=== PATIENT | female | born 1945 | race Caucasian/White ===

== ENCOUNTER 2018-12-27 15:39 | Outpatient (CLI) | payer MEDICARE, OTHER ==
[~2018-12-27] VITALS: Ht 160 cm; Wt 59.9 kg
[2018-12-27 16:04] VITALS: BP 142/82
[2018-12-28] MEDS ORDERED: ATEN25TA PO (12:28)
[2018-12-28] MEDS ORDERED: TRIA1TAB3 PO (12:28)
[2018-12-28] MEDS ORDERED: ASPI-586 PO (12:28)
[2018-12-28] MEDS ORDERED: DICL100G31 TP (12:28)
[2018-12-28] MEDS ORDERED: LEVO100T PO (12:28)
== END 2018-12-27 16:05 | disposition home or self-care (01) ==
LOC: PREOP 15:39
PROVIDERS: ATTEND Podiatrist Foot & Ankle Surgery
DX: Z01.818 Encounter for other preprocedural examination (principal)
CPT/HCPCS: 87081

== ENCOUNTER 2019-01-15 09:12 | Day surgery (SDC) | payer MEDICARE, OTHER ==
[2019-01-15] VITALS (11 sets, daily range): BP systolic 115–141; BP diastolic 53–73
[~2019-01-15] VITALS: Ht 160 cm; Wt 59.9 kg
[~2019-01-15 09:12] MED LIST: ASPI-586 PO; ATEN25TA PO; DICL100G31 TP; LEVO100T PO; TRIA1TAB3 PO
[2019-01-15] MEDS ORDERED: ceFAZolin INJECTION 1,000 MG in WATER (STERILE) FOR INJECTION 10 ML IV ONE (09:15)
[2019-01-15] MEDS: LACTATED RINGERS 1,000 ML IV PRN ×2 (09:49→12:20)
[2019-01-15] MEDS ORDERED: ceFAZolin INJECTION 1,000 MG ONE (09:54)
[2019-01-15] MEDS ORDERED: WATER (STERILE) FOR INJECTION 10 ML ONE (09:54)
[2019-01-15] MEDS ORDERED: ONDANSETRON 4 MG/2 ML (SDV) Z0FRAN ONE ×3 (09:55→13:45)
[2019-01-15] MEDS ORDERED: FAMOTIDINE 20MG/2ML IV (PEPCID) ONE (09:55)
[2019-01-15] MEDS ORDERED: SCOPOLAMINE 1.5 MG (TRANSDERM-SCOP) PATCH ONE (09:56)
[2019-01-15] MEDS ORDERED: BUPIVACAINE 0.5% 30 ML (SENSORCAINE) VIAL ONE (10:26)
[2019-01-15] MEDS ORDERED: LIDOCAINE 1% INJ 20 ML 20 ML VIAL ONE (10:26)
[2019-01-15] MEDS ORDERED: DEXAMETHASONE 10 MG/ML (DECADRON) 1 ML VIAL ONE (10:26)
[2019-01-15] MEDS ORDERED: fentaNYL INJECTION 100 MCG/2 ML AMP ONE (10:35)
[2019-01-15] MEDS ORDERED: MIDAZOLAM 2 MG/2 ML (VERSED) VIAL ONE (10:36)
[2019-01-15] MEDS ORDERED: LIDOCAINE PF 2% 5 ML (XYLOCAINE) VIAL ONE (13:07)
[2019-01-15] MEDS ORDERED: SEVOFLURANE (ULTANE) 15 ML INHAL SOLN ONE (13:07)
[2019-01-15] MEDS ORDERED: proPOfol 200 MG/20 ML (DIPRIVAN) VIAL IV ONE (13:07)
--- NOTE | 2019-01-15 13:22 | Progress Note-Pre Operative ---
Pre-Operative Progress Note H&P Reviewed The H&P was reviewed, patient examined and no changes noted. Date Seen by Provider: Jan 15, 2019 Time Seen by Provider: 11:00 Date H&P Reviewed: Jan 15, 2019 Time H&P Reviewed: 11:00 Pre-Operative Diagnosis: Hallux valgus, hypertrophic 2nd, 3rd metatarsals, Hammertoes 2, 3, left TACO MARTINEZ DPM Jan 15, 2019 13:22 POS
--- NOTE | 2019-01-15 13:24 | Progress Note-Post Operative ---
Post-Operative Progess Note Surgeon (s)/Service Writer (s) Surgeon TACO MARTINEZ DPM Service Writer: none Pre-Operative Diagnosis Hallux valgus, hypertrophic 2nd, 3rd metatarsals, Hammertoes 2, 3, left Post-Operative Diagnosis Same plus subluxation of the 2nd and 3rd MTPJs Procedure & Operative Findings Date of Procedure 01/15/19 Procedure Performed/Findings Jose-Benito bunionectomy, 2nd and 3rd metatarsal osteotomies, 2nd and 3rd Hammertoe reduction, left foot Anesthesia Type General Estimated Blood Loss Estimated blood loss (mL): Minimal Specimens/Packing Specimens Removed None TACO MARTINEZ DPM Jan 15, 2019 13:24 POS
[2019-01-15] MEDS ORDERED: CEPH500C PO (13:28)
[2019-01-15] MEDS ORDERED: ACHD5005 PO (13:28)
[2019-01-15] MEDS ORDERED: MEPERIDINE (DEMEROL) INJ 50 MG/ML IVP ONE (13:30)
[2019-01-15] MEDS ORDERED: ONDANSETRON 4 MG/2 ML (SDV) Z0FRAN IVP PRN (13:30)
[2019-01-15] MEDS ORDERED: morphine INJ 10 MG/ML 1ML (SYR OR VIAL) IVP ONE (13:30)
--- NOTE | 2019-01-15 14:05 | NUR ---
TO AMB SURG FROM PAR PER CART. AWAKE, C/O LEFT THIGH PAIN AND CRAMPING, RATES 9 ON NUMERIC SCALE. INDENTATIONS IN SKIN OF UPPER THIGH NOTED FROM SURGICAL TOURNIQUET. STATES LEFT THIGH FEELS "KIND OF TINGLY". IS ABLE TO MOVE LEFT LEG, FEEL TOUCH ON UPPER AND LOWER LEG, SKIN PINK AND WARM. WARM BLANKETS APPLIED TO ANTERIOR AND POSTERIOR LEFT UPPER THIGH, AT BEDSIDE MASSAGING PT'S UPPER THIGH. DENIES LEFT FOOT PAIN. COBAN WRAPPED KERLIX DRESSING D/I TO LEFT FOOT, SPLINT SHOE APPLIED. C/O MILD NAUSEA, SIPS OF WATER AND SALTINE CRACKERS PROVIDED IN ANTICIPATION OF PAIN MEDICATION. LEFT FOOT ELEVATED, ICE PACK AT ANKLE. BED LOW, LOCKED, RAILS UP X2. CALL LIGHT TO PT AND AT SIDE.
[2019-01-15] MEDS ORDERED: HYDROcodone/APAP 5 MG/325 MG (LORTAB) TAB ONE (14:23)
--- NOTE | 2019-01-15 14:27 | NUR ---
HAS HAD CRACKERS AND SIPS OF WATER. LORTAB 5/325 MG, ONE TABLET, GIVEN PO.
[2019-01-15] MEDS ORDERED: HYDROcodone/APAP 5 MG/325 MG (LORTAB) TAB PO PRN (14:30)
--- NOTE | 2019-01-15 14:40 | Anesthesia-General Post-Op ---
General Patient Condition Mental Status/LOC: Same as Preop Cardiovascular: Satisfactory Nausea/Vomiting: Absent Respiratory: Satisfactory Pain: Controlled Complications: Absent Post Op Complications Complications None Follow Up Care/Instructions Patient Instructions None needed. Anesthesia/Patient Condition Patient Condition Patient is doing well, no complaints, stable vital signs, no apparent adverse anesthesia problems. No complications reported per nursing. CHERISE CLARK CRNA Jan 15, 2019 14:40 POS
--- NOTE | 2019-01-15 15:00 | NUR ---
RESTING QUIETLY IN BED, EYES CLOSED. AWAKENS EASILY. REPORTS LEFT THIGH PAIN IMPROVING, NOW RATED 4. NO CHANGE IN LEFT FOOT PAIN/SITE ASSESSMENTS. UNABLE TO VISUALIZE TOES OF LEFT FOOT DUE TO DRESSING. PT STATES SHE HAS A KNEE SCOOTER AT HOME FOR USE WITH NON-WEIGHT BEARING STATUS ON LEFT FOOT. REPORTS NAUSEA HAS EASED SOME.
--- NOTE | 2019-01-15 23:19 | OPERATIVE REPORT ---
DATE OF SERVICE: 01/15/2019 SURGEON: Augusta Gannon DPM PREOPERATIVE DIAGNOSES: 1. Hallux abductovalgus metatarsal primus varus, left. 2. Hypertrophic second and third metatarsals, left. 3. Hammer digit syndrome, left second and third digits. POSTOPERATIVE DIAGNOSES: 1. Hallux abductovalgus metatarsal primus varus, left. 2. Hypertrophic second and third metatarsals, left. 3. Hammer digit syndrome, left second and third digits. 4. Subluxed second metatarsal and third metatarsophalangeal joints. PROCEDURE: 1. Modified Jose-Benito bunionectomy. 2. Second and third metatarsal osteotomies. 3. Reduction of hammertoe 2nd and third digits all left foot. WOUND CLASS: Clean. ANESTHESIA: General. HEMOSTASIS: Pneumatic thigh tourniquet at 250 mmHg. INDICATIONS: This is a 73-year-old female presents complaining of a painful left foot. Conservative therapy has met with unsatisfactory results and the patient is agreeable to surgical intervention after risks and complications were discussed at length. No guarantees were extended to the patient and she is willing to proceed. DESCRIPTION OF PROCEDURE: The patient was brought back to the operating table, placed in secure supine position. General anesthetic was then induced. Appropriate timeout was performed. The left foot was anesthetized with a Cardona block as well as a digital block utilizing 10 mL of 1:1 mixture of 1% Xylocaine, 0.5% Marcaine left foot. The left foot was then prepped and draped in normal sterile manner. The left foot was then elevated and allowed to exsanguinate after which the tourniquet was inflated to 250 mmHg. Attention was then directed to the dorsal aspect of the first metatarsophalangeal joint where a 6 cm longitudinal linear incision was created. The incision was deepened in the same plane with great care to identify and retract all vital neurovascular structures. All the necessary blood vessels were cauterized as encountered. The incision was deepened down to the capsular tissue where a longitudinal capsulotomy was performed. This exposed the hypertrophic medial eminence to the first metatarsal head, which was reduced utilizing a power sagittal saw. The wound was flushed with copious amounts of normal saline. Blunt dissection was carried out into the first intermetatarsal space where a lateral release was performed. The conjoint tendon of the adductor hallucis was identified and then incised. A lateral capsulorrhaphy was performed as well as a release of the fibular sesamoidal ligament. The hallux was then forcibly adducted releasing any additional fibers holding in its abnormal position. Attention was redirected to the medial aspect of the first metatarsal where a Chevron-type osteotomy was performed. This allowed the capital fragment to translocate from medial to lateral and was fixated in an improved position utilizing a 0.062 threaded K-wire from proximal dorsal to plantar distal across the osteotomy. A second K wire was also utilized to secure the metatarsal in appropriate alignment. Again, the K wires were cut, flush with the first metatarsal cortices. The head of the first metatarsal was further contoured and smoothed utilizing a power bur. Attention was then directed to the diaphysis of the proximal phalanx of the left hallux. Subperiosteal dissection was carried out after which a wedge of bone was resected with the base medial and lateral cortices held intact. Once the wedge of bone was resected and the gap closed, there was good reduction of the lateral deviation of the hallux. Utilizing a private pilot hole, a 28-gauge monofilament wire was then able to be passed through the private pilot holes at the dorsal medial aspect of the osteotomy securing the osteotomy in a closed position. Closure was then performed in layers. Deep closure was performed with 3-0 Vicryl, superficial with 4-0 Vicryl and skin closed with 4-0 Prolene in a simple interrupted type stitch. Attention was then directed to the dorsal aspect of the second and third metatarsophalangeal joint area where a 5 cm longitudinal linear incision was created from the surgical neck of the metatarsal to the distal interphalangeal joint of the second and third digits. The incisions were deepened in the same plane with great care to identify and retract all vital neurovascular structures. All the necessary blood vessels were cauterized as encountered. The incision was deepened down to the extensor tendon where a Z slide lengthening was performed overlying the proximal phalanx of the second and third digits. The extensor tendon was reflected proximally and the extensor duncan released overlying the second and third metatarsophalangeal joints. Dorsal capsulorrhaphy was then performed and it was cleared at the base of the proximal phalanx that was articulating with the surgical neck area of the second and third metatarsals. There is complete subluxation of the second and third metatarsophalangeal joints. Next, utilizing a power sagittal saw, a wedge bone was resected from the surgical neck of the second and third metatarsals with the base dorsal and the apices plantarly. This allowed the second metatarsal and third metatarsal to be shortened as well as correct alignment where the base of the proximal phalanx could smoothly articulate with the second and third metatarsal heads again. Utilizing a standard technique, a 2.0 snap-off screw of 12 mm of length was driven from dorsal proximal to plantar distal across the osteotomies. Excellent bony apposition fixation was appreciated at this time. The wounds were flushed with copious amounts of normal saline throughout the procedure. Attention was then directed to the proximal interphalangeal joint of the second and third digits where a peg-in-hole type arthrodesis was performed. The head of the proximal phalanx was fashioned into a peg utilizing power sagittal saw and power bur and a bur was utilized to create a hole in the base of the middle phalanx. Next, a 0.054 smooth K-wire was driven down the toe securing the arthrodesis in a rectus alignment. The excess K wire at the end of the toe was cut and a protective ball placed over the end of the wire. The wounds were flushed with copious amounts of normal saline and closure was performed in layers. Deep closure was performed with 3-0 Vicryl, superficial with 4-0 Vicryl, skin closure with 4-0 Prolene in a horizontal mattress type stitch. Postoperative injection consisted of 12 mL of 1:1 mixture of 1% Xylocaine, 0.5% Marcaine injected in a local infusion to the surgical sites. Postoperative dressing consisted of Betadine soaked Adaptic, sterile 4 x 4, sterile Kerlix all secured with Coban wrap. The patient tolerated the anesthesia and procedure well and was transported from the operating room to the recovery area with vital signs stable and vascular status intact to all digits of the left foot. Postoperative instructions were given today as well as prescription for Keflex and Vicodin. I will see the patient back in 10 days' period of time or sooner if necessary. Job ID: [id number] DocumentID: [id number] Dictated Date: 01/15/2019 13:40:48 Irrigator Date: 01/15/2019 23:18:38 Dictated By: NALINI LINK
--- OUTSIDE RECORDS SUMMARY | 2019-02-09 11:32 | XMS REPORT ---
Author Author [facility] Medic al Staff, YUDITH Munoz Organization [facility] Address [address] [id number] Phone [phone] Summary purpose TRANSITION OF CARE AUTO GENERATION Chief Complaint and Reason for Visit No authorized Reason for Visit (Admitting Diagnosis) is available for this visit . Problem list No authorized problems tracked for continuity of care are available for this vis it. Encounters No authorized problems tracked for encounter diagnoses are available for this vi sit. Medications No medications recorded for this patient visit Allergies, adverse reactions, alerts Allergen Category Ingredient Status Reaction Severity Onset No Known Drug Allergies No known drug allergies No Known Drug Al lergies Confirmed or Verified plastic tape Miscellaneous Allergy plastic tape Confirmed or Verified Immunizations No immunizations recorded for this patient visit Relevant diagnostic tests and/or laboratory data RESULTS Chemistry [id number]:15:00 Result Normal Range Units Sodium 143 134-145 mEq/l Potassium 4.3 3.5-5.1 mEq/l Chloride 101 98-107 mEq/l CO2 H 36.1 22-28 mEq/l Glucose 91 70-105 mg/dl BUN H 31 7-18 mg/dl Creatinine H 1.33 0.6-1.0 mg/dl Calcium 9.4 8.4-10.2 mg/dl PO4 4.0 1.9-4.5 mg/dl Albumin 3.7 3.5-5 g/dl Magnesium 1.7 1.7-2.8 mg/dl Osmolality 291.1 280-300 mOsm/L Anion GAP L 5.9 8-16 BUN/Creatinine Ratio H 23.3 10-20 Estimated GFR L 39 >= 60 mL/min /1.7 History of procedures No procedures recorded for this patient visit. Functional status No functional or cognitive status observations are available for this visit. Vital signs No authorized vital signs are available for this visit. Social history No Social History or smoking status observations were recorded for this visit. ( Unknown if ever smoked.) Treatment Plan No treatment plan text is available for this visit. Hospital discharge instructions No discharge instruction text is available for this visit.
--- OUTSIDE RECORDS SUMMARY | 2019-02-09 11:32 | XMS REPORT ---
Author Author [facility] Medic al Staff, YUDITH Munoz Organization [facility] Address [address] [id number] Phone [phone] Summary purpose TRANSITION OF CARE AUTO GENERATION [...] Relevant diagnostic tests and/or laboratory data RESULTS Radiology Results [id number]:12:00 CT ABD/PEL W CONTRAST PACs Image DATE OF EXAM: Dec 02 2014 [id number] ABD/PELV W CON TRAST : RADIOLOGY REPORT DATE OF SERVICE:12/02/14 HISTORY:Follow-up colon carcinoma, h istory breast carcinoma. CT ABDOMEN/PELVIS WITH CONTRAST 0900 HOURS Through lower thorax pulmonary parenchym al windows, the mediastinum shows no active pathology.The heart is not enlarged.Right mastectomy changes noted. The liver shows mild fatty infiltration. The posterior aspect of the right lobe of the liver is identified si milar to the prior study dated 06/04/14.Small benign cysts are noted .Post-cholecystectomy status is demonstrated.Spleen shows no active pathology.The pancreas appears normal.The adrenal glands are not en larged.Benign-appearing renal cysts are identified similar to prior st udy.The largest is 4.1 cm on the right.There has been r emoval of the cecum.No adenopathy is seen.No recurrent mass lesion is defined.The bladder is clear.No free air or free fluid i s demonstrated.Bowel distribution shows no active pathology. The bony structures do not show evidence of obvious abnormality.Comp ared to the prior study dated 06/04/14, similar appearance is demonstrated. IMPRESSION: 1)Post-right mastectomy status. 2)Post-cholecystectomy status. 3)Small benign hepatic cysts. 4)Small benign right renal cysts. 5)Post-surgical change, right colon, with resection. 6)No evidence of metastatic disease and no change compared to prior study dated 06/04/14. Isma Espinosa DO 12/02/2014 10:09: / 12/02/2014 11:33:31 cc:Dr. Tenzin Coffman This document has been electronically Signed by: On: DATE OF EXAM: Dec 02 2014 [id number] ABD/PELV W CON TRAST : RADIOLOGY REPORT DATE OF SERVICE:12/02/14 HISTORY:Follow-up colon carcinoma, h istory breast carcinoma. CT ABDOMEN/PELVIS WITH CONTRAST 0900 HOURS Through lower thorax pulmonary parenchym al windows, the mediastinum shows no active pathology.The heart is not enlarged.Right mastectomy changes noted. The liver shows mild fatty infiltration. The posterior aspect of the right lobe of the liver is identified si milar to the prior study dated 06/04/14.Small benign cysts are noted .Post-cholecystectomy status is demonstrated.Spleen shows no active pathology.The pancreas appears normal.The adrenal glands are not en larged.Benign-appearing renal cysts are identified similar to prior st y.The largest is 4.1 cm on the right.There has been r emoval of the cecum.No adenopathy is seen.No recurrent mass lesion is defined.The bladder is clear.No free air or free fluid i s demonstrated.Bowel distribution shows no active pathology. The bony structures do not show evidence of obvious abnormality.Comp ared to the prior study dated 06/04/14, similar appearance is demonstrated. IMPRESSION: 1)Post-right mastectomy status. 2)Post-cholecystectomy status. 3)Small benign hepatic cysts. 4)Small benign right renal cysts. 5)Post-surgical change, right colon, with resection. 6)No evidence of metastatic disease and no change compared to prior study dated 06/04/14. Isma Espinosa DO 12/02/2014 10:09: / 12/02/2014 11:33:31 cc:Dr. Tenzin Coffman This document has been electronically Signed by: ISMA ESPINOSA DO On: Dec 02 20141:12P Result Amended on 2014-12-02 at 13:12:11 . Previous status was CT. CT CHEST W/CONT PACs Image DATE OF EXAM: Dec 02 2014 [id number] CHEST W CONTRA ST : RADIOLOGY REPORT DATE OF SERVICE: 12/02/14 HISTORY: Followup colon carcinoma, histo ry of breast carcinoma. 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 This appears to be substernal and does shift the trachea to the right. No change compared to the prior study dated 06/04/2014. Mediastinal adenopathy is not seen. The heart is not enlarged. Post right mastectomy changes noted. The pulmonary parenchymal windows do not show nodule or mass. No pleural thickening or pleural e ffusion can be seen. No change is demonstrated compared to prior study. There is no aneurysmal change. IMPRESSION: 1. 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 2. No evidence of metastatic disease. 3. No change compared to prior study kya ed 06/04/2014. Isma Espinosa DO /nm12/02/2014 10:12:00 / 12/02/2014 11:23:45 cc:Dr. Tenzin Coffman This document has been electronically Signed by: On: DATE OF EXAM: Dec 02 2014 [id number] CHEST W CONTRA ST : RADIOLOGY REPORT DATE OF SERVICE: 12/02/14 HISTORY: Followup colon carcinoma, histo ry of breast carcinoma. 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 This appears to be substernal and does shift the trachea to the right. No change compared to the prior study dated 06/04/2014. Mediastinal adenopathy is not seen. The heart is not enlarged. Post right mastectomy changes noted. The pulmonary parenchymal windows do not show nodule or mass. No pleural thickening or pleural e ffusion can be seen. No change is demonstrated compared to prior study. There is no aneurysmal change. IMPRESSION: 1. 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 2. No evidence of metastatic disease. 3. No change compared to prior study kya ed 06/04/2014. Isma Espinosa DO /nm12/02/2014 10:12:00 / 12/02/2014 11:23:45 cc:Dr. Tenzin Coffman This document has been electronically Signed by: ISMA ESPINOSA DO On: Dec 02 20141:12P Result Amended on 2014-12-02 at 13:12:13 . Previous status was CT. History of procedures No procedures recorded for [...]
--- OUTSIDE RECORDS SUMMARY | 2019-02-09 11:32 | XMS REPORT ---
Author Author [facility] Medic al YUDITH Rivera Organization [facility] Address [address] [id number] Phone [phone] Care Team Providers Care Nurse Sitter Name Role Phone SHANTI GUNN APRN PP [phone] Summary purpose TRANSITION OF CARE AUTO GENERATION [...] tests and/or laboratory data RESULTS Radiology Results [id number]:30:00 US Guided Cyst Aspiration PACs Image DATE OF EXAM: Aug 21 2015 [id number] GUIDED FNA ANY SITE- LEFT: RADIOLOGY REPORT DATE OF SERVICE: 08/21/15 HISTORY: Enlargement of the left thyroid lobe. There is diffuse enlargement of the left lobe and there i s a heterogeneous nodule in its anterolateral aspect. ULTRASOUND GUIDED LEFT THYROID BIOPSY 10 00 HOURS [facility] The skin of the left neck was cleansed with ChloraPrep. Local anesthesia was performed with 5 mL 1% Xylocaine. Four separate fine need le aspirates were performed under ultrasound guidance with permanent image documentation obtained. Two samples were obtained within the sma ller nodule and 2 samples were obtained within the otherwise diffusely enlarged left lobe. These were submitted as a single sample for cytolog ic analysis. Hemostasis was spontaneous. The patient tolerated the p rocedure well and left the Imaging Department in stable condition. IMPRESSION: Successful ultrasound guided fine needle aspiration biopsy of the left thyroid. MD LOREN Herrera/az08/21/2015 11:55:08/07 13:07:05 cc:Dr. Tenzin Coffman This document has been electronically Signed by: On: DATE OF EXAM: Aug 21 2015 [id number] GUIDED FNA ANY SITE- LEFT: RADIOLOGY REPORT DATE OF SERVICE: 08/21/15 HISTORY: Enlargement of the left thyroid lobe. There is diffuse enlargement of the left lobe and there i s a heterogeneous nodule in its anterolateral aspect. ULTRASOUND GUIDED LEFT THYROID BIOPSY 10 00 HOURS [facility] The skin of the left neck was cleansed with ChloraPrep. Local anesthesia was performed with 5 mL 1% Xylocaine. Four separate fine need le aspirates were performed under ultrasound guidance with permanent image documentation obtained. Two samples were obtained within the sma ller nodule and 2 samples were obtained within the otherwise diffusely enlarged left lobe. These were submitted as a single sample for cytolog ic analysis. Hemostasis was spontaneous. The patient tolerated the p rocedure well and left the Imaging Department in stable condition. IMPRESSION: Successful ultrasound guided fine needle aspiration biopsy of the left thyroid. Taj Pires MD Mena/az08/21/2015 11:55:08/07 13:07:05 cc:Dr. Tenzin Coffman This document has been electronically Signed by: TAJ PIRES MD On: Aug 21 20152:30P Result Amended on 2015-08-21 at 14:30:46 . Previous status was SD. History of procedures No procedures recorded for [...]
--- OUTSIDE RECORDS SUMMARY | 2019-02-09 11:33 | XMS REPORT ---
Author Author [facility] Medic al Staff, YUDITH Munoz Organization [facility] Address [address] [place] [place] [id number] Phone [phone] Summary purpose TRANSITION OF CARE AUTO GENERATION [...] tests and/or laboratory data RESULTS Radiology Results [id number]:01:00 Thyroid Scan Dual Uptake PACs Image DATE OF EXAM: Aug 05 2015 [id number] SCAN DUAL UPTAKE : RADIOLOGY REPORT DATE OF SERVICE: 08/04/15 HISTORY: Left thyroid mass RADIONUCLIDE THYROID SCAN AND DUAL UPTAK E I-123 STUDY 1115 HOURS 280 uCi I-123 was administered. Four vega r uptake is abnormally low at 2.9%. 24 hour uptake is slightly subnorm al at 7.8%. Thyroid scan was accomplished with scanning in the AP and bilateral oblique projections. The right lobe is homogenous. The left l obe is enlarged. There is a large oval area of absent uptake in the mid and lateral left thyroid. There is a rim of functioning residual t issue medially in the left lobe. IMPRESSION: 1. Decreased I-123 uptake which may bindu marc mild hypothyroidism. Correlation with thyroid function studie s is recommended. 2. Large nonfunctional area in the left lobe of the thyroid. Although the sonographic appearance is of relativ angel low suspicion, malignancy is not excluded. Biopsy is recommended. Taj Pires MD MWMena/tx08/05/2015 13:14:07/09 13:28:50 cc:Dr. Shandra Holt APRN This document has been electronically Signed by: On: DATE OF EXAM: Aug 05 2015 [id number] SCAN DUAL UPTAKE : RADIOLOGY REPORT DATE OF SERVICE: 08/04/15 HISTORY: Left thyroid mass RADIONUCLIDE THYROID SCAN AND DUAL UPTAK E I-123 STUDY 1115 HOURS 280 uCi I-123 was administered. Four vega r uptake is abnormally low at 2.9%. 24 hour uptake is slightly subnorm al at 7.8%. Thyroid scan was accomplished with scanning in the AP and bilateral oblique projections. The right lobe is homogenous. The left l obe is enlarged. There is a large oval area of absent uptake in the mid and lateral left thyroid. There is a rim of functioning residual t issue medially in the left lobe. IMPRESSION: 1. Decreased I-123 uptake which may bindu marc mild hypothyroidism. Correlation with thyroid function studie s is recommended. 2. Large nonfunctional area in the left lobe of the thyroid. Although the sonographic appearance is of relativ angel low suspicion, malignancy is not excluded. Biopsy is recommended. Taj Pires MD MWMena/nh/ 13:14:07/09 13:28:50 cc:Dr. Shandra Holt APRN This document has been electronically Signed by: TAJ PIRES MD On: Aug 05 20152:01P Result Amended on 2015-08-05 at 14:01:12 . Previous status was NV. History of procedures Procedure Code Code Type Description Date Performed Performing Physician [id number] CPT-4 THYROID IMAGING W/BLOOD FLOW 08-05-2015 SHANDRA BUTTS [id number] CPT-4 IODINE I-123 SOD IODIDE HERMILO 08-05-2015 SHANDRA BUTTS Functional status No functional or cognitive status [...]
--- OUTSIDE RECORDS SUMMARY | 2019-02-09 11:33 | XMS REPORT ---
Author Author [facility] Medic al Staff, YUDITH Munoz Organization [facility] Address [address] [id number] Phone [phone] Summary purpose TRANSITION OF CARE AUTO GENERATION [...] tests and/or laboratory data RESULTS Radiology Results 08-01-646419:47:00 CT ABD/PEL W CONTRAST PACs Image DATE OF EXAM: May 29 2015 [id number] ABD/PELV W CON TRAST : RADIOLOGY REPORT DATE OF SERVICE: 05/29/15 HISTORY: Followup colon carcinoma, remot e history of breast carcinoma. CT ABDOMEN AND PELVIS WITH CONTRAST0 855 HOURS Axial scans were obtained at 5 mm interv als following administration of oral and intravenous contrast. 75 mL Iso yolanda-300 was utilized for intravenous enhancement. The liver shows fatty change. There are scattered small hepatic cysts. The bile ducts are normal in caliber. Th e gallbladder is surgically absent. The pancreas and spleen are norm al. There are bilateral renal cysts. There is a large anterior right r enal cyst measuring 4.7 x 4.5 cm that has increased slightly in size sin e the study of 12/02/2014. No solid renal masses are present. There is no abdominal or pelvic mass or lymphadenopathy. There are changes of pr ior hysterectomy. The bladder is normal. There is no ascites. The bowel l oops are normal. IMPRESSION: No evidence of abdominal or pelvic metastatic disease. Bilateral renal cysts. Status post right mastectomy, cholecystectomy, and hysterectomy. MD LOREN Herrera/ms05/29/2015 09:16:05/09 09:19:26 cc:Dr. Tenzin Coffman This document has been electronically Signed by: On: DATE OF EXAM: May 29 2015 [id number] ABD/PELV W CON TRAST : RADIOLOGY REPORT DATE OF SERVICE: 05/29/15 HISTORY: Followup colon carcinoma, remot e history of breast carcinoma. CT ABDOMEN AND PELVIS WITH CONTRAST0 855 HOURS Axial scans were obtained at 5 mm interv als following administration of oral and intravenous contrast. 75 mL Iso yolanda-300 was utilized for intravenous enhancement. The liver shows fatty change. There are scattered small hepatic cysts. The bile ducts are normal in caliber. Th e gallbladder is surgically absent. The pancreas and spleen are norm al. There are bilateral renal cysts. There is a large anterior right r enal cyst measuring 4.7 x 4.5 cm that has increased slightly in size sinc e the study of 12/02/2014. No solid renal masses are present. There is no abdominal or pelvic mass or lymphadenopathy. There are changes of pr ior hysterectomy. The bladder is normal. There is no ascites. The bowel l oops are normal. IMPRESSION: No evidence of abdominal or pelvic metastatic disease. Bilateral renal cysts. Status post right mastectomy, cholecystectomy, and hysterectomy. MD LOREN Herrera/ms05/29/2015 09:16:05/09 09:19:26 cc:Dr. Tenzin Coffman This document has been electronically Signed by: MIC CAMPOS MD On: May 29 2015 10:47A Result Amended on 2015-05-29 at 10:47:55 . Previous status was MO. CT CHEST W/CONT PACs Image DATE OF EXAM: May 29 2015 [id number] CHEST W CONTRA ST : RADIOLOGY REPORT DATE OF SERVICE: 05/29/15 HISTORY: Followup colon carcinoma, remot e history of breast carcinoma. CT CHEST WITH CONTRAST 0855 HOURS Axial scans were obtained at 5 mm interv als following administration of 75 mL Isovue-300. Comparison is made wit h 12/02/2014. There are no metastatic pulmonary nodule s. There are a few tiny scattered calcified pulmonary granulomas . There is no hilar or mediastinal lymphadenopathy. There are n o axillary masses. Again noted is marked enlargement of the left thyroi d lobe with substernal extension. This has a heterogeneous appe arance and measures 5 cm AP and 4 cm transverse. This is unchanged from the prior study. There are changes of prior right mastectomy. There is no pleural effusion or pleural based mass. There is diffuse fat ty change in the liver. IMPRESSION: No evidence of metastatic di sease in the chest. Stable calcified pulmonary granulomas. Fatty li bushra. Large left lobe thyroid mass unchanged from prior study. MD LOREN Herrera/dwight05/29/2015 09:02:05/09 09:08:07 cc:Dr. Tenzin Coffman This document has been electronically Signed by: On: DATE OF EXAM: May 29 2015 [id number] CHEST W CONTRA ST : RADIOLOGY REPORT DATE OF SERVICE: 05/29/15 HISTORY: Followup colon carcinoma, remot e history of breast carcinoma. CT CHEST WITH CONTRAST 0855 HOURS Axial scans were obtained at 5 mm interv als following administration of 75 mL Isovue-300. Comparison is made wit h 12/02/2014. There are no metastatic pulmonary nodule s. There are a few tiny scattered calcified pulmonary granulomas . There is no hilar or mediastinal lymphadenopathy. There are n o axillary masses. Again noted is marked enlargement of the left thyroi d lobe with substernal extension. This has a heterogeneous appe arance and measures 5 cm AP and 4 cm transverse. This is unchanged from the prior study. There are changes of prior right mastectomy. There is no pleural effusion or pleural based mass. There is diffuse fat ty change in the liver. IMPRESSION: No evidence of metastatic di sease in the chest. Stable calcified pulmonary granulomas. Fatty li bushra. Large left lobe thyroid mass unchanged from prior study. MD LOREN Herrera/dwight05/29/2015 09:02:05/09 09:08:07 cc:Dr. Tenzin Coffman This document has been electronically Signed by: MIC CAMPOS MD On: May 29 2015 10:47A Result Amended on 2015-05-29 at 10:47:53 . Previous status was [place]. History of procedures No procedures recorded for [...]
--- OUTSIDE RECORDS SUMMARY | 2019-02-09 11:33 | XMS REPORT ---
Author Author [facility] Medic al YUDITH Rivera Organization [facility] Address [address] [place], [place] [address] Phone [phone] Summary purpose TRANSITION OF CARE AUTO GENERATION [...] tests and/or laboratory data RESULTS Radiology Results 60-28-244225:59:00 L Screening Digital Mammo PACs Image DATE OF EXAM: Nov 18 2014 [facility] 0837-UNILAT L SCREEN DIG MAMMO : RADIOLOGY REPORT DATE OF SERVICE:11/18/2014 HISTORY: Screening for possible malignan t neoplasm, carcinoma in situ of breast UNILATERAL LEFT SCREENING DIGITAL MAMMOG YONATHAN WITH iCAD SecondLook 7.2- H+ 1030 HOURS The breast parenchyma is heterogenously dense. There is some chronic benign appearing calcification. No mass or architectural distortion are seen. IMPRESSION: Benign BI-RADS category II study. Michael Causey DO MW/cdj1 17:59:00 / 11/07 18:28:43 cc:Kylie Jaquez This document has been electronically Signed by: On: DATE OF EXAM: Nov 18 2014 [facility] 0837-UNILAT L SCREEN DIG MAMMO : RADIOLOGY REPORT DATE OF SERVICE:11/18/2014 HISTORY: Screening for possible malignan t neoplasm, carcinoma in situ of breast UNILATERAL LEFT SCREENING DIGITAL MAMMOG YONATHAN WITH iCAD SecondLook 7.2- H+ 1030 HOURS The breast parenchyma is heterogenously dense. There is some chronic benign appearing calcification. No mass or architectural distortion are seen. IMPRESSION: Benign BI-RADS category II study. Michael Causey DO MW/cdj1 17:59:00 11/07 18:28:43 cc:Kylie Jaquez This document has been electronically Signed by: MICHAEL CAUSEY DO On: Nov 20 20142:59P Result Amended on 2014-11-20 at 14:59:16 . Previous status was [place]. History of procedures Procedure Code Code Type Description Date Performed Performing Physician 42726 CPT-4 MAMMOGRAM, SCREENING 11-18-2014 KYLIE GUNN 09703 CPT-4 COMP SCREEN MAMMOGRAM ADD-ON 11-18-2014 KYLIE GUNN Functional status No functional or cognitive status [...]
--- OUTSIDE RECORDS SUMMARY | 2019-02-09 11:33 | XMS REPORT ---
Author Author [facility] Medic al , YUDITH Munoz Organization [facility] Address [address] [place] [id number] Phone [phone] Summary purpose TRANSITION OF CARE AUTO GENERATION [...] visit Relevant diagnostic tests and/or laboratory data No authorized results are available for this patient visit History of procedures No procedures recorded for [...]
--- OUTSIDE RECORDS SUMMARY | 2019-02-09 11:33 | XMS REPORT ---
Author Author [facility] Medic al YUDITH Rivera Organization [facility] Address [address] [id number] Phone [phone] Care Team Providers Care Hydraulic Modeling Engineer Name Role Phone OSITO TAVERAS MD PP [phone] OSITO TAVERAS MD, PP [phone] Summary purpose TRANSITION OF CARE AUTO GENERATION Chief Complaint and Reason for Visit Admit Diagnosis 1 RE/O CYST RIGHT ABD COLONO SCOPY Problem list No authorized problems tracked for continuity of care are available for this vis it. Encounters The following conditions tracked for encounter diagnoses were recorded for this visit: Finding or Diagnosis Status Certainty Chronicity Onset *COLONOSCOPY Active Medications No medications recorded for this patient [...] recorded for this patient visit. Functional status Functional Status Finding Observation Time Hearing Prob Loc none 03-51-050459:30 Vision Problems no :30 Ambulation Asst Dev none 21-53-862365:30 Range of Motion full :00 Muscle Strength RUE 5 ROM full resist :00 Muscle Strength RLE 5 ROM full resist :00 Muscle Strength LUE 5 ROM full resist :00 Muscle Strength LLE 5 ROM full resist :00 Transfers independent 66-91-662625:00 Ambulation up ad timothy :00 Balance steady 26-13-332133:00 Bathing Assistance none 05-69-028771:30 Eating Assistance none 03-74-630917:30 Dressing Assistance none 46-19-411649:30 Toileting Assistance none :30 Transfer Assistance none :30 Decline Slf Care/Mob no :30 Phys Cond Stable yes :30 Nutrition normal 45-60-298048:00 Diet regular : Oral Cavity moist and intact :00 Teeth intact :00 Dental Hygiene good :00 Abdomen Appearance flat : Abdomen non-tender : Bowel Sounds present : NG Tube no :00 Feeding Tube none :00 Pan no : Ostomy no : Stool other (specify) Comment: none at this time : Color other (specify) Comment: clear per pt :56 Consistency liquid :56 Urination normal : Quality sym/unlabored : Cough absent : Secretions no : Breath Sounds RUL clear :00 Breath Sounds RML clear :00 Breath Sounds RLL clear :00 Breath Sounds SORAYA clear :00 Breath Sounds LLL clear :00 Airway natural :00 Chest Tube no :00 Oxygen no 84-13-227213:00 C-PAP no :00 BI-PAP no :00 Temp >100.4 no :00 Temp <96.8 yes Comment: 96.4 :00 Chills with rigors no :00 HR > 90bpm no :00 Respirations > 20 no 56-72-113475:00 Systolic <90 no 16-45-399430:00 headache stiff neck no :00 Rapid Resp no 38-42-329726:00 VAD Type juanita-cath :00 VAD Location Left chest :00 VAD Site Info discontinued : VAD Site Appearance WNL : VAD Site Color clear : VAD Site Patent yes :00 VAD Dressing Changed yes : VAD Dressing Type occlusive : Nursing Note Up to bathroom, dressed. Dis missed amb in good condition accompanied by and RN, through east entrance to private car. :20 Cognitive Status Finding Observation Time Learning Ability comprehends well : Neurological no :10 Psychological no :10 Physical no :10 Hearing no :10 Ground Service Equipment Mechanic Needed no : Sign Language no :10 Emotional no :10 Vision no :10 Laguage no :10 Financial no :10 Vital signs Type Value Date Respiration Rate 16breaths per minute : Pulse 58beats per minute : Oxygen Saturation 99% :00 BP Systolic 114mmHg :00 BP Diastolic 42mmHg :00 Temperature 96.4F :00 Height 63inches :28 Weight 142LB :28 Social history Type Value Smoking Status NEVER SMOKER Treatment Plan No treatment plan text is available for this visit. Hospital discharge instructions Discharge Date/Time 06-21-14 1320 Accompanied By Deepak Relationship spouse/signif other Dismissal Condition good Disposition on DC home Valuables no DC Inst/Educ Give yes Exit Care Educ Given yes Med/Side Effects Rev no (explain) Comment: no new meds PNE Vac 2011 Flu Vac 11/08/12 Tetanus Vac 2010 Diet Explained yes Follow up appt other (specify) Comment: none required, to follow-up with Dr Yates as needed.
--- OUTSIDE RECORDS SUMMARY | 2019-02-09 11:33 | XMS REPORT ---
Author Author [facility] Medic al YUDITH Rivera Organization [facility] Address [address] [id number] Phone [phone] Care Team Providers Care Psychology Lecturer Name Role Phone OSITO TAVERAS MD PP [phone] OSITO TAVERAS MD, PP [phone] Summary purpose TRANSITION OF CARE AUTO GENERATION [...] Finding Observation Time Hearing Prob Loc none 72-70-465182:30 Vision Problems no :30 Ambulation Asst Dev none 54-38-061643:30 Range of Motion full :00 Muscle Strength RUE 5 ROM full resist :00 Muscle Strength RLE 5 ROM full resist :00 Muscle Strength LUE 5 ROM full resist :00 Muscle Strength LLE 5 ROM full resist :00 Transfers independent 33-63-023263:00 Ambulation up ad timothy :00 Balance steady 34-51-194132:00 Bathing Assistance none 50-07-484940:30 Eating Assistance none 45-96-066042:30 Dressing Assistance none 77-00-941998:30 Toileting Assistance none :30 Transfer Assistance none :30 Decline Slf Care/Mob no :30 Phys Cond Stable yes :30 Nutrition normal 02-93-822981:00 Diet regular : Oral Cavity moist and [...] :00 Chest Tube no :00 Oxygen no 65-05-539793:00 C-PAP no :00 BI-PAP no :00 Temp >100.4 no :00 Temp <96.8 yes Comment: 96.4 :00 Chills with rigors no :00 HR > 90bpm no :00 Respirations > 20 no 30-61-920553:00 Systolic <90 no 56-20-635400:00 headache stiff neck no :00 Rapid Resp no 81-96-766105:00 VAD Type juanita-cath :00 VAD Location Left [...] :10 Physical no :10 Hearing no :10 Parakeet Raiser Needed no : Sign Language no :10 [...]
--- OUTSIDE RECORDS SUMMARY | 2019-02-09 11:33 | XMS REPORT ---
Author Author [facility] Medic al Staff, YUDITH Munoz Organization [facility] Address [address] [id number] Phone [phone] Summary purpose TRANSITION OF CARE AUTO GENERATION [...] tests and/or laboratory data RESULTS Radiology Results 43-67-820255:12:00 CT ABD/PEL W CONTRAST PACs Image DATE OF EXAM: Dec 02 2014 [id number] ABD/PELV W CON TRAST : RADIOLOGY REPORT [...] DO 12/02/2014 10:09: / 12/02/2014 11:33:31 cc:Dr. Shandra Coffman This document has been electronically Signed by: On: DATE OF EXAM: Dec 02 2014 [id number] ABD/PELV W CON TRAST : RADIOLOGY REPORT [...] DO 12/02/2014 10:09: / 12/02/2014 11:33:31 cc:Dr. Shandra Coffman This document has been electronically Signed by: ISMA ESPINOSA DO On: Dec 02 20141:12P Result Amended on 2014-12-02 at 13:12:11 . Previous status was [place]. CT CHEST W/CONT PACs Image DATE OF EXAM: Dec 02 2014 [id number] CHEST W CONTRA ST : RADIOLOGY REPORT [...] study kya ed 06/04/2014. Isma Espinosa DO /dc12/02/2014 10:12:00 / 12/02/2014 11:23:45 cc:Dr. Shandra Coffman This document has been electronically Signed by: On: DATE OF EXAM: Dec 02 2014 [id number] CHEST W CONTRA ST : RADIOLOGY REPORT [...] study kya ed 06/04/2014. Isma Espinosa DO /dc12/02/2014 10:12:00 / 12/02/2014 11:23:45 cc:Dr. Shandra Coffman This document has been electronically Signed by: ISMA ESPINOSA DO On: Dec 02 20141:12P Result Amended on 2014-12-02 at 13:12:13 . Previous status was [place]. History of procedures Procedure Code Code Type Description Date Performed Performing Physician 46364 CPT-4 CT ABDOMEN&PELVIS W/CONTRAST 12-02-2014 SHANDRA NABBOUT Q9967 CPT-4 LOCM 300-399MG/ML IODINE,1ML 12-02-2014 SHANDRA NABBOUT 14218 CPT-4 CT THORAX W/DYE 12-02-2014 SHANDRA NAB BOUT J1642 CPT-4 INJ HEPARIN SODIUM PER 10 U 12-02-2014 SHANDRA NABBOUT Functional status No functional or cognitive status [...]
--- OUTSIDE RECORDS SUMMARY | 2019-02-09 11:33 | XMS REPORT ---
Author Author [facility] Medic al YUDITH Rivera Organization [facility] Address [address] [id number] Phone [phone] Care Team Providers Care Rn Operating Room Name Role Phone SHANTI GUNN APRN PP [phone] Summary purpose TRANSITION OF CARE AUTO GENERATION [...] tests and/or laboratory data RESULTS Radiology Results 77-16-434004:30:00 US Guided Cyst Aspiration PACs Image DATE OF EXAM: Aug 21 2015 [id number] GUIDED FNA ANY SITE- LEFT: RADIOLOGY REPORT DATE OF SERVICE: 08/21/15 HISTORY: Enlargement of the left thyroid lobe. There is diffuse enlargement of the left lobe and there i s a heterogeneous nodule in its anterolateral aspect. ULTRASOUND GUIDED LEFT THYROID BIOPSY 10 00 HOURS [facility] The skin of the left [...] biopsy of the left thyroid. MD LOREN Herrera/ky08/21/2015 11:55:08/07 13:07:05 cc:Dr. Tenzin Coffman This document has been electronically Signed by: On: DATE OF EXAM: Aug 21 2015 [id number] GUIDED FNA ANY SITE- LEFT: RADIOLOGY REPORT DATE OF SERVICE: 08/21/15 HISTORY: Enlargement of the left thyroid lobe. There is diffuse enlargement of the left lobe and there i s a heterogeneous nodule in its anterolateral aspect. ULTRASOUND GUIDED LEFT THYROID BIOPSY 10 00 HOURS [facility] The skin of the left [...] of the left thyroid. Taj Pires MD Mena/ky08/21/2015 11:55:08/07 13:07:05 cc:Dr. Tenzin Coffman This document has been electronically Signed by: TAJ PIRES MD On: Aug 21 20152:30P Result Amended on 2015-08-21 at 14:30:46 . Previous status was [place]. History of procedures No procedures recorded for [...]
--- OUTSIDE RECORDS SUMMARY | 2019-02-09 11:33 | XMS REPORT | Referral Summary ---
Author Author [facility] Organization [facility] Address Unknown Phone Unavailable Care Team Providers Care Retail Supervisor Name Role Phone Kylie Holt PCP Encounter [facility] [id number] Date(s): 09/07/18 - 09/07/18 [facility] [address] [place] [address] [phone] Discharge Disposition: 01-Home or Self Care Attending Physician: Arsenio Lew MD Admitting Physician: Arsenio Lwe MD Vital Signs No data available for this section Problem List No data available for this section Allergies, Adverse Reactions, Alerts No data available for this section Medications No data available for this section Results No data available for this section Immunizations No data available for this section Procedures No data available for this section Social History Social History Type Response Assessment and Plan No data available for this section
--- OUTSIDE RECORDS SUMMARY | 2019-02-09 11:33 | XMS REPORT | Referral Summary ---
Author Author [facility] Organization [facility] Address Unknown Phone Unavailable Care Team Providers Care Cable Television Program Director Name Role Phone Kylie Holt PCP Encounter [facility] [id number] Date(s): 09/07/18 - 10/07/18 [facility] [address] [place] [address] Encounter Diagnosis Illness, unspecified (Final) - Discharge Disposition: 01-Home or Self Care Attending Physician: Arsenio Lew MD Vital Signs No data available for [...]
--- OUTSIDE RECORDS SUMMARY | 2019-02-09 11:33 | XMS REPORT ---
Author Author [facility] Medic al StaffYUDITH Organization [facility] Address [address] [place], [place] [address] Phone [phone] Summary purpose TRANSITION OF CARE AUTO GENERATION [...] diagnostic tests and/or laboratory data RESULTS Chemistry 28-16-089333:15:00 Result Normal Range Units Sodium 143 134-145 [...] >= 60 mL/min /1.7 History of procedures Procedure Code Code Type Description Date Performed Performing Physician 61722 CPT-4 RENAL FUNCTION PANEL 12-09-2014 MADDY PUENTES 17836 CPT-4 ASSAY OF MAGNESIUM 12-09-2014 LEO PUENTES 66582 CPT-4 ROUTINE VENIPUNCTURE 12-09-2014 MADDY PUENTES Functional status No functional or cognitive status [...]
--- OUTSIDE RECORDS SUMMARY | 2019-02-09 11:33 | XMS REPORT ---
Author Author [facility] Medic al StaffYUDITH Organization [facility] Address [address] [id number] Phone [phone] Care Team Providers Care Farm Management Agent Name Role Phone OSITO BENAVIDEZ MD PP [phone] Summary purpose TRANSITION OF CARE AUTO GENERATION Chief Complaint and Reason for Visit Admit Diagnosis 1 MALIGNANT FILIBERTO COLON NOS Problem list No authorized problems tracked for [...] tests and/or laboratory data RESULTS Radiology Results [id number] CT ABD/PELV WO CON PACs Image DATE OF EXAM: Jun 04 2014 [id number] ABD/PELV WO CO NTRAST : RADIOLOGY REPORT DATE OF SERVICE: 06/04/14 HISTORY: Patient is followup colon cancer. CT ABDOMEN AND PELVIS WITHOUT CONTRAST 0 830 HOURS Images were obtained from diaphragms to symphysis pubis. No intravenous contrast was utilized due to decreased r enal function. Dilute oral barium was given to opacify bowel. Liver shows several benign cysts which are a chronic finding. The gallbla dder has been removed. There is no biliary ductal dilatation. The spleen is normal. The stomach, pancreas, and adrenal glands appear norm al. No aneurysm of aorta is seen. There are benign renal cysts. No c alculi are seen in the kidneys and there is no hydronephrosis. No adeno bebeto is seen in the abdomen or pelvis. Bowel appears normal. There has been removal of the cecum and portion of ascending colon. No mesenteri c mass or ascites are seen. The urinary bladder contains very little uri ne. There is questionable mild thickening of the anterior superior aspe ct of the bladder unchanged from previous studies. IMPRESSION: No evidence of metastatic di sease. No change from 12/17/2013. Michael Causey DO /va 06/04/2014 09:38: / 05/09 09:47:47 cc:Dr. Shandra Benavidez This document has been electronically Signed by: On: DATE OF EXAM: Jun 04 2014 [id number] ABD/PELV WO CO NTRAST : RADIOLOGY REPORT DATE OF SERVICE: 06/04/14 HISTORY: Patient is followup colon cancer. CT ABDOMEN AND PELVIS WITHOUT CONTRAST 0 830 HOURS Images were obtained from diaphragms to symphysis pubis. No intravenous contrast was utilized due to decreased r enal function. Dilute oral barium was given to opacify bowel. Liver shows several benign cysts which are a chronic finding. The gallbla dder has been removed. There is no biliary ductal dilatation. The spleen is normal. The stomach, pancreas, and adrenal glands appear norm al. No aneurysm of aorta is seen. There are benign renal cysts. No c alculi are seen in the kidneys and there is no hydronephrosis. No adeno bebeto is seen in the abdomen or pelvis. Bowel appears normal. There has been removal of the cecum and portion of ascending colon. No mesenteri c mass or ascites are seen. The urinary bladder contains very little uri ne. There is questionable mild thickening of the anterior superior aspe ct of the bladder unchanged from previous studies. IMPRESSION: No evidence of metastatic di sease. No change from 12/17/2013. Michael Causey DO /va 06/04/2014 09:38:05/09 09:47:47 cc:Dr. Shandra Benavidez This document has been electronically Signed by: MICHAEL CAUSEY DO On: Jun 05 2014 11:50A Result Amended on 2014-06-05 at 11:50:14 . Previous status was ME. CT CHEST W/O CONT PACs Image DATE OF EXAM: Jun 04 2014 [id number] CHEST WO CONTR AST : RADIOLOGY REPORT DATE OF SERVICE: 06/04/14 HISTORY: Patient is followup colon cancer. CT CHEST WITHOUT CONTRAST 0830 HOURS Images were obtained from lung apices to diaphragms. No intravenous contrast was utilized due to decreased r enal function. There is enlargement of the left lobe of the thyroid gland which is unchanged from study 12/17/2013. This de viates the trachea slightly to the right. This is identical to 12/18/19 14 exam. No mediastinal, hilar or axillary adenopathy are seen. There i s no aneurysm of aorta. A few calcified granulomas are seen in the anirudh gs. No noncalcified nodules are present in the lungs. There is no pleura l fluid. IMPRESSION: Thyroid goiter in the left l obe chronically seen. A few calcified granulomas. No evidence of met astatic disease. DO SAILAJA Ponce/va 06/04/2014 09:38:05/09 09:45:43 cc:Dr. Shandra Benavidez This document has been electronically Signed by: On: DATE OF EXAM: Jun 04 2014 [id number] CHEST WO CONTR AST : RADIOLOGY REPORT DATE OF SERVICE: 06/04/14 HISTORY: Patient is followup colon cancer. CT CHEST WITHOUT CONTRAST 0830 HOURS Images were obtained from lung apices to diaphragms. No intravenous contrast was utilized due to decreased r enal function. There is enlargement of the left lobe of the thyroid gland which is unchanged from study 12/17/2013. This de viates the trachea slightly to the right. This is identical to 12/18/19 14 exam. No mediastinal, hilar or axillary adenopathy are seen. There i s no aneurysm of aorta. A few calcified granulomas are seen in the anirudh gs. No noncalcified nodules are present in the lungs. There is no pleura l fluid. IMPRESSION: Thyroid goiter in the left l obe chronically seen. A few calcified granulomas. No evidence of met astatic disease. DO SAILAJA Ponce/dwight 06/04/2014 09:38:05/09 09:45:43 cc:Dr. Shandra Benavidez This document has been electronically Signed by: MICHAEL CAUSEY DO On: Jun 05 2014 11:50A Result Amended on 2014-06-05 at 11:50:13 . Previous status was [place]. History of procedures Procedure Code Code Type Description Date Performed Performing Physician 87876 CPT-4 CT THORAX W/O DYE 06-04-2014 SHANDRA WALSH [id number] CPT-4 CT ABD & PELVIS W/O CONTRAST 06-04-2014 SHANDRA BENJAMÍN Functional status No functional or cognitive status [...]
--- OUTSIDE RECORDS SUMMARY | 2019-02-09 11:33 | XMS REPORT ---
Author Author [facility] Medic al YUDITH Rivera Organization [facility] Address [address] [id number] Phone [phone] Care Team Providers Care Unit Leader Name Role Phone OSITO BENAVIDEZ MD PP [phone] Summary purpose TRANSITION OF CARE AUTO GENERATION [...] tests and/or laboratory data RESULTS Radiology Results [id number] CT ABD/PELV WO CON PACs Image DATE OF EXAM: Jun 04 2014 [id number] ABD/PELV WO CO NTRAST : RADIOLOGY REPORT [...] metastatic di sease. No change from 12/17/2013. Sanya Sutton DO /vt 06/04/2014 09:38:05/09 09:47:47 cc:Dr. Tenzin Benavidez This document has been electronically Signed by: On: 20-91-240514:18:00 CT CHEST W/O CONT PACs Image DATE OF EXAM: Jun 04 2014 [id number] CHEST WO CONTR AST : RADIOLOGY REPORT [...] evidence of met astatic disease. DO SAILAJA Ponce/vt 06/04/2014 09:38:05/09 09:45:43 cc:Dr. Tenzin Benavidez This document has been electronically Signed by: On: History of procedures No procedures recorded for [...]
--- OUTSIDE RECORDS SUMMARY | 2019-02-09 11:33 | XMS REPORT ---
Author Author [facility] Medic al StaffUYDITH Organization [facility] Address [address] [place], [place] [id number] Phone [phone] Summary purpose TRANSITION OF CARE AUTO GENERATION [...] tests and/or laboratory data RESULTS Radiology Results [id number] Thyroid Sono PACs Image DATE OF EXAM: 2015 [id number] SONO : RADIOLOGY REPORT DATE OF SERVICE: 07/09/15 HISTORY: Thyroid mass noted on prior CT study. THYROID ULTRASOUND 0940 HOURS The right lobe of the thyroid is small a nd homogenous. The left lobe is enlarged and contains a predominantly so lid mass enlargement. Overall, the left lobe measures 5.7 x 5.2 x 4.7 c m. There is predominantly isoechoic enlargement of the left lobe h owever a heterogeneous mixed cystic and solid nodule is also present laterally. The smaller lateral nodule measures 3.9 x 2.0 x 2.8 cm. IMPRESSION: Enlargement of the left thyr oid lobe. It is uncertain if the entire left lobe is abnormal tissue or e nlarged normal tissue and there is an additional heterogeneous ovoid nod ule in its most anterior and lateral aspect. Radionuclide thyroid sca n is recommended to determine if there is functional tissue present. Taj Pires MD MWD/nh07/09/2015 10:09:00 / 0 02/2015 10:25:38 cc:Dr. Tenzin Coffman This document has been electronically Signed by: On: DATE OF EXAM: 2015 [id number] SONO : RADIOLOGY REPORT DATE OF SERVICE: 07/09/15 HISTORY: Thyroid mass noted on prior CT study. THYROID ULTRASOUND 0940 HOURS The right lobe of the thyroid is small a nd homogenous. The left lobe is enlarged and contains a predominantly so lid mass enlargement. Overall, the left lobe measures 5.7 x 5.2 x 4.7 c m. There is predominantly isoechoic enlargement of the left lobe h owever a heterogeneous mixed cystic and solid nodule is also present laterally. The smaller lateral nodule measures 3.9 x 2.0 x 2.8 cm. IMPRESSION: Enlargement of the left thyr oid lobe. It is uncertain if the entire left lobe is abnormal tissue or e nlarged normal tissue and there is an additional heterogeneous ovoid nod ule in its most anterior and lateral aspect. Radionuclide thyroid sca n is recommended to determine if there is functional tissue present. Taj Pires MD MWD/nh07/09/2015 10:09:00 / 02/2015 10:25:38 cc:Dr. Tenzin Coffman This document has been electronically Signed by: TAJ PIRES MD On: Jul 09 20152:19P Result Amended on 2015-07-09 at 14:19:34 . Previous status was [place]. History of procedures No procedures recorded for [...]
--- OUTSIDE RECORDS SUMMARY | 2019-02-09 11:33 | XMS REPORT | Referral Summary ---
Author Author [facility] Organization [facility] Address Unknown Phone Unavailable Care Team Providers Care Insulating Machine Operator Name Role Phone Kylie Holt PCP Encounter [facility] [id number] Date(s): 08/30/18 - 08/30/18 [facility] [address] [place] [address] [phone] Discharge Disposition: 01-Home or Self Care Attending Physician: Arsenio Lew MD Admitting Physician: Arsenio Lew MD Vital Signs No data available for this section Problem List No data available for this section Allergies, Adverse Reactions, Alerts No data available for this section Medications No data available for this section Results No data available for this section Immunizations No data available for this section Procedures Procedure Date Related Diagnosis Body Site Status Collection of venous blood by venipuncture 08/30/18 Completed Social History Social History Type Response Assessment and Plan No data available for this section
--- OUTSIDE RECORDS SUMMARY | 2019-02-09 11:33 | XMS REPORT | Referral Summary ---
Author Author [facility] Organization [facility] Address Unknown Phone Unavailable Care Team Providers Care Sprinkling System Irrigator Name Role Phone Kylie Holt PCP Encounter Date(s): 07/28/18 - 09/30/18 [facility] [address] [place] [address] Encounter Diagnosis Malignant neoplasm of thyroid gland (Final) - Personal history of malignant neoplasm of breast (Final) - Acquired absence of both cervix and uterus (Final) - Acquired absence of other specified parts of digestive tract (Final) - Family history of malignant neoplasm of digestive organs (Final) - custodial (current) use of aspirin (Final) - Other terminal press operator (current) drug therapy (Final) - Discharge Disposition: -Home or Self Care Attending Physician: Arsenio Lew [...]
--- OUTSIDE RECORDS SUMMARY | 2019-02-09 11:33 | XMS REPORT | Referral Summary ---
Author Author [facility] Organization [facility] Address Unknown Phone Unavailable Care Team Providers Care Button Station Worker Name Role Phone No PCP, Pt States PCP Encounter [facility] Date(s): 07/28/18 - 08/27/18 [facility] [address] [place] [address] Encounter Diagnosis Malignant neoplasm of thyroid gland (Final) - Personal history of malignant neoplasm of breast (Final) - Acquired absence of both cervix and uterus (Final) - Acquired absence of other specified parts of digestive tract (Final) - Family history of malignant neoplasm of digestive organs (Final) - nursing home (current) use of aspirin (Final) - Other commodities clerk (current) drug therapy (Final) - Discharge Disposition: [...]
--- OUTSIDE RECORDS SUMMARY | 2019-02-09 11:33 | XMS REPORT ---
Author Author [facility] Medic al StaffYUDITH Organization [facility] Address [address] [place], [place] [address] Phone [phone] Summary purpose TRANSITION OF CARE AUTO GENERATION [...] tests and/or laboratory data RESULTS Radiology Results [id number]:00 Thyroid Sono PACs Image DATE OF EXAM: 2015 [id number] SONO : RADIOLOGY REPORT DATE OF SERVICE: [...] 10:09:00 / 0 02/2015 10:25:38 cc:Dr. Tenzin Butts This document has been electronically Signed by: On: DATE OF EXAM: 2015 [id number] SONO : RADIOLOGY REPORT DATE OF SERVICE: [...] MWD/nh07/09/2015 10:09:00 / 02/2015 10:25:38 cc:Dr. Tenzin Butts This document has been electronically Signed by: TAJ PIRES MD On: Jul 09 20152:19P Result Amended on 2015-07-09 at 14:19:34 . Previous status was [place]. History of procedures Procedure Code Code Type Description Date Performed Performing Physician [id number] CPT-4 US EXAM OF HEAD AND NECK 07-09-2015 Chery BUTTS Functional status No functional or cognitive [...]
--- OUTSIDE RECORDS SUMMARY | 2019-02-09 11:33 | XMS REPORT | Referral Summary ---
Author Author [facility] Organization [facility] Address Unknown Phone Unavailable Care Team Providers Care Pharmacist Name Role Phone No PCP, Pt States PCP Encounter [facility] Date(s): 07/28/18 - 07/28/18 [facility] [address] [place] [address] Discharge Disposition: 01-Home or Self Care Attending Physician: Arsenio Lew MD Admitting Physician: Arsenio Lew MD Referring Physician: Arsenio Lew MD Vital Signs No data available for this section Problem List No data available for this section Allergies, Adverse Reactions, Alerts No data available for this section Medications No data available for this section Results Most recent to 1 oldest [Reference Range]: TSH [0.35-5.50 21.63 mcIU/mL mcIU/mL] *HI* (07/28/18 4:22 PM) Immunizations No data available for this section Procedures No data available for this section Social History Social History Type Response Assessment and Plan No data available for this section
--- OUTSIDE RECORDS SUMMARY | 2019-02-09 11:33 | XMS REPORT ---
Author Author [facility] Medic al Staff, YUDITH Munoz Organization [facility] Address [address] [place] [id number] Phone [phone] Summary purpose TRANSITION OF CARE AUTO GENERATION [...]
--- OUTSIDE RECORDS SUMMARY | 2019-02-09 11:34 | XMS REPORT | Clinical Summary ---
Author Author Admin, Florecita Munoz Organization [facility] Address Unknown Phone Unavailable Allergies, Adverse Reactions, Alerts Allergy Name Reaction Description Start Date Severity Status Pr ovider NKDA Critical Active Kylie MEEK RN Conditions or Problems Problem Name Problem Code Onset Date Status Entry Date Provider Comment Standard Description Annotate HYPERLIPIDEMIA 272.4 Active Kina Joshua APRN Other and unspecified hyperlipidemia HYPERTENSION 401.9 Active Kina Joshua APRN Unspecified essential hypertension ABDOMINAL PAIN, RIGHT LOWER QUADRANT 789.03 Resolved Kina Joshua APRN Abdominal pain, right lower quadrant ADENOCARCINOMA, COLON, CECUM 153.4 Resolved Adam Yates MD Malignant neoplasm of cecum ABDOMINAL PAIN, GENERALIZED 789.07 Resolved Hope Benavidez MD PhD Abdominal pain, generalized FEVER UNSPECIFIED 780.60 Resolved Hope Benavidez MD PhD Fever, unspecified UNSPECIFIED VENOUS INSUFFICIENCY 459.81 Resolved 201 05/09/09 Adam Yates MD Venous (peripheral) insufficiency, unspe cified CARCINOMA IN SITU OF BREAST 233.0 Inactive Kelsy Mckeon RMA 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 Kylie Holt APRN Personal history of other specified dise ases ADENOCARCINOMA, ASCENDING COLON 153.6 Correction 2012 Hope Benavidez MD PhD Malignant neoplasm of ascending colon Hyperkalemia 276.7 Resolved Hope Benavidez MD PhD Hyperpotassemia GERD 530.81 Resolved Kylie Holt APRN Esophageal reflux Health maintenance exam V70.0 Resolved Adolfo Yates MD Routine general medical examination at a health care facility Anemia 285.9 Resolved Kylie Holt APRN Anemia, unspecified Personal history of malignant neoplasm of large intestine V10.05 Active Adam Yates MD Personal history of malignant neoplasm of large intestine Hypomagnesemia 275.2 Resolved Kylie Holt APRN Disorders of magnesium metabolism Weakness 780.79 Resolved Hope Benavidez MD PhD Other malaise and fatigue Aftercare following surgery of the teeth,oral cavity a nd digestive system, NEC V58.75 Resolved Adam Yates MD Af tercare following surgery of the teeth,oral cavity and digestive system, NEC FH Stroke V17.1 Active Adam Yates MD Family history of stroke (cerebrovascular) Colon cancer 153.9 Resolved Adam Yates MD Malignant neoplasm of colon, unspecified FH Colon Cancer V16.0 Active Adam San Family history of malignant neoplasm of gastrointestinal tract Asymptomatic postmenopausal status (age-related) (natural) V49.8 1 Inactive Hope Benavidez MD PhD Asymptomatic postmenopausal status (age-related) (natural) Diarrhea 787.91 Inactive Hope Benavidez MD PhD Diarrhea Diarrhea, functional 564.5 Resolved Selena Yates MD Functional diarrhea Osteoporosis 733.00 Active Hope Benavidez MD PhD Osteoporosis, unspecified Dysuria 788.1 Resolved Hope Benavidez MD PhD Dysuria Vitamin D deficiency 268.9 Active Hope Benavidez MD PhD Unspecified vitamin D deficiency Peripheral neuropathy 356.9 Active Hope Benavidez MD PhD Unspecified hereditary and idiopathic peripheral neuropathy Vitamin B12 deficiency 266.2 Active Citlaly Meff ord RMA Other B-complex deficiencies Adenocarcinoma, ascending colon 153.6 Resolved 2015 Adam Yates MD Malignant neoplasm of ascending colon Sebaceous cyst, scalp 706.2 Resolved Kylie Yokum TRAFFIC SIGNAL TECHNICIAN Sebaceous cyst Cervical lymphadenopathy, anterior, left 785.6 Resolv ed Kylie Yokum TRAFFIC SIGNAL TECHNICIAN Enlargement of lymph nodes Need for prophylactic vaccination and inoculation against in fluenza V04.81 Resolved Adam Yates MD Need for prophylactic vaccination and inoculation against influenza Preventive health care V70.0 Resolved Kylie Lundu m TRAFFIC SIGNAL TECHNICIAN Routine general medical examination at a health care facility Thyroid nodule, left 241.0 Resolved Selena Yates MD Nontoxic uninodular goiter Screening mammogram V76.12 Resolved Kylie Yokum A PRN Other screening mammogram Mandy 706.2 Resolved Kylie Yokum TRAFFIC SIGNAL TECHNICIAN Sebaceous cyst Colon cancer, ascending 153.6 Resolved Kylie Yok um TRAFFIC SIGNAL TECHNICIAN Malignant neoplasm of ascending colon Foot pain, left 729.5 Resolved Kylie Yokum TRAFFIC SIGNAL TECHNICIAN Pain in limb Splinter 919.6 Resolved Kylie Yokum TRAFFIC SIGNAL TECHNICIAN Superficial foreign body (splinter) of other, multiple, and unspecified sites, without major open wound and without mention of infection Rash 782.1 Resolved Kylie Yokum TRAFFIC SIGNAL TECHNICIAN Rash and other nonspecific skin eruption Cyst 706.2 Resolved Kylie Yokum TRAFFIC SIGNAL TECHNICIAN Sebaceous cyst Body Mass Index 23.0-23.9 Adult Refinement 2017 Kylie Yokum TRAFFIC SIGNAL TECHNICIAN Body Mass Index between 19-24, adult BMI less than 20 Refinement Adam wiggins MD Body Mass Index between 19-24, adult BMI 24-24.9 Refinement Adam Yates MD Body Mass Index between 19-24, adult BMI 23-23.9 Active Adam Yates MD Body Mass Index between 19-24, adult Unspecified fall, initial encounter E888.9 Inactive Kylie Holt APRN Unspecified fall Eye pain, left 379.91 Inactive Kylie Holt APRN Pain in or around eye Pharyngitis, acute 074.0 Resolved Adam Yates MD Herpangina Chronic kidney disease stage 2 585.2 Refinement 12/09 Rosemarie Gresham RN Chronic kidney disease, Stage II (mild) Chronic kidney disease, stage 2 (Mild) 585.2 Active Kylie Holt APRN Chronic kidney disease, Stage II (mild) Hypomagnesemia 275.2 Resolved Adam marrero MD Disorders of magnesium metabolism Hypokalemia 276.8 Resolved Adam Delgado D Hypopotassemia Enlarged thyroid 240.9 Resolved Adam enamorado MD Goiter, unspecified Underweight Resolved Adam Yates MD Underweight Follicular adenoma, thyroid 226 Resolved Adam Yates MD Benign neoplasm of thyroid glands Carcinoma, thyroid gland, papillary, 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 Active Adam Yates MD Malignant neoplasm of thy roid gland Vocal cord dysfunction 478.5 Active Kylie Holt APRN Other diseases of vocal cords Preventive health care, adult V70.0 Inactive 08/08 Kylie Holt APRN Routine general medical examination at a health care facility Preoperative examination V72.84 Active Kylie Yok um TRAFFIC SIGNAL TECHNICIAN Preoperative examination, unspecified ABDOMINAL PAIN, RIGHT LOWER QUADRANT ICD-789.03 Inactive Kina Joshua TRAFFIC SIGNAL TECHNICIAN ADENOCARCINOMA, COLON, 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 Dick Yates MD ABDOMINAL PAIN, GENERALIZED ICD-789.07 Inactive Hope Benavidez MD PhD FEVER UNSPECIFIED ICD-780.60 Inactive Hope cohn MD PhD UNSPECIFIED VENOUS INSUFFICIENCY ICD-459.81 Elda ctive Adam Yates MD ADENOCARCINOMA, 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 Inac tive Hope Benavidez MD PhD Hyperkalemia ICD-276.7 Inactive Hope Benavidez MD PhD GERD ICD-530.81 Inactive Kylie Holt TRAFFIC SIGNAL TECHNICIAN 2015 Health maintenance exam ICD-V70.0 Bam Yates MD Anemia ICD-285.9 Inactive Kylie Holt TRAFFIC SIGNAL TECHNICIAN 07/24 Hypomagnesemia ICD-275.2 Inactive Kylie Holt TRAFFIC SIGNAL TECHNICIAN Weakness ICD-780.79 Inactive Hope Benavidez MD P hD Aftercare following surgery of the teeth,oral cavity a nd digestive system, NEC ICD-V58.75 Inactive Adam Yates MD Colon cancer ICD-153.9 Inactive Adam luna MD Asymptomatic postmenopausal status (age-related) (natural) I CD-V49.81 Inactive Hope Benavidez MD PhD Diarrhea, functional ICD-564.5 Inactive Selena Yates MD Dysuria ICD-788.1 Inactive Hope Benavidez MD PhD 201 05/19/01 Adenocarcinoma, ascending colon ICD-153.6 Inac tive Adam Yates MD Sebaceous cyst, scalp ICD-706.2 Inactive Tracy hi Yokum TRAFFIC SIGNAL TECHNICIAN Cervical lymphadenopathy, anterior, left ICD-785.6 Inactive Kylie Yokum TRAFFIC SIGNAL TECHNICIAN Need for prophylactic vaccination and inoculation against in fluenza ICD-V04.81 Inactive Adam Yates MD Preventive health care ICD-V70.0 Inactive Ka thi Yokum TRAFFIC SIGNAL TECHNICIAN Thyroid nodule, left ICD-241.0 Inactive Selena Yates MD Screening mammogram ICD-V76.12 Inactive Kylie Yokum TRAFFIC SIGNAL TECHNICIAN Mandy ICD-706.2 Inactive Kylie Yokum TRAFFIC SIGNAL TECHNICIAN 07/20 Colon cancer, ascending ICD-153.6 Inactive K athi Yokum TRAFFIC SIGNAL TECHNICIAN Foot pain, left ICD-729.5 Inactive Kylie Yokum TRAFFIC SIGNAL TECHNICIAN Splinter ICD-919.6 Inactive Kylie Yokum TRAFFIC SIGNAL TECHNICIAN 2017 Rash ICD-782.1 Inactive Kylie Yokum TRAFFIC SIGNAL TECHNICIAN 07/25 Cyst ICD-706.2 Inactive Kylie Yokum TRAFFIC SIGNAL TECHNICIAN 08/11 Unspecified fall, initial encounter ICD-E888.9 Inactive Kylie Holt AMY Eye pain, left ICD-379.91 Inactive Kylie Holt AMY Pharyngitis, acute ICD-074.0 Inactive Kavin Yates MD Hypomagnesemia ICD-275.2 Inactive Adam Franklin MD Hypokalemia ICD-276.8 Inactive Adam enamorado MD Enlarged thyroid ICD-240.9 Inactive Adam Yates MD Underweight Inactive LETY Nation 05/17 Follicular adenoma, thyroid ICD-226 Inactive Adam Yates MD Preventive health care, adult ICD-V70.0 Inacti ve Kylie Holt AMY Medication List Medication Instructions Start Date Stop Date Generic Name NDC Status Provider Patient Instruction ASPIR-LOW 81 MG ORAL TABLET DELAYED RELEASE 1 daily ASPIRIN 10518783332 Active Kylie Holt AMY Active SYNTHROID 100 MCG ORAL TABLET Take one tablet 30 minut es before breakfast or other medications for hypothyroidism. LEVOTHYROX INE SODIUM 23150220845 Active Kylie Holt AMY Active VOLTAREN 1 % TRANSDERMAL GEL apply 2 grams q 6-8 hour to left arm as needed for pain DICLOFENAC SODIUM 35162822580 Active Kylie Holt HEATHER N Active IMODIUM A-D 2 MG ORAL TABLET 1 tablet twice a day LOPERAMIDE HCL 96665129921 Active Kylie Holt AMY Active COQ10 100 MG ORAL CAPSULE 1 daily COENZYME Q10 052294 76110 Active Fay Alberts [facility] Active VITAMIN D3 2000 UNIT ORAL CAPSULE Melaleuca-One daily CHOLECALCIFEROL 35554439460 Active Kylie Escalonakum TRAFFIC SIGNAL TECHNICIAN Active PROBIOTIC DAILY ORAL CAPSULE Take one daily PROBIO TIC PRODUCT 50145812026 Active Kylie Lundum TRAFFIC SIGNAL TECHNICIAN Active IRON 325 (65 Fe) MG ORAL TABLET 1 every other day FERROUS SULFATE 84505379154 No Longer Active Kylie Lundum TRAFFIC SIGNAL TECHNICIAN Active FLORANEX ORAL PACKET 1 pack three times daily, for bowel health LACTOBACILLUS 62648201873 No Longer Active Kylie Ludnum TRAFFIC SIGNAL TECHNICIAN Active LOMOTIL 2.5-0.025 MG ORAL TABLET 1 tab by mouth prn 23/10/23 DIPHENOXYLATE-ATROPINE 14812108442 No Longer Active Kylie Lundum TRAFFIC SIGNAL TECHNICIAN Active MAGNESIUM GLUCONATE 250 MG ORAL TABLET 1 tab tid 23/10/23 MAGNESIUM GLUCONATE 90843644799 No Longer Active Kylie Lundum TRAFFIC SIGNAL TECHNICIAN Active CYANOCOBALAMIN 1000 MCG/ML INJECTION SOLUTION 1 injection ev ruben 2 weeks CYANOCOBALAMIN 49341764267 No Longer Active Kylie Lund um TRAFFIC SIGNAL TECHNICIAN Active ATENOLOL 25 MG ORAL TABLET 1/2 pill by mouth daily, fo r headaches, blood pressure ATENOLOL 60558042348 Active Kylie Lundum TRAFFIC SIGNAL TECHNICIAN Active PROPRANOLOL HCL 80 MG ORAL TABLET 1 tab tue. and thur. PROPRANOLOL HCL 53850163213 No Longer Active Hope Benavidez MD PhD A ctive VITAMIN D3 4000 IU 1 tab 3 times daily VITAMIN D3 4000 IU No Longer Active Hope Benavidez MD PhD Active BACTRIM DS 800-160 MG ORAL TABLET 1 pill by mouth twice claudio y, for UTI SULFAMETHOXAZOLE-TRIMETHOPRIM 85363799611 No Longer Active Hope Benavidez MD PhD Active PROLIA 60 MG/ML SUBCUTANEOUS SOLUTION 1 shot every 6 months for osteoprosis DENOSUMAB 96380039464 Active Hope Benavidez MD PhD Active CALCIUM + D + K 750-500-40 MG-UNT-MCG ORAL TABLET 1 tab by m outh twice daily CALCIUM-VITAMIN D-VITAMIN K 58874716189 Active Hope valdez MD PhD Active DAILY VALUE MULTIVITAMIN ORAL TABLET 1 tab by mouth twice daily 201 05/16/14 MULTIPLE VITAMIN 00841772045 Active Hope Benavidez MD PhD Acti ve FISH OIL 306 MG CAPS 1 tab by mouth three times daily OMEGA-3 FATTY ACIDS 23161448083 Active Hope Benavidez MD PhD Active LUTEIN 10 MG ORAL TABLET 1 tab daily LUTEIN 46460143 408 Active Hope Benavidez MD PhD Active TRIAMTERENE-HCTZ 37.5-25 MG ORAL TABLET 1 tab by mouth daily 10/22 TRIAMTERENE-HCTZ 18071982556 Active Kylie Holt TRAFFIC SIGNAL TECHNICIAN Active CYCLOBENZAPRINE HCL 10 MG ORAL TABLET 1 tablet by mout h three times daily as needed for headaches CYCLOBENZAPRINE HCL 72373039375 No Longer Active Adam Yates MD Active OMEPRAZOLE 20 MG ORAL CAPSULE DELAYED RELEASE 1 tablet by mo [facility] daily for GERD OMEPRAZOLE 80246864115 No Longer Active Adam Yates MD Active ZOFRAN 8 MG ORAL TABLET 1 tab by mouth every 12 hours prn 4 ONDANSETRON HCL 85905356154 No Longer Active Adam Yates MD Active PHENADOZ 25 MG RECTAL SUPPOSITORY 1 every 4 hrs. PRN 2 PROMETHAZINE HCL 43881740026 No Longer Active Adam Yates MD A ctive POTASSIUM CHLORIDE 20 MEQ ORAL PACKET by mouth twice a day prn 2 POTASSIUM CHLORIDE 95058534349 No Longer Active Adam Carpenter MD Active PROMETHAZINE HCL 25 MG ORAL TABLET 1 Q. 4 hr. PRN PROMETHAZINE HCL 02065609395 No Longer Active Adam Yates MD Active INNOPRAN XL 120 MG ORAL CAPSULE EXTENDED RELEASE 24 HO UR Take one by mouth daily PROPRANOLOL HCL SR BEADS 97880721403 No Longer Active Adam Yates MD Active FLAGYL 500 MG ORAL TABLET 1 pill by mouth three times daily, for diarrhea METRONIDAZOLE 21905040009 No Longer Active Hope landers MD PhD Active DYAZIDE 37.5-25 MG ORAL CAPSULE 1 qd TRIA MTERENE-HCTZ 98610377347 No Longer Active Hope Benavidez MD PhD Active PROZAC 20 MG ORAL CAPSULE 1 q d FLUOXETINE HCL 85039818479 No Longer Active Hope Benavidez MD PhD Active SIMVASTATIN 40 MG ORAL TABLET 1 qd SIMVAS TATIN 30979849695 No Longer Active Adam Yates MD Active MELOXICAM 15 MG ORAL TABLET 1 qd MELOXICAM 90941130366 No Longer Active Adam Yates MD Active EXCEDRIN EXTRA STRENGTH 250-250-65 MG ORAL TABLET 1-2 q6h TX N headache [id number] 42528903103 Active Hope Benavidez MD PhD Active FLAGYL 500 MG ORAL TABLET 1 qid METRONIDAZOL E 71953869418 No Longer Active Adam Yates MD Active LEVAQUIN 750 MG ORAL TABLET 1 qd LEVOFLOXAC IN 73150592401 No Longer Active Adam Yates MD Active ADULT ASPIRIN LOW STRENGTH 81 MG ORAL TABLET DISINTEGRATING 1 qd ASPIRIN 19987491382 Active Hope Benavidez MD PhD Active LEVAQUIN 750 MG ORAL TABLET 1 qd LEVAQUIN 750 MG ORAL TABLET 088051 LEVOFLOXACIN Inactive FLAGYL 500 MG ORAL TABLET 1 qid FLAGYL 500 MG ORAL TABLET 548432 METRONIDAZOLE Inactive MELOXICAM 15 MG ORAL TABLET 1 qd MELOXICAM 15 MG ORAL TABLET 937783 MELOXICAM Inactive SIMVASTATIN 40 MG ORAL TABLET 1 qd SIMVASTATIN 40 MG ORAL TABLET 109459 SIMVASTATIN Inactive PROZAC 20 MG ORAL CAPSULE 1 q d PROZAC 20 MG ORAL CAPSULE 807149 FLUOXETINE HCL Inactive DYAZIDE 37.5-25 MG ORAL CAPSULE 1 qd 5 DYAZIDE 37.5-25 MG ORAL CAPSULE 121284 TRIAMTERENE-HCTZ Inactive INNOPRAN XL 120 MG ORAL CAPSULE EXTENDED RELEASE 24 HO UR Take one by mouth daily INNOPRAN XL 120 MG ORAL CAPSULE EXTENDED RELEASE 24 HOUR PROPRANOLOL HCL SR BEADS Inactive PROMETHAZINE HCL 25 MG ORAL TABLET 1 Q. 4 hr. PRN 2013 PROMETHAZINE HCL 25 MG ORAL TABLET 035179 PROMETHAZINE HCL Inactive POTASSIUM CHLORIDE 20 MEQ ORAL PACKET by mouth twice a day prn POTASSIUM CHLORIDE 20 MEQ ORAL PACKET 9793514 POTASSIUM CHLORIDE Inactive PHENADOZ 25 MG RECTAL SUPPOSITORY 1 every 4 hrs. PRN PHENADOZ 25 MG RECTAL SUPPOSITORY 346685 PROMETHAZINE HCL Inactive ZOFRAN 8 MG ORAL TABLET 1 tab by mouth every 12 hours prn 4 ZOFRAN 8 MG ORAL TABLET 080975 ONDANSETRON HCL Inactive OMEPRAZOLE 20 MG ORAL CAPSULE DELAYED RELEASE 1 tablet by mo uth daily for GERD OMEPRAZOLE 20 MG ORAL CAPSULE DELAYED RELEASE 19 8051 OMEPRAZOLE Inactive CYCLOBENZAPRINE HCL 10 MG ORAL TABLET 1 tablet by mout h three times daily as needed for headaches CYCLOBENZAPRINE HCL 10 MG ORAL TABLET 402851 CYCLOBENZAPRINE HCL Inactive VITAMIN D3 4000 IU 1 tab 3 times daily VITAMIN D3 4000 IU Inactive PROPRANOLOL HCL 80 MG ORAL TABLET 1 tab tue. and thur. PROPRANOLOL HCL 80 MG ORAL TABLET 852409 PROPRANOLOL HCL Inacti ve CYANOCOBALAMIN 1000 MCG/ML INJECTION SOLUTION 1 injection ev ruben 2 weeks CYANOCOBALAMIN 1000 MCG/ML INJECTION SOLUTION 30 9594 CYANOCOBALAMIN Inactive MAGNESIUM GLUCONATE 250 MG ORAL TABLET 1 tab tid 23/10/23 MAGNESIUM GLUCONATE 250 MG ORAL TABLET 370166 MAGNESIUM GLUCONATE Inactive LOMOTIL 2.5-0.025 MG ORAL TABLET 1 tab by mouth prn 20 23/10/23 LOMOTIL 2.5-0.025 MG ORAL TABLET 7872118 DIPHENOXYLATE-ATROPINE Inac tive FLORANEX ORAL PACKET 1 pack three times daily, for bowel health FLORANEX ORAL PACKET 19634574170 LACTOBACILLUS Inactive IRON 325 (65 Fe) MG ORAL TABLET 1 every other day 2015 IRON 325 (65 Fe) MG ORAL TABLET 699890 FERROUS SULFATE Inactive FLAGYL 500 MG ORAL TABLET 1 pill by mouth three times daily, for diarrhea FLAGYL 500 MG ORAL TABLET 751100 METRONIDAZOLE I nactive BACTRIM DS 800-160 MG ORAL TABLET 1 pill by mouth twice claudio y, for UTI BACTRIM DS 800-160 MG ORAL TABLET 179905 SULFAMETHOXAZOLE-TRIMETHOPRIM Inactive Advance Directives Directive Description Start Date PERMISSION TO SHARE LIVING WILL DO NOT RESUSCITATE/COMFORT MEASURES ONLY Immunizations Vaccine Administration Date Value Standard Stevan cription influenza immunization (Flu Vax) has been administered 11/16 Flublok Quadrivalent (Flu) Syringe IM(Medicare) influenza virus vaccine, unspecified formulation influenza immunization (Flu Vax) has been administered 02/23 Done according to patient influenza virus vaccine, unspecified for mulation influenza immunization (Flu Vax) has been administered 4 given influenza virus vaccine, unspecified formulation TB-PPD (tuberculin purified protein derivative), intra dermal administration Tubersol pneumococcal immunization administered given pneumococcal polysaccharide vaccine, 23 valent dT (Diphtheria and Tetanus) booster given given Td(adult) unspecified formulation Vital Signs Date Name Value Unit Range Description blood pressure, diastolic, repeated by physician 78 BP dobson blood pressure, diastolic 78 mm[Hg] BP dobson blood pressure, systolic, repeated by physician 118 BP sys blood pressure, systolic 118 mm[Hg] BP sys height E&M 63 [in_us] Bdy height pulse rate E&M 66 /min Heart rate temperature E&M 97.6 [degF] Body temp erature weight E&M 133 [lb_av] Weight Measure d blood pressure, diastolic, repeated by physician 82 BP dobson blood pressure, diastolic 82 mm[Hg] BP dobson blood pressure, systolic, repeated by physician 124 BP sys blood pressure, systolic 124 mm[Hg] BP sys height E&M 63 [in_us] Bdy height pulse rate E&M 64 /min Heart rate temperature E&M 98.4 [degF] Body temp erature weight E&M 133 [lb_av] Weight Measure d blood pressure, diastolic, repeated by physician 71 BP dobson blood pressure, diastolic 71 mm[Hg] BP dobson blood pressure, systolic, repeated by physician 131 BP sys blood pressure, systolic 131 mm[Hg] BP sys height E&M 63 [in_us] Bdy height pulse rate E&M 59 /min Heart rate temperature E&M 98.0 [degF] Body temp erature weight E&M 130 [lb_av] Weight Measure d blood pressure, diastolic, repeated by physician 62 BP dobson blood pressure, diastolic 62 mm[Hg] BP dobson blood pressure, systolic, repeated by physician 141 BP sys blood pressure, systolic 141 mm[Hg] BP sys height E&M 63 [in_us] Bdy height pulse rate E&M 61 /min Heart rate temperature E&M 97.4 [degF] Body temp erature weight E&M 133 [lb_av] Weight Measure d blood pressure, diastolic, repeated by physician 75 BP dobson blood pressure, diastolic 75 mm[Hg] BP dobson blood pressure, systolic, repeated by physician 129 BP sys blood pressure, systolic 129 mm[Hg] BP sys height E&M 63 [in_us] Bdy height pulse rate E&M 68 /min Heart rate temperature E&M 97.7 [degF] Body temp erature weight E&M 133 [lb_av] Weight Measure d blood pressure, diastolic, repeated by physician 70 BP dobson blood pressure, diastolic 70 mm[Hg] BP dobson blood pressure, systolic, repeated by physician 139 BP sys blood pressure, systolic 139 mm[Hg] BP sys height E&M 63 [in_us] Bdy height pulse rate E&M 65 /min Heart rate temperature E&M 96.5 [degF] Body temp erature weight E&M 136.50 [lb_av] Weight Measure d blood pressure, diastolic, repeated by physician 71 BP dobson blood pressure, diastolic 71 mm[Hg] BP dobson blood pressure, systolic, repeated by physician 144 BP sys blood pressure, systolic 144 mm[Hg] BP sys height E&M 134.5 [in_us] Bdy height pulse rate E&M 62 /min Heart rate temperature E&M 97.5 [degF] Body temp erature weight E&M 144 [lb_av] Weight Measure d blood pressure, diastolic, repeated by physician 78 BP dobson blood pressure, diastolic 78 mm[Hg] BP dobson blood pressure, systolic, repeated by physician 118 BP sys blood pressure, systolic 118 mm[Hg] BP sys height E&M 63 [in_us] Bdy height pulse rate E&M 78 /min Heart rate temperature E&M 98.5 [degF] Body temp erature weight E&M 133 [lb_av] Weight Measure d Diagnostic Results Date Name Value Unit Range Description Lab Report: Calcium - Chemistry calcium, serum 8.5 mg/dL 8.5-10.1 Lab Report: CBC W/DIFF - Hematology leukocyte count, blood 5.6 10^3/MM^3 10*3/mm3 4.6-10.2 neutrophils as percent of blood leukocytes 57.4 % 42.2-75.2 monocytes as percent of blood leukocytes 6.1 % 1.7-9.3 lymphocytes as percent of blood leukocytes 30.8 % 20.5-51.1 erythrocyte (RBC) count 4.54 10^6/MM^3 10*6/mm3 3.80-5.8 0 hemoglobin, blood 13.7 g/dL 12.0-16.0 hematocrit, blood 42.0 % 37.0-47.0 mean corpuscular volume, RBC 92 fL 80-97 mean corpuscular hemoglobin, RBC 30.2 pg 27. 0-31.2 mean corpuscular hemoglobin concentration, RBC 32.7 G/DL % 31.8-35.4 red blood cell distribution width 11.5 % 11 .6-14.8 platelet count 181 10^3/MM^3 10*3/mm3 142-424 Lab Report: CBC W/DIFF, Thyroid Stimulat ing Hormone (L) - Chemistry TSH 15.54 m[iU]/mL 0.36-3.74 Lab Report: CBC W/DIFF, Thyroid Stimulat ing Hormone (L) - Hematology leukocyte count, blood 5.6 10^3/MM^3 10*3/mm3 4.6-10.2 neutrophils as percent of blood leukocytes 72.0 % 42.2-75.2 monocytes as percent of blood leukocytes 4.8 % 1.7-9.3 lymphocytes as percent of blood leukocytes 18.7 % 20.5-51.1 erythrocyte (RBC) count 4.79 10^6/MM^3 10*6/mm3 3.80-5.8 0 hemoglobin, blood 14.8 g/dL 12.0-16.0 hematocrit, blood 46.1 % 37.0-47.0 mean corpuscular volume, RBC 96 fL 80-97 mean corpuscular hemoglobin, RBC 30.8 pg 27. 0-31.2 mean corpuscular hemoglobin concentration, RBC 32.1 G/DL % 31.8-35.4 red blood cell distribution width 12.2 % 11 .6-14.8 platelet count 141 10^3/MM^3 10*3/mm3 142-424 Lab Report: CBC, Basic Metabolic Panel, MICROALB/CREAT W/RATIO, Lipid Pa ... - Chemistry cholesterol, serum 211 mg/dL 915-343 4715/01/10 triglyceride, serum, fasting 77 mg/dL 30-200 HDL cholesterol, serum 70 mg/dL 32-60 LDL cholesterol, serum 126 mg/dL 0-130 TSH 1.19 m[iU]/mL 0.36-3.74 sodium, serum 141 mmol/L 241-864 5729/01/10 potassium, serum 3.7 mmol/L 3.5-5.2 chloride, serum 101 mmol/L 98-107 carbon dioxide, venous blood 31.0 mmol/L 21.0-32 .0 blood glucose 96 mg/dL 65-95 calcium, serum 9.5 mg/dL 8.5-10.1 urea nitrogen, blood 21 mg/dL 7-18 creatinine, serum 1.40 mg/dL 0.60-1.30 Estimated Glomerular Filtration Rate (calc) 39 (?) mL/min/1.73m2 = OR > 60 mL/min Lab Report: CBC, Basic Metabolic Panel, MICROALB/CREAT W/RATIO, Lipid Pa ... - Hematology leukocyte count, blood 4.6 10^3/MM^3 10*3/mm3 4.6-10.2 erythrocyte (RBC) count 4.69 10^6/MM^3 10*6/mm3 3.80-5.8 0 hemoglobin, blood 14.1 g/dL 12.0-16.0 hematocrit, blood 43.1 % 37.0-47.0 mean corpuscular volume, RBC 92 fL 80-97 mean corpuscular hemoglobin, RBC 30.1 pg 27. 0-31.2 mean corpuscular hemoglobin concentration, RBC 32.7 G/DL % 31.8-35.4 red blood cell distribution width 11.4 % 11 .6-14.8 platelet count 189 10^3/MM^3 10*3/mm3 142-424 Lab Report: CBC, Basic Metabolic Panel, MICROALB/CREAT W/RATIO, Lipid Pa ... - Lab microalbumin, urine 30 mg/L 0-19 Lab Report: CBC, Basic Metabolic Panel, MICROALB/CREAT W/RATIO, Lipid Pa ... - Urinalysis microalbumin/total urine volume 30 - 300 mg/g Abnormal mg/g mg/L 0-29 Lab Report: Comp. Metabolic Panel, Thyro id Stimulating Hormone (L), Free ... - Chemistry sodium, serum 142 mmol/L 319-089 8470/04/16 carbon dioxide, venous blood 30.0 mmol/L 21.0-32 .0 potassium, serum 3.2 mmol/L 3.5-5.2 chloride, serum 101 mmol/L 98-107 blood glucose 77 mg/dL 65-95 urea nitrogen, blood 21 mg/dL 7-18 creatinine, serum 1.52 mg/dL 0.60-1.30 Estimated Glomerular Filtration Rate (calc) 36 (?) mL/min/1.73m2 = OR > 60 mL/min alanine aminotransferase (SGPT), serum 24 U/L 12-78 aspartate aminotransferase (SGOT), serum 21 U/L 15-37 calcium, serum 9.1 mg/dL 8.5-10.1 bilirubin, serum, total 0.60 mg/dL 0.00-1.00 TSH 1.76 m[iU]/mL 0.36-3.74 thyroxine, serum, free 0.82 ng/dL 0.59-1.17 Lab Report: Comp. Metabolic Panel, Thyro id Stimulating Hormone (L), Free ... - Lab Alkaline phosphatase 48 [id number] Lab Report: Free Thyroxine (L) - Glass Vial Filler ry thyroxine, serum, free 0.82 ng/dL 0.59-1.17 Lab Report: Thyroid Stimulating Hormone (L), Free Thyroxine (L) - Chemistry TSH 13.85 m[iU]/mL 0.36-3.74 thyroxine, serum, free 0.65 ng/dL 0.59-1.17 TSH 13.59 m[iU]/mL 0.36-3.74 thyroxine, serum, free 0.47 ng/dL 0.59-1.17 Encounters Code Encounter Date Provider Facility CPT-79634 [id number] Vst-Est Level III 12:20:52 [facility]MAKER [facility]1967 [id number] Vst-Est Level III 09:15:19 CDT Fiorella Holt [facility] [facility] [place] CPT-53463 Level 4 Est. Patient 15:35:24 DOUGHMAKER Adam Yates MD [facility] CPT-34017 Level 3 New Patient 12:08:54 DOUGHMAKER Adam Yates MD [facility] CPT-32443 [id number] Vst-Est Level IV 19:48:30 DOUGHMAKER Tracy Holt [facility] [place] CPT-41568 [id number] Vst-Est Level III 14:29:19 CDT [facility] [place] [place] CPT-66594 Level 2 Est. Patient 14:58:26 CDT [facility] Level 3 Est. Patient 08:15:24 DOUGHMAKER Kylie boyd [facility] [place] CPT-38257 Level 2 Est. Patient 14:27:16 DOUGHMAKER Kylie boyd [facility] [place] CPT-22823 Level 3 Est. Patient 17:54:48 CDT Kylie boyd [facility] [place] CPT-46480 Level 3 Est. Patient 16:26:30 CDT Kina blackmon [facility] CPT-74973 Level 3 New Patient 16:22:01 DOUGHMAKER Adam Yates MD [facility] CPT-22988 Level 4 Est. Patient 17:00:48 CDT Kylie Lund [facility] CPT-80542 Level 3 Est. Patient 13:15:54 CDT Kylie boyd [facility] CPT-27486 Level 3 Est. Patient 09:10:11 CDT Kylie Lund [facility] CPT-07302 Level 4 Est. Patient 12:08:30 DOUGHMAKER Hope cohn MD [facility] CPT-32472 Level 4 Est. Patient 19:08:42 DOUGHMAKER Hope cohn MD [facility] CPT-45171 Level 4 Est. Patient 20:04:51 CDT Hope cohn MD PhD [facility] CPT-97487 Level 3 New Patient 01:46:11 DOUGHMAKER Hope landers MD PhD [facility] Procedures Code Procedure Name Date Entry Date Standard Desc ription CPT-CM7684K (4274F) Influenza immunization administe red or previously received 12:20:52 DOUGHMAKER CPT-G0008 Administration of Influenza Virus Vaccine 15:08:32 CDT CPT-55609 Flublok Quadrivalent (Flu) Syringe IM(Ia dicare) 15:08:32 CDT CPT-39837 Venipuncture Draw Fee 10:06:15 CDT CPT-41965 Bone Density - XRAY USE ONLY 11:51:35 CDT 2 CPT-96324 Free T4 - LAB USE ONLY 11:44:37 CDT CPT-15006 TSH - LAB USE ONLY 11:44:37 CDT CPT-28863 Venipuncture Draw Fee 11:44:37 CDT CPT-J0897 Prolia 60 mg 10:36:55 CDT CPT-49070 Abx/Therapy Injection 10:36:55 CDT CPT-50879 Venipuncture Draw Fee 13:34:11 CDT CPT-G0439 Subsequent Annual Wellness Exam 09:15:19 CDT CPT-68334 Postop F/U Visit 15:45:41 CDT CPT-76977 Sono Soft Tissue Head and Neck - XRAY US E ONLY 11:56:06 DOUGHMAKER CPT-02908 Abx/Therapy Injection 09:40:08 DOUGHMAKER CPT-J0897 Prolia 60 mg 09:40:08 DOUGHMAKER CPT-13038 First Vx - Ix admin for Medicare patients 02/08 10:02:45 CDT CPT-80734 Fluzone Quadrivalent Intramuscular Suspe nsion 0.5 ML 10:02:45 CDT CPT-17212 Magnesium - LAB USE ONLY 09:41:00 CDT 12/09 CPT-75112 Renal Panel - LAB USE ONLY 09:41:00 CDT 201 09/17/01 CPT-05822 Venipuncture Draw Fee 09:41:00 CDT CPT-20694 Calcium - LAB USE ONLY 17:25:11 CDT CPT-J0897 Prolia 60 mg 15:10:59 CDT CPT-98571 Abx/Therapy Injection 15:10:59 CDT CPT-G0439 Subsequent Annual Wellness Exam 14:29:19 CDT CPT-94075 Venipuncture Draw Fee 10:59:04 CDT CPT-98781 CMP - LAB USE ONLY 10:59:04 CDT CPT-34465 CBC with Diff - LAB USE ONLY 10:59:03 CDT 2 CPT-J0897 Prolia 60 mg 15:46:54 DOUGHMAKER CPT-83353 Abx/Therapy Injection 15:46:54 DOUGHMAKER CPT-44363 Microalbumin - LAB USE ONLY 09:41:32 DOUGHMAKER 20 23/01/15 CPT-98216 Free T4 - LAB USE ONLY 09:41:32 DOUGHMAKER CPT-34562 TSH - LAB USE ONLY 09:41:32 DOUGHMAKER CPT-87899 BMP - LAB USE ONLY 09:41:32 DOUGHMAKER CPT-54055 Venipuncture Draw Fee 09:41:32 DOUGHMAKER CPT-99919 First Vx - Ix admin for Medicare patients 11:19:30 CDT CPT-78886 Fluzone High-Dose Intramuscular Suspension 12/07 11:19:30 CDT CPT-J0897 Prolia 60 mg 14:55:42 CDT CPT-12073 Abx/Therapy Injection 14:55:42 CDT CPT-46902 Bone Density - XRAY USE ONLY 10:27:12 CDT 2 CPT-G0439 Subsequent Annual Wellness Exam 17:54:53 CDT CPT-33737 Foot, left, comp min 3V - XRAY USE ONLY 12:22:49 CDT CPT-G0009 Administration of Pneumococcal Vaccine 3 12:18:00 CDT CPT-67466 Pneumovax 23 Injection Injectable 25 MCG /0.5ML 12:18:00 CDT CPT-J0897 Prolia 60 mg 14:14:16 DOUGHMAKER CPT-73460 Abx/Therapy Injection 14:14:15 DOUGHMAKER CPT-95541 Lipid - LAB USE ONLY 10:01:52 DOUGHMAKER 2 CPT-59033 Calcium - LAB USE ONLY 10:01:51 DOUGHMAKER CPT-17079 Venipuncture Draw Fee 10:01:51 DOUGHMAKER CPT-LR Lesion Removal 16:22:01 DOUGHMAKER CPT-34047 TSH - LAB USE ONLY 14:26:02 CDT CPT-65293 CMP - LAB USE ONLY 14:26:01 CDT CPT-10902 CBC with Diff - LAB USE ONLY 14:26:01 CDT 2 CPT-72236 Venipuncture Draw Fee 14:26:01 CDT CPT-67105 First Vx - Ix admin for Medicare patients 13:27:08 CDT CPT-01990 Fluzone High-Dose Intramuscular Suspension 11/26 13:27:08 CDT CPT-G0438 Initial Annual Wellness Exam 14:19:57 CD T CPT-G0009 Administration of Pneumococcal Vaccine 9 11:36:25 CDT CPT-32821 Prevnar 13 Intramuscular Suspension 1 1:36:25 CDT CPT-12366 Prevnar 13 Intramuscular Suspension 1 0:40:58 CDT CPT-J0897 Prolia 60 mg 10:37:16 CDT CPT-08885 Abx/Therapy Injection 10:37:16 CDT CPT-J0897 Prolia 60 mg 16:09:34 DOUGHMAKER CPT-J0897 Prolia 60 mg 11:10:35 DOUGHMAKER CPT-20680 Abx/Therapy Injection 11:10:35 DOUGHMAKER CPT-000 Give Appropriate Flu Vaccine 17:01:15 DOUGHMAKER 2 CPT-56349 Fluzone High Dose (65+) 15:03:08 DOUGHMAKER 02/15 CPT-97671 Immunization Single Admin 15:03:08 DOUGHMAKER 2014 CPT-OV Office Visit 15:58:06 CDT CPT-J0897 Prolia 60 mg 08:45:38 CDT CPT-96765 Abx/Therapy Injection 08:45:38 CDT CPT-J3420 Vitamin B12 1000mcg (Cyanocobalamin) 09:26:20 DOUGHMAKER CPT-18189 Abx/Therapy Injection 09:26:20 DOUGHMAKER CPT-J3420 Vitamin B12 1000mcg (Cyanocobalamin) 09:44:40 DOUGHMAKER CPT-13541 Abx/Therapy Injection 09:44:40 DOUGHMAKER CPT-J3420 Vitamin B12 1000mcg (Cyanocobalamin) 09:15:54 DOUGHMAKER CPT-84699 Abx/Therapy Injection 09:15:54 DOUGHMAKER CPT-J3420 Vitamin B12 1000mcg (Cyanocobalamin) 09:46:44 DOUGHMAKER CPT-46900 Abx/Therapy Injection 09:46:44 DOUGHMAKER CPT-J3420 Vitamin B12 1000mcg (Cyanocobalamin) 09:47:34 DOUGHMAKER CPT-44732 Abx/Therapy Injection 09:47:34 DOUGHMAKER CPT-J3420 Vitamin B12 1000mcg (Cyanocobalamin) 14:35:50 DOUGHMAKER CPT-J3420 Vitamin B12 1000mcg (Cyanocobalamin) 09:25:05 DOUGHMAKER CPT-89995 Abx/Therapy Injection 09:25:05 DOUGHMAKER CPT-G0008 Administration of Influenza Virus Vaccine 13:36:47 CDT CPT-64468 Fluzone High-Dose Intramuscular Suspension 11/15 13:36:47 CDT CPT-J0897 Prolia 60 mg 08:50:41 CDT CPT-42216 Abx/Therapy Injection 08:50:41 CDT CPT-27879 Bone Density 12:06:12 CDT CPT-91174 Bone Density 08:54:40 CDT CPT-OV Office Visit 15:37:02 CDT CPT-59069 Postop F/U Visit 15:47:49 CDT CPT-58091 Postop F/U Visit 15:21:02 CDT CPT-TCMH Transitional Care Mgmt-High 07:52:27 CDT 20 20/06/01 CPT-73537 Venipuncture Draw Fee 13:51:18 CDT CPT-63626 Venipuncture Draw Fee 10:14:55 DOUGHMAKER CPT-94602 Venipuncture Draw Fee 13:39:45 DOUGHMAKER CPT-OV Office Visit 15:11:22 DOUGHMAKER CPT-19764 Venipuncture Draw Fee 09:20:49 DOUGHMAKER CPT-49504 Venipuncture Draw Fee 16:52:15 DOUGHMAKER CPT-17176 Venipuncture Draw Fee 10:37:24 DOUGHMAKER CPT-01158 Venipuncture Draw Fee 08:21:21 DOUGHMAKER CPT-02212 Venipuncture Draw Fee 08:30:20 DOUGHMAKER CPT-14144 Venipuncture Draw Fee 14:53:21 DOUGHMAKER CPT-51622 Venipuncture Draw Fee 09:40:56 DOUGHMAKER CPT-66755 Venipuncture Draw Fee 10:30:47 DOUGHMAKER CPT-32762 Venipuncture Draw Fee 10:46:17 DOUGHMAKER CPT-97625 Venipuncture Draw Fee 11:12:45 DOUGHMAKER CPT-12788 Venipuncture Draw Fee 09:53:33 DOUGHMAKER CPT-68257 Venipuncture Draw Fee 11:53:51 DOUGHMAKER CPT-60109 Venipuncture Draw Fee 10:33:50 DOUGHMAKER CPT-11494 Venipuncture Draw Fee 10:05:01 DOUGHMAKER CPT-39269 Venipuncture Draw Fee 14:32:52 DOUGHMAKER CPT-63475 Venipuncture Draw Fee 09:46:13 DOUGHMAKER CPT-27567 Venipuncture Draw Fee 11:34:27 DOUGHMAKER CPT-83635 Venipuncture Draw Fee 13:17:16 DOUGHMAKER CPT-12274 Venipuncture Draw Fee 12:05:39 CDT CPT-32561 Venipuncture Draw Fee 12:49:12 CDT CPT-66184 Venipuncture Draw Fee 12:37:18 CDT CPT-21614 Venipuncture Draw Fee 10:57:11 CDT CPT-15367 Venipuncture Draw Fee 13:47:40 CDT CPT-23610 Venipuncture Draw Fee 10:02:17 CDT CPT-67996 TB Tubersol 17:32:32 CDT CPT-OV Office Visit 16:21:53 CDT CPT-OV Office Visit 15:49:22 CDT CPT-OV Office Visit 17:16:31 CDT CPT-OV Office Visit 10:43:31 CDT
--- OUTSIDE RECORDS SUMMARY | 2019-02-09 11:34 | XMS REPORT | Clinical Summary ---
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 Kyile Holt APRN Personal history of other specified dise ases ADENOCARCINOMA, ASCENDING COLON 153.6 Correction 2012 Hope Benavidez MD PhD Malignant neoplasm of ascending colon Hyperkalemia 276.7 Resolved Hope Benavidez MD PhD Hyperpotassemia GERD 530.81 Resolved Kylie Yokum STOVE TENDER Esophageal reflux Health maintenance exam V70.0 Resolved Adolfo Yates MD Routine general medical examination at a health care facility Anemia 285.9 Resolved Kylie Yanet STOVE TENDER Anemia, unspecified Personal history of malignant neoplasm of large intestine V10.05 Active Adam Yates MD Personal history of malignant neoplasm of large intestine Hypomagnesemia 275.2 Resolved Kylie Yanet STOVE TENDER Disorders of magnesium metabolism Weakness 780.79 Resolved [...] unspecified FH Colon Cancer V16.0 Active Adam Delgado D Family history of malignant neoplasm of gastrointestinal [...] Sebaceous cyst, scalp 706.2 Resolved Kylie Yokum STOVE TENDER Sebaceous cyst Cervical lymphadenopathy, anterior, left 785.6 Resolv ed Kylie Yokum STOVE TENDER Enlargement of lymph nodes Need for prophylactic vaccination and inoculation against in fluenza V04.81 Resolved Adam Yates MD Need for prophylactic vaccination and inoculation against influenza Preventive health care V70.0 Resolved Kylie Lundu m STOVE TENDER Routine general medical examination at a health care facility Thyroid nodule, left 241.0 Resolved Selena Yates MD Nontoxic uninodular goiter Screening mammogram V76.12 Resolved Kylie Yokum A PRN Other screening mammogram Mandy 706.2 Resolved Kylie Yokum STOVE TENDER Sebaceous cyst Colon cancer, ascending 153.6 Resolved Kylie Yok um STOVE TENDER Malignant neoplasm of ascending colon Foot pain, left 729.5 Resolved Kylie Yokum STOVE TENDER Pain in limb Splinter 919.6 Resolved Kylie Yokum STOVE TENDER Superficial foreign body (splinter) of other, multiple, and unspecified sites, without major open wound and without mention of infection Rash 782.1 Resolved Kylie Yokum STOVE TENDER Rash and other nonspecific skin eruption Cyst 706.2 Resolved Kylie Yokum STOVE TENDER Sebaceous cyst Body Mass Index 23.0-23.9 Adult Refinement 2017 Kylie Yokum STOVE TENDER Body Mass Index between 19-24, adult BMI [...] of magnesium metabolism Hypokalemia 276.8 Resolved Adam San Hypopotassemia Enlarged thyroid 240.9 Resolved Adam enamorado [...] a health care facility Preoperative examination V72.84 Inactive Tracy hi Yokum STOVE TENDER Preoperative examination, unspecified ABDOMINAL PAIN, RIGHT LOWER QUADRANT ICD-789.03 Inactive Kina Joshua STOVE TENDER ADENOCARCINOMA, COLON, 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 Dick Yates MD ABDOMINAL PAIN, GENERALIZED ICD-789.07 Inactive Hope Benavidez MD PhD FEVER UNSPECIFIED ICD-780.60 Inactive Hope cohn MD PhD UNSPECIFIED VENOUS INSUFFICIENCY ICD-459.81 [place] ctive Adam Yates MD ADENOCARCINOMA, 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 Inac tive Hope Benavidez MD PhD Hyperkalemia ICD-276.7 Inactive Hope Benavidez MD PhD GERD ICD-530.81 Inactive Kylie Holt STOVE TENDER 2015 Health maintenance exam ICD-V70.0 Bam Yates MD Anemia ICD-285.9 Inactive Kylie Holt STOVE TENDER 07/24 Hypomagnesemia ICD-275.2 Inactive Kylie Holt STOVE TENDER Weakness ICD-780.79 Inactive Hope Benavidez MD P Aftercare following surgery of the teeth,oral cavity [...] cyst, scalp ICD-706.2 Inactive Tracy hi Yokum STOVE TENDER Cervical lymphadenopathy, anterior, left ICD-785.6 Inactive Klyie Yokum STOVE TENDER Need for prophylactic vaccination and inoculation against in fluenza ICD-V04.81 Inactive Adam Yates MD Preventive health care ICD-V70.0 Inactive Ka thi Yokum STOVE TENDER Thyroid nodule, left ICD-241.0 Inactive Selena Yates MD Screening mammogram ICD-V76.12 Inactive Kylie Yokum STOVE TENDER Mandy ICD-706.2 Inactive Kylie Yokum STOVE TENDER 07/20 Colon cancer, ascending ICD-153.6 Inactive K athi Yokum STOVE TENDER Foot pain, left ICD-729.5 Inactive Kylie Yokum STOVE TENDER Splinter ICD-919.6 Inactive Kylie Yokum STOVE TENDER 2017 Rash ICD-782.1 Inactive Kylie Yokum STOVE TENDER 07/25 Cyst ICD-706.2 Inactive Kylie Yokum STOVE TENDER 08/11 Unspecified fall, initial encounter ICD-E888.9 Inactive [...] adult ICD-V70.0 Inacti ve Kylie Holt AMY Preoperative examination ICD-V72.84 Inactive Kylie Holt AMY Medication List Medication Instructions Start Date Stop Date Generic Name NDC Status Provider Patient Instruction ASPIR-LOW 81 MG ORAL TABLET DELAYED RELEASE 1 daily ASPIRIN 94044384442 Active Kylie Lundoliver REYES Active SYNTHROID 100 MCG ORAL TABLET Take one tablet 30 minut es before breakfast or other medications for hypothyroidism. LEVOTHYROX INE SODIUM 55672426473 Active Kylie Lundoliver REYES Active VOLTAREN 1 % TRANSDERMAL GEL apply 2 grams q 6-8 hour to left arm as needed for pain DICLOFENAC SODIUM 51360844348 Active Kylie Escalonapair Marrero Active IMODIUM A-D 2 MG ORAL TABLET 1 tablet twice a day LOPERAMIDE HCL 79607889087 Active Kylie Polapari REYES Active COQ10 100 MG ORAL CAPSULE 1 daily COENZYME Q10 298586 49454 Active Forks Delaplaine, RMA Active VITAMIN D3 2000 UNIT ORAL CAPSULE Melaleuca-One daily CHOLECALCIFEROL 72488011250 Active Kylie Holt APRN Active PROBIOTIC DAILY ORAL CAPSULE Take one daily PROBIO TIC PRODUCT 98310986627 Active Kylie Holt APRN Active IRON 325 (65 Fe) MG ORAL TABLET 1 every other day FERROUS SULFATE 42435605577 No Longer Active Kylie Holt STOVE TENDER Active FLORANEX ORAL PACKET 1 pack three times daily, for bowel health LACTOBACILLUS 88294444362 No Longer Active Kylie Holt STOVE TENDER Active LOMOTIL 2.5-0.025 MG ORAL TABLET 1 tab by mouth prn 23/10/23 DIPHENOXYLATE-ATROPINE 01327194167 No Longer Active Kylie Lundum STOVE TENDER Active MAGNESIUM GLUCONATE 250 MG ORAL TABLET 1 tab tid 23/10/23 MAGNESIUM GLUCONATE 22173588980 No Longer Active Kylie Holt APRN Active CYANOCOBALAMIN 1000 MCG/ML INJECTION SOLUTION 1 injection ev ruben 2 weeks CYANOCOBALAMIN 97816057298 No Longer Active Kylie Lund um STOVE TENDER Active ATENOLOL 25 MG ORAL TABLET 1/2 pill by mouth daily, fo r headaches, blood pressure ATENOLOL 53764220642 Active Kylie Holt STOVE TENDER Active PROPRANOLOL HCL 80 MG ORAL TABLET 1 tab tue. and thur. PROPRANOLOL HCL 40507981346 No Longer Active Hope Benavidez MD PhD A ctive VITAMIN D3 4000 IU 1 tab 3 times daily VITAMIN D3 4000 IU No Longer Active Hope Benavidez MD PhD Active BACTRIM DS 800-160 MG ORAL TABLET 1 pill by mouth twice claudio y, for UTI SULFAMETHOXAZOLE-TRIMETHOPRIM 65287051414 No Longer Active Hope Benavidez MD PhD Active PROLIA 60 MG/ML SUBCUTANEOUS SOLUTION 1 shot every 6 months for osteoprosis DENOSUMAB 40485258448 Active Hope Benavidez MD PhD Active CALCIUM + D + K 750-500-40 MG-UNT-MCG ORAL TABLET 1 tab by m out twice daily CALCIUM-VITAMIN D-VITAMIN K 46421968685 Active Hope valdez MD PhD Active DAILY VALUE MULTIVITAMIN ORAL TABLET 1 tab by mouth twice daily 201 05/16/14 MULTIPLE VITAMIN 30675888189 Active Hope Benavidez MD PhD Acti ve FISH OIL 306 MG CAPS 1 tab by mouth three times daily OMEGA-3 FATTY ACIDS 17047566516 Active Hope Benavidez MD PhD Active LUTEIN 10 MG ORAL TABLET 1 tab daily LUTEIN 02070904 408 Active Hope Benavidez MD PhD Active TRIAMTERENE-HCTZ 37.5-25 MG ORAL TABLET 1 tab by mouth daily 10/22 TRIAMTERENE-HCTZ 11154211351 Active Kylie Yanet REYES Active CYCLOBENZAPRINE HCL 10 MG ORAL TABLET [address] [facility] three times daily as needed for headaches CYCLOBENZAPRINE HCL 07205075583 No Longer Active Adam Yates MD Active OMEPRAZOLE 20 MG ORAL CAPSULE DELAYED RELEASE 1 tablet by [facility] daily for GERD OMEPRAZOLE 45226984992 No Longer Active Adam Yates MD Active ZOFRAN 8 MG ORAL TABLET 1 tab by mouth every 12 hours prn 4 ONDANSETRON HCL 94011678830 No Longer Active Adam Yates MD Active PHENADOZ 25 MG RECTAL SUPPOSITORY 1 every 4 hrs. PRN 2 PROMETHAZINE HCL 32390116898 No Longer Active Adam Yates MD A ctive POTASSIUM CHLORIDE 20 MEQ ORAL PACKET by mouth twice a day prn 2 POTASSIUM CHLORIDE 81449912517 No Longer Active Adam Carpenter MD Active PROMETHAZINE HCL 25 MG ORAL TABLET 1 Q. 4 hr. PRN PROMETHAZINE HCL 42325138213 No Longer Active Adam Yates MD Active INNOPRAN XL 120 MG ORAL CAPSULE EXTENDED RELEASE 24 HO UR Take one by mouth daily PROPRANOLOL HCL SR BEADS 98531163460 No Longer Active Adam Yates MD Active FLAGYL 500 MG ORAL TABLET 1 pill by mouth three times daily, for diarrhea METRONIDAZOLE 29474047296 No Longer Active Hope landers MD PhD Active DYAZIDE 37.5-25 MG ORAL CAPSULE 1 qd TRIA MTERENE-HCTZ 77177264859 No Longer Active Hope Benavidez MD PhD Active PROZAC 20 MG ORAL CAPSULE 1 q d FLUOXETINE HCL 10993290369 No Longer Active Hope Benavidez MD PhD Active SIMVASTATIN 40 MG ORAL TABLET 1 qd SIMVAS TATIN 79973451816 No Longer Active Adam Yates MD Active MELOXICAM 15 MG ORAL TABLET 1 qd MELOXICAM 45662243859 No Longer Active Adam Yates MD Active EXCEDRIN EXTRA STRENGTH 250-250-65 MG ORAL TABLET 1-2 q6h IL N headache [id number] 80775364537 Active Hope Benavidez MD PhD Active FLAGYL 500 MG ORAL TABLET 1 qid METRONIDAZOL E 43898434048 No Longer Active Adam Yates MD Active LEVAQUIN 750 MG ORAL TABLET 1 qd LEVOFLOXAC IN 51789563901 No Longer Active Adam Yates MD Active ADULT ASPIRIN LOW STRENGTH 81 MG ORAL TABLET DISINTEGRATING 1 qd ASPIRIN 53299810033 Active Hope Benavidez MD PhD Active LEVAQUIN 750 MG ORAL TABLET 1 qd LEVAQUIN 750 MG ORAL TABLET 789397 LEVOFLOXACIN Inactive FLAGYL 500 MG ORAL TABLET 1 qid FLAGYL 500 MG ORAL TABLET 396270 METRONIDAZOLE Inactive MELOXICAM 15 MG ORAL TABLET 1 qd MELOXICAM 15 MG ORAL TABLET 957706 MELOXICAM Inactive SIMVASTATIN 40 MG ORAL TABLET 1 qd SIMVASTATIN 40 MG ORAL TABLET 532388 SIMVASTATIN Inactive PROZAC 20 MG ORAL CAPSULE 1 q d PROZAC 20 MG ORAL CAPSULE 994287 FLUOXETINE HCL Inactive DYAZIDE 37.5-25 MG ORAL CAPSULE 1 qd 5 DYAZIDE 37.5-25 MG ORAL CAPSULE 296101 TRIAMTERENE-HCTZ Inactive INNOPRAN XL 120 MG ORAL CAPSULE EXTENDED RELEASE 24 HO UR Take one by mouth daily INNOPRAN XL 120 MG ORAL CAPSULE EXTENDED RELEASE 24 HOUR PROPRANOLOL HCL SR BEADS Inactive PROMETHAZINE HCL 25 MG ORAL TABLET 1 Q. 4 hr. PRN 2013 PROMETHAZINE HCL 25 MG ORAL TABLET 510682 PROMETHAZINE HCL Inactive POTASSIUM CHLORIDE 20 MEQ ORAL PACKET by mouth twice a day prn 2 POTASSIUM CHLORIDE 20 MEQ ORAL PACKET 5989419 POTASSIUM CHLORIDE Inactive PHENADOZ 25 MG RECTAL SUPPOSITORY 1 every 4 hrs. PRN 2 PHENADOZ 25 MG RECTAL SUPPOSITORY 972962 PROMETHAZINE HCL Inactive ZOFRAN 8 MG ORAL TABLET 1 tab by mouth every 12 hours prn 4 ZOFRAN 8 MG ORAL TABLET 225648 ONDANSETRON HCL Inactive OMEPRAZOLE 20 MG ORAL CAPSULE DELAYED RELEASE 1 tablet by mo ut daily for GERD OMEPRAZOLE 20 MG ORAL CAPSULE DELAYED RELEASE 19 8051 OMEPRAZOLE Inactive CYCLOBENZAPRINE HCL 10 MG ORAL TABLET 1 tablet by mout h three times daily as needed for headaches CYCLOBENZAPRINE HCL 10 MG ORAL TABLET 421632 CYCLOBENZAPRINE HCL Inactive VITAMIN D3 4000 IU 1 tab 3 times daily VITAMIN D3 4000 IU Inactive PROPRANOLOL HCL 80 MG ORAL TABLET 1 tab tue. and thur. PROPRANOLOL HCL 80 MG ORAL TABLET 926093 PROPRANOLOL HCL Inacti ve CYANOCOBALAMIN 1000 MCG/ML INJECTION SOLUTION 1 injection ev ruben 2 weeks CYANOCOBALAMIN 1000 MCG/ML INJECTION SOLUTION 30 9594 CYANOCOBALAMIN Inactive MAGNESIUM GLUCONATE 250 MG ORAL TABLET 1 tab tid 23/10/23 MAGNESIUM GLUCONATE 250 MG ORAL TABLET 555996 MAGNESIUM GLUCONATE Inactive LOMOTIL 2.5-0.025 MG ORAL TABLET 1 tab by mouth prn 20 23/10/23 LOMOTIL 2.5-0.025 MG ORAL TABLET 6540215 DIPHENOXYLATE-ATROPINE Inac tive FLORANEX ORAL PACKET 1 pack three times daily, for bowel health FLORANEX ORAL PACKET 07525869116 LACTOBACILLUS Inactive IRON 325 (65 Fe) MG ORAL TABLET 1 every other day 2015 IRON 325 (65 Fe) MG ORAL TABLET 814457 FERROUS SULFATE Inactive FLAGYL 500 MG ORAL TABLET 1 pill by mouth three times daily, for diarrhea FLAGYL 500 MG ORAL TABLET 506846 METRONIDAZOLE I nactive BACTRIM DS 800-160 MG ORAL TABLET 1 pill by mouth twice claudio y, for UTI BACTRIM DS 800-160 MG ORAL TABLET 718338 SULFAMETHOXAZOLE-TRIMETHOPRIM Inactive Advance Directives Directive Description Start [...] ... - Chemistry cholesterol, serum 211 mg/dL 114-578 6065/01/10 triglyceride, serum, fasting 77 mg/dL 30-200 HDL cholesterol, serum 70 mg/dL 32-60 LDL cholesterol, serum 126 mg/dL 0-130 TSH 1.19 m[iU]/mL 0.36-3.74 sodium, serum 141 mmol/L 735-014 1524/01/10 potassium, serum 3.7 mmol/L 3.5-5.2 chloride, serum [...] ... - Chemistry sodium, serum 142 mmol/L 581-228 0503/04/16 carbon dioxide, venous blood 30.0 mmol/L 21.0-32 [...] 50-136 Lab Report: Free Thyroxine (L) - Chemical Process Engineer ry thyroxine, serum, free 0.82 ng/dL 0.59-1.17 Lab Report: Thyroid Stimulating Hormone (L), Free Thyroxine (L) - Chemistry TSH 13.85 m[iU]/mL 0.36-3.74 thyroxine, serum, free 0.65 ng/dL 0.59-1.17 TSH 13.59 m[iU]/mL 0.36-3.74 thyroxine, serum, free 0.47 ng/dL 0.59-1.17 Encounters Code Encounter Date Provider Facility CPT-91118 21132-Cms Vst-Est Level III 12:20:52 [facility] 56103-Pow Vst-Est Level III 09:15:19 [facility] Level 4 Est. Patient 15:35:24 HEARTH FEEDER Adam Yates MD [facility] CPT-54022 Level 3 New Patient 12:08:54 HEARTH FEEDER Adam Yates MD [facility] CPT-01603 68226-Yqc Vst-Est Level IV 19:48:30 HEARTH FEEDER Tracy Holt [facility] CPT-13648 [id number] Vst-Est Level III 14:29:19 CDT Ka thi Yokum [facility] CPT-74890 Level 2 Est. Patient 14:58:26 CDT Kylie boyd [facility] CPT-70919 Level 3 Est. Patient 08:15:24 HEARTH FEEDER Kylie boyd [facility] CPT-08027 Level 2 Est. Patient 14:27:16 HEARTH FEEDER Kylie boyd [facility] CPT-94910 Level 3 Est. Patient 17:54:48 CDT Kylie boyd [facility] CPT-32202 Level 3 Est. Patient 16:26:30 CDT Kina blackmon [facility] CPT-57798 Level 3 New Patient 16:22:01 HEARTH FEEDER Adam Yates MD [facility] CPT-82236 Level 4 Est. Patient 17:00:48 CDT Kylie Lund [facility] CPT-74190 Level 3 Est. Patient 13:15:54 CDT Kylie boyd [facility] CPT-57927 Level 3 Est. Patient 09:10:11 CDT Kylie Lund [facility] CPT-75191 Level 4 Est. Patient 12:08:30 HEARTH FEEDER Hope cohn MD PhD [facility] CPT-84821 Level 4 Est. Patient 19:08:42 HEARTH FEEDER Hope cohn MD PhD [facility] CPT-13311 Level 4 Est. Patient 20:04:51 CDT Hope cohn MD PhD [facility] CPT-65000 Level 3 New Patient 01:46:11 HEARTH FEEDER Hope landers MD PhD [facility] Procedures Code Procedure Name Date Entry Date Standard Desc ription CPT-FF3450F (4274F) Influenza immunization administe red or previously received 12:20:52 HEARTH FEEDER CPT-G0008 Administration of Influenza Virus Vaccine 15:08:32 CDT CPT-32271 Flublok Quadrivalent (Flu) Syringe IM(Me dicare) 15:08:32 CDT CPT-09125 Venipuncture Draw Fee 10:06:15 CDT CPT-63043 Bone Density - XRAY USE ONLY 11:51:35 CDT 2 CPT-46214 Free T4 - LAB USE ONLY 11:44:37 CDT CPT-96662 TSH - LAB USE ONLY 11:44:37 CDT CPT-37350 Venipuncture Draw Fee 11:44:37 CDT CPT-J0897 Prolia 60 mg 10:36:55 CDT CPT-74889 Abx/Therapy Injection 10:36:55 CDT CPT-82170 Venipuncture Draw Fee 13:34:11 CDT CPT-G0439 Subsequent Annual Wellness Exam 09:15:19 CDT CPT-13062 Postop F/U Visit 15:45:41 CDT CPT-44747 Sono Soft Tissue Head and Neck - XRAY US E ONLY 11:56:06 HEARTH FEEDER CPT-13343 Abx/Therapy Injection 09:40:08 HEARTH FEEDER CPT-J0897 Prolia 60 mg 09:40:08 HEARTH FEEDER CPT-19990 First Vx - Ix admin for Medicare patients 02/08 10:02:45 CDT CPT-40555 Fluzone Quadrivalent Intramuscular Suspe nsion 0.5 ML 10:02:45 CDT CPT-08764 Magnesium - LAB USE ONLY 09:41:00 CDT 12/09 CPT-30970 Renal Panel - LAB USE ONLY 09:41:00 CDT 201 09/17/01 CPT-43056 Venipuncture Draw Fee 09:41:00 CDT CPT-21877 Calcium - LAB USE ONLY 17:25:11 CDT CPT-J0897 Prolia 60 mg 15:10:59 CDT CPT-28952 Abx/Therapy Injection 15:10:59 CDT CPT-G0439 [facility] Annual Wellness Exam 14:29:19 CDT CPT-05549 Venipuncture Draw Fee 10:59:04 CDT CPT-19311 CMP - LAB USE ONLY 10:59:04 CDT CPT-50785 CBC with Diff - LAB USE ONLY 10:59:03 CDT 2 CPT-J0897 Prolia 60 mg 15:46:54 HEARTH FEEDER CPT-08770 Abx/Therapy Injection 15:46:54 HEARTH FEEDER CPT-62674 Microalbumin - LAB USE ONLY 09:41:32 HEARTH FEEDER 20 23/01/15 CPT-99276 Free T4 - LAB USE ONLY 09:41:32 HEARTH FEEDER CPT-34428 TSH - LAB USE ONLY 09:41:32 HEARTH FEEDER CPT-21950 BMP - LAB USE ONLY 09:41:32 HEARTH FEEDER CPT-32176 Venipuncture Draw Fee 09:41:32 HEARTH FEEDER CPT-40329 First Vx - Ix admin for Medicare patients 11:19:30 CDT CPT-28267 Fluzone High-Dose Intramuscular Suspension 12/07 11:19:30 CDT CPT-J0897 Prolia 60 mg 14:55:42 CDT CPT-47868 Abx/Therapy Injection 14:55:42 CDT CPT-42478 Bone Density - XRAY USE ONLY 10:27:12 CDT 2 CPT-G0439 Subsequent Annual Wellness Exam 17:54:53 CDT CPT-70335 Foot, left, comp min 3V - XRAY USE ONLY 12:22:49 CDT CPT-G0009 Administration of Pneumococcal Vaccine 3 12:18:00 CDT CPT-98666 Pneumovax 23 Injection Injectable 25 MCG /0.5ML 12:18:00 CDT CPT-J0897 Prolia 60 mg 14:14:16 HEARTH FEEDER CPT-30683 Abx/Therapy Injection 14:14:15 HEARTH FEEDER CPT-32123 Lipid - LAB USE ONLY 10:01:52 HEARTH FEEDER 2 CPT-75129 Calcium - LAB USE ONLY 10:01:51 HEARTH FEEDER CPT-45285 Venipuncture Draw Fee 10:01:51 HEARTH FEEDER CPT-LR Lesion Removal 16:22:01 HEARTH FEEDER CPT-47417 TSH - LAB USE ONLY 14:26:02 CDT CPT-13232 CMP - LAB USE ONLY 14:26:01 CDT CPT-97565 CBC with Diff - LAB USE ONLY 14:26:01 CDT 2 CPT-12692 Venipuncture Draw Fee 14:26:01 CDT CPT-00168 First Vx - Ix admin for Medicare patients 13:27:08 CDT CPT-02172 Fluzone High-Dose Intramuscular Suspension 11/26 13:27:08 CDT CPT-G0438 Initial Annual Wellness Exam 14:19:57 CD T CPT-G0009 Administration of Pneumococcal Vaccine 9 11:36:25 CDT CPT-95289 Prevnar 13 Intramuscular Suspension 1 1:36:25 CDT CPT-87893 Prevnar 13 Intramuscular Suspension 1 0:40:58 CDT CPT-J0897 Prolia 60 mg 10:37:16 CDT CPT-63873 Abx/Therapy Injection 10:37:16 CDT CPT-J0897 Prolia 60 mg 16:09:34 HEARTH FEEDER CPT-J0897 Prolia 60 mg 11:10:35 HEARTH FEEDER CPT-74736 Abx/Therapy Injection 11:10:35 HEARTH FEEDER CPT-000 Give Appropriate Flu Vaccine 17:01:15 HEARTH FEEDER 2 CPT-26104 Fluzone High Dose (65+) 15:03:08 HEARTH FEEDER 02/15 CPT-91150 Immunization Single Admin 15:03:08 HEARTH FEEDER 2014 CPT-OV Office Visit 15:58:06 CDT CPT-J0897 Prolia 60 mg 08:45:38 CDT CPT-65198 Abx/Therapy Injection 08:45:38 CDT CPT-J3420 Vitamin B12 1000mcg (Cyanocobalamin) 09:26:20 HEARTH FEEDER CPT-91349 Abx/Therapy Injection 09:26:20 HEARTH FEEDER CPT-J3420 Vitamin B12 1000mcg (Cyanocobalamin) 09:44:40 HEARTH FEEDER CPT-66995 Abx/Therapy Injection 09:44:40 HEARTH FEEDER CPT-J3420 Vitamin B12 1000mcg (Cyanocobalamin) 09:15:54 HEARTH FEEDER CPT-76946 Abx/Therapy Injection 09:15:54 HEARTH FEEDER CPT-J3420 Vitamin B12 1000mcg (Cyanocobalamin) 09:46:44 HEARTH FEEDER CPT-22914 Abx/Therapy Injection 09:46:44 HEARTH FEEDER CPT-J3420 Vitamin B12 1000mcg (Cyanocobalamin) 09:47:34 HEARTH FEEDER CPT-83365 Abx/Therapy Injection 09:47:34 HEARTH FEEDER CPT-J3420 Vitamin B12 1000mcg (Cyanocobalamin) 14:35:50 HEARTH FEEDER CPT-J3420 Vitamin B12 1000mcg (Cyanocobalamin) 09:25:05 HEARTH FEEDER CPT-40845 Abx/Therapy Injection 09:25:05 HEARTH FEEDER CPT-G0008 Administration of Influenza Virus Vaccine 13:36:47 CDT CPT-36758 Fluzone High-Dose Intramuscular Suspension 11/15 13:36:47 CDT CPT-J0897 Prolia 60 mg 08:50:41 CDT CPT-62402 Abx/Therapy Injection 08:50:41 CDT CPT-40937 Bone Density 12:06:12 CDT CPT-34881 Bone Density 08:54:40 CDT CPT-OV Office Visit 15:37:02 CDT CPT-31823 Postop F/U Visit 15:47:49 CDT CPT-16544 Postop F/U Visit 15:21:02 CDT CPT-TCM Transitional Care Mgmt-High 07:52:27 CDT 20 20/06/01 CPT-57299 Venipuncture Draw Fee 13:51:18 CDT CPT-36587 Venipuncture Draw Fee 10:14:55 HEARTH FEEDER CPT-25269 Venipuncture Draw Fee 13:39:45 HEARTH FEEDER CPT-OV Office Visit 15:11:22 HEARTH FEEDER CPT-24666 Venipuncture Draw Fee 09:20:49 HEARTH FEEDER CPT-58479 Venipuncture Draw Fee 16:52:15 HEARTH FEEDER CPT-53099 Venipuncture Draw Fee 10:37:24 HEARTH FEEDER CPT-57662 Venipuncture Draw Fee 08:21:21 HEARTH FEEDER CPT-57397 Venipuncture Draw Fee 08:30:20 HEARTH FEEDER CPT-03185 Venipuncture Draw Fee 14:53:21 HEARTH FEEDER CPT-16813 Venipuncture Draw Fee 09:40:56 HEARTH FEEDER CPT-26049 Venipuncture Draw Fee 10:30:47 HEARTH FEEDER CPT-11568 Venipuncture Draw Fee 10:46:17 HEARTH FEEDER CPT-89604 Venipuncture Draw Fee 11:12:45 HEARTH FEEDER CPT-39246 Venipuncture Draw Fee 09:53:33 HEARTH FEEDER CPT-39436 Venipuncture Draw Fee 11:53:51 HEARTH FEEDER CPT-27111 Venipuncture Draw Fee 10:33:50 HEARTH FEEDER CPT-07441 Venipuncture Draw Fee 10:05:01 HEARTH FEEDER CPT-53395 Venipuncture Draw Fee 14:32:52 HEARTH FEEDER CPT-17861 Venipuncture Draw Fee 09:46:13 HEARTH FEEDER CPT-81583 Venipuncture Draw Fee 11:34:27 HEARTH FEEDER CPT-91609 Venipuncture Draw Fee 13:17:16 HEARTH FEEDER CPT-00315 Venipuncture Draw Fee 12:05:39 CDT CPT-56373 Venipuncture Draw Fee 12:49:12 CDT CPT-42355 Venipuncture Draw Fee 12:37:18 CDT CPT-90245 Venipuncture Draw Fee 10:57:11 CDT CPT-50878 Venipuncture Draw Fee 13:47:40 CDT CPT-63666 Venipuncture Draw Fee 10:02:17 CDT CPT-75821 TB Tubersol 17:32:32 CDT CPT-OV Office Visit 16:21:53 CDT CPT-OV Office Visit 15:49:22 CDT CPT-OV Office Visit 17:16:31 CDT CPT-OV Office Visit 10:43:31 CDT
--- OUTSIDE RECORDS SUMMARY | 2019-02-09 11:34 | XMS REPORT | Clinical Summary ---
Author Author Renaldo, Florecita Munoz Organization [facility] [employer] Address Unknown Phone Unavailable Allergies, Adverse Reactions, [...] PhD Hyperpotassemia GERD 530.81 Resolved Kylie Yokum INSIDE ACCOUNT REPRESENTATIVE Esophageal reflux Health maintenance exam V70.0 Resolved Adolfo Yates MD Routine general medical examination at a health care facility Anemia 285.9 Resolved Kylie Yanet INSIDE ACCOUNT REPRESENTATIVE Anemia, unspecified Personal history of malignant neoplasm of large intestine V10.05 Active Adam Yates MD Personal history of malignant neoplasm of large intestine Hypomagnesemia 275.2 Resolved Kylie Yanet INSIDE ACCOUNT REPRESENTATIVE Disorders of magnesium metabolism Weakness 780.79 Resolved [...] Sebaceous cyst, scalp 706.2 Resolved Kylie Yokum INSIDE ACCOUNT REPRESENTATIVE Sebaceous cyst Cervical lymphadenopathy, anterior, left 785.6 Resolv ed Kylie Yokum INSIDE ACCOUNT REPRESENTATIVE Enlargement of lymph nodes Need for prophylactic vaccination and inoculation against in fluenza V04.81 Resolved Adam Yates MD Need for prophylactic vaccination and inoculation against influenza Preventive health care V70.0 Resolved Kylie Lundu m INSIDE ACCOUNT REPRESENTATIVE Routine general medical examination at a health care facility Thyroid nodule, left 241.0 Resolved Selena Yates MD Nontoxic uninodular goiter Screening mammogram V76.12 Resolved Kylie Yokum A PRN Other screening mammogram Mandy 706.2 Resolved Kylie Yokum INSIDE ACCOUNT REPRESENTATIVE Sebaceous cyst Colon cancer, ascending 153.6 Resolved Kylie Yok um INSIDE ACCOUNT REPRESENTATIVE Malignant neoplasm of ascending colon Foot pain, left 729.5 Resolved Kylie Yokum INSIDE ACCOUNT REPRESENTATIVE Pain in limb Splinter 919.6 Resolved Kylie Yokum INSIDE ACCOUNT REPRESENTATIVE Superficial foreign body (splinter) of other, multiple, and unspecified sites, without major open wound and without mention of infection Rash 782.1 Resolved Kylie Yokum INSIDE ACCOUNT REPRESENTATIVE Rash and other nonspecific skin eruption Cyst 706.2 Resolved Kylie Yokum INSIDE ACCOUNT REPRESENTATIVE Sebaceous cyst Body Mass Index 23.0-23.9 Adult Refinement 2017 Kylie Yokum INSIDE ACCOUNT REPRESENTATIVE Body Mass Index between 19-24, adult BMI [...] care, adult V70.0 Inactive 08/08 Kylie Holt INSIDE ACCOUNT REPRESENTATIVE Routine general medical examination at a health care facility Preoperative examination V72.84 Active Kylie Yok um INSIDE ACCOUNT REPRESENTATIVE Preoperative examination, unspecified ADENOCARCINOMA, COLON, 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 Dick Yates MD ABDOMINAL PAIN, RIGHT LOWER QUADRANT ICD-789.03 Inactive Kina Joshua INSIDE ACCOUNT REPRESENTATIVE UNSPECIFIED VENOUS INSUFFICIENCY ICD-459.81 [place] ctive Adam Yates MD ABDOMINAL PAIN, GENERALIZED ICD-789.07 Inactive Hope Benavidez MD PhD ADENOCARCINOMA, 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 Inac tive Hope Benavidez MD PhD Hyperkalemia ICD-276.7 Inactive Hope Benavidez MD PhD FEVER UNSPECIFIED ICD-780.60 Inactive Hope cohn MD PhD Health maintenance exam ICD-V70.0 Inactive Adolfo Yates MD Anemia ICD-285.9 Inactive Kylie Holt INSIDE ACCOUNT REPRESENTATIVE 07/24 GERD ICD-530.81 Inactive Kylie Holt INSIDE ACCOUNT REPRESENTATIVE 2015 Hypomagnesemia ICD-275.2 Inactive Kylie Holt INSIDE ACCOUNT REPRESENTATIVE Weakness ICD-780.79 Inactive Hope Benavidez MD P hD Asymptomatic postmenopausal status (age-related) (natural) I CD-V49.81 Inactive Hope Benavidez MD PhD Aftercare following surgery of the teeth,oral cavity a nd digestive system, NEC ICD-V58.75 Inactive Adam Yates MD Colon cancer ICD-153.9 Inactive Adam luna MD Dysuria ICD-788.1 Inactive Hope Benavidez MD PhD 201 05/19/01 Adenocarcinoma, ascending colon ICD-153.6 Inac tive Adam Yates MD Sebaceous cyst, scalp ICD-706.2 Inactive Tracy hi Yokum INSIDE ACCOUNT REPRESENTATIVE Cervical lymphadenopathy, anterior, left ICD-785.6 Inactive Kylie Yokum INSIDE ACCOUNT REPRESENTATIVE Need for prophylactic vaccination and inoculation against in fluenza ICD-V04.81 Inactive Adam Yates MD Diarrhea, functional ICD-564.5 Inactive Selena Yates MD Preventive health care ICD-V70.0 Inactive Ka thi Yokum INSIDE ACCOUNT REPRESENTATIVE Mandy ICD-706.2 Inactive Kylie Yokum INSIDE ACCOUNT REPRESENTATIVE 07/20 Colon cancer, ascending ICD-153.6 Inactive K athi Yokum INSIDE ACCOUNT REPRESENTATIVE Thyroid nodule, left ICD-241.0 Inactive Selena Yates MD Splinter ICD-919.6 Inactive Kylie Yokum INSIDE ACCOUNT REPRESENTATIVE 2017 Rash ICD-782.1 Inactive Kylie Yokum INSIDE ACCOUNT REPRESENTATIVE 07/25 Cyst ICD-706.2 Inactive Kylie Yokum INSIDE ACCOUNT REPRESENTATIVE 08/11 Screening mammogram ICD-V76.12 Inactive Kylie Yokum INSIDE ACCOUNT REPRESENTATIVE Unspecified fall, initial encounter ICD-E888.9 Inactive Kylie Yokum INSIDE ACCOUNT REPRESENTATIVE Eye pain, left ICD-379.91 Inactive Kylie Holt AMY Pharyngitis, acute ICD-074.0 Inactive Kavin Yates MD Foot pain, left ICD-729.5 Inactive Kylie Yanet REYES Hypomagnesemia ICD-275.2 Inactive Adam Franklin MD Hypokalemia ICD-276.8 Inactive Adam enamorado MD Enlarged thyroid ICD-240.9 Inactive Adam Yates MD Underweight Inactive LETY Nation 05/17 Follicular adenoma, thyroid ICD-226 Inactive Adam Yates MD Preventive health care, adult ICD-V70.0 Inacti ve Kylie Lundoliver REYES Medication List Medication Instructions Start Date Stop Date Generic Name NDC Status Provider Patient Instruction ASPIR-LOW 81 MG ORAL TABLET DELAYED RELEASE 1 daily ASPIRIN 26426469080 Active Kylie Escalonapari REYES Active SYNTHROID 100 MCG ORAL TABLET Take one tablet 30 minut es before breakfast or other medications for hypothyroidism. LEVOTHYROX INE SODIUM 33673135503 Active Kylie Holt AMY Active VOLTAREN 1 % TRANSDERMAL GEL apply 2 grams q 6-8 hour to left arm as needed for pain DICLOFENAC SODIUM 98304534236 Active Kylie Escalonapari ROMERO N Active IMODIUM A-D 2 MG ORAL TABLET 1 tablet twice a day LOPERAMIDE HCL 29513079672 Active Kylie Escalonapari REYES Active COQ10 100 MG ORAL CAPSULE 1 daily COENZYME Q10 400383 79741 Active Fay Alberts [facility] Active VITAMIN D3 2000 UNIT ORAL CAPSULE Melaleuca-One daily CHOLECALCIFEROL 17287884519 Active Kylie Yokum INSIDE ACCOUNT REPRESENTATIVE Active PROBIOTIC DAILY ORAL CAPSULE Take one daily PROBIO TIC PRODUCT 79846331718 Active Kylie Holt INSIDE ACCOUNT REPRESENTATIVE Active IRON 325 (65 Fe) MG ORAL TABLET 1 every other day FERROUS SULFATE 64023585291 No Longer Active Kylie Holt INSIDE ACCOUNT REPRESENTATIVE Active FLORANEX ORAL PACKET 1 pack three times daily, for bowel health LACTOBACILLUS 33052639871 No Longer Active Kylie Holt INSIDE ACCOUNT REPRESENTATIVE Active LOMOTIL 2.5-0.025 MG ORAL TABLET 1 tab by mouth prn 23/10/23 DIPHENOXYLATE-ATROPINE 76234599592 No Longer Active Kylie Lundum INSIDE ACCOUNT REPRESENTATIVE Active MAGNESIUM GLUCONATE 250 MG ORAL TABLET 1 tab tid 23/10/23 MAGNESIUM GLUCONATE 66791170906 No Longer Active Kylie Lundum INSIDE ACCOUNT REPRESENTATIVE Active CYANOCOBALAMIN 1000 MCG/ML INJECTION SOLUTION 1 injection ev ruben 2 weeks CYANOCOBALAMIN 32173928615 No Longer Active Kylie Lund um INSIDE ACCOUNT REPRESENTATIVE Active ATENOLOL 25 MG ORAL TABLET 1/2 pill by mouth daily, fo r headaches, blood pressure ATENOLOL 29837363007 Active Kylie Holt INSIDE ACCOUNT REPRESENTATIVE Active PROPRANOLOL HCL 80 MG ORAL TABLET 1 tab tue. and thur. PROPRANOLOL HCL 80704617204 No Longer Active Hope Benavidez MD PhD A ctive VITAMIN D3 4000 IU 1 tab 3 times daily VITAMIN D3 4000 IU No Longer Active Hope Benavidez MD PhD Active BACTRIM DS 800-160 MG ORAL TABLET 1 pill by mouth twice claudio y, for UTI SULFAMETHOXAZOLE-TRIMETHOPRIM 62211314306 No Longer Active Hope Benavidez MD PhD Active PROLIA 60 MG/ML SUBCUTANEOUS SOLUTION 1 shot every 6 months for osteoprosis DENOSUMAB 82117535408 Active Hope Benavidez MD PhD Active CALCIUM + D + K 750-500-40 MG-UNT-MCG ORAL TABLET 1 tab by m out twice daily CALCIUM-VITAMIN D-VITAMIN K 90331122815 Active Hope valdez MD PhD Active DAILY VALUE MULTIVITAMIN ORAL TABLET 1 tab by mouth twice daily 201 05/16/14 MULTIPLE VITAMIN 52649516759 Active Hope Benavidez MD PhD Acti ve FISH OIL 306 MG CAPS 1 tab by mouth three times daily OMEGA-3 FATTY ACIDS 58927883511 Active Hope Benavidez MD PhD Active LUTEIN 10 MG ORAL TABLET 1 tab daily LUTEIN 39949289 408 Active Hope Benavidez MD PhD Active TRIAMTERENE-HCTZ 37.5-25 MG ORAL TABLET 1 tab by mouth daily 10/22 TRIAMTERENE-HCTZ 85515990069 Active Kylie Holt INSIDE ACCOUNT REPRESENTATIVE Active CYCLOBENZAPRINE HCL 10 MG ORAL TABLET 1 tablet by mout h three times daily as needed for headaches CYCLOBENZAPRINE HCL 71386827414 No Longer Active Adam Yates MD Active OMEPRAZOLE 20 MG ORAL CAPSULE DELAYED RELEASE 1 tablet by [facility] daily for GERD OMEPRAZOLE 40152459345 No Longer Active Adam Yates MD Active ZOFRAN 8 MG ORAL TABLET 1 tab by mouth every 12 hours prn 4 ONDANSETRON HCL 63637036250 No Longer Active Adam Yates MD Active PHENADOZ 25 MG RECTAL SUPPOSITORY 1 every 4 hrs. PRN 2 PROMETHAZINE HCL 80182717081 No Longer Active Adam Yates MD A ctive POTASSIUM CHLORIDE 20 MEQ ORAL PACKET by mouth twice a day prn 2 POTASSIUM CHLORIDE 97340055226 No Longer Active Adam Carpenter MD Active PROMETHAZINE HCL 25 MG ORAL TABLET 1 Q. 4 hr. PRN PROMETHAZINE HCL 81281839125 No Longer Active Adam Yates MD Active INNOPRAN XL 120 MG ORAL CAPSULE EXTENDED RELEASE 24 HO UR Take one by mouth daily PROPRANOLOL HCL SR BEADS 37273797673 No Longer Active Adam Yates MD Active FLAGYL 500 MG ORAL TABLET 1 pill by mouth three times daily, for diarrhea METRONIDAZOLE 71548209618 No Longer Active Hope landers MD PhD Active DYAZIDE 37.5-25 MG ORAL CAPSULE 1 qd TRIA MTERENE-HCTZ 85245807299 No Longer Active Hope Benavidez MD PhD Active PROZAC 20 MG ORAL CAPSULE 1 q d FLUOXETINE HCL 48954250223 No Longer Active Hope Benavidez MD PhD Active SIMVASTATIN 40 MG ORAL TABLET 1 qd SIMVAS TATIN 05999421647 No Longer Active Adam Yates MD Active MELOXICAM 15 MG ORAL TABLET 1 qd MELOXICAM 90640341632 No Longer Active Adam Yates MD Active EXCEDRIN EXTRA STRENGTH 250-250-65 MG ORAL TABLET 1-[address] N headache [id number] 77247762279 Active Hope Benavidez MD PhD Active FLAGYL 500 MG ORAL TABLET 1 qid METRONIDAZOL E 16392208494 No Longer Active Adam Yates MD Active LEVAQUIN 750 MG ORAL TABLET 1 qd LEVOFLOXAC IN 62686308525 No Longer Active Adam Yates MD Active ADULT ASPIRIN LOW STRENGTH 81 MG ORAL TABLET DISINTEGRATING 1 qd ASPIRIN 84097588553 Active Hope Benavidez MD PhD Active LEVAQUIN 750 MG ORAL TABLET 1 qd LEVAQUIN 750 MG ORAL TABLET 905788 LEVOFLOXACIN Inactive FLAGYL 500 MG ORAL TABLET 1 qid FLAGYL 500 MG ORAL TABLET 967262 METRONIDAZOLE Inactive MELOXICAM 15 MG ORAL TABLET 1 qd MELOXICAM 15 MG ORAL TABLET 649936 MELOXICAM Inactive SIMVASTATIN 40 MG ORAL TABLET 1 qd SIMVASTATIN 40 MG ORAL TABLET 569128 SIMVASTATIN Inactive PROZAC 20 MG ORAL CAPSULE 1 q d PROZAC 20 MG ORAL CAPSULE 937437 FLUOXETINE HCL Inactive DYAZIDE 37.5-25 MG ORAL CAPSULE 1 qd 5 DYAZIDE 37.5-25 MG ORAL CAPSULE 759413 TRIAMTERENE-HCTZ Inactive INNOPRAN XL 120 MG ORAL CAPSULE EXTENDED RELEASE 24 HO UR Take one by mouth daily INNOPRAN XL 120 MG ORAL CAPSULE EXTENDED RELEASE 24 HOUR PROPRANOLOL HCL SR BEADS Inactive PROMETHAZINE HCL 25 MG ORAL TABLET 1 Q. 4 hr. PRN 2013 PROMETHAZINE HCL 25 MG ORAL TABLET 801872 PROMETHAZINE HCL Inactive POTASSIUM CHLORIDE 20 MEQ ORAL PACKET by mouth twice a day prn POTASSIUM CHLORIDE 20 MEQ ORAL PACKET 9240488 POTASSIUM CHLORIDE Inactive PHENADOZ 25 MG RECTAL SUPPOSITORY 1 every 4 hrs. PRN 2 PHENADOZ 25 MG RECTAL SUPPOSITORY 170193 PROMETHAZINE HCL Inactive ZOFRAN 8 MG ORAL TABLET 1 tab by mouth every 12 hours prn 4 ZOFRAN 8 MG ORAL TABLET 712297 ONDANSETRON HCL Inactive OMEPRAZOLE 20 MG ORAL CAPSULE DELAYED RELEASE 1 tablet by mo uth daily for GERD OMEPRAZOLE 20 MG ORAL CAPSULE DELAYED RELEASE 19 8051 OMEPRAZOLE Inactive CYCLOBENZAPRINE HCL 10 MG ORAL TABLET 1 tablet by mout h three times daily as needed for headaches CYCLOBENZAPRINE HCL 10 MG ORAL TABLET 291852 CYCLOBENZAPRINE HCL Inactive VITAMIN D3 4000 IU 1 tab 3 times daily VITAMIN D3 4000 IU Inactive PROPRANOLOL HCL 80 MG ORAL TABLET 1 tab tue. and thur. PROPRANOLOL HCL 80 MG ORAL TABLET 161879 PROPRANOLOL HCL Inacti ve CYANOCOBALAMIN 1000 MCG/ML INJECTION SOLUTION 1 injection ev ruben 2 weeks CYANOCOBALAMIN 1000 MCG/ML INJECTION SOLUTION 30 9594 CYANOCOBALAMIN Inactive MAGNESIUM GLUCONATE 250 MG ORAL TABLET 1 tab tid 23/10/23 MAGNESIUM GLUCONATE 250 MG ORAL TABLET 402181 MAGNESIUM GLUCONATE Inactive LOMOTIL 2.5-0.025 MG ORAL TABLET 1 tab by mouth prn 20 23/10/23 LOMOTIL 2.5-0.025 MG ORAL TABLET 0178063 DIPHENOXYLATE-ATROPINE Inac tive FLORANEX ORAL PACKET 1 pack three times daily, for bowel health FLORANEX ORAL PACKET 31256859392 LACTOBACILLUS Inactive IRON 325 (65 Fe) MG ORAL TABLET 1 every other day 2015 IRON 325 (65 Fe) MG ORAL TABLET 262838 FERROUS SULFATE Inactive FLAGYL 500 MG ORAL TABLET 1 pill by mouth three times daily, for diarrhea FLAGYL 500 MG ORAL TABLET 542816 METRONIDAZOLE I nactive BACTRIM DS 800-160 MG ORAL TABLET 1 pill by mouth twice claudio y, for UTI BACTRIM DS 800-160 MG ORAL TABLET 846432 SULFAMETHOXAZOLE-TRIMETHOPRIM Inactive Advance Directives Directive Description Start [...] purified protein derivative), intra dermal administration Tubersol dT (Diphtheria and Tetanus) booster given given Td(adult) unspecified formulation pneumococcal immunization administered given pneumococcal polysaccharide vaccine, 23 valent Vital Signs Date Name Value Unit Range [...] ... - Chemistry cholesterol, serum 211 mg/dL 189-113 8903/01/10 triglyceride, serum, fasting 77 mg/dL 30-200 HDL cholesterol, serum 70 mg/dL 32-60 LDL cholesterol, serum 126 mg/dL 0-130 TSH 1.19 m[iU]/mL 0.36-3.74 sodium, serum 141 mmol/L 546-860 4826/01/10 potassium, serum 3.7 mmol/L 3.5-5.2 chloride, serum [...] ... - Chemistry sodium, serum 142 mmol/L 115-091 0437/04/16 carbon dioxide, venous blood 30.0 mmol/L 21.0-32 [...] 50-136 Lab Report: Free Thyroxine (L) - [employer] ry thyroxine, serum, free 0.82 ng/dL 0.59-1.17 Lab Report: Thyroid Stimulating Hormone (L), Free Thyroxine (L) - Chemistry TSH 13.85 m[iU]/mL 0.36-3.74 thyroxine, serum, free 0.65 ng/dL 0.59-1.17 TSH 13.59 m[iU]/mL 0.36-3.74 thyroxine, serum, free 0.47 ng/dL 0.59-1.17 Encounters Code Encounter Date Provider Facility CPT-65728 [id number] Vst-Est Level III 12:20:52 [facility] [id number] Vst-Est Level III 09:15:19 [facility] Level 4 Est. Patient 15:35:24 LACTATION NURSE Adam Yates MD [facility] CPT-16351 Level 3 New Patient 12:08:54 LACTATION NURSE Adam Yates MD [facility] CPT-79815 [id number] Vst-Est Level IV 19:48:30 LACTATION NURSE Tracy Holt [facility] [place] CPT-04606 [id number] Vst-Est Level III 14:29:19 CDT [facility] [place] CPT-38106 Level 2 Est. Patient 14:58:26 CDT [facility] Level 3 Est. Patient 08:15:24 LACTATION NURSE Kylie boyd [facility] CPT-55070 Level 2 Est. Patient 14:27:16 LACTATION NURSE Kylie boyd [facility] CPT-51291 Level 3 Est. Patient 17:54:48 CDT Kylie boyd [facility] CPT-05650 Level 3 Est. Patient 16:26:30 CDT Kina blackmon [facility] CPT-31211 Level 3 New Patient 16:22:01 LACTATION NURSE Adam Yates MD [facility] CPT-28099 Level 4 Est. Patient 17:00:48 CDT Kylie Lund [facility] CPT-53868 Level 3 Est. Patient 13:15:54 CDT Kylie Lund [facility] CPT-17980 Level 3 Est. Patient 09:10:11 CDT Kylie Lund [facility] CPT-00081 Level 4 Est. Patient 12:08:30 LACTATION NURSE Hope cohn MD [facility] CPT-54420 Level 4 Est. Patient 19:08:42 LACTATION NURSE Hope cohn MD PhD [facility] CPT-73089 Level 4 Est. Patient 20:04:51 CDT Hope cohn MD PhD [facility] CPT-83615 Level 3 New Patient 01:46:11 LACTATION NURSE Hope landers MD PhD [facility] Procedures Code Procedure Name Date Entry Date Standard Desc ription [id number]-[id number] (4274F) Influenza immunization administe red or previously received 12:20:52 LACTATION NURSE CPT-G0008 Administration of Influenza Virus Vaccine 15:08:32 CDT CPT-73221 Flublok Quadrivalent (Flu) Syringe IM(Me dicare) 15:08:32 CDT CPT-15720 Venipuncture Draw Fee 10:06:15 CDT CPT-09001 Bone Density - XRAY USE ONLY 11:51:35 CDT 2 CPT-64962 Free T4 - LAB USE ONLY 11:44:37 CDT CPT-09291 TSH - LAB USE ONLY 11:44:37 CDT CPT-93775 Venipuncture Draw Fee 11:44:37 CDT CPT-J0897 Prolia 60 mg 10:36:55 CDT CPT-88362 Abx/Therapy Injection 10:36:55 CDT CPT-69807 Venipuncture Draw Fee 13:34:11 CDT CPT-G0439 Subsequent Annual Wellness Exam 09:15:19 CDT CPT-55565 Postop F/U Visit 15:45:41 CDT CPT-96391 Sono Soft Tissue Head and Neck - XRAY US E ONLY 11:56:06 LACTATION NURSE CPT-61255 Abx/Therapy Injection 09:40:08 LACTATION NURSE CPT-J0897 Prolia 60 mg 09:40:08 LACTATION NURSE CPT-63969 First Vx - Ix admin for Medicare patients 02/08 10:02:45 CDT CPT-76675 Fluzone Quadrivalent Intramuscular Suspe nsion 0.5 ML 10:02:45 CDT CPT-30171 Magnesium - LAB USE ONLY 09:41:00 CDT 12/09 CPT-04725 Renal Panel - LAB USE ONLY 09:41:00 CDT 201 09/17/01 CPT-75104 Venipuncture Draw Fee 09:41:00 CDT CPT-81973 Calcium - LAB USE ONLY 17:25:11 CDT CPT-J0897 Prolia 60 mg 15:10:59 CDT CPT-17216 Abx/Therapy Injection 15:10:59 CDT CPT-G0439 [facility] Annual Wellness Exam 14:29:19 CDT CPT-32247 Venipuncture Draw Fee 10:59:04 CDT CPT-15706 CMP - LAB USE ONLY 10:59:04 CDT CPT-05154 CBC with Diff - LAB USE ONLY 10:59:03 CDT 2 CPT-J0897 Prolia 60 mg 15:46:54 LACTATION NURSE CPT-78598 Abx/Therapy Injection 15:46:54 LACTATION NURSE CPT-86809 Microalbumin - LAB USE ONLY 09:41:32 LACTATION NURSE 20 23/01/15 CPT-21612 Free T4 - LAB USE ONLY 09:41:32 LACTATION NURSE CPT-51358 TSH - LAB USE ONLY 09:41:32 LACTATION NURSE CPT-09581 BMP - LAB USE ONLY 09:41:32 LACTATION NURSE CPT-58097 Venipuncture Draw Fee 09:41:32 LACTATION NURSE CPT-22740 First Vx - Ix admin for Medicare patients 11:19:30 CDT CPT-62631 Fluzone High-Dose Intramuscular Suspension 12/07 11:19:30 CDT CPT-J0897 Prolia 60 mg 14:55:42 CDT CPT-18436 Abx/Therapy Injection 14:55:42 CDT CPT-64111 Bone Density - XRAY USE ONLY 10:27:12 CDT 2 CPT-G0439 Subsequent Annual Wellness Exam 17:54:53 CDT CPT-52603 Foot, left, comp min 3V - XRAY USE ONLY 12:22:49 CDT CPT-G0009 Administration of Pneumococcal Vaccine 3 12:18:00 CDT CPT-56651 Pneumovax 23 Injection Injectable 25 MCG /0.5ML 12:18:00 CDT CPT-J0897 Prolia 60 mg 14:14:16 LACTATION NURSE CPT-91178 Abx/Therapy Injection 14:14:15 LACTATION NURSE CPT-70902 Lipid - LAB USE ONLY 10:01:52 LACTATION NURSE 2 CPT-66755 Calcium - LAB USE ONLY 10:01:51 LACTATION NURSE CPT-08132 Venipuncture Draw Fee 10:01:51 LACTATION NURSE CPT-LR Lesion Removal 16:22:01 LACTATION NURSE CPT-77377 TSH - LAB USE ONLY 14:26:02 CDT CPT-41030 CMP - LAB USE ONLY 14:26:01 CDT CPT-66594 CBC with Diff - LAB USE ONLY 14:26:01 CDT 2 CPT-88838 Venipuncture Draw Fee 14:26:01 CDT CPT-59611 First Vx - Ix admin for Medicare patients 13:27:08 CDT CPT-38708 Fluzone High-Dose Intramuscular Suspension 11/26 13:27:08 CDT CPT-G0438 Initial Annual Wellness Exam 14:19:57 CD T CPT-G0009 Administration of Pneumococcal Vaccine 9 11:36:25 CDT CPT-67096 Prevnar 13 Intramuscular Suspension 1 1:36:25 CDT CPT-97743 Prevnar 13 Intramuscular Suspension 1 0:40:58 CDT CPT-J0897 Prolia 60 mg 10:37:16 CDT CPT-18064 Abx/Therapy Injection 10:37:16 CDT CPT-J0897 Prolia 60 mg 16:09:34 LACTATION NURSE CPT-J0897 Prolia 60 mg 11:10:35 LACTATION NURSE CPT-87283 Abx/Therapy Injection 11:10:35 LACTATION NURSE CPT-000 Give Appropriate Flu Vaccine 17:01:15 LACTATION NURSE 2 CPT-89777 Fluzone High Dose (65+) 15:03:08 LACTATION NURSE 02/15 CPT-53215 Immunization Single Admin 15:03:08 LACTATION NURSE 2014 CPT-OV Office Visit 15:58:06 CDT CPT-J0897 Prolia 60 mg 08:45:38 CDT CPT-37691 Abx/Therapy Injection 08:45:38 CDT CPT-J3420 Vitamin B12 1000mcg (Cyanocobalamin) 09:26:20 LACTATION NURSE CPT-17969 Abx/Therapy Injection 09:26:20 LACTATION NURSE CPT-J3420 Vitamin B12 1000mcg (Cyanocobalamin) 09:44:40 LACTATION NURSE CPT-50728 Abx/Therapy Injection 09:44:40 LACTATION NURSE CPT-J3420 Vitamin B12 1000mcg (Cyanocobalamin) 09:15:54 LACTATION NURSE CPT-66844 Abx/Therapy Injection 09:15:54 LACTATION NURSE CPT-J3420 Vitamin B12 1000mcg (Cyanocobalamin) 09:46:44 LACTATION NURSE CPT-35409 Abx/Therapy Injection 09:46:44 LACTATION NURSE CPT-J3420 Vitamin B12 1000mcg (Cyanocobalamin) 09:47:34 LACTATION NURSE CPT-20327 Abx/Therapy Injection 09:47:34 LACTATION NURSE CPT-J3420 Vitamin B12 1000mcg (Cyanocobalamin) 14:35:50 LACTATION NURSE CPT-J3420 Vitamin B12 1000mcg (Cyanocobalamin) 09:25:05 LACTATION NURSE CPT-10926 Abx/Therapy Injection 09:25:05 LACTATION NURSE CPT-G0008 Administration of Influenza Virus Vaccine 13:36:47 CDT CPT-23378 Fluzone High-Dose Intramuscular Suspension 11/15 13:36:47 CDT CPT-J0897 Prolia 60 mg 08:50:41 CDT CPT-35161 Abx/Therapy Injection 08:50:41 CDT CPT-68372 Bone Density 12:06:12 CDT CPT-07457 Bone Density 08:54:40 CDT CPT-OV Office Visit 15:37:02 CDT CPT-46045 Postop F/U Visit 15:47:49 CDT CPT-20632 Postop F/U Visit 15:21:02 CDT CPT-TCM Transitional Care Mgmt-High 07:52:27 CDT 20 20/06/01 CPT-50564 Venipuncture Draw Fee 13:51:18 CDT CPT-92029 Venipuncture Draw Fee 10:14:55 LACTATION NURSE CPT-61488 Venipuncture Draw Fee 13:39:45 LACTATION NURSE CPT-OV Office Visit 15:11:22 LACTATION NURSE CPT-21907 Venipuncture Draw Fee 09:20:49 LACTATION NURSE CPT-35271 Venipuncture Draw Fee 16:52:15 LACTATION NURSE CPT-65351 Venipuncture Draw Fee 10:37:24 LACTATION NURSE CPT-60682 Venipuncture Draw Fee 08:21:21 LACTATION NURSE CPT-59785 Venipuncture Draw Fee 08:30:20 LACTATION NURSE CPT-59934 Venipuncture Draw Fee 14:53:21 LACTATION NURSE CPT-65097 Venipuncture Draw Fee 09:40:56 LACTATION NURSE CPT-89512 Venipuncture Draw Fee 10:30:47 LACTATION NURSE CPT-27727 Venipuncture Draw Fee 10:46:17 LACTATION NURSE CPT-54869 Venipuncture Draw Fee 11:12:45 LACTATION NURSE CPT-65046 Venipuncture Draw Fee 09:53:33 LACTATION NURSE CPT-20229 Venipuncture Draw Fee 11:53:51 LACTATION NURSE CPT-28415 Venipuncture Draw Fee 10:33:50 LACTATION NURSE CPT-06198 Venipuncture Draw Fee 10:05:01 LACTATION NURSE CPT-77866 Venipuncture Draw Fee 14:32:52 LACTATION NURSE CPT-80515 Venipuncture Draw Fee 09:46:13 LACTATION NURSE CPT-30715 Venipuncture Draw Fee 11:34:27 LACTATION NURSE CPT-56369 Venipuncture Draw Fee 13:17:16 LACTATION NURSE CPT-90957 Venipuncture Draw Fee 12:05:39 CDT CPT-26199 Venipuncture Draw Fee 12:49:12 CDT CPT-79932 Venipuncture Draw Fee 12:37:18 CDT CPT-70081 Venipuncture Draw Fee 10:57:11 CDT CPT-65622 Venipuncture Draw Fee 13:47:40 CDT CPT-23399 Venipuncture Draw Fee 10:02:17 CDT CPT-66077 TB Tubersol 17:32:32 CDT CPT-OV Office Visit 16:21:53 CDT CPT-OV Office Visit 15:49:22 CDT CPT-OV Office Visit 17:16:31 CDT CPT-OV Office Visit 10:43:31 CDT
--- OUTSIDE RECORDS SUMMARY | 2019-02-09 11:35 | XMS REPORT | Clinical Summary ---
Author Author Renaldo, Florecita Munoz Organization [facility] [employer] Address Unknown Phone Unavailable Allergies, Adverse Reactions, [...] PhD Hyperpotassemia GERD 530.81 Resolved Kylie Yokum [employer] Esophageal reflux Health maintenance exam V70.0 Resolved Adolfo Yates MD Routine general medical examination at a health care facility Anemia 285.9 Resolved Kylie Yanet [employer] Anemia, unspecified Personal history of malignant neoplasm of large intestine V10.05 Active Adam Yates MD Personal history of malignant neoplasm of large intestine Hypomagnesemia 275.2 Resolved Kylie Yanet [employer] Disorders of magnesium metabolism Weakness 780.79 Resolved [...] Sebaceous cyst, scalp 706.2 Resolved Kylie Yokum [employer] Sebaceous cyst Cervical lymphadenopathy, anterior, left 785.6 Resolv ed Kylie Yokum [employer] Enlargement of lymph nodes Need for prophylactic vaccination and inoculation against in fluenza V04.81 Resolved Adam Yates MD Need for prophylactic vaccination and inoculation against influenza Preventive health care V70.0 Resolved Kylie Lundu m [employer] Routine general medical examination at a health care facility Thyroid nodule, left 241.0 Resolved Selena Yates MD Nontoxic uninodular goiter Screening mammogram V76.12 Resolved Kylie Yokum A PRN Other screening mammogram Mandy 706.2 Resolved Kylie Yokum [employer] Sebaceous cyst Colon cancer, ascending 153.6 Resolved Kylie Yok um [employer] Malignant neoplasm of ascending colon Foot pain, left 729.5 Resolved Kylie Yokum [employer] Pain in limb Splinter 919.6 Resolved Kylie Yokum [employer] Superficial foreign body (splinter) of other, multiple, and unspecified sites, without major open wound and without mention of infection Rash 782.1 Resolved Kylie Yokum [employer] Rash and other nonspecific skin eruption Cyst 706.2 Resolved Kylie Yokum [employer] Sebaceous cyst Body Mass Index 23.0-23.9 Adult Refinement 2017 Kylie Yokum [employer] Body Mass Index between 19-24, adult BMI [...] Preoperative examination V72.84 Active Kylie Yok um [employer] Preoperative examination, unspecified ABDOMINAL PAIN, RIGHT LOWER QUADRANT ICD-789.03 Inactive Kina Joshua [employer] ADENOCARCINOMA, COLON, 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 Dick Yates MD ABDOMINAL PAIN, GENERALIZED ICD-789.07 Inactive Hope Benavidez MD PhD FEVER UNSPECIFIED ICD-780.60 Inactive Hope cohn MD PhD UNSPECIFIED VENOUS INSUFFICIENCY ICD-459.81 [place] ctive Adam Yates MD ADENOCARCINOMA, 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 Inac tive Hope Benavidez MD PhD Hyperkalemia ICD-276.7 Inactive Hope Benavidez MD PhD GERD ICD-530.81 Inactive Kylie Holt [employer] 2015 Health maintenance exam ICD-V70.0 Bam Yates MD Anemia ICD-285.9 Inactive Kylie Holt [employer] 07/24 Hypomagnesemia ICD-275.2 Inactive Kylie Holt [employer] Weakness ICD-780.79 Inactive Hope Benavidez MD P [...] cyst, scalp ICD-706.2 Inactive Tracy hi Yokum [employer] Cervical lymphadenopathy, anterior, left ICD-785.6 Inactive Kylie Yokum [employer] Need for prophylactic vaccination and inoculation against in fluenza ICD-V04.81 Inactive Adam Yates MD Preventive health care ICD-V70.0 Inactive Ka thi Yokum [employer] Thyroid nodule, left ICD-241.0 Inactive Selena Yates MD Screening mammogram ICD-V76.12 Inactive Kylie Yokum [employer] Mandy ICD-706.2 Inactive Kylie Yokum [employer] 07/20 Colon cancer, ascending ICD-153.6 Inactive K athi Yokum [employer] Foot pain, left ICD-729.5 Inactive Kylie Yokum [employer] Splinter ICD-919.6 Inactive Kylie Yokum [employer] 2017 Rash ICD-782.1 Inactive Kylie Yokum [employer] 07/25 Cyst ICD-706.2 Inactive Kylie Yokum [employer] 08/11 Unspecified fall, initial encounter ICD-E888.9 Inactive [...] ORAL TABLET DELAYED RELEASE 1 daily ASPIRIN 87291785767 Active Kylie Holt AMY Active SYNTHROID 100 MCG ORAL TABLET Take one tablet 30 minut es before breakfast or other medications for hypothyroidism. LEVOTHYROX INE SODIUM 85993908439 Active Kylie Holt AMY Active VOLTAREN 1 % TRANSDERMAL GEL apply 2 grams q 6-8 hour to left arm as needed for pain DICLOFENAC SODIUM 84395629647 Active Kylie Lundoliver ROMERO N Active IMODIUM A-D 2 MG ORAL TABLET 1 tablet twice a day LOPERAMIDE HCL 56886605291 Active Kylie Holt AMY Active COQ10 100 MG ORAL CAPSULE 1 daily COENZYME Q10 264413 95935 Active Fay Alberts [facility] Active VITAMIN D3 2000 UNIT ORAL CAPSULE Melaleuca-One daily CHOLECALCIFEROL 16226266150 Active Kylie Yokum [employer] Active PROBIOTIC DAILY ORAL CAPSULE Take one daily PROBIO TIC PRODUCT 38321354984 Active Kylie Holt [employer] Active IRON 325 (65 Fe) MG ORAL TABLET 1 every other day FERROUS SULFATE 30331411581 No Longer Active Kylie Holt [employer] Active FLORANEX ORAL PACKET 1 pack three times daily, for bowel health LACTOBACILLUS 79504046850 No Longer Active Kylie Holt [employer] Active LOMOTIL 2.5-0.025 MG ORAL TABLET 1 tab by mouth prn 23/10/23 DIPHENOXYLATE-ATROPINE 33721872368 No Longer Active Kylie Lundum [employer] Active MAGNESIUM GLUCONATE 250 MG ORAL TABLET 1 tab tid 23/10/23 MAGNESIUM GLUCONATE 70927635979 No Longer Active Kylie Lundum [employer] Active CYANOCOBALAMIN 1000 MCG/ML INJECTION SOLUTION 1 injection ev ruben 2 weeks CYANOCOBALAMIN 14614290601 No Longer Active Kylie Lund um [employer] Active ATENOLOL 25 MG ORAL TABLET 1/2 pill by mouth daily, fo r headaches, blood pressure ATENOLOL 06838099183 Active Kylie Holt [employer] Active PROPRANOLOL HCL 80 MG ORAL TABLET 1 tab tue. and thur. PROPRANOLOL HCL 49033933122 No Longer Active Hope Benavidez MD PhD A ctive VITAMIN D3 4000 IU 1 tab 3 times daily VITAMIN D3 4000 IU No Longer Active Hope Benavidez MD PhD Active BACTRIM DS 800-160 MG ORAL TABLET 1 pill by mouth twice claudio y, for UTI SULFAMETHOXAZOLE-TRIMETHOPRIM 19743684451 No Longer Active Hope Benavidez MD PhD Active PROLIA 60 MG/ML SUBCUTANEOUS SOLUTION 1 shot every 6 months for osteoprosis DENOSUMAB 72954232034 Active Hope Benavidez MD PhD Active CALCIUM + D + K 750-500-40 MG-UNT-MCG ORAL TABLET 1 tab by m out twice daily CALCIUM-VITAMIN D-VITAMIN K 45812673953 Active Hope valdez MD PhD Active DAILY VALUE MULTIVITAMIN ORAL TABLET 1 tab by mouth twice daily 201 05/16/14 MULTIPLE VITAMIN 60032788303 Active Hope Benavidez MD PhD Acti ve FISH OIL 306 MG CAPS 1 tab by mouth three times daily OMEGA-3 FATTY ACIDS 66747690844 Active Hope Benavidez MD PhD Active LUTEIN 10 MG ORAL TABLET 1 tab daily LUTEIN 81096870 408 Active Hope Benavidez MD PhD Active TRIAMTERENE-HCTZ 37.5-25 MG ORAL TABLET 1 tab by mouth daily 10/22 TRIAMTERENE-HCTZ 85127543996 Active Kylie Holt [employer] Active CYCLOBENZAPRINE HCL 10 MG ORAL TABLET 1 tablet by mout h three times daily as needed for headaches CYCLOBENZAPRINE HCL 37676873100 No Longer Active Adam Yates MD Active OMEPRAZOLE 20 MG ORAL CAPSULE DELAYED RELEASE 1 tablet by [facility] daily for GERD OMEPRAZOLE 57190782413 No Longer Active Adam Yates MD Active ZOFRAN 8 MG ORAL TABLET 1 tab by mouth every 12 hours prn 4 ONDANSETRON HCL 24874309126 No Longer Active Adam Yates MD Active PHENADOZ 25 MG RECTAL SUPPOSITORY 1 every 4 hrs. PRN 2 PROMETHAZINE HCL 39514428438 No Longer Active Adam Yates MD A ctive POTASSIUM CHLORIDE 20 MEQ ORAL PACKET by mouth twice a day prn 2 POTASSIUM CHLORIDE 89168544555 No Longer Active Adam Carpenter MD Active PROMETHAZINE HCL 25 MG ORAL TABLET 1 Q. 4 hr. PRN PROMETHAZINE HCL 38463655367 No Longer Active Adam Yates MD Active INNOPRAN XL 120 MG ORAL CAPSULE EXTENDED RELEASE 24 HO UR Take one by mouth daily PROPRANOLOL HCL SR BEADS 91979842148 No Longer Active Adam Yates MD Active FLAGYL 500 MG ORAL TABLET 1 pill by mouth three times daily, for diarrhea METRONIDAZOLE 25121000644 No Longer Active Hope landers MD PhD Active DYAZIDE 37.5-25 MG ORAL CAPSULE 1 qd TRIA MTERENE-HCTZ 29813451893 No Longer Active Hope Benavidez MD PhD Active PROZAC 20 MG ORAL CAPSULE 1 q d FLUOXETINE HCL 56505585737 No Longer Active Hope Benavidez MD PhD Active SIMVASTATIN 40 MG ORAL TABLET 1 qd SIMVAS TATIN 73778958926 No Longer Active Adam Yates MD Active MELOXICAM 15 MG ORAL TABLET 1 qd MELOXICAM 78752024023 No Longer Active Adam Yates MD Active EXCEDRIN EXTRA STRENGTH 250-250-65 MG ORAL TABLET 1-2 q6h MT N headache [id number] 19633205443 Active Hope Benavidez MD PhD Active FLAGYL 500 MG ORAL TABLET 1 qid METRONIDAZOL E 61373644121 No Longer Active Adam Yates MD Active LEVAQUIN 750 MG ORAL TABLET 1 qd LEVOFLOXAC IN 13947871043 No Longer Active Adam Yates MD Active ADULT ASPIRIN LOW STRENGTH 81 MG ORAL TABLET DISINTEGRATING 1 qd ASPIRIN 85985096740 Active Hope Benavidez MD PhD Active LEVAQUIN 750 MG ORAL TABLET 1 qd LEVAQUIN 750 MG ORAL TABLET 788926 LEVOFLOXACIN Inactive FLAGYL 500 MG ORAL TABLET 1 qid FLAGYL 500 MG ORAL TABLET 435536 METRONIDAZOLE Inactive MELOXICAM 15 MG ORAL TABLET 1 qd MELOXICAM 15 MG ORAL TABLET 263309 MELOXICAM Inactive SIMVASTATIN 40 MG ORAL TABLET 1 qd SIMVASTATIN 40 MG ORAL TABLET 479077 SIMVASTATIN Inactive PROZAC 20 MG ORAL CAPSULE 1 q d PROZAC 20 MG ORAL CAPSULE 858439 FLUOXETINE HCL Inactive DYAZIDE 37.5-25 MG ORAL CAPSULE 1 qd 5 DYAZIDE 37.5-25 MG ORAL CAPSULE 349068 TRIAMTERENE-HCTZ Inactive INNOPRAN XL 120 MG ORAL CAPSULE EXTENDED RELEASE 24 HO UR Take one by mouth daily INNOPRAN XL 120 MG ORAL CAPSULE EXTENDED RELEASE 24 HOUR PROPRANOLOL HCL SR BEADS Inactive PROMETHAZINE HCL 25 MG ORAL TABLET 1 Q. 4 hr. PRN 2013 PROMETHAZINE HCL 25 MG ORAL TABLET 374284 PROMETHAZINE HCL Inactive POTASSIUM CHLORIDE 20 MEQ ORAL PACKET by mouth twice a day prn POTASSIUM CHLORIDE 20 MEQ ORAL PACKET 8439241 POTASSIUM CHLORIDE Inactive PHENADOZ 25 MG RECTAL SUPPOSITORY 1 every 4 hrs. PRN 2 PHENADOZ 25 MG RECTAL SUPPOSITORY 397155 PROMETHAZINE HCL Inactive ZOFRAN 8 MG ORAL TABLET 1 tab by mouth every 12 hours prn 4 ZOFRAN 8 MG ORAL TABLET 582132 ONDANSETRON HCL Inactive OMEPRAZOLE 20 MG ORAL CAPSULE DELAYED RELEASE 1 tablet by mo uth daily for GERD OMEPRAZOLE 20 MG ORAL CAPSULE DELAYED RELEASE 19 8051 OMEPRAZOLE Inactive CYCLOBENZAPRINE HCL 10 MG ORAL TABLET 1 tablet by mout h three times daily as needed for headaches CYCLOBENZAPRINE HCL 10 MG ORAL TABLET 089328 CYCLOBENZAPRINE HCL Inactive VITAMIN D3 4000 IU 1 tab 3 times daily VITAMIN D3 4000 IU Inactive PROPRANOLOL HCL 80 MG ORAL TABLET 1 tab tue. and thur. PROPRANOLOL HCL 80 MG ORAL TABLET 562045 PROPRANOLOL HCL Inacti ve CYANOCOBALAMIN 1000 MCG/ML INJECTION SOLUTION 1 injection ev ruben 2 weeks CYANOCOBALAMIN 1000 MCG/ML INJECTION SOLUTION 30 9594 CYANOCOBALAMIN Inactive MAGNESIUM GLUCONATE 250 MG ORAL TABLET 1 tab tid 23/10/23 MAGNESIUM GLUCONATE 250 MG ORAL TABLET 726044 MAGNESIUM GLUCONATE Inactive LOMOTIL 2.5-0.025 MG ORAL TABLET 1 tab by mouth prn 20 23/10/23 LOMOTIL 2.5-0.025 MG ORAL TABLET 4304563 DIPHENOXYLATE-ATROPINE Inac tive FLORANEX ORAL PACKET 1 pack three times daily, for bowel health FLORANEX ORAL PACKET 99637959339 LACTOBACILLUS Inactive IRON 325 (65 Fe) MG ORAL TABLET 1 every other day 2015 IRON 325 (65 Fe) MG ORAL TABLET 320383 FERROUS SULFATE Inactive FLAGYL 500 MG ORAL TABLET 1 pill by mouth three times daily, for diarrhea FLAGYL 500 MG ORAL TABLET 733191 METRONIDAZOLE I nactive BACTRIM DS 800-160 MG ORAL TABLET 1 pill by mouth twice claudio y, for UTI BACTRIM DS 800-160 MG ORAL TABLET 460767 SULFAMETHOXAZOLE-TRIMETHOPRIM Inactive Advance Directives Directive Description Start [...] ... - Chemistry cholesterol, serum 211 mg/dL 222-041 0394/01/10 triglyceride, serum, fasting 77 mg/dL 30-200 HDL cholesterol, serum 70 mg/dL 32-60 LDL cholesterol, serum 126 mg/dL 0-130 TSH 1.19 m[iU]/mL 0.36-3.74 sodium, serum 141 mmol/L 076-413 5020/01/10 potassium, serum 3.7 mmol/L 3.5-5.2 chloride, serum [...] ... - Chemistry sodium, serum 142 mmol/L 199-669 6639/04/16 carbon dioxide, venous blood 30.0 mmol/L 21.0-32 [...] 50-136 Lab Report: Free Thyroxine (L) - Board Runner ry thyroxine, serum, free 0.82 ng/dL 0.59-1.17 Lab Report: Thyroid Stimulating Hormone (L), Free Thyroxine (L) - Chemistry TSH 13.85 m[iU]/mL 0.36-3.74 thyroxine, serum, free 0.65 ng/dL 0.59-1.17 TSH 13.59 m[iU]/mL 0.36-3.74 thyroxine, serum, free 0.47 ng/dL 0.59-1.17 Encounters Code Encounter Date Provider Facility CPT-26845 [id number] Vst-Est Level III 12:20:52 COMMUNICATION ANALYST [facility] [place] CPT-78634 [id number] Vst-Est Level III 09:15:19 CDT [facility] [place] C[facility]68 Level 4 Est. Patient 15:35:24 COMMUNICATION ANALYST Adam Yates MD [facility] CPT-43543 Level 3 New Patient 12:08:54 COMMUNICATION ANALYST Adam Yates MD [facility] CPT-74999 33490-Ofh Vst-Est Level IV 19:48:30 COMMUNICATION ANALYST Tracy Holt [facility] [place] CPT-23551 [id number] Vst-Est Level III 14:29:19 CDT [facility] [place] CPT-31373 Level 2 Est. Patient 14:58:26 CDT [facility]17 Level 3 Est. Patient 08:15:24 COMMUNICATION ANALYST Kylie boyd [facility] CPT-34959 Level 2 Est. Patient 14:27:16 COMMUNICATION ANALYST Kylie boyd [facility] CPT-33965 Level 3 Est. Patient 17:54:48 CDT Kylie obyd [facility] CPT-35440 Level 3 Est. Patient 16:26:30 CDT Kina blackmon [facility] CPT-41163 Level 3 New Patient 16:22:01 COMMUNICATION ANALYST Adam Yates MD [facility] CPT-58845 Level 4 Est. Patient 17:00:48 CDT Kylie Lund [facility] CPT-45940 Level 3 Est. Patient 13:15:54 CDT Kylie Lund [facility] CPT-89965 Level 3 Est. Patient 09:10:11 CDT Kylie Lund [facility] CPT-43936 Level 4 Est. Patient 12:08:30 COMMUNICATION ANALYST Hope cohn MD [facility] CPT-95344 Level 4 Est. Patient 19:08:42 COMMUNICATION ANALYST Hope cohn MD PhD [facility] CPT-20782 Level 4 Est. Patient 20:04:51 CDT Hope cohn MD PhD [facility] CPT-53343 Level 3 New Patient 01:46:11 COMMUNICATION ANALYST Hope landers MD PhD [facility] Procedures Code Procedure Name Date Entry Date Standard Desc ription CPT-[id number] (4274F) Influenza immunization administe red or previously received 12:20:52 COMMUNICATION ANALYST CPT-G0008 Administration of Influenza Virus Vaccine 15:08:32 CDT CPT-88331 Flublok Quadrivalent (Flu) Syringe IM(Me dicare) 15:08:32 CDT CPT-35879 Venipuncture Draw Fee 10:06:15 CDT CPT-45115 Bone Density - XRAY USE ONLY 11:51:35 CDT 2 CPT-37473 Free T4 - LAB USE ONLY 11:44:37 CDT CPT-36543 TSH - LAB USE ONLY 11:44:37 CDT CPT-19574 Venipuncture Draw Fee 11:44:37 CDT CPT-J0897 Prolia 60 mg 10:36:55 CDT CPT-28683 Abx/Therapy Injection 10:36:55 CDT CPT-16465 Venipuncture Draw Fee 13:34:11 CDT CPT-G0439 Subsequent Annual Wellness Exam 09:15:19 CDT CPT-98217 Postop F/U Visit 15:45:41 CDT CPT-21501 Sono Soft Tissue Head and Neck - XRAY US E ONLY 11:56:06 COMMUNICATION ANALYST CPT-05261 Abx/Therapy Injection 09:40:08 COMMUNICATION ANALYST CPT-J0897 Prolia 60 mg 09:40:08 COMMUNICATION ANALYST CPT-47684 First Vx - Ix admin for Medicare patients 02/08 10:02:45 CDT CPT-86887 Fluzone Quadrivalent Intramuscular Suspe nsion 0.5 ML 10:02:45 CDT CPT-21308 Magnesium - LAB USE ONLY 09:41:00 CDT 12/09 CPT-52338 Renal Panel - LAB USE ONLY 09:41:00 CDT 201 09/17/01 CPT-53503 Venipuncture Draw Fee 09:41:00 CDT CPT-63930 Calcium - LAB USE ONLY 17:25:11 CDT CPT-J0897 Prolia 60 mg 15:10:59 CDT CPT-62480 Abx/Therapy Injection 15:10:59 CDT CPT-G0439 [facility] Annual Wellness Exam 14:29:19 CDT CPT-46578 Venipuncture Draw Fee 10:59:04 CDT CPT-50316 CMP - LAB USE ONLY 10:59:04 CDT CPT-86356 CBC with Diff - LAB USE ONLY 10:59:03 CDT 2 CPT-J0897 Prolia 60 mg 15:46:54 COMMUNICATION ANALYST CPT-95250 Abx/Therapy Injection 15:46:54 COMMUNICATION ANALYST CPT-26585 Microalbumin - LAB USE ONLY 09:41:32 COMMUNICATION ANALYST 20 23/01/15 CPT-67049 Free T4 - LAB USE ONLY 09:41:32 COMMUNICATION ANALYST CPT-58387 TSH - LAB USE ONLY 09:41:32 COMMUNICATION ANALYST CPT-17522 BMP - LAB USE ONLY 09:41:32 COMMUNICATION ANALYST CPT-44134 Venipuncture Draw Fee 09:41:32 COMMUNICATION ANALYST CPT-50353 First Vx - Ix admin for Medicare patients 11:19:30 CDT CPT-49405 Fluzone High-Dose Intramuscular Suspension 12/07 11:19:30 CDT CPT-J0897 Prolia 60 mg 14:55:42 CDT CPT-59463 Abx/Therapy Injection 14:55:42 CDT CPT-82908 Bone Density - XRAY USE ONLY 10:27:12 CDT 2 CPT-G0439 Subsequent Annual Wellness Exam 17:54:53 CDT CPT-65590 Foot, left, comp min 3V - XRAY USE ONLY 12:22:49 CDT CPT-G0009 Administration of Pneumococcal Vaccine 3 12:18:00 CDT CPT-70069 Pneumovax 23 Injection Injectable 25 MCG /0.5ML 12:18:00 CDT CPT-J0897 Prolia 60 mg 14:14:16 COMMUNICATION ANALYST CPT-17694 Abx/Therapy Injection 14:14:15 COMMUNICATION ANALYST CPT-61559 Lipid - LAB USE ONLY 10:01:52 COMMUNICATION ANALYST 2 CPT-67777 Calcium - LAB USE ONLY 10:01:51 COMMUNICATION ANALYST CPT-62137 Venipuncture Draw Fee 10:01:51 COMMUNICATION ANALYST CPT-LR Lesion Removal 16:22:01 COMMUNICATION ANALYST CPT-92773 TSH - LAB USE ONLY 14:26:02 CDT CPT-27273 CMP - LAB USE ONLY 14:26:01 CDT CPT-81970 CBC with Diff - LAB USE ONLY 14:26:01 CDT 2 CPT-89777 Venipuncture Draw Fee 14:26:01 CDT CPT-33901 First Vx - Ix admin for Medicare patients 13:27:08 CDT CPT-72782 Fluzone High-Dose Intramuscular Suspension 11/26 13:27:08 CDT CPT-G0438 Initial Annual Wellness Exam 14:19:57 CD T CPT-G0009 Administration of Pneumococcal Vaccine 9 11:36:25 CDT CPT-77574 Prevnar 13 Intramuscular Suspension 1 1:36:25 CDT CPT-30395 Prevnar 13 Intramuscular Suspension 1 0:40:58 CDT CPT-J0897 Prolia 60 mg 10:37:16 CDT CPT-01148 Abx/Therapy Injection 10:37:16 CDT CPT-J0897 Prolia 60 mg 16:09:34 COMMUNICATION ANALYST CPT-J0897 Prolia 60 mg 11:10:35 COMMUNICATION ANALYST CPT-15273 Abx/Therapy Injection 11:10:35 COMMUNICATION ANALYST CPT-000 Give Appropriate Flu Vaccine 17:01:15 COMMUNICATION ANALYST 2 CPT-40021 Fluzone High Dose (65+) 15:03:08 COMMUNICATION ANALYST 02/15 CPT-00817 Immunization Single Admin 15:03:08 COMMUNICATION ANALYST 2014 CPT-OV Office Visit 15:58:06 CDT CPT-J0897 Prolia 60 mg 08:45:38 CDT CPT-96064 Abx/Therapy Injection 08:45:38 CDT CPT-J3420 Vitamin B12 1000mcg (Cyanocobalamin) 09:26:20 COMMUNICATION ANALYST CPT-20943 Abx/Therapy Injection 09:26:20 COMMUNICATION ANALYST CPT-J3420 Vitamin B12 1000mcg (Cyanocobalamin) 09:44:40 COMMUNICATION ANALYST CPT-12960 Abx/Therapy Injection 09:44:40 COMMUNICATION ANALYST CPT-J3420 Vitamin B12 1000mcg (Cyanocobalamin) 09:15:54 COMMUNICATION ANALYST CPT-34513 Abx/Therapy Injection 09:15:54 COMMUNICATION ANALYST CPT-J3420 Vitamin B12 1000mcg (Cyanocobalamin) 09:46:44 COMMUNICATION ANALYST CPT-30550 Abx/Therapy Injection 09:46:44 COMMUNICATION ANALYST CPT-J3420 Vitamin B12 1000mcg (Cyanocobalamin) 09:47:34 COMMUNICATION ANALYST CPT-98964 Abx/Therapy Injection 09:47:34 COMMUNICATION ANALYST CPT-J3420 Vitamin B12 1000mcg (Cyanocobalamin) 14:35:50 COMMUNICATION ANALYST CPT-J3420 Vitamin B12 1000mcg (Cyanocobalamin) 09:25:05 COMMUNICATION ANALYST CPT-67701 Abx/Therapy Injection 09:25:05 COMMUNICATION ANALYST CPT-G0008 Administration of Influenza Virus Vaccine 13:36:47 CDT CPT-45701 Fluzone High-Dose Intramuscular Suspension 11/15 13:36:47 CDT CPT-J0897 Prolia 60 mg 08:50:41 CDT CPT-97963 Abx/Therapy Injection 08:50:41 CDT CPT-84942 Bone Density 12:06:12 CDT CPT-58386 Bone Density 08:54:40 CDT CPT-OV Office Visit 15:37:02 CDT CPT-06810 Postop F/U Visit 15:47:49 CDT CPT-86757 Postop F/U Visit 15:21:02 CDT CPT-TCM Transitional Care Mgmt-High 07:52:27 CDT 20 20/06/01 CPT-88264 Venipuncture Draw Fee 13:51:18 CDT CPT-74871 Venipuncture Draw Fee 10:14:55 COMMUNICATION ANALYST CPT-66242 Venipuncture Draw Fee 13:39:45 COMMUNICATION ANALYST CPT-OV Office Visit 15:11:22 COMMUNICATION ANALYST CPT-13966 Venipuncture Draw Fee 09:20:49 COMMUNICATION ANALYST CPT-27209 Venipuncture Draw Fee 16:52:15 COMMUNICATION ANALYST CPT-60982 Venipuncture Draw Fee 10:37:24 COMMUNICATION ANALYST CPT-77920 Venipuncture Draw Fee 08:21:21 COMMUNICATION ANALYST CPT-27809 Venipuncture Draw Fee 08:30:20 COMMUNICATION ANALYST CPT-13238 Venipuncture Draw Fee 14:53:21 COMMUNICATION ANALYST CPT-99269 Venipuncture Draw Fee 09:40:56 COMMUNICATION ANALYST CPT-76577 Venipuncture Draw Fee 10:30:47 COMMUNICATION ANALYST CPT-04675 Venipuncture Draw Fee 10:46:17 COMMUNICATION ANALYST CPT-76845 Venipuncture Draw Fee 11:12:45 COMMUNICATION ANALYST CPT-98198 Venipuncture Draw Fee 09:53:33 COMMUNICATION ANALYST CPT-02874 Venipuncture Draw Fee 11:53:51 COMMUNICATION ANALYST CPT-79161 Venipuncture Draw Fee 10:33:50 COMMUNICATION ANALYST CPT-09632 Venipuncture Draw Fee 10:05:01 COMMUNICATION ANALYST CPT-90431 Venipuncture Draw Fee 14:32:52 COMMUNICATION ANALYST CPT-82215 Venipuncture Draw Fee 09:46:13 COMMUNICATION ANALYST CPT-31897 Venipuncture Draw Fee 11:34:27 COMMUNICATION ANALYST CPT-67408 Venipuncture Draw Fee 13:17:16 COMMUNICATION ANALYST CPT-96839 Venipuncture Draw Fee 12:05:39 CDT CPT-34011 Venipuncture Draw Fee 12:49:12 CDT CPT-73652 Venipuncture Draw Fee 12:37:18 CDT CPT-28882 Venipuncture Draw Fee 10:57:11 CDT CPT-74592 Venipuncture Draw Fee 13:47:40 CDT CPT-97349 Venipuncture Draw Fee 10:02:17 CDT CPT-13836 TB Tubersol 17:32:32 CDT CPT-OV Office Visit 16:21:53 CDT CPT-OV Office Visit 15:49:22 CDT CPT-OV Office Visit 17:16:31 CDT CPT-OV Office Visit 10:43:31 CDT
--- OUTSIDE RECORDS SUMMARY | 2019-02-09 11:35 | XMS REPORT | Clinical Summary ---
Author Author Renaldo, Florecita Munoz Organization [facility] [employer] Address Unknown Phone Unavailable Allergies, Adverse Reactions, [...] PhD Hyperpotassemia GERD 530.81 Resolved Kylie Yokum CAR SEAT [employer]KER Esophageal reflux Health maintenance exam V70.0 Resolved Adolfo Yates MD Routine general medical examination at a health care facility Anemia 285.9 Resolved Kylie Yanet [employer] Anemia, unspecified Personal history of malignant neoplasm of large intestine V10.05 Active Adam Yates MD Personal history of malignant neoplasm of large intestine Hypomagnesemia 275.2 Resolved Kylie Yanet [employer] Disorders of magnesium metabolism Weakness 780.79 Resolved [...] Sebaceous cyst, scalp 706.2 Resolved Kylie Yokum [employer] Sebaceous cyst Cervical lymphadenopathy, anterior, left 785.6 Resolv ed Kylie Yokum [employer] Enlargement of lymph nodes Need for prophylactic vaccination and inoculation against in fluenza V04.81 Resolved Adam Yates MD Need for prophylactic vaccination and inoculation against influenza Preventive health care V70.0 Resolved Kylie Lundu m [employer] Routine general medical examination at a health care facility Thyroid nodule, left 241.0 Resolved Selena Yates MD Nontoxic uninodular goiter Screening mammogram V76.12 Resolved Kylie Yokum A PRN Other screening mammogram Mandy 706.2 Resolved Kylie Yokum [employer] Sebaceous cyst Colon cancer, ascending 153.6 Resolved Kylie Yok um [employer] Malignant neoplasm of ascending colon Foot pain, left 729.5 Resolved Kylie Yokum [employer] Pain in limb Splinter 919.6 Resolved Kylie Yokum [employer] SE[employer] Superficial foreign body (splinter) of other, multiple, and unspecified sites, without major open wound and without mention of infection Rash 782.1 Resolved Kylie Yokum [employer] SE[employer] Rash and other nonspecific skin eruption Cyst 706.2 Resolved Kylie Yokum [employer] Sebaceous cyst Body Mass Index 23.0-23.9 Adult Refinement 2017 Kylie Yokum [employer] SE[employer] Body Mass Index between 19-24, adult BMI [...] Preoperative examination V72.84 Active Kylie Yok um [employer] Preoperative examination, unspecified ABDOMINAL PAIN, RIGHT LOWER QUADRANT ICD-789.03 Inactive Kina Joshua [employer] ADENOCARCINOMA, COLON, 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 Dick Yates MD ABDOMINAL PAIN, GENERALIZED ICD-789.07 Inactive Hope Benavidez MD PhD FEVER UNSPECIFIED ICD-780.60 Inactive Hope cohn MD PhD UNSPECIFIED VENOUS INSUFFICIENCY ICD-459.81 [place] [facility] Adam Yates MD ADENOCARCINOMA, 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 Inac tive Hope Benavidez MD PhD Hyperkalemia ICD-276.7 Inactive Hope Benavidez MD PhD GERD ICD-530.81 Inactive Kylie Holt [employer] 2015 Health maintenance exam ICD-V70.0 Bam Yates MD Anemia ICD-285.9 Inactive Kylie Holt [employer] 07/24 Hypomagnesemia ICD-275.2 Inactive Kylie Holt [employer] Weakness ICD-780.79 Inactive Hope Benavidez MD P [...] cyst, scalp ICD-706.2 Inactive Tracy hi Yokum [employer] Cervical lymphadenopathy, anterior, left ICD-785.6 Inactive Kylie Yokum [employer] Need for prophylactic vaccination and inoculation against in fluenza ICD-V04.81 Inactive Adam Yates MD Preventive health care ICD-V70.0 Inactive Ka thi Yokum [employer] SE[employer] Thyroid nodule, left ICD-241.0 Inactive Selena Yates MD Screening mammogram ICD-V76.12 Inactive Kylie Yokum [employer] Mandy ICD-706.2 Inactive Kylie Yokum [employer] 07/20 Colon cancer, ascending ICD-153.6 Inactive K athi Yokum [employer] Foot pain, left ICD-729.5 Inactive Kylie Yokum [employer] Splinter ICD-919.6 Inactive Kylie Yokum [employer] 2017 Rash ICD-782.1 Inactive Kylie Yokum [employer] 07/25 Cyst ICD-706.2 Inactive Kylie Yokum [employer] 08/11 Unspecified fall, initial encounter ICD-E888.9 Inactive [...] ORAL TABLET DELAYED RELEASE 1 daily ASPIRIN 90545902535 Active Kylie Holt AMY Active SYNTHROID 100 MCG ORAL TABLET Take one tablet 30 minut es before breakfast or other medications for hypothyroidism. LEVOTHYROX INE SODIUM 11556875787 Active Kylie Holt AMY Active VOLTAREN 1 % TRANSDERMAL GEL apply 2 grams q 6-8 hour to left arm as needed for pain DICLOFENAC SODIUM 74073835771 Active Kylie Lundoliver ROMERO N Active IMODIUM A-D 2 MG ORAL TABLET 1 tablet twice a day LOPERAMIDE HCL 37485383420 Active Kylie Holt AMY Active COQ10 100 MG ORAL CAPSULE 1 daily COENZYME Q10 329685 63399 Active Fay Alberts [facility] Active VITAMIN D3 2000 UNIT ORAL CAPSULE Melaleuca-One daily CHOLECALCIFEROL 73869395480 Active Kylie Yokum [employer] Active PROBIOTIC DAILY ORAL CAPSULE Take one daily PROBIO TIC PRODUCT 23707955805 Active Kylie Holt [employer] Active IRON 325 (65 Fe) MG ORAL TABLET 1 every other day FERROUS SULFATE 45187500086 No Longer Active Kylie Holt [employer] Active FLORANEX ORAL PACKET 1 pack three times daily, for bowel health LACTOBACILLUS 66644804670 No Longer Active Kylie Holt [employer] Active LOMOTIL 2.5-0.025 MG ORAL TABLET 1 tab by mouth prn 23/10/23 DIPHENOXYLATE-ATROPINE 91830291767 No Longer Active Kylie Lundum [employer] Active MAGNESIUM GLUCONATE 250 MG ORAL TABLET 1 tab tid 23/10/23 MAGNESIUM GLUCONATE 52698238884 No Longer Active Kylie Lundum [employer] Active CYANOCOBALAMIN 1000 MCG/ML INJECTION SOLUTION 1 injection ev ruben 2 weeks CYANOCOBALAMIN 81754707465 No Longer Active Kylie Lund um [employer] Active ATENOLOL 25 MG ORAL TABLET 1/2 pill by mouth daily, fo r headaches, blood pressure ATENOLOL 32622190713 Active Kylie Holt [employer] Active PROPRANOLOL HCL 80 MG ORAL TABLET 1 tab tue. and thur. PROPRANOLOL HCL 94620346036 No Longer Active Hope Benavidez MD PhD A ctive VITAMIN D3 4000 IU 1 tab 3 times daily VITAMIN D3 4000 IU No Longer Active Hope Benavidez MD PhD Active BACTRIM DS 800-160 MG ORAL TABLET 1 pill by mouth twice claudio y, for UTI SULFAMETHOXAZOLE-TRIMETHOPRIM 84146846618 No Longer Active Hope Benavidez MD PhD Active PROLIA 60 MG/ML SUBCUTANEOUS SOLUTION 1 shot every 6 months for osteoprosis DENOSUMAB 57095360505 Active Hope Benavidez MD PhD Active CALCIUM + D + K 750-500-40 MG-UNT-MCG ORAL TABLET 1 tab by m out twice daily CALCIUM-VITAMIN D-VITAMIN K 04710391740 Active Hope valdez MD PhD Active DAILY VALUE MULTIVITAMIN ORAL TABLET 1 tab by mouth twice daily 201 05/16/14 MULTIPLE VITAMIN 56942536827 Active Hope Benavidez MD PhD Acti ve FISH OIL 306 MG CAPS 1 tab by mouth three times daily OMEGA-3 FATTY ACIDS 88101326559 Active Hope Benavidez MD PhD Active LUTEIN 10 MG ORAL TABLET 1 tab daily LUTEIN 62287833 408 Active Hope Benavidez MD PhD Active TRIAMTERENE-HCTZ 37.5-25 MG ORAL TABLET 1 tab by mouth daily 10/22 TRIAMTERENE-HCTZ 01057993729 Active Kylie Holt [employer] Active CYCLOBENZAPRINE HCL 10 MG ORAL TABLET 1 tablet by mout h three times daily as needed for headaches CYCLOBENZAPRINE HCL 29473527867 No Longer Active Adam Yates MD Active OMEPRAZOLE 20 MG ORAL CAPSULE DELAYED RELEASE 1 tablet by [facility] daily for GERD OMEPRAZOLE 48029001509 No Longer Active Adam Yates MD Active ZOFRAN 8 MG ORAL TABLET 1 tab by mouth every 12 hours prn 4 ONDANSETRON HCL 45825781210 No Longer Active Adam Yates MD Active PHENADOZ 25 MG RECTAL SUPPOSITORY 1 every 4 hrs. PRN 2 PROMETHAZINE HCL 00412812922 No Longer Active Adam Yates MD A ctive POTASSIUM CHLORIDE 20 MEQ ORAL PACKET by mouth twice a day prn 2 POTASSIUM CHLORIDE 29427538688 No Longer Active Adam Carpenter MD Active PROMETHAZINE HCL 25 MG ORAL TABLET 1 Q. 4 hr. PRN PROMETHAZINE HCL 24178341064 No Longer Active Adam Yates MD Active INNOPRAN XL 120 MG ORAL CAPSULE EXTENDED RELEASE 24 HO UR Take one by mouth daily PROPRANOLOL HCL SR BEADS 80418428829 No Longer Active Adam Yates MD Active FLAGYL 500 MG ORAL TABLET 1 pill by mouth three times daily, for diarrhea METRONIDAZOLE 33053048009 No Longer Active Hope landers MD PhD Active DYAZIDE 37.5-25 MG ORAL CAPSULE 1 qd TRIA MTERENE-HCTZ 10139632348 No Longer Active Hope Benavidez MD PhD Active PROZAC 20 MG ORAL CAPSULE 1 q d FLUOXETINE HCL 41239973156 No Longer Active Hope Benavidez MD PhD Active SIMVASTATIN 40 MG ORAL TABLET 1 qd SIMVAS TATIN 12103172000 No Longer Active Adam Yates MD Active MELOXICAM 15 MG ORAL TABLET 1 qd MELOXICAM 84125128503 No Longer Active Adam Yates MD Active EXCEDRIN EXTRA STRENGTH 250-250-65 MG ORAL TABLET 1-2 q6h WI N headache [id number] 17051525029 Active Hope Benavidez MD PhD Active FLAGYL 500 MG ORAL TABLET 1 qid METRONIDAZOL E 22731919488 No Longer Active Adam Yates MD Active LEVAQUIN 750 MG ORAL TABLET 1 qd LEVOFLOXAC IN 45818859745 No Longer Active Adam Yates MD Active ADULT ASPIRIN LOW STRENGTH 81 MG ORAL TABLET DISINTEGRATING 1 qd ASPIRIN 28685345083 Active Hope Benavidez MD PhD Active LEVAQUIN 750 MG ORAL TABLET 1 qd LEVAQUIN 750 MG ORAL TABLET 749793 LEVOFLOXACIN Inactive FLAGYL 500 MG ORAL TABLET 1 qid FLAGYL 500 MG ORAL TABLET 488776 METRONIDAZOLE Inactive MELOXICAM 15 MG ORAL TABLET 1 qd MELOXICAM 15 MG ORAL TABLET 055250 MELOXICAM Inactive SIMVASTATIN 40 MG ORAL TABLET 1 qd SIMVASTATIN 40 MG ORAL TABLET 210168 SIMVASTATIN Inactive PROZAC 20 MG ORAL CAPSULE 1 q d PROZAC 20 MG ORAL CAPSULE 574819 FLUOXETINE HCL Inactive DYAZIDE 37.5-25 MG ORAL CAPSULE 1 qd 5 DYAZIDE 37.5-25 MG ORAL CAPSULE 847065 TRIAMTERENE-HCTZ Inactive INNOPRAN XL 120 MG ORAL CAPSULE EXTENDED RELEASE 24 HO UR Take one by mouth daily INNOPRAN XL 120 MG ORAL CAPSULE EXTENDED RELEASE 24 HOUR PROPRANOLOL HCL SR BEADS Inactive PROMETHAZINE HCL 25 MG ORAL TABLET 1 Q. 4 hr. PRN 2013 PROMETHAZINE HCL 25 MG ORAL TABLET 764542 PROMETHAZINE HCL Inactive POTASSIUM CHLORIDE 20 MEQ ORAL PACKET by mouth twice a day prn POTASSIUM CHLORIDE 20 MEQ ORAL PACKET 3291594 POTASSIUM CHLORIDE Inactive PHENADOZ 25 MG RECTAL SUPPOSITORY 1 every 4 hrs. PRN 2 PHENADOZ 25 MG RECTAL SUPPOSITORY 538236 PROMETHAZINE HCL Inactive ZOFRAN 8 MG ORAL TABLET 1 tab by mouth every 12 hours prn 4 ZOFRAN 8 MG ORAL TABLET 731866 ONDANSETRON HCL Inactive OMEPRAZOLE 20 MG ORAL CAPSULE DELAYED RELEASE 1 tablet by mo uth daily for GERD OMEPRAZOLE 20 MG ORAL CAPSULE DELAYED RELEASE 19 8051 OMEPRAZOLE Inactive CYCLOBENZAPRINE HCL 10 MG ORAL TABLET 1 tablet by mout h three times daily as needed for headaches CYCLOBENZAPRINE HCL 10 MG ORAL TABLET 298902 CYCLOBENZAPRINE HCL Inactive VITAMIN D3 4000 IU 1 tab 3 times daily VITAMIN D3 4000 IU Inactive PROPRANOLOL HCL 80 MG ORAL TABLET 1 tab tue. and thur. PROPRANOLOL HCL 80 MG ORAL TABLET 871951 PROPRANOLOL HCL Inacti ve CYANOCOBALAMIN 1000 MCG/ML INJECTION SOLUTION 1 injection ev ruben 2 weeks CYANOCOBALAMIN 1000 MCG/ML INJECTION SOLUTION 30 9594 CYANOCOBALAMIN Inactive MAGNESIUM GLUCONATE 250 MG ORAL TABLET 1 tab tid 23/10/23 MAGNESIUM GLUCONATE 250 MG ORAL TABLET 431460 MAGNESIUM GLUCONATE Inactive LOMOTIL 2.5-0.025 MG ORAL TABLET 1 tab by mouth prn 20 23/10/23 LOMOTIL 2.5-0.025 MG ORAL TABLET 4339944 DIPHENOXYLATE-ATROPINE Inac tive FLORANEX ORAL PACKET 1 pack three times daily, for bowel health FLORANEX ORAL PACKET 56818672667 LACTOBACILLUS Inactive IRON 325 (65 Fe) MG ORAL TABLET 1 every other day 2015 IRON 325 (65 Fe) MG ORAL TABLET 323639 FERROUS SULFATE Inactive FLAGYL 500 MG ORAL TABLET 1 pill by mouth three times daily, for diarrhea FLAGYL 500 MG ORAL TABLET 032910 METRONIDAZOLE I nactive BACTRIM DS 800-160 MG ORAL TABLET 1 pill by mouth twice claudio y, for UTI BACTRIM DS 800-160 MG ORAL TABLET 514156 SULFAMETHOXAZOLE-TRIMETHOPRIM Inactive Advance Directives Directive Description Start [...] ... - Chemistry cholesterol, serum 211 mg/dL 825-982 1318/01/10 triglyceride, serum, fasting 77 mg/dL 30-200 HDL cholesterol, serum 70 mg/dL 32-60 LDL cholesterol, serum 126 mg/dL 0-130 TSH 1.19 m[iU]/mL 0.36-3.74 sodium, serum 141 mmol/L 716-326 5321/01/10 potassium, serum 3.7 mmol/L 3.5-5.2 chloride, serum [...] ... - Chemistry sodium, serum 142 mmol/L 231-408 2705/04/16 carbon dioxide, venous blood 30.0 mmol/L 21.0-32 [...] 50-136 Lab Report: Free Thyroxine (L) - Supervisor Functional Testing ry thyroxine, serum, free 0.82 ng/dL 0.59-1.17 Lab Report: Thyroid Stimulating Hormone (L), Free Thyroxine (L) - Chemistry TSH 13.85 m[iU]/mL 0.36-3.74 thyroxine, serum, free 0.65 ng/dL 0.59-1.17 TSH 13.59 m[iU]/mL 0.36-3.74 thyroxine, serum, free 0.47 ng/dL 0.59-1.17 Encounters Code Encounter Date Provider Facility CPT-57467 [id number] Vst-Est Level III 12:20:52 BAG GRAD[facility]13113 44390-Hri Vst-Est Level III 09:15:19 CDT [facility] [place] [facility] [place] CPT-81235 Level 4 Est. Patient 15:35:24 BAG GRADER Adam Yates MD [facility] CPT-70450 Level 3 New Patient 12:08:54 BAG GRADER Adam Yates MD [facility] CPT-78945 24911-Ncq Vst-Est Level IV 19:48:30 BAG GRADER Tracy Holt [facility] [place]note 3] [place] CPT-92994 35152-Xeg Vst-Est Level III 14:29:19 CDT Fiorella en[facility] [place] [facility] [place] CPT-69648 Level 2 Est. Patient 14:58:26 CDT [facility]36 Level 3 Est. Patient 08:15:24 BAG GRADER Kylie boyd [facility] CPT-48884 Level 2 Est. Patient 14:27:16 BAG GRADER Kylie boyd [facility] CPT-03416 Level 3 Est. Patient 17:54:48 CDT Kylie boyd [facility] CPT-06536 Level 3 Est. Patient 16:26:30 CDT Kina blackmon [facility] [place][note 3] CPT-69792 Level 3 New Patient 16:22:01 BAG GRADER Adam Yates MD [facility] CPT-16578 Level 4 Est. Patient 17:00:48 CDT Kylie Lund [facility] [place] CPT-10957 Level 3 Est. Patient 13:15:54 CDT Kylie Lund [facility] CPT-62626 Level 3 Est. Patient 09:10:11 CDT Kylie Lund [facility] CPT-45727 Level 4 Est. Patient 12:08:30 BAG GRADER Hope cohn MD [facility] CPT-24923 Level 4 Est. Patient 19:08:42 BAG GRADER Hope cohn MD PhD [facility] CPT-28392 Level 4 Est. Patient 20:04:51 CDT Hope cohn MD PhD [facility] CPT-88131 Level 3 New Patient 01:46:11 BAG GRADER Hope landers MD PhD [facility] Procedures Code Procedure Name Date Entry Date Standard Desc ription [id number]-OF4984V (4274F) Influenza immunization administe red or previously received 12:20:52 BAG GRADER CPT-G0008 Administration of Influenza Virus Vaccine 15:08:32 CDT CPT-32417 Flublok Quadrivalent (Flu) Syringe IM(Me dicare) 15:08:32 CDT CPT-70490 Venipuncture Draw Fee 10:06:15 CDT CPT-68838 Bone Density - XRAY USE ONLY 11:51:35 CDT 2 CPT-67674 Free T4 - LAB USE ONLY 11:44:37 CDT CPT-14613 TSH - LAB USE ONLY 11:44:37 CDT CPT-41150 Venipuncture Draw Fee 11:44:37 CDT CPT-J0897 Prolia 60 mg 10:36:55 CDT CPT-03549 Abx/Therapy Injection 10:36:55 CDT CPT-90893 Venipuncture Draw Fee 13:34:11 CDT CPT-G0439 Subsequent Annual Wellness Exam 09:15:19 CDT CPT-17587 Postop F/U Visit 15:45:41 CDT CPT-81461 Sono Soft Tissue Head and Neck - XRAY US E ONLY 11:56:06 BAG GRADER CPT-39528 Abx/Therapy Injection 09:40:08 BAG GRADER CPT-J0897 Prolia 60 mg 09:40:08 BAG GRADER CPT-65326 First Vx - Ix admin for Medicare patients 02/08 10:02:45 CDT CPT-39541 Fluzone Quadrivalent Intramuscular Suspe nsion 0.5 ML 10:02:45 CDT CPT-02292 Magnesium - LAB USE ONLY 09:41:00 CDT 12/09 CPT-52138 Renal Panel - LAB USE ONLY 09:41:00 CDT 201 09/17/01 CPT-42274 Venipuncture Draw Fee 09:41:00 CDT CPT-12077 Calcium - LAB USE ONLY 17:25:11 CDT CPT-J0897 Prolia 60 mg 15:10:59 CDT CPT-96900 Abx/Therapy Injection 15:10:59 CDT CPT-G0439 [facility] Annual Wellness Exam 14:29:19 CDT CPT-16401 Venipuncture Draw Fee 10:59:04 CDT CPT-75258 CMP - LAB USE ONLY 10:59:04 CDT CPT-24755 CBC with Diff - LAB USE ONLY 10:59:03 CDT 2 CPT-J0897 Prolia 60 mg 15:46:54 BAG GRADER CPT-01401 Abx/Therapy Injection 15:46:54 BAG GRADER CPT-86858 Microalbumin - LAB USE ONLY 09:41:32 BAG GRADER 20 23/01/15 CPT-91720 Free T4 - LAB USE ONLY 09:41:32 BAG GRADER CPT-52466 TSH - LAB USE ONLY 09:41:32 BAG GRADER CPT-41394 BMP - LAB USE ONLY 09:41:32 BAG GRADER CPT-64820 Venipuncture Draw Fee 09:41:32 BAG GRADER CPT-08269 First Vx - Ix admin for Medicare patients 11:19:30 CDT CPT-49848 Fluzone High-Dose Intramuscular Suspension 12/07 11:19:30 CDT CPT-J0897 Prolia 60 mg 14:55:42 CDT CPT-85522 Abx/Therapy Injection 14:55:42 CDT CPT-23348 Bone Density - XRAY USE ONLY 10:27:12 CDT 2 CPT-G0439 Subsequent Annual Wellness Exam 17:54:53 CDT CPT-69211 Foot, left, comp min 3V - XRAY USE ONLY 12:22:49 CDT CPT-G0009 Administration of Pneumococcal Vaccine 3 12:18:00 CDT CPT-54745 Pneumovax 23 Injection Injectable 25 MCG /0.5ML 12:18:00 CDT CPT-J0897 Prolia 60 mg 14:14:16 BAG GRADER CPT-31290 Abx/Therapy Injection 14:14:15 BAG GRADER CPT-26023 Lipid - LAB USE ONLY 10:01:52 BAG GRADER 2 CPT-49869 Calcium - LAB USE ONLY 10:01:51 BAG GRADER CPT-42722 Venipuncture Draw Fee 10:01:51 BAG GRADER CPT-LR Lesion Removal 16:22:01 BAG GRADER CPT-46915 TSH - LAB USE ONLY 14:26:02 CDT CPT-93527 CMP - LAB USE ONLY 14:26:01 CDT CPT-83624 CBC with Diff - LAB USE ONLY 14:26:01 CDT 2 CPT-24721 Venipuncture Draw Fee 14:26:01 CDT CPT-83561 First Vx - Ix admin for Medicare patients 13:27:08 CDT CPT-82375 Fluzone High-Dose Intramuscular Suspension 11/26 13:27:08 CDT CPT-G0438 Initial Annual Wellness Exam 14:19:57 CD T CPT-G0009 Administration of Pneumococcal Vaccine 9 11:36:25 CDT CPT-51454 Prevnar 13 Intramuscular Suspension 1 1:36:25 CDT CPT-38256 Prevnar 13 Intramuscular Suspension 1 0:40:58 CDT CPT-J0897 Prolia 60 mg 10:37:16 CDT CPT-15333 Abx/Therapy Injection 10:37:16 CDT CPT-J0897 Prolia 60 mg 16:09:34 BAG GRADER CPT-J0897 Prolia 60 mg 11:10:35 BAG GRADER CPT-46148 Abx/Therapy Injection 11:10:35 BAG GRADER CPT-000 Give Appropriate Flu Vaccine 17:01:15 BAG GRADER 2 CPT-25425 Fluzone High Dose (65+) 15:03:08 BAG GRADER 02/15 CPT-30016 Immunization Single Admin 15:03:08 BAG GRADER 2014 CPT-OV Office Visit 15:58:06 CDT CPT-J0897 Prolia 60 mg 08:45:38 CDT CPT-88908 Abx/Therapy Injection 08:45:38 CDT CPT-J3420 Vitamin B12 1000mcg (Cyanocobalamin) 09:26:20 BAG GRADER CPT-49308 Abx/Therapy Injection 09:26:20 BAG GRADER CPT-J3420 Vitamin B12 1000mcg (Cyanocobalamin) 09:44:40 BAG GRADER CPT-28492 Abx/Therapy Injection 09:44:40 BAG GRADER CPT-J3420 Vitamin B12 1000mcg (Cyanocobalamin) 09:15:54 BAG GRADER CPT-40589 Abx/Therapy Injection 09:15:54 BAG GRADER CPT-J3420 Vitamin B12 1000mcg (Cyanocobalamin) 09:46:44 BAG GRADER CPT-36648 Abx/Therapy Injection 09:46:44 BAG GRADER CPT-J3420 Vitamin B12 1000mcg (Cyanocobalamin) 09:47:34 BAG GRADER CPT-40976 Abx/Therapy Injection 09:47:34 BAG GRADER CPT-J3420 Vitamin B12 1000mcg (Cyanocobalamin) 14:35:50 BAG GRADER CPT-J3420 Vitamin B12 1000mcg (Cyanocobalamin) 09:25:05 BAG GRADER CPT-07482 Abx/Therapy Injection 09:25:05 BAG GRADER CPT-G0008 Administration of Influenza Virus Vaccine 13:36:47 CDT CPT-60923 Fluzone High-Dose Intramuscular Suspension 11/15 13:36:47 CDT CPT-J0897 Prolia 60 mg 08:50:41 CDT CPT-78473 Abx/Therapy Injection 08:50:41 CDT CPT-73399 Bone Density 12:06:12 CDT CPT-34658 Bone Density 08:54:40 CDT CPT-OV Office Visit 15:37:02 CDT CPT-68894 Postop F/U Visit 15:47:49 CDT CPT-34008 Postop F/U Visit 15:21:02 CDT CPT-TCM Transitional Care Mgmt-High 07:52:27 CDT 20 20/06/01 CPT-28635 Venipuncture Draw Fee 13:51:18 CDT CPT-24196 Venipuncture Draw Fee 10:14:55 BAG GRADER CPT-10742 Venipuncture Draw Fee 13:39:45 BAG GRADER CPT-OV Office Visit 15:11:22 BAG GRADER CPT-69704 Venipuncture Draw Fee 09:20:49 BAG GRADER CPT-17004 Venipuncture Draw Fee 16:52:15 BAG GRADER CPT-20356 Venipuncture Draw Fee 10:37:24 BAG GRADER CPT-13346 Venipuncture Draw Fee 08:21:21 BAG GRADER CPT-45133 Venipuncture Draw Fee 08:30:20 BAG GRADER CPT-70814 Venipuncture Draw Fee 14:53:21 BAG GRADER CPT-20403 Venipuncture Draw Fee 09:40:56 BAG GRADER CPT-80463 Venipuncture Draw Fee 10:30:47 BAG GRADER CPT-37478 Venipuncture Draw Fee 10:46:17 BAG GRADER CPT-67812 Venipuncture Draw Fee 11:12:45 BAG GRADER CPT-55882 Venipuncture Draw Fee 09:53:33 BAG GRADER CPT-59615 Venipuncture Draw Fee 11:53:51 BAG GRADER CPT-49941 Venipuncture Draw Fee 10:33:50 BAG GRADER CPT-42535 Venipuncture Draw Fee 10:05:01 BAG GRADER CPT-83052 Venipuncture Draw Fee 14:32:52 BAG GRADER CPT-81941 Venipuncture Draw Fee 09:46:13 BAG GRADER CPT-13470 Venipuncture Draw Fee 11:34:27 BAG GRADER CPT-70138 Venipuncture Draw Fee 13:17:16 BAG GRADER CPT-56327 Venipuncture Draw Fee 12:05:39 CDT CPT-35424 Venipuncture Draw Fee 12:49:12 CDT CPT-07891 Venipuncture Draw Fee 12:37:18 CDT CPT-92222 Venipuncture Draw Fee 10:57:11 CDT CPT-39304 Venipuncture Draw Fee 13:47:40 CDT CPT-11030 Venipuncture Draw Fee 10:02:17 CDT CPT-77277 TB Tubersol 17:32:32 CDT CPT-OV Office Visit 16:21:53 CDT CPT-OV Office Visit 15:49:22 CDT CPT-OV Office Visit 17:16:31 CDT CPT-OV Office Visit 10:43:31 CDT
--- OUTSIDE RECORDS SUMMARY | 2019-02-09 11:36 | XMS REPORT | Clinical Summary ---
Author Author Admin, Florecita Munoz Organization [facility] [place] Address Unknown Phone Unavailable Allergies, Adverse Reactions, [...] Sebaceous cyst, scalp 706.2 Resolved Kylie Yokum [employer]ING MACHINE [employer] Sebaceous cyst Cervical lymphadenopathy, anterior, left 785.6 Resolv ed Kylie Yokum [employer]ING [employer]ACHINE [employer] Enlargement of lymph nodes Need for prophylactic vaccination and inoculation against in fluenza V04.81 Resolved Adam Yates MD Need for prophylactic vaccination and inoculation against influenza Preventive health care V70.0 Resolved Kylie Lundu m [employer]INE [employer] Routine general medical examination at a health care facility Thyroid nodule, left 241.0 Resolved Selena Yates MD Nontoxic uninodular goiter Screening mammogram V76.12 Resolved Kylie Yokum A PRN Other screening mammogram Mandy 706.2 Resolved Kylie Yokum [employer]INE [employer] Sebaceous cyst Colon cancer, ascending 153.6 Resolved Kylie Yok um [employer]ING MACHINE [employer]EDER Malignant neoplasm of ascending colon Foot pain, left 729.5 Resolved Kylie Yokum [employer]OLDING MACHINE FE[employer]ER Pain in limb Splinter 919.6 Resolved Kylie Yokum [employer]ING MACHINE FE[employer]ER Superficial foreign body (splinter) of other, multiple, and unspecified sites, without major open wound and without mention of infection Rash 782.1 Resolved Kylie Yokum [employer]ING MACHINE [employer]ER Rash and other nonspecific skin eruption Cyst 706.2 Resolved Kylie Yokum [employer]OLDING MACHINE [employer]ER Sebaceous cyst Body Mass Index 23.0-23.9 Adult Refinement 2017 Kylie Yokum [employer]ING MACHINE FE[employer]ER Body Mass Index between 19-24, adult BMI [...] medical examination at a health care facility ABDOMINAL PAIN, RIGHT LOWER QUADRANT ICD-789.03 Inactive Kina Joshua [employer]ING MACHINE [employer]ER ADENOCARCINOMA, COLON, 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 Dick Yates MD ABDOMINAL PAIN, GENERALIZED ICD-789.07 Inactive Hope Benavidez MD PhD FEVER UNSPECIFIED ICD-780.60 Inactive Hope cohn MD PhD UNSPECIFIED VENOUS INSUFFICIENCY ICD-459.81 [place] ctive Adam Yates MD ADENOCARCINOMA, 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 Inac tive Hope Benavidez MD PhD Hyperkalemia ICD-276.7 Inactive Hope Benavidez MD PhD GERD ICD-530.81 Inactive Kylie Yanet [employer]INE FEEDER 2015 Health maintenance exam ICD-V70.0 Bam Yates MD Anemia ICD-285.9 Inactive Kylie Escalonapari [employer]ING MACHINE [employer]EDER 07/24 Hypomagnesemia ICD-275.2 Inactive Kylie Holt FOLDING MACHINE FEEDER Weakness ICD-780.79 Inactive Hope Benavidez MD P [...] cyst, scalp ICD-706.2 Inactive Tracy hi Yokum [employer]OLDING MACHINE FEEDER Cervical lymphadenopathy, anterior, left ICD-785.6 Inactive Kylie Yokum FOLDING MACHINE [employer]ER Need for prophylactic vaccination and inoculation against in fluenza ICD-V04.81 Inactive Adam Yates MD Preventive health care ICD-V70.0 Inactive Ka thi Yokum FOLDING MACHINE FEEDER Thyroid nodule, left ICD-241.0 Inactive Selena Yates MD Screening mammogram ICD-V76.12 Inactive Kylie Yokum FOLDING MACHINE FEEDER Mandy ICD-706.2 Inactive Kylie Yokum FOLDING MACHINE FEEDER 07/20 Colon cancer, ascending ICD-153.6 Inactive K athi Yokum FOLDING MACHINE FEEDER Foot pain, left ICD-729.5 Inactive Kylie Yokum FOLDING MACHINE FEEDER Splinter ICD-919.6 Inactive Kylie Yokum [employer]OLDING MACHINE FEEDER 2017 Rash ICD-782.1 Inactive Kylie Yokum FOLDING MACHINE FEEDER 07/25 Cyst ICD-706.2 Inactive Kylie Yokum FOLDING MACHINE FEEDER 08/11 Unspecified fall, initial encounter ICD-E888.9 Inactive Kylie Yokum [employer]OLDING MACHINE [employer]ER Eye pain, left ICD-379.91 Inactive Kylie Holt APRN Pharyngitis, acute ICD-074.0 Inactive Kavin Yates MD Hypomagnesemia ICD-275.2 Inactive Adam Franklin MD Hypokalemia ICD-276.8 Inactive Adam enamorado MD Enlarged thyroid ICD-240.9 Inactive Adam Yates MD Underweight Inactive LETY Nation 05/17 Follicular adenoma, thyroid ICD-226 Inactive Adam Yates MD Preventive health care, adult ICD-V70.0 Inacti ve Kylie Holt APRN Medication List Medication Instructions Start Date Stop Date Generic Name NDC Status Provider Patient Instruction SYNTHROID 100 MCG ORAL TABLET Take one tablet 30 minut es before breakfast or other medications for hypothyroidism. LEVOTHYROX INE SODIUM 58279773670 Active Kylie Holt APRN Active VOLTAREN 1 % TRANSDERMAL GEL apply 2 grams q 6-8 hour to left arm as needed for pain DICLOFENAC SODIUM 34141496624 Active Kylie Holt APR N Active IMODIUM A-D 2 MG ORAL TABLET 1 tablet twice a day LOPERAMIDE HCL 10542748669 Active Kylie Holt APRN Active COQ10 100 MG ORAL CAPSULE 1 daily COENZYME Q10 517081 68303 Active LETY [place] Active VITAMIN D3 2000 UNIT ORAL CAPSULE Melaleuca-One daily CHOLECALCIFEROL 61777371309 Active Kylie Holt APRN Active PROBIOTIC DAILY ORAL CAPSULE Take one daily PROBIO TIC PRODUCT 59017725158 Active Kylie Holt APRN Active IRON 325 (65 Fe) MG ORAL TABLET 1 every other day FERROUS SULFATE 85464546168 No Longer Active Kylie Yokum [employer]OLDING [employer]ACHINE FEEDER Active FLORANEX ORAL PACKET 1 pack three times daily, for bowel health LACTOBACILLUS 07426146946 No Longer Active Kylie Lundum [employer]OLDING MACHINE FEEDER Active LOMOTIL 2.5-0.025 MG ORAL TABLET 1 tab by mouth prn 20 23/10/23 DIPHENOXYLATE-ATROPINE 98282216200 No Longer Active Kylie Lundum FOLDING MACHINE FEEDER Active MAGNESIUM GLUCONATE 250 MG ORAL TABLET 1 tab tid 23/10/23 MAGNESIUM GLUCONATE 55911089094 No Longer Active Kylie Lundum [employer]OLDING MACHINE FEEDER Active CYANOCOBALAMIN 1000 MCG/ML INJECTION SOLUTION 1 injection ev ruben 2 weeks CYANOCOBALAMIN 26733954246 No Longer Active Kylie Lund um FOLDING MACHINE FEEDER Active ATENOLOL 25 MG ORAL TABLET 1/2 pill by mouth daily, fo r headaches, blood pressure ATENOLOL 27575993847 Active Kylie Lundum FOLDING MACHINE FEEDER Active PROPRANOLOL HCL 80 MG ORAL TABLET 1 tab tue. and thur. PROPRANOLOL HCL 95197023199 No Longer Active Hope Benavidez MD PhD A ctive VITAMIN D3 4000 IU 1 tab 3 times daily VITAMIN D3 4000 IU No Longer Active Hope Benavidez MD PhD Active BACTRIM DS 800-160 MG ORAL TABLET 1 pill by mouth twice claudio y, for UTI SULFAMETHOXAZOLE-TRIMETHOPRIM 49552623927 No Longer Active Hope Benavidez MD PhD Active PROLIA 60 MG/ML SUBCUTANEOUS SOLUTION 1 shot every 6 months for osteoprosis DENOSUMAB 82508923964 Active Hope Benavidez MD PhD Active CALCIUM + D + K 750-500-40 MG-UNT-MCG ORAL TABLET 1 tab by m harvinder twice daily CALCIUM-VITAMIN D-VITAMIN K 86850481622 Active Hope valdez MD PhD Active DAILY VALUE MULTIVITAMIN ORAL TABLET 1 tab by mouth twice daily 201 05/16/14 MULTIPLE VITAMIN 51767593791 Active Hope Benavidez MD PhD Acti ve FISH OIL 306 MG CAPS 1 tab by mouth three times daily OMEGA-3 FATTY ACIDS 79503384687 Active Hope Benavidez MD PhD Active LUTEIN 10 MG ORAL TABLET 1 tab daily LUTEIN 72779333 408 Active Hope Benavidez MD PhD Active TRIAMTERENE-HCTZ 37.5-25 MG ORAL TABLET 1 tab by mouth daily 10/22 TRIAMTERENE-HCTZ 31089567810 Active Kylie Holt [employer]OLDING MACHINE FEEDER Active CYCLOBENZAPRINE HCL 10 MG ORAL TABLET 1 tablet by mout h three times daily as needed for headaches CYCLOBENZAPRINE HCL 71962758010 No Longer Active Adam Yates MD Active OMEPRAZOLE 20 MG ORAL CAPSULE DELAYED RELEASE 1 tablet by mo [facility] daily for GERD OMEPRAZOLE 32073854303 No Longer Active Adam Yates MD Active ZOFRAN 8 MG ORAL TABLET 1 tab by mouth every 12 hours prn 4 ONDANSETRON HCL 83537109385 No Longer Active Adam Yates MD Active PHENADOZ 25 MG RECTAL SUPPOSITORY 1 every 4 hrs. PRN 2 PROMETHAZINE HCL 53565515507 No Longer Active Adam Yates MD A ctive POTASSIUM CHLORIDE 20 MEQ ORAL PACKET by mouth twice a day prn 2 POTASSIUM CHLORIDE 30403565790 No Longer Active Adam Carpenter MD Active PROMETHAZINE HCL 25 MG ORAL TABLET 1 Q. 4 hr. PRN PROMETHAZINE HCL 28319172280 No Longer Active Adam Yates MD Active INNOPRAN XL 120 MG ORAL CAPSULE EXTENDED RELEASE 24 HO UR Take one by mouth daily PROPRANOLOL HCL SR BEADS 26355377420 No Longer Active Adam Yates MD Active FLAGYL 500 MG ORAL TABLET 1 pill by mouth three times daily, for diarrhea METRONIDAZOLE 53452331602 No Longer Active Hope landers MD PhD Active DYAZIDE 37.5-25 MG ORAL CAPSULE 1 qd TRIA MTERENE-HCTZ 81461226259 No Longer Active Hope Benavidez MD PhD Active PROZAC 20 MG ORAL CAPSULE 1 q d FLUOXETINE HCL 48023405896 No Longer Active Hope Benavidez MD PhD Active SIMVASTATIN 40 MG ORAL TABLET 1 qd SIMVAS TATIN 77593854539 No Longer Active Adam Yates MD Active MELOXICAM 15 MG ORAL TABLET 1 qd MELOXICAM 02965517826 No Longer Active Adam Yates MD Active EXCEDRIN EXTRA STRENGTH 250-250-65 MG ORAL TABLET 1-2 q6h FL N headache [id number] 57234066601 Active Hope Benavidez MD PhD Active FLAGYL 500 MG ORAL TABLET 1 qid METRONIDAZOL E 79493444945 No Longer Active Adam Yates MD Active LEVAQUIN 750 MG ORAL TABLET 1 qd LEVOFLOXAC IN 72683612940 No Longer Active Adam Yates MD Active ADULT ASPIRIN LOW STRENGTH 81 MG ORAL TABLET DISINTEGRATING 1 qd ASPIRIN 19008247204 Active Hope Benavidez MD PhD Active LEVAQUIN 750 MG ORAL TABLET 1 qd LEVAQUIN 750 MG ORAL TABLET 626532 LEVOFLOXACIN Inactive FLAGYL 500 MG ORAL TABLET 1 qid FLAGYL 500 MG ORAL TABLET 009567 METRONIDAZOLE Inactive MELOXICAM 15 MG ORAL TABLET 1 qd MELOXICAM 15 MG ORAL TABLET 684358 MELOXICAM Inactive SIMVASTATIN 40 MG ORAL TABLET 1 qd SIMVASTATIN 40 MG ORAL TABLET 110137 SIMVASTATIN Inactive PROZAC 20 MG ORAL CAPSULE 1 q d PROZAC 20 MG ORAL CAPSULE 276591 FLUOXETINE HCL Inactive DYAZIDE 37.5-25 MG ORAL CAPSULE 1 qd 5 DYAZIDE 37.5-25 MG ORAL CAPSULE 565205 TRIAMTERENE-HCTZ Inactive INNOPRAN XL 120 MG ORAL CAPSULE EXTENDED RELEASE 24 HO UR Take one by mouth daily INNOPRAN XL 120 MG ORAL CAPSULE EXTENDED RELEASE 24 HOUR PROPRANOLOL HCL SR BEADS Inactive PROMETHAZINE HCL 25 MG ORAL TABLET 1 Q. 4 hr. PRN 2013 PROMETHAZINE HCL 25 MG ORAL TABLET 350741 PROMETHAZINE HCL Inactive POTASSIUM CHLORIDE 20 MEQ ORAL PACKET by mouth twice a day prn 2 POTASSIUM CHLORIDE 20 MEQ ORAL PACKET 4970709 POTASSIUM CHLORIDE Inactive PHENADOZ 25 MG RECTAL SUPPOSITORY 1 every 4 hrs. PRN 2 PHENADOZ 25 MG RECTAL SUPPOSITORY 949231 PROMETHAZINE HCL Inactive ZOFRAN 8 MG ORAL TABLET 1 tab by mouth every 12 hours prn 4 ZOFRAN 8 MG ORAL TABLET 293755 ONDANSETRON HCL Inactive OMEPRAZOLE 20 MG ORAL CAPSULE DELAYED RELEASE 1 tablet by mo uth daily for GERD OMEPRAZOLE 20 MG ORAL CAPSULE DELAYED RELEASE 19 8051 OMEPRAZOLE Inactive CYCLOBENZAPRINE HCL 10 MG ORAL TABLET 1 tablet by mout h three times daily as needed for headaches CYCLOBENZAPRINE HCL 10 MG ORAL TABLET 651925 CYCLOBENZAPRINE HCL Inactive VITAMIN D3 4000 IU 1 tab 3 times daily VITAMIN D3 4000 IU Inactive PROPRANOLOL HCL 80 MG ORAL TABLET 1 tab tue. and thur. PROPRANOLOL HCL 80 MG ORAL TABLET 170175 PROPRANOLOL HCL Inacti ve CYANOCOBALAMIN 1000 MCG/ML INJECTION SOLUTION 1 injection ev ruben 2 weeks CYANOCOBALAMIN 1000 MCG/ML INJECTION SOLUTION 30 9594 CYANOCOBALAMIN Inactive MAGNESIUM GLUCONATE 250 MG ORAL TABLET 1 tab tid 23/10/23 MAGNESIUM GLUCONATE 250 MG ORAL TABLET 371731 MAGNESIUM GLUCONATE Inactive LOMOTIL 2.5-0.025 MG ORAL TABLET 1 tab by mouth prn 20 23/10/23 LOMOTIL 2.5-0.025 MG ORAL TABLET 5943369 DIPHENOXYLATE-ATROPINE Inac tive FLORANEX ORAL PACKET 1 pack three times daily, for bowel health FLORANEX ORAL PACKET 26658033397 LACTOBACILLUS Inactive IRON 325 (65 Fe) MG ORAL TABLET 1 every other day 2015 IRON 325 (65 Fe) MG ORAL TABLET 566435 FERROUS SULFATE Inactive FLAGYL 500 MG ORAL TABLET 1 pill by mouth three times daily, for diarrhea FLAGYL 500 MG ORAL TABLET 402879 METRONIDAZOLE I nactive BACTRIM DS 800-160 MG ORAL TABLET 1 pill by mouth twice claudio y, for UTI BACTRIM DS 800-160 MG ORAL TABLET 254737 SULFAMETHOXAZOLE-TRIMETHOPRIM Inactive Advance Directives Directive Description Start [...] Description blood pressure, diastolic, repeated by physician 82 [...] ... - Chemistry cholesterol, serum 211 mg/dL 220-718 2143/01/10 triglyceride, serum, fasting 77 mg/dL 30-200 HDL cholesterol, serum 70 mg/dL 32-60 LDL cholesterol, serum 126 mg/dL 0-130 TSH 1.19 m[iU]/mL 0.36-3.74 sodium, serum 141 mmol/L 605-903 1622/01/10 potassium, serum 3.7 mmol/L 3.5-5.2 chloride, serum [...] ... - Chemistry sodium, serum 142 mmol/L 769-622 4613/04/16 carbon dioxide, venous blood 30.0 mmol/L 21.0-32 [...] 50-136 Lab Report: Free Thyroxine (L) - Automatic Profile Shaper Operator ry thyroxine, serum, free 0.82 ng/dL 0.59-1.17 Lab Report: Thyroid Stimulating Hormone (L), Free Thyroxine (L) - Chemistry TSH 13.85 m[iU]/mL 0.36-3.74 thyroxine, serum, free 0.65 ng/dL 0.59-1.17 TSH 13.59 m[iU]/mL 0.36-3.74 thyroxine, serum, free 0.47 ng/dL 0.59-1.17 Encounters Code Encounter Date Provider Facility CPT-24522 [id number] Vst-Est Level III 09:15:19 CDT Fiorella Holt [facility] CPT-53871 Level 4 Est. Patient 15:35:24 REVIEW ASSISTANT Adam Yates MD [facility] CPT-91958 Level 3 New Patient 12:08:54 REVIEW ASSISTANT Adam Yates MD [facility] CPT-63514 [id number] Vst-Est Level IV 19:48:30 REVIEW ASSISTANT Tracy Holt [facility] CPT-93884 [id number] Vst-Est Level III 14:29:19 [facility] Level 2 Est. Patient 14:58:26 CDT Kylie Lund [facility] CPT-55721 Level 3 Est. Patient 08:15:24 REVIEW ASSISTANT Kylie Lund [facility] CPT-02556 Level 2 Est. Patient 14:27:16 REVIEW ASSISTANT Kylie Escalonagabbi oliver [facility] CPT-80434 Level 3 Est. Patient 17:54:48 CDT Kylie Escalonagabbi oliver [facility] CPT-84472 Level 3 Est. Patient 16:26:30 CDT Kinachrista blackmon [facility] CPT-29428 Level 3 New Patient 16:22:01 REVIEW ASSISTANT Adam Yates MD [facility] CPT-62398 Level 4 Est. Patient 17:00:48 CDT Kylie Kevon oliver [facility] CPT-23163 Level 3 Est. Patient 13:15:54 CDT Kylie boyd [facility] CPT-18261 Level 3 Est. Patient 09:10:11 CDT Kylie boyd [facility] CPT-95573 Level 4 Est. Patient 12:08:30 REVIEW ASSISTANT Hope cohn MD [facility] CPT-88439 Level 4 Est. Patient 19:08:42 REVIEW ASSISTANT Hope cohn MD [facility] CPT-07428 Level 4 Est. Patient 20:04:51 CDT Hope cohn MD [facility] CPT-09919 Level 3 New Patient 01:46:11 REVIEW ASSISTANT Hope landers MD [facility] Procedures Code Procedure Name Date Entry Date Standard Desc ription CPT-G0008 Administration of Influenza Virus Vaccine 15:08:32 CDT CPT-73293 Flublok Quadrivalent (Flu) Syringe IM(Me dicare) 15:08:32 CDT CPT-23735 Venipuncture Draw Fee 10:06:15 CDT CPT-26404 Bone Density - XRAY USE ONLY 11:51:35 CDT 2 CPT-34534 Free T4 - LAB USE ONLY 11:44:37 CDT CPT-44692 TSH - LAB USE ONLY 11:44:37 CDT CPT-60072 Venipuncture Draw Fee 11:44:37 CDT CPT-J0897 Prolia 60 mg 10:36:55 CDT CPT-95391 Abx/Therapy Injection 10:36:55 CDT CPT-25415 Venipuncture Draw Fee 13:34:11 CDT CPT-G0439 [facility] Annual Wellness Exam 09:15:19 CDT CPT-95717 Postop F/U Visit 15:45:41 CDT CPT-99838 Sono Soft Tissue Head and Neck - XRAY US E ONLY 11:56:06 REVIEW ASSISTANT CPT-08443 Abx/Therapy Injection 09:40:08 REVIEW ASSISTANT CPT-J0897 Prolia 60 mg 09:40:08 REVIEW ASSISTANT CPT-33284 First Vx - Ix admin for Medicare patients 02/08 10:02:45 CDT CPT-42915 Fluzone Quadrivalent Intramuscular Suspe nsion 0.5 ML 10:02:45 CDT CPT-79275 Magnesium - LAB USE ONLY 09:41:00 CDT 12/09 CPT-55574 Renal Panel - LAB USE ONLY 09:41:00 CDT 201 09/17/01 CPT-26954 Venipuncture Draw Fee 09:41:00 CDT CPT-89032 Calcium - LAB USE ONLY 17:25:11 CDT CPT-J0897 Prolia 60 mg 15:10:59 CDT CPT-08883 Abx/Therapy Injection 15:10:59 CDT CPT-G0439 Subsequent Annual Wellness Exam 14:29:19 CDT CPT-55026 Venipuncture Draw Fee 10:59:04 CDT CPT-93868 CMP - LAB USE ONLY 10:59:04 CDT CPT-01354 CBC with Diff - LAB USE ONLY 10:59:03 CDT 2 CPT-J0897 Prolia 60 mg 15:46:54 REVIEW ASSISTANT CPT-77616 Abx/Therapy Injection 15:46:54 REVIEW ASSISTANT CPT-50244 Microalbumin - LAB USE ONLY 09:41:32 REVIEW ASSISTANT 20 23/01/15 CPT-77096 Free T4 - LAB USE ONLY 09:41:32 REVIEW ASSISTANT CPT-49870 TSH - LAB USE ONLY 09:41:32 REVIEW ASSISTANT CPT-01621 BMP - LAB USE ONLY 09:41:32 REVIEW ASSISTANT CPT-49413 Venipuncture Draw Fee 09:41:32 REVIEW ASSISTANT CPT-35259 First Vx - Ix admin for Medicare patients 11:19:30 CDT CPT-85689 Fluzone High-Dose Intramuscular Suspension 12/07 11:19:30 CDT CPT-J0897 Prolia 60 mg 14:55:42 CDT CPT-60477 Abx/Therapy Injection 14:55:42 CDT CPT-70065 Bone Density - XRAY USE ONLY 10:27:12 CDT 2 CPT-G0439 Subsequent Annual Wellness Exam 17:54:53 CDT CPT-81120 Foot, left, comp min 3V - XRAY USE ONLY 12:22:49 CDT CPT-G0009 Administration of Pneumococcal Vaccine 3 12:18:00 CDT CPT-35103 Pneumovax 23 Injection Injectable 25 MCG /0.5ML 12:18:00 CDT CPT-J0897 Prolia 60 mg 14:14:16 REVIEW ASSISTANT CPT-32817 Abx/Therapy Injection 14:14:15 REVIEW ASSISTANT CPT-52009 Lipid - LAB USE ONLY 10:01:52 REVIEW ASSISTANT 2 CPT-11615 Calcium - LAB USE ONLY 10:01:51 REVIEW ASSISTANT CPT-27914 Venipuncture Draw Fee 10:01:51 REVIEW ASSISTANT CPT-LR Lesion Removal 16:22:01 REVIEW ASSISTANT CPT-80897 TSH - LAB USE ONLY 14:26:02 CDT CPT-64369 CMP - LAB USE ONLY 14:26:01 CDT CPT-31583 CBC with Diff - LAB USE ONLY 14:26:01 CDT 2 CPT-06675 Venipuncture Draw Fee 14:26:01 CDT CPT-06696 First Vx - Ix admin for Medicare patients 13:27:08 CDT CPT-35025 Fluzone High-Dose Intramuscular Suspension 11/26 13:27:08 CDT CPT-G0438 Initial Annual Wellness Exam 14:19:57 CD T CPT-G0009 Administration of Pneumococcal Vaccine 9 11:36:25 CDT CPT-62683 Prevnar 13 Intramuscular Suspension 1 1:36:25 CDT CPT-04488 Prevnar 13 Intramuscular Suspension 1 0:40:58 CDT CPT-J0897 Prolia 60 mg 10:37:16 CDT CPT-00886 Abx/Therapy Injection 10:37:16 CDT CPT-J0897 Prolia 60 mg 16:09:34 REVIEW ASSISTANT CPT-J0897 Prolia 60 mg 11:10:35 REVIEW ASSISTANT CPT-21204 Abx/Therapy Injection 11:10:35 REVIEW ASSISTANT CPT-000 Give Appropriate Flu Vaccine 17:01:15 REVIEW ASSISTANT 2 CPT-41694 Fluzone High Dose (65+) 15:03:08 REVIEW ASSISTANT 02/15 CPT-03910 Immunization Single Admin 15:03:08 REVIEW ASSISTANT 2014 CPT-OV Office Visit 15:58:06 CDT CPT-J0897 Prolia 60 mg 08:45:38 CDT CPT-86551 Abx/Therapy Injection 08:45:38 CDT CPT-J3420 Vitamin B12 1000mcg (Cyanocobalamin) 09:26:20 REVIEW ASSISTANT CPT-91161 Abx/Therapy Injection 09:26:20 REVIEW ASSISTANT CPT-J3420 Vitamin B12 1000mcg (Cyanocobalamin) 09:44:40 REVIEW ASSISTANT CPT-58685 Abx/Therapy Injection 09:44:40 REVIEW ASSISTANT CPT-J3420 Vitamin B12 1000mcg (Cyanocobalamin) 09:15:54 REVIEW ASSISTANT CPT-76325 Abx/Therapy Injection 09:15:54 REVIEW ASSISTANT CPT-J3420 Vitamin B12 1000mcg (Cyanocobalamin) 09:46:44 REVIEW ASSISTANT CPT-83234 Abx/Therapy Injection 09:46:44 REVIEW ASSISTANT CPT-J3420 Vitamin B12 1000mcg (Cyanocobalamin) 09:47:34 REVIEW ASSISTANT CPT-89239 Abx/Therapy Injection 09:47:34 REVIEW ASSISTANT CPT-J3420 Vitamin B12 1000mcg (Cyanocobalamin) 14:35:50 REVIEW ASSISTANT CPT-J3420 Vitamin B12 1000mcg (Cyanocobalamin) 09:25:05 REVIEW ASSISTANT CPT-86101 Abx/Therapy Injection 09:25:05 REVIEW ASSISTANT CPT-G0008 Administration of Influenza Virus Vaccine 13:36:47 CDT CPT-55597 Fluzone High-Dose Intramuscular Suspension 11/15 13:36:47 CDT CPT-J0897 Prolia 60 mg 08:50:41 CDT CPT-99814 Abx/Therapy Injection 08:50:41 CDT CPT-99413 Bone Density 12:06:12 CDT CPT-06138 Bone Density 08:54:40 CDT CPT-OV Office Visit 15:37:02 CDT CPT-87026 Postop F/U Visit 15:47:49 CDT CPT-80706 Postop F/U Visit 15:21:02 CDT CPT-TCM Transitional Care Mgmt-High 07:52:27 CDT 20 20/06/01 CPT-09104 Venipuncture Draw Fee 13:51:18 CDT CPT-01490 Venipuncture Draw Fee 10:14:55 REVIEW ASSISTANT CPT-50011 Venipuncture Draw Fee 13:39:45 REVIEW ASSISTANT CPT-OV Office Visit 15:11:22 REVIEW ASSISTANT CPT-75160 Venipuncture Draw Fee 09:20:49 REVIEW ASSISTANT CPT-21723 Venipuncture Draw Fee 16:52:15 REVIEW ASSISTANT CPT-32551 Venipuncture Draw Fee 10:37:24 REVIEW ASSISTANT CPT-91584 Venipuncture Draw Fee 08:21:21 REVIEW ASSISTANT CPT-71618 Venipuncture Draw Fee 08:30:20 REVIEW ASSISTANT CPT-91187 Venipuncture Draw Fee 14:53:21 REVIEW ASSISTANT CPT-32219 Venipuncture Draw Fee 09:40:56 REVIEW ASSISTANT CPT-90161 Venipuncture Draw Fee 10:30:47 REVIEW ASSISTANT CPT-91167 Venipuncture Draw Fee 10:46:17 REVIEW ASSISTANT CPT-97480 Venipuncture Draw Fee 11:12:45 REVIEW ASSISTANT CPT-06910 Venipuncture Draw Fee 09:53:33 REVIEW ASSISTANT CPT-97251 Venipuncture Draw Fee 11:53:51 REVIEW ASSISTANT CPT-58632 Venipuncture Draw Fee 10:33:50 REVIEW ASSISTANT CPT-01616 Venipuncture Draw Fee 10:05:01 REVIEW ASSISTANT CPT-46112 Venipuncture Draw Fee 14:32:52 REVIEW ASSISTANT CPT-90982 Venipuncture Draw Fee 09:46:13 REVIEW ASSISTANT CPT-27056 Venipuncture Draw Fee 11:34:27 REVIEW ASSISTANT CPT-17157 Venipuncture Draw Fee 13:17:16 REVIEW ASSISTANT CPT-51375 Venipuncture Draw Fee 12:05:39 CDT CPT-37153 Venipuncture Draw Fee 12:49:12 CDT CPT-02791 Venipuncture Draw Fee 12:37:18 CDT CPT-12724 Venipuncture Draw Fee 10:57:11 CDT CPT-70389 Venipuncture Draw Fee 13:47:40 CDT CPT-89666 Venipuncture Draw Fee 10:02:17 CDT CPT-82231 TB Tubersol 17:32:32 CDT CPT-OV Office Visit 16:21:53 CDT CPT-OV Office Visit 15:49:22 CDT CPT-OV Office Visit 17:16:31 CDT CPT-OV Office Visit 10:43:31 CDT
--- OUTSIDE RECORDS SUMMARY | 2019-02-09 11:37 | XMS REPORT | Clinical Summary ---
Author Author Renaldo, Florecita Munoz Organization [facility] [employer] Address Unknown Phone Unavailable Allergies, Adverse Reactions, [...] PhD Hyperpotassemia GERD 530.81 Resolved Kylie Yokum [employer]IDGE TE[employer]ER Esophageal reflux Health maintenance exam V70.0 Resolved Adolfo Yates MD Routine general medical examination at a health care facility Anemia 285.9 Resolved Kylie Yanet [employer]GE TE[employer]ER Anemia, unspecified Personal history of malignant neoplasm of large intestine V10.05 Active Adam Yates MD Personal history of malignant neoplasm of large intestine Hypomagnesemia 275.2 Resolved Kylie Yanet [employer]IDGE TE[employer]ER Disorders of magnesium metabolism Weakness 780.79 Resolved [...] Sebaceous cyst, scalp 706.2 Resolved Kylie Yokum [employer]IDGE TE[employer]ER Sebaceous cyst Cervical lymphadenopathy, anterior, left 785.6 Resolv ed Kylie Yokum BRIDGE TE[employer]ER Enlargement of lymph nodes Need for prophylactic vaccination and inoculation against in fluenza V04.81 Resolved Adam Yates MD Need for prophylactic vaccination and inoculation against influenza Preventive health care V70.0 Resolved Kylie Lundu m [employer]GE TE[employer]ER Routine general medical examination at a health care facility Thyroid nodule, left 241.0 Resolved Selena Yates MD Nontoxic uninodular goiter Screening mammogram V76.12 Resolved Kylie Yokum A PRN Other screening mammogram Mandy 706.2 Resolved Kylie Yokum [employer]GE TE[employer]ER Sebaceous cyst Colon cancer, ascending 153.6 Resolved Kylie Yok um BRIDGE TEACHER Malignant neoplasm of ascending colon Foot pain, left 729.5 Resolved Kylie Yokum BRIDGE TE[employer]ER Pain in limb Splinter 919.6 Resolved Kylie Yokum BRIDGE TEACHER Superficial foreign body (splinter) of other, multiple, and unspecified sites, without major open wound and without mention of infection Rash 782.1 Resolved Kylie Yokum BRIDGE TEACHER Rash and other nonspecific skin eruption Cyst 706.2 Resolved Kylie Yokum BRIDGE TEACHER Sebaceous cyst Body Mass Index 23.0-23.9 Adult Refinement 2017 Kylie Yokum BRIDGE TEACHER Body Mass Index between 19-24, adult BMI [...] RIGHT LOWER QUADRANT ICD-789.03 Inactive Kina Joshua BRIDGE TEACHER ADENOCARCINOMA, COLON, 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 Dick Yates MD ABDOMINAL PAIN, GENERALIZED ICD-789.07 Inactive Hope Benavidez MD PhD FEVER UNSPECIFIED ICD-780.60 Inactive Hope cohn MD PhD UNSPECIFIED VENOUS INSUFFICIENCY ICD-459.81 Elda ctive Adam Yates MD ADENOCARCINOMA, 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 Inac tive Hope Benavidez MD PhD Hyperkalemia ICD-276.7 Inactive Hope Benavidez MD PhD GERD ICD-530.81 Inactive Kylie Yanet BRIDGE TEACHER 2015 Health maintenance exam ICD-V70.0 Inactive Adolfo Yates MD Anemia ICD-285.9 Inactive Kylie Lundoliver BRIDGE TEACHER 07/24 Hypomagnesemia ICD-275.2 Inactive Kylie Holt BRIDGE TEACHER Weakness ICD-780.79 Inactive Hope Benavidez MD P Colon cancer ICD-153.9 Inactive Adam luna MD Asymptomatic postmenopausal status (age-related) (natural) I CD-V49.81 Inactive Hope Benavidez MD PhD Diarrhea, functional ICD-564.5 Inactive Selena Yates MD Dysuria ICD-788.1 Inactive Hope Benavidez MD PhD 201 05/19/01 Adenocarcinoma, ascending colon ICD-153.6 Inac tive Adam Yates MD Sebaceous cyst, scalp ICD-706.2 Inactive Tracy hi Yokum BRIDGE TEACHER Cervical lymphadenopathy, anterior, left ICD-785.6 Inactive Kylie Yokum BRIDGE TEACHER Need for prophylactic vaccination and inoculation against in fluenza ICD-V04.81 Inactive Adam Yates MD Preventive health care ICD-V70.0 Inactive Ka thi Yokum BRIDGE TEACHER Thyroid nodule, left ICD-241.0 Inactive Selena Yates MD Screening mammogram ICD-V76.12 Inactive Kylie Yokum BRIDGE TEACHER Mandy ICD-706.2 Inactive Kylie Yokum BRIDGE TEACHER 07/20 Colon cancer, ascending ICD-153.6 Inactive K athi Yokum BRIDGE TEACHER Foot pain, left ICD-729.5 Inactive Kylie Yokum BRIDGE TEACHER Splinter ICD-919.6 Inactive Kylie Yokum BRIDGE TEACHER 2017 Rash ICD-782.1 Inactive Kylie Yokum BRIDGE TEACHER 07/25 Aftercare following surgery of the teeth,oral cavity a nd digestive system, NEC ICD-V58.75 Bam Yates MD Cyst ICD-706.2 Inactive Kylie Yokum BRIDGE TEACHER 08/11 Unspecified fall, initial encounter ICD-E888.9 Inactive Kylie Yokum BRIDGE TEACHER Eye pain, left ICD-379.91 Inactive Kylie Holt APRN Pharyngitis, acute ICD-074.0 Inactive Kavin Yates MD Hypomagnesemia ICD-275.2 Inactive Adma Franklin MD Hypokalemia ICD-276.8 Inactive Adam enamorado MD Enlarged thyroid ICD-240.9 Inactive Adam Yates MD Underweight Inactive LETY Nation 05/17 Follicular adenoma, thyroid ICD-226 Inactive Adam Yates MD Preventive health care, adult ICD-V70.0 Inacti ve Kylie Holt APRN Medication List Medication Instructions Start Date Stop Date Generic Name NDC Status Provider Patient Instruction SYNTHROID 75 MCG ORAL TABLET Take one tablet 30 minute s before breakfast or other medications for hypothyroidism. LEVOTHYROX INE SODIUM 28010115851 Active Kylie Holt APRN Active VOLTAREN 1 % TRANSDERMAL GEL apply 2 grams q 6-8 hour to left arm as needed for pain DICLOFENAC SODIUM 46782032534 Active Kylie Holt APR N Active IMODIUM A-D 2 MG ORAL TABLET 1 tablet twice a day LOPERAMIDE HCL 17620055436 Active Kylie Holt APRN Active COQ10 100 MG ORAL CAPSULE 1 daily COENZYME Q10 411422 86423 Active LETY Nation Active VITAMIN D3 2000 UNIT ORAL CAPSULE Melaleuca-One daily CHOLECALCIFEROL 29375741990 Active Kylie Holt APRN Active PROBIOTIC DAILY ORAL CAPSULE Take one daily PROBIO TIC PRODUCT 91404933617 Active Kylie Holt APRN Active IRON 325 (65 Fe) MG ORAL TABLET 1 every other day FERROUS SULFATE 40567836086 No Longer Active Kylie Yokum BRIDGE TEACHER Active FLORANEX ORAL PACKET 1 pack three times daily, for bowel health LACTOBACILLUS 73907657988 No Longer Active Kylie Yokum BRIDGE TEACHER Active LOMOTIL 2.5-0.025 MG ORAL TABLET 1 tab by mouth prn 20 23/10/23 DIPHENOXYLATE-ATROPINE 21587978019 No Longer Active Kylie Yokum BRIDGE TEACHER Active MAGNESIUM GLUCONATE 250 MG ORAL TABLET 1 tab tid 23/10/23 MAGNESIUM GLUCONATE 15245991305 No Longer Active Kylie Yokum BRIDGE TEACHER Active CYANOCOBALAMIN 1000 MCG/ML INJECTION SOLUTION 1 injection ev ruben 2 weeks CYANOCOBALAMIN 39144865005 No Longer Active Kylie Yok um BRIDGE TEACHER Active ATENOLOL 25 MG ORAL TABLET 1/2 pill by mouth daily, fo r headaches, blood pressure ATENOLOL 80044444270 Active Kylie Yokum BRIDGE TEACHER Active PROPRANOLOL HCL 80 MG ORAL TABLET 1 tab tue. and thur. PROPRANOLOL HCL 73399035191 No Longer Active Hope Benavidez MD PhD A ctive VITAMIN D3 4000 IU 1 tab 3 times daily VITAMIN D3 4000 IU No Longer Active Hope Benavidez MD PhD Active BACTRIM DS 800-160 MG ORAL TABLET 1 pill by mouth twice claudio y, for UTI SULFAMETHOXAZOLE-TRIMETHOPRIM 83716182987 No Longer Active Hope Benavidez MD PhD Active PROLIA 60 MG/ML SUBCUTANEOUS SOLUTION 1 shot every 6 months for osteoprosis DENOSUMAB 13549756170 Active Hope Benavidez MD PhD Active CALCIUM + D + K 750-500-40 MG-UNT-MCG ORAL TABLET 1 tab by m outh twice daily CALCIUM-VITAMIN D-VITAMIN K 87583997084 Active Hope valdez MD PhD Active DAILY VALUE MULTIVITAMIN ORAL TABLET 1 tab by mouth twice daily 201 05/16/14 MULTIPLE VITAMIN 06291712035 Active Hope Benavidez MD PhD Acti ve FISH OIL 306 MG CAPS 1 tab by mouth three times daily OMEGA-3 FATTY ACIDS 06449287117 Active Hope Benavidez MD PhD Active LUTEIN 10 MG ORAL TABLET 1 tab daily LUTEIN 51239480 408 Active Hope Benavidez MD PhD Active TRIAMTERENE-HCTZ 37.5-25 MG ORAL TABLET 1 tab by mouth daily 10/22 TRIAMTERENE-HCTZ 33665694351 Active Kylie Holt BRIDGE TEACHER Active CYCLOBENZAPRINE HCL 10 MG ORAL TABLET 1 tablet by mout h three times daily as needed for headaches CYCLOBENZAPRINE HCL 90176833890 No Longer Active Adam Yates MD Active OMEPRAZOLE 20 MG ORAL CAPSULE DELAYED RELEASE 1 tablet by mo [facility] daily for GERD OMEPRAZOLE 63661491205 No Longer Active Adam Yates MD Active ZOFRAN 8 MG ORAL TABLET 1 tab by mouth every 12 hours prn 4 ONDANSETRON HCL 07242958035 No Longer Active Adam Yates MD Active PHENADOZ 25 MG RECTAL SUPPOSITORY 1 every 4 hrs. PRN 2 PROMETHAZINE HCL 50404937895 No Longer Active Adam Yates MD A ctive POTASSIUM CHLORIDE 20 MEQ ORAL PACKET by mouth twice a day prn 2 POTASSIUM CHLORIDE 69824149265 No Longer Active Adam Carpenter MD Active PROMETHAZINE HCL 25 MG ORAL TABLET 1 Q. 4 hr. PRN PROMETHAZINE HCL 80498805806 No Longer Active Adam Yates MD Active INNOPRAN XL 120 MG ORAL CAPSULE EXTENDED RELEASE 24 HO UR Take one by mouth daily PROPRANOLOL HCL SR BEADS 48014651150 No Longer Active Adam Yates MD Active FLAGYL 500 MG ORAL TABLET 1 pill by mouth three times daily, for diarrhea METRONIDAZOLE 96115201338 No Longer Active Hope landers MD PhD Active DYAZIDE 37.5-25 MG ORAL CAPSULE 1 qd TRIA MTERENE-HCTZ 17913022299 No Longer Active Hope Benavidez MD PhD Active PROZAC 20 MG ORAL CAPSULE 1 q d FLUOXETINE HCL 37051797395 No Longer Active Hope Benavidez MD PhD Active SIMVASTATIN 40 MG ORAL TABLET 1 qd SIMVAS TATIN 06261947010 No Longer Active Adam Yates MD Active MELOXICAM 15 MG ORAL TABLET 1 qd MELOXICAM 03925567504 No Longer Active Adam Yates MD Active EXCEDRIN EXTRA STRENGTH 250-250-65 MG ORAL TABLET 1-2 q6h ND N headache [id number] 86755692838 Active Hope Benavidez MD PhD Active FLAGYL 500 MG ORAL TABLET 1 qid METRONIDAZOL E 27590864945 No Longer Active Adam Yates MD Active LEVAQUIN 750 MG ORAL TABLET 1 qd LEVOFLOXAC IN 72520532804 No Longer Active Adam Yates MD Active ADULT ASPIRIN LOW STRENGTH 81 MG ORAL TABLET DISINTEGRATING 1 qd ASPIRIN 31486382706 Active Hope Benavidez MD PhD Active LEVAQUIN 750 MG ORAL TABLET 1 qd LEVAQUIN 750 MG ORAL TABLET 158080 LEVOFLOXACIN Inactive FLAGYL 500 MG ORAL TABLET 1 qid FLAGYL 500 MG ORAL TABLET 747321 METRONIDAZOLE Inactive MELOXICAM 15 MG ORAL TABLET 1 qd MELOXICAM 15 MG ORAL TABLET 252268 MELOXICAM Inactive SIMVASTATIN 40 MG ORAL TABLET 1 qd SIMVASTATIN 40 MG ORAL TABLET 379392 SIMVASTATIN Inactive PROZAC 20 MG ORAL CAPSULE 1 q d PROZAC 20 MG ORAL CAPSULE 188310 FLUOXETINE HCL Inactive DYAZIDE 37.5-25 MG ORAL CAPSULE 1 qd 5 DYAZIDE 37.5-25 MG ORAL CAPSULE 677261 TRIAMTERENE-HCTZ Inactive INNOPRAN XL 120 MG ORAL CAPSULE EXTENDED RELEASE 24 HO UR Take one by mouth daily INNOPRAN XL 120 MG ORAL CAPSULE EXTENDED RELEASE 24 HOUR PROPRANOLOL HCL SR BEADS Inactive PROMETHAZINE HCL 25 MG ORAL TABLET 1 Q. 4 hr. PRN 2013 PROMETHAZINE HCL 25 MG ORAL TABLET 620188 PROMETHAZINE HCL Inactive POTASSIUM CHLORIDE 20 MEQ ORAL PACKET by mouth twice a day prn 2 POTASSIUM CHLORIDE 20 MEQ ORAL PACKET 2692394 POTASSIUM CHLORIDE Inactive PHENADOZ 25 MG RECTAL SUPPOSITORY 1 every 4 hrs. PRN 2 PHENADOZ 25 MG RECTAL SUPPOSITORY 566349 PROMETHAZINE HCL Inactive ZOFRAN 8 MG ORAL TABLET 1 tab by mouth every 12 hours prn 4 ZOFRAN 8 MG ORAL TABLET 743867 ONDANSETRON HCL Inactive OMEPRAZOLE 20 MG ORAL CAPSULE DELAYED RELEASE 1 tablet by mo ut daily for GERD OMEPRAZOLE 20 MG ORAL CAPSULE DELAYED RELEASE 19 8051 OMEPRAZOLE Inactive CYCLOBENZAPRINE HCL 10 MG ORAL TABLET 1 tablet by mout h three times daily as needed for headaches CYCLOBENZAPRINE HCL 10 MG ORAL TABLET 829165 CYCLOBENZAPRINE HCL Inactive VITAMIN D3 4000 IU 1 tab 3 times daily VITAMIN D3 4000 IU Inactive PROPRANOLOL HCL 80 MG ORAL TABLET 1 tab tue. and thur. PROPRANOLOL HCL 80 MG ORAL TABLET 003284 PROPRANOLOL HCL Inacti ve CYANOCOBALAMIN 1000 MCG/ML INJECTION SOLUTION 1 injection ev ruben 2 weeks CYANOCOBALAMIN 1000 MCG/ML INJECTION SOLUTION 30 9594 CYANOCOBALAMIN Inactive MAGNESIUM GLUCONATE 250 MG ORAL TABLET 1 tab tid 23/10/23 MAGNESIUM GLUCONATE 250 MG ORAL TABLET 745634 MAGNESIUM GLUCONATE Inactive LOMOTIL 2.5-0.025 MG ORAL TABLET 1 tab by mouth prn 20 23/10/23 LOMOTIL 2.5-0.025 MG ORAL TABLET 4617356 DIPHENOXYLATE-ATROPINE Inac tive FLORANEX ORAL PACKET 1 pack three times daily, for bowel health FLORANEX ORAL PACKET 99480546369 LACTOBACILLUS Inactive IRON 325 (65 Fe) MG ORAL TABLET 1 every other day 2015 IRON 325 (65 Fe) MG ORAL TABLET 250785 FERROUS SULFATE Inactive FLAGYL 500 MG ORAL TABLET 1 pill by mouth three times daily, for diarrhea FLAGYL 500 MG ORAL TABLET 161937 METRONIDAZOLE I nactive BACTRIM DS 800-160 MG ORAL TABLET 1 pill by mouth twice claudio y, for UTI BACTRIM DS 800-160 MG ORAL TABLET 075468 SULFAMETHOXAZOLE-TRIMETHOPRIM Inactive Advance Directives Directive Description Start [...] MICROALB/CREAT W/RATIO, Lipid Pa ... - Chemistry sodium, serum 141 mmol/L 911-860 6773/01/10 potassium, serum 3.7 mmol/L 3.5-5.2 chloride, serum 101 mmol/L 98-107 carbon dioxide, venous blood 31.0 mmol/L 21.0-32 .0 blood glucose 96 mg/dL 65-95 calcium, serum 9.5 mg/dL 8.5-10.1 urea nitrogen, blood 21 mg/dL 7-18 creatinine, serum 1.40 mg/dL 0.60-1.30 Estimated Glomerular Filtration Rate (calc) 39 (?) mL/min/1.73m2 = OR > 60 mL/min cholesterol, serum 211 mg/dL 197-142 2394/01/10 triglyceride, serum, fasting 77 mg/dL 30-200 HDL cholesterol, serum 70 mg/dL 32-60 LDL cholesterol, serum 126 mg/dL 0-130 TSH 1.19 m[iU]/mL 0.36-3.74 Lab Report: CBC, Basic Metabolic Panel, MICROALB/CREAT [...] Stimulating Hormone (L), Free ... - Chemistry calcium, serum 9.1 mg/dL 8.5-10.1 bilirubin, serum, total 0.60 mg/dL 0.00-1.00 TSH 1.76 m[iU]/mL 0.36-3.74 thyroxine, serum, free 0.82 ng/dL 0.59-1.17 sodium, serum 142 mmol/L 812-934 4389/04/16 carbon dioxide, venous blood 30.0 mmol/L 21.0-32 .0 potassium, serum 3.2 mmol/L 3.5-5.2 chloride, serum 101 mmol/L 98-107 blood glucose 77 mg/dL 65-95 urea nitrogen, blood 21 mg/dL 7-18 creatinine, serum 1.52 mg/dL 0.60-1.30 Estimated Glomerular Filtration Rate (calc) 36 (?) mL/min/1.73m2 = OR > 60 mL/min alanine aminotransferase (SGPT), serum 24 U/L 12-78 aspartate aminotransferase (SGOT), serum 21 U/L 15-37 Lab Report: Comp. Metabolic Panel, Thyro id Stimulating Hormone (L), Free ... - Lab Alkaline phosphatase 48 50-136 Lab Report: Free Thyroxine (L) - Supervisor Last Model Department ry thyroxine, serum, free 0.82 ng/dL 0.59-1.17 Lab Report: Renal Panel, Magnesium - Chelle radha sodium, serum 142 mmol/L 027-844 9973/11/02 potassium, serum 3.4 mmol/L 3.5-5.2 chloride, serum 101 mmol/L 98-107 carbon dioxide, venous blood 31.5 mmol/L 21.0-32 .0 creatinine, serum 1.35 mg/dL 0.60-1.30 blood glucose 81 mg/dL 65-95 urea nitrogen, blood 17 mg/dL 7-18 calcium, serum 8.1 mg/dL 8.5-10.1 Estimated Glomerular Filtration Rate (calc) 41 (?) mL/min/1.73m2 = OR > 60 mL/min Lab Report: Thyroid Stimulating Hormone (L), Free Thyroxine (L) - Chemistry TSH 13.85 m[iU]/mL 0.36-3.74 thyroxine, serum, free 0.65 ng/dL 0.59-1.17 TSH 13.59 m[iU]/mL 0.36-3.74 thyroxine, serum, free 0.47 ng/dL 0.59-1.17 Encounters Code Encounter Date Provider Facility CPT-61365 [id number] Vst-Est Level III 09:15:19 [facility] [place] [facility] Level 4 Est. Patient 15:35:24 RECYCLING TECH Adam Yates MD [facility] CPT-61799 Level 3 New Patient 12:08:54 RECYCLING TECH Adam Yates MD [facility] CPT-69104 [id number] Vst-Est Level IV 19:48:30 RECYCLING TECH Tracy Holt [facility] [place] CPT-65864 [id number] Vst-Est Level III 14:29:19 CDT Fiorella Holt [facility] [place] CPT-47401 Level 2 Est. Patient 14:58:26 CDT Kylie boyd [facility] [place] CPT-58811 Level 3 Est. Patient 08:15:24 RECYCLING TECH Kylie boyd [facility]-59567 Level 2 Est. Patient 14:27:16 RECYCLING TECH Kylie boyd [facility] CPT-33133 Level 3 Est. Patient 17:54:48 CDT Kylie boyd [facility] CPT-71322 Level 3 Est. Patient 16:26:30 CDT Kina blackmon [facility] CPT-68687 Level 3 New Patient 16:22:01 RECYCLING TECH Adam Yates MD [facility] CPT-23634 Level 4 Est. Patient 17:00:48 CDT Kylie Lund [facility] CPT-45186 Level 3 Est. Patient 13:15:54 CDT Kylie Lund [facility] CPT-14268 Level 3 Est. Patient 09:10:11 CDT Kylie Lund [facility] CPT-34092 Level 4 Est. Patient 12:08:30 RECYCLING TECH Hope cohn MD [facility] CPT-02837 Level 4 Est. Patient 19:08:42 RECYCLING TECH Hope cohn MD [facility] CPT-83743 Level 4 Est. Patient 20:04:51 CDT Hope cohn MD [facility] CPT-41141 Level 3 New Patient 01:46:11 RECYCLING TECH Hope landers MD [facility] Procedures Code Procedure Name Date Entry Date Standard Desc ription CPT-G0008 Administration of Influenza Virus Vaccine 15:08:32 CDT CPT-20647 Flublok Quadrivalent (Flu) Syringe IM(Tx dicare) 15:08:32 CDT CPT-01589 Venipuncture Draw Fee 10:06:15 CDT CPT-88980 Bone Density - XRAY USE ONLY 11:51:35 CDT 2 CPT-46927 Free T4 - LAB USE ONLY 11:44:37 CDT CPT-53498 TSH - LAB USE ONLY 11:44:37 CDT CPT-81643 Venipuncture Draw Fee 11:44:37 CDT CPT-J0897 Prolia 60 mg 10:36:55 CDT CPT-77104 Abx/Therapy Injection 10:36:55 CDT CPT-37970 Venipuncture Draw Fee 13:34:11 CDT CPT-G0439 Subsequent Annual Wellness Exam 09:15:19 CDT CPT-02673 Postop F/U Visit 15:45:41 CDT CPT-23518 Sono Soft Tissue Head and Neck - XRAY US E ONLY 11:56:06 RECYCLING TECH CPT-77072 Abx/Therapy Injection 09:40:08 RECYCLING TECH CPT-J0897 Prolia 60 mg 09:40:08 RECYCLING TECH CPT-65442 First Vx - Ix admin for Medicare patients 02/08 10:02:45 CDT CPT-35368 Fluzone Quadrivalent Intramuscular Suspe nsion 0.5 ML 10:02:45 CDT CPT-68258 Magnesium - LAB USE ONLY 09:41:00 CDT 12/09 CPT-38028 Renal Panel - LAB USE ONLY 09:41:00 CDT 201 09/17/01 CPT-83164 Venipuncture Draw Fee 09:41:00 CDT CPT-12197 Calcium - LAB USE ONLY 17:25:11 CDT CPT-J0897 Prolia 60 mg 15:10:59 CDT CPT-10620 Abx/Therapy Injection 15:10:59 CDT CPT-G0439 Subsequent Annual Wellness Exam 14:29:19 CDT CPT-59491 Venipuncture Draw Fee 10:59:04 CDT CPT-84206 CMP - LAB USE ONLY 10:59:04 CDT CPT-36810 CBC with Diff - LAB USE ONLY 10:59:03 CDT 2 CPT-J0897 Prolia 60 mg 15:46:54 RECYCLING TECH CPT-39959 Abx/Therapy Injection 15:46:54 RECYCLING TECH CPT-43652 Microalbumin - LAB USE ONLY 09:41:32 RECYCLING TECH 20 23/01/15 CPT-00010 Free T4 - LAB USE ONLY 09:41:32 RECYCLING TECH CPT-37918 TSH - LAB USE ONLY 09:41:32 RECYCLING TECH CPT-54595 BMP - LAB USE ONLY 09:41:32 RECYCLING TECH CPT-94305 Venipuncture Draw Fee 09:41:32 RECYCLING TECH CPT-49781 First Vx - Ix admin for Medicare patients 11:19:30 CDT CPT-30168 Fluzone High-Dose Intramuscular Suspension 12/07 11:19:30 CDT CPT-J0897 Prolia 60 mg 14:55:42 CDT CPT-85617 Abx/Therapy Injection 14:55:42 CDT CPT-97955 Bone Density - XRAY USE ONLY 10:27:12 CDT 2 CPT-G0439 Subsequent Annual Wellness Exam 17:54:53 CDT CPT-78808 Foot, left, comp min 3V - XRAY USE ONLY 12:22:49 CDT CPT-G0009 Administration of Pneumococcal Vaccine 3 12:18:00 CDT CPT-98375 Pneumovax 23 Injection Injectable 25 MCG /0.5ML 12:18:00 CDT CPT-J0897 Prolia 60 mg 14:14:16 RECYCLING TECH CPT-68840 Abx/Therapy Injection 14:14:15 RECYCLING TECH CPT-28899 Lipid - LAB USE ONLY 10:01:52 RECYCLING TECH 2 CPT-52560 Calcium - LAB USE ONLY 10:01:51 RECYCLING TECH CPT-49900 Venipuncture Draw Fee 10:01:51 RECYCLING TECH CPT-LR Lesion Removal 16:22:01 RECYCLING TECH CPT-18870 TSH - LAB USE ONLY 14:26:02 CDT CPT-84183 CMP - LAB USE ONLY 14:26:01 CDT CPT-93684 CBC with Diff - LAB USE ONLY 14:26:01 CDT 2 CPT-42127 Venipuncture Draw Fee 14:26:01 CDT CPT-25747 First Vx - Ix admin for Medicare patients 13:27:08 CDT CPT-64455 Fluzone High-Dose Intramuscular Suspension 11/26 13:27:08 CDT CPT-G0438 Initial Annual Wellness Exam 14:19:57 CD T CPT-G0009 Administration of Pneumococcal Vaccine 9 11:36:25 CDT CPT-38953 Prevnar 13 Intramuscular Suspension 1 1:36:25 CDT CPT-90954 Prevnar 13 Intramuscular Suspension 1 0:40:58 CDT CPT-J0897 Prolia 60 mg 10:37:16 CDT CPT-74706 Abx/Therapy Injection 10:37:16 CDT CPT-J0897 Prolia 60 mg 16:09:34 RECYCLING TECH CPT-J0897 Prolia 60 mg 11:10:35 RECYCLING TECH CPT-85046 Abx/Therapy Injection 11:10:35 RECYCLING TECH CPT-000 Give Appropriate Flu Vaccine 17:01:15 RECYCLING TECH 2 CPT-29575 Fluzone High Dose (65+) 15:03:08 RECYCLING TECH 02/15 CPT-84074 Immunization Single Admin 15:03:08 RECYCLING TECH 2014 CPT-OV Office Visit 15:58:06 CDT CPT-J0897 Prolia 60 mg 08:45:38 CDT CPT-21547 Abx/Therapy Injection 08:45:38 CDT CPT-J3420 Vitamin B12 1000mcg (Cyanocobalamin) 09:26:20 RECYCLING TECH CPT-46894 Abx/Therapy Injection 09:26:20 RECYCLING TECH CPT-J3420 Vitamin B12 1000mcg (Cyanocobalamin) 09:44:40 RECYCLING TECH CPT-36806 Abx/Therapy Injection 09:44:40 RECYCLING TECH CPT-J3420 Vitamin B12 1000mcg (Cyanocobalamin) 09:15:54 RECYCLING TECH CPT-66134 Abx/Therapy Injection 09:15:54 RECYCLING TECH CPT-J3420 Vitamin B12 1000mcg (Cyanocobalamin) 09:46:44 RECYCLING TECH CPT-95786 Abx/Therapy Injection 09:46:44 RECYCLING TECH CPT-J3420 Vitamin B12 1000mcg (Cyanocobalamin) 09:47:34 RECYCLING TECH CPT-01190 Abx/Therapy Injection 09:47:34 RECYCLING TECH CPT-J3420 Vitamin B12 1000mcg (Cyanocobalamin) 14:35:50 RECYCLING TECH CPT-J3420 Vitamin B12 1000mcg (Cyanocobalamin) 09:25:05 RECYCLING TECH CPT-23241 Abx/Therapy Injection 09:25:05 RECYCLING TECH CPT-G0008 Administration of Influenza Virus Vaccine 13:36:47 CDT CPT-81477 Fluzone High-Dose Intramuscular Suspension 11/15 13:36:47 CDT CPT-J0897 Prolia 60 mg 08:50:41 CDT CPT-92452 Abx/Therapy Injection 08:50:41 CDT CPT-11223 Bone Density 12:06:12 CDT CPT-40083 Bone Density 08:54:40 CDT CPT-OV Office Visit 15:37:02 CDT CPT-33797 Postop F/U Visit 15:47:49 CDT CPT-09659 Postop F/U Visit 15:21:02 CDT CPT-[facility] Transitional Care Mgmt-High 07:52:27 CDT 20 20/06/01 CPT-40437 Venipuncture Draw Fee 13:51:18 CDT CPT-09663 Venipuncture Draw Fee 10:14:55 RECYCLING TECH CPT-45472 Venipuncture Draw Fee 13:39:45 RECYCLING TECH CPT-OV Office Visit 15:11:22 RECYCLING TECH CPT-38947 Venipuncture Draw Fee 09:20:49 RECYCLING TECH CPT-67536 Venipuncture Draw Fee 16:52:15 RECYCLING TECH CPT-39396 Venipuncture Draw Fee 10:37:24 RECYCLING TECH CPT-63952 Venipuncture Draw Fee 08:21:21 RECYCLING TECH CPT-08630 Venipuncture Draw Fee 08:30:20 RECYCLING TECH CPT-21857 Venipuncture Draw Fee 14:53:21 RECYCLING TECH CPT-99770 Venipuncture Draw Fee 09:40:56 RECYCLING TECH CPT-52845 Venipuncture Draw Fee 10:30:47 RECYCLING TECH CPT-99141 Venipuncture Draw Fee 10:46:17 RECYCLING TECH CPT-48687 Venipuncture Draw Fee 11:12:45 RECYCLING TECH CPT-67548 Venipuncture Draw Fee 09:53:33 RECYCLING TECH CPT-94926 Venipuncture Draw Fee 11:53:51 RECYCLING TECH CPT-03115 Venipuncture Draw Fee 10:33:50 RECYCLING TECH CPT-36876 Venipuncture Draw Fee 10:05:01 RECYCLING TECH CPT-29722 Venipuncture Draw Fee 14:32:52 RECYCLING TECH CPT-85070 Venipuncture Draw Fee 09:46:13 RECYCLING TECH CPT-35450 Venipuncture Draw Fee 11:34:27 RECYCLING TECH CPT-61735 Venipuncture Draw Fee 13:17:16 RECYCLING TECH 2013/11/ 05 CPT-59733 Venipuncture Draw Fee 12:05:39 CDT CPT-15065 Venipuncture Draw Fee 12:49:12 CDT CPT-92864 Venipuncture Draw Fee 12:37:18 CDT CPT-62093 Venipuncture Draw Fee 10:57:11 CDT CPT-03840 Venipuncture Draw Fee 13:47:40 CDT CPT-39269 Venipuncture Draw Fee 10:02:17 CDT CPT-09820 TB Tubersol 17:32:32 CDT CPT-OV Office Visit 16:21:53 CDT CPT-OV Office Visit 15:49:22 CDT CPT-OV Office Visit 17:16:31 CDT CPT-OV Office Visit 10:43:31 CDT
--- OUTSIDE RECORDS SUMMARY | 2019-02-09 11:37 | XMS REPORT | Clinical Summary ---
Author Author Renaldo, Florecita Munoz Organization [facility] [employer] Address Unknown Phone Unavailable Allergies, Adverse Reactions, [...] PhD Hyperpotassemia GERD 530.81 Resolved Kylie Yokum FORENSICS TEAM DIRECTOR Esophageal reflux Health maintenance exam V70.0 Resolved Adolfo Yates MD Routine general medical examination at a health care facility Anemia 285.9 Resolved Kylie Yanet FORENSICS TEAM DIRECTOR Anemia, unspecified Personal history of malignant neoplasm of large intestine V10.05 Active Adam Yates MD Personal history of malignant neoplasm of large intestine Hypomagnesemia 275.2 Resolved Kylie Yanet FORENSICS TEAM DIRECTOR Disorders of magnesium metabolism Weakness 780.79 Resolved [...] Sebaceous cyst, scalp 706.2 Resolved Kylie Yokum FORENSICS TEAM DIRECTOR Sebaceous cyst Cervical lymphadenopathy, anterior, left 785.6 Resolv ed Kylie Yokum FORENSICS TEAM DIRECTOR Enlargement of lymph nodes Need for prophylactic vaccination and inoculation against in fluenza V04.81 Resolved Adam Yates MD Need for prophylactic vaccination and inoculation against influenza Preventive health care V70.0 Resolved Kylie Lundu m FORENSICS TEAM DIRECTOR Routine general medical examination at a health care facility Thyroid nodule, left 241.0 Resolved Selena Yates MD Nontoxic uninodular goiter Screening mammogram V76.12 Resolved Kylie Yokum A PRN Other screening mammogram Mandy 706.2 Resolved Kylie Yokum FORENSICS TEAM DIRECTOR Sebaceous cyst Colon cancer, ascending 153.6 Resolved Kylie Yok um FORENSICS TEAM DIRECTOR Malignant neoplasm of ascending colon Foot pain, left 729.5 Resolved Kylie Yokum FORENSICS TEAM DIRECTOR Pain in limb Splinter 919.6 Resolved Kylie Yokum FORENSICS TEAM DIRECTOR Superficial foreign body (splinter) of other, multiple, and unspecified sites, without major open wound and without mention of infection Rash 782.1 Resolved Kylie Yokum FORENSICS TEAM DIRECTOR Rash and other nonspecific skin eruption Cyst 706.2 Resolved Kylie Yokum FORENSICS TEAM DIRECTOR Sebaceous cyst Body Mass Index 23.0-23.9 Adult Refinement 2017 Kylie Yokum FORENSICS TEAM DIRECTOR Body Mass Index between 19-24, adult BMI [...] RIGHT LOWER QUADRANT ICD-789.03 Inactive Kina Joshua FORENSICS TEAM DIRECTOR ABDOMINAL PAIN, GENERALIZED ICD-789.07 Inactive Hope Benavidez MD PhD FEVER UNSPECIFIED ICD-780.60 Inactive Hope cohn MD PhD UNSPECIFIED VENOUS INSUFFICIENCY ICD-459.81 Elda ctive Adam Yates MD ADENOCARCINOMA, 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 Inac tizaynab Benavidez MD PhD Hyperkalemia ICD-276.7 Inactive Hope Benavidez MD PhD GERD ICD-530.81 Inactive Kylie Yanet FORENSICS TEAM DIRECTOR 2015 Health maintenance exam ICD-V70.0 Bam Yates MD Anemia ICD-285.9 Inactive Kylie Escalonapari FORENSICS TEAM DIRECTOR 07/24 Hypomagnesemia ICD-275.2 Inactive Kylie Holt FORENSICS TEAM DIRECTOR Weakness ICD-780.79 Inactive Hope Benavidez MD P hD ADENOCARCINOMA, COLON, 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 Dick Yates MD Asymptomatic postmenopausal status (age-related) (natural) I CD-V49.81 Inactive Hope Benavidez MD PhD Diarrhea, functional ICD-564.5 Bam Yates MD Dysuria ICD-788.1 Inactive Hope Benavidez MD PhD 201 05/19/01 Adenocarcinoma, ascending colon ICD-153.6 Eldac abdelrahman Yates MD Sebaceous cyst, scalp ICD-706.2 Inactive Tracy hi Yokum FORENSICS TEAM DIRECTOR Cervical lymphadenopathy, anterior, left ICD-785.6 Inactive Kylie Yokum FORENSICS TEAM DIRECTOR Need for prophylactic vaccination and inoculation against in fluenza ICD-V04.81 Inactive Adam Yates MD Preventive health care ICD-V70.0 Inactive Ka thi Yokum FORENSICS TEAM DIRECTOR Thyroid nodule, left ICD-241.0 Inactive Selena Yates MD Screening mammogram ICD-V76.12 Inactive Kylie Yokum FORENSICS TEAM DIRECTOR Mandy ICD-706.2 Inactive Kylie Yokum FORENSICS TEAM DIRECTOR 07/20 Colon cancer, ascending ICD-153.6 Inactive K athi Yokum FORENSICS TEAM DIRECTOR Foot pain, left ICD-729.5 Inactive Kylie Yokum FORENSICS TEAM DIRECTOR Splinter ICD-919.6 Inactive Kylie Yokum FORENSICS TEAM DIRECTOR 2017 Rash ICD-782.1 Inactive Kylie Yokum FORENSICS TEAM DIRECTOR 07/25 Aftercare following surgery of the teeth,oral cavity a nd digestive system, NEC ICD-V58.75 Inactive Adam Yates MD Colon cancer ICD-153.9 Bam luna MD Cyst ICD-706.2 Inactive Kylie Yokum FORENSICS TEAM DIRECTOR 08/11 Unspecified fall, initial encounter ICD-E888.9 Inactive Kylie Yokum FORENSICS TEAM DIRECTOR Eye pain, left ICD-379.91 Inactive Kylie Holt [...] other medications for hypothyroidism. LEVOTHYROX INE SODIUM 95304126760 Active Kylie Holt APRN Active VOLTAREN 1 % TRANSDERMAL GEL apply 2 grams q 6-8 hour to left arm as needed for pain DICLOFENAC SODIUM 40734187146 Active Kylie Holt APR N Active IMODIUM A-D 2 MG ORAL TABLET 1 tablet twice a day LOPERAMIDE HCL 85939980491 Active Kylie Holt APRN Active COQ10 100 MG ORAL CAPSULE 1 daily COENZYME Q10 001009 88988 Active LETY Nation Active VITAMIN D3 2000 UNIT ORAL CAPSULE Melaleuca-One daily CHOLECALCIFEROL 44411951916 Active Kylie Holt APRN Active PROBIOTIC DAILY ORAL CAPSULE Take one daily PROBIO TIC PRODUCT 73712053978 Active Kylie Holt APRN Active IRON 325 (65 Fe) MG ORAL TABLET 1 every other day FERROUS SULFATE 88848573200 No Longer Active Kylie Yokum FORENSICS TEAM DIRECTOR Active FLORANEX ORAL PACKET 1 pack three times daily, for bowel health LACTOBACILLUS 99227388612 No Longer Active Kylie Lundum FORENSICS TEAM DIRECTOR Active LOMOTIL 2.5-0.025 MG ORAL TABLET 1 tab by mouth prn 20 23/10/23 DIPHENOXYLATE-ATROPINE 15178197530 No Longer Active Kylie Yokum FORENSICS TEAM DIRECTOR Active MAGNESIUM GLUCONATE 250 MG ORAL TABLET 1 tab tid 23/10/23 MAGNESIUM GLUCONATE 36560969037 No Longer Active Kylie Yokum FORENSICS TEAM DIRECTOR Active CYANOCOBALAMIN 1000 MCG/ML INJECTION SOLUTION 1 injection ev ruben 2 weeks CYANOCOBALAMIN 36041760062 No Longer Active Kylie Lund um FORENSICS TEAM DIRECTOR Active ATENOLOL 25 MG ORAL TABLET 1/2 pill by mouth daily, fo r headaches, blood pressure ATENOLOL 52283395031 Active Kylie Escalonakum FORENSICS TEAM DIRECTOR Active PROPRANOLOL HCL 80 MG ORAL TABLET 1 tab tue. and thur. PROPRANOLOL HCL 53835346577 No Longer Active Hope Benavidez MD PhD A ctive VITAMIN D3 4000 IU 1 tab 3 times daily VITAMIN D3 4000 IU No Longer Active Hope Benavidez MD PhD Active BACTRIM DS 800-160 MG ORAL TABLET 1 pill by mouth twice claudio y, for UTI SULFAMETHOXAZOLE-TRIMETHOPRIM 27174646694 No Longer Active Hope Benavidez MD PhD Active PROLIA 60 MG/ML SUBCUTANEOUS SOLUTION 1 shot every 6 months for osteoprosis DENOSUMAB 29840205198 Active Hope Benavidez MD PhD Active CALCIUM + D + K 750-500-40 MG-UNT-MCG ORAL TABLET 1 tab by m out twice daily CALCIUM-VITAMIN D-VITAMIN K 06382443685 Active Hope valdez MD PhD Active DAILY VALUE MULTIVITAMIN ORAL TABLET 1 tab by mouth twice daily 201 05/16/14 MULTIPLE VITAMIN 32099331355 Active Hope Benavidez MD PhD Acti ve FISH OIL 306 MG CAPS 1 tab by mouth three times daily OMEGA-3 FATTY ACIDS 55218986005 Active Hope Benavidez MD PhD Active LUTEIN 10 MG ORAL TABLET 1 tab daily LUTEIN 51149632 408 Active Hope Benavidez MD PhD Active TRIAMTERENE-HCTZ 37.5-25 MG ORAL TABLET 1 tab by mouth daily 10/22 TRIAMTERENE-HCTZ 67049676103 Active Kylie Holt FORENSICS TEAM DIRECTOR Active CYCLOBENZAPRINE HCL 10 MG ORAL TABLET 1 tablet by mout h three times daily as needed for headaches CYCLOBENZAPRINE HCL 71499312398 No Longer Active Adam Yates MD Active OMEPRAZOLE 20 MG ORAL CAPSULE DELAYED RELEASE [address] [facility] daily for GERD OMEPRAZOLE 71856919396 No Longer Active Adam Yates MD Active ZOFRAN 8 MG ORAL TABLET 1 tab by mouth every 12 hours prn 4 ONDANSETRON HCL 29492313471 No Longer Active Adam Yates MD Active PHENADOZ 25 MG RECTAL SUPPOSITORY 1 every 4 hrs. PRN 2 PROMETHAZINE HCL 21890634908 No Longer Active Adam Yates MD A ctive POTASSIUM CHLORIDE 20 MEQ ORAL PACKET by mouth twice a day prn 2 POTASSIUM CHLORIDE 52575053788 No Longer Active Adam Carpenter MD Active PROMETHAZINE HCL 25 MG ORAL TABLET 1 Q. 4 hr. PRN PROMETHAZINE HCL 62814363711 No Longer Active Adam Yates MD Active INNOPRAN XL 120 MG ORAL CAPSULE EXTENDED RELEASE 24 HO UR Take one by mouth daily PROPRANOLOL HCL SR BEADS 12340950486 No Longer Active Adam Yates MD Active FLAGYL 500 MG ORAL TABLET 1 pill by mouth three times daily, for diarrhea METRONIDAZOLE 37962614136 No Longer Active Hope landers MD PhD Active DYAZIDE 37.5-25 MG ORAL CAPSULE 1 qd TRIA MTERENE-HCTZ 67655412224 No Longer Active Hope Benavidez MD PhD Active PROZAC 20 MG ORAL CAPSULE 1 q d FLUOXETINE HCL 56585155522 No Longer Active Hope Benavidez MD PhD Active SIMVASTATIN 40 MG ORAL TABLET 1 qd SIMVAS TATIN 91312514868 No Longer Active Adam Yates MD Active MELOXICAM 15 MG ORAL TABLET 1 qd MELOXICAM 34228173498 No Longer Active Adam Yates MD Active EXCEDRIN EXTRA STRENGTH 250-250-65 MG ORAL TABLET 1-2 q6h AL N headache [id number] 98443157020 Active Hope Benavidez MD PhD Active FLAGYL 500 MG ORAL TABLET 1 qid METRONIDAZOL E 89536724102 No Longer Active Adam Yates MD Active LEVAQUIN 750 MG ORAL TABLET 1 qd LEVOFLOXAC IN 20914965157 No Longer Active Adam Yates MD Active ADULT ASPIRIN LOW STRENGTH 81 MG ORAL TABLET DISINTEGRATING 1 qd ASPIRIN 42028385230 Active Hope Benavidez MD PhD Active LEVAQUIN 750 MG ORAL TABLET 1 qd LEVAQUIN 750 MG ORAL TABLET 407077 LEVOFLOXACIN Inactive FLAGYL 500 MG ORAL TABLET 1 qid FLAGYL 500 MG ORAL TABLET 220145 METRONIDAZOLE Inactive MELOXICAM 15 MG ORAL TABLET 1 qd MELOXICAM 15 MG ORAL TABLET 290221 MELOXICAM Inactive SIMVASTATIN 40 MG ORAL TABLET 1 qd SIMVASTATIN 40 MG ORAL TABLET 087790 SIMVASTATIN Inactive PROZAC 20 MG ORAL CAPSULE 1 q d PROZAC 20 MG ORAL CAPSULE 525415 FLUOXETINE HCL Inactive DYAZIDE 37.5-25 MG ORAL CAPSULE 1 qd 5 DYAZIDE 37.5-25 MG ORAL CAPSULE 405862 TRIAMTERENE-HCTZ Inactive INNOPRAN XL 120 MG ORAL CAPSULE EXTENDED RELEASE 24 HO UR Take one by mouth daily INNOPRAN XL 120 MG ORAL CAPSULE EXTENDED RELEASE 24 HOUR PROPRANOLOL HCL SR BEADS Inactive PROMETHAZINE HCL 25 MG ORAL TABLET 1 Q. 4 hr. PRN 2013 PROMETHAZINE HCL 25 MG ORAL TABLET 313255 PROMETHAZINE HCL Inactive POTASSIUM CHLORIDE 20 MEQ ORAL PACKET by mouth twice a day prn 2 POTASSIUM CHLORIDE 20 MEQ ORAL PACKET 0943187 POTASSIUM CHLORIDE Inactive PHENADOZ 25 MG RECTAL SUPPOSITORY 1 every 4 hrs. PRN 2 PHENADOZ 25 MG RECTAL SUPPOSITORY 474199 PROMETHAZINE HCL Inactive ZOFRAN 8 MG ORAL TABLET 1 tab by mouth every 12 hours prn 4 ZOFRAN 8 MG ORAL TABLET 748239 ONDANSETRON HCL Inactive OMEPRAZOLE 20 MG ORAL CAPSULE DELAYED RELEASE 1 tablet by mo uth daily for GERD OMEPRAZOLE 20 MG ORAL CAPSULE DELAYED RELEASE 19 8051 OMEPRAZOLE Inactive CYCLOBENZAPRINE HCL 10 MG ORAL TABLET 1 tablet by mout h three times daily as needed for headaches CYCLOBENZAPRINE HCL 10 MG ORAL TABLET 041701 CYCLOBENZAPRINE HCL Inactive VITAMIN D3 4000 IU 1 tab 3 times daily VITAMIN D3 4000 IU Inactive PROPRANOLOL HCL 80 MG ORAL TABLET 1 tab tue. and thur. PROPRANOLOL HCL 80 MG ORAL TABLET 773073 PROPRANOLOL HCL Inacti ve CYANOCOBALAMIN 1000 MCG/ML INJECTION SOLUTION 1 injection ev ruben 2 weeks CYANOCOBALAMIN 1000 MCG/ML INJECTION SOLUTION 30 9594 CYANOCOBALAMIN Inactive MAGNESIUM GLUCONATE 250 MG ORAL TABLET 1 tab tid 23/10/23 MAGNESIUM GLUCONATE 250 MG ORAL TABLET 053534 MAGNESIUM GLUCONATE Inactive LOMOTIL 2.5-0.025 MG ORAL TABLET 1 tab by mouth prn 20 23/10/23 LOMOTIL 2.5-0.025 MG ORAL TABLET 8366440 DIPHENOXYLATE-ATROPINE Inac tive FLORANEX ORAL PACKET 1 pack three times daily, for bowel health FLORANEX ORAL PACKET 83798464819 LACTOBACILLUS Inactive IRON 325 (65 Fe) MG ORAL TABLET 1 every other day 2015 IRON 325 (65 Fe) MG ORAL TABLET 448884 FERROUS SULFATE Inactive FLAGYL 500 MG ORAL TABLET 1 pill by mouth three times daily, for diarrhea FLAGYL 500 MG ORAL TABLET 240732 METRONIDAZOLE I nactive BACTRIM DS 800-160 MG ORAL TABLET 1 pill by mouth twice claudio y, for UTI BACTRIM DS 800-160 MG ORAL TABLET 893139 SULFAMETHOXAZOLE-TRIMETHOPRIM Inactive Advance Directives Directive Description Start [...] ... - Chemistry cholesterol, serum 211 mg/dL 769-576 1563/01/10 triglyceride, serum, fasting 77 mg/dL 30-200 HDL cholesterol, serum 70 mg/dL 32-60 LDL cholesterol, serum 126 mg/dL 0-130 TSH 1.19 m[iU]/mL 0.36-3.74 sodium, serum 141 mmol/L 367-823 6768/01/10 potassium, serum 3.7 mmol/L 3.5-5.2 chloride, serum [...] ... - Chemistry sodium, serum 142 mmol/L 569-763 3371/04/16 carbon dioxide, venous blood 30.0 mmol/L 21.0-32 [...] 50-136 Lab Report: Free Thyroxine (L) - [employer] ry thyroxine, serum, free 0.82 ng/dL 0.59-1.17 Lab Report: Thyroid Stimulating Hormone (L), Free Thyroxine (L) - Chemistry TSH 13.85 m[iU]/mL 0.36-3.74 thyroxine, serum, free 0.65 ng/dL 0.59-1.17 TSH 13.59 m[iU]/mL 0.36-3.74 thyroxine, serum, free 0.47 ng/dL 0.59-1.17 Encounters Code Encounter Date Provider Facility CPT-86145 [id number] Vst-Est Level III 09:15:19 CDT Fiorella Holt [facility] CPT-47629 Level 4 Est. Patient 15:35:24 INDUSTRIAL TRAINER Adam Yates MD [facility] CPT-22270 Level 3 New Patient 12:08:54 INDUSTRIAL TRAINER Adam Yates MD [facility] CPT-91123 [id number] Vst-Est Level IV 19:48:30 INDUSTRIAL TRAINER Tracy Holt [facility] CPT-40957 [id number] Vst-Est Level III 14:29:19 [facility] [place] [facility] Level 2 Est. Patient 14:58:26 CDT Kylie Lund [facility] CPT-42568 Level 3 Est. Patient 08:15:24 INDUSTRIAL TRAINER Kylie Lund [facility] CPT-89748 Level 2 Est. Patient 14:27:16 INDUSTRIAL TRAINER Kylie Escalonagabbi oliver [facility] CPT-96651 Level 3 Est. Patient 17:54:48 CDT Kylie boyd [facility] CPT-30022 Level 3 Est. Patient 16:26:30 CDT Kinachrista blackmon [facility] CPT-07465 Level 3 New Patient 16:22:01 INDUSTRIAL TRAINER Adam Yates MD [facility] CPT-91074 Level 4 Est. Patient 17:00:48 CDT Kylie Kevon [facility] CPT-81736 Level 3 Est. Patient 13:15:54 CDT Kylie boyd [facility] CPT-26242 Level 3 Est. Patient 09:10:11 CDT Kylie boyd [facility] CPT-56261 Level 4 Est. Patient 12:08:30 INDUSTRIAL TRAINER Hope cohn MD [facility] CPT-44668 Level 4 Est. Patient 19:08:42 INDUSTRIAL TRAINER Hope cohn MD [facility] CPT-71919 Level 4 Est. Patient 20:04:51 CDT Hope cohn MD [facility] CPT-84306 Level 3 New Patient 01:46:11 INDUSTRIAL TRAINER Hope landers MD [facility] Procedures Code Procedure Name Date Entry Date Standard Desc ription CPT-G0008 Administration of Influenza Virus Vaccine 15:08:32 CDT CPT-15157 Flublok Quadrivalent (Flu) Syringe IM(Sd dicare) 15:08:32 CDT CPT-85485 Venipuncture Draw Fee 10:06:15 CDT CPT-37071 Bone Density - XRAY USE ONLY 11:51:35 CDT 2 CPT-58079 Free T4 - LAB USE ONLY 11:44:37 CDT CPT-89036 TSH - LAB USE ONLY 11:44:37 CDT CPT-99960 Venipuncture Draw Fee 11:44:37 CDT CPT-J0897 Prolia 60 mg 10:36:55 CDT CPT-62941 Abx/Therapy Injection 10:36:55 CDT CPT-40834 Venipuncture Draw Fee 13:34:11 CDT CPT-G0439 [facility] Annual Wellness Exam 09:15:19 CDT CPT-43943 Postop F/U Visit 15:45:41 CDT CPT-63781 Sono Soft Tissue Head and Neck - XRAY US E ONLY 11:56:06 INDUSTRIAL TRAINER CPT-72209 Abx/Therapy Injection 09:40:08 INDUSTRIAL TRAINER CPT-J0897 Prolia 60 mg 09:40:08 INDUSTRIAL TRAINER CPT-57558 First Vx - Ix admin for Medicare patients 02/08 10:02:45 CDT CPT-12870 Fluzone Quadrivalent Intramuscular Suspe nsion 0.5 ML 10:02:45 CDT CPT-04069 Magnesium - LAB USE ONLY 09:41:00 CDT 12/09 CPT-17541 Renal Panel - LAB USE ONLY 09:41:00 CDT 201 09/17/01 CPT-69664 Venipuncture Draw Fee 09:41:00 CDT CPT-46470 Calcium - LAB USE ONLY 17:25:11 CDT CPT-J0897 Prolia 60 mg 15:10:59 CDT CPT-54390 Abx/Therapy Injection 15:10:59 CDT CPT-G0439 Subsequent Annual Wellness Exam 14:29:19 CDT CPT-84993 Venipuncture Draw Fee 10:59:04 CDT CPT-53558 CMP - LAB USE ONLY 10:59:04 CDT CPT-34769 CBC with Diff - LAB USE ONLY 10:59:03 CDT 2 CPT-J0897 Prolia 60 mg 15:46:54 INDUSTRIAL TRAINER CPT-36141 Abx/Therapy Injection 15:46:54 INDUSTRIAL TRAINER CPT-49277 Microalbumin - LAB USE ONLY 09:41:32 INDUSTRIAL TRAINER 20 23/01/15 CPT-67926 Free T4 - LAB USE ONLY 09:41:32 INDUSTRIAL TRAINER CPT-03151 TSH - LAB USE ONLY 09:41:32 INDUSTRIAL TRAINER CPT-04016 BMP - LAB USE ONLY 09:41:32 INDUSTRIAL TRAINER CPT-97891 Venipuncture Draw Fee 09:41:32 INDUSTRIAL TRAINER CPT-21966 First Vx - Ix admin for Medicare patients 11:19:30 CDT CPT-05796 Fluzone High-Dose Intramuscular Suspension 12/07 11:19:30 CDT CPT-J0897 Prolia 60 mg 14:55:42 CDT CPT-47638 Abx/Therapy Injection 14:55:42 CDT CPT-97368 Bone Density - XRAY USE ONLY 10:27:12 CDT 2 CPT-G0439 Subsequent Annual Wellness Exam 17:54:53 CDT CPT-69689 Foot, left, comp min 3V - XRAY USE ONLY 12:22:49 CDT CPT-G0009 Administration of Pneumococcal Vaccine 3 12:18:00 CDT CPT-13101 Pneumovax 23 Injection Injectable 25 MCG /0.5ML 12:18:00 CDT CPT-J0897 Prolia 60 mg 14:14:16 INDUSTRIAL TRAINER CPT-45677 Abx/Therapy Injection 14:14:15 INDUSTRIAL TRAINER CPT-78099 Lipid - LAB USE ONLY 10:01:52 INDUSTRIAL TRAINER 2 CPT-63964 Calcium - LAB USE ONLY 10:01:51 INDUSTRIAL TRAINER CPT-34300 Venipuncture Draw Fee 10:01:51 INDUSTRIAL TRAINER CPT-LR Lesion Removal 16:22:01 INDUSTRIAL TRAINER CPT-23219 TSH - LAB USE ONLY 14:26:02 CDT CPT-00948 CMP - LAB USE ONLY 14:26:01 CDT CPT-26295 CBC with Diff - LAB USE ONLY 14:26:01 CDT 2 CPT-99899 Venipuncture Draw Fee 14:26:01 CDT CPT-98971 First Vx - Ix admin for Medicare patients 13:27:08 CDT CPT-28032 Fluzone High-Dose Intramuscular Suspension 11/26 13:27:08 CDT CPT-G0438 Initial Annual Wellness Exam 14:19:57 CD T CPT-G0009 Administration of Pneumococcal Vaccine 9 11:36:25 CDT CPT-90175 Prevnar 13 Intramuscular Suspension 1 1:36:25 CDT CPT-21716 Prevnar 13 Intramuscular Suspension 1 0:40:58 CDT CPT-J0897 Prolia 60 mg 10:37:16 CDT CPT-08019 Abx/Therapy Injection 10:37:16 CDT CPT-J0897 Prolia 60 mg 16:09:34 INDUSTRIAL TRAINER CPT-J0897 Prolia 60 mg 11:10:35 INDUSTRIAL TRAINER CPT-87086 Abx/Therapy Injection 11:10:35 INDUSTRIAL TRAINER CPT-000 Give Appropriate Flu Vaccine 17:01:15 INDUSTRIAL TRAINER 2 CPT-54405 Fluzone High Dose (65+) 15:03:08 INDUSTRIAL TRAINER 02/15 CPT-63244 Immunization Single Admin 15:03:08 INDUSTRIAL TRAINER 2014 CPT-OV Office Visit 15:58:06 CDT CPT-J0897 Prolia 60 mg 08:45:38 CDT CPT-85456 Abx/Therapy Injection 08:45:38 CDT CPT-J3420 Vitamin B12 1000mcg (Cyanocobalamin) 09:26:20 INDUSTRIAL TRAINER CPT-71405 Abx/Therapy Injection 09:26:20 INDUSTRIAL TRAINER CPT-J3420 Vitamin B12 1000mcg (Cyanocobalamin) 09:44:40 INDUSTRIAL TRAINER CPT-11083 Abx/Therapy Injection 09:44:40 INDUSTRIAL TRAINER CPT-J3420 Vitamin B12 1000mcg (Cyanocobalamin) 09:15:54 INDUSTRIAL TRAINER CPT-01050 Abx/Therapy Injection 09:15:54 INDUSTRIAL TRAINER CPT-J3420 Vitamin B12 1000mcg (Cyanocobalamin) 09:46:44 INDUSTRIAL TRAINER CPT-02332 Abx/Therapy Injection 09:46:44 INDUSTRIAL TRAINER CPT-J3420 Vitamin B12 1000mcg (Cyanocobalamin) 09:47:34 INDUSTRIAL TRAINER CPT-15251 Abx/Therapy Injection 09:47:34 INDUSTRIAL TRAINER CPT-J3420 Vitamin B12 1000mcg (Cyanocobalamin) 14:35:50 INDUSTRIAL TRAINER CPT-J3420 Vitamin B12 1000mcg (Cyanocobalamin) 09:25:05 INDUSTRIAL TRAINER CPT-07982 Abx/Therapy Injection 09:25:05 INDUSTRIAL TRAINER CPT-G0008 Administration of Influenza Virus Vaccine 13:36:47 CDT CPT-82418 Fluzone High-Dose Intramuscular Suspension 11/15 13:36:47 CDT CPT-J0897 Prolia 60 mg 08:50:41 CDT CPT-44209 Abx/Therapy Injection 08:50:41 CDT CPT-18571 Bone Density 12:06:12 CDT CPT-61709 Bone Density 08:54:40 CDT CPT-OV Office Visit 15:37:02 CDT CPT-60727 Postop F/U Visit 15:47:49 CDT CPT-78004 Postop F/U Visit 15:21:02 CDT CPT-TCM Transitional Care Mgmt-High 07:52:27 CDT 20 20/06/01 CPT-38638 Venipuncture Draw Fee 13:51:18 CDT CPT-47289 Venipuncture Draw Fee 10:14:55 INDUSTRIAL TRAINER CPT-07215 Venipuncture Draw Fee 13:39:45 INDUSTRIAL TRAINER CPT-OV Office Visit 15:11:22 INDUSTRIAL TRAINER CPT-67124 Venipuncture Draw Fee 09:20:49 INDUSTRIAL TRAINER CPT-88127 Venipuncture Draw Fee 16:52:15 INDUSTRIAL TRAINER CPT-29762 Venipuncture Draw Fee 10:37:24 INDUSTRIAL TRAINER CPT-60944 Venipuncture Draw Fee 08:21:21 INDUSTRIAL TRAINER CPT-98302 Venipuncture Draw Fee 08:30:20 INDUSTRIAL TRAINER CPT-35995 Venipuncture Draw Fee 14:53:21 INDUSTRIAL TRAINER CPT-17190 Venipuncture Draw Fee 09:40:56 INDUSTRIAL TRAINER CPT-71241 Venipuncture Draw Fee 10:30:47 INDUSTRIAL TRAINER CPT-09953 Venipuncture Draw Fee 10:46:17 INDUSTRIAL TRAINER CPT-68580 Venipuncture Draw Fee 11:12:45 INDUSTRIAL TRAINER CPT-23595 Venipuncture Draw Fee 09:53:33 INDUSTRIAL TRAINER CPT-77927 Venipuncture Draw Fee 11:53:51 INDUSTRIAL TRAINER CPT-03358 Venipuncture Draw Fee 10:33:50 INDUSTRIAL TRAINER CPT-83403 Venipuncture Draw Fee 10:05:01 INDUSTRIAL TRAINER CPT-26382 Venipuncture Draw Fee 14:32:52 INDUSTRIAL TRAINER CPT-22840 Venipuncture Draw Fee 09:46:13 INDUSTRIAL TRAINER CPT-29546 Venipuncture Draw Fee 11:34:27 INDUSTRIAL TRAINER CPT-97340 Venipuncture Draw Fee 13:17:16 INDUSTRIAL TRAINER CPT-87775 Venipuncture Draw Fee 12:05:39 CDT CPT-81130 Venipuncture Draw Fee 12:49:12 CDT CPT-95484 Venipuncture Draw Fee 12:37:18 CDT CPT-57866 Venipuncture Draw Fee 10:57:11 CDT CPT-06185 Venipuncture Draw Fee 13:47:40 CDT CPT-62105 Venipuncture Draw Fee 10:02:17 CDT CPT-92986 TB Tubersol 17:32:32 CDT CPT-OV Office Visit 16:21:53 CDT CPT-OV Office Visit 15:49:22 CDT CPT-OV Office Visit 17:16:31 CDT CPT-OV Office Visit 10:43:31 CDT
--- OUTSIDE RECORDS SUMMARY | 2019-02-09 11:38 | XMS REPORT | Clinical Summary ---
Author Author Renaldo, Florecita Munoz Organization [facility] [employer] Address Unknown Phone Unavailable Allergies, Adverse Reactions, [...] PhD Hyperpotassemia GERD 530.81 Resolved Kylie Yokum LEGAL OFFICER Esophageal reflux Health maintenance exam V70.0 Resolved Adolfo Yates MD Routine general medical examination at a health care facility Anemia 285.9 Resolved Kylie Yanet LEGAL OFFICER Anemia, unspecified Personal history of malignant neoplasm of large intestine V10.05 Active Adam Yates MD Personal history of malignant neoplasm of large intestine Hypomagnesemia 275.2 Resolved Kylie Yanet LEGAL OFFICER Disorders of magnesium metabolism Weakness 780.79 Resolved [...] Sebaceous cyst, scalp 706.2 Resolved Kylie Yokum LEGAL OFFICER Sebaceous cyst Cervical lymphadenopathy, anterior, left 785.6 Resolv ed Kylie Yokum LEGAL OFFICER Enlargement of lymph nodes Need for prophylactic vaccination and inoculation against in fluenza V04.81 Resolved Adam Yates MD Need for prophylactic vaccination and inoculation against influenza Preventive health care V70.0 Resolved Kylie Lundu m LEGAL OFFICER Routine general medical examination at a health care facility Thyroid nodule, left 241.0 Resolved Selena Yates MD Nontoxic uninodular goiter Screening mammogram V76.12 Resolved Kylie Yokum A PRN Other screening mammogram Mandy 706.2 Resolved Kylie Yokum LEGAL OFFICER Sebaceous cyst Colon cancer, ascending 153.6 Resolved Kylie Yok um LEGAL OFFICER Malignant neoplasm of ascending colon Foot pain, left 729.5 Resolved Kylie Yokum LEGAL OFFICER Pain in limb Splinter 919.6 Resolved Kylie Yokum LEGAL OFFICER Superficial foreign body (splinter) of other, multiple, and unspecified sites, without major open wound and without mention of infection Rash 782.1 Resolved Kylie Yokum LEGAL OFFICER Rash and other nonspecific skin eruption Cyst 706.2 Resolved Kylie Yokum LEGAL OFFICER Sebaceous cyst Body Mass Index 23.0-23.9 Adult Refinement 2017 Kylie Yokum LEGAL OFFICER Body Mass Index between 19-24, adult BMI [...] RIGHT LOWER QUADRANT ICD-789.03 Inactive Kina Joshua LEGAL OFFICER ADENOCARCINOMA, COLON, 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 Dick Yates MD ABDOMINAL PAIN, GENERALIZED ICD-789.07 Inactive Hope Benavidez MD PhD FEVER UNSPECIFIED ICD-780.60 Inactive Hope cohn MD PhD UNSPECIFIED VENOUS INSUFFICIENCY ICD-459.81 Elda ctive Adam Yates MD ADENOCARCINOMA, 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 Inac tive Hope Benavidez MD PhD Hyperkalemia ICD-276.7 Inactive Hope Benavidez MD PhD GERD ICD-530.81 Inactive Kylieshubham Holt LEGAL OFFICER 2015 Health maintenance exam ICD-V70.0 Bam Yates MD Anemia ICD-285.9 Inactive Kylieshubham Holt LEGAL OFFICER 07/24 Hypomagnesemia ICD-275.2 Inactive Kylie Holt LEGAL OFFICER Weakness ICD-780.79 Inactive Hope Benavidez MD P [...] cyst, scalp ICD-706.2 Inactive Tracy hi Yokum LEGAL OFFICER Cervical lymphadenopathy, anterior, left ICD-785.6 Inactive Kylie Yokum LEGAL OFFICER Need for prophylactic vaccination and inoculation against in fluenza ICD-V04.81 Inactive Adam Yates MD Preventive health care ICD-V70.0 Inactive Ka thi Yokum LEGAL OFFICER Thyroid nodule, left ICD-241.0 Inactive Selena Yates MD Screening mammogram ICD-V76.12 Inactive Kylie Yokum LEGAL OFFICER Mandy ICD-706.2 Inactive Kylie Yokum LEGAL OFFICER 07/20 Colon cancer, ascending ICD-153.6 Inactive K athi Yokum LEGAL OFFICER Foot pain, left ICD-729.5 Inactive Kylie Yokum LEGAL OFFICER Splinter ICD-919.6 Inactive Kylie Yokum LEGAL OFFICER 2017 Rash ICD-782.1 Inactive Kylie Yokum LEGAL OFFICER 07/25 Cyst ICD-706.2 Inactive Kylie Yokum LEGAL OFFICER 08/11 Unspecified fall, initial encounter ICD-E888.9 Inactive Kylie Yokum LEGAL OFFICER Eye pain, left ICD-379.91 Inactive Kylie Holt [...] other medications for hypothyroidism. LEVOTHYROX INE SODIUM 02810378680 Active Kylie Holt APRN Active VOLTAREN 1 % TRANSDERMAL GEL apply 2 grams q 6-8 hour to left arm as needed for pain DICLOFENAC SODIUM 03948904602 Active Kylie Holt APR N Active IMODIUM A-D 2 MG ORAL TABLET 1 tablet twice a day LOPERAMIDE HCL 60886204990 Active Kylie Holt APRN Active COQ10 100 MG ORAL CAPSULE 1 daily COENZYME Q10 334819 14829 Active LETY Nation Active VITAMIN D3 2000 UNIT ORAL CAPSULE Melaleuca-One daily CHOLECALCIFEROL 51977063339 Active Kylie Holt APRN Active PROBIOTIC DAILY ORAL CAPSULE Take one daily PROBIO TIC PRODUCT 24406229059 Active Kylie Holt APRN Active IRON 325 (65 Fe) MG ORAL TABLET 1 every other day FERROUS SULFATE 02123541910 No Longer Active Kylie Yokum LEGAL OFFICER Active FLORANEX ORAL PACKET 1 pack three times daily, for bowel health LACTOBACILLUS 09708450825 No Longer Active Kylie Yokum LEGAL OFFICER Active LOMOTIL 2.5-0.025 MG ORAL TABLET 1 tab by mouth prn 20 23/10/23 DIPHENOXYLATE-ATROPINE 63579001110 No Longer Active Kylie Yokum LEGAL OFFICER Active MAGNESIUM GLUCONATE 250 MG ORAL TABLET 1 tab tid 23/10/23 MAGNESIUM GLUCONATE 35091722557 No Longer Active Kylie Yokum LEGAL OFFICER Active CYANOCOBALAMIN 1000 MCG/ML INJECTION SOLUTION 1 injection ev ruben 2 weeks CYANOCOBALAMIN 10290584084 No Longer Active Kylie Yok um LEGAL OFFICER Active ATENOLOL 25 MG ORAL TABLET 1/2 pill by mouth daily, fo r headaches, blood pressure ATENOLOL 41613265514 Active Kylie Yokum LEGAL OFFICER Active PROPRANOLOL HCL 80 MG ORAL TABLET 1 tab tue. and thur. PROPRANOLOL HCL 57460156611 No Longer Active Hope Benavidez MD PhD A ctive VITAMIN D3 4000 IU 1 tab 3 times daily VITAMIN D3 4000 IU No Longer Active Hope Benavidez MD PhD Active BACTRIM DS 800-160 MG ORAL TABLET 1 pill by mouth twice claudio y, for UTI SULFAMETHOXAZOLE-TRIMETHOPRIM 61397726296 No Longer Active Hope Benavidez MD PhD Active PROLIA 60 MG/ML SUBCUTANEOUS SOLUTION 1 shot every 6 months for osteoprosis DENOSUMAB 35456120416 Active Hope Benavidez MD PhD Active CALCIUM + D + K 750-500-40 MG-UNT-MCG ORAL TABLET 1 tab by m outh twice daily CALCIUM-VITAMIN D-VITAMIN K 05979055149 Active Hope valdez MD PhD Active DAILY VALUE MULTIVITAMIN ORAL TABLET 1 tab by mouth twice daily 201 05/16/14 MULTIPLE VITAMIN 37177121750 Active Hope Benavidez MD PhD Acti ve FISH OIL 306 MG CAPS 1 tab by mouth three times daily OMEGA-3 FATTY ACIDS 70756248286 Active Hope Benavidez MD PhD Active LUTEIN 10 MG ORAL TABLET 1 tab daily LUTEIN 51108329 408 Active Hope Benavidez MD PhD Active TRIAMTERENE-HCTZ 37.5-25 MG ORAL TABLET 1 tab by mouth daily 10/22 TRIAMTERENE-HCTZ 55264310216 Active Kylie Holt LEGAL OFFICER Active CYCLOBENZAPRINE HCL 10 MG ORAL TABLET 1 tablet by mout h three times daily as needed for headaches CYCLOBENZAPRINE HCL 88862868003 No Longer Active Adam Yates MD Active OMEPRAZOLE 20 MG ORAL CAPSULE DELAYED RELEASE 1 tablet by mo [facility] daily for GERD OMEPRAZOLE 88508248073 No Longer Active Adam Yates MD Active ZOFRAN 8 MG ORAL TABLET 1 tab by mouth every 12 hours prn 4 ONDANSETRON HCL 63770724298 No Longer Active Adam Yates MD Active PHENADOZ 25 MG RECTAL SUPPOSITORY 1 every 4 hrs. PRN 2 PROMETHAZINE HCL 71088690796 No Longer Active Adam Yates MD A ctive POTASSIUM CHLORIDE 20 MEQ ORAL PACKET by mouth twice a day prn 2 POTASSIUM CHLORIDE 52397791787 No Longer Active Adam Carpenter MD Active PROMETHAZINE HCL 25 MG ORAL TABLET 1 Q. 4 hr. PRN PROMETHAZINE HCL 26086281848 No Longer Active Adam Yates MD Active INNOPRAN XL 120 MG ORAL CAPSULE EXTENDED RELEASE 24 HO UR Take one by mouth daily PROPRANOLOL HCL SR BEADS 26479524537 No Longer Active Adam Yates MD Active FLAGYL 500 MG ORAL TABLET 1 pill by mouth three times daily, for diarrhea METRONIDAZOLE 41894943159 No Longer Active Hope landers MD PhD Active DYAZIDE 37.5-25 MG ORAL CAPSULE 1 qd TRIA MTERENE-HCTZ 39129122204 No Longer Active Hope Benavidez MD PhD Active PROZAC 20 MG ORAL CAPSULE 1 q d FLUOXETINE HCL 47608544559 No Longer Active Hope Benavidez MD PhD Active SIMVASTATIN 40 MG ORAL TABLET 1 qd SIMVAS TATIN 39651521240 No Longer Active Adam Yates MD Active MELOXICAM 15 MG ORAL TABLET 1 qd MELOXICAM 05664224938 No Longer Active Adam Yates MD Active EXCEDRIN EXTRA STRENGTH 250-250-65 MG ORAL TABLET 1-2 q6h SD N headache [id number] 08325493748 Active Hope Benavidez MD PhD Active FLAGYL 500 MG ORAL TABLET 1 qid METRONIDAZOL E 40979621175 No Longer Active Adam Yates MD Active LEVAQUIN 750 MG ORAL TABLET 1 qd LEVOFLOXAC IN 79131600592 No Longer Active Adam Yates MD Active ADULT ASPIRIN LOW STRENGTH 81 MG ORAL TABLET DISINTEGRATING 1 qd ASPIRIN 04623667435 Active Hope Benavidez MD PhD Active LEVAQUIN 750 MG ORAL TABLET 1 qd LEVAQUIN 750 MG ORAL TABLET 037082 LEVOFLOXACIN Inactive FLAGYL 500 MG ORAL TABLET 1 qid FLAGYL 500 MG ORAL TABLET 513584 METRONIDAZOLE Inactive MELOXICAM 15 MG ORAL TABLET 1 qd MELOXICAM 15 MG ORAL TABLET 129594 MELOXICAM Inactive SIMVASTATIN 40 MG ORAL TABLET 1 qd SIMVASTATIN 40 MG ORAL TABLET 369460 SIMVASTATIN Inactive PROZAC 20 MG ORAL CAPSULE 1 q d PROZAC 20 MG ORAL CAPSULE 670406 FLUOXETINE HCL Inactive DYAZIDE 37.5-25 MG ORAL CAPSULE 1 qd 5 DYAZIDE 37.5-25 MG ORAL CAPSULE 418427 TRIAMTERENE-HCTZ Inactive INNOPRAN XL 120 MG ORAL CAPSULE EXTENDED RELEASE 24 HO UR Take one by mouth daily INNOPRAN XL 120 MG ORAL CAPSULE EXTENDED RELEASE 24 HOUR PROPRANOLOL HCL SR BEADS Inactive PROMETHAZINE HCL 25 MG ORAL TABLET 1 Q. 4 hr. PRN 2013 PROMETHAZINE HCL 25 MG ORAL TABLET 444449 PROMETHAZINE HCL Inactive POTASSIUM CHLORIDE 20 MEQ ORAL PACKET by mouth twice a day prn 2 POTASSIUM CHLORIDE 20 MEQ ORAL PACKET 3331588 POTASSIUM CHLORIDE Inactive PHENADOZ 25 MG RECTAL SUPPOSITORY 1 every 4 hrs. PRN 2 PHENADOZ 25 MG RECTAL SUPPOSITORY 174877 PROMETHAZINE HCL Inactive ZOFRAN 8 MG ORAL TABLET 1 tab by mouth every 12 hours prn 4 ZOFRAN 8 MG ORAL TABLET 057524 ONDANSETRON HCL Inactive OMEPRAZOLE 20 MG ORAL CAPSULE DELAYED RELEASE 1 tablet by mo ut daily for GERD OMEPRAZOLE 20 MG ORAL CAPSULE DELAYED RELEASE 19 8051 OMEPRAZOLE Inactive CYCLOBENZAPRINE HCL 10 MG ORAL TABLET 1 tablet by mout h three times daily as needed for headaches CYCLOBENZAPRINE HCL 10 MG ORAL TABLET 882788 CYCLOBENZAPRINE HCL Inactive VITAMIN D3 4000 IU 1 tab 3 times daily VITAMIN D3 4000 IU Inactive PROPRANOLOL HCL 80 MG ORAL TABLET 1 tab tue. and thur. PROPRANOLOL HCL 80 MG ORAL TABLET 291006 PROPRANOLOL HCL Inacti ve CYANOCOBALAMIN 1000 MCG/ML INJECTION SOLUTION 1 injection ev ruben 2 weeks CYANOCOBALAMIN 1000 MCG/ML INJECTION SOLUTION 30 9594 CYANOCOBALAMIN Inactive MAGNESIUM GLUCONATE 250 MG ORAL TABLET 1 tab tid 23/10/23 MAGNESIUM GLUCONATE 250 MG ORAL TABLET 603299 MAGNESIUM GLUCONATE Inactive LOMOTIL 2.5-0.025 MG ORAL TABLET 1 tab by mouth prn 20 23/10/23 LOMOTIL 2.5-0.025 MG ORAL TABLET 2256029 DIPHENOXYLATE-ATROPINE Inac tive FLORANEX ORAL PACKET 1 pack three times daily, for bowel health FLORANEX ORAL PACKET 23986985842 LACTOBACILLUS Inactive IRON 325 (65 Fe) MG ORAL TABLET 1 every other day 2015 IRON 325 (65 Fe) MG ORAL TABLET 372857 FERROUS SULFATE Inactive FLAGYL 500 MG ORAL TABLET 1 pill by mouth three times daily, for diarrhea FLAGYL 500 MG ORAL TABLET 580676 METRONIDAZOLE I nactive BACTRIM DS 800-160 MG ORAL TABLET 1 pill by mouth twice claudio y, for UTI BACTRIM DS 800-160 MG ORAL TABLET 864640 SULFAMETHOXAZOLE-TRIMETHOPRIM Inactive Advance Directives Directive Description Start [...] ... - Chemistry sodium, serum 141 mmol/L 862-951 5147/01/10 potassium, serum 3.7 mmol/L 3.5-5.2 chloride, serum 101 mmol/L 98-107 carbon dioxide, venous blood 31.0 mmol/L 21.0-32 .0 blood glucose 96 mg/dL 65-95 calcium, serum 9.5 mg/dL 8.5-10.1 urea nitrogen, blood 21 mg/dL 7-18 creatinine, serum 1.40 mg/dL 0.60-1.30 Estimated Glomerular Filtration Rate (calc) 39 (?) mL/min/1.73m2 = OR > 60 mL/min cholesterol, serum 211 mg/dL 631-415 3777/01/10 triglyceride, serum, fasting 77 mg/dL 30-200 HDL [...] 0.82 ng/dL 0.59-1.17 sodium, serum 142 mmol/L 224-285 2589/04/16 carbon dioxide, venous blood 30.0 mmol/L 21.0-32 [...] 50-136 Lab Report: Free Thyroxine (L) - Senior Interaction Designer ry thyroxine, serum, free 0.82 ng/dL 0.59-1.17 Lab Report: Renal Panel, Magnesium - Chelle radha sodium, serum 142 mmol/L 348-189 6285/11/02 potassium, serum 3.4 mmol/L 3.5-5.2 chloride, serum [...] 0.59-1.17 Encounters Code Encounter Date Provider Facility CPT-58623 [id number] Vst-Est Level III 09:15:[facility] [place] [facility] Level 4 Est. Patient 15:35:24 ELECTRICIAN BUS Adam Yates MD [facility] CPT-89032 Level 3 New Patient 12:08:54 ELECTRICIAN BUS Adam Yates MD [facility] CPT-35950 [id number] Vst-Est Level IV 19:48:30 ELECTRICIAN BUS Tracy Holt [facility] [place] CPT-68973 [id number] Vst-Est Level III 14:29:19 CDT Fiorella Holt [facility] [place] CPT-99698 Level 2 Est. Patient 14:58:26 CDT Kylie boyd [facility] [place] CPT-86960 Level 3 Est. Patient 08:15:24 ELECTRICIAN BUS Kylie boyd [facility]-60424 Level 2 Est. Patient 14:27:16 ELECTRICIAN BUS Kylie boyd [facility] CPT-21095 Level 3 Est. Patient 17:54:48 CDT Kylie boyd [facility] CPT-46353 Level 3 Est. Patient 16:26:30 CDT Kina blackmon [facility] CPT-28418 Level 3 New Patient 16:22:01 ELECTRICIAN BUS Adam Yates MD [facility] CPT-60053 Level 4 Est. Patient 17:00:48 CDT Kylie Lund [facility] CPT-66565 Level 3 Est. Patient 13:15:54 CDT Kylie Lund [facility] CPT-48632 Level 3 Est. Patient 09:10:11 CDT Kylie Lund [facility] CPT-95760 Level 4 Est. Patient 12:08:30 ELECTRICIAN BUS Hope cohn MD [facility] CPT-41176 Level 4 Est. Patient 19:08:42 ELECTRICIAN BUS Hope cohn MD [facility] CPT-16888 Level 4 Est. Patient 20:04:51 CDT Hope cohn MD [facility] CPT-42901 Level 3 New Patient 01:46:11 ELECTRICIAN BUS Hope landers MD [facility] Procedures Code Procedure Name Date Entry Date Standard Desc ription CPT-G0008 Administration of Influenza Virus Vaccine 15:08:32 CDT CPT-49787 Flublok Quadrivalent (Flu) Syringe IM(Tx dicare) 15:08:32 CDT CPT-65577 Venipuncture Draw Fee 10:06:15 CDT CPT-11716 Bone Density - XRAY USE ONLY 11:51:35 CDT 2 CPT-08589 Free T4 - LAB USE ONLY 11:44:37 CDT CPT-99139 TSH - LAB USE ONLY 11:44:37 CDT CPT-64701 Venipuncture Draw Fee 11:44:37 CDT CPT-J0897 Prolia 60 mg 10:36:55 CDT CPT-74037 Abx/Therapy Injection 10:36:55 CDT CPT-09835 Venipuncture Draw Fee 13:34:11 CDT CPT-G0439 Subsequent Annual Wellness Exam 09:15:19 CDT CPT-15598 Postop F/U Visit 15:45:41 CDT CPT-69455 Sono Soft Tissue Head and Neck - XRAY US E ONLY 11:56:06 ELECTRICIAN BUS CPT-11442 Abx/Therapy Injection 09:40:08 ELECTRICIAN BUS CPT-J0897 Prolia 60 mg 09:40:08 ELECTRICIAN BUS CPT-77559 First Vx - Ix admin for Medicare patients 02/08 10:02:45 CDT CPT-87754 Fluzone Quadrivalent Intramuscular Suspe nsion 0.5 ML 10:02:45 CDT CPT-14645 Magnesium - LAB USE ONLY 09:41:00 CDT 12/09 CPT-08750 Renal Panel - LAB USE ONLY 09:41:00 CDT 201 09/17/01 CPT-86225 Venipuncture Draw Fee 09:41:00 CDT CPT-75435 Calcium - LAB USE ONLY 17:25:11 CDT CPT-J0897 Prolia 60 mg 15:10:59 CDT CPT-59704 Abx/Therapy Injection 15:10:59 CDT CPT-G0439 Subsequent Annual Wellness Exam 14:29:19 CDT CPT-27519 Venipuncture Draw Fee 10:59:04 CDT CPT-50202 CMP - LAB USE ONLY 10:59:04 CDT CPT-51348 CBC with Diff - LAB USE ONLY 10:59:03 CDT 2 CPT-J0897 Prolia 60 mg 15:46:54 ELECTRICIAN BUS CPT-30193 Abx/Therapy Injection 15:46:54 ELECTRICIAN BUS CPT-33002 Microalbumin - LAB USE ONLY 09:41:32 ELECTRICIAN BUS 20 23/01/15 CPT-74841 Free T4 - LAB USE ONLY 09:41:32 ELECTRICIAN BUS CPT-03982 TSH - LAB USE ONLY 09:41:32 ELECTRICIAN BUS CPT-30683 BMP - LAB USE ONLY 09:41:32 ELECTRICIAN BUS CPT-61406 Venipuncture Draw Fee 09:41:32 ELECTRICIAN BUS CPT-40295 First Vx - Ix admin for Medicare patients 11:19:30 CDT CPT-28153 Fluzone High-Dose Intramuscular Suspension 12/07 11:19:30 CDT CPT-J0897 Prolia 60 mg 14:55:42 CDT CPT-05414 Abx/Therapy Injection 14:55:42 CDT CPT-87083 Bone Density - XRAY USE ONLY 10:27:12 CDT 2 CPT-G0439 Subsequent Annual Wellness Exam 17:54:53 CDT CPT-85574 Foot, left, comp min 3V - XRAY USE ONLY 12:22:49 CDT CPT-G0009 Administration of Pneumococcal Vaccine 3 12:18:00 CDT CPT-99319 Pneumovax 23 Injection Injectable 25 MCG /0.5ML 12:18:00 CDT CPT-J0897 Prolia 60 mg 14:14:16 ELECTRICIAN BUS CPT-47883 Abx/Therapy Injection 14:14:15 ELECTRICIAN BUS CPT-71753 Lipid - LAB USE ONLY 10:01:52 ELECTRICIAN BUS 2 CPT-18306 Calcium - LAB USE ONLY 10:01:51 ELECTRICIAN BUS CPT-98795 Venipuncture Draw Fee 10:01:51 ELECTRICIAN BUS CPT-LR Lesion Removal 16:22:01 ELECTRICIAN BUS CPT-38231 TSH - LAB USE ONLY 14:26:02 CDT CPT-43094 CMP - LAB USE ONLY 14:26:01 CDT CPT-44455 CBC with Diff - LAB USE ONLY 14:26:01 CDT 2 CPT-36451 Venipuncture Draw Fee 14:26:01 CDT CPT-76578 First Vx - Ix admin for Medicare patients 13:27:08 CDT CPT-48254 Fluzone High-Dose Intramuscular Suspension 11/26 13:27:08 CDT CPT-G0438 Initial Annual Wellness Exam 14:19:57 CD T CPT-G0009 Administration of Pneumococcal Vaccine 9 11:36:25 CDT CPT-23999 Prevnar 13 Intramuscular Suspension 1 1:36:25 CDT CPT-51433 Prevnar 13 Intramuscular Suspension 1 0:40:58 CDT CPT-J0897 Prolia 60 mg 10:37:16 CDT CPT-39108 Abx/Therapy Injection 10:37:16 CDT CPT-J0897 Prolia 60 mg 16:09:34 ELECTRICIAN BUS CPT-J0897 Prolia 60 mg 11:10:35 ELECTRICIAN BUS CPT-58734 Abx/Therapy Injection 11:10:35 ELECTRICIAN BUS CPT-000 Give Appropriate Flu Vaccine 17:01:15 ELECTRICIAN BUS 2 CPT-00817 Fluzone High Dose (65+) 15:03:08 ELECTRICIAN BUS 02/15 CPT-30787 Immunization Single Admin 15:03:08 ELECTRICIAN BUS 2014 CPT-OV Office Visit 15:58:06 CDT CPT-J0897 Prolia 60 mg 08:45:38 CDT CPT-33055 Abx/Therapy Injection 08:45:38 CDT CPT-J3420 Vitamin B12 1000mcg (Cyanocobalamin) 09:26:20 ELECTRICIAN BUS CPT-77943 Abx/Therapy Injection 09:26:20 ELECTRICIAN BUS CPT-J3420 Vitamin B12 1000mcg (Cyanocobalamin) 09:44:40 ELECTRICIAN BUS CPT-20564 Abx/Therapy Injection 09:44:40 ELECTRICIAN BUS CPT-J3420 Vitamin B12 1000mcg (Cyanocobalamin) 09:15:54 ELECTRICIAN BUS CPT-42514 Abx/Therapy Injection 09:15:54 ELECTRICIAN BUS CPT-J3420 Vitamin B12 1000mcg (Cyanocobalamin) 09:46:44 ELECTRICIAN BUS CPT-64490 Abx/Therapy Injection 09:46:44 ELECTRICIAN BUS CPT-J3420 Vitamin B12 1000mcg (Cyanocobalamin) 09:47:34 ELECTRICIAN BUS CPT-99059 Abx/Therapy Injection 09:47:34 ELECTRICIAN BUS CPT-J3420 Vitamin B12 1000mcg (Cyanocobalamin) 14:35:50 ELECTRICIAN BUS CPT-J3420 Vitamin B12 1000mcg (Cyanocobalamin) 09:25:05 ELECTRICIAN BUS CPT-51666 Abx/Therapy Injection 09:25:05 ELECTRICIAN BUS CPT-G0008 Administration of Influenza Virus Vaccine 13:36:47 CDT CPT-04034 Fluzone High-Dose Intramuscular Suspension 11/15 13:36:47 CDT CPT-J0897 Prolia 60 mg 08:50:41 CDT CPT-48911 Abx/Therapy Injection 08:50:41 CDT CPT-43676 Bone Density 12:06:12 CDT CPT-43518 Bone Density 08:54:40 CDT CPT-OV Office Visit 15:37:02 CDT CPT-00044 Postop F/U Visit 15:47:49 CDT CPT-01920 Postop F/U Visit 15:21:02 CDT [facility] Transitional Care Mgmt-High 07:52:27 CDT 20 20/06/01 CPT-59977 Venipuncture Draw Fee 13:51:18 CDT CPT-96574 Venipuncture Draw Fee 10:14:55 ELECTRICIAN BUS CPT-89828 Venipuncture Draw Fee 13:39:45 ELECTRICIAN BUS CPT-OV Office Visit 15:11:22 ELECTRICIAN BUS CPT-43019 Venipuncture Draw Fee 09:20:49 ELECTRICIAN BUS CPT-22740 Venipuncture Draw Fee 16:52:15 ELECTRICIAN BUS CPT-86095 Venipuncture Draw Fee 10:37:24 ELECTRICIAN BUS CPT-13111 Venipuncture Draw Fee 08:21:21 ELECTRICIAN BUS CPT-68043 Venipuncture Draw Fee 08:30:20 ELECTRICIAN BUS CPT-65319 Venipuncture Draw Fee 14:53:21 ELECTRICIAN BUS CPT-71392 Venipuncture Draw Fee 09:40:56 ELECTRICIAN BUS CPT-83969 Venipuncture Draw Fee 10:30:47 ELECTRICIAN BUS CPT-24178 Venipuncture Draw Fee 10:46:17 ELECTRICIAN BUS CPT-70517 Venipuncture Draw Fee 11:12:45 ELECTRICIAN BUS CPT-74706 Venipuncture Draw Fee 09:53:33 ELECTRICIAN BUS CPT-21680 Venipuncture Draw Fee 11:53:51 ELECTRICIAN BUS CPT-30996 Venipuncture Draw Fee 10:33:50 ELECTRICIAN BUS CPT-38111 Venipuncture Draw Fee 10:05:01 ELECTRICIAN BUS CPT-55024 Venipuncture Draw Fee 14:32:52 ELECTRICIAN BUS CPT-76341 Venipuncture Draw Fee 09:46:13 ELECTRICIAN BUS CPT-93390 Venipuncture Draw Fee 11:34:27 ELECTRICIAN BUS CPT-87282 Venipuncture Draw Fee 13:17:16 ELECTRICIAN BUS 2013/11/ 05 CPT-85322 Venipuncture Draw Fee 12:05:39 CDT CPT-00429 Venipuncture Draw Fee 12:49:12 CDT CPT-30238 Venipuncture Draw Fee 12:37:18 CDT CPT-05528 Venipuncture Draw Fee 10:57:11 CDT CPT-19835 Venipuncture Draw Fee 13:47:40 CDT CPT-55876 Venipuncture Draw Fee 10:02:17 CDT CPT-96599 TB Tubersol 17:32:32 CDT CPT-OV Office Visit 16:21:53 CDT CPT-OV Office Visit 15:49:22 CDT CPT-OV Office Visit 17:16:31 CDT CPT-OV Office Visit 10:43:31 CDT
--- OUTSIDE RECORDS SUMMARY | 2019-02-09 11:38 | XMS REPORT | Clinical Summary ---
Author Author Renaldo, Florecita Munoz Organization [facility] Address Unknown Phone Unavailable Allergies, Adverse Reactions, [...] PhD Hyperpotassemia GERD 530.81 Resolved Kylie Yokum [employer] APPRAISER Esophageal reflux Health maintenance exam V70.0 Resolved Adolfo Yates MD Routine general medical examination at a health care facility Anemia 285.9 Resolved Kylie Holt [employer] APPRAISER Anemia, unspecified Personal history of malignant neoplasm of large intestine V10.05 Active Adam Yates MD Personal history of malignant neoplasm of large intestine Hypomagnesemia 275.2 Resolved Kylie Holt [employer] APPRAISER Disorders of magnesium metabolism Weakness 780.79 Resolved [...] Sebaceous cyst, scalp 706.2 Resolved Kylie Yokum [employer] APPRAISER Sebaceous cyst Cervical lymphadenopathy, anterior, left 785.6 Resolv ed Kylie Yokum [employer] DAMAGE APPRAISER Enlargement of lymph nodes Need for prophylactic vaccination and inoculation against in fluenza V04.81 Resolved Adam Yates MD Need for prophylactic vaccination and inoculation against influenza Preventive health care V70.0 Resolved Kylie Lundu m [employer] APPR[employer]ISER Routine general medical examination at a health care facility Thyroid nodule, left 241.0 Resolved Selena Yates MD Nontoxic uninodular goiter Screening mammogram V76.12 Resolved Kylie Yokum A PRN Other screening mammogram Mandy 706.2 Resolved Kylie Yokum [employer] AP[employer]ISER Sebaceous cyst Colon cancer, ascending 153.6 Resolved Kylie Yok um [employer] DAMAGE APPRAISER Malignant neoplasm of ascending colon Foot pain, left 729.5 Resolved Kylie Yokum [employer] DAMAGE APPRAISER Pain in limb Splinter 919.6 Resolved Kylie Yokum [employer] DAMAGE APPRAISER Superficial foreign body (splinter) of other, multiple, and unspecified sites, without major open wound and without mention of infection Rash 782.1 Resolved Kylie Yokum [employer] DAMAGE APPRAISER Rash and other nonspecific skin eruption Cyst 706.2 Resolved Kylie Yokum [employer] DAMAGE APPRAISER Sebaceous cyst Body Mass Index 23.0-23.9 Adult Refinement 2017 Kylie Yokum [employer] DAMAGE APPRAISER Body Mass Index between 19-24, adult BMI less than 20 Refinement Adam wiggins MD Body Mass Index between 19-24, adult BMI 24-24.9 Refinement Adam Yates MD Body Mass Index between 19-24, adult BMI 23-23.9 Active Adam Yates MD Body Mass Index between 19-24, adult Unspecified fall, initial encounter E888.9 Inactive Kylie Holt APRN Unspecified fall Eye pain, left 379.91 Inactive Kylie Hlot APRN Pain in or around eye Pharyngitis, [...] RIGHT LOWER QUADRANT ICD-789.03 Inactive Kina Joshua [employer] APPR[employer]ISER ADENOCARCINOMA, COLON, 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 Dick Yates MD ABDOMINAL PAIN, GENERALIZED ICD-789.07 Inactive Hope Benavidez MD PhD FEVER UNSPECIFIED ICD-780.60 Inactive Hope cohn MD PhD UNSPECIFIED VENOUS INSUFFICIENCY ICD-459.81 Elda ctive Adam Yates MD ADENOCARCINOMA, 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 Inac tive Hope Benavidez MD PhD Hyperkalemia ICD-276.7 Inactive Hope Benavidez MD PhD GERD ICD-530.81 Inactive Kylie Yanet [employer] APPR[employer]ISER 2015 Health maintenance exam ICD-V70.0 Bam Yates MD Anemia ICD-285.9 Inactive Kylie Yanet [employer] DAMAGE APPRAISER 07/24 Hypomagnesemia ICD-275.2 Inactive Kylie Holt [employer] APPR[employer]ISER Weakness ICD-780.79 Inactive Hope Benavidez MD P [...] cyst, scalp ICD-706.2 Inactive Tracy hi Yokum [employer] DAMAGE APPRAISER Cervical lymphadenopathy, anterior, left ICD-785.6 Inactive Kylie Yokum [employer] DAMAGE APPRAISER Need for prophylactic vaccination and inoculation against in fluenza ICD-V04.81 Inactive Adam Yates MD Preventive health care ICD-V70.0 Inactive Ka thi Yokum [employer] DAMAGE APPRAISER Thyroid nodule, left ICD-241.0 Inactive Selena Yates MD Screening mammogram ICD-V76.12 Inactive Kylie Yokum [employer] DAMAGE APPRAISER Mandy ICD-706.2 Inactive Kylie Yokum [employer] DAMAGE APPRAISER 07/20 Colon cancer, ascending ICD-153.6 Inactive K athi Yokum [employer] DAMAGE APPRAISER Foot pain, left ICD-729.5 Inactive Kylie Yokum [employer] DAMAGE APPRAISER Splinter ICD-919.6 Inactive Kylie Yokum [employer] APPRAISER 2017 Rash ICD-782.1 Inactive Kylie Yokum [employer] DAMAGE APPRAISER 07/25 Cyst ICD-706.2 Inactive Kylie Yokum [employer] DAMAGE APPRAISER 08/11 Unspecified fall, initial encounter ICD-E888.9 Inactive Kylie Yokum [employer] DAMAGE APPRAISER Eye pain, left ICD-379.91 Inactive Kylie Holt [...] other medications for hypothyroidism. LEVOTHYROX INE SODIUM 41841608278 Active Kylie Holt APRN Active VOLTAREN 1 % TRANSDERMAL GEL apply 2 grams q 6-8 hour to left arm as needed for pain DICLOFENAC SODIUM 40752031465 Active Kylie Holt APR N Active IMODIUM A-D 2 MG ORAL TABLET 1 tablet twice a day LOPERAMIDE HCL 71576824097 Active Kylie Holt APRN Active COQ10 100 MG ORAL CAPSULE 1 daily COENZYME Q10 812149 27262 Active LETY [place] Active VITAMIN D3 2000 UNIT ORAL CAPSULE Melaleuca-One daily CHOLECALCIFEROL 11245639542 Active Kylie Holt APRN Active PROBIOTIC DAILY ORAL CAPSULE Take one daily PROBIO TIC PRODUCT 80636378392 Active Kylie Holt APRN Active IRON 325 (65 Fe) MG ORAL TABLET 1 every other day FERROUS SULFATE 10798090343 No Longer Active Kylie Yokum [employer] DAMAGE APPRAISER Active FLORANEX ORAL PACKET 1 pack three times daily, for bowel health LACTOBACILLUS 35232219886 No Longer Active Kylie Lundum [employer] DAMAGE APPRAISER Active LOMOTIL 2.5-0.025 MG ORAL TABLET 1 tab by mouth prn 20 23/10/23 DIPHENOXYLATE-ATROPINE 03391774759 No Longer Active Kylie Yokum [employer] DAMAGE APPRAISER Active MAGNESIUM GLUCONATE 250 MG ORAL TABLET 1 tab tid 23/10/23 MAGNESIUM GLUCONATE 98321479793 No Longer Active Kylie Yokum [employer] DAMAGE APPRAISER Active CYANOCOBALAMIN 1000 MCG/ML INJECTION SOLUTION 1 injection ev ruben 2 weeks CYANOCOBALAMIN 84679882084 No Longer Active Kylie Lund um [employer] DAMAGE APPRAISER Active ATENOLOL 25 MG ORAL TABLET 1/2 pill by mouth daily, fo r headaches, blood pressure ATENOLOL 35623645621 Active Kylie Escaloankum [employer] DAMAGE APPRAISER Active PROPRANOLOL HCL 80 MG ORAL TABLET 1 tab tue. and thur. PROPRANOLOL HCL 53110189136 No Longer Active Hope Benavidez MD PhD A ctive VITAMIN D3 4000 IU 1 tab 3 times daily VITAMIN D3 4000 IU No Longer Active Hope Benavidez MD PhD Active BACTRIM DS 800-160 MG ORAL TABLET 1 pill by mouth twice caludio y, for UTI SULFAMETHOXAZOLE-TRIMETHOPRIM 85670552552 No Longer Active Hope Benavidez MD PhD Active PROLIA 60 MG/ML SUBCUTANEOUS SOLUTION 1 shot every 6 months for osteoprosis DENOSUMAB 09370355239 Active Hope Benavidez MD PhD Active CALCIUM + D + K 750-500-40 MG-UNT-MCG ORAL TABLET 1 tab by m out twice daily CALCIUM-VITAMIN D-VITAMIN K 78630337787 Active Hope valdez MD PhD Active DAILY VALUE MULTIVITAMIN ORAL TABLET 1 tab by mouth twice daily 201 05/16/14 MULTIPLE VITAMIN 51696392423 Active Hope Benavidez MD PhD Acti ve FISH OIL 306 MG CAPS 1 tab by mouth three times daily OMEGA-3 FATTY ACIDS 95840603564 Active Hope Benavidez MD PhD Active LUTEIN 10 MG ORAL TABLET 1 tab daily LUTEIN 56623502 408 Active Hope Benavidez MD PhD Active TRIAMTERENE-HCTZ 37.5-25 MG ORAL TABLET 1 tab by mouth daily 10/22 TRIAMTERENE-HCTZ 09407771391 Active Kylie Holt [employer] DAMAGE APPRAISER Active CYCLOBENZAPRINE HCL 10 MG ORAL TABLET 1 tablet by mout h three times daily as needed for headaches CYCLOBENZAPRINE HCL 84211819380 No Longer Active Adam Yates MD Active OMEPRAZOLE 20 MG ORAL CAPSULE DELAYED RELEASE 1 tablet by mo [facility] daily for GERD OMEPRAZOLE 10000913084 No Longer Active Adam Yates MD Active ZOFRAN 8 MG ORAL TABLET 1 tab by mouth every 12 hours prn 4 ONDANSETRON HCL 95584581969 No Longer Active Adam Yates MD Active PHENADOZ 25 MG RECTAL SUPPOSITORY 1 every 4 hrs. PRN 2 PROMETHAZINE HCL 94066205972 No Longer Active Adam Yates MD A ctive POTASSIUM CHLORIDE 20 MEQ ORAL PACKET by mouth twice a day prn 2 POTASSIUM CHLORIDE 77127771288 No Longer Active Adam Carpenter MD Active PROMETHAZINE HCL 25 MG ORAL TABLET 1 Q. 4 hr. PRN PROMETHAZINE HCL 40533418086 No Longer Active Adam Yates MD Active INNOPRAN XL 120 MG ORAL CAPSULE EXTENDED RELEASE 24 HO UR Take one by mouth daily PROPRANOLOL HCL SR BEADS 10455975867 No Longer Active Adam Yates MD Active FLAGYL 500 MG ORAL TABLET 1 pill by mouth three times daily, for diarrhea METRONIDAZOLE 03596484688 No Longer Active Hope landers MD PhD Active DYAZIDE 37.5-25 MG ORAL CAPSULE 1 qd TRIA MTERENE-HCTZ 45395170355 No Longer Active Hope Benavidez MD PhD Active PROZAC 20 MG ORAL CAPSULE 1 q d FLUOXETINE HCL 43382987912 No Longer Active Hope Benavidez MD PhD Active SIMVASTATIN 40 MG ORAL TABLET 1 qd SIMVAS TATIN 29265693455 No Longer Active Adam Yates MD Active MELOXICAM 15 MG ORAL TABLET 1 qd MELOXICAM 80172093118 No Longer Active Adam Yates MD Active EXCEDRIN EXTRA STRENGTH 250-250-65 MG ORAL TABLET 1-2 q6h TX N headache [id number] 30017816446 Active Hope Benavidez MD PhD Active FLAGYL 500 MG ORAL TABLET 1 qid METRONIDAZOL E 57344599044 No Longer Active Adam Yates MD Active LEVAQUIN 750 MG ORAL TABLET 1 qd LEVOFLOXAC IN 04891728986 No Longer Active Adam Yates MD Active ADULT ASPIRIN LOW STRENGTH 81 MG ORAL TABLET DISINTEGRATING 1 qd ASPIRIN 05315311066 Active Hope Benavidez MD PhD Active LEVAQUIN 750 MG ORAL TABLET 1 qd LEVAQUIN 750 MG ORAL TABLET 600973 LEVOFLOXACIN Inactive FLAGYL 500 MG ORAL TABLET 1 qid FLAGYL 500 MG ORAL TABLET 769640 METRONIDAZOLE Inactive MELOXICAM 15 MG ORAL TABLET 1 qd MELOXICAM 15 MG ORAL TABLET 661408 MELOXICAM Inactive SIMVASTATIN 40 MG ORAL TABLET 1 qd SIMVASTATIN 40 MG ORAL TABLET 257040 SIMVASTATIN Inactive PROZAC 20 MG ORAL CAPSULE 1 q d PROZAC 20 MG ORAL CAPSULE 127330 FLUOXETINE HCL Inactive DYAZIDE 37.5-25 MG ORAL CAPSULE 1 qd 5 DYAZIDE 37.5-25 MG ORAL CAPSULE 684697 TRIAMTERENE-HCTZ Inactive INNOPRAN XL 120 MG ORAL CAPSULE EXTENDED RELEASE 24 HO UR Take one by mouth daily INNOPRAN XL 120 MG ORAL CAPSULE EXTENDED RELEASE 24 HOUR PROPRANOLOL HCL SR BEADS Inactive PROMETHAZINE HCL 25 MG ORAL TABLET 1 Q. 4 hr. PRN 2013 PROMETHAZINE HCL 25 MG ORAL TABLET 767477 PROMETHAZINE HCL Inactive POTASSIUM CHLORIDE 20 MEQ ORAL PACKET by mouth twice a day prn 2 POTASSIUM CHLORIDE 20 MEQ ORAL PACKET 5068821 POTASSIUM CHLORIDE Inactive PHENADOZ 25 MG RECTAL SUPPOSITORY 1 every 4 hrs. PRN 2 PHENADOZ 25 MG RECTAL SUPPOSITORY 608752 PROMETHAZINE HCL Inactive ZOFRAN 8 MG ORAL TABLET 1 tab by mouth every 12 hours prn 4 ZOFRAN 8 MG ORAL TABLET 285067 ONDANSETRON HCL Inactive OMEPRAZOLE 20 MG ORAL CAPSULE DELAYED RELEASE 1 tablet by mo uth daily for GERD OMEPRAZOLE 20 MG ORAL CAPSULE DELAYED RELEASE 19 8051 OMEPRAZOLE Inactive CYCLOBENZAPRINE HCL 10 MG ORAL TABLET 1 tablet by mout h three times daily as needed for headaches CYCLOBENZAPRINE HCL 10 MG ORAL TABLET 933612 CYCLOBENZAPRINE HCL Inactive VITAMIN D3 4000 IU 1 tab 3 times daily VITAMIN D3 4000 IU Inactive PROPRANOLOL HCL 80 MG ORAL TABLET 1 tab tue. and thur. PROPRANOLOL HCL 80 MG ORAL TABLET 440776 PROPRANOLOL HCL Inacti ve CYANOCOBALAMIN 1000 MCG/ML INJECTION SOLUTION 1 injection ev ruben 2 weeks CYANOCOBALAMIN 1000 MCG/ML INJECTION SOLUTION 30 9594 CYANOCOBALAMIN Inactive MAGNESIUM GLUCONATE 250 MG ORAL TABLET 1 tab tid 23/10/23 MAGNESIUM GLUCONATE 250 MG ORAL TABLET 466251 MAGNESIUM GLUCONATE Inactive LOMOTIL 2.5-0.025 MG ORAL TABLET 1 tab by mouth prn 20 23/10/23 LOMOTIL 2.5-0.025 MG ORAL TABLET 0007480 DIPHENOXYLATE-ATROPINE Inac tive FLORANEX ORAL PACKET 1 pack three times daily, for bowel health FLORANEX ORAL PACKET 35215077305 LACTOBACILLUS Inactive IRON 325 (65 Fe) MG ORAL TABLET 1 every other day 2015 IRON 325 (65 Fe) MG ORAL TABLET 046141 FERROUS SULFATE Inactive FLAGYL 500 MG ORAL TABLET 1 pill by mouth three times daily, for diarrhea FLAGYL 500 MG ORAL TABLET 666489 METRONIDAZOLE I nactive BACTRIM DS 800-160 MG ORAL TABLET 1 pill by mouth twice claudio y, for UTI BACTRIM DS 800-160 MG ORAL TABLET 301201 SULFAMETHOXAZOLE-TRIMETHOPRIM Inactive Advance Directives Directive Description Start [...] ... - Chemistry sodium, serum 141 mmol/L 986-060 6156/01/10 potassium, serum 3.7 mmol/L 3.5-5.2 chloride, serum 101 mmol/L 98-107 carbon dioxide, venous blood 31.0 mmol/L 21.0-32 .0 blood glucose 96 mg/dL 65-95 calcium, serum 9.5 mg/dL 8.5-10.1 urea nitrogen, blood 21 mg/dL 7-18 creatinine, serum 1.40 mg/dL 0.60-1.30 Estimated Glomerular Filtration Rate (calc) 39 (?) mL/min/1.73m2 = OR > 60 mL/min cholesterol, serum 211 mg/dL 848-757 0125/01/10 triglyceride, serum, fasting 77 mg/dL 30-200 HDL [...] 0.82 ng/dL 0.59-1.17 sodium, serum 142 mmol/L 388-998 3894/04/16 carbon dioxide, venous blood 30.0 mmol/L 21.0-32 [...] 50-136 Lab Report: Free Thyroxine (L) - Global Compensation Director ry thyroxine, serum, free 0.82 ng/dL 0.59-1.17 Lab Report: Renal Panel, Magnesium - Chelle radha sodium, serum 142 mmol/L 588-816 0249/11/02 potassium, serum 3.4 mmol/L 3.5-5.2 chloride, serum [...] 0.59-1.17 Encounters Code Encounter Date Provider Facility CPT-63179 [id number] Vst-Est Level III 09:15:19 [facility] [place] [facility] Level 4 Est. Patient 15:35:24 DRILL SETUP OPERATOR Adam Yates MD [facility] CPT-58604 Level 3 New Patient 12:08:54 DRILL SETUP OPERATOR Adam Yates MD [facility] CPT-90752 [id number] Vst-Est Level IV 19:48:30 DRILL SETUP OPERATOR Tracy Holt [facility] [place] CPT-19599 [id number] Vst-Est Level III 14:29:19 CDT Fiorella Holt [facility] [place] CPT-11718 Level 2 Est. Patient 14:58:26 CDT Kylie boyd [facility] [place] CPT-90154 Level 3 Est. Patient 08:15:24 DRILL SETUP OPERATOR Kylie boyd [facility] [place] CPT-36406 Level 2 Est. Patient 14:27:16 DRILL SETUP OPERATOR Kylie boyd [facility] CPT-18490 Level 3 Est. Patient 17:54:48 CDT Kylie boyd [facility] CPT-11117 Level 3 Est. Patient 16:26:30 CDT Kina blackmon [facility] CPT-03360 Level 3 New Patient 16:22:01 DRILL SETUP OPERATOR Adam Yates MD [facility] CPT-59963 Level 4 Est. Patient 17:00:48 CDT Kylie Lund [facility] [place]-85692 Level 3 Est. Patient 13:15:54 CDT Kylie Lund [facility] CPT-51343 Level 3 Est. Patient 09:10:11 CDT Kylie Lund [facility] CPT-17018 Level 4 Est. Patient 12:08:30 DRILL SETUP OPERATOR Hope cohn MD [facility] CPT-41603 Level 4 Est. Patient 19:08:42 DRILL SETUP OPERATOR Hope cohn MD [facility] CPT-24139 Level 4 Est. Patient 20:04:51 CDT Hope cohn MD [facility] CPT-44323 Level 3 New Patient 01:46:11 DRILL SETUP OPERATOR Hope landers MD [facility] Procedures Code Procedure Name Date Entry Date Standard Desc ription CPT-G0008 Administration of Influenza Virus Vaccine 15:08:32 CDT CPT-31355 Flublok Quadrivalent (Flu) Syringe IM(Sc dicare) 15:08:32 CDT CPT-86995 Venipuncture Draw Fee 10:06:15 CDT CPT-34248 Bone Density - XRAY USE ONLY 11:51:35 CDT 2 CPT-17832 Free T4 - LAB USE ONLY 11:44:37 CDT CPT-59262 TSH - LAB USE ONLY 11:44:37 CDT CPT-08118 Venipuncture Draw Fee 11:44:37 CDT CPT-J0897 Prolia 60 mg 10:36:55 CDT CPT-76791 Abx/Therapy Injection 10:36:55 CDT CPT-63318 Venipuncture Draw Fee 13:34:11 CDT CPT-G0439 Subsequent Annual Wellness Exam 09:15:19 CDT CPT-37250 Postop F/U Visit 15:45:41 CDT CPT-47178 Sono Soft Tissue Head and Neck - XRAY US E ONLY 11:56:06 DRILL SETUP OPERATOR CPT-19565 Abx/Therapy Injection 09:40:08 DRILL SETUP OPERATOR CPT-J0897 Prolia 60 mg 09:40:08 DRILL SETUP OPERATOR CPT-28527 First Vx - Ix admin for Medicare patients 02/08 10:02:45 CDT CPT-64736 Fluzone Quadrivalent Intramuscular Suspe nsion 0.5 ML 10:02:45 CDT CPT-94412 Magnesium - LAB USE ONLY 09:41:00 CDT 12/09 CPT-49964 Renal Panel - LAB USE ONLY 09:41:00 CDT 201 09/17/01 CPT-64643 Venipuncture Draw Fee 09:41:00 CDT CPT-66202 Calcium - LAB USE ONLY 17:25:11 CDT CPT-J0897 Prolia 60 mg 15:10:59 CDT CPT-60226 Abx/Therapy Injection 15:10:59 CDT CPT-G0439 Subsequent Annual Wellness Exam 14:29:19 CDT CPT-69257 Venipuncture Draw Fee 10:59:04 CDT CPT-50290 CMP - LAB USE ONLY 10:59:04 CDT CPT-59675 CBC with Diff - LAB USE ONLY 10:59:03 CDT 2 CPT-J0897 Prolia 60 mg 15:46:54 DRILL SETUP OPERATOR CPT-14385 Abx/Therapy Injection 15:46:54 DRILL SETUP OPERATOR CPT-16922 Microalbumin - LAB USE ONLY 09:41:32 DRILL SETUP OPERATOR 20 23/01/15 CPT-94866 Free T4 - LAB USE ONLY 09:41:32 DRILL SETUP OPERATOR CPT-91236 TSH - LAB USE ONLY 09:41:32 DRILL SETUP OPERATOR CPT-74702 BMP - LAB USE ONLY 09:41:32 DRILL SETUP OPERATOR CPT-88362 Venipuncture Draw Fee 09:41:32 DRILL SETUP OPERATOR CPT-97539 First Vx - Ix admin for Medicare patients 11:19:30 CDT CPT-54321 Fluzone High-Dose Intramuscular Suspension 12/07 11:19:30 CDT CPT-J0897 Prolia 60 mg 14:55:42 CDT CPT-52881 Abx/Therapy Injection 14:55:42 CDT CPT-47508 Bone Density - XRAY USE ONLY 10:27:12 CDT 2 CPT-G0439 Subsequent Annual Wellness Exam 17:54:53 CDT CPT-39276 Foot, left, comp min 3V - XRAY USE ONLY 12:22:49 CDT CPT-G0009 Administration of Pneumococcal Vaccine 3 12:18:00 CDT CPT-07050 Pneumovax 23 Injection Injectable 25 MCG /0.5ML 12:18:00 CDT CPT-J0897 Prolia 60 mg 14:14:16 DRILL SETUP OPERATOR CPT-57617 Abx/Therapy Injection 14:14:15 DRILL SETUP OPERATOR CPT-17903 Lipid - LAB USE ONLY 10:01:52 DRILL SETUP OPERATOR 2 CPT-52923 Calcium - LAB USE ONLY 10:01:51 DRILL SETUP OPERATOR CPT-95567 Venipuncture Draw Fee 10:01:51 DRILL SETUP OPERATOR CPT-LR Lesion Removal 16:22:01 DRILL SETUP OPERATOR CPT-75444 TSH - LAB USE ONLY 14:26:02 CDT CPT-01415 CMP - LAB USE ONLY 14:26:01 CDT CPT-40636 CBC with Diff - LAB USE ONLY 14:26:01 CDT 2 CPT-09845 Venipuncture Draw Fee 14:26:01 CDT CPT-35303 First Vx - Ix admin for Medicare patients 13:27:08 CDT CPT-24822 Fluzone High-Dose Intramuscular Suspension 11/26 13:27:08 CDT CPT-G0438 Initial Annual Wellness Exam 14:19:57 CD T CPT-G0009 Administration of Pneumococcal Vaccine 9 11:36:25 CDT CPT-47117 Prevnar 13 Intramuscular Suspension 1 1:36:25 CDT CPT-30977 Prevnar 13 Intramuscular Suspension 1 0:40:58 CDT CPT-J0897 Prolia 60 mg 10:37:16 CDT CPT-88106 Abx/Therapy Injection 10:37:16 CDT CPT-J0897 Prolia 60 mg 16:09:34 DRILL SETUP OPERATOR CPT-J0897 Prolia 60 mg 11:10:35 DRILL SETUP OPERATOR CPT-16752 Abx/Therapy Injection 11:10:35 DRILL SETUP OPERATOR CPT-000 Give Appropriate Flu Vaccine 17:01:15 DRILL SETUP OPERATOR 2 CPT-65545 Fluzone High Dose (65+) 15:03:08 DRILL SETUP OPERATOR 02/15 CPT-52432 Immunization Single Admin 15:03:08 DRILL SETUP OPERATOR 2014 CPT-OV Office Visit 15:58:06 CDT CPT-J0897 Prolia 60 mg 08:45:38 CDT CPT-37922 Abx/Therapy Injection 08:45:38 CDT CPT-J3420 Vitamin B12 1000mcg (Cyanocobalamin) 09:26:20 DRILL SETUP OPERATOR CPT-05980 Abx/Therapy Injection 09:26:20 DRILL SETUP OPERATOR CPT-J3420 Vitamin B12 1000mcg (Cyanocobalamin) 09:44:40 DRILL SETUP OPERATOR CPT-55949 Abx/Therapy Injection 09:44:40 DRILL SETUP OPERATOR CPT-J3420 Vitamin B12 1000mcg (Cyanocobalamin) 09:15:54 DRILL SETUP OPERATOR CPT-29820 Abx/Therapy Injection 09:15:54 DRILL SETUP OPERATOR CPT-J3420 Vitamin B12 1000mcg (Cyanocobalamin) 09:46:44 DRILL SETUP OPERATOR CPT-14626 Abx/Therapy Injection 09:46:44 DRILL SETUP OPERATOR CPT-J3420 Vitamin B12 1000mcg (Cyanocobalamin) 09:47:34 DRILL SETUP OPERATOR CPT-69369 Abx/Therapy Injection 09:47:34 DRILL SETUP OPERATOR CPT-J3420 Vitamin B12 1000mcg (Cyanocobalamin) 14:35:50 DRILL SETUP OPERATOR CPT-J3420 Vitamin B12 1000mcg (Cyanocobalamin) 09:25:05 DRILL SETUP OPERATOR CPT-88398 Abx/Therapy Injection 09:25:05 DRILL SETUP OPERATOR CPT-G0008 Administration of Influenza Virus Vaccine 13:36:47 CDT CPT-87417 Fluzone High-Dose Intramuscular Suspension 11/15 13:36:47 CDT CPT-J0897 Prolia 60 mg 08:50:41 CDT CPT-27339 Abx/Therapy Injection 08:50:41 CDT CPT-16497 Bone Density 12:06:12 CDT CPT-03172 Bone Density 08:54:40 CDT CPT-OV Office Visit 15:37:02 CDT CPT-22924 Postop F/U Visit 15:47:49 CDT CPT-00144 Postop F/U Visit 15:21:02 CDT CPT-[facility] Transitional Care Mgmt-High 07:52:27 CDT 20 20/06/01 CPT-35784 Venipuncture Draw Fee 13:51:18 CDT CPT-61502 Venipuncture Draw Fee 10:14:55 DRILL SETUP OPERATOR CPT-82506 Venipuncture Draw Fee 13:39:45 DRILL SETUP OPERATOR CPT-OV Office Visit 15:11:22 DRILL SETUP OPERATOR CPT-65411 Venipuncture Draw Fee 09:20:49 DRILL SETUP OPERATOR CPT-31413 Venipuncture Draw Fee 16:52:15 DRILL SETUP OPERATOR CPT-49665 Venipuncture Draw Fee 10:37:24 DRILL SETUP OPERATOR CPT-41360 Venipuncture Draw Fee 08:21:21 DRILL SETUP OPERATOR CPT-63985 Venipuncture Draw Fee 08:30:20 DRILL SETUP OPERATOR CPT-22014 Venipuncture Draw Fee 14:53:21 DRILL SETUP OPERATOR CPT-38708 Venipuncture Draw Fee 09:40:56 DRILL SETUP OPERATOR CPT-69839 Venipuncture Draw Fee 10:30:47 DRILL SETUP OPERATOR CPT-41606 Venipuncture Draw Fee 10:46:17 DRILL SETUP OPERATOR CPT-84548 Venipuncture Draw Fee 11:12:45 DRILL SETUP OPERATOR CPT-79648 Venipuncture Draw Fee 09:53:33 DRILL SETUP OPERATOR CPT-61024 Venipuncture Draw Fee 11:53:51 DRILL SETUP OPERATOR CPT-91025 Venipuncture Draw Fee 10:33:50 DRILL SETUP OPERATOR CPT-53465 Venipuncture Draw Fee 10:05:01 DRILL SETUP OPERATOR CPT-40834 Venipuncture Draw Fee 14:32:52 DRILL SETUP OPERATOR CPT-17521 Venipuncture Draw Fee 09:46:13 DRILL SETUP OPERATOR CPT-61394 Venipuncture Draw Fee 11:34:27 DRILL SETUP OPERATOR CPT-51908 Venipuncture Draw Fee 13:17:16 DRILL SETUP OPERATOR CPT-11736 Venipuncture Draw Fee 12:05:39 CDT CPT-80645 Venipuncture Draw Fee 12:49:12 CDT CPT-51265 Venipuncture Draw Fee 12:37:18 CDT CPT-21625 Venipuncture Draw Fee 10:57:11 CDT CPT-76009 Venipuncture Draw Fee 13:47:40 CDT CPT-16239 Venipuncture Draw Fee 10:02:17 CDT CPT-83993 TB Tubersol 17:32:32 CDT CPT-OV Office Visit 16:21:53 CDT CPT-OV Office Visit 15:49:22 CDT CPT-OV Office Visit 17:16:31 CDT CPT-OV Office Visit 10:43:31 CDT
--- OUTSIDE RECORDS SUMMARY | 2019-02-09 11:39 | XMS REPORT | Clinical Summary ---
Author Author Admin, Florecita Munoz Organization [facility] [place] Address Unknown Phone Unavailable Allergies, Adverse Reactions, [...] Sebaceous cyst, scalp 706.2 Resolved Kylie Yokum SEGMENT PRODUCER Sebaceous cyst Cervical lymphadenopathy, anterior, left 785.6 Resolv ed Kylie Yokum SEGMENT PRODUCER Enlargement of lymph nodes Need for prophylactic vaccination and inoculation against in fluenza V04.81 Resolved Adam Yates MD Need for prophylactic vaccination and inoculation against influenza Preventive health care V70.0 Resolved Kylie Lundu m SEGMENT PRODUCER Routine general medical examination at a health care facility Thyroid nodule, left 241.0 Resolved Selena Yates MD Nontoxic uninodular goiter Screening mammogram V76.12 Resolved Kylie Yokum A PRN Other screening mammogram Mandy 706.2 Resolved Kylie Yokum SEGMENT PRODUCER Sebaceous cyst Colon cancer, ascending 153.6 Resolved Kylie Yok um SEGMENT PRODUCER Malignant neoplasm of ascending colon Foot pain, left 729.5 Resolved Kylie Yokum SEGMENT PRODUCER Pain in limb Splinter 919.6 Resolved Kylie Yokum SEGMENT PRODUCER Superficial foreign body (splinter) of other, multiple, and unspecified sites, without major open wound and without mention of infection Rash 782.1 Resolved Kylie Yokum SEGMENT PRODUCER Rash and other nonspecific skin eruption Cyst 706.2 Resolved Kylie Yokum SEGMENT PRODUCER Sebaceous cyst Body Mass Index 23.0-23.9 Adult Refinement 2017 Kylie Yokum SEGMENT PRODUCER Body Mass Index between 19-24, adult BMI [...] RIGHT LOWER QUADRANT ICD-789.03 Inactive Kina Joshua SEGMENT PRODUCER ADENOCARCINOMA, COLON, 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 Dick Yates MD ABDOMINAL PAIN, GENERALIZED ICD-789.07 Inactive Hope Benavidez MD PhD FEVER UNSPECIFIED ICD-780.60 Inactive Hope cohn MD PhD UNSPECIFIED VENOUS INSUFFICIENCY ICD-459.81 Weinert ctive Adam Yates MD ADENOCARCINOMA, 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 Inac tive Hope Benavidez MD PhD Hyperkalemia ICD-276.7 Inactive Hope Benavidez MD PhD GERD ICD-530.81 Inactive Kylieshubham Holt SEGMENT PRODUCER 2015 Health maintenance exam ICD-V70.0 Bam Yates MD Anemia ICD-285.9 Inactive Kylie Escalonapari SEGMENT PRODUCER 07/24 Hypomagnesemia ICD-275.2 Inactive Kylie Holt SEGMENT PRODUCER Weakness ICD-780.79 Inactive Hope Benavidez MD P Aftercare following surgery of the teeth,oral cavity a nd digestive system, NEC ICD-V58.75 Inactive Adam Yates MD Asymptomatic postmenopausal status (age-related) (natural) I CD-V49.81 Inactive Hope Benavidez MD PhD Diarrhea, functional ICD-564.5 Inactive Selena Yates MD Dysuria ICD-788.1 Inactive Hope Benavidez MD PhD 201 05/19/01 Adenocarcinoma, ascending colon ICD-153.6 Inac tive Adam Yates MD Sebaceous cyst, scalp ICD-706.2 Inactive Tracy hi Yokum SEGMENT PRODUCER Cervical lymphadenopathy, anterior, left ICD-785.6 Inactive Kylie Yokum SEGMENT PRODUCER Need for prophylactic vaccination and inoculation against in fluenza ICD-V04.81 Inactive Adam Yates MD Preventive health care ICD-V70.0 Inactive Ka thi Yokum SEGMENT PRODUCER Thyroid nodule, left ICD-241.0 Inactive Selena Yates MD Screening mammogram ICD-V76.12 Inactive Kylie Yokum SEGMENT PRODUCER Mandy ICD-706.2 Inactive Kylie Yokum SEGMENT PRODUCER 07/20 Colon cancer, ascending ICD-153.6 Inactive K athi Yokum SEGMENT PRODUCER Foot pain, left ICD-729.5 Inactive Kylie Yokum SEGMENT PRODUCER Splinter ICD-919.6 Inactive Kylie Yokum SEGMENT PRODUCER 2017 Rash ICD-782.1 Inactive Kylie Yokum SEGMENT PRODUCER 07/25 Cyst ICD-706.2 Inactive Kylie Yokum SEGMENT PRODUCER 08/11 Unspecified fall, initial encounter ICD-E888.9 Inactive Kylie Yokum SEGMENT PRODUCER Eye pain, left ICD-379.91 Inactive Kylie Yokum SEGMENT PRODUCER Pharyngitis, acute ICD-074.0 Inactive Kavin Yates MD Hypomagnesemia ICD-275.2 Inactive Adam Franklin MD Hypokalemia ICD-276.8 Inactive Adam enamorado MD Enlarged thyroid ICD-240.9 Inactive Adam Yates MD Underweight Inactive LETY [place] 05/17 Colon cancer ICD-153.9 Inactive Adam luna MD Follicular adenoma, thyroid ICD-226 Inactive Adam Yates MD Preventive health care, adult ICD-V70.0 Inacti ve Kylie Holt APRN Medication List Medication Instructions Start Date Stop Date Generic Name NDC Status Provider Patient Instruction SYNTHROID 75 MCG ORAL TABLET Take one tablet 30 minute s before breakfast or other medications for hypothyroidism. LEVOTHYROX INE SODIUM 07561521183 Active Kylie Holt APRN Active VOLTAREN 1 % TRANSDERMAL GEL apply 2 grams q 6-8 hour to left arm as needed for pain DICLOFENAC SODIUM 01899617117 Active Kylie Holt APR N Active IMODIUM A-D 2 MG ORAL TABLET 1 tablet twice a day LOPERAMIDE HCL 00413914349 Active Kylie Holt APRN Active COQ10 100 MG ORAL CAPSULE 1 daily COENZYME Q10 347903 03665 Active LETY [place] Active VITAMIN D3 2000 UNIT ORAL CAPSULE Melaleuca-One daily CHOLECALCIFEROL 41687375173 Active Kylie Holt APRN Active PROBIOTIC DAILY ORAL CAPSULE Take one daily PROBIO TIC PRODUCT 39996960239 Active Kylie Holt APRN Active IRON 325 (65 Fe) MG ORAL TABLET 1 every other day FERROUS SULFATE 12763698378 No Longer Active Kylie Yokum SEGMENT PRODUCER Active FLORANEX ORAL PACKET 1 pack three times daily, for bowel health LACTOBACILLUS 66634096320 No Longer Active Kylie Holt SEGMENT PRODUCER Active LOMOTIL 2.5-0.025 MG ORAL TABLET 1 tab by mouth prn 20 23/10/23 DIPHENOXYLATE-ATROPINE 01321827833 No Longer Active Kylie Lundum SEGMENT PRODUCER Active MAGNESIUM GLUCONATE 250 MG ORAL TABLET 1 tab tid 23/10/23 MAGNESIUM GLUCONATE 64082138658 No Longer Active Kylie Lundum SEGMENT PRODUCER Active CYANOCOBALAMIN 1000 MCG/ML INJECTION SOLUTION 1 injection ev ruben 2 weeks CYANOCOBALAMIN 91562782318 No Longer Active Kylie Lund um SEGMENT PRODUCER Active ATENOLOL 25 MG ORAL TABLET 1/2 pill by mouth daily, fo r headaches, blood pressure ATENOLOL 27119553844 Active Kylie Lundum SEGMENT PRODUCER Active PROPRANOLOL HCL 80 MG ORAL TABLET 1 tab tue. and thur. PROPRANOLOL HCL 63481638556 No Longer Active Hope Benavidez MD PhD A ctive VITAMIN D3 4000 IU 1 tab 3 times daily VITAMIN D3 4000 IU No Longer Active Hope Benavidez MD PhD Active BACTRIM DS 800-160 MG ORAL TABLET 1 pill by mouth twice claudio y, for UTI SULFAMETHOXAZOLE-TRIMETHOPRIM 61199265290 No Longer Active Hope Benavidez MD PhD Active PROLIA 60 MG/ML SUBCUTANEOUS SOLUTION 1 shot every 6 months for osteoprosis DENOSUMAB 10252361233 Active Hope Benavidez MD PhD Active CALCIUM + D + K 750-500-40 MG-UNT-MCG ORAL TABLET 1 tab by augusta [place] twice daily CALCIUM-VITAMIN D-VITAMIN K 20303431942 Active Hope valdez MD PhD Active DAILY VALUE MULTIVITAMIN ORAL TABLET 1 tab by mouth twice daily 201 05/16/14 MULTIPLE VITAMIN 69956676894 Active Hope Benavidez MD PhD Acti ve FISH OIL 306 MG CAPS 1 tab by mouth three times daily OMEGA-3 FATTY ACIDS 76458798113 Active Hope Benavidez MD PhD Active LUTEIN 10 MG ORAL TABLET 1 tab daily LUTEIN 11070726 408 Active Hope Benavidez MD PhD Active TRIAMTERENE-HCTZ 37.5-25 MG ORAL TABLET 1 tab by mouth daily 10/22 TRIAMTERENE-HCTZ 48498784820 Active Kylie Holt SEGMENT PRODUCER Active CYCLOBENZAPRINE HCL 10 MG ORAL TABLET 1 tablet by mout h three times daily as needed for headaches CYCLOBENZAPRINE HCL 78968067876 No Longer Active Adam Yates MD Active OMEPRAZOLE 20 MG ORAL CAPSULE DELAYED RELEASE 1 tablet by mo [facility] daily for GERD OMEPRAZOLE 21365388065 No Longer Active Adam Yates MD Active ZOFRAN 8 MG ORAL TABLET 1 tab by mouth every 12 hours prn 4 ONDANSETRON HCL 81819724202 No Longer Active Adam Yates MD Active PHENADOZ 25 MG RECTAL SUPPOSITORY 1 every 4 hrs. PRN 2 PROMETHAZINE HCL 58942162185 No Longer Active Adam Yates MD A ctive POTASSIUM CHLORIDE 20 MEQ ORAL PACKET by mouth twice a day prn 2 POTASSIUM CHLORIDE 74159777598 No Longer Active Adam Carpenter MD Active PROMETHAZINE HCL 25 MG ORAL TABLET 1 Q. 4 hr. PRN PROMETHAZINE HCL 38566505382 No Longer Active Adam Yates MD Active INNOPRAN XL 120 MG ORAL CAPSULE EXTENDED RELEASE 24 HO UR Take one by mouth daily PROPRANOLOL HCL SR BEADS 03004948727 No Longer Active Adam Yates MD Active FLAGYL 500 MG ORAL TABLET 1 pill by mouth three times daily, for diarrhea METRONIDAZOLE 48190872028 No Longer Active Hope landers MD PhD Active DYAZIDE 37.5-25 MG ORAL CAPSULE 1 qd TRIA MTERENE-HCTZ 13739896024 No Longer Active Hope Benavidez MD PhD Active PROZAC 20 MG ORAL CAPSULE 1 q d FLUOXETINE HCL 06166159072 No Longer Active Hope Benavidez MD PhD Active SIMVASTATIN 40 MG ORAL TABLET 1 qd SIMVAS TATIN 80341884935 No Longer Active Adam Yates MD Active MELOXICAM 15 MG ORAL TABLET 1 qd MELOXICAM 82002906807 No Longer Active Adam Yates MD Active EXCEDRIN EXTRA STRENGTH 250-250-65 MG ORAL TABLET 1-2 q6h TX N headache [id number] 13827848607 Active Hope Benavidez MD PhD Active FLAGYL 500 MG ORAL TABLET 1 qid METRONIDAZOL E 64208924240 No Longer Active Adam Yates MD Active LEVAQUIN 750 MG ORAL TABLET 1 qd LEVOFLOXAC IN 63064378129 No Longer Active Adam Yates MD Active ADULT ASPIRIN LOW STRENGTH 81 MG ORAL TABLET DISINTEGRATING 1 qd ASPIRIN 15185411791 Active Hope Benavidez MD PhD Active LEVAQUIN 750 MG ORAL TABLET 1 qd LEVAQUIN 750 MG ORAL TABLET 401371 LEVOFLOXACIN Inactive FLAGYL 500 MG ORAL TABLET 1 qid FLAGYL 500 MG ORAL TABLET 926540 METRONIDAZOLE Inactive MELOXICAM 15 MG ORAL TABLET 1 qd MELOXICAM 15 MG ORAL TABLET 880628 MELOXICAM Inactive SIMVASTATIN 40 MG ORAL TABLET 1 qd SIMVASTATIN 40 MG ORAL TABLET 606575 SIMVASTATIN Inactive PROZAC 20 MG ORAL CAPSULE 1 q d PROZAC 20 MG ORAL CAPSULE 198709 FLUOXETINE HCL Inactive DYAZIDE 37.5-25 MG ORAL CAPSULE 1 qd 5 DYAZIDE 37.5-25 MG ORAL CAPSULE 354083 TRIAMTERENE-HCTZ Inactive INNOPRAN XL 120 MG ORAL CAPSULE EXTENDED RELEASE 24 HO UR Take one by mouth daily INNOPRAN XL 120 MG ORAL CAPSULE EXTENDED RELEASE 24 HOUR PROPRANOLOL HCL SR BEADS Inactive PROMETHAZINE HCL 25 MG ORAL TABLET 1 Q. 4 hr. PRN 2013 PROMETHAZINE HCL 25 MG ORAL TABLET 093881 PROMETHAZINE HCL Inactive POTASSIUM CHLORIDE 20 MEQ ORAL PACKET by mouth twice a day prn 2 POTASSIUM CHLORIDE 20 MEQ ORAL PACKET 0172494 POTASSIUM CHLORIDE Inactive PHENADOZ 25 MG RECTAL SUPPOSITORY 1 every 4 hrs. PRN 2 PHENADOZ 25 MG RECTAL SUPPOSITORY 611295 PROMETHAZINE HCL Inactive ZOFRAN 8 MG ORAL TABLET 1 tab by mouth every 12 hours prn 4 ZOFRAN 8 MG ORAL TABLET 648347 ONDANSETRON HCL Inactive OMEPRAZOLE 20 MG ORAL CAPSULE DELAYED RELEASE 1 tablet by mo uth daily for GERD OMEPRAZOLE 20 MG ORAL CAPSULE DELAYED RELEASE 19 8051 OMEPRAZOLE Inactive CYCLOBENZAPRINE HCL 10 MG ORAL TABLET 1 tablet by mout h three times daily as needed for headaches CYCLOBENZAPRINE HCL 10 MG ORAL TABLET 208105 CYCLOBENZAPRINE HCL Inactive VITAMIN D3 4000 IU 1 tab 3 times daily VITAMIN D3 4000 IU Inactive PROPRANOLOL HCL 80 MG ORAL TABLET 1 tab tue. and thur. PROPRANOLOL HCL 80 MG ORAL TABLET 426269 PROPRANOLOL HCL Inacti ve CYANOCOBALAMIN 1000 MCG/ML INJECTION SOLUTION 1 injection ev ruben 2 weeks CYANOCOBALAMIN 1000 MCG/ML INJECTION SOLUTION 30 9594 CYANOCOBALAMIN Inactive MAGNESIUM GLUCONATE 250 MG ORAL TABLET 1 tab tid 23/10/23 MAGNESIUM GLUCONATE 250 MG ORAL TABLET 169291 MAGNESIUM GLUCONATE Inactive LOMOTIL 2.5-0.025 MG ORAL TABLET 1 tab by mouth prn 20 23/10/23 LOMOTIL 2.5-0.025 MG ORAL TABLET 2838786 DIPHENOXYLATE-ATROPINE Inac tive FLORANEX ORAL PACKET 1 pack three times daily, for bowel health FLORANEX ORAL PACKET 59901435063 LACTOBACILLUS Inactive IRON 325 (65 Fe) MG ORAL TABLET 1 every other day 2015 IRON 325 (65 Fe) MG ORAL TABLET 896189 FERROUS SULFATE Inactive FLAGYL 500 MG ORAL TABLET 1 pill by mouth three times daily, for diarrhea FLAGYL 500 MG ORAL TABLET 490416 METRONIDAZOLE I nactive BACTRIM DS 800-160 MG ORAL TABLET 1 pill by mouth twice claudio y, for UTI BACTRIM DS 800-160 MG ORAL TABLET 570157 SULFAMETHOXAZOLE-TRIMETHOPRIM Inactive Advance Directives Directive Description Start [...] ... - Chemistry sodium, serum 141 mmol/L 752-770 5608/01/10 potassium, serum 3.7 mmol/L 3.5-5.2 chloride, serum 101 mmol/L 98-107 carbon dioxide, venous blood 31.0 mmol/L 21.0-32 .0 blood glucose 96 mg/dL 65-95 calcium, serum 9.5 mg/dL 8.5-10.1 urea nitrogen, blood 21 mg/dL 7-18 creatinine, serum 1.40 mg/dL 0.60-1.30 Estimated Glomerular Filtration Rate (calc) 39 (?) mL/min/1.73m2 = OR > 60 mL/min cholesterol, serum 211 mg/dL 772-846 2342/01/10 triglyceride, serum, fasting 77 mg/dL 30-200 HDL [...] 0.82 ng/dL 0.59-1.17 sodium, serum 142 mmol/L 085-455 0854/04/16 carbon dioxide, venous blood 30.0 mmol/L 21.0-32 [...] 50-136 Lab Report: Free Thyroxine (L) - Communications Electrician Supervisor ry thyroxine, serum, free 0.82 ng/dL 0.59-1.17 Lab Report: Renal Panel, Magnesium - Chelle radha sodium, serum 142 mmol/L 383-674 5139/11/02 potassium, serum 3.4 mmol/L 3.5-5.2 chloride, serum [...] 0.59-1.17 Encounters Code Encounter Date Provider Facility CPT-01047 [id number] Vst-Est Level III 09:15:19 [facility] [place] [facility] Level 4 Est. Patient 15:35:24 CONTROL OFFICER MANAGER Adam Yates MD [facility] CPT-23991 Level 3 New Patient 12:08:54 CONTROL OFFICER MANAGER Adam Yates MD [facility]-16276 [id number] Vst-Est Level IV 19:48:30 CONTROL OFFICER MANAGER Tracy Holt [facility] [place] [facility]-04530 [id number] Vst-Est Level III 14:29:19 CDT Fiorella Holt [facility] [place] CPT-61746 Level 2 Est. Patient 14:58:26 CDT Kylie Lund [facility] [place] CPT-87530 Level 3 Est. Patient 08:15:24 CONTROL OFFICER MANAGER Kylie boyd [facility] [place] CPT-94746 Level 2 Est. Patient 14:27:16 CONTROL OFFICER MANAGER Kylie Lund [facility] [place] CPT-44957 Level 3 Est. Patient 17:54:48 CDT Kylie boyd [facility] CPT-10474 Level 3 Est. Patient 16:26:30 CDT Kina blackmon [facility] CPT-16300 Level 3 New Patient 16:22:01 CONTROL OFFICER MANAGER Adam Yates MD [facility] CPT-67086 Level 4 Est. Patient 17:00:48 CDT [facility] Level 3 Est. Patient 13:15:54 CDT Kylie Lund [facility] CPT-55609 Level 3 Est. Patient 09:10:11 CDT Kylie Lund [facility] CPT-28687 Level 4 Est. Patient 12:08:30 CONTROL OFFICER MANAGER Hope cohn MD [facility] CPT-57945 Level 4 Est. Patient 19:08:42 CONTROL OFFICER MANAGER Hope cohn MD PhD [facility] CPT-45019 Level 4 Est. Patient 20:04:51 CDT Hope cohn MD [facility] CPT-43620 Level 3 New Patient 01:46:11 CONTROL OFFICER MANAGER Hope landers MD [facility] Procedures Code Procedure Name Date Entry Date Standard Desc ription CPT-62032 Venipuncture Draw Fee 10:06:15 CDT CPT-20293 Bone Density - XRAY USE ONLY 11:51:35 CDT 2 CPT-90845 Free T4 - LAB USE ONLY 11:44:37 CDT CPT-39288 TSH - LAB USE ONLY 11:44:37 CDT CPT-11413 Venipuncture Draw Fee 11:44:37 CDT CPT-J0897 Prolia 60 mg 10:36:55 CDT CPT-59393 Abx/Therapy Injection 10:36:55 CDT CPT-33628 Venipuncture Draw Fee 13:34:11 CDT CPT-G0439 Subsequent Annual Wellness Exam 09:15:19 CDT CPT-15711 Postop F/U Visit 15:45:41 CDT CPT-17961 Sono Soft Tissue Head and Neck - XRAY US E ONLY 11:56:06 CONTROL OFFICER MANAGER CPT-28634 Abx/Therapy Injection 09:40:08 CONTROL OFFICER MANAGER CPT-J0897 Prolia 60 mg 09:40:08 CONTROL OFFICER MANAGER CPT-43000 First Vx - Ix admin for Medicare patients 02/08 10:02:45 CDT CPT-91098 Fluzone Quadrivalent Intramuscular Suspe nsion 0.5 ML 10:02:45 CDT CPT-54552 Magnesium - LAB USE ONLY 09:41:00 CDT 12/09 CPT-82579 Renal Panel - LAB USE ONLY 09:41:00 CDT 201 09/17/01 CPT-79126 Venipuncture Draw Fee 09:41:00 CDT CPT-84856 Calcium - LAB USE ONLY 17:25:11 CDT CPT-J0897 Prolia 60 mg 15:10:59 CDT CPT-08428 Abx/Therapy Injection 15:10:59 CDT CPT-G0439 Subsequent Annual Wellness Exam 14:29:19 CDT CPT-89333 Venipuncture Draw Fee 10:59:04 CDT CPT-16495 CMP - LAB USE ONLY 10:59:04 CDT CPT-61869 CBC with Diff - LAB USE ONLY 10:59:03 CDT 2 CPT-J0897 Prolia 60 mg 15:46:54 CONTROL OFFICER MANAGER CPT-58307 Abx/Therapy Injection 15:46:54 CONTROL OFFICER MANAGER CPT-96746 Microalbumin - LAB USE ONLY 09:41:32 CONTROL OFFICER MANAGER 20 23/01/15 CPT-64275 Free T4 - LAB USE ONLY 09:41:32 CONTROL OFFICER MANAGER CPT-56539 TSH - LAB USE ONLY 09:41:32 CONTROL OFFICER MANAGER CPT-70573 BMP - LAB USE ONLY 09:41:32 CONTROL OFFICER MANAGER CPT-24990 Venipuncture Draw Fee 09:41:32 CONTROL OFFICER MANAGER CPT-43171 First Vx - Ix admin for Medicare patients 11:19:30 CDT CPT-89063 Fluzone High-Dose Intramuscular Suspension 12/07 11:19:30 CDT CPT-J0897 Prolia 60 mg 14:55:42 CDT CPT-49917 Abx/Therapy Injection 14:55:42 CDT CPT-96466 Bone Density - XRAY USE ONLY 10:27:12 CDT 2 CPT-G0439 Subsequent Annual Wellness Exam 17:54:53 CDT CPT-33066 Foot, left, comp min 3V - XRAY USE ONLY 12:22:49 CDT CPT-G0009 Administration of Pneumococcal Vaccine 3 12:18:00 CDT CPT-44032 Pneumovax 23 Injection Injectable 25 MCG /0.5ML 12:18:00 CDT CPT-J0897 Prolia 60 mg 14:14:16 CONTROL OFFICER MANAGER CPT-13931 Abx/Therapy Injection 14:14:15 CONTROL OFFICER MANAGER CPT-45402 Lipid - LAB USE ONLY 10:01:52 CONTROL OFFICER MANAGER 2 CPT-80639 Calcium - LAB USE ONLY 10:01:51 CONTROL OFFICER MANAGER CPT-73750 Venipuncture Draw Fee 10:01:51 CONTROL OFFICER MANAGER CPT-LR Lesion Removal 16:22:01 CONTROL OFFICER MANAGER CPT-20514 TSH - LAB USE ONLY 14:26:02 CDT CPT-04844 CMP - LAB USE ONLY 14:26:01 CDT CPT-12933 CBC with Diff - LAB USE ONLY 14:26:01 CDT 2 CPT-21256 Venipuncture Draw Fee 14:26:01 CDT CPT-90790 First Vx - Ix admin for Medicare patients 13:27:08 CDT CPT-41545 Fluzone High-Dose Intramuscular Suspension 11/26 13:27:08 CDT CPT-G0438 Initial Annual Wellness Exam 14:19:57 CD T CPT-G0009 Administration of Pneumococcal Vaccine 9 11:36:25 CDT CPT-72514 Prevnar 13 Intramuscular Suspension 1 1:36:25 CDT CPT-86004 Prevnar 13 Intramuscular Suspension 1 0:40:58 CDT CPT-J0897 Prolia 60 mg 10:37:16 CDT CPT-02328 Abx/Therapy Injection 10:37:16 CDT CPT-J0897 Prolia 60 mg 16:09:34 CONTROL OFFICER MANAGER CPT-J0897 Prolia 60 mg 11:10:35 CONTROL OFFICER MANAGER CPT-72204 Abx/Therapy Injection 11:10:35 CONTROL OFFICER MANAGER CPT-000 Give Appropriate Flu Vaccine 17:01:15 CONTROL OFFICER MANAGER 2 CPT-14488 Fluzone High Dose (65+) 15:03:08 CONTROL OFFICER MANAGER 02/15 CPT-60732 Immunization Single Admin 15:03:08 CONTROL OFFICER MANAGER 2014 CPT-OV Office Visit 15:58:06 CDT CPT-J0897 Prolia 60 mg 08:45:38 CDT CPT-46206 Abx/Therapy Injection 08:45:38 CDT CPT-J3420 Vitamin B12 1000mcg (Cyanocobalamin) 09:26:20 CONTROL OFFICER MANAGER CPT-74709 Abx/Therapy Injection 09:26:20 CONTROL OFFICER MANAGER CPT-J3420 Vitamin B12 1000mcg (Cyanocobalamin) 09:44:40 CONTROL OFFICER MANAGER CPT-55678 Abx/Therapy Injection 09:44:40 CONTROL OFFICER MANAGER CPT-J3420 Vitamin B12 1000mcg (Cyanocobalamin) 09:15:54 CONTROL OFFICER MANAGER CPT-94087 Abx/Therapy Injection 09:15:54 CONTROL OFFICER MANAGER CPT-J3420 Vitamin B12 1000mcg (Cyanocobalamin) 09:46:44 CONTROL OFFICER MANAGER CPT-35487 Abx/Therapy Injection 09:46:44 CONTROL OFFICER MANAGER CPT-J3420 Vitamin B12 1000mcg (Cyanocobalamin) 09:47:34 CONTROL OFFICER MANAGER CPT-89016 Abx/Therapy Injection 09:47:34 CONTROL OFFICER MANAGER CPT-J3420 Vitamin B12 1000mcg (Cyanocobalamin) 14:35:50 CONTROL OFFICER MANAGER CPT-J3420 Vitamin B12 1000mcg (Cyanocobalamin) 09:25:05 CONTROL OFFICER MANAGER CPT-90219 Abx/Therapy Injection 09:25:05 CONTROL OFFICER MANAGER CPT-G0008 Administration of Influenza Virus Vaccine 13:36:47 CDT CPT-51045 Fluzone High-Dose Intramuscular Suspension 11/15 13:36:47 CDT CPT-J0897 Prolia 60 mg 08:50:41 CDT CPT-12321 Abx/Therapy Injection 08:50:41 CDT CPT-45908 Bone Density 12:06:12 CDT CPT-18161 Bone Density 08:54:40 CDT CPT-OV Office Visit 15:37:02 CDT CPT-72382 Postop F/U Visit 15:47:49 CDT CPT-59613 Postop F/U Visit 15:21:02 CDT CPT-[facility] Transitional Care Mgmt-High 07:52:27 CDT 20 20/06/01 CPT-27533 Venipuncture Draw Fee 13:51:18 CDT CPT-53579 Venipuncture Draw Fee 10:14:55 CONTROL OFFICER MANAGER CPT-75734 Venipuncture Draw Fee 13:39:45 CONTROL OFFICER MANAGER CPT-OV Office Visit 15:11:22 CONTROL OFFICER MANAGER CPT-80180 Venipuncture Draw Fee 09:20:49 CONTROL OFFICER MANAGER CPT-66741 Venipuncture Draw Fee 16:52:15 CONTROL OFFICER MANAGER CPT-50695 Venipuncture Draw Fee 10:37:24 CONTROL OFFICER MANAGER CPT-37560 Venipuncture Draw Fee 08:21:21 CONTROL OFFICER MANAGER CPT-40892 Venipuncture Draw Fee 08:30:20 CONTROL OFFICER MANAGER CPT-39544 Venipuncture Draw Fee 14:53:21 CONTROL OFFICER MANAGER CPT-52511 Venipuncture Draw Fee 09:40:56 CONTROL OFFICER MANAGER CPT-01580 Venipuncture Draw Fee 10:30:47 CONTROL OFFICER MANAGER CPT-10239 Venipuncture Draw Fee 10:46:17 CONTROL OFFICER MANAGER CPT-74357 Venipuncture Draw Fee 11:12:45 CONTROL OFFICER MANAGER CPT-65775 Venipuncture Draw Fee 09:53:33 CONTROL OFFICER MANAGER CPT-73508 Venipuncture Draw Fee 11:53:51 CONTROL OFFICER MANAGER CPT-54678 Venipuncture Draw Fee 10:33:50 CONTROL OFFICER MANAGER CPT-78339 Venipuncture Draw Fee 10:05:01 CONTROL OFFICER MANAGER CPT-52783 Venipuncture Draw Fee 14:32:52 CONTROL OFFICER MANAGER CPT-28480 Venipuncture Draw Fee 09:46:13 CONTROL OFFICER MANAGER CPT-30635 Venipuncture Draw Fee 11:34:27 CONTROL OFFICER MANAGER CPT-08452 Venipuncture Draw Fee 13:17:16 CONTROL OFFICER MANAGER CPT-12271 Venipuncture Draw Fee 12:05:39 CDT CPT-82211 Venipuncture Draw Fee 12:49:12 CDT CPT-44902 Venipuncture Draw Fee 12:37:18 CDT CPT-32040 Venipuncture Draw Fee 10:57:11 CDT CPT-49759 Venipuncture Draw Fee 13:47:40 CDT CPT-45971 Venipuncture Draw Fee 10:02:17 CDT CPT-68744 TB Tubersol 17:32:32 CDT CPT-OV Office Visit 16:21:53 CDT CPT-OV Office Visit 15:49:22 CDT CPT-OV Office Visit 17:16:31 CDT CPT-OV Office Visit 10:43:31 CDT
--- OUTSIDE RECORDS SUMMARY | 2019-02-09 11:39 | XMS REPORT | Clinical Summary ---
Author Author Renaldo, Florecita Munoz Organization [facility] [place] Art Address Unknown Phone Unavailable Allergies, Adverse Reactions, [...] PhD Hyperpotassemia GERD 530.81 Resolved Kylie Yokum CONTINUOUS IMPROVEMENT MANAGER Esophageal reflux Health maintenance exam V70.0 Resolved Adolfo Yates MD Routine general medical examination at a health care facility Anemia 285.9 Resolved Kylie Holt CONTINUOUS IMPROVEMENT MANAGER Anemia, unspecified Personal history of malignant neoplasm of large intestine V10.05 Active Adam Yates MD Personal history of malignant neoplasm of large intestine Hypomagnesemia 275.2 Resolved Kylie Holt CONTINUOUS IMPROVEMENT MANAGER Disorders of magnesium metabolism Weakness 780.79 Resolved [...] Sebaceous cyst, scalp 706.2 Resolved Kylie Yokum CONTINUOUS IMPROVEMENT MANAGER Sebaceous cyst Cervical lymphadenopathy, anterior, left 785.6 Resolv ed Kylie Yokum CONTINUOUS IMPROVEMENT MANAGER Enlargement of lymph nodes Need for prophylactic vaccination and inoculation against in fluenza V04.81 Resolved Adam Yates MD Need for prophylactic vaccination and inoculation against influenza Preventive health care V70.0 Resolved Kylie Lundu m CONTINUOUS IMPROVEMENT MANAGER Routine general medical examination at a health care facility Thyroid nodule, left 241.0 Resolved Selena Yates MD Nontoxic uninodular goiter Screening mammogram V76.12 Resolved Kylie Yokum A PRN Other screening mammogram Mandy 706.2 Resolved Kylie Yokum CONTINUOUS IMPROVEMENT MANAGER Sebaceous cyst Colon cancer, ascending 153.6 Resolved Kylie Yok um CONTINUOUS IMPROVEMENT MANAGER Malignant neoplasm of ascending colon Foot pain, left 729.5 Resolved Kylie Yokum CONTINUOUS IMPROVEMENT MANAGER Pain in limb Splinter 919.6 Resolved Kylie Yokum CONTINUOUS IMPROVEMENT MANAGER Superficial foreign body (splinter) of other, multiple, and unspecified sites, without major open wound and without mention of infection Rash 782.1 Resolved Kylie Yokum CONTINUOUS IMPROVEMENT MANAGER Rash and other nonspecific skin eruption Cyst 706.2 Resolved Kylie Yokum CONTINUOUS IMPROVEMENT MANAGER Sebaceous cyst Body Mass Index 23.0-23.9 Adult Refinement 2017 Kylie Yokum CONTINUOUS IMPROVEMENT MANAGER Body Mass Index between 19-24, adult BMI [...] RIGHT LOWER QUADRANT ICD-789.03 Inactive Kina Joshua CONTINUOUS IMPROVEMENT MANAGER ADENOCARCINOMA, COLON, 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 Dick Yates MD ABDOMINAL PAIN, GENERALIZED ICD-789.07 Inactive Hope Benavidez MD PhD FEVER UNSPECIFIED ICD-780.60 Inactive Hope cohn MD PhD UNSPECIFIED VENOUS INSUFFICIENCY ICD-459.81 Elda ctive Adam Yates MD ADENOCARCINOMA, 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 Inac tive Hope Benavidez MD PhD Hyperkalemia ICD-276.7 Inactive Hope Benavidez MD PhD GERD ICD-530.81 Inactive Kylie Yanet CONTINUOUS IMPROVEMENT MANAGER 2015 Health maintenance exam ICD-V70.0 Bam Yates MD Anemia ICD-285.9 Inactive Kylie Yanet CONTINUOUS IMPROVEMENT MANAGER 07/24 Hypomagnesemia ICD-275.2 Inactive Kylie Holt CONTINUOUS IMPROVEMENT MANAGER Weakness ICD-780.79 Inactive Hope Benavidez MD P [...] colon ICD-153.6 Inac tive Adam Yates MD Cervical lymphadenopathy, anterior, left ICD-785.6 Inactive Kylie Yokum CONTINUOUS IMPROVEMENT MANAGER Need for prophylactic vaccination and inoculation against in fluenza ICD-V04.81 Inactive Adam Yates MD Preventive health care ICD-V70.0 Inactive Ka thi Yokum CONTINUOUS IMPROVEMENT MANAGER Thyroid nodule, left ICD-241.0 Inactive Selena Yates MD Screening mammogram ICD-V76.12 Inactive Kylie Yokum CONTINUOUS IMPROVEMENT MANAGER Mandy ICD-706.2 Inactive Kylie Yokum CONTINUOUS IMPROVEMENT MANAGER 07/20 Colon cancer, ascending ICD-153.6 Inactive K athi Yokum CONTINUOUS IMPROVEMENT MANAGER Foot pain, left ICD-729.5 Inactive Kylie Yokum CONTINUOUS IMPROVEMENT MANAGER Splinter ICD-919.6 Inactive Kylie Yokum CONTINUOUS IMPROVEMENT MANAGER 2017 Rash ICD-782.1 Inactive Kylie Yokum CONTINUOUS IMPROVEMENT MANAGER 07/25 Cyst ICD-706.2 Inactive Kylie Yokum CONTINUOUS IMPROVEMENT MANAGER 08/11 Unspecified fall, initial encounter ICD-E888.9 Inactive Kylie Yokum CONTINUOUS IMPROVEMENT MANAGER Eye pain, left ICD-379.91 Inactive Kylie Yokum CONTINUOUS IMPROVEMENT MANAGER Pharyngitis, acute ICD-074.0 Inactive Kavin Yates MD Hypomagnesemia ICD-275.2 Inactive Adam Franklin MD Sebaceous cyst, scalp ICD-706.2 Inactive Tracy Holt APRN Hypokalemia ICD-276.8 Inactive Adam enamorado MD Enlarged [...] other medications for hypothyroidism. LEVOTHYROX INE SODIUM 96085263282 Active Kylie Holt APRN Active VOLTAREN 1 % TRANSDERMAL GEL apply 2 grams q 6-8 hour to left arm as needed for pain DICLOFENAC SODIUM 49171271130 Active Kylie Holt APR N Active IMODIUM A-D 2 MG ORAL TABLET 1 tablet twice a day LOPERAMIDE HCL 17544987415 Active Kylie Holt APRN Active COQ10 100 MG ORAL CAPSULE 1 daily COENZYME Q10 242309 55495 Active LETY [place] Active VITAMIN D3 2000 UNIT ORAL CAPSULE Melaleuca-One daily CHOLECALCIFEROL 47199185709 Active Kylie Holt APRN Active PROBIOTIC DAILY ORAL CAPSULE Take one daily PROBIO TIC PRODUCT 93124999716 Active Kylie Holt APRN Active IRON 325 (65 Fe) MG ORAL TABLET 1 every other day FERROUS SULFATE 49933197449 No Longer Active Kylie Yokum CONTINUOUS IMPROVEMENT MANAGER Active FLORANEX ORAL PACKET 1 pack three times daily, for bowel health LACTOBACILLUS 66291434952 No Longer Active Kylie Lundum CONTINUOUS IMPROVEMENT MANAGER Active LOMOTIL 2.5-0.025 MG ORAL TABLET 1 tab by mouth prn 20 23/10/23 DIPHENOXYLATE-ATROPINE 76918953545 No Longer Active Kylie Yokum CONTINUOUS IMPROVEMENT MANAGER Active MAGNESIUM GLUCONATE 250 MG ORAL TABLET 1 tab tid 23/10/23 MAGNESIUM GLUCONATE 70575857821 No Longer Active Kylie Yokum CONTINUOUS IMPROVEMENT MANAGER Active CYANOCOBALAMIN 1000 MCG/ML INJECTION SOLUTION 1 injection ev ruben 2 weeks CYANOCOBALAMIN 64642898366 No Longer Active Kylie Lund um CONTINUOUS IMPROVEMENT MANAGER Active ATENOLOL 25 MG ORAL TABLET 1/2 pill by mouth daily, fo r headaches, blood pressure ATENOLOL 04051222048 Active Kylie Escalonakum CONTINUOUS IMPROVEMENT MANAGER Active PROPRANOLOL HCL 80 MG ORAL TABLET 1 tab tue. and thur. PROPRANOLOL HCL 57829099582 No Longer Active Hope Benavidez MD PhD A ctive VITAMIN D3 4000 IU 1 tab 3 times daily VITAMIN D3 4000 IU No Longer Active Hope Benavidez MD PhD Active BACTRIM DS 800-160 MG ORAL TABLET 1 pill by mouth twice claudio y, for UTI SULFAMETHOXAZOLE-TRIMETHOPRIM 12101604641 No Longer Active Hope Benavidez MD PhD Active PROLIA 60 MG/ML SUBCUTANEOUS SOLUTION 1 shot every 6 months for osteoprosis DENOSUMAB 78588822897 Active Hope Benavidez MD PhD Active CALCIUM + D + K 750-500-40 MG-UNT-MCG ORAL TABLET 1 tab by m out twice daily CALCIUM-VITAMIN D-VITAMIN K 71547644268 Active Hope valdez MD PhD Active DAILY VALUE MULTIVITAMIN ORAL TABLET 1 tab by mouth twice daily 201 05/16/14 MULTIPLE VITAMIN 36929787727 Active Hope Benavidez MD PhD Acti ve FISH OIL 306 MG CAPS 1 tab by mouth three times daily OMEGA-3 FATTY ACIDS 19205718790 Active Hope Benavidez MD PhD Active LUTEIN 10 MG ORAL TABLET 1 tab daily LUTEIN 73568506 408 Active Hope Benavidez MD PhD Active TRIAMTERENE-HCTZ 37.5-25 MG ORAL TABLET 1 tab by mouth daily 10/22 TRIAMTERENE-HCTZ 70900837281 Active Kylie Holt CONTINUOUS IMPROVEMENT MANAGER Active CYCLOBENZAPRINE HCL 10 MG ORAL TABLET 1 tablet by mout h three times daily as needed for headaches CYCLOBENZAPRINE HCL 30045266061 No Longer Active Adam Yates MD Active OMEPRAZOLE 20 MG ORAL CAPSULE DELAYED RELEASE 1 tablet by mo [facility] daily for GERD OMEPRAZOLE 49700946886 No Longer Active Adam Yates MD Active ZOFRAN 8 MG ORAL TABLET 1 tab by mouth every 12 hours prn 4 ONDANSETRON HCL 46921677580 No Longer Active Adam Yates MD Active PHENADOZ 25 MG RECTAL SUPPOSITORY 1 every 4 hrs. PRN 2 PROMETHAZINE HCL 01945025701 No Longer Active Adam Yates MD A ctive POTASSIUM CHLORIDE 20 MEQ ORAL PACKET by mouth twice a day prn 2 POTASSIUM CHLORIDE 82292593899 No Longer Active Adam Carpenter MD Active PROMETHAZINE HCL 25 MG ORAL TABLET 1 Q. 4 hr. PRN PROMETHAZINE HCL 33714573274 No Longer Active Adam Yates MD Active INNOPRAN XL 120 MG ORAL CAPSULE EXTENDED RELEASE 24 HO UR Take one by mouth daily PROPRANOLOL HCL SR BEADS 17804927038 No Longer Active Adam Yates MD Active FLAGYL 500 MG ORAL TABLET 1 pill by mouth three times daily, for diarrhea METRONIDAZOLE 41387952688 No Longer Active Hope landers MD PhD Active DYAZIDE 37.5-25 MG ORAL CAPSULE 1 qd TRIA MTERENE-HCTZ 91246057461 No Longer Active Hope Benavidez MD PhD Active PROZAC 20 MG ORAL CAPSULE 1 q d FLUOXETINE HCL 20109392285 No Longer Active Hope Benavidez MD PhD Active SIMVASTATIN 40 MG ORAL TABLET 1 qd SIMVAS TATIN 08461749649 No Longer Active Adam Yates MD Active MELOXICAM 15 MG ORAL TABLET 1 qd MELOXICAM 11698368531 No Longer Active Adam Yates MD Active EXCEDRIN EXTRA STRENGTH 250-250-65 MG ORAL TABLET 1-2 q6h [place] N headache [id number] 25111941139 Active Hope Benavidez MD PhD Active FLAGYL 500 MG ORAL TABLET 1 qid METRONIDAZOL E 04472270256 No Longer Active Adam Yates MD Active LEVAQUIN 750 MG ORAL TABLET 1 qd LEVOFLOXAC IN 51393280935 No Longer Active Adam Yates MD Active ADULT ASPIRIN LOW STRENGTH 81 MG ORAL TABLET DISINTEGRATING 1 qd ASPIRIN 02511430144 Active Hope Benavidez MD PhD Active LEVAQUIN 750 MG ORAL TABLET 1 qd LEVAQUIN 750 MG ORAL TABLET 768591 LEVOFLOXACIN Inactive FLAGYL 500 MG ORAL TABLET 1 qid FLAGYL 500 MG ORAL TABLET 155978 METRONIDAZOLE Inactive MELOXICAM 15 MG ORAL TABLET 1 qd MELOXICAM 15 MG ORAL TABLET 708393 MELOXICAM Inactive SIMVASTATIN 40 MG ORAL TABLET 1 qd SIMVASTATIN 40 MG ORAL TABLET 826838 SIMVASTATIN Inactive PROZAC 20 MG ORAL CAPSULE 1 q d PROZAC 20 MG ORAL CAPSULE 687313 FLUOXETINE HCL Inactive DYAZIDE 37.5-25 MG ORAL CAPSULE 1 qd 5 DYAZIDE 37.5-25 MG ORAL CAPSULE 569049 TRIAMTERENE-HCTZ Inactive INNOPRAN XL 120 MG ORAL CAPSULE EXTENDED RELEASE 24 HO UR Take one by mouth daily INNOPRAN XL 120 MG ORAL CAPSULE EXTENDED RELEASE 24 HOUR PROPRANOLOL HCL SR BEADS Inactive PROMETHAZINE HCL 25 MG ORAL TABLET 1 Q. 4 hr. PRN 2013 PROMETHAZINE HCL 25 MG ORAL TABLET 068432 PROMETHAZINE HCL Inactive POTASSIUM CHLORIDE 20 MEQ ORAL PACKET by mouth twice a day prn 2 POTASSIUM CHLORIDE 20 MEQ ORAL PACKET 0147828 POTASSIUM CHLORIDE Inactive PHENADOZ 25 MG RECTAL SUPPOSITORY 1 every 4 hrs. PRN 2 PHENADOZ 25 MG RECTAL SUPPOSITORY 729634 PROMETHAZINE HCL Inactive ZOFRAN 8 MG ORAL TABLET 1 tab by mouth every 12 hours prn 4 ZOFRAN 8 MG ORAL TABLET 581760 ONDANSETRON HCL Inactive OMEPRAZOLE 20 MG ORAL CAPSULE DELAYED RELEASE 1 tablet by mo uth daily for GERD OMEPRAZOLE 20 MG ORAL CAPSULE DELAYED RELEASE 19 8051 OMEPRAZOLE Inactive CYCLOBENZAPRINE HCL 10 MG ORAL TABLET 1 tablet by mout h three times daily as needed for headaches CYCLOBENZAPRINE HCL 10 MG ORAL TABLET 194739 CYCLOBENZAPRINE HCL Inactive VITAMIN D3 4000 IU 1 tab 3 times daily VITAMIN D3 4000 IU Inactive PROPRANOLOL HCL 80 MG ORAL TABLET 1 tab tue. and thur. PROPRANOLOL HCL 80 MG ORAL TABLET 738502 PROPRANOLOL HCL Inacti ve CYANOCOBALAMIN 1000 MCG/ML INJECTION SOLUTION 1 injection ev ruben 2 weeks CYANOCOBALAMIN 1000 MCG/ML INJECTION SOLUTION 30 9594 CYANOCOBALAMIN Inactive MAGNESIUM GLUCONATE 250 MG ORAL TABLET 1 tab tid 23/10/23 MAGNESIUM GLUCONATE 250 MG ORAL TABLET 316849 MAGNESIUM GLUCONATE Inactive LOMOTIL 2.5-0.025 MG ORAL TABLET 1 tab by mouth prn 20 23/10/23 LOMOTIL 2.5-0.025 MG ORAL TABLET 0974294 DIPHENOXYLATE-ATROPINE Inac tive FLORANEX ORAL PACKET 1 pack three times daily, for bowel health FLORANEX ORAL PACKET 02721889610 LACTOBACILLUS Inactive IRON 325 (65 Fe) MG ORAL TABLET 1 every other day 2015 IRON 325 (65 Fe) MG ORAL TABLET 801574 FERROUS SULFATE Inactive FLAGYL 500 MG ORAL TABLET 1 pill by mouth three times daily, for diarrhea FLAGYL 500 MG ORAL TABLET 470103 METRONIDAZOLE I nactive BACTRIM DS 800-160 MG ORAL TABLET 1 pill by mouth twice claudio y, for UTI BACTRIM DS 800-160 MG ORAL TABLET 245897 SULFAMETHOXAZOLE-TRIMETHOPRIM Inactive Advance Directives Directive Description Start [...] ... - Chemistry sodium, serum 141 mmol/L 256-461 3377/01/10 potassium, serum 3.7 mmol/L 3.5-5.2 chloride, serum 101 mmol/L 98-107 carbon dioxide, venous blood 31.0 mmol/L 21.0-32 .0 blood glucose 96 mg/dL 65-95 calcium, serum 9.5 mg/dL 8.5-10.1 urea nitrogen, blood 21 mg/dL 7-18 creatinine, serum 1.40 mg/dL 0.60-1.30 Estimated Glomerular Filtration Rate (calc) 39 (?) mL/min/1.73m2 = OR > 60 mL/min cholesterol, serum 211 mg/dL 343-788 7713/01/10 triglyceride, serum, fasting 77 mg/dL 30-200 HDL [...] 0.82 ng/dL 0.59-1.17 sodium, serum 142 mmol/L 551-838 3248/04/16 carbon dioxide, venous blood 30.0 mmol/L 21.0-32 [...] 50-136 Lab Report: Free Thyroxine (L) - Desk Representative ry thyroxine, serum, free 0.82 ng/dL 0.59-1.17 Lab Report: Renal Panel, Magnesium - Chelle radha sodium, serum 142 mmol/L 963-158 5439/11/02 potassium, serum 3.4 mmol/L 3.5-5.2 chloride, serum [...] 0.59-1.17 Encounters Code Encounter Date Provider Facility CPT-31118 [id number] Vst-Est Level III 09:15:[facility] Level 4 Est. Patient 15:35:24 CIRCUS ROUSTABOUT Adam Yates MD [facility] CPT-56296 Level 3 New Patient 12:08:54 CIRCUS ROUSTABOUT Adam Yates MD [facility] CPT-86335 [id number] Vst-Est Level IV 19:48:30 CIRCUS ROUSTABOUT Tracy Holt [facility] CPT-41303 [id number] Vst-Est Level III 14:29:19 CDT Fiorella Holt [facility] CPT-86014 Level 2 Est. Patient 14:58:26 CDT Kylie boyd [facility] CPT-22649 Level 3 Est. Patient 08:15:24 CIRCUS ROUSTABOUT Kylie boyd [facility] CPT-90552 Level 2 Est. Patient 14:27:16 CIRCUS ROUSTABOUT Kylie boyd [facility] CPT-19252 Level 3 Est. Patient 17:54:48 CDT Kylie boyd [facility] CPT-37169 Level 3 Est. Patient 16:26:30 CDT Kina blackmon [facility] CPT-03740 Level 3 New Patient 16:22:01 CIRCUS ROUSTABOUT Adam Yates MD [facility] CPT-08785 Level 4 Est. Patient 17:00:48 CDT Kylie Lund [id number] Level 3 Est. Patient 13:15:54 CDT Kylie Lund [facility] CPT-95070 Level 3 Est. Patient 09:10:11 CDT Kylie Lund [facility] CPT-95947 Level 4 Est. Patient 12:08:30 CIRCUS ROUSTABOUT Hope cohn MD [facility] CPT-68336 Level 4 Est. Patient 19:08:42 CIRCUS ROUSTABOUT Hope cohn MD [facility] CPT-41755 Level 4 Est. Patient 20:04:51 CDT Hope cohn MD [facility] CPT-89242 Level 3 New Patient 01:46:11 CIRCUS ROUSTABOUT Hope landers MD [facility] Procedures Code Procedure Name Date Entry Date Standard Desc ription CPT-G0008 Administration of Influenza Virus Vaccine 15:08:32 CDT CPT-37336 Flublok Quadrivalent (Flu) Syringe IM(Ar dicare) 15:08:32 CDT CPT-88243 Venipuncture Draw Fee 10:06:15 CDT CPT-13721 Bone Density - XRAY USE ONLY 11:51:35 CDT 2 CPT-88113 Free T4 - LAB USE ONLY 11:44:37 CDT CPT-37496 TSH - LAB USE ONLY 11:44:37 CDT CPT-11434 Venipuncture Draw Fee 11:44:37 CDT CPT-J0897 Prolia 60 mg 10:36:55 CDT CPT-78026 Abx/Therapy Injection 10:36:55 CDT CPT-77217 Venipuncture Draw Fee 13:34:11 CDT CPT-G0439 Subsequent Annual Wellness Exam 09:15:19 CDT CPT-45350 Postop F/U Visit 15:45:41 CDT CPT-66789 Sono Soft Tissue Head and Neck - XRAY US E ONLY 11:56:06 CIRCUS ROUSTABOUT CPT-33652 Abx/Therapy Injection 09:40:08 CIRCUS ROUSTABOUT CPT-J0897 Prolia 60 mg 09:40:08 CIRCUS ROUSTABOUT CPT-03751 First Vx - Ix admin for Medicare patients 02/08 10:02:45 CDT CPT-14820 Fluzone Quadrivalent Intramuscular Suspe nsion 0.5 ML 10:02:45 CDT CPT-17622 Magnesium - LAB USE ONLY 09:41:00 CDT 12/09 CPT-83787 Renal Panel - LAB USE ONLY 09:41:00 CDT 201 09/17/01 CPT-76699 Venipuncture Draw Fee 09:41:00 CDT CPT-28757 Calcium - LAB USE ONLY 17:25:11 CDT CPT-J0897 Prolia 60 mg 15:10:59 CDT CPT-95158 Abx/Therapy Injection 15:10:59 CDT CPT-G0439 Subsequent Annual Wellness Exam 14:29:19 CDT CPT-31516 Venipuncture Draw Fee 10:59:04 CDT CPT-73690 CMP - LAB USE ONLY 10:59:04 CDT CPT-79222 CBC with Diff - LAB USE ONLY 10:59:03 CDT 2 CPT-J0897 Prolia 60 mg 15:46:54 CIRCUS ROUSTABOUT CPT-31253 Abx/Therapy Injection 15:46:54 CIRCUS ROUSTABOUT CPT-13377 Microalbumin - LAB USE ONLY 09:41:32 CIRCUS ROUSTABOUT 20 23/01/15 CPT-30478 Free T4 - LAB USE ONLY 09:41:32 CIRCUS ROUSTABOUT CPT-46705 TSH - LAB USE ONLY 09:41:32 CIRCUS ROUSTABOUT CPT-20421 BMP - LAB USE ONLY 09:41:32 CIRCUS ROUSTABOUT CPT-17908 Venipuncture Draw Fee 09:41:32 CIRCUS ROUSTABOUT CPT-37279 First Vx - Ix admin for Medicare patients 11:19:30 CDT CPT-37640 Fluzone High-Dose Intramuscular Suspension 12/07 11:19:30 CDT CPT-J0897 Prolia 60 mg 14:55:42 CDT CPT-20743 Abx/Therapy Injection 14:55:42 CDT CPT-09095 Bone Density - XRAY USE ONLY 10:27:12 CDT 2 CPT-G0439 Subsequent Annual Wellness Exam 17:54:53 CDT CPT-59935 Foot, left, comp min 3V - XRAY USE ONLY 12:22:49 CDT CPT-G0009 Administration of Pneumococcal Vaccine 3 12:18:00 CDT CPT-22492 Pneumovax 23 Injection Injectable 25 MCG /0.5ML 12:18:00 CDT CPT-J0897 Prolia 60 mg 14:14:16 CIRCUS ROUSTABOUT CPT-32174 Abx/Therapy Injection 14:14:15 CIRCUS ROUSTABOUT CPT-18517 Lipid - LAB USE ONLY 10:01:52 CIRCUS ROUSTABOUT 2 CPT-92880 Calcium - LAB USE ONLY 10:01:51 CIRCUS ROUSTABOUT CPT-72278 Venipuncture Draw Fee 10:01:51 CIRCUS ROUSTABOUT CPT-LR Lesion Removal 16:22:01 CIRCUS ROUSTABOUT CPT-31071 TSH - LAB USE ONLY 14:26:02 CDT CPT-73492 CMP - LAB USE ONLY 14:26:01 CDT CPT-04717 CBC with Diff - LAB USE ONLY 14:26:01 CDT 2 CPT-26044 Venipuncture Draw Fee 14:26:01 CDT CPT-85048 First Vx - Ix admin for Medicare patients 13:27:08 CDT CPT-54785 Fluzone High-Dose Intramuscular Suspension 11/26 13:27:08 CDT CPT-G0438 Initial Annual Wellness Exam 14:19:57 CD T CPT-G0009 Administration of Pneumococcal Vaccine 9 11:36:25 CDT CPT-55040 Prevnar 13 Intramuscular Suspension 1 1:36:25 CDT CPT-72637 Prevnar 13 Intramuscular Suspension 1 0:40:58 CDT CPT-J0897 Prolia 60 mg 10:37:16 CDT CPT-64296 Abx/Therapy Injection 10:37:16 CDT CPT-J0897 Prolia 60 mg 16:09:34 CIRCUS ROUSTABOUT CPT-J0897 Prolia 60 mg 11:10:35 CIRCUS ROUSTABOUT CPT-59110 Abx/Therapy Injection 11:10:35 CIRCUS ROUSTABOUT CPT-000 Give Appropriate Flu Vaccine 17:01:15 CIRCUS ROUSTABOUT 2 CPT-56786 Fluzone High Dose (65+) 15:03:08 CIRCUS ROUSTABOUT 02/15 CPT-86847 Immunization Single Admin 15:03:08 CIRCUS ROUSTABOUT 2014 CPT-OV Office Visit 15:58:06 CDT CPT-J0897 Prolia 60 mg 08:45:38 CDT CPT-07048 Abx/Therapy Injection 08:45:38 CDT CPT-J3420 Vitamin B12 1000mcg (Cyanocobalamin) 09:26:20 CIRCUS ROUSTABOUT CPT-08964 Abx/Therapy Injection 09:26:20 CIRCUS ROUSTABOUT CPT-J3420 Vitamin B12 1000mcg (Cyanocobalamin) 09:44:40 CIRCUS ROUSTABOUT CPT-97624 Abx/Therapy Injection 09:44:40 CIRCUS ROUSTABOUT CPT-J3420 Vitamin B12 1000mcg (Cyanocobalamin) 09:15:54 CIRCUS ROUSTABOUT CPT-76012 Abx/Therapy Injection 09:15:54 CIRCUS ROUSTABOUT CPT-J3420 Vitamin B12 1000mcg (Cyanocobalamin) 09:46:44 CIRCUS ROUSTABOUT CPT-48820 Abx/Therapy Injection 09:46:44 CIRCUS ROUSTABOUT CPT-J3420 Vitamin B12 1000mcg (Cyanocobalamin) 09:47:34 CIRCUS ROUSTABOUT CPT-50568 Abx/Therapy Injection 09:47:34 CIRCUS ROUSTABOUT CPT-J3420 Vitamin B12 1000mcg (Cyanocobalamin) 14:35:50 CIRCUS ROUSTABOUT CPT-J3420 Vitamin B12 1000mcg (Cyanocobalamin) 09:25:05 CIRCUS ROUSTABOUT CPT-64420 Abx/Therapy Injection 09:25:05 CIRCUS ROUSTABOUT CPT-G0008 Administration of Influenza Virus Vaccine 13:36:47 CDT CPT-33054 Fluzone High-Dose Intramuscular Suspension 11/15 13:36:47 CDT CPT-J0897 Prolia 60 mg 08:50:41 CDT CPT-91598 Abx/Therapy Injection 08:50:41 CDT CPT-40992 Bone Density 12:06:12 CDT CPT-08990 Bone Density 08:54:40 CDT CPT-OV Office Visit 15:37:02 CDT CPT-44286 Postop F/U Visit 15:47:49 CDT CPT-21729 Postop F/U Visit 15:21:02 CDT CPT-[facility] Transitional Care Mgmt-High 07:52:27 CDT 20 20/06/01 CPT-38001 Venipuncture Draw Fee 13:51:18 CDT CPT-91720 Venipuncture Draw Fee 10:14:55 CIRCUS ROUSTABOUT CPT-29553 Venipuncture Draw Fee 13:39:45 CIRCUS ROUSTABOUT CPT-OV Office Visit 15:11:22 CIRCUS ROUSTABOUT CPT-38718 Venipuncture Draw Fee 09:20:49 CIRCUS ROUSTABOUT CPT-82787 Venipuncture Draw Fee 16:52:15 CIRCUS ROUSTABOUT CPT-02738 Venipuncture Draw Fee 10:37:24 CIRCUS ROUSTABOUT CPT-54071 Venipuncture Draw Fee 08:21:21 CIRCUS ROUSTABOUT CPT-25676 Venipuncture Draw Fee 08:30:20 CIRCUS ROUSTABOUT CPT-25320 Venipuncture Draw Fee 14:53:21 CIRCUS ROUSTABOUT CPT-31420 Venipuncture Draw Fee 09:40:56 CIRCUS ROUSTABOUT CPT-58707 Venipuncture Draw Fee 10:30:47 CIRCUS ROUSTABOUT CPT-66214 Venipuncture Draw Fee 10:46:17 CIRCUS ROUSTABOUT CPT-77399 Venipuncture Draw Fee 11:12:45 CIRCUS ROUSTABOUT CPT-31537 Venipuncture Draw Fee 09:53:33 CIRCUS ROUSTABOUT CPT-65359 Venipuncture Draw Fee 11:53:51 CIRCUS ROUSTABOUT CPT-07315 Venipuncture Draw Fee 10:33:50 CIRCUS ROUSTABOUT CPT-60026 Venipuncture Draw Fee 10:05:01 CIRCUS ROUSTABOUT CPT-41151 Venipuncture Draw Fee 14:32:52 CIRCUS ROUSTABOUT CPT-75053 Venipuncture Draw Fee 09:46:13 CIRCUS ROUSTABOUT CPT-92617 Venipuncture Draw Fee 11:34:27 CIRCUS ROUSTABOUT CPT-41262 Venipuncture Draw Fee 13:17:16 CIRCUS ROUSTABOUT CPT-64773 Venipuncture Draw Fee 12:05:39 CDT CPT-75758 Venipuncture Draw Fee 12:49:12 CDT CPT-44164 Venipuncture Draw Fee 12:37:18 CDT CPT-29374 Venipuncture Draw Fee 10:57:11 CDT CPT-26778 Venipuncture Draw Fee 13:47:40 CDT CPT-35179 Venipuncture Draw Fee 10:02:17 CDT CPT-91879 TB Tubersol 17:32:32 CDT CPT-OV Office Visit 16:21:53 CDT CPT-OV Office Visit 15:49:22 CDT CPT-OV Office Visit 17:16:31 CDT CPT-OV Office Visit 10:43:31 CDT
--- OUTSIDE RECORDS SUMMARY | 2019-02-09 11:40 | XMS REPORT | Clinical Summary ---
Author Author Renaldo, Florecita Munoz Organization [facility] [employer] Address Unknown Phone Unavailable Allergies, Adverse Reactions, [...] PhD Hyperpotassemia GERD 530.81 Resolved Kylie Yokum DIGITAL SOLUTION ARCHITECT Esophageal reflux Health maintenance exam V70.0 Resolved Adolfo Yates MD Routine general medical examination at a health care facility Anemia 285.9 Resolved Kylie Yanet DIGITAL SOLUTION ARCHITECT Anemia, unspecified Personal history of malignant neoplasm of large intestine V10.05 Active Adam Yates MD Personal history of malignant neoplasm of large intestine Hypomagnesemia 275.2 Resolved Kylie Yanet DIGITAL SOLUTION ARCHITECT Disorders of magnesium metabolism Weakness 780.79 Resolved [...] Sebaceous cyst, scalp 706.2 Resolved Kylie Yokum DIGITAL SOLUTION ARCHITECT Sebaceous cyst Cervical lymphadenopathy, anterior, left 785.6 Resolv ed Kylie Yokum DIGITAL SOLUTION ARCHITECT Enlargement of lymph nodes Need for prophylactic vaccination and inoculation against in fluenza V04.81 Resolved Adam Yates MD Need for prophylactic vaccination and inoculation against influenza Preventive health care V70.0 Resolved Kylie Lundu m DIGITAL SOLUTION ARCHITECT Routine general medical examination at a health care facility Thyroid nodule, left 241.0 Resolved Selena Yates MD Nontoxic uninodular goiter Screening mammogram V76.12 Resolved Kylie Yokum A PRN Other screening mammogram Mandy 706.2 Resolved Kylie Yokum DIGITAL SOLUTION ARCHITECT Sebaceous cyst Colon cancer, ascending 153.6 Resolved Kylie Yok um DIGITAL SOLUTION ARCHITECT Malignant neoplasm of ascending colon Foot pain, left 729.5 Resolved Kylie Yokum DIGITAL SOLUTION ARCHITECT Pain in limb Splinter 919.6 Resolved Kylie Yokum DIGITAL SOLUTION ARCHITECT Superficial foreign body (splinter) of other, multiple, and unspecified sites, without major open wound and without mention of infection Rash 782.1 Resolved Kylie Yokum DIGITAL SOLUTION ARCHITECT Rash and other nonspecific skin eruption Cyst 706.2 Resolved Kylie Yokum DIGITAL SOLUTION ARCHITECT Sebaceous cyst Body Mass Index 23.0-23.9 Adult Refinement 2017 Kylie Yokum DIGITAL SOLUTION ARCHITECT Body Mass Index between 19-24, adult BMI [...] RIGHT LOWER QUADRANT ICD-789.03 Inactive Kina Joshua DIGITAL SOLUTION ARCHITECT ADENOCARCINOMA, COLON, 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 Dick Yates MD ABDOMINAL PAIN, GENERALIZED ICD-789.07 Inactive Hope Benavidez MD PhD FEVER UNSPECIFIED ICD-780.60 Inactive Hope cohn MD PhD UNSPECIFIED VENOUS INSUFFICIENCY ICD-459.81 Elda ctive Adam Yates MD ADENOCARCINOMA, 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 Inac tive Hope Benavidez MD PhD Hyperkalemia ICD-276.7 Inactive Hope Benavidez MD PhD GERD ICD-530.81 Inactive Kylieshubham Holt DIGITAL SOLUTION ARCHITECT 2015 Health maintenance exam ICD-V70.0 Bam Yates MD Anemia ICD-285.9 Inactive Kylieshubham Holt DIGITAL SOLUTION ARCHITECT 07/24 Hypomagnesemia ICD-275.2 Inactive Kylie Holt DIGITAL SOLUTION ARCHITECT Weakness ICD-780.79 Inactive Hope Benavidez MD P [...] cyst, scalp ICD-706.2 Inactive Tracy hi Yokum DIGITAL SOLUTION ARCHITECT Cervical lymphadenopathy, anterior, left ICD-785.6 Inactive Kylie Yokum DIGITAL SOLUTION ARCHITECT Need for prophylactic vaccination and inoculation against in fluenza ICD-V04.81 Inactive Adam Yates MD Preventive health care ICD-V70.0 Inactive Ka thi Yokum DIGITAL SOLUTION ARCHITECT Thyroid nodule, left ICD-241.0 Inactive Selena Yates MD Screening mammogram ICD-V76.12 Inactive Kylie Yokum DIGITAL SOLUTION ARCHITECT Mandy ICD-706.2 Inactive Kylie Yokum DIGITAL SOLUTION ARCHITECT 07/20 Colon cancer, ascending ICD-153.6 Inactive K athi Yokum DIGITAL SOLUTION ARCHITECT Foot pain, left ICD-729.5 Inactive Kylie Yokum DIGITAL SOLUTION ARCHITECT Splinter ICD-919.6 Inactive Kylie Yokum DIGITAL SOLUTION ARCHITECT 2017 Rash ICD-782.1 Inactive Kylie Yokum DIGITAL SOLUTION ARCHITECT 07/25 Cyst ICD-706.2 Inactive Kylie Yokum DIGITAL SOLUTION ARCHITECT 08/11 Unspecified fall, initial encounter ICD-E888.9 Inactive Kylie Yokum DIGITAL SOLUTION ARCHITECT Eye pain, left ICD-379.91 Inactive Kylie Holt [...] other medications for hypothyroidism. LEVOTHYROX INE SODIUM 54934470188 Active Kylie Holt APRN Active VOLTAREN 1 % TRANSDERMAL GEL apply 2 grams q 6-8 hour to left arm as needed for pain DICLOFENAC SODIUM 54983432162 Active Kylie Holt APR N Active IMODIUM A-D 2 MG ORAL TABLET 1 tablet twice a day LOPERAMIDE HCL 52954760300 Active Kylie Holt APRN Active COQ10 100 MG ORAL CAPSULE 1 daily COENZYME Q10 821003 21163 Active LETY [place] Active VITAMIN D3 2000 UNIT ORAL CAPSULE Melaleuca-One daily CHOLECALCIFEROL 47585638520 Active Kylie Holt APRN Active PROBIOTIC DAILY ORAL CAPSULE Take one daily PROBIO TIC PRODUCT 55796075160 Active Kylie Holt APRN Active IRON 325 (65 Fe) MG ORAL TABLET 1 every other day FERROUS SULFATE 57681110716 No Longer Active Kylie Yokum DIGITAL SOLUTION ARCHITECT Active FLORANEX ORAL PACKET 1 pack three times daily, for bowel health LACTOBACILLUS 35501161181 No Longer Active Kylie Yokum DIGITAL SOLUTION ARCHITECT Active LOMOTIL 2.5-0.025 MG ORAL TABLET 1 tab by mouth prn 20 23/10/23 DIPHENOXYLATE-ATROPINE 38363637205 No Longer Active Kylie Yokum DIGITAL SOLUTION ARCHITECT Active MAGNESIUM GLUCONATE 250 MG ORAL TABLET 1 tab tid 23/10/23 MAGNESIUM GLUCONATE 37457220110 No Longer Active Kylie Yokum DIGITAL SOLUTION ARCHITECT Active CYANOCOBALAMIN 1000 MCG/ML INJECTION SOLUTION 1 injection ev ruben 2 weeks CYANOCOBALAMIN 06461532214 No Longer Active Kylie Yok um DIGITAL SOLUTION ARCHITECT Active ATENOLOL 25 MG ORAL TABLET 1/2 pill by mouth daily, fo r headaches, blood pressure ATENOLOL 77375009170 Active Kylie Yokum DIGITAL SOLUTION ARCHITECT Active PROPRANOLOL HCL 80 MG ORAL TABLET 1 tab tue. and thur. PROPRANOLOL HCL 44366927262 No Longer Active Hope Benavidez MD PhD A ctive VITAMIN D3 4000 IU 1 tab 3 times daily VITAMIN D3 4000 IU No Longer Active Hope Benavidez MD PhD Active BACTRIM DS 800-160 MG ORAL TABLET 1 pill by mouth twice claudio y, for UTI SULFAMETHOXAZOLE-TRIMETHOPRIM 48994179651 No Longer Active Hope Benavidez MD PhD Active PROLIA 60 MG/ML SUBCUTANEOUS SOLUTION 1 shot every 6 months for osteoprosis DENOSUMAB 36191565308 Active Hope Benavidez MD PhD Active CALCIUM + D + K 750-500-40 MG-UNT-MCG ORAL TABLET 1 tab by m outh twice daily CALCIUM-VITAMIN D-VITAMIN K 88590623959 Active Hope valdez MD PhD Active DAILY VALUE MULTIVITAMIN ORAL TABLET 1 tab by mouth twice daily 201 05/16/14 MULTIPLE VITAMIN 94773186484 Active Hope Benavidez MD PhD Acti ve FISH OIL 306 MG CAPS 1 tab by mouth three times daily OMEGA-3 FATTY ACIDS 99393117277 Active Hope Benavidez MD PhD Active LUTEIN 10 MG ORAL TABLET 1 tab daily LUTEIN 50626584 408 Active Hope Benavidez MD PhD Active TRIAMTERENE-HCTZ 37.5-25 MG ORAL TABLET 1 tab by mouth daily 10/22 TRIAMTERENE-HCTZ 45778884083 Active Kylie Holt DIGITAL SOLUTION ARCHITECT Active CYCLOBENZAPRINE HCL 10 MG ORAL TABLET 1 tablet by mout h three times daily as needed for headaches CYCLOBENZAPRINE HCL 87068434487 No Longer Active Adam Yates MD Active OMEPRAZOLE 20 MG ORAL CAPSULE DELAYED RELEASE 1 tablet by mo [facility] daily for GERD OMEPRAZOLE 11075862431 No Longer Active Adam Yates MD Active ZOFRAN 8 MG ORAL TABLET 1 tab by mouth every 12 hours prn 4 ONDANSETRON HCL 20158370285 No Longer Active Adam Yates MD Active PHENADOZ 25 MG RECTAL SUPPOSITORY 1 every 4 hrs. PRN 2 PROMETHAZINE HCL 96273949305 No Longer Active Adam Yates MD A ctive POTASSIUM CHLORIDE 20 MEQ ORAL PACKET by mouth twice a day prn 2 POTASSIUM CHLORIDE 54442348184 No Longer Active Adam Carpenter MD Active PROMETHAZINE HCL 25 MG ORAL TABLET 1 Q. 4 hr. PRN PROMETHAZINE HCL 51199744033 No Longer Active Adam Yates MD Active INNOPRAN XL 120 MG ORAL CAPSULE EXTENDED RELEASE 24 HO UR Take one by mouth daily PROPRANOLOL HCL SR BEADS 04197316658 No Longer Active Adam Yates MD Active FLAGYL 500 MG ORAL TABLET 1 pill by mouth three times daily, for diarrhea METRONIDAZOLE 57360255663 No Longer Active Hope landers MD PhD Active DYAZIDE 37.5-25 MG ORAL CAPSULE 1 qd TRIA MTERENE-HCTZ 02135720105 No Longer Active Hope Benavidez MD PhD Active PROZAC 20 MG ORAL CAPSULE 1 q d FLUOXETINE HCL 10157954878 No Longer Active Hope Benavidez MD PhD Active SIMVASTATIN 40 MG ORAL TABLET 1 qd SIMVAS TATIN 62414710167 No Longer Active Adam Yates MD Active MELOXICAM 15 MG ORAL TABLET 1 qd MELOXICAM 23410246482 No Longer Active Adam Yates MD Active EXCEDRIN EXTRA STRENGTH 250-250-65 MG ORAL TABLET 1-2 q6h ME N headache [id number] 07255777001 Active Hope Benavidez MD PhD Active FLAGYL 500 MG ORAL TABLET 1 qid METRONIDAZOL E 40383080712 No Longer Active Adam Yates MD Active LEVAQUIN 750 MG ORAL TABLET 1 qd LEVOFLOXAC IN 09548078400 No Longer Active Adam Yates MD Active ADULT ASPIRIN LOW STRENGTH 81 MG ORAL TABLET DISINTEGRATING 1 qd ASPIRIN 56658983472 Active Hope Benavidez MD PhD Active LEVAQUIN 750 MG ORAL TABLET 1 qd LEVAQUIN 750 MG ORAL TABLET 951882 LEVOFLOXACIN Inactive FLAGYL 500 MG ORAL TABLET 1 qid FLAGYL 500 MG ORAL TABLET 097643 METRONIDAZOLE Inactive MELOXICAM 15 MG ORAL TABLET 1 qd MELOXICAM 15 MG ORAL TABLET 074591 MELOXICAM Inactive SIMVASTATIN 40 MG ORAL TABLET 1 qd SIMVASTATIN 40 MG ORAL TABLET 513135 SIMVASTATIN Inactive PROZAC 20 MG ORAL CAPSULE 1 q d PROZAC 20 MG ORAL CAPSULE 036302 FLUOXETINE HCL Inactive DYAZIDE 37.5-25 MG ORAL CAPSULE 1 qd 5 DYAZIDE 37.5-25 MG ORAL CAPSULE 968128 TRIAMTERENE-HCTZ Inactive INNOPRAN XL 120 MG ORAL CAPSULE EXTENDED RELEASE 24 HO UR Take one by mouth daily INNOPRAN XL 120 MG ORAL CAPSULE EXTENDED RELEASE 24 HOUR PROPRANOLOL HCL SR BEADS Inactive PROMETHAZINE HCL 25 MG ORAL TABLET 1 Q. 4 hr. PRN 2013 PROMETHAZINE HCL 25 MG ORAL TABLET 147913 PROMETHAZINE HCL Inactive POTASSIUM CHLORIDE 20 MEQ ORAL PACKET by mouth twice a day prn 2 POTASSIUM CHLORIDE 20 MEQ ORAL PACKET 0243001 POTASSIUM CHLORIDE Inactive PHENADOZ 25 MG RECTAL SUPPOSITORY 1 every 4 hrs. PRN 2 PHENADOZ 25 MG RECTAL SUPPOSITORY 720565 PROMETHAZINE HCL Inactive ZOFRAN 8 MG ORAL TABLET 1 tab by mouth every 12 hours prn 4 ZOFRAN 8 MG ORAL TABLET 256323 ONDANSETRON HCL Inactive OMEPRAZOLE 20 MG ORAL CAPSULE DELAYED RELEASE 1 tablet by mo ut daily for GERD OMEPRAZOLE 20 MG ORAL CAPSULE DELAYED RELEASE 19 8051 OMEPRAZOLE Inactive CYCLOBENZAPRINE HCL 10 MG ORAL TABLET 1 tablet by mout h three times daily as needed for headaches CYCLOBENZAPRINE HCL 10 MG ORAL TABLET 202250 CYCLOBENZAPRINE HCL Inactive VITAMIN D3 4000 IU 1 tab 3 times daily VITAMIN D3 4000 IU Inactive PROPRANOLOL HCL 80 MG ORAL TABLET 1 tab tue. and thur. PROPRANOLOL HCL 80 MG ORAL TABLET 984317 PROPRANOLOL HCL Inacti ve CYANOCOBALAMIN 1000 MCG/ML INJECTION SOLUTION 1 injection ev ruben 2 weeks CYANOCOBALAMIN 1000 MCG/ML INJECTION SOLUTION 30 9594 CYANOCOBALAMIN Inactive MAGNESIUM GLUCONATE 250 MG ORAL TABLET 1 tab tid 23/10/23 MAGNESIUM GLUCONATE 250 MG ORAL TABLET 267203 MAGNESIUM GLUCONATE Inactive LOMOTIL 2.5-0.025 MG ORAL TABLET 1 tab by mouth prn 20 23/10/23 LOMOTIL 2.5-0.025 MG ORAL TABLET 5792502 DIPHENOXYLATE-ATROPINE Inac tive FLORANEX ORAL PACKET 1 pack three times daily, for bowel health FLORANEX ORAL PACKET 04178648495 LACTOBACILLUS Inactive IRON 325 (65 Fe) MG ORAL TABLET 1 every other day 2015 IRON 325 (65 Fe) MG ORAL TABLET 847501 FERROUS SULFATE Inactive FLAGYL 500 MG ORAL TABLET 1 pill by mouth three times daily, for diarrhea FLAGYL 500 MG ORAL TABLET 788175 METRONIDAZOLE I nactive BACTRIM DS 800-160 MG ORAL TABLET 1 pill by mouth twice claudio y, for UTI BACTRIM DS 800-160 MG ORAL TABLET 530617 SULFAMETHOXAZOLE-TRIMETHOPRIM Inactive Advance Directives Directive Description Start [...] count 181 10^3/MM^3 10*3/mm3 142-424 Lab Report: CBC, Basic Metabolic Panel, MICROALB/CREAT W/RATIO, Lipid Pa ... - Chemistry sodium, serum 141 mmol/L 250-904 4427/01/10 potassium, serum 3.7 mmol/L 3.5-5.2 chloride, serum 101 mmol/L 98-107 carbon dioxide, venous blood 31.0 mmol/L 21.0-32 .0 blood glucose 96 mg/dL 65-95 calcium, serum 9.5 mg/dL 8.5-10.1 urea nitrogen, blood 21 mg/dL 7-18 creatinine, serum 1.40 mg/dL 0.60-1.30 Estimated Glomerular Filtration Rate (calc) 39 (?) mL/min/1.73m2 = OR > 60 mL/min cholesterol, serum 211 mg/dL 375-872 7972/01/10 triglyceride, serum, fasting 77 mg/dL 30-200 HDL [...] 0.82 ng/dL 0.59-1.17 sodium, serum 142 mmol/L 440-278 6877/04/16 carbon dioxide, venous blood 30.0 mmol/L 21.0-32 [...] Lab Alkaline phosphatase 48 50-136 Lab Report: Renal Panel, Magnesium - Chelle radha sodium, serum 142 mmol/L 182-526 8608/11/02 potassium, serum 3.4 mmol/L 3.5-5.2 chloride, serum [...] (L), Free Thyroxine (L) - Chemistry TSH 13.59 m[iU]/mL 0.36-3.74 thyroxine, serum, free 0.47 ng/dL 0.59-1.17 TSH 13.85 m[iU]/mL 0.36-3.74 thyroxine, serum, free 0.65 ng/dL 0.59-1.17 Encounters Code Encounter Date Provider Facility CPT-25008 [id number] Vst-Est Level III 09:15:19 [facility] [place] [facility] CPT-80365 Level 4 Est. Patient 15:35:24 SOCIAL MEDIA EXECUTIVE Adam Yates MD [facility] CPT-11550 Level 3 New Patient 12:08:54 SOCIAL MEDIA EXECUTIVE Adam Yates MD [facility] CPT-25055 [id number] Vst-Est Level IV 19:48:30 SOCIAL MEDIA EXECUTIVE Tracy Holt [facility] [place] CPT-24862 [id number] Vst-Est Level III 14:29:19 CDT Fiorella Holt [facility] [place] CPT-58177 Level 2 Est. Patient 14:58:26 CDT Kylie boyd [facility] [place] CPT-57839 Level 3 Est. Patient 08:15:24 SOCIAL MEDIA EXECUTIVE Kylie boyd [facility] [place] CPT-80658 Level 2 Est. Patient 14:27:16 SOCIAL MEDIA EXECUTIVE Kylie boyd [facility] [place] CPT-44942 Level 3 Est. Patient 17:54:48 CDT Kylie boyd [facility] [place] CPT-36754 Level 3 Est. Patient 16:26:30 CDT Kina blackmon [facility] CPT-92286 Level 3 New Patient 16:22:01 SOCIAL MEDIA EXECUTIVE Adam Yates MD [facility] CPT-79283 Level 4 Est. Patient 17:00:48 CDT Kylie Lund [facility] [place] CPT-27580 Level 3 Est. Patient 13:15:54 CDT Kylie boyd [facility] CPT-07890 Level 3 Est. Patient 09:10:11 CDT Kylie Lund [facility] [place] CPT-19708 Level 4 Est. Patient 12:08:30 SOCIAL MEDIA EXECUTIVE Hope cohn MD PhD [facility] CPT-47321 Level 4 Est. Patient 19:08:42 SOCIAL MEDIA EXECUTIVE Hope cohn MD [facility] CPT-19761 Level 4 Est. Patient 20:04:51 CDT Hope cohn MD PhD [facility] CPT-69884 Level 3 New Patient 01:46:11 SOCIAL MEDIA EXECUTIVE Hope landers MD PhD [facility] Procedures Code Procedure Name Date Entry Date Standard Desc ription CPT-18595 Bone Density - XRAY USE ONLY 11:51:35 CDT 2 CPT-77019 Free T4 - LAB USE ONLY 11:44:37 CDT CPT-42866 TSH - LAB USE ONLY 11:44:37 CDT CPT-07936 Venipuncture Draw Fee 11:44:37 CDT CPT-J0897 Prolia 60 mg 10:36:55 CDT CPT-49304 Abx/Therapy Injection 10:36:55 CDT CPT-49518 Venipuncture Draw Fee 13:34:11 CDT CPT-G0439 [facility] Annual Wellness Exam 09:15:19 CDT CPT-48786 Postop F/U Visit 15:45:41 CDT CPT-82684 Sono Soft Tissue Head and Neck - XRAY US E ONLY 11:56:06 SOCIAL MEDIA EXECUTIVE CPT-64574 Abx/Therapy Injection 09:40:08 SOCIAL MEDIA EXECUTIVE CPT-J0897 Prolia 60 mg 09:40:08 SOCIAL MEDIA EXECUTIVE CPT-15239 First Vx - Ix admin for Medicare patients 02/08 10:02:45 CDT CPT-76286 Fluzone Quadrivalent Intramuscular Suspe nsion 0.5 ML 10:02:45 CDT CPT-66283 Magnesium - LAB USE ONLY 09:41:00 CDT 12/09 CPT-47175 Renal Panel - LAB USE ONLY 09:41:00 CDT 201 09/17/01 CPT-24141 Venipuncture Draw Fee 09:41:00 CDT CPT-77959 Calcium - LAB USE ONLY 17:25:11 CDT CPT-J0897 Prolia 60 mg 15:10:59 CDT CPT-78338 Abx/Therapy Injection 15:10:59 CDT CPT-G0439 Subsequent Annual Wellness Exam 14:29:19 CDT CPT-71274 Venipuncture Draw Fee 10:59:04 CDT CPT-64721 CMP - LAB USE ONLY 10:59:04 CDT CPT-85630 CBC with Diff - LAB USE ONLY 10:59:03 CDT 2 CPT-J0897 Prolia 60 mg 15:46:54 SOCIAL MEDIA EXECUTIVE CPT-25582 Abx/Therapy Injection 15:46:54 SOCIAL MEDIA EXECUTIVE CPT-49948 Microalbumin - LAB USE ONLY 09:41:32 SOCIAL MEDIA EXECUTIVE 20 23/01/15 CPT-03141 Free T4 - LAB USE ONLY 09:41:32 SOCIAL MEDIA EXECUTIVE CPT-49275 TSH - LAB USE ONLY 09:41:32 SOCIAL MEDIA EXECUTIVE CPT-17982 BMP - LAB USE ONLY 09:41:32 SOCIAL MEDIA EXECUTIVE CPT-84811 Venipuncture Draw Fee 09:41:32 SOCIAL MEDIA EXECUTIVE CPT-58603 First Vx - Ix admin for Medicare patients 11:19:30 CDT CPT-35255 Fluzone High-Dose Intramuscular Suspension 12/07 11:19:30 CDT CPT-J0897 Prolia 60 mg 14:55:42 CDT CPT-27853 Abx/Therapy Injection 14:55:42 CDT CPT-81151 Bone Density - XRAY USE ONLY 10:27:12 CDT 2 CPT-G0439 Subsequent Annual Wellness Exam 17:54:53 CDT CPT-18860 Foot, left, comp min 3V - XRAY USE ONLY 12:22:49 CDT CPT-G0009 Administration of Pneumococcal Vaccine 3 12:18:00 CDT CPT-16844 Pneumovax 23 Injection Injectable 25 MCG /0.5ML 12:18:00 CDT CPT-J0897 Prolia 60 mg 14:14:16 SOCIAL MEDIA EXECUTIVE CPT-49748 Abx/Therapy Injection 14:14:15 SOCIAL MEDIA EXECUTIVE CPT-23434 Lipid - LAB USE ONLY 10:01:52 SOCIAL MEDIA EXECUTIVE 2 CPT-27612 Calcium - LAB USE ONLY 10:01:51 SOCIAL MEDIA EXECUTIVE CPT-41356 Venipuncture Draw Fee 10:01:51 SOCIAL MEDIA EXECUTIVE CPT-LR Lesion Removal 16:22:01 SOCIAL MEDIA EXECUTIVE CPT-46315 TSH - LAB USE ONLY 14:26:02 CDT CPT-38246 CMP - LAB USE ONLY 14:26:01 CDT CPT-60719 CBC with Diff - LAB USE ONLY 14:26:01 CDT 2 CPT-73727 Venipuncture Draw Fee 14:26:01 CDT CPT-18704 First Vx - Ix admin for Medicare patients 13:27:08 CDT CPT-66816 Fluzone High-Dose Intramuscular Suspension 11/26 13:27:08 CDT CPT-G0438 Initial Annual Wellness Exam 14:19:57 CD T CPT-G0009 Administration of Pneumococcal Vaccine 9 11:36:25 CDT CPT-35038 Prevnar 13 Intramuscular Suspension 1 1:36:25 CDT CPT-61506 Prevnar 13 Intramuscular Suspension 1 0:40:58 CDT CPT-J0897 Prolia 60 mg 10:37:16 CDT CPT-53159 Abx/Therapy Injection 10:37:16 CDT CPT-J0897 Prolia 60 mg 16:09:34 SOCIAL MEDIA EXECUTIVE CPT-J0897 Prolia 60 mg 11:10:35 SOCIAL MEDIA EXECUTIVE CPT-38324 Abx/Therapy Injection 11:10:35 SOCIAL MEDIA EXECUTIVE CPT-000 Give Appropriate Flu Vaccine 17:01:15 SOCIAL MEDIA EXECUTIVE 2 CPT-97860 Fluzone High Dose (65+) 15:03:08 SOCIAL MEDIA EXECUTIVE 02/15 CPT-78928 Immunization Single Admin 15:03:08 SOCIAL MEDIA EXECUTIVE 2014 CPT-OV Office Visit 15:58:06 CDT CPT-J0897 Prolia 60 mg 08:45:38 CDT CPT-26439 Abx/Therapy Injection 08:45:38 CDT CPT-J3420 Vitamin B12 1000mcg (Cyanocobalamin) 09:26:20 SOCIAL MEDIA EXECUTIVE CPT-23876 Abx/Therapy Injection 09:26:20 SOCIAL MEDIA EXECUTIVE CPT-J3420 Vitamin B12 1000mcg (Cyanocobalamin) 09:44:40 SOCIAL MEDIA EXECUTIVE CPT-98898 Abx/Therapy Injection 09:44:40 SOCIAL MEDIA EXECUTIVE CPT-J3420 Vitamin B12 1000mcg (Cyanocobalamin) 09:15:54 SOCIAL MEDIA EXECUTIVE CPT-59909 Abx/Therapy Injection 09:15:54 SOCIAL MEDIA EXECUTIVE CPT-J3420 Vitamin B12 1000mcg (Cyanocobalamin) 09:46:44 SOCIAL MEDIA EXECUTIVE CPT-82947 Abx/Therapy Injection 09:46:44 SOCIAL MEDIA EXECUTIVE CPT-J3420 Vitamin B12 1000mcg (Cyanocobalamin) 09:47:34 SOCIAL MEDIA EXECUTIVE CPT-68695 Abx/Therapy Injection 09:47:34 SOCIAL MEDIA EXECUTIVE CPT-J3420 Vitamin B12 1000mcg (Cyanocobalamin) 14:35:50 SOCIAL MEDIA EXECUTIVE CPT-J3420 Vitamin B12 1000mcg (Cyanocobalamin) 09:25:05 SOCIAL MEDIA EXECUTIVE CPT-66177 Abx/Therapy Injection 09:25:05 SOCIAL MEDIA EXECUTIVE CPT-G0008 Administration of Influenza Virus Vaccine 13:36:47 CDT CPT-77948 Fluzone High-Dose Intramuscular Suspension 11/15 13:36:47 CDT CPT-J0897 Prolia 60 mg 08:50:41 CDT CPT-77187 Abx/Therapy Injection 08:50:41 CDT CPT-15964 Bone Density 12:06:12 CDT CPT-19139 Bone Density 08:54:40 CDT CPT-OV Office Visit 15:37:02 CDT CPT-24368 Postop F/U Visit 15:47:49 CDT CPT-66005 Postop F/U Visit 15:21:02 CDT CPT-[facility] Trans[facility] Mgmt-High 07:52:27 CDT 20 20/06/01 CPT-10552 Venipuncture Draw Fee 13:51:18 CDT CPT-05919 Venipuncture Draw Fee 10:14:55 SOCIAL MEDIA EXECUTIVE CPT-17045 Venipuncture Draw Fee 13:39:45 SOCIAL MEDIA EXECUTIVE CPT-OV Office Visit 15:11:22 SOCIAL MEDIA EXECUTIVE CPT-36184 Venipuncture Draw Fee 09:20:49 SOCIAL MEDIA EXECUTIVE CPT-05345 Venipuncture Draw Fee 16:52:15 SOCIAL MEDIA EXECUTIVE CPT-26424 Venipuncture Draw Fee 10:37:24 SOCIAL MEDIA EXECUTIVE CPT-19244 Venipuncture Draw Fee 08:21:21 SOCIAL MEDIA EXECUTIVE CPT-32528 Venipuncture Draw Fee 08:30:20 SOCIAL MEDIA EXECUTIVE CPT-41559 Venipuncture Draw Fee 14:53:21 SOCIAL MEDIA EXECUTIVE CPT-22173 Venipuncture Draw Fee 09:40:56 SOCIAL MEDIA EXECUTIVE CPT-16516 Venipuncture Draw Fee 10:30:47 SOCIAL MEDIA EXECUTIVE CPT-96447 Venipuncture Draw Fee 10:46:17 SOCIAL MEDIA EXECUTIVE CPT-85064 Venipuncture Draw Fee 11:12:45 SOCIAL MEDIA EXECUTIVE CPT-86658 Venipuncture Draw Fee 09:53:33 SOCIAL MEDIA EXECUTIVE CPT-50822 Venipuncture Draw Fee 11:53:51 SOCIAL MEDIA EXECUTIVE CPT-94022 Venipuncture Draw Fee 10:33:50 SOCIAL MEDIA EXECUTIVE CPT-29785 Venipuncture Draw Fee 10:05:01 SOCIAL MEDIA EXECUTIVE CPT-52078 Venipuncture Draw Fee 14:32:52 SOCIAL MEDIA EXECUTIVE CPT-64405 Venipuncture Draw Fee 09:46:13 SOCIAL MEDIA EXECUTIVE CPT-20292 Venipuncture Draw Fee 11:34:27 SOCIAL MEDIA EXECUTIVE CPT-85699 Venipuncture Draw Fee 13:17:16 SOCIAL MEDIA EXECUTIVE CPT-22904 Venipuncture Draw Fee 12:05:39 CDT CPT-06266 Venipuncture Draw Fee 12:49:12 CDT CPT-03274 Venipuncture Draw Fee 12:37:18 CDT CPT-16330 Venipuncture Draw Fee 10:57:11 CDT CPT-83975 Venipuncture Draw Fee 13:47:40 CDT CPT-63863 Venipuncture Draw Fee 10:02:17 CDT CPT-70965 TB Tubersol 17:32:32 CDT CPT-OV Office Visit 16:21:53 CDT CPT-OV Office Visit 15:49:22 CDT CPT-OV Office Visit 17:16:31 CDT CPT-OV Office Visit 10:43:31 CDT
--- OUTSIDE RECORDS SUMMARY | 2019-02-09 11:40 | XMS REPORT | Clinical Summary ---
Author Author Renaldo, Florecita Munoz Organization [facility] [employer] Address Unknown Phone Unavailable Allergies, Adverse Reactions, [...] PhD Hyperpotassemia GERD 530.81 Resolved Kylie Yokum MASTER FIRE CONTROL TECHNICIAN Esophageal reflux Health maintenance exam V70.0 Resolved Adolfo Yates MD Routine general medical examination at a health care facility Anemia 285.9 Resolved Kylie Yanet MASTER FIRE CONTROL TECHNICIAN Anemia, unspecified Personal history of malignant neoplasm of large intestine V10.05 Active Adam Yates MD Personal history of malignant neoplasm of large intestine Hypomagnesemia 275.2 Resolved Kylie Yanet MASTER FIRE CONTROL TECHNICIAN Disorders of magnesium metabolism Weakness 780.79 Resolved [...] Sebaceous cyst, scalp 706.2 Resolved Kylie Yokum MASTER FIRE CONTROL TECHNICIAN Sebaceous cyst Cervical lymphadenopathy, anterior, left 785.6 Resolv ed Kylei Yokum MASTER FIRE CONTROL TECHNICIAN Enlargement of lymph nodes Need for prophylactic vaccination and inoculation against in fluenza V04.81 Resolved Adam Yates MD Need for prophylactic vaccination and inoculation against influenza Preventive health care V70.0 Resolved Kylie Lundu m MASTER FIRE CONTROL TECHNICIAN Routine general medical examination at a health care facility Thyroid nodule, left 241.0 Resolved Selena Yates MD Nontoxic uninodular goiter Screening mammogram V76.12 Resolved Kylie Yokum A PRN Other screening mammogram Mandy 706.2 Resolved Kylie Yokum MASTER FIRE CONTROL TECHNICIAN Sebaceous cyst Colon cancer, ascending 153.6 Resolved Kylie Yok um MASTER FIRE CONTROL TECHNICIAN Malignant neoplasm of ascending colon Foot pain, left 729.5 Resolved Klyie Yokum MASTER FIRE CONTROL TECHNICIAN Pain in limb Splinter 919.6 Resolved Kylie Yokum MASTER FIRE CONTROL TECHNICIAN Superficial foreign body (splinter) of other, multiple, and unspecified sites, without major open wound and without mention of infection Rash 782.1 Resolved Kylie Yokum MASTER FIRE CONTROL TECHNICIAN Rash and other nonspecific skin eruption Cyst 706.2 Resolved Kylie Yokum MASTER FIRE CONTROL TECHNICIAN Sebaceous cyst Body Mass Index 23.0-23.9 Adult Refinement 2017 Kylie Yokum MASTER FIRE CONTROL TECHNICIAN Body Mass Index between 19-24, adult [...] medical examination at a health care facility ADENOCARCINOMA, COLON, 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 Dick Yates MD ABDOMINAL PAIN, GENERALIZED ICD-789.07 Inactive Hope Benavidez MD PhD FEVER UNSPECIFIED ICD-780.60 Inactive Hope cohn MD PhD UNSPECIFIED VENOUS INSUFFICIENCY ICD-459.81 [place] ctive Adam Yates MD ADENOCARCINOMA, 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 Inac tive Hope Benavidez MD PhD Hyperkalemia ICD-276.7 Inactive Hope Benavidez MD PhD ABDOMINAL PAIN, RIGHT LOWER QUADRANT ICD-789.03 Inactive Kina Tres MASTER FIRE CONTROL TECHNICIAN Health maintenance exam ICD-V70.0 Inactive Adolfo Yates MD Anemia ICD-285.9 Inactive Kylie Holt MASTER FIRE CONTROL TECHNICIAN 07/24 GERD ICD-530.81 Inactive Kylie Holt MASTER FIRE CONTROL TECHNICIAN 2015 Aftercare following surgery of the teeth,oral cavity a nd digestive system, NEC ICD-V58.75 Inactive Adam Yates MD Hypomagnesemia ICD-275.2 Inactive Kylie Holt MASTER FIRE CONTROL TECHNICIAN Asymptomatic postmenopausal status (age-related) (natural) I CD-V49.81 Inactive Hope Benavidez MD PhD Weakness ICD-780.79 Inactive Hope Benavidez MD P hD Colon cancer ICD-153.9 Inactive Adam luna MD Dysuria ICD-788.1 Inactive Hope Benavidez MD PhD 201 05/19/01 Diarrhea, functional ICD-564.5 Inactive Selena Yates MD Adenocarcinoma, ascending colon ICD-153.6 Inac tive Adam Yates MD Sebaceous cyst, scalp ICD-706.2 Inactive Tracy hi Yokum MASTER FIRE CONTROL TECHNICIAN Cervical lymphadenopathy, anterior, left ICD-785.6 Inactive Kylie Yokum MASTER FIRE CONTROL TECHNICIAN Need for prophylactic vaccination and inoculation against in fluenza ICD-V04.81 Inactive Adam Yates MD Screening mammogram ICD-V76.12 Inactive Kylie Yokum MASTER FIRE CONTROL TECHNICIAN Mandy ICD-706.2 Inactive Kylie Yokum MASTER FIRE CONTROL TECHNICIAN 07/20 Colon cancer, ascending ICD-153.6 Inactive K athi Yokum MASTER FIRE CONTROL TECHNICIAN Foot pain, left ICD-729.5 Inactive Kylie Yokum MASTER FIRE CONTROL TECHNICIAN Splinter ICD-919.6 Inactive Kylie Yokum MASTER FIRE CONTROL TECHNICIAN 2017 Rash ICD-782.1 Inactive Kylie Yokum MASTER FIRE CONTROL TECHNICIAN 07/25 Cyst ICD-706.2 Inactive Kylie Yokum MASTER FIRE CONTROL TECHNICIAN 08/11 Unspecified fall, initial encounter ICD-E888.9 Inactive Kylie Yokum MASTER FIRE CONTROL TECHNICIAN Eye pain, left ICD-379.91 Inactive Kylie Yokum MASTER FIRE CONTROL TECHNICIAN Pharyngitis, acute ICD-074.0 Inactive Kavin Yates MD Hypomagnesemia ICD-275.2 Inactive Adam Franklin MD Hypokalemia ICD-276.8 Inactive Adam enamorado MD Enlarged thyroid ICD-240.9 Inactive Adam Yates MD Underweight Inactive LETY Nation 05/17 Follicular adenoma, thyroid ICD-226 Inactive Adam Yates MD Preventive health care ICD-V70.0 Inactive Fiorella enrico Holt APRN Thyroid nodule, left ICD-241.0 Inactive Selena Yates MD Preventive health care, adult ICD-V70.0 Inacti ve Kylie Holt APRN Medication List Medication Instructions Start Date Stop Date Generic Name NDC Status Provider Patient Instruction SYNTHROID 75 MCG ORAL TABLET Take one tablet 30 minute s before breakfast or other medications for hypothyroidism. LEVOTHYROX INE SODIUM 54523365873 Active Kylie Holt APRN Active VOLTAREN 1 % TRANSDERMAL GEL apply 2 grams q 6-8 hour to left arm as needed for pain DICLOFENAC SODIUM 84016906028 Active Kylie Holt APR N Active IMODIUM A-D 2 MG ORAL TABLET 1 tablet twice a day LOPERAMIDE HCL 32582207574 Active Kylie Holt APRN Active COQ10 100 MG ORAL CAPSULE 1 daily COENZYME Q10 488259 42206 Active LETY [place] Active VITAMIN D3 2000 UNIT ORAL CAPSULE Melaleuca-One daily CHOLECALCIFEROL 33337645131 Active Kylie Holt APRN Active PROBIOTIC DAILY ORAL CAPSULE Take one daily PROBIO TIC PRODUCT 66691328089 Active Kylie Holt APRN Active IRON 325 (65 Fe) MG ORAL TABLET 1 every other day FERROUS SULFATE 50691672082 No Longer Active Kylie Yokum MASTER FIRE CONTROL TECHNICIAN Active FLORANEX ORAL PACKET 1 pack three times daily, for bowel health LACTOBACILLUS 75860536820 No Longer Active Kylie Yokum MASTER FIRE CONTROL TECHNICIAN Active LOMOTIL 2.5-0.025 MG ORAL TABLET 1 tab by mouth prn 20 23/10/23 DIPHENOXYLATE-ATROPINE 03415325890 No Longer Active Kylie Yokum MASTER FIRE CONTROL TECHNICIAN Active MAGNESIUM GLUCONATE 250 MG ORAL TABLET 1 tab tid 23/10/23 MAGNESIUM GLUCONATE 87810352893 No Longer Active Kylie Yokum MASTER FIRE CONTROL TECHNICIAN Active CYANOCOBALAMIN 1000 MCG/ML INJECTION SOLUTION 1 injection ev ruben 2 weeks CYANOCOBALAMIN 45095341487 No Longer Active Kylie Yok um MASTER FIRE CONTROL TECHNICIAN Active ATENOLOL 25 MG ORAL TABLET 1/2 pill by mouth daily, fo r headaches, blood pressure ATENOLOL 98393704970 Active Kylie Yokum MASTER FIRE CONTROL TECHNICIAN Active PROPRANOLOL HCL 80 MG ORAL TABLET 1 tab tue. and thur. PROPRANOLOL HCL 96224578249 No Longer Active Hope Benavidez MD PhD A ctive VITAMIN D3 4000 IU 1 tab 3 times daily VITAMIN D3 4000 IU No Longer Active Hope Benavidez MD PhD Active BACTRIM DS 800-160 MG ORAL TABLET 1 pill by mouth twice claudio y, for UTI SULFAMETHOXAZOLE-TRIMETHOPRIM 32981620930 No Longer Active Hope Benavidez MD PhD Active PROLIA 60 MG/ML SUBCUTANEOUS SOLUTION 1 shot every 6 months for osteoprosis DENOSUMAB 81863214221 Active Hope Benavidez MD PhD Active CALCIUM + D + K 750-500-40 MG-UNT-MCG ORAL TABLET 1 tab by m outh twice daily CALCIUM-VITAMIN D-VITAMIN K 13901268303 Active Hope valdez MD PhD Active DAILY VALUE MULTIVITAMIN ORAL TABLET 1 tab by mouth twice daily 201 05/16/14 MULTIPLE VITAMIN 73296427418 Active Hope Benavidez MD PhD Acti ve FISH OIL 306 MG CAPS 1 tab by mouth three times daily OMEGA-3 FATTY ACIDS 66587110469 Active Hope Benavidez MD PhD Active LUTEIN 10 MG ORAL TABLET 1 tab daily LUTEIN 16965688 408 Active Hope Benavidez MD PhD Active TRIAMTERENE-HCTZ 37.5-25 MG ORAL TABLET 1 tab by mouth daily 10/22 TRIAMTERENE-HCTZ 12595474908 Active Kylie Holt MASTER FIRE CONTROL TECHNICIAN Active CYCLOBENZAPRINE HCL 10 MG ORAL TABLET 1 tablet by mout h three times daily as needed for headaches CYCLOBENZAPRINE HCL 24801597638 No Longer Active Adam Yates MD Active OMEPRAZOLE 20 MG ORAL CAPSULE DELAYED RELEASE 1 tablet by mo [facility] daily for GERD OMEPRAZOLE 71358773266 No Longer Active Adam Yates MD Active ZOFRAN 8 MG ORAL TABLET 1 tab by mouth every 12 hours prn 4 ONDANSETRON HCL 32937338110 No Longer Active Adam Yates MD Active PHENADOZ 25 MG RECTAL SUPPOSITORY 1 every 4 hrs. PRN 2 PROMETHAZINE HCL 61071632697 No Longer Active Adam Yates MD A ctive POTASSIUM CHLORIDE 20 MEQ ORAL PACKET by mouth twice a day prn 2 POTASSIUM CHLORIDE 51396754133 No Longer Active Adam Carpenter MD Active PROMETHAZINE HCL 25 MG ORAL TABLET 1 Q. 4 hr. PRN PROMETHAZINE HCL 60003386995 No Longer Active Adam Yates MD Active INNOPRAN XL 120 MG ORAL CAPSULE EXTENDED RELEASE 24 HO UR Take one by mouth daily PROPRANOLOL HCL SR BEADS 90632647030 No Longer Active Adam Yates MD Active FLAGYL 500 MG ORAL TABLET 1 pill by mouth three times daily, for diarrhea METRONIDAZOLE 75980193574 No Longer Active Hope landers MD PhD Active DYAZIDE 37.5-25 MG ORAL CAPSULE 1 qd TRIA MTERENE-HCTZ 68244677791 No Longer Active Hope Benavidez MD PhD Active PROZAC 20 MG ORAL CAPSULE 1 q d FLUOXETINE HCL 83373646333 No Longer Active Hope Benavidez MD PhD Active SIMVASTATIN 40 MG ORAL TABLET 1 qd SIMVAS TATIN 50586097496 No Longer Active Adam Yates MD Active MELOXICAM 15 MG ORAL TABLET 1 qd MELOXICAM 96844632877 No Longer Active Adam Yates MD Active EXCEDRIN EXTRA STRENGTH 250-250-65 MG ORAL TABLET 1-2 q6h UT N headache [id number] 86125667521 Active Hope Benavidez MD PhD Active FLAGYL 500 MG ORAL TABLET 1 qid METRONIDAZOL E 83676245109 No Longer Active Adam Yates MD Active LEVAQUIN 750 MG ORAL TABLET 1 qd LEVOFLOXAC IN 34118784002 No Longer Active Adam Yates MD Active ADULT ASPIRIN LOW STRENGTH 81 MG ORAL TABLET DISINTEGRATING 1 qd ASPIRIN 73296682058 Active Hope Benavidez MD PhD Active LEVAQUIN 750 MG ORAL TABLET 1 qd LEVAQUIN 750 MG ORAL TABLET 235421 LEVOFLOXACIN Inactive FLAGYL 500 MG ORAL TABLET 1 qid FLAGYL 500 MG ORAL TABLET 613927 METRONIDAZOLE Inactive MELOXICAM 15 MG ORAL TABLET 1 qd MELOXICAM 15 MG ORAL TABLET 546582 MELOXICAM Inactive SIMVASTATIN 40 MG ORAL TABLET 1 qd SIMVASTATIN 40 MG ORAL TABLET 500367 SIMVASTATIN Inactive PROZAC 20 MG ORAL CAPSULE 1 q d PROZAC 20 MG ORAL CAPSULE 945569 FLUOXETINE HCL Inactive DYAZIDE 37.5-25 MG ORAL CAPSULE 1 qd 5 DYAZIDE 37.5-25 MG ORAL CAPSULE 532854 TRIAMTERENE-HCTZ Inactive INNOPRAN XL 120 MG ORAL CAPSULE EXTENDED RELEASE 24 HO UR Take one by mouth daily INNOPRAN XL 120 MG ORAL CAPSULE EXTENDED RELEASE 24 HOUR PROPRANOLOL HCL SR BEADS Inactive PROMETHAZINE HCL 25 MG ORAL TABLET 1 Q. 4 hr. PRN 2013 PROMETHAZINE HCL 25 MG ORAL TABLET 025079 PROMETHAZINE HCL Inactive POTASSIUM CHLORIDE 20 MEQ ORAL PACKET by mouth twice a day prn 2 POTASSIUM CHLORIDE 20 MEQ ORAL PACKET 7337408 POTASSIUM CHLORIDE Inactive PHENADOZ 25 MG RECTAL SUPPOSITORY 1 every 4 hrs. PRN 2 PHENADOZ 25 MG RECTAL SUPPOSITORY 687329 PROMETHAZINE HCL Inactive ZOFRAN 8 MG ORAL TABLET 1 tab by mouth every 12 hours prn 4 ZOFRAN 8 MG ORAL TABLET 655600 ONDANSETRON HCL Inactive OMEPRAZOLE 20 MG ORAL CAPSULE DELAYED RELEASE 1 tablet by mo ut daily for GERD OMEPRAZOLE 20 MG ORAL CAPSULE DELAYED RELEASE 19 8051 OMEPRAZOLE Inactive CYCLOBENZAPRINE HCL 10 MG ORAL TABLET 1 tablet by mout h three times daily as needed for headaches CYCLOBENZAPRINE HCL 10 MG ORAL TABLET 268370 CYCLOBENZAPRINE HCL Inactive VITAMIN D3 4000 IU 1 tab 3 times daily VITAMIN D3 4000 IU Inactive PROPRANOLOL HCL 80 MG ORAL TABLET 1 tab tue. and thur. PROPRANOLOL HCL 80 MG ORAL TABLET 543035 PROPRANOLOL HCL Inacti ve CYANOCOBALAMIN 1000 MCG/ML INJECTION SOLUTION 1 injection ev ruben 2 weeks CYANOCOBALAMIN 1000 MCG/ML INJECTION SOLUTION 30 9594 CYANOCOBALAMIN Inactive MAGNESIUM GLUCONATE 250 MG ORAL TABLET 1 tab tid 23/10/23 MAGNESIUM GLUCONATE 250 MG ORAL TABLET 843114 MAGNESIUM GLUCONATE Inactive LOMOTIL 2.5-0.025 MG ORAL TABLET 1 tab by mouth prn 20 23/10/23 LOMOTIL 2.5-0.025 MG ORAL TABLET 4677691 DIPHENOXYLATE-ATROPINE Inac tive FLORANEX ORAL PACKET 1 pack three times daily, for bowel health FLORANEX ORAL PACKET 66235546659 LACTOBACILLUS Inactive IRON 325 (65 Fe) MG ORAL TABLET 1 every other day 2015 IRON 325 (65 Fe) MG ORAL TABLET 941049 FERROUS SULFATE Inactive FLAGYL 500 MG ORAL TABLET 1 pill by mouth three times daily, for diarrhea FLAGYL 500 MG ORAL TABLET 403328 METRONIDAZOLE I nactive BACTRIM DS 800-160 MG ORAL TABLET 1 pill by mouth twice claudio y, for UTI BACTRIM DS 800-160 MG ORAL TABLET 891770 SULFAMETHOXAZOLE-TRIMETHOPRIM Inactive [employer] Directive Description Start [...] ... - Chemistry cholesterol, serum 211 mg/dL 987-813 2097/01/10 triglyceride, serum, fasting 77 mg/dL 30-200 HDL cholesterol, serum 70 mg/dL 32-60 LDL cholesterol, serum 126 mg/dL 0-130 TSH 1.19 m[iU]/mL 0.36-3.74 sodium, serum 141 mmol/L 659-293 8386/01/10 potassium, serum 3.7 mmol/L 3.5-5.2 chloride, serum [...] 0.82 ng/dL 0.59-1.17 sodium, serum 142 mmol/L 711-283 8394/04/16 carbon dioxide, venous blood 30.0 mmol/L 21.0-32 [...] - Chelle radha sodium, serum 142 mmol/L 147-540 7189/11/02 potassium, serum 3.4 mmol/L 3.5-5.2 chloride, serum [...] 0.59-1.17 Encounters Code Encounter Date Provider Facility CPT-13416 [id number] Vst-Est Level III 09:15:19 [facility] 4 Est[facility] Patient 15:35:24 INSTRUMENTATION CONTROLS ENGINEER Adam Yates MD [facility] CPT-77376 Level 3 New Patient 12:08:54 INSTRUMENTATION CONTROLS ENGINEER Adam Yates MD [facility] CPT-82334 [id number] Vst-Est Level IV 19:48:30 INSTRUMENTATION CONTROLS ENGINEER Tracy Holt [facility] CPT-93331 [id number] Vst-Est Level III 14:29:19 CDT Fiorella Holt [facility] CPT-75613 Level 2 Est. Patient 14:58:26 CDT Kylie boyd [facility] CPT-51454 Level 3 Est. Patient 08:15:24 INSTRUMENTATION CONTROLS ENGINEER Kylie boyd [facility] CPT-31819 Level 2 Est. Patient 14:27:16 INSTRUMENTATION CONTROLS ENGINEER Kylie boyd [facility] CPT-20906 Level 3 Est. Patient 17:54:48 CDT Kylie boyd [facility] CPT-05155 Level 3 Est. Patient 16:26:30 CDT Kina blackmon [facility] CPT-85715 Level 3 New Patient 16:22:01 INSTRUMENTATION CONTROLS ENGINEER Adam Yates MD [facility] CPT-55631 Level 4 Est. Patient 17:00:48 CDT Kylie Lund [facility] CPT-21863 Level 3 Est. Patient 13:15:54 CDT Kylie boyd [facility] CPT-20489 Level 3 Est. Patient 09:10:11 CDT Kylie Lund [facility] CPT-16064 Level 4 Est. Patient 12:08:30 INSTRUMENTATION CONTROLS ENGINEER Hope cohn MD PhD [facility] CPT-32149 Level 4 Est. Patient 19:08:42 INSTRUMENTATION CONTROLS ENGINEER Hope cohn MD [facility] CPT-02622 Level 4 Est. Patient 20:04:51 CDT Hope cohn MD PhD [facility] CPT-57332 Level 3 New Patient 01:46:11 INSTRUMENTATION CONTROLS ENGINEER Hope landers MD PhD [facility] Procedures Code Procedure Name Date Entry Date Standard Desc ription CPT-92898 Bone Density - XRAY USE ONLY 11:51:35 CDT 2 CPT-36613 Free T4 - LAB USE ONLY 11:44:37 CDT CPT-89801 TSH - LAB USE ONLY 11:44:37 CDT CPT-84783 Venipuncture Draw Fee 11:44:37 CDT CPT-J0897 Prolia 60 mg 10:36:55 CDT CPT-39281 Abx/Therapy Injection 10:36:55 CDT CPT-45373 Venipuncture Draw Fee 13:34:11 CDT CPT-G0439 [facility] Annual Wellness Exam 09:15:19 CDT CPT-87633 Postop F/U Visit 15:45:41 CDT CPT-00536 Sono Soft Tissue Head and Neck - XRAY US E ONLY 11:56:06 INSTRUMENTATION CONTROLS ENGINEER CPT-64322 Abx/Therapy Injection 09:40:08 INSTRUMENTATION CONTROLS ENGINEER CPT-J0897 Prolia 60 mg 09:40:08 INSTRUMENTATION CONTROLS ENGINEER CPT-91387 First Vx - Ix admin for Medicare patients 02/08 10:02:45 CDT CPT-70454 Fluzone Quadrivalent Intramuscular Suspe nsion 0.5 ML 10:02:45 CDT CPT-75508 Magnesium - LAB USE ONLY 09:41:00 CDT 12/09 CPT-67060 Renal Panel - LAB USE ONLY 09:41:00 CDT 201 09/17/01 CPT-41339 Venipuncture Draw Fee 09:41:00 CDT CPT-16639 Calcium - LAB USE ONLY 17:25:11 CDT CPT-J0897 Prolia 60 mg 15:10:59 CDT CPT-69097 Abx/Therapy Injection 15:10:59 CDT CPT-G0439 Subsequent Annual Wellness Exam 14:29:19 CDT CPT-38509 Venipuncture Draw Fee 10:59:04 CDT CPT-26719 CMP - LAB USE ONLY 10:59:04 CDT CPT-88600 CBC with Diff - LAB USE ONLY 10:59:03 CDT 2 CPT-J0897 Prolia 60 mg 15:46:54 INSTRUMENTATION CONTROLS ENGINEER CPT-94744 Abx/Therapy Injection 15:46:54 INSTRUMENTATION CONTROLS ENGINEER CPT-24867 Microalbumin - LAB USE ONLY 09:41:32 INSTRUMENTATION CONTROLS ENGINEER 20 23/01/15 CPT-67392 Free T4 - LAB USE ONLY 09:41:32 INSTRUMENTATION CONTROLS ENGINEER CPT-89504 TSH - LAB USE ONLY 09:41:32 INSTRUMENTATION CONTROLS ENGINEER CPT-63612 BMP - LAB USE ONLY 09:41:32 INSTRUMENTATION CONTROLS ENGINEER CPT-47601 Venipuncture Draw Fee 09:41:32 INSTRUMENTATION CONTROLS ENGINEER CPT-37629 First Vx - Ix admin for Medicare patients 11:19:30 CDT CPT-44410 Fluzone High-Dose Intramuscular Suspension 12/07 11:19:30 CDT CPT-J0897 Prolia 60 mg 14:55:42 CDT CPT-11479 Abx/Therapy Injection 14:55:42 CDT CPT-77886 Bone Density - XRAY USE ONLY 10:27:12 CDT 2 CPT-G0439 Subsequent Annual Wellness Exam 17:54:53 CDT CPT-52989 Foot, left, comp min 3V - XRAY USE ONLY 12:22:49 CDT CPT-G0009 Administration of Pneumococcal Vaccine 3 12:18:00 CDT CPT-31116 Pneumovax 23 Injection Injectable 25 MCG /0.5ML 12:18:00 CDT CPT-J0897 Prolia 60 mg 14:14:16 INSTRUMENTATION CONTROLS ENGINEER CPT-72479 Abx/Therapy Injection 14:14:15 INSTRUMENTATION CONTROLS ENGINEER CPT-62143 Lipid - LAB USE ONLY 10:01:52 INSTRUMENTATION CONTROLS ENGINEER 2 CPT-87994 Calcium - LAB USE ONLY 10:01:51 INSTRUMENTATION CONTROLS ENGINEER CPT-50719 Venipuncture Draw Fee 10:01:51 INSTRUMENTATION CONTROLS ENGINEER CPT-LR Lesion Removal 16:22:01 INSTRUMENTATION CONTROLS ENGINEER CPT-14946 TSH - LAB USE ONLY 14:26:02 CDT CPT-36003 CMP - LAB USE ONLY 14:26:01 CDT CPT-83720 CBC with Diff - LAB USE ONLY 14:26:01 CDT 2 CPT-17385 Venipuncture Draw Fee 14:26:01 CDT CPT-87544 First Vx - Ix admin for Medicare patients 13:27:08 CDT CPT-86553 Fluzone High-Dose Intramuscular Suspension 11/26 13:27:08 CDT CPT-G0438 Initial Annual Wellness Exam 14:19:57 CD T CPT-G0009 Administration of Pneumococcal Vaccine 9 11:36:25 CDT CPT-94893 Prevnar 13 Intramuscular Suspension 1 1:36:25 CDT CPT-54638 Prevnar 13 Intramuscular Suspension 1 0:40:58 CDT CPT-J0897 Prolia 60 mg 10:37:16 CDT CPT-47350 Abx/Therapy Injection 10:37:16 CDT CPT-J0897 Prolia 60 mg 16:09:34 INSTRUMENTATION CONTROLS ENGINEER CPT-J0897 Prolia 60 mg 11:10:35 INSTRUMENTATION CONTROLS ENGINEER CPT-23584 Abx/Therapy Injection 11:10:35 INSTRUMENTATION CONTROLS ENGINEER CPT-000 Give Appropriate Flu Vaccine 17:01:15 INSTRUMENTATION CONTROLS ENGINEER 2 CPT-55134 Fluzone High Dose (65+) 15:03:08 INSTRUMENTATION CONTROLS ENGINEER 02/15 CPT-87480 Immunization Single Admin 15:03:08 INSTRUMENTATION CONTROLS ENGINEER 2014 CPT-OV Office Visit 15:58:06 CDT CPT-J0897 Prolia 60 mg 08:45:38 CDT CPT-24948 Abx/Therapy Injection 08:45:38 CDT CPT-J3420 Vitamin B12 1000mcg (Cyanocobalamin) 09:26:20 INSTRUMENTATION CONTROLS ENGINEER CPT-60000 Abx/Therapy Injection 09:26:20 INSTRUMENTATION CONTROLS ENGINEER CPT-J3420 Vitamin B12 1000mcg (Cyanocobalamin) 09:44:40 INSTRUMENTATION CONTROLS ENGINEER CPT-70161 Abx/Therapy Injection 09:44:40 INSTRUMENTATION CONTROLS ENGINEER CPT-J3420 Vitamin B12 1000mcg (Cyanocobalamin) 09:15:54 INSTRUMENTATION CONTROLS ENGINEER CPT-99689 Abx/Therapy Injection 09:15:54 INSTRUMENTATION CONTROLS ENGINEER CPT-J3420 Vitamin B12 1000mcg (Cyanocobalamin) 09:46:44 INSTRUMENTATION CONTROLS ENGINEER CPT-29385 Abx/Therapy Injection 09:46:44 INSTRUMENTATION CONTROLS ENGINEER CPT-J3420 Vitamin B12 1000mcg (Cyanocobalamin) 09:47:34 INSTRUMENTATION CONTROLS ENGINEER CPT-18342 Abx/Therapy Injection 09:47:34 INSTRUMENTATION CONTROLS ENGINEER CPT-J3420 Vitamin B12 1000mcg (Cyanocobalamin) 14:35:50 INSTRUMENTATION CONTROLS ENGINEER CPT-J3420 Vitamin B12 1000mcg (Cyanocobalamin) 09:25:05 INSTRUMENTATION CONTROLS ENGINEER CPT-89781 Abx/Therapy Injection 09:25:05 INSTRUMENTATION CONTROLS ENGINEER CPT-G0008 Administration of Influenza Virus Vaccine 13:36:47 CDT CPT-64080 Fluzone High-Dose Intramuscular Suspension 11/15 13:36:47 CDT CPT-J0897 Prolia 60 mg 08:50:41 CDT CPT-25970 Abx/Therapy Injection 08:50:41 CDT CPT-29651 Bone Density 12:06:12 CDT CPT-40308 Bone Density 08:54:40 CDT CPT-OV Office Visit 15:37:02 CDT CPT-56054 Postop F/U Visit 15:47:49 CDT CPT-10723 Postop F/U Visit 15:21:02 CDT CPT-[facility] Transitional Care Mgmt-High 07:52:27 CDT 20 20/06/01 CPT-33879 Venipuncture Draw Fee 13:51:18 CDT CPT-54621 Venipuncture Draw Fee 10:14:55 INSTRUMENTATION CONTROLS ENGINEER CPT-92106 Venipuncture Draw Fee 13:39:45 INSTRUMENTATION CONTROLS ENGINEER CPT-OV Office Visit 15:11:22 INSTRUMENTATION CONTROLS ENGINEER CPT-73392 Venipuncture Draw Fee 09:20:49 INSTRUMENTATION CONTROLS ENGINEER CPT-69079 Venipuncture Draw Fee 16:52:15 INSTRUMENTATION CONTROLS ENGINEER CPT-71750 Venipuncture Draw Fee 10:37:24 INSTRUMENTATION CONTROLS ENGINEER CPT-10167 Venipuncture Draw Fee 08:21:21 INSTRUMENTATION CONTROLS ENGINEER CPT-56929 Venipuncture Draw Fee 08:30:20 INSTRUMENTATION CONTROLS ENGINEER CPT-07661 Venipuncture Draw Fee 14:53:21 INSTRUMENTATION CONTROLS ENGINEER CPT-92152 Venipuncture Draw Fee 09:40:56 INSTRUMENTATION CONTROLS ENGINEER CPT-31648 Venipuncture Draw Fee 10:30:47 INSTRUMENTATION CONTROLS ENGINEER CPT-71480 Venipuncture Draw Fee 10:46:17 INSTRUMENTATION CONTROLS ENGINEER CPT-49460 Venipuncture Draw Fee 11:12:45 INSTRUMENTATION CONTROLS ENGINEER CPT-39824 Venipuncture Draw Fee 09:53:33 INSTRUMENTATION CONTROLS ENGINEER CPT-04365 Venipuncture Draw Fee 11:53:51 INSTRUMENTATION CONTROLS ENGINEER CPT-79114 Venipuncture Draw Fee 10:33:50 INSTRUMENTATION CONTROLS ENGINEER CPT-77463 Venipuncture Draw Fee 10:05:01 INSTRUMENTATION CONTROLS ENGINEER CPT-07848 Venipuncture Draw Fee 14:32:52 INSTRUMENTATION CONTROLS ENGINEER CPT-80443 Venipuncture Draw Fee 09:46:13 INSTRUMENTATION CONTROLS ENGINEER CPT-37422 Venipuncture Draw Fee 11:34:27 INSTRUMENTATION CONTROLS ENGINEER CPT-44265 Venipuncture Draw Fee 13:17:16 INSTRUMENTATION CONTROLS ENGINEER CPT-00371 Venipuncture Draw Fee 12:05:39 CDT CPT-41678 Venipuncture Draw Fee 12:49:12 CDT CPT-12342 Venipuncture Draw Fee 12:37:18 CDT CPT-15506 Venipuncture Draw Fee 10:57:11 CDT CPT-35101 Venipuncture Draw Fee 13:47:40 CDT CPT-19162 Venipuncture Draw Fee 10:02:17 CDT CPT-45942 TB Tubersol 17:32:32 CDT CPT-OV Office Visit 16:21:53 CDT CPT-OV Office Visit 15:49:22 CDT CPT-OV Office Visit 17:16:31 CDT CPT-OV Office Visit 10:43:31 CDT
--- OUTSIDE RECORDS SUMMARY | 2019-02-09 11:40 | XMS REPORT | Clinical Summary ---
Author Author Renaldo, Florecita Munoz Organization [facility] Address Unknown Phone Unavailable Allergies, Adverse Reactions, [...] PhD Hyperpotassemia GERD 530.81 Resolved Kylie Yokum STUDY SPECIALIST Esophageal reflux Health maintenance exam V70.0 Resolved Adolfo Yates MD Routine general medical examination at a health care facility Anemia 285.9 Resolved Kylie Yanet STUDY SPECIALIST Anemia, unspecified Personal history of malignant neoplasm of large intestine V10.05 Active Adam Yates MD Personal history of malignant neoplasm of large intestine Hypomagnesemia 275.2 Resolved Kylie Yanet STUDY SPECIALIST Disorders of magnesium metabolism Weakness 780.79 Resolved [...] Sebaceous cyst, scalp 706.2 Resolved Kylie Yokum STUDY SPECIALIST Sebaceous cyst Cervical lymphadenopathy, anterior, left 785.6 Resolv ed Kylie Yokum STUDY SPECIALIST Enlargement of lymph nodes Need for prophylactic vaccination and inoculation against in fluenza V04.81 Resolved Adam Yates MD Need for prophylactic vaccination and inoculation against influenza Preventive health care V70.0 Resolved Kylie Lundu m STUDY SPECIALIST Routine general medical examination at a health care facility Thyroid nodule, left 241.0 Resolved Selena Yates MD Nontoxic uninodular goiter Screening mammogram V76.12 Resolved Kylie Yokum A PRN Other screening mammogram Mandy 706.2 Resolved Kylie Yokum STUDY SPECIALIST Sebaceous cyst Colon cancer, ascending 153.6 Resolved Kylie Yok um STUDY SPECIALIST Malignant neoplasm of ascending colon Foot pain, left 729.5 Resolved Kylie Yokum STUDY SPECIALIST Pain in limb Splinter 919.6 Resolved Kylie Yokum STUDY SPECIALIST Superficial foreign body (splinter) of other, multiple, and unspecified sites, without major open wound and without mention of infection Rash 782.1 Resolved Kylie Yokum STUDY SPECIALIST Rash and other nonspecific skin eruption Cyst 706.2 Resolved Kylie Yokum STUDY SPECIALIST Sebaceous cyst Body Mass Index 23.0-23.9 Adult Refinement 2017 Kylie Yokum STUDY SPECIALIST Body Mass Index between 19-24, adult BMI [...] RIGHT LOWER QUADRANT ICD-789.03 Inactive Kina Joshua STUDY SPECIALIST ADENOCARCINOMA, COLON, 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 Dick Yates MD ABDOMINAL PAIN, GENERALIZED ICD-789.07 Inactive Hope Benavidez MD PhD FEVER UNSPECIFIED ICD-780.60 Inactive Hope cohn MD PhD UNSPECIFIED VENOUS INSUFFICIENCY ICD-459.81 Elda ctive Adam Yates MD ADENOCARCINOMA, 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 Inac tive Hope Benavidez MD PhD Hyperkalemia ICD-276.7 Inactive Hope Benavidez MD PhD GERD ICD-530.81 Inactive Kylieshubham Holt STUDY SPECIALIST 2015 Health maintenance exam ICD-V70.0 Bam Yates MD Anemia ICD-285.9 Inactive Kylieshubham Holt STUDY SPECIALIST 07/24 Hypomagnesemia ICD-275.2 Inactive Kylie Holt STUDY SPECIALIST Weakness ICD-780.79 Inactive Hope Benavidez MD P [...] cyst, scalp ICD-706.2 Inactive Tracy hi Yokum STUDY SPECIALIST Cervical lymphadenopathy, anterior, left ICD-785.6 Inactive Kylie Yokum STUDY SPECIALIST Need for prophylactic vaccination and inoculation against in fluenza ICD-V04.81 Inactive Adam Yates MD Preventive health care ICD-V70.0 Inactive Ka thi Yokum STUDY SPECIALIST Thyroid nodule, left ICD-241.0 Inactive Selena Yates MD Screening mammogram ICD-V76.12 Inactive Kylie Yokum STUDY SPECIALIST Mandy ICD-706.2 Inactive Kylie Yokum STUDY SPECIALIST 07/20 Colon cancer, ascending ICD-153.6 Inactive K athi Yokum STUDY SPECIALIST Foot pain, left ICD-729.5 Inactive Kylie Yokum STUDY SPECIALIST Splinter ICD-919.6 Inactive Kylie Yokum STUDY SPECIALIST 2017 Rash ICD-782.1 Inactive Kylie Yokum STUDY SPECIALIST 07/25 Cyst ICD-706.2 Inactive Kylie Yokum STUDY SPECIALIST 08/11 Unspecified fall, initial encounter ICD-E888.9 Inactive Kylie Yokum STUDY SPECIALIST Eye pain, left ICD-379.91 Inactive Kylie Holt [...] other medications for hypothyroidism. LEVOTHYROX INE SODIUM 03165635663 Active Kylie Holt APRN Active VOLTAREN 1 % TRANSDERMAL GEL apply 2 grams q 6-8 hour to left arm as needed for pain DICLOFENAC SODIUM 56528234100 Active Kylie Holt APR N Active IMODIUM A-D 2 MG ORAL TABLET 1 tablet twice a day LOPERAMIDE HCL 65395977538 Active Kylie Holt APRN Active COQ10 100 MG ORAL CAPSULE 1 daily COENZYME Q10 819813 44461 Active LETY aNtion Active VITAMIN D3 2000 UNIT ORAL CAPSULE Melaleuca-One daily CHOLECALCIFEROL 44517596867 Active Kylie Holt APRN Active PROBIOTIC DAILY ORAL CAPSULE Take one daily PROBIO TIC PRODUCT 75685944511 Active Kylie Holt APRN Active IRON 325 (65 Fe) MG ORAL TABLET 1 every other day FERROUS SULFATE 05650633416 No Longer Active Kylie Yokum STUDY SPECIALIST Active FLORANEX ORAL PACKET 1 pack three times daily, for bowel health LACTOBACILLUS 76257791728 No Longer Active Kylie Yokum STUDY SPECIALIST Active LOMOTIL 2.5-0.025 MG ORAL TABLET 1 tab by mouth prn 20 23/10/23 DIPHENOXYLATE-ATROPINE 37058742910 No Longer Active Kylie Yokum STUDY SPECIALIST Active MAGNESIUM GLUCONATE 250 MG ORAL TABLET 1 tab tid 23/10/23 MAGNESIUM GLUCONATE 21899931083 No Longer Active Kylie Yokum STUDY SPECIALIST Active CYANOCOBALAMIN 1000 MCG/ML INJECTION SOLUTION 1 injection ev ruben 2 weeks CYANOCOBALAMIN 59382652737 No Longer Active Kylie Yok um STUDY SPECIALIST Active ATENOLOL 25 MG ORAL TABLET 1/2 pill by mouth daily, fo r headaches, blood pressure ATENOLOL 07573571694 Active Kylie Yokum STUDY SPECIALIST Active PROPRANOLOL HCL 80 MG ORAL TABLET 1 tab tue. and thur. PROPRANOLOL HCL 53904737492 No Longer Active Hope Benavidez MD PhD A ctive VITAMIN D3 4000 IU 1 tab 3 times daily VITAMIN D3 4000 IU No Longer Active Hope Benavidez MD PhD Active BACTRIM DS 800-160 MG ORAL TABLET 1 pill by mouth twice claudio y, for UTI SULFAMETHOXAZOLE-TRIMETHOPRIM 22591555010 No Longer Active Hope Benavidez MD PhD Active PROLIA 60 MG/ML SUBCUTANEOUS SOLUTION 1 shot every 6 months for osteoprosis DENOSUMAB 52459938992 Active Hope Benavidez MD PhD Active CALCIUM + D + K 750-500-40 MG-UNT-MCG ORAL TABLET 1 tab by m outh twice daily CALCIUM-VITAMIN D-VITAMIN K 43781724611 Active Hope valdez MD PhD Active DAILY VALUE MULTIVITAMIN ORAL TABLET 1 tab by mouth twice daily 201 05/16/14 MULTIPLE VITAMIN 08100021049 Active Hope Benavidez MD PhD Acti ve FISH OIL 306 MG CAPS 1 tab by mouth three times daily OMEGA-3 FATTY ACIDS 60496126029 Active Hope Benavidez MD PhD Active LUTEIN 10 MG ORAL TABLET 1 tab daily LUTEIN 73797978 408 Active Hope Benavidez MD PhD Active TRIAMTERENE-HCTZ 37.5-25 MG ORAL TABLET 1 tab by mouth daily 10/22 TRIAMTERENE-HCTZ 85712059723 Active Kylie Holt STUDY SPECIALIST Active CYCLOBENZAPRINE HCL 10 MG ORAL TABLET 1 tablet by mout h three times daily as needed for headaches CYCLOBENZAPRINE HCL 39719000370 No Longer Active Adam Yates MD Active OMEPRAZOLE 20 MG ORAL CAPSULE DELAYED RELEASE 1 tablet by mo [facility] daily for GERD OMEPRAZOLE 43112804001 No Longer Active Adam Yates MD Active ZOFRAN 8 MG ORAL TABLET 1 tab by mouth every 12 hours prn 4 ONDANSETRON HCL 87887462694 No Longer Active Adam Yates MD Active PHENADOZ 25 MG RECTAL SUPPOSITORY 1 every 4 hrs. PRN 2 PROMETHAZINE HCL 81587787535 No Longer Active Adam Yates MD A ctive POTASSIUM CHLORIDE 20 MEQ ORAL PACKET by mouth twice a day prn 2 POTASSIUM CHLORIDE 93031475310 No Longer Active Adam Carpenter MD Active PROMETHAZINE HCL 25 MG ORAL TABLET 1 Q. 4 hr. PRN PROMETHAZINE HCL 93193280741 No Longer Active Adam Yates MD Active INNOPRAN XL 120 MG ORAL CAPSULE EXTENDED RELEASE 24 HO UR Take one by mouth daily PROPRANOLOL HCL SR BEADS 42222570270 No Longer Active Adam Yates MD Active FLAGYL 500 MG ORAL TABLET 1 pill by mouth three times daily, for diarrhea METRONIDAZOLE 58758625030 No Longer Active Hope landers MD PhD Active DYAZIDE 37.5-25 MG ORAL CAPSULE 1 qd TRIA MTERENE-HCTZ 85360669933 No Longer Active Hope Benavidez MD PhD Active PROZAC 20 MG ORAL CAPSULE 1 q d FLUOXETINE HCL 83555669916 No Longer Active Hope Benavidez MD PhD Active SIMVASTATIN 40 MG ORAL TABLET 1 qd SIMVAS TATIN 80907565102 No Longer Active Adam Yates MD Active MELOXICAM 15 MG ORAL TABLET 1 qd MELOXICAM 38800314063 No Longer Active Adam Yates MD Active EXCEDRIN EXTRA STRENGTH 250-250-65 MG ORAL TABLET 1-2 q6h MT N headache [id number] 95906278336 Active Hope Benavidez MD PhD Active FLAGYL 500 MG ORAL TABLET 1 qid METRONIDAZOL E 90876561464 No Longer Active Adam Yates MD Active LEVAQUIN 750 MG ORAL TABLET 1 qd LEVOFLOXAC IN 69535618424 No Longer Active Adam Yates MD Active ADULT ASPIRIN LOW STRENGTH 81 MG ORAL TABLET DISINTEGRATING 1 qd ASPIRIN 05522358689 Active Hope Benavidez MD PhD Active LEVAQUIN 750 MG ORAL TABLET 1 qd LEVAQUIN 750 MG ORAL TABLET 072160 LEVOFLOXACIN Inactive FLAGYL 500 MG ORAL TABLET 1 qid FLAGYL 500 MG ORAL TABLET 410501 METRONIDAZOLE Inactive MELOXICAM 15 MG ORAL TABLET 1 qd MELOXICAM 15 MG ORAL TABLET 157487 MELOXICAM Inactive SIMVASTATIN 40 MG ORAL TABLET 1 qd SIMVASTATIN 40 MG ORAL TABLET 939208 SIMVASTATIN Inactive PROZAC 20 MG ORAL CAPSULE 1 q d PROZAC 20 MG ORAL CAPSULE 592727 FLUOXETINE HCL Inactive DYAZIDE 37.5-25 MG ORAL CAPSULE 1 qd 5 DYAZIDE 37.5-25 MG ORAL CAPSULE 127575 TRIAMTERENE-HCTZ Inactive INNOPRAN XL 120 MG ORAL CAPSULE EXTENDED RELEASE 24 HO UR Take one by mouth daily INNOPRAN XL 120 MG ORAL CAPSULE EXTENDED RELEASE 24 HOUR PROPRANOLOL HCL SR BEADS Inactive PROMETHAZINE HCL 25 MG ORAL TABLET 1 Q. 4 hr. PRN 2013 PROMETHAZINE HCL 25 MG ORAL TABLET 324143 PROMETHAZINE HCL Inactive POTASSIUM CHLORIDE 20 MEQ ORAL PACKET by mouth twice a day prn 2 POTASSIUM CHLORIDE 20 MEQ ORAL PACKET 7900047 POTASSIUM CHLORIDE Inactive PHENADOZ 25 MG RECTAL SUPPOSITORY 1 every 4 hrs. PRN 2 PHENADOZ 25 MG RECTAL SUPPOSITORY 242407 PROMETHAZINE HCL Inactive ZOFRAN 8 MG ORAL TABLET 1 tab by mouth every 12 hours prn 4 ZOFRAN 8 MG ORAL TABLET 666654 ONDANSETRON HCL Inactive OMEPRAZOLE 20 MG ORAL CAPSULE DELAYED RELEASE 1 tablet by mo ut daily for GERD OMEPRAZOLE 20 MG ORAL CAPSULE DELAYED RELEASE 19 8051 OMEPRAZOLE Inactive CYCLOBENZAPRINE HCL 10 MG ORAL TABLET 1 tablet by mout h three times daily as needed for headaches CYCLOBENZAPRINE HCL 10 MG ORAL TABLET 201661 CYCLOBENZAPRINE HCL Inactive VITAMIN D3 4000 IU 1 tab 3 times daily VITAMIN D3 4000 IU Inactive PROPRANOLOL HCL 80 MG ORAL TABLET 1 tab tue. and thur. PROPRANOLOL HCL 80 MG ORAL TABLET 369012 PROPRANOLOL HCL Inacti ve CYANOCOBALAMIN 1000 MCG/ML INJECTION SOLUTION 1 injection ev ruben 2 weeks CYANOCOBALAMIN 1000 MCG/ML INJECTION SOLUTION 30 9594 CYANOCOBALAMIN Inactive MAGNESIUM GLUCONATE 250 MG ORAL TABLET 1 tab tid 23/10/23 MAGNESIUM GLUCONATE 250 MG ORAL TABLET 237457 MAGNESIUM GLUCONATE Inactive LOMOTIL 2.5-0.025 MG ORAL TABLET 1 tab by mouth prn 20 23/10/23 LOMOTIL 2.5-0.025 MG ORAL TABLET 1782339 DIPHENOXYLATE-ATROPINE Inac tive FLORANEX ORAL PACKET 1 pack three times daily, for bowel health FLORANEX ORAL PACKET 85589348566 LACTOBACILLUS Inactive IRON 325 (65 Fe) MG ORAL TABLET 1 every other day 2015 IRON 325 (65 Fe) MG ORAL TABLET 587523 FERROUS SULFATE Inactive FLAGYL 500 MG ORAL TABLET 1 pill by mouth three times daily, for diarrhea FLAGYL 500 MG ORAL TABLET 975441 METRONIDAZOLE I nactive BACTRIM DS 800-160 MG ORAL TABLET 1 pill by mouth twice claudio y, for UTI BACTRIM DS 800-160 MG ORAL TABLET 093162 SULFAMETHOXAZOLE-TRIMETHOPRIM Inactive Advance Directives Directive Description Start [...] ... - Chemistry sodium, serum 141 mmol/L 853-683 8593/01/10 potassium, serum 3.7 mmol/L 3.5-5.2 chloride, serum 101 mmol/L 98-107 carbon dioxide, venous blood 31.0 mmol/L 21.0-32 .0 blood glucose 96 mg/dL 65-95 calcium, serum 9.5 mg/dL 8.5-10.1 urea nitrogen, blood 21 mg/dL 7-18 creatinine, serum 1.40 mg/dL 0.60-1.30 Estimated Glomerular Filtration Rate (calc) 39 (?) mL/min/1.73m2 = OR > 60 mL/min cholesterol, serum 211 mg/dL 665-425 4574/01/10 triglyceride, serum, fasting 77 mg/dL 30-200 HDL [...] 0.82 ng/dL 0.59-1.17 sodium, serum 142 mmol/L 872-669 5308/04/16 carbon dioxide, venous blood 30.0 mmol/L 21.0-32 [...] - Chelle radha sodium, serum 142 mmol/L 746-554 1504/11/02 potassium, serum 3.4 mmol/L 3.5-5.2 chloride, serum [...] 0.59-1.17 Encounters Code Encounter Date Provider Facility CPT-34497 [id number] Vst-Est Level III 09:15:19 [facility] Level 4 Est. Patient 15:35:24 COMMUNITY SUPPORT ASSOCIATE Adam Yates MD [facility] CPT-16891 Level 3 New Patient 12:08:54 COMMUNITY SUPPORT ASSOCIATE Adam Yates MD [facility] CPT-32482 [id number] Vst-Est Level IV 19:48:30 COMMUNITY SUPPORT ASSOCIATE Tracy Holt [facility] [place] CPT-98555 [id number] Vst-Est Level III 14:29:19 CDT Fiorella Holt [facility] [place] CPT-98250 Level 2 Est. Patient 14:58:26 CDT Kylie boyd [facility] CPT-75250 Level 3 Est. Patient 08:15:24 COMMUNITY SUPPORT ASSOCIATE Kylie boyd [facility] CPT-32040 Level 2 Est. Patient 14:27:16 COMMUNITY SUPPORT ASSOCIATE Kylie boyd [facility] CPT-88526 Level 3 Est. Patient 17:54:48 CDT Kylie boyd [facility] [place] CPT-56815 Level 3 Est. Patient 16:26:30 CDT Kina blackmon [facility] CPT-32867 Level 3 New Patient 16:22:01 COMMUNITY SUPPORT ASSOCIATE Adam Yates MD [facility] CPT-36048 Level 4 Est. Patient 17:00:48 CDT Kylie Lund [facility] CPT-92524 Level 3 Est. Patient 13:15:54 CDT Kylie boyd [facility] CPT-71084 Level 3 Est. Patient 09:10:11 CDT Kylie Lund [facility] CPT-97497 Level 4 Est. Patient 12:08:30 COMMUNITY SUPPORT ASSOCIATE Hope cohn MD PhD [facility] CPT-33042 Level 4 Est. Patient 19:08:42 COMMUNITY SUPPORT ASSOCIATE Hope cohn MD [facility] CPT-39695 Level 4 Est. Patient 20:04:51 CDT Hope cohn MD PhD [facility] CPT-22333 Level 3 New Patient 01:46:11 COMMUNITY SUPPORT ASSOCIATE Hope landers MD PhD [facility] Procedures Code Procedure Name Date Entry Date Standard Desc ription CPT-93622 Venipuncture Draw Fee 10:06:15 CDT CPT-80609 Bone Density - XRAY USE ONLY 11:51:35 CDT 2 CPT-73689 Free T4 - LAB USE ONLY 11:44:37 CDT CPT-56906 TSH - LAB USE ONLY 11:44:37 CDT CPT-46867 Venipuncture Draw Fee 11:44:37 CDT CPT-J0897 Prolia 60 mg 10:36:55 CDT CPT-34739 Abx/Therapy Injection 10:36:55 CDT CPT-00195 Venipuncture Draw Fee 13:34:11 CDT CPT-G0439 Subsequent Annual Wellness Exam 09:15:19 CDT CPT-17887 Postop F/U Visit 15:45:41 CDT CPT-82139 Sono Soft Tissue Head and Neck - XRAY US E ONLY 11:56:06 COMMUNITY SUPPORT ASSOCIATE CPT-35472 Abx/Therapy Injection 09:40:08 COMMUNITY SUPPORT ASSOCIATE CPT-J0897 Prolia 60 mg 09:40:08 COMMUNITY SUPPORT ASSOCIATE CPT-25171 First Vx - Ix admin for Medicare patients 02/08 10:02:45 CDT CPT-99166 Fluzone Quadrivalent Intramuscular Suspe nsion 0.5 ML 10:02:45 CDT CPT-66227 Magnesium - LAB USE ONLY 09:41:00 CDT 12/09 CPT-58277 Renal Panel - LAB USE ONLY 09:41:00 CDT 201 09/17/01 CPT-92955 Venipuncture Draw Fee 09:41:00 CDT CPT-45022 Calcium - LAB USE ONLY 17:25:11 CDT CPT-J0897 Prolia 60 mg 15:10:59 CDT CPT-39478 Abx/Therapy Injection 15:10:59 CDT CPT-G0439 MC Subsequent Annual Wellness Exam 14:29:19 CDT CPT-47030 Venipuncture Draw Fee 10:59:04 CDT CPT-45571 CMP - LAB USE ONLY 10:59:04 CDT CPT-47098 CBC with Diff - LAB USE ONLY 10:59:03 CDT CPT-J0897 Prolia 60 mg 15:46:54 COMMUNITY SUPPORT ASSOCIATE CPT-79601 Abx/Therapy Injection 15:46:54 COMMUNITY SUPPORT ASSOCIATE CPT-96442 Microalbumin - LAB USE ONLY 09:41:32 COMMUNITY SUPPORT ASSOCIATE 20 23/01/15 CPT-95225 Free T4 - LAB USE ONLY 09:41:32 COMMUNITY SUPPORT ASSOCIATE CPT-62975 TSH - LAB USE ONLY 09:41:32 COMMUNITY SUPPORT ASSOCIATE CPT-55465 BMP - LAB USE ONLY 09:41:32 COMMUNITY SUPPORT ASSOCIATE CPT-02808 Venipuncture Draw Fee 09:41:32 COMMUNITY SUPPORT ASSOCIATE CPT-78642 First Vx - Ix admin for Medicare patients 11:19:30 CDT CPT-14242 Fluzone High-Dose Intramuscular Suspension 12/07 11:19:30 CDT CPT-J0897 Prolia 60 mg 14:55:42 CDT CPT-87954 Abx/Therapy Injection 14:55:42 CDT CPT-02778 Bone Density - XRAY USE ONLY 10:27:12 CDT 2 CPT-G0439 Subsequent Annual Wellness Exam 17:54:53 CDT CPT-48804 Foot, left, comp min 3V - XRAY USE ONLY 12:22:49 CDT CPT-G0009 Administration of Pneumococcal Vaccine 3 12:18:00 CDT CPT-45250 Pneumovax 23 Injection Injectable 25 MCG /0.5ML 12:18:00 CDT CPT-J0897 Prolia 60 mg 14:14:16 COMMUNITY SUPPORT ASSOCIATE CPT-71685 Abx/Therapy Injection 14:14:15 COMMUNITY SUPPORT ASSOCIATE CPT-27440 Lipid - LAB USE ONLY 10:01:52 COMMUNITY SUPPORT ASSOCIATE 2 CPT-97216 Calcium - LAB USE ONLY 10:01:51 COMMUNITY SUPPORT ASSOCIATE CPT-54457 Venipuncture Draw Fee 10:01:51 COMMUNITY SUPPORT ASSOCIATE CPT-LR Lesion Removal 16:22:01 COMMUNITY SUPPORT ASSOCIATE CPT-37322 TSH - LAB USE ONLY 14:26:02 CDT CPT-70588 CMP - LAB USE ONLY 14:26:01 CDT CPT-11738 CBC with Diff - LAB USE ONLY 14:26:01 CDT 2 CPT-17123 Venipuncture Draw Fee 14:26:01 CDT CPT-95236 First Vx - Ix admin for Medicare patients 13:27:08 CDT CPT-43073 Fluzone High-Dose Intramuscular Suspension 11/26 13:27:08 CDT CPT-G0438 Initial Annual Wellness Exam 14:19:57 CD T CPT-G0009 Administration of Pneumococcal Vaccine 9 11:36:25 CDT CPT-31075 Prevnar 13 Intramuscular Suspension 1 1:36:25 CDT CPT-93807 Prevnar 13 Intramuscular Suspension 1 0:40:58 CDT CPT-J0897 Prolia 60 mg 10:37:16 CDT CPT-05574 Abx/Therapy Injection 10:37:16 CDT CPT-J0897 Prolia 60 mg 16:09:34 COMMUNITY SUPPORT ASSOCIATE CPT-J0897 Prolia 60 mg 11:10:35 COMMUNITY SUPPORT ASSOCIATE CPT-79730 Abx/Therapy Injection 11:10:35 COMMUNITY SUPPORT ASSOCIATE CPT-000 Give Appropriate Flu Vaccine 17:01:15 COMMUNITY SUPPORT ASSOCIATE 2 CPT-16687 Fluzone High Dose (65+) 15:03:08 COMMUNITY SUPPORT ASSOCIATE 02/15 CPT-00578 Immunization Single Admin 15:03:08 COMMUNITY SUPPORT ASSOCIATE 2014 CPT-OV Office Visit 15:58:06 CDT CPT-J0897 Prolia 60 mg 08:45:38 CDT CPT-37930 Abx/Therapy Injection 08:45:38 CDT CPT-J3420 Vitamin B12 1000mcg (Cyanocobalamin) 09:26:20 COMMUNITY SUPPORT ASSOCIATE CPT-92982 Abx/Therapy Injection 09:26:20 COMMUNITY SUPPORT ASSOCIATE CPT-J3420 Vitamin B12 1000mcg (Cyanocobalamin) 09:44:40 COMMUNITY SUPPORT ASSOCIATE CPT-35105 Abx/Therapy Injection 09:44:40 COMMUNITY SUPPORT ASSOCIATE CPT-J3420 Vitamin B12 1000mcg (Cyanocobalamin) 09:15:54 COMMUNITY SUPPORT ASSOCIATE CPT-11785 Abx/Therapy Injection 09:15:54 COMMUNITY SUPPORT ASSOCIATE CPT-J3420 Vitamin B12 1000mcg (Cyanocobalamin) 09:46:44 COMMUNITY SUPPORT ASSOCIATE CPT-30618 Abx/Therapy Injection 09:46:44 COMMUNITY SUPPORT ASSOCIATE CPT-J3420 Vitamin B12 1000mcg (Cyanocobalamin) 09:47:34 COMMUNITY SUPPORT ASSOCIATE CPT-50065 Abx/Therapy Injection 09:47:34 COMMUNITY SUPPORT ASSOCIATE CPT-J3420 Vitamin B12 1000mcg (Cyanocobalamin) 14:35:50 COMMUNITY SUPPORT ASSOCIATE CPT-J3420 Vitamin B12 1000mcg (Cyanocobalamin) 09:25:05 COMMUNITY SUPPORT ASSOCIATE CPT-72903 Abx/Therapy Injection 09:25:05 COMMUNITY SUPPORT ASSOCIATE CPT-G0008 Administration of Influenza Virus Vaccine 13:36:47 CDT CPT-45240 Fluzone High-Dose Intramuscular Suspension 11/15 13:36:47 CDT CPT-J0897 Prolia 60 mg 08:50:41 CDT CPT-94062 Abx/Therapy Injection 08:50:41 CDT CPT-09451 Bone Density 12:06:12 CDT CPT-16532 Bone Density 08:54:40 CDT CPT-OV Office Visit 15:37:02 CDT CPT-96053 Postop F/U Visit 15:47:49 CDT CPT-18523 Postop F/U Visit 15:21:02 CDT [facility] Transitional Care Mgmt-High 07:52:27 CDT 20 20/06/01 CPT-77846 Venipuncture Draw Fee 13:51:18 CDT CPT-84954 Venipuncture Draw Fee 10:14:55 COMMUNITY SUPPORT ASSOCIATE CPT-80289 Venipuncture Draw Fee 13:39:45 COMMUNITY SUPPORT ASSOCIATE CPT-OV Office Visit 15:11:22 COMMUNITY SUPPORT ASSOCIATE CPT-68582 Venipuncture Draw Fee 09:20:49 COMMUNITY SUPPORT ASSOCIATE CPT-39949 Venipuncture Draw Fee 16:52:15 COMMUNITY SUPPORT ASSOCIATE CPT-23808 Venipuncture Draw Fee 10:37:24 COMMUNITY SUPPORT ASSOCIATE CPT-58146 Venipuncture Draw Fee 08:21:21 COMMUNITY SUPPORT ASSOCIATE CPT-74315 Venipuncture Draw Fee 08:30:20 COMMUNITY SUPPORT ASSOCIATE CPT-17066 Venipuncture Draw Fee 14:53:21 COMMUNITY SUPPORT ASSOCIATE CPT-20795 Venipuncture Draw Fee 09:40:56 COMMUNITY SUPPORT ASSOCIATE CPT-33140 Venipuncture Draw Fee 10:30:47 COMMUNITY SUPPORT ASSOCIATE CPT-50946 Venipuncture Draw Fee 10:46:17 COMMUNITY SUPPORT ASSOCIATE CPT-44534 Venipuncture Draw Fee 11:12:45 COMMUNITY SUPPORT ASSOCIATE CPT-21705 Venipuncture Draw Fee 09:53:33 COMMUNITY SUPPORT ASSOCIATE CPT-75753 Venipuncture Draw Fee 11:53:51 COMMUNITY SUPPORT ASSOCIATE CPT-92872 Venipuncture Draw Fee 10:33:50 COMMUNITY SUPPORT ASSOCIATE CPT-70405 Venipuncture Draw Fee 10:05:01 COMMUNITY SUPPORT ASSOCIATE CPT-82323 Venipuncture Draw Fee 14:32:52 COMMUNITY SUPPORT ASSOCIATE CPT-20006 Venipuncture Draw Fee 09:46:13 COMMUNITY SUPPORT ASSOCIATE CPT-61593 Venipuncture Draw Fee 11:34:27 COMMUNITY SUPPORT ASSOCIATE CPT-44423 Venipuncture Draw Fee 13:17:16 COMMUNITY SUPPORT ASSOCIATE CPT-20406 Venipuncture Draw Fee 12:05:39 CDT CPT-17151 Venipuncture Draw Fee 12:49:12 CDT CPT-82980 Venipuncture Draw Fee 12:37:18 CDT CPT-49068 Venipuncture Draw Fee 10:57:11 CDT CPT-77221 Venipuncture Draw Fee 13:47:40 CDT CPT-02819 Venipuncture Draw Fee 10:02:17 CDT CPT-82140 TB Tubersol 17:32:32 CDT CPT-OV Office Visit 16:21:53 CDT CPT-OV Office Visit 15:49:22 CDT CPT-OV Office Visit 17:16:31 CDT CPT-OV Office Visit 10:43:31 CDT
--- OUTSIDE RECORDS SUMMARY | 2019-02-09 11:41 | XMS REPORT | Clinical Summary ---
Author Author Renaldo, Florecita Munoz Organization [facility] [employer] on original products Address Unknown Phone Unavailable Allergies, Adverse Reactions, [...] PhD Hyperpotassemia GERD 530.81 Resolved Kylie Yokum ALGEBRAIST Esophageal reflux Health maintenance exam V70.0 Resolved Adolfo Yates MD Routine general medical examination at a health care facility Anemia 285.9 Resolved Kylie Yanet ALGEBRAIST Anemia, unspecified Personal history of malignant neoplasm of large intestine V10.05 Active Adam Yates MD Personal history of malignant neoplasm of large intestine Hypomagnesemia 275.2 Resolved Kylie Yanet ALGEBRAIST Disorders of magnesium metabolism Weakness 780.79 Resolved [...] Sebaceous cyst, scalp 706.2 Resolved Kylie Yokum ALGEBRAIST Sebaceous cyst Cervical lymphadenopathy, anterior, left 785.6 Resolv ed Kylie Yokum ALGEBRAIST Enlargement of lymph nodes Need for prophylactic vaccination and inoculation against in fluenza V04.81 Resolved Adam Yates MD Need for prophylactic vaccination and inoculation against influenza Preventive health care V70.0 Resolved Kylie Lundu m ALGEBRAIST Routine general medical examination at a health care facility Thyroid nodule, left 241.0 Resolved Selena Yates MD Nontoxic uninodular goiter Screening mammogram V76.12 Resolved Kylie Yokum A PRN Other screening mammogram Mandy 706.2 Resolved Kylie Yokum ALGEBRAIST Sebaceous cyst Colon cancer, ascending 153.6 Resolved Kylie Yok um ALGEBRAIST Malignant neoplasm of ascending colon Foot pain, left 729.5 Resolved Kylie Yokum ALGEBRAIST Pain in limb Splinter 919.6 Resolved Kylie Yokum ALGEBRAIST Superficial foreign body (splinter) of other, multiple, and unspecified sites, without major open wound and without mention of infection Rash 782.1 Resolved Kylie Yokum ALGEBRAIST Rash and other nonspecific skin eruption Cyst 706.2 Resolved Kylie Yokum ALGEBRAIST Sebaceous cyst Body Mass Index 23.0-23.9 Adult Refinement 2017 Kylie Yokum ALGEBRAIST Body Mass Index between 19-24, adult BMI [...] RIGHT LOWER QUADRANT ICD-789.03 Inactive Kina Joshua ALGEBRAIST ADENOCARCINOMA, COLON, 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 Dick Yates MD ABDOMINAL PAIN, GENERALIZED ICD-789.07 Inactive Hope Benavidez MD PhD FEVER UNSPECIFIED ICD-780.60 Inactive Hope cohn MD PhD UNSPECIFIED VENOUS INSUFFICIENCY ICD-459.81 Elda ctive Adam Yates MD ADENOCARCINOMA, 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 Inac tive Hope Benavidez MD PhD Hyperkalemia ICD-276.7 Inactive Hope Benavidez MD PhD GERD ICD-530.81 Inactive Kylieshubham Holt ALGEBRAIST 2015 Health maintenance exam ICD-V70.0 Bam Yates MD Anemia ICD-285.9 Inactive Kylieshubham Holt ALGEBRAIST 07/24 Hypomagnesemia ICD-275.2 Inactive Kylie Holt ALGEBRAIST Weakness ICD-780.79 Inactive Hope Benavidez MD P [...] cyst, scalp ICD-706.2 Inactive Tracy hi Yokum ALGEBRAIST Cervical lymphadenopathy, anterior, left ICD-785.6 Inactive Kylie Yokum ALGEBRAIST Need for prophylactic vaccination and inoculation against in fluenza ICD-V04.81 Inactive Adam Yates MD Thyroid nodule, left ICD-241.0 Inactive Selena Yates MD Screening mammogram ICD-V76.12 Inactive Kylie Yokum ALGEBRAIST Mandy ICD-706.2 Inactive Kylie Yokum ALGEBRAIST 07/20 Colon cancer, ascending ICD-153.6 Inactive K athi Yokum ALGEBRAIST Foot pain, left ICD-729.5 Inactive Kylie Yokum ALGEBRAIST Splinter ICD-919.6 Inactive Kylie Yokum ALGEBRAIST 2017 Rash ICD-782.1 Inactive Kylie Yokum ALGEBRAIST 07/25 Cyst ICD-706.2 Inactive Kylie Yokum ALGEBRAIST 08/11 Unspecified fall, initial encounter ICD-E888.9 Inactive Kylie Yokum ALGEBRAIST Eye pain, left ICD-379.91 Inactive Kylie Yokum ALGEBRAIST Pharyngitis, acute ICD-074.0 Inactive Kavin Yates MD Preventive health care ICD-V70.0 Inactive Fiorella weston Yanet REYES Hypomagnesemia ICD-275.2 Inactive Adam Franklin [...] other medications for hypothyroidism. LEVOTHYROX INE SODIUM 77018987623 Active Kylie Holt APRN Active VOLTAREN 1 % TRANSDERMAL GEL apply 2 grams q 6-8 hour to left arm as needed for pain DICLOFENAC SODIUM 75668469983 Active Kylie Holt APR N Active IMODIUM A-D 2 MG ORAL TABLET 1 tablet twice a day LOPERAMIDE HCL 08625002683 Active Kylie Holt APRN Active COQ10 100 MG ORAL CAPSULE 1 daily COENZYME Q10 067271 97521 Active LETY Nation Active VITAMIN D3 2000 UNIT ORAL CAPSULE Melaleuca-One daily CHOLECALCIFEROL 29713814957 Active Kylie Holt APRN Active PROBIOTIC DAILY ORAL CAPSULE Take one daily PROBIO TIC PRODUCT 52210532342 Active Kylie Holt APRN Active IRON 325 (65 Fe) MG ORAL TABLET 1 every other day FERROUS SULFATE 71883245730 No Longer Active Kylie Yokum ALGEBRAIST Active FLORANEX ORAL PACKET 1 pack three times daily, for bowel health LACTOBACILLUS 36727357154 No Longer Active Kylie Yokum ALGEBRAIST Active LOMOTIL 2.5-0.025 MG ORAL TABLET 1 tab by mouth prn 20 23/10/23 DIPHENOXYLATE-ATROPINE 28632835083 No Longer Active Kylie Yokum ALGEBRAIST Active MAGNESIUM GLUCONATE 250 MG ORAL TABLET 1 tab tid 23/10/23 MAGNESIUM GLUCONATE 82211506524 No Longer Active Kylie Yokum ALGEBRAIST Active CYANOCOBALAMIN 1000 MCG/ML INJECTION SOLUTION 1 injection ev ruben 2 weeks CYANOCOBALAMIN 39524042647 No Longer Active Kylie Yok um ALGEBRAIST Active ATENOLOL 25 MG ORAL TABLET 1/2 pill by mouth daily, fo r headaches, blood pressure ATENOLOL 08962255437 Active Kylie Yokum ALGEBRAIST Active PROPRANOLOL HCL 80 MG ORAL TABLET 1 tab tue. and thur. PROPRANOLOL HCL 57031789200 No Longer Active Hope Benavidez MD PhD A ctive VITAMIN D3 4000 IU 1 tab 3 times daily VITAMIN D3 4000 IU No Longer Active Hope Benavidez MD PhD Active BACTRIM DS 800-160 MG ORAL TABLET 1 pill by mouth twice claudio y, for UTI SULFAMETHOXAZOLE-TRIMETHOPRIM 76256417746 No Longer Active Hope Benavidez MD PhD Active PROLIA 60 MG/ML SUBCUTANEOUS SOLUTION 1 shot every 6 months for osteoprosis DENOSUMAB 72015471305 Active Hope Benavidez MD PhD Active CALCIUM + D + K 750-500-40 MG-UNT-MCG ORAL TABLET 1 tab by m outh twice daily CALCIUM-VITAMIN D-VITAMIN K 85431401819 Active Hope valdez MD PhD Active DAILY VALUE MULTIVITAMIN ORAL TABLET 1 tab by mouth twice daily 201 05/16/14 MULTIPLE VITAMIN 77252544117 Active Hope Benavidez MD PhD Acti ve FISH OIL 306 MG CAPS 1 tab by mouth three times daily OMEGA-3 FATTY ACIDS 14748760351 Active Hope Benavidez MD PhD Active LUTEIN 10 MG ORAL TABLET 1 tab daily LUTEIN 33844186 408 Active Hope Benavidez MD PhD Active TRIAMTERENE-HCTZ 37.5-25 MG ORAL TABLET 1 tab by mouth daily 10/22 TRIAMTERENE-HCTZ 46308898767 Active Kylie Holt ALGEBRAIST Active CYCLOBENZAPRINE HCL 10 MG ORAL TABLET 1 tablet by mout h three times daily as needed for headaches CYCLOBENZAPRINE HCL 50402236890 No Longer Active Adam Yates MD Active OMEPRAZOLE 20 MG ORAL CAPSULE DELAYED RELEASE 1 tablet by mo [facility] daily for GERD OMEPRAZOLE 38768553073 No Longer Active Adam Yates MD Active ZOFRAN 8 MG ORAL TABLET 1 tab by mouth every 12 hours prn 4 ONDANSETRON HCL 97424424191 No Longer Active Adam Yates MD Active PHENADOZ 25 MG RECTAL SUPPOSITORY 1 every 4 hrs. PRN 2 PROMETHAZINE HCL 70810349696 No Longer Active Adam Yates MD A ctive POTASSIUM CHLORIDE 20 MEQ ORAL PACKET by mouth twice a day prn 2 POTASSIUM CHLORIDE 33101890744 No Longer Active Adam Carpenter MD Active PROMETHAZINE HCL 25 MG ORAL TABLET 1 Q. 4 hr. PRN PROMETHAZINE HCL 48398569199 No Longer Active Adam Yates MD Active INNOPRAN XL 120 MG ORAL CAPSULE EXTENDED RELEASE 24 HO UR Take one by mouth daily PROPRANOLOL HCL SR BEADS 80385868166 No Longer Active Adam Yates MD Active FLAGYL 500 MG ORAL TABLET 1 pill by mouth three times daily, for diarrhea METRONIDAZOLE 92046183199 No Longer Active Hope landers MD PhD Active DYAZIDE 37.5-25 MG ORAL CAPSULE 1 qd TRIA MTERENE-HCTZ 41280456980 No Longer Active Hope Benavidez MD PhD Active PROZAC 20 MG ORAL CAPSULE 1 q d FLUOXETINE HCL 77200632859 No Longer Active Hope Benavidez MD PhD Active SIMVASTATIN 40 MG ORAL TABLET 1 qd SIMVAS TATIN 47031845082 No Longer Active Adam Yates MD Active MELOXICAM 15 MG ORAL TABLET 1 qd MELOXICAM 54843214098 No Longer Active Adam Yates MD Active EXCEDRIN EXTRA STRENGTH 250-250-65 MG ORAL TABLET 1-2 q6h SD N headache [id number] 36735999858 Active Hope Benavidez MD PhD Active FLAGYL 500 MG ORAL TABLET 1 qid METRONIDAZOL E 59462696141 No Longer Active Adam Yates MD Active LEVAQUIN 750 MG ORAL TABLET 1 qd LEVOFLOXAC IN 16364656187 No Longer Active Adam Yates MD Active ADULT ASPIRIN LOW STRENGTH 81 MG ORAL TABLET DISINTEGRATING 1 qd ASPIRIN 49848345283 Active Hope Benavidez MD PhD Active LEVAQUIN 750 MG ORAL TABLET 1 qd LEVAQUIN 750 MG ORAL TABLET 017366 LEVOFLOXACIN Inactive FLAGYL 500 MG ORAL TABLET 1 qid FLAGYL 500 MG ORAL TABLET 318657 METRONIDAZOLE Inactive MELOXICAM 15 MG ORAL TABLET 1 qd MELOXICAM 15 MG ORAL TABLET 905625 MELOXICAM Inactive SIMVASTATIN 40 MG ORAL TABLET 1 qd SIMVASTATIN 40 MG ORAL TABLET 250359 SIMVASTATIN Inactive PROZAC 20 MG ORAL CAPSULE 1 q d PROZAC 20 MG ORAL CAPSULE 313305 FLUOXETINE HCL Inactive DYAZIDE 37.5-25 MG ORAL CAPSULE 1 qd 5 DYAZIDE 37.5-25 MG ORAL CAPSULE 281916 TRIAMTERENE-HCTZ Inactive INNOPRAN XL 120 MG ORAL CAPSULE EXTENDED RELEASE 24 HO UR Take one by mouth daily INNOPRAN XL 120 MG ORAL CAPSULE EXTENDED RELEASE 24 HOUR PROPRANOLOL HCL SR BEADS Inactive PROMETHAZINE HCL 25 MG ORAL TABLET 1 Q. 4 hr. PRN 2013 PROMETHAZINE HCL 25 MG ORAL TABLET 037528 PROMETHAZINE HCL Inactive POTASSIUM CHLORIDE 20 MEQ ORAL PACKET by mouth twice a day prn 2 POTASSIUM CHLORIDE 20 MEQ ORAL PACKET 6940595 POTASSIUM CHLORIDE Inactive PHENADOZ 25 MG RECTAL SUPPOSITORY 1 every 4 hrs. PRN 2 PHENADOZ 25 MG RECTAL SUPPOSITORY 650214 PROMETHAZINE HCL Inactive ZOFRAN 8 MG ORAL TABLET 1 tab by mouth every 12 hours prn 4 ZOFRAN 8 MG ORAL TABLET 795000 ONDANSETRON HCL Inactive OMEPRAZOLE 20 MG ORAL CAPSULE DELAYED RELEASE 1 tablet by mo ut daily for GERD OMEPRAZOLE 20 MG ORAL CAPSULE DELAYED RELEASE 19 8051 OMEPRAZOLE Inactive CYCLOBENZAPRINE HCL 10 MG ORAL TABLET 1 tablet by mout h three times daily as needed for headaches CYCLOBENZAPRINE HCL 10 MG ORAL TABLET 681487 CYCLOBENZAPRINE HCL Inactive VITAMIN D3 4000 IU 1 tab 3 times daily VITAMIN D3 4000 IU Inactive PROPRANOLOL HCL 80 MG ORAL TABLET 1 tab tue. and thur. PROPRANOLOL HCL 80 MG ORAL TABLET 829137 PROPRANOLOL HCL Inacti ve CYANOCOBALAMIN 1000 MCG/ML INJECTION SOLUTION 1 injection ev ruben 2 weeks CYANOCOBALAMIN 1000 MCG/ML INJECTION SOLUTION 30 9594 CYANOCOBALAMIN Inactive MAGNESIUM GLUCONATE 250 MG ORAL TABLET 1 tab tid 23/10/23 MAGNESIUM GLUCONATE 250 MG ORAL TABLET 057881 MAGNESIUM GLUCONATE Inactive LOMOTIL 2.5-0.025 MG ORAL TABLET 1 tab by mouth prn 20 23/10/23 LOMOTIL 2.5-0.025 MG ORAL TABLET 7796003 DIPHENOXYLATE-ATROPINE Inac tive FLORANEX ORAL PACKET 1 pack three times daily, for bowel health FLORANEX ORAL PACKET 24557514516 LACTOBACILLUS Inactive IRON 325 (65 Fe) MG ORAL TABLET 1 every other day 2015 IRON 325 (65 Fe) MG ORAL TABLET 145494 FERROUS SULFATE Inactive FLAGYL 500 MG ORAL TABLET 1 pill by mouth three times daily, for diarrhea FLAGYL 500 MG ORAL TABLET 756467 METRONIDAZOLE I nactive BACTRIM DS 800-160 MG ORAL TABLET 1 pill by mouth twice claudio y, for UTI BACTRIM DS 800-160 MG ORAL TABLET 903019 SULFAMETHOXAZOLE-TRIMETHOPRIM Inactive Advance Directives Directive Description Start [...] ... - Chemistry cholesterol, serum 211 mg/dL 292-784 0423/01/10 triglyceride, serum, fasting 77 mg/dL 30-200 HDL cholesterol, serum 70 mg/dL 32-60 LDL cholesterol, serum 126 mg/dL 0-130 TSH 1.19 m[iU]/mL 0.36-3.74 sodium, serum 141 mmol/L 950-987 7535/01/10 potassium, serum 3.7 mmol/L 3.5-5.2 chloride, serum [...] 0.82 ng/dL 0.59-1.17 sodium, serum 142 mmol/L 120-045 4292/04/16 carbon dioxide, venous blood 30.0 mmol/L 21.0-32 [...] - Chelle radha sodium, serum 142 mmol/L 687-856 9353/11/02 potassium, serum 3.4 mmol/L 3.5-5.2 chloride, serum [...] 0.59-1.17 Encounters Code Encounter Date Provider Facility CPT-82392 [id number] Vst-Est Level III 09:15:[facility] Est[facility] Patient 15:35:24 AUTO PARTS COUNTER PERSON Adam Yates MD [facility] CPT-89697 Level 3 New Patient 12:08:54 AUTO PARTS COUNTER PERSON Adam Yates MD [facility] CPT-08562 [id number] Vst-Est Level IV 19:48:30 AUTO PARTS COUNTER PERSON Tracy Holt [facility] CPT-05252 [id number] Vst-Est Level III 14:29:19 CDT Fiorella Holt [facility] CPT-47559 Level 2 Est. Patient 14:58:26 CDT Kylie boyd [facility] CPT-52671 Level 3 Est. Patient 08:15:24 AUTO PARTS COUNTER PERSON Kylie boyd [facility] CPT-19802 Level 2 Est. Patient 14:27:16 AUTO PARTS COUNTER PERSON Kylie boyd [facility] CPT-26127 Level 3 Est. Patient 17:54:48 CDT Kylie boyd [facility] CPT-28215 Level 3 Est. Patient 16:26:30 CDT Kina blackmon [facility] CPT-68903 Level 3 New Patient 16:22:01 AUTO [employer]S COUNTER PERSON Adam Yates MD [facility] CPT-65613 Level 4 Est. Patient 17:00:48 CDT Kylie Lund [facility] [place] [facility] CPT-34635 Level 3 Est. Patient 13:15:54 CDT Kylie boyd [facility] CPT-63232 Level 3 Est. Patient 09:10:11 CDT Kylie Lund [facility] CPT-45598 Level 4 Est. Patient 12:08:30 AUTO PARTS COUNTER PERSON Hope cohn MD PhD [facility] CPT-55702 Level 4 Est. Patient 19:08:42 AUTO PARTS COUNTER PERSON Hope chon MD [facility] CPT-58352 Level 4 Est. Patient 20:04:51 CDT Hope cohn MD PhD [facility] CPT-40081 Level 3 New Patient 01:46:11 AUTO PARTS COUNTER PERSON Hope landers MD PhD [facility] Procedures Code Procedure Name Date Entry Date Standard Desc ription CPT-72510 Bone Density - XRAY USE ONLY 11:51:35 CDT 2 CPT-64514 Free T4 - LAB USE ONLY 11:44:37 CDT CPT-13043 TSH - LAB USE ONLY 11:44:37 CDT CPT-00470 Venipuncture Draw Fee 11:44:37 CDT CPT-J0897 Prolia 60 mg 10:36:55 CDT CPT-18329 Abx/Therapy Injection 10:36:55 CDT CPT-08635 Venipuncture Draw Fee 13:34:11 CDT CPT-G0439 [facility] Annual Wellness Exam 09:15:19 CDT CPT-32476 Postop F/U Visit 15:45:41 CDT CPT-71913 Sono Soft Tissue Head and Neck - XRAY US E ONLY 11:56:06 AUTO PARTS COUNTER PERSON CPT-80843 Abx/Therapy Injection 09:40:08 AUTO PARTS COUNTER PERSON CPT-J0897 Prolia 60 mg 09:40:08 AUTO [employer]S COUNTER PERSON CPT-32677 First Vx - Ix admin for Medicare patients 02/08 10:02:45 CDT CPT-20709 Fluzone Quadrivalent Intramuscular Suspe nsion 0.5 ML 10:02:45 CDT CPT-77924 Magnesium - LAB USE ONLY 09:41:00 CDT 12/09 CPT-37905 Renal Panel - LAB USE ONLY 09:41:00 CDT 201 09/17/01 CPT-28182 Venipuncture Draw Fee 09:41:00 CDT CPT-87302 Calcium - LAB USE ONLY 17:25:11 CDT CPT-J0897 Prolia 60 mg 15:10:59 CDT CPT-38214 Abx/Therapy Injection 15:10:59 CDT CPT-G0439 Subsequent Annual Wellness Exam 14:29:19 CDT CPT-37961 Venipuncture Draw Fee 10:59:04 CDT CPT-30230 CMP - LAB USE ONLY 10:59:04 CDT CPT-89315 CBC with Diff - LAB USE ONLY 10:59:03 CDT 2 CPT-J0897 Prolia 60 mg 15:46:54 AUTO PARTS COUNTER PERSON CPT-62892 Abx/Therapy Injection 15:46:54 AUTO PARTS COUNTER PERSON CPT-93715 Microalbumin - LAB USE ONLY 09:41:32 AUTO PARTS COUNTER PERSON 20 23/01/15 CPT-24192 Free T4 - LAB USE ONLY 09:41:32 AUTO PARTS COUNTER PERSON CPT-99164 TSH - LAB USE ONLY 09:41:32 AUTO PARTS COUNTER PERSON CPT-23265 BMP - LAB USE ONLY 09:41:32 AUTO PARTS COUNTER PERSON CPT-59185 Venipuncture Draw Fee 09:41:32 AUTO PARTS COUNTER PERSON CPT-97625 First Vx - Ix admin for Medicare patients 11:19:30 CDT CPT-69112 Fluzone High-Dose Intramuscular Suspension 12/07 11:19:30 CDT CPT-J0897 Prolia 60 mg 14:55:42 CDT CPT-60737 Abx/Therapy Injection 14:55:42 CDT CPT-43024 Bone Density - XRAY USE ONLY 10:27:12 CDT 2 CPT-G0439 Subsequent Annual Wellness Exam 17:54:53 CDT CPT-68638 Foot, left, comp min 3V - XRAY USE ONLY 12:22:49 CDT CPT-G0009 Administration of Pneumococcal Vaccine 3 12:18:00 CDT CPT-39759 Pneumovax 23 Injection Injectable 25 MCG /0.5ML 12:18:00 CDT CPT-J0897 Prolia 60 mg 14:14:16 AUTO PARTS COUNTER PERSON CPT-71983 Abx/Therapy Injection 14:14:15 AUTO PARTS COUNTER PERSON CPT-41963 Lipid - LAB USE ONLY 10:01:52 AUTO PARTS COUNTER PERSON 2 CPT-28991 Calcium - LAB USE ONLY 10:01:51 AUTO PARTS COUNTER PERSON CPT-47332 Venipuncture Draw Fee 10:01:51 AUTO PARTS COUNTER PERSON CPT-LR Lesion Removal 16:22:01 AUTO PARTS COUNTER PERSON CPT-29916 TSH - LAB USE ONLY 14:26:02 CDT CPT-01893 CMP - LAB USE ONLY 14:26:01 CDT CPT-64049 CBC with Diff - LAB USE ONLY 14:26:01 CDT 2 CPT-01669 Venipuncture Draw Fee 14:26:01 CDT CPT-08928 First Vx - Ix admin for Medicare patients 13:27:08 CDT CPT-84272 Fluzone High-Dose Intramuscular Suspension 11/26 13:27:08 CDT CPT-G0438 Initial Annual Wellness Exam 14:19:57 CD T CPT-G0009 Administration of Pneumococcal Vaccine 9 11:36:25 CDT CPT-50984 Prevnar 13 Intramuscular Suspension 1 1:36:25 CDT CPT-67449 Prevnar 13 Intramuscular Suspension 1 0:40:58 CDT CPT-J0897 Prolia 60 mg 10:37:16 CDT CPT-54397 Abx/Therapy Injection 10:37:16 CDT CPT-J0897 Prolia 60 mg 16:09:34 AUTO PARTS COUNTER PERSON CPT-J0897 Prolia 60 mg 11:10:35 AUTO PARTS COUNTER PERSON CPT-99414 Abx/Therapy Injection 11:10:35 AUTO PARTS COUNTER PERSON CPT-000 Give Appropriate Flu Vaccine 17:01:15 AUTO PARTS COUNTER PERSON 2 CPT-29415 Fluzone High Dose (65+) 15:03:08 AUTO PARTS COUNTER PERSON 02/15 CPT-38221 Immunization Single Admin 15:03:08 AUTO PARTS COUNTER PERSON 2014 CPT-OV Office Visit 15:58:06 CDT CPT-J0897 Prolia 60 mg 08:45:38 CDT CPT-43243 Abx/Therapy Injection 08:45:38 CDT CPT-J3420 Vitamin B12 1000mcg (Cyanocobalamin) 09:26:20 AUTO PARTS COUNTER PERSON CPT-66845 Abx/Therapy Injection 09:26:20 AUTO PARTS COUNTER PERSON CPT-J3420 Vitamin B12 1000mcg (Cyanocobalamin) 09:44:40 AUTO PARTS COUNTER PERSON CPT-58227 Abx/Therapy Injection 09:44:40 AUTO PARTS COUNTER PERSON CPT-J3420 Vitamin B12 1000mcg (Cyanocobalamin) 09:15:54 AUTO PARTS COUNTER PERSON CPT-75657 Abx/Therapy Injection 09:15:54 AUTO PARTS COUNTER PERSON CPT-J3420 Vitamin B12 1000mcg (Cyanocobalamin) 09:46:44 AUTO PARTS COUNTER PERSON CPT-24479 Abx/Therapy Injection 09:46:44 AUTO PARTS COUNTER PERSON CPT-J3420 Vitamin B12 1000mcg (Cyanocobalamin) 09:47:34 AUTO PARTS COUNTER PERSON CPT-36979 Abx/Therapy Injection 09:47:34 AUTO PARTS COUNTER PERSON CPT-J3420 Vitamin B12 1000mcg (Cyanocobalamin) 14:35:50 AUTO PARTS COUNTER PERSON CPT-J3420 Vitamin B12 1000mcg (Cyanocobalamin) 09:25:05 AUTO PARTS COUNTER PERSON CPT-73688 Abx/Therapy Injection 09:25:05 AUTO PARTS COUNTER PERSON CPT-G0008 Administration of Influenza Virus Vaccine 13:36:47 CDT CPT-53202 Fluzone High-Dose Intramuscular Suspension 11/15 13:36:47 CDT CPT-J0897 Prolia 60 mg 08:50:41 CDT CPT-85085 Abx/Therapy Injection 08:50:41 CDT CPT-65301 Bone Density 12:06:12 CDT CPT-77206 Bone Density 08:54:40 CDT CPT-OV Office Visit 15:37:02 CDT CPT-97289 Postop F/U Visit 15:47:49 CDT CPT-76116 Postop F/U Visit 15:21:02 CDT [facility]PT-[facility] Transitional Care Mgmt-High 07:52:27 CDT 20 20/06/01 CPT-37355 Venipuncture Draw Fee 13:51:18 CDT CPT-45756 Venipuncture Draw Fee 10:14:55 AUTO [employer]S COUNTER PERSON CPT-31553 Venipuncture Draw Fee 13:39:45 AUTO PARTS COUNTER PERSON CPT-OV Office Visit 15:11:22 AUTO PARTS COUNTER PERSON CPT-08155 Venipuncture Draw Fee 09:20:49 AUTO PARTS COUNTER PERSON CPT-89835 Venipuncture Draw Fee 16:52:15 AUTO PARTS COUNTER PERSON CPT-02798 Venipuncture Draw Fee 10:37:24 AUTO PARTS COUNTER PERSON CPT-37741 Venipuncture Draw Fee 08:21:21 AUTO PARTS COUNTER PERSON CPT-89744 Venipuncture Draw Fee 08:30:20 AUTO PARTS COUNTER PERSON CPT-07856 Venipuncture Draw Fee 14:53:21 AUTO PARTS COUNTER PERSON CPT-01651 Venipuncture Draw Fee 09:40:56 AUTO PARTS COUNTER PERSON CPT-48288 Venipuncture Draw Fee 10:30:47 AUTO PARTS COUNTER PERSON CPT-27312 Venipuncture Draw Fee 10:46:17 AUTO PARTS COUNTER PERSON CPT-14508 Venipuncture Draw Fee 11:12:45 AUTO PARTS COUNTER PERSON CPT-48433 Venipuncture Draw Fee 09:53:33 AUTO PARTS COUNTER PERSON CPT-21445 Venipuncture Draw Fee 11:53:51 AUTO PARTS COUNTER PERSON CPT-01205 Venipuncture Draw Fee 10:33:50 AUTO PARTS COUNTER PERSON CPT-29503 Venipuncture Draw Fee 10:05:01 AUTO PARTS COUNTER PERSON CPT-27047 Venipuncture Draw Fee 14:32:52 AUTO PARTS COUNTER PERSON CPT-07132 Venipuncture Draw Fee 09:46:13 AUTO PARTS COUNTER PERSON CPT-86081 Venipuncture Draw Fee 11:34:27 AUTO PARTS COUNTER PERSON CPT-65398 Venipuncture Draw Fee 13:17:16 AUTO PARTS COUNTER PERSON CPT-78237 Venipuncture Draw Fee 12:05:39 CDT CPT-05596 Venipuncture Draw Fee 12:49:12 CDT CPT-95023 Venipuncture Draw Fee 12:37:18 CDT CPT-27497 Venipuncture Draw Fee 10:57:11 CDT CPT-13294 Venipuncture Draw Fee 13:47:40 CDT CPT-07186 Venipuncture Draw Fee 10:02:17 CDT CPT-48742 TB Tubersol 17:32:32 CDT CPT-OV Office Visit 16:21:53 CDT CPT-OV Office Visit 15:49:22 CDT CPT-OV Office Visit 17:16:31 CDT CPT-OV Office Visit 10:43:31 CDT
--- OUTSIDE RECORDS SUMMARY | 2019-02-09 11:41 | XMS REPORT | Clinical Summary ---
Author Author Renaldo, Florecita Munoz Organization [facility] [employer] Address Unknown Phone Unavailable Allergies, Adverse Reactions, [...] PhD Hyperpotassemia GERD 530.81 Resolved Kylie Yokum [employer] Esophageal reflux Health maintenance exam V70.0 Resolved Adolfo Yates MD Routine general medical examination at a health care facility Anemia 285.9 Resolved Kylie Yanet [employer] Anemia, unspecified Personal history of malignant neoplasm of large intestine V10.05 Active Adam Yates MD Personal history of malignant neoplasm of large intestine Hypomagnesemia 275.2 Resolved Kylie Yanet [employer] Disorders of magnesium metabolism Weakness 780.79 Resolved [...] Sebaceous cyst, scalp 706.2 Resolved Kylie Yokum [employer] Sebaceous cyst Cervical lymphadenopathy, anterior, left 785.6 Resolv ed Kylie Yokum [employer] Enlargement of lymph nodes Need for prophylactic vaccination and inoculation against in fluenza V04.81 Resolved Adam Yates MD Need for prophylactic vaccination and inoculation against influenza Preventive health care V70.0 Resolved Kylie Lundu m [employer] Routine general medical examination at a health care facility Thyroid nodule, left 241.0 Resolved Selena Yates MD Nontoxic uninodular goiter Screening mammogram V76.12 Resolved Kylie Yokum A PRN Other screening mammogram Mandy 706.2 Resolved Kylie Yokum [employer] Sebaceous cyst Colon cancer, ascending 153.6 Resolved Kylie Yok um [employer] Malignant neoplasm of ascending colon Foot pain, left 729.5 Resolved Kylie Yokum [employer] Pain in limb Splinter 919.6 Resolved Kylie Yokum [employer] Superficial foreign body (splinter) of other, multiple, and unspecified sites, without major open wound and without mention of infection Rash 782.1 Resolved Kylie Yokum [employer] Rash and other nonspecific skin eruption Cyst 706.2 Resolved Kylie Yokum [employer] Sebaceous cyst Body Mass Index 23.0-23.9 Adult Refinement 2017 Kylie Yokum [employer] Body Mass Index between 19-24, adult BMI [...] RIGHT LOWER QUADRANT ICD-789.03 Inactive Kina Joshua [employer] ADENOCARCINOMA, COLON, 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 Dick Yates MD ABDOMINAL PAIN, GENERALIZED ICD-789.07 Inactive Hope Benavidez MD PhD FEVER UNSPECIFIED ICD-780.60 Inactive Hope cohn MD PhD UNSPECIFIED VENOUS INSUFFICIENCY ICD-459.81 Elda ctive Adam Yates MD ADENOCARCINOMA, 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 Inac tive Hope Benavidez MD PhD Hyperkalemia ICD-276.7 Inactive Hope Benavidez MD PhD GERD ICD-530.81 Inactive Kylieshubham Holt [employer] 2015 Health maintenance exam ICD-V70.0 Bam Yates MD Anemia ICD-285.9 Inactive Kylieshubham Holt [employer] 07/24 Hypomagnesemia ICD-275.2 Inactive Kylie Holt [employer] Weakness ICD-780.79 Inactive Hope Benavidez MD P [...] cyst, scalp ICD-706.2 Inactive Tracy hi Yokum [employer] Cervical lymphadenopathy, anterior, left ICD-785.6 Inactive Kylie Yokum [employer] Need for prophylactic vaccination and inoculation against in fluenza ICD-V04.81 Inactive Adam Yates MD Preventive health care ICD-V70.0 Inactive Ka thi Yokum [employer] Thyroid nodule, left ICD-241.0 Inactive Selena Yates MD Screening mammogram ICD-V76.12 Inactive Kylie Yokum [employer] Mandy ICD-706.2 Inactive Kylie Yokum [employer] 07/20 Colon cancer, ascending ICD-153.6 Inactive K athi Yokum [employer] Foot pain, left ICD-729.5 Inactive Kylie Yokum [employer] Splinter ICD-919.6 Inactive Kylie Yokum [employer] 2017 Rash ICD-782.1 Inactive Kylie Yokum [employer] 07/25 Cyst ICD-706.2 Inactive Kylie Yokum [employer] 08/11 Unspecified fall, initial encounter ICD-E888.9 Inactive Kylie Yokum [employer] Eye pain, left ICD-379.91 Inactive Kylie Holt [...] other medications for hypothyroidism. LEVOTHYROX INE SODIUM 90014795921 Active Kylie Holt APRN Active VOLTAREN 1 % TRANSDERMAL GEL apply 2 grams q 6-8 hour to left arm as needed for pain DICLOFENAC SODIUM 78228725332 Active Kylie Holt APR N Active IMODIUM A-D 2 MG ORAL TABLET 1 tablet twice a day LOPERAMIDE HCL 24831898224 Active Kylie Holt APRN Active COQ10 100 MG ORAL CAPSULE 1 daily COENZYME Q10 364344 63135 Active LETY [place] Active VITAMIN D3 2000 UNIT ORAL CAPSULE Melaleuca-One daily CHOLECALCIFEROL 93788116568 Active Kylie Holt APRN Active PROBIOTIC DAILY ORAL CAPSULE Take one daily PROBIO TIC PRODUCT 81082704959 Active Kylie Holt APRN Active IRON 325 (65 Fe) MG ORAL TABLET 1 every other day FERROUS SULFATE 03025380723 No Longer Active Kylie Yokum [employer] Active FLORANEX ORAL PACKET 1 pack three times daily, for bowel health LACTOBACILLUS 08596995297 No Longer Active Kylie Yokum [employer] Active LOMOTIL 2.5-0.025 MG ORAL TABLET 1 tab by mouth prn 20 23/10/23 DIPHENOXYLATE-ATROPINE 33063909596 No Longer Active Kylie Yokum [employer] Active MAGNESIUM GLUCONATE 250 MG ORAL TABLET 1 tab tid 23/10/23 MAGNESIUM GLUCONATE 47137804136 No Longer Active Kylie Yokum [employer] Active CYANOCOBALAMIN 1000 MCG/ML INJECTION SOLUTION 1 injection ev ruben 2 weeks CYANOCOBALAMIN 41869525117 No Longer Active Kylie Yok um [employer] Active ATENOLOL 25 MG ORAL TABLET 1/2 pill by mouth daily, fo r headaches, blood pressure ATENOLOL 84123737659 Active Kylie Yokum [employer] Active PROPRANOLOL HCL 80 MG ORAL TABLET 1 tab tue. and thur. PROPRANOLOL HCL 48452433964 No Longer Active Hope Benavidez MD PhD A ctive VITAMIN D3 4000 IU 1 tab 3 times daily VITAMIN D3 4000 IU No Longer Active Hope Benavidez MD PhD Active BACTRIM DS 800-160 MG ORAL TABLET 1 pill by mouth twice claudio y, for UTI SULFAMETHOXAZOLE-TRIMETHOPRIM 10474273088 No Longer Active Hope Benavidez MD PhD Active PROLIA 60 MG/ML SUBCUTANEOUS SOLUTION 1 shot every 6 months for osteoprosis DENOSUMAB 08415966630 Active Hope Benavidez MD PhD Active CALCIUM + D + K 750-500-40 MG-UNT-MCG ORAL TABLET 1 tab by m outh twice daily CALCIUM-VITAMIN D-VITAMIN K 48153912947 Active Hope valdez MD PhD Active DAILY VALUE MULTIVITAMIN ORAL TABLET 1 tab by mouth twice daily 201 05/16/14 MULTIPLE VITAMIN 15797641864 Active Hope Benavidez MD PhD Acti ve FISH OIL 306 MG CAPS 1 tab by mouth three times daily OMEGA-3 FATTY ACIDS 76707215378 Active Hope Benavidez MD PhD Active LUTEIN 10 MG ORAL TABLET 1 tab daily LUTEIN 63401051 408 Active Hope Benavidez MD PhD Active TRIAMTERENE-HCTZ 37.5-25 MG ORAL TABLET 1 tab by mouth daily 10/22 TRIAMTERENE-HCTZ 10550355549 Active Kylie Holt [employer] Active CYCLOBENZAPRINE HCL 10 MG ORAL TABLET 1 tablet by mout h three times daily as needed for headaches CYCLOBENZAPRINE HCL 35456248291 No Longer Active Adam Yates MD Active OMEPRAZOLE 20 MG ORAL CAPSULE DELAYED RELEASE 1 tablet by mo [facility] daily for GERD OMEPRAZOLE 31446745825 No Longer Active Adam Yates MD Active ZOFRAN 8 MG ORAL TABLET 1 tab by mouth every 12 hours prn 4 ONDANSETRON HCL 71294762411 No Longer Active Adam Yates MD Active PHENADOZ 25 MG RECTAL SUPPOSITORY 1 every 4 hrs. PRN 2 PROMETHAZINE HCL 23501118130 No Longer Active Adam Yates MD A ctive POTASSIUM CHLORIDE 20 MEQ ORAL PACKET by mouth twice a day prn 2 POTASSIUM CHLORIDE 79690281364 No Longer Active Adam Carpenter MD Active PROMETHAZINE HCL 25 MG ORAL TABLET 1 Q. 4 hr. PRN PROMETHAZINE HCL 82334877589 No Longer Active Adam Yates MD Active INNOPRAN XL 120 MG ORAL CAPSULE EXTENDED RELEASE 24 HO UR Take one by mouth daily PROPRANOLOL HCL SR BEADS 60285132132 No Longer Active Adam Yates MD Active FLAGYL 500 MG ORAL TABLET 1 pill by mouth three times daily, for diarrhea METRONIDAZOLE 90914836579 No Longer Active Hope landers MD PhD Active DYAZIDE 37.5-25 MG ORAL CAPSULE 1 qd TRIA MTERENE-HCTZ 46937853688 No Longer Active Hope Benavidez MD PhD Active PROZAC 20 MG ORAL CAPSULE 1 q d FLUOXETINE HCL 77755183917 No Longer Active Hope Benavidez MD PhD Active SIMVASTATIN 40 MG ORAL TABLET 1 qd SIMVAS TATIN 47906607619 No Longer Active Adam Yates MD Active MELOXICAM 15 MG ORAL TABLET 1 qd MELOXICAM 43845414330 No Longer Active Adam Yates MD Active EXCEDRIN EXTRA STRENGTH 250-250-65 MG ORAL TABLET 1-2 q6h MA N headache [id number] 97594581734 Active Hope Benavidez MD PhD Active FLAGYL 500 MG ORAL TABLET 1 qid METRONIDAZOL E 97048630148 No Longer Active Adam Yates MD Active LEVAQUIN 750 MG ORAL TABLET 1 qd LEVOFLOXAC IN 74195741425 No Longer Active Adam Yates MD Active ADULT ASPIRIN LOW STRENGTH 81 MG ORAL TABLET DISINTEGRATING 1 qd ASPIRIN 08456470654 Active Hope Benavidez MD PhD Active LEVAQUIN 750 MG ORAL TABLET 1 qd LEVAQUIN 750 MG ORAL TABLET 825742 LEVOFLOXACIN Inactive FLAGYL 500 MG ORAL TABLET 1 qid FLAGYL 500 MG ORAL TABLET 557477 METRONIDAZOLE Inactive MELOXICAM 15 MG ORAL TABLET 1 qd MELOXICAM 15 MG ORAL TABLET 118271 MELOXICAM Inactive SIMVASTATIN 40 MG ORAL TABLET 1 qd SIMVASTATIN 40 MG ORAL TABLET 185507 SIMVASTATIN Inactive PROZAC 20 MG ORAL CAPSULE 1 q d PROZAC 20 MG ORAL CAPSULE 730155 FLUOXETINE HCL Inactive DYAZIDE 37.5-25 MG ORAL CAPSULE 1 qd 5 DYAZIDE 37.5-25 MG ORAL CAPSULE 475686 TRIAMTERENE-HCTZ Inactive INNOPRAN XL 120 MG ORAL CAPSULE EXTENDED RELEASE 24 HO UR Take one by mouth daily INNOPRAN XL 120 MG ORAL CAPSULE EXTENDED RELEASE 24 HOUR PROPRANOLOL HCL SR BEADS Inactive PROMETHAZINE HCL 25 MG ORAL TABLET 1 Q. 4 hr. PRN 2013 PROMETHAZINE HCL 25 MG ORAL TABLET 755432 PROMETHAZINE HCL Inactive POTASSIUM CHLORIDE 20 MEQ ORAL PACKET by mouth twice a day prn 2 POTASSIUM CHLORIDE 20 MEQ ORAL PACKET 2475803 POTASSIUM CHLORIDE Inactive PHENADOZ 25 MG RECTAL SUPPOSITORY 1 every 4 hrs. PRN 2 PHENADOZ 25 MG RECTAL SUPPOSITORY 897844 PROMETHAZINE HCL Inactive ZOFRAN 8 MG ORAL TABLET 1 tab by mouth every 12 hours prn 4 ZOFRAN 8 MG ORAL TABLET 178337 ONDANSETRON HCL Inactive OMEPRAZOLE 20 MG ORAL CAPSULE DELAYED RELEASE 1 tablet by mo ut daily for GERD OMEPRAZOLE 20 MG ORAL CAPSULE DELAYED RELEASE 19 8051 OMEPRAZOLE Inactive CYCLOBENZAPRINE HCL 10 MG ORAL TABLET 1 tablet by mout h three times daily as needed for headaches CYCLOBENZAPRINE HCL 10 MG ORAL TABLET 554027 CYCLOBENZAPRINE HCL Inactive VITAMIN D3 4000 IU 1 tab 3 times daily VITAMIN D3 4000 IU Inactive PROPRANOLOL HCL 80 MG ORAL TABLET 1 tab tue. and thur. PROPRANOLOL HCL 80 MG ORAL TABLET 681720 PROPRANOLOL HCL Inacti ve CYANOCOBALAMIN 1000 MCG/ML INJECTION SOLUTION 1 injection ev ruben 2 weeks CYANOCOBALAMIN 1000 MCG/ML INJECTION SOLUTION 30 9594 CYANOCOBALAMIN Inactive MAGNESIUM GLUCONATE 250 MG ORAL TABLET 1 tab tid 23/10/23 MAGNESIUM GLUCONATE 250 MG ORAL TABLET 357506 MAGNESIUM GLUCONATE Inactive LOMOTIL 2.5-0.025 MG ORAL TABLET 1 tab by mouth prn 20 23/10/23 LOMOTIL 2.5-0.025 MG ORAL TABLET 0317301 DIPHENOXYLATE-ATROPINE Inac tive FLORANEX ORAL PACKET 1 pack three times daily, for bowel health FLORANEX ORAL PACKET 83670654248 LACTOBACILLUS Inactive IRON 325 (65 Fe) MG ORAL TABLET 1 every other day 2015 IRON 325 (65 Fe) MG ORAL TABLET 126763 FERROUS SULFATE Inactive FLAGYL 500 MG ORAL TABLET 1 pill by mouth three times daily, for diarrhea FLAGYL 500 MG ORAL TABLET 420533 METRONIDAZOLE I nactive BACTRIM DS 800-160 MG ORAL TABLET 1 pill by mouth twice claudio y, for UTI BACTRIM DS 800-160 MG ORAL TABLET 227285 SULFAMETHOXAZOLE-TRIMETHOPRIM Inactive Advance Directives Directive Description Start [...] ... - Chemistry sodium, serum 141 mmol/L 678-201 2730/01/10 potassium, serum 3.7 mmol/L 3.5-5.2 chloride, serum 101 mmol/L 98-107 carbon dioxide, venous blood 31.0 mmol/L 21.0-32 .0 blood glucose 96 mg/dL 65-95 calcium, serum 9.5 mg/dL 8.5-10.1 urea nitrogen, blood 21 mg/dL 7-18 creatinine, serum 1.40 mg/dL 0.60-1.30 Estimated Glomerular Filtration Rate (calc) 39 (?) mL/min/1.73m2 = OR > 60 mL/min cholesterol, serum 211 mg/dL 748-116 0876/01/10 triglyceride, serum, fasting 77 mg/dL 30-200 HDL [...] 0.82 ng/dL 0.59-1.17 sodium, serum 142 mmol/L 221-691 2639/04/16 carbon dioxide, venous blood 30.0 mmol/L 21.0-32 [...] - Chelle radha sodium, serum 142 mmol/L 688-616 1695/11/02 potassium, serum 3.4 mmol/L 3.5-5.2 chloride, serum [...] 0.59-1.17 Encounters Code Encounter Date Provider Facility CPT-00681 [id number] Vst-Est Level III 09:15[facility] 4 Est[facility] Patient 15:35:24 CAUSTIC PURIFICATION OPERATOR Adam Yates MD [facility] CPT-93691 Level 3 New Patient 12:08:54 CAUSTIC PURIFICATION OPERATOR Adam Yates MD [facility] CPT-74956 [id number] Vst-Est Level IV 19:48:30 CAUSTIC PURIFICATION OPERATOR Tracy Holt [facility] [place] CPT-91711 [id number] Vst-Est Level III 14:29:19 CDT Fiorella Holt [facility] [place] CPT-23451 Level 2 Est. Patient 14:58:26 CDT Kylie boyd [facility] [place] CPT-82120 Level 3 Est. Patient 08:15:24 CAUSTIC PURIFICATION OPERATOR Kylie boyd [facility] [place] CPT-27268 Level 2 Est. Patient 14:27:16 CAUSTIC PURIFICATION OPERATOR Kylie boyd [facility] [place] CPT-76970 Level 3 Est. Patient 17:54:48 CDT Kylie boyd [facility] [place] CPT-64020 Level 3 Est. Patient 16:26:30 CDT Kina blackmon [facility] CPT-22392 Level 3 New Patient 16:22:01 CAUSTIC PURIFICATION OPERATOR Adam Yates MD [facility] CPT-70821 Level 4 Est. Patient 17:00:48 CDT Kylie Lund [facility] [place] CPT-52254 Level 3 Est. Patient 13:15:54 CDT Kylie boyd [facility] CPT-67286 Level 3 Est. Patient 09:10:11 CDT Kylie Lund [facility] [place] CPT-59547 Level 4 Est. Patient 12:08:30 CAUSTIC PURIFICATION OPERATOR Hope cohn MD PhD [facility] CPT-59901 Level 4 Est. Patient 19:08:42 CAUSTIC PURIFICATION OPERATOR Hope cohn MD [facility] CPT-99791 Level 4 Est. Patient 20:04:51 CDT Hope cohn MD PhD [facility] CPT-84309 Level 3 New Patient 01:46:11 CAUSTIC PURIFICATION OPERATOR Hope landers MD PhD [facility] Procedures Code Procedure Name Date Entry Date Standard Desc ription CPT-52224 Bone Density - XRAY USE ONLY 11:51:35 CDT 2 CPT-01774 Free T4 - LAB USE ONLY 11:44:37 CDT CPT-33683 TSH - LAB USE ONLY 11:44:37 CDT CPT-70113 Venipuncture Draw Fee 11:44:37 CDT CPT-J0897 Prolia 60 mg 10:36:55 CDT CPT-35663 Abx/Therapy Injection 10:36:55 CDT CPT-24627 Venipuncture Draw Fee 13:34:11 CDT CPT-G0439 [facility] Annual Wellness Exam 09:15:19 CDT CPT-53036 Postop F/U Visit 15:45:41 CDT CPT-63509 Sono Soft Tissue Head and Neck - XRAY US E ONLY 11:56:06 CAUSTIC PURIFICATION OPERATOR CPT-13160 Abx/Therapy Injection 09:40:08 CAUSTIC PURIFICATION OPERATOR CPT-J0897 Prolia 60 mg 09:40:08 CAUSTIC PURIFICATION OPERATOR CPT-61212 First Vx - Ix admin for Medicare patients 02/08 10:02:45 CDT CPT-30025 Fluzone Quadrivalent Intramuscular Suspe nsion 0.5 ML 10:02:45 CDT CPT-28743 Magnesium - LAB USE ONLY 09:41:00 CDT 12/09 CPT-53478 Renal Panel - LAB USE ONLY 09:41:00 CDT 201 09/17/01 CPT-63914 Venipuncture Draw Fee 09:41:00 CDT CPT-00133 Calcium - LAB USE ONLY 17:25:11 CDT CPT-J0897 Prolia 60 mg 15:10:59 CDT CPT-26533 Abx/Therapy Injection 15:10:59 CDT CPT-G0439 Subsequent Annual Wellness Exam 14:29:19 CDT CPT-51452 Venipuncture Draw Fee 10:59:04 CDT CPT-49589 CMP - LAB USE ONLY 10:59:04 CDT CPT-28995 CBC with Diff - LAB USE ONLY 10:59:03 CDT 2 CPT-J0897 Prolia 60 mg 15:46:54 CAUSTIC PURIFICATION OPERATOR CPT-22689 Abx/Therapy Injection 15:46:54 CAUSTIC PURIFICATION OPERATOR CPT-01876 Microalbumin - LAB USE ONLY 09:41:32 CAUSTIC PURIFICATION OPERATOR 20 23/01/15 CPT-87395 Free T4 - LAB USE ONLY 09:41:32 CAUSTIC PURIFICATION OPERATOR CPT-30585 TSH - LAB USE ONLY 09:41:32 CAUSTIC PURIFICATION OPERATOR CPT-40798 BMP - LAB USE ONLY 09:41:32 CAUSTIC PURIFICATION OPERATOR CPT-64052 Venipuncture Draw Fee 09:41:32 CAUSTIC PURIFICATION OPERATOR CPT-95780 First Vx - Ix admin for Medicare patients 11:19:30 CDT CPT-39370 Fluzone High-Dose Intramuscular Suspension 12/07 11:19:30 CDT CPT-J0897 Prolia 60 mg 14:55:42 CDT CPT-39195 Abx/Therapy Injection 14:55:42 CDT CPT-16574 Bone Density - XRAY USE ONLY 10:27:12 CDT 2 CPT-G0439 Subsequent Annual Wellness Exam 17:54:53 CDT CPT-51898 Foot, left, comp min 3V - XRAY USE ONLY 12:22:49 CDT CPT-G0009 Administration of Pneumococcal Vaccine 3 12:18:00 CDT CPT-68953 Pneumovax 23 Injection Injectable 25 MCG /0.5ML 12:18:00 CDT CPT-J0897 Prolia 60 mg 14:14:16 CAUSTIC PURIFICATION OPERATOR CPT-71629 Abx/Therapy Injection 14:14:15 CAUSTIC PURIFICATION OPERATOR CPT-28591 Lipid - LAB USE ONLY 10:01:52 CAUSTIC PURIFICATION OPERATOR 2 CPT-38130 Calcium - LAB USE ONLY 10:01:51 CAUSTIC PURIFICATION OPERATOR CPT-59329 Venipuncture Draw Fee 10:01:51 CAUSTIC PURIFICATION OPERATOR CPT-LR Lesion Removal 16:22:01 CAUSTIC PURIFICATION OPERATOR CPT-66100 TSH - LAB USE ONLY 14:26:02 CDT CPT-47431 CMP - LAB USE ONLY 14:26:01 CDT CPT-42503 CBC with Diff - LAB USE ONLY 14:26:01 CDT 2 CPT-90210 Venipuncture Draw Fee 14:26:01 CDT CPT-37945 First Vx - Ix admin for Medicare patients 13:27:08 CDT CPT-88274 Fluzone High-Dose Intramuscular Suspension 11/26 13:27:08 CDT CPT-G0438 Initial Annual Wellness Exam 14:19:57 CD T CPT-G0009 Administration of Pneumococcal Vaccine 9 11:36:25 CDT CPT-30821 Prevnar 13 Intramuscular Suspension 1 1:36:25 CDT CPT-31417 Prevnar 13 Intramuscular Suspension 1 0:40:58 CDT CPT-J0897 Prolia 60 mg 10:37:16 CDT CPT-27160 Abx/Therapy Injection 10:37:16 CDT CPT-J0897 Prolia 60 mg 16:09:34 CAUSTIC PURIFICATION OPERATOR CPT-J0897 Prolia 60 mg 11:10:35 CAUSTIC PURIFICATION OPERATOR CPT-21499 Abx/Therapy Injection 11:10:35 CAUSTIC PURIFICATION OPERATOR CPT-000 Give Appropriate Flu Vaccine 17:01:15 CAUSTIC PURIFICATION OPERATOR 2 CPT-93289 Fluzone High Dose (65+) 15:03:08 CAUSTIC PURIFICATION OPERATOR 02/15 CPT-63462 Immunization Single Admin 15:03:08 CAUSTIC PURIFICATION OPERATOR 2014 CPT-OV Office Visit 15:58:06 CDT CPT-J0897 Prolia 60 mg 08:45:38 CDT CPT-14597 Abx/Therapy Injection 08:45:38 CDT CPT-J3420 Vitamin B12 1000mcg (Cyanocobalamin) 09:26:20 CAUSTIC PURIFICATION OPERATOR CPT-52815 Abx/Therapy Injection 09:26:20 CAUSTIC PURIFICATION OPERATOR CPT-J3420 Vitamin B12 1000mcg (Cyanocobalamin) 09:44:40 CAUSTIC PURIFICATION OPERATOR CPT-55197 Abx/Therapy Injection 09:44:40 CAUSTIC PURIFICATION OPERATOR CPT-J3420 Vitamin B12 1000mcg (Cyanocobalamin) 09:15:54 CAUSTIC PURIFICATION OPERATOR CPT-72720 Abx/Therapy Injection 09:15:54 CAUSTIC PURIFICATION OPERATOR CPT-J3420 Vitamin B12 1000mcg (Cyanocobalamin) 09:46:44 CAUSTIC PURIFICATION OPERATOR CPT-30677 Abx/Therapy Injection 09:46:44 CAUSTIC PURIFICATION OPERATOR CPT-J3420 Vitamin B12 1000mcg (Cyanocobalamin) 09:47:34 CAUSTIC PURIFICATION OPERATOR CPT-95871 Abx/Therapy Injection 09:47:34 CAUSTIC PURIFICATION OPERATOR CPT-J3420 Vitamin B12 1000mcg (Cyanocobalamin) 14:35:50 CAUSTIC PURIFICATION OPERATOR CPT-J3420 Vitamin B12 1000mcg (Cyanocobalamin) 09:25:05 CAUSTIC PURIFICATION OPERATOR CPT-32749 Abx/Therapy Injection 09:25:05 CAUSTIC PURIFICATION OPERATOR CPT-G0008 Administration of Influenza Virus Vaccine 13:36:47 CDT CPT-97913 Fluzone High-Dose Intramuscular Suspension 11/15 13:36:47 CDT CPT-J0897 Prolia 60 mg 08:50:41 CDT CPT-80693 Abx/Therapy Injection 08:50:41 CDT CPT-39936 Bone Density 12:06:12 CDT CPT-67792 Bone Density 08:54:40 CDT CPT-OV Office Visit 15:37:02 CDT CPT-88088 Postop F/U Visit 15:47:49 CDT CPT-30738 Postop F/U Visit 15:21:02 CDT CPT-[facility] Transitional Care Mgmt-High 07:52:27 CDT 20 20/06/01 CPT-69875 Venipuncture Draw Fee 13:51:18 CDT CPT-18826 Venipuncture Draw Fee 10:14:55 CAUSTIC PURIFICATION OPERATOR CPT-38929 Venipuncture Draw Fee 13:39:45 CAUSTIC PURIFICATION OPERATOR CPT-OV Office Visit 15:11:22 CAUSTIC PURIFICATION OPERATOR CPT-58651 Venipuncture Draw Fee 09:20:49 CAUSTIC PURIFICATION OPERATOR CPT-54330 Venipuncture Draw Fee 16:52:15 CAUSTIC PURIFICATION OPERATOR CPT-39268 Venipuncture Draw Fee 10:37:24 CAUSTIC PURIFICATION OPERATOR CPT-15283 Venipuncture Draw Fee 08:21:21 CAUSTIC PURIFICATION OPERATOR CPT-08869 Venipuncture Draw Fee 08:30:20 CAUSTIC PURIFICATION OPERATOR CPT-38190 Venipuncture Draw Fee 14:53:21 CAUSTIC PURIFICATION OPERATOR CPT-55406 Venipuncture Draw Fee 09:40:56 CAUSTIC PURIFICATION OPERATOR CPT-17016 Venipuncture Draw Fee 10:30:47 CAUSTIC PURIFICATION OPERATOR CPT-25755 Venipuncture Draw Fee 10:46:17 CAUSTIC PURIFICATION OPERATOR CPT-57024 Venipuncture Draw Fee 11:12:45 CAUSTIC PURIFICATION OPERATOR CPT-90543 Venipuncture Draw Fee 09:53:33 CAUSTIC PURIFICATION OPERATOR CPT-69439 Venipuncture Draw Fee 11:53:51 CAUSTIC PURIFICATION OPERATOR CPT-11230 Venipuncture Draw Fee 10:33:50 CAUSTIC PURIFICATION OPERATOR CPT-61412 Venipuncture Draw Fee 10:05:01 CAUSTIC PURIFICATION OPERATOR CPT-17919 Venipuncture Draw Fee 14:32:52 CAUSTIC PURIFICATION OPERATOR CPT-48302 Venipuncture Draw Fee 09:46:13 CAUSTIC PURIFICATION OPERATOR CPT-42267 Venipuncture Draw Fee 11:34:27 CAUSTIC PURIFICATION OPERATOR CPT-98129 Venipuncture Draw Fee 13:17:16 CAUSTIC PURIFICATION OPERATOR CPT-63651 Venipuncture Draw Fee 12:05:39 CDT CPT-63808 Venipuncture Draw Fee 12:49:12 CDT CPT-99730 Venipuncture Draw Fee 12:37:18 CDT CPT-89765 Venipuncture Draw Fee 10:57:11 CDT CPT-66159 Venipuncture Draw Fee 13:47:40 CDT CPT-08534 Venipuncture Draw Fee 10:02:17 CDT CPT-28689 TB Tubersol 17:32:32 CDT CPT-OV Office Visit 16:21:53 CDT CPT-OV Office Visit 15:49:22 CDT CPT-OV Office Visit 17:16:31 CDT CPT-OV Office Visit 10:43:31 CDT
--- OUTSIDE RECORDS SUMMARY | 2019-02-09 11:42 | XMS REPORT | Clinical Summary ---
Author Author Renaldo, Florecita Munoz Organization [facility] [employer] Address Unknown Phone Unavailable Allergies, Adverse Reactions, [...] PhD Hyperpotassemia GERD 530.81 Resolved Kylie Yokum CHECK EXAMINER Esophageal reflux Health maintenance exam V70.0 Resolved Adolfo Yates MD Routine general medical examination at a health care facility Anemia 285.9 Resolved Kylie Yanet CHECK EXAMINER Anemia, unspecified Personal history of malignant neoplasm of large intestine V10.05 Active Adam Yates MD Personal history of malignant neoplasm of large intestine Hypomagnesemia 275.2 Resolved Kylie Yanet CHECK EXAMINER Disorders of magnesium metabolism Weakness 780.79 Resolved [...] Sebaceous cyst, scalp 706.2 Resolved Kylie Yokum CHECK EXAMINER Sebaceous cyst Cervical lymphadenopathy, anterior, left 785.6 Resolv ed Kylie Yokum CHECK EXAMINER Enlargement of lymph nodes Need for prophylactic vaccination and inoculation against in fluenza V04.81 Resolved Adam Yates MD Need for prophylactic vaccination and inoculation against influenza Preventive health care V70.0 Resolved Kylie Lundu m CHECK EXAMINER Routine general medical examination at a health care facility Thyroid nodule, left 241.0 Resolved Selena Yates MD Nontoxic uninodular goiter Screening mammogram V76.12 Resolved Kylie Yokum A PRN Other screening mammogram Mandy 706.2 Resolved Kylie Yokum CHECK EXAMINER Sebaceous cyst Colon cancer, ascending 153.6 Resolved Kylie Yok um CHECK EXAMINER Malignant neoplasm of ascending colon Foot pain, left 729.5 Resolved Kylie Yokum CHECK EXAMINER Pain in limb Splinter 919.6 Resolved Kylie Yokum CHECK EXAMINER Superficial foreign body (splinter) of other, multiple, and unspecified sites, without major open wound and without mention of infection Rash 782.1 Resolved Kylie Yokum CHECK EXAMINER Rash and other nonspecific skin eruption Cyst 706.2 Resolved Kylie Yokum CHECK EXAMINER Sebaceous cyst Body Mass Index 23.0-23.9 Adult Refinement 2017 Kylie Yokum CHECK EXAMINER Body Mass Index between 19-24, adult BMI [...] RIGHT LOWER QUADRANT ICD-789.03 Inactive Kina Joshua CHECK EXAMINER ADENOCARCINOMA, COLON, 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 Dick Yates MD ABDOMINAL PAIN, GENERALIZED ICD-789.07 Inactive Hope Benavidez MD PhD FEVER UNSPECIFIED ICD-780.60 Inactive Hope cohn MD PhD UNSPECIFIED VENOUS INSUFFICIENCY ICD-459.81 Elda ctive Adam Yates MD ADENOCARCINOMA, 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 Inac tive Hope Benavidez MD PhD Hyperkalemia ICD-276.7 Inactive Hope Benavidez MD PhD GERD ICD-530.81 Inactive Kylieshubham Holt CHECK EXAMINER 2015 Health maintenance exam ICD-V70.0 Bam Yates MD Anemia ICD-285.9 Inactive Kylieshubham Holt CHECK EXAMINER 07/24 Hypomagnesemia ICD-275.2 Inactive Kylie Holt CHECK EXAMINER Weakness ICD-780.79 Inactive Hope Benavidez MD P [...] cyst, scalp ICD-706.2 Inactive Tracy hi Yokum CHECK EXAMINER Cervical lymphadenopathy, anterior, left ICD-785.6 Inactive Kylie Yokum CHECK EXAMINER Need for prophylactic vaccination and inoculation against in fluenza ICD-V04.81 Inactive Adam Yates MD Preventive health care ICD-V70.0 Inactive Ka thi Yokum CHECK EXAMINER Thyroid nodule, left ICD-241.0 Inactive Selena Yates MD Screening mammogram ICD-V76.12 Inactive Kylie Yokum CHECK EXAMINER Mandy ICD-706.2 Inactive Kylie Yokum CHECK EXAMINER 07/20 Colon cancer, ascending ICD-153.6 Inactive K athi Yokum CHECK EXAMINER Foot pain, left ICD-729.5 Inactive Klyie Yokum CHECK EXAMINER Splinter ICD-919.6 Inactive Kylie Yokum CHECK EXAMINER 2017 Rash ICD-782.1 Inactive Kylie Yokum CHECK EXAMINER 07/25 Cyst ICD-706.2 Inactive Kylie Yokum CHECK EXAMINER 08/11 Unspecified fall, initial encounter ICD-E888.9 Inactive Kylie Yokum CHECK EXAMINER Eye pain, left ICD-379.91 Inactive Kylie Holt [...] other medications for hypothyroidism. LEVOTHYROX INE SODIUM 95738871064 Active Kylie Holt APRN Active VOLTAREN 1 % TRANSDERMAL GEL apply 2 grams q 6-8 hour to left arm as needed for pain DICLOFENAC SODIUM 91456195808 Active Kylie Holt APR N Active IMODIUM A-D 2 MG ORAL TABLET 1 tablet twice a day LOPERAMIDE HCL 89120103165 Active Kylie Holt APRN Active COQ10 100 MG ORAL CAPSULE 1 daily COENZYME Q10 109284 10690 Active LETY [place] Active VITAMIN D3 2000 UNIT ORAL CAPSULE Melaleuca-One daily CHOLECALCIFEROL 43534107976 Active Kylie Holt APRN Active PROBIOTIC DAILY ORAL CAPSULE Take one daily PROBIO TIC PRODUCT 07854960289 Active Kylie Holt APRN Active IRON 325 (65 Fe) MG ORAL TABLET 1 every other day FERROUS SULFATE 05064009742 No Longer Active Kylie Yokum CHECK EXAMINER Active FLORANEX ORAL PACKET 1 pack three times daily, for bowel health LACTOBACILLUS 29219581887 No Longer Active Kylie Yokum CHECK EXAMINER Active LOMOTIL 2.5-0.025 MG ORAL TABLET 1 tab by mouth prn 20 23/10/23 DIPHENOXYLATE-ATROPINE 23468229326 No Longer Active Kylie Yokum CHECK EXAMINER Active MAGNESIUM GLUCONATE 250 MG ORAL TABLET 1 tab tid 23/10/23 MAGNESIUM GLUCONATE 71916317969 No Longer Active Kylie Yokum CHECK EXAMINER Active CYANOCOBALAMIN 1000 MCG/ML INJECTION SOLUTION 1 injection ev ruben 2 weeks CYANOCOBALAMIN 21211464991 No Longer Active Kylie Yok um CHECK EXAMINER Active ATENOLOL 25 MG ORAL TABLET 1/2 pill by mouth daily, fo r headaches, blood pressure ATENOLOL 00302748076 Active Kylie Yokum CHECK EXAMINER Active PROPRANOLOL HCL 80 MG ORAL TABLET 1 tab tue. and thur. PROPRANOLOL HCL 77745541683 No Longer Active Hope Benavidez MD PhD A ctive VITAMIN D3 4000 IU 1 tab 3 times daily VITAMIN D3 4000 IU No Longer Active Hope Benavidez MD PhD Active BACTRIM DS 800-160 MG ORAL TABLET 1 pill by mouth twice claudio y, for UTI SULFAMETHOXAZOLE-TRIMETHOPRIM 41811372420 No Longer Active Hope Benavidez MD PhD Active PROLIA 60 MG/ML SUBCUTANEOUS SOLUTION 1 shot every 6 months for osteoprosis DENOSUMAB 95603858309 Active Hope Benavidez MD PhD Active CALCIUM + D + K 750-500-40 MG-UNT-MCG ORAL TABLET 1 tab by m outh twice daily CALCIUM-VITAMIN D-VITAMIN K 69585029150 Active Hope valdez MD PhD Active DAILY VALUE MULTIVITAMIN ORAL TABLET 1 tab by mouth twice daily 201 05/16/14 MULTIPLE VITAMIN 90105049884 Active Hope Benavidez MD PhD Acti ve FISH OIL 306 MG CAPS 1 tab by mouth three times daily OMEGA-3 FATTY ACIDS 50800343562 Active Hope Benavidez MD PhD Active LUTEIN 10 MG ORAL TABLET 1 tab daily LUTEIN 40540613 408 Active Hope Benavidez MD PhD Active TRIAMTERENE-HCTZ 37.5-25 MG ORAL TABLET 1 tab by mouth daily 10/22 TRIAMTERENE-HCTZ 79139818224 Active Kylie Holt CHECK EXAMINER Active CYCLOBENZAPRINE HCL 10 MG ORAL TABLET 1 tablet by mout h three times daily as needed for headaches CYCLOBENZAPRINE HCL 55507394104 No Longer Active Adam Yates MD Active OMEPRAZOLE 20 MG ORAL CAPSULE DELAYED RELEASE 1 tablet by mo [facility] daily for GERD OMEPRAZOLE 06326986280 No Longer Active Adam Yates MD Active ZOFRAN 8 MG ORAL TABLET 1 tab by mouth every 12 hours prn 4 ONDANSETRON HCL 65497602910 No Longer Active Adma Yates MD Active PHENADOZ 25 MG RECTAL SUPPOSITORY 1 every 4 hrs. PRN 2 PROMETHAZINE HCL 21291991402 No Longer Active Adam Yates MD A ctive POTASSIUM CHLORIDE 20 MEQ ORAL PACKET by mouth twice a day prn 2 POTASSIUM CHLORIDE 64126745924 No Longer Active Adam Carpenter MD Active PROMETHAZINE HCL 25 MG ORAL TABLET 1 Q. 4 hr. PRN PROMETHAZINE HCL 23649477963 No Longer Active Adam Yates MD Active INNOPRAN XL 120 MG ORAL CAPSULE EXTENDED RELEASE 24 HO UR Take one by mouth daily PROPRANOLOL HCL SR BEADS 69392127524 No Longer Active Adam Yates MD Active FLAGYL 500 MG ORAL TABLET 1 pill by mouth three times daily, for diarrhea METRONIDAZOLE 25545715421 No Longer Active Hope landers MD PhD Active DYAZIDE 37.5-25 MG ORAL CAPSULE 1 qd TRIA MTERENE-HCTZ 85314979817 No Longer Active Hope Benavidez MD PhD Active PROZAC 20 MG ORAL CAPSULE 1 q d FLUOXETINE HCL 09699431605 No Longer Active Hope Benavidez MD PhD Active SIMVASTATIN 40 MG ORAL TABLET 1 qd SIMVAS TATIN 61282543760 No Longer Active Adam Yates MD Active MELOXICAM 15 MG ORAL TABLET 1 qd MELOXICAM 85987400010 No Longer Active Adam Yates MD Active EXCEDRIN EXTRA STRENGTH 250-250-65 MG ORAL TABLET 1-2 q6h MO N headache BOYDIGH-[id number] 84016278152 Active Hope Benavidez MD PhD Active FLAGYL 500 MG ORAL TABLET 1 qid METRONIDAZOL E 33820774287 No Longer Active Adam Yates MD Active LEVAQUIN 750 MG ORAL TABLET 1 qd LEVOFLOXAC IN 83619487506 No Longer Active Adam Yates MD Active ADULT ASPIRIN LOW STRENGTH 81 MG ORAL TABLET DISINTEGRATING 1 qd ASPIRIN 45504337304 Active Hope Benavidez MD PhD Active LEVAQUIN 750 MG ORAL TABLET 1 qd LEVAQUIN 750 MG ORAL TABLET 991847 LEVOFLOXACIN Inactive FLAGYL 500 MG ORAL TABLET 1 qid FLAGYL 500 MG ORAL TABLET 414084 METRONIDAZOLE Inactive MELOXICAM 15 MG ORAL TABLET 1 qd MELOXICAM 15 MG ORAL TABLET 445593 MELOXICAM Inactive SIMVASTATIN 40 MG ORAL TABLET 1 qd SIMVASTATIN 40 MG ORAL TABLET 687692 SIMVASTATIN Inactive PROZAC 20 MG ORAL CAPSULE 1 q d PROZAC 20 MG ORAL CAPSULE 490466 FLUOXETINE HCL Inactive DYAZIDE 37.5-25 MG ORAL CAPSULE 1 qd 5 DYAZIDE 37.5-25 MG ORAL CAPSULE 515297 TRIAMTERENE-HCTZ Inactive INNOPRAN XL 120 MG ORAL CAPSULE EXTENDED RELEASE 24 HO UR Take one by mouth daily INNOPRAN XL 120 MG ORAL CAPSULE EXTENDED RELEASE 24 HOUR PROPRANOLOL HCL SR BEADS Inactive PROMETHAZINE HCL 25 MG ORAL TABLET 1 Q. 4 hr. PRN 2013 PROMETHAZINE HCL 25 MG ORAL TABLET 828885 PROMETHAZINE HCL Inactive POTASSIUM CHLORIDE 20 MEQ ORAL PACKET by mouth twice a day prn 2 POTASSIUM CHLORIDE 20 MEQ ORAL PACKET 3062087 POTASSIUM CHLORIDE Inactive PHENADOZ 25 MG RECTAL SUPPOSITORY 1 every 4 hrs. PRN 2 PHENADOZ 25 MG RECTAL SUPPOSITORY 067607 PROMETHAZINE HCL Inactive ZOFRAN 8 MG ORAL TABLET 1 tab by mouth every 12 hours prn 4 ZOFRAN 8 MG ORAL TABLET 509034 ONDANSETRON HCL Inactive OMEPRAZOLE 20 MG ORAL CAPSULE DELAYED RELEASE 1 tablet by mo ut daily for GERD OMEPRAZOLE 20 MG ORAL CAPSULE DELAYED RELEASE 19 8051 OMEPRAZOLE Inactive CYCLOBENZAPRINE HCL 10 MG ORAL TABLET 1 tablet by mout h three times daily as needed for headaches CYCLOBENZAPRINE HCL 10 MG ORAL TABLET 583744 CYCLOBENZAPRINE HCL Inactive VITAMIN D3 4000 IU 1 tab 3 times daily VITAMIN D3 4000 IU Inactive PROPRANOLOL HCL 80 MG ORAL TABLET 1 tab tue. and thur. PROPRANOLOL HCL 80 MG ORAL TABLET 624932 PROPRANOLOL HCL Inacti ve CYANOCOBALAMIN 1000 MCG/ML INJECTION SOLUTION 1 injection ev ruben 2 weeks CYANOCOBALAMIN 1000 MCG/ML INJECTION SOLUTION 30 9594 CYANOCOBALAMIN Inactive MAGNESIUM GLUCONATE 250 MG ORAL TABLET 1 tab tid 23/10/23 MAGNESIUM GLUCONATE 250 MG ORAL TABLET 380387 MAGNESIUM GLUCONATE Inactive LOMOTIL 2.5-0.025 MG ORAL TABLET 1 tab by mouth prn 20 23/10/23 LOMOTIL 2.5-0.025 MG ORAL TABLET 9408683 DIPHENOXYLATE-ATROPINE Inac tive FLORANEX ORAL PACKET 1 pack three times daily, for bowel health FLORANEX ORAL PACKET 97892794225 LACTOBACILLUS Inactive IRON 325 (65 Fe) MG ORAL TABLET 1 every other day 2015 IRON 325 (65 Fe) MG ORAL TABLET 899369 FERROUS SULFATE Inactive FLAGYL 500 MG ORAL TABLET 1 pill by mouth three times daily, for diarrhea FLAGYL 500 MG ORAL TABLET 070554 METRONIDAZOLE I nactive BACTRIM DS 800-160 MG ORAL TABLET 1 pill by mouth twice claudio y, for UTI BACTRIM DS 800-160 MG ORAL TABLET 498484 SULFAMETHOXAZOLE-TRIMETHOPRIM Inactive Advance Directives Directive Description Start [...] ... - Chemistry sodium, serum 141 mmol/L 886-508 7795/01/10 potassium, serum 3.7 mmol/L 3.5-5.2 chloride, serum 101 mmol/L 98-107 carbon dioxide, venous blood 31.0 mmol/L 21.0-32 .0 blood glucose 96 mg/dL 65-95 calcium, serum 9.5 mg/dL 8.5-10.1 urea nitrogen, blood 21 mg/dL 7-18 creatinine, serum 1.40 mg/dL 0.60-1.30 Estimated Glomerular Filtration Rate (calc) 39 (?) mL/min/1.73m2 = OR > 60 mL/min cholesterol, serum 211 mg/dL 336-398 2192/01/10 triglyceride, serum, fasting 77 mg/dL 30-200 HDL [...] 0.82 ng/dL 0.59-1.17 sodium, serum 142 mmol/L 690-423 7995/04/16 carbon dioxide, venous blood 30.0 mmol/L 21.0-32 [...] - Chelle radha sodium, serum 142 mmol/L 323-285 4191/11/02 potassium, serum 3.4 mmol/L 3.5-5.2 chloride, serum [...] 0.59-1.17 Encounters Code Encounter Date Provider Facility CPT-83629 [id number] Vst-Est Level III 09:15:[facility] Level 4 Est. Patient 15:35:24 SPARMAKER Adam Yates MD [facility] CPT-11485 Level 3 New Patient 12:08:54 SPARMAKER Adam Yates MD [facility] CPT-27744 85398-Qis Vst-Est Level IV 19:48:30 SPARMAKER Tracy Holt [facility] CPT-13360 [id number] Vst-Est Level III 14:29:19 CDT Fiorella Holt [facility] CPT-22351 Level 2 Est. Patient 14:58:26 CDT Kylie boyd [facility] CPT-30768 Level 3 Est. Patient 08:15:24 SPARMAKER Kylie boyd [facility] CPT-83968 Level 2 Est. Patient 14:27:16 SPARMAKER Kylie boyd [facility] CPT-66299 Level 3 Est. Patient 17:54:48 CDT Kylie boyd [facility] CPT-01009 Level 3 Est. Patient 16:26:30 CDT Kina blackmon [facility] CPT-28091 Level 3 New Patient 16:22:01 SPARMAKER Adam Yates MD [facility] CPT-07322 Level 4 Est. Patient 17:00:48 CDT Kylie Lund [facility] CPT-56232 Level 3 Est. Patient 13:15:54 CDT Kylie boyd [facility] CPT-49394 Level 3 Est. Patient 09:10:11 CDT Kylie Lund [facility] CPT-12936 Level 4 Est. Patient 12:08:30 SPARMAKER Hope cohn MD PhD [facility] CPT-21166 Level 4 Est. Patient 19:08:42 SPARMAKER Hope cohn MD PhD [facility] CPT-50064 Level 4 Est. Patient 20:04:51 CDT Hope cohn MD PhD [facility] CPT-54611 Level 3 New Patient 01:46:11 SPARMAKER Hope landers MD PhD [facility] Procedures Code Procedure Name Date Entry Date Standard Desc ription CPT-39770 Free T4 - LAB USE ONLY 11:44:37 CDT CPT-61264 TSH - LAB USE ONLY 11:44:37 CDT CPT-88418 Venipuncture Draw Fee 11:44:37 CDT CPT-J0897 Prolia 60 mg 10:36:55 CDT CPT-37872 Abx/Therapy Injection 10:36:55 CDT CPT-39932 Venipuncture Draw Fee 13:34:11 CDT CPT-G0439 Subsequent Annual Wellness Exam 09:15:19 CDT CPT-16063 Postop F/U Visit 15:45:41 CDT CPT-14629 Sono Soft Tissue Head and Neck - XRAY US E ONLY 11:56:06 SPARMAKER CPT-01118 Abx/Therapy Injection 09:40:08 SPARMAKER CPT-J0897 Prolia 60 mg 09:40:08 SPARMAKER CPT-28786 First Vx - Ix admin for Medicare patients 02/08 10:02:45 CDT CPT-79255 Fluzone Quadrivalent Intramuscular Suspe nsion 0.5 ML 10:02:45 CDT CPT-07681 Magnesium - LAB USE ONLY 09:41:00 CDT 12/09 CPT-14986 Renal Panel - LAB USE ONLY 09:41:00 CDT 201 09/17/01 CPT-47172 Venipuncture Draw Fee 09:41:00 CDT CPT-41349 Calcium - LAB USE ONLY 17:25:11 CDT CPT-J0897 Prolia 60 mg 15:10:59 CDT CPT-51340 Abx/Therapy Injection 15:10:59 CDT CPT-G0439 Subsequent Annual Wellness Exam 14:29:19 CDT CPT-12253 Venipuncture Draw Fee 10:59:04 CDT CPT-96058 CMP - LAB USE ONLY 10:59:04 CDT CPT-52415 CBC with Diff - LAB USE ONLY 10:59:03 CDT 2 CPT-J0897 Prolia 60 mg 15:46:54 SPARMAKER CPT-99866 Abx/Therapy Injection 15:46:54 SPARMAKER CPT-35867 Microalbumin - LAB USE ONLY 09:41:32 SPARMAKER 20 23/01/15 CPT-87381 Free T4 - LAB USE ONLY 09:41:32 SPARMAKER CPT-99725 TSH - LAB USE ONLY 09:41:32 SPARMAKER CPT-80579 BMP - LAB USE ONLY 09:41:32 SPARMAKER CPT-08741 Venipuncture Draw Fee 09:41:32 SPARMAKER CPT-16230 First Vx - Ix admin for Medicare patients 11:19:30 CDT CPT-32746 Fluzone High-Dose Intramuscular Suspension 12/07 11:19:30 CDT CPT-J0897 Prolia 60 mg 14:55:42 CDT CPT-69757 Abx/Therapy Injection 14:55:42 CDT CPT-15823 Bone Density - XRAY USE ONLY 10:27:12 CDT 2 CPT-G0439 Subsequent Annual Wellness Exam 17:54:53 CDT CPT-71640 Foot, left, comp min 3V - XRAY USE ONLY 12:22:49 CDT CPT-G0009 Administration of Pneumococcal Vaccine 3 12:18:00 CDT CPT-71270 Pneumovax 23 Injection Injectable 25 MCG /0.5ML 12:18:00 CDT CPT-J0897 Prolia 60 mg 14:14:16 SPARMAKER CPT-77879 Abx/Therapy Injection 14:14:15 SPARMAKER CPT-13498 Lipid - LAB USE ONLY 10:01:52 SPARMAKER 2 CPT-14489 Calcium - LAB USE ONLY 10:01:51 SPARMAKER CPT-19008 Venipuncture Draw Fee 10:01:51 SPARMAKER CPT-LR Lesion Removal 16:22:01 SPARMAKER CPT-67102 TSH - LAB USE ONLY 14:26:02 CDT CPT-42932 CMP - LAB USE ONLY 14:26:01 CDT CPT-35855 CBC with Diff - LAB USE ONLY 14:26:01 CDT 2 CPT-18021 Venipuncture Draw Fee 14:26:01 CDT CPT-79471 First Vx - Ix admin for Medicare patients 13:27:08 CDT CPT-20499 Fluzone High-Dose Intramuscular Suspension 11/26 13:27:08 CDT CPT-G0438 Initial Annual Wellness Exam 14:19:57 CD T CPT-G0009 Administration of Pneumococcal Vaccine 9 11:36:25 CDT CPT-99344 Prevnar 13 Intramuscular Suspension 1 1:36:25 CDT CPT-16489 Prevnar 13 Intramuscular Suspension 1 0:40:58 CDT CPT-J0897 Prolia 60 mg 10:37:16 CDT CPT-60221 Abx/Therapy Injection 10:37:16 CDT CPT-J0897 Prolia 60 mg 16:09:34 SPARMAKER CPT-J0897 Prolia 60 mg 11:10:35 SPARMAKER CPT-92372 Abx/Therapy Injection 11:10:35 SPARMAKER CPT-000 Give Appropriate Flu Vaccine 17:01:15 SPARMAKER 2 CPT-17433 Fluzone High Dose (65+) 15:03:08 SPARMAKER 02/15 CPT-10700 Immunization Single Admin 15:03:08 SPARMAKER 2014 CPT-OV Office Visit 15:58:06 CDT CPT-J0897 Prolia 60 mg 08:45:38 CDT CPT-83150 Abx/Therapy Injection 08:45:38 CDT CPT-J3420 Vitamin B12 1000mcg (Cyanocobalamin) 09:26:20 SPARMAKER CPT-41208 Abx/Therapy Injection 09:26:20 SPARMAKER CPT-J3420 Vitamin B12 1000mcg (Cyanocobalamin) 09:44:40 SPARMAKER CPT-01645 Abx/Therapy Injection 09:44:40 SPARMAKER CPT-J3420 Vitamin B12 1000mcg (Cyanocobalamin) 09:15:54 SPARMAKER CPT-92572 Abx/Therapy Injection 09:15:54 SPARMAKER CPT-J3420 Vitamin B12 1000mcg (Cyanocobalamin) 09:46:44 SPARMAKER CPT-44246 Abx/Therapy Injection 09:46:44 SPARMAKER CPT-J3420 Vitamin B12 1000mcg (Cyanocobalamin) 09:47:34 SPARMAKER CPT-36946 Abx/Therapy Injection 09:47:34 SPARMAKER CPT-J3420 Vitamin B12 1000mcg (Cyanocobalamin) 14:35:50 SPARMAKER CPT-J3420 Vitamin B12 1000mcg (Cyanocobalamin) 09:25:05 SPARMAKER CPT-51373 Abx/Therapy Injection 09:25:05 SPARMAKER CPT-G0008 Administration of Influenza Virus Vaccine 13:36:47 CDT CPT-41966 Fluzone High-Dose Intramuscular Suspension 11/15 13:36:47 CDT CPT-J0897 Prolia 60 mg 08:50:41 CDT CPT-22973 Abx/Therapy Injection 08:50:41 CDT CPT-47377 Bone Density 12:06:12 CDT CPT-43389 Bone Density 08:54:40 CDT CPT-OV Office Visit 15:37:02 CDT CPT-38970 Postop F/U Visit 15:47:49 CDT CPT-70705 Postop F/U Visit 15:21:02 CDT CPT-[facility] Transitional Care Mgmt-High 07:52:27 CDT 20 20/06/01 CPT-98695 Venipuncture Draw Fee 13:51:18 CDT CPT-79693 Venipuncture Draw Fee 10:14:55 SPARMAKER CPT-78267 Venipuncture Draw Fee 13:39:45 SPARMAKER CPT-OV Office Visit 15:11:22 SPARMAKER CPT-27501 Venipuncture Draw Fee 09:20:49 SPARMAKER CPT-35340 Venipuncture Draw Fee 16:52:15 SPARMAKER CPT-08591 Venipuncture Draw Fee 10:37:24 SPARMAKER CPT-60359 Venipuncture Draw Fee 08:21:21 SPARMAKER CPT-27668 Venipuncture Draw Fee 08:30:20 SPARMAKER CPT-11267 Venipuncture Draw Fee 14:53:21 SPARMAKER CPT-19884 Venipuncture Draw Fee 09:40:56 SPARMAKER CPT-80477 Venipuncture Draw Fee 10:30:47 SPARMAKER CPT-71735 Venipuncture Draw Fee 10:46:17 SPARMAKER CPT-91368 Venipuncture Draw Fee 11:12:45 SPARMAKER CPT-08854 Venipuncture Draw Fee 09:53:33 SPARMAKER CPT-73734 Venipuncture Draw Fee 11:53:51 SPARMAKER CPT-88047 Venipuncture Draw Fee 10:33:50 SPARMAKER CPT-71399 Venipuncture Draw Fee 10:05:01 SPARMAKER CPT-63174 Venipuncture Draw Fee 14:32:52 SPARMAKER CPT-38969 Venipuncture Draw Fee 09:46:13 SPARMAKER CPT-88513 Venipuncture Draw Fee 11:34:27 SPARMAKER CPT-33632 Venipuncture Draw Fee 13:17:16 SPARMAKER CPT-43785 Venipuncture Draw Fee 12:05:39 CDT CPT-53673 Venipuncture Draw Fee 12:49:12 CDT CPT-82215 Venipuncture Draw Fee 12:37:18 CDT CPT-87640 Venipuncture Draw Fee 10:57:11 CDT CPT-62200 Venipuncture Draw Fee 13:47:40 CDT CPT-59978 Venipuncture Draw Fee 10:02:17 CDT CPT-42208 TB Tubersol 17:32:32 CDT CPT-OV Office Visit 16:21:53 CDT CPT-OV Office Visit 15:49:22 CDT CPT-OV Office Visit 17:16:31 CDT CPT-OV Office Visit 10:43:31 CDT
--- OUTSIDE RECORDS SUMMARY | 2019-02-09 11:42 | XMS REPORT | Clinical Summary ---
Author Author Renaldo, Florecita Munoz Organization [facility] Address Unknown Phone Unavailable Allergies, Adverse Reactions, [...] PhD Hyperpotassemia GERD 530.81 Resolved Kylie Yokum WOOD BARREL RECONDITIONER Esophageal reflux Health maintenance exam V70.0 Resolved Adolfo Yates MD Routine general medical examination at a health care facility Anemia 285.9 Resolved Kylie Holt WOOD [employer]REL RECONDITIONER Anemia, unspecified Personal history of malignant neoplasm of large intestine V10.05 Active Adam Yates MD Personal history of malignant neoplasm of large intestine Hypomagnesemia 275.2 Resolved Kylie Holt WOOD BARREL RECONDITIONER Disorders of magnesium metabolism Weakness 780.79 Resolved [...] Sebaceous cyst, scalp 706.2 Resolved Kylie Yokum WOOD [employer]REL RECONDITIONER Sebaceous cyst Cervical lymphadenopathy, anterior, left 785.6 Resolv ed Kylie Yokum WOOD BARREL RECONDITIONER Enlargement of lymph nodes Need for prophylactic vaccination and inoculation against in fluenza V04.81 Resolved Adam Yates MD Need for prophylactic vaccination and inoculation against influenza Preventive health care V70.0 Resolved Kylie Lundu m WOOD BARREL RECONDITIONER Routine general medical examination at a health care facility Thyroid nodule, left 241.0 Resolved Selena Yates MD Nontoxic uninodular goiter Screening mammogram V76.12 Resolved Kylie Yokum A PRN Other screening mammogram Mandy 706.2 Resolved Kylie Yokum WOOD [employer]REL RECONDITIONER Sebaceous cyst Colon cancer, ascending 153.6 Resolved Kylie Yok um WOOD BARREL RECONDITIONER Malignant neoplasm of ascending colon Foot pain, left 729.5 Resolved Kylie Yokum WOOD BARREL RECONDITIONER Pain in limb Splinter 919.6 Resolved Kylie Yokum WOOD BARREL RECONDITIONER Superficial foreign body (splinter) of other, multiple, and unspecified sites, without major open wound and without mention of infection Rash 782.1 Resolved Kylie Yokum WOOD BARREL RECONDITIONER Rash and other nonspecific skin eruption Cyst 706.2 Resolved Kylie Yokum WOOD BARREL RECONDITIONER Sebaceous cyst Body Mass Index 23.0-23.9 Adult Refinement 2017 Kylie Yokum WOOD BARREL RECONDITIONER Body Mass Index between 19-24, adult BMI [...] RIGHT LOWER QUADRANT ICD-789.03 Inactive Kina Joshua WOOD BARREL RECONDITIONER ADENOCARCINOMA, COLON, 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 Dick Yates MD ABDOMINAL PAIN, GENERALIZED ICD-789.07 Inactive Hope Benavidez MD PhD FEVER UNSPECIFIED ICD-780.60 Inactive Hope cohn MD PhD UNSPECIFIED VENOUS INSUFFICIENCY ICD-459.81 Elda ctive Adam Yates MD ADENOCARCINOMA, 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 Inac tive Hope Benavidez MD PhD Hyperkalemia ICD-276.7 Inactive Hope Benavidez MD PhD GERD ICD-530.81 Inactive Kylie Yanet WOOD BARREL RECONDITIONER 2015 Health maintenance exam ICD-V70.0 Bam Yates MD Anemia ICD-285.9 Inactive Kylie Yanet WOOD BARREL RECONDITIONER 07/24 Hypomagnesemia ICD-275.2 Inactive Kylie Holt WOOD BARREL RECONDITIONER Weakness ICD-780.79 Inactive Hope Benavidez MD P [...] cyst, scalp ICD-706.2 Inactive Tracy hi Yokum WOOD BARREL RECONDITIONER Cervical lymphadenopathy, anterior, left ICD-785.6 Inactive Kylie Yokum WOOD BARREL RECONDITIONER Need for prophylactic vaccination and inoculation against in fluenza ICD-V04.81 Inactive Adam Yates MD Preventive health care ICD-V70.0 Inactive Ka thi Yokum WOOD BARREL RECONDITIONER Thyroid nodule, left ICD-241.0 Inactive Selena Yates MD Screening mammogram ICD-V76.12 Inactive Kylie Yokum WOOD BARREL RECONDITIONER Mandy ICD-706.2 Inactive Kylie Yokum WOOD BARREL RECONDITIONER 07/20 Colon cancer, ascending ICD-153.6 Inactive K athi Yokum WOOD BARREL RECONDITIONER Foot pain, left ICD-729.5 Inactive Kylie Yokum WOOD BARREL RECONDITIONER Splinter ICD-919.6 Inactive Kylie Yokum WOOD BARREL RECONDITIONER 2017 Rash ICD-782.1 Inactive Kylie Yokum WOOD BARREL RECONDITIONER 07/25 Cyst ICD-706.2 Inactive Kylie Yokum WOOD BARREL RECONDITIONER 08/11 Unspecified fall, initial encounter ICD-E888.9 Inactive Kylie Yokum WOOD BARREL RECONDITIONER Eye pain, left ICD-379.91 Inactive Kylie Holt [...] other medications for hypothyroidism. LEVOTHYROX INE SODIUM 46119340574 Active Kylie Holt APRN Active VOLTAREN 1 % TRANSDERMAL GEL apply 2 grams q 6-8 hour to left arm as needed for pain DICLOFENAC SODIUM 20115949152 Active Kylie Holt APR N Active IMODIUM A-D 2 MG ORAL TABLET 1 tablet twice a day LOPERAMIDE HCL 81905307188 Active Kylie Holt APRN Active COQ10 100 MG ORAL CAPSULE 1 daily COENZYME Q10 613541 38514 Active LETY [place] Active VITAMIN D3 2000 UNIT ORAL CAPSULE Melaleuca-One daily CHOLECALCIFEROL 66086486375 Active Kylie Holt APRN Active PROBIOTIC DAILY ORAL CAPSULE Take one daily PROBIO TIC PRODUCT 20280165142 Active Kylie Holt APRN Active IRON 325 (65 Fe) MG ORAL TABLET 1 every other day FERROUS SULFATE 98278335788 No Longer Active Kylie Yokum WOOD BARREL RECONDITIONER Active FLORANEX ORAL PACKET 1 pack three times daily, for bowel health LACTOBACILLUS 05840515418 No Longer Active Kylie Lundum WOOD [employer]REL RECONDITIONER Active LOMOTIL 2.5-0.025 MG ORAL TABLET 1 tab by mouth prn 20 23/10/23 DIPHENOXYLATE-ATROPINE 42947543273 No Longer Active Kylie Yokum WOOD BARREL RECONDITIONER Active MAGNESIUM GLUCONATE 250 MG ORAL TABLET 1 tab tid 23/10/23 MAGNESIUM GLUCONATE 30703127494 No Longer Active Kylie Yokum WOOD BARREL RECONDITIONER Active CYANOCOBALAMIN 1000 MCG/ML INJECTION SOLUTION 1 injection ev ruben 2 weeks CYANOCOBALAMIN 94528997935 No Longer Active Kylie Lund um WOOD BARREL RECONDITIONER Active ATENOLOL 25 MG ORAL TABLET 1/2 pill by mouth daily, fo r headaches, blood pressure ATENOLOL 47852265508 Active Kylie Escalonakum [employer]REL RECONDITIONER Active PROPRANOLOL HCL 80 MG ORAL TABLET 1 tab tue. and thur. PROPRANOLOL HCL 44533047906 No Longer Active Hope Benavidez MD PhD A ctive VITAMIN D3 4000 IU 1 tab 3 times daily VITAMIN D3 4000 IU No Longer Active Hope Benavidez MD PhD Active BACTRIM DS 800-160 MG ORAL TABLET 1 pill by mouth twice claudio y, for UTI SULFAMETHOXAZOLE-TRIMETHOPRIM 03118498040 No Longer Active Hope Benavidez MD PhD Active PROLIA 60 MG/ML SUBCUTANEOUS SOLUTION 1 shot every 6 months for osteoprosis DENOSUMAB 59929809339 Active Hope Benavidez MD PhD Active CALCIUM + D + K 750-500-40 MG-UNT-MCG ORAL TABLET 1 tab by m out twice daily CALCIUM-VITAMIN D-VITAMIN K 45466821819 Active Hope valdez MD PhD Active DAILY VALUE MULTIVITAMIN ORAL TABLET 1 tab by mouth twice daily 201 05/16/14 MULTIPLE VITAMIN 15122092626 Active Hope Benavidez MD PhD Acti ve FISH OIL 306 MG CAPS 1 tab by mouth three times daily OMEGA-3 FATTY ACIDS 44829162538 Active Hope Benavidez MD PhD Active LUTEIN 10 MG ORAL TABLET 1 tab daily LUTEIN 44935361 408 Active Hope Benavidez MD PhD Active TRIAMTERENE-HCTZ 37.5-25 MG ORAL TABLET 1 tab by mouth daily 10/22 TRIAMTERENE-HCTZ 64482606527 Active Kylie Holt [employer] RECONDITIONER Active CYCLOBENZAPRINE HCL 10 MG ORAL TABLET 1 tablet by mout h three times daily as needed for headaches CYCLOBENZAPRINE HCL 71599878606 No Longer Active Adam Yates MD Active OMEPRAZOLE 20 MG ORAL CAPSULE DELAYED RELEASE 1 tablet by mo [facility] daily for GERD OMEPRAZOLE 12772148183 No Longer Active Adam Yates MD Active ZOFRAN 8 MG ORAL TABLET 1 tab by mouth every 12 hours prn 4 ONDANSETRON HCL 33029168427 No Longer Active Adam Yates MD Active PHENADOZ 25 MG RECTAL SUPPOSITORY 1 every 4 hrs. PRN 2 PROMETHAZINE HCL 82555041263 No Longer Active Adam Yates MD A ctive POTASSIUM CHLORIDE 20 MEQ ORAL PACKET by mouth twice a day prn 2 POTASSIUM CHLORIDE 73438901449 No Longer Active Adam Carpenter MD Active PROMETHAZINE HCL 25 MG ORAL TABLET 1 Q. 4 hr. PRN PROMETHAZINE HCL 50235202380 No Longer Active Adam Yates MD Active INNOPRAN XL 120 MG ORAL CAPSULE EXTENDED RELEASE 24 HO UR Take one by mouth daily PROPRANOLOL HCL SR BEADS 64986295202 No Longer Active Adam Yates MD Active FLAGYL 500 MG ORAL TABLET 1 pill by mouth three times daily, for diarrhea METRONIDAZOLE 78397736111 No Longer Active Hope landers MD PhD Active DYAZIDE 37.5-25 MG ORAL CAPSULE 1 qd TRIA MTERENE-HCTZ 77596615718 No Longer Active Hope Benavidez MD PhD Active PROZAC 20 MG ORAL CAPSULE 1 q d FLUOXETINE HCL 32055971870 No Longer Active Hope Benavidez MD PhD Active SIMVASTATIN 40 MG ORAL TABLET 1 qd SIMVAS TATIN 59417646516 No Longer Active Adam Yates MD Active MELOXICAM 15 MG ORAL TABLET 1 qd MELOXICAM 54812076772 No Longer Active Adam Yates MD Active EXCEDRIN EXTRA STRENGTH 250-250-65 MG ORAL TABLET 1-2 q6h [place] N headache [id number] 77546864798 Active Hope Benavidez MD PhD Active FLAGYL 500 MG ORAL TABLET 1 qid METRONIDAZOL E 64317750607 No Longer Active Adam Yates MD Active LEVAQUIN 750 MG ORAL TABLET 1 qd LEVOFLOXAC IN 02283040248 No Longer Active Adam Yates MD Active ADULT ASPIRIN LOW STRENGTH 81 MG ORAL TABLET DISINTEGRATING 1 qd ASPIRIN 26501942544 Active Hope Benavidez MD PhD Active LEVAQUIN 750 MG ORAL TABLET 1 qd LEVAQUIN 750 MG ORAL TABLET 638404 LEVOFLOXACIN Inactive FLAGYL 500 MG ORAL TABLET 1 qid FLAGYL 500 MG ORAL TABLET 710974 METRONIDAZOLE Inactive MELOXICAM 15 MG ORAL TABLET 1 qd MELOXICAM 15 MG ORAL TABLET 238994 MELOXICAM Inactive SIMVASTATIN 40 MG ORAL TABLET 1 qd SIMVASTATIN 40 MG ORAL TABLET 509532 SIMVASTATIN Inactive PROZAC 20 MG ORAL CAPSULE 1 q d PROZAC 20 MG ORAL CAPSULE 440361 FLUOXETINE HCL Inactive DYAZIDE 37.5-25 MG ORAL CAPSULE 1 qd 5 DYAZIDE 37.5-25 MG ORAL CAPSULE 161198 TRIAMTERENE-HCTZ Inactive INNOPRAN XL 120 MG ORAL CAPSULE EXTENDED RELEASE 24 HO UR Take one by mouth daily INNOPRAN XL 120 MG ORAL CAPSULE EXTENDED RELEASE 24 HOUR PROPRANOLOL HCL SR BEADS Inactive PROMETHAZINE HCL 25 MG ORAL TABLET 1 Q. 4 hr. PRN 2013 PROMETHAZINE HCL 25 MG ORAL TABLET 177841 PROMETHAZINE HCL Inactive POTASSIUM CHLORIDE 20 MEQ ORAL PACKET by mouth twice a day prn 2 POTASSIUM CHLORIDE 20 MEQ ORAL PACKET 2431577 POTASSIUM CHLORIDE Inactive PHENADOZ 25 MG RECTAL SUPPOSITORY 1 every 4 hrs. PRN 2 PHENADOZ 25 MG RECTAL SUPPOSITORY 779111 PROMETHAZINE HCL Inactive ZOFRAN 8 MG ORAL TABLET 1 tab by mouth every 12 hours prn 4 ZOFRAN 8 MG ORAL TABLET 062915 ONDANSETRON HCL Inactive OMEPRAZOLE 20 MG ORAL CAPSULE DELAYED RELEASE 1 tablet by mo uth daily for GERD OMEPRAZOLE 20 MG ORAL CAPSULE DELAYED RELEASE 19 8051 OMEPRAZOLE Inactive CYCLOBENZAPRINE HCL 10 MG ORAL TABLET 1 tablet by mout h three times daily as needed for headaches CYCLOBENZAPRINE HCL 10 MG ORAL TABLET 617558 CYCLOBENZAPRINE HCL Inactive VITAMIN D3 4000 IU 1 tab 3 times daily VITAMIN D3 4000 IU Inactive PROPRANOLOL HCL 80 MG ORAL TABLET 1 tab tue. and thur. PROPRANOLOL HCL 80 MG ORAL TABLET 010163 PROPRANOLOL HCL Inacti ve CYANOCOBALAMIN 1000 MCG/ML INJECTION SOLUTION 1 injection ev ruben 2 weeks CYANOCOBALAMIN 1000 MCG/ML INJECTION SOLUTION 30 9594 CYANOCOBALAMIN Inactive MAGNESIUM GLUCONATE 250 MG ORAL TABLET 1 tab tid 23/10/23 MAGNESIUM GLUCONATE 250 MG ORAL TABLET 131201 MAGNESIUM GLUCONATE Inactive LOMOTIL 2.5-0.025 MG ORAL TABLET 1 tab by mouth prn 20 23/10/23 LOMOTIL 2.5-0.025 MG ORAL TABLET 1309947 DIPHENOXYLATE-ATROPINE Inac tive FLORANEX ORAL PACKET 1 pack three times daily, for bowel health FLORANEX ORAL PACKET 63033485448 LACTOBACILLUS Inactive IRON 325 (65 Fe) MG ORAL TABLET 1 every other day 2015 IRON 325 (65 Fe) MG ORAL TABLET 611312 FERROUS SULFATE Inactive FLAGYL 500 MG ORAL TABLET 1 pill by mouth three times daily, for diarrhea FLAGYL 500 MG ORAL TABLET 983305 METRONIDAZOLE I nactive BACTRIM DS 800-160 MG ORAL TABLET 1 pill by mouth twice claudio y, for UTI BACTRIM DS 800-160 MG ORAL TABLET 090867 SULFAMETHOXAZOLE-TRIMETHOPRIM Inactive Advance Directives Directive Description Start [...] ... - Chemistry sodium, serum 141 mmol/L 455-785 9818/01/10 potassium, serum 3.7 mmol/L 3.5-5.2 chloride, serum 101 mmol/L 98-107 carbon dioxide, venous blood 31.0 mmol/L 21.0-32 .0 blood glucose 96 mg/dL 65-95 calcium, serum 9.5 mg/dL 8.5-10.1 urea nitrogen, blood 21 mg/dL 7-18 creatinine, serum 1.40 mg/dL 0.60-1.30 Estimated Glomerular Filtration Rate (calc) 39 (?) mL/min/1.73m2 = OR > 60 mL/min cholesterol, serum 211 mg/dL 749-248 8320/01/10 triglyceride, serum, fasting 77 mg/dL 30-200 HDL [...] 0.82 ng/dL 0.59-1.17 sodium, serum 142 mmol/L 076-894 9489/04/16 carbon dioxide, venous blood 30.0 mmol/L 21.0-32 [...] - Chelle radha sodium, serum 142 mmol/L 328-992 6062/11/02 potassium, serum 3.4 mmol/L 3.5-5.2 chloride, serum [...] 0.59-1.17 Encounters Code Encounter Date Provider Facility CPT-84605 [id number] Vst-Est Level III 09:15:19 CDT Fiorella Holt [facility] CPT-05197 Level 4 Est. Patient 15:35:24 LEAF STAMPER Adam Yates MD [facility] CPT-91692 Level 3 New Patient 12:08:54 LEAF STAMPER Adam Yates MD [facility] CPT-50072 [id number] Vst-Est Level IV 19:48:30 LEAF STAMPER Tracy Holt [facility] CPT-42344 [id number] Vst-Est Level III 14:29:19 CDT Fiorella Holt [facility] CPT-52813 Level 2 Est. Patient 14:58:26 CDT Kylie boyd [facility] CPT-88954 Level 3 Est. Patient 08:15:24 LEAF STAMPER Kylie boyd [facility] CPT-18816 Level 2 Est. Patient 14:27:16 LEAF STAMPER Kylie boyd [facility] CPT-34972 Level 3 Est. Patient 17:54:48 CDT Kylie boyd [facility] CPT-31622 Level 3 Est. Patient 16:26:30 CDT Kina blackmon [facility] CPT-99528 Level 3 New Patient 16:22:01 LEAF STAMPER Adam Yates MD [facility] CPT-23098 Level 4 Est. Patient 17:00:48 CDT Kylie Lund [facility] [place] CPT-29455 Level 3 Est. Patient 13:15:54 CDT Kylie boyd [facility] [place] CPT-68752 Level 3 Est. Patient 09:10:11 CDT Kylie Lund [facility] CPT-68065 Level 4 Est. Patient 12:08:30 LEAF STAMPER Hope cohn MD PhD [facility] CPT-03826 Level 4 Est. Patient 19:08:42 LEAF STAMPER Hope cohn MD [facility] CPT-04345 Level 4 Est. Patient 20:04:51 CDT Hope cohn MD PhD [facility] CPT-63922 Level 3 New Patient 01:46:11 LEAF STAMPER Hope landers MD PhD [facility] Procedures Code Procedure Name Date Entry Date Standard Desc ription CPT-70547 Free T4 - LAB USE ONLY 11:44:37 CDT CPT-45426 TSH - LAB USE ONLY 11:44:37 CDT CPT-47515 Venipuncture Draw Fee 11:44:37 CDT CPT-J0897 Prolia 60 mg 10:36:55 CDT CPT-96511 Abx/Therapy Injection 10:36:55 CDT CPT-33094 Venipuncture Draw Fee 13:34:11 CDT CPT-G0439 Subsequent Annual Wellness Exam 09:15:19 CDT CPT-86386 Postop F/U Visit 15:45:41 CDT CPT-83371 Sono Soft Tissue Head and Neck - XRAY US E ONLY 11:56:06 LEAF STAMPER CPT-34323 Abx/Therapy Injection 09:40:08 LEAF STAMPER CPT-J0897 Prolia 60 mg 09:40:08 LEAF STAMPER CPT-27074 First Vx - Ix admin for Medicare patients 02/08 10:02:45 CDT CPT-13386 Fluzone Quadrivalent Intramuscular Suspe nsion 0.5 ML 10:02:45 CDT CPT-76022 Magnesium - LAB USE ONLY 09:41:00 CDT 12/09 CPT-18105 Renal Panel - LAB USE ONLY 09:41:00 CDT 201 09/17/01 CPT-61390 Venipuncture Draw Fee 09:41:00 CDT CPT-63162 Calcium - LAB USE ONLY 17:25:11 CDT CPT-J0897 Prolia 60 mg 15:10:59 CDT CPT-51354 Abx/Therapy Injection 15:10:59 CDT CPT-G0439 Subsequent Annual Wellness Exam 14:29:19 CDT CPT-52900 Venipuncture Draw Fee 10:59:04 CDT CPT-12463 CMP - LAB USE ONLY 10:59:04 CDT CPT-09877 CBC with Diff - LAB USE ONLY 10:59:03 CDT 2 CPT-J0897 Prolia 60 mg 15:46:54 LEAF STAMPER CPT-83434 Abx/Therapy Injection 15:46:54 LEAF STAMPER CPT-83834 Microalbumin - LAB USE ONLY 09:41:32 LEAF STAMPER 20 23/01/15 CPT-93866 Free T4 - LAB USE ONLY 09:41:32 LEAF STAMPER CPT-77131 TSH - LAB USE ONLY 09:41:32 LEAF STAMPER CPT-02633 BMP - LAB USE ONLY 09:41:32 LEAF STAMPER CPT-86615 Venipuncture Draw Fee 09:41:32 LEAF STAMPER CPT-03355 First Vx - Ix admin for Medicare patients 11:19:30 CDT CPT-64000 Fluzone High-Dose Intramuscular Suspension 12/07 11:19:30 CDT CPT-J0897 Prolia 60 mg 14:55:42 CDT CPT-49510 Abx/Therapy Injection 14:55:42 CDT CPT-41156 Bone Density - XRAY USE ONLY 10:27:12 CDT 2 CPT-G0439 Subsequent Annual Wellness Exam 17:54:53 CDT CPT-48010 Foot, left, comp min 3V - XRAY USE ONLY 12:22:49 CDT CPT-G0009 Administration of Pneumococcal Vaccine 3 12:18:00 CDT CPT-55579 Pneumovax 23 Injection Injectable 25 MCG /0.5ML 12:18:00 CDT CPT-J0897 Prolia 60 mg 14:14:16 LEAF STAMPER CPT-49754 Abx/Therapy Injection 14:14:15 LEAF STAMPER CPT-23230 Lipid - LAB USE ONLY 10:01:52 LEAF STAMPER 2 CPT-66880 Calcium - LAB USE ONLY 10:01:51 LEAF STAMPER CPT-07371 Venipuncture Draw Fee 10:01:51 LEAF STAMPER CPT-LR Lesion Removal 16:22:01 LEAF STAMPER CPT-38223 TSH - LAB USE ONLY 14:26:02 CDT CPT-99352 CMP - LAB USE ONLY 14:26:01 CDT CPT-38022 CBC with Diff - LAB USE ONLY 14:26:01 CDT 2 CPT-93971 Venipuncture Draw Fee 14:26:01 CDT CPT-83638 First Vx - Ix admin for Medicare patients 13:27:08 CDT CPT-94703 Fluzone High-Dose Intramuscular Suspension 11/26 13:27:08 CDT CPT-G0438 Initial Annual Wellness Exam 14:19:57 CD T CPT-G0009 Administration of Pneumococcal Vaccine 9 11:36:25 CDT CPT-80823 Prevnar 13 Intramuscular Suspension 1 1:36:25 CDT CPT-01141 Prevnar 13 Intramuscular Suspension 1 0:40:58 CDT CPT-J0897 Prolia 60 mg 10:37:16 CDT CPT-92399 Abx/Therapy Injection 10:37:16 CDT CPT-J0897 Prolia 60 mg 16:09:34 LEAF STAMPER CPT-J0897 Prolia 60 mg 11:10:35 LEAF STAMPER CPT-40408 Abx/Therapy Injection 11:10:35 LEAF STAMPER CPT-000 Give Appropriate Flu Vaccine 17:01:15 LEAF STAMPER 2 CPT-92399 Fluzone High Dose (65+) 15:03:08 LEAF STAMPER 02/15 CPT-29693 Immunization Single Admin 15:03:08 LEAF STAMPER 2014 CPT-OV Office Visit 15:58:06 CDT CPT-J0897 Prolia 60 mg 08:45:38 CDT CPT-98421 Abx/Therapy Injection 08:45:38 CDT CPT-J3420 Vitamin B12 1000mcg (Cyanocobalamin) 09:26:20 LEAF STAMPER CPT-91876 Abx/Therapy Injection 09:26:20 LEAF STAMPER CPT-J3420 Vitamin B12 1000mcg (Cyanocobalamin) 09:44:40 LEAF STAMPER CPT-52780 Abx/Therapy Injection 09:44:40 LEAF STAMPER CPT-J3420 Vitamin B12 1000mcg (Cyanocobalamin) 09:15:54 LEAF STAMPER CPT-13536 Abx/Therapy Injection 09:15:54 LEAF STAMPER CPT-J3420 Vitamin B12 1000mcg (Cyanocobalamin) 09:46:44 LEAF STAMPER CPT-12182 Abx/Therapy Injection 09:46:44 LEAF STAMPER CPT-J3420 Vitamin B12 1000mcg (Cyanocobalamin) 09:47:34 LEAF STAMPER CPT-88621 Abx/Therapy Injection 09:47:34 LEAF STAMPER CPT-J3420 Vitamin B12 1000mcg (Cyanocobalamin) 14:35:50 LEAF STAMPER CPT-J3420 Vitamin B12 1000mcg (Cyanocobalamin) 09:25:05 LEAF STAMPER CPT-93894 Abx/Therapy Injection 09:25:05 LEAF STAMPER CPT-G0008 Administration of Influenza Virus Vaccine 13:36:47 CDT CPT-66511 Fluzone High-Dose Intramuscular Suspension 11/15 13:36:47 CDT CPT-J0897 Prolia 60 mg 08:50:41 CDT CPT-37583 Abx/Therapy Injection 08:50:41 CDT CPT-63138 Bone Density 12:06:12 CDT CPT-01199 Bone Density 08:54:40 CDT CPT-OV Office Visit 15:37:02 CDT CPT-80377 Postop F/U Visit 15:47:49 CDT CPT-03495 Postop F/U Visit 15:21:02 CDT CPT-[facility] Transitional Care Mgmt-High 07:52:27 CDT 20 20/06/01 CPT-33951 Venipuncture Draw Fee 13:51:18 CDT CPT-27878 Venipuncture Draw Fee 10:14:55 LEAF STAMPER CPT-85062 Venipuncture Draw Fee 13:39:45 LEAF STAMPER CPT-OV Office Visit 15:11:22 LEAF STAMPER CPT-47195 Venipuncture Draw Fee 09:20:49 LEAF STAMPER CPT-01214 Venipuncture Draw Fee 16:52:15 LEAF STAMPER CPT-26156 Venipuncture Draw Fee 10:37:24 LEAF STAMPER CPT-29124 Venipuncture Draw Fee 08:21:21 LEAF STAMPER CPT-01444 Venipuncture Draw Fee 08:30:20 LEAF STAMPER CPT-37014 Venipuncture Draw Fee 14:53:21 LEAF STAMPER CPT-26922 Venipuncture Draw Fee 09:40:56 LEAF STAMPER CPT-66004 Venipuncture Draw Fee 10:30:47 LEAF STAMPER CPT-28974 Venipuncture Draw Fee 10:46:17 LEAF STAMPER CPT-17604 Venipuncture Draw Fee 11:12:45 LEAF STAMPER CPT-96112 Venipuncture Draw Fee 09:53:33 LEAF STAMPER CPT-82364 Venipuncture Draw Fee 11:53:51 LEAF STAMPER CPT-30661 Venipuncture Draw Fee 10:33:50 LEAF STAMPER CPT-86388 Venipuncture Draw Fee 10:05:01 LEAF STAMPER CPT-69255 Venipuncture Draw Fee 14:32:52 LEAF STAMPER CPT-42539 Venipuncture Draw Fee 09:46:13 LEAF STAMPER CPT-83624 Venipuncture Draw Fee 11:34:27 LEAF STAMPER CPT-57888 Venipuncture Draw Fee 13:17:16 LEAF STAMPER CPT-40064 Venipuncture Draw Fee 12:05:39 CDT CPT-43950 Venipuncture Draw Fee 12:49:12 CDT CPT-33291 Venipuncture Draw Fee 12:37:18 CDT CPT-30765 Venipuncture Draw Fee 10:57:11 CDT CPT-89267 Venipuncture Draw Fee 13:47:40 CDT CPT-60965 Venipuncture Draw Fee 10:02:17 CDT CPT-03462 TB Tubersol 17:32:32 CDT CPT-OV Office Visit 16:21:53 CDT CPT-OV Office Visit 15:49:22 CDT CPT-OV Office Visit 17:16:31 CDT CPT-OV Office Visit 10:43:31 CDT
--- OUTSIDE RECORDS SUMMARY | 2019-02-09 11:43 | XMS REPORT | Clinical Summary ---
Author Author Renaldo, Florecita Munoz Organization [facility] [employer] Address Unknown Phone Unavailable Allergies, Adverse Reactions, [...] PhD Hyperpotassemia GERD 530.81 Resolved Kylie Yokum PROCESS CONTROLS TECHNICIAN Esophageal reflux Health maintenance exam V70.0 Resolved Adolfo Yates MD Routine general medical examination at a health care facility Anemia 285.9 Resolved Kylie Yanet PROCESS CONTROLS TECHNICIAN Anemia, unspecified Personal history of malignant neoplasm of large intestine V10.05 Active Adam Yates MD Personal history of malignant neoplasm of large intestine Hypomagnesemia 275.2 Resolved Kylie Yanet PROCESS CONTROLS TECHNICIAN Disorders of magnesium metabolism Weakness 780.79 [...] Sebaceous cyst, scalp 706.2 Resolved Kylie Yokum PROCESS CONTROLS TECHNICIAN Sebaceous cyst Cervical lymphadenopathy, anterior, left 785.6 Resolv ed Kylie Yokum PROCESS CONTROLS TECHNICIAN Enlargement of lymph nodes Need for prophylactic vaccination and inoculation against in fluenza V04.81 Resolved Adam Yates MD Need for prophylactic vaccination and inoculation against influenza Preventive health care V70.0 Resolved Kylie Lundu m PROCESS CONTROLS TECHNICIAN Routine general medical examination at a health care facility Thyroid nodule, left 241.0 Resolved Selena Yates MD Nontoxic uninodular goiter Screening mammogram V76.12 Resolved Kylie Yokum A PRN Other screening mammogram Mandy 706.2 Resolved Kylie Yokum PROCESS CONTROLS TECHNICIAN Sebaceous cyst Colon cancer, ascending 153.6 Resolved Kylie Yok um PROCESS CONTROLS TECHNICIAN Malignant neoplasm of ascending colon Foot pain, left 729.5 Resolved Kylie Yokum PROCESS CONTROLS TECHNICIAN Pain in limb Splinter 919.6 Resolved Kylie Yokum PROCESS CONTROLS TECHNICIAN Superficial foreign body (splinter) of other, multiple, and unspecified sites, without major open wound and without mention of infection Rash 782.1 Resolved Kylie Yokum PROCESS CONTROLS TECHNICIAN Rash and other nonspecific skin eruption Cyst 706.2 Resolved Kylie Yokum PROCESS CONTROLS TECHNICIAN Sebaceous cyst Body Mass Index 23.0-23.9 Adult Refinement 2017 Kylie Yokum PROCESS CONTROLS TECHNICIAN Body Mass Index between 19-24, adult [...] RIGHT LOWER QUADRANT ICD-789.03 Inactive Kina Joshua PROCESS CONTROLS TECHNICIAN UNSPECIFIED VENOUS INSUFFICIENCY ICD-459.81 Elda ctive Adam Yates MD ABDOMINAL PAIN, GENERALIZED ICD-789.07 Inactive Hope Benavidez MD PhD ADENOCARCINOMA, 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 Inac tive Hope Benavidez MD PhD Hyperkalemia ICD-276.7 Inactive Hope Benavidez MD PhD FEVER UNSPECIFIED ICD-780.60 Inactive Hope cohn MD PhD Health maintenance exam ICD-V70.0 Inactive Adolfo Yates MD Anemia ICD-285.9 Inactive Kylie Escalonapari PROCESS CONTROLS TECHNICIAN 07/24 GERD ICD-530.81 Inactive Kylieshubham Holt PROCESS CONTROLS TECHNICIAN 2015 Hypomagnesemia ICD-275.2 Inactive Kylie Polapari PROCESS CONTROLS TECHNICIAN Weakness ICD-780.79 Inactive Hope Benavidez MD P hD Asymptomatic postmenopausal status (age-related) (natural) I CD-V49.81 Inactive Hope Benavidez MD PhD Aftercare following surgery of the teeth,oral cavity a nd digestive system, NEC ICD-V58.75 Inactive Adam Yates MD Diarrhea, functional ICD-564.5 Inactive Selena Yates MD Dysuria ICD-788.1 Inactive Hope Benavidez MD PhD 201 05/19/01 Adenocarcinoma, ascending colon ICD-153.6 Inac tive Adam Yates MD Colon cancer ICD-153.9 Inactive Adam luna MD Cervical lymphadenopathy, anterior, left ICD-785.6 Inactive Kylie Yokum PROCESS CONTROLS TECHNICIAN Need for prophylactic vaccination and inoculation against in fluenza ICD-V04.81 Inactive Adam Yates MD Sebaceous cyst, scalp ICD-706.2 Inactive Tracy hi Yokum PROCESS CONTROLS TECHNICIAN Preventive health care ICD-V70.0 Inactive Ka thi Yokum PROCESS CONTROLS TECHNICIAN Screening mammogram ICD-V76.12 Inactive Kylie Yokum PROCESS CONTROLS TECHNICIAN Mandy ICD-706.2 Inactive Kylie Yokum PROCESS CONTROLS TECHNICIAN 07/20 Colon cancer, ascending ICD-153.6 Inactive K athi Yokum PROCESS CONTROLS TECHNICIAN Foot pain, left ICD-729.5 Inactive Kylie Yokum PROCESS CONTROLS TECHNICIAN Splinter ICD-919.6 Inactive Kylie Yokum PROCESS CONTROLS TECHNICIAN 2017 Rash ICD-782.1 Inactive Kylie Yokum PROCESS CONTROLS TECHNICIAN 07/25 Cyst ICD-706.2 Inactive Kylie Yokum PROCESS CONTROLS TECHNICIAN 08/11 Unspecified fall, initial encounter ICD-E888.9 Inactive Kylie Yokum PROCESS CONTROLS TECHNICIAN Eye pain, left ICD-379.91 Inactive Kylie Yokum PROCESS CONTROLS TECHNICIAN Pharyngitis, acute ICD-074.0 Inactive Kavin Yates MD Hypomagnesemia ICD-275.2 Inactive Adam Franklin MD Hypokalemia ICD-276.8 Inactive Adam enamorado MD Enlarged thyroid ICD-240.9 Inactive Adam Yates MD Underweight Inactive LETY Nation 05/17 Follicular adenoma, thyroid ICD-226 Inactive Adam Yates MD Preventive health care, adult ICD-V70.0 Inacti ve Kylie Holt APRN Thyroid nodule, left ICD-241.0 Inactive Selena Yates MD Medication List Medication Instructions Start Date Stop Date Generic Name NDC Status Provider Patient Instruction SYNTHROID 75 MCG ORAL TABLET Take one tablet 30 minute s before breakfast or other medications for hypothyroidism. LEVOTHYROX INE SODIUM 03481476784 Active Kylie Holt APRN Active VOLTAREN 1 % TRANSDERMAL GEL apply 2 grams q 6-8 hour to left arm as needed for pain DICLOFENAC SODIUM 61800101950 Active Kylie Holt APR N Active IMODIUM A-D 2 MG ORAL TABLET 1 tablet twice a day LOPERAMIDE HCL 85549381592 Active Kylie Holt APRN Active COQ10 100 MG ORAL CAPSULE 1 daily COENZYME Q10 594497 55135 Active Fay Alberts Lisa Active VITAMIN D3 2000 UNIT ORAL CAPSULE Melaleuca-One daily CHOLECALCIFEROL 71910566176 Active Kylie Holt APRN Active PROBIOTIC DAILY ORAL CAPSULE Take one daily PROBIO TIC PRODUCT 62824090529 Active Kylie Holt APRN Active IRON 325 (65 Fe) MG ORAL TABLET 1 every other day FERROUS SULFATE 72741668521 No Longer Active Kylie Yokum PROCESS CONTROLS TECHNICIAN Active FLORANEX ORAL PACKET 1 pack three times daily, for bowel health LACTOBACILLUS 52677731181 No Longer Active Kylie Yokum PROCESS CONTROLS TECHNICIAN Active LOMOTIL 2.5-0.025 MG ORAL TABLET 1 tab by mouth prn 20 23/10/23 DIPHENOXYLATE-ATROPINE 23936522951 No Longer Active Kylie Yokum PROCESS CONTROLS TECHNICIAN Active MAGNESIUM GLUCONATE 250 MG ORAL TABLET 1 tab tid 23/10/23 MAGNESIUM GLUCONATE 33003905039 No Longer Active Kylie Yokum PROCESS CONTROLS TECHNICIAN Active CYANOCOBALAMIN 1000 MCG/ML INJECTION SOLUTION 1 injection ev ruben 2 weeks CYANOCOBALAMIN 34161404165 No Longer Active Kylie Yok um PROCESS CONTROLS TECHNICIAN Active ATENOLOL 25 MG ORAL TABLET 1/2 pill by mouth daily, fo r headaches, blood pressure ATENOLOL 82292022552 Active Kylie Yokum PROCESS CONTROLS TECHNICIAN Active PROPRANOLOL HCL 80 MG ORAL TABLET 1 tab tue. and thur. PROPRANOLOL HCL 69098471613 No Longer Active Hope Benavidez MD PhD A ctive VITAMIN D3 4000 IU 1 tab 3 times daily VITAMIN D3 4000 IU No Longer Active Hope Benavidez MD PhD Active BACTRIM DS 800-160 MG ORAL TABLET 1 pill by mouth twice claudio y, for UTI SULFAMETHOXAZOLE-TRIMETHOPRIM 88221203071 No Longer Active Hope Benavidez MD PhD Active PROLIA 60 MG/ML SUBCUTANEOUS SOLUTION 1 shot every 6 months for osteoprosis DENOSUMAB 99662055124 Active Hope Benavidez MD PhD Active CALCIUM + D + K 750-500-40 MG-UNT-MCG ORAL TABLET 1 tab by m outh twice daily CALCIUM-VITAMIN D-VITAMIN K 22942423576 Active Hope valdez MD PhD Active DAILY VALUE MULTIVITAMIN ORAL TABLET 1 tab by mouth twice daily 201 05/16/14 MULTIPLE VITAMIN 68416839231 Active Hope Benavidez MD PhD Acti ve FISH OIL 306 MG CAPS 1 tab by mouth three times daily OMEGA-3 FATTY ACIDS 27472468224 Active Hope Benavidez MD PhD Active LUTEIN 10 MG ORAL TABLET 1 tab daily LUTEIN 78897063 408 Active Hope Benavidez MD PhD Active TRIAMTERENE-HCTZ 37.5-25 MG ORAL TABLET 1 tab by mouth daily 10/22 TRIAMTERENE-HCTZ 83069326469 Active Kylie Holt PROCESS CONTROLS TECHNICIAN Active CYCLOBENZAPRINE HCL 10 MG ORAL TABLET 1 tablet by mout h three times daily as needed for headaches CYCLOBENZAPRINE HCL 42244232607 No Longer Active Adam Yates MD Active OMEPRAZOLE 20 MG ORAL CAPSULE DELAYED RELEASE 1 tablet by mo [facility] daily for GERD OMEPRAZOLE 71947983254 No Longer Active Adam Yates MD Active ZOFRAN 8 MG ORAL TABLET 1 tab by mouth every 12 hours prn 4 ONDANSETRON HCL 60772803305 No Longer Active Adam Yates MD Active PHENADOZ 25 MG RECTAL SUPPOSITORY 1 every 4 hrs. PRN 2 PROMETHAZINE HCL 48278657495 No Longer Active Adam Yates MD A ctive POTASSIUM CHLORIDE 20 MEQ ORAL PACKET by mouth twice a day prn 2 POTASSIUM CHLORIDE 60405357322 No Longer Active Adam Carpenter MD Active PROMETHAZINE HCL 25 MG ORAL TABLET 1 Q. 4 hr. PRN PROMETHAZINE HCL 75691569700 No Longer Active Adam Yates MD Active INNOPRAN XL 120 MG ORAL CAPSULE EXTENDED RELEASE 24 HO UR Take one by mouth daily PROPRANOLOL HCL SR BEADS 03752226171 No Longer Active Adam Yates MD Active FLAGYL 500 MG ORAL TABLET 1 pill by mouth three times daily, for diarrhea METRONIDAZOLE 76126915362 No Longer Active Hope landers MD PhD Active DYAZIDE 37.5-25 MG ORAL CAPSULE 1 qd TRIA MTERENE-HCTZ 31905392228 No Longer Active Hope Benavidez MD PhD Active PROZAC 20 MG ORAL CAPSULE 1 q d FLUOXETINE HCL 77315050227 No Longer Active Hope Benavidez MD PhD Active SIMVASTATIN 40 MG ORAL TABLET 1 qd SIMVAS TATIN 14278032546 No Longer Active Adam Yates MD Active MELOXICAM 15 MG ORAL TABLET 1 qd MELOXICAM 13939343728 No Longer Active Adam Yates MD Active EXCEDRIN EXTRA STRENGTH 250-250-65 MG ORAL TABLET 1-2 q6h MS N headache [id number] 48264125656 Active Hope Benavidez MD PhD Active FLAGYL 500 MG ORAL TABLET 1 qid METRONIDAZOL E 94796572535 No Longer Active Adam Yates MD Active LEVAQUIN 750 MG ORAL TABLET 1 qd LEVOFLOXAC IN 67816394714 No Longer Active Adam Yates MD Active ADULT ASPIRIN LOW STRENGTH 81 MG ORAL TABLET DISINTEGRATING 1 qd ASPIRIN 44692007747 Active Hope Benavidez MD PhD Active LEVAQUIN 750 MG ORAL TABLET 1 qd LEVAQUIN 750 MG ORAL TABLET 816760 LEVOFLOXACIN Inactive FLAGYL 500 MG ORAL TABLET 1 qid FLAGYL 500 MG ORAL TABLET 226032 METRONIDAZOLE Inactive MELOXICAM 15 MG ORAL TABLET 1 qd MELOXICAM 15 MG ORAL TABLET 613617 MELOXICAM Inactive SIMVASTATIN 40 MG ORAL TABLET 1 qd SIMVASTATIN 40 MG ORAL TABLET 555343 SIMVASTATIN Inactive PROZAC 20 MG ORAL CAPSULE 1 q d PROZAC 20 MG ORAL CAPSULE 043595 FLUOXETINE HCL Inactive DYAZIDE 37.5-25 MG ORAL CAPSULE 1 qd 5 DYAZIDE 37.5-25 MG ORAL CAPSULE 400961 TRIAMTERENE-HCTZ Inactive INNOPRAN XL 120 MG ORAL CAPSULE EXTENDED RELEASE 24 HO UR Take one by mouth daily INNOPRAN XL 120 MG ORAL CAPSULE EXTENDED RELEASE 24 HOUR PROPRANOLOL HCL SR BEADS Inactive PROMETHAZINE HCL 25 MG ORAL TABLET 1 Q. 4 hr. PRN 2013 PROMETHAZINE HCL 25 MG ORAL TABLET 758125 PROMETHAZINE HCL Inactive POTASSIUM CHLORIDE 20 MEQ ORAL PACKET by mouth twice a day prn 2 POTASSIUM CHLORIDE 20 MEQ ORAL PACKET 7397213 POTASSIUM CHLORIDE Inactive PHENADOZ 25 MG RECTAL SUPPOSITORY 1 every 4 hrs. PRN 2 PHENADOZ 25 MG RECTAL SUPPOSITORY 440380 PROMETHAZINE HCL Inactive ZOFRAN 8 MG ORAL TABLET 1 tab by mouth every 12 hours prn 4 ZOFRAN 8 MG ORAL TABLET 049222 ONDANSETRON HCL Inactive OMEPRAZOLE 20 MG ORAL CAPSULE DELAYED RELEASE 1 tablet by mo ut daily for GERD OMEPRAZOLE 20 MG ORAL CAPSULE DELAYED RELEASE 19 8051 OMEPRAZOLE Inactive CYCLOBENZAPRINE HCL 10 MG ORAL TABLET 1 tablet by mout h three times daily as needed for headaches CYCLOBENZAPRINE HCL 10 MG ORAL TABLET 554546 CYCLOBENZAPRINE HCL Inactive VITAMIN D3 4000 IU 1 tab 3 times daily VITAMIN D3 4000 IU Inactive PROPRANOLOL HCL 80 MG ORAL TABLET 1 tab tue. and thur. PROPRANOLOL HCL 80 MG ORAL TABLET 720106 PROPRANOLOL HCL Inacti ve CYANOCOBALAMIN 1000 MCG/ML INJECTION SOLUTION 1 injection ev ruben 2 weeks CYANOCOBALAMIN 1000 MCG/ML INJECTION SOLUTION 30 9594 CYANOCOBALAMIN Inactive MAGNESIUM GLUCONATE 250 MG ORAL TABLET 1 tab tid 23/10/23 MAGNESIUM GLUCONATE 250 MG ORAL TABLET 515999 MAGNESIUM GLUCONATE Inactive LOMOTIL 2.5-0.025 MG ORAL TABLET 1 tab by mouth prn 20 23/10/23 LOMOTIL 2.5-0.025 MG ORAL TABLET 5023025 DIPHENOXYLATE-ATROPINE Inac tive FLORANEX ORAL PACKET 1 pack three times daily, for bowel health FLORANEX ORAL PACKET 94484831868 LACTOBACILLUS Inactive IRON 325 (65 Fe) MG ORAL TABLET 1 every other day 2015 IRON 325 (65 Fe) MG ORAL TABLET 458824 FERROUS SULFATE Inactive FLAGYL 500 MG ORAL TABLET 1 pill by mouth three times daily, for diarrhea FLAGYL 500 MG ORAL TABLET 842627 METRONIDAZOLE I nactive BACTRIM DS 800-160 MG ORAL TABLET 1 pill by mouth twice claudio y, for UTI BACTRIM DS 800-160 MG ORAL TABLET 551225 SULFAMETHOXAZOLE-TRIMETHOPRIM Inactive Advance Directives Directive Description Start [...] leukocyte count, blood 5.6 10^3/MM^3 10*3/mm3 4.6-10.2 hematocrit, blood 42.0 % 37.0-47.0 mean corpuscular volume, RBC 92 fL 80-97 mean corpuscular hemoglobin, RBC 30.2 pg 27. 0-31.2 mean corpuscular hemoglobin concentration, RBC 32.7 G/DL % 31.8-35.4 red blood cell distribution width 11.5 % 11 .6-14.8 platelet count 181 10^3/MM^3 10*3/mm3 466-961 6080/04/16 neutrophils as percent of blood leukocytes 57.4 % 42.2-75.2 monocytes as percent of blood leukocytes 6.1 % 1.7-9.3 lymphocytes as percent of blood leukocytes 30.8 % 20.5-51.1 erythrocyte (RBC) count 4.54 10^6/MM^3 10*6/mm3 3.80-5.8 0 hemoglobin, blood 13.7 g/dL 12.0-16.0 Lab Report: CBC, Basic Metabolic Panel, MICROALB/CREAT W/RATIO, Lipid Pa ... - Chemistry sodium, serum 141 mmol/L 086-643 3970/01/10 potassium, serum 3.7 mmol/L 3.5-5.2 chloride, serum 101 mmol/L 98-107 carbon dioxide, venous blood 31.0 mmol/L 21.0-32 .0 blood glucose 96 mg/dL 65-95 calcium, serum 9.5 mg/dL 8.5-10.1 urea nitrogen, blood 21 mg/dL 7-18 creatinine, serum 1.40 mg/dL 0.60-1.30 Estimated Glomerular Filtration Rate (calc) 39 (?) mL/min/1.73m2 = OR > 60 mL/min cholesterol, serum 211 mg/dL 950-102 2197/01/10 triglyceride, serum, fasting 77 mg/dL 30-200 HDL cholesterol, serum 70 mg/dL 32-60 LDL cholesterol, serum 126 mg/dL 0-130 TSH 1.19 m[iU]/mL 0.36-3.74 Lab Report: CBC, Basic Metabolic Panel, MICROALB/CREAT W/RATIO, Lipid Pa ... - Hematology erythrocyte (RBC) count 4.69 10^6/MM^3 10*6/mm3 3.80-5.8 0 hemoglobin, blood 14.1 g/dL 12.0-16.0 hematocrit, blood 43.1 % 37.0-47.0 mean corpuscular volume, RBC 92 fL 80-97 mean corpuscular hemoglobin, RBC 30.1 pg 27. 0-31.2 leukocyte count, blood 4.6 10^3/MM^3 10*3/mm3 4.6-10.2 mean corpuscular hemoglobin concentration, RBC 32.7 G/DL [...] ... - Chemistry sodium, serum 142 mmol/L 774-296 5308/04/16 creatinine, serum 1.52 mg/dL 0.60-1.30 Estimated Glomerular Filtration Rate (calc) 36 (?) mL/min/1.73m2 = OR > 60 mL/min alanine aminotransferase (SGPT), serum 24 U/L 12-78 aspartate aminotransferase (SGOT), serum 21 U/L 15-37 calcium, serum 9.1 mg/dL 8.5-10.1 bilirubin, serum, total 0.60 mg/dL 0.00-1.00 TSH 1.76 m[iU]/mL 0.36-3.74 thyroxine, serum, free 0.82 ng/dL 0.59-1.17 carbon dioxide, venous blood 30.0 mmol/L 21.0-32 .0 potassium, serum 3.2 mmol/L 3.5-5.2 chloride, serum 101 mmol/L 98-107 blood glucose 77 mg/dL 65-95 urea nitrogen, blood 21 mg/dL 7-18 Lab Report: Comp. Metabolic Panel, Thyro id Stimulating Hormone (L), Free ... - Lab Alkaline phosphatase 48 50-136 Lab Report: Renal Panel, Magnesium - Chelle radha blood glucose 81 mg/dL 65-95 urea nitrogen, blood 17 mg/dL 7-18 calcium, serum 8.1 mg/dL 8.5-10.1 Estimated Glomerular Filtration Rate (calc) 41 (?) mL/min/1.73m2 = OR > 60 mL/min creatinine, serum 1.35 mg/dL 0.60-1.30 carbon dioxide, venous blood 31.5 mmol/L 21.0-32 .0 chloride, serum 101 mmol/L 98-107 potassium, serum 3.4 mmol/L 3.5-5.2 sodium, serum 142 mmol/L 136-145 Lab Report: Thyroid Stimulating Hormone (L), Free Thyroxine (L) - Chemistry TSH 13.59 m[iU]/mL 0.36-3.74 thyroxine, serum, free 0.47 ng/dL 0.59-1.17 TSH 13.85 m[iU]/mL 0.36-3.74 thyroxine, serum, free 0.65 ng/dL 0.59-1.17 Encounters Code Encounter Date Provider Facility CPT-72912 19122-Hpm Vst-Est Level III 09:15:[facility] 4 Est[facility] Patient 15:35:24 WOOD FUEL PELLETIZER Adam Yates MD [facility] CPT-55880 Level 3 New Patient 12:08:54 WOOD FUEL PELLETIZER Adam Yates MD [facility] CPT-33649 45024-Scd Vst-Est Level IV 19:48:30 WOOD FUEL PELLETIZER Tracy Holt [facility] [place] CPT-88329 88690-Isr Vst-Est Level III 14:29:19 CDT Fiorella Holt [facility] [place] CPT-84301 Level 2 Est. Patient 14:58:26 CDT Kylie boyd [facility] [place] CPT-87258 Level 3 Est. Patient 08:15:24 WOOD FUEL PELLETIZER Kylie boyd [facility] [place] CPT-35217 Level 2 Est. Patient 14:27:16 WOOD FUEL PELLETIZER Kylie boyd [facility] [place] CPT-74844 Level 3 Est. Patient 17:54:48 CDT Kylie boyd [facility] [place] CPT-52628 Level 3 Est. Patient 16:26:30 CDT Kina blackmon [facility] CPT-42220 Level 3 New Patient 16:22:01 WOOD FUEL PELLETIZER Adam Yates MD [facility] CPT-25364 Level 4 Est. Patient 17:00:48 CDT Kylie Lund [facility] [place] CPT-75009 Level 3 Est. Patient 13:15:54 CDT Kylie boyd [facility] CPT-70800 Level 3 Est. Patient 09:10:11 CDT Kylie Lund [facility] CPT-45476 Level 4 Est. Patient 12:08:30 WOOD FUEL PELLETIZER Hope cohn MD PhD [facility] CPT-51459 Level 4 Est. Patient 19:08:42 WOOD FUEL PELLETIZER Hope cohn MD PhD [facility] CPT-06215 Level 4 Est. Patient 20:04:51 CDT Hope cohn MD PhD [facility] CPT-10444 Level 3 New Patient 01:46:11 WOOD FUEL PELLETIZER Hope landers MD PhD [facility] Procedures Code Procedure Name Date Entry Date Standard Desc ription CPT-65377 Free T4 - LAB USE ONLY 11:44:37 CDT CPT-40004 TSH - LAB USE ONLY 11:44:37 CDT CPT-87949 Venipuncture Draw Fee 11:44:37 CDT CPT-J0897 Prolia 60 mg 10:36:55 CDT CPT-42232 Abx/Therapy Injection 10:36:55 CDT CPT-48353 Venipuncture Draw Fee 13:34:11 CDT CPT-G0439 Subsequent Annual Wellness Exam 09:15:19 CDT CPT-64577 Postop F/U Visit 15:45:41 CDT CPT-01246 Sono Soft Tissue Head and Neck - XRAY US E ONLY 11:56:06 WOOD FUEL PELLETIZER CPT-47342 Abx/Therapy Injection 09:40:08 WOOD FUEL PELLETIZER CPT-J0897 Prolia 60 mg 09:40:08 WOOD FUEL PELLETIZER CPT-89970 First Vx - Ix admin for Medicare patients 02/08 10:02:45 CDT CPT-44745 Fluzone Quadrivalent Intramuscular Suspe nsion 0.5 ML 10:02:45 CDT CPT-72073 Magnesium - LAB USE ONLY 09:41:00 CDT 12/09 CPT-02623 Renal Panel - LAB USE ONLY 09:41:00 CDT 201 09/17/01 CPT-67983 Venipuncture Draw Fee 09:41:00 CDT CPT-10274 Calcium - LAB USE ONLY 17:25:11 CDT CPT-J0897 Prolia 60 mg 15:10:59 CDT CPT-92684 Abx/Therapy Injection 15:10:59 CDT CPT-G0439 Subsequent Annual Wellness Exam 14:29:19 CDT CPT-91920 Venipuncture Draw Fee 10:59:04 CDT CPT-47144 CMP - LAB USE ONLY 10:59:04 CDT CPT-57933 CBC with Diff - LAB USE ONLY 10:59:03 CDT 2 CPT-J0897 Prolia 60 mg 15:46:54 WOOD FUEL PELLETIZER CPT-25708 Abx/Therapy Injection 15:46:54 WOOD FUEL PELLETIZER CPT-50696 Microalbumin - LAB USE ONLY 09:41:32 WOOD FUEL PELLETIZER 20 23/01/15 CPT-23763 Free T4 - LAB USE ONLY 09:41:32 WOOD FUEL PELLETIZER CPT-17101 TSH - LAB USE ONLY 09:41:32 WOOD FUEL PELLETIZER CPT-40164 BMP - LAB USE ONLY 09:41:32 WOOD FUEL PELLETIZER CPT-42102 Venipuncture Draw Fee 09:41:32 WOOD FUEL PELLETIZER CPT-81490 First Vx - Ix admin for Medicare patients 11:19:30 CDT CPT-49696 Fluzone High-Dose Intramuscular Suspension 12/07 11:19:30 CDT CPT-J0897 Prolia 60 mg 14:55:42 CDT CPT-95177 Abx/Therapy Injection 14:55:42 CDT CPT-11644 Bone Density - XRAY USE ONLY 10:27:12 CDT 2 CPT-G0439 Subsequent Annual Wellness Exam 17:54:53 CDT CPT-79908 Foot, left, comp min 3V - XRAY USE ONLY 12:22:49 CDT CPT-G0009 Administration of Pneumococcal Vaccine 3 12:18:00 CDT CPT-24395 Pneumovax 23 Injection Injectable 25 MCG /0.5ML 12:18:00 CDT CPT-J0897 Prolia 60 mg 14:14:16 WOOD FUEL PELLETIZER CPT-24910 Abx/Therapy Injection 14:14:15 WOOD FUEL PELLETIZER CPT-11574 Lipid - LAB USE ONLY 10:01:52 WOOD FUEL PELLETIZER 2 CPT-45270 Calcium - LAB USE ONLY 10:01:51 WOOD FUEL PELLETIZER CPT-45258 Venipuncture Draw Fee 10:01:51 WOOD FUEL PELLETIZER CPT-LR Lesion Removal 16:22:01 WOOD FUEL PELLETIZER CPT-79716 TSH - LAB USE ONLY 14:26:02 CDT CPT-02509 CMP - LAB USE ONLY 14:26:01 CDT CPT-96454 CBC with Diff - LAB USE ONLY 14:26:01 CDT 2 CPT-28976 Venipuncture Draw Fee 14:26:01 CDT CPT-89821 First Vx - Ix admin for Medicare patients 13:27:08 CDT CPT-87507 Fluzone High-Dose Intramuscular Suspension 11/26 13:27:08 CDT CPT-G0438 Initial Annual Wellness Exam 14:19:57 CD T CPT-G0009 Administration of Pneumococcal Vaccine 9 11:36:25 CDT CPT-29160 Prevnar 13 Intramuscular Suspension 1 1:36:25 CDT CPT-90934 Prevnar 13 Intramuscular Suspension 1 0:40:58 CDT CPT-J0897 Prolia 60 mg 10:37:16 CDT CPT-40361 Abx/Therapy Injection 10:37:16 CDT CPT-J0897 Prolia 60 mg 16:09:34 WOOD FUEL PELLETIZER CPT-J0897 Prolia 60 mg 11:10:35 WOOD FUEL PELLETIZER CPT-84194 Abx/Therapy Injection 11:10:35 WOOD FUEL PELLETIZER CPT-000 Give Appropriate Flu Vaccine 17:01:15 WOOD FUEL PELLETIZER 2 CPT-64228 Fluzone High Dose (65+) 15:03:08 WOOD FUEL PELLETIZER 02/15 CPT-78584 Immunization Single Admin 15:03:08 WOOD FUEL PELLETIZER 2014 CPT-OV Office Visit 15:58:06 CDT CPT-J0897 Prolia 60 mg 08:45:38 CDT CPT-13352 Abx/Therapy Injection 08:45:38 CDT CPT-J3420 Vitamin B12 1000mcg (Cyanocobalamin) 09:26:20 WOOD FUEL PELLETIZER CPT-53081 Abx/Therapy Injection 09:26:20 WOOD FUEL PELLETIZER CPT-J3420 Vitamin B12 1000mcg (Cyanocobalamin) 09:44:40 WOOD FUEL PELLETIZER CPT-40607 Abx/Therapy Injection 09:44:40 WOOD FUEL PELLETIZER CPT-J3420 Vitamin B12 1000mcg (Cyanocobalamin) 09:15:54 WOOD FUEL PELLETIZER CPT-70844 Abx/Therapy Injection 09:15:54 WOOD FUEL PELLETIZER CPT-J3420 Vitamin B12 1000mcg (Cyanocobalamin) 09:46:44 WOOD FUEL PELLETIZER CPT-52206 Abx/Therapy Injection 09:46:44 WOOD FUEL PELLETIZER CPT-J3420 Vitamin B12 1000mcg (Cyanocobalamin) 09:47:34 WOOD FUEL PELLETIZER CPT-85375 Abx/Therapy Injection 09:47:34 WOOD FUEL PELLETIZER CPT-J3420 Vitamin B12 1000mcg (Cyanocobalamin) 14:35:50 WOOD FUEL PELLETIZER CPT-J3420 Vitamin B12 1000mcg (Cyanocobalamin) 09:25:05 WOOD FUEL PELLETIZER CPT-57055 Abx/Therapy Injection 09:25:05 WOOD FUEL PELLETIZER CPT-G0008 Administration of Influenza Virus Vaccine 13:36:47 CDT CPT-70126 Fluzone High-Dose Intramuscular Suspension 11/15 13:36:47 CDT CPT-J0897 Prolia 60 mg 08:50:41 CDT CPT-58992 Abx/Therapy Injection 08:50:41 CDT CPT-31147 Bone Density 12:06:12 CDT CPT-23285 Bone Density 08:54:40 CDT CPT-OV Office Visit 15:37:02 CDT CPT-60659 Postop F/U Visit 15:47:49 CDT CPT-19847 Postop F/U Visit 15:21:02 CDT CPT-[facility] Transitional Care Mgmt-High 07:52:27 CDT 20 20/06/01 CPT-59383 Venipuncture Draw Fee 13:51:18 CDT CPT-83970 Venipuncture Draw Fee 10:14:55 [employer] CPT-87046 Venipuncture Draw Fee 13:39:45 [employer] CPT-OV Office Visit 15:11:22 [employer] CPT-92651 Venipuncture Draw Fee 09:20:49 [employer] CPT-08995 Venipuncture Draw Fee 16:52:15 [employer] CPT-22845 Venipuncture Draw Fee 10:37:24 [employer] CPT-94856 Venipuncture Draw Fee 08:21:21 [employer] CPT-08328 Venipuncture Draw Fee 08:30:20 [employer] CPT-39087 Venipuncture Draw Fee 14:53:21 [employer] CPT-26701 Venipuncture Draw Fee 09:40:56 [employer] CPT-36531 Venipuncture Draw Fee 10:30:47 [employer] CPT-62362 Venipuncture Draw Fee 10:46:17 [employer] CPT-20001 Venipuncture Draw Fee 11:12:45 [employer] CPT-11382 Venipuncture Draw Fee 09:53:33 [employer] CPT-83351 Venipuncture Draw Fee 11:53:51 [employer] CPT-67742 Venipuncture Draw Fee 10:33:50 [employer] CPT-74386 Venipuncture Draw Fee 10:05:01 [employer] CPT-65318 Venipuncture Draw Fee 14:32:52 [employer] CPT-63244 Venipuncture Draw Fee 09:46:13 [employer] CPT-55917 Venipuncture Draw Fee 11:34:27 [employer] CPT-14099 Venipuncture Draw Fee 13:17:16 [employer] CPT-38642 Venipuncture Draw Fee 12:05:39 CDT CPT-72763 Venipuncture Draw Fee 12:49:12 CDT CPT-29515 Venipuncture Draw Fee 12:37:18 CDT CPT-52213 Venipuncture Draw Fee 10:57:11 CDT CPT-12971 Venipuncture Draw Fee 13:47:40 CDT CPT-41413 Venipuncture Draw Fee 10:02:17 CDT CPT-09021 TB Tubersol 17:32:32 CDT CPT-OV Office Visit 16:21:53 CDT CPT-OV Office Visit 15:49:22 CDT CPT-OV Office Visit 17:16:31 CDT CPT-OV Office Visit 10:43:31 CDT
--- OUTSIDE RECORDS SUMMARY | 2019-02-09 11:43 | XMS REPORT | Clinical Summary ---
Author Author Admin, Florecita Munoz Organization [facility] Address Unknown Phone Unavailable Allergies, Adverse Reactions, [...] system, NEC FH Stroke V17.1 Active Adam aYtes MD Family history of stroke (cerebrovascular) Colon [...] Sebaceous cyst, scalp 706.2 Resolved Kylie Yokum GROUP UNDERWRITER Sebaceous cyst Cervical lymphadenopathy, anterior, left 785.6 Resolv ed Kylie Yokum GROUP UNDERWRITER Enlargement of lymph nodes Need for prophylactic vaccination and inoculation against in fluenza V04.81 Resolved Adam Yates MD Need for prophylactic vaccination and inoculation against influenza Preventive health care V70.0 Resolved Kylie Lundu m GROUP UNDERWRITER Routine general medical examination at a health care facility Thyroid nodule, left 241.0 Resolved Selena Yates MD Nontoxic uninodular goiter Screening mammogram V76.12 Resolved Kylie Yokum A PRN Other screening mammogram Mandy 706.2 Resolved Kylie Yokum GROUP UNDERWRITER Sebaceous cyst Colon cancer, ascending 153.6 Resolved Kylie Yok um GROUP UNDERWRITER Malignant neoplasm of ascending colon Foot pain, left 729.5 Resolved Kylie Yokum GROUP UNDERWRITER Pain in limb Splinter 919.6 Resolved Kylie Yokum GROUP UNDERWRITER Superficial foreign body (splinter) of other, multiple, and unspecified sites, without major open wound and without mention of infection Rash 782.1 Resolved Kylie Yokum GROUP UNDERWRITER Rash and other nonspecific skin eruption Cyst 706.2 Resolved Kylie Yokum GROUP UNDERWRITER Sebaceous cyst Body Mass Index 23.0-23.9 Adult Refinement 2017 Kylie Yokum GROUP UNDERWRITER Body Mass Index between 19-24, adult BMI [...] RIGHT LOWER QUADRANT ICD-789.03 Inactive Kina Joshua GROUP UNDERWRITER ADENOCARCINOMA, COLON, 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 Dick Yates MD ABDOMINAL PAIN, GENERALIZED ICD-789.07 Inactive Hope Benavidez MD PhD FEVER UNSPECIFIED ICD-780.60 Inactive Hope cohn MD PhD UNSPECIFIED VENOUS INSUFFICIENCY ICD-459.81 [place] ctive Adam Yates MD ADENOCARCINOMA, 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 Inac tive Hope Benavidez MD PhD Hyperkalemia ICD-276.7 Inactive Hope Benavidez MD PhD GERD ICD-530.81 Inactive Kylie Yanet GROUP UNDERWRITER 2015 Health maintenance exam ICD-V70.0 Bam Yates MD Anemia ICD-285.9 Inactive Kylie Escalonapari GROUP UNDERWRITER 07/24 Hypomagnesemia ICD-275.2 Inactive Kylie Holt GROUP UNDERWRITER Weakness ICD-780.79 Inactive Hope Benavidez MD P [...] cyst, scalp ICD-706.2 Inactive Tracy hi Yokum GROUP UNDERWRITER Cervical lymphadenopathy, anterior, left ICD-785.6 Inactive Kylie Yokum GROUP UNDERWRITER Need for prophylactic vaccination and inoculation against in fluenza ICD-V04.81 Inactive Adam Yates MD Preventive health care ICD-V70.0 Inactive Ka thi Yokum GROUP UNDERWRITER Thyroid nodule, left ICD-241.0 Inactive Selena Yates MD Screening mammogram ICD-V76.12 Inactive Kylie Yokum GROUP UNDERWRITER Mandy ICD-706.2 Inactive Kylie Yokum GROUP UNDERWRITER 07/20 Colon cancer, ascending ICD-153.6 Inactive K athi Yokum GROUP UNDERWRITER Foot pain, left ICD-729.5 Inactive Kylie Yokum GROUP UNDERWRITER Splinter ICD-919.6 Inactive Kylie Yokum GROUP UNDERWRITER 2017 Rash ICD-782.1 Inactive Kylie Yokum GROUP UNDERWRITER 07/25 Cyst ICD-706.2 Inactive Kylie Yokum GROUP UNDERWRITER 08/11 Unspecified fall, initial encounter ICD-E888.9 Inactive Kylie Yokum GROUP UNDERWRITER Eye pain, left ICD-379.91 Inactive Kylie Holt [...] other medications for hypothyroidism. LEVOTHYROX INE SODIUM 78704334279 Active Kylie Holt APRN Active VOLTAREN 1 % TRANSDERMAL GEL apply 2 grams q 6-8 hour to left arm as needed for pain DICLOFENAC SODIUM 31302910261 Active Kylie Holt APR N Active IMODIUM A-D 2 MG ORAL TABLET 1 tablet twice a day LOPERAMIDE HCL 80172844641 Active Kylie Holt APRN Active COQ10 100 MG ORAL CAPSULE 1 daily COENZYME Q10 181571 63135 Active LETY [place] Active VITAMIN D3 2000 UNIT ORAL CAPSULE Melaleuca-One daily CHOLECALCIFEROL 35591094153 Active Kylie Holt APRN Active PROBIOTIC DAILY ORAL CAPSULE Take one daily PROBIO TIC PRODUCT 84195348495 Active Kylie Holt APRN Active IRON 325 (65 Fe) MG ORAL TABLET 1 every other day FERROUS SULFATE 79956066420 No Longer Active Kylie Yokum GROUP UNDERWRITER Active FLORANEX ORAL PACKET 1 pack three times daily, for bowel health LACTOBACILLUS 00628481584 No Longer Active Kylie Holt GROUP UNDERWRITER Active LOMOTIL 2.5-0.025 MG ORAL TABLET 1 tab by mouth prn 20 23/10/23 DIPHENOXYLATE-ATROPINE 14688538192 No Longer Active Kylie Lundum GROUP UNDERWRITER Active MAGNESIUM GLUCONATE 250 MG ORAL TABLET 1 tab tid 23/10/23 MAGNESIUM GLUCONATE 97941492164 No Longer Active Kylie Lundum GROUP UNDERWRITER Active CYANOCOBALAMIN 1000 MCG/ML INJECTION SOLUTION 1 injection ev ruben 2 weeks CYANOCOBALAMIN 37704563103 No Longer Active Kylie Lund um GROUP UNDERWRITER Active ATENOLOL 25 MG ORAL TABLET 1/2 pill by mouth daily, fo r headaches, blood pressure ATENOLOL 30296998032 Active Kylie Lundum GROUP UNDERWRITER Active PROPRANOLOL HCL 80 MG ORAL TABLET 1 tab tue. and thur. PROPRANOLOL HCL 93078008635 No Longer Active Hope Benavidez MD PhD A ctive VITAMIN D3 4000 IU 1 tab 3 times daily VITAMIN D3 4000 IU No Longer Active Hope Benavidez MD PhD Active BACTRIM DS 800-160 MG ORAL TABLET 1 pill by mouth twice claudio y, for UTI SULFAMETHOXAZOLE-TRIMETHOPRIM 33022677059 No Longer Active Hope Benavidez MD PhD Active PROLIA 60 MG/ML SUBCUTANEOUS SOLUTION 1 shot every 6 months for osteoprosis DENOSUMAB 62190745833 Active Hope Benavidez MD PhD Active CALCIUM + D + K 750-500-40 MG-UNT-MCG ORAL TABLET 1 tab by [place]usta [place] twice daily CALCIUM-VITAMIN D-VITAMIN K 13907029263 Active Hope valdez MD PhD Active DAILY VALUE MULTIVITAMIN ORAL TABLET 1 tab by mouth twice daily 201 05/16/14 MULTIPLE VITAMIN 64427996084 Active Hope Benavidez MD PhD Acti ve FISH OIL 306 MG CAPS 1 tab by mouth three times daily OMEGA-3 FATTY ACIDS 45043171530 Active Hope Benavidez MD PhD Active LUTEIN 10 MG ORAL TABLET 1 tab daily LUTEIN 18639899 408 Active Hope Benavidez MD PhD Active TRIAMTERENE-HCTZ 37.5-25 MG ORAL TABLET 1 tab by mouth daily 10/22 TRIAMTERENE-HCTZ 59307336660 Active Kylie Holt GROUP UNDERWRITER Active CYCLOBENZAPRINE HCL 10 MG ORAL TABLET 1 tablet by mout h three times daily as needed for headaches CYCLOBENZAPRINE HCL 94182599992 No Longer Active Adam Yates MD Active OMEPRAZOLE 20 MG ORAL CAPSULE DELAYED RELEASE 1 tablet by mo [place] daily for GERD OMEPRAZOLE 39229042942 No Longer Active Adam Yates MD Active ZOFRAN 8 MG ORAL TABLET 1 tab by mouth every 12 hours prn 4 ONDANSETRON HCL 60334020443 No Longer Active Adam Yates MD Active PHENADOZ 25 MG RECTAL SUPPOSITORY 1 every 4 hrs. PRN 2 PROMETHAZINE HCL 08218203377 No Longer Active Adam Yates MD A ctive POTASSIUM CHLORIDE 20 MEQ ORAL PACKET by mouth twice a day prn 2 POTASSIUM CHLORIDE 89211768824 No Longer Active Adam Carpenter MD Active PROMETHAZINE HCL 25 MG ORAL TABLET 1 Q. 4 hr. PRN PROMETHAZINE HCL 07890109850 No Longer Active Adam Yates MD Active INNOPRAN XL 120 MG ORAL CAPSULE EXTENDED RELEASE 24 HO UR Take one by mouth daily PROPRANOLOL HCL SR BEADS 76546249539 No Longer Active Adam Yates MD Active FLAGYL 500 MG ORAL TABLET 1 pill by mouth three times daily, for diarrhea METRONIDAZOLE 90876436773 No Longer Active Hope landers MD PhD Active DYAZIDE 37.5-25 MG ORAL CAPSULE 1 qd TRIA MTERENE-HCTZ 38716445585 No Longer Active Hope Benavidez MD PhD Active PROZAC 20 MG ORAL CAPSULE 1 q d FLUOXETINE HCL 60552295709 No Longer Active Hope Benavidez MD PhD Active SIMVASTATIN 40 MG ORAL TABLET 1 qd SIMVAS TATIN 10159073114 No Longer Active Adam Yates MD Active MELOXICAM 15 MG ORAL TABLET 1 qd MELOXICAM 87574490596 No Longer Active Adam Yates MD Active EXCEDRIN EXTRA STRENGTH 250-250-65 MG ORAL TABLET 1-2 q6h TN N headache [id number] 97618872981 Active Hope Benavidez MD PhD Active FLAGYL 500 MG ORAL TABLET 1 qid METRONIDAZOL E 03044139995 No Longer Active Adam Yates MD Active LEVAQUIN 750 MG ORAL TABLET 1 qd LEVOFLOXAC IN 63409471770 No Longer Active Adam Yates MD Active ADULT ASPIRIN LOW STRENGTH 81 MG ORAL TABLET DISINTEGRATING 1 qd ASPIRIN 15477205359 Active Hope Benavidez MD PhD Active LEVAQUIN 750 MG ORAL TABLET 1 qd LEVAQUIN 750 MG ORAL TABLET 974881 LEVOFLOXACIN Inactive FLAGYL 500 MG ORAL TABLET 1 qid FLAGYL 500 MG ORAL TABLET 474860 METRONIDAZOLE Inactive MELOXICAM 15 MG ORAL TABLET 1 qd MELOXICAM 15 MG ORAL TABLET 161147 MELOXICAM Inactive SIMVASTATIN 40 MG ORAL TABLET 1 qd SIMVASTATIN 40 MG ORAL TABLET 109362 SIMVASTATIN Inactive PROZAC 20 MG ORAL CAPSULE 1 q d PROZAC 20 MG ORAL CAPSULE 991411 FLUOXETINE HCL Inactive DYAZIDE 37.5-25 MG ORAL CAPSULE 1 qd 5 DYAZIDE 37.5-25 MG ORAL CAPSULE 308426 TRIAMTERENE-HCTZ Inactive INNOPRAN XL 120 MG ORAL CAPSULE EXTENDED RELEASE 24 HO UR Take one by mouth daily INNOPRAN XL 120 MG ORAL CAPSULE EXTENDED RELEASE 24 HOUR PROPRANOLOL HCL SR BEADS Inactive PROMETHAZINE HCL 25 MG ORAL TABLET 1 Q. 4 hr. PRN 2013 PROMETHAZINE HCL 25 MG ORAL TABLET 717072 PROMETHAZINE HCL Inactive POTASSIUM CHLORIDE 20 MEQ ORAL PACKET by mouth twice a day prn 2 POTASSIUM CHLORIDE 20 MEQ ORAL PACKET 1910730 POTASSIUM CHLORIDE Inactive PHENADOZ 25 MG RECTAL SUPPOSITORY 1 every 4 hrs. PRN 2 PHENADOZ 25 MG RECTAL SUPPOSITORY 355309 PROMETHAZINE HCL Inactive ZOFRAN 8 MG ORAL TABLET 1 tab by mouth every 12 hours prn 4 ZOFRAN 8 MG ORAL TABLET 532779 ONDANSETRON HCL Inactive OMEPRAZOLE 20 MG ORAL CAPSULE DELAYED RELEASE 1 tablet by mo uth daily for GERD OMEPRAZOLE 20 MG ORAL CAPSULE DELAYED RELEASE 19 8051 OMEPRAZOLE Inactive CYCLOBENZAPRINE HCL 10 MG ORAL TABLET 1 tablet by mout h three times daily as needed for headaches CYCLOBENZAPRINE HCL 10 MG ORAL TABLET 948498 CYCLOBENZAPRINE HCL Inactive VITAMIN D3 4000 IU 1 tab 3 times daily VITAMIN D3 4000 IU Inactive PROPRANOLOL HCL 80 MG ORAL TABLET 1 tab tue. and thur. PROPRANOLOL HCL 80 MG ORAL TABLET 680203 PROPRANOLOL HCL Inacti ve CYANOCOBALAMIN 1000 MCG/ML INJECTION SOLUTION 1 injection ev ruben 2 weeks CYANOCOBALAMIN 1000 MCG/ML INJECTION SOLUTION 30 9594 CYANOCOBALAMIN Inactive MAGNESIUM GLUCONATE 250 MG ORAL TABLET 1 tab tid 23/10/23 MAGNESIUM GLUCONATE 250 MG ORAL TABLET 985416 MAGNESIUM GLUCONATE Inactive LOMOTIL 2.5-0.025 MG ORAL TABLET 1 tab by mouth prn 20 23/10/23 LOMOTIL 2.5-0.025 MG ORAL TABLET 2751956 DIPHENOXYLATE-ATROPINE Inac tive FLORANEX ORAL PACKET 1 pack three times daily, for bowel health FLORANEX ORAL PACKET 84980747606 LACTOBACILLUS Inactive IRON 325 (65 Fe) MG ORAL TABLET 1 every other day 2015 IRON 325 (65 Fe) MG ORAL TABLET 698228 FERROUS SULFATE Inactive FLAGYL 500 MG ORAL TABLET 1 pill by mouth three times daily, for diarrhea FLAGYL 500 MG ORAL TABLET 468852 METRONIDAZOLE I nactive BACTRIM DS 800-160 MG ORAL TABLET 1 pill by mouth twice claudio y, for UTI BACTRIM DS 800-160 MG ORAL TABLET 782296 SULFAMETHOXAZOLE-TRIMETHOPRIM Inactive Advance Directives Directive Description Start [...] ... - Chemistry sodium, serum 141 mmol/L 565-856 9559/01/10 potassium, serum 3.7 mmol/L 3.5-5.2 chloride, serum 101 mmol/L 98-107 carbon dioxide, venous blood 31.0 mmol/L 21.0-32 .0 blood glucose 96 mg/dL 65-95 calcium, serum 9.5 mg/dL 8.5-10.1 urea nitrogen, blood 21 mg/dL 7-18 creatinine, serum 1.40 mg/dL 0.60-1.30 Estimated Glomerular Filtration Rate (calc) 39 (?) mL/min/1.73m2 = OR > 60 mL/min cholesterol, serum 211 mg/dL 587-238 2362/01/10 triglyceride, serum, fasting 77 mg/dL 30-200 HDL [...] 0.82 ng/dL 0.59-1.17 sodium, serum 142 mmol/L 065-234 2883/04/16 carbon dioxide, venous blood 30.0 mmol/L 21.0-32 [...] - Chelle radha sodium, serum 142 mmol/L 975-943 7919/11/02 potassium, serum 3.4 mmol/L 3.5-5.2 chloride, serum [...] 0.59-1.17 Encounters Code Encounter Date Provider Facility CPT-24104 [id number] Vst-Est Level III 09:15:19 CDT Fiorella Holt [facility] CPT-65764 Level 4 Est. Patient 15:35:24 NECKTIE STITCHER Adam Yates MD [facility] CPT-42546 Level 3 New Patient 12:08:54 NECKTIE STITCHER Adam Yates MD [facility] CPT-58494 [id number] Vst-Est Level IV 19:48:30 NECKTIE STITCHER [facility] 25746-[id number] Vst-Est Level III 14:29:19 CDT Fiorella Holt [facility] CPT-20701 Level 2 Est. Patient 14:58:26 CDT Kylie boyd [facility] [place] CPT-27160 Level 3 Est. Patient 08:15:24 NECKTIE STITCHER [facility] Level 2 Est. Patient 14:27:16 NECKTIE STITCHER Kylie boyd [facility] [place] CPT-00377 Level 3 Est. Patient 17:54:48 CDT Kylie boyd [facility] [place] CPT-77400 Level 3 Est. Patient 16:26:30 CDT Kina blackmon [facility] CPT-99044 Level 3 New Patient 16:22:01 NECKTIE STITCHER Adam Yates MD [facility] CPT-40009 Level 4 Est. Patient 17:00:48 CDT Kylie boyd [facility] [place] CPT-96104 Level 3 Est. Patient 13:15:54 CDT Kylie boyd [facility] CPT-23537 Level 3 Est. Patient 09:10:11 CDT Kylie boyd [facility] CPT-76000 Level 4 Est. Patient 12:08:30 NECKTIE STITCHER Hope cohn MD PhD [facility] CPT-84826 Level 4 Est. Patient 19:08:42 NECKTIE STITCHER Hope cohn MD PhD [facility] CPT-84388 Level 4 Est. Patient 20:04:51 CDT Hope cohn MD PhD [facility] CPT-07999 Level 3 New Patient 01:46:11 NECKTIE STITCHER Hope landers MD PhD [facility] Procedures Code Procedure Name Date Entry Date Standard Desc ription CPT-31138 Free T4 - LAB USE ONLY 11:44:37 CDT CPT-52592 TSH - LAB USE ONLY 11:44:37 CDT CPT-70420 Venipuncture Draw Fee 11:44:37 CDT CPT-J0897 Prolia 60 mg 10:36:55 CDT CPT-63976 Abx/Therapy Injection 10:36:55 CDT CPT-55857 Venipuncture Draw Fee 13:34:11 CDT CPT-G0439 Subsequent Annual Wellness Exam 09:15:19 CDT CPT-34661 Postop F/U Visit 15:45:41 CDT CPT-46775 Sono Soft Tissue Head and Neck - XRAY US E ONLY 11:56:06 NECKTIE STITCHER CPT-73039 Abx/Therapy Injection 09:40:08 NECKTIE STITCHER CPT-J0897 Prolia 60 mg 09:40:08 NECKTIE STITCHER CPT-18506 First Vx - Ix admin for Medicare patients 02/08 10:02:45 CDT CPT-24236 Fluzone Quadrivalent Intramuscular Suspe nsion 0.5 ML 10:02:45 CDT CPT-93897 Magnesium - LAB USE ONLY 09:41:00 CDT 12/09 CPT-33704 Renal Panel - LAB USE ONLY 09:41:00 CDT 201 09/17/01 CPT-80752 Venipuncture Draw Fee 09:41:00 CDT CPT-19168 Calcium - LAB USE ONLY 17:25:11 CDT CPT-J0897 Prolia 60 mg 15:10:59 CDT CPT-02934 Abx/Therapy Injection 15:10:59 CDT CPT-G0439 Subsequent Annual Wellness Exam 14:29:19 CDT CPT-91152 Venipuncture Draw Fee 10:59:04 CDT CPT-29940 CMP - LAB USE ONLY 10:59:04 CDT CPT-39485 CBC with Diff - LAB USE ONLY 10:59:03 CDT 2 CPT-J0897 Prolia 60 mg 15:46:54 NECKTIE STITCHER CPT-89647 Abx/Therapy Injection 15:46:54 NECKTIE STITCHER CPT-60646 Microalbumin - LAB USE ONLY 09:41:32 NECKTIE STITCHER 20 23/01/15 CPT-08542 Free T4 - LAB USE ONLY 09:41:32 NECKTIE STITCHER CPT-46220 TSH - LAB USE ONLY 09:41:32 NECKTIE STITCHER CPT-14810 BMP - LAB USE ONLY 09:41:32 NECKTIE STITCHER CPT-43818 Venipuncture Draw Fee 09:41:32 NECKTIE STITCHER CPT-70772 First Vx - Ix admin for Medicare patients 11:19:30 CDT CPT-55209 Fluzone High-Dose Intramuscular Suspension 12/07 11:19:30 CDT CPT-J0897 Prolia 60 mg 14:55:42 CDT CPT-45863 Abx/Therapy Injection 14:55:42 CDT CPT-69413 Bone Density - XRAY USE ONLY 10:27:12 CDT 2 CPT-G0439 Subsequent Annual Wellness Exam 17:54:53 CDT CPT-03926 Foot, left, comp min 3V - XRAY USE ONLY 2017/06/ 13 12:22:49 CDT CPT-G0009 Administration of Pneumococcal Vaccine 3 12:18:00 CDT CPT-15855 Pneumovax 23 Injection Injectable 25 MCG /0.5ML 12:18:00 CDT CPT-J0897 Prolia 60 mg 14:14:16 NECKTIE STITCHER CPT-16025 Abx/Therapy Injection 14:14:15 NECKTIE STITCHER CPT-93988 Lipid - LAB USE ONLY 10:01:52 NECKTIE STITCHER 2 CPT-20133 Calcium - LAB USE ONLY 10:01:51 NECKTIE STITCHER CPT-33839 Venipuncture Draw Fee 10:01:51 NECKTIE STITCHER CPT-LR Lesion Removal 16:22:01 NECKTIE STITCHER CPT-89550 TSH - LAB USE ONLY 14:26:02 CDT CPT-52981 CMP - LAB USE ONLY 14:26:01 CDT CPT-76174 CBC with Diff - LAB USE ONLY 14:26:01 CDT 2 CPT-33123 Venipuncture Draw Fee 14:26:01 CDT CPT-63924 First Vx - Ix admin for Medicare patients 13:27:08 CDT CPT-92953 Fluzone High-Dose Intramuscular Suspension 11/26 13:27:08 CDT CPT-G0438 Initial Annual Wellness Exam 14:19:57 CD T CPT-G0009 Administration of Pneumococcal Vaccine 9 11:36:25 CDT CPT-39245 Prevnar 13 Intramuscular Suspension 1 1:36:25 CDT CPT-35444 Prevnar 13 Intramuscular Suspension 1 0:40:58 CDT CPT-J0897 Prolia 60 mg 10:37:16 CDT CPT-12651 Abx/Therapy Injection 10:37:16 CDT CPT-J0897 Prolia 60 mg 16:09:34 NECKTIE STITCHER CPT-J0897 Prolia 60 mg 11:10:35 NECKTIE STITCHER CPT-82656 Abx/Therapy Injection 11:10:35 NECKTIE STITCHER CPT-000 Give Appropriate Flu Vaccine 17:01:15 NECKTIE STITCHER 2 CPT-44895 Fluzone High Dose (65+) 15:03:08 NECKTIE STITCHER 02/15 CPT-25951 Immunization Single Admin 15:03:08 NECKTIE STITCHER 2014 CPT-OV Office Visit 15:58:06 CDT CPT-J0897 Prolia 60 mg 08:45:38 CDT CPT-92783 Abx/Therapy Injection 08:45:38 CDT CPT-J3420 Vitamin B12 1000mcg (Cyanocobalamin) 09:26:20 NECKTIE STITCHER CPT-33862 Abx/Therapy Injection 09:26:20 NECKTIE STITCHER CPT-J3420 Vitamin B12 1000mcg (Cyanocobalamin) 09:44:40 NECKTIE STITCHER CPT-84451 Abx/Therapy Injection 09:44:40 NECKTIE STITCHER CPT-J3420 Vitamin B12 1000mcg (Cyanocobalamin) 09:15:54 NECKTIE STITCHER CPT-97390 Abx/Therapy Injection 09:15:54 NECKTIE STITCHER CPT-J3420 Vitamin B12 1000mcg (Cyanocobalamin) 09:46:44 NECKTIE STITCHER CPT-76678 Abx/Therapy Injection 09:46:44 NECKTIE STITCHER CPT-J3420 Vitamin B12 1000mcg (Cyanocobalamin) 09:47:34 NECKTIE STITCHER CPT-07173 Abx/Therapy Injection 09:47:34 NECKTIE STITCHER CPT-J3420 Vitamin B12 1000mcg (Cyanocobalamin) 14:35:50 NECKTIE STITCHER CPT-J3420 Vitamin B12 1000mcg (Cyanocobalamin) 09:25:05 NECKTIE STITCHER CPT-48291 Abx/Therapy Injection 09:25:05 NECKTIE STITCHER CPT-G0008 Administration of Influenza Virus Vaccine 13:36:47 CDT CPT-66019 Fluzone High-Dose Intramuscular Suspension 11/15 13:36:47 CDT CPT-J0897 Prolia 60 mg 08:50:41 CDT CPT-19766 Abx/Therapy Injection 08:50:41 CDT CPT-72825 Bone Density 12:06:12 CDT CPT-69465 Bone Density 08:54:40 CDT CPT-OV Office Visit 15:37:02 CDT CPT-97731 Postop F/U Visit 15:47:49 CDT CPT-49938 Postop F/U Visit 15:21:02 CDT CPT-TCM Transitional Care Mgmt-High 07:52:27 CDT 20 20/06/01 CPT-68603 Venipuncture Draw Fee 13:51:18 CDT CPT-67586 Venipuncture Draw Fee 10:14:55 NECKTIE STITCHER CPT-73001 Venipuncture Draw Fee 13:39:45 NECKTIE STITCHER CPT-OV Office Visit 15:11:22 NECKTIE STITCHER CPT-47220 Venipuncture Draw Fee 09:20:49 NECKTIE STITCHER CPT-47683 Venipuncture Draw Fee 16:52:15 NECKTIE STITCHER CPT-44411 Venipuncture Draw Fee 10:37:24 NECKTIE STITCHER CPT-12523 Venipuncture Draw Fee 08:21:21 NECKTIE STITCHER CPT-04720 Venipuncture Draw Fee 08:30:20 NECKTIE STITCHER CPT-51298 Venipuncture Draw Fee 14:53:21 NECKTIE STITCHER CPT-27918 Venipuncture Draw Fee 09:40:56 NECKTIE STITCHER CPT-91199 Venipuncture Draw Fee 10:30:47 NECKTIE STITCHER CPT-72228 Venipuncture Draw Fee 10:46:17 NECKTIE STITCHER CPT-09580 Venipuncture Draw Fee 11:12:45 NECKTIE STITCHER CPT-73881 Venipuncture Draw Fee 09:53:33 NECKTIE STITCHER CPT-15656 Venipuncture Draw Fee 11:53:51 NECKTIE STITCHER CPT-79541 Venipuncture Draw Fee 10:33:50 NECKTIE STITCHER CPT-81352 Venipuncture Draw Fee 10:05:01 NECKTIE STITCHER CPT-29234 Venipuncture Draw Fee 14:32:52 NECKTIE STITCHER CPT-49575 Venipuncture Draw Fee 09:46:13 NECKTIE STITCHER CPT-50859 Venipuncture Draw Fee 11:34:27 NECKTIE STITCHER CPT-96871 Venipuncture Draw Fee 13:17:16 NECKTIE STITCHER CPT-08376 Venipuncture Draw Fee 12:05:39 CDT CPT-06642 Venipuncture Draw Fee 12:49:12 CDT CPT-37264 Venipuncture Draw Fee 12:37:18 CDT CPT-95167 Venipuncture Draw Fee 10:57:11 CDT CPT-49524 Venipuncture Draw Fee 13:47:40 CDT CPT-03842 Venipuncture Draw Fee 10:02:17 CDT CPT-91395 TB Tubersol 17:32:32 CDT CPT-OV Office Visit 16:21:53 CDT CPT-OV Office Visit 15:49:22 CDT CPT-OV Office Visit 17:16:31 CDT CPT-OV Office Visit 10:43:31 CDT
--- OUTSIDE RECORDS SUMMARY | 2019-02-09 11:43 | XMS REPORT | Clinical Summary ---
Author Author Admin, Florecita Munoz Organization [email or web address] Address Unknown Phone Unavailable Allergies, Adverse Reactions, [...] Sebaceous cyst, scalp 706.2 Resolved Kylie Yokum [employer] Sebaceous cyst Cervical lymphadenopathy, anterior, left 785.6 Resolv ed Kylie Yokum [employer] Enlargement of lymph nodes Need for prophylactic vaccination and inoculation against in fluenza V04.81 Resolved Adam Yates MD Need for prophylactic vaccination and inoculation against influenza Preventive health care V70.0 Resolved Kylie Lundu m [employer] Routine general medical examination at a health care facility Thyroid nodule, left 241.0 Resolved Selena Yates MD Nontoxic uninodular goiter Screening mammogram V76.12 Resolved Kylie Yokum A PRN Other screening mammogram Mandy 706.2 Resolved Kylie Yokum [employer] Sebaceous cyst Colon cancer, ascending 153.6 Resolved Kylie Yok um [employer] Malignant neoplasm of ascending colon Foot pain, left 729.5 Resolved Kylie Yokum [employer] Pain in limb Splinter 919.6 Resolved Kylie Yokum [employer] Superficial foreign body (splinter) of other, multiple, and unspecified sites, without major open wound and without mention of infection Rash 782.1 Resolved Kylie Yokum [employer] Rash and other nonspecific skin eruption Cyst 706.2 Resolved Kylie Yokum [employer] Sebaceous cyst Body Mass Index 23.0-23.9 Adult Refinement 2017 Kylie Yokum [employer] Body Mass Index between 19-24, adult BMI [...] RIGHT LOWER QUADRANT ICD-789.03 Inactive Kina Joshua [employer] ADENOCARCINOMA, COLON, 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 Dick Yates MD ABDOMINAL PAIN, GENERALIZED ICD-789.07 Inactive Hope Benavidez MD PhD FEVER UNSPECIFIED ICD-780.60 Inactive Hope cohn MD PhD UNSPECIFIED VENOUS INSUFFICIENCY ICD-459.81 Morton ctive Adam Yates MD ADENOCARCINOMA, 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 Inac tive Hope Benavidez MD PhD Hyperkalemia ICD-276.7 Inactive Hope Benavidez MD PhD GERD ICD-530.81 Inactive Kylie Yanet [employer] 2015 Health maintenance exam ICD-V70.0 Bam Yates MD Anemia ICD-285.9 Inactive Kylie Escalonapari [employer] 07/24 Hypomagnesemia ICD-275.2 Inactive Kylie Holt [employer] Weakness ICD-780.79 Inactive Hope Benavidez MD P [...] cyst, scalp ICD-706.2 Inactive Tracy hi Yokum [employer] Cervical lymphadenopathy, anterior, left ICD-785.6 Inactive Kylie Yokum [employer] Need for prophylactic vaccination and inoculation against in fluenza ICD-V04.81 Inactive Adam Yates MD Preventive health care ICD-V70.0 Inactive Ka thi Yokum [employer] Thyroid nodule, left ICD-241.0 Inactive Selena Yates MD Screening mammogram ICD-V76.12 Inactive Kylie Yokum [employer] Mandy ICD-706.2 Inactive Kylie Yokum [employer] 07/20 Colon cancer, ascending ICD-153.6 Inactive K athi Yokum [employer] Foot pain, left ICD-729.5 Inactive Kylie Yokum [employer] Splinter ICD-919.6 Inactive Kylie Yokum [employer] 2017 Rash ICD-782.1 Inactive Kylie Yokum [employer] 07/25 Cyst ICD-706.2 Inactive Kylei Yokum [employer] 08/11 Unspecified fall, initial encounter ICD-E888.9 Inactive Kylie Yokum [employer] Eye pain, left ICD-379.91 Inactive Kylie Holt [...] other medications for hypothyroidism. LEVOTHYROX INE SODIUM 90658468713 Active Kylie Holt APRN Active VOLTAREN 1 % TRANSDERMAL GEL apply 2 grams q 6-8 hour to left arm as needed for pain DICLOFENAC SODIUM 93140306269 Active Kylie Holt APR N Active IMODIUM A-D 2 MG ORAL TABLET 1 tablet twice a day LOPERAMIDE HCL 65530073813 Active Kylie Holt APRN Active COQ10 100 MG ORAL CAPSULE 1 daily COENZYME Q10 631687 80112 Active LETY [place] Active VITAMIN D3 2000 UNIT ORAL CAPSULE [place]ale[place]-One daily CHOLECALCIFEROL 52026235467 Active Kylie Holt APRN Active PROBIOTIC DAILY ORAL CAPSULE Take one daily PROBIO TIC PRODUCT 73213969089 Active Kylie Holt APRN Active IRON 325 (65 Fe) MG ORAL TABLET 1 every other day FERROUS SULFATE 91818012172 No Longer Active Kylie Yokum [employer] Active FLORANEX ORAL PACKET 1 pack three times daily, for bowel health LACTOBACILLUS 64499976940 No Longer Active Kylie Holt [employer] Active LOMOTIL 2.5-0.025 MG ORAL TABLET 1 tab by mouth prn 20 23/10/23 DIPHENOXYLATE-ATROPINE 96679815800 No Longer Active Kylie Lundum [employer] Active MAGNESIUM GLUCONATE 250 MG ORAL TABLET 1 tab tid 23/10/23 MAGNESIUM GLUCONATE 19437100648 No Longer Active Kylie Lundum [employer] Active CYANOCOBALAMIN 1000 MCG/ML INJECTION SOLUTION 1 injection ev ruben 2 weeks CYANOCOBALAMIN 91261936824 No Longer Active Kylie Lund um [employer] Active ATENOLOL 25 MG ORAL TABLET 1/2 pill by mouth daily, fo r headaches, blood pressure ATENOLOL 26045619766 Active Kylie Lundum [employer] Active PROPRANOLOL HCL 80 MG ORAL TABLET 1 tab tue. and thur. PROPRANOLOL HCL 42673902716 No Longer Active Hope Benavidez MD PhD A ctive VITAMIN D3 4000 IU 1 tab 3 times daily VITAMIN D3 4000 IU No Longer Active Hope Benavidez MD PhD Active BACTRIM DS 800-160 MG ORAL TABLET 1 pill by mouth twice claudio y, for UTI SULFAMETHOXAZOLE-TRIMETHOPRIM 31359125739 No Longer Active Hope Benavidez MD PhD Active PROLIA 60 MG/ML SUBCUTANEOUS SOLUTION 1 shot every 6 months for osteoprosis DENOSUMAB 83303962240 Active Hope Benavidez MD PhD Active CALCIUM + D + K 750-500-40 MG-UNT-MCG ORAL TABLET 1 tab by augusta [place] twice daily CALCIUM-VITAMIN D-VITAMIN K 52426473578 Active Hope valdez MD PhD Active DAILY VALUE MULTIVITAMIN ORAL TABLET 1 tab by mouth twice daily 201 05/16/14 MULTIPLE VITAMIN 49349311410 Active Hope Benavidez MD PhD Acti ve FISH OIL 306 MG CAPS 1 tab by mouth three times daily OMEGA-3 FATTY ACIDS 47122678374 Active Hope Benavidez MD PhD Active LUTEIN 10 MG ORAL TABLET 1 tab daily LUTEIN 35933480 408 Active Hope Benavidez MD PhD Active TRIAMTERENE-HCTZ 37.5-25 MG ORAL TABLET 1 tab by mouth daily 10/22 TRIAMTERENE-HCTZ 08499476551 Active Kylie Holt [employer] Active CYCLOBENZAPRINE HCL 10 MG ORAL TABLET 1 tablet by mout h three times daily as needed for headaches CYCLOBENZAPRINE HCL 70548102714 No Longer Active Adam Yates MD Active OMEPRAZOLE 20 MG ORAL CAPSULE DELAYED RELEASE 1 tablet by mo [facility] daily for GERD OMEPRAZOLE 91534298113 No Longer Active Adam Yates MD Active ZOFRAN 8 MG ORAL TABLET 1 tab by mouth every 12 hours prn 4 ONDANSETRON HCL 59793618857 No Longer Active Adam Yates MD Active PHENADOZ 25 MG RECTAL SUPPOSITORY 1 every 4 hrs. PRN 2 PROMETHAZINE HCL 16302898963 No Longer Active Adam Yates MD A ctive POTASSIUM CHLORIDE 20 MEQ ORAL PACKET by mouth twice a day prn 2 POTASSIUM CHLORIDE 35569986920 No Longer Active Adam Carpenter MD Active PROMETHAZINE HCL 25 MG ORAL TABLET 1 Q. 4 hr. PRN PROMETHAZINE HCL 29504586977 No Longer Active Adam Yates MD Active INNOPRAN XL 120 MG ORAL CAPSULE EXTENDED RELEASE 24 HO UR Take one by mouth daily PROPRANOLOL HCL SR BEADS 66654803565 No Longer Active Adam Yates MD Active FLAGYL 500 MG ORAL TABLET 1 pill by mouth three times daily, for diarrhea METRONIDAZOLE 58207775267 No Longer Active Hope landers MD PhD Active DYAZIDE 37.5-25 MG ORAL CAPSULE 1 qd TRIA MTERENE-HCTZ 21937811019 No Longer Active Hope Benavidez MD PhD Active PROZAC 20 MG ORAL CAPSULE 1 q d FLUOXETINE HCL 06941310101 No Longer Active Hope Benavidez MD PhD Active SIMVASTATIN 40 MG ORAL TABLET 1 qd SIMVAS TATIN 28750931587 No Longer Active Adam Yates MD Active MELOXICAM 15 MG ORAL TABLET 1 qd MELOXICAM 56440598008 No Longer Active Adam Yates MD Active EXCEDRIN EXTRA STRENGTH 250-250-65 MG ORAL TABLET 1-2 q6h TN N headache [id number]-[id number] 48298696113 Active Hope Benavidez MD PhD Active FLAGYL 500 MG ORAL TABLET 1 qid METRONIDAZOL E 55433052016 No Longer Active Adam Yates MD Active LEVAQUIN 750 MG ORAL TABLET 1 qd LEVOFLOXAC IN 79878993383 No Longer Active Adam Yates MD Active ADULT ASPIRIN LOW STRENGTH 81 MG ORAL TABLET DISINTEGRATING 1 qd ASPIRIN 48683434100 Active Hope Benavidez MD PhD Active LEVAQUIN 750 MG ORAL TABLET 1 qd LEVAQUIN 750 MG ORAL TABLET 534832 LEVOFLOXACIN Inactive FLAGYL 500 MG ORAL TABLET 1 qid FLAGYL 500 MG ORAL TABLET 523625 METRONIDAZOLE Inactive MELOXICAM 15 MG ORAL TABLET 1 qd MELOXICAM 15 MG ORAL TABLET 959209 MELOXICAM Inactive SIMVASTATIN 40 MG ORAL TABLET 1 qd SIMVASTATIN 40 MG ORAL TABLET 418854 SIMVASTATIN Inactive PROZAC 20 MG ORAL CAPSULE 1 q d PROZAC 20 MG ORAL CAPSULE 278634 FLUOXETINE HCL Inactive DYAZIDE 37.5-25 MG ORAL CAPSULE 1 qd 5 DYAZIDE 37.5-25 MG ORAL CAPSULE 479589 TRIAMTERENE-HCTZ Inactive INNOPRAN XL 120 MG ORAL CAPSULE EXTENDED RELEASE 24 HO UR Take one by mouth daily INNOPRAN XL 120 MG ORAL CAPSULE EXTENDED RELEASE 24 HOUR PROPRANOLOL HCL SR BEADS Inactive PROMETHAZINE HCL 25 MG ORAL TABLET 1 Q. 4 hr. PRN 2013 PROMETHAZINE HCL 25 MG ORAL TABLET 819744 PROMETHAZINE HCL Inactive POTASSIUM CHLORIDE 20 MEQ ORAL PACKET by mouth twice a day prn 2 POTASSIUM CHLORIDE 20 MEQ ORAL PACKET 8740929 POTASSIUM CHLORIDE Inactive PHENADOZ 25 MG RECTAL SUPPOSITORY 1 every 4 hrs. PRN 2 PHENADOZ 25 MG RECTAL SUPPOSITORY 294155 PROMETHAZINE HCL Inactive ZOFRAN 8 MG ORAL TABLET 1 tab by mouth every 12 hours prn 4 ZOFRAN 8 MG ORAL TABLET 719088 ONDANSETRON HCL Inactive OMEPRAZOLE 20 MG ORAL CAPSULE DELAYED RELEASE 1 tablet by mo uth daily for GERD OMEPRAZOLE 20 MG ORAL CAPSULE DELAYED RELEASE 19 8051 OMEPRAZOLE Inactive CYCLOBENZAPRINE HCL 10 MG ORAL TABLET 1 tablet by mout h three times daily as needed for headaches CYCLOBENZAPRINE HCL 10 MG ORAL TABLET 237797 CYCLOBENZAPRINE HCL Inactive VITAMIN D3 4000 IU 1 tab 3 times daily VITAMIN D3 4000 IU Inactive PROPRANOLOL HCL 80 MG ORAL TABLET 1 tab tue. and thur. PROPRANOLOL HCL 80 MG ORAL TABLET 153229 PROPRANOLOL HCL Inacti ve CYANOCOBALAMIN 1000 MCG/ML INJECTION SOLUTION 1 injection ev ruben 2 weeks CYANOCOBALAMIN 1000 MCG/ML INJECTION SOLUTION 30 9594 CYANOCOBALAMIN Inactive MAGNESIUM GLUCONATE 250 MG ORAL TABLET 1 tab tid 23/10/23 MAGNESIUM GLUCONATE 250 MG ORAL TABLET 533446 MAGNESIUM GLUCONATE Inactive LOMOTIL 2.5-0.025 MG ORAL TABLET 1 tab by mouth prn 20 23/10/23 LOMOTIL 2.5-0.025 MG ORAL TABLET 7699501 DIPHENOXYLATE-ATROPINE Inac tive FLORANEX ORAL PACKET 1 pack three times daily, for bowel health FLORANEX ORAL PACKET 63106565897 LACTOBACILLUS Inactive IRON 325 (65 Fe) MG ORAL TABLET 1 every other day 2015 IRON 325 (65 Fe) MG ORAL TABLET 043323 FERROUS SULFATE Inactive FLAGYL 500 MG ORAL TABLET 1 pill by mouth three times daily, for diarrhea FLAGYL 500 MG ORAL TABLET 774004 METRONIDAZOLE I nactive BACTRIM DS 800-160 MG ORAL TABLET 1 pill by mouth twice claudio y, for UTI BACTRIM DS 800-160 MG ORAL TABLET 905065 SULFAMETHOXAZOLE-TRIMETHOPRIM Inactive Advance Directives Directive Description Start [...] ... - Chemistry sodium, serum 141 mmol/L 633-917 5643/01/10 potassium, serum 3.7 mmol/L 3.5-5.2 chloride, serum 101 mmol/L 98-107 carbon dioxide, venous blood 31.0 mmol/L 21.0-32 .0 blood glucose 96 mg/dL 65-95 calcium, serum 9.5 mg/dL 8.5-10.1 urea nitrogen, blood 21 mg/dL 7-18 creatinine, serum 1.40 mg/dL 0.60-1.30 Estimated Glomerular Filtration Rate (calc) 39 (?) mL/min/1.73m2 = OR > 60 mL/min cholesterol, serum 211 mg/dL 766-239 8764/01/10 triglyceride, serum, fasting 77 mg/dL 30-200 HDL [...] 0.82 ng/dL 0.59-1.17 sodium, serum 142 mmol/L 852-568 6103/04/16 carbon dioxide, venous blood 30.0 mmol/L 21.0-32 [...] - Chelle radha sodium, serum 142 mmol/L 829-816 8443/11/02 potassium, serum 3.4 mmol/L 3.5-5.2 chloride, serum [...] 0.59-1.17 Encounters Code Encounter Date Provider Facility CPT-05975 [id number] Vst-Est Level III 09:15:19 CDT Fiorella Holt [facility] CPT-52069 Level 4 Est. Patient 15:35:24 MANAGER OF CORPORATE COMMUNICATIONS Adam Yates MD [facility] CPT-54604 Level 3 New Patient 12:08:54 MANAGER OF CORPORATE COMMUNICATIONS Adam Yates MD [facility] CPT-65625 [id number] Vst-Est Level IV 19:48:30 MANAGER OF CORPORATE COMMUNICATIONS [facility] [id number] Vst-Est Level III 14:29:19 CDT Fiorella Holt [facility] CPT-71026 Level 2 Est. Patient 14:58:26 CDT Kylie boyd [facility] CPT-26659 Level 3 Est. Patient 08:15:24 MANAGER OF CORPORATE COMMUNICATIONS [facility]015 Level 2 Est. Patient 14:27:16 MANAGER OF CORPORATE COMMUNICATIONS Kylie boyd [facility] CPT-23131 Level 3 Est. Patient 17:54:48 CDT Kylie boyd [facility] CPT-73756 Level 3 Est. Patient 16:26:30 CDT Kina blackmon [facility] CPT-66636 Level 3 New Patient 16:22:01 MANAGER OF CORPORATE COMMUNICATIONS Adam Yates MD [facility] CPT-88632 Level 4 Est. Patient 17:00:48 CDT Kylie boyd [facility] CPT-32388 Level 3 Est. Patient 13:15:54 CDT Kylie boyd [facility] CPT-24167 Level 3 Est. Patient 09:10:11 CDT Kylie boyd [facility] CPT-39455 Level 4 Est. Patient 12:08:30 MANAGER OF CORPORATE COMMUNICATIONS Hope cohn MD PhD [facility] CPT-79953 Level 4 Est. Patient 19:08:42 MANAGER OF CORPORATE COMMUNICATIONS Hope cohn MD PhD [facility] CPT-92428 Level 4 Est. Patient 20:04:51 CDT Hope cohn MD PhD [facility] CPT-31957 Level 3 New Patient 01:46:11 MANAGER OF CORPORATE COMMUNICATIONS Hope landers MD PhD [facility] Procedures Code Procedure Name Date Entry Date Standard Desc ription CPT-59965 Free T4 - LAB USE ONLY 11:44:37 CDT CPT-38337 TSH - LAB USE ONLY 11:44:37 CDT CPT-94285 Venipuncture Draw Fee 11:44:37 CDT CPT-J0897 Prolia 60 mg 10:36:55 CDT CPT-41052 Abx/Therapy Injection 10:36:55 CDT CPT-33592 Venipuncture Draw Fee 13:34:11 CDT CPT-G0439 Subsequent Annual Wellness Exam 09:15:19 CDT CPT-98151 Postop F/U Visit 15:45:41 CDT CPT-52812 Sono Soft Tissue Head and Neck - XRAY US E ONLY 11:56:06 MANAGER OF CORPORATE COMMUNICATIONS CPT-26370 Abx/Therapy Injection 09:40:08 MANAGER OF CORPORATE COMMUNICATIONS CPT-J0897 Prolia 60 mg 09:40:08 MANAGER OF CORPORATE COMMUNICATIONS CPT-42984 First Vx - Ix admin for Medicare patients 02/08 10:02:45 CDT CPT-20153 Fluzone Quadrivalent Intramuscular Suspe nsion 0.5 ML 10:02:45 CDT CPT-91830 Magnesium - LAB USE ONLY 09:41:00 CDT 12/09 CPT-00208 Renal Panel - LAB USE ONLY 09:41:00 CDT 201 09/17/01 CPT-53704 Venipuncture Draw Fee 09:41:00 CDT CPT-19778 Calcium - LAB USE ONLY 17:25:11 CDT CPT-J0897 Prolia 60 mg 15:10:59 CDT CPT-34124 Abx/Therapy Injection 15:10:59 CDT CPT-G0439 Subsequent Annual Wellness Exam 14:29:19 CDT CPT-87336 Venipuncture Draw Fee 10:59:04 CDT CPT-75035 CMP - LAB USE ONLY 10:59:04 CDT CPT-10938 CBC with Diff - LAB USE ONLY 10:59:03 CDT 2 CPT-J0897 Prolia 60 mg 15:46:54 MANAGER OF CORPORATE COMMUNICATIONS CPT-03826 Abx/Therapy Injection 15:46:54 MANAGER OF CORPORATE COMMUNICATIONS CPT-01901 Microalbumin - LAB USE ONLY 09:41:32 MANAGER OF CORPORATE COMMUNICATIONS 20 23/01/15 CPT-88406 Free T4 - LAB USE ONLY 09:41:32 MANAGER OF CORPORATE COMMUNICATIONS CPT-61736 TSH - LAB USE ONLY 09:41:32 MANAGER OF CORPORATE COMMUNICATIONS CPT-53506 BMP - LAB USE ONLY 09:41:32 MANAGER OF CORPORATE COMMUNICATIONS CPT-82634 Venipuncture Draw Fee 09:41:32 MANAGER OF CORPORATE COMMUNICATIONS CPT-56138 First Vx - Ix admin for Medicare patients 11:19:30 CDT CPT-84324 Fluzone High-Dose Intramuscular Suspension 12/07 11:19:30 CDT CPT-J0897 Prolia 60 mg 14:55:42 CDT CPT-25861 Abx/Therapy Injection 14:55:42 CDT CPT-41443 Bone Density - XRAY USE ONLY 10:27:12 CDT 2 CPT-G0439 Subsequent Annual Wellness Exam 17:54:53 CDT CPT-75157 Foot, left, comp min 3V - XRAY USE ONLY 2017/06/ 13 12:22:49 CDT CPT-G0009 Administration of Pneumococcal Vaccine 3 12:18:00 CDT CPT-17381 Pneumovax 23 Injection Injectable 25 MCG /0.5ML 12:18:00 CDT CPT-J0897 Prolia 60 mg 14:14:16 MANAGER OF CORPORATE COMMUNICATIONS CPT-56597 Abx/Therapy Injection 14:14:15 MANAGER OF CORPORATE COMMUNICATIONS CPT-08234 Lipid - LAB USE ONLY 10:01:52 MANAGER OF CORPORATE COMMUNICATIONS 2 CPT-52239 Calcium - LAB USE ONLY 10:01:51 MANAGER OF CORPORATE COMMUNICATIONS CPT-16626 Venipuncture Draw Fee 10:01:51 MANAGER OF CORPORATE COMMUNICATIONS CPT-LR Lesion Removal 16:22:01 MANAGER OF CORPORATE COMMUNICATIONS CPT-89192 TSH - LAB USE ONLY 14:26:02 CDT CPT-36098 CMP - LAB USE ONLY 14:26:01 CDT CPT-84792 CBC with Diff - LAB USE ONLY 14:26:01 CDT 2 CPT-27007 Venipuncture Draw Fee 14:26:01 CDT CPT-14216 First Vx - Ix admin for Medicare patients 13:27:08 CDT CPT-97976 Fluzone High-Dose Intramuscular Suspension 11/26 13:27:08 CDT CPT-G0438 Initial Annual Wellness Exam 14:19:57 CD T CPT-G0009 Administration of Pneumococcal Vaccine 9 11:36:25 CDT CPT-62930 Prevnar 13 Intramuscular Suspension 1 1:36:25 CDT CPT-97926 Prevnar 13 Intramuscular Suspension 1 0:40:58 CDT CPT-J0897 Prolia 60 mg 10:37:16 CDT CPT-67305 Abx/Therapy Injection 10:37:16 CDT CPT-J0897 Prolia 60 mg 16:09:34 MANAGER OF CORPORATE COMMUNICATIONS CPT-J0897 Prolia 60 mg 11:10:35 MANAGER OF CORPORATE COMMUNICATIONS CPT-79462 Abx/Therapy Injection 11:10:35 MANAGER OF CORPORATE COMMUNICATIONS CPT-000 Give Appropriate Flu Vaccine 17:01:15 MANAGER OF CORPORATE COMMUNICATIONS 2 CPT-80848 Fluzone High Dose (65+) 15:03:08 MANAGER OF CORPORATE COMMUNICATIONS 02/15 CPT-91873 Immunization Single Admin 15:03:08 MANAGER OF CORPORATE COMMUNICATIONS 2014 CPT-OV Office Visit 15:58:06 CDT CPT-J0897 Prolia 60 mg 08:45:38 CDT CPT-78608 Abx/Therapy Injection 08:45:38 CDT CPT-J3420 Vitamin B12 1000mcg (Cyanocobalamin) 09:26:20 MANAGER OF CORPORATE COMMUNICATIONS CPT-82898 Abx/Therapy Injection 09:26:20 MANAGER OF CORPORATE COMMUNICATIONS CPT-J3420 Vitamin B12 1000mcg (Cyanocobalamin) 09:44:40 MANAGER OF CORPORATE COMMUNICATIONS CPT-99627 Abx/Therapy Injection 09:44:40 MANAGER OF CORPORATE COMMUNICATIONS CPT-J3420 Vitamin B12 1000mcg (Cyanocobalamin) 09:15:54 MANAGER OF CORPORATE COMMUNICATIONS CPT-69735 Abx/Therapy Injection 09:15:54 MANAGER OF CORPORATE COMMUNICATIONS CPT-J3420 Vitamin B12 1000mcg (Cyanocobalamin) 09:46:44 MANAGER OF CORPORATE COMMUNICATIONS CPT-41913 Abx/Therapy Injection 09:46:44 MANAGER OF CORPORATE COMMUNICATIONS CPT-J3420 Vitamin B12 1000mcg (Cyanocobalamin) 09:47:34 MANAGER OF CORPORATE COMMUNICATIONS CPT-37092 Abx/Therapy Injection 09:47:34 MANAGER OF CORPORATE COMMUNICATIONS CPT-J3420 Vitamin B12 1000mcg (Cyanocobalamin) 14:35:50 MANAGER OF CORPORATE COMMUNICATIONS CPT-J3420 Vitamin B12 1000mcg (Cyanocobalamin) 09:25:05 MANAGER OF CORPORATE COMMUNICATIONS CPT-99805 Abx/Therapy Injection 09:25:05 MANAGER OF CORPORATE COMMUNICATIONS CPT-G0008 Administration of Influenza Virus Vaccine 13:36:47 CDT CPT-89853 Fluzone High-Dose Intramuscular Suspension 11/15 13:36:47 CDT CPT-J0897 Prolia 60 mg 08:50:41 CDT CPT-34570 Abx/Therapy Injection 08:50:41 CDT CPT-17797 Bone Density 12:06:12 CDT CPT-38916 Bone Density 08:54:40 CDT CPT-OV Office Visit 15:37:02 CDT CPT-15137 Postop F/U Visit 15:47:49 CDT CPT-27057 Postop F/U Visit 15:21:02 CDT CPT-TCM Transitional Care Mgmt-High 07:52:27 CDT 20 20/06/01 CPT-05967 Venipuncture Draw Fee 13:51:18 CDT CPT-71147 Venipuncture Draw Fee 10:14:55 MANAGER OF CORPORATE COMMUNICATIONS CPT-18888 Venipuncture Draw Fee 13:39:45 MANAGER OF CORPORATE COMMUNICATIONS CPT-OV Office Visit 15:11:22 MANAGER OF CORPORATE COMMUNICATIONS CPT-55434 Venipuncture Draw Fee 09:20:49 MANAGER OF CORPORATE COMMUNICATIONS CPT-61707 Venipuncture Draw Fee 16:52:15 MANAGER OF CORPORATE COMMUNICATIONS CPT-78338 Venipuncture Draw Fee 10:37:24 MANAGER OF CORPORATE COMMUNICATIONS CPT-83710 Venipuncture Draw Fee 08:21:21 MANAGER OF CORPORATE COMMUNICATIONS CPT-59803 Venipuncture Draw Fee 08:30:20 MANAGER OF CORPORATE COMMUNICATIONS CPT-73480 Venipuncture Draw Fee 14:53:21 MANAGER OF CORPORATE COMMUNICATIONS CPT-68943 Venipuncture Draw Fee 09:40:56 MANAGER OF CORPORATE COMMUNICATIONS CPT-55456 Venipuncture Draw Fee 10:30:47 MANAGER OF CORPORATE COMMUNICATIONS CPT-40135 Venipuncture Draw Fee 10:46:17 MANAGER OF CORPORATE COMMUNICATIONS CPT-17415 Venipuncture Draw Fee 11:12:45 MANAGER OF CORPORATE COMMUNICATIONS CPT-84937 Venipuncture Draw Fee 09:53:33 MANAGER OF CORPORATE COMMUNICATIONS CPT-61007 Venipuncture Draw Fee 11:53:51 MANAGER OF CORPORATE COMMUNICATIONS CPT-92167 Venipuncture Draw Fee 10:33:50 MANAGER OF CORPORATE COMMUNICATIONS CPT-13541 Venipuncture Draw Fee 10:05:01 MANAGER OF CORPORATE COMMUNICATIONS CPT-38944 Venipuncture Draw Fee 14:32:52 MANAGER OF CORPORATE COMMUNICATIONS CPT-29515 Venipuncture Draw Fee 09:46:13 MANAGER OF CORPORATE COMMUNICATIONS CPT-87751 Venipuncture Draw Fee 11:34:27 MANAGER OF CORPORATE COMMUNICATIONS CPT-19472 Venipuncture Draw Fee 13:17:16 MANAGER OF CORPORATE COMMUNICATIONS CPT-71139 Venipuncture Draw Fee 12:05:39 CDT CPT-93637 Venipuncture Draw Fee 12:49:12 CDT CPT-08456 Venipuncture Draw Fee 12:37:18 CDT CPT-93808 Venipuncture Draw Fee 10:57:11 CDT CPT-68595 Venipuncture Draw Fee 13:47:40 CDT CPT-07791 Venipuncture Draw Fee 10:02:17 CDT CPT-41853 TB Tubersol 17:32:32 CDT CPT-OV Office Visit 16:21:53 CDT CPT-OV Office Visit 15:49:22 CDT CPT-OV Office Visit 17:16:31 CDT CPT-OV Office Visit 10:43:31 CDT
--- OUTSIDE RECORDS SUMMARY | 2019-02-09 11:44 | XMS REPORT | Clinical Summary ---
Author Author Renaldo, Florecita Munoz Organization [facility] [employer] Address Unknown Phone Unavailable Allergies, Adverse Reactions, [...] PhD Hyperpotassemia GERD 530.81 Resolved Kylie Yokum ACCOUNTS RECEIVABLE PROCESSOR Esophageal reflux Health maintenance exam V70.0 Resolved Adolfo Yates MD Routine general medical examination at a health care facility Anemia 285.9 Resolved Kylie Yanet ACCOUNTS RECEIVABLE PROCESSOR Anemia, unspecified Personal history of malignant neoplasm of large intestine V10.05 Active Adam Yates MD Personal history of malignant neoplasm of large intestine Hypomagnesemia 275.2 Resolved Kylie Yanet ACCOUNTS RECEIVABLE PROCESSOR Disorders of magnesium metabolism Weakness 780.79 Resolved [...] PhD Osteoporosis, unspecified Dysuria 788.1 Resolved Hope Benaivdez MD PhD Dysuria Vitamin D deficiency 268.9 Active Hope Benavidez MD PhD Unspecified vitamin D deficiency Peripheral neuropathy 356.9 Active Hope Benavidez MD PhD Unspecified hereditary and idiopathic peripheral neuropathy Vitamin B12 deficiency 266.2 Active Citlaly Meff ord RMA Other B-complex deficiencies Adenocarcinoma, ascending colon 153.6 Resolved 2015 Adam Yates MD Malignant neoplasm of ascending colon Sebaceous cyst, scalp 706.2 Resolved Kylie Yokum ACCOUNTS RECEIVABLE PROCESSOR Sebaceous cyst Cervical lymphadenopathy, anterior, left 785.6 Resolv ed Kylie Yokum ACCOUNTS RECEIVABLE PROCESSOR Enlargement of lymph nodes Need for prophylactic vaccination and inoculation against in fluenza V04.81 Resolved Adam Yates MD Need for prophylactic vaccination and inoculation against influenza Preventive health care V70.0 Resolved Kylie Lundu m ACCOUNTS RECEIVABLE PROCESSOR Routine general medical examination at a health care facility Thyroid nodule, left 241.0 Resolved Selena Yates MD Nontoxic uninodular goiter Screening mammogram V76.12 Resolved Kylie Yokum A PRN Other screening mammogram Mandy 706.2 Resolved Kylie Yokum ACCOUNTS RECEIVABLE PROCESSOR Sebaceous cyst Colon cancer, ascending 153.6 Resolved Kylie Yok um ACCOUNTS RECEIVABLE PROCESSOR Malignant neoplasm of ascending colon Foot pain, left 729.5 Resolved Kylie Yokum ACCOUNTS RECEIVABLE PROCESSOR Pain in limb Splinter 919.6 Resolved Kylie Yokum ACCOUNTS RECEIVABLE PROCESSOR Superficial foreign body (splinter) of other, multiple, and unspecified sites, without major open wound and without mention of infection Rash 782.1 Resolved Kylie Yokum ACCOUNTS RECEIVABLE PROCESSOR Rash and other nonspecific skin eruption Cyst 706.2 Resolved Kylie Yokum ACCOUNTS RECEIVABLE PROCESSOR Sebaceous cyst Body Mass Index 23.0-23.9 Adult Refinement 2017 Kylie Yokum ACCOUNTS RECEIVABLE PROCESSOR Body Mass Index between 19-24, adult BMI [...] RIGHT LOWER QUADRANT ICD-789.03 Inactive Kina Joshua ACCOUNTS RECEIVABLE PROCESSOR ABDOMINAL PAIN, GENERALIZED ICD-789.07 Inactive Hope Benavidez MD PhD FEVER UNSPECIFIED ICD-780.60 Inactive Hope cohn MD PhD UNSPECIFIED VENOUS INSUFFICIENCY ICD-459.81 Elda ctive Adam Yates MD ADENOCARCINOMA, 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 Inac tive Hope Benavidez MD PhD Hyperkalemia ICD-276.7 Inactive Hope Benavidez MD PhD GERD ICD-530.81 Inactive Kylie Yanet ACCOUNTS RECEIVABLE PROCESSOR 2015 Health maintenance exam ICD-V70.0 Inactive Adolfo Yates MD Anemia ICD-285.9 Inactive Kylieshubham Holt ACCOUNTS RECEIVABLE PROCESSOR 07/24 Hypomagnesemia ICD-275.2 Inactive Kylie Holt ACCOUNTS RECEIVABLE PROCESSOR Weakness ICD-780.79 Inactive Hope Benavidez MD P hD ADENOCARCINOMA, COLON, 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 Dick Yates MD Colon cancer ICD-153.9 Inactive Adam luna MD Asymptomatic postmenopausal status (age-related) (natural) I CD-V49.81 Inactive Hope Benavidez MD PhD Diarrhea, functional ICD-564.5 Inactive Selena Yates MD Dysuria ICD-788.1 Inactive Hope Benavidez MD PhD 201 05/19/01 Adenocarcinoma, ascending colon ICD-153.6 Inac tive Adam Yates MD Sebaceous cyst, scalp ICD-706.2 Inactive Tracy hi Yokum ACCOUNTS RECEIVABLE PROCESSOR Cervical lymphadenopathy, anterior, left ICD-785.6 Inactive Kylie Yokum ACCOUNTS RECEIVABLE PROCESSOR Need for prophylactic vaccination and inoculation against in fluenza ICD-V04.81 Inactive Adam Yates MD Preventive health care ICD-V70.0 Inactive Ka thi Yokum ACCOUNTS RECEIVABLE PROCESSOR Thyroid nodule, left ICD-241.0 Inactive Selena Yates MD Screening mammogram ICD-V76.12 Inactive Kylie Yokum ACCOUNTS RECEIVABLE PROCESSOR Mandy ICD-706.2 Inactive Kylie Yokum ACCOUNTS RECEIVABLE PROCESSOR 07/20 Colon cancer, ascending ICD-153.6 Inactive K athi Yokum ACCOUNTS RECEIVABLE PROCESSOR Foot pain, left ICD-729.5 Inactive Kylie Yokum ACCOUNTS RECEIVABLE PROCESSOR Splinter ICD-919.6 Inactive Kylie Yokum ACCOUNTS RECEIVABLE PROCESSOR 2017 Aftercare following surgery of the teeth,oral cavity a nd digestive system, NEC ICD-V58.75 Inactive Adam Yates MD Rash ICD-782.1 Inactive Kylie Yokum ACCOUNTS RECEIVABLE PROCESSOR 07/25 Cyst ICD-706.2 Inactive Kylie Yokum ACCOUNTS RECEIVABLE PROCESSOR 08/11 Unspecified fall, initial encounter ICD-E888.9 Inactive Kylie Yokum ACCOUNTS RECEIVABLE PROCESSOR Eye pain, left ICD-379.91 Inactive Kylie Holt [...] Generic Name NDC Status Provider Patient Instruction LEVOTHYROXINE SODIUM 50 MCG ORAL TABLET 1 daily LEVOTHYROXINE SODIUM 95601987136 Active Kylie Holt APRN Active VOLTAREN 1 % TRANSDERMAL GEL apply 2 grams q 6-8 hour to left arm as needed for pain DICLOFENAC SODIUM 39981217581 Active Kylie Marrero Active IMODIUM A-D 2 MG ORAL TABLET 1 tablet twice a day LOPERAMIDE HCL 62448502069 Active Kylie Holt APRN Active COQ10 100 MG ORAL CAPSULE 1 daily COENZYME Q10 896999 97635 Active Fay Alberts Lisa Active VITAMIN D3 2000 UNIT ORAL CAPSULE Melaleuca-One daily CHOLECALCIFEROL 06573216650 Active Kylie Holt APRN Active PROBIOTIC DAILY ORAL CAPSULE Take one daily PROBIO TIC PRODUCT 95279990169 Active Kylie Holt APRN Active IRON 325 (65 Fe) MG ORAL TABLET 1 every other day FERROUS SULFATE 71266163542 No Longer Active Kylie Holt APRN Active FLORANEX ORAL PACKET 1 pack three times daily, for bowel health LACTOBACILLUS 80417709756 No Longer Active Kylie Lundum ACCOUNTS RECEIVABLE PROCESSOR Active LOMOTIL 2.5-0.025 MG ORAL TABLET 1 tab by mouth prn 20 23/10/23 DIPHENOXYLATE-ATROPINE 62137314369 No Longer Active Kylie Yokum ACCOUNTS RECEIVABLE PROCESSOR Active MAGNESIUM GLUCONATE 250 MG ORAL TABLET 1 tab tid 23/10/23 MAGNESIUM GLUCONATE 30453181197 No Longer Active Kylie Yokum ACCOUNTS RECEIVABLE PROCESSOR Active CYANOCOBALAMIN 1000 MCG/ML INJECTION SOLUTION 1 injection ev ruben 2 weeks CYANOCOBALAMIN 91167610448 No Longer Active Kylie Lund um ACCOUNTS RECEIVABLE PROCESSOR Active ATENOLOL 25 MG ORAL TABLET 1/2 pill by mouth daily, fo r headaches, blood pressure ATENOLOL 43194655883 Active Kylie Yokum ACCOUNTS RECEIVABLE PROCESSOR Active PROPRANOLOL HCL 80 MG ORAL TABLET 1 tab tue. and thur. PROPRANOLOL HCL 11134094319 No Longer Active Hope Benavidez MD PhD A ctive VITAMIN D3 4000 IU 1 tab 3 times daily VITAMIN D3 4000 IU No Longer Active Hope Benavidez MD PhD Active BACTRIM DS 800-160 MG ORAL TABLET 1 pill by mouth twice claudio y, for UTI SULFAMETHOXAZOLE-TRIMETHOPRIM 58585071850 No Longer Active Hope Benavidez MD PhD Active PROLIA 60 MG/ML SUBCUTANEOUS SOLUTION 1 shot every 6 months for osteoprosis DENOSUMAB 70635604317 Active Hope Benavidez MD PhD Active CALCIUM + D + K 750-500-40 MG-UNT-MCG ORAL TABLET 1 tab by m outh twice daily CALCIUM-VITAMIN D-VITAMIN K 61017921454 Active Hope valdez MD PhD Active DAILY VALUE MULTIVITAMIN ORAL TABLET 1 tab by mouth twice daily 201 05/16/14 MULTIPLE VITAMIN 41856376562 Active Hope Benavidez MD PhD Acti ve FISH OIL 306 MG CAPS 1 tab by mouth three times daily OMEGA-3 FATTY ACIDS 80710281666 Active Hope Benavidez MD PhD Active LUTEIN 10 MG ORAL TABLET 1 tab daily LUTEIN 03178379 408 Active Hope Benavidez MD PhD Active TRIAMTERENE-HCTZ 37.5-25 MG ORAL TABLET 1 tab by mouth daily 10/22 TRIAMTERENE-HCTZ 62129784618 Active Kylie Holt ACCOUNTS RECEIVABLE PROCESSOR Active CYCLOBENZAPRINE HCL 10 MG ORAL TABLET 1 tablet by mout h three times daily as needed for headaches CYCLOBENZAPRINE HCL 05678451824 No Longer Active Adam Yates MD Active OMEPRAZOLE 20 MG ORAL CAPSULE DELAYED RELEASE 1 tablet by mo [facility] daily for GERD OMEPRAZOLE 90797848350 No Longer Active Adam Yates MD Active ZOFRAN 8 MG ORAL TABLET 1 tab by mouth every 12 hours prn 4 ONDANSETRON HCL 31231663010 No Longer Active Adam Yates MD Active PHENADOZ 25 MG RECTAL SUPPOSITORY 1 every 4 hrs. PRN 2 PROMETHAZINE HCL 93928907567 No Longer Active Adam Yates MD A ctive POTASSIUM CHLORIDE 20 MEQ ORAL PACKET by mouth twice a day prn 2 POTASSIUM CHLORIDE 73408427418 No Longer Active Adam Carpenter MD Active PROMETHAZINE HCL 25 MG ORAL TABLET 1 Q. 4 hr. PRN PROMETHAZINE HCL 33251971750 No Longer Active Adam Yates MD Active INNOPRAN XL 120 MG ORAL CAPSULE EXTENDED RELEASE 24 HO UR Take one by mouth daily PROPRANOLOL HCL SR BEADS 44459861955 No Longer Active Adam Yates MD Active FLAGYL 500 MG ORAL TABLET 1 pill by mouth three times daily, for diarrhea METRONIDAZOLE 45346349102 No Longer Active Hope landers MD PhD Active DYAZIDE 37.5-25 MG ORAL CAPSULE 1 qd TRIA MTERENE-HCTZ 34908415052 No Longer Active Hope Benavidez MD PhD Active PROZAC 20 MG ORAL CAPSULE 1 q d FLUOXETINE HCL 73331281284 No Longer Active Hope Benavidez MD PhD Active SIMVASTATIN 40 MG ORAL TABLET 1 qd SIMVAS TATIN 78418700901 No Longer Active Adam Yates MD Active MELOXICAM 15 MG ORAL TABLET 1 qd MELOXICAM 64319881936 No Longer Active Adam Yates MD Active EXCEDRIN EXTRA STRENGTH 250-250-65 MG ORAL TABLET 1-2 q6h NV N headache [id number] 05437509200 Active Hope Benavidez MD PhD Active FLAGYL 500 MG ORAL TABLET 1 qid METRONIDAZOL E 36279153712 No Longer Active Adam Yates MD Active LEVAQUIN 750 MG ORAL TABLET 1 qd LEVOFLOXAC IN 08111449416 No Longer Active Adam Yates MD Active ADULT ASPIRIN LOW STRENGTH 81 MG ORAL TABLET DISINTEGRATING 1 qd ASPIRIN 44264164698 Active Hope Benavidez MD PhD Active LEVAQUIN 750 MG ORAL TABLET 1 qd LEVAQUIN 750 MG ORAL TABLET 365305 LEVOFLOXACIN Inactive FLAGYL 500 MG ORAL TABLET 1 qid FLAGYL 500 MG ORAL TABLET 720332 METRONIDAZOLE Inactive MELOXICAM 15 MG ORAL TABLET 1 qd MELOXICAM 15 MG ORAL TABLET 198078 MELOXICAM Inactive SIMVASTATIN 40 MG ORAL TABLET 1 qd SIMVASTATIN 40 MG ORAL TABLET 283686 SIMVASTATIN Inactive PROZAC 20 MG ORAL CAPSULE 1 q d PROZAC 20 MG ORAL CAPSULE 167050 FLUOXETINE HCL Inactive DYAZIDE 37.5-25 MG ORAL CAPSULE 1 qd 5 DYAZIDE 37.5-25 MG ORAL CAPSULE 125718 TRIAMTERENE-HCTZ Inactive INNOPRAN XL 120 MG ORAL CAPSULE EXTENDED RELEASE 24 HO UR Take one by mouth daily INNOPRAN XL 120 MG ORAL CAPSULE EXTENDED RELEASE 24 HOUR PROPRANOLOL HCL SR BEADS Inactive PROMETHAZINE HCL 25 MG ORAL TABLET 1 Q. 4 hr. PRN 2013 PROMETHAZINE HCL 25 MG ORAL TABLET 595025 PROMETHAZINE HCL Inactive POTASSIUM CHLORIDE 20 MEQ ORAL PACKET by mouth twice a day prn 2 POTASSIUM CHLORIDE 20 MEQ ORAL PACKET 3377912 POTASSIUM CHLORIDE Inactive PHENADOZ 25 MG RECTAL SUPPOSITORY 1 every 4 hrs. PRN 2 PHENADOZ 25 MG RECTAL SUPPOSITORY 774677 PROMETHAZINE HCL Inactive ZOFRAN 8 MG ORAL TABLET 1 tab by mouth every 12 hours prn 4 ZOFRAN 8 MG ORAL TABLET 378726 ONDANSETRON HCL Inactive OMEPRAZOLE 20 MG ORAL CAPSULE DELAYED RELEASE 1 tablet by mo ut daily for GERD OMEPRAZOLE 20 MG ORAL CAPSULE DELAYED RELEASE 19 8051 OMEPRAZOLE Inactive CYCLOBENZAPRINE HCL 10 MG ORAL TABLET 1 tablet by mout h three times daily as needed for headaches CYCLOBENZAPRINE HCL 10 MG ORAL TABLET 547697 CYCLOBENZAPRINE HCL Inactive VITAMIN D3 4000 IU 1 tab 3 times daily VITAMIN D3 4000 IU Inactive PROPRANOLOL HCL 80 MG ORAL TABLET 1 tab tue. and thur. PROPRANOLOL HCL 80 MG ORAL TABLET 630152 PROPRANOLOL HCL Inacti ve CYANOCOBALAMIN 1000 MCG/ML INJECTION SOLUTION 1 injection ev ruben 2 weeks CYANOCOBALAMIN 1000 MCG/ML INJECTION SOLUTION 30 9594 CYANOCOBALAMIN Inactive MAGNESIUM GLUCONATE 250 MG ORAL TABLET 1 tab tid 23/10/23 MAGNESIUM GLUCONATE 250 MG ORAL TABLET 519247 MAGNESIUM GLUCONATE Inactive LOMOTIL 2.5-0.025 MG ORAL TABLET 1 tab by mouth prn 20 23/10/23 LOMOTIL 2.5-0.025 MG ORAL TABLET 6040076 DIPHENOXYLATE-ATROPINE Inac tive FLORANEX ORAL PACKET 1 pack three times daily, for bowel health FLORANEX ORAL PACKET 00788101863 LACTOBACILLUS Inactive IRON 325 (65 Fe) MG ORAL TABLET 1 every other day 2015 IRON 325 (65 Fe) MG ORAL TABLET 681720 FERROUS SULFATE Inactive FLAGYL 500 MG ORAL TABLET 1 pill by mouth three times daily, for diarrhea FLAGYL 500 MG ORAL TABLET 881784 METRONIDAZOLE I nactive BACTRIM DS 800-160 MG ORAL TABLET 1 pill by mouth twice claudio y, for UTI BACTRIM DS 800-160 MG ORAL TABLET 701190 SULFAMETHOXAZOLE-TRIMETHOPRIM Inactive Advance Directives Directive Description Start [...] ... - Chemistry sodium, serum 141 mmol/L 966-036 5381/01/10 potassium, serum 3.7 mmol/L 3.5-5.2 chloride, serum 101 mmol/L 98-107 carbon dioxide, venous blood 31.0 mmol/L 21.0-32 .0 blood glucose 96 mg/dL 65-95 calcium, serum 9.5 mg/dL 8.5-10.1 urea nitrogen, blood 21 mg/dL 7-18 creatinine, serum 1.40 mg/dL 0.60-1.30 Estimated Glomerular Filtration Rate (calc) 39 (?) mL/min/1.73m2 = OR > 60 mL/min cholesterol, serum 211 mg/dL 464-004 6454/01/10 triglyceride, serum, fasting 77 mg/dL 30-200 HDL [...] 0.82 ng/dL 0.59-1.17 sodium, serum 142 mmol/L 191-564 4003/04/16 carbon dioxide, venous blood 30.0 mmol/L 21.0-32 [...] - Chelle radha sodium, serum 142 mmol/L 791-556 8681/11/02 potassium, serum 3.4 mmol/L 3.5-5.2 chloride, serum [...] 0.59-1.17 Encounters Code Encounter Date Provider Facility CPT-59729 [id number] Vst-Est Level III 09:15:19 [facility] Level 4 Est. Patient 15:35:24 HEALTH SAFETY INSTRUCTOR Adam Yates MD [facility] CPT-93269 Level 3 New Patient 12:08:54 HEALTH SAFETY INSTRUCTOR Adam Yates MD [facility] CPT-98597 [id number] Vst-Est Level IV 19:48:30 HEALTH SAFETY INSTRUCTOR Tracy Holt [facility] [place] CPT-12489 [id number] Vst-Est Level III 14:29:19 CDT Fiorella Holt [facility] [place] CPT-60312 Level 2 Est. Patient 14:58:26 CDT Kylie boyd [facility] [place] CPT-54491 Level 3 Est. Patient 08:15:24 HEALTH SAFETY INSTRUCTOR Kylie boyd [facility] [place] CPT-19192 Level 2 Est. Patient 14:27:16 HEALTH SAFETY INSTRUCTOR Kylie boyd [facility] [place] CPT-65873 Level 3 Est. Patient 17:54:48 CDT Kylie boyd [facility] CPT-24369 Level 3 Est. Patient 16:26:30 CDT Kina blackmon [facility] CPT-01038 Level 3 New Patient 16:22:01 HEALTH SAFETY INSTRUCTOR Adam Yates MD [facility] CPT-90556 Level 4 Est. Patient 17:00:48 CDT Kylie boyd [facility] [place] CPT-23243 Level 3 Est. Patient 13:15:54 CDT Kylie boyd [facility] CPT-98326 Level 3 Est. Patient 09:10:11 CDT Kylie boyd [facility] CPT-37703 Level 4 Est. Patient 12:08:30 HEALTH SAFETY INSTRUCTOR Hope cohn MD [facility] CPT-93817 Level 4 Est. Patient 19:08:42 HEALTH SAFETY INSTRUCTOR Hope cohn MD PhD [facility] CPT-64567 Level 4 Est. Patient 20:04:51 CDT Hope cohn MD PhD [facility] CPT-03587 Level 3 New Patient 01:46:11 HEALTH SAFETY INSTRUCTOR Hope landers MD PhD [facility] Procedures Code Procedure Name Date Entry Date Standard Desc ription CPT-71324 Free T4 - LAB USE ONLY 11:44:37 CDT CPT-19089 TSH - LAB USE ONLY 11:44:37 CDT CPT-83556 Venipuncture Draw Fee 11:44:37 CDT CPT-J0897 Prolia 60 mg 10:36:55 CDT CPT-80067 Abx/Therapy Injection 10:36:55 CDT CPT-07804 Venipuncture Draw Fee 13:34:11 CDT CPT-G0439 Subsequent Annual Wellness Exam 09:15:19 CDT CPT-38025 Postop F/U Visit 15:45:41 CDT CPT-32515 Sono Soft Tissue Head and Neck - XRAY US E ONLY 11:56:06 HEALTH SAFETY INSTRUCTOR CPT-35155 Abx/Therapy Injection 09:40:08 HEALTH SAFETY INSTRUCTOR CPT-J0897 Prolia 60 mg 09:40:08 HEALTH SAFETY INSTRUCTOR CPT-80035 First Vx - Ix admin for Medicare patients 02/08 10:02:45 CDT CPT-77308 Fluzone Quadrivalent Intramuscular Suspe nsion 0.5 ML 10:02:45 CDT CPT-48370 Magnesium - LAB USE ONLY 09:41:00 CDT 12/09 CPT-79114 Renal Panel - LAB USE ONLY 09:41:00 CDT 201 09/17/01 CPT-84745 Venipuncture Draw Fee 09:41:00 CDT CPT-22792 Calcium - LAB USE ONLY 17:25:11 CDT CPT-J0897 Prolia 60 mg 15:10:59 CDT CPT-35463 Abx/Therapy Injection 15:10:59 CDT CPT-G0439 Subsequent Annual Wellness Exam 14:29:19 CDT CPT-20088 Venipuncture Draw Fee 10:59:04 CDT CPT-71264 CMP - LAB USE ONLY 10:59:04 CDT CPT-12685 CBC with Diff - LAB USE ONLY 10:59:03 CDT 2 CPT-J0897 Prolia 60 mg 15:46:54 HEALTH SAFETY INSTRUCTOR CPT-92120 Abx/Therapy Injection 15:46:54 HEALTH SAFETY INSTRUCTOR CPT-88362 Microalbumin - LAB USE ONLY 09:41:32 HEALTH SAFETY INSTRUCTOR 20 23/01/15 CPT-70552 Free T4 - LAB USE ONLY 09:41:32 HEALTH SAFETY INSTRUCTOR CPT-07442 TSH - LAB USE ONLY 09:41:32 HEALTH SAFETY INSTRUCTOR CPT-25694 BMP - LAB USE ONLY 09:41:32 HEALTH SAFETY INSTRUCTOR CPT-74799 Venipuncture Draw Fee 09:41:32 HEALTH SAFETY INSTRUCTOR CPT-02568 First Vx - Ix admin for Medicare patients 11:19:30 CDT CPT-75717 Fluzone High-Dose Intramuscular Suspension 12/07 11:19:30 CDT CPT-J0897 Prolia 60 mg 14:55:42 CDT CPT-62611 Abx/Therapy Injection 14:55:42 CDT CPT-27420 Bone Density - XRAY USE ONLY 10:27:12 CDT 2 CPT-G0439 [facility] Annual Wellness Exam 17:54:53 CDT CPT-78507 Foot, left, comp min 3V - XRAY USE ONLY 12:22:49 CDT CPT-G0009 Administration of Pneumococcal Vaccine 3 12:18:00 CDT CPT-86831 Pneumovax 23 Injection Injectable 25 MCG /0.5ML 12:18:00 CDT CPT-J0897 Prolia 60 mg 14:14:16 HEALTH SAFETY INSTRUCTOR CPT-63969 Abx/Therapy Injection 14:14:15 HEALTH SAFETY INSTRUCTOR CPT-63500 Lipid - LAB USE ONLY 10:01:52 HEALTH SAFETY INSTRUCTOR 2 CPT-22084 Calcium - LAB USE ONLY 10:01:51 HEALTH SAFETY INSTRUCTOR CPT-66231 Venipuncture Draw Fee 10:01:51 HEALTH SAFETY INSTRUCTOR CPT-LR Lesion Removal 16:22:01 HEALTH SAFETY INSTRUCTOR CPT-28908 TSH - LAB USE ONLY 14:26:02 CDT CPT-47360 CMP - LAB USE ONLY 14:26:01 CDT CPT-28419 CBC with Diff - LAB USE ONLY 14:26:01 CDT 2 CPT-12879 Venipuncture Draw Fee 14:26:01 CDT CPT-23897 First Vx - Ix admin for Medicare patients 13:27:08 CDT CPT-47754 Fluzone High-Dose Intramuscular Suspension 11/26 13:27:08 CDT CPT-G0438 Initial Annual Wellness Exam 14:19:57 CD T CPT-G0009 Administration of Pneumococcal Vaccine 9 11:36:25 CDT CPT-61434 Prevnar 13 Intramuscular Suspension 1 1:36:25 CDT CPT-49634 Prevnar 13 Intramuscular Suspension 1 0:40:58 CDT CPT-J0897 Prolia 60 mg 10:37:16 CDT CPT-44409 Abx/Therapy Injection 10:37:16 CDT CPT-J0897 Prolia 60 mg 16:09:34 HEALTH SAFETY INSTRUCTOR CPT-J0897 Prolia 60 mg 11:10:35 HEALTH SAFETY INSTRUCTOR CPT-56678 Abx/Therapy Injection 11:10:35 HEALTH SAFETY INSTRUCTOR CPT-000 Give Appropriate Flu Vaccine 17:01:15 HEALTH SAFETY INSTRUCTOR 2 CPT-14466 Fluzone High Dose (65+) 15:03:08 HEALTH SAFETY INSTRUCTOR 02/15 CPT-13192 Immunization Single Admin 15:03:08 HEALTH SAFETY INSTRUCTOR 2014 CPT-OV Office Visit 15:58:06 CDT CPT-J0897 Prolia 60 mg 08:45:38 CDT CPT-14351 Abx/Therapy Injection 08:45:38 CDT CPT-J3420 Vitamin B12 1000mcg (Cyanocobalamin) 09:26:20 HEALTH SAFETY INSTRUCTOR CPT-87728 Abx/Therapy Injection 09:26:20 HEALTH SAFETY INSTRUCTOR CPT-J3420 Vitamin B12 1000mcg (Cyanocobalamin) 09:44:40 HEALTH SAFETY INSTRUCTOR CPT-07043 Abx/Therapy Injection 09:44:40 HEALTH SAFETY INSTRUCTOR CPT-J3420 Vitamin B12 1000mcg (Cyanocobalamin) 09:15:54 HEALTH SAFETY INSTRUCTOR CPT-39046 Abx/Therapy Injection 09:15:54 HEALTH SAFETY INSTRUCTOR CPT-J3420 Vitamin B12 1000mcg (Cyanocobalamin) 09:46:44 HEALTH SAFETY INSTRUCTOR CPT-47417 Abx/Therapy Injection 09:46:44 HEALTH SAFETY INSTRUCTOR CPT-J3420 Vitamin B12 1000mcg (Cyanocobalamin) 09:47:34 HEALTH SAFETY INSTRUCTOR CPT-22400 Abx/Therapy Injection 09:47:34 HEALTH SAFETY INSTRUCTOR CPT-J3420 Vitamin B12 1000mcg (Cyanocobalamin) 14:35:50 HEALTH SAFETY INSTRUCTOR CPT-J3420 Vitamin B12 1000mcg (Cyanocobalamin) 09:25:05 HEALTH SAFETY INSTRUCTOR CPT-55878 Abx/Therapy Injection 09:25:05 HEALTH SAFETY INSTRUCTOR CPT-G0008 Administration of Influenza Virus Vaccine 13:36:47 CDT CPT-01167 Fluzone High-Dose Intramuscular Suspension 11/15 13:36:47 CDT CPT-J0897 Prolia 60 mg 08:50:41 CDT CPT-99544 Abx/Therapy Injection 08:50:41 CDT CPT-09056 Bone Density 12:06:12 CDT CPT-47870 Bone Density 08:54:40 CDT CPT-OV Office Visit 15:37:02 CDT CPT-80141 Postop F/U Visit 15:47:49 CDT CPT-53035 Postop F/U Visit 15:21:02 CDT [facility]-High 07:52:27 CDT 20 20/06/01 CPT-32677 Venipuncture Draw Fee 13:51:18 CDT CPT-54644 Venipuncture Draw Fee 10:14:55 HEALTH SAFETY INSTRUCTOR CPT-63589 Venipuncture Draw Fee 13:39:45 HEALTH SAFETY INSTRUCTOR CPT-OV Office Visit 15:11:22 HEALTH SAFETY INSTRUCTOR CPT-55120 Venipuncture Draw Fee 09:20:49 HEALTH SAFETY INSTRUCTOR CPT-40544 Venipuncture Draw Fee 16:52:15 HEALTH SAFETY INSTRUCTOR CPT-40817 Venipuncture Draw Fee 10:37:24 HEALTH SAFETY INSTRUCTOR CPT-10538 Venipuncture Draw Fee 08:21:21 HEALTH SAFETY INSTRUCTOR CPT-65441 Venipuncture Draw Fee 08:30:20 HEALTH SAFETY INSTRUCTOR CPT-89396 Venipuncture Draw Fee 14:53:21 HEALTH SAFETY INSTRUCTOR CPT-89035 Venipuncture Draw Fee 09:40:56 HEALTH SAFETY INSTRUCTOR CPT-39698 Venipuncture Draw Fee 10:30:47 HEALTH SAFETY INSTRUCTOR CPT-26415 Venipuncture Draw Fee 10:46:17 HEALTH SAFETY INSTRUCTOR CPT-09250 Venipuncture Draw Fee 11:12:45 HEALTH SAFETY INSTRUCTOR CPT-11535 Venipuncture Draw Fee 09:53:33 HEALTH SAFETY INSTRUCTOR CPT-72123 Venipuncture Draw Fee 11:53:51 HEALTH SAFETY INSTRUCTOR CPT-91522 Venipuncture Draw Fee 10:33:50 HEALTH SAFETY INSTRUCTOR CPT-41900 Venipuncture Draw Fee 10:05:01 HEALTH SAFETY INSTRUCTOR CPT-23971 Venipuncture Draw Fee 14:32:52 HEALTH SAFETY INSTRUCTOR CPT-04049 Venipuncture Draw Fee 09:46:13 HEALTH SAFETY INSTRUCTOR CPT-77604 Venipuncture Draw Fee 11:34:27 HEALTH SAFETY INSTRUCTOR CPT-60835 Venipuncture Draw Fee 13:17:16 HEALTH SAFETY INSTRUCTOR CPT-95396 Venipuncture Draw Fee 12:05:39 CDT CPT-69883 Venipuncture Draw Fee 12:49:12 CDT CPT-10858 Venipuncture Draw Fee 12:37:18 CDT CPT-12428 Venipuncture Draw Fee 10:57:11 CDT CPT-18489 Venipuncture Draw Fee 13:47:40 CDT CPT-59668 Venipuncture Draw Fee 10:02:17 CDT CPT-96904 TB Tubersol 17:32:32 CDT CPT-OV Office Visit 16:21:53 CDT CPT-OV Office Visit 15:49:22 CDT CPT-OV Office Visit 17:16:31 CDT CPT-OV Office Visit 10:43:31 CDT
--- OUTSIDE RECORDS SUMMARY | 2019-02-09 11:44 | XMS REPORT | Clinical Summary ---
Author Author Admin, Florecita Munoz Organization [facility] [employer] Address Unknown Phone Unavailable Allergies, Adverse Reactions, [...] Sebaceous cyst, scalp 706.2 Resolved Kylie Yokum RIPRAP PLACER Sebaceous cyst Cervical lymphadenopathy, anterior, left 785.6 Resolv ed Kylie Yokum RIPRAP PLACER Enlargement of lymph nodes Need for prophylactic vaccination and inoculation against in fluenza V04.81 Resolved Adam Yates MD Need for prophylactic vaccination and inoculation against influenza Preventive health care V70.0 Resolved Kylie Lundu m [employer]RAP PLACER Routine general medical examination at a health care facility Thyroid nodule, left 241.0 Resolved Selena Yates MD Nontoxic uninodular goiter Screening mammogram V76.12 Resolved Kylie Yokum A PRN Other screening mammogram Mandy 706.2 Resolved Kylie Yokum [employer]RAP [employer]ACER Sebaceous cyst Colon cancer, ascending 153.6 Resolved Kylie Yok um [employer]RAP PLACER Malignant neoplasm of ascending colon Foot pain, left 729.5 Resolved Kylie Yokum RIPRAP PLACER Pain in limb Splinter 919.6 Resolved Kylie Yokum RIPRAP PLACER Superficial foreign body (splinter) of other, multiple, and unspecified sites, without major open wound and without mention of infection Rash 782.1 Resolved Kylie Yokum RIPRAP PLACER Rash and other nonspecific skin eruption Cyst 706.2 Resolved Kylie Yokum RIPRAP PLACER Sebaceous cyst Body Mass Index 23.0-23.9 Adult Refinement 2017 Kylie Yokum RIPRAP PLACER Body Mass Index between 19-24, adult BMI [...] RIGHT LOWER QUADRANT ICD-789.03 Inactive Kina Joshua RIPRAP PLACER ADENOCARCINOMA, COLON, 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 Dick Yates MD ABDOMINAL PAIN, GENERALIZED ICD-789.07 Inactive Hope Benavidez MD PhD FEVER UNSPECIFIED ICD-780.60 Inactive Hope cohn MD PhD UNSPECIFIED VENOUS INSUFFICIENCY ICD-459.81 [place] ctive Adam Yates MD ADENOCARCINOMA, 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 Inac tive Hope Benavidez MD PhD Hyperkalemia ICD-276.7 Inactive Hope Benavidez MD PhD GERD ICD-530.81 Inactive Kylie Yanet RIPRAP PLACER 2015 Health maintenance exam ICD-V70.0 Bam Yates MD Anemia ICD-285.9 Inactive Kylie Escalonapari RIPRAP PLACER 07/24 Hypomagnesemia ICD-275.2 Inactive Kylie Holt RIPRAP PLACER Weakness ICD-780.79 Inactive Hope Benavidez MD P [...] cyst, scalp ICD-706.2 Inactive Tracy hi Yokum RIPRAP PLACER Cervical lymphadenopathy, anterior, left ICD-785.6 Inactive Kylie Yokum RIPRAP PLACER Need for prophylactic vaccination and inoculation against in fluenza ICD-V04.81 Inactive Adam Yates MD Preventive health care ICD-V70.0 Inactive Ka thi Yokum RIPRAP PLACER Thyroid nodule, left ICD-241.0 Inactive Selena Yates MD Screening mammogram ICD-V76.12 Inactive Kylie Yokum RIPRAP PLACER Mandy ICD-706.2 Inactive Kylie Yokum RIPRAP PLACER 07/20 Colon cancer, ascending ICD-153.6 Inactive K athi Yokum RIPRAP PLACER Foot pain, left ICD-729.5 Inactive Kylie Yokum RIPRAP PLACER Splinter ICD-919.6 Inactive Kylie Yokum RIPRAP PLACER 2017 Rash ICD-782.1 Inactive Kylie Yokum RIPRAP PLACER 07/25 Cyst ICD-706.2 Inactive Kylie Yokum RIPRAP PLACER 08/11 Unspecified fall, initial encounter ICD-E888.9 Inactive Kylie Yokum RIPRAP PLACER Eye pain, left ICD-379.91 Inactive Kylie Holt [...] MCG ORAL TABLET 1 daily LEVOTHYROXINE SODIUM 67132260492 Active Kylie Holt APRN Active VOLTAREN 1 % TRANSDERMAL GEL apply 2 grams q 6-8 hour to left arm as needed for pain DICLOFENAC SODIUM 70089664369 Active Kylie Marrero Active IMODIUM A-D 2 MG ORAL TABLET 1 tablet twice a day LOPERAMIDE HCL 71970389802 Active Kylie Holt APRN Active COQ10 100 MG ORAL CAPSULE 1 daily COENZYME Q10 435408 68901 Active Fay Alberts Lisa Active VITAMIN D3 2000 UNIT ORAL CAPSULE Melaleuca-One daily CHOLECALCIFEROL 24389945530 Active Kylie Holt APRN Active PROBIOTIC DAILY ORAL CAPSULE Take one daily PROBIO TIC PRODUCT 66135285413 Active Kylie Holt APRN Active IRON 325 (65 Fe) MG ORAL TABLET 1 every other day FERROUS SULFATE 34822798949 No Longer Active Kylie Holt APRN Active FLORANEX ORAL PACKET 1 pack three times daily, for bowel health LACTOBACILLUS 52821419035 No Longer Active Kylie Yogabbium RIPRAP PLACER Active LOMOTIL 2.5-0.025 MG ORAL TABLET 1 tab by mouth prn 20 23/10/23 DIPHENOXYLATE-ATROPINE 31744048593 No Longer Active Kylie Yokum RIPRAP PLACER Active MAGNESIUM GLUCONATE 250 MG ORAL TABLET 1 tab tid 23/10/23 MAGNESIUM GLUCONATE 97808230776 No Longer Active Kylie Yokum RIPRAP PLACER Active CYANOCOBALAMIN 1000 MCG/ML INJECTION SOLUTION 1 injection ev ruben 2 weeks CYANOCOBALAMIN 34309858431 No Longer Active Kylie Yogabbi um RIPRAP PLACER Active ATENOLOL 25 MG ORAL TABLET 1/2 pill by mouth daily, fo r headaches, blood pressure ATENOLOL 50616608557 Active Kylie Yokum RIPRAP PLACER Active PROPRANOLOL HCL 80 MG ORAL TABLET 1 tab tue. and thur. PROPRANOLOL HCL 49303298218 No Longer Active Hope Benavidez MD PhD A ctive VITAMIN D3 4000 IU 1 tab 3 times daily VITAMIN D3 4000 IU No Longer Active Hope Benavidez MD PhD Active BACTRIM DS 800-160 MG ORAL TABLET 1 pill by mouth twice claudio y, for UTI SULFAMETHOXAZOLE-TRIMETHOPRIM 03593967565 No Longer Active Hope Benavidez MD PhD Active PROLIA 60 MG/ML SUBCUTANEOUS SOLUTION 1 shot every 6 months for osteoprosis DENOSUMAB 82368837233 Active Hope Benavidez MD PhD Active CALCIUM + D + K 750-500-40 MG-UNT-MCG ORAL TABLET 1 tab by m outh twice daily CALCIUM-VITAMIN D-VITAMIN K 02979906154 Active Hope valdez MD PhD Active DAILY VALUE MULTIVITAMIN ORAL TABLET 1 tab by mouth twice daily 201 05/16/14 MULTIPLE VITAMIN 95154985206 Active Hope Benavidez MD PhD Acti ve FISH OIL 306 MG CAPS 1 tab by mouth three times daily OMEGA-3 FATTY ACIDS 49454719218 Active Hope Benavidez MD PhD Active LUTEIN 10 MG ORAL TABLET 1 tab daily LUTEIN 16155325 408 Active Hope Benavidez MD PhD Active TRIAMTERENE-HCTZ 37.5-25 MG ORAL TABLET 1 tab by mouth daily 10/22 TRIAMTERENE-HCTZ 09992476281 Active Kylie Holt RIPRAP PLACER Active CYCLOBENZAPRINE HCL 10 MG ORAL TABLET 1 tablet by [facility] three times daily as needed for headaches CYCLOBENZAPRINE HCL 72557745910 No Longer Active Adam Yates MD Active OMEPRAZOLE 20 MG ORAL CAPSULE DELAYED RELEASE 1 tablet by [facility] daily for GERD OMEPRAZOLE 71565127714 No Longer Active Adam Yates MD Active ZOFRAN 8 MG ORAL TABLET 1 tab by mouth every 12 hours prn 4 ONDANSETRON HCL 12051388799 No Longer Active Adam Yates MD Active PHENADOZ 25 MG RECTAL SUPPOSITORY 1 every 4 hrs. PRN 2 PROMETHAZINE HCL 39737117905 No Longer Active Adam Yates MD A ctive POTASSIUM CHLORIDE 20 MEQ ORAL PACKET by mouth twice a day prn 2 POTASSIUM CHLORIDE 61021350113 No Longer Active Adam Carpenter MD Active PROMETHAZINE HCL 25 MG ORAL TABLET 1 Q. 4 hr. PRN PROMETHAZINE HCL 50751511094 No Longer Active Adam Yates MD Active INNOPRAN XL 120 MG ORAL CAPSULE EXTENDED RELEASE 24 HO UR Take one by mouth daily PROPRANOLOL HCL SR BEADS 89296239913 No Longer Active Adam Yates MD Active FLAGYL 500 MG ORAL TABLET 1 pill by mouth three times daily, for diarrhea METRONIDAZOLE 95980193615 No Longer Active Hope landers MD PhD Active DYAZIDE 37.5-25 MG ORAL CAPSULE 1 qd TRIA MTERENE-HCTZ 01022518385 No Longer Active Hope Benavidez MD PhD Active PROZAC 20 MG ORAL CAPSULE 1 q d FLUOXETINE HCL 41268881330 No Longer Active Hope Benavidez MD PhD Active SIMVASTATIN 40 MG ORAL TABLET 1 qd SIMVAS TATIN 54735137876 No Longer Active Adam Yates MD Active MELOXICAM 15 MG ORAL TABLET 1 qd MELOXICAM 35320624784 No Longer Active Adam Yates MD Active EXCEDRIN EXTRA STRENGTH 250-250-65 MG ORAL TABLET 1-2 q6h CA N headache [id number] 86581929146 Active Hope Benavidez MD PhD Active FLAGYL 500 MG ORAL TABLET 1 qid METRONIDAZOL E 19484100980 No Longer Active Adam Yates MD Active LEVAQUIN 750 MG ORAL TABLET 1 qd LEVOFLOXAC IN 69626320107 No Longer Active Adam Yates MD Active ADULT ASPIRIN LOW STRENGTH 81 MG ORAL TABLET DISINTEGRATING 1 qd ASPIRIN 33556766782 Active Hope Benavidez MD PhD Active LEVAQUIN 750 MG ORAL TABLET 1 qd LEVAQUIN 750 MG ORAL TABLET 616113 LEVOFLOXACIN Inactive FLAGYL 500 MG ORAL TABLET 1 qid FLAGYL 500 MG ORAL TABLET 197895 METRONIDAZOLE Inactive MELOXICAM 15 MG ORAL TABLET 1 qd MELOXICAM 15 MG ORAL TABLET 925283 MELOXICAM Inactive SIMVASTATIN 40 MG ORAL TABLET 1 qd SIMVASTATIN 40 MG ORAL TABLET 855391 SIMVASTATIN Inactive PROZAC 20 MG ORAL CAPSULE 1 q d PROZAC 20 MG ORAL CAPSULE 521405 FLUOXETINE HCL Inactive DYAZIDE 37.5-25 MG ORAL CAPSULE 1 qd 5 DYAZIDE 37.5-25 MG ORAL CAPSULE 125941 TRIAMTERENE-HCTZ Inactive INNOPRAN XL 120 MG ORAL CAPSULE EXTENDED RELEASE 24 HO UR Take one by mouth daily INNOPRAN XL 120 MG ORAL CAPSULE EXTENDED RELEASE 24 HOUR PROPRANOLOL HCL SR BEADS Inactive PROMETHAZINE HCL 25 MG ORAL TABLET 1 Q. 4 hr. PRN 2013 PROMETHAZINE HCL 25 MG ORAL TABLET 192896 PROMETHAZINE HCL Inactive POTASSIUM CHLORIDE 20 MEQ ORAL PACKET by mouth twice a day prn 2 POTASSIUM CHLORIDE 20 MEQ ORAL PACKET 1984948 POTASSIUM CHLORIDE Inactive PHENADOZ 25 MG RECTAL SUPPOSITORY 1 every 4 hrs. PRN 2 PHENADOZ 25 MG RECTAL SUPPOSITORY 718403 PROMETHAZINE HCL Inactive ZOFRAN 8 MG ORAL TABLET 1 tab by mouth every 12 hours prn 4 ZOFRAN 8 MG ORAL TABLET 800957 ONDANSETRON HCL Inactive OMEPRAZOLE 20 MG ORAL CAPSULE DELAYED RELEASE 1 tablet by mo ut daily for GERD OMEPRAZOLE 20 MG ORAL CAPSULE DELAYED RELEASE 19 8051 OMEPRAZOLE Inactive CYCLOBENZAPRINE HCL 10 MG ORAL TABLET 1 tablet by mout h three times daily as needed for headaches CYCLOBENZAPRINE HCL 10 MG ORAL TABLET 078354 CYCLOBENZAPRINE HCL Inactive VITAMIN D3 4000 IU 1 tab 3 times daily VITAMIN D3 4000 IU Inactive PROPRANOLOL HCL 80 MG ORAL TABLET 1 tab tue. and thur. PROPRANOLOL HCL 80 MG ORAL TABLET 853854 PROPRANOLOL HCL Inacti ve CYANOCOBALAMIN 1000 MCG/ML INJECTION SOLUTION 1 injection ev ruben 2 weeks CYANOCOBALAMIN 1000 MCG/ML INJECTION SOLUTION 30 9594 CYANOCOBALAMIN Inactive MAGNESIUM GLUCONATE 250 MG ORAL TABLET 1 tab tid 23/10/23 MAGNESIUM GLUCONATE 250 MG ORAL TABLET 495929 MAGNESIUM GLUCONATE Inactive LOMOTIL 2.5-0.025 MG ORAL TABLET 1 tab by mouth prn 20 23/10/23 LOMOTIL 2.5-0.025 MG ORAL TABLET 1102153 DIPHENOXYLATE-ATROPINE Inac tive FLORANEX ORAL PACKET 1 pack three times daily, for bowel health FLORANEX ORAL PACKET 45222011813 LACTOBACILLUS Inactive IRON 325 (65 Fe) MG ORAL TABLET 1 every other day 2015 IRON 325 (65 Fe) MG ORAL TABLET 269010 FERROUS SULFATE Inactive FLAGYL 500 MG ORAL TABLET 1 pill by mouth three times daily, for diarrhea FLAGYL 500 MG ORAL TABLET 297742 METRONIDAZOLE I nactive BACTRIM DS 800-160 MG ORAL TABLET 1 pill by mouth twice claudio y, for UTI BACTRIM DS 800-160 MG ORAL TABLET 599110 SULFAMETHOXAZOLE-TRIMETHOPRIM Inactive Advance Directives Directive Description Start [...] ... - Chemistry sodium, serum 141 mmol/L 254-207 7353/01/10 potassium, serum 3.7 mmol/L 3.5-5.2 chloride, serum 101 mmol/L 98-107 carbon dioxide, venous blood 31.0 mmol/L 21.0-32 .0 blood glucose 96 mg/dL 65-95 calcium, serum 9.5 mg/dL 8.5-10.1 urea nitrogen, blood 21 mg/dL 7-18 creatinine, serum 1.40 mg/dL 0.60-1.30 Estimated Glomerular Filtration Rate (calc) 39 (?) mL/min/1.73m2 = OR > 60 mL/min cholesterol, serum 211 mg/dL 076-161 7168/01/10 triglyceride, serum, fasting 77 mg/dL 30-200 HDL [...] 0.82 ng/dL 0.59-1.17 sodium, serum 142 mmol/L 440-367 8279/04/16 carbon dioxide, venous blood 30.0 mmol/L 21.0-32 [...] - Chelle radha sodium, serum 142 mmol/L 345-060 6245/11/02 potassium, serum 3.4 mmol/L 3.5-5.2 chloride, serum [...] 0.59-1.17 Encounters Code Encounter Date Provider Facility CPT-99309 [id number] Vst-Est Level III 09:15:19 [facility] Level 4 Est. Patient 15:35:24 FAMILY PROGRAM SPECIALIST Adam Yates MD [facility] CPT-84783 Level 3 New Patient 12:08:54 FAMILY PROGRAM SPECIALIST Adam Yates MD [facility] CPT-92213 [id number] Vst-Est Level IV 19:48:30 FAMILY PROGRAM SPECIALIST Tracy Holt [facility] [place] CPT-13704 [id number] Vst-Est Level III 14:29:19 CDT Fiorella Holt [facility] [place] CPT-04882 Level 2 Est. Patient 14:58:26 CDT Kylie boyd [facility] [place] CPT-23967 Level 3 Est. Patient 08:15:24 FAMILY PROGRAM SPECIALIST Kylie boyd [facility] CPT-65488 Level 2 Est. Patient 14:27:16 FAMILY PROGRAM SPECIALIST [facility] CPT-34093 Level 3 Est. Patient 17:54:48 CDT Kylie obyd [facility] CPT-96240 Level 3 Est. Patient 16:26:30 CDT Kina blackmon [facility] CPT-77635 Level 3 New Patient 16:22:01 FAMILY PROGRAM SPECIALIST Adam Yates MD [facility] CPT-42698 Level 4 Est. Patient 17:00:48 CDT [facility] CPT-59634 Level 3 Est. Patient 13:15:54 CDT Kylie boyd [facility] CPT-31264 Level 3 Est. Patient 09:10:11 CDT Kylie Lund [facility] CPT-54424 Level 4 Est. Patient 12:08:30 FAMILY PROGRAM SPECIALIST Hope cohn MD [facility] CPT-22222 Level 4 Est. Patient 19:08:42 FAMILY PROGRAM SPECIALIST Hope cohn MD PhD [facility] CPT-56788 Level 4 Est. Patient 20:04:51 CDT Hope cohn MD PhD [facility] CPT-66243 Level 3 New Patient 01:46:11 FAMILY PROGRAM SPECIALIST Hope landers MD PhD [facility] Procedures Code Procedure Name Date Entry Date Standard Desc ription CPT-33262 Free T4 - LAB USE ONLY 11:44:37 CDT CPT-59729 TSH - LAB USE ONLY 11:44:37 CDT CPT-21348 Venipuncture Draw Fee 11:44:37 CDT CPT-J0897 Prolia 60 mg 10:36:55 CDT CPT-63969 Abx/Therapy Injection 10:36:55 CDT CPT-64235 Venipuncture Draw Fee 13:34:11 CDT CPT-G0439 Subsequent Annual Wellness Exam 09:15:19 CDT CPT-03776 Postop F/U Visit 15:45:41 CDT CPT-61559 Sono Soft Tissue Head and Neck - XRAY US E ONLY 11:56:06 FAMILY PROGRAM SPECIALIST CPT-22440 Abx/Therapy Injection 09:40:08 FAMILY PROGRAM SPECIALIST CPT-J0897 Prolia 60 mg 09:40:08 FAMILY PROGRAM SPECIALIST CPT-99189 First Vx - Ix admin for Medicare patients 02/08 10:02:45 CDT CPT-86673 Fluzone Quadrivalent Intramuscular Suspe nsion 0.5 ML 10:02:45 CDT CPT-87599 Magnesium - LAB USE ONLY 09:41:00 CDT 12/09 CPT-30699 Renal Panel - LAB USE ONLY 09:41:00 CDT 201 09/17/01 CPT-94827 Venipuncture Draw Fee 09:41:00 CDT CPT-37387 Calcium - LAB USE ONLY 17:25:11 CDT CPT-J0897 Prolia 60 mg 15:10:59 CDT CPT-90756 Abx/Therapy Injection 15:10:59 CDT CPT-G0439 Subsequent Annual Wellness Exam 14:29:19 CDT CPT-94550 Venipuncture Draw Fee 10:59:04 CDT CPT-86006 CMP - LAB USE ONLY 10:59:04 CDT CPT-04359 CBC with Diff - LAB USE ONLY 10:59:03 CDT 2 CPT-J0897 Prolia 60 mg 15:46:54 FAMILY PROGRAM SPECIALIST CPT-69656 Abx/Therapy Injection 15:46:54 FAMILY PROGRAM SPECIALIST CPT-05181 Microalbumin - LAB USE ONLY 09:41:32 FAMILY PROGRAM SPECIALIST 20 23/01/15 CPT-29841 Free T4 - LAB USE ONLY 09:41:32 FAMILY PROGRAM SPECIALIST CPT-33899 TSH - LAB USE ONLY 09:41:32 FAMILY PROGRAM SPECIALIST CPT-02334 BMP - LAB USE ONLY 09:41:32 FAMILY PROGRAM SPECIALIST CPT-32643 Venipuncture Draw Fee 09:41:32 FAMILY PROGRAM SPECIALIST CPT-76318 First Vx - Ix admin for Medicare patients 11:19:30 CDT CPT-18309 Fluzone High-Dose Intramuscular Suspension 12/07 11:19:30 CDT CPT-J0897 Prolia 60 mg 14:55:42 CDT CPT-18925 Abx/Therapy Injection 14:55:42 CDT CPT-74618 Bone Density - XRAY USE ONLY 10:27:12 CDT 2 CPT-G0439 Subsequent Annual Wellness Exam 17:54:53 CDT CPT-46891 Foot, left, comp min 3V - XRAY USE ONLY 12:22:49 CDT CPT-G0009 Administration of Pneumococcal Vaccine 3 12:18:00 CDT CPT-26902 Pneumovax 23 Injection Injectable 25 MCG /0.5ML 12:18:00 CDT CPT-J0897 Prolia 60 mg 14:14:16 FAMILY PROGRAM SPECIALIST CPT-68188 Abx/Therapy Injection 14:14:15 FAMILY PROGRAM SPECIALIST CPT-87294 Lipid - LAB USE ONLY 10:01:52 FAMILY PROGRAM SPECIALIST 2 CPT-29119 Calcium - LAB USE ONLY 10:01:51 FAMILY PROGRAM SPECIALIST CPT-94928 Venipuncture Draw Fee 10:01:51 FAMILY PROGRAM SPECIALIST CPT-LR Lesion Removal 16:22:01 FAMILY PROGRAM SPECIALIST CPT-82452 TSH - LAB USE ONLY 14:26:02 CDT CPT-49434 CMP - LAB USE ONLY 14:26:01 CDT CPT-78827 CBC with Diff - LAB USE ONLY 14:26:01 CDT 2 CPT-19499 Venipuncture Draw Fee 14:26:01 CDT CPT-21058 First Vx - Ix admin for Medicare patients 13:27:08 CDT CPT-16311 Fluzone High-Dose Intramuscular Suspension 11/26 13:27:08 CDT CPT-G0438 Initial Annual Wellness Exam 14:19:57 CD T CPT-G0009 Administration of Pneumococcal Vaccine 9 11:36:25 CDT CPT-16217 Prevnar 13 Intramuscular Suspension 1 1:36:25 CDT CPT-46884 Prevnar 13 Intramuscular Suspension 1 0:40:58 CDT CPT-J0897 Prolia 60 mg 10:37:16 CDT CPT-66468 Abx/Therapy Injection 10:37:16 CDT CPT-J0897 Prolia 60 mg 16:09:34 FAMILY PROGRAM SPECIALIST CPT-J0897 Prolia 60 mg 11:10:35 FAMILY PROGRAM SPECIALIST CPT-45184 Abx/Therapy Injection 11:10:35 FAMILY PROGRAM SPECIALIST CPT-000 Give Appropriate Flu Vaccine 17:01:15 FAMILY PROGRAM SPECIALIST 2 CPT-29013 Fluzone High Dose (65+) 15:03:08 FAMILY PROGRAM SPECIALIST 02/15 CPT-78581 Immunization Single Admin 15:03:08 FAMILY PROGRAM SPECIALIST 2014 CPT-OV Office Visit 15:58:06 CDT CPT-J0897 Prolia 60 mg 08:45:38 CDT CPT-88689 Abx/Therapy Injection 08:45:38 CDT CPT-J3420 Vitamin B12 1000mcg (Cyanocobalamin) 09:26:20 FAMILY PROGRAM SPECIALIST CPT-52861 Abx/Therapy Injection 09:26:20 FAMILY PROGRAM SPECIALIST CPT-J3420 Vitamin B12 1000mcg (Cyanocobalamin) 09:44:40 FAMILY PROGRAM SPECIALIST CPT-68621 Abx/Therapy Injection 09:44:40 FAMILY PROGRAM SPECIALIST CPT-J3420 Vitamin B12 1000mcg (Cyanocobalamin) 09:15:54 FAMILY PROGRAM SPECIALIST CPT-02690 Abx/Therapy Injection 09:15:54 FAMILY PROGRAM SPECIALIST CPT-J3420 Vitamin B12 1000mcg (Cyanocobalamin) 09:46:44 FAMILY PROGRAM SPECIALIST CPT-76657 Abx/Therapy Injection 09:46:44 FAMILY PROGRAM SPECIALIST CPT-J3420 Vitamin B12 1000mcg (Cyanocobalamin) 09:47:34 FAMILY PROGRAM SPECIALIST CPT-79633 Abx/Therapy Injection 09:47:34 FAMILY PROGRAM SPECIALIST CPT-J3420 Vitamin B12 1000mcg (Cyanocobalamin) 14:35:50 FAMILY PROGRAM SPECIALIST CPT-J3420 Vitamin B12 1000mcg (Cyanocobalamin) 09:25:05 FAMILY PROGRAM SPECIALIST CPT-98786 Abx/Therapy Injection 09:25:05 FAMILY PROGRAM SPECIALIST CPT-G0008 Administration of Influenza Virus Vaccine 13:36:47 CDT CPT-23791 Fluzone High-Dose Intramuscular Suspension 11/15 13:36:47 CDT CPT-J0897 Prolia 60 mg 08:50:41 CDT CPT-02577 Abx/Therapy Injection 08:50:41 CDT CPT-22416 Bone Density 12:06:12 CDT CPT-72712 Bone Density 08:54:40 CDT CPT-OV Office Visit 15:37:02 CDT CPT-51479 Postop F/U Visit 15:47:49 CDT CPT-77859 Postop F/U Visit 15:21:02 CDT [facility]High 07:52:27 CDT 20 20/06/01 CPT-50466 Venipuncture Draw Fee 13:51:18 CDT CPT-56734 Venipuncture Draw Fee 10:14:55 FAMILY PROGRAM SPECIALIST CPT-41797 Venipuncture Draw Fee 13:39:45 FAMILY PROGRAM SPECIALIST CPT-OV Office Visit 15:11:22 FAMILY PROGRAM SPECIALIST CPT-95762 Venipuncture Draw Fee 09:20:49 FAMILY PROGRAM SPECIALIST CPT-93775 Venipuncture Draw Fee 16:52:15 FAMILY PROGRAM SPECIALIST CPT-83183 Venipuncture Draw Fee 10:37:24 FAMILY PROGRAM SPECIALIST CPT-97382 Venipuncture Draw Fee 08:21:21 FAMILY PROGRAM SPECIALIST CPT-15224 Venipuncture Draw Fee 08:30:20 FAMILY PROGRAM SPECIALIST CPT-83922 Venipuncture Draw Fee 14:53:21 FAMILY PROGRAM SPECIALIST CPT-93134 Venipuncture Draw Fee 09:40:56 FAMILY PROGRAM SPECIALIST CPT-01018 Venipuncture Draw Fee 10:30:47 FAMILY PROGRAM SPECIALIST CPT-36553 Venipuncture Draw Fee 10:46:17 FAMILY PROGRAM SPECIALIST CPT-49728 Venipuncture Draw Fee 11:12:45 FAMILY PROGRAM SPECIALIST CPT-86247 Venipuncture Draw Fee 09:53:33 FAMILY PROGRAM SPECIALIST CPT-12360 Venipuncture Draw Fee 11:53:51 FAMILY PROGRAM SPECIALIST CPT-74760 Venipuncture Draw Fee 10:33:50 FAMILY PROGRAM SPECIALIST CPT-20180 Venipuncture Draw Fee 10:05:01 FAMILY PROGRAM SPECIALIST CPT-11476 Venipuncture Draw Fee 14:32:52 FAMILY PROGRAM SPECIALIST CPT-19349 Venipuncture Draw Fee 09:46:13 FAMILY PROGRAM SPECIALIST CPT-80573 Venipuncture Draw Fee 11:34:27 FAMILY PROGRAM SPECIALIST CPT-62524 Venipuncture Draw Fee 13:17:16 FAMILY PROGRAM SPECIALIST CPT-72585 Venipuncture Draw Fee 12:05:39 CDT CPT-04764 Venipuncture Draw Fee 12:49:12 CDT CPT-75418 Venipuncture Draw Fee 12:37:18 CDT CPT-80921 Venipuncture Draw Fee 10:57:11 CDT CPT-50199 Venipuncture Draw Fee 13:47:40 CDT CPT-17225 Venipuncture Draw Fee 10:02:17 CDT CPT-23949 TB Tubersol 17:32:32 CDT CPT-OV Office Visit 16:21:53 CDT CPT-OV Office Visit 15:49:22 CDT CPT-OV Office Visit 17:16:31 CDT CPT-OV Office Visit 10:43:31 CDT
--- OUTSIDE RECORDS SUMMARY | 2019-02-09 11:45 | XMS REPORT | Clinical Summary ---
Author Author Renaldo, Florecita Munoz Organization [facility] [employer] Address Unknown Phone Unavailable Allergies, Adverse Reactions, [...] PhD Hyperpotassemia GERD 530.81 Resolved Kylie Yokum MARINE DIESEL TECHNICIAN Esophageal reflux Health maintenance exam V70.0 Resolved Adolfo Yates MD Routine general medical examination at a health care facility Anemia 285.9 Resolved Kylie Holt MARINE DIESEL TECHNICIAN Anemia, unspecified Personal history of malignant neoplasm of large intestine V10.05 Active Adam Yates MD Personal history of malignant neoplasm of large intestine Hypomagnesemia 275.2 Resolved Kylie Holt MARINE DIESEL TECHNICIAN Disorders of magnesium metabolism Weakness 780.79 [...] Sebaceous cyst, scalp 706.2 Resolved Kylie Yokum MARINE DIESEL TECHNICIAN Sebaceous cyst Cervical lymphadenopathy, anterior, left 785.6 Resolv ed Kylie Yokum MARINE DIESEL TECHNICIAN Enlargement of lymph nodes Need for prophylactic vaccination and inoculation against in fluenza V04.81 Resolved Adam Yates MD Need for prophylactic vaccination and inoculation against influenza Preventive health care V70.0 Resolved Kylie Lundu m MARINE DIESEL TECHNICIAN Routine general medical examination at a health care facility Thyroid nodule, left 241.0 Resolved Selena Yates MD Nontoxic uninodular goiter Screening mammogram V76.12 Resolved Kylie Yokum A PRN Other screening mammogram Mandy 706.2 Resolved Kylie Yokum MARINE DIESEL TECHNICIAN Sebaceous cyst Colon cancer, ascending 153.6 Resolved Kylie Yok um MARINE DIESEL TECHNICIAN Malignant neoplasm of ascending colon Foot pain, left 729.5 Resolved Kylie Yokum MARINE DIESEL TECHNICIAN Pain in limb Splinter 919.6 Resolved Kylie Yokum MARINE DIESEL TECHNICIAN Superficial foreign body (splinter) of other, multiple, and unspecified sites, without major open wound and without mention of infection Rash 782.1 Resolved Kylie Yokum MARINE DIESEL TECHNICIAN Rash and other nonspecific skin eruption Cyst 706.2 Resolved Kylie Yokum MARINE DIESEL TECHNICIAN Sebaceous cyst Body Mass Index 23.0-23.9 Adult Refinement 2017 Kylie Yokum MARINE DIESEL TECHNICIAN Body Mass Index between 19-24, adult [...] RIGHT LOWER QUADRANT ICD-789.03 Inactive Kina Joshua MARINE DIESEL TECHNICIAN ADENOCARCINOMA, COLON, 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 Dick Yates MD ABDOMINAL PAIN, GENERALIZED ICD-789.07 Inactive Hope Benavidez MD PhD FEVER UNSPECIFIED ICD-780.60 Inactive Hope cohn MD PhD UNSPECIFIED VENOUS INSUFFICIENCY ICD-459.81 Elda ctive Adam Yates MD ADENOCARCINOMA, 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 Inac tive Hope Benavidez MD PhD Hyperkalemia ICD-276.7 Inactive Hope Benavidez MD PhD GERD ICD-530.81 Inactive Kylie Yanet MARINE DIESEL TECHNICIAN 2015 Health maintenance exam ICD-V70.0 Bam Yates MD Anemia ICD-285.9 Inactive Kylie Yanet MARINE DIESEL TECHNICIAN 07/24 Hypomagnesemia ICD-275.2 Inactive Kylie Holt MARINE DIESEL TECHNICIAN Weakness ICD-780.79 Inactive Hope Benavidez MD [...] cyst, scalp ICD-706.2 Inactive Tracy hi Yokum MARINE DIESEL TECHNICIAN Cervical lymphadenopathy, anterior, left ICD-785.6 Inactive Kylie Yokum MARINE DIESEL TECHNICIAN Need for prophylactic vaccination and inoculation against in fluenza ICD-V04.81 Inactive Adam Yates MD Preventive health care ICD-V70.0 Inactive Ka thi Yokum MARINE DIESEL TECHNICIAN Thyroid nodule, left ICD-241.0 Inactive Selena Yates MD Screening mammogram ICD-V76.12 Inactive Kylie Yokum MARINE DIESEL TECHNICIAN Mandy ICD-706.2 Inactive Kylie Yokum MARINE DIESEL TECHNICIAN 07/20 Colon cancer, ascending ICD-153.6 Inactive K athi Yokum MARINE DIESEL TECHNICIAN Foot pain, left ICD-729.5 Inactive Kylie Yokum MARINE DIESEL TECHNICIAN Splinter ICD-919.6 Inactive Kylie Yokum MARINE DIESEL TECHNICIAN 2017 Rash ICD-782.1 Inactive Kylie Yokum MARINE DIESEL TECHNICIAN 07/25 Cyst ICD-706.2 Inactive Kylie Yokum MARINE DIESEL TECHNICIAN 08/11 Unspecified fall, initial encounter ICD-E888.9 Inactive Kylie Yokum MARINE DIESEL TECHNICIAN Eye pain, left ICD-379.91 Inactive Kylie Holt [...] MCG ORAL TABLET 1 daily LEVOTHYROXINE SODIUM 02218045680 Active Kylie Holt APRN Active VOLTAREN 1 % TRANSDERMAL GEL apply 2 grams q 6-8 hour to left arm as needed for pain DICLOFENAC SODIUM 55054686408 Active Kylie Marrero Active IMODIUM A-D 2 MG ORAL TABLET 1 tablet twice a day LOPERAMIDE HCL 08890884989 Active Kylie Holt APRN Active COQ10 100 MG ORAL CAPSULE 1 daily COENZYME Q10 531531 46992 Active Fay Alberts Lisa Active VITAMIN D3 2000 UNIT ORAL CAPSULE Melaleuca-One daily CHOLECALCIFEROL 35033821758 Active Kylie Holt APRN Active PROBIOTIC DAILY ORAL CAPSULE Take one daily PROBIO TIC PRODUCT 18562672850 Active Kylie Holt APRN Active IRON 325 (65 Fe) MG ORAL TABLET 1 every other day FERROUS SULFATE 38333006040 No Longer Active Kylie Holt APRN Active FLORANEX ORAL PACKET 1 pack three times daily, for bowel health LACTOBACILLUS 56957688750 No Longer Active Kylie Lundum MARINE DIESEL TECHNICIAN Active LOMOTIL 2.5-0.025 MG ORAL TABLET 1 tab by mouth prn 20 23/10/23 DIPHENOXYLATE-ATROPINE 12033399967 No Longer Active Kylie Yokum MARINE DIESEL TECHNICIAN Active MAGNESIUM GLUCONATE 250 MG ORAL TABLET 1 tab tid 23/10/23 MAGNESIUM GLUCONATE 61054129368 No Longer Active Kylie Yokum MARINE DIESEL TECHNICIAN Active CYANOCOBALAMIN 1000 MCG/ML INJECTION SOLUTION 1 injection ev ruben 2 weeks CYANOCOBALAMIN 61317586349 No Longer Active Kylie Lund um MARINE DIESEL TECHNICIAN Active ATENOLOL 25 MG ORAL TABLET 1/2 pill by mouth daily, fo r headaches, blood pressure ATENOLOL 45958061116 Active Kylie Lundum MARINE DIESEL TECHNICIAN Active PROPRANOLOL HCL 80 MG ORAL TABLET 1 tab tue. and thur. PROPRANOLOL HCL 23313837836 No Longer Active Hope Benavidez MD PhD A ctive VITAMIN D3 4000 IU 1 tab 3 times daily VITAMIN D3 4000 IU No Longer Active Hope Benavidez MD PhD Active BACTRIM DS 800-160 MG ORAL TABLET 1 pill by mouth twice claudio y, for UTI SULFAMETHOXAZOLE-TRIMETHOPRIM 89313063789 No Longer Active Hope Benavidez MD PhD Active PROLIA 60 MG/ML SUBCUTANEOUS SOLUTION 1 shot every 6 months for osteoprosis DENOSUMAB 01578796738 Active Hope Benavidez MD PhD Active CALCIUM + D + K 750-500-40 MG-UNT-MCG ORAL TABLET 1 tab by m outh twice daily CALCIUM-VITAMIN D-VITAMIN K 94692482125 Active Hope valdez MD PhD Active DAILY VALUE MULTIVITAMIN ORAL TABLET 1 tab by mouth twice daily 201 05/16/14 MULTIPLE VITAMIN 92024386312 Active Hope Benavidez MD PhD Acti ve FISH OIL 306 MG CAPS 1 tab by mouth three times daily OMEGA-3 FATTY ACIDS 84594793852 Active Hope Benavidez MD PhD Active LUTEIN 10 MG ORAL TABLET 1 tab daily LUTEIN 34722213 408 Active Hope Benavidez MD PhD Active TRIAMTERENE-HCTZ 37.5-25 MG ORAL TABLET 1 tab by mouth daily 10/22 TRIAMTERENE-HCTZ 81486613011 Active Kylie Holt MARINE DIESEL TECHNICIAN Active CYCLOBENZAPRINE HCL 10 MG ORAL TABLET 1 tablet by mout three times daily as needed for headaches CYCLOBENZAPRINE HCL 30148102248 No Longer Active Adam Yates MD Active OMEPRAZOLE 20 MG ORAL CAPSULE DELAYED RELEASE 1 tablet by mo [facility] daily for GERD OMEPRAZOLE 43898393350 No Longer Active Adam Yates MD Active ZOFRAN 8 MG ORAL TABLET 1 tab by mouth every 12 hours prn 4 ONDANSETRON HCL 59071128426 No Longer Active Adam Yates MD Active PHENADOZ 25 MG RECTAL SUPPOSITORY 1 every 4 hrs. PRN 2 PROMETHAZINE HCL 04964117011 No Longer Active Adam Yates MD A ctive POTASSIUM CHLORIDE 20 MEQ ORAL PACKET by mouth twice a day prn 2 POTASSIUM CHLORIDE 47364614613 No Longer Active Adam Carpenter MD Active PROMETHAZINE HCL 25 MG ORAL TABLET 1 Q. 4 hr. PRN PROMETHAZINE HCL 53113403464 No Longer Active Adam Yates MD Active INNOPRAN XL 120 MG ORAL CAPSULE EXTENDED RELEASE 24 HO UR Take one by mouth daily PROPRANOLOL HCL SR BEADS 48203803006 No Longer Active Adam Yates MD Active FLAGYL 500 MG ORAL TABLET 1 pill by mouth three times daily, for diarrhea METRONIDAZOLE 89935657453 No Longer Active Hope landers MD PhD Active DYAZIDE 37.5-25 MG ORAL CAPSULE 1 qd TRIA MTERENE-HCTZ 71675848651 No Longer Active Hope Benavidez MD PhD Active PROZAC 20 MG ORAL CAPSULE 1 q d FLUOXETINE HCL 82172736698 No Longer Active Hope Benavidez MD PhD Active SIMVASTATIN 40 MG ORAL TABLET 1 qd SIMVAS TATIN 13848466017 No Longer Active Adam Yates MD Active MELOXICAM 15 MG ORAL TABLET 1 qd MELOXICAM 63975180719 No Longer Active Adam Yates MD Active EXCEDRIN EXTRA STRENGTH 250-250-65 MG ORAL TABLET 1-2 q6h SC N headache KOCANBO-[id number] 59910458165 Active Hope Benavidez MD PhD Active FLAGYL 500 MG ORAL TABLET 1 qid METRONIDAZOL E 10275243061 No Longer Active Adam Yates MD Active LEVAQUIN 750 MG ORAL TABLET 1 qd LEVOFLOXAC IN 40563416000 No Longer Active Adam Yates MD Active ADULT ASPIRIN LOW STRENGTH 81 MG ORAL TABLET DISINTEGRATING 1 qd ASPIRIN 19529757940 Active Hope Benavidez MD PhD Active LEVAQUIN 750 MG ORAL TABLET 1 qd LEVAQUIN 750 MG ORAL TABLET 692512 LEVOFLOXACIN Inactive FLAGYL 500 MG ORAL TABLET 1 qid FLAGYL 500 MG ORAL TABLET 096662 METRONIDAZOLE Inactive MELOXICAM 15 MG ORAL TABLET 1 qd MELOXICAM 15 MG ORAL TABLET 339214 MELOXICAM Inactive SIMVASTATIN 40 MG ORAL TABLET 1 qd SIMVASTATIN 40 MG ORAL TABLET 071094 SIMVASTATIN Inactive PROZAC 20 MG ORAL CAPSULE 1 q d PROZAC 20 MG ORAL CAPSULE 681193 FLUOXETINE HCL Inactive DYAZIDE 37.5-25 MG ORAL CAPSULE 1 qd 5 DYAZIDE 37.5-25 MG ORAL CAPSULE 491412 TRIAMTERENE-HCTZ Inactive INNOPRAN XL 120 MG ORAL CAPSULE EXTENDED RELEASE 24 HO UR Take one by mouth daily INNOPRAN XL 120 MG ORAL CAPSULE EXTENDED RELEASE 24 HOUR PROPRANOLOL HCL SR BEADS Inactive PROMETHAZINE HCL 25 MG ORAL TABLET 1 Q. 4 hr. PRN 2013 PROMETHAZINE HCL 25 MG ORAL TABLET 230309 PROMETHAZINE HCL Inactive POTASSIUM CHLORIDE 20 MEQ ORAL PACKET by mouth twice a day prn 2 POTASSIUM CHLORIDE 20 MEQ ORAL PACKET 2827063 POTASSIUM CHLORIDE Inactive PHENADOZ 25 MG RECTAL SUPPOSITORY 1 every 4 hrs. PRN 2 PHENADOZ 25 MG RECTAL SUPPOSITORY 152717 PROMETHAZINE HCL Inactive ZOFRAN 8 MG ORAL TABLET 1 tab by mouth every 12 hours prn 4 ZOFRAN 8 MG ORAL TABLET 048876 ONDANSETRON HCL Inactive OMEPRAZOLE 20 MG ORAL CAPSULE DELAYED RELEASE 1 tablet by mo ut daily for GERD OMEPRAZOLE 20 MG ORAL CAPSULE DELAYED RELEASE 19 8051 OMEPRAZOLE Inactive CYCLOBENZAPRINE HCL 10 MG ORAL TABLET 1 tablet by mout h three times daily as needed for headaches CYCLOBENZAPRINE HCL 10 MG ORAL TABLET 858125 CYCLOBENZAPRINE HCL Inactive VITAMIN D3 4000 IU 1 tab 3 times daily VITAMIN D3 4000 IU Inactive PROPRANOLOL HCL 80 MG ORAL TABLET 1 tab tue. and thur. PROPRANOLOL HCL 80 MG ORAL TABLET 860266 PROPRANOLOL HCL Inacti ve CYANOCOBALAMIN 1000 MCG/ML INJECTION SOLUTION 1 injection ev ruben 2 weeks CYANOCOBALAMIN 1000 MCG/ML INJECTION SOLUTION 30 9594 CYANOCOBALAMIN Inactive MAGNESIUM GLUCONATE 250 MG ORAL TABLET 1 tab tid 23/10/23 MAGNESIUM GLUCONATE 250 MG ORAL TABLET 661619 MAGNESIUM GLUCONATE Inactive LOMOTIL 2.5-0.025 MG ORAL TABLET 1 tab by mouth prn 23/10/23 LOMOTIL 2.5-0.025 MG ORAL TABLET 4251869 DIPHENOXYLATE-ATROPINE Inac tive FLORANEX ORAL PACKET 1 pack three times daily, for bowel health FLORANEX ORAL PACKET 14255264084 LACTOBACILLUS Inactive IRON 325 (65 Fe) MG ORAL TABLET 1 every other day 2015 IRON 325 (65 Fe) MG ORAL TABLET 595864 FERROUS SULFATE Inactive FLAGYL 500 MG ORAL TABLET 1 pill by mouth three times daily, for diarrhea FLAGYL 500 MG ORAL TABLET 348266 METRONIDAZOLE I nactive BACTRIM DS 800-160 MG ORAL TABLET 1 pill by mouth twice claudio y, for UTI BACTRIM DS 800-160 MG ORAL TABLET 651241 SULFAMETHOXAZOLE-TRIMETHOPRIM Inactive Advance Directives Directive Description Start [...] ... - Chemistry sodium, serum 141 mmol/L 855-805 1916/01/10 potassium, serum 3.7 mmol/L 3.5-5.2 chloride, serum 101 mmol/L 98-107 carbon dioxide, venous blood 31.0 mmol/L 21.0-32 .0 blood glucose 96 mg/dL 65-95 calcium, serum 9.5 mg/dL 8.5-10.1 urea nitrogen, blood 21 mg/dL 7-18 creatinine, serum 1.40 mg/dL 0.60-1.30 Estimated Glomerular Filtration Rate (calc) 39 (?) mL/min/1.73m2 = OR > 60 mL/min cholesterol, serum 211 mg/dL 708-147 5578/01/10 triglyceride, serum, fasting 77 mg/dL 30-200 HDL [...] 0.82 ng/dL 0.59-1.17 sodium, serum 142 mmol/L 334-198 8905/04/16 carbon dioxide, venous blood 30.0 mmol/L 21.0-32 [...] - Chelle radha sodium, serum 142 mmol/L 538-788 8592/11/02 potassium, serum 3.4 mmol/L 3.5-5.2 chloride, serum [...] 0.59-1.17 Encounters Code Encounter Date Provider Facility CPT-18701 [id number] Vst-Est Level III 09:15:19 [facility] [place] Level 4 Est. Patient 15:35:24 EDUCATION FACULTY MEMBER Adam Yates MD [facility] CPT-16265 Level 3 New Patient 12:08:54 EDUCATION FACULTY MEMBER Adam Yates MD [facility] CPT-84619 [id number] Vst-Est Level IV 19:48:30 EDUCATION FACULTY MEMBER Tracy Holt [facility] [place] CPT-50377 [id number] Vst-Est Level III 14:29:19 CDT Fiorella Holt [facility] [place] CPT-79184 Level 2 Est. Patient 14:58:26 CDT Kylie boyd [facility] [place] CPT-05073 Level 3 Est. Patient 08:15:24 EDUCATION FACULTY MEMBER Kylie boyd [facility] CPT-10161 Level 2 Est. Patient 14:27:16 EDUCATION FACULTY MEMBER [facility] CPT-48630 Level 3 Est. Patient 17:54:48 CDT Kylie boyd [facility] CPT-84610 Level 3 Est. Patient 16:26:30 CDT Kina blackmon [facility] CPT-70583 Level 3 New Patient 16:22:01 EDUCATION FACULTY MEMBER Adam Yates MD [facility] CPT-71321 Level 4 Est. Patient 17:00:48 CDT [facility] CPT-80149 Level 3 Est. Patient 13:15:54 CDT Kylie boyd [facility] CPT-20807 Level 3 Est. Patient 09:10:11 CDT Kylie Lund [facility] CPT-37217 Level 4 Est. Patient 12:08:30 EDUCATION FACULTY MEMBER Hope cohn MD [facility] CPT-20120 Level 4 Est. Patient 19:08:42 EDUCATION FACULTY MEMBER Hope cohn MD PhD [facility] CPT-20021 Level 4 Est. Patient 20:04:51 CDT Hope cohn MD PhD [facility] CPT-43362 Level 3 New Patient 01:46:11 EDUCATION FACULTY MEMBER Hope landers MD PhD [facility] Procedures Code Procedure Name Date Entry Date Standard Desc ription CPT-J0897 Prolia 60 mg 10:36:55 CDT CPT-00567 Abx/Therapy Injection 10:36:55 CDT CPT-80004 Venipuncture Draw Fee 13:34:11 CDT CPT-G0439 Subsequent Annual Wellness Exam 09:15:19 CDT CPT-59765 Postop F/U Visit 15:45:41 CDT CPT-05650 Sono Soft Tissue Head and Neck - XRAY US E ONLY 11:56:06 EDUCATION FACULTY MEMBER CPT-25082 Abx/Therapy Injection 09:40:08 EDUCATION FACULTY MEMBER CPT-J0897 Prolia 60 mg 09:40:08 EDUCATION FACULTY MEMBER CPT-98979 First Vx - Ix admin for Medicare patients 02/08 10:02:45 CDT CPT-78914 Fluzone Quadrivalent Intramuscular Suspe nsion 0.5 ML 10:02:45 CDT CPT-55539 Magnesium - LAB USE ONLY 09:41:00 CDT 12/09 CPT-39314 Renal Panel - LAB USE ONLY 09:41:00 CDT 201 09/17/01 CPT-51020 Venipuncture Draw Fee 09:41:00 CDT CPT-61137 Calcium - LAB USE ONLY 17:25:11 CDT CPT-J0897 Prolia 60 mg 15:10:59 CDT CPT-93804 Abx/Therapy Injection 15:10:59 CDT CPT-G0439 Subsequent Annual Wellness Exam 14:29:19 CDT CPT-63173 Venipuncture Draw Fee 10:59:04 CDT CPT-07928 CMP - LAB USE ONLY 10:59:04 CDT CPT-88586 CBC with Diff - LAB USE ONLY 10:59:03 CDT 2 CPT-J0897 Prolia 60 mg 15:46:54 EDUCATION FACULTY MEMBER CPT-20238 Abx/Therapy Injection 15:46:54 EDUCATION FACULTY MEMBER CPT-81971 Microalbumin - LAB USE ONLY 09:41:32 EDUCATION FACULTY MEMBER 20 23/01/15 CPT-71922 Free T4 - LAB USE ONLY 09:41:32 EDUCATION FACULTY MEMBER CPT-27061 TSH - LAB USE ONLY 09:41:32 EDUCATION FACULTY MEMBER CPT-97882 BMP - LAB USE ONLY 09:41:32 EDUCATION FACULTY MEMBER CPT-43857 Venipuncture Draw Fee 09:41:32 EDUCATION FACULTY MEMBER CPT-75365 First Vx - Ix admin for Medicare patients 11:19:30 CDT CPT-56483 Fluzone High-Dose Intramuscular Suspension 12/07 11:19:30 CDT CPT-J0897 Prolia 60 mg 14:55:42 CDT CPT-16522 Abx/Therapy Injection 14:55:42 CDT CPT-76407 Bone Density - XRAY USE ONLY 10:27:12 CDT 2 CPT-G0439 [facility] Annual Wellness Exam 17:54:53 CDT CPT-03920 Foot, left, comp min 3V - XRAY USE ONLY 12:22:49 CDT CPT-G0009 Administration of Pneumococcal Vaccine 3 12:18:00 CDT CPT-09758 Pneumovax 23 Injection Injectable 25 MCG /0.5ML 12:18:00 CDT CPT-J0897 Prolia 60 mg 14:14:16 EDUCATION FACULTY MEMBER CPT-07202 Abx/Therapy Injection 14:14:15 EDUCATION FACULTY MEMBER CPT-50832 Lipid - LAB USE ONLY 10:01:52 EDUCATION FACULTY MEMBER 2 CPT-39199 Calcium - LAB USE ONLY 10:01:51 EDUCATION FACULTY MEMBER CPT-25187 Venipuncture Draw Fee 10:01:51 EDUCATION FACULTY MEMBER CPT-LR Lesion Removal 16:22:01 EDUCATION FACULTY MEMBER CPT-58545 TSH - LAB USE ONLY 14:26:02 CDT CPT-51324 CMP - LAB USE ONLY 14:26:01 CDT CPT-99045 CBC with Diff - LAB USE ONLY 14:26:01 CDT 2 CPT-03953 Venipuncture Draw Fee 14:26:01 CDT CPT-79723 First Vx - Ix admin for Medicare patients 13:27:08 CDT CPT-19105 Fluzone High-Dose Intramuscular Suspension 11/26 13:27:08 CDT CPT-G0438 Initial Annual Wellness Exam 14:19:57 CD T CPT-G0009 Administration of Pneumococcal Vaccine 9 11:36:25 CDT CPT-70836 Prevnar 13 Intramuscular Suspension 1 1:36:25 CDT CPT-05739 Prevnar 13 Intramuscular Suspension 1 0:40:58 CDT CPT-J0897 Prolia 60 mg 10:37:16 CDT CPT-97097 Abx/Therapy Injection 10:37:16 CDT CPT-J0897 Prolia 60 mg 16:09:34 EDUCATION FACULTY MEMBER CPT-J0897 Prolia 60 mg 11:10:35 EDUCATION FACULTY MEMBER CPT-80423 Abx/Therapy Injection 11:10:35 EDUCATION FACULTY MEMBER CPT-000 Give Appropriate Flu Vaccine 17:01:15 EDUCATION FACULTY MEMBER 2 CPT-93037 Fluzone High Dose (65+) 15:03:08 EDUCATION FACULTY MEMBER 02/15 CPT-02109 Immunization Single Admin 15:03:08 EDUCATION FACULTY MEMBER 2014 CPT-OV Office Visit 15:58:06 CDT CPT-J0897 Prolia 60 mg 08:45:38 CDT CPT-11279 Abx/Therapy Injection 08:45:38 CDT CPT-J3420 Vitamin B12 1000mcg (Cyanocobalamin) 09:26:20 EDUCATION FACULTY MEMBER CPT-81502 Abx/Therapy Injection 09:26:20 EDUCATION FACULTY MEMBER CPT-J3420 Vitamin B12 1000mcg (Cyanocobalamin) 09:44:40 EDUCATION FACULTY MEMBER CPT-01271 Abx/Therapy Injection 09:44:40 EDUCATION FACULTY MEMBER CPT-J3420 Vitamin B12 1000mcg (Cyanocobalamin) 09:15:54 EDUCATION FACULTY MEMBER CPT-95561 Abx/Therapy Injection 09:15:54 EDUCATION FACULTY MEMBER CPT-J3420 Vitamin B12 1000mcg (Cyanocobalamin) 09:46:44 EDUCATION FACULTY MEMBER CPT-10097 Abx/Therapy Injection 09:46:44 EDUCATION FACULTY MEMBER CPT-J3420 Vitamin B12 1000mcg (Cyanocobalamin) 09:47:34 EDUCATION FACULTY MEMBER CPT-39806 Abx/Therapy Injection 09:47:34 EDUCATION FACULTY MEMBER CPT-J3420 Vitamin B12 1000mcg (Cyanocobalamin) 14:35:50 EDUCATION FACULTY MEMBER CPT-J3420 Vitamin B12 1000mcg (Cyanocobalamin) 09:25:05 EDUCATION FACULTY MEMBER CPT-76461 Abx/Therapy Injection 09:25:05 EDUCATION FACULTY MEMBER CPT-G0008 Administration of Influenza Virus Vaccine 13:36:47 CDT CPT-68184 Fluzone High-Dose Intramuscular Suspension 11/15 13:36:47 CDT CPT-J0897 Prolia 60 mg 08:50:41 CDT CPT-29982 Abx/Therapy Injection 08:50:41 CDT CPT-29201 Bone Density 12:06:12 CDT CPT-66739 Bone Density 08:54:40 CDT CPT-OV Office Visit 15:37:02 CDT CPT-99141 Postop F/U Visit 15:47:49 CDT CPT-99988 Postop F/U Visit 15:21:02 CDT CPT-TCMH Transitional Care Mgmt-High 07:52:27 CDT 20 20/06/01 CPT-54138 Venipuncture Draw Fee 13:51:18 CDT CPT-30561 Venipuncture Draw Fee 10:14:55 EDUCATION FACULTY MEMBER CPT-40651 Venipuncture Draw Fee 13:39:45 EDUCATION FACULTY MEMBER CPT-OV Office Visit 15:11:22 EDUCATION FACULTY MEMBER CPT-70784 Venipuncture Draw Fee 09:20:49 EDUCATION FACULTY MEMBER CPT-72670 Venipuncture Draw Fee 16:52:15 EDUCATION FACULTY MEMBER CPT-37154 Venipuncture Draw Fee 10:37:24 EDUCATION FACULTY MEMBER CPT-39477 Venipuncture Draw Fee 08:21:21 EDUCATION FACULTY MEMBER CPT-52446 Venipuncture Draw Fee 08:30:20 EDUCATION FACULTY MEMBER CPT-99912 Venipuncture Draw Fee 14:53:21 EDUCATION FACULTY MEMBER CPT-53617 Venipuncture Draw Fee 09:40:56 EDUCATION FACULTY MEMBER CPT-65966 Venipuncture Draw Fee 10:30:47 EDUCATION FACULTY MEMBER CPT-56610 Venipuncture Draw Fee 10:46:17 EDUCATION FACULTY MEMBER CPT-69471 Venipuncture Draw Fee 11:12:45 EDUCATION FACULTY MEMBER CPT-70314 Venipuncture Draw Fee 09:53:33 EDUCATION FACULTY MEMBER CPT-90559 Venipuncture Draw Fee 11:53:51 EDUCATION FACULTY MEMBER CPT-81636 Venipuncture Draw Fee 10:33:50 EDUCATION FACULTY MEMBER CPT-60367 Venipuncture Draw Fee 10:05:01 EDUCATION FACULTY MEMBER CPT-72566 Venipuncture Draw Fee 14:32:52 EDUCATION FACULTY MEMBER CPT-47198 Venipuncture Draw Fee 09:46:13 EDUCATION FACULTY MEMBER CPT-88621 Venipuncture Draw Fee 11:34:27 EDUCATION FACULTY MEMBER CPT-83674 Venipuncture Draw Fee 13:17:16 EDUCATION FACULTY MEMBER CPT-87273 Venipuncture Draw Fee 12:05:39 CDT CPT-09208 Venipuncture Draw Fee 12:49:12 CDT CPT-16868 Venipuncture Draw Fee 12:37:18 CDT CPT-12271 Venipuncture Draw Fee 10:57:11 CDT CPT-70720 Venipuncture Draw Fee 13:47:40 CDT CPT-85656 Venipuncture Draw Fee 10:02:17 CDT CPT-56545 TB Tubersol 17:32:32 CDT CPT-OV Office Visit 16:21:53 CDT CPT-OV Office Visit 15:49:22 CDT CPT-OV Office Visit 17:16:31 CDT CPT-OV Office Visit 10:43:31 CDT
--- OUTSIDE RECORDS SUMMARY | 2019-02-09 11:45 | XMS REPORT | Clinical Summary ---
Author Author Renaldo, Florecita Munoz Organization [facility] [employer] Address Unknown Phone Unavailable Allergies, Adverse Reactions, [...] PhD Hyperpotassemia GERD 530.81 Resolved Kylie Yokum [employer] Esophageal reflux Health maintenance exam V70.0 Resolved Adolfo Yates MD Routine general medical examination at a health care facility Anemia 285.9 Resolved Kylie Yanet [employer] Anemia, unspecified Personal history of malignant neoplasm of large intestine V10.05 Active Adam Yates MD Personal history of malignant neoplasm of large intestine Hypomagnesemia 275.2 Resolved Kylie Yanet [employer] Disorders of magnesium metabolism Weakness 780.79 Resolved [...] Sebaceous cyst, scalp 706.2 Resolved Kylie Yokum [employer] Sebaceous cyst Cervical lymphadenopathy, anterior, left 785.6 Resolv ed Kylie Yokum [employer] Enlargement of lymph nodes Need for prophylactic vaccination and inoculation against in fluenza V04.81 Resolved Adam Yates MD Need for prophylactic vaccination and inoculation against influenza Preventive health care V70.0 Resolved Kylie Lundu m [employer] Routine general medical examination at a health care facility Thyroid nodule, left 241.0 Resolved Selena Yates MD Nontoxic uninodular goiter Screening mammogram V76.12 Resolved Kylie Yokum A PRN Other screening mammogram Mandy 706.2 Resolved Kylie Yokum [employer] Sebaceous cyst Colon cancer, ascending 153.6 Resolved Kylie Yok um [employer] Malignant neoplasm of ascending colon Foot pain, left 729.5 Resolved Kylie Yokum [employer] Pain in limb Splinter 919.6 Resolved Kylie Yokum [employer] Superficial foreign body (splinter) of other, multiple, and unspecified sites, without major open wound and without mention of infection Rash 782.1 Resolved Kylie Yokum [employer] Rash and other nonspecific skin eruption Cyst 706.2 Resolved Kylie Yokum [employer] Sebaceous cyst Body Mass Index 23.0-23.9 Adult Refinement 2017 Kylie Yokum [employer] Body Mass Index between 19-24, adult BMI [...] RIGHT LOWER QUADRANT ICD-789.03 Inactive Kina Joshua [employer] ADENOCARCINOMA, COLON, 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 Dick Yates MD ABDOMINAL PAIN, GENERALIZED ICD-789.07 Inactive Hope Benavidez MD PhD FEVER UNSPECIFIED ICD-780.60 Inactive Hope cohn MD PhD UNSPECIFIED VENOUS INSUFFICIENCY ICD-459.81 Elda ctive Adam Yates MD ADENOCARCINOMA, 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 Inac tive Hope Benavidez MD PhD Hyperkalemia ICD-276.7 Inactive Hope Benavidez MD PhD GERD ICD-530.81 Inactive Kylieshubham oHlt [employer] 2015 Health maintenance exam ICD-V70.0 Inactive Adolfo Yates MD Anemia ICD-285.9 Inactive Kylie Yanet [employer] 07/24 Hypomagnesemia ICD-275.2 Inactive Kylie Holt [employer] Weakness ICD-780.79 Inactive Hope Benavidez MD P [...] cyst, scalp ICD-706.2 Inactive Tracy hi Yokum [employer] Cervical lymphadenopathy, anterior, left ICD-785.6 Inactive Kylie Yokum [employer] Need for prophylactic vaccination and inoculation against in fluenza ICD-V04.81 Bam Yates MD Colon cancer ICD-153.9 Bam luna MD Thyroid nodule, left ICD-241.0 Bam Yates MD Screening mammogram ICD-V76.12 Inactive Kylie Yokum [employer] Mandy ICD-706.2 Inactive Kylie Yokum [employer] 07/20 Colon cancer, ascending ICD-153.6 Inactive K athi Yokum [employer] Foot pain, left ICD-729.5 Inactive Kylie Yokum [employer] Rash ICD-782.1 Inactive Kylie Yokum [employer] 07/25 Cyst ICD-706.2 Inactive Kylie Yokum [employer] 08/11 Unspecified fall, initial encounter ICD-E888.9 Inactive Kylie Yokum [employer] Eye pain, left ICD-379.91 Inactive Kylie Yokum [employer] Pharyngitis, acute ICD-074.0 Bam Yates MD Hypomagnesemia ICD-275.2 Inactive Adam Franklin MD Hypokalemia ICD-276.8 Inactive Adam enamorado MD Enlarged thyroid ICD-240.9 Inactive Adam Yates MD Underweight Inactive LETY Nation 05/17 Follicular adenoma, thyroid ICD-226 Inactive Adam Yates MD Preventive health care, adult ICD-V70.0 Inacti ve Kylieshubham Holt APRN Preventive health care ICD-V70.0 Inactive Fiorella Lundoliver REYES Splinter ICD-919.6 Inactive Kylie Escalonapari REYES 2017 Medication List Medication Instructions Start Date Stop Date Generic Name NDC Status Provider Patient Instruction LEVOTHYROXINE SODIUM 50 MCG ORAL TABLET 1 daily LEVOTHYROXINE SODIUM 05115105457 Active Kylie Holt APRN Active VOLTAREN 1 % TRANSDERMAL GEL apply 2 grams q 6-8 hour to left arm as needed for pain DICLOFENAC SODIUM 05285447522 Active Kylie Marrero Active IMODIUM A-D 2 MG ORAL TABLET 1 tablet twice a day LOPERAMIDE HCL 66897461448 Active Kylie Holt APRN Active COQ10 100 MG ORAL CAPSULE 1 daily COENZYME Q10 332086 99933 Active LETY [place] Active VITAMIN D3 2000 UNIT ORAL CAPSULE Melaleuca-One daily CHOLECALCIFEROL 10896011909 Active Kylie Holt APRN Active PROBIOTIC DAILY ORAL CAPSULE Take one daily PROBIO TIC PRODUCT 02352719584 Active Kylie Holt APRN Active IRON 325 (65 Fe) MG ORAL TABLET 1 every other day FERROUS SULFATE 77892998284 No Longer Active Kylie Holt APRN Active FLORANEX ORAL PACKET 1 pack three times daily, for bowel health LACTOBACILLUS 46301431025 No Longer Active Kylie Lundum [employer] Active LOMOTIL 2.5-0.025 MG ORAL TABLET 1 tab by mouth prn 20 23/10/23 DIPHENOXYLATE-ATROPINE 61092379947 No Longer Active Kylie Yokum [employer] Active MAGNESIUM GLUCONATE 250 MG ORAL TABLET 1 tab tid 23/10/23 MAGNESIUM GLUCONATE 90812261052 No Longer Active Kylie Yokum [employer] Active CYANOCOBALAMIN 1000 MCG/ML INJECTION SOLUTION 1 injection ev ruben 2 weeks CYANOCOBALAMIN 70443920484 No Longer Active Kylie Lund um [employer] Active ATENOLOL 25 MG ORAL TABLET 1/2 pill by mouth daily, fo r headaches, blood pressure ATENOLOL 97696602834 Active Kylie Yokum [employer] Active PROPRANOLOL HCL 80 MG ORAL TABLET 1 tab tue. and thur. PROPRANOLOL HCL 27494549525 No Longer Active Hope Benavidez MD PhD A ctive VITAMIN D3 4000 IU 1 tab 3 times daily VITAMIN D3 4000 IU No Longer Active Hope Benavidez MD PhD Active BACTRIM DS 800-160 MG ORAL TABLET 1 pill by mouth twice claudio y, for UTI SULFAMETHOXAZOLE-TRIMETHOPRIM 30983712934 No Longer Active Hope Benavidez MD PhD Active PROLIA 60 MG/ML SUBCUTANEOUS SOLUTION 1 shot every 6 months for osteoprosis DENOSUMAB 47955039581 Active Hope Benavidez MD PhD Active CALCIUM + D + K 750-500-40 MG-UNT-MCG ORAL TABLET 1 tab by m outh twice daily CALCIUM-VITAMIN D-VITAMIN K 80941574640 Active Hope valdez MD PhD Active DAILY VALUE MULTIVITAMIN ORAL TABLET 1 tab by mouth twice daily 201 05/16/14 MULTIPLE VITAMIN 09856940934 Active Hope Benavidez MD PhD Acti ve FISH OIL 306 MG CAPS 1 tab by mouth three times daily OMEGA-3 FATTY ACIDS 42403891195 Active Hope Benavidez MD PhD Active LUTEIN 10 MG ORAL TABLET 1 tab daily LUTEIN 72200646 408 Active Hope Benavidez MD PhD Active TRIAMTERENE-HCTZ 37.5-25 MG ORAL TABLET 1 tab by mouth daily 10/22 TRIAMTERENE-HCTZ 96165439526 Active Kylie Holt [employer] Active CYCLOBENZAPRINE HCL 10 MG ORAL TABLET 1 tablet by mout h three times daily as needed for headaches CYCLOBENZAPRINE HCL 18655165259 No Longer Active Aadm Yates MD Active OMEPRAZOLE 20 MG ORAL CAPSULE DELAYED RELEASE 1 tablet by mo [facility] daily for GERD OMEPRAZOLE 98799980997 No Longer Active Adam Yates MD Active ZOFRAN 8 MG ORAL TABLET 1 tab by mouth every 12 hours prn 4 ONDANSETRON HCL 42701594493 No Longer Active Adam Yates MD Active PHENADOZ 25 MG RECTAL SUPPOSITORY 1 every 4 hrs. PRN 2 PROMETHAZINE HCL 33350063527 No Longer Active Adam Yates MD A ctive POTASSIUM CHLORIDE 20 MEQ ORAL PACKET by mouth twice a day prn 2 POTASSIUM CHLORIDE 92504257689 No Longer Active Adam Carpenter MD Active PROMETHAZINE HCL 25 MG ORAL TABLET 1 Q. 4 hr. PRN PROMETHAZINE HCL 54280706732 No Longer Active Adam Yates MD Active INNOPRAN XL 120 MG ORAL CAPSULE EXTENDED RELEASE 24 HO UR Take one by mouth daily PROPRANOLOL HCL SR BEADS 37099608502 No Longer Active Adam Yates MD Active FLAGYL 500 MG ORAL TABLET 1 pill by mouth three times daily, for diarrhea METRONIDAZOLE 55818362721 No Longer Active Hope landers MD PhD Active DYAZIDE 37.5-25 MG ORAL CAPSULE 1 qd TRIA MTERENE-HCTZ 04611161366 No Longer Active Hope Benavidez MD PhD Active PROZAC 20 MG ORAL CAPSULE 1 q d FLUOXETINE HCL 64488684338 No Longer Active Hope Benavidez MD PhD Active SIMVASTATIN 40 MG ORAL TABLET 1 qd SIMVAS TATIN 25951429248 No Longer Active Adam Yates MD Active MELOXICAM 15 MG ORAL TABLET 1 qd MELOXICAM 43958104256 No Longer Active Adam Yates MD Active EXCEDRIN EXTRA STRENGTH 250-250-65 MG ORAL TABLET 1-2 q6h DE N headache [id number]-TJRMEOME 09008342299 Active Hope Benavidez MD PhD Active FLAGYL 500 MG ORAL TABLET 1 qid METRONIDAZOL E 89613862954 No Longer Active Adam Yates MD Active LEVAQUIN 750 MG ORAL TABLET 1 qd LEVOFLOXAC IN 19980638910 No Longer Active Adam Yates MD Active ADULT ASPIRIN LOW STRENGTH 81 MG ORAL TABLET DISINTEGRATING 1 qd ASPIRIN 65429547603 Active Hope Benavidez MD PhD Active LEVAQUIN 750 MG ORAL TABLET 1 qd LEVAQUIN 750 MG ORAL TABLET 373682 LEVOFLOXACIN Inactive FLAGYL 500 MG ORAL TABLET 1 qid FLAGYL 500 MG ORAL TABLET 424070 METRONIDAZOLE Inactive MELOXICAM 15 MG ORAL TABLET 1 qd MELOXICAM 15 MG ORAL TABLET 182821 MELOXICAM Inactive SIMVASTATIN 40 MG ORAL TABLET 1 qd SIMVASTATIN 40 MG ORAL TABLET 942789 SIMVASTATIN Inactive PROZAC 20 MG ORAL CAPSULE 1 q d PROZAC 20 MG ORAL CAPSULE 308184 FLUOXETINE HCL Inactive DYAZIDE 37.5-25 MG ORAL CAPSULE 1 qd 5 DYAZIDE 37.5-25 MG ORAL CAPSULE 042026 TRIAMTERENE-HCTZ Inactive INNOPRAN XL 120 MG ORAL CAPSULE EXTENDED RELEASE 24 HO UR Take one by mouth daily INNOPRAN XL 120 MG ORAL CAPSULE EXTENDED RELEASE 24 HOUR PROPRANOLOL HCL SR BEADS Inactive PROMETHAZINE HCL 25 MG ORAL TABLET 1 Q. 4 hr. PRN 2013 PROMETHAZINE HCL 25 MG ORAL TABLET 721793 PROMETHAZINE HCL Inactive POTASSIUM CHLORIDE 20 MEQ ORAL PACKET by mouth twice a day prn 2 POTASSIUM CHLORIDE 20 MEQ ORAL PACKET 5065436 POTASSIUM CHLORIDE Inactive PHENADOZ 25 MG RECTAL SUPPOSITORY 1 every 4 hrs. PRN 2 PHENADOZ 25 MG RECTAL SUPPOSITORY 236723 PROMETHAZINE HCL Inactive ZOFRAN 8 MG ORAL TABLET 1 tab by mouth every 12 hours prn 4 ZOFRAN 8 MG ORAL TABLET 855793 ONDANSETRON HCL Inactive OMEPRAZOLE 20 MG ORAL CAPSULE DELAYED RELEASE 1 tablet by mo ut daily for GERD OMEPRAZOLE 20 MG ORAL CAPSULE DELAYED RELEASE 19 8051 OMEPRAZOLE Inactive CYCLOBENZAPRINE HCL 10 MG ORAL TABLET 1 tablet by mout h three times daily as needed for headaches CYCLOBENZAPRINE HCL 10 MG ORAL TABLET 428079 CYCLOBENZAPRINE HCL Inactive VITAMIN D3 4000 IU 1 tab 3 times daily VITAMIN D3 4000 IU Inactive PROPRANOLOL HCL 80 MG ORAL TABLET 1 tab tue. and thur. PROPRANOLOL HCL 80 MG ORAL TABLET 016907 PROPRANOLOL HCL Inacti ve CYANOCOBALAMIN 1000 MCG/ML INJECTION SOLUTION 1 injection ev ruben 2 weeks CYANOCOBALAMIN 1000 MCG/ML INJECTION SOLUTION 30 9594 CYANOCOBALAMIN Inactive MAGNESIUM GLUCONATE 250 MG ORAL TABLET 1 tab tid 23/10/23 MAGNESIUM GLUCONATE 250 MG ORAL TABLET 735866 MAGNESIUM GLUCONATE Inactive LOMOTIL 2.5-0.025 MG ORAL TABLET 1 tab by mouth prn 20 23/10/23 LOMOTIL 2.5-0.025 MG ORAL TABLET 8303766 DIPHENOXYLATE-ATROPINE Inac tive FLORANEX ORAL PACKET 1 pack three times daily, for bowel health FLORANEX ORAL PACKET 77620188195 LACTOBACILLUS Inactive IRON 325 (65 Fe) MG ORAL TABLET 1 every other day 2015 IRON 325 (65 Fe) MG ORAL TABLET 798752 FERROUS SULFATE Inactive FLAGYL 500 MG ORAL TABLET 1 pill by mouth three times daily, for diarrhea FLAGYL 500 MG ORAL TABLET 699937 METRONIDAZOLE I nactive BACTRIM DS 800-160 MG ORAL TABLET 1 pill by mouth twice claudio y, for UTI BACTRIM DS 800-160 MG ORAL TABLET 650290 SULFAMETHOXAZOLE-TRIMETHOPRIM Inactive Advance Directives Directive Description Start [...] ... - Chemistry sodium, serum 141 mmol/L 829-466 0881/01/10 potassium, serum 3.7 mmol/L 3.5-5.2 chloride, serum 101 mmol/L 98-107 carbon dioxide, venous blood 31.0 mmol/L 21.0-32 .0 blood glucose 96 mg/dL 65-95 calcium, serum 9.5 mg/dL 8.5-10.1 urea nitrogen, blood 21 mg/dL 7-18 creatinine, serum 1.40 mg/dL 0.60-1.30 Estimated Glomerular Filtration Rate (calc) 39 (?) mL/min/1.73m2 = OR > 60 mL/min cholesterol, serum 211 mg/dL 221-933 5491/01/10 triglyceride, serum, fasting 77 mg/dL 30-200 HDL [...] 0.82 ng/dL 0.59-1.17 sodium, serum 142 mmol/L 654-879 1156/04/16 carbon dioxide, venous blood 30.0 mmol/L 21.0-32 [...] - Chelle radha sodium, serum 142 mmol/L 540-756 8576/11/02 potassium, serum 3.4 mmol/L 3.5-5.2 chloride, serum [...] 0.59-1.17 Encounters Code Encounter Date Provider Facility CPT-02700 [id number] Vst-Est Level III 09:15:19 [facility] [place] [facility] Level 4 Est. Patient 15:35:24 [employer] Adam Yates MD [facility] CPT-83573 Level 3 New Patient 12:08:54 [employer] Adam Yates MD [facility] CPT-93964 [id number] Vst-Est Level IV 19:48:30 [employer] Tracy Holt [facility] [place] CPT-99815 35453-Yqs Vst-Est Level III 14:29:19 CDT Fiorella Holt [facility] [place] CPT-70445 Level 2 Est. Patient 14:58:26 CDT Kylie boyd [facility] [place] CPT-70584 Level 3 Est. Patient 08:15:24 [employer] Kylie boyd [facility] CPT-01469 Level 2 Est. Patient 14:27:16 [employer] [facility] CPT-06223 Level 3 Est. Patient 17:54:48 CDT Kylie boyd [facility] CPT-60755 Level 3 Est. Patient 16:26:30 CDT Kina blackmon [facility] CPT-84584 Level 3 New Patient 16:22:01 [employer] Adam Yates MD [facility] CPT-19744 Level 4 Est. Patient 17:00:48 CDT Kylie boyd [facility] CPT-48250 Level 3 Est. Patient 13:15:54 CDT Kylie boyd [facility] CPT-44674 Level 3 Est. Patient 09:10:11 CDT Kylie Lund [facility] CPT-25958 Level 4 Est. Patient 12:08:30 [employer] Hope cohn MD [facility] CPT-28205 Level 4 Est. Patient 19:08:42 [employer] Hope cohn MD PhD [facility] CPT-10154 Level 4 Est. Patient 20:04:51 CDT Hope cohn MD PhD [facility] CPT-92305 Level 3 New Patient 01:46:11 [employer] Hope landers MD PhD [facility] Procedures Code Procedure Name Date Entry Date Standard Desc ription CPT-J0897 Prolia 60 mg 10:36:55 CDT CPT-43658 Abx/Therapy Injection 10:36:55 CDT CPT-17117 Venipuncture Draw Fee 13:34:11 CDT CPT-G0439 Subsequent Annual Wellness Exam 09:15:19 CDT CPT-65984 Postop F/U Visit 15:45:41 CDT CPT-99285 Sono Soft Tissue Head and Neck - XRAY US E ONLY 11:56:06 [employer] CPT-44455 Abx/Therapy Injection 09:40:08 [employer] CPT-J0897 Prolia 60 mg 09:40:08 [employer] CPT-24989 First Vx - Ix admin for Medicare patients 02/08 10:02:45 CDT CPT-57949 Fluzone Quadrivalent Intramuscular Suspe nsion 0.5 ML 10:02:45 CDT CPT-82933 Magnesium - LAB USE ONLY 09:41:00 CDT 12/09 CPT-54937 Renal Panel - LAB USE ONLY 09:41:00 CDT 201 09/17/01 CPT-37165 Venipuncture Draw Fee 09:41:00 CDT CPT-36135 Calcium - LAB USE ONLY 17:25:11 CDT CPT-J0897 Prolia 60 mg 15:10:59 CDT CPT-77417 Abx/Therapy Injection 15:10:59 CDT CPT-G0439 Subsequent Annual Wellness Exam 14:29:19 CDT CPT-25685 Venipuncture Draw Fee 10:59:04 CDT CPT-80010 CMP - LAB USE ONLY 10:59:04 CDT CPT-81318 CBC with Diff - LAB USE ONLY 10:59:03 CDT 2 CPT-J0897 Prolia 60 mg 15:46:54 [employer] CPT-56717 Abx/Therapy Injection 15:46:54 [employer] CPT-85558 Microalbumin - LAB USE ONLY 09:41:32 [employer] 20 23/01/15 CPT-62033 Free T4 - LAB USE ONLY 09:41:32 [employer] CPT-93555 TSH - LAB USE ONLY 09:41:32 [employer] CPT-48566 BMP - LAB USE ONLY 09:41:32 [employer] CPT-20612 Venipuncture Draw Fee 09:41:32 [employer] CPT-30772 First Vx - Ix admin for Medicare patients 11:19:30 CDT CPT-35813 Fluzone High-Dose Intramuscular Suspension 12/07 11:19:30 CDT CPT-J0897 Prolia 60 mg 14:55:42 CDT CPT-71479 Abx/Therapy Injection 14:55:42 CDT CPT-68488 Bone Density - XRAY USE ONLY 10:27:12 CDT 2 CPT-G0439 [facility] Annual Wellness Exam 17:54:53 CDT CPT-33667 Foot, left, comp min 3V - XRAY USE ONLY 12:22:49 CDT CPT-G0009 Administration of Pneumococcal Vaccine 3 12:18:00 CDT CPT-14534 Pneumovax 23 Injection Injectable 25 MCG /0.5ML 12:18:00 CDT CPT-J0897 Prolia 60 mg 14:14:16 [employer] CPT-07657 Abx/Therapy Injection 14:14:15 [employer] CPT-61361 Lipid - LAB USE ONLY 10:01:52 [employer] 2 CPT-75916 Calcium - LAB USE ONLY 10:01:51 [employer] CPT-40414 Venipuncture Draw Fee 10:01:51 [employer] CPT-LR Lesion Removal 16:22:01 [employer] CPT-35098 TSH - LAB USE ONLY 14:26:02 CDT CPT-95299 CMP - LAB USE ONLY 14:26:01 CDT CPT-44887 CBC with Diff - LAB USE ONLY 14:26:01 CDT 2 CPT-72137 Venipuncture Draw Fee 14:26:01 CDT CPT-01925 First Vx - Ix admin for Medicare patients 13:27:08 CDT CPT-96220 Fluzone High-Dose Intramuscular Suspension 11/26 13:27:08 CDT CPT-G0438 Initial Annual Wellness Exam 14:19:57 CD T CPT-G0009 Administration of Pneumococcal Vaccine 9 11:36:25 CDT CPT-27430 Prevnar 13 Intramuscular Suspension 1 1:36:25 CDT CPT-81745 Prevnar 13 Intramuscular Suspension 1 0:40:58 CDT CPT-J0897 Prolia 60 mg 10:37:16 CDT CPT-76973 Abx/Therapy Injection 10:37:16 CDT CPT-J0897 Prolia 60 mg 16:09:34 [employer] CPT-J0897 Prolia 60 mg 11:10:35 [employer] CPT-70633 Abx/Therapy Injection 11:10:35 [employer] CPT-000 Give Appropriate Flu Vaccine 17:01:15 [employer] 2 CPT-14925 Fluzone High Dose (65+) 15:03:08 [employer] 02/15 CPT-72101 Immunization Single Admin 15:03:08 [employer] 2014 CPT-OV Office Visit 15:58:06 CDT CPT-J0897 Prolia 60 mg 08:45:38 CDT CPT-58215 Abx/Therapy Injection 08:45:38 CDT CPT-J3420 Vitamin B12 1000mcg (Cyanocobalamin) 09:26:20 [employer] CPT-78092 Abx/Therapy Injection 09:26:20 [employer] CPT-J3420 Vitamin B12 1000mcg (Cyanocobalamin) 09:44:40 [employer] CPT-96506 Abx/Therapy Injection 09:44:40 [employer] CPT-J3420 Vitamin B12 1000mcg (Cyanocobalamin) 09:15:54 [employer] CPT-73114 Abx/Therapy Injection 09:15:54 [employer] CPT-J3420 Vitamin B12 1000mcg (Cyanocobalamin) 09:46:44 [employer] CPT-84491 Abx/Therapy Injection 09:46:44 [employer] CPT-J3420 Vitamin B12 1000mcg (Cyanocobalamin) 09:47:34 [employer] CPT-50790 Abx/Therapy Injection 09:47:34 [employer] CPT-J3420 Vitamin B12 1000mcg (Cyanocobalamin) 14:35:50 [employer] CPT-J3420 Vitamin B12 1000mcg (Cyanocobalamin) 09:25:05 [employer] CPT-32603 Abx/Therapy Injection 09:25:05 [employer] CPT-G0008 Administration of Influenza Virus Vaccine 13:36:47 CDT CPT-25956 Fluzone High-Dose Intramuscular Suspension 11/15 13:36:47 CDT CPT-J0897 Prolia 60 mg 08:50:41 CDT CPT-08246 Abx/Therapy Injection 08:50:41 CDT CPT-08288 Bone Density 12:06:12 CDT CPT-74523 Bone Density 08:54:40 CDT CPT-OV Office Visit 15:37:02 CDT CPT-57316 Postop F/U Visit 15:47:49 CDT CPT-05851 Postop F/U Visit 15:21:02 CDT CPT-TCM Transitional Care Mgmt-High 07:52:27 CDT 20 20/06/01 CPT-12953 Venipuncture Draw Fee 13:51:18 CDT CPT-84515 Venipuncture Draw Fee 10:14:55 [employer] CPT-01096 Venipuncture Draw Fee 13:39:45 [employer] CPT-OV Office Visit 15:11:22 [employer] CPT-47908 Venipuncture Draw Fee 09:20:49 [employer] CPT-76803 Venipuncture Draw Fee 16:52:15 [employer] CPT-69950 Venipuncture Draw Fee 10:37:24 [employer] CPT-01470 Venipuncture Draw Fee 08:21:21 [employer] CPT-50879 Venipuncture Draw Fee 08:30:20 [employer] CPT-87829 Venipuncture Draw Fee 14:53:21 [employer] CPT-11222 Venipuncture Draw Fee 09:40:56 [employer] CPT-78192 Venipuncture Draw Fee 10:30:47 [employer] CPT-72726 Venipuncture Draw Fee 10:46:17 [employer] CPT-76761 Venipuncture Draw Fee 11:12:45 [employer] CPT-91272 Venipuncture Draw Fee 09:53:33 [employer] CPT-11566 Venipuncture Draw Fee 11:53:51 [employer] CPT-11351 Venipuncture Draw Fee 10:33:50 [employer] CPT-96824 Venipuncture Draw Fee 10:05:01 [employer] CPT-25562 Venipuncture Draw Fee 14:32:52 [employer] CPT-10721 Venipuncture Draw Fee 09:46:13 [employer] CPT-62180 Venipuncture Draw Fee 11:34:27 [employer] CPT-00292 Venipuncture Draw Fee 13:17:16 [employer] CPT-55681 Venipuncture Draw Fee 12:05:39 CDT CPT-81359 Venipuncture Draw Fee 12:49:12 CDT CPT-25113 Venipuncture Draw Fee 12:37:18 CDT CPT-48537 Venipuncture Draw Fee 10:57:11 CDT CPT-41904 Venipuncture Draw Fee 13:47:40 CDT CPT-35097 Venipuncture Draw Fee 10:02:17 CDT CPT-35175 TB Tubersol 17:32:32 CDT CPT-OV Office Visit 16:21:53 CDT CPT-OV Office Visit 15:49:22 CDT CPT-OV Office Visit 17:16:31 CDT CPT-OV Office Visit 10:43:31 CDT
--- OUTSIDE RECORDS SUMMARY | 2019-02-09 11:46 | XMS REPORT | Clinical Summary ---
Author Author Admin, Florecita Munoz Organization [facility] [employer] Address Unknown Phone Unavailable Allergies, Adverse Reactions, [...] Sebaceous cyst, scalp 706.2 Resolved Kylie Yokum [employer] [employer] Sebaceous cyst Cervical lymphadenopathy, anterior, left 785.6 Resolv ed Kylie Yokum [employer] [employer] Enlargement of lymph nodes Need for prophylactic vaccination and inoculation against in fluenza V04.81 Resolved Adam Yates MD Need for prophylactic vaccination and inoculation against influenza Preventive health care V70.0 Resolved Kylie Lundu m [employer] [employer] Routine general medical examination at a health care facility Thyroid nodule, left 241.0 Resolved Selena Yates MD Nontoxic uninodular goiter Screening mammogram V76.12 Resolved Kylie Yokum A PRN Other screening mammogram Mandy 706.2 Resolved Kylie Yokum [employer] [employer] Sebaceous cyst Colon cancer, ascending 153.6 Resolved Kylie Yok um [employer] Malignant neoplasm of ascending colon Foot pain, left 729.5 Resolved Kylie Yokum [employer] Pain in limb Splinter 919.6 Resolved Kylie Yokum [employer] Superficial foreign body (splinter) of other, multiple, and unspecified sites, without major open wound and without mention of infection Rash 782.1 Resolved Kylie Yokum [employer] Rash and other nonspecific skin eruption Cyst 706.2 Resolved Kylie Yokum [employer] Sebaceous cyst Body Mass Index 23.0-23.9 Adult Refinement 2017 Kylie Yokum [employer] [employer] Body Mass Index between 19-24, adult BMI [...] vocal cords Preventive health care, adult V70.0 Active 08/08 Kylie Holt APRN Routine general medical examination at a health care facility ABDOMINAL PAIN, RIGHT LOWER QUADRANT ICD-789.03 Inactive Kina Joshua [employer] ADENOCARCINOMA, COLON, 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 Dick Yates MD ABDOMINAL PAIN, GENERALIZED ICD-789.07 Inactive Hope Benavidez MD PhD FEVER UNSPECIFIED ICD-780.60 Inactive Hope cohn MD PhD UNSPECIFIED VENOUS INSUFFICIENCY ICD-459.81 [place] ctive Adam Yates MD ADENOCARCINOMA, 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 Inac tive Hope Benavidez MD PhD Hyperkalemia ICD-276.7 Inactive Hope Benavidez MD PhD GERD ICD-530.81 Inactive Kylie Yanet [employer] [employer] 2015 Health maintenance exam ICD-V70.0 Bam Yates MD Anemia ICD-285.9 Inactive Kylie Escalonapari [employer] 07/24 Hypomagnesemia ICD-275.2 Inactive Kylie Holt [employer] Weakness ICD-780.79 Inactive Hope Benavidez MD P [...] cyst, scalp ICD-706.2 Inactive Tracy hi Yokum [employer] Cervical lymphadenopathy, anterior, left ICD-785.6 Inactive Kylie Yokum [employer] Need for prophylactic vaccination and inoculation against in fluenza ICD-V04.81 Inactive Adam Yates MD Preventive health care ICD-V70.0 Inactive Ka thi Yokum [employer] Thyroid nodule, left ICD-241.0 Inactive Selena Yates MD Screening mammogram ICD-V76.12 Inactive Kylie Yokum [employer] Mandy ICD-706.2 Inactive Kylie Yokum [employer] [employer]MER 07/20 Colon cancer, ascending ICD-153.6 Inactive K athi Yokum [employer] Foot pain, left ICD-729.5 Inactive Kylie Yokum [employer] Splinter ICD-919.6 Inactive Kylie Yokum [employer] 2017 Rash ICD-782.1 Inactive Kylie Yokum [employer] 07/25 Cyst ICD-706.2 Inactive Kylie Yokum [employer]MER 08/11 Unspecified fall, initial encounter ICD-E888.9 Inactive Kylie Yokum [employer] Eye pain, left ICD-379.91 Inactive Kylie Holt APRN Pharyngitis, acute ICD-074.0 Inactive Kavin Yates MD Hypomagnesemia ICD-275.2 Inactive Adam Franklin MD Hypokalemia ICD-276.8 Inactive Adam enamorado MD Enlarged thyroid ICD-240.9 Inactive Adam Yates MD Underweight Inactive LETY Nation 05/17 Follicular adenoma, thyroid ICD-226 Inactive Adam Yates MD Medication List Medication Instructions Start Date Stop Date Generic Name NDC Status Provider Patient Instruction LEVOTHYROXINE SODIUM 50 MCG ORAL TABLET 1 daily LEVOTHYROXINE SODIUM 21857385526 Active Kylie Holt APRN Active VOLTAREN 1 % TRANSDERMAL GEL apply 2 grams q 6-8 hour to left arm as needed for pain DICLOFENAC SODIUM 01673001305 Active Kylie Marrero Active IMODIUM A-D 2 MG ORAL TABLET 1 tablet twice a day LOPERAMIDE HCL 21340456457 Active Kylie Holt APRN Active COQ10 100 MG ORAL CAPSULE 1 daily COENZYME Q10 661278 10064 Active LETY Nation Active VITAMIN D3 2000 UNIT ORAL CAPSULE Melaleuca-One daily CHOLECALCIFEROL 83594339926 Active Kylie Holt APRN Active PROBIOTIC DAILY ORAL CAPSULE Take one daily PROBIO TIC PRODUCT 42849317736 Active Kylie Holt APRN Active IRON 325 (65 Fe) MG ORAL TABLET 1 every other day FERROUS SULFATE 32128500225 No Longer Active Kylie Holt APRN Active FLORANEX ORAL PACKET 1 pack three times daily, for bowel health LACTOBACILLUS 37908409571 No Longer Active Kylie Holt APRN Active LOMOTIL 2.5-0.025 MG ORAL TABLET 1 tab by mouth prn 20 23/10/23 DIPHENOXYLATE-ATROPINE 43529417374 No Longer Active Kylie Polakum [employer] [employer]MER Active MAGNESIUM GLUCONATE 250 MG ORAL TABLET 1 tab tid 20 23/10/23 MAGNESIUM GLUCONATE 33815604838 No Longer Active Kylie Yokum [employer]MER Active CYANOCOBALAMIN 1000 MCG/ML INJECTION SOLUTION 1 injection ev ruben 2 weeks CYANOCOBALAMIN 83766663322 No Longer Active Kylie Yogabbi um [employer] [employer]MER Active ATENOLOL 25 MG ORAL TABLET 1/2 pill by mouth daily, fo r headaches, blood pressure ATENOLOL 09087484151 Active Kylie Yokum [employer] [employer] Active PROPRANOLOL HCL 80 MG ORAL TABLET 1 tab tue. and thur. PROPRANOLOL HCL 46742404638 No Longer Active Hope Benavidez MD PhD A ctive VITAMIN D3 4000 IU 1 tab 3 times daily VITAMIN D3 4000 IU No Longer Active Hope Benavidez MD PhD Active BACTRIM DS 800-160 MG ORAL TABLET 1 pill by mouth twice claudio y, for UTI SULFAMETHOXAZOLE-TRIMETHOPRIM 53798925288 No Longer Active Hope Benavidez MD PhD Active PROLIA 60 MG/ML SUBCUTANEOUS SOLUTION 1 shot every 6 months for osteoprosis DENOSUMAB 57924318669 Active Hope Benavidez MD PhD Active CALCIUM + D + K 750-500-40 MG-UNT-MCG ORAL TABLET 1 tab by m [facility] twice daily CALCIUM-VITAMIN D-VITAMIN K 37031190766 Active Hope valdez MD PhD Active DAILY VALUE MULTIVITAMIN ORAL TABLET 1 tab by mouth twice daily 201 05/16/14 MULTIPLE VITAMIN 13242965755 Active Hope Benavidez MD PhD Acti ve FISH OIL 306 MG CAPS 1 tab by mouth three times daily OMEGA-3 FATTY ACIDS 48015107002 Active Hope Benavidez MD PhD Active LUTEIN 10 MG ORAL TABLET 1 tab daily LUTEIN 56723477 408 Active Hope Benavidez MD PhD Active TRIAMTERENE-HCTZ 37.5-25 MG ORAL TABLET 1 tab by mouth daily 10/22 TRIAMTERENE-HCTZ 89687783052 Active Kylie Holt AMY Active CYCLOBENZAPRINE HCL 10 MG ORAL TABLET 1 tablet by [facility] three times daily as needed for headaches CYCLOBENZAPRINE HCL 89571480745 No Longer Active Adam Yates MD Active OMEPRAZOLE 20 MG ORAL CAPSULE DELAYED RELEASE 1 tablet by [facility] daily for GERD OMEPRAZOLE 86212599353 No Longer Active Adam Yates MD Active ZOFRAN 8 MG ORAL TABLET 1 tab by mouth every 12 hours prn 4 ONDANSETRON HCL 65328018023 No Longer Active Adam Yates MD Active PHENADOZ 25 MG RECTAL SUPPOSITORY 1 every 4 hrs. PRN 2 PROMETHAZINE HCL 01672699577 No Longer Active Adam Yates MD A ctive POTASSIUM CHLORIDE 20 MEQ ORAL PACKET by mouth twice a day prn 2 POTASSIUM CHLORIDE 09124486331 No Longer Active Adam Carpenter MD Active PROMETHAZINE HCL 25 MG ORAL TABLET 1 Q. 4 hr. PRN PROMETHAZINE HCL 31624873559 No Longer Active Adam Yates MD Active INNOPRAN XL 120 MG ORAL CAPSULE EXTENDED RELEASE 24 HO UR Take one by mouth daily PROPRANOLOL HCL SR BEADS 24660277436 No Longer Active Adam Yates MD Active FLAGYL 500 MG ORAL TABLET 1 pill by mouth three times daily, for diarrhea METRONIDAZOLE 83713509292 No Longer Active Hope landers MD PhD Active DYAZIDE 37.5-25 MG ORAL CAPSULE 1 qd TRIA MTERENE-HCTZ 98679428839 No Longer Active Hope Benavidez MD PhD Active PROZAC 20 MG ORAL CAPSULE 1 q d FLUOXETINE HCL 14687884503 No Longer Active Hope Benavidez MD PhD Active SIMVASTATIN 40 MG ORAL TABLET 1 qd SIMVAS TATIN 78205337576 No Longer Active Adam Yates MD Active MELOXICAM 15 MG ORAL TABLET 1 qd MELOXICAM 40575729994 No Longer Active Adam Yates MD Active EXCEDRIN EXTRA STRENGTH 250-250-65 MG ORAL TABLET 1-2 q6h HI N headache [id number] 29359615087 Active Hope Benavidez MD PhD Active FLAGYL 500 MG ORAL TABLET 1 qid METRONIDAZOL E 67700583602 No Longer Active Adam Yates MD Active LEVAQUIN 750 MG ORAL TABLET 1 qd LEVOFLOXAC IN 10222357260 No Longer Active Adam Yates MD Active ADULT ASPIRIN LOW STRENGTH 81 MG ORAL TABLET DISINTEGRATING 1 qd ASPIRIN 44968550865 Active Hope Benavidez MD PhD Active LEVAQUIN 750 MG ORAL TABLET 1 qd LEVAQUIN 750 MG ORAL TABLET 666419 LEVOFLOXACIN Inactive FLAGYL 500 MG ORAL TABLET 1 qid FLAGYL 500 MG ORAL TABLET 798934 METRONIDAZOLE Inactive MELOXICAM 15 MG ORAL TABLET 1 qd MELOXICAM 15 MG ORAL TABLET 983740 MELOXICAM Inactive SIMVASTATIN 40 MG ORAL TABLET 1 qd SIMVASTATIN 40 MG ORAL TABLET 664145 SIMVASTATIN Inactive PROZAC 20 MG ORAL CAPSULE 1 q d PROZAC 20 MG ORAL CAPSULE 939607 FLUOXETINE HCL Inactive DYAZIDE 37.5-25 MG ORAL CAPSULE 1 qd 5 DYAZIDE 37.5-25 MG ORAL CAPSULE 691497 TRIAMTERENE-HCTZ Inactive INNOPRAN XL 120 MG ORAL CAPSULE EXTENDED RELEASE 24 HO UR Take one by mouth daily INNOPRAN XL 120 MG ORAL CAPSULE EXTENDED RELEASE 24 HOUR PROPRANOLOL HCL SR BEADS Inactive PROMETHAZINE HCL 25 MG ORAL TABLET 1 Q. 4 hr. PRN 2013 PROMETHAZINE HCL 25 MG ORAL TABLET 532628 PROMETHAZINE HCL Inactive POTASSIUM CHLORIDE 20 MEQ ORAL PACKET by mouth twice a day prn 2 POTASSIUM CHLORIDE 20 MEQ ORAL PACKET 6994963 POTASSIUM CHLORIDE Inactive PHENADOZ 25 MG RECTAL SUPPOSITORY 1 every 4 hrs. PRN 2 PHENADOZ 25 MG RECTAL SUPPOSITORY 742746 PROMETHAZINE HCL Inactive ZOFRAN 8 MG ORAL TABLET 1 tab by mouth every 12 hours prn 4 ZOFRAN 8 MG ORAL TABLET 638322 ONDANSETRON HCL Inactive OMEPRAZOLE 20 MG ORAL CAPSULE DELAYED RELEASE 1 tablet by mo [facility] daily for GERD OMEPRAZOLE 20 MG ORAL CAPSULE DELAYED RELEASE 19 8051 OMEPRAZOLE Inactive CYCLOBENZAPRINE HCL 10 MG ORAL TABLET 1 tablet by mout three times daily as needed for headaches CYCLOBENZAPRINE HCL 10 MG ORAL TABLET 720646 CYCLOBENZAPRINE HCL Inactive VITAMIN D3 4000 IU 1 tab 3 times daily VITAMIN D3 4000 IU Inactive PROPRANOLOL HCL 80 MG ORAL TABLET 1 tab tue. and thur. PROPRANOLOL HCL 80 MG ORAL TABLET 414579 PROPRANOLOL HCL Inacti ve CYANOCOBALAMIN 1000 MCG/ML INJECTION SOLUTION 1 injection ev ruben 2 weeks CYANOCOBALAMIN 1000 MCG/ML INJECTION SOLUTION 30 9594 CYANOCOBALAMIN Inactive MAGNESIUM GLUCONATE 250 MG ORAL TABLET 1 tab tid 23/10/23 MAGNESIUM GLUCONATE 250 MG ORAL TABLET 880502 MAGNESIUM GLUCONATE Inactive LOMOTIL 2.5-0.025 MG ORAL TABLET 1 tab by mouth prn 23/10/23 LOMOTIL 2.5-0.025 MG ORAL TABLET 8584989 DIPHENOXYLATE-ATROPINE Inac tive FLORANEX ORAL PACKET 1 pack three times daily, for bowel health FLORANEX ORAL PACKET 87300052418 LACTOBACILLUS Inactive IRON 325 (65 Fe) MG ORAL TABLET 1 every other day 2015 IRON 325 (65 Fe) MG ORAL TABLET 467600 FERROUS SULFATE Inactive FLAGYL 500 MG ORAL TABLET 1 pill by mouth three times daily, for diarrhea FLAGYL 500 MG ORAL TABLET 272763 METRONIDAZOLE I nactive BACTRIM DS 800-160 MG ORAL TABLET 1 pill by mouth twice claudio y, for UTI BACTRIM DS 800-160 MG ORAL TABLET 962975 SULFAMETHOXAZOLE-TRIMETHOPRIM Inactive Advance Directives Directive Description Start [...] Lab Report: Calcium - Chemistry calcium, serum 9.1 mg/dL 8.5-10.1 calcium, serum 8.5 mg/dL 8.5-10.1 Lab Report: [...] ... - Chemistry sodium, serum 141 mmol/L 028-768 5509/01/10 potassium, serum 3.7 mmol/L 3.5-5.2 chloride, serum 101 mmol/L 98-107 carbon dioxide, venous blood 31.0 mmol/L 21.0-32 .0 blood glucose 96 mg/dL 65-95 calcium, serum 9.5 mg/dL 8.5-10.1 urea nitrogen, blood 21 mg/dL 7-18 creatinine, serum 1.40 mg/dL 0.60-1.30 Estimated Glomerular Filtration Rate (calc) 39 (?) mL/min/1.73m2 = OR > 60 mL/min cholesterol, serum 211 mg/dL 820-633 9152/01/10 triglyceride, serum, fasting 77 mg/dL 30-200 HDL [...] 0.82 ng/dL 0.59-1.17 sodium, serum 142 mmol/L 226-068 3390/04/16 carbon dioxide, venous blood 30.0 mmol/L 21.0-32 [...] - Chelle radha sodium, serum 142 mmol/L 005-382 7586/11/02 potassium, serum 3.4 mmol/L 3.5-5.2 chloride, serum [...] 0.59-1.17 Encounters Code Encounter Date Provider Facility CPT-25210 [id number] Vst-Est Level III 09:15:19 CDT Fiorella Holt [facility] CPT-62895 Level 4 Est. Patient 15:35:24 JAWBONE BREAKER Adam Yates MD [facility] CPT-81172 Level 3 New Patient 12:08:54 JAWBONE BREAKER Adam Yates MD [facility] CPT-55247 [id number]-Pid Vst-Est Level IV 19:48:30 JAWBONE BREAKER Tracy Holt [facility] CPT-19519 [id number] Vst-Est Level III 14:29:19 CDT Fiorella Holt [facility] CPT-80886 Level 2 Est. Patient 14:58:26 CDT Kylie boyd [facility] CPT-35312 Level 3 Est. Patient 08:15:24 JAWBONE BREAKER Kylie boyd [facility] CPT-50292 Level 2 Est. Patient 14:27:16 JAWBONE BREAKER Kylie boyd [facility] CPT-45155 Level 3 Est. Patient 17:54:48 CDT Kylie boyd [facility] CPT-05923 Level 3 Est. Patient 16:26:30 CDT Kina blackmon [facility] CPT-33495 Level 3 New Patient 16:22:01 JAWBONE BREAKER Adam Yates MD [facility] CPT-81963 Level 4 Est. Patient 17:00:48 CDT Kylie boyd [facility] CPT-01448 Level 3 Est. Patient 13:15:54 CDT Kylie boyd [facility] CPT-18115 Level 3 Est. Patient 09:10:11 CDT Kylie boyd [facility] CPT-53699 Level 4 Est. Patient 12:08:30 JAWBONE BREAKER Hope cohn MD [facility] CPT-25313 Level 4 Est. Patient 19:08:42 JAWBONE BREAKER Hope cohn MD [facility] CPT-33554 Level 4 Est. Patient 20:04:51 CDT Hope cohn MD PhD [facility] CPT-39196 Level 3 New Patient 01:46:11 JAWBONE BREAKER Hope landers MD PhD [facility] Procedures Code Procedure Name Date Entry Date Standard Desc ription CPT-09159 Venipuncture Draw Fee 13:34:11 CDT CPT-G0439 [facility] Annual Wellness Exam 09:15:19 CDT CPT-99019 Postop F/U Visit 15:45:41 CDT CPT-19867 Sono Soft Tissue Head and Neck - XRAY US E ONLY 11:56:06 JAWBONE BREAKER CPT-54245 Abx/Therapy Injection 09:40:08 JAWBONE BREAKER CPT-J0897 Prolia 60 mg 09:40:08 JAWBONE BREAKER CPT-63869 First Vx - Ix admin for Medicare patients 02/08 10:02:45 CDT CPT-03993 Fluzone Quadrivalent Intramuscular Suspe nsion 0.5 ML 10:02:45 CDT CPT-97235 Magnesium - LAB USE ONLY 09:41:00 CDT 12/09 CPT-16826 Renal Panel - LAB USE ONLY 09:41:00 CDT 201 09/17/01 CPT-37396 Venipuncture Draw Fee 09:41:00 CDT CPT-87549 Calcium - LAB USE ONLY 17:25:11 CDT CPT-J0897 Prolia 60 mg 15:10:59 CDT CPT-90068 Abx/Therapy Injection 15:10:59 CDT CPT-G0439 Subsequent Annual Wellness Exam 14:29:19 CDT CPT-23607 Venipuncture Draw Fee 10:59:04 CDT CPT-98863 CMP - LAB USE ONLY 10:59:04 CDT CPT-64542 CBC with Diff - LAB USE ONLY 10:59:03 CDT 2 CPT-J0897 Prolia 60 mg 15:46:54 JAWBONE BREAKER CPT-02660 Abx/Therapy Injection 15:46:54 JAWBONE BREAKER CPT-99728 Microalbumin - LAB USE ONLY 09:41:32 JAWBONE BREAKER 20 23/01/15 CPT-89703 Free T4 - LAB USE ONLY 09:41:32 JAWBONE BREAKER CPT-64896 TSH - LAB USE ONLY 09:41:32 JAWBONE BREAKER CPT-86994 BMP - LAB USE ONLY 09:41:32 JAWBONE BREAKER CPT-44528 Venipuncture Draw Fee 09:41:32 JAWBONE BREAKER CPT-92955 First Vx - Ix admin for Medicare patients 11:19:30 CDT CPT-14211 Fluzone High-Dose Intramuscular Suspension 12/07 11:19:30 CDT CPT-J0897 Prolia 60 mg 14:55:42 CDT CPT-27888 Abx/Therapy Injection 14:55:42 CDT CPT-53235 Bone Density - XRAY USE ONLY 10:27:12 CDT 2 CPT-G0439 Subsequent Annual Wellness Exam 17:54:53 CDT CPT-71830 Foot, left, comp min 3V - XRAY USE ONLY 12:22:49 CDT CPT-G0009 Administration of Pneumococcal Vaccine 3 12:18:00 CDT CPT-90702 Pneumovax 23 Injection Injectable 25 MCG /0.5ML 12:18:00 CDT CPT-J0897 Prolia 60 mg 14:14:16 JAWBONE BREAKER CPT-73561 Abx/Therapy Injection 14:14:15 JAWBONE BREAKER CPT-10700 Lipid - LAB USE ONLY 10:01:52 JAWBONE BREAKER 2 CPT-70569 Calcium - LAB USE ONLY 10:01:51 JAWBONE BREAKER CPT-34254 Venipuncture Draw Fee 10:01:51 JAWBONE BREAKER CPT-LR Lesion Removal 16:22:01 JAWBONE BREAKER CPT-65180 TSH - LAB USE ONLY 14:26:02 CDT CPT-04316 CMP - LAB USE ONLY 14:26:01 CDT CPT-85965 CBC with Diff - LAB USE ONLY 14:26:01 CDT 2 CPT-89921 Venipuncture Draw Fee 14:26:01 CDT CPT-33488 First Vx - Ix admin for Medicare patients 13:27:08 CDT CPT-85338 Fluzone High-Dose Intramuscular Suspension 11/26 13:27:08 CDT CPT-G0438 Initial Annual Wellness Exam 14:19:57 CD T CPT-G0009 Administration of Pneumococcal Vaccine 9 11:36:25 CDT CPT-72963 Prevnar 13 Intramuscular Suspension 1 1:36:25 CDT CPT-45307 Prevnar 13 Intramuscular Suspension 1 0:40:58 CDT CPT-J0897 Prolia 60 mg 10:37:16 CDT CPT-31699 Abx/Therapy Injection 10:37:16 CDT CPT-J0897 Prolia 60 mg 16:09:34 JAWBONE BREAKER CPT-J0897 Prolia 60 mg 11:10:35 JAWBONE BREAKER CPT-59393 Abx/Therapy Injection 11:10:35 JAWBONE BREAKER CPT-000 Give Appropriate Flu Vaccine 17:01:15 JAWBONE BREAKER 2 CPT-60550 Fluzone High Dose (65+) 15:03:08 JAWBONE BREAKER 02/15 CPT-92758 Immunization Single Admin 15:03:08 JAWBONE BREAKER 2014 CPT-OV Office Visit 15:58:06 CDT CPT-J0897 Prolia 60 mg 08:45:38 CDT CPT-52016 Abx/Therapy Injection 08:45:38 CDT CPT-J3420 Vitamin B12 1000mcg (Cyanocobalamin) 09:26:20 JAWBONE BREAKER CPT-69791 Abx/Therapy Injection 09:26:20 JAWBONE BREAKER CPT-J3420 Vitamin B12 1000mcg (Cyanocobalamin) 09:44:40 JAWBONE BREAKER CPT-44684 Abx/Therapy Injection 09:44:40 JAWBONE BREAKER CPT-J3420 Vitamin B12 1000mcg (Cyanocobalamin) 09:15:54 JAWBONE BREAKER CPT-08060 Abx/Therapy Injection 09:15:54 JAWBONE BREAKER CPT-J3420 Vitamin B12 1000mcg (Cyanocobalamin) 09:46:44 JAWBONE BREAKER CPT-65333 Abx/Therapy Injection 09:46:44 JAWBONE BREAKER CPT-J3420 Vitamin B12 1000mcg (Cyanocobalamin) 09:47:34 JAWBONE BREAKER CPT-74374 Abx/Therapy Injection 09:47:34 JAWBONE BREAKER CPT-J3420 Vitamin B12 1000mcg (Cyanocobalamin) 14:35:50 JAWBONE BREAKER CPT-J3420 Vitamin B12 1000mcg (Cyanocobalamin) 09:25:05 JAWBONE BREAKER CPT-50333 Abx/Therapy Injection 09:25:05 JAWBONE BREAKER CPT-G0008 Administration of Influenza Virus Vaccine 13:36:47 CDT CPT-06165 Fluzone High-Dose Intramuscular Suspension 11/15 13:36:47 CDT CPT-J0897 Prolia 60 mg 08:50:41 CDT CPT-21877 Abx/Therapy Injection 08:50:41 CDT CPT-38420 Bone Density 12:06:12 CDT CPT-02476 Bone Density 08:54:40 CDT CPT-OV Office Visit 15:37:02 CDT CPT-45721 Postop F/U Visit 15:47:49 CDT CPT-24652 Postop F/U Visit 15:21:02 CDT [facility]PT-[facility] Transitional Care Mgmt-High 07:52:27 CDT 20 20/06/01 CPT-23194 Venipuncture Draw Fee 13:51:18 CDT CPT-78298 Venipuncture Draw Fee 10:14:55 JAWBONE BREAKER CPT-54889 Venipuncture Draw Fee 13:39:45 JAWBONE BREAKER CPT-OV Office Visit 15:11:22 JAWBONE BREAKER CPT-46573 Venipuncture Draw Fee 09:20:49 JAWBONE BREAKER CPT-23745 Venipuncture Draw Fee 16:52:15 JAWBONE BREAKER CPT-52118 Venipuncture Draw Fee 10:37:24 JAWBONE BREAKER CPT-29995 Venipuncture Draw Fee 08:21:21 JAWBONE BREAKER CPT-37007 Venipuncture Draw Fee 08:30:20 JAWBONE BREAKER CPT-21531 Venipuncture Draw Fee 14:53:21 JAWBONE BREAKER CPT-38672 Venipuncture Draw Fee 09:40:56 JAWBONE BREAKER CPT-73338 Venipuncture Draw Fee 10:30:47 JAWBONE BREAKER CPT-38874 Venipuncture Draw Fee 10:46:17 JAWBONE BREAKER CPT-02488 Venipuncture Draw Fee 11:12:45 JAWBONE BREAKER CPT-72711 Venipuncture Draw Fee 09:53:33 JAWBONE BREAKER CPT-73013 Venipuncture Draw Fee 11:53:51 JAWBONE BREAKER CPT-81783 Venipuncture Draw Fee 10:33:50 JAWBONE BREAKER CPT-84153 Venipuncture Draw Fee 10:05:01 JAWBONE BREAKER CPT-52366 Venipuncture Draw Fee 14:32:52 JAWBONE BREAKER CPT-34348 Venipuncture Draw Fee 09:46:13 JAWBONE BREAKER CPT-74123 Venipuncture Draw Fee 11:34:27 JAWBONE BREAKER CPT-21113 Venipuncture Draw Fee 13:17:16 JAWBONE BREAKER CPT-68749 Venipuncture Draw Fee 12:05:39 CDT CPT-06344 Venipuncture Draw Fee 12:49:12 CDT CPT-46071 Venipuncture Draw Fee 12:37:18 CDT CPT-77778 Venipuncture Draw Fee 10:57:11 CDT CPT-26761 Venipuncture Draw Fee 13:47:40 CDT CPT-50569 Venipuncture Draw Fee 10:02:17 CDT CPT-62639 TB Tubersol 17:32:32 CDT CPT-OV Office Visit 16:21:53 CDT CPT-OV Office Visit 15:49:22 CDT CPT-OV Office Visit 17:16:31 CDT CPT-OV Office Visit 10:43:31 CDT
--- OUTSIDE RECORDS SUMMARY | 2019-02-09 11:46 | XMS REPORT | Clinical Summary ---
Author Author Renaldo, Florecita Munoz Organization [facility] Address Unknown Phone Unavailable Allergies, Adverse Reactions, [...] PhD Hyperpotassemia GERD 530.81 Resolved Kylie Yokum PIG HANDLER Esophageal reflux Health maintenance exam V70.0 Resolved Adolfo Yates MD Routine general medical examination at a health care facility Anemia 285.9 Resolved Kylie Yanet PIG HANDLER Anemia, unspecified Personal history of malignant neoplasm of large intestine V10.05 Active Adam Yates MD Personal history of malignant neoplasm of large intestine Hypomagnesemia 275.2 Resolved Kylie Yanet PIG HANDLER Disorders of magnesium metabolism Weakness 780.79 Resolved [...] Sebaceous cyst, scalp 706.2 Resolved Kylie Yokum PIG HANDLER Sebaceous cyst Cervical lymphadenopathy, anterior, left 785.6 Resolv ed Kylie Yokum PIG HANDLER Enlargement of lymph nodes Need for prophylactic vaccination and inoculation against in fluenza V04.81 Resolved Adam Yates MD Need for prophylactic vaccination and inoculation against influenza Preventive health care V70.0 Resolved Kylie Lundu m PIG HANDLER Routine general medical examination at a health care facility Thyroid nodule, left 241.0 Resolved Selena Yates MD Nontoxic uninodular goiter Screening mammogram V76.12 Resolved Kylie Yokum A PRN Other screening mammogram Mandy 706.2 Resolved Kylie Yokum PIG HANDLER Sebaceous cyst Colon cancer, ascending 153.6 Resolved Kylie Yok um PIG HANDLER Malignant neoplasm of ascending colon Foot pain, left 729.5 Resolved Kylie Yokum PIG HANDLER Pain in limb Splinter 919.6 Resolved Kylie Yokum PIG HANDLER Superficial foreign body (splinter) of other, multiple, and unspecified sites, without major open wound and without mention of infection Rash 782.1 Resolved Kylie Yokum PIG HANDLER Rash and other nonspecific skin eruption Cyst 706.2 Resolved Kylie Yokum PIG HANDLER Sebaceous cyst Body Mass Index 23.0-23.9 Adult Refinement 2017 Kylie Yokum PIG HANDLER Body Mass Index between 19-24, adult BMI [...] RIGHT LOWER QUADRANT ICD-789.03 Inactive Kina Joshua PIG HANDLER ABDOMINAL PAIN, GENERALIZED ICD-789.07 Inactive Hope Benavidez MD PhD FEVER UNSPECIFIED ICD-780.60 Inactive Hope cohn MD PhD UNSPECIFIED VENOUS INSUFFICIENCY ICD-459.81 Elda ctive Adam Yates MD ADENOCARCINOMA, 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 Inac tive Hope Benavidez MD PhD Hyperkalemia ICD-276.7 Inactive Hope Benavidez MD PhD ADENOCARCINOMA, COLON, 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 Dick Yates MD Health maintenance exam ICD-V70.0 Bam Yates MD Anemia ICD-285.9 Inactive Kylie Holt PIG HANDLER 07/24 Hypomagnesemia ICD-275.2 Inactive Kylie Holt PIG HANDLER Weakness ICD-780.79 Inactive Hope Benavidez MD P [...] colon ICD-153.6 Inac tive Adam Yates MD GERD ICD-530.81 Inactive Kylie Yokum PIG HANDLER 2015 Cervical lymphadenopathy, anterior, left ICD-785.6 Inactive Kylie Yokum PIG HANDLER Need for prophylactic vaccination and inoculation against in fluenza ICD-V04.81 Bam Yates MD Preventive health care ICD-V70.0 Inactive Ka thi Yokum PIG HANDLER Thyroid nodule, left ICD-241.0 Inactive Selena Yates MD Mandy ICD-706.2 Inactive Kylie Yokum PIG HANDLER 07/20 Colon cancer, ascending ICD-153.6 Inactive K athi Yokum PIG HANDLER Sebaceous cyst, scalp ICD-706.2 Inactive Tracy hi Yokum PIG HANDLER Screening mammogram ICD-V76.12 Inactive Kylie Yokum PIG HANDLER Splinter ICD-919.6 Inactive Kylie Yokum PIG HANDLER 2017 Rash ICD-782.1 Inactive Kylie Yokum PIG HANDLER 07/25 Cyst ICD-706.2 Inactive Kylie Yokum PIG HANDLER 08/11 Unspecified fall, initial encounter ICD-E888.9 Inactive Kylie Yokum PIG HANDLER Eye pain, left ICD-379.91 Inactive Kylie Yokum PIG HANDLER Pharyngitis, acute ICD-074.0 Inactive Kavin Yates MD Hypomagnesemia ICD-275.2 Inactive Adam Franklin MD Hypokalemia ICD-276.8 Inactive Adam enamorado MD Enlarged thyroid ICD-240.9 Inactive Adam Yates MD Underweight Inactive LETY Nation 05/17 Follicular adenoma, thyroid ICD-226 Inactive Adam Yates MD Preventive health care, adult ICD-V70.0 Inacti ve Kylie Yanet REYES Foot pain, left ICD-729.5 Inactive Kylie Yanet REYES Medication List Medication Instructions Start Date Stop Date Generic Name NDC Status Provider Patient Instruction LEVOTHYROXINE SODIUM 50 MCG ORAL TABLET 1 daily LEVOTHYROXINE SODIUM 84094477008 Active Kylieshubham Holt APRN Active VOLTAREN 1 % TRANSDERMAL GEL apply 2 grams q 6-8 hour to left arm as needed for pain DICLOFENAC SODIUM 70579257568 Active Kylie Marrero Active IMODIUM A-D 2 MG ORAL TABLET 1 tablet twice a day LOPERAMIDE HCL 91777086284 Active Kylieshubham Holt APRN Active COQ10 100 MG ORAL CAPSULE 1 daily COENZYME Q10 938158 55013 Active Fay Alberts [facility] Active VITAMIN D3 2000 UNIT ORAL CAPSULE Melaleuca-One daily CHOLECALCIFEROL 83461330169 Active Kylieshubham Holt APRN Active PROBIOTIC DAILY ORAL CAPSULE Take one daily PROBIO TIC PRODUCT 72344165015 Active Kylie Polapari REYES Active IRON 325 (65 Fe) MG ORAL TABLET 1 every other day FERROUS SULFATE 38683201754 No Longer Active Kylie Holt APRN Active FLORANEX ORAL PACKET 1 pack three times daily, for bowel health LACTOBACILLUS 04192927787 No Longer Active Kylie Lundum PIG HANDLER Active LOMOTIL 2.5-0.025 MG ORAL TABLET 1 tab by mouth prn 20 23/10/23 DIPHENOXYLATE-ATROPINE 90972550129 No Longer Active Kylie Yokum PIG HANDLER Active MAGNESIUM GLUCONATE 250 MG ORAL TABLET 1 tab tid 23/10/23 MAGNESIUM GLUCONATE 97586910354 No Longer Active Kylie Yokum PIG HANDLER Active CYANOCOBALAMIN 1000 MCG/ML INJECTION SOLUTION 1 injection ev ruben 2 weeks CYANOCOBALAMIN 34326621614 No Longer Active Kylie Lund um PIG HANDLER Active ATENOLOL 25 MG ORAL TABLET 1/2 pill by mouth daily, fo r headaches, blood pressure ATENOLOL 40257182191 Active Kylie Yokum PIG HANDLER Active PROPRANOLOL HCL 80 MG ORAL TABLET 1 tab tue. and thur. PROPRANOLOL HCL 97658804804 No Longer Active Hope Benavidez MD PhD A ctive VITAMIN D3 4000 IU 1 tab 3 times daily VITAMIN D3 4000 IU No Longer Active Hope Benavidez MD PhD Active BACTRIM DS 800-160 MG ORAL TABLET 1 pill by mouth twice claudio y, for UTI SULFAMETHOXAZOLE-TRIMETHOPRIM 21480555980 No Longer Active Hope Benavidez MD PhD Active PROLIA 60 MG/ML SUBCUTANEOUS SOLUTION 1 shot every 6 months for osteoprosis DENOSUMAB 86084509402 Active Hope Benavidez MD PhD Active CALCIUM + D + K 750-500-40 MG-UNT-MCG ORAL TABLET 1 tab by m outh twice daily CALCIUM-VITAMIN D-VITAMIN K 16022308384 Active Hope valdez MD PhD Active DAILY VALUE MULTIVITAMIN ORAL TABLET 1 tab by mouth twice daily 201 05/16/14 MULTIPLE VITAMIN 18196798673 Active Hope Benavidez MD PhD Acti ve FISH OIL 306 MG CAPS 1 tab by mouth three times daily OMEGA-3 FATTY ACIDS 52181295653 Active Hope Benavidez MD PhD Active LUTEIN 10 MG ORAL TABLET 1 tab daily LUTEIN 07045552 408 Active Hope Benavidez MD PhD Active TRIAMTERENE-HCTZ 37.5-25 MG ORAL TABLET 1 tab by mouth daily 10/22 TRIAMTERENE-HCTZ 65698477914 Active Kylie Holt PIG HANDLER Active CYCLOBENZAPRINE HCL 10 MG ORAL TABLET 1 tablet by mout h three times daily as needed for headaches CYCLOBENZAPRINE HCL 48661518923 No Longer Active Adam Yates MD Active OMEPRAZOLE 20 MG ORAL CAPSULE DELAYED RELEASE 1 tablet by mo [facility] daily for GERD OMEPRAZOLE 63324317139 No Longer Active Adam Yates MD Active ZOFRAN 8 MG ORAL TABLET 1 tab by mouth every 12 hours prn 4 ONDANSETRON HCL 71640879046 No Longer Active Adam Yates MD Active PHENADOZ 25 MG RECTAL SUPPOSITORY 1 every 4 hrs. PRN 2 PROMETHAZINE HCL 40440016414 No Longer Active Adam Yates MD A ctive POTASSIUM CHLORIDE 20 MEQ ORAL PACKET by mouth twice a day prn 2 POTASSIUM CHLORIDE 55876598645 No Longer Active Adam Carpenter MD Active PROMETHAZINE HCL 25 MG ORAL TABLET 1 Q. 4 hr. PRN PROMETHAZINE HCL 66417614449 No Longer Active Adam Yates MD Active INNOPRAN XL 120 MG ORAL CAPSULE EXTENDED RELEASE 24 HO UR Take one by mouth daily PROPRANOLOL HCL SR BEADS 75428545973 No Longer Active Adam Yates MD Active FLAGYL 500 MG ORAL TABLET 1 pill by mouth three times daily, for diarrhea METRONIDAZOLE 40024754845 No Longer Active Hope landers MD PhD Active DYAZIDE 37.5-25 MG ORAL CAPSULE 1 qd TRIA MTERENE-HCTZ 73204019426 No Longer Active Hope Benavidez MD PhD Active PROZAC 20 MG ORAL CAPSULE 1 q d FLUOXETINE HCL 29332849611 No Longer Active Hope Benavidez MD PhD Active SIMVASTATIN 40 MG ORAL TABLET 1 qd SIMVAS TATIN 12212712288 No Longer Active Adam Yates MD Active MELOXICAM 15 MG ORAL TABLET 1 qd MELOXICAM 62834555500 No Longer Active Adam Yates MD Active EXCEDRIN EXTRA STRENGTH 250-250-65 MG ORAL TABLET 1-[address] N headache [id number] 80833920523 Active Hope Benavidez MD PhD Active FLAGYL 500 MG ORAL TABLET 1 qid METRONIDAZOL E 82789324067 No Longer Active Adam Yates MD Active LEVAQUIN 750 MG ORAL TABLET 1 qd LEVOFLOXAC IN 61631326185 No Longer Active Adam Yates MD Active ADULT ASPIRIN LOW STRENGTH 81 MG ORAL TABLET DISINTEGRATING 1 qd ASPIRIN 63169577280 Active Hope Benavidez MD PhD Active LEVAQUIN 750 MG ORAL TABLET 1 qd LEVAQUIN 750 MG ORAL TABLET 761311 LEVOFLOXACIN Inactive FLAGYL 500 MG ORAL TABLET 1 qid FLAGYL 500 MG ORAL TABLET 040535 METRONIDAZOLE Inactive MELOXICAM 15 MG ORAL TABLET 1 qd MELOXICAM 15 MG ORAL TABLET 341941 MELOXICAM Inactive SIMVASTATIN 40 MG ORAL TABLET 1 qd SIMVASTATIN 40 MG ORAL TABLET 494922 SIMVASTATIN Inactive PROZAC 20 MG ORAL CAPSULE 1 q d PROZAC 20 MG ORAL CAPSULE 097942 FLUOXETINE HCL Inactive DYAZIDE 37.5-25 MG ORAL CAPSULE 1 qd 5 DYAZIDE 37.5-25 MG ORAL CAPSULE 189238 TRIAMTERENE-HCTZ Inactive INNOPRAN XL 120 MG ORAL CAPSULE EXTENDED RELEASE 24 HO UR Take one by mouth daily INNOPRAN XL 120 MG ORAL CAPSULE EXTENDED RELEASE 24 HOUR PROPRANOLOL HCL SR BEADS Inactive PROMETHAZINE HCL 25 MG ORAL TABLET 1 Q. 4 hr. PRN 2013 PROMETHAZINE HCL 25 MG ORAL TABLET 823460 PROMETHAZINE HCL Inactive POTASSIUM CHLORIDE 20 MEQ ORAL PACKET by mouth twice a day prn 2 POTASSIUM CHLORIDE 20 MEQ ORAL PACKET 7789124 POTASSIUM CHLORIDE Inactive PHENADOZ 25 MG RECTAL SUPPOSITORY 1 every 4 hrs. PRN 2 PHENADOZ 25 MG RECTAL SUPPOSITORY 507473 PROMETHAZINE HCL Inactive ZOFRAN 8 MG ORAL TABLET 1 tab by mouth every 12 hours prn 4 ZOFRAN 8 MG ORAL TABLET 390963 ONDANSETRON HCL Inactive OMEPRAZOLE 20 MG ORAL CAPSULE DELAYED RELEASE 1 tablet by mo ut daily for GERD OMEPRAZOLE 20 MG ORAL CAPSULE DELAYED RELEASE 19 8051 OMEPRAZOLE Inactive CYCLOBENZAPRINE HCL 10 MG ORAL TABLET 1 tablet by mout h three times daily as needed for headaches CYCLOBENZAPRINE HCL 10 MG ORAL TABLET 322139 CYCLOBENZAPRINE HCL Inactive VITAMIN D3 4000 IU 1 tab 3 times daily VITAMIN D3 4000 IU Inactive PROPRANOLOL HCL 80 MG ORAL TABLET 1 tab tue. and thur. PROPRANOLOL HCL 80 MG ORAL TABLET 842527 PROPRANOLOL HCL Inacti ve CYANOCOBALAMIN 1000 MCG/ML INJECTION SOLUTION 1 injection ev ruben 2 weeks CYANOCOBALAMIN 1000 MCG/ML INJECTION SOLUTION 30 9594 CYANOCOBALAMIN Inactive MAGNESIUM GLUCONATE 250 MG ORAL TABLET 1 tab tid 23/10/23 MAGNESIUM GLUCONATE 250 MG ORAL TABLET 207671 MAGNESIUM GLUCONATE Inactive LOMOTIL 2.5-0.025 MG ORAL TABLET 1 tab by mouth prn 20 23/10/23 LOMOTIL 2.5-0.025 MG ORAL TABLET 4677679 DIPHENOXYLATE-ATROPINE Inac tive FLORANEX ORAL PACKET 1 pack three times daily, for bowel health FLORANEX ORAL PACKET 68462972462 LACTOBACILLUS Inactive IRON 325 (65 Fe) MG ORAL TABLET 1 every other day 2015 IRON 325 (65 Fe) MG ORAL TABLET 160416 FERROUS SULFATE Inactive FLAGYL 500 MG ORAL TABLET 1 pill by mouth three times daily, for diarrhea FLAGYL 500 MG ORAL TABLET 034060 METRONIDAZOLE I nactive BACTRIM DS 800-160 MG ORAL TABLET 1 pill by mouth twice claudio y, for UTI BACTRIM DS 800-160 MG ORAL TABLET 935354 SULFAMETHOXAZOLE-TRIMETHOPRIM Inactive Advance Directives Directive Description Start [...] 8.5-10.1 Lab Report: CBC W/DIFF - Hematology neutrophils as percent of blood leukocytes 57.4 % 42.2-75.2 monocytes as percent of blood leukocytes 6.1 % 1.7-9.3 lymphocytes as percent of blood leukocytes 30.8 % 20.5-51.1 erythrocyte (RBC) count 4.54 10^6/MM^3 10*6/mm3 3.80-5.8 0 hemoglobin, blood 13.7 g/dL 12.0-16.0 leukocyte count, blood 5.6 10^3/MM^3 10*3/mm3 4.6-10.2 [...] ... - Chemistry sodium, serum 141 mmol/L 923-993 7343/01/10 potassium, serum 3.7 mmol/L 3.5-5.2 chloride, serum 101 mmol/L 98-107 carbon dioxide, venous blood 31.0 mmol/L 21.0-32 .0 blood glucose 96 mg/dL 65-95 calcium, serum 9.5 mg/dL 8.5-10.1 urea nitrogen, blood 21 mg/dL 7-18 creatinine, serum 1.40 mg/dL 0.60-1.30 Estimated Glomerular Filtration Rate (calc) 39 (?) mL/min/1.73m2 = OR > 60 mL/min cholesterol, serum 211 mg/dL 115-955 0523/01/10 triglyceride, serum, fasting 77 mg/dL 30-200 HDL [...] ... - Chemistry sodium, serum 142 mmol/L 692-651 4137/04/16 carbon dioxide, venous blood 30.0 mmol/L 21.0-32 [...] 0.59-1.17 Encounters Code Encounter Date Provider Facility CPT-85391 [id number] Vst-Est Level III 09:15:19 [facility] Level 4 Est. Patient 15:35:24 CLINICAL ACADEMIC ALLERGIST Adam Yates MD [facility] CPT-69012 Level 3 New Patient 12:08:54 CLINICAL ACADEMIC ALLERGIST Adam Yates MD [facility] CPT-88082 23293-Pqc Vst-Est Level IV 19:48:30 CLINICAL ACADEMIC ALLERGIST Tracy Holt [facility] CPT-09761 34583-Vvi Vst-Est Level III 14:29:19 CDT Fiorella Holt [facility] CPT-70657 Level 2 Est. Patient 14:58:26 CDT Kylie boyd [facility] CPT-71701 Level 3 Est. Patient 08:15:24 CLINICAL ACADEMIC ALLERGIST Kylie boyd [facility] CPT-49640 Level 2 Est. Patient 14:27:16 CLINICAL ACADEMIC ALLERGIST [facility]03077 Level 3 Est. Patient 17:54:48 CDT Kylie boyd [facility] CPT-63474 Level 3 Est. Patient 16:26:30 CDT Kina blackmon [facility] CPT-46763 Level 3 New Patient 16:22:01 CLINICAL ACADEMIC ALLERGIST Adam Yates MD [facility] CPT-17740 Level 4 Est. Patient 17:00:48 CDT Kylie boyd [facility] CPT-65703 Level 3 Est. Patient 13:15:54 CDT Kylie boyd [facility] CPT-75516 Level 3 Est. Patient 09:10:11 CDT Kylie Lund [facility] CPT-91393 Level 4 Est. Patient 12:08:30 CLINICAL ACADEMIC ALLERGIST Hope cohn MD [facility] CPT-47913 Level 4 Est. Patient 19:08:42 CLINICAL ACADEMIC ALLERGIST Hope cohn MD PhD [facility] CPT-45125 Level 4 Est. Patient 20:04:51 CDT Hope cohn MD PhD [facility] CPT-75541 Level 3 New Patient 01:46:11 CLINICAL ACADEMIC ALLERGIST Hope landers MD PhD [facility] Procedures Code Procedure Name Date Entry Date Standard Desc ription CPT-J0897 Prolia 60 mg 10:36:55 CDT CPT-86452 Abx/Therapy Injection 10:36:55 CDT CPT-67269 Venipuncture Draw Fee 13:34:11 CDT CPT-G0439 Subsequent Annual Wellness Exam 09:15:19 CDT CPT-35379 Postop F/U Visit 15:45:41 CDT CPT-58521 Sono Soft Tissue Head and Neck - XRAY US E ONLY 11:56:06 CLINICAL ACADEMIC ALLERGIST CPT-18252 Abx/Therapy Injection 09:40:08 CLINICAL ACADEMIC ALLERGIST CPT-J0897 Prolia 60 mg 09:40:08 CLINICAL ACADEMIC ALLERGIST CPT-57429 First Vx - Ix admin for Medicare patients 02/08 10:02:45 CDT CPT-32572 Fluzone Quadrivalent Intramuscular Suspe nsion 0.5 ML 10:02:45 CDT CPT-40766 Magnesium - LAB USE ONLY 09:41:00 CDT 12/09 CPT-77514 Renal Panel - LAB USE ONLY 09:41:00 CDT 201 09/17/01 CPT-63679 Venipuncture Draw Fee 09:41:00 CDT CPT-87925 Calcium - LAB USE ONLY 17:25:11 CDT CPT-J0897 Prolia 60 mg 15:10:59 CDT CPT-81779 Abx/Therapy Injection 15:10:59 CDT CPT-G0439 Subsequent Annual Wellness Exam 14:29:19 CDT CPT-38975 Venipuncture Draw Fee 10:59:04 CDT CPT-83924 CMP - LAB USE ONLY 10:59:04 CDT CPT-75067 CBC with Diff - LAB USE ONLY 10:59:03 CDT 2 CPT-J0897 Prolia 60 mg 15:46:54 CLINICAL ACADEMIC ALLERGIST CPT-60942 Abx/Therapy Injection 15:46:54 CLINICAL ACADEMIC ALLERGIST CPT-16270 Microalbumin - LAB USE ONLY 09:41:32 CLINICAL ACADEMIC ALLERGIST 20 23/01/15 CPT-09035 Free T4 - LAB USE ONLY 09:41:32 CLINICAL ACADEMIC ALLERGIST CPT-03927 TSH - LAB USE ONLY 09:41:32 CLINICAL ACADEMIC ALLERGIST CPT-63195 BMP - LAB USE ONLY 09:41:32 CLINICAL ACADEMIC ALLERGIST CPT-85930 Venipuncture Draw Fee 09:41:32 CLINICAL ACADEMIC ALLERGIST CPT-01893 First Vx - Ix admin for Medicare patients 11:19:30 CDT CPT-38576 Fluzone High-Dose Intramuscular Suspension 12/07 11:19:30 CDT CPT-J0897 Prolia 60 mg 14:55:42 CDT CPT-10943 Abx/Therapy Injection 14:55:42 CDT CPT-69279 Bone Density - XRAY USE ONLY 10:27:12 CDT 2 CPT-G0439 [facility] Annual Wellness Exam 17:54:53 CDT CPT-58230 Foot, left, comp min 3V - XRAY USE ONLY 12:22:49 CDT CPT-G0009 Administration of Pneumococcal Vaccine 3 12:18:00 CDT CPT-09115 Pneumovax 23 Injection Injectable 25 MCG /0.5ML 12:18:00 CDT CPT-J0897 Prolia 60 mg 14:14:16 CLINICAL ACADEMIC ALLERGIST CPT-51385 Abx/Therapy Injection 14:14:15 CLINICAL ACADEMIC ALLERGIST CPT-14989 Lipid - LAB USE ONLY 10:01:52 CLINICAL ACADEMIC ALLERGIST 2 CPT-49989 Calcium - LAB USE ONLY 10:01:51 CLINICAL ACADEMIC ALLERGIST CPT-94478 Venipuncture Draw Fee 10:01:51 CLINICAL ACADEMIC ALLERGIST CPT-LR Lesion Removal 16:22:01 CLINICAL ACADEMIC ALLERGIST CPT-32025 TSH - LAB USE ONLY 14:26:02 CDT CPT-68049 CMP - LAB USE ONLY 14:26:01 CDT CPT-38981 CBC with Diff - LAB USE ONLY 14:26:01 CDT 2 CPT-75652 Venipuncture Draw Fee 14:26:01 CDT CPT-84783 First Vx - Ix admin for Medicare patients 13:27:08 CDT CPT-95020 Fluzone High-Dose Intramuscular Suspension 11/26 13:27:08 CDT CPT-G0438 Initial Annual Wellness Exam 14:19:57 CD T CPT-G0009 Administration of Pneumococcal Vaccine 9 11:36:25 CDT CPT-32698 Prevnar 13 Intramuscular Suspension 1 1:36:25 CDT CPT-37090 Prevnar 13 Intramuscular Suspension 1 0:40:58 CDT CPT-J0897 Prolia 60 mg 10:37:16 CDT CPT-66557 Abx/Therapy Injection 10:37:16 CDT CPT-J0897 Prolia 60 mg 16:09:34 CLINICAL ACADEMIC ALLERGIST CPT-J0897 Prolia 60 mg 11:10:35 CLINICAL ACADEMIC ALLERGIST CPT-10671 Abx/Therapy Injection 11:10:35 CLINICAL ACADEMIC ALLERGIST CPT-000 Give Appropriate Flu Vaccine 17:01:15 CLINICAL ACADEMIC ALLERGIST 2 CPT-69830 Fluzone High Dose (65+) 15:03:08 CLINICAL ACADEMIC ALLERGIST 02/15 CPT-38213 Immunization Single Admin 15:03:08 CLINICAL ACADEMIC ALLERGIST 2014 CPT-OV Office Visit 15:58:06 CDT CPT-J0897 Prolia 60 mg 08:45:38 CDT CPT-32539 Abx/Therapy Injection 08:45:38 CDT CPT-J3420 Vitamin B12 1000mcg (Cyanocobalamin) 09:26:20 CLINICAL ACADEMIC ALLERGIST CPT-00869 Abx/Therapy Injection 09:26:20 CLINICAL ACADEMIC ALLERGIST CPT-J3420 Vitamin B12 1000mcg (Cyanocobalamin) 09:44:40 CLINICAL ACADEMIC ALLERGIST CPT-91596 Abx/Therapy Injection 09:44:40 CLINICAL ACADEMIC ALLERGIST CPT-J3420 Vitamin B12 1000mcg (Cyanocobalamin) 09:15:54 CLINICAL ACADEMIC ALLERGIST CPT-74139 Abx/Therapy Injection 09:15:54 CLINICAL ACADEMIC ALLERGIST CPT-J3420 Vitamin B12 1000mcg (Cyanocobalamin) 09:46:44 CLINICAL ACADEMIC ALLERGIST CPT-68134 Abx/Therapy Injection 09:46:44 CLINICAL ACADEMIC ALLERGIST CPT-J3420 Vitamin B12 1000mcg (Cyanocobalamin) 09:47:34 CLINICAL ACADEMIC ALLERGIST CPT-54535 Abx/Therapy Injection 09:47:34 CLINICAL ACADEMIC ALLERGIST CPT-J3420 Vitamin B12 1000mcg (Cyanocobalamin) 14:35:50 CLINICAL ACADEMIC ALLERGIST CPT-J3420 Vitamin B12 1000mcg (Cyanocobalamin) 09:25:05 CLINICAL ACADEMIC ALLERGIST CPT-41917 Abx/Therapy Injection 09:25:05 CLINICAL ACADEMIC ALLERGIST CPT-G0008 Administration of Influenza Virus Vaccine 13:36:47 CDT CPT-63343 Fluzone High-Dose Intramuscular Suspension 11/15 13:36:47 CDT CPT-J0897 Prolia 60 mg 08:50:41 CDT CPT-33233 Abx/Therapy Injection 08:50:41 CDT CPT-80676 Bone Density 12:06:12 CDT CPT-14644 Bone Density 08:54:40 CDT CPT-OV Office Visit 15:37:02 CDT CPT-51023 Postop F/U Visit 15:47:49 CDT CPT-50827 Postop F/U Visit 15:21:02 CDT CPT-TCM Transitional Care Mgmt-High 07:52:27 CDT 20 20/06/01 CPT-01565 Venipuncture Draw Fee 13:51:18 CDT CPT-57000 Venipuncture Draw Fee 10:14:55 CLINICAL ACADEMIC ALLERGIST CPT-87790 Venipuncture Draw Fee 13:39:45 CLINICAL ACADEMIC ALLERGIST CPT-OV Office Visit 15:11:22 CLINICAL ACADEMIC ALLERGIST CPT-65307 Venipuncture Draw Fee 09:20:49 CLINICAL ACADEMIC ALLERGIST CPT-31716 Venipuncture Draw Fee 16:52:15 CLINICAL ACADEMIC ALLERGIST CPT-40467 Venipuncture Draw Fee 10:37:24 CLINICAL ACADEMIC ALLERGIST CPT-31640 Venipuncture Draw Fee 08:21:21 CLINICAL ACADEMIC ALLERGIST CPT-12279 Venipuncture Draw Fee 08:30:20 CLINICAL ACADEMIC ALLERGIST CPT-46937 Venipuncture Draw Fee 14:53:21 CLINICAL ACADEMIC ALLERGIST CPT-63542 Venipuncture Draw Fee 09:40:56 CLINICAL ACADEMIC ALLERGIST CPT-68932 Venipuncture Draw Fee 10:30:47 CLINICAL ACADEMIC ALLERGIST CPT-88026 Venipuncture Draw Fee 10:46:17 CLINICAL ACADEMIC ALLERGIST CPT-00216 Venipuncture Draw Fee 11:12:45 CLINICAL ACADEMIC ALLERGIST CPT-44552 Venipuncture Draw Fee 09:53:33 CLINICAL ACADEMIC ALLERGIST CPT-77070 Venipuncture Draw Fee 11:53:51 CLINICAL ACADEMIC ALLERGIST CPT-74148 Venipuncture Draw Fee 10:33:50 CLINICAL ACADEMIC ALLERGIST CPT-06241 Venipuncture Draw Fee 10:05:01 CLINICAL ACADEMIC ALLERGIST CPT-08603 Venipuncture Draw Fee 14:32:52 CLINICAL ACADEMIC ALLERGIST CPT-55694 Venipuncture Draw Fee 09:46:13 CLINICAL ACADEMIC ALLERGIST CPT-10196 Venipuncture Draw Fee 11:34:27 CLINICAL ACADEMIC ALLERGIST CPT-40208 Venipuncture Draw Fee 13:17:16 CLINICAL ACADEMIC ALLERGIST CPT-34540 Venipuncture Draw Fee 12:05:39 CDT CPT-46162 Venipuncture Draw Fee 12:49:12 CDT CPT-41440 Venipuncture Draw Fee 12:37:18 CDT CPT-05012 Venipuncture Draw Fee 10:57:11 CDT CPT-35306 Venipuncture Draw Fee 13:47:40 CDT CPT-19231 Venipuncture Draw Fee 10:02:17 CDT CPT-21923 TB Tubersol 17:32:32 CDT CPT-OV Office Visit 16:21:53 CDT CPT-OV Office Visit 15:49:22 CDT CPT-OV Office Visit 17:16:31 CDT CPT-OV Office Visit 10:43:31 CDT
--- OUTSIDE RECORDS SUMMARY | 2019-02-09 11:47 | XMS REPORT | Clinical Summary ---
Author Author Renaldo, Florecita Munoz Organization [facility] [facility] Address Unknown Phone Unavailable Allergies, Adverse Reactions, [...] PhD Hyperpotassemia GERD 530.81 Resolved Kylie Yokum LANGUAGE INTERPRETER Esophageal reflux Health maintenance exam V70.0 Resolved Adolfo Yates MD Routine general medical examination at a health care facility Anemia 285.9 Resolved Kylie Yanet LANGUAGE INTERPRETER Anemia, unspecified Personal history of malignant neoplasm of large intestine V10.05 Active Adam Yates MD Personal history of malignant neoplasm of large intestine Hypomagnesemia 275.2 Resolved Kylie Yanet LANGUAGE INTERPRETER Disorders of magnesium metabolism Weakness 780.79 Resolved [...] Sebaceous cyst, scalp 706.2 Resolved Kylie Yokum LANGUAGE INTERPRETER Sebaceous cyst Cervical lymphadenopathy, anterior, left 785.6 Resolv ed Kylie Yokum LANGUAGE INTERPRETER Enlargement of lymph nodes Need for prophylactic vaccination and inoculation against in fluenza V04.81 Resolved Adam Yates MD Need for prophylactic vaccination and inoculation against influenza Preventive health care V70.0 Resolved Kylie Lundu m LANGUAGE INTERPRETER Routine general medical examination at a health care facility Thyroid nodule, left 241.0 Resolved Selena Yates MD Nontoxic uninodular goiter Screening mammogram V76.12 Resolved Kylie Yokum A PRN Other screening mammogram Mandy 706.2 Resolved Kylie Yokum LANGUAGE INTERPRETER Sebaceous cyst Colon cancer, ascending 153.6 Resolved Kylie Yok um LANGUAGE INTERPRETER Malignant neoplasm of ascending colon Foot pain, left 729.5 Resolved Kylie Yokum LANGUAGE INTERPRETER Pain in limb Splinter 919.6 Resolved Kylie Yokum LANGUAGE INTERPRETER Superficial foreign body (splinter) of other, multiple, and unspecified sites, without major open wound and without mention of infection Rash 782.1 Resolved Kylie Yokum LANGUAGE INTERPRETER Rash and other nonspecific skin eruption Cyst 706.2 Resolved Kylie Yokum LANGUAGE INTERPRETER Sebaceous cyst Body Mass Index 23.0-23.9 Adult Refinement 2017 Kylie Yokum LANGUAGE INTERPRETER Body Mass Index between 19-24, adult BMI [...] RIGHT LOWER QUADRANT ICD-789.03 Inactive Kina Joshua LANGUAGE INTERPRETER ADENOCARCINOMA, COLON, 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 Dick Yates MD ABDOMINAL PAIN, GENERALIZED ICD-789.07 Inactive Hope Benavidez MD PhD FEVER UNSPECIFIED ICD-780.60 Inactive Hope cohn MD PhD UNSPECIFIED VENOUS INSUFFICIENCY ICD-459.81 Elda ctive Adam Yates MD ADENOCARCINOMA, 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 Inac tive Hope Benavidez MD PhD Hyperkalemia ICD-276.7 Inactive Hope Benavidez MD PhD GERD ICD-530.81 Inactive Kylieshubham Holt LANGUAGE INTERPRETER 2015 Health maintenance exam ICD-V70.0 Bam Yates MD Anemia ICD-285.9 Inactive Kylieshubham Holt LANGUAGE INTERPRETER 07/24 Hypomagnesemia ICD-275.2 Inactive Kylie Holt LANGUAGE INTERPRETER Weakness ICD-780.79 Inactive Hope Benavidez MD P [...] cyst, scalp ICD-706.2 Inactive Tracy hi Yokum LANGUAGE INTERPRETER Cervical lymphadenopathy, anterior, left ICD-785.6 Inactive Kylie Yokum LANGUAGE INTERPRETER Need for prophylactic vaccination and inoculation against in fluenza ICD-V04.81 Inactive Adam Yates MD Preventive health care ICD-V70.0 Inactive Ka thi Yokum LANGUAGE INTERPRETER Thyroid nodule, left ICD-241.0 Inactive Selena Yates MD Screening mammogram ICD-V76.12 Inactive Kylie Yokum LANGUAGE INTERPRETER Mandy ICD-706.2 Inactive Kylie Yokum LANGUAGE INTERPRETER 07/20 Colon cancer, ascending ICD-153.6 Inactive K athi Yokum LANGUAGE INTERPRETER Foot pain, left ICD-729.5 Inactive Kylie Yokum LANGUAGE INTERPRETER Splinter ICD-919.6 Inactive Kylie Yokum LANGUAGE INTERPRETER 2017 Rash ICD-782.1 Inactive Kylie Yokum LANGUAGE INTERPRETER 07/25 Cyst ICD-706.2 Inactive Kylie Yokum LANGUAGE INTERPRETER 08/11 Unspecified fall, initial encounter ICD-E888.9 Inactive Kylie Yokum LANGUAGE INTERPRETER Eye pain, left ICD-379.91 Inactive Kylie Holt [...] MCG ORAL TABLET 1 daily LEVOTHYROXINE SODIUM 60080475372 Active Kylie Holt APRN Active VOLTAREN 1 % TRANSDERMAL GEL apply 2 grams q 6-8 hour to left arm as needed for pain DICLOFENAC SODIUM 05297561743 Active Kylie Marrero Active IMODIUM A-D 2 MG ORAL TABLET 1 tablet twice a day LOPERAMIDE HCL 87811879344 Active Kylie Holt APRN Active COQ10 100 MG ORAL CAPSULE 1 daily COENZYME Q10 167148 05305 Active LETY Nation Active VITAMIN D3 2000 UNIT ORAL CAPSULE [place]-One daily CHOLECALCIFEROL 59307997872 Active Kylie Holt APRN Active PROBIOTIC DAILY ORAL CAPSULE Take one daily PROBIO TIC PRODUCT 76343136040 Active Kylie Holt APRN Active IRON 325 (65 Fe) MG ORAL TABLET 1 every other day FERROUS SULFATE 18763524879 No Longer Active Kylie Holt APRN Active FLORANEX ORAL PACKET 1 pack three times daily, for bowel health LACTOBACILLUS 58739852060 No Longer Active Kylie Holt APRN Active LOMOTIL 2.5-0.025 MG ORAL TABLET 1 tab by mouth prn 20 23/10/23 DIPHENOXYLATE-ATROPINE 75680618172 No Longer Active Kylie Polakum LANGUAGE INTERPRETER Active MAGNESIUM GLUCONATE 250 MG ORAL TABLET 1 tab tid 20 23/10/23 MAGNESIUM GLUCONATE 61048610590 No Longer Active Kylie Yokum LANGUAGE INTERPRETER Active CYANOCOBALAMIN 1000 MCG/ML INJECTION SOLUTION 1 injection ev ruben 2 weeks CYANOCOBALAMIN 48076344741 No Longer Active Kylie Kevon um LANGUAGE INTERPRETER Active ATENOLOL 25 MG ORAL TABLET 1/2 pill by mouth daily, fo r headaches, blood pressure ATENOLOL 97262080841 Active Kylie Yokum LANGUAGE INTERPRETER Active PROPRANOLOL HCL 80 MG ORAL TABLET 1 tab tue. and thur. PROPRANOLOL HCL 95214525598 No Longer Active Hope Benavidez MD PhD A ctive VITAMIN D3 4000 IU 1 tab 3 times daily VITAMIN D3 4000 IU No Longer Active Hope Benavidez MD PhD Active BACTRIM DS 800-160 MG ORAL TABLET 1 pill by mouth twice claudio y, for UTI SULFAMETHOXAZOLE-TRIMETHOPRIM 24117875299 No Longer Active Hope Benavidez MD PhD Active PROLIA 60 MG/ML SUBCUTANEOUS SOLUTION 1 shot every 6 months for osteoprosis DENOSUMAB 23667620020 Active Hope Benavidez MD PhD Active CALCIUM + D + K 750-500-40 MG-UNT-MCG ORAL TABLET 1 tab by m [facility] twice daily CALCIUM-VITAMIN D-VITAMIN K 87443891509 Active Hope valdez MD PhD Active DAILY VALUE MULTIVITAMIN ORAL TABLET 1 tab by mouth twice daily 201 05/16/14 MULTIPLE VITAMIN 53575353886 Active Hope Benavidez MD PhD Acti ve FISH OIL 306 MG CAPS 1 tab by mouth three times daily OMEGA-3 FATTY ACIDS 33668483607 Active Hope Benavidez MD PhD Active LUTEIN 10 MG ORAL TABLET 1 tab daily LUTEIN 69863159 408 Active Hope Benavidez MD PhD Active TRIAMTERENE-HCTZ 37.5-25 MG ORAL TABLET 1 tab by mouth daily 10/22 TRIAMTERENE-HCTZ 09914703247 Active Kylie Holt AMY Active CYCLOBENZAPRINE HCL 10 MG ORAL TABLET 1 tablet by [facility] three times daily as needed for headaches CYCLOBENZAPRINE HCL 46704938508 No Longer Active Adam Yates MD Active OMEPRAZOLE 20 MG ORAL CAPSULE DELAYED RELEASE 1 tablet by mo [facility] daily for GERD OMEPRAZOLE 47541412829 No Longer Active Adam Yates MD Active ZOFRAN 8 MG ORAL TABLET 1 tab by mouth every 12 hours prn 4 ONDANSETRON HCL 88798668395 No Longer Active Adam Yates MD Active PHENADOZ 25 MG RECTAL SUPPOSITORY 1 every 4 hrs. PRN 2 PROMETHAZINE HCL 89051755797 No Longer Active Adam Yates MD A ctive POTASSIUM CHLORIDE 20 MEQ ORAL PACKET by mouth twice a day prn 2 POTASSIUM CHLORIDE 21916175554 No Longer Active Adam Carpenter MD Active PROMETHAZINE HCL 25 MG ORAL TABLET 1 Q. 4 hr. PRN PROMETHAZINE HCL 13797212426 No Longer Active Adam Yates MD Active INNOPRAN XL 120 MG ORAL CAPSULE EXTENDED RELEASE 24 HO UR Take one by mouth daily PROPRANOLOL HCL SR BEADS 84035120843 No Longer Active Adam Yates MD Active FLAGYL 500 MG ORAL TABLET 1 pill by mouth three times daily, for diarrhea METRONIDAZOLE 01948989233 No Longer Active Hope landers MD PhD Active DYAZIDE 37.5-25 MG ORAL CAPSULE 1 qd TRIA MTERENE-HCTZ 30805835627 No Longer Active Hope Benavidez MD PhD Active PROZAC 20 MG ORAL CAPSULE 1 q d FLUOXETINE HCL 34849613409 No Longer Active Hope Benavidez MD PhD Active SIMVASTATIN 40 MG ORAL TABLET 1 qd SIMVAS TATIN 63303560272 No Longer Active Adam Yates MD Active MELOXICAM 15 MG ORAL TABLET 1 qd MELOXICAM 40785056944 No Longer Active Adam Yates MD Active EXCEDRIN EXTRA STRENGTH 250-250-65 MG ORAL TABLET 1-[address] N headache [id number] 67559093328 Active Hope Benavidez MD PhD Active FLAGYL 500 MG ORAL TABLET 1 qid METRONIDAZOL E 95799646100 No Longer Active Adam Yates MD Active LEVAQUIN 750 MG ORAL TABLET 1 qd LEVOFLOXAC IN 99180873173 No Longer Active Adam Yates MD Active ADULT ASPIRIN LOW STRENGTH 81 MG ORAL TABLET DISINTEGRATING 1 qd ASPIRIN 36031165057 Active Hope Benavidez MD PhD Active LEVAQUIN 750 MG ORAL TABLET 1 qd LEVAQUIN 750 MG ORAL TABLET 185952 LEVOFLOXACIN Inactive FLAGYL 500 MG ORAL TABLET 1 qid FLAGYL 500 MG ORAL TABLET 279091 METRONIDAZOLE Inactive MELOXICAM 15 MG ORAL TABLET 1 qd MELOXICAM 15 MG ORAL TABLET 298394 MELOXICAM Inactive SIMVASTATIN 40 MG ORAL TABLET 1 qd SIMVASTATIN 40 MG ORAL TABLET 041518 SIMVASTATIN Inactive PROZAC 20 MG ORAL CAPSULE 1 q d PROZAC 20 MG ORAL CAPSULE 415795 FLUOXETINE HCL Inactive DYAZIDE 37.5-25 MG ORAL CAPSULE 1 qd 5 DYAZIDE 37.5-25 MG ORAL CAPSULE 373866 TRIAMTERENE-HCTZ Inactive INNOPRAN XL 120 MG ORAL CAPSULE EXTENDED RELEASE 24 HO UR Take one by mouth daily INNOPRAN XL 120 MG ORAL CAPSULE EXTENDED RELEASE 24 HOUR PROPRANOLOL HCL SR BEADS Inactive PROMETHAZINE HCL 25 MG ORAL TABLET 1 Q. 4 hr. PRN 2013 PROMETHAZINE HCL 25 MG ORAL TABLET 508763 PROMETHAZINE HCL Inactive POTASSIUM CHLORIDE 20 MEQ ORAL PACKET by mouth twice a day prn 2 POTASSIUM CHLORIDE 20 MEQ ORAL PACKET 5911476 POTASSIUM CHLORIDE Inactive PHENADOZ 25 MG RECTAL SUPPOSITORY 1 every 4 hrs. PRN 2 PHENADOZ 25 MG RECTAL SUPPOSITORY 711887 PROMETHAZINE HCL Inactive ZOFRAN 8 MG ORAL TABLET 1 tab by mouth every 12 hours prn 4 ZOFRAN 8 MG ORAL TABLET 795317 ONDANSETRON HCL Inactive OMEPRAZOLE 20 MG ORAL CAPSULE DELAYED RELEASE 1 tablet by mo ut daily for GERD OMEPRAZOLE 20 MG ORAL CAPSULE DELAYED RELEASE 19 8051 OMEPRAZOLE Inactive CYCLOBENZAPRINE HCL 10 MG ORAL TABLET 1 tablet by mout h three times daily as needed for headaches CYCLOBENZAPRINE HCL 10 MG ORAL TABLET 557615 CYCLOBENZAPRINE HCL Inactive VITAMIN D3 4000 IU 1 tab 3 times daily VITAMIN D3 4000 IU Inactive PROPRANOLOL HCL 80 MG ORAL TABLET 1 tab tue. and thur. PROPRANOLOL HCL 80 MG ORAL TABLET 000741 PROPRANOLOL HCL Inacti ve CYANOCOBALAMIN 1000 MCG/ML INJECTION SOLUTION 1 injection ev ruben 2 weeks CYANOCOBALAMIN 1000 MCG/ML INJECTION SOLUTION 30 9594 CYANOCOBALAMIN Inactive MAGNESIUM GLUCONATE 250 MG ORAL TABLET 1 tab tid 23/10/23 MAGNESIUM GLUCONATE 250 MG ORAL TABLET 527387 MAGNESIUM GLUCONATE Inactive LOMOTIL 2.5-0.025 MG ORAL TABLET 1 tab by mouth prn 20 23/10/23 LOMOTIL 2.5-0.025 MG ORAL TABLET 2362879 DIPHENOXYLATE-ATROPINE Inac tive FLORANEX ORAL PACKET 1 pack three times daily, for bowel health FLORANEX ORAL PACKET 38651270261 LACTOBACILLUS Inactive IRON 325 (65 Fe) MG ORAL TABLET 1 every other day 2015 IRON 325 (65 Fe) MG ORAL TABLET 080737 FERROUS SULFATE Inactive FLAGYL 500 MG ORAL TABLET 1 pill by mouth three times daily, for diarrhea FLAGYL 500 MG ORAL TABLET 232290 METRONIDAZOLE I nactive BACTRIM DS 800-160 MG ORAL TABLET 1 pill by mouth twice claudio y, for UTI BACTRIM DS 800-160 MG ORAL TABLET 243908 SULFAMETHOXAZOLE-TRIMETHOPRIM Inactive Advance Directives Directive Description Start [...] ... - Chemistry sodium, serum 141 mmol/L 254-786 0077/01/10 potassium, serum 3.7 mmol/L 3.5-5.2 chloride, serum 101 mmol/L 98-107 carbon dioxide, venous blood 31.0 mmol/L 21.0-32 .0 blood glucose 96 mg/dL 65-95 calcium, serum 9.5 mg/dL 8.5-10.1 urea nitrogen, blood 21 mg/dL 7-18 creatinine, serum 1.40 mg/dL 0.60-1.30 Estimated Glomerular Filtration Rate (calc) 39 (?) mL/min/1.73m2 = OR > 60 mL/min cholesterol, serum 211 mg/dL 924-626 9083/01/10 triglyceride, serum, fasting 77 mg/dL 30-200 HDL [...] 0.82 ng/dL 0.59-1.17 sodium, serum 142 mmol/L 955-085 1084/04/16 carbon dioxide, venous blood 30.0 mmol/L 21.0-32 [...] - Chelle radha sodium, serum 142 mmol/L 024-328 5585/11/02 potassium, serum 3.4 mmol/L 3.5-5.2 chloride, serum [...] 0.59-1.17 Encounters Code Encounter Date Provider Facility CPT-12043 [id number] Vst-Est Level III 09:15:19 CDT Fiorella Holt [facility] [facility] [place] CPT-71072 Level 4 Est. Patient 15:35:24 DIRECTOR OF OUTSIDE SALES Adam Yates MD [facility] CPT-65884 Level 3 New Patient 12:08:54 DIRECTOR OF OUTSIDE SALES Adam Yates MD [facility] CPT-00524 [id number] Vst-Est Level IV 19:48:30 DIRECTOR OF OUTSIDE SALES Tracy Holt [facility] [place] [facility] [place] CPT-98332 [id number] Vst-Est Level III 14:29:19 CDT Fiorella Holt [facility] [place] [facility] [place] CPT-73471 Level 2 Est. Patient 14:58:26 CDT Kylie boyd [facility] [place] [facility] [place] CPT-10833 Level 3 Est. Patient 08:15:24 DIRECTOR OF OUTSIDE SALES Kylie boyd [facility] CPT-06510 Level 2 Est. Patient 14:27:16 DIRECTOR OF OUTSIDE SALES Kylie boyd [facility] CPT-23353 Level 3 Est. Patient 17:54:48 CDT Kylie boyd [facility] CPT-30860 Level 3 Est. Patient 16:26:30 CDT Kina blackmon [facility] [place] CPT-65327 Level 3 New Patient 16:22:01 DIRECTOR OF OUTSIDE SALES Adam Yates MD [facility] CPT-42755 Level 4 Est. Patient 17:00:48 CDT Kylie boyd [facility] CPT-04972 Level 3 Est. Patient 13:15:54 CDT Kylie boyd [facility] CPT-21751 Level 3 Est. Patient 09:10:11 CDT Kylie boyd [facility] CPT-12750 Level 4 Est. Patient 12:08:30 DIRECTOR OF OUTSIDE SALES Hope cohn MD [facility] CPT-01341 Level 4 Est. Patient 19:08:42 DIRECTOR OF OUTSIDE SALES Hope cohn MD [facility] CPT-32922 Level 4 Est. Patient 20:04:51 CDT [facility] cohn [facility] CPT-44056 Level 3 New Patient 01:46:11 DIRECTOR OF OUTSIDE SALES Hope landers MD [facility] Procedures Code Procedure Name Date Entry Date Standard Desc ription CPT-02471 Venipuncture Draw Fee 13:34:11 CDT CPT-G0439 [facility] Annual Wellness Exam 09:15:19 CDT CPT-51853 Postop F/U Visit 15:45:41 CDT CPT-56830 Sono Soft Tissue Head and Neck - XRAY US E ONLY 11:56:06 DIRECTOR OF OUTSIDE SALES CPT-54151 Abx/Therapy Injection 09:40:08 DIRECTOR OF OUTSIDE SALES CPT-J0897 Prolia 60 mg 09:40:08 DIRECTOR OF OUTSIDE SALES CPT-17013 First Vx - Ix admin for Medicare patients 02/08 10:02:45 CDT CPT-48442 Fluzone Quadrivalent Intramuscular Suspe nsion 0.5 ML 10:02:45 CDT CPT-68015 Magnesium - LAB USE ONLY 09:41:00 CDT 12/09 CPT-63753 Renal Panel - LAB USE ONLY 09:41:00 CDT 201 09/17/01 CPT-24013 Venipuncture Draw Fee 09:41:00 CDT CPT-24545 Calcium - LAB USE ONLY 17:25:11 CDT CPT-J0897 Prolia 60 mg 15:10:59 CDT CPT-99776 Abx/Therapy Injection 15:10:59 CDT CPT-G0439 [facility] Annual Wellness Exam 14:29:19 CDT CPT-37317 Venipuncture Draw Fee 10:59:04 CDT CPT-84308 CMP - LAB USE ONLY 10:59:04 CDT CPT-92785 CBC with Diff - LAB USE ONLY 10:59:03 CDT 2 CPT-J0897 Prolia 60 mg 15:46:54 DIRECTOR OF OUTSIDE SALES CPT-73303 Abx/Therapy Injection 15:46:54 DIRECTOR OF OUTSIDE SALES CPT-59445 Microalbumin - LAB USE ONLY 09:41:32 DIRECTOR OF OUTSIDE SALES 20 23/01/15 CPT-79303 Free T4 - LAB USE ONLY 09:41:32 DIRECTOR OF OUTSIDE SALES CPT-14900 TSH - LAB USE ONLY 09:41:32 DIRECTOR OF OUTSIDE SALES CPT-08638 BMP - LAB USE ONLY 09:41:32 DIRECTOR OF OUTSIDE SALES CPT-59449 Venipuncture Draw Fee 09:41:32 DIRECTOR OF OUTSIDE SALES CPT-13937 First Vx - Ix admin for Medicare patients 11:19:30 CDT CPT-57753 Fluzone High-Dose Intramuscular Suspension 12/07 11:19:30 CDT CPT-J0897 Prolia 60 mg 14:55:42 CDT CPT-11459 Abx/Therapy Injection 14:55:42 CDT CPT-56208 Bone Density - XRAY USE ONLY 10:27:12 CDT 2 CPT-G0439 Subsequent Annual Wellness Exam 17:54:53 CDT CPT-19529 Foot, left, comp min 3V - XRAY USE ONLY 12:22:49 CDT CPT-G0009 Administration of Pneumococcal Vaccine 3 12:18:00 CDT CPT-40069 Pneumovax 23 Injection Injectable 25 MCG /0.5ML 12:18:00 CDT CPT-J0897 Prolia 60 mg 14:14:16 DIRECTOR OF OUTSIDE SALES CPT-45867 Abx/Therapy Injection 14:14:15 DIRECTOR OF OUTSIDE SALES CPT-39012 Lipid - LAB USE ONLY 10:01:52 DIRECTOR OF OUTSIDE SALES 2 CPT-87445 Calcium - LAB USE ONLY 10:01:51 DIRECTOR OF OUTSIDE SALES CPT-46249 Venipuncture Draw Fee 10:01:51 DIRECTOR OF OUTSIDE SALES CPT-LR Lesion Removal 16:22:01 DIRECTOR OF OUTSIDE SALES CPT-20395 TSH - LAB USE ONLY 14:26:02 CDT CPT-69725 CMP - LAB USE ONLY 14:26:01 CDT CPT-61497 CBC with Diff - LAB USE ONLY 14:26:01 CDT 2 CPT-36867 Venipuncture Draw Fee 14:26:01 CDT CPT-16104 First Vx - Ix admin for Medicare patients 13:27:08 CDT CPT-82106 Fluzone High-Dose Intramuscular Suspension 11/26 13:27:08 CDT CPT-G0438 Initial Annual Wellness Exam 14:19:57 CD T CPT-G0009 Administration of Pneumococcal Vaccine 9 11:36:25 CDT CPT-95961 Prevnar 13 Intramuscular Suspension 1 1:36:25 CDT CPT-37897 Prevnar 13 Intramuscular Suspension 1 0:40:58 CDT CPT-J0897 Prolia 60 mg 10:37:16 CDT CPT-97953 Abx/Therapy Injection 10:37:16 CDT CPT-J0897 Prolia 60 mg 16:09:34 DIRECTOR OF OUTSIDE SALES CPT-J0897 Prolia 60 mg 11:10:35 DIRECTOR OF OUTSIDE SALES CPT-11792 Abx/Therapy Injection 11:10:35 DIRECTOR OF OUTSIDE SALES CPT-000 Give Appropriate Flu Vaccine 17:01:15 DIRECTOR OF OUTSIDE SALES 2 CPT-89749 Fluzone High Dose (65+) 15:03:08 DIRECTOR OF OUTSIDE SALES 02/15 CPT-35841 Immunization Single Admin 15:03:08 DIRECTOR OF OUTSIDE SALES 2014 CPT-OV Office Visit 15:58:06 CDT CPT-J0897 Prolia 60 mg 08:45:38 CDT CPT-31815 Abx/Therapy Injection 08:45:38 CDT CPT-J3420 Vitamin B12 1000mcg (Cyanocobalamin) 09:26:20 DIRECTOR OF OUTSIDE SALES CPT-01918 Abx/Therapy Injection 09:26:20 DIRECTOR OF OUTSIDE SALES CPT-J3420 Vitamin B12 1000mcg (Cyanocobalamin) 09:44:40 DIRECTOR OF OUTSIDE SALES CPT-87922 Abx/Therapy Injection 09:44:40 DIRECTOR OF OUTSIDE SALES CPT-J3420 Vitamin B12 1000mcg (Cyanocobalamin) 09:15:54 DIRECTOR OF OUTSIDE SALES CPT-80108 Abx/Therapy Injection 09:15:54 DIRECTOR OF OUTSIDE SALES CPT-J3420 Vitamin B12 1000mcg (Cyanocobalamin) 09:46:44 DIRECTOR OF OUTSIDE SALES CPT-25629 Abx/Therapy Injection 09:46:44 DIRECTOR OF OUTSIDE SALES CPT-J3420 Vitamin B12 1000mcg (Cyanocobalamin) 09:47:34 DIRECTOR OF OUTSIDE SALES CPT-14875 Abx/Therapy Injection 09:47:34 DIRECTOR OF OUTSIDE SALES CPT-J3420 Vitamin B12 1000mcg (Cyanocobalamin) 14:35:50 DIRECTOR OF OUTSIDE SALES CPT-J3420 Vitamin B12 1000mcg (Cyanocobalamin) 09:25:05 DIRECTOR OF OUTSIDE SALES CPT-43247 Abx/Therapy Injection 09:25:05 DIRECTOR OF OUTSIDE SALES CPT-G0008 Administration of Influenza Virus Vaccine 13:36:47 CDT CPT-17650 Fluzone High-Dose Intramuscular Suspension 11/15 13:36:47 CDT CPT-J0897 Prolia 60 mg 08:50:41 CDT CPT-25625 Abx/Therapy Injection 08:50:41 CDT CPT-27858 Bone Density 12:06:12 CDT CPT-44499 Bone Density 08:54:40 CDT CPT-OV Office Visit 15:37:02 CDT CPT-69799 Postop F/U Visit 15:47:49 CDT CPT-37722 Postop F/U Visit 15:21:02 CDT CPT-[facility] Transitional Care Mgmt-High 07:52:27 CDT 20 20/06/01 CPT-02937 Venipuncture Draw Fee 13:51:18 CDT CPT-45055 Venipuncture Draw Fee 10:14:55 DIRECTOR OF OUTSIDE SALES CPT-98420 Venipuncture Draw Fee 13:39:45 DIRECTOR OF OUTSIDE SALES CPT-OV Office Visit 15:11:22 DIRECTOR OF OUTSIDE SALES CPT-29747 Venipuncture Draw Fee 09:20:49 DIRECTOR OF OUTSIDE SALES CPT-44148 Venipuncture Draw Fee 16:52:15 DIRECTOR OF OUTSIDE SALES CPT-73427 Venipuncture Draw Fee 10:37:24 DIRECTOR OF OUTSIDE SALES CPT-87981 Venipuncture Draw Fee 08:21:21 DIRECTOR OF OUTSIDE SALES CPT-79283 Venipuncture Draw Fee 08:30:20 DIRECTOR OF OUTSIDE SALES CPT-08047 Venipuncture Draw Fee 14:53:21 DIRECTOR OF OUTSIDE SALES CPT-93946 Venipuncture Draw Fee 09:40:56 DIRECTOR OF OUTSIDE SALES CPT-83527 Venipuncture Draw Fee 10:30:47 DIRECTOR OF OUTSIDE SALES CPT-34770 Venipuncture Draw Fee 10:46:17 DIRECTOR OF OUTSIDE SALES CPT-05503 Venipuncture Draw Fee 11:12:45 DIRECTOR OF OUTSIDE SALES CPT-31814 Venipuncture Draw Fee 09:53:33 DIRECTOR OF OUTSIDE SALES CPT-88741 Venipuncture Draw Fee 11:53:51 DIRECTOR OF OUTSIDE SALES CPT-12698 Venipuncture Draw Fee 10:33:50 DIRECTOR OF OUTSIDE SALES CPT-95165 Venipuncture Draw Fee 10:05:01 DIRECTOR OF OUTSIDE SALES CPT-50455 Venipuncture Draw Fee 14:32:52 DIRECTOR OF OUTSIDE SALES CPT-28292 Venipuncture Draw Fee 09:46:13 DIRECTOR OF OUTSIDE SALES CPT-59934 Venipuncture Draw Fee 11:34:27 DIRECTOR OF OUTSIDE SALES CPT-69222 Venipuncture Draw Fee 13:17:16 DIRECTOR OF OUTSIDE SALES CPT-13526 Venipuncture Draw Fee 12:05:39 CDT CPT-79961 Venipuncture Draw Fee 12:49:12 CDT CPT-48221 Venipuncture Draw Fee 12:37:18 CDT CPT-23299 Venipuncture Draw Fee 10:57:11 CDT CPT-67984 Venipuncture Draw Fee 13:47:40 CDT CPT-07724 Venipuncture Draw Fee 10:02:17 CDT CPT-27700 TB Tubersol 17:32:32 CDT CPT-OV Office Visit 16:21:53 CDT CPT-OV Office Visit 15:49:22 CDT CPT-OV Office Visit 17:16:31 CDT CPT-OV Office Visit 10:43:31 CDT
--- OUTSIDE RECORDS SUMMARY | 2019-02-09 11:47 | XMS REPORT | Clinical Summary ---
Author Author Renaldo, Florecita Munoz Organization [facility] [employer] Address Unknown Phone Unavailable Allergies, Adverse Reactions, [...] PhD Hyperpotassemia GERD 530.81 Resolved Kylie Yokum [employer] Esophageal reflux Health maintenance exam V70.0 Resolved Adolfo Yates MD Routine general medical examination at a health care facility Anemia 285.9 Resolved Kylie Holt [employer] Anemia, unspecified Personal history of malignant neoplasm of large intestine V10.05 Active Adam Yates MD Personal history of malignant neoplasm of large intestine Hypomagnesemia 275.2 Resolved Kylie Holt [employer] Disorders of magnesium metabolism Weakness 780.79 Resolved [...] Sebaceous cyst, scalp 706.2 Resolved Kylie Yokum [employer] Sebaceous cyst Cervical lymphadenopathy, anterior, left 785.6 Resolv ed Kylie Yokum [employer] Enlargement of lymph nodes Need for prophylactic vaccination and inoculation against in fluenza V04.81 Resolved Adam Yates MD Need for prophylactic vaccination and inoculation against influenza Preventive health care V70.0 Resolved Kylie Lundu m [employer] Routine general medical examination at a health care facility Thyroid nodule, left 241.0 Resolved Selena Yates MD Nontoxic uninodular goiter Screening mammogram V76.12 Resolved Kylie Yokum A PRN Other screening mammogram Mnady 706.2 Resolved Kylie Yokum [employer] Sebaceous cyst Colon cancer, ascending 153.6 Resolved Kylie Yok um [employer] Malignant neoplasm of ascending colon Foot pain, left 729.5 Resolved Kylie Yokum [employer] Pain in limb Splinter 919.6 Resolved Kylie Yokum [employer] Superficial foreign body (splinter) of other, multiple, and unspecified sites, without major open wound and without mention of infection Rash 782.1 Resolved Kylie Yokum [employer] Rash and other nonspecific skin eruption Cyst 706.2 Resolved Kylie Yokum [employer] Sebaceous cyst Body Mass Index 23.0-23.9 Adult Refinement 2017 Kylie Yokum [employer] Body Mass Index between 19-24, adult BMI less than 20 Refinement Adam wiggins MD Body Mass Index between 19-24, adult BMI 24-24.9 Refinement Adam Yates MD Body Mass Index between 19-24, adult BMI 23-23.9 Active dAam Yates MD Body Mass Index between 19-24, [...] RIGHT LOWER QUADRANT ICD-789.03 Inactive Kina Joshua [employer] ADENOCARCINOMA, COLON, 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 Dick Yates MD ABDOMINAL PAIN, GENERALIZED ICD-789.07 Inactive Hope Benavidez MD PhD FEVER UNSPECIFIED ICD-780.60 Inactive Hope cohn MD PhD UNSPECIFIED VENOUS INSUFFICIENCY ICD-459.81 Elda ctive Adam Yates MD ADENOCARCINOMA, 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 Inac tizaynab Benavidez MD PhD Hyperkalemia ICD-276.7 Inactive Hope Benavidez MD PhD Health maintenance exam ICD-V70.0 Bam Yates MD Anemia ICD-285.9 Inactive Kylie Escalonapari [employer] 07/24 GERD ICD-530.81 Inactive Kylie Yanet [employer] 2015 Hypomagnesemia ICD-275.2 Inactive Kylieshubham Holt [employer] Weakness ICD-780.79 Inactive Hope Benavidez MD P hD Asymptomatic postmenopausal status (age-related) (natural) I CD-V49.81 Inactive Hope Benavidez MD PhD Diarrhea, functional ICD-564.5 Inactive Selena Yates MD Dysuria ICD-788.1 Inactive Hope Benavidez MD PhD 201 05/19/01 Adenocarcinoma, ascending colon ICD-153.6 Inac abdelrahman Yates MD Sebaceous cyst, scalp ICD-706.2 Inactive Tracy hi Yokum [employer] Cervical lymphadenopathy, anterior, left ICD-785.6 Inactive Kylie Yokum [employer] Need for prophylactic vaccination and inoculation against in fluenza ICD-V04.81 Inactive Adam Yates MD Aftercare following surgery of the teeth,oral cavity a nd digestive system, NEC ICD-V58.75 Inactive Adam Yates MD Thyroid nodule, left ICD-241.0 Inactive Selena Yates MD Colon cancer ICD-153.9 Inactive Adam luna MD Mandy ICD-706.2 Inactive Kylie Yokum [employer] 07/20 Colon cancer, ascending ICD-153.6 Inactive K athi Yokum [employer] Foot pain, left ICD-729.5 Inactive Kylie Yokum [employer] Splinter ICD-919.6 Inactive Kylie Yokum [employer] 2017 Rash ICD-782.1 Inactive Kylie Yokum [employer] 07/25 Cyst ICD-706.2 Inactive Kylie Yokum [employer] 08/11 Preventive health care ICD-V70.0 Inactive Ka thi Yokum [employer] Unspecified fall, initial encounter ICD-E888.9 Inactive Kylie Yokum [employer] Eye pain, left ICD-379.91 Inactive Kylie Yokum [employer] Pharyngitis, acute ICD-074.0 Inactive Kavin Yates MD Hypomagnesemia ICD-275.2 Inactive Adam Franklin MD Hypokalemia ICD-276.8 Inactive Adam enamorado MD Enlarged thyroid ICD-240.9 Inactive Adam Yates MD Underweight Inactive LETY Nation 05/17 Follicular adenoma, thyroid ICD-226 Inactive Adam Yates MD Screening mammogram ICD-V76.12 Inactive Kylie Holt APRN Medication List Medication Instructions Start Date Stop Date Generic Name NDC Status Provider Patient Instruction LEVOTHYROXINE SODIUM 50 MCG ORAL TABLET 1 daily LEVOTHYROXINE SODIUM 42540344288 Active Kylie Holt APRN Active VOLTAREN 1 % TRANSDERMAL GEL apply 2 grams q 6-8 hour to left arm as needed for pain DICLOFENAC SODIUM 74372330732 Active Kylie Marrero Active IMODIUM A-D 2 MG ORAL TABLET 1 tablet twice a day LOPERAMIDE HCL 65595201339 Active Kylie Holt APRN Active COQ10 100 MG ORAL CAPSULE 1 daily COENZYME Q10 594761 61728 Active LETY [place] Active VITAMIN D3 2000 UNIT ORAL CAPSULE Melaleuca-One daily CHOLECALCIFEROL 44020178343 Active Kylie Holt APRN Active PROBIOTIC DAILY ORAL CAPSULE Take one daily PROBIO TIC PRODUCT 86484608716 Active Kylie Holt APRN Active IRON 325 (65 Fe) MG ORAL TABLET 1 every other day FERROUS SULFATE 00496062630 No Longer Active Kylie Holt APRN Active FLORANEX ORAL PACKET 1 pack three times daily, for bowel health LACTOBACILLUS 53040038181 No Longer Active Kylie Holt APRN Active LOMOTIL 2.5-0.025 MG ORAL TABLET 1 tab by mouth prn 20 23/10/23 DIPHENOXYLATE-ATROPINE 18085639846 No Longer Active Kylie Lundum [employer] Active MAGNESIUM GLUCONATE 250 MG ORAL TABLET 1 tab tid 20 23/10/23 MAGNESIUM GLUCONATE 07987512702 No Longer Active Kylie Polakum [employer] Active CYANOCOBALAMIN 1000 MCG/ML INJECTION SOLUTION 1 injection ev ruben 2 weeks CYANOCOBALAMIN 49315419584 No Longer Active Kylie Lund um [employer] Active ATENOLOL 25 MG ORAL TABLET 1/2 pill by mouth daily, fo r headaches, blood pressure ATENOLOL 68689200333 Active Kylie Lundum [employer] Active PROPRANOLOL HCL 80 MG ORAL TABLET 1 tab tue. and thur. PROPRANOLOL HCL 80357677120 No Longer Active Hope Benavidez MD PhD A ctive VITAMIN D3 4000 IU 1 tab 3 times daily VITAMIN D3 4000 IU No Longer Active Hope Benavidez MD PhD Active BACTRIM DS 800-160 MG ORAL TABLET 1 pill by mouth twice claudio y, for UTI SULFAMETHOXAZOLE-TRIMETHOPRIM 23387186594 No Longer Active Hope Benavidez MD PhD Active PROLIA 60 MG/ML SUBCUTANEOUS SOLUTION 1 shot every 6 months for osteoprosis DENOSUMAB 11835161758 Active Hope Benavidez MD PhD Active CALCIUM + D + K 750-500-40 MG-UNT-MCG ORAL TABLET 1 tab by m [facility] twice daily CALCIUM-VITAMIN D-VITAMIN K 31935814784 Active Hope valdez MD PhD Active DAILY VALUE MULTIVITAMIN ORAL TABLET 1 tab by mouth twice daily 201 05/16/14 MULTIPLE VITAMIN 68612952108 Active Hope Benavidez MD PhD Acti ve FISH OIL 306 MG CAPS 1 tab by mouth three times daily OMEGA-3 FATTY ACIDS 07475443299 Active Hope Benavidez MD PhD Active LUTEIN 10 MG ORAL TABLET 1 tab daily LUTEIN 36193151 408 Active Hope Benavidez MD PhD Active TRIAMTERENE-HCTZ 37.5-25 MG ORAL TABLET 1 tab by mouth daily 10/22 TRIAMTERENE-HCTZ 76260763072 Active Kylie Holt AMY Active CYCLOBENZAPRINE HCL 10 MG ORAL TABLET 1 tablet by [facility] three times daily as needed for headaches CYCLOBENZAPRINE HCL 81546007815 No Longer Active Adam Yates MD Active OMEPRAZOLE 20 MG ORAL CAPSULE DELAYED RELEASE 1 tablet by [facility] daily for GERD OMEPRAZOLE 86827643061 No Longer Active Adam Yates MD Active ZOFRAN 8 MG ORAL TABLET 1 tab by mouth every 12 hours prn 4 ONDANSETRON HCL 19990878009 No Longer Active Adam Yates MD Active PHENADOZ 25 MG RECTAL SUPPOSITORY 1 every 4 hrs. PRN 2 PROMETHAZINE HCL 00119517947 No Longer Active Adam Yates MD A ctive POTASSIUM CHLORIDE 20 MEQ ORAL PACKET by mouth twice a day prn 2 POTASSIUM CHLORIDE 70752584796 No Longer Active Adam Carpenter MD Active PROMETHAZINE HCL 25 MG ORAL TABLET 1 Q. 4 hr. PRN PROMETHAZINE HCL 53408472137 No Longer Active Adam Yates MD Active INNOPRAN XL 120 MG ORAL CAPSULE EXTENDED RELEASE 24 HO UR Take one by mouth daily PROPRANOLOL HCL SR BEADS 74260944535 No Longer Active Adam Yates MD Active FLAGYL 500 MG ORAL TABLET 1 pill by mouth three times daily, for diarrhea METRONIDAZOLE 07691196909 No Longer Active Hope landers MD PhD Active DYAZIDE 37.5-25 MG ORAL CAPSULE 1 qd TRIA MTERENE-HCTZ 80596419037 No Longer Active Hope Benavidez MD PhD Active PROZAC 20 MG ORAL CAPSULE 1 q d FLUOXETINE HCL 19231216503 No Longer Active Hope Benavidez MD PhD Active SIMVASTATIN 40 MG ORAL TABLET 1 qd SIMVAS TATIN 15307477755 No Longer Active Adam Yates MD Active MELOXICAM 15 MG ORAL TABLET 1 qd MELOXICAM 85789742086 No Longer Active Adam Yates MD Active EXCEDRIN EXTRA STRENGTH 250-250-65 MG ORAL TABLET 1-2 q6h OH N headache [id number] 95512008287 Active Hope Benavidez MD PhD Active FLAGYL 500 MG ORAL TABLET 1 qid METRONIDAZOL E 98877986930 No Longer Active Adam Yates MD Active LEVAQUIN 750 MG ORAL TABLET 1 qd LEVOFLOXAC IN 50249759509 No Longer Active Adam Yates MD Active ADULT ASPIRIN LOW STRENGTH 81 MG ORAL TABLET DISINTEGRATING 1 qd ASPIRIN 82663500131 Active Hope Benavidez MD PhD Active LEVAQUIN 750 MG ORAL TABLET 1 qd LEVAQUIN 750 MG ORAL TABLET 970689 LEVOFLOXACIN Inactive FLAGYL 500 MG ORAL TABLET 1 qid FLAGYL 500 MG ORAL TABLET 036058 METRONIDAZOLE Inactive MELOXICAM 15 MG ORAL TABLET 1 qd MELOXICAM 15 MG ORAL TABLET 693770 MELOXICAM Inactive SIMVASTATIN 40 MG ORAL TABLET 1 qd SIMVASTATIN 40 MG ORAL TABLET 417100 SIMVASTATIN Inactive PROZAC 20 MG ORAL CAPSULE 1 q d PROZAC 20 MG ORAL CAPSULE 446169 FLUOXETINE HCL Inactive DYAZIDE 37.5-25 MG ORAL CAPSULE 1 qd 5 DYAZIDE 37.5-25 MG ORAL CAPSULE 064451 TRIAMTERENE-HCTZ Inactive INNOPRAN XL 120 MG ORAL CAPSULE EXTENDED RELEASE 24 HO UR Take one by mouth daily INNOPRAN XL 120 MG ORAL CAPSULE EXTENDED RELEASE 24 HOUR PROPRANOLOL HCL SR BEADS Inactive PROMETHAZINE HCL 25 MG ORAL TABLET 1 Q. 4 hr. PRN 2013 PROMETHAZINE HCL 25 MG ORAL TABLET 523726 PROMETHAZINE HCL Inactive POTASSIUM CHLORIDE 20 MEQ ORAL PACKET by mouth twice a day prn 2 POTASSIUM CHLORIDE 20 MEQ ORAL PACKET 4152913 POTASSIUM CHLORIDE Inactive PHENADOZ 25 MG RECTAL SUPPOSITORY 1 every 4 hrs. PRN 2 PHENADOZ 25 MG RECTAL SUPPOSITORY 082760 PROMETHAZINE HCL Inactive ZOFRAN 8 MG ORAL TABLET 1 tab by mouth every 12 hours prn 4 ZOFRAN 8 MG ORAL TABLET 115171 ONDANSETRON HCL Inactive OMEPRAZOLE 20 MG ORAL CAPSULE DELAYED RELEASE 1 tablet by mo ut daily for GERD OMEPRAZOLE 20 MG ORAL CAPSULE DELAYED RELEASE 19 8051 OMEPRAZOLE Inactive CYCLOBENZAPRINE HCL 10 MG ORAL TABLET 1 tablet by mout h three times daily as needed for headaches CYCLOBENZAPRINE HCL 10 MG ORAL TABLET 461769 CYCLOBENZAPRINE HCL Inactive VITAMIN D3 4000 IU 1 tab 3 times daily VITAMIN D3 4000 IU Inactive PROPRANOLOL HCL 80 MG ORAL TABLET 1 tab tue. and thur. PROPRANOLOL HCL 80 MG ORAL TABLET 305433 PROPRANOLOL HCL Inacti ve CYANOCOBALAMIN 1000 MCG/ML INJECTION SOLUTION 1 injection ev ruben 2 weeks CYANOCOBALAMIN 1000 MCG/ML INJECTION SOLUTION 30 9594 CYANOCOBALAMIN Inactive MAGNESIUM GLUCONATE 250 MG ORAL TABLET 1 tab tid 23/10/23 MAGNESIUM GLUCONATE 250 MG ORAL TABLET 534484 MAGNESIUM GLUCONATE Inactive LOMOTIL 2.5-0.025 MG ORAL TABLET 1 tab by mouth prn 20 23/10/23 LOMOTIL 2.5-0.025 MG ORAL TABLET 2152860 DIPHENOXYLATE-ATROPINE Inac tive FLORANEX ORAL PACKET 1 pack three times daily, for bowel health FLORANEX ORAL PACKET 22869525097 LACTOBACILLUS Inactive IRON 325 (65 Fe) MG ORAL TABLET 1 every other day 2015 IRON 325 (65 Fe) MG ORAL TABLET 408425 FERROUS SULFATE Inactive FLAGYL 500 MG ORAL TABLET 1 pill by mouth three times daily, for diarrhea FLAGYL 500 MG ORAL TABLET 857517 METRONIDAZOLE I nactive BACTRIM DS 800-160 MG ORAL TABLET 1 pill by mouth twice claudio y, for UTI BACTRIM DS 800-160 MG ORAL TABLET 996917 SULFAMETHOXAZOLE-TRIMETHOPRIM Inactive Advance Directives Directive Description Start [...] - Chemistry calcium, serum 9.1 mg/dL 8.5-10.1 Lab Report: CBC W/DIFF - [...] MICROALB/CREAT W/RATIO, Lipid Pa ... - Chemistry LDL cholesterol, serum 126 mg/dL 0-130 TSH 1.19 m[iU]/mL 0.36-3.74 cholesterol, serum 211 mg/dL 270-896 8521/01/10 triglyceride, serum, fasting 77 mg/dL 30-200 HDL cholesterol, serum 70 mg/dL 32-60 sodium, serum 141 mmol/L 742-013 6714/01/10 potassium, serum 3.7 mmol/L 3.5-5.2 chloride, serum [...] 0.82 ng/dL 0.59-1.17 sodium, serum 142 mmol/L 255-134 2749/04/16 carbon dioxide, venous blood 30.0 mmol/L 21.0-32 [...] - Chelle radha sodium, serum 142 mmol/L 278-453 6434/11/02 potassium, serum 3.4 mmol/L 3.5-5.2 chloride, serum [...] 0.59-1.17 Encounters Code Encounter Date Provider Facility CPT-83297 [id number] Vst-Est Level III 09:15:19 [facility] Level 4 Est. Patient 15:35:24 FLIGHT CREW TIME CLERK Adam Yates MD [facility] CPT-17568 Level 3 New Patient 12:08:54 FLIGHT CREW TIME CLERK Adam Yates MD [facility] CPT-99266 [id number] Vst-Est Level IV 19:48:30 FLIGHT CREW TIME CLERK Tracy Holt [facility] CPT-14933 [id number] Vst-Est Level III 14:29:19 CDT Fiorella Holt [facility] CPT-49000 Level 2 Est. Patient 14:58:26 CDT Kylie boyd [facility] CPT-10396 Level 3 Est. Patient 08:15:24 FLIGHT CREW TIME CLERK Kylie boyd [facility] CPT-40892 Level 2 Est. Patient 14:27:16 FLIGHT CREW TIME CLERK Kylie boyd [facility] CPT-55699 Level 3 Est. Patient 17:54:48 CDT Kylie boyd [facility] CPT-73379 Level 3 Est. Patient 16:26:30 CDT Kina blackmon [facility] CPT-85301 Level 3 New Patient 16:22:01 FLIGHT CREW TIME CLERK Adam Yates MD [facility] CPT-35808 Level 4 Est. Patient 17:00:48 CDT Kylie Lund [facility] CPT-33206 Level 3 Est. Patient 13:15:54 CDT Kylie Lund [facility] CPT-67027 Level 3 Est. Patient 09:10:11 CDT Kylie Lund [facility] CPT-15496 Level 4 Est. Patient 12:08:30 FLIGHT CREW TIME CLERK Hope cohn MD [facility] CPT-41249 Level 4 Est. Patient 19:08:42 FLIGHT CREW TIME CLERK Hope cohn MD [facility] CPT-55463 Level 4 Est. Patient 20:04:51 CDT Hope cohn MD PhD [facility] CPT-95994 Level 3 New Patient 01:46:11 FLIGHT CREW TIME CLERK Hope landers MD PhD [facility] Procedures Code Procedure Name Date Entry Date Standard Desc ription CPT-G0439 [facility] Annual Wellness Exam 09:15:19 CDT CPT-31351 Postop F/U Visit 15:45:41 CDT CPT-58613 Sono Soft Tissue Head and Neck - XRAY US E ONLY 11:56:06 FLIGHT CREW TIME CLERK CPT-41949 Abx/Therapy Injection 09:40:08 FLIGHT CREW TIME CLERK CPT-J0897 Prolia 60 mg 09:40:08 FLIGHT CREW TIME CLERK CPT-94619 First Vx - Ix admin for Medicare patients 02/08 10:02:45 CDT CPT-70952 Fluzone Quadrivalent Intramuscular Suspe nsion 0.5 ML 10:02:45 CDT CPT-22525 Magnesium - LAB USE ONLY 09:41:00 CDT 12/09 CPT-23389 Renal Panel - LAB USE ONLY 09:41:00 CDT 201 09/17/01 CPT-32562 Venipuncture Draw Fee 09:41:00 CDT CPT-96928 Calcium - LAB USE ONLY 17:25:11 CDT CPT-J0897 Prolia 60 mg 15:10:59 CDT CPT-13112 Abx/Therapy Injection 15:10:59 CDT CPT-G0439 Subsequent Annual Wellness Exam 14:29:19 CDT CPT-77842 Venipuncture Draw Fee 10:59:04 CDT CPT-61596 CMP - LAB USE ONLY 10:59:04 CDT CPT-66089 CBC with Diff - LAB USE ONLY 10:59:03 CDT 2 CPT-J0897 Prolia 60 mg 15:46:54 FLIGHT CREW TIME CLERK CPT-76104 Abx/Therapy Injection 15:46:54 FLIGHT CREW TIME CLERK CPT-12347 Microalbumin - LAB USE ONLY 09:41:32 FLIGHT CREW TIME CLERK 20 23/01/15 CPT-99393 Free T4 - LAB USE ONLY 09:41:32 FLIGHT CREW TIME CLERK CPT-32402 TSH - LAB USE ONLY 09:41:32 FLIGHT CREW TIME CLERK CPT-48406 BMP - LAB USE ONLY 09:41:32 FLIGHT CREW TIME CLERK CPT-59145 Venipuncture Draw Fee 09:41:32 FLIGHT CREW TIME CLERK CPT-70578 First Vx - Ix admin for Medicare patients 11:19:30 CDT CPT-45371 Fluzone High-Dose Intramuscular Suspension 12/07 11:19:30 CDT CPT-J0897 Prolia 60 mg 14:55:42 CDT CPT-67142 Abx/Therapy Injection 14:55:42 CDT CPT-18430 Bone Density - XRAY USE ONLY 10:27:12 CDT 2 CPT-G0439 [facility] Subsequent Annual Wellness Exam 17:54:53 CDT CPT-61196 Foot, left, comp min 3V - XRAY USE ONLY 12:22:49 CDT CPT-G0009 Administration of Pneumococcal Vaccine 3 12:18:00 CDT CPT-33003 Pneumovax 23 Injection Injectable 25 MCG /0.5ML 12:18:00 CDT CPT-J0897 Prolia 60 mg 14:14:16 FLIGHT CREW TIME CLERK CPT-67340 Abx/Therapy Injection 14:14:15 FLIGHT CREW TIME CLERK CPT-67834 Lipid - LAB USE ONLY 10:01:52 FLIGHT CREW TIME CLERK 2 CPT-68454 Calcium - LAB USE ONLY 10:01:51 FLIGHT CREW TIME CLERK CPT-07864 Venipuncture Draw Fee 10:01:51 FLIGHT CREW TIME CLERK CPT-LR Lesion Removal 16:22:01 FLIGHT CREW TIME CLERK CPT-90447 TSH - LAB USE ONLY 14:26:02 CDT CPT-73556 CMP - LAB USE ONLY 14:26:01 CDT CPT-21338 CBC with Diff - LAB USE ONLY 14:26:01 CDT 2 CPT-09416 Venipuncture Draw Fee 14:26:01 CDT CPT-80525 First Vx - Ix admin for Medicare patients 13:27:08 CDT CPT-32143 Fluzone High-Dose Intramuscular Suspension 11/26 13:27:08 CDT CPT-G0438 Initial Annual Wellness Exam 14:19:57 CD T CPT-G0009 Administration of Pneumococcal Vaccine 9 11:36:25 CDT CPT-59875 Prevnar 13 Intramuscular Suspension 1 1:36:25 CDT CPT-00348 Prevnar 13 Intramuscular Suspension 1 0:40:58 CDT CPT-J0897 Prolia 60 mg 10:37:16 CDT CPT-44723 Abx/Therapy Injection 10:37:16 CDT CPT-J0897 Prolia 60 mg 16:09:34 FLIGHT CREW TIME CLERK CPT-J0897 Prolia 60 mg 11:10:35 FLIGHT CREW TIME CLERK CPT-40759 Abx/Therapy Injection 11:10:35 FLIGHT CREW TIME CLERK CPT-000 Give Appropriate Flu Vaccine 17:01:15 FLIGHT CREW TIME CLERK 2 CPT-77319 Fluzone High Dose (65+) 15:03:08 FLIGHT CREW TIME CLERK 02/15 CPT-26804 Immunization Single Admin 15:03:08 FLIGHT CREW TIME CLERK 2014 CPT-OV Office Visit 15:58:06 CDT CPT-J0897 Prolia 60 mg 08:45:38 CDT CPT-24243 Abx/Therapy Injection 08:45:38 CDT CPT-J3420 Vitamin B12 1000mcg (Cyanocobalamin) 09:26:20 FLIGHT CREW TIME CLERK CPT-39979 Abx/Therapy Injection 09:26:20 FLIGHT CREW TIME CLERK CPT-J3420 Vitamin B12 1000mcg (Cyanocobalamin) 09:44:40 FLIGHT CREW TIME CLERK CPT-22070 Abx/Therapy Injection 09:44:40 FLIGHT CREW TIME CLERK CPT-J3420 Vitamin B12 1000mcg (Cyanocobalamin) 09:15:54 FLIGHT CREW TIME CLERK CPT-44566 Abx/Therapy Injection 09:15:54 FLIGHT CREW TIME CLERK CPT-J3420 Vitamin B12 1000mcg (Cyanocobalamin) 09:46:44 FLIGHT CREW TIME CLERK CPT-82273 Abx/Therapy Injection 09:46:44 FLIGHT CREW TIME CLERK CPT-J3420 Vitamin B12 1000mcg (Cyanocobalamin) 09:47:34 FLIGHT CREW TIME CLERK CPT-21796 Abx/Therapy Injection 09:47:34 FLIGHT CREW TIME CLERK CPT-J3420 Vitamin B12 1000mcg (Cyanocobalamin) 14:35:50 FLIGHT CREW TIME CLERK CPT-J3420 Vitamin B12 1000mcg (Cyanocobalamin) 09:25:05 FLIGHT CREW TIME CLERK CPT-83951 Abx/Therapy Injection 09:25:05 FLIGHT CREW TIME CLERK CPT-G0008 Administration of Influenza Virus Vaccine 13:36:47 CDT CPT-90286 Fluzone High-Dose Intramuscular Suspension 11/15 13:36:47 CDT CPT-J0897 Prolia 60 mg 08:50:41 CDT CPT-33219 Abx/Therapy Injection 08:50:41 CDT CPT-25638 Bone Density 12:06:12 CDT CPT-36569 Bone Density 08:54:40 CDT CPT-OV Office Visit 15:37:02 CDT CPT-33871 Postop F/U Visit 15:47:49 CDT CPT-53409 Postop F/U Visit 15:21:02 CDT CPT-TCMH Transitional Care Mgmt-High 07:52:27 CDT 20 20/06/01 CPT-07964 Venipuncture Draw Fee 13:51:18 CDT CPT-24557 Venipuncture Draw Fee 10:14:55 FLIGHT CREW TIME CLERK CPT-52733 Venipuncture Draw Fee 13:39:45 FLIGHT CREW TIME CLERK CPT-OV Office Visit 15:11:22 FLIGHT CREW TIME CLERK CPT-60742 Venipuncture Draw Fee 09:20:49 FLIGHT CREW TIME CLERK CPT-82021 Venipuncture Draw Fee 16:52:15 FLIGHT CREW TIME CLERK CPT-59577 Venipuncture Draw Fee 10:37:24 FLIGHT CREW TIME CLERK CPT-49990 Venipuncture Draw Fee 08:21:21 FLIGHT CREW TIME CLERK CPT-46170 Venipuncture Draw Fee 08:30:20 FLIGHT CREW TIME CLERK CPT-54129 Venipuncture Draw Fee 14:53:21 FLIGHT CREW TIME CLERK CPT-85715 Venipuncture Draw Fee 09:40:56 FLIGHT CREW TIME CLERK CPT-36180 Venipuncture Draw Fee 10:30:47 FLIGHT CREW TIME CLERK CPT-05765 Venipuncture Draw Fee 10:46:17 FLIGHT CREW TIME CLERK CPT-42790 Venipuncture Draw Fee 11:12:45 FLIGHT CREW TIME CLERK CPT-41996 Venipuncture Draw Fee 09:53:33 FLIGHT CREW TIME CLERK CPT-16802 Venipuncture Draw Fee 11:53:51 FLIGHT CREW TIME CLERK CPT-55148 Venipuncture Draw Fee 10:33:50 FLIGHT CREW TIME CLERK CPT-82123 Venipuncture Draw Fee 10:05:01 FLIGHT CREW TIME CLERK CPT-83453 Venipuncture Draw Fee 14:32:52 FLIGHT CREW TIME CLERK CPT-08015 Venipuncture Draw Fee 09:46:13 FLIGHT CREW TIME CLERK CPT-01315 Venipuncture Draw Fee 11:34:27 FLIGHT CREW TIME CLERK CPT-44446 Venipuncture Draw Fee 13:17:16 FLIGHT CREW TIME CLERK CPT-23268 Venipuncture Draw Fee 12:05:39 CDT CPT-11280 Venipuncture Draw Fee 12:49:12 CDT CPT-31476 Venipuncture Draw Fee 12:37:18 CDT CPT-41591 Venipuncture Draw Fee 10:57:11 CDT CPT-59327 Venipuncture Draw Fee 13:47:40 CDT CPT-43641 Venipuncture Draw Fee 10:02:17 CDT CPT-57080 TB Tubersol 17:32:32 CDT CPT-OV Office Visit 16:21:53 CDT CPT-OV Office Visit 15:49:22 CDT CPT-OV Office Visit 17:16:31 CDT CPT-OV Office Visit 10:43:31 CDT
--- OUTSIDE RECORDS SUMMARY | 2019-02-09 11:47 | XMS REPORT | Clinical Summary ---
Author Author Renaldo, Florecita Munoz Organization [facility] [employer] Address Unknown Phone Unavailable Allergies, Adverse Reactions, [...] PhD Hyperpotassemia GERD 530.81 Resolved Kylie Yokum GENERAL LEDGER ACCOUNTANT Esophageal reflux Health maintenance exam V70.0 Resolved Adolfo Yates MD Routine general medical examination at a health care facility Anemia 285.9 Resolved Kylie Holt GENERAL LEDGER ACCOUNTANT Anemia, unspecified Personal history of malignant neoplasm of large intestine V10.05 Active Adam Yates MD Personal history of malignant neoplasm of large intestine Hypomagnesemia 275.2 Resolved Kylie Holt GENERAL LEDGER ACCOUNTANT Disorders of magnesium metabolism Weakness 780.79 Resolved [...] status (age-related) (natural) V49.8 1 Inactive Hope eBnavidez MD PhD Asymptomatic postmenopausal status (age-related) (natural) [...] Sebaceous cyst, scalp 706.2 Resolved Kylie Yokum GENERAL LEDGER ACCOUNTANT Sebaceous cyst Cervical lymphadenopathy, anterior, left 785.6 Resolv ed Kylie Yokum GENERAL LEDGER ACCOUNTANT Enlargement of lymph nodes Need for prophylactic vaccination and inoculation against in fluenza V04.81 Resolved Adam Yates MD Need for prophylactic vaccination and inoculation against influenza Preventive health care V70.0 Resolved Kylie Lundu m GENERAL LEDGER ACCOUNTANT Routine general medical examination at a health care facility Thyroid nodule, left 241.0 Resolved Selena Yates MD Nontoxic uninodular goiter Screening mammogram V76.12 Resolved Kylie Yokum A PRN Other screening mammogram Mandy 706.2 Resolved Kylie Yokum GENERAL LEDGER ACCOUNTANT Sebaceous cyst Colon cancer, ascending 153.6 Resolved Kylie Yok um GENERAL LEDGER ACCOUNTANT Malignant neoplasm of ascending colon Foot pain, left 729.5 Resolved Kylie Yokum GENERAL LEDGER ACCOUNTANT Pain in limb Splinter 919.6 Resolved Kylie Yokum GENERAL LEDGER ACCOUNTANT Superficial foreign body (splinter) of other, multiple, and unspecified sites, without major open wound and without mention of infection Rash 782.1 Resolved Kylie Yokum GENERAL LEDGER ACCOUNTANT Rash and other nonspecific skin eruption Cyst 706.2 Resolved Kylie Yokum GENERAL LEDGER ACCOUNTANT Sebaceous cyst Body Mass Index 23.0-23.9 Adult Refinement 2017 Kylie Yokum GENERAL LEDGER ACCOUNTANT Body Mass Index between 19-24, adult BMI [...] RIGHT LOWER QUADRANT ICD-789.03 Inactive Kina Joshua GENERAL LEDGER ACCOUNTANT ADENOCARCINOMA, COLON, 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 Dick Yates MD ABDOMINAL PAIN, GENERALIZED ICD-789.07 Inactive Hope Benavidez MD PhD FEVER UNSPECIFIED ICD-780.60 Inactive Hope cohn MD PhD UNSPECIFIED VENOUS INSUFFICIENCY ICD-459.81 Elda ctive Adam Yates MD ADENOCARCINOMA, 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 Inac tive Hope Benavidez MD PhD Hyperkalemia ICD-276.7 Inactive Hope Benavidez MD PhD GERD ICD-530.81 Inactive Kylie Yanet GENERAL LEDGER ACCOUNTANT 2015 Health maintenance exam ICD-V70.0 Bam Yates MD Anemia ICD-285.9 Inactive Kylie Yanet GENERAL LEDGER ACCOUNTANT 07/24 Hypomagnesemia ICD-275.2 Inactive Kylie Holt GENERAL LEDGER ACCOUNTANT Weakness ICD-780.79 Inactive Hope Benavidez MD P [...] cyst, scalp ICD-706.2 Inactive Tracy hi Yokum GENERAL LEDGER ACCOUNTANT Cervical lymphadenopathy, anterior, left ICD-785.6 Inactive Kylie Yokum GENERAL LEDGER ACCOUNTANT Need for prophylactic vaccination and inoculation against in fluenza ICD-V04.81 Inactive Adam Yates MD Preventive health care ICD-V70.0 Inactive Ka thi Yokum GENERAL LEDGER ACCOUNTANT Thyroid nodule, left ICD-241.0 Inactive Selena Yates MD Screening mammogram ICD-V76.12 Inactive Kylie Yokum GENERAL LEDGER ACCOUNTANT Mandy ICD-706.2 Inactive Kylie Yokum GENERAL LEDGER ACCOUNTANT 07/20 Colon cancer, ascending ICD-153.6 Inactive K athi Yokum GENERAL LEDGER ACCOUNTANT Foot pain, left ICD-729.5 Inactive Kylie Yokum GENERAL LEDGER ACCOUNTANT Splinter ICD-919.6 Inactive Kylie Yokum GENERAL LEDGER ACCOUNTANT 2017 Rash ICD-782.1 Inactive Kylie Yokum GENERAL LEDGER ACCOUNTANT 07/25 Cyst ICD-706.2 Inactive Kylie Yokum GENERAL LEDGER ACCOUNTANT 08/11 Unspecified fall, initial encounter ICD-E888.9 Inactive Kylie Yokum GENERAL LEDGER ACCOUNTANT Eye pain, left ICD-379.91 Inactive Kylie Holt [...] MCG ORAL TABLET 1 daily LEVOTHYROXINE SODIUM 83018107404 Active Kylie Holt APRN Active VOLTAREN 1 % TRANSDERMAL GEL apply 2 grams q 6-8 hour to left arm as needed for pain DICLOFENAC SODIUM 96989478806 Active Kylie Marrero Active IMODIUM A-D 2 MG ORAL TABLET 1 tablet twice a day LOPERAMIDE HCL 63984523830 Active Kylie Holt APRN Active COQ10 100 MG ORAL CAPSULE 1 daily COENZYME Q10 092070 51504 Active LETY Nation Active VITAMIN D3 2000 UNIT ORAL CAPSULE Melaleuca-One daily CHOLECALCIFEROL 77041503550 Active Kylie Holt APRN Active PROBIOTIC DAILY ORAL CAPSULE Take one daily PROBIO TIC PRODUCT 80281763806 Active Kylie Holt APRN Active IRON 325 (65 Fe) MG ORAL TABLET 1 every other day FERROUS SULFATE 26070172460 No Longer Active Kylie Holt APRN Active FLORANEX ORAL PACKET 1 pack three times daily, for bowel health LACTOBACILLUS 74475394950 No Longer Active Kylie Holt APRN Active LOMOTIL 2.5-0.025 MG ORAL TABLET 1 tab by mouth prn 20 23/10/23 DIPHENOXYLATE-ATROPINE 89824195755 No Longer Active Kylie Lundum GENERAL LEDGER ACCOUNTANT Active MAGNESIUM GLUCONATE 250 MG ORAL TABLET 1 tab tid 20 23/10/23 MAGNESIUM GLUCONATE 67228418446 No Longer Active Kylie Polakum GENERAL LEDGER ACCOUNTANT Active CYANOCOBALAMIN 1000 MCG/ML INJECTION SOLUTION 1 injection ev ruben 2 weeks CYANOCOBALAMIN 36974358522 No Longer Active Kylie Lund um GENERAL LEDGER ACCOUNTANT Active ATENOLOL 25 MG ORAL TABLET 1/2 pill by mouth daily, fo r headaches, blood pressure ATENOLOL 60767224367 Active Kylie Lundum GENERAL LEDGER ACCOUNTANT Active PROPRANOLOL HCL 80 MG ORAL TABLET 1 tab tue. and thur. PROPRANOLOL HCL 52090881628 No Longer Active Hope Benavidez MD PhD A ctive VITAMIN D3 4000 IU 1 tab 3 times daily VITAMIN D3 4000 IU No Longer Active Hope Benavidez MD PhD Active BACTRIM DS 800-160 MG ORAL TABLET 1 pill by mouth twice claudio y, for UTI SULFAMETHOXAZOLE-TRIMETHOPRIM 46234840267 No Longer Active Hope Benavidez MD PhD Active PROLIA 60 MG/ML SUBCUTANEOUS SOLUTION 1 shot every 6 months for osteoprosis DENOSUMAB 89274087716 Active Hope Benavidez MD PhD Active CALCIUM + D + K 750-500-40 MG-UNT-MCG ORAL TABLET 1 tab by [facility] twice daily CALCIUM-VITAMIN D-VITAMIN K 27253051820 Active Hope valdez MD PhD Active DAILY VALUE MULTIVITAMIN ORAL TABLET 1 tab by mouth twice daily 201 05/16/14 MULTIPLE VITAMIN 51358761014 Active Hpoe Benavidez MD PhD Acti ve FISH OIL 306 MG CAPS 1 tab by mouth three times daily OMEGA-3 FATTY ACIDS 73504307359 Active Hope Benavidez MD PhD Active LUTEIN 10 MG ORAL TABLET 1 tab daily LUTEIN 35792943 408 Active Hope Benavidez MD PhD Active TRIAMTERENE-HCTZ 37.5-25 MG ORAL TABLET 1 tab by mouth daily 10/22 TRIAMTERENE-HCTZ 08738127698 Active Kylie Holt AMY Active CYCLOBENZAPRINE HCL 10 MG ORAL TABLET [facility] three times daily as needed for headaches CYCLOBENZAPRINE HCL 82492742018 No Longer Active Adam Yates MD Active OMEPRAZOLE 20 MG ORAL CAPSULE DELAYED RELEASE 1 tablet by [facility] daily for GERD OMEPRAZOLE 39314137218 No Longer Active Adam Yates MD Active ZOFRAN 8 MG ORAL TABLET 1 tab by mouth every 12 hours prn 4 ONDANSETRON HCL 14591368342 No Longer Active Adam Yates MD Active PHENADOZ 25 MG RECTAL SUPPOSITORY 1 every 4 hrs. PRN 2 PROMETHAZINE HCL 89048720256 No Longer Active Adam Yates MD A ctive POTASSIUM CHLORIDE 20 MEQ ORAL PACKET by mouth twice a day prn 2 POTASSIUM CHLORIDE 41697680283 No Longer Active Adam Carpenter MD Active PROMETHAZINE HCL 25 MG ORAL TABLET 1 Q. 4 hr. PRN PROMETHAZINE HCL 11923103861 No Longer Active Adam Yates MD Active INNOPRAN XL 120 MG ORAL CAPSULE EXTENDED RELEASE 24 HO UR Take one by mouth daily PROPRANOLOL HCL SR BEADS 68851908761 No Longer Active Adam Yates MD Active FLAGYL 500 MG ORAL TABLET 1 pill by mouth three times daily, for diarrhea METRONIDAZOLE 95451085122 No Longer Active Hope landers MD PhD Active DYAZIDE 37.5-25 MG ORAL CAPSULE 1 qd TRIA MTERENE-HCTZ 41628684583 No Longer Active Hope Benavidez MD PhD Active PROZAC 20 MG ORAL CAPSULE 1 q d FLUOXETINE HCL 74462024690 No Longer Active Hope Benavidez MD PhD Active SIMVASTATIN 40 MG ORAL TABLET 1 qd SIMVAS TATIN 54770146904 No Longer Active Adam Yates MD Active MELOXICAM 15 MG ORAL TABLET 1 qd MELOXICAM 84639237282 No Longer Active Adam Yates MD Active EXCEDRIN EXTRA STRENGTH 250-250-65 MG ORAL TABLET 1-2 q6h VA N headache [id number] 10187354953 Active Hope Benavidez MD PhD Active FLAGYL 500 MG ORAL TABLET 1 qid METRONIDAZOL E 70587777286 No Longer Active Adam Yates MD Active LEVAQUIN 750 MG ORAL TABLET 1 qd LEVOFLOXAC IN 84633691764 No Longer Active Adam Yates MD Active ADULT ASPIRIN LOW STRENGTH 81 MG ORAL TABLET DISINTEGRATING 1 qd ASPIRIN 07918764654 Active Hope Benavidez MD PhD Active LEVAQUIN 750 MG ORAL TABLET 1 qd LEVAQUIN 750 MG ORAL TABLET 619102 LEVOFLOXACIN Inactive FLAGYL 500 MG ORAL TABLET 1 qid FLAGYL 500 MG ORAL TABLET 907133 METRONIDAZOLE Inactive MELOXICAM 15 MG ORAL TABLET 1 qd MELOXICAM 15 MG ORAL TABLET 707053 MELOXICAM Inactive SIMVASTATIN 40 MG ORAL TABLET 1 qd SIMVASTATIN 40 MG ORAL TABLET 037368 SIMVASTATIN Inactive PROZAC 20 MG ORAL CAPSULE 1 q d PROZAC 20 MG ORAL CAPSULE 669914 FLUOXETINE HCL Inactive DYAZIDE 37.5-25 MG ORAL CAPSULE 1 qd 5 DYAZIDE 37.5-25 MG ORAL CAPSULE 405556 TRIAMTERENE-HCTZ Inactive INNOPRAN XL 120 MG ORAL CAPSULE EXTENDED RELEASE 24 HO UR Take one by mouth daily INNOPRAN XL 120 MG ORAL CAPSULE EXTENDED RELEASE 24 HOUR PROPRANOLOL HCL SR BEADS Inactive PROMETHAZINE HCL 25 MG ORAL TABLET 1 Q. 4 hr. PRN 2013 PROMETHAZINE HCL 25 MG ORAL TABLET 352606 PROMETHAZINE HCL Inactive POTASSIUM CHLORIDE 20 MEQ ORAL PACKET by mouth twice a day prn 2 POTASSIUM CHLORIDE 20 MEQ ORAL PACKET 2845909 POTASSIUM CHLORIDE Inactive PHENADOZ 25 MG RECTAL SUPPOSITORY 1 every 4 hrs. PRN 2 PHENADOZ 25 MG RECTAL SUPPOSITORY 786913 PROMETHAZINE HCL Inactive ZOFRAN 8 MG ORAL TABLET 1 tab by mouth every 12 hours prn 4 ZOFRAN 8 MG ORAL TABLET 046857 ONDANSETRON HCL Inactive OMEPRAZOLE 20 MG ORAL CAPSULE DELAYED RELEASE 1 tablet by mo ut daily for GERD OMEPRAZOLE 20 MG ORAL CAPSULE DELAYED RELEASE 19 8051 OMEPRAZOLE Inactive CYCLOBENZAPRINE HCL 10 MG ORAL TABLET 1 tablet by mout h three times daily as needed for headaches CYCLOBENZAPRINE HCL 10 MG ORAL TABLET 671073 CYCLOBENZAPRINE HCL Inactive VITAMIN D3 4000 IU 1 tab 3 times daily VITAMIN D3 4000 IU Inactive PROPRANOLOL HCL 80 MG ORAL TABLET 1 tab tue. and thur. PROPRANOLOL HCL 80 MG ORAL TABLET 260274 PROPRANOLOL HCL Inacti ve CYANOCOBALAMIN 1000 MCG/ML INJECTION SOLUTION 1 injection ev ruben 2 weeks CYANOCOBALAMIN 1000 MCG/ML INJECTION SOLUTION 30 9594 CYANOCOBALAMIN Inactive MAGNESIUM GLUCONATE 250 MG ORAL TABLET 1 tab tid 23/10/23 MAGNESIUM GLUCONATE 250 MG ORAL TABLET 198218 MAGNESIUM GLUCONATE Inactive LOMOTIL 2.5-0.025 MG ORAL TABLET 1 tab by mouth prn 20 23/10/23 LOMOTIL 2.5-0.025 MG ORAL TABLET 8558208 DIPHENOXYLATE-ATROPINE Inac tive FLORANEX ORAL PACKET 1 pack three times daily, for bowel health FLORANEX ORAL PACKET 02971843354 LACTOBACILLUS Inactive IRON 325 (65 Fe) MG ORAL TABLET 1 every other day 2015 IRON 325 (65 Fe) MG ORAL TABLET 388416 FERROUS SULFATE Inactive FLAGYL 500 MG ORAL TABLET 1 pill by mouth three times daily, for diarrhea FLAGYL 500 MG ORAL TABLET 866301 METRONIDAZOLE I nactive BACTRIM DS 800-160 MG ORAL TABLET 1 pill by mouth twice claudio y, for UTI BACTRIM DS 800-160 MG ORAL TABLET 812851 SULFAMETHOXAZOLE-TRIMETHOPRIM Inactive Advance Directives Directive Description Start [...] ... - Chemistry sodium, serum 141 mmol/L 882-215 5685/01/10 potassium, serum 3.7 mmol/L 3.5-5.2 chloride, serum 101 mmol/L 98-107 carbon dioxide, venous blood 31.0 mmol/L 21.0-32 .0 blood glucose 96 mg/dL 65-95 calcium, serum 9.5 mg/dL 8.5-10.1 urea nitrogen, blood 21 mg/dL 7-18 creatinine, serum 1.40 mg/dL 0.60-1.30 Estimated Glomerular Filtration Rate (calc) 39 (?) mL/min/1.73m2 = OR > 60 mL/min cholesterol, serum 211 mg/dL 103-159 8923/01/10 triglyceride, serum, fasting 77 mg/dL 30-200 HDL [...] 0.82 ng/dL 0.59-1.17 sodium, serum 142 mmol/L 488-593 9580/04/16 carbon dioxide, venous blood 30.0 mmol/L 21.0-32 [...] - Chelle radha sodium, serum 142 mmol/L 511-484 7423/11/02 potassium, serum 3.4 mmol/L 3.5-5.2 chloride, serum [...] 0.59-1.17 Encounters Code Encounter Date Provider Facility CPT-06096 [id number] Vst-Est Level III 09:15:19 [facility] [place] [facility] Level 4 Est. Patient 15:35:24 VAMP PRESSER Adam Yates MD [facility] CPT-21255 Level 3 New Patient 12:08:54 VAMP PRESSER Adam Yates MD [facility] CPT-51760 [id number] Vst-Est Level IV 19:48:30 VAMP PRESSER Tracy Holt [facility] [place] CPT-64455 [id number] Vst-Est Level III 14:29:19 CDT Fiorella Holt [facility] [place] CPT-92866 Level 2 Est. Patient 14:58:26 CDT Kylie boyd [facility] [place] CPT-10205 Level 3 Est. Patient 08:15:24 VAMP PRESSER Kylie boyd [facility] [place] CPT-81041 Level 2 Est. Patient 14:27:16 VAMP PRESSER Kylie boyd [facility] [place][note 2] CPT-47426 Level 3 Est. Patient 17:54:48 CDT Kylie boyd [facility] [place][note 2] CPT-05057 Level 3 Est. Patient 16:26:30 CDT Kina blackmon [facility] CPT-48112 Level 3 New Patient 16:22:01 VAMP PRESSER Adam Yates MD [facility] CPT-50918 Level 4 Est. Patient 17:00:48 CDT Kylie Lund [facility] CPT-22478 Level 3 Est. Patient 13:15:54 CDT Kylie Lund [facility] CPT-08980 Level 3 Est. Patient 09:10:11 CDT Kylie Lund [facility] CPT-83587 Level 4 Est. Patient 12:08:30 VAMP PRESSER Hope cohn MD [facility] CPT-35420 Level 4 Est. Patient 19:08:42 VAMP PRESSER Hope cohn MD [facility] CPT-44195 Level 4 Est. Patient 20:04:51 CDT Hope cohn MD PhD [facility] CPT-83687 Level 3 New Patient 01:46:11 VAMP PRESSER Hope landers MD PhD [facility] Procedures Code Procedure Name Date Entry Date Standard Desc ription CPT-82689 Venipuncture Draw Fee 13:34:11 CDT CPT-G0439 [facility] Annual Wellness Exam 09:15:19 CDT CPT-08747 Postop F/U Visit 15:45:41 CDT CPT-78114 Sono Soft Tissue Head and Neck - XRAY US E ONLY 11:56:06 VAMP PRESSER CPT-02328 Abx/Therapy Injection 09:40:08 VAMP PRESSER CPT-J0897 Prolia 60 mg 09:40:08 VAMP PRESSER CPT-66580 First Vx - Ix admin for Medicare patients 02/08 10:02:45 CDT CPT-63282 Fluzone Quadrivalent Intramuscular Suspe nsion 0.5 ML 10:02:45 CDT CPT-43490 Magnesium - LAB USE ONLY 09:41:00 CDT 12/09 CPT-09743 Renal Panel - LAB USE ONLY 09:41:00 CDT 201 09/17/01 CPT-02055 Venipuncture Draw Fee 09:41:00 CDT CPT-15921 Calcium - LAB USE ONLY 17:25:11 CDT CPT-J0897 Prolia 60 mg 15:10:59 CDT CPT-64123 Abx/Therapy Injection 15:10:59 CDT CPT-G0439 [facility] Annual Wellness Exam 14:29:19 CDT CPT-59274 Venipuncture Draw Fee 10:59:04 CDT CPT-08244 CMP - LAB USE ONLY 10:59:04 CDT CPT-03861 CBC with Diff - LAB USE ONLY 10:59:03 CDT 2 CPT-J0897 Prolia 60 mg 15:46:54 VAMP PRESSER CPT-51938 Abx/Therapy Injection 15:46:54 VAMP PRESSER CPT-18428 Microalbumin - LAB USE ONLY 09:41:32 VAMP PRESSER 20 23/01/15 CPT-52467 Free T4 - LAB USE ONLY 09:41:32 VAMP PRESSER CPT-72377 TSH - LAB USE ONLY 09:41:32 VAMP PRESSER CPT-15276 BMP - LAB USE ONLY 09:41:32 VAMP PRESSER CPT-32212 Venipuncture Draw Fee 09:41:32 VAMP PRESSER CPT-20593 First Vx - Ix admin for Medicare patients 11:19:30 CDT CPT-24065 Fluzone High-Dose Intramuscular Suspension 12/07 11:19:30 CDT CPT-J0897 Prolia 60 mg 14:55:42 CDT CPT-89090 Abx/Therapy Injection 14:55:42 CDT CPT-71163 Bone Density - XRAY USE ONLY 10:27:12 CDT 2 CPT-G0439 Subsequent Annual Wellness Exam 17:54:53 CDT CPT-81493 Foot, left, comp min 3V - XRAY USE ONLY 12:22:49 CDT CPT-G0009 Administration of Pneumococcal Vaccine 3 12:18:00 CDT CPT-71292 Pneumovax 23 Injection Injectable 25 MCG /0.5ML 12:18:00 CDT CPT-J0897 Prolia 60 mg 14:14:16 VAMP PRESSER CPT-60734 Abx/Therapy Injection 14:14:15 VAMP PRESSER CPT-40397 Lipid - LAB USE ONLY 10:01:52 VAMP PRESSER 2 CPT-93605 Calcium - LAB USE ONLY 10:01:51 VAMP PRESSER CPT-42685 Venipuncture Draw Fee 10:01:51 VAMP PRESSER CPT-LR Lesion Removal 16:22:01 VAMP PRESSER CPT-33960 TSH - LAB USE ONLY 14:26:02 CDT CPT-15282 CMP - LAB USE ONLY 14:26:01 CDT CPT-86124 CBC with Diff - LAB USE ONLY 14:26:01 CDT 2 CPT-70200 Venipuncture Draw Fee 14:26:01 CDT CPT-03113 First Vx - Ix admin for Medicare patients 13:27:08 CDT CPT-05016 Fluzone High-Dose Intramuscular Suspension 11/26 13:27:08 CDT CPT-G0438 Initial Annual Wellness Exam 14:19:57 CD T CPT-G0009 Administration of Pneumococcal Vaccine 9 11:36:25 CDT CPT-53491 Prevnar 13 Intramuscular Suspension 1 1:36:25 CDT CPT-25145 Prevnar 13 Intramuscular Suspension 1 0:40:58 CDT CPT-J0897 Prolia 60 mg 10:37:16 CDT CPT-34525 Abx/Therapy Injection 10:37:16 CDT CPT-J0897 Prolia 60 mg 16:09:34 VAMP PRESSER CPT-J0897 Prolia 60 mg 11:10:35 VAMP PRESSER CPT-09395 Abx/Therapy Injection 11:10:35 VAMP PRESSER CPT-000 Give Appropriate Flu Vaccine 17:01:15 VAMP PRESSER 2 CPT-02487 Fluzone High Dose (65+) 15:03:08 VAMP PRESSER 02/15 CPT-74847 Immunization Single Admin 15:03:08 VAMP PRESSER 2014 CPT-OV Office Visit 15:58:06 CDT CPT-J0897 Prolia 60 mg 08:45:38 CDT CPT-58112 Abx/Therapy Injection 08:45:38 CDT CPT-J3420 Vitamin B12 1000mcg (Cyanocobalamin) 09:26:20 VAMP PRESSER CPT-46534 Abx/Therapy Injection 09:26:20 VAMP PRESSER CPT-J3420 Vitamin B12 1000mcg (Cyanocobalamin) 09:44:40 VAMP PRESSER CPT-08064 Abx/Therapy Injection 09:44:40 VAMP PRESSER CPT-J3420 Vitamin B12 1000mcg (Cyanocobalamin) 09:15:54 VAMP PRESSER CPT-31116 Abx/Therapy Injection 09:15:54 VAMP PRESSER CPT-J3420 Vitamin B12 1000mcg (Cyanocobalamin) 09:46:44 VAMP PRESSER CPT-67711 Abx/Therapy Injection 09:46:44 VAMP PRESSER CPT-J3420 Vitamin B12 1000mcg (Cyanocobalamin) 09:47:34 VAMP PRESSER CPT-89769 Abx/Therapy Injection 09:47:34 VAMP PRESSER CPT-J3420 Vitamin B12 1000mcg (Cyanocobalamin) 14:35:50 VAMP PRESSER CPT-J3420 Vitamin B12 1000mcg (Cyanocobalamin) 09:25:05 VAMP PRESSER CPT-39421 Abx/Therapy Injection 09:25:05 VAMP PRESSER CPT-G0008 Administration of Influenza Virus Vaccine 13:36:47 CDT CPT-40914 Fluzone High-Dose Intramuscular Suspension 11/15 13:36:47 CDT CPT-J0897 Prolia 60 mg 08:50:41 CDT CPT-04918 Abx/Therapy Injection 08:50:41 CDT CPT-11548 Bone Density 12:06:12 CDT CPT-26982 Bone Density 08:54:40 CDT CPT-OV Office Visit 15:37:02 CDT CPT-02752 Postop F/U Visit 15:47:49 CDT CPT-28384 Postop F/U Visit 15:21:02 CDT CPT-TCM Transitional Care Mgmt-High 07:52:27 CDT 20 20/06/01 CPT-53308 Venipuncture Draw Fee 13:51:18 CDT CPT-88905 Venipuncture Draw Fee 10:14:55 VAMP PRESSER CPT-61184 Venipuncture Draw Fee 13:39:45 VAMP PRESSER CPT-OV Office Visit 15:11:22 VAMP PRESSER CPT-74484 Venipuncture Draw Fee 09:20:49 VAMP PRESSER CPT-12602 Venipuncture Draw Fee 16:52:15 VAMP PRESSER CPT-76680 Venipuncture Draw Fee 10:37:24 VAMP PRESSER CPT-75903 Venipuncture Draw Fee 08:21:21 VAMP PRESSER CPT-95387 Venipuncture Draw Fee 08:30:20 VAMP PRESSER CPT-08627 Venipuncture Draw Fee 14:53:21 VAMP PRESSER CPT-91957 Venipuncture Draw Fee 09:40:56 VAMP PRESSER CPT-84628 Venipuncture Draw Fee 10:30:47 VAMP PRESSER CPT-81826 Venipuncture Draw Fee 10:46:17 VAMP PRESSER CPT-93172 Venipuncture Draw Fee 11:12:45 VAMP PRESSER CPT-51743 Venipuncture Draw Fee 09:53:33 VAMP PRESSER CPT-34929 Venipuncture Draw Fee 11:53:51 VAMP PRESSER CPT-66615 Venipuncture Draw Fee 10:33:50 VAMP PRESSER CPT-48236 Venipuncture Draw Fee 10:05:01 VAMP PRESSER CPT-81250 Venipuncture Draw Fee 14:32:52 VAMP PRESSER CPT-55128 Venipuncture Draw Fee 09:46:13 VAMP PRESSER CPT-45491 Venipuncture Draw Fee 11:34:27 VAMP PRESSER CPT-33487 Venipuncture Draw Fee 13:17:16 VAMP PRESSER CPT-50827 Venipuncture Draw Fee 12:05:39 CDT CPT-50401 Venipuncture Draw Fee 12:49:12 CDT CPT-14097 Venipuncture Draw Fee 12:37:18 CDT CPT-41627 Venipuncture Draw Fee 10:57:11 CDT CPT-75541 Venipuncture Draw Fee 13:47:40 CDT CPT-24289 Venipuncture Draw Fee 10:02:17 CDT CPT-69248 TB Tubersol 17:32:32 CDT CPT-OV Office Visit 16:21:53 CDT CPT-OV Office Visit 15:49:22 CDT CPT-OV Office Visit 17:16:31 CDT CPT-OV Office Visit 10:43:31 CDT
--- OUTSIDE RECORDS SUMMARY | 2019-02-09 11:48 | XMS REPORT | Clinical Summary ---
Author Author Admin, Florecita Munoz Organization [facility] [employer] Address Unknown Phone Unavailable Allergies, Adverse Reactions, [...] Sebaceous cyst, scalp 706.2 Resolved Kylie Yokum DEPUTY SHERIFF GENERALIST/BAILIFF Sebaceous cyst Cervical lymphadenopathy, anterior, left 785.6 Resolv ed Kylie Yokum DEPUTY SHERIFF GENERALIST/BAILIFF Enlargement of lymph nodes Need for prophylactic vaccination and inoculation against in fluenza V04.81 Resolved Adam Yates MD Need for prophylactic vaccination and inoculation against influenza Preventive health care V70.0 Resolved Kylie Lundu m DEPUTY SHERIFF GENERALIST/BAILIFF Routine general medical examination at a health care facility Thyroid nodule, left 241.0 Resolved Selena Yates MD Nontoxic uninodular goiter Screening mammogram V76.12 Resolved Kylie Yokum A PRN Other screening mammogram Mandy 706.2 Resolved Kylie Yokum DEPUTY SHERIFF GENERALIST/BAILIFF Sebaceous cyst Colon cancer, ascending 153.6 Resolved Kylie Yok um DEPUTY SHERIFF GENERALIST/BAILIFF Malignant neoplasm of ascending colon Foot pain, left 729.5 Resolved Kylie Yokum DEPUTY SHERIFF GENERALIST/BAILIFF Pain in limb Splinter 919.6 Resolved Kylie Yokum DEPUTY SHERIFF GENERALIST/BAILIFF Superficial foreign body (splinter) of other, multiple, and unspecified sites, without major open wound and without mention of infection Rash 782.1 Resolved Kylie Yokum DEPUTY SHERIFF GENERALIST/BAILIFF Rash and other nonspecific skin eruption Cyst 706.2 Resolved Kylie Yokum DEPUTY SHERIFF GENERALIST/BAILIFF Sebaceous cyst Body Mass Index 23.0-23.9 Adult Refinement 2017 Kylie Yokum DEPUTY SHERIFF GENERALIST/BAILIFF Body Mass Index between 19-24, adult BMI less than 20 Refinement Adam wiggins MD Body Mass Index between 19-24, adult BMI 24-24.9 Refinement Adam Yates MD Body Mass Index between 19-24, adult BMI 23-23.9 Active Adam Ytaes MD Body Mass Index between 19-24, adult [...] RIGHT LOWER QUADRANT ICD-789.03 Inactive Kina Joshua DEPUTY SHERIFF GENERALIST/BAILIFF ADENOCARCINOMA, COLON, 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 Dick Yates MD ABDOMINAL PAIN, GENERALIZED ICD-789.07 Inactive Hope Benavidez MD PhD FEVER UNSPECIFIED ICD-780.60 Inactive Hope cohn MD PhD UNSPECIFIED VENOUS INSUFFICIENCY ICD-459.81 Kim ctive Adam Yates MD ADENOCARCINOMA, 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 Inac tive Hope Benavidez MD PhD Hyperkalemia ICD-276.7 Inactive Hope Benavidez MD PhD GERD ICD-530.81 Inactive Kylie Yanet DEPUTY SHERIFF GENERALIST/BAILIFF 2015 Health maintenance exam ICD-V70.0 Bam Yates MD Anemia ICD-285.9 Inactive Kylie Escalonapari DEPUTY SHERIFF GENERALIST/BAILIFF 07/24 Hypomagnesemia ICD-275.2 Inactive Kylie Holt DEPUTY SHERIFF GENERALIST/BAILIFF Weakness ICD-780.79 Inactive Hope Benavidez MD P [...] cyst, scalp ICD-706.2 Inactive Tracy hi Yokum DEPUTY SHERIFF GENERALIST/BAILIFF Cervical lymphadenopathy, anterior, left ICD-785.6 Inactive Kylie Yokum DEPUTY SHERIFF GENERALIST/BAILIFF Need for prophylactic vaccination and inoculation against in fluenza ICD-V04.81 Inactive Adam Yates MD Preventive health care ICD-V70.0 Inactive Ka thi Yokum DEPUTY SHERIFF GENERALIST/BAILIFF Thyroid nodule, left ICD-241.0 Inactive Selena Yates MD Screening mammogram ICD-V76.12 Inactive Kylie Yokum DEPUTY SHERIFF GENERALIST/BAILIFF Mandy ICD-706.2 Inactive Kylie Yokum DEPUTY SHERIFF GENERALIST/BAILIFF 07/20 Colon cancer, ascending ICD-153.6 Inactive K athi Yokum DEPUTY SHERIFF GENERALIST/BAILIFF Foot pain, left ICD-729.5 Inactive Kylie Yokum DEPUTY SHERIFF GENERALIST/BAILIFF Splinter ICD-919.6 Inactive Kylie Yokum DEPUTY SHERIFF GENERALIST/BAILIFF 2017 Rash ICD-782.1 Inactive Kylie Yokum DEPUTY SHERIFF GENERALIST/BAILIFF 07/25 Cyst ICD-706.2 Inactive Kylie Yokum DEPUTY SHERIFF GENERALIST/BAILIFF 08/11 Unspecified fall, initial encounter ICD-E888.9 Inactive Kylie Yokum DEPUTY SHERIFF GENERALIST/BAILIFF Eye pain, left ICD-379.91 Inactive Kylie Holt [...] MCG ORAL TABLET 1 daily LEVOTHYROXINE SODIUM 90676628987 Active Kylie Holt APRN Active VOLTAREN 1 % TRANSDERMAL GEL apply 2 grams q 6-8 hour to left arm as needed for pain DICLOFENAC SODIUM 24604634165 Active Kylie Marrero Active IMODIUM A-D 2 MG ORAL TABLET 1 tablet twice a day LOPERAMIDE HCL 52711456663 Active Kylie Holt APRN Active COQ10 100 MG ORAL CAPSULE 1 daily COENZYME Q10 732177 94394 Active LETY [place] Active VITAMIN D3 2000 UNIT ORAL CAPSULE [place]-One daily CHOLECALCIFEROL 95163139444 Active Kylie Holt APRN Active PROBIOTIC DAILY ORAL CAPSULE Take one daily PROBIO TIC PRODUCT 09285488647 Active Kylie Holt APRN Active IRON 325 (65 Fe) MG ORAL TABLET 1 every other day FERROUS SULFATE 44132506278 No Longer Active Kylie Holt APRN Active FLORANEX ORAL PACKET 1 pack three times daily, for bowel health LACTOBACILLUS 21861980049 No Longer Active Kylie Holt APRN Active LOMOTIL 2.5-0.025 MG ORAL TABLET 1 tab by mouth prn 20 23/10/23 DIPHENOXYLATE-ATROPINE 48064173034 No Longer Active Kylie Polakum DEPUTY SHERIFF GENERALIST/BAILIFF Active MAGNESIUM GLUCONATE 250 MG ORAL TABLET 1 tab tid 20 23/10/23 MAGNESIUM GLUCONATE 11288142773 No Longer Active Kylie Yokum DEPUTY SHERIFF GENERALIST/BAILIFF Active CYANOCOBALAMIN 1000 MCG/ML INJECTION SOLUTION 1 injection ev ruben 2 weeks CYANOCOBALAMIN 96714451608 No Longer Active Kylie Yogabbi um DEPUTY SHERIFF GENERALIST/BAILIFF Active ATENOLOL 25 MG ORAL TABLET 1/2 pill by mouth daily, fo r headaches, blood pressure ATENOLOL 29296099830 Active Kylie Yokum DEPUTY SHERIFF GENERALIST/BAILIFF Active PROPRANOLOL HCL 80 MG ORAL TABLET 1 tab tue. and thur. PROPRANOLOL HCL 39765619239 No Longer Active Hope Benavidez MD PhD A ctive VITAMIN D3 4000 IU 1 tab 3 times daily VITAMIN D3 4000 IU No Longer Active Hope Benavidez MD PhD Active BACTRIM DS 800-160 MG ORAL TABLET 1 pill by mouth twice claudio y, for UTI SULFAMETHOXAZOLE-TRIMETHOPRIM 25519667178 No Longer Active Hope Benavidez MD PhD Active PROLIA 60 MG/ML SUBCUTANEOUS SOLUTION 1 shot every 6 months for osteoprosis DENOSUMAB 60385971904 Active Hope Benavidez MD PhD Active CALCIUM + D + K 750-500-40 MG-UNT-MCG ORAL TABLET 1 tab by m [facility] twice daily CALCIUM-VITAMIN D-VITAMIN K 54103699635 Active Hope valdez MD PhD Active DAILY VALUE MULTIVITAMIN ORAL TABLET 1 tab by mouth twice daily 201 05/16/14 MULTIPLE VITAMIN 09528416834 Active Hope Benavidez MD PhD Acti ve FISH OIL 306 MG CAPS 1 tab by mouth three times daily OMEGA-3 FATTY ACIDS 91181255307 Active Hope Benavidez MD PhD Active LUTEIN 10 MG ORAL TABLET 1 tab daily LUTEIN 41013196 408 Active Hope Benavidez MD PhD Active TRIAMTERENE-HCTZ 37.5-25 MG ORAL TABLET 1 tab by mouth daily 10/22 TRIAMTERENE-HCTZ 32407674901 Active Kylie Holt AMY Active CYCLOBENZAPRINE HCL 10 MG ORAL TABLET 1 tablet by [facility] three times daily as needed for headaches CYCLOBENZAPRINE HCL 40465659142 No Longer Active Adam Yates MD Active OMEPRAZOLE 20 MG ORAL CAPSULE DELAYED RELEASE 1 tablet by [facility] daily for GERD OMEPRAZOLE 18848903894 No Longer Active Adam Yates MD Active ZOFRAN 8 MG ORAL TABLET 1 tab by mouth every 12 hours prn 4 ONDANSETRON HCL 91384113794 No Longer Active Adam Yates MD Active PHENADOZ 25 MG RECTAL SUPPOSITORY 1 every 4 hrs. PRN 2 PROMETHAZINE HCL 76695691017 No Longer Active Adam Yates MD A ctive POTASSIUM CHLORIDE 20 MEQ ORAL PACKET by mouth twice a day prn 2 POTASSIUM CHLORIDE 60146274485 No Longer Active Adam Carpenter MD Active PROMETHAZINE HCL 25 MG ORAL TABLET 1 Q. 4 hr. PRN PROMETHAZINE HCL 36799989939 No Longer Active Adam Yates MD Active INNOPRAN XL 120 MG ORAL CAPSULE EXTENDED RELEASE 24 HO UR Take one by mouth daily PROPRANOLOL HCL SR BEADS 98594324481 No Longer Active Adam Yates MD Active FLAGYL 500 MG ORAL TABLET 1 pill by mouth three times daily, for diarrhea METRONIDAZOLE 53455977171 No Longer Active Hope landers MD PhD Active DYAZIDE 37.5-25 MG ORAL CAPSULE 1 qd TRIA MTERENE-HCTZ 94626794057 No Longer Active Hope Benavidez MD PhD Active PROZAC 20 MG ORAL CAPSULE 1 q d FLUOXETINE HCL 07280742478 No Longer Active Hope Benavidez MD PhD Active SIMVASTATIN 40 MG ORAL TABLET 1 qd SIMVAS TATIN 52884590117 No Longer Active Adam Yates MD Active MELOXICAM 15 MG ORAL TABLET 1 qd MELOXICAM 40951307316 No Longer Active Adam Yates MD Active EXCEDRIN EXTRA STRENGTH 250-250-65 MG ORAL TABLET 1-2 q6h AK N headache [id number]-CYFWDVQE 43577083312 Active Hope Benavidez MD PhD Active FLAGYL 500 MG ORAL TABLET 1 qid METRONIDAZOL E 22875123239 No Longer Active Adam Yates MD Active LEVAQUIN 750 MG ORAL TABLET 1 qd LEVOFLOXAC IN 85240588694 No Longer Active Adam Yates MD Active ADULT ASPIRIN LOW STRENGTH 81 MG ORAL TABLET DISINTEGRATING 1 qd ASPIRIN 01963557893 Active Hope Benavidez MD PhD Active LEVAQUIN 750 MG ORAL TABLET 1 qd LEVAQUIN 750 MG ORAL TABLET 457426 LEVOFLOXACIN Inactive FLAGYL 500 MG ORAL TABLET 1 qid FLAGYL 500 MG ORAL TABLET 779145 METRONIDAZOLE Inactive MELOXICAM 15 MG ORAL TABLET 1 qd MELOXICAM 15 MG ORAL TABLET 391285 MELOXICAM Inactive SIMVASTATIN 40 MG ORAL TABLET 1 qd SIMVASTATIN 40 MG ORAL TABLET 736537 SIMVASTATIN Inactive PROZAC 20 MG ORAL CAPSULE 1 q d PROZAC 20 MG ORAL CAPSULE 550732 FLUOXETINE HCL Inactive DYAZIDE 37.5-25 MG ORAL CAPSULE 1 qd 5 DYAZIDE 37.5-25 MG ORAL CAPSULE 260643 TRIAMTERENE-HCTZ Inactive INNOPRAN XL 120 MG ORAL CAPSULE EXTENDED RELEASE 24 HO UR Take one by mouth daily INNOPRAN XL 120 MG ORAL CAPSULE EXTENDED RELEASE 24 HOUR PROPRANOLOL HCL SR BEADS Inactive PROMETHAZINE HCL 25 MG ORAL TABLET 1 Q. 4 hr. PRN 2013 PROMETHAZINE HCL 25 MG ORAL TABLET 644566 PROMETHAZINE HCL Inactive POTASSIUM CHLORIDE 20 MEQ ORAL PACKET by mouth twice a day prn 2 POTASSIUM CHLORIDE 20 MEQ ORAL PACKET 1603535 POTASSIUM CHLORIDE Inactive PHENADOZ 25 MG RECTAL SUPPOSITORY 1 every 4 hrs. PRN 2 PHENADOZ 25 MG RECTAL SUPPOSITORY 184996 PROMETHAZINE HCL Inactive ZOFRAN 8 MG ORAL TABLET 1 tab by mouth every 12 hours prn 4 ZOFRAN 8 MG ORAL TABLET 871081 ONDANSETRON HCL Inactive OMEPRAZOLE 20 MG ORAL CAPSULE DELAYED RELEASE 1 tablet by [facility] daily for GERD OMEPRAZOLE 20 MG ORAL CAPSULE DELAYED RELEASE 19 8051 OMEPRAZOLE Inactive CYCLOBENZAPRINE HCL 10 MG ORAL TABLET 1 tablet by mout three times daily as needed for headaches CYCLOBENZAPRINE HCL 10 MG ORAL TABLET 184355 CYCLOBENZAPRINE HCL Inactive VITAMIN D3 4000 IU 1 tab 3 times daily VITAMIN D3 4000 IU Inactive PROPRANOLOL HCL 80 MG ORAL TABLET 1 tab tue. and thur. PROPRANOLOL HCL 80 MG ORAL TABLET 633834 PROPRANOLOL HCL Inacti ve CYANOCOBALAMIN 1000 MCG/ML INJECTION SOLUTION 1 injection ev ruben 2 weeks CYANOCOBALAMIN 1000 MCG/ML INJECTION SOLUTION 30 9594 CYANOCOBALAMIN Inactive MAGNESIUM GLUCONATE 250 MG ORAL TABLET 1 tab tid 23/10/23 MAGNESIUM GLUCONATE 250 MG ORAL TABLET 056102 MAGNESIUM GLUCONATE Inactive LOMOTIL 2.5-0.025 MG ORAL TABLET 1 tab by mouth prn 23/10/23 LOMOTIL 2.5-0.025 MG ORAL TABLET 1874793 DIPHENOXYLATE-ATROPINE Inac tive FLORANEX ORAL PACKET 1 pack three times daily, for bowel health FLORANEX ORAL PACKET 29345132971 LACTOBACILLUS Inactive IRON 325 (65 Fe) MG ORAL TABLET 1 every other day 2015 IRON 325 (65 Fe) MG ORAL TABLET 539974 FERROUS SULFATE Inactive FLAGYL 500 MG ORAL TABLET 1 pill by mouth three times daily, for diarrhea FLAGYL 500 MG ORAL TABLET 561150 METRONIDAZOLE I nactive BACTRIM DS 800-160 MG ORAL TABLET 1 pill by mouth twice claudio y, for UTI BACTRIM DS 800-160 MG ORAL TABLET 633858 SULFAMETHOXAZOLE-TRIMETHOPRIM Inactive Advance Directives Directive Description Start [...] ... - Chemistry sodium, serum 141 mmol/L 545-762 2413/01/10 potassium, serum 3.7 mmol/L 3.5-5.2 chloride, serum 101 mmol/L 98-107 carbon dioxide, venous blood 31.0 mmol/L 21.0-32 .0 blood glucose 96 mg/dL 65-95 calcium, serum 9.5 mg/dL 8.5-10.1 urea nitrogen, blood 21 mg/dL 7-18 creatinine, serum 1.40 mg/dL 0.60-1.30 Estimated Glomerular Filtration Rate (calc) 39 (?) mL/min/1.73m2 = OR > 60 mL/min cholesterol, serum 211 mg/dL 531-181 1672/01/10 triglyceride, serum, fasting 77 mg/dL 30-200 HDL [...] 0.82 ng/dL 0.59-1.17 sodium, serum 142 mmol/L 673-321 8140/04/16 carbon dioxide, venous blood 30.0 mmol/L 21.0-32 [...] - Chelle radha sodium, serum 142 mmol/L 110-770 6427/11/02 potassium, serum 3.4 mmol/L 3.5-5.2 chloride, serum [...] 0.59-1.17 Encounters Code Encounter Date Provider Facility CPT-98359 [id number] Vst-Est Level III 09:15:19 [facility] [place] [facility] Level 4 Est. Patient 15:35:24 [employer] Adam Yates MD [facility] CPT-13943 Level 3 New Patient 12:08:54 [employer] Adam Yates MD [facility] CPT-21188 [id number] Vst-Est Level IV 19:48:30 [employer] Tracy Holt [facility] [place] CPT-81888 [id number] Vst-Est Level III 14:29:19 CDT Fiorella Holt [facility] [place] CPT-47322 Level 2 Est. Patient 14:58:26 CDT Kylie boyd [facility] [place] CPT-79929 Level 3 Est. Patient 08:15:24 [employer] Kylie boyd [facility] CPT-91783 Level 2 Est. Patient 14:27:16 [employer] Kylie boyd [facility] CPT-33656 Level 3 Est. Patient 17:54:48 CDT Kylie boyd [facility] CPT-65599 Level 3 Est. Patient 16:26:30 CDT Kina blackmon [facility] CPT-62909 Level 3 New Patient 16:22:01 [employer] Adam Yates MD [facility] CPT-68093 Level 4 Est. Patient 17:00:48 CDT Kylie Lund [facility] CPT-11155 Level 3 Est. Patient 13:15:54 CDT Kylie Lund [facility] CPT-16530 Level 3 Est. Patient 09:10:11 CDT Kylie Lund [facility] CPT-08565 Level 4 Est. Patient 12:08:30 [employer] Hope cohn MD [facility] CPT-91317 Level 4 Est. Patient 19:08:42 [employer] Hope cohn MD [facility] CPT-37102 Level 4 Est. Patient 20:04:51 CDT Hope cohn MD PhD [facility] CPT-09108 Level 3 New Patient 01:46:11 [employer] Hope landers MD PhD [facility] Procedures Code Procedure Name Date Entry Date Standard Desc ription CPT-G0439 [facility] Annual Wellness Exam 09:15:19 CDT CPT-34186 Postop F/U Visit 15:45:41 CDT CPT-66585 Sono Soft Tissue Head and Neck - XRAY US E ONLY 11:56:06 [employer] CPT-84427 Abx/Therapy Injection 09:40:08 [employer] CPT-J0897 Prolia 60 mg 09:40:08 [employer] CPT-66339 First Vx - Ix admin for Medicare patients 02/08 10:02:45 CDT CPT-06842 Fluzone Quadrivalent Intramuscular Suspe nsion 0.5 ML 10:02:45 CDT CPT-02479 Magnesium - LAB USE ONLY 09:41:00 CDT 12/09 CPT-70483 Renal Panel - LAB USE ONLY 09:41:00 CDT 201 09/17/01 CPT-73172 Venipuncture Draw Fee 09:41:00 CDT CPT-51732 Calcium - LAB USE ONLY 17:25:11 CDT CPT-J0897 Prolia 60 mg 15:10:59 CDT CPT-81345 Abx/Therapy Injection 15:10:59 CDT CPT-G0439 Subsequent Annual Wellness Exam 14:29:19 CDT CPT-28100 Venipuncture Draw Fee 10:59:04 CDT CPT-18715 CMP - LAB USE ONLY 10:59:04 CDT CPT-24158 CBC with Diff - LAB USE ONLY 10:59:03 CDT 2 CPT-J0897 Prolia 60 mg 15:46:54 [employer] CPT-54510 Abx/Therapy Injection 15:46:54 [employer] CPT-48570 Microalbumin - LAB USE ONLY 09:41:32 [employer] 20 23/01/15 CPT-44291 Free T4 - LAB USE ONLY 09:41:32 [employer] CPT-04742 TSH - LAB USE ONLY 09:41:32 [employer] CPT-61090 BMP - LAB USE ONLY 09:41:32 [employer] CPT-68252 Venipuncture Draw Fee 09:41:32 [employer] CPT-28137 First Vx - Ix admin for Medicare patients 11:19:30 CDT CPT-50496 Fluzone High-Dose Intramuscular Suspension 12/07 11:19:30 CDT CPT-J0897 Prolia 60 mg 14:55:42 CDT CPT-97843 Abx/Therapy Injection 14:55:42 CDT CPT-22419 Bone Density - XRAY USE ONLY 10:27:12 CDT 2 CPT-G0439 [facility] Subsequent Annual Wellness Exam 17:54:53 CDT CPT-70891 Foot, left, comp min 3V - XRAY USE ONLY 12:22:49 CDT CPT-G0009 Administration of Pneumococcal Vaccine 3 12:18:00 CDT CPT-27542 Pneumovax 23 Injection Injectable 25 MCG /0.5ML 12:18:00 CDT CPT-J0897 Prolia 60 mg 14:14:16 [employer] CPT-74755 Abx/Therapy Injection 14:14:15 [employer] CPT-59793 Lipid - LAB USE ONLY 10:01:52 [employer] 2 CPT-71607 Calcium - LAB USE ONLY 10:01:51 [employer] CPT-73208 Venipuncture Draw Fee 10:01:51 [employer] CPT-LR Lesion Removal 16:22:01 [employer] CPT-76556 TSH - LAB USE ONLY 14:26:02 CDT CPT-57391 CMP - LAB USE ONLY 14:26:01 CDT CPT-81902 CBC with Diff - LAB USE ONLY 14:26:01 CDT 2 CPT-73155 Venipuncture Draw Fee 14:26:01 CDT CPT-65139 First Vx - Ix admin for Medicare patients 13:27:08 CDT CPT-84401 Fluzone High-Dose Intramuscular Suspension 11/26 13:27:08 CDT CPT-G0438 Initial Annual Wellness Exam 14:19:57 CD T CPT-G0009 Administration of Pneumococcal Vaccine 9 11:36:25 CDT CPT-43188 Prevnar 13 Intramuscular Suspension 1 1:36:25 CDT CPT-13198 Prevnar 13 Intramuscular Suspension 1 0:40:58 CDT CPT-J0897 Prolia 60 mg 10:37:16 CDT CPT-71903 Abx/Therapy Injection 10:37:16 CDT CPT-J0897 Prolia 60 mg 16:09:34 [employer] CPT-J0897 Prolia 60 mg 11:10:35 [employer] CPT-50281 Abx/Therapy Injection 11:10:35 [employer] CPT-000 Give Appropriate Flu Vaccine 17:01:15 [employer] 2 CPT-28692 Fluzone High Dose (65+) 15:03:08 [employer] 02/15 CPT-61161 Immunization Single Admin 15:03:08 [employer] 2014 CPT-OV Office Visit 15:58:06 CDT CPT-J0897 Prolia 60 mg 08:45:38 CDT CPT-60084 Abx/Therapy Injection 08:45:38 CDT CPT-J3420 Vitamin B12 1000mcg (Cyanocobalamin) 09:26:20 [employer] CPT-87619 Abx/Therapy Injection 09:26:20 [employer] CPT-J3420 Vitamin B12 1000mcg (Cyanocobalamin) 09:44:40 [employer] CPT-49430 Abx/Therapy Injection 09:44:40 [employer] CPT-J3420 Vitamin B12 1000mcg (Cyanocobalamin) 09:15:54 [employer] CPT-91342 Abx/Therapy Injection 09:15:54 [employer] CPT-J3420 Vitamin B12 1000mcg (Cyanocobalamin) 09:46:44 [employer] CPT-45359 Abx/Therapy Injection 09:46:44 [employer] CPT-J3420 Vitamin B12 1000mcg (Cyanocobalamin) 09:47:34 [employer] CPT-43367 Abx/Therapy Injection 09:47:34 [employer] CPT-J3420 Vitamin B12 1000mcg (Cyanocobalamin) 14:35:50 [employer] CPT-J3420 Vitamin B12 1000mcg (Cyanocobalamin) 09:25:05 [employer] CPT-03245 Abx/Therapy Injection 09:25:05 [employer] CPT-G0008 Administration of Influenza Virus Vaccine 13:36:47 CDT CPT-91046 Fluzone High-Dose Intramuscular Suspension 11/15 13:36:47 CDT CPT-J0897 Prolia 60 mg 08:50:41 CDT CPT-24653 Abx/Therapy Injection 08:50:41 CDT CPT-30069 Bone Density 12:06:12 CDT CPT-43865 Bone Density 08:54:40 CDT CPT-OV Office Visit 15:37:02 CDT CPT-04150 Postop F/U Visit 15:47:49 CDT CPT-29326 Postop F/U Visit 15:21:02 CDT CPT-TCMH Transitional Care Mgmt-High 07:52:27 CDT 20 20/06/01 CPT-58303 Venipuncture Draw Fee 13:51:18 CDT CPT-40474 Venipuncture Draw Fee 10:14:55 [employer] CPT-81152 Venipuncture Draw Fee 13:39:45 [employer] CPT-OV Office Visit 15:11:22 [employer] CPT-90191 Venipuncture Draw Fee 09:20:49 [employer] CPT-83016 Venipuncture Draw Fee 16:52:15 [employer] CPT-87576 Venipuncture Draw Fee 10:37:24 [employer] CPT-83577 Venipuncture Draw Fee 08:21:21 [employer] CPT-02542 Venipuncture Draw Fee 08:30:20 [employer] CPT-95911 Venipuncture Draw Fee 14:53:21 [employer] CPT-68340 Venipuncture Draw Fee 09:40:56 [employer] CPT-81519 Venipuncture Draw Fee 10:30:47 [employer] CPT-22066 Venipuncture Draw Fee 10:46:17 [employer] CPT-11979 Venipuncture Draw Fee 11:12:45 [employer] CPT-42650 Venipuncture Draw Fee 09:53:33 [employer] CPT-08676 Venipuncture Draw Fee 11:53:51 [employer] CPT-48048 Venipuncture Draw Fee 10:33:50 [employer] CPT-77977 Venipuncture Draw Fee 10:05:01 [employer] CPT-07158 Venipuncture Draw Fee 14:32:52 [employer] CPT-04003 Venipuncture Draw Fee 09:46:13 [employer] CPT-76007 Venipuncture Draw Fee 11:34:27 [employer] CPT-33641 Venipuncture Draw Fee 13:17:16 [employer] CPT-40822 Venipuncture Draw Fee 12:05:39 CDT CPT-33187 Venipuncture Draw Fee 12:49:12 CDT CPT-62672 Venipuncture Draw Fee 12:37:18 CDT CPT-47562 Venipuncture Draw Fee 10:57:11 CDT CPT-27076 Venipuncture Draw Fee 13:47:40 CDT CPT-47558 Venipuncture Draw Fee 10:02:17 CDT CPT-66725 TB Tubersol 17:32:32 CDT CPT-OV Office Visit 16:21:53 CDT CPT-OV Office Visit 15:49:22 CDT CPT-OV Office Visit 17:16:31 CDT CPT-OV Office Visit 10:43:31 CDT
--- OUTSIDE RECORDS SUMMARY | 2019-02-09 11:48 | XMS REPORT | Clinical Summary ---
Author Author Renaldo, Florecita Munoz Organization [facility] E[place] Address Unknown Phone Unavailable Allergies, Adverse Reactions, Alerts Allergy Name Reaction Description Start Date Severity Status Pr ovider NKDA Critical Active Kylie MEEK RN Conditions or Problems Problem Name Problem Code Onset Date Status Entry Date Provider Comment Standard Description Annotate HYPERLIPIDEMIA 272.4 Active Kina Joshua APRN Other and unspecified hyperlipidemia HYPERTENSION 401.9 Active Kina Jsohua APRN Unspecified essential hypertension ABDOMINAL PAIN, RIGHT [...] PhD Hyperpotassemia GERD 530.81 Resolved Kylie Yokum MAILROOM COORDINATOR Esophageal reflux Health maintenance exam V70.0 Resolved Adolfo Yates MD Routine general medical examination at a health care facility Anemia 285.9 Resolved Kylie Yanet MAILROOM COORDINATOR Anemia, unspecified Personal history of malignant neoplasm of large intestine V10.05 Active Adam Yates MD Personal history of malignant neoplasm of large intestine Hypomagnesemia 275.2 Resolved Kylie Yanet MAILROOM COORDINATOR Disorders of magnesium metabolism Weakness 780.79 Resolved [...] PhD Diarrhea Diarrhea, functional 564.5 Resolved Selena Yatse MD Functional diarrhea Osteoporosis 733.00 Active Hope [...] Sebaceous cyst, scalp 706.2 Resolved Kylie Yokum MAILROOM COORDINATOR Sebaceous cyst Cervical lymphadenopathy, anterior, left 785.6 Resolv ed Kylie Yokum MAILROOM COORDINATOR Enlargement of lymph nodes Need for prophylactic vaccination and inoculation against in fluenza V04.81 Resolved Adam Yates MD Need for prophylactic vaccination and inoculation against influenza Preventive health care V70.0 Resolved Kylie Lundu m MAILROOM COORDINATOR Routine general medical examination at a health care facility Thyroid nodule, left 241.0 Resolved Selena Yates MD Nontoxic uninodular goiter Screening mammogram V76.12 Resolved Kylie Yokum A PRN Other screening mammogram Mandy 706.2 Resolved Kylie Yokum MAILROOM COORDINATOR Sebaceous cyst Colon cancer, ascending 153.6 Resolved Kylie Yok um MAILROOM COORDINATOR Malignant neoplasm of ascending colon Foot pain, left 729.5 Resolved Kylie Yokum MAILROOM COORDINATOR Pain in limb Splinter 919.6 Resolved Kylie Yokum MAILROOM COORDINATOR Superficial foreign body (splinter) of other, multiple, and unspecified sites, without major open wound and without mention of infection Rash 782.1 Resolved Kylie Yokum MAILROOM COORDINATOR Rash and other nonspecific skin eruption Cyst 706.2 Resolved Kylie Yokum MAILROOM COORDINATOR Sebaceous cyst Body Mass Index 23.0-23.9 Adult Refinement 2017 Kylie Yokum MAILROOM COORDINATOR Body Mass Index between 19-24, adult BMI [...] Disorders of magnesium metabolism Hypokalemia 276.8 Resolved Adma Delgado D Hypopotassemia Enlarged thyroid 240.9 Resolved [...] RIGHT LOWER QUADRANT ICD-789.03 Inactive Kina Joshua MAILROOM COORDINATOR ADENOCARCINOMA, COLON, 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 Dick Yates MD ABDOMINAL PAIN, GENERALIZED ICD-789.07 Inactive Hope Benavidez MD PhD FEVER UNSPECIFIED ICD-780.60 Inactive Hope cohn MD PhD UNSPECIFIED VENOUS INSUFFICIENCY ICD-459.81 Elda ctive Adam Yates MD ADENOCARCINOMA, 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 Inac tive Hope Benavidez MD PhD Hyperkalemia ICD-276.7 Inactive Hope Benavidez MD PhD GERD ICD-530.81 Inactive Kylieshubham Holt MAILROOM COORDINATOR 2015 Health maintenance exam ICD-V70.0 Bam Yates MD Anemia ICD-285.9 Inactive Kylieshubham Holt MAILROOM COORDINATOR 07/24 Hypomagnesemia ICD-275.2 Inactive Kyile Holt MAILROOM COORDINATOR Weakness ICD-780.79 Inactive Hope Benavidez MD P [...] cyst, scalp ICD-706.2 Inactive Tracy hi Yokum MAILROOM COORDINATOR Cervical lymphadenopathy, anterior, left ICD-785.6 Inactive Kylie Yokum MAILROOM COORDINATOR Need for prophylactic vaccination and inoculation against in fluenza ICD-V04.81 Inactive Adam Yates MD Preventive health care ICD-V70.0 Inactive Ka thi Yokum MAILROOM COORDINATOR Thyroid nodule, left ICD-241.0 Inactive Selean Yates MD Screening mammogram ICD-V76.12 Inactive Kylie Yokum MAILROOM COORDINATOR Mandy ICD-706.2 Inactive Kylie Yokum MAILROOM COORDINATOR 07/20 Colon cancer, ascending ICD-153.6 Inactive K athi Yokum MAILROOM COORDINATOR Foot pain, left ICD-729.5 Inactive Kylie Yokum MAILROOM COORDINATOR Splinter ICD-919.6 Inactive Kylie Yokum MAILROOM COORDINATOR 2017 Rash ICD-782.1 Inactive Kylie Yokum MAILROOM COORDINATOR 07/25 Cyst ICD-706.2 Inactive Kylie Yokum MAILROOM COORDINATOR 08/11 Unspecified fall, initial encounter ICD-E888.9 Inactive Kylie Yokum MAILROOM COORDINATOR Eye pain, left ICD-379.91 Inactive Kylie Holt [...] MCG ORAL TABLET 1 daily LEVOTHYROXINE SODIUM 63695896921 Active Kylie Holt APRN Active VOLTAREN 1 % TRANSDERMAL GEL apply 2 grams q 6-8 hour to left arm as needed for pain DICLOFENAC SODIUM 71659635082 Active Kylie Marrero Active IMODIUM A-D 2 MG ORAL TABLET 1 tablet twice a day LOPERAMIDE HCL 71329025727 Active Kylie Holt APRN Active COQ10 100 MG ORAL CAPSULE 1 daily COENZYME Q10 637932 30599 Active LETY Nation Active VITAMIN D3 2000 UNIT ORAL CAPSULE Melaleuca-One daily CHOLECALCIFEROL 44797576335 Active Kylie Holt APRN Active PROBIOTIC DAILY ORAL CAPSULE Take one daily PROBIO TIC PRODUCT 30328437869 Active Kylie Holt APRN Active IRON 325 (65 Fe) MG ORAL TABLET 1 every other day FERROUS SULFATE 94841695054 No Longer Active Kylie Holt APRN Active FLORANEX ORAL PACKET 1 pack three times daily, for bowel health LACTOBACILLUS 56255916828 No Longer Active Kylie Holt APRN Active LOMOTIL 2.5-0.025 MG ORAL TABLET 1 tab by mouth prn 20 23/10/23 DIPHENOXYLATE-ATROPINE 45034802454 No Longer Active Kylie Polakum MAILROOM COORDINATOR Active MAGNESIUM GLUCONATE 250 MG ORAL TABLET 1 tab tid 20 23/10/23 MAGNESIUM GLUCONATE 19302158397 No Longer Active Kylie Yokum MAILROOM COORDINATOR Active CYANOCOBALAMIN 1000 MCG/ML INJECTION SOLUTION 1 injection ev ruben 2 weeks CYANOCOBALAMIN 79736163894 No Longer Active Kylie Kevon um MAILROOM COORDINATOR Active ATENOLOL 25 MG ORAL TABLET 1/2 pill by mouth daily, fo r headaches, blood pressure ATENOLOL 20035123218 Active Kylie Yokum MAILROOM COORDINATOR Active PROPRANOLOL HCL 80 MG ORAL TABLET 1 tab tue. and thur. PROPRANOLOL HCL 81119992653 No Longer Active Hope Benavidez MD PhD A ctive VITAMIN D3 4000 IU 1 tab 3 times daily VITAMIN D3 4000 IU No Longer Active Hope Benavidez MD PhD Active BACTRIM DS 800-160 MG ORAL TABLET 1 pill by mouth twice claudio y, for UTI SULFAMETHOXAZOLE-TRIMETHOPRIM 17614925223 No Longer Active Hope Benavidez MD PhD Active PROLIA 60 MG/ML SUBCUTANEOUS SOLUTION 1 shot every 6 months for osteoprosis DENOSUMAB 50048858803 Active Hope Benavidez MD PhD Active CALCIUM + D + K 750-500-40 MG-UNT-MCG ORAL TABLET 1 tab by m [facility] twice daily CALCIUM-VITAMIN D-VITAMIN K 87388161186 Active Hope valdez MD PhD Active DAILY VALUE MULTIVITAMIN ORAL TABLET 1 tab by mouth twice daily 201 05/16/14 MULTIPLE VITAMIN 37284465446 Active Hope Benavidez MD PhD Acti ve FISH OIL 306 MG CAPS 1 tab by mouth three times daily OMEGA-3 FATTY ACIDS 10241735093 Active Hope Benavidez MD PhD Active LUTEIN 10 MG ORAL TABLET 1 tab daily LUTEIN 14611310 408 Active Hope Benavidez MD PhD Active TRIAMTERENE-HCTZ 37.5-25 MG ORAL TABLET 1 tab by mouth daily 10/22 TRIAMTERENE-HCTZ 20131502538 Active Kylie Holt AMY Active CYCLOBENZAPRINE HCL 10 MG ORAL TABLET 1 tablet by [facility] three times daily as needed for headaches CYCLOBENZAPRINE HCL 71492904568 No Longer Active Adam Yates MD Active OMEPRAZOLE 20 MG ORAL CAPSULE DELAYED RELEASE 1 tablet by mo [facility] daily for GERD OMEPRAZOLE 57966879792 No Longer Active Adam Yates MD Active ZOFRAN 8 MG ORAL TABLET 1 tab by mouth every 12 hours prn 4 ONDANSETRON HCL 91751799257 No Longer Active Adam Yates MD Active PHENADOZ 25 MG RECTAL SUPPOSITORY 1 every 4 hrs. PRN 2 PROMETHAZINE HCL 84296625069 No Longer Active Adam Yates MD A ctive POTASSIUM CHLORIDE 20 MEQ ORAL PACKET by mouth twice a day prn 2 POTASSIUM CHLORIDE 91537804668 No Longer Active Adam Carpenter MD Active PROMETHAZINE HCL 25 MG ORAL TABLET 1 Q. 4 hr. PRN PROMETHAZINE HCL 01321716850 No Longer Active Adam Yates MD Active INNOPRAN XL 120 MG ORAL CAPSULE EXTENDED RELEASE 24 HO UR Take one by mouth daily PROPRANOLOL HCL SR BEADS 37516964681 No Longer Active Adam Yates MD Active FLAGYL 500 MG ORAL TABLET 1 pill by mouth three times daily, for diarrhea METRONIDAZOLE 83298949236 No Longer Active Hope landers MD PhD Active DYAZIDE 37.5-25 MG ORAL CAPSULE 1 qd TRIA MTERENE-HCTZ 06320033064 No Longer Active Hope Benavidez MD PhD Active PROZAC 20 MG ORAL CAPSULE 1 q d FLUOXETINE HCL 08095398502 No Longer Active Hope Benavidez MD PhD Active SIMVASTATIN 40 MG ORAL TABLET 1 qd SIMVAS TATIN 74763918709 No Longer Active Adam Yates MD Active MELOXICAM 15 MG ORAL TABLET 1 qd MELOXICAM 81197758466 No Longer Active Adam Yates MD Active EXCEDRIN EXTRA STRENGTH 250-250-65 MG ORAL TABLET 1-2 q6h MS N headache [id number] 37106767160 Active Hope Benavidez MD PhD Active FLAGYL 500 MG ORAL TABLET 1 qid METRONIDAZOL E 23006168854 No Longer Active Adam Yates MD Active LEVAQUIN 750 MG ORAL TABLET 1 qd LEVOFLOXAC IN 74003830618 No Longer Active Adam Yates MD Active ADULT ASPIRIN LOW STRENGTH 81 MG ORAL TABLET DISINTEGRATING 1 qd ASPIRIN 72777870030 Active Hope Benavidez MD PhD Active LEVAQUIN 750 MG ORAL TABLET 1 qd LEVAQUIN 750 MG ORAL TABLET 747367 LEVOFLOXACIN Inactive FLAGYL 500 MG ORAL TABLET 1 qid FLAGYL 500 MG ORAL TABLET 231744 METRONIDAZOLE Inactive MELOXICAM 15 MG ORAL TABLET 1 qd MELOXICAM 15 MG ORAL TABLET 888212 MELOXICAM Inactive SIMVASTATIN 40 MG ORAL TABLET 1 qd SIMVASTATIN 40 MG ORAL TABLET 206836 SIMVASTATIN Inactive PROZAC 20 MG ORAL CAPSULE 1 q d PROZAC 20 MG ORAL CAPSULE 617166 FLUOXETINE HCL Inactive DYAZIDE 37.5-25 MG ORAL CAPSULE 1 qd 5 DYAZIDE 37.5-25 MG ORAL CAPSULE 116064 TRIAMTERENE-HCTZ Inactive INNOPRAN XL 120 MG ORAL CAPSULE EXTENDED RELEASE 24 HO UR Take one by mouth daily INNOPRAN XL 120 MG ORAL CAPSULE EXTENDED RELEASE 24 HOUR PROPRANOLOL HCL SR BEADS Inactive PROMETHAZINE HCL 25 MG ORAL TABLET 1 Q. 4 hr. PRN 2013 PROMETHAZINE HCL 25 MG ORAL TABLET 979332 PROMETHAZINE HCL Inactive POTASSIUM CHLORIDE 20 MEQ ORAL PACKET by mouth twice a day prn 2 POTASSIUM CHLORIDE 20 MEQ ORAL PACKET 2162575 POTASSIUM CHLORIDE Inactive PHENADOZ 25 MG RECTAL SUPPOSITORY 1 every 4 hrs. PRN 2 PHENADOZ 25 MG RECTAL SUPPOSITORY 585024 PROMETHAZINE HCL Inactive ZOFRAN 8 MG ORAL TABLET 1 tab by mouth every 12 hours prn 4 ZOFRAN 8 MG ORAL TABLET 430926 ONDANSETRON HCL Inactive OMEPRAZOLE 20 MG ORAL CAPSULE DELAYED RELEASE 1 tablet by mo ut daily for GERD OMEPRAZOLE 20 MG ORAL CAPSULE DELAYED RELEASE 19 8051 OMEPRAZOLE Inactive CYCLOBENZAPRINE HCL 10 MG ORAL TABLET 1 tablet by mout h three times daily as needed for headaches CYCLOBENZAPRINE HCL 10 MG ORAL TABLET 135599 CYCLOBENZAPRINE HCL Inactive VITAMIN D3 4000 IU 1 tab 3 times daily VITAMIN D3 4000 IU Inactive PROPRANOLOL HCL 80 MG ORAL TABLET 1 tab tue. and thur. PROPRANOLOL HCL 80 MG ORAL TABLET 782011 PROPRANOLOL HCL Inacti ve CYANOCOBALAMIN 1000 MCG/ML INJECTION SOLUTION 1 injection ev ruben 2 weeks CYANOCOBALAMIN 1000 MCG/ML INJECTION SOLUTION 30 9594 CYANOCOBALAMIN Inactive MAGNESIUM GLUCONATE 250 MG ORAL TABLET 1 tab tid 23/10/23 MAGNESIUM GLUCONATE 250 MG ORAL TABLET 533668 MAGNESIUM GLUCONATE Inactive LOMOTIL 2.5-0.025 MG ORAL TABLET 1 tab by mouth prn 20 23/10/23 LOMOTIL 2.5-0.025 MG ORAL TABLET 3432605 DIPHENOXYLATE-ATROPINE Inac tive FLORANEX ORAL PACKET 1 pack three times daily, for bowel health FLORANEX ORAL PACKET 42339867866 LACTOBACILLUS Inactive IRON 325 (65 Fe) MG ORAL TABLET 1 every other day 2015 IRON 325 (65 Fe) MG ORAL TABLET 504900 FERROUS SULFATE Inactive FLAGYL 500 MG ORAL TABLET 1 pill by mouth three times daily, for diarrhea FLAGYL 500 MG ORAL TABLET 107594 METRONIDAZOLE I nactive BACTRIM DS 800-160 MG ORAL TABLET 1 pill by mouth twice claudio y, for UTI BACTRIM DS 800-160 MG ORAL TABLET 218947 SULFAMETHOXAZOLE-TRIMETHOPRIM Inactive Advance Directives Directive Description Start [...] ... - Chemistry sodium, serum 141 mmol/L 006-528 6021/01/10 potassium, serum 3.7 mmol/L 3.5-5.2 chloride, serum 101 mmol/L 98-107 carbon dioxide, venous blood 31.0 mmol/L 21.0-32 .0 blood glucose 96 mg/dL 65-95 calcium, serum 9.5 mg/dL 8.5-10.1 urea nitrogen, blood 21 mg/dL 7-18 creatinine, serum 1.40 mg/dL 0.60-1.30 Estimated Glomerular Filtration Rate (calc) 39 (?) mL/min/1.73m2 = OR > 60 mL/min cholesterol, serum 211 mg/dL 061-779 2986/01/10 triglyceride, serum, fasting 77 mg/dL 30-200 HDL [...] 0.82 ng/dL 0.59-1.17 sodium, serum 142 mmol/L 151-454 0607/04/16 carbon dioxide, venous blood 30.0 mmol/L 21.0-32 [...] - Chelle radha sodium, serum 142 mmol/L 771-002 2564/11/02 potassium, serum 3.4 mmol/L 3.5-5.2 chloride, serum [...] 0.59-1.17 Encounters Code Encounter Date Provider Facility CPT-84075 [id number] Vst-Est Level III 09:15:19 [facility] Level 4 Est. Patient 15:35:24 MEDICAL OFFICER PSYCHIATRY Adam Yates MD [facility] CPT-62446 Level 3 New Patient 12:08:54 MEDICAL OFFICER PSYCHIATRY Adam Yates MD [facility] CPT-77004 [id number] Vst-Est Level IV 19:48:30 MEDICAL OFFICER PSYCHIATRY Tracy Holt [facility] CPT-09485 [id number] Vst-Est Level III 14:29:19 CDT Fiorella Holt [facility] CPT-40388 Level 2 Est. Patient 14:58:26 CDT Kylie boyd [facility] CPT-67798 Level 3 Est. Patient 08:15:24 MEDICAL OFFICER PSYCHIATRY Kylie boyd [facility] CPT-30815 Level 2 Est. Patient 14:27:16 MEDICAL OFFICER PSYCHIATRY Kylie boyd [facility] CPT-91535 Level 3 Est. Patient 17:54:48 CDT Kylie boyd [facility] CPT-32439 Level 3 Est. Patient 16:26:30 CDT Kina blackmon [facility] CPT-81979 Level 3 New Patient 16:22:01 MEDICAL OFFICER PSYCHIATRY Adam Yates MD [facility] CPT-49261 Level 4 Est. Patient 17:00:48 CDT Kylie Lund [facility] CPT-44435 Level 3 Est. Patient 13:15:54 CDT Kylie Lund [facility] CPT-90599 Level 3 Est. Patient 09:10:11 CDT Kylie Lund [facility] CPT-61536 Level 4 Est. Patient 12:08:30 MEDICAL OFFICER PSYCHIATRY Hope cohn MD [facility] CPT-53648 Level 4 Est. Patient 19:08:42 MEDICAL OFFICER PSYCHIATRY Hope cohn MD [facility] CPT-86296 Level 4 Est. Patient 20:04:51 CDT Hope cohn MD PhD [facility] CPT-10171 Level 3 New Patient 01:46:11 MEDICAL OFFICER PSYCHIATRY Hope landers MD PhD [facility] Procedures Code Procedure Name Date Entry Date Standard Desc ription CPT-G0439 [facility] Annual Wellness Exam 09:15:19 CDT CPT-75100 Postop F/U Visit 15:45:41 CDT CPT-74367 Sono Soft Tissue Head and Neck - XRAY US E ONLY 11:56:06 MEDICAL OFFICER PSYCHIATRY CPT-64063 Abx/Therapy Injection 09:40:08 MEDICAL OFFICER PSYCHIATRY CPT-J0897 Prolia 60 mg 09:40:08 MEDICAL OFFICER PSYCHIATRY CPT-90599 First Vx - Ix admin for Medicare patients 02/08 10:02:45 CDT CPT-54298 Fluzone Quadrivalent Intramuscular Suspe nsion 0.5 ML 10:02:45 CDT CPT-76256 Magnesium - LAB USE ONLY 09:41:00 CDT 12/09 CPT-49290 Renal Panel - LAB USE ONLY 09:41:00 CDT 201 09/17/01 CPT-21611 Venipuncture Draw Fee 09:41:00 CDT CPT-88488 Calcium - LAB USE ONLY 17:25:11 CDT CPT-J0897 Prolia 60 mg 15:10:59 CDT CPT-57696 Abx/Therapy Injection 15:10:59 CDT CPT-G0439 Subsequent Annual Wellness Exam 14:29:19 CDT CPT-73978 Venipuncture Draw Fee 10:59:04 CDT CPT-73176 CMP - LAB USE ONLY 10:59:04 CDT CPT-68557 CBC with Diff - LAB USE ONLY 10:59:03 CDT 2 CPT-J0897 Prolia 60 mg 15:46:54 MEDICAL OFFICER PSYCHIATRY CPT-92494 Abx/Therapy Injection 15:46:54 MEDICAL OFFICER PSYCHIATRY CPT-70017 Microalbumin - LAB USE ONLY 09:41:32 MEDICAL OFFICER PSYCHIATRY 20 23/01/15 CPT-95199 Free T4 - LAB USE ONLY 09:41:32 MEDICAL OFFICER PSYCHIATRY CPT-34730 TSH - LAB USE ONLY 09:41:32 MEDICAL OFFICER PSYCHIATRY CPT-52642 BMP - LAB USE ONLY 09:41:32 MEDICAL OFFICER PSYCHIATRY CPT-32343 Venipuncture Draw Fee 09:41:32 MEDICAL OFFICER PSYCHIATRY CPT-90971 First Vx - Ix admin for Medicare patients 11:19:30 CDT CPT-63057 Fluzone High-Dose Intramuscular Suspension 12/07 11:19:30 CDT CPT-J0897 Prolia 60 mg 14:55:42 CDT CPT-75904 Abx/Therapy Injection 14:55:42 CDT CPT-00726 Bone Density - XRAY USE ONLY 10:27:12 CDT 2 CPT-G0439 Subsequent Annual Wellness Exam 17:54:53 CDT CPT-65168 Foot, left, comp min 3V - XRAY USE ONLY 12:22:49 CDT CPT-G0009 Administration of Pneumococcal Vaccine 3 12:18:00 CDT CPT-69289 Pneumovax 23 Injection Injectable 25 MCG /0.5ML 12:18:00 CDT CPT-J0897 Prolia 60 mg 14:14:16 MEDICAL OFFICER PSYCHIATRY CPT-83077 Abx/Therapy Injection 14:14:15 MEDICAL OFFICER PSYCHIATRY CPT-37124 Lipid - LAB USE ONLY 10:01:52 MEDICAL OFFICER PSYCHIATRY 2 CPT-53384 Calcium - LAB USE ONLY 10:01:51 MEDICAL OFFICER PSYCHIATRY CPT-98077 Venipuncture Draw Fee 10:01:51 MEDICAL OFFICER PSYCHIATRY CPT-LR Lesion Removal 16:22:01 MEDICAL OFFICER PSYCHIATRY CPT-40219 TSH - LAB USE ONLY 14:26:02 CDT CPT-56352 CMP - LAB USE ONLY 14:26:01 CDT CPT-64016 CBC with Diff - LAB USE ONLY 14:26:01 CDT 2 CPT-58041 Venipuncture Draw Fee 14:26:01 CDT CPT-06500 First Vx - Ix admin for Medicare patients 13:27:08 CDT CPT-65986 Fluzone High-Dose Intramuscular Suspension 11/26 13:27:08 CDT CPT-G0438 Initial Annual Wellness Exam 14:19:57 CD T CPT-G0009 Administration of Pneumococcal Vaccine 9 11:36:25 CDT CPT-18563 Prevnar 13 Intramuscular Suspension 1 1:36:25 CDT CPT-22862 Prevnar 13 Intramuscular Suspension 1 0:40:58 CDT CPT-J0897 Prolia 60 mg 10:37:16 CDT CPT-34784 Abx/Therapy Injection 10:37:16 CDT CPT-J0897 Prolia 60 mg 16:09:34 MEDICAL OFFICER PSYCHIATRY CPT-J0897 Prolia 60 mg 11:10:35 MEDICAL OFFICER PSYCHIATRY CPT-66823 Abx/Therapy Injection 11:10:35 MEDICAL OFFICER PSYCHIATRY CPT-000 Give Appropriate Flu Vaccine 17:01:15 MEDICAL OFFICER PSYCHIATRY 2 CPT-73444 Fluzone High Dose (65+) 15:03:08 MEDICAL OFFICER PSYCHIATRY 02/15 CPT-52901 Immunization Single Admin 15:03:08 MEDICAL OFFICER PSYCHIATRY 2014 CPT-OV Office Visit 15:58:06 CDT CPT-J0897 Prolia 60 mg 08:45:38 CDT CPT-46989 Abx/Therapy Injection 08:45:38 CDT CPT-J3420 Vitamin B12 1000mcg (Cyanocobalamin) 09:26:20 MEDICAL OFFICER PSYCHIATRY CPT-19253 Abx/Therapy Injection 09:26:20 MEDICAL OFFICER PSYCHIATRY CPT-J3420 Vitamin B12 1000mcg (Cyanocobalamin) 09:44:40 MEDICAL OFFICER PSYCHIATRY CPT-27494 Abx/Therapy Injection 09:44:40 MEDICAL OFFICER PSYCHIATRY CPT-J3420 Vitamin B12 1000mcg (Cyanocobalamin) 09:15:54 MEDICAL OFFICER PSYCHIATRY CPT-89471 Abx/Therapy Injection 09:15:54 MEDICAL OFFICER PSYCHIATRY CPT-J3420 Vitamin B12 1000mcg (Cyanocobalamin) 09:46:44 MEDICAL OFFICER PSYCHIATRY CPT-56461 Abx/Therapy Injection 09:46:44 MEDICAL OFFICER PSYCHIATRY CPT-J3420 Vitamin B12 1000mcg (Cyanocobalamin) 09:47:34 MEDICAL OFFICER PSYCHIATRY CPT-15458 Abx/Therapy Injection 09:47:34 MEDICAL OFFICER PSYCHIATRY CPT-J3420 Vitamin B12 1000mcg (Cyanocobalamin) 14:35:50 MEDICAL OFFICER PSYCHIATRY CPT-J3420 Vitamin B12 1000mcg (Cyanocobalamin) 09:25:05 MEDICAL OFFICER PSYCHIATRY CPT-34180 Abx/Therapy Injection 09:25:05 MEDICAL OFFICER PSYCHIATRY CPT-G0008 Administration of Influenza Virus Vaccine 13:36:47 CDT CPT-43899 Fluzone High-Dose Intramuscular Suspension 11/15 13:36:47 CDT CPT-J0897 Prolia 60 mg 08:50:41 CDT CPT-15857 Abx/Therapy Injection 08:50:41 CDT CPT-44991 Bone Density 12:06:12 CDT CPT-65200 Bone Density 08:54:40 CDT CPT-OV Office Visit 15:37:02 CDT CPT-95036 Postop F/U Visit 15:47:49 CDT CPT-36496 Postop F/U Visit 15:21:02 CDT CPT-TCMH Transitional Care Mgmt-High 07:52:27 CDT 20 20/06/01 CPT-30223 Venipuncture Draw Fee 13:51:18 CDT CPT-15290 Venipuncture Draw Fee 10:14:55 MEDICAL OFFICER PSYCHIATRY CPT-45544 Venipuncture Draw Fee 13:39:45 MEDICAL OFFICER PSYCHIATRY CPT-OV Office Visit 15:11:22 MEDICAL OFFICER PSYCHIATRY CPT-73307 Venipuncture Draw Fee 09:20:49 MEDICAL OFFICER PSYCHIATRY CPT-74978 Venipuncture Draw Fee 16:52:15 MEDICAL OFFICER PSYCHIATRY CPT-71687 Venipuncture Draw Fee 10:37:24 MEDICAL OFFICER PSYCHIATRY CPT-09086 Venipuncture Draw Fee 08:21:21 MEDICAL OFFICER PSYCHIATRY CPT-31330 Venipuncture Draw Fee 08:30:20 MEDICAL OFFICER PSYCHIATRY CPT-69291 Venipuncture Draw Fee 14:53:21 MEDICAL OFFICER PSYCHIATRY CPT-09125 Venipuncture Draw Fee 09:40:56 MEDICAL OFFICER PSYCHIATRY CPT-41720 Venipuncture Draw Fee 10:30:47 MEDICAL OFFICER PSYCHIATRY CPT-70025 Venipuncture Draw Fee 10:46:17 MEDICAL OFFICER PSYCHIATRY CPT-45786 Venipuncture Draw Fee 11:12:45 MEDICAL OFFICER PSYCHIATRY CPT-86257 Venipuncture Draw Fee 09:53:33 MEDICAL OFFICER PSYCHIATRY CPT-24071 Venipuncture Draw Fee 11:53:51 MEDICAL OFFICER PSYCHIATRY CPT-53375 Venipuncture Draw Fee 10:33:50 MEDICAL OFFICER PSYCHIATRY CPT-48812 Venipuncture Draw Fee 10:05:01 MEDICAL OFFICER PSYCHIATRY CPT-41655 Venipuncture Draw Fee 14:32:52 MEDICAL OFFICER PSYCHIATRY CPT-47844 Venipuncture Draw Fee 09:46:13 MEDICAL OFFICER PSYCHIATRY CPT-73238 Venipuncture Draw Fee 11:34:27 MEDICAL OFFICER PSYCHIATRY CPT-90236 Venipuncture Draw Fee 13:17:16 MEDICAL OFFICER PSYCHIATRY CPT-17546 Venipuncture Draw Fee 12:05:39 CDT CPT-21929 Venipuncture Draw Fee 12:49:12 CDT CPT-89079 Venipuncture Draw Fee 12:37:18 CDT CPT-25294 Venipuncture Draw Fee 10:57:11 CDT CPT-72203 Venipuncture Draw Fee 13:47:40 CDT CPT-27554 Venipuncture Draw Fee 10:02:17 CDT CPT-09334 TB Tubersol 17:32:32 CDT CPT-OV Office Visit 16:21:53 CDT CPT-OV Office Visit 15:49:22 CDT CPT-OV Office Visit 17:16:31 CDT CPT-OV Office Visit 10:43:31 CDT
--- OUTSIDE RECORDS SUMMARY | 2019-02-09 11:49 | XMS REPORT | Clinical Summary ---
Author Author Renaldo, Florecita Munoz Organization [facility] [employer] Address Unknown Phone Unavailable Allergies, Adverse Reactions, [...] PhD Hyperpotassemia GERD 530.81 Resolved Kylie Yokum [employer]QUE[employer] NAT[employer] G[employer] OPERATOR Esophageal reflux Health maintenance exam V70.0 Resolved Adolfo Yates MD Routine general medical examination at a health care facility Anemia 285.9 Resolved Kylie Yanet [employer]QUE[employer] NAT[employer] G[employer] OPERATOR Anemia, unspecified Personal history of malignant neoplasm of large intestine V10.05 Active Adam Yates MD Personal history of malignant neoplasm of large intestine Hypomagnesemia 275.2 Resolved Kylie Yanet [employer]QUEFIED NATURAL GAS OPERATOR Disorders of magnesium metabolism Weakness 780.79 Resolved [...] Sebaceous cyst, scalp 706.2 Resolved Kylie Yokum LIQUE[employer]ED NATURAL GAS OPERATOR Sebaceous cyst Cervical lymphadenopathy, anterior, left 785.6 Resolv ed Kylie Yokum [employer]QUEFIED NATURAL GAS OPERATOR Enlargement of lymph nodes Need for prophylactic vaccination and inoculation against in fluenza V04.81 Resolved Adam Yates MD Need for prophylactic vaccination and inoculation against influenza Preventive health care V70.0 Resolved Kylie Lundu m [employer]QUEFIED NATURAL GAS OPERATOR Routine general medical examination at a health care facility Thyroid nodule, left 241.0 Resolved Selena Yates MD Nontoxic uninodular goiter Screening mammogram V76.12 Resolved Kylie Yokum A PRN Other screening mammogram Mandy 706.2 Resolved Kylie Yokum [employer]QUE[employer]ED NAT[employer] G[employer] OPERATOR Sebaceous cyst Colon cancer, ascending 153.6 Resolved Kylie Yok um LIQUEFIED NATURAL GAS OPERATOR Malignant neoplasm of ascending colon Foot pain, left 729.5 Resolved Kylie Yokum LIQUEFIED NATURAL GAS OPERATOR Pain in limb Splinter 919.6 Resolved Kylie Yokum LIQUEFIED NATURAL GAS OPERATOR Superficial foreign body (splinter) of other, multiple, and unspecified sites, without major open wound and without mention of infection Rash 782.1 Resolved Kylie Yokum LIQUEFIED NATURAL GAS OPERATOR Rash and other nonspecific skin eruption Cyst 706.2 Resolved Kylie Yokum LIQUEFIED NATURAL GAS OPERATOR Sebaceous cyst Body Mass Index 23.0-23.9 Adult Refinement 2017 Kylie Yokum LIQUEFIED NATURAL GAS OPERATOR Body Mass Index between 19-24, adult BMI [...] kidney disease, stage 2 (Mild) 585.2 Active Kylei Holt APRN Chronic kidney disease, Stage II [...] MD Malignant neoplasm of thy roid gland ABDOMINAL PAIN, RIGHT LOWER QUADRANT ICD-789.03 Inactive Kina Joshua APRN ADENOCARCINOMA, COLON, 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 Dick Yates MD ABDOMINAL PAIN, GENERALIZED ICD-789.07 Inactive Hope Benavidez MD PhD FEVER UNSPECIFIED ICD-780.60 Inactive Hope cohn MD PhD UNSPECIFIED VENOUS INSUFFICIENCY ICD-459.81 [place] ctive Adam Yates MD ADENOCARCINOMA, 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 Inac tive Hope Benavidez MD PhD Hyperkalemia ICD-276.7 Inactive Hope Benavidez MD PhD GERD ICD-530.81 Inactive Kylie Holt LIQUEFIED NATURAL GAS OPERATOR 2015 Health maintenance exam ICD-V70.0 Bam Yates MD Anemia ICD-285.9 Inactive Kylie Holt LIQUEFIED NATURAL GAS OPERATOR 07/24 Hypomagnesemia ICD-275.2 Inactive Kylie Holt LIQUEFIED NATURAL GAS OPERATOR Weakness ICD-780.79 Inactive Hope Benavidez MD P [...] cyst, scalp ICD-706.2 Inactive Tracy hi Yokum LIQUEFIED NATURAL GAS OPERATOR Cervical lymphadenopathy, anterior, left ICD-785.6 Inactive Kylie Yokum LIQUEFIED NATURAL GAS OPERATOR Need for prophylactic vaccination and inoculation against in fluenza ICD-V04.81 Inactive Adam Yates MD Preventive health care ICD-V70.0 Inactive Ka thi Yokum LIQUEFIED NATURAL GAS OPERATOR Thyroid nodule, left ICD-241.0 Inactive Selena Yates MD Screening mammogram ICD-V76.12 Inactive Kylie Yokum LIQUEFIED NATURAL GAS OPERATOR Mandy ICD-706.2 Inactive Kylie Yokum LIQUEFIED NATURAL GAS OPERATOR 07/20 Colon cancer, ascending ICD-153.6 Inactive K athi Yokum LIQUEFIED NATURAL GAS OPERATOR Foot pain, left ICD-729.5 Inactive Kylie Yokum LIQUEFIED NATURAL GAS OPERATOR Splinter ICD-919.6 Inactive Kylie Yokum LIQUEFIED NATURAL GAS OPERATOR 2017 Rash ICD-782.1 Inactive Kylie Yokum LIQUEFIED NATURAL GAS OPERATOR 07/25 Cyst ICD-706.2 Inactive Kylie Yokum LIQUEFIED NATURAL GAS OPERATOR 08/11 Unspecified fall, initial encounter ICD-E888.9 Inactive Kylie Yokum LIQUEFIED NATURAL GAS OPERATOR Eye pain, left ICD-379.91 Inactive Kylie Yokum LIQUEFIED NATURAL GAS OPERATOR Pharyngitis, acute ICD-074.0 Inactive Kavin Yates MD Hypomagnesemia ICD-275.2 Inactive Adam Franklin MD Hypokalemia ICD-276.8 Inactive Adam enamorado MD Enlarged thyroid ICD-240.9 Inactive Adam Yates MD Underweight Inactive LETY Nation 05/17 Follicular adenoma, thyroid ICD-226 Inactive Adam Yates MD Medication List Medication Instructions Start Date Stop Date Generic Name NDC Status Provider Patient Instruction VOLTAREN 1 % TRANSDERMAL GEL apply 2 grams q 6-8 hour to left arm as needed for pain DICLOFENAC SODIUM 61558840881 Active Kylie Holt APR N Active IMODIUM A-D 2 MG ORAL TABLET 1 tablet twice a day LOPERAMIDE HCL 76382169524 Active Kylie Holt APRN Active COQ10 100 MG ORAL CAPSULE 1 daily COENZYME Q10 211697 09679 Active Fay Alberts [facility] Active VITAMIN D3 2000 UNIT ORAL CAPSULE Melaleuca-One daily CHOLECALCIFEROL 17553491287 Active Kylie Holt APRN Active PROBIOTIC DAILY ORAL CAPSULE Take one daily PROBIO TIC PRODUCT 41469047749 Active Kylie Lundum AMY Active IRON 325 (65 Fe) MG ORAL TABLET 1 every other day FERROUS SULFATE 47254976567 No Longer Active Kylie Lundum AMY Active FLORANEX ORAL PACKET 1 pack three times daily, for bowel health LACTOBACILLUS 41740178917 No Longer Active Kylie Lundum AMY Active LOMOTIL 2.5-0.025 MG ORAL TABLET 1 tab by mouth prn 23/10/23 DIPHENOXYLATE-ATROPINE 43697185586 No Longer Active Kylie Lundum [employer]QUEFIED NATURAL GAS OPERATOR Active MAGNESIUM GLUCONATE 250 MG ORAL TABLET 1 tab tid 23/10/23 MAGNESIUM GLUCONATE 25361541294 No Longer Active Kylie Lundum LIQUEFIED NATURAL GAS OPERATOR Active CYANOCOBALAMIN 1000 MCG/ML INJECTION SOLUTION 1 injection ev ruben 2 weeks CYANOCOBALAMIN 98512665852 No Longer Active Kylie boyd [employer]QUEFIED NATURAL GAS OPERATOR Active ATENOLOL 25 MG ORAL TABLET 1/2 pill by mouth daily, fo r headaches, blood pressure ATENOLOL 90056301266 Active Kylie Holt LIQUEFIED NATURAL GAS OPERATOR Active PROPRANOLOL HCL 80 MG ORAL TABLET 1 tab tue. and thur. PROPRANOLOL HCL 81920726572 No Longer Active Hope Benavidez MD PhD A ctive VITAMIN D3 4000 IU 1 tab 3 times daily VITAMIN D3 4000 IU No Longer Active Hope Benavidez MD PhD Active BACTRIM DS 800-160 MG ORAL TABLET 1 pill by mouth twice claudio y, for UTI SULFAMETHOXAZOLE-TRIMETHOPRIM 60689227707 No Longer Active Hope Benavidez MD PhD Active PROLIA 60 MG/ML SUBCUTANEOUS SOLUTION 1 shot every 6 months for osteoprosis DENOSUMAB 91352102937 Active Hope Benavidez MD PhD Active CALCIUM + D + K 750-500-40 MG-UNT-MCG ORAL TABLET 1 tab by m out twice daily CALCIUM-VITAMIN D-VITAMIN K 60830032919 Active Hope valdez MD PhD Active DAILY VALUE MULTIVITAMIN ORAL TABLET 1 tab by mouth twice daily 201 05/16/14 MULTIPLE VITAMIN 16216659587 Active Hope Benavidez MD PhD Acti ve FISH OIL 306 MG CAPS 1 tab by mouth three times daily OMEGA-3 FATTY ACIDS 94796930612 Active Hope Benavidez MD PhD Active LUTEIN 10 MG ORAL TABLET 1 tab daily LUTEIN 90954751 408 Active Hope Benavidez MD PhD Active TRIAMTERENE-HCTZ 37.5-25 MG ORAL TABLET 1 tab by mouth daily 10/22 TRIAMTERENE-HCTZ 20507026271 Active Kylieshubham Lundoliver LIQUEFIED NATURAL GAS OPERATOR Active CYCLOBENZAPRINE HCL 10 MG ORAL TABLET 1 tablet by mout h three times daily as needed for headaches CYCLOBENZAPRINE HCL 58808017585 No Longer Active Adam Yates MD Active OMEPRAZOLE 20 MG ORAL CAPSULE DELAYED RELEASE 1 tablet by mo uth daily for GERD OMEPRAZOLE 49358208790 No Longer Active Adam Yates MD Active ZOFRAN 8 MG ORAL TABLET 1 tab by mouth every 12 hours prn 4 ONDANSETRON HCL 62319308230 No Longer Active Adam Yates MD Active PHENADOZ 25 MG RECTAL SUPPOSITORY 1 every 4 hrs. PRN 2 PROMETHAZINE HCL 72965367685 No Longer Active Adam Yates MD A ctive POTASSIUM CHLORIDE 20 MEQ ORAL PACKET by mouth twice a day prn 2 POTASSIUM CHLORIDE 09780423183 No Longer Active Adam Carpenter MD Active PROMETHAZINE HCL 25 MG ORAL TABLET 1 Q. 4 hr. PRN PROMETHAZINE HCL 69016443661 No Longer Active Adam Yates MD Active INNOPRAN XL 120 MG ORAL CAPSULE EXTENDED RELEASE 24 HO UR Take one by mouth daily PROPRANOLOL HCL SR BEADS 55154844186 No Longer Active Adam Yates MD Active FLAGYL 500 MG ORAL TABLET 1 pill by mouth three times daily, for diarrhea METRONIDAZOLE 08537921023 No Longer Active Hope landers MD PhD Active DYAZIDE 37.5-25 MG ORAL CAPSULE 1 qd TRIA MTERENE-HCTZ 11874636984 No Longer Active Hope Benavidez MD PhD Active PROZAC 20 MG ORAL CAPSULE 1 q d FLUOXETINE HCL 44045845422 No Longer Active Hope Benavidez MD PhD Active SIMVASTATIN 40 MG ORAL TABLET 1 qd SIMVAS TATIN 25065829592 No Longer Active Adam Yates MD Active MELOXICAM 15 MG ORAL TABLET 1 qd MELOXICAM 57669564674 No Longer Active Adam Yates MD Active EXCEDRIN EXTRA STRENGTH 250-250-65 MG ORAL TABLET 1-2 q6h NE N headache [id number]-[id number] 20199245644 Active Hope Benavidez MD PhD Active FLAGYL 500 MG ORAL TABLET 1 qid METRONIDAZOL E 33983544471 No Longer Active Adam Yates MD Active LEVAQUIN 750 MG ORAL TABLET 1 qd LEVOFLOXAC IN 92505029107 No Longer Active Adam Yates MD Active ADULT ASPIRIN LOW STRENGTH 81 MG ORAL TABLET DISINTEGRATING 1 qd ASPIRIN 72203819963 Active Hope Benavidez MD PhD Active LEVAQUIN 750 MG ORAL TABLET 1 qd LEVAQUIN 750 MG ORAL TABLET 677592 LEVOFLOXACIN Inactive FLAGYL 500 MG ORAL TABLET 1 qid FLAGYL 500 MG ORAL TABLET 914278 METRONIDAZOLE Inactive MELOXICAM 15 MG ORAL TABLET 1 qd MELOXICAM 15 MG ORAL TABLET 215725 MELOXICAM Inactive SIMVASTATIN 40 MG ORAL TABLET 1 qd SIMVASTATIN 40 MG ORAL TABLET 499634 SIMVASTATIN Inactive PROZAC 20 MG ORAL CAPSULE 1 q d PROZAC 20 MG ORAL CAPSULE 596618 FLUOXETINE HCL Inactive DYAZIDE 37.5-25 MG ORAL CAPSULE 1 qd 5 DYAZIDE 37.5-25 MG ORAL CAPSULE 503671 TRIAMTERENE-HCTZ Inactive INNOPRAN XL 120 MG ORAL CAPSULE EXTENDED RELEASE 24 HO UR Take one by mouth daily INNOPRAN XL 120 MG ORAL CAPSULE EXTENDED RELEASE 24 HOUR PROPRANOLOL HCL SR BEADS Inactive PROMETHAZINE HCL 25 MG ORAL TABLET 1 Q. 4 hr. PRN 2013 PROMETHAZINE HCL 25 MG ORAL TABLET 877284 PROMETHAZINE HCL Inactive POTASSIUM CHLORIDE 20 MEQ ORAL PACKET by mouth twice a day prn 2 POTASSIUM CHLORIDE 20 MEQ ORAL PACKET 1125923 POTASSIUM CHLORIDE Inactive PHENADOZ 25 MG RECTAL SUPPOSITORY 1 every 4 hrs. PRN 2 PHENADOZ 25 MG RECTAL SUPPOSITORY 200951 PROMETHAZINE HCL Inactive ZOFRAN 8 MG ORAL TABLET 1 tab by mouth every 12 hours prn 4 ZOFRAN 8 MG ORAL TABLET 477833 ONDANSETRON HCL Inactive OMEPRAZOLE 20 MG ORAL CAPSULE DELAYED RELEASE 1 tablet by [facility] daily for GERD OMEPRAZOLE 20 MG ORAL CAPSULE DELAYED RELEASE 19 8051 OMEPRAZOLE Inactive CYCLOBENZAPRINE HCL 10 MG ORAL TABLET 1 tablet by mout h three times daily as needed for headaches CYCLOBENZAPRINE HCL 10 MG ORAL TABLET 107203 CYCLOBENZAPRINE HCL Inactive VITAMIN D3 4000 IU 1 tab 3 times daily VITAMIN D3 4000 IU Inactive PROPRANOLOL HCL 80 MG ORAL TABLET 1 tab tue. and thur. PROPRANOLOL HCL 80 MG ORAL TABLET 146359 PROPRANOLOL HCL Inacti ve CYANOCOBALAMIN 1000 MCG/ML INJECTION SOLUTION 1 injection ev ruben 2 weeks CYANOCOBALAMIN 1000 MCG/ML INJECTION SOLUTION 30 9594 CYANOCOBALAMIN Inactive MAGNESIUM GLUCONATE 250 MG ORAL TABLET 1 tab tid 23/10/23 MAGNESIUM GLUCONATE 250 MG ORAL TABLET 081140 MAGNESIUM GLUCONATE Inactive LOMOTIL 2.5-0.025 MG ORAL TABLET 1 tab by mouth prn 23/10/23 LOMOTIL 2.5-0.025 MG ORAL TABLET 3002934 DIPHENOXYLATE-ATROPINE Inac tive FLORANEX ORAL PACKET 1 pack three times daily, for bowel health FLORANEX ORAL PACKET 32550335819 LACTOBACILLUS Inactive IRON 325 (65 Fe) MG ORAL TABLET 1 every other day 2015 IRON 325 (65 Fe) MG ORAL TABLET 503531 FERROUS SULFATE Inactive FLAGYL 500 MG ORAL TABLET 1 pill by mouth three times daily, for diarrhea FLAGYL 500 MG ORAL TABLET 535914 METRONIDAZOLE I nactive BACTRIM DS 800-160 MG ORAL TABLET 1 pill by mouth twice claudio y, for UTI BACTRIM DS 800-160 MG ORAL TABLET 248429 SULFAMETHOXAZOLE-TRIMETHOPRIM Inactive Advance Directives Directive Description Start [...] Description blood pressure, diastolic, repeated by physician 71 [...] dobson blood pressure, diastolic 75 mm[Hg] BP dboson blood pressure, systolic, repeated by physician 129 [...] d blood pressure, diastolic, repeated by physician 60 BP dobson blood pressure, diastolic 60 mm[Hg] BP dobson blood pressure, systolic, repeated by physician 128 BP sys blood pressure, systolic 128 mm[Hg] BP sys height E&M 63 [in_us] Bdy height pulse rate E&M 58 /min Heart rate temperature E&M 97.5 [degF] Body temp erature weight E&M 133 [lb_av] Weight Measure d blood pressure, diastolic 56 mm[Hg] BP dobson blood pressure, systolic 127 mm[Hg] BP sys height E&M 63 [in_us] Bdy height pulse rate E&M 59 /min Heart rate temperature E&M 98.3 [degF] Body temp erature weight E&M 134.31 [lb_av] Weight Measure d Diagnostic Results Date [...] ... - Chemistry sodium, serum 141 mmol/L 147-278 8413/01/10 potassium, serum 3.7 mmol/L 3.5-5.2 chloride, serum 101 mmol/L 98-107 carbon dioxide, venous blood 31.0 mmol/L 21.0-32 .0 blood glucose 96 mg/dL 65-95 calcium, serum 9.5 mg/dL 8.5-10.1 urea nitrogen, blood 21 mg/dL 7-18 creatinine, serum 1.40 mg/dL 0.60-1.30 Estimated Glomerular Filtration Rate (calc) 39 (?) mL/min/1.73m2 = OR > 60 mL/min cholesterol, serum 211 mg/dL 084-847 3776/01/10 triglyceride, serum, fasting 77 mg/dL 30-200 HDL [...] ... - Chemistry sodium, serum 142 mmol/L 629-473 1534/04/16 carbon dioxide, venous blood 30.0 mmol/L 21.0-32 [...] - Chelle radha sodium, serum 142 mmol/L 283-714 1380/11/02 potassium, serum 3.4 mmol/L 3.5-5.2 chloride, serum [...] 0.36-3.74 thyroxine, serum, free 0.47 ng/dL 0.59-1.17 Office Visit: [facility] - SUB - Basic LDL target level 130 mg/dL Office Visit: [facility] - SUB - Chemistry HDL cholesterol, serum, target level 40 mg/dL cholesterol, target level 200 mg/dL triglyceride, target level 150 mg/dL Encounters Code Encounter Date Provider Facility CPT-06062 Level 4 Est. Patient 15:35:24 SPINNER FRAME Adam Yates MD [facility] CPT-87143 Level 3 New Patient 12:08:54 SPINNER FRAME Adam Yates MD [facility] CPT-80660 [id number] Vst-Est Level IV 19:48:30 SPINNER FRAME Tracy Holt [facility] CPT-40321 [id number] Vst-Est Level III 14:29:19 CDT Fiorella Holt [facility] CPT-47759 Level 2 Est. Patient 14:58:26 CDT Kylie boyd [facility] CPT-44800 Level 3 Est. Patient 08:15:24 SPINNER FRAME Kylie boyd [facility] CPT-08436 Level 2 Est. Patient 14:27:16 SPINNER FRAME [facility] CPT-66158 Level 3 Est. Patient 17:54:48 CDT Kylie boyd [facility] CPT-28826 Level 3 Est. Patient 16:26:30 CDT Kina blackmon [facility] CPT-88951 Level 3 New Patient 16:22:01 SPINNER FRAME Adam Yates MD [facility] CPT-79514 Level 4 Est. Patient 17:00:48 CDT Kylie boyd [facility] CPT-45828 Level 3 Est. Patient 13:15:54 CDT Kylie boyd [facility] CPT-72390 Level 3 Est. Patient 09:10:11 CDT Kylie Lund [facility] CPT-30239 Level 4 Est. Patient 12:08:30 SPINNER FRAME Hope cohn MD [facility] CPT-10537 Level 4 Est. Patient 19:08:42 SPINNER FRAME Hope cohn MD PhD [facility] CPT-41268 Level 4 Est. Patient 20:04:51 CDT Hope cohn MD PhD [facility] CPT-81799 Level 3 New Patient 01:46:11 SPINNER FRAME Hope landers MD PhD [facility] Procedures Code Procedure Name Date Entry Date Standard Desc ription CPT-88759 Postop F/U Visit 15:45:41 CDT CPT-20571 Sono Soft Tissue Head and Neck - XRAY US E ONLY 11:56:06 SPINNER FRAME CPT-90031 Abx/Therapy Injection 09:40:08 SPINNER FRAME CPT-J0897 Prolia 60 mg 09:40:08 SPINNER FRAME CPT-88547 First Vx - Ix admin for Medicare patients 02/08 10:02:45 CDT CPT-81491 Fluzone Quadrivalent Intramuscular Suspe nsion 0.5 ML 10:02:45 CDT CPT-43204 Magnesium - LAB USE ONLY 09:41:00 CDT 12/09 CPT-40075 Renal Panel - LAB USE ONLY 09:41:00 CDT 201 09/17/01 CPT-68939 Venipuncture Draw Fee 09:41:00 CDT CPT-81402 Calcium - LAB USE ONLY 17:25:11 CDT CPT-J0897 Prolia 60 mg 15:10:59 CDT CPT-04070 Abx/Therapy Injection 15:10:59 CDT CPT-G0439 [facility] Annual Wellness Exam 14:29:19 CDT CPT-51785 Venipuncture Draw Fee 10:59:04 CDT CPT-85852 CMP - LAB USE ONLY 10:59:04 CDT CPT-29184 CBC with Diff - LAB USE ONLY 10:59:03 CDT 2 CPT-J0897 Prolia 60 mg 15:46:54 SPINNER FRAME CPT-98516 Abx/Therapy Injection 15:46:54 SPINNER FRAME CPT-92216 Microalbumin - LAB USE ONLY 09:41:32 SPINNER FRAME 20 23/01/15 CPT-80683 Free T4 - LAB USE ONLY 09:41:32 SPINNER FRAME CPT-30462 TSH - LAB USE ONLY 09:41:32 SPINNER FRAME CPT-51110 BMP - LAB USE ONLY 09:41:32 SPINNER FRAME CPT-92953 Venipuncture Draw Fee 09:41:32 SPINNER FRAME CPT-98229 First Vx - Ix admin for Medicare patients 11:19:30 CDT CPT-07915 Fluzone High-Dose Intramuscular Suspension 12/07 11:19:30 CDT CPT-J0897 Prolia 60 mg 14:55:42 CDT CPT-82920 Abx/Therapy Injection 14:55:42 CDT CPT-57918 Bone Density - XRAY USE ONLY 10:27:12 CDT 2 CPT-G0439 Subsequent Annual Wellness Exam 17:54:53 CDT CPT-69203 Foot, left, comp min 3V - XRAY USE ONLY 12:22:49 CDT CPT-G0009 Administration of Pneumococcal Vaccine 3 12:18:00 CDT CPT-78572 Pneumovax 23 Injection Injectable 25 MCG /0.5ML 12:18:00 CDT CPT-J0897 Prolia 60 mg 14:14:16 SPINNER FRAME CPT-78592 Abx/Therapy Injection 14:14:15 SPINNER FRAME CPT-93417 Lipid - LAB USE ONLY 10:01:52 SPINNER FRAME 2 CPT-80376 Calcium - LAB USE ONLY 10:01:51 SPINNER FRAME CPT-71061 Venipuncture Draw Fee 10:01:51 SPINNER FRAME CPT-LR Lesion Removal 16:22:01 SPINNER FRAME CPT-63471 TSH - LAB USE ONLY 14:26:02 CDT CPT-35623 CMP - LAB USE ONLY 14:26:01 CDT CPT-40575 CBC with Diff - LAB USE ONLY 14:26:01 CDT 2 CPT-68213 Venipuncture Draw Fee 14:26:01 CDT CPT-52226 First Vx - Ix admin for Medicare patients 13:27:08 CDT CPT-10394 Fluzone High-Dose Intramuscular Suspension 11/26 13:27:08 CDT CPT-G0438 Initial Annual Wellness Exam 14:19:57 CD T CPT-G0009 Administration of Pneumococcal Vaccine 9 11:36:25 CDT CPT-13218 Prevnar 13 Intramuscular Suspension 1 1:36:25 CDT CPT-77770 Prevnar 13 Intramuscular Suspension 1 0:40:58 CDT CPT-J0897 Prolia 60 mg 10:37:16 CDT CPT-19425 Abx/Therapy Injection 10:37:16 CDT CPT-J0897 Prolia 60 mg 16:09:34 SPINNER FRAME CPT-J0897 Prolia 60 mg 11:10:35 SPINNER FRAME CPT-61726 Abx/Therapy Injection 11:10:35 SPINNER FRAME CPT-000 Give Appropriate Flu Vaccine 17:01:15 SPINNER FRAME 2 CPT-83055 Fluzone High Dose (65+) 15:03:08 SPINNER FRAME 02/15 CPT-50881 Immunization Single Admin 15:03:08 SPINNER FRAME 2014 CPT-OV Office Visit 15:58:06 CDT CPT-J0897 Prolia 60 mg 08:45:38 CDT CPT-14461 Abx/Therapy Injection 08:45:38 CDT CPT-J3420 Vitamin B12 1000mcg (Cyanocobalamin) 09:26:20 SPINNER FRAME CPT-05874 Abx/Therapy Injection 09:26:20 SPINNER FRAME CPT-J3420 Vitamin B12 1000mcg (Cyanocobalamin) 09:44:40 SPINNER FRAME CPT-70660 Abx/Therapy Injection 09:44:40 SPINNER FRAME CPT-J3420 Vitamin B12 1000mcg (Cyanocobalamin) 09:15:54 SPINNER FRAME CPT-33550 Abx/Therapy Injection 09:15:54 SPINNER FRAME CPT-J3420 Vitamin B12 1000mcg (Cyanocobalamin) 09:46:44 SPINNER FRAME CPT-29751 Abx/Therapy Injection 09:46:44 SPINNER FRAME CPT-J3420 Vitamin B12 1000mcg (Cyanocobalamin) 09:47:34 SPINNER FRAME CPT-65370 Abx/Therapy Injection 09:47:34 SPINNER FRAME CPT-J3420 Vitamin B12 1000mcg (Cyanocobalamin) 14:35:50 SPINNER FRAME CPT-J3420 Vitamin B12 1000mcg (Cyanocobalamin) 09:25:05 SPINNER FRAME CPT-84850 Abx/Therapy Injection 09:25:05 SPINNER FRAME CPT-G0008 Administration of Influenza Virus Vaccine 13:36:47 CDT CPT-06404 Fluzone High-Dose Intramuscular Suspension 11/15 13:36:47 CDT CPT-J0897 Prolia 60 mg 08:50:41 CDT CPT-32251 Abx/Therapy Injection 08:50:41 CDT CPT-42043 Bone Density 12:06:12 CDT CPT-09371 Bone Density 08:54:40 CDT CPT-OV Office Visit 15:37:02 CDT CPT-39564 Postop F/U Visit 15:47:49 CDT CPT-68217 Postop F/U Visit 15:21:02 CDT CPT-TCMH Transitional Care Mgmt-High 07:52:27 CDT 20 20/06/01 CPT-86804 Venipuncture Draw Fee 13:51:18 CDT CPT-86201 Venipuncture Draw Fee 10:14:55 SPINNER FRAME CPT-80191 Venipuncture Draw Fee 13:39:45 SPINNER FRAME CPT-OV Office Visit 15:11:22 SPINNER FRAME CPT-02746 Venipuncture Draw Fee 09:20:49 SPINNER FRAME CPT-74079 Venipuncture Draw Fee 16:52:15 SPINNER FRAME CPT-93923 Venipuncture Draw Fee 10:37:24 SPINNER FRAME CPT-01071 Venipuncture Draw Fee 08:21:21 SPINNER FRAME CPT-44570 Venipuncture Draw Fee 08:30:20 SPINNER FRAME CPT-53991 Venipuncture Draw Fee 14:53:21 SPINNER FRAME CPT-50640 Venipuncture Draw Fee 09:40:56 SPINNER FRAME CPT-78464 Venipuncture Draw Fee 10:30:47 SPINNER FRAME CPT-08788 Venipuncture Draw Fee 10:46:17 SPINNER FRAME CPT-68182 Venipuncture Draw Fee 11:12:45 SPINNER FRAME CPT-53917 Venipuncture Draw Fee 09:53:33 SPINNER FRAME CPT-41473 Venipuncture Draw Fee 11:53:51 SPINNER FRAME CPT-07356 Venipuncture Draw Fee 10:33:50 SPINNER FRAME CPT-89599 Venipuncture Draw Fee 10:05:01 SPINNER FRAME CPT-36998 Venipuncture Draw Fee 14:32:52 SPINNER FRAME CPT-25568 Venipuncture Draw Fee 09:46:13 SPINNER FRAME CPT-32423 Venipuncture Draw Fee 11:34:27 SPINNER FRAME CPT-88772 Venipuncture Draw Fee 13:17:16 SPINNER FRAME CPT-53283 Venipuncture Draw Fee 12:05:39 CDT CPT-55728 Venipuncture Draw Fee 12:49:12 CDT CPT-61357 Venipuncture Draw Fee 12:37:18 CDT CPT-62435 Venipuncture Draw Fee 10:57:11 CDT CPT-47176 Venipuncture Draw Fee 13:47:40 CDT CPT-64133 Venipuncture Draw Fee 10:02:17 CDT CPT-83641 TB Tubersol 17:32:32 CDT CPT-OV Office Visit 16:21:53 CDT CPT-OV Office Visit 15:49:22 CDT CPT-OV Office Visit 17:16:31 CDT CPT-OV Office Visit 10:43:31 CDT
--- OUTSIDE RECORDS SUMMARY | 2019-02-09 11:49 | XMS REPORT | Clinical Summary ---
Author Author Admin, Florecita Munoz Organization [facility] Address Unknown Phone Unavailable Allergies, Adverse Reactions, [...] Sebaceous cyst, scalp 706.2 Resolved Kylie Yokum STONE GLUER Sebaceous cyst Cervical lymphadenopathy, anterior, left 785.6 Resolv ed Kylie Yokum STONE GLUER Enlargement of lymph nodes Need for prophylactic vaccination and inoculation against in fluenza V04.81 Resolved Adam Yates MD Need for prophylactic vaccination and inoculation against influenza Preventive health care V70.0 Resolved Kylie Lundu m STONE GLUER Routine general medical examination at a health care facility Thyroid nodule, left 241.0 Resolved Selena Yates MD Nontoxic uninodular goiter Screening mammogram V76.12 Resolved Kylie Yokum A PRN Other screening mammogram Mandy 706.2 Resolved Kylie Yokum STONE GLUER Sebaceous cyst Colon cancer, ascending 153.6 Resolved Kylie Yok um STONE GLUER Malignant neoplasm of ascending colon Foot pain, left 729.5 Resolved Kylie Yokum STONE GLUER Pain in limb Splinter 919.6 Resolved Kylie Yokum STONE GLUER Superficial foreign body (splinter) of other, multiple, and unspecified sites, without major open wound and without mention of infection Rash 782.1 Resolved Kylie Yokum STONE GLUER Rash and other nonspecific skin eruption Cyst 706.2 Resolved Kylie Yokum STONE GLUER Sebaceous cyst Body Mass Index 23.0-23.9 Adult Refinement 2017 Kylie Yokum STONE GLUER Body Mass Index between 19-24, adult BMI [...] RIGHT LOWER QUADRANT ICD-789.03 Inactive Kina Joshua STONE GLUER UNSPECIFIED VENOUS INSUFFICIENCY ICD-459.81 [place] ctive Adam Yates MD ADENOCARCINOMA, 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 Inac tive Hope Benavidez MD PhD Hyperkalemia ICD-276.7 Inactive Hope Benavidez MD PhD GERD ICD-530.81 Inactive Kylie Escalonapari STONE GLUER 2015 Health maintenance exam ICD-V70.0 Bam Yates MD Anemia ICD-285.9 Inactive Kylie Yanet STONE GLUER 07/24 Hypomagnesemia ICD-275.2 Inactive Kylie Holt STONE GLUER ABDOMINAL PAIN, GENERALIZED ICD-789.07 Inactive Hope Benavidez MD PhD FEVER UNSPECIFIED ICD-780.60 Inactive Hope cohn MD PhD Weakness ICD-780.79 Inactive Hope Benavidez [...] lymphadenopathy, anterior, left ICD-785.6 Inactive Kylie Yokum STONE GLUER Need for prophylactic vaccination and inoculation against in fluenza ICD-V04.81 Inactive Adam Yates MD Preventive health care ICD-V70.0 Inactive Ka thi Yokum STONE GLUER Thyroid nodule, left ICD-241.0 Inactive Selena Yates MD Screening mammogram ICD-V76.12 Inactive Kylie Yokum STONE GLUER Mandy ICD-706.2 Inactive Kylie Yokum STONE GLUER 07/20 Colon cancer, ascending ICD-153.6 Inactive K athi Yokum STONE GLUER Foot pain, left ICD-729.5 Inactive Kylie Yokum STONE GLUER Splinter ICD-919.6 Inactive Kylie Yokum STONE GLUER 2017 Rash ICD-782.1 Inactive Kylie Yokum STONE GLUER 07/25 Cyst ICD-706.2 Inactive Kylie Yokum STONE GLUER 08/11 Sebaceous cyst, scalp ICD-706.2 Inactive Tracy hi Yokum STONE GLUER Unspecified fall, initial encounter ICD-E888.9 Inactive Kylie Yokum STONE GLUER Eye pain, left ICD-379.91 Inactive Kylie Holt APRN Pharyngitis, acute ICD-074.0 Inactive Kavin Yates MD Hypomagnesemia ICD-275.2 Inactive Adam Franklin MD Hypokalemia ICD-276.8 Inactive Adam enamorado MD Enlarged thyroid ICD-240.9 Inactive Adam Yates MD Underweight Inactive LETY Nation 05/17 Follicular adenoma, thyroid ICD-226 Inactive Adam aYtes MD Medication List Medication Instructions Start Date Stop Date Generic Name NDC Status Provider Patient Instruction LEVOTHYROXINE SODIUM 50 MCG ORAL TABLET 1 daily LEVOTHYROXINE SODIUM 62494169043 Active Kylie Holt APRN Active VOLTAREN 1 % TRANSDERMAL GEL apply 2 grams q 6-8 hour to left arm as needed for pain DICLOFENAC SODIUM 83441857883 Active Kylie Marrero Active IMODIUM A-D 2 MG ORAL TABLET 1 tablet twice a day LOPERAMIDE HCL 40890740080 Active Kylie Holt APRN Active COQ10 100 MG ORAL CAPSULE 1 daily COENZYME Q10 895358 93750 Active LETY Nation Active VITAMIN D3 2000 UNIT ORAL CAPSULE Melaleuca-One daily CHOLECALCIFEROL 97825014622 Active Kylie Holt APRN Active PROBIOTIC DAILY ORAL CAPSULE Take one daily PROBIO TIC PRODUCT 35694893112 Active Kylie Holt APRN Active IRON 325 (65 Fe) MG ORAL TABLET 1 every other day FERROUS SULFATE 03407190286 No Longer Active Kylie Holt APRN Active FLORANEX ORAL PACKET 1 pack three times daily, for bowel health LACTOBACILLUS 93541651010 No Longer Active Kylie Holt APRN Active LOMOTIL 2.5-0.025 MG ORAL TABLET 1 tab by mouth prn 20 23/10/23 DIPHENOXYLATE-ATROPINE 70926831394 No Longer Active Kylie Polakum STONE GLUER Active MAGNESIUM GLUCONATE 250 MG ORAL TABLET 1 tab tid 20 23/10/23 MAGNESIUM GLUCONATE 46316005759 No Longer Active Kyile Yokum STONE GLUER Active CYANOCOBALAMIN 1000 MCG/ML INJECTION SOLUTION 1 injection ev ruben 2 weeks CYANOCOBALAMIN 54575965750 No Longer Active Kylie Yogabbi um STONE GLUER Active ATENOLOL 25 MG ORAL TABLET 1/2 pill by mouth daily, fo r headaches, blood pressure ATENOLOL 47454240443 Active Kylie Yokum STONE GLUER Active PROPRANOLOL HCL 80 MG ORAL TABLET 1 tab tue. and thur. PROPRANOLOL HCL 49107116557 No Longer Active Hope Benavidez MD PhD A ctive VITAMIN D3 4000 IU 1 tab 3 times daily VITAMIN D3 4000 IU No Longer Active Hope Benavidez MD PhD Active BACTRIM DS 800-160 MG ORAL TABLET 1 pill by mouth twice claudio y, for UTI SULFAMETHOXAZOLE-TRIMETHOPRIM 43617572374 No Longer Active Hope Benavidez MD PhD Active PROLIA 60 MG/ML SUBCUTANEOUS SOLUTION 1 shot every 6 months for osteoprosis DENOSUMAB 34888517650 Active Hope Benavidez MD PhD Active CALCIUM + D + K 750-500-40 MG-UNT-MCG ORAL TABLET 1 tab by m [facility] twice daily CALCIUM-VITAMIN D-VITAMIN K 71163671987 Active Hope valdez MD PhD Active DAILY VALUE MULTIVITAMIN ORAL TABLET 1 tab by mouth twice daily 201 05/16/14 MULTIPLE VITAMIN 80429351183 Active Hope Benavidez MD PhD Acti ve FISH OIL 306 MG CAPS 1 tab by mouth three times daily OMEGA-3 FATTY ACIDS 34097710783 Active Hope Benavidez MD PhD Active LUTEIN 10 MG ORAL TABLET 1 tab daily LUTEIN 63644978 408 Active Hope Benavidez MD PhD Active TRIAMTERENE-HCTZ 37.5-25 MG ORAL TABLET 1 tab by mouth daily 10/22 TRIAMTERENE-HCTZ 12529354581 Active Kylie Holt AMY Active CYCLOBENZAPRINE HCL 10 MG ORAL TABLET 1 tablet by [facility] three times daily as needed for headaches CYCLOBENZAPRINE HCL 72172606576 No Longer Active Adam Yates MD Active OMEPRAZOLE 20 MG ORAL CAPSULE DELAYED RELEASE 1 tablet by [facility] daily for GERD OMEPRAZOLE 20277337088 No Longer Active Adam Yates MD Active ZOFRAN 8 MG ORAL TABLET 1 tab by mouth every 12 hours prn 4 ONDANSETRON HCL 99846451537 No Longer Active Adam Yates MD Active PHENADOZ 25 MG RECTAL SUPPOSITORY 1 every 4 hrs. PRN 2 PROMETHAZINE HCL 24673922112 No Longer Active Adam Yates MD A ctive POTASSIUM CHLORIDE 20 MEQ ORAL PACKET by mouth twice a day prn 2 POTASSIUM CHLORIDE 49868559926 No Longer Active Adam Carpenter MD Active PROMETHAZINE HCL 25 MG ORAL TABLET 1 Q. 4 hr. PRN PROMETHAZINE HCL 75115474411 No Longer Active Adam Yates MD Active INNOPRAN XL 120 MG ORAL CAPSULE EXTENDED RELEASE 24 HO UR Take one by mouth daily PROPRANOLOL HCL SR BEADS 67539621558 No Longer Active Adam Yates MD Active FLAGYL 500 MG ORAL TABLET 1 pill by mouth three times daily, for diarrhea METRONIDAZOLE 97384568727 No Longer Active Hope landers MD PhD Active DYAZIDE 37.5-25 MG ORAL CAPSULE 1 qd TRIA MTERENE-HCTZ 28959430726 No Longer Active Hope Benavidez MD PhD Active PROZAC 20 MG ORAL CAPSULE 1 q d FLUOXETINE HCL 11626455815 No Longer Active Hope Benavidez MD PhD Active SIMVASTATIN 40 MG ORAL TABLET 1 qd SIMVAS TATIN 78377972048 No Longer Active Adam Yates MD Active MELOXICAM 15 MG ORAL TABLET 1 qd MELOXICAM 85994077406 No Longer Active Adam Yates MD Active EXCEDRIN EXTRA STRENGTH 250-250-65 MG ORAL TABLET 1-2 q6h HI N headache [id number] 19199746160 Active Hope Benavidez MD PhD Active FLAGYL 500 MG ORAL TABLET 1 qid METRONIDAZOL E 99707149678 No Longer Active Adam Yates MD Active LEVAQUIN 750 MG ORAL TABLET 1 qd LEVOFLOXAC IN 42072589135 No Longer Active Adam Yates MD Active ADULT ASPIRIN LOW STRENGTH 81 MG ORAL TABLET DISINTEGRATING 1 qd ASPIRIN 28882685776 Active Hope Benavidez MD PhD Active LEVAQUIN 750 MG ORAL TABLET 1 qd LEVAQUIN 750 MG ORAL TABLET 220342 LEVOFLOXACIN Inactive FLAGYL 500 MG ORAL TABLET 1 qid FLAGYL 500 MG ORAL TABLET 132694 METRONIDAZOLE Inactive MELOXICAM 15 MG ORAL TABLET 1 qd MELOXICAM 15 MG ORAL TABLET 636151 MELOXICAM Inactive SIMVASTATIN 40 MG ORAL TABLET 1 qd SIMVASTATIN 40 MG ORAL TABLET 827700 SIMVASTATIN Inactive PROZAC 20 MG ORAL CAPSULE 1 q d PROZAC 20 MG ORAL CAPSULE 632297 FLUOXETINE HCL Inactive DYAZIDE 37.5-25 MG ORAL CAPSULE 1 qd 5 DYAZIDE 37.5-25 MG ORAL CAPSULE 857938 TRIAMTERENE-HCTZ Inactive INNOPRAN XL 120 MG ORAL CAPSULE EXTENDED RELEASE 24 HO UR Take one by mouth daily INNOPRAN XL 120 MG ORAL CAPSULE EXTENDED RELEASE 24 HOUR PROPRANOLOL HCL SR BEADS Inactive PROMETHAZINE HCL 25 MG ORAL TABLET 1 Q. 4 hr. PRN 2013 PROMETHAZINE HCL 25 MG ORAL TABLET 910252 PROMETHAZINE HCL Inactive POTASSIUM CHLORIDE 20 MEQ ORAL PACKET by mouth twice a day prn 2 POTASSIUM CHLORIDE 20 MEQ ORAL PACKET 8366446 POTASSIUM CHLORIDE Inactive PHENADOZ 25 MG RECTAL SUPPOSITORY 1 every 4 hrs. PRN 2 PHENADOZ 25 MG RECTAL SUPPOSITORY 703249 PROMETHAZINE HCL Inactive ZOFRAN 8 MG ORAL TABLET 1 tab by mouth every 12 hours prn 4 ZOFRAN 8 MG ORAL TABLET 441338 ONDANSETRON HCL Inactive OMEPRAZOLE 20 MG ORAL CAPSULE DELAYED RELEASE 1 tablet by [facility] daily for GERD OMEPRAZOLE 20 MG ORAL CAPSULE DELAYED RELEASE 19 8051 OMEPRAZOLE Inactive CYCLOBENZAPRINE HCL 10 MG ORAL TABLET 1 tablet by mout three times daily as needed for headaches CYCLOBENZAPRINE HCL 10 MG ORAL TABLET 986562 CYCLOBENZAPRINE HCL Inactive VITAMIN D3 4000 IU 1 tab 3 times daily VITAMIN D3 4000 IU Inactive PROPRANOLOL HCL 80 MG ORAL TABLET 1 tab tue. and thur. PROPRANOLOL HCL 80 MG ORAL TABLET 864293 PROPRANOLOL HCL Inacti ve CYANOCOBALAMIN 1000 MCG/ML INJECTION SOLUTION 1 injection ev ruben 2 weeks CYANOCOBALAMIN 1000 MCG/ML INJECTION SOLUTION 30 9594 CYANOCOBALAMIN Inactive MAGNESIUM GLUCONATE 250 MG ORAL TABLET 1 tab tid 23/10/23 MAGNESIUM GLUCONATE 250 MG ORAL TABLET 418525 MAGNESIUM GLUCONATE Inactive LOMOTIL 2.5-0.025 MG ORAL TABLET 1 tab by mouth prn 23/10/23 LOMOTIL 2.5-0.025 MG ORAL TABLET 7520726 DIPHENOXYLATE-ATROPINE Inac tive FLORANEX ORAL PACKET 1 pack three times daily, for bowel health FLORANEX ORAL PACKET 63453713781 LACTOBACILLUS Inactive IRON 325 (65 Fe) MG ORAL TABLET 1 every other day 2015 IRON 325 (65 Fe) MG ORAL TABLET 531728 FERROUS SULFATE Inactive FLAGYL 500 MG ORAL TABLET 1 pill by mouth three times daily, for diarrhea FLAGYL 500 MG ORAL TABLET 116712 METRONIDAZOLE I nactive BACTRIM DS 800-160 MG ORAL TABLET 1 pill by mouth twice claudio y, for UTI BACTRIM DS 800-160 MG ORAL TABLET 422108 SULFAMETHOXAZOLE-TRIMETHOPRIM Inactive Advance Directives Directive Description Start [...] ... - Chemistry sodium, serum 141 mmol/L 822-089 5247/01/10 potassium, serum 3.7 mmol/L 3.5-5.2 chloride, serum 101 mmol/L 98-107 carbon dioxide, venous blood 31.0 mmol/L 21.0-32 .0 blood glucose 96 mg/dL 65-95 calcium, serum 9.5 mg/dL 8.5-10.1 urea nitrogen, blood 21 mg/dL 7-18 creatinine, serum 1.40 mg/dL 0.60-1.30 Estimated Glomerular Filtration Rate (calc) 39 (?) mL/min/1.73m2 = OR > 60 mL/min cholesterol, serum 211 mg/dL 280-644 2550/01/10 triglyceride, serum, fasting 77 mg/dL 30-200 HDL [...] 0.82 ng/dL 0.59-1.17 sodium, serum 142 mmol/L 306-901 1803/04/16 carbon dioxide, venous blood 30.0 mmol/L 21.0-32 [...] - Chelle radha sodium, serum 142 mmol/L 329-444 0797/11/02 potassium, serum 3.4 mmol/L 3.5-5.2 chloride, serum [...] 0.59-1.17 Encounters Code Encounter Date Provider Facility CPT-41830 [id number] Vst-Est Level III 09:15:19 [facility] [place] [facility] Level 4 Est. Patient 15:35:24 LEAD JAVA PROGRAMMER Adam Yates MD [facility] [place] CPT-04395 Level 3 New Patient 12:08:54 LEAD JAVA PROGRAMMER Adam Yates MD [facility] [place] CPT-89433 [id number] Vst-Est Level IV 19:48:30 LEAD JAVA PROGRAMMER Tracy Holt [facility] [place] CPT-58601 [id number] Vst-Est Level III 14:29:19 CDT Fiorella Holt [facility] [place] CPT-83739 Level 2 Est. Patient 14:58:26 CDT Kylie boyd [facility] [place] CPT-79239 Level 3 Est. Patient 08:15:24 LEAD JAVA PROGRAMMER Kylie boyd [facility] CPT-78668 Level 2 Est. Patient 14:27:16 LEAD JAVA PROGRAMMER Kylie boyd [facility] CPT-51018 Level 3 Est. Patient 17:54:48 CDT Kylie boyd [facility] CPT-01139 Level 3 Est. Patient 16:26:30 CDT Kina blackmon [facility] CPT-20697 Level 3 New Patient 16:22:01 LEAD JAVA PROGRAMMER Adam Yates MD [facility] [place] CPT-65356 Level 4 Est. Patient 17:00:48 CDT Kylie Lund [facility] CPT-87388 Level 3 Est. Patient 13:15:54 CDT Kylie Lund [facility] [place] CPT-78907 Level 3 Est. Patient 09:10:11 CDT Kylie Lund [facility] [place] CPT-04706 Level 4 Est. Patient 12:08:30 LEAD JAVA PROGRAMMER Hope cohn MD [facility] CPT-18185 Level 4 Est. Patient 19:08:42 LEAD JAVA PROGRAMMER Hope cohn MD [facility] CPT-94517 Level 4 Est. Patient 20:04:51 CDT Hope cohn MD PhD [facility] CPT-68763 Level 3 New Patient 01:46:11 LEAD JAVA PROGRAMMER Hope landers MD PhD [facility] Procedures Code Procedure Name Date Entry Date Standard Desc ription CPT-G0439 [facility] Annual Wellness Exam 09:15:19 CDT CPT-96503 Postop F/U Visit 15:45:41 CDT CPT-26590 Sono Soft Tissue Head and Neck - XRAY US E ONLY 11:56:06 LEAD JAVA PROGRAMMER CPT-17310 Abx/Therapy Injection 09:40:08 LEAD JAVA PROGRAMMER CPT-J0897 Prolia 60 mg 09:40:08 LEAD JAVA PROGRAMMER CPT-23429 First Vx - Ix admin for Medicare patients 02/08 10:02:45 CDT CPT-89707 Fluzone Quadrivalent Intramuscular Suspe nsion 0.5 ML 10:02:45 CDT CPT-58488 Magnesium - LAB USE ONLY 09:41:00 CDT 12/09 CPT-82558 Renal Panel - LAB USE ONLY 09:41:00 CDT 201 09/17/01 CPT-17185 Venipuncture Draw Fee 09:41:00 CDT CPT-90922 Calcium - LAB USE ONLY 17:25:11 CDT CPT-J0897 Prolia 60 mg 15:10:59 CDT CPT-80041 Abx/Therapy Injection 15:10:59 CDT CPT-G0439 Subsequent Annual Wellness Exam 14:29:19 CDT CPT-91940 Venipuncture Draw Fee 10:59:04 CDT CPT-64277 CMP - LAB USE ONLY 10:59:04 CDT CPT-30867 CBC with Diff - LAB USE ONLY 10:59:03 CDT 2 CPT-J0897 Prolia 60 mg 15:46:54 LEAD JAVA PROGRAMMER CPT-85029 Abx/Therapy Injection 15:46:54 LEAD JAVA PROGRAMMER CPT-04244 Microalbumin - LAB USE ONLY 09:41:32 LEAD JAVA PROGRAMMER 20 23/01/15 CPT-47686 Free T4 - LAB USE ONLY 09:41:32 LEAD JAVA PROGRAMMER CPT-11316 TSH - LAB USE ONLY 09:41:32 LEAD JAVA PROGRAMMER CPT-81033 BMP - LAB USE ONLY 09:41:32 LEAD JAVA PROGRAMMER CPT-41187 Venipuncture Draw Fee 09:41:32 LEAD JAVA PROGRAMMER CPT-32400 First Vx - Ix admin for Medicare patients 11:19:30 CDT CPT-31646 Fluzone High-Dose Intramuscular Suspension 12/07 11:19:30 CDT CPT-J0897 Prolia 60 mg 14:55:42 CDT CPT-95398 Abx/Therapy Injection 14:55:42 CDT CPT-71192 Bone Density - XRAY USE ONLY 10:27:12 CDT 2 CPT-G0439 [facility] Subsequent Annual Wellness Exam 17:54:53 CDT CPT-50312 Foot, left, comp min 3V - XRAY USE ONLY 12:22:49 CDT CPT-G0009 Administration of Pneumococcal Vaccine 3 12:18:00 CDT CPT-66904 Pneumovax 23 Injection Injectable 25 MCG /0.5ML 12:18:00 CDT CPT-J0897 Prolia 60 mg 14:14:16 LEAD JAVA PROGRAMMER CPT-84479 Abx/Therapy Injection 14:14:15 LEAD JAVA PROGRAMMER CPT-34372 Lipid - LAB USE ONLY 10:01:52 LEAD JAVA PROGRAMMER 2 CPT-41248 Calcium - LAB USE ONLY 10:01:51 LEAD JAVA PROGRAMMER CPT-27061 Venipuncture Draw Fee 10:01:51 LEAD JAVA PROGRAMMER CPT-LR Lesion Removal 16:22:01 LEAD JAVA PROGRAMMER CPT-35149 TSH - LAB USE ONLY 14:26:02 CDT CPT-63382 CMP - LAB USE ONLY 14:26:01 CDT CPT-01322 CBC with Diff - LAB USE ONLY 14:26:01 CDT 2 CPT-42302 Venipuncture Draw Fee 14:26:01 CDT CPT-46662 First Vx - Ix admin for Medicare patients 13:27:08 CDT CPT-28122 Fluzone High-Dose Intramuscular Suspension 11/26 13:27:08 CDT CPT-G0438 Initial Annual Wellness Exam 14:19:57 CD T CPT-G0009 Administration of Pneumococcal Vaccine 9 11:36:25 CDT CPT-56460 Prevnar 13 Intramuscular Suspension 1 1:36:25 CDT CPT-55307 Prevnar 13 Intramuscular Suspension 1 0:40:58 CDT CPT-J0897 Prolia 60 mg 10:37:16 CDT CPT-66265 Abx/Therapy Injection 10:37:16 CDT CPT-J0897 Prolia 60 mg 16:09:34 LEAD JAVA PROGRAMMER CPT-J0897 Prolia 60 mg 11:10:35 LEAD JAVA PROGRAMMER CPT-06461 Abx/Therapy Injection 11:10:35 LEAD JAVA PROGRAMMER CPT-000 Give Appropriate Flu Vaccine 17:01:15 LEAD JAVA PROGRAMMER 2 CPT-78684 Fluzone High Dose (65+) 15:03:08 LEAD JAVA PROGRAMMER 02/15 CPT-35358 Immunization Single Admin 15:03:08 LEAD JAVA PROGRAMMER 2014 CPT-OV Office Visit 15:58:06 CDT CPT-J0897 Prolia 60 mg 08:45:38 CDT CPT-41529 Abx/Therapy Injection 08:45:38 CDT CPT-J3420 Vitamin B12 1000mcg (Cyanocobalamin) 09:26:20 LEAD JAVA PROGRAMMER CPT-56195 Abx/Therapy Injection 09:26:20 LEAD JAVA PROGRAMMER CPT-J3420 Vitamin B12 1000mcg (Cyanocobalamin) 09:44:40 LEAD JAVA PROGRAMMER CPT-43633 Abx/Therapy Injection 09:44:40 LEAD JAVA PROGRAMMER CPT-J3420 Vitamin B12 1000mcg (Cyanocobalamin) 09:15:54 LEAD JAVA PROGRAMMER CPT-35414 Abx/Therapy Injection 09:15:54 LEAD JAVA PROGRAMMER CPT-J3420 Vitamin B12 1000mcg (Cyanocobalamin) 09:46:44 LEAD JAVA PROGRAMMER CPT-18878 Abx/Therapy Injection 09:46:44 LEAD JAVA PROGRAMMER CPT-J3420 Vitamin B12 1000mcg (Cyanocobalamin) 09:47:34 LEAD JAVA PROGRAMMER CPT-93863 Abx/Therapy Injection 09:47:34 LEAD JAVA PROGRAMMER CPT-J3420 Vitamin B12 1000mcg (Cyanocobalamin) 14:35:50 LEAD JAVA PROGRAMMER CPT-J3420 Vitamin B12 1000mcg (Cyanocobalamin) 09:25:05 LEAD JAVA PROGRAMMER CPT-24722 Abx/Therapy Injection 09:25:05 LEAD JAVA PROGRAMMER CPT-G0008 Administration of Influenza Virus Vaccine 13:36:47 CDT CPT-34617 Fluzone High-Dose Intramuscular Suspension 11/15 13:36:47 CDT CPT-J0897 Prolia 60 mg 08:50:41 CDT CPT-33061 Abx/Therapy Injection 08:50:41 CDT CPT-59820 Bone Density 12:06:12 CDT CPT-17526 Bone Density 08:54:40 CDT CPT-OV Office Visit 15:37:02 CDT CPT-85213 Postop F/U Visit 15:47:49 CDT CPT-51995 Postop F/U Visit 15:21:02 CDT CPT-TCMH Transitional Care Mgmt-High 07:52:27 CDT 20 20/06/01 CPT-10178 Venipuncture Draw Fee 13:51:18 CDT CPT-77136 Venipuncture Draw Fee 10:14:55 LEAD JAVA PROGRAMMER CPT-83963 Venipuncture Draw Fee 13:39:45 LEAD JAVA PROGRAMMER CPT-OV Office Visit 15:11:22 LEAD JAVA PROGRAMMER CPT-35549 Venipuncture Draw Fee 09:20:49 LEAD JAVA PROGRAMMER CPT-84020 Venipuncture Draw Fee 16:52:15 LEAD JAVA PROGRAMMER CPT-54155 Venipuncture Draw Fee 10:37:24 LEAD JAVA PROGRAMMER CPT-63163 Venipuncture Draw Fee 08:21:21 LEAD JAVA PROGRAMMER CPT-66304 Venipuncture Draw Fee 08:30:20 LEAD JAVA PROGRAMMER CPT-95871 Venipuncture Draw Fee 14:53:21 LEAD JAVA PROGRAMMER CPT-80861 Venipuncture Draw Fee 09:40:56 LEAD JAVA PROGRAMMER CPT-03932 Venipuncture Draw Fee 10:30:47 LEAD JAVA PROGRAMMER CPT-09826 Venipuncture Draw Fee 10:46:17 LEAD JAVA PROGRAMMER CPT-50586 Venipuncture Draw Fee 11:12:45 LEAD JAVA PROGRAMMER CPT-98962 Venipuncture Draw Fee 09:53:33 LEAD JAVA PROGRAMMER CPT-05210 Venipuncture Draw Fee 11:53:51 LEAD JAVA PROGRAMMER CPT-53485 Venipuncture Draw Fee 10:33:50 LEAD JAVA PROGRAMMER CPT-32405 Venipuncture Draw Fee 10:05:01 LEAD JAVA PROGRAMMER CPT-40307 Venipuncture Draw Fee 14:32:52 LEAD JAVA PROGRAMMER CPT-99736 Venipuncture Draw Fee 09:46:13 LEAD JAVA PROGRAMMER CPT-46454 Venipuncture Draw Fee 11:34:27 LEAD JAVA PROGRAMMER CPT-68949 Venipuncture Draw Fee 13:17:16 LEAD JAVA PROGRAMMER CPT-53040 Venipuncture Draw Fee 12:05:39 CDT CPT-10767 Venipuncture Draw Fee 12:49:12 CDT CPT-03769 Venipuncture Draw Fee 12:37:18 CDT CPT-87593 Venipuncture Draw Fee 10:57:11 CDT CPT-00167 Venipuncture Draw Fee 13:47:40 CDT CPT-58718 Venipuncture Draw Fee 10:02:17 CDT CPT-81567 TB Tubersol 17:32:32 CDT CPT-OV Office Visit 16:21:53 CDT CPT-OV Office Visit 15:49:22 CDT CPT-OV Office Visit 17:16:31 CDT CPT-OV Office Visit 10:43:31 CDT
--- OUTSIDE RECORDS SUMMARY | 2019-02-09 11:50 | XMS REPORT | Clinical Summary ---
Author Author Admin, Florecita Munoz Organization [facility] [place] Address Unknown Phone Unavailable Allergies, Adverse Reactions, [...] Sebaceous cyst, scalp 706.2 Resolved Kylie Yokum MACHINE MAINTENANCE SERVICER Sebaceous cyst Cervical lymphadenopathy, anterior, left 785.6 Resolv ed Kylie Yokum MACHINE MAINTENANCE SERVICER Enlargement of lymph nodes Need for prophylactic vaccination and inoculation against in fluenza V04.81 Resolved Adam Yates MD Need for prophylactic vaccination and inoculation against influenza Preventive health care V70.0 Resolved Kylie Lundu m MACHINE MAINTENANCE SERVICER Routine general medical examination at a health care facility Thyroid nodule, left 241.0 Resolved Selena Yates MD Nontoxic uninodular goiter Screening mammogram V76.12 Resolved Kylie Yokum A PRN Other screening mammogram Mandy 706.2 Resolved Kylie Yokum MACHINE MAINTENANCE SERVICER Sebaceous cyst Colon cancer, ascending 153.6 Resolved Kylie Yok um MACHINE MAINTENANCE SERVICER Malignant neoplasm of ascending colon Foot pain, left 729.5 Resolved Kylie Yokum MACHINE MAINTENANCE SERVICER Pain in limb Splinter 919.6 Resolved Kylie Yokum MACHINE MAINTENANCE SERVICER Superficial foreign body (splinter) of other, multiple, and unspecified sites, without major open wound and without mention of infection Rash 782.1 Resolved Kylie Yokum MACHINE MAINTENANCE SERVICER Rash and other nonspecific skin eruption Cyst 706.2 Resolved Kylie Yokum MACHINE MAINTENANCE SERVICER Sebaceous cyst Body Mass Index 23.0-23.9 Adult Refinement 2017 Kylie Yokum MACHINE MAINTENANCE SERVICER Body Mass Index between 19-24, adult BMI [...] MD PhD GERD ICD-530.81 Inactive Kylie Holt MACHINE MAINTENANCE SERVICER 2015 Health maintenance exam ICD-V70.0 Inactive Adolfo Yates MD Anemia ICD-285.9 Inactive Kylie Holt MACHINE MAINTENANCE SERVICER 07/24 Hypomagnesemia ICD-275.2 Inactive Kylie Holt MACHINE MAINTENANCE SERVICER Weakness ICD-780.79 Inactive Hope Benavidez MD P [...] cyst, scalp ICD-706.2 Inactive Tracy hi Yokum MACHINE MAINTENANCE SERVICER Cervical lymphadenopathy, anterior, left ICD-785.6 Inactive Kylie Yokum MACHINE MAINTENANCE SERVICER Need for prophylactic vaccination and inoculation against in fluenza ICD-V04.81 Inactive Adam Yates MD Preventive health care ICD-V70.0 Inactive Ka thi Yokum MACHINE MAINTENANCE SERVICER Thyroid nodule, left ICD-241.0 Inactive Selena Yates MD Screening mammogram ICD-V76.12 Inactive Kylie Yokum MACHINE MAINTENANCE SERVICER Mandy ICD-706.2 Inactive Kylie Yokum MACHINE MAINTENANCE SERVICER 07/20 Colon cancer, ascending ICD-153.6 Inactive K athi Yokum MACHINE MAINTENANCE SERVICER Foot pain, left ICD-729.5 Inactive Kylie Yokum MACHINE MAINTENANCE SERVICER Splinter ICD-919.6 Inactive Kylie Yokum MACHINE MAINTENANCE SERVICER 2017 Rash ICD-782.1 Inactive Kylie Yokum MACHINE MAINTENANCE SERVICER 07/25 Cyst ICD-706.2 Inactive Kylie Yokum MACHINE MAINTENANCE SERVICER 08/11 Unspecified fall, initial encounter ICD-E888.9 Inactive Kylie Yokum MACHINE MAINTENANCE SERVICER Eye pain, left ICD-379.91 Inactive Kylie Yokum MACHINE MAINTENANCE SERVICER Pharyngitis, acute ICD-074.0 Inactive Kavin Yates MD [...] arm as needed for pain DICLOFENAC SODIUM 76965660893 Active Kylie Holt APR N Active IMODIUM A-D 2 MG ORAL TABLET 1 tablet twice a day LOPERAMIDE HCL 44547385402 Active Kylie Holt APRN Active COQ10 100 MG ORAL CAPSULE 1 daily COENZYME Q10 530708 46669 Active Fay Alberts [facility] Active VITAMIN D3 2000 UNIT ORAL CAPSULE Melaleuca-One daily CHOLECALCIFEROL 16003714766 Active Kylie Holt APRN Active PROBIOTIC DAILY ORAL CAPSULE Take one daily PROBIO TIC PRODUCT 15062570248 Active Kylie Holt APRN Active IRON 325 (65 Fe) MG ORAL TABLET 1 every other day FERROUS SULFATE 96000373252 No Longer Active Kylie Holt APRN Active FLORANEX ORAL PACKET 1 pack three times daily, for bowel health LACTOBACILLUS 24659592092 No Longer Active Kylie Holt APRN Active LOMOTIL 2.5-0.025 MG ORAL TABLET 1 tab by mouth prn 23/10/23 DIPHENOXYLATE-ATROPINE 99380943181 No Longer Active Kylie Lundum AMY Active MAGNESIUM GLUCONATE 250 MG ORAL TABLET 1 tab tid 23/10/23 MAGNESIUM GLUCONATE 70902282049 No Longer Active Kylie Holt APRN Active CYANOCOBALAMIN 1000 MCG/ML INJECTION SOLUTION 1 injection ev ruben 2 weeks CYANOCOBALAMIN 29165242669 No Longer Active Kylie Lund um MACHINE MAINTENANCE SERVICER Active ATENOLOL 25 MG ORAL TABLET 1/2 pill by mouth daily, fo r headaches, blood pressure ATENOLOL 59000497898 Active Kylie Holt MACHINE MAINTENANCE SERVICER Active PROPRANOLOL HCL 80 MG ORAL TABLET 1 tab tue. and thur. PROPRANOLOL HCL 33040901387 No Longer Active Hope Benavidez MD PhD A ctive VITAMIN D3 4000 IU 1 tab 3 times daily VITAMIN D3 4000 IU No Longer Active Hope Benavidez MD PhD Active BACTRIM DS 800-160 MG ORAL TABLET 1 pill by mouth twice claudio y, for UTI SULFAMETHOXAZOLE-TRIMETHOPRIM 36402285327 No Longer Active Hope Benavidez MD PhD Active PROLIA 60 MG/ML SUBCUTANEOUS SOLUTION 1 shot every 6 months for osteoprosis DENOSUMAB 82487740700 Active Hope Benavidez MD PhD Active CALCIUM + D + K 750-500-40 MG-UNT-MCG ORAL TABLET 1 tab by m [facility] twice daily CALCIUM-VITAMIN D-VITAMIN K 81710000348 Active Hope valdez MD PhD Active DAILY VALUE MULTIVITAMIN ORAL TABLET 1 tab by mouth twice daily 201 05/16/14 MULTIPLE VITAMIN 49737959839 Active Hope Benavidez MD PhD Acti ve FISH OIL 306 MG CAPS 1 tab by mouth three times daily OMEGA-3 FATTY ACIDS 49389489854 Active Hope Benavidez MD PhD Active LUTEIN 10 MG ORAL TABLET 1 tab daily LUTEIN 26629738 408 Active Hope Benavidez MD PhD Active TRIAMTERENE-HCTZ 37.5-25 MG ORAL TABLET 1 tab by mouth daily 10/22 TRIAMTERENE-HCTZ 91032800320 Active Kylieshubham Lundoliver MACHINE MAINTENANCE SERVICER Active CYCLOBENZAPRINE HCL 10 MG ORAL TABLET 1 tablet by mout h three times daily as needed for headaches CYCLOBENZAPRINE HCL 44521603936 No Longer Active Adam Yates MD Active OMEPRAZOLE 20 MG ORAL CAPSULE DELAYED RELEASE 1 tablet by mo [facility] daily for GERD OMEPRAZOLE 19047474859 No Longer Active Adam Yates MD Active ZOFRAN 8 MG ORAL TABLET 1 tab by mouth every 12 hours prn 4 ONDANSETRON HCL 86374993438 No Longer Active Adam Yates MD Active PHENADOZ 25 MG RECTAL SUPPOSITORY 1 every 4 hrs. PRN 2 PROMETHAZINE HCL 27782130979 No Longer Active Adam Yates MD A ctive POTASSIUM CHLORIDE 20 MEQ ORAL PACKET by mouth twice a day prn 2 POTASSIUM CHLORIDE 08326962558 No Longer Active Adam Carpenter MD Active PROMETHAZINE HCL 25 MG ORAL TABLET 1 Q. 4 hr. PRN PROMETHAZINE HCL 46539287265 No Longer Active Adam Yates MD Active INNOPRAN XL 120 MG ORAL CAPSULE EXTENDED RELEASE 24 HO UR Take one by mouth daily PROPRANOLOL HCL SR BEADS 83306351709 No Longer Active Adam Yates MD Active FLAGYL 500 MG ORAL TABLET 1 pill by mouth three times daily, for diarrhea METRONIDAZOLE 22554539260 No Longer Active Hope landers MD PhD Active DYAZIDE 37.5-25 MG ORAL CAPSULE 1 qd TRIA MTERENE-HCTZ 18413008811 No Longer Active Hope Benavidez MD PhD Active PROZAC 20 MG ORAL CAPSULE 1 q d FLUOXETINE HCL 73926160452 No Longer Active Hope Benavidez MD PhD Active SIMVASTATIN 40 MG ORAL TABLET 1 qd SIMVAS TATIN 16414944061 No Longer Active Adam Yates MD Active MELOXICAM 15 MG ORAL TABLET 1 qd MELOXICAM 77324859094 No Longer Active Adam Yates MD Active EXCEDRIN EXTRA STRENGTH 250-250-65 MG ORAL TABLET 1-2 q6h OR N headache [id number] 37252250879 Active Hope Benavidez MD PhD Active FLAGYL 500 MG ORAL TABLET 1 qid METRONIDAZOL E 97333416049 No Longer Active Adam Yates MD Active LEVAQUIN 750 MG ORAL TABLET 1 qd LEVOFLOXAC IN 28822637882 No Longer Active Adam Yates MD Active ADULT ASPIRIN LOW STRENGTH 81 MG ORAL TABLET DISINTEGRATING 1 qd ASPIRIN 15993489170 Active Hope Benaivdez MD PhD Active LEVAQUIN 750 MG ORAL TABLET 1 qd LEVAQUIN 750 MG ORAL TABLET 986727 LEVOFLOXACIN Inactive FLAGYL 500 MG ORAL TABLET 1 qid FLAGYL 500 MG ORAL TABLET 544183 METRONIDAZOLE Inactive MELOXICAM 15 MG ORAL TABLET 1 qd MELOXICAM 15 MG ORAL TABLET 809142 MELOXICAM Inactive SIMVASTATIN 40 MG ORAL TABLET 1 qd SIMVASTATIN 40 MG ORAL TABLET 141760 SIMVASTATIN Inactive PROZAC 20 MG ORAL CAPSULE 1 q d PROZAC 20 MG ORAL CAPSULE 114775 FLUOXETINE HCL Inactive DYAZIDE 37.5-25 MG ORAL CAPSULE 1 qd 5 DYAZIDE 37.5-25 MG ORAL CAPSULE 913593 TRIAMTERENE-HCTZ Inactive INNOPRAN XL 120 MG ORAL CAPSULE EXTENDED RELEASE 24 HO UR Take one by mouth daily INNOPRAN XL 120 MG ORAL CAPSULE EXTENDED RELEASE 24 HOUR PROPRANOLOL HCL SR BEADS Inactive PROMETHAZINE HCL 25 MG ORAL TABLET 1 Q. 4 hr. PRN 2013 PROMETHAZINE HCL 25 MG ORAL TABLET 520009 PROMETHAZINE HCL Inactive POTASSIUM CHLORIDE 20 MEQ ORAL PACKET by mouth twice a day prn 2 POTASSIUM CHLORIDE 20 MEQ ORAL PACKET 8439373 POTASSIUM CHLORIDE Inactive PHENADOZ 25 MG RECTAL SUPPOSITORY 1 every 4 hrs. PRN PHENADOZ 25 MG RECTAL SUPPOSITORY 865511 PROMETHAZINE HCL Inactive ZOFRAN 8 MG ORAL TABLET 1 tab by mouth every 12 hours prn 4 ZOFRAN 8 MG ORAL TABLET 912729 ONDANSETRON HCL Inactive OMEPRAZOLE 20 MG ORAL CAPSULE DELAYED RELEASE 1 tablet by mo uth daily for GERD OMEPRAZOLE 20 MG ORAL CAPSULE DELAYED RELEASE 19 8051 OMEPRAZOLE Inactive CYCLOBENZAPRINE HCL 10 MG ORAL TABLET 1 tablet by mout h three times daily as needed for headaches CYCLOBENZAPRINE HCL 10 MG ORAL TABLET 300326 CYCLOBENZAPRINE HCL Inactive VITAMIN D3 4000 IU 1 tab 3 times daily VITAMIN D3 4000 IU Inactive PROPRANOLOL HCL 80 MG ORAL TABLET 1 tab tue. and thur. PROPRANOLOL HCL 80 MG ORAL TABLET 425491 PROPRANOLOL HCL Inacti ve CYANOCOBALAMIN 1000 MCG/ML INJECTION SOLUTION 1 injection ev ruben 2 weeks CYANOCOBALAMIN 1000 MCG/ML INJECTION SOLUTION 30 9594 CYANOCOBALAMIN Inactive MAGNESIUM GLUCONATE 250 MG ORAL TABLET 1 tab tid 23/10/23 MAGNESIUM GLUCONATE 250 MG ORAL TABLET 484839 MAGNESIUM GLUCONATE Inactive LOMOTIL 2.5-0.025 MG ORAL TABLET 1 tab by mouth prn 23/10/23 LOMOTIL 2.5-0.025 MG ORAL TABLET 3924815 DIPHENOXYLATE-ATROPINE Inac tive FLORANEX ORAL PACKET 1 pack three times daily, for bowel health FLORANEX ORAL PACKET 52279996513 LACTOBACILLUS Inactive IRON 325 (65 Fe) MG ORAL TABLET 1 every other day 2015 IRON 325 (65 Fe) MG ORAL TABLET 907065 FERROUS SULFATE Inactive FLAGYL 500 MG ORAL TABLET 1 pill by mouth three times daily, for diarrhea FLAGYL 500 MG ORAL TABLET 513120 METRONIDAZOLE I nactive BACTRIM DS 800-160 MG ORAL TABLET 1 pill by mouth twice claudio y, for UTI BACTRIM DS 800-160 MG ORAL TABLET 383153 SULFAMETHOXAZOLE-TRIMETHOPRIM Inactive Advance Directives Directive Description Start [...] ... - Chemistry sodium, serum 141 mmol/L 172-516 1683/01/10 potassium, serum 3.7 mmol/L 3.5-5.2 chloride, serum 101 mmol/L 98-107 carbon dioxide, venous blood 31.0 mmol/L 21.0-32 .0 blood glucose 96 mg/dL 65-95 calcium, serum 9.5 mg/dL 8.5-10.1 urea nitrogen, blood 21 mg/dL 7-18 creatinine, serum 1.40 mg/dL 0.60-1.30 Estimated Glomerular Filtration Rate (calc) 39 (?) mL/min/1.73m2 = OR > 60 mL/min cholesterol, serum 211 mg/dL 770-451 2353/01/10 triglyceride, serum, fasting 77 mg/dL 30-200 HDL [...] ... - Chemistry sodium, serum 142 mmol/L 219-270 5517/04/16 carbon dioxide, venous blood 30.0 mmol/L 21.0-32 [...] - Chelle radha sodium, serum 142 mmol/L 584-364 7001/11/02 potassium, serum 3.4 mmol/L 3.5-5.2 chloride, serum [...] mg/dL Encounters Code Encounter Date Provider Facility CPT-43003 Level 4 Est. Patient 15:35:24 COAL GRADER Adam Yates MD [facility] CPT-72686 Level 3 New Patient 12:08:54 COAL GRADER Adam Yates MD [facility] CPT-26359 [id number]-Tqt Vst-Est Level IV 19:48:30 COAL GRADER Tracy Holt [facility] CPT-57805 51684-Mks Vst-Est Level III 14:29:19 CDT Fiorella Holt [facility] CPT-20226 Level 2 Est. Patient 14:58:26 CDT Kylie boyd [facility] CPT-11931 Level 3 Est. Patient 08:15:24 COAL GRADER Kylie boyd [facility] CPT-97726 Level 2 Est. Patient 14:27:16 COAL GRADER Kylie boyd [facility] CPT-42406 Level 3 Est. Patient 17:54:48 CDT Kylie boyd [facility] CPT-06702 Level 3 Est. Patient 16:26:30 CDT Kina blackmon [facility] CPT-30434 Level 3 New Patient 16:22:01 COAL GRADER Adam Yates MD [facility] CPT-13946 Level 4 Est. Patient 17:00:48 CDT [facility]-62330 Level 3 Est. Patient 13:15:54 CDT Kylie boyd [facility] CPT-46483 Level 3 Est. Patient 09:10:11 CDT Kylie boyd [facility] CPT-26111 Level 4 Est. Patient 12:08:30 COAL GRADER Hope cohn MD [facility] CPT-65781 Level 4 Est. Patient 19:08:42 COAL GRADER Hope cohn MD PhD [facility] CPT-75270 Level 4 Est. Patient 20:04:51 CDT Hope cohn MD PhD [facility] CPT-94777 Level 3 New Patient 01:46:11 COAL GRADER Hope landers MD PhD [facility] Procedures Code Procedure Name Date Entry Date Standard Desc ription CPT-56763 Postop F/U Visit 15:45:41 CDT CPT-63619 Sono Soft Tissue Head and Neck - XRAY US E ONLY 11:56:06 COAL GRADER CPT-60108 Abx/Therapy Injection 09:40:08 COAL GRADER CPT-J0897 Prolia 60 mg 09:40:08 COAL GRADER CPT-34649 First Vx - Ix admin for Medicare patients 02/08 10:02:45 CDT CPT-18048 Fluzone Quadrivalent Intramuscular Suspe nsion 0.5 ML 10:02:45 CDT CPT-52250 Magnesium - LAB USE ONLY 09:41:00 CDT 12/09 CPT-19257 Renal Panel - LAB USE ONLY 09:41:00 CDT 201 09/17/01 CPT-02932 Venipuncture Draw Fee 09:41:00 CDT CPT-35190 Calcium - LAB USE ONLY 17:25:11 CDT CPT-J0897 Prolia 60 mg 15:10:59 CDT CPT-56379 Abx/Therapy Injection 15:10:59 CDT CPT-G0439 Subsequent Annual Wellness Exam 14:29:19 CDT CPT-25744 Venipuncture Draw Fee 10:59:04 CDT CPT-75702 CMP - LAB USE ONLY 10:59:04 CDT CPT-15403 CBC with Diff - LAB USE ONLY 10:59:03 CDT 2 CPT-J0897 Prolia 60 mg 15:46:54 COAL GRADER CPT-32361 Abx/Therapy Injection 15:46:54 COAL GRADER CPT-66789 Microalbumin - LAB USE ONLY 09:41:32 COAL GRADER 20 23/01/15 CPT-80411 Free T4 - LAB USE ONLY 09:41:32 COAL GRADER CPT-57386 TSH - LAB USE ONLY 09:41:32 COAL GRADER CPT-65865 BMP - LAB USE ONLY 09:41:32 COAL GRADER CPT-61785 Venipuncture Draw Fee 09:41:32 COAL GRADER CPT-18980 First Vx - Ix admin for Medicare patients 11:19:30 CDT CPT-34336 Fluzone High-Dose Intramuscular Suspension 12/07 11:19:30 CDT CPT-J0897 Prolia 60 mg 14:55:42 CDT CPT-04287 Abx/Therapy Injection 14:55:42 CDT CPT-26264 Bone Density - XRAY USE ONLY 10:27:12 CDT 2 CPT-G0439 MC Subsequent Annual Wellness Exam 17:54:53 CDT CPT-26833 Foot, left, comp min 3V - XRAY USE ONLY 12:22:49 CDT CPT-G0009 Administration of Pneumococcal Vaccine 3 12:18:00 CDT CPT-13456 Pneumovax 23 Injection Injectable 25 MCG /0.5ML 12:18:00 CDT CPT-J0897 Prolia 60 mg 14:14:16 COAL GRADER CPT-27623 Abx/Therapy Injection 14:14:15 COAL GRADER CPT-36673 Lipid - LAB USE ONLY 10:01:52 COAL GRADER 2 CPT-12325 Calcium - LAB USE ONLY 10:01:51 COAL GRADER CPT-23050 Venipuncture Draw Fee 10:01:51 COAL GRADER CPT-LR Lesion Removal 16:22:01 COAL GRADER CPT-95522 TSH - LAB USE ONLY 14:26:02 CDT CPT-98579 CMP - LAB USE ONLY 14:26:01 CDT CPT-07368 CBC with Diff - LAB USE ONLY 14:26:01 CDT 2 CPT-52522 Venipuncture Draw Fee 14:26:01 CDT CPT-82561 First Vx - Ix admin for Medicare patients 13:27:08 CDT CPT-82409 Fluzone High-Dose Intramuscular Suspension 11/26 13:27:08 CDT CPT-G0438 Initial Annual Wellness Exam 14:19:57 CD T CPT-G0009 Administration of Pneumococcal Vaccine 9 11:36:25 CDT CPT-07804 Prevnar 13 Intramuscular Suspension 1 1:36:25 CDT CPT-03581 Prevnar 13 Intramuscular Suspension 1 0:40:58 CDT CPT-J0897 Prolia 60 mg 10:37:16 CDT CPT-11772 Abx/Therapy Injection 10:37:16 CDT CPT-J0897 Prolia 60 mg 16:09:34 COAL GRADER CPT-J0897 Prolia 60 mg 11:10:35 COAL GRADER CPT-48934 Abx/Therapy Injection 11:10:35 COAL GRADER CPT-000 Give Appropriate Flu Vaccine 17:01:15 COAL GRADER 2 CPT-82327 Fluzone High Dose (65+) 15:03:08 COAL GRADER 02/15 CPT-74127 Immunization Single Admin 15:03:08 COAL GRADER 2014 CPT-OV Office Visit 15:58:06 CDT CPT-J0897 Prolia 60 mg 08:45:38 CDT CPT-84396 Abx/Therapy Injection 08:45:38 CDT CPT-J3420 Vitamin B12 1000mcg (Cyanocobalamin) 09:26:20 COAL GRADER CPT-24842 Abx/Therapy Injection 09:26:20 COAL GRADER CPT-J3420 Vitamin B12 1000mcg (Cyanocobalamin) 09:44:40 COAL GRADER CPT-77157 Abx/Therapy Injection 09:44:40 COAL GRADER CPT-J3420 Vitamin B12 1000mcg (Cyanocobalamin) 09:15:54 COAL GRADER CPT-92627 Abx/Therapy Injection 09:15:54 COAL GRADER CPT-J3420 Vitamin B12 1000mcg (Cyanocobalamin) 09:46:44 COAL GRADER CPT-85495 Abx/Therapy Injection 09:46:44 COAL GRADER CPT-J3420 Vitamin B12 1000mcg (Cyanocobalamin) 09:47:34 COAL GRADER CPT-18767 Abx/Therapy Injection 09:47:34 COAL GRADER CPT-J3420 Vitamin B12 1000mcg (Cyanocobalamin) 14:35:50 COAL GRADER CPT-J3420 Vitamin B12 1000mcg (Cyanocobalamin) 09:25:05 COAL GRADER CPT-68099 Abx/Therapy Injection 09:25:05 COAL GRADER CPT-G0008 Administration of Influenza Virus Vaccine 13:36:47 CDT CPT-80815 Fluzone High-Dose Intramuscular Suspension 11/15 13:36:47 CDT CPT-J0897 Prolia 60 mg 08:50:41 CDT CPT-83512 Abx/Therapy Injection 08:50:41 CDT CPT-37184 Bone Density 12:06:12 CDT CPT-59420 Bone Density 08:54:40 CDT CPT-OV Office Visit 15:37:02 CDT CPT-94501 Postop F/U Visit 15:47:49 CDT CPT-72902 Postop F/U Visit 15:21:02 CDT CPT-TCMH Transitional Care Mgmt-High 07:52:27 CDT 20 20/06/01 CPT-14930 Venipuncture Draw Fee 13:51:18 CDT CPT-13808 Venipuncture Draw Fee 10:14:55 COAL GRADER CPT-12145 Venipuncture Draw Fee 13:39:45 COAL GRADER CPT-OV Office Visit 15:11:22 COAL GRADER CPT-31649 Venipuncture Draw Fee 09:20:49 COAL GRADER CPT-58727 Venipuncture Draw Fee 16:52:15 COAL GRADER CPT-55308 Venipuncture Draw Fee 10:37:24 COAL GRADER CPT-17422 Venipuncture Draw Fee 08:21:21 COAL GRADER CPT-39200 Venipuncture Draw Fee 08:30:20 COAL GRADER CPT-54170 Venipuncture Draw Fee 14:53:21 COAL GRADER CPT-27827 Venipuncture Draw Fee 09:40:56 COAL GRADER CPT-93642 Venipuncture Draw Fee 10:30:47 COAL GRADER CPT-07786 Venipuncture Draw Fee 10:46:17 COAL GRADER CPT-68326 Venipuncture Draw Fee 11:12:45 COAL GRADER CPT-03140 Venipuncture Draw Fee 09:53:33 COAL GRADER CPT-94360 Venipuncture Draw Fee 11:53:51 COAL GRADER CPT-33196 Venipuncture Draw Fee 10:33:50 COAL GRADER CPT-86589 Venipuncture Draw Fee 10:05:01 COAL GRADER CPT-04556 Venipuncture Draw Fee 14:32:52 COAL GRADER CPT-55874 Venipuncture Draw Fee 09:46:13 COAL GRADER CPT-85409 Venipuncture Draw Fee 11:34:27 COAL GRADER CPT-11025 Venipuncture Draw Fee 13:17:16 COAL GRADER CPT-86696 Venipuncture Draw Fee 12:05:39 CDT CPT-64976 Venipuncture Draw Fee 12:49:12 CDT CPT-66365 Venipuncture Draw Fee 12:37:18 CDT CPT-54960 Venipuncture Draw Fee 10:57:11 CDT CPT-28372 Venipuncture Draw Fee 13:47:40 CDT CPT-44281 Venipuncture Draw Fee 10:02:17 CDT CPT-73592 TB Tubersol 17:32:32 CDT CPT-OV Office Visit 16:21:53 CDT CPT-OV Office Visit 15:49:22 CDT CPT-OV Office Visit 17:16:31 CDT CPT-OV Office Visit 10:43:31 CDT
--- OUTSIDE RECORDS SUMMARY | 2019-02-09 11:50 | XMS REPORT | Clinical Summary ---
Author Author Renaldo, Florecita Munoz Organization [facility] Address Unknown Phone Unavailable Allergies, Adverse Reactions, [...] Hyperpotassemia GERD 530.81 Resolved Kylie Yokum ACCOUNTS SPECIALIST Esophageal reflux Health maintenance exam V70.0 Resolved Adolfo Yates MD Routine general medical examination at a health care facility Anemia 285.9 Resolved Kylie Yanet ACCOUNTS SPECIALIST Anemia, unspecified Personal history of malignant neoplasm of large intestine V10.05 Active Adam Yates MD Personal history of malignant neoplasm of large intestine Hypomagnesemia 275.2 Resolved Kylie Yanet ACCOUNTS SPECIALIST Disorders of magnesium metabolism Weakness 780.79 [...] cyst, scalp 706.2 Resolved Kylie Yokum ACCOUNTS SPECIALIST Sebaceous cyst Cervical lymphadenopathy, anterior, left 785.6 Resolv ed Kylie Yokum ACCOUNTS SPECIALIST Enlargement of lymph nodes Need for prophylactic vaccination and inoculation against in fluenza V04.81 Resolved Adam Yates MD Need for prophylactic vaccination and inoculation against influenza Preventive health care V70.0 Resolved Kylie Lundu m ACCOUNTS SPECIALIST Routine general medical examination at a health care facility Thyroid nodule, left 241.0 Resolved Selena Yates MD Nontoxic uninodular goiter Screening mammogram V76.12 Resolved Kylie Yokum A PRN Other screening mammogram Mandy 706.2 Resolved Kylie Yokum ACCOUNTS SPECIALIST Sebaceous cyst Colon cancer, ascending 153.6 Resolved Kylie Yok um ACCOUNTS SPECIALIST Malignant neoplasm of ascending colon Foot pain, left 729.5 Resolved Klyie Yokum ACCOUNTS SPECIALIST Pain in limb Splinter 919.6 Resolved Kylie Yokum ACCOUNTS SPECIALIST Superficial foreign body (splinter) of other, multiple, and unspecified sites, without major open wound and without mention of infection Rash 782.1 Resolved Kylie Yokum ACCOUNTS SPECIALIST Rash and other nonspecific skin eruption Cyst 706.2 Resolved Kylie Yokum ACCOUNTS SPECIALIST Sebaceous cyst Body Mass Index 23.0-23.9 Adult Refinement 2017 Kylie Yokum ACCOUNTS SPECIALIST Body Mass Index between 19-24, adult [...] cohn MD PhD UNSPECIFIED VENOUS INSUFFICIENCY ICD-459.81 [place] ctive Adam Yates MD ADENOCARCINOMA, 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 Inac tive Hope Benavidez MD PhD Hyperkalemia ICD-276.7 Inactive Hope Benavidez MD PhD GERD ICD-530.81 Inactive Kylie Holt ACCOUNTS SPECIALIST 2015 Health maintenance exam ICD-V70.0 Bam Yates MD Anemia ICD-285.9 Inactive Kylie Holt ACCOUNTS SPECIALIST 07/24 Hypomagnesemia ICD-275.2 Inactive Kylie Holt ACCOUNTS SPECIALIST Weakness ICD-780.79 Inactive Hope Benavidez MD [...] scalp ICD-706.2 Inactive Tracy hi Yokum ACCOUNTS SPECIALIST Cervical lymphadenopathy, anterior, left ICD-785.6 Inactive Kylie Yokum ACCOUNTS SPECIALIST Need for prophylactic vaccination and inoculation against in fluenza ICD-V04.81 Inactive Adam Yates MD Preventive health care ICD-V70.0 Inactive Ka thi Yokum ACCOUNTS SPECIALIST Thyroid nodule, left ICD-241.0 Inactive Selena Yates MD Screening mammogram ICD-V76.12 Inactive Kylie Yokum ACCOUNTS SPECIALIST Mandy ICD-706.2 Inactive Kylie Yokum ACCOUNTS SPECIALIST 07/20 Colon cancer, ascending ICD-153.6 Inactive K athi Yokum ACCOUNTS SPECIALIST Foot pain, left ICD-729.5 Inactive Kylie Yokum ACCOUNTS SPECIALIST Splinter ICD-919.6 Inactive Kylie Yokum ACCOUNTS SPECIALIST 2017 Rash ICD-782.1 Inactive Kylie Yokum ACCOUNTS SPECIALIST 07/25 Cyst ICD-706.2 Inactive Kylie Yokum ACCOUNTS SPECIALIST 08/11 Unspecified fall, initial encounter ICD-E888.9 Inactive Kylie Yokum ACCOUNTS SPECIALIST Eye pain, left ICD-379.91 Inactive Kylie Yokum ACCOUNTS SPECIALIST Pharyngitis, acute ICD-074.0 Inactive Kavin Yates MD [...] arm as needed for pain DICLOFENAC SODIUM 40437124157 Active Kylie Holt APR N Active IMODIUM A-D 2 MG ORAL TABLET 1 tablet twice a day LOPERAMIDE HCL 45501710174 Active Kylie Holt APRN Active COQ10 100 MG ORAL CAPSULE 1 daily COENZYME Q10 304461 56231 Active Fay Alberts [facility] Active VITAMIN D3 2000 UNIT ORAL CAPSULE Melaleuca-One daily CHOLECALCIFEROL 67231162530 Active Kylie Holt APRN Active PROBIOTIC DAILY ORAL CAPSULE Take one daily PROBIO TIC PRODUCT 11310072313 Active Kylie Lundum AMY Active IRON 325 (65 Fe) MG ORAL TABLET 1 every other day FERROUS SULFATE 79009789580 No Longer Active Kylie Lundum AMY Active FLORANEX ORAL PACKET 1 pack three times daily, for bowel health LACTOBACILLUS 82531264357 No Longer Active Kylie Lundum AMY Active LOMOTIL 2.5-0.025 MG ORAL TABLET 1 tab by mouth prn 23/10/23 DIPHENOXYLATE-ATROPINE 76916942212 No Longer Active Kylie Lundum ACCOUNTS SPECIALIST Active MAGNESIUM GLUCONATE 250 MG ORAL TABLET 1 tab tid 23/10/23 MAGNESIUM GLUCONATE 26693604229 No Longer Active Kylie Lundum ACCOUNTS SPECIALIST Active CYANOCOBALAMIN 1000 MCG/ML INJECTION SOLUTION 1 injection ev ruben 2 weeks CYANOCOBALAMIN 71769193094 No Longer Active Kylie boyd ACCOUNTS SPECIALIST Active ATENOLOL 25 MG ORAL TABLET 1/2 pill by mouth daily, fo r headaches, blood pressure ATENOLOL 53111083562 Active Kylie Hlot ACCOUNTS SPECIALIST Active PROPRANOLOL HCL 80 MG ORAL TABLET 1 tab tue. and thur. PROPRANOLOL HCL 15127264178 No Longer Active Hope Benavidez MD PhD A ctive VITAMIN D3 4000 IU 1 tab 3 times daily VITAMIN D3 4000 IU No Longer Active Hope Benavidez MD PhD Active BACTRIM DS 800-160 MG ORAL TABLET 1 pill by mouth twice claudio y, for UTI SULFAMETHOXAZOLE-TRIMETHOPRIM 47209704056 No Longer Active Hope Benavidez MD PhD Active PROLIA 60 MG/ML SUBCUTANEOUS SOLUTION 1 shot every 6 months for osteoprosis DENOSUMAB 20414740939 Active Hope Benavidez MD PhD Active CALCIUM + D + K 750-500-40 MG-UNT-MCG ORAL TABLET 1 tab by m out twice daily CALCIUM-VITAMIN D-VITAMIN K 64734131836 Active Hope valdez MD PhD Active DAILY VALUE MULTIVITAMIN ORAL TABLET 1 tab by mouth twice daily 201 05/16/14 MULTIPLE VITAMIN 56371641572 Active Hope Benavidez MD PhD Acti ve FISH OIL 306 MG CAPS 1 tab by mouth three times daily OMEGA-3 FATTY ACIDS 21195042841 Active Hope Benavidez MD PhD Active LUTEIN 10 MG ORAL TABLET 1 tab daily LUTEIN 59158331 408 Active Hope Benavidez MD PhD Active TRIAMTERENE-HCTZ 37.5-25 MG ORAL TABLET 1 tab by mouth daily 10/22 TRIAMTERENE-HCTZ 31505772191 Active Kylieshubham Lundoliver ACCOUNTS SPECIALIST Active CYCLOBENZAPRINE HCL 10 MG ORAL TABLET 1 tablet by mout h three times daily as needed for headaches CYCLOBENZAPRINE HCL 64066396153 No Longer Active Adam Yates MD Active OMEPRAZOLE 20 MG ORAL CAPSULE DELAYED RELEASE 1 tablet by mo uth daily for GERD OMEPRAZOLE 74386852855 No Longer Active Adam Yates MD Active ZOFRAN 8 MG ORAL TABLET 1 tab by mouth every 12 hours prn 4 ONDANSETRON HCL 74986911658 No Longer Active Adam Yates MD Active PHENADOZ 25 MG RECTAL SUPPOSITORY 1 every 4 hrs. PRN 2 PROMETHAZINE HCL 11432933408 No Longer Active Adam Yates MD A ctive POTASSIUM CHLORIDE 20 MEQ ORAL PACKET by mouth twice a day prn 2 POTASSIUM CHLORIDE 69627807122 No Longer Active Adam Carpenter MD Active PROMETHAZINE HCL 25 MG ORAL TABLET 1 Q. 4 hr. PRN PROMETHAZINE HCL 70797187258 No Longer Active Adam Yates MD Active INNOPRAN XL 120 MG ORAL CAPSULE EXTENDED RELEASE 24 HO UR Take one by mouth daily PROPRANOLOL HCL SR BEADS 36917536533 No Longer Active Adam Yates MD Active FLAGYL 500 MG ORAL TABLET 1 pill by mouth three times daily, for diarrhea METRONIDAZOLE 73540626546 No Longer Active Hope landers MD PhD Active DYAZIDE 37.5-25 MG ORAL CAPSULE 1 qd TRIA MTERENE-HCTZ 56199376108 No Longer Active Hope Benavidez MD PhD Active PROZAC 20 MG ORAL CAPSULE 1 q d FLUOXETINE HCL 97021094365 No Longer Active Hope Benavidez MD PhD Active SIMVASTATIN 40 MG ORAL TABLET 1 qd SIMVAS TATIN 08799712448 No Longer Active Adam Yates MD Active MELOXICAM 15 MG ORAL TABLET 1 qd MELOXICAM 24891696137 No Longer Active Adam Yates MD Active EXCEDRIN EXTRA STRENGTH 250-250-65 MG ORAL TABLET 1-2 q6h ME N headache [id number]-[id number] 55482334440 Active Hope Benavidez MD PhD Active FLAGYL 500 MG ORAL TABLET 1 qid METRONIDAZOL E 99901498243 No Longer Active Adam Yates MD Active LEVAQUIN 750 MG ORAL TABLET 1 qd LEVOFLOXAC IN 94415598855 No Longer Active Adam Yates MD Active ADULT ASPIRIN LOW STRENGTH 81 MG ORAL TABLET DISINTEGRATING 1 qd ASPIRIN 94651046442 Active Hope Benavidez MD PhD Active LEVAQUIN 750 MG ORAL TABLET 1 qd LEVAQUIN 750 MG ORAL TABLET 042930 LEVOFLOXACIN Inactive FLAGYL 500 MG ORAL TABLET 1 qid FLAGYL 500 MG ORAL TABLET 070279 METRONIDAZOLE Inactive MELOXICAM 15 MG ORAL TABLET 1 qd MELOXICAM 15 MG ORAL TABLET 174272 MELOXICAM Inactive SIMVASTATIN 40 MG ORAL TABLET 1 qd SIMVASTATIN 40 MG ORAL TABLET 559471 SIMVASTATIN Inactive PROZAC 20 MG ORAL CAPSULE 1 q d PROZAC 20 MG ORAL CAPSULE 948926 FLUOXETINE HCL Inactive DYAZIDE 37.5-25 MG ORAL CAPSULE 1 qd 5 DYAZIDE 37.5-25 MG ORAL CAPSULE 060640 TRIAMTERENE-HCTZ Inactive INNOPRAN XL 120 MG ORAL CAPSULE EXTENDED RELEASE 24 HO UR Take one by mouth daily INNOPRAN XL 120 MG ORAL CAPSULE EXTENDED RELEASE 24 HOUR PROPRANOLOL HCL SR BEADS Inactive PROMETHAZINE HCL 25 MG ORAL TABLET 1 Q. 4 hr. PRN 2013 PROMETHAZINE HCL 25 MG ORAL TABLET 816243 PROMETHAZINE HCL Inactive POTASSIUM CHLORIDE 20 MEQ ORAL PACKET by mouth twice a day prn 2 POTASSIUM CHLORIDE 20 MEQ ORAL PACKET 3859583 POTASSIUM CHLORIDE Inactive PHENADOZ 25 MG RECTAL SUPPOSITORY 1 every 4 hrs. PRN 2 PHENADOZ 25 MG RECTAL SUPPOSITORY 975062 PROMETHAZINE HCL Inactive ZOFRAN 8 MG ORAL TABLET 1 tab by mouth every 12 hours prn 4 ZOFRAN 8 MG ORAL TABLET 102502 ONDANSETRON HCL Inactive OMEPRAZOLE 20 MG ORAL CAPSULE DELAYED RELEASE 1 tablet by [facility] daily for GERD OMEPRAZOLE 20 MG ORAL CAPSULE DELAYED RELEASE 19 8051 OMEPRAZOLE Inactive CYCLOBENZAPRINE HCL 10 MG ORAL TABLET 1 tablet by mout h three times daily as needed for headaches CYCLOBENZAPRINE HCL 10 MG ORAL TABLET 509380 CYCLOBENZAPRINE HCL Inactive VITAMIN D3 4000 IU 1 tab 3 times daily VITAMIN D3 4000 IU Inactive PROPRANOLOL HCL 80 MG ORAL TABLET 1 tab tue. and thur. PROPRANOLOL HCL 80 MG ORAL TABLET 530695 PROPRANOLOL HCL Inacti ve CYANOCOBALAMIN 1000 MCG/ML INJECTION SOLUTION 1 injection ev ruben 2 weeks CYANOCOBALAMIN 1000 MCG/ML INJECTION SOLUTION 30 9594 CYANOCOBALAMIN Inactive MAGNESIUM GLUCONATE 250 MG ORAL TABLET 1 tab tid 23/10/23 MAGNESIUM GLUCONATE 250 MG ORAL TABLET 155400 MAGNESIUM GLUCONATE Inactive LOMOTIL 2.5-0.025 MG ORAL TABLET 1 tab by mouth prn 23/10/23 LOMOTIL 2.5-0.025 MG ORAL TABLET 5448071 DIPHENOXYLATE-ATROPINE Inac tive FLORANEX ORAL PACKET 1 pack three times daily, for bowel health FLORANEX ORAL PACKET 46322468691 LACTOBACILLUS Inactive IRON 325 (65 Fe) MG ORAL TABLET 1 every other day 2015 IRON 325 (65 Fe) MG ORAL TABLET 579040 FERROUS SULFATE Inactive FLAGYL 500 MG ORAL TABLET 1 pill by mouth three times daily, for diarrhea FLAGYL 500 MG ORAL TABLET 788858 METRONIDAZOLE I nactive BACTRIM DS 800-160 MG ORAL TABLET 1 pill by mouth twice claudio y, for UTI BACTRIM DS 800-160 MG ORAL TABLET 080451 SULFAMETHOXAZOLE-TRIMETHOPRIM Inactive Advance Directives Directive Description Start [...] ... - Chemistry sodium, serum 141 mmol/L 285-921 3888/01/10 potassium, serum 3.7 mmol/L 3.5-5.2 chloride, serum 101 mmol/L 98-107 carbon dioxide, venous blood 31.0 mmol/L 21.0-32 .0 blood glucose 96 mg/dL 65-95 calcium, serum 9.5 mg/dL 8.5-10.1 urea nitrogen, blood 21 mg/dL 7-18 creatinine, serum 1.40 mg/dL 0.60-1.30 Estimated Glomerular Filtration Rate (calc) 39 (?) mL/min/1.73m2 = OR > 60 mL/min cholesterol, serum 211 mg/dL 436-877 9631/01/10 triglyceride, serum, fasting 77 mg/dL 30-200 HDL [...] ... - Chemistry sodium, serum 142 mmol/L 021-774 9175/04/16 carbon dioxide, venous blood 30.0 mmol/L 21.0-32 [...] - Chelle radha sodium, serum 142 mmol/L 967-433 7861/11/02 potassium, serum 3.4 mmol/L 3.5-5.2 chloride, serum [...] mg/dL Encounters Code Encounter Date Provider Facility CPT-66077 Level 4 Est. Patient 15:35:24 REGISTERED PRIVATE DUTY NURSE Adam Yates MD [facility] CPT-70179 Level 3 New Patient 12:08:54 REGISTERED PRIVATE DUTY NURSE Adam Yates MD [facility] CPT-04058 [id number] Vst-Est Level IV 19:48:30 REGISTERED PRIVATE DUTY NURSE Tracy Holt [facility] CPT-48583 [id number] Vst-Est Level III 14:29:19 CDT Fiorella Holt [facility] CPT-28912 Level 2 Est. Patient 14:58:26 CDT Kylie boyd [facility] CPT-02800 Level 3 Est. Patient 08:15:24 REGISTERED PRIVATE DUTY NURSE Kylie boyd [facility] CPT-03793 Level 2 Est. Patient 14:27:16 REGISTERED PRIVATE DUTY NURSE [facility]d [facility] CPT-65432 Level 3 Est. Patient 17:54:48 CDT Kylie boyd [facility] CPT-46429 Level 3 Est. Patient 16:26:30 CDT Kina blackmon [facility] CPT-32085 Level 3 New Patient 16:22:01 REGISTERED PRIVATE DUTY NURSE Adam Yates MD [facility] CPT-12709 Level 4 Est. Patient 17:00:48 CDT Kylie boyd [facility] CPT-62973 Level 3 Est. Patient 13:15:54 CDT Kylie boyd [facility] CPT-01419 Level 3 Est. Patient 09:10:11 CDT Kylie Lund [facility] CPT-08135 Level 4 Est. Patient 12:08:30 REGISTERED PRIVATE DUTY NURSE Hope cohn MD [facility] CPT-87768 Level 4 Est. Patient 19:08:42 REGISTERED PRIVATE DUTY NURSE Hope cohn MD PhD [facility] CPT-58492 Level 4 Est. Patient 20:04:51 CDT Hope cohn MD PhD [facility] CPT-00086 Level 3 New Patient 01:46:11 REGISTERED PRIVATE DUTY NURSE Hope landers MD PhD [facility] Procedures Code Procedure Name Date Entry Date Standard Desc ription CPT-95581 Postop F/U Visit 15:45:41 CDT CPT-61313 Sono Soft Tissue Head and Neck - XRAY US E ONLY 11:56:06 REGISTERED PRIVATE DUTY NURSE CPT-12046 Abx/Therapy Injection 09:40:08 REGISTERED PRIVATE DUTY NURSE CPT-J0897 Prolia 60 mg 09:40:08 REGISTERED PRIVATE DUTY NURSE CPT-64646 First Vx - Ix admin for Medicare patients 02/08 10:02:45 CDT CPT-88396 Fluzone Quadrivalent Intramuscular Suspe nsion 0.5 ML 10:02:45 CDT CPT-40544 Magnesium - LAB USE ONLY 09:41:00 CDT 12/09 CPT-71920 Renal Panel - LAB USE ONLY 09:41:00 CDT 201 09/17/01 CPT-44167 Venipuncture Draw Fee 09:41:00 CDT CPT-79324 Calcium - LAB USE ONLY 17:25:11 CDT CPT-J0897 Prolia 60 mg 15:10:59 CDT CPT-05379 Abx/Therapy Injection 15:10:59 CDT CPT-G0439 [facility] Annual Wellness Exam 14:29:19 CDT CPT-74492 Venipuncture Draw Fee 10:59:04 CDT CPT-30403 CMP - LAB USE ONLY 10:59:04 CDT CPT-32047 CBC with Diff - LAB USE ONLY 10:59:03 CDT 2 CPT-J0897 Prolia 60 mg 15:46:54 REGISTERED PRIVATE DUTY NURSE CPT-69183 Abx/Therapy Injection 15:46:54 REGISTERED PRIVATE DUTY NURSE CPT-63542 Microalbumin - LAB USE ONLY 09:41:32 REGISTERED PRIVATE DUTY NURSE 20 23/01/15 CPT-27392 Free T4 - LAB USE ONLY 09:41:32 REGISTERED PRIVATE DUTY NURSE CPT-05499 TSH - LAB USE ONLY 09:41:32 REGISTERED PRIVATE DUTY NURSE CPT-41677 BMP - LAB USE ONLY 09:41:32 REGISTERED PRIVATE DUTY NURSE CPT-24510 Venipuncture Draw Fee 09:41:32 REGISTERED PRIVATE DUTY NURSE CPT-47647 First Vx - Ix admin for Medicare patients 11:19:30 CDT CPT-77070 Fluzone High-Dose Intramuscular Suspension 12/07 11:19:30 CDT CPT-J0897 Prolia 60 mg 14:55:42 CDT CPT-19882 Abx/Therapy Injection 14:55:42 CDT CPT-67387 Bone Density - XRAY USE ONLY 10:27:12 CDT 2 CPT-G0439 Subsequent Annual Wellness Exam 17:54:53 CDT CPT-34230 Foot, left, comp min 3V - XRAY USE ONLY 12:22:49 CDT CPT-G0009 Administration of Pneumococcal Vaccine 3 12:18:00 CDT CPT-88897 Pneumovax 23 Injection Injectable 25 MCG /0.5ML 12:18:00 CDT CPT-J0897 Prolia 60 mg 14:14:16 REGISTERED PRIVATE DUTY NURSE CPT-97929 Abx/Therapy Injection 14:14:15 REGISTERED PRIVATE DUTY NURSE CPT-49874 Lipid - LAB USE ONLY 10:01:52 REGISTERED PRIVATE DUTY NURSE 2 CPT-72841 Calcium - LAB USE ONLY 10:01:51 REGISTERED PRIVATE DUTY NURSE CPT-10568 Venipuncture Draw Fee 10:01:51 REGISTERED PRIVATE DUTY NURSE CPT-LR Lesion Removal 16:22:01 REGISTERED PRIVATE DUTY NURSE CPT-05301 TSH - LAB USE ONLY 14:26:02 CDT CPT-52996 CMP - LAB USE ONLY 14:26:01 CDT CPT-23668 CBC with Diff - LAB USE ONLY 14:26:01 CDT 2 CPT-63034 Venipuncture Draw Fee 14:26:01 CDT CPT-00813 First Vx - Ix admin for Medicare patients 13:27:08 CDT CPT-27650 Fluzone High-Dose Intramuscular Suspension 11/26 13:27:08 CDT CPT-G0438 Initial Annual Wellness Exam 14:19:57 CD T CPT-G0009 Administration of Pneumococcal Vaccine 9 11:36:25 CDT CPT-36781 Prevnar 13 Intramuscular Suspension 1 1:36:25 CDT CPT-53055 Prevnar 13 Intramuscular Suspension 1 0:40:58 CDT CPT-J0897 Prolia 60 mg 10:37:16 CDT CPT-79535 Abx/Therapy Injection 10:37:16 CDT CPT-J0897 Prolia 60 mg 16:09:34 REGISTERED PRIVATE DUTY NURSE CPT-J0897 Prolia 60 mg 11:10:35 REGISTERED PRIVATE DUTY NURSE CPT-60256 Abx/Therapy Injection 11:10:35 REGISTERED PRIVATE DUTY NURSE CPT-000 Give Appropriate Flu Vaccine 17:01:15 REGISTERED PRIVATE DUTY NURSE 2 CPT-77525 Fluzone High Dose (65+) 15:03:08 REGISTERED PRIVATE DUTY NURSE 02/15 CPT-39854 Immunization Single Admin 15:03:08 REGISTERED PRIVATE DUTY NURSE 2014 CPT-OV Office Visit 15:58:06 CDT CPT-J0897 Prolia 60 mg 08:45:38 CDT CPT-39390 Abx/Therapy Injection 08:45:38 CDT CPT-J3420 Vitamin B12 1000mcg (Cyanocobalamin) 09:26:20 REGISTERED PRIVATE DUTY NURSE CPT-12866 Abx/Therapy Injection 09:26:20 REGISTERED PRIVATE DUTY NURSE CPT-J3420 Vitamin B12 1000mcg (Cyanocobalamin) 09:44:40 REGISTERED PRIVATE DUTY NURSE CPT-42994 Abx/Therapy Injection 09:44:40 REGISTERED PRIVATE DUTY NURSE CPT-J3420 Vitamin B12 1000mcg (Cyanocobalamin) 09:15:54 REGISTERED PRIVATE DUTY NURSE CPT-07069 Abx/Therapy Injection 09:15:54 REGISTERED PRIVATE DUTY NURSE CPT-J3420 Vitamin B12 1000mcg (Cyanocobalamin) 09:46:44 REGISTERED PRIVATE DUTY NURSE CPT-47216 Abx/Therapy Injection 09:46:44 REGISTERED PRIVATE DUTY NURSE CPT-J3420 Vitamin B12 1000mcg (Cyanocobalamin) 09:47:34 REGISTERED PRIVATE DUTY NURSE CPT-68036 Abx/Therapy Injection 09:47:34 REGISTERED PRIVATE DUTY NURSE CPT-J3420 Vitamin B12 1000mcg (Cyanocobalamin) 14:35:50 REGISTERED PRIVATE DUTY NURSE CPT-J3420 Vitamin B12 1000mcg (Cyanocobalamin) 09:25:05 REGISTERED PRIVATE DUTY NURSE CPT-96360 Abx/Therapy Injection 09:25:05 REGISTERED PRIVATE DUTY NURSE CPT-G0008 Administration of Influenza Virus Vaccine 13:36:47 CDT CPT-22858 Fluzone High-Dose Intramuscular Suspension 11/15 13:36:47 CDT CPT-J0897 Prolia 60 mg 08:50:41 CDT CPT-46200 Abx/Therapy Injection 08:50:41 CDT CPT-22228 Bone Density 12:06:12 CDT CPT-21986 Bone Density 08:54:40 CDT CPT-OV Office Visit 15:37:02 CDT CPT-38059 Postop F/U Visit 15:47:49 CDT CPT-80709 Postop F/U Visit 15:21:02 CDT CPT-TCMH Transitional Care Mgmt-High 07:52:27 CDT 20 20/06/01 CPT-82232 Venipuncture Draw Fee 13:51:18 CDT CPT-10540 Venipuncture Draw Fee 10:14:55 REGISTERED PRIVATE DUTY NURSE CPT-83837 Venipuncture Draw Fee 13:39:45 REGISTERED PRIVATE DUTY NURSE CPT-OV Office Visit 15:11:22 REGISTERED PRIVATE DUTY NURSE CPT-17244 Venipuncture Draw Fee 09:20:49 REGISTERED PRIVATE DUTY NURSE CPT-22982 Venipuncture Draw Fee 16:52:15 REGISTERED PRIVATE DUTY NURSE CPT-59599 Venipuncture Draw Fee 10:37:24 REGISTERED PRIVATE DUTY NURSE CPT-25752 Venipuncture Draw Fee 08:21:21 REGISTERED PRIVATE DUTY NURSE CPT-09435 Venipuncture Draw Fee 08:30:20 REGISTERED PRIVATE DUTY NURSE CPT-10304 Venipuncture Draw Fee 14:53:21 REGISTERED PRIVATE DUTY NURSE CPT-38380 Venipuncture Draw Fee 09:40:56 REGISTERED PRIVATE DUTY NURSE CPT-85001 Venipuncture Draw Fee 10:30:47 REGISTERED PRIVATE DUTY NURSE CPT-02540 Venipuncture Draw Fee 10:46:17 REGISTERED PRIVATE DUTY NURSE CPT-18604 Venipuncture Draw Fee 11:12:45 REGISTERED PRIVATE DUTY NURSE CPT-75818 Venipuncture Draw Fee 09:53:33 REGISTERED PRIVATE DUTY NURSE CPT-99109 Venipuncture Draw Fee 11:53:51 REGISTERED PRIVATE DUTY NURSE CPT-92727 Venipuncture Draw Fee 10:33:50 REGISTERED PRIVATE DUTY NURSE CPT-02647 Venipuncture Draw Fee 10:05:01 REGISTERED PRIVATE DUTY NURSE CPT-12998 Venipuncture Draw Fee 14:32:52 REGISTERED PRIVATE DUTY NURSE CPT-92360 Venipuncture Draw Fee 09:46:13 REGISTERED PRIVATE DUTY NURSE CPT-13417 Venipuncture Draw Fee 11:34:27 REGISTERED PRIVATE DUTY NURSE CPT-25637 Venipuncture Draw Fee 13:17:16 REGISTERED PRIVATE DUTY NURSE CPT-27741 Venipuncture Draw Fee 12:05:39 CDT CPT-43842 Venipuncture Draw Fee 12:49:12 CDT CPT-40235 Venipuncture Draw Fee 12:37:18 CDT CPT-74480 Venipuncture Draw Fee 10:57:11 CDT CPT-01937 Venipuncture Draw Fee 13:47:40 CDT CPT-77728 Venipuncture Draw Fee 10:02:17 CDT CPT-83516 TB Tubersol 17:32:32 CDT CPT-OV Office Visit 16:21:53 CDT CPT-OV Office Visit 15:49:22 CDT CPT-OV Office Visit 17:16:31 CDT CPT-OV Office Visit 10:43:31 CDT
--- OUTSIDE RECORDS SUMMARY | 2019-02-09 11:51 | XMS REPORT | Clinical Summary ---
Author Author Admin, Florecita Munoz Organization [facility] Address Unknown Phone Unavailable Allergies, Adverse Reactions, [...] Sebaceous cyst, scalp 706.2 Resolved Kylie Yokum [employer] Sebaceous cyst Cervical lymphadenopathy, anterior, left 785.6 Resolv ed Kylie Yokum [employer] Enlargement of lymph nodes Need for prophylactic vaccination and inoculation against in fluenza V04.81 Resolved Adam Yates MD Need for prophylactic vaccination and inoculation against influenza Preventive health care V70.0 Resolved Kylie Lundu m [employer] GR[employer] Routine general medical examination at a health care facility Thyroid nodule, left 241.0 Resolved Selena Yates MD Nontoxic uninodular goiter Screening mammogram V76.12 Resolved Kylie Yokum A PRN Other screening mammogram Mandy 706.2 Resolved Kylie Yokum [employer] GR[employer] Sebaceous cyst Colon cancer, ascending 153.6 Resolved Kylie Yok um [employer] GR[employer] Malignant neoplasm of ascending colon Foot pain, left 729.5 Resolved Kylie Yokum FISH GRAD[employer] Pain in limb Splinter 919.6 Resolved Kylie Yokum FISH GRADER Superficial foreign body (splinter) of other, multiple, and unspecified sites, without major open wound and without mention of infection Rash 782.1 Resolved Kylie Yokum FISH GRADER Rash and other nonspecific skin eruption Cyst 706.2 Resolved Kylie Yokum FISH GRADER Sebaceous cyst Body Mass Index 23.0-23.9 Adult Refinement 2017 Kylie Yokum FISH GRADER Body Mass Index between 19-24, adult BMI [...] MD PhD GERD ICD-530.81 Inactive Kylie Holt [employer] GR[employer] 2015 Health maintenance exam ICD-V70.0 Inactive Adolfo Yates MD Anemia ICD-285.9 Inactive Kylie Holt [employer] GR[employer] 07/24 Hypomagnesemia ICD-275.2 Inactive Kylie Holt [employer] Weakness ICD-780.79 Inactive Hope Benavidez MD P [...] cyst, scalp ICD-706.2 Inactive Tracy hi Yokum FISH GRADER Cervical lymphadenopathy, anterior, left ICD-785.6 Inactive Kylie Yokum FISH GRADER Need for prophylactic vaccination and inoculation against in fluenza ICD-V04.81 Inactive Adam Yates MD Thyroid nodule, left ICD-241.0 Inactive Selena Yates MD Preventive health care ICD-V70.0 Inactive Ka thi Yokum FISH GRADER Mandy ICD-706.2 Inactive Kylie Yokum FISH GRADER 07/20 Colon cancer, ascending ICD-153.6 Inactive K athi Yokum FISH GRADER Splinter ICD-919.6 Inactive Kylie Yokum FISH GRADER 2017 Rash ICD-782.1 Inactive Kylie Yokum FISH GRADER 07/25 Cyst ICD-706.2 Inactive Kylie Yokum FISH GRADER 08/11 Screening mammogram ICD-V76.12 Inactive Kylie Yokum FISH GRADER Unspecified fall, initial encounter ICD-E888.9 Inactive Kylie Yokum FISH GRADER Eye pain, left ICD-379.91 Inactive Kylie Yokum FISH GRADER Pharyngitis, acute ICD-074.0 Inactive Kavin Yates MD Foot pain, left ICD-729.5 Inactive Kylie Yokum FISH GRADER Hypomagnesemia ICD-275.2 Inactive Adam Franklin MD Hypokalemia [...] arm as needed for pain DICLOFENAC SODIUM 69248753169 Active Kylie Holt APR N Active IMODIUM A-D 2 MG ORAL TABLET 1 tablet twice a day LOPERAMIDE HCL 76698887441 Active Kylie Holt APRN Active COQ10 100 MG ORAL CAPSULE 1 daily COENZYME Q10 323285 64035 Active Fay Alberts [facility] Active VITAMIN D3 2000 UNIT ORAL CAPSULE Melaleuca-One daily CHOLECALCIFEROL 87993705106 Active Kylie Holt APRN Active PROBIOTIC DAILY ORAL CAPSULE Take one daily PROBIO TIC PRODUCT 12125116637 Active Kylie Holt APRN Active IRON 325 (65 Fe) MG ORAL TABLET 1 every other day FERROUS SULFATE 61942443231 No Longer Active Kylie Holt APRN Active FLORANEX ORAL PACKET 1 pack three times daily, for bowel health LACTOBACILLUS 97109522082 No Longer Active Kylie Holt APRN Active LOMOTIL 2.5-0.025 MG ORAL TABLET 1 tab by mouth prn 23/10/23 DIPHENOXYLATE-ATROPINE 18693262782 No Longer Active Kylie Lundum AMY Active MAGNESIUM GLUCONATE 250 MG ORAL TABLET 1 tab tid 23/10/23 MAGNESIUM GLUCONATE 86470491865 No Longer Active Kylie Holt APRN Active CYANOCOBALAMIN 1000 MCG/ML INJECTION SOLUTION 1 injection ev ruben 2 weeks CYANOCOBALAMIN 91178095053 No Longer Active Kylie Lund um [employer] GR[employer] Active ATENOLOL 25 MG ORAL TABLET 1/2 pill by mouth daily, fo r headaches, blood pressure ATENOLOL 25003459629 Active Kylie Holt FISH GRADER Active PROPRANOLOL HCL 80 MG ORAL TABLET 1 tab tue. and thur. PROPRANOLOL HCL 48892889929 No Longer Active Hope Benavidez MD PhD A ctive VITAMIN D3 4000 IU 1 tab 3 times daily VITAMIN D3 4000 IU No Longer Active Hope Benavidez MD PhD Active BACTRIM DS 800-160 MG ORAL TABLET 1 pill by mouth twice claudio y, for UTI SULFAMETHOXAZOLE-TRIMETHOPRIM 94116506450 No Longer Active Hope Benavidez MD PhD Active PROLIA 60 MG/ML SUBCUTANEOUS SOLUTION 1 shot every 6 months for osteoprosis DENOSUMAB 07610802072 Active Hope Benavidez MD PhD Active CALCIUM + D + K 750-500-40 MG-UNT-MCG ORAL TABLET 1 tab by m [facility] twice daily CALCIUM-VITAMIN D-VITAMIN K 43615398018 Active Hope valdez MD PhD Active DAILY VALUE MULTIVITAMIN ORAL TABLET 1 tab by mouth twice daily 201 05/16/14 MULTIPLE VITAMIN 18996302877 Active Hope Benavidez MD PhD Acti ve FISH OIL 306 MG CAPS 1 tab by mouth three times daily OMEGA-3 FATTY ACIDS 33637445319 Active Hope Benavidez MD PhD Active LUTEIN 10 MG ORAL TABLET 1 tab daily LUTEIN 48482016 408 Active Hope Benavidez MD PhD Active TRIAMTERENE-HCTZ 37.5-25 MG ORAL TABLET 1 tab by mouth daily 10/22 TRIAMTERENE-HCTZ 92443690642 Active Kylieshubham Lundoliver FISH GRADER Active CYCLOBENZAPRINE HCL 10 MG ORAL TABLET 1 tablet by mout h three times daily as needed for headaches CYCLOBENZAPRINE HCL 73418173913 No Longer Active Adam Yates MD Active OMEPRAZOLE 20 MG ORAL CAPSULE DELAYED RELEASE 1 tablet by mo [facility] daily for GERD OMEPRAZOLE 07135683503 No Longer Active Adam Yates MD Active ZOFRAN 8 MG ORAL TABLET 1 tab by mouth every 12 hours prn 4 ONDANSETRON HCL 49438667834 No Longer Active Adam Yates MD Active PHENADOZ 25 MG RECTAL SUPPOSITORY 1 every 4 hrs. PRN 2 PROMETHAZINE HCL 37991451730 No Longer Active Adam Yates MD A ctive POTASSIUM CHLORIDE 20 MEQ ORAL PACKET by mouth twice a day prn 2 POTASSIUM CHLORIDE 43047558376 No Longer Active Adam Carpenter MD Active PROMETHAZINE HCL 25 MG ORAL TABLET 1 Q. 4 hr. PRN PROMETHAZINE HCL 21213046569 No Longer Active Adam Yates MD Active INNOPRAN XL 120 MG ORAL CAPSULE EXTENDED RELEASE 24 HO UR Take one by mouth daily PROPRANOLOL HCL SR BEADS 44596616657 No Longer Active Adam Yates MD Active FLAGYL 500 MG ORAL TABLET 1 pill by mouth three times daily, for diarrhea METRONIDAZOLE 36544989872 No Longer Active Hope landers MD PhD Active DYAZIDE 37.5-25 MG ORAL CAPSULE 1 qd TRIA MTERENE-HCTZ 68204928906 No Longer Active Hope Benavidez MD PhD Active PROZAC 20 MG ORAL CAPSULE 1 q d FLUOXETINE HCL 65698079561 No Longer Active Hope Benavidez MD PhD Active SIMVASTATIN 40 MG ORAL TABLET 1 qd SIMVAS TATIN 54904551592 No Longer Active Adam Yates MD Active MELOXICAM 15 MG ORAL TABLET 1 qd MELOXICAM 91521776661 No Longer Active Adam Yates MD Active EXCEDRIN EXTRA STRENGTH 250-250-65 MG ORAL TABLET 1-2 q6h WI N headache [id number] 42441955796 Active Hope Benavidez MD PhD Active FLAGYL 500 MG ORAL TABLET 1 qid METRONIDAZOL E 57585407446 No Longer Active Adam Yates MD Active LEVAQUIN 750 MG ORAL TABLET 1 qd LEVOFLOXAC IN 29049038955 No Longer Active Adam Yates MD Active ADULT ASPIRIN LOW STRENGTH 81 MG ORAL TABLET DISINTEGRATING 1 qd ASPIRIN 20566206505 Active Hope Benavidez MD PhD Active LEVAQUIN 750 MG ORAL TABLET 1 qd LEVAQUIN 750 MG ORAL TABLET 786431 LEVOFLOXACIN Inactive FLAGYL 500 MG ORAL TABLET 1 qid FLAGYL 500 MG ORAL TABLET 334650 METRONIDAZOLE Inactive MELOXICAM 15 MG ORAL TABLET 1 qd MELOXICAM 15 MG ORAL TABLET 227143 MELOXICAM Inactive SIMVASTATIN 40 MG ORAL TABLET 1 qd SIMVASTATIN 40 MG ORAL TABLET 801390 SIMVASTATIN Inactive PROZAC 20 MG ORAL CAPSULE 1 q d PROZAC 20 MG ORAL CAPSULE 249548 FLUOXETINE HCL Inactive DYAZIDE 37.5-25 MG ORAL CAPSULE 1 qd 5 DYAZIDE 37.5-25 MG ORAL CAPSULE 598062 TRIAMTERENE-HCTZ Inactive INNOPRAN XL 120 MG ORAL CAPSULE EXTENDED RELEASE 24 HO UR Take one by mouth daily INNOPRAN XL 120 MG ORAL CAPSULE EXTENDED RELEASE 24 HOUR PROPRANOLOL HCL SR BEADS Inactive PROMETHAZINE HCL 25 MG ORAL TABLET 1 Q. 4 hr. PRN 2013 PROMETHAZINE HCL 25 MG ORAL TABLET 686096 PROMETHAZINE HCL Inactive POTASSIUM CHLORIDE 20 MEQ ORAL PACKET by mouth twice a day prn 2 POTASSIUM CHLORIDE 20 MEQ ORAL PACKET 6358398 POTASSIUM CHLORIDE Inactive PHENADOZ 25 MG RECTAL SUPPOSITORY 1 every 4 hrs. PRN PHENADOZ 25 MG RECTAL SUPPOSITORY 417309 PROMETHAZINE HCL Inactive ZOFRAN 8 MG ORAL TABLET 1 tab by mouth every 12 hours prn 4 ZOFRAN 8 MG ORAL TABLET 785997 ONDANSETRON HCL Inactive OMEPRAZOLE 20 MG ORAL CAPSULE DELAYED RELEASE 1 tablet by mo uth daily for GERD OMEPRAZOLE 20 MG ORAL CAPSULE DELAYED RELEASE 19 8051 OMEPRAZOLE Inactive CYCLOBENZAPRINE HCL 10 MG ORAL TABLET 1 tablet by mout h three times daily as needed for headaches CYCLOBENZAPRINE HCL 10 MG ORAL TABLET 854559 CYCLOBENZAPRINE HCL Inactive VITAMIN D3 4000 IU 1 tab 3 times daily VITAMIN D3 4000 IU Inactive PROPRANOLOL HCL 80 MG ORAL TABLET 1 tab tue. and thur. PROPRANOLOL HCL 80 MG ORAL TABLET 341991 PROPRANOLOL HCL Inacti ve CYANOCOBALAMIN 1000 MCG/ML INJECTION SOLUTION 1 injection ev ruben 2 weeks CYANOCOBALAMIN 1000 MCG/ML INJECTION SOLUTION 30 9594 CYANOCOBALAMIN Inactive MAGNESIUM GLUCONATE 250 MG ORAL TABLET 1 tab tid 23/10/23 MAGNESIUM GLUCONATE 250 MG ORAL TABLET 125437 MAGNESIUM GLUCONATE Inactive LOMOTIL 2.5-0.025 MG ORAL TABLET 1 tab by mouth prn 23/10/23 LOMOTIL 2.5-0.025 MG ORAL TABLET 3235009 DIPHENOXYLATE-ATROPINE Inac tive FLORANEX ORAL PACKET 1 pack three times daily, for bowel health FLORANEX ORAL PACKET 56222840990 LACTOBACILLUS Inactive IRON 325 (65 Fe) MG ORAL TABLET 1 every other day 2015 IRON 325 (65 Fe) MG ORAL TABLET 945318 FERROUS SULFATE Inactive FLAGYL 500 MG ORAL TABLET 1 pill by mouth three times daily, for diarrhea FLAGYL 500 MG ORAL TABLET 550702 METRONIDAZOLE I nactive BACTRIM DS 800-160 MG ORAL TABLET 1 pill by mouth twice claudio y, for UTI BACTRIM DS 800-160 MG ORAL TABLET 303890 SULFAMETHOXAZOLE-TRIMETHOPRIM Inactive Advance Directives Directive Description Start [...] ... - Chemistry sodium, serum 141 mmol/L 418-851 0424/01/10 potassium, serum 3.7 mmol/L 3.5-5.2 chloride, serum 101 mmol/L 98-107 carbon dioxide, venous blood 31.0 mmol/L 21.0-32 .0 blood glucose 96 mg/dL 65-95 calcium, serum 9.5 mg/dL 8.5-10.1 urea nitrogen, blood 21 mg/dL 7-18 creatinine, serum 1.40 mg/dL 0.60-1.30 Estimated Glomerular Filtration Rate (calc) 39 (?) mL/min/1.73m2 = OR > 60 mL/min cholesterol, serum 211 mg/dL 890-067 7721/01/10 triglyceride, serum, fasting 77 mg/dL 30-200 HDL [...] ... - Chemistry sodium, serum 142 mmol/L 074-944 1947/04/16 carbon dioxide, venous blood 30.0 mmol/L 21.0-32 [...] - Chelle radha sodium, serum 142 mmol/L 218-936 5707/11/02 potassium, serum 3.4 mmol/L 3.5-5.2 chloride, serum 101 mmol/L 98-107 carbon dioxide, venous blood 31.5 mmol/L 21.0-32 .0 creatinine, serum 1.35 mg/dL 0.60-1.30 blood glucose 81 mg/dL 65-95 urea nitrogen, blood 17 mg/dL 7-18 calcium, serum 8.1 mg/dL 8.5-10.1 Estimated Glomerular Filtration Rate (calc) 41 (?) mL/min/1.73m2 = OR > 60 mL/min Office Visit: [facility] - SUB - Basic LDL target level 130 mg/dL Office Visit: [facility] - SUB - Chemistry HDL cholesterol, serum, target level 40 mg/dL cholesterol, target level 200 mg/dL triglyceride, target level 150 mg/dL Encounters Code Encounter Date Provider Facility CPT-63813 Level 4 Est. Patient 15:35:24 PHOTO FINISH PHOTOGRAPHER Adam Yates MD [facility] CPT-60548 Level 3 New Patient 12:08:54 PHOTO FINISH PHOTOGRAPHER Adam Yates MD [facility] CPT-58783 40797-[id number] Vst-Est Level IV 19:48:30 PHOTO FINISH PHOTOGRAPHER Tracy Holt [facility] CPT-15266 40387-Beb Vst-Est Level III 14:29:19 CDT Fiorella Holt [facility] CPT-35873 Level 2 Est. Patient 14:58:26 CDT Kylie boyd [facility] CPT-30800 Level 3 Est. Patient 08:15:24 PHOTO FINISH PHOTOGRAPHER Kylie boyd [facility] CPT-91251 Level 2 Est. Patient 14:27:16 PHOTO FINISH PHOTOGRAPHER Kylie Lund um [facility] CPT-97554 Level 3 Est. Patient 17:54:48 CDT Kylie boyd [facility] CPT-43646 Level 3 Est. Patient 16:26:30 CDT Kina blackmon [facility] CPT-99675 Level 3 New Patient 16:22:01 PHOTO FINISH PHOTOGRAPHER Adam Yates MD [facility] CPT-74454 Level 4 Est. Patient 17:00:48 CDT Kylie Lund [facility] CPT-22092 Level 3 Est. Patient 13:15:54 CDT Kylie Lund [facility] CPT-65715 Level 3 Est. Patient 09:10:11 CDT Kylie Lund [facility] CPT-03731 Level 4 Est. Patient 12:08:30 PHOTO FINISH PHOTOGRAPHER Hope cohn MD [facility] CPT-80413 Level 4 Est. Patient 19:08:42 PHOTO FINISH PHOTOGRAPHER Hope cohn MD PhD [facility] CPT-13691 Level 4 Est. Patient 20:04:51 CDT Hope cohn MD [facility] CPT-95486 Level 3 New Patient 01:46:11 PHOTO FINISH PHOTOGRAPHER Hope landers MD PhD [facility] Procedures Code Procedure Name Date Entry Date Standard Desc ription CPT-73802 Postop F/U Visit 15:45:41 CDT CPT-99082 Sono Soft Tissue Head and Neck - XRAY US E ONLY 11:56:06 PHOTO FINISH PHOTOGRAPHER CPT-30697 Abx/Therapy Injection 09:40:08 PHOTO FINISH PHOTOGRAPHER CPT-J0897 Prolia 60 mg 09:40:08 PHOTO FINISH PHOTOGRAPHER CPT-09785 First Vx - Ix admin for Medicare patients 02/08 10:02:45 CDT CPT-14610 Fluzone Quadrivalent Intramuscular Suspe nsion 0.5 ML 10:02:45 CDT CPT-10744 Magnesium - LAB USE ONLY 09:41:00 CDT 12/09 CPT-41639 Renal Panel - LAB USE ONLY 09:41:00 CDT 201 09/17/01 CPT-37669 Venipuncture Draw Fee 09:41:00 CDT CPT-27402 Calcium - LAB USE ONLY 17:25:11 CDT CPT-J0897 Prolia 60 mg 15:10:59 CDT CPT-45834 Abx/Therapy Injection 15:10:59 CDT CPT-G0439 [facility] Annual Wellness Exam 14:29:19 CDT CPT-41349 Venipuncture Draw Fee 10:59:04 CDT CPT-40219 CMP - LAB USE ONLY 10:59:04 CDT CPT-34991 CBC with Diff - LAB USE ONLY 10:59:03 CDT 2 CPT-J0897 Prolia 60 mg 15:46:54 PHOTO FINISH PHOTOGRAPHER CPT-58352 Abx/Therapy Injection 15:46:54 PHOTO FINISH PHOTOGRAPHER CPT-48639 Microalbumin - LAB USE ONLY 09:41:32 PHOTO FINISH PHOTOGRAPHER 20 23/01/15 CPT-14609 Free T4 - LAB USE ONLY 09:41:32 PHOTO FINISH PHOTOGRAPHER CPT-26030 TSH - LAB USE ONLY 09:41:32 PHOTO FINISH PHOTOGRAPHER CPT-15604 BMP - LAB USE ONLY 09:41:32 PHOTO FINISH PHOTOGRAPHER CPT-26369 Venipuncture Draw Fee 09:41:32 PHOTO FINISH PHOTOGRAPHER CPT-78506 First Vx - Ix admin for Medicare patients 11:19:30 CDT CPT-34073 Fluzone High-Dose Intramuscular Suspension 12/07 11:19:30 CDT CPT-J0897 Prolia 60 mg 14:55:42 CDT CPT-30392 Abx/Therapy Injection 14:55:42 CDT CPT-58383 Bone Density - XRAY USE ONLY 10:27:12 CDT 2 CPT-G0439 Subsequent Annual Wellness Exam 17:54:53 CDT CPT-39717 Foot, left, comp min 3V - XRAY USE ONLY 12:22:49 CDT CPT-G0009 Administration of Pneumococcal Vaccine 3 12:18:00 CDT CPT-02912 Pneumovax 23 Injection Injectable 25 MCG /0.5ML 12:18:00 CDT CPT-J0897 Prolia 60 mg 14:14:16 PHOTO FINISH PHOTOGRAPHER CPT-52824 Abx/Therapy Injection 14:14:15 PHOTO FINISH PHOTOGRAPHER CPT-92614 Lipid - LAB USE ONLY 10:01:52 PHOTO FINISH PHOTOGRAPHER 2 CPT-62597 Calcium - LAB USE ONLY 10:01:51 PHOTO FINISH PHOTOGRAPHER CPT-47880 Venipuncture Draw Fee 10:01:51 PHOTO FINISH PHOTOGRAPHER CPT-LR Lesion Removal 16:22:01 PHOTO FINISH PHOTOGRAPHER CPT-98189 TSH - LAB USE ONLY 14:26:02 CDT CPT-97082 CMP - LAB USE ONLY 14:26:01 CDT CPT-65132 CBC with Diff - LAB USE ONLY 14:26:01 CDT 2 CPT-82027 Venipuncture Draw Fee 14:26:01 CDT CPT-52249 First Vx - Ix admin for Medicare patients 13:27:08 CDT CPT-84399 Fluzone High-Dose Intramuscular Suspension 11/26 13:27:08 CDT CPT-G0438 Initial Annual Wellness Exam 14:19:57 CD T CPT-G0009 Administration of Pneumococcal Vaccine 9 11:36:25 CDT CPT-25443 Prevnar 13 Intramuscular Suspension 1 1:36:25 CDT CPT-27439 Prevnar 13 Intramuscular Suspension 1 0:40:58 CDT CPT-J0897 Prolia 60 mg 10:37:16 CDT CPT-62167 Abx/Therapy Injection 10:37:16 CDT CPT-J0897 Prolia 60 mg 16:09:34 PHOTO FINISH PHOTOGRAPHER CPT-J0897 Prolia 60 mg 11:10:35 PHOTO FINISH PHOTOGRAPHER CPT-25711 Abx/Therapy Injection 11:10:35 PHOTO FINISH PHOTOGRAPHER CPT-000 Give Appropriate Flu Vaccine 17:01:15 PHOTO FINISH PHOTOGRAPHER 2 CPT-38485 Fluzone High Dose (65+) 15:03:08 PHOTO FINISH PHOTOGRAPHER 02/15 CPT-83670 Immunization Single Admin 15:03:08 PHOTO FINISH PHOTOGRAPHER 2014 CPT-OV Office Visit 15:58:06 CDT CPT-J0897 Prolia 60 mg 08:45:38 CDT CPT-87688 Abx/Therapy Injection 08:45:38 CDT CPT-J3420 Vitamin B12 1000mcg (Cyanocobalamin) 09:26:20 PHOTO FINISH PHOTOGRAPHER CPT-78064 Abx/Therapy Injection 09:26:20 PHOTO FINISH PHOTOGRAPHER CPT-J3420 Vitamin B12 1000mcg (Cyanocobalamin) 09:44:40 PHOTO FINISH PHOTOGRAPHER CPT-57769 Abx/Therapy Injection 09:44:40 PHOTO FINISH PHOTOGRAPHER CPT-J3420 Vitamin B12 1000mcg (Cyanocobalamin) 09:15:54 PHOTO FINISH PHOTOGRAPHER CPT-51125 Abx/Therapy Injection 09:15:54 PHOTO FINISH PHOTOGRAPHER CPT-J3420 Vitamin B12 1000mcg (Cyanocobalamin) 09:46:44 PHOTO FINISH PHOTOGRAPHER CPT-67207 Abx/Therapy Injection 09:46:44 PHOTO FINISH PHOTOGRAPHER CPT-J3420 Vitamin B12 1000mcg (Cyanocobalamin) 09:47:34 PHOTO FINISH PHOTOGRAPHER CPT-13807 Abx/Therapy Injection 09:47:34 PHOTO FINISH PHOTOGRAPHER CPT-J3420 Vitamin B12 1000mcg (Cyanocobalamin) 14:35:50 PHOTO FINISH PHOTOGRAPHER CPT-J3420 Vitamin B12 1000mcg (Cyanocobalamin) 09:25:05 PHOTO FINISH PHOTOGRAPHER CPT-37367 Abx/Therapy Injection 09:25:05 PHOTO FINISH PHOTOGRAPHER CPT-G0008 Administration of Influenza Virus Vaccine 13:36:47 CDT CPT-26905 Fluzone High-Dose Intramuscular Suspension 11/15 13:36:47 CDT CPT-J0897 Prolia 60 mg 08:50:41 CDT CPT-71781 Abx/Therapy Injection 08:50:41 CDT CPT-84454 Bone Density 12:06:12 CDT CPT-75316 Bone Density 08:54:40 CDT CPT-OV Office Visit 15:37:02 CDT CPT-77331 Postop F/U Visit 15:47:49 CDT CPT-44793 Postop F/U Visit 15:21:02 CDT CPT-TCMH Transitional Care Mgmt-High 07:52:27 CDT 20 20/06/01 CPT-86614 Venipuncture Draw Fee 13:51:18 CDT CPT-84888 Venipuncture Draw Fee 10:14:55 PHOTO FINISH PHOTOGRAPHER CPT-22506 Venipuncture Draw Fee 13:39:45 PHOTO FINISH PHOTOGRAPHER CPT-OV Office Visit 15:11:22 PHOTO FINISH PHOTOGRAPHER CPT-60794 Venipuncture Draw Fee 09:20:49 PHOTO FINISH PHOTOGRAPHER CPT-59280 Venipuncture Draw Fee 16:52:15 PHOTO FINISH PHOTOGRAPHER CPT-87115 Venipuncture Draw Fee 10:37:24 PHOTO FINISH PHOTOGRAPHER CPT-02369 Venipuncture Draw Fee 08:21:21 PHOTO FINISH PHOTOGRAPHER CPT-15248 Venipuncture Draw Fee 08:30:20 PHOTO FINISH PHOTOGRAPHER CPT-78076 Venipuncture Draw Fee 14:53:21 PHOTO FINISH PHOTOGRAPHER CPT-98668 Venipuncture Draw Fee 09:40:56 PHOTO FINISH PHOTOGRAPHER CPT-58286 Venipuncture Draw Fee 10:30:47 PHOTO FINISH PHOTOGRAPHER CPT-89697 Venipuncture Draw Fee 10:46:17 PHOTO FINISH PHOTOGRAPHER CPT-96368 Venipuncture Draw Fee 11:12:45 PHOTO FINISH PHOTOGRAPHER CPT-00410 Venipuncture Draw Fee 09:53:33 PHOTO FINISH PHOTOGRAPHER CPT-78347 Venipuncture Draw Fee 11:53:51 PHOTO FINISH PHOTOGRAPHER CPT-27331 Venipuncture Draw Fee 10:33:50 PHOTO FINISH PHOTOGRAPHER CPT-28300 Venipuncture Draw Fee 10:05:01 PHOTO FINISH PHOTOGRAPHER CPT-56747 Venipuncture Draw Fee 14:32:52 PHOTO FINISH PHOTOGRAPHER CPT-83259 Venipuncture Draw Fee 09:46:13 PHOTO FINISH PHOTOGRAPHER CPT-87345 Venipuncture Draw Fee 11:34:27 PHOTO FINISH PHOTOGRAPHER CPT-95330 Venipuncture Draw Fee 13:17:16 PHOTO FINISH PHOTOGRAPHER CPT-02419 Venipuncture Draw Fee 12:05:39 CDT CPT-46412 Venipuncture Draw Fee 12:49:12 CDT CPT-08731 Venipuncture Draw Fee 12:37:18 CDT CPT-24479 Venipuncture Draw Fee 10:57:11 CDT CPT-86573 Venipuncture Draw Fee 13:47:40 CDT CPT-97890 Venipuncture Draw Fee 10:02:17 CDT CPT-37313 TB Tubersol 17:32:32 CDT CPT-OV Office Visit 16:21:53 CDT CPT-OV Office Visit 15:49:22 CDT CPT-OV Office Visit 17:16:31 CDT CPT-OV Office Visit 10:43:31 CDT
--- OUTSIDE RECORDS SUMMARY | 2019-02-09 11:51 | XMS REPORT | Clinical Summary ---
Author Author Admin, Florecita Munoz Organization [facility] Address Unknown Phone Unavailable Allergies, Adverse Reactions, [...] MD PhD Osteoporosis, unspecified Dysuria 788.1 Resolved oHpe Benavidez MD PhD Dysuria Vitamin D deficiency [...] Sebaceous cyst, scalp 706.2 Resolved Kylie Yokum [employer] Sebaceous cyst Cervical lymphadenopathy, anterior, left 785.6 Resolv ed Kylie Yokum [employer] Enlargement of lymph nodes Need for prophylactic vaccination and inoculation against in fluenza V04.81 Resolved Adam Yates MD Need for prophylactic vaccination and inoculation against influenza Preventive health care V70.0 Resolved Kylie Lundu m [employer] Routine general medical examination at a health care facility Thyroid nodule, left 241.0 Resolved Selena Yates MD Nontoxic uninodular goiter Screening mammogram V76.12 Resolved Kylie Yokum A PRN Other screening mammogram Mandy 706.2 Resolved Kylie Yokum [employer] Sebaceous cyst Colon cancer, ascending 153.6 Resolved Kylie Yok um [employer] Malignant neoplasm of ascending colon Foot pain, left 729.5 Resolved Kylie Yokum [employer] Pain in limb Splinter 919.6 Resolved Kylie Yokum [employer] Superficial foreign body (splinter) of other, multiple, and unspecified sites, without major open wound and without mention of infection Rash 782.1 Resolved Kylie Yokum [employer] Rash and other nonspecific skin eruption Cyst 706.2 Resolved Kylie Yokum [employer] Sebaceous cyst Body Mass Index 23.0-23.9 Adult Refinement 2017 Kylie Yokum [employer] Body Mass Index between 19-24, adult BMI [...] MD PhD GERD ICD-530.81 Inactive Kylie Holt [employer] 2015 Health maintenance exam ICD-V70.0 Inactive Adolfo Yates MD Anemia ICD-285.9 Inactive Kylie Holt [employer] 07/24 Hypomagnesemia ICD-275.2 Inactive Kylie Holt [employer] Weakness ICD-780.79 Inactive Hope Benavidez MD P [...] cyst, scalp ICD-706.2 Inactive Tracy hi Yokum [employer] Cervical lymphadenopathy, anterior, left ICD-785.6 Inactive Kylie Yokum [employer] Need for prophylactic vaccination and inoculation against in fluenza ICD-V04.81 Inactive Adam Yates MD Preventive health care ICD-V70.0 Inactive Ka thi Yokum [employer] Thyroid nodule, left ICD-241.0 Inactive Selena Yates MD Screening mammogram ICD-V76.12 Inactive Kylie Yokum [employer] Mandy ICD-706.2 Inactive Kylie Yokum [employer] 07/20 Colon cancer, ascending ICD-153.6 Inactive K athi Yokum [employer] Foot pain, left ICD-729.5 Inactive Kylie Yokum [employer] Splinter ICD-919.6 Inactive Kylie Yokum [employer] 2017 Rash ICD-782.1 Inactive Kylie Yokum [employer] 07/25 Cyst ICD-706.2 Inactive Kylie Yokum [employer] 08/11 Unspecified fall, initial encounter ICD-E888.9 Inactive Kylie Yokum [employer] Eye pain, left ICD-379.91 Inactive Kylie Yokum [employer] Pharyngitis, acute ICD-074.0 Inactive Kavin Yates MD [...] arm as needed for pain DICLOFENAC SODIUM 77921057992 Active Kylie Holt APR N Active IMODIUM A-D 2 MG ORAL TABLET 1 tablet twice a day LOPERAMIDE HCL 64063068109 Active Kylie Holt APRN Active COQ10 100 MG ORAL CAPSULE 1 daily COENZYME Q10 717959 10960 Active Fay Alberts ON LICENSE OF [facility] Active VITAMIN D3 2000 UNIT ORAL CAPSULE Melaleuca-One daily CHOLECALCIFEROL 23911199483 Active Kylie Holt APRN Active PROBIOTIC DAILY ORAL CAPSULE Take one daily PROBIO TIC PRODUCT 25111956807 Active Kylie Holt APRN Active IRON 325 (65 Fe) MG ORAL TABLET 1 every other day FERROUS SULFATE 61074930908 No Longer Active Kylie Holt APRN Active FLORANEX ORAL PACKET 1 pack three times daily, for bowel health LACTOBACILLUS 28346390581 No Longer Active Kylie Holt APRN Active LOMOTIL 2.5-0.025 MG ORAL TABLET 1 tab by mouth prn 23/10/23 DIPHENOXYLATE-ATROPINE 24605974206 No Longer Active Kylie Lundum AMY Active MAGNESIUM GLUCONATE 250 MG ORAL TABLET 1 tab tid 23/10/23 MAGNESIUM GLUCONATE 62755331764 No Longer Active Kylie Holt APRN Active CYANOCOBALAMIN 1000 MCG/ML INJECTION SOLUTION 1 injection ev ruben 2 weeks CYANOCOBALAMIN 06462957746 No Longer Active Kylie Lund um [employer] Active ATENOLOL 25 MG ORAL TABLET 1/2 pill by mouth daily, fo r headaches, blood pressure ATENOLOL 09866719284 Active Kylie Holt [employer] Active PROPRANOLOL HCL 80 MG ORAL TABLET 1 tab tue. and thur. PROPRANOLOL HCL 32121911160 No Longer Active Hope Benavidez MD PhD A ctive VITAMIN D3 4000 IU 1 tab 3 times daily VITAMIN D3 4000 IU No Longer Active Hope Benavidez MD PhD Active BACTRIM DS 800-160 MG ORAL TABLET 1 pill by mouth twice claudio y, for UTI SULFAMETHOXAZOLE-TRIMETHOPRIM 90957018524 No Longer Active Hope Benavidez MD PhD Active PROLIA 60 MG/ML SUBCUTANEOUS SOLUTION 1 shot every 6 months for osteoprosis DENOSUMAB 30825574268 Active Hope Benavidez MD PhD Active CALCIUM + D + K 750-500-40 MG-UNT-MCG ORAL TABLET 1 tab by m [facility] twice daily CALCIUM-VITAMIN D-VITAMIN K 86001298453 Active Hope valdez MD PhD Active DAILY VALUE MULTIVITAMIN ORAL TABLET 1 tab by mouth twice daily 201 05/16/14 MULTIPLE VITAMIN 60511534119 Active Hope Benavidez MD PhD Acti ve FISH OIL 306 MG CAPS 1 tab by mouth three times daily OMEGA-3 FATTY ACIDS 91143423337 Active Hope Benavidez MD PhD Active LUTEIN 10 MG ORAL TABLET 1 tab daily LUTEIN 88669393 408 Active Hope Benavidez MD PhD Active TRIAMTERENE-HCTZ 37.5-25 MG ORAL TABLET 1 tab by mouth daily 10/22 TRIAMTERENE-HCTZ 63556411698 Active Kylieshubham Lundoliver [employer] Active CYCLOBENZAPRINE HCL 10 MG ORAL TABLET 1 tablet by mout h three times daily as needed for headaches CYCLOBENZAPRINE HCL 91026616732 No Longer Active Adam Yates MD Active OMEPRAZOLE 20 MG ORAL CAPSULE DELAYED RELEASE 1 tablet by mo [facility] daily for GERD OMEPRAZOLE 88078840276 No Longer Active Adam Yates MD Active ZOFRAN 8 MG ORAL TABLET 1 tab by mouth every 12 hours prn 4 ONDANSETRON HCL 43138900903 No Longer Active Adam Yates MD Active PHENADOZ 25 MG RECTAL SUPPOSITORY 1 every 4 hrs. PRN 2 PROMETHAZINE HCL 95965320510 No Longer Active Adam Yates MD A ctive POTASSIUM CHLORIDE 20 MEQ ORAL PACKET by mouth twice a day prn 2 POTASSIUM CHLORIDE 31109789842 No Longer Active Adam Carpenter MD Active PROMETHAZINE HCL 25 MG ORAL TABLET 1 Q. 4 hr. PRN PROMETHAZINE HCL 45665717071 No Longer Active Adam Yates MD Active INNOPRAN XL 120 MG ORAL CAPSULE EXTENDED RELEASE 24 HO UR Take one by mouth daily PROPRANOLOL HCL SR BEADS 59997216717 No Longer Active Adam Yates MD Active FLAGYL 500 MG ORAL TABLET 1 pill by mouth three times daily, for diarrhea METRONIDAZOLE 94567544465 No Longer Active Hope landers MD PhD Active DYAZIDE 37.5-25 MG ORAL CAPSULE 1 qd TRIA MTERENE-HCTZ 27586710252 No Longer Active Hope Benavidez MD PhD Active PROZAC 20 MG ORAL CAPSULE 1 q d FLUOXETINE HCL 34510298134 No Longer Active Hope Benavidez MD PhD Active SIMVASTATIN 40 MG ORAL TABLET 1 qd SIMVAS TATIN 11757166032 No Longer Active Adam Yates MD Active MELOXICAM 15 MG ORAL TABLET 1 qd MELOXICAM 04241957938 No Longer Active Adam Yates MD Active EXCEDRIN EXTRA STRENGTH 250-250-65 MG ORAL TABLET 1-2 q6h MO N headache [id number] 94613449048 Active Hope Benavidez MD PhD Active FLAGYL 500 MG ORAL TABLET 1 qid METRONIDAZOL E 96759971114 No Longer Active Adam Yates MD Active LEVAQUIN 750 MG ORAL TABLET 1 qd LEVOFLOXAC IN 28524480162 No Longer Active Adam Yates MD Active ADULT ASPIRIN LOW STRENGTH 81 MG ORAL TABLET DISINTEGRATING 1 qd ASPIRIN 10556416605 Active Hope Benavidez MD PhD Active VITAMIN D3 4000 IU 1 tab 3 times daily VITAMIN D3 4000 IU Inactive BACTRIM DS 800-160 MG ORAL TABLET 1 pill by mouth twice claudio y, for UTI BACTRIM DS 800-160 MG ORAL TABLET 639588 SULFAMETHOXAZOLE-TRIMETHOPRIM Inactive CYANOCOBALAMIN 1000 MCG/ML INJECTION SOLUTION 1 injection ev ruben 2 weeks CYANOCOBALAMIN 1000 MCG/ML INJECTION SOLUTION 30 9594 CYANOCOBALAMIN Inactive CYCLOBENZAPRINE HCL 10 MG ORAL TABLET 1 tablet by mout h three times daily as needed for headaches CYCLOBENZAPRINE HCL 10 MG ORAL TABLET 489346 CYCLOBENZAPRINE HCL Inactive FLAGYL 500 MG ORAL TABLET 1 qid FLAGYL 500 MG ORAL TABLET 956376 METRONIDAZOLE Inactive FLAGYL 500 MG ORAL TABLET 1 pill by mouth three times daily, for diarrhea FLAGYL 500 MG ORAL TABLET 978813 METRONIDAZOLE I nactive IRON 325 (65 Fe) MG ORAL TABLET 1 every other day 2015 IRON 325 (65 Fe) MG ORAL TABLET 976422 FERROUS SULFATE Inactive LOMOTIL 2.5-0.025 MG ORAL TABLET 1 tab by mouth prn 23/10/23 LOMOTIL 2.5-0.025 MG ORAL TABLET 1335846 DIPHENOXYLATE-ATROPINE Inac tive POTASSIUM CHLORIDE 20 MEQ ORAL PACKET by mouth twice a day prn 2 POTASSIUM CHLORIDE 20 MEQ ORAL PACKET 7593937 POTASSIUM CHLORIDE Inactive PROMETHAZINE HCL 25 MG ORAL TABLET 1 Q. 4 hr. PRN 2013 PROMETHAZINE HCL 25 MG ORAL TABLET 245139 PROMETHAZINE HCL Inactive PROPRANOLOL HCL 80 MG ORAL TABLET 1 tab tue. and thur. PROPRANOLOL HCL 80 MG ORAL TABLET 466695 PROPRANOLOL HCL Inacti ve PROZAC 20 MG ORAL CAPSULE 1 q d PROZAC 20 MG ORAL CAPSULE 841362 FLUOXETINE HCL Inactive ZOFRAN 8 MG ORAL TABLET 1 tab by mouth every 12 hours prn 4 ZOFRAN 8 MG ORAL TABLET 013944 ONDANSETRON HCL Inactive SIMVASTATIN 40 MG ORAL TABLET 1 qd SIMVASTATIN 40 MG ORAL TABLET 278093 SIMVASTATIN Inactive DYAZIDE 37.5-25 MG ORAL CAPSULE 1 qd 5 DYAZIDE 37.5-25 MG ORAL CAPSULE 19820212 TRIAMTERENE-HCTZ Inactive MELOXICAM 15 MG ORAL TABLET 1 qd MELOXICAM 15 MG ORAL TABLET 380767 MELOXICAM Inactive MAGNESIUM GLUCONATE 250 MG ORAL TABLET 1 tab tid 23/10/23 MAGNESIUM GLUCONATE 250 MG ORAL TABLET 077781 MAGNESIUM GLUCONATE Inactive OMEPRAZOLE 20 MG ORAL CAPSULE DELAYED RELEASE 1 tablet by mo [facility] daily for GERD OMEPRAZOLE 20 MG ORAL CAPSULE DELAYED RELEASE 19 8051 OMEPRAZOLE Inactive LEVAQUIN 750 MG ORAL TABLET 1 qd LEVAQUIN 750 MG ORAL TABLET 192285 LEVOFLOXACIN Inactive INNOPRAN XL 120 MG ORAL CAPSULE EXTENDED RELEASE 24 HO UR Take one by mouth daily INNOPRAN XL 120 MG ORAL CAPSULE EXTENDED RELEASE 24 HOUR PROPRANOLOL HCL SR BEADS Inactive PHENADOZ 25 MG RECTAL SUPPOSITORY 1 every 4 hrs. PRN 2 PHENADOZ 25 MG RECTAL SUPPOSITORY 948046 PROMETHAZINE HCL Inactive FLORANEX ORAL PACKET 1 pack three times daily, for bowel health FLORANEX ORAL PACKET 71191583499 LACTOBACILLUS Inactive Advance Directives Directive Description Start Date [...] Description blood pressure, diastolic, repeated by physician 62 [...] ... - Chemistry sodium, serum 141 mmol/L 844-309 1913/01/10 potassium, serum 3.7 mmol/L 3.5-5.2 chloride, serum 101 mmol/L 98-107 carbon dioxide, venous blood 31.0 mmol/L 21.0-32 .0 blood glucose 96 mg/dL 65-95 calcium, serum 9.5 mg/dL 8.5-10.1 urea nitrogen, blood 21 mg/dL 7-18 creatinine, serum 1.40 mg/dL 0.60-1.30 Estimated Glomerular Filtration Rate (calc) 39 (?) mL/min/1.73m2 = OR > 60 mL/min cholesterol, serum 211 mg/dL 500-252 5095/01/10 triglyceride, serum, fasting 77 mg/dL 30-200 HDL [...] ... - Chemistry sodium, serum 142 mmol/L 127-350 5760/04/16 carbon dioxide, venous blood 30.0 mmol/L 21.0-32 [...] - Chelle radha sodium, serum 142 mmol/L 719-880 2067/11/02 potassium, serum 3.4 mmol/L 3.5-5.2 chloride, serum [...] mg/dL Encounters Code Encounter Date Provider Facility CPT-11825 Level 4 Est. Patient 15:35:24 [employer] Adam Yates MD [facility] CPT-89852 Level 3 New Patient 12:08:54 [employer] Adam Yates MD [facility] CPT-56999 [id number] Vst-Est Level IV 19:48:30 [employer] Tracy Holt [facility] CPT-89160 56333-Svi Vst-Est Level III 14:29:19 CDT Fiorella Holt [facility] CPT-42049 Level 2 Est. Patient 14:58:26 CDT Kylie Kevon oliver [facility] CPT-29350 Level 3 Est. Patient 08:15:24 [employer] Kylie Escalonagabbi oliver [facility] CPT-86447 Level 2 Est. Patient 14:27:16 [employer] Kylie Polagabbi oliver [facility] CPT-33819 Level 3 Est. Patient 17:54:48 CDT Kylie Lund oliver [facility] CPT-87199 Level 3 Est. Patient 16:26:30 CDT Kinachrista blackmon [facility] CPT-69775 Level 3 New Patient 16:22:01 [employer] Adam Yates MD [facility] CPT-96763 Level 4 Est. Patient 17:00:48 CDT Kylie boyd [facility] CPT-36357 Level 3 Est. Patient 13:15:54 CDT Kylie boyd [facility] CPT-44556 Level 3 Est. Patient 09:10:11 CDT Kylie boyd [facility] CPT-53124 Level 4 Est. Patient 12:08:30 [employer] Hope cohn MD PhD [facility] CPT-67107 Level 4 Est. Patient 19:08:42 [employer] Hope cohn MD PhD [facility] CPT-45764 Level 4 Est. Patient 20:04:51 CDT Hpoe cohn MD [facility] CPT-93858 Level 3 New Patient 01:46:11 [employer] Hope landers MD PhD [facility] Procedures Code Procedure Name Date Entry Date Standard Desc ription CPT-52765 Postop F/U Visit 15:45:41 CDT CPT-28605 Sono Soft Tissue Head and Neck - XRAY US E ONLY 11:56:06 [employer] CPT-72649 Abx/Therapy Injection 09:40:08 [employer] CPT-J0897 Prolia 60 mg 09:40:08 [employer] CPT-96719 First Vx - Ix admin for Medicare patients 02/08 10:02:45 CDT CPT-62521 Fluzone Quadrivalent Intramuscular Suspe nsion 0.5 ML 10:02:45 CDT CPT-66872 Magnesium - LAB USE ONLY 09:41:00 CDT 12/09 CPT-38340 Renal Panel - LAB USE ONLY 09:41:00 CDT 201 09/17/01 CPT-42982 Venipuncture Draw Fee 09:41:00 CDT CPT-17130 Calcium - LAB USE ONLY 17:25:11 CDT CPT-J0897 Prolia 60 mg 15:10:59 CDT CPT-93661 Abx/Therapy Injection 15:10:59 CDT CPT-G0439 Subsequent Annual Wellness Exam 14:29:19 CDT CPT-75235 Venipuncture Draw Fee 10:59:04 CDT CPT-42717 CMP - LAB USE ONLY 10:59:04 CDT CPT-36018 CBC with Diff - LAB USE ONLY 10:59:03 CDT 2 CPT-J0897 Prolia 60 mg 15:46:54 [employer] CPT-98976 Abx/Therapy Injection 15:46:54 [employer] CPT-11756 Microalbumin - LAB USE ONLY 09:41:32 [employer] 20 23/01/15 CPT-25347 Free T4 - LAB USE ONLY 09:41:32 [employer] CPT-00733 TSH - LAB USE ONLY 09:41:32 [employer] CPT-28877 BMP - LAB USE ONLY 09:41:32 [employer] CPT-87250 Venipuncture Draw Fee 09:41:32 [employer] CPT-64717 First Vx - Ix admin for Medicare patients 11:19:30 CDT CPT-16187 Fluzone High-Dose Intramuscular Suspension 12/07 11:19:30 CDT CPT-J0897 Prolia 60 mg 14:55:42 CDT CPT-37688 Abx/Therapy Injection 14:55:42 CDT CPT-37690 Bone Density - XRAY USE ONLY 10:27:12 CDT 2 CPT-G0439 Subsequent Annual Wellness Exam 17:54:53 CDT CPT-39905 Foot, left, comp min 3V - XRAY USE ONLY 12:22:49 CDT CPT-G0009 Administration of Pneumococcal Vaccine 3 12:18:00 CDT CPT-20706 Pneumovax 23 Injection Injectable 25 MCG /0.5ML 12:18:00 CDT CPT-J0897 Prolia 60 mg 14:14:16 [employer] CPT-08227 Abx/Therapy Injection 14:14:15 [employer] CPT-87503 Lipid - LAB USE ONLY 10:01:52 [employer] 2 CPT-98438 Calcium - LAB USE ONLY 10:01:51 [employer] CPT-83152 Venipuncture Draw Fee 10:01:51 [employer] CPT-LR Lesion Removal 16:22:01 [employer] CPT-66792 TSH - LAB USE ONLY 14:26:02 CDT CPT-44756 CMP - LAB USE ONLY 14:26:01 CDT CPT-85997 CBC with Diff - LAB USE ONLY 14:26:01 CDT 2 CPT-67613 Venipuncture Draw Fee 14:26:01 CDT CPT-86826 First Vx - Ix admin for Medicare patients 13:27:08 CDT CPT-71229 Fluzone High-Dose Intramuscular Suspension 11/26 13:27:08 CDT CPT-G0438 Initial Annual Wellness Exam 14:19:57 CD T CPT-G0009 Administration of Pneumococcal Vaccine 9 11:36:25 CDT CPT-81043 Prevnar 13 Intramuscular Suspension 1 1:36:25 CDT CPT-66768 Prevnar 13 Intramuscular Suspension 1 0:40:58 CDT CPT-J0897 Prolia 60 mg 10:37:16 CDT CPT-97111 Abx/Therapy Injection 10:37:16 CDT CPT-J0897 Prolia 60 mg 16:09:34 [employer] CPT-J0897 Prolia 60 mg 11:10:35 [employer] CPT-90631 Abx/Therapy Injection 11:10:35 [employer] CPT-000 Give Appropriate Flu Vaccine 17:01:15 [employer] 2 CPT-44677 Fluzone High Dose (65+) 15:03:08 [employer] 02/15 CPT-56647 Immunization Single Admin 15:03:08 [employer] 2014 CPT-OV Office Visit 15:58:06 CDT CPT-J0897 Prolia 60 mg 08:45:38 CDT CPT-02998 Abx/Therapy Injection 08:45:38 CDT CPT-J3420 Vitamin B12 1000mcg (Cyanocobalamin) 09:26:20 [employer] CPT-64076 Abx/Therapy Injection 09:26:20 [employer] CPT-J3420 Vitamin B12 1000mcg (Cyanocobalamin) 09:44:40 [employer] CPT-49361 Abx/Therapy Injection 09:44:40 [employer]ATION [employer] CPT-J3420 Vitamin B12 1000mcg (Cyanocobalamin) 09:15:54 [employer] HEL[employer] CPT-48867 Abx/Therapy Injection 09:15:54 [employer]ATION [employer] CPT-J3420 Vitamin B12 1000mcg (Cyanocobalamin) 09:46:44 [employer] CPT-37881 Abx/Therapy Injection 09:46:44 [employer] CPT-J3420 Vitamin B12 1000mcg (Cyanocobalamin) 09:47:34 [employer] CPT-06396 Abx/Therapy Injection 09:47:34 [employer] CPT-J3420 Vitamin B12 1000mcg (Cyanocobalamin) 14:35:50 [employer] CPT-J3420 Vitamin B12 1000mcg (Cyanocobalamin) 09:25:05 [employer] CPT-35684 Abx/Therapy Injection 09:25:05 [employer] CPT-G0008 Administration of Influenza Virus Vaccine 13:36:47 CDT CPT-40620 Fluzone High-Dose Intramuscular Suspension 11/15 13:36:47 CDT CPT-J0897 Prolia 60 mg 08:50:41 CDT CPT-55132 Abx/Therapy Injection 08:50:41 CDT CPT-33791 Bone Density 12:06:12 CDT CPT-39368 Bone Density 08:54:40 CDT CPT-OV Office Visit 15:37:02 CDT CPT-10737 Postop F/U Visit 15:47:49 CDT CPT-67036 Postop F/U Visit 15:21:02 CDT CPT-[facility] Transitional Care Mgmt-High 07:52:27 CDT 20 20/06/01 CPT-48869 Venipuncture Draw Fee 13:51:18 CDT CPT-44922 Venipuncture Draw Fee 10:14:55 [employer] CPT-99465 Venipuncture Draw Fee 13:39:45 [employer] CPT-OV Office Visit 15:11:22 [employer] CPT-14732 Venipuncture Draw Fee 09:20:49 [employer] CPT-75120 Venipuncture Draw Fee 16:52:15 [employer]ATION [employer] CPT-43775 Venipuncture Draw Fee 10:37:24 [employer] CPT-77387 Venipuncture Draw Fee 08:21:21 [employer] CPT-27242 Venipuncture Draw Fee 08:30:20 [employer] CPT-19192 Venipuncture Draw Fee 14:53:21 [employer] CPT-85818 Venipuncture Draw Fee 09:40:56 [employer] CPT-31342 Venipuncture Draw Fee 10:30:47 [employer] CPT-65771 Venipuncture Draw Fee 10:46:17 [employer]ATION [employer] CPT-75728 Venipuncture Draw Fee 11:12:45 [employer]ATION [employer] CPT-26432 Venipuncture Draw Fee 09:53:33 [employer] HEL[employer] CPT-62794 Venipuncture Draw Fee 11:53:51 [employer] CPT-68975 Venipuncture Draw Fee 10:33:50 [employer] CPT-18653 Venipuncture Draw Fee 10:05:01 [employer] CPT-96355 Venipuncture Draw Fee 14:32:52 [employer] CPT-19311 Venipuncture Draw Fee 09:46:13 [employer] CPT-12763 Venipuncture Draw Fee 11:34:27 [employer] CPT-40753 Venipuncture Draw Fee 13:17:16 [employer] CPT-85715 Venipuncture Draw Fee 12:05:39 CDT CPT-48944 Venipuncture Draw Fee 12:49:12 CDT CPT-06248 Venipuncture Draw Fee 12:37:18 CDT CPT-59621 Venipuncture Draw Fee 10:57:11 CDT CPT-26278 Venipuncture Draw Fee 13:47:40 CDT CPT-12349 Venipuncture Draw Fee 10:02:17 CDT CPT-71001 TB Tubersol 17:32:32 CDT CPT-OV Office Visit 16:21:53 CDT CPT-OV Office Visit 15:49:22 CDT CPT-OV Office Visit 17:16:31 CDT CPT-OV Office Visit 10:43:31 CDT
--- OUTSIDE RECORDS SUMMARY | 2019-02-09 11:51 | XMS REPORT | Clinical Summary ---
Author Author Admin, Florecita Munoz Organization [facility] [employer] Address Unknown Phone Unavailable Allergies, Adverse Reactions, [...] status (age-related) (natural) Diarrhea 787.91 Inactive Hope Benaivdez MD PhD Diarrhea Diarrhea, functional 564.5 Resolved [...] Sebaceous cyst, scalp 706.2 Resolved Kylie Yokum STRATEGY MANAGER Sebaceous cyst Cervical lymphadenopathy, anterior, left 785.6 Resolv ed Kylie Yokum STRATEGY MANAGER Enlargement of lymph nodes Need for prophylactic vaccination and inoculation against in fluenza V04.81 Resolved Adam Yates MD Need for prophylactic vaccination and inoculation against influenza Preventive health care V70.0 Resolved Kylie Lundu m STRATEGY MANAGER Routine general medical examination at a health care facility Thyroid nodule, left 241.0 Resolved Selena Yates MD Nontoxic uninodular goiter Screening mammogram V76.12 Resolved Kylie Yokum A PRN Other screening mammogram Mandy 706.2 Resolved Kylie Yokum STRATEGY MANAGER Sebaceous cyst Colon cancer, ascending 153.6 Resolved Kylie Yok um STRATEGY MANAGER Malignant neoplasm of ascending colon Foot pain, left 729.5 Resolved Kylie Yokum STRATEGY MANAGER Pain in limb Splinter 919.6 Resolved Kylie Yokum STRATEGY MANAGER Superficial foreign body (splinter) of other, multiple, and unspecified sites, without major open wound and without mention of infection Rash 782.1 Resolved Kylie Yokum STRATEGY MANAGER Rash and other nonspecific skin eruption Cyst 706.2 Resolved Kylie Yokum STRATEGY MANAGER Sebaceous cyst Body Mass Index 23.0-23.9 Adult Refinement 2017 Kylie Yokum STRATEGY MANAGER Body Mass Index between 19-24, adult [...] MD PhD GERD ICD-530.81 Inactive Kylie Holt STRATEGY MANAGER 2015 Health maintenance exam ICD-V70.0 Inactive Adolfo Yates MD Anemia ICD-285.9 Inactive Kylie Holt STRATEGY MANAGER 07/24 Hypomagnesemia ICD-275.2 Inactive Kylie Holt STRATEGY MANAGER Weakness ICD-780.79 Inactive Hope Benavidez MD [...] cyst, scalp ICD-706.2 Inactive Tracy hi Yokum STRATEGY MANAGER Cervical lymphadenopathy, anterior, left ICD-785.6 Inactive Kylie Yokum STRATEGY MANAGER Need for prophylactic vaccination and inoculation against in fluenza ICD-V04.81 Inactive Adam Yates MD Preventive health care ICD-V70.0 Inactive Ka thi Yokum STRATEGY MANAGER Thyroid nodule, left ICD-241.0 Inactive Selena Yates MD Screening mammogram ICD-V76.12 Inactive Kylie Yokum STRATEGY MANAGER Mandy ICD-706.2 Inactive Kylie Yokum STRATEGY MANAGER 07/20 Colon cancer, ascending ICD-153.6 Inactive K athi Yokum STRATEGY MANAGER Foot pain, left ICD-729.5 Inactive Kylie Yokum STRATEGY MANAGER Splinter ICD-919.6 Inactive Kylie Yokum STRATEGY MANAGER 2017 Rash ICD-782.1 Inactive Kylie Yokum STRATEGY MANAGER 07/25 Cyst ICD-706.2 Inactive Kylie Yokum STRATEGY MANAGER 08/11 Unspecified fall, initial encounter ICD-E888.9 Inactive Kylie Yokum STRATEGY MANAGER Eye pain, left ICD-379.91 Inactive Kylie Yokum STRATEGY MANAGER Pharyngitis, acute ICD-074.0 Inactive Kavin Yates [...] arm as needed for pain DICLOFENAC SODIUM 45783748682 Active Kylie Holt APR N Active IMODIUM A-D 2 MG ORAL TABLET 1 tablet twice a day LOPERAMIDE HCL 48320640198 Active Kylie Holt APRN Active COQ10 100 MG ORAL CAPSULE 1 daily COENZYME Q10 249899 44371 Active Fay Alberts [facility] Active VITAMIN D3 2000 UNIT ORAL CAPSULE Melaleuca-One daily CHOLECALCIFEROL 97743167993 Active Kylie Holt APRN Active PROBIOTIC DAILY ORAL CAPSULE Take one daily PROBIO TIC PRODUCT 45299938874 Active Kylie Holt APRN Active IRON 325 (65 Fe) MG ORAL TABLET 1 every other day FERROUS SULFATE 95878421756 No Longer Active Kylie Holt APRN Active FLORANEX ORAL PACKET 1 pack three times daily, for bowel health LACTOBACILLUS 62608442289 No Longer Active Kylie Holt APRN Active LOMOTIL 2.5-0.025 MG ORAL TABLET 1 tab by mouth prn 23/10/23 DIPHENOXYLATE-ATROPINE 10514538866 No Longer Active Kylie Lundum AMY Active MAGNESIUM GLUCONATE 250 MG ORAL TABLET 1 tab tid 23/10/23 MAGNESIUM GLUCONATE 03186470546 No Longer Active Kylie Holt APRN Active CYANOCOBALAMIN 1000 MCG/ML INJECTION SOLUTION 1 injection ev ruben 2 weeks CYANOCOBALAMIN 37149405152 No Longer Active Kylie Lund um STRATEGY MANAGER Active ATENOLOL 25 MG ORAL TABLET 1/2 pill by mouth daily, fo r headaches, blood pressure ATENOLOL 95320269734 Active Kylie Holt STRATEGY MANAGER Active PROPRANOLOL HCL 80 MG ORAL TABLET 1 tab tue. and thur. PROPRANOLOL HCL 21156769321 No Longer Active Hope Benavidez MD PhD A ctive VITAMIN D3 4000 IU 1 tab 3 times daily VITAMIN D3 4000 IU No Longer Active Hope Benavidez MD PhD Active BACTRIM DS 800-160 MG ORAL TABLET 1 pill by mouth twice claudio y, for UTI SULFAMETHOXAZOLE-TRIMETHOPRIM 73717119968 No Longer Active Hope Benavidez MD PhD Active PROLIA 60 MG/ML SUBCUTANEOUS SOLUTION 1 shot every 6 months for osteoprosis DENOSUMAB 47796817589 Active Hope Benavidez MD PhD Active CALCIUM + D + K 750-500-40 MG-UNT-MCG ORAL TABLET [address] [facility] twice daily CALCIUM-VITAMIN D-VITAMIN K 51639478213 Active Hope valdez MD PhD Active DAILY VALUE MULTIVITAMIN ORAL TABLET 1 tab by mouth twice daily 201 05/16/14 MULTIPLE VITAMIN 39971058445 Active Hope Benavidez MD PhD Acti ve FISH OIL 306 MG CAPS 1 tab by mouth three times daily OMEGA-3 FATTY ACIDS 95240069790 Active Hope Benavidez MD PhD Active LUTEIN 10 MG ORAL TABLET 1 tab daily LUTEIN 86795108 408 Active Hope Benavidez MD PhD Active TRIAMTERENE-HCTZ 37.5-25 MG ORAL TABLET 1 tab by mouth daily 10/22 TRIAMTERENE-HCTZ 65158192359 Active Kylieshubham Lundoliver STRATEGY MANAGER Active CYCLOBENZAPRINE HCL 10 MG ORAL TABLET 1 tablet by mout h three times daily as needed for headaches CYCLOBENZAPRINE HCL 23276452138 No Longer Active Adam Yates MD Active OMEPRAZOLE 20 MG ORAL CAPSULE DELAYED RELEASE 1 tablet by mo [facility] daily for GERD OMEPRAZOLE 19483175910 No Longer Active Adam Yates MD Active ZOFRAN 8 MG ORAL TABLET 1 tab by mouth every 12 hours prn 4 ONDANSETRON HCL 31604083898 No Longer Active Adam Yates MD Active PHENADOZ 25 MG RECTAL SUPPOSITORY 1 every 4 hrs. PRN 2 PROMETHAZINE HCL 45465910544 No Longer Active Adam Yates MD A ctive POTASSIUM CHLORIDE 20 MEQ ORAL PACKET by mouth twice a day prn 2 POTASSIUM CHLORIDE 35381539503 No Longer Active Adam Carpenter MD Active PROMETHAZINE HCL 25 MG ORAL TABLET 1 Q. 4 hr. PRN PROMETHAZINE HCL 48504039378 No Longer Active Adam Yates MD Active INNOPRAN XL 120 MG ORAL CAPSULE EXTENDED RELEASE 24 HO UR Take one by mouth daily PROPRANOLOL HCL SR BEADS 27330154887 No Longer Active Adam Yates MD Active FLAGYL 500 MG ORAL TABLET 1 pill by mouth three times daily, for diarrhea METRONIDAZOLE 15835027567 No Longer Active Hope landers MD PhD Active DYAZIDE 37.5-25 MG ORAL CAPSULE 1 qd TRIA MTERENE-HCTZ 07055920323 No Longer Active Hope Benavidez MD PhD Active PROZAC 20 MG ORAL CAPSULE 1 q d FLUOXETINE HCL 42306704862 No Longer Active Hope Benavidez MD PhD Active SIMVASTATIN 40 MG ORAL TABLET 1 qd SIMVAS TATIN 75600009168 No Longer Active Adam Yates MD Active MELOXICAM 15 MG ORAL TABLET 1 qd MELOXICAM 77512345906 No Longer Active Adam Yates MD Active EXCEDRIN EXTRA STRENGTH 250-250-65 MG ORAL TABLET 1-2 q6h IN N headache [id number] 64062427884 Active Hope Benavidez MD PhD Active FLAGYL 500 MG ORAL TABLET 1 qid METRONIDAZOL E 36381275663 No Longer Active Adam Yates MD Active LEVAQUIN 750 MG ORAL TABLET 1 qd LEVOFLOXAC IN 95703346704 No Longer Active Adam Yates MD Active ADULT ASPIRIN LOW STRENGTH 81 MG ORAL TABLET DISINTEGRATING 1 qd ASPIRIN 78608510118 Active Hope Benavidez MD PhD Active LEVAQUIN 750 MG ORAL TABLET 1 qd LEVAQUIN 750 MG ORAL TABLET 228278 LEVOFLOXACIN Inactive FLAGYL 500 MG ORAL TABLET 1 qid FLAGYL 500 MG ORAL TABLET 531385 METRONIDAZOLE Inactive MELOXICAM 15 MG ORAL TABLET 1 qd MELOXICAM 15 MG ORAL TABLET 318451 MELOXICAM Inactive SIMVASTATIN 40 MG ORAL TABLET 1 qd SIMVASTATIN 40 MG ORAL TABLET 814938 SIMVASTATIN Inactive PROZAC 20 MG ORAL CAPSULE 1 q d PROZAC 20 MG ORAL CAPSULE 216368 FLUOXETINE HCL Inactive DYAZIDE 37.5-25 MG ORAL CAPSULE 1 qd 5 DYAZIDE 37.5-25 MG ORAL CAPSULE 799447 TRIAMTERENE-HCTZ Inactive INNOPRAN XL 120 MG ORAL CAPSULE EXTENDED RELEASE 24 HO UR Take one by mouth daily INNOPRAN XL 120 MG ORAL CAPSULE EXTENDED RELEASE 24 HOUR PROPRANOLOL HCL SR BEADS Inactive PROMETHAZINE HCL 25 MG ORAL TABLET 1 Q. 4 hr. PRN 2013 PROMETHAZINE HCL 25 MG ORAL TABLET 051520 PROMETHAZINE HCL Inactive POTASSIUM CHLORIDE 20 MEQ ORAL PACKET by mouth twice a day prn 2 POTASSIUM CHLORIDE 20 MEQ ORAL PACKET 5075639 POTASSIUM CHLORIDE Inactive PHENADOZ 25 MG RECTAL SUPPOSITORY 1 every 4 hrs. PRN PHENADOZ 25 MG RECTAL SUPPOSITORY 874936 PROMETHAZINE HCL Inactive ZOFRAN 8 MG ORAL TABLET 1 tab by mouth every 12 hours prn 4 ZOFRAN 8 MG ORAL TABLET 361803 ONDANSETRON HCL Inactive OMEPRAZOLE 20 MG ORAL CAPSULE DELAYED RELEASE 1 tablet by mo uth daily for GERD OMEPRAZOLE 20 MG ORAL CAPSULE DELAYED RELEASE 19 8051 OMEPRAZOLE Inactive CYCLOBENZAPRINE HCL 10 MG ORAL TABLET 1 tablet by mout h three times daily as needed for headaches CYCLOBENZAPRINE HCL 10 MG ORAL TABLET 102126 CYCLOBENZAPRINE HCL Inactive VITAMIN D3 4000 IU 1 tab 3 times daily VITAMIN D3 4000 IU Inactive PROPRANOLOL HCL 80 MG ORAL TABLET 1 tab tue. and thur. PROPRANOLOL HCL 80 MG ORAL TABLET 527036 PROPRANOLOL HCL Inacti ve CYANOCOBALAMIN 1000 MCG/ML INJECTION SOLUTION 1 injection ev ruben 2 weeks CYANOCOBALAMIN 1000 MCG/ML INJECTION SOLUTION 30 9594 CYANOCOBALAMIN Inactive MAGNESIUM GLUCONATE 250 MG ORAL TABLET 1 tab tid 23/10/23 MAGNESIUM GLUCONATE 250 MG ORAL TABLET 618601 MAGNESIUM GLUCONATE Inactive LOMOTIL 2.5-0.025 MG ORAL TABLET 1 tab by mouth prn 23/10/23 LOMOTIL 2.5-0.025 MG ORAL TABLET 3729851 DIPHENOXYLATE-ATROPINE Inac tive FLORANEX ORAL PACKET 1 pack three times daily, for bowel health FLORANEX ORAL PACKET 79477029860 LACTOBACILLUS Inactive IRON 325 (65 Fe) MG ORAL TABLET 1 every other day 2015 IRON 325 (65 Fe) MG ORAL TABLET 076930 FERROUS SULFATE Inactive FLAGYL 500 MG ORAL TABLET 1 pill by mouth three times daily, for diarrhea FLAGYL 500 MG ORAL TABLET 146659 METRONIDAZOLE I nactive BACTRIM DS 800-160 MG ORAL TABLET 1 pill by mouth twice claudio y, for UTI BACTRIM DS 800-160 MG ORAL TABLET 830416 SULFAMETHOXAZOLE-TRIMETHOPRIM Inactive Advance Directives Directive Description Start [...] ... - Chemistry sodium, serum 141 mmol/L 609-204 4101/01/10 potassium, serum 3.7 mmol/L 3.5-5.2 chloride, serum 101 mmol/L 98-107 carbon dioxide, venous blood 31.0 mmol/L 21.0-32 .0 blood glucose 96 mg/dL 65-95 calcium, serum 9.5 mg/dL 8.5-10.1 urea nitrogen, blood 21 mg/dL 7-18 creatinine, serum 1.40 mg/dL 0.60-1.30 Estimated Glomerular Filtration Rate (calc) 39 (?) mL/min/1.73m2 = OR > 60 mL/min cholesterol, serum 211 mg/dL 781-220 4827/01/10 triglyceride, serum, fasting 77 mg/dL 30-200 HDL [...] ... - Chemistry sodium, serum 142 mmol/L 235-880 4667/04/16 carbon dioxide, venous blood 30.0 mmol/L 21.0-32 [...] - Chelle radha sodium, serum 142 mmol/L 254-290 4453/11/02 potassium, serum 3.4 mmol/L 3.5-5.2 chloride, serum [...] mg/dL Encounters Code Encounter Date Provider Facility CPT-03987 Level 4 Est. Patient 15:35:24 HR ASSOCIATE Adam Yates MD [facility] CPT-96090 Level 3 New Patient 12:08:54 HR ASSOCIATE Adam Yates MD [facility] CPT-82603 [id number] Vst-Est Level IV 19:48:30 HR ASSOCIATE Tracy Holt [facility] CPT-33268 [id number]-Ein Vst-Est Level III 14:29:19 CDT Fiorella Holt [facility] CPT-64035 Level 2 Est. Patient 14:58:26 CDT Kylie boyd [facility] CPT-60224 Level 3 Est. Patient 08:15:24 HR ASSOCIATE Kylie boyd [facility] CPT-11786 Level 2 Est. Patient 14:27:16 HR ASSOCIATE Kylie boyd [facility] CPT-24626 Level 3 Est. Patient 17:54:48 CDT Kylie boyd [facility] CPT-26169 Level 3 Est. Patient 16:26:30 CDT Kina blackmon [facility] CPT-41244 Level 3 New Patient 16:22:01 HR ASSOCIATE Adam Yates MD [facility] CPT-79861 Level 4 Est. Patient 17:00:48 CDT [facility] CPT-15744 Level 3 Est. Patient 13:15:54 CDT Kylie boyd [facility] CPT-46701 Level 3 Est. Patient 09:10:11 CDT Kylie boyd [facility] CPT-05879 Level 4 Est. Patient 12:08:30 HR ASSOCIATE Hope cohn MD [facility] CPT-94784 Level 4 Est. Patient 19:08:42 HR ASSOCIATE Hope cohn MD PhD [facility] CPT-44591 Level 4 Est. Patient 20:04:51 CDT Hope cohn MD PhD [facility] CPT-24194 Level 3 New Patient 01:46:11 HR ASSOCIATE Hope landers MD PhD [facility] Procedures Code Procedure Name Date Entry Date Standard Desc ription CPT-36247 Postop F/U Visit 15:45:41 CDT CPT-80637 Sono Soft Tissue Head and Neck - XRAY US E ONLY 11:56:06 HR ASSOCIATE CPT-20233 Abx/Therapy Injection 09:40:08 HR ASSOCIATE CPT-J0897 Prolia 60 mg 09:40:08 HR ASSOCIATE CPT-39536 First Vx - Ix admin for Medicare patients 02/08 10:02:45 CDT CPT-34051 Fluzone Quadrivalent Intramuscular Suspe nsion 0.5 ML 10:02:45 CDT CPT-85754 Magnesium - LAB USE ONLY 09:41:00 CDT 12/09 CPT-50281 Renal Panel - LAB USE ONLY 09:41:00 CDT 201 09/17/01 CPT-28663 Venipuncture Draw Fee 09:41:00 CDT CPT-90769 Calcium - LAB USE ONLY 17:25:11 CDT CPT-J0897 Prolia 60 mg 15:10:59 CDT CPT-73480 Abx/Therapy Injection 15:10:59 CDT CPT-G0439 Subsequent Annual Wellness Exam 14:29:19 CDT CPT-07017 Venipuncture Draw Fee 10:59:04 CDT CPT-53140 CMP - LAB USE ONLY 10:59:04 CDT CPT-75831 CBC with Diff - LAB USE ONLY 10:59:03 CDT 2 CPT-J0897 Prolia 60 mg 15:46:54 HR ASSOCIATE CPT-33636 Abx/Therapy Injection 15:46:54 HR ASSOCIATE CPT-11418 Microalbumin - LAB USE ONLY 09:41:32 HR ASSOCIATE 20 23/01/15 CPT-53127 Free T4 - LAB USE ONLY 09:41:32 HR ASSOCIATE CPT-21863 TSH - LAB USE ONLY 09:41:32 HR ASSOCIATE CPT-11504 BMP - LAB USE ONLY 09:41:32 HR ASSOCIATE CPT-11124 Venipuncture Draw Fee 09:41:32 HR ASSOCIATE CPT-02340 First Vx - Ix admin for Medicare patients 11:19:30 CDT CPT-78469 Fluzone High-Dose Intramuscular Suspension 12/07 11:19:30 CDT CPT-J0897 Prolia 60 mg 14:55:42 CDT CPT-75650 Abx/Therapy Injection 14:55:42 CDT CPT-51065 Bone Density - XRAY USE ONLY 10:27:12 CDT 2 CPT-G0439 MC Subsequent Annual Wellness Exam 17:54:53 CDT CPT-47379 Foot, left, comp min 3V - XRAY USE ONLY 12:22:49 CDT CPT-G0009 Administration of Pneumococcal Vaccine 3 12:18:00 CDT CPT-20494 Pneumovax 23 Injection Injectable 25 MCG /0.5ML 12:18:00 CDT CPT-J0897 Prolia 60 mg 14:14:16 HR ASSOCIATE CPT-05843 Abx/Therapy Injection 14:14:15 HR ASSOCIATE CPT-89309 Lipid - LAB USE ONLY 10:01:52 HR ASSOCIATE 2 CPT-22770 Calcium - LAB USE ONLY 10:01:51 HR ASSOCIATE CPT-29903 Venipuncture Draw Fee 10:01:51 HR ASSOCIATE CPT-LR Lesion Removal 16:22:01 HR ASSOCIATE CPT-41237 TSH - LAB USE ONLY 14:26:02 CDT CPT-91295 CMP - LAB USE ONLY 14:26:01 CDT CPT-15075 CBC with Diff - LAB USE ONLY 14:26:01 CDT 2 CPT-73777 Venipuncture Draw Fee 14:26:01 CDT CPT-08765 First Vx - Ix admin for Medicare patients 13:27:08 CDT CPT-67346 Fluzone High-Dose Intramuscular Suspension 11/26 13:27:08 CDT CPT-G0438 Initial Annual Wellness Exam 14:19:57 CD T CPT-G0009 Administration of Pneumococcal Vaccine 9 11:36:25 CDT CPT-94745 Prevnar 13 Intramuscular Suspension 1 1:36:25 CDT CPT-83109 Prevnar 13 Intramuscular Suspension 1 0:40:58 CDT CPT-J0897 Prolia 60 mg 10:37:16 CDT CPT-68916 Abx/Therapy Injection 10:37:16 CDT CPT-J0897 Prolia 60 mg 16:09:34 HR ASSOCIATE CPT-J0897 Prolia 60 mg 11:10:35 HR ASSOCIATE CPT-91249 Abx/Therapy Injection 11:10:35 HR ASSOCIATE CPT-000 Give Appropriate Flu Vaccine 17:01:15 HR ASSOCIATE 2 CPT-96612 Fluzone High Dose (65+) 15:03:08 HR ASSOCIATE 02/15 CPT-41318 Immunization Single Admin 15:03:08 HR ASSOCIATE 2014 CPT-OV Office Visit 15:58:06 CDT CPT-J0897 Prolia 60 mg 08:45:38 CDT CPT-02200 Abx/Therapy Injection 08:45:38 CDT CPT-J3420 Vitamin B12 1000mcg (Cyanocobalamin) 09:26:20 HR ASSOCIATE CPT-72982 Abx/Therapy Injection 09:26:20 HR ASSOCIATE CPT-J3420 Vitamin B12 1000mcg (Cyanocobalamin) 09:44:40 HR ASSOCIATE CPT-38528 Abx/Therapy Injection 09:44:40 HR ASSOCIATE CPT-J3420 Vitamin B12 1000mcg (Cyanocobalamin) 09:15:54 HR ASSOCIATE CPT-71489 Abx/Therapy Injection 09:15:54 HR ASSOCIATE CPT-J3420 Vitamin B12 1000mcg (Cyanocobalamin) 09:46:44 HR ASSOCIATE CPT-76065 Abx/Therapy Injection 09:46:44 HR ASSOCIATE CPT-J3420 Vitamin B12 1000mcg (Cyanocobalamin) 09:47:34 HR ASSOCIATE CPT-12421 Abx/Therapy Injection 09:47:34 HR ASSOCIATE CPT-J3420 Vitamin B12 1000mcg (Cyanocobalamin) 14:35:50 HR ASSOCIATE CPT-J3420 Vitamin B12 1000mcg (Cyanocobalamin) 09:25:05 HR ASSOCIATE CPT-38364 Abx/Therapy Injection 09:25:05 HR ASSOCIATE CPT-G0008 Administration of Influenza Virus Vaccine 13:36:47 CDT CPT-85829 Fluzone High-Dose Intramuscular Suspension 11/15 13:36:47 CDT CPT-J0897 Prolia 60 mg 08:50:41 CDT CPT-17183 Abx/Therapy Injection 08:50:41 CDT CPT-88864 Bone Density 12:06:12 CDT CPT-03033 Bone Density 08:54:40 CDT CPT-OV Office Visit 15:37:02 CDT CPT-48454 Postop F/U Visit 15:47:49 CDT CPT-54441 Postop F/U Visit 15:21:02 CDT CPT-TCMH Transitional Care Mgmt-High 07:52:27 CDT 20 20/06/01 CPT-97743 Venipuncture Draw Fee 13:51:18 CDT CPT-06198 Venipuncture Draw Fee 10:14:55 HR ASSOCIATE CPT-76266 Venipuncture Draw Fee 13:39:45 HR ASSOCIATE CPT-OV Office Visit 15:11:22 HR ASSOCIATE CPT-04354 Venipuncture Draw Fee 09:20:49 HR ASSOCIATE CPT-32252 Venipuncture Draw Fee 16:52:15 HR ASSOCIATE CPT-72557 Venipuncture Draw Fee 10:37:24 HR ASSOCIATE CPT-49871 Venipuncture Draw Fee 08:21:21 HR ASSOCIATE CPT-88556 Venipuncture Draw Fee 08:30:20 HR ASSOCIATE CPT-37855 Venipuncture Draw Fee 14:53:21 HR ASSOCIATE CPT-47519 Venipuncture Draw Fee 09:40:56 HR ASSOCIATE CPT-76493 Venipuncture Draw Fee 10:30:47 HR ASSOCIATE CPT-97514 Venipuncture Draw Fee 10:46:17 HR ASSOCIATE CPT-25314 Venipuncture Draw Fee 11:12:45 HR ASSOCIATE CPT-19956 Venipuncture Draw Fee 09:53:33 HR ASSOCIATE CPT-30628 Venipuncture Draw Fee 11:53:51 HR ASSOCIATE CPT-37103 Venipuncture Draw Fee 10:33:50 HR ASSOCIATE CPT-66286 Venipuncture Draw Fee 10:05:01 HR ASSOCIATE CPT-24466 Venipuncture Draw Fee 14:32:52 HR ASSOCIATE CPT-57249 Venipuncture Draw Fee 09:46:13 HR ASSOCIATE CPT-07183 Venipuncture Draw Fee 11:34:27 HR ASSOCIATE CPT-58690 Venipuncture Draw Fee 13:17:16 HR ASSOCIATE CPT-33970 Venipuncture Draw Fee 12:05:39 CDT CPT-21116 Venipuncture Draw Fee 12:49:12 CDT CPT-62857 Venipuncture Draw Fee 12:37:18 CDT CPT-54456 Venipuncture Draw Fee 10:57:11 CDT CPT-41496 Venipuncture Draw Fee 13:47:40 CDT CPT-17746 Venipuncture Draw Fee 10:02:17 CDT CPT-94314 TB Tubersol 17:32:32 CDT CPT-OV Office Visit 16:21:53 CDT CPT-OV Office Visit 15:49:22 CDT CPT-OV Office Visit 17:16:31 CDT CPT-OV Office Visit 10:43:31 CDT
--- OUTSIDE RECORDS SUMMARY | 2019-02-09 11:52 | XMS REPORT | Clinical Summary ---
Author Author Renaldo, Florecita Munoz Organization [facility] Address Unknown Phone Unavailable Allergies, Adverse Reactions, [...] PhD Hyperpotassemia GERD 530.81 Resolved Kylie Yokum SAFETY TECHNICIAN Esophageal reflux Health maintenance exam V70.0 Resolved Adolfo Yates MD Routine general medical examination at a health care facility Anemia 285.9 Resolved Kylie Holt SAFETY TECHNICIAN Anemia, unspecified Personal history of malignant neoplasm of large intestine V10.05 Active Adam Yates MD Personal history of malignant neoplasm of large intestine Hypomagnesemia 275.2 Resolved Kylie Holt SAFETY TECHNICIAN Disorders of magnesium metabolism Weakness 780.79 [...] Sebaceous cyst, scalp 706.2 Resolved Kylie Yokum SAFETY TECHNICIAN Sebaceous cyst Cervical lymphadenopathy, anterior, left 785.6 Resolv ed Kylie Yokum SAFETY TECHNICIAN Enlargement of lymph nodes Need for prophylactic vaccination and inoculation against in fluenza V04.81 Resolved Adam Yates MD Need for prophylactic vaccination and inoculation against influenza Preventive health care V70.0 Resolved Kylie Lundu m SAFETY TECHNICIAN Routine general medical examination at a health care facility Thyroid nodule, left 241.0 Resolved Selena Yates MD Nontoxic uninodular goiter Screening mammogram V76.12 Resolved Kylie Yokum A PRN Other screening mammogram Mandy 706.2 Resolved Kylie Yokum SAFETY TECHNICIAN Sebaceous cyst Colon cancer, ascending 153.6 Resolved Kylie Yok um SAFETY TECHNICIAN Malignant neoplasm of ascending colon Foot pain, left 729.5 Resolved Kylie Yokum SAFETY TECHNICIAN Pain in limb Splinter 919.6 Resolved Kylie Yokum SAFETY TECHNICIAN Superficial foreign body (splinter) of other, multiple, and unspecified sites, without major open wound and without mention of infection Rash 782.1 Resolved Kylie Yokum SAFETY TECHNICIAN Rash and other nonspecific skin eruption Cyst 706.2 Resolved Kylie Yokum SAFETY TECHNICIAN Sebaceous cyst Body Mass Index 23.0-23.9 Adult Refinement 2017 Kylie Yokum SAFETY TECHNICIAN Body Mass Index between 19-24, adult [...] MD Malignant neoplasm of thy roid gland ADENOCARCINOMA, COLON, 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 Dick Yates MD ABDOMINAL PAIN, RIGHT LOWER QUADRANT ICD-789.03 Inactive Kina Joshua SAFETY TECHNICIAN UNSPECIFIED VENOUS INSUFFICIENCY ICD-459.81 Elda ctive Adam Yates MD ABDOMINAL PAIN, GENERALIZED ICD-789.07 Inactive Hope Benavidez MD PhD ADENOCARCINOMA, 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 Inac abdelrahman Benavidez MD PhD Hyperkalemia ICD-276.7 Inactive Hope Benavidez MD PhD FEVER UNSPECIFIED ICD-780.60 Inactive Hope cohn MD PhD Health maintenance exam ICD-V70.0 Inactive Adolfo Yates MD Anemia ICD-285.9 Inactive Kylie Yokum SAFETY TECHNICIAN 07/24 GERD ICD-530.81 Inactive Kylie Yokum SAFETY TECHNICIAN 2015 Hypomagnesemia ICD-275.2 Inactive Kylie Yokum SAFETY TECHNICIAN Weakness ICD-780.79 Inactive Hope Benavidez MD [...] cyst, scalp ICD-706.2 Inactive Tracy hi Yokum SAFETY TECHNICIAN Cervical lymphadenopathy, anterior, left ICD-785.6 Inactive Kylie Yokum SAFETY TECHNICIAN Need for prophylactic vaccination and inoculation against in fluenza ICD-V04.81 Inactive Adam Yates MD Diarrhea, functional ICD-564.5 Inactive Selena Yates MD Thyroid nodule, left ICD-241.0 Inactive Selena Yates MD Mandy ICD-706.2 Inactive Kylie Yokum SAFETY TECHNICIAN 07/20 Colon cancer, ascending ICD-153.6 Inactive K athi Yokum SAFETY TECHNICIAN Foot pain, left ICD-729.5 Inactive Kylie Yokum SAFETY TECHNICIAN Splinter ICD-919.6 Inactive Kylie Yokum SAFETY TECHNICIAN 2017 Rash ICD-782.1 Inactive Kylie Yokum SAFETY TECHNICIAN 07/25 Cyst ICD-706.2 Inactive Kylie Yokum SAFETY TECHNICIAN 08/11 Preventive health care ICD-V70.0 Inactive Ka thi Yokum SAFETY TECHNICIAN Unspecified fall, initial encounter ICD-E888.9 Inactive Kylie Yokum SAFETY TECHNICIAN Eye pain, left ICD-379.91 Inactive Kylie Yokum SAFETY TECHNICIAN Pharyngitis, acute ICD-074.0 Inactive Kavin Yates MD Screening mammogram ICD-V76.12 Inactive Kylie Yokum SAFETY TECHNICIAN Hypomagnesemia ICD-275.2 Inactive Adam Franklin MD Hypokalemia ICD-276.8 Inactive Adam enamorado MD Enlarged thyroid ICD-240.9 Inactive Adam Yates MD Underweight Inactive LETY Nation 05/17 Follicular adenoma, thyroid ICD-226 Inactive Adam Yaets MD Medication List Medication Instructions Start Date Stop Date Generic Name NDC Status Provider Patient Instruction VOLTAREN 1 % TRANSDERMAL GEL apply 2 grams q 6-8 hour to left arm as needed for pain DICLOFENAC SODIUM 45373500127 Active Kylie Holt APR N Active IMODIUM A-D 2 MG ORAL TABLET 1 tablet twice a day LOPERAMIDE HCL 53542489307 Active Kylie Holt APRN Active COQ10 100 MG ORAL CAPSULE 1 daily COENZYME Q10 030317 26279 Active Fay Alberts [facility] Active VITAMIN D3 2000 UNIT ORAL CAPSULE Melaleuca-One daily CHOLECALCIFEROL 28698553240 Active Kylie Holt APRN Active PROBIOTIC DAILY ORAL CAPSULE Take one daily PROBIO TIC PRODUCT 47677239786 Active Kylie Holt APRN Active IRON 325 (65 Fe) MG ORAL TABLET 1 every other day FERROUS SULFATE 77414163684 No Longer Active Kylie Holt APRN Active FLORANEX ORAL PACKET 1 pack three times daily, for bowel health LACTOBACILLUS 60852343808 No Longer Active Kylie Holt APRN Active LOMOTIL 2.5-0.025 MG ORAL TABLET 1 tab by mouth prn 23/10/23 DIPHENOXYLATE-ATROPINE 41563052472 No Longer Active Kylie Lundum SAFETY TECHNICIAN Active MAGNESIUM GLUCONATE 250 MG ORAL TABLET 1 tab tid 23/10/23 MAGNESIUM GLUCONATE 39383889635 No Longer Active Kylie Lundum AMY Active CYANOCOBALAMIN 1000 MCG/ML INJECTION SOLUTION 1 injection ev ruben 2 weeks CYANOCOBALAMIN 32605576875 No Longer Active Kylie boyd SAFETY TECHNICIAN Active ATENOLOL 25 MG ORAL TABLET 1/2 pill by mouth daily, fo r headaches, blood pressure ATENOLOL 62989743148 Active Kylie Holt SAFETY TECHNICIAN Active PROPRANOLOL HCL 80 MG ORAL TABLET 1 tab tue. and thur. PROPRANOLOL HCL 87757325315 No Longer Active Hope Benavidez MD PhD A ctive VITAMIN D3 4000 IU 1 tab 3 times daily VITAMIN D3 4000 IU No Longer Active Hope Benavidez MD PhD Active BACTRIM DS 800-160 MG ORAL TABLET 1 pill by mouth twice claudio y, for UTI SULFAMETHOXAZOLE-TRIMETHOPRIM 60700241319 No Longer Active Hope Benavidez MD PhD Active PROLIA 60 MG/ML SUBCUTANEOUS SOLUTION 1 shot every 6 months for osteoprosis DENOSUMAB 37430166314 Active Hope Benavidez MD PhD Active CALCIUM + D + K 750-500-40 MG-UNT-MCG ORAL TABLET 1 tab by m [facility] twice daily CALCIUM-VITAMIN D-VITAMIN K 93585303013 Active Hope valdez MD PhD Active DAILY VALUE MULTIVITAMIN ORAL TABLET 1 tab by mouth twice daily 201 05/16/14 MULTIPLE VITAMIN 08621615225 Active Hope Benavidez MD PhD Acti ve FISH OIL 306 MG CAPS 1 tab by mouth three times daily OMEGA-3 FATTY ACIDS 03158951303 Active Hope Benavidez MD PhD Active LUTEIN 10 MG ORAL TABLET 1 tab daily LUTEIN 80666887 408 Active Hope Benavidez MD PhD Active TRIAMTERENE-HCTZ 37.5-25 MG ORAL TABLET 1 tab by mouth daily 10/22 TRIAMTERENE-HCTZ 32177747418 Active Kylie Lundoliver SAFETY TECHNICIAN Active CYCLOBENZAPRINE HCL 10 MG ORAL TABLET 1 [facility] three times daily as needed for headaches CYCLOBENZAPRINE HCL 09138038570 No Longer Active Adam Yates MD Active OMEPRAZOLE 20 MG ORAL CAPSULE DELAYED RELEASE 1 tablet by [facility] daily for GERD OMEPRAZOLE 55887337349 No Longer Active Adam Yates MD Active ZOFRAN 8 MG ORAL TABLET 1 tab by mouth every 12 hours prn 4 ONDANSETRON HCL 78839464780 No Longer Active Adam Yates MD Active PHENADOZ 25 MG RECTAL SUPPOSITORY 1 every 4 hrs. PRN 2 PROMETHAZINE HCL 22684060874 No Longer Active Adam Yates MD A ctive POTASSIUM CHLORIDE 20 MEQ ORAL PACKET by mouth twice a day prn 2 POTASSIUM CHLORIDE 54318420932 No Longer Active Adam Carpenter MD Active PROMETHAZINE HCL 25 MG ORAL TABLET 1 Q. 4 hr. PRN PROMETHAZINE HCL 56761793266 No Longer Active Adam Yates MD Active INNOPRAN XL 120 MG ORAL CAPSULE EXTENDED RELEASE 24 HO UR Take one by mouth daily PROPRANOLOL HCL SR BEADS 75865292635 No Longer Active Adam Yates MD Active FLAGYL 500 MG ORAL TABLET 1 pill by mouth three times daily, for diarrhea METRONIDAZOLE 08230949490 No Longer Active Hope landers MD PhD Active DYAZIDE 37.5-25 MG ORAL CAPSULE 1 qd TRIA MTERENE-HCTZ 01935999681 No Longer Active Hope Benavidez MD PhD Active PROZAC 20 MG ORAL CAPSULE 1 q d FLUOXETINE HCL 39025144866 No Longer Active Hope Benavidez MD PhD Active SIMVASTATIN 40 MG ORAL TABLET 1 qd SIMVAS TATIN 73724621994 No Longer Active Adam Yates MD Active MELOXICAM 15 MG ORAL TABLET 1 qd MELOXICAM 35952081616 No Longer Active Adam Yates MD Active EXCEDRIN EXTRA STRENGTH 250-250-65 MG ORAL TABLET 1-2 q6h DE N headache CIOQYHZ-[id number]-NAIDPSCM 74100067562 Active Hope Benavidez MD PhD Active FLAGYL 500 MG ORAL TABLET 1 qid METRONIDAZOL E 70358396555 No Longer Active Adam Yates MD Active LEVAQUIN 750 MG ORAL TABLET 1 qd LEVOFLOXAC IN 78660724892 No Longer Active Adam Yates MD Active ADULT ASPIRIN LOW STRENGTH 81 MG ORAL TABLET DISINTEGRATING 1 qd ASPIRIN 30098359539 Active Hope Benavidez MD PhD Active LEVAQUIN 750 MG ORAL TABLET 1 qd LEVAQUIN 750 MG ORAL TABLET 735558 LEVOFLOXACIN Inactive FLAGYL 500 MG ORAL TABLET 1 qid FLAGYL 500 MG ORAL TABLET 252993 METRONIDAZOLE Inactive MELOXICAM 15 MG ORAL TABLET 1 qd MELOXICAM 15 MG ORAL TABLET 031157 MELOXICAM Inactive SIMVASTATIN 40 MG ORAL TABLET 1 qd SIMVASTATIN 40 MG ORAL TABLET 990588 SIMVASTATIN Inactive PROZAC 20 MG ORAL CAPSULE 1 q d PROZAC 20 MG ORAL CAPSULE 588253 FLUOXETINE HCL Inactive DYAZIDE 37.5-25 MG ORAL CAPSULE 1 qd 5 DYAZIDE 37.5-25 MG ORAL CAPSULE 890753 TRIAMTERENE-HCTZ Inactive INNOPRAN XL 120 MG ORAL CAPSULE EXTENDED RELEASE 24 HO UR Take one by mouth daily INNOPRAN XL 120 MG ORAL CAPSULE EXTENDED RELEASE 24 HOUR PROPRANOLOL HCL SR BEADS Inactive PROMETHAZINE HCL 25 MG ORAL TABLET 1 Q. 4 hr. PRN 2013 PROMETHAZINE HCL 25 MG ORAL TABLET 584532 PROMETHAZINE HCL Inactive POTASSIUM CHLORIDE 20 MEQ ORAL PACKET by mouth twice a day prn 2 POTASSIUM CHLORIDE 20 MEQ ORAL PACKET 7085683 POTASSIUM CHLORIDE Inactive PHENADOZ 25 MG RECTAL SUPPOSITORY 1 every 4 hrs. PRN 2 PHENADOZ 25 MG RECTAL SUPPOSITORY 022531 PROMETHAZINE HCL Inactive ZOFRAN 8 MG ORAL TABLET 1 tab by mouth every 12 hours prn 4 ZOFRAN 8 MG ORAL TABLET 310017 ONDANSETRON HCL Inactive OMEPRAZOLE 20 MG ORAL CAPSULE DELAYED RELEASE 1 tablet by [facility] daily for GERD OMEPRAZOLE 20 MG ORAL CAPSULE DELAYED RELEASE 19 8051 OMEPRAZOLE Inactive CYCLOBENZAPRINE HCL 10 MG ORAL TABLET 1 tablet by mout h three times daily as needed for headaches CYCLOBENZAPRINE HCL 10 MG ORAL TABLET 285852 CYCLOBENZAPRINE HCL Inactive VITAMIN D3 4000 IU 1 tab 3 times daily VITAMIN D3 4000 IU Inactive PROPRANOLOL HCL 80 MG ORAL TABLET 1 tab tue. and thur. PROPRANOLOL HCL 80 MG ORAL TABLET 597713 PROPRANOLOL HCL Inacti ve CYANOCOBALAMIN 1000 MCG/ML INJECTION SOLUTION 1 injection ev ruben 2 weeks CYANOCOBALAMIN 1000 MCG/ML INJECTION SOLUTION 30 9594 CYANOCOBALAMIN Inactive MAGNESIUM GLUCONATE 250 MG ORAL TABLET 1 tab tid 23/10/23 MAGNESIUM GLUCONATE 250 MG ORAL TABLET 457669 MAGNESIUM GLUCONATE Inactive LOMOTIL 2.5-0.025 MG ORAL TABLET 1 tab by mouth prn 23/10/23 LOMOTIL 2.5-0.025 MG ORAL TABLET 0209013 DIPHENOXYLATE-ATROPINE Inac tive FLORANEX ORAL PACKET 1 pack three times daily, for bowel health FLORANEX ORAL PACKET 05547594907 LACTOBACILLUS Inactive IRON 325 (65 Fe) MG ORAL TABLET 1 every other day 2015 IRON 325 (65 Fe) MG ORAL TABLET 729016 FERROUS SULFATE Inactive FLAGYL 500 MG ORAL TABLET 1 pill by mouth three times daily, for diarrhea FLAGYL 500 MG ORAL TABLET 798716 METRONIDAZOLE I nactive BACTRIM DS 800-160 MG ORAL TABLET 1 pill by mouth twice claudio y, for UTI BACTRIM DS 800-160 MG ORAL TABLET 906709 SULFAMETHOXAZOLE-TRIMETHOPRIM Inactive Advance Directives Directive Description Start [...] ... - Chemistry sodium, serum 141 mmol/L 523-371 6496/01/10 potassium, serum 3.7 mmol/L 3.5-5.2 chloride, serum 101 mmol/L 98-107 carbon dioxide, venous blood 31.0 mmol/L 21.0-32 .0 blood glucose 96 mg/dL 65-95 calcium, serum 9.5 mg/dL 8.5-10.1 urea nitrogen, blood 21 mg/dL 7-18 creatinine, serum 1.40 mg/dL 0.60-1.30 Estimated Glomerular Filtration Rate (calc) 39 (?) mL/min/1.73m2 = OR > 60 mL/min cholesterol, serum 211 mg/dL 457-349 0322/01/10 triglyceride, serum, fasting 77 mg/dL 30-200 HDL [...] ... - Chemistry sodium, serum 142 mmol/L 706-507 8612/04/16 carbon dioxide, venous blood 30.0 mmol/L 21.0-32 [...] - Chelle radha sodium, serum 142 mmol/L 483-520 6087/11/02 potassium, serum 3.4 mmol/L 3.5-5.2 chloride, serum [...] mg/dL Encounters Code Encounter Date Provider Facility CPT-76232 Level 4 Est. Patient 15:35:24 GIS ADMINISTRATOR Adam Yates MD [facility] CPT-47692 Level 3 New Patient 12:08:54 GIS ADMINISTRATOR Adam Yates MD [facility] CPT-06899 [id number] Vst-Est Level IV 19:48:30 GIS ADMINISTRATOR Tracy Escalonagabbioliver [facility] CPT-33162 [id number] Vst-Est Level III 14:29:19 CDT Fiorella Holt [facility] CPT-97538 Level 2 Est. Patient 14:58:26 CDT Kylie Lund [facility] CPT-37098 Level 3 Est. Patient 08:15:24 GIS ADMINISTRATOR Kylie Lund [facility] CPT-82521 Level 2 Est. Patient 14:27:16 GIS ADMINISTRATOR Kylie Polagabbi oliver [facility] CPT-69673 Level 3 Est. Patient 17:54:48 CDT Kylie Lund oliver [facility] CPT-36847 Level 3 Est. Patient 16:26:30 CDT Kina blackmon [facility] CPT-39198 Level 3 New Patient 16:22:01 GIS ADMINISTRATOR Adam Yates MD [facility] CPT-56211 Level 4 Est. Patient 17:00:48 CDT Kylie boyd [facility] CPT-53737 Level 3 Est. Patient 13:15:54 CDT Kylie boyd [facility] CPT-03818 Level 3 Est. Patient 09:10:11 CDT Kylie boyd [facility] CPT-35489 Level 4 Est. Patient 12:08:30 GIS ADMINISTRATOR Hope cohn MD PhD [facility] CPT-38787 Level 4 Est. Patient 19:08:42 GIS ADMINISTRATOR Hope cohn MD PhD [facility] CPT-09685 Level 4 Est. Patient 20:04:51 CDT Hope cohn MD PhD [facility] CPT-25573 Level 3 New Patient 01:46:11 GIS ADMINISTRATOR Hope landers MD PhD [facility] Procedures Code Procedure Name Date Entry Date Standard Desc ription CPT-44944 Postop F/U Visit 15:45:41 CDT CPT-00150 Sono Soft Tissue Head and Neck - XRAY US E ONLY 11:56:06 GIS ADMINISTRATOR CPT-84999 Abx/Therapy Injection 09:40:08 GIS ADMINISTRATOR CPT-J0897 Prolia 60 mg 09:40:08 GIS ADMINISTRATOR CPT-74729 First Vx - Ix admin for Medicare patients 02/08 10:02:45 CDT CPT-11472 Fluzone Quadrivalent Intramuscular Suspe nsion 0.5 ML 10:02:45 CDT CPT-91612 Magnesium - LAB USE ONLY 09:41:00 CDT 12/09 CPT-64561 Renal Panel - LAB USE ONLY 09:41:00 CDT 201 09/17/01 CPT-35744 Venipuncture Draw Fee 09:41:00 CDT CPT-67361 Calcium - LAB USE ONLY 17:25:11 CDT CPT-J0897 Prolia 60 mg 15:10:59 CDT CPT-04074 Abx/Therapy Injection 15:10:59 CDT CPT-G0439 MC Subsequent Annual Wellness Exam 14:29:19 CDT CPT-16825 Venipuncture Draw Fee 10:59:04 CDT CPT-89336 CMP - LAB USE ONLY 10:59:04 CDT CPT-25141 CBC with Diff - LAB USE ONLY 10:59:03 CDT CPT-J0897 Prolia 60 mg 15:46:54 GIS ADMINISTRATOR CPT-82076 Abx/Therapy Injection 15:46:54 GIS ADMINISTRATOR CPT-96088 Microalbumin - LAB USE ONLY 09:41:32 GIS ADMINISTRATOR 20 23/01/15 CPT-87973 Free T4 - LAB USE ONLY 09:41:32 GIS ADMINISTRATOR CPT-71670 TSH - LAB USE ONLY 09:41:32 GIS ADMINISTRATOR CPT-10126 BMP - LAB USE ONLY 09:41:32 GIS ADMINISTRATOR CPT-90265 Venipuncture Draw Fee 09:41:32 GIS ADMINISTRATOR CPT-28463 First Vx - Ix admin for Medicare patients 11:19:30 CDT CPT-47146 Fluzone High-Dose Intramuscular Suspension 12/07 11:19:30 CDT CPT-J0897 Prolia 60 mg 14:55:42 CDT CPT-24629 Abx/Therapy Injection 14:55:42 CDT CPT-27663 Bone Density - XRAY USE ONLY 10:27:12 CDT 2 CPT-G0439 Subsequent Annual Wellness Exam 17:54:53 CDT CPT-00730 Foot, left, comp min 3V - XRAY USE ONLY 12:22:49 CDT CPT-G0009 Administration of Pneumococcal Vaccine 3 12:18:00 CDT CPT-74007 Pneumovax 23 Injection Injectable 25 MCG /0.5ML 12:18:00 CDT CPT-J0897 Prolia 60 mg 14:14:16 GIS ADMINISTRATOR CPT-63036 Abx/Therapy Injection 14:14:15 GIS ADMINISTRATOR CPT-57694 Lipid - LAB USE ONLY 10:01:52 GIS ADMINISTRATOR 2 CPT-09120 Calcium - LAB USE ONLY 10:01:51 GIS ADMINISTRATOR CPT-16805 Venipuncture Draw Fee 10:01:51 GIS ADMINISTRATOR CPT-LR Lesion Removal 16:22:01 GIS ADMINISTRATOR CPT-29335 TSH - LAB USE ONLY 14:26:02 CDT CPT-08847 CMP - LAB USE ONLY 14:26:01 CDT CPT-50404 CBC with Diff - LAB USE ONLY 14:26:01 CDT 2 CPT-61284 Venipuncture Draw Fee 14:26:01 CDT CPT-18668 First Vx - Ix admin for Medicare patients 13:27:08 CDT CPT-90727 Fluzone High-Dose Intramuscular Suspension 11/26 13:27:08 CDT CPT-G0438 Initial Annual Wellness Exam 14:19:57 CD T CPT-G0009 Administration of Pneumococcal Vaccine 9 11:36:25 CDT CPT-23531 Prevnar 13 Intramuscular Suspension 1 1:36:25 CDT CPT-99032 Prevnar 13 Intramuscular Suspension 1 0:40:58 CDT CPT-J0897 Prolia 60 mg 10:37:16 CDT CPT-86192 Abx/Therapy Injection 10:37:16 CDT CPT-J0897 Prolia 60 mg 16:09:34 GIS ADMINISTRATOR CPT-J0897 Prolia 60 mg 11:10:35 GIS ADMINISTRATOR CPT-73434 Abx/Therapy Injection 11:10:35 GIS ADMINISTRATOR CPT-000 Give Appropriate Flu Vaccine 17:01:15 GIS ADMINISTRATOR 2 CPT-88826 Fluzone High Dose (65+) 15:03:08 GIS ADMINISTRATOR 02/15 CPT-84668 Immunization Single Admin 15:03:08 GIS ADMINISTRATOR 2014 CPT-OV Office Visit 15:58:06 CDT CPT-J0897 Prolia 60 mg 08:45:38 CDT CPT-43649 Abx/Therapy Injection 08:45:38 CDT CPT-J3420 Vitamin B12 1000mcg (Cyanocobalamin) 09:26:20 GIS ADMINISTRATOR CPT-29440 Abx/Therapy Injection 09:26:20 GIS ADMINISTRATOR CPT-J3420 Vitamin B12 1000mcg (Cyanocobalamin) 09:44:40 GIS ADMINISTRATOR CPT-55075 Abx/Therapy Injection 09:44:40 GIS ADMINISTRATOR CPT-J3420 Vitamin B12 1000mcg (Cyanocobalamin) 09:15:54 GIS ADMINISTRATOR CPT-06115 Abx/Therapy Injection 09:15:54 GIS ADMINISTRATOR CPT-J3420 Vitamin B12 1000mcg (Cyanocobalamin) 09:46:44 GIS ADMINISTRATOR CPT-64501 Abx/Therapy Injection 09:46:44 GIS ADMINISTRATOR CPT-J3420 Vitamin B12 1000mcg (Cyanocobalamin) 09:47:34 GIS ADMINISTRATOR CPT-30128 Abx/Therapy Injection 09:47:34 GIS ADMINISTRATOR CPT-J3420 Vitamin B12 1000mcg (Cyanocobalamin) 14:35:50 GIS ADMINISTRATOR CPT-J3420 Vitamin B12 1000mcg (Cyanocobalamin) 09:25:05 GIS ADMINISTRATOR CPT-52951 Abx/Therapy Injection 09:25:05 GIS ADMINISTRATOR CPT-G0008 Administration of Influenza Virus Vaccine 13:36:47 CDT CPT-43502 Fluzone High-Dose Intramuscular Suspension 11/15 13:36:47 CDT CPT-J0897 Prolia 60 mg 08:50:41 CDT CPT-45303 Abx/Therapy Injection 08:50:41 CDT CPT-69007 Bone Density 12:06:12 CDT CPT-37270 Bone Density 08:54:40 CDT CPT-OV Office Visit 15:37:02 CDT CPT-23906 Postop F/U Visit 15:47:49 CDT CPT-72548 Postop F/U Visit 15:21:02 CDT [facility] Trans[facility] Care Mgmt-High 07:52:27 CDT 20 20/06/01 CPT-70578 Venipuncture Draw Fee 13:51:18 CDT CPT-42094 Venipuncture Draw Fee 10:14:55 GIS ADMINISTRATOR CPT-67208 Venipuncture Draw Fee 13:39:45 GIS ADMINISTRATOR CPT-OV Office Visit 15:11:22 GIS ADMINISTRATOR CPT-77327 Venipuncture Draw Fee 09:20:49 GIS ADMINISTRATOR CPT-33432 Venipuncture Draw Fee 16:52:15 GIS ADMINISTRATOR CPT-04971 Venipuncture Draw Fee 10:37:24 GIS ADMINISTRATOR CPT-43213 Venipuncture Draw Fee 08:21:21 GIS ADMINISTRATOR CPT-95557 Venipuncture Draw Fee 08:30:20 GIS ADMINISTRATOR CPT-16324 Venipuncture Draw Fee 14:53:21 GIS ADMINISTRATOR CPT-91087 Venipuncture Draw Fee 09:40:56 GIS ADMINISTRATOR CPT-95920 Venipuncture Draw Fee 10:30:47 GIS ADMINISTRATOR CPT-59413 Venipuncture Draw Fee 10:46:17 GIS ADMINISTRATOR CPT-10284 Venipuncture Draw Fee 11:12:45 GIS ADMINISTRATOR CPT-28157 Venipuncture Draw Fee 09:53:33 GIS ADMINISTRATOR CPT-93729 Venipuncture Draw Fee 11:53:51 GIS ADMINISTRATOR CPT-04290 Venipuncture Draw Fee 10:33:50 GIS ADMINISTRATOR CPT-29008 Venipuncture Draw Fee 10:05:01 GIS ADMINISTRATOR CPT-43030 Venipuncture Draw Fee 14:32:52 GIS ADMINISTRATOR CPT-44007 Venipuncture Draw Fee 09:46:13 GIS ADMINISTRATOR CPT-63026 Venipuncture Draw Fee 11:34:27 GIS ADMINISTRATOR CPT-69024 Venipuncture Draw Fee 13:17:16 GIS ADMINISTRATOR CPT-38993 Venipuncture Draw Fee 12:05:39 CDT CPT-44753 Venipuncture Draw Fee 12:49:12 CDT CPT-86694 Venipuncture Draw Fee 12:37:18 CDT CPT-45497 Venipuncture Draw Fee 10:57:11 CDT CPT-70097 Venipuncture Draw Fee 13:47:40 CDT CPT-54360 Venipuncture Draw Fee 10:02:17 CDT CPT-29079 TB Tubersol 17:32:32 CDT CPT-OV Office Visit 16:21:53 CDT CPT-OV Office Visit 15:49:22 CDT CPT-OV Office Visit 17:16:31 CDT CPT-OV Office Visit 10:43:31 CDT
--- OUTSIDE RECORDS SUMMARY | 2019-02-09 11:52 | XMS REPORT | Clinical Summary ---
Author Author Renaldo, Florecita Munoz Organization [facility] [employer] Address Unknown Phone Unavailable Allergies, Adverse Reactions, [...] PhD Hyperpotassemia GERD 530.81 Resolved Kylie Yokum [employer] Esophageal reflux Health maintenance exam V70.0 Resolved Adolfo Yates MD Routine general medical examination at a health care facility Anemia 285.9 Resolved Kylie Holt [employer]LL [employer]CH[employer]IC Anemia, unspecified Personal history of malignant neoplasm of large intestine V10.05 Active Adam Yates MD Personal history of malignant neoplasm of large intestine Hypomagnesemia 275.2 Resolved Kylie Holt [employer]LL [employer] MECH[employer]IC Disorders of magnesium metabolism Weakness 780.79 [...] Sebaceous cyst, scalp 706.2 Resolved Kylie Yokum [employer] Sebaceous cyst Cervical lymphadenopathy, anterior, left 785.6 Resolv ed Kylie Yokum [employer] Enlargement of lymph nodes Need for prophylactic vaccination and inoculation against in fluenza V04.81 Resolved Adam Yates MD Need for prophylactic vaccination and inoculation against influenza Preventive health care V70.0 Resolved Kylie Lundu m [employer]CH[employer] Routine general medical examination at a health care facility Thyroid nodule, left 241.0 Resolved Selena Yates MD Nontoxic uninodular goiter Screening mammogram V76.12 Resolved Kylie Yokum A PRN Other screening mammogram Mandy 706.2 Resolved Kylie Yokum [employer] Sebaceous cyst Colon cancer, ascending 153.6 Resolved Kylie Yok um [employer]IC Malignant neoplasm of ascending colon Foot pain, left 729.5 Resolved Kylie Yokum [employer] Pain in limb Splinter 919.6 Resolved Kylie Yokum [employer] MECH[employer]IC Superficial foreign body (splinter) of other, multiple, and unspecified sites, without major open wound and without mention of infection Rash 782.1 Resolved Kylie Yokum [employer]LL [employer]CH[employer]IC Rash and other nonspecific skin eruption Cyst 706.2 Resolved Kylie Yokum [employer]LL [employer] MECH[employer]IC Sebaceous cyst Body Mass Index 23.0-23.9 Adult Refinement 2017 Kylie Yokum [employer]LL [employer] MECH[employer]IC Body Mass Index between 19-24, adult [...] cohn MD PhD UNSPECIFIED VENOUS INSUFFICIENCY ICD-459.81 [place] ctive Adam Yates MD ADENOCARCINOMA, 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 Inac tive Hope Benavidez MD PhD Hyperkalemia ICD-276.7 Inactive Hope Benavidez MD PhD GERD ICD-530.81 Inactive Kylie Holt [employer]CH[employer]IC 2015 Health maintenance exam ICD-V70.0 Bam Yates MD Anemia ICD-285.9 Inactive Kylie Holt TOLL LINE MECH[employer]IC 07/24 Hypomagnesemia ICD-275.2 Inactive Kylie Holt [employer]LL [employer] MECH[employer]IC Weakness ICD-780.79 Inactive Hope Benavidez MD [...] cyst, scalp ICD-706.2 Inactive Tracy hi Yokum [employer]LL [employer] Cervical lymphadenopathy, anterior, left ICD-785.6 Inactive Kylie Yokum [employer]LL [employer]IC Need for prophylactic vaccination and inoculation against in fluenza ICD-V04.81 Inactive Adam Yates MD Preventive health care ICD-V70.0 Inactive Ka thi Yokum TOLL [employer] MECH[employer]IC Thyroid nodule, left ICD-241.0 Inactive Selena Yates MD Screening mammogram ICD-V76.12 Inactive Kylie Yokum [employer]LL [employer] MECH[employer]IC Mandy ICD-706.2 Inactive Kylie Yokum TOLL LINE MECH[employer]IC 07/20 Colon cancer, ascending ICD-153.6 Inactive K athi Yokum [employer]LL LINE MECH[employer]IC Foot pain, left ICD-729.5 Inactive Kylie Yokum [employer]LL [employer] MECH[employer]IC Splinter ICD-919.6 Inactive Kylie Yokum [employer]LL [employer] MECHANIC 2017 Rash ICD-782.1 Inactive Kylie Yokum [employer]CH[employer]IC 07/25 Cyst ICD-706.2 Inactive Kylie Yokum [employer] MECH[employer]IC 08/11 Unspecified fall, initial encounter ICD-E888.9 Inactive Kylie Yokum [employer] Eye pain, left ICD-379.91 Inactive Kylie Yokum [employer] Pharyngitis, acute ICD-074.0 Inactive Kavin Yates MD [...] arm as needed for pain DICLOFENAC SODIUM 87571576054 Active Kylie Holt APR N Active IMODIUM A-D 2 MG ORAL TABLET 1 tablet twice a day LOPERAMIDE HCL 04648596163 Active Kylie Holt APRN Active COQ10 100 MG ORAL CAPSULE 1 daily COENZYME Q10 093119 41599 Active Fay Alberts [facility] Active VITAMIN D3 2000 UNIT ORAL CAPSULE Melaleuca-One daily CHOLECALCIFEROL 34233206610 Active Kylie Holt APRN Active PROBIOTIC DAILY ORAL CAPSULE Take one daily PROBIO TIC PRODUCT 29734771489 Active Kylie Holt APRN Active IRON 325 (65 Fe) MG ORAL TABLET 1 every other day FERROUS SULFATE 44260795700 No Longer Active Kylie Holt APRN Active FLORANEX ORAL PACKET 1 pack three times daily, for bowel health LACTOBACILLUS 78955224163 No Longer Active Kylie Holt APRN Active LOMOTIL 2.5-0.025 MG ORAL TABLET 1 tab by mouth prn 23/10/23 DIPHENOXYLATE-ATROPINE 19986555147 No Longer Active Kylie Lundum [employer]LL [employer] MECH[employer]IC Active MAGNESIUM GLUCONATE 250 MG ORAL TABLET 1 tab tid 23/10/23 MAGNESIUM GLUCONATE 63807611190 No Longer Active Kylie Lundum AMY Active CYANOCOBALAMIN 1000 MCG/ML INJECTION SOLUTION 1 injection ev ruben 2 weeks CYANOCOBALAMIN 77843536291 No Longer Active Kylie boyd [employer]LL [employer] MECH[employer]IC Active ATENOLOL 25 MG ORAL TABLET 1/2 pill by mouth daily, fo r headaches, blood pressure ATENOLOL 71281818236 Active Kylie Holt TOLL LINE MECH[employer]IC Active PROPRANOLOL HCL 80 MG ORAL TABLET 1 tab tue. and thur. PROPRANOLOL HCL 52876271137 No Longer Active Hope Benavidez MD PhD A ctive VITAMIN D3 4000 IU 1 tab 3 times daily VITAMIN D3 4000 IU No Longer Active Hope Benavidez MD PhD Active BACTRIM DS 800-160 MG ORAL TABLET 1 pill by mouth twice claudio y, for UTI SULFAMETHOXAZOLE-TRIMETHOPRIM 92948138185 No Longer Active Hope Benavidez MD PhD Active PROLIA 60 MG/ML SUBCUTANEOUS SOLUTION 1 shot every 6 months for osteoprosis DENOSUMAB 49898555094 Active Hope Benavidez MD PhD Active CALCIUM + D + K 750-500-40 MG-UNT-MCG ORAL TABLET 1 tab by m [facility] twice daily CALCIUM-VITAMIN D-VITAMIN K 95380064086 Active Hope valdez MD PhD Active DAILY VALUE MULTIVITAMIN ORAL TABLET 1 tab by mouth twice daily 201 05/16/14 MULTIPLE VITAMIN 71160821643 Active Hope Benavidez MD PhD Acti ve FISH OIL 306 MG CAPS 1 tab by mouth three times daily OMEGA-3 FATTY ACIDS 64570411775 Active Hope Benavidez MD PhD Active LUTEIN 10 MG ORAL TABLET 1 tab daily LUTEIN 59159363 408 Active Hope Benavidez MD PhD Active TRIAMTERENE-HCTZ 37.5-25 MG ORAL TABLET 1 tab by mouth daily 10/22 TRIAMTERENE-HCTZ 17811585412 Active Kylie Lundoliver [employer] MECH[employer]IC Active CYCLOBENZAPRINE HCL 10 MG ORAL TABLET [facility] daily as needed for headaches CYCLOBENZAPRINE HCL 00358392321 No Longer Active Adam Yates MD Active OMEPRAZOLE 20 MG ORAL CAPSULE DELAYED RELEASE 1 tablet by mo [facility] daily for GERD OMEPRAZOLE 68167805580 No Longer Active Adam Yates MD Active ZOFRAN 8 MG ORAL TABLET 1 tab by mouth every 12 hours prn 4 ONDANSETRON HCL 29070958063 No Longer Active Adam Yates MD Active PHENADOZ 25 MG RECTAL SUPPOSITORY 1 every 4 hrs. PRN 2 PROMETHAZINE HCL 21748524110 No Longer Active Adam Yates MD A ctive POTASSIUM CHLORIDE 20 MEQ ORAL PACKET by mouth twice a day prn 2 POTASSIUM CHLORIDE 14773043181 No Longer Active Adam Carpenter MD Active PROMETHAZINE HCL 25 MG ORAL TABLET 1 Q. 4 hr. PRN PROMETHAZINE HCL 78765710644 No Longer Active Adam Yates MD Active INNOPRAN XL 120 MG ORAL CAPSULE EXTENDED RELEASE 24 HO UR Take one by mouth daily PROPRANOLOL HCL SR BEADS 63642203343 No Longer Active Adam Yates MD Active FLAGYL 500 MG ORAL TABLET 1 pill by mouth three times daily, for diarrhea METRONIDAZOLE 80294680627 No Longer Active Hope landers MD PhD Active DYAZIDE 37.5-25 MG ORAL CAPSULE 1 qd TRIA MTERENE-HCTZ 97989358037 No Longer Active Hope Benavidez MD PhD Active PROZAC 20 MG ORAL CAPSULE 1 q d FLUOXETINE HCL 46232531235 No Longer Active Hope Benavidez MD PhD Active SIMVASTATIN 40 MG ORAL TABLET 1 qd SIMVAS TATIN 77765835156 No Longer Active Adam Yates MD Active MELOXICAM 15 MG ORAL TABLET 1 qd MELOXICAM 88209389249 No Longer Active Adam Yates MD Active EXCEDRIN EXTRA STRENGTH 250-250-65 MG ORAL TABLET 1-2 q6h IL N headache [id number]-CPUIRAEM 23310718942 Active Hope Benavidez MD PhD Active FLAGYL 500 MG ORAL TABLET 1 qid METRONIDAZOL E 21141991256 No Longer Active Adam Yates MD Active LEVAQUIN 750 MG ORAL TABLET 1 qd LEVOFLOXAC IN 33138622316 No Longer Active Adam Yates MD Active ADULT ASPIRIN LOW STRENGTH 81 MG ORAL TABLET DISINTEGRATING 1 qd ASPIRIN 26447133438 Active Hope Benavidez MD PhD Active LEVAQUIN 750 MG ORAL TABLET 1 qd LEVAQUIN 750 MG ORAL TABLET 492480 LEVOFLOXACIN Inactive FLAGYL 500 MG ORAL TABLET 1 qid FLAGYL 500 MG ORAL TABLET 090125 METRONIDAZOLE Inactive MELOXICAM 15 MG ORAL TABLET 1 qd MELOXICAM 15 MG ORAL TABLET 831394 MELOXICAM Inactive SIMVASTATIN 40 MG ORAL TABLET 1 qd SIMVASTATIN 40 MG ORAL TABLET 465586 SIMVASTATIN Inactive PROZAC 20 MG ORAL CAPSULE 1 q d PROZAC 20 MG ORAL CAPSULE 714136 FLUOXETINE HCL Inactive DYAZIDE 37.5-25 MG ORAL CAPSULE 1 qd 5 DYAZIDE 37.5-25 MG ORAL CAPSULE 515370 TRIAMTERENE-HCTZ Inactive INNOPRAN XL 120 MG ORAL CAPSULE EXTENDED RELEASE 24 HO UR Take one by mouth daily INNOPRAN XL 120 MG ORAL CAPSULE EXTENDED RELEASE 24 HOUR PROPRANOLOL HCL SR BEADS Inactive PROMETHAZINE HCL 25 MG ORAL TABLET 1 Q. 4 hr. PRN 2013 PROMETHAZINE HCL 25 MG ORAL TABLET 351891 PROMETHAZINE HCL Inactive POTASSIUM CHLORIDE 20 MEQ ORAL PACKET by mouth twice a day prn 2 POTASSIUM CHLORIDE 20 MEQ ORAL PACKET 1075721 POTASSIUM CHLORIDE Inactive PHENADOZ 25 MG RECTAL SUPPOSITORY 1 every 4 hrs. PRN 2 PHENADOZ 25 MG RECTAL SUPPOSITORY 716840 PROMETHAZINE HCL Inactive ZOFRAN 8 MG ORAL TABLET 1 tab by mouth every 12 hours prn 4 ZOFRAN 8 MG ORAL TABLET 707733 ONDANSETRON HCL Inactive OMEPRAZOLE 20 MG ORAL CAPSULE DELAYED RELEASE 1 tablet by [facility] daily for GERD OMEPRAZOLE 20 MG ORAL CAPSULE DELAYED RELEASE 19 8051 OMEPRAZOLE Inactive CYCLOBENZAPRINE HCL 10 MG ORAL TABLET 1 tablet by mout h three times daily as needed for headaches CYCLOBENZAPRINE HCL 10 MG ORAL TABLET 208324 CYCLOBENZAPRINE HCL Inactive VITAMIN D3 4000 IU 1 tab 3 times daily VITAMIN D3 4000 IU Inactive PROPRANOLOL HCL 80 MG ORAL TABLET 1 tab tue. and thur. PROPRANOLOL HCL 80 MG ORAL TABLET 998816 PROPRANOLOL HCL Inacti ve CYANOCOBALAMIN 1000 MCG/ML INJECTION SOLUTION 1 injection ev ruben 2 weeks CYANOCOBALAMIN 1000 MCG/ML INJECTION SOLUTION 30 9594 CYANOCOBALAMIN Inactive MAGNESIUM GLUCONATE 250 MG ORAL TABLET 1 tab tid 23/10/23 MAGNESIUM GLUCONATE 250 MG ORAL TABLET 297771 MAGNESIUM GLUCONATE Inactive LOMOTIL 2.5-0.025 MG ORAL TABLET 1 tab by mouth prn 23/10/23 LOMOTIL 2.5-0.025 MG ORAL TABLET 4412451 DIPHENOXYLATE-ATROPINE Inac tive FLORANEX ORAL PACKET 1 pack three times daily, for bowel health FLORANEX ORAL PACKET 14906029332 LACTOBACILLUS Inactive IRON 325 (65 Fe) MG ORAL TABLET 1 every other day 2015 IRON 325 (65 Fe) MG ORAL TABLET 617018 FERROUS SULFATE Inactive FLAGYL 500 MG ORAL TABLET 1 pill by mouth three times daily, for diarrhea FLAGYL 500 MG ORAL TABLET 590329 METRONIDAZOLE I nactive BACTRIM DS 800-160 MG ORAL TABLET 1 pill by mouth twice claudio y, for UTI BACTRIM DS 800-160 MG ORAL TABLET 541350 SULFAMETHOXAZOLE-TRIMETHOPRIM Inactive Advance Directives Directive Description Start [...] ... - Chemistry sodium, serum 141 mmol/L 850-948 3776/01/10 potassium, serum 3.7 mmol/L 3.5-5.2 chloride, serum 101 mmol/L 98-107 carbon dioxide, venous blood 31.0 mmol/L 21.0-32 .0 blood glucose 96 mg/dL 65-95 calcium, serum 9.5 mg/dL 8.5-10.1 urea nitrogen, blood 21 mg/dL 7-18 creatinine, serum 1.40 mg/dL 0.60-1.30 Estimated Glomerular Filtration Rate (calc) 39 (?) mL/min/1.73m2 = OR > 60 mL/min cholesterol, serum 211 mg/dL 064-480 8389/01/10 triglyceride, serum, fasting 77 mg/dL 30-200 HDL [...] ... - Chemistry sodium, serum 142 mmol/L 863-882 7158/04/16 carbon dioxide, venous blood 30.0 mmol/L 21.0-32 [...] - Chelle radha sodium, serum 142 mmol/L 954-841 1299/11/02 potassium, serum 3.4 mmol/L 3.5-5.2 chloride, serum [...] mg/dL Encounters Code Encounter Date Provider Facility CPT-31579 Level 4 Est. Patient 15:35:24 CERTIFIED PHYSICIAN ASSISTANT Adam Yates MD [facility] CPT-81313 Level 3 New Patient 12:08:54 CERTIFIED PHYSICIAN ASSISTANT Adam Yates MD [facility] CPT-90491 [id number] Vst-Est Level IV 19:48:30 CERTIFIED PHYSICIAN ASSISTANT Tracy Escalonagabbioliver [facility] CPT-94495 [id number] Vst-Est Level III 14:29:19 CDT Fiorella Holt [facility] CPT-83718 Level 2 Est. Patient 14:58:26 CDT Kylie Lund [facility] CPT-28698 Level 3 Est. Patient 08:15:24 CERTIFIED PHYSICIAN ASSISTANT Kylie Lund [facility] CPT-41970 Level 2 Est. Patient 14:27:16 CERTIFIED PHYSICIAN ASSISTANT Kylie Polagabbi oliver [facility] CPT-45264 Level 3 Est. Patient 17:54:48 CDT Kylie Lund oliver [facility] CPT-14737 Level 3 Est. Patient 16:26:30 CDT Kina blackmon [facility] CPT-16178 Level 3 New Patient 16:22:01 CERTIFIED PHYSICIAN ASSISTANT Adam Yates MD [facility] CPT-60305 Level 4 Est. Patient 17:00:48 CDT Kylie boyd [facility] CPT-90269 Level 3 Est. Patient 13:15:54 CDT Kylie boyd [facility] CPT-29705 Level 3 Est. Patient 09:10:11 CDT Kylie boyd [facility] CPT-58832 Level 4 Est. Patient 12:08:30 CERTIFIED PHYSICIAN ASSISTANT Hope cohn MD PhD [facility] CPT-67775 Level 4 Est. Patient 19:08:42 CERTIFIED PHYSICIAN ASSISTANT Hope cohn MD PhD [facility] CPT-81801 Level 4 Est. Patient 20:04:51 CDT Hope cohn MD PhD [facility] CPT-14974 Level 3 New Patient 01:46:11 CERTIFIED PHYSICIAN ASSISTANT Hope landers MD PhD [facility] Procedures Code Procedure Name Date Entry Date Standard Desc ription CPT-54421 Postop F/U Visit 15:45:41 CDT CPT-18493 Sono Soft Tissue Head and Neck - XRAY US E ONLY 11:56:06 CERTIFIED PHYSICIAN ASSISTANT CPT-18743 Abx/Therapy Injection 09:40:08 CERTIFIED PHYSICIAN ASSISTANT CPT-J0897 Prolia 60 mg 09:40:08 CERTIFIED PHYSICIAN ASSISTANT CPT-32839 First Vx - Ix admin for Medicare patients 02/08 10:02:45 CDT CPT-28319 Fluzone Quadrivalent Intramuscular Suspe nsion 0.5 ML 10:02:45 CDT CPT-62860 Magnesium - LAB USE ONLY 09:41:00 CDT 12/09 CPT-10313 Renal Panel - LAB USE ONLY 09:41:00 CDT 201 09/17/01 CPT-04192 Venipuncture Draw Fee 09:41:00 CDT CPT-83754 Calcium - LAB USE ONLY 17:25:11 CDT CPT-J0897 Prolia 60 mg 15:10:59 CDT CPT-55464 Abx/Therapy Injection 15:10:59 CDT CPT-G0439 MC Subsequent Annual Wellness Exam 14:29:19 CDT CPT-72014 Venipuncture Draw Fee 10:59:04 CDT CPT-35058 CMP - LAB USE ONLY 10:59:04 CDT CPT-26607 CBC with Diff - LAB USE ONLY 10:59:03 CDT CPT-J0897 Prolia 60 mg 15:46:54 CERTIFIED PHYSICIAN ASSISTANT CPT-06016 Abx/Therapy Injection 15:46:54 CERTIFIED PHYSICIAN ASSISTANT CPT-41011 Microalbumin - LAB USE ONLY 09:41:32 CERTIFIED PHYSICIAN ASSISTANT 20 23/01/15 CPT-35813 Free T4 - LAB USE ONLY 09:41:32 CERTIFIED PHYSICIAN ASSISTANT CPT-12613 TSH - LAB USE ONLY 09:41:32 CERTIFIED PHYSICIAN ASSISTANT CPT-20849 BMP - LAB USE ONLY 09:41:32 CERTIFIED PHYSICIAN ASSISTANT CPT-51765 Venipuncture Draw Fee 09:41:32 CERTIFIED PHYSICIAN ASSISTANT CPT-36650 First Vx - Ix admin for Medicare patients 11:19:30 CDT CPT-73004 Fluzone High-Dose Intramuscular Suspension 12/07 11:19:30 CDT CPT-J0897 Prolia 60 mg 14:55:42 CDT CPT-48076 Abx/Therapy Injection 14:55:42 CDT CPT-51694 Bone Density - XRAY USE ONLY 10:27:12 CDT 2 CPT-G0439 Subsequent Annual Wellness Exam 17:54:53 CDT CPT-63979 Foot, left, comp min 3V - XRAY USE ONLY 12:22:49 CDT CPT-G0009 Administration of Pneumococcal Vaccine 3 12:18:00 CDT CPT-72211 Pneumovax 23 Injection Injectable 25 MCG /0.5ML 12:18:00 CDT CPT-J0897 Prolia 60 mg 14:14:16 CERTIFIED PHYSICIAN ASSISTANT CPT-35335 Abx/Therapy Injection 14:14:15 CERTIFIED PHYSICIAN ASSISTANT CPT-51189 Lipid - LAB USE ONLY 10:01:52 CERTIFIED PHYSICIAN ASSISTANT 2 CPT-05186 Calcium - LAB USE ONLY 10:01:51 CERTIFIED PHYSICIAN ASSISTANT CPT-81041 Venipuncture Draw Fee 10:01:51 CERTIFIED PHYSICIAN ASSISTANT CPT-LR Lesion Removal 16:22:01 CERTIFIED PHYSICIAN ASSISTANT CPT-02519 TSH - LAB USE ONLY 14:26:02 CDT CPT-40478 CMP - LAB USE ONLY 14:26:01 CDT CPT-46789 CBC with Diff - LAB USE ONLY 14:26:01 CDT 2 CPT-08782 Venipuncture Draw Fee 14:26:01 CDT CPT-25615 First Vx - Ix admin for Medicare patients 13:27:08 CDT CPT-13325 Fluzone High-Dose Intramuscular Suspension 11/26 13:27:08 CDT CPT-G0438 Initial Annual Wellness Exam 14:19:57 CD T CPT-G0009 Administration of Pneumococcal Vaccine 9 11:36:25 CDT CPT-77072 Prevnar 13 Intramuscular Suspension 1 1:36:25 CDT CPT-71343 Prevnar 13 Intramuscular Suspension 1 0:40:58 CDT CPT-J0897 Prolia 60 mg 10:37:16 CDT CPT-60517 Abx/Therapy Injection 10:37:16 CDT CPT-J0897 Prolia 60 mg 16:09:34 CERTIFIED PHYSICIAN ASSISTANT CPT-J0897 Prolia 60 mg 11:10:35 CERTIFIED PHYSICIAN ASSISTANT CPT-97313 Abx/Therapy Injection 11:10:35 CERTIFIED PHYSICIAN ASSISTANT CPT-000 Give Appropriate Flu Vaccine 17:01:15 CERTIFIED PHYSICIAN ASSISTANT 2 CPT-69128 Fluzone High Dose (65+) 15:03:08 CERTIFIED PHYSICIAN ASSISTANT 02/15 CPT-10630 Immunization Single Admin 15:03:08 CERTIFIED PHYSICIAN ASSISTANT 2014 CPT-OV Office Visit 15:58:06 CDT CPT-J0897 Prolia 60 mg 08:45:38 CDT CPT-75478 Abx/Therapy Injection 08:45:38 CDT CPT-J3420 Vitamin B12 1000mcg (Cyanocobalamin) 09:26:20 CERTIFIED PHYSICIAN ASSISTANT CPT-14142 Abx/Therapy Injection 09:26:20 CERTIFIED PHYSICIAN ASSISTANT CPT-J3420 Vitamin B12 1000mcg (Cyanocobalamin) 09:44:40 CERTIFIED PHYSICIAN ASSISTANT CPT-47791 Abx/Therapy Injection 09:44:40 CERTIFIED PHYSICIAN ASSISTANT CPT-J3420 Vitamin B12 1000mcg (Cyanocobalamin) 09:15:54 CERTIFIED PHYSICIAN ASSISTANT CPT-38502 Abx/Therapy Injection 09:15:54 CERTIFIED PHYSICIAN ASSISTANT CPT-J3420 Vitamin B12 1000mcg (Cyanocobalamin) 09:46:44 CERTIFIED PHYSICIAN ASSISTANT CPT-91416 Abx/Therapy Injection 09:46:44 CERTIFIED PHYSICIAN ASSISTANT CPT-J3420 Vitamin B12 1000mcg (Cyanocobalamin) 09:47:34 CERTIFIED PHYSICIAN ASSISTANT CPT-20023 Abx/Therapy Injection 09:47:34 CERTIFIED PHYSICIAN ASSISTANT CPT-J3420 Vitamin B12 1000mcg (Cyanocobalamin) 14:35:50 CERTIFIED PHYSICIAN ASSISTANT CPT-J3420 Vitamin B12 1000mcg (Cyanocobalamin) 09:25:05 CERTIFIED PHYSICIAN ASSISTANT CPT-57258 Abx/Therapy Injection 09:25:05 CERTIFIED PHYSICIAN ASSISTANT CPT-G0008 Administration of Influenza Virus Vaccine 13:36:47 CDT CPT-66622 Fluzone High-Dose Intramuscular Suspension 11/15 13:36:47 CDT CPT-J0897 Prolia 60 mg 08:50:41 CDT CPT-04925 Abx/Therapy Injection 08:50:41 CDT CPT-19241 Bone Density 12:06:12 CDT CPT-44964 Bone Density 08:54:40 CDT CPT-OV Office Visit 15:37:02 CDT CPT-94880 Postop F/U Visit 15:47:49 CDT CPT-77738 Postop F/U Visit 15:21:02 CDT CPT-[facility] Transitional Care Mgmt-High 07:52:27 CDT 20 20/06/01 CPT-85778 Venipuncture Draw Fee 13:51:18 CDT CPT-42470 Venipuncture Draw Fee 10:14:55 CERTIFIED PHYSICIAN ASSISTANT CPT-34549 Venipuncture Draw Fee 13:39:45 CERTIFIED PHYSICIAN ASSISTANT CPT-OV Office Visit 15:11:22 CERTIFIED PHYSICIAN ASSISTANT CPT-10545 Venipuncture Draw Fee 09:20:49 CERTIFIED PHYSICIAN ASSISTANT CPT-44070 Venipuncture Draw Fee 16:52:15 CERTIFIED PHYSICIAN ASSISTANT CPT-81063 Venipuncture Draw Fee 10:37:24 CERTIFIED PHYSICIAN ASSISTANT CPT-43186 Venipuncture Draw Fee 08:21:21 CERTIFIED PHYSICIAN ASSISTANT CPT-39828 Venipuncture Draw Fee 08:30:20 CERTIFIED PHYSICIAN ASSISTANT CPT-44876 Venipuncture Draw Fee 14:53:21 CERTIFIED PHYSICIAN ASSISTANT CPT-94670 Venipuncture Draw Fee 09:40:56 CERTIFIED PHYSICIAN ASSISTANT CPT-70903 Venipuncture Draw Fee 10:30:47 CERTIFIED PHYSICIAN ASSISTANT CPT-42613 Venipuncture Draw Fee 10:46:17 CERTIFIED PHYSICIAN ASSISTANT CPT-56563 Venipuncture Draw Fee 11:12:45 CERTIFIED PHYSICIAN ASSISTANT CPT-95411 Venipuncture Draw Fee 09:53:33 CERTIFIED PHYSICIAN ASSISTANT CPT-26826 Venipuncture Draw Fee 11:53:51 CERTIFIED PHYSICIAN ASSISTANT CPT-66833 Venipuncture Draw Fee 10:33:50 CERTIFIED PHYSICIAN ASSISTANT CPT-34129 Venipuncture Draw Fee 10:05:01 CERTIFIED PHYSICIAN ASSISTANT CPT-87755 Venipuncture Draw Fee 14:32:52 CERTIFIED PHYSICIAN ASSISTANT CPT-54118 Venipuncture Draw Fee 09:46:13 CERTIFIED PHYSICIAN ASSISTANT CPT-19819 Venipuncture Draw Fee 11:34:27 CERTIFIED PHYSICIAN ASSISTANT CPT-05335 Venipuncture Draw Fee 13:17:16 CERTIFIED PHYSICIAN ASSISTANT CPT-63974 Venipuncture Draw Fee 12:05:39 CDT CPT-71655 Venipuncture Draw Fee 12:49:12 CDT CPT-31264 Venipuncture Draw Fee 12:37:18 CDT CPT-49929 Venipuncture Draw Fee 10:57:11 CDT CPT-98412 Venipuncture Draw Fee 13:47:40 CDT CPT-15214 Venipuncture Draw Fee 10:02:17 CDT CPT-55237 TB Tubersol 17:32:32 CDT CPT-OV Office Visit 16:21:53 CDT CPT-OV Office Visit 15:49:22 CDT CPT-OV Office Visit 17:16:31 CDT CPT-OV Office Visit 10:43:31 CDT
--- OUTSIDE RECORDS SUMMARY | 2019-02-09 11:53 | XMS REPORT | Clinical Summary ---
Author Author Renaldo, Florecita Munoz Organization [facility] Address Unknown Phone Unavailable Allergies, Adverse Reactions, [...] PhD Hyperpotassemia GERD 530.81 Resolved Kylie Yokum DIRECTOR OF CARDIOLOGY SERVICE LINE Esophageal reflux Health maintenance exam V70.0 Resolved Adolfo Yates MD Routine general medical examination at a health care facility Anemia 285.9 Resolved Kylie Yanet DIRECTOR OF CARDIOLOGY SERVICE LINE Anemia, unspecified Personal history of malignant neoplasm of large intestine V10.05 Active Adam Yates MD Personal history of malignant neoplasm of large intestine Hypomagnesemia 275.2 Resolved Kylie Yanet DIRECTOR OF CARDIOLOGY SERVICE LINE Disorders of magnesium metabolism Weakness 780.79 Resolved [...] Sebaceous cyst, scalp 706.2 Resolved Kylie Yokum DIRECTOR OF CARDIOLOGY SERVICE LINE Sebaceous cyst Cervical lymphadenopathy, anterior, left 785.6 Resolv ed Kylie Yokum DIRECTOR OF CARDIOLOGY SERVICE LINE Enlargement of lymph nodes Need for prophylactic vaccination and inoculation against in fluenza V04.81 Resolved Adam Yates MD Need for prophylactic vaccination and inoculation against influenza Preventive health care V70.0 Resolved Kylie Lundu m DIRECTOR OF CARDIOLOGY SERVICE LINE Routine general medical examination at a health care facility Thyroid nodule, left 241.0 Resolved Selena Yates MD Nontoxic uninodular goiter Screening mammogram V76.12 Resolved Kylie Yokum A PRN Other screening mammogram Mandy 706.2 Resolved Kylie Yokum DIRECTOR OF CARDIOLOGY SERVICE LINE Sebaceous cyst Colon cancer, ascending 153.6 Resolved Kylie Yok um DIRECTOR OF CARDIOLOGY SERVICE LINE Malignant neoplasm of ascending colon Foot pain, left 729.5 Resolved Kylie Yokum DIRECTOR OF CARDIOLOGY SERVICE LINE Pain in limb Splinter 919.6 Resolved Kylie Yokum DIRECTOR OF CARDIOLOGY SERVICE LINE Superficial foreign body (splinter) of other, multiple, and unspecified sites, without major open wound and without mention of infection Rash 782.1 Resolved Kylie Yokum DIRECTOR OF CARDIOLOGY SERVICE LINE Rash and other nonspecific skin eruption Cyst 706.2 Resolved Kylie Yokum DIRECTOR OF CARDIOLOGY SERVICE LINE Sebaceous cyst Body Mass Index 23.0-23.9 Adult Refinement 2017 Kylie Yokum DIRECTOR OF CARDIOLOGY SERVICE LINE Body Mass Index between 19-24, adult BMI [...] cohn MD PhD UNSPECIFIED VENOUS INSUFFICIENCY ICD-459.81 [place] ctive Adam Yates MD ADENOCARCINOMA, 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 Inac tive Hope Benavidez MD PhD Hyperkalemia ICD-276.7 Inactive Hope Benavidez MD PhD GERD ICD-530.81 Inactive Kylie Holt DIRECTOR OF CARDIOLOGY SERVICE LINE 2015 Health maintenance exam ICD-V70.0 Bam Yates MD Anemia ICD-285.9 Inactive Kylie Holt DIRECTOR OF CARDIOLOGY SERVICE LINE 07/24 Hypomagnesemia ICD-275.2 Inactive Kylie Holt DIRECTOR OF CARDIOLOGY SERVICE LINE Weakness ICD-780.79 Inactive Hope Benavidez MD P [...] cyst, scalp ICD-706.2 Inactive Tracy hi Yokum DIRECTOR OF CARDIOLOGY SERVICE LINE Cervical lymphadenopathy, anterior, left ICD-785.6 Inactive Kylie Yokum DIRECTOR OF CARDIOLOGY SERVICE LINE Need for prophylactic vaccination and inoculation against in fluenza ICD-V04.81 Inactive Adam Yates MD Preventive health care ICD-V70.0 Inactive Ka thi Yokum DIRECTOR OF CARDIOLOGY SERVICE LINE Thyroid nodule, left ICD-241.0 Inactive Selena Yates MD Screening mammogram ICD-V76.12 Inactive Kylie Yokum DIRECTOR OF CARDIOLOGY SERVICE LINE Mandy ICD-706.2 Inactive Kylie Yokum DIRECTOR OF CARDIOLOGY SERVICE LINE 07/20 Colon cancer, ascending ICD-153.6 Inactive K athi Yokum DIRECTOR OF CARDIOLOGY SERVICE LINE Foot pain, left ICD-729.5 Inactive Kylie Yokum DIRECTOR OF CARDIOLOGY SERVICE LINE Splinter ICD-919.6 Inactive Kylie Yokum DIRECTOR OF CARDIOLOGY SERVICE LINE 2017 Rash ICD-782.1 Inactive Kylie Yokum DIRECTOR OF CARDIOLOGY SERVICE LINE 07/25 Cyst ICD-706.2 Inactive Kylie Yokum DIRECTOR OF CARDIOLOGY SERVICE LINE 08/11 Unspecified fall, initial encounter ICD-E888.9 Inactive Kylie Yokum DIRECTOR OF CARDIOLOGY SERVICE LINE Eye pain, left ICD-379.91 Inactive Kylie Yokum DIRECTOR OF CARDIOLOGY SERVICE LINE Pharyngitis, acute ICD-074.0 Inactive Kavin Yates MD [...] arm as needed for pain DICLOFENAC SODIUM 08897778000 Active Kylie Holt APR N Active IMODIUM A-D 2 MG ORAL TABLET 1 tablet twice a day LOPERAMIDE HCL 77101144315 Active Kylie Holt APRN Active COQ10 100 MG ORAL CAPSULE 1 daily COENZYME Q10 789686 45450 Active Fay Alberts [facility] Active VITAMIN D3 2000 UNIT ORAL CAPSULE Melaleuca-One daily CHOLECALCIFEROL 35224294084 Active Kylie Holt APRN Active PROBIOTIC DAILY ORAL CAPSULE Take one daily PROBIO TIC PRODUCT 93133079298 Active Kylie Lundum AMY Active IRON 325 (65 Fe) MG ORAL TABLET 1 every other day FERROUS SULFATE 30644972006 No Longer Active Kylie Lundum AMY Active FLORANEX ORAL PACKET 1 pack three times daily, for bowel health LACTOBACILLUS 01429729457 No Longer Active Kylie Lundum AMY Active LOMOTIL 2.5-0.025 MG ORAL TABLET 1 tab by mouth prn 23/10/23 DIPHENOXYLATE-ATROPINE 35633998392 No Longer Active Kylie Lundum DIRECTOR OF CARDIOLOGY SERVICE LINE Active MAGNESIUM GLUCONATE 250 MG ORAL TABLET 1 tab tid 23/10/23 MAGNESIUM GLUCONATE 26862859930 No Longer Active Kylie Lundum DIRECTOR OF CARDIOLOGY SERVICE LINE Active CYANOCOBALAMIN 1000 MCG/ML INJECTION SOLUTION 1 injection ev ruben 2 weeks CYANOCOBALAMIN 89906666383 No Longer Active Kylie boyd DIRECTOR OF CARDIOLOGY SERVICE LINE Active ATENOLOL 25 MG ORAL TABLET 1/2 pill by mouth daily, fo r headaches, blood pressure ATENOLOL 63813033935 Active Kylie Holt DIRECTOR OF CARDIOLOGY SERVICE LINE Active PROPRANOLOL HCL 80 MG ORAL TABLET 1 tab tue. and thur. PROPRANOLOL HCL 35995852675 No Longer Active Hope Benavidez MD PhD A ctive VITAMIN D3 4000 IU 1 tab 3 times daily VITAMIN D3 4000 IU No Longer Active Hope Benavidez MD PhD Active BACTRIM DS 800-160 MG ORAL TABLET 1 pill by mouth twice claudio y, for UTI SULFAMETHOXAZOLE-TRIMETHOPRIM 77249459557 No Longer Active Hope Benavidez MD PhD Active PROLIA 60 MG/ML SUBCUTANEOUS SOLUTION 1 shot every 6 months for osteoprosis DENOSUMAB 61942826026 Active Hope Benavidez MD PhD Active CALCIUM + D + K 750-500-40 MG-UNT-MCG ORAL TABLET 1 tab by m out twice daily CALCIUM-VITAMIN D-VITAMIN K 89587819312 Active Hope valdez MD PhD Active DAILY VALUE MULTIVITAMIN ORAL TABLET 1 tab by mouth twice daily 201 05/16/14 MULTIPLE VITAMIN 39964451451 Active Hope Benavidez MD PhD Acti ve FISH OIL 306 MG CAPS 1 tab by mouth three times daily OMEGA-3 FATTY ACIDS 77114243585 Active Hope Benavidez MD PhD Active LUTEIN 10 MG ORAL TABLET 1 tab daily LUTEIN 19384720 408 Active Hope Benavidez MD PhD Active TRIAMTERENE-HCTZ 37.5-25 MG ORAL TABLET 1 tab by mouth daily 10/22 TRIAMTERENE-HCTZ 08907911560 Active Kylieshubham Lundoliver DIRECTOR OF CARDIOLOGY SERVICE LINE Active CYCLOBENZAPRINE HCL 10 MG ORAL TABLET 1 tablet by mout h three times daily as needed for headaches CYCLOBENZAPRINE HCL 52913322991 No Longer Active Adam Yates MD Active OMEPRAZOLE 20 MG ORAL CAPSULE DELAYED RELEASE 1 tablet by mo uth daily for GERD OMEPRAZOLE 56780412051 No Longer Active Adam Yates MD Active ZOFRAN 8 MG ORAL TABLET 1 tab by mouth every 12 hours prn 4 ONDANSETRON HCL 51816783764 No Longer Active Adam Yates MD Active PHENADOZ 25 MG RECTAL SUPPOSITORY 1 every 4 hrs. PRN 2 PROMETHAZINE HCL 36123596632 No Longer Active Adam Yates MD A ctive POTASSIUM CHLORIDE 20 MEQ ORAL PACKET by mouth twice a day prn 2 POTASSIUM CHLORIDE 37546318525 No Longer Active Adam Carpenter MD Active PROMETHAZINE HCL 25 MG ORAL TABLET 1 Q. 4 hr. PRN PROMETHAZINE HCL 15805728999 No Longer Active Adam Yates MD Active INNOPRAN XL 120 MG ORAL CAPSULE EXTENDED RELEASE 24 HO UR Take one by mouth daily PROPRANOLOL HCL SR BEADS 93915385601 No Longer Active Adam Yates MD Active FLAGYL 500 MG ORAL TABLET 1 pill by mouth three times daily, for diarrhea METRONIDAZOLE 60728892535 No Longer Active Hope landers MD PhD Active DYAZIDE 37.5-25 MG ORAL CAPSULE 1 qd TRIA MTERENE-HCTZ 68114257003 No Longer Active Hope Benavidez MD PhD Active PROZAC 20 MG ORAL CAPSULE 1 q d FLUOXETINE HCL 53679008998 No Longer Active Hope Benavidez MD PhD Active SIMVASTATIN 40 MG ORAL TABLET 1 qd SIMVAS TATIN 23064656154 No Longer Active Adam Yates MD Active MELOXICAM 15 MG ORAL TABLET 1 qd MELOXICAM 12079831400 No Longer Active Adam Yates MD Active EXCEDRIN EXTRA STRENGTH 250-250-65 MG ORAL TABLET 1-2 q6h FL N headache [id number] 93288666532 Active Hope Benavidez MD PhD Active FLAGYL 500 MG ORAL TABLET 1 qid METRONIDAZOL E 59872686670 No Longer Active Adam Yates MD Active LEVAQUIN 750 MG ORAL TABLET 1 qd LEVOFLOXAC IN 08722619625 No Longer Active Adam Yates MD Active ADULT ASPIRIN LOW STRENGTH 81 MG ORAL TABLET DISINTEGRATING 1 qd ASPIRIN 27350680757 Active Hope Benavidez MD PhD Active LEVAQUIN 750 MG ORAL TABLET 1 qd LEVAQUIN 750 MG ORAL TABLET 960698 LEVOFLOXACIN Inactive FLAGYL 500 MG ORAL TABLET 1 qid FLAGYL 500 MG ORAL TABLET 544944 METRONIDAZOLE Inactive MELOXICAM 15 MG ORAL TABLET 1 qd MELOXICAM 15 MG ORAL TABLET 479290 MELOXICAM Inactive SIMVASTATIN 40 MG ORAL TABLET 1 qd SIMVASTATIN 40 MG ORAL TABLET 551226 SIMVASTATIN Inactive PROZAC 20 MG ORAL CAPSULE 1 q d PROZAC 20 MG ORAL CAPSULE 718723 FLUOXETINE HCL Inactive DYAZIDE 37.5-25 MG ORAL CAPSULE 1 qd 5 DYAZIDE 37.5-25 MG ORAL CAPSULE 925744 TRIAMTERENE-HCTZ Inactive INNOPRAN XL 120 MG ORAL CAPSULE EXTENDED RELEASE 24 HO UR Take one by mouth daily INNOPRAN XL 120 MG ORAL CAPSULE EXTENDED RELEASE 24 HOUR PROPRANOLOL HCL SR BEADS Inactive PROMETHAZINE HCL 25 MG ORAL TABLET 1 Q. 4 hr. PRN 2013 PROMETHAZINE HCL 25 MG ORAL TABLET 450138 PROMETHAZINE HCL Inactive POTASSIUM CHLORIDE 20 MEQ ORAL PACKET by mouth twice a day prn 2 POTASSIUM CHLORIDE 20 MEQ ORAL PACKET 6243426 POTASSIUM CHLORIDE Inactive PHENADOZ 25 MG RECTAL SUPPOSITORY 1 every 4 hrs. PRN 2 PHENADOZ 25 MG RECTAL SUPPOSITORY 433610 PROMETHAZINE HCL Inactive ZOFRAN 8 MG ORAL TABLET 1 tab by mouth every 12 hours prn 4 ZOFRAN 8 MG ORAL TABLET 734737 ONDANSETRON HCL Inactive OMEPRAZOLE 20 MG ORAL CAPSULE DELAYED RELEASE 1 tablet by [facility] daily for GERD OMEPRAZOLE 20 MG ORAL CAPSULE DELAYED RELEASE 19 8051 OMEPRAZOLE Inactive CYCLOBENZAPRINE HCL 10 MG ORAL TABLET 1 tablet by mout h three times daily as needed for headaches CYCLOBENZAPRINE HCL 10 MG ORAL TABLET 034731 CYCLOBENZAPRINE HCL Inactive VITAMIN D3 4000 IU 1 tab 3 times daily VITAMIN D3 4000 IU Inactive PROPRANOLOL HCL 80 MG ORAL TABLET 1 tab tue. and thur. PROPRANOLOL HCL 80 MG ORAL TABLET 522502 PROPRANOLOL HCL Inacti ve CYANOCOBALAMIN 1000 MCG/ML INJECTION SOLUTION 1 injection ev ruben 2 weeks CYANOCOBALAMIN 1000 MCG/ML INJECTION SOLUTION 30 9594 CYANOCOBALAMIN Inactive MAGNESIUM GLUCONATE 250 MG ORAL TABLET 1 tab tid 23/10/23 MAGNESIUM GLUCONATE 250 MG ORAL TABLET 790919 MAGNESIUM GLUCONATE Inactive LOMOTIL 2.5-0.025 MG ORAL TABLET 1 tab by mouth prn 23/10/23 LOMOTIL 2.5-0.025 MG ORAL TABLET 0268357 DIPHENOXYLATE-ATROPINE Inac tive FLORANEX ORAL PACKET 1 pack three times daily, for bowel health FLORANEX ORAL PACKET 51919897204 LACTOBACILLUS Inactive IRON 325 (65 Fe) MG ORAL TABLET 1 every other day 2015 IRON 325 (65 Fe) MG ORAL TABLET 361552 FERROUS SULFATE Inactive FLAGYL 500 MG ORAL TABLET 1 pill by mouth three times daily, for diarrhea FLAGYL 500 MG ORAL TABLET 787712 METRONIDAZOLE I nactive BACTRIM DS 800-160 MG ORAL TABLET 1 pill by mouth twice claudio y, for UTI BACTRIM DS 800-160 MG ORAL TABLET 421036 SULFAMETHOXAZOLE-TRIMETHOPRIM Inactive Advance Directives Directive Description Start [...] ... - Chemistry sodium, serum 141 mmol/L 622-085 3120/01/10 potassium, serum 3.7 mmol/L 3.5-5.2 chloride, serum 101 mmol/L 98-107 carbon dioxide, venous blood 31.0 mmol/L 21.0-32 .0 blood glucose 96 mg/dL 65-95 calcium, serum 9.5 mg/dL 8.5-10.1 urea nitrogen, blood 21 mg/dL 7-18 creatinine, serum 1.40 mg/dL 0.60-1.30 Estimated Glomerular Filtration Rate (calc) 39 (?) mL/min/1.73m2 = OR > 60 mL/min cholesterol, serum 211 mg/dL 783-518 0535/01/10 triglyceride, serum, fasting 77 mg/dL 30-200 HDL [...] ... - Chemistry sodium, serum 142 mmol/L 940-775 0848/04/16 carbon dioxide, venous blood 30.0 mmol/L 21.0-32 [...] - Chelle radha sodium, serum 142 mmol/L 393-422 6125/11/02 potassium, serum 3.4 mmol/L 3.5-5.2 chloride, serum [...] mg/dL Encounters Code Encounter Date Provider Facility CPT-64934 Level 4 Est. Patient 15:35:24 SERVICE UNIT OPERATOR [employer] Adam Yates MD [facility] CPT-51818 Level 3 New Patient 12:08:54 SERVICE UNIT OPERATOR [employer] WELL Adam Yates MD [facility] CPT-02667 04446-Ddy Vst-Est Level IV 19:48:30 SERVICE UNIT OPERATOR [employer] WELL Tracy Holt [facility] [place] CPT-40721 47857-Jdo Vst-Est Level III 14:29:19 CDT Fiorella Holt [facility] [place] CPT-33996 Level 2 Est. Patient 14:58:26 CDT Kylie Escalonagabbi [facility] [place] CPT-11857 Level 3 Est. Patient 08:15:24 SERVICE UNIT OPERATOR [employer] WELL Kylie Lund [facility] [place] CPT-40390 Level 2 Est. Patient 14:27:16 SERVICE UNIT OPERATOR [employer] WELL Kylie Kevon boyd [facility] [place] CPT-21296 Level 3 Est. Patient 17:54:48 CDT Kylie Polagabbi oliver [facility] [place] CPT-29182 Level 3 Est. Patient 16:26:30 CDT Kina blackmon [facility] CPT-12617 Level 3 New Patient 16:22:01 SERVICE UNIT OPERATOR [employer] WELL Adam Yates MD [facility] CPT-80755 Level 4 Est. Patient 17:00:48 CDT Kylie boyd [facility] [place] CPT-89291 Level 3 Est. Patient 13:15:54 CDT Kylie Lund [facility] CPT-91064 Level 3 Est. Patient 09:10:11 CDT Kylie boyd [facility] CPT-28951 Level 4 Est. Patient 12:08:30 SERVICE UNIT OPERATOR [employer] WE[employer] Hope cohn MD [facility] CPT-99348 Level 4 Est. Patient 19:08:42 SERVICE UNIT OPERATOR [employer] WELL Hope cohn MD [facility] CPT-02356 Level 4 Est. Patient 20:04:51 CDT Hope cohn MD [facility] CPT-24508 Level 3 New Patient 01:46:11 SERVICE UNIT OPERATOR [employer] Hope landers MD [facility] Procedures Code Procedure Name Date Entry Date Standard Desc ription CPT-05935 Postop F/U Visit 15:45:41 CDT CPT-34168 Sono Soft Tissue Head and Neck - XRAY US E ONLY 11:56:06 SERVICE UNIT OPERATOR [employer] CPT-60184 Abx/Therapy Injection 09:40:08 SERVICE UNIT OPERATOR [employer] WE[employer] CPT-J0897 Prolia 60 mg 09:40:08 SERVICE UNIT OPERATOR [employer] CPT-14033 First Vx - Ix admin for Medicare patients 02/08 10:02:45 CDT CPT-51355 Fluzone Quadrivalent Intramuscular Suspe nsion 0.5 ML 10:02:45 CDT CPT-85338 Magnesium - LAB USE ONLY 09:41:00 CDT 12/09 CPT-05335 Renal Panel - LAB USE ONLY 09:41:00 CDT 201 09/17/01 CPT-58749 Venipuncture Draw Fee 09:41:00 CDT CPT-79758 Calcium - LAB USE ONLY 17:25:11 CDT CPT-J0897 Prolia 60 mg 15:10:59 CDT CPT-72254 Abx/Therapy Injection 15:10:59 CDT CPT-G0439 Subsequent Annual Wellness Exam 14:29:19 CDT CPT-44086 Venipuncture Draw Fee 10:59:04 CDT CPT-23841 CMP - LAB USE ONLY 10:59:04 CDT CPT-94108 CBC with Diff - LAB USE ONLY 10:59:03 CDT 2 CPT-J0897 Prolia 60 mg 15:46:54 SERVICE UNIT OPERATOR [employer] WE[employer] CPT-22952 Abx/Therapy Injection 15:46:54 SERVICE UNIT OPERATOR [employer] WE[employer] CPT-51005 Microalbumin - LAB USE ONLY 09:41:32 SERVICE UNIT OPERATOR [employer] WELL 20 23/01/15 CPT-28891 Free T4 - LAB USE ONLY 09:41:32 SERVICE UNIT OPERATOR [employer] WE[employer] CPT-00087 TSH - LAB USE ONLY 09:41:32 SERVICE UNIT OPERATOR [employer] CPT-95166 BMP - LAB USE ONLY 09:41:32 SERVICE UNIT OPERATOR [employer] CPT-61182 Venipuncture Draw Fee 09:41:32 SERVICE UNIT OPERATOR [employer] CPT-23434 First Vx - Ix admin for Medicare patients 11:19:30 CDT CPT-30866 Fluzone High-Dose Intramuscular Suspension 12/07 11:19:30 CDT CPT-J0897 Prolia 60 mg 14:55:42 CDT CPT-51271 Abx/Therapy Injection 14:55:42 CDT CPT-46797 Bone Density - XRAY USE ONLY 10:27:12 CDT 2 CPT-G0439 Subsequent Annual Wellness Exam 17:54:53 CDT CPT-87812 Foot, left, comp min 3V - XRAY USE ONLY 12:22:49 CDT CPT-G0009 Administration of Pneumococcal Vaccine 3 12:18:00 CDT CPT-88441 Pneumovax 23 Injection Injectable 25 MCG /0.5ML 12:18:00 CDT CPT-J0897 Prolia 60 mg 14:14:16 SERVICE UNIT OPERATOR [employer] WE[employer] CPT-04328 Abx/Therapy Injection 14:14:15 SERVICE UNIT OPERATOR [employer] CPT-64244 Lipid - LAB USE ONLY 10:01:52 SERVICE UNIT OPERATOR [employer]IL WELL 2 CPT-63473 Calcium - LAB USE ONLY 10:01:51 SERVICE UNIT OPERATOR [employer] CPT-40926 Venipuncture Draw Fee 10:01:51 SERVICE UNIT OPERATOR [employer] CPT-LR Lesion Removal 16:22:01 SERVICE UNIT OPERATOR [employer] CPT-81724 TSH - LAB USE ONLY 14:26:02 CDT CPT-81755 CMP - LAB USE ONLY 14:26:01 CDT CPT-12335 CBC with Diff - LAB USE ONLY 14:26:01 CDT 2 CPT-17098 Venipuncture Draw Fee 14:26:01 CDT CPT-11494 First Vx - Ix admin for Medicare patients 13:27:08 CDT CPT-27624 Fluzone High-Dose Intramuscular Suspension 11/26 13:27:08 CDT CPT-G0438 Initial Annual Wellness Exam 14:19:57 CD T CPT-G0009 Administration of Pneumococcal Vaccine 9 11:36:25 CDT CPT-37651 Prevnar 13 Intramuscular Suspension 1 1:36:25 CDT CPT-43076 Prevnar 13 Intramuscular Suspension 1 0:40:58 CDT CPT-J0897 Prolia 60 mg 10:37:16 CDT CPT-85119 Abx/Therapy Injection 10:37:16 CDT CPT-J0897 Prolia 60 mg 16:09:34 SERVICE UNIT OPERATOR [employer] WELL CPT-J0897 Prolia 60 mg 11:10:35 SERVICE UNIT OPERATOR [employer] WELL CPT-60660 Abx/Therapy Injection 11:10:35 SERVICE UNIT OPERATOR [employer] WE[employer] CPT-000 Give Appropriate Flu Vaccine 17:01:15 SERVICE UNIT OPERATOR [employer]IL WELL 2 CPT-40096 Fluzone High Dose (65+) 15:03:08 SERVICE UNIT OPERATOR [employer] WELL 02/15 CPT-66993 Immunization Single Admin 15:03:08 SERVICE UNIT OPERATOR [employer] WELL 2014 CPT-OV Office Visit 15:58:06 CDT CPT-J0897 Prolia 60 mg 08:45:38 CDT CPT-54882 Abx/Therapy Injection 08:45:38 CDT CPT-J3420 Vitamin B12 1000mcg (Cyanocobalamin) 09:26:20 SERVICE UNIT OPERATOR [employer] WELL CPT-76914 Abx/Therapy Injection 09:26:20 SERVICE UNIT OPERATOR [employer]IL WELL CPT-J3420 Vitamin B12 1000mcg (Cyanocobalamin) 09:44:40 SERVICE UNIT OPERATOR [employer] WELL CPT-30358 Abx/Therapy Injection 09:44:40 SERVICE UNIT OPERATOR [employer] WELL CPT-J3420 Vitamin B12 1000mcg (Cyanocobalamin) 09:15:54 SERVICE UNIT OPERATOR [employer]IL WELL CPT-67209 Abx/Therapy Injection 09:15:54 SERVICE UNIT OPERATOR [employer] WELL CPT-J3420 Vitamin B12 1000mcg (Cyanocobalamin) 09:46:44 SERVICE UNIT OPERATOR [employer]IL WELL CPT-11638 Abx/Therapy Injection 09:46:44 SERVICE UNIT OPERATOR [employer]IL WELL CPT-J3420 Vitamin B12 1000mcg (Cyanocobalamin) 09:47:34 SERVICE UNIT OPERATOR [employer] WELL CPT-85731 Abx/Therapy Injection 09:47:34 SERVICE UNIT OPERATOR [employer]IL WELL CPT-J3420 Vitamin B12 1000mcg (Cyanocobalamin) 14:35:50 SERVICE UNIT OPERATOR [employer] WELL CPT-J3420 Vitamin B12 1000mcg (Cyanocobalamin) 09:25:05 SERVICE UNIT OPERATOR [employer] WELL CPT-98681 Abx/Therapy Injection 09:25:05 SERVICE UNIT OPERATOR [employer] WE[employer] CPT-G0008 Administration of Influenza Virus Vaccine 13:36:47 CDT CPT-48672 Fluzone High-Dose Intramuscular Suspension 11/15 13:36:47 CDT CPT-J0897 Prolia 60 mg 08:50:41 CDT CPT-14600 Abx/Therapy Injection 08:50:41 CDT CPT-57281 Bone Density 12:06:12 CDT CPT-08021 Bone Density 08:54:40 CDT CPT-OV Office Visit 15:37:02 CDT CPT-19512 Postop F/U Visit 15:47:49 CDT CPT-34030 Postop F/U Visit 15:21:02 CDT CPT-[facility] Transitional Care Mgmt-High 07:52:27 CDT 20 20/06/01 CPT-86927 Venipuncture Draw Fee 13:51:18 CDT CPT-41122 Venipuncture Draw Fee 10:14:55 SERVICE UNIT OPERATOR [employer] CPT-00480 Venipuncture Draw Fee 13:39:45 SERVICE UNIT OPERATOR [employer] CPT-OV Office Visit 15:11:22 SERVICE UNIT OPERATOR [employer] WE[employer] CPT-92748 Venipuncture Draw Fee 09:20:49 SERVICE UNIT OPERATOR [employer] WE[employer] CPT-89521 Venipuncture Draw Fee 16:52:15 SERVICE UNIT OPERATOR [employer] WELL CPT-57775 Venipuncture Draw Fee 10:37:24 SERVICE UNIT OPERATOR [employer] WE[employer] CPT-07989 Venipuncture Draw Fee 08:21:21 SERVICE UNIT OPERATOR [employer] WE[employer] CPT-43399 Venipuncture Draw Fee 08:30:20 SERVICE UNIT OPERATOR [employer]IL WELL CPT-22959 Venipuncture Draw Fee 14:53:21 SERVICE UNIT OPERATOR [employer]IL WELL CPT-45423 Venipuncture Draw Fee 09:40:56 SERVICE UNIT OPERATOR OIL WELL CPT-23019 Venipuncture Draw Fee 10:30:47 SERVICE UNIT OPERATOR [employer]IL WELL CPT-91086 Venipuncture Draw Fee 10:46:17 SERVICE UNIT OPERATOR [employer]IL WELL CPT-74294 Venipuncture Draw Fee 11:12:45 SERVICE UNIT OPERATOR [employer]IL WE[employer] CPT-49727 Venipuncture Draw Fee 09:53:33 SERVICE UNIT OPERATOR [employer]IL WE[employer] CPT-28869 Venipuncture Draw Fee 11:53:51 SERVICE UNIT OPERATOR [employer]IL WELL CPT-65472 Venipuncture Draw Fee 10:33:50 SERVICE UNIT OPERATOR [employer]IL WELL CPT-82965 Venipuncture Draw Fee 10:05:01 SERVICE UNIT OPERATOR [employer] WELL CPT-58203 Venipuncture Draw Fee 14:32:52 SERVICE UNIT OPERATOR [employer]IL WELL CPT-52102 Venipuncture Draw Fee 09:46:13 SERVICE UNIT OPERATOR [employer] WE[employer] CPT-46360 Venipuncture Draw Fee 11:34:27 SERVICE UNIT OPERATOR [employer] WE[employer] CPT-62440 Venipuncture Draw Fee 13:17:16 SERVICE UNIT OPERATOR [employer] CPT-27232 Venipuncture Draw Fee 12:05:39 CDT CPT-21900 Venipuncture Draw Fee 12:49:12 CDT CPT-20011 Venipuncture Draw Fee 12:37:18 CDT CPT-06884 Venipuncture Draw Fee 10:57:11 CDT CPT-04230 Venipuncture Draw Fee 13:47:40 CDT CPT-14087 Venipuncture Draw Fee 10:02:17 CDT CPT-34339 TB Tubersol 17:32:32 CDT CPT-OV Office Visit 16:21:53 CDT CPT-OV Office Visit 15:49:22 CDT CPT-OV Office Visit 17:16:31 CDT CPT-OV Office Visit 10:43:31 CDT
--- OUTSIDE RECORDS SUMMARY | 2019-02-09 11:53 | XMS REPORT | Clinical Summary ---
Author Author Admin, Florecita Munoz Organization [facility] [employer] Address Unknown Phone Unavailable Allergies, Adverse Reactions, [...] Sebaceous cyst, scalp 706.2 Resolved Kylie Yokum TOPOLOGY PROFESSOR Sebaceous cyst Cervical lymphadenopathy, anterior, left 785.6 Resolv ed Kylie Yokum TOPOLOGY PROFESSOR Enlargement of lymph nodes Need for prophylactic vaccination and inoculation against in fluenza V04.81 Resolved Adam Yates MD Need for prophylactic vaccination and inoculation against influenza Preventive health care V70.0 Resolved Kylie Lundu m TOPOLOGY PROFESSOR Routine general medical examination at a health care facility Thyroid nodule, left 241.0 Resolved Selena Yates MD Nontoxic uninodular goiter Screening mammogram V76.12 Resolved Kylie Yokum A PRN Other screening mammogram Mandy 706.2 Resolved Kylie Yokum TOPOLOGY PROFESSOR Sebaceous cyst Colon cancer, ascending 153.6 Resolved Kylie Yok um TOPOLOGY PROFESSOR Malignant neoplasm of ascending colon Foot pain, left 729.5 Resolved Kylie Yokum TOPOLOGY PROFESSOR Pain in limb Splinter 919.6 Resolved Kylie Yokum TOPOLOGY PROFESSOR Superficial foreign body (splinter) of other, multiple, and unspecified sites, without major open wound and without mention of infection Rash 782.1 Resolved Kylie Yokum TOPOLOGY PROFESSOR Rash and other nonspecific skin eruption Cyst 706.2 Resolved Kylie Yokum TOPOLOGY PROFESSOR Sebaceous cyst Body Mass Index 23.0-23.9 Adult Refinement 2017 Kylie Yokum TOPOLOGY PROFESSOR Body Mass Index between 19-24, adult BMI [...] MD PhD GERD ICD-530.81 Inactive Kylie Holt TOPOLOGY PROFESSOR 2015 Health maintenance exam ICD-V70.0 Inactive Adolfo Yates MD Anemia ICD-285.9 Inactive Kylie Holt TOPOLOGY PROFESSOR 07/24 Hypomagnesemia ICD-275.2 Inactive Kylie Holt TOPOLOGY PROFESSOR Weakness ICD-780.79 Inactive Hope Benaivdez MD P hD Aftercare following surgery of [...] cyst, scalp ICD-706.2 Inactive Tracy hi Yokum TOPOLOGY PROFESSOR Cervical lymphadenopathy, anterior, left ICD-785.6 Inactive Kylie Yokum TOPOLOGY PROFESSOR Need for prophylactic vaccination and inoculation against in fluenza ICD-V04.81 Inactive Adam Yates MD Preventive health care ICD-V70.0 Inactive Ka thi Yokum TOPOLOGY PROFESSOR Thyroid nodule, left ICD-241.0 Inactive Selena Yates MD Screening mammogram ICD-V76.12 Inactive Kylie Yokum TOPOLOGY PROFESSOR Mandy ICD-706.2 Inactive Kylie Yokum TOPOLOGY PROFESSOR 07/20 Colon cancer, ascending ICD-153.6 Inactive K athi Yokum TOPOLOGY PROFESSOR Foot pain, left ICD-729.5 Inactive Kylie Yokum TOPOLOGY PROFESSOR Splinter ICD-919.6 Inactive Kylie Yokum TOPOLOGY PROFESSOR 2017 Rash ICD-782.1 Inactive Kylie Yokum TOPOLOGY PROFESSOR 07/25 Cyst ICD-706.2 Inactive Kylie Yokum TOPOLOGY PROFESSOR 08/11 Unspecified fall, initial encounter ICD-E888.9 Inactive Kylie Yokum TOPOLOGY PROFESSOR Eye pain, left ICD-379.91 Inactive Kylie Yokum TOPOLOGY PROFESSOR Pharyngitis, acute ICD-074.0 Inactive Kavin Yates MD [...] arm as needed for pain DICLOFENAC SODIUM [id number] Active Kylie Holt APR N Active IMODIUM A-D 2 MG ORAL TABLET 1 tablet twice a day LOPERAMIDE HCL 77705824061 Active Kylie Holt APRN Active COQ10 100 MG ORAL CAPSULE 1 daily COENZYME Q10 198338 41871 Active Fay Alberts [facility] Active VITAMIN D3 2000 UNIT ORAL CAPSULE Melaleuca-One daily CHOLECALCIFEROL 93758260176 Active Kylie Holt APRN Active PROBIOTIC DAILY ORAL CAPSULE Take one daily PROBIO TIC PRODUCT 87393639162 Active Kylie Holt APRN Active IRON 325 (65 Fe) MG ORAL TABLET 1 every other day FERROUS SULFATE 10553610600 No Longer Active Kylie Holt APRN Active FLORANEX ORAL PACKET 1 pack three times daily, for bowel health LACTOBACILLUS 32310820507 No Longer Active Kylie Holt APRN Active LOMOTIL 2.5-0.025 MG ORAL TABLET 1 tab by mouth prn 23/10/23 DIPHENOXYLATE-ATROPINE 06329933706 No Longer Active Kylie Lundum AMY Active MAGNESIUM GLUCONATE 250 MG ORAL TABLET 1 tab tid 23/10/23 MAGNESIUM GLUCONATE 74687598479 No Longer Active Kylie Holt APRN Active CYANOCOBALAMIN 1000 MCG/ML INJECTION SOLUTION 1 injection ev ruben 2 weeks CYANOCOBALAMIN 46103660233 No Longer Active Kylie Lund um TOPOLOGY PROFESSOR Active ATENOLOL 25 MG ORAL TABLET 1/2 pill by mouth daily, fo r headaches, blood pressure ATENOLOL 69449526556 Active Kylie Holt TOPOLOGY PROFESSOR Active PROPRANOLOL HCL 80 MG ORAL TABLET 1 tab tue. and thur. PROPRANOLOL HCL 86301664735 No Longer Active Hope Benavidez MD PhD A ctive VITAMIN D3 4000 IU 1 tab 3 times daily VITAMIN D3 4000 IU No Longer Active Hope Benavidez MD PhD Active BACTRIM DS 800-160 MG ORAL TABLET 1 pill by mouth twice claudio y, for UTI SULFAMETHOXAZOLE-TRIMETHOPRIM 65497342658 No Longer Active Hope Benavidez MD PhD Active PROLIA 60 MG/ML SUBCUTANEOUS SOLUTION 1 shot every 6 months for osteoprosis DENOSUMAB 85280558064 Active Hope Benavidez MD PhD Active CALCIUM + D + K 750-500-40 MG-UNT-MCG ORAL TABLET 1 tab by m [facility] twice daily CALCIUM-VITAMIN D-VITAMIN K 43094746955 Active Hope valdez MD PhD Active DAILY VALUE MULTIVITAMIN ORAL TABLET 1 tab by mouth twice daily 201 05/16/14 MULTIPLE VITAMIN 74434325675 Active Hope Benavidez MD PhD Acti ve FISH OIL 306 MG CAPS 1 tab by mouth three times daily OMEGA-3 FATTY ACIDS 96197665914 Active Hope Benavidez MD PhD Active LUTEIN 10 MG ORAL TABLET 1 tab daily LUTEIN 70390692 408 Active Hope Benavidez MD PhD Active TRIAMTERENE-HCTZ 37.5-25 MG ORAL TABLET 1 tab by mouth daily 10/22 TRIAMTERENE-HCTZ 34848358576 Active Kylieshubham Lundoliver TOPOLOGY PROFESSOR Active CYCLOBENZAPRINE HCL 10 MG ORAL TABLET 1 tablet by mout h three times daily as needed for headaches CYCLOBENZAPRINE HCL 70768268266 No Longer Active Adam Yates MD Active OMEPRAZOLE 20 MG ORAL CAPSULE DELAYED RELEASE 1 tablet by mo [facility] daily for GERD OMEPRAZOLE 33625036119 No Longer Active Adam Yates MD Active ZOFRAN 8 MG ORAL TABLET 1 tab by mouth every 12 hours prn 4 ONDANSETRON HCL 37756990775 No Longer Active Adam Yates MD Active PHENADOZ 25 MG RECTAL SUPPOSITORY 1 every 4 hrs. PRN 2 PROMETHAZINE HCL 52246337625 No Longer Active Adam Yates MD A ctive POTASSIUM CHLORIDE 20 MEQ ORAL PACKET by mouth twice a day prn 2 POTASSIUM CHLORIDE 75955186251 No Longer Active Adam Crapenter MD Active PROMETHAZINE HCL 25 MG ORAL TABLET 1 Q. 4 hr. PRN PROMETHAZINE HCL 26462592237 No Longer Active Adam Yates MD Active INNOPRAN XL 120 MG ORAL CAPSULE EXTENDED RELEASE 24 HO UR Take one by mouth daily PROPRANOLOL HCL SR BEADS 32492539904 No Longer Active Adam Yates MD Active FLAGYL 500 MG ORAL TABLET 1 pill by mouth three times daily, for diarrhea METRONIDAZOLE 19424355061 No Longer Active Hope landers MD PhD Active DYAZIDE 37.5-25 MG ORAL CAPSULE 1 qd TRIA MTERENE-HCTZ 42385228109 No Longer Active Hope Benavidez MD PhD Active PROZAC 20 MG ORAL CAPSULE 1 q d FLUOXETINE HCL 23233613955 No Longer Active Hope Benavidez MD PhD Active SIMVASTATIN 40 MG ORAL TABLET 1 qd SIMVAS TATIN 90946549264 No Longer Active Adam Yates MD Active MELOXICAM 15 MG ORAL TABLET 1 qd MELOXICAM 35411880390 No Longer Active Adam Yates MD Active EXCEDRIN EXTRA STRENGTH 250-250-65 MG ORAL TABLET 1-2 q6h OR N headache [id number] 90648880147 Active Hope Benavidez MD PhD Active FLAGYL 500 MG ORAL TABLET 1 qid METRONIDAZOL E 02721852482 No Longer Active Adam Yates MD Active LEVAQUIN 750 MG ORAL TABLET 1 qd LEVOFLOXAC IN 92225222721 No Longer Active Adam Yates MD Active ADULT ASPIRIN LOW STRENGTH 81 MG ORAL TABLET DISINTEGRATING 1 qd ASPIRIN 68508908586 Active Hope Benavidez MD PhD Active LEVAQUIN 750 MG ORAL TABLET 1 qd LEVAQUIN 750 MG ORAL TABLET 507900 LEVOFLOXACIN Inactive FLAGYL 500 MG ORAL TABLET 1 qid FLAGYL 500 MG ORAL TABLET 770944 METRONIDAZOLE Inactive MELOXICAM 15 MG ORAL TABLET 1 qd MELOXICAM 15 MG ORAL TABLET 386664 MELOXICAM Inactive SIMVASTATIN 40 MG ORAL TABLET 1 qd SIMVASTATIN 40 MG ORAL TABLET 693499 SIMVASTATIN Inactive PROZAC 20 MG ORAL CAPSULE 1 q d PROZAC 20 MG ORAL CAPSULE 596601 FLUOXETINE HCL Inactive DYAZIDE 37.5-25 MG ORAL CAPSULE 1 qd 5 DYAZIDE 37.5-25 MG ORAL CAPSULE 636045 TRIAMTERENE-HCTZ Inactive INNOPRAN XL 120 MG ORAL CAPSULE EXTENDED RELEASE 24 HO UR Take one by mouth daily INNOPRAN XL 120 MG ORAL CAPSULE EXTENDED RELEASE 24 HOUR PROPRANOLOL HCL SR BEADS Inactive PROMETHAZINE HCL 25 MG ORAL TABLET 1 Q. 4 hr. PRN 2013 PROMETHAZINE HCL 25 MG ORAL TABLET 171222 PROMETHAZINE HCL Inactive POTASSIUM CHLORIDE 20 MEQ ORAL PACKET by mouth twice a day prn 2 POTASSIUM CHLORIDE 20 MEQ ORAL PACKET 0800010 POTASSIUM CHLORIDE Inactive PHENADOZ 25 MG RECTAL SUPPOSITORY 1 every 4 hrs. PRN PHENADOZ 25 MG RECTAL SUPPOSITORY 897030 PROMETHAZINE HCL Inactive ZOFRAN 8 MG ORAL TABLET 1 tab by mouth every 12 hours prn 4 ZOFRAN 8 MG ORAL TABLET 963630 ONDANSETRON HCL Inactive OMEPRAZOLE 20 MG ORAL CAPSULE DELAYED RELEASE 1 tablet by mo uth daily for GERD OMEPRAZOLE 20 MG ORAL CAPSULE DELAYED RELEASE 19 8051 OMEPRAZOLE Inactive CYCLOBENZAPRINE HCL 10 MG ORAL TABLET 1 tablet by mout h three times daily as needed for headaches CYCLOBENZAPRINE HCL 10 MG ORAL TABLET 024491 CYCLOBENZAPRINE HCL Inactive VITAMIN D3 4000 IU 1 tab 3 times daily VITAMIN D3 4000 IU Inactive PROPRANOLOL HCL 80 MG ORAL TABLET 1 tab tue. and thur. PROPRANOLOL HCL 80 MG ORAL TABLET 650716 PROPRANOLOL HCL Inacti ve CYANOCOBALAMIN 1000 MCG/ML INJECTION SOLUTION 1 injection ev ruben 2 weeks CYANOCOBALAMIN 1000 MCG/ML INJECTION SOLUTION 30 9594 CYANOCOBALAMIN Inactive MAGNESIUM GLUCONATE 250 MG ORAL TABLET 1 tab tid 23/10/23 MAGNESIUM GLUCONATE 250 MG ORAL TABLET 858146 MAGNESIUM GLUCONATE Inactive LOMOTIL 2.5-0.025 MG ORAL TABLET 1 tab by mouth prn 23/10/23 LOMOTIL 2.5-0.025 MG ORAL TABLET 5513566 DIPHENOXYLATE-ATROPINE Inac tive FLORANEX ORAL PACKET 1 pack three times daily, for bowel health FLORANEX ORAL PACKET 67119806839 LACTOBACILLUS Inactive IRON 325 (65 Fe) MG ORAL TABLET 1 every other day 2015 IRON 325 (65 Fe) MG ORAL TABLET 887685 FERROUS SULFATE Inactive FLAGYL 500 MG ORAL TABLET 1 pill by mouth three times daily, for diarrhea FLAGYL 500 MG ORAL TABLET 454991 METRONIDAZOLE I nactive BACTRIM DS 800-160 MG ORAL TABLET 1 pill by mouth twice claudio y, for UTI BACTRIM DS 800-160 MG ORAL TABLET 131500 SULFAMETHOXAZOLE-TRIMETHOPRIM Inactive Advance Directives Directive Description Start [...] ... - Chemistry sodium, serum 141 mmol/L 383-337 5789/01/10 potassium, serum 3.7 mmol/L 3.5-5.2 chloride, serum 101 mmol/L 98-107 carbon dioxide, venous blood 31.0 mmol/L 21.0-32 .0 blood glucose 96 mg/dL 65-95 calcium, serum 9.5 mg/dL 8.5-10.1 urea nitrogen, blood 21 mg/dL 7-18 creatinine, serum 1.40 mg/dL 0.60-1.30 Estimated Glomerular Filtration Rate (calc) 39 (?) mL/min/1.73m2 = OR > 60 mL/min cholesterol, serum 211 mg/dL 019-604 2352/01/10 triglyceride, serum, fasting 77 mg/dL 30-200 HDL [...] ... - Chemistry sodium, serum 142 mmol/L 270-960 2694/04/16 carbon dioxide, venous blood 30.0 mmol/L 21.0-32 [...] - Chelle radha sodium, serum 142 mmol/L 003-357 4490/11/02 potassium, serum 3.4 mmol/L 3.5-5.2 chloride, serum [...] mg/dL Encounters Code Encounter Date Provider Facility CPT-89727 Level 4 Est. Patient 15:35:24 STILL CLEANER Adam Yates MD [facility] CPT-02439 Level 3 New Patient 12:08:54 STILL CLEANER Adam Yates MD [facility] CPT-03662 [id number] Vst-Est Level IV 19:48:30 STILL CLEANER Tracy Holt [facility] [place] CPT-04825 [id number] Vst-Est Level III 14:29:19 CDT Fiorella Holt [facility] [place] CPT-44616 Level 2 Est. Patient 14:58:26 CDT Kylie Kevon oliver [facility] [place] CPT-73919 Level 3 Est. Patient 08:15:24 STILL CLEANER Kylie Escalonagabbi oliver [facility] [place] CPT-48257 Level 2 Est. Patient 14:27:16 STILL CLEANER Kylie Polagabbi oliver [facility] [place] CPT-83251 Level 3 Est. Patient 17:54:48 CDT Kylie Lund oliver [facility] [place] CPT-05023 Level 3 Est. Patient 16:26:30 CDT Kinachrista blackmon [facility] CPT-72792 Level 3 New Patient 16:22:01 STILL CLEANER Adam Yates MD [facility] CPT-17719 Level 4 Est. Patient 17:00:48 CDT Kylie boyd [facility] [place] CPT-69109 Level 3 Est. Patient 13:15:54 CDT Kylie boyd [facility] CPT-59460 Level 3 Est. Patient 09:10:11 CDT Kylie boyd [facility] CPT-18701 Level 4 Est. Patient 12:08:30 STILL CLEANER Hope cohn MD PhD [facility] CPT-29727 Level 4 Est. Patient 19:08:42 STILL CLEANER Hope cohn MD PhD [facility] CPT-22974 Level 4 Est. Patient 20:04:51 CDT Hope cohn MD [facility] CPT-66201 Level 3 New Patient 01:46:11 STILL CLEANER Hope landers MD PhD [facility] Procedures Code Procedure Name Date Entry Date Standard Desc ription CPT-05760 Postop F/U Visit 15:45:41 CDT CPT-59024 Sono Soft Tissue Head and Neck - XRAY US E ONLY 11:56:06 STILL CLEANER CPT-65892 Abx/Therapy Injection 09:40:08 STILL CLEANER CPT-J0897 Prolia 60 mg 09:40:08 STILL CLEANER CPT-26916 First Vx - Ix admin for Medicare patients 02/08 10:02:45 CDT CPT-90357 Fluzone Quadrivalent Intramuscular Suspe nsion 0.5 ML 10:02:45 CDT CPT-47768 Magnesium - LAB USE ONLY 09:41:00 CDT 12/09 CPT-41232 Renal Panel - LAB USE ONLY 09:41:00 CDT 201 09/17/01 CPT-04700 Venipuncture Draw Fee 09:41:00 CDT CPT-78705 Calcium - LAB USE ONLY 17:25:11 CDT CPT-J0897 Prolia 60 mg 15:10:59 CDT CPT-73829 Abx/Therapy Injection 15:10:59 CDT CPT-G0439 Subsequent Annual Wellness Exam 14:29:19 CDT CPT-29525 Venipuncture Draw Fee 10:59:04 CDT CPT-39263 CMP - LAB USE ONLY 10:59:04 CDT CPT-01110 CBC with Diff - LAB USE ONLY 10:59:03 CDT 2 CPT-J0897 Prolia 60 mg 15:46:54 STILL CLEANER CPT-74911 Abx/Therapy Injection 15:46:54 STILL CLEANER CPT-65232 Microalbumin - LAB USE ONLY 09:41:32 STILL CLEANER 20 23/01/15 CPT-61352 Free T4 - LAB USE ONLY 09:41:32 STILL CLEANER CPT-81034 TSH - LAB USE ONLY 09:41:32 STILL CLEANER CPT-92257 BMP - LAB USE ONLY 09:41:32 STILL CLEANER CPT-43597 Venipuncture Draw Fee 09:41:32 STILL CLEANER CPT-47067 First Vx - Ix admin for Medicare patients 11:19:30 CDT CPT-19915 Fluzone High-Dose Intramuscular Suspension 12/07 11:19:30 CDT CPT-J0897 Prolia 60 mg 14:55:42 CDT CPT-18694 Abx/Therapy Injection 14:55:42 CDT CPT-25369 Bone Density - XRAY USE ONLY 10:27:12 CDT 2 CPT-G0439 Subsequent Annual Wellness Exam 17:54:53 CDT CPT-85375 Foot, left, comp min 3V - XRAY USE ONLY 12:22:49 CDT CPT-G0009 Administration of Pneumococcal Vaccine 3 12:18:00 CDT CPT-19557 Pneumovax 23 Injection Injectable 25 MCG /0.5ML 12:18:00 CDT CPT-J0897 Prolia 60 mg 14:14:16 STILL CLEANER CPT-50460 Abx/Therapy Injection 14:14:15 STILL CLEANER CPT-81249 Lipid - LAB USE ONLY 10:01:52 STILL CLEANER 2 CPT-41883 Calcium - LAB USE ONLY 10:01:51 STILL CLEANER CPT-35861 Venipuncture Draw Fee 10:01:51 STILL CLEANER CPT-LR Lesion Removal 16:22:01 STILL CLEANER CPT-33771 TSH - LAB USE ONLY 14:26:02 CDT CPT-27711 CMP - LAB USE ONLY 14:26:01 CDT CPT-67873 CBC with Diff - LAB USE ONLY 14:26:01 CDT 2 CPT-12684 Venipuncture Draw Fee 14:26:01 CDT CPT-12385 First Vx - Ix admin for Medicare patients 13:27:08 CDT CPT-00273 Fluzone High-Dose Intramuscular Suspension 11/26 13:27:08 CDT CPT-G0438 Initial Annual Wellness Exam 14:19:57 CD T CPT-G0009 Administration of Pneumococcal Vaccine 9 11:36:25 CDT CPT-51295 Prevnar 13 Intramuscular Suspension 1 1:36:25 CDT CPT-95613 Prevnar 13 Intramuscular Suspension 1 0:40:58 CDT CPT-J0897 Prolia 60 mg 10:37:16 CDT CPT-09409 Abx/Therapy Injection 10:37:16 CDT CPT-J0897 Prolia 60 mg 16:09:34 STILL CLEANER CPT-J0897 Prolia 60 mg 11:10:35 STILL CLEANER CPT-55472 Abx/Therapy Injection 11:10:35 STILL CLEANER CPT-000 Give Appropriate Flu Vaccine 17:01:15 STILL CLEANER 2 CPT-81770 Fluzone High Dose (65+) 15:03:08 STILL CLEANER 02/15 CPT-56015 Immunization Single Admin 15:03:08 STILL CLEANER 2014 CPT-OV Office Visit 15:58:06 CDT CPT-J0897 Prolia 60 mg 08:45:38 CDT CPT-03328 Abx/Therapy Injection 08:45:38 CDT CPT-J3420 Vitamin B12 1000mcg (Cyanocobalamin) 09:26:20 STILL CLEANER CPT-36141 Abx/Therapy Injection 09:26:20 STILL CLEANER CPT-J3420 Vitamin B12 1000mcg (Cyanocobalamin) 09:44:40 STILL CLEANER CPT-30489 Abx/Therapy Injection 09:44:40 STILL CLEANER CPT-J3420 Vitamin B12 1000mcg (Cyanocobalamin) 09:15:54 STILL CLEANER CPT-65693 Abx/Therapy Injection 09:15:54 STILL CLEANER CPT-J3420 Vitamin B12 1000mcg (Cyanocobalamin) 09:46:44 STILL CLEANER CPT-82016 Abx/Therapy Injection 09:46:44 STILL CLEANER CPT-J3420 Vitamin B12 1000mcg (Cyanocobalamin) 09:47:34 STILL CLEANER CPT-06306 Abx/Therapy Injection 09:47:34 STILL CLEANER CPT-J3420 Vitamin B12 1000mcg (Cyanocobalamin) 14:35:50 STILL CLEANER CPT-J3420 Vitamin B12 1000mcg (Cyanocobalamin) 09:25:05 STILL CLEANER CPT-27318 Abx/Therapy Injection 09:25:05 STILL CLEANER CPT-G0008 Administration of Influenza Virus Vaccine 13:36:47 CDT CPT-96521 Fluzone High-Dose Intramuscular Suspension 11/15 13:36:47 CDT CPT-J0897 Prolia 60 mg 08:50:41 CDT CPT-11468 Abx/Therapy Injection 08:50:41 CDT CPT-62491 Bone Density 12:06:12 CDT CPT-04310 Bone Density 08:54:40 CDT CPT-OV Office Visit 15:37:02 CDT CPT-68352 Postop F/U Visit 15:47:49 CDT CPT-71861 Postop F/U Visit 15:21:02 CDT [facility] Transitional Care Mgmt-High 07:52:27 CDT 20 20/06/01 CPT-51674 Venipuncture Draw Fee 13:51:18 CDT CPT-77844 Venipuncture Draw Fee 10:14:55 STILL CLEANER CPT-52796 Venipuncture Draw Fee 13:39:45 STILL CLEANER CPT-OV Office Visit 15:11:22 STILL CLEANER CPT-99704 Venipuncture Draw Fee 09:20:49 STILL CLEANER CPT-03060 Venipuncture Draw Fee 16:52:15 STILL CLEANER CPT-79694 Venipuncture Draw Fee 10:37:24 STILL CLEANER CPT-17153 Venipuncture Draw Fee 08:21:21 STILL CLEANER CPT-89281 Venipuncture Draw Fee 08:30:20 STILL CLEANER CPT-12783 Venipuncture Draw Fee 14:53:21 STILL CLEANER CPT-52571 Venipuncture Draw Fee 09:40:56 STILL CLEANER CPT-75921 Venipuncture Draw Fee 10:30:47 STILL CLEANER CPT-23950 Venipuncture Draw Fee 10:46:17 STILL CLEANER CPT-09022 Venipuncture Draw Fee 11:12:45 STILL CLEANER CPT-02856 Venipuncture Draw Fee 09:53:33 STILL CLEANER CPT-85832 Venipuncture Draw Fee 11:53:51 STILL CLEANER CPT-58291 Venipuncture Draw Fee 10:33:50 STILL CLEANER CPT-77796 Venipuncture Draw Fee 10:05:01 STILL CLEANER CPT-23362 Venipuncture Draw Fee 14:32:52 STILL CLEANER CPT-20518 Venipuncture Draw Fee 09:46:13 STILL CLEANER CPT-39841 Venipuncture Draw Fee 11:34:27 STILL CLEANER CPT-17481 Venipuncture Draw Fee 13:17:16 STILL CLEANER CPT-29949 Venipuncture Draw Fee 12:05:39 CDT CPT-72366 Venipuncture Draw Fee 12:49:12 CDT CPT-65957 Venipuncture Draw Fee 12:37:18 CDT CPT-20296 Venipuncture Draw Fee 10:57:11 CDT CPT-72463 Venipuncture Draw Fee 13:47:40 CDT CPT-97544 Venipuncture Draw Fee 10:02:17 CDT CPT-14568 TB Tubersol 17:32:32 CDT CPT-OV Office Visit 16:21:53 CDT CPT-OV Office Visit 15:49:22 CDT CPT-OV Office Visit 17:16:31 CDT CPT-OV Office Visit 10:43:31 CDT
--- OUTSIDE RECORDS SUMMARY | 2019-02-09 11:54 | XMS REPORT | Clinical Summary ---
Author Author Renaldo, Florecita Munoz Organization [facility] [employer] Address Unknown Phone Unavailable Allergies, Adverse Reactions, [...] PhD Hyperpotassemia GERD 530.81 Resolved Kylie Yokum [employer]OUNT [employer] Esophageal reflux Health maintenance exam V70.0 Resolved Adolfo Yates MD Routine general medical examination at a health care facility Anemia 285.9 Resolved Kylie Yanet [employer] Anemia, unspecified Personal history of malignant neoplasm of large intestine V10.05 Active Adam Yates MD Personal history of malignant neoplasm of large intestine Hypomagnesemia 275.2 Resolved Kylie Yanet [employer]OUNT LO[employer]ER Disorders of magnesium metabolism Weakness 780.79 Resolved [...] Sebaceous cyst, scalp 706.2 Resolved Kylie Yokum MOUNT LO[employer]ER Sebaceous cyst Cervical lymphadenopathy, anterior, left 785.6 Resolv ed Kylie Yokum [employer] Enlargement of lymph nodes Need for prophylactic vaccination and inoculation against in fluenza V04.81 Resolved Adam Yates MD Need for prophylactic vaccination and inoculation against influenza Preventive health care V70.0 Resolved Kylie Lundu m [employer] Routine general medical examination at a health care facility Thyroid nodule, left 241.0 Resolved Selena Yates MD Nontoxic uninodular goiter Screening mammogram V76.12 Resolved Kylie Yokum A PRN Other screening mammogram Mandy 706.2 Resolved Kylie Yokum [employer] Sebaceous cyst Colon cancer, ascending 153.6 Resolved Kylie Yok um [employer] LO[employer]ER Malignant neoplasm of ascending colon Foot pain, left 729.5 Resolved Kylie Yokum [employer]OUNT LO[employer]ER Pain in limb Splinter 919.6 Resolved Kylie Yokum [employer]ER Superficial foreign body (splinter) of other, multiple, and unspecified sites, without major open wound and without mention of infection Rash 782.1 Resolved Kylie Yokum [employer] LO[employer]ER Rash and other nonspecific skin eruption Cyst 706.2 Resolved Kylie Yokum [employer] LO[employer]ER Sebaceous cyst Body Mass Index 23.0-23.9 Adult Refinement 2017 Kylie Yokum MOUNT LO[employer]ER Body Mass Index between 19-24, adult BMI [...] cohn MD PhD UNSPECIFIED VENOUS INSUFFICIENCY ICD-459.81 Chana ctive Adam Yates MD ADENOCARCINOMA, 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 Inac tive Hope Benavidez MD PhD Hyperkalemia ICD-276.7 Inactive Hope Benavidez MD PhD GERD ICD-530.81 Inactive Kylie Holt [employer] 2015 Health maintenance exam ICD-V70.0 Bam Yates MD Anemia ICD-285.9 Inactive Kylie Holt [employer] 07/24 Hypomagnesemia ICD-275.2 Inactive Kylie Holt [employer] Weakness ICD-780.79 Inactive Hope Benavidez MD P [...] cyst, scalp ICD-706.2 Inactive Tracy hi Yokum [employer] Cervical lymphadenopathy, anterior, left ICD-785.6 Inactive Kylie Yokum [employer] Need for prophylactic vaccination and inoculation against in fluenza ICD-V04.81 Inactive Adam Yates MD Preventive health care ICD-V70.0 Inactive Ka thi Yokum M[employer]ER Thyroid nodule, left ICD-241.0 Inactive Selena Yates MD Screening mammogram ICD-V76.12 Inactive Kylie Yokum [employer] Mandy ICD-706.2 Inactive Kylie Yokum M[employer]ER 07/20 Colon cancer, ascending ICD-153.6 Inactive K athi Yokum M[employer] LO[employer]ER Foot pain, left ICD-729.5 Inactive Kylie Yokum [employer] Splinter ICD-919.6 Inactive Kylie Yokum [employer] LO[employer]ER 2017 Rash ICD-782.1 Inactive Kylie Yokum M[employer] 07/25 Cyst ICD-706.2 Inactive Kylie Yokum [employer] LO[employer] 08/11 Unspecified fall, initial encounter ICD-E888.9 Inactive Kylie Yokum [employer] Eye pain, left ICD-379.91 Inactive Kylie Yokum [employer] LO[employer] Pharyngitis, acute ICD-074.0 Inactive Kavin Yates MD [...] arm as needed for pain DICLOFENAC SODIUM 14490042633 Active Kylie Holt APR N Active IMODIUM A-D 2 MG ORAL TABLET 1 tablet twice a day LOPERAMIDE HCL 80296408693 Active Kylie Holt APRN Active COQ10 100 MG ORAL CAPSULE 1 daily COENZYME Q10 240211 70797 Active Fay Alberts [facility] Active VITAMIN D3 2000 UNIT ORAL CAPSULE Melaleuca-One daily CHOLECALCIFEROL 60207322302 Active Kylie Holt APRN Active PROBIOTIC DAILY ORAL CAPSULE Take one daily PROBIO TIC PRODUCT 53934996567 Active Kylie Lundum AMY Active IRON 325 (65 Fe) MG ORAL TABLET 1 every other day FERROUS SULFATE 18150456566 No Longer Active Kylie Lundum AMY Active FLORANEX ORAL PACKET 1 pack three times daily, for bowel health LACTOBACILLUS 40816714210 No Longer Active Kylie Lundum AMY Active LOMOTIL 2.5-0.025 MG ORAL TABLET 1 tab by mouth prn 23/10/23 DIPHENOXYLATE-ATROPINE 11742940620 No Longer Active Kylie Lundum [employer] Active MAGNESIUM GLUCONATE 250 MG ORAL TABLET 1 tab tid 23/10/23 MAGNESIUM GLUCONATE 40261827729 No Longer Active Kylie Lundum [employer] Active CYANOCOBALAMIN 1000 MCG/ML INJECTION SOLUTION 1 injection ev ruben 2 weeks CYANOCOBALAMIN 40854481013 No Longer Active Kylie boyd [employer] Active ATENOLOL 25 MG ORAL TABLET 1/2 pill by mouth daily, fo r headaches, blood pressure ATENOLOL 56361550329 Active Kylie Holt [employer] Active PROPRANOLOL HCL 80 MG ORAL TABLET 1 tab tue. and thur. PROPRANOLOL HCL 95505303568 No Longer Active Hope Benavidez MD PhD A ctive VITAMIN D3 4000 IU 1 tab 3 times daily VITAMIN D3 4000 IU No Longer Active Hope Benavidez MD PhD Active BACTRIM DS 800-160 MG ORAL TABLET 1 pill by mouth twice claudio y, for UTI SULFAMETHOXAZOLE-TRIMETHOPRIM 27854208057 No Longer Active Hope Benavidez MD PhD Active PROLIA 60 MG/ML SUBCUTANEOUS SOLUTION 1 shot every 6 months for osteoprosis DENOSUMAB 88082946984 Active Hope Benavidez MD PhD Active CALCIUM + D + K 750-500-40 MG-UNT-MCG ORAL TABLET 1 tab by m out twice daily CALCIUM-VITAMIN D-VITAMIN K 94520503625 Active Hope valdez MD PhD Active DAILY VALUE MULTIVITAMIN ORAL TABLET 1 tab by mouth twice daily 201 05/16/14 MULTIPLE VITAMIN 42048969921 Active Hope Benavidez MD PhD Acti ve FISH OIL 306 MG CAPS 1 tab by mouth three times daily OMEGA-3 FATTY ACIDS 84153403179 Active Hope Benavidez MD PhD Active LUTEIN 10 MG ORAL TABLET 1 tab daily LUTEIN 44973549 408 Active Hope Benavidez MD PhD Active TRIAMTERENE-HCTZ 37.5-25 MG ORAL TABLET 1 tab by mouth daily 10/22 TRIAMTERENE-HCTZ 66147317719 Active Kylieshubham Lundoliver [employer] LO[employer]ER Active CYCLOBENZAPRINE HCL 10 MG ORAL TABLET 1 tablet by mout h three times daily as needed for headaches CYCLOBENZAPRINE HCL 68332269379 No Longer Active Adam Yates MD Active OMEPRAZOLE 20 MG ORAL CAPSULE DELAYED RELEASE 1 tablet by mo uth daily for GERD OMEPRAZOLE 02780784807 No Longer Active Adam Yates MD Active ZOFRAN 8 MG ORAL TABLET 1 tab by mouth every 12 hours prn 4 ONDANSETRON HCL 21920984499 No Longer Active Adam Yates MD Active PHENADOZ 25 MG RECTAL SUPPOSITORY 1 every 4 hrs. PRN 2 PROMETHAZINE HCL 90394495727 No Longer Active Adam Yates MD A ctive POTASSIUM CHLORIDE 20 MEQ ORAL PACKET by mouth twice a day prn 2 POTASSIUM CHLORIDE 73824938759 No Longer Active Adam Carpenter MD Active PROMETHAZINE HCL 25 MG ORAL TABLET 1 Q. 4 hr. PRN PROMETHAZINE HCL 77483337047 No Longer Active Adam Yates MD Active INNOPRAN XL 120 MG ORAL CAPSULE EXTENDED RELEASE 24 HO UR Take one by mouth daily PROPRANOLOL HCL SR BEADS 14188855332 No Longer Active Adam Yates MD Active FLAGYL 500 MG ORAL TABLET 1 pill by mouth three times daily, for diarrhea METRONIDAZOLE 79303195198 No Longer Active Hope landers MD PhD Active DYAZIDE 37.5-25 MG ORAL CAPSULE 1 qd TRIA MTERENE-HCTZ 36766875346 No Longer Active Hope Benavidez MD PhD Active PROZAC 20 MG ORAL CAPSULE 1 q d FLUOXETINE HCL 78461227006 No Longer Active Hope Benavidez MD PhD Active SIMVASTATIN 40 MG ORAL TABLET 1 qd SIMVAS TATIN 59389432533 No Longer Active Adam Yates MD Active MELOXICAM 15 MG ORAL TABLET 1 qd MELOXICAM 36876762265 No Longer Active Adam Yates MD Active EXCEDRIN EXTRA STRENGTH 250-250-65 MG ORAL TABLET 1-2 q6h MN N headache [id number] 74181836780 Active Hope Benavidez MD PhD Active FLAGYL 500 MG ORAL TABLET 1 qid METRONIDAZOL E 82484534346 No Longer Active Adam Yates MD Active LEVAQUIN 750 MG ORAL TABLET 1 qd LEVOFLOXAC IN 65143141515 No Longer Active Adam Yates MD Active ADULT ASPIRIN LOW STRENGTH 81 MG ORAL TABLET DISINTEGRATING 1 qd ASPIRIN 21598915142 Active Hope Benavidez MD PhD Active LEVAQUIN 750 MG ORAL TABLET 1 qd LEVAQUIN 750 MG ORAL TABLET 601340 LEVOFLOXACIN Inactive FLAGYL 500 MG ORAL TABLET 1 qid FLAGYL 500 MG ORAL TABLET 787073 METRONIDAZOLE Inactive MELOXICAM 15 MG ORAL TABLET 1 qd MELOXICAM 15 MG ORAL TABLET 949073 MELOXICAM Inactive SIMVASTATIN 40 MG ORAL TABLET 1 qd SIMVASTATIN 40 MG ORAL TABLET 309267 SIMVASTATIN Inactive PROZAC 20 MG ORAL CAPSULE 1 q d PROZAC 20 MG ORAL CAPSULE 379102 FLUOXETINE HCL Inactive DYAZIDE 37.5-25 MG ORAL CAPSULE 1 qd 5 DYAZIDE 37.5-25 MG ORAL CAPSULE 056849 TRIAMTERENE-HCTZ Inactive INNOPRAN XL 120 MG ORAL CAPSULE EXTENDED RELEASE 24 HO UR Take one by mouth daily INNOPRAN XL 120 MG ORAL CAPSULE EXTENDED RELEASE 24 HOUR PROPRANOLOL HCL SR BEADS Inactive PROMETHAZINE HCL 25 MG ORAL TABLET 1 Q. 4 hr. PRN 2013 PROMETHAZINE HCL 25 MG ORAL TABLET 708377 PROMETHAZINE HCL Inactive POTASSIUM CHLORIDE 20 MEQ ORAL PACKET by mouth twice a day prn 2 POTASSIUM CHLORIDE 20 MEQ ORAL PACKET 6524567 POTASSIUM CHLORIDE Inactive PHENADOZ 25 MG RECTAL SUPPOSITORY 1 every 4 hrs. PRN 2 PHENADOZ 25 MG RECTAL SUPPOSITORY 026566 PROMETHAZINE HCL Inactive ZOFRAN 8 MG ORAL TABLET 1 tab by mouth every 12 hours prn 4 ZOFRAN 8 MG ORAL TABLET 578443 ONDANSETRON HCL Inactive OMEPRAZOLE 20 MG ORAL CAPSULE DELAYED RELEASE 1 tablet by [facility] daily for GERD OMEPRAZOLE 20 MG ORAL CAPSULE DELAYED RELEASE 19 8051 OMEPRAZOLE Inactive CYCLOBENZAPRINE HCL 10 MG ORAL TABLET 1 tablet by mout h three times daily as needed for headaches CYCLOBENZAPRINE HCL 10 MG ORAL TABLET 617454 CYCLOBENZAPRINE HCL Inactive VITAMIN D3 4000 IU 1 tab 3 times daily VITAMIN D3 4000 IU Inactive PROPRANOLOL HCL 80 MG ORAL TABLET 1 tab tue. and thur. PROPRANOLOL HCL 80 MG ORAL TABLET 036857 PROPRANOLOL HCL Inacti ve CYANOCOBALAMIN 1000 MCG/ML INJECTION SOLUTION 1 injection ev ruben 2 weeks CYANOCOBALAMIN 1000 MCG/ML INJECTION SOLUTION 30 9594 CYANOCOBALAMIN Inactive MAGNESIUM GLUCONATE 250 MG ORAL TABLET 1 tab tid 23/10/23 MAGNESIUM GLUCONATE 250 MG ORAL TABLET 106204 MAGNESIUM GLUCONATE Inactive LOMOTIL 2.5-0.025 MG ORAL TABLET 1 tab by mouth prn 23/10/23 LOMOTIL 2.5-0.025 MG ORAL TABLET 2026371 DIPHENOXYLATE-ATROPINE Inac tive FLORANEX ORAL PACKET 1 pack three times daily, for bowel health FLORANEX ORAL PACKET 03700165290 LACTOBACILLUS Inactive IRON 325 (65 Fe) MG ORAL TABLET 1 every other day 2015 IRON 325 (65 Fe) MG ORAL TABLET 909249 FERROUS SULFATE Inactive FLAGYL 500 MG ORAL TABLET 1 pill by mouth three times daily, for diarrhea FLAGYL 500 MG ORAL TABLET 648741 METRONIDAZOLE I nactive BACTRIM DS 800-160 MG ORAL TABLET 1 pill by mouth twice claudio y, for UTI BACTRIM DS 800-160 MG ORAL TABLET 342626 SULFAMETHOXAZOLE-TRIMETHOPRIM Inactive Advance Directives Directive Description Start [...] ... - Chemistry sodium, serum 141 mmol/L 739-573 5328/01/10 potassium, serum 3.7 mmol/L 3.5-5.2 chloride, serum 101 mmol/L 98-107 carbon dioxide, venous blood 31.0 mmol/L 21.0-32 .0 blood glucose 96 mg/dL 65-95 calcium, serum 9.5 mg/dL 8.5-10.1 urea nitrogen, blood 21 mg/dL 7-18 creatinine, serum 1.40 mg/dL 0.60-1.30 Estimated Glomerular Filtration Rate (calc) 39 (?) mL/min/1.73m2 = OR > 60 mL/min cholesterol, serum 211 mg/dL 272-409 8739/01/10 triglyceride, serum, fasting 77 mg/dL 30-200 HDL [...] ... - Chemistry sodium, serum 142 mmol/L 759-007 1343/04/16 carbon dioxide, venous blood 30.0 mmol/L 21.0-32 [...] - Chelle radha sodium, serum 142 mmol/L 525-673 9978/11/02 potassium, serum 3.4 mmol/L 3.5-5.2 chloride, serum [...] mg/dL Encounters Code Encounter Date Provider Facility CPT-13803 Level 4 Est. Patient 15:35:24 DROP HAMMER PILE DRIVER OPERATOR Adam Yates MD [facility] CPT-94536 Level 3 New Patient 12:08:54 DR[employer] HAMMER PILE DRIVER OPERATOR Adam Yates MD [facility] CPT-14316 [id number] Vst-Est Level IV 19:48:30 DROP HAMMER PILE DRIVER OPERATOR Tracy Holt [facility] [place] CPT-85653 [id number] Vst-Est Level III 14:29:19 CDT Fiorella Holt [facility] [place] [facility] [place] CPT-53442 Level 2 Est. Patient 14:58:26 CDT Kylie Escalonagabbi [facility] [place] CPT-30631 Level 3 Est. Patient 08:15:24 DROP HAMMER PILE DRIVER OPERATOR Kylie Lund [facility] [place] CPT-92277 Level 2 Est. Patient 14:27:16 DROP HAMMER PILE DRIVER OPERATOR Kylie Kevon boyd [facility] [place] CPT-05483 Level 3 Est. Patient 17:54:48 CDT Kylie Polagabbi oliver [facility] [place] [facility] [place] CPT-25684 Level 3 Est. Patient 16:26:30 CDT Kina blackmon [facility] [place] CPT-61875 Level 3 New Patient 16:22:01 DROP HAMMER PILE DRIVER OPERATOR Adam Yates MD [facility] CPT-00554 Level 4 Est. Patient 17:00:48 CDT Kylie boyd [facility] [place] CPT-22309 Level 3 Est. Patient 13:15:54 CDT Kylie Lund [facility] CPT-14030 Level 3 Est. Patient 09:10:11 CDT Kylie boyd [facility] CPT-59570 Level 4 Est. Patient 12:08:30 DROP HAMMER PILE DRIVER OPERATOR Hope cohn MD [facility] CPT-19405 Level 4 Est. Patient 19:08:42 DROP HAMMER PILE DRIVER OPERATOR Hope cohn MD [facility] CPT-66836 Level 4 Est. Patient 20:04:51 CDT Hope cohn MD [facility] CPT-49461 Level 3 New Patient 01:46:11 DROP HAMMER PILE DRIVER OPERATOR Hope landers MD [facility] Procedures Code Procedure Name Date Entry Date Standard Desc ription CPT-59386 Postop F/U Visit 15:45:41 CDT CPT-96095 Sono Soft Tissue Head and Neck - XRAY US E ONLY 11:56:06 DROP HAMMER PILE DRIVER OPERATOR CPT-01038 Abx/Therapy Injection 09:40:08 DROP HAMMER PILE DRIVER OPERATOR CPT-J0897 Prolia 60 mg 09:40:08 DROP HAMMER PILE DRIVER OPERATOR CPT-28768 First Vx - Ix admin for Medicare patients 02/08 10:02:45 CDT CPT-14891 Fluzone Quadrivalent Intramuscular Suspe nsion 0.5 ML 10:02:45 CDT CPT-19415 Magnesium - LAB USE ONLY 09:41:00 CDT 12/09 CPT-72388 Renal Panel - LAB USE ONLY 09:41:00 CDT 201 09/17/01 CPT-97639 Venipuncture Draw Fee 09:41:00 CDT CPT-98776 Calcium - LAB USE ONLY 17:25:11 CDT CPT-J0897 Prolia 60 mg 15:10:59 CDT CPT-11982 Abx/Therapy Injection 15:10:59 CDT CPT-G0439 Subsequent Annual Wellness Exam 14:29:19 CDT CPT-48428 Venipuncture Draw Fee 10:59:04 CDT CPT-59504 CMP - LAB USE ONLY 10:59:04 CDT CPT-11023 CBC with Diff - LAB USE ONLY 10:59:03 CDT 2 CPT-J0897 Prolia 60 mg 15:46:54 DROP HAMMER PILE DRIVER OPERATOR CPT-76700 Abx/Therapy Injection 15:46:54 DROP HAMMER PILE DRIVER OPERATOR CPT-51528 Microalbumin - LAB USE ONLY 09:41:32 DROP HAMMER PILE DRIVER OPERATOR 20 23/01/15 CPT-85969 Free T4 - LAB USE ONLY 09:41:32 DROP HAMMER PILE DRIVER OPERATOR CPT-22704 TSH - LAB USE ONLY 09:41:32 DROP HAMMER PILE DRIVER OPERATOR CPT-87990 BMP - LAB USE ONLY 09:41:32 DROP HAMMER PILE DRIVER OPERATOR CPT-24564 Venipuncture Draw Fee 09:41:32 DROP HAMMER PILE DRIVER OPERATOR CPT-56385 First Vx - Ix admin for Medicare patients 11:19:30 CDT CPT-49508 Fluzone High-Dose Intramuscular Suspension 12/07 11:19:30 CDT CPT-J0897 Prolia 60 mg 14:55:42 CDT CPT-76696 Abx/Therapy Injection 14:55:42 CDT CPT-30487 Bone Density - XRAY USE ONLY 10:27:12 CDT 2 CPT-G0439 Subsequent Annual Wellness Exam 17:54:53 CDT CPT-93345 Foot, left, comp min 3V - XRAY USE ONLY 12:22:49 CDT CPT-G0009 Administration of Pneumococcal Vaccine 3 12:18:00 CDT CPT-92352 Pneumovax 23 Injection Injectable 25 MCG /0.5ML 12:18:00 CDT CPT-J0897 Prolia 60 mg 14:14:16 DROP HAMMER PILE DRIVER OPERATOR CPT-36024 Abx/Therapy Injection 14:14:15 DROP HAMMER PILE DRIVER OPERATOR CPT-31548 Lipid - LAB USE ONLY 10:01:52 DROP HAMMER PILE DRIVER OPERATOR 2 CPT-68010 Calcium - LAB USE ONLY 10:01:51 DROP HAMMER PILE DRIVER OPERATOR CPT-57847 Venipuncture Draw Fee 10:01:51 DROP HAMMER PILE DRIVER OPERATOR CPT-LR Lesion Removal 16:22:01 DROP HAMMER PILE DRIVER OPERATOR CPT-85333 TSH - LAB USE ONLY 14:26:02 CDT CPT-13687 CMP - LAB USE ONLY 14:26:01 CDT CPT-57812 CBC with Diff - LAB USE ONLY 14:26:01 CDT 2 CPT-08713 Venipuncture Draw Fee 14:26:01 CDT CPT-04816 First Vx - Ix admin for Medicare patients 13:27:08 CDT CPT-05216 Fluzone High-Dose Intramuscular Suspension 11/26 13:27:08 CDT CPT-G0438 Initial Annual Wellness Exam 14:19:57 CD T CPT-G0009 Administration of Pneumococcal Vaccine 9 11:36:25 CDT CPT-99211 Prevnar 13 Intramuscular Suspension 1 1:36:25 CDT CPT-43411 Prevnar 13 Intramuscular Suspension 1 0:40:58 CDT CPT-J0897 Prolia 60 mg 10:37:16 CDT CPT-49579 Abx/Therapy Injection 10:37:16 CDT CPT-J0897 Prolia 60 mg 16:09:34 DROP HAMMER PILE DRIVER OPERATOR CPT-J0897 Prolia 60 mg 11:10:35 DROP HAMMER PILE DRIVER OPERATOR CPT-04427 Abx/Therapy Injection 11:10:35 DROP HAMMER PILE DRIVER OPERATOR CPT-000 Give Appropriate Flu Vaccine 17:01:15 DROP HAMMER PILE DRIVER OPERATOR 2 CPT-17693 Fluzone High Dose (65+) 15:03:08 DROP HAMMER PILE DRIVER OPERATOR 02/15 CPT-92898 Immunization Single Admin 15:03:08 DROP HAMMER PILE DRIVER OPERATOR 2014 CPT-OV Office Visit 15:58:06 CDT CPT-J0897 Prolia 60 mg 08:45:38 CDT CPT-50679 Abx/Therapy Injection 08:45:38 CDT CPT-J3420 Vitamin B12 1000mcg (Cyanocobalamin) 09:26:20 DROP HAMMER PILE DRIVER OPERATOR CPT-93144 Abx/Therapy Injection 09:26:20 DROP HAMMER PILE DRIVER OPERATOR CPT-J3420 Vitamin B12 1000mcg (Cyanocobalamin) 09:44:40 DROP HAMMER PILE DRIVER OPERATOR CPT-82802 Abx/Therapy Injection 09:44:40 DROP HAMMER PILE DRIVER OPERATOR CPT-J3420 Vitamin B12 1000mcg (Cyanocobalamin) 09:15:54 DROP HAMMER PILE DRIVER OPERATOR CPT-47002 Abx/Therapy Injection 09:15:54 DROP HAMMER PILE DRIVER OPERATOR CPT-J3420 Vitamin B12 1000mcg (Cyanocobalamin) 09:46:44 DROP HAMMER PILE DRIVER OPERATOR CPT-34491 Abx/Therapy Injection 09:46:44 DROP HAMMER PILE DRIVER OPERATOR CPT-J3420 Vitamin B12 1000mcg (Cyanocobalamin) 09:47:34 DROP HAMMER PILE DRIVER OPERATOR CPT-41595 Abx/Therapy Injection 09:47:34 DROP HAMMER PILE DRIVER OPERATOR CPT-J3420 Vitamin B12 1000mcg (Cyanocobalamin) 14:35:50 DROP HAMMER PILE DRIVER OPERATOR CPT-J3420 Vitamin B12 1000mcg (Cyanocobalamin) 09:25:05 DROP HAMMER PILE DRIVER OPERATOR CPT-99401 Abx/Therapy Injection 09:25:05 DROP HAMMER PILE DRIVER OPERATOR CPT-G0008 Administration of Influenza Virus Vaccine 13:36:47 CDT CPT-69926 Fluzone High-Dose Intramuscular Suspension 11/15 13:36:47 CDT CPT-J0897 Prolia 60 mg 08:50:41 CDT CPT-61789 Abx/Therapy Injection 08:50:41 CDT CPT-83655 Bone Density 12:06:12 CDT CPT-38967 Bone Density 08:54:40 CDT CPT-OV Office Visit 15:37:02 CDT CPT-25424 Postop F/U Visit 15:47:49 CDT CPT-81992 Postop F/U Visit 15:21:02 CDT [facility]PT-[facility] Transitional Care Mgmt-High 07:52:27 CDT 20 20/06/01 CPT-73004 Venipuncture Draw Fee 13:51:18 CDT CPT-45335 Venipuncture Draw Fee 10:14:55 DROP HAMMER PILE DRIVER OPERATOR CPT-00675 Venipuncture Draw Fee 13:39:45 DROP HAMMER PILE DRIVER OPERATOR CPT-OV Office Visit 15:11:22 DROP HAMMER PILE DRIVER OPERATOR CPT-69105 Venipuncture Draw Fee 09:20:49 DROP HAMMER PILE DRIVER OPERATOR CPT-64904 Venipuncture Draw Fee 16:52:15 DROP HAMMER PILE DRIVER OPERATOR CPT-81571 Venipuncture Draw Fee 10:37:24 DROP HAMMER PILE DRIVER OPERATOR CPT-72243 Venipuncture Draw Fee 08:21:21 DROP HAMMER PILE DRIVER OPERATOR CPT-14196 Venipuncture Draw Fee 08:30:20 DROP HAMMER PILE DRIVER OPERATOR CPT-66655 Venipuncture Draw Fee 14:53:21 DROP HAMMER PILE DRIVER OPERATOR CPT-75479 Venipuncture Draw Fee 09:40:56 DROP HAMMER PILE DRIVER OPERATOR CPT-92068 Venipuncture Draw Fee 10:30:47 DROP HAMMER PILE DRIVER OPERATOR CPT-10482 Venipuncture Draw Fee 10:46:17 DROP HAMMER PILE DRIVER OPERATOR CPT-24080 Venipuncture Draw Fee 11:12:45 DROP HAMMER PILE DRIVER OPERATOR CPT-95186 Venipuncture Draw Fee 09:53:33 DROP HAMMER PILE DRIVER OPERATOR CPT-57506 Venipuncture Draw Fee 11:53:51 DROP HAMMER PILE DRIVER OPERATOR CPT-23165 Venipuncture Draw Fee 10:33:50 DROP HAMMER PILE DRIVER OPERATOR CPT-96306 Venipuncture Draw Fee 10:05:01 DROP HAMMER PILE DRIVER OPERATOR CPT-72168 Venipuncture Draw Fee 14:32:52 DROP HAMMER PILE DRIVER OPERATOR CPT-34744 Venipuncture Draw Fee 09:46:13 DROP HAMMER PILE DRIVER OPERATOR CPT-04255 Venipuncture Draw Fee 11:34:27 DROP HAMMER PILE DRIVER OPERATOR CPT-77901 Venipuncture Draw Fee 13:17:16 DROP HAMMER PILE DRIVER OPERATOR CPT-45977 Venipuncture Draw Fee 12:05:39 CDT CPT-98726 Venipuncture Draw Fee 12:49:12 CDT CPT-79684 Venipuncture Draw Fee 12:37:18 CDT CPT-75940 Venipuncture Draw Fee 10:57:11 CDT CPT-33984 Venipuncture Draw Fee 13:47:40 CDT CPT-61331 Venipuncture Draw Fee 10:02:17 CDT CPT-44075 TB Tubersol 17:32:32 CDT CPT-OV Office Visit 16:21:53 CDT CPT-OV Office Visit 15:49:22 CDT CPT-OV Office Visit 17:16:31 CDT CPT-OV Office Visit 10:43:31 CDT
--- OUTSIDE RECORDS SUMMARY | 2019-02-09 11:54 | XMS REPORT | Clinical Summary ---
Author Author Admin, Florecita Munoz Organization [facility] [employer] Address Unknown Phone Unavailable Allergies, Adverse Reactions, [...] Sebaceous cyst, scalp 706.2 Resolved Kylie Yokum STABILIZER OPERATOR Sebaceous cyst Cervical lymphadenopathy, anterior, left 785.6 Resolv ed Kylie Yokum STABILIZER OPERATOR Enlargement of lymph nodes Need for prophylactic vaccination and inoculation against in fluenza V04.81 Resolved Adam Yates MD Need for prophylactic vaccination and inoculation against influenza Preventive health care V70.0 Resolved Kylie Lundu m STABILIZER OPERATOR Routine general medical examination at a health care facility Thyroid nodule, left 241.0 Resolved Selena Yates MD Nontoxic uninodular goiter Screening mammogram V76.12 Resolved Kylie Yokum A PRN Other screening mammogram Mandy 706.2 Resolved Kylie Yokum STABILIZER OPERATOR Sebaceous cyst Colon cancer, ascending 153.6 Resolved Kylie Yok um STABILIZER OPERATOR Malignant neoplasm of ascending colon Foot pain, left 729.5 Resolved Kylie Yokum STABILIZER OPERATOR Pain in limb Splinter 919.6 Resolved Kylie Yokum STABILIZER OPERATOR Superficial foreign body (splinter) of other, multiple, and unspecified sites, without major open wound and without mention of infection Rash 782.1 Resolved Kylie Yokum STABILIZER OPERATOR Rash and other nonspecific skin eruption Cyst 706.2 Resolved Kylie Yokum STABILIZER OPERATOR Sebaceous cyst Body Mass Index 23.0-23.9 Adult Refinement 2017 Kylie Yokum STABILIZER OPERATOR Body Mass Index between 19-24, adult [...] MD PhD GERD ICD-530.81 Inactive Kylie Holt STABILIZER OPERATOR 2015 Health maintenance exam ICD-V70.0 Inactive Adolfo Yates MD Anemia ICD-285.9 Inactive Kylie Holt STABILIZER OPERATOR 07/24 Hypomagnesemia ICD-275.2 Inactive Kylie Holt STABILIZER OPERATOR Weakness ICD-780.79 Inactive Hope Benavidez MD [...] cyst, scalp ICD-706.2 Inactive Tracy hi Yokum STABILIZER OPERATOR Cervical lymphadenopathy, anterior, left ICD-785.6 Inactive Kylie Yokum STABILIZER OPERATOR Need for prophylactic vaccination and inoculation against in fluenza ICD-V04.81 Inactive Adam Yates MD Preventive health care ICD-V70.0 Inactive Ka thi Yokum STABILIZER OPERATOR Thyroid nodule, left ICD-241.0 Inactive Selena Yates MD Screening mammogram ICD-V76.12 Inactive Kylie Yokum STABILIZER OPERATOR Mandy ICD-706.2 Inactive Kylie Yokum STABILIZER OPERATOR 07/20 Colon cancer, ascending ICD-153.6 Inactive K athi Yokum STABILIZER OPERATOR Foot pain, left ICD-729.5 Inactive Kylie Yokum STABILIZER OPERATOR Splinter ICD-919.6 Inactive Kylie Yokum STABILIZER OPERATOR 2017 Rash ICD-782.1 Inactive Kylie Yokum STABILIZER OPERATOR 07/25 Cyst ICD-706.2 Inactive Kylie Yokum STABILIZER OPERATOR 08/11 Unspecified fall, initial encounter ICD-E888.9 Inactive Kylie Yokum STABILIZER OPERATOR Eye pain, left ICD-379.91 Inactive Kylie Yokum STABILIZER OPERATOR Pharyngitis, acute ICD-074.0 Inactive Kavin Yates [...] arm as needed for pain DICLOFENAC SODIUM 82003960040 Active Kylie Holt APR N Active IMODIUM A-D 2 MG ORAL TABLET 1 tablet twice a day LOPERAMIDE HCL 45030429596 Active Kylie Holt APRN Active COQ10 100 MG ORAL CAPSULE 1 daily COENZYME Q10 725167 90255 Active Fay Alberts [facility] Active VITAMIN D3 2000 UNIT ORAL CAPSULE Melaleuca-One daily CHOLECALCIFEROL 84082555196 Active Kylie Holt APRN Active PROBIOTIC DAILY ORAL CAPSULE Take one daily PROBIO TIC PRODUCT 29033999427 Active Kylie Holt APRN Active IRON 325 (65 Fe) MG ORAL TABLET 1 every other day FERROUS SULFATE 20839143477 No Longer Active Kylie Holt APRN Active FLORANEX ORAL PACKET 1 pack three times daily, for bowel health LACTOBACILLUS 27527862602 No Longer Active Kylie Holt APRN Active LOMOTIL 2.5-0.025 MG ORAL TABLET 1 tab by mouth prn 23/10/23 DIPHENOXYLATE-ATROPINE 35453370688 No Longer Active Kylie Lundum AMY Active MAGNESIUM GLUCONATE 250 MG ORAL TABLET 1 tab tid 23/10/23 MAGNESIUM GLUCONATE 04685572855 No Longer Active Kylie oHlt APRN Active CYANOCOBALAMIN 1000 MCG/ML INJECTION SOLUTION 1 injection ev ruben 2 weeks CYANOCOBALAMIN 92639831249 No Longer Active Kylie Lund um STABILIZER OPERATOR Active ATENOLOL 25 MG ORAL TABLET 1/2 pill by mouth daily, fo r headaches, blood pressure ATENOLOL 77437038431 Active Kylie Holt STABILIZER OPERATOR Active PROPRANOLOL HCL 80 MG ORAL TABLET 1 tab tue. and thur. PROPRANOLOL HCL 93540082371 No Longer Active Hope Benavidez MD PhD A ctive VITAMIN D3 4000 IU 1 tab 3 times daily VITAMIN D3 4000 IU No Longer Active Hope Benavidez MD PhD Active BACTRIM DS 800-160 MG ORAL TABLET 1 pill by mouth twice claudio y, for UTI SULFAMETHOXAZOLE-TRIMETHOPRIM 45806330947 No Longer Active Hope Benavidez MD PhD Active PROLIA 60 MG/ML SUBCUTANEOUS SOLUTION 1 shot every 6 months for osteoprosis DENOSUMAB 01289991854 Active Hope Benavidez MD PhD Active CALCIUM + D + K 750-500-40 MG-UNT-MCG ORAL TABLET 1 tab by m [facility] twice daily CALCIUM-VITAMIN D-VITAMIN K 86895659498 Active Hope valdez MD PhD Active DAILY VALUE MULTIVITAMIN ORAL TABLET 1 tab by mouth twice daily 201 05/16/14 MULTIPLE VITAMIN 76197422773 Active Hope Benavidez MD PhD Acti ve FISH OIL 306 MG CAPS 1 tab by mouth three times daily OMEGA-3 FATTY ACIDS 27507636853 Active Hope Benavidez MD PhD Active LUTEIN 10 MG ORAL TABLET 1 tab daily LUTEIN 80273090 408 Active Hope Benavidez MD PhD Active TRIAMTERENE-HCTZ 37.5-25 MG ORAL TABLET 1 tab by mouth daily 10/22 TRIAMTERENE-HCTZ 80692558925 Active Kylieshubham Lundoliver STABILIZER OPERATOR Active CYCLOBENZAPRINE HCL 10 MG ORAL TABLET 1 tablet by mout h three times daily as needed for headaches CYCLOBENZAPRINE HCL 62276906449 No Longer Active Adam Yates MD Active OMEPRAZOLE 20 MG ORAL CAPSULE DELAYED RELEASE 1 tablet by mo [facility] daily for GERD OMEPRAZOLE 50377493360 No Longer Active Adam Yates MD Active ZOFRAN 8 MG ORAL TABLET 1 tab by mouth every 12 hours prn 4 ONDANSETRON HCL 33986288187 No Longer Active Adam Yates MD Active PHENADOZ 25 MG RECTAL SUPPOSITORY 1 every 4 hrs. PRN 2 PROMETHAZINE HCL 29952893029 No Longer Active Adam Yates MD A ctive POTASSIUM CHLORIDE 20 MEQ ORAL PACKET by mouth twice a day prn 2 POTASSIUM CHLORIDE 39316372393 No Longer Active Adam Carpenter MD Active PROMETHAZINE HCL 25 MG ORAL TABLET 1 Q. 4 hr. PRN PROMETHAZINE HCL 50854563712 No Longer Active Adam Yates MD Active INNOPRAN XL 120 MG ORAL CAPSULE EXTENDED RELEASE 24 HO UR Take one by mouth daily PROPRANOLOL HCL SR BEADS 70084279786 No Longer Active Adam Yates MD Active FLAGYL 500 MG ORAL TABLET 1 pill by mouth three times daily, for diarrhea METRONIDAZOLE 40267010531 No Longer Active Hope landers MD PhD Active DYAZIDE 37.5-25 MG ORAL CAPSULE 1 qd TRIA MTERENE-HCTZ 02722462670 No Longer Active Hope Benavidez MD PhD Active PROZAC 20 MG ORAL CAPSULE 1 q d FLUOXETINE HCL 43842103278 No Longer Active Hope Benavidez MD PhD Active SIMVASTATIN 40 MG ORAL TABLET 1 qd SIMVAS TATIN 48676217685 No Longer Active Adam Yates MD Active MELOXICAM 15 MG ORAL TABLET 1 qd MELOXICAM 37585181095 No Longer Active Adam Yates MD Active EXCEDRIN EXTRA STRENGTH 250-250-65 MG ORAL TABLET 1-2 q6h IA N headache [id number] 61556754036 Active Hope Benavidez MD PhD Active FLAGYL 500 MG ORAL TABLET 1 qid METRONIDAZOL E 34028811664 No Longer Active Adam Yates MD Active LEVAQUIN 750 MG ORAL TABLET 1 qd LEVOFLOXAC IN 56078087873 No Longer Active Adam Yates MD Active ADULT ASPIRIN LOW STRENGTH 81 MG ORAL TABLET DISINTEGRATING 1 qd ASPIRIN 61286589808 Active Hope Benavidez MD PhD Active LEVAQUIN 750 MG ORAL TABLET 1 qd LEVAQUIN 750 MG ORAL TABLET 651208 LEVOFLOXACIN Inactive FLAGYL 500 MG ORAL TABLET 1 qid FLAGYL 500 MG ORAL TABLET 045263 METRONIDAZOLE Inactive MELOXICAM 15 MG ORAL TABLET 1 qd MELOXICAM 15 MG ORAL TABLET 829788 MELOXICAM Inactive SIMVASTATIN 40 MG ORAL TABLET 1 qd SIMVASTATIN 40 MG ORAL TABLET 843936 SIMVASTATIN Inactive PROZAC 20 MG ORAL CAPSULE 1 q d PROZAC 20 MG ORAL CAPSULE 064749 FLUOXETINE HCL Inactive DYAZIDE 37.5-25 MG ORAL CAPSULE 1 qd 5 DYAZIDE 37.5-25 MG ORAL CAPSULE 423355 TRIAMTERENE-HCTZ Inactive INNOPRAN XL 120 MG ORAL CAPSULE EXTENDED RELEASE 24 HO UR Take one by mouth daily INNOPRAN XL 120 MG ORAL CAPSULE EXTENDED RELEASE 24 HOUR PROPRANOLOL HCL SR BEADS Inactive PROMETHAZINE HCL 25 MG ORAL TABLET 1 Q. 4 hr. PRN 2013 PROMETHAZINE HCL 25 MG ORAL TABLET 530417 PROMETHAZINE HCL Inactive POTASSIUM CHLORIDE 20 MEQ ORAL PACKET by mouth twice a day prn 2 POTASSIUM CHLORIDE 20 MEQ ORAL PACKET 7904531 POTASSIUM CHLORIDE Inactive PHENADOZ 25 MG RECTAL SUPPOSITORY 1 every 4 hrs. PRN PHENADOZ 25 MG RECTAL SUPPOSITORY 134233 PROMETHAZINE HCL Inactive ZOFRAN 8 MG ORAL TABLET 1 tab by mouth every 12 hours prn 4 ZOFRAN 8 MG ORAL TABLET 410703 ONDANSETRON HCL Inactive OMEPRAZOLE 20 MG ORAL CAPSULE DELAYED RELEASE 1 tablet by mo uth daily for GERD OMEPRAZOLE 20 MG ORAL CAPSULE DELAYED RELEASE 19 8051 OMEPRAZOLE Inactive CYCLOBENZAPRINE HCL 10 MG ORAL TABLET 1 tablet by mout h three times daily as needed for headaches CYCLOBENZAPRINE HCL 10 MG ORAL TABLET 901850 CYCLOBENZAPRINE HCL Inactive VITAMIN D3 4000 IU 1 tab 3 times daily VITAMIN D3 4000 IU Inactive PROPRANOLOL HCL 80 MG ORAL TABLET 1 tab tue. and thur. PROPRANOLOL HCL 80 MG ORAL TABLET 465443 PROPRANOLOL HCL Inacti ve CYANOCOBALAMIN 1000 MCG/ML INJECTION SOLUTION 1 injection ev ruben 2 weeks CYANOCOBALAMIN 1000 MCG/ML INJECTION SOLUTION 30 9594 CYANOCOBALAMIN Inactive MAGNESIUM GLUCONATE 250 MG ORAL TABLET 1 tab tid 23/10/23 MAGNESIUM GLUCONATE 250 MG ORAL TABLET 225181 MAGNESIUM GLUCONATE Inactive LOMOTIL 2.5-0.025 MG ORAL TABLET 1 tab by mouth prn 23/10/23 LOMOTIL 2.5-0.025 MG ORAL TABLET 0674640 DIPHENOXYLATE-ATROPINE Inac tive FLORANEX ORAL PACKET 1 pack three times daily, for bowel health FLORANEX ORAL PACKET 33617326068 LACTOBACILLUS Inactive IRON 325 (65 Fe) MG ORAL TABLET 1 every other day 2015 IRON 325 (65 Fe) MG ORAL TABLET 549255 FERROUS SULFATE Inactive FLAGYL 500 MG ORAL TABLET 1 pill by mouth three times daily, for diarrhea FLAGYL 500 MG ORAL TABLET 138323 METRONIDAZOLE I nactive BACTRIM DS 800-160 MG ORAL TABLET 1 pill by mouth twice claudio y, for UTI BACTRIM DS 800-160 MG ORAL TABLET 910579 SULFAMETHOXAZOLE-TRIMETHOPRIM Inactive Advance Directives Directive Description Start [...] Description blood pressure, diastolic, repeated by physician 75 [...] ... - Chemistry cholesterol, serum 211 mg/dL 188-807 9639/01/10 triglyceride, serum, fasting 77 mg/dL 30-200 HDL cholesterol, serum 70 mg/dL 32-60 LDL cholesterol, serum 126 mg/dL 0-130 TSH 1.19 m[iU]/mL 0.36-3.74 sodium, serum 141 mmol/L 039-040 9901/01/10 potassium, serum 3.7 mmol/L 3.5-5.2 chloride, serum [...] mg/g Abnormal mg/g mg/L 0-29 Lab Report: CEA - Serology carcinoembryonic antigen 0.6 ng/mL Lab Report: Comp. Metabolic Panel - Chem istry sodium, serum 142 mmol/L 919-125 5678/04/19 carbon dioxide, venous blood 30.2 mmol/L 21.0-32 .0 potassium, serum 3.8 mmol/L 3.5-5.2 chloride, serum 101 mmol/L 98-107 blood glucose 97 mg/dL 65-110 urea nitrogen, blood 23 mg/dL 7-18 creatinine, serum 1.33 mg/dL 0.60-1.30 alanine aminotransferase (SGPT), serum 27 U/L -78 aspartate aminotransferase (SGOT), serum 24 U/L 15-37 calcium, serum 9.4 mg/dL 8.5-10.1 bilirubin, serum, total 0.80 mg/dL 0.00-1.00 Lab Report: Comp. Metabolic Panel, Thyro id Stimulating Hormone (L), Free ... - Chemistry calcium, serum 9.1 mg/dL 8.5-10.1 bilirubin, serum, total 0.60 mg/dL 0.00-1.00 TSH 1.76 m[iU]/mL 0.36-3.74 thyroxine, serum, free 0.82 ng/dL 0.59-1.17 sodium, serum 142 mmol/L 895-452 6193/04/16 carbon dioxide, venous blood 30.0 mmol/L 21.0-32 .0 potassium, serum 3.2 mmol/L 3.5-5.2 chloride, serum 101 mmol/L 98-107 blood glucose 77 mg/dL 65-95 urea nitrogen, blood 21 mg/dL 7-18 creatinine, serum 1.52 mg/dL 0.60-1.30 Estimated Glomerular Filtration Rate (calc) 36 (?) mL/min/1.73m2 = OR > 60 mL/min alanine aminotransferase (SGPT), serum 24 U/L -78 aspartate aminotransferase (SGOT), serum 21 U/L 15-37 Lab Report: Comp. Metabolic Panel, Thyro id Stimulating Hormone (L), Free ... - Lab Alkaline phosphatase 48 50-136 Lab Report: Renal Panel, Magnesium - Chelle radha sodium, serum 142 mmol/L 682-111 5638/11/02 potassium, serum 3.4 mmol/L 3.5-5.2 chloride, serum [...] mg/dL Encounters Code Encounter Date Provider Facility CPT-35353 Level 4 Est. Patient 15:35:24 PHOTOENGRAVING RETOUCHER Adam Yates MD [facility] CPT-30269 Level 3 New Patient 12:08:54 PHOTOENGRAVING RETOUCHER Adam Yates MD [facility] CPT-15961 [id number] Vst-Est Level IV 19:48:30 PHOTOENGRAVING RETOUCHER Tracy Holt [facility] [place] CPT-42602 [id number] Vst-Est Level III 14:29:19 CDT Fiorella Holt [facility] [place] CPT-88731 Level 2 Est. Patient 14:58:26 CDT Kylie boyd [facility] [place] CPT-03823 Level 3 Est. Patient 08:15:24 PHOTOENGRAVING RETOUCHER Kylie boyd [facility] [place] CPT-09846 Level 2 Est. Patient 14:27:16 PHOTOENGRAVING RETOUCHER Kylie boyd [facility] [place] CPT-60058 Level 3 Est. Patient 17:54:48 CDT Kylie Lund [facility] CPT-30758 Level 3 Est. Patient 16:26:30 CDT Kina blackmon [facility] CPT-92443 Level 3 New Patient 16:22:01 PHOTOENGRAVING RETOUCHER Adam Yates MD [facility] CPT-18120 Level 4 Est. Patient 17:00:48 CDT Kylie Lund [facility] CPT-92928 Level 3 Est. Patient 13:15:54 CDT Kylie Lund [facility] CPT-15924 Level 3 Est. Patient 09:10:11 CDT Kylie Lund [facility] CPT-22813 Level 4 Est. Patient 12:08:30 PHOTOENGRAVING RETOUCHER Hope cohn MD [facility] CPT-07879 Level 4 Est. Patient 19:08:42 PHOTOENGRAVING RETOUCHER Hope cohn MD [facility] CPT-49749 Level 4 Est. Patient 20:04:51 CDT Hope cohn MD [facility] CPT-19777 Level 3 New Patient 01:46:11 PHOTOENGRAVING RETOUCHER Hope landers MD [facility] Procedures Code Procedure Name Date Entry Date Standard Desc ription CPT-07535 Postop F/U Visit 15:45:41 CDT CPT-21421 Sono Soft Tissue Head and Neck - XRAY US E ONLY 11:56:06 PHOTOENGRAVING RETOUCHER CPT-38880 Abx/Therapy Injection 09:40:08 PHOTOENGRAVING RETOUCHER CPT-J0897 Prolia 60 mg 09:40:08 PHOTOENGRAVING RETOUCHER CPT-72832 First Vx - Ix admin for Medicare patients 02/08 10:02:45 CDT CPT-10318 Fluzone Quadrivalent Intramuscular Suspe nsion 0.5 ML 10:02:45 CDT CPT-10637 Magnesium - LAB USE ONLY 09:41:00 CDT 12/09 CPT-40390 Renal Panel - LAB USE ONLY 09:41:00 CDT 201 09/17/01 CPT-04091 Venipuncture Draw Fee 09:41:00 CDT CPT-52431 Calcium - LAB USE ONLY 17:25:11 CDT CPT-J0897 Prolia 60 mg 15:10:59 CDT CPT-45769 Abx/Therapy Injection 15:10:59 CDT CPT-G0439 [facility] Annual Wellness Exam 14:29:19 CDT CPT-32084 Venipuncture Draw Fee 10:59:04 CDT CPT-33317 CMP - LAB USE ONLY 10:59:04 CDT CPT-34126 CBC with Diff - LAB USE ONLY 10:59:03 CDT 2 CPT-J0897 Prolia 60 mg 15:46:54 PHOTOENGRAVING RETOUCHER CPT-19351 Abx/Therapy Injection 15:46:54 PHOTOENGRAVING RETOUCHER CPT-64549 Microalbumin - LAB USE ONLY 09:41:32 PHOTOENGRAVING RETOUCHER 20 23/01/15 CPT-48866 Free T4 - LAB USE ONLY 09:41:32 PHOTOENGRAVING RETOUCHER CPT-34459 TSH - LAB USE ONLY 09:41:32 PHOTOENGRAVING RETOUCHER CPT-55740 BMP - LAB USE ONLY 09:41:32 PHOTOENGRAVING RETOUCHER CPT-72282 Venipuncture Draw Fee 09:41:32 PHOTOENGRAVING RETOUCHER CPT-60675 First Vx - Ix admin for Medicare patients 11:19:30 CDT CPT-41678 Fluzone High-Dose Intramuscular Suspension 12/07 11:19:30 CDT CPT-J0897 Prolia 60 mg 14:55:42 CDT CPT-15213 Abx/Therapy Injection 14:55:42 CDT CPT-44676 Bone Density - XRAY USE ONLY 10:27:12 CDT 2 CPT-G0439 Subsequent Annual Wellness Exam 17:54:53 CDT CPT-08034 Foot, left, comp min 3V - XRAY USE ONLY 12:22:49 CDT CPT-G0009 Administration of Pneumococcal Vaccine 3 12:18:00 CDT CPT-21410 Pneumovax 23 Injection Injectable 25 MCG /0.5ML 12:18:00 CDT CPT-J0897 Prolia 60 mg 14:14:16 PHOTOENGRAVING RETOUCHER CPT-37247 Abx/Therapy Injection 14:14:15 PHOTOENGRAVING RETOUCHER CPT-87019 Lipid - LAB USE ONLY 10:01:52 PHOTOENGRAVING RETOUCHER 2 CPT-20586 Calcium - LAB USE ONLY 10:01:51 PHOTOENGRAVING RETOUCHER CPT-64136 Venipuncture Draw Fee 10:01:51 PHOTOENGRAVING RETOUCHER CPT-LR Lesion Removal 16:22:01 PHOTOENGRAVING RETOUCHER CPT-63651 TSH - LAB USE ONLY 14:26:02 CDT CPT-51839 CMP - LAB USE ONLY 14:26:01 CDT CPT-26728 CBC with Diff - LAB USE ONLY 14:26:01 CDT 2 CPT-41258 Venipuncture Draw Fee 14:26:01 CDT CPT-39097 First Vx - Ix admin for Medicare patients 13:27:08 CDT CPT-91225 Fluzone High-Dose Intramuscular Suspension 11/26 13:27:08 CDT CPT-G0438 Initial Annual Wellness Exam 14:19:57 CD T CPT-G0009 Administration of Pneumococcal Vaccine 9 11:36:25 CDT CPT-01215 Prevnar 13 Intramuscular Suspension 1 1:36:25 CDT CPT-10902 Prevnar 13 Intramuscular Suspension 1 0:40:58 CDT CPT-J0897 Prolia 60 mg 10:37:16 CDT CPT-91145 Abx/Therapy Injection 10:37:16 CDT CPT-J0897 Prolia 60 mg 16:09:34 PHOTOENGRAVING RETOUCHER CPT-J0897 Prolia 60 mg 11:10:35 PHOTOENGRAVING RETOUCHER CPT-70426 Abx/Therapy Injection 11:10:35 PHOTOENGRAVING RETOUCHER CPT-000 Give Appropriate Flu Vaccine 17:01:15 PHOTOENGRAVING RETOUCHER 2 CPT-40299 Fluzone High Dose (65+) 15:03:08 PHOTOENGRAVING RETOUCHER 02/15 CPT-06890 Immunization Single Admin 15:03:08 PHOTOENGRAVING RETOUCHER 2014 CPT-OV Office Visit 15:58:06 CDT CPT-J0897 Prolia 60 mg 08:45:38 CDT CPT-81597 Abx/Therapy Injection 08:45:38 CDT CPT-J3420 Vitamin B12 1000mcg (Cyanocobalamin) 09:26:20 PHOTOENGRAVING RETOUCHER CPT-29486 Abx/Therapy Injection 09:26:20 PHOTOENGRAVING RETOUCHER CPT-J3420 Vitamin B12 1000mcg (Cyanocobalamin) 09:44:40 PHOTOENGRAVING RETOUCHER CPT-01232 Abx/Therapy Injection 09:44:40 PHOTOENGRAVING RETOUCHER CPT-J3420 Vitamin B12 1000mcg (Cyanocobalamin) 09:15:54 PHOTOENGRAVING RETOUCHER CPT-76622 Abx/Therapy Injection 09:15:54 PHOTOENGRAVING RETOUCHER CPT-J3420 Vitamin B12 1000mcg (Cyanocobalamin) 09:46:44 PHOTOENGRAVING RETOUCHER CPT-37804 Abx/Therapy Injection 09:46:44 PHOTOENGRAVING RETOUCHER CPT-J3420 Vitamin B12 1000mcg (Cyanocobalamin) 09:47:34 PHOTOENGRAVING RETOUCHER CPT-79649 Abx/Therapy Injection 09:47:34 PHOTOENGRAVING RETOUCHER CPT-J3420 Vitamin B12 1000mcg (Cyanocobalamin) 14:35:50 PHOTOENGRAVING RETOUCHER CPT-J3420 Vitamin B12 1000mcg (Cyanocobalamin) 09:25:05 PHOTOENGRAVING RETOUCHER CPT-43696 Abx/Therapy Injection 09:25:05 PHOTOENGRAVING RETOUCHER CPT-G0008 Administration of Influenza Virus Vaccine 13:36:47 CDT CPT-02712 Fluzone High-Dose Intramuscular Suspension 11/15 13:36:47 CDT CPT-J0897 Prolia 60 mg 08:50:41 CDT CPT-63231 Abx/Therapy Injection 08:50:41 CDT CPT-28234 Bone Density 12:06:12 CDT CPT-13460 Bone Density 08:54:40 CDT CPT-OV Office Visit 15:37:02 CDT CPT-29538 Postop F/U Visit 15:47:49 CDT CPT-98598 Postop F/U Visit 15:21:02 CDT CPT-TCM Transitional Care Mgmt-High 07:52:27 CDT 20 20/06/01 CPT-19783 Venipuncture Draw Fee 13:51:18 CDT CPT-63085 Venipuncture Draw Fee 10:14:55 PHOTOENGRAVING RETOUCHER CPT-67390 Venipuncture Draw Fee 13:39:45 PHOTOENGRAVING RETOUCHER CPT-OV Office Visit 15:11:22 PHOTOENGRAVING RETOUCHER CPT-82388 Venipuncture Draw Fee 09:20:49 PHOTOENGRAVING RETOUCHER CPT-17668 Venipuncture Draw Fee 16:52:15 PHOTOENGRAVING RETOUCHER CPT-25941 Venipuncture Draw Fee 10:37:24 PHOTOENGRAVING RETOUCHER CPT-28766 Venipuncture Draw Fee 08:21:21 PHOTOENGRAVING RETOUCHER CPT-70744 Venipuncture Draw Fee 08:30:20 PHOTOENGRAVING RETOUCHER CPT-18293 Venipuncture Draw Fee 14:53:21 PHOTOENGRAVING RETOUCHER CPT-72796 Venipuncture Draw Fee 09:40:56 PHOTOENGRAVING RETOUCHER CPT-24030 Venipuncture Draw Fee 10:30:47 PHOTOENGRAVING RETOUCHER CPT-44821 Venipuncture Draw Fee 10:46:17 PHOTOENGRAVING RETOUCHER CPT-25810 Venipuncture Draw Fee 11:12:45 PHOTOENGRAVING RETOUCHER CPT-74767 Venipuncture Draw Fee 09:53:33 PHOTOENGRAVING RETOUCHER CPT-49865 Venipuncture Draw Fee 11:53:51 PHOTOENGRAVING RETOUCHER CPT-75369 Venipuncture Draw Fee 10:33:50 PHOTOENGRAVING RETOUCHER CPT-88218 Venipuncture Draw Fee 10:05:01 PHOTOENGRAVING RETOUCHER CPT-31386 Venipuncture Draw Fee 14:32:52 PHOTOENGRAVING RETOUCHER CPT-24177 Venipuncture Draw Fee 09:46:13 PHOTOENGRAVING RETOUCHER CPT-48164 Venipuncture Draw Fee 11:34:27 PHOTOENGRAVING RETOUCHER CPT-26827 Venipuncture Draw Fee 13:17:16 PHOTOENGRAVING RETOUCHER CPT-43585 Venipuncture Draw Fee 12:05:39 CDT CPT-09251 Venipuncture Draw Fee 12:49:12 CDT CPT-94802 Venipuncture Draw Fee 12:37:18 CDT CPT-31665 Venipuncture Draw Fee 10:57:11 CDT CPT-02039 Venipuncture Draw Fee 13:47:40 CDT CPT-06569 Venipuncture Draw Fee 10:02:17 CDT CPT-81180 TB Tubersol 17:32:32 CDT CPT-OV Office Visit 16:21:53 CDT CPT-OV Office Visit 15:49:22 CDT CPT-OV Office Visit 17:16:31 CDT CPT-OV Office Visit 10:43:31 CDT
--- OUTSIDE RECORDS SUMMARY | 2019-02-09 11:54 | XMS REPORT | Clinical Summary ---
Author Author Admin, Florecita Munoz Organization [facility] [employer] Address Unknown Phone Unavailable Allergies, Adverse Reactions, [...] Sebaceous cyst, scalp 706.2 Resolved Kylie Yokum [employer]AT [employer]PATCHER Sebaceous cyst Cervical lymphadenopathy, anterior, left 785.6 Resolv ed Kylie Yokum [employer]PATCHER Enlargement of lymph nodes Need for prophylactic vaccination and inoculation against in fluenza V04.81 Resolved Adam Yates MD Need for prophylactic vaccination and inoculation against influenza Preventive health care V70.0 Resolved Kylie Lundu m [employer] DISPATCHER Routine general medical examination at a health care facility Thyroid nodule, left 241.0 Resolved Selena Yates MD Nontoxic uninodular goiter Screening mammogram V76.12 Resolved Kylie Yokum A PRN Other screening mammogram Mandy 706.2 Resolved Kylie Yokum BOAT DISPATCHER Sebaceous cyst Colon cancer, ascending 153.6 Resolved Kylie Yok um BOAT DISPATCHER Malignant neoplasm of ascending colon Foot pain, left 729.5 Resolved Kylie Yokum BOAT DISPATCHER Pain in limb Splinter 919.6 Resolved Kylie Yokum BOAT DISPATCHER Superficial foreign body (splinter) of other, multiple, and unspecified sites, without major open wound and without mention of infection Rash 782.1 Resolved Kylie Yokum BOAT DISPATCHER Rash and other nonspecific skin eruption Cyst 706.2 Resolved Kylie Yokum BOAT DISPATCHER Sebaceous cyst Body Mass Index 23.0-23.9 Adult Refinement 2017 Kylie Yokum BOAT DISPATCHER Body Mass Index between 19-24, adult BMI [...] Underweight Follicular adenoma, thyroid 226 Resolved Adam Yaets MD Benign neoplasm of thyroid glands Carcinoma, [...] MD PhD GERD ICD-530.81 Inactive Kylie Holt BOAT DISPATCHER 2015 Health maintenance exam ICD-V70.0 Inactive Adolfo Yates MD Anemia ICD-285.9 Inactive Kylie Holt BOAT DISPATCHER 07/24 Hypomagnesemia ICD-275.2 Inactive Kylie Holt BOAT DISPATCHER Weakness ICD-780.79 Inactive Hope Benavidez MD P [...] cyst, scalp ICD-706.2 Inactive Tracy hi Yokum BOAT DISPATCHER Cervical lymphadenopathy, anterior, left ICD-785.6 Inactive Kylie Yokum BOAT DISPATCHER Need for prophylactic vaccination and inoculation against in fluenza ICD-V04.81 Inactive Adam Yates MD Preventive health care ICD-V70.0 Inactive Ka thi Yokum BOAT DISPATCHER Thyroid nodule, left ICD-241.0 Inactive Selena Yates MD Screening mammogram ICD-V76.12 Inactive Kylie Yokum BOAT DISPATCHER Mandy ICD-706.2 Inactive Kylie Yokum BOAT DISPATCHER 07/20 Colon cancer, ascending ICD-153.6 Inactive K athi Yokum BOAT DISPATCHER Foot pain, left ICD-729.5 Inactive Kylie Yokum BOAT DISPATCHER Splinter ICD-919.6 Inactive Kylie Yokum BOAT DISPATCHER 2017 Rash ICD-782.1 Inactive Kylie Yokum BOAT DISPATCHER 07/25 Cyst ICD-706.2 Inactive Kylie Yokum BOAT DISPATCHER 08/11 Unspecified fall, initial encounter ICD-E888.9 Inactive Kylie Yokum BOAT DISPATCHER Eye pain, left ICD-379.91 Inactive Kylie Yokum BOAT DISPATCHER Pharyngitis, acute ICD-074.0 Inactive Kavin Yates MD [...] arm as needed for pain DICLOFENAC SODIUM 98115448659 Active Kylie Holt APR N Active IMODIUM A-D 2 MG ORAL TABLET 1 tablet twice a day LOPERAMIDE HCL 58179213227 Active Kylie Holt APRN Active COQ10 100 MG ORAL CAPSULE 1 daily COENZYME Q10 507872 95850 Active Fay Alberts [facility] Active VITAMIN D3 2000 UNIT ORAL CAPSULE Melaleuca-One daily CHOLECALCIFEROL 24312202068 Active Kylie Holt APRN Active PROBIOTIC DAILY ORAL CAPSULE Take one daily PROBIO TIC PRODUCT 31480267692 Active Kylie Holt APRN Active IRON 325 (65 Fe) MG ORAL TABLET 1 every other day FERROUS SULFATE 24861477004 No Longer Active Kylie Holt APRN Active FLORANEX ORAL PACKET 1 pack three times daily, for bowel health LACTOBACILLUS 66489894680 No Longer Active Kylie Holt APRN Active LOMOTIL 2.5-0.025 MG ORAL TABLET 1 tab by mouth prn 23/10/23 DIPHENOXYLATE-ATROPINE 31391031505 No Longer Active Kylie Lundum AMY Active MAGNESIUM GLUCONATE 250 MG ORAL TABLET 1 tab tid 23/10/23 MAGNESIUM GLUCONATE 02749011936 No Longer Active Kylie Holt APRN Active CYANOCOBALAMIN 1000 MCG/ML INJECTION SOLUTION 1 injection ev ruben 2 weeks CYANOCOBALAMIN 91473926203 No Longer Active Kylie Lund um BOAT DISPATCHER Active ATENOLOL 25 MG ORAL TABLET 1/2 pill by mouth daily, fo r headaches, blood pressure ATENOLOL 49835547392 Active Kylie Holt BOAT DISPATCHER Active PROPRANOLOL HCL 80 MG ORAL TABLET 1 tab tue. and thur. PROPRANOLOL HCL 67078144519 No Longer Active Hope Benavidez MD PhD A ctive VITAMIN D3 4000 IU 1 tab 3 times daily VITAMIN D3 4000 IU No Longer Active Hope Benavidez MD PhD Active BACTRIM DS 800-160 MG ORAL TABLET 1 pill by mouth twice claudio y, for UTI SULFAMETHOXAZOLE-TRIMETHOPRIM 98503997065 No Longer Active Hope Benavidez MD PhD Active PROLIA 60 MG/ML SUBCUTANEOUS SOLUTION 1 shot every 6 months for osteoprosis DENOSUMAB 97455619451 Active Hope Benavidez MD PhD Active CALCIUM + D + K 750-500-40 MG-UNT-MCG ORAL TABLET 1 tab by m [facility] twice daily CALCIUM-VITAMIN D-VITAMIN K 09265356760 Active Hope valdez MD PhD Active DAILY VALUE MULTIVITAMIN ORAL TABLET 1 tab by mouth twice daily 201 05/16/14 MULTIPLE VITAMIN 39873129335 Active Hope Benavidez MD PhD Acti ve FISH OIL 306 MG CAPS 1 tab by mouth three times daily OMEGA-3 FATTY ACIDS 71266411181 Active Hope Benavidez MD PhD Active LUTEIN 10 MG ORAL TABLET 1 tab daily LUTEIN 57007594 408 Active Hope Benavidez MD PhD Active TRIAMTERENE-HCTZ 37.5-25 MG ORAL TABLET 1 tab by mouth daily 10/22 TRIAMTERENE-HCTZ 87089983141 Active Kylieshubham Lundoliver BOAT DISPATCHER Active CYCLOBENZAPRINE HCL 10 MG ORAL TABLET 1 tablet by mout h three times daily as needed for headaches CYCLOBENZAPRINE HCL 40552477790 No Longer Active Adam Yates MD Active OMEPRAZOLE 20 MG ORAL CAPSULE DELAYED RELEASE 1 tablet by mo [facility] daily for GERD OMEPRAZOLE 55458818545 No Longer Active Adam Yates MD Active ZOFRAN 8 MG ORAL TABLET 1 tab by mouth every 12 hours prn 4 ONDANSETRON HCL 36899145053 No Longer Active Adam Yates MD Active PHENADOZ 25 MG RECTAL SUPPOSITORY 1 every 4 hrs. PRN 2 PROMETHAZINE HCL 21299267375 No Longer Active Adam Yates MD A ctive POTASSIUM CHLORIDE 20 MEQ ORAL PACKET by mouth twice a day prn 2 POTASSIUM CHLORIDE 21357294378 No Longer Active Adam Carpenter MD Active PROMETHAZINE HCL 25 MG ORAL TABLET 1 Q. 4 hr. PRN PROMETHAZINE HCL 63621611426 No Longer Active Adam Yates MD Active INNOPRAN XL 120 MG ORAL CAPSULE EXTENDED RELEASE 24 HO UR Take one by mouth daily PROPRANOLOL HCL SR BEADS 75340935864 No Longer Active Adam Yates MD Active FLAGYL 500 MG ORAL TABLET 1 pill by mouth three times daily, for diarrhea METRONIDAZOLE 20215922092 No Longer Active Hope landers MD PhD Active DYAZIDE 37.5-25 MG ORAL CAPSULE 1 qd TRIA MTERENE-HCTZ 69712563173 No Longer Active Hope Benavidez MD PhD Active PROZAC 20 MG ORAL CAPSULE 1 q d FLUOXETINE HCL 65636827722 No Longer Active Hope Benavidez MD PhD Active SIMVASTATIN 40 MG ORAL TABLET 1 qd SIMVAS TATIN 28977707391 No Longer Active Adam Yates MD Active MELOXICAM 15 MG ORAL TABLET 1 qd MELOXICAM 76383759859 No Longer Active Adam Yates MD Active EXCEDRIN EXTRA STRENGTH 250-250-65 MG ORAL TABLET 1-2 q6h MS N headache UQQBLNA-[id number]-RGGPNAXT 06175416670 Active Hope Benavidez MD PhD Active FLAGYL 500 MG ORAL TABLET 1 qid METRONIDAZOL E 88319062091 No Longer Active Adam Yates MD Active LEVAQUIN 750 MG ORAL TABLET 1 qd LEVOFLOXAC IN 78999752004 No Longer Active Adam Yates MD Active ADULT ASPIRIN LOW STRENGTH 81 MG ORAL TABLET DISINTEGRATING 1 qd ASPIRIN 69433955170 Active Hope Benavidez MD PhD Active LEVAQUIN 750 MG ORAL TABLET 1 qd LEVAQUIN 750 MG ORAL TABLET 208538 LEVOFLOXACIN Inactive FLAGYL 500 MG ORAL TABLET 1 qid FLAGYL 500 MG ORAL TABLET 800014 METRONIDAZOLE Inactive MELOXICAM 15 MG ORAL TABLET 1 qd MELOXICAM 15 MG ORAL TABLET 893869 MELOXICAM Inactive SIMVASTATIN 40 MG ORAL TABLET 1 qd SIMVASTATIN 40 MG ORAL TABLET 654182 SIMVASTATIN Inactive PROZAC 20 MG ORAL CAPSULE 1 q d PROZAC 20 MG ORAL CAPSULE 678312 FLUOXETINE HCL Inactive DYAZIDE 37.5-25 MG ORAL CAPSULE 1 qd 5 DYAZIDE 37.5-25 MG ORAL CAPSULE 964057 TRIAMTERENE-HCTZ Inactive INNOPRAN XL 120 MG ORAL CAPSULE EXTENDED RELEASE 24 HO UR Take one by mouth daily INNOPRAN XL 120 MG ORAL CAPSULE EXTENDED RELEASE 24 HOUR PROPRANOLOL HCL SR BEADS Inactive PROMETHAZINE HCL 25 MG ORAL TABLET 1 Q. 4 hr. PRN 2013 PROMETHAZINE HCL 25 MG ORAL TABLET 039989 PROMETHAZINE HCL Inactive POTASSIUM CHLORIDE 20 MEQ ORAL PACKET by mouth twice a day prn 2 POTASSIUM CHLORIDE 20 MEQ ORAL PACKET 0048967 POTASSIUM CHLORIDE Inactive PHENADOZ 25 MG RECTAL SUPPOSITORY 1 every 4 hrs. PRN PHENADOZ 25 MG RECTAL SUPPOSITORY 350144 PROMETHAZINE HCL Inactive ZOFRAN 8 MG ORAL TABLET 1 tab by mouth every 12 hours prn 4 ZOFRAN 8 MG ORAL TABLET 674982 ONDANSETRON HCL Inactive OMEPRAZOLE 20 MG ORAL CAPSULE DELAYED RELEASE 1 tablet by mo uth daily for GERD OMEPRAZOLE 20 MG ORAL CAPSULE DELAYED RELEASE 19 8051 OMEPRAZOLE Inactive CYCLOBENZAPRINE HCL 10 MG ORAL TABLET 1 tablet by mout h three times daily as needed for headaches CYCLOBENZAPRINE HCL 10 MG ORAL TABLET 150060 CYCLOBENZAPRINE HCL Inactive VITAMIN D3 4000 IU 1 tab 3 times daily VITAMIN D3 4000 IU Inactive PROPRANOLOL HCL 80 MG ORAL TABLET 1 tab tue. and thur. PROPRANOLOL HCL 80 MG ORAL TABLET 473638 PROPRANOLOL HCL Inacti ve CYANOCOBALAMIN 1000 MCG/ML INJECTION SOLUTION 1 injection ev ruben 2 weeks CYANOCOBALAMIN 1000 MCG/ML INJECTION SOLUTION 30 9594 CYANOCOBALAMIN Inactive MAGNESIUM GLUCONATE 250 MG ORAL TABLET 1 tab tid 23/10/23 MAGNESIUM GLUCONATE 250 MG ORAL TABLET 937994 MAGNESIUM GLUCONATE Inactive LOMOTIL 2.5-0.025 MG ORAL TABLET 1 tab by mouth prn 23/10/23 LOMOTIL 2.5-0.025 MG ORAL TABLET 8089715 DIPHENOXYLATE-ATROPINE Inac tive FLORANEX ORAL PACKET 1 pack three times daily, for bowel health FLORANEX ORAL PACKET 15814664822 LACTOBACILLUS Inactive IRON 325 (65 Fe) MG ORAL TABLET 1 every other day 2015 IRON 325 (65 Fe) MG ORAL TABLET 123524 FERROUS SULFATE Inactive FLAGYL 500 MG ORAL TABLET 1 pill by mouth three times daily, for diarrhea FLAGYL 500 MG ORAL TABLET 844728 METRONIDAZOLE I nactive BACTRIM DS 800-160 MG ORAL TABLET 1 pill by mouth twice claudio y, for UTI BACTRIM DS 800-160 MG ORAL TABLET 168840 SULFAMETHOXAZOLE-TRIMETHOPRIM Inactive Advance Directives Directive Description Start [...] ... - Chemistry sodium, serum 141 mmol/L 945-765 8127/01/10 potassium, serum 3.7 mmol/L 3.5-5.2 chloride, serum 101 mmol/L 98-107 carbon dioxide, venous blood 31.0 mmol/L 21.0-32 .0 blood glucose 96 mg/dL 65-95 calcium, serum 9.5 mg/dL 8.5-10.1 urea nitrogen, blood 21 mg/dL 7-18 creatinine, serum 1.40 mg/dL 0.60-1.30 Estimated Glomerular Filtration Rate (calc) 39 (?) mL/min/1.73m2 = OR > 60 mL/min cholesterol, serum 211 mg/dL 703-514 2038/01/10 triglyceride, serum, fasting 77 mg/dL 30-200 HDL [...] ... - Chemistry sodium, serum 142 mmol/L 328-398 8653/04/16 carbon dioxide, venous blood 30.0 mmol/L 21.0-32 [...] - Chelle radha sodium, serum 142 mmol/L 668-006 2434/11/02 potassium, serum 3.4 mmol/L 3.5-5.2 chloride, serum [...] mg/dL Encounters Code Encounter Date Provider Facility CPT-49636 Level 4 Est. Patient 15:35:24 [facility] Adam Yates MD [facility] CPT-10807 Level 3 New Patient 12:08:54 [facility] Adam Yates MD [facility] CPT-66017 [id number] Vst-Est Level IV 19:48:30 [facility] Tracy Holt [facility] [place] CPT-96122 [id number] Vst-Est Level III 14:29:19 CDT Fiorella Holt [facility] [place] CPT-32061 Level 2 Est. Patient 14:58:26 CDT Kylie Kevon oliver [facility] [place] CPT-34394 Level 3 Est. Patient 08:15:24 [facility] Kylie Escalonagabbi oliver [facility] [place] CPT-37863 Level 2 Est. Patient 14:27:16 [facility] Kylie Polagabbi oliver [facility] [place] CPT-08046 Level 3 Est. Patient 17:54:48 CDT Kylie Lund oliver [facility] [place] CPT-17688 Level 3 Est. Patient 16:26:30 CDT Kinachrista blackmon [facility] CPT-55504 Level 3 New Patient 16:22:01 [facility] Adam Yates MD [facility] CPT-08979 Level 4 Est. Patient 17:00:48 CDT Kylie boyd [facility] [place] CPT-00461 Level 3 Est. Patient 13:15:54 CDT Kylie boyd [facility] CPT-82323 Level 3 Est. Patient 09:10:11 CDT Kylie boyd [facility] CPT-38014 Level 4 Est. Patient 12:08:30 [facility] Hope cohn MD PhD [facility] CPT-72935 Level 4 Est. Patient 19:08:42 [facility] Hope cohn MD PhD [facility] CPT-62033 Level 4 Est. Patient 20:04:51 CDT Hope cohn MD [facility] CPT-01060 Level 3 New Patient 01:46:11 [facility] Hope landers MD PhD [facility] Procedures Code Procedure Name Date Entry Date Standard Desc ription CPT-06220 Postop F/U Visit 15:45:41 CDT CPT-62363 Sono Soft Tissue Head and Neck - XRAY US E ONLY 11:56:06 [facility] CPT-89194 Abx/Therapy Injection 09:40:08 [facility] CPT-J0897 Prolia 60 mg 09:40:08 [facility] CPT-35879 First Vx - Ix admin for Medicare patients 02/08 10:02:45 CDT CPT-59297 Fluzone Quadrivalent Intramuscular Suspe nsion 0.5 ML 10:02:45 CDT CPT-75597 Magnesium - LAB USE ONLY 09:41:00 CDT 12/09 CPT-46389 Renal Panel - LAB USE ONLY 09:41:00 CDT 201 09/17/01 CPT-38802 Venipuncture Draw Fee 09:41:00 CDT CPT-11512 Calcium - LAB USE ONLY 17:25:11 CDT CPT-J0897 Prolia 60 mg 15:10:59 CDT CPT-01958 Abx/Therapy Injection 15:10:59 CDT CPT-G0439 Subsequent Annual Wellness Exam 14:29:19 CDT CPT-55119 Venipuncture Draw Fee 10:59:04 CDT CPT-07768 CMP - LAB USE ONLY 10:59:04 CDT CPT-31659 CBC with Diff - LAB USE ONLY 10:59:03 CDT 2 CPT-J0897 Prolia 60 mg 15:46:54 [facility] CPT-86917 Abx/Therapy Injection 15:46:54 [facility] CPT-75608 Microalbumin - LAB USE ONLY 09:41:32 [facility] 20 23/01/15 CPT-53081 Free T4 - LAB USE ONLY 09:41:32 [facility] CPT-60037 TSH - LAB USE ONLY 09:41:32 [facility] CPT-92112 BMP - LAB USE ONLY 09:41:32 [facility] CPT-17683 Venipuncture Draw Fee 09:41:32 [facility] CPT-55568 First Vx - Ix admin for Medicare patients 11:19:30 CDT CPT-85145 Fluzone High-Dose Intramuscular Suspension 12/07 11:19:30 CDT CPT-J0897 Prolia 60 mg 14:55:42 CDT CPT-77089 Abx/Therapy Injection 14:55:42 CDT CPT-88960 Bone Density - XRAY USE ONLY 10:27:12 CDT 2 CPT-G0439 Subsequent Annual Wellness Exam 17:54:53 CDT CPT-69779 Foot, left, comp min 3V - XRAY USE ONLY 12:22:49 CDT CPT-G0009 Administration of Pneumococcal Vaccine 3 12:18:00 CDT CPT-24540 Pneumovax 23 Injection Injectable 25 MCG /0.5ML 12:18:00 CDT CPT-J0897 Prolia 60 mg 14:14:16 [facility] CPT-16965 Abx/Therapy Injection 14:14:15 [facility] CPT-14711 Lipid - LAB USE ONLY 10:01:52 [facility] 2 CPT-08671 Calcium - LAB USE ONLY 10:01:51 [facility] CPT-25917 Venipuncture Draw Fee 10:01:51 [facility] CPT-LR Lesion Removal 16:22:01 [facility] CPT-46852 TSH - LAB USE ONLY 14:26:02 CDT CPT-33888 CMP - LAB USE ONLY 14:26:01 CDT CPT-17087 CBC with Diff - LAB USE ONLY 14:26:01 CDT 2 CPT-05367 Venipuncture Draw Fee 14:26:01 CDT CPT-21964 First Vx - Ix admin for Medicare patients 13:27:08 CDT CPT-33395 Fluzone High-Dose Intramuscular Suspension 11/26 13:27:08 CDT CPT-G0438 Initial Annual Wellness Exam 14:19:57 CD T CPT-G0009 Administration of Pneumococcal Vaccine 9 11:36:25 CDT CPT-45101 Prevnar 13 Intramuscular Suspension 1 1:36:25 CDT CPT-52899 Prevnar 13 Intramuscular Suspension 1 0:40:58 CDT CPT-J0897 Prolia 60 mg 10:37:16 CDT CPT-52375 Abx/Therapy Injection 10:37:16 CDT CPT-J0897 Prolia 60 mg 16:09:34 [facility] CPT-J0897 Prolia 60 mg 11:10:35 [facility] CPT-99667 Abx/Therapy Injection 11:10:35 [facility] CPT-000 Give Appropriate Flu Vaccine 17:01:15 [facility] 2 CPT-24468 Fluzone High Dose (65+) 15:03:08 [facility] 02/15 CPT-58375 Immunization Single Admin 15:03:08 [facility] 2014 CPT-OV Office Visit 15:58:06 CDT CPT-J0897 Prolia 60 mg 08:45:38 CDT CPT-06940 Abx/Therapy Injection 08:45:38 CDT CPT-J3420 Vitamin B12 1000mcg (Cyanocobalamin) 09:26:20 [facility] CPT-99545 Abx/Therapy Injection 09:26:20 [facility] CPT-J3420 Vitamin B12 1000mcg (Cyanocobalamin) 09:44:40 [facility] CPT-39301 Abx/Therapy Injection 09:44:40 [facility] CPT-J3420 Vitamin B12 1000mcg (Cyanocobalamin) 09:15:54 [facility] CPT-64950 Abx/Therapy Injection 09:15:54 [facility] CPT-J3420 Vitamin B12 1000mcg (Cyanocobalamin) 09:46:44 [facility] CPT-68041 Abx/Therapy Injection 09:46:44 [facility] CPT-J3420 Vitamin B12 1000mcg (Cyanocobalamin) 09:47:34 [facility] CPT-26661 Abx/Therapy Injection 09:47:34 [facility] CPT-J3420 Vitamin B12 1000mcg (Cyanocobalamin) 14:35:50 [facility] CPT-J3420 Vitamin B12 1000mcg (Cyanocobalamin) 09:25:05 [facility] CPT-78259 Abx/Therapy Injection 09:25:05 [facility] CPT-G0008 Administration of Influenza Virus Vaccine 13:36:47 CDT CPT-41008 Fluzone High-Dose Intramuscular Suspension 11/15 13:36:47 CDT CPT-J0897 Prolia 60 mg 08:50:41 CDT CPT-27292 Abx/Therapy Injection 08:50:41 CDT CPT-55393 Bone Density 12:06:12 CDT CPT-48425 Bone Density 08:54:40 CDT CPT-OV Office Visit 15:37:02 CDT CPT-98210 Postop F/U Visit 15:47:49 CDT CPT-33516 Postop F/U Visit 15:21:02 CDT CPT-[facility] Transitional Care Mgmt-High 07:52:27 CDT 20 20/06/01 CPT-85909 Venipuncture Draw Fee 13:51:18 CDT CPT-08927 Venipuncture Draw Fee 10:14:55 [facility] CPT-02219 Venipuncture Draw Fee 13:39:45 [facility] CPT-OV Office Visit 15:11:22 [facility] CPT-35957 Venipuncture Draw Fee 09:20:49 [facility] CPT-13364 Venipuncture Draw Fee 16:52:15 [facility] CPT-39072 Venipuncture Draw Fee 10:37:24 [facility] CPT-69597 Venipuncture Draw Fee 08:21:21 [facility] CPT-82502 Venipuncture Draw Fee 08:30:20 [facility] CPT-88592 Venipuncture Draw Fee 14:53:21 [facility] CPT-15278 Venipuncture Draw Fee 09:40:56 [facility] CPT-90162 Venipuncture Draw Fee 10:30:47 [facility] CPT-08600 Venipuncture Draw Fee 10:46:17 [facility] CPT-70310 Venipuncture Draw Fee 11:12:45 [facility] CPT-82397 Venipuncture Draw Fee 09:53:33 [facility] CPT-45132 Venipuncture Draw Fee 11:53:51 [facility] CPT-88957 Venipuncture Draw Fee 10:33:50 [facility] CPT-80733 Venipuncture Draw Fee 10:05:01 [facility] CPT-93063 Venipuncture Draw Fee 14:32:52 [facility] CPT-35842 Venipuncture Draw Fee 09:46:13 [facility] CPT-47261 Venipuncture Draw Fee 11:34:27 [facility] CPT-75532 Venipuncture Draw Fee 13:17:16 [facility] CPT-11600 Venipuncture Draw Fee 12:05:39 CDT CPT-59903 Venipuncture Draw Fee 12:49:12 CDT CPT-60671 Venipuncture Draw Fee 12:37:18 CDT CPT-57375 Venipuncture Draw Fee 10:57:11 CDT CPT-11145 Venipuncture Draw Fee 13:47:40 CDT CPT-82352 Venipuncture Draw Fee 10:02:17 CDT CPT-12793 TB Tubersol 17:32:32 CDT CPT-OV Office Visit 16:21:53 CDT CPT-OV Office Visit 15:49:22 CDT CPT-OV Office Visit 17:16:31 CDT CPT-OV Office Visit 10:43:31 CDT
--- OUTSIDE RECORDS SUMMARY | 2019-02-09 11:55 | XMS REPORT | Clinical Summary ---
Author Author Admin, Florecita Munoz Organization [facility] Address Unknown Phone Unavailable Allergies, Adverse Reactions, [...] IN SITU OF BREAST 233.0 Inactive Kelsy Mckoen RMA Carcinoma in situ of breast Hx [...] Sebaceous cyst, scalp 706.2 Resolved Kylie Yokum [employer] Sebaceous cyst Cervical lymphadenopathy, anterior, left 785.6 Resolv ed Kylie Yokum [employer] Enlargement of lymph nodes Need for prophylactic vaccination and inoculation against in fluenza V04.81 Resolved Adam Yates MD Need for prophylactic vaccination and inoculation against influenza Preventive health care V70.0 Resolved Kylie Lundu m [employer] Routine general medical examination at a health care facility Thyroid nodule, left 241.0 Resolved Selena Yates MD Nontoxic uninodular goiter Screening mammogram V76.12 Resolved Kylie Yokum A PRN Other screening mammogram Mandy 706.2 Resolved Kylie Yokum [employer] Sebaceous cyst Colon cancer, ascending 153.6 Resolved Kylie Yok um [employer] Malignant neoplasm of ascending colon Foot pain, left 729.5 Resolved Kylie Yokum [employer] Pain in limb Splinter 919.6 Resolved Kylie Yokum [employer] Superficial foreign body (splinter) of other, multiple, and unspecified sites, without major open wound and without mention of infection Rash 782.1 Resolved Kylie Yokum [employer] Rash and other nonspecific skin eruption Cyst 706.2 Resolved Kylie Yokum [employer] Sebaceous cyst Body Mass Index 23.0-23.9 Adult Refinement 2017 Kylie Yokum [employer] Body Mass Index between 19-24, [...] MD PhD GERD ICD-530.81 Inactive Kylie Holt [employer] 2015 Health maintenance exam ICD-V70.0 Inactive Adolfo Yates MD Anemia ICD-285.9 Inactive Kylie Holt [employer] 07/24 Hypomagnesemia ICD-275.2 Inactive Kylie Holt [employer] Weakness ICD-780.79 Inactive Hope Benavidez [...] cyst, scalp ICD-706.2 Inactive Tracy hi Yokum [employer] Cervical lymphadenopathy, anterior, left ICD-785.6 Inactive Kylie Yokum [employer] Need for prophylactic vaccination and inoculation against in fluenza ICD-V04.81 Inactive Adam Yates MD Preventive health care ICD-V70.0 Inactive Ka thi Yokum [employer] Thyroid nodule, left ICD-241.0 Inactive Selena Yatse MD Screening mammogram ICD-V76.12 Inactive Kylie Yokum [employer] Mandy ICD-706.2 Inactive Kylie Yokum [employer] 07/20 Colon cancer, ascending ICD-153.6 Inactive K athi Yokum [employer] Foot pain, left ICD-729.5 Inactive Kylie Yokum [employer] Splinter ICD-919.6 Inactive Kylie Yokum [employer] 2017 Rash ICD-782.1 Inactive Kylie Yokum [employer] 07/25 Cyst ICD-706.2 Inactive Kylie Yokum [employer] 08/11 Unspecified fall, initial encounter ICD-E888.9 Inactive Kylie Yokum [employer] Eye pain, left ICD-379.91 Inactive Kylie Yokum [employer] Pharyngitis, acute ICD-074.0 Inactive Kavin Yates MD [...] arm as needed for pain DICLOFENAC SODIUM 03377756359 Active Kylie Holt APR N Active IMODIUM A-D 2 MG ORAL TABLET 1 tablet twice a day LOPERAMIDE HCL 41161372087 Active Kylie Holt APRN Active COQ10 100 MG ORAL CAPSULE 1 daily COENZYME Q10 857955 84850 Active Fay Alberts [facility] Active VITAMIN D3 2000 UNIT ORAL CAPSULE Melaleuca-One daily CHOLECALCIFEROL 04069647737 Active Kylie Holt APRN Active PROBIOTIC DAILY ORAL CAPSULE Take one daily PROBIO TIC PRODUCT 93265232298 Active Kylie Holt APRN Active IRON 325 (65 Fe) MG ORAL TABLET 1 every other day FERROUS SULFATE 08832888140 No Longer Active Kylie Holt APRN Active FLORANEX ORAL PACKET 1 pack three times daily, for bowel health LACTOBACILLUS 31110478855 No Longer Active Kylie Holt APRN Active LOMOTIL 2.5-0.025 MG ORAL TABLET 1 tab by mouth prn 23/10/23 DIPHENOXYLATE-ATROPINE 17546994069 No Longer Active Kylie Lundum AMY Active MAGNESIUM GLUCONATE 250 MG ORAL TABLET 1 tab tid 23/10/23 MAGNESIUM GLUCONATE 35159276803 No Longer Active Kylie Holt APRN Active CYANOCOBALAMIN 1000 MCG/ML INJECTION SOLUTION 1 injection ev ruben 2 weeks CYANOCOBALAMIN 22302903661 No Longer Active Kylie Lund um [employer] Active ATENOLOL 25 MG ORAL TABLET 1/2 pill by mouth daily, fo r headaches, blood pressure ATENOLOL 66786841087 Active Kylie Holt [employer] Active PROPRANOLOL HCL 80 MG ORAL TABLET 1 tab tue. and thur. PROPRANOLOL HCL 84682146471 No Longer Active Hope Benavidez MD PhD A ctive VITAMIN D3 4000 IU 1 tab 3 times daily VITAMIN D3 4000 IU No Longer Active Hope Benavidez MD PhD Active BACTRIM DS 800-160 MG ORAL TABLET 1 pill by mouth twice claudio y, for UTI SULFAMETHOXAZOLE-TRIMETHOPRIM 53696999414 No Longer Active Hope Benavidez MD PhD Active PROLIA 60 MG/ML SUBCUTANEOUS SOLUTION 1 shot every 6 months for osteoprosis DENOSUMAB 65974744642 Active Hope Benavidez MD PhD Active CALCIUM + D + K 750-500-40 MG-UNT-MCG ORAL TABLET 1 tab by m [facility] twice daily CALCIUM-VITAMIN D-VITAMIN K 71398546278 Active Hope valdez MD PhD Active DAILY VALUE MULTIVITAMIN ORAL TABLET 1 tab by mouth twice daily 201 05/16/14 MULTIPLE VITAMIN 79576217330 Active Hope Benavidez MD PhD Acti ve FISH OIL 306 MG CAPS 1 tab by mouth three times daily OMEGA-3 FATTY ACIDS 57961551005 Active Hope Benavidez MD PhD Active LUTEIN 10 MG ORAL TABLET 1 tab daily LUTEIN 54904029 408 Active Hope Benavidez MD PhD Active TRIAMTERENE-HCTZ 37.5-25 MG ORAL TABLET 1 tab by mouth daily 10/22 TRIAMTERENE-HCTZ 07795684419 Active Kylieshubham Lundoliver [employer] Active CYCLOBENZAPRINE HCL 10 MG ORAL TABLET 1 tablet by mout h three times daily as needed for headaches CYCLOBENZAPRINE HCL 10600162492 No Longer Active Adam Yates MD Active OMEPRAZOLE 20 MG ORAL CAPSULE DELAYED RELEASE 1 tablet by [facility] daily for GERD OMEPRAZOLE 53851860296 No Longer Active Adam Yates MD Active ZOFRAN 8 MG ORAL TABLET 1 tab by mouth every 12 hours prn 4 ONDANSETRON HCL 15157307733 No Longer Active Adam Yates MD Active PHENADOZ 25 MG RECTAL SUPPOSITORY 1 every 4 hrs. PRN 2 PROMETHAZINE HCL 61654078783 No Longer Active Adam Yates MD A ctive POTASSIUM CHLORIDE 20 MEQ ORAL PACKET by mouth twice a day prn 2 POTASSIUM CHLORIDE 63638164069 No Longer Active Adam Carpenter MD Active PROMETHAZINE HCL 25 MG ORAL TABLET 1 Q. 4 hr. PRN PROMETHAZINE HCL 97367871636 No Longer Active Adam Yates MD Active INNOPRAN XL 120 MG ORAL CAPSULE EXTENDED RELEASE 24 HO UR Take one by mouth daily PROPRANOLOL HCL SR BEADS 32633893579 No Longer Active Adam Yates MD Active FLAGYL 500 MG ORAL TABLET 1 pill by mouth three times daily, for diarrhea METRONIDAZOLE 28357686804 No Longer Active Hope landers MD PhD Active DYAZIDE 37.5-25 MG ORAL CAPSULE 1 qd TRIA MTERENE-HCTZ 42547658191 No Longer Active Hope Benavidez MD PhD Active PROZAC 20 MG ORAL CAPSULE 1 q d FLUOXETINE HCL 14092688304 No Longer Active Hope Benavidez MD PhD Active SIMVASTATIN 40 MG ORAL TABLET 1 qd SIMVAS TATIN 06282781736 No Longer Active Adam Yates MD Active MELOXICAM 15 MG ORAL TABLET 1 qd MELOXICAM 73183534807 No Longer Active Adam Yates MD Active EXCEDRIN EXTRA STRENGTH 250-250-65 MG ORAL TABLET 1-2 q6h LA N headache [id number] 86516993051 Active Hope Benavidez MD PhD Active FLAGYL 500 MG ORAL TABLET 1 qid METRONIDAZOL E 59270195985 No Longer Active Adam Yates MD Active LEVAQUIN 750 MG ORAL TABLET 1 qd LEVOFLOXAC IN 57064113266 No Longer Active Adam Yates MD Active ADULT ASPIRIN LOW STRENGTH 81 MG ORAL TABLET DISINTEGRATING 1 qd ASPIRIN 41726912074 Active Hope Benavidez MD PhD Active LEVAQUIN 750 MG ORAL TABLET 1 qd LEVAQUIN 750 MG ORAL TABLET 654775 LEVOFLOXACIN Inactive FLAGYL 500 MG ORAL TABLET 1 qid FLAGYL 500 MG ORAL TABLET 093898 METRONIDAZOLE Inactive MELOXICAM 15 MG ORAL TABLET 1 qd MELOXICAM 15 MG ORAL TABLET 027169 MELOXICAM Inactive SIMVASTATIN 40 MG ORAL TABLET 1 qd SIMVASTATIN 40 MG ORAL TABLET 537482 SIMVASTATIN Inactive PROZAC 20 MG ORAL CAPSULE 1 q d PROZAC 20 MG ORAL CAPSULE 730444 FLUOXETINE HCL Inactive DYAZIDE 37.5-25 MG ORAL CAPSULE 1 qd 5 DYAZIDE 37.5-25 MG ORAL CAPSULE 669499 TRIAMTERENE-HCTZ Inactive INNOPRAN XL 120 MG ORAL CAPSULE EXTENDED RELEASE 24 HO UR Take one by mouth daily INNOPRAN XL 120 MG ORAL CAPSULE EXTENDED RELEASE 24 HOUR PROPRANOLOL HCL SR BEADS Inactive PROMETHAZINE HCL 25 MG ORAL TABLET 1 Q. 4 hr. PRN 2013 PROMETHAZINE HCL 25 MG ORAL TABLET 711229 PROMETHAZINE HCL Inactive POTASSIUM CHLORIDE 20 MEQ ORAL PACKET by mouth twice a day prn 2 POTASSIUM CHLORIDE 20 MEQ ORAL PACKET 4773770 POTASSIUM CHLORIDE Inactive PHENADOZ 25 MG RECTAL SUPPOSITORY 1 every 4 hrs. PRN PHENADOZ 25 MG RECTAL SUPPOSITORY 575747 PROMETHAZINE HCL Inactive ZOFRAN 8 MG ORAL TABLET 1 tab by mouth every 12 hours prn 4 ZOFRAN 8 MG ORAL TABLET 655833 ONDANSETRON HCL Inactive OMEPRAZOLE 20 MG ORAL CAPSULE DELAYED RELEASE 1 tablet by mo uth daily for GERD OMEPRAZOLE 20 MG ORAL CAPSULE DELAYED RELEASE 19 8051 OMEPRAZOLE Inactive CYCLOBENZAPRINE HCL 10 MG ORAL TABLET 1 tablet by mout h three times daily as needed for headaches CYCLOBENZAPRINE HCL 10 MG ORAL TABLET 233466 CYCLOBENZAPRINE HCL Inactive VITAMIN D3 4000 IU 1 tab 3 times daily VITAMIN D3 4000 IU Inactive PROPRANOLOL HCL 80 MG ORAL TABLET 1 tab tue. and thur. PROPRANOLOL HCL 80 MG ORAL TABLET 812451 PROPRANOLOL HCL Inacti ve CYANOCOBALAMIN 1000 MCG/ML INJECTION SOLUTION 1 injection ev ruben 2 weeks CYANOCOBALAMIN 1000 MCG/ML INJECTION SOLUTION 30 9594 CYANOCOBALAMIN Inactive MAGNESIUM GLUCONATE 250 MG ORAL TABLET 1 tab tid 23/10/23 MAGNESIUM GLUCONATE 250 MG ORAL TABLET 537852 MAGNESIUM GLUCONATE Inactive LOMOTIL 2.5-0.025 MG ORAL TABLET 1 tab by mouth prn 23/10/23 LOMOTIL 2.5-0.025 MG ORAL TABLET 4143306 DIPHENOXYLATE-ATROPINE Inac tive FLORANEX ORAL PACKET 1 pack three times daily, for bowel health FLORANEX ORAL PACKET 84679936276 LACTOBACILLUS Inactive IRON 325 (65 Fe) MG ORAL TABLET 1 every other day 2015 IRON 325 (65 Fe) MG ORAL TABLET 152517 FERROUS SULFATE Inactive FLAGYL 500 MG ORAL TABLET 1 pill by mouth three times daily, for diarrhea FLAGYL 500 MG ORAL TABLET 133551 METRONIDAZOLE I nactive BACTRIM DS 800-160 MG ORAL TABLET 1 pill by mouth twice claudio y, for UTI BACTRIM DS 800-160 MG ORAL TABLET 709694 SULFAMETHOXAZOLE-TRIMETHOPRIM Inactive Advance Directives Directive Description Start [...] calcium, serum 9.1 mg/dL 8.5-10.1 Lab Report: CBC, Basic Metabolic Panel, MICROALB/CREAT W/RATIO, Lipid Pa ... - Chemistry sodium, serum 141 mmol/L 880-358 8901/01/10 potassium, serum 3.7 mmol/L 3.5-5.2 chloride, serum 101 mmol/L 98-107 carbon dioxide, venous blood 31.0 mmol/L 21.0-32 .0 blood glucose 96 mg/dL 65-95 calcium, serum 9.5 mg/dL 8.5-10.1 urea nitrogen, blood 21 mg/dL 7-18 creatinine, serum 1.40 mg/dL 0.60-1.30 Estimated Glomerular Filtration Rate (calc) 39 (?) mL/min/1.73m2 = OR > 60 mL/min cholesterol, serum 211 mg/dL 615-409 6992/01/10 triglyceride, serum, fasting 77 mg/dL 30-200 HDL [...] - Chem istry sodium, serum 142 mmol/L 843-051 6700/04/19 carbon dioxide, venous blood 30.2 mmol/L 21.0-32 .0 potassium, serum 3.8 mmol/L 3.5-5.2 chloride, serum 101 mmol/L 98-107 blood glucose 97 mg/dL 65-110 urea nitrogen, blood 23 mg/dL 7-18 creatinine, serum 1.33 mg/dL 0.60-1.30 alanine aminotransferase (SGPT), serum 27 U/L 12-78 aspartate aminotransferase (SGOT), serum 24 U/L 15-37 calcium, serum 9.4 mg/dL 8.5-10.1 bilirubin, serum, total 0.80 mg/dL 0.00-1.00 Lab Report: Renal Panel, Magnesium - Chelle radha sodium, serum 142 mmol/L 959-814 6263/11/02 potassium, serum 3.4 mmol/L 3.5-5.2 chloride, serum [...] mg/dL Encounters Code Encounter Date Provider Facility CPT-19991 Level 4 Est. Patient 15:35:24 ANIMAL CYTOLOGIST Adam Yates MD [facility] CPT-26534 Level 3 New Patient 12:08:54 ANIMAL CYTOLOGIST Adam Yates MD [facility] CPT-35682 [id number] Vst-Est Level IV 19:48:30 ANIMAL CYTOLOGIST Tracy jalloh [facility] CPT-12780 [id number] Vst-Est Level III 14:29:19 CDT Fiorella Holt [facility] CPT-33047 Level 2 Est. Patient 14:58:26 CDT Kylie Escalonagabbi [facility] CPT-84415 Level 3 Est. Patient 08:15:24 ANIMAL CYTOLOGIST Kylieshubham Lund [facility] CPT-55423 Level 2 Est. Patient 14:27:16 ANIMAL CYTOLOGIST Kylie boyd [facility] CPT-65657 Level 3 Est. Patient 17:54:48 CDT Kylie boyd [facility] CPT-40572 Level 3 Est. Patient 16:26:30 CDT Kinachrista blackmon [facility] CPT-74426 Level 3 New Patient 16:22:01 ANIMAL CYTOLOGIST Adam Yates MD [facility] CPT-20388 Level 4 Est. Patient 17:00:48 CDT Kylie boyd [facility] CPT-37646 Level 3 Est. Patient 13:15:54 CDT Kylie boy[facility] CPT-60676 Level 3 Est. Patient 09:10:11 CDT Kylie boyd [facility] CPT-21480 Level 4 Est. Patient 12:08:30 ANIMAL CYTOLOGIST Hope cohn MD [facility] CPT-93480 Level 4 Est. Patient 19:08:42 ANIMAL CYTOLOGIST Hope cohn MD [facility] CPT-97383 Level 4 Est. Patient 20:04:51 CDT Hope cohn MD [facility] CPT-46293 Level 3 New Patient 01:46:11 ANIMAL CYTOLOGIST Hope landers MD [facility] Procedures Code Procedure Name Date Entry Date Standard Desc ription CPT-49434 Postop F/U Visit 15:45:41 CDT CPT-39383 Sono Soft Tissue Head and Neck - XRAY US E ONLY 11:56:06 ANIMAL CYTOLOGIST CPT-54578 Abx/Therapy Injection 09:40:08 ANIMAL CYTOLOGIST CPT-J0897 Prolia 60 mg 09:40:08 ANIMAL CYTOLOGIST CPT-76047 First Vx - Ix admin for Medicare patients 02/08 10:02:45 CDT CPT-24948 Fluzone Quadrivalent Intramuscular Suspe nsion 0.5 ML 10:02:45 CDT CPT-34728 Magnesium - LAB USE ONLY 09:41:00 CDT 12/09 CPT-85823 Renal Panel - LAB USE ONLY 09:41:00 CDT 201 09/17/01 CPT-90234 Venipuncture Draw Fee 09:41:00 CDT CPT-52210 Calcium - LAB USE ONLY 17:25:11 CDT CPT-J0897 Prolia 60 mg 15:10:59 CDT CPT-24440 Abx/Therapy Injection 15:10:59 CDT CPT-G0439 Subsequent Annual Wellness Exam 14:29:19 CDT CPT-05999 Venipuncture Draw Fee 10:59:04 CDT CPT-82354 CMP - LAB USE ONLY 10:59:04 CDT CPT-80402 CBC with Diff - LAB USE ONLY 10:59:03 CDT 2 CPT-J0897 Prolia 60 mg 15:46:54 ANIMAL CYTOLOGIST CPT-66145 Abx/Therapy Injection 15:46:54 ANIMAL CYTOLOGIST CPT-83994 Microalbumin - LAB USE ONLY 09:41:32 ANIMAL CYTOLOGIST 20 23/01/15 CPT-80162 Free T4 - LAB USE ONLY 09:41:32 ANIMAL CYTOLOGIST CPT-91882 TSH - LAB USE ONLY 09:41:32 ANIMAL CYTOLOGIST CPT-66835 BMP - LAB USE ONLY 09:41:32 ANIMAL CYTOLOGIST CPT-01039 Venipuncture Draw Fee 09:41:32 ANIMAL CYTOLOGIST CPT-28733 First Vx - Ix admin for Medicare patients 11:19:30 CDT CPT-49309 Fluzone High-Dose Intramuscular Suspension 12/07 11:19:30 CDT CPT-J0897 Prolia 60 mg 14:55:42 CDT CPT-61099 Abx/Therapy Injection 14:55:42 CDT CPT-33692 Bone Density - XRAY USE ONLY 10:27:12 CDT 2 CPT-G0439 Subsequent Annual Wellness Exam 17:54:53 CDT CPT-65238 Foot, left, comp min 3V - XRAY USE ONLY 12:22:49 CDT CPT-G0009 Administration of Pneumococcal Vaccine 3 12:18:00 CDT CPT-61109 Pneumovax 23 Injection Injectable 25 MCG /0.5ML 12:18:00 CDT CPT-J0897 Prolia 60 mg 14:14:16 ANIMAL CYTOLOGIST CPT-01804 Abx/Therapy Injection 14:14:15 ANIMAL CYTOLOGIST CPT-01825 Lipid - LAB USE ONLY 10:01:52 ANIMAL CYTOLOGIST 2 CPT-33839 Calcium - LAB USE ONLY 10:01:51 ANIMAL CYTOLOGIST CPT-57248 Venipuncture Draw Fee 10:01:51 ANIMAL CYTOLOGIST CPT-LR Lesion Removal 16:22:01 ANIMAL CYTOLOGIST CPT-47322 TSH - LAB USE ONLY 14:26:02 CDT CPT-98852 CMP - LAB USE ONLY 14:26:01 CDT CPT-75244 CBC with Diff - LAB USE ONLY 14:26:01 CDT 2 CPT-41280 Venipuncture Draw Fee 14:26:01 CDT CPT-66111 First Vx - Ix admin for Medicare patients 13:27:08 CDT CPT-29064 Fluzone High-Dose Intramuscular Suspension 11/26 13:27:08 CDT CPT-G0438 Initial Annual Wellness Exam 14:19:57 CD T CPT-G0009 Administration of Pneumococcal Vaccine 9 11:36:25 CDT CPT-04441 Prevnar 13 Intramuscular Suspension 1 1:36:25 CDT CPT-69127 Prevnar 13 Intramuscular Suspension 1 0:40:58 CDT CPT-J0897 Prolia 60 mg 10:37:16 CDT CPT-63111 Abx/Therapy Injection 10:37:16 CDT CPT-J0897 Prolia 60 mg 16:09:34 ANIMAL CYTOLOGIST CPT-J0897 Prolia 60 mg 11:10:35 ANIMAL CYTOLOGIST CPT-66844 Abx/Therapy Injection 11:10:35 ANIMAL CYTOLOGIST CPT-000 Give Appropriate Flu Vaccine 17:01:15 ANIMAL CYTOLOGIST 2 CPT-33226 Fluzone High Dose (65+) 15:03:08 ANIMAL CYTOLOGIST 02/15 CPT-12363 Immunization Single Admin 15:03:08 ANIMAL CYTOLOGIST 2014 CPT-OV Office Visit 15:58:06 CDT CPT-J0897 Prolia 60 mg 08:45:38 CDT CPT-28909 Abx/Therapy Injection 08:45:38 CDT CPT-J3420 Vitamin B12 1000mcg (Cyanocobalamin) 09:26:20 ANIMAL CYTOLOGIST CPT-68057 Abx/Therapy Injection 09:26:20 ANIMAL CYTOLOGIST CPT-J3420 Vitamin B12 1000mcg (Cyanocobalamin) 09:44:40 ANIMAL CYTOLOGIST CPT-06635 Abx/Therapy Injection 09:44:40 ANIMAL CYTOLOGIST CPT-J3420 Vitamin B12 1000mcg (Cyanocobalamin) 09:15:54 ANIMAL CYTOLOGIST CPT-57751 Abx/Therapy Injection 09:15:54 ANIMAL CYTOLOGIST CPT-J3420 Vitamin B12 1000mcg (Cyanocobalamin) 09:46:44 ANIMAL CYTOLOGIST CPT-00767 Abx/Therapy Injection 09:46:44 ANIMAL CYTOLOGIST CPT-J3420 Vitamin B12 1000mcg (Cyanocobalamin) 09:47:34 ANIMAL CYTOLOGIST CPT-55065 Abx/Therapy Injection 09:47:34 ANIMAL CYTOLOGIST CPT-J3420 Vitamin B12 1000mcg (Cyanocobalamin) 14:35:50 ANIMAL CYTOLOGIST CPT-J3420 Vitamin B12 1000mcg (Cyanocobalamin) 09:25:05 ANIMAL CYTOLOGIST CPT-71420 Abx/Therapy Injection 09:25:05 ANIMAL CYTOLOGIST CPT-G0008 Administration of Influenza Virus Vaccine 13:36:47 CDT CPT-10359 Fluzone High-Dose Intramuscular Suspension 11/15 13:36:47 CDT CPT-J0897 Prolia 60 mg 08:50:41 CDT CPT-40494 Abx/Therapy Injection 08:50:41 CDT CPT-18204 Bone Density 12:06:12 CDT CPT-18269 Bone Density 08:54:40 CDT CPT-OV Office Visit 15:37:02 CDT CPT-66764 Postop F/U Visit 15:47:49 CDT CPT-75945 Postop F/U Visit 15:21:02 CDT CPT-[facility] Transitional Care Mgmt-High 07:52:27 CDT 20 20/06/01 CPT-60002 Venipuncture Draw Fee 13:51:18 CDT CPT-45558 Venipuncture Draw Fee 10:14:55 ANIMAL CYTOLOGIST 2014/02/ 18 CPT-94397 Venipuncture Draw Fee 13:39:45 ANIMAL CYTOLOGIST CPT-OV Office Visit 15:11:22 ANIMAL CYTOLOGIST CPT-40543 Venipuncture Draw Fee 09:20:49 ANIMAL CYTOLOGIST CPT-72697 Venipuncture Draw Fee 16:52:15 ANIMAL CYTOLOGIST CPT-40258 Venipuncture Draw Fee 10:37:24 ANIMAL CYTOLOGIST CPT-69924 Venipuncture Draw Fee 08:21:21 ANIMAL CYTOLOGIST CPT-04798 Venipuncture Draw Fee 08:30:20 ANIMAL CYTOLOGIST CPT-14610 Venipuncture Draw Fee 14:53:21 ANIMAL CYTOLOGIST CPT-41748 Venipuncture Draw Fee 09:40:56 ANIMAL CYTOLOGIST CPT-25905 Venipuncture Draw Fee 10:30:47 ANIMAL CYTOLOGIST CPT-40875 Venipuncture Draw Fee 10:46:17 ANIMAL CYTOLOGIST CPT-69052 Venipuncture Draw Fee 11:12:45 ANIMAL CYTOLOGIST CPT-97215 Venipuncture Draw Fee 09:53:33 ANIMAL CYTOLOGIST CPT-16259 Venipuncture Draw Fee 11:53:51 ANIMAL CYTOLOGIST CPT-18586 Venipuncture Draw Fee 10:33:50 ANIMAL CYTOLOGIST CPT-29176 Venipuncture Draw Fee 10:05:01 ANIMAL CYTOLOGIST CPT-84922 Venipuncture Draw Fee 14:32:52 ANIMAL CYTOLOGIST CPT-15192 Venipuncture Draw Fee 09:46:13 ANIMAL CYTOLOGIST CPT-43891 Venipuncture Draw Fee 11:34:27 ANIMAL CYTOLOGIST CPT-89224 Venipuncture Draw Fee 13:17:16 ANIMAL CYTOLOGIST CPT-17517 Venipuncture Draw Fee 12:05:39 CDT CPT-21579 Venipuncture Draw Fee 12:49:12 CDT CPT-53364 Venipuncture Draw Fee 12:37:18 CDT CPT-00990 Venipuncture Draw Fee 10:57:11 CDT CPT-66935 Venipuncture Draw Fee 13:47:40 CDT CPT-84196 Venipuncture Draw Fee 10:02:17 CDT CPT-37535 TB Tubersol 17:32:32 CDT CPT-OV Office Visit 16:21:53 CDT CPT-OV Office Visit 15:49:22 CDT CPT-OV Office Visit 17:16:31 CDT CPT-OV Office Visit 10:43:31 CDT
--- OUTSIDE RECORDS SUMMARY | 2019-02-09 11:55 | XMS REPORT | Clinical Summary ---
Author Author Admin, Florecita Munoz Organization [facility] Address Unknown Phone Unavailable Allergies, Adverse Reactions, [...] Sebaceous cyst, scalp 706.2 Resolved Kylie Yokum ACADEMY EDUCATION DIRECTOR Sebaceous cyst Cervical lymphadenopathy, anterior, left 785.6 Resolv ed Kylie Yokum ACADEMY EDUCATION DIRECTOR Enlargement of lymph nodes Need for prophylactic vaccination and inoculation against in fluenza V04.81 Resolved Adam Yates MD Need for prophylactic vaccination and inoculation against influenza Preventive health care V70.0 Resolved Kylie Lundu m ACADEMY EDUCATION DIRECTOR Routine general medical examination at a health care facility Thyroid nodule, left 241.0 Resolved Selena Yates MD Nontoxic uninodular goiter Screening mammogram V76.12 Resolved Kylie Yokum A PRN Other screening mammogram Mandy 706.2 Resolved Kylie Yokum ACADEMY EDUCATION DIRECTOR Sebaceous cyst Colon cancer, ascending 153.6 Resolved Kylie Yok um ACADEMY EDUCATION DIRECTOR Malignant neoplasm of ascending colon Foot pain, left 729.5 Resolved Kylie Yokum ACADEMY EDUCATION DIRECTOR Pain in limb Splinter 919.6 Resolved Kylie Yokum ACADEMY EDUCATION DIRECTOR Superficial foreign body (splinter) of other, multiple, and unspecified sites, without major open wound and without mention of infection Rash 782.1 Resolved Kylie Yokum ACADEMY EDUCATION DIRECTOR Rash and other nonspecific skin eruption Cyst 706.2 Resolved Kylie Yokum ACADEMY EDUCATION DIRECTOR Sebaceous cyst Body Mass Index 23.0-23.9 Adult Refinement 2017 Kylie Yokum ACADEMY EDUCATION DIRECTOR Body Mass Index between 19-24, adult [...] MD PhD GERD ICD-530.81 Inactive Kylie Holt ACADEMY EDUCATION DIRECTOR 2015 Health maintenance exam ICD-V70.0 Inactive Adolfo Yates MD Anemia ICD-285.9 Inactive Kylie Holt ACADEMY EDUCATION DIRECTOR 07/24 Hypomagnesemia ICD-275.2 Inactive Kylie Holt ACADEMY EDUCATION DIRECTOR Weakness ICD-780.79 Inactive Hope Benavidez MD [...] cyst, scalp ICD-706.2 Inactive Tracy hi Yokum ACADEMY EDUCATION DIRECTOR Cervical lymphadenopathy, anterior, left ICD-785.6 Inactive Kylie Yokum ACADEMY EDUCATION DIRECTOR Need for prophylactic vaccination and inoculation against in fluenza ICD-V04.81 Inactive Adam Yates MD Preventive health care ICD-V70.0 Inactive Ka thi Yokum ACADEMY EDUCATION DIRECTOR Thyroid nodule, left ICD-241.0 Inactive Selena Yates MD Screening mammogram ICD-V76.12 Inactive Kylie Yokum ACADEMY EDUCATION DIRECTOR Mandy ICD-706.2 Inactive Kylie Yokum ACADEMY EDUCATION DIRECTOR 07/20 Colon cancer, ascending ICD-153.6 Inactive K athi Yokum ACADEMY EDUCATION DIRECTOR Foot pain, left ICD-729.5 Inactive Kylie Yokum ACADEMY EDUCATION DIRECTOR Splinter ICD-919.6 Inactive Kylie Yokum ACADEMY EDUCATION DIRECTOR 2017 Rash ICD-782.1 Inactive Kylie Yokum ACADEMY EDUCATION DIRECTOR 07/25 Cyst ICD-706.2 Inactive Kylie Yokum ACADEMY EDUCATION DIRECTOR 08/11 Unspecified fall, initial encounter ICD-E888.9 Inactive Kylie Yokum ACADEMY EDUCATION DIRECTOR Eye pain, left ICD-379.91 Inactive Kylie Yokum ACADEMY EDUCATION DIRECTOR Pharyngitis, acute ICD-074.0 Inactive Kavin Yates MD [...] arm as needed for pain DICLOFENAC SODIUM 12083803439 Active Kylie Holt APR N Active IMODIUM A-D 2 MG ORAL TABLET 1 tablet twice a day LOPERAMIDE HCL 59132646703 Active Kylie Holt APRN Active COQ10 100 MG ORAL CAPSULE 1 daily COENZYME Q10 095456 18676 Active Fay Alberts [facility] Active VITAMIN D3 2000 UNIT ORAL CAPSULE Melaleuca-One daily CHOLECALCIFEROL 44917087486 Active Kylie Holt APRN Active PROBIOTIC DAILY ORAL CAPSULE Take one daily PROBIO TIC PRODUCT 31988538759 Active Kylie Holt APRN Active IRON 325 (65 Fe) MG ORAL TABLET 1 every other day FERROUS SULFATE 69188264153 No Longer Active Kylie Holt APRN Active FLORANEX ORAL PACKET 1 pack three times daily, for bowel health LACTOBACILLUS 44928569089 No Longer Active Kylie Holt APRN Active LOMOTIL 2.5-0.025 MG ORAL TABLET 1 tab by mouth prn 23/10/23 DIPHENOXYLATE-ATROPINE 98781595309 No Longer Active Kylie Lundum AMY Active MAGNESIUM GLUCONATE 250 MG ORAL TABLET 1 tab tid 23/10/23 MAGNESIUM GLUCONATE 00358881831 No Longer Active Kylie Holt APRN Active CYANOCOBALAMIN 1000 MCG/ML INJECTION SOLUTION 1 injection ev ruben 2 weeks CYANOCOBALAMIN 40938449845 No Longer Active Kylie Lund um ACADEMY EDUCATION DIRECTOR Active ATENOLOL 25 MG ORAL TABLET 1/2 pill by mouth daily, fo r headaches, blood pressure ATENOLOL 89473418118 Active Kylie Holt ACADEMY EDUCATION DIRECTOR Active PROPRANOLOL HCL 80 MG ORAL TABLET 1 tab tue. and thur. PROPRANOLOL HCL 54517622734 No Longer Active Hope Benavidez MD PhD A ctive VITAMIN D3 4000 IU 1 tab 3 times daily VITAMIN D3 4000 IU No Longer Active Hope Benavidez MD PhD Active BACTRIM DS 800-160 MG ORAL TABLET 1 pill by mouth twice claudio y, for UTI SULFAMETHOXAZOLE-TRIMETHOPRIM 94181027812 No Longer Active Hope Benavidez MD PhD Active PROLIA 60 MG/ML SUBCUTANEOUS SOLUTION 1 shot every 6 months for osteoprosis DENOSUMAB 60476849581 Active Hope Benavidez MD PhD Active CALCIUM + D + K 750-500-40 MG-UNT-MCG ORAL TABLET 1 tab by m [facility] twice daily CALCIUM-VITAMIN D-VITAMIN K 33191507603 Active Hope valdez MD PhD Active DAILY VALUE MULTIVITAMIN ORAL TABLET 1 tab by mouth twice daily 201 05/16/14 MULTIPLE VITAMIN 50660851038 Active Hope Benavidez MD PhD Acti ve FISH OIL 306 MG CAPS 1 tab by mouth three times daily OMEGA-3 FATTY ACIDS 70999495228 Active Hope Benavidez MD PhD Active LUTEIN 10 MG ORAL TABLET 1 tab daily LUTEIN 84084821 408 Active Hope Benavidez MD PhD Active TRIAMTERENE-HCTZ 37.5-25 MG ORAL TABLET 1 tab by mouth daily 10/22 TRIAMTERENE-HCTZ 22236198934 Active Kylieshubham Lundoliver ACADEMY EDUCATION DIRECTOR Active CYCLOBENZAPRINE HCL 10 MG ORAL TABLET 1 tablet by mout h three times daily as needed for headaches CYCLOBENZAPRINE HCL 50490915970 No Longer Active Adam Yates MD Active OMEPRAZOLE 20 MG ORAL CAPSULE DELAYED RELEASE 1 tablet by mo [facility] daily for GERD OMEPRAZOLE 94898621148 No Longer Active Adam Yates MD Active ZOFRAN 8 MG ORAL TABLET 1 tab by mouth every 12 hours prn 4 ONDANSETRON HCL 05155743757 No Longer Active Adam Yates MD Active PHENADOZ 25 MG RECTAL SUPPOSITORY 1 every 4 hrs. PRN 2 PROMETHAZINE HCL 96430341652 No Longer Active Adam Yates MD A ctive POTASSIUM CHLORIDE 20 MEQ ORAL PACKET by mouth twice a day prn 2 POTASSIUM CHLORIDE 24564747752 No Longer Active Adam Carpenter MD Active PROMETHAZINE HCL 25 MG ORAL TABLET 1 Q. 4 hr. PRN PROMETHAZINE HCL 22553118869 No Longer Active Adam Yates MD Active INNOPRAN XL 120 MG ORAL CAPSULE EXTENDED RELEASE 24 HO UR Take one by mouth daily PROPRANOLOL HCL SR BEADS 10840233192 No Longer Active Adam Yates MD Active FLAGYL 500 MG ORAL TABLET 1 pill by mouth three times daily, for diarrhea METRONIDAZOLE 63249357995 No Longer Active Hope landers MD PhD Active DYAZIDE 37.5-25 MG ORAL CAPSULE 1 qd TRIA MTERENE-HCTZ 76066691837 No Longer Active Hope Benavidez MD PhD Active PROZAC 20 MG ORAL CAPSULE 1 q d FLUOXETINE HCL 30297292641 No Longer Active Hope Benavidez MD PhD Active SIMVASTATIN 40 MG ORAL TABLET 1 qd SIMVAS TATIN 48863560392 No Longer Active Aadm Yates MD Active MELOXICAM 15 MG ORAL TABLET 1 qd MELOXICAM 66025637631 No Longer Active Adam Yates MD Active EXCEDRIN EXTRA STRENGTH 250-250-65 MG ORAL TABLET 1-2 q6h IL N headache [id number] 95189926822 Active Hope Benavidez MD PhD Active FLAGYL 500 MG ORAL TABLET 1 qid METRONIDAZOL E 99829301686 No Longer Active Adam Yates MD Active LEVAQUIN 750 MG ORAL TABLET 1 qd LEVOFLOXAC IN 99901465365 No Longer Active Adam Yates MD Active ADULT ASPIRIN LOW STRENGTH 81 MG ORAL TABLET DISINTEGRATING 1 qd ASPIRIN 95162190290 Active Hope Benavidez MD PhD Active LEVAQUIN 750 MG ORAL TABLET 1 qd LEVAQUIN 750 MG ORAL TABLET 323370 LEVOFLOXACIN Inactive FLAGYL 500 MG ORAL TABLET 1 qid FLAGYL 500 MG ORAL TABLET 384818 METRONIDAZOLE Inactive MELOXICAM 15 MG ORAL TABLET 1 qd MELOXICAM 15 MG ORAL TABLET 075257 MELOXICAM Inactive SIMVASTATIN 40 MG ORAL TABLET 1 qd SIMVASTATIN 40 MG ORAL TABLET 170998 SIMVASTATIN Inactive PROZAC 20 MG ORAL CAPSULE 1 q d PROZAC 20 MG ORAL CAPSULE 234969 FLUOXETINE HCL Inactive DYAZIDE 37.5-25 MG ORAL CAPSULE 1 qd 5 DYAZIDE 37.5-25 MG ORAL CAPSULE 306579 TRIAMTERENE-HCTZ Inactive INNOPRAN XL 120 MG ORAL CAPSULE EXTENDED RELEASE 24 HO UR Take one by mouth daily INNOPRAN XL 120 MG ORAL CAPSULE EXTENDED RELEASE 24 HOUR PROPRANOLOL HCL SR BEADS Inactive PROMETHAZINE HCL 25 MG ORAL TABLET 1 Q. 4 hr. PRN 2013 PROMETHAZINE HCL 25 MG ORAL TABLET 495492 PROMETHAZINE HCL Inactive POTASSIUM CHLORIDE 20 MEQ ORAL PACKET by mouth twice a day prn 2 POTASSIUM CHLORIDE 20 MEQ ORAL PACKET 6933086 POTASSIUM CHLORIDE Inactive PHENADOZ 25 MG RECTAL SUPPOSITORY 1 every 4 hrs. PRN PHENADOZ 25 MG RECTAL SUPPOSITORY 788576 PROMETHAZINE HCL Inactive ZOFRAN 8 MG ORAL TABLET 1 tab by mouth every 12 hours prn 4 ZOFRAN 8 MG ORAL TABLET 882620 ONDANSETRON HCL Inactive OMEPRAZOLE 20 MG ORAL CAPSULE DELAYED RELEASE 1 tablet by mo uth daily for GERD OMEPRAZOLE 20 MG ORAL CAPSULE DELAYED RELEASE 19 8051 OMEPRAZOLE Inactive CYCLOBENZAPRINE HCL 10 MG ORAL TABLET 1 tablet by mout h three times daily as needed for headaches CYCLOBENZAPRINE HCL 10 MG ORAL TABLET 891310 CYCLOBENZAPRINE HCL Inactive VITAMIN D3 4000 IU 1 tab 3 times daily VITAMIN D3 4000 IU Inactive PROPRANOLOL HCL 80 MG ORAL TABLET 1 tab tue. and thur. PROPRANOLOL HCL 80 MG ORAL TABLET 377675 PROPRANOLOL HCL Inacti ve CYANOCOBALAMIN 1000 MCG/ML INJECTION SOLUTION 1 injection ev ruben 2 weeks CYANOCOBALAMIN 1000 MCG/ML INJECTION SOLUTION 30 9594 CYANOCOBALAMIN Inactive MAGNESIUM GLUCONATE 250 MG ORAL TABLET 1 tab tid 23/10/23 MAGNESIUM GLUCONATE 250 MG ORAL TABLET 325136 MAGNESIUM GLUCONATE Inactive LOMOTIL 2.5-0.025 MG ORAL TABLET 1 tab by mouth prn 23/10/23 LOMOTIL 2.5-0.025 MG ORAL TABLET 5831028 DIPHENOXYLATE-ATROPINE Inac tive FLORANEX ORAL PACKET 1 pack three times daily, for bowel health FLORANEX ORAL PACKET 95639977678 LACTOBACILLUS Inactive IRON 325 (65 Fe) MG ORAL TABLET 1 every other day 2015 IRON 325 (65 Fe) MG ORAL TABLET 082062 FERROUS SULFATE Inactive FLAGYL 500 MG ORAL TABLET 1 pill by mouth three times daily, for diarrhea FLAGYL 500 MG ORAL TABLET 079336 METRONIDAZOLE I nactive BACTRIM DS 800-160 MG ORAL TABLET 1 pill by mouth twice claudio y, for UTI BACTRIM DS 800-160 MG ORAL TABLET 103537 SULFAMETHOXAZOLE-TRIMETHOPRIM Inactive Advance Directives Directive Description Start [...] ... - Chemistry sodium, serum 141 mmol/L 935-954 1887/01/10 potassium, serum 3.7 mmol/L 3.5-5.2 chloride, serum 101 mmol/L 98-107 carbon dioxide, venous blood 31.0 mmol/L 21.0-32 .0 blood glucose 96 mg/dL 65-95 calcium, serum 9.5 mg/dL 8.5-10.1 urea nitrogen, blood 21 mg/dL 7-18 creatinine, serum 1.40 mg/dL 0.60-1.30 Estimated Glomerular Filtration Rate (calc) 39 (?) mL/min/1.73m2 = OR > 60 mL/min cholesterol, serum 211 mg/dL 568-079 9554/01/10 triglyceride, serum, fasting 77 mg/dL 30-200 HDL [...] - Chem istry sodium, serum 142 mmol/L 336-090 4834/04/19 carbon dioxide, venous blood 30.2 mmol/L 21.0-32 [...] - Chelle radha sodium, serum 142 mmol/L 272-047 3564/11/02 potassium, serum 3.4 mmol/L 3.5-5.2 chloride, serum [...] mg/dL Encounters Code Encounter Date Provider Facility CPT-78471 Level 4 Est. Patient 15:35:24 PLASTICS FACTORY WORKER Adam Yates MD [facility] CPT-69606 Level 3 New Patient 12:08:54 PLASTICS FACTORY WORKER Adam Yates MD [facility] CPT-10465 [id number] Vst-Est Level IV 19:48:30 PLASTICS FACTORY WORKER Tracy jalloh Polapari [facility] [place] CPT-55856 [id number] Vst-Est Level III 14:29:19 CDT Fiorella Holt [facility] [place] CPT-42607 Level 2 Est. Patient 14:58:26 CDT Kylie Escalonagabbi [facility] [place] CPT-19355 Level 3 Est. Patient 08:15:24 PLASTICS FACTORY WORKER Kylieshubham Lund [facility] [place] CPT-81926 Level 2 Est. Patient 14:27:16 PLASTICS FACTORY WORKER Kylie boyd [facility] [place] CPT-60281 Level 3 Est. Patient 17:54:48 CDT Kylie boyd [facility] [place] CPT-20410 Level 3 Est. Patient 16:26:30 CDT Kinachrista blackmon [facility] CPT-92716 Level 3 New Patient 16:22:01 PLASTICS FACTORY WORKER Adam Yates MD [facility] CPT-56708 Level 4 Est. Patient 17:00:48 CDT Kylie boyd [facility] [place] CPT-63287 Level 3 Est. Patient 13:15:54 CDT Kylie boyd [facility] CPT-83123 Level 3 Est. Patient 09:10:11 CDT Kylie boyd [facility] CPT-70481 Level 4 Est. Patient 12:08:30 PLASTICS FACTORY WORKER Hope cohn MD [facility] CPT-04791 Level 4 Est. Patient 19:08:42 PLASTICS FACTORY WORKER Hope cohn MD [facility] CPT-73392 Level 4 Est. Patient 20:04:51 CDT Hope cohn MD [facility] CPT-35745 Level 3 New Patient 01:46:11 PLASTICS FACTORY WORKER Hope landers MD [facility] Procedures Code Procedure Name Date Entry Date Standard Desc ription CPT-23911 Postop F/U Visit 15:45:41 CDT CPT-78891 Sono Soft Tissue Head and Neck - XRAY US E ONLY 11:56:06 PLASTICS FACTORY WORKER CPT-14353 Abx/Therapy Injection 09:40:08 PLASTICS FACTORY WORKER CPT-J0897 Prolia 60 mg 09:40:08 PLASTICS FACTORY WORKER CPT-66518 First Vx - Ix admin for Medicare patients 02/08 10:02:45 CDT CPT-23520 Fluzone Quadrivalent Intramuscular Suspe nsion 0.5 ML 10:02:45 CDT CPT-81364 Magnesium - LAB USE ONLY 09:41:00 CDT 12/09 CPT-68461 Renal Panel - LAB USE ONLY 09:41:00 CDT 201 09/17/01 CPT-95864 Venipuncture Draw Fee 09:41:00 CDT CPT-39959 Calcium - LAB USE ONLY 17:25:11 CDT CPT-J0897 Prolia 60 mg 15:10:59 CDT CPT-98810 Abx/Therapy Injection 15:10:59 CDT CPT-G0439 Subsequent Annual Wellness Exam 14:29:19 CDT CPT-82037 Venipuncture Draw Fee 10:59:04 CDT CPT-82804 CMP - LAB USE ONLY 10:59:04 CDT CPT-04523 CBC with Diff - LAB USE ONLY 10:59:03 CDT 2 CPT-J0897 Prolia 60 mg 15:46:54 PLASTICS FACTORY WORKER CPT-89285 Abx/Therapy Injection 15:46:54 PLASTICS FACTORY WORKER CPT-29350 Microalbumin - LAB USE ONLY 09:41:32 PLASTICS FACTORY WORKER 20 23/01/15 CPT-06678 Free T4 - LAB USE ONLY 09:41:32 PLASTICS FACTORY WORKER CPT-56016 TSH - LAB USE ONLY 09:41:32 PLASTICS FACTORY WORKER CPT-65365 BMP - LAB USE ONLY 09:41:32 PLASTICS FACTORY WORKER CPT-16140 Venipuncture Draw Fee 09:41:32 PLASTICS FACTORY WORKER CPT-76085 First Vx - Ix admin for Medicare patients 11:19:30 CDT CPT-03219 Fluzone High-Dose Intramuscular Suspension 12/07 11:19:30 CDT CPT-J0897 Prolia 60 mg 14:55:42 CDT CPT-46491 Abx/Therapy Injection 14:55:42 CDT CPT-57361 Bone Density - XRAY USE ONLY 10:27:12 CDT 2 CPT-G0439 Subsequent Annual Wellness Exam 17:54:53 CDT CPT-03213 Foot, left, comp min 3V - XRAY USE ONLY 12:22:49 CDT CPT-G0009 Administration of Pneumococcal Vaccine 3 12:18:00 CDT CPT-33095 Pneumovax 23 Injection Injectable 25 MCG /0.5ML 12:18:00 CDT CPT-J0897 Prolia 60 mg 14:14:16 PLASTICS FACTORY WORKER CPT-81973 Abx/Therapy Injection 14:14:15 PLASTICS FACTORY WORKER CPT-28730 Lipid - LAB USE ONLY 10:01:52 PLASTICS FACTORY WORKER 2 CPT-00876 Calcium - LAB USE ONLY 10:01:51 PLASTICS FACTORY WORKER CPT-39374 Venipuncture Draw Fee 10:01:51 PLASTICS FACTORY WORKER CPT-LR Lesion Removal 16:22:01 PLASTICS FACTORY WORKER CPT-00104 TSH - LAB USE ONLY 14:26:02 CDT CPT-25014 CMP - LAB USE ONLY 14:26:01 CDT CPT-70711 CBC with Diff - LAB USE ONLY 14:26:01 CDT 2 CPT-74783 Venipuncture Draw Fee 14:26:01 CDT CPT-94411 First Vx - Ix admin for Medicare patients 13:27:08 CDT CPT-28231 Fluzone High-Dose Intramuscular Suspension 11/26 13:27:08 CDT CPT-G0438 Initial Annual Wellness Exam 14:19:57 CD T CPT-G0009 Administration of Pneumococcal Vaccine 9 11:36:25 CDT CPT-04958 Prevnar 13 Intramuscular Suspension 1 1:36:25 CDT CPT-21983 Prevnar 13 Intramuscular Suspension 1 0:40:58 CDT CPT-J0897 Prolia 60 mg 10:37:16 CDT CPT-41362 Abx/Therapy Injection 10:37:16 CDT CPT-J0897 Prolia 60 mg 16:09:34 PLASTICS FACTORY WORKER CPT-J0897 Prolia 60 mg 11:10:35 PLASTICS FACTORY WORKER CPT-69220 Abx/Therapy Injection 11:10:35 PLASTICS FACTORY WORKER CPT-000 Give Appropriate Flu Vaccine 17:01:15 PLASTICS FACTORY WORKER 2 CPT-15191 Fluzone High Dose (65+) 15:03:08 PLASTICS FACTORY WORKER 02/15 CPT-25875 Immunization Single Admin 15:03:08 PLASTICS FACTORY WORKER 2014 CPT-OV Office Visit 15:58:06 CDT CPT-J0897 Prolia 60 mg 08:45:38 CDT CPT-25964 Abx/Therapy Injection 08:45:38 CDT CPT-J3420 Vitamin B12 1000mcg (Cyanocobalamin) 09:26:20 PLASTICS FACTORY WORKER CPT-01462 Abx/Therapy Injection 09:26:20 PLASTICS FACTORY WORKER CPT-J3420 Vitamin B12 1000mcg (Cyanocobalamin) 09:44:40 PLASTICS FACTORY WORKER CPT-97167 Abx/Therapy Injection 09:44:40 PLASTICS FACTORY WORKER CPT-J3420 Vitamin B12 1000mcg (Cyanocobalamin) 09:15:54 PLASTICS FACTORY WORKER CPT-49056 Abx/Therapy Injection 09:15:54 PLASTICS FACTORY WORKER CPT-J3420 Vitamin B12 1000mcg (Cyanocobalamin) 09:46:44 PLASTICS FACTORY WORKER CPT-81990 Abx/Therapy Injection 09:46:44 PLASTICS FACTORY WORKER CPT-J3420 Vitamin B12 1000mcg (Cyanocobalamin) 09:47:34 PLASTICS FACTORY WORKER CPT-18594 Abx/Therapy Injection 09:47:34 PLASTICS FACTORY WORKER CPT-J3420 Vitamin B12 1000mcg (Cyanocobalamin) 14:35:50 PLASTICS FACTORY WORKER CPT-J3420 Vitamin B12 1000mcg (Cyanocobalamin) 09:25:05 PLASTICS FACTORY WORKER CPT-90159 Abx/Therapy Injection 09:25:05 PLASTICS FACTORY WORKER CPT-G0008 Administration of Influenza Virus Vaccine 13:36:47 CDT CPT-50480 Fluzone High-Dose Intramuscular Suspension 11/15 13:36:47 CDT CPT-J0897 Prolia 60 mg 08:50:41 CDT CPT-62411 Abx/Therapy Injection 08:50:41 CDT CPT-18171 Bone Density 12:06:12 CDT CPT-79318 Bone Density 08:54:40 CDT CPT-OV Office Visit 15:37:02 CDT CPT-15245 Postop F/U Visit 15:47:49 CDT CPT-16239 Postop F/U Visit 15:21:02 CDT CPT-[facility] Trans[facility] Mgmt-High 07:52:27 CDT 20 20/06/01 CPT-92107 Venipuncture Draw Fee 13:51:18 CDT CPT-67876 Venipuncture Draw Fee 10:14:55 PLASTICS FACTORY WORKER 2014/02/ 18 CPT-02310 Venipuncture Draw Fee 13:39:45 PLASTICS FACTORY WORKER CPT-OV Office Visit 15:11:22 PLASTICS FACTORY WORKER CPT-74770 Venipuncture Draw Fee 09:20:49 PLASTICS FACTORY WORKER CPT-95167 Venipuncture Draw Fee 16:52:15 PLASTICS FACTORY WORKER CPT-11393 Venipuncture Draw Fee 10:37:24 PLASTICS FACTORY WORKER CPT-77614 Venipuncture Draw Fee 08:21:21 PLASTICS FACTORY WORKER CPT-65753 Venipuncture Draw Fee 08:30:20 PLASTICS FACTORY WORKER CPT-15590 Venipuncture Draw Fee 14:53:21 PLASTICS FACTORY WORKER CPT-87038 Venipuncture Draw Fee 09:40:56 PLASTICS FACTORY WORKER CPT-53584 Venipuncture Draw Fee 10:30:47 PLASTICS FACTORY WORKER CPT-52744 Venipuncture Draw Fee 10:46:17 PLASTICS FACTORY WORKER CPT-47891 Venipuncture Draw Fee 11:12:45 PLASTICS FACTORY WORKER CPT-71641 Venipuncture Draw Fee 09:53:33 PLASTICS FACTORY WORKER CPT-26687 Venipuncture Draw Fee 11:53:51 PLASTICS FACTORY WORKER CPT-06165 Venipuncture Draw Fee 10:33:50 PLASTICS FACTORY WORKER CPT-36606 Venipuncture Draw Fee 10:05:01 PLASTICS FACTORY WORKER CPT-42146 Venipuncture Draw Fee 14:32:52 PLASTICS FACTORY WORKER CPT-30939 Venipuncture Draw Fee 09:46:13 PLASTICS FACTORY WORKER CPT-59280 Venipuncture Draw Fee 11:34:27 PLASTICS FACTORY WORKER CPT-14034 Venipuncture Draw Fee 13:17:16 PLASTICS FACTORY WORKER CPT-75780 Venipuncture Draw Fee 12:05:39 CDT CPT-37523 Venipuncture Draw Fee 12:49:12 CDT CPT-16598 Venipuncture Draw Fee 12:37:18 CDT CPT-56779 Venipuncture Draw Fee 10:57:11 CDT CPT-42007 Venipuncture Draw Fee 13:47:40 CDT CPT-46578 Venipuncture Draw Fee 10:02:17 CDT CPT-91321 TB Tubersol 17:32:32 CDT CPT-OV Office Visit 16:21:53 CDT CPT-OV Office Visit 15:49:22 CDT CPT-OV Office Visit 17:16:31 CDT CPT-OV Office Visit 10:43:31 CDT
--- OUTSIDE RECORDS SUMMARY | 2019-02-09 11:56 | XMS REPORT | Clinical Summary ---
Author Author Admin, Florecita Munoz Organization [facility]umb Address Unknown Phone Unavailable Allergies, Adverse Reactions, [...] Sebaceous cyst, scalp 706.2 Resolved Kylie Yokum HEMATOLOGY NURSE EDUCATOR Sebaceous cyst Cervical lymphadenopathy, anterior, left 785.6 Resolv ed Kylie Yokum HEMATOLOGY NURSE EDUCATOR Enlargement of lymph nodes Need for prophylactic vaccination and inoculation against in fluenza V04.81 Resolved Adam Yates MD Need for prophylactic vaccination and inoculation against influenza Preventive health care V70.0 Resolved Kylie Lundu m HEMATOLOGY NURSE EDUCATOR Routine general medical examination at a health care facility Thyroid nodule, left 241.0 Resolved Selena Yates MD Nontoxic uninodular goiter Screening mammogram V76.12 Resolved Kylie Yokum A PRN Other screening mammogram Mandy 706.2 Resolved Kylie Yokum HEMATOLOGY NURSE EDUCATOR Sebaceous cyst Colon cancer, ascending 153.6 Resolved Kylie Yok um HEMATOLOGY NURSE EDUCATOR Malignant neoplasm of ascending colon Foot pain, left 729.5 Resolved Kylie Yokum HEMATOLOGY NURSE EDUCATOR Pain in limb Splinter 919.6 Resolved Kylie Yokum HEMATOLOGY NURSE EDUCATOR Superficial foreign body (splinter) of other, multiple, and unspecified sites, without major open wound and without mention of infection Rash 782.1 Resolved Kylie Yokum HEMATOLOGY NURSE EDUCATOR Rash and other nonspecific skin eruption Cyst 706.2 Resolved Kylie Yokum HEMATOLOGY NURSE EDUCATOR Sebaceous cyst Body Mass Index 23.0-23.9 Adult Refinement 2017 Kylie Yokum HEMATOLOGY NURSE EDUCATOR Body Mass Index between 19-24, adult BMI [...] cohn MD PhD UNSPECIFIED VENOUS INSUFFICIENCY ICD-459.81 [place] ctive Adam Yates MD ADENOCARCINOMA, 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 Inac tive Hope Benavidez MD PhD Hyperkalemia ICD-276.7 Inactive Hope Benavidez MD PhD ABDOMINAL PAIN, RIGHT LOWER QUADRANT ICD-789.03 Inactive Kina Joshua HEMATOLOGY NURSE EDUCATOR Health maintenance exam ICD-V70.0 Inactive Adolfo Yates MD Anemia ICD-285.9 Inactive Kylie Yokum HEMATOLOGY NURSE EDUCATOR 07/24 GERD ICD-530.81 Inactive Kylie Yokum HEMATOLOGY NURSE EDUCATOR 2015 Weakness ICD-780.79 Inactive Hope Benavidez MD P hD Hypomagnesemia ICD-275.2 Inactive Kylie Kevonum HEMATOLOGY NURSE EDUCATOR Asymptomatic postmenopausal status (age-related) (natural) I CD-V49.81 Inactive Hope Benavidez MD PhD Colon cancer ICD-153.9 Inactive Adam luna MD Aftercare following surgery of the teeth,oral cavity a nd digestive system, NEC ICD-V58.75 Inactive Adam Yates MD Dysuria ICD-788.1 Inactive Hope Benavidez MD PhD 201 05/19/01 Adenocarcinoma, ascending colon ICD-153.6 Inac abdelrahman Yates MD Sebaceous cyst, scalp ICD-706.2 Inactive Tracy hi Yokum HEMATOLOGY NURSE EDUCATOR Cervical lymphadenopathy, anterior, left ICD-785.6 Inactive Kylie Yokum HEMATOLOGY NURSE EDUCATOR Need for prophylactic vaccination and inoculation against in fluenza ICD-V04.81 Inactive Adam Yates MD Diarrhea, functional ICD-564.5 Inactive Selena Yates MD Preventive health care ICD-V70.0 Inactive Ka thi Yokum HEMATOLOGY NURSE EDUCATOR Mandy ICD-706.2 Inactive Kylie Yokum HEMATOLOGY NURSE EDUCATOR 07/20 Colon cancer, ascending ICD-153.6 Inactive K athi Yokum HEMATOLOGY NURSE EDUCATOR Thyroid nodule, left ICD-241.0 Inactive Selena Yates MD Foot pain, left ICD-729.5 Inactive Kylie Yokum HEMATOLOGY NURSE EDUCATOR Splinter ICD-919.6 Inactive Kylie Yokum HEMATOLOGY NURSE EDUCATOR 2017 Rash ICD-782.1 Inactive Kylie Yokum HEMATOLOGY NURSE EDUCATOR 07/25 Cyst ICD-706.2 Inactive Kylie Yokum HEMATOLOGY NURSE EDUCATOR 08/11 Screening mammogram ICD-V76.12 Inactive Kylie Yokum HEMATOLOGY NURSE EDUCATOR Unspecified fall, initial encounter ICD-E888.9 Inactive Kylie Yokum HEMATOLOGY NURSE EDUCATOR Eye pain, left ICD-379.91 Inactive Kylie Yokum HEMATOLOGY NURSE EDUCATOR Pharyngitis, acute ICD-074.0 Inactive Kavin Yates MD [...] arm as needed for pain DICLOFENAC SODIUM [id number] Active Kylie Holt APR N Active IMODIUM A-D 2 MG ORAL TABLET 1 tablet twice a day LOPERAMIDE HCL 57297609406 Active Kylie Holt APRN Active COQ10 100 MG ORAL CAPSULE 1 daily COENZYME Q10 543223 60138 Active Fay Alberts [facility] Active VITAMIN D3 2000 UNIT ORAL CAPSULE Melaleuca-One daily CHOLECALCIFEROL 47718384989 Active Kylie Holt APRN Active PROBIOTIC DAILY ORAL CAPSULE Take one daily PROBIO TIC PRODUCT 59685672833 Active Kylie Holt APRN Active IRON 325 (65 Fe) MG ORAL TABLET 1 every other day FERROUS SULFATE 75332773115 No Longer Active Kylie Holt APRN Active FLORANEX ORAL PACKET 1 pack three times daily, for bowel health LACTOBACILLUS 44341277912 No Longer Active Kylie Holt APRN Active LOMOTIL 2.5-0.025 MG ORAL TABLET 1 tab by mouth prn 23/10/23 DIPHENOXYLATE-ATROPINE 40337342379 No Longer Active Kylie Lundum AMY Active MAGNESIUM GLUCONATE 250 MG ORAL TABLET 1 tab tid 23/10/23 MAGNESIUM GLUCONATE 08190796588 No Longer Active Kylie Holt APRN Active CYANOCOBALAMIN 1000 MCG/ML INJECTION SOLUTION 1 injection ev ruben 2 weeks CYANOCOBALAMIN 35036984209 No Longer Active Kylie Lund um HEMATOLOGY NURSE EDUCATOR Active ATENOLOL 25 MG ORAL TABLET 1/2 pill by mouth daily, fo r headaches, blood pressure ATENOLOL 63313557592 Active Kylie Holt HEMATOLOGY NURSE EDUCATOR Active PROPRANOLOL HCL 80 MG ORAL TABLET 1 tab tue. and thur. PROPRANOLOL HCL 34783258586 No Longer Active Hope Benavidez MD PhD A ctive VITAMIN D3 4000 IU 1 tab 3 times daily VITAMIN D3 4000 IU No Longer Active Hope Benavidez MD PhD Active BACTRIM DS 800-160 MG ORAL TABLET 1 pill by mouth twice claudio y, for UTI SULFAMETHOXAZOLE-TRIMETHOPRIM 05940683767 No Longer Active Hope Benavidez MD PhD Active PROLIA 60 MG/ML SUBCUTANEOUS SOLUTION 1 shot every 6 months for osteoprosis DENOSUMAB 41170618023 Active Hope Benavidez MD PhD Active CALCIUM + D + K 750-500-40 MG-UNT-MCG ORAL TABLET 1 tab by m [facility] twice daily CALCIUM-VITAMIN D-VITAMIN K 09331890575 Active Hope valdez MD PhD Active DAILY VALUE MULTIVITAMIN ORAL TABLET 1 tab by mouth twice daily 201 05/16/14 MULTIPLE VITAMIN 64513001082 Active Hope Benavidez MD PhD Acti ve FISH OIL 306 MG CAPS 1 tab by mouth three times daily OMEGA-3 FATTY ACIDS 33446409463 Active Hope Benavidez MD PhD Active LUTEIN 10 MG ORAL TABLET 1 tab daily LUTEIN 05659544 408 Active Hope Benavidez MD PhD Active TRIAMTERENE-HCTZ 37.5-25 MG ORAL TABLET 1 tab by mouth daily 10/22 TRIAMTERENE-HCTZ 22315004516 Active Kylieshubham Lundoliver HEMATOLOGY NURSE EDUCATOR Active CYCLOBENZAPRINE HCL 10 MG ORAL TABLET 1 tablet by mout h three times daily as needed for headaches CYCLOBENZAPRINE HCL 55444220609 No Longer Active Adam Yates MD Active OMEPRAZOLE 20 MG ORAL CAPSULE DELAYED RELEASE 1 tablet by mo [facility] daily for GERD OMEPRAZOLE 47441940587 No Longer Active Adam Yates MD Active ZOFRAN 8 MG ORAL TABLET 1 tab by mouth every 12 hours prn 4 ONDANSETRON HCL 62109458838 No Longer Active Adam Yates MD Active PHENADOZ 25 MG RECTAL SUPPOSITORY 1 every 4 hrs. PRN 2 PROMETHAZINE HCL 55616278206 No Longer Active Adam Yates MD A ctive POTASSIUM CHLORIDE 20 MEQ ORAL PACKET by mouth twice a day prn 2 POTASSIUM CHLORIDE 27196885310 No Longer Active Adam Carpenter MD Active PROMETHAZINE HCL 25 MG ORAL TABLET 1 Q. 4 hr. PRN PROMETHAZINE HCL 00608028351 No Longer Active Adam Yates MD Active INNOPRAN XL 120 MG ORAL CAPSULE EXTENDED RELEASE 24 HO UR Take one by mouth daily PROPRANOLOL HCL SR BEADS 86921912040 No Longer Active Adam Yates MD Active FLAGYL 500 MG ORAL TABLET 1 pill by mouth three times daily, for diarrhea METRONIDAZOLE 16786474640 No Longer Active Hope landers MD PhD Active DYAZIDE 37.5-25 MG ORAL CAPSULE 1 qd TRIA MTERENE-HCTZ 11515421218 No Longer Active Hope Benavidez MD PhD Active PROZAC 20 MG ORAL CAPSULE 1 q d FLUOXETINE HCL 61619921165 No Longer Active Hope Benavidez MD PhD Active SIMVASTATIN 40 MG ORAL TABLET 1 qd SIMVAS TATIN 96279289531 No Longer Active Adam Yates MD Active MELOXICAM 15 MG ORAL TABLET 1 qd MELOXICAM 36039236378 No Longer Active Adam Yates MD Active EXCEDRIN EXTRA STRENGTH 250-250-65 MG ORAL TABLET 1-2 q6h OK N headache DOPMHUH-AVEBCOKISSGMF-ZHLLVYZJ 11652497315 Active Hope Benavidez MD PhD Active FLAGYL 500 MG ORAL TABLET 1 qid METRONIDAZOL E 59561661397 No Longer Active Adam Yates MD Active LEVAQUIN 750 MG ORAL TABLET 1 qd LEVOFLOXAC IN 42107815379 No Longer Active Adam Yates MD Active ADULT ASPIRIN LOW STRENGTH 81 MG ORAL TABLET DISINTEGRATING 1 qd ASPIRIN 80432855337 Active Hope Benavidez MD PhD Active LEVAQUIN 750 MG ORAL TABLET 1 qd LEVAQUIN 750 MG ORAL TABLET 936449 LEVOFLOXACIN Inactive FLAGYL 500 MG ORAL TABLET 1 qid FLAGYL 500 MG ORAL TABLET 386509 METRONIDAZOLE Inactive MELOXICAM 15 MG ORAL TABLET 1 qd MELOXICAM 15 MG ORAL TABLET 783055 MELOXICAM Inactive SIMVASTATIN 40 MG ORAL TABLET 1 qd SIMVASTATIN 40 MG ORAL TABLET 164467 SIMVASTATIN Inactive PROZAC 20 MG ORAL CAPSULE 1 q d PROZAC 20 MG ORAL CAPSULE 258951 FLUOXETINE HCL Inactive DYAZIDE 37.5-25 MG ORAL CAPSULE 1 qd 5 DYAZIDE 37.5-25 MG ORAL CAPSULE 220103 TRIAMTERENE-HCTZ Inactive INNOPRAN XL 120 MG ORAL CAPSULE EXTENDED RELEASE 24 HO UR Take one by mouth daily INNOPRAN XL 120 MG ORAL CAPSULE EXTENDED RELEASE 24 HOUR PROPRANOLOL HCL SR BEADS Inactive PROMETHAZINE HCL 25 MG ORAL TABLET 1 Q. 4 hr. PRN 2013 PROMETHAZINE HCL 25 MG ORAL TABLET 069173 PROMETHAZINE HCL Inactive POTASSIUM CHLORIDE 20 MEQ ORAL PACKET by mouth twice a day prn 2 POTASSIUM CHLORIDE 20 MEQ ORAL PACKET 0235469 POTASSIUM CHLORIDE Inactive PHENADOZ 25 MG RECTAL SUPPOSITORY 1 every 4 hrs. PRN PHENADOZ 25 MG RECTAL SUPPOSITORY 540027 PROMETHAZINE HCL Inactive ZOFRAN 8 MG ORAL TABLET 1 tab by mouth every 12 hours prn 4 ZOFRAN 8 MG ORAL TABLET 154105 ONDANSETRON HCL Inactive OMEPRAZOLE 20 MG ORAL CAPSULE DELAYED RELEASE 1 tablet by mo uth daily for GERD OMEPRAZOLE 20 MG ORAL CAPSULE DELAYED RELEASE 19 8051 OMEPRAZOLE Inactive CYCLOBENZAPRINE HCL 10 MG ORAL TABLET 1 tablet by mout h three times daily as needed for headaches CYCLOBENZAPRINE HCL 10 MG ORAL TABLET 201102 CYCLOBENZAPRINE HCL Inactive VITAMIN D3 4000 IU 1 tab 3 times daily VITAMIN D3 4000 IU Inactive PROPRANOLOL HCL 80 MG ORAL TABLET 1 tab tue. and thur. PROPRANOLOL HCL 80 MG ORAL TABLET 598727 PROPRANOLOL HCL Inacti ve CYANOCOBALAMIN 1000 MCG/ML INJECTION SOLUTION 1 injection ev ruben 2 weeks CYANOCOBALAMIN 1000 MCG/ML INJECTION SOLUTION 30 9594 CYANOCOBALAMIN Inactive MAGNESIUM GLUCONATE 250 MG ORAL TABLET 1 tab tid 23/10/23 MAGNESIUM GLUCONATE 250 MG ORAL TABLET 554597 MAGNESIUM GLUCONATE Inactive LOMOTIL 2.5-0.025 MG ORAL TABLET 1 tab by mouth prn 23/10/23 LOMOTIL 2.5-0.025 MG ORAL TABLET 3886933 DIPHENOXYLATE-ATROPINE Inac tive FLORANEX ORAL PACKET 1 pack three times daily, for bowel health FLORANEX ORAL PACKET 92867412592 LACTOBACILLUS Inactive IRON 325 (65 Fe) MG ORAL TABLET 1 every other day 2015 IRON 325 (65 Fe) MG ORAL TABLET 806731 FERROUS SULFATE Inactive FLAGYL 500 MG ORAL TABLET 1 pill by mouth three times daily, for diarrhea FLAGYL 500 MG ORAL TABLET 348492 METRONIDAZOLE I nactive BACTRIM DS 800-160 MG ORAL TABLET 1 pill by mouth twice claudio y, for UTI BACTRIM DS 800-160 MG ORAL TABLET 914118 SULFAMETHOXAZOLE-TRIMETHOPRIM Inactive Advance Directives Directive Description Start [...] ... - Chemistry sodium, serum 141 mmol/L 181-509 1633/01/10 potassium, serum 3.7 mmol/L 3.5-5.2 chloride, serum 101 mmol/L 98-107 carbon dioxide, venous blood 31.0 mmol/L 21.0-32 .0 blood glucose 96 mg/dL 65-95 calcium, serum 9.5 mg/dL 8.5-10.1 urea nitrogen, blood 21 mg/dL 7-18 creatinine, serum 1.40 mg/dL 0.60-1.30 Estimated Glomerular Filtration Rate (calc) 39 (?) mL/min/1.73m2 = OR > 60 mL/min cholesterol, serum 211 mg/dL 490-565 9374/01/10 triglyceride, serum, fasting 77 mg/dL 30-200 HDL cholesterol, serum 70 mg/dL 32-60 LDL cholesterol, serum 126 mg/dL 0-130 TSH 1.19 m[iU]/mL 0.36-3.74 Lab Report: CBC, Basic Metabolic Panel, MICROALB/CREAT W/RATIO, Lipid Pa ... - Hematology mean corpuscular volume, RBC 92 fL 80-97 leukocyte count, blood 4.6 10^3/MM^3 10*3/mm3 4.6-10.2 erythrocyte (RBC) count 4.69 10^6/MM^3 10*6/mm3 3.80-5.8 0 hemoglobin, blood 14.1 g/dL 12.0-16.0 hematocrit, blood 43.1 % 37.0-47.0 mean corpuscular hemoglobin, RBC 30.1 pg 27. [...] 30 - 300 mg/g Abnormal mg/g mg/L 0- Lab Report: CEA - Serology carcinoembryonic antigen 0.6 ng/mL Lab Report: Comp. Metabolic Panel - Chem istry potassium, serum 3.8 mmol/L 3.5-5.2 carbon dioxide, venous blood 30.2 mmol/L 21.0-32 .0 sodium, serum 142 mmol/L 546-466 9665/04/19 urea nitrogen, blood 23 mg/dL 7-18 creatinine, serum 1.33 mg/dL 0.60-1.30 alanine aminotransferase (SGPT), serum 27 U/L 12-78 aspartate aminotransferase (SGOT), serum 24 U/L 15-37 calcium, serum 9.4 mg/dL 8.5-10.1 bilirubin, serum, total 0.80 mg/dL 0.00-1.00 blood glucose 97 mg/dL 65-110 chloride, serum 101 mmol/L 98-107 Lab Report: Renal Panel, Magnesium - Chelle radha sodium, serum 142 mmol/L 867-735 7248/11/02 potassium, serum 3.4 mmol/L 3.5-5.2 chloride, serum [...] mg/dL Encounters Code Encounter Date Provider Facility CPT-52651 Level 4 Est. Patient 15:35:24 MOLECULAR BIOLOGY DIRECTOR Adam Yates MD [facility] CPT-17441 Level 3 New Patient 12:08:54 MOLECULAR BIOLOGY DIRECTOR Adam Yates MD [facility] CPT-38319 [id number] Vst-Est Level IV 19:48:30 MOLECULAR BIOLOGY DIRECTOR Tracy jalloh Polapari [facility] [place] CPT-05192 [id number] Vst-Est Level III 14:29:19 CDT Fiorella Holt [facility] [place] [facility] [place] CPT-08074 Level 2 Est. Patient 14:58:26 CDT Kylie Escalonagabbi [facility] [place] CPT-68059 Level 3 Est. Patient 08:15:24 MOLECULAR BIOLOGY DIRECTOR Kylieshubham Lund [facility] [place] CPT-64083 Level 2 Est. Patient 14:27:16 MOLECULAR BIOLOGY DIRECTOR Kylie boyd [facility] [place] [facility] [place] CPT-15835 Level 3 Est. Patient 17:54:48 CDT Kylie boyd [facility] [place] [facility] [place] CPT-09330 Level 3 Est. Patient 16:26:30 CDT Kinachrista blackmon [facility] [place] CPT-05720 Level 3 New Patient 16:22:01 MOLECULAR BIOLOGY DIRECTOR Adam Yates MD [facility] CPT-35681 Level 4 Est. Patient 17:00:48 CDT Kylie boyd [facility] [place] [facility] [place] CPT-91744 Level 3 Est. Patient 13:15:54 CDT Kylie boyd [facility] CPT-32746 Level 3 Est. Patient 09:10:11 CDT Kylie boyd [facility] CPT-22399 Level 4 Est. Patient 12:08:30 MOLECULAR BIOLOGY DIRECTOR Hope cohn MD [facility] CPT-90773 Level 4 Est. Patient 19:08:42 MOLECULAR BIOLOGY DIRECTOR Hope cohn MD [facility] CPT-85044 Level 4 Est. Patient 20:04:51 CDT Hope cohn MD [facility] CPT-89205 Level 3 New Patient 01:46:11 MOLECULAR BIOLOGY DIRECTOR Hope landers MD [facility] Procedures Code Procedure Name Date Entry Date Standard Desc ription CPT-06177 Postop F/U Visit 15:45:41 CDT CPT-97368 Sono Soft Tissue Head and Neck - XRAY US E ONLY 11:56:06 MOLECULAR BIOLOGY DIRECTOR CPT-30690 Abx/Therapy Injection 09:40:08 MOLECULAR BIOLOGY DIRECTOR CPT-J0897 Prolia 60 mg 09:40:08 MOLECULAR BIOLOGY DIRECTOR CPT-92628 First Vx - Ix admin for Medicare patients 02/08 10:02:45 CDT CPT-98274 Fluzone Quadrivalent Intramuscular Suspe nsion 0.5 ML 10:02:45 CDT CPT-89496 Magnesium - LAB USE ONLY 09:41:00 CDT 12/09 CPT-56250 Renal Panel - LAB USE ONLY 09:41:00 CDT 201 09/17/01 CPT-99217 Venipuncture Draw Fee 09:41:00 CDT CPT-10274 Calcium - LAB USE ONLY 17:25:11 CDT CPT-J0897 Prolia 60 mg 15:10:59 CDT CPT-63839 Abx/Therapy Injection 15:10:59 CDT CPT-G0439 Subsequent Annual Wellness Exam 14:29:19 CDT CPT-16520 Venipuncture Draw Fee 10:59:04 CDT CPT-92057 CMP - LAB USE ONLY 10:59:04 CDT CPT-83400 CBC with Diff - LAB USE ONLY 10:59:03 CDT 2 CPT-J0897 Prolia 60 mg 15:46:54 MOLECULAR BIOLOGY DIRECTOR CPT-57000 Abx/Therapy Injection 15:46:54 MOLECULAR BIOLOGY DIRECTOR CPT-52406 Microalbumin - LAB USE ONLY 09:41:32 MOLECULAR BIOLOGY DIRECTOR 20 23/01/15 CPT-68310 Free T4 - LAB USE ONLY 09:41:32 MOLECULAR BIOLOGY DIRECTOR CPT-44736 TSH - LAB USE ONLY 09:41:32 MOLECULAR BIOLOGY DIRECTOR CPT-00837 BMP - LAB USE ONLY 09:41:32 MOLECULAR BIOLOGY DIRECTOR CPT-21372 Venipuncture Draw Fee 09:41:32 MOLECULAR BIOLOGY DIRECTOR CPT-71761 First Vx - Ix admin for Medicare patients 11:19:30 CDT CPT-34507 Fluzone High-Dose Intramuscular Suspension 12/07 11:19:30 CDT CPT-J0897 Prolia 60 mg 14:55:42 CDT CPT-11861 Abx/Therapy Injection 14:55:42 CDT CPT-79288 Bone Density - XRAY USE ONLY 10:27:12 CDT 2 CPT-G0439 Subsequent Annual Wellness Exam 17:54:53 CDT CPT-82087 Foot, left, comp min 3V - XRAY USE ONLY 12:22:49 CDT CPT-G0009 Administration of Pneumococcal Vaccine 3 12:18:00 CDT CPT-37770 Pneumovax 23 Injection Injectable 25 MCG /0.5ML 12:18:00 CDT CPT-J0897 Prolia 60 mg 14:14:16 MOLECULAR BIOLOGY DIRECTOR CPT-70310 Abx/Therapy Injection 14:14:15 MOLECULAR BIOLOGY DIRECTOR CPT-59481 Lipid - LAB USE ONLY 10:01:52 MOLECULAR BIOLOGY DIRECTOR 2 CPT-59612 Calcium - LAB USE ONLY 10:01:51 MOLECULAR BIOLOGY DIRECTOR CPT-18706 Venipuncture Draw Fee 10:01:51 MOLECULAR BIOLOGY DIRECTOR CPT-LR Lesion Removal 16:22:01 MOLECULAR BIOLOGY DIRECTOR CPT-45210 TSH - LAB USE ONLY 14:26:02 CDT CPT-58604 CMP - LAB USE ONLY 14:26:01 CDT CPT-05599 CBC with Diff - LAB USE ONLY 14:26:01 CDT 2 CPT-64947 Venipuncture Draw Fee 14:26:01 CDT CPT-94625 First Vx - Ix admin for Medicare patients 13:27:08 CDT CPT-34017 Fluzone High-Dose Intramuscular Suspension 11/26 13:27:08 CDT CPT-G0438 Initial Annual Wellness Exam 14:19:57 CD T CPT-G0009 Administration of Pneumococcal Vaccine 9 11:36:25 CDT CPT-86825 Prevnar 13 Intramuscular Suspension 1 1:36:25 CDT CPT-25190 Prevnar 13 Intramuscular Suspension 1 0:40:58 CDT CPT-J0897 Prolia 60 mg 10:37:16 CDT CPT-39811 Abx/Therapy Injection 10:37:16 CDT CPT-J0897 Prolia 60 mg 16:09:34 MOLECULAR BIOLOGY DIRECTOR CPT-J0897 Prolia 60 mg 11:10:35 MOLECULAR BIOLOGY DIRECTOR CPT-89693 Abx/Therapy Injection 11:10:35 MOLECULAR BIOLOGY DIRECTOR CPT-000 Give Appropriate Flu Vaccine 17:01:15 MOLECULAR BIOLOGY DIRECTOR 2 CPT-96427 Fluzone High Dose (65+) 15:03:08 MOLECULAR BIOLOGY DIRECTOR 02/15 CPT-25638 Immunization Single Admin 15:03:08 MOLECULAR BIOLOGY DIRECTOR 2014 CPT-OV Office Visit 15:58:06 CDT CPT-J0897 Prolia 60 mg 08:45:38 CDT CPT-70500 Abx/Therapy Injection 08:45:38 CDT CPT-J3420 Vitamin B12 1000mcg (Cyanocobalamin) 09:26:20 MOLECULAR BIOLOGY DIRECTOR CPT-11120 Abx/Therapy Injection 09:26:20 MOLECULAR BIOLOGY DIRECTOR CPT-J3420 Vitamin B12 1000mcg (Cyanocobalamin) 09:44:40 MOLECULAR BIOLOGY DIRECTOR CPT-23750 Abx/Therapy Injection 09:44:40 MOLECULAR BIOLOGY DIRECTOR CPT-J3420 Vitamin B12 1000mcg (Cyanocobalamin) 09:15:54 MOLECULAR BIOLOGY DIRECTOR CPT-01356 Abx/Therapy Injection 09:15:54 MOLECULAR BIOLOGY DIRECTOR CPT-J3420 Vitamin B12 1000mcg (Cyanocobalamin) 09:46:44 MOLECULAR BIOLOGY DIRECTOR CPT-04410 Abx/Therapy Injection 09:46:44 MOLECULAR BIOLOGY DIRECTOR CPT-J3420 Vitamin B12 1000mcg (Cyanocobalamin) 09:47:34 MOLECULAR BIOLOGY DIRECTOR CPT-91892 Abx/Therapy Injection 09:47:34 MOLECULAR BIOLOGY DIRECTOR CPT-J3420 Vitamin B12 1000mcg (Cyanocobalamin) 14:35:50 MOLECULAR BIOLOGY DIRECTOR CPT-J3420 Vitamin B12 1000mcg (Cyanocobalamin) 09:25:05 MOLECULAR BIOLOGY DIRECTOR CPT-60868 Abx/Therapy Injection 09:25:05 MOLECULAR BIOLOGY DIRECTOR CPT-G0008 Administration of Influenza Virus Vaccine 13:36:47 CDT CPT-97886 Fluzone High-Dose Intramuscular Suspension 11/15 13:36:47 CDT CPT-J0897 Prolia 60 mg 08:50:41 CDT CPT-60609 Abx/Therapy Injection 08:50:41 CDT CPT-20308 Bone Density 12:06:12 CDT CPT-43887 Bone Density 08:54:40 CDT CPT-OV Office Visit 15:37:02 CDT CPT-84642 Postop F/U Visit 15:47:49 CDT CPT-65762 Postop F/U Visit 15:21:02 CDT CPT-[facility] Transitional Care Mgmt-High 07:52:27 CDT 20 20/06/01 CPT-69524 Venipuncture Draw Fee 13:51:18 CDT CPT-46271 Venipuncture Draw Fee 10:14:55 MOLECULAR BIOLOGY DIRECTOR 2014/02/ 18 CPT-48517 Venipuncture Draw Fee 13:39:45 MOLECULAR BIOLOGY DIRECTOR CPT-OV Office Visit 15:11:22 MOLECULAR BIOLOGY DIRECTOR CPT-91103 Venipuncture Draw Fee 09:20:49 MOLECULAR BIOLOGY DIRECTOR CPT-94455 Venipuncture Draw Fee 16:52:15 MOLECULAR BIOLOGY DIRECTOR CPT-15521 Venipuncture Draw Fee 10:37:24 MOLECULAR BIOLOGY DIRECTOR CPT-20331 Venipuncture Draw Fee 08:21:21 MOLECULAR BIOLOGY DIRECTOR CPT-08499 Venipuncture Draw Fee 08:30:20 MOLECULAR BIOLOGY DIRECTOR CPT-16895 Venipuncture Draw Fee 14:53:21 MOLECULAR BIOLOGY DIRECTOR CPT-35335 Venipuncture Draw Fee 09:40:56 MOLECULAR BIOLOGY DIRECTOR CPT-18832 Venipuncture Draw Fee 10:30:47 MOLECULAR BIOLOGY DIRECTOR CPT-71611 Venipuncture Draw Fee 10:46:17 MOLECULAR BIOLOGY DIRECTOR CPT-67967 Venipuncture Draw Fee 11:12:45 MOLECULAR BIOLOGY DIRECTOR CPT-82782 Venipuncture Draw Fee 09:53:33 MOLECULAR BIOLOGY DIRECTOR CPT-28501 Venipuncture Draw Fee 11:53:51 MOLECULAR BIOLOGY DIRECTOR CPT-26398 Venipuncture Draw Fee 10:33:50 MOLECULAR BIOLOGY DIRECTOR CPT-90743 Venipuncture Draw Fee 10:05:01 MOLECULAR BIOLOGY DIRECTOR CPT-55140 Venipuncture Draw Fee 14:32:52 MOLECULAR BIOLOGY DIRECTOR CPT-05695 Venipuncture Draw Fee 09:46:13 MOLECULAR BIOLOGY DIRECTOR CPT-16666 Venipuncture Draw Fee 11:34:27 MOLECULAR BIOLOGY DIRECTOR CPT-69106 Venipuncture Draw Fee 13:17:16 MOLECULAR BIOLOGY DIRECTOR CPT-23596 Venipuncture Draw Fee 12:05:39 CDT CPT-32807 Venipuncture Draw Fee 12:49:12 CDT CPT-34351 Venipuncture Draw Fee 12:37:18 CDT CPT-60068 Venipuncture Draw Fee 10:57:11 CDT CPT-73008 Venipuncture Draw Fee 13:47:40 CDT CPT-71056 Venipuncture Draw Fee 10:02:17 CDT CPT-62026 TB Tubersol 17:32:32 CDT CPT-OV Office Visit 16:21:53 CDT CPT-OV Office Visit 15:49:22 CDT CPT-OV Office Visit 17:16:31 CDT CPT-OV Office Visit 10:43:31 CDT
--- OUTSIDE RECORDS SUMMARY | 2019-02-09 11:57 | XMS REPORT | Clinical Summary ---
Author Author Renaldo, Florecita Munoz Organization [facility] [employer] Address Unknown Phone Unavailable Allergies, Adverse Reactions, [...] PhD Hyperpotassemia GERD 530.81 Resolved Kylie Yokum HAMMER MILL OPERATOR Esophageal reflux Health maintenance exam V70.0 Resolved Adolfo Yates MD Routine general medical examination at a health care facility Anemia 285.9 Resolved Kylie Yanet HAMMER MILL OPERATOR Anemia, unspecified Personal history of malignant neoplasm of large intestine V10.05 Active Adam Yates MD Personal history of malignant neoplasm of large intestine Hypomagnesemia 275.2 Resolved Kylie Yanet HAMMER MILL OPERATOR Disorders of magnesium metabolism Weakness 780.79 [...] Sebaceous cyst, scalp 706.2 Resolved Kylie Yokum HAMMER MILL OPERATOR Sebaceous cyst Cervical lymphadenopathy, anterior, left 785.6 Resolv ed Kylie Yokum HAMMER MILL OPERATOR Enlargement of lymph nodes Need for prophylactic vaccination and inoculation against in fluenza V04.81 Resolved Adam Yates MD Need for prophylactic vaccination and inoculation against influenza Preventive health care V70.0 Resolved Kylie Yoku m HAMMER MILL OPERATOR Routine general medical examination at a health care facility Thyroid nodule, left 241.0 Active Kylie Yokum A PRN Nontoxic uninodular goiter Screening mammogram V76.12 Resolved Kylie Yokum A PRN Other screening mammogram Mandy 706.2 Resolved Kylie Yokum HAMMER MILL OPERATOR Sebaceous cyst Colon cancer, ascending 153.6 Resolved Kylie Yok um HAMMER MILL OPERATOR Malignant neoplasm of ascending colon Foot pain, left 729.5 Resolved Kylie Yokum HAMMER MILL OPERATOR Pain in limb Splinter 919.6 Resolved Kylie Yokum HAMMER MILL OPERATOR Superficial foreign body (splinter) of other, multiple, and unspecified sites, without major open wound and without mention of infection Rash 782.1 Resolved Kylie Yokum HAMMER MILL OPERATOR Rash and other nonspecific skin eruption Cyst 706.2 Resolved Kylie Yokum HAMMER MILL OPERATOR Sebaceous cyst Body Mass Index 23.0-23.9 Adult Refinement 2017 Kylie Yokum HAMMER MILL OPERATOR Body Mass Index between 19-24, adult BMI less than 20 Refinement Adam wiggins MD Body Mass Index between 19-24, adult BMI 24-24.9 Active Adam Yates MD Body Mass Index between 19-24, adult Unspecified fall, initial encounter E888.9 Inactive Kylie Holt APRN Unspecified fall Eye pain, left 379.91 Inactive Kylie Holt APRN Pain in or around eye Pharyngitis, acute 074.0 Active Kylie Holt APR N Herpangina Chronic kidney disease stage 2 585.2 Refinement 12/09 Rosemarie Gresham RN Chronic kidney disease, Stage II (mild) Chronic kidney disease, stage 2 (Mild) 585.2 Active Kylie Holt APRN Chronic kidney disease, Stage II (mild) Hypomagnesemia 275.2 Active Rosemarie Gresham RN Disorders of magnesium metabolism Hypokalemia 276.8 Active Rosemarie Gresham RN Hypopotassemia Enlarged thyroid 240.9 Active Citlaly Watkins A Goiter, unspecified Underweight Active Adam Yates MD Underweight Follicular adenoma, thyroid 226 Active Adam Yates MD Benign neoplasm of thyroid glands ADENOCARCINOMA, COLON, 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 Dick Yates MD ABDOMINAL PAIN, RIGHT LOWER QUADRANT ICD-789.03 Inactive Kina Joshua HAMMER MILL OPERATOR UNSPECIFIED VENOUS INSUFFICIENCY ICD-459.81 Elda ctive Adam Yates MD ADENOCARCINOMA, 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 Inac tive Hope Benavidez MD PhD Hyperkalemia ICD-276.7 Inactive Hope Benavidez MD PhD GERD ICD-530.81 Inactive Kylie Yokum HAMMER MILL OPERATOR 2015 Health maintenance exam ICD-V70.0 Bam Yates MD Anemia ICD-285.9 Inactive Kylie Yokum HAMMER MILL OPERATOR 07/24 Hypomagnesemia ICD-275.2 Inactive Kylie Yokum HAMMER MILL OPERATOR ABDOMINAL PAIN, GENERALIZED ICD-789.07 Inactive Hope Benavidez [...] MD Sebaceous cyst, scalp ICD-706.2 Inactive Tracy shubham Yokum HAMMER MILL OPERATOR Cervical lymphadenopathy, anterior, left ICD-785.6 Inactive Kylie Yokum HAMMER MILL OPERATOR Need for prophylactic vaccination and inoculation against in fluenza ICD-V04.81 Bam Yates MD Preventive health care ICD-V70.0 Inactive Ka enrico Yokum HAMMER MILL OPERATOR Screening mammogram ICD-V76.12 Inactive Kylie Escalonakum HAMMER MILL OPERATOR Mandy ICD-706.2 Inactive Kylie Kevonum HAMMER MILL OPERATOR 07/20 Colon cancer, ascending ICD-153.6 Inactive K jannyi Yanet HAMMER MILL OPERATOR Foot pain, left ICD-729.5 Inactive Kylie Escalonakum HAMMER MILL OPERATOR Splinter ICD-919.6 Inactive Kylie Yokum HAMMER MILL OPERATOR 2017 Rash ICD-782.1 Inactive Kylie Polakum HAMMER MILL OPERATOR 07/25 Cyst ICD-706.2 Inactive Kylie Lundum HAMMER MILL OPERATOR 08/11 Aftercare following surgery of the teeth,oral cavity a nd digestive system, NEC ICD-V58.75 Inactive Adam Yates MD Colon cancer ICD-153.9 Inactive Adam luna MD Unspecified fall, initial encounter ICD-E888.9 Inactive Kylie Holt HAMMER MILL OPERATOR Eye pain, left ICD-379.91 Inactive Kylie Holt HAMMER MILL OPERATOR Medication List Medication Instructions Start Date Stop Date Generic Name NDC Status Provider Patient Instruction VOLTAREN 1 % TRANSDERMAL GEL apply 2 grams q 6-8 hour to left arm as needed for pain DICLOFENAC SODIUM 58609629067 Active Kylie Holt APR N Active IMODIUM A-D 2 MG ORAL TABLET 1 tablet twice a day LOPERAMIDE HCL 21171784908 Active Kylie Holt HAMMER MILL OPERATOR Active COQ10 100 MG ORAL CAPSULE 1 daily COENZYME Q10 252147 05146 Active LETY Nation Active VITAMIN D3 2000 UNIT ORAL CAPSULE Melaleuca-One daily CHOLECALCIFEROL 90270437887 Active Kylie Holt APRN Active PROBIOTIC DAILY ORAL CAPSULE Take one daily PROBIO TIC PRODUCT 95372218849 Active Kylie Holt APRN Active IRON 325 (65 Fe) MG ORAL TABLET 1 every other day FERROUS SULFATE 25970809325 No Longer Active Kylie Holt APRN Active FLORANEX ORAL PACKET 1 pack three times daily, for bowel health LACTOBACILLUS 56186450149 No Longer Active Kylie Holt APRN Active LOMOTIL 2.5-0.025 MG ORAL TABLET 1 tab by mouth prn 23/10/23 DIPHENOXYLATE-ATROPINE 98427630119 No Longer Active Kylie Holt HAMMER MILL OPERATOR Active MAGNESIUM GLUCONATE 250 MG ORAL TABLET 1 tab tid 23/10/23 MAGNESIUM GLUCONATE 04852211201 No Longer Active Kylie Holt APRN Active CYANOCOBALAMIN 1000 MCG/ML INJECTION SOLUTION 1 injection ev ruben 2 weeks CYANOCOBALAMIN 78171179220 No Longer Active Kylie boyd APRN Active ATENOLOL 25 MG ORAL TABLET 1/2 pill by mouth daily, fo r headaches, blood pressure ATENOLOL 47583949663 Active Kylie Holt APRN Active PROPRANOLOL HCL 80 MG ORAL TABLET 1 tab tue. and thur. PROPRANOLOL HCL 52071303651 No Longer Active Hope Benavidez MD PhD A ctive VITAMIN D3 4000 IU 1 tab 3 times daily VITAMIN D3 4000 IU No Longer Active Hope Benavidez MD PhD Active BACTRIM DS 800-160 MG ORAL TABLET 1 pill by mouth twice claudio y, for UTI SULFAMETHOXAZOLE-TRIMETHOPRIM 13317381337 No Longer Active Hope Benavidez MD PhD Active PROLIA 60 MG/ML SUBCUTANEOUS SOLUTION 1 shot every 6 months for osteoprosis DENOSUMAB 00485537613 Active Hope Benavidez MD PhD Active CALCIUM + D + K 750-500-40 MG-UNT-MCG ORAL TABLET 1 tab by m outh twice daily CALCIUM-VITAMIN D-VITAMIN K 29193256078 Active Hope valdez MD PhD Active DAILY VALUE MULTIVITAMIN ORAL TABLET 1 tab by mouth twice daily 201 05/16/14 MULTIPLE VITAMIN 47683817623 Active Hope Benavidez MD PhD Acti ve FISH OIL 306 MG CAPS 1 tab by mouth three times daily OMEGA-3 FATTY ACIDS 37696950125 Active Hope Benavidez MD PhD Active LUTEIN 10 MG ORAL TABLET 1 tab daily LUTEIN 46771486 408 Active Hope Benavidez MD PhD Active TRIAMTERENE-HCTZ 37.5-25 MG ORAL TABLET 1 tab by mouth daily 10/22 TRIAMTERENE-HCTZ 04591307210 Active Kylie Holt APRN Active CYCLOBENZAPRINE HCL 10 MG ORAL TABLET 1 [facility] times daily as needed for headaches CYCLOBENZAPRINE HCL 57286054481 No Longer Active Adam Yates MD Active OMEPRAZOLE 20 MG ORAL CAPSULE DELAYED RELEASE [address] [facility] daily for GERD OMEPRAZOLE 21651102985 No Longer Active Adam Yates MD Active ZOFRAN 8 MG ORAL TABLET 1 tab by mouth every 12 hours prn 4 ONDANSETRON HCL 23722501343 No Longer Active Adam Yates MD Active PHENADOZ 25 MG RECTAL SUPPOSITORY 1 every 4 hrs. PRN 2 PROMETHAZINE HCL 03940672758 No Longer Active Adam Yates MD A ctive POTASSIUM CHLORIDE 20 MEQ ORAL PACKET by mouth twice a day prn 2 POTASSIUM CHLORIDE 74076167675 No Longer Active Adam Carpenter MD Active PROMETHAZINE HCL 25 MG ORAL TABLET 1 Q. 4 hr. PRN PROMETHAZINE HCL 30554191337 No Longer Active Adam Yates MD Active INNOPRAN XL 120 MG ORAL CAPSULE EXTENDED RELEASE 24 HO UR Take one by mouth daily PROPRANOLOL HCL SR BEADS 76218838634 No Longer Active Adam Yates MD Active FLAGYL 500 MG ORAL TABLET 1 pill by mouth three times daily, for diarrhea METRONIDAZOLE 53308071555 No Longer Active Hope landers MD PhD Active DYAZIDE 37.5-25 MG ORAL CAPSULE 1 qd TRIA MTERENE-HCTZ 40091022459 No Longer Active Hope Benavidez MD PhD Active PROZAC 20 MG ORAL CAPSULE 1 q d FLUOXETINE HCL 84060085081 No Longer Active Hope Benavidez MD PhD Active SIMVASTATIN 40 MG ORAL TABLET 1 qd SIMVAS TATIN 02115146823 No Longer Active Adam Yates MD Active MELOXICAM 15 MG ORAL TABLET 1 qd MELOXICAM 78755776797 No Longer Active Adam Yates MD Active EXCEDRIN EXTRA STRENGTH 250-250-65 MG ORAL TABLET 1-2 q6h MA N headache CWUTCHL-EPHWVTNXZNISN-LBEXRAND 23362211629 Active Hope Benavidez MD PhD Active FLAGYL 500 MG ORAL TABLET 1 qid METRONIDAZOL E 60784020240 No Longer Active Adam Yates MD Active LEVAQUIN 750 MG ORAL TABLET 1 qd LEVOFLOXAC IN 16546467738 No Longer Active Adam Yates MD Active ADULT ASPIRIN LOW STRENGTH 81 MG ORAL TABLET DISINTEGRATING 1 qd ASPIRIN 27677047062 Active Hope Benavidez MD PhD Active LEVAQUIN 750 MG ORAL TABLET 1 qd LEVAQUIN 750 MG ORAL TABLET 776623 LEVOFLOXACIN Inactive FLAGYL 500 MG ORAL TABLET 1 qid FLAGYL 500 MG ORAL TABLET 336216 METRONIDAZOLE Inactive MELOXICAM 15 MG ORAL TABLET 1 qd MELOXICAM 15 MG ORAL TABLET 042153 MELOXICAM Inactive SIMVASTATIN 40 MG ORAL TABLET 1 qd SIMVASTATIN 40 MG ORAL TABLET 241154 SIMVASTATIN Inactive PROZAC 20 MG ORAL CAPSULE 1 q d PROZAC 20 MG ORAL CAPSULE 447095 FLUOXETINE HCL Inactive DYAZIDE 37.5-25 MG ORAL CAPSULE 1 qd 5 DYAZIDE 37.5-25 MG ORAL CAPSULE 972272 TRIAMTERENE-HCTZ Inactive INNOPRAN XL 120 MG ORAL CAPSULE EXTENDED RELEASE 24 HO UR Take one by mouth daily INNOPRAN XL 120 MG ORAL CAPSULE EXTENDED RELEASE 24 HOUR PROPRANOLOL HCL SR BEADS Inactive PROMETHAZINE HCL 25 MG ORAL TABLET 1 Q. 4 hr. PRN 2013 PROMETHAZINE HCL 25 MG ORAL TABLET 416266 PROMETHAZINE HCL Inactive POTASSIUM CHLORIDE 20 MEQ ORAL PACKET by mouth twice a day prn 2 POTASSIUM CHLORIDE 20 MEQ ORAL PACKET 9762796 POTASSIUM CHLORIDE Inactive PHENADOZ 25 MG RECTAL SUPPOSITORY 1 every 4 hrs. PRN PHENADOZ 25 MG RECTAL SUPPOSITORY 432267 PROMETHAZINE HCL Inactive ZOFRAN 8 MG ORAL TABLET 1 tab by mouth every 12 hours prn 4 ZOFRAN 8 MG ORAL TABLET 038661 ONDANSETRON HCL Inactive OMEPRAZOLE 20 MG ORAL CAPSULE DELAYED RELEASE 1 tablet by mo ut daily for GERD OMEPRAZOLE 20 MG ORAL CAPSULE DELAYED RELEASE 19 8051 OMEPRAZOLE Inactive CYCLOBENZAPRINE HCL 10 MG ORAL TABLET 1 tablet by mout h three times daily as needed for headaches CYCLOBENZAPRINE HCL 10 MG ORAL TABLET 881729 CYCLOBENZAPRINE HCL Inactive VITAMIN D3 4000 IU 1 tab 3 times daily VITAMIN D3 4000 IU Inactive PROPRANOLOL HCL 80 MG ORAL TABLET 1 tab tue. and thur. PROPRANOLOL HCL 80 MG ORAL TABLET 499748 PROPRANOLOL HCL Inacti ve CYANOCOBALAMIN 1000 MCG/ML INJECTION SOLUTION 1 injection ev ruben 2 weeks CYANOCOBALAMIN 1000 MCG/ML INJECTION SOLUTION 30 9594 CYANOCOBALAMIN Inactive MAGNESIUM GLUCONATE 250 MG ORAL TABLET 1 tab tid 23/10/23 MAGNESIUM GLUCONATE 250 MG ORAL TABLET 172500 MAGNESIUM GLUCONATE Inactive LOMOTIL 2.5-0.025 MG ORAL TABLET 1 tab by mouth prn 20 23/10/23 LOMOTIL 2.5-0.025 MG ORAL TABLET 4652330 DIPHENOXYLATE-ATROPINE Inac tive FLORANEX ORAL PACKET 1 pack three times daily, for bowel health FLORANEX ORAL PACKET 58752869978 LACTOBACILLUS Inactive IRON 325 (65 Fe) MG ORAL TABLET 1 every other day 2015 IRON 325 (65 Fe) MG ORAL TABLET 440452 FERROUS SULFATE Inactive FLAGYL 500 MG ORAL TABLET 1 pill by mouth three times daily, for diarrhea FLAGYL 500 MG ORAL TABLET 958156 METRONIDAZOLE I nactive BACTRIM DS 800-160 MG ORAL TABLET 1 pill by mouth twice claudio y, for UTI BACTRIM DS 800-160 MG ORAL TABLET 702093 SULFAMETHOXAZOLE-TRIMETHOPRIM Inactive Advance Directives Directive Description Start [...] Description blood pressure, diastolic, repeated by physician 70 [...] ... - Chemistry sodium, serum 141 mmol/L 618-160 7360/01/10 potassium, serum 3.7 mmol/L 3.5-5.2 chloride, serum 101 mmol/L 98-107 carbon dioxide, venous blood 31.0 mmol/L 21.0-32 .0 blood glucose 96 mg/dL 65-95 calcium, serum 9.5 mg/dL 8.5-10.1 urea nitrogen, blood 21 mg/dL 7-18 creatinine, serum 1.40 mg/dL 0.60-1.30 Estimated Glomerular Filtration Rate (calc) 39 (?) mL/min/1.73m2 = OR > 60 mL/min cholesterol, serum 211 mg/dL 346-686 7344/01/10 triglyceride, serum, fasting 77 mg/dL 30-200 HDL [...] - Chem istry sodium, serum 142 mmol/L 051-233 4774/04/19 carbon dioxide, venous blood 30.2 mmol/L 21.0-32 [...] - Chelle radha sodium, serum 142 mmol/L 593-337 9805/11/02 potassium, serum 3.4 mmol/L 3.5-5.2 chloride, serum [...] mg/dL Encounters Code Encounter Date Provider Facility CPT-44381 Level 4 Est. Patient 15:35:24 COORDINATOR INTEGRATED MARKETING Adam Yates MD [facility] CPT-12191 Level 3 New Patient 12:08:54 COORDINATOR INTEGRATED MARKETING Adam Yates MD [facility] CPT-37956 [id number] Vst-Est Level IV 19:48:30 COORDINATOR INTEGRATED MARKETING Tracy Holt [facility] CPT-71363 [id number] Vst-Est Level III 14:29:19 CDT Fiorella Holt [facility] CPT-06485 Level 2 Est. Patient 14:58:26 CDT Kylie Lund [facility] CPT-48514 Level 3 Est. Patient 08:15:24 COORDINATOR INTEGRATED MARKETING Kylie Lund [facility] CPT-85620 Level 2 Est. Patient 14:27:16 COORDINATOR INTEGRATED MARKETING Kylie boyd [facility] CPT-70526 Level 3 Est. Patient 17:54:48 CDT Kylie boyd [facility] CPT-43937 Level 3 Est. Patient 16:26:30 CDT Kina blackmon [facility] CPT-15092 Level 3 New Patient 16:22:01 COORDINATOR INTEGRATED MARKETING Adam Yates MD [facility] CPT-12549 Level 4 Est. Patient 17:00:48 CDT Kylie Lund [facility] CPT-18590 Level 3 Est. Patient 13:15:54 CDT Kylie Lund [facility] CPT-83069 Level 3 Est. Patient 09:10:11 CDT Kylie Lund [facility] CPT-07388 Level 4 Est. Patient 12:08:30 COORDINATOR INTEGRATED MARKETING Hope cohn MD [facility] CPT-33725 Level 4 Est. Patient 19:08:42 COORDINATOR INTEGRATED MARKETING Hope cohn MD [facility] CPT-41333 Level 4 Est. Patient 20:04:51 CDT Hope cohn MD [facility] CPT-56461 Level 3 New Patient 01:46:11 COORDINATOR INTEGRATED MARKETING Hope landers MD PhD [facility] Procedures Code Procedure Name Date Entry Date Standard Desc ription CPT-14638 Sono Soft Tissue Head and Neck - XRAY US E ONLY 11:56:06 COORDINATOR INTEGRATED MARKETING CPT-77984 Abx/Therapy Injection 09:40:08 COORDINATOR INTEGRATED MARKETING CPT-J0897 Prolia 60 mg 09:40:08 COORDINATOR INTEGRATED MARKETING CPT-39454 First Vx - Ix admin for Medicare patients 02/08 10:02:45 CDT CPT-40910 Fluzone Quadrivalent Intramuscular Suspe nsion 0.5 ML 10:02:45 CDT CPT-55833 Magnesium - LAB USE ONLY 09:41:00 CDT 12/09 CPT-18751 Renal Panel - LAB USE ONLY 09:41:00 CDT 201 09/17/01 CPT-20903 Venipuncture Draw Fee 09:41:00 CDT CPT-48756 Calcium - LAB USE ONLY 17:25:11 CDT CPT-J0897 Prolia 60 mg 15:10:59 CDT CPT-31383 Abx/Therapy Injection 15:10:59 CDT CPT-G0439 Subsequent Annual Wellness Exam 14:29:19 CDT CPT-22319 Venipuncture Draw Fee 10:59:04 CDT CPT-10585 CMP - LAB USE ONLY 10:59:04 CDT CPT-75886 CBC with Diff - LAB USE ONLY 10:59:03 CDT 2 CPT-J0897 Prolia 60 mg 15:46:54 COORDINATOR INTEGRATED MARKETING CPT-78949 Abx/Therapy Injection 15:46:54 COORDINATOR INTEGRATED MARKETING CPT-78848 Microalbumin - LAB USE ONLY 09:41:32 COORDINATOR INTEGRATED MARKETING 20 23/01/15 CPT-97705 Free T4 - LAB USE ONLY 09:41:32 COORDINATOR INTEGRATED MARKETING CPT-21034 TSH - LAB USE ONLY 09:41:32 COORDINATOR INTEGRATED MARKETING CPT-73476 BMP - LAB USE ONLY 09:41:32 COORDINATOR INTEGRATED MARKETING CPT-15396 Venipuncture Draw Fee 09:41:32 COORDINATOR INTEGRATED MARKETING CPT-04191 First Vx - Ix admin for Medicare patients 11:19:30 CDT CPT-17331 Fluzone High-Dose Intramuscular Suspension 12/07 11:19:30 CDT CPT-J0897 Prolia 60 mg 14:55:42 CDT CPT-19871 Abx/Therapy Injection 14:55:42 CDT CPT-83757 Bone Density - XRAY USE ONLY 10:27:12 CDT 2 CPT-G0439 Subsequent Annual Wellness Exam 17:54:53 CDT CPT-89343 Foot, left, comp min 3V - XRAY USE ONLY 12:22:49 CDT CPT-G0009 Administration of Pneumococcal Vaccine 3 12:18:00 CDT CPT-97795 Pneumovax 23 Injection Injectable 25 MCG /0.5ML 12:18:00 CDT CPT-J0897 Prolia 60 mg 14:14:16 COORDINATOR INTEGRATED MARKETING CPT-10732 Abx/Therapy Injection 14:14:15 COORDINATOR INTEGRATED MARKETING CPT-61909 Lipid - LAB USE ONLY 10:01:52 COORDINATOR INTEGRATED MARKETING 2 CPT-63039 Calcium - LAB USE ONLY 10:01:51 COORDINATOR INTEGRATED MARKETING CPT-68179 Venipuncture Draw Fee 10:01:51 COORDINATOR INTEGRATED MARKETING CPT-LR Lesion Removal 16:22:01 COORDINATOR INTEGRATED MARKETING CPT-18619 TSH - LAB USE ONLY 14:26:02 CDT CPT-32153 CMP - LAB USE ONLY 14:26:01 CDT CPT-36607 CBC with Diff - LAB USE ONLY 14:26:01 CDT 2 CPT-17705 Venipuncture Draw Fee 14:26:01 CDT CPT-16634 First Vx - Ix admin for Medicare patients 13:27:08 CDT CPT-83626 Fluzone High-Dose Intramuscular Suspension 11/26 13:27:08 CDT CPT-G0438 Initial Annual Wellness Exam 14:19:57 CD T CPT-G0009 Administration of Pneumococcal Vaccine 9 11:36:25 CDT CPT-97743 Prevnar 13 Intramuscular Suspension 1 1:36:25 CDT CPT-39642 Prevnar 13 Intramuscular Suspension 1 0:40:58 CDT CPT-J0897 Prolia 60 mg 10:37:16 CDT CPT-30823 Abx/Therapy Injection 10:37:16 CDT CPT-J0897 Prolia 60 mg 16:09:34 COORDINATOR INTEGRATED MARKETING CPT-J0897 Prolia 60 mg 11:10:35 COORDINATOR INTEGRATED MARKETING CPT-28097 Abx/Therapy Injection 11:10:35 COORDINATOR INTEGRATED MARKETING CPT-000 Give Appropriate Flu Vaccine 17:01:15 COORDINATOR INTEGRATED MARKETING 2 CPT-86781 Fluzone High Dose (65+) 15:03:08 COORDINATOR INTEGRATED MARKETING 02/15 CPT-17685 Immunization Single Admin 15:03:08 COORDINATOR INTEGRATED MARKETING 2014 CPT-OV Office Visit 15:58:06 CDT CPT-J0897 Prolia 60 mg 08:45:38 CDT CPT-77327 Abx/Therapy Injection 08:45:38 CDT CPT-J3420 Vitamin B12 1000mcg (Cyanocobalamin) 09:26:20 COORDINATOR INTEGRATED MARKETING CPT-00411 Abx/Therapy Injection 09:26:20 COORDINATOR INTEGRATED MARKETING CPT-J3420 Vitamin B12 1000mcg (Cyanocobalamin) 09:44:40 COORDINATOR INTEGRATED MARKETING CPT-62104 Abx/Therapy Injection 09:44:40 COORDINATOR INTEGRATED MARKETING CPT-J3420 Vitamin B12 1000mcg (Cyanocobalamin) 09:15:54 COORDINATOR INTEGRATED MARKETING CPT-15129 Abx/Therapy Injection 09:15:54 COORDINATOR INTEGRATED MARKETING CPT-J3420 Vitamin B12 1000mcg (Cyanocobalamin) 09:46:44 COORDINATOR INTEGRATED MARKETING CPT-98063 Abx/Therapy Injection 09:46:44 COORDINATOR INTEGRATED MARKETING CPT-J3420 Vitamin B12 1000mcg (Cyanocobalamin) 09:47:34 COORDINATOR INTEGRATED MARKETING CPT-58941 Abx/Therapy Injection 09:47:34 COORDINATOR INTEGRATED MARKETING CPT-J3420 Vitamin B12 1000mcg (Cyanocobalamin) 14:35:50 COORDINATOR INTEGRATED MARKETING CPT-J3420 Vitamin B12 1000mcg (Cyanocobalamin) 09:25:05 COORDINATOR INTEGRATED MARKETING CPT-01150 Abx/Therapy Injection 09:25:05 COORDINATOR INTEGRATED MARKETING CPT-G0008 Administration of Influenza Virus Vaccine 13:36:47 CDT CPT-56581 Fluzone High-Dose Intramuscular Suspension 11/15 13:36:47 CDT CPT-J0897 Prolia 60 mg 08:50:41 CDT CPT-39889 Abx/Therapy Injection 08:50:41 CDT CPT-67369 Bone Density 12:06:12 CDT CPT-39286 Bone Density 08:54:40 CDT CPT-OV Office Visit 15:37:02 CDT CPT-00075 Postop F/U Visit 15:47:49 CDT CPT-13283 Postop F/U Visit 15:21:02 CDT CPT-TCMH Transitional Care Mgmt-High 07:52:27 CDT 20 20/06/01 CPT-52181 Venipuncture Draw Fee 13:51:18 CDT CPT-40526 Venipuncture Draw Fee 10:14:55 COORDINATOR INTEGRATED MARKETING CPT-95628 Venipuncture Draw Fee 13:39:45 COORDINATOR INTEGRATED MARKETING CPT-OV Office Visit 15:11:22 COORDINATOR INTEGRATED MARKETING CPT-14382 Venipuncture Draw Fee 09:20:49 COORDINATOR INTEGRATED MARKETING CPT-86717 Venipuncture Draw Fee 16:52:15 COORDINATOR INTEGRATED MARKETING CPT-89582 Venipuncture Draw Fee 10:37:24 COORDINATOR INTEGRATED MARKETING CPT-08086 Venipuncture Draw Fee 08:21:21 COORDINATOR INTEGRATED MARKETING CPT-28590 Venipuncture Draw Fee 08:30:20 COORDINATOR INTEGRATED MARKETING CPT-40314 Venipuncture Draw Fee 14:53:21 COORDINATOR INTEGRATED MARKETING CPT-45191 Venipuncture Draw Fee 09:40:56 COORDINATOR INTEGRATED MARKETING CPT-53689 Venipuncture Draw Fee 10:30:47 COORDINATOR INTEGRATED MARKETING CPT-48410 Venipuncture Draw Fee 10:46:17 COORDINATOR INTEGRATED MARKETING CPT-01408 Venipuncture Draw Fee 11:12:45 COORDINATOR INTEGRATED MARKETING CPT-03693 Venipuncture Draw Fee 09:53:33 COORDINATOR INTEGRATED MARKETING CPT-86134 Venipuncture Draw Fee 11:53:51 COORDINATOR INTEGRATED MARKETING CPT-95545 Venipuncture Draw Fee 10:33:50 COORDINATOR INTEGRATED MARKETING CPT-85318 Venipuncture Draw Fee 10:05:01 COORDINATOR INTEGRATED MARKETING CPT-62008 Venipuncture Draw Fee 14:32:52 COORDINATOR INTEGRATED MARKETING CPT-55740 Venipuncture Draw Fee 09:46:13 COORDINATOR INTEGRATED MARKETING CPT-87028 Venipuncture Draw Fee 11:34:27 COORDINATOR INTEGRATED MARKETING CPT-09232 Venipuncture Draw Fee 13:17:16 COORDINATOR INTEGRATED MARKETING CPT-47882 Venipuncture Draw Fee 12:05:39 CDT CPT-44896 Venipuncture Draw Fee 12:49:12 CDT CPT-96588 Venipuncture Draw Fee 12:37:18 CDT CPT-15084 Venipuncture Draw Fee 10:57:11 CDT CPT-96139 Venipuncture Draw Fee 13:47:40 CDT CPT-75204 Venipuncture Draw Fee 10:02:17 CDT CPT-31322 TB Tubersol 17:32:32 CDT CPT-OV Office Visit 16:21:53 CDT CPT-OV Office Visit 15:49:22 CDT CPT-OV Office Visit 17:16:31 CDT CPT-OV Office Visit 10:43:31 CDT
--- OUTSIDE RECORDS SUMMARY | 2019-02-09 11:57 | XMS REPORT | Clinical Summary ---
Author Author Renaldo, Florecita Munoz Organization [facility] Address Unknown Phone Unavailable Allergies, Adverse Reactions, [...] PhD Hyperpotassemia GERD 530.81 Resolved Kylie Yokum COD CLERK Esophageal reflux Health maintenance exam V70.0 Resolved Adolfo Yates MD Routine general medical examination at a health care facility Anemia 285.9 Resolved Kylie Yanet COD CLERK Anemia, unspecified Personal history of malignant neoplasm of large intestine V10.05 Active Adam Yates MD Personal history of malignant neoplasm of large intestine Hypomagnesemia 275.2 Resolved Kylie Yanet COD CLERK Disorders of magnesium metabolism Weakness 780.79 Resolved [...] Sebaceous cyst, scalp 706.2 Resolved Kylie Yokum COD CLERK Sebaceous cyst Cervical lymphadenopathy, anterior, left 785.6 Resolv ed Kylie Yokum COD CLERK Enlargement of lymph nodes Need for prophylactic vaccination and inoculation against in fluenza V04.81 Resolved Adam Yates MD Need for prophylactic vaccination and inoculation against influenza Preventive health care V70.0 Resolved Kylie Yoku m COD CLERK Routine general medical examination at a health care facility Thyroid nodule, left 241.0 Active Kylie Yokum A PRN Nontoxic uninodular goiter Screening mammogram V76.12 Resolved Kylie Yokum A PRN Other screening mammogram Mandy 706.2 Resolved Kylie Yokum COD CLERK Sebaceous cyst Colon cancer, ascending 153.6 Resolved Kylie Yok um COD CLERK Malignant neoplasm of ascending colon Foot pain, left 729.5 Resolved Kylie Yokum COD CLERK Pain in limb Splinter 919.6 Resolved Kylie Yokum COD CLERK Superficial foreign body (splinter) of other, multiple, and unspecified sites, without major open wound and without mention of infection Rash 782.1 Resolved Kylie Yokum COD CLERK Rash and other nonspecific skin eruption Cyst 706.2 Resolved Kylie Yokum COD CLERK Sebaceous cyst Body Mass Index 23.0-23.9 Adult Refinement 2017 Kylie Yokum COD CLERK Body Mass Index between 19-24, adult BMI [...] Yates MD Benign neoplasm of thyroid glands ABDOMINAL PAIN, RIGHT LOWER QUADRANT ICD-789.03 Inactive Kina Joshua COD CLERK ADENOCARCINOMA, COLON, 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 Dick Yates MD ABDOMINAL PAIN, GENERALIZED ICD-789.07 Inactive Hope Benavidez MD PhD FEVER UNSPECIFIED ICD-780.60 Inactive Hope cohn MD PhD UNSPECIFIED VENOUS INSUFFICIENCY ICD-459.81 Elda ctive Adam Yates MD ADENOCARCINOMA, 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 Inac abdelrahman Benavidez MD PhD Hyperkalemia ICD-276.7 Inactive Hope Benavidez MD PhD GERD ICD-530.81 Inactive Kylie Yokum COD CLERK 2015 Health maintenance exam ICD-V70.0 Inactive Adolfo Ytaes MD Anemia ICD-285.9 Inactive Kylie Yokum COD CLERK 07/24 Hypomagnesemia ICD-275.2 Inactive Kylie Yokum COD CLERK Weakness ICD-780.79 Inactive Hope Benavidez MD P [...] PhD 201 05/19/01 Adenocarcinoma, ascending colon ICD-153.6 Brunilda Yates MD Sebaceous cyst, scalp ICD-706.2 Inactive Tracy hi Yokum COD CLERK Cervical lymphadenopathy, anterior, left ICD-785.6 Inactive Kylie Yokum COD CLERK Need for prophylactic vaccination and inoculation against in fluenza ICD-V04.81 Inactive Adam Yates MD Preventive health care ICD-V70.0 Inactive Fiorella Holt COD CLERK Screening mammogram ICD-V76.12 Inactive Kylie Lundum COD CLERK Mandy ICD-706.2 Inactive Kylie Lundum COD CLERK 07/20 Colon cancer, ascending ICD-153.6 Inactive Bravo Holt COD CLERK Foot pain, left ICD-729.5 Inactive Kylie Holt COD CLERK Splinter ICD-919.6 Inactive Kylie Holt COD CLERK 2017 Rash ICD-782.1 Inactive Kylie Holt COD CLERK 07/25 Cyst ICD-706.2 Inactive Kylie Holt COD CLERK 08/11 Unspecified fall, initial encounter ICD-E888.9 Inactive Kylie Holt COD CLERK Eye pain, left ICD-379.91 Inactive Kylie Holt COD CLERK Medication List Medication Instructions Start Date Stop Date Generic Name NDC Status Provider Patient Instruction VOLTAREN 1 % TRANSDERMAL GEL apply 2 grams q 6-8 hour to left arm as needed for pain DICLOFENAC SODIUM 86674499953 Active Kylie Holt APR N Active IMODIUM A-D 2 MG ORAL TABLET 1 tablet twice a day LOPERAMIDE HCL 83665185394 Active Kylie Holt COD CLERK Active COQ10 100 MG ORAL CAPSULE 1 daily COENZYME Q10 414539 74533 Active LETY Nation Active VITAMIN D3 2000 UNIT ORAL CAPSULE Melaleuca-One daily CHOLECALCIFEROL 18210980888 Active Kylie Holt APRN Active PROBIOTIC DAILY ORAL CAPSULE Take one daily PROBIO TIC PRODUCT 42185934915 Active Kylie Holt APRN Active IRON 325 (65 Fe) MG ORAL TABLET 1 every other day FERROUS SULFATE 52107866425 No Longer Active Kylie Holt APRN Active FLORANEX ORAL PACKET 1 pack three times daily, for bowel health LACTOBACILLUS 55204769331 No Longer Active Kylie Holt APRN Active LOMOTIL 2.5-0.025 MG ORAL TABLET 1 tab by mouth prn 23/10/23 DIPHENOXYLATE-ATROPINE 19104576257 No Longer Active Kylie Holt COD CLERK Active MAGNESIUM GLUCONATE 250 MG ORAL TABLET 1 tab tid 23/10/23 MAGNESIUM GLUCONATE 66847247034 No Longer Active Kylie Holt APRN Active CYANOCOBALAMIN 1000 MCG/ML INJECTION SOLUTION 1 injection ev ruben 2 weeks CYANOCOBALAMIN 51863417671 No Longer Active Kylie boyd APRN Active ATENOLOL 25 MG ORAL TABLET 1/2 pill by mouth daily, fo r headaches, blood pressure ATENOLOL 00282114736 Active Kylie Holt APRN Active PROPRANOLOL HCL 80 MG ORAL TABLET 1 tab tue. and thur. PROPRANOLOL HCL 72971705912 No Longer Active Hope Benavidez MD PhD A ctive VITAMIN D3 4000 IU 1 tab 3 times daily VITAMIN D3 4000 IU No Longer Active Hope Benavidez MD PhD Active BACTRIM DS 800-160 MG ORAL TABLET 1 pill by mouth twice claudio y, for UTI SULFAMETHOXAZOLE-TRIMETHOPRIM 57270721502 No Longer Active Hope Benavidez MD PhD Active PROLIA 60 MG/ML SUBCUTANEOUS SOLUTION 1 shot every 6 months for osteoprosis DENOSUMAB 82573704060 Active Hope Benavidez MD PhD Active CALCIUM + D + K 750-500-40 MG-UNT-MCG ORAL TABLET 1 tab by m outh twice daily CALCIUM-VITAMIN D-VITAMIN K 09470292938 Active Hope valdez MD PhD Active DAILY VALUE MULTIVITAMIN ORAL TABLET 1 tab by mouth twice daily 201 05/16/14 MULTIPLE VITAMIN 34315745306 Active Hope Benavidez MD PhD Acti ve FISH OIL 306 MG CAPS 1 tab by mouth three times daily OMEGA-3 FATTY ACIDS 68358163729 Active Hope Benavidez MD PhD Active LUTEIN 10 MG ORAL TABLET 1 tab daily LUTEIN 71782338 408 Active Hope Benavidez MD PhD Active TRIAMTERENE-HCTZ 37.5-25 MG ORAL TABLET 1 tab by mouth daily 10/22 TRIAMTERENE-HCTZ 54658295873 Active Kylie Holt APRN Active CYCLOBENZAPRINE HCL 10 MG ORAL TABLET 1 tablet by [facility] three times daily as needed for headaches CYCLOBENZAPRINE HCL 59531919201 No Longer Active Adam Yates MD Active OMEPRAZOLE 20 MG ORAL CAPSULE DELAYED RELEASE 1 tablet by [facility] daily for GERD OMEPRAZOLE 85304311990 No Longer Active Adam Yates MD Active ZOFRAN 8 MG ORAL TABLET 1 tab by mouth every 12 hours prn 4 ONDANSETRON HCL 91037885122 No Longer Active Adam Yates MD Active PHENADOZ 25 MG RECTAL SUPPOSITORY 1 every 4 hrs. PRN 2 PROMETHAZINE HCL 46557803869 No Longer Active Adam Yates MD A ctive POTASSIUM CHLORIDE 20 MEQ ORAL PACKET by mouth twice a day prn 2 POTASSIUM CHLORIDE 65785559341 No Longer Active Adam Carpenter MD Active PROMETHAZINE HCL 25 MG ORAL TABLET 1 Q. 4 hr. PRN PROMETHAZINE HCL 41523368609 No Longer Active Adam Yates MD Active INNOPRAN XL 120 MG ORAL CAPSULE EXTENDED RELEASE 24 HO UR Take one by mouth daily PROPRANOLOL HCL SR BEADS 63335852108 No Longer Active Adam Yates MD Active FLAGYL 500 MG ORAL TABLET 1 pill by mouth three times daily, for diarrhea METRONIDAZOLE 90179543554 No Longer Active Hope landers MD PhD Active DYAZIDE 37.5-25 MG ORAL CAPSULE 1 qd TRIA MTERENE-HCTZ 92497559512 No Longer Active Hope Benavidez MD PhD Active PROZAC 20 MG ORAL CAPSULE 1 q d FLUOXETINE HCL 70246834927 No Longer Active Hope Benavidez MD PhD Active SIMVASTATIN 40 MG ORAL TABLET 1 qd SIMVAS TATIN 85622433260 No Longer Active Adam Yates MD Active MELOXICAM 15 MG ORAL TABLET 1 qd MELOXICAM 03449945857 No Longer Active Adam Yates MD Active EXCEDRIN EXTRA STRENGTH 250-250-65 MG ORAL TABLET 1-2 q6h MO N headache [id number] 24633033099 Active Hope Benavidez MD PhD Active FLAGYL 500 MG ORAL TABLET 1 qid METRONIDAZOL E 48194495010 No Longer Active Adam Yates MD Active LEVAQUIN 750 MG ORAL TABLET 1 qd LEVOFLOXAC IN 85241120489 No Longer Active Adam Yates MD Active ADULT ASPIRIN LOW STRENGTH 81 MG ORAL TABLET DISINTEGRATING 1 qd ASPIRIN 61082982644 Active Hope Benavidez MD PhD Active LEVAQUIN 750 MG ORAL TABLET 1 qd LEVAQUIN 750 MG ORAL TABLET 662453 LEVOFLOXACIN Inactive FLAGYL 500 MG ORAL TABLET 1 qid FLAGYL 500 MG ORAL TABLET 083072 METRONIDAZOLE Inactive MELOXICAM 15 MG ORAL TABLET 1 qd MELOXICAM 15 MG ORAL TABLET 866089 MELOXICAM Inactive SIMVASTATIN 40 MG ORAL TABLET 1 qd SIMVASTATIN 40 MG ORAL TABLET 831598 SIMVASTATIN Inactive PROZAC 20 MG ORAL CAPSULE 1 q d PROZAC 20 MG ORAL CAPSULE 743209 FLUOXETINE HCL Inactive DYAZIDE 37.5-25 MG ORAL CAPSULE 1 qd 5 DYAZIDE 37.5-25 MG ORAL CAPSULE 671646 TRIAMTERENE-HCTZ Inactive INNOPRAN XL 120 MG ORAL CAPSULE EXTENDED RELEASE 24 HO UR Take one by mouth daily INNOPRAN XL 120 MG ORAL CAPSULE EXTENDED RELEASE 24 HOUR PROPRANOLOL HCL SR BEADS Inactive PROMETHAZINE HCL 25 MG ORAL TABLET 1 Q. 4 hr. PRN 2013 PROMETHAZINE HCL 25 MG ORAL TABLET 846398 PROMETHAZINE HCL Inactive POTASSIUM CHLORIDE 20 MEQ ORAL PACKET by mouth twice a day prn 2 POTASSIUM CHLORIDE 20 MEQ ORAL PACKET 1310166 POTASSIUM CHLORIDE Inactive PHENADOZ 25 MG RECTAL SUPPOSITORY 1 every 4 hrs. PRN PHENADOZ 25 MG RECTAL SUPPOSITORY 346391 PROMETHAZINE HCL Inactive ZOFRAN 8 MG ORAL TABLET 1 tab by mouth every 12 hours prn 4 ZOFRAN 8 MG ORAL TABLET 376159 ONDANSETRON HCL Inactive OMEPRAZOLE 20 MG ORAL CAPSULE DELAYED RELEASE 1 tablet by mo ut daily for GERD OMEPRAZOLE 20 MG ORAL CAPSULE DELAYED RELEASE 19 8051 OMEPRAZOLE Inactive CYCLOBENZAPRINE HCL 10 MG ORAL TABLET 1 tablet by mout h three times daily as needed for headaches CYCLOBENZAPRINE HCL 10 MG ORAL TABLET 389400 CYCLOBENZAPRINE HCL Inactive VITAMIN D3 4000 IU 1 tab 3 times daily VITAMIN D3 4000 IU Inactive PROPRANOLOL HCL 80 MG ORAL TABLET 1 tab tue. and thur. PROPRANOLOL HCL 80 MG ORAL TABLET 218616 PROPRANOLOL HCL Inacti ve CYANOCOBALAMIN 1000 MCG/ML INJECTION SOLUTION 1 injection ev ruben 2 weeks CYANOCOBALAMIN 1000 MCG/ML INJECTION SOLUTION 30 9594 CYANOCOBALAMIN Inactive MAGNESIUM GLUCONATE 250 MG ORAL TABLET 1 tab tid 23/10/23 MAGNESIUM GLUCONATE 250 MG ORAL TABLET 223038 MAGNESIUM GLUCONATE Inactive LOMOTIL 2.5-0.025 MG ORAL TABLET 1 tab by mouth prn 20 23/10/23 LOMOTIL 2.5-0.025 MG ORAL TABLET 4194559 DIPHENOXYLATE-ATROPINE Inac tive FLORANEX ORAL PACKET 1 pack three times daily, for bowel health FLORANEX ORAL PACKET 10152737843 LACTOBACILLUS Inactive IRON 325 (65 Fe) MG ORAL TABLET 1 every other day 2015 IRON 325 (65 Fe) MG ORAL TABLET 815290 FERROUS SULFATE Inactive FLAGYL 500 MG ORAL TABLET 1 pill by mouth three times daily, for diarrhea FLAGYL 500 MG ORAL TABLET 920221 METRONIDAZOLE I nactive BACTRIM DS 800-160 MG ORAL TABLET 1 pill by mouth twice claudio y, for UTI BACTRIM DS 800-160 MG ORAL TABLET 085267 SULFAMETHOXAZOLE-TRIMETHOPRIM Inactive Advance Directives Directive Description Start [...] ... - Chemistry sodium, serum 141 mmol/L 429-767 8277/01/10 potassium, serum 3.7 mmol/L 3.5-5.2 chloride, serum 101 mmol/L 98-107 carbon dioxide, venous blood 31.0 mmol/L 21.0-32 .0 blood glucose 96 mg/dL 65-95 calcium, serum 9.5 mg/dL 8.5-10.1 urea nitrogen, blood 21 mg/dL 7-18 creatinine, serum 1.40 mg/dL 0.60-1.30 Estimated Glomerular Filtration Rate (calc) 39 (?) mL/min/1.73m2 = OR > 60 mL/min cholesterol, serum 211 mg/dL 359-403 8102/01/10 triglyceride, serum, fasting 77 mg/dL 30-200 HDL [...] - Chem istry sodium, serum 142 mmol/L 960-749 9817/04/19 carbon dioxide, venous blood 30.2 mmol/L 21.0-32 [...] - Chelle radha sodium, serum 142 mmol/L 661-472 5438/11/02 potassium, serum 3.4 mmol/L 3.5-5.2 chloride, serum [...] mg/dL Encounters Code Encounter Date Provider Facility CPT-86362 Level 4 Est. Patient 15:35:24 FOREST MANAGEMENT PROFESSOR Adam Yates MD [facility] CPT-05262 Level 3 New Patient 12:08:54 FOREST MANAGEMENT PROFESSOR Adam Yates MD [facility] CPT-16316 [id number] Vst-Est Level IV 19:48:30 FOREST MANAGEMENT PROFESSOR Tracy Holt [facility] [place] CPT-86465 [id number] Vst-Est Level III 14:29:19 CDT Fiorella Holt [facility] [place] CPT-84832 Level 2 Est. Patient 14:58:26 CDT Kylie Lund [facility] [place] CPT-37844 Level 3 Est. Patient 08:15:24 FOREST MANAGEMENT PROFESSOR Kylie Lund [facility] [place] CPT-13923 Level 2 Est. Patient 14:27:16 FOREST MANAGEMENT PROFESSOR Kylie boyd [facility] [place] CPT-25019 Level 3 Est. Patient 17:54:48 CDT Kylie boyd [facility] [place] CPT-42376 Level 3 Est. Patient 16:26:30 CDT Kina blackmon [facility] CPT-13019 Level 3 New Patient 16:22:01 FOREST MANAGEMENT PROFESSOR Adam Yates MD [facility] CPT-72910 Level 4 Est. Patient 17:00:48 CDT Kylie Lund [facility] [place] CPT-73810 Level 3 Est. Patient 13:15:54 CDT Kylie Lund [facility] CPT-01235 Level 3 Est. Patient 09:10:11 CDT Kylie Lund [facility] CPT-35840 Level 4 Est. Patient 12:08:30 FOREST MANAGEMENT PROFESSOR Hope cohn MD [facility] CPT-43707 Level 4 Est. Patient 19:08:42 FOREST MANAGEMENT PROFESSOR Hope cohn MD [facility] CPT-61911 Level 4 Est. Patient 20:04:51 CDT Hope cohn MD [facility] CPT-35730 Level 3 New Patient 01:46:11 FOREST MANAGEMENT PROFESSOR Hope landers MD PhD [facility] Procedures Code Procedure Name Date Entry Date Standard Desc ription CPT-34783 Sono Soft Tissue Head and Neck - XRAY US E ONLY 11:56:06 FOREST MANAGEMENT PROFESSOR CPT-14493 Abx/Therapy Injection 09:40:08 FOREST MANAGEMENT PROFESSOR CPT-J0897 Prolia 60 mg 09:40:08 FOREST MANAGEMENT PROFESSOR CPT-88260 First Vx - Ix admin for Medicare patients 02/08 10:02:45 CDT CPT-13445 Fluzone Quadrivalent Intramuscular Suspe nsion 0.5 ML 10:02:45 CDT CPT-40241 Magnesium - LAB USE ONLY 09:41:00 CDT 12/09 CPT-99395 Renal Panel - LAB USE ONLY 09:41:00 CDT 201 09/17/01 CPT-20771 Venipuncture Draw Fee 09:41:00 CDT CPT-72292 Calcium - LAB USE ONLY 17:25:11 CDT CPT-J0897 Prolia 60 mg 15:10:59 CDT CPT-79443 Abx/Therapy Injection 15:10:59 CDT CPT-G0439 Subsequent Annual Wellness Exam 14:29:19 CDT CPT-64743 Venipuncture Draw Fee 10:59:04 CDT CPT-84188 CMP - LAB USE ONLY 10:59:04 CDT CPT-96600 CBC with Diff - LAB USE ONLY 10:59:03 CDT 2 CPT-J0897 Prolia 60 mg 15:46:54 FOREST MANAGEMENT PROFESSOR CPT-78108 Abx/Therapy Injection 15:46:54 FOREST MANAGEMENT PROFESSOR CPT-18476 Microalbumin - LAB USE ONLY 09:41:32 FOREST MANAGEMENT PROFESSOR 20 23/01/15 CPT-04979 Free T4 - LAB USE ONLY 09:41:32 FOREST MANAGEMENT PROFESSOR CPT-32396 TSH - LAB USE ONLY 09:41:32 FOREST MANAGEMENT PROFESSOR CPT-50511 BMP - LAB USE ONLY 09:41:32 FOREST MANAGEMENT PROFESSOR CPT-51565 Venipuncture Draw Fee 09:41:32 FOREST MANAGEMENT PROFESSOR CPT-92708 First Vx - Ix admin for Medicare patients 11:19:30 CDT CPT-03652 Fluzone High-Dose Intramuscular Suspension 12/07 11:19:30 CDT CPT-J0897 Prolia 60 mg 14:55:42 CDT CPT-82723 Abx/Therapy Injection 14:55:42 CDT CPT-67235 Bone Density - XRAY USE ONLY 10:27:12 CDT 2 CPT-G0439 Subsequent Annual Wellness Exam 17:54:53 CDT CPT-73427 Foot, left, comp min 3V - XRAY USE ONLY 12:22:49 CDT CPT-G0009 Administration of Pneumococcal Vaccine 3 12:18:00 CDT CPT-86117 Pneumovax 23 Injection Injectable 25 MCG /0.5ML 12:18:00 CDT CPT-J0897 Prolia 60 mg 14:14:16 FOREST MANAGEMENT PROFESSOR CPT-89033 Abx/Therapy Injection 14:14:15 FOREST MANAGEMENT PROFESSOR CPT-57298 Lipid - LAB USE ONLY 10:01:52 FOREST MANAGEMENT PROFESSOR 2 CPT-84107 Calcium - LAB USE ONLY 10:01:51 FOREST MANAGEMENT PROFESSOR CPT-15102 Venipuncture Draw Fee 10:01:51 FOREST MANAGEMENT PROFESSOR CPT-LR Lesion Removal 16:22:01 FOREST MANAGEMENT PROFESSOR CPT-01388 TSH - LAB USE ONLY 14:26:02 CDT CPT-73496 CMP - LAB USE ONLY 14:26:01 CDT CPT-20903 CBC with Diff - LAB USE ONLY 14:26:01 CDT 2 CPT-31035 Venipuncture Draw Fee 14:26:01 CDT CPT-46647 First Vx - Ix admin for Medicare patients 13:27:08 CDT CPT-39586 Fluzone High-Dose Intramuscular Suspension 11/26 13:27:08 CDT CPT-G0438 Initial Annual Wellness Exam 14:19:57 CD T CPT-G0009 Administration of Pneumococcal Vaccine 9 11:36:25 CDT CPT-79721 Prevnar 13 Intramuscular Suspension 1 1:36:25 CDT CPT-02604 Prevnar 13 Intramuscular Suspension 1 0:40:58 CDT CPT-J0897 Prolia 60 mg 10:37:16 CDT CPT-68298 Abx/Therapy Injection 10:37:16 CDT CPT-J0897 Prolia 60 mg 16:09:34 FOREST MANAGEMENT PROFESSOR CPT-J0897 Prolia 60 mg 11:10:35 FOREST MANAGEMENT PROFESSOR CPT-68266 Abx/Therapy Injection 11:10:35 FOREST MANAGEMENT PROFESSOR CPT-000 Give Appropriate Flu Vaccine 17:01:15 FOREST MANAGEMENT PROFESSOR 2 CPT-01719 Fluzone High Dose (65+) 15:03:08 FOREST MANAGEMENT PROFESSOR 02/15 CPT-50784 Immunization Single Admin 15:03:08 FOREST MANAGEMENT PROFESSOR 2014 CPT-OV Office Visit 15:58:06 CDT CPT-J0897 Prolia 60 mg 08:45:38 CDT CPT-24361 Abx/Therapy Injection 08:45:38 CDT CPT-J3420 Vitamin B12 1000mcg (Cyanocobalamin) 09:26:20 FOREST MANAGEMENT PROFESSOR CPT-34355 Abx/Therapy Injection 09:26:20 FOREST MANAGEMENT PROFESSOR CPT-J3420 Vitamin B12 1000mcg (Cyanocobalamin) 09:44:40 FOREST MANAGEMENT PROFESSOR CPT-23801 Abx/Therapy Injection 09:44:40 FOREST MANAGEMENT PROFESSOR CPT-J3420 Vitamin B12 1000mcg (Cyanocobalamin) 09:15:54 FOREST MANAGEMENT PROFESSOR CPT-49883 Abx/Therapy Injection 09:15:54 FOREST MANAGEMENT PROFESSOR CPT-J3420 Vitamin B12 1000mcg (Cyanocobalamin) 09:46:44 FOREST MANAGEMENT PROFESSOR CPT-08450 Abx/Therapy Injection 09:46:44 FOREST MANAGEMENT PROFESSOR CPT-J3420 Vitamin B12 1000mcg (Cyanocobalamin) 09:47:34 FOREST MANAGEMENT PROFESSOR CPT-51078 Abx/Therapy Injection 09:47:34 FOREST MANAGEMENT PROFESSOR CPT-J3420 Vitamin B12 1000mcg (Cyanocobalamin) 14:35:50 FOREST MANAGEMENT PROFESSOR CPT-J3420 Vitamin B12 1000mcg (Cyanocobalamin) 09:25:05 FOREST MANAGEMENT PROFESSOR CPT-59887 Abx/Therapy Injection 09:25:05 FOREST MANAGEMENT PROFESSOR CPT-G0008 Administration of Influenza Virus Vaccine 13:36:47 CDT CPT-51439 Fluzone High-Dose Intramuscular Suspension 11/15 13:36:47 CDT CPT-J0897 Prolia 60 mg 08:50:41 CDT CPT-95767 Abx/Therapy Injection 08:50:41 CDT CPT-65342 Bone Density 12:06:12 CDT CPT-34237 Bone Density 08:54:40 CDT CPT-OV Office Visit 15:37:02 CDT CPT-10460 Postop F/U Visit 15:47:49 CDT CPT-41741 Postop F/U Visit 15:21:02 CDT CPT-TCMH Transitional Care Mgmt-High 07:52:27 CDT 20 20/06/01 CPT-11838 Venipuncture Draw Fee 13:51:18 CDT CPT-70432 Venipuncture Draw Fee 10:14:55 FOREST MANAGEMENT PROFESSOR CPT-51955 Venipuncture Draw Fee 13:39:45 FOREST MANAGEMENT PROFESSOR CPT-OV Office Visit 15:11:22 FOREST MANAGEMENT PROFESSOR CPT-10492 Venipuncture Draw Fee 09:20:49 FOREST MANAGEMENT PROFESSOR CPT-27749 Venipuncture Draw Fee 16:52:15 FOREST MANAGEMENT PROFESSOR CPT-47082 Venipuncture Draw Fee 10:37:24 FOREST MANAGEMENT PROFESSOR CPT-44137 Venipuncture Draw Fee 08:21:21 FOREST MANAGEMENT PROFESSOR CPT-30932 Venipuncture Draw Fee 08:30:20 FOREST MANAGEMENT PROFESSOR CPT-79361 Venipuncture Draw Fee 14:53:21 FOREST MANAGEMENT PROFESSOR CPT-27728 Venipuncture Draw Fee 09:40:56 FOREST MANAGEMENT PROFESSOR CPT-26189 Venipuncture Draw Fee 10:30:47 FOREST MANAGEMENT PROFESSOR CPT-98941 Venipuncture Draw Fee 10:46:17 FOREST MANAGEMENT PROFESSOR CPT-82279 Venipuncture Draw Fee 11:12:45 FOREST MANAGEMENT PROFESSOR CPT-41739 Venipuncture Draw Fee 09:53:33 FOREST MANAGEMENT PROFESSOR CPT-74478 Venipuncture Draw Fee 11:53:51 FOREST MANAGEMENT PROFESSOR CPT-37077 Venipuncture Draw Fee 10:33:50 FOREST MANAGEMENT PROFESSOR CPT-56793 Venipuncture Draw Fee 10:05:01 FOREST MANAGEMENT PROFESSOR CPT-93208 Venipuncture Draw Fee 14:32:52 FOREST MANAGEMENT PROFESSOR CPT-18823 Venipuncture Draw Fee 09:46:13 FOREST MANAGEMENT PROFESSOR CPT-91686 Venipuncture Draw Fee 11:34:27 FOREST MANAGEMENT PROFESSOR CPT-23177 Venipuncture Draw Fee 13:17:16 FOREST MANAGEMENT PROFESSOR CPT-32201 Venipuncture Draw Fee 12:05:39 CDT CPT-61361 Venipuncture Draw Fee 12:49:12 CDT CPT-22235 Venipuncture Draw Fee 12:37:18 CDT CPT-55190 Venipuncture Draw Fee 10:57:11 CDT CPT-21563 Venipuncture Draw Fee 13:47:40 CDT CPT-24995 Venipuncture Draw Fee 10:02:17 CDT CPT-42325 TB Tubersol 17:32:32 CDT CPT-OV Office Visit 16:21:53 CDT CPT-OV Office Visit 15:49:22 CDT CPT-OV Office Visit 17:16:31 CDT CPT-OV Office Visit 10:43:31 CDT
--- OUTSIDE RECORDS SUMMARY | 2019-02-09 11:57 | XMS REPORT | Clinical Summary ---
Author Author Renaldo, Florecita Munoz Organization [facility] Connected Address Unknown Phone Unavailable Allergies, Adverse Reactions, [...] VENOUS INSUFFICIENCY 459.81 Resolved 201 05/09/09 Adam Yaets MD Venous (peripheral) insufficiency, unspe cified CARCINOMA [...] Hyperpotassemia GERD 530.81 Resolved Kylie Yokum LEGAL WRITING PROFESSOR Esophageal reflux Health maintenance exam V70.0 Resolved Adolfo Yates MD Routine general medical examination at a health care facility Anemia 285.9 Resolved Kylie Yanet LEGAL WRITING PROFESSOR Anemia, unspecified Personal history of malignant neoplasm of large intestine V10.05 Active Adam Yates MD Personal history of malignant neoplasm of large intestine Hypomagnesemia 275.2 Resolved Kylie Yanet LEGAL WRITING PROFESSOR Disorders of magnesium metabolism Weakness 780.79 Resolved [...] cyst, scalp 706.2 Resolved Kylie Yokum LEGAL WRITING PROFESSOR Sebaceous cyst Cervical lymphadenopathy, anterior, left 785.6 Resolv ed Kylie Yokum LEGAL WRITING PROFESSOR Enlargement of lymph nodes Need for prophylactic vaccination and inoculation against in fluenza V04.81 Resolved Adam Yates MD Need for prophylactic vaccination and inoculation against influenza Preventive health care V70.0 Resolved Kylie Yoku m LEGAL WRITING PROFESSOR Routine general medical examination at a health care facility Thyroid nodule, left 241.0 Active Kylie Yokum A PRN Nontoxic uninodular goiter Screening mammogram V76.12 Resolved Kylie Yokum A PRN Other screening mammogram Mandy 706.2 Resolved Kylie Yokum LEGAL WRITING PROFESSOR Sebaceous cyst Colon cancer, ascending 153.6 Resolved Kylie Yok um LEGAL WRITING PROFESSOR Malignant neoplasm of ascending colon Foot pain, left 729.5 Resolved Kylie Yokum LEGAL WRITING PROFESSOR Pain in limb Splinter 919.6 Resolved Kylie Yokum LEGAL WRITING PROFESSOR Superficial foreign body (splinter) of other, multiple, and unspecified sites, without major open wound and without mention of infection Rash 782.1 Resolved Kylie Yokum LEGAL WRITING PROFESSOR Rash and other nonspecific skin eruption Cyst 706.2 Resolved Kylie Yokum LEGAL WRITING PROFESSOR Sebaceous cyst Body Mass Index 23.0-23.9 Adult Refinement 2017 Kylie Yokum LEGAL WRITING PROFESSOR Body Mass Index between 19-24, adult [...] LOWER QUADRANT ICD-789.03 Inactive Kina Joshua LEGAL WRITING PROFESSOR ABDOMINAL PAIN, GENERALIZED ICD-789.07 Inactive Hope Benavidez MD PhD FEVER UNSPECIFIED ICD-780.60 Inactive Hope cohn MD PhD UNSPECIFIED VENOUS INSUFFICIENCY ICD-459.81 Elda ctive Adam Yates MD ADENOCARCINOMA, 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 Inac tive Hope Benavidez MD PhD Hyperkalemia ICD-276.7 Inactive Hope Benavidez MD PhD ADENOCARCINOMA, COLON, 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 Dick Yates MD Health maintenance exam ICD-V70.0 Bam Yates MD Anemia ICD-285.9 Inactive Kylie Yokum LEGAL WRITING PROFESSOR 07/24 GERD ICD-530.81 Inactive Kylie Yokum LEGAL WRITING PROFESSOR 2015 Hypomagnesemia ICD-275.2 Inactive Kylie Yokum LEGAL WRITING PROFESSOR Weakness ICD-780.79 Inactive Hope Benavidez MD P [...] scalp ICD-706.2 Inactive Tracy hi Yokum LEGAL WRITING PROFESSOR Cervical lymphadenopathy, anterior, left ICD-785.6 Inactive Kylie Yokum LEGAL WRITING PROFESSOR Need for prophylactic vaccination and inoculation against in fluenza ICD-V04.81 Inactive Adam Yates MD Diarrhea, functional ICD-564.5 Inactive Selena Yates MD Screening mammogram ICD-V76.12 Inactive Kylie Yokum LEGAL WRITING PROFESSOR Mandy ICD-706.2 Inactive Kylie Yokum LEGAL WRITING PROFESSOR 07/20 Colon cancer, ascending ICD-153.6 Inactive K umang Yokum LEGAL WRITING PROFESSOR Foot pain, left ICD-729.5 Inactive Kylie Yokum LEGAL WRITING PROFESSOR Rash ICD-782.1 Inactive Kylie Yokum LEGAL WRITING PROFESSOR 07/25 Cyst ICD-706.2 Inactive Kylie Yokum LEGAL WRITING PROFESSOR 08/11 Preventive health care ICD-V70.0 Inactive Fiorella Lundum LEGAL WRITING PROFESSOR Unspecified fall, initial encounter ICD-E888.9 Inactive Kylie Escalonakum LEGAL WRITING PROFESSOR Eye pain, left ICD-379.91 Inactive Kylie Yokum LEGAL WRITING PROFESSOR Splinter ICD-919.6 Inactive Kylie Yokum LEGAL WRITING PROFESSOR 2017 Medication List Medication Instructions Start Date Stop Date Generic Name NDC Status Provider Patient Instruction VOLTAREN 1 % TRANSDERMAL GEL apply 2 grams q 6-8 hour to left arm as needed for pain DICLOFENAC SODIUM 95463320212 Active Kylie Lundum APR N Active IMODIUM A-D 2 MG ORAL TABLET 1 tablet twice a day LOPERAMIDE HCL 58918556393 Active Kylie Holt LEGAL WRITING PROFESSOR Active COQ10 100 MG ORAL CAPSULE 1 daily COENZYME Q10 634787 56697 Active LETY Nation Active VITAMIN D3 2000 UNIT ORAL CAPSULE Melaleuca-One daily CHOLECALCIFEROL 08971636242 Active Kylie Holt APRN Active PROBIOTIC DAILY ORAL CAPSULE Take one daily PROBIO TIC PRODUCT 79847609063 Active Kylie Holt APRN Active IRON 325 (65 Fe) MG ORAL TABLET 1 every other day FERROUS SULFATE 78333502550 No Longer Active Kylie Holt APRN Active FLORANEX ORAL PACKET 1 pack three times daily, for bowel health LACTOBACILLUS 51758603942 No Longer Active Kylie Holt APRN Active LOMOTIL 2.5-0.025 MG ORAL TABLET 1 tab by mouth prn 23/10/23 DIPHENOXYLATE-ATROPINE 60800914259 No Longer Active Kylie Holt LEGAL WRITING PROFESSOR Active MAGNESIUM GLUCONATE 250 MG ORAL TABLET 1 tab tid 23/10/23 MAGNESIUM GLUCONATE 59811867025 No Longer Active Kylie Holt APRN Active CYANOCOBALAMIN 1000 MCG/ML INJECTION SOLUTION 1 injection ev ruben 2 weeks CYANOCOBALAMIN 09046330843 No Longer Active Kylie boyd APRN Active ATENOLOL 25 MG ORAL TABLET 1/2 pill by mouth daily, fo r headaches, blood pressure ATENOLOL 39613798260 Active Kylie Holt APRN Active PROPRANOLOL HCL 80 MG ORAL TABLET 1 tab tue. and thur. PROPRANOLOL HCL 45237884358 No Longer Active Hope Benavidez MD PhD A ctive VITAMIN D3 4000 IU 1 tab 3 times daily VITAMIN D3 4000 IU No Longer Active Hope Benavidez MD PhD Active BACTRIM DS 800-160 MG ORAL TABLET 1 pill by mouth twice claudio y, for UTI SULFAMETHOXAZOLE-TRIMETHOPRIM 50670509601 No Longer Active Hope Benavidez MD PhD Active PROLIA 60 MG/ML SUBCUTANEOUS SOLUTION 1 shot every 6 months for osteoprosis DENOSUMAB 69091350460 Active Hope Benavidez MD PhD Active CALCIUM + D + K 750-500-40 MG-UNT-MCG ORAL TABLET 1 tab by m outh twice daily CALCIUM-VITAMIN D-VITAMIN K 88465220228 Active Hope valdez MD PhD Active DAILY VALUE MULTIVITAMIN ORAL TABLET 1 tab by mouth twice daily 201 05/16/14 MULTIPLE VITAMIN 53910995225 Active Hope Benavidez MD PhD Acti ve FISH OIL 306 MG CAPS 1 tab by mouth three times daily OMEGA-3 FATTY ACIDS 20822841625 Active Hope Benavidez MD PhD Active LUTEIN 10 MG ORAL TABLET 1 tab daily LUTEIN 94048484 408 Active Hope Benavidez MD PhD Active TRIAMTERENE-HCTZ 37.5-25 MG ORAL TABLET 1 tab by mouth daily 10/22 TRIAMTERENE-HCTZ 32890510094 Active Kylie Holt APRN Active CYCLOBENZAPRINE HCL 10 MG ORAL TABLET 1 tablet by [facility] three times daily as needed for headaches CYCLOBENZAPRINE HCL 93851960558 No Longer Active Adam Yates MD Active OMEPRAZOLE 20 MG ORAL CAPSULE DELAYED RELEASE 1 tablet by [facility] daily for GERD OMEPRAZOLE 84647177431 No Longer Active Adam Yates MD Active ZOFRAN 8 MG ORAL TABLET 1 tab by mouth every 12 hours prn 4 ONDANSETRON HCL 61871684906 No Longer Active Adam Yates MD Active PHENADOZ 25 MG RECTAL SUPPOSITORY 1 every 4 hrs. PRN 2 PROMETHAZINE HCL 07509275204 No Longer Active Adam Yates MD A ctive POTASSIUM CHLORIDE 20 MEQ ORAL PACKET by mouth twice a day prn 2 POTASSIUM CHLORIDE 48327438214 No Longer Active Adam Carpenter MD Active PROMETHAZINE HCL 25 MG ORAL TABLET 1 Q. 4 hr. PRN PROMETHAZINE HCL 81075436392 No Longer Active Adam Yates MD Active INNOPRAN XL 120 MG ORAL CAPSULE EXTENDED RELEASE 24 HO UR Take one by mouth daily PROPRANOLOL HCL SR BEADS 18537249131 No Longer Active Adam Yates MD Active FLAGYL 500 MG ORAL TABLET 1 pill by mouth three times daily, for diarrhea METRONIDAZOLE 50912389452 No Longer Active Hope landers MD PhD Active DYAZIDE 37.5-25 MG ORAL CAPSULE 1 qd TRIA MTERENE-HCTZ 53247741017 No Longer Active Hope Benavidez MD PhD Active PROZAC 20 MG ORAL CAPSULE 1 q d FLUOXETINE HCL 24298054731 No Longer Active Hope Benavidez MD PhD Active SIMVASTATIN 40 MG ORAL TABLET 1 qd SIMVAS TATIN 23060177837 No Longer Active Adam Yates MD Active MELOXICAM 15 MG ORAL TABLET 1 qd MELOXICAM 91365536105 No Longer Active Adam Yates MD Active EXCEDRIN EXTRA STRENGTH 250-250-65 MG ORAL TABLET 1-2 q6h IA N headache [id number] 89141625476 Active Hope Benavidez MD PhD Active FLAGYL 500 MG ORAL TABLET 1 qid METRONIDAZOL E 81699569047 No Longer Active Adam Yates MD Active LEVAQUIN 750 MG ORAL TABLET 1 qd LEVOFLOXAC IN 14775788562 No Longer Active Adam Yates MD Active ADULT ASPIRIN LOW STRENGTH 81 MG ORAL TABLET DISINTEGRATING 1 qd ASPIRIN 53984463589 Active Hope Benavidez MD PhD Active LEVAQUIN 750 MG ORAL TABLET 1 qd LEVAQUIN 750 MG ORAL TABLET 625087 LEVOFLOXACIN Inactive FLAGYL 500 MG ORAL TABLET 1 qid FLAGYL 500 MG ORAL TABLET 439122 METRONIDAZOLE Inactive MELOXICAM 15 MG ORAL TABLET 1 qd MELOXICAM 15 MG ORAL TABLET 531855 MELOXICAM Inactive SIMVASTATIN 40 MG ORAL TABLET 1 qd SIMVASTATIN 40 MG ORAL TABLET 236952 SIMVASTATIN Inactive PROZAC 20 MG ORAL CAPSULE 1 q d PROZAC 20 MG ORAL CAPSULE 696993 FLUOXETINE HCL Inactive DYAZIDE 37.5-25 MG ORAL CAPSULE 1 qd 5 DYAZIDE 37.5-25 MG ORAL CAPSULE 792724 TRIAMTERENE-HCTZ Inactive INNOPRAN XL 120 MG ORAL CAPSULE EXTENDED RELEASE 24 HO UR Take one by mouth daily INNOPRAN XL 120 MG ORAL CAPSULE EXTENDED RELEASE 24 HOUR PROPRANOLOL HCL SR BEADS Inactive PROMETHAZINE HCL 25 MG ORAL TABLET 1 Q. 4 hr. PRN 2013 PROMETHAZINE HCL 25 MG ORAL TABLET 593858 PROMETHAZINE HCL Inactive POTASSIUM CHLORIDE 20 MEQ ORAL PACKET by mouth twice a day prn 2 POTASSIUM CHLORIDE 20 MEQ ORAL PACKET 5780499 POTASSIUM CHLORIDE Inactive PHENADOZ 25 MG RECTAL SUPPOSITORY 1 every 4 hrs. PRN PHENADOZ 25 MG RECTAL SUPPOSITORY 032284 PROMETHAZINE HCL Inactive ZOFRAN 8 MG ORAL TABLET 1 tab by mouth every 12 hours prn 4 ZOFRAN 8 MG ORAL TABLET 652207 ONDANSETRON HCL Inactive OMEPRAZOLE 20 MG ORAL CAPSULE DELAYED RELEASE 1 tablet by mo ut daily for GERD OMEPRAZOLE 20 MG ORAL CAPSULE DELAYED RELEASE 19 8051 OMEPRAZOLE Inactive CYCLOBENZAPRINE HCL 10 MG ORAL TABLET 1 tablet by mout h three times daily as needed for headaches CYCLOBENZAPRINE HCL 10 MG ORAL TABLET 281902 CYCLOBENZAPRINE HCL Inactive VITAMIN D3 4000 IU 1 tab 3 times daily VITAMIN D3 4000 IU Inactive PROPRANOLOL HCL 80 MG ORAL TABLET 1 tab tue. and thur. PROPRANOLOL HCL 80 MG ORAL TABLET 412480 PROPRANOLOL HCL Inacti ve CYANOCOBALAMIN 1000 MCG/ML INJECTION SOLUTION 1 injection ev ruben 2 weeks CYANOCOBALAMIN 1000 MCG/ML INJECTION SOLUTION 30 9594 CYANOCOBALAMIN Inactive MAGNESIUM GLUCONATE 250 MG ORAL TABLET 1 tab tid 23/10/23 MAGNESIUM GLUCONATE 250 MG ORAL TABLET 858372 MAGNESIUM GLUCONATE Inactive LOMOTIL 2.5-0.025 MG ORAL TABLET 1 tab by mouth prn 20 23/10/23 LOMOTIL 2.5-0.025 MG ORAL TABLET 3351066 DIPHENOXYLATE-ATROPINE Inac tive FLORANEX ORAL PACKET 1 pack three times daily, for bowel health FLORANEX ORAL PACKET 67422307035 LACTOBACILLUS Inactive IRON 325 (65 Fe) MG ORAL TABLET 1 every other day 2015 IRON 325 (65 Fe) MG ORAL TABLET 008634 FERROUS SULFATE Inactive FLAGYL 500 MG ORAL TABLET 1 pill by mouth three times daily, for diarrhea FLAGYL 500 MG ORAL TABLET 845463 METRONIDAZOLE I nactive BACTRIM DS 800-160 MG ORAL TABLET 1 pill by mouth twice claudio y, for UTI BACTRIM DS 800-160 MG ORAL TABLET 843021 SULFAMETHOXAZOLE-TRIMETHOPRIM Inactive Advance Directives Directive Description Start [...] ... - Chemistry sodium, serum 141 mmol/L 107-398 2671/01/10 potassium, serum 3.7 mmol/L 3.5-5.2 chloride, serum 101 mmol/L 98-107 carbon dioxide, venous blood 31.0 mmol/L 21.0-32 .0 blood glucose 96 mg/dL 65-95 calcium, serum 9.5 mg/dL 8.5-10.1 urea nitrogen, blood 21 mg/dL 7-18 creatinine, serum 1.40 mg/dL 0.60-1.30 Estimated Glomerular Filtration Rate (calc) 39 (?) mL/min/1.73m2 = OR > 60 mL/min cholesterol, serum 211 mg/dL 509-302 9797/01/10 triglyceride, serum, fasting 77 mg/dL 30-200 HDL [...] Report: Comp. Metabolic Panel - Chem istry urea nitrogen, blood 23 mg/dL 7-18 creatinine, serum 1.33 mg/dL 0.60-1.30 alanine aminotransferase (SGPT), serum 27 U/L 12-78 aspartate aminotransferase (SGOT), serum 24 U/L 15-37 calcium, serum 9.4 mg/dL 8.5-10.1 bilirubin, serum, total 0.80 mg/dL 0.00-1.00 blood glucose 97 mg/dL 65-110 chloride, serum 101 mmol/L 98-107 potassium, serum 3.8 mmol/L 3.5-5.2 carbon dioxide, venous blood 30.2 mmol/L 21.0-32 .0 sodium, serum 142 mmol/L 136-145 Lab Report: Renal Panel, Magnesium - Chelle radha blood glucose 81 mg/dL 65-95 urea nitrogen, blood 17 mg/dL 7-18 calcium, serum 8.1 mg/dL 8.5-10.1 Estimated Glomerular Filtration Rate (calc) 41 (?) mL/min/1.73m2 = OR > 60 mL/min sodium, serum 142 mmol/L 259-285 1814/11/02 potassium, serum 3.4 mmol/L 3.5-5.2 chloride, serum 101 mmol/L 98-107 carbon dioxide, venous blood 31.5 mmol/L 21.0-32 .0 creatinine, serum 1.35 mg/dL 0.60-1.30 Office Visit: [facility] - SUB - Basic LDL target level 130 mg/dL Office Visit: [facility] - SUB - Chemistry HDL cholesterol, serum, target level 40 mg/dL cholesterol, target level 200 mg/dL triglyceride, target level 150 mg/dL Encounters Code Encounter Date Provider Facility CPT-69669 Level 4 Est. Patient 15:35:24 CHIEF TRANSFER AND PUMPHOUSE OPERATOR Adam Yates MD [facility] CPT-18201 Level 3 New Patient 12:08:54 CHIEF TRANSFER AND PUMPHOUSE OPERATOR Adam Yates MD [facility] CPT-52641 [id number] Vst-Est Level IV 19:48:30 CHIEF TRANSFER AND PUMPHOUSE OPERATOR Tracy Holt [facility] [place] [facility] [place] CPT-63013 [id number] Vst-Est Level III 14:29:19 CDT Fiorella weston Yanet [facility] [place] [facility] [place] CPT-88968 Level 2 Est. Patient 14:58:26 CDT Kylie Lund [facility] [place] [facility] [place] CPT-55735 Level 3 Est. Patient 08:15:24 CHIEF TRANSFER AND PUMPHOUSE OPERATOR Kylie Lund [facility] [place] [facility] [place] CPT-16342 Level 2 Est. Patient 14:27:16 CHIEF TRANSFER AND PUMPHOUSE OPERATOR Kylie boyd [facility] [place] [facility] [place] CPT-18792 Level 3 Est. Patient 17:54:48 CDT Kylie boyd [facility] [place] [facility] [place] CPT-07416 Level 3 Est. Patient 16:26:30 CDT Kina blackmon [facility] [place] CPT-03426 Level 3 New Patient 16:22:01 CHIEF TRANSFER AND PUMPHOUSE OPERATOR Adam Yates MD [facility] CPT-86947 Level 4 Est. Patient 17:00:48 CDT Kylie Lund [facility] [place] CPT-35278 Level 3 Est. Patient 13:15:54 CDT Kylie Lund [facility] CPT-48370 Level 3 Est. Patient 09:10:11 CDT Kylie Lund [facility] CPT-58484 Level 4 Est. Patient 12:08:30 CHIEF TRANSFER AND PUMPHOUSE OPERATOR Hope cohn MD [facility] CPT-54759 Level 4 Est. Patient 19:08:42 CHIEF TRANSFER AND PUMPHOUSE OPERATOR Hope cohn MD [facility] CPT-05413 Level 4 Est. Patient 20:04:51 CDT Hope cohn MD [facility] CPT-79897 Level 3 New Patient 01:46:11 CHIEF TRANSFER AND PUMPHOUSE OPERATOR Hope landers MD PhD [facility] Procedures Code Procedure Name Date Entry Date Standard Desc ription CPT-67982 Sono Soft Tissue Head and Neck - XRAY US E ONLY 11:56:06 CHIEF TRANSFER AND PUMPHOUSE OPERATOR CPT-11205 Abx/Therapy Injection 09:40:08 CHIEF TRANSFER AND PUMPHOUSE OPERATOR CPT-J0897 Prolia 60 mg 09:40:08 CHIEF TRANSFER AND PUMPHOUSE OPERATOR CPT-33227 First Vx - Ix admin for Medicare patients 02/08 10:02:45 CDT CPT-44733 Fluzone Quadrivalent Intramuscular Suspe nsion 0.5 ML 10:02:45 CDT CPT-68783 Magnesium - LAB USE ONLY 09:41:00 CDT 12/09 CPT-89980 Renal Panel - LAB USE ONLY 09:41:00 CDT 201 09/17/01 CPT-11437 Venipuncture Draw Fee 09:41:00 CDT CPT-15450 Calcium - LAB USE ONLY 17:25:11 CDT CPT-J0897 Prolia 60 mg 15:10:59 CDT CPT-82206 Abx/Therapy Injection 15:10:59 CDT CPT-G0439 Subsequent Annual Wellness Exam 14:29:19 CDT CPT-12608 Venipuncture Draw Fee 10:59:04 CDT CPT-05257 CMP - LAB USE ONLY 10:59:04 CDT CPT-66889 CBC with Diff - LAB USE ONLY 10:59:03 CDT 2 CPT-J0897 Prolia 60 mg 15:46:54 CHIEF TRANSFER AND PUMPHOUSE OPERATOR CPT-05153 Abx/Therapy Injection 15:46:54 CHIEF TRANSFER AND PUMPHOUSE OPERATOR CPT-94913 Microalbumin - LAB USE ONLY 09:41:32 CHIEF TRANSFER AND PUMPHOUSE OPERATOR 20 23/01/15 CPT-97038 Free T4 - LAB USE ONLY 09:41:32 CHIEF TRANSFER AND PUMPHOUSE OPERATOR CPT-10583 TSH - LAB USE ONLY 09:41:32 CHIEF TRANSFER AND PUMPHOUSE OPERATOR CPT-93849 BMP - LAB USE ONLY 09:41:32 CHIEF TRANSFER AND PUMPHOUSE OPERATOR CPT-75067 Venipuncture Draw Fee 09:41:32 CHIEF TRANSFER AND PUMPHOUSE OPERATOR CPT-24641 First Vx - Ix admin for Medicare patients 11:19:30 CDT CPT-18754 Fluzone High-Dose Intramuscular Suspension 12/07 11:19:30 CDT CPT-J0897 Prolia 60 mg 14:55:42 CDT CPT-73208 Abx/Therapy Injection 14:55:42 CDT CPT-85714 Bone Density - XRAY USE ONLY 10:27:12 CDT 2 CPT-G0439 Subsequent Annual Wellness Exam 17:54:53 CDT CPT-79513 Foot, left, comp min 3V - XRAY USE ONLY 12:22:49 CDT CPT-G0009 Administration of Pneumococcal Vaccine 3 12:18:00 CDT CPT-57263 Pneumovax 23 Injection Injectable 25 MCG /0.5ML 12:18:00 CDT CPT-J0897 Prolia 60 mg 14:14:16 CHIEF TRANSFER AND PUMPHOUSE OPERATOR CPT-74824 Abx/Therapy Injection 14:14:15 CHIEF TRANSFER AND PUMPHOUSE OPERATOR CPT-07915 Lipid - LAB USE ONLY 10:01:52 CHIEF TRANSFER AND PUMPHOUSE OPERATOR 2 CPT-99445 Calcium - LAB USE ONLY 10:01:51 CHIEF TRANSFER AND PUMPHOUSE OPERATOR CPT-28078 Venipuncture Draw Fee 10:01:51 CHIEF TRANSFER AND PUMPHOUSE OPERATOR CPT-LR Lesion Removal 16:22:01 CHIEF TRANSFER AND PUMPHOUSE OPERATOR CPT-63135 TSH - LAB USE ONLY 14:26:02 CDT CPT-59318 CMP - LAB USE ONLY 14:26:01 CDT CPT-03565 CBC with Diff - LAB USE ONLY 14:26:01 CDT 2 CPT-66400 Venipuncture Draw Fee 14:26:01 CDT CPT-96535 First Vx - Ix admin for Medicare patients 13:27:08 CDT CPT-41811 Fluzone High-Dose Intramuscular Suspension 11/26 13:27:08 CDT CPT-G0438 Initial Annual Wellness Exam 14:19:57 CD T CPT-G0009 Administration of Pneumococcal Vaccine 9 11:36:25 CDT CPT-53829 Prevnar 13 Intramuscular Suspension 1 1:36:25 CDT CPT-92629 Prevnar 13 Intramuscular Suspension 1 0:40:58 CDT CPT-J0897 Prolia 60 mg 10:37:16 CDT CPT-44381 Abx/Therapy Injection 10:37:16 CDT CPT-J0897 Prolia 60 mg 16:09:34 CHIEF TRANSFER AND PUMPHOUSE OPERATOR CPT-J0897 Prolia 60 mg 11:10:35 CHIEF TRANSFER AND PUMPHOUSE OPERATOR CPT-50700 Abx/Therapy Injection 11:10:35 CHIEF TRANSFER AND PUMPHOUSE OPERATOR CPT-000 Give Appropriate Flu Vaccine 17:01:15 CHIEF TRANSFER AND PUMPHOUSE OPERATOR 2 CPT-72996 Fluzone High Dose (65+) 15:03:08 CHIEF TRANSFER AND PUMPHOUSE OPERATOR 02/15 CPT-63040 Immunization Single Admin 15:03:08 CHIEF TRANSFER AND PUMPHOUSE OPERATOR 2014 CPT-OV Office Visit 15:58:06 CDT CPT-J0897 Prolia 60 mg 08:45:38 CDT CPT-60222 Abx/Therapy Injection 08:45:38 CDT CPT-J3420 Vitamin B12 1000mcg (Cyanocobalamin) 09:26:20 CHIEF TRANSFER AND PUMPHOUSE OPERATOR CPT-29020 Abx/Therapy Injection 09:26:20 CHIEF TRANSFER AND PUMPHOUSE OPERATOR CPT-J3420 Vitamin B12 1000mcg (Cyanocobalamin) 09:44:40 CHIEF TRANSFER AND PUMPHOUSE OPERATOR CPT-01393 Abx/Therapy Injection 09:44:40 CHIEF TRANSFER AND PUMPHOUSE OPERATOR CPT-J3420 Vitamin B12 1000mcg (Cyanocobalamin) 09:15:54 CHIEF TRANSFER AND PUMPHOUSE OPERATOR CPT-74714 Abx/Therapy Injection 09:15:54 CHIEF TRANSFER AND PUMPHOUSE OPERATOR CPT-J3420 Vitamin B12 1000mcg (Cyanocobalamin) 09:46:44 CHIEF TRANSFER AND PUMPHOUSE OPERATOR CPT-76921 Abx/Therapy Injection 09:46:44 CHIEF TRANSFER AND PUMPHOUSE OPERATOR CPT-J3420 Vitamin B12 1000mcg (Cyanocobalamin) 09:47:34 CHIEF TRANSFER AND PUMPHOUSE OPERATOR CPT-78461 Abx/Therapy Injection 09:47:34 CHIEF TRANSFER AND PUMPHOUSE OPERATOR CPT-J3420 Vitamin B12 1000mcg (Cyanocobalamin) 14:35:50 CHIEF TRANSFER AND PUMPHOUSE OPERATOR CPT-J3420 Vitamin B12 1000mcg (Cyanocobalamin) 09:25:05 CHIEF TRANSFER AND PUMPHOUSE OPERATOR CPT-13264 Abx/Therapy Injection 09:25:05 CHIEF TRANSFER AND PUMPHOUSE OPERATOR CPT-G0008 Administration of Influenza Virus Vaccine 13:36:47 CDT CPT-60942 Fluzone High-Dose Intramuscular Suspension 11/15 13:36:47 CDT CPT-J0897 Prolia 60 mg 08:50:41 CDT CPT-88934 Abx/Therapy Injection 08:50:41 CDT CPT-35791 Bone Density 12:06:12 CDT CPT-90858 Bone Density 08:54:40 CDT CPT-OV Office Visit 15:37:02 CDT CPT-85389 Postop F/U Visit 15:47:49 CDT CPT-29939 Postop F/U Visit 15:21:02 CDT CPT-TCMH Transitional Care Mgmt-High 07:52:27 CDT 20 20/06/01 CPT-76159 Venipuncture Draw Fee 13:51:18 CDT CPT-39920 Venipuncture Draw Fee 10:14:55 CHIEF TRANSFER AND PUMPHOUSE OPERATOR CPT-22862 Venipuncture Draw Fee 13:39:45 CHIEF TRANSFER AND PUMPHOUSE OPERATOR CPT-OV Office Visit 15:11:22 CHIEF TRANSFER AND PUMPHOUSE OPERATOR CPT-18124 Venipuncture Draw Fee 09:20:49 CHIEF TRANSFER AND PUMPHOUSE OPERATOR CPT-13871 Venipuncture Draw Fee 16:52:15 CHIEF TRANSFER AND PUMPHOUSE OPERATOR CPT-09406 Venipuncture Draw Fee 10:37:24 CHIEF TRANSFER AND PUMPHOUSE OPERATOR CPT-87648 Venipuncture Draw Fee 08:21:21 CHIEF TRANSFER AND PUMPHOUSE OPERATOR CPT-48442 Venipuncture Draw Fee 08:30:20 CHIEF TRANSFER AND PUMPHOUSE OPERATOR CPT-77065 Venipuncture Draw Fee 14:53:21 CHIEF TRANSFER AND PUMPHOUSE OPERATOR CPT-81754 Venipuncture Draw Fee 09:40:56 CHIEF TRANSFER AND PUMPHOUSE OPERATOR CPT-20864 Venipuncture Draw Fee 10:30:47 CHIEF TRANSFER AND PUMPHOUSE OPERATOR CPT-80015 Venipuncture Draw Fee 10:46:17 CHIEF TRANSFER AND PUMPHOUSE OPERATOR CPT-76011 Venipuncture Draw Fee 11:12:45 CHIEF TRANSFER AND PUMPHOUSE OPERATOR CPT-90124 Venipuncture Draw Fee 09:53:33 CHIEF TRANSFER AND PUMPHOUSE OPERATOR CPT-60466 Venipuncture Draw Fee 11:53:51 CHIEF TRANSFER AND PUMPHOUSE OPERATOR CPT-44355 Venipuncture Draw Fee 10:33:50 CHIEF TRANSFER AND PUMPHOUSE OPERATOR CPT-95894 Venipuncture Draw Fee 10:05:01 CHIEF TRANSFER AND PUMPHOUSE OPERATOR CPT-02978 Venipuncture Draw Fee 14:32:52 CHIEF TRANSFER AND PUMPHOUSE OPERATOR CPT-09821 Venipuncture Draw Fee 09:46:13 CHIEF TRANSFER AND PUMPHOUSE OPERATOR CPT-58823 Venipuncture Draw Fee 11:34:27 CHIEF TRANSFER AND PUMPHOUSE OPERATOR CPT-74711 Venipuncture Draw Fee 13:17:16 CHIEF TRANSFER AND PUMPHOUSE OPERATOR CPT-32530 Venipuncture Draw Fee 12:05:39 CDT CPT-07269 Venipuncture Draw Fee 12:49:12 CDT CPT-15587 Venipuncture Draw Fee 12:37:18 CDT CPT-72093 Venipuncture Draw Fee 10:57:11 CDT CPT-23618 Venipuncture Draw Fee 13:47:40 CDT CPT-64381 Venipuncture Draw Fee 10:02:17 CDT CPT-26545 TB Tubersol 17:32:32 CDT CPT-OV Office Visit 16:21:53 CDT CPT-OV Office Visit 15:49:22 CDT CPT-OV Office Visit 17:16:31 CDT CPT-OV Office Visit 10:43:31 CDT
--- OUTSIDE RECORDS SUMMARY | 2019-02-09 11:58 | XMS REPORT | Clinical Summary ---
Author Author Renaldo, Florecita Munoz Organization [facility] [employer] Address Unknown Phone Unavailable Allergies, Adverse Reactions, [...] PhD Hyperpotassemia GERD 530.81 Resolved Kylie Yokum INDUSTRIAL RELATIONS SPECIALIST Esophageal reflux Health maintenance exam V70.0 Resolved Adolfo Yates MD Routine general medical examination at a health care facility Anemia 285.9 Resolved Kylie Yanet INDUSTRIAL RELATIONS SPECIALIST Anemia, unspecified Personal history of malignant neoplasm of large intestine V10.05 Active Adam Yates MD Personal history of malignant neoplasm of large intestine Hypomagnesemia 275.2 Resolved Kylie Yanet INDUSTRIAL RELATIONS SPECIALIST Disorders of magnesium metabolism Weakness 780.79 [...] Sebaceous cyst, scalp 706.2 Resolved Kylie Yokum INDUSTRIAL RELATIONS SPECIALIST Sebaceous cyst Cervical lymphadenopathy, anterior, left 785.6 Resolv ed Kylie Yokum INDUSTRIAL RELATIONS SPECIALIST Enlargement of lymph nodes Need for prophylactic vaccination and inoculation against in fluenza V04.81 Resolved Adam Yates MD Need for prophylactic vaccination and inoculation against influenza Preventive health care V70.0 Resolved Kylie Yoku m INDUSTRIAL RELATIONS SPECIALIST Routine general medical examination at a health care facility Thyroid nodule, left 241.0 Active Kylie Yokum A PRN Nontoxic uninodular goiter Screening mammogram V76.12 Resolved Kylie Yokum A PRN Other screening mammogram Mandy 706.2 Resolved Kylie Yokum INDUSTRIAL RELATIONS SPECIALIST Sebaceous cyst Colon cancer, ascending 153.6 Resolved Kylie Yok um INDUSTRIAL RELATIONS SPECIALIST Malignant neoplasm of ascending colon Foot pain, left 729.5 Resolved Kylie Yokum INDUSTRIAL RELATIONS SPECIALIST Pain in limb Splinter 919.6 Resolved Kylie Yokum INDUSTRIAL RELATIONS SPECIALIST Superficial foreign body (splinter) of other, multiple, and unspecified sites, without major open wound and without mention of infection Rash 782.1 Resolved Kylie Yokum INDUSTRIAL RELATIONS SPECIALIST Rash and other nonspecific skin eruption Cyst 706.2 Resolved Kylie Yokum INDUSTRIAL RELATIONS SPECIALIST Sebaceous cyst Body Mass Index 23.0-23.9 Adult Refinement 2017 Kylie Yokum INDUSTRIAL RELATIONS SPECIALIST Body Mass Index between 19-24, adult BMI less than 20 Active Adam goodwin MD Body Mass Index between 19-24, adult Unspecified fall, initial encounter E888.9 Inactive Kylie Yanet REYES Unspecified fall Eye pain, left 379.91 Inactive [...] Hypopotassemia Enlarged thyroid 240.9 Active Citlaly Watkins RM A Goiter, unspecified Underweight Active Adam Yates MD Underweight ABDOMINAL PAIN, RIGHT LOWER QUADRANT ICD-789.03 Inactive Kina Joshua INDUSTRIAL RELATIONS SPECIALIST ADENOCARCINOMA, COLON, 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 Dick Yates MD ABDOMINAL PAIN, GENERALIZED ICD-789.07 Inactive Hope Benavidez MD PhD FEVER UNSPECIFIED ICD-780.60 Inactive Hope cohn MD PhD UNSPECIFIED VENOUS INSUFFICIENCY ICD-459.81 [place] [facility] Adam Yates MD ADENOCARCINOMA, 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 Inac tive Hope Benavidez MD PhD Hyperkalemia ICD-276.7 Inactive Hope Benavidez MD PhD GERD ICD-530.81 Inactive Kylie Yokum INDUSTRIAL RELATIONS SPECIALIST 2015 Health maintenance exam ICD-V70.0 Bam Yates MD Anemia ICD-285.9 Inactive Kylie Yokum INDUSTRIAL RELATIONS SPECIALIST 07/24 Hypomagnesemia ICD-275.2 Inactive Kylie Yokum INDUSTRIAL RELATIONS SPECIALIST Weakness ICD-780.79 Inactive Hope Benavidez MD [...] cyst, scalp ICD-706.2 Inactive Tracy hi Yokum INDUSTRIAL RELATIONS SPECIALIST Cervical lymphadenopathy, anterior, left ICD-785.6 Inactive Kylie Yogabbium INDUSTRIAL RELATIONS SPECIALIST Need for prophylactic vaccination and inoculation against in fluenza ICD-V04.81 Inactive Adam Yates MD Preventive health care ICD-V70.0 Inactive Fiorella Holt INDUSTRIAL RELATIONS SPECIALIST Screening mammogram ICD-V76.12 Inactive Kylie Holt INDUSTRIAL RELATIONS SPECIALIST Mandy ICD-706.2 Inactive Kylie Holt INDUSTRIAL RELATIONS SPECIALIST 07/20 Colon cancer, ascending ICD-153.6 Inactive Gabbi Holt INDUSTRIAL RELATIONS SPECIALIST Foot pain, left ICD-729.5 Inactive Kylie Holt INDUSTRIAL RELATIONS SPECIALIST Splinter ICD-919.6 Inactive Kylie Holt INDUSTRIAL RELATIONS SPECIALIST 2017 Rash ICD-782.1 Inactive Kylie Holt INDUSTRIAL RELATIONS SPECIALIST 07/25 Cyst ICD-706.2 Inactive Kylie Holt INDUSTRIAL RELATIONS SPECIALIST 08/11 Unspecified fall, initial encounter ICD-E888.9 Inactive Kylie Holt INDUSTRIAL RELATIONS SPECIALIST Eye pain, left ICD-379.91 Inactive Kylie Holt INDUSTRIAL RELATIONS SPECIALIST Medication List Medication Instructions Start Date Stop Date Generic Name NDC Status Provider Patient Instruction VOLTAREN 1 % TRANSDERMAL GEL apply 2 grams q 6-8 hour to left arm as needed for pain DICLOFENAC SODIUM 14737456738 Active Kylie Holt APR N Active IMODIUM A-D 2 MG ORAL TABLET 1 tablet twice a day LOPERAMIDE HCL 54963618181 Active Kylie Holt APRN Active COQ10 100 MG ORAL CAPSULE 1 daily COENZYME Q10 687060 92831 Active LETY Nation Active VITAMIN D3 2000 UNIT ORAL CAPSULE Melaleuca-One daily CHOLECALCIFEROL 78523409486 Active Kylie Holt APRN Active PROBIOTIC DAILY ORAL CAPSULE Take one daily PROBIO TIC PRODUCT 81395203945 Active Kylie Holt APRN Active IRON 325 (65 Fe) MG ORAL TABLET 1 every other day FERROUS SULFATE 16498869357 No Longer Active Kylie Yokum INDUSTRIAL RELATIONS SPECIALIST Active FLORANEX ORAL PACKET 1 pack three times daily, for bowel health LACTOBACILLUS 93216981508 No Longer Active Kylie Yokum INDUSTRIAL RELATIONS SPECIALIST Active LOMOTIL 2.5-0.025 MG ORAL TABLET 1 tab by mouth prn 20 23/10/23 DIPHENOXYLATE-ATROPINE 63130417824 No Longer Active Kylie Yokum INDUSTRIAL RELATIONS SPECIALIST Active MAGNESIUM GLUCONATE 250 MG ORAL TABLET 1 tab tid 23/10/23 MAGNESIUM GLUCONATE 65637918876 No Longer Active Kylie Yokum INDUSTRIAL RELATIONS SPECIALIST Active CYANOCOBALAMIN 1000 MCG/ML INJECTION SOLUTION 1 injection ev ruben 2 weeks CYANOCOBALAMIN 02577626848 No Longer Active Yklie Yok um INDUSTRIAL RELATIONS SPECIALIST Active ATENOLOL 25 MG ORAL TABLET 1/2 pill by mouth daily, fo r headaches, blood pressure ATENOLOL 84741299305 Active Kylie Yokum INDUSTRIAL RELATIONS SPECIALIST Active PROPRANOLOL HCL 80 MG ORAL TABLET 1 tab tue. and thur. PROPRANOLOL HCL 79225345072 No Longer Active Hope Benavidez MD PhD A ctive VITAMIN D3 4000 IU 1 tab 3 times daily VITAMIN D3 4000 IU No Longer Active Hope Benavidez MD PhD Active BACTRIM DS 800-160 MG ORAL TABLET 1 pill by mouth twice claudio y, for UTI SULFAMETHOXAZOLE-TRIMETHOPRIM 65151635809 No Longer Active Hope Benavidez MD PhD Active PROLIA 60 MG/ML SUBCUTANEOUS SOLUTION 1 shot every 6 months for osteoprosis DENOSUMAB 48855181255 Active Hope Benavidez MD PhD Active CALCIUM + D + K 750-500-40 MG-UNT-MCG ORAL TABLET 1 tab by m harvinder twice daily CALCIUM-VITAMIN D-VITAMIN K 46983244667 Active Hope valdez MD PhD Active DAILY VALUE MULTIVITAMIN ORAL TABLET 1 tab by mouth twice daily 201 05/16/14 MULTIPLE VITAMIN 79663855780 Active Hope Benavidez MD PhD Acti ve FISH OIL 306 MG CAPS 1 tab by mouth three times daily OMEGA-3 FATTY ACIDS 45603114131 Active Hpoe Benavidez MD PhD Active LUTEIN 10 MG ORAL TABLET 1 tab daily LUTEIN 59089368 408 Active Hope Benavidez MD PhD Active TRIAMTERENE-HCTZ 37.5-25 MG ORAL TABLET 1 tab by mouth daily 10/22 TRIAMTERENE-HCTZ 97450676331 Active Kylie Holt INDUSTRIAL RELATIONS SPECIALIST Active CYCLOBENZAPRINE HCL 10 MG ORAL TABLET 1 tablet by mout three times daily as needed for headaches CYCLOBENZAPRINE HCL 70609987181 No Longer Active Adam Yates MD Active OMEPRAZOLE 20 MG ORAL CAPSULE DELAYED RELEASE 1 tablet by mo [facility] daily for GERD OMEPRAZOLE 32745626973 No Longer Active Adam Yates MD Active ZOFRAN 8 MG ORAL TABLET 1 tab by mouth every 12 hours prn 4 ONDANSETRON HCL 52915068205 No Longer Active Adam Yates MD Active PHENADOZ 25 MG RECTAL SUPPOSITORY 1 every 4 hrs. PRN 2 PROMETHAZINE HCL 05082339274 No Longer Active dAam Yates MD A ctive POTASSIUM CHLORIDE 20 MEQ ORAL PACKET by mouth twice a day prn 2 POTASSIUM CHLORIDE 22401169273 No Longer Active Adam Carpenter MD Active PROMETHAZINE HCL 25 MG ORAL TABLET 1 Q. 4 hr. PRN PROMETHAZINE HCL 21347125052 No Longer Active Adam Yates MD Active INNOPRAN XL 120 MG ORAL CAPSULE EXTENDED RELEASE 24 HO UR Take one by mouth daily PROPRANOLOL HCL SR BEADS 99072509169 No Longer Active Adam Yates MD Active FLAGYL 500 MG ORAL TABLET 1 pill by mouth three times daily, for diarrhea METRONIDAZOLE 79600699774 No Longer Active Hope landers MD PhD Active DYAZIDE 37.5-25 MG ORAL CAPSULE 1 qd TRIA MTERENE-HCTZ 10156730010 No Longer Active Hope Benavidez MD PhD Active PROZAC 20 MG ORAL CAPSULE 1 q d FLUOXETINE HCL 62229538362 No Longer Active Hope Benavidez MD PhD Active SIMVASTATIN 40 MG ORAL TABLET 1 qd SIMVAS TATIN 72696464645 No Longer Active Adam Yates MD Active MELOXICAM 15 MG ORAL TABLET 1 qd MELOXICAM 21128742725 No Longer Active Adam Ytaes MD Active EXCEDRIN EXTRA STRENGTH 250-250-65 MG ORAL TABLET 1-2 q6h ID N headache POBZESU-[id number]-[id number] 57438746274 Active Hope Benavidez MD PhD Active FLAGYL 500 MG ORAL TABLET 1 qid METRONIDAZOL E 41603552521 No Longer Active Adam Yates MD Active LEVAQUIN 750 MG ORAL TABLET 1 qd LEVOFLOXAC IN 51078626356 No Longer Active Adam Yates MD Active ADULT ASPIRIN LOW STRENGTH 81 MG ORAL TABLET DISINTEGRATING 1 qd ASPIRIN 26966913279 Active Hope Benavidez MD PhD Active LEVAQUIN 750 MG ORAL TABLET 1 qd LEVAQUIN 750 MG ORAL TABLET 596391 LEVOFLOXACIN Inactive FLAGYL 500 MG ORAL TABLET 1 qid FLAGYL 500 MG ORAL TABLET 493737 METRONIDAZOLE Inactive MELOXICAM 15 MG ORAL TABLET 1 qd MELOXICAM 15 MG ORAL TABLET 397844 MELOXICAM Inactive SIMVASTATIN 40 MG ORAL TABLET 1 qd SIMVASTATIN 40 MG ORAL TABLET 085783 SIMVASTATIN Inactive PROZAC 20 MG ORAL CAPSULE 1 q d PROZAC 20 MG ORAL CAPSULE 107387 FLUOXETINE HCL Inactive DYAZIDE 37.5-25 MG ORAL CAPSULE 1 qd 5 DYAZIDE 37.5-25 MG ORAL CAPSULE 258247 TRIAMTERENE-HCTZ Inactive INNOPRAN XL 120 MG ORAL CAPSULE EXTENDED RELEASE 24 HO UR Take one by mouth daily INNOPRAN XL 120 MG ORAL CAPSULE EXTENDED RELEASE 24 HOUR PROPRANOLOL HCL SR BEADS Inactive PROMETHAZINE HCL 25 MG ORAL TABLET 1 Q. 4 hr. PRN 2013 PROMETHAZINE HCL 25 MG ORAL TABLET 477924 PROMETHAZINE HCL Inactive POTASSIUM CHLORIDE 20 MEQ ORAL PACKET by mouth twice a day prn 2 POTASSIUM CHLORIDE 20 MEQ ORAL PACKET 2272615 POTASSIUM CHLORIDE Inactive PHENADOZ 25 MG RECTAL SUPPOSITORY 1 every 4 hrs. PRN 2 PHENADOZ 25 MG RECTAL SUPPOSITORY 145782 PROMETHAZINE HCL Inactive ZOFRAN 8 MG ORAL TABLET 1 tab by mouth every 12 hours prn 4 ZOFRAN 8 MG ORAL TABLET 670762 ONDANSETRON HCL Inactive OMEPRAZOLE 20 MG ORAL CAPSULE DELAYED RELEASE 1 tablet by mo uth daily for GERD OMEPRAZOLE 20 MG ORAL CAPSULE DELAYED RELEASE 19 8051 OMEPRAZOLE Inactive CYCLOBENZAPRINE HCL 10 MG ORAL TABLET 1 tablet by mout h three times daily as needed for headaches CYCLOBENZAPRINE HCL 10 MG ORAL TABLET 159830 CYCLOBENZAPRINE HCL Inactive VITAMIN D3 4000 IU 1 tab 3 times daily VITAMIN D3 4000 IU Inactive PROPRANOLOL HCL 80 MG ORAL TABLET 1 tab tue. and thur. PROPRANOLOL HCL 80 MG ORAL TABLET 670343 PROPRANOLOL HCL Inacti ve CYANOCOBALAMIN 1000 MCG/ML INJECTION SOLUTION 1 injection ev ruben 2 weeks CYANOCOBALAMIN 1000 MCG/ML INJECTION SOLUTION 30 9594 CYANOCOBALAMIN Inactive MAGNESIUM GLUCONATE 250 MG ORAL TABLET 1 tab tid 23/10/23 MAGNESIUM GLUCONATE 250 MG ORAL TABLET 684253 MAGNESIUM GLUCONATE Inactive LOMOTIL 2.5-0.025 MG ORAL TABLET 1 tab by mouth prn 23/10/23 LOMOTIL 2.5-0.025 MG ORAL TABLET 0290861 DIPHENOXYLATE-ATROPINE Inac tive FLORANEX ORAL PACKET 1 pack three times daily, for bowel health FLORANEX ORAL PACKET 30832863074 LACTOBACILLUS Inactive IRON 325 (65 Fe) MG ORAL TABLET 1 every other day 2015 IRON 325 (65 Fe) MG ORAL TABLET 546690 FERROUS SULFATE Inactive FLAGYL 500 MG ORAL TABLET 1 pill by mouth three times daily, for diarrhea FLAGYL 500 MG ORAL TABLET 310981 METRONIDAZOLE I nactive BACTRIM DS 800-160 MG ORAL TABLET 1 pill by mouth twice claudio y, for UTI BACTRIM DS 800-160 MG ORAL TABLET 571339 SULFAMETHOXAZOLE-TRIMETHOPRIM Inactive Advance Directives Directive Description Start [...] ... - Chemistry sodium, serum 141 mmol/L 214-207 1848/01/10 potassium, serum 3.7 mmol/L 3.5-5.2 chloride, serum 101 mmol/L 98-107 carbon dioxide, venous blood 31.0 mmol/L 21.0-32 .0 blood glucose 96 mg/dL 65-95 calcium, serum 9.5 mg/dL 8.5-10.1 urea nitrogen, blood 21 mg/dL 7-18 creatinine, serum 1.40 mg/dL 0.60-1.30 Estimated Glomerular Filtration Rate (calc) 39 (?) mL/min/1.73m2 = OR > 60 mL/min cholesterol, serum 211 mg/dL 358-646 8264/01/10 triglyceride, serum, fasting 77 mg/dL 30-200 HDL [...] - Chem istry sodium, serum 142 mmol/L 449-836 2408/04/19 carbon dioxide, venous blood 30.2 mmol/L 21.0-32 [...] - Chelle radha sodium, serum 142 mmol/L 676-044 6469/11/02 potassium, serum 3.4 mmol/L 3.5-5.2 chloride, serum [...] mg/dL Encounters Code Encounter Date Provider Facility CPT-02509 Level 3 New Patient 12:08:54 FACULTY DEAN Adam Yates MD [facility] CPT-37400 [id number] Vst-Est Level IV 19:48:30 FACULTY DEAN Tracy Holt [facility] - Home CPT-15861 [id number] Vst-Est Level III 14:29:19 CDT Fiorella Holt [facility] - Home CPT-12561 Level 2 Est. Patient 14:58:26 CDT Kylie Lund [facility] - Home CPT-38098 Level 3 Est. Patient 08:15:24 FACULTY DEAN Kylie Lund [facility] - Home CPT-77524 Level 2 Est. Patient 14:27:16 FACULTY DEAN Kylie Lund [facility] - Home CPT-54020 Level 3 Est. Patient 17:54:48 CDT Kylie Lund [facility] - Home CPT-85179 Level 3 Est. Patient 16:26:30 CDT Kina blackmon [facility] CPT-29321 Level 3 New Patient 16:22:01 FACULTY DEAN Adam Yates MD [facility] CPT-94161 Level 4 Est. Patient 17:00:48 CDT Kylie Lund [facility] - Home CPT-05027 Level 3 Est. Patient 13:15:54 CDT Kylie Lund [facility] CPT-10076 Level 3 Est. Patient 09:10:11 CDT Kylie Lund [facility] named [facility] CPT-69317 Level 4 Est. Patient 12:08:30 FACULTY DEAN Hope cohn MD [facility] CPT-57569 Level 4 Est. Patient 19:08:42 FACULTY DEAN Hope cohn MD [facility] CPT-68916 Level 4 Est. Patient 20:04:51 CDT Hope cohn MD PhD [facility] CPT-63040 Level 3 New Patient 01:46:11 FACULTY DEAN Hope landers MD PhD [facility] Procedures Code Procedure Name Date Entry Date Standard Desc ription CPT-54204 Sono Soft Tissue Head and Neck - XRAY US E ONLY 11:56:06 FACULTY DEAN CPT-84755 Abx/Therapy Injection 09:40:08 FACULTY DEAN CPT-J0897 Prolia 60 mg 09:40:08 FACULTY DEAN CPT-61429 First Vx - Ix admin for Medicare patients 02/08 10:02:45 CDT CPT-51039 Fluzone Quadrivalent Intramuscular Suspe nsion 0.5 ML 10:02:45 CDT CPT-49806 Magnesium - LAB USE ONLY 09:41:00 CDT 12/09 CPT-55751 Renal Panel - LAB USE ONLY 09:41:00 CDT 201 09/17/01 CPT-30776 Venipuncture Draw Fee 09:41:00 CDT CPT-67631 Calcium - LAB USE ONLY 17:25:11 CDT CPT-J0897 Prolia 60 mg 15:10:59 CDT CPT-81757 Abx/Therapy Injection 15:10:59 CDT CPT-G0439 Subsequent Annual Wellness Exam 14:29:19 CDT CPT-12943 Venipuncture Draw Fee 10:59:04 CDT CPT-13807 CMP - LAB USE ONLY 10:59:04 CDT CPT-82181 CBC with Diff - LAB USE ONLY 10:59:03 CDT 2 CPT-J0897 Prolia 60 mg 15:46:54 FACULTY DEAN CPT-86108 Abx/Therapy Injection 15:46:54 FACULTY DEAN CPT-66739 Microalbumin - LAB USE ONLY 09:41:32 FACULTY DEAN 20 23/01/15 CPT-46153 Free T4 - LAB USE ONLY 09:41:32 FACULTY DEAN CPT-68475 TSH - LAB USE ONLY 09:41:32 FACULTY DEAN CPT-03474 BMP - LAB USE ONLY 09:41:32 FACULTY DEAN CPT-58550 Venipuncture Draw Fee 09:41:32 FACULTY DEAN CPT-51066 First Vx - Ix admin for Medicare patients 11:19:30 CDT CPT-97482 Fluzone High-Dose Intramuscular Suspension 12/07 11:19:30 CDT CPT-J0897 Prolia 60 mg 14:55:42 CDT CPT-76656 Abx/Therapy Injection 14:55:42 CDT CPT-80255 Bone Density - XRAY USE ONLY 10:27:12 CDT 2 CPT-G0439 Subsequent Annual Wellness Exam 17:54:53 CDT CPT-41151 Foot, left, comp min 3V - XRAY USE ONLY 12:22:49 CDT CPT-G0009 Administration of Pneumococcal Vaccine 3 12:18:00 CDT CPT-36110 Pneumovax 23 Injection Injectable 25 MCG /0.5ML 12:18:00 CDT CPT-J0897 Prolia 60 mg 14:14:16 FACULTY DEAN CPT-77584 Abx/Therapy Injection 14:14:15 FACULTY DEAN CPT-05177 Lipid - LAB USE ONLY 10:01:52 FACULTY DEAN 2 CPT-54680 Calcium - LAB USE ONLY 10:01:51 FACULTY DEAN CPT-75920 Venipuncture Draw Fee 10:01:51 FACULTY DEAN CPT-LR Lesion Removal 16:22:01 FACULTY DEAN CPT-91645 TSH - LAB USE ONLY 14:26:02 CDT CPT-69743 CMP - LAB USE ONLY 14:26:01 CDT CPT-76554 CBC with Diff - LAB USE ONLY 14:26:01 CDT 2 CPT-81230 Venipuncture Draw Fee 14:26:01 CDT CPT-31414 First Vx - Ix admin for Medicare patients 13:27:08 CDT CPT-27252 Fluzone High-Dose Intramuscular Suspension 11/26 13:27:08 CDT CPT-G0438 Initial Annual Wellness Exam 14:19:57 CD T CPT-G0009 Administration of Pneumococcal Vaccine 9 11:36:25 CDT CPT-24883 Prevnar 13 Intramuscular Suspension 1 1:36:25 CDT CPT-43999 Prevnar 13 Intramuscular Suspension 1 0:40:58 CDT CPT-J0897 Prolia 60 mg 10:37:16 CDT CPT-27171 Abx/Therapy Injection 10:37:16 CDT CPT-J0897 Prolia 60 mg 16:09:34 FACULTY DEAN CPT-J0897 Prolia 60 mg 11:10:35 FACULTY DEAN CPT-37015 Abx/Therapy Injection 11:10:35 FACULTY DEAN CPT-000 Give Appropriate Flu Vaccine 17:01:15 FACULTY DEAN 2 CPT-69432 Fluzone High Dose (65+) 15:03:08 FACULTY DEAN 02/15 CPT-59309 Immunization Single Admin 15:03:08 FACULTY DEAN 2014 CPT-OV Office Visit 15:58:06 CDT CPT-J0897 Prolia 60 mg 08:45:38 CDT CPT-53812 Abx/Therapy Injection 08:45:38 CDT CPT-J3420 Vitamin B12 1000mcg (Cyanocobalamin) 09:26:20 FACULTY DEAN CPT-80102 Abx/Therapy Injection 09:26:20 FACULTY DEAN CPT-J3420 Vitamin B12 1000mcg (Cyanocobalamin) 09:44:40 FACULTY DEAN CPT-57648 Abx/Therapy Injection 09:44:40 FACULTY DEAN CPT-J3420 Vitamin B12 1000mcg (Cyanocobalamin) 09:15:54 FACULTY DEAN CPT-30717 Abx/Therapy Injection 09:15:54 FACULTY DEAN CPT-J3420 Vitamin B12 1000mcg (Cyanocobalamin) 09:46:44 FACULTY DEAN CPT-72651 Abx/Therapy Injection 09:46:44 FACULTY DEAN CPT-J3420 Vitamin B12 1000mcg (Cyanocobalamin) 09:47:34 FACULTY DEAN CPT-27474 Abx/Therapy Injection 09:47:34 FACULTY DEAN CPT-J3420 Vitamin B12 1000mcg (Cyanocobalamin) 14:35:50 FACULTY DEAN CPT-J3420 Vitamin B12 1000mcg (Cyanocobalamin) 09:25:05 FACULTY DEAN CPT-32237 Abx/Therapy Injection 09:25:05 FACULTY DEAN CPT-G0008 Administration of Influenza Virus Vaccine 13:36:47 CDT CPT-47482 Fluzone High-Dose Intramuscular Suspension 11/15 13:36:47 CDT CPT-J0897 Prolia 60 mg 08:50:41 CDT CPT-94934 Abx/Therapy Injection 08:50:41 CDT CPT-33242 Bone Density 12:06:12 CDT CPT-49254 Bone Density 08:54:40 CDT CPT-OV Office Visit 15:37:02 CDT CPT-79144 Postop F/U Visit 15:47:49 CDT CPT-41067 Postop F/U Visit 15:21:02 CDT CPT-[facility] Transitional Care Mgmt-High 07:52:27 CDT 20 20/06/01 CPT-51510 Venipuncture Draw Fee 13:51:18 CDT CPT-49344 Venipuncture Draw Fee 10:14:55 FACULTY DEAN CPT-79392 Venipuncture Draw Fee 13:39:45 FACULTY DEAN CPT-OV Office Visit 15:11:22 FACULTY DEAN CPT-83568 Venipuncture Draw Fee 09:20:49 FACULTY DEAN CPT-34972 Venipuncture Draw Fee 16:52:15 FACULTY DEAN CPT-97560 Venipuncture Draw Fee 10:37:24 FACULTY DEAN CPT-56559 Venipuncture Draw Fee 08:21:21 FACULTY DEAN CPT-56372 Venipuncture Draw Fee 08:30:20 FACULTY DEAN CPT-04507 Venipuncture Draw Fee 14:53:21 FACULTY DEAN CPT-89800 Venipuncture Draw Fee 09:40:56 FACULTY DEAN CPT-50939 Venipuncture Draw Fee 10:30:47 FACULTY DEAN CPT-92417 Venipuncture Draw Fee 10:46:17 FACULTY DEAN CPT-33090 Venipuncture Draw Fee 11:12:45 FACULTY DEAN CPT-16022 Venipuncture Draw Fee 09:53:33 FACULTY DEAN CPT-95801 Venipuncture Draw Fee 11:53:51 FACULTY DEAN CPT-16675 Venipuncture Draw Fee 10:33:50 FACULTY DEAN CPT-13067 Venipuncture Draw Fee 10:05:01 FACULTY DEAN CPT-63824 Venipuncture Draw Fee 14:32:52 FACULTY DEAN CPT-71727 Venipuncture Draw Fee 09:46:13 FACULTY DEAN CPT-24373 Venipuncture Draw Fee 11:34:27 FACULTY DEAN CPT-69502 Venipuncture Draw Fee 13:17:16 FACULTY DEAN CPT-78595 Venipuncture Draw Fee 12:05:39 CDT CPT-25399 Venipuncture Draw Fee 12:49:12 CDT CPT-87818 Venipuncture Draw Fee 12:37:18 CDT CPT-65797 Venipuncture Draw Fee 10:57:11 CDT CPT-55109 Venipuncture Draw Fee 13:47:40 CDT CPT-57000 Venipuncture Draw Fee 10:02:17 CDT CPT-51799 TB Tubersol 17:32:32 CDT CPT-OV Office Visit 16:21:53 CDT CPT-OV Office Visit 15:49:22 CDT CPT-OV Office Visit 17:16:31 CDT CPT-OV Office Visit 10:43:31 CDT
--- OUTSIDE RECORDS SUMMARY | 2019-02-09 11:58 | XMS REPORT | Clinical Summary ---
Author Author Renaldo, Florecita Munoz Organization [facility] [employer] Address Unknown Phone Unavailable Allergies, Adverse Reactions, [...] PhD Hyperpotassemia GERD 530.81 Resolved Kylie Yokum TRUCK BODY BUILDER APPRENTICE Esophageal reflux Health maintenance exam V70.0 Resolved Adolfo Yates MD Routine general medical examination at a health care facility Anemia 285.9 Resolved Kylie Holt [employer]UCK BODY BUILDER APPRENTICE Anemia, unspecified Personal history of malignant neoplasm of large intestine V10.05 Active Adam Yates MD Personal history of malignant neoplasm of large intestine Hypomagnesemia 275.2 Resolved Kylie Holt TRUCK BODY BUILDER APPRENTICE Disorders of magnesium metabolism Weakness 780.79 Resolved [...] Sebaceous cyst, scalp 706.2 Resolved Kylie Yokum TRUCK BODY BUILDER APPRENTICE Sebaceous cyst Cervical lymphadenopathy, anterior, left 785.6 Resolv ed Kylie Yokum TRUCK BODY BUILDER APPRENTICE Enlargement of lymph nodes Need for prophylactic vaccination and inoculation against in fluenza V04.81 Resolved Adam Yates MD Need for prophylactic vaccination and inoculation against influenza Preventive health care V70.0 Resolved Kylie Yoku m TRUCK BODY BUILDER APPRENTICE Routine general medical examination at a health care facility Thyroid nodule, left 241.0 Active Kylie Yokum A PRN Nontoxic uninodular goiter Screening mammogram V76.12 Resolved Kylie Yokum A PRN Other screening mammogram Mandy 706.2 Resolved Kylie Yokum TRUCK BODY BUILDER APPRENTICE Sebaceous cyst Colon cancer, ascending 153.6 Resolved Kylie Yok um TRUCK BODY BUILDER APPRENTICE Malignant neoplasm of ascending colon Foot pain, left 729.5 Resolved Kylie Yokum TRUCK BODY BUILDER APPRENTICE Pain in limb Splinter 919.6 Resolved Kylie Yokum TRUCK BODY BUILDER APPRENTICE Superficial foreign body (splinter) of other, multiple, and unspecified sites, without major open wound and without mention of infection Rash 782.1 Resolved Kylie Yokum TRUCK BODY BUILDER APPRENTICE Rash and other nonspecific skin eruption Cyst 706.2 Resolved Kylie Yokum TRUCK BODY BUILDER APPRENTICE Sebaceous cyst Body Mass Index 23.0-23.9 Adult Refinement 2017 Kylie Yokum TRUCK BODY BUILDER APPRENTICE Body Mass Index between 19-24, adult BMI less than 20 Active Adam goodwin MD Body Mass Index between 19-24, adult Unspecified fall, initial encounter E888.9 Inactive Kylie Polapari AMY Unspecified fall Eye pain, left 379.91 Inactive Kylie oHlt APRN Pain in or around eye Pharyngitis, [...] RIGHT LOWER QUADRANT ICD-789.03 Inactive Kina Joshua [employer]UCK BODY BUILDER APPRENTICE ADENOCARCINOMA, COLON, 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 Dick Yates MD ABDOMINAL PAIN, GENERALIZED ICD-789.07 Inactive Hope Benavidez MD PhD FEVER UNSPECIFIED ICD-780.60 Inactive Hope cohn MD PhD UNSPECIFIED VENOUS INSUFFICIENCY ICD-459.81 [place] ctive Adam Yates MD ADENOCARCINOMA, 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 Inac tive Hope Benavidez MD PhD Hyperkalemia ICD-276.7 Inactive Hope Benavidez MD PhD GERD ICD-530.81 Inactive Kylie Yokum [employer]UCK BODY BUILDER APPRENTICE 2015 Health maintenance exam ICD-V70.0 Bam Yates MD Anemia ICD-285.9 Inactive Kylie Yokum TRUCK BODY BUILDER APPRENTICE 07/24 Hypomagnesemia ICD-275.2 Inactive Kylie Yokum TRUCK BODY BUILDER APPRENTICE Weakness ICD-780.79 Inactive Hope Benavidez MD P [...] cyst, scalp ICD-706.2 Inactive Tracy hi Yokum [employer]UCK BODY BUILDER APPRENTICE Cervical lymphadenopathy, anterior, left ICD-785.6 Inactive Kylie Yokum TRUCK BODY BUILDER APPRENTICE Need for prophylactic vaccination and inoculation against in fluenza ICD-V04.81 Inactive Adam Yates MD Preventive health care ICD-V70.0 Inactive Fiorella Holt TRUCK BODY BUILDER APPRENTICE Screening mammogram ICD-V76.12 Inactive Kylie Holt TRUCK BODY BUILDER APPRENTICE Mandy ICD-706.2 Inactive Kylie Holt TRUCK BODY BUILDER APPRENTICE 07/20 Colon cancer, ascending ICD-153.6 Inactive Bravo Holt TRUCK BODY BUILDER APPRENTICE Foot pain, left ICD-729.5 Inactive Kylie Holt [employer]UCK BODY BUILDER APPRENTICE Splinter ICD-919.6 Inactive Kylie Holt [employer]UCK BODY BUILDER APPRENTICE 2017 Rash ICD-782.1 Inactive Kylie Holt TRUCK BODY BUILDER APPRENTICE 07/25 Cyst ICD-706.2 Inactive Kylie Holt TRUCK BODY BUILDER APPRENTICE 08/11 Unspecified fall, initial encounter ICD-E888.9 Inactive Kylie Holt TRUCK BODY BUILDER APPRENTICE Eye pain, left ICD-379.91 Inactive Kylie Holt TRUCK BODY BUILDER APPRENTICE Medication List Medication Instructions Start Date Stop Date Generic Name NDC Status Provider Patient Instruction VOLTAREN 1 % TRANSDERMAL GEL apply 2 grams q 6-8 hour to left arm as needed for pain DICLOFENAC SODIUM 27612325327 Active Kylie Holt APR N Active IMODIUM A-D 2 MG ORAL TABLET 1 tablet twice a day LOPERAMIDE HCL 78576491268 Active Kylie Holt APRN Active COQ10 100 MG ORAL CAPSULE 1 daily COENZYME Q10 122311 41276 Active LETY Nation Active VITAMIN D3 2000 UNIT ORAL CAPSULE [place]ale[place]-One daily CHOLECALCIFEROL 18613463727 Active Kylie Holt APRN Active PROBIOTIC DAILY ORAL CAPSULE Take one daily PROBIO TIC PRODUCT 97993574069 Active Kylie Holt APRN Active IRON 325 (65 Fe) MG ORAL TABLET 1 every other day FERROUS SULFATE 93250086118 No Longer Active Kylie Yokum [employer]UCK BODY BUILDER APPRENTICE Active FLORANEX ORAL PACKET 1 pack three times daily, for bowel health LACTOBACILLUS 26828882772 No Longer Active Kylie Yokum TRUCK BODY BUILDER APPRENTICE Active LOMOTIL 2.5-0.025 MG ORAL TABLET 1 tab by mouth prn 20 23/10/23 DIPHENOXYLATE-ATROPINE 47214889134 No Longer Active Kylie Yokum TRUCK BODY BUILDER APPRENTICE Active MAGNESIUM GLUCONATE 250 MG ORAL TABLET 1 tab tid 23/10/23 MAGNESIUM GLUCONATE 57031581984 No Longer Active Kylie Yokum TRUCK BODY BUILDER APPRENTICE Active CYANOCOBALAMIN 1000 MCG/ML INJECTION SOLUTION 1 injection ev ruben 2 weeks CYANOCOBALAMIN 16724898696 No Longer Active Kylie Yok um [employer]UCK BODY BUILDER APPRENTICE Active ATENOLOL 25 MG ORAL TABLET 1/2 pill by mouth daily, fo r headaches, blood pressure ATENOLOL 83277661820 Active Kylie Yokum [employer]UCK BODY BUILDER APPRENTICE Active PROPRANOLOL HCL 80 MG ORAL TABLET 1 tab tue. and thur. PROPRANOLOL HCL 85434328370 No Longer Active Hope Benavidez MD PhD A ctive VITAMIN D3 4000 IU 1 tab 3 times daily VITAMIN D3 4000 IU No Longer Active Hope Benavidez MD PhD Active BACTRIM DS 800-160 MG ORAL TABLET 1 pill by mouth twice claudio y, for UTI SULFAMETHOXAZOLE-TRIMETHOPRIM 08308636569 No Longer Active Hope Benavidez MD PhD Active PROLIA 60 MG/ML SUBCUTANEOUS SOLUTION 1 shot every 6 months for osteoprosis DENOSUMAB 24585856184 Active Hope Benavidez MD PhD Active CALCIUM + D + K 750-500-40 MG-UNT-MCG ORAL TABLET 1 tab by m outh twice daily CALCIUM-VITAMIN D-VITAMIN K 42118279986 Active Hope valdze MD PhD Active DAILY VALUE MULTIVITAMIN ORAL TABLET 1 tab by mouth twice daily 201 05/16/14 MULTIPLE VITAMIN 24613546675 Active Hope Benavidez MD PhD Acti ve FISH OIL 306 MG CAPS 1 tab by mouth three times daily OMEGA-3 FATTY ACIDS 36105072636 Active Hope Benavidez MD PhD Active LUTEIN 10 MG ORAL TABLET 1 tab daily LUTEIN 14727280 408 Active Hope Benavidez MD PhD Active TRIAMTERENE-HCTZ 37.5-25 MG ORAL TABLET 1 tab by mouth daily 10/22 TRIAMTERENE-HCTZ 06934931431 Active Kylie Holt [employer]UCK BODY BUILDER APPRENTICE Active CYCLOBENZAPRINE HCL 10 MG ORAL TABLET 1 tablet by mout three times daily as needed for headaches CYCLOBENZAPRINE HCL 02231602211 No Longer Active Adam Yates MD Active OMEPRAZOLE 20 MG ORAL CAPSULE DELAYED RELEASE 1 tablet by mo [facility] daily for GERD OMEPRAZOLE 64151528421 No Longer Active Adam Yates MD Active ZOFRAN 8 MG ORAL TABLET 1 tab by mouth every 12 hours prn 4 ONDANSETRON HCL 20408718339 No Longer Active Adam Yates MD Active PHENADOZ 25 MG RECTAL SUPPOSITORY 1 every 4 hrs. PRN 2 PROMETHAZINE HCL 59082226990 No Longer Active Adam Yates MD A ctive POTASSIUM CHLORIDE 20 MEQ ORAL PACKET by mouth twice a day prn 2 POTASSIUM CHLORIDE 04915611236 No Longer Active Adam Carpenter MD Active PROMETHAZINE HCL 25 MG ORAL TABLET 1 Q. 4 hr. PRN PROMETHAZINE HCL 60704884953 No Longer Active Adam Yates MD Active INNOPRAN XL 120 MG ORAL CAPSULE EXTENDED RELEASE 24 HO UR Take one by mouth daily PROPRANOLOL HCL SR BEADS 48903181938 No Longer Active Adam Yates MD Active FLAGYL 500 MG ORAL TABLET 1 pill by mouth three times daily, for diarrhea METRONIDAZOLE 92015366091 No Longer Active Hope landers MD PhD Active DYAZIDE 37.5-25 MG ORAL CAPSULE 1 qd TRIA MTERENE-HCTZ 90380147103 No Longer Active Hope Benavidez MD PhD Active PROZAC 20 MG ORAL CAPSULE 1 q d FLUOXETINE HCL 15701949208 No Longer Active Hope Benavidez MD PhD Active SIMVASTATIN 40 MG ORAL TABLET 1 qd SIMVAS TATIN 75196295802 No Longer Active Adam Yates MD Active MELOXICAM 15 MG ORAL TABLET 1 qd MELOXICAM 62521666086 No Longer Active Adam Yates MD Active EXCEDRIN EXTRA STRENGTH 250-250-65 MG ORAL TABLET 1-2 q6h SC N headache [id number] 69129596349 Active Hope Benavidez MD PhD Active FLAGYL 500 MG ORAL TABLET 1 qid METRONIDAZOL E 65224832544 No Longer Active Adam Yates MD Active LEVAQUIN 750 MG ORAL TABLET 1 qd LEVOFLOXAC IN 41852594088 No Longer Active Adam Yates MD Active ADULT ASPIRIN LOW STRENGTH 81 MG ORAL TABLET DISINTEGRATING 1 qd ASPIRIN 53352173186 Active Hope Benavidez MD PhD Active LEVAQUIN 750 MG ORAL TABLET 1 qd LEVAQUIN 750 MG ORAL TABLET 665278 LEVOFLOXACIN Inactive FLAGYL 500 MG ORAL TABLET 1 qid FLAGYL 500 MG ORAL TABLET 929579 METRONIDAZOLE Inactive MELOXICAM 15 MG ORAL TABLET 1 qd MELOXICAM 15 MG ORAL TABLET 653506 MELOXICAM Inactive SIMVASTATIN 40 MG ORAL TABLET 1 qd SIMVASTATIN 40 MG ORAL TABLET 222347 SIMVASTATIN Inactive PROZAC 20 MG ORAL CAPSULE 1 q d PROZAC 20 MG ORAL CAPSULE 856420 FLUOXETINE HCL Inactive DYAZIDE 37.5-25 MG ORAL CAPSULE 1 qd 5 DYAZIDE 37.5-25 MG ORAL CAPSULE 655138 TRIAMTERENE-HCTZ Inactive INNOPRAN XL 120 MG ORAL CAPSULE EXTENDED RELEASE 24 HO UR Take one by mouth daily INNOPRAN XL 120 MG ORAL CAPSULE EXTENDED RELEASE 24 HOUR PROPRANOLOL HCL SR BEADS Inactive PROMETHAZINE HCL 25 MG ORAL TABLET 1 Q. 4 hr. PRN 2013 PROMETHAZINE HCL 25 MG ORAL TABLET 250350 PROMETHAZINE HCL Inactive POTASSIUM CHLORIDE 20 MEQ ORAL PACKET by mouth twice a day prn 2 POTASSIUM CHLORIDE 20 MEQ ORAL PACKET 8742450 POTASSIUM CHLORIDE Inactive PHENADOZ 25 MG RECTAL SUPPOSITORY 1 every 4 hrs. PRN 2 PHENADOZ 25 MG RECTAL SUPPOSITORY 332014 PROMETHAZINE HCL Inactive ZOFRAN 8 MG ORAL TABLET 1 tab by mouth every 12 hours prn 4 ZOFRAN 8 MG ORAL TABLET 839065 ONDANSETRON HCL Inactive OMEPRAZOLE 20 MG ORAL CAPSULE DELAYED RELEASE 1 tablet by mo uth daily for GERD OMEPRAZOLE 20 MG ORAL CAPSULE DELAYED RELEASE 19 8051 OMEPRAZOLE Inactive CYCLOBENZAPRINE HCL 10 MG ORAL TABLET 1 tablet by mout h three times daily as needed for headaches CYCLOBENZAPRINE HCL 10 MG ORAL TABLET 619928 CYCLOBENZAPRINE HCL Inactive VITAMIN D3 4000 IU 1 tab 3 times daily VITAMIN D3 4000 IU Inactive PROPRANOLOL HCL 80 MG ORAL TABLET 1 tab tue. and thur. PROPRANOLOL HCL 80 MG ORAL TABLET 738155 PROPRANOLOL HCL Inacti ve CYANOCOBALAMIN 1000 MCG/ML INJECTION SOLUTION 1 injection ev ruben 2 weeks CYANOCOBALAMIN 1000 MCG/ML INJECTION SOLUTION 30 9594 CYANOCOBALAMIN Inactive MAGNESIUM GLUCONATE 250 MG ORAL TABLET 1 tab tid 23/10/23 MAGNESIUM GLUCONATE 250 MG ORAL TABLET 750436 MAGNESIUM GLUCONATE Inactive LOMOTIL 2.5-0.025 MG ORAL TABLET 1 tab by mouth prn 23/10/23 LOMOTIL 2.5-0.025 MG ORAL TABLET 0966045 DIPHENOXYLATE-ATROPINE Inac tive FLORANEX ORAL PACKET 1 pack three times daily, for bowel health FLORANEX ORAL PACKET 73774886741 LACTOBACILLUS Inactive IRON 325 (65 Fe) MG ORAL TABLET 1 every other day 2015 IRON 325 (65 Fe) MG ORAL TABLET 826736 FERROUS SULFATE Inactive FLAGYL 500 MG ORAL TABLET 1 pill by mouth three times daily, for diarrhea FLAGYL 500 MG ORAL TABLET 219712 METRONIDAZOLE I nactive BACTRIM DS 800-160 MG ORAL TABLET 1 pill by mouth twice claudio y, for UTI BACTRIM DS 800-160 MG ORAL TABLET 266195 SULFAMETHOXAZOLE-TRIMETHOPRIM Inactive Advance Directives Directive Description Start [...] ... - Chemistry sodium, serum 141 mmol/L 866-284 3840/01/10 potassium, serum 3.7 mmol/L 3.5-5.2 chloride, serum 101 mmol/L 98-107 carbon dioxide, venous blood 31.0 mmol/L 21.0-32 .0 blood glucose 96 mg/dL 65-95 calcium, serum 9.5 mg/dL 8.5-10.1 urea nitrogen, blood 21 mg/dL 7-18 creatinine, serum 1.40 mg/dL 0.60-1.30 Estimated Glomerular Filtration Rate (calc) 39 (?) mL/min/1.73m2 = OR > 60 mL/min cholesterol, serum 211 mg/dL 337-658 0381/01/10 triglyceride, serum, fasting 77 mg/dL 30-200 HDL [...] - Chem istry sodium, serum 142 mmol/L 785-779 7962/04/19 carbon dioxide, venous blood 30.2 mmol/L 21.0-32 [...] - Chelle radha sodium, serum 142 mmol/L 322-483 3733/11/02 potassium, serum 3.4 mmol/L 3.5-5.2 chloride, serum [...] mg/dL Encounters Code Encounter Date Provider Facility CPT-87672 Level 3 New Patient 12:08:54 JUNIOR PROJECT COORDINATOR Adam Yates MD [facility] CPT-92213 [id number] Vst-Est Level IV 19:48:30 JUNIOR PROJECT COORDINATOR Tracy Holt [facility] [place] CPT-58142 [id number] Vst-Est Level III 14:29:19 CDT Fiorella Holt [facility] [place] CPT-39175 Level 2 Est. Patient 14:58:26 CDT Kylie Lund [facility] [place] CPT-31400 Level 3 Est. Patient 08:15:24 JUNIOR PROJECT COORDINATOR Kylie Lund [facility] [place] CPT-75146 Level 2 Est. Patient 14:27:16 JUNIOR PROJECT COORDINATOR Kylie Lund [facility] [place] CPT-34891 Level 3 Est. Patient 17:54:48 CDT Kylie Lund [facility] [place] CPT-08947 Level 3 Est. Patient 16:26:30 CDT Kina blackmon [facility] CPT-10843 Level 3 New Patient 16:22:01 JUNIOR PROJECT COORDINATOR Adam Yates MD [facility] CPT-70256 Level 4 Est. Patient 17:00:48 CDT Kylie Lund [facility] CPT-12388 Level 3 Est. Patient 13:15:54 CDT Kylie Lund [facility] CPT-82698 Level 3 Est. Patient 09:10:11 CDT Kylie Lnud [facility] CPT-77799 Level 4 Est. Patient 12:08:30 JUNIOR PROJECT COORDINATOR Hope cohn MD [facility] CPT-70095 Level 4 Est. Patient 19:08:42 JUNIOR PROJECT COORDINATOR Hope cohn MD [facility] CPT-75616 Level 4 Est. Patient 20:04:51 CDT Hope cohn MD [facility] CPT-54310 Level 3 New Patient 01:46:11 JUNIOR PROJECT COORDINATOR Hope landers MD PhD [facility] Procedures Code Procedure Name Date Entry Date Standard Desc ription CPT-75405 Sono Soft Tissue Head and Neck - XRAY US E ONLY 11:56:06 JUNIOR PROJECT COORDINATOR CPT-13916 Abx/Therapy Injection 09:40:08 JUNIOR PROJECT COORDINATOR CPT-J0897 Prolia 60 mg 09:40:08 JUNIOR PROJECT COORDINATOR CPT-20411 First Vx - Ix admin for Medicare patients 02/08 10:02:45 CDT CPT-45591 Fluzone Quadrivalent Intramuscular Suspe nsion 0.5 ML 10:02:45 CDT CPT-93880 Magnesium - LAB USE ONLY 09:41:00 CDT 12/09 CPT-55129 Renal Panel - LAB USE ONLY 09:41:00 CDT 201 09/17/01 CPT-54018 Venipuncture Draw Fee 09:41:00 CDT CPT-08661 Calcium - LAB USE ONLY 17:25:11 CDT CPT-J0897 Prolia 60 mg 15:10:59 CDT CPT-36088 Abx/Therapy Injection 15:10:59 CDT CPT-G0439 Subsequent Annual Wellness Exam 14:29:19 CDT CPT-01286 Venipuncture Draw Fee 10:59:04 CDT CPT-12646 CMP - LAB USE ONLY 10:59:04 CDT CPT-02626 CBC with Diff - LAB USE ONLY 10:59:03 CDT 2 CPT-J0897 Prolia 60 mg 15:46:54 JUNIOR PROJECT COORDINATOR CPT-35463 Abx/Therapy Injection 15:46:54 JUNIOR PROJECT COORDINATOR CPT-41774 Microalbumin - LAB USE ONLY 09:41:32 JUNIOR PROJECT COORDINATOR 20 23/01/15 CPT-40197 Free T4 - LAB USE ONLY 09:41:32 JUNIOR PROJECT COORDINATOR CPT-79708 TSH - LAB USE ONLY 09:41:32 JUNIOR PROJECT COORDINATOR CPT-29327 BMP - LAB USE ONLY 09:41:32 JUNIOR PROJECT COORDINATOR CPT-69681 Venipuncture Draw Fee 09:41:32 JUNIOR PROJECT COORDINATOR CPT-89370 First Vx - Ix admin for Medicare patients 11:19:30 CDT CPT-65312 Fluzone High-Dose Intramuscular Suspension 12/07 11:19:30 CDT CPT-J0897 Prolia 60 mg 14:55:42 CDT CPT-23944 Abx/Therapy Injection 14:55:42 CDT CPT-92312 Bone Density - XRAY USE ONLY 10:27:12 CDT 2 CPT-G0439 Subsequent Annual Wellness Exam 17:54:53 CDT CPT-81995 Foot, left, comp min 3V - XRAY USE ONLY 12:22:49 CDT CPT-G0009 Administration of Pneumococcal Vaccine 3 12:18:00 CDT CPT-90263 Pneumovax 23 Injection Injectable 25 MCG /0.5ML 12:18:00 CDT CPT-J0897 Prolia 60 mg 14:14:16 JUNIOR PROJECT COORDINATOR CPT-42562 Abx/Therapy Injection 14:14:15 JUNIOR PROJECT COORDINATOR CPT-41451 Lipid - LAB USE ONLY 10:01:52 JUNIOR PROJECT COORDINATOR 2 CPT-77653 Calcium - LAB USE ONLY 10:01:51 JUNIOR PROJECT COORDINATOR CPT-86111 Venipuncture Draw Fee 10:01:51 JUNIOR PROJECT COORDINATOR CPT-LR Lesion Removal 16:22:01 JUNIOR PROJECT COORDINATOR CPT-08035 TSH - LAB USE ONLY 14:26:02 CDT CPT-83708 CMP - LAB USE ONLY 14:26:01 CDT CPT-26590 CBC with Diff - LAB USE ONLY 14:26:01 CDT 2 CPT-14792 Venipuncture Draw Fee 14:26:01 CDT CPT-09914 First Vx - Ix admin for Medicare patients 13:27:08 CDT CPT-22612 Fluzone High-Dose Intramuscular Suspension 11/26 13:27:08 CDT CPT-G0438 Initial Annual Wellness Exam 14:19:57 CD T CPT-G0009 Administration of Pneumococcal Vaccine 9 11:36:25 CDT CPT-36271 Prevnar 13 Intramuscular Suspension 1 1:36:25 CDT CPT-18938 Prevnar 13 Intramuscular Suspension 1 0:40:58 CDT CPT-J0897 Prolia 60 mg 10:37:16 CDT CPT-73109 Abx/Therapy Injection 10:37:16 CDT CPT-J0897 Prolia 60 mg 16:09:34 JUNIOR PROJECT COORDINATOR CPT-J0897 Prolia 60 mg 11:10:35 JUNIOR PROJECT COORDINATOR CPT-25598 Abx/Therapy Injection 11:10:35 JUNIOR PROJECT COORDINATOR CPT-000 Give Appropriate Flu Vaccine 17:01:15 JUNIOR PROJECT COORDINATOR 2 CPT-59635 Fluzone High Dose (65+) 15:03:08 JUNIOR PROJECT COORDINATOR 02/15 CPT-12733 Immunization Single Admin 15:03:08 JUNIOR PROJECT COORDINATOR 2014 CPT-OV Office Visit 15:58:06 CDT CPT-J0897 Prolia 60 mg 08:45:38 CDT CPT-52846 Abx/Therapy Injection 08:45:38 CDT CPT-J3420 Vitamin B12 1000mcg (Cyanocobalamin) 09:26:20 JUNIOR PROJECT COORDINATOR CPT-47598 Abx/Therapy Injection 09:26:20 JUNIOR PROJECT COORDINATOR CPT-J3420 Vitamin B12 1000mcg (Cyanocobalamin) 09:44:40 JUNIOR PROJECT COORDINATOR CPT-98737 Abx/Therapy Injection 09:44:40 JUNIOR PROJECT COORDINATOR CPT-J3420 Vitamin B12 1000mcg (Cyanocobalamin) 09:15:54 JUNIOR PROJECT COORDINATOR CPT-66564 Abx/Therapy Injection 09:15:54 JUNIOR PROJECT COORDINATOR CPT-J3420 Vitamin B12 1000mcg (Cyanocobalamin) 09:46:44 JUNIOR PROJECT COORDINATOR CPT-48781 Abx/Therapy Injection 09:46:44 JUNIOR PROJECT COORDINATOR CPT-J3420 Vitamin B12 1000mcg (Cyanocobalamin) 09:47:34 JUNIOR PROJECT COORDINATOR CPT-61890 Abx/Therapy Injection 09:47:34 JUNIOR PROJECT COORDINATOR CPT-J3420 Vitamin B12 1000mcg (Cyanocobalamin) 14:35:50 JUNIOR PROJECT COORDINATOR CPT-J3420 Vitamin B12 1000mcg (Cyanocobalamin) 09:25:05 JUNIOR PROJECT COORDINATOR CPT-56586 Abx/Therapy Injection 09:25:05 JUNIOR PROJECT COORDINATOR CPT-G0008 Administration of Influenza Virus Vaccine 13:36:47 CDT CPT-99458 Fluzone High-Dose Intramuscular Suspension 11/15 13:36:47 CDT CPT-J0897 Prolia 60 mg 08:50:41 CDT CPT-06220 Abx/Therapy Injection 08:50:41 CDT CPT-15121 Bone Density 12:06:12 CDT CPT-92609 Bone Density 08:54:40 CDT CPT-OV Office Visit 15:37:02 CDT CPT-61853 Postop F/U Visit 15:47:49 CDT CPT-53071 Postop F/U Visit 15:21:02 CDT CPT-[facility] Transitional Care Mgmt-High 07:52:27 CDT 20 20/06/01 CPT-91362 Venipuncture Draw Fee 13:51:18 CDT CPT-15779 Venipuncture Draw Fee 10:14:55 JUNIOR PROJECT COORDINATOR CPT-59407 Venipuncture Draw Fee 13:39:45 JUNIOR PROJECT COORDINATOR CPT-OV Office Visit 15:11:22 JUNIOR PROJECT COORDINATOR CPT-85397 Venipuncture Draw Fee 09:20:49 JUNIOR PROJECT COORDINATOR CPT-28726 Venipuncture Draw Fee 16:52:15 JUNIOR PROJECT COORDINATOR CPT-45967 Venipuncture Draw Fee 10:37:24 JUNIOR PROJECT COORDINATOR CPT-87034 Venipuncture Draw Fee 08:21:21 JUNIOR PROJECT COORDINATOR CPT-74504 Venipuncture Draw Fee 08:30:20 JUNIOR PROJECT COORDINATOR CPT-04381 Venipuncture Draw Fee 14:53:21 JUNIOR PROJECT COORDINATOR CPT-92827 Venipuncture Draw Fee 09:40:56 JUNIOR PROJECT COORDINATOR CPT-26900 Venipuncture Draw Fee 10:30:47 JUNIOR PROJECT COORDINATOR CPT-92409 Venipuncture Draw Fee 10:46:17 JUNIOR PROJECT COORDINATOR CPT-66905 Venipuncture Draw Fee 11:12:45 JUNIOR PROJECT COORDINATOR CPT-97022 Venipuncture Draw Fee 09:53:33 JUNIOR PROJECT COORDINATOR CPT-70199 Venipuncture Draw Fee 11:53:51 JUNIOR PROJECT COORDINATOR CPT-26112 Venipuncture Draw Fee 10:33:50 JUNIOR PROJECT COORDINATOR CPT-40696 Venipuncture Draw Fee 10:05:01 JUNIOR PROJECT COORDINATOR CPT-76806 Venipuncture Draw Fee 14:32:52 JUNIOR PROJECT COORDINATOR CPT-16557 Venipuncture Draw Fee 09:46:13 JUNIOR PROJECT COORDINATOR CPT-96997 Venipuncture Draw Fee 11:34:27 JUNIOR PROJECT COORDINATOR CPT-49243 Venipuncture Draw Fee 13:17:16 JUNIOR PROJECT COORDINATOR CPT-33799 Venipuncture Draw Fee 12:05:39 CDT CPT-48969 Venipuncture Draw Fee 12:49:12 CDT CPT-89221 Venipuncture Draw Fee 12:37:18 CDT CPT-75948 Venipuncture Draw Fee 10:57:11 CDT CPT-68046 Venipuncture Draw Fee 13:47:40 CDT CPT-55463 Venipuncture Draw Fee 10:02:17 CDT CPT-35460 TB Tubersol 17:32:32 CDT CPT-OV Office Visit 16:21:53 CDT CPT-OV Office Visit 15:49:22 CDT CPT-OV Office Visit 17:16:31 CDT CPT-OV Office Visit 10:43:31 CDT
--- OUTSIDE RECORDS SUMMARY | 2019-02-09 11:59 | XMS REPORT | Clinical Summary ---
Author Author Renaldo, Florecita Munoz Organization [facility] Address Unknown Phone Unavailable Allergies, Adverse Reactions, [...] neoplasm of ascending colon Hyperkalemia 276.7 Resolved oHpe Benavidez MD PhD Hyperpotassemia GERD 530.81 Resolved Kylie Yokum [employer] Esophageal reflux Health maintenance exam V70.0 Resolved Adolfo Yates MD Routine general medical examination at a health care facility Anemia 285.9 Resolved Kylie Yanet [employer] Anemia, unspecified Personal history of malignant neoplasm of large intestine V10.05 Active Adam Yates MD Personal history of malignant neoplasm of large intestine Hypomagnesemia 275.2 Resolved Kylie Yanet [employer] Disorders of magnesium metabolism Weakness 780.79 Resolved [...] Sebaceous cyst, scalp 706.2 Resolved Kylie Yokum [employer] Sebaceous cyst Cervical lymphadenopathy, anterior, left 785.6 Resolv ed Kylie Yokum [employer] Enlargement of lymph nodes Need for prophylactic vaccination and inoculation against in fluenza V04.81 Resolved Adam Yates MD Need for prophylactic vaccination and inoculation against influenza Preventive health care V70.0 Resolved Kylie Yoku m [employer] Routine general medical examination at a health care facility Thyroid nodule, left 241.0 Active Kylie Yokum A PRN Nontoxic uninodular goiter Screening mammogram V76.12 Resolved Kylie Yokum A PRN Other screening mammogram Mandy 706.2 Resolved Kylie Yokum [employer] Sebaceous cyst Colon cancer, ascending 153.6 Resolved Kylie Yok um [employer] Malignant neoplasm of ascending colon Foot pain, left 729.5 Resolved Kylie Yokum [employer] Pain in limb Splinter 919.6 Resolved Kylie Yokum [employer] Superficial foreign body (splinter) of other, multiple, and unspecified sites, without major open wound and without mention of infection Rash 782.1 Resolved Kylie Yokum [employer] Rash and other nonspecific skin eruption Cyst 706.2 Resolved Kylie Yokum [employer] Sebaceous cyst Body Mass Index 23.0-23.9 Adult Refinement 2017 Kylie Yokum [employer] Body Mass Index between 19-24, adult BMI [...] RN Hypopotassemia Enlarged thyroid 240.9 Active Citlaly Marmolejoford RM A Goiter, unspecified Underweight Active Adam Yates MD Underweight ADENOCARCINOMA, COLON, 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 Dick Yates MD ABDOMINAL PAIN, RIGHT LOWER QUADRANT ICD-789.03 Inactive Kina Tres [employer] UNSPECIFIED VENOUS INSUFFICIENCY ICD-459.81 [place] ctive Adam Yates MD ABDOMINAL PAIN, GENERALIZED ICD-789.07 Inactive Hope Benavidez MD PhD ADENOCARCINOMA, 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 Inac tive Hope Benavidez MD PhD Hyperkalemia ICD-276.7 Inactive Hope Benavidez MD PhD FEVER UNSPECIFIED ICD-780.60 Inactive Hope cohn MD PhD Health maintenance exam ICD-V70.0 Bam Yates MD Anemia ICD-285.9 Inactive Kylie Yokum [employer] 07/24 GERD ICD-530.81 Inactive Kylie Yokum [employer] 2015 Hypomagnesemia ICD-275.2 Inactive Kylie Yokum [employer] Weakness ICD-780.79 Inactive Hope Benavidez MD P [...] cyst, scalp ICD-706.2 Inactive Tracy hi Yokum [employer] Cervical lymphadenopathy, anterior, left ICD-785.6 Inactive Kylie Yokum [employer] Need for prophylactic vaccination and inoculation against in fluenza ICD-V04.81 Bam Yates MD Diarrhea, functional ICD-564.5 Inactive Selena Yates MD Mandy ICD-706.2 Inactive Kylie Yokum [employer] 07/20 Colon cancer, ascending ICD-153.6 Inactive K umang Holt [employer] Foot pain, left ICD-729.5 Inactive Kylie Lundum [employer] Splinter ICD-919.6 Inactive Kylie Lundum [employer] 2017 Rash ICD-782.1 Inactive Kylie Lundum [employer] 07/25 Cyst ICD-706.2 Inactive Kylie Holt [employer] 08/11 Unspecified fall, initial encounter ICD-E888.9 Inactive Kylie Holt [employer] Eye pain, left ICD-379.91 Inactive Kylie Holt [employer] Preventive health care ICD-V70.0 Inactive Fiorella Holt [employer] Screening mammogram ICD-V76.12 Inactive Kylie Holt [employer] Medication List Medication Instructions Start Date Stop Date Generic Name NDC Status Provider Patient Instruction VOLTAREN 1 % TRANSDERMAL GEL apply 2 grams q 6-8 hour to left arm as needed for pain DICLOFENAC SODIUM 09793743127 Active Kylie Holt APR N Active IMODIUM A-D 2 MG ORAL TABLET 1 tablet twice a day LOPERAMIDE HCL 75466751777 Active Kylie Holt APRN Active COQ10 100 MG ORAL CAPSULE 1 daily COENZYME Q10 468605 46834 Active LETY Nation Active VITAMIN D3 2000 UNIT ORAL CAPSULE Melaleuca-One daily CHOLECALCIFEROL 96237632592 Active Kylie Holt APRN Active PROBIOTIC DAILY ORAL CAPSULE Take one daily PROBIO TIC PRODUCT 28128594474 Active Kylie Holt APRN Active IRON 325 (65 Fe) MG ORAL TABLET 1 every other day FERROUS SULFATE 01928122252 No Longer Active Kylie Yokum [employer] Active FLORANEX ORAL PACKET 1 pack three times daily, for bowel health LACTOBACILLUS 22891605470 No Longer Active Kylie Yokum [employer] Active LOMOTIL 2.5-0.025 MG ORAL TABLET 1 tab by mouth prn 20 23/10/23 DIPHENOXYLATE-ATROPINE 23177197060 No Longer Active Kylie Yokum [employer] Active MAGNESIUM GLUCONATE 250 MG ORAL TABLET 1 tab tid 23/10/23 MAGNESIUM GLUCONATE 75637099859 No Longer Active Kylie Yokum [employer] Active CYANOCOBALAMIN 1000 MCG/ML INJECTION SOLUTION 1 injection ev ruben 2 weeks CYANOCOBALAMIN 15007443993 No Longer Active Kylie Yok um [employer] Active ATENOLOL 25 MG ORAL TABLET 1/2 pill by mouth daily, fo r headaches, blood pressure ATENOLOL 32619756818 Active Kylie Yokum [employer] Active PROPRANOLOL HCL 80 MG ORAL TABLET 1 tab tue. and thur. PROPRANOLOL HCL 79142255555 No Longer Active Hope Benavidez MD PhD A ctive VITAMIN D3 4000 IU 1 tab 3 times daily VITAMIN D3 4000 IU No Longer Active Hope Benavidez MD PhD Active BACTRIM DS 800-160 MG ORAL TABLET 1 pill by mouth twice claudio y, for UTI SULFAMETHOXAZOLE-TRIMETHOPRIM 28555319078 No Longer Active Hope Benavidez MD PhD Active PROLIA 60 MG/ML SUBCUTANEOUS SOLUTION 1 shot every 6 months for osteoprosis DENOSUMAB 23158175056 Active Hope Benavidez MD PhD Active CALCIUM + D + K 750-500-40 MG-UNT-MCG ORAL TABLET 1 tab by m harvinder twice daily CALCIUM-VITAMIN D-VITAMIN K 06878498429 Active Hope valdez MD PhD Active DAILY VALUE MULTIVITAMIN ORAL TABLET 1 tab by mouth twice daily 201 05/16/14 MULTIPLE VITAMIN 03438512373 Active Hope Benavidez MD PhD Acti ve FISH OIL 306 MG CAPS 1 tab by mouth three times daily OMEGA-3 FATTY ACIDS 90452139571 Active Hope Benavidez MD PhD Active LUTEIN 10 MG ORAL TABLET 1 tab daily LUTEIN 70449231 408 Active Hope Benavidez MD PhD Active TRIAMTERENE-HCTZ 37.5-25 MG ORAL TABLET 1 tab by mouth daily 10/22 TRIAMTERENE-HCTZ 84307467564 Active Kylie Holt [employer] Active CYCLOBENZAPRINE HCL 10 MG ORAL TABLET 1 tablet by mout three times daily as needed for headaches CYCLOBENZAPRINE HCL 34026285847 No Longer Active Adam Yates MD Active OMEPRAZOLE 20 MG ORAL CAPSULE DELAYED RELEASE 1 tablet by mo [facility] daily for GERD OMEPRAZOLE 50426632345 No Longer Active Adam Yates MD Active ZOFRAN 8 MG ORAL TABLET 1 tab by mouth every 12 hours prn 4 ONDANSETRON HCL 17729689725 No Longer Active Adam Yates MD Active PHENADOZ 25 MG RECTAL SUPPOSITORY 1 every 4 hrs. PRN 2 PROMETHAZINE HCL 57226277969 No Longer Active Adam Yates MD A ctive POTASSIUM CHLORIDE 20 MEQ ORAL PACKET by mouth twice a day prn 2 POTASSIUM CHLORIDE 24765309153 No Longer Active Adam Carpenter MD Active PROMETHAZINE HCL 25 MG ORAL TABLET 1 Q. 4 hr. PRN PROMETHAZINE HCL 96109154451 No Longer Active Adam Yates MD Active INNOPRAN XL 120 MG ORAL CAPSULE EXTENDED RELEASE 24 HO UR Take one by mouth daily PROPRANOLOL HCL SR BEADS 18221767076 No Longer Active Adam Yates MD Active FLAGYL 500 MG ORAL TABLET 1 pill by mouth three times daily, for diarrhea METRONIDAZOLE 82211011837 No Longer Active Hope landers MD PhD Active DYAZIDE 37.5-25 MG ORAL CAPSULE 1 qd TRIA MTERENE-HCTZ 79116718501 No Longer Active Hope Benavidez MD PhD Active PROZAC 20 MG ORAL CAPSULE 1 q d FLUOXETINE HCL 62940703419 No Longer Active Hope Benavidez MD PhD Active SIMVASTATIN 40 MG ORAL TABLET 1 qd SIMVAS TATIN 28473775154 No Longer Active Adam Yates MD Active MELOXICAM 15 MG ORAL TABLET 1 qd MELOXICAM 28941823377 No Longer Active Adam Yates MD Active EXCEDRIN EXTRA STRENGTH 250-250-65 MG ORAL TABLET 1-2 q6h VA N headache MHRGIEN-LCLQVGRFXNPOV-QQGQCHNT 48373239537 Active Hope Benavidez MD PhD Active FLAGYL 500 MG ORAL TABLET 1 qid METRONIDAZOL E 52657494650 No Longer Active Adam Yates MD Active LEVAQUIN 750 MG ORAL TABLET 1 qd LEVOFLOXAC IN 26238261446 No Longer Active Adam Yates MD Active ADULT ASPIRIN LOW STRENGTH 81 MG ORAL TABLET DISINTEGRATING 1 qd ASPIRIN 29721746015 Active Hope Benavidez MD PhD Active LEVAQUIN 750 MG ORAL TABLET 1 qd LEVAQUIN 750 MG ORAL TABLET 306517 LEVOFLOXACIN Inactive FLAGYL 500 MG ORAL TABLET 1 qid FLAGYL 500 MG ORAL TABLET 277155 METRONIDAZOLE Inactive MELOXICAM 15 MG ORAL TABLET 1 qd MELOXICAM 15 MG ORAL TABLET 326398 MELOXICAM Inactive SIMVASTATIN 40 MG ORAL TABLET 1 qd SIMVASTATIN 40 MG ORAL TABLET 911199 SIMVASTATIN Inactive PROZAC 20 MG ORAL CAPSULE 1 q d PROZAC 20 MG ORAL CAPSULE 040104 FLUOXETINE HCL Inactive DYAZIDE 37.5-25 MG ORAL CAPSULE 1 qd 5 DYAZIDE 37.5-25 MG ORAL CAPSULE 853050 TRIAMTERENE-HCTZ Inactive INNOPRAN XL 120 MG ORAL CAPSULE EXTENDED RELEASE 24 HO UR Take one by mouth daily INNOPRAN XL 120 MG ORAL CAPSULE EXTENDED RELEASE 24 HOUR PROPRANOLOL HCL SR BEADS Inactive PROMETHAZINE HCL 25 MG ORAL TABLET 1 Q. 4 hr. PRN 2013 PROMETHAZINE HCL 25 MG ORAL TABLET 726795 PROMETHAZINE HCL Inactive POTASSIUM CHLORIDE 20 MEQ ORAL PACKET by mouth twice a day prn 2 POTASSIUM CHLORIDE 20 MEQ ORAL PACKET 0196791 POTASSIUM CHLORIDE Inactive PHENADOZ 25 MG RECTAL SUPPOSITORY 1 every 4 hrs. PRN 2 PHENADOZ 25 MG RECTAL SUPPOSITORY 291792 PROMETHAZINE HCL Inactive ZOFRAN 8 MG ORAL TABLET 1 tab by mouth every 12 hours prn 4 ZOFRAN 8 MG ORAL TABLET 648428 ONDANSETRON HCL Inactive OMEPRAZOLE 20 MG ORAL CAPSULE DELAYED RELEASE 1 tablet by mo uth daily for GERD OMEPRAZOLE 20 MG ORAL CAPSULE DELAYED RELEASE 19 8051 OMEPRAZOLE Inactive CYCLOBENZAPRINE HCL 10 MG ORAL TABLET 1 tablet by mout h three times daily as needed for headaches CYCLOBENZAPRINE HCL 10 MG ORAL TABLET 198027 CYCLOBENZAPRINE HCL Inactive VITAMIN D3 4000 IU 1 tab 3 times daily VITAMIN D3 4000 IU Inactive PROPRANOLOL HCL 80 MG ORAL TABLET 1 tab tue. and thur. PROPRANOLOL HCL 80 MG ORAL TABLET 448893 PROPRANOLOL HCL Inacti ve CYANOCOBALAMIN 1000 MCG/ML INJECTION SOLUTION 1 injection ev ruben 2 weeks CYANOCOBALAMIN 1000 MCG/ML INJECTION SOLUTION 30 9594 CYANOCOBALAMIN Inactive MAGNESIUM GLUCONATE 250 MG ORAL TABLET 1 tab tid 23/10/23 MAGNESIUM GLUCONATE 250 MG ORAL TABLET 704875 MAGNESIUM GLUCONATE Inactive LOMOTIL 2.5-0.025 MG ORAL TABLET 1 tab by mouth prn 23/10/23 LOMOTIL 2.5-0.025 MG ORAL TABLET 9259155 DIPHENOXYLATE-ATROPINE Inac tive FLORANEX ORAL PACKET 1 pack three times daily, for bowel health FLORANEX ORAL PACKET 30930059952 LACTOBACILLUS Inactive IRON 325 (65 Fe) MG ORAL TABLET 1 every other day 2015 IRON 325 (65 Fe) MG ORAL TABLET 361827 FERROUS SULFATE Inactive FLAGYL 500 MG ORAL TABLET 1 pill by mouth three times daily, for diarrhea FLAGYL 500 MG ORAL TABLET 866706 METRONIDAZOLE I nactive BACTRIM DS 800-160 MG ORAL TABLET 1 pill by mouth twice claudio y, for UTI BACTRIM DS 800-160 MG ORAL TABLET 624393 SULFAMETHOXAZOLE-TRIMETHOPRIM Inactive Advance Directives Directive Description Start [...] ... - Chemistry sodium, serum 141 mmol/L 923-603 2285/01/10 potassium, serum 3.7 mmol/L 3.5-5.2 chloride, serum 101 mmol/L 98-107 carbon dioxide, venous blood 31.0 mmol/L 21.0-32 .0 blood glucose 96 mg/dL 65-95 calcium, serum 9.5 mg/dL 8.5-10.1 urea nitrogen, blood 21 mg/dL 7-18 creatinine, serum 1.40 mg/dL 0.60-1.30 Estimated Glomerular Filtration Rate (calc) 39 (?) mL/min/1.73m2 = OR > 60 mL/min cholesterol, serum 211 mg/dL 799-909 3993/01/10 triglyceride, serum, fasting 77 mg/dL 30-200 HDL [...] Report: Comp. Metabolic Panel - Chem istry chloride, serum 101 mmol/L 98-107 potassium, serum 3.8 mmol/L 3.5-5.2 carbon dioxide, venous blood 30.2 mmol/L 21.0-32 .0 sodium, serum 142 mmol/L 168-323 9266/04/19 alanine aminotransferase (SGPT), serum 27 U/L 12-78 creatinine, serum 1.33 mg/dL 0.60-1.30 urea nitrogen, blood 23 mg/dL 7-18 aspartate aminotransferase (SGOT), serum 24 U/L 15-37 calcium, serum 9.4 mg/dL 8.5-10.1 bilirubin, serum, total 0.80 mg/dL 0.00-1.00 blood glucose 97 mg/dL 65-110 Lab Report: Renal Panel, Magnesium - Chelle radha blood glucose 81 mg/dL 65-95 sodium, serum 142 mmol/L 445-261 8547/11/02 potassium, serum 3.4 mmol/L 3.5-5.2 chloride, serum 101 mmol/L 98-107 carbon dioxide, venous blood 31.5 mmol/L 21.0-32 .0 creatinine, serum 1.35 mg/dL 0.60-1.30 urea nitrogen, blood 17 mg/dL 7-18 calcium, [...] mg/dL Encounters Code Encounter Date Provider Facility CPT-61360 Level 3 New Patient 12:08:54 FIREARMS INSPECTOR Adam Yates MD [facility] CPT-43982 [id number] Vst-Est Level IV 19:48:30 FIREARMS INSPECTOR Tracy Holt [facility] CPT-92016 [id number] Vst-Est Level III 14:29:19 CDT Fiorella Holt [facility] CPT-13402 Level 2 Est. Patient 14:58:26 CDT Kylie Lund [facility] CPT-05506 Level 3 Est. Patient 08:15:24 FIREARMS INSPECTOR Kylie Lund [facility] CPT-53057 Level 2 Est. Patient 14:27:16 FIREARMS INSPECTOR Kylie Lund [facility] CPT-15378 Level 3 Est. Patient 17:54:48 CDT Kylie Lund [facility] CPT-98956 Level 3 Est. Patient 16:26:30 CDT Kina blackmon [facility] CPT-98900 Level 3 New Patient 16:22:01 FIREARMS INSPECTOR Adam Yates MD [facility] CPT-08308 Level 4 Est. Patient 17:00:48 CDT Kylie Lund [facility] CPT-18368 Level 3 Est. Patient 13:15:54 CDT Kylie Lund [facility] CPT-73684 Level 3 Est. Patient 09:10:11 CDT Kylie Lund [facility] CPT-61516 Level 4 Est. Patient 12:08:30 FIREARMS INSPECTOR Hope cohn MD [facility] CPT-85647 Level 4 Est. Patient 19:08:42 FIREARMS INSPECTOR Hope cohn MD [facility] CPT-93462 Level 4 Est. Patient 20:04:51 CDT Hope cohn MD PhD [facility] CPT-22688 Level 3 New Patient 01:46:11 FIREARMS INSPECTOR Hope landers MD PhD [facility] Procedures Code Procedure Name Date Entry Date Standard Desc ription CPT-72109 Sono Soft Tissue Head and Neck - XRAY US E ONLY 11:56:06 FIREARMS INSPECTOR CPT-86891 Abx/Therapy Injection 09:40:08 FIREARMS INSPECTOR CPT-J0897 Prolia 60 mg 09:40:08 FIREARMS INSPECTOR CPT-95841 First Vx - Ix admin for Medicare patients 02/08 10:02:45 CDT CPT-45453 Fluzone Quadrivalent Intramuscular Suspe nsion 0.5 ML 10:02:45 CDT CPT-41759 Magnesium - LAB USE ONLY 09:41:00 CDT 12/09 CPT-97674 Renal Panel - LAB USE ONLY 09:41:00 CDT 201 09/17/01 CPT-09361 Venipuncture Draw Fee 09:41:00 CDT CPT-53390 Calcium - LAB USE ONLY 17:25:11 CDT CPT-J0897 Prolia 60 mg 15:10:59 CDT CPT-03123 Abx/Therapy Injection 15:10:59 CDT CPT-G0439 Subsequent Annual Wellness Exam 14:29:19 CDT CPT-32173 Venipuncture Draw Fee 10:59:04 CDT CPT-84551 CMP - LAB USE ONLY 10:59:04 CDT CPT-60168 CBC with Diff - LAB USE ONLY 10:59:03 CDT 2 CPT-J0897 Prolia 60 mg 15:46:54 FIREARMS INSPECTOR CPT-81054 Abx/Therapy Injection 15:46:54 FIREARMS INSPECTOR CPT-36127 Microalbumin - LAB USE ONLY 09:41:32 FIREARMS INSPECTOR 20 23/01/15 CPT-36055 Free T4 - LAB USE ONLY 09:41:32 FIREARMS INSPECTOR CPT-77121 TSH - LAB USE ONLY 09:41:32 FIREARMS INSPECTOR CPT-00337 BMP - LAB USE ONLY 09:41:32 FIREARMS INSPECTOR CPT-38941 Venipuncture Draw Fee 09:41:32 FIREARMS INSPECTOR CPT-22719 First Vx - Ix admin for Medicare patients 11:19:30 CDT CPT-03303 Fluzone High-Dose Intramuscular Suspension 12/07 11:19:30 CDT CPT-J0897 Prolia 60 mg 14:55:42 CDT CPT-10374 Abx/Therapy Injection 14:55:42 CDT CPT-26960 Bone Density - XRAY USE ONLY 10:27:12 CDT 2 CPT-G0439 Subsequent Annual Wellness Exam 17:54:53 CDT CPT-04664 Foot, left, comp min 3V - XRAY USE ONLY 12:22:49 CDT CPT-G0009 Administration of Pneumococcal Vaccine 3 12:18:00 CDT CPT-98526 Pneumovax 23 Injection Injectable 25 MCG /0.5ML 12:18:00 CDT CPT-J0897 Prolia 60 mg 14:14:16 FIREARMS INSPECTOR CPT-38818 Abx/Therapy Injection 14:14:15 FIREARMS INSPECTOR CPT-15965 Lipid - LAB USE ONLY 10:01:52 FIREARMS INSPECTOR 2 CPT-42853 Calcium - LAB USE ONLY 10:01:51 FIREARMS INSPECTOR CPT-46479 Venipuncture Draw Fee 10:01:51 FIREARMS INSPECTOR CPT-LR Lesion Removal 16:22:01 FIREARMS INSPECTOR CPT-04360 TSH - LAB USE ONLY 14:26:02 CDT CPT-87421 CMP - LAB USE ONLY 14:26:01 CDT CPT-26843 CBC with Diff - LAB USE ONLY 14:26:01 CDT 2 CPT-14305 Venipuncture Draw Fee 14:26:01 CDT CPT-70507 First Vx - Ix admin for Medicare patients 13:27:08 CDT CPT-46918 Fluzone High-Dose Intramuscular Suspension 11/26 13:27:08 CDT CPT-G0438 Initial Annual Wellness Exam 14:19:57 CD T CPT-G0009 Administration of Pneumococcal Vaccine 9 11:36:25 CDT CPT-17718 Prevnar 13 Intramuscular Suspension 1 1:36:25 CDT CPT-31202 Prevnar 13 Intramuscular Suspension 1 0:40:58 CDT CPT-J0897 Prolia 60 mg 10:37:16 CDT CPT-60867 Abx/Therapy Injection 10:37:16 CDT CPT-J0897 Prolia 60 mg 16:09:34 FIREARMS INSPECTOR CPT-J0897 Prolia 60 mg 11:10:35 FIREARMS INSPECTOR CPT-24518 Abx/Therapy Injection 11:10:35 FIREARMS INSPECTOR CPT-000 Give Appropriate Flu Vaccine 17:01:15 FIREARMS INSPECTOR 2 CPT-59462 Fluzone High Dose (65+) 15:03:08 FIREARMS INSPECTOR 02/15 CPT-58417 Immunization Single Admin 15:03:08 FIREARMS INSPECTOR 2014 CPT-OV Office Visit 15:58:06 CDT CPT-J0897 Prolia 60 mg 08:45:38 CDT CPT-11108 Abx/Therapy Injection 08:45:38 CDT CPT-J3420 Vitamin B12 1000mcg (Cyanocobalamin) 09:26:20 FIREARMS INSPECTOR CPT-18028 Abx/Therapy Injection 09:26:20 FIREARMS INSPECTOR CPT-J3420 Vitamin B12 1000mcg (Cyanocobalamin) 09:44:40 FIREARMS INSPECTOR CPT-29634 Abx/Therapy Injection 09:44:40 FIREARMS INSPECTOR CPT-J3420 Vitamin B12 1000mcg (Cyanocobalamin) 09:15:54 FIREARMS INSPECTOR CPT-71694 Abx/Therapy Injection 09:15:54 FIREARMS INSPECTOR CPT-J3420 Vitamin B12 1000mcg (Cyanocobalamin) 09:46:44 FIREARMS INSPECTOR CPT-29914 Abx/Therapy Injection 09:46:44 FIREARMS INSPECTOR CPT-J3420 Vitamin B12 1000mcg (Cyanocobalamin) 09:47:34 FIREARMS INSPECTOR CPT-71226 Abx/Therapy Injection 09:47:34 FIREARMS INSPECTOR CPT-J3420 Vitamin B12 1000mcg (Cyanocobalamin) 14:35:50 FIREARMS INSPECTOR CPT-J3420 Vitamin B12 1000mcg (Cyanocobalamin) 09:25:05 FIREARMS INSPECTOR CPT-16363 Abx/Therapy Injection 09:25:05 FIREARMS INSPECTOR CPT-G0008 Administration of Influenza Virus Vaccine 13:36:47 CDT CPT-70947 Fluzone High-Dose Intramuscular Suspension 11/15 13:36:47 CDT CPT-J0897 Prolia 60 mg 08:50:41 CDT CPT-29769 Abx/Therapy Injection 08:50:41 CDT CPT-02033 Bone Density 12:06:12 CDT CPT-39943 Bone Density 08:54:40 CDT CPT-OV Office Visit 15:37:02 CDT CPT-78688 Postop F/U Visit 15:47:49 CDT CPT-87694 Postop F/U Visit 15:21:02 CDT [facility] Transitional Care Mgmt-High 07:52:27 CDT 20 20/06/01 CPT-13625 Venipuncture Draw Fee 13:51:18 CDT CPT-46970 Venipuncture Draw Fee 10:14:55 FIREARMS INSPECTOR CPT-66941 Venipuncture Draw Fee 13:39:45 FIREARMS INSPECTOR CPT-OV Office Visit 15:11:22 FIREARMS INSPECTOR CPT-93761 Venipuncture Draw Fee 09:20:49 FIREARMS INSPECTOR CPT-07847 Venipuncture Draw Fee 16:52:15 FIREARMS INSPECTOR CPT-63502 Venipuncture Draw Fee 10:37:24 FIREARMS INSPECTOR CPT-80404 Venipuncture Draw Fee 08:21:21 FIREARMS INSPECTOR CPT-40518 Venipuncture Draw Fee 08:30:20 FIREARMS INSPECTOR CPT-58797 Venipuncture Draw Fee 14:53:21 FIREARMS INSPECTOR CPT-50247 Venipuncture Draw Fee 09:40:56 FIREARMS INSPECTOR CPT-83125 Venipuncture Draw Fee 10:30:47 FIREARMS INSPECTOR CPT-29611 Venipuncture Draw Fee 10:46:17 FIREARMS INSPECTOR CPT-49961 Venipuncture Draw Fee 11:12:45 FIREARMS INSPECTOR CPT-17122 Venipuncture Draw Fee 09:53:33 FIREARMS INSPECTOR CPT-50369 Venipuncture Draw Fee 11:53:51 FIREARMS INSPECTOR CPT-67207 Venipuncture Draw Fee 10:33:50 FIREARMS INSPECTOR CPT-72063 Venipuncture Draw Fee 10:05:01 FIREARMS INSPECTOR CPT-26078 Venipuncture Draw Fee 14:32:52 FIREARMS INSPECTOR CPT-17515 Venipuncture Draw Fee 09:46:13 FIREARMS INSPECTOR CPT-89490 Venipuncture Draw Fee 11:34:27 FIREARMS INSPECTOR CPT-92787 Venipuncture Draw Fee 13:17:16 FIREARMS INSPECTOR CPT-68442 Venipuncture Draw Fee 12:05:39 CDT CPT-00058 Venipuncture Draw Fee 12:49:12 CDT CPT-98376 Venipuncture Draw Fee 12:37:18 CDT CPT-57068 Venipuncture Draw Fee 10:57:11 CDT CPT-34580 Venipuncture Draw Fee 13:47:40 CDT CPT-23296 Venipuncture Draw Fee 10:02:17 CDT CPT-14476 TB Tubersol 17:32:32 CDT CPT-OV Office Visit 16:21:53 CDT CPT-OV Office Visit 15:49:22 CDT CPT-OV Office Visit 17:16:31 CDT CPT-OV Office Visit 10:43:31 CDT
--- OUTSIDE RECORDS SUMMARY | 2019-02-09 11:59 | XMS REPORT | Clinical Summary ---
Author Author Admin, Florecita Munoz Organization [facility] [employer] Address Unknown Phone Unavailable Allergies, Adverse Reactions, [...] Sebaceous cyst, scalp 706.2 Resolved Kylie Yokum APPRENTICESHIP TRAINING REPRESENTATIVE Sebaceous cyst Cervical lymphadenopathy, anterior, left 785.6 Resolv ed Kylie Yokum APPRENTICESHIP TRAINING REPRESENTATIVE Enlargement of lymph nodes Need for prophylactic vaccination and inoculation against in fluenza V04.81 Resolved Adam Yates MD Need for prophylactic vaccination and inoculation against influenza Preventive health care V70.0 Resolved Kylie Yoku m APPRENTICESHIP TRAINING REPRESENTATIVE Routine general medical examination at a health care facility Thyroid nodule, left 241.0 Active Kylie Yokum A PRN Nontoxic uninodular goiter Screening mammogram V76.12 Resolved Kylie Yokum A PRN Other screening mammogram Mandy 706.2 Resolved Kylie Yokum APPRENTICESHIP TRAINING REPRESENTATIVE Sebaceous cyst Colon cancer, ascending 153.6 Resolved Kylie Yok um APPRENTICESHIP TRAINING REPRESENTATIVE Malignant neoplasm of ascending colon Foot pain, left 729.5 Resolved Kylie Yokum APPRENTICESHIP TRAINING REPRESENTATIVE Pain in limb Splinter 919.6 Resolved Kylie Yokum APPRENTICESHIP TRAINING REPRESENTATIVE Superficial foreign body (splinter) of other, multiple, and unspecified sites, without major open wound and without mention of infection Rash 782.1 Resolved Kylie Yokum APPRENTICESHIP TRAINING REPRESENTATIVE Rash and other nonspecific skin eruption Cyst 706.2 Resolved Kylie Yokum APPRENTICESHIP TRAINING REPRESENTATIVE Sebaceous cyst Body Mass Index 23.0-23.9 Adult Refinement 2017 Kylie Yokum APPRENTICESHIP TRAINING REPRESENTATIVE Body Mass Index between 19-24, adult BMI less than 20 Active Adam goodwin MD Body Mass Index between 19-24, adult Unspecified fall, initial encounter E888.9 Inactive Kylie Holt APPRENTICESHIP TRAINING REPRESENTATIVE Unspecified fall Eye pain, left 379.91 Inactive [...] RIGHT LOWER QUADRANT ICD-789.03 Inactive Kina Joshua APPRENTICESHIP TRAINING REPRESENTATIVE ADENOCARCINOMA, COLON, 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 Dick Yates MD ABDOMINAL PAIN, GENERALIZED ICD-789.07 Inactive Hope Benavidez MD PhD FEVER UNSPECIFIED ICD-780.60 Inactive Hope cohn MD PhD UNSPECIFIED VENOUS INSUFFICIENCY ICD-459.81 Elda ctive Adam Yates MD ADENOCARCINOMA, 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 Inac tive Hope Benavidez MD PhD Hyperkalemia ICD-276.7 Inactive Hope Benavidez MD PhD GERD ICD-530.81 Inactive Kylie Yanet APPRENTICESHIP TRAINING REPRESENTATIVE 2015 Health maintenance exam ICD-V70.0 Bam Yates MD Anemia ICD-285.9 Inactive Kylie Yopari APPRENTICESHIP TRAINING REPRESENTATIVE 07/24 Hypomagnesemia ICD-275.2 Inactive Kylie Yogabbium APPRENTICESHIP TRAINING REPRESENTATIVE Weakness ICD-780.79 Inactive Hope Benavidez MD [...] cyst, scalp ICD-706.2 Inactive Tracy hi Yokum APPRENTICESHIP TRAINING REPRESENTATIVE Cervical lymphadenopathy, anterior, left ICD-785.6 Inactive Kylieshubham Holt APPRENTICESHIP TRAINING REPRESENTATIVE Need for prophylactic vaccination and inoculation against in fluenza ICD-V04.81 Inactive Adam Yates MD Preventive health care ICD-V70.0 Inactive Fiorella Holt APPRENTICESHIP TRAINING REPRESENTATIVE Screening mammogram ICD-V76.12 Inactive Kylie Holt APPRENTICESHIP TRAINING REPRESENTATIVE Mandy ICD-706.2 Inactive Kylie Holt APPRENTICESHIP TRAINING REPRESENTATIVE 07/20 Colon cancer, ascending ICD-153.6 Inactive Gabbi Holt APPRENTICESHIP TRAINING REPRESENTATIVE Foot pain, left ICD-729.5 Inactive Kylie Holt APPRENTICESHIP TRAINING REPRESENTATIVE Splinter ICD-919.6 Inactive Kylie Holt APPRENTICESHIP TRAINING REPRESENTATIVE 2017 Rash ICD-782.1 Inactive Kylie Holt APPRENTICESHIP TRAINING REPRESENTATIVE 07/25 Cyst ICD-706.2 Inactive Kylie Holt APPRENTICESHIP TRAINING REPRESENTATIVE 08/11 Unspecified fall, initial encounter ICD-E888.9 Inactive Kylie Holt APPRENTICESHIP TRAINING REPRESENTATIVE Eye pain, left ICD-379.91 Inactive Kylie Holt APPRENTICESHIP TRAINING REPRESENTATIVE Medication List Medication Instructions Start Date Stop Date Generic Name NDC Status Provider Patient Instruction VOLTAREN 1 % TRANSDERMAL GEL apply 2 grams q 6-8 hour to left arm as needed for pain DICLOFENAC SODIUM 61346668924 Active Kylie Holt APR N Active IMODIUM A-D 2 MG ORAL TABLET 1 tablet twice a day LOPERAMIDE HCL 99666621125 Active Kylie Holt APRN Active COQ10 100 MG ORAL CAPSULE 1 daily COENZYME Q10 154151 75838 Active LETY Nation Active VITAMIN D3 2000 UNIT ORAL CAPSULE Melaleuca-One daily CHOLECALCIFEROL 56019718673 Active Kylie Holt APRN Active PROBIOTIC DAILY ORAL CAPSULE Take one daily PROBIO TIC PRODUCT 98231893301 Active Kylie Holt APRN Active IRON 325 (65 Fe) MG ORAL TABLET 1 every other day FERROUS SULFATE 93132755771 No Longer Active Kylie Yokum APPRENTICESHIP TRAINING REPRESENTATIVE Active FLORANEX ORAL PACKET 1 pack three times daily, for bowel health LACTOBACILLUS 35441849107 No Longer Active Kylie Yokum APPRENTICESHIP TRAINING REPRESENTATIVE Active LOMOTIL 2.5-0.025 MG ORAL TABLET 1 tab by mouth prn 20 23/10/23 DIPHENOXYLATE-ATROPINE 20682906753 No Longer Active Kylie Yokum APPRENTICESHIP TRAINING REPRESENTATIVE Active MAGNESIUM GLUCONATE 250 MG ORAL TABLET 1 tab tid 23/10/23 MAGNESIUM GLUCONATE 33841003053 No Longer Active Kylie Yokum APPRENTICESHIP TRAINING REPRESENTATIVE Active CYANOCOBALAMIN 1000 MCG/ML INJECTION SOLUTION 1 injection ev ruben 2 weeks CYANOCOBALAMIN 84201401976 No Longer Active Kylie Yok um APPRENTICESHIP TRAINING REPRESENTATIVE Active ATENOLOL 25 MG ORAL TABLET 1/2 pill by mouth daily, fo r headaches, blood pressure ATENOLOL 04147373270 Active Kylie Yokum APPRENTICESHIP TRAINING REPRESENTATIVE Active PROPRANOLOL HCL 80 MG ORAL TABLET 1 tab tue. and thur. PROPRANOLOL HCL 15929287043 No Longer Active Hope Benavidez MD PhD A ctive VITAMIN D3 4000 IU 1 tab 3 times daily VITAMIN D3 4000 IU No Longer Active Hope Benavidez MD PhD Active BACTRIM DS 800-160 MG ORAL TABLET 1 pill by mouth twice claudio y, for UTI SULFAMETHOXAZOLE-TRIMETHOPRIM 63418824936 No Longer Active Hope Benavidez MD PhD Active PROLIA 60 MG/ML SUBCUTANEOUS SOLUTION 1 shot every 6 months for osteoprosis DENOSUMAB 85825833586 Active Hope Benavidez MD PhD Active CALCIUM + D + K 750-500-40 MG-UNT-MCG ORAL TABLET 1 tab by m outh twice daily CALCIUM-VITAMIN D-VITAMIN K 46191123450 Active Hope valdez MD PhD Active DAILY VALUE MULTIVITAMIN ORAL TABLET 1 tab by mouth twice daily 201 05/16/14 MULTIPLE VITAMIN 55223569028 Active Hope Benavidez MD PhD Acti ve FISH OIL 306 MG CAPS 1 tab by mouth three times daily OMEGA-3 FATTY ACIDS 24052298515 Active Hope Benavidez MD PhD Active LUTEIN 10 MG ORAL TABLET 1 tab daily LUTEIN 53640870 408 Active Hope Benavidez MD PhD Active TRIAMTERENE-HCTZ 37.5-25 MG ORAL TABLET 1 tab by mouth daily 10/22 TRIAMTERENE-HCTZ 08990409410 Active Kylie Holt APPRENTICESHIP TRAINING REPRESENTATIVE Active CYCLOBENZAPRINE HCL 10 MG ORAL TABLET 1 tablet by mout h three times daily as needed for headaches CYCLOBENZAPRINE HCL 83651292370 No Longer Active Adam Yates MD Active OMEPRAZOLE 20 MG ORAL CAPSULE DELAYED RELEASE 1 tablet by [facility] daily for GERD OMEPRAZOLE 56799300454 No Longer Active Adam Yates MD Active ZOFRAN 8 MG ORAL TABLET 1 tab by mouth every 12 hours prn 4 ONDANSETRON HCL 91495888807 No Longer Active Adam Yates MD Active PHENADOZ 25 MG RECTAL SUPPOSITORY 1 every 4 hrs. PRN 2 PROMETHAZINE HCL 69150347657 No Longer Active Adam Yates MD A ctive POTASSIUM CHLORIDE 20 MEQ ORAL PACKET by mouth twice a day prn 2 POTASSIUM CHLORIDE 94744288216 No Longer Active Adam Carpenter MD Active PROMETHAZINE HCL 25 MG ORAL TABLET 1 Q. 4 hr. PRN PROMETHAZINE HCL 62006741373 No Longer Active Adam Yates MD Active INNOPRAN XL 120 MG ORAL CAPSULE EXTENDED RELEASE 24 HO UR Take one by mouth daily PROPRANOLOL HCL SR BEADS 91359106945 No Longer Active Adam Yates MD Active FLAGYL 500 MG ORAL TABLET 1 pill by mouth three times daily, for diarrhea METRONIDAZOLE 75730388309 No Longer Active Hope landers MD PhD Active DYAZIDE 37.5-25 MG ORAL CAPSULE 1 qd TRIA MTERENE-HCTZ 38730001833 No Longer Active Hope Benavidez MD PhD Active PROZAC 20 MG ORAL CAPSULE 1 q d FLUOXETINE HCL 37971210023 No Longer Active Hope Benavidez MD PhD Active SIMVASTATIN 40 MG ORAL TABLET 1 qd SIMVAS TATIN 58589555371 No Longer Active Adam Yates MD Active MELOXICAM 15 MG ORAL TABLET 1 qd MELOXICAM 50556801452 No Longer Active Adam Yates MD Active EXCEDRIN EXTRA STRENGTH 250-250-65 MG ORAL TABLET 1-2 q6h [place] N headache [id number] 79663333563 Active Hope Benavidez MD PhD Active FLAGYL 500 MG ORAL TABLET 1 qid METRONIDAZOL E 47725475493 No Longer Active Adam Yates MD Active LEVAQUIN 750 MG ORAL TABLET 1 qd LEVOFLOXAC IN 70982457163 No Longer Active Adam Yates MD Active ADULT ASPIRIN LOW STRENGTH 81 MG ORAL TABLET DISINTEGRATING 1 qd ASPIRIN 67707670686 Active Hope Benavidez MD PhD Active LEVAQUIN 750 MG ORAL TABLET 1 qd LEVAQUIN 750 MG ORAL TABLET 707800 LEVOFLOXACIN Inactive FLAGYL 500 MG ORAL TABLET 1 qid FLAGYL 500 MG ORAL TABLET 597134 METRONIDAZOLE Inactive MELOXICAM 15 MG ORAL TABLET 1 qd MELOXICAM 15 MG ORAL TABLET 097402 MELOXICAM Inactive SIMVASTATIN 40 MG ORAL TABLET 1 qd SIMVASTATIN 40 MG ORAL TABLET 677456 SIMVASTATIN Inactive PROZAC 20 MG ORAL CAPSULE 1 q d PROZAC 20 MG ORAL CAPSULE 169706 FLUOXETINE HCL Inactive DYAZIDE 37.5-25 MG ORAL CAPSULE 1 qd 5 DYAZIDE 37.5-25 MG ORAL CAPSULE 440896 TRIAMTERENE-HCTZ Inactive INNOPRAN XL 120 MG ORAL CAPSULE EXTENDED RELEASE 24 HO UR Take one by mouth daily INNOPRAN XL 120 MG ORAL CAPSULE EXTENDED RELEASE 24 HOUR PROPRANOLOL HCL SR BEADS Inactive PROMETHAZINE HCL 25 MG ORAL TABLET 1 Q. 4 hr. PRN 2013 PROMETHAZINE HCL 25 MG ORAL TABLET 663392 PROMETHAZINE HCL Inactive POTASSIUM CHLORIDE 20 MEQ ORAL PACKET by mouth twice a day prn 2 POTASSIUM CHLORIDE 20 MEQ ORAL PACKET 9530885 POTASSIUM CHLORIDE Inactive PHENADOZ 25 MG RECTAL SUPPOSITORY 1 every 4 hrs. PRN 2 PHENADOZ 25 MG RECTAL SUPPOSITORY 548954 PROMETHAZINE HCL Inactive ZOFRAN 8 MG ORAL TABLET 1 tab by mouth every 12 hours prn 4 ZOFRAN 8 MG ORAL TABLET 717603 ONDANSETRON HCL Inactive OMEPRAZOLE 20 MG ORAL CAPSULE DELAYED RELEASE 1 tablet by mo ut daily for GERD OMEPRAZOLE 20 MG ORAL CAPSULE DELAYED RELEASE 19 8051 OMEPRAZOLE Inactive CYCLOBENZAPRINE HCL 10 MG ORAL TABLET 1 tablet by mout h three times daily as needed for headaches CYCLOBENZAPRINE HCL 10 MG ORAL TABLET 201010 CYCLOBENZAPRINE HCL Inactive VITAMIN D3 4000 IU 1 tab 3 times daily VITAMIN D3 4000 IU Inactive PROPRANOLOL HCL 80 MG ORAL TABLET 1 tab tue. and thur. PROPRANOLOL HCL 80 MG ORAL TABLET 125387 PROPRANOLOL HCL Inacti ve CYANOCOBALAMIN 1000 MCG/ML INJECTION SOLUTION 1 injection ev ruben 2 weeks CYANOCOBALAMIN 1000 MCG/ML INJECTION SOLUTION 30 9594 CYANOCOBALAMIN Inactive MAGNESIUM GLUCONATE 250 MG ORAL TABLET 1 tab tid 23/10/23 MAGNESIUM GLUCONATE 250 MG ORAL TABLET 367546 MAGNESIUM GLUCONATE Inactive LOMOTIL 2.5-0.025 MG ORAL TABLET 1 tab by mouth prn 23/10/23 LOMOTIL 2.5-0.025 MG ORAL TABLET 6707234 DIPHENOXYLATE-ATROPINE Inac tive FLORANEX ORAL PACKET 1 pack three times daily, for bowel health FLORANEX ORAL PACKET 40588596586 LACTOBACILLUS Inactive IRON 325 (65 Fe) MG ORAL TABLET 1 every other day 2015 IRON 325 (65 Fe) MG ORAL TABLET 328558 FERROUS SULFATE Inactive FLAGYL 500 MG ORAL TABLET 1 pill by mouth three times daily, for diarrhea FLAGYL 500 MG ORAL TABLET 983889 METRONIDAZOLE I nactive BACTRIM DS 800-160 MG ORAL TABLET 1 pill by mouth twice claudio y, for UTI BACTRIM DS 800-160 MG ORAL TABLET 444068 SULFAMETHOXAZOLE-TRIMETHOPRIM Inactive Advance Directives Directive Description Start [...] ... - Chemistry sodium, serum 141 mmol/L 778-371 4317/01/10 potassium, serum 3.7 mmol/L 3.5-5.2 chloride, serum 101 mmol/L 98-107 carbon dioxide, venous blood 31.0 mmol/L 21.0-32 .0 blood glucose 96 mg/dL 65-95 calcium, serum 9.5 mg/dL 8.5-10.1 urea nitrogen, blood 21 mg/dL 7-18 creatinine, serum 1.40 mg/dL 0.60-1.30 Estimated Glomerular Filtration Rate (calc) 39 (?) mL/min/1.73m2 = OR > 60 mL/min cholesterol, serum 211 mg/dL 769-761 7171/01/10 triglyceride, serum, fasting 77 mg/dL 30-200 HDL [...] - Chem istry sodium, serum 142 mmol/L 924-425 4130/04/19 carbon dioxide, venous blood 30.2 mmol/L 21.0-32 [...] Report: Renal Panel, Magnesium - Chelle radha carbon dioxide, venous blood 31.5 mmol/L 21.0-32 .0 chloride, serum 101 mmol/L 98-107 potassium, serum 3.4 mmol/L 3.5-5.2 sodium, serum 142 mmol/L 890-131 8655/11/02 blood glucose 81 mg/dL 65-95 creatinine, serum 1.35 mg/dL 0.60-1.30 urea nitrogen, [...] mg/dL Encounters Code Encounter Date Provider Facility CPT-95944 Level 3 New Patient 12:08:54 RETAIL SHIFT MANAGER Adam Yates MD [facility] CPT-28848 52704-Dcc Vst-Est Level IV 19:48:30 RETAIL SHIFT MANAGER Tracy Holt [facility] CPT-26487 [id number] Vst-Est Level III 14:29:19 CDT Fiorella Holt [facility] CPT-81990 Level 2 Est. Patient 14:58:26 CDT Kylie Lund [facility] CPT-12169 Level 3 Est. Patient 08:15:24 RETAIL SHIFT MANAGER Kylie Lund [facility] CPT-08763 Level 2 Est. Patient 14:27:16 RETAIL SHIFT MANAGER Kylie Lund [facility] CPT-90857 Level 3 Est. Patient 17:54:48 CDT Kylie Lund [facility] CPT-21761 Level 3 Est. Patient 16:26:30 CDT Kina blackmon [facility] CPT-11271 Level 3 New Patient 16:22:01 RETAIL SHIFT MANAGER Adam Yates MD [facility] CPT-78202 Level 4 Est. Patient 17:00:48 CDT Kylie Lund [facility] CPT-94113 Level 3 Est. Patient 13:15:[address] [facility] CPT-98089 Level 3 Est. Patient 09:10:[address] [facility] CPT-64342 Level 4 Est. Patient 12:08:30 RETAIL SHIFT MANAGER Hope cohn MD [facility] CPT-44060 Level 4 Est. Patient 19:08:42 RETAIL SHIFT MANAGER Hope cohn MD PhD [facility] CPT-12579 Level 4 Est. Patient 20:04:51 CDT [facility] cohn [facility] CPT-22491 Level 3 New Patient 01:46:11 RETAIL SHIFT MANAGER Hope landers MD PhD [facility] Procedures Code Procedure Name Date Entry Date Standard Desc ription CPT-55180 Sono Soft Tissue Head and Neck - XRAY US E ONLY 11:56:06 RETAIL SHIFT MANAGER CPT-10623 Abx/Therapy Injection 09:40:08 RETAIL SHIFT MANAGER CPT-J0897 Prolia 60 mg 09:40:08 RETAIL SHIFT MANAGER CPT-94153 First Vx - Ix admin for Medicare patients 02/08 10:02:45 CDT CPT-73181 Fluzone Quadrivalent Intramuscular Suspe nsion 0.5 ML 10:02:45 CDT CPT-30912 Magnesium - LAB USE ONLY 09:41:00 CDT 12/09 CPT-50044 Renal Panel - LAB USE ONLY 09:41:00 CDT 201 09/17/01 CPT-43361 Venipuncture Draw Fee 09:41:00 CDT CPT-62531 Calcium - LAB USE ONLY 17:25:11 CDT CPT-J0897 Prolia 60 mg 15:10:59 CDT CPT-51003 Abx/Therapy Injection 15:10:59 CDT CPT-G0439 Subsequent Annual Wellness Exam 14:29:19 CDT CPT-78837 Venipuncture Draw Fee 10:59:04 CDT CPT-54532 CMP - LAB USE ONLY 10:59:04 CDT CPT-03761 CBC with Diff - LAB USE ONLY 10:59:03 CDT 2 CPT-J0897 Prolia 60 mg 15:46:54 RETAIL SHIFT MANAGER CPT-89234 Abx/Therapy Injection 15:46:54 RETAIL SHIFT MANAGER CPT-77874 Microalbumin - LAB USE ONLY 09:41:32 RETAIL SHIFT MANAGER 20 23/01/15 CPT-93727 Free T4 - LAB USE ONLY 09:41:32 RETAIL SHIFT MANAGER CPT-23797 TSH - LAB USE ONLY 09:41:32 RETAIL SHIFT MANAGER CPT-91235 BMP - LAB USE ONLY 09:41:32 RETAIL SHIFT MANAGER CPT-77937 Venipuncture Draw Fee 09:41:32 RETAIL SHIFT MANAGER CPT-51589 First Vx - Ix admin for Medicare patients 11:19:30 CDT CPT-54743 Fluzone High-Dose Intramuscular Suspension 12/07 11:19:30 CDT CPT-J0897 Prolia 60 mg 14:55:42 CDT CPT-55080 Abx/Therapy Injection 14:55:42 CDT CPT-15424 Bone Density - XRAY USE ONLY 10:27:12 CDT 2 CPT-G0439 [facility] Annual Wellness Exam 17:54:53 CDT CPT-58651 Foot, left, comp min 3V - XRAY USE ONLY 12:22:49 CDT CPT-G0009 Administration of Pneumococcal Vaccine 3 12:18:00 CDT CPT-37632 Pneumovax 23 Injection Injectable 25 MCG /0.5ML 12:18:00 CDT CPT-J0897 Prolia 60 mg 14:14:16 RETAIL SHIFT MANAGER CPT-29226 Abx/Therapy Injection 14:14:15 RETAIL SHIFT MANAGER CPT-37968 Lipid - LAB USE ONLY 10:01:52 RETAIL SHIFT MANAGER 2 CPT-80026 Calcium - LAB USE ONLY 10:01:51 RETAIL SHIFT MANAGER CPT-61504 Venipuncture Draw Fee 10:01:51 RETAIL SHIFT MANAGER CPT-LR Lesion Removal 16:22:01 RETAIL SHIFT MANAGER CPT-21971 TSH - LAB USE ONLY 14:26:02 CDT CPT-34657 CMP - LAB USE ONLY 14:26:01 CDT CPT-63917 CBC with Diff - LAB USE ONLY 14:26:01 CDT 2 CPT-35032 Venipuncture Draw Fee 14:26:01 CDT CPT-77771 First Vx - Ix admin for Medicare patients 13:27:08 CDT CPT-01082 Fluzone High-Dose Intramuscular Suspension 11/26 13:27:08 CDT CPT-G0438 Initial Annual Wellness Exam 14:19:57 CD T CPT-G0009 Administration of Pneumococcal Vaccine 9 11:36:25 CDT CPT-14191 Prevnar 13 Intramuscular Suspension 1 1:36:25 CDT CPT-30562 Prevnar 13 Intramuscular Suspension 1 0:40:58 CDT CPT-J0897 Prolia 60 mg 10:37:16 CDT CPT-01318 Abx/Therapy Injection 10:37:16 CDT CPT-J0897 Prolia 60 mg 16:09:34 RETAIL SHIFT MANAGER CPT-J0897 Prolia 60 mg 11:10:35 RETAIL SHIFT MANAGER CPT-53984 Abx/Therapy Injection 11:10:35 RETAIL SHIFT MANAGER CPT-000 Give Appropriate Flu Vaccine 17:01:15 RETAIL SHIFT MANAGER 2 CPT-47055 Fluzone High Dose (65+) 15:03:08 RETAIL SHIFT MANAGER 02/15 CPT-79486 Immunization Single Admin 15:03:08 RETAIL SHIFT MANAGER 2014 CPT-OV Office Visit 15:58:06 CDT CPT-J0897 Prolia 60 mg 08:45:38 CDT CPT-35126 Abx/Therapy Injection 08:45:38 CDT CPT-J3420 Vitamin B12 1000mcg (Cyanocobalamin) 09:26:20 RETAIL SHIFT MANAGER CPT-12838 Abx/Therapy Injection 09:26:20 RETAIL SHIFT MANAGER CPT-J3420 Vitamin B12 1000mcg (Cyanocobalamin) 09:44:40 RETAIL SHIFT MANAGER CPT-91205 Abx/Therapy Injection 09:44:40 RETAIL SHIFT MANAGER CPT-J3420 Vitamin B12 1000mcg (Cyanocobalamin) 09:15:54 RETAIL SHIFT MANAGER CPT-19867 Abx/Therapy Injection 09:15:54 RETAIL SHIFT MANAGER CPT-J3420 Vitamin B12 1000mcg (Cyanocobalamin) 09:46:44 RETAIL SHIFT MANAGER CPT-46516 Abx/Therapy Injection 09:46:44 RETAIL SHIFT MANAGER CPT-J3420 Vitamin B12 1000mcg (Cyanocobalamin) 09:47:34 RETAIL SHIFT MANAGER CPT-09771 Abx/Therapy Injection 09:47:34 RETAIL SHIFT MANAGER CPT-J3420 Vitamin B12 1000mcg (Cyanocobalamin) 14:35:50 RETAIL SHIFT MANAGER CPT-J3420 Vitamin B12 1000mcg (Cyanocobalamin) 09:25:05 RETAIL SHIFT MANAGER CPT-03058 Abx/Therapy Injection 09:25:05 RETAIL SHIFT MANAGER CPT-G0008 Administration of Influenza Virus Vaccine 13:36:47 CDT CPT-17487 Fluzone High-Dose Intramuscular Suspension 11/15 13:36:47 CDT CPT-J0897 Prolia 60 mg 08:50:41 CDT CPT-86202 Abx/Therapy Injection 08:50:41 CDT CPT-67132 Bone Density 12:06:12 CDT CPT-58281 Bone Density 08:54:40 CDT CPT-OV Office Visit 15:37:02 CDT CPT-07400 Postop F/U Visit 15:47:49 CDT CPT-39354 Postop F/U Visit 15:21:02 CDT CPT-[facility] Transitional Care Mgmt-High 07:52:27 CDT 20 20/06/01 CPT-35131 Venipuncture Draw Fee 13:51:18 CDT CPT-45718 Venipuncture Draw Fee 10:14:55 RETAIL SHIFT MANAGER CPT-01965 Venipuncture Draw Fee 13:39:45 RETAIL SHIFT MANAGER CPT-OV Office Visit 15:11:22 RETAIL SHIFT MANAGER CPT-49450 Venipuncture Draw Fee 09:20:49 RETAIL SHIFT MANAGER CPT-82570 Venipuncture Draw Fee 16:52:15 RETAIL SHIFT MANAGER CPT-81576 Venipuncture Draw Fee 10:37:24 RETAIL SHIFT MANAGER CPT-32943 Venipuncture Draw Fee 08:21:21 RETAIL SHIFT MANAGER CPT-03517 Venipuncture Draw Fee 08:30:20 RETAIL SHIFT MANAGER CPT-65735 Venipuncture Draw Fee 14:53:21 RETAIL SHIFT MANAGER CPT-34621 Venipuncture Draw Fee 09:40:56 RETAIL SHIFT MANAGER CPT-11450 Venipuncture Draw Fee 10:30:47 RETAIL SHIFT MANAGER CPT-20141 Venipuncture Draw Fee 10:46:17 RETAIL SHIFT MANAGER CPT-54342 Venipuncture Draw Fee 11:12:45 RETAIL SHIFT MANAGER CPT-92674 Venipuncture Draw Fee 09:53:33 RETAIL SHIFT MANAGER CPT-56857 Venipuncture Draw Fee 11:53:51 RETAIL SHIFT MANAGER CPT-13740 Venipuncture Draw Fee 10:33:50 RETAIL SHIFT MANAGER CPT-92845 Venipuncture Draw Fee 10:05:01 RETAIL SHIFT MANAGER CPT-55926 Venipuncture Draw Fee 14:32:52 RETAIL SHIFT MANAGER CPT-95578 Venipuncture Draw Fee 09:46:13 RETAIL SHIFT MANAGER CPT-17211 Venipuncture Draw Fee 11:34:27 RETAIL SHIFT MANAGER CPT-52007 Venipuncture Draw Fee 13:17:16 RETAIL SHIFT MANAGER CPT-20854 Venipuncture Draw Fee 12:05:39 CDT CPT-42406 Venipuncture Draw Fee 12:49:12 CDT CPT-71506 Venipuncture Draw Fee 12:37:18 CDT CPT-25288 Venipuncture Draw Fee 10:57:11 CDT CPT-06387 Venipuncture Draw Fee 13:47:40 CDT CPT-90932 Venipuncture Draw Fee 10:02:17 CDT CPT-79913 TB Tubersol 17:32:32 CDT CPT-OV Office Visit 16:21:53 CDT CPT-OV Office Visit 15:49:22 CDT CPT-OV Office Visit 17:16:31 CDT CPT-OV Office Visit 10:43:31 CDT
--- OUTSIDE RECORDS SUMMARY | 2019-02-09 12:00 | XMS REPORT | Clinical Summary ---
Author Author Admin, Florecita Munoz Organization [facility] Address Unknown Phone Unavailable Allergies, Adverse Reactions, [...] Sebaceous cyst, scalp 706.2 Resolved Kylie Yokum PHYSICAL THERAPY SUPERVISOR Sebaceous cyst Cervical lymphadenopathy, anterior, left 785.6 Resolv ed Kylie Yokum PHYSICAL THERAPY SUPERVISOR Enlargement of lymph nodes Need for prophylactic vaccination and inoculation against in fluenza V04.81 Resolved Adam Yates MD Need for prophylactic vaccination and inoculation against influenza Preventive health care V70.0 Resolved Kylie Yoku m PHYSICAL THERAPY SUPERVISOR Routine general medical examination at a health care facility Thyroid nodule, left 241.0 Active Kylie Yokum A PRN Nontoxic uninodular goiter Screening mammogram V76.12 Resolved Kylie Yokum A PRN Other screening mammogram Mandy 706.2 Resolved Kylie Yokum PHYSICAL THERAPY SUPERVISOR Sebaceous cyst Colon cancer, ascending 153.6 Resolved Kylie Yok um PHYSICAL THERAPY SUPERVISOR Malignant neoplasm of ascending colon Foot pain, left 729.5 Resolved Kylie Yokum PHYSICAL THERAPY SUPERVISOR Pain in limb Splinter 919.6 Resolved Kylie Yokum PHYSICAL THERAPY SUPERVISOR Superficial foreign body (splinter) of other, multiple, and unspecified sites, without major open wound and without mention of infection Rash 782.1 Resolved Kylie Yokum PHYSICAL THERAPY SUPERVISOR Rash and other nonspecific skin eruption Cyst 706.2 Resolved Kylie Yokum PHYSICAL THERAPY SUPERVISOR Sebaceous cyst Body Mass Index 23.0-23.9 Adult Refinement 2017 Kylie Yokum PHYSICAL THERAPY SUPERVISOR Body Mass Index between 19-24, adult BMI less than 20 Active Adam goodwin MD Body Mass Index between 19-24, adult Unspecified fall, initial encounter E888.9 Inactive Kylie Holt PHYSICAL THERAPY SUPERVISOR Unspecified fall Eye pain, left 379.91 Inactive [...] RIGHT LOWER QUADRANT ICD-789.03 Inactive Kina Joshua PHYSICAL THERAPY SUPERVISOR ADENOCARCINOMA, COLON, 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 Dick Yates MD ABDOMINAL PAIN, GENERALIZED ICD-789.07 Inactive Hope Benavidez MD PhD FEVER UNSPECIFIED ICD-780.60 Inactive Hope cohn MD PhD UNSPECIFIED VENOUS INSUFFICIENCY ICD-459.81 Elda ctive Adam Yates MD ADENOCARCINOMA, 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 Inac tive Hope Benavidez MD PhD Hyperkalemia ICD-276.7 Inactive Hope Benavidez MD PhD Health maintenance exam ICD-V70.0 Bam Yates MD Anemia ICD-285.9 Inactive Kylie Yokum PHYSICAL THERAPY SUPERVISOR 07/24 GERD ICD-530.81 Inactive Kylie Yokum PHYSICAL THERAPY SUPERVISOR 2015 Weakness ICD-780.79 Inactive Hope Benavidez MD P hD Hypomagnesemia ICD-275.2 Inactive Kylie Yokum PHYSICAL THERAPY SUPERVISOR Asymptomatic postmenopausal status (age-related) (natural) I CD-V49.81 Inactive Hope Benavidez MD PhD Diarrhea, functional ICD-564.5 Inactive Selena Yates MD Dysuria ICD-788.1 Inactive Hope Benavidez MD PhD 201 05/19/01 Adenocarcinoma, ascending colon ICD-153.6 Inac tive Adam Yates MD Sebaceous cyst, scalp ICD-706.2 Inactive Tracy hi Yokum PHYSICAL THERAPY SUPERVISOR Cervical lymphadenopathy, anterior, left ICD-785.6 Inactive Kylie Yokum PHYSICAL THERAPY SUPERVISOR Need for prophylactic vaccination and inoculation against in fluenza ICD-V04.81 Bam Yates MD Preventive health care ICD-V70.0 Inactive Ka thi Yokum PHYSICAL THERAPY SUPERVISOR Screening mammogram ICD-V76.12 Inactive Kylie Yokum PHYSICAL THERAPY SUPERVISOR Mandy ICD-706.2 Inactive Kylie Yokum PHYSICAL THERAPY SUPERVISOR 07/20 Colon cancer, ascending ICD-153.6 Inactive K umang Holt PHYSICAL THERAPY SUPERVISOR Foot pain, left ICD-729.5 Inactive Kylie Holt PHYSICAL THERAPY SUPERVISOR Splinter ICD-919.6 Inactive Kylie Holt PHYSICAL THERAPY SUPERVISOR 2017 Rash ICD-782.1 Inactive Kylie Lundum PHYSICAL THERAPY SUPERVISOR 07/25 Cyst ICD-706.2 Inactive Kylie Holt PHYSICAL THERAPY SUPERVISOR 08/11 Aftercare following surgery of the teeth,oral cavity a nd digestive system, NEC ICD-V58.75 Inactive Adam Yates MD Colon cancer ICD-153.9 Inactive Adam luna MD Unspecified fall, initial encounter ICD-E888.9 Inactive Kylie Holt PHYSICAL THERAPY SUPERVISOR Eye pain, left ICD-379.91 Inactive Kylie Holt PHYSICAL THERAPY SUPERVISOR Medication List Medication Instructions Start Date Stop Date Generic Name NDC Status Provider Patient Instruction VOLTAREN 1 % TRANSDERMAL GEL apply 2 grams q 6-8 hour to left arm as needed for pain DICLOFENAC SODIUM 09540928538 Active Kylie Holt HEATHER N Active IMODIUM A-D 2 MG ORAL TABLET 1 tablet twice a day LOPERAMIDE HCL 71675977297 Active Kylie Holt PHYSICAL THERAPY SUPERVISOR Active COQ10 100 MG ORAL CAPSULE 1 daily COENZYME Q10 801644 57958 Active LETY Nation Active VITAMIN D3 2000 UNIT ORAL CAPSULE Melaleuca-One daily CHOLECALCIFEROL 72455202370 Active Kylie Holt APRN Active PROBIOTIC DAILY ORAL CAPSULE Take one daily PROBIO TIC PRODUCT 93833473030 Active Kylie Holt APRN Active IRON 325 (65 Fe) MG ORAL TABLET 1 every other day FERROUS SULFATE 69027776565 No Longer Active Kylie Yokum PHYSICAL THERAPY SUPERVISOR Active FLORANEX ORAL PACKET 1 pack three times daily, for bowel health LACTOBACILLUS 54331911496 No Longer Active Kylie Yokum PHYSICAL THERAPY SUPERVISOR Active LOMOTIL 2.5-0.025 MG ORAL TABLET 1 tab by mouth prn 20 23/10/23 DIPHENOXYLATE-ATROPINE 68523449783 No Longer Active Kylie Yokum PHYSICAL THERAPY SUPERVISOR Active MAGNESIUM GLUCONATE 250 MG ORAL TABLET 1 tab tid 23/10/23 MAGNESIUM GLUCONATE 80486803179 No Longer Active Kylie Yokum PHYSICAL THERAPY SUPERVISOR Active CYANOCOBALAMIN 1000 MCG/ML INJECTION SOLUTION 1 injection ev ruben 2 weeks CYANOCOBALAMIN 09444686604 No Longer Active Kylie Yok um PHYSICAL THERAPY SUPERVISOR Active ATENOLOL 25 MG ORAL TABLET 1/2 pill by mouth daily, fo r headaches, blood pressure ATENOLOL 38428723557 Active Kylie Yokum PHYSICAL THERAPY SUPERVISOR Active PROPRANOLOL HCL 80 MG ORAL TABLET 1 tab tue. and thur. PROPRANOLOL HCL 45490200489 No Longer Active Hope Benavidez MD PhD A ctive VITAMIN D3 4000 IU 1 tab 3 times daily VITAMIN D3 4000 IU No Longer Active Hope Benavidez MD PhD Active BACTRIM DS 800-160 MG ORAL TABLET 1 pill by mouth twice claudio y, for UTI SULFAMETHOXAZOLE-TRIMETHOPRIM 11557734327 No Longer Active Hope Benavidez MD PhD Active PROLIA 60 MG/ML SUBCUTANEOUS SOLUTION 1 shot every 6 months for osteoprosis DENOSUMAB 00288796030 Active Hope Benavidez MD PhD Active CALCIUM + D + K 750-500-40 MG-UNT-MCG ORAL TABLET 1 tab by m outh twice daily CALCIUM-VITAMIN D-VITAMIN K 65396892602 Active Hope valdez MD PhD Active DAILY VALUE MULTIVITAMIN ORAL TABLET 1 tab by mouth twice daily 201 05/16/14 MULTIPLE VITAMIN 77647534253 Active Hope Benavidez MD PhD Acti ve FISH OIL 306 MG CAPS 1 tab by mouth three times daily OMEGA-3 FATTY ACIDS 25408077029 Active Hope Benavidez MD PhD Active LUTEIN 10 MG ORAL TABLET 1 tab daily LUTEIN 35189799 408 Active Hope Benavidez MD PhD Active TRIAMTERENE-HCTZ 37.5-25 MG ORAL TABLET 1 tab by mouth daily 10/22 TRIAMTERENE-HCTZ 72843394515 Active Kylie Holt PHYSICAL THERAPY SUPERVISOR Active CYCLOBENZAPRINE HCL 10 MG ORAL TABLET 1 tablet by mout h three times daily as needed for headaches CYCLOBENZAPRINE HCL 56223332473 No Longer Active Adam Yates MD Active OMEPRAZOLE 20 MG ORAL CAPSULE DELAYED RELEASE 1 tablet by mo [facility] daily for GERD OMEPRAZOLE 80118305421 No Longer Active Adam Yates MD Active ZOFRAN 8 MG ORAL TABLET 1 tab by mouth every 12 hours prn 4 ONDANSETRON HCL 77302194019 No Longer Active Adam Yates MD Active PHENADOZ 25 MG RECTAL SUPPOSITORY 1 every 4 hrs. PRN 2 PROMETHAZINE HCL 54896774335 No Longer Active Adam Yates MD A ctive POTASSIUM CHLORIDE 20 MEQ ORAL PACKET by mouth twice a day prn 2 POTASSIUM CHLORIDE 96972965353 No Longer Active Adam Carpenter MD Active PROMETHAZINE HCL 25 MG ORAL TABLET 1 Q. 4 hr. PRN PROMETHAZINE HCL 89856092335 No Longer Active Adam Yates MD Active INNOPRAN XL 120 MG ORAL CAPSULE EXTENDED RELEASE 24 HO UR Take one by mouth daily PROPRANOLOL HCL SR BEADS 44721533802 No Longer Active Adam Yates MD Active FLAGYL 500 MG ORAL TABLET 1 pill by mouth three times daily, for diarrhea METRONIDAZOLE 35337289493 No Longer Active Hope landers MD PhD Active DYAZIDE 37.5-25 MG ORAL CAPSULE 1 qd TRIA MTERENE-HCTZ 82230395795 No Longer Active Hope Benavidez MD PhD Active PROZAC 20 MG ORAL CAPSULE 1 q d FLUOXETINE HCL 38001078598 No Longer Active Hope Benavidez MD PhD Active SIMVASTATIN 40 MG ORAL TABLET 1 qd SIMVAS TATIN 00354679059 No Longer Active Adam Yates MD Active MELOXICAM 15 MG ORAL TABLET 1 qd MELOXICAM 73953570646 No Longer Active Adam Yates MD Active EXCEDRIN EXTRA STRENGTH 250-250-65 MG ORAL TABLET 1-2 q6h LA N headache [id number] 69521252153 Active Hope Benavidez MD PhD Active FLAGYL 500 MG ORAL TABLET 1 qid METRONIDAZOL E 04304655951 No Longer Active Adam Yates MD Active LEVAQUIN 750 MG ORAL TABLET 1 qd LEVOFLOXAC IN 07931868999 No Longer Active Adam Yates MD Active ADULT ASPIRIN LOW STRENGTH 81 MG ORAL TABLET DISINTEGRATING 1 qd ASPIRIN 54615352597 Active Hope Benavidez MD PhD Active LEVAQUIN 750 MG ORAL TABLET 1 qd LEVAQUIN 750 MG ORAL TABLET 752992 LEVOFLOXACIN Inactive FLAGYL 500 MG ORAL TABLET 1 qid FLAGYL 500 MG ORAL TABLET 436488 METRONIDAZOLE Inactive MELOXICAM 15 MG ORAL TABLET 1 qd MELOXICAM 15 MG ORAL TABLET 846089 MELOXICAM Inactive SIMVASTATIN 40 MG ORAL TABLET 1 qd SIMVASTATIN 40 MG ORAL TABLET 268261 SIMVASTATIN Inactive PROZAC 20 MG ORAL CAPSULE 1 q d PROZAC 20 MG ORAL CAPSULE 935724 FLUOXETINE HCL Inactive DYAZIDE 37.5-25 MG ORAL CAPSULE 1 qd 5 DYAZIDE 37.5-25 MG ORAL CAPSULE 475226 TRIAMTERENE-HCTZ Inactive INNOPRAN XL 120 MG ORAL CAPSULE EXTENDED RELEASE 24 HO UR Take one by mouth daily INNOPRAN XL 120 MG ORAL CAPSULE EXTENDED RELEASE 24 HOUR PROPRANOLOL HCL SR BEADS Inactive PROMETHAZINE HCL 25 MG ORAL TABLET 1 Q. 4 hr. PRN 2013 PROMETHAZINE HCL 25 MG ORAL TABLET 315430 PROMETHAZINE HCL Inactive POTASSIUM CHLORIDE 20 MEQ ORAL PACKET by mouth twice a day prn 2 POTASSIUM CHLORIDE 20 MEQ ORAL PACKET 1149900 POTASSIUM CHLORIDE Inactive PHENADOZ 25 MG RECTAL SUPPOSITORY 1 every 4 hrs. PRN 2 PHENADOZ 25 MG RECTAL SUPPOSITORY 000641 PROMETHAZINE HCL Inactive ZOFRAN 8 MG ORAL TABLET 1 tab by mouth every 12 hours prn 4 ZOFRAN 8 MG ORAL TABLET 345811 ONDANSETRON HCL Inactive OMEPRAZOLE 20 MG ORAL CAPSULE DELAYED RELEASE 1 tablet by mo ut daily for GERD OMEPRAZOLE 20 MG ORAL CAPSULE DELAYED RELEASE 19 8051 OMEPRAZOLE Inactive CYCLOBENZAPRINE HCL 10 MG ORAL TABLET 1 tablet by mout h three times daily as needed for headaches CYCLOBENZAPRINE HCL 10 MG ORAL TABLET 227395 CYCLOBENZAPRINE HCL Inactive VITAMIN D3 4000 IU 1 tab 3 times daily VITAMIN D3 4000 IU Inactive PROPRANOLOL HCL 80 MG ORAL TABLET 1 tab tue. and thur. PROPRANOLOL HCL 80 MG ORAL TABLET 917355 PROPRANOLOL HCL Inacti ve CYANOCOBALAMIN 1000 MCG/ML INJECTION SOLUTION 1 injection ev ruben 2 weeks CYANOCOBALAMIN 1000 MCG/ML INJECTION SOLUTION 30 9594 CYANOCOBALAMIN Inactive MAGNESIUM GLUCONATE 250 MG ORAL TABLET 1 tab tid 23/10/23 MAGNESIUM GLUCONATE 250 MG ORAL TABLET 134763 MAGNESIUM GLUCONATE Inactive LOMOTIL 2.5-0.025 MG ORAL TABLET 1 tab by mouth prn 23/10/23 LOMOTIL 2.5-0.025 MG ORAL TABLET 7227466 DIPHENOXYLATE-ATROPINE Inac tive FLORANEX ORAL PACKET 1 pack three times daily, for bowel health FLORANEX ORAL PACKET 15129705177 LACTOBACILLUS Inactive IRON 325 (65 Fe) MG ORAL TABLET 1 every other day 2015 IRON 325 (65 Fe) MG ORAL TABLET 976990 FERROUS SULFATE Inactive FLAGYL 500 MG ORAL TABLET 1 pill by mouth three times daily, for diarrhea FLAGYL 500 MG ORAL TABLET 148787 METRONIDAZOLE I nactive BACTRIM DS 800-160 MG ORAL TABLET 1 pill by mouth twice claudio y, for UTI BACTRIM DS 800-160 MG ORAL TABLET 677722 SULFAMETHOXAZOLE-TRIMETHOPRIM Inactive Advance Directives Directive Description Start [...] ... - Chemistry sodium, serum 141 mmol/L 701-974 5668/01/10 potassium, serum 3.7 mmol/L 3.5-5.2 chloride, serum 101 mmol/L 98-107 carbon dioxide, venous blood 31.0 mmol/L 21.0-32 .0 blood glucose 96 mg/dL 65-95 calcium, serum 9.5 mg/dL 8.5-10.1 urea nitrogen, blood 21 mg/dL 7-18 creatinine, serum 1.40 mg/dL 0.60-1.30 Estimated Glomerular Filtration Rate (calc) 39 (?) mL/min/1.73m2 = OR > 60 mL/min cholesterol, serum 211 mg/dL 799-980 6453/01/10 triglyceride, serum, fasting 77 mg/dL 30-200 HDL [...] - Chem istry sodium, serum 142 mmol/L 532-606 4547/04/19 carbon dioxide, venous blood 30.2 mmol/L 21.0-32 [...] 3.4 mmol/L 3.5-5.2 sodium, serum 142 mmol/L 141-816 6851/11/02 creatinine, serum 1.35 mg/dL 0.60-1.30 blood glucose [...] mg/dL Encounters Code Encounter Date Provider Facility CPT-58934 Level 3 New Patient 12:08:54 CHRONOMETER ASSEMBLER Adam Yates MD [facility] CPT-77479 [id number] Vst-Est Level IV 19:48:30 CHRONOMETER ASSEMBLER Tracy Holt [facility] [place] CPT-35707 [id number] Vst-Est Level III 14:29:19 CDT Fiorella Holt [facility] [place] CPT-76586 Level 2 Est. Patient 14:58:26 CDT Kylie boyd [facility] [place] CPT-13045 Level 3 Est. Patient 08:15:24 CHRONOMETER ASSEMBLER Kylie boyd [facility] CPT-98346 Level 2 Est. Patient 14:27:16 CHRONOMETER ASSEMBLER Kylie boyd [facility] CPT-38121 Level 3 Est. Patient 17:54:48 CDT Kylie boyd [facility] CPT-54615 Level 3 Est. Patient 16:26:30 CDT Kina blackmon [facility] CPT-80523 Level 3 New Patient 16:22:01 CHRONOMETER ASSEMBLER Adam Yates MD [facility] CPT-02912 Level 4 Est. Patient 17:00:48 CDT Kylie boyd [facility] CPT-27068 Level 3 Est. Patient 13:15:54 CDT Kylie Lund [facility] CPT-83109 Level 3 Est. Patient 09:10:11 CDT Kylie boyd [facility] CPT-84493 Level 4 Est. Patient 12:08:30 CHRONOMETER ASSEMBLER Hope cohn MD [facility] CPT-74951 Level 4 Est. Patient 19:08:42 CHRONOMETER ASSEMBLER Hope cohn MD PhD [facility] CPT-74928 Level 4 Est. Patient 20:04:51 CDT Hope cohn MD PhD [facility] CPT-75103 Level 3 New Patient 01:46:11 CHRONOMETER ASSEMBLER Hope landers MD PhD [facility] Procedures Code Procedure Name Date Entry Date Standard Desc ription CPT-32781 Sono Soft Tissue Head and Neck - XRAY US E ONLY 11:56:06 CHRONOMETER ASSEMBLER CPT-95690 Abx/Therapy Injection 09:40:08 CHRONOMETER ASSEMBLER CPT-J0897 Prolia 60 mg 09:40:08 CHRONOMETER ASSEMBLER CPT-72830 First Vx - Ix admin for Medicare patients 02/08 10:02:45 CDT CPT-38653 Fluzone Quadrivalent Intramuscular Suspe nsion 0.5 ML 10:02:45 CDT CPT-48686 Magnesium - LAB USE ONLY 09:41:00 CDT 12/09 CPT-61343 Renal Panel - LAB USE ONLY 09:41:00 CDT 201 09/17/01 CPT-71384 Venipuncture Draw Fee 09:41:00 CDT CPT-66436 Calcium - LAB USE ONLY 17:25:11 CDT CPT-J0897 Prolia 60 mg 15:10:59 CDT CPT-29675 Abx/Therapy Injection 15:10:59 CDT CPT-G0439 Subsequent Annual Wellness Exam 14:29:19 CDT CPT-32028 Venipuncture Draw Fee 10:59:04 CDT CPT-17230 CMP - LAB USE ONLY 10:59:04 CDT CPT-83408 CBC with Diff - LAB USE ONLY 10:59:03 CDT 2 CPT-J0897 Prolia 60 mg 15:46:54 CHRONOMETER ASSEMBLER CPT-58972 Abx/Therapy Injection 15:46:54 CHRONOMETER ASSEMBLER CPT-52106 Microalbumin - LAB USE ONLY 09:41:32 CHRONOMETER ASSEMBLER 20 23/01/15 CPT-14114 Free T4 - LAB USE ONLY 09:41:32 CHRONOMETER ASSEMBLER CPT-63127 TSH - LAB USE ONLY 09:41:32 CHRONOMETER ASSEMBLER CPT-89770 BMP - LAB USE ONLY 09:41:32 CHRONOMETER ASSEMBLER CPT-15303 Venipuncture Draw Fee 09:41:32 CHRONOMETER ASSEMBLER CPT-39195 First Vx - Ix admin for Medicare patients 11:19:30 CDT CPT-43638 Fluzone High-Dose Intramuscular Suspension 12/07 11:19:30 CDT CPT-J0897 Prolia 60 mg 14:55:42 CDT CPT-24951 Abx/Therapy Injection 14:55:42 CDT CPT-97257 Bone Density - XRAY USE ONLY 10:27:12 CDT 2 CPT-G0439 Subsequent Annual Wellness Exam 17:54:53 CDT CPT-28115 Foot, left, comp min 3V - XRAY USE ONLY 12:22:49 CDT CPT-G0009 Administration of Pneumococcal Vaccine 3 12:18:00 CDT CPT-53403 Pneumovax 23 Injection Injectable 25 MCG /0.5ML 12:18:00 CDT CPT-J0897 Prolia 60 mg 14:14:16 CHRONOMETER ASSEMBLER CPT-55849 Abx/Therapy Injection 14:14:15 CHRONOMETER ASSEMBLER CPT-72574 Lipid - LAB USE ONLY 10:01:52 CHRONOMETER ASSEMBLER 2 CPT-77472 Calcium - LAB USE ONLY 10:01:51 CHRONOMETER ASSEMBLER CPT-27622 Venipuncture Draw Fee 10:01:51 CHRONOMETER ASSEMBLER CPT-LR Lesion Removal 16:22:01 CHRONOMETER ASSEMBLER CPT-87167 TSH - LAB USE ONLY 14:26:02 CDT CPT-63890 CMP - LAB USE ONLY 14:26:01 CDT CPT-14824 CBC with Diff - LAB USE ONLY 14:26:01 CDT 2 CPT-77715 Venipuncture Draw Fee 14:26:01 CDT CPT-89836 First Vx - Ix admin for Medicare patients 13:27:08 CDT CPT-78569 Fluzone High-Dose Intramuscular Suspension 11/26 13:27:08 CDT CPT-G0438 Initial Annual Wellness Exam 14:19:57 CD T CPT-G0009 Administration of Pneumococcal Vaccine 9 11:36:25 CDT CPT-58010 Prevnar 13 Intramuscular Suspension 1 1:36:25 CDT CPT-73457 Prevnar 13 Intramuscular Suspension 1 0:40:58 CDT CPT-J0897 Prolia 60 mg 10:37:16 CDT CPT-48517 Abx/Therapy Injection 10:37:16 CDT CPT-J0897 Prolia 60 mg 16:09:34 CHRONOMETER ASSEMBLER CPT-J0897 Prolia 60 mg 11:10:35 CHRONOMETER ASSEMBLER CPT-68861 Abx/Therapy Injection 11:10:35 CHRONOMETER ASSEMBLER CPT-000 Give Appropriate Flu Vaccine 17:01:15 CHRONOMETER ASSEMBLER 2 CPT-09423 Fluzone High Dose (65+) 15:03:08 CHRONOMETER ASSEMBLER 02/15 CPT-38570 Immunization Single Admin 15:03:08 CHRONOMETER ASSEMBLER 2014 CPT-OV Office Visit 15:58:06 CDT CPT-J0897 Prolia 60 mg 08:45:38 CDT CPT-69230 Abx/Therapy Injection 08:45:38 CDT CPT-J3420 Vitamin B12 1000mcg (Cyanocobalamin) 09:26:20 CHRONOMETER ASSEMBLER CPT-35127 Abx/Therapy Injection 09:26:20 CHRONOMETER ASSEMBLER CPT-J3420 Vitamin B12 1000mcg (Cyanocobalamin) 09:44:40 CHRONOMETER ASSEMBLER CPT-54143 Abx/Therapy Injection 09:44:40 CHRONOMETER ASSEMBLER CPT-J3420 Vitamin B12 1000mcg (Cyanocobalamin) 09:15:54 CHRONOMETER ASSEMBLER CPT-94793 Abx/Therapy Injection 09:15:54 CHRONOMETER ASSEMBLER CPT-J3420 Vitamin B12 1000mcg (Cyanocobalamin) 09:46:44 CHRONOMETER ASSEMBLER CPT-48087 Abx/Therapy Injection 09:46:44 CHRONOMETER ASSEMBLER CPT-J3420 Vitamin B12 1000mcg (Cyanocobalamin) 09:47:34 CHRONOMETER ASSEMBLER CPT-78936 Abx/Therapy Injection 09:47:34 CHRONOMETER ASSEMBLER CPT-J3420 Vitamin B12 1000mcg (Cyanocobalamin) 14:35:50 CHRONOMETER ASSEMBLER CPT-J3420 Vitamin B12 1000mcg (Cyanocobalamin) 09:25:05 CHRONOMETER ASSEMBLER CPT-92681 Abx/Therapy Injection 09:25:05 CHRONOMETER ASSEMBLER CPT-G0008 Administration of Influenza Virus Vaccine 13:36:47 CDT CPT-11527 Fluzone High-Dose Intramuscular Suspension 11/15 13:36:47 CDT CPT-J0897 Prolia 60 mg 08:50:41 CDT CPT-53525 Abx/Therapy Injection 08:50:41 CDT CPT-70107 Bone Density 12:06:12 CDT CPT-88846 Bone Density 08:54:40 CDT CPT-OV Office Visit 15:37:02 CDT CPT-95824 Postop F/U Visit 15:47:49 CDT CPT-96278 Postop F/U Visit 15:21:02 CDT CPT-TCMH Transitional Care Mgmt-High 07:52:27 CDT 20 20/06/01 CPT-02434 Venipuncture Draw Fee 13:51:18 CDT CPT-88716 Venipuncture Draw Fee 10:14:55 CHRONOMETER ASSEMBLER CPT-53216 Venipuncture Draw Fee 13:39:45 CHRONOMETER ASSEMBLER CPT-OV Office Visit 15:11:22 CHRONOMETER ASSEMBLER CPT-43872 Venipuncture Draw Fee 09:20:49 CHRONOMETER ASSEMBLER CPT-33797 Venipuncture Draw Fee 16:52:15 CHRONOMETER ASSEMBLER CPT-04564 Venipuncture Draw Fee 10:37:24 CHRONOMETER ASSEMBLER CPT-15064 Venipuncture Draw Fee 08:21:21 CHRONOMETER ASSEMBLER CPT-46190 Venipuncture Draw Fee 08:30:20 CHRONOMETER ASSEMBLER CPT-23878 Venipuncture Draw Fee 14:53:21 CHRONOMETER ASSEMBLER CPT-53659 Venipuncture Draw Fee 09:40:56 CHRONOMETER ASSEMBLER CPT-96776 Venipuncture Draw Fee 10:30:47 CHRONOMETER ASSEMBLER CPT-41930 Venipuncture Draw Fee 10:46:17 CHRONOMETER ASSEMBLER CPT-80642 Venipuncture Draw Fee 11:12:45 CHRONOMETER ASSEMBLER CPT-03997 Venipuncture Draw Fee 09:53:33 CHRONOMETER ASSEMBLER CPT-24497 Venipuncture Draw Fee 11:53:51 CHRONOMETER ASSEMBLER CPT-33913 Venipuncture Draw Fee 10:33:50 CHRONOMETER ASSEMBLER CPT-61982 Venipuncture Draw Fee 10:05:01 CHRONOMETER ASSEMBLER CPT-17371 Venipuncture Draw Fee 14:32:52 CHRONOMETER ASSEMBLER CPT-93454 Venipuncture Draw Fee 09:46:13 CHRONOMETER ASSEMBLER CPT-00530 Venipuncture Draw Fee 11:34:27 CHRONOMETER ASSEMBLER CPT-60756 Venipuncture Draw Fee 13:17:16 CHRONOMETER ASSEMBLER CPT-15569 Venipuncture Draw Fee 12:05:39 CDT CPT-05260 Venipuncture Draw Fee 12:49:12 CDT CPT-85732 Venipuncture Draw Fee 12:37:18 CDT CPT-85058 Venipuncture Draw Fee 10:57:11 CDT CPT-80721 Venipuncture Draw Fee 13:47:40 CDT CPT-74055 Venipuncture Draw Fee 10:02:17 CDT CPT-91022 TB Tubersol 17:32:32 CDT CPT-OV Office Visit 16:21:53 CDT CPT-OV Office Visit 15:49:22 CDT CPT-OV Office Visit 17:16:31 CDT CPT-OV Office Visit 10:43:31 CDT
--- OUTSIDE RECORDS SUMMARY | 2019-02-09 12:00 | XMS REPORT | Clinical Summary ---
Author Author Renaldo, Florecita Munoz Organization [facility] Address Unknown Phone Unavailable Allergies, Adverse Reactions, [...] PhD Hyperpotassemia GERD 530.81 Resolved Kylie Yokum WHITE SOURER Esophageal reflux Health maintenance exam V70.0 Resolved Adolfo Yates MD Routine general medical examination at a health care facility Anemia 285.9 Resolved Kylie Yanet WHITE S[employer]ER Anemia, unspecified Personal history of malignant neoplasm of large intestine V10.05 Active Adam Yates MD Personal history of malignant neoplasm of large intestine Hypomagnesemia 275.2 Resolved Kylie Yanet WHITE SOURER Disorders of magnesium metabolism Weakness 780.79 Resolved [...] Sebaceous cyst, scalp 706.2 Resolved Kylie Yokum WHITE SOURER Sebaceous cyst Cervical lymphadenopathy, anterior, left 785.6 Resolv ed Kylie Yokum WHITE SOURER Enlargement of lymph nodes Need for prophylactic vaccination and inoculation against in fluenza V04.81 Resolved Adam Yates MD Need for prophylactic vaccination and inoculation against influenza Preventive health care V70.0 Resolved Kylie Escalonaku m WHITE SOURER Routine general medical examination at a health care facility Thyroid nodule, left 241.0 Active Kylie Yokum A PRN Nontoxic uninodular goiter Screening mammogram V76.12 Resolved Kylie Yokum A PRN Other screening mammogram Mandy 706.2 Resolved Kylie Yokum WHITE S[employer]ER Sebaceous cyst Colon cancer, ascending 153.6 Resolved Kylie Yok um WHITE SOURER Malignant neoplasm of ascending colon Foot pain, left 729.5 Resolved Kylie Yokum WHITE SOURER Pain in limb Splinter 919.6 Resolved Kylie Yokum WHITE SOURER Superficial foreign body (splinter) of other, multiple, and unspecified sites, without major open wound and without mention of infection Rash 782.1 Resolved Kylie Yokum WHITE SOURER Rash and other nonspecific skin eruption Cyst 706.2 Resolved Kylie Yokum WHITE SOURER Sebaceous cyst Body Mass Index 23.0-23.9 Adult Active Kylie Yokum WHITE SOURER Body Mass Index between 19-24, adult Unspecified fall, initial encounter E888.9 Inactive Kylie Lundoliver REYES Unspecified fall Eye pain, left 379.91 Inactive Kylie Escalonagabbioliver AMY Pain in or around eye Pharyngitis, acute [...] 240.9 Active Citlaly Watkins A Goiter, unspecified ABDOMINAL PAIN, RIGHT LOWER QUADRANT ICD-789.03 Inactive Kina Joshua WHITE SOURER ADENOCARCINOMA, COLON, 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 Dick Yates MD ABDOMINAL PAIN, GENERALIZED ICD-789.07 Inactive Hope Benavidez MD PhD FEVER UNSPECIFIED ICD-780.60 Inactive Hope cohn MD PhD UNSPECIFIED VENOUS INSUFFICIENCY ICD-459.81 [place] ctive Adam Yates MD ADENOCARCINOMA, 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 Inac tive Hope Benavidez MD PhD Hyperkalemia ICD-276.7 Inactive Hope Benavidez MD PhD GERD ICD-530.81 Inactive Kylie Holt WHITE SOURER 2015 Health maintenance exam ICD-V70.0 Inactive Adolfo Yates MD Anemia ICD-285.9 Inactive Kylie Yokum WHITE S[employer]ER 07/24 Hypomagnesemia ICD-275.2 Inactive Kylie Yokum WH[employer]ER Weakness ICD-780.79 Inactive Hope Benavidez MD P [...] cyst, scalp ICD-706.2 Inactive Tracy hi Yokum WHITE SOURER Cervical lymphadenopathy, anterior, left ICD-785.6 Inactive Kylie Yokum WHITE SOURER Need for prophylactic vaccination and inoculation against in fluenza ICD-V04.81 Inactive Adam Yates MD Preventive health care ICD-V70.0 Inactive Ka thi Yokum WHITE SOURER Screening mammogram ICD-V76.12 Inactive Kylie Yokum WHITE SOURER Mandy ICD-706.2 Inactive Kylie Holt WHITE SOURER 07/20 Colon cancer, ascending ICD-153.6 Inactive K umang Holt WHITE SOURER Foot pain, left ICD-729.5 Inactive Kylie Holt WHITE S[employer]ER Splinter ICD-919.6 Inactive Kylie Holt WHITE SOURER 2017 Rash ICD-782.1 Inactive Kylie Lundum WHITE SOURER 07/25 Cyst ICD-706.2 Inactive Kylie Holt WHITE SOURER 08/11 Unspecified fall, initial encounter ICD-E888.9 Inactive Kylie Holt WHITE SOURER Eye pain, left ICD-379.91 Inactive Kylie Holt WHITE SOURER Medication List Medication Instructions Start Date Stop Date Generic Name NDC Status Provider Patient Instruction VOLTAREN 1 % TRANSDERMAL GEL apply 2 grams q 6-8 hour to left arm as needed for pain DICLOFENAC SODIUM 17086664160 Active Kylie Holt APR N Active IMODIUM A-D 2 MG ORAL TABLET 1 tablet twice a day LOPERAMIDE HCL 93733016903 Active Kylie Holt APRN Active COQ10 100 MG ORAL CAPSULE 1 daily COENZYME Q10 211488 59775 Active LETY Nation Active VITAMIN D3 2000 UNIT ORAL CAPSULE Melaleuca-One daily CHOLECALCIFEROL 04376458377 Active Kylie Holt APRN Active PROBIOTIC DAILY ORAL CAPSULE Take one daily PROBIO TIC PRODUCT 44437684879 Active Kylie Holt APRN Active IRON 325 (65 Fe) MG ORAL TABLET 1 every other day FERROUS SULFATE 39029472035 No Longer Active Kylie Holt APRN Active FLORANEX ORAL PACKET 1 pack three times daily, for bowel health LACTOBACILLUS 87175528673 No Longer Active Kylie Yokum WHITE S[employer]ER Active LOMOTIL 2.5-0.025 MG ORAL TABLET 1 tab by mouth prn 20 23/10/23 DIPHENOXYLATE-ATROPINE 27765712281 No Longer Active Kylie Yokum WHITE S[employer]ER Active MAGNESIUM GLUCONATE 250 MG ORAL TABLET 1 tab tid 20 23/10/23 MAGNESIUM GLUCONATE 33796302950 No Longer Active Kylie Yokum WHITE SOURER Active CYANOCOBALAMIN 1000 MCG/ML INJECTION SOLUTION 1 injection ev ruben 2 weeks CYANOCOBALAMIN 33102360712 No Longer Active Kylie Yok um WHITE SOURER Active ATENOLOL 25 MG ORAL TABLET 1/2 pill by mouth daily, fo r headaches, blood pressure ATENOLOL 37776140406 Active Kylie Yokum WHITE SOURER Active PROPRANOLOL HCL 80 MG ORAL TABLET 1 tab tue. and thur. PROPRANOLOL HCL 60327311387 No Longer Active Hope Benavidez MD PhD A ctive VITAMIN D3 4000 IU 1 tab 3 times daily VITAMIN D3 4000 IU No Longer Active Hope Benavidez MD PhD Active BACTRIM DS 800-160 MG ORAL TABLET 1 pill by mouth twice claudio y, for UTI SULFAMETHOXAZOLE-TRIMETHOPRIM 02611298894 No Longer Active Hope Benavidez MD PhD Active PROLIA 60 MG/ML SUBCUTANEOUS SOLUTION 1 shot every 6 months for osteoprosis DENOSUMAB 51299889203 Active Hope Benavidez MD PhD Active CALCIUM + D + K 750-500-40 MG-UNT-MCG ORAL TABLET 1 tab by m out twice daily CALCIUM-VITAMIN D-VITAMIN K 22093749678 Active Hope valdez MD PhD Active DAILY VALUE MULTIVITAMIN ORAL TABLET 1 tab by mouth twice daily 201 05/16/14 MULTIPLE VITAMIN 55099565640 Active Hope Benavidez MD PhD Acti ve FISH OIL 306 MG CAPS 1 tab by mouth three times daily OMEGA-3 FATTY ACIDS 43843641170 Active Hope Benavidez MD PhD Active LUTEIN 10 MG ORAL TABLET 1 tab daily LUTEIN 98942148 408 Active Hope Benavidez MD PhD Active TRIAMTERENE-HCTZ 37.5-25 MG ORAL TABLET 1 tab by mouth daily 10/22 TRIAMTERENE-HCTZ 03599069640 Active Kylie Holt WH[employer]ER Active CYCLOBENZAPRINE HCL 10 MG ORAL TABLET 1 tablet by [facility] three times daily as needed for headaches CYCLOBENZAPRINE HCL 07753492907 No Longer Active Adam Yates MD Active OMEPRAZOLE 20 MG ORAL CAPSULE DELAYED RELEASE 1 tablet by [facility] daily for GERD OMEPRAZOLE 13997709679 No Longer Active Adam Yates MD Active ZOFRAN 8 MG ORAL TABLET 1 tab by mouth every 12 hours prn 4 ONDANSETRON HCL 57780603871 No Longer Active Adam Yates MD Active PHENADOZ 25 MG RECTAL SUPPOSITORY 1 every 4 hrs. PRN 2 PROMETHAZINE HCL 75737956267 No Longer Active Adam Yates MD A ctive POTASSIUM CHLORIDE 20 MEQ ORAL PACKET by mouth twice a day prn 2 POTASSIUM CHLORIDE 87666705151 No Longer Active Adam Carpenter MD Active PROMETHAZINE HCL 25 MG ORAL TABLET 1 Q. 4 hr. PRN PROMETHAZINE HCL 69763292940 No Longer Active Adam Yates MD Active INNOPRAN XL 120 MG ORAL CAPSULE EXTENDED RELEASE 24 HO UR Take one by mouth daily PROPRANOLOL HCL SR BEADS 46126933931 No Longer Active Adam Yates MD Active FLAGYL 500 MG ORAL TABLET 1 pill by mouth three times daily, for diarrhea METRONIDAZOLE 31044632924 No Longer Active Hope landers MD PhD Active DYAZIDE 37.5-25 MG ORAL CAPSULE 1 qd TRIA MTERENE-HCTZ 13707090638 No Longer Active Hope Benavidez MD PhD Active PROZAC 20 MG ORAL CAPSULE 1 q d FLUOXETINE HCL 38067081630 No Longer Active Hope Benavidez MD PhD Active SIMVASTATIN 40 MG ORAL TABLET 1 qd SIMVAS TATIN 19459163994 No Longer Active Adam Yates MD Active MELOXICAM 15 MG ORAL TABLET 1 qd MELOXICAM 12135030242 No Longer Active Adam Yates MD Active EXCEDRIN EXTRA STRENGTH 250-250-65 MG ORAL TABLET 1-2 q6h WA N headache [id number] 25136756107 Active Hope Benavidez MD PhD Active FLAGYL 500 MG ORAL TABLET 1 qid METRONIDAZOL E 67759705051 No Longer Active Adam Yates MD Active LEVAQUIN 750 MG ORAL TABLET 1 qd LEVOFLOXAC IN 06525609521 No Longer Active Adam Yates MD Active ADULT ASPIRIN LOW STRENGTH 81 MG ORAL TABLET DISINTEGRATING 1 qd ASPIRIN 56335879438 Active Hope Benavidez MD PhD Active LEVAQUIN 750 MG ORAL TABLET 1 qd LEVAQUIN 750 MG ORAL TABLET 714161 LEVOFLOXACIN Inactive FLAGYL 500 MG ORAL TABLET 1 qid FLAGYL 500 MG ORAL TABLET 508971 METRONIDAZOLE Inactive MELOXICAM 15 MG ORAL TABLET 1 qd MELOXICAM 15 MG ORAL TABLET 685387 MELOXICAM Inactive SIMVASTATIN 40 MG ORAL TABLET 1 qd SIMVASTATIN 40 MG ORAL TABLET 859395 SIMVASTATIN Inactive PROZAC 20 MG ORAL CAPSULE 1 q d PROZAC 20 MG ORAL CAPSULE 802033 FLUOXETINE HCL Inactive DYAZIDE 37.5-25 MG ORAL CAPSULE 1 qd 5 DYAZIDE 37.5-25 MG ORAL CAPSULE 902917 TRIAMTERENE-HCTZ Inactive INNOPRAN XL 120 MG ORAL CAPSULE EXTENDED RELEASE 24 HO UR Take one by mouth daily INNOPRAN XL 120 MG ORAL CAPSULE EXTENDED RELEASE 24 HOUR PROPRANOLOL HCL SR BEADS Inactive PROMETHAZINE HCL 25 MG ORAL TABLET 1 Q. 4 hr. PRN 2013 PROMETHAZINE HCL 25 MG ORAL TABLET 130100 PROMETHAZINE HCL Inactive POTASSIUM CHLORIDE 20 MEQ ORAL PACKET by mouth twice a day prn 2 POTASSIUM CHLORIDE 20 MEQ ORAL PACKET 0174078 POTASSIUM CHLORIDE Inactive PHENADOZ 25 MG RECTAL SUPPOSITORY 1 every 4 hrs. PRN 2 PHENADOZ 25 MG RECTAL SUPPOSITORY 324340 PROMETHAZINE HCL Inactive ZOFRAN 8 MG ORAL TABLET 1 tab by mouth every 12 hours prn 4 ZOFRAN 8 MG ORAL TABLET 780685 ONDANSETRON HCL Inactive OMEPRAZOLE 20 MG ORAL CAPSULE DELAYED RELEASE 1 tablet by mo [facility] daily for GERD OMEPRAZOLE 20 MG ORAL CAPSULE DELAYED RELEASE 19 8051 OMEPRAZOLE Inactive CYCLOBENZAPRINE HCL 10 MG ORAL TABLET 1 tablet by mout three times daily as needed for headaches CYCLOBENZAPRINE HCL 10 MG ORAL TABLET 340315 CYCLOBENZAPRINE HCL Inactive VITAMIN D3 4000 IU 1 tab 3 times daily VITAMIN D3 4000 IU Inactive PROPRANOLOL HCL 80 MG ORAL TABLET 1 tab tue. and thur. PROPRANOLOL HCL 80 MG ORAL TABLET 470366 PROPRANOLOL HCL Inacti ve CYANOCOBALAMIN 1000 MCG/ML INJECTION SOLUTION 1 injection ev ruben 2 weeks CYANOCOBALAMIN 1000 MCG/ML INJECTION SOLUTION 30 9594 CYANOCOBALAMIN Inactive MAGNESIUM GLUCONATE 250 MG ORAL TABLET 1 tab tid 23/10/23 MAGNESIUM GLUCONATE 250 MG ORAL TABLET 442636 MAGNESIUM GLUCONATE Inactive LOMOTIL 2.5-0.025 MG ORAL TABLET 1 tab by mouth prn 23/10/23 LOMOTIL 2.5-0.025 MG ORAL TABLET 6138866 DIPHENOXYLATE-ATROPINE Inac tive FLORANEX ORAL PACKET 1 pack three times daily, for bowel health FLORANEX ORAL PACKET 49979538680 LACTOBACILLUS Inactive IRON 325 (65 Fe) MG ORAL TABLET 1 every other day 2015 IRON 325 (65 Fe) MG ORAL TABLET 850286 FERROUS SULFATE Inactive FLAGYL 500 MG ORAL TABLET 1 pill by mouth three times daily, for diarrhea FLAGYL 500 MG ORAL TABLET 070693 METRONIDAZOLE I nactive BACTRIM DS 800-160 MG ORAL TABLET 1 pill by mouth twice claudio y, for UTI BACTRIM DS 800-160 MG ORAL TABLET 304405 SULFAMETHOXAZOLE-TRIMETHOPRIM Inactive Advance Directives Directive Description Start [...] ... - Chemistry sodium, serum 141 mmol/L 233-417 0432/01/10 potassium, serum 3.7 mmol/L 3.5-5.2 chloride, serum 101 mmol/L 98-107 carbon dioxide, venous blood 31.0 mmol/L 21.0-32 .0 blood glucose 96 mg/dL 65-95 calcium, serum 9.5 mg/dL 8.5-10.1 urea nitrogen, blood 21 mg/dL 7-18 creatinine, serum 1.40 mg/dL 0.60-1.30 Estimated Glomerular Filtration Rate (calc) 39 (?) mL/min/1.73m2 = OR > 60 mL/min cholesterol, serum 211 mg/dL 066-771 2280/01/10 triglyceride, serum, fasting 77 mg/dL 30-200 HDL [...] - Chem istry sodium, serum 142 mmol/L 621-938 9538/04/19 carbon dioxide, venous blood 30.2 mmol/L 21.0-32 [...] - Chelle radha sodium, serum 142 mmol/L 730-101 3272/11/02 potassium, serum 3.4 mmol/L 3.5-5.2 chloride, serum [...] mg/dL Encounters Code Encounter Date Provider Facility CPT-37896 [id number] Vst-Est Level IV 19:48:30 [employer] INS[employer]ANCE UNDERWRITER Tracy jalloh Yanet [facility] [place] CPT-64902 [id number] Vst-Est Level III 14:29:19 CDT Fiorella enrico Yanet [facility] [place] CPT-56923 Level 2 Est. Patient 14:58:26 CDT Kylie Lund [facility] [place] CPT-81954 Level 3 Est. Patient 08:15:24 LIFE INSURANCE UNDERWRITER Kylie Lund [facility] [place] CPT-13438 Level 2 Est. Patient 14:27:16 LIFE INSURANCE UNDERWRITER Kylie Lund [facility] [place] CPT-71326 Level 3 Est. Patient 17:54:48 CDT [facility] CPT-55340 Level 3 Est. Patient 16:26:30 CDT Kina blackmon [facility] CPT-95222 Level 3 New Patient 16:22:01 LIFE INSURANCE UNDERWRITER Adam Yates MD [facility] CPT-86633 Level 4 Est. Patient 17:00:48 CDT Kylie Lund [facility] CPT-49139 Level 3 Est. Patient 13:15:54 CDT Kylie Lund [facility] CPT-63734 Level 3 Est. Patient 09:10:11 CDT Kylie Lund [facility] CPT-68852 Level 4 Est. Patient 12:08:30 LIFE INSURANCE UNDERWRITER Hoep cohn MD [facility] CPT-00222 Level 4 Est. Patient 19:08:42 LIFE INSURANCE UNDERWRITER Hope cohn MD [facility] CPT-67430 Level 4 Est. Patient 20:04:51 CDT Hope cohn MD [facility] CPT-20728 Level 3 New Patient 01:46:11 LIFE INS[employer]ANCE UNDERWRITER Hope landers MD [facility] Procedures Code Procedure Name Date Entry Date Standard Desc ription CPT-88006 Sono Soft Tissue Head and Neck - XRAY US E ONLY 11:56:06 [employer] INS[employer]ANCE UNDERWRITER CPT-68780 Abx/Therapy Injection 09:40:08 [employer] INSURANCE UNDERWRITER CPT-J0897 Prolia 60 mg 09:40:08 LIFE INSURANCE UNDERWRITER CPT-16635 First Vx - Ix admin for Medicare patients 02/08 10:02:45 CDT CPT-82510 Fluzone Quadrivalent Intramuscular Suspe nsion 0.5 ML 10:02:45 CDT CPT-16993 Magnesium - LAB USE ONLY 09:41:00 CDT 12/09 CPT-32946 Renal Panel - LAB USE ONLY 09:41:00 CDT 201 09/17/01 CPT-61105 Venipuncture Draw Fee 09:41:00 CDT CPT-75274 Calcium - LAB USE ONLY 17:25:11 CDT CPT-J0897 Prolia 60 mg 15:10:59 CDT CPT-83859 Abx/Therapy Injection 15:10:59 CDT CPT-G0439 [facility] Annual Wellness Exam 14:29:19 CDT CPT-17431 Venipuncture Draw Fee 10:59:04 CDT CPT-36171 CMP - LAB USE ONLY 10:59:04 CDT CPT-30914 CBC with Diff - LAB USE ONLY 10:59:03 CDT 2 CPT-J0897 Prolia 60 mg 15:46:54 LIFE INSURANCE UNDERWRITER CPT-91673 Abx/Therapy Injection 15:46:54 LIFE INSURANCE UNDERWRITER CPT-76807 Microalbumin - LAB USE ONLY 09:41:32 LIFE INSURANCE UNDERWRITER 20 23/01/15 CPT-30102 Free T4 - LAB USE ONLY 09:41:32 LIFE INSURANCE UNDERWRITER CPT-67736 TSH - LAB USE ONLY 09:41:32 LIFE INSURANCE UNDERWRITER CPT-36527 BMP - LAB USE ONLY 09:41:32 LIFE INSURANCE UNDERWRITER CPT-88354 Venipuncture Draw Fee 09:41:32 LIFE INSURANCE UNDERWRITER CPT-81058 First Vx - Ix admin for Medicare patients 11:19:30 CDT CPT-47070 Fluzone High-Dose Intramuscular Suspension 12/07 11:19:30 CDT CPT-J0897 Prolia 60 mg 14:55:42 CDT CPT-79723 Abx/Therapy Injection 14:55:42 CDT CPT-73688 Bone Density - XRAY USE ONLY 10:27:12 CDT 2 CPT-G0439 [facility] Subsequent Annual Wellness Exam 17:54:53 CDT CPT-15771 Foot, left, comp min 3V - XRAY USE ONLY 12:22:49 CDT CPT-G0009 Administration of Pneumococcal Vaccine 3 12:18:00 CDT CPT-23472 Pneumovax 23 Injection Injectable 25 MCG /0.5ML 12:18:00 CDT CPT-J0897 Prolia 60 mg 14:14:16 [employer]ANCE UNDERWRITER CPT-08651 Abx/Therapy Injection 14:14:15 LIFE INSURANCE UNDERWRITER CPT-16363 Lipid - LAB USE ONLY 10:01:52 LIFE INSURANCE UNDERWRITER 2 CPT-91877 Calcium - LAB USE ONLY 10:01:51 LIFE INSURANCE UNDERWRITER CPT-53045 Venipuncture Draw Fee 10:01:51 LIFE INSURANCE UNDERWRITER CPT-LR Lesion Removal 16:22:01 LIFE INSURANCE UNDERWRITER CPT-01783 TSH - LAB USE ONLY 14:26:02 CDT CPT-64337 CMP - LAB USE ONLY 14:26:01 CDT CPT-76224 CBC with Diff - LAB USE ONLY 14:26:01 CDT 2 CPT-86208 Venipuncture Draw Fee 14:26:01 CDT CPT-49345 First Vx - Ix admin for Medicare patients 13:27:08 CDT CPT-66381 Fluzone High-Dose Intramuscular Suspension 11/26 13:27:08 CDT CPT-G0438 Initial Annual Wellness Exam 14:19:57 CD T CPT-G0009 Administration of Pneumococcal Vaccine 9 11:36:25 CDT CPT-11343 Prevnar 13 Intramuscular Suspension 1 1:36:25 CDT CPT-24044 Prevnar 13 Intramuscular Suspension 1 0:40:58 CDT CPT-J0897 Prolia 60 mg 10:37:16 CDT CPT-63272 Abx/Therapy Injection 10:37:16 CDT CPT-J0897 Prolia 60 mg 16:09:34 [employer] INSURANCE UNDERWRITER CPT-J0897 Prolia 60 mg 11:10:35 LIFE INSURANCE UNDERWRITER CPT-91599 Abx/Therapy Injection 11:10:35 LIFE INSURANCE UNDERWRITER CPT-000 Give Appropriate Flu Vaccine 17:01:15 LIFE INSURANCE UNDERWRITER 2 CPT-06390 Fluzone High Dose (65+) 15:03:08 LIFE INSURANCE UNDERWRITER 02/15 CPT-03851 Immunization Single Admin 15:03:08 LIFE INSURANCE UNDERWRITER 2014 CPT-OV Office Visit 15:58:06 CDT CPT-J0897 Prolia 60 mg 08:45:38 CDT CPT-10814 Abx/Therapy Injection 08:45:38 CDT CPT-J3420 Vitamin B12 1000mcg (Cyanocobalamin) 09:26:20 LIFE INSURANCE UNDERWRITER CPT-50640 Abx/Therapy Injection 09:26:20 LIFE INSURANCE UNDERWRITER CPT-J3420 Vitamin B12 1000mcg (Cyanocobalamin) 09:44:40 LIFE INSURANCE UNDERWRITER CPT-00083 Abx/Therapy Injection 09:44:40 LIFE INSURANCE UNDERWRITER CPT-J3420 Vitamin B12 1000mcg (Cyanocobalamin) 09:15:54 LIFE INSURANCE UNDERWRITER CPT-69872 Abx/Therapy Injection 09:15:54 LIFE INSURANCE UNDERWRITER CPT-J3420 Vitamin B12 1000mcg (Cyanocobalamin) 09:46:44 LIFE INSURANCE UNDERWRITER CPT-37200 Abx/Therapy Injection 09:46:44 LIFE INSURANCE UNDERWRITER CPT-J3420 Vitamin B12 1000mcg (Cyanocobalamin) 09:47:34 LIFE INSURANCE UNDERWRITER CPT-64704 Abx/Therapy Injection 09:47:34 LIFE INSURANCE UNDERWRITER CPT-J3420 Vitamin B12 1000mcg (Cyanocobalamin) 14:35:50 LIFE INSURANCE UNDERWRITER CPT-J3420 Vitamin B12 1000mcg (Cyanocobalamin) 09:25:05 LIFE INSURANCE UNDERWRITER CPT-59196 Abx/Therapy Injection 09:25:05 LIFE INSURANCE UNDERWRITER CPT-G0008 Administration of Influenza Virus Vaccine 13:36:47 CDT CPT-75870 Fluzone High-Dose Intramuscular Suspension 11/15 13:36:47 CDT CPT-J0897 Prolia 60 mg 08:50:41 CDT CPT-14777 Abx/Therapy Injection 08:50:41 CDT CPT-86826 Bone Density 12:06:12 CDT CPT-41577 Bone Density 08:54:40 CDT CPT-OV Office Visit 15:37:02 CDT CPT-14407 Postop F/U Visit 15:47:49 CDT CPT-88911 Postop F/U Visit 15:21:02 CDT CPT-TCMH Transitional Care Mgmt-High 07:52:27 CDT 20 20/06/01 CPT-62326 Venipuncture Draw Fee 13:51:18 CDT CPT-45179 Venipuncture Draw Fee 10:14:55 [employer] INSURANCE UNDERWRITER CPT-18211 Venipuncture Draw Fee 13:39:45 LIFE INSURANCE UNDERWRITER CPT-OV Office Visit 15:11:22 LIFE INSURANCE UNDERWRITER CPT-15014 Venipuncture Draw Fee 09:20:49 LIFE INSURANCE UNDERWRITER CPT-15150 Venipuncture Draw Fee 16:52:15 LIFE INSURANCE UNDERWRITER CPT-67097 Venipuncture Draw Fee 10:37:24 LIFE INSURANCE UNDERWRITER CPT-20375 Venipuncture Draw Fee 08:21:21 LIFE INSURANCE UNDERWRITER CPT-41850 Venipuncture Draw Fee 08:30:20 LIFE INSURANCE UNDERWRITER CPT-14237 Venipuncture Draw Fee 14:53:21 LIFE INSURANCE UNDERWRITER CPT-46637 Venipuncture Draw Fee 09:40:56 LIFE INSURANCE UNDERWRITER CPT-75715 Venipuncture Draw Fee 10:30:47 LIFE INSURANCE UNDERWRITER CPT-14291 Venipuncture Draw Fee 10:46:17 LIFE INSURANCE UNDERWRITER CPT-90077 Venipuncture Draw Fee 11:12:45 LIFE INSURANCE UNDERWRITER CPT-93064 Venipuncture Draw Fee 09:53:33 LIFE INSURANCE UNDERWRITER CPT-39205 Venipuncture Draw Fee 11:53:51 LIFE INSURANCE UNDERWRITER CPT-79677 Venipuncture Draw Fee 10:33:50 LIFE INSURANCE UNDERWRITER CPT-23026 Venipuncture Draw Fee 10:05:01 LIFE INSURANCE UNDERWRITER CPT-47515 Venipuncture Draw Fee 14:32:52 LIFE INSURANCE UNDERWRITER CPT-37008 Venipuncture Draw Fee 09:46:13 LIFE INSURANCE UNDERWRITER CPT-53240 Venipuncture Draw Fee 11:34:27 LIFE INSURANCE UNDERWRITER CPT-92057 Venipuncture Draw Fee 13:17:16 LIFE INSURANCE UNDERWRITER CPT-27630 Venipuncture Draw Fee 12:05:39 CDT CPT-94439 Venipuncture Draw Fee 12:49:12 CDT CPT-48469 Venipuncture Draw Fee 12:37:18 CDT CPT-59564 Venipuncture Draw Fee 10:57:11 CDT CPT-04429 Venipuncture Draw Fee 13:47:40 CDT CPT-13550 Venipuncture Draw Fee 10:02:17 CDT CPT-76960 TB Tubersol 17:32:32 CDT CPT-OV Office Visit 16:21:53 CDT CPT-OV Office Visit 15:49:22 CDT CPT-OV Office Visit 17:16:31 CDT CPT-OV Office Visit 10:43:31 CDT
--- OUTSIDE RECORDS SUMMARY | 2019-02-09 12:00 | XMS REPORT | Clinical Summary ---
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 Active Adam Yates MD Personal history of malignant neoplasm of large intestine Hypomagnesemia 275.2 Resolved Kylie Holt [employer] Disorders of magnesium metabolism Weakness 780.79 Resolved [...] cyst, scalp 706.2 Resolved Kylie Yokum [employer] Sebaceous cyst Cervical lymphadenopathy, anterior, left 785.6 Resolv ed Kylie Yokum [employer] Enlargement of lymph nodes Need for prophylactic vaccination and inoculation against in fluenza V04.81 Resolved Adam Yates MD Need for prophylactic vaccination and inoculation against influenza Preventive health care V70.0 Resolved Kylie Escalonaku m [employer] Routine general medical examination at a health care facility Thyroid nodule, left 241.0 Active Kylie Yokum A PRN Nontoxic uninodular goiter Screening mammogram V76.12 Resolved Kylie Yokum A PRN Other screening mammogram Mandy 706.2 Resolved Kylie Yokum [employer] Sebaceous cyst Colon cancer, ascending 153.6 Resolved Kylie Yok um [employer] Malignant neoplasm of ascending colon Foot pain, left 729.5 Resolved Kylie Yokum [employer] Pain in limb Splinter 919.6 Resolved Kylie Yokum [employer] Superficial foreign body (splinter) of other, multiple, and unspecified sites, without major open wound and without mention of infection Rash 782.1 Resolved Kylie Yokum [employer] Rash and other nonspecific skin eruption Cyst 706.2 Resolved Kylie Yokum [employer] Sebaceous cyst Body Mass Index 23.0-23.9 Adult Active Kylie Yokum [employer] Body Mass Index between 19-24, adult Unspecified fall, initial encounter E888.9 Inactive Kylie Yanet REYES Unspecified fall Eye pain, left 379.91 Inactive Kylie Yanet REYES Pain in or around eye Pharyngitis, acute [...] LOWER QUADRANT ICD-789.03 Inactive Kina Joshua [employer] ADENOCARCINOMA, COLON, 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 Dick Yates MD ABDOMINAL PAIN, GENERALIZED ICD-789.07 Inactive Hope Benavidez MD PhD FEVER UNSPECIFIED ICD-780.60 Inactive Hope cohn MD PhD UNSPECIFIED VENOUS INSUFFICIENCY ICD-459.81 [place] ctive Adam Yates MD ADENOCARCINOMA, 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 Inac tive Hope Benavidez MD PhD Hyperkalemia ICD-276.7 Inactive Hope Benavidez MD PhD GERD ICD-530.81 Inactive Kylie Holt [employer] 2015 Health maintenance exam ICD-V70.0 Bam Yates MD Anemia ICD-285.9 Inactive Kylie Yokum [employer] 07/24 Hypomagnesemia ICD-275.2 Inactive Kylie Yokum [employer] Weakness ICD-780.79 Inactive Hope Benavidez MD P [...] scalp ICD-706.2 Inactive Tracy hi Yokum [employer] Cervical lymphadenopathy, anterior, left ICD-785.6 Inactive Kylie Yokum [employer] Need for prophylactic vaccination and inoculation against in fluenza ICD-V04.81 Inactive Adam Yates MD Preventive health care ICD-V70.0 Inactive Ka thi Yokum [employer] Screening mammogram ICD-V76.12 Inactive Kylie Yokum [employer] Mandy ICD-706.2 Inactive Kylie Holt [employer] 07/20 Colon cancer, ascending ICD-153.6 Inactive K umang Holt [employer] Foot pain, left ICD-729.5 Inactive Kylie Holt [employer] Splinter ICD-919.6 Inactive Kylie Holt [employer] 2017 Rash ICD-782.1 Inactive Kylie Holt [employer] 07/25 Cyst ICD-706.2 Inactive Kylie Holt [employer] 08/11 Unspecified fall, initial encounter ICD-E888.9 Inactive Kylie Holt [employer] Eye pain, left ICD-379.91 Inactive Kylie Holt [employer] Medication List Medication Instructions Start Date Stop Date Generic Name NDC Status Provider Patient Instruction VOLTAREN 1 % TRANSDERMAL GEL apply 2 grams q 6-8 hour to left arm as needed for pain DICLOFENAC SODIUM 78089896534 Active Kylie Holt APR N Active IMODIUM A-D 2 MG ORAL TABLET 1 tablet twice a day LOPERAMIDE HCL 33218463770 Active Kylie Holt APRN Active COQ10 100 MG ORAL CAPSULE 1 daily COENZYME Q10 713371 94080 Active LETY Nation Active VITAMIN D3 2000 UNIT ORAL CAPSULE [place]ale[place]-One daily CHOLECALCIFEROL 77558685129 Active Kylie Holt APRN Active PROBIOTIC DAILY ORAL CAPSULE Take one daily PROBIO TIC PRODUCT 08092849003 Active Kylie Holt APRN Active IRON 325 (65 Fe) MG ORAL TABLET 1 every other day FERROUS SULFATE 78439731986 No Longer Active Kylie Holt APRN Active FLORANEX ORAL PACKET 1 pack three times daily, for bowel health LACTOBACILLUS 50977900679 No Longer Active Kylie Yokum [employer] Active LOMOTIL 2.5-0.025 MG ORAL TABLET 1 tab by mouth prn 20 23/10/23 DIPHENOXYLATE-ATROPINE 99191327532 No Longer Active Kylie Yokum [employer] Active MAGNESIUM GLUCONATE 250 MG ORAL TABLET 1 tab tid 20 23/10/23 MAGNESIUM GLUCONATE 33319608878 No Longer Active Kylie Yokum [employer] Active CYANOCOBALAMIN 1000 MCG/ML INJECTION SOLUTION 1 injection ev ruben 2 weeks CYANOCOBALAMIN 45974619381 No Longer Active Kylie Yok um [employer] Active ATENOLOL 25 MG ORAL TABLET 1/2 pill by mouth daily, fo r headaches, blood pressure ATENOLOL 80007792809 Active Kylie Yokum [employer] Active PROPRANOLOL HCL 80 MG ORAL TABLET 1 tab tue. and thur. PROPRANOLOL HCL 86298940322 No Longer Active Hope Benavidez MD PhD A ctive VITAMIN D3 4000 IU 1 tab 3 times daily VITAMIN D3 4000 IU No Longer Active Hope Benavidez MD PhD Active BACTRIM DS 800-160 MG ORAL TABLET 1 pill by mouth twice claudio y, for UTI SULFAMETHOXAZOLE-TRIMETHOPRIM 39277668828 No Longer Active Hope Benavidez MD PhD Active PROLIA 60 MG/ML SUBCUTANEOUS SOLUTION 1 shot every 6 months for osteoprosis DENOSUMAB 50968309284 Active Hope Benavidez MD PhD Active CALCIUM + D + K 750-500-40 MG-UNT-MCG ORAL TABLET 1 tab by m outh twice daily CALCIUM-VITAMIN D-VITAMIN K 20203982067 Active Hope valdez MD PhD Active DAILY VALUE MULTIVITAMIN ORAL TABLET 1 tab by mouth twice daily 201 05/16/14 MULTIPLE VITAMIN 71435751126 Active Hope Benavidez MD PhD Acti ve FISH OIL 306 MG CAPS 1 tab by mouth three times daily OMEGA-3 FATTY ACIDS 76684565387 Active Hope Benavidez MD PhD Active LUTEIN 10 MG ORAL TABLET 1 tab daily LUTEIN 83162287 408 Active Hope Benavidez MD PhD Active TRIAMTERENE-HCTZ 37.5-25 MG ORAL TABLET 1 tab by mouth daily 10/22 TRIAMTERENE-HCTZ 33124468234 Active Kylie Holt [employer] Active CYCLOBENZAPRINE HCL 10 MG ORAL TABLET 1 tablet by [facility] three times daily as needed for headaches CYCLOBENZAPRINE HCL 74651436651 No Longer Active Adam Yates MD Active OMEPRAZOLE 20 MG ORAL CAPSULE DELAYED RELEASE 1 tablet by mo [facility] daily for GERD OMEPRAZOLE 35727637309 No Longer Active Adam Yates MD Active ZOFRAN 8 MG ORAL TABLET 1 tab by mouth every 12 hours prn 4 ONDANSETRON HCL 55329411330 No Longer Active Adam Yates MD Active PHENADOZ 25 MG RECTAL SUPPOSITORY 1 every 4 hrs. PRN 2 PROMETHAZINE HCL 10463028603 No Longer Active Adam Yates MD A ctive POTASSIUM CHLORIDE 20 MEQ ORAL PACKET by mouth twice a day prn 2 POTASSIUM CHLORIDE 51177609474 No Longer Active Adam Carpenter MD Active PROMETHAZINE HCL 25 MG ORAL TABLET 1 Q. 4 hr. PRN PROMETHAZINE HCL 01489609347 No Longer Active Adam Yates MD Active INNOPRAN XL 120 MG ORAL CAPSULE EXTENDED RELEASE 24 HO UR Take one by mouth daily PROPRANOLOL HCL SR BEADS 39216233225 No Longer Active Adam Yates MD Active FLAGYL 500 MG ORAL TABLET 1 pill by mouth three times daily, for diarrhea METRONIDAZOLE 85327166612 No Longer Active Hope landers MD PhD Active DYAZIDE 37.5-25 MG ORAL CAPSULE 1 qd TRIA MTERENE-HCTZ 18407379692 No Longer Active Hope Benavidez MD PhD Active PROZAC 20 MG ORAL CAPSULE 1 q d FLUOXETINE HCL 53341842943 No Longer Active Hope Benavidez MD PhD Active SIMVASTATIN 40 MG ORAL TABLET 1 qd SIMVAS TATIN 09144924537 No Longer Active Adam Yates MD Active MELOXICAM 15 MG ORAL TABLET 1 qd MELOXICAM 13280126570 No Longer Active Adam Yates MD Active EXCEDRIN EXTRA STRENGTH 250-250-65 MG ORAL TABLET 1-2 q6h DE N headache AWMYTLA-HUKMAWIPJCIAI-RTOSHZCS 15720093939 Active Hope Benavidez MD PhD Active FLAGYL 500 MG ORAL TABLET 1 qid METRONIDAZOL E 58410847909 No Longer Active Adam Yates MD Active LEVAQUIN 750 MG ORAL TABLET 1 qd LEVOFLOXAC IN 15905737460 No Longer Active Adam Yates MD Active ADULT ASPIRIN LOW STRENGTH 81 MG ORAL TABLET DISINTEGRATING 1 qd ASPIRIN 08399824230 Active Hope Benavidez MD PhD Active LEVAQUIN 750 MG ORAL TABLET 1 qd LEVAQUIN 750 MG ORAL TABLET 484928 LEVOFLOXACIN Inactive FLAGYL 500 MG ORAL TABLET 1 qid FLAGYL 500 MG ORAL TABLET 809163 METRONIDAZOLE Inactive MELOXICAM 15 MG ORAL TABLET 1 qd MELOXICAM 15 MG ORAL TABLET 009981 MELOXICAM Inactive SIMVASTATIN 40 MG ORAL TABLET 1 qd SIMVASTATIN 40 MG ORAL TABLET 855617 SIMVASTATIN Inactive PROZAC 20 MG ORAL CAPSULE 1 q d PROZAC 20 MG ORAL CAPSULE 224319 FLUOXETINE HCL Inactive DYAZIDE 37.5-25 MG ORAL CAPSULE 1 qd 5 DYAZIDE 37.5-25 MG ORAL CAPSULE 357139 TRIAMTERENE-HCTZ Inactive INNOPRAN XL 120 MG ORAL CAPSULE EXTENDED RELEASE 24 HO UR Take one by mouth daily INNOPRAN XL 120 MG ORAL CAPSULE EXTENDED RELEASE 24 HOUR PROPRANOLOL HCL SR BEADS Inactive PROMETHAZINE HCL 25 MG ORAL TABLET 1 Q. 4 hr. PRN 2013 PROMETHAZINE HCL 25 MG ORAL TABLET 833280 PROMETHAZINE HCL Inactive POTASSIUM CHLORIDE 20 MEQ ORAL PACKET by mouth twice a day prn 2 POTASSIUM CHLORIDE 20 MEQ ORAL PACKET 4511450 POTASSIUM CHLORIDE Inactive PHENADOZ 25 MG RECTAL SUPPOSITORY 1 every 4 hrs. PRN 2 PHENADOZ 25 MG RECTAL SUPPOSITORY 763953 PROMETHAZINE HCL Inactive ZOFRAN 8 MG ORAL TABLET 1 tab by mouth every 12 hours prn 4 ZOFRAN 8 MG ORAL TABLET 719829 ONDANSETRON HCL Inactive OMEPRAZOLE 20 MG ORAL CAPSULE DELAYED RELEASE 1 tablet by mo ut daily for GERD OMEPRAZOLE 20 MG ORAL CAPSULE DELAYED RELEASE 19 8051 OMEPRAZOLE Inactive CYCLOBENZAPRINE HCL 10 MG ORAL TABLET 1 tablet by mout three times daily as needed for headaches CYCLOBENZAPRINE HCL 10 MG ORAL TABLET 539557 CYCLOBENZAPRINE HCL Inactive VITAMIN D3 4000 IU 1 tab 3 times daily VITAMIN D3 4000 IU Inactive PROPRANOLOL HCL 80 MG ORAL TABLET 1 tab tue. and thur. PROPRANOLOL HCL 80 MG ORAL TABLET 075953 PROPRANOLOL HCL Inacti ve CYANOCOBALAMIN 1000 MCG/ML INJECTION SOLUTION 1 injection ev urben 2 weeks CYANOCOBALAMIN 1000 MCG/ML INJECTION SOLUTION 30 9594 CYANOCOBALAMIN Inactive MAGNESIUM GLUCONATE 250 MG ORAL TABLET 1 tab tid 23/10/23 MAGNESIUM GLUCONATE 250 MG ORAL TABLET 769240 MAGNESIUM GLUCONATE Inactive LOMOTIL 2.5-0.025 MG ORAL TABLET 1 tab by mouth prn 20 23/10/23 LOMOTIL 2.5-0.025 MG ORAL TABLET 1757898 DIPHENOXYLATE-ATROPINE Inac tive FLORANEX ORAL PACKET 1 pack three times daily, for bowel health FLORANEX ORAL PACKET 44754233577 LACTOBACILLUS Inactive IRON 325 (65 Fe) MG ORAL TABLET 1 every other day 2015 IRON 325 (65 Fe) MG ORAL TABLET 329674 FERROUS SULFATE Inactive FLAGYL 500 MG ORAL TABLET 1 pill by mouth three times daily, for diarrhea FLAGYL 500 MG ORAL TABLET 425454 METRONIDAZOLE I nactive BACTRIM DS 800-160 MG ORAL TABLET 1 pill by mouth twice claudio y, for UTI BACTRIM DS 800-160 MG ORAL TABLET 989972 SULFAMETHOXAZOLE-TRIMETHOPRIM Inactive Advance Directives Directive Description Start [...] ... - Chemistry sodium, serum 141 mmol/L 001-931 7322/01/10 potassium, serum 3.7 mmol/L 3.5-5.2 chloride, serum 101 mmol/L 98-107 carbon dioxide, venous blood 31.0 mmol/L 21.0-32 .0 blood glucose 96 mg/dL 65-95 calcium, serum 9.5 mg/dL 8.5-10.1 urea nitrogen, blood 21 mg/dL 7-18 creatinine, serum 1.40 mg/dL 0.60-1.30 Estimated Glomerular Filtration Rate (calc) 39 (?) mL/min/1.73m2 = OR > 60 mL/min cholesterol, serum 211 mg/dL 158-973 6065/01/10 triglyceride, serum, fasting 77 mg/dL 30-200 [...] - Chem istry sodium, serum 142 mmol/L 750-405 8601/04/19 carbon dioxide, venous blood 30.2 mmol/L 21.0-32 [...] - Chelle radha sodium, serum 142 mmol/L 231-052 1189/11/02 potassium, serum 3.4 mmol/L 3.5-5.2 chloride, serum [...] mg/dL Encounters Code Encounter Date Provider Facility CPT-22680 [id number] Vst-Est Level IV 19:48:30 DIAZO TECHNICIAN Tracy Holt [facility] [place] CPT-73720 [id number] Vst-Est Level III 14:29:19 CDT Fiorella Holt [facility] [place] CPT-83046 Level 2 Est. Patient 14:58:26 CDT Kylie Lund [facility] [place] CPT-53100 Level 3 Est. Patient 08:15:24 DIAZO TECHNICIAN Kylie Lund [facility] [place] CPT-11280 Level 2 Est. Patient 14:27:16 DIAZO TECHNICIAN Kylie Lund [facility] [place] CPT-55249 Level 3 Est. Patient 17:54:48 CDT Kylie boyd [facility] CPT-65792 Level 3 Est. Patient 16:26:30 CDT Kina blackmon [facility] CPT-33044 Level 3 New Patient 16:22:01 DIAZO TECHNICIAN Adam Yates MD [facility] CPT-89655 Level 4 Est. Patient 17:00:48 CDT Kylie Lund [facility] CPT-42788 Level 3 Est. Patient 13:15:54 CDT Kylie Lund [facility] CPT-33219 Level 3 Est. Patient 09:10:11 CDT Kylie Lund [facility] CPT-50345 Level 4 Est. Patient 12:08:30 DIAZO TECHNICIAN Hope cohn MD [facility] CPT-48256 Level 4 Est. Patient 19:08:42 DIAZO TECHNICIAN Hope cohn MD [facility] CPT-42827 Level 4 Est. Patient 20:04:51 CDT Hope cohn MD [facility] CPT-12847 Level 3 New Patient 01:46:11 DIAZO TECHNICIAN Hope landers MD [facility] Procedures Code Procedure Name Date Entry Date Standard Desc ription CPT-19396 Sono Soft Tissue Head and Neck - XRAY US E ONLY 11:56:06 DIAZO TECHNICIAN CPT-53290 Abx/Therapy Injection 09:40:08 DIAZO TECHNICIAN CPT-J0897 Prolia 60 mg 09:40:08 DIAZO TECHNICIAN CPT-10934 First Vx - Ix admin for Medicare patients 02/08 10:02:45 CDT CPT-80849 Fluzone Quadrivalent Intramuscular Suspe nsion 0.5 ML 10:02:45 CDT CPT-85907 Magnesium - LAB USE ONLY 09:41:00 CDT 12/09 CPT-85273 Renal Panel - LAB USE ONLY 09:41:00 CDT 201 09/17/01 CPT-60312 Venipuncture Draw Fee 09:41:00 CDT CPT-45237 Calcium - LAB USE ONLY 17:25:11 CDT CPT-J0897 Prolia 60 mg 15:10:59 CDT CPT-05788 Abx/Therapy Injection 15:10:59 CDT CPT-G0439 Subsequent Annual Wellness Exam 14:29:19 CDT CPT-65275 Venipuncture Draw Fee 10:59:04 CDT CPT-38479 CMP - LAB USE ONLY 10:59:04 CDT CPT-69783 CBC with Diff - LAB USE ONLY 10:59:03 CDT 2 CPT-J0897 Prolia 60 mg 15:46:54 DIAZO TECHNICIAN CPT-27007 Abx/Therapy Injection 15:46:54 DIAZO TECHNICIAN CPT-45445 Microalbumin - LAB USE ONLY 09:41:32 DIAZO TECHNICIAN 20 23/01/15 CPT-46590 Free T4 - LAB USE ONLY 09:41:32 DIAZO TECHNICIAN CPT-57212 TSH - LAB USE ONLY 09:41:32 DIAZO TECHNICIAN CPT-43563 BMP - LAB USE ONLY 09:41:32 DIAZO TECHNICIAN CPT-13650 Venipuncture Draw Fee 09:41:32 DIAZO TECHNICIAN CPT-05567 First Vx - Ix admin for Medicare patients 11:19:30 CDT CPT-93485 Fluzone High-Dose Intramuscular Suspension 12/07 11:19:30 CDT CPT-J0897 Prolia 60 mg 14:55:42 CDT CPT-50903 Abx/Therapy Injection 14:55:42 CDT CPT-83705 Bone Density - XRAY USE ONLY 10:27:12 CDT 2 CPT-G0439 MC Subsequent Annual Wellness Exam 17:54:53 CDT CPT-67053 Foot, left, comp min 3V - XRAY USE ONLY 12:22:49 CDT CPT-G0009 Administration of Pneumococcal Vaccine 3 12:18:00 CDT CPT-39013 Pneumovax 23 Injection Injectable 25 MCG /0.5ML 12:18:00 CDT CPT-J0897 Prolia 60 mg 14:14:16 DIAZO TECHNICIAN CPT-85374 Abx/Therapy Injection 14:14:15 DIAZO TECHNICIAN CPT-20954 Lipid - LAB USE ONLY 10:01:52 DIAZO TECHNICIAN 2 CPT-65353 Calcium - LAB USE ONLY 10:01:51 DIAZO TECHNICIAN CPT-13892 Venipuncture Draw Fee 10:01:51 DIAZO TECHNICIAN CPT-LR Lesion Removal 16:22:01 DIAZO TECHNICIAN CPT-90331 TSH - LAB USE ONLY 14:26:02 CDT CPT-23430 CMP - LAB USE ONLY 14:26:01 CDT CPT-52956 CBC with Diff - LAB USE ONLY 14:26:01 CDT 2 CPT-83549 Venipuncture Draw Fee 14:26:01 CDT CPT-11808 First Vx - Ix admin for Medicare patients 13:27:08 CDT CPT-48393 Fluzone High-Dose Intramuscular Suspension 11/26 13:27:08 CDT CPT-G0438 Initial Annual Wellness Exam 14:19:57 CD T CPT-G0009 Administration of Pneumococcal Vaccine 9 11:36:25 CDT CPT-19414 Prevnar 13 Intramuscular Suspension 1 1:36:25 CDT CPT-90936 Prevnar 13 Intramuscular Suspension 1 0:40:58 CDT CPT-J0897 Prolia 60 mg 10:37:16 CDT CPT-34169 Abx/Therapy Injection 10:37:16 CDT CPT-J0897 Prolia 60 mg 16:09:34 DIAZO TECHNICIAN CPT-J0897 Prolia 60 mg 11:10:35 DIAZO TECHNICIAN CPT-28282 Abx/Therapy Injection 11:10:35 DIAZO TECHNICIAN CPT-000 Give Appropriate Flu Vaccine 17:01:15 DIAZO TECHNICIAN 2 CPT-93987 Fluzone High Dose (65+) 15:03:08 DIAZO TECHNICIAN 02/15 CPT-83210 Immunization Single Admin 15:03:08 DIAZO TECHNICIAN 2014 CPT-OV Office Visit 15:58:06 CDT CPT-J0897 Prolia 60 mg 08:45:38 CDT CPT-75498 Abx/Therapy Injection 08:45:38 CDT CPT-J3420 Vitamin B12 1000mcg (Cyanocobalamin) 09:26:20 DIAZO TECHNICIAN CPT-27526 Abx/Therapy Injection 09:26:20 DIAZO TECHNICIAN CPT-J3420 Vitamin B12 1000mcg (Cyanocobalamin) 09:44:40 DIAZO TECHNICIAN CPT-09815 Abx/Therapy Injection 09:44:40 DIAZO TECHNICIAN CPT-J3420 Vitamin B12 1000mcg (Cyanocobalamin) 09:15:54 DIAZO TECHNICIAN CPT-92392 Abx/Therapy Injection 09:15:54 DIAZO TECHNICIAN CPT-J3420 Vitamin B12 1000mcg (Cyanocobalamin) 09:46:44 DIAZO TECHNICIAN CPT-64268 Abx/Therapy Injection 09:46:44 DIAZO TECHNICIAN CPT-J3420 Vitamin B12 1000mcg (Cyanocobalamin) 09:47:34 DIAZO TECHNICIAN CPT-41361 Abx/Therapy Injection 09:47:34 DIAZO TECHNICIAN CPT-J3420 Vitamin B12 1000mcg (Cyanocobalamin) 14:35:50 DIAZO TECHNICIAN CPT-J3420 Vitamin B12 1000mcg (Cyanocobalamin) 09:25:05 DIAZO TECHNICIAN CPT-24601 Abx/Therapy Injection 09:25:05 DIAZO TECHNICIAN CPT-G0008 Administration of Influenza Virus Vaccine 13:36:47 CDT CPT-66952 Fluzone High-Dose Intramuscular Suspension 11/15 13:36:47 CDT CPT-J0897 Prolia 60 mg 08:50:41 CDT CPT-80695 Abx/Therapy Injection 08:50:41 CDT CPT-05553 Bone Density 12:06:12 CDT CPT-84368 Bone Density 08:54:40 CDT CPT-OV Office Visit 15:37:02 CDT CPT-86363 Postop F/U Visit 15:47:49 CDT CPT-19847 Postop F/U Visit 15:21:02 CDT CPT-TCMH Transitional Care Mgmt-High 07:52:27 CDT 20 20/06/01 CPT-07396 Venipuncture Draw Fee 13:51:18 CDT CPT-44812 Venipuncture Draw Fee 10:14:55 DIAZO TECHNICIAN CPT-57504 Venipuncture Draw Fee 13:39:45 DIAZO TECHNICIAN CPT-OV Office Visit 15:11:22 DIAZO TECHNICIAN CPT-33855 Venipuncture Draw Fee 09:20:49 DIAZO TECHNICIAN CPT-02102 Venipuncture Draw Fee 16:52:15 DIAZO TECHNICIAN CPT-28185 Venipuncture Draw Fee 10:37:24 DIAZO TECHNICIAN CPT-63669 Venipuncture Draw Fee 08:21:21 DIAZO TECHNICIAN CPT-52032 Venipuncture Draw Fee 08:30:20 DIAZO TECHNICIAN CPT-98851 Venipuncture Draw Fee 14:53:21 DIAZO TECHNICIAN CPT-73669 Venipuncture Draw Fee 09:40:56 DIAZO TECHNICIAN CPT-06141 Venipuncture Draw Fee 10:30:47 DIAZO TECHNICIAN CPT-16368 Venipuncture Draw Fee 10:46:17 DIAZO TECHNICIAN CPT-80848 Venipuncture Draw Fee 11:12:45 DIAZO TECHNICIAN CPT-81121 Venipuncture Draw Fee 09:53:33 DIAZO TECHNICIAN CPT-82089 Venipuncture Draw Fee 11:53:51 DIAZO TECHNICIAN CPT-72832 Venipuncture Draw Fee 10:33:50 DIAZO TECHNICIAN CPT-48291 Venipuncture Draw Fee 10:05:01 DIAZO TECHNICIAN CPT-17272 Venipuncture Draw Fee 14:32:52 DIAZO TECHNICIAN CPT-96421 Venipuncture Draw Fee 09:46:13 DIAZO TECHNICIAN CPT-39762 Venipuncture Draw Fee 11:34:27 DIAZO TECHNICIAN CPT-08972 Venipuncture Draw Fee 13:17:16 DIAZO TECHNICIAN CPT-42465 Venipuncture Draw Fee 12:05:39 CDT CPT-15258 Venipuncture Draw Fee 12:49:12 CDT CPT-60302 Venipuncture Draw Fee 12:37:18 CDT CPT-84322 Venipuncture Draw Fee 10:57:11 CDT CPT-91936 Venipuncture Draw Fee 13:47:40 CDT CPT-95142 Venipuncture Draw Fee 10:02:17 CDT CPT-21352 TB Tubersol 17:32:32 CDT CPT-OV Office Visit 16:21:53 CDT CPT-OV Office Visit 15:49:22 CDT CPT-OV Office Visit 17:16:31 CDT CPT-OV Office Visit 10:43:31 CDT
--- OUTSIDE RECORDS SUMMARY | 2019-02-09 12:01 | XMS REPORT | Clinical Summary ---
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 Active Adam Yates MD Personal history of malignant neoplasm of large intestine Hypomagnesemia 275.2 Resolved Kylie Yanet [employer] Disorders of magnesium metabolism Weakness 780.79 Resolved [...] Sebaceous cyst, scalp 706.2 Resolved Kylie Yokum [employer] Sebaceous cyst Cervical lymphadenopathy, anterior, left 785.6 Resolv ed Kylie Yokum [employer] Enlargement of lymph nodes Need for prophylactic vaccination and inoculation against in fluenza V04.81 Resolved Adam Yates MD Need for prophylactic vaccination and inoculation against influenza Preventive health care V70.0 Resolved Kylie Escalonaku m [employer] Routine general medical examination at a health care facility Thyroid nodule, left 241.0 Active Kylie Yokum A PRN Nontoxic uninodular goiter Screening mammogram V76.12 Resolved Kylie Yokum A PRN Other screening mammogram Mandy 706.2 Resolved Kylie Yokum [employer] Sebaceous cyst Colon cancer, ascending 153.6 Resolved Kylie Yok um [employer] Malignant neoplasm of ascending colon Foot pain, left 729.5 Resolved Kylie Yokum [employer] Pain in limb Splinter 919.6 Resolved Kyile Yokum [employer] Superficial foreign body (splinter) of other, multiple, and unspecified sites, without major open wound and without mention of infection Rash 782.1 Resolved Kylie Yokum [employer] Rash and other nonspecific skin eruption Cyst 706.2 Resolved Kylie Yokum [employer] Sebaceous cyst Body Mass Index 23.0-23.9 Adult Active Kylie Yokum [employer] Body Mass Index between 19-24, adult Unspecified [...] RIGHT LOWER QUADRANT ICD-789.03 Inactive Kina Joshua [employer] ADENOCARCINOMA, COLON, 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 Dick Yates MD ABDOMINAL PAIN, GENERALIZED ICD-789.07 Inactive Hope Benavidez MD PhD FEVER UNSPECIFIED ICD-780.60 Inactive Hope cohn MD PhD UNSPECIFIED VENOUS INSUFFICIENCY ICD-459.81 Andreas ctive Adam Yates MD ADENOCARCINOMA, 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 Inac tive Hope Benavidez MD PhD Hyperkalemia ICD-276.7 Inactive Hope Benavidez MD PhD GERD ICD-530.81 Inactive Kylie Holt [employer] 2015 Health maintenance exam ICD-V70.0 Inactive Adolfo Yates MD Anemia ICD-285.9 Inactive Kylie Yokum [employer] 07/24 Hypomagnesemia ICD-275.2 Inactive Kylie Yokum [employer] Weakness ICD-780.79 Inactive Hope Benavidez MD P [...] cyst, scalp ICD-706.2 Inactive Tracy hi Yokum [employer] Cervical lymphadenopathy, anterior, left ICD-785.6 Inactive Kylie Yokum [employer] Need for prophylactic vaccination and inoculation against in fluenza ICD-V04.81 Inactive Adam Yates MD Preventive health care ICD-V70.0 Inactive Ka thi Yokum [employer] Screening mammogram ICD-V76.12 Inactive Kylie Yokum [employer] Mandy ICD-706.2 Inactive Kylie Holt [employer] 07/20 Colon cancer, ascending ICD-153.6 Inactive K umang Holt [employer] Foot pain, left ICD-729.5 Inactive Kylie Holt [employer] Splinter ICD-919.6 Inactive Kylie Holt [employer] 2017 Rash ICD-782.1 Inactive Kylie Lundum [employer] 07/25 Cyst ICD-706.2 Inactive Kylie Holt [employer] 08/11 Unspecified fall, initial encounter ICD-E888.9 Inactive Kylie Holt [employer] Eye pain, left ICD-379.91 Inactive Kylie Holt [employer] Medication List Medication Instructions Start Date Stop Date Generic Name NDC Status Provider Patient Instruction VOLTAREN 1 % TRANSDERMAL GEL apply 2 grams q 6-8 hour to left arm as needed for pain DICLOFENAC SODIUM 07612308268 Active Kylie Holt APR N Active IMODIUM A-D 2 MG ORAL TABLET 1 tablet twice a day LOPERAMIDE HCL 41218418841 Active Kylie Holt APRN Active COQ10 100 MG ORAL CAPSULE 1 daily COENZYME Q10 379825 64441 Active LETY Nation Active VITAMIN D3 2000 UNIT ORAL CAPSULE Melaleuca-One daily CHOLECALCIFEROL 55681601423 Active Kylie Holt APRN Active PROBIOTIC DAILY ORAL CAPSULE Take one daily PROBIO TIC PRODUCT 11437750784 Active Kylie Holt APRN Active IRON 325 (65 Fe) MG ORAL TABLET 1 every other day FERROUS SULFATE 73976269107 No Longer Active Kylie Holt APRN Active FLORANEX ORAL PACKET 1 pack three times daily, for bowel health LACTOBACILLUS 27246026009 No Longer Active Kylie Yokum [employer] Active LOMOTIL 2.5-0.025 MG ORAL TABLET 1 tab by mouth prn 20 23/10/23 DIPHENOXYLATE-ATROPINE 46647014989 No Longer Active Kylie Yokum [employer] Active MAGNESIUM GLUCONATE 250 MG ORAL TABLET 1 tab tid 20 23/10/23 MAGNESIUM GLUCONATE 07212278176 No Longer Active Kylie Yokum [employer] Active CYANOCOBALAMIN 1000 MCG/ML INJECTION SOLUTION 1 injection ev ruben 2 weeks CYANOCOBALAMIN 55335664147 No Longer Active Kylie Yok um [employer] Active ATENOLOL 25 MG ORAL TABLET 1/2 pill by mouth daily, fo r headaches, blood pressure ATENOLOL 52539313276 Active Kylie Yokum [employer] Active PROPRANOLOL HCL 80 MG ORAL TABLET 1 tab tue. and thur. PROPRANOLOL HCL 02781801787 No Longer Active Hope Benavidez MD PhD A ctive VITAMIN D3 4000 IU 1 tab 3 times daily VITAMIN D3 4000 IU No Longer Active Hope Benavidez MD PhD Active BACTRIM DS 800-160 MG ORAL TABLET 1 pill by mouth twice claudio y, for UTI SULFAMETHOXAZOLE-TRIMETHOPRIM 21521011182 No Longer Active Hope Benavidez MD PhD Active PROLIA 60 MG/ML SUBCUTANEOUS SOLUTION 1 shot every 6 months for osteoprosis DENOSUMAB 41394945503 Active Hope Benavidez MD PhD Active CALCIUM + D + K 750-500-40 MG-UNT-MCG ORAL TABLET 1 tab by m out twice daily CALCIUM-VITAMIN D-VITAMIN K 33873374134 Active Hope valdez MD PhD Active DAILY VALUE MULTIVITAMIN ORAL TABLET 1 tab by mouth twice daily 201 05/16/14 MULTIPLE VITAMIN 19151858506 Active Hope Benavidez MD PhD Acti ve FISH OIL 306 MG CAPS 1 tab by mouth three times daily OMEGA-3 FATTY ACIDS 04351749226 Active Hope Benavidez MD PhD Active LUTEIN 10 MG ORAL TABLET 1 tab daily LUTEIN 74245732 408 Active Hope Benavidez MD PhD Active TRIAMTERENE-HCTZ 37.5-25 MG ORAL TABLET 1 tab by mouth daily 10/22 TRIAMTERENE-HCTZ 99474911368 Active Kylie Holt [employer] Active CYCLOBENZAPRINE HCL 10 MG ORAL TABLET 1 [facility] times daily as needed for headaches CYCLOBENZAPRINE HCL 11153382956 No Longer Active Adam Yates MD Active OMEPRAZOLE 20 MG ORAL CAPSULE DELAYED RELEASE 1 tablet by [facility] daily for GERD OMEPRAZOLE 91120247492 No Longer Active Adam Yates MD Active ZOFRAN 8 MG ORAL TABLET 1 tab by mouth every 12 hours prn 4 ONDANSETRON HCL 56786937269 No Longer Active Adam Yates MD Active PHENADOZ 25 MG RECTAL SUPPOSITORY 1 every 4 hrs. PRN 2 PROMETHAZINE HCL 87684335634 No Longer Active Adam Yates MD A ctive POTASSIUM CHLORIDE 20 MEQ ORAL PACKET by mouth twice a day prn 2 POTASSIUM CHLORIDE 59463018428 No Longer Active Adam Carpenter MD Active PROMETHAZINE HCL 25 MG ORAL TABLET 1 Q. 4 hr. PRN PROMETHAZINE HCL 26362173181 No Longer Active Adam Yates MD Active INNOPRAN XL 120 MG ORAL CAPSULE EXTENDED RELEASE 24 HO UR Take one by mouth daily PROPRANOLOL HCL SR BEADS 04445527804 No Longer Active Adam Yates MD Active FLAGYL 500 MG ORAL TABLET 1 pill by mouth three times daily, for diarrhea METRONIDAZOLE 72039780041 No Longer Active Hope landers MD PhD Active DYAZIDE 37.5-25 MG ORAL CAPSULE 1 qd TRIA MTERENE-HCTZ 18507633585 No Longer Active Hope Benavidez MD PhD Active PROZAC 20 MG ORAL CAPSULE 1 q d FLUOXETINE HCL 97514106211 No Longer Active Hope Benavidez MD PhD Active SIMVASTATIN 40 MG ORAL TABLET 1 qd SIMVAS TATIN 91148724856 No Longer Active Adam Yates MD Active MELOXICAM 15 MG ORAL TABLET 1 qd MELOXICAM 41806961375 No Longer Active Adam Yates MD Active EXCEDRIN EXTRA STRENGTH 250-250-65 MG ORAL TABLET 1-2 q6h ID N headache [id number] 30283274941 Active Hope Benavidez MD PhD Active FLAGYL 500 MG ORAL TABLET 1 qid METRONIDAZOL E 37359330538 No Longer Active Adam Yates MD Active LEVAQUIN 750 MG ORAL TABLET 1 qd LEVOFLOXAC IN 28355734560 No Longer Active Adam Yates MD Active ADULT ASPIRIN LOW STRENGTH 81 MG ORAL TABLET DISINTEGRATING 1 qd ASPIRIN 14837492918 Active Hope Benavidez MD PhD Active LEVAQUIN 750 MG ORAL TABLET 1 qd LEVAQUIN 750 MG ORAL TABLET 046266 LEVOFLOXACIN Inactive FLAGYL 500 MG ORAL TABLET 1 qid FLAGYL 500 MG ORAL TABLET 132711 METRONIDAZOLE Inactive MELOXICAM 15 MG ORAL TABLET 1 qd MELOXICAM 15 MG ORAL TABLET 726400 MELOXICAM Inactive SIMVASTATIN 40 MG ORAL TABLET 1 qd SIMVASTATIN 40 MG ORAL TABLET 594890 SIMVASTATIN Inactive PROZAC 20 MG ORAL CAPSULE 1 q d PROZAC 20 MG ORAL CAPSULE 728794 FLUOXETINE HCL Inactive DYAZIDE 37.5-25 MG ORAL CAPSULE 1 qd 5 DYAZIDE 37.5-25 MG ORAL CAPSULE 785175 TRIAMTERENE-HCTZ Inactive INNOPRAN XL 120 MG ORAL CAPSULE EXTENDED RELEASE 24 HO UR Take one by mouth daily INNOPRAN XL 120 MG ORAL CAPSULE EXTENDED RELEASE 24 HOUR PROPRANOLOL HCL SR BEADS Inactive PROMETHAZINE HCL 25 MG ORAL TABLET 1 Q. 4 hr. PRN 2013 PROMETHAZINE HCL 25 MG ORAL TABLET 440739 PROMETHAZINE HCL Inactive POTASSIUM CHLORIDE 20 MEQ ORAL PACKET by mouth twice a day prn 2 POTASSIUM CHLORIDE 20 MEQ ORAL PACKET 1771586 POTASSIUM CHLORIDE Inactive PHENADOZ 25 MG RECTAL SUPPOSITORY 1 every 4 hrs. PRN 2 PHENADOZ 25 MG RECTAL SUPPOSITORY 342874 PROMETHAZINE HCL Inactive ZOFRAN 8 MG ORAL TABLET 1 tab by mouth every 12 hours prn 4 ZOFRAN 8 MG ORAL TABLET 913687 ONDANSETRON HCL Inactive OMEPRAZOLE 20 MG ORAL CAPSULE DELAYED RELEASE 1 tablet by mo [facility] daily for GERD OMEPRAZOLE 20 MG ORAL CAPSULE DELAYED RELEASE 19 8051 OMEPRAZOLE Inactive CYCLOBENZAPRINE HCL 10 MG ORAL TABLET 1 tablet by mout three times daily as needed for headaches CYCLOBENZAPRINE HCL 10 MG ORAL TABLET 350271 CYCLOBENZAPRINE HCL Inactive VITAMIN D3 4000 IU 1 tab 3 times daily VITAMIN D3 4000 IU Inactive PROPRANOLOL HCL 80 MG ORAL TABLET 1 tab tue. and thur. PROPRANOLOL HCL 80 MG ORAL TABLET 596394 PROPRANOLOL HCL Inacti ve CYANOCOBALAMIN 1000 MCG/ML INJECTION SOLUTION 1 injection ev ruben 2 weeks CYANOCOBALAMIN 1000 MCG/ML INJECTION SOLUTION 30 9594 CYANOCOBALAMIN Inactive MAGNESIUM GLUCONATE 250 MG ORAL TABLET 1 tab tid 23/10/23 MAGNESIUM GLUCONATE 250 MG ORAL TABLET 904049 MAGNESIUM GLUCONATE Inactive LOMOTIL 2.5-0.025 MG ORAL TABLET 1 tab by mouth prn 23/10/23 LOMOTIL 2.5-0.025 MG ORAL TABLET 3448665 DIPHENOXYLATE-ATROPINE Inac tive FLORANEX ORAL PACKET 1 pack three times daily, for bowel health FLORANEX ORAL PACKET 24064538629 LACTOBACILLUS Inactive IRON 325 (65 Fe) MG ORAL TABLET 1 every other day 2015 IRON 325 (65 Fe) MG ORAL TABLET 743162 FERROUS SULFATE Inactive FLAGYL 500 MG ORAL TABLET 1 pill by mouth three times daily, for diarrhea FLAGYL 500 MG ORAL TABLET 906728 METRONIDAZOLE I nactive BACTRIM DS 800-160 MG ORAL TABLET 1 pill by mouth twice claudio y, for UTI BACTRIM DS 800-160 MG ORAL TABLET 745912 SULFAMETHOXAZOLE-TRIMETHOPRIM Inactive Advance Directives Directive Description Start [...] ... - Chemistry sodium, serum 141 mmol/L 436-957 6908/01/10 potassium, serum 3.7 mmol/L 3.5-5.2 chloride, serum 101 mmol/L 98-107 carbon dioxide, venous blood 31.0 mmol/L 21.0-32 .0 blood glucose 96 mg/dL 65-95 calcium, serum 9.5 mg/dL 8.5-10.1 urea nitrogen, blood 21 mg/dL 7-18 creatinine, serum 1.40 mg/dL 0.60-1.30 Estimated Glomerular Filtration Rate (calc) 39 (?) mL/min/1.73m2 = OR > 60 mL/min cholesterol, serum 211 mg/dL 839-530 1606/01/10 triglyceride, serum, fasting 77 mg/dL 30-200 HDL [...] - Chem istry sodium, serum 142 mmol/L 218-097 3347/04/19 carbon dioxide, venous blood 30.2 mmol/L 21.0-32 [...] - Chelle radha sodium, serum 142 mmol/L 313-097 5032/11/02 potassium, serum 3.4 mmol/L 3.5-5.2 chloride, serum [...] mg/dL Encounters Code Encounter Date Provider Facility CPT-81463 [id number] Vst-Est Level IV 19:48:30 GO CART MECHANIC Tracy jalloh Yanet [facility] [place] [facility] [place] CPT-36139 [id number] Vst-Est Level III 14:29:19 CDT Fiorella enrico Yanet [facility] [place] [facility] [place] CPT-40424 Level 2 Est. Patient 14:58:26 CDT Kylie Lund [facility] [place] [facility] [place] CPT-89718 Level 3 Est. Patient 08:15:24 GO CART MECHANIC Kylie Lund [facility] [place] [facility] [place] CPT-79253 Level 2 Est. Patient 14:27:16 GO CART MECHANIC Kylie Lund [facility] [place] [facility] [place] CPT-30804 Level 3 Est. Patient 17:54:[address] [facility] CPT-29716 Level 3 Est. Patient 16:26:[address] [facility] [place] CPT-76731 Level 3 New Patient 16:22:01 GO CART MECHANIC Adam Yates MD [facility] CPT-08799 Level 4 Est. Patient 17:00:48 CDT Kylie Lund [facility] CPT-05083 Level 3 Est. Patient 13:15:54 CDT Kylie Lund [facility] [place] CPT-14537 Level 3 Est. Patient 09:10:11 CDT Kylie Lund [facility] [place] CPT-03182 Level 4 Est. Patient 12:08:30 GO CART MECHANIC Hope cohn MD [facility] CPT-94221 Level 4 Est. Patient 19:08:42 GO CART MECHANIC Hope cohn MD [facility] CPT-51106 Level 4 Est. Patient 20:04:51 CDT Hope cohn MD [facility] CPT-45588 Level 3 New Patient 01:46:11 GO CART MECHANIC Hope landers MD [facility] Procedures Code Procedure Name Date Entry Date Standard Desc ription CPT-77233 Sono Soft Tissue Head and Neck - XRAY US E ONLY 11:56:06 GO CART MECHANIC CPT-99205 Abx/Therapy Injection 09:40:08 GO CART MECHANIC CPT-J0897 Prolia 60 mg 09:40:08 GO CART MECHANIC CPT-37041 First Vx - Ix admin for Medicare patients 02/08 10:02:45 CDT CPT-67989 Fluzone Quadrivalent Intramuscular Suspe nsion 0.5 ML 10:02:45 CDT CPT-90862 Magnesium - LAB USE ONLY 09:41:00 CDT 12/09 CPT-63298 Renal Panel - LAB USE ONLY 09:41:00 CDT 201 09/17/01 CPT-55632 Venipuncture Draw Fee 09:41:00 CDT CPT-54891 Calcium - LAB USE ONLY 17:25:11 CDT CPT-J0897 Prolia 60 mg 15:10:59 CDT CPT-89621 Abx/Therapy Injection 15:10:59 CDT CPT-G0439 [facility] Annual Wellness Exam 14:29:19 CDT CPT-87593 Venipuncture Draw Fee 10:59:04 CDT CPT-68234 CMP - LAB USE ONLY 10:59:04 CDT CPT-20907 CBC with Diff - LAB USE ONLY 10:59:03 CDT 2 CPT-J0897 Prolia 60 mg 15:46:54 GO CART MECHANIC CPT-94445 Abx/Therapy Injection 15:46:54 GO CART MECHANIC CPT-42413 Microalbumin - LAB USE ONLY 09:41:32 GO CART MECHANIC 20 23/01/15 CPT-30471 Free T4 - LAB USE ONLY 09:41:32 GO CART MECHANIC CPT-38865 TSH - LAB USE ONLY 09:41:32 GO CART MECHANIC CPT-37505 BMP - LAB USE ONLY 09:41:32 GO CART MECHANIC CPT-00134 Venipuncture Draw Fee 09:41:32 GO CART MECHANIC CPT-68623 First Vx - Ix admin for Medicare patients 11:19:30 CDT CPT-29971 Fluzone High-Dose Intramuscular Suspension 12/07 11:19:30 CDT CPT-J0897 Prolia 60 mg 14:55:42 CDT CPT-61198 Abx/Therapy Injection 14:55:42 CDT CPT-52214 Bone Density - XRAY USE ONLY 10:27:12 CDT 2 CPT-G0439 [facility] Subsequent Annual Wellness Exam 17:54:53 CDT CPT-50859 Foot, left, comp min 3V - XRAY USE ONLY 12:22:49 CDT CPT-G0009 Administration of Pneumococcal Vaccine 3 12:18:00 CDT CPT-12987 Pneumovax 23 Injection Injectable 25 MCG /0.5ML 12:18:00 CDT CPT-J0897 Prolia 60 mg 14:14:16 GO CART MECHANIC CPT-24480 Abx/Therapy Injection 14:14:15 GO CART MECHANIC CPT-04123 Lipid - LAB USE ONLY 10:01:52 GO CART MECHANIC 2 CPT-92566 Calcium - LAB USE ONLY 10:01:51 GO CART MECHANIC CPT-11695 Venipuncture Draw Fee 10:01:51 GO CART MECHANIC CPT-LR Lesion Removal 16:22:01 GO CART MECHANIC CPT-75052 TSH - LAB USE ONLY 14:26:02 CDT CPT-03362 CMP - LAB USE ONLY 14:26:01 CDT CPT-35545 CBC with Diff - LAB USE ONLY 14:26:01 CDT 2 CPT-64884 Venipuncture Draw Fee 14:26:01 CDT CPT-34118 First Vx - Ix admin for Medicare patients 13:27:08 CDT CPT-92134 Fluzone High-Dose Intramuscular Suspension 11/26 13:27:08 CDT CPT-G0438 Initial Annual Wellness Exam 14:19:57 CD T CPT-G0009 Administration of Pneumococcal Vaccine 9 11:36:25 CDT CPT-04762 Prevnar 13 Intramuscular Suspension 1 1:36:25 CDT CPT-00972 Prevnar 13 Intramuscular Suspension 1 0:40:58 CDT CPT-J0897 Prolia 60 mg 10:37:16 CDT CPT-11301 Abx/Therapy Injection 10:37:16 CDT CPT-J0897 Prolia 60 mg 16:09:34 GO CART MECHANIC CPT-J0897 Prolia 60 mg 11:10:35 GO CART MECHANIC CPT-29184 Abx/Therapy Injection 11:10:35 GO CART MECHANIC CPT-000 Give Appropriate Flu Vaccine 17:01:15 GO CART MECHANIC 2 CPT-27513 Fluzone High Dose (65+) 15:03:08 GO CART MECHANIC 02/15 CPT-63276 Immunization Single Admin 15:03:08 GO CART MECHANIC 2014 CPT-OV Office Visit 15:58:06 CDT CPT-J0897 Prolia 60 mg 08:45:38 CDT CPT-17516 Abx/Therapy Injection 08:45:38 CDT CPT-J3420 Vitamin B12 1000mcg (Cyanocobalamin) 09:26:20 GO CART MECHANIC CPT-65820 Abx/Therapy Injection 09:26:20 GO CART MECHANIC CPT-J3420 Vitamin B12 1000mcg (Cyanocobalamin) 09:44:40 GO CART MECHANIC CPT-59850 Abx/Therapy Injection 09:44:40 GO CART MECHANIC CPT-J3420 Vitamin B12 1000mcg (Cyanocobalamin) 09:15:54 GO CART MECHANIC CPT-32368 Abx/Therapy Injection 09:15:54 GO CART MECHANIC CPT-J3420 Vitamin B12 1000mcg (Cyanocobalamin) 09:46:44 GO CART MECHANIC CPT-74441 Abx/Therapy Injection 09:46:44 GO CART MECHANIC CPT-J3420 Vitamin B12 1000mcg (Cyanocobalamin) 09:47:34 GO CART MECHANIC CPT-37071 Abx/Therapy Injection 09:47:34 GO CART MECHANIC CPT-J3420 Vitamin B12 1000mcg (Cyanocobalamin) 14:35:50 GO CART MECHANIC CPT-J3420 Vitamin B12 1000mcg (Cyanocobalamin) 09:25:05 GO CART MECHANIC CPT-04630 Abx/Therapy Injection 09:25:05 GO CART MECHANIC CPT-G0008 Administration of Influenza Virus Vaccine 13:36:47 CDT CPT-13416 Fluzone High-Dose Intramuscular Suspension 11/15 13:36:47 CDT CPT-J0897 Prolia 60 mg 08:50:41 CDT CPT-04717 Abx/Therapy Injection 08:50:41 CDT CPT-65810 Bone Density 12:06:12 CDT CPT-07359 Bone Density 08:54:40 CDT CPT-OV Office Visit 15:37:02 CDT CPT-65075 Postop F/U Visit 15:47:49 CDT CPT-72082 Postop F/U Visit 15:21:02 CDT CPT-TCMH Transitional Care Mgmt-High 07:52:27 CDT 20 20/06/01 CPT-39363 Venipuncture Draw Fee 13:51:18 CDT CPT-55381 Venipuncture Draw Fee 10:14:55 GO CART MECHANIC CPT-44624 Venipuncture Draw Fee 13:39:45 GO CART MECHANIC CPT-OV Office Visit 15:11:22 GO CART MECHANIC CPT-44616 Venipuncture Draw Fee 09:20:49 GO CART MECHANIC CPT-75720 Venipuncture Draw Fee 16:52:15 GO CART MECHANIC CPT-39419 Venipuncture Draw Fee 10:37:24 GO CART MECHANIC CPT-96162 Venipuncture Draw Fee 08:21:21 GO CART MECHANIC CPT-93647 Venipuncture Draw Fee 08:30:20 GO CART MECHANIC CPT-91845 Venipuncture Draw Fee 14:53:21 GO CART MECHANIC CPT-57974 Venipuncture Draw Fee 09:40:56 GO CART MECHANIC CPT-10135 Venipuncture Draw Fee 10:30:47 GO CART MECHANIC CPT-36181 Venipuncture Draw Fee 10:46:17 GO CART MECHANIC CPT-44840 Venipuncture Draw Fee 11:12:45 GO CART MECHANIC CPT-58789 Venipuncture Draw Fee 09:53:33 GO CART MECHANIC CPT-52776 Venipuncture Draw Fee 11:53:51 GO CART MECHANIC CPT-44409 Venipuncture Draw Fee 10:33:50 GO CART MECHANIC CPT-35856 Venipuncture Draw Fee 10:05:01 GO CART MECHANIC CPT-35164 Venipuncture Draw Fee 14:32:52 GO CART MECHANIC CPT-90676 Venipuncture Draw Fee 09:46:13 GO CART MECHANIC CPT-81968 Venipuncture Draw Fee 11:34:27 GO CART MECHANIC CPT-89870 Venipuncture Draw Fee 13:17:16 GO CART MECHANIC CPT-67492 Venipuncture Draw Fee 12:05:39 CDT CPT-07694 Venipuncture Draw Fee 12:49:12 CDT CPT-50163 Venipuncture Draw Fee 12:37:18 CDT CPT-35553 Venipuncture Draw Fee 10:57:11 CDT CPT-81780 Venipuncture Draw Fee 13:47:40 CDT CPT-14019 Venipuncture Draw Fee 10:02:17 CDT CPT-70521 TB Tubersol 17:32:32 CDT CPT-OV Office Visit 16:21:53 CDT CPT-OV Office Visit 15:49:22 CDT CPT-OV Office Visit 17:16:31 CDT CPT-OV Office Visit 10:43:31 CDT
--- OUTSIDE RECORDS SUMMARY | 2019-02-09 12:01 | XMS REPORT | Clinical Summary ---
Author Author Renaldo, Florecita Munoz Organization [facility] [email or web address] Address Unknown Phone Unavailable Allergies, Adverse Reactions, Alerts Allergy Name Reaction Description Start Date Severity Status Pr ovider NKDA Critical Active Kylie MEEK RN Conditions or Problems Problem Name Problem Code Onset Date Status Entry Date Provider Comment Standard Description Annotate HYPERLIPIDEMIA 272.4 Active iKna Joshua APRN Other and unspecified hyperlipidemia HYPERTENSION [...] PhD Hyperpotassemia GERD 530.81 Resolved Kylie Yokum VICE PRESIDENT OF TALENT MANAGEMENT Esophageal reflux Health maintenance exam V70.0 Resolved Adolfo Yates MD Routine general medical examination at a health care facility Anemia 285.9 Resolved Kylie Yanet VICE PRESIDENT OF TALENT MANAGEMENT Anemia, unspecified Personal history of malignant neoplasm of large intestine V10.05 Active Adam Yates MD Personal history of malignant neoplasm of large intestine Hypomagnesemia 275.2 Resolved Kylie Yanet VICE PRESIDENT OF TALENT MANAGEMENT Disorders of magnesium metabolism Weakness 780.79 Resolved [...] colon, unspecified FH Colon Cancer V16.0 Active Adma Delgado D Family history of malignant neoplasm [...] Sebaceous cyst, scalp 706.2 Resolved Kylie Yokum VICE PRESIDENT OF TALENT MANAGEMENT Sebaceous cyst Cervical lymphadenopathy, anterior, left 785.6 Resolv ed Kylie Yokum VICE PRESIDENT OF TALENT MANAGEMENT Enlargement of lymph nodes Need for prophylactic vaccination and inoculation against in fluenza V04.81 Resolved Adam Yates MD Need for prophylactic vaccination and inoculation against influenza Preventive health care V70.0 Resolved Kylie Escalonaku m VICE PRESIDENT OF TALENT MANAGEMENT Routine general medical examination at a health care facility Thyroid nodule, left 241.0 Active Kylie Yokum A PRN Nontoxic uninodular goiter Screening mammogram V76.12 Resolved Kylie Yokum A PRN Other screening mammogram Mandy 706.2 Resolved Kylie Yokum VICE PRESIDENT OF TALENT MANAGEMENT Sebaceous cyst Colon cancer, ascending 153.6 Resolved Kylie Yok um VICE PRESIDENT OF TALENT MANAGEMENT Malignant neoplasm of ascending colon Foot pain, left 729.5 Resolved Kylie Yokum VICE PRESIDENT OF TALENT MANAGEMENT Pain in limb Splinter 919.6 Resolved Kylie Yokum VICE PRESIDENT OF TALENT MANAGEMENT Superficial foreign body (splinter) of other, multiple, and unspecified sites, without major open wound and without mention of infection Rash 782.1 Resolved Kylie Yokum VICE PRESIDENT OF TALENT MANAGEMENT Rash and other nonspecific skin eruption Cyst 706.2 Resolved Kylie Yokum VICE PRESIDENT OF TALENT MANAGEMENT Sebaceous cyst Body Mass Index 23.0-23.9 Adult Active Kylie Yokum VICE PRESIDENT OF TALENT MANAGEMENT Body Mass Index between 19-24, adult Unspecified fall, initial encounter E888.9 Inactive Kylie Holt VICE PRESIDENT OF TALENT MANAGEMENT Unspecified fall Eye pain, left 379.91 Inactive Kylie Holt VICE PRESIDENT OF TALENT MANAGEMENT Pain in or around eye Pharyngitis, acute 074.0 Active Kylie Holt HEATHER N Herpangina Chronic kidney disease stage 2 585.2 Refinement 12/09 Rosemarie Gresham RN Chronic kidney disease, Stage II (mild) Chronic kidney disease, stage 2 (Mild) 585.2 Active Kylie Holt APRN Chronic kidney disease, Stage II (mild) Hypomagnesemia 275.2 Active Rosemarie Gresham RN Disorders of magnesium metabolism Hypokalemia 276.8 Active Rosemarie Gresham RN Hypopotassemia Enlarged thyroid 240.9 Active Citlaly Watkins RM A Goiter, unspecified ADENOCARCINOMA, COLON, 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 Dick Yates MD ABDOMINAL PAIN, RIGHT LOWER QUADRANT ICD-789.03 Inactive Kina Joshua VICE PRESIDENT OF TALENT MANAGEMENT UNSPECIFIED VENOUS INSUFFICIENCY ICD-459.81 Elda ctive Adam Yates MD ADENOCARCINOMA, 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 Inac tive Hope Benavidez MD PhD Hyperkalemia ICD-276.7 Inactive Hope Benavidez MD PhD GERD ICD-530.81 Inactive Kylie Yanet VICE PRESIDENT OF TALENT MANAGEMENT 2015 Health maintenance exam ICD-V70.0 Bam Yates MD Anemia ICD-285.9 Inactive Kylie Holt VICE PRESIDENT OF TALENT MANAGEMENT 07/24 ABDOMINAL PAIN, GENERALIZED ICD-789.07 Inactive Hope Benavidez MD PhD FEVER UNSPECIFIED ICD-780.60 Inactive Hope cohn MD PhD Hypomagnesemia ICD-275.2 Inactive Kylie Yokum VICE PRESIDENT OF TALENT MANAGEMENT Weakness ICD-780.79 Inactive Hope Benavidez MD P [...] lymphadenopathy, anterior, left ICD-785.6 Inactive Kylie Yokum VICE PRESIDENT OF TALENT MANAGEMENT Need for prophylactic vaccination and inoculation against in fluenza ICD-V04.81 Inactive Adam Yates MD Sebaceous cyst, scalp ICD-706.2 Inactive Tracy hi Yokum VICE PRESIDENT OF TALENT MANAGEMENT Preventive health care ICD-V70.0 Inactive Ka thi Yokum VICE PRESIDENT OF TALENT MANAGEMENT Mandy ICD-706.2 Inactive Kylie Yokum VICE PRESIDENT OF TALENT MANAGEMENT 07/20 Colon cancer, ascending ICD-153.6 Inactive K umang Holt VICE PRESIDENT OF TALENT MANAGEMENT Splinter ICD-919.6 Inactive Kylie Holt VICE PRESIDENT OF TALENT MANAGEMENT 2017 Rash ICD-782.1 Inactive Kylie Holt VICE PRESIDENT OF TALENT MANAGEMENT 07/25 Cyst ICD-706.2 Inactive Kylie Holt VICE PRESIDENT OF TALENT MANAGEMENT 08/11 Unspecified fall, initial encounter ICD-E888.9 Inactive Kylie Holt VICE PRESIDENT OF TALENT MANAGEMENT Eye pain, left ICD-379.91 Inactive Kylie Holt VICE PRESIDENT OF TALENT MANAGEMENT Screening mammogram ICD-V76.12 Inactive Kylie Holt VICE PRESIDENT OF TALENT MANAGEMENT Foot pain, left ICD-729.5 Inactive Kylie Holt VICE PRESIDENT OF TALENT MANAGEMENT Medication List Medication Instructions Start Date Stop Date Generic Name NDC Status Provider Patient Instruction VOLTAREN 1 % TRANSDERMAL GEL apply 2 grams q 6-8 hour to left arm as needed for pain DICLOFENAC SODIUM 04204076968 Active Kylie Holt APR N Active IMODIUM A-D 2 MG ORAL TABLET 1 tablet twice a day LOPERAMIDE HCL 43554740671 Active Kylie Holt APRN Active COQ10 100 MG ORAL CAPSULE 1 daily COENZYME Q10 686110 02278 Active LETY Nation Active VITAMIN D3 2000 UNIT ORAL CAPSULE Melaleuca-One daily CHOLECALCIFEROL 77883886891 Active Kylie Holt APRN Active PROBIOTIC DAILY ORAL CAPSULE Take one daily PROBIO TIC PRODUCT 27317342851 Active Kylie Holt APRN Active IRON 325 (65 Fe) MG ORAL TABLET 1 every other day FERROUS SULFATE 49749729707 No Longer Active Kylie Holt APRN Active FLORANEX ORAL PACKET 1 pack three times daily, for bowel health LACTOBACILLUS 25400090440 No Longer Active Kylie Yokum VICE PRESIDENT OF TALENT MANAGEMENT Active LOMOTIL 2.5-0.025 MG ORAL TABLET 1 tab by mouth prn 20 23/10/23 DIPHENOXYLATE-ATROPINE 59136802717 No Longer Active Kylie Yokum VICE PRESIDENT OF TALENT MANAGEMENT Active MAGNESIUM GLUCONATE 250 MG ORAL TABLET 1 tab tid 20 23/10/23 MAGNESIUM GLUCONATE 89157918849 No Longer Active Kylie Yokum VICE PRESIDENT OF TALENT MANAGEMENT Active CYANOCOBALAMIN 1000 MCG/ML INJECTION SOLUTION 1 injection ev ruben 2 weeks CYANOCOBALAMIN 23266256318 No Longer Active Kylie Yok um VICE PRESIDENT OF TALENT MANAGEMENT Active ATENOLOL 25 MG ORAL TABLET 1/2 pill by mouth daily, fo r headaches, blood pressure ATENOLOL 30705090068 Active Kylie Yokum VICE PRESIDENT OF TALENT MANAGEMENT Active PROPRANOLOL HCL 80 MG ORAL TABLET 1 tab tue. and thur. PROPRANOLOL HCL 47189031565 No Longer Active Hope Benavidez MD PhD A ctive VITAMIN D3 4000 IU 1 tab 3 times daily VITAMIN D3 4000 IU No Longer Active Hope Benavidez MD PhD Active BACTRIM DS 800-160 MG ORAL TABLET 1 pill by mouth twice claudio y, for UTI SULFAMETHOXAZOLE-TRIMETHOPRIM 51738076228 No Longer Active Hope Benavidez MD PhD Active PROLIA 60 MG/ML SUBCUTANEOUS SOLUTION 1 shot every 6 months for osteoprosis DENOSUMAB 99967067823 Active Hope Benavidez MD PhD Active CALCIUM + D + K 750-500-40 MG-UNT-MCG ORAL TABLET 1 tab by m out twice daily CALCIUM-VITAMIN D-VITAMIN K 82496471161 Active Hope valdez MD PhD Active DAILY VALUE MULTIVITAMIN ORAL TABLET 1 tab by mouth twice daily 201 05/16/14 MULTIPLE VITAMIN 05049602745 Active Hope Benavidez MD PhD Acti ve FISH OIL 306 MG CAPS 1 tab by mouth three times daily OMEGA-3 FATTY ACIDS 92718609912 Active Hope Benavidez MD PhD Active LUTEIN 10 MG ORAL TABLET 1 tab daily LUTEIN 61372178 408 Active Hope Benavidez MD PhD Active TRIAMTERENE-HCTZ 37.5-25 MG ORAL TABLET 1 tab by mouth daily 10/22 TRIAMTERENE-HCTZ 08952683168 Active Kylie Holt VICE PRESIDENT OF TALENT MANAGEMENT Active CYCLOBENZAPRINE HCL 10 MG ORAL TABLET 1 tablet by [facility] three times daily as needed for headaches CYCLOBENZAPRINE HCL 36287428830 No Longer Active Adam Yates MD Active OMEPRAZOLE 20 MG ORAL CAPSULE DELAYED RELEASE 1 tablet by [facility] daily for GERD OMEPRAZOLE 29508842909 No Longer Active Adam Yates MD Active ZOFRAN 8 MG ORAL TABLET 1 tab by mouth every 12 hours prn 4 ONDANSETRON HCL 32455703509 No Longer Active Adam Yates MD Active PHENADOZ 25 MG RECTAL SUPPOSITORY 1 every 4 hrs. PRN 2 PROMETHAZINE HCL 81133477527 No Longer Active Adam Yates MD A ctive POTASSIUM CHLORIDE 20 MEQ ORAL PACKET by mouth twice a day prn 2 POTASSIUM CHLORIDE 92679882863 No Longer Active Adam Carpenter MD Active PROMETHAZINE HCL 25 MG ORAL TABLET 1 Q. 4 hr. PRN PROMETHAZINE HCL 54404144349 No Longer Active Adam Yates MD Active INNOPRAN XL 120 MG ORAL CAPSULE EXTENDED RELEASE 24 HO UR Take one by mouth daily PROPRANOLOL HCL SR BEADS 42374706646 No Longer Active Adam Yates MD Active FLAGYL 500 MG ORAL TABLET 1 pill by mouth three times daily, for diarrhea METRONIDAZOLE 58483420562 No Longer Active Hope landers MD PhD Active DYAZIDE 37.5-25 MG ORAL CAPSULE 1 qd TRIA MTERENE-HCTZ 93586276794 No Longer Active Hope Benavidez MD PhD Active PROZAC 20 MG ORAL CAPSULE 1 q d FLUOXETINE HCL 66069613551 No Longer Active Hope Benavidez MD PhD Active SIMVASTATIN 40 MG ORAL TABLET 1 qd SIMVAS TATIN 32671826771 No Longer Active Adam Yates MD Active MELOXICAM 15 MG ORAL TABLET 1 qd MELOXICAM 72155550992 No Longer Active Adam Yates MD Active EXCEDRIN EXTRA STRENGTH 250-250-65 MG ORAL TABLET 1-2 q6h IL N headache [id number] 09368167651 Active Hope Benavidez MD PhD Active FLAGYL 500 MG ORAL TABLET 1 qid METRONIDAZOL E 71015384776 No Longer Active Adam Yates MD Active LEVAQUIN 750 MG ORAL TABLET 1 qd LEVOFLOXAC IN 54727952518 No Longer Active Adam Yates MD Active ADULT ASPIRIN LOW STRENGTH 81 MG ORAL TABLET DISINTEGRATING 1 qd ASPIRIN 24275062872 Active Hope Benavidez MD PhD Active LEVAQUIN 750 MG ORAL TABLET 1 qd LEVAQUIN 750 MG ORAL TABLET 764129 LEVOFLOXACIN Inactive FLAGYL 500 MG ORAL TABLET 1 qid FLAGYL 500 MG ORAL TABLET 342229 METRONIDAZOLE Inactive MELOXICAM 15 MG ORAL TABLET 1 qd MELOXICAM 15 MG ORAL TABLET 514790 MELOXICAM Inactive SIMVASTATIN 40 MG ORAL TABLET 1 qd SIMVASTATIN 40 MG ORAL TABLET 679177 SIMVASTATIN Inactive PROZAC 20 MG ORAL CAPSULE 1 q d PROZAC 20 MG ORAL CAPSULE 402663 FLUOXETINE HCL Inactive DYAZIDE 37.5-25 MG ORAL CAPSULE 1 qd 5 DYAZIDE 37.5-25 MG ORAL CAPSULE 425048 TRIAMTERENE-HCTZ Inactive INNOPRAN XL 120 MG ORAL CAPSULE EXTENDED RELEASE 24 HO UR Take one by mouth daily INNOPRAN XL 120 MG ORAL CAPSULE EXTENDED RELEASE 24 HOUR PROPRANOLOL HCL SR BEADS Inactive PROMETHAZINE HCL 25 MG ORAL TABLET 1 Q. 4 hr. PRN 2013 PROMETHAZINE HCL 25 MG ORAL TABLET 922544 PROMETHAZINE HCL Inactive POTASSIUM CHLORIDE 20 MEQ ORAL PACKET by mouth twice a day prn 2 POTASSIUM CHLORIDE 20 MEQ ORAL PACKET 4919907 POTASSIUM CHLORIDE Inactive PHENADOZ 25 MG RECTAL SUPPOSITORY 1 every 4 hrs. PRN 2 PHENADOZ 25 MG RECTAL SUPPOSITORY 761839 PROMETHAZINE HCL Inactive ZOFRAN 8 MG ORAL TABLET 1 tab by mouth every 12 hours prn 4 ZOFRAN 8 MG ORAL TABLET 865728 ONDANSETRON HCL Inactive OMEPRAZOLE 20 MG ORAL CAPSULE DELAYED RELEASE 1 tablet by mo [facility] daily for GERD OMEPRAZOLE 20 MG ORAL CAPSULE DELAYED RELEASE 19 8051 OMEPRAZOLE Inactive CYCLOBENZAPRINE HCL 10 MG ORAL TABLET 1 tablet by mout three times daily as needed for headaches CYCLOBENZAPRINE HCL 10 MG ORAL TABLET 677138 CYCLOBENZAPRINE HCL Inactive VITAMIN D3 4000 IU 1 tab 3 times daily VITAMIN D3 4000 IU Inactive PROPRANOLOL HCL 80 MG ORAL TABLET 1 tab tue. and thur. PROPRANOLOL HCL 80 MG ORAL TABLET 017185 PROPRANOLOL HCL Inacti ve CYANOCOBALAMIN 1000 MCG/ML INJECTION SOLUTION 1 injection ev ruben 2 weeks CYANOCOBALAMIN 1000 MCG/ML INJECTION SOLUTION 30 9594 CYANOCOBALAMIN Inactive MAGNESIUM GLUCONATE 250 MG ORAL TABLET 1 tab tid 23/10/23 MAGNESIUM GLUCONATE 250 MG ORAL TABLET 199114 MAGNESIUM GLUCONATE Inactive LOMOTIL 2.5-0.025 MG ORAL TABLET 1 tab by mouth prn 23/10/23 LOMOTIL 2.5-0.025 MG ORAL TABLET 8927240 DIPHENOXYLATE-ATROPINE Inac tive FLORANEX ORAL PACKET 1 pack three times daily, for bowel health FLORANEX ORAL PACKET 12123742200 LACTOBACILLUS Inactive IRON 325 (65 Fe) MG ORAL TABLET 1 every other day 2015 IRON 325 (65 Fe) MG ORAL TABLET 378034 FERROUS SULFATE Inactive FLAGYL 500 MG ORAL TABLET 1 pill by mouth three times daily, for diarrhea FLAGYL 500 MG ORAL TABLET 214555 METRONIDAZOLE I nactive BACTRIM DS 800-160 MG ORAL TABLET 1 pill by mouth twice claudio y, for UTI BACTRIM DS 800-160 MG ORAL TABLET 933988 SULFAMETHOXAZOLE-TRIMETHOPRIM Inactive Advance Directives Directive Description Start [...] ... - Chemistry sodium, serum 141 mmol/L 000-779 5856/01/10 potassium, serum 3.7 mmol/L 3.5-5.2 chloride, serum 101 mmol/L 98-107 carbon dioxide, venous blood 31.0 mmol/L 21.0-32 .0 blood glucose 96 mg/dL 65-95 calcium, serum 9.5 mg/dL 8.5-10.1 urea nitrogen, blood 21 mg/dL 7-18 creatinine, serum 1.40 mg/dL 0.60-1.30 Estimated Glomerular Filtration Rate (calc) 39 (?) mL/min/1.73m2 = OR > 60 mL/min cholesterol, serum 211 mg/dL 609-161 5991/01/10 triglyceride, serum, fasting 77 mg/dL 30-200 HDL cholesterol, serum 70 mg/dL 32-60 LDL cholesterol, serum 126 mg/dL 0-130 TSH 1.19 m[iU]/mL 0.36-3.74 Lab Report: CBC, Basic Metabolic Panel, MICROALB/CREAT W/RATIO, Lipid Pa ... - Hematology mean corpuscular hemoglobin, RBC 30.1 pg 27. 0-31.2 leukocyte count, blood 4.6 10^3/MM^3 10*3/mm3 4.6-10.2 erythrocyte (RBC) count 4.69 10^6/MM^3 10*6/mm3 3.80-5.8 0 hemoglobin, blood 14.1 g/dL 12.0-16.0 hematocrit, blood 43.1 % 37.0-47.0 mean corpuscular volume, RBC 92 fL 80-97 mean corpuscular hemoglobin concentration, RBC 32.7 G/DL [...] mmol/L 21.0-32 .0 sodium, serum 142 mmol/L 181-134 7292/04/19 urea nitrogen, blood 23 mg/dL 7-18 creatinine, serum 1.33 mg/dL 0.60-1.30 alanine aminotransferase (SGPT), serum 27 U/L 12-78 aspartate aminotransferase (SGOT), serum 24 U/L 15-37 calcium, serum 9.4 mg/dL 8.5-10.1 bilirubin, serum, total 0.80 mg/dL 0.00-1.00 blood glucose 97 mg/dL 65-110 chloride, serum 101 mmol/L 98-107 Lab Report: Renal Panel, Magnesium - Chelle radha sodium, serum 142 mmol/L 961-387 3373/11/02 potassium, serum 3.4 mmol/L 3.5-5.2 chloride, serum [...] mg/dL Encounters Code Encounter Date Provider Facility CPT-54575 [id number] Vst-Est Level IV 19:48:30 FISH CLEANER MACHINE TENDER Tracy jalloh Yanet [facility] [place] [facility] [place] CPT-05897 [id number] Vst-Est Level III 14:29:19 CDT Fiorella enrico Yanet [facility] [place] [facility] [place] CPT-38938 Level 2 Est. Patient 14:58:26 CDT Kylie Lund [facility] [place] CPT-14159 Level 3 Est. Patient 08:15:24 FISH CLEANER MACHINE TENDER Kylie Lnud [facility] [place] CPT-06631 Level 2 Est. Patient 14:27:16 FISH CLEANER MACHINE TENDER Kylie boyd [facility] [place] [facility] [place] CPT-03326 Level 3 Est. Patient 17:54:48 CDT [facility] CPT-01102 Level 3 Est. Patient 16:26:30 CDT Kina blackmon [facility] [place] CPT-67355 Level 3 New Patient 16:22:01 FISH CLEANER MACHINE TENDER Adam Yates MD [facility] CPT-35656 Level 4 Est. Patient 17:00:48 CDT Kylie Lund [facility] CPT-77233 Level 3 Est. Patient 13:15:54 CDT Kylie Lund [facility] CPT-00070 Level 3 Est. Patient 09:10:11 CDT Kylie Lund [facility] CPT-55308 Level 4 Est. Patient 12:08:30 FISH CLEANER MACHINE TENDER Hope cohn MD [facility] CPT-64657 Level 4 Est. Patient 19:08:42 FISH CLEANER MACHINE TENDER Hope cohn MD [facility] CPT-34904 Level 4 Est. Patient 20:04:51 CDT Hope cohn MD [facility] CPT-93766 Level 3 New Patient 01:46:11 FISH CLEANER MACHINE TENDER Hope landers MD [facility] Procedures Code Procedure Name Date Entry Date Standard Desc ription CPT-85850 Sono Soft Tissue Head and Neck - XRAY US E ONLY 11:56:06 FISH CLEANER MACHINE TENDER CPT-18844 Abx/Therapy Injection 09:40:08 FISH CLEANER MACHINE TENDER CPT-J0897 Prolia 60 mg 09:40:08 FISH CLEANER MACHINE TENDER CPT-46592 First Vx - Ix admin for Medicare patients 02/08 10:02:45 CDT CPT-64015 Fluzone Quadrivalent Intramuscular Suspe nsion 0.5 ML 10:02:45 CDT CPT-75489 Magnesium - LAB USE ONLY 09:41:00 CDT 12/09 CPT-96882 Renal Panel - LAB USE ONLY 09:41:00 CDT 201 09/17/01 CPT-11426 Venipuncture Draw Fee 09:41:00 CDT CPT-58104 Calcium - LAB USE ONLY 17:25:11 CDT CPT-J0897 Prolia 60 mg 15:10:59 CDT CPT-23381 Abx/Therapy Injection 15:10:59 CDT CPT-G0439 [facility] Annual Wellness Exam 14:29:19 CDT CPT-94658 Venipuncture Draw Fee 10:59:04 CDT CPT-08532 CMP - LAB USE ONLY 10:59:04 CDT CPT-69618 CBC with Diff - LAB USE ONLY 10:59:03 CDT 2 CPT-J0897 Prolia 60 mg 15:46:54 FISH CLEANER MACHINE TENDER CPT-21085 Abx/Therapy Injection 15:46:54 FISH CLEANER MACHINE TENDER CPT-27535 Microalbumin - LAB USE ONLY 09:41:32 FISH CLEANER MACHINE TENDER 20 23/01/15 CPT-29140 Free T4 - LAB USE ONLY 09:41:32 FISH CLEANER MACHINE TENDER CPT-97686 TSH - LAB USE ONLY 09:41:32 FISH CLEANER MACHINE TENDER CPT-70743 BMP - LAB USE ONLY 09:41:32 FISH CLEANER MACHINE TENDER CPT-41775 Venipuncture Draw Fee 09:41:32 FISH CLEANER MACHINE TENDER CPT-97886 First Vx - Ix admin for Medicare patients 11:19:30 CDT CPT-77029 Fluzone High-Dose Intramuscular Suspension 12/07 11:19:30 CDT CPT-J0897 Prolia 60 mg 14:55:42 CDT CPT-62884 Abx/Therapy Injection 14:55:42 CDT CPT-60552 Bone Density - XRAY USE ONLY 10:27:12 CDT 2 CPT-G0439 [facility] Subsequent Annual Wellness Exam 17:54:53 CDT CPT-34682 Foot, left, comp min 3V - XRAY USE ONLY 12:22:49 CDT CPT-G0009 Administration of Pneumococcal Vaccine 3 12:18:00 CDT CPT-04888 Pneumovax 23 Injection Injectable 25 MCG /0.5ML 12:18:00 CDT CPT-J0897 Prolia 60 mg 14:14:16 FISH CLEANER MACHINE TENDER CPT-97259 Abx/Therapy Injection 14:14:15 FISH CLEANER MACHINE TENDER CPT-19749 Lipid - LAB USE ONLY 10:01:52 FISH CLEANER MACHINE TENDER 2 CPT-83307 Calcium - LAB USE ONLY 10:01:51 FISH CLEANER MACHINE TENDER CPT-25489 Venipuncture Draw Fee 10:01:51 FISH CLEANER MACHINE TENDER CPT-LR Lesion Removal 16:22:01 FISH CLEANER MACHINE TENDER CPT-16152 TSH - LAB USE ONLY 14:26:02 CDT CPT-96410 CMP - LAB USE ONLY 14:26:01 CDT CPT-16970 CBC with Diff - LAB USE ONLY 14:26:01 CDT 2 CPT-62648 Venipuncture Draw Fee 14:26:01 CDT CPT-44487 First Vx - Ix admin for Medicare patients 13:27:08 CDT CPT-43620 Fluzone High-Dose Intramuscular Suspension 11/26 13:27:08 CDT CPT-G0438 Initial Annual Wellness Exam 14:19:57 CD T CPT-G0009 Administration of Pneumococcal Vaccine 9 11:36:25 CDT CPT-42492 Prevnar 13 Intramuscular Suspension 1 1:36:25 CDT CPT-02790 Prevnar 13 Intramuscular Suspension 1 0:40:58 CDT CPT-J0897 Prolia 60 mg 10:37:16 CDT CPT-67887 Abx/Therapy Injection 10:37:16 CDT CPT-J0897 Prolia 60 mg 16:09:34 FISH CLEANER MACHINE TENDER CPT-J0897 Prolia 60 mg 11:10:35 FISH CLEANER MACHINE TENDER CPT-40949 Abx/Therapy Injection 11:10:35 FISH CLEANER MACHINE TENDER CPT-000 Give Appropriate Flu Vaccine 17:01:15 FISH CLEANER MACHINE TENDER 2 CPT-94819 Fluzone High Dose (65+) 15:03:08 FISH CLEANER MACHINE TENDER 02/15 CPT-20568 Immunization Single Admin 15:03:08 FISH CLEANER MACHINE TENDER 2014 CPT-OV Office Visit 15:58:06 CDT CPT-J0897 Prolia 60 mg 08:45:38 CDT CPT-81151 Abx/Therapy Injection 08:45:38 CDT CPT-J3420 Vitamin B12 1000mcg (Cyanocobalamin) 09:26:20 FISH CLEANER MACHINE TENDER CPT-23426 Abx/Therapy Injection 09:26:20 FISH CLEANER MACHINE TENDER CPT-J3420 Vitamin B12 1000mcg (Cyanocobalamin) 09:44:40 FISH CLEANER MACHINE TENDER CPT-77906 Abx/Therapy Injection 09:44:40 FISH CLEANER MACHINE TENDER CPT-J3420 Vitamin B12 1000mcg (Cyanocobalamin) 09:15:54 FISH CLEANER MACHINE TENDER CPT-75061 Abx/Therapy Injection 09:15:54 FISH CLEANER MACHINE TENDER CPT-J3420 Vitamin B12 1000mcg (Cyanocobalamin) 09:46:44 FISH CLEANER MACHINE TENDER CPT-03009 Abx/Therapy Injection 09:46:44 FISH CLEANER MACHINE TENDER CPT-J3420 Vitamin B12 1000mcg (Cyanocobalamin) 09:47:34 FISH CLEANER MACHINE TENDER CPT-73342 Abx/Therapy Injection 09:47:34 FISH CLEANER MACHINE TENDER CPT-J3420 Vitamin B12 1000mcg (Cyanocobalamin) 14:35:50 FISH CLEANER MACHINE TENDER CPT-J3420 Vitamin B12 1000mcg (Cyanocobalamin) 09:25:05 FISH CLEANER MACHINE TENDER CPT-08510 Abx/Therapy Injection 09:25:05 FISH CLEANER MACHINE TENDER CPT-G0008 Administration of Influenza Virus Vaccine 13:36:47 CDT CPT-71378 Fluzone High-Dose Intramuscular Suspension 11/15 13:36:47 CDT CPT-J0897 Prolia 60 mg 08:50:41 CDT CPT-04905 Abx/Therapy Injection 08:50:41 CDT CPT-00508 Bone Density 12:06:12 CDT CPT-22586 Bone Density 08:54:40 CDT CPT-OV Office Visit 15:37:02 CDT CPT-96514 Postop F/U Visit 15:47:49 CDT CPT-23608 Postop F/U Visit 15:21:02 CDT CPT-TCMH Transitional Care Mgmt-High 07:52:27 CDT 20 20/06/01 CPT-95165 Venipuncture Draw Fee 13:51:18 CDT CPT-39008 Venipuncture Draw Fee 10:14:55 FISH CLEANER MACHINE TENDER CPT-97095 Venipuncture Draw Fee 13:39:45 FISH CLEANER MACHINE TENDER CPT-OV Office Visit 15:11:22 FISH CLEANER MACHINE TENDER CPT-92624 Venipuncture Draw Fee 09:20:49 FISH CLEANER MACHINE TENDER CPT-95056 Venipuncture Draw Fee 16:52:15 FISH CLEANER MACHINE TENDER CPT-39531 Venipuncture Draw Fee 10:37:24 FISH CLEANER MACHINE TENDER CPT-21847 Venipuncture Draw Fee 08:21:21 FISH CLEANER MACHINE TENDER CPT-81563 Venipuncture Draw Fee 08:30:20 FISH CLEANER MACHINE TENDER CPT-34042 Venipuncture Draw Fee 14:53:21 FISH CLEANER MACHINE TENDER CPT-51593 Venipuncture Draw Fee 09:40:56 FISH CLEANER MACHINE TENDER CPT-03235 Venipuncture Draw Fee 10:30:47 FISH CLEANER MACHINE TENDER CPT-98393 Venipuncture Draw Fee 10:46:17 FISH CLEANER MACHINE TENDER CPT-99347 Venipuncture Draw Fee 11:12:45 FISH CLEANER MACHINE TENDER CPT-83655 Venipuncture Draw Fee 09:53:33 FISH CLEANER MACHINE TENDER CPT-82620 Venipuncture Draw Fee 11:53:51 FISH CLEANER MACHINE TENDER CPT-89946 Venipuncture Draw Fee 10:33:50 FISH CLEANER MACHINE TENDER CPT-85015 Venipuncture Draw Fee 10:05:01 FISH CLEANER MACHINE TENDER CPT-16496 Venipuncture Draw Fee 14:32:52 FISH CLEANER MACHINE TENDER CPT-04141 Venipuncture Draw Fee 09:46:13 FISH CLEANER MACHINE TENDER CPT-48572 Venipuncture Draw Fee 11:34:27 FISH CLEANER MACHINE TENDER CPT-25102 Venipuncture Draw Fee 13:17:16 FISH CLEANER MACHINE TENDER CPT-57638 Venipuncture Draw Fee 12:05:39 CDT CPT-98487 Venipuncture Draw Fee 12:49:12 CDT CPT-96643 Venipuncture Draw Fee 12:37:18 CDT CPT-37992 Venipuncture Draw Fee 10:57:11 CDT CPT-43481 Venipuncture Draw Fee 13:47:40 CDT CPT-71330 Venipuncture Draw Fee 10:02:17 CDT CPT-22964 TB Tubersol 17:32:32 CDT CPT-OV Office Visit 16:21:53 CDT CPT-OV Office Visit 15:49:22 CDT CPT-OV Office Visit 17:16:31 CDT CPT-OV Office Visit 10:43:31 CDT
--- OUTSIDE RECORDS SUMMARY | 2019-02-09 12:02 | XMS REPORT | Clinical Summary ---
Author Author Admin, Florecita Munoz Organization [facility] [employer] Address Unknown Phone Unavailable Allergies, Adverse Reactions, [...] reflux Health maintenance exam V70.0 Resolved Adolfo Yatse MD Routine general medical examination at a [...] Sebaceous cyst, scalp 706.2 Resolved Kylie Yokum [employer] SUPERVISOR Sebaceous cyst Cervical lymphadenopathy, anterior, left 785.6 Resolv ed Kylie Yokum [employer] G[employer] SUPERVISOR Enlargement of lymph nodes Need for prophylactic vaccination and inoculation against in fluenza V04.81 Resolved Adam Yates MD Need for prophylactic vaccination and inoculation against influenza Preventive health care V70.0 Resolved Klyie Yoku m [employer] GANG SUPERVISOR Routine general medical examination at a health care facility Thyroid nodule, left 241.0 Active Kylie Yokum A PRN Nontoxic uninodular goiter Screening mammogram V76.12 Resolved Kylie Yokum A PRN Other screening mammogram Mandy 706.2 Resolved Kylie Yokum [employer] G[employer] SUPERVISOR Sebaceous cyst Colon cancer, ascending 153.6 Resolved Kylie Yok um [employer] GANG SUPERVISOR Malignant neoplasm of ascending colon Foot pain, left 729.5 Resolved Kylie Yokum [employer] GANG SUPERVISOR Pain in limb Splinter 919.6 Resolved Kylie Yokum [employer] GANG SUPERVISOR Superficial foreign body (splinter) of other, multiple, and unspecified sites, without major open wound and without mention of infection Rash 782.1 Resolved Kylie Yokum [employer] GANG SUPERVISOR Rash and other nonspecific skin eruption Cyst 706.2 Resolved Kylie Yokum [employer] G[employer] SUPERVISOR Sebaceous cyst Body Mass Index 23.0-23.9 Adult Active Kylie Yokum [employer] G[employer] SUPERVISOR Body Mass Index between 19-24, adult Unspecified fall, initial encounter E888.9 Inactive Kylie Holt [employer] GANG SUPERVISOR Unspecified fall Eye pain, left 379.91 Inactive Kylie Holt [employer] GANG SUPERVISOR Pain in or around eye Pharyngitis, acute 074.0 Active Kylie Holt APR N Herpangina Chronic kidney disease stage 2 585.2 Active Rosemarie Gresham RN Chronic kidney disease, Stage II (mild) Hypomagnesemia 275.2 Active Rosemarie Gresham RN Disorders of magnesium metabolism Hypokalemia 276.8 Active Rosemarie Gresham RN Hypopotassemia Enlarged thyroid 240.9 Active Citlaly Roland A Goiter, unspecified ABDOMINAL PAIN, RIGHT LOWER QUADRANT ICD-789.03 Inactive Kina Joshua [employer] G[employer] SUPERVISOR ADENOCARCINOMA, COLON, 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 Dick Yates MD ABDOMINAL PAIN, GENERALIZED ICD-789.07 Inactive Hope Benavidez MD PhD FEVER UNSPECIFIED ICD-780.60 Inactive Hope cohn MD PhD UNSPECIFIED VENOUS INSUFFICIENCY ICD-459.81 [place] ctive Adam Yates MD ADENOCARCINOMA, 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 Inac tive Hope Benavidez MD PhD Hyperkalemia ICD-276.7 Inactive Hope Benavidez MD PhD GERD ICD-530.81 Inactive Kylie Yanet [employer] SUPER[employer]OR 2015 Health maintenance exam ICD-V70.0 Inactive Adolfo Yates MD Anemia ICD-285.9 Inactive Kylie Yokum [employer] GANG SUPER[employer]OR 07/24 Hypomagnesemia ICD-275.2 Inactive Kylie Yokum [employer] G[employer] SUPERVISOR Weakness ICD-780.79 Inactive Hope Benavidez MD [...] cyst, scalp ICD-706.2 Inactive Tracy shubham Yokum [employer] G[employer] SUPERVISOR Cervical lymphadenopathy, anterior, left ICD-785.6 Inactive Kylie Yokum [employer] GANG SUPERVISOR Need for prophylactic vaccination and inoculation against in fluenza ICD-V04.81 Inactive Adam Yates MD Preventive health care ICD-V70.0 Inactive Ka thi Yokum LABOR GANG SUPERVISOR Screening mammogram ICD-V76.12 Inactive Kylie Yokum LAB[employer] G[employer] SUPER[employer]OR Mandy ICD-706.2 Inactive Kylie Yokum [employer]OR GANG SUPERVISOR 2017/ 06/13 Colon cancer, ascending ICD-153.6 Inactive K umang Holt LABOR GANG SUPERVISOR Foot pain, left ICD-729.5 Inactive Klyie Holt [employer] G[employer] SUPER[employer]OR Splinter ICD-919.6 Inactive Kylie Holt [employer] G[employer] SUPERVISOR 2017 Rash ICD-782.1 Inactive Kylie Lundum [employer] G[employer] SUPER[employer]OR 07/25 Cyst ICD-706.2 Inactive Kylie Holt [employer] GANG SUPERVISOR 08/11 Unspecified fall, initial encounter ICD-E888.9 Inactive Kylie Holt [employer] GANG SUPER[employer]OR Eye pain, left ICD-379.91 Inactive Kylie Holt [employer] GANG SUPERVISOR Medication List Medication Instructions Start Date Stop Date Generic Name NDC Status Provider Patient Instruction VOLTAREN 1 % TRANSDERMAL GEL apply 2 grams q 6-8 hour to left arm as needed for pain DICLOFENAC SODIUM 87306573071 Active Kylie Holt APR N Active IMODIUM A-D 2 MG ORAL TABLET 1 tablet twice a day LOPERAMIDE HCL 49907754954 Active Kylie Holt APRN Active COQ10 100 MG ORAL CAPSULE 1 daily COENZYME Q10 083050 48166 Active LETY Nation Active VITAMIN D3 2000 UNIT ORAL CAPSULE Melaleuca-One daily CHOLECALCIFEROL 43293474396 Active Kylie Holt APRN Active PROBIOTIC DAILY ORAL CAPSULE Take one daily PROBIO TIC PRODUCT 28898261068 Active Kylie Holt APRN Active IRON 325 (65 Fe) MG ORAL TABLET 1 every other day FERROUS SULFATE 32908312586 No Longer Active Kylie Holt APRN Active FLORANEX ORAL PACKET 1 pack three times daily, for bowel health LACTOBACILLUS 49622364771 No Longer Active Kylie Holt APRN Active LOMOTIL 2.5-0.025 MG ORAL TABLET 1 tab by mouth prn 20 23/10/23 DIPHENOXYLATE-ATROPINE 45671337983 No Longer Active Kylie Yokum [employer] GANG SUPERVISOR Active MAGNESIUM GLUCONATE 250 MG ORAL TABLET 1 tab tid 23/10/23 MAGNESIUM GLUCONATE 77833449479 No Longer Active Kylie Yokum [employer] G[employer] SUPERVISOR Active CYANOCOBALAMIN 1000 MCG/ML INJECTION SOLUTION 1 injection ev ruben 2 weeks CYANOCOBALAMIN 88788801070 No Longer Active Kylie Yok um [employer] SUPER[employer]OR Active ATENOLOL 25 MG ORAL TABLET 1/2 pill by mouth daily, fo r headaches, blood pressure ATENOLOL 30543968586 Active Kylie Yokum [employer] G[employer] SUPERVISOR Active PROPRANOLOL HCL 80 MG ORAL TABLET 1 tab tue. and thur. PROPRANOLOL HCL 86409666244 No Longer Active Hope Benavidez MD PhD A ctive VITAMIN D3 4000 IU 1 tab 3 times daily VITAMIN D3 4000 IU No Longer Active Hope Benavidez MD PhD Active BACTRIM DS 800-160 MG ORAL TABLET 1 pill by mouth twice claudio y, for UTI SULFAMETHOXAZOLE-TRIMETHOPRIM 45213754805 No Longer Active Hope Benavidez MD PhD Active PROLIA 60 MG/ML SUBCUTANEOUS SOLUTION 1 shot every 6 months for osteoprosis DENOSUMAB 55926943284 Active Hope Benavidez MD PhD Active CALCIUM + D + K 750-500-40 MG-UNT-MCG ORAL TABLET 1 tab by [facility] twice daily CALCIUM-VITAMIN D-VITAMIN K 26076150774 Active Hope valdez MD PhD Active DAILY VALUE MULTIVITAMIN ORAL TABLET 1 tab by mouth twice daily 201 05/16/14 MULTIPLE VITAMIN 74491634070 Active Hope Benavidez MD PhD Acti ve FISH OIL 306 MG CAPS 1 tab by mouth three times daily OMEGA-3 FATTY ACIDS 35338790981 Active Hope Benavidez MD PhD Active LUTEIN 10 MG ORAL TABLET 1 tab daily LUTEIN 36598285 408 Active Hope Benavidez MD PhD Active TRIAMTERENE-HCTZ 37.5-25 MG ORAL TABLET 1 tab by mouth daily 10/22 TRIAMTERENE-HCTZ 39229710450 Active Kylie Holt [employer] G[employer] SUPERVISOR Active CYCLOBENZAPRINE HCL 10 MG ORAL TABLET 1 tablet by mout h three times daily as needed for headaches CYCLOBENZAPRINE HCL 41417578403 No Longer Active Adam Yates MD Active OMEPRAZOLE 20 MG ORAL CAPSULE DELAYED RELEASE 1 tablet by mo [facility] daily for GERD OMEPRAZOLE 88341156733 No Longer Active Adam Yates MD Active ZOFRAN 8 MG ORAL TABLET 1 tab by mouth every 12 hours prn 4 ONDANSETRON HCL 10607502161 No Longer Active Adam Yates MD Active PHENADOZ 25 MG RECTAL SUPPOSITORY 1 every 4 hrs. PRN 2 PROMETHAZINE HCL 61882229509 No Longer Active Adam Yates MD A ctive POTASSIUM CHLORIDE 20 MEQ ORAL PACKET by mouth twice a day prn 2 POTASSIUM CHLORIDE 68084148989 No Longer Active Adam Carpenter MD Active PROMETHAZINE HCL 25 MG ORAL TABLET 1 Q. 4 hr. PRN PROMETHAZINE HCL 88225771076 No Longer Active Adam Yates MD Active INNOPRAN XL 120 MG ORAL CAPSULE EXTENDED RELEASE 24 HO UR Take one by mouth daily PROPRANOLOL HCL SR BEADS 72032048065 No Longer Active Adam Yates MD Active FLAGYL 500 MG ORAL TABLET 1 pill by mouth three times daily, for diarrhea METRONIDAZOLE 61007216994 No Longer Active Hope landers MD PhD Active DYAZIDE 37.5-25 MG ORAL CAPSULE 1 qd TRIA MTERENE-HCTZ 97928008468 No Longer Active Hope Benavidez MD PhD Active PROZAC 20 MG ORAL CAPSULE 1 q d FLUOXETINE HCL 88832378792 No Longer Active Hope Benavidez MD PhD Active SIMVASTATIN 40 MG ORAL TABLET 1 qd SIMVAS TATIN 41125152614 No Longer Active Adam Yates MD Active MELOXICAM 15 MG ORAL TABLET 1 qd MELOXICAM 75885301380 No Longer Active Adam Yates MD Active EXCEDRIN EXTRA STRENGTH 250-250-65 MG ORAL TABLET 1-2 q6h MN N headache [id number] 32421583116 Active Hope Benavidez MD PhD Active FLAGYL 500 MG ORAL TABLET 1 qid METRONIDAZOL E 07303524800 No Longer Active Adam Yates MD Active LEVAQUIN 750 MG ORAL TABLET 1 qd LEVOFLOXAC IN 50896398594 No Longer Active Adam Yates MD Active ADULT ASPIRIN LOW STRENGTH 81 MG ORAL TABLET DISINTEGRATING 1 qd ASPIRIN 17716085956 Active Hope Benavidez MD PhD Active LEVAQUIN 750 MG ORAL TABLET 1 qd LEVAQUIN 750 MG ORAL TABLET 377186 LEVOFLOXACIN Inactive FLAGYL 500 MG ORAL TABLET 1 qid FLAGYL 500 MG ORAL TABLET 049691 METRONIDAZOLE Inactive MELOXICAM 15 MG ORAL TABLET 1 qd MELOXICAM 15 MG ORAL TABLET 795741 MELOXICAM Inactive SIMVASTATIN 40 MG ORAL TABLET 1 qd SIMVASTATIN 40 MG ORAL TABLET 598617 SIMVASTATIN Inactive PROZAC 20 MG ORAL CAPSULE 1 q d PROZAC 20 MG ORAL CAPSULE 939243 FLUOXETINE HCL Inactive DYAZIDE 37.5-25 MG ORAL CAPSULE 1 qd 5 DYAZIDE 37.5-25 MG ORAL CAPSULE 807831 TRIAMTERENE-HCTZ Inactive INNOPRAN XL 120 MG ORAL CAPSULE EXTENDED RELEASE 24 HO UR Take one by mouth daily INNOPRAN XL 120 MG ORAL CAPSULE EXTENDED RELEASE 24 HOUR PROPRANOLOL HCL SR BEADS Inactive PROMETHAZINE HCL 25 MG ORAL TABLET 1 Q. 4 hr. PRN 2013 PROMETHAZINE HCL 25 MG ORAL TABLET 546967 PROMETHAZINE HCL Inactive POTASSIUM CHLORIDE 20 MEQ ORAL PACKET by mouth twice a day prn 2 POTASSIUM CHLORIDE 20 MEQ ORAL PACKET 8851198 POTASSIUM CHLORIDE Inactive PHENADOZ 25 MG RECTAL SUPPOSITORY 1 every 4 hrs. PRN 2 PHENADOZ 25 MG RECTAL SUPPOSITORY 662685 PROMETHAZINE HCL Inactive ZOFRAN 8 MG ORAL TABLET 1 tab by mouth every 12 hours prn 4 ZOFRAN 8 MG ORAL TABLET 030850 ONDANSETRON HCL Inactive OMEPRAZOLE 20 MG ORAL CAPSULE DELAYED RELEASE 1 tablet by mo uth daily for GERD OMEPRAZOLE 20 MG ORAL CAPSULE DELAYED RELEASE 19 8051 OMEPRAZOLE Inactive CYCLOBENZAPRINE HCL 10 MG ORAL TABLET 1 tablet by mout h three times daily as needed for headaches CYCLOBENZAPRINE HCL 10 MG ORAL TABLET 687138 CYCLOBENZAPRINE HCL Inactive VITAMIN D3 4000 IU 1 tab 3 times daily VITAMIN D3 4000 IU Inactive PROPRANOLOL HCL 80 MG ORAL TABLET 1 tab tue. and thur. PROPRANOLOL HCL 80 MG ORAL TABLET 631459 PROPRANOLOL HCL Inacti ve CYANOCOBALAMIN 1000 MCG/ML INJECTION SOLUTION 1 injection ev ruben 2 weeks CYANOCOBALAMIN 1000 MCG/ML INJECTION SOLUTION 30 9594 CYANOCOBALAMIN Inactive MAGNESIUM GLUCONATE 250 MG ORAL TABLET 1 tab tid 20 23/10/23 MAGNESIUM GLUCONATE 250 MG ORAL TABLET 790328 MAGNESIUM GLUCONATE Inactive LOMOTIL 2.5-0.025 MG ORAL TABLET 1 tab by mouth prn 20 23/10/23 LOMOTIL 2.5-0.025 MG ORAL TABLET 4394283 DIPHENOXYLATE-ATROPINE Inac tive FLORANEX ORAL PACKET 1 pack three times daily, for bowel health FLORANEX ORAL PACKET 41488196656 LACTOBACILLUS Inactive IRON 325 (65 Fe) MG ORAL TABLET 1 every other day 2015 IRON 325 (65 Fe) MG ORAL TABLET 465690 FERROUS SULFATE Inactive FLAGYL 500 MG ORAL TABLET 1 pill by mouth three times daily, for diarrhea FLAGYL 500 MG ORAL TABLET 911713 METRONIDAZOLE I nactive BACTRIM DS 800-160 MG ORAL TABLET 1 pill by mouth twice claudio y, for UTI BACTRIM DS 800-160 MG ORAL TABLET 247071 SULFAMETHOXAZOLE-TRIMETHOPRIM Inactive Advance Directives Directive Description Start [...] Description blood pressure, diastolic, repeated by physician 60 [...] ... - Chemistry sodium, serum 141 mmol/L 002-551 9298/01/10 potassium, serum 3.7 mmol/L 3.5-5.2 chloride, serum 101 mmol/L 98-107 carbon dioxide, venous blood 31.0 mmol/L 21.0-32 .0 blood glucose 96 mg/dL 65-95 calcium, serum 9.5 mg/dL 8.5-10.1 urea nitrogen, blood 21 mg/dL 7-18 creatinine, serum 1.40 mg/dL 0.60-1.30 Estimated Glomerular Filtration Rate (calc) 39 (?) mL/min/1.73m2 = OR > 60 mL/min cholesterol, serum 211 mg/dL 771-474 0713/01/10 triglyceride, serum, fasting 77 mg/dL 30-200 HDL [...] ... - Lab microalbumin, urine 30 mg/L 0- Lab Report: CBC, Basic Metabolic Panel, MICROALB/CREAT W/RATIO, Lipid Pa ... - Urinalysis microalbumin/total urine volume 30 - 300 mg/g Abnormal mg/g mg/L 0- Lab Report: CEA - Serology carcinoembryonic antigen 0.6 ng/mL Lab Report: Comp. Metabolic Panel - Chem istry sodium, serum 142 mmol/L 368-675 9394/04/19 carbon dioxide, venous blood 30.2 mmol/L 21.0-32 [...] - Chelle radha sodium, serum 142 mmol/L 195-421 4001/11/02 potassium, serum 3.4 mmol/L 3.5-5.2 chloride, serum [...] mg/dL Encounters Code Encounter Date Provider Facility CPT-59544 18150-Clv Vst-Est Level III 14:29:19 CDT Fiorella Holt [facility] [place] CPT-04544 Level 2 Est. Patient 14:58:26 CDT Kylie Lund [facility] [place] CPT-79047 Level 3 Est. Patient 08:15:24 METALLURGICAL TECHNICIAN Kylie Lund [facility] [place] CPT-88679 Level 2 Est. Patient 14:27:16 METALLURGICAL TECHNICIAN Kylie Lund [facility] [place] CPT-34531 Level 3 Est. Patient 17:54:48 CDT Kylie Lund [facility] [place] CPT-65698 Level 3 Est. Patient 16:26:30 CDT Kinachrista blackmon [facility] CPT-51626 Level 3 New Patient 16:22:01 METALLURGICAL TECHNICIAN Adam Yates MD [facility] CPT-80738 Level 4 Est. Patient 17:00:48 CDT Kylie Lund [facility] [place] CPT-97720 Level 3 Est. Patient 13:15:54 CDT Kylie Lund [facility] CPT-08441 Level 3 Est. Patient 09:10:11 CDT Kylie Kevon [facility] CPT-47050 Level 4 Est. Patient 12:08:30 METALLURGICAL TECHNICIAN Hope cohn MD PhD [facility] CPT-74584 Level 4 Est. Patient 19:08:42 METALLURGICAL TECHNICIAN Hope cohn MD [facility] CPT-99217 Level 4 Est. Patient 20:04:51 CDT Hope cohn MD PhD [facility] CPT-66401 Level 3 New Patient 01:46:11 METALLURGICAL TECHNICIAN Hope landers MD PhD [facility] Procedures Code Procedure Name Date Entry Date Standard Desc ription CPT-52003 Sono Soft Tissue Head and Neck - XRAY US E ONLY 11:56:06 METALLURGICAL TECHNICIAN CPT-47954 Abx/Therapy Injection 09:40:08 METALLURGICAL TECHNICIAN CPT-J0897 Prolia 60 mg 09:40:08 METALLURGICAL TECHNICIAN CPT-27177 First Vx - Ix admin for Medicare patients 02/08 10:02:45 CDT CPT-83906 Fluzone Quadrivalent Intramuscular Suspe nsion 0.5 ML 10:02:45 CDT CPT-00454 Magnesium - LAB USE ONLY 09:41:00 CDT 12/09 CPT-50332 Renal Panel - LAB USE ONLY 09:41:00 CDT 201 09/17/01 CPT-15667 Venipuncture Draw Fee 09:41:00 CDT CPT-02064 Calcium - LAB USE ONLY 17:25:11 CDT CPT-J0897 Prolia 60 mg 15:10:59 CDT CPT-37123 Abx/Therapy Injection 15:10:59 CDT CPT-G0439 [facility] Annual Wellness Exam 14:29:19 CDT CPT-06956 Venipuncture Draw Fee 10:59:04 CDT CPT-36999 CMP - LAB USE ONLY 10:59:04 CDT CPT-68456 CBC with Diff - LAB USE ONLY 10:59:03 CDT 2 CPT-J0897 Prolia 60 mg 15:46:54 METALLURGICAL TECHNICIAN CPT-62578 Abx/Therapy Injection 15:46:54 METALLURGICAL TECHNICIAN CPT-66399 Microalbumin - LAB USE ONLY 09:41:32 METALLURGICAL TECHNICIAN 20 23/01/15 CPT-23816 Free T4 - LAB USE ONLY 09:41:32 METALLURGICAL TECHNICIAN CPT-36899 TSH - LAB USE ONLY 09:41:32 METALLURGICAL TECHNICIAN CPT-34472 BMP - LAB USE ONLY 09:41:32 METALLURGICAL TECHNICIAN CPT-20076 Venipuncture Draw Fee 09:41:32 METALLURGICAL TECHNICIAN CPT-06796 First Vx - Ix admin for Medicare patients 11:19:30 CDT CPT-60506 Fluzone High-Dose Intramuscular Suspension 12/07 11:19:30 CDT CPT-J0897 Prolia 60 mg 14:55:42 CDT CPT-39257 Abx/Therapy Injection 14:55:42 CDT CPT-49831 Bone Density - XRAY USE ONLY 10:27:12 CDT 2 CPT-G0439 Subsequent Annual Wellness Exam 17:54:53 CDT CPT-95180 Foot, left, comp min 3V - XRAY USE ONLY 12:22:49 CDT CPT-G0009 Administration of Pneumococcal Vaccine 3 12:18:00 CDT CPT-14880 Pneumovax 23 Injection Injectable 25 MCG /0.5ML 12:18:00 CDT CPT-J0897 Prolia 60 mg 14:14:16 METALLURGICAL TECHNICIAN CPT-18283 Abx/Therapy Injection 14:14:15 METALLURGICAL TECHNICIAN CPT-25880 Lipid - LAB USE ONLY 10:01:52 METALLURGICAL TECHNICIAN 2 CPT-19852 Calcium - LAB USE ONLY 10:01:51 METALLURGICAL TECHNICIAN CPT-80611 Venipuncture Draw Fee 10:01:51 METALLURGICAL TECHNICIAN CPT-LR Lesion Removal 16:22:01 METALLURGICAL TECHNICIAN CPT-39512 TSH - LAB USE ONLY 14:26:02 CDT CPT-70503 CMP - LAB USE ONLY 14:26:01 CDT CPT-40215 CBC with Diff - LAB USE ONLY 14:26:01 CDT 2 CPT-72668 Venipuncture Draw Fee 14:26:01 CDT CPT-62731 First Vx - Ix admin for Medicare patients 13:27:08 CDT CPT-97711 Fluzone High-Dose Intramuscular Suspension 11/26 13:27:08 CDT CPT-G0438 Initial Annual Wellness Exam 14:19:57 CD T CPT-G0009 Administration of Pneumococcal Vaccine 9 11:36:25 CDT CPT-42316 Prevnar 13 Intramuscular Suspension 1 1:36:25 CDT CPT-62083 Prevnar 13 Intramuscular Suspension 1 0:40:58 CDT CPT-J0897 Prolia 60 mg 10:37:16 CDT CPT-13084 Abx/Therapy Injection 10:37:16 CDT CPT-J0897 Prolia 60 mg 16:09:34 METALLURGICAL TECHNICIAN CPT-J0897 Prolia 60 mg 11:10:35 METALLURGICAL TECHNICIAN CPT-11716 Abx/Therapy Injection 11:10:35 METALLURGICAL TECHNICIAN CPT-000 Give Appropriate Flu Vaccine 17:01:15 METALLURGICAL TECHNICIAN 2 CPT-04729 Fluzone High Dose (65+) 15:03:08 METALLURGICAL TECHNICIAN 02/15 CPT-98390 Immunization Single Admin 15:03:08 METALLURGICAL TECHNICIAN 2014 CPT-OV Office Visit 15:58:06 CDT CPT-J0897 Prolia 60 mg 08:45:38 CDT CPT-53297 Abx/Therapy Injection 08:45:38 CDT CPT-J3420 Vitamin B12 1000mcg (Cyanocobalamin) 09:26:20 METALLURGICAL TECHNICIAN CPT-29337 Abx/Therapy Injection 09:26:20 METALLURGICAL TECHNICIAN CPT-J3420 Vitamin B12 1000mcg (Cyanocobalamin) 09:44:40 METALLURGICAL TECHNICIAN CPT-71384 Abx/Therapy Injection 09:44:40 METALLURGICAL TECHNICIAN CPT-J3420 Vitamin B12 1000mcg (Cyanocobalamin) 09:15:54 METALLURGICAL TECHNICIAN CPT-61524 Abx/Therapy Injection 09:15:54 METALLURGICAL TECHNICIAN CPT-J3420 Vitamin B12 1000mcg (Cyanocobalamin) 09:46:44 METALLURGICAL TECHNICIAN CPT-90634 Abx/Therapy Injection 09:46:44 METALLURGICAL TECHNICIAN CPT-J3420 Vitamin B12 1000mcg (Cyanocobalamin) 09:47:34 METALLURGICAL TECHNICIAN CPT-67858 Abx/Therapy Injection 09:47:34 METALLURGICAL TECHNICIAN CPT-J3420 Vitamin B12 1000mcg (Cyanocobalamin) 14:35:50 METALLURGICAL TECHNICIAN CPT-J3420 Vitamin B12 1000mcg (Cyanocobalamin) 09:25:05 METALLURGICAL TECHNICIAN CPT-76629 Abx/Therapy Injection 09:25:05 METALLURGICAL TECHNICIAN CPT-G0008 Administration of Influenza Virus Vaccine 13:36:47 CDT CPT-17527 Fluzone High-Dose Intramuscular Suspension 11/15 13:36:47 CDT CPT-J0897 Prolia 60 mg 08:50:41 CDT CPT-51964 Abx/Therapy Injection 08:50:41 CDT CPT-69153 Bone Density 12:06:12 CDT CPT-07452 Bone Density 08:54:40 CDT CPT-OV Office Visit 15:37:02 CDT CPT-30475 Postop F/U Visit 15:47:49 CDT CPT-25248 Postop F/U Visit 15:21:02 CDT [facility] 07:52:27 CDT 20 20/06/01 CPT-61603 Venipuncture Draw Fee 13:51:18 CDT CPT-84420 Venipuncture Draw Fee 10:14:55 METALLURGICAL TECHNICIAN CPT-36934 Venipuncture Draw Fee 13:39:45 METALLURGICAL TECHNICIAN CPT-OV Office Visit 15:11:22 METALLURGICAL TECHNICIAN CPT-77039 Venipuncture Draw Fee 09:20:49 METALLURGICAL TECHNICIAN CPT-32016 Venipuncture Draw Fee 16:52:15 METALLURGICAL TECHNICIAN CPT-04934 Venipuncture Draw Fee 10:37:24 METALLURGICAL TECHNICIAN CPT-84244 Venipuncture Draw Fee 08:21:21 METALLURGICAL TECHNICIAN CPT-93423 Venipuncture Draw Fee 08:30:20 METALLURGICAL TECHNICIAN CPT-92117 Venipuncture Draw Fee 14:53:21 METALLURGICAL TECHNICIAN CPT-38779 Venipuncture Draw Fee 09:40:56 METALLURGICAL TECHNICIAN CPT-06182 Venipuncture Draw Fee 10:30:47 METALLURGICAL TECHNICIAN CPT-84147 Venipuncture Draw Fee 10:46:17 METALLURGICAL TECHNICIAN CPT-33862 Venipuncture Draw Fee 11:12:45 METALLURGICAL TECHNICIAN CPT-84700 Venipuncture Draw Fee 09:53:33 METALLURGICAL TECHNICIAN CPT-77449 Venipuncture Draw Fee 11:53:51 METALLURGICAL TECHNICIAN CPT-30352 Venipuncture Draw Fee 10:33:50 METALLURGICAL TECHNICIAN CPT-45589 Venipuncture Draw Fee 10:05:01 METALLURGICAL TECHNICIAN CPT-87757 Venipuncture Draw Fee 14:32:52 METALLURGICAL TECHNICIAN CPT-83626 Venipuncture Draw Fee 09:46:13 METALLURGICAL TECHNICIAN CPT-75905 Venipuncture Draw Fee 11:34:27 METALLURGICAL TECHNICIAN CPT-63900 Venipuncture Draw Fee 13:17:16 METALLURGICAL TECHNICIAN CPT-51837 Venipuncture Draw Fee 12:05:39 CDT CPT-23087 Venipuncture Draw Fee 12:49:12 CDT CPT-93874 Venipuncture Draw Fee 12:37:18 CDT CPT-38935 Venipuncture Draw Fee 10:57:11 CDT CPT-82280 Venipuncture Draw Fee 13:47:40 CDT CPT-57017 Venipuncture Draw Fee 10:02:17 CDT CPT-77956 TB Tubersol 17:32:32 CDT CPT-OV Office Visit 16:21:53 CDT CPT-OV Office Visit 15:49:22 CDT CPT-OV Office Visit 17:16:31 CDT CPT-OV Office Visit 10:43:31 CDT
--- OUTSIDE RECORDS SUMMARY | 2019-02-09 12:02 | XMS REPORT | Clinical Summary ---
Author Author Admin, Florecita Munoz Organization [facility] [employer] Address Unknown Phone Unavailable Allergies, Adverse Reactions, [...] Sebaceous cyst, scalp 706.2 Resolved Kylie Yokum [employer] Sebaceous cyst Cervical lymphadenopathy, anterior, left 785.6 Resolv ed Kylie Yokum [employer] Enlargement of lymph nodes Need for prophylactic vaccination and inoculation against in fluenza V04.81 Resolved Adam Yates MD Need for prophylactic vaccination and inoculation against influenza Preventive health care V70.0 Resolved Kylie Yoku m [employer] Routine general medical examination at a health care facility Thyroid nodule, left 241.0 Active Kylie Yokum A PRN Nontoxic uninodular goiter Screening mammogram V76.12 Resolved Kylie Yokum A PRN Other screening mammogram Mandy 706.2 Resolved Kylie Yokum [employer] Sebaceous cyst Colon cancer, ascending 153.6 Resolved Kylie Yok um [employer] Malignant neoplasm of ascending colon Foot pain, left 729.5 Resolved Kylie Yokum [employer] Pain in limb Splinter 919.6 Resolved Kylie Yokum [employer] Superficial foreign body (splinter) of other, multiple, and unspecified sites, without major open wound and without mention of infection Rash 782.1 Resolved Kylie Yokum [employer] Rash and other nonspecific skin eruption Cyst 706.2 Resolved Kylie Yokum [employer] Sebaceous cyst Body Mass Index 23.0-23.9 Adult Active Kylie Yokum [employer] Body Mass Index between 19-24, adult Unspecified fall, initial encounter E888.9 Inactive Kylie Holt [employer] Unspecified fall Eye pain, left 379.91 Inactive Kylie Holt [employer] Pain in or around eye Pharyngitis, acute [...] RIGHT LOWER QUADRANT ICD-789.03 Inactive Kina Joshua [employer] ADENOCARCINOMA, COLON, 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 Dick Yates MD ABDOMINAL PAIN, GENERALIZED ICD-789.07 Inactive Hope Benavidez MD PhD FEVER UNSPECIFIED ICD-780.60 Inactive Hope cohn MD PhD UNSPECIFIED VENOUS INSUFFICIENCY ICD-459.81 [place] ctive Adam Yates MD ADENOCARCINOMA, 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 Inac tive Hope Benavidez MD PhD Hyperkalemia ICD-276.7 Inactive Hope Benavidez MD PhD GERD ICD-530.81 Inactive Kylie Yanet [employer] 2015 Health maintenance exam ICD-V70.0 Inactive Adolfo Yates MD Anemia ICD-285.9 Inactive Kylie Yokum [employer] 07/24 Hypomagnesemia ICD-275.2 Inactive Kylie Yokum [employer] Weakness ICD-780.79 Inactive Hope Benavidez MD P [...] cyst, scalp ICD-706.2 Inactive Tracy shubham Yokum [employer] Cervical lymphadenopathy, anterior, left ICD-785.6 Inactive Kylie Yokum [employer] Need for prophylactic vaccination and inoculation against in fluenza ICD-V04.81 Inactive Adam Yates MD Preventive health care ICD-V70.0 Inactive Ka thi Yokum [employer]IVER Screening mammogram ICD-V76.12 Inactive Kylie Yokum [employer]IVER Mandy ICD-706.2 Inactive Kylie Yokum [employer]IVER 2017/ 06/13 Colon cancer, ascending ICD-153.6 Inactive K umang Holt [employer] Foot pain, left ICD-729.5 Inactive Kylie Holt [employer] Splinter ICD-919.6 Inactive Kylie Holt [employer] 2017 Rash ICD-782.1 Inactive Kylie Lundum [employer] 07/25 Cyst ICD-706.2 Inactive Kylie Holt [employer]IVER 08/11 Unspecified fall, initial encounter ICD-E888.9 Inactive Kylie Holt [employer] Eye pain, left ICD-379.91 Inactive Kylie Holt [employer] Medication List Medication Instructions Start Date Stop Date Generic Name NDC Status Provider Patient Instruction VOLTAREN 1 % TRANSDERMAL GEL apply 2 grams q 6-8 hour to left arm as needed for pain DICLOFENAC SODIUM 36852120928 Active Kylie Holt APR N Active IMODIUM A-D 2 MG ORAL TABLET 1 tablet twice a day LOPERAMIDE HCL 66385708517 Active Kylie Holt APRN Active COQ10 100 MG ORAL CAPSULE 1 daily COENZYME Q10 963823 54599 Active LETY Nation Active VITAMIN D3 2000 UNIT ORAL CAPSULE Melaleuca-One daily CHOLECALCIFEROL 03921582134 Active Kylie Holt APRN Active PROBIOTIC DAILY ORAL CAPSULE Take one daily PROBIO TIC PRODUCT 48211050746 Active Kylie Holt APRN Active IRON 325 (65 Fe) MG ORAL TABLET 1 every other day FERROUS SULFATE 39497150536 No Longer Active Kylie Holt APRN Active FLORANEX ORAL PACKET 1 pack three times daily, for bowel health LACTOBACILLUS 85758825317 No Longer Active Kylie Holt APRN Active LOMOTIL 2.5-0.025 MG ORAL TABLET 1 tab by mouth prn 20 23/10/23 DIPHENOXYLATE-ATROPINE 07528227954 No Longer Active 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 and thur. PROPRANOLOL HCL 89725173916 No Longer Active Hope Benavidez MD PhD A ctive VITAMIN D3 4000 IU 1 tab 3 times daily VITAMIN D3 4000 IU No Longer Active Hope Benavidez MD PhD Active BACTRIM DS 800-160 MG ORAL TABLET 1 pill by mouth twice claudio y, for UTI SULFAMETHOXAZOLE-TRIMETHOPRIM 78088798872 No Longer Active Hope Benavidez MD PhD Active PROLIA 60 MG/ML SUBCUTANEOUS SOLUTION 1 shot every 6 months for osteoprosis DENOSUMAB 60412105422 Active Hope Benavidez MD PhD Active CALCIUM + D + K 750-500-40 MG-UNT-MCG ORAL TABLET 1 tab by [facility] twice daily CALCIUM-VITAMIN D-VITAMIN K 62101776001 Active Hope valdez MD PhD Active DAILY VALUE MULTIVITAMIN ORAL TABLET 1 tab by mouth twice daily 201 05/16/14 MULTIPLE VITAMIN 85821502573 Active Hope Benavidez MD PhD Acti ve FISH OIL 306 MG CAPS 1 tab by mouth three times daily OMEGA-3 FATTY ACIDS 03693506969 Active Hope Benavidez MD PhD Active LUTEIN 10 MG ORAL TABLET 1 tab daily LUTEIN 36775782 408 Active Hope Benavidez MD PhD Active TRIAMTERENE-HCTZ 37.5-25 MG ORAL TABLET 1 tab by mouth daily 10/22 TRIAMTERENE-HCTZ 49466556667 Active Kylie Holt [employer] Active CYCLOBENZAPRINE HCL 10 MG ORAL TABLET 1 tablet by mout h three times daily as needed for headaches CYCLOBENZAPRINE HCL 05906834703 No Longer Active Adam Yates MD Active OMEPRAZOLE 20 MG ORAL CAPSULE DELAYED RELEASE 1 tablet by mo [facility] daily for GERD OMEPRAZOLE 89554212248 No Longer Active Adam Yates MD Active ZOFRAN 8 MG ORAL TABLET 1 tab by mouth every 12 hours prn 4 ONDANSETRON HCL 75034962893 No Longer Active Adam Yates MD Active PHENADOZ 25 MG RECTAL SUPPOSITORY 1 every 4 hrs. PRN 2 PROMETHAZINE HCL 54987686238 No Longer Active Adam Yates MD A ctive POTASSIUM CHLORIDE 20 MEQ ORAL PACKET by mouth twice a day prn 2 POTASSIUM CHLORIDE 49427099985 No Longer Active Adam Carpenter MD Active PROMETHAZINE HCL 25 MG ORAL TABLET 1 Q. 4 hr. PRN PROMETHAZINE HCL 37003640590 No Longer Active Adam Yates MD Active INNOPRAN XL 120 MG ORAL CAPSULE EXTENDED RELEASE 24 HO UR Take one by mouth daily PROPRANOLOL HCL SR BEADS 87892816127 No Longer Active Adam Yates MD Active FLAGYL 500 MG ORAL TABLET 1 pill by mouth three times daily, for diarrhea METRONIDAZOLE 55881409124 No Longer Active Hope landers MD PhD Active DYAZIDE 37.5-25 MG ORAL CAPSULE 1 qd TRIA MTERENE-HCTZ 83385543103 No Longer Active Hope Benavidez MD PhD Active PROZAC 20 MG ORAL CAPSULE 1 q d FLUOXETINE HCL 60028625527 No Longer Active Hope Benavidez MD PhD Active SIMVASTATIN 40 MG ORAL TABLET 1 qd SIMVAS TATIN 80501320284 No Longer Active Adam Yates MD Active MELOXICAM 15 MG ORAL TABLET 1 qd MELOXICAM 73783283277 No Longer Active Adam Yates MD Active EXCEDRIN EXTRA STRENGTH 250-250-65 MG ORAL TABLET 1-2 q6h AL N headache [id number] 77346912571 Active Hope Benavidez MD PhD Active FLAGYL 500 MG ORAL TABLET 1 qid METRONIDAZOL E 86697503741 No Longer Active Adam Yates MD Active LEVAQUIN 750 MG ORAL TABLET 1 qd LEVOFLOXAC IN 11803053375 No Longer Active Adam Yates MD Active ADULT ASPIRIN LOW STRENGTH 81 MG ORAL TABLET DISINTEGRATING 1 qd ASPIRIN 80401361028 Active Hope Benavidez MD PhD Active LEVAQUIN 750 MG ORAL TABLET 1 qd LEVAQUIN 750 MG ORAL TABLET 448369 LEVOFLOXACIN Inactive FLAGYL 500 MG ORAL TABLET 1 qid FLAGYL 500 MG ORAL TABLET 689253 METRONIDAZOLE Inactive MELOXICAM 15 MG ORAL TABLET 1 qd MELOXICAM 15 MG ORAL TABLET 842512 MELOXICAM Inactive SIMVASTATIN 40 MG ORAL TABLET 1 qd SIMVASTATIN 40 MG ORAL TABLET 165329 SIMVASTATIN Inactive PROZAC 20 MG ORAL CAPSULE 1 q d PROZAC 20 MG ORAL CAPSULE 893345 FLUOXETINE HCL Inactive DYAZIDE 37.5-25 MG ORAL CAPSULE 1 qd 5 DYAZIDE 37.5-25 MG ORAL CAPSULE 597269 TRIAMTERENE-HCTZ Inactive INNOPRAN XL 120 MG ORAL CAPSULE EXTENDED RELEASE 24 HO UR Take one by mouth daily INNOPRAN XL 120 MG ORAL CAPSULE EXTENDED RELEASE 24 HOUR PROPRANOLOL HCL SR BEADS Inactive PROMETHAZINE HCL 25 MG ORAL TABLET 1 Q. 4 hr. PRN 2013 PROMETHAZINE HCL 25 MG ORAL TABLET 675859 PROMETHAZINE HCL Inactive POTASSIUM CHLORIDE 20 MEQ ORAL PACKET by mouth twice a day prn 2 POTASSIUM CHLORIDE 20 MEQ ORAL PACKET 7729935 POTASSIUM CHLORIDE Inactive PHENADOZ 25 MG RECTAL SUPPOSITORY 1 every 4 hrs. PRN 2 PHENADOZ 25 MG RECTAL SUPPOSITORY 632519 PROMETHAZINE HCL Inactive ZOFRAN 8 MG ORAL TABLET 1 tab by mouth every 12 hours prn 4 ZOFRAN 8 MG ORAL TABLET 757645 ONDANSETRON HCL Inactive OMEPRAZOLE 20 MG ORAL CAPSULE DELAYED RELEASE 1 tablet by mo uth daily for GERD OMEPRAZOLE 20 MG ORAL CAPSULE DELAYED RELEASE 19 8051 OMEPRAZOLE Inactive CYCLOBENZAPRINE HCL 10 MG ORAL TABLET 1 tablet by mout h three times daily as needed for headaches CYCLOBENZAPRINE HCL 10 MG ORAL TABLET 573370 CYCLOBENZAPRINE HCL Inactive VITAMIN D3 4000 IU 1 tab 3 times daily VITAMIN D3 4000 IU Inactive PROPRANOLOL HCL 80 MG ORAL TABLET 1 tab tue. and thur. PROPRANOLOL HCL 80 MG ORAL TABLET 011689 PROPRANOLOL HCL Inacti ve CYANOCOBALAMIN 1000 MCG/ML INJECTION SOLUTION 1 injection ev ruben 2 weeks CYANOCOBALAMIN 1000 MCG/ML INJECTION SOLUTION 30 9594 CYANOCOBALAMIN Inactive MAGNESIUM GLUCONATE 250 MG ORAL TABLET 1 tab tid 20 23/10/23 MAGNESIUM GLUCONATE 250 MG ORAL TABLET 705429 MAGNESIUM GLUCONATE Inactive LOMOTIL 2.5-0.025 MG ORAL TABLET 1 tab by mouth prn 20 23/10/23 LOMOTIL 2.5-0.025 MG ORAL TABLET 6221662 DIPHENOXYLATE-ATROPINE Inac tive FLORANEX ORAL PACKET 1 pack three times daily, for bowel health FLORANEX ORAL PACKET 07546537885 LACTOBACILLUS Inactive IRON 325 (65 Fe) MG ORAL TABLET 1 every other day 2015 IRON 325 (65 Fe) MG ORAL TABLET 566147 FERROUS SULFATE Inactive FLAGYL 500 MG ORAL TABLET 1 pill by mouth three times daily, for diarrhea FLAGYL 500 MG ORAL TABLET 541755 METRONIDAZOLE I nactive BACTRIM DS 800-160 MG ORAL TABLET 1 pill by mouth twice claudio y, for UTI BACTRIM DS 800-160 MG ORAL TABLET 846637 SULFAMETHOXAZOLE-TRIMETHOPRIM Inactive Advance Directives Directive Description Start [...] ... - Chemistry sodium, serum 141 mmol/L 096-384 7720/01/10 potassium, serum 3.7 mmol/L 3.5-5.2 chloride, serum 101 mmol/L 98-107 carbon dioxide, venous blood 31.0 mmol/L 21.0-32 .0 blood glucose 96 mg/dL 65-95 calcium, serum 9.5 mg/dL 8.5-10.1 urea nitrogen, blood 21 mg/dL 7-18 creatinine, serum 1.40 mg/dL 0.60-1.30 Estimated Glomerular Filtration Rate (calc) 39 (?) mL/min/1.73m2 = OR > 60 mL/min cholesterol, serum 211 mg/dL 530-641 7588/01/10 triglyceride, serum, fasting 77 mg/dL 30-200 HDL [...] - Chem istry sodium, serum 142 mmol/L 225-633 0503/04/19 carbon dioxide, venous blood 30.2 mmol/L 21.0-32 [...] - Chelle radha sodium, serum 142 mmol/L 757-356 8865/11/02 potassium, serum 3.4 mmol/L 3.5-5.2 chloride, serum [...] mg/dL Encounters Code Encounter Date Provider Facility CPT-52033 [id number] Vst-Est Level III 14:29:19 CDT Fiorella Holt [facility] [facility] [place] CPT-67139 Level 2 Est. Patient 14:58:26 CDT Kylie Lund [facility] [place] CPT-79716 Level 3 Est. Patient 08:15:24 [employer] HOUSE WORKER Kylie Lund [facility] [place] CPT-01541 Level 2 Est. Patient 14:27:16 [employer] HOUSE WORKER Kylie Lund [facility] [place] CPT-43888 Level 3 Est. Patient 17:54:48 CDT Kylie Lund [facility] [place] CPT-40037 Level 3 Est. Patient 16:26:30 CDT Kinachrista blackmon [facility] [place] CPT-57416 Level 3 New Patient 16:22:01 [employer]ASH HOUSE WORKER Adam Yates MD [facility] CPT-59401 Level 4 Est. Patient 17:00:48 CDT Kylie Lund [facility] [place] CPT-24699 Level 3 Est. Patient 13:15:54 CDT Kylie Lund [facility] CPT-97328 Level 3 Est. Patient 09:10:11 CDT Kylie Kevon [facility] CPT-05357 Level 4 Est. Patient 12:08:30 WASH HOUSE WORKER Hope cohn MD PhD [facility] CPT-89869 Level 4 Est. Patient 19:08:42 WASH HOUSE WORKER Hope cohn MD [facility] CPT-03198 Level 4 Est. Patient 20:04:51 CDT Hope cohn MD PhD [facility] CPT-23009 Level 3 New Patient 01:46:11 [employer]ASH HOUSE WORKER Hope landers MD PhD [facility] Procedures Code Procedure Name Date Entry Date Standard Desc ription CPT-97067 Sono Soft Tissue Head and Neck - XRAY US E ONLY 11:56:06 [employer] WORK[employer] CPT-48959 Abx/Therapy Injection 09:40:08 [employer]SE WORKER CPT-J0897 Prolia 60 mg 09:40:08 [employer] HOUSE WORKER CPT-47704 First Vx - Ix admin for Medicare patients 02/08 10:02:45 CDT CPT-35974 Fluzone Quadrivalent Intramuscular Suspe nsion 0.5 ML 10:02:45 CDT CPT-45028 Magnesium - LAB USE ONLY 09:41:00 CDT 12/09 CPT-22176 Renal Panel - LAB USE ONLY 09:41:00 CDT 201 09/17/01 CPT-10986 Venipuncture Draw Fee 09:41:00 CDT CPT-94628 Calcium - LAB USE ONLY 17:25:11 CDT CPT-J0897 Prolia 60 mg 15:10:59 CDT CPT-70673 Abx/Therapy Injection 15:10:59 CDT CPT-G0439 [facility] Annual Wellness Exam 14:29:19 CDT CPT-76558 Venipuncture Draw Fee 10:59:04 CDT CPT-07134 CMP - LAB USE ONLY 10:59:04 CDT CPT-83860 CBC with Diff - LAB USE ONLY 10:59:03 CDT 2 CPT-J0897 Prolia 60 mg 15:46:54 [employer] HOUSE WORKER CPT-89106 Abx/Therapy Injection 15:46:54 [employer] HOUSE WORKER CPT-01670 Microalbumin - LAB USE ONLY 09:41:32 WASH HOUSE WORKER 20 23/01/15 CPT-28691 Free T4 - LAB USE ONLY 09:41:32 W[employer] HOUSE WORKER CPT-80359 TSH - LAB USE ONLY 09:41:32 [employer] HOUSE WORKER CPT-26289 BMP - LAB USE ONLY 09:41:32 WASH HOUSE WORKER CPT-99310 Venipuncture Draw Fee 09:41:32 WASH HOUSE WORKER CPT-20143 First Vx - Ix admin for Medicare patients 11:19:30 CDT CPT-93607 Fluzone High-Dose Intramuscular Suspension 12/07 11:19:30 CDT CPT-J0897 Prolia 60 mg 14:55:42 CDT CPT-16670 Abx/Therapy Injection 14:55:42 CDT CPT-56073 Bone Density - XRAY USE ONLY 10:27:12 CDT 2 CPT-G0439 Subsequent Annual Wellness Exam 17:54:53 CDT CPT-29390 Foot, left, comp min 3V - XRAY USE ONLY 12:22:49 CDT CPT-G0009 Administration of Pneumococcal Vaccine 3 12:18:00 CDT CPT-78674 Pneumovax 23 Injection Injectable 25 MCG /0.5ML 12:18:00 CDT CPT-J0897 Prolia 60 mg 14:14:16 [employer] HOUSE WORKER CPT-40553 Abx/Therapy Injection 14:14:15 W[employer] HOUSE WORKER CPT-37500 Lipid - LAB USE ONLY 10:01:52 WASH HOUSE WORKER 2 CPT-06029 Calcium - LAB USE ONLY 10:01:51 W[employer] HOUSE WORKER CPT-96989 Venipuncture Draw Fee 10:01:51 WASH HOUSE WORKER CPT-LR Lesion Removal 16:22:01 WASH HOUSE WORKER CPT-22520 TSH - LAB USE ONLY 14:26:02 CDT CPT-70974 CMP - LAB USE ONLY 14:26:01 CDT CPT-55394 CBC with Diff - LAB USE ONLY 14:26:01 CDT 2 CPT-98180 Venipuncture Draw Fee 14:26:01 CDT CPT-04672 First Vx - Ix admin for Medicare patients 13:27:08 CDT CPT-55588 Fluzone High-Dose Intramuscular Suspension 11/26 13:27:08 CDT CPT-G0438 Initial Annual Wellness Exam 14:19:57 CD T CPT-G0009 Administration of Pneumococcal Vaccine 9 11:36:25 CDT CPT-49643 Prevnar 13 Intramuscular Suspension 1 1:36:25 CDT CPT-46001 Prevnar 13 Intramuscular Suspension 1 0:40:58 CDT CPT-J0897 Prolia 60 mg 10:37:16 CDT CPT-03295 Abx/Therapy Injection 10:37:16 CDT CPT-J0897 Prolia 60 mg 16:09:34 W[employer] HOUSE WORKER CPT-J0897 Prolia 60 mg 11:10:35 W[employer] HOUSE WORKER CPT-00106 Abx/Therapy Injection 11:10:35 WASH HOUSE WORKER CPT-000 Give Appropriate Flu Vaccine 17:01:15 WASH HOUSE WORKER 2 CPT-92282 Fluzone High Dose (65+) 15:03:08 WASH HOUSE WORKER 02/15 CPT-71854 Immunization Single Admin 15:03:08 WASH HOUSE WORKER 2014 CPT-OV Office Visit 15:58:06 CDT CPT-J0897 Prolia 60 mg 08:45:38 CDT CPT-16278 Abx/Therapy Injection 08:45:38 CDT CPT-J3420 Vitamin B12 1000mcg (Cyanocobalamin) 09:26:20 WASH HOUSE WORKER CPT-09981 Abx/Therapy Injection 09:26:20 WASH HOUSE WORKER CPT-J3420 Vitamin B12 1000mcg (Cyanocobalamin) 09:44:40 WASH HOUSE WORKER CPT-12997 Abx/Therapy Injection 09:44:40 WASH HOUSE WORKER CPT-J3420 Vitamin B12 1000mcg (Cyanocobalamin) 09:15:54 WASH HOUSE WORKER CPT-94934 Abx/Therapy Injection 09:15:54 WASH HOUSE WORKER CPT-J3420 Vitamin B12 1000mcg (Cyanocobalamin) 09:46:44 WASH HOUSE WORKER CPT-55042 Abx/Therapy Injection 09:46:44 WASH HOUSE WORKER CPT-J3420 Vitamin B12 1000mcg (Cyanocobalamin) 09:47:34 WASH HOUSE WORKER CPT-08110 Abx/Therapy Injection 09:47:34 WASH HOUSE WORKER CPT-J3420 Vitamin B12 1000mcg (Cyanocobalamin) 14:35:50 WASH HOUSE WORKER CPT-J3420 Vitamin B12 1000mcg (Cyanocobalamin) 09:25:05 WASH HOUSE WORKER CPT-43189 Abx/Therapy Injection 09:25:05 WASH HOUSE WORKER CPT-G0008 Administration of Influenza Virus Vaccine 13:36:47 CDT CPT-12532 Fluzone High-Dose Intramuscular Suspension 11/15 13:36:47 CDT CPT-J0897 Prolia 60 mg 08:50:41 CDT CPT-21369 Abx/Therapy Injection 08:50:41 CDT CPT-66586 Bone Density 12:06:12 CDT CPT-77235 Bone Density 08:54:40 CDT CPT-OV Office Visit 15:37:02 CDT CPT-07622 Postop F/U Visit 15:47:49 CDT CPT-24771 Postop F/U Visit 15:21:02 CDT [facility]-High 07:52:27 CDT 20 20/06/01 CPT-15375 Venipuncture Draw Fee 13:51:18 CDT CPT-98722 Venipuncture Draw Fee 10:14:55 WASH HOUSE WORKER CPT-65762 Venipuncture Draw Fee 13:39:45 WASH HOUSE WORKER CPT-OV Office Visit 15:11:22 WASH HOUSE WORKER CPT-73044 Venipuncture Draw Fee 09:20:49 WASH HOUSE WORKER CPT-05628 Venipuncture Draw Fee 16:52:15 WASH HOUSE WORKER CPT-06411 Venipuncture Draw Fee 10:37:24 WASH HOUSE WORKER CPT-03180 Venipuncture Draw Fee 08:21:21 WASH HOUSE WORKER CPT-29610 Venipuncture Draw Fee 08:30:20 WASH HOUSE WORKER CPT-05491 Venipuncture Draw Fee 14:53:21 WASH HOUSE WORKER CPT-42108 Venipuncture Draw Fee 09:40:56 WASH HOUSE WORKER CPT-53314 Venipuncture Draw Fee 10:30:47 WASH HOUSE WORKER CPT-92679 Venipuncture Draw Fee 10:46:17 WASH HOUSE WORKER CPT-07513 Venipuncture Draw Fee 11:12:45 WASH HOUSE WORKER CPT-10452 Venipuncture Draw Fee 09:53:33 WASH HOUSE WORKER CPT-32525 Venipuncture Draw Fee 11:53:51 WASH HOUSE WORKER CPT-68057 Venipuncture Draw Fee 10:33:50 WASH HOUSE WORKER CPT-71710 Venipuncture Draw Fee 10:05:01 WASH HOUSE WORKER CPT-76800 Venipuncture Draw Fee 14:32:52 WASH HOUSE WORKER CPT-82149 Venipuncture Draw Fee 09:46:13 WASH HOUSE WORKER CPT-68722 Venipuncture Draw Fee 11:34:27 WASH HOUSE WORKER CPT-93550 Venipuncture Draw Fee 13:17:16 WASH HOUSE WORKER CPT-97654 Venipuncture Draw Fee 12:05:39 CDT CPT-06513 Venipuncture Draw Fee 12:49:12 CDT CPT-04429 Venipuncture Draw Fee 12:37:18 CDT CPT-52903 Venipuncture Draw Fee 10:57:11 CDT CPT-25641 Venipuncture Draw Fee 13:47:40 CDT CPT-24695 Venipuncture Draw Fee 10:02:17 CDT CPT-71416 TB Tubersol 17:32:32 CDT CPT-OV Office Visit 16:21:53 CDT CPT-OV Office Visit 15:49:22 CDT CPT-OV Office Visit 17:16:31 CDT CPT-OV Office Visit 10:43:31 CDT
--- OUTSIDE RECORDS SUMMARY | 2019-02-09 12:02 | XMS REPORT | Clinical Summary ---
Author Author Renaldo, Florecita Munoz Organization [facility] [employer] Address Unknown Phone Unavailable Allergies, Adverse Reactions, [...] PhD Hyperpotassemia GERD 530.81 Resolved Kylie Yokum PNEUMATIC TOOL REPAIRER Esophageal reflux Health maintenance exam V70.0 Resolved Adolfo Yates MD Routine general medical examination at a health care facility Anemia 285.9 Resolved Kylie Yanet PNEUMATIC TOOL REPAIRER Anemia, unspecified Personal history of malignant neoplasm of large intestine V10.05 Active Adam Yates MD Personal history of malignant neoplasm of large intestine Hypomagnesemia 275.2 Resolved Kylie Yanet PNEUMATIC TOOL REPAIRER Disorders of magnesium metabolism Weakness 780.79 Resolved [...] postmenopausal status (age-related) (natural) Diarrhea 787.91 Inactive oHpe Benavidez MD PhD Diarrhea Diarrhea, functional 564.5 [...] Sebaceous cyst, scalp 706.2 Resolved Kylie Yokum PNEUMATIC TOOL REPAIRER Sebaceous cyst Cervical lymphadenopathy, anterior, left 785.6 Resolv ed Kylie Yokum PNEUMATIC TOOL REPAIRER Enlargement of lymph nodes Need for prophylactic vaccination and inoculation against in fluenza V04.81 Resolved Adam Yates MD Need for prophylactic vaccination and inoculation against influenza Preventive health care V70.0 Resolved Kylie Escalonaku m PNEUMATIC TOOL REPAIRER Routine general medical examination at a health care facility Thyroid nodule, left 241.0 Active Kylie Yokum A PRN Nontoxic uninodular goiter Screening mammogram V76.12 Resolved Kylie Yokum A PRN Other screening mammogram Mandy 706.2 Resolved Kylie Yokum PNEUMATIC TOOL REPAIRER Sebaceous cyst Colon cancer, ascending 153.6 Resolved Kylie Yok um PNEUMATIC TOOL REPAIRER Malignant neoplasm of ascending colon Foot pain, left 729.5 Resolved Kylie Yokum PNEUMATIC TOOL REPAIRER Pain in limb Splinter 919.6 Resolved Kylie Yokum PNEUMATIC TOOL REPAIRER Superficial foreign body (splinter) of other, multiple, and unspecified sites, without major open wound and without mention of infection Rash 782.1 Resolved Kylie Yokum PNEUMATIC TOOL REPAIRER Rash and other nonspecific skin eruption Cyst 706.2 Resolved Kylie Yokum PNEUMATIC TOOL REPAIRER Sebaceous cyst Body Mass Index 23.0-23.9 Adult Active Kylie Yokum PNEUMATIC TOOL REPAIRER Body Mass Index between 19-24, adult Unspecified fall, initial encounter E888.9 Inactive Kylie Holt PNEUMATIC TOOL REPAIRER Unspecified fall Eye pain, left 379.91 Inactive Kylie Holt PNEUMATIC TOOL REPAIRER Pain in or around eye Pharyngitis, acute [...] RIGHT LOWER QUADRANT ICD-789.03 Inactive Kina Joshua PNEUMATIC TOOL REPAIRER ADENOCARCINOMA, COLON, 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 Dick Yates MD ABDOMINAL PAIN, GENERALIZED ICD-789.07 Inactive Hope Benavidez MD PhD FEVER UNSPECIFIED ICD-780.60 Inactive Hope cohn MD PhD UNSPECIFIED VENOUS INSUFFICIENCY ICD-459.81 Elda ctive Adam Yates MD ADENOCARCINOMA, 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 Inac tive Hope Benavidez MD PhD Hyperkalemia ICD-276.7 Inactive Hope Benavidez MD PhD GERD ICD-530.81 Inactive Kylie Holt PNEUMATIC TOOL REPAIRER 2015 Health maintenance exam ICD-V70.0 Inactive Adolfo Yates MD Anemia ICD-285.9 Inactive Kylie Yokum PNEUMATIC TOOL REPAIRER 07/24 Hypomagnesemia ICD-275.2 Inactive Kylie Yokum PNEUMATIC TOOL REPAIRER Weakness ICD-780.79 Inactive Hope Benavidez MD P [...] cyst, scalp ICD-706.2 Inactive Tracy shubham Yokum PNEUMATIC TOOL REPAIRER Cervical lymphadenopathy, anterior, left ICD-785.6 Inactive Kylie Yokum PNEUMATIC TOOL REPAIRER Need for prophylactic vaccination and inoculation against in fluenza ICD-V04.81 Inactive Adam Yates MD Preventive health care ICD-V70.0 Inactive Ka thi Yokum PNEUMATIC TOOL REPAIRER Screening mammogram ICD-V76.12 Inactive Kylie Yokum PNEUMATIC TOOL REPAIRER Mandy ICD-706.2 Inactive Kylie Yokum PNEUMATIC TOOL REPAIRER 07/20 Colon cancer, ascending ICD-153.6 Inactive Bravo Holt PNEUMATIC TOOL REPAIRER Foot pain, left ICD-729.5 Inactive Kylie Holt PNEUMATIC TOOL REPAIRER Splinter ICD-919.6 Inactive Kylie Holt PNEUMATIC TOOL REPAIRER 2017 Rash ICD-782.1 Inactive Kylie Lundum PNEUMATIC TOOL REPAIRER 07/25 Cyst ICD-706.2 Inactive Kylie Holt PNEUMATIC TOOL REPAIRER 08/11 Unspecified fall, initial encounter ICD-E888.9 Inactive Kylie Holt PNEUMATIC TOOL REPAIRER Eye pain, left ICD-379.91 Inactive Kylie Holt PNEUMATIC TOOL REPAIRER Medication List Medication Instructions Start Date Stop Date Generic Name NDC Status Provider Patient Instruction VOLTAREN 1 % TRANSDERMAL GEL apply 2 grams q 6-8 hour to left arm as needed for pain DICLOFENAC SODIUM 21816802520 Active Kylie Holt APR N Active IMODIUM A-D 2 MG ORAL TABLET 1 tablet twice a day LOPERAMIDE HCL 08846076539 Active Kylie Holt APRN Active COQ10 100 MG ORAL CAPSULE 1 daily COENZYME Q10 613144 72484 Active LETY Nation Active VITAMIN D3 2000 UNIT ORAL CAPSULE Melaleuca-One daily CHOLECALCIFEROL 51686327778 Active Kylie Holt APRN Active PROBIOTIC DAILY ORAL CAPSULE Take one daily PROBIO TIC PRODUCT 93632091256 Active Kylie Holt APRN Active IRON 325 (65 Fe) MG ORAL TABLET 1 every other day FERROUS SULFATE 08838575314 No Longer Active Kylie Holt APRN Active FLORANEX ORAL PACKET 1 pack three times daily, for bowel health LACTOBACILLUS 00224642956 No Longer Active Kylie Holt APRN Active LOMOTIL 2.5-0.025 MG ORAL TABLET 1 tab by mouth prn 20 23/10/23 DIPHENOXYLATE-ATROPINE 85736840556 No Longer Active Kylie Yokum PNEUMATIC TOOL REPAIRER Active MAGNESIUM GLUCONATE 250 MG ORAL TABLET 1 tab tid 23/10/23 MAGNESIUM GLUCONATE 07339184292 No Longer Active Kylie Yokum PNEUMATIC TOOL REPAIRER Active CYANOCOBALAMIN 1000 MCG/ML INJECTION SOLUTION 1 injection ev ruben 2 weeks CYANOCOBALAMIN 76772843470 No Longer Active Kylie Yok um PNEUMATIC TOOL REPAIRER Active ATENOLOL 25 MG ORAL TABLET 1/2 pill by mouth daily, fo r headaches, blood pressure ATENOLOL 41086365181 Active Kylie Yokum PNEUMATIC TOOL REPAIRER Active PROPRANOLOL HCL 80 MG ORAL TABLET 1 tab tue. and thur. PROPRANOLOL HCL 19257718120 No Longer Active Hope Benavidez MD PhD A ctive VITAMIN D3 4000 IU 1 tab 3 times daily VITAMIN D3 4000 IU No Longer Active Hope Benavidez MD PhD Active BACTRIM DS 800-160 MG ORAL TABLET 1 pill by mouth twice claudio y, for UTI SULFAMETHOXAZOLE-TRIMETHOPRIM 43261580750 No Longer Active Hope Benavidez MD PhD Active PROLIA 60 MG/ML SUBCUTANEOUS SOLUTION 1 shot every 6 months for osteoprosis DENOSUMAB 40575306110 Active Hope Benavidez MD PhD Active CALCIUM + D + K 750-500-40 MG-UNT-MCG ORAL TABLET 1 tab by m [facility] twice daily CALCIUM-VITAMIN D-VITAMIN K 67495823733 Active Hope valdez MD PhD Active DAILY VALUE MULTIVITAMIN ORAL TABLET 1 tab by mouth twice daily 201 05/16/14 MULTIPLE VITAMIN 39880919040 Active Hope Benavidez MD PhD Acti ve FISH OIL 306 MG CAPS 1 tab by mouth three times daily OMEGA-3 FATTY ACIDS 14843815397 Active Hope Benavidez MD PhD Active LUTEIN 10 MG ORAL TABLET 1 tab daily LUTEIN 80377757 408 Active Hope Benavidez MD PhD Active TRIAMTERENE-HCTZ 37.5-25 MG ORAL TABLET 1 tab by mouth daily 10/22 TRIAMTERENE-HCTZ 61445952957 Active Kylie Holt PNEUMATIC TOOL REPAIRER Active CYCLOBENZAPRINE HCL 10 MG ORAL TABLET 1 tablet by mout three times daily as needed for headaches CYCLOBENZAPRINE HCL 51235165234 No Longer Active Adam Yates MD Active OMEPRAZOLE 20 MG ORAL CAPSULE DELAYED RELEASE 1 tablet [facility] daily for GERD OMEPRAZOLE 50474693725 No Longer Active Adam Yates MD Active ZOFRAN 8 MG ORAL TABLET 1 tab by mouth every 12 hours prn 4 ONDANSETRON HCL 87891817020 No Longer Active Adam Yates MD Active PHENADOZ 25 MG RECTAL SUPPOSITORY 1 every 4 hrs. PRN 2 PROMETHAZINE HCL 60547721376 No Longer Active Adam Yates MD A ctive POTASSIUM CHLORIDE 20 MEQ ORAL PACKET by mouth twice a day prn 2 POTASSIUM CHLORIDE 38890182972 No Longer Active Adam Carpentre MD Active PROMETHAZINE HCL 25 MG ORAL TABLET 1 Q. 4 hr. PRN PROMETHAZINE HCL 15037715939 No Longer Active Adam Yates MD Active INNOPRAN XL 120 MG ORAL CAPSULE EXTENDED RELEASE 24 HO UR Take one by mouth daily PROPRANOLOL HCL SR BEADS 43286122738 No Longer Active Adam Yates MD Active FLAGYL 500 MG ORAL TABLET 1 pill by mouth three times daily, for diarrhea METRONIDAZOLE 06338972572 No Longer Active Hope landers MD PhD Active DYAZIDE 37.5-25 MG ORAL CAPSULE 1 qd TRIA MTERENE-HCTZ 39135785053 No Longer Active Hope Benavidez MD PhD Active PROZAC 20 MG ORAL CAPSULE 1 q d FLUOXETINE HCL 53290982949 No Longer Active Hope Benavidez MD PhD Active SIMVASTATIN 40 MG ORAL TABLET 1 qd SIMVAS TATIN 70460874604 No Longer Active Adam Yates MD Active MELOXICAM 15 MG ORAL TABLET 1 qd MELOXICAM 62348615523 No Longer Active Adam Yates MD Active EXCEDRIN EXTRA STRENGTH 250-250-65 MG ORAL TABLET 1-2 q6h [place] N headache [id number] 85765239827 Active Hope Benavidez MD PhD Active FLAGYL 500 MG ORAL TABLET 1 qid METRONIDAZOL E 10231868141 No Longer Active Adam Yates MD Active LEVAQUIN 750 MG ORAL TABLET 1 qd LEVOFLOXAC IN 42101239720 No Longer Active Adam Yates MD Active ADULT ASPIRIN LOW STRENGTH 81 MG ORAL TABLET DISINTEGRATING 1 qd ASPIRIN 31870094589 Active Hope Benavidez MD PhD Active LEVAQUIN 750 MG ORAL TABLET 1 qd LEVAQUIN 750 MG ORAL TABLET 918905 LEVOFLOXACIN Inactive FLAGYL 500 MG ORAL TABLET 1 qid FLAGYL 500 MG ORAL TABLET 702168 METRONIDAZOLE Inactive MELOXICAM 15 MG ORAL TABLET 1 qd MELOXICAM 15 MG ORAL TABLET 393207 MELOXICAM Inactive SIMVASTATIN 40 MG ORAL TABLET 1 qd SIMVASTATIN 40 MG ORAL TABLET 809766 SIMVASTATIN Inactive PROZAC 20 MG ORAL CAPSULE 1 q d PROZAC 20 MG ORAL CAPSULE 056678 FLUOXETINE HCL Inactive DYAZIDE 37.5-25 MG ORAL CAPSULE 1 qd 5 DYAZIDE 37.5-25 MG ORAL CAPSULE 374361 TRIAMTERENE-HCTZ Inactive INNOPRAN XL 120 MG ORAL CAPSULE EXTENDED RELEASE 24 HO UR Take one by mouth daily INNOPRAN XL 120 MG ORAL CAPSULE EXTENDED RELEASE 24 HOUR PROPRANOLOL HCL SR BEADS Inactive PROMETHAZINE HCL 25 MG ORAL TABLET 1 Q. 4 hr. PRN 2013 PROMETHAZINE HCL 25 MG ORAL TABLET 986707 PROMETHAZINE HCL Inactive POTASSIUM CHLORIDE 20 MEQ ORAL PACKET by mouth twice a day prn 2 POTASSIUM CHLORIDE 20 MEQ ORAL PACKET 0739577 POTASSIUM CHLORIDE Inactive PHENADOZ 25 MG RECTAL SUPPOSITORY 1 every 4 hrs. PRN 2 PHENADOZ 25 MG RECTAL SUPPOSITORY 073186 PROMETHAZINE HCL Inactive ZOFRAN 8 MG ORAL TABLET 1 tab by mouth every 12 hours prn 4 ZOFRAN 8 MG ORAL TABLET 535144 ONDANSETRON HCL Inactive OMEPRAZOLE 20 MG ORAL CAPSULE DELAYED RELEASE 1 tablet by mo uth daily for GERD OMEPRAZOLE 20 MG ORAL CAPSULE DELAYED RELEASE 19 8051 OMEPRAZOLE Inactive CYCLOBENZAPRINE HCL 10 MG ORAL TABLET 1 tablet by mout h three times daily as needed for headaches CYCLOBENZAPRINE HCL 10 MG ORAL TABLET 332612 CYCLOBENZAPRINE HCL Inactive VITAMIN D3 4000 IU 1 tab 3 times daily VITAMIN D3 4000 IU Inactive PROPRANOLOL HCL 80 MG ORAL TABLET 1 tab tue. and thur. PROPRANOLOL HCL 80 MG ORAL TABLET 196482 PROPRANOLOL HCL Inacti ve CYANOCOBALAMIN 1000 MCG/ML INJECTION SOLUTION 1 injection ev ruben 2 weeks CYANOCOBALAMIN 1000 MCG/ML INJECTION SOLUTION 30 9594 CYANOCOBALAMIN Inactive MAGNESIUM GLUCONATE 250 MG ORAL TABLET 1 tab tid 23/10/23 MAGNESIUM GLUCONATE 250 MG ORAL TABLET 513579 MAGNESIUM GLUCONATE Inactive LOMOTIL 2.5-0.025 MG ORAL TABLET 1 tab by mouth prn 20 23/10/23 LOMOTIL 2.5-0.025 MG ORAL TABLET 6651794 DIPHENOXYLATE-ATROPINE Inac tive FLORANEX ORAL PACKET 1 pack three times daily, for bowel health FLORANEX ORAL PACKET 47904281263 LACTOBACILLUS Inactive IRON 325 (65 Fe) MG ORAL TABLET 1 every other day 2015 IRON 325 (65 Fe) MG ORAL TABLET 062309 FERROUS SULFATE Inactive FLAGYL 500 MG ORAL TABLET 1 pill by mouth three times daily, for diarrhea FLAGYL 500 MG ORAL TABLET 406116 METRONIDAZOLE I nactive BACTRIM DS 800-160 MG ORAL TABLET 1 pill by mouth twice claudio y, for UTI BACTRIM DS 800-160 MG ORAL TABLET 346949 SULFAMETHOXAZOLE-TRIMETHOPRIM Inactive Advance Directives Directive Description Start [...] ... - Chemistry sodium, serum 141 mmol/L 222-002 4057/01/10 potassium, serum 3.7 mmol/L 3.5-5.2 chloride, serum 101 mmol/L 98-107 carbon dioxide, venous blood 31.0 mmol/L 21.0-32 .0 blood glucose 96 mg/dL 65-95 calcium, serum 9.5 mg/dL 8.5-10.1 urea nitrogen, blood 21 mg/dL 7-18 creatinine, serum 1.40 mg/dL 0.60-1.30 Estimated Glomerular Filtration Rate (calc) 39 (?) mL/min/1.73m2 = OR > 60 mL/min cholesterol, serum 211 mg/dL 868-816 8559/01/10 triglyceride, serum, fasting 77 mg/dL 30-200 HDL [...] mmol/L 21.0-32 .0 sodium, serum 142 mmol/L 433-299 0407/04/19 urea nitrogen, blood 23 mg/dL 7-18 creatinine, serum 1.33 mg/dL 0.60-1.30 alanine aminotransferase (SGPT), serum 27 U/L 12-78 aspartate aminotransferase (SGOT), serum 24 U/L 15-37 calcium, serum 9.4 mg/dL 8.5-10.1 bilirubin, serum, total 0.80 mg/dL 0.00-1.00 blood glucose 97 mg/dL 65-110 Lab Report: Renal Panel, Magnesium - Chelle radha sodium, serum 142 mmol/L 751-332 9921/11/02 potassium, serum 3.4 mmol/L 3.5-5.2 chloride, serum [...] mg/dL Encounters Code Encounter Date Provider Facility CPT-76423 [id number] Vst-Est Level III 14:29:19 CDT Fiorella Holt [facility] [place] [facility] [place] CPT-99733 Level 2 Est. Patient 14:58:26 CDT Kylie Lund [facility] [place] CPT-34122 Level 3 Est. Patient 08:15:24 CARGO SERVICES COORDINATOR Kylie Lund [facility] [place] [facility] [place] CPT-88811 Level 2 Est. Patient 14:27:16 CARGO SERVICES COORDINATOR Kylie Lund [facility] [place] [facility] [place] CPT-64964 Level 3 Est. Patient 17:54:48 CDT Kylie Lund [facility] [place] [facility] [place] CPT-91506 Level 3 Est. Patient 16:26:30 CDT Kinachrista blackmon [facility] [place] CPT-03822 Level 3 New Patient 16:22:01 CARGO SERVICES COORDINATOR Adam Yates MD [facility] CPT-76789 Level 4 Est. Patient 17:00:48 CDT Kylie Lund [facility] [place] CPT-83676 Level 3 Est. Patient 13:15:54 CDT Kylie Lund [facility] CPT-64421 Level 3 Est. Patient 09:10:11 CDT Kylie Kevon [facility] CPT-12834 Level 4 Est. Patient 12:08:30 CARGO SERVICES COORDINATOR Hope cohn MD [facility] CPT-79828 Level 4 Est. Patient 19:08:42 CARGO SERVICES COORDINATOR Hope cohn MD PhD [facility] CPT-86001 Level 4 Est. Patient 20:04:51 CDT Hope cohn MD PhD [facility] CPT-10257 Level 3 New Patient 01:46:11 CARGO SERVICES COORDINATOR Hope landers MD PhD [facility] Procedures Code Procedure Name Date Entry Date Standard Desc ription CPT-76106 Sono Soft Tissue Head and Neck - XRAY US E ONLY 11:56:06 CARGO SERVICES COORDINATOR CPT-17499 Abx/Therapy Injection 09:40:08 CARGO SERVICES COORDINATOR CPT-J0897 Prolia 60 mg 09:40:08 CARGO SERVICES COORDINATOR CPT-75610 First Vx - Ix admin for Medicare patients 02/08 10:02:45 CDT CPT-58939 Fluzone Quadrivalent Intramuscular Suspe nsion 0.5 ML 10:02:45 CDT CPT-28385 Magnesium - LAB USE ONLY 09:41:00 CDT 12/09 CPT-70791 Renal Panel - LAB USE ONLY 09:41:00 CDT 201 09/17/01 CPT-71977 Venipuncture Draw Fee 09:41:00 CDT CPT-26639 Calcium - LAB USE ONLY 17:25:11 CDT CPT-J0897 Prolia 60 mg 15:10:59 CDT CPT-05511 Abx/Therapy Injection 15:10:59 CDT CPT-G0439 [facility] Annual Wellness Exam 14:29:19 CDT CPT-35741 Venipuncture Draw Fee 10:59:04 CDT CPT-23026 CMP - LAB USE ONLY 10:59:04 CDT CPT-68489 CBC with Diff - LAB USE ONLY 10:59:03 CDT 2 CPT-J0897 Prolia 60 mg 15:46:54 CARGO SERVICES COORDINATOR CPT-65199 Abx/Therapy Injection 15:46:54 CARGO SERVICES COORDINATOR CPT-99353 Microalbumin - LAB USE ONLY 09:41:32 CARGO SERVICES COORDINATOR 20 23/01/15 CPT-82959 Free T4 - LAB USE ONLY 09:41:32 CARGO SERVICES COORDINATOR CPT-30028 TSH - LAB USE ONLY 09:41:32 CARGO SERVICES COORDINATOR CPT-31890 BMP - LAB USE ONLY 09:41:32 CARGO SERVICES COORDINATOR CPT-57304 Venipuncture Draw Fee 09:41:32 CARGO SERVICES COORDINATOR CPT-36771 First Vx - Ix admin for Medicare patients 11:19:30 CDT CPT-53625 Fluzone High-Dose Intramuscular Suspension 12/07 11:19:30 CDT CPT-J0897 Prolia 60 mg 14:55:42 CDT CPT-43070 Abx/Therapy Injection 14:55:42 CDT CPT-62667 Bone Density - XRAY USE ONLY 10:27:12 CDT 2 CPT-G0439 Subsequent Annual Wellness Exam 17:54:53 CDT CPT-96218 Foot, left, comp min 3V - XRAY USE ONLY 12:22:49 CDT CPT-G0009 Administration of Pneumococcal Vaccine 3 12:18:00 CDT CPT-75329 Pneumovax 23 Injection Injectable 25 MCG /0.5ML 12:18:00 CDT CPT-J0897 Prolia 60 mg 14:14:16 CARGO SERVICES COORDINATOR CPT-48125 Abx/Therapy Injection 14:14:15 CARGO SERVICES COORDINATOR CPT-94964 Lipid - LAB USE ONLY 10:01:52 CARGO SERVICES COORDINATOR 2 CPT-93886 Calcium - LAB USE ONLY 10:01:51 CARGO SERVICES COORDINATOR CPT-26224 Venipuncture Draw Fee 10:01:51 CARGO SERVICES COORDINATOR CPT-LR Lesion Removal 16:22:01 CARGO SERVICES COORDINATOR CPT-51621 TSH - LAB USE ONLY 14:26:02 CDT CPT-00193 CMP - LAB USE ONLY 14:26:01 CDT CPT-80701 CBC with Diff - LAB USE ONLY 14:26:01 CDT 2 CPT-68183 Venipuncture Draw Fee 14:26:01 CDT CPT-94230 First Vx - Ix admin for Medicare patients 13:27:08 CDT CPT-28860 Fluzone High-Dose Intramuscular Suspension 11/26 13:27:08 CDT CPT-G0438 Initial Annual Wellness Exam 14:19:57 CD T CPT-G0009 Administration of Pneumococcal Vaccine 9 11:36:25 CDT CPT-11357 Prevnar 13 Intramuscular Suspension 1 1:36:25 CDT CPT-36175 Prevnar 13 Intramuscular Suspension 1 0:40:58 CDT CPT-J0897 Prolia 60 mg 10:37:16 CDT CPT-96066 Abx/Therapy Injection 10:37:16 CDT CPT-J0897 Prolia 60 mg 16:09:34 CARGO SERVICES COORDINATOR CPT-J0897 Prolia 60 mg 11:10:35 CARGO SERVICES COORDINATOR CPT-88417 Abx/Therapy Injection 11:10:35 CARGO SERVICES COORDINATOR CPT-000 Give Appropriate Flu Vaccine 17:01:15 CARGO SERVICES COORDINATOR 2 CPT-46231 Fluzone High Dose (65+) 15:03:08 CARGO SERVICES COORDINATOR 02/15 CPT-50193 Immunization Single Admin 15:03:08 CARGO SERVICES COORDINATOR 2014 CPT-OV Office Visit 15:58:06 CDT CPT-J0897 Prolia 60 mg 08:45:38 CDT CPT-88329 Abx/Therapy Injection 08:45:38 CDT CPT-J3420 Vitamin B12 1000mcg (Cyanocobalamin) 09:26:20 CARGO SERVICES COORDINATOR CPT-01178 Abx/Therapy Injection 09:26:20 CARGO SERVICES COORDINATOR CPT-J3420 Vitamin B12 1000mcg (Cyanocobalamin) 09:44:40 CARGO SERVICES COORDINATOR CPT-93668 Abx/Therapy Injection 09:44:40 CARGO SERVICES COORDINATOR CPT-J3420 Vitamin B12 1000mcg (Cyanocobalamin) 09:15:54 CARGO SERVICES COORDINATOR CPT-11174 Abx/Therapy Injection 09:15:54 CARGO SERVICES COORDINATOR CPT-J3420 Vitamin B12 1000mcg (Cyanocobalamin) 09:46:44 CARGO SERVICES COORDINATOR CPT-52632 Abx/Therapy Injection 09:46:44 CARGO SERVICES COORDINATOR CPT-J3420 Vitamin B12 1000mcg (Cyanocobalamin) 09:47:34 CARGO SERVICES COORDINATOR CPT-68182 Abx/Therapy Injection 09:47:34 CARGO SERVICES COORDINATOR CPT-J3420 Vitamin B12 1000mcg (Cyanocobalamin) 14:35:50 CARGO SERVICES COORDINATOR CPT-J3420 Vitamin B12 1000mcg (Cyanocobalamin) 09:25:05 CARGO SERVICES COORDINATOR CPT-56334 Abx/Therapy Injection 09:25:05 CARGO SERVICES COORDINATOR CPT-G0008 Administration of Influenza Virus Vaccine 13:36:47 CDT CPT-52792 Fluzone High-Dose Intramuscular Suspension 11/15 13:36:47 CDT CPT-J0897 Prolia 60 mg 08:50:41 CDT CPT-16002 Abx/Therapy Injection 08:50:41 CDT CPT-94623 Bone Density 12:06:12 CDT CPT-70151 Bone Density 08:54:40 CDT CPT-OV Office Visit 15:37:02 CDT CPT-15168 Postop F/U Visit 15:47:49 CDT CPT-74863 Postop F/U Visit 15:21:02 CDT CPT-[facility] Transitional Care Mgmt-High 07:52:27 CDT 20 20/06/01 CPT-32802 Venipuncture Draw Fee 13:51:18 CDT CPT-55393 Venipuncture Draw Fee 10:14:55 CARGO SERVICES COORDINATOR CPT-76935 Venipuncture Draw Fee 13:39:45 CARGO SERVICES COORDINATOR CPT-OV Office Visit 15:11:22 CARGO SERVICES COORDINATOR CPT-98508 Venipuncture Draw Fee 09:20:49 CARGO SERVICES COORDINATOR CPT-51201 Venipuncture Draw Fee 16:52:15 CARGO SERVICES COORDINATOR CPT-84910 Venipuncture Draw Fee 10:37:24 CARGO SERVICES COORDINATOR CPT-60554 Venipuncture Draw Fee 08:21:21 CARGO SERVICES COORDINATOR CPT-35921 Venipuncture Draw Fee 08:30:20 CARGO SERVICES COORDINATOR CPT-62943 Venipuncture Draw Fee 14:53:21 CARGO SERVICES COORDINATOR CPT-85222 Venipuncture Draw Fee 09:40:56 CARGO SERVICES COORDINATOR CPT-23743 Venipuncture Draw Fee 10:30:47 CARGO SERVICES COORDINATOR CPT-18533 Venipuncture Draw Fee 10:46:17 CARGO SERVICES COORDINATOR CPT-88704 Venipuncture Draw Fee 11:12:45 CARGO SERVICES COORDINATOR CPT-29183 Venipuncture Draw Fee 09:53:33 CARGO SERVICES COORDINATOR CPT-59640 Venipuncture Draw Fee 11:53:51 CARGO SERVICES COORDINATOR CPT-35663 Venipuncture Draw Fee 10:33:50 CARGO SERVICES COORDINATOR CPT-68621 Venipuncture Draw Fee 10:05:01 CARGO SERVICES COORDINATOR CPT-58464 Venipuncture Draw Fee 14:32:52 CARGO SERVICES COORDINATOR CPT-86018 Venipuncture Draw Fee 09:46:13 CARGO SERVICES COORDINATOR CPT-05950 Venipuncture Draw Fee 11:34:27 CARGO SERVICES COORDINATOR CPT-49550 Venipuncture Draw Fee 13:17:16 CARGO SERVICES COORDINATOR CPT-51934 Venipuncture Draw Fee 12:05:39 CDT CPT-50914 Venipuncture Draw Fee 12:49:12 CDT CPT-26449 Venipuncture Draw Fee 12:37:18 CDT CPT-46578 Venipuncture Draw Fee 10:57:11 CDT CPT-31981 Venipuncture Draw Fee 13:47:40 CDT CPT-06303 Venipuncture Draw Fee 10:02:17 CDT CPT-08186 TB Tubersol 17:32:32 CDT CPT-OV Office Visit 16:21:53 CDT CPT-OV Office Visit 15:49:22 CDT CPT-OV Office Visit 17:16:31 CDT CPT-OV Office Visit 10:43:31 CDT
--- OUTSIDE RECORDS SUMMARY | 2019-02-09 12:03 | XMS REPORT | Clinical Summary ---
Author Author Renaldo, Florecita Munoz Organization [facility] [employer] Address Unknown Phone Unavailable Allergies, Adverse Reactions, [...] PhD Hyperpotassemia GERD 530.81 Resolved Kylie Yokum FUND RAISER Esophageal reflux Health maintenance exam V70.0 Resolved Adolfo Yates MD Routine general medical examination at a health care facility Anemia 285.9 Resolved Kylie Yanet FUND RAISER Anemia, unspecified Personal history of malignant neoplasm of large intestine V10.05 Active Adam Yates MD Personal history of malignant neoplasm of large intestine Hypomagnesemia 275.2 Resolved Kylie Yanet FUND RAISER Disorders of magnesium metabolism Weakness 780.79 Resolved [...] Sebaceous cyst, scalp 706.2 Resolved Kylie Yokum FUND RAISER Sebaceous cyst Cervical lymphadenopathy, anterior, left 785.6 Resolv ed Kylie Yokum FUND RAISER Enlargement of lymph nodes Need for prophylactic vaccination and inoculation against in fluenza V04.81 Resolved Adam Yates MD Need for prophylactic vaccination and inoculation against influenza Preventive health care V70.0 Resolved Kylie Escalonaku m FUND RAISER Routine general medical examination at a health care facility Thyroid nodule, left 241.0 Active Kylie Yokum A PRN Nontoxic uninodular goiter Screening mammogram V76.12 Resolved Kylie Yokum A PRN Other screening mammogram Mandy 706.2 Resolved Kylie Yokum FUND RAISER Sebaceous cyst Colon cancer, ascending 153.6 Resolved Kylie Yok um FUND RAISER Malignant neoplasm of ascending colon Foot pain, left 729.5 Resolved Kylie Yokum FUND RAISER Pain in limb Splinter 919.6 Resolved Kylie Yokum FUND RAISER Superficial foreign body (splinter) of other, multiple, and unspecified sites, without major open wound and without mention of infection Rash 782.1 Resolved Kylie Yokum FUND RAISER Rash and other nonspecific skin eruption Cyst 706.2 Resolved Kylie Yokum FUND RAISER Sebaceous cyst Body Mass Index 23.0-23.9 Adult Active Kylie Yokum FUND RAISER Body Mass Index between 19-24, adult Unspecified fall, initial encounter E888.9 Inactive Kylie Holt FUND RAISER Unspecified fall Eye pain, left 379.91 Inactive Kylie Holt FUND RAISER Pain in or around eye Pharyngitis, acute [...] RIGHT LOWER QUADRANT ICD-789.03 Inactive Kina Joshua FUND RAISER ADENOCARCINOMA, COLON, 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 Dick Yates MD ABDOMINAL PAIN, GENERALIZED ICD-789.07 Inactive Hope Benavidez MD PhD FEVER UNSPECIFIED ICD-780.60 Inactive Hope cohn MD PhD UNSPECIFIED VENOUS INSUFFICIENCY ICD-459.81 Elda ctive Adam Yates MD ADENOCARCINOMA, 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 Inac tive Hope Benavidez MD PhD Hyperkalemia ICD-276.7 Inactive Hope Benavidez MD PhD GERD ICD-530.81 Inactive Kylie Holt FUND RAISER 2015 Health maintenance exam ICD-V70.0 Inactive Adolfo Yates MD Anemia ICD-285.9 Inactive Kylie Yokum FUND RAISER 07/24 Hypomagnesemia ICD-275.2 Inactive Kylie Yokum [employer]D RAISER Weakness ICD-780.79 Inactive Hope Benavidez MD P [...] cyst, scalp ICD-706.2 Inactive Tracy shubham Yokum FUND RAISER Cervical lymphadenopathy, anterior, left ICD-785.6 Inactive Kylie Yokum FUND RAISER Need for prophylactic vaccination and inoculation against in fluenza ICD-V04.81 Inactive Adam Yates MD Preventive health care ICD-V70.0 Inactive Ka thi Yokum FUND RAISER Screening mammogram ICD-V76.12 Inactive Kylie Yokum FUND RAISER Mandy ICD-706.2 Inactive Klyie Yokum FUND RAISER 07/20 Colon cancer, ascending ICD-153.6 Inactive Bravo Holt FUND RAISER Foot pain, left ICD-729.5 Inactive Kylie Holt FUND RAISER Splinter ICD-919.6 Inactive Kylie Holt FUND RAISER 2017 Rash ICD-782.1 Inactive Kylie Lundum FUND RAISER 07/25 Cyst ICD-706.2 Inactive Kylie Holt FUND RAISER 08/11 Unspecified fall, initial encounter ICD-E888.9 Inactive Kylie Holt FUND RAISER Eye pain, left ICD-379.91 Inactive Kylie Holt FUND RAISER Medication List Medication Instructions Start Date Stop Date Generic Name NDC Status Provider Patient Instruction VOLTAREN 1 % TRANSDERMAL GEL apply 2 grams q 6-8 hour to left arm as needed for pain DICLOFENAC SODIUM 24794112562 Active Kylie Holt APR N Active IMODIUM A-D 2 MG ORAL TABLET 1 tablet twice a day LOPERAMIDE HCL 62219218575 Active Kylie Holt APRN Active COQ10 100 MG ORAL CAPSULE 1 daily COENZYME Q10 173617 35242 Active LETY Nation Active VITAMIN D3 2000 UNIT ORAL CAPSULE Melaleuca-One daily CHOLECALCIFEROL 36731589056 Active Kylie Holt APRN Active PROBIOTIC DAILY ORAL CAPSULE Take one daily PROBIO TIC PRODUCT 85938941492 Active Kylie Holt APRN Active IRON 325 (65 Fe) MG ORAL TABLET 1 every other day FERROUS SULFATE 45649034366 No Longer Active Kylie Holt APRN Active FLORANEX ORAL PACKET 1 pack three times daily, for bowel health LACTOBACILLUS 59531112769 No Longer Active Kylie Holt APRN Active LOMOTIL 2.5-0.025 MG ORAL TABLET 1 tab by mouth prn 20 23/10/23 DIPHENOXYLATE-ATROPINE 18386405651 No Longer Active Kylie Yokum FUND RAISER Active MAGNESIUM GLUCONATE 250 MG ORAL TABLET 1 tab tid 23/10/23 MAGNESIUM GLUCONATE 04263253635 No Longer Active Kylie Yokum FUND RAISER Active CYANOCOBALAMIN 1000 MCG/ML INJECTION SOLUTION 1 injection ev ruben 2 weeks CYANOCOBALAMIN 90008391280 No Longer Active Kylie Yok um FUND RAISER Active ATENOLOL 25 MG ORAL TABLET 1/2 pill by mouth daily, fo r headaches, blood pressure ATENOLOL 28178086175 Active Kylie Yokum FUND RAISER Active PROPRANOLOL HCL 80 MG ORAL TABLET 1 tab tue. and thur. PROPRANOLOL HCL 38667273716 No Longer Active Hope Benavidez MD PhD A ctive VITAMIN D3 4000 IU 1 tab 3 times daily VITAMIN D3 4000 IU No Longer Active Hope Benavidez MD PhD Active BACTRIM DS 800-160 MG ORAL TABLET 1 pill by mouth twice claudio y, for UTI SULFAMETHOXAZOLE-TRIMETHOPRIM 91378535574 No Longer Active Hope Benavidez MD PhD Active PROLIA 60 MG/ML SUBCUTANEOUS SOLUTION 1 shot every 6 months for osteoprosis DENOSUMAB 46897788122 Active Hope Benavidez MD PhD Active CALCIUM + D + K 750-500-40 MG-UNT-MCG ORAL TABLET 1 tab by m [facility] twice daily CALCIUM-VITAMIN D-VITAMIN K 00595978411 Active Hope valdez MD PhD Active DAILY VALUE MULTIVITAMIN ORAL TABLET 1 tab by mouth twice daily 201 05/16/14 MULTIPLE VITAMIN 13268274466 Active Hope Benavidez MD PhD Acti ve FISH OIL 306 MG CAPS 1 tab by mouth three times daily OMEGA-3 FATTY ACIDS 97934751062 Active Hope Benavidez MD PhD Active LUTEIN 10 MG ORAL TABLET 1 tab daily LUTEIN 78409685 408 Active Hope Benavidez MD PhD Active TRIAMTERENE-HCTZ 37.5-25 MG ORAL TABLET 1 tab by mouth daily 10/22 TRIAMTERENE-HCTZ 22168474536 Active Kylie Holt FUND RAISER Active CYCLOBENZAPRINE HCL 10 MG ORAL TABLET 1 tablet by mout three times daily as needed for headaches CYCLOBENZAPRINE HCL 06247634660 No Longer Active Adam Yates MD Active OMEPRAZOLE 20 MG ORAL CAPSULE DELAYED RELEASE 1 tablet by mo [facility] daily for GERD OMEPRAZOLE 52931529594 No Longer Active Adam Yates MD Active ZOFRAN 8 MG ORAL TABLET 1 tab by mouth every 12 hours prn 4 ONDANSETRON HCL 88170893968 No Longer Active Adam Yates MD Active PHENADOZ 25 MG RECTAL SUPPOSITORY 1 every 4 hrs. PRN 2 PROMETHAZINE HCL 16794218737 No Longer Active Adam Yates MD A ctive POTASSIUM CHLORIDE 20 MEQ ORAL PACKET by mouth twice a day prn 2 POTASSIUM CHLORIDE 92374159962 No Longer Active Adam Carpenter MD Active PROMETHAZINE HCL 25 MG ORAL TABLET 1 Q. 4 hr. PRN PROMETHAZINE HCL 94637975980 No Longer Active Adam Yates MD Active INNOPRAN XL 120 MG ORAL CAPSULE EXTENDED RELEASE 24 HO UR Take one by mouth daily PROPRANOLOL HCL SR BEADS 46896856620 No Longer Active Adam Yates MD Active FLAGYL 500 MG ORAL TABLET 1 pill by mouth three times daily, for diarrhea METRONIDAZOLE 25133739363 No Longer Active Hope landers MD PhD Active DYAZIDE 37.5-25 MG ORAL CAPSULE 1 qd TRIA MTERENE-HCTZ 75133328173 No Longer Active Hope Benavidez MD PhD Active PROZAC 20 MG ORAL CAPSULE 1 q d FLUOXETINE HCL 26934088012 No Longer Active Hope Benavidez MD PhD Active SIMVASTATIN 40 MG ORAL TABLET 1 qd SIMVAS TATIN 58888052102 No Longer Active Adam Yates MD Active MELOXICAM 15 MG ORAL TABLET 1 qd MELOXICAM 03685997464 No Longer Active Adam Yates MD Active EXCEDRIN EXTRA STRENGTH 250-250-65 MG ORAL TABLET 1-2 q6h AK N headache [id number] 05813077210 Active Hope Benavidez MD PhD Active FLAGYL 500 MG ORAL TABLET 1 qid METRONIDAZOL E 43526307591 No Longer Active Adam Yates MD Active LEVAQUIN 750 MG ORAL TABLET 1 qd LEVOFLOXAC IN 11876867204 No Longer Active Adam Yates MD Active ADULT ASPIRIN LOW STRENGTH 81 MG ORAL TABLET DISINTEGRATING 1 qd ASPIRIN 22565766285 Active Hope Benavidez MD PhD Active LEVAQUIN 750 MG ORAL TABLET 1 qd LEVAQUIN 750 MG ORAL TABLET 351188 LEVOFLOXACIN Inactive FLAGYL 500 MG ORAL TABLET 1 qid FLAGYL 500 MG ORAL TABLET 462612 METRONIDAZOLE Inactive MELOXICAM 15 MG ORAL TABLET 1 qd MELOXICAM 15 MG ORAL TABLET 653439 MELOXICAM Inactive SIMVASTATIN 40 MG ORAL TABLET 1 qd SIMVASTATIN 40 MG ORAL TABLET 027413 SIMVASTATIN Inactive PROZAC 20 MG ORAL CAPSULE 1 q d PROZAC 20 MG ORAL CAPSULE 687245 FLUOXETINE HCL Inactive DYAZIDE 37.5-25 MG ORAL CAPSULE 1 qd 5 DYAZIDE 37.5-25 MG ORAL CAPSULE 526899 TRIAMTERENE-HCTZ Inactive INNOPRAN XL 120 MG ORAL CAPSULE EXTENDED RELEASE 24 HO UR Take one by mouth daily INNOPRAN XL 120 MG ORAL CAPSULE EXTENDED RELEASE 24 HOUR PROPRANOLOL HCL SR BEADS Inactive PROMETHAZINE HCL 25 MG ORAL TABLET 1 Q. 4 hr. PRN 2013 PROMETHAZINE HCL 25 MG ORAL TABLET 493370 PROMETHAZINE HCL Inactive POTASSIUM CHLORIDE 20 MEQ ORAL PACKET by mouth twice a day prn 2 POTASSIUM CHLORIDE 20 MEQ ORAL PACKET 9185409 POTASSIUM CHLORIDE Inactive PHENADOZ 25 MG RECTAL SUPPOSITORY 1 every 4 hrs. PRN 2 PHENADOZ 25 MG RECTAL SUPPOSITORY 083075 PROMETHAZINE HCL Inactive ZOFRAN 8 MG ORAL TABLET 1 tab by mouth every 12 hours prn 4 ZOFRAN 8 MG ORAL TABLET 994270 ONDANSETRON HCL Inactive OMEPRAZOLE 20 MG ORAL CAPSULE DELAYED RELEASE 1 tablet by mo uth daily for GERD OMEPRAZOLE 20 MG ORAL CAPSULE DELAYED RELEASE 19 8051 OMEPRAZOLE Inactive CYCLOBENZAPRINE HCL 10 MG ORAL TABLET 1 tablet by mout h three times daily as needed for headaches CYCLOBENZAPRINE HCL 10 MG ORAL TABLET 706849 CYCLOBENZAPRINE HCL Inactive VITAMIN D3 4000 IU 1 tab 3 times daily VITAMIN D3 4000 IU Inactive PROPRANOLOL HCL 80 MG ORAL TABLET 1 tab tue. and thur. PROPRANOLOL HCL 80 MG ORAL TABLET 303362 PROPRANOLOL HCL Inacti ve CYANOCOBALAMIN 1000 MCG/ML INJECTION SOLUTION 1 injection ev ruben 2 weeks CYANOCOBALAMIN 1000 MCG/ML INJECTION SOLUTION 30 9594 CYANOCOBALAMIN Inactive MAGNESIUM GLUCONATE 250 MG ORAL TABLET 1 tab tid 23/10/23 MAGNESIUM GLUCONATE 250 MG ORAL TABLET 351180 MAGNESIUM GLUCONATE Inactive LOMOTIL 2.5-0.025 MG ORAL TABLET 1 tab by mouth prn 20 23/10/23 LOMOTIL 2.5-0.025 MG ORAL TABLET 4945699 DIPHENOXYLATE-ATROPINE Inac tive FLORANEX ORAL PACKET 1 pack three times daily, for bowel health FLORANEX ORAL PACKET 31249058529 LACTOBACILLUS Inactive IRON 325 (65 Fe) MG ORAL TABLET 1 every other day 2015 IRON 325 (65 Fe) MG ORAL TABLET 697867 FERROUS SULFATE Inactive FLAGYL 500 MG ORAL TABLET 1 pill by mouth three times daily, for diarrhea FLAGYL 500 MG ORAL TABLET 082612 METRONIDAZOLE I nactive BACTRIM DS 800-160 MG ORAL TABLET 1 pill by mouth twice claudio y, for UTI BACTRIM DS 800-160 MG ORAL TABLET 919078 SULFAMETHOXAZOLE-TRIMETHOPRIM Inactive Advance Directives Directive Description Start [...] ... - Chemistry sodium, serum 141 mmol/L 980-360 3925/01/10 potassium, serum 3.7 mmol/L 3.5-5.2 chloride, serum 101 mmol/L 98-107 carbon dioxide, venous blood 31.0 mmol/L 21.0-32 .0 blood glucose 96 mg/dL 65-95 calcium, serum 9.5 mg/dL 8.5-10.1 urea nitrogen, blood 21 mg/dL 7-18 creatinine, serum 1.40 mg/dL 0.60-1.30 Estimated Glomerular Filtration Rate (calc) 39 (?) mL/min/1.73m2 = OR > 60 mL/min cholesterol, serum 211 mg/dL 831-691 0249/01/10 triglyceride, serum, fasting 77 mg/dL 30-200 HDL [...] - Chem istry sodium, serum 142 mmol/L 746-622 6336/04/19 carbon dioxide, venous blood 30.2 mmol/L 21.0-32 [...] - Chelle radha sodium, serum 142 mmol/L 806-892 7921/11/02 potassium, serum 3.4 mmol/L 3.5-5.2 chloride, serum [...] mg/dL Encounters Code Encounter Date Provider Facility CPT-37160 [id number] Vst-Est Level III 14:29:19 CDT Fiorella Holt [facility] [place] CPT-37360 Level 2 Est. Patient 14:58:26 CDT Kylie Lund [facility] [place] CPT-57706 Level 3 Est. Patient 08:15:24 LAUNDRY SUPERINTENDENT Kylie Lund [facility] [place] CPT-63110 Level 2 Est. Patient 14:27:16 LAUNDRY SUPERINTENDENT Kylie Lund [facility] [place] CPT-53854 Level 3 Est. Patient 17:54:48 CDT Kylie Lund [facility] CPT-75121 Level 3 Est. Patient 16:26:30 CDT Kinachrista blackmon [facility] CPT-26249 Level 3 New Patient 16:22:01 LAUNDRY SUPERINTENDENT Adam Yates MD [facility] CPT-15916 Level 4 Est. Patient 17:00:48 CDT Kylie Lund [facility] CPT-82735 Level 3 Est. Patient 13:15:54 CDT Kylie Lund [facility] CPT-47409 Level 3 Est. Patient 09:10:11 CDT Kylie Kevon [facility] CPT-46984 Level 4 Est. Patient 12:08:30 LAUNDRY SUPERINTENDENT Hope cohn MD [facility] CPT-83775 Level 4 Est. Patient 19:08:42 LAUNDRY SUPERINTENDENT Hope cohn MD PhD [facility] CPT-80934 Level 4 Est. Patient 20:04:51 CDT Hope cohn MD PhD [facility] CPT-84491 Level 3 New Patient 01:46:11 LAUNDRY SUPERINTENDENT Hope landers MD PhD [facility] Procedures Code Procedure Name Date Entry Date Standard Desc ription CPT-84447 Sono Soft Tissue Head and Neck - XRAY US E ONLY 11:56:06 LAUNDRY SUPERINTENDENT CPT-84079 Abx/Therapy Injection 09:40:08 LAUNDRY SUPERINTENDENT CPT-J0897 Prolia 60 mg 09:40:08 LAUNDRY SUPERINTENDENT CPT-18056 First Vx - Ix admin for Medicare patients 02/08 10:02:45 CDT CPT-14311 Fluzone Quadrivalent Intramuscular Suspe nsion 0.5 ML 10:02:45 CDT CPT-06052 Magnesium - LAB USE ONLY 09:41:00 CDT 12/09 CPT-77807 Renal Panel - LAB USE ONLY 09:41:00 CDT 201 09/17/01 CPT-78729 Venipuncture Draw Fee 09:41:00 CDT CPT-38990 Calcium - LAB USE ONLY 17:25:11 CDT CPT-J0897 Prolia 60 mg 15:10:59 CDT CPT-64327 Abx/Therapy Injection 15:10:59 CDT CPT-G0439 [facility] Annual Wellness Exam 14:29:19 CDT CPT-19834 Venipuncture Draw Fee 10:59:04 CDT CPT-42506 CMP - LAB USE ONLY 10:59:04 CDT CPT-60984 CBC with Diff - LAB USE ONLY 10:59:03 CDT 2 CPT-J0897 Prolia 60 mg 15:46:54 LAUNDRY SUPERINTENDENT CPT-12838 Abx/Therapy Injection 15:46:54 LAUNDRY SUPERINTENDENT CPT-65417 Microalbumin - LAB USE ONLY 09:41:32 LAUNDRY SUPERINTENDENT 20 23/01/15 CPT-48683 Free T4 - LAB USE ONLY 09:41:32 LAUNDRY SUPERINTENDENT CPT-26704 TSH - LAB USE ONLY 09:41:32 LAUNDRY SUPERINTENDENT CPT-94954 BMP - LAB USE ONLY 09:41:32 LAUNDRY SUPERINTENDENT CPT-04044 Venipuncture Draw Fee 09:41:32 LAUNDRY SUPERINTENDENT CPT-61107 First Vx - Ix admin for Medicare patients 11:19:30 CDT CPT-30765 Fluzone High-Dose Intramuscular Suspension 12/07 11:19:30 CDT CPT-J0897 Prolia 60 mg 14:55:42 CDT CPT-46961 Abx/Therapy Injection 14:55:42 CDT CPT-47751 Bone Density - XRAY USE ONLY 10:27:12 CDT 2 CPT-G0439 Subsequent Annual Wellness Exam 17:54:53 CDT CPT-16720 Foot, left, comp min 3V - XRAY USE ONLY 12:22:49 CDT CPT-G0009 Administration of Pneumococcal Vaccine 3 12:18:00 CDT CPT-60675 Pneumovax 23 Injection Injectable 25 MCG /0.5ML 12:18:00 CDT CPT-J0897 Prolia 60 mg 14:14:16 LAUNDRY SUPERINTENDENT CPT-33990 Abx/Therapy Injection 14:14:15 LAUNDRY SUPERINTENDENT CPT-92438 Lipid - LAB USE ONLY 10:01:52 LAUNDRY SUPERINTENDENT 2 CPT-76866 Calcium - LAB USE ONLY 10:01:51 LAUNDRY SUPERINTENDENT CPT-51504 Venipuncture Draw Fee 10:01:51 LAUNDRY SUPERINTENDENT CPT-LR Lesion Removal 16:22:01 LAUNDRY SUPERINTENDENT CPT-11504 TSH - LAB USE ONLY 14:26:02 CDT CPT-82837 CMP - LAB USE ONLY 14:26:01 CDT CPT-46883 CBC with Diff - LAB USE ONLY 14:26:01 CDT 2 CPT-43350 Venipuncture Draw Fee 14:26:01 CDT CPT-60638 First Vx - Ix admin for Medicare patients 13:27:08 CDT CPT-27370 Fluzone High-Dose Intramuscular Suspension 11/26 13:27:08 CDT CPT-G0438 Initial Annual Wellness Exam 14:19:57 CD T CPT-G0009 Administration of Pneumococcal Vaccine 9 11:36:25 CDT CPT-44309 Prevnar 13 Intramuscular Suspension 1 1:36:25 CDT CPT-59713 Prevnar 13 Intramuscular Suspension 1 0:40:58 CDT CPT-J0897 Prolia 60 mg 10:37:16 CDT CPT-21917 Abx/Therapy Injection 10:37:16 CDT CPT-J0897 Prolia 60 mg 16:09:34 LAUNDRY SUPERINTENDENT CPT-J0897 Prolia 60 mg 11:10:35 LAUNDRY SUPERINTENDENT CPT-41787 Abx/Therapy Injection 11:10:35 LAUNDRY SUPERINTENDENT CPT-000 Give Appropriate Flu Vaccine 17:01:15 LAUNDRY SUPERINTENDENT 2 CPT-19233 Fluzone High Dose (65+) 15:03:08 LAUNDRY SUPERINTENDENT 02/15 CPT-19173 Immunization Single Admin 15:03:08 LAUNDRY SUPERINTENDENT 2014 CPT-OV Office Visit 15:58:06 CDT CPT-J0897 Prolia 60 mg 08:45:38 CDT CPT-72215 Abx/Therapy Injection 08:45:38 CDT CPT-J3420 Vitamin B12 1000mcg (Cyanocobalamin) 09:26:20 LAUNDRY SUPERINTENDENT CPT-54396 Abx/Therapy Injection 09:26:20 LAUNDRY SUPERINTENDENT CPT-J3420 Vitamin B12 1000mcg (Cyanocobalamin) 09:44:40 LAUNDRY SUPERINTENDENT CPT-93819 Abx/Therapy Injection 09:44:40 LAUNDRY SUPERINTENDENT CPT-J3420 Vitamin B12 1000mcg (Cyanocobalamin) 09:15:54 LAUNDRY SUPERINTENDENT CPT-46099 Abx/Therapy Injection 09:15:54 LAUNDRY SUPERINTENDENT CPT-J3420 Vitamin B12 1000mcg (Cyanocobalamin) 09:46:44 LAUNDRY SUPERINTENDENT CPT-24552 Abx/Therapy Injection 09:46:44 LAUNDRY SUPERINTENDENT CPT-J3420 Vitamin B12 1000mcg (Cyanocobalamin) 09:47:34 LAUNDRY SUPERINTENDENT CPT-28066 Abx/Therapy Injection 09:47:34 LAUNDRY SUPERINTENDENT CPT-J3420 Vitamin B12 1000mcg (Cyanocobalamin) 14:35:50 LAUNDRY SUPERINTENDENT CPT-J3420 Vitamin B12 1000mcg (Cyanocobalamin) 09:25:05 LAUNDRY SUPERINTENDENT CPT-28976 Abx/Therapy Injection 09:25:05 LAUNDRY SUPERINTENDENT CPT-G0008 Administration of Influenza Virus Vaccine 13:36:47 CDT CPT-58559 Fluzone High-Dose Intramuscular Suspension 11/15 13:36:47 CDT CPT-J0897 Prolia 60 mg 08:50:41 CDT CPT-22189 Abx/Therapy Injection 08:50:41 CDT CPT-76119 Bone Density 12:06:12 CDT CPT-63877 Bone Density 08:54:40 CDT CPT-OV Office Visit 15:37:02 CDT CPT-73327 Postop F/U Visit 15:47:49 CDT CPT-45635 Postop F/U Visit 15:21:02 CDT CPT-[facility] Trans[facility] Care Mgmt-High 07:52:27 CDT 20 20/06/01 CPT-37720 Venipuncture Draw Fee 13:51:18 CDT CPT-04338 Venipuncture Draw Fee 10:14:55 LAUNDRY SUPERINTENDENT CPT-49951 Venipuncture Draw Fee 13:39:45 LAUNDRY SUPERINTENDENT CPT-OV Office Visit 15:11:22 LAUNDRY SUPERINTENDENT CPT-19846 Venipuncture Draw Fee 09:20:49 LAUNDRY SUPERINTENDENT CPT-60811 Venipuncture Draw Fee 16:52:15 LAUNDRY SUPERINTENDENT CPT-69476 Venipuncture Draw Fee 10:37:24 LAUNDRY SUPERINTENDENT CPT-14822 Venipuncture Draw Fee 08:21:21 LAUNDRY SUPERINTENDENT CPT-82028 Venipuncture Draw Fee 08:30:20 LAUNDRY SUPERINTENDENT CPT-38519 Venipuncture Draw Fee 14:53:21 LAUNDRY SUPERINTENDENT CPT-85468 Venipuncture Draw Fee 09:40:56 LAUNDRY SUPERINTENDENT CPT-63725 Venipuncture Draw Fee 10:30:47 LAUNDRY SUPERINTENDENT CPT-11583 Venipuncture Draw Fee 10:46:17 LAUNDRY SUPERINTENDENT CPT-10307 Venipuncture Draw Fee 11:12:45 LAUNDRY SUPERINTENDENT CPT-64858 Venipuncture Draw Fee 09:53:33 LAUNDRY SUPERINTENDENT CPT-77229 Venipuncture Draw Fee 11:53:51 LAUNDRY SUPERINTENDENT CPT-93325 Venipuncture Draw Fee 10:33:50 LAUNDRY SUPERINTENDENT CPT-41609 Venipuncture Draw Fee 10:05:01 LAUNDRY SUPERINTENDENT CPT-69223 Venipuncture Draw Fee 14:32:52 LAUNDRY SUPERINTENDENT CPT-71766 Venipuncture Draw Fee 09:46:13 LAUNDRY SUPERINTENDENT CPT-93097 Venipuncture Draw Fee 11:34:27 LAUNDRY SUPERINTENDENT CPT-01224 Venipuncture Draw Fee 13:17:16 LAUNDRY SUPERINTENDENT CPT-15881 Venipuncture Draw Fee 12:05:39 CDT CPT-22145 Venipuncture Draw Fee 12:49:12 CDT CPT-07744 Venipuncture Draw Fee 12:37:18 CDT CPT-98094 Venipuncture Draw Fee 10:57:11 CDT CPT-51779 Venipuncture Draw Fee 13:47:40 CDT CPT-32786 Venipuncture Draw Fee 10:02:17 CDT CPT-48328 TB Tubersol 17:32:32 CDT CPT-OV Office Visit 16:21:53 CDT CPT-OV Office Visit 15:49:22 CDT CPT-OV Office Visit 17:16:31 CDT CPT-OV Office Visit 10:43:31 CDT
--- OUTSIDE RECORDS SUMMARY | 2019-02-09 12:03 | XMS REPORT | Clinical Summary ---
Author Author Admin, Florecita Munoz Organization [facility] Address Unknown Phone Unavailable Allergies, Adverse Reactions, [...] Sebaceous cyst, scalp 706.2 Resolved Kylie Yokum [employer] Sebaceous cyst Cervical lymphadenopathy, anterior, left 785.6 Resolv ed Kylie Yokum [employer] Enlargement of lymph nodes Need for prophylactic vaccination and inoculation against in fluenza V04.81 Resolved Adam Yates MD Need for prophylactic vaccination and inoculation against influenza Preventive health care V70.0 Resolved Kylie Yoku m [employer] Routine general medical examination at a health care facility Thyroid nodule, left 241.0 Active Kylie Yokum A PRN Nontoxic uninodular goiter Screening mammogram V76.12 Resolved Kylie Yokum A PRN Other screening mammogram Mandy 706.2 Resolved Kylie Yokum [employer] Sebaceous cyst Colon cancer, ascending 153.6 Resolved Kylie Yok um [employer] Malignant neoplasm of ascending colon Foot pain, left 729.5 Resolved Kylie Yokum [employer] Pain in limb Splinter 919.6 Resolved Kylie Yokum [employer] Superficial foreign body (splinter) of other, multiple, and unspecified sites, without major open wound and without mention of infection Rash 782.1 Resolved Kylie Yokum [employer] Rash and other nonspecific skin eruption Cyst 706.2 Resolved Kylie Yokum [employer] Sebaceous cyst Body Mass Index 23.0-23.9 Adult Active Klyie Yokum [employer] Body Mass Index between 19-24, adult Unspecified fall, initial encounter E888.9 Inactive Kylie Holt [employer] Unspecified fall Eye pain, left 379.91 Inactive Kylie Holt [employer] Pain in or around eye Pharyngitis, acute [...] RIGHT LOWER QUADRANT ICD-789.03 Inactive Kina Joshua [employer] ADENOCARCINOMA, COLON, 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 Dick Yates MD ABDOMINAL PAIN, GENERALIZED ICD-789.07 Inactive Hope Benavidez MD PhD FEVER UNSPECIFIED ICD-780.60 Inactive Hope cohn MD PhD UNSPECIFIED VENOUS INSUFFICIENCY ICD-459.81 Santo ctive Adam Yates MD ADENOCARCINOMA, 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 Inac tive Hope Benavidez MD PhD Hyperkalemia ICD-276.7 Inactive Hope Benavidez MD PhD GERD ICD-530.81 Inactive Kylie Yanet [employer] 2015 Health maintenance exam ICD-V70.0 Inactive Adolfo Yates MD Anemia ICD-285.9 Inactive Kylie Yokum [employer] 07/24 Hypomagnesemia ICD-275.2 Inactive Kylie Yokum [employer] Weakness ICD-780.79 Inactive Hope Benavidez MD [...] cyst, scalp ICD-706.2 Inactive Tracy shubham Yokum [employer] Cervical lymphadenopathy, anterior, left ICD-785.6 Inactive Kylie Yokum [employer] Need for prophylactic vaccination and inoculation against in fluenza ICD-V04.81 Inactive Adam Yates MD Preventive health care ICD-V70.0 Inactive Ka thi Yokum [employer] Screening mammogram ICD-V76.12 Inactive Kylie Yokum [employer] Mandy ICD-706.2 Inactive Kylie Yokum [employer] 2017/ 06/13 Colon cancer, ascending ICD-153.6 Inactive K umang Holt [employer] Foot pain, left ICD-729.5 Inactive Kylie Holt [employer] Splinter ICD-919.6 Inactive Kylie Holt [employer] 2017 Rash ICD-782.1 Inactive Kylie Lundum [employer] 07/25 Cyst ICD-706.2 Inactive Kylie Holt [employer] 08/11 Unspecified fall, initial encounter ICD-E888.9 Inactive Kylie Holt [employer] Eye pain, left ICD-379.91 Inactive Kylie Holt [employer] Medication List Medication Instructions Start Date Stop Date Generic Name NDC Status Provider Patient Instruction VOLTAREN 1 % TRANSDERMAL GEL apply 2 grams q 6-8 hour to left arm as needed for pain DICLOFENAC SODIUM [id number] Active Kylie Holt APR N Active IMODIUM A-D 2 MG ORAL TABLET 1 tablet twice a day LOPERAMIDE HCL 88597017920 Active Kylie Holt APRN Active COQ10 100 MG ORAL CAPSULE 1 daily COENZYME Q10 383303 65227 Active LETY Nation Active VITAMIN D3 2000 UNIT ORAL CAPSULE Melaleuca-One daily CHOLECALCIFEROL 71835316553 Active Kylie Holt APRN Active PROBIOTIC DAILY ORAL CAPSULE Take one daily PROBIO TIC PRODUCT 98293367297 Active Kylie Holt APRN Active IRON 325 (65 Fe) MG ORAL TABLET 1 every other day FERROUS SULFATE 21130061703 No Longer Active Kylie Holt APRN Active FLORANEX ORAL PACKET 1 pack three times daily, for bowel health LACTOBACILLUS 83655248440 No Longer Active Kylie Holt APRN Active LOMOTIL 2.5-0.025 MG ORAL TABLET 1 tab by mouth prn 20 23/10/23 DIPHENOXYLATE-ATROPINE 07965175698 No Longer Active Kylie Yokum [employer] Active MAGNESIUM GLUCONATE 250 MG ORAL TABLET 1 tab tid 23/10/23 MAGNESIUM GLUCONATE 56889484964 No Longer Active Kylie Yokum [employer] Active CYANOCOBALAMIN 1000 MCG/ML INJECTION SOLUTION 1 injection ev ruben 2 weeks CYANOCOBALAMIN 14012366837 No Longer Active Kylie Yok um [employer] Active ATENOLOL 25 MG ORAL TABLET 1/2 pill by mouth daily, fo r headaches, blood pressure ATENOLOL 22296239294 Active Kylie Yokum [employer] Active PROPRANOLOL HCL 80 MG ORAL TABLET 1 tab tue. and thur. PROPRANOLOL HCL 73062639992 No Longer Active Hope Benavidez MD PhD A ctive VITAMIN D3 4000 IU 1 tab 3 times daily VITAMIN D3 4000 IU No Longer Active Hope Benavidez MD PhD Active BACTRIM DS 800-160 MG ORAL TABLET 1 pill by mouth twice claudio y, for UTI SULFAMETHOXAZOLE-TRIMETHOPRIM 72581765068 No Longer Active Hope Benavidez MD PhD Active PROLIA 60 MG/ML SUBCUTANEOUS SOLUTION 1 shot every 6 months for osteoprosis DENOSUMAB 93466276228 Active Hope Benavidez MD PhD Active CALCIUM + D + K 750-500-40 MG-UNT-MCG ORAL TABLET 1 tab by [facility] twice daily CALCIUM-VITAMIN D-VITAMIN K 65760599956 Active Hope valdez MD PhD Active DAILY VALUE MULTIVITAMIN ORAL TABLET 1 tab by mouth twice daily 201 05/16/14 MULTIPLE VITAMIN 58267008725 Active Hope Benavidez MD PhD Acti ve FISH OIL 306 MG CAPS 1 tab by mouth three times daily OMEGA-3 FATTY ACIDS 55815269172 Active Hope Benavidez MD PhD Active LUTEIN 10 MG ORAL TABLET 1 tab daily LUTEIN 88376598 408 Active Hope Benavidez MD PhD Active TRIAMTERENE-HCTZ 37.5-25 MG ORAL TABLET 1 tab by mouth daily 10/22 TRIAMTERENE-HCTZ 69062652771 Active Kylie Holt [employer] Active CYCLOBENZAPRINE HCL 10 MG ORAL TABLET 1 tablet by mout h three times daily as needed for headaches CYCLOBENZAPRINE HCL 68666223291 No Longer Active Adam Yates MD Active OMEPRAZOLE 20 MG ORAL CAPSULE DELAYED RELEASE 1 tablet by mo [facility] daily for GERD OMEPRAZOLE 15323862686 No Longer Active Adam Yates MD Active ZOFRAN 8 MG ORAL TABLET 1 tab by mouth every 12 hours prn 4 ONDANSETRON HCL 62778984554 No Longer Active Adam Yates MD Active PHENADOZ 25 MG RECTAL SUPPOSITORY 1 every 4 hrs. PRN 2 PROMETHAZINE HCL 73499666682 No Longer Active Adam Yates MD A ctive POTASSIUM CHLORIDE 20 MEQ ORAL PACKET by mouth twice a day prn 2 POTASSIUM CHLORIDE 25273409366 No Longer Active Adam Carpenter MD Active PROMETHAZINE HCL 25 MG ORAL TABLET 1 Q. 4 hr. PRN PROMETHAZINE HCL 57075829143 No Longer Active Adam Yates MD Active INNOPRAN XL 120 MG ORAL CAPSULE EXTENDED RELEASE 24 HO UR Take one by mouth daily PROPRANOLOL HCL SR BEADS 49161136712 No Longer Active Adam Yates MD Active FLAGYL 500 MG ORAL TABLET 1 pill by mouth three times daily, for diarrhea METRONIDAZOLE 51606837324 No Longer Active Hope landers MD PhD Active DYAZIDE 37.5-25 MG ORAL CAPSULE 1 qd TRIA MTERENE-HCTZ 84151301716 No Longer Active Hope Benavidez MD PhD Active PROZAC 20 MG ORAL CAPSULE 1 q d FLUOXETINE HCL 15736340295 No Longer Active Hope Benavidez MD PhD Active SIMVASTATIN 40 MG ORAL TABLET 1 qd SIMVAS TATIN 51098809379 No Longer Active Adam Yates MD Active MELOXICAM 15 MG ORAL TABLET 1 qd MELOXICAM 54104361623 No Longer Active Adam Yates MD Active EXCEDRIN EXTRA STRENGTH 250-250-65 MG ORAL TABLET 1-2 q6h UT N headache [id number] 43517959620 Active Hope Benavidez MD PhD Active FLAGYL 500 MG ORAL TABLET 1 qid METRONIDAZOL E 80927515547 No Longer Active Adam Yates MD Active LEVAQUIN 750 MG ORAL TABLET 1 qd LEVOFLOXAC IN 97593073363 No Longer Active Adam Yates MD Active ADULT ASPIRIN LOW STRENGTH 81 MG ORAL TABLET DISINTEGRATING 1 qd ASPIRIN 77469073502 Active Hope Benavidez MD PhD Active LEVAQUIN 750 MG ORAL TABLET 1 qd LEVAQUIN 750 MG ORAL TABLET 576180 LEVOFLOXACIN Inactive FLAGYL 500 MG ORAL TABLET 1 qid FLAGYL 500 MG ORAL TABLET 028075 METRONIDAZOLE Inactive MELOXICAM 15 MG ORAL TABLET 1 qd MELOXICAM 15 MG ORAL TABLET 713569 MELOXICAM Inactive SIMVASTATIN 40 MG ORAL TABLET 1 qd SIMVASTATIN 40 MG ORAL TABLET 665394 SIMVASTATIN Inactive PROZAC 20 MG ORAL CAPSULE 1 q d PROZAC 20 MG ORAL CAPSULE 455394 FLUOXETINE HCL Inactive DYAZIDE 37.5-25 MG ORAL CAPSULE 1 qd 5 DYAZIDE 37.5-25 MG ORAL CAPSULE 853413 TRIAMTERENE-HCTZ Inactive INNOPRAN XL 120 MG ORAL CAPSULE EXTENDED RELEASE 24 HO UR Take one by mouth daily INNOPRAN XL 120 MG ORAL CAPSULE EXTENDED RELEASE 24 HOUR PROPRANOLOL HCL SR BEADS Inactive PROMETHAZINE HCL 25 MG ORAL TABLET 1 Q. 4 hr. PRN 2013 PROMETHAZINE HCL 25 MG ORAL TABLET 980982 PROMETHAZINE HCL Inactive POTASSIUM CHLORIDE 20 MEQ ORAL PACKET by mouth twice a day prn 2 POTASSIUM CHLORIDE 20 MEQ ORAL PACKET 9406341 POTASSIUM CHLORIDE Inactive PHENADOZ 25 MG RECTAL SUPPOSITORY 1 every 4 hrs. PRN 2 PHENADOZ 25 MG RECTAL SUPPOSITORY 419296 PROMETHAZINE HCL Inactive ZOFRAN 8 MG ORAL TABLET 1 tab by mouth every 12 hours prn 4 ZOFRAN 8 MG ORAL TABLET 089084 ONDANSETRON HCL Inactive OMEPRAZOLE 20 MG ORAL CAPSULE DELAYED RELEASE 1 tablet by mo uth daily for GERD OMEPRAZOLE 20 MG ORAL CAPSULE DELAYED RELEASE 19 8051 OMEPRAZOLE Inactive CYCLOBENZAPRINE HCL 10 MG ORAL TABLET 1 tablet by mout h three times daily as needed for headaches CYCLOBENZAPRINE HCL 10 MG ORAL TABLET 050133 CYCLOBENZAPRINE HCL Inactive VITAMIN D3 4000 IU 1 tab 3 times daily VITAMIN D3 4000 IU Inactive PROPRANOLOL HCL 80 MG ORAL TABLET 1 tab tue. and thur. PROPRANOLOL HCL 80 MG ORAL TABLET 663137 PROPRANOLOL HCL Inacti ve CYANOCOBALAMIN 1000 MCG/ML INJECTION SOLUTION 1 injection ev ruben 2 weeks CYANOCOBALAMIN 1000 MCG/ML INJECTION SOLUTION 30 9594 CYANOCOBALAMIN Inactive MAGNESIUM GLUCONATE 250 MG ORAL TABLET 1 tab tid 20 23/10/23 MAGNESIUM GLUCONATE 250 MG ORAL TABLET 744238 MAGNESIUM GLUCONATE Inactive LOMOTIL 2.5-0.025 MG ORAL TABLET 1 tab by mouth prn 20 23/10/23 LOMOTIL 2.5-0.025 MG ORAL TABLET 7013188 DIPHENOXYLATE-ATROPINE Inac tive FLORANEX ORAL PACKET 1 pack three times daily, for bowel health FLORANEX ORAL PACKET 75815162000 LACTOBACILLUS Inactive IRON 325 (65 Fe) MG ORAL TABLET 1 every other day 2015 IRON 325 (65 Fe) MG ORAL TABLET 413450 FERROUS SULFATE Inactive FLAGYL 500 MG ORAL TABLET 1 pill by mouth three times daily, for diarrhea FLAGYL 500 MG ORAL TABLET 863664 METRONIDAZOLE I nactive BACTRIM DS 800-160 MG ORAL TABLET 1 pill by mouth twice claudio y, for UTI BACTRIM DS 800-160 MG ORAL TABLET 982922 SULFAMETHOXAZOLE-TRIMETHOPRIM Inactive Advance Directives Directive Description Start [...] ... - Chemistry sodium, serum 141 mmol/L 869-388 7519/01/10 potassium, serum 3.7 mmol/L 3.5-5.2 chloride, serum 101 mmol/L 98-107 carbon dioxide, venous blood 31.0 mmol/L 21.0-32 .0 blood glucose 96 mg/dL 65-95 calcium, serum 9.5 mg/dL 8.5-10.1 urea nitrogen, blood 21 mg/dL 7-18 creatinine, serum 1.40 mg/dL 0.60-1.30 Estimated Glomerular Filtration Rate (calc) 39 (?) mL/min/1.73m2 = OR > 60 mL/min cholesterol, serum 211 mg/dL 824-509 9765/01/10 triglyceride, serum, fasting 77 mg/dL 30-200 HDL [...] - Chem istry sodium, serum 142 mmol/L 235-284 9951/04/19 carbon dioxide, venous blood 30.2 mmol/L 21.0-32 [...] - Chelle radha sodium, serum 142 mmol/L 585-714 0509/11/02 potassium, serum 3.4 mmol/L 3.5-5.2 chloride, serum [...] mg/dL Encounters Code Encounter Date Provider Facility CPT-90120 [id number] Vst-Est Level III 14:29:19 CDT Fiorella Holt [facility] [place] CPT-01763 Level 2 Est. Patient 14:58:26 CDT Kylie Lund [facility] [place] CPT-77214 Level 3 Est. Patient 08:15:24 [employer] Kylie Lund [facility] [place] CPT-12315 Level 2 Est. Patient 14:27:16 [employer] Kylie Lund [facility] [place] CPT-63255 Level 3 Est. Patient 17:54:48 CDT Kylie Lund [facility] [place] CPT-61010 Level 3 Est. Patient 16:26:30 CDT Kinachrista blackmon [facility] CPT-41861 Level 3 New Patient 16:22:01 [employer] Adam Yates MD [facility] CPT-31982 Level 4 Est. Patient 17:00:48 CDT Kylie Lund [facility] [place] CPT-41568 Level 3 Est. Patient 13:15:54 CDT Kylie Lund [facility] CPT-16171 Level 3 Est. Patient 09:10:11 CDT Kylie Kevon [facility] CPT-69839 Level 4 Est. Patient 12:08:30 [employer] Hope cohn MD PhD [facility] CPT-12066 Level 4 Est. Patient 19:08:42 [employer] Hope cohn MD [facility] CPT-42175 Level 4 Est. Patient 20:04:51 CDT Hope cohn MD PhD [facility] CPT-54539 Level 3 New Patient 01:46:11 [employer] Hope landers MD PhD [facility] Procedures Code Procedure Name Date Entry Date Standard Desc ription CPT-53318 Sono Soft Tissue Head and Neck - XRAY US E ONLY 11:56:06 [employer] CPT-88956 Abx/Therapy Injection 09:40:08 [employer] CPT-J0897 Prolia 60 mg 09:40:08 [employer] CPT-12459 First Vx - Ix admin for Medicare patients 02/08 10:02:45 CDT CPT-06710 Fluzone Quadrivalent Intramuscular Suspe nsion 0.5 ML 10:02:45 CDT CPT-95102 Magnesium - LAB USE ONLY 09:41:00 CDT 12/09 CPT-76410 Renal Panel - LAB USE ONLY 09:41:00 CDT 201 09/17/01 CPT-23571 Venipuncture Draw Fee 09:41:00 CDT CPT-64114 Calcium - LAB USE ONLY 17:25:11 CDT CPT-J0897 Prolia 60 mg 15:10:59 CDT CPT-83398 Abx/Therapy Injection 15:10:59 CDT CPT-G0439 [facility] Annual Wellness Exam 14:29:19 CDT CPT-08998 Venipuncture Draw Fee 10:59:04 CDT CPT-10030 CMP - LAB USE ONLY 10:59:04 CDT CPT-10791 CBC with Diff - LAB USE ONLY 10:59:03 CDT 2 CPT-J0897 Prolia 60 mg 15:46:54 [employer] CPT-68987 Abx/Therapy Injection 15:46:54 [employer] CPT-08867 Microalbumin - LAB USE ONLY 09:41:32 [employer] 20 23/01/15 CPT-69824 Free T4 - LAB USE ONLY 09:41:32 [employer] CPT-29130 TSH - LAB USE ONLY 09:41:32 [employer] CPT-42444 BMP - LAB USE ONLY 09:41:32 [employer] CPT-56895 Venipuncture Draw Fee 09:41:32 [employer] CPT-43516 First Vx - Ix admin for Medicare patients 11:19:30 CDT CPT-77101 Fluzone High-Dose Intramuscular Suspension 12/07 11:19:30 CDT CPT-J0897 Prolia 60 mg 14:55:42 CDT CPT-68904 Abx/Therapy Injection 14:55:42 CDT CPT-31413 Bone Density - XRAY USE ONLY 10:27:12 CDT 2 CPT-G0439 Subsequent Annual Wellness Exam 17:54:53 CDT CPT-60673 Foot, left, comp min 3V - XRAY USE ONLY 12:22:49 CDT CPT-G0009 Administration of Pneumococcal Vaccine 3 12:18:00 CDT CPT-55510 Pneumovax 23 Injection Injectable 25 MCG /0.5ML 12:18:00 CDT CPT-J0897 Prolia 60 mg 14:14:16 [employer] CPT-45123 Abx/Therapy Injection 14:14:15 [employer] CPT-98653 Lipid - LAB USE ONLY 10:01:52 [employer] 2 CPT-62951 Calcium - LAB USE ONLY 10:01:51 [employer] CPT-77583 Venipuncture Draw Fee 10:01:51 [employer] CPT-LR Lesion Removal 16:22:01 [employer] CPT-69661 TSH - LAB USE ONLY 14:26:02 CDT CPT-88213 CMP - LAB USE ONLY 14:26:01 CDT CPT-22932 CBC with Diff - LAB USE ONLY 14:26:01 CDT 2 CPT-14414 Venipuncture Draw Fee 14:26:01 CDT CPT-48175 First Vx - Ix admin for Medicare patients 13:27:08 CDT CPT-20062 Fluzone High-Dose Intramuscular Suspension 11/26 13:27:08 CDT CPT-G0438 Initial Annual Wellness Exam 14:19:57 CD T CPT-G0009 Administration of Pneumococcal Vaccine 9 11:36:25 CDT CPT-33018 Prevnar 13 Intramuscular Suspension 1 1:36:25 CDT CPT-41665 Prevnar 13 Intramuscular Suspension 1 0:40:58 CDT CPT-J0897 Prolia 60 mg 10:37:16 CDT CPT-70290 Abx/Therapy Injection 10:37:16 CDT CPT-J0897 Prolia 60 mg 16:09:34 [employer] CPT-J0897 Prolia 60 mg 11:10:35 [employer] CPT-49390 Abx/Therapy Injection 11:10:35 [employer] CPT-000 Give Appropriate Flu Vaccine 17:01:15 [employer] 2 CPT-81401 Fluzone High Dose (65+) 15:03:08 [employer] 02/15 CPT-22207 Immunization Single Admin 15:03:08 [employer] 2014 CPT-OV Office Visit 15:58:06 CDT CPT-J0897 Prolia 60 mg 08:45:38 CDT CPT-07594 Abx/Therapy Injection 08:45:38 CDT CPT-J3420 Vitamin B12 1000mcg (Cyanocobalamin) 09:26:20 [employer] CPT-03573 Abx/Therapy Injection 09:26:20 [employer] CPT-J3420 Vitamin B12 1000mcg (Cyanocobalamin) 09:44:40 [employer] CPT-06808 Abx/Therapy Injection 09:44:40 [employer] CPT-J3420 Vitamin B12 1000mcg (Cyanocobalamin) 09:15:54 [employer] CPT-09913 Abx/Therapy Injection 09:15:54 [employer] CPT-J3420 Vitamin B12 1000mcg (Cyanocobalamin) 09:46:44 [employer] CPT-83089 Abx/Therapy Injection 09:46:44 [employer] CPT-J3420 Vitamin B12 1000mcg (Cyanocobalamin) 09:47:34 [employer] CPT-01822 Abx/Therapy Injection 09:47:34 [employer] CPT-J3420 Vitamin B12 1000mcg (Cyanocobalamin) 14:35:50 [employer] CPT-J3420 Vitamin B12 1000mcg (Cyanocobalamin) 09:25:05 [employer] CPT-21583 Abx/Therapy Injection 09:25:05 [employer] CPT-G0008 Administration of Influenza Virus Vaccine 13:36:47 CDT CPT-67208 Fluzone High-Dose Intramuscular Suspension 11/15 13:36:47 CDT CPT-J0897 Prolia 60 mg 08:50:41 CDT CPT-32682 Abx/Therapy Injection 08:50:41 CDT CPT-16835 Bone Density 12:06:12 CDT CPT-62648 Bone Density 08:54:40 CDT CPT-OV Office Visit 15:37:02 CDT CPT-82806 Postop F/U Visit 15:47:49 CDT CPT-73741 Postop F/U Visit 15:21:02 CDT [facility] 07:52:27 CDT 20 20/06/01 CPT-49834 Venipuncture Draw Fee 13:51:18 CDT CPT-28056 Venipuncture Draw Fee 10:14:55 [employer] CPT-24244 Venipuncture Draw Fee 13:39:45 [employer] CPT-OV Office Visit 15:11:22 [employer] CPT-71108 Venipuncture Draw Fee 09:20:49 [employer] CPT-27585 Venipuncture Draw Fee 16:52:15 [employer] CPT-96991 Venipuncture Draw Fee 10:37:24 [employer] CPT-92112 Venipuncture Draw Fee 08:21:21 [employer] CPT-52584 Venipuncture Draw Fee 08:30:20 [employer] CPT-26327 Venipuncture Draw Fee 14:53:21 [employer] CPT-75334 Venipuncture Draw Fee 09:40:56 [employer] CPT-84698 Venipuncture Draw Fee 10:30:47 [employer] CPT-37461 Venipuncture Draw Fee 10:46:17 [employer] CPT-95279 Venipuncture Draw Fee 11:12:45 [employer] CPT-81191 Venipuncture Draw Fee 09:53:33 [employer] CPT-28461 Venipuncture Draw Fee 11:53:51 [employer] CPT-53343 Venipuncture Draw Fee 10:33:50 [employer] CPT-98316 Venipuncture Draw Fee 10:05:01 [employer] CPT-39506 Venipuncture Draw Fee 14:32:52 [employer] CPT-58276 Venipuncture Draw Fee 09:46:13 [employer] CPT-78049 Venipuncture Draw Fee 11:34:27 [employer] CPT-82890 Venipuncture Draw Fee 13:17:16 [employer] CPT-43369 Venipuncture Draw Fee 12:05:39 CDT CPT-39401 Venipuncture Draw Fee 12:49:12 CDT CPT-11029 Venipuncture Draw Fee 12:37:18 CDT CPT-79933 Venipuncture Draw Fee 10:57:11 CDT CPT-71733 Venipuncture Draw Fee 13:47:40 CDT CPT-21476 Venipuncture Draw Fee 10:02:17 CDT CPT-94539 TB Tubersol 17:32:32 CDT CPT-OV Office Visit 16:21:53 CDT CPT-OV Office Visit 15:49:22 CDT CPT-OV Office Visit 17:16:31 CDT CPT-OV Office Visit 10:43:31 CDT
--- OUTSIDE RECORDS SUMMARY | 2019-02-09 12:03 | XMS REPORT | Clinical Summary ---
Author Author Renaldo, Florecita Munoz Organization [facility] [employer] Address Unknown Phone Unavailable Allergies, Adverse Reactions, [...] PhD Hyperpotassemia GERD 530.81 Resolved Kylie Yokum [employer]CREW[employer] Esophageal reflux Health maintenance exam V70.0 Resolved Adolfo Yates MD Routine general medical examination at a health care facility Anemia 285.9 Resolved Kylie Holt [employer] SCREW[employer]KER Anemia, unspecified Personal history of malignant neoplasm of large intestine V10.05 Active Adam Yates MD Personal history of malignant neoplasm of large intestine Hypomagnesemia 275.2 Resolved Kylie Holt [employer]OMAT[employer] SCREWMAKER Disorders of magnesium metabolism Weakness 780.79 Resolved [...] Sebaceous cyst, scalp 706.2 Resolved Kylie Yokum [employer]OMAT[employer] SCREWMAKER Sebaceous cyst Cervical lymphadenopathy, anterior, left 785.6 Resolv ed Kylie Yokum [employer]OMAT[employer] SCREWMAKER Enlargement of lymph nodes Need for prophylactic vaccination and inoculation against in fluenza V04.81 Resolved Adam Yates MD Need for prophylactic vaccination and inoculation against influenza Preventive health care V70.0 Resolved Kylie Escalonaku m [employer] SCREWMAKER Routine general medical examination at a health care facility Thyroid nodule, left 241.0 Active Kylie Yokum A PRN Nontoxic uninodular goiter Screening mammogram V76.12 Resolved Kylie Yokum A PRN Other screening mammogram Mandy 706.2 Resolved Kylie Yokum [employer]OM[employer] SCREW[employer]KER Sebaceous cyst Colon cancer, ascending 153.6 Resolved Kylie Yok um [employer]OMAT[employer] SCREWMAKER Malignant neoplasm of ascending colon Foot pain, left 729.5 Resolved Kylie Yokum [employer]OMAT[employer] SCREWMAKER Pain in limb Splinter 919.6 Resolved Kylie Yokum [employer]OMAT[employer] SCREWMAKER Superficial foreign body (splinter) of other, multiple, and unspecified sites, without major open wound and without mention of infection Rash 782.1 Resolved Kylie Yokum AUTOMAT[employer] SCREWMAKER Rash and other nonspecific skin eruption Cyst 706.2 Resolved Kylie Yokum AUTOMAT[employer] SCREWMAKER Sebaceous cyst Body Mass Index 23.0-23.9 Adult Active Kylie Yokum [employer]OMAT[employer] SCREWMAKER Body Mass Index between 19-24, adult Unspecified fall, initial encounter E888.9 Inactive Kylie Holt [employer]OMAT[employer] SCREWMAKER Unspecified fall Eye pain, left 379.91 Inactive Kylie Holt [employer]OMAT[employer] SCREWMAKER Pain in or around eye Pharyngitis, acute 074.0 Active Kylie Holt APR N Herpangina Chronic kidney disease stage 2 585.2 Active Rosemarie Gresham RN Chronic kidney disease, Stage II (mild) Hypomagnesemia 275.2 Active Rosemarie Gresham RN Disorders of magnesium metabolism Hypokalemia 276.8 Active Rosemarie Gresham RN Hypopotassemia Enlarged thyroid 240.9 Active Citlaly Roland A Goiter, unspecified ADENOCARCINOMA, COLON, 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 Dick Yates MD ABDOMINAL PAIN, GENERALIZED ICD-789.07 Inactive Hope Benavidez MD PhD FEVER UNSPECIFIED ICD-780.60 Inactive Hope cohn MD PhD UNSPECIFIED VENOUS INSUFFICIENCY ICD-459.81 Jarratt ctive Adam Yates MD ADENOCARCINOMA, 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 Inac tive Hope Benavidez MD PhD Hyperkalemia ICD-276.7 Inactive Hope Benavidez MD PhD ABDOMINAL PAIN, RIGHT LOWER QUADRANT ICD-789.03 Inactive Kina Joshua [employer]OMAT[employer] SCREWMAKER Health maintenance exam ICD-V70.0 Inactive Adolfo Yates MD Anemia ICD-285.9 Inactive Kylie Holt [employer]OMAT[employer] SCREWMAKER 07/24 GERD ICD-530.81 Inactive Kylie Yokum [employer]OMAT[employer] SCREWMAKER 2015 Hypomagnesemia ICD-275.2 Inactive Kylie Yokum [employer]OM[employer] SCREW[employer] Weakness ICD-780.79 Inactive Hope Benavidez MD P hD Asymptomatic postmenopausal status (age-related) (natural) I CD-V49.81 Inactive Hope Benavidez MD PhD Aftercare following surgery of the teeth,oral cavity a nd digestive system, NEC ICD-V58.75 Inactive Adam Yates MD Dysuria ICD-788.1 Inactive Hope Benavidez MD PhD 201 05/19/01 Colon cancer ICD-153.9 Inactive Adam luna MD Diarrhea, functional ICD-564.5 Inactive Selena Yates MD Sebaceous cyst, scalp ICD-706.2 Inactive Tracy hi Yokum [employer]OM[employer] SCREW[employer]KER Cervical lymphadenopathy, anterior, left ICD-785.6 Inactive Kylie Yokum AUTOMAT[employer] SCREW[employer]KER Need for prophylactic vaccination and inoculation against in fluenza ICD-V04.81 Inactive Adam Yates MD Adenocarcinoma, ascending colon ICD-153.6 Inac tive Adam Yates MD Mandy ICD-706.2 Inactive Kylie Yokum [employer]OMAT[employer] SCREW[employer]KER 07/20 Colon cancer, ascending ICD-153.6 Inactive K athi Yokum AUTOMATIC SCREWMAKER Foot pain, left ICD-729.5 Inactive Kylie Yokum [employer]OM[employer] SCREW[employer]KER Splinter ICD-919.6 Inactive Kylie Holt [employer]OMATIC SCREWMAKER 2017 Rash ICD-782.1 Inactive Kylie Holt [employer]OMATIC SCREWMAKER 07/25 Cyst ICD-706.2 Inactive Kylie Holt AUTOMATIC SCREWMAKER 08/11 Unspecified fall, initial encounter ICD-E888.9 Inactive Kylie Holt AUTOMAT[employer] SCREWMAKER Eye pain, left ICD-379.91 Inactive Kylie Holt AUTOMATIC SCREWMAKER Preventive health care ICD-V70.0 Inactive Fiorella Holt AUTOMATIC SCREWMAKER Screening mammogram ICD-V76.12 Inactive Kylie Holt [employer]OMAT[employer] SCREWMAKER Medication List Medication Instructions Start Date Stop Date Generic Name NDC Status Provider Patient Instruction VOLTAREN 1 % TRANSDERMAL GEL apply 2 grams q 6-8 hour to left arm as needed for pain DICLOFENAC SODIUM 69890945947 Active Kylie Holt APR N Active IMODIUM A-D 2 MG ORAL TABLET 1 tablet twice a day LOPERAMIDE HCL 24518742137 Active Kylie Holt APRN Active COQ10 100 MG ORAL CAPSULE 1 daily COENZYME Q10 292523 59909 Active LETY Nation Active VITAMIN D3 2000 UNIT ORAL CAPSULE Melaleuca-One daily CHOLECALCIFEROL 48624067833 Active Kylie Holt APRN Active PROBIOTIC DAILY ORAL CAPSULE Take one daily PROBIO TIC PRODUCT 98142977933 Active Kylie Holt APRN Active IRON 325 (65 Fe) MG ORAL TABLET 1 every other day FERROUS SULFATE 08784711187 No Longer Active Kylie Holt APRN Active FLORANEX ORAL PACKET 1 pack three times daily, for bowel health LACTOBACILLUS 75789182518 No Longer Active Kylie Holt APRN Active LOMOTIL 2.5-0.025 MG ORAL TABLET 1 tab by mouth prn 20 23/10/23 DIPHENOXYLATE-ATROPINE 83807841856 No Longer Active Kylie Yokum [employer]OMAT[employer] SCREWMAKER Active MAGNESIUM GLUCONATE 250 MG ORAL TABLET 1 tab tid 23/10/23 MAGNESIUM GLUCONATE 74962005949 No Longer Active Kylie Yokum [employer]OMAT[employer] SCREWMAKER Active CYANOCOBALAMIN 1000 MCG/ML INJECTION SOLUTION 1 injection ev ruben 2 weeks CYANOCOBALAMIN 75406406684 No Longer Active Kylie Yok um AUTOMATIC SCREWMAKER Active ATENOLOL 25 MG ORAL TABLET 1/2 pill by mouth daily, fo r headaches, blood pressure ATENOLOL 15037762468 Active Kylie Yokum AUTOMAT[employer] SCREWMAKER Active PROPRANOLOL HCL 80 MG ORAL TABLET 1 tab tue. and thur. PROPRANOLOL HCL 60274585033 No Longer Active Hope Benavidez MD PhD A ctive VITAMIN D3 4000 IU 1 tab 3 times daily VITAMIN D3 4000 IU No Longer Active Hope Benavidez MD PhD Active BACTRIM DS 800-160 MG ORAL TABLET 1 pill by mouth twice claudio y, for UTI SULFAMETHOXAZOLE-TRIMETHOPRIM 77827645588 No Longer Active Hope Benavidez MD PhD Active PROLIA 60 MG/ML SUBCUTANEOUS SOLUTION 1 shot every 6 months for osteoprosis DENOSUMAB 74022756612 Active Hope Benavidez MD PhD Active CALCIUM + D + K 750-500-40 MG-UNT-MCG ORAL TABLET 1 tab by m [facility] twice daily CALCIUM-VITAMIN D-VITAMIN K 10755764720 Active Hope valdez MD PhD Active DAILY VALUE MULTIVITAMIN ORAL TABLET 1 tab by mouth twice daily 201 05/16/14 MULTIPLE VITAMIN 02901246325 Active Hope Benavidez MD PhD Acti ve FISH OIL 306 MG CAPS 1 tab by mouth three times daily OMEGA-3 FATTY ACIDS 84347643560 Active Hope Benavidez MD PhD Active LUTEIN 10 MG ORAL TABLET 1 tab daily LUTEIN 70884314 408 Active Hope Benavidez MD PhD Active TRIAMTERENE-HCTZ 37.5-25 MG ORAL TABLET 1 tab by mouth daily 10/22 TRIAMTERENE-HCTZ 61612333006 Active Kylie Holt AUTOMATIC SCREWMAKER Active CYCLOBENZAPRINE HCL 10 MG ORAL TABLET 1 tablet by mout h three times daily as needed for headaches CYCLOBENZAPRINE HCL 47672916885 No Longer Active Adam Yates MD Active OMEPRAZOLE 20 MG ORAL CAPSULE DELAYED RELEASE 1 tablet by mo [place] daily for GERD OMEPRAZOLE 48779713281 No Longer Active Adam Yates MD Active ZOFRAN 8 MG ORAL TABLET 1 tab by mouth every 12 hours prn 4 ONDANSETRON HCL 86696668990 No Longer Active Adam Yates MD Active PHENADOZ 25 MG RECTAL SUPPOSITORY 1 every 4 hrs. PRN 2 PROMETHAZINE HCL 91309465349 No Longer Active Adam Yates MD A ctive POTASSIUM CHLORIDE 20 MEQ ORAL PACKET by mouth twice a day prn 2 POTASSIUM CHLORIDE 78764379396 No Longer Active Adam Carpenter MD Active PROMETHAZINE HCL 25 MG ORAL TABLET 1 Q. 4 hr. PRN PROMETHAZINE HCL 69704592340 No Longer Active Adam Yates MD Active INNOPRAN XL 120 MG ORAL CAPSULE EXTENDED RELEASE 24 HO UR Take one by mouth daily PROPRANOLOL HCL SR BEADS 57778209841 No Longer Active Adam Yates MD Active FLAGYL 500 MG ORAL TABLET 1 pill by mouth three times daily, for diarrhea METRONIDAZOLE 62025873664 No Longer Active Hope landers MD PhD Active DYAZIDE 37.5-25 MG ORAL CAPSULE 1 qd TRIA MTERENE-HCTZ 25749019274 No Longer Active Hope Benavidez MD PhD Active PROZAC 20 MG ORAL CAPSULE 1 q d FLUOXETINE HCL 91837513870 No Longer Active Hope Benavidez MD PhD Active SIMVASTATIN 40 MG ORAL TABLET 1 qd SIMVAS TATIN 24849139973 No Longer Active Adam Yates MD Active MELOXICAM 15 MG ORAL TABLET 1 qd MELOXICAM 49203293110 No Longer Active Adam Yates MD Active EXCEDRIN EXTRA STRENGTH 250-250-65 MG ORAL TABLET 1-2 q6h WA N headache [id number] 86248118269 Active Hope Benavidez MD PhD Active FLAGYL 500 MG ORAL TABLET 1 qid METRONIDAZOL E 01092153595 No Longer Active Adam Yates MD Active LEVAQUIN 750 MG ORAL TABLET 1 qd LEVOFLOXAC IN 50652436041 No Longer Active Adam Yates MD Active ADULT ASPIRIN LOW STRENGTH 81 MG ORAL TABLET DISINTEGRATING 1 qd ASPIRIN 15875326229 Active Hope Benavidez MD PhD Active LEVAQUIN 750 MG ORAL TABLET 1 qd LEVAQUIN 750 MG ORAL TABLET 263276 LEVOFLOXACIN Inactive FLAGYL 500 MG ORAL TABLET 1 qid FLAGYL 500 MG ORAL TABLET 400632 METRONIDAZOLE Inactive MELOXICAM 15 MG ORAL TABLET 1 qd MELOXICAM 15 MG ORAL TABLET 039817 MELOXICAM Inactive SIMVASTATIN 40 MG ORAL TABLET 1 qd SIMVASTATIN 40 MG ORAL TABLET 216284 SIMVASTATIN Inactive PROZAC 20 MG ORAL CAPSULE 1 q d PROZAC 20 MG ORAL CAPSULE 228582 FLUOXETINE HCL Inactive DYAZIDE 37.5-25 MG ORAL CAPSULE 1 qd 5 DYAZIDE 37.5-25 MG ORAL CAPSULE 336979 TRIAMTERENE-HCTZ Inactive INNOPRAN XL 120 MG ORAL CAPSULE EXTENDED RELEASE 24 HO UR Take one by mouth daily INNOPRAN XL 120 MG ORAL CAPSULE EXTENDED RELEASE 24 HOUR PROPRANOLOL HCL SR BEADS Inactive PROMETHAZINE HCL 25 MG ORAL TABLET 1 Q. 4 hr. PRN 2013 PROMETHAZINE HCL 25 MG ORAL TABLET 560377 PROMETHAZINE HCL Inactive POTASSIUM CHLORIDE 20 MEQ ORAL PACKET by mouth twice a day prn 2 POTASSIUM CHLORIDE 20 MEQ ORAL PACKET 6907615 POTASSIUM CHLORIDE Inactive PHENADOZ 25 MG RECTAL SUPPOSITORY 1 every 4 hrs. PRN 2 PHENADOZ 25 MG RECTAL SUPPOSITORY 537542 PROMETHAZINE HCL Inactive ZOFRAN 8 MG ORAL TABLET 1 tab by mouth every 12 hours prn 4 ZOFRAN 8 MG ORAL TABLET 593436 ONDANSETRON HCL Inactive OMEPRAZOLE 20 MG ORAL CAPSULE DELAYED RELEASE 1 tablet by mo uth daily for GERD OMEPRAZOLE 20 MG ORAL CAPSULE DELAYED RELEASE 19 8051 OMEPRAZOLE Inactive CYCLOBENZAPRINE HCL 10 MG ORAL TABLET 1 tablet by mout h three times daily as needed for headaches CYCLOBENZAPRINE HCL 10 MG ORAL TABLET 988819 CYCLOBENZAPRINE HCL Inactive VITAMIN D3 4000 IU 1 tab 3 times daily VITAMIN D3 4000 IU Inactive PROPRANOLOL HCL 80 MG ORAL TABLET 1 tab tue. and thur. PROPRANOLOL HCL 80 MG ORAL TABLET 743465 PROPRANOLOL HCL Inacti ve CYANOCOBALAMIN 1000 MCG/ML INJECTION SOLUTION 1 injection ev ruben 2 weeks CYANOCOBALAMIN 1000 MCG/ML INJECTION SOLUTION 30 9594 CYANOCOBALAMIN Inactive MAGNESIUM GLUCONATE 250 MG ORAL TABLET 1 tab tid 23/10/23 MAGNESIUM GLUCONATE 250 MG ORAL TABLET 262238 MAGNESIUM GLUCONATE Inactive LOMOTIL 2.5-0.025 MG ORAL TABLET 1 tab by mouth prn 20 23/10/23 LOMOTIL 2.5-0.025 MG ORAL TABLET 9699901 DIPHENOXYLATE-ATROPINE Inac tive FLORANEX ORAL PACKET 1 pack three times daily, for bowel health FLORANEX ORAL PACKET 28174540369 LACTOBACILLUS Inactive IRON 325 (65 Fe) MG ORAL TABLET 1 every other day 2015 IRON 325 (65 Fe) MG ORAL TABLET 983236 FERROUS SULFATE Inactive FLAGYL 500 MG ORAL TABLET 1 pill by mouth three times daily, for diarrhea FLAGYL 500 MG ORAL TABLET 379321 METRONIDAZOLE I nactive BACTRIM DS 800-160 MG ORAL TABLET 1 pill by mouth twice claudio y, for UTI BACTRIM DS 800-160 MG ORAL TABLET 262498 SULFAMETHOXAZOLE-TRIMETHOPRIM Inactive Advance Directives Directive Description Start [...] ... - Chemistry sodium, serum 141 mmol/L 843-595 9571/01/10 potassium, serum 3.7 mmol/L 3.5-5.2 chloride, serum 101 mmol/L 98-107 carbon dioxide, venous blood 31.0 mmol/L 21.0-32 .0 blood glucose 96 mg/dL 65-95 calcium, serum 9.5 mg/dL 8.5-10.1 urea nitrogen, blood 21 mg/dL 7-18 creatinine, serum 1.40 mg/dL 0.60-1.30 Estimated Glomerular Filtration Rate (calc) 39 (?) mL/min/1.73m2 = OR > 60 mL/min cholesterol, serum 211 mg/dL 229-284 8408/01/10 triglyceride, serum, fasting 77 mg/dL 30-200 HDL [...] mmol/L 21.0-32 .0 sodium, serum 142 mmol/L 860-112 1448/04/19 urea nitrogen, blood 23 mg/dL 7-18 creatinine, [...] 60 mL/min creatinine, serum 1.35 mg/dL 0.60-1.30 sodium, serum 142 mmol/L 376-644 7839/11/02 potassium, serum 3.4 mmol/L 3.5-5.2 chloride, serum 101 mmol/L 98-107 carbon dioxide, venous blood 31.5 mmol/L 21.0-32 .0 Office Visit: [facility] - SUB - Basic LDL target level 130 mg/dL Office Visit: [facility] - SUB - Chemistry HDL cholesterol, serum, target level 40 mg/dL cholesterol, target level 200 mg/dL triglyceride, target level 150 mg/dL Encounters Code Encounter Date Provider Facility CPT-65574 [id number] Vst-Est Level III 14:29:19 CDT Fiorella Holt Formerly named [facility] [place] CPT-19615 Level 2 Est. Patient 14:58:26 CDT Kylie Lund Formerly named [facility] [place] CPT-76060 Level 3 Est. Patient 08:15:24 CHARACTER ACTRESS Kylie Lund Formerly named [facility] [place] CPT-63498 Level 2 Est. Patient 14:27:16 CHARACTER ACTRESS Kylie Lund Formerly named [facility] [place] CPT-57155 Level 3 Est. Patient 17:54:48 CDT Kylie Lund Formerly named [facility] [place] CPT-58862 Level 3 Est. Patient 16:26:30 CDT Kinachrista blackmon Formerly named [facility] CPT-09057 Level 3 New Patient 16:22:01 CHARACTER ACTRESS Adam Yates MD [facility] CPT-41159 Level 4 Est. Patient 17:00:48 CDT Kylie Lund Formerly named [facility] [place] CPT-20144 Level 3 Est. Patient 13:15:54 CDT Kylie Lund [facility] CPT-08757 Level 3 Est. Patient 09:10:11 CDT Kylie Kevon [facility] CPT-46921 Level 4 Est. Patient 12:08:30 CHARACTER ACTRESS Hope cohn MD PhD [facility] CPT-28723 Level 4 Est. Patient 19:08:42 CHARACTER ACTRESS Hope cohn MD PhD [facility] CPT-88197 Level 4 Est. Patient 20:04:51 CDT Hope cohn MD PhD [facility] CPT-29436 Level 3 New Patient 01:46:11 CHARACTER ACTRESS Hope landers MD PhD [facility] Procedures Code Procedure Name Date Entry Date Standard Desc ription CPT-38310 Sono Soft Tissue Head and Neck - XRAY US E ONLY 11:56:06 CHARACTER ACTRESS CPT-66202 Abx/Therapy Injection 09:40:08 CHARACTER ACTRESS CPT-J0897 Prolia 60 mg 09:40:08 CHARACTER ACTRESS CPT-33909 First Vx - Ix admin for Medicare patients 02/08 10:02:45 CDT CPT-03245 Fluzone Quadrivalent Intramuscular Suspe nsion 0.5 ML 10:02:45 CDT CPT-70873 Magnesium - LAB USE ONLY 09:41:00 CDT 12/09 CPT-95467 Renal Panel - LAB USE ONLY 09:41:00 CDT 201 09/17/01 CPT-76511 Venipuncture Draw Fee 09:41:00 CDT CPT-27883 Calcium - LAB USE ONLY 17:25:11 CDT CPT-J0897 Prolia 60 mg 15:10:59 CDT CPT-31528 Abx/Therapy Injection 15:10:59 CDT CPT-G0439 [facility] Annual Wellness Exam 14:29:19 CDT CPT-90012 Venipuncture Draw Fee 10:59:04 CDT CPT-09343 CMP - LAB USE ONLY 10:59:04 CDT CPT-12636 CBC with Diff - LAB USE ONLY 10:59:03 CDT 2 CPT-J0897 Prolia 60 mg 15:46:54 CHARACTER ACTRESS CPT-06476 Abx/Therapy Injection 15:46:54 CHARACTER ACTRESS CPT-85515 Microalbumin - LAB USE ONLY 09:41:32 CHARACTER ACTRESS 20 23/01/15 CPT-72147 Free T4 - LAB USE ONLY 09:41:32 CHARACTER ACTRESS CPT-19771 TSH - LAB USE ONLY 09:41:32 CHARACTER ACTRESS CPT-68463 BMP - LAB USE ONLY 09:41:32 CHARACTER ACTRESS CPT-63214 Venipuncture Draw Fee 09:41:32 CHARACTER ACTRESS CPT-18065 First Vx - Ix admin for Medicare patients 11:19:30 CDT CPT-80648 Fluzone High-Dose Intramuscular Suspension 12/07 11:19:30 CDT CPT-J0897 Prolia 60 mg 14:55:42 CDT CPT-98963 Abx/Therapy Injection 14:55:42 CDT CPT-26735 Bone Density - XRAY USE ONLY 10:27:12 CDT 2 CPT-G0439 Subsequent Annual Wellness Exam 17:54:53 CDT CPT-69176 Foot, left, comp min 3V - XRAY USE ONLY 12:22:49 CDT CPT-G0009 Administration of Pneumococcal Vaccine 3 12:18:00 CDT CPT-90549 Pneumovax 23 Injection Injectable 25 MCG /0.5ML 12:18:00 CDT CPT-J0897 Prolia 60 mg 14:14:16 CHARACTER ACTRESS CPT-89582 Abx/Therapy Injection 14:14:15 CHARACTER ACTRESS CPT-48798 Lipid - LAB USE ONLY 10:01:52 CHARACTER ACTRESS 2 CPT-11227 Calcium - LAB USE ONLY 10:01:51 CHARACTER ACTRESS CPT-29950 Venipuncture Draw Fee 10:01:51 CHARACTER ACTRESS CPT-LR Lesion Removal 16:22:01 CHARACTER ACTRESS CPT-07333 TSH - LAB USE ONLY 14:26:02 CDT CPT-77858 CMP - LAB USE ONLY 14:26:01 CDT CPT-22090 CBC with Diff - LAB USE ONLY 14:26:01 CDT 2 CPT-58349 Venipuncture Draw Fee 14:26:01 CDT CPT-84841 First Vx - Ix admin for Medicare patients 13:27:08 CDT CPT-78099 Fluzone High-Dose Intramuscular Suspension 11/26 13:27:08 CDT CPT-G0438 Initial Annual Wellness Exam 14:19:57 CD T CPT-G0009 Administration of Pneumococcal Vaccine 9 11:36:25 CDT CPT-50235 Prevnar 13 Intramuscular Suspension 1 1:36:25 CDT CPT-97815 Prevnar 13 Intramuscular Suspension 1 0:40:58 CDT CPT-J0897 Prolia 60 mg 10:37:16 CDT CPT-91495 Abx/Therapy Injection 10:37:16 CDT CPT-J0897 Prolia 60 mg 16:09:34 CHARACTER ACTRESS CPT-J0897 Prolia 60 mg 11:10:35 CHARACTER ACTRESS CPT-48857 Abx/Therapy Injection 11:10:35 CHARACTER ACTRESS CPT-000 Give Appropriate Flu Vaccine 17:01:15 CHARACTER ACTRESS 2 CPT-29696 Fluzone High Dose (65+) 15:03:08 CHARACTER ACTRESS 02/15 CPT-86233 Immunization Single Admin 15:03:08 CHARACTER ACTRESS 2014 CPT-OV Office Visit 15:58:06 CDT CPT-J0897 Prolia 60 mg 08:45:38 CDT CPT-65992 Abx/Therapy Injection 08:45:38 CDT CPT-J3420 Vitamin B12 1000mcg (Cyanocobalamin) 09:26:20 CHARACTER ACTRESS CPT-66922 Abx/Therapy Injection 09:26:20 CHARACTER ACTRESS CPT-J3420 Vitamin B12 1000mcg (Cyanocobalamin) 09:44:40 CHARACTER ACTRESS CPT-40459 Abx/Therapy Injection 09:44:40 CHARACTER ACTRESS CPT-J3420 Vitamin B12 1000mcg (Cyanocobalamin) 09:15:54 CHARACTER ACTRESS CPT-29221 Abx/Therapy Injection 09:15:54 CHARACTER ACTRESS CPT-J3420 Vitamin B12 1000mcg (Cyanocobalamin) 09:46:44 CHARACTER ACTRESS CPT-20164 Abx/Therapy Injection 09:46:44 CHARACTER ACTRESS CPT-J3420 Vitamin B12 1000mcg (Cyanocobalamin) 09:47:34 CHARACTER ACTRESS CPT-75897 Abx/Therapy Injection 09:47:34 CHARACTER ACTRESS CPT-J3420 Vitamin B12 1000mcg (Cyanocobalamin) 14:35:50 CHARACTER ACTRESS CPT-J3420 Vitamin B12 1000mcg (Cyanocobalamin) 09:25:05 CHARACTER ACTRESS CPT-48480 Abx/Therapy Injection 09:25:05 CHARACTER ACTRESS CPT-G0008 Administration of Influenza Virus Vaccine 13:36:47 CDT CPT-69710 Fluzone High-Dose Intramuscular Suspension 11/15 13:36:47 CDT CPT-J0897 Prolia 60 mg 08:50:41 CDT CPT-02613 Abx/Therapy Injection 08:50:41 CDT CPT-71391 Bone Density 12:06:12 CDT CPT-13341 Bone Density 08:54:40 CDT CPT-OV Office Visit 15:37:02 CDT CPT-26238 Postop F/U Visit 15:47:49 CDT CPT-96640 Postop F/U Visit 15:21:02 CDT [facility] Transitional Care Mgmt-High 07:52:27 CDT 20 20/06/01 CPT-42061 Venipuncture Draw Fee 13:51:18 CDT CPT-36297 Venipuncture Draw Fee 10:14:55 CHARACTER ACTRESS CPT-19680 Venipuncture Draw Fee 13:39:45 CHARACTER ACTRESS CPT-OV Office Visit 15:11:22 CHARACTER ACTRESS CPT-39864 Venipuncture Draw Fee 09:20:49 CHARACTER ACTRESS CPT-17653 Venipuncture Draw Fee 16:52:15 CHARACTER ACTRESS CPT-94592 Venipuncture Draw Fee 10:37:24 CHARACTER ACTRESS CPT-99292 Venipuncture Draw Fee 08:21:21 CHARACTER ACTRESS CPT-95182 Venipuncture Draw Fee 08:30:20 CHARACTER ACTRESS CPT-72039 Venipuncture Draw Fee 14:53:21 CHARACTER ACTRESS CPT-26238 Venipuncture Draw Fee 09:40:56 CHARACTER ACTRESS CPT-02009 Venipuncture Draw Fee 10:30:47 CHARACTER ACTRESS CPT-43395 Venipuncture Draw Fee 10:46:17 CHARACTER ACTRESS CPT-46232 Venipuncture Draw Fee 11:12:45 CHARACTER ACTRESS CPT-34834 Venipuncture Draw Fee 09:53:33 CHARACTER ACTRESS CPT-75568 Venipuncture Draw Fee 11:53:51 CHARACTER ACTRESS CPT-66425 Venipuncture Draw Fee 10:33:50 CHARACTER ACTRESS CPT-75115 Venipuncture Draw Fee 10:05:01 CHARACTER ACTRESS CPT-03060 Venipuncture Draw Fee 14:32:52 CHARACTER ACTRESS CPT-42873 Venipuncture Draw Fee 09:46:13 CHARACTER ACTRESS CPT-86179 Venipuncture Draw Fee 11:34:27 CHARACTER ACTRESS CPT-99072 Venipuncture Draw Fee 13:17:16 CHARACTER ACTRESS CPT-80948 Venipuncture Draw Fee 12:05:39 CDT CPT-55635 Venipuncture Draw Fee 12:49:12 CDT CPT-54080 Venipuncture Draw Fee 12:37:18 CDT CPT-49225 Venipuncture Draw Fee 10:57:11 CDT CPT-90978 Venipuncture Draw Fee 13:47:40 CDT CPT-64235 Venipuncture Draw Fee 10:02:17 CDT CPT-46171 TB Tubersol 17:32:32 CDT CPT-OV Office Visit 16:21:53 CDT CPT-OV Office Visit 15:49:22 CDT CPT-OV Office Visit 17:16:31 CDT CPT-OV Office Visit 10:43:31 CDT
--- OUTSIDE RECORDS SUMMARY | 2019-02-09 12:04 | XMS REPORT | Clinical Summary ---
Author Author Admin, Florecita Munoz Organization [facility] [employer] Address Unknown Phone Unavailable Allergies, Adverse Reactions, [...] Sebaceous cyst, scalp 706.2 Resolved Kylie Yokum [employer] Sebaceous cyst Cervical lymphadenopathy, anterior, left 785.6 Resolv ed Kylie Yokum [employer] Enlargement of lymph nodes Need for prophylactic vaccination and inoculation against in fluenza V04.81 Resolved Adam Yates MD Need for prophylactic vaccination and inoculation against influenza Preventive health care V70.0 Resolved Kylie Yoku m [employer] Routine general medical examination at a health care facility Thyroid nodule, left 241.0 Active Kylie Yokum A PRN Nontoxic uninodular goiter Screening mammogram V76.12 Resolved Kylie Yokum A PRN Other screening mammogram Mandy 706.2 Resolved Kylie Yokum [employer] Sebaceous cyst Colon cancer, ascending 153.6 Resolved Kylie Yok um [employer] Malignant neoplasm of ascending colon Foot pain, left 729.5 Resolved Kylie Yokum [employer] Pain in limb Splinter 919.6 Resolved Kylie Yokum [employer] Superficial foreign body (splinter) of other, multiple, and unspecified sites, without major open wound and without mention of infection Rash 782.1 Resolved Kylie Yokum [employer] Rash and other nonspecific skin eruption Cyst 706.2 Resolved Kylie Yokum [employer] Sebaceous cyst Body Mass Index 23.0-23.9 Adult Active Kylie Yokum [employer] Body Mass Index between 19-24, adult Unspecified fall, initial encounter E888.9 Inactive Kylie Holt [employer] Unspecified fall Eye pain, left 379.91 Inactive Kylie Holt [employer] Pain in or around eye Pharyngitis, acute [...] RIGHT LOWER QUADRANT ICD-789.03 Inactive Kina Joshua [employer] ADENOCARCINOMA, COLON, 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 Dick Yates MD ABDOMINAL PAIN, GENERALIZED ICD-789.07 Inactive Hope Benavidez MD PhD FEVER UNSPECIFIED ICD-780.60 Inactive Hope cohn MD PhD UNSPECIFIED VENOUS INSUFFICIENCY ICD-459.81 [place] ctive Adam Yates MD ADENOCARCINOMA, 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 Inac tive Hope Benavidez MD PhD Hyperkalemia ICD-276.7 Inactive Hope Benavidez MD PhD GERD ICD-530.81 Inactive Kylie Yanet [employer] 2015 Health maintenance exam ICD-V70.0 Inactive Adolfo Yates MD Anemia ICD-285.9 Inactive Kylie Yokum [employer] 07/24 Hypomagnesemia ICD-275.2 Inactive Kylie Yokum [employer] Weakness ICD-780.79 Inactive Hope Benavidez MD P [...] cyst, scalp ICD-706.2 Inactive Tracy shubham Yokum [employer] Cervical lymphadenopathy, anterior, left ICD-785.6 Inactive Kylie Yokum [employer] Need for prophylactic vaccination and inoculation against in fluenza ICD-V04.81 Inactive Adam Yates MD Preventive health care ICD-V70.0 Inactive Ka thi Yokum [employer] Screening mammogram ICD-V76.12 Inactive Kylie Yokum [employer] Mandy ICD-706.2 Inactive Kylie Yokum [employer] 2017/ 06/13 Colon cancer, ascending ICD-153.6 Inactive K umang Holt [employer] Foot pain, left ICD-729.5 Inactive Kylie Holt [employer] Splinter ICD-919.6 Inactive Kylie Holt [employer] 2017 Rash ICD-782.1 Inactive Kylie Lundum [employer] 07/25 Cyst ICD-706.2 Inactive Kylie Holt [employer] 08/11 Unspecified fall, initial encounter ICD-E888.9 Inactive Kylie Holt [employer] Eye pain, left ICD-379.91 Inactive Kylie Holt [employer] Medication List Medication Instructions Start Date Stop Date Generic Name NDC Status Provider Patient Instruction VOLTAREN 1 % TRANSDERMAL GEL apply 2 grams q 6-8 hour to left arm as needed for pain DICLOFENAC SODIUM 50719904174 Active Kylie Holt APR N Active IMODIUM A-D 2 MG ORAL TABLET 1 tablet twice a day LOPERAMIDE HCL 27902426896 Active Kylie Holt APRN Active COQ10 100 MG ORAL CAPSULE 1 daily COENZYME Q10 256666 88944 Active LETY Nation Active VITAMIN D3 2000 UNIT ORAL CAPSULE Melaleuca-One daily CHOLECALCIFEROL 37570458677 Active Kylie Holt APRN Active PROBIOTIC DAILY ORAL CAPSULE Take one daily PROBIO TIC PRODUCT 19906251341 Active Kylie Holt APRN Active IRON 325 (65 Fe) MG ORAL TABLET 1 every other day FERROUS SULFATE 74510573102 No Longer Active Kylie Holt APRN Active FLORANEX ORAL PACKET 1 pack three times daily, for bowel health LACTOBACILLUS 53633983168 No Longer Active Kylie Holt APRN Active LOMOTIL 2.5-0.025 MG ORAL TABLET 1 tab by mouth prn 20 23/10/23 DIPHENOXYLATE-ATROPINE 77914436561 No Longer Active Kylie Yokum [employer] Active MAGNESIUM GLUCONATE 250 MG ORAL TABLET 1 tab tid 23/10/23 MAGNESIUM GLUCONATE 26863263093 No Longer Active Kylie Yokum [employer] Active CYANOCOBALAMIN 1000 MCG/ML INJECTION SOLUTION 1 injection ev ruben 2 weeks CYANOCOBALAMIN 36962887782 No Longer Active Kylie Yok um [employer] Active ATENOLOL 25 MG ORAL TABLET 1/2 pill by mouth daily, fo r headaches, blood pressure ATENOLOL 67252464527 Active Kylie Yokum [employer] Active PROPRANOLOL HCL 80 MG ORAL TABLET 1 tab tue. and thur. PROPRANOLOL HCL 63144075244 No Longer Active Hope Benavidez MD PhD A ctive VITAMIN D3 4000 IU 1 tab 3 times daily VITAMIN D3 4000 IU No Longer Active Hope Benavidez MD PhD Active BACTRIM DS 800-160 MG ORAL TABLET 1 pill by mouth twice claudio y, for UTI SULFAMETHOXAZOLE-TRIMETHOPRIM 18150795829 No Longer Active Hope Benavidez MD PhD Active PROLIA 60 MG/ML SUBCUTANEOUS SOLUTION 1 shot every 6 months for osteoprosis DENOSUMAB 10088952847 Active Hope Benavidez MD PhD Active CALCIUM + D + K 750-500-40 MG-UNT-MCG ORAL TABLET 1 tab by [facility] twice daily CALCIUM-VITAMIN D-VITAMIN K 82017214022 Active Hope valdez MD PhD Active DAILY VALUE MULTIVITAMIN ORAL TABLET 1 tab by mouth twice daily 201 05/16/14 MULTIPLE VITAMIN 71342148202 Active Hope Benavidez MD PhD Acti ve FISH OIL 306 MG CAPS 1 tab by mouth three times daily OMEGA-3 FATTY ACIDS 58686211458 Active Hope Benavidez MD PhD Active LUTEIN 10 MG ORAL TABLET 1 tab daily LUTEIN 03311649 408 Active Hope Benavidez MD PhD Active TRIAMTERENE-HCTZ 37.5-25 MG ORAL TABLET 1 tab by mouth daily 10/22 TRIAMTERENE-HCTZ 61059067643 Active Kylie Holt [employer] Active CYCLOBENZAPRINE HCL 10 MG ORAL TABLET 1 tablet by mout h three times daily as needed for headaches CYCLOBENZAPRINE HCL 01957416157 No Longer Active Adam Yates MD Active OMEPRAZOLE 20 MG ORAL CAPSULE DELAYED RELEASE 1 tablet by mo [facility] daily for GERD OMEPRAZOLE 42922082963 No Longer Active Adam Yates MD Active ZOFRAN 8 MG ORAL TABLET 1 tab by mouth every 12 hours prn 4 ONDANSETRON HCL 35040289777 No Longer Active Adam Yatse MD Active PHENADOZ 25 MG RECTAL SUPPOSITORY 1 every 4 hrs. PRN 2 PROMETHAZINE HCL 46990312570 No Longer Active Adam Yates MD A ctive POTASSIUM CHLORIDE 20 MEQ ORAL PACKET by mouth twice a day prn 2 POTASSIUM CHLORIDE 58006994756 No Longer Active Adam Carpenter MD Active PROMETHAZINE HCL 25 MG ORAL TABLET 1 Q. 4 hr. PRN PROMETHAZINE HCL 49304148912 No Longer Active Adam Yates MD Active INNOPRAN XL 120 MG ORAL CAPSULE EXTENDED RELEASE 24 HO UR Take one by mouth daily PROPRANOLOL HCL SR BEADS 01391621190 No Longer Active Adam Yates MD Active FLAGYL 500 MG ORAL TABLET 1 pill by mouth three times daily, for diarrhea METRONIDAZOLE 96318332673 No Longer Active Hope landers MD PhD Active DYAZIDE 37.5-25 MG ORAL CAPSULE 1 qd TRIA MTERENE-HCTZ 27367019813 No Longer Active Hope Benavidez MD PhD Active PROZAC 20 MG ORAL CAPSULE 1 q d FLUOXETINE HCL 93648114769 No Longer Active Hope Benavidez MD PhD Active SIMVASTATIN 40 MG ORAL TABLET 1 qd SIMVAS TATIN 02932642549 No Longer Active Adam Yates MD Active MELOXICAM 15 MG ORAL TABLET 1 qd MELOXICAM 84896892821 No Longer Active Adam Yates MD Active EXCEDRIN EXTRA STRENGTH 250-250-65 MG ORAL TABLET 1-2 q6h VT N headache [id number] 42661356486 Active Hope Benavidez MD PhD Active FLAGYL 500 MG ORAL TABLET 1 qid METRONIDAZOL E 29497599115 No Longer Active Adam Yates MD Active LEVAQUIN 750 MG ORAL TABLET 1 qd LEVOFLOXAC IN 66699201954 No Longer Active Adam Yates MD Active ADULT ASPIRIN LOW STRENGTH 81 MG ORAL TABLET DISINTEGRATING 1 qd ASPIRIN 01619957685 Active Hope Benavidez MD PhD Active LEVAQUIN 750 MG ORAL TABLET 1 qd LEVAQUIN 750 MG ORAL TABLET 254748 LEVOFLOXACIN Inactive FLAGYL 500 MG ORAL TABLET 1 qid FLAGYL 500 MG ORAL TABLET 132281 METRONIDAZOLE Inactive MELOXICAM 15 MG ORAL TABLET 1 qd MELOXICAM 15 MG ORAL TABLET 663581 MELOXICAM Inactive SIMVASTATIN 40 MG ORAL TABLET 1 qd SIMVASTATIN 40 MG ORAL TABLET 947716 SIMVASTATIN Inactive PROZAC 20 MG ORAL CAPSULE 1 q d PROZAC 20 MG ORAL CAPSULE 201029 FLUOXETINE HCL Inactive DYAZIDE 37.5-25 MG ORAL CAPSULE 1 qd 5 DYAZIDE 37.5-25 MG ORAL CAPSULE 996203 TRIAMTERENE-HCTZ Inactive INNOPRAN XL 120 MG ORAL CAPSULE EXTENDED RELEASE 24 HO UR Take one by mouth daily INNOPRAN XL 120 MG ORAL CAPSULE EXTENDED RELEASE 24 HOUR PROPRANOLOL HCL SR BEADS Inactive PROMETHAZINE HCL 25 MG ORAL TABLET 1 Q. 4 hr. PRN 2013 PROMETHAZINE HCL 25 MG ORAL TABLET 917947 PROMETHAZINE HCL Inactive POTASSIUM CHLORIDE 20 MEQ ORAL PACKET by mouth twice a day prn 2 POTASSIUM CHLORIDE 20 MEQ ORAL PACKET 7151038 POTASSIUM CHLORIDE Inactive PHENADOZ 25 MG RECTAL SUPPOSITORY 1 every 4 hrs. PRN 2 PHENADOZ 25 MG RECTAL SUPPOSITORY 538483 PROMETHAZINE HCL Inactive ZOFRAN 8 MG ORAL TABLET 1 tab by mouth every 12 hours prn 4 ZOFRAN 8 MG ORAL TABLET 362795 ONDANSETRON HCL Inactive OMEPRAZOLE 20 MG ORAL CAPSULE DELAYED RELEASE 1 tablet by mo uth daily for GERD OMEPRAZOLE 20 MG ORAL CAPSULE DELAYED RELEASE 19 8051 OMEPRAZOLE Inactive CYCLOBENZAPRINE HCL 10 MG ORAL TABLET 1 tablet by mout h three times daily as needed for headaches CYCLOBENZAPRINE HCL 10 MG ORAL TABLET 202355 CYCLOBENZAPRINE HCL Inactive VITAMIN D3 4000 IU 1 tab 3 times daily VITAMIN D3 4000 IU Inactive PROPRANOLOL HCL 80 MG ORAL TABLET 1 tab tue. and thur. PROPRANOLOL HCL 80 MG ORAL TABLET 907756 PROPRANOLOL HCL Inacti ve CYANOCOBALAMIN 1000 MCG/ML INJECTION SOLUTION 1 injection ev ruben 2 weeks CYANOCOBALAMIN 1000 MCG/ML INJECTION SOLUTION 30 9594 CYANOCOBALAMIN Inactive MAGNESIUM GLUCONATE 250 MG ORAL TABLET 1 tab tid 20 23/10/23 MAGNESIUM GLUCONATE 250 MG ORAL TABLET 396111 MAGNESIUM GLUCONATE Inactive LOMOTIL 2.5-0.025 MG ORAL TABLET 1 tab by mouth prn 20 23/10/23 LOMOTIL 2.5-0.025 MG ORAL TABLET 3847371 DIPHENOXYLATE-ATROPINE Inac tive FLORANEX ORAL PACKET 1 pack three times daily, for bowel health FLORANEX ORAL PACKET 32916977278 LACTOBACILLUS Inactive IRON 325 (65 Fe) MG ORAL TABLET 1 every other day 2015 IRON 325 (65 Fe) MG ORAL TABLET 780312 FERROUS SULFATE Inactive FLAGYL 500 MG ORAL TABLET 1 pill by mouth three times daily, for diarrhea FLAGYL 500 MG ORAL TABLET 017143 METRONIDAZOLE I nactive BACTRIM DS 800-160 MG ORAL TABLET 1 pill by mouth twice claudio y, for UTI BACTRIM DS 800-160 MG ORAL TABLET 745719 SULFAMETHOXAZOLE-TRIMETHOPRIM Inactive Advance Directives Directive Description Start [...] ... - Chemistry sodium, serum 141 mmol/L 107-024 9525/01/10 potassium, serum 3.7 mmol/L 3.5-5.2 chloride, serum 101 mmol/L 98-107 carbon dioxide, venous blood 31.0 mmol/L 21.0-32 .0 blood glucose 96 mg/dL 65-95 calcium, serum 9.5 mg/dL 8.5-10.1 urea nitrogen, blood 21 mg/dL 7-18 creatinine, serum 1.40 mg/dL 0.60-1.30 Estimated Glomerular Filtration Rate (calc) 39 (?) mL/min/1.73m2 = OR > 60 mL/min cholesterol, serum 211 mg/dL 161-141 9689/01/10 triglyceride, serum, fasting 77 mg/dL 30-200 HDL [...] - Chem istry sodium, serum 142 mmol/L 998-484 0225/04/19 carbon dioxide, venous blood 30.2 mmol/L 21.0-32 [...] - Chelle radha sodium, serum 142 mmol/L 513-963 7557/11/02 potassium, serum 3.4 mmol/L 3.5-5.2 chloride, serum [...] mg/dL Encounters Code Encounter Date Provider Facility CPT-77604 [id number] Vst-Est Level III 14:29:19 CDT Fiorella Holt [facility] [place] CPT-04115 Level 2 Est. Patient 14:58:26 CDT Kylie Lund [facility] [place] [facility] [place] CPT-51823 Level 3 Est. Patient 08:15:24 PATIENT APPOINTMENT COORDINATOR Kylie Lund [facility] [place] [facility] [place] CPT-05548 Level 2 Est. Patient 14:27:16 PATIENT APPOINTMENT COORDINATOR Kylie Lund [facility] [place] [facility] [place] CPT-14379 Level 3 Est. Patient 17:54:48 CDT Kylie Lund [facility] [place] [facility] [place] CPT-26042 Level 3 Est. Patient 16:26:30 CDT Kinachrista blackmon [facility] CPT-84690 Level 3 New Patient 16:22:01 PATIENT APPOINTMENT COORDINATOR Adam Yates MD [facility] CPT-31336 Level 4 Est. Patient 17:00:48 CDT Kylie Lund [facility] [place] [facility] [place] CPT-78851 Level 3 Est. Patient 13:15:54 CDT Kylie Lund [facility] CPT-40795 Level 3 Est. Patient 09:10:11 CDT Kylie Kevon [facility] CPT-95885 Level 4 Est. Patient 12:08:30 PATIENT APPOINTMENT COORDINATOR Hope cohn MD PhD [facility] CPT-33050 Level 4 Est. Patient 19:08:42 PATIENT APPOINTMENT COORDINATOR Hope cohn MD [facility] CPT-33783 Level 4 Est. Patient 20:04:51 CDT Hope cohn MD PhD [facility] CPT-42967 Level 3 New Patient 01:46:11 PATIENT APPOINTMENT COORDINATOR Hope landers MD PhD [facility] Procedures Code Procedure Name Date Entry Date Standard Desc ription CPT-63896 First Vx - Ix admin for Medicare patients 02/08 10:02:45 CDT CPT-37726 Fluzone Quadrivalent Intramuscular Suspe nsion 0.5 ML 10:02:45 CDT CPT-17506 Magnesium - LAB USE ONLY 09:41:00 CDT 12/09 CPT-56631 Renal Panel - LAB USE ONLY 09:41:00 CDT 201 09/17/01 CPT-92569 Venipuncture Draw Fee 09:41:00 CDT CPT-55025 Calcium - LAB USE ONLY 17:25:11 CDT CPT-J0897 Prolia 60 mg 15:10:59 CDT CPT-28474 Abx/Therapy Injection 15:10:59 CDT CPT-G0439 Subsequent Annual Wellness Exam 14:29:19 CDT CPT-81612 Venipuncture Draw Fee 10:59:04 CDT CPT-27037 CMP - LAB USE ONLY 10:59:04 CDT CPT-05085 CBC with Diff - LAB USE ONLY 10:59:03 CDT 2 CPT-J0897 Prolia 60 mg 15:46:54 PATIENT APPOINTMENT COORDINATOR CPT-34245 Abx/Therapy Injection 15:46:54 PATIENT APPOINTMENT COORDINATOR CPT-37525 Microalbumin - LAB USE ONLY 09:41:32 PATIENT APPOINTMENT COORDINATOR 20 23/01/15 CPT-39234 Free T4 - LAB USE ONLY 09:41:32 PATIENT APPOINTMENT COORDINATOR CPT-31532 TSH - LAB USE ONLY 09:41:32 PATIENT APPOINTMENT COORDINATOR CPT-17865 BMP - LAB USE ONLY 09:41:32 PATIENT APPOINTMENT COORDINATOR CPT-52225 Venipuncture Draw Fee 09:41:32 PATIENT APPOINTMENT COORDINATOR CPT-78975 First Vx - Ix admin for Medicare patients 11:19:30 CDT CPT-62724 Fluzone High-Dose Intramuscular Suspension 12/07 11:19:30 CDT CPT-J0897 Prolia 60 mg 14:55:42 CDT CPT-91821 Abx/Therapy Injection 14:55:42 CDT CPT-29306 Bone Density - XRAY USE ONLY 10:27:12 CDT 2 CPT-G0439 Subsequent Annual Wellness Exam 17:54:53 CDT CPT-99741 Foot, left, comp min 3V - XRAY USE ONLY 12:22:49 CDT CPT-G0009 Administration of Pneumococcal Vaccine 3 12:18:00 CDT CPT-10264 Pneumovax 23 Injection Injectable 25 MCG /0.5ML 12:18:00 CDT CPT-J0897 Prolia 60 mg 14:14:16 PATIENT APPOINTMENT COORDINATOR CPT-21499 Abx/Therapy Injection 14:14:15 PATIENT APPOINTMENT COORDINATOR CPT-33363 Lipid - LAB USE ONLY 10:01:52 PATIENT APPOINTMENT COORDINATOR 2 CPT-14988 Calcium - LAB USE ONLY 10:01:51 PATIENT APPOINTMENT COORDINATOR CPT-69499 Venipuncture Draw Fee 10:01:51 PATIENT APPOINTMENT COORDINATOR CPT-LR Lesion Removal 16:22:01 PATIENT APPOINTMENT COORDINATOR CPT-89484 TSH - LAB USE ONLY 14:26:02 CDT CPT-67652 CMP - LAB USE ONLY 14:26:01 CDT CPT-96787 CBC with Diff - LAB USE ONLY 14:26:01 CDT 2 CPT-02308 Venipuncture Draw Fee 14:26:01 CDT CPT-84903 First Vx - Ix admin for Medicare patients 13:27:08 CDT CPT-80288 Fluzone High-Dose Intramuscular Suspension 11/26 13:27:08 CDT CPT-G0438 Initial Annual Wellness Exam 14:19:57 CD T CPT-G0009 Administration of Pneumococcal Vaccine 9 11:36:25 CDT CPT-09530 Prevnar 13 Intramuscular Suspension 1 1:36:25 CDT CPT-00388 Prevnar 13 Intramuscular Suspension 1 0:40:58 CDT CPT-J0897 Prolia 60 mg 10:37:16 CDT CPT-69891 Abx/Therapy Injection 10:37:16 CDT CPT-J0897 Prolia 60 mg 16:09:34 PATIENT APPOINTMENT COORDINATOR CPT-J0897 Prolia 60 mg 11:10:35 PATIENT APPOINTMENT COORDINATOR CPT-77064 Abx/Therapy Injection 11:10:35 PATIENT APPOINTMENT COORDINATOR CPT-000 Give Appropriate Flu Vaccine 17:01:15 PATIENT APPOINTMENT COORDINATOR 2 CPT-58987 Fluzone High Dose (65+) 15:03:08 PATIENT APPOINTMENT COORDINATOR 02/15 CPT-56649 Immunization Single Admin 15:03:08 PATIENT APPOINTMENT COORDINATOR 2014 CPT-OV Office Visit 15:58:06 CDT CPT-J0897 Prolia 60 mg 08:45:38 CDT CPT-29206 Abx/Therapy Injection 08:45:38 CDT CPT-J3420 Vitamin B12 1000mcg (Cyanocobalamin) 09:26:20 PATIENT APPOINTMENT COORDINATOR CPT-86564 Abx/Therapy Injection 09:26:20 PATIENT APPOINTMENT COORDINATOR CPT-J3420 Vitamin B12 1000mcg (Cyanocobalamin) 09:44:40 PATIENT APPOINTMENT COORDINATOR CPT-88552 Abx/Therapy Injection 09:44:40 PATIENT APPOINTMENT COORDINATOR CPT-J3420 Vitamin B12 1000mcg (Cyanocobalamin) 09:15:54 PATIENT APPOINTMENT COORDINATOR CPT-46414 Abx/Therapy Injection 09:15:54 PATIENT APPOINTMENT COORDINATOR CPT-J3420 Vitamin B12 1000mcg (Cyanocobalamin) 09:46:44 PATIENT APPOINTMENT COORDINATOR CPT-86342 Abx/Therapy Injection 09:46:44 PATIENT APPOINTMENT COORDINATOR CPT-J3420 Vitamin B12 1000mcg (Cyanocobalamin) 09:47:34 PATIENT APPOINTMENT COORDINATOR CPT-70436 Abx/Therapy Injection 09:47:34 PATIENT APPOINTMENT COORDINATOR CPT-J3420 Vitamin B12 1000mcg (Cyanocobalamin) 14:35:50 PATIENT APPOINTMENT COORDINATOR CPT-J3420 Vitamin B12 1000mcg (Cyanocobalamin) 09:25:05 PATIENT APPOINTMENT COORDINATOR CPT-25063 Abx/Therapy Injection 09:25:05 PATIENT APPOINTMENT COORDINATOR CPT-G0008 Administration of Influenza Virus Vaccine 13:36:47 CDT CPT-69658 Fluzone High-Dose Intramuscular Suspension 11/15 13:36:47 CDT CPT-J0897 Prolia 60 mg 08:50:41 CDT CPT-14909 Abx/Therapy Injection 08:50:41 CDT CPT-51741 Bone Density 12:06:12 CDT CPT-20313 Bone Density 08:54:40 CDT CPT-OV Office Visit 15:37:02 CDT CPT-37981 Postop F/U Visit 15:47:49 CDT CPT-96151 Postop F/U Visit 15:21:02 CDT CPT-TCMH Transitional Care Mgmt-High 07:52:27 CDT 20 20/06/01 CPT-60204 Venipuncture Draw Fee 13:51:18 CDT CPT-55529 Venipuncture Draw Fee 10:14:55 PATIENT APPOINTMENT COORDINATOR CPT-46320 Venipuncture Draw Fee 13:39:45 PATIENT APPOINTMENT COORDINATOR CPT-OV Office Visit 15:11:22 PATIENT APPOINTMENT COORDINATOR CPT-17329 Venipuncture Draw Fee 09:20:49 PATIENT APPOINTMENT COORDINATOR CPT-92467 Venipuncture Draw Fee 16:52:15 PATIENT APPOINTMENT COORDINATOR CPT-22088 Venipuncture Draw Fee 10:37:24 PATIENT APPOINTMENT COORDINATOR CPT-25188 Venipuncture Draw Fee 08:21:21 PATIENT APPOINTMENT COORDINATOR CPT-61333 Venipuncture Draw Fee 08:30:20 PATIENT APPOINTMENT COORDINATOR CPT-54314 Venipuncture Draw Fee 14:53:21 PATIENT APPOINTMENT COORDINATOR CPT-26905 Venipuncture Draw Fee 09:40:56 PATIENT APPOINTMENT COORDINATOR CPT-08219 Venipuncture Draw Fee 10:30:47 PATIENT APPOINTMENT COORDINATOR CPT-47147 Venipuncture Draw Fee 10:46:17 PATIENT APPOINTMENT COORDINATOR CPT-56398 Venipuncture Draw Fee 11:12:45 PATIENT APPOINTMENT COORDINATOR CPT-23182 Venipuncture Draw Fee 09:53:33 PATIENT APPOINTMENT COORDINATOR CPT-44721 Venipuncture Draw Fee 11:53:51 PATIENT APPOINTMENT COORDINATOR CPT-86691 Venipuncture Draw Fee 10:33:50 PATIENT APPOINTMENT COORDINATOR CPT-19664 Venipuncture Draw Fee 10:05:01 PATIENT APPOINTMENT COORDINATOR CPT-26049 Venipuncture Draw Fee 14:32:52 PATIENT APPOINTMENT COORDINATOR CPT-69088 Venipuncture Draw Fee 09:46:13 PATIENT APPOINTMENT COORDINATOR CPT-73056 Venipuncture Draw Fee 11:34:27 PATIENT APPOINTMENT COORDINATOR CPT-95040 Venipuncture Draw Fee 13:17:16 PATIENT APPOINTMENT COORDINATOR CPT-84902 Venipuncture Draw Fee 12:05:39 CDT CPT-46575 Venipuncture Draw Fee 12:49:12 CDT CPT-78431 Venipuncture Draw Fee 12:37:18 CDT CPT-95120 Venipuncture Draw Fee 10:57:11 CDT CPT-79277 Venipuncture Draw Fee 13:47:40 CDT CPT-02821 Venipuncture Draw Fee 10:02:17 CDT CPT-92727 TB Tubersol 17:32:32 CDT CPT-OV Office Visit 16:21:53 CDT CPT-OV Office Visit 15:49:22 CDT CPT-OV Office Visit 17:16:31 CDT CPT-OV Office Visit 10:43:31 CDT
--- OUTSIDE RECORDS SUMMARY | 2019-02-09 12:04 | XMS REPORT | Clinical Summary ---
Author Author Renaldo, Florecita Munoz Organization [facility] Address Unknown Phone Unavailable Allergies, Adverse Reactions, [...] PhD Hyperpotassemia GERD 530.81 Resolved Kylie Yokum RN LIAISON Esophageal reflux Health maintenance exam V70.0 Resolved Adolfo Yates MD Routine general medical examination at a health care facility Anemia 285.9 Resolved Kylie Yanet RN LIAISON Anemia, unspecified Personal history of malignant neoplasm of large intestine V10.05 Active Adam Yates MD Personal history of malignant neoplasm of large intestine Hypomagnesemia 275.2 Resolved Kylie Yanet RN LIAISON Disorders of magnesium metabolism Weakness 780.79 Resolved [...] Sebaceous cyst, scalp 706.2 Resolved Kylie Yokum RN LIAISON Sebaceous cyst Cervical lymphadenopathy, anterior, left 785.6 Resolv ed Kylie Yokum RN LIAISON Enlargement of lymph nodes Need for prophylactic vaccination and inoculation against in fluenza V04.81 Resolved Adam Yates MD Need for prophylactic vaccination and inoculation against influenza Preventive health care V70.0 Resolved Kylie Escalonaku m RN LIAISON Routine general medical examination at a health care facility Thyroid nodule, left 241.0 Active Kylie Yokum A PRN Nontoxic uninodular goiter Screening mammogram V76.12 Resolved Kylie Yokum A PRN Other screening mammogram Mandy 706.2 Resolved Kylie Yokum RN LIAISON Sebaceous cyst Colon cancer, ascending 153.6 Resolved Kylie Yok um RN LIAISON Malignant neoplasm of ascending colon Foot pain, left 729.5 Resolved Kylie Yokum RN LIAISON Pain in limb Splinter 919.6 Resolved Kylie Yokum RN LIAISON Superficial foreign body (splinter) of other, multiple, and unspecified sites, without major open wound and without mention of infection Rash 782.1 Resolved Kylie Yokum RN LIAISON Rash and other nonspecific skin eruption Cyst 706.2 Resolved Kylie Yokum RN LIAISON Sebaceous cyst Body Mass Index 23.0-23.9 Adult Active Kylie Yokum RN LIAISON Body Mass Index between 19-24, adult Unspecified fall, initial encounter E888.9 Inactive Kylie Holt RN LIAISON Unspecified fall Eye pain, left 379.91 Inactive Kylie Holt RN LIAISON Pain in or around eye Pharyngitis, acute 074.0 Active Kylie Holt APR N Herpangina Chronic kidney disease stage 2 585.2 Active Rosemarie Gresham RN Chronic kidney disease, Stage II (mild) Hypomagnesemia 275.2 Active Rosemarie Gresham RN Disorders of magnesium metabolism Hypokalemia 276.8 Active Rosemaire Gresham RN Hypopotassemia Enlarged thyroid 240.9 Active Citlaly Roland A Goiter, unspecified ABDOMINAL PAIN, RIGHT LOWER QUADRANT ICD-789.03 Inactive Kina Joshua RN LIAISON ADENOCARCINOMA, COLON, 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 Dick Yates MD ABDOMINAL PAIN, GENERALIZED ICD-789.07 Inactive Hope Benavidez MD PhD FEVER UNSPECIFIED ICD-780.60 Inactive Hope cohn MD PhD UNSPECIFIED VENOUS INSUFFICIENCY ICD-459.81 Elda ctive Adam Yates MD ADENOCARCINOMA, 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 Inac tive Hope Benavidez MD PhD Hyperkalemia ICD-276.7 Inactive Hope Benavidez MD PhD GERD ICD-530.81 Inactive Kylie Holt RN LIAISON 2015 Health maintenance exam ICD-V70.0 Inactive Adolfo Yates MD Anemia ICD-285.9 Inactive Kylie Yokum RN LIAISON 07/24 Hypomagnesemia ICD-275.2 Inactive Kylie Yokum RN LIAISON Weakness ICD-780.79 Inactive Hope Benavidez MD P hD Colon cancer ICD-153.9 Inactive Adam luna MD Asymptomatic postmenopausal status (age-related) (natural) I CD-V49.81 Inactive Hope Benavidez MD PhD Diarrhea, functional ICD-564.5 Inactive Selena Yates MD Dysuria ICD-788.1 Inactive Hope Benavidez MD PhD 201 05/19/01 Adenocarcinoma, ascending colon ICD-153.6 Inac tive Adam Yates MD Aftercare following surgery of the teeth,oral cavity a nd digestive system, NEC ICD-V58.75 Inactive Adam Yates MD Cervical lymphadenopathy, anterior, left ICD-785.6 Inactive Kylie Escalonagabbium RN LIAISON Need for prophylactic vaccination and inoculation against in fluenza ICD-V04.81 Inactive Adam Yates MD Preventive health care ICD-V70.0 Inactive Ka thi Yokum RN LIAISON Screening mammogram ICD-V76.12 Inactive Kylie Yokum RN LIAISON Mandy ICD-706.2 Inactive Kylie Yokum RN LIAISON 07/20 Colon cancer, ascending ICD-153.6 Inactive K athi Yokum RN LIAISON Foot pain, left ICD-729.5 Inactive Kylie Holt RN LIAISON Splinter ICD-919.6 Inactive Kylie Lundum RN LIAISON 2017 Rash ICD-782.1 Inactive Kylie Lundum RN LIAISON 07/25 Cyst ICD-706.2 Inactive Kylie Lundum RN LIAISON 08/11 Unspecified fall, initial encounter ICD-E888.9 Inactive Kylie Holt RN LIAISON Eye pain, left ICD-379.91 Inactive Kylie Holt RN LIAISON Sebaceous cyst, scalp ICD-706.2 Inactive Tracy Holt RN LIAISON Medication List Medication Instructions Start Date Stop Date Generic Name NDC Status Provider Patient Instruction VOLTAREN 1 % TRANSDERMAL GEL apply 2 grams q 6-8 hour to left arm as needed for pain DICLOFENAC SODIUM 48523571268 Active Kylie Holt APR N Active IMODIUM A-D 2 MG ORAL TABLET 1 tablet twice a day LOPERAMIDE HCL 83570212135 Active Kylie Holt APRN Active COQ10 100 MG ORAL CAPSULE 1 daily COENZYME Q10 088186 60053 Active LETY Nation Active VITAMIN D3 2000 UNIT ORAL CAPSULE Melaleuca-One daily CHOLECALCIFEROL 52709048844 Active Kylie Holt APRN Active PROBIOTIC DAILY ORAL CAPSULE Take one daily PROBIO TIC PRODUCT 98780355463 Active Kylie Holt APRN Active IRON 325 (65 Fe) MG ORAL TABLET 1 every other day FERROUS SULFATE 09135869674 No Longer Active Kylie Holt APRN Active FLORANEX ORAL PACKET 1 pack three times daily, for bowel health LACTOBACILLUS 78093996065 No Longer Active Kylie Holt APRN Active LOMOTIL 2.5-0.025 MG ORAL TABLET 1 tab by mouth prn 20 23/10/23 DIPHENOXYLATE-ATROPINE 59543390842 No Longer Active Kylie Yokum RN LIAISON Active MAGNESIUM GLUCONATE 250 MG ORAL TABLET 1 tab tid 23/10/23 MAGNESIUM GLUCONATE 41641983416 No Longer Active Kylie Yokum RN LIAISON Active CYANOCOBALAMIN 1000 MCG/ML INJECTION SOLUTION 1 injection ev ruben 2 weeks CYANOCOBALAMIN 13231680019 No Longer Active Kylie Yok um RN LIAISON Active ATENOLOL 25 MG ORAL TABLET 1/2 pill by mouth daily, fo r headaches, blood pressure ATENOLOL 99307955752 Active Kylie Yokum RN LIAISON Active PROPRANOLOL HCL 80 MG ORAL TABLET 1 tab tue. and thur. PROPRANOLOL HCL 12023651920 No Longer Active Hope Benavidez MD PhD A ctive VITAMIN D3 4000 IU 1 tab 3 times daily VITAMIN D3 4000 IU No Longer Active Hope Benavidez MD PhD Active BACTRIM DS 800-160 MG ORAL TABLET 1 pill by mouth twice claudio y, for UTI SULFAMETHOXAZOLE-TRIMETHOPRIM 85464074642 No Longer Active Hope Benavidez MD PhD Active PROLIA 60 MG/ML SUBCUTANEOUS SOLUTION 1 shot every 6 months for osteoprosis DENOSUMAB 98801465871 Active Hope Benavidez MD PhD Active CALCIUM + D + K 750-500-40 MG-UNT-MCG ORAL TABLET 1 tab by m [facility] twice daily CALCIUM-VITAMIN D-VITAMIN K 78891117476 Active Hope valdez MD PhD Active DAILY VALUE MULTIVITAMIN ORAL TABLET 1 tab by mouth twice daily 201 05/16/14 MULTIPLE VITAMIN 85866721389 Active Hope Benavidez MD PhD Acti ve FISH OIL 306 MG CAPS 1 tab by mouth three times daily OMEGA-3 FATTY ACIDS 09234921442 Active Hope Benavidez MD PhD Active LUTEIN 10 MG ORAL TABLET 1 tab daily LUTEIN 49190029 408 Active Hope Benavidez MD PhD Active TRIAMTERENE-HCTZ 37.5-25 MG ORAL TABLET 1 tab by mouth daily 10/22 TRIAMTERENE-HCTZ 73005494637 Active Kylie Holt RN LIAISON Active CYCLOBENZAPRINE HCL 10 MG ORAL TABLET 1 tablet by mout three times daily as needed for headaches CYCLOBENZAPRINE HCL 23220145593 No Longer Active Adam Yates MD Active OMEPRAZOLE 20 MG ORAL CAPSULE DELAYED RELEASE 1 tablet by mo [facility] daily for GERD OMEPRAZOLE 94900771798 No Longer Active Adam Yates MD Active ZOFRAN 8 MG ORAL TABLET 1 tab by mouth every 12 hours prn 4 ONDANSETRON HCL 15311021846 No Longer Active Adam Yates MD Active PHENADOZ 25 MG RECTAL SUPPOSITORY 1 every 4 hrs. PRN 2 PROMETHAZINE HCL 36256350381 No Longer Active Adam Yates MD A ctive POTASSIUM CHLORIDE 20 MEQ ORAL PACKET by mouth twice a day prn 2 POTASSIUM CHLORIDE 38298655392 No Longer Active Adam Carpenter MD Active PROMETHAZINE HCL 25 MG ORAL TABLET 1 Q. 4 hr. PRN PROMETHAZINE HCL 63628165319 No Longer Active Adam Yates MD Active INNOPRAN XL 120 MG ORAL CAPSULE EXTENDED RELEASE 24 HO UR Take one by mouth daily PROPRANOLOL HCL SR BEADS 72783085574 No Longer Active Adam Yates MD Active FLAGYL 500 MG ORAL TABLET 1 pill by mouth three times daily, for diarrhea METRONIDAZOLE 72748800667 No Longer Active Hope landers MD PhD Active DYAZIDE 37.5-25 MG ORAL CAPSULE 1 qd TRIA MTERENE-HCTZ 56190686545 No Longer Active Hope Benavidez MD PhD Active PROZAC 20 MG ORAL CAPSULE 1 q d FLUOXETINE HCL 80144847963 No Longer Active Hope Benavidez MD PhD Active SIMVASTATIN 40 MG ORAL TABLET 1 qd SIMVAS TATIN 11547540799 No Longer Active Adam Yates MD Active MELOXICAM 15 MG ORAL TABLET 1 qd MELOXICAM 81376193982 No Longer Active Adam Yates MD Active EXCEDRIN EXTRA STRENGTH 250-250-65 MG ORAL TABLET 1-2 q6h IL N headache QBHXBCA-HROLIMEGAINMV-SWLKUNHC 27737079884 Active Hope Benavidez MD PhD Active FLAGYL 500 MG ORAL TABLET 1 qid METRONIDAZOL E 52448964620 No Longer Active Adam Yates MD Active LEVAQUIN 750 MG ORAL TABLET 1 qd LEVOFLOXAC IN 02299748826 No Longer Active Adam Yates MD Active ADULT ASPIRIN LOW STRENGTH 81 MG ORAL TABLET DISINTEGRATING 1 qd ASPIRIN 27847059436 Active Hope Benavidez MD PhD Active LEVAQUIN 750 MG ORAL TABLET 1 qd LEVAQUIN 750 MG ORAL TABLET 805739 LEVOFLOXACIN Inactive FLAGYL 500 MG ORAL TABLET 1 qid FLAGYL 500 MG ORAL TABLET 397273 METRONIDAZOLE Inactive MELOXICAM 15 MG ORAL TABLET 1 qd MELOXICAM 15 MG ORAL TABLET 174563 MELOXICAM Inactive SIMVASTATIN 40 MG ORAL TABLET 1 qd SIMVASTATIN 40 MG ORAL TABLET 053391 SIMVASTATIN Inactive PROZAC 20 MG ORAL CAPSULE 1 q d PROZAC 20 MG ORAL CAPSULE 318954 FLUOXETINE HCL Inactive DYAZIDE 37.5-25 MG ORAL CAPSULE 1 qd 5 DYAZIDE 37.5-25 MG ORAL CAPSULE 491088 TRIAMTERENE-HCTZ Inactive INNOPRAN XL 120 MG ORAL CAPSULE EXTENDED RELEASE 24 HO UR Take one by mouth daily INNOPRAN XL 120 MG ORAL CAPSULE EXTENDED RELEASE 24 HOUR PROPRANOLOL HCL SR BEADS Inactive PROMETHAZINE HCL 25 MG ORAL TABLET 1 Q. 4 hr. PRN 2013 PROMETHAZINE HCL 25 MG ORAL TABLET 513682 PROMETHAZINE HCL Inactive POTASSIUM CHLORIDE 20 MEQ ORAL PACKET by mouth twice a day prn 2 POTASSIUM CHLORIDE 20 MEQ ORAL PACKET 0657890 POTASSIUM CHLORIDE Inactive PHENADOZ 25 MG RECTAL SUPPOSITORY 1 every 4 hrs. PRN 2 PHENADOZ 25 MG RECTAL SUPPOSITORY 964451 PROMETHAZINE HCL Inactive ZOFRAN 8 MG ORAL TABLET 1 tab by mouth every 12 hours prn 4 ZOFRAN 8 MG ORAL TABLET 625014 ONDANSETRON HCL Inactive OMEPRAZOLE 20 MG ORAL CAPSULE DELAYED RELEASE 1 tablet by mo uth daily for GERD OMEPRAZOLE 20 MG ORAL CAPSULE DELAYED RELEASE 19 8051 OMEPRAZOLE Inactive CYCLOBENZAPRINE HCL 10 MG ORAL TABLET 1 tablet by mout h three times daily as needed for headaches CYCLOBENZAPRINE HCL 10 MG ORAL TABLET 473524 CYCLOBENZAPRINE HCL Inactive VITAMIN D3 4000 IU 1 tab 3 times daily VITAMIN D3 4000 IU Inactive PROPRANOLOL HCL 80 MG ORAL TABLET 1 tab tue. and thur. PROPRANOLOL HCL 80 MG ORAL TABLET 899927 PROPRANOLOL HCL Inacti ve CYANOCOBALAMIN 1000 MCG/ML INJECTION SOLUTION 1 injection ev ruben 2 weeks CYANOCOBALAMIN 1000 MCG/ML INJECTION SOLUTION 30 9594 CYANOCOBALAMIN Inactive MAGNESIUM GLUCONATE 250 MG ORAL TABLET 1 tab tid 23/10/23 MAGNESIUM GLUCONATE 250 MG ORAL TABLET 834397 MAGNESIUM GLUCONATE Inactive LOMOTIL 2.5-0.025 MG ORAL TABLET 1 tab by mouth prn 20 23/10/23 LOMOTIL 2.5-0.025 MG ORAL TABLET 4758762 DIPHENOXYLATE-ATROPINE Inac tive FLORANEX ORAL PACKET 1 pack three times daily, for bowel health FLORANEX ORAL PACKET 01189579769 LACTOBACILLUS Inactive IRON 325 (65 Fe) MG ORAL TABLET 1 every other day 2015 IRON 325 (65 Fe) MG ORAL TABLET 099589 FERROUS SULFATE Inactive FLAGYL 500 MG ORAL TABLET 1 pill by mouth three times daily, for diarrhea FLAGYL 500 MG ORAL TABLET 594135 METRONIDAZOLE I nactive BACTRIM DS 800-160 MG ORAL TABLET 1 pill by mouth twice claudio y, for UTI BACTRIM DS 800-160 MG ORAL TABLET 454760 SULFAMETHOXAZOLE-TRIMETHOPRIM Inactive Advance Directives Directive Description Start [...] ... - Chemistry sodium, serum 141 mmol/L 141-269 0235/01/10 potassium, serum 3.7 mmol/L 3.5-5.2 chloride, serum 101 mmol/L 98-107 carbon dioxide, venous blood 31.0 mmol/L 21.0-32 .0 blood glucose 96 mg/dL 65-95 calcium, serum 9.5 mg/dL 8.5-10.1 urea nitrogen, blood 21 mg/dL 7-18 creatinine, serum 1.40 mg/dL 0.60-1.30 Estimated Glomerular Filtration Rate (calc) 39 (?) mL/min/1.73m2 = OR > 60 mL/min cholesterol, serum 211 mg/dL 299-184 2125/01/10 triglyceride, serum, fasting 77 mg/dL 30-200 HDL [...] - Chem istry sodium, serum 142 mmol/L 501-203 4481/04/19 carbon dioxide, venous blood 30.2 mmol/L 21.0-32 [...] - Chelle radha sodium, serum 142 mmol/L 005-379 4365/11/02 potassium, serum 3.4 mmol/L 3.5-5.2 chloride, serum [...] mg/dL Encounters Code Encounter Date Provider Facility CPT-39038 [id number] Vst-Est Level III 14:29:19 CDT Fiorella Holt [facility] CPT-40442 Level 2 Est. Patient 14:58:26 CDT Kylie Lund [facility] CPT-24553 Level 3 Est. Patient 08:15:24 OBEDIENCE TRAINER Kylie Lund [facility] CPT-17425 Level 2 Est. Patient 14:27:16 OBEDIENCE TRAINER Kylie Lund [facility] CPT-69182 Level 3 Est. Patient 17:54:48 CDT Kylie Lund [facility] CPT-95355 Level 3 Est. Patient 16:26:30 CDT Kinachrista blackmon [facility] CPT-13894 Level 3 New Patient 16:22:01 OBEDIENCE TRAINER Adam Yates MD [facility] CPT-91581 Level 4 Est. Patient 17:00:48 CDT Kylie Lund [facility] CPT-39228 Level 3 Est. Patient 13:15:54 CDT Kylie Lund [facility] CPT-94425 Level 3 Est. Patient 09:10:11 CDT Kylie Kevon [facility] CPT-87368 Level 4 Est. Patient 12:08:30 OBEDIENCE TRAINER Hope cohn MD [facility] CPT-57858 Level 4 Est. Patient 19:08:42 OBEDIENCE TRAINER Hope cohn MD PhD [facility] CPT-34138 Level 4 Est. Patient 20:04:51 CDT Hope cohn MD PhD [facility] CPT-69539 Level 3 New Patient 01:46:11 OBEDIENCE TRAINER Hope landers MD PhD [facility] Procedures Code Procedure Name Date Entry Date Standard Desc ription CPT-44170 Sono Soft Tissue Head and Neck - XRAY US E ONLY 11:56:06 OBEDIENCE TRAINER CPT-33584 Abx/Therapy Injection 09:40:08 OBEDIENCE TRAINER CPT-J0897 Prolia 60 mg 09:40:08 OBEDIENCE TRAINER CPT-41865 First Vx - Ix admin for Medicare patients 02/08 10:02:45 CDT CPT-98919 Fluzone Quadrivalent Intramuscular Suspe nsion 0.5 ML 10:02:45 CDT CPT-71472 Magnesium - LAB USE ONLY 09:41:00 CDT 12/09 CPT-10224 Renal Panel - LAB USE ONLY 09:41:00 CDT 201 09/17/01 CPT-02926 Venipuncture Draw Fee 09:41:00 CDT CPT-00243 Calcium - LAB USE ONLY 17:25:11 CDT CPT-J0897 Prolia 60 mg 15:10:59 CDT CPT-87874 Abx/Therapy Injection 15:10:59 CDT CPT-G0439 [facility] Annual Wellness Exam 14:29:19 CDT CPT-56563 Venipuncture Draw Fee 10:59:04 CDT CPT-73041 CMP - LAB USE ONLY 10:59:04 CDT CPT-31230 CBC with Diff - LAB USE ONLY 10:59:03 CDT 2 CPT-J0897 Prolia 60 mg 15:46:54 OBEDIENCE TRAINER CPT-64369 Abx/Therapy Injection 15:46:54 OBEDIENCE TRAINER CPT-16993 Microalbumin - LAB USE ONLY 09:41:32 OBEDIENCE TRAINER 20 23/01/15 CPT-06144 Free T4 - LAB USE ONLY 09:41:32 OBEDIENCE TRAINER CPT-95203 TSH - LAB USE ONLY 09:41:32 OBEDIENCE TRAINER CPT-69794 BMP - LAB USE ONLY 09:41:32 OBEDIENCE TRAINER CPT-54750 Venipuncture Draw Fee 09:41:32 OBEDIENCE TRAINER CPT-53164 First Vx - Ix admin for Medicare patients 11:19:30 CDT CPT-38065 Fluzone High-Dose Intramuscular Suspension 12/07 11:19:30 CDT CPT-J0897 Prolia 60 mg 14:55:42 CDT CPT-61319 Abx/Therapy Injection 14:55:42 CDT CPT-32052 Bone Density - XRAY USE ONLY 10:27:12 CDT 2 CPT-G0439 Subsequent Annual Wellness Exam 17:54:53 CDT CPT-41942 Foot, left, comp min 3V - XRAY USE ONLY 12:22:49 CDT CPT-G0009 Administration of Pneumococcal Vaccine 3 12:18:00 CDT CPT-60507 Pneumovax 23 Injection Injectable 25 MCG /0.5ML 12:18:00 CDT CPT-J0897 Prolia 60 mg 14:14:16 OBEDIENCE TRAINER CPT-50540 Abx/Therapy Injection 14:14:15 OBEDIENCE TRAINER CPT-13187 Lipid - LAB USE ONLY 10:01:52 OBEDIENCE TRAINER 2 CPT-88904 Calcium - LAB USE ONLY 10:01:51 OBEDIENCE TRAINER CPT-41641 Venipuncture Draw Fee 10:01:51 OBEDIENCE TRAINER CPT-LR Lesion Removal 16:22:01 OBEDIENCE TRAINER CPT-96502 TSH - LAB USE ONLY 14:26:02 CDT CPT-26111 CMP - LAB USE ONLY 14:26:01 CDT CPT-89746 CBC with Diff - LAB USE ONLY 14:26:01 CDT 2 CPT-23544 Venipuncture Draw Fee 14:26:01 CDT CPT-99288 First Vx - Ix admin for Medicare patients 13:27:08 CDT CPT-03924 Fluzone High-Dose Intramuscular Suspension 11/26 13:27:08 CDT CPT-G0438 Initial Annual Wellness Exam 14:19:57 CD T CPT-G0009 Administration of Pneumococcal Vaccine 9 11:36:25 CDT CPT-36684 Prevnar 13 Intramuscular Suspension 1 1:36:25 CDT CPT-32652 Prevnar 13 Intramuscular Suspension 1 0:40:58 CDT CPT-J0897 Prolia 60 mg 10:37:16 CDT CPT-41551 Abx/Therapy Injection 10:37:16 CDT CPT-J0897 Prolia 60 mg 16:09:34 OBEDIENCE TRAINER CPT-J0897 Prolia 60 mg 11:10:35 OBEDIENCE TRAINER CPT-90827 Abx/Therapy Injection 11:10:35 OBEDIENCE TRAINER CPT-000 Give Appropriate Flu Vaccine 17:01:15 OBEDIENCE TRAINER 2 CPT-28173 Fluzone High Dose (65+) 15:03:08 OBEDIENCE TRAINER 02/15 CPT-34843 Immunization Single Admin 15:03:08 OBEDIENCE TRAINER 2014 CPT-OV Office Visit 15:58:06 CDT CPT-J0897 Prolia 60 mg 08:45:38 CDT CPT-77802 Abx/Therapy Injection 08:45:38 CDT CPT-J3420 Vitamin B12 1000mcg (Cyanocobalamin) 09:26:20 OBEDIENCE TRAINER CPT-68533 Abx/Therapy Injection 09:26:20 OBEDIENCE TRAINER CPT-J3420 Vitamin B12 1000mcg (Cyanocobalamin) 09:44:40 OBEDIENCE TRAINER CPT-54913 Abx/Therapy Injection 09:44:40 OBEDIENCE TRAINER CPT-J3420 Vitamin B12 1000mcg (Cyanocobalamin) 09:15:54 OBEDIENCE TRAINER CPT-47277 Abx/Therapy Injection 09:15:54 OBEDIENCE TRAINER CPT-J3420 Vitamin B12 1000mcg (Cyanocobalamin) 09:46:44 OBEDIENCE TRAINER CPT-83133 Abx/Therapy Injection 09:46:44 OBEDIENCE TRAINER CPT-J3420 Vitamin B12 1000mcg (Cyanocobalamin) 09:47:34 OBEDIENCE TRAINER CPT-99018 Abx/Therapy Injection 09:47:34 OBEDIENCE TRAINER CPT-J3420 Vitamin B12 1000mcg (Cyanocobalamin) 14:35:50 OBEDIENCE TRAINER CPT-J3420 Vitamin B12 1000mcg (Cyanocobalamin) 09:25:05 OBEDIENCE TRAINER CPT-47380 Abx/Therapy Injection 09:25:05 OBEDIENCE TRAINER CPT-G0008 Administration of Influenza Virus Vaccine 13:36:47 CDT CPT-85767 Fluzone High-Dose Intramuscular Suspension 11/15 13:36:47 CDT CPT-J0897 Prolia 60 mg 08:50:41 CDT CPT-62780 Abx/Therapy Injection 08:50:41 CDT CPT-89672 Bone Density 12:06:12 CDT CPT-20142 Bone Density 08:54:40 CDT CPT-OV Office Visit 15:37:02 CDT CPT-51599 Postop F/U Visit 15:47:49 CDT CPT-77606 Postop F/U Visit 15:21:02 CDT CPT-[facility] Transitional Care Mgmt-High 07:52:27 CDT 20 20/06/01 CPT-33092 Venipuncture Draw Fee 13:51:18 CDT CPT-92051 Venipuncture Draw Fee 10:14:55 OBEDIENCE TRAINER CPT-32431 Venipuncture Draw Fee 13:39:45 OBEDIENCE TRAINER CPT-OV Office Visit 15:11:22 OBEDIENCE TRAINER CPT-94736 Venipuncture Draw Fee 09:20:49 OBEDIENCE TRAINER CPT-40948 Venipuncture Draw Fee 16:52:15 OBEDIENCE TRAINER CPT-10766 Venipuncture Draw Fee 10:37:24 OBEDIENCE TRAINER CPT-39128 Venipuncture Draw Fee 08:21:21 OBEDIENCE TRAINER CPT-51348 Venipuncture Draw Fee 08:30:20 OBEDIENCE TRAINER CPT-46725 Venipuncture Draw Fee 14:53:21 OBEDIENCE TRAINER CPT-58331 Venipuncture Draw Fee 09:40:56 OBEDIENCE TRAINER CPT-20946 Venipuncture Draw Fee 10:30:47 OBEDIENCE TRAINER CPT-36395 Venipuncture Draw Fee 10:46:17 OBEDIENCE TRAINER CPT-86127 Venipuncture Draw Fee 11:12:45 OBEDIENCE TRAINER CPT-45897 Venipuncture Draw Fee 09:53:33 OBEDIENCE TRAINER CPT-05123 Venipuncture Draw Fee 11:53:51 OBEDIENCE TRAINER CPT-61199 Venipuncture Draw Fee 10:33:50 OBEDIENCE TRAINER CPT-09292 Venipuncture Draw Fee 10:05:01 OBEDIENCE TRAINER CPT-16191 Venipuncture Draw Fee 14:32:52 OBEDIENCE TRAINER CPT-66280 Venipuncture Draw Fee 09:46:13 OBEDIENCE TRAINER CPT-70243 Venipuncture Draw Fee 11:34:27 OBEDIENCE TRAINER CPT-43808 Venipuncture Draw Fee 13:17:16 OBEDIENCE TRAINER CPT-22263 Venipuncture Draw Fee 12:05:39 CDT CPT-51030 Venipuncture Draw Fee 12:49:12 CDT CPT-08475 Venipuncture Draw Fee 12:37:18 CDT CPT-23273 Venipuncture Draw Fee 10:57:11 CDT CPT-60123 Venipuncture Draw Fee 13:47:40 CDT CPT-20078 Venipuncture Draw Fee 10:02:17 CDT CPT-84818 TB Tubersol 17:32:32 CDT CPT-OV Office Visit 16:21:53 CDT CPT-OV Office Visit 15:49:22 CDT CPT-OV Office Visit 17:16:31 CDT CPT-OV Office Visit 10:43:31 CDT
--- OUTSIDE RECORDS SUMMARY | 2019-02-09 12:05 | XMS REPORT | Clinical Summary ---
Author Author Admin, Florecita Munoz Organization [facility] Address Unknown Phone Unavailable Allergies, Adverse Reactions, [...] Sebaceous cyst, scalp 706.2 Resolved Kylie Yokum STRATEGIC SOURCING SPECIALIST Sebaceous cyst Cervical lymphadenopathy, anterior, left 785.6 Resolv ed Kylie Yokum STRATEGIC SOURCING SPECIALIST Enlargement of lymph nodes Need for prophylactic vaccination and inoculation against in fluenza V04.81 Resolved Adam Yates MD Need for prophylactic vaccination and inoculation against influenza Preventive health care V70.0 Resolved Kylie Yoku m STRATEGIC SOURCING SPECIALIST Routine general medical examination at a health care facility Thyroid nodule, left 241.0 Active Kylie Yokum A PRN Nontoxic uninodular goiter Screening mammogram V76.12 Resolved Kylie Yokum A PRN Other screening mammogram Mandy 706.2 Resolved Kylie Yokum STRATEGIC SOURCING SPECIALIST Sebaceous cyst Colon cancer, ascending 153.6 Resolved Kylie Yok um STRATEGIC SOURCING SPECIALIST Malignant neoplasm of ascending colon Foot pain, left 729.5 Resolved Kylie Yokum STRATEGIC SOURCING SPECIALIST Pain in limb Splinter 919.6 Resolved Kylie Yokum STRATEGIC SOURCING SPECIALIST Superficial foreign body (splinter) of other, multiple, and unspecified sites, without major open wound and without mention of infection Rash 782.1 Resolved Kylie Yokum STRATEGIC SOURCING SPECIALIST Rash and other nonspecific skin eruption Cyst 706.2 Resolved Kylie Yokum STRATEGIC SOURCING SPECIALIST Sebaceous cyst Body Mass Index 23.0-23.9 Adult Active Kylie Yokum STRATEGIC SOURCING SPECIALIST Body Mass Index between 19-24, adult Unspecified fall, initial encounter E888.9 Inactive Kylie Holt STRATEGIC SOURCING SPECIALIST Unspecified fall Eye pain, left 379.91 Inactive Kylie Holt STRATEGIC SOURCING SPECIALIST Pain in or around eye Pharyngitis, acute [...] RIGHT LOWER QUADRANT ICD-789.03 Inactive Kina Joshua STRATEGIC SOURCING SPECIALIST ADENOCARCINOMA, COLON, 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 Dick Yates MD ABDOMINAL PAIN, GENERALIZED ICD-789.07 Inactive Hope Benavidez MD PhD FEVER UNSPECIFIED ICD-780.60 Inactive Hope cohn MD PhD UNSPECIFIED VENOUS INSUFFICIENCY ICD-459.81 [place] ctive Adam Yates MD ADENOCARCINOMA, 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 Inac tive Hope Benavidez MD PhD Hyperkalemia ICD-276.7 Inactive Hope Benavidez MD PhD GERD ICD-530.81 Inactive Kylie Yanet STRATEGIC SOURCING SPECIALIST 2015 Health maintenance exam ICD-V70.0 Inactive Adolfo Yates MD Anemia ICD-285.9 Inactive Kylie Yokum STRATEGIC SOURCING SPECIALIST 07/24 Hypomagnesemia ICD-275.2 Inactive Kylie Yokum STRATEGIC SOURCING SPECIALIST Weakness ICD-780.79 Inactive Hope Benavidez MD [...] cyst, scalp ICD-706.2 Inactive Tracy shubham Yokum STRATEGIC SOURCING SPECIALIST Cervical lymphadenopathy, anterior, left ICD-785.6 Inactive Kylie Yokum STRATEGIC SOURCING SPECIALIST Need for prophylactic vaccination and inoculation against in fluenza ICD-V04.81 Inactive Adam Yates MD Preventive health care ICD-V70.0 Inactive Ka thi Yokum STRATEGIC SOURCING SPECIALIST Screening mammogram ICD-V76.12 Inactive Kylie Yokum STRATEGIC SOURCING SPECIALIST Mandy ICD-706.2 Inactive Kylie Yokum STRATEGIC SOURCING SPECIALIST 2017/ 06/13 Colon cancer, ascending ICD-153.6 Inactive K umang Holt STRATEGIC SOURCING SPECIALIST Foot pain, left ICD-729.5 Inactive Kylie Holt STRATEGIC SOURCING SPECIALIST Splinter ICD-919.6 Inactive Kylie Holt STRATEGIC SOURCING SPECIALIST 2017 Rash ICD-782.1 Inactive Kylie Lundum STRATEGIC SOURCING SPECIALIST 07/25 Cyst ICD-706.2 Inactive Kylie Holt STRATEGIC SOURCING SPECIALIST 08/11 Unspecified fall, initial encounter ICD-E888.9 Inactive Kylie Holt STRATEGIC SOURCING SPECIALIST Eye pain, left ICD-379.91 Inactive Kylie Holt STRATEGIC SOURCING SPECIALIST Medication List Medication Instructions Start Date Stop Date Generic Name NDC Status Provider Patient Instruction VOLTAREN 1 % TRANSDERMAL GEL apply 2 grams q 6-8 hour to left arm as needed for pain DICLOFENAC SODIUM 62026573765 Active Kylie Holt APR N Active IMODIUM A-D 2 MG ORAL TABLET 1 tablet twice a day LOPERAMIDE HCL 30084192153 Active Kylie Holt APRN Active COQ10 100 MG ORAL CAPSULE 1 daily COENZYME Q10 202053 67514 Active LETY Nation Active VITAMIN D3 2000 UNIT ORAL CAPSULE Melaleuca-One daily CHOLECALCIFEROL 35204762451 Active Kylie Holt APRN Active PROBIOTIC DAILY ORAL CAPSULE Take one daily PROBIO TIC PRODUCT 52401355257 Active Kylie Holt APRN Active IRON 325 (65 Fe) MG ORAL TABLET 1 every other day FERROUS SULFATE 93125758523 No Longer Active Kylie Holt APRN Active FLORANEX ORAL PACKET 1 pack three times daily, for bowel health LACTOBACILLUS 94433688664 No Longer Active Kylie Holt APRN Active LOMOTIL 2.5-0.025 MG ORAL TABLET 1 tab by mouth prn 20 23/10/23 DIPHENOXYLATE-ATROPINE 89821980844 No Longer Active Kylie Yokum STRATEGIC SOURCING SPECIALIST Active MAGNESIUM GLUCONATE 250 MG ORAL TABLET 1 tab tid 23/10/23 MAGNESIUM GLUCONATE 95788418020 No Longer Active Kylie Yokum STRATEGIC SOURCING SPECIALIST Active CYANOCOBALAMIN 1000 MCG/ML INJECTION SOLUTION 1 injection ev ruben 2 weeks CYANOCOBALAMIN 43537346797 No Longer Active Kylie Yok um STRATEGIC SOURCING SPECIALIST Active ATENOLOL 25 MG ORAL TABLET 1/2 pill by mouth daily, fo r headaches, blood pressure ATENOLOL 51100893889 Active Kylie Yokum STRATEGIC SOURCING SPECIALIST Active PROPRANOLOL HCL 80 MG ORAL TABLET 1 tab tue. and thur. PROPRANOLOL HCL 64736121510 No Longer Active Hope Benavidez MD PhD A ctive VITAMIN D3 4000 IU 1 tab 3 times daily VITAMIN D3 4000 IU No Longer Active Hope Benavidez MD PhD Active BACTRIM DS 800-160 MG ORAL TABLET 1 pill by mouth twice claudio y, for UTI SULFAMETHOXAZOLE-TRIMETHOPRIM 60953688362 No Longer Active Hope Benavidez MD PhD Active PROLIA 60 MG/ML SUBCUTANEOUS SOLUTION 1 shot every 6 months for osteoprosis DENOSUMAB 53960275831 Active Hope Benavidez MD PhD Active CALCIUM + D + K 750-500-40 MG-UNT-MCG ORAL TABLET 1 tab by [facility] twice daily CALCIUM-VITAMIN D-VITAMIN K 47877841531 Active Hope valdez MD PhD Active DAILY VALUE MULTIVITAMIN ORAL TABLET 1 tab by mouth twice daily 201 05/16/14 MULTIPLE VITAMIN 67373309826 Active Hope Benavidez MD PhD Acti ve FISH OIL 306 MG CAPS 1 tab by mouth three times daily OMEGA-3 FATTY ACIDS 53047905881 Active Hope Benavidez MD PhD Active LUTEIN 10 MG ORAL TABLET 1 tab daily LUTEIN 88574248 408 Active Hope Benavidez MD PhD Active TRIAMTERENE-HCTZ 37.5-25 MG ORAL TABLET 1 tab by mouth daily 10/22 TRIAMTERENE-HCTZ 45114256720 Active Kylie Holt STRATEGIC SOURCING SPECIALIST Active CYCLOBENZAPRINE HCL 10 MG ORAL TABLET 1 tablet by mout h three times daily as needed for headaches CYCLOBENZAPRINE HCL 49630554915 No Longer Active Adam Yates MD Active OMEPRAZOLE 20 MG ORAL CAPSULE DELAYED RELEASE 1 tablet by mo [facility] daily for GERD OMEPRAZOLE 33512324396 No Longer Active Adam Yates MD Active ZOFRAN 8 MG ORAL TABLET 1 tab by mouth every 12 hours prn 4 ONDANSETRON HCL 05220152604 No Longer Active Adam Yates MD Active PHENADOZ 25 MG RECTAL SUPPOSITORY 1 every 4 hrs. PRN 2 PROMETHAZINE HCL 71607941072 No Longer Active Adam Yates MD A ctive POTASSIUM CHLORIDE 20 MEQ ORAL PACKET by mouth twice a day prn 2 POTASSIUM CHLORIDE 75646745003 No Longer Active Adam Carpenter MD Active PROMETHAZINE HCL 25 MG ORAL TABLET 1 Q. 4 hr. PRN PROMETHAZINE HCL 26925536613 No Longer Active Adam Yates MD Active INNOPRAN XL 120 MG ORAL CAPSULE EXTENDED RELEASE 24 HO UR Take one by mouth daily PROPRANOLOL HCL SR BEADS 41126482819 No Longer Active Adam Yates MD Active FLAGYL 500 MG ORAL TABLET 1 pill by mouth three times daily, for diarrhea METRONIDAZOLE 32418587994 No Longer Active Hope landers MD PhD Active DYAZIDE 37.5-25 MG ORAL CAPSULE 1 qd TRIA MTERENE-HCTZ 14553450369 No Longer Active Hope Benavidez MD PhD Active PROZAC 20 MG ORAL CAPSULE 1 q d FLUOXETINE HCL 17311501409 No Longer Active Hope Benavidez MD PhD Active SIMVASTATIN 40 MG ORAL TABLET 1 qd SIMVAS TATIN 72520303636 No Longer Active Adam Yates MD Active MELOXICAM 15 MG ORAL TABLET 1 qd MELOXICAM 48845884295 No Longer Active Adam Yates MD Active EXCEDRIN EXTRA STRENGTH 250-250-65 MG ORAL TABLET 1-2 q6h VA N headache [id number] 10965414208 Active Hope Benavidez MD PhD Active FLAGYL 500 MG ORAL TABLET 1 qid METRONIDAZOL E 70943718911 No Longer Active Adam Yates MD Active LEVAQUIN 750 MG ORAL TABLET 1 qd LEVOFLOXAC IN 86754813449 No Longer Active Adam Yates MD Active ADULT ASPIRIN LOW STRENGTH 81 MG ORAL TABLET DISINTEGRATING 1 qd ASPIRIN 45109086529 Active Hope Benavidez MD PhD Active LEVAQUIN 750 MG ORAL TABLET 1 qd LEVAQUIN 750 MG ORAL TABLET 561330 LEVOFLOXACIN Inactive FLAGYL 500 MG ORAL TABLET 1 qid FLAGYL 500 MG ORAL TABLET 826679 METRONIDAZOLE Inactive MELOXICAM 15 MG ORAL TABLET 1 qd MELOXICAM 15 MG ORAL TABLET 081829 MELOXICAM Inactive SIMVASTATIN 40 MG ORAL TABLET 1 qd SIMVASTATIN 40 MG ORAL TABLET 511237 SIMVASTATIN Inactive PROZAC 20 MG ORAL CAPSULE 1 q d PROZAC 20 MG ORAL CAPSULE 889205 FLUOXETINE HCL Inactive DYAZIDE 37.5-25 MG ORAL CAPSULE 1 qd 5 DYAZIDE 37.5-25 MG ORAL CAPSULE 284446 TRIAMTERENE-HCTZ Inactive INNOPRAN XL 120 MG ORAL CAPSULE EXTENDED RELEASE 24 HO UR Take one by mouth daily INNOPRAN XL 120 MG ORAL CAPSULE EXTENDED RELEASE 24 HOUR PROPRANOLOL HCL SR BEADS Inactive PROMETHAZINE HCL 25 MG ORAL TABLET 1 Q. 4 hr. PRN 2013 PROMETHAZINE HCL 25 MG ORAL TABLET 065631 PROMETHAZINE HCL Inactive POTASSIUM CHLORIDE 20 MEQ ORAL PACKET by mouth twice a day prn 2 POTASSIUM CHLORIDE 20 MEQ ORAL PACKET 1924818 POTASSIUM CHLORIDE Inactive PHENADOZ 25 MG RECTAL SUPPOSITORY 1 every 4 hrs. PRN 2 PHENADOZ 25 MG RECTAL SUPPOSITORY 150942 PROMETHAZINE HCL Inactive ZOFRAN 8 MG ORAL TABLET 1 tab by mouth every 12 hours prn 4 ZOFRAN 8 MG ORAL TABLET 638364 ONDANSETRON HCL Inactive OMEPRAZOLE 20 MG ORAL CAPSULE DELAYED RELEASE 1 tablet by mo uth daily for GERD OMEPRAZOLE 20 MG ORAL CAPSULE DELAYED RELEASE 19 8051 OMEPRAZOLE Inactive CYCLOBENZAPRINE HCL 10 MG ORAL TABLET 1 tablet by mout h three times daily as needed for headaches CYCLOBENZAPRINE HCL 10 MG ORAL TABLET 567258 CYCLOBENZAPRINE HCL Inactive VITAMIN D3 4000 IU 1 tab 3 times daily VITAMIN D3 4000 IU Inactive PROPRANOLOL HCL 80 MG ORAL TABLET 1 tab tue. and thur. PROPRANOLOL HCL 80 MG ORAL TABLET 311349 PROPRANOLOL HCL Inacti ve CYANOCOBALAMIN 1000 MCG/ML INJECTION SOLUTION 1 injection ev ruben 2 weeks CYANOCOBALAMIN 1000 MCG/ML INJECTION SOLUTION 30 9594 CYANOCOBALAMIN Inactive MAGNESIUM GLUCONATE 250 MG ORAL TABLET 1 tab tid 20 23/10/23 MAGNESIUM GLUCONATE 250 MG ORAL TABLET 385023 MAGNESIUM GLUCONATE Inactive LOMOTIL 2.5-0.025 MG ORAL TABLET 1 tab by mouth prn 20 23/10/23 LOMOTIL 2.5-0.025 MG ORAL TABLET 6814877 DIPHENOXYLATE-ATROPINE Inac tive FLORANEX ORAL PACKET 1 pack three times daily, for bowel health FLORANEX ORAL PACKET 14886387758 LACTOBACILLUS Inactive IRON 325 (65 Fe) MG ORAL TABLET 1 every other day 2015 IRON 325 (65 Fe) MG ORAL TABLET 317607 FERROUS SULFATE Inactive FLAGYL 500 MG ORAL TABLET 1 pill by mouth three times daily, for diarrhea FLAGYL 500 MG ORAL TABLET 337014 METRONIDAZOLE I nactive BACTRIM DS 800-160 MG ORAL TABLET 1 pill by mouth twice claudio y, for UTI BACTRIM DS 800-160 MG ORAL TABLET 835379 SULFAMETHOXAZOLE-TRIMETHOPRIM Inactive Advance Directives Directive Description Start [...] ... - Chemistry sodium, serum 141 mmol/L 736-709 6700/01/10 potassium, serum 3.7 mmol/L 3.5-5.2 chloride, serum 101 mmol/L 98-107 carbon dioxide, venous blood 31.0 mmol/L 21.0-32 .0 blood glucose 96 mg/dL 65-95 calcium, serum 9.5 mg/dL 8.5-10.1 urea nitrogen, blood 21 mg/dL 7-18 creatinine, serum 1.40 mg/dL 0.60-1.30 Estimated Glomerular Filtration Rate (calc) 39 (?) mL/min/1.73m2 = OR > 60 mL/min cholesterol, serum 211 mg/dL 917-874 9198/01/10 triglyceride, serum, fasting 77 mg/dL 30-200 HDL [...] - Chem istry sodium, serum 142 mmol/L 591-419 1669/04/19 carbon dioxide, venous blood 30.2 mmol/L 21.0-32 [...] - Chelle radha sodium, serum 142 mmol/L 111-992 4410/11/02 potassium, serum 3.4 mmol/L 3.5-5.2 chloride, serum [...] mg/dL Encounters Code Encounter Date Provider Facility CPT-05354 [id number] Vst-Est Level III 14:29:19 CDT Fiorella Holt [facility] CPT-36225 Level 2 Est. Patient 14:58:26 CDT Kylie Lund [facility] CPT-66326 Level 3 Est. Patient 08:15:24 CLAIMS ATTORNEY Kylie Lund [facility] CPT-22215 Level 2 Est. Patient 14:27:16 CLAIMS ATTORNEY Kylie Lund [facility] CPT-43991 Level 3 Est. Patient 17:54:48 CDT Kylie Lund [facility] CPT-39536 Level 3 Est. Patient 16:26:30 CDT Kinachrista blackmon [facility] CPT-11280 Level 3 New Patient 16:22:01 CLAIMS ATTORNEY Adam Yates MD [facility] CPT-65116 Level 4 Est. Patient 17:00:48 CDT Kylie Lund [facility] CPT-53474 Level 3 Est. Patient 13:15:54 CDT Kylie Lund [facility] CPT-14046 Level 3 Est. Patient 09:10:11 CDT Kylie Kevon [facility] CPT-95241 Level 4 Est. Patient 12:08:30 CLAIMS ATTORNEY Hope cohn MD PhD [facility] CPT-40160 Level 4 Est. Patient 19:08:42 CLAIMS ATTORNEY Hope cohn MD [facility] CPT-94694 Level 4 Est. Patient 20:04:51 CDT Hope cohn MD PhD [facility] CPT-93879 Level 3 New Patient 01:46:11 CLAIMS ATTORNEY Hope landers MD PhD [facility] Procedures Code Procedure Name Date Entry Date Standard Desc ription CPT-92500 First Vx - Ix admin for Medicare patients 02/08 10:02:45 CDT CPT-99268 Fluzone Quadrivalent Intramuscular Suspe nsion 0.5 ML 10:02:45 CDT CPT-77996 Magnesium - LAB USE ONLY 09:41:00 CDT 12/09 CPT-83866 Renal Panel - LAB USE ONLY 09:41:00 CDT 201 09/17/01 CPT-60033 Venipuncture Draw Fee 09:41:00 CDT CPT-43007 Calcium - LAB USE ONLY 17:25:11 CDT CPT-J0897 Prolia 60 mg 15:10:59 CDT CPT-22642 Abx/Therapy Injection 15:10:59 CDT CPT-G0439 Subsequent Annual Wellness Exam 14:29:19 CDT CPT-62088 Venipuncture Draw Fee 10:59:04 CDT CPT-90791 CMP - LAB USE ONLY 10:59:04 CDT CPT-32270 CBC with Diff - LAB USE ONLY 10:59:03 CDT 2 CPT-J0897 Prolia 60 mg 15:46:54 CLAIMS ATTORNEY CPT-47338 Abx/Therapy Injection 15:46:54 CLAIMS ATTORNEY CPT-90263 Microalbumin - LAB USE ONLY 09:41:32 CLAIMS ATTORNEY 20 23/01/15 CPT-42707 Free T4 - LAB USE ONLY 09:41:32 CLAIMS ATTORNEY CPT-20383 TSH - LAB USE ONLY 09:41:32 CLAIMS ATTORNEY CPT-49546 BMP - LAB USE ONLY 09:41:32 CLAIMS ATTORNEY CPT-56088 Venipuncture Draw Fee 09:41:32 CLAIMS ATTORNEY CPT-07791 First Vx - Ix admin for Medicare patients 11:19:30 CDT CPT-39343 Fluzone High-Dose Intramuscular Suspension 12/07 11:19:30 CDT CPT-J0897 Prolia 60 mg 14:55:42 CDT CPT-42926 Abx/Therapy Injection 14:55:42 CDT CPT-78138 Bone Density - XRAY USE ONLY 10:27:12 CDT 2 CPT-G0439 Subsequent Annual Wellness Exam 17:54:53 CDT CPT-68111 Foot, left, comp min 3V - XRAY USE ONLY 12:22:49 CDT CPT-G0009 Administration of Pneumococcal Vaccine 3 12:18:00 CDT CPT-34941 Pneumovax 23 Injection Injectable 25 MCG /0.5ML 12:18:00 CDT CPT-J0897 Prolia 60 mg 14:14:16 CLAIMS ATTORNEY CPT-15106 Abx/Therapy Injection 14:14:15 CLAIMS ATTORNEY CPT-56758 Lipid - LAB USE ONLY 10:01:52 CLAIMS ATTORNEY 2 CPT-33117 Calcium - LAB USE ONLY 10:01:51 CLAIMS ATTORNEY CPT-90794 Venipuncture Draw Fee 10:01:51 CLAIMS ATTORNEY CPT-LR Lesion Removal 16:22:01 CLAIMS ATTORNEY CPT-85734 TSH - LAB USE ONLY 14:26:02 CDT CPT-28679 CMP - LAB USE ONLY 14:26:01 CDT CPT-44771 CBC with Diff - LAB USE ONLY 14:26:01 CDT 2 CPT-34106 Venipuncture Draw Fee 14:26:01 CDT CPT-59836 First Vx - Ix admin for Medicare patients 13:27:08 CDT CPT-93608 Fluzone High-Dose Intramuscular Suspension 11/26 13:27:08 CDT CPT-G0438 Initial Annual Wellness Exam 14:19:57 CD T CPT-G0009 Administration of Pneumococcal Vaccine 9 11:36:25 CDT CPT-91163 Prevnar 13 Intramuscular Suspension 1 1:36:25 CDT CPT-13985 Prevnar 13 Intramuscular Suspension 1 0:40:58 CDT CPT-J0897 Prolia 60 mg 10:37:16 CDT CPT-86023 Abx/Therapy Injection 10:37:16 CDT CPT-J0897 Prolia 60 mg 16:09:34 CLAIMS ATTORNEY CPT-J0897 Prolia 60 mg 11:10:35 CLAIMS ATTORNEY CPT-37222 Abx/Therapy Injection 11:10:35 CLAIMS ATTORNEY CPT-000 Give Appropriate Flu Vaccine 17:01:15 CLAIMS ATTORNEY 2 CPT-35134 Fluzone High Dose (65+) 15:03:08 CLAIMS ATTORNEY 02/15 CPT-37847 Immunization Single Admin 15:03:08 CLAIMS ATTORNEY 2014 CPT-OV Office Visit 15:58:06 CDT CPT-J0897 Prolia 60 mg 08:45:38 CDT CPT-23751 Abx/Therapy Injection 08:45:38 CDT CPT-J3420 Vitamin B12 1000mcg (Cyanocobalamin) 09:26:20 CLAIMS ATTORNEY CPT-91407 Abx/Therapy Injection 09:26:20 CLAIMS ATTORNEY CPT-J3420 Vitamin B12 1000mcg (Cyanocobalamin) 09:44:40 CLAIMS ATTORNEY CPT-57127 Abx/Therapy Injection 09:44:40 CLAIMS ATTORNEY CPT-J3420 Vitamin B12 1000mcg (Cyanocobalamin) 09:15:54 CLAIMS ATTORNEY CPT-47501 Abx/Therapy Injection 09:15:54 CLAIMS ATTORNEY CPT-J3420 Vitamin B12 1000mcg (Cyanocobalamin) 09:46:44 CLAIMS ATTORNEY CPT-39585 Abx/Therapy Injection 09:46:44 CLAIMS ATTORNEY CPT-J3420 Vitamin B12 1000mcg (Cyanocobalamin) 09:47:34 CLAIMS ATTORNEY CPT-93944 Abx/Therapy Injection 09:47:34 CLAIMS ATTORNEY CPT-J3420 Vitamin B12 1000mcg (Cyanocobalamin) 14:35:50 CLAIMS ATTORNEY CPT-J3420 Vitamin B12 1000mcg (Cyanocobalamin) 09:25:05 CLAIMS ATTORNEY CPT-29344 Abx/Therapy Injection 09:25:05 CLAIMS ATTORNEY CPT-G0008 Administration of Influenza Virus Vaccine 13:36:47 CDT CPT-59403 Fluzone High-Dose Intramuscular Suspension 11/15 13:36:47 CDT CPT-J0897 Prolia 60 mg 08:50:41 CDT CPT-30818 Abx/Therapy Injection 08:50:41 CDT CPT-16094 Bone Density 12:06:12 CDT CPT-56502 Bone Density 08:54:40 CDT CPT-OV Office Visit 15:37:02 CDT CPT-35092 Postop F/U Visit 15:47:49 CDT CPT-06731 Postop F/U Visit 15:21:02 CDT CPT-TCMH Transitional Care Mgmt-High 07:52:27 CDT 20 20/06/01 CPT-13544 Venipuncture Draw Fee 13:51:18 CDT CPT-45149 Venipuncture Draw Fee 10:14:55 CLAIMS ATTORNEY CPT-70179 Venipuncture Draw Fee 13:39:45 CLAIMS ATTORNEY CPT-OV Office Visit 15:11:22 CLAIMS ATTORNEY CPT-13057 Venipuncture Draw Fee 09:20:49 CLAIMS ATTORNEY CPT-73261 Venipuncture Draw Fee 16:52:15 CLAIMS ATTORNEY CPT-78258 Venipuncture Draw Fee 10:37:24 CLAIMS ATTORNEY CPT-33234 Venipuncture Draw Fee 08:21:21 CLAIMS ATTORNEY CPT-73808 Venipuncture Draw Fee 08:30:20 CLAIMS ATTORNEY CPT-61313 Venipuncture Draw Fee 14:53:21 CLAIMS ATTORNEY CPT-17916 Venipuncture Draw Fee 09:40:56 CLAIMS ATTORNEY CPT-27934 Venipuncture Draw Fee 10:30:47 CLAIMS ATTORNEY CPT-80395 Venipuncture Draw Fee 10:46:17 CLAIMS ATTORNEY CPT-28802 Venipuncture Draw Fee 11:12:45 CLAIMS ATTORNEY CPT-87160 Venipuncture Draw Fee 09:53:33 CLAIMS ATTORNEY CPT-93266 Venipuncture Draw Fee 11:53:51 CLAIMS ATTORNEY CPT-59369 Venipuncture Draw Fee 10:33:50 CLAIMS ATTORNEY CPT-73407 Venipuncture Draw Fee 10:05:01 CLAIMS ATTORNEY CPT-22171 Venipuncture Draw Fee 14:32:52 CLAIMS ATTORNEY CPT-08712 Venipuncture Draw Fee 09:46:13 CLAIMS ATTORNEY CPT-46683 Venipuncture Draw Fee 11:34:27 CLAIMS ATTORNEY CPT-22382 Venipuncture Draw Fee 13:17:16 CLAIMS ATTORNEY CPT-37533 Venipuncture Draw Fee 12:05:39 CDT CPT-47232 Venipuncture Draw Fee 12:49:12 CDT CPT-65164 Venipuncture Draw Fee 12:37:18 CDT CPT-46061 Venipuncture Draw Fee 10:57:11 CDT CPT-56433 Venipuncture Draw Fee 13:47:40 CDT CPT-14934 Venipuncture Draw Fee 10:02:17 CDT CPT-45579 TB Tubersol 17:32:32 CDT CPT-OV Office Visit 16:21:53 CDT CPT-OV Office Visit 15:49:22 CDT CPT-OV Office Visit 17:16:31 CDT CPT-OV Office Visit 10:43:31 CDT
--- OUTSIDE RECORDS SUMMARY | 2019-02-09 12:05 | XMS REPORT | Clinical Summary ---
Author Author Renaldo, Florecita Munoz Organization [facility] [employer] Address Unknown Phone Unavailable Allergies, Adverse [...] PhD Hyperpotassemia GERD 530.81 Resolved Kylie Yokum WAGON PERSON Esophageal reflux Health maintenance exam V70.0 Resolved Adolfo Yates MD Routine general medical examination at a health care facility Anemia 285.9 Resolved Kylie Yanet WAGON PERSON Anemia, unspecified Personal history of malignant neoplasm of large intestine V10.05 Active Adam Yates MD Personal history of malignant neoplasm of large intestine Hypomagnesemia 275.2 Resolved Kylie Yanet WAGON PERSON Disorders of magnesium metabolism Weakness 780.79 Resolved [...] Sebaceous cyst, scalp 706.2 Resolved Kylie Yokum WAGON PERSON Sebaceous cyst Cervical lymphadenopathy, anterior, left 785.6 Resolv ed Kylie Yokum WAGON PERSON Enlargement of lymph nodes Need for prophylactic vaccination and inoculation against in fluenza V04.81 Resolved Adam Yates MD Need for prophylactic vaccination and inoculation against influenza Preventive health care V70.0 Resolved Kylie Escalonaku m WAGON PERSON Routine general medical examination at a health care facility Thyroid nodule, left 241.0 Active Kylie Yokum A PRN Nontoxic uninodular goiter Screening mammogram V76.12 Resolved Kylie Yokum A PRN Other screening mammogram Mandy 706.2 Resolved Kylie Yokum WAGON PERSON Sebaceous cyst Colon cancer, ascending 153.6 Resolved Kylie Yok um WAGON PERSON Malignant neoplasm of ascending colon Foot pain, left 729.5 Resolved Kylie Yokum WAGON PERSON Pain in limb Splinter 919.6 Resolved Kylie Yokum WAGON PERSON Superficial foreign body (splinter) of other, multiple, and unspecified sites, without major open wound and without mention of infection Rash 782.1 Resolved Kylie Yokum WAGON PERSON Rash and other nonspecific skin eruption Cyst 706.2 Resolved Kylie Yokum WAGON PERSON Sebaceous cyst Body Mass Index 23.0-23.9 Adult Active Kylie Yokum WAGON PERSON Body Mass Index between 19-24, adult Unspecified fall, initial encounter E888.9 Inactive Kylie Holt WAGON PERSON Unspecified fall Eye pain, left 379.91 Inactive Kylie Holt WAGON PERSON Pain in or around eye Pharyngitis, acute 074.0 Active Kylie Holt APR N Herpangina Chronic kidney disease stage 2 585.2 Active Rosemarie Gresham RN Chronic kidney disease, Stage II (mild) Hypomagnesemia 275.2 Active Rosemarie Gresham RN Disorders of magnesium metabolism Hypokalemia 276.8 Active Rosemarie Gresham RN Hypopotassemia ABDOMINAL PAIN, RIGHT LOWER QUADRANT ICD-789.03 Inactive Kina Joshua WAGON PERSON ADENOCARCINOMA, COLON, 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 Dick Yates MD ABDOMINAL PAIN, GENERALIZED ICD-789.07 Inactive Hope Benavidez MD PhD FEVER UNSPECIFIED ICD-780.60 Inactive Hope cohn MD PhD UNSPECIFIED VENOUS INSUFFICIENCY ICD-459.81 Elda ctive Adam Yates MD ADENOCARCINOMA, 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 Inac tive Hope Benavidez MD PhD Hyperkalemia ICD-276.7 Inactive Hope Benavidez MD PhD GERD ICD-530.81 Inactive Kylie Holt WAGON PERSON 2015 Health maintenance exam ICD-V70.0 Bam Yates MD Anemia ICD-285.9 Inactive Kylie Holt WAGON PERSON 07/24 Hypomagnesemia ICD-275.2 Inactive Kylie Yokum WAGON PERSON Weakness ICD-780.79 Inactive Hope Benavidez MD P [...] cyst, scalp ICD-706.2 Inactive Tracy hi Yokum WAGON PERSON Cervical lymphadenopathy, anterior, left ICD-785.6 Inactive Kylie Yokum WAGON PERSON Need for prophylactic vaccination and inoculation against in fluenza ICD-V04.81 Inactive Adam Yates MD Preventive health care ICD-V70.0 Inactive Ka thi Yokum WAGON PERSON Screening mammogram ICD-V76.12 Inactive Kylie Yokum WAGON PERSON Mandy ICD-706.2 Inactive Kylie Yokum WAGON PERSON 07/20 Colon cancer, ascending ICD-153.6 Inactive K athi Yokum WAGON PERSON Foot pain, left ICD-729.5 Inactive Kylie Holt WAGON PERSON Splinter ICD-919.6 Inactive Kylie Holt WAGON PERSON 2017 Rash ICD-782.1 Inactive Kylie Holt WAGON PERSON 07/25 Cyst ICD-706.2 Inactive Kylie Holt WAGON PERSON 08/11 Unspecified fall, initial encounter ICD-E888.9 Inactive Kylie Holt WAGON PERSON Eye pain, left ICD-379.91 Inactive Kylie Holt APRN Medication List Medication Instructions Start Date Stop Date Generic Name NDC Status Provider Patient Instruction VOLTAREN 1 % TRANSDERMAL GEL apply 2 grams q 6-8 hour to left arm as needed for pain DICLOFENAC SODIUM 81548161427 Active Citlaly Roland Lisa Active IMODIUM A-D 2 MG ORAL TABLET 1 tablet twice a day LOPERAMIDE HCL 20694529776 Active Kylie Holt APRN Active COQ10 100 MG ORAL CAPSULE 1 daily COENZYME Q10 912116 44700 Active LETY Nation Active VITAMIN D3 2000 UNIT ORAL CAPSULE Melaleuca-One daily CHOLECALCIFEROL 22888638085 Active Kylie Holt APRN Active PROBIOTIC DAILY ORAL CAPSULE Take one daily PROBIO TIC PRODUCT 75688031049 Active Kylie Holt APRN Active IRON 325 (65 Fe) MG ORAL TABLET 1 every other day FERROUS SULFATE 65065975653 No Longer Active Kylie Holt APRN Active FLORANEX ORAL PACKET 1 pack three times daily, for bowel health LACTOBACILLUS 06861248085 No Longer Active Kylie Holt APRN Active LOMOTIL 2.5-0.025 MG ORAL TABLET 1 tab by mouth prn 20 23/10/23 DIPHENOXYLATE-ATROPINE 79936444566 No Longer Active Kylie Yokum WAGON PERSON Active MAGNESIUM GLUCONATE 250 MG ORAL TABLET 1 tab tid 23/10/23 MAGNESIUM GLUCONATE 28477671508 No Longer Active Kylie Lundum WAGON PERSON Active CYANOCOBALAMIN 1000 MCG/ML INJECTION SOLUTION 1 injection ev ruben 2 weeks CYANOCOBALAMIN 80141736801 No Longer Active Kylie Lund um WAGON PERSON Active ATENOLOL 25 MG ORAL TABLET 1/2 pill by mouth daily, fo r headaches, blood pressure ATENOLOL 86594431058 Active Kylie Yokum WAGON PERSON Active PROPRANOLOL HCL 80 MG ORAL TABLET 1 tab tue. and thur. PROPRANOLOL HCL 09529022782 No Longer Active Hope Benavidez MD PhD A ctive VITAMIN D3 4000 IU 1 tab 3 times daily VITAMIN D3 4000 IU No Longer Active Hope Benavidez MD PhD Active BACTRIM DS 800-160 MG ORAL TABLET 1 pill by mouth twice claudio y, for UTI SULFAMETHOXAZOLE-TRIMETHOPRIM 34129162864 No Longer Active Hope Benavidez MD PhD Active PROLIA 60 MG/ML SUBCUTANEOUS SOLUTION 1 shot every 6 months for osteoprosis DENOSUMAB 23316351046 Active Hope Benavidez MD PhD Active CALCIUM + D + K 750-500-40 MG-UNT-MCG ORAL TABLET [address] [facility] twice daily CALCIUM-VITAMIN D-VITAMIN K 51274617481 Active Hope valdez MD PhD Active DAILY VALUE MULTIVITAMIN ORAL TABLET 1 tab by mouth twice daily 201 05/16/14 MULTIPLE VITAMIN 69374357990 Active Hope Benavidez MD PhD Acti ve FISH OIL 306 MG CAPS 1 tab by mouth three times daily OMEGA-3 FATTY ACIDS 67050367957 Active Hope Benavidez MD PhD Active LUTEIN 10 MG ORAL TABLET 1 tab daily LUTEIN 37279112 408 Active Hope Benavidez MD PhD Active TRIAMTERENE-HCTZ 37.5-25 MG ORAL TABLET 1 tab by mouth daily 10/22 TRIAMTERENE-HCTZ 69291978153 Active LETY Rossi Activ e CYCLOBENZAPRINE HCL 10 MG ORAL TABLET 1 tablet by mout three times daily as needed for headaches CYCLOBENZAPRINE HCL 09193081565 No Longer Active Adam Yates MD Active OMEPRAZOLE 20 MG ORAL CAPSULE DELAYED RELEASE 1 tablet by mo [facility] daily for GERD OMEPRAZOLE 03133902649 No Longer Active Adam Yates MD Active ZOFRAN 8 MG ORAL TABLET 1 tab by mouth every 12 hours prn 4 ONDANSETRON HCL 86373741002 No Longer Active Adam Yates MD Active PHENADOZ 25 MG RECTAL SUPPOSITORY 1 every 4 hrs. PRN 2 PROMETHAZINE HCL 39235097248 No Longer Active Adam Yates MD A ctive POTASSIUM CHLORIDE 20 MEQ ORAL PACKET by mouth twice a day prn 2 POTASSIUM CHLORIDE 15180373433 No Longer Active Adam Carpenter MD Active PROMETHAZINE HCL 25 MG ORAL TABLET 1 Q. 4 hr. PRN PROMETHAZINE HCL 21296156510 No Longer Active Adam Yates MD Active INNOPRAN XL 120 MG ORAL CAPSULE EXTENDED RELEASE 24 HO UR Take one by mouth daily PROPRANOLOL HCL SR BEADS 24295710017 No Longer Active Adam Yates MD Active FLAGYL 500 MG ORAL TABLET 1 pill by mouth three times daily, for diarrhea METRONIDAZOLE 19574781068 No Longer Active Hope landers MD PhD Active DYAZIDE 37.5-25 MG ORAL CAPSULE 1 qd TRIA MTERENE-HCTZ 94678183071 No Longer Active Hope Benavidez MD PhD Active PROZAC 20 MG ORAL CAPSULE 1 q d FLUOXETINE HCL 55321014867 No Longer Active Hope Benavidez MD PhD Active SIMVASTATIN 40 MG ORAL TABLET 1 qd SIMVAS TATIN 14153916882 No Longer Active Adam Yates MD Active MELOXICAM 15 MG ORAL TABLET 1 qd MELOXICAM 30290791019 No Longer Active Adam Yates MD Active EXCEDRIN EXTRA STRENGTH 250-250-65 MG ORAL TABLET 1-2 q6h UT N headache [id number] 34715743422 Active Hope Benavidez MD PhD Active FLAGYL 500 MG ORAL TABLET 1 qid METRONIDAZOL E 36019931571 No Longer Active Adam Yates MD Active LEVAQUIN 750 MG ORAL TABLET 1 qd LEVOFLOXAC IN 24279873918 No Longer Active Adam Yates MD Active ADULT ASPIRIN LOW STRENGTH 81 MG ORAL TABLET DISINTEGRATING 1 qd ASPIRIN 75192095082 Active Hope Benavidez MD PhD Active LEVAQUIN 750 MG ORAL TABLET 1 qd LEVAQUIN 750 MG ORAL TABLET 083004 LEVOFLOXACIN Inactive FLAGYL 500 MG ORAL TABLET 1 qid FLAGYL 500 MG ORAL TABLET 521660 METRONIDAZOLE Inactive MELOXICAM 15 MG ORAL TABLET 1 qd MELOXICAM 15 MG ORAL TABLET 539825 MELOXICAM Inactive SIMVASTATIN 40 MG ORAL TABLET 1 qd SIMVASTATIN 40 MG ORAL TABLET 146462 SIMVASTATIN Inactive PROZAC 20 MG ORAL CAPSULE 1 q d PROZAC 20 MG ORAL CAPSULE 294892 FLUOXETINE HCL Inactive DYAZIDE 37.5-25 MG ORAL CAPSULE 1 qd 5 DYAZIDE 37.5-25 MG ORAL CAPSULE 539386 TRIAMTERENE-HCTZ Inactive INNOPRAN XL 120 MG ORAL CAPSULE EXTENDED RELEASE 24 HO UR Take one by mouth daily INNOPRAN XL 120 MG ORAL CAPSULE EXTENDED RELEASE 24 HOUR PROPRANOLOL HCL SR BEADS Inactive PROMETHAZINE HCL 25 MG ORAL TABLET 1 Q. 4 hr. PRN 2013 PROMETHAZINE HCL 25 MG ORAL TABLET 767310 PROMETHAZINE HCL Inactive POTASSIUM CHLORIDE 20 MEQ ORAL PACKET by mouth twice a day prn 2 POTASSIUM CHLORIDE 20 MEQ ORAL PACKET 3875132 POTASSIUM CHLORIDE Inactive PHENADOZ 25 MG RECTAL SUPPOSITORY 1 every 4 hrs. PRN 2 PHENADOZ 25 MG RECTAL SUPPOSITORY 467964 PROMETHAZINE HCL Inactive ZOFRAN 8 MG ORAL TABLET 1 tab by mouth every 12 hours prn 4 ZOFRAN 8 MG ORAL TABLET 803777 ONDANSETRON HCL Inactive OMEPRAZOLE 20 MG ORAL CAPSULE DELAYED RELEASE 1 tablet by mo uth daily for GERD OMEPRAZOLE 20 MG ORAL CAPSULE DELAYED RELEASE 19 8051 OMEPRAZOLE Inactive CYCLOBENZAPRINE HCL 10 MG ORAL TABLET 1 tablet by mout h three times daily as needed for headaches CYCLOBENZAPRINE HCL 10 MG ORAL TABLET 114094 CYCLOBENZAPRINE HCL Inactive VITAMIN D3 4000 IU 1 tab 3 times daily VITAMIN D3 4000 IU Inactive PROPRANOLOL HCL 80 MG ORAL TABLET 1 tab tue. and thur. PROPRANOLOL HCL 80 MG ORAL TABLET 872377 PROPRANOLOL HCL Inacti ve CYANOCOBALAMIN 1000 MCG/ML INJECTION SOLUTION 1 injection ev ruben 2 weeks CYANOCOBALAMIN 1000 MCG/ML INJECTION SOLUTION 30 9594 CYANOCOBALAMIN Inactive MAGNESIUM GLUCONATE 250 MG ORAL TABLET 1 tab tid 23/10/23 MAGNESIUM GLUCONATE 250 MG ORAL TABLET 068097 MAGNESIUM GLUCONATE Inactive LOMOTIL 2.5-0.025 MG ORAL TABLET 1 tab by mouth prn 23/10/23 LOMOTIL 2.5-0.025 MG ORAL TABLET 6384250 DIPHENOXYLATE-ATROPINE Inac tive FLORANEX ORAL PACKET 1 pack three times daily, for bowel health FLORANEX ORAL PACKET 79274396591 LACTOBACILLUS Inactive IRON 325 (65 Fe) MG ORAL TABLET 1 every other day 2015 IRON 325 (65 Fe) MG ORAL TABLET 260974 FERROUS SULFATE Inactive FLAGYL 500 MG ORAL TABLET 1 pill by mouth three times daily, for diarrhea FLAGYL 500 MG ORAL TABLET 069049 METRONIDAZOLE I nactive BACTRIM DS 800-160 MG ORAL TABLET 1 pill by mouth twice claudio y, for UTI BACTRIM DS 800-160 MG ORAL TABLET 817359 SULFAMETHOXAZOLE-TRIMETHOPRIM Inactive Advance Directives Directive Description Start [...] ... - Chemistry sodium, serum 141 mmol/L 932-534 8994/01/10 potassium, serum 3.7 mmol/L 3.5-5.2 chloride, serum 101 mmol/L 98-107 carbon dioxide, venous blood 31.0 mmol/L 21.0-32 .0 blood glucose 96 mg/dL 65-95 calcium, serum 9.5 mg/dL 8.5-10.1 urea nitrogen, blood 21 mg/dL 7-18 creatinine, serum 1.40 mg/dL 0.60-1.30 Estimated Glomerular Filtration Rate (calc) 39 (?) mL/min/1.73m2 = OR > 60 mL/min cholesterol, serum 211 mg/dL 633-905 3207/01/10 triglyceride, serum, fasting 77 mg/dL 30-200 HDL [...] - Chem istry sodium, serum 142 mmol/L 088-574 0126/04/19 carbon dioxide, venous blood 30.2 mmol/L 21.0-32 [...] - Chelle radha sodium, serum 142 mmol/L 811-072 4826/11/02 potassium, serum 3.4 mmol/L 3.5-5.2 chloride, serum [...] mg/dL Encounters Code Encounter Date Provider Facility CPT-39843 [id number] Vst-Est Level III 14:29:19 CDT Fiorella Holt [facility] [place] CPT-29713 Level 2 Est. Patient 14:58:26 CDT Kylie boyd [facility] [place] CPT-79345 Level 3 Est. Patient 08:15:24 PUBLIC AID ELIGIBILITY ASSISTANT Kylie Lund [facility] [place] CPT-44376 Level 2 Est. Patient 14:27:16 PUBLIC AID ELIGIBILITY ASSISTANT Kylie Lund [facility] [place] CPT-60505 Level 3 Est. Patient 17:54:48 CDT Kylie boyd [facility] [place] CPT-71833 Level 3 Est. Patient 16:26:30 CDT Kina blackmon [facility] CPT-18806 Level 3 New Patient 16:22:01 PUBLIC AID ELIGIBILITY ASSISTANT Adam Yates MD [facility] CPT-46187 Level 4 Est. Patient 17:00:48 CDT Kylie Lund [facility] [place] CPT-29037 Level 3 Est. Patient 13:15:54 CDT Kylie Lund [facility] CPT-41209 Level 3 Est. Patient 09:10:11 CDT Kylie Lund [facility] CPT-09600 Level 4 Est. Patient 12:08:30 PUBLIC AID ELIGIBILITY ASSISTANT Hope cohn MD PhD [facility] CPT-87118 Level 4 Est. Patient 19:08:42 PUBLIC AID ELIGIBILITY ASSISTANT Hope cohn MD PhD [facility] CPT-55223 Level 4 Est. Patient 20:04:51 CDT Hope cohn MD PhD [facility] CPT-77437 Level 3 New Patient 01:46:11 PUBLIC AID ELIGIBILITY ASSISTANT Hope landers MD PhD [facility] Procedures Code Procedure Name Date Entry Date Standard Desc ription CPT-08758 First Vx - Ix admin for Medicare patients 02/08 10:02:45 CDT CPT-75767 Fluzone Quadrivalent Intramuscular Suspe nsion 0.5 ML 10:02:45 CDT CPT-66721 Magnesium - LAB USE ONLY 09:41:00 CDT 12/09 CPT-01892 Renal Panel - LAB USE ONLY 09:41:00 CDT 201 09/17/01 CPT-46864 Venipuncture Draw Fee 09:41:00 CDT CPT-98438 Calcium - LAB USE ONLY 17:25:11 CDT CPT-J0897 Prolia 60 mg 15:10:59 CDT CPT-25562 Abx/Therapy Injection 15:10:59 CDT CPT-G0439 [facility] Annual Wellness Exam 14:29:19 CDT CPT-32489 Venipuncture Draw Fee 10:59:04 CDT CPT-35760 CMP - LAB USE ONLY 10:59:04 CDT CPT-93118 CBC with Diff - LAB USE ONLY 10:59:03 CDT 2 CPT-J0897 Prolia 60 mg 15:46:54 PUBLIC AID ELIGIBILITY ASSISTANT CPT-97421 Abx/Therapy Injection 15:46:54 PUBLIC AID ELIGIBILITY ASSISTANT CPT-26172 Microalbumin - LAB USE ONLY 09:41:32 PUBLIC AID ELIGIBILITY ASSISTANT 20 23/01/15 CPT-17339 Free T4 - LAB USE ONLY 09:41:32 PUBLIC AID ELIGIBILITY ASSISTANT CPT-05138 TSH - LAB USE ONLY 09:41:32 PUBLIC AID ELIGIBILITY ASSISTANT CPT-68295 BMP - LAB USE ONLY 09:41:32 PUBLIC AID ELIGIBILITY ASSISTANT CPT-62421 Venipuncture Draw Fee 09:41:32 PUBLIC AID ELIGIBILITY ASSISTANT CPT-29458 First Vx - Ix admin for Medicare patients 11:19:30 CDT CPT-32404 Fluzone High-Dose Intramuscular Suspension 12/07 11:19:30 CDT CPT-J0897 Prolia 60 mg 14:55:42 CDT CPT-30062 Abx/Therapy Injection 14:55:42 CDT CPT-34299 Bone Density - XRAY USE ONLY 10:27:12 CDT 2 CPT-G0439 Subsequent Annual Wellness Exam 17:54:53 CDT CPT-44576 Foot, left, comp min 3V - XRAY USE ONLY 12:22:49 CDT CPT-G0009 Administration of Pneumococcal Vaccine 3 12:18:00 CDT CPT-51852 Pneumovax 23 Injection Injectable 25 MCG /0.5ML 12:18:00 CDT CPT-J0897 Prolia 60 mg 14:14:16 PUBLIC AID ELIGIBILITY ASSISTANT CPT-10712 Abx/Therapy Injection 14:14:15 PUBLIC AID ELIGIBILITY ASSISTANT CPT-66259 Lipid - LAB USE ONLY 10:01:52 PUBLIC AID ELIGIBILITY ASSISTANT 2 CPT-57513 Calcium - LAB USE ONLY 10:01:51 PUBLIC AID ELIGIBILITY ASSISTANT CPT-31956 Venipuncture Draw Fee 10:01:51 PUBLIC AID ELIGIBILITY ASSISTANT CPT-LR Lesion Removal 16:22:01 PUBLIC AID ELIGIBILITY ASSISTANT CPT-20737 TSH - LAB USE ONLY 14:26:02 CDT CPT-91814 CMP - LAB USE ONLY 14:26:01 CDT CPT-38947 CBC with Diff - LAB USE ONLY 14:26:01 CDT 2 CPT-85661 Venipuncture Draw Fee 14:26:01 CDT CPT-11043 First Vx - Ix admin for Medicare patients 13:27:08 CDT CPT-89653 Fluzone High-Dose Intramuscular Suspension 11/26 13:27:08 CDT CPT-G0438 Initial Annual Wellness Exam 14:19:57 CD T CPT-G0009 Administration of Pneumococcal Vaccine 9 11:36:25 CDT CPT-20948 Prevnar 13 Intramuscular Suspension 1 1:36:25 CDT CPT-45929 Prevnar 13 Intramuscular Suspension 1 0:40:58 CDT CPT-J0897 Prolia 60 mg 10:37:16 CDT CPT-25350 Abx/Therapy Injection 10:37:16 CDT CPT-J0897 Prolia 60 mg 16:09:34 PUBLIC AID ELIGIBILITY ASSISTANT CPT-J0897 Prolia 60 mg 11:10:35 PUBLIC AID ELIGIBILITY ASSISTANT CPT-30560 Abx/Therapy Injection 11:10:35 PUBLIC AID ELIGIBILITY ASSISTANT CPT-000 Give Appropriate Flu Vaccine 17:01:15 PUBLIC AID ELIGIBILITY ASSISTANT 2 CPT-04159 Fluzone High Dose (65+) 15:03:08 PUBLIC AID ELIGIBILITY ASSISTANT 02/15 CPT-46430 Immunization Single Admin 15:03:08 PUBLIC AID ELIGIBILITY ASSISTANT 2014 CPT-OV Office Visit 15:58:06 CDT CPT-J0897 Prolia 60 mg 08:45:38 CDT CPT-19195 Abx/Therapy Injection 08:45:38 CDT CPT-J3420 Vitamin B12 1000mcg (Cyanocobalamin) 09:26:20 PUBLIC AID ELIGIBILITY ASSISTANT CPT-08511 Abx/Therapy Injection 09:26:20 PUBLIC AID ELIGIBILITY ASSISTANT CPT-J3420 Vitamin B12 1000mcg (Cyanocobalamin) 09:44:40 PUBLIC AID ELIGIBILITY ASSISTANT CPT-40966 Abx/Therapy Injection 09:44:40 PUBLIC AID ELIGIBILITY ASSISTANT CPT-J3420 Vitamin B12 1000mcg (Cyanocobalamin) 09:15:54 PUBLIC AID ELIGIBILITY ASSISTANT CPT-12775 Abx/Therapy Injection 09:15:54 PUBLIC AID ELIGIBILITY ASSISTANT CPT-J3420 Vitamin B12 1000mcg (Cyanocobalamin) 09:46:44 PUBLIC AID ELIGIBILITY ASSISTANT CPT-53514 Abx/Therapy Injection 09:46:44 PUBLIC AID ELIGIBILITY ASSISTANT CPT-J3420 Vitamin B12 1000mcg (Cyanocobalamin) 09:47:34 PUBLIC AID ELIGIBILITY ASSISTANT CPT-10373 Abx/Therapy Injection 09:47:34 PUBLIC AID ELIGIBILITY ASSISTANT CPT-J3420 Vitamin B12 1000mcg (Cyanocobalamin) 14:35:50 PUBLIC AID ELIGIBILITY ASSISTANT CPT-J3420 Vitamin B12 1000mcg (Cyanocobalamin) 09:25:05 PUBLIC AID ELIGIBILITY ASSISTANT CPT-60485 Abx/Therapy Injection 09:25:05 PUBLIC AID ELIGIBILITY ASSISTANT CPT-G0008 Administration of Influenza Virus Vaccine 13:36:47 CDT CPT-48135 Fluzone High-Dose Intramuscular Suspension 11/15 13:36:47 CDT CPT-J0897 Prolia 60 mg 08:50:41 CDT CPT-12198 Abx/Therapy Injection 08:50:41 CDT CPT-14194 Bone Density 12:06:12 CDT CPT-71699 Bone Density 08:54:40 CDT CPT-OV Office Visit 15:37:02 CDT CPT-73273 Postop F/U Visit 15:47:49 CDT CPT-78268 Postop F/U Visit 15:21:02 CDT CPT-TCMH Transitional Care Mgmt-High 07:52:27 CDT 20 20/06/01 CPT-25360 Venipuncture Draw Fee 13:51:18 CDT CPT-01194 Venipuncture Draw Fee 10:14:55 PUBLIC AID ELIGIBILITY ASSISTANT CPT-07751 Venipuncture Draw Fee 13:39:45 PUBLIC AID ELIGIBILITY ASSISTANT CPT-OV Office Visit 15:11:22 PUBLIC AID ELIGIBILITY ASSISTANT CPT-26647 Venipuncture Draw Fee 09:20:49 PUBLIC AID ELIGIBILITY ASSISTANT CPT-51719 Venipuncture Draw Fee 16:52:15 PUBLIC AID ELIGIBILITY ASSISTANT CPT-35245 Venipuncture Draw Fee 10:37:24 PUBLIC AID ELIGIBILITY ASSISTANT CPT-74222 Venipuncture Draw Fee 08:21:21 PUBLIC AID ELIGIBILITY ASSISTANT CPT-45085 Venipuncture Draw Fee 08:30:20 PUBLIC AID ELIGIBILITY ASSISTANT CPT-21555 Venipuncture Draw Fee 14:53:21 PUBLIC AID ELIGIBILITY ASSISTANT CPT-72839 Venipuncture Draw Fee 09:40:56 PUBLIC AID ELIGIBILITY ASSISTANT CPT-00149 Venipuncture Draw Fee 10:30:47 PUBLIC AID ELIGIBILITY ASSISTANT CPT-12504 Venipuncture Draw Fee 10:46:17 PUBLIC AID ELIGIBILITY ASSISTANT CPT-25829 Venipuncture Draw Fee 11:12:45 PUBLIC AID ELIGIBILITY ASSISTANT CPT-85229 Venipuncture Draw Fee 09:53:33 PUBLIC AID ELIGIBILITY ASSISTANT CPT-71742 Venipuncture Draw Fee 11:53:51 PUBLIC AID ELIGIBILITY ASSISTANT CPT-92754 Venipuncture Draw Fee 10:33:50 PUBLIC AID ELIGIBILITY ASSISTANT CPT-99303 Venipuncture Draw Fee 10:05:01 PUBLIC AID ELIGIBILITY ASSISTANT CPT-48139 Venipuncture Draw Fee 14:32:52 PUBLIC AID ELIGIBILITY ASSISTANT CPT-13280 Venipuncture Draw Fee 09:46:13 PUBLIC AID ELIGIBILITY ASSISTANT CPT-18920 Venipuncture Draw Fee 11:34:27 PUBLIC AID ELIGIBILITY ASSISTANT CPT-43745 Venipuncture Draw Fee 13:17:16 PUBLIC AID ELIGIBILITY ASSISTANT CPT-24677 Venipuncture Draw Fee 12:05:39 CDT CPT-55829 Venipuncture Draw Fee 12:49:12 CDT CPT-33114 Venipuncture Draw Fee 12:37:18 CDT CPT-87460 Venipuncture Draw Fee 10:57:11 CDT CPT-39836 Venipuncture Draw Fee 13:47:40 CDT CPT-28762 Venipuncture Draw Fee 10:02:17 CDT CPT-15366 TB Tubersol 17:32:32 CDT CPT-OV Office Visit 16:21:53 CDT CPT-OV Office Visit 15:49:22 CDT CPT-OV Office Visit 17:16:31 CDT CPT-OV Office Visit 10:43:31 CDT
--- OUTSIDE RECORDS SUMMARY | 2019-02-09 12:05 | XMS REPORT | Clinical Summary ---
Author Author Admin, Florecita Munoz Organization [facility] [employer] Address Unknown Phone Unavailable Allergies, Adverse Reactions, [...] Sebaceous cyst, scalp 706.2 Resolved Kylie Yokum OPTICAL DESIGNER Sebaceous cyst Cervical lymphadenopathy, anterior, left 785.6 Resolv ed Kylie Yokum OPTICAL DESIGNER Enlargement of lymph nodes Need for prophylactic vaccination and inoculation against in fluenza V04.81 Resolved Adam Yates MD Need for prophylactic vaccination and inoculation against influenza Preventive health care V70.0 Resolved Kylie Yoku m OPTICAL DESIGNER Routine general medical examination at a health care facility Thyroid nodule, left 241.0 Active Kylie Yokum A PRN Nontoxic uninodular goiter Screening mammogram V76.12 Resolved Kylie Yokum A PRN Other screening mammogram Mandy 706.2 Resolved Kylie Yokum OPTICAL DESIGNER Sebaceous cyst Colon cancer, ascending 153.6 Resolved Kylie Yok um OPTICAL DESIGNER Malignant neoplasm of ascending colon Foot pain, left 729.5 Resolved Kylie Yokum OPTICAL DESIGNER Pain in limb Splinter 919.6 Resolved Kylie Yokum OPTICAL DESIGNER Superficial foreign body (splinter) of other, multiple, and unspecified sites, without major open wound and without mention of infection Rash 782.1 Resolved Kylie Yokum OPTICAL DESIGNER Rash and other nonspecific skin eruption Cyst 706.2 Resolved Kylie Yokum OPTICAL DESIGNER Sebaceous cyst Body Mass Index 23.0-23.9 Adult Active Kylie Yokum OPTICAL DESIGNER Body Mass Index between 19-24, adult Unspecified fall, initial encounter E888.9 Inactive Kylie Holt OPTICAL DESIGNER Unspecified fall Eye pain, left 379.91 Inactive Kylie Holt OPTICAL DESIGNER Pain in or around eye Pharyngitis, acute 074.0 Active Kylie Holt APR N Herpangina Chronic kidney disease stage 2 585.2 Active Rosemarie Gresham RN Chronic kidney disease, Stage II (mild) Hypomagnesemia 275.2 Active Rosemarie Gresham RN Disorders of magnesium metabolism Hypokalemia 276.8 Active Rosemarie Gresham RN Hypopotassemia ABDOMINAL PAIN, RIGHT LOWER QUADRANT ICD-789.03 Inactive Kina Joshua OPTICAL DESIGNER ADENOCARCINOMA, COLON, 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 Dick Yates MD ABDOMINAL PAIN, GENERALIZED ICD-789.07 Inactive Hope Benavidez MD PhD FEVER UNSPECIFIED ICD-780.60 Inactive Hope cohn MD PhD UNSPECIFIED VENOUS INSUFFICIENCY ICD-459.81 Annona ctive Adam Yates MD ADENOCARCINOMA, 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 Inac tive Hope Benavidez MD PhD Hyperkalemia ICD-276.7 Inactive Hope Benavidez MD PhD GERD ICD-530.81 Inactive Kylie Holt OPTICAL DESIGNER 2015 Health maintenance exam ICD-V70.0 Bam Yates MD Anemia ICD-285.9 Inactive Kylie Holt OPTICAL DESIGNER 07/24 Hypomagnesemia ICD-275.2 Inactive Kylie Yokum OPTICAL DESIGNER Weakness ICD-780.79 Inactive Hope Benavidez MD P [...] cyst, scalp ICD-706.2 Inactive Tracy hi Yokum OPTICAL DESIGNER Cervical lymphadenopathy, anterior, left ICD-785.6 Inactive Kylie Yokum OPTICAL DESIGNER Need for prophylactic vaccination and inoculation against in fluenza ICD-V04.81 Inactive Adam Yates MD Preventive health care ICD-V70.0 Inactive Ka thi Yokum OPTICAL DESIGNER Screening mammogram ICD-V76.12 Inactive Kylie Yokum OPTICAL DESIGNER Mandy ICD-706.2 Inactive Kylie Yokum OPTICAL DESIGNER 07/20 Colon cancer, ascending ICD-153.6 Inactive K athi Yokum OPTICAL DESIGNER Foot pain, left ICD-729.5 Inactive Kylie Holt OPTICAL DESIGNER Splinter ICD-919.6 Inactive Kylie Holt OPTICAL DESIGNER 2017 Rash ICD-782.1 Inactive Kylie Holt OPTICAL DESIGNER 07/25 Cyst ICD-706.2 Inactive Kylie Holt OPTICAL DESIGNER 08/11 Unspecified fall, initial encounter ICD-E888.9 Inactive Kylie Holt OPTICAL DESIGNER Eye pain, left ICD-379.91 Inactive Kylie Holt OPTICAL DESIGNER Medication List Medication Instructions Start Date Stop Date Generic Name NDC Status Provider Patient Instruction VOLTAREN 1 % TRANSDERMAL GEL apply 2 grams q 6-8 hour to left arm as needed for pain DICLOFENAC SODIUM 65640933154 Active Citlaly Watkins [facility] Active IMODIUM A-D 2 MG ORAL TABLET 1 tablet twice a day LOPERAMIDE HCL 75063283004 Active Kylie Holt AMY Active COQ10 100 MG ORAL CAPSULE 1 daily COENZYME Q10 037419 43082 Active LETY [place] Active VITAMIN D3 2000 UNIT ORAL CAPSULE Melaleuca-One daily CHOLECALCIFEROL 94929723018 Active Kylie Holt AMY Active PROBIOTIC DAILY ORAL CAPSULE Take one daily PROBIO TIC PRODUCT 63720954197 Active Kylie Holt APRN Active IRON 325 (65 Fe) MG ORAL TABLET 1 every other day FERROUS SULFATE 74107010602 No Longer Active Kylie Holt AMY Active FLORANEX ORAL PACKET 1 pack three times daily, for bowel health LACTOBACILLUS 72613901796 No Longer Active Kylie Holt APRN Active LOMOTIL 2.5-0.025 MG ORAL TABLET 1 tab by mouth prn 20 23/10/23 DIPHENOXYLATE-ATROPINE 41355039720 No Longer Active Kylie Yokum OPTICAL DESIGNER Active MAGNESIUM GLUCONATE 250 MG ORAL TABLET 1 tab tid 23/10/23 MAGNESIUM GLUCONATE 22144301699 No Longer Active Kylie Lundum OPTICAL DESIGNER Active CYANOCOBALAMIN 1000 MCG/ML INJECTION SOLUTION 1 injection ev ruben 2 weeks CYANOCOBALAMIN 56109350408 No Longer Active Kylie Lund um OPTICAL DESIGNER Active ATENOLOL 25 MG ORAL TABLET 1/2 pill by mouth daily, fo r headaches, blood pressure ATENOLOL 30854467461 Active Kylie Lundum OPTICAL DESIGNER Active PROPRANOLOL HCL 80 MG ORAL TABLET 1 tab tue. and thur. PROPRANOLOL HCL 58331008966 No Longer Active Hope Benavidez MD PhD A ctive VITAMIN D3 4000 IU 1 tab 3 times daily VITAMIN D3 4000 IU No Longer Active Hope Benavidez MD PhD Active BACTRIM DS 800-160 MG ORAL TABLET 1 pill by mouth twice claudio y, for UTI SULFAMETHOXAZOLE-TRIMETHOPRIM 37713671292 No Longer Active Hope Benavidez MD PhD Active PROLIA 60 MG/ML SUBCUTANEOUS SOLUTION 1 shot every 6 months for osteoprosis DENOSUMAB 86065676245 Active Hope Benavidez MD PhD Active CALCIUM + D + K 750-500-40 MG-UNT-MCG ORAL TABLET 1 tab by m outh twice daily CALCIUM-VITAMIN D-VITAMIN K 29756347372 Active Hope valdez MD PhD Active DAILY VALUE MULTIVITAMIN ORAL TABLET 1 tab by mouth twice daily 201 05/16/14 MULTIPLE VITAMIN 77325417222 Active Hope Benavidez MD PhD Acti ve FISH OIL 306 MG CAPS 1 tab by mouth three times daily OMEGA-3 FATTY ACIDS 04153991136 Active Hope Benavidez MD PhD Active LUTEIN 10 MG ORAL TABLET 1 tab daily LUTEIN 92328532 408 Active Hope Benavidez MD PhD Active TRIAMTERENE-HCTZ 37.5-25 MG ORAL TABLET 1 tab by mouth daily 10/22 TRIAMTERENE-HCTZ 49331089865 Active Deya Calderon, RMA Activ e CYCLOBENZAPRINE HCL 10 MG ORAL TABLET 1 tablet by mout three times daily as needed for headaches CYCLOBENZAPRINE HCL 81525708803 No Longer Active Adam Yates MD Active OMEPRAZOLE 20 MG ORAL CAPSULE DELAYED RELEASE 1 tablet by mo [facility] daily for GERD OMEPRAZOLE 13808941946 No Longer Active Adam Yates MD Active ZOFRAN 8 MG ORAL TABLET 1 tab by mouth every 12 hours prn 4 ONDANSETRON HCL 03611498426 No Longer Active Adam Yates MD Active PHENADOZ 25 MG RECTAL SUPPOSITORY 1 every 4 hrs. PRN 2 PROMETHAZINE HCL 73420686091 No Longer Active Adam Yates MD A ctive POTASSIUM CHLORIDE 20 MEQ ORAL PACKET by mouth twice a day prn 2 POTASSIUM CHLORIDE 84472858970 No Longer Active Adam Carpenter MD Active PROMETHAZINE HCL 25 MG ORAL TABLET 1 Q. 4 hr. PRN PROMETHAZINE HCL 18141905916 No Longer Active Adam Yates MD Active INNOPRAN XL 120 MG ORAL CAPSULE EXTENDED RELEASE 24 HO UR Take one by mouth daily PROPRANOLOL HCL SR BEADS 09641880092 No Longer Active Adam Yates MD Active FLAGYL 500 MG ORAL TABLET 1 pill by mouth three times daily, for diarrhea METRONIDAZOLE 22155057920 No Longer Active Hope landers MD PhD Active DYAZIDE 37.5-25 MG ORAL CAPSULE 1 qd TRIA MTERENE-HCTZ 54377598144 No Longer Active Hope Benavidez MD PhD Active PROZAC 20 MG ORAL CAPSULE 1 q d FLUOXETINE HCL 15801182201 No Longer Active Hope Benavidez MD PhD Active SIMVASTATIN 40 MG ORAL TABLET 1 qd SIMVAS TATIN 43068026130 No Longer Active Adam Yates MD Active MELOXICAM 15 MG ORAL TABLET 1 qd MELOXICAM 46312253699 No Longer Active Adam Yates MD Active EXCEDRIN EXTRA STRENGTH 250-250-65 MG ORAL TABLET 1-2 q6h MO N headache NOUDCIN-FRJJOFFTDUMAA-FPVLXSWY 42031301646 Active Hope Benavidez MD PhD Active FLAGYL 500 MG ORAL TABLET 1 qid METRONIDAZOL E 31294674228 No Longer Active Adam Yates MD Active LEVAQUIN 750 MG ORAL TABLET 1 qd LEVOFLOXAC IN 20853054343 No Longer Active Adam Yates MD Active ADULT ASPIRIN LOW STRENGTH 81 MG ORAL TABLET DISINTEGRATING 1 qd ASPIRIN 69215175888 Active Hope Benavidez MD PhD Active LEVAQUIN 750 MG ORAL TABLET 1 qd LEVAQUIN 750 MG ORAL TABLET 795559 LEVOFLOXACIN Inactive FLAGYL 500 MG ORAL TABLET 1 qid FLAGYL 500 MG ORAL TABLET 685745 METRONIDAZOLE Inactive MELOXICAM 15 MG ORAL TABLET 1 qd MELOXICAM 15 MG ORAL TABLET 245902 MELOXICAM Inactive SIMVASTATIN 40 MG ORAL TABLET 1 qd SIMVASTATIN 40 MG ORAL TABLET 922064 SIMVASTATIN Inactive PROZAC 20 MG ORAL CAPSULE 1 q d PROZAC 20 MG ORAL CAPSULE 353470 FLUOXETINE HCL Inactive DYAZIDE 37.5-25 MG ORAL CAPSULE 1 qd 5 DYAZIDE 37.5-25 MG ORAL CAPSULE 369313 TRIAMTERENE-HCTZ Inactive INNOPRAN XL 120 MG ORAL CAPSULE EXTENDED RELEASE 24 HO UR Take one by mouth daily INNOPRAN XL 120 MG ORAL CAPSULE EXTENDED RELEASE 24 HOUR PROPRANOLOL HCL SR BEADS Inactive PROMETHAZINE HCL 25 MG ORAL TABLET 1 Q. 4 hr. PRN 2013 PROMETHAZINE HCL 25 MG ORAL TABLET 791538 PROMETHAZINE HCL Inactive POTASSIUM CHLORIDE 20 MEQ ORAL PACKET by mouth twice a day prn 2 POTASSIUM CHLORIDE 20 MEQ ORAL PACKET 5349902 POTASSIUM CHLORIDE Inactive PHENADOZ 25 MG RECTAL SUPPOSITORY 1 every 4 hrs. PRN 2 PHENADOZ 25 MG RECTAL SUPPOSITORY 616298 PROMETHAZINE HCL Inactive ZOFRAN 8 MG ORAL TABLET 1 tab by mouth every 12 hours prn 4 ZOFRAN 8 MG ORAL TABLET 570790 ONDANSETRON HCL Inactive OMEPRAZOLE 20 MG ORAL CAPSULE DELAYED RELEASE 1 tablet by mo uth daily for GERD OMEPRAZOLE 20 MG ORAL CAPSULE DELAYED RELEASE 19 8051 OMEPRAZOLE Inactive CYCLOBENZAPRINE HCL 10 MG ORAL TABLET 1 tablet by mout h three times daily as needed for headaches CYCLOBENZAPRINE HCL 10 MG ORAL TABLET 467843 CYCLOBENZAPRINE HCL Inactive VITAMIN D3 4000 IU 1 tab 3 times daily VITAMIN D3 4000 IU Inactive PROPRANOLOL HCL 80 MG ORAL TABLET 1 tab tue. and thur. PROPRANOLOL HCL 80 MG ORAL TABLET 175597 PROPRANOLOL HCL Inacti ve CYANOCOBALAMIN 1000 MCG/ML INJECTION SOLUTION 1 injection ev ruben 2 weeks CYANOCOBALAMIN 1000 MCG/ML INJECTION SOLUTION 30 9594 CYANOCOBALAMIN Inactive MAGNESIUM GLUCONATE 250 MG ORAL TABLET 1 tab tid 20 23/10/23 MAGNESIUM GLUCONATE 250 MG ORAL TABLET 476305 MAGNESIUM GLUCONATE Inactive LOMOTIL 2.5-0.025 MG ORAL TABLET 1 tab by mouth prn 20 23/10/23 LOMOTIL 2.5-0.025 MG ORAL TABLET 7346666 DIPHENOXYLATE-ATROPINE Inac tive FLORANEX ORAL PACKET 1 pack three times daily, for bowel health FLORANEX ORAL PACKET 28757621244 LACTOBACILLUS Inactive IRON 325 (65 Fe) MG ORAL TABLET 1 every other day 2015 IRON 325 (65 Fe) MG ORAL TABLET 893365 FERROUS SULFATE Inactive FLAGYL 500 MG ORAL TABLET 1 pill by mouth three times daily, for diarrhea FLAGYL 500 MG ORAL TABLET 559183 METRONIDAZOLE I nactive BACTRIM DS 800-160 MG ORAL TABLET 1 pill by mouth twice claudio y, for UTI BACTRIM DS 800-160 MG ORAL TABLET 866247 SULFAMETHOXAZOLE-TRIMETHOPRIM Inactive Advance Directives Directive Description Start [...] ... - Chemistry sodium, serum 141 mmol/L 106-089 3336/01/10 potassium, serum 3.7 mmol/L 3.5-5.2 chloride, serum 101 mmol/L 98-107 carbon dioxide, venous blood 31.0 mmol/L 21.0-32 .0 blood glucose 96 mg/dL 65-95 calcium, serum 9.5 mg/dL 8.5-10.1 urea nitrogen, blood 21 mg/dL 7-18 creatinine, serum 1.40 mg/dL 0.60-1.30 Estimated Glomerular Filtration Rate (calc) 39 (?) mL/min/1.73m2 = OR > 60 mL/min cholesterol, serum 211 mg/dL 259-457 4703/01/10 triglyceride, serum, fasting 77 mg/dL 30-200 HDL [...] - Chem istry sodium, serum 142 mmol/L 470-404 7219/04/19 carbon dioxide, venous blood 30.2 mmol/L 21.0-32 [...] - Chelle radha sodium, serum 142 mmol/L 404-706 5629/11/02 potassium, serum 3.4 mmol/L 3.5-5.2 chloride, serum [...] mg/dL Encounters Code Encounter Date Provider Facility CPT-75428 [id number] Vst-Est Level III 14:29:19 CDT Fiorella Holt [facility] [place]note 3] [place] CPT-46123 Level 2 Est. Patient 14:58:26 CDT Kylie Lund [facility] [place] CPT-08200 Level 3 Est. Patient 08:15:24 PLACEMENT COORDINATOR Kylie Lund [facility] [place] CPT-04094 Level 2 Est. Patient 14:27:16 PLACEMENT COORDINATOR Kylie Lund [facility] [place] CPT-03122 Level 3 Est. Patient 17:54:48 CDT Kylie Lund [facility] [place] CPT-70412 Level 3 Est. Patient 16:26:30 CDT Kina blackmon [facility] [place][note 3] CPT-37077 Level 3 New Patient 16:22:01 PLACEMENT COORDINATOR Adam Yates MD [facility] CPT-00314 Level 4 Est. Patient 17:00:48 CDT Kylie Lund [facility] [place] CPT-18455 Level 3 Est. Patient 13:15:54 CDT Kylie Lund [facility] CPT-71328 Level 3 Est. Patient 09:10:11 CDT Kylie Lund [facility] CPT-67455 Level 4 Est. Patient 12:08:30 PLACEMENT COORDINATOR Hope cohn MD [facility] CPT-09317 Level 4 Est. Patient 19:08:42 PLACEMENT COORDINATOR Hope cohn MD PhD [facility] CPT-29077 Level 4 Est. Patient 20:04:51 CDT Hope cohn MD PhD [facility] CPT-62550 Level 3 New Patient 01:46:11 PLACEMENT COORDINATOR Hope landers MD PhD [facility] Procedures Code Procedure Name Date Entry Date Standard Desc ription CPT-81652 First Vx - Ix admin for Medicare patients 02/08 10:02:45 CDT CPT-30317 Fluzone Quadrivalent Intramuscular Suspe nsion 0.5 ML 10:02:45 CDT CPT-92342 Magnesium - LAB USE ONLY 09:41:00 CDT 12/09 CPT-33513 Renal Panel - LAB USE ONLY 09:41:00 CDT 201 09/17/01 CPT-23420 Venipuncture Draw Fee 09:41:00 CDT CPT-49071 Calcium - LAB USE ONLY 17:25:11 CDT CPT-J0897 Prolia 60 mg 15:10:59 CDT CPT-68324 Abx/Therapy Injection 15:10:59 CDT CPT-G0439 Subsequent Annual Wellness Exam 14:29:19 CDT CPT-44293 Venipuncture Draw Fee 10:59:04 CDT CPT-62520 CMP - LAB USE ONLY 10:59:04 CDT CPT-19871 CBC with Diff - LAB USE ONLY 10:59:03 CDT 2 CPT-J0897 Prolia 60 mg 15:46:54 PLACEMENT COORDINATOR CPT-17004 Abx/Therapy Injection 15:46:54 PLACEMENT COORDINATOR CPT-81469 Microalbumin - LAB USE ONLY 09:41:32 PLACEMENT COORDINATOR 20 23/01/15 CPT-38206 Free T4 - LAB USE ONLY 09:41:32 PLACEMENT COORDINATOR CPT-97301 TSH - LAB USE ONLY 09:41:32 PLACEMENT COORDINATOR CPT-26277 BMP - LAB USE ONLY 09:41:32 PLACEMENT COORDINATOR CPT-78936 Venipuncture Draw Fee 09:41:32 PLACEMENT COORDINATOR CPT-71349 First Vx - Ix admin for Medicare patients 11:19:30 CDT CPT-22179 Fluzone High-Dose Intramuscular Suspension 12/07 11:19:30 CDT CPT-J0897 Prolia 60 mg 14:55:42 CDT CPT-46640 Abx/Therapy Injection 14:55:42 CDT CPT-70232 Bone Density - XRAY USE ONLY 10:27:12 CDT 2 CPT-G0439 Subsequent Annual Wellness Exam 17:54:53 CDT CPT-70485 Foot, left, comp min 3V - XRAY USE ONLY 12:22:49 CDT CPT-G0009 Administration of Pneumococcal Vaccine 3 12:18:00 CDT CPT-99197 Pneumovax 23 Injection Injectable 25 MCG /0.5ML 12:18:00 CDT CPT-J0897 Prolia 60 mg 14:14:16 PLACEMENT COORDINATOR CPT-08002 Abx/Therapy Injection 14:14:15 PLACEMENT COORDINATOR CPT-29704 Lipid - LAB USE ONLY 10:01:52 PLACEMENT COORDINATOR 2 CPT-62130 Calcium - LAB USE ONLY 10:01:51 PLACEMENT COORDINATOR CPT-76262 Venipuncture Draw Fee 10:01:51 PLACEMENT COORDINATOR CPT-LR Lesion Removal 16:22:01 PLACEMENT COORDINATOR CPT-48441 TSH - LAB USE ONLY 14:26:02 CDT CPT-74633 CMP - LAB USE ONLY 14:26:01 CDT CPT-12825 CBC with Diff - LAB USE ONLY 14:26:01 CDT 2 CPT-89746 Venipuncture Draw Fee 14:26:01 CDT CPT-04892 First Vx - Ix admin for Medicare patients 13:27:08 CDT CPT-53998 Fluzone High-Dose Intramuscular Suspension 11/26 13:27:08 CDT CPT-G0438 Initial Annual Wellness Exam 14:19:57 CD T CPT-G0009 Administration of Pneumococcal Vaccine 9 11:36:25 CDT CPT-96022 Prevnar 13 Intramuscular Suspension 1 1:36:25 CDT CPT-42098 Prevnar 13 Intramuscular Suspension 1 0:40:58 CDT CPT-J0897 Prolia 60 mg 10:37:16 CDT CPT-15163 Abx/Therapy Injection 10:37:16 CDT CPT-J0897 Prolia 60 mg 16:09:34 PLACEMENT COORDINATOR CPT-J0897 Prolia 60 mg 11:10:35 PLACEMENT COORDINATOR CPT-91147 Abx/Therapy Injection 11:10:35 PLACEMENT COORDINATOR CPT-000 Give Appropriate Flu Vaccine 17:01:15 PLACEMENT COORDINATOR 2 CPT-85121 Fluzone High Dose (65+) 15:03:08 PLACEMENT COORDINATOR 02/15 CPT-84741 Immunization Single Admin 15:03:08 PLACEMENT COORDINATOR 2014 CPT-OV Office Visit 15:58:06 CDT CPT-J0897 Prolia 60 mg 08:45:38 CDT CPT-03301 Abx/Therapy Injection 08:45:38 CDT CPT-J3420 Vitamin B12 1000mcg (Cyanocobalamin) 09:26:20 PLACEMENT COORDINATOR CPT-41284 Abx/Therapy Injection 09:26:20 PLACEMENT COORDINATOR CPT-J3420 Vitamin B12 1000mcg (Cyanocobalamin) 09:44:40 PLACEMENT COORDINATOR CPT-49690 Abx/Therapy Injection 09:44:40 PLACEMENT COORDINATOR CPT-J3420 Vitamin B12 1000mcg (Cyanocobalamin) 09:15:54 PLACEMENT COORDINATOR CPT-23492 Abx/Therapy Injection 09:15:54 PLACEMENT COORDINATOR CPT-J3420 Vitamin B12 1000mcg (Cyanocobalamin) 09:46:44 PLACEMENT COORDINATOR CPT-24509 Abx/Therapy Injection 09:46:44 PLACEMENT COORDINATOR CPT-J3420 Vitamin B12 1000mcg (Cyanocobalamin) 09:47:34 PLACEMENT COORDINATOR CPT-48963 Abx/Therapy Injection 09:47:34 PLACEMENT COORDINATOR CPT-J3420 Vitamin B12 1000mcg (Cyanocobalamin) 14:35:50 PLACEMENT COORDINATOR CPT-J3420 Vitamin B12 1000mcg (Cyanocobalamin) 09:25:05 PLACEMENT COORDINATOR CPT-86608 Abx/Therapy Injection 09:25:05 PLACEMENT COORDINATOR CPT-G0008 Administration of Influenza Virus Vaccine 13:36:47 CDT CPT-37017 Fluzone High-Dose Intramuscular Suspension 11/15 13:36:47 CDT CPT-J0897 Prolia 60 mg 08:50:41 CDT CPT-13901 Abx/Therapy Injection 08:50:41 CDT CPT-45296 Bone Density 12:06:12 CDT CPT-87617 Bone Density 08:54:40 CDT CPT-OV Office Visit 15:37:02 CDT CPT-32438 Postop F/U Visit 15:47:49 CDT CPT-13063 Postop F/U Visit 15:21:02 CDT CPT-TCM Transitional Care Mgmt-High 07:52:27 CDT 20 20/06/01 CPT-53273 Venipuncture Draw Fee 13:51:18 CDT CPT-52106 Venipuncture Draw Fee 10:14:55 PLACEMENT COORDINATOR CPT-74132 Venipuncture Draw Fee 13:39:45 PLACEMENT COORDINATOR CPT-OV Office Visit 15:11:22 PLACEMENT COORDINATOR CPT-07633 Venipuncture Draw Fee 09:20:49 PLACEMENT COORDINATOR CPT-62028 Venipuncture Draw Fee 16:52:15 PLACEMENT COORDINATOR CPT-06759 Venipuncture Draw Fee 10:37:24 PLACEMENT COORDINATOR CPT-93839 Venipuncture Draw Fee 08:21:21 PLACEMENT COORDINATOR CPT-11457 Venipuncture Draw Fee 08:30:20 PLACEMENT COORDINATOR CPT-42414 Venipuncture Draw Fee 14:53:21 PLACEMENT COORDINATOR CPT-80478 Venipuncture Draw Fee 09:40:56 PLACEMENT COORDINATOR CPT-64666 Venipuncture Draw Fee 10:30:47 PLACEMENT COORDINATOR CPT-46849 Venipuncture Draw Fee 10:46:17 PLACEMENT COORDINATOR CPT-56303 Venipuncture Draw Fee 11:12:45 PLACEMENT COORDINATOR CPT-02415 Venipuncture Draw Fee 09:53:33 PLACEMENT COORDINATOR CPT-34004 Venipuncture Draw Fee 11:53:51 PLACEMENT COORDINATOR CPT-54511 Venipuncture Draw Fee 10:33:50 PLACEMENT COORDINATOR CPT-39857 Venipuncture Draw Fee 10:05:01 PLACEMENT COORDINATOR CPT-83430 Venipuncture Draw Fee 14:32:52 PLACEMENT COORDINATOR CPT-34116 Venipuncture Draw Fee 09:46:13 PLACEMENT COORDINATOR CPT-13047 Venipuncture Draw Fee 11:34:27 PLACEMENT COORDINATOR CPT-24106 Venipuncture Draw Fee 13:17:16 PLACEMENT COORDINATOR CPT-38765 Venipuncture Draw Fee 12:05:39 CDT CPT-43571 Venipuncture Draw Fee 12:49:12 CDT CPT-81364 Venipuncture Draw Fee 12:37:18 CDT CPT-56095 Venipuncture Draw Fee 10:57:11 CDT CPT-43358 Venipuncture Draw Fee 13:47:40 CDT CPT-21560 Venipuncture Draw Fee 10:02:17 CDT CPT-18792 TB Tubersol 17:32:32 CDT CPT-OV Office Visit 16:21:53 CDT CPT-OV Office Visit 15:49:22 CDT CPT-OV Office Visit 17:16:31 CDT CPT-OV Office Visit 10:43:31 CDT
--- OUTSIDE RECORDS SUMMARY | 2019-02-09 12:06 | XMS REPORT | Clinical Summary ---
Author Author Renaldo, Florecita Munoz Organization [facility] [place] Address Unknown Phone Unavailable Allergies, Adverse Reactions, [...] PhD Hyperpotassemia GERD 530.81 Resolved Kylie Yokum AGILE SCRUM COACH Esophageal reflux Health maintenance exam V70.0 Resolved Adolfo Yates MD Routine general medical examination at a health care facility Anemia 285.9 Resolved Kylie Yanet AGILE SCRUM COACH Anemia, unspecified Personal history of malignant neoplasm of large intestine V10.05 Active Adam Yates MD Personal history of malignant neoplasm of large intestine Hypomagnesemia 275.2 Resolved Kylie Yanet AGILE SCRUM COACH Disorders of magnesium metabolism Weakness 780.79 Resolved [...] Sebaceous cyst, scalp 706.2 Resolved Kylie Yokum AGILE SCRUM COACH Sebaceous cyst Cervical lymphadenopathy, anterior, left 785.6 Resolv ed Kylie Yokum AGILE SCRUM COACH Enlargement of lymph nodes Need for prophylactic vaccination and inoculation against in fluenza V04.81 Resolved Adam Yates MD Need for prophylactic vaccination and inoculation against influenza Preventive health care V70.0 Resolved Kylie Escalonaku m AGILE SCRUM COACH Routine general medical examination at a health care facility Thyroid nodule, left 241.0 Active Kylie Yokum A PRN Nontoxic uninodular goiter Screening mammogram V76.12 Resolved Kylie Yokum A PRN Other screening mammogram Mandy 706.2 Resolved Kylie Yokum AGILE SCRUM COACH Sebaceous cyst Colon cancer, ascending 153.6 Resolved Kylie Yok um AGILE SCRUM COACH Malignant neoplasm of ascending colon Foot pain, left 729.5 Resolved Kylie Yokum AGILE SCRUM COACH Pain in limb Splinter 919.6 Resolved Kylie Yokum AGILE SCRUM COACH Superficial foreign body (splinter) of other, multiple, and unspecified sites, without major open wound and without mention of infection Rash 782.1 Resolved Kylie Yokum AGILE SCRUM COACH Rash and other nonspecific skin eruption Cyst 706.2 Resolved Kylie Yokum AGILE SCRUM COACH Sebaceous cyst Body Mass Index 23.0-23.9 Adult Active Kylie Yokum AGILE SCRUM COACH Body Mass Index between 19-24, adult Unspecified fall, initial encounter E888.9 Inactive Kylie Holt AGILE SCRUM COACH Unspecified fall Eye pain, left 379.91 Inactive Kylie Holt AGILE SCRUM COACH Pain in or around eye Pharyngitis, acute 074.0 Active Kylie Holt APR N Herpangina Chronic kidney disease stage 2 585.2 Active Rosemarie Gresham RN Chronic kidney disease, Stage II (mild) Hypomagnesemia 275.2 Active Rosemarie Gresham RN Disorders of magnesium metabolism Hypokalemia 276.8 Active Rosemarie Gresham RN Hypopotassemia ABDOMINAL PAIN, RIGHT LOWER QUADRANT ICD-789.03 Inactive Kina Joshua AGILE SCRUM COACH ADENOCARCINOMA, COLON, 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 Dick Yates MD ABDOMINAL PAIN, GENERALIZED ICD-789.07 Inactive Hope Benavidez MD PhD FEVER UNSPECIFIED ICD-780.60 Inactive Hope cohn MD PhD UNSPECIFIED VENOUS INSUFFICIENCY ICD-459.81 Elda ctive Adam Yates MD ADENOCARCINOMA, 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 Inac tive Hope Benavidez MD PhD Hyperkalemia ICD-276.7 Inactive Hope Benavidez MD PhD GERD ICD-530.81 Inactive Kylie Holt AGILE SCRUM COACH 2015 Health maintenance exam ICD-V70.0 Bam Yates MD Anemia ICD-285.9 Inactive Kylie Holt AGILE SCRUM COACH 07/24 Hypomagnesemia ICD-275.2 Inactive Kylie Yokum AGILE SCRUM COACH Weakness ICD-780.79 Inactive Hope Benavidez MD P [...] cyst, scalp ICD-706.2 Inactive Tracy hi Yokum AGILE SCRUM COACH Cervical lymphadenopathy, anterior, left ICD-785.6 Inactive Kylie Yokum AGILE SCRUM COACH Need for prophylactic vaccination and inoculation against in fluenza ICD-V04.81 Inactive Adam Yates MD Preventive health care ICD-V70.0 Inactive Ka thi Yokum AGILE SCRUM COACH Screening mammogram ICD-V76.12 Inactive Kylie Yokum AGILE SCRUM COACH Mandy ICD-706.2 Inactive Kylie Yokum AGILE SCRUM COACH 07/20 Colon cancer, ascending ICD-153.6 Inactive K athi Yokum AGILE SCRUM COACH Foot pain, left ICD-729.5 Inactive Kylie Holt AGILE SCRUM COACH Splinter ICD-919.6 Inactive Kylie Holt AGILE SCRUM COACH 2017 Rash ICD-782.1 Inactive Kylie Holt AGILE SCRUM COACH 07/25 Cyst ICD-706.2 Inactive Kylie Holt AGILE SCRUM COACH 08/11 Unspecified fall, initial encounter ICD-E888.9 Inactive Kylie Holt AGILE SCRUM COACH Eye pain, left ICD-379.91 Inactive Kylie Holt APRN Medication List Medication Instructions Start Date Stop Date Generic Name NDC Status Provider Patient Instruction VOLTAREN 1 % TRANSDERMAL GEL apply 2 grams q 6-8 hour to left arm as needed for pain DICLOFENAC SODIUM 72319661545 Active Citlaly Roland Lisa Active IMODIUM A-D 2 MG ORAL TABLET 1 tablet twice a day LOPERAMIDE HCL 32094540261 Active Kylie Holt APRN Active COQ10 100 MG ORAL CAPSULE 1 daily COENZYME Q10 488733 09587 Active LETY Nation Active VITAMIN D3 2000 UNIT ORAL CAPSULE Melaleuca-One daily CHOLECALCIFEROL 05470664148 Active Kylie Holt APRN Active PROBIOTIC DAILY ORAL CAPSULE Take one daily PROBIO TIC PRODUCT 71867782406 Active Kylie Holt APRN Active IRON 325 (65 Fe) MG ORAL TABLET 1 every other day FERROUS SULFATE 03602674543 No Longer Active Kylie Holt APRN Active FLORANEX ORAL PACKET 1 pack three times daily, for bowel health LACTOBACILLUS 63613603223 No Longer Active Kylie Holt APRN Active LOMOTIL 2.5-0.025 MG ORAL TABLET 1 tab by mouth prn 20 23/10/23 DIPHENOXYLATE-ATROPINE 83591703352 No Longer Active Kylie Yokum AGILE SCRUM COACH Active MAGNESIUM GLUCONATE 250 MG ORAL TABLET 1 tab tid 23/10/23 MAGNESIUM GLUCONATE 04813318945 No Longer Active Kylie Lundum AGILE SCRUM COACH Active CYANOCOBALAMIN 1000 MCG/ML INJECTION SOLUTION 1 injection ev ruben 2 weeks CYANOCOBALAMIN 88001131712 No Longer Active Kylie Lund um AGILE SCRUM COACH Active ATENOLOL 25 MG ORAL TABLET 1/2 pill by mouth daily, fo r headaches, blood pressure ATENOLOL 82366407761 Active Kylie Yokum AGILE SCRUM COACH Active PROPRANOLOL HCL 80 MG ORAL TABLET 1 tab tue. and thur. PROPRANOLOL HCL 72454361666 No Longer Active Hope Benavidez MD PhD A ctive VITAMIN D3 4000 IU 1 tab 3 times daily VITAMIN D3 4000 IU No Longer Active Hope Benavidez MD PhD Active BACTRIM DS 800-160 MG ORAL TABLET 1 pill by mouth twice claudio y, for UTI SULFAMETHOXAZOLE-TRIMETHOPRIM 32882396750 No Longer Active Hope Benavidez MD PhD Active PROLIA 60 MG/ML SUBCUTANEOUS SOLUTION 1 shot every 6 months for osteoprosis DENOSUMAB 13540649752 Active Hope Benavidez MD PhD Active CALCIUM + D + K 750-500-40 MG-UNT-MCG ORAL TABLET 1 tab by m [facility] twice daily CALCIUM-VITAMIN D-VITAMIN K 80021572748 Active Hope valdez MD PhD Active DAILY VALUE MULTIVITAMIN ORAL TABLET 1 tab by mouth twice daily 201 05/16/14 MULTIPLE VITAMIN 23029884827 Active Hope Benavidez MD PhD Acti ve FISH OIL 306 MG CAPS 1 tab by mouth three times daily OMEGA-3 FATTY ACIDS 31532339029 Active Hope Benavidez MD PhD Active LUTEIN 10 MG ORAL TABLET 1 tab daily LUTEIN 69767529 408 Active Hope Benavidez MD PhD Active TRIAMTERENE-HCTZ 37.5-25 MG ORAL TABLET 1 tab by mouth daily 10/22 TRIAMTERENE-HCTZ 18302188949 Active LETY Rossi Activ e CYCLOBENZAPRINE HCL 10 MG ORAL TABLET 1 tablet by mout three times daily as needed for headaches CYCLOBENZAPRINE HCL 58026174597 No Longer Active Adam Yates MD Active OMEPRAZOLE 20 MG ORAL CAPSULE DELAYED RELEASE 1 tablet by mo [facility] daily for GERD OMEPRAZOLE 91443419217 No Longer Active Adam Yates MD Active ZOFRAN 8 MG ORAL TABLET 1 tab by mouth every 12 hours prn 4 ONDANSETRON HCL 33318424586 No Longer Active Adam Yates MD Active PHENADOZ 25 MG RECTAL SUPPOSITORY 1 every 4 hrs. PRN 2 PROMETHAZINE HCL 54039180624 No Longer Active Adam Yates MD A ctive POTASSIUM CHLORIDE 20 MEQ ORAL PACKET by mouth twice a day prn 2 POTASSIUM CHLORIDE 78076760979 No Longer Active Adam Carpenter MD Active PROMETHAZINE HCL 25 MG ORAL TABLET 1 Q. 4 hr. PRN PROMETHAZINE HCL 98866686099 No Longer Active Adam Yates MD Active INNOPRAN XL 120 MG ORAL CAPSULE EXTENDED RELEASE 24 HO UR Take one by mouth daily PROPRANOLOL HCL SR BEADS 08071682289 No Longer Active Adam Yates MD Active FLAGYL 500 MG ORAL TABLET 1 pill by mouth three times daily, for diarrhea METRONIDAZOLE 85932270137 No Longer Active Hope landers MD PhD Active DYAZIDE 37.5-25 MG ORAL CAPSULE 1 qd TRIA MTERENE-HCTZ 83776322146 No Longer Active Hope Benavidez MD PhD Active PROZAC 20 MG ORAL CAPSULE 1 q d FLUOXETINE HCL 69460289814 No Longer Active Hope Benavidez MD PhD Active SIMVASTATIN 40 MG ORAL TABLET 1 qd SIMVAS TATIN 19452123890 No Longer Active Adam Yates MD Active MELOXICAM 15 MG ORAL TABLET 1 qd MELOXICAM 88757490074 No Longer Active Adam Yates MD Active EXCEDRIN EXTRA STRENGTH 250-250-65 MG ORAL TABLET 1-2 q6h ND N headache CSNSQME-[id number]-DLXDSXAM 15736294758 Active Hope Benavidez MD PhD Active FLAGYL 500 MG ORAL TABLET 1 qid METRONIDAZOL E 80103833000 No Longer Active Adam Yates MD Active LEVAQUIN 750 MG ORAL TABLET 1 qd LEVOFLOXAC IN 62701627269 No Longer Active Adam Yates MD Active ADULT ASPIRIN LOW STRENGTH 81 MG ORAL TABLET DISINTEGRATING 1 qd ASPIRIN 08573635589 Active Hope Benavidez MD PhD Active LEVAQUIN 750 MG ORAL TABLET 1 qd LEVAQUIN 750 MG ORAL TABLET 526034 LEVOFLOXACIN Inactive FLAGYL 500 MG ORAL TABLET 1 qid FLAGYL 500 MG ORAL TABLET 847631 METRONIDAZOLE Inactive MELOXICAM 15 MG ORAL TABLET 1 qd MELOXICAM 15 MG ORAL TABLET 338353 MELOXICAM Inactive SIMVASTATIN 40 MG ORAL TABLET 1 qd SIMVASTATIN 40 MG ORAL TABLET 139813 SIMVASTATIN Inactive PROZAC 20 MG ORAL CAPSULE 1 q d PROZAC 20 MG ORAL CAPSULE 863374 FLUOXETINE HCL Inactive DYAZIDE 37.5-25 MG ORAL CAPSULE 1 qd 5 DYAZIDE 37.5-25 MG ORAL CAPSULE 638733 TRIAMTERENE-HCTZ Inactive INNOPRAN XL 120 MG ORAL CAPSULE EXTENDED RELEASE 24 HO UR Take one by mouth daily INNOPRAN XL 120 MG ORAL CAPSULE EXTENDED RELEASE 24 HOUR PROPRANOLOL HCL SR BEADS Inactive PROMETHAZINE HCL 25 MG ORAL TABLET 1 Q. 4 hr. PRN 2013 PROMETHAZINE HCL 25 MG ORAL TABLET 493193 PROMETHAZINE HCL Inactive POTASSIUM CHLORIDE 20 MEQ ORAL PACKET by mouth twice a day prn 2 POTASSIUM CHLORIDE 20 MEQ ORAL PACKET 4657998 POTASSIUM CHLORIDE Inactive PHENADOZ 25 MG RECTAL SUPPOSITORY 1 every 4 hrs. PRN 2 PHENADOZ 25 MG RECTAL SUPPOSITORY 868309 PROMETHAZINE HCL Inactive ZOFRAN 8 MG ORAL TABLET 1 tab by mouth every 12 hours prn 4 ZOFRAN 8 MG ORAL TABLET 853271 ONDANSETRON HCL Inactive OMEPRAZOLE 20 MG ORAL CAPSULE DELAYED RELEASE 1 tablet by mo uth daily for GERD OMEPRAZOLE 20 MG ORAL CAPSULE DELAYED RELEASE 19 8051 OMEPRAZOLE Inactive CYCLOBENZAPRINE HCL 10 MG ORAL TABLET 1 tablet by mout h three times daily as needed for headaches CYCLOBENZAPRINE HCL 10 MG ORAL TABLET 218771 CYCLOBENZAPRINE HCL Inactive VITAMIN D3 4000 IU 1 tab 3 times daily VITAMIN D3 4000 IU Inactive PROPRANOLOL HCL 80 MG ORAL TABLET 1 tab tue. and thur. PROPRANOLOL HCL 80 MG ORAL TABLET 172641 PROPRANOLOL HCL Inacti ve CYANOCOBALAMIN 1000 MCG/ML INJECTION SOLUTION 1 injection ev ruben 2 weeks CYANOCOBALAMIN 1000 MCG/ML INJECTION SOLUTION 30 9594 CYANOCOBALAMIN Inactive MAGNESIUM GLUCONATE 250 MG ORAL TABLET 1 tab tid 23/10/23 MAGNESIUM GLUCONATE 250 MG ORAL TABLET 321279 MAGNESIUM GLUCONATE Inactive LOMOTIL 2.5-0.025 MG ORAL TABLET 1 tab by mouth prn 23/10/23 LOMOTIL 2.5-0.025 MG ORAL TABLET 5585886 DIPHENOXYLATE-ATROPINE Inac tive FLORANEX ORAL PACKET 1 pack three times daily, for bowel health FLORANEX ORAL PACKET 57845573592 LACTOBACILLUS Inactive IRON 325 (65 Fe) MG ORAL TABLET 1 every other day 2015 IRON 325 (65 Fe) MG ORAL TABLET 018186 FERROUS SULFATE Inactive FLAGYL 500 MG ORAL TABLET 1 pill by mouth three times daily, for diarrhea FLAGYL 500 MG ORAL TABLET 525110 METRONIDAZOLE I nactive BACTRIM DS 800-160 MG ORAL TABLET 1 pill by mouth twice claudio y, for UTI BACTRIM DS 800-160 MG ORAL TABLET 874631 SULFAMETHOXAZOLE-TRIMETHOPRIM Inactive Advance Directives Directive Description Start [...] weight E&M 134.31 [lb_av] Weight Measure d blood pressure, diastolic 51 mm[Hg] BP dobson blood pressure, systolic 129 mm[Hg] BP sys height E&M 63 [in_us] Bdy height pulse rate E&M 63 /min Heart rate temperature E&M 98.0 [degF] Body temp erature weight E&M 133.31 [lb_av] Weight Measure d Diagnostic Results Date Name Value Unit Range Description Lab Report: Calcium - Chemistry calcium, serum 9.1 mg/dL 8.5-10.1 Lab Report: CEA - Serology carcinoembryonic antigen 0.6 ng/mL Lab Report: Comp. Metabolic Panel - Chem istry sodium, serum 142 mmol/L 721-898 7279/04/19 carbon dioxide, venous blood 30.2 mmol/L 21.0-32 [...] - Chelle radha sodium, serum 142 mmol/L 773-280 8413/11/02 potassium, serum 3.4 mmol/L 3.5-5.2 chloride, serum [...] mg/dL Encounters Code Encounter Date Provider Facility CPT-38618 [id number] Vst-Est Level III 14:29:19 CDT Fiorella Holt [facility] [place] CPT-85765 Level 2 Est. Patient 14:58:26 CDT Kylie boyd [facility] [place] CPT-01591 Level 3 Est. Patient 08:15:24 COMPUTER SYSTEMS TECHNICIAN Kylie boyd [facility] [place] CPT-04634 Level 2 Est. Patient 14:27:16 COMPUTER SYSTEMS TECHNICIAN Kylie boyd [facility] [place] CPT-84236 Level 3 Est. Patient 17:54:48 CDT Kylie Lund [facility] [place] CPT-51965 Level 3 Est. Patient 16:26:30 CDT Kina Terry blackmon [facility] CPT-83718 Level 3 New Patient 16:22:01 COMPUTER SYSTEMS TECHNICIAN Adam Yates MD [facility] CPT-32379 Level 4 Est. Patient 17:00:48 CDT Kylie Lund [facility] [place] CPT-48611 Level 3 Est. Patient 13:15:54 CDT Kylie Lund [facility] CPT-52060 Level 3 Est. Patient 09:10:11 CDT Kylie Lund [facility] CPT-87850 Level 4 Est. Patient 12:08:30 COMPUTER SYSTEMS TECHNICIAN Hope cohn MD [facility] CPT-00209 Level 4 Est. Patient 19:08:42 COMPUTER SYSTEMS TECHNICIAN Hope cohn MD [facility] CPT-07334 Level 4 Est. Patient 20:04:51 CDT Hope cohn MD [facility] CPT-73511 Level 3 New Patient 01:46:11 COMPUTER SYSTEMS TECHNICIAN Hope landers MD PhD [facility] Procedures Code Procedure Name Date Entry Date Standard Desc ription CPT-02814 First Vx - Ix admin for Medicare patients 02/08 10:02:45 CDT CPT-09391 Fluzone Quadrivalent Intramuscular Suspe nsion 0.5 ML 10:02:45 CDT CPT-27115 Magnesium - LAB USE ONLY 09:41:00 CDT 12/09 CPT-30552 Renal Panel - LAB USE ONLY 09:41:00 CDT 201 09/17/01 CPT-59181 Venipuncture Draw Fee 09:41:00 CDT CPT-88142 Calcium - LAB USE ONLY 17:25:11 CDT CPT-J0897 Prolia 60 mg 15:10:59 CDT CPT-98357 Abx/Therapy Injection 15:10:59 CDT CPT-G0439 Subsequent Annual Wellness Exam 14:29:19 CDT CPT-50131 Venipuncture Draw Fee 10:59:04 CDT CPT-03476 CMP - LAB USE ONLY 10:59:04 CDT CPT-72654 CBC with Diff - LAB USE ONLY 10:59:03 CDT 2 CPT-J0897 Prolia 60 mg 15:46:54 COMPUTER SYSTEMS TECHNICIAN CPT-14470 Abx/Therapy Injection 15:46:54 COMPUTER SYSTEMS TECHNICIAN CPT-94677 Microalbumin - LAB USE ONLY 09:41:32 COMPUTER SYSTEMS TECHNICIAN 20 23/01/15 CPT-49777 Free T4 - LAB USE ONLY 09:41:32 COMPUTER SYSTEMS TECHNICIAN CPT-15344 TSH - LAB USE ONLY 09:41:32 COMPUTER SYSTEMS TECHNICIAN CPT-11280 BMP - LAB USE ONLY 09:41:32 COMPUTER SYSTEMS TECHNICIAN CPT-93921 Venipuncture Draw Fee 09:41:32 COMPUTER SYSTEMS TECHNICIAN CPT-78831 First Vx - Ix admin for Medicare patients 11:19:30 CDT CPT-98849 Fluzone High-Dose Intramuscular Suspension 12/07 11:19:30 CDT CPT-J0897 Prolia 60 mg 14:55:42 CDT CPT-47006 Abx/Therapy Injection 14:55:42 CDT CPT-26294 Bone Density - XRAY USE ONLY 10:27:12 CDT 2 CPT-G0439 MC Subsequent Annual Wellness Exam 17:54:53 CDT CPT-00074 Foot, left, comp min 3V - XRAY USE ONLY 12:22:49 CDT CPT-G0009 Administration of Pneumococcal Vaccine 3 12:18:00 CDT CPT-58500 Pneumovax 23 Injection Injectable 25 MCG /0.5ML 12:18:00 CDT CPT-J0897 Prolia 60 mg 14:14:16 COMPUTER SYSTEMS TECHNICIAN CPT-07370 Abx/Therapy Injection 14:14:15 COMPUTER SYSTEMS TECHNICIAN CPT-99252 Lipid - LAB USE ONLY 10:01:52 COMPUTER SYSTEMS TECHNICIAN 2 CPT-98937 Calcium - LAB USE ONLY 10:01:51 COMPUTER SYSTEMS TECHNICIAN CPT-97882 Venipuncture Draw Fee 10:01:51 COMPUTER SYSTEMS TECHNICIAN CPT-LR Lesion Removal 16:22:01 COMPUTER SYSTEMS TECHNICIAN CPT-55302 TSH - LAB USE ONLY 14:26:02 CDT CPT-10677 CMP - LAB USE ONLY 14:26:01 CDT CPT-52436 CBC with Diff - LAB USE ONLY 14:26:01 CDT 2 CPT-33563 Venipuncture Draw Fee 14:26:01 CDT CPT-70479 First Vx - Ix admin for Medicare patients 13:27:08 CDT CPT-25812 Fluzone High-Dose Intramuscular Suspension 11/26 13:27:08 CDT CPT-G0438 Initial Annual Wellness Exam 14:19:57 CD T CPT-G0009 Administration of Pneumococcal Vaccine 9 11:36:25 CDT CPT-43947 Prevnar 13 Intramuscular Suspension 1 1:36:25 CDT CPT-58457 Prevnar 13 Intramuscular Suspension 1 0:40:58 CDT CPT-J0897 Prolia 60 mg 10:37:16 CDT CPT-06468 Abx/Therapy Injection 10:37:16 CDT CPT-J0897 Prolia 60 mg 16:09:34 COMPUTER SYSTEMS TECHNICIAN CPT-J0897 Prolia 60 mg 11:10:35 COMPUTER SYSTEMS TECHNICIAN CPT-11097 Abx/Therapy Injection 11:10:35 COMPUTER SYSTEMS TECHNICIAN CPT-000 Give Appropriate Flu Vaccine 17:01:15 COMPUTER SYSTEMS TECHNICIAN 2 CPT-43929 Fluzone High Dose (65+) 15:03:08 COMPUTER SYSTEMS TECHNICIAN 02/15 CPT-99708 Immunization Single Admin 15:03:08 COMPUTER SYSTEMS TECHNICIAN 2014 CPT-OV Office Visit 15:58:06 CDT CPT-J0897 Prolia 60 mg 08:45:38 CDT CPT-80222 Abx/Therapy Injection 08:45:38 CDT CPT-J3420 Vitamin B12 1000mcg (Cyanocobalamin) 09:26:20 COMPUTER SYSTEMS TECHNICIAN CPT-77192 Abx/Therapy Injection 09:26:20 COMPUTER SYSTEMS TECHNICIAN CPT-J3420 Vitamin B12 1000mcg (Cyanocobalamin) 09:44:40 COMPUTER SYSTEMS TECHNICIAN CPT-64463 Abx/Therapy Injection 09:44:40 COMPUTER SYSTEMS TECHNICIAN CPT-J3420 Vitamin B12 1000mcg (Cyanocobalamin) 09:15:54 COMPUTER SYSTEMS TECHNICIAN CPT-41206 Abx/Therapy Injection 09:15:54 COMPUTER SYSTEMS TECHNICIAN CPT-J3420 Vitamin B12 1000mcg (Cyanocobalamin) 09:46:44 COMPUTER SYSTEMS TECHNICIAN CPT-39034 Abx/Therapy Injection 09:46:44 COMPUTER SYSTEMS TECHNICIAN CPT-J3420 Vitamin B12 1000mcg (Cyanocobalamin) 09:47:34 COMPUTER SYSTEMS TECHNICIAN CPT-03782 Abx/Therapy Injection 09:47:34 COMPUTER SYSTEMS TECHNICIAN CPT-J3420 Vitamin B12 1000mcg (Cyanocobalamin) 14:35:50 COMPUTER SYSTEMS TECHNICIAN CPT-J3420 Vitamin B12 1000mcg (Cyanocobalamin) 09:25:05 COMPUTER SYSTEMS TECHNICIAN CPT-50277 Abx/Therapy Injection 09:25:05 COMPUTER SYSTEMS TECHNICIAN CPT-G0008 Administration of Influenza Virus Vaccine 13:36:47 CDT CPT-98645 Fluzone High-Dose Intramuscular Suspension 11/15 13:36:47 CDT CPT-J0897 Prolia 60 mg 08:50:41 CDT CPT-90457 Abx/Therapy Injection 08:50:41 CDT CPT-92580 Bone Density 12:06:12 CDT CPT-74942 Bone Density 08:54:40 CDT CPT-OV Office Visit 15:37:02 CDT CPT-79989 Postop F/U Visit 15:47:49 CDT CPT-06261 Postop F/U Visit 15:21:02 CDT CPT-TCMH Transitional Care Mgmt-High 07:52:27 CDT 20 20/06/01 CPT-41411 Venipuncture Draw Fee 13:51:18 CDT CPT-70410 Venipuncture Draw Fee 10:14:55 COMPUTER SYSTEMS TECHNICIAN CPT-19397 Venipuncture Draw Fee 13:39:45 COMPUTER SYSTEMS TECHNICIAN CPT-OV Office Visit 15:11:22 COMPUTER SYSTEMS TECHNICIAN CPT-88905 Venipuncture Draw Fee 09:20:49 COMPUTER SYSTEMS TECHNICIAN CPT-47583 Venipuncture Draw Fee 16:52:15 COMPUTER SYSTEMS TECHNICIAN CPT-23048 Venipuncture Draw Fee 10:37:24 COMPUTER SYSTEMS TECHNICIAN CPT-35455 Venipuncture Draw Fee 08:21:21 COMPUTER SYSTEMS TECHNICIAN CPT-47400 Venipuncture Draw Fee 08:30:20 COMPUTER SYSTEMS TECHNICIAN CPT-31521 Venipuncture Draw Fee 14:53:21 COMPUTER SYSTEMS TECHNICIAN CPT-81919 Venipuncture Draw Fee 09:40:56 COMPUTER SYSTEMS TECHNICIAN CPT-29375 Venipuncture Draw Fee 10:30:47 COMPUTER SYSTEMS TECHNICIAN CPT-55751 Venipuncture Draw Fee 10:46:17 COMPUTER SYSTEMS TECHNICIAN CPT-18476 Venipuncture Draw Fee 11:12:45 COMPUTER SYSTEMS TECHNICIAN CPT-04925 Venipuncture Draw Fee 09:53:33 COMPUTER SYSTEMS TECHNICIAN CPT-73956 Venipuncture Draw Fee 11:53:51 COMPUTER SYSTEMS TECHNICIAN CPT-78289 Venipuncture Draw Fee 10:33:50 COMPUTER SYSTEMS TECHNICIAN CPT-10713 Venipuncture Draw Fee 10:05:01 COMPUTER SYSTEMS TECHNICIAN CPT-78556 Venipuncture Draw Fee 14:32:52 COMPUTER SYSTEMS TECHNICIAN CPT-97619 Venipuncture Draw Fee 09:46:13 COMPUTER SYSTEMS TECHNICIAN CPT-80658 Venipuncture Draw Fee 11:34:27 COMPUTER SYSTEMS TECHNICIAN CPT-76311 Venipuncture Draw Fee 13:17:16 COMPUTER SYSTEMS TECHNICIAN CPT-32583 Venipuncture Draw Fee 12:05:39 CDT CPT-23559 Venipuncture Draw Fee 12:49:12 CDT CPT-33818 Venipuncture Draw Fee 12:37:18 CDT CPT-43244 Venipuncture Draw Fee 10:57:11 CDT CPT-94349 Venipuncture Draw Fee 13:47:40 CDT CPT-54748 Venipuncture Draw Fee 10:02:17 CDT CPT-17294 TB Tubersol 17:32:32 CDT CPT-OV Office Visit 16:21:53 CDT CPT-OV Office Visit 15:49:22 CDT CPT-OV Office Visit 17:16:31 CDT CPT-OV Office Visit 10:43:31 CDT
--- OUTSIDE RECORDS SUMMARY | 2019-02-09 12:06 | XMS REPORT | Clinical Summary ---
Author Author Renaldo, Florecita Munoz Organization [facility] Address Unknown Phone Unavailable Allergies, Adverse Reactions, [...] PhD Hyperpotassemia GERD 530.81 Resolved Kylie Yokum DATA SUPPORT ANALYST Esophageal reflux Health maintenance exam V70.0 Resolved Adolfo Yates MD Routine general medical examination at a health care facility Anemia 285.9 Resolved Kylie Holt DATA SUPPORT ANALYST Anemia, unspecified Personal history of malignant neoplasm of large intestine V10.05 Active Adam Yates MD Personal history of malignant neoplasm of large intestine Hypomagnesemia 275.2 Resolved Kylie Holt DATA SUPPORT ANALYST Disorders of magnesium metabolism Weakness 780.79 Resolved [...] Dysuria Vitamin D deficiency 268.9 Active Hope eBnavidez MD PhD Unspecified vitamin D deficiency Peripheral neuropathy 356.9 Active Hope Benavidez MD PhD Unspecified hereditary and idiopathic peripheral neuropathy Vitamin B12 deficiency 266.2 Active Citlaly Meff ord RMA Other B-complex deficiencies Adenocarcinoma, ascending colon 153.6 Resolved 2015 Adam Yates MD Malignant neoplasm of ascending colon Sebaceous cyst, scalp 706.2 Resolved Kylie Yokum DATA SUPPORT ANALYST Sebaceous cyst Cervical lymphadenopathy, anterior, left 785.6 Resolv ed Kylie Yokum DATA SUPPORT ANALYST Enlargement of lymph nodes Need for prophylactic vaccination and inoculation against in fluenza V04.81 Resolved Adam Yates MD Need for prophylactic vaccination and inoculation against influenza Preventive health care V70.0 Resolved Kylie Escalonaku m DATA SUPPORT ANALYST Routine general medical examination at a health care facility Thyroid nodule, left 241.0 Active Kylie Yokum A PRN Nontoxic uninodular goiter Screening mammogram V76.12 Resolved Kylie Yokum A PRN Other screening mammogram Mandy 706.2 Resolved Kylie Yokum DATA SUPPORT ANALYST Sebaceous cyst Colon cancer, ascending 153.6 Resolved Kylie Yok um DATA SUPPORT ANALYST Malignant neoplasm of ascending colon Foot pain, left 729.5 Resolved Kylie Yokum DATA SUPPORT ANALYST Pain in limb Splinter 919.6 Resolved Kylie Yokum DATA SUPPORT ANALYST Superficial foreign body (splinter) of other, multiple, and unspecified sites, without major open wound and without mention of infection Rash 782.1 Resolved Kylie Yokum DATA SUPPORT ANALYST Rash and other nonspecific skin eruption Cyst 706.2 Resolved Kylie Yokum DATA SUPPORT ANALYST Sebaceous cyst Body Mass Index 23.0-23.9 Adult Active Kylie Yokum DATA SUPPORT ANALYST Body Mass Index between 19-24, adult Unspecified fall, initial encounter E888.9 Inactive Kylie Holt DATA SUPPORT ANALYST Unspecified fall Eye pain, left 379.91 Inactive Kylie Holt AMY Pain in or around eye Pharyngitis, acute 074.0 Active Kylie Holt APR N Herpangina Chronic kidney disease stage 2 585.2 Active Rosemarie Gresham RN Chronic kidney disease, Stage II (mild) Hypomagnesemia 275.2 Active Rosemarie Gresham RN Disorders of magnesium metabolism Hypokalemia 276.8 Active Rosemarie Gresham RN Hypopotassemia ABDOMINAL PAIN, RIGHT LOWER QUADRANT ICD-789.03 Inactive Kina Joshua DATA SUPPORT ANALYST ADENOCARCINOMA, COLON, 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 Dick Yates MD ABDOMINAL PAIN, GENERALIZED ICD-789.07 Inactive Hope Benavidez MD PhD FEVER UNSPECIFIED ICD-780.60 Inactive Hope cohn MD PhD UNSPECIFIED VENOUS INSUFFICIENCY ICD-459.81 Elda ctive Adam Yates MD ADENOCARCINOMA, 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 Inac tive Hope Benavidez MD PhD Hyperkalemia ICD-276.7 Inactive Hope Benavidez MD PhD GERD ICD-530.81 Inactive Kylie Hlot DATA SUPPORT ANALYST 2015 Health maintenance exam ICD-V70.0 Bam Yates MD Anemia ICD-285.9 Inactive Kylie Holt DATA SUPPORT ANALYST 07/24 Hypomagnesemia ICD-275.2 Inactive Kylie Yokum DATA SUPPORT ANALYST Weakness ICD-780.79 Inactive Hope Benavidez MD P [...] cyst, scalp ICD-706.2 Inactive Tracy hi Yokum DATA SUPPORT ANALYST Cervical lymphadenopathy, anterior, left ICD-785.6 Inactive Kylie Yokum DATA SUPPORT ANALYST Need for prophylactic vaccination and inoculation against in fluenza ICD-V04.81 Inactive Adam Yates MD Preventive health care ICD-V70.0 Inactive Ka thi Yokum DATA SUPPORT ANALYST Screening mammogram ICD-V76.12 Inactive Kylie Yokum DATA SUPPORT ANALYST Mandy ICD-706.2 Inactive Kylie Yokum DATA SUPPORT ANALYST 07/20 Colon cancer, ascending ICD-153.6 Inactive K athi Yokum DATA SUPPORT ANALYST Foot pain, left ICD-729.5 Inactive Kylie Holt DATA SUPPORT ANALYST Splinter ICD-919.6 Inactive Kylie Holt DATA SUPPORT ANALYST 2017 Rash ICD-782.1 Inactive Kylie Holt DATA SUPPORT ANALYST 07/25 Cyst ICD-706.2 Inactive Kylie Holt DATA SUPPORT ANALYST 08/11 Unspecified fall, initial encounter ICD-E888.9 Inactive Kylie Holt DATA SUPPORT ANALYST Eye pain, left ICD-379.91 Inactive Kylie Holt DATA SUPPORT ANALYST Medication List Medication Instructions Start Date Stop Date Generic Name NDC Status Provider Patient Instruction VOLTAREN 1 % TRANSDERMAL GEL apply 2 grams q 6-8 hour to left arm as needed for pain DICLOFENAC SODIUM 97726373485 Active Citlaly DAVIDSON Active IMODIUM A-D 2 MG ORAL TABLET 1 tablet twice a day LOPERAMIDE HCL 71438164422 Active Kylie Holt APRN Active COQ10 100 MG ORAL CAPSULE 1 daily COENZYME Q10 871728 82603 Active LETY Nation Active VITAMIN D3 2000 UNIT ORAL CAPSULE Melaleuca-One daily CHOLECALCIFEROL 39550250208 Active Kylie Holt APRN Active PROBIOTIC DAILY ORAL CAPSULE Take one daily PROBIO TIC PRODUCT 79380870050 Active Kylie Holt APRN Active IRON 325 (65 Fe) MG ORAL TABLET 1 every other day FERROUS SULFATE 47215064413 No Longer Active Kylie Holt APRN Active FLORANEX ORAL PACKET 1 pack three times daily, for bowel health LACTOBACILLUS 66157714408 No Longer Active Kylie Holt APRN Active LOMOTIL 2.5-0.025 MG ORAL TABLET 1 tab by mouth prn 20 23/10/23 DIPHENOXYLATE-ATROPINE 60039269933 No Longer Active Kylie Yokum DATA SUPPORT ANALYST Active MAGNESIUM GLUCONATE 250 MG ORAL TABLET 1 tab tid 23/10/23 MAGNESIUM GLUCONATE 09801844678 No Longer Active Kylie Lundum DATA SUPPORT ANALYST Active CYANOCOBALAMIN 1000 MCG/ML INJECTION SOLUTION 1 injection ev ruben 2 weeks CYANOCOBALAMIN 24275470192 No Longer Active Kylie Lund um DATA SUPPORT ANALYST Active ATENOLOL 25 MG ORAL TABLET 1/2 pill by mouth daily, fo r headaches, blood pressure ATENOLOL 26664535742 Active Kylie Lundum DATA SUPPORT ANALYST Active PROPRANOLOL HCL 80 MG ORAL TABLET 1 tab tue. and thur. PROPRANOLOL HCL 10888160065 No Longer Active Hope Benavidez MD PhD A ctive VITAMIN D3 4000 IU 1 tab 3 times daily VITAMIN D3 4000 IU No Longer Active Hope Benavidez MD PhD Active BACTRIM DS 800-160 MG ORAL TABLET 1 pill by mouth twice claudio y, for UTI SULFAMETHOXAZOLE-TRIMETHOPRIM 42683620676 No Longer Active Hope Benavidez MD PhD Active PROLIA 60 MG/ML SUBCUTANEOUS SOLUTION 1 shot every 6 months for osteoprosis DENOSUMAB 84870491816 Active Hope Benavidez MD PhD Active CALCIUM + D + K 750-500-40 MG-UNT-MCG ORAL TABLET 1 tab by m [facility] twice daily CALCIUM-VITAMIN D-VITAMIN K 77021899619 Active Hope valdez MD PhD Active DAILY VALUE MULTIVITAMIN ORAL TABLET 1 tab by mouth twice daily 201 05/16/14 MULTIPLE VITAMIN 57115721051 Active Hope Benavidez MD PhD Acti ve FISH OIL 306 MG CAPS 1 tab by mouth three times daily OMEGA-3 FATTY ACIDS 46911044558 Active Hope Benavidez MD PhD Active LUTEIN 10 MG ORAL TABLET 1 tab daily LUTEIN 32683348 408 Active Hope Benavidez MD PhD Active TRIAMTERENE-HCTZ 37.5-25 MG ORAL TABLET 1 tab by mouth daily 10/22 TRIAMTERENE-HCTZ 48668064370 Active LETY Rossi Activ e CYCLOBENZAPRINE HCL 10 MG ORAL TABLET 1 tablet by mout three times daily as needed for headaches CYCLOBENZAPRINE HCL 59964040821 No Longer Active Adam Yates MD Active OMEPRAZOLE 20 MG ORAL CAPSULE DELAYED RELEASE 1 tablet by mo [facility] daily for GERD OMEPRAZOLE 58741590766 No Longer Active Adam Yates MD Active ZOFRAN 8 MG ORAL TABLET 1 tab by mouth every 12 hours prn 4 ONDANSETRON HCL 11670324798 No Longer Active Adam Yates MD Active PHENADOZ 25 MG RECTAL SUPPOSITORY 1 every 4 hrs. PRN 2 PROMETHAZINE HCL 26612909533 No Longer Active Adam Yates MD A ctive POTASSIUM CHLORIDE 20 MEQ ORAL PACKET by mouth twice a day prn 2 POTASSIUM CHLORIDE 69606575648 No Longer Active Adam Carpenter MD Active PROMETHAZINE HCL 25 MG ORAL TABLET 1 Q. 4 hr. PRN PROMETHAZINE HCL 61853108122 No Longer Active Adam Yates MD Active INNOPRAN XL 120 MG ORAL CAPSULE EXTENDED RELEASE 24 HO UR Take one by mouth daily PROPRANOLOL HCL SR BEADS 17286585905 No Longer Active Adam Yates MD Active FLAGYL 500 MG ORAL TABLET 1 pill by mouth three times daily, for diarrhea METRONIDAZOLE 14188205950 No Longer Active Hope landers MD PhD Active DYAZIDE 37.5-25 MG ORAL CAPSULE 1 qd TRIA MTERENE-HCTZ 60249732298 No Longer Active Hope Benavidez MD PhD Active PROZAC 20 MG ORAL CAPSULE 1 q d FLUOXETINE HCL 76890059913 No Longer Active Hope Benavidez MD PhD Active SIMVASTATIN 40 MG ORAL TABLET 1 qd SIMVAS TATIN 86493964017 No Longer Active Adam Yates MD Active MELOXICAM 15 MG ORAL TABLET 1 qd MELOXICAM 42928902552 No Longer Active Adam Yates MD Active EXCEDRIN EXTRA STRENGTH 250-250-65 MG ORAL TABLET 1-2 q6h IA N headache [id number] 80389962799 Active Hope Benavidez MD PhD Active FLAGYL 500 MG ORAL TABLET 1 qid METRONIDAZOL E 52161186894 No Longer Active Adam Yates MD Active LEVAQUIN 750 MG ORAL TABLET 1 qd LEVOFLOXAC IN 39336292369 No Longer Active Adam Yates MD Active ADULT ASPIRIN LOW STRENGTH 81 MG ORAL TABLET DISINTEGRATING 1 qd ASPIRIN 58694314543 Active Hope Benavidez MD PhD Active LEVAQUIN 750 MG ORAL TABLET 1 qd LEVAQUIN 750 MG ORAL TABLET 009018 LEVOFLOXACIN Inactive FLAGYL 500 MG ORAL TABLET 1 qid FLAGYL 500 MG ORAL TABLET 199260 METRONIDAZOLE Inactive MELOXICAM 15 MG ORAL TABLET 1 qd MELOXICAM 15 MG ORAL TABLET 021131 MELOXICAM Inactive SIMVASTATIN 40 MG ORAL TABLET 1 qd SIMVASTATIN 40 MG ORAL TABLET 474332 SIMVASTATIN Inactive PROZAC 20 MG ORAL CAPSULE 1 q d PROZAC 20 MG ORAL CAPSULE 669223 FLUOXETINE HCL Inactive DYAZIDE 37.5-25 MG ORAL CAPSULE 1 qd 5 DYAZIDE 37.5-25 MG ORAL CAPSULE 743842 TRIAMTERENE-HCTZ Inactive INNOPRAN XL 120 MG ORAL CAPSULE EXTENDED RELEASE 24 HO UR Take one by mouth daily INNOPRAN XL 120 MG ORAL CAPSULE EXTENDED RELEASE 24 HOUR PROPRANOLOL HCL SR BEADS Inactive PROMETHAZINE HCL 25 MG ORAL TABLET 1 Q. 4 hr. PRN 2013 PROMETHAZINE HCL 25 MG ORAL TABLET 721747 PROMETHAZINE HCL Inactive POTASSIUM CHLORIDE 20 MEQ ORAL PACKET by mouth twice a day prn 2 POTASSIUM CHLORIDE 20 MEQ ORAL PACKET 1038575 POTASSIUM CHLORIDE Inactive PHENADOZ 25 MG RECTAL SUPPOSITORY 1 every 4 hrs. PRN 2 PHENADOZ 25 MG RECTAL SUPPOSITORY 649975 PROMETHAZINE HCL Inactive ZOFRAN 8 MG ORAL TABLET 1 tab by mouth every 12 hours prn 4 ZOFRAN 8 MG ORAL TABLET 609663 ONDANSETRON HCL Inactive OMEPRAZOLE 20 MG ORAL CAPSULE DELAYED RELEASE 1 tablet by mo uth daily for GERD OMEPRAZOLE 20 MG ORAL CAPSULE DELAYED RELEASE 19 8051 OMEPRAZOLE Inactive CYCLOBENZAPRINE HCL 10 MG ORAL TABLET 1 tablet by mout h three times daily as needed for headaches CYCLOBENZAPRINE HCL 10 MG ORAL TABLET 976164 CYCLOBENZAPRINE HCL Inactive VITAMIN D3 4000 IU 1 tab 3 times daily VITAMIN D3 4000 IU Inactive PROPRANOLOL HCL 80 MG ORAL TABLET 1 tab tue. and thur. PROPRANOLOL HCL 80 MG ORAL TABLET 000376 PROPRANOLOL HCL Inacti ve CYANOCOBALAMIN 1000 MCG/ML INJECTION SOLUTION 1 injection ev ruben 2 weeks CYANOCOBALAMIN 1000 MCG/ML INJECTION SOLUTION 30 9594 CYANOCOBALAMIN Inactive MAGNESIUM GLUCONATE 250 MG ORAL TABLET 1 tab tid 20 23/10/23 MAGNESIUM GLUCONATE 250 MG ORAL TABLET 781808 MAGNESIUM GLUCONATE Inactive LOMOTIL 2.5-0.025 MG ORAL TABLET 1 tab by mouth prn 20 23/10/23 LOMOTIL 2.5-0.025 MG ORAL TABLET 4231325 DIPHENOXYLATE-ATROPINE Inac tive FLORANEX ORAL PACKET 1 pack three times daily, for bowel health FLORANEX ORAL PACKET 83003627429 LACTOBACILLUS Inactive IRON 325 (65 Fe) MG ORAL TABLET 1 every other day 2015 IRON 325 (65 Fe) MG ORAL TABLET 426363 FERROUS SULFATE Inactive FLAGYL 500 MG ORAL TABLET 1 pill by mouth three times daily, for diarrhea FLAGYL 500 MG ORAL TABLET 284051 METRONIDAZOLE I nactive BACTRIM DS 800-160 MG ORAL TABLET 1 pill by mouth twice claudio y, for UTI BACTRIM DS 800-160 MG ORAL TABLET 561443 SULFAMETHOXAZOLE-TRIMETHOPRIM Inactive Advance Directives Directive Description Start [...] ... - Chemistry sodium, serum 141 mmol/L 255-856 9811/01/10 potassium, serum 3.7 mmol/L 3.5-5.2 chloride, serum 101 mmol/L 98-107 carbon dioxide, venous blood 31.0 mmol/L 21.0-32 .0 blood glucose 96 mg/dL 65-95 calcium, serum 9.5 mg/dL 8.5-10.1 urea nitrogen, blood 21 mg/dL 7-18 creatinine, serum 1.40 mg/dL 0.60-1.30 Estimated Glomerular Filtration Rate (calc) 39 (?) mL/min/1.73m2 = OR > 60 mL/min cholesterol, serum 211 mg/dL 773-571 4200/01/10 triglyceride, serum, fasting 77 mg/dL 30-200 HDL [...] - Chem istry sodium, serum 142 mmol/L 296-234 8615/04/19 carbon dioxide, venous blood 30.2 mmol/L 21.0-32 [...] - Chelle radha sodium, serum 142 mmol/L 222-658 8183/11/02 potassium, serum 3.4 mmol/L 3.5-5.2 chloride, serum [...] mg/dL Encounters Code Encounter Date Provider Facility CPT-12880 [id number] Vst-Est Level III 14:29:19 CDT Fiorella enrico Kevonoliver [facility] [place] CPT-30542 Level 2 Est. Patient 14:58:26 CDT Kylie boyd [facility] [place] CPT-34747 Level 3 Est. Patient 08:15:24 CAR TRIMMER Kylie Lund [facility] [place] CPT-52244 Level 2 Est. Patient 14:27:16 CAR TRIMMER Kylie boyd [facility] [place] CPT-52040 Level 3 Est. Patient 17:54:48 CDT Kylie boyd [facility] [place] CPT-86818 Level 3 Est. Patient 16:26:30 CDT Kina blackmon [facility] CPT-91584 Level 3 New Patient 16:22:01 CAR TRIMMER Adam Yates MD [facility] CPT-52433 Level 4 Est. Patient 17:00:48 CDT Kylie boyd [facility] [place] CPT-83184 Level 3 Est. Patient 13:15:54 CDT Kylie boyd [facility] CPT-94305 Level 3 Est. Patient 09:10:11 CDT Kylie boyd DATA SUPPORT ANALYST [facility] CPT-81382 Level 4 Est. Patient 12:08:30 CAR TRIMMER Hope cohn MD PhD [facility] CPT-75496 Level 4 Est. Patient 19:08:42 CAR TRIMMER Hope cohn MD PhD [facility] CPT-10745 Level 4 Est. Patient 20:04:51 CDT Hope cohn MD PhD [facility] CPT-61495 Level 3 New Patient 01:46:11 CAR TRIMMER Hope landers MD PhD [facility] Procedures Code Procedure Name Date Entry Date Standard Desc ription CPT-92406 First Vx - Ix admin for Medicare patients 02/08 10:02:45 CDT CPT-71290 Fluzone Quadrivalent Intramuscular Suspe nsion 0.5 ML 10:02:45 CDT CPT-91952 Magnesium - LAB USE ONLY 09:41:00 CDT 12/09 CPT-25919 Renal Panel - LAB USE ONLY 09:41:00 CDT 201 09/17/01 CPT-83651 Venipuncture Draw Fee 09:41:00 CDT CPT-26394 Calcium - LAB USE ONLY 17:25:11 CDT CPT-J0897 Prolia 60 mg 15:10:59 CDT CPT-41637 Abx/Therapy Injection 15:10:59 CDT CPT-G0439 [facility] Annual Wellness Exam 14:29:19 CDT CPT-61910 Venipuncture Draw Fee 10:59:04 CDT CPT-29074 CMP - LAB USE ONLY 10:59:04 CDT CPT-66664 CBC with Diff - LAB USE ONLY 10:59:03 CDT 2 CPT-J0897 Prolia 60 mg 15:46:54 CAR TRIMMER CPT-05161 Abx/Therapy Injection 15:46:54 CAR TRIMMER CPT-96187 Microalbumin - LAB USE ONLY 09:41:32 CAR TRIMMER 20 23/01/15 CPT-42514 Free T4 - LAB USE ONLY 09:41:32 CAR TRIMMER CPT-96656 TSH - LAB USE ONLY 09:41:32 CAR TRIMMER CPT-29992 BMP - LAB USE ONLY 09:41:32 CAR TRIMMER CPT-95493 Venipuncture Draw Fee 09:41:32 CAR TRIMMER CPT-98491 First Vx - Ix admin for Medicare patients 11:19:30 CDT CPT-80194 Fluzone High-Dose Intramuscular Suspension 12/07 11:19:30 CDT CPT-J0897 Prolia 60 mg 14:55:42 CDT CPT-02918 Abx/Therapy Injection 14:55:42 CDT CPT-74018 Bone Density - XRAY USE ONLY 10:27:12 CDT 2 CPT-G0439 Subsequent Annual Wellness Exam 17:54:53 CDT CPT-42826 Foot, left, comp min 3V - XRAY USE ONLY 12:22:49 CDT CPT-G0009 Administration of Pneumococcal Vaccine 3 12:18:00 CDT CPT-33450 Pneumovax 23 Injection Injectable 25 MCG /0.5ML 12:18:00 CDT CPT-J0897 Prolia 60 mg 14:14:16 CAR TRIMMER CPT-77139 Abx/Therapy Injection 14:14:15 CAR TRIMMER CPT-45503 Lipid - LAB USE ONLY 10:01:52 CAR TRIMMER 2 CPT-25569 Calcium - LAB USE ONLY 10:01:51 CAR TRIMMER CPT-48742 Venipuncture Draw Fee 10:01:51 CAR TRIMMER CPT-LR Lesion Removal 16:22:01 CAR TRIMMER CPT-86090 TSH - LAB USE ONLY 14:26:02 CDT CPT-83152 CMP - LAB USE ONLY 14:26:01 CDT CPT-94445 CBC with Diff - LAB USE ONLY 14:26:01 CDT 2 CPT-22652 Venipuncture Draw Fee 14:26:01 CDT CPT-58654 First Vx - Ix admin for Medicare patients 13:27:08 CDT CPT-22357 Fluzone High-Dose Intramuscular Suspension 11/26 13:27:08 CDT CPT-G0438 Initial Annual Wellness Exam 14:19:57 CD T CPT-G0009 Administration of Pneumococcal Vaccine 9 11:36:25 CDT CPT-95794 Prevnar 13 Intramuscular Suspension 1 1:36:25 CDT CPT-32433 Prevnar 13 Intramuscular Suspension 1 0:40:58 CDT CPT-J0897 Prolia 60 mg 10:37:16 CDT CPT-25578 Abx/Therapy Injection 10:37:16 CDT CPT-J0897 Prolia 60 mg 16:09:34 CAR TRIMMER CPT-J0897 Prolia 60 mg 11:10:35 CAR TRIMMER CPT-54367 Abx/Therapy Injection 11:10:35 CAR TRIMMER CPT-000 Give Appropriate Flu Vaccine 17:01:15 CAR TRIMMER 2 CPT-87472 Fluzone High Dose (65+) 15:03:08 CAR TRIMMER 02/15 CPT-69857 Immunization Single Admin 15:03:08 CAR TRIMMER 2014 CPT-OV Office Visit 15:58:06 CDT CPT-J0897 Prolia 60 mg 08:45:38 CDT CPT-15438 Abx/Therapy Injection 08:45:38 CDT CPT-J3420 Vitamin B12 1000mcg (Cyanocobalamin) 09:26:20 CAR TRIMMER CPT-44243 Abx/Therapy Injection 09:26:20 CAR TRIMMER CPT-J3420 Vitamin B12 1000mcg (Cyanocobalamin) 09:44:40 CAR TRIMMER CPT-31059 Abx/Therapy Injection 09:44:40 CAR TRIMMER CPT-J3420 Vitamin B12 1000mcg (Cyanocobalamin) 09:15:54 CAR TRIMMER CPT-78855 Abx/Therapy Injection 09:15:54 CAR TRIMMER CPT-J3420 Vitamin B12 1000mcg (Cyanocobalamin) 09:46:44 CAR TRIMMER CPT-68416 Abx/Therapy Injection 09:46:44 CAR TRIMMER CPT-J3420 Vitamin B12 1000mcg (Cyanocobalamin) 09:47:34 CAR TRIMMER CPT-44522 Abx/Therapy Injection 09:47:34 CAR TRIMMER CPT-J3420 Vitamin B12 1000mcg (Cyanocobalamin) 14:35:50 CAR TRIMMER CPT-J3420 Vitamin B12 1000mcg (Cyanocobalamin) 09:25:05 CAR TRIMMER CPT-44441 Abx/Therapy Injection 09:25:05 CAR TRIMMER CPT-G0008 Administration of Influenza Virus Vaccine 13:36:47 CDT CPT-67889 Fluzone High-Dose Intramuscular Suspension 11/15 13:36:47 CDT CPT-J0897 Prolia 60 mg 08:50:41 CDT CPT-48092 Abx/Therapy Injection 08:50:41 CDT CPT-84424 Bone Density 12:06:12 CDT CPT-17864 Bone Density 08:54:40 CDT CPT-OV Office Visit 15:37:02 CDT CPT-21718 Postop F/U Visit 15:47:49 CDT CPT-07197 Postop F/U Visit 15:21:02 CDT CPT-[facility] Transitional Care Mgmt-High 07:52:27 CDT 20 20/06/01 CPT-49271 Venipuncture Draw Fee 13:51:18 CDT CPT-49552 Venipuncture Draw Fee 10:14:55 CAR TRIMMER CPT-68055 Venipuncture Draw Fee 13:39:45 CAR TRIMMER CPT-OV Office Visit 15:11:22 CAR TRIMMER CPT-91765 Venipuncture Draw Fee 09:20:49 CAR TRIMMER CPT-71569 Venipuncture Draw Fee 16:52:15 CAR TRIMMER CPT-13801 Venipuncture Draw Fee 10:37:24 CAR TRIMMER CPT-36596 Venipuncture Draw Fee 08:21:21 CAR TRIMMER CPT-49897 Venipuncture Draw Fee 08:30:20 CAR TRIMMER CPT-38253 Venipuncture Draw Fee 14:53:21 CAR TRIMMER CPT-27243 Venipuncture Draw Fee 09:40:56 CAR TRIMMER CPT-28574 Venipuncture Draw Fee 10:30:47 CAR TRIMMER CPT-89853 Venipuncture Draw Fee 10:46:17 CAR TRIMMER CPT-09202 Venipuncture Draw Fee 11:12:45 CAR TRIMMER CPT-53878 Venipuncture Draw Fee 09:53:33 CAR TRIMMER CPT-04811 Venipuncture Draw Fee 11:53:51 CAR TRIMMER CPT-95227 Venipuncture Draw Fee 10:33:50 CAR TRIMMER CPT-29287 Venipuncture Draw Fee 10:05:01 CAR TRIMMER CPT-56669 Venipuncture Draw Fee 14:32:52 CAR TRIMMER CPT-46908 Venipuncture Draw Fee 09:46:13 CAR TRIMMER CPT-86244 Venipuncture Draw Fee 11:34:27 CAR TRIMMER CPT-72993 Venipuncture Draw Fee 13:17:16 CAR TRIMMER CPT-53225 Venipuncture Draw Fee 12:05:39 CDT CPT-50522 Venipuncture Draw Fee 12:49:12 CDT CPT-35993 Venipuncture Draw Fee 12:37:18 CDT CPT-74960 Venipuncture Draw Fee 10:57:11 CDT CPT-84309 Venipuncture Draw Fee 13:47:40 CDT CPT-59983 Venipuncture Draw Fee 10:02:17 CDT CPT-54649 TB Tubersol 17:32:32 CDT CPT-OV Office Visit 16:21:53 CDT CPT-OV Office Visit 15:49:22 CDT CPT-OV Office Visit 17:16:31 CDT CPT-OV Office Visit 10:43:31 CDT
--- OUTSIDE RECORDS SUMMARY | 2019-02-09 12:06 | XMS REPORT | Clinical Summary ---
Author Author Renaldo, Florecita Munoz Organization [facility] Address Unknown Phone Unavailable Allergies, Adverse Reactions, [...] PhD Hyperpotassemia GERD 530.81 Resolved Kylie Yokum [employer] Esophageal reflux Health maintenance exam V70.0 Resolved Adolfo Yates MD Routine general medical examination at a health care facility Anemia 285.9 Resolved Kylie Yanet [employer] Anemia, unspecified Personal history of malignant neoplasm of large intestine V10.05 Active Adam Yates MD Personal history of malignant neoplasm of large intestine Hypomagnesemia 275.2 Resolved Kylie Yanet [employer] Disorders of magnesium metabolism Weakness 780.79 Resolved [...] Sebaceous cyst, scalp 706.2 Resolved Kylie Yokum [employer] Sebaceous cyst Cervical lymphadenopathy, anterior, left 785.6 Resolv ed Kylie Yokum [employer] Enlargement of lymph nodes Need for prophylactic vaccination and inoculation against in fluenza V04.81 Resolved Adam Yates MD Need for prophylactic vaccination and inoculation against influenza Preventive health care V70.0 Resolved Kylie Escalonaku m [employer] Routine general medical examination at a health care facility Thyroid nodule, left 241.0 Active Kylie Yokum A PRN Nontoxic uninodular goiter Screening mammogram V76.12 Resolved Kylie Yokum A PRN Other screening mammogram Mandy 706.2 Resolved Kylie Yokum [employer] Sebaceous cyst Colon cancer, ascending 153.6 Resolved Kylie Yok um [employer] Malignant neoplasm of ascending colon Foot pain, left 729.5 Resolved Kylie Yokum [employer] Pain in limb Splinter 919.6 Resolved Kylie Yokum [employer] Superficial foreign body (splinter) of other, multiple, and unspecified sites, without major open wound and without mention of infection Rash 782.1 Resolved Kylie Yokum [employer] Rash and other nonspecific skin eruption Cyst 706.2 Resolved Kylie Yokum [employer] Sebaceous cyst Body Mass Index 23.0-23.9 Adult Active Kylie Yokum [employer] Body Mass Index between 19-24, adult Unspecified fall, initial encounter E888.9 Inactive Kylie Holt [employer] Unspecified fall Eye pain, left 379.91 Inactive Kylie Holt [employer] Pain in or around eye Pharyngitis, acute 074.0 Active Kylie Holt APR N Herpangina Chronic kidney disease stage 2 585.2 Active Rosemarie Gresham RN Chronic kidney disease, Stage II (mild) Hypomagnesemia 275.2 Active Rosemarie Gresham RN Disorders of magnesium metabolism Hypokalemia 276.8 Active Rosemarie Gresham RN Hypopotassemia ABDOMINAL PAIN, RIGHT LOWER QUADRANT ICD-789.03 Inactive Kina Joshua [employer] ADENOCARCINOMA, COLON, 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 Dick Yates MD ABDOMINAL PAIN, GENERALIZED ICD-789.07 Inactive Hope Benavidez MD PhD FEVER UNSPECIFIED ICD-780.60 Inactive Hope cohn MD PhD UNSPECIFIED VENOUS INSUFFICIENCY ICD-459.81 Elda ctive Adam Yates MD ADENOCARCINOMA, 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 Inac tive Hope Benavidez MD PhD Hyperkalemia ICD-276.7 Inactive Hope Benavidez MD PhD GERD ICD-530.81 Inactive Kylie Holt [employer] 2015 Health maintenance exam ICD-V70.0 Bam Yates MD Anemia ICD-285.9 Inactive Kylie Holt [employer] 07/24 Hypomagnesemia ICD-275.2 Inactive Kylie Yokum [employer] Weakness ICD-780.79 Inactive Hope Benavidez MD P [...] cyst, scalp ICD-706.2 Inactive Tracy hi Yokum [employer] Cervical lymphadenopathy, anterior, left ICD-785.6 Inactive Kylie Yokum [employer] Need for prophylactic vaccination and inoculation against in fluenza ICD-V04.81 Inactive Adam Yates MD Preventive health care ICD-V70.0 Inactive Ka thi Yokum [employer] Screening mammogram ICD-V76.12 Inactive Kylie Yokum [employer] Mandy ICD-706.2 Inactive Kylie Yokum [employer] 07/20 Colon cancer, ascending ICD-153.6 Inactive K athi Yokum [employer] Foot pain, left ICD-729.5 Inactive Kylie Holt [employer] Splinter ICD-919.6 Inactive Kylie Holt [employer] 2017 Rash ICD-782.1 Inactive Kylie Holt [employer] 07/25 Cyst ICD-706.2 Inactive Kylie Holt [employer] 08/11 Unspecified fall, initial encounter ICD-E888.9 Inactive Kylie Holt [employer] Eye pain, left ICD-379.91 Inactive Kylie Holt APRN Medication List Medication Instructions Start Date Stop Date Generic Name NDC Status Provider Patient Instruction VOLTAREN 1 % TRANSDERMAL GEL apply 2 grams q 6-8 hour to left arm as needed for pain DICLOFENAC SODIUM 80857480011 Active Citlaly Roland Lisa Active IMODIUM A-D 2 MG ORAL TABLET 1 tablet twice a day LOPERAMIDE HCL 55264934728 Active Kylie Holt APRN Active COQ10 100 MG ORAL CAPSULE 1 daily COENZYME Q10 664998 63121 Active LETY Nation Active VITAMIN D3 2000 UNIT ORAL CAPSULE Melaleuca-One daily CHOLECALCIFEROL 31006413808 Active Kylie Holt APRN Active PROBIOTIC DAILY ORAL CAPSULE Take one daily PROBIO TIC PRODUCT 63134860147 Active Kylie Holt APRN Active IRON 325 (65 Fe) MG ORAL TABLET 1 every other day FERROUS SULFATE 77972799321 No Longer Active Kylie Holt APRN Active FLORANEX ORAL PACKET 1 pack three times daily, for bowel health LACTOBACILLUS 75859818332 No Longer Active Kylie Holt APRN Active LOMOTIL 2.5-0.025 MG ORAL TABLET 1 tab by mouth prn 20 23/10/23 DIPHENOXYLATE-ATROPINE 07029705914 No Longer Active Kylie Yokum [employer] Active MAGNESIUM GLUCONATE 250 MG ORAL TABLET 1 tab tid 23/10/23 MAGNESIUM GLUCONATE 13330630266 No Longer Active Kylie Lundum [employer] Active CYANOCOBALAMIN 1000 MCG/ML INJECTION SOLUTION 1 injection ev ruben 2 weeks CYANOCOBALAMIN 84005950888 No Longer Active Kylie Lund um [employer] Active ATENOLOL 25 MG ORAL TABLET 1/2 pill by mouth daily, fo r headaches, blood pressure ATENOLOL 96323724162 Active Kylie Yokum [employer] Active PROPRANOLOL HCL 80 MG ORAL TABLET 1 tab tue. and thur. PROPRANOLOL HCL 08983095073 No Longer Active Hope Benavidez MD PhD A ctive VITAMIN D3 4000 IU 1 tab 3 times daily VITAMIN D3 4000 IU No Longer Active Hope Benavidez MD PhD Active BACTRIM DS 800-160 MG ORAL TABLET 1 pill by mouth twice claudio y, for UTI SULFAMETHOXAZOLE-TRIMETHOPRIM 39073983378 No Longer Active Hope Benavidez MD PhD Active PROLIA 60 MG/ML SUBCUTANEOUS SOLUTION 1 shot every 6 months for osteoprosis DENOSUMAB 09253641672 Active Hope Benavidez MD PhD Active CALCIUM + D + K 750-500-40 MG-UNT-MCG ORAL TABLET 1 tab by m [facility] twice daily CALCIUM-VITAMIN D-VITAMIN K 04883092138 Active Hope valdez MD PhD Active DAILY VALUE MULTIVITAMIN ORAL TABLET 1 tab by mouth twice daily 201 05/16/14 MULTIPLE VITAMIN 77875056070 Active Hope Benavidez MD PhD Acti ve FISH OIL 306 MG CAPS 1 tab by mouth three times daily OMEGA-3 FATTY ACIDS 33992411397 Active Hope Benavidez MD PhD Active LUTEIN 10 MG ORAL TABLET 1 tab daily LUTEIN 16482756 408 Active Hope Benavidez MD PhD Active TRIAMTERENE-HCTZ 37.5-25 MG ORAL TABLET 1 tab by mouth daily 10/22 TRIAMTERENE-HCTZ 25162796398 Active LETY Rossi Activ e CYCLOBENZAPRINE HCL 10 MG ORAL TABLET 1 tablet by mout three times daily as needed for headaches CYCLOBENZAPRINE HCL 70489485769 No Longer Active Adam Yates MD Active OMEPRAZOLE 20 MG ORAL CAPSULE DELAYED RELEASE 1 tablet by mo [facility] daily for GERD OMEPRAZOLE 95912982810 No Longer Active Adam Yates MD Active ZOFRAN 8 MG ORAL TABLET 1 tab by mouth every 12 hours prn 4 ONDANSETRON HCL 73996922908 No Longer Active Adam Yates MD Active PHENADOZ 25 MG RECTAL SUPPOSITORY 1 every 4 hrs. PRN 2 PROMETHAZINE HCL 81006141455 No Longer Active Adam Yates MD A ctive POTASSIUM CHLORIDE 20 MEQ ORAL PACKET by mouth twice a day prn 2 POTASSIUM CHLORIDE 84985446599 No Longer Active Adam Carpenter MD Active PROMETHAZINE HCL 25 MG ORAL TABLET 1 Q. 4 hr. PRN PROMETHAZINE HCL 76350521596 No Longer Active Adam Yates MD Active INNOPRAN XL 120 MG ORAL CAPSULE EXTENDED RELEASE 24 HO UR Take one by mouth daily PROPRANOLOL HCL SR BEADS 34642230519 No Longer Active Adam Yates MD Active FLAGYL 500 MG ORAL TABLET 1 pill by mouth three times daily, for diarrhea METRONIDAZOLE 23016910613 No Longer Active Hope landers MD PhD Active DYAZIDE 37.5-25 MG ORAL CAPSULE 1 qd TRIA MTERENE-HCTZ 20543278409 No Longer Active Hope Benavidez MD PhD Active PROZAC 20 MG ORAL CAPSULE 1 q d FLUOXETINE HCL 63502319331 No Longer Active Hope Benavidez MD PhD Active SIMVASTATIN 40 MG ORAL TABLET 1 qd SIMVAS TATIN 24289062804 No Longer Active Adam Yates MD Active MELOXICAM 15 MG ORAL TABLET 1 qd MELOXICAM 82977275255 No Longer Active Adam Yates MD Active EXCEDRIN EXTRA STRENGTH 250-250-65 MG ORAL TABLET 1-2 q6h SD N headache [id number] 61731850095 Active Hope Benavidez MD PhD Active FLAGYL 500 MG ORAL TABLET 1 qid METRONIDAZOL E 69296482602 No Longer Active Adam Yates MD Active LEVAQUIN 750 MG ORAL TABLET 1 qd LEVOFLOXAC IN 97120709341 No Longer Active Adam Yates MD Active ADULT ASPIRIN LOW STRENGTH 81 MG ORAL TABLET DISINTEGRATING 1 qd ASPIRIN 23965828481 Active Hope Benavidez MD PhD Active LEVAQUIN 750 MG ORAL TABLET 1 qd LEVAQUIN 750 MG ORAL TABLET 644542 LEVOFLOXACIN Inactive FLAGYL 500 MG ORAL TABLET 1 qid FLAGYL 500 MG ORAL TABLET 239640 METRONIDAZOLE Inactive MELOXICAM 15 MG ORAL TABLET 1 qd MELOXICAM 15 MG ORAL TABLET 548510 MELOXICAM Inactive SIMVASTATIN 40 MG ORAL TABLET 1 qd SIMVASTATIN 40 MG ORAL TABLET 967440 SIMVASTATIN Inactive PROZAC 20 MG ORAL CAPSULE 1 q d PROZAC 20 MG ORAL CAPSULE 321483 FLUOXETINE HCL Inactive DYAZIDE 37.5-25 MG ORAL CAPSULE 1 qd 5 DYAZIDE 37.5-25 MG ORAL CAPSULE 794199 TRIAMTERENE-HCTZ Inactive INNOPRAN XL 120 MG ORAL CAPSULE EXTENDED RELEASE 24 HO UR Take one by mouth daily INNOPRAN XL 120 MG ORAL CAPSULE EXTENDED RELEASE 24 HOUR PROPRANOLOL HCL SR BEADS Inactive PROMETHAZINE HCL 25 MG ORAL TABLET 1 Q. 4 hr. PRN 2013 PROMETHAZINE HCL 25 MG ORAL TABLET 924969 PROMETHAZINE HCL Inactive POTASSIUM CHLORIDE 20 MEQ ORAL PACKET by mouth twice a day prn 2 POTASSIUM CHLORIDE 20 MEQ ORAL PACKET 7878323 POTASSIUM CHLORIDE Inactive PHENADOZ 25 MG RECTAL SUPPOSITORY 1 every 4 hrs. PRN 2 PHENADOZ 25 MG RECTAL SUPPOSITORY 574996 PROMETHAZINE HCL Inactive ZOFRAN 8 MG ORAL TABLET 1 tab by mouth every 12 hours prn 4 ZOFRAN 8 MG ORAL TABLET 881973 ONDANSETRON HCL Inactive OMEPRAZOLE 20 MG ORAL CAPSULE DELAYED RELEASE 1 tablet by mo uth daily for GERD OMEPRAZOLE 20 MG ORAL CAPSULE DELAYED RELEASE 19 8051 OMEPRAZOLE Inactive CYCLOBENZAPRINE HCL 10 MG ORAL TABLET 1 tablet by mout h three times daily as needed for headaches CYCLOBENZAPRINE HCL 10 MG ORAL TABLET 650656 CYCLOBENZAPRINE HCL Inactive VITAMIN D3 4000 IU 1 tab 3 times daily VITAMIN D3 4000 IU Inactive PROPRANOLOL HCL 80 MG ORAL TABLET 1 tab tue. and thur. PROPRANOLOL HCL 80 MG ORAL TABLET 157640 PROPRANOLOL HCL Inacti ve CYANOCOBALAMIN 1000 MCG/ML INJECTION SOLUTION 1 injection ev ruben 2 weeks CYANOCOBALAMIN 1000 MCG/ML INJECTION SOLUTION 30 9594 CYANOCOBALAMIN Inactive MAGNESIUM GLUCONATE 250 MG ORAL TABLET 1 tab tid 23/10/23 MAGNESIUM GLUCONATE 250 MG ORAL TABLET 220666 MAGNESIUM GLUCONATE Inactive LOMOTIL 2.5-0.025 MG ORAL TABLET 1 tab by mouth prn 23/10/23 LOMOTIL 2.5-0.025 MG ORAL TABLET 0023251 DIPHENOXYLATE-ATROPINE Inac tive FLORANEX ORAL PACKET 1 pack three times daily, for bowel health FLORANEX ORAL PACKET 25041468048 LACTOBACILLUS Inactive IRON 325 (65 Fe) MG ORAL TABLET 1 every other day 2015 IRON 325 (65 Fe) MG ORAL TABLET 990227 FERROUS SULFATE Inactive FLAGYL 500 MG ORAL TABLET 1 pill by mouth three times daily, for diarrhea FLAGYL 500 MG ORAL TABLET 486518 METRONIDAZOLE I nactive BACTRIM DS 800-160 MG ORAL TABLET 1 pill by mouth twice claudio y, for UTI BACTRIM DS 800-160 MG ORAL TABLET 750185 SULFAMETHOXAZOLE-TRIMETHOPRIM Inactive Advance Directives Directive Description Start [...] - Chem istry sodium, serum 142 mmol/L 961-431 2123/04/19 carbon dioxide, venous blood 30.2 mmol/L 21.0-32 [...] - Chelle radha sodium, serum 142 mmol/L 920-248 9360/11/02 potassium, serum 3.4 mmol/L 3.5-5.2 chloride, serum [...] mg/dL Encounters Code Encounter Date Provider Facility CPT-87362 [id number] Vst-Est Level III 14:29:19 CDT Fiorella Holt [facility] CPT-23538 Level 2 Est. Patient 14:58:26 CDT Kylie boyd [facility] CPT-44510 Level 3 Est. Patient 08:15:24 POSTAL SORTING OFFICER Kylie boyd [facility] CPT-40945 Level 2 Est. Patient 14:27:16 POSTAL SORTING OFFICER Kylie boyd [facility] CPT-88160 Level 3 Est. Patient 17:54:48 CDT Kylie Lund [facility] CPT-99870 Level 3 Est. Patient 16:26:30 CDT Kina Terry blackmon [facility] CPT-66075 Level 3 New Patient 16:22:01 POSTAL SORTING OFFICER Adam Yates MD [facility] CPT-90342 Level 4 Est. Patient 17:00:48 CDT Kylie Lund [facility] CPT-56729 Level 3 Est. Patient 13:15:54 CDT Kylie Lund [facility] CPT-78869 Level 3 Est. Patient 09:10:11 CDT Kylie Lund [facility] CPT-47720 Level 4 Est. Patient 12:08:30 POSTAL SORTING OFFICER Hope cohn MD [facility] CPT-30069 Level 4 Est. Patient 19:08:42 POSTAL SORTING OFFICER Hope cohn MD [facility] CPT-14338 Level 4 Est. Patient 20:04:51 CDT Hope cohn MD [facility] CPT-97753 Level 3 New Patient 01:46:11 POSTAL SORTING OFFICER Hope landers MD PhD [facility] Procedures Code Procedure Name Date Entry Date Standard Desc ription CPT-39458 First Vx - Ix admin for Medicare patients 02/08 10:02:45 CDT CPT-11146 Fluzone Quadrivalent Intramuscular Suspe nsion 0.5 ML 10:02:45 CDT CPT-17780 Magnesium - LAB USE ONLY 09:41:00 CDT 12/09 CPT-27709 Renal Panel - LAB USE ONLY 09:41:00 CDT 201 09/17/01 CPT-39128 Venipuncture Draw Fee 09:41:00 CDT CPT-11882 Calcium - LAB USE ONLY 17:25:11 CDT CPT-J0897 Prolia 60 mg 15:10:59 CDT CPT-18715 Abx/Therapy Injection 15:10:59 CDT CPT-G0439 Subsequent Annual Wellness Exam 14:29:19 CDT CPT-21901 Venipuncture Draw Fee 10:59:04 CDT CPT-77305 CMP - LAB USE ONLY 10:59:04 CDT CPT-75232 CBC with Diff - LAB USE ONLY 10:59:03 CDT 2 CPT-J0897 Prolia 60 mg 15:46:54 POSTAL SORTING OFFICER CPT-78416 Abx/Therapy Injection 15:46:54 POSTAL SORTING OFFICER CPT-40317 Microalbumin - LAB USE ONLY 09:41:32 POSTAL SORTING OFFICER 20 23/01/15 CPT-51915 Free T4 - LAB USE ONLY 09:41:32 POSTAL SORTING OFFICER CPT-10528 TSH - LAB USE ONLY 09:41:32 POSTAL SORTING OFFICER CPT-87236 BMP - LAB USE ONLY 09:41:32 POSTAL SORTING OFFICER CPT-40042 Venipuncture Draw Fee 09:41:32 POSTAL SORTING OFFICER CPT-34097 First Vx - Ix admin for Medicare patients 11:19:30 CDT CPT-30249 Fluzone High-Dose Intramuscular Suspension 12/07 11:19:30 CDT CPT-J0897 Prolia 60 mg 14:55:42 CDT CPT-89444 Abx/Therapy Injection 14:55:42 CDT CPT-96879 Bone Density - XRAY USE ONLY 10:27:12 CDT 2 CPT-G0439 MC Subsequent Annual Wellness Exam 17:54:53 CDT CPT-96030 Foot, left, comp min 3V - XRAY USE ONLY 12:22:49 CDT CPT-G0009 Administration of Pneumococcal Vaccine 3 12:18:00 CDT CPT-10068 Pneumovax 23 Injection Injectable 25 MCG /0.5ML 12:18:00 CDT CPT-J0897 Prolia 60 mg 14:14:16 POSTAL SORTING OFFICER CPT-54915 Abx/Therapy Injection 14:14:15 POSTAL SORTING OFFICER CPT-61072 Lipid - LAB USE ONLY 10:01:52 POSTAL SORTING OFFICER 2 CPT-08603 Calcium - LAB USE ONLY 10:01:51 POSTAL SORTING OFFICER CPT-33465 Venipuncture Draw Fee 10:01:51 POSTAL SORTING OFFICER CPT-LR Lesion Removal 16:22:01 POSTAL SORTING OFFICER CPT-99911 TSH - LAB USE ONLY 14:26:02 CDT CPT-81097 CMP - LAB USE ONLY 14:26:01 CDT CPT-38656 CBC with Diff - LAB USE ONLY 14:26:01 CDT 2 CPT-52782 Venipuncture Draw Fee 14:26:01 CDT CPT-53045 First Vx - Ix admin for Medicare patients 13:27:08 CDT CPT-03254 Fluzone High-Dose Intramuscular Suspension 11/26 13:27:08 CDT CPT-G0438 Initial Annual Wellness Exam 14:19:57 CD T CPT-G0009 Administration of Pneumococcal Vaccine 9 11:36:25 CDT CPT-06886 Prevnar 13 Intramuscular Suspension 1 1:36:25 CDT CPT-79452 Prevnar 13 Intramuscular Suspension 1 0:40:58 CDT CPT-J0897 Prolia 60 mg 10:37:16 CDT CPT-82473 Abx/Therapy Injection 10:37:16 CDT CPT-J0897 Prolia 60 mg 16:09:34 POSTAL SORTING OFFICER CPT-J0897 Prolia 60 mg 11:10:35 POSTAL SORTING OFFICER CPT-51167 Abx/Therapy Injection 11:10:35 POSTAL SORTING OFFICER CPT-000 Give Appropriate Flu Vaccine 17:01:15 POSTAL SORTING OFFICER 2 CPT-90205 Fluzone High Dose (65+) 15:03:08 POSTAL SORTING OFFICER 02/15 CPT-48084 Immunization Single Admin 15:03:08 POSTAL SORTING OFFICER 2014 CPT-OV Office Visit 15:58:06 CDT CPT-J0897 Prolia 60 mg 08:45:38 CDT CPT-62256 Abx/Therapy Injection 08:45:38 CDT CPT-J3420 Vitamin B12 1000mcg (Cyanocobalamin) 09:26:20 POSTAL SORTING OFFICER CPT-68100 Abx/Therapy Injection 09:26:20 POSTAL SORTING OFFICER CPT-J3420 Vitamin B12 1000mcg (Cyanocobalamin) 09:44:40 POSTAL SORTING OFFICER CPT-82675 Abx/Therapy Injection 09:44:40 POSTAL SORTING OFFICER CPT-J3420 Vitamin B12 1000mcg (Cyanocobalamin) 09:15:54 POSTAL SORTING OFFICER CPT-55626 Abx/Therapy Injection 09:15:54 POSTAL SORTING OFFICER CPT-J3420 Vitamin B12 1000mcg (Cyanocobalamin) 09:46:44 POSTAL SORTING OFFICER CPT-56784 Abx/Therapy Injection 09:46:44 POSTAL SORTING OFFICER CPT-J3420 Vitamin B12 1000mcg (Cyanocobalamin) 09:47:34 POSTAL SORTING OFFICER CPT-24990 Abx/Therapy Injection 09:47:34 POSTAL SORTING OFFICER CPT-J3420 Vitamin B12 1000mcg (Cyanocobalamin) 14:35:50 POSTAL SORTING OFFICER CPT-J3420 Vitamin B12 1000mcg (Cyanocobalamin) 09:25:05 POSTAL SORTING OFFICER CPT-97615 Abx/Therapy Injection 09:25:05 POSTAL SORTING OFFICER CPT-G0008 Administration of Influenza Virus Vaccine 13:36:47 CDT CPT-79892 Fluzone High-Dose Intramuscular Suspension 11/15 13:36:47 CDT CPT-J0897 Prolia 60 mg 08:50:41 CDT CPT-83186 Abx/Therapy Injection 08:50:41 CDT CPT-02164 Bone Density 12:06:12 CDT CPT-69729 Bone Density 08:54:40 CDT CPT-OV Office Visit 15:37:02 CDT CPT-84561 Postop F/U Visit 15:47:49 CDT CPT-31041 Postop F/U Visit 15:21:02 CDT CPT-TCMH Transitional Care Mgmt-High 07:52:27 CDT 20 20/06/01 CPT-28147 Venipuncture Draw Fee 13:51:18 CDT CPT-99663 Venipuncture Draw Fee 10:14:55 POSTAL SORTING OFFICER CPT-54639 Venipuncture Draw Fee 13:39:45 POSTAL SORTING OFFICER CPT-OV Office Visit 15:11:22 POSTAL SORTING OFFICER CPT-57008 Venipuncture Draw Fee 09:20:49 POSTAL SORTING OFFICER CPT-44689 Venipuncture Draw Fee 16:52:15 POSTAL SORTING OFFICER CPT-78589 Venipuncture Draw Fee 10:37:24 POSTAL SORTING OFFICER CPT-66029 Venipuncture Draw Fee 08:21:21 POSTAL SORTING OFFICER CPT-01132 Venipuncture Draw Fee 08:30:20 POSTAL SORTING OFFICER CPT-16395 Venipuncture Draw Fee 14:53:21 POSTAL SORTING OFFICER CPT-25306 Venipuncture Draw Fee 09:40:56 POSTAL SORTING OFFICER CPT-55127 Venipuncture Draw Fee 10:30:47 POSTAL SORTING OFFICER CPT-83539 Venipuncture Draw Fee 10:46:17 POSTAL SORTING OFFICER CPT-38915 Venipuncture Draw Fee 11:12:45 POSTAL SORTING OFFICER CPT-94610 Venipuncture Draw Fee 09:53:33 POSTAL SORTING OFFICER CPT-90965 Venipuncture Draw Fee 11:53:51 POSTAL SORTING OFFICER CPT-78261 Venipuncture Draw Fee 10:33:50 POSTAL SORTING OFFICER CPT-09223 Venipuncture Draw Fee 10:05:01 POSTAL SORTING OFFICER CPT-63396 Venipuncture Draw Fee 14:32:52 POSTAL SORTING OFFICER CPT-69440 Venipuncture Draw Fee 09:46:13 POSTAL SORTING OFFICER CPT-88149 Venipuncture Draw Fee 11:34:27 POSTAL SORTING OFFICER CPT-96190 Venipuncture Draw Fee 13:17:16 POSTAL SORTING OFFICER CPT-48206 Venipuncture Draw Fee 12:05:39 CDT CPT-57977 Venipuncture Draw Fee 12:49:12 CDT CPT-56364 Venipuncture Draw Fee 12:37:18 CDT CPT-69894 Venipuncture Draw Fee 10:57:11 CDT CPT-75844 Venipuncture Draw Fee 13:47:40 CDT CPT-50442 Venipuncture Draw Fee 10:02:17 CDT CPT-63501 TB Tubersol 17:32:32 CDT CPT-OV Office Visit 16:21:53 CDT CPT-OV Office Visit 15:49:22 CDT CPT-OV Office Visit 17:16:31 CDT CPT-OV Office Visit 10:43:31 CDT
--- OUTSIDE RECORDS SUMMARY | 2019-02-09 12:07 | XMS REPORT | Clinical Summary ---
Author Author Admin, Florecita Munoz Organization [facility] Address Unknown Phone Unavailable Allergies, Adverse Reactions, [...] Sebaceous cyst, scalp 706.2 Resolved Kylie Yokum CREEL [employer] Sebaceous cyst Cervical lymphadenopathy, anterior, left 785.6 Resolv ed Kylie Yokum CREEL [employer] Enlargement of lymph nodes Need for prophylactic vaccination and inoculation against in fluenza V04.81 Resolved Adam Yates MD Need for prophylactic vaccination and inoculation against influenza Preventive health care V70.0 Resolved Kylie Yoku m CREEL HAND Routine general medical examination at a health care facility Thyroid nodule, left 241.0 Active Kylie Yokum A PRN Nontoxic uninodular goiter Screening mammogram V76.12 Resolved Kylie Yokum A PRN Other screening mammogram Mandy 706.2 Resolved Kylie Yokum CREEL HAND Sebaceous cyst Colon cancer, ascending 153.6 Resolved Kylie Yok um CREEL HAND Malignant neoplasm of ascending colon Foot pain, left 729.5 Resolved Kylie Yokum CREEL HAND Pain in limb Splinter 919.6 Resolved Kylie Yokum CREEL HAND Superficial foreign body (splinter) of other, multiple, and unspecified sites, without major open wound and without mention of infection Rash 782.1 Resolved Kylie Yokum CREEL HAND Rash and other nonspecific skin eruption Cyst 706.2 Resolved Kylie Yokum CREEL HAND Sebaceous cyst Body Mass Index 23.0-23.9 Adult Active Kylie Yokum CREEL HAND Body Mass Index between 19-24, adult Unspecified fall, initial encounter E888.9 Inactive Kylie Holt CREEL HAND Unspecified fall Eye pain, left 379.91 Inactive Kylie Holt CREEL HAND Pain in or around eye Pharyngitis, acute 074.0 Active Kylie Holt APR N Herpangina Chronic kidney disease stage 2 585.2 Active Rosemarie Gresham RN Chronic kidney disease, Stage II (mild) Hypomagnesemia 275.2 Active Rosemarie Gresham RN Disorders of magnesium metabolism Hypokalemia 276.8 Active Rosemarie Gresham RN Hypopotassemia ABDOMINAL PAIN, RIGHT LOWER QUADRANT ICD-789.03 Inactive Kina Joshua CREEL HAND ADENOCARCINOMA, COLON, 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 Dick Yates MD ABDOMINAL PAIN, GENERALIZED ICD-789.07 Inactive Hope Benavidez MD PhD FEVER UNSPECIFIED ICD-780.60 Inactive Hope cohn MD PhD UNSPECIFIED VENOUS INSUFFICIENCY ICD-459.81 [place] ctive Adam Yates MD ADENOCARCINOMA, 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 Inac tive Hope Benavidez MD PhD Hyperkalemia ICD-276.7 Inactive Hope Benavidez MD PhD GERD ICD-530.81 Inactive Kylie Holt CREEL HAND 2015 Health maintenance exam ICD-V70.0 Bam Yates MD Anemia ICD-285.9 Inactive Kylie Holt CREEL HAND 07/24 Hypomagnesemia ICD-275.2 Inactive Kylie Yokum CREEL HAND Weakness ICD-780.79 Inactive Hope Benavidez MD P [...] cyst, scalp ICD-706.2 Inactive Tracy hi Yokum CREEL HAND Cervical lymphadenopathy, anterior, left ICD-785.6 Inactive Kylie Yokum CREEL HAND Need for prophylactic vaccination and inoculation against in fluenza ICD-V04.81 Inactive Adam Yates MD Preventive health care ICD-V70.0 Inactive Ka thi Yokum CREEL HAND Screening mammogram ICD-V76.12 Inactive Kylie Yokum CREEL HAND Mandy ICD-706.2 Inactive Kylie Yokum CREEL HAND 07/20 Colon cancer, ascending ICD-153.6 Inactive K athi Yokum CREEL HAND Foot pain, left ICD-729.5 Inactive Kylie Holt CREEL HAND Splinter ICD-919.6 Inactive Kylie Holt CREEL HAND 2017 Rash ICD-782.1 Inactive Kylie Holt CREEL HAND 07/25 Cyst ICD-706.2 Inactive Kylie Holt CREEL HAND 08/11 Unspecified fall, initial encounter ICD-E888.9 Inactive Kylie Holt CREEL HAND Eye pain, left ICD-379.91 Inactive Kylie Holt CREEL HAND Medication List Medication Instructions Start Date Stop Date Generic Name NDC Status Provider Patient Instruction VOLTAREN 1 % TRANSDERMAL GEL apply 2 grams q 6-8 hour to left arm as needed for pain DICLOFENAC SODIUM 69898986615 Active Citlaly Watkins [facility] Active IMODIUM A-D 2 MG ORAL TABLET 1 tablet twice a day LOPERAMIDE HCL 15420462319 Active Kylie Holt AMY Active COQ10 100 MG ORAL CAPSULE 1 daily COENZYME Q10 759545 72446 Active LETY [place] Active VITAMIN D3 2000 UNIT ORAL CAPSULE Melaleuca-One daily CHOLECALCIFEROL 37851678719 Active Kylie Holt AMY Active PROBIOTIC DAILY ORAL CAPSULE Take one daily PROBIO TIC PRODUCT 76410659353 Active Kylie Holt APRN Active IRON 325 (65 Fe) MG ORAL TABLET 1 every other day FERROUS SULFATE 77351956037 No Longer Active Kylie Holt AMY Active FLORANEX ORAL PACKET 1 pack three times daily, for bowel health LACTOBACILLUS 37380554581 No Longer Active Kylie Holt APRN Active LOMOTIL 2.5-0.025 MG ORAL TABLET 1 tab by mouth prn 20 23/10/23 DIPHENOXYLATE-ATROPINE 51956382363 No Longer Active Kylie Yokum CREEL HAND Active MAGNESIUM GLUCONATE 250 MG ORAL TABLET 1 tab tid 23/10/23 MAGNESIUM GLUCONATE 24408737253 No Longer Active Kylie Lundum CREEL [facility] Active CYANOCOBALAMIN 1000 MCG/ML INJECTION SOLUTION 1 injection ev ruebn 2 weeks CYANOCOBALAMIN 68852595820 No Longer Active Kylie Lund um CREEL HAND Active ATENOLOL 25 MG ORAL TABLET 1/2 pill by mouth daily, fo r headaches, blood pressure ATENOLOL 82603859114 Active Kylie Escalonakum CREEL HAND Active PROPRANOLOL HCL 80 MG ORAL TABLET 1 tab tue. and thur. PROPRANOLOL HCL 96928691515 No Longer Active Hope Benavidez MD PhD A ctive VITAMIN D3 4000 IU 1 tab 3 times daily VITAMIN D3 4000 IU No Longer Active Hope Benavidez MD PhD Active BACTRIM DS 800-160 MG ORAL TABLET 1 pill by mouth twice claudio y, for UTI SULFAMETHOXAZOLE-TRIMETHOPRIM 78139245511 No Longer Active Hope Benavidez MD PhD Active PROLIA 60 MG/ML SUBCUTANEOUS SOLUTION 1 shot every 6 months for osteoprosis DENOSUMAB 42350218682 Active Hope Benavidez MD PhD Active CALCIUM + D + K 750-500-40 MG-UNT-MCG ORAL TABLET 1 tab by m outh twice daily CALCIUM-VITAMIN D-VITAMIN K 14272026050 Active Hope valdez MD PhD Active DAILY VALUE MULTIVITAMIN ORAL TABLET 1 tab by mouth twice daily 201 05/16/14 MULTIPLE VITAMIN 73818351010 Active Hope Benavidez MD PhD Acti ve FISH OIL 306 MG CAPS 1 tab by mouth three times daily OMEGA-3 FATTY ACIDS 36661601004 Active Hope Benavidez MD PhD Active LUTEIN 10 MG ORAL TABLET 1 tab daily LUTEIN 89604673 408 Active Hope Benavidez MD PhD Active TRIAMTERENE-HCTZ 37.5-25 MG ORAL TABLET 1 tab by mouth daily 10/22 TRIAMTERENE-HCTZ 27821812608 Active Kylie Lundum CREEL [facility] Active CYCLOBENZAPRINE HCL 10 MG ORAL TABLET 1 tablet by mout three times daily as needed for headaches CYCLOBENZAPRINE HCL 68610348046 No Longer Active Adam Yates MD Active OMEPRAZOLE 20 MG ORAL CAPSULE DELAYED RELEASE 1 tablet by mo [facility] daily for GERD OMEPRAZOLE 03793731383 No Longer Active Adam Yates MD Active ZOFRAN 8 MG ORAL TABLET 1 tab by mouth every 12 hours prn 4 ONDANSETRON HCL 96950785500 No Longer Active Adam Yates MD Active PHENADOZ 25 MG RECTAL SUPPOSITORY 1 every 4 hrs. PRN 2 PROMETHAZINE HCL 24281101296 No Longer Active Adam Yates MD A ctive POTASSIUM CHLORIDE 20 MEQ ORAL PACKET by mouth twice a day prn 2 POTASSIUM CHLORIDE 95777080742 No Longer Active Adam Carpenter MD Active PROMETHAZINE HCL 25 MG ORAL TABLET 1 Q. 4 hr. PRN PROMETHAZINE HCL 02480048923 No Longer Active Adam Yates MD Active INNOPRAN XL 120 MG ORAL CAPSULE EXTENDED RELEASE 24 HO UR Take one by mouth daily PROPRANOLOL HCL SR BEADS 80194969317 No Longer Active Adam Yates MD Active FLAGYL 500 MG ORAL TABLET 1 pill by mouth three times daily, for diarrhea METRONIDAZOLE 30565265027 No Longer Active Hope landers MD PhD Active DYAZIDE 37.5-25 MG ORAL CAPSULE 1 qd TRIA MTERENE-HCTZ 32654231800 No Longer Active Hope Benavidez MD PhD Active PROZAC 20 MG ORAL CAPSULE 1 q d FLUOXETINE HCL 58033010766 No Longer Active Hope Benavidez MD PhD Active SIMVASTATIN 40 MG ORAL TABLET 1 qd SIMVAS TATIN 38784665401 No Longer Active Adam Yates MD Active MELOXICAM 15 MG ORAL TABLET 1 qd MELOXICAM 70466522315 No Longer Active Adam Yates MD Active EXCEDRIN EXTRA STRENGTH 250-250-65 MG ORAL TABLET 1-2 q6h NV N headache [id number] 76828260152 Active Hope Benavidez MD PhD Active FLAGYL 500 MG ORAL TABLET 1 qid METRONIDAZOL E 53657485195 No Longer Active Adam Yates MD Active LEVAQUIN 750 MG ORAL TABLET 1 qd LEVOFLOXAC IN 42321138817 No Longer Active Adam Yates MD Active ADULT ASPIRIN LOW STRENGTH 81 MG ORAL TABLET DISINTEGRATING 1 qd ASPIRIN 36673198260 Active Hope Benavidez MD PhD Active LEVAQUIN 750 MG ORAL TABLET 1 qd LEVAQUIN 750 MG ORAL TABLET 759039 LEVOFLOXACIN Inactive FLAGYL 500 MG ORAL TABLET 1 qid FLAGYL 500 MG ORAL TABLET 324648 METRONIDAZOLE Inactive MELOXICAM 15 MG ORAL TABLET 1 qd MELOXICAM 15 MG ORAL TABLET 494429 MELOXICAM Inactive SIMVASTATIN 40 MG ORAL TABLET 1 qd SIMVASTATIN 40 MG ORAL TABLET 819014 SIMVASTATIN Inactive PROZAC 20 MG ORAL CAPSULE 1 q d PROZAC 20 MG ORAL CAPSULE 619924 FLUOXETINE HCL Inactive DYAZIDE 37.5-25 MG ORAL CAPSULE 1 qd 5 DYAZIDE 37.5-25 MG ORAL CAPSULE 946518 TRIAMTERENE-HCTZ Inactive INNOPRAN XL 120 MG ORAL CAPSULE EXTENDED RELEASE 24 HO UR Take one by mouth daily INNOPRAN XL 120 MG ORAL CAPSULE EXTENDED RELEASE 24 HOUR PROPRANOLOL HCL SR BEADS Inactive PROMETHAZINE HCL 25 MG ORAL TABLET 1 Q. 4 hr. PRN 2013 PROMETHAZINE HCL 25 MG ORAL TABLET 134849 PROMETHAZINE HCL Inactive POTASSIUM CHLORIDE 20 MEQ ORAL PACKET by mouth twice a day prn 2 POTASSIUM CHLORIDE 20 MEQ ORAL PACKET 7224327 POTASSIUM CHLORIDE Inactive PHENADOZ 25 MG RECTAL SUPPOSITORY 1 every 4 hrs. PRN 2 PHENADOZ 25 MG RECTAL SUPPOSITORY 288664 PROMETHAZINE HCL Inactive ZOFRAN 8 MG ORAL TABLET 1 tab by mouth every 12 hours prn 4 ZOFRAN 8 MG ORAL TABLET 895822 ONDANSETRON HCL Inactive OMEPRAZOLE 20 MG ORAL CAPSULE DELAYED RELEASE 1 tablet by mo uth daily for GERD OMEPRAZOLE 20 MG ORAL CAPSULE DELAYED RELEASE 19 8051 OMEPRAZOLE Inactive CYCLOBENZAPRINE HCL 10 MG ORAL TABLET 1 tablet by mout h three times daily as needed for headaches CYCLOBENZAPRINE HCL 10 MG ORAL TABLET 311992 CYCLOBENZAPRINE HCL Inactive VITAMIN D3 4000 IU 1 tab 3 times daily VITAMIN D3 4000 IU Inactive PROPRANOLOL HCL 80 MG ORAL TABLET 1 tab tue. and thur. PROPRANOLOL HCL 80 MG ORAL TABLET 108201 PROPRANOLOL HCL Inacti ve CYANOCOBALAMIN 1000 MCG/ML INJECTION SOLUTION 1 injection ev ruben 2 weeks CYANOCOBALAMIN 1000 MCG/ML INJECTION SOLUTION 30 9594 CYANOCOBALAMIN Inactive MAGNESIUM GLUCONATE 250 MG ORAL TABLET 1 tab tid 20 23/10/23 MAGNESIUM GLUCONATE 250 MG ORAL TABLET 606457 MAGNESIUM GLUCONATE Inactive LOMOTIL 2.5-0.025 MG ORAL TABLET 1 tab by mouth prn 20 23/10/23 LOMOTIL 2.5-0.025 MG ORAL TABLET 7979499 DIPHENOXYLATE-ATROPINE Inac tive FLORANEX ORAL PACKET 1 pack three times daily, for bowel health FLORANEX ORAL PACKET 57073301663 LACTOBACILLUS Inactive IRON 325 (65 Fe) MG ORAL TABLET 1 every other day 2015 IRON 325 (65 Fe) MG ORAL TABLET 328586 FERROUS SULFATE Inactive FLAGYL 500 MG ORAL TABLET 1 pill by mouth three times daily, for diarrhea FLAGYL 500 MG ORAL TABLET 123363 METRONIDAZOLE I nactive BACTRIM DS 800-160 MG ORAL TABLET 1 pill by mouth twice claudio y, for UTI BACTRIM DS 800-160 MG ORAL TABLET 891054 SULFAMETHOXAZOLE-TRIMETHOPRIM Inactive Advance Directives Directive Description Start [...] Name Value Unit Range Description Lab Report: Basic Metabolic Panel, Thyro id Stimulating Hormone (L), Free ... - Chemistry albumin/creatinine ratio, urine <30 mg/g Normal mg/g m g/g{creat} 0-29 sodium, serum 138 mmol/L 798-073 9224/12/15 potassium, serum 4.0 mmol/L 3.5-5.2 chloride, serum 101 mmol/L 98-107 carbon dioxide, venous blood 32.5 mmol/L 21.0-32 .0 blood glucose 80 mg/dL 65-110 calcium, serum 9.1 mg/dL 8.5-10.1 urea nitrogen, blood 23 mg/dL 7-18 creatinine, serum 1.09 mg/dL 0.60-1.30 TSH 1.11 m[iU]/mL 0.36-3.74 thyroxine, serum, free 0.85 ng/dL 0.59-1.17 Lab Report: Basic Metabolic Panel, Thyro id Stimulating Hormone (L), Free ... - Lab microalbumin, urine 10 mg/L 0-19 Lab Report: Calcium - Chemistry calcium, serum 9.1 mg/dL 8.5-10.1 Lab Report: CEA - Serology carcinoembryonic antigen 0.6 ng/mL Lab Report: Comp. Metabolic Panel - Chem istry sodium, serum 142 mmol/L 845-252 1016/04/19 carbon dioxide, venous blood 30.2 mmol/L 21.0-32 [...] - Chelle radha sodium, serum 142 mmol/L 377-073 8355/11/02 potassium, serum 3.4 mmol/L 3.5-5.2 chloride, serum [...] mg/dL Encounters Code Encounter Date Provider Facility CPT-07706 [id number] Vst-Est Level III 14:29:19 CDT Fiorella weston Kevonoliver [facility] CPT-28352 Level 2 Est. Patient 14:58:26 CDT Kylie Lund [facility] CPT-00552 Level 3 Est. Patient 08:15:24 RIGGING ENGINEER Kylie Lund [facility] CPT-78161 Level 2 Est. Patient 14:27:16 RIGGING ENGINEER Kylie Lund [facility] CPT-25075 Level 3 Est. Patient 17:54:48 CDT Kylie Lund [facility] CPT-45342 Level 3 Est. Patient 16:26:30 CDT Kina blackmon [facility] CPT-21381 Level 3 New Patient 16:22:01 RIGGING ENGINEER Adam Yates MD [facility] CPT-75198 Level 4 Est. Patient 17:00:48 CDT Kylie Lund [facility] CPT-85858 Level 3 Est. Patient 13:15:54 CDT Kylie Lund [facility] [place] CPT-12938 Level 3 Est. Patient 09:10:11 CDT Kylie Kevon [facility] [place] CPT-44590 Level 4 Est. Patient 12:08:30 RIGGING ENGINEER Hope cohn MD [facility] CPT-49448 Level 4 Est. Patient 19:08:42 RIGGING ENGINEER Hope cohn MD [facility] CPT-47521 Level 4 Est. Patient 20:04:51 CDT Hope cohn MD [facility] CPT-25633 Level 3 New Patient 01:46:11 RIGGING ENGINEER Hope landers MD [facility] Procedures Code Procedure Name Date Entry Date Standard Desc ription CPT-76527 First Vx - Ix admin for Medicare patients 02/08 10:02:45 CDT CPT-83746 Fluzone Quadrivalent Intramuscular Suspe nsion 0.5 ML 10:02:45 CDT CPT-81975 Magnesium - LAB USE ONLY 09:41:00 CDT 12/09 CPT-18473 Renal Panel - LAB USE ONLY 09:41:00 CDT 201 09/17/01 CPT-90006 Venipuncture Draw Fee 09:41:00 CDT CPT-42296 Calcium - LAB USE ONLY 17:25:11 CDT CPT-J0897 Prolia 60 mg 15:10:59 CDT CPT-94970 Abx/Therapy Injection 15:10:59 CDT CPT-G0439 Subsequent Annual Wellness Exam 14:29:19 CDT CPT-31126 Venipuncture Draw Fee 10:59:04 CDT CPT-88865 CMP - LAB USE ONLY 10:59:04 CDT CPT-47798 CBC with Diff - LAB USE ONLY 10:59:03 CDT 2 CPT-J0897 Prolia 60 mg 15:46:54 RIGGING ENGINEER CPT-93983 Abx/Therapy Injection 15:46:54 RIGGING ENGINEER CPT-88032 Microalbumin - LAB USE ONLY 09:41:32 RIGGING ENGINEER 20 23/01/15 CPT-10133 Free T4 - LAB USE ONLY 09:41:32 RIGGING ENGINEER CPT-29818 TSH - LAB USE ONLY 09:41:32 RIGGING ENGINEER CPT-85211 BMP - LAB USE ONLY 09:41:32 RIGGING ENGINEER CPT-06745 Venipuncture Draw Fee 09:41:32 RIGGING ENGINEER CPT-83827 First Vx - Ix admin for Medicare patients 11:19:30 CDT CPT-53149 Fluzone High-Dose Intramuscular Suspension 12/07 11:19:30 CDT CPT-J0897 Prolia 60 mg 14:55:42 CDT CPT-78028 Abx/Therapy Injection 14:55:42 CDT CPT-64958 Bone Density - XRAY USE ONLY 10:27:12 CDT 2 CPT-G0439 Subsequent Annual Wellness Exam 17:54:53 CDT CPT-58260 Foot, left, comp min 3V - XRAY USE ONLY 12:22:49 CDT CPT-G0009 Administration of Pneumococcal Vaccine 3 12:18:00 CDT CPT-40421 Pneumovax 23 Injection Injectable 25 MCG /0.5ML 12:18:00 CDT CPT-J0897 Prolia 60 mg 14:14:16 RIGGING ENGINEER CPT-33941 Abx/Therapy Injection 14:14:15 RIGGING ENGINEER CPT-14247 Lipid - LAB USE ONLY 10:01:52 RIGGING ENGINEER 2 CPT-40368 Calcium - LAB USE ONLY 10:01:51 RIGGING ENGINEER CPT-76766 Venipuncture Draw Fee 10:01:51 RIGGING ENGINEER CPT-LR Lesion Removal 16:22:01 RIGGING ENGINEER CPT-57391 TSH - LAB USE ONLY 14:26:02 CDT CPT-55883 CMP - LAB USE ONLY 14:26:01 CDT CPT-90218 CBC with Diff - LAB USE ONLY 14:26:01 CDT 2 CPT-90298 Venipuncture Draw Fee 14:26:01 CDT CPT-61439 First Vx - Ix admin for Medicare patients 13:27:08 CDT CPT-19406 Fluzone High-Dose Intramuscular Suspension 11/26 13:27:08 CDT CPT-G0438 Initial Annual Wellness Exam 14:19:57 CD T CPT-G0009 Administration of Pneumococcal Vaccine 9 11:36:25 CDT CPT-92861 Prevnar 13 Intramuscular Suspension 1 1:36:25 CDT CPT-26355 Prevnar 13 Intramuscular Suspension 1 0:40:58 CDT CPT-J0897 Prolia 60 mg 10:37:16 CDT CPT-22220 Abx/Therapy Injection 10:37:16 CDT CPT-J0897 Prolia 60 mg 16:09:34 RIGGING ENGINEER CPT-J0897 Prolia 60 mg 11:10:35 RIGGING ENGINEER CPT-25435 Abx/Therapy Injection 11:10:35 RIGGING ENGINEER CPT-000 Give Appropriate Flu Vaccine 17:01:15 RIGGING ENGINEER 2 CPT-58605 Fluzone High Dose (65+) 15:03:08 RIGGING ENGINEER 02/15 CPT-17676 Immunization Single Admin 15:03:08 RIGGING ENGINEER 2014 CPT-OV Office Visit 15:58:06 CDT CPT-J0897 Prolia 60 mg 08:45:38 CDT CPT-30289 Abx/Therapy Injection 08:45:38 CDT CPT-J3420 Vitamin B12 1000mcg (Cyanocobalamin) 09:26:20 RIGGING ENGINEER CPT-15639 Abx/Therapy Injection 09:26:20 RIGGING ENGINEER CPT-J3420 Vitamin B12 1000mcg (Cyanocobalamin) 09:44:40 RIGGING ENGINEER CPT-13173 Abx/Therapy Injection 09:44:40 RIGGING ENGINEER CPT-J3420 Vitamin B12 1000mcg (Cyanocobalamin) 09:15:54 RIGGING ENGINEER CPT-35801 Abx/Therapy Injection 09:15:54 RIGGING ENGINEER CPT-J3420 Vitamin B12 1000mcg (Cyanocobalamin) 09:46:44 RIGGING ENGINEER CPT-09097 Abx/Therapy Injection 09:46:44 RIGGING ENGINEER CPT-J3420 Vitamin B12 1000mcg (Cyanocobalamin) 09:47:34 RIGGING ENGINEER CPT-85731 Abx/Therapy Injection 09:47:34 RIGGING ENGINEER CPT-J3420 Vitamin B12 1000mcg (Cyanocobalamin) 14:35:50 RIGGING ENGINEER CPT-J3420 Vitamin B12 1000mcg (Cyanocobalamin) 09:25:05 RIGGING ENGINEER CPT-11357 Abx/Therapy Injection 09:25:05 RIGGING ENGINEER CPT-G0008 Administration of Influenza Virus Vaccine 13:36:47 CDT CPT-62611 Fluzone High-Dose Intramuscular Suspension 11/15 13:36:47 CDT CPT-J0897 Prolia 60 mg 08:50:41 CDT CPT-98684 Abx/Therapy Injection 08:50:41 CDT CPT-27974 Bone Density 12:06:12 CDT CPT-74195 Bone Density 08:54:40 CDT CPT-OV Office Visit 15:37:02 CDT CPT-39340 Postop F/U Visit 15:47:49 CDT CPT-46993 Postop F/U Visit 15:21:02 CDT CPT-[facility] Transitional Care Mgmt-High 07:52:27 CDT 20 20/06/01 CPT-62202 Venipuncture Draw Fee 13:51:18 CDT CPT-16203 Venipuncture Draw Fee 10:14:55 RIGGING ENGINEER CPT-99691 Venipuncture Draw Fee 13:39:45 RIGGING ENGINEER CPT-OV Office Visit 15:11:22 RIGGING ENGINEER CPT-13202 Venipuncture Draw Fee 09:20:49 RIGGING ENGINEER CPT-61755 Venipuncture Draw Fee 16:52:15 RIGGING ENGINEER CPT-26771 Venipuncture Draw Fee 10:37:24 RIGGING ENGINEER CPT-85054 Venipuncture Draw Fee 08:21:21 RIGGING ENGINEER CPT-43779 Venipuncture Draw Fee 08:30:20 RIGGING ENGINEER CPT-74636 Venipuncture Draw Fee 14:53:21 RIGGING ENGINEER CPT-61213 Venipuncture Draw Fee 09:40:56 RIGGING ENGINEER CPT-71487 Venipuncture Draw Fee 10:30:47 RIGGING ENGINEER CPT-54942 Venipuncture Draw Fee 10:46:17 RIGGING ENGINEER CPT-68604 Venipuncture Draw Fee 11:12:45 RIGGING ENGINEER CPT-24811 Venipuncture Draw Fee 09:53:33 RIGGING ENGINEER CPT-96627 Venipuncture Draw Fee 11:53:51 RIGGING ENGINEER CPT-22107 Venipuncture Draw Fee 10:33:50 RIGGING ENGINEER CPT-74757 Venipuncture Draw Fee 10:05:01 RIGGING ENGINEER CPT-82885 Venipuncture Draw Fee 14:32:52 RIGGING ENGINEER CPT-30936 Venipuncture Draw Fee 09:46:13 RIGGING ENGINEER CPT-15138 Venipuncture Draw Fee 11:34:27 RIGGING ENGINEER CPT-10306 Venipuncture Draw Fee 13:17:16 RIGGING ENGINEER CPT-50024 Venipuncture Draw Fee 12:05:39 CDT CPT-81880 Venipuncture Draw Fee 12:49:12 CDT CPT-01414 Venipuncture Draw Fee 12:37:18 CDT CPT-90286 Venipuncture Draw Fee 10:57:11 CDT CPT-52685 Venipuncture Draw Fee 13:47:40 CDT CPT-05634 Venipuncture Draw Fee 10:02:17 CDT CPT-10708 TB Tubersol 17:32:32 CDT CPT-OV Office Visit 16:21:53 CDT CPT-OV Office Visit 15:49:22 CDT CPT-OV Office Visit 17:16:31 CDT CPT-OV Office Visit 10:43:31 CDT
--- OUTSIDE RECORDS SUMMARY | 2019-02-09 12:07 | XMS REPORT | Clinical Summary ---
Author Author Renaldo, Florecita Munoz Organization [facility] [employer] Address Unknown Phone Unavailable Allergies, Adverse Reactions, [...] Hyperpotassemia GERD 530.81 Resolved Kylie Yokum [employer] Esophageal reflux Health maintenance exam V70.0 Resolved Adolfo Yates MD Routine general medical examination at a health care facility Anemia 285.9 Resolved Kylie Holt [employer] Anemia, unspecified Personal history of malignant neoplasm of large intestine V10.05 Active Adam Yates MD Personal history of malignant neoplasm of large intestine Hypomagnesemia 275.2 Resolved Kylie Holt [employer] Disorders of magnesium metabolism Weakness 780.79 Resolved [...] unspecified FH Colon Cancer V16.0 Active Adam Delgaod D Family history of malignant neoplasm of [...] cyst, scalp 706.2 Resolved Kylie Yokum [employer] Sebaceous cyst Cervical lymphadenopathy, anterior, left 785.6 Resolv ed Kylie Yokum [employer] Enlargement of lymph nodes Need for prophylactic vaccination and inoculation against in fluenza V04.81 Resolved Adam Yates MD Need for prophylactic vaccination and inoculation against influenza Preventive health care V70.0 Resolved Kylie Escalonaku m [employer] Routine general medical examination at a health care facility Thyroid nodule, left 241.0 Active Kylie Yokum A PRN Nontoxic uninodular goiter Screening mammogram V76.12 Resolved Kylie Yokum A PRN Other screening mammogram Mandy 706.2 Resolved Kylie Yokum [employer] Sebaceous cyst Colon cancer, ascending 153.6 Resolved Kylie Yok um [employer] Malignant neoplasm of ascending colon Foot pain, left 729.5 Resolved Kylie Yokum [employer] Pain in limb Splinter 919.6 Resolved Kylie Yokum [employer] Superficial foreign body (splinter) of other, multiple, and unspecified sites, without major open wound and without mention of infection Rash 782.1 Resolved Kylie Yokum [employer] Rash and other nonspecific skin eruption Cyst 706.2 Resolved Kylie Yokum [employer] Sebaceous cyst Body Mass Index 23.0-23.9 Adult Active Kylie Yokum [employer] Body Mass Index between 19-24, adult Unspecified fall, initial encounter E888.9 Inactive Kylie Holt [employer] Unspecified fall Eye pain, left 379.91 Inactive [...] LOWER QUADRANT ICD-789.03 Inactive Kina Joshua [employer] ADENOCARCINOMA, COLON, 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 Dick Yates MD ABDOMINAL PAIN, GENERALIZED ICD-789.07 Inactive Hope Benavidez MD PhD FEVER UNSPECIFIED ICD-780.60 Inactive Hope cohn MD PhD UNSPECIFIED VENOUS INSUFFICIENCY ICD-459.81 Elda ctive Adam Yates MD ADENOCARCINOMA, 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 Inac tive Hope Benavidez MD PhD Hyperkalemia ICD-276.7 Inactive Hope Benavidez MD PhD GERD ICD-530.81 Inactive Kylie Holt [employer] 2015 Health maintenance exam ICD-V70.0 Bam Yates MD Anemia ICD-285.9 Inactive Kylie Holt [employer] 07/24 Hypomagnesemia ICD-275.2 Inactive Kylie Yokum [employer] Weakness ICD-780.79 Inactive Hope Benavidez MD P hD Aftercare following surgery of the teeth,oral cavity a nd digestive system, NEC ICD-V58.75 Inactive Adam Yates MD Colon cancer ICD-153.9 Inactive Adam luna MD Asymptomatic postmenopausal status (age-related) (natural) I CD-V49.81 Inactive Hpoe Benavidez MD PhD Diarrhea, functional ICD-564.5 Inactive Selena Yates MD Dysuria ICD-788.1 Inactive Hope Benavidez MD PhD 201 05/19/01 Adenocarcinoma, ascending colon ICD-153.6 Inac tive Adam Yates MD Sebaceous cyst, scalp ICD-706.2 Inactive Tracy hi Yokum [employer] Cervical lymphadenopathy, anterior, left ICD-785.6 Inactive Kylie Yokum [employer] Need for prophylactic vaccination and inoculation against in fluenza ICD-V04.81 Inactive Adam Yates MD Preventive health care ICD-V70.0 Inactive Ka thi Yokum [employer] Screening mammogram ICD-V76.12 Inactive Kylie Yokum [employer] Mandy ICD-706.2 Inactive Kylie Yokum [employer] 07/20 Colon cancer, ascending ICD-153.6 Inactive K athi Yokum [employer] Foot pain, left ICD-729.5 Inactive Kylie Holt [employer] Splinter ICD-919.6 Inactive Kylie Holt [employer] 2017 Rash ICD-782.1 Inactive Kylie Holt [employer] 07/25 Cyst ICD-706.2 Inactive Kylie Holt [employer] 08/11 Unspecified fall, initial encounter ICD-E888.9 Inactive Kylie Holt [employer] Eye pain, left ICD-379.91 Inactive Kylie Holt APRN Medication List Medication Instructions Start Date Stop Date Generic Name NDC Status Provider Patient Instruction IMODIUM A-D 2 MG ORAL TABLET 1 tablet twice a day LOPERAMIDE HCL 46577374436 Active Kylie Holt APRN Active VOLTAREN 1 % TRANSDERMAL GEL apply q 6-8 hour to left arm as needed for pain DICLOFENAC SODIUM 06853973821 Active Kylie Holt APRN Active COQ10 100 MG ORAL CAPSULE 1 daily COENZYME Q10 204208 45143 Active LETY Nation Active VITAMIN D3 2000 UNIT ORAL CAPSULE Melaleuca-One daily CHOLECALCIFEROL 26825921278 Active Kylie Holt APRN Active PROBIOTIC DAILY ORAL CAPSULE Take one daily PROBIO TIC PRODUCT 55801738717 Active Kylie Holt APRN Active IRON 325 (65 Fe) MG ORAL TABLET 1 every other day FERROUS SULFATE 93025982195 No Longer Active Kylie Holt APRN Active FLORANEX ORAL PACKET 1 pack three times daily, for bowel health LACTOBACILLUS 39355963073 No Longer Active Kylie Holt APRN Active LOMOTIL 2.5-0.025 MG ORAL TABLET 1 tab by mouth prn 20 23/10/23 DIPHENOXYLATE-ATROPINE 09033646569 No Longer Active Kylie Yokum [employer] Active MAGNESIUM GLUCONATE 250 MG ORAL TABLET 1 tab tid 23/10/23 MAGNESIUM GLUCONATE 56027582434 No Longer Active Kylie Lundum [employer] Active CYANOCOBALAMIN 1000 MCG/ML INJECTION SOLUTION 1 injection ev ruben 2 weeks CYANOCOBALAMIN 78419185951 No Longer Active Kylie Lund um [employer] Active ATENOLOL 25 MG ORAL TABLET 1/2 pill by mouth daily, fo r headaches, blood pressure ATENOLOL 87553870307 Active Kylie Yokum [employer] Active PROPRANOLOL HCL 80 MG ORAL TABLET 1 tab tue. and thur. PROPRANOLOL HCL 73367517034 No Longer Active Hope Benavidez MD PhD A ctive VITAMIN D3 4000 IU 1 tab 3 times daily VITAMIN D3 4000 IU No Longer Active Hope Benavidez MD PhD Active BACTRIM DS 800-160 MG ORAL TABLET 1 pill by mouth twice claudio y, for UTI SULFAMETHOXAZOLE-TRIMETHOPRIM 72384207754 No Longer Active Hope Benavidez MD PhD Active PROLIA 60 MG/ML SUBCUTANEOUS SOLUTION 1 shot every 6 months for osteoprosis DENOSUMAB 34754206064 Active Hope Benavidez MD PhD Active CALCIUM + D + K 750-500-40 MG-UNT-MCG ORAL TABLET 1 tab by [facility] twice daily CALCIUM-VITAMIN D-VITAMIN K 97751775064 Active Hope valdez MD PhD Active DAILY VALUE MULTIVITAMIN ORAL TABLET 1 tab by mouth twice daily 201 05/16/14 MULTIPLE VITAMIN 70177359959 Active Hope Benavidez MD PhD Acti ve FISH OIL 306 MG CAPS 1 tab by mouth three times daily OMEGA-3 FATTY ACIDS 89088685331 Active Hope Benavidez MD PhD Active LUTEIN 10 MG ORAL TABLET 1 tab daily LUTEIN 75562106 408 Active Hope Benavidez MD PhD Active TRIAMTERENE-HCTZ 37.5-25 MG ORAL TABLET 1 tab by mouth daily 10/22 TRIAMTERENE-HCTZ 56341428721 Active Kylie Lundum [employer] Active CYCLOBENZAPRINE HCL 10 MG ORAL TABLET 1 tablet by mout three times daily as needed for headaches CYCLOBENZAPRINE HCL 59621289113 No Longer Active Adam Yates MD Active OMEPRAZOLE 20 MG ORAL CAPSULE DELAYED RELEASE 1 tablet by mo [facility] daily for GERD OMEPRAZOLE 74507837841 No Longer Active Adam Yates MD Active ZOFRAN 8 MG ORAL TABLET 1 tab by mouth every 12 hours prn 4 ONDANSETRON HCL 76820323609 No Longer Active Adam Yates MD Active PHENADOZ 25 MG RECTAL SUPPOSITORY 1 every 4 hrs. PRN 2 PROMETHAZINE HCL 62681286172 No Longer Active Adam Yates MD A ctive POTASSIUM CHLORIDE 20 MEQ ORAL PACKET by mouth twice a day prn 2 POTASSIUM CHLORIDE 93074789014 No Longer Active Adam Carpenter MD Active PROMETHAZINE HCL 25 MG ORAL TABLET 1 Q. 4 hr. PRN PROMETHAZINE HCL 30376708436 No Longer Active Adam Yates MD Active INNOPRAN XL 120 MG ORAL CAPSULE EXTENDED RELEASE 24 HO UR Take one by mouth daily PROPRANOLOL HCL SR BEADS 84899706997 No Longer Active Adam Yates MD Active FLAGYL 500 MG ORAL TABLET 1 pill by mouth three times daily, for diarrhea METRONIDAZOLE 14526559843 No Longer Active Hope landers MD PhD Active DYAZIDE 37.5-25 MG ORAL CAPSULE 1 qd TRIA MTERENE-HCTZ 29752527847 No Longer Active Hope Benavidez MD PhD Active PROZAC 20 MG ORAL CAPSULE 1 q d FLUOXETINE HCL 48309305714 No Longer Active Hope Benavidez MD PhD Active SIMVASTATIN 40 MG ORAL TABLET 1 qd SIMVAS TATIN 10626711052 No Longer Active Adam Yates MD Active MELOXICAM 15 MG ORAL TABLET 1 qd MELOXICAM 54435734292 No Longer Active Adam Yates MD Active EXCEDRIN EXTRA STRENGTH 250-250-65 MG ORAL TABLET 1-2 q6h VT N headache [id number] 55809644852 Active Hope Benavidez MD PhD Active FLAGYL 500 MG ORAL TABLET 1 qid METRONIDAZOL E 03803625876 No Longer Active Adam Yates MD Active LEVAQUIN 750 MG ORAL TABLET 1 qd LEVOFLOXAC IN 47589040905 No Longer Active Adam Yates MD Active ADULT ASPIRIN LOW STRENGTH 81 MG ORAL TABLET DISINTEGRATING 1 qd ASPIRIN 00337411422 Active Hope Benavidez MD PhD Active LEVAQUIN 750 MG ORAL TABLET 1 qd LEVAQUIN 750 MG ORAL TABLET 709182 LEVOFLOXACIN Inactive FLAGYL 500 MG ORAL TABLET 1 qid FLAGYL 500 MG ORAL TABLET 793464 METRONIDAZOLE Inactive MELOXICAM 15 MG ORAL TABLET 1 qd MELOXICAM 15 MG ORAL TABLET 863418 MELOXICAM Inactive SIMVASTATIN 40 MG ORAL TABLET 1 qd SIMVASTATIN 40 MG ORAL TABLET 077146 SIMVASTATIN Inactive PROZAC 20 MG ORAL CAPSULE 1 q d PROZAC 20 MG ORAL CAPSULE 083085 FLUOXETINE HCL Inactive DYAZIDE 37.5-25 MG ORAL CAPSULE 1 qd 5 DYAZIDE 37.5-25 MG ORAL CAPSULE 077639 TRIAMTERENE-HCTZ Inactive INNOPRAN XL 120 MG ORAL CAPSULE EXTENDED RELEASE 24 HO UR Take one by mouth daily INNOPRAN XL 120 MG ORAL CAPSULE EXTENDED RELEASE 24 HOUR PROPRANOLOL HCL SR BEADS Inactive PROMETHAZINE HCL 25 MG ORAL TABLET 1 Q. 4 hr. PRN 2013 PROMETHAZINE HCL 25 MG ORAL TABLET 335536 PROMETHAZINE HCL Inactive POTASSIUM CHLORIDE 20 MEQ ORAL PACKET by mouth twice a day prn 2 POTASSIUM CHLORIDE 20 MEQ ORAL PACKET 2476400 POTASSIUM CHLORIDE Inactive PHENADOZ 25 MG RECTAL SUPPOSITORY 1 every 4 hrs. PRN 2 PHENADOZ 25 MG RECTAL SUPPOSITORY 383299 PROMETHAZINE HCL Inactive ZOFRAN 8 MG ORAL TABLET 1 tab by mouth every 12 hours prn 4 ZOFRAN 8 MG ORAL TABLET 204793 ONDANSETRON HCL Inactive OMEPRAZOLE 20 MG ORAL CAPSULE DELAYED RELEASE 1 tablet by mo uth daily for GERD OMEPRAZOLE 20 MG ORAL CAPSULE DELAYED RELEASE 19 8051 OMEPRAZOLE Inactive CYCLOBENZAPRINE HCL 10 MG ORAL TABLET 1 tablet by mout h three times daily as needed for headaches CYCLOBENZAPRINE HCL 10 MG ORAL TABLET 200969 CYCLOBENZAPRINE HCL Inactive VITAMIN D3 4000 IU 1 tab 3 times daily VITAMIN D3 4000 IU Inactive PROPRANOLOL HCL 80 MG ORAL TABLET 1 tab tue. and thur. PROPRANOLOL HCL 80 MG ORAL TABLET 251828 PROPRANOLOL HCL Inacti ve CYANOCOBALAMIN 1000 MCG/ML INJECTION SOLUTION 1 injection ev ruben 2 weeks CYANOCOBALAMIN 1000 MCG/ML INJECTION SOLUTION 30 9594 CYANOCOBALAMIN Inactive MAGNESIUM GLUCONATE 250 MG ORAL TABLET 1 tab tid 23/10/23 MAGNESIUM GLUCONATE 250 MG ORAL TABLET 094094 MAGNESIUM GLUCONATE Inactive LOMOTIL 2.5-0.025 MG ORAL TABLET 1 tab by mouth prn 20 23/10/23 LOMOTIL 2.5-0.025 MG ORAL TABLET 0251859 DIPHENOXYLATE-ATROPINE Inac tive FLORANEX ORAL PACKET 1 pack three times daily, for bowel health FLORANEX ORAL PACKET 21288394297 LACTOBACILLUS Inactive IRON 325 (65 Fe) MG ORAL TABLET 1 every other day 2015 IRON 325 (65 Fe) MG ORAL TABLET 453107 FERROUS SULFATE Inactive FLAGYL 500 MG ORAL TABLET 1 pill by mouth three times daily, for diarrhea FLAGYL 500 MG ORAL TABLET 087995 METRONIDAZOLE I nactive BACTRIM DS 800-160 MG ORAL TABLET 1 pill by mouth twice claudio y, for UTI BACTRIM DS 800-160 MG ORAL TABLET 325949 SULFAMETHOXAZOLE-TRIMETHOPRIM Inactive Advance Directives Directive Description Start [...] weight E&M 133.31 [lb_av] Weight Measure d blood pressure, diastolic 49 mm[Hg] BP dobson blood pressure, systolic 130 mm[Hg] BP sys height E&M 63 [in_us] Bdy height pulse rate E&M 60 /min Heart rate temperature E&M 97.9 [degF] Body temp erature weight E&M 131 [lb_av] Weight Measure d Diagnostic Results Date Name Value Unit Range Description Lab Report: Basic Metabolic Panel, Thyro id Stimulating Hormone (L), Free ... - Chemistry albumin/creatinine ratio, urine <30 mg/g Normal mg/g m g/g{creat} 0-29 sodium, serum 138 mmol/L 993-697 2626/12/15 potassium, serum 4.0 mmol/L 3.5-5.2 chloride, serum [...] - Chem istry sodium, serum 142 mmol/L 839-599 3610/04/19 carbon dioxide, venous blood 30.2 mmol/L 21.0-32 [...] - Chelle radha sodium, serum 142 mmol/L 228-790 7525/11/02 potassium, serum 3.4 mmol/L 3.5-5.2 chloride, serum [...] mg/dL Encounters Code Encounter Date Provider Facility CPT-44419 [id number] Vst-Est Level III 14:29:19 CDT Fiorella Holt [facility] CPT-18146 Level 2 Est. Patient 14:58:26 CDT Kylie boyd [facility] CPT-50006 Level 3 Est. Patient 08:15:24 FINANCIAL INSTITUTION PRESIDENT Kylie boyd [facility] CPT-35144 Level 2 Est. Patient 14:27:16 FINANCIAL INSTITUTION PRESIDENT Kylie boyd [facility] CPT-35648 Level 3 Est. Patient 17:54:48 CDT Kylie boyd [facility] CPT-47019 Level 3 Est. Patient 16:26:30 CDT Kina blackmon [facility] CPT-51586 Level 3 New Patient 16:22:01 FINANCIAL INSTITUTION PRESIDENT Adam Yates MD [facility] CPT-12040 Level 4 Est. Patient 17:00:48 CDT Kylie boyd [facility] CPT-61780 Level 3 Est. Patient 13:15:54 CDT Kylie boyd [facility] CPT-97775 Level 3 Est. Patient 09:10:11 CDT Kylie boyd [facility] CPT-09185 Level 4 Est. Patient 12:08:30 FINANCIAL INSTITUTION PRESIDENT Hope cohn MD [facility] CPT-92628 Level 4 Est. Patient 19:08:42 FINANCIAL INSTITUTION PRESIDENT Hope cohn MD [facility] CPT-04365 Level 4 Est. Patient 20:04:51 CDT Hope cohn MD [facility] CPT-43804 Level 3 New Patient 01:46:11 FINANCIAL INSTITUTION PRESIDENT Hope landers MD PhD [facility] Procedures Code Procedure Name Date Entry Date Standard Desc ription CPT-20344 First Vx - Ix admin for Medicare patients 02/08 10:02:45 CDT CPT-84849 Fluzone Quadrivalent Intramuscular Suspe nsion 0.5 ML 10:02:45 CDT CPT-67538 Magnesium - LAB USE ONLY 09:41:00 CDT 12/09 CPT-15930 Renal Panel - LAB USE ONLY 09:41:00 CDT 201 09/17/01 CPT-54199 Venipuncture Draw Fee 09:41:00 CDT CPT-84782 Calcium - LAB USE ONLY 17:25:11 CDT CPT-J0897 Prolia 60 mg 15:10:59 CDT CPT-51384 Abx/Therapy Injection 15:10:59 CDT CPT-G0439 Subsequent Annual Wellness Exam 14:29:19 CDT CPT-62568 Venipuncture Draw Fee 10:59:04 CDT CPT-97463 CMP - LAB USE ONLY 10:59:04 CDT CPT-66698 CBC with Diff - LAB USE ONLY 10:59:03 CDT 2 CPT-J0897 Prolia 60 mg 15:46:54 FINANCIAL INSTITUTION PRESIDENT CPT-98388 Abx/Therapy Injection 15:46:54 FINANCIAL INSTITUTION PRESIDENT CPT-74027 Microalbumin - LAB USE ONLY 09:41:32 FINANCIAL INSTITUTION PRESIDENT 20 23/01/15 CPT-77795 Free T4 - LAB USE ONLY 09:41:32 FINANCIAL INSTITUTION PRESIDENT CPT-97121 TSH - LAB USE ONLY 09:41:32 FINANCIAL INSTITUTION PRESIDENT CPT-42791 BMP - LAB USE ONLY 09:41:32 FINANCIAL INSTITUTION PRESIDENT CPT-64338 Venipuncture Draw Fee 09:41:32 FINANCIAL INSTITUTION PRESIDENT CPT-10776 First Vx - Ix admin for Medicare patients 11:19:30 CDT CPT-23242 Fluzone High-Dose Intramuscular Suspension 12/07 11:19:30 CDT CPT-J0897 Prolia 60 mg 14:55:42 CDT CPT-36865 Abx/Therapy Injection 14:55:42 CDT CPT-34309 Bone Density - XRAY USE ONLY 10:27:12 CDT 2 CPT-G0439 MC Subsequent Annual Wellness Exam 17:54:53 CDT CPT-15319 Foot, left, comp min 3V - XRAY USE ONLY 12:22:49 CDT CPT-G0009 Administration of Pneumococcal Vaccine 3 12:18:00 CDT CPT-19710 Pneumovax 23 Injection Injectable 25 MCG /0.5ML 12:18:00 CDT CPT-J0897 Prolia 60 mg 14:14:16 FINANCIAL INSTITUTION PRESIDENT CPT-59741 Abx/Therapy Injection 14:14:15 FINANCIAL INSTITUTION PRESIDENT CPT-98808 Lipid - LAB USE ONLY 10:01:52 FINANCIAL INSTITUTION PRESIDENT 2 CPT-93168 Calcium - LAB USE ONLY 10:01:51 FINANCIAL INSTITUTION PRESIDENT CPT-17169 Venipuncture Draw Fee 10:01:51 FINANCIAL INSTITUTION PRESIDENT CPT-LR Lesion Removal 16:22:01 FINANCIAL INSTITUTION PRESIDENT CPT-78048 TSH - LAB USE ONLY 14:26:02 CDT CPT-70225 CMP - LAB USE ONLY 14:26:01 CDT CPT-81143 CBC with Diff - LAB USE ONLY 14:26:01 CDT 2 CPT-31838 Venipuncture Draw Fee 14:26:01 CDT CPT-55810 First Vx - Ix admin for Medicare patients 13:27:08 CDT CPT-54731 Fluzone High-Dose Intramuscular Suspension 11/26 13:27:08 CDT CPT-G0438 Initial Annual Wellness Exam 14:19:57 CD T CPT-G0009 Administration of Pneumococcal Vaccine 9 11:36:25 CDT CPT-53422 Prevnar 13 Intramuscular Suspension 1 1:36:25 CDT CPT-79935 Prevnar 13 Intramuscular Suspension 1 0:40:58 CDT CPT-J0897 Prolia 60 mg 10:37:16 CDT CPT-58866 Abx/Therapy Injection 10:37:16 CDT CPT-J0897 Prolia 60 mg 16:09:34 FINANCIAL INSTITUTION PRESIDENT CPT-J0897 Prolia 60 mg 11:10:35 FINANCIAL INSTITUTION PRESIDENT CPT-87445 Abx/Therapy Injection 11:10:35 FINANCIAL INSTITUTION PRESIDENT CPT-000 Give Appropriate Flu Vaccine 17:01:15 FINANCIAL INSTITUTION PRESIDENT 2 CPT-53899 Fluzone High Dose (65+) 15:03:08 FINANCIAL INSTITUTION PRESIDENT 02/15 CPT-72141 Immunization Single Admin 15:03:08 FINANCIAL INSTITUTION PRESIDENT 2014 CPT-OV Office Visit 15:58:06 CDT CPT-J0897 Prolia 60 mg 08:45:38 CDT CPT-75619 Abx/Therapy Injection 08:45:38 CDT CPT-J3420 Vitamin B12 1000mcg (Cyanocobalamin) 09:26:20 FINANCIAL INSTITUTION PRESIDENT CPT-57403 Abx/Therapy Injection 09:26:20 FINANCIAL INSTITUTION PRESIDENT CPT-J3420 Vitamin B12 1000mcg (Cyanocobalamin) 09:44:40 FINANCIAL INSTITUTION PRESIDENT CPT-14057 Abx/Therapy Injection 09:44:40 FINANCIAL INSTITUTION PRESIDENT CPT-J3420 Vitamin B12 1000mcg (Cyanocobalamin) 09:15:54 FINANCIAL INSTITUTION PRESIDENT CPT-39725 Abx/Therapy Injection 09:15:54 FINANCIAL INSTITUTION PRESIDENT CPT-J3420 Vitamin B12 1000mcg (Cyanocobalamin) 09:46:44 FINANCIAL INSTITUTION PRESIDENT CPT-71793 Abx/Therapy Injection 09:46:44 FINANCIAL INSTITUTION PRESIDENT CPT-J3420 Vitamin B12 1000mcg (Cyanocobalamin) 09:47:34 FINANCIAL INSTITUTION PRESIDENT CPT-56724 Abx/Therapy Injection 09:47:34 FINANCIAL INSTITUTION PRESIDENT CPT-J3420 Vitamin B12 1000mcg (Cyanocobalamin) 14:35:50 FINANCIAL INSTITUTION PRESIDENT CPT-J3420 Vitamin B12 1000mcg (Cyanocobalamin) 09:25:05 FINANCIAL INSTITUTION PRESIDENT CPT-38545 Abx/Therapy Injection 09:25:05 FINANCIAL INSTITUTION PRESIDENT CPT-G0008 Administration of Influenza Virus Vaccine 13:36:47 CDT CPT-37516 Fluzone High-Dose Intramuscular Suspension 11/15 13:36:47 CDT CPT-J0897 Prolia 60 mg 08:50:41 CDT CPT-03825 Abx/Therapy Injection 08:50:41 CDT CPT-56877 Bone Density 12:06:12 CDT CPT-29802 Bone Density 08:54:40 CDT CPT-OV Office Visit 15:37:02 CDT CPT-10518 Postop F/U Visit 15:47:49 CDT CPT-65976 Postop F/U Visit 15:21:02 CDT CPT-TCMH Transitional Care Mgmt-High 07:52:27 CDT 20 20/06/01 CPT-67595 Venipuncture Draw Fee 13:51:18 CDT CPT-24682 Venipuncture Draw Fee 10:14:55 FINANCIAL INSTITUTION PRESIDENT CPT-39054 Venipuncture Draw Fee 13:39:45 FINANCIAL INSTITUTION PRESIDENT CPT-OV Office Visit 15:11:22 FINANCIAL INSTITUTION PRESIDENT CPT-54317 Venipuncture Draw Fee 09:20:49 FINANCIAL INSTITUTION PRESIDENT CPT-19528 Venipuncture Draw Fee 16:52:15 FINANCIAL INSTITUTION PRESIDENT CPT-39426 Venipuncture Draw Fee 10:37:24 FINANCIAL INSTITUTION PRESIDENT CPT-54045 Venipuncture Draw Fee 08:21:21 FINANCIAL INSTITUTION PRESIDENT CPT-99732 Venipuncture Draw Fee 08:30:20 FINANCIAL INSTITUTION PRESIDENT CPT-13462 Venipuncture Draw Fee 14:53:21 FINANCIAL INSTITUTION PRESIDENT CPT-22120 Venipuncture Draw Fee 09:40:56 FINANCIAL INSTITUTION PRESIDENT CPT-35638 Venipuncture Draw Fee 10:30:47 FINANCIAL INSTITUTION PRESIDENT CPT-27345 Venipuncture Draw Fee 10:46:17 FINANCIAL INSTITUTION PRESIDENT CPT-98311 Venipuncture Draw Fee 11:12:45 FINANCIAL INSTITUTION PRESIDENT CPT-09321 Venipuncture Draw Fee 09:53:33 FINANCIAL INSTITUTION PRESIDENT CPT-13778 Venipuncture Draw Fee 11:53:51 FINANCIAL INSTITUTION PRESIDENT CPT-49349 Venipuncture Draw Fee 10:33:50 FINANCIAL INSTITUTION PRESIDENT CPT-91609 Venipuncture Draw Fee 10:05:01 FINANCIAL INSTITUTION PRESIDENT CPT-65696 Venipuncture Draw Fee 14:32:52 FINANCIAL INSTITUTION PRESIDENT CPT-15696 Venipuncture Draw Fee 09:46:13 FINANCIAL INSTITUTION PRESIDENT CPT-44568 Venipuncture Draw Fee 11:34:27 FINANCIAL INSTITUTION PRESIDENT CPT-69098 Venipuncture Draw Fee 13:17:16 FINANCIAL INSTITUTION PRESIDENT CPT-15693 Venipuncture Draw Fee 12:05:39 CDT CPT-63307 Venipuncture Draw Fee 12:49:12 CDT CPT-49973 Venipuncture Draw Fee 12:37:18 CDT CPT-70760 Venipuncture Draw Fee 10:57:11 CDT CPT-88063 Venipuncture Draw Fee 13:47:40 CDT CPT-95710 Venipuncture Draw Fee 10:02:17 CDT CPT-58710 TB Tubersol 17:32:32 CDT CPT-OV Office Visit 16:21:53 CDT CPT-OV Office Visit 15:49:22 CDT CPT-OV Office Visit 17:16:31 CDT CPT-OV Office Visit 10:43:31 CDT
--- OUTSIDE RECORDS SUMMARY | 2019-02-09 12:08 | XMS REPORT | Clinical Summary ---
Author Author Admin, Florecita Munoz Organization [facility] [address] Address Unknown Phone Unavailable Allergies, Adverse Reactions, [...] VENOUS INSUFFICIENCY 459.81 Resolved 201 05/09/09 Adam Ytaes MD Venous (peripheral) insufficiency, unspe cified CARCINOMA [...] Sebaceous cyst, scalp 706.2 Resolved Kylie Yokum SASH ASSEMBLER Sebaceous cyst Cervical lymphadenopathy, anterior, left 785.6 Resolv ed Kylie Yokum SASH ASSEMBLER Enlargement of lymph nodes Need for prophylactic vaccination and inoculation against in fluenza V04.81 Resolved Adam Yates MD Need for prophylactic vaccination and inoculation against influenza Preventive health care V70.0 Resolved Kylie Yoku m SASH ASSEMBLER Routine general medical examination at a health care facility Thyroid nodule, left 241.0 Active Kylie Yokum A PRN Nontoxic uninodular goiter Screening mammogram V76.12 Resolved Kylie Yokum A PRN Other screening mammogram Mandy 706.2 Resolved Kylie Yokum SASH ASSEMBLER Sebaceous cyst Colon cancer, ascending 153.6 Resolved Kylie Yok um SASH ASSEMBLER Malignant neoplasm of ascending colon Foot pain, left 729.5 Resolved Kylie Yokum SASH ASSEMBLER Pain in limb Splinter 919.6 Resolved Kylie Yokum SASH ASSEMBLER Superficial foreign body (splinter) of other, multiple, and unspecified sites, without major open wound and without mention of infection Rash 782.1 Resolved Kylie Yokum SASH ASSEMBLER Rash and other nonspecific skin eruption Cyst 706.2 Resolved Kylie Yokum SASH ASSEMBLER Sebaceous cyst Body Mass Index 23.0-23.9 Adult Active Kylie Yokum SASH ASSEMBLER Body Mass Index between 19-24, adult Unspecified fall, initial encounter E888.9 Inactive Kylie Holt SASH ASSEMBLER Unspecified fall Eye pain, left 379.91 Inactive Kylie Holt SASH ASSEMBLER Pain in or around eye Pharyngitis, acute 074.0 Active Kylie Holt APR N Herpangina Chronic kidney disease stage 2 585.2 Active Rosemarie Gresham RN Chronic kidney disease, Stage II (mild) Hypomagnesemia 275.2 Active Rosemarie Gresham RN Disorders of magnesium metabolism Hypokalemia 276.8 Active Rosemarie Gresham RN Hypopotassemia ABDOMINAL PAIN, RIGHT LOWER QUADRANT ICD-789.03 Inactive Kina Joshua SASH ASSEMBLER ADENOCARCINOMA, COLON, 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 Dick Yates MD ABDOMINAL PAIN, GENERALIZED ICD-789.07 Inactive Hope Benavidez MD PhD FEVER UNSPECIFIED ICD-780.60 Inactive Hope cohn MD PhD UNSPECIFIED VENOUS INSUFFICIENCY ICD-459.81 [place] ctive Adam Yates MD ADENOCARCINOMA, 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 Inac tive Hope Benavidez MD PhD Hyperkalemia ICD-276.7 Inactive Hope Benavidez MD PhD GERD ICD-530.81 Inactive Kylie Holt SASH ASSEMBLER 2015 Health maintenance exam ICD-V70.0 Bam Yates MD Anemia ICD-285.9 Inactive Kylie Holt SASH ASSEMBLER 07/24 Hypomagnesemia ICD-275.2 Inactive Kylie Yokum SASH ASSEMBLER Weakness ICD-780.79 Inactive Hope Benavidez MD P [...] cyst, scalp ICD-706.2 Inactive Tracy hi Yokum SASH ASSEMBLER Cervical lymphadenopathy, anterior, left ICD-785.6 Inactive Kylie Yokum SASH ASSEMBLER Need for prophylactic vaccination and inoculation against in fluenza ICD-V04.81 Inactive Adam Yates MD Preventive health care ICD-V70.0 Inactive Ka thi Yokum SASH ASSEMBLER Screening mammogram ICD-V76.12 Inactive Kylie Yokum SASH ASSEMBLER Mandy ICD-706.2 Inactive Kylie Yokum SASH ASSEMBLER 07/20 Colon cancer, ascending ICD-153.6 Inactive K athi Yokum SASH ASSEMBLER Foot pain, left ICD-729.5 Inactive Kylie Holt SASH ASSEMBLER Splinter ICD-919.6 Inactive Kylie Holt SASH ASSEMBLER 2017 Rash ICD-782.1 Inactive Kylie Holt SASH ASSEMBLER 07/25 Cyst ICD-706.2 Inactive Kylie Holt SASH ASSEMBLER 08/11 Unspecified fall, initial encounter ICD-E888.9 Inactive Kylie Holt SASH ASSEMBLER Eye pain, left ICD-379.91 Inactive Kylie Holt SASH ASSEMBLER Medication List Medication Instructions Start Date Stop Date Generic Name NDC Status Provider Patient Instruction IMODIUM A-D 2 MG ORAL TABLET 1 tablet twice a day LOPERAMIDE HCL 94136294314 Active Kylie Holt APRN Active VOLTAREN 1 % TRANSDERMAL GEL apply q 6-8 hour to left arm as needed for pain DICLOFENAC SODIUM 39107717407 Active Kylie Holt APRN Active COQ10 100 MG ORAL CAPSULE 1 daily COENZYME Q10 994983 29600 Active LETY Nation Active VITAMIN D3 2000 UNIT ORAL CAPSULE Melaleuca-One daily CHOLECALCIFEROL 09231915202 Active Kylie Holt APRN Active PROBIOTIC DAILY ORAL CAPSULE Take one daily PROBIO TIC PRODUCT 58089595951 Active Kylie Holt APRN Active IRON 325 (65 Fe) MG ORAL TABLET 1 every other day FERROUS SULFATE 09930242586 No Longer Active Kylie Holt APRN Active FLORANEX ORAL PACKET 1 pack three times daily, for bowel health LACTOBACILLUS 83868666523 No Longer Active Kylie Holt APRN Active LOMOTIL 2.5-0.025 MG ORAL TABLET 1 tab by mouth prn 20 23/10/23 DIPHENOXYLATE-ATROPINE 91868041726 No Longer Active Kylie Yokum SASH ASSEMBLER Active MAGNESIUM GLUCONATE 250 MG ORAL TABLET 1 tab tid 23/10/23 MAGNESIUM GLUCONATE 84375137285 No Longer Active Kylie Lundum SASH ASSEMBLER Active CYANOCOBALAMIN 1000 MCG/ML INJECTION SOLUTION 1 injection ev ruben 2 weeks CYANOCOBALAMIN 93941921012 No Longer Active Kylie Yok um SASH ASSEMBLER Active ATENOLOL 25 MG ORAL TABLET 1/2 pill by mouth daily, fo r headaches, blood pressure ATENOLOL 55648726984 Active Kylie Yokum SASH ASSEMBLER Active PROPRANOLOL HCL 80 MG ORAL TABLET 1 tab tue. and thur. PROPRANOLOL HCL 99389525249 No Longer Active Hope Benavidez MD PhD A ctive VITAMIN D3 4000 IU 1 tab 3 times daily VITAMIN D3 4000 IU No Longer Active Hope Benavidez MD PhD Active BACTRIM DS 800-160 MG ORAL TABLET 1 pill by mouth twice claudio y, for UTI SULFAMETHOXAZOLE-TRIMETHOPRIM 64795302140 No Longer Active Hope Benavidez MD PhD Active PROLIA 60 MG/ML SUBCUTANEOUS SOLUTION 1 shot every 6 months for osteoprosis DENOSUMAB 68665784319 Active Hope Benavidez MD PhD Active CALCIUM + D + K 750-500-40 MG-UNT-MCG ORAL TABLET 1 tab by m out twice daily CALCIUM-VITAMIN D-VITAMIN K 04646605344 Active Hope valdez MD PhD Active DAILY VALUE MULTIVITAMIN ORAL TABLET 1 tab by mouth twice daily 201 05/16/14 MULTIPLE VITAMIN 59079376110 Active Hope Benavidez MD PhD Acti ve FISH OIL 306 MG CAPS 1 tab by mouth three times daily OMEGA-3 FATTY ACIDS 58266543233 Active Hope Benavidez MD PhD Active LUTEIN 10 MG ORAL TABLET 1 tab daily LUTEIN 46319877 408 Active Hope Benavidez MD PhD Active TRIAMTERENE-HCTZ 37.5-25 MG ORAL TABLET 1 tab by mouth daily 10/22 TRIAMTERENE-HCTZ 48381200843 Active Kylie Lundum SASH ASSEMBLER Active CYCLOBENZAPRINE HCL 10 MG ORAL TABLET 1 tablet by mout three times daily as needed for headaches CYCLOBENZAPRINE HCL 35519454505 No Longer Active Adam Yates MD Active OMEPRAZOLE 20 MG ORAL CAPSULE DELAYED RELEASE 1 tablet by mo [facility] daily for GERD OMEPRAZOLE 65717790167 No Longer Active Adam Yates MD Active ZOFRAN 8 MG ORAL TABLET 1 tab by mouth every 12 hours prn 4 ONDANSETRON HCL 20249039137 No Longer Active Adam Yates MD Active PHENADOZ 25 MG RECTAL SUPPOSITORY 1 every 4 hrs. PRN 2 PROMETHAZINE HCL 93638920607 No Longer Active Adam Yates MD A ctive POTASSIUM CHLORIDE 20 MEQ ORAL PACKET by mouth twice a day prn 2 POTASSIUM CHLORIDE 94326759014 No Longer Active Adam Carpenter MD Active PROMETHAZINE HCL 25 MG ORAL TABLET 1 Q. 4 hr. PRN PROMETHAZINE HCL 79224140270 No Longer Active Adam Yates MD Active INNOPRAN XL 120 MG ORAL CAPSULE EXTENDED RELEASE 24 HO UR Take one by mouth daily PROPRANOLOL HCL SR BEADS 83714613032 No Longer Active Adam Yates MD Active FLAGYL 500 MG ORAL TABLET 1 pill by mouth three times daily, for diarrhea METRONIDAZOLE 88576236066 No Longer Active Hope landers MD PhD Active DYAZIDE 37.5-25 MG ORAL CAPSULE 1 qd TRIA MTERENE-HCTZ 27471917300 No Longer Active Hope Benavidez MD PhD Active PROZAC 20 MG ORAL CAPSULE 1 q d FLUOXETINE HCL 06729179699 No Longer Active Hope Benavidez MD PhD Active SIMVASTATIN 40 MG ORAL TABLET 1 qd SIMVAS TATIN 43274068834 No Longer Active Adam Yates MD Active MELOXICAM 15 MG ORAL TABLET 1 qd MELOXICAM 10017499886 No Longer Active Adam Yates MD Active EXCEDRIN EXTRA STRENGTH 250-250-65 MG ORAL TABLET 1-2 q6h WV N headache [id number] 76677111546 Active Hope Benavidez MD PhD Active FLAGYL 500 MG ORAL TABLET 1 qid METRONIDAZOL E 03520871100 No Longer Active Adam Yates MD Active LEVAQUIN 750 MG ORAL TABLET 1 qd LEVOFLOXAC IN 65729796208 No Longer Active Adam Yates MD Active ADULT ASPIRIN LOW STRENGTH 81 MG ORAL TABLET DISINTEGRATING 1 qd ASPIRIN 19463521077 Active Hope Benavidez MD PhD Active LEVAQUIN 750 MG ORAL TABLET 1 qd LEVAQUIN 750 MG ORAL TABLET 123475 LEVOFLOXACIN Inactive FLAGYL 500 MG ORAL TABLET 1 qid FLAGYL 500 MG ORAL TABLET 482469 METRONIDAZOLE Inactive MELOXICAM 15 MG ORAL TABLET 1 qd MELOXICAM 15 MG ORAL TABLET 218238 MELOXICAM Inactive SIMVASTATIN 40 MG ORAL TABLET 1 qd SIMVASTATIN 40 MG ORAL TABLET 832020 SIMVASTATIN Inactive PROZAC 20 MG ORAL CAPSULE 1 q d PROZAC 20 MG ORAL CAPSULE 869788 FLUOXETINE HCL Inactive DYAZIDE 37.5-25 MG ORAL CAPSULE 1 qd 5 DYAZIDE 37.5-25 MG ORAL CAPSULE 012757 TRIAMTERENE-HCTZ Inactive INNOPRAN XL 120 MG ORAL CAPSULE EXTENDED RELEASE 24 HO UR Take one by mouth daily INNOPRAN XL 120 MG ORAL CAPSULE EXTENDED RELEASE 24 HOUR PROPRANOLOL HCL SR BEADS Inactive PROMETHAZINE HCL 25 MG ORAL TABLET 1 Q. 4 hr. PRN 2013 PROMETHAZINE HCL 25 MG ORAL TABLET 024971 PROMETHAZINE HCL Inactive POTASSIUM CHLORIDE 20 MEQ ORAL PACKET by mouth twice a day prn 2 POTASSIUM CHLORIDE 20 MEQ ORAL PACKET 2995305 POTASSIUM CHLORIDE Inactive PHENADOZ 25 MG RECTAL SUPPOSITORY 1 every 4 hrs. PRN 2 PHENADOZ 25 MG RECTAL SUPPOSITORY 202808 PROMETHAZINE HCL Inactive ZOFRAN 8 MG ORAL TABLET 1 tab by mouth every 12 hours prn 4 ZOFRAN 8 MG ORAL TABLET 443879 ONDANSETRON HCL Inactive OMEPRAZOLE 20 MG ORAL CAPSULE DELAYED RELEASE 1 tablet by mo uth daily for GERD OMEPRAZOLE 20 MG ORAL CAPSULE DELAYED RELEASE 19 8051 OMEPRAZOLE Inactive CYCLOBENZAPRINE HCL 10 MG ORAL TABLET 1 tablet by mout h three times daily as needed for headaches CYCLOBENZAPRINE HCL 10 MG ORAL TABLET 843787 CYCLOBENZAPRINE HCL Inactive VITAMIN D3 4000 IU 1 tab 3 times daily VITAMIN D3 4000 IU Inactive PROPRANOLOL HCL 80 MG ORAL TABLET 1 tab tue. and thur. PROPRANOLOL HCL 80 MG ORAL TABLET 286593 PROPRANOLOL HCL Inacti ve CYANOCOBALAMIN 1000 MCG/ML INJECTION SOLUTION 1 injection ev ruben 2 weeks CYANOCOBALAMIN 1000 MCG/ML INJECTION SOLUTION 30 9594 CYANOCOBALAMIN Inactive MAGNESIUM GLUCONATE 250 MG ORAL TABLET 1 tab tid 20 23/10/23 MAGNESIUM GLUCONATE 250 MG ORAL TABLET 516249 MAGNESIUM GLUCONATE Inactive LOMOTIL 2.5-0.025 MG ORAL TABLET 1 tab by mouth prn 20 23/10/23 LOMOTIL 2.5-0.025 MG ORAL TABLET 6272693 DIPHENOXYLATE-ATROPINE Inac tive FLORANEX ORAL PACKET 1 pack three times daily, for bowel health FLORANEX ORAL PACKET 55935675731 LACTOBACILLUS Inactive IRON 325 (65 Fe) MG ORAL TABLET 1 every other day 2015 IRON 325 (65 Fe) MG ORAL TABLET 455616 FERROUS SULFATE Inactive FLAGYL 500 MG ORAL TABLET 1 pill by mouth three times daily, for diarrhea FLAGYL 500 MG ORAL TABLET 701204 METRONIDAZOLE I nactive BACTRIM DS 800-160 MG ORAL TABLET 1 pill by mouth twice claudio y, for UTI BACTRIM DS 800-160 MG ORAL TABLET 321273 SULFAMETHOXAZOLE-TRIMETHOPRIM Inactive Advance Directives Directive Description Start [...] <30 mg/g Normal mg/g m g/g{creat} 0-29 blood glucose 80 mg/dL 65-110 carbon dioxide, venous blood 32.5 mmol/L 21.0-32 .0 chloride, serum 101 mmol/L 98-107 potassium, serum 4.0 mmol/L 3.5-5.2 sodium, serum 138 mmol/L 513-780 5446/12/15 calcium, serum 9.1 mg/dL 8.5-10.1 urea nitrogen, [...] Chem istry potassium, serum 3.8 mmol/L 3.5-5.2 chloride, serum 101 mmol/L 98-107 blood glucose 97 mg/dL 65-110 urea nitrogen, blood 23 mg/dL 7-18 sodium, serum 142 mmol/L 180-640 0500/04/19 creatinine, serum 1.33 mg/dL 0.60-1.30 alanine aminotransferase (SGPT), serum 27 U/L 12-78 aspartate aminotransferase (SGOT), serum 24 U/L 15-37 calcium, serum 9.4 mg/dL 8.5-10.1 bilirubin, serum, total 0.80 mg/dL 0.00-1.00 carbon dioxide, venous blood 30.2 mmol/L 21.0-32 .0 Office Visit: [facility] - SUB - Basic LDL target level 130 mg/dL Office Visit: [facility] - SUB - Chemistry HDL cholesterol, serum, target level 40 mg/dL cholesterol, target level 200 mg/dL triglyceride, target level 150 mg/dL Encounters Code Encounter Date Provider Facility CPT-92226 [id number] Vst-Est Level III 14:29:19 CDT Fiorella Holt [facility] [place] CPT-19101 Level 2 Est. Patient 14:58:26 CDT Kylie Lund [facility] [place] CPT-93291 Level 3 Est. Patient 08:15:24 MEDICAL STAFF MANAGER Kylie Lund [facility] [place] CPT-37179 Level 2 Est. Patient 14:27:16 MEDICAL STAFF MANAGER Kylie boyd [facility] [place] CPT-92322 Level 3 Est. Patient 17:54:48 CDT Kylie boyd [facility] [place] CPT-63515 Level 3 Est. Patient 16:26:30 CDT Kina blackmon [facility] CPT-71298 Level 3 New Patient 16:22:01 MEDICAL STAFF MANAGER Adam Yates MD [facility] CPT-41448 Level 4 Est. Patient 17:00:48 CDT Kylie Yok [facility] [place] CPT-85939 Level 3 Est. Patient 13:15:54 CDT Kylie Lund [facility] CPT-76521 Level 3 Est. Patient 09:10:11 CDT Kylie Lund [facility] CPT-74917 Level 4 Est. Patient 12:08:30 MEDICAL STAFF MANAGER Hope cohn MD [facility] CPT-98678 Level 4 Est. Patient 19:08:42 MEDICAL STAFF MANAGER Hope cohn MD [facility] CPT-70841 Level 4 Est. Patient 20:04:51 CDT Hope cohn MD [facility] CPT-44350 Level 3 New Patient 01:46:11 MEDICAL STAFF MANAGER Hope landers MD [facility] Procedures Code Procedure Name Date Entry Date Standard Desc ription CPT-37978 First Vx - Ix admin for Medicare patients 02/08 10:02:45 CDT CPT-64217 Fluzone Quadrivalent Intramuscular Suspe nsion 0.5 ML 10:02:45 CDT CPT-64312 Magnesium - LAB USE ONLY 09:41:00 CDT 12/09 CPT-85338 Renal Panel - LAB USE ONLY 09:41:00 CDT 201 09/17/01 CPT-38498 Venipuncture Draw Fee 09:41:00 CDT CPT-94160 Calcium - LAB USE ONLY 17:25:11 CDT CPT-J0897 Prolia 60 mg 15:10:59 CDT CPT-85003 Abx/Therapy Injection 15:10:59 CDT CPT-G0439 [facility] Annual Wellness Exam 14:29:19 CDT CPT-14123 Venipuncture Draw Fee 10:59:04 CDT CPT-35462 CMP - LAB USE ONLY 10:59:04 CDT CPT-52238 CBC with Diff - LAB USE ONLY 10:59:03 CDT 2 CPT-J0897 Prolia 60 mg 15:46:54 MEDICAL STAFF MANAGER CPT-45641 Abx/Therapy Injection 15:46:54 MEDICAL STAFF MANAGER CPT-61392 Microalbumin - LAB USE ONLY 09:41:32 MEDICAL STAFF MANAGER 20 23/01/15 CPT-61595 Free T4 - LAB USE ONLY 09:41:32 MEDICAL STAFF MANAGER CPT-43878 TSH - LAB USE ONLY 09:41:32 MEDICAL STAFF MANAGER CPT-40933 BMP - LAB USE ONLY 09:41:32 MEDICAL STAFF MANAGER CPT-16020 Venipuncture Draw Fee 09:41:32 MEDICAL STAFF MANAGER CPT-92952 First Vx - Ix admin for Medicare patients 11:19:30 CDT CPT-70457 Fluzone High-Dose Intramuscular Suspension 12/07 11:19:30 CDT CPT-J0897 Prolia 60 mg 14:55:42 CDT CPT-82191 Abx/Therapy Injection 14:55:42 CDT CPT-60072 Bone Density - XRAY USE ONLY 10:27:12 CDT 2 CPT-G0439 Subsequent Annual Wellness Exam 17:54:53 CDT CPT-72779 Foot, left, comp min 3V - XRAY USE ONLY 12:22:49 CDT CPT-G0009 Administration of Pneumococcal Vaccine 3 12:18:00 CDT CPT-77998 Pneumovax 23 Injection Injectable 25 MCG /0.5ML 12:18:00 CDT CPT-J0897 Prolia 60 mg 14:14:16 MEDICAL STAFF MANAGER CPT-42800 Abx/Therapy Injection 14:14:15 MEDICAL STAFF MANAGER CPT-55712 Lipid - LAB USE ONLY 10:01:52 MEDICAL STAFF MANAGER 2 CPT-56389 Calcium - LAB USE ONLY 10:01:51 MEDICAL STAFF MANAGER CPT-57140 Venipuncture Draw Fee 10:01:51 MEDICAL STAFF MANAGER CPT-LR Lesion Removal 16:22:01 MEDICAL STAFF MANAGER CPT-81478 TSH - LAB USE ONLY 14:26:02 CDT CPT-37695 CMP - LAB USE ONLY 14:26:01 CDT CPT-18583 CBC with Diff - LAB USE ONLY 14:26:01 CDT 2 CPT-50457 Venipuncture Draw Fee 14:26:01 CDT CPT-40002 First Vx - Ix admin for Medicare patients 13:27:08 CDT CPT-43127 Fluzone High-Dose Intramuscular Suspension 11/26 13:27:08 CDT CPT-G0438 Initial Annual Wellness Exam 14:19:57 CD T CPT-G0009 Administration of Pneumococcal Vaccine 9 11:36:25 CDT CPT-36916 Prevnar 13 Intramuscular Suspension 1 1:36:25 CDT CPT-06997 Prevnar 13 Intramuscular Suspension 1 0:40:58 CDT CPT-J0897 Prolia 60 mg 10:37:16 CDT CPT-71491 Abx/Therapy Injection 10:37:16 CDT CPT-J0897 Prolia 60 mg 16:09:34 MEDICAL STAFF MANAGER CPT-J0897 Prolia 60 mg 11:10:35 MEDICAL STAFF MANAGER CPT-92121 Abx/Therapy Injection 11:10:35 MEDICAL STAFF MANAGER CPT-000 Give Appropriate Flu Vaccine 17:01:15 MEDICAL STAFF MANAGER 2 CPT-96762 Fluzone High Dose (65+) 15:03:08 MEDICAL STAFF MANAGER 02/15 CPT-86967 Immunization Single Admin 15:03:08 MEDICAL STAFF MANAGER 2014 CPT-OV Office Visit 15:58:06 CDT CPT-J0897 Prolia 60 mg 08:45:38 CDT CPT-97261 Abx/Therapy Injection 08:45:38 CDT CPT-J3420 Vitamin B12 1000mcg (Cyanocobalamin) 09:26:20 MEDICAL STAFF MANAGER CPT-17692 Abx/Therapy Injection 09:26:20 MEDICAL STAFF MANAGER CPT-J3420 Vitamin B12 1000mcg (Cyanocobalamin) 09:44:40 MEDICAL STAFF MANAGER CPT-98827 Abx/Therapy Injection 09:44:40 MEDICAL STAFF MANAGER CPT-J3420 Vitamin B12 1000mcg (Cyanocobalamin) 09:15:54 MEDICAL STAFF MANAGER CPT-32703 Abx/Therapy Injection 09:15:54 MEDICAL STAFF MANAGER CPT-J3420 Vitamin B12 1000mcg (Cyanocobalamin) 09:46:44 MEDICAL STAFF MANAGER CPT-48852 Abx/Therapy Injection 09:46:44 MEDICAL STAFF MANAGER CPT-J3420 Vitamin B12 1000mcg (Cyanocobalamin) 09:47:34 MEDICAL STAFF MANAGER CPT-28981 Abx/Therapy Injection 09:47:34 MEDICAL STAFF MANAGER CPT-J3420 Vitamin B12 1000mcg (Cyanocobalamin) 14:35:50 MEDICAL STAFF MANAGER CPT-J3420 Vitamin B12 1000mcg (Cyanocobalamin) 09:25:05 MEDICAL STAFF MANAGER CPT-24309 Abx/Therapy Injection 09:25:05 MEDICAL STAFF MANAGER CPT-G0008 Administration of Influenza Virus Vaccine 13:36:47 CDT CPT-91962 Fluzone High-Dose Intramuscular Suspension 11/15 13:36:47 CDT CPT-J0897 Prolia 60 mg 08:50:41 CDT CPT-74415 Abx/Therapy Injection 08:50:41 CDT CPT-44622 Bone Density 12:06:12 CDT CPT-54664 Bone Density 08:54:40 CDT CPT-OV Office Visit 15:37:02 CDT CPT-13103 Postop F/U Visit 15:47:49 CDT CPT-42200 Postop F/U Visit 15:21:02 CDT CPT-TCMH Transitional Care Mgmt-High 07:52:27 CDT 20 20/06/01 CPT-11703 Venipuncture Draw Fee 13:51:18 CDT CPT-09810 Venipuncture Draw Fee 10:14:55 MEDICAL STAFF MANAGER CPT-72890 Venipuncture Draw Fee 13:39:45 MEDICAL STAFF MANAGER CPT-OV Office Visit 15:11:22 MEDICAL STAFF MANAGER CPT-48619 Venipuncture Draw Fee 09:20:49 MEDICAL STAFF MANAGER CPT-30832 Venipuncture Draw Fee 16:52:15 MEDICAL STAFF MANAGER CPT-68243 Venipuncture Draw Fee 10:37:24 MEDICAL STAFF MANAGER CPT-35256 Venipuncture Draw Fee 08:21:21 MEDICAL STAFF MANAGER CPT-83096 Venipuncture Draw Fee 08:30:20 MEDICAL STAFF MANAGER CPT-93634 Venipuncture Draw Fee 14:53:21 MEDICAL STAFF MANAGER CPT-59345 Venipuncture Draw Fee 09:40:56 MEDICAL STAFF MANAGER CPT-20212 Venipuncture Draw Fee 10:30:47 MEDICAL STAFF MANAGER CPT-84101 Venipuncture Draw Fee 10:46:17 MEDICAL STAFF MANAGER CPT-76446 Venipuncture Draw Fee 11:12:45 MEDICAL STAFF MANAGER CPT-79576 Venipuncture Draw Fee 09:53:33 MEDICAL STAFF MANAGER CPT-37394 Venipuncture Draw Fee 11:53:51 MEDICAL STAFF MANAGER CPT-35586 Venipuncture Draw Fee 10:33:50 MEDICAL STAFF MANAGER CPT-15618 Venipuncture Draw Fee 10:05:01 MEDICAL STAFF MANAGER CPT-02686 Venipuncture Draw Fee 14:32:52 MEDICAL STAFF MANAGER CPT-31532 Venipuncture Draw Fee 09:46:13 MEDICAL STAFF MANAGER CPT-80613 Venipuncture Draw Fee 11:34:27 MEDICAL STAFF MANAGER CPT-97746 Venipuncture Draw Fee 13:17:16 MEDICAL STAFF MANAGER CPT-16216 Venipuncture Draw Fee 12:05:39 CDT CPT-25762 Venipuncture Draw Fee 12:49:12 CDT CPT-25457 Venipuncture Draw Fee 12:37:18 CDT CPT-41429 Venipuncture Draw Fee 10:57:11 CDT CPT-56743 Venipuncture Draw Fee 13:47:40 CDT CPT-13297 Venipuncture Draw Fee 10:02:17 CDT CPT-45280 TB Tubersol 17:32:32 CDT CPT-OV Office Visit 16:21:53 CDT CPT-OV Office Visit 15:49:22 CDT CPT-OV Office Visit 17:16:31 CDT CPT-OV Office Visit 10:43:31 CDT
--- OUTSIDE RECORDS SUMMARY | 2019-02-09 12:08 | XMS REPORT | Clinical Summary ---
Author Author Admin, Florecita Munoz Organization [facility] Address Unknown Phone Unavailable Allergies, Adverse Reactions, [...] Sebaceous cyst, scalp 706.2 Resolved Kylie Yokum [employer] Sebaceous cyst Cervical lymphadenopathy, anterior, left 785.6 Resolv ed Kylie Yokum [employer] Enlargement of lymph nodes Need for prophylactic vaccination and inoculation against in fluenza V04.81 Resolved Adam Yates MD Need for prophylactic vaccination and inoculation against influenza Preventive health care V70.0 Resolved Kylie Yoku m [employer] Routine general medical examination at a health care facility Thyroid nodule, left 241.0 Active Kylie Yokum A PRN Nontoxic uninodular goiter Screening mammogram V76.12 Resolved Kylie Yokum A PRN Other screening mammogram Mandy 706.2 Resolved Kylie Yokum [employer] Sebaceous cyst Colon cancer, ascending 153.6 Resolved Kylie Yok um [employer] Malignant neoplasm of ascending colon Foot pain, left 729.5 Resolved Kylie Yokum [employer] Pain in limb Splinter 919.6 Resolved Kylie Yokum [employer] Superficial foreign body (splinter) of other, multiple, and unspecified sites, without major open wound and without mention of infection Rash 782.1 Resolved Kylie Yokum [employer] Rash and other nonspecific skin eruption Cyst 706.2 Resolved Kylie Yokum [employer] Sebaceous cyst Body Mass Index 23.0-23.9 Adult Active Kylie Yokum [employer] Body Mass Index between 19-24, adult Unspecified fall, initial encounter E888.9 Inactive Kylie Holt [employer] Unspecified fall Eye pain, left 379.91 Inactive Kylie Holt [employer] Pain in or around eye Pharyngitis, acute 074.0 Active Kylie Holt APR N Herpangina Chronic kidney disease stage 2 585.2 Active Rosemarie Gresham RN Chronic kidney disease, Stage II (mild) Hypomagnesemia 275.2 Active Rosemarie Gresham RN Disorders of magnesium metabolism Hypokalemia 276.8 Active Rosemarie Gresham RN Hypopotassemia ABDOMINAL PAIN, RIGHT LOWER QUADRANT ICD-789.03 Inactive Kina Joshua [employer] ADENOCARCINOMA, COLON, 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 Dick Yates MD ABDOMINAL PAIN, GENERALIZED ICD-789.07 Inactive Hope Benavidez MD PhD FEVER UNSPECIFIED ICD-780.60 Inactive Hope cohn MD PhD UNSPECIFIED VENOUS INSUFFICIENCY ICD-459.81 [place] ctive Adam Yates MD ADENOCARCINOMA, 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 Inac tive Hope Benavidez MD PhD Hyperkalemia ICD-276.7 Inactive oHpe Benavidez MD PhD GERD ICD-530.81 Inactive Kylie Holt [employer] 2015 Health maintenance exam ICD-V70.0 Bam Yates MD Anemia ICD-285.9 Inactive Kylie Holt [employer] 07/24 Hypomagnesemia ICD-275.2 Inactive Kylie Yokum [employer] Weakness ICD-780.79 Inactive Hope Benavidez MD P [...] cyst, scalp ICD-706.2 Inactive Tracy hi Yokum [employer] Cervical lymphadenopathy, anterior, left ICD-785.6 Inactive Kylie Yokum [employer] Need for prophylactic vaccination and inoculation against in fluenza ICD-V04.81 Inactive Adam Yates MD Preventive health care ICD-V70.0 Inactive Ka thi Yokum [employer] Screening mammogram ICD-V76.12 Inactive Kylie Yokum [employer] Mandy ICD-706.2 Inactive Kylie Yokum [employer] 07/20 Colon cancer, ascending ICD-153.6 Inactive K athi Yokum [employer] Foot pain, left ICD-729.5 Inactive Kylie Holt [employer] Splinter ICD-919.6 Inactive Kylie Holt [employer] 2017 Rash ICD-782.1 Inactive Kylie Holt [employer] 07/25 Cyst ICD-706.2 Inactive Kylie Holt [employer] 08/11 Unspecified fall, initial encounter ICD-E888.9 Inactive Kylie Holt [employer] Eye pain, left ICD-379.91 Inactive Kylie Holt [employer] Medication List Medication Instructions Start Date Stop Date Generic Name NDC Status Provider Patient Instruction IMODIUM A-D 2 MG ORAL TABLET 1 tablet twice a day LOPERAMIDE HCL 77023318710 Active Kylie Holt APRN Active VOLTAREN 1 % TRANSDERMAL GEL apply q 6-8 hour to left arm as needed for pain DICLOFENAC SODIUM 64978415027 Active Kylie Holt APRN Active COQ10 100 MG ORAL CAPSULE 1 daily COENZYME Q10 791413 84331 Active LETY Nation Active VITAMIN D3 2000 UNIT ORAL CAPSULE Melaleuca-One daily CHOLECALCIFEROL 33756272858 Active Kylie Holt APRN Active PROBIOTIC DAILY ORAL CAPSULE Take one daily PROBIO TIC PRODUCT 08237074493 Active Kylie Holt APRN Active IRON 325 (65 Fe) MG ORAL TABLET 1 every other day FERROUS SULFATE 57819349513 No Longer Active Kylie Holt APRN Active FLORANEX ORAL PACKET 1 pack three times daily, for bowel health LACTOBACILLUS 96934535440 No Longer Active Kylie Holt APRN Active LOMOTIL 2.5-0.025 MG ORAL TABLET 1 tab by mouth prn 20 23/10/23 DIPHENOXYLATE-ATROPINE 71356285697 No Longer Active Kylie Yokum [employer] Active MAGNESIUM GLUCONATE 250 MG ORAL TABLET 1 tab tid 23/10/23 MAGNESIUM GLUCONATE 23834505741 No Longer Active Kylie Lundum [employer] Active CYANOCOBALAMIN 1000 MCG/ML INJECTION SOLUTION 1 injection ev ruben 2 weeks CYANOCOBALAMIN 55210209213 No Longer Active Kylie Yok um [employer] Active ATENOLOL 25 MG ORAL TABLET 1/2 pill by mouth daily, fo r headaches, blood pressure ATENOLOL 19868456356 Active Kylie Yokum [employer] Active PROPRANOLOL HCL 80 MG ORAL TABLET 1 tab tue. and thur. PROPRANOLOL HCL 23555607273 No Longer Active Hope Benavidez MD PhD A ctive VITAMIN D3 4000 IU 1 tab 3 times daily VITAMIN D3 4000 IU No Longer Active Hope Benavidez MD PhD Active BACTRIM DS 800-160 MG ORAL TABLET 1 pill by mouth twice claudio y, for UTI SULFAMETHOXAZOLE-TRIMETHOPRIM 83402363560 No Longer Active Hope Benavidez MD PhD Active PROLIA 60 MG/ML SUBCUTANEOUS SOLUTION 1 shot every 6 months for osteoprosis DENOSUMAB 51764056154 Active Hope Benavidez MD PhD Active CALCIUM + D + K 750-500-40 MG-UNT-MCG ORAL TABLET 1 tab by m out twice daily CALCIUM-VITAMIN D-VITAMIN K 80653602118 Active Hope valdez MD PhD Active DAILY VALUE MULTIVITAMIN ORAL TABLET 1 tab by mouth twice daily 201 05/16/14 MULTIPLE VITAMIN 94242515467 Active Hope Benavidez MD PhD Acti ve FISH OIL 306 MG CAPS 1 tab by mouth three times daily OMEGA-3 FATTY ACIDS 52313101063 Active Hope Benavidez MD PhD Active LUTEIN 10 MG ORAL TABLET 1 tab daily LUTEIN 39042232 408 Active Hope Benavidez MD PhD Active TRIAMTERENE-HCTZ 37.5-25 MG ORAL TABLET 1 tab by mouth daily 10/22 TRIAMTERENE-HCTZ 81468949139 Active Kylie Lundum [employer] Active CYCLOBENZAPRINE HCL 10 MG ORAL TABLET 1 tablet by mout three times daily as needed for headaches CYCLOBENZAPRINE HCL 74325969455 No Longer Active Adam Yates MD Active OMEPRAZOLE 20 MG ORAL CAPSULE DELAYED RELEASE 1 tablet by mo [facility] daily for GERD OMEPRAZOLE 98964524518 No Longer Active Adam Yates MD Active ZOFRAN 8 MG ORAL TABLET 1 tab by mouth every 12 hours prn 4 ONDANSETRON HCL 86720335569 No Longer Active Adam Yates MD Active PHENADOZ 25 MG RECTAL SUPPOSITORY 1 every 4 hrs. PRN 2 PROMETHAZINE HCL 91100222396 No Longer Active Adam Yates MD A ctive POTASSIUM CHLORIDE 20 MEQ ORAL PACKET by mouth twice a day prn 2 POTASSIUM CHLORIDE 34411450228 No Longer Active Adam Carpenter MD Active PROMETHAZINE HCL 25 MG ORAL TABLET 1 Q. 4 hr. PRN PROMETHAZINE HCL 55894386336 No Longer Active Adam Yates MD Active INNOPRAN XL 120 MG ORAL CAPSULE EXTENDED RELEASE 24 HO UR Take one by mouth daily PROPRANOLOL HCL SR BEADS 74527192401 No Longer Active Adam Yates MD Active FLAGYL 500 MG ORAL TABLET 1 pill by mouth three times daily, for diarrhea METRONIDAZOLE 60512310010 No Longer Active Hope landers MD PhD Active DYAZIDE 37.5-25 MG ORAL CAPSULE 1 qd TRIA MTERENE-HCTZ 64327908901 No Longer Active Hope Benavidez MD PhD Active PROZAC 20 MG ORAL CAPSULE 1 q d FLUOXETINE HCL 42214770685 No Longer Active Hope Benavidez MD PhD Active SIMVASTATIN 40 MG ORAL TABLET 1 qd SIMVAS TATIN 83215648318 No Longer Active Adam Yates MD Active MELOXICAM 15 MG ORAL TABLET 1 qd MELOXICAM 77183504953 No Longer Active Adam Yates MD Active EXCEDRIN EXTRA STRENGTH 250-250-65 MG ORAL TABLET 1-2 q6h ME N headache [id number] 25163025528 Active Hope Benavidez MD PhD Active FLAGYL 500 MG ORAL TABLET 1 qid METRONIDAZOL E 25198405227 No Longer Active Adam Yates MD Active LEVAQUIN 750 MG ORAL TABLET 1 qd LEVOFLOXAC IN 08711986062 No Longer Active Adam Yates MD Active ADULT ASPIRIN LOW STRENGTH 81 MG ORAL TABLET DISINTEGRATING 1 qd ASPIRIN 57405893397 Active Hope Benavidez MD PhD Active LEVAQUIN 750 MG ORAL TABLET 1 qd LEVAQUIN 750 MG ORAL TABLET 593819 LEVOFLOXACIN Inactive FLAGYL 500 MG ORAL TABLET 1 qid FLAGYL 500 MG ORAL TABLET 367997 METRONIDAZOLE Inactive MELOXICAM 15 MG ORAL TABLET 1 qd MELOXICAM 15 MG ORAL TABLET 446199 MELOXICAM Inactive SIMVASTATIN 40 MG ORAL TABLET 1 qd SIMVASTATIN 40 MG ORAL TABLET 340481 SIMVASTATIN Inactive PROZAC 20 MG ORAL CAPSULE 1 q d PROZAC 20 MG ORAL CAPSULE 141965 FLUOXETINE HCL Inactive DYAZIDE 37.5-25 MG ORAL CAPSULE 1 qd 5 DYAZIDE 37.5-25 MG ORAL CAPSULE 997453 TRIAMTERENE-HCTZ Inactive INNOPRAN XL 120 MG ORAL CAPSULE EXTENDED RELEASE 24 HO UR Take one by mouth daily INNOPRAN XL 120 MG ORAL CAPSULE EXTENDED RELEASE 24 HOUR PROPRANOLOL HCL SR BEADS Inactive PROMETHAZINE HCL 25 MG ORAL TABLET 1 Q. 4 hr. PRN 2013 PROMETHAZINE HCL 25 MG ORAL TABLET 588517 PROMETHAZINE HCL Inactive POTASSIUM CHLORIDE 20 MEQ ORAL PACKET by mouth twice a day prn 2 POTASSIUM CHLORIDE 20 MEQ ORAL PACKET 5509340 POTASSIUM CHLORIDE Inactive PHENADOZ 25 MG RECTAL SUPPOSITORY 1 every 4 hrs. PRN 2 PHENADOZ 25 MG RECTAL SUPPOSITORY 346194 PROMETHAZINE HCL Inactive ZOFRAN 8 MG ORAL TABLET 1 tab by mouth every 12 hours prn 4 ZOFRAN 8 MG ORAL TABLET 193133 ONDANSETRON HCL Inactive OMEPRAZOLE 20 MG ORAL CAPSULE DELAYED RELEASE 1 tablet by mo uth daily for GERD OMEPRAZOLE 20 MG ORAL CAPSULE DELAYED RELEASE 19 8051 OMEPRAZOLE Inactive CYCLOBENZAPRINE HCL 10 MG ORAL TABLET 1 tablet by mout h three times daily as needed for headaches CYCLOBENZAPRINE HCL 10 MG ORAL TABLET 280420 CYCLOBENZAPRINE HCL Inactive VITAMIN D3 4000 IU 1 tab 3 times daily VITAMIN D3 4000 IU Inactive PROPRANOLOL HCL 80 MG ORAL TABLET 1 tab tue. and thur. PROPRANOLOL HCL 80 MG ORAL TABLET 814240 PROPRANOLOL HCL Inacti ve CYANOCOBALAMIN 1000 MCG/ML INJECTION SOLUTION 1 injection ev ruben 2 weeks CYANOCOBALAMIN 1000 MCG/ML INJECTION SOLUTION 30 9594 CYANOCOBALAMIN Inactive MAGNESIUM GLUCONATE 250 MG ORAL TABLET 1 tab tid 20 23/10/23 MAGNESIUM GLUCONATE 250 MG ORAL TABLET 816003 MAGNESIUM GLUCONATE Inactive LOMOTIL 2.5-0.025 MG ORAL TABLET 1 tab by mouth prn 20 23/10/23 LOMOTIL 2.5-0.025 MG ORAL TABLET 8062435 DIPHENOXYLATE-ATROPINE Inac tive FLORANEX ORAL PACKET 1 pack three times daily, for bowel health FLORANEX ORAL PACKET 37161505772 LACTOBACILLUS Inactive IRON 325 (65 Fe) MG ORAL TABLET 1 every other day 2015 IRON 325 (65 Fe) MG ORAL TABLET 255539 FERROUS SULFATE Inactive FLAGYL 500 MG ORAL TABLET 1 pill by mouth three times daily, for diarrhea FLAGYL 500 MG ORAL TABLET 194714 METRONIDAZOLE I nactive BACTRIM DS 800-160 MG ORAL TABLET 1 pill by mouth twice claudio y, for UTI BACTRIM DS 800-160 MG ORAL TABLET 582012 SULFAMETHOXAZOLE-TRIMETHOPRIM Inactive Advance Directives Directive Description Start [...] (L), Free ... - Chemistry sodium, serum 138 mmol/L 106-016 4812/12/15 potassium, serum 4.0 mmol/L 3.5-5.2 chloride, serum 101 mmol/L 98-107 carbon dioxide, venous blood 32.5 mmol/L 21.0-32 .0 blood glucose 80 mg/dL 65-110 calcium, serum 9.1 mg/dL 8.5-10.1 urea nitrogen, blood 23 mg/dL 7-18 creatinine, serum 1.09 mg/dL 0.60-1.30 TSH 1.11 m[iU]/mL 0.36-3.74 thyroxine, serum, free 0.85 ng/dL 0.59-1.17 albumin/creatinine ratio, urine <30 mg/g Normal mg/g m g/g{creat} 0-29 Lab Report: Basic Metabolic Panel, Thyro id Stimulating Hormone (L), Free ... - Lab microalbumin, urine 10 mg/L 0-19 Lab Report: Calcium - Chemistry calcium, serum 9.1 mg/dL 8.5-10.1 Lab Report: CEA - Serology carcinoembryonic antigen 0.6 ng/mL Lab Report: Comp. Metabolic Panel - Chem istry sodium, serum 142 mmol/L 324-649 1144/04/19 carbon dioxide, venous blood 30.2 mmol/L 21.0-32 .0 potassium, serum 3.8 mmol/L 3.5-5.2 chloride, serum 101 mmol/L 98-107 blood glucose 97 mg/dL 65-110 urea nitrogen, blood 23 mg/dL 7-18 creatinine, serum 1.33 mg/dL 0.60-1.30 alanine aminotransferase (SGPT), serum 27 U/L 12-78 aspartate aminotransferase (SGOT), serum 24 U/L 15-37 calcium, serum 9.4 mg/dL 8.5-10.1 bilirubin, serum, total 0.80 mg/dL 0.00-1.00 Office Visit: [facility] - SUB - Basic LDL target level 130 mg/dL Office Visit: [facility] - SUB - Chemistry HDL cholesterol, serum, target level 40 mg/dL cholesterol, target level 200 mg/dL triglyceride, target level 150 mg/dL Encounters Code Encounter Date Provider Facility CPT-08614 [id number] Vst-Est Level III 14:29:19 CDT Fiorella Holt [facility] [place] CPT-23818 Level 2 Est. Patient 14:58:26 CDT Kylie Lund [facility] [place] CPT-76285 Level 3 Est. Patient 08:15:24 JAILKEEPER Kylie Lund [facility] [place] CPT-96818 Level 2 Est. Patient 14:27:16 JAILKEEPER Kylie boyd [facility] [place] CPT-74829 Level 3 Est. Patient 17:54:48 CDT Kylie boyd [facility] [place] CPT-12237 Level 3 Est. Patient 16:26:30 CDT Kina [facility] CPT-58538 Level 3 New Patient 16:22:01 JAILKEEPER Adam Yates [facility] CPT-53614 Level 4 Est. Patient 17:00:48 CDT Kylie Yok [facility] [place] CPT-07563 Level 3 Est. Patient 13:15:54 CDT Kylie Lund [facility] CPT-77652 Level 3 Est. Patient 09:10:11 CDT Kylie Lund [facility] CPT-90398 Level 4 Est. Patient 12:08:30 JAILKEEPER Hope cohn MD [facility] CPT-58854 Level 4 Est. Patient 19:08:42 JAILKEEPER Hope cohn MD [facility] CPT-30891 Level 4 Est. Patient 20:04:51 CDT Hope cohn MD [facility] CPT-53871 Level 3 New Patient 01:46:11 JAILKEEPER Hope landers MD [facility] Procedures Code Procedure Name Date Entry Date Standard Desc ription CPT-84749 First Vx - Ix admin for Medicare patients 02/08 10:02:45 CDT CPT-52677 Fluzone Quadrivalent Intramuscular Suspe nsion 0.5 ML 10:02:45 CDT CPT-09365 Magnesium - LAB USE ONLY 09:41:00 CDT 12/09 CPT-55329 Renal Panel - LAB USE ONLY 09:41:00 CDT 201 09/17/01 CPT-65816 Venipuncture Draw Fee 09:41:00 CDT CPT-70704 Calcium - LAB USE ONLY 17:25:11 CDT CPT-J0897 Prolia 60 mg 15:10:59 CDT CPT-29710 Abx/Therapy Injection 15:10:59 CDT CPT-G0439 [facility] Annual Wellness Exam 14:29:19 CDT CPT-77870 Venipuncture Draw Fee 10:59:04 CDT CPT-78456 CMP - LAB USE ONLY 10:59:04 CDT CPT-26534 CBC with Diff - LAB USE ONLY 10:59:03 CDT 2 CPT-J0897 Prolia 60 mg 15:46:54 JAILKEEPER CPT-34838 Abx/Therapy Injection 15:46:54 JAILKEEPER CPT-91932 Microalbumin - LAB USE ONLY 09:41:32 JAILKEEPER 20 23/01/15 CPT-06805 Free T4 - LAB USE ONLY 09:41:32 JAILKEEPER CPT-98811 TSH - LAB USE ONLY 09:41:32 JAILKEEPER CPT-35708 BMP - LAB USE ONLY 09:41:32 JAILKEEPER CPT-98874 Venipuncture Draw Fee 09:41:32 JAILKEEPER CPT-46152 First Vx - Ix admin for Medicare patients 11:19:30 CDT CPT-23000 Fluzone High-Dose Intramuscular Suspension 12/07 11:19:30 CDT CPT-J0897 Prolia 60 mg 14:55:42 CDT CPT-64244 Abx/Therapy Injection 14:55:42 CDT CPT-28513 Bone Density - XRAY USE ONLY 10:27:12 CDT 2 CPT-G0439 Subsequent Annual Wellness Exam 17:54:53 CDT CPT-12389 Foot, left, comp min 3V - XRAY USE ONLY 12:22:49 CDT CPT-G0009 Administration of Pneumococcal Vaccine 3 12:18:00 CDT CPT-07562 Pneumovax 23 Injection Injectable 25 MCG /0.5ML 12:18:00 CDT CPT-J0897 Prolia 60 mg 14:14:16 JAILKEEPER CPT-34545 Abx/Therapy Injection 14:14:15 JAILKEEPER CPT-46004 Lipid - LAB USE ONLY 10:01:52 JAILKEEPER 2 CPT-46922 Calcium - LAB USE ONLY 10:01:51 JAILKEEPER CPT-89571 Venipuncture Draw Fee 10:01:51 JAILKEEPER CPT-LR Lesion Removal 16:22:01 JAILKEEPER CPT-69560 TSH - LAB USE ONLY 14:26:02 CDT CPT-02790 CMP - LAB USE ONLY 14:26:01 CDT CPT-98521 CBC with Diff - LAB USE ONLY 14:26:01 CDT 2 CPT-82913 Venipuncture Draw Fee 14:26:01 CDT CPT-12325 First Vx - Ix admin for Medicare patients 13:27:08 CDT CPT-35858 Fluzone High-Dose Intramuscular Suspension 11/26 13:27:08 CDT CPT-G0438 Initial Annual Wellness Exam 14:19:57 CD T CPT-G0009 Administration of Pneumococcal Vaccine 9 11:36:25 CDT CPT-71959 Prevnar 13 Intramuscular Suspension 1 1:36:25 CDT CPT-49717 Prevnar 13 Intramuscular Suspension 1 0:40:58 CDT CPT-J0897 Prolia 60 mg 10:37:16 CDT CPT-54100 Abx/Therapy Injection 10:37:16 CDT CPT-J0897 Prolia 60 mg 16:09:34 JAILKEEPER CPT-J0897 Prolia 60 mg 11:10:35 JAILKEEPER CPT-72983 Abx/Therapy Injection 11:10:35 JAILKEEPER CPT-000 Give Appropriate Flu Vaccine 17:01:15 JAILKEEPER 2 CPT-77561 Fluzone High Dose (65+) 15:03:08 JAILKEEPER 02/15 CPT-02560 Immunization Single Admin 15:03:08 JAILKEEPER 2014 CPT-OV Office Visit 15:58:06 CDT CPT-J0897 Prolia 60 mg 08:45:38 CDT CPT-49483 Abx/Therapy Injection 08:45:38 CDT CPT-J3420 Vitamin B12 1000mcg (Cyanocobalamin) 09:26:20 JAILKEEPER CPT-07289 Abx/Therapy Injection 09:26:20 JAILKEEPER CPT-J3420 Vitamin B12 1000mcg (Cyanocobalamin) 09:44:40 JAILKEEPER CPT-96821 Abx/Therapy Injection 09:44:40 JAILKEEPER CPT-J3420 Vitamin B12 1000mcg (Cyanocobalamin) 09:15:54 JAILKEEPER CPT-01314 Abx/Therapy Injection 09:15:54 JAILKEEPER CPT-J3420 Vitamin B12 1000mcg (Cyanocobalamin) 09:46:44 JAILKEEPER CPT-07157 Abx/Therapy Injection 09:46:44 JAILKEEPER CPT-J3420 Vitamin B12 1000mcg (Cyanocobalamin) 09:47:34 JAILKEEPER CPT-92453 Abx/Therapy Injection 09:47:34 JAILKEEPER CPT-J3420 Vitamin B12 1000mcg (Cyanocobalamin) 14:35:50 JAILKEEPER CPT-J3420 Vitamin B12 1000mcg (Cyanocobalamin) 09:25:05 JAILKEEPER CPT-38462 Abx/Therapy Injection 09:25:05 JAILKEEPER CPT-G0008 Administration of Influenza Virus Vaccine 13:36:47 CDT CPT-54037 Fluzone High-Dose Intramuscular Suspension 11/15 13:36:47 CDT CPT-J0897 Prolia 60 mg 08:50:41 CDT CPT-35681 Abx/Therapy Injection 08:50:41 CDT CPT-21068 Bone Density 12:06:12 CDT CPT-79483 Bone Density 08:54:40 CDT CPT-OV Office Visit 15:37:02 CDT CPT-36068 Postop F/U Visit 15:47:49 CDT CPT-49259 Postop F/U Visit 15:21:02 CDT CPT-TCMH Transitional Care Mgmt-High 07:52:27 CDT 20 20/06/01 CPT-85613 Venipuncture Draw Fee 13:51:18 CDT CPT-26797 Venipuncture Draw Fee 10:14:55 JAILKEEPER CPT-47087 Venipuncture Draw Fee 13:39:45 JAILKEEPER CPT-OV Office Visit 15:11:22 JAILKEEPER CPT-30741 Venipuncture Draw Fee 09:20:49 JAILKEEPER CPT-73429 Venipuncture Draw Fee 16:52:15 JAILKEEPER CPT-76152 Venipuncture Draw Fee 10:37:24 JAILKEEPER CPT-44399 Venipuncture Draw Fee 08:21:21 JAILKEEPER CPT-92377 Venipuncture Draw Fee 08:30:20 JAILKEEPER CPT-73872 Venipuncture Draw Fee 14:53:21 JAILKEEPER CPT-74012 Venipuncture Draw Fee 09:40:56 JAILKEEPER CPT-81932 Venipuncture Draw Fee 10:30:47 JAILKEEPER CPT-03450 Venipuncture Draw Fee 10:46:17 JAILKEEPER CPT-53928 Venipuncture Draw Fee 11:12:45 JAILKEEPER CPT-17574 Venipuncture Draw Fee 09:53:33 JAILKEEPER CPT-82265 Venipuncture Draw Fee 11:53:51 JAILKEEPER CPT-18493 Venipuncture Draw Fee 10:33:50 JAILKEEPER CPT-76360 Venipuncture Draw Fee 10:05:01 JAILKEEPER CPT-05985 Venipuncture Draw Fee 14:32:52 JAILKEEPER CPT-45291 Venipuncture Draw Fee 09:46:13 JAILKEEPER CPT-26510 Venipuncture Draw Fee 11:34:27 JAILKEEPER CPT-84808 Venipuncture Draw Fee 13:17:16 JAILKEEPER CPT-11906 Venipuncture Draw Fee 12:05:39 CDT CPT-86431 Venipuncture Draw Fee 12:49:12 CDT CPT-87489 Venipuncture Draw Fee 12:37:18 CDT CPT-72288 Venipuncture Draw Fee 10:57:11 CDT CPT-80773 Venipuncture Draw Fee 13:47:40 CDT CPT-58327 Venipuncture Draw Fee 10:02:17 CDT CPT-98490 TB Tubersol 17:32:32 CDT CPT-OV Office Visit 16:21:53 CDT CPT-OV Office Visit 15:49:22 CDT CPT-OV Office Visit 17:16:31 CDT CPT-OV Office Visit 10:43:31 CDT
--- OUTSIDE RECORDS SUMMARY | 2019-02-09 12:08 | XMS REPORT | Clinical Summary ---
Author Author Admin, Florecita Munoz Organization [facility] Address Unknown Phone Unavailable Allergies, Adverse Reactions, [...] Sebaceous cyst, scalp 706.2 Resolved Kylie Yokum WARP KNITTING MACHINE OPERATOR Sebaceous cyst Cervical lymphadenopathy, anterior, left 785.6 Resolv ed Kylie Yokum WARP KNITTING MACHINE OPERATOR Enlargement of lymph nodes Need for prophylactic vaccination and inoculation against in fluenza V04.81 Resolved Aadm Yates MD Need for prophylactic vaccination and inoculation against influenza Preventive health care V70.0 Resolved Kyile Yoku m WARP KNITTING MACHINE OPERATOR Routine general medical examination at a health care facility Thyroid nodule, left 241.0 Active Kylie Yokum A PRN Nontoxic uninodular goiter Screening mammogram V76.12 Resolved Kylie Yokum A PRN Other screening mammogram Mandy 706.2 Resolved Kylie Yokum WARP KNITTING MACHINE OPERATOR Sebaceous cyst Colon cancer, ascending 153.6 Resolved Kylie Yok um WARP KNITTING MACHINE OPERATOR Malignant neoplasm of ascending colon Foot pain, left 729.5 Resolved Kylie Yokum WARP KNITTING MACHINE OPERATOR Pain in limb Splinter 919.6 Resolved Kylie Yokum WARP KNITTING MACHINE OPERATOR Superficial foreign body (splinter) of other, multiple, and unspecified sites, without major open wound and without mention of infection Rash 782.1 Resolved Kylie Yokum WARP KNITTING MACHINE OPERATOR Rash and other nonspecific skin eruption Cyst 706.2 Resolved Kylie Yokum WARP KNITTING MACHINE OPERATOR Sebaceous cyst Body Mass Index 23.0-23.9 Adult Active Kylie Yokum WARP KNITTING MACHINE OPERATOR Body Mass Index between 19-24, adult Unspecified fall, initial encounter E888.9 Inactive Kylie Holt WARP KNITTING MACHINE OPERATOR Unspecified fall Eye pain, left 379.91 Inactive Kylie Holt WARP KNITTING MACHINE OPERATOR Pain in or around eye Pharyngitis, acute 074.0 Active Kylie Holt APR N Herpangina Chronic kidney disease stage 2 585.2 Active Rosemarie Gresham RN Chronic kidney disease, Stage II (mild) Hypomagnesemia 275.2 Active Rosemarie Gresham RN Disorders of magnesium metabolism Hypokalemia 276.8 Active Rosemarie Gresham RN Hypopotassemia ABDOMINAL PAIN, RIGHT LOWER QUADRANT ICD-789.03 Inactive Kina Joshua WARP KNITTING MACHINE OPERATOR ADENOCARCINOMA, COLON, 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 Dick Yates MD ABDOMINAL PAIN, GENERALIZED ICD-789.07 Inactive Hope Benavidez MD PhD FEVER UNSPECIFIED ICD-780.60 Inactive Hope cohn MD PhD UNSPECIFIED VENOUS INSUFFICIENCY ICD-459.81 [place] ctive dAam Yates MD ADENOCARCINOMA, 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 Inac tive Hope Benavidez MD PhD Hyperkalemia ICD-276.7 Inactive Hope Benavidez MD PhD GERD ICD-530.81 Inactive Kylie Holt WARP KNITTING MACHINE OPERATOR 2015 Health maintenance exam ICD-V70.0 Bam Yates MD Anemia ICD-285.9 Inactive Kylie Holt WARP KNITTING MACHINE OPERATOR 07/24 Hypomagnesemia ICD-275.2 Inactive Kylie Yokum WARP KNITTING MACHINE OPERATOR Weakness ICD-780.79 Inactive Hope Benavidez MD [...] cyst, scalp ICD-706.2 Inactive Tracy hi Yokum WARP KNITTING MACHINE OPERATOR Cervical lymphadenopathy, anterior, left ICD-785.6 Inactive Kylie Yokum WARP KNITTING MACHINE OPERATOR Need for prophylactic vaccination and inoculation against in fluenza ICD-V04.81 Inactive Adam Yates MD Preventive health care ICD-V70.0 Inactive Ka thi Yokum WARP KNITTING MACHINE OPERATOR Screening mammogram ICD-V76.12 Inactive Kylie Yokum WARP KNITTING MACHINE OPERATOR Mandy ICD-706.2 Inactive Kylie Yokum WARP KNITTING MACHINE OPERATOR 07/20 Colon cancer, ascending ICD-153.6 Inactive K athi Yokum WARP KNITTING MACHINE OPERATOR Foot pain, left ICD-729.5 Inactive Kylie Holt WARP KNITTING MACHINE OPERATOR Splinter ICD-919.6 Inactive Kylie Holt WARP KNITTING MACHINE OPERATOR 2017 Rash ICD-782.1 Inactive Kylie Holt WARP KNITTING MACHINE OPERATOR 07/25 Cyst ICD-706.2 Inactive Kylie Holt WARP KNITTING MACHINE OPERATOR 08/11 Unspecified fall, initial encounter ICD-E888.9 Inactive Kylie Holt WARP KNITTING MACHINE OPERATOR Eye pain, left ICD-379.91 Inactive Kylie Holt WARP KNITTING MACHINE OPERATOR Medication List Medication Instructions Start Date Stop Date Generic Name NDC Status Provider Patient Instruction IMODIUM A-D 2 MG ORAL TABLET 1 tablet twice a day LOPERAMIDE HCL 11997214826 Active Kylie Holt APRN Active VOLTAREN 1 % TRANSDERMAL GEL apply q 6-8 hour to left arm as needed for pain DICLOFENAC SODIUM 07975983981 Active Kylie Holt APRN Active COQ10 100 MG ORAL CAPSULE 1 daily COENZYME Q10 906118 82032 Active LETY Nation Active VITAMIN D3 2000 UNIT ORAL CAPSULE Melaleuca-One daily CHOLECALCIFEROL 76756024848 Active Kylie Holt APRN Active PROBIOTIC DAILY ORAL CAPSULE Take one daily PROBIO TIC PRODUCT 54416711666 Active Kylie Holt APRN Active IRON 325 (65 Fe) MG ORAL TABLET 1 every other day FERROUS SULFATE 59439127558 No Longer Active Kylie Holt APRN Active FLORANEX ORAL PACKET 1 pack three times daily, for bowel health LACTOBACILLUS 51873591061 No Longer Active Kylie Holt APRN Active LOMOTIL 2.5-0.025 MG ORAL TABLET 1 tab by mouth prn 20 23/10/23 DIPHENOXYLATE-ATROPINE 80408026120 No Longer Active Kylie Yokum WARP KNITTING MACHINE OPERATOR Active MAGNESIUM GLUCONATE 250 MG ORAL TABLET 1 tab tid 23/10/23 MAGNESIUM GLUCONATE 07519806548 No Longer Active Kylie Lundum WARP KNITTING MACHINE OPERATOR Active CYANOCOBALAMIN 1000 MCG/ML INJECTION SOLUTION 1 injection ev ruben 2 weeks CYANOCOBALAMIN 71713868225 No Longer Active Kylie Yok um WARP KNITTING MACHINE OPERATOR Active ATENOLOL 25 MG ORAL TABLET 1/2 pill by mouth daily, fo r headaches, blood pressure ATENOLOL 97129937277 Active Kylie Yokum WARP KNITTING MACHINE OPERATOR Active PROPRANOLOL HCL 80 MG ORAL TABLET 1 tab tue. and thur. PROPRANOLOL HCL 43667420714 No Longer Active Hope Benavidez MD PhD A ctive VITAMIN D3 4000 IU 1 tab 3 times daily VITAMIN D3 4000 IU No Longer Active Hope Benavidez MD PhD Active BACTRIM DS 800-160 MG ORAL TABLET 1 pill by mouth twice claudio y, for UTI SULFAMETHOXAZOLE-TRIMETHOPRIM 26595601348 No Longer Active Hope Benavidez MD PhD Active PROLIA 60 MG/ML SUBCUTANEOUS SOLUTION 1 shot every 6 months for osteoprosis DENOSUMAB 24948985603 Active Hope eBnavidez MD PhD Active CALCIUM + D + K 750-500-40 MG-UNT-MCG ORAL TABLET 1 tab by m out twice daily CALCIUM-VITAMIN D-VITAMIN K 04688891116 Active Hope valdez MD PhD Active DAILY VALUE MULTIVITAMIN ORAL TABLET 1 tab by mouth twice daily 201 05/16/14 MULTIPLE VITAMIN 77984189581 Active Hope Benavidez MD PhD Acti ve FISH OIL 306 MG CAPS 1 tab by mouth three times daily OMEGA-3 FATTY ACIDS 30385198112 Active Hope Benavidez MD PhD Active LUTEIN 10 MG ORAL TABLET 1 tab daily LUTEIN 36258196 408 Active Hope Benavidez MD PhD Active TRIAMTERENE-HCTZ 37.5-25 MG ORAL TABLET 1 tab by mouth daily 10/22 TRIAMTERENE-HCTZ 50833271432 Active Kylie Lundum WARP KNITTING MACHINE OPERATOR Active CYCLOBENZAPRINE HCL 10 MG ORAL TABLET 1 tablet by mout three times daily as needed for headaches CYCLOBENZAPRINE HCL 50340513095 No Longer Active Adam Yates MD Active OMEPRAZOLE 20 MG ORAL CAPSULE DELAYED RELEASE 1 tablet by mo [facility] daily for GERD OMEPRAZOLE 35365055379 No Longer Active Adam Yates MD Active ZOFRAN 8 MG ORAL TABLET 1 tab by mouth every 12 hours prn 4 ONDANSETRON HCL 63738424716 No Longer Active Adam Yates MD Active PHENADOZ 25 MG RECTAL SUPPOSITORY 1 every 4 hrs. PRN 2 PROMETHAZINE HCL 27368628103 No Longer Active Adam Yates MD A ctive POTASSIUM CHLORIDE 20 MEQ ORAL PACKET by mouth twice a day prn 2 POTASSIUM CHLORIDE 22398970916 No Longer Active Adam Carpenter MD Active PROMETHAZINE HCL 25 MG ORAL TABLET 1 Q. 4 hr. PRN PROMETHAZINE HCL 13191209285 No Longer Active Adam Yates MD Active INNOPRAN XL 120 MG ORAL CAPSULE EXTENDED RELEASE 24 HO UR Take one by mouth daily PROPRANOLOL HCL SR BEADS 59670659202 No Longer Active Adam Yates MD Active FLAGYL 500 MG ORAL TABLET 1 pill by mouth three times daily, for diarrhea METRONIDAZOLE 88438123175 No Longer Active Hope landers MD PhD Active DYAZIDE 37.5-25 MG ORAL CAPSULE 1 qd TRIA MTERENE-HCTZ 49506689576 No Longer Active Hope Benavidez MD PhD Active PROZAC 20 MG ORAL CAPSULE 1 q d FLUOXETINE HCL 95649075524 No Longer Active Hope Benavidez MD PhD Active SIMVASTATIN 40 MG ORAL TABLET 1 qd SIMVAS TATIN 92255617259 No Longer Active Adam Yates MD Active MELOXICAM 15 MG ORAL TABLET 1 qd MELOXICAM 92140424528 No Longer Active Adam Yates MD Active EXCEDRIN EXTRA STRENGTH 250-250-65 MG ORAL TABLET 1-2 q6h TX N headache [id number] 45868247697 Active Hope Benavidez MD PhD Active FLAGYL 500 MG ORAL TABLET 1 qid METRONIDAZOL E 98903790929 No Longer Active Adam Yates MD Active LEVAQUIN 750 MG ORAL TABLET 1 qd LEVOFLOXAC IN 26826456459 No Longer Active Adam Yates MD Active ADULT ASPIRIN LOW STRENGTH 81 MG ORAL TABLET DISINTEGRATING 1 qd ASPIRIN 77424595152 Active Hope Benavidez MD PhD Active LEVAQUIN 750 MG ORAL TABLET 1 qd LEVAQUIN 750 MG ORAL TABLET 137373 LEVOFLOXACIN Inactive FLAGYL 500 MG ORAL TABLET 1 qid FLAGYL 500 MG ORAL TABLET 048534 METRONIDAZOLE Inactive MELOXICAM 15 MG ORAL TABLET 1 qd MELOXICAM 15 MG ORAL TABLET 367198 MELOXICAM Inactive SIMVASTATIN 40 MG ORAL TABLET 1 qd SIMVASTATIN 40 MG ORAL TABLET 830358 SIMVASTATIN Inactive PROZAC 20 MG ORAL CAPSULE 1 q d PROZAC 20 MG ORAL CAPSULE 443101 FLUOXETINE HCL Inactive DYAZIDE 37.5-25 MG ORAL CAPSULE 1 qd 5 DYAZIDE 37.5-25 MG ORAL CAPSULE 261736 TRIAMTERENE-HCTZ Inactive INNOPRAN XL 120 MG ORAL CAPSULE EXTENDED RELEASE 24 HO UR Take one by mouth daily INNOPRAN XL 120 MG ORAL CAPSULE EXTENDED RELEASE 24 HOUR PROPRANOLOL HCL SR BEADS Inactive PROMETHAZINE HCL 25 MG ORAL TABLET 1 Q. 4 hr. PRN 2013 PROMETHAZINE HCL 25 MG ORAL TABLET 758640 PROMETHAZINE HCL Inactive POTASSIUM CHLORIDE 20 MEQ ORAL PACKET by mouth twice a day prn 2 POTASSIUM CHLORIDE 20 MEQ ORAL PACKET 3053521 POTASSIUM CHLORIDE Inactive PHENADOZ 25 MG RECTAL SUPPOSITORY 1 every 4 hrs. PRN 2 PHENADOZ 25 MG RECTAL SUPPOSITORY 444193 PROMETHAZINE HCL Inactive ZOFRAN 8 MG ORAL TABLET 1 tab by mouth every 12 hours prn 4 ZOFRAN 8 MG ORAL TABLET 141768 ONDANSETRON HCL Inactive OMEPRAZOLE 20 MG ORAL CAPSULE DELAYED RELEASE 1 tablet by mo uth daily for GERD OMEPRAZOLE 20 MG ORAL CAPSULE DELAYED RELEASE 19 8051 OMEPRAZOLE Inactive CYCLOBENZAPRINE HCL 10 MG ORAL TABLET 1 tablet by mout h three times daily as needed for headaches CYCLOBENZAPRINE HCL 10 MG ORAL TABLET 539137 CYCLOBENZAPRINE HCL Inactive VITAMIN D3 4000 IU 1 tab 3 times daily VITAMIN D3 4000 IU Inactive PROPRANOLOL HCL 80 MG ORAL TABLET 1 tab tue. and thur. PROPRANOLOL HCL 80 MG ORAL TABLET 341363 PROPRANOLOL HCL Inacti ve CYANOCOBALAMIN 1000 MCG/ML INJECTION SOLUTION 1 injection ev ruben 2 weeks CYANOCOBALAMIN 1000 MCG/ML INJECTION SOLUTION 30 9594 CYANOCOBALAMIN Inactive MAGNESIUM GLUCONATE 250 MG ORAL TABLET 1 tab tid 20 23/10/23 MAGNESIUM GLUCONATE 250 MG ORAL TABLET 761975 MAGNESIUM GLUCONATE Inactive LOMOTIL 2.5-0.025 MG ORAL TABLET 1 tab by mouth prn 20 23/10/23 LOMOTIL 2.5-0.025 MG ORAL TABLET 5807187 DIPHENOXYLATE-ATROPINE Inac tive FLORANEX ORAL PACKET 1 pack three times daily, for bowel health FLORANEX ORAL PACKET 29945202015 LACTOBACILLUS Inactive IRON 325 (65 Fe) MG ORAL TABLET 1 every other day 2015 IRON 325 (65 Fe) MG ORAL TABLET 163638 FERROUS SULFATE Inactive FLAGYL 500 MG ORAL TABLET 1 pill by mouth three times daily, for diarrhea FLAGYL 500 MG ORAL TABLET 737147 METRONIDAZOLE I nactive BACTRIM DS 800-160 MG ORAL TABLET 1 pill by mouth twice claudio y, for UTI BACTRIM DS 800-160 MG ORAL TABLET 949086 SULFAMETHOXAZOLE-TRIMETHOPRIM Inactive Advance Directives Directive Description Start [...] ... - Chemistry sodium, serum 138 mmol/L 301-663 6644/12/15 potassium, serum 4.0 mmol/L 3.5-5.2 chloride, serum [...] - Chem istry sodium, serum 142 mmol/L 902-736 5852/04/19 carbon dioxide, venous blood 30.2 mmol/L 21.0-32 [...] - Chelle radha sodium, serum 142 mmol/L 785-532 4829/11/02 potassium, serum 3.4 mmol/L 3.5-5.2 chloride, serum [...] mg/dL Encounters Code Encounter Date Provider Facility CPT-44480 [id number] Vst-Est Level III 14:29:19 CDT Fiorella Holt [facility] CPT-00758 Level 2 Est. Patient 14:58:26 CDT [facility] C[facility]28 Level 3 Est. Patient 08:15:24 COIN TELLER Kylie boyd [facility] CPT-75063 Level 2 Est. Patient 14:27:16 COIN TELLER Kylie boyd [facility] CPT-33787 Level 3 Est. Patient 17:54:48 CDT Kylie boyd [facility] CPT-66529 Level 3 Est. Patient 16:26:30 CDT Kina blackmon [facility] CPT-62805 Level 3 New Patient 16:22:01 COIN TELLER Adam Yates MD [facility] CPT-99360 Level 4 Est. Patient 17:00:48 CDT Kylie boyd [facility] CPT-45831 Level 3 Est. Patient 13:15:54 CDT Kylie boyd [facility] CPT-99821 Level 3 Est. Patient 09:10:11 CDT Kylie boyd [facility] CPT-04205 Level 4 Est. Patient 12:08:30 COIN TELLER Hope cohn MD [facility] CPT-75653 Level 4 Est. Patient 19:08:42 COIN TELLER Hope cohn MD [facility] CPT-14511 Level 4 Est. Patient 20:04:51 CDT Hope cohn MD [facility] CPT-59953 Level 3 New Patient 01:46:11 COIN TELLER Hope landers MD PhD [facility] Procedures Code Procedure Name Date Entry Date Standard Desc ription CPT-73825 First Vx - Ix admin for Medicare patients 02/08 10:02:45 CDT CPT-96237 Fluzone Quadrivalent Intramuscular Suspe nsion 0.5 ML 10:02:45 CDT CPT-43961 Magnesium - LAB USE ONLY 09:41:00 CDT 12/09 CPT-52950 Renal Panel - LAB USE ONLY 09:41:00 CDT 201 09/17/01 CPT-23820 Venipuncture Draw Fee 09:41:00 CDT CPT-68926 Calcium - LAB USE ONLY 17:25:11 CDT CPT-J0897 Prolia 60 mg 15:10:59 CDT CPT-49818 Abx/Therapy Injection 15:10:59 CDT CPT-G0439 MC Subsequent Annual Wellness Exam 14:29:19 CDT CPT-85520 Venipuncture Draw Fee 10:59:04 CDT CPT-00477 CMP - LAB USE ONLY 10:59:04 CDT CPT-14846 CBC with Diff - LAB USE ONLY 10:59:03 CDT 2 CPT-J0897 Prolia 60 mg 15:46:54 COIN TELLER CPT-80191 Abx/Therapy Injection 15:46:54 COIN TELLER CPT-20093 Microalbumin - LAB USE ONLY 09:41:32 COIN TELLER 20 23/01/15 CPT-87937 Free T4 - LAB USE ONLY 09:41:32 COIN TELLER CPT-26777 TSH - LAB USE ONLY 09:41:32 COIN TELLER CPT-47579 BMP - LAB USE ONLY 09:41:32 COIN TELLER CPT-96407 Venipuncture Draw Fee 09:41:32 COIN TELLER CPT-34678 First Vx - Ix admin for Medicare patients 11:19:30 CDT CPT-62966 Fluzone High-Dose Intramuscular Suspension 12/07 11:19:30 CDT CPT-J0897 Prolia 60 mg 14:55:42 CDT CPT-03502 Abx/Therapy Injection 14:55:42 CDT CPT-71005 Bone Density - XRAY USE ONLY 10:27:12 CDT 2 CPT-G0439 MC Subsequent Annual Wellness Exam 17:54:53 CDT CPT-75565 Foot, left, comp min 3V - XRAY USE ONLY 12:22:49 CDT CPT-G0009 Administration of Pneumococcal Vaccine 3 12:18:00 CDT CPT-62533 Pneumovax 23 Injection Injectable 25 MCG /0.5ML 12:18:00 CDT CPT-J0897 Prolia 60 mg 14:14:16 COIN TELLER CPT-56426 Abx/Therapy Injection 14:14:15 COIN TELLER CPT-52959 Lipid - LAB USE ONLY 10:01:52 COIN TELLER 2 CPT-79175 Calcium - LAB USE ONLY 10:01:51 COIN TELLER CPT-52022 Venipuncture Draw Fee 10:01:51 COIN TELLER CPT-LR Lesion Removal 16:22:01 COIN TELLER CPT-78848 TSH - LAB USE ONLY 14:26:02 CDT CPT-24790 CMP - LAB USE ONLY 14:26:01 CDT CPT-45059 CBC with Diff - LAB USE ONLY 14:26:01 CDT 2 CPT-39714 Venipuncture Draw Fee 14:26:01 CDT CPT-99672 First Vx - Ix admin for Medicare patients 13:27:08 CDT CPT-52785 Fluzone High-Dose Intramuscular Suspension 11/26 13:27:08 CDT CPT-G0438 Initial Annual Wellness Exam 14:19:57 CD T CPT-G0009 Administration of Pneumococcal Vaccine 9 11:36:25 CDT CPT-92308 Prevnar 13 Intramuscular Suspension 1 1:36:25 CDT CPT-11698 Prevnar 13 Intramuscular Suspension 1 0:40:58 CDT CPT-J0897 Prolia 60 mg 10:37:16 CDT CPT-69044 Abx/Therapy Injection 10:37:16 CDT CPT-J0897 Prolia 60 mg 16:09:34 COIN TELLER CPT-J0897 Prolia 60 mg 11:10:35 COIN TELLER CPT-31107 Abx/Therapy Injection 11:10:35 COIN TELLER CPT-000 Give Appropriate Flu Vaccine 17:01:15 COIN TELLER 2 CPT-03413 Fluzone High Dose (65+) 15:03:08 COIN TELLER 02/15 CPT-05144 Immunization Single Admin 15:03:08 COIN TELLER 2014 CPT-OV Office Visit 15:58:06 CDT CPT-J0897 Prolia 60 mg 08:45:38 CDT CPT-02603 Abx/Therapy Injection 08:45:38 CDT CPT-J3420 Vitamin B12 1000mcg (Cyanocobalamin) 09:26:20 COIN TELLER CPT-73689 Abx/Therapy Injection 09:26:20 COIN TELLER CPT-J3420 Vitamin B12 1000mcg (Cyanocobalamin) 09:44:40 COIN TELLER CPT-81276 Abx/Therapy Injection 09:44:40 COIN TELLER CPT-J3420 Vitamin B12 1000mcg (Cyanocobalamin) 09:15:54 COIN TELLER CPT-76757 Abx/Therapy Injection 09:15:54 COIN TELLER CPT-J3420 Vitamin B12 1000mcg (Cyanocobalamin) 09:46:44 COIN TELLER CPT-03488 Abx/Therapy Injection 09:46:44 COIN TELLER CPT-J3420 Vitamin B12 1000mcg (Cyanocobalamin) 09:47:34 COIN TELLER CPT-20351 Abx/Therapy Injection 09:47:34 COIN TELLER CPT-J3420 Vitamin B12 1000mcg (Cyanocobalamin) 14:35:50 COIN TELLER CPT-J3420 Vitamin B12 1000mcg (Cyanocobalamin) 09:25:05 COIN TELLER CPT-59178 Abx/Therapy Injection 09:25:05 COIN TELLER CPT-G0008 Administration of Influenza Virus Vaccine 13:36:47 CDT CPT-92528 Fluzone High-Dose Intramuscular Suspension 11/15 13:36:47 CDT CPT-J0897 Prolia 60 mg 08:50:41 CDT CPT-34034 Abx/Therapy Injection 08:50:41 CDT CPT-03644 Bone Density 12:06:12 CDT CPT-73164 Bone Density 08:54:40 CDT CPT-OV Office Visit 15:37:02 CDT CPT-06723 Postop F/U Visit 15:47:49 CDT CPT-46905 Postop F/U Visit 15:21:02 CDT CPT-TCMH Transitional Care Mgmt-High 07:52:27 CDT 20 20/06/01 CPT-85986 Venipuncture Draw Fee 13:51:18 CDT CPT-98612 Venipuncture Draw Fee 10:14:55 COIN TELLER CPT-75131 Venipuncture Draw Fee 13:39:45 COIN TELLER CPT-OV Office Visit 15:11:22 COIN TELLER CPT-32221 Venipuncture Draw Fee 09:20:49 COIN TELLER CPT-74118 Venipuncture Draw Fee 16:52:15 COIN TELLER CPT-35823 Venipuncture Draw Fee 10:37:24 COIN TELLER CPT-97628 Venipuncture Draw Fee 08:21:21 COIN TELLER CPT-68126 Venipuncture Draw Fee 08:30:20 COIN TELLER CPT-64467 Venipuncture Draw Fee 14:53:21 COIN TELLER CPT-63130 Venipuncture Draw Fee 09:40:56 COIN TELLER CPT-56164 Venipuncture Draw Fee 10:30:47 COIN TELLER CPT-58902 Venipuncture Draw Fee 10:46:17 COIN TELLER CPT-72661 Venipuncture Draw Fee 11:12:45 COIN TELLER CPT-26962 Venipuncture Draw Fee 09:53:33 COIN TELLER CPT-79498 Venipuncture Draw Fee 11:53:51 COIN TELLER CPT-17415 Venipuncture Draw Fee 10:33:50 COIN TELLER CPT-50058 Venipuncture Draw Fee 10:05:01 COIN TELLER CPT-79211 Venipuncture Draw Fee 14:32:52 COIN TELLER CPT-91968 Venipuncture Draw Fee 09:46:13 COIN TELLER CPT-95267 Venipuncture Draw Fee 11:34:27 COIN TELLER CPT-02417 Venipuncture Draw Fee 13:17:16 COIN TELLER CPT-71812 Venipuncture Draw Fee 12:05:39 CDT CPT-00037 Venipuncture Draw Fee 12:49:12 CDT CPT-34871 Venipuncture Draw Fee 12:37:18 CDT CPT-87636 Venipuncture Draw Fee 10:57:11 CDT CPT-19779 Venipuncture Draw Fee 13:47:40 CDT CPT-41606 Venipuncture Draw Fee 10:02:17 CDT CPT-26802 TB Tubersol 17:32:32 CDT CPT-OV Office Visit 16:21:53 CDT CPT-OV Office Visit 15:49:22 CDT CPT-OV Office Visit 17:16:31 CDT CPT-OV Office Visit 10:43:31 CDT
--- OUTSIDE RECORDS SUMMARY | 2019-02-09 12:09 | XMS REPORT | Clinical Summary ---
Author Author Admin, Florecita Munoz Organization [facility] Address Unknown Phone Unavailable Allergies, Adverse Reactions, [...] Sebaceous cyst, scalp 706.2 Resolved Kylie Yokum MITER GRINDER OPERATOR Sebaceous cyst Cervical lymphadenopathy, anterior, left 785.6 Resolv ed Kylie Yokum MITER GRINDER OPERATOR Enlargement of lymph nodes Need for prophylactic vaccination and inoculation against in fluenza V04.81 Resolved Adam Yates MD Need for prophylactic vaccination and inoculation against influenza Preventive health care V70.0 Resolved Kylie Yoku m MITER GRINDER OPERATOR Routine general medical examination at a health care facility Thyroid nodule, left 241.0 Active Kylie Yokum A PRN Nontoxic uninodular goiter Screening mammogram V76.12 Resolved Kylie Yokum A PRN Other screening mammogram Mandy 706.2 Resolved Kylie Yokum MITER GRINDER OPERATOR Sebaceous cyst Colon cancer, ascending 153.6 Resolved Kylie Yok um MITER GRINDER OPERATOR Malignant neoplasm of ascending colon Foot pain, left 729.5 Resolved Kylie Yokum MITER GRINDER OPERATOR Pain in limb Splinter 919.6 Resolved Kylie Yokum MITER GRINDER OPERATOR Superficial foreign body (splinter) of other, multiple, and unspecified sites, without major open wound and without mention of infection Rash 782.1 Resolved Kylie Yokum MITER GRINDER OPERATOR Rash and other nonspecific skin eruption Cyst 706.2 Resolved Kylie Yokum MITER GRINDER OPERATOR Sebaceous cyst Body Mass Index 23.0-23.9 Adult Active Kylie Yokum MITER GRINDER OPERATOR Body Mass Index between 19-24, adult Unspecified fall, initial encounter E888.9 Inactive Kylie Holt MITER GRINDER OPERATOR Unspecified fall Eye pain, left 379.91 Inactive Kylie Holt MITER GRINDER OPERATOR Pain in or around eye Pharyngitis, acute 074.0 Active Kylie Holt APR N Herpangina Chronic kidney disease stage 2 585.2 Active Rosemaire Gresham RN Chronic kidney disease, Stage II (mild) Hypomagnesemia 275.2 Active Rosemarie Gresham RN Disorders of magnesium metabolism Hypokalemia 276.8 Active Rosemarie Gresham RN Hypopotassemia ABDOMINAL PAIN, RIGHT LOWER QUADRANT ICD-789.03 Inactive Kina Joshua MITER GRINDER OPERATOR ADENOCARCINOMA, COLON, 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 Dick Yates MD ABDOMINAL PAIN, GENERALIZED ICD-789.07 Inactive Hope Benavidez MD PhD FEVER UNSPECIFIED ICD-780.60 Inactive Hope cohn MD PhD UNSPECIFIED VENOUS INSUFFICIENCY ICD-459.81 [place] ctive Adam Yates MD ADENOCARCINOMA, 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 Inac tive Hope Benavidez MD PhD Hyperkalemia ICD-276.7 Inactive Hope Benavidez MD PhD GERD ICD-530.81 Inactive Kylie Holt MITER GRINDER OPERATOR 2015 Health maintenance exam ICD-V70.0 Bam Yates MD Anemia ICD-285.9 Inactive Kylie Holt MITER GRINDER OPERATOR 07/24 Hypomagnesemia ICD-275.2 Inactive Kylie Yokum MITER GRINDER OPERATOR Aftercare following surgery of the teeth,oral cavity [...] cyst, scalp ICD-706.2 Inactive Tracy hi Yokum MITER GRINDER OPERATOR Cervical lymphadenopathy, anterior, left ICD-785.6 Inactive Kylie Yokum MITER GRINDER OPERATOR Need for prophylactic vaccination and inoculation against in fluenza ICD-V04.81 Inactive Adam Yates MD Preventive health care ICD-V70.0 Inactive Ka thi Yokum MITER GRINDER OPERATOR Screening mammogram ICD-V76.12 Inactive Kylie Yokum MITER GRINDER OPERATOR Mandy ICD-706.2 Inactive Kylie Yokum MITER GRINDER OPERATOR 07/20 Colon cancer, ascending ICD-153.6 Inactive K athi Yokum MITER GRINDER OPERATOR Foot pain, left ICD-729.5 Inactive Kylie Yokum MITER GRINDER OPERATOR Splinter ICD-919.6 Inactive Kylie Holt MITER GRINDER OPERATOR 2017 Rash ICD-782.1 Inactive Kylie Holt MITER GRINDER OPERATOR 07/25 Cyst ICD-706.2 Inactive Kylie Holt MITER GRINDER OPERATOR 08/11 Unspecified fall, initial encounter ICD-E888.9 Inactive Kylie Holt MITER GRINDER OPERATOR Weakness ICD-780.79 Inactive Hope Lopez Eye pain, left ICD-379.91 Inactive Kylie Holt MITER GRINDER OPERATOR Medication List Medication Instructions Start Date Stop Date Generic Name NDC Status Provider Patient Instruction IMODIUM A-D 2 MG ORAL TABLET 1 tablet twice a day LOPERAMIDE HCL 90610040116 Active Kylie Holt APRN Active VOLTAREN 1 % TRANSDERMAL GEL apply q 6-8 hour to left arm as needed for pain DICLOFENAC SODIUM 58473587917 Active Kylie Holt APRN Active COQ10 100 MG ORAL CAPSULE 1 daily COENZYME Q10 179652 58348 Active LETY [place] Active VITAMIN D3 2000 UNIT ORAL CAPSULE [place]aleuca-One daily CHOLECALCIFEROL 25318379502 Active Kylie Holt APRN Active PROBIOTIC DAILY ORAL CAPSULE Take one daily PROBIO TIC PRODUCT 57622600382 Active Kylie Holt APRN Active IRON 325 (65 Fe) MG ORAL TABLET 1 every other day FERROUS SULFATE 73795633805 No Longer Active Kylie Holt APRN Active FLORANEX ORAL PACKET 1 pack three times daily, for bowel health LACTOBACILLUS 27688710641 No Longer Active Kylie Holt APRN Active LOMOTIL 2.5-0.025 MG ORAL TABLET 1 tab by mouth prn 20 23/10/23 DIPHENOXYLATE-ATROPINE 03453445887 No Longer Active Kylie Yokum MITER GRINDER OPERATOR Active MAGNESIUM GLUCONATE 250 MG ORAL TABLET 1 tab tid 23/10/23 MAGNESIUM GLUCONATE 50241481505 No Longer Active Kylie Lundum MITER GRINDER OPERATOR Active CYANOCOBALAMIN 1000 MCG/ML INJECTION SOLUTION 1 injection ev ruben 2 weeks CYANOCOBALAMIN 51757165854 No Longer Active Kylie Yok um MITER GRINDER OPERATOR Active ATENOLOL 25 MG ORAL TABLET 1/2 pill by mouth daily, fo r headaches, blood pressure ATENOLOL 96216609009 Active Kylie Yokum MITER GRINDER OPERATOR Active PROPRANOLOL HCL 80 MG ORAL TABLET 1 tab tue. and thur. PROPRANOLOL HCL 57251016139 No Longer Active Hope Benavidez MD PhD A ctive VITAMIN D3 4000 IU 1 tab 3 times daily VITAMIN D3 4000 IU No Longer Active Hope Benavidez MD PhD Active BACTRIM DS 800-160 MG ORAL TABLET 1 pill by mouth twice claudio y, for UTI SULFAMETHOXAZOLE-TRIMETHOPRIM 51498931194 No Longer Active Hope Benavidez MD PhD Active PROLIA 60 MG/ML SUBCUTANEOUS SOLUTION 1 shot every 6 months for osteoprosis DENOSUMAB 76917106103 Active Hope Benaviedz MD PhD Active CALCIUM + D + K 750-500-40 MG-UNT-MCG ORAL TABLET 1 tab by m out twice daily CALCIUM-VITAMIN D-VITAMIN K 63234057486 Active Hope valdez MD PhD Active DAILY VALUE MULTIVITAMIN ORAL TABLET 1 tab by mouth twice daily 201 05/16/14 MULTIPLE VITAMIN 24234202802 Active Hope Benavidez MD PhD Acti ve FISH OIL 306 MG CAPS 1 tab by mouth three times daily OMEGA-3 FATTY ACIDS 61541789618 Active Hope Benavidez MD PhD Active LUTEIN 10 MG ORAL TABLET 1 tab daily LUTEIN 90502348 408 Active Hope Benavidez MD PhD Active TRIAMTERENE-HCTZ 37.5-25 MG ORAL TABLET 1 tab by mouth daily 10/22 TRIAMTERENE-HCTZ 64591866693 Active Kylie Lundum MITER GRINDER OPERATOR Active CYCLOBENZAPRINE HCL 10 MG ORAL TABLET 1 tablet by mout three times daily as needed for headaches CYCLOBENZAPRINE HCL 98586566363 No Longer Active Adam Yates MD Active OMEPRAZOLE 20 MG ORAL CAPSULE DELAYED RELEASE 1 tablet by mo [facility] daily for GERD OMEPRAZOLE 36248893510 No Longer Active Adam Yates MD Active ZOFRAN 8 MG ORAL TABLET 1 tab by mouth every 12 hours prn 4 ONDANSETRON HCL 55084085478 No Longer Active Adam Yates MD Active PHENADOZ 25 MG RECTAL SUPPOSITORY 1 every 4 hrs. PRN 2 PROMETHAZINE HCL 09193216968 No Longer Active Adam Yates MD A ctive POTASSIUM CHLORIDE 20 MEQ ORAL PACKET by mouth twice a day prn 2 POTASSIUM CHLORIDE 84470134354 No Longer Active Adam Carpenter MD Active PROMETHAZINE HCL 25 MG ORAL TABLET 1 Q. 4 hr. PRN PROMETHAZINE HCL 15349618262 No Longer Active Adam Yates MD Active INNOPRAN XL 120 MG ORAL CAPSULE EXTENDED RELEASE 24 HO UR Take one by mouth daily PROPRANOLOL HCL SR BEADS 53366650730 No Longer Active Adam Yates MD Active FLAGYL 500 MG ORAL TABLET 1 pill by mouth three times daily, for diarrhea METRONIDAZOLE 41534061554 No Longer Active Hope landers MD PhD Active DYAZIDE 37.5-25 MG ORAL CAPSULE 1 qd TRIA MTERENE-HCTZ 39261503961 No Longer Active Hope Benavidez MD PhD Active PROZAC 20 MG ORAL CAPSULE 1 q d FLUOXETINE HCL 70727061888 No Longer Active Hope Benavidez MD PhD Active SIMVASTATIN 40 MG ORAL TABLET 1 qd SIMVAS TATIN 74990418772 No Longer Active Adam Yates MD Active MELOXICAM 15 MG ORAL TABLET 1 qd MELOXICAM 72212555000 No Longer Active Adam Yates MD Active EXCEDRIN EXTRA STRENGTH 250-250-65 MG ORAL TABLET 1-2 q6h ME N headache [id number] 43003404316 Active Hope Benavidez MD PhD Active FLAGYL 500 MG ORAL TABLET 1 qid METRONIDAZOL E 57972708872 No Longer Active Adam Yates MD Active LEVAQUIN 750 MG ORAL TABLET 1 qd LEVOFLOXAC IN 05886729752 No Longer Active Adam Yates MD Active ADULT ASPIRIN LOW STRENGTH 81 MG ORAL TABLET DISINTEGRATING 1 qd ASPIRIN 06542295642 Active Hope Benavidez MD PhD Active LEVAQUIN 750 MG ORAL TABLET 1 qd LEVAQUIN 750 MG ORAL TABLET 411824 LEVOFLOXACIN Inactive FLAGYL 500 MG ORAL TABLET 1 qid FLAGYL 500 MG ORAL TABLET 033710 METRONIDAZOLE Inactive MELOXICAM 15 MG ORAL TABLET 1 qd MELOXICAM 15 MG ORAL TABLET 102421 MELOXICAM Inactive SIMVASTATIN 40 MG ORAL TABLET 1 qd SIMVASTATIN 40 MG ORAL TABLET 015993 SIMVASTATIN Inactive PROZAC 20 MG ORAL CAPSULE 1 q d PROZAC 20 MG ORAL CAPSULE 326309 FLUOXETINE HCL Inactive DYAZIDE 37.5-25 MG ORAL CAPSULE 1 qd 5 DYAZIDE 37.5-25 MG ORAL CAPSULE 128561 TRIAMTERENE-HCTZ Inactive INNOPRAN XL 120 MG ORAL CAPSULE EXTENDED RELEASE 24 HO UR Take one by mouth daily INNOPRAN XL 120 MG ORAL CAPSULE EXTENDED RELEASE 24 HOUR PROPRANOLOL HCL SR BEADS Inactive PROMETHAZINE HCL 25 MG ORAL TABLET 1 Q. 4 hr. PRN 2013 PROMETHAZINE HCL 25 MG ORAL TABLET 991281 PROMETHAZINE HCL Inactive POTASSIUM CHLORIDE 20 MEQ ORAL PACKET by mouth twice a day prn 2 POTASSIUM CHLORIDE 20 MEQ ORAL PACKET 2021395 POTASSIUM CHLORIDE Inactive PHENADOZ 25 MG RECTAL SUPPOSITORY 1 every 4 hrs. PRN 2 PHENADOZ 25 MG RECTAL SUPPOSITORY 325410 PROMETHAZINE HCL Inactive ZOFRAN 8 MG ORAL TABLET 1 tab by mouth every 12 hours prn 4 ZOFRAN 8 MG ORAL TABLET 618601 ONDANSETRON HCL Inactive OMEPRAZOLE 20 MG ORAL CAPSULE DELAYED RELEASE 1 tablet by mo uth daily for GERD OMEPRAZOLE 20 MG ORAL CAPSULE DELAYED RELEASE 19 8051 OMEPRAZOLE Inactive CYCLOBENZAPRINE HCL 10 MG ORAL TABLET 1 tablet by mout h three times daily as needed for headaches CYCLOBENZAPRINE HCL 10 MG ORAL TABLET 035941 CYCLOBENZAPRINE HCL Inactive VITAMIN D3 4000 IU 1 tab 3 times daily VITAMIN D3 4000 IU Inactive PROPRANOLOL HCL 80 MG ORAL TABLET 1 tab tue. and thur. PROPRANOLOL HCL 80 MG ORAL TABLET 775139 PROPRANOLOL HCL Inacti ve CYANOCOBALAMIN 1000 MCG/ML INJECTION SOLUTION 1 injection ev ruben 2 weeks CYANOCOBALAMIN 1000 MCG/ML INJECTION SOLUTION 30 9594 CYANOCOBALAMIN Inactive MAGNESIUM GLUCONATE 250 MG ORAL TABLET 1 tab tid 20 23/10/23 MAGNESIUM GLUCONATE 250 MG ORAL TABLET 868398 MAGNESIUM GLUCONATE Inactive LOMOTIL 2.5-0.025 MG ORAL TABLET 1 tab by mouth prn 20 23/10/23 LOMOTIL 2.5-0.025 MG ORAL TABLET 2960525 DIPHENOXYLATE-ATROPINE Inac tive FLORANEX ORAL PACKET 1 pack three times daily, for bowel health FLORANEX ORAL PACKET 83768450608 LACTOBACILLUS Inactive IRON 325 (65 Fe) MG ORAL TABLET 1 every other day 2015 IRON 325 (65 Fe) MG ORAL TABLET 256861 FERROUS SULFATE Inactive FLAGYL 500 MG ORAL TABLET 1 pill by mouth three times daily, for diarrhea FLAGYL 500 MG ORAL TABLET 194286 METRONIDAZOLE I nactive BACTRIM DS 800-160 MG ORAL TABLET 1 pill by mouth twice claudio y, for UTI BACTRIM DS 800-160 MG ORAL TABLET 612434 SULFAMETHOXAZOLE-TRIMETHOPRIM Inactive Advance Directives Directive Description Start [...] 4.0 mmol/L 3.5-5.2 sodium, serum 138 mmol/L 249-588 8088/12/15 thyroxine, serum, free 0.85 ng/dL 0.59-1.17 TSH 1.11 m[iU]/mL 0.36-3.74 creatinine, serum 1.09 mg/dL 0.60-1.30 urea nitrogen, blood 23 mg/dL 7-18 calcium, serum 9.1 mg/dL 8.5-10.1 Lab Report: Basic Metabolic Panel, Thyro id Stimulating Hormone (L), Free ... - Lab microalbumin, urine 10 mg/L 0-19 Lab Report: Calcium - Chemistry calcium, serum 9.1 mg/dL 8.5-10.1 Lab Report: CEA - Serology carcinoembryonic antigen 0.6 ng/mL Lab Report: Comp. Metabolic Panel - Chem istry carbon dioxide, venous blood 30.2 mmol/L 21.0-32 .0 potassium, serum 3.8 mmol/L 3.5-5.2 chloride, serum 101 mmol/L 98-107 blood glucose 97 mg/dL 65-110 urea nitrogen, blood 23 mg/dL 7-18 creatinine, serum 1.33 mg/dL 0.60-1.30 alanine aminotransferase (SGPT), serum 27 U/L 12-78 aspartate aminotransferase (SGOT), serum 24 U/L 15-37 calcium, serum 9.4 mg/dL 8.5-10.1 bilirubin, serum, total 0.80 mg/dL 0.00-1.00 sodium, serum 142 mmol/L 136-145 Office Visit: [facility] - SUB - Basic LDL target level 130 mg/dL Office Visit: [facility] - SUB - Chemistry HDL cholesterol, serum, target level 40 mg/dL cholesterol, target level 200 mg/dL triglyceride, target level 150 mg/dL Encounters Code Encounter Date Provider Facility CPT-37945 [id number] Vst-Est Level III 14:29:19 CDT Fiorella Holt [facility] [place] CPT-53283 Level 2 Est. Patient 14:58:26 CDT Kylie Lund [facility] [place] CPT-48030 Level 3 Est. Patient 08:15:24 RANGE CONSERVATIONIST Kylie Lund [facility] [place] CPT-96357 Level 2 Est. Patient 14:27:16 RANGE CONSERVATIONIST Kylie boyd [facility] [place] CPT-78813 Level 3 Est. Patient 17:54:48 CDT Kylie boyd [facility] [place] CPT-31736 Level 3 Est. Patient 16:26:30 CDT Kina blackmon [facility] CPT-53938 Level 3 New Patient 16:22:01 RANGE CONSERVATIONIST Adam Yates [facility] CPT-75307 Level 4 Est. Patient 17:00:48 CDT Kylie Yok [facility] [place] CPT-08201 Level 3 Est. Patient 13:15:54 CDT Kylie Lund [facility] CPT-24706 Level 3 Est. Patient 09:10:11 CDT Kylie Lund [facility] CPT-34408 Level 4 Est. Patient 12:08:30 RANGE CONSERVATIONIST Hope cohn MD [facility] CPT-48450 Level 4 Est. Patient 19:08:42 RANGE CONSERVATIONIST Hope cohn MD [facility] CPT-43985 Level 4 Est. Patient 20:04:51 CDT Hope cohn MD [facility] CPT-28747 Level 3 New Patient 01:46:11 RANGE CONSERVATIONIST Hope landers MD [facility] Procedures Code Procedure Name Date Entry Date Standard Desc ription CPT-61030 First Vx - Ix admin for Medicare patients 02/08 10:02:45 CDT CPT-13028 Fluzone Quadrivalent Intramuscular Suspe nsion 0.5 ML 10:02:45 CDT CPT-18379 Magnesium - LAB USE ONLY 09:41:00 CDT 12/09 CPT-93680 Renal Panel - LAB USE ONLY 09:41:00 CDT 201 09/17/01 CPT-49222 Venipuncture Draw Fee 09:41:00 CDT CPT-24858 Calcium - LAB USE ONLY 17:25:11 CDT CPT-J0897 Prolia 60 mg 15:10:59 CDT CPT-66121 Abx/Therapy Injection 15:10:59 CDT CPT-G0439 [facility] Annual Wellness Exam 14:29:19 CDT CPT-07488 Venipuncture Draw Fee 10:59:04 CDT CPT-00613 CMP - LAB USE ONLY 10:59:04 CDT CPT-34057 CBC with Diff - LAB USE ONLY 10:59:03 CDT 2 CPT-J0897 Prolia 60 mg 15:46:54 RANGE CONSERVATIONIST CPT-25260 Abx/Therapy Injection 15:46:54 RANGE CONSERVATIONIST CPT-89735 Microalbumin - LAB USE ONLY 09:41:32 RANGE CONSERVATIONIST 20 23/01/15 CPT-06790 Free T4 - LAB USE ONLY 09:41:32 RANGE CONSERVATIONIST CPT-03654 TSH - LAB USE ONLY 09:41:32 RANGE CONSERVATIONIST CPT-70087 BMP - LAB USE ONLY 09:41:32 RANGE CONSERVATIONIST CPT-63684 Venipuncture Draw Fee 09:41:32 RANGE CONSERVATIONIST CPT-41804 First Vx - Ix admin for Medicare patients 11:19:30 CDT CPT-09744 Fluzone High-Dose Intramuscular Suspension 12/07 11:19:30 CDT CPT-J0897 Prolia 60 mg 14:55:42 CDT CPT-29080 Abx/Therapy Injection 14:55:42 CDT CPT-57620 Bone Density - XRAY USE ONLY 10:27:12 CDT 2 CPT-G0439 Subsequent Annual Wellness Exam 17:54:53 CDT CPT-25735 Foot, left, comp min 3V - XRAY USE ONLY 12:22:49 CDT CPT-G0009 Administration of Pneumococcal Vaccine 3 12:18:00 CDT CPT-67977 Pneumovax 23 Injection Injectable 25 MCG /0.5ML 12:18:00 CDT CPT-J0897 Prolia 60 mg 14:14:16 RANGE CONSERVATIONIST CPT-74887 Abx/Therapy Injection 14:14:15 RANGE CONSERVATIONIST CPT-72364 Lipid - LAB USE ONLY 10:01:52 RANGE CONSERVATIONIST 2 CPT-05246 Calcium - LAB USE ONLY 10:01:51 RANGE CONSERVATIONIST CPT-35198 Venipuncture Draw Fee 10:01:51 RANGE CONSERVATIONIST CPT-LR Lesion Removal 16:22:01 RANGE CONSERVATIONIST CPT-91299 TSH - LAB USE ONLY 14:26:02 CDT CPT-15115 CMP - LAB USE ONLY 14:26:01 CDT CPT-29973 CBC with Diff - LAB USE ONLY 14:26:01 CDT 2 CPT-78727 Venipuncture Draw Fee 14:26:01 CDT CPT-96154 First Vx - Ix admin for Medicare patients 13:27:08 CDT CPT-56552 Fluzone High-Dose Intramuscular Suspension 11/26 13:27:08 CDT CPT-G0438 Initial Annual Wellness Exam 14:19:57 CD T CPT-G0009 Administration of Pneumococcal Vaccine 9 11:36:25 CDT CPT-77187 Prevnar 13 Intramuscular Suspension 1 1:36:25 CDT CPT-85480 Prevnar 13 Intramuscular Suspension 1 0:40:58 CDT CPT-J0897 Prolia 60 mg 10:37:16 CDT CPT-93873 Abx/Therapy Injection 10:37:16 CDT CPT-J0897 Prolia 60 mg 16:09:34 RANGE CONSERVATIONIST CPT-J0897 Prolia 60 mg 11:10:35 RANGE CONSERVATIONIST CPT-87433 Abx/Therapy Injection 11:10:35 RANGE CONSERVATIONIST CPT-000 Give Appropriate Flu Vaccine 17:01:15 RANGE CONSERVATIONIST 2 CPT-71891 Fluzone High Dose (65+) 15:03:08 RANGE CONSERVATIONIST 02/15 CPT-75991 Immunization Single Admin 15:03:08 RANGE CONSERVATIONIST 2014 CPT-OV Office Visit 15:58:06 CDT CPT-J0897 Prolia 60 mg 08:45:38 CDT CPT-98724 Abx/Therapy Injection 08:45:38 CDT CPT-J3420 Vitamin B12 1000mcg (Cyanocobalamin) 09:26:20 RANGE CONSERVATIONIST CPT-35181 Abx/Therapy Injection 09:26:20 RANGE CONSERVATIONIST CPT-J3420 Vitamin B12 1000mcg (Cyanocobalamin) 09:44:40 RANGE CONSERVATIONIST CPT-30595 Abx/Therapy Injection 09:44:40 RANGE CONSERVATIONIST CPT-J3420 Vitamin B12 1000mcg (Cyanocobalamin) 09:15:54 RANGE CONSERVATIONIST CPT-63644 Abx/Therapy Injection 09:15:54 RANGE CONSERVATIONIST CPT-J3420 Vitamin B12 1000mcg (Cyanocobalamin) 09:46:44 RANGE CONSERVATIONIST CPT-10790 Abx/Therapy Injection 09:46:44 RANGE CONSERVATIONIST CPT-J3420 Vitamin B12 1000mcg (Cyanocobalamin) 09:47:34 RANGE CONSERVATIONIST CPT-89804 Abx/Therapy Injection 09:47:34 RANGE CONSERVATIONIST CPT-J3420 Vitamin B12 1000mcg (Cyanocobalamin) 14:35:50 RANGE CONSERVATIONIST CPT-J3420 Vitamin B12 1000mcg (Cyanocobalamin) 09:25:05 RANGE CONSERVATIONIST CPT-48481 Abx/Therapy Injection 09:25:05 RANGE CONSERVATIONIST CPT-G0008 Administration of Influenza Virus Vaccine 13:36:47 CDT CPT-22688 Fluzone High-Dose Intramuscular Suspension 11/15 13:36:47 CDT CPT-J0897 Prolia 60 mg 08:50:41 CDT CPT-39533 Abx/Therapy Injection 08:50:41 CDT CPT-91929 Bone Density 12:06:12 CDT CPT-29340 Bone Density 08:54:40 CDT CPT-OV Office Visit 15:37:02 CDT CPT-86966 Postop F/U Visit 15:47:49 CDT CPT-18187 Postop F/U Visit 15:21:02 CDT CPT-TCMH Transitional Care Mgmt-High 07:52:27 CDT 20 20/06/01 CPT-67465 Venipuncture Draw Fee 13:51:18 CDT CPT-40474 Venipuncture Draw Fee 10:14:55 RANGE CONSERVATIONIST CPT-04823 Venipuncture Draw Fee 13:39:45 RANGE CONSERVATIONIST CPT-OV Office Visit 15:11:22 RANGE CONSERVATIONIST CPT-01762 Venipuncture Draw Fee 09:20:49 RANGE CONSERVATIONIST CPT-13388 Venipuncture Draw Fee 16:52:15 RANGE CONSERVATIONIST CPT-26158 Venipuncture Draw Fee 10:37:24 RANGE CONSERVATIONIST CPT-54371 Venipuncture Draw Fee 08:21:21 RANGE CONSERVATIONIST CPT-09522 Venipuncture Draw Fee 08:30:20 RANGE CONSERVATIONIST CPT-78155 Venipuncture Draw Fee 14:53:21 RANGE CONSERVATIONIST CPT-73286 Venipuncture Draw Fee 09:40:56 RANGE CONSERVATIONIST CPT-04849 Venipuncture Draw Fee 10:30:47 RANGE CONSERVATIONIST CPT-96633 Venipuncture Draw Fee 10:46:17 RANGE CONSERVATIONIST CPT-20159 Venipuncture Draw Fee 11:12:45 RANGE CONSERVATIONIST CPT-24334 Venipuncture Draw Fee 09:53:33 RANGE CONSERVATIONIST CPT-91254 Venipuncture Draw Fee 11:53:51 RANGE CONSERVATIONIST CPT-92605 Venipuncture Draw Fee 10:33:50 RANGE CONSERVATIONIST CPT-67779 Venipuncture Draw Fee 10:05:01 RANGE CONSERVATIONIST CPT-44907 Venipuncture Draw Fee 14:32:52 RANGE CONSERVATIONIST CPT-12863 Venipuncture Draw Fee 09:46:13 RANGE CONSERVATIONIST CPT-10333 Venipuncture Draw Fee 11:34:27 RANGE CONSERVATIONIST CPT-19649 Venipuncture Draw Fee 13:17:16 RANGE CONSERVATIONIST CPT-44302 Venipuncture Draw Fee 12:05:39 CDT CPT-88999 Venipuncture Draw Fee 12:49:12 CDT CPT-83842 Venipuncture Draw Fee 12:37:18 CDT CPT-08567 Venipuncture Draw Fee 10:57:11 CDT CPT-63922 Venipuncture Draw Fee 13:47:40 CDT CPT-81703 Venipuncture Draw Fee 10:02:17 CDT CPT-89404 TB Tubersol 17:32:32 CDT CPT-OV Office Visit 16:21:53 CDT CPT-OV Office Visit 15:49:22 CDT CPT-OV Office Visit 17:16:31 CDT CPT-OV Office Visit 10:43:31 CDT
--- OUTSIDE RECORDS SUMMARY | 2019-02-09 12:09 | XMS REPORT | Clinical Summary ---
Author Author Admin, Florecita Munoz Organization [facility] [place] Address Unknown Phone Unavailable Allergies, Adverse Reactions, [...] MD PhD Diarrhea Diarrhea, functional 564.5 Resolved Seelna Yates MD Functional diarrhea Osteoporosis 733.00 Active [...] Sebaceous cyst, scalp 706.2 Resolved Kylie Yokum INFECTION CONTROL PREVENTIONIST Sebaceous cyst Cervical lymphadenopathy, anterior, left 785.6 Resolv ed Kylie Yokum INFECTION CONTROL PREVENTIONIST Enlargement of lymph nodes Need for prophylactic vaccination and inoculation against in fluenza V04.81 Resolved Adam Yates MD Need for prophylactic vaccination and inoculation against influenza Preventive health care V70.0 Resolved Kylie Yoku m INFECTION CONTROL PREVENTIONIST Routine general medical examination at a health care facility Thyroid nodule, left 241.0 Active Kylie Yokum A PRN Nontoxic uninodular goiter Screening mammogram V76.12 Resolved Kylie Yokum A PRN Other screening mammogram Mandy 706.2 Resolved Kylie Yokum INFECTION CONTROL PREVENTIONIST Sebaceous cyst Colon cancer, ascending 153.6 Resolved Kylie Yok um INFECTION CONTROL PREVENTIONIST Malignant neoplasm of ascending colon Foot pain, left 729.5 Resolved Kylie Yokum INFECTION CONTROL PREVENTIONIST Pain in limb Splinter 919.6 Resolved Kylie Yokum INFECTION CONTROL PREVENTIONIST Superficial foreign body (splinter) of other, multiple, and unspecified sites, without major open wound and without mention of infection Rash 782.1 Resolved Kylie Yokum INFECTION CONTROL PREVENTIONIST Rash and other nonspecific skin eruption Cyst 706.2 Resolved Kylie Yokum INFECTION CONTROL PREVENTIONIST Sebaceous cyst Body Mass Index 23.0-23.9 Adult Active Kylie Yokum INFECTION CONTROL PREVENTIONIST Body Mass Index between 19-24, adult Unspecified fall, initial encounter E888.9 Inactive Kylieshubham Holt INFECTION CONTROL PREVENTIONIST Unspecified fall Eye pain, left 379.91 Inactive Kylie Yokum INFECTION CONTROL PREVENTIONIST Pain in or around eye Pharyngitis, acute 074.0 Active Kylieshubham Lundum APR N Herpangina ABDOMINAL PAIN, RIGHT LOWER QUADRANT ICD-789.03 Inactive Kina Joshua INFECTION CONTROL PREVENTIONIST ADENOCARCINOMA, COLON, 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 Dick Yates MD ABDOMINAL PAIN, GENERALIZED ICD-789.07 Inactive Hope Benavidez MD PhD FEVER UNSPECIFIED ICD-780.60 Inactive Hope cohn MD PhD UNSPECIFIED VENOUS INSUFFICIENCY ICD-459.81 Tennille ctive Adam Yates MD ADENOCARCINOMA, 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 Inac tive Hope Benavidez MD PhD Hyperkalemia ICD-276.7 Inactive Hope Benavidez MD PhD GERD ICD-530.81 Inactive Kylie Lundum INFECTION CONTROL PREVENTIONIST 2015 Health maintenance exam ICD-V70.0 Bam Yates MD Anemia ICD-285.9 Inactive Kylie Polakum INFECTION CONTROL PREVENTIONIST 07/24 Hypomagnesemia ICD-275.2 Inactive Kylie Yokum INFECTION CONTROL PREVENTIONIST Weakness ICD-780.79 Inactive Hope Benavidez MD P [...] cyst, scalp ICD-706.2 Inactive Tracy hi Yokum INFECTION CONTROL PREVENTIONIST Cervical lymphadenopathy, anterior, left ICD-785.6 Inactive Kylie Yokum INFECTION CONTROL PREVENTIONIST Need for prophylactic vaccination and inoculation against in fluenza ICD-V04.81 Inactive Adam Yates MD Preventive health care ICD-V70.0 Inactive Ka thi Yokum INFECTION CONTROL PREVENTIONIST Screening mammogram ICD-V76.12 Inactive Kylie Yokum INFECTION CONTROL PREVENTIONIST Mandy ICD-706.2 Inactive Kylie Yokum INFECTION CONTROL PREVENTIONIST 07/20 Colon cancer, ascending ICD-153.6 Inactive K athi Yokum INFECTION CONTROL PREVENTIONIST Foot pain, left ICD-729.5 Inactive Kylie Yokum INFECTION CONTROL PREVENTIONIST Splinter ICD-919.6 Inactive Kylie Yokum INFECTION CONTROL PREVENTIONIST 2017 Rash ICD-782.1 Inactive Kylie Yokum INFECTION CONTROL PREVENTIONIST 07/25 Cyst ICD-706.2 Inactive Kylie Holt INFECTION CONTROL PREVENTIONIST 08/11 Unspecified fall, initial encounter ICD-E888.9 Inactive Kylie Holt INFECTION CONTROL PREVENTIONIST Eye pain, left ICD-379.91 Inactive Kylie Holt INFECTION CONTROL PREVENTIONIST Medication List Medication Instructions Start Date Stop Date Generic Name ND Status Provider Patient Instruction IMODIUM A-D 2 MG ORAL TABLET 1 tablet twice a day LOPERAMIDE HCL 51272102952 Active Kylie Holt AMY Active VOLTAREN 1 % TRANSDERMAL GEL apply q 6-8 hour to left arm as needed for pain DICLOFENAC SODIUM 12732199277 Active Kylie Holt APRN Active COQ10 100 MG ORAL CAPSULE 1 daily COENZYME Q10 939912 84552 Active LETY Nation Active VITAMIN D3 2000 UNIT ORAL CAPSULE Melaleuca-One daily CHOLECALCIFEROL 11146645705 Active Kylie Holt AMY Active PROBIOTIC DAILY ORAL CAPSULE Take one daily PROBIO TIC PRODUCT 01898158322 Active Kylie Holt AMY Active IRON 325 (65 Fe) MG ORAL TABLET 1 every other day FERROUS SULFATE 90565473345 No Longer Active Kylie Holt APRN Active FLORANEX ORAL PACKET 1 pack three times daily, for bowel health LACTOBACILLUS 09608199829 No Longer Active Kylie Holt AMY Active LOMOTIL 2.5-0.025 MG ORAL TABLET 1 tab by mouth prn 23/10/23 DIPHENOXYLATE-ATROPINE 68700661741 No Longer Active Kylie Lundum INFECTION CONTROL PREVENTIONIST Active MAGNESIUM GLUCONATE 250 MG ORAL TABLET 1 tab tid 23/10/23 MAGNESIUM GLUCONATE 96741014279 No Longer Active Kylie Lundum INFECTION CONTROL PREVENTIONIST Active CYANOCOBALAMIN 1000 MCG/ML INJECTION SOLUTION 1 injection ev ruben 2 weeks CYANOCOBALAMIN 46181277101 No Longer Active Kylie Yok um INFECTION CONTROL PREVENTIONIST Active ATENOLOL 25 MG ORAL TABLET 1/2 pill by mouth daily, fo r headaches, blood pressure ATENOLOL 37387273466 Active Kylie Holt INFECTION CONTROL PREVENTIONIST Active PROPRANOLOL HCL 80 MG ORAL TABLET 1 tab tue. and thur. PROPRANOLOL HCL 92607518274 No Longer Active Hope Benavidez MD PhD A ctive VITAMIN D3 4000 IU 1 tab 3 times daily VITAMIN D3 4000 IU No Longer Active Hope Benavidez MD PhD Active BACTRIM DS 800-160 MG ORAL TABLET 1 pill by mouth twice claudio y, for UTI SULFAMETHOXAZOLE-TRIMETHOPRIM 44571473596 No Longer Active Hope Benavidez MD PhD Active PROLIA 60 MG/ML SUBCUTANEOUS SOLUTION 1 shot every 6 months for osteoprosis DENOSUMAB 02343374279 Active Hope Benavidez MD PhD Active CALCIUM + D + K 750-500-40 MG-UNT-MCG ORAL TABLET 1 tab by m out twice daily CALCIUM-VITAMIN D-VITAMIN K 26127017800 Active Hope valdez MD PhD Active DAILY VALUE MULTIVITAMIN ORAL TABLET 1 tab by mouth twice daily 201 05/16/14 MULTIPLE VITAMIN 45677991188 Active Hope Benavidez MD PhD Acti ve FISH OIL 306 MG CAPS 1 tab by mouth three times daily OMEGA-3 FATTY ACIDS 90975313023 Active Hope Benavidez MD PhD Active LUTEIN 10 MG ORAL TABLET 1 tab daily LUTEIN 09427014 408 Active Hope Benavidez MD PhD Active TRIAMTERENE-HCTZ 37.5-25 MG ORAL TABLET 1 tab by mouth daily 10/22 TRIAMTERENE-HCTZ 18194862242 Active Kylie Escalonagabbioliver INFECTION CONTROL PREVENTIONIST Active CYCLOBENZAPRINE HCL 10 MG ORAL TABLET 1 tablet by mout h three times daily as needed for headaches CYCLOBENZAPRINE HCL 79843024398 No Longer Active Adam Yates MD Active OMEPRAZOLE 20 MG ORAL CAPSULE DELAYED RELEASE 1 tablet by mo uth daily for GERD OMEPRAZOLE 08398133040 No Longer Active Adam Yates MD Active ZOFRAN 8 MG ORAL TABLET 1 tab by mouth every 12 hours prn 4 ONDANSETRON HCL 20655747116 No Longer Active Adam Yates MD Active PHENADOZ 25 MG RECTAL SUPPOSITORY 1 every 4 hrs. PRN 2 PROMETHAZINE HCL 09216444304 No Longer Active Adam Yates MD A ctive POTASSIUM CHLORIDE 20 MEQ ORAL PACKET by mouth twice a day prn 2 POTASSIUM CHLORIDE 14557014557 No Longer Active Adam Carpenter MD Active PROMETHAZINE HCL 25 MG ORAL TABLET 1 Q. 4 hr. PRN PROMETHAZINE HCL 65016449544 No Longer Active Adam Yates MD Active INNOPRAN XL 120 MG ORAL CAPSULE EXTENDED RELEASE 24 HO UR Take one by mouth daily PROPRANOLOL HCL SR BEADS 52558301897 No Longer Active Adam Yates MD Active FLAGYL 500 MG ORAL TABLET 1 pill by mouth three times daily, for diarrhea METRONIDAZOLE 23963535863 No Longer Active Hope landers MD PhD Active DYAZIDE 37.5-25 MG ORAL CAPSULE 1 qd TRIA MTERENE-HCTZ 61232276222 No Longer Active Hope Benavidez MD PhD Active PROZAC 20 MG ORAL CAPSULE 1 q d FLUOXETINE HCL 31791566686 No Longer Active Hope Benavidez MD PhD Active SIMVASTATIN 40 MG ORAL TABLET 1 qd SIMVAS TATIN 95121352676 No Longer Active Adam Yates MD Active MELOXICAM 15 MG ORAL TABLET 1 qd MELOXICAM 55846512493 No Longer Active Adam Yates MD Active EXCEDRIN EXTRA STRENGTH 250-250-65 MG ORAL TABLET 1-2 q6h PA N headache KTRWMMA-GZXADDQLPENQP-MHKEZSUB 15766697077 Active Hope Benavidez MD PhD Active FLAGYL 500 MG ORAL TABLET 1 qid METRONIDAZOL E 05850153280 No Longer Active Adam Yates MD Active LEVAQUIN 750 MG ORAL TABLET 1 qd LEVOFLOXAC IN 93510168539 No Longer Active Adam Yates MD Active ADULT ASPIRIN LOW STRENGTH 81 MG ORAL TABLET DISINTEGRATING 1 qd ASPIRIN 68607429864 Active Hope Benavidez MD PhD Active LEVAQUIN 750 MG ORAL TABLET 1 qd LEVAQUIN 750 MG ORAL TABLET 605734 LEVOFLOXACIN Inactive FLAGYL 500 MG ORAL TABLET 1 qid FLAGYL 500 MG ORAL TABLET 633941 METRONIDAZOLE Inactive MELOXICAM 15 MG ORAL TABLET 1 qd MELOXICAM 15 MG ORAL TABLET 647451 MELOXICAM Inactive SIMVASTATIN 40 MG ORAL TABLET 1 qd SIMVASTATIN 40 MG ORAL TABLET 721137 SIMVASTATIN Inactive PROZAC 20 MG ORAL CAPSULE 1 q d PROZAC 20 MG ORAL CAPSULE 590206 FLUOXETINE HCL Inactive DYAZIDE 37.5-25 MG ORAL CAPSULE 1 qd 5 DYAZIDE 37.5-25 MG ORAL CAPSULE 937296 TRIAMTERENE-HCTZ Inactive INNOPRAN XL 120 MG ORAL CAPSULE EXTENDED RELEASE 24 HO UR Take one by mouth daily INNOPRAN XL 120 MG ORAL CAPSULE EXTENDED RELEASE 24 HOUR PROPRANOLOL HCL SR BEADS Inactive PROMETHAZINE HCL 25 MG ORAL TABLET 1 Q. 4 hr. PRN 2013 PROMETHAZINE HCL 25 MG ORAL TABLET 985093 PROMETHAZINE HCL Inactive POTASSIUM CHLORIDE 20 MEQ ORAL PACKET by mouth twice a day prn 2 POTASSIUM CHLORIDE 20 MEQ ORAL PACKET 9771940 POTASSIUM CHLORIDE Inactive PHENADOZ 25 MG RECTAL SUPPOSITORY 1 every 4 hrs. PRN 2 PHENADOZ 25 MG RECTAL SUPPOSITORY 565696 PROMETHAZINE HCL Inactive ZOFRAN 8 MG ORAL TABLET 1 tab by mouth every 12 hours prn 4 ZOFRAN 8 MG ORAL TABLET 321210 ONDANSETRON HCL Inactive OMEPRAZOLE 20 MG ORAL CAPSULE DELAYED RELEASE 1 tablet by [facility] daily for GERD OMEPRAZOLE 20 MG ORAL CAPSULE DELAYED RELEASE 19 8051 OMEPRAZOLE Inactive CYCLOBENZAPRINE HCL 10 MG ORAL TABLET 1 tablet by mout h three times daily as needed for headaches CYCLOBENZAPRINE HCL 10 MG ORAL TABLET 804305 CYCLOBENZAPRINE HCL Inactive VITAMIN D3 4000 IU 1 tab 3 times daily VITAMIN D3 4000 IU Inactive PROPRANOLOL HCL 80 MG ORAL TABLET 1 tab tue. and thur. PROPRANOLOL HCL 80 MG ORAL TABLET 368154 PROPRANOLOL HCL Inacti ve CYANOCOBALAMIN 1000 MCG/ML INJECTION SOLUTION 1 injection ev ruben 2 weeks CYANOCOBALAMIN 1000 MCG/ML INJECTION SOLUTION 30 9594 CYANOCOBALAMIN Inactive MAGNESIUM GLUCONATE 250 MG ORAL TABLET 1 tab tid 23/10/23 MAGNESIUM GLUCONATE 250 MG ORAL TABLET 122942 MAGNESIUM GLUCONATE Inactive LOMOTIL 2.5-0.025 MG ORAL TABLET 1 tab by mouth prn 23/10/23 LOMOTIL 2.5-0.025 MG ORAL TABLET 9489536 DIPHENOXYLATE-ATROPINE Inac tive FLORANEX ORAL PACKET 1 pack three times daily, for bowel health FLORANEX ORAL PACKET 68735359169 LACTOBACILLUS Inactive IRON 325 (65 Fe) MG ORAL TABLET 1 every other day 2015 IRON 325 (65 Fe) MG ORAL TABLET 069689 FERROUS SULFATE Inactive FLAGYL 500 MG ORAL TABLET 1 pill by mouth three times daily, for diarrhea FLAGYL 500 MG ORAL TABLET 666674 METRONIDAZOLE I nactive BACTRIM DS 800-160 MG ORAL TABLET 1 pill by mouth twice claudio y, for UTI BACTRIM DS 800-160 MG ORAL TABLET 592543 SULFAMETHOXAZOLE-TRIMETHOPRIM Inactive Advance Directives Directive Description Start [...] ... - Chemistry sodium, serum 138 mmol/L 977-211 4346/12/15 potassium, serum 4.0 mmol/L 3.5-5.2 chloride, serum [...] - Chem istry sodium, serum 142 mmol/L 668-686 3992/04/19 carbon dioxide, venous blood 30.2 mmol/L 21.0-32 [...] mg/dL Encounters Code Encounter Date Provider Facility CPT-01222 [id number] Vst-Est Level III 14:29:19 CDT Fiorella Lundoliver [facility] [place] CPT-59455 Level 2 Est. Patient 14:58:26 CDT Kylie Lund [facility] [place] CPT-00371 Level 3 Est. Patient 08:15:24 [employer]ODUCTION WOOD [employer]RAFTSMAN Kylie Kevon [facility] [place] CPT-22221 Level 2 Est. Patient 14:27:16 [employer]ODUCTION WOOD CRAFTSMAN Kylie Kevon [facility] [place] CPT-00168 Level 3 Est. Patient 17:54:48 CDT Kylie Kevon [facility] [place] CPT-45858 Level 3 Est. Patient 16:26:30 CDT Kina blackmon [facility] CPT-35972 Level 3 New Patient 16:22:01 [employer]ODUCTION WOOD CRAFTSMAN Adam Yates MD [facility] CPT-15959 Level 4 Est. Patient 17:00:48 CDT Kylie Lund [facility] [place] CPT-87569 Level 3 Est. Patient 13:15:54 CDT Kylie Lund [facility] CPT-44964 Level 3 Est. Patient 09:10:11 CDT Kylie Lund [facility] CPT-22751 Level 4 Est. Patient 12:08:30 PRODUCTION WOOD CRAFTSMAN Hope cohn MD PhD [facility] CPT-56530 Level 4 Est. Patient 19:08:42 [employer]ODUCTION WOOD CRAFTSMAN Hope cohn MD PhD [facility] CPT-04794 Level 4 Est. Patient 20:04:51 CDT Hope cohn MD PhD [facility] CPT-73449 Level 3 New Patient 01:46:11 [employer]ODUCTION WOOD CRAFTSMAN Hope landers MD PhD [facility] Procedures Code Procedure Name Date Entry Date Standard Desc ription CPT-J0897 Prolia 60 mg 15:10:59 CDT CPT-37995 Abx/Therapy Injection 15:10:59 CDT CPT-G0439 [facility] Annual Wellness Exam 14:29:19 CDT CPT-67084 Venipuncture Draw Fee 10:59:04 CDT CPT-31478 CMP - LAB USE ONLY 10:59:04 CDT CPT-74930 CBC with Diff - LAB USE ONLY 10:59:03 CDT 2 CPT-J0897 Prolia 60 mg 15:46:54 [employer]ODUCTION [employer]RAFTSMAN CPT-06349 Abx/Therapy Injection 15:46:54 [employer]ODUCTION WOOD CRAFTSMAN CPT-30637 Microalbumin - LAB USE ONLY 09:41:32 PRODUCTION WOOD CRAFTSMAN 20 23/01/15 CPT-28234 Free T4 - LAB USE ONLY 09:41:32 PRODUCTION WOOD CRAFTSMAN CPT-26654 TSH - LAB USE ONLY 09:41:32 [employer]ODUCTION WOOD [employer]FTSMAN CPT-47442 BMP - LAB USE ONLY 09:41:32 [employer]ODUCTION WOOD CRAFTSMAN CPT-12877 Venipuncture Draw Fee 09:41:32 PRODUCTION WOOD CRAFTSMAN CPT-97560 First Vx - Ix admin for Medicare patients 11:19:30 CDT CPT-86805 Fluzone High-Dose Intramuscular Suspension 12/07 11:19:30 CDT CPT-J0897 Prolia 60 mg 14:55:42 CDT CPT-58103 Abx/Therapy Injection 14:55:42 CDT CPT-92093 Bone Density - XRAY USE ONLY 10:27:12 CDT 2 CPT-G0439 Subsequent Annual Wellness Exam 17:54:53 CDT CPT-81446 Foot, left, comp min 3V - XRAY USE ONLY 12:22:49 CDT CPT-G0009 Administration of Pneumococcal Vaccine 3 12:18:00 CDT CPT-59161 Pneumovax 23 Injection Injectable 25 MCG /0.5ML 12:18:00 CDT CPT-J0897 Prolia 60 mg 14:14:16 [employer]ODUCTION [employer]SM[employer] CPT-57472 Abx/Therapy Injection 14:14:15 [employer]ODUCTION WO[employer] CRAFTSMAN CPT-15090 Lipid - LAB USE ONLY 10:01:52 [employer]ODUCTION WOOD CRAFTSMAN 2 CPT-20425 Calcium - LAB USE ONLY 10:01:51 [employer]ODUCTION WOOD [employer]FTSMAN CPT-52454 Venipuncture Draw Fee 10:01:51 [employer]ODUCTION WOOD CRAFTSMAN CPT-LR Lesion Removal 16:22:01 [employer]ODUCTION WO[employer]SMAN CPT-82234 TSH - LAB USE ONLY 14:26:02 CDT CPT-84279 CMP - LAB USE ONLY 14:26:01 CDT CPT-94960 CBC with Diff - LAB USE ONLY 14:26:01 CDT 2 CPT-36167 Venipuncture Draw Fee 14:26:01 CDT CPT-68105 First Vx - Ix admin for Medicare patients 13:27:08 CDT CPT-57881 Fluzone High-Dose Intramuscular Suspension 11/26 13:27:08 CDT CPT-G0438 Initial Annual Wellness Exam 14:19:57 CD T CPT-G0009 Administration of Pneumococcal Vaccine 9 11:36:25 CDT CPT-54423 Prevnar 13 Intramuscular Suspension 1 1:36:25 CDT CPT-70583 Prevnar 13 Intramuscular Suspension 1 0:40:58 CDT CPT-J0897 Prolia 60 mg 10:37:16 CDT CPT-97045 Abx/Therapy Injection 10:37:16 CDT CPT-J0897 Prolia 60 mg 16:09:34 [employer]ODUCTION WOOD CRAFTSMAN CPT-J0897 Prolia 60 mg 11:10:35 PRODUCTION WO[employer] CRAFTSMAN CPT-73130 Abx/Therapy Injection 11:10:35 PRODUCTION WO[employer] CRAFTSMAN CPT-000 Give Appropriate Flu Vaccine 17:01:15 [employer]ODUCTION WO[employer] CRAFTSMAN 2 CPT-43297 Fluzone High Dose (65+) 15:03:08 [employer]ODUCTION WO[employer]SMAN 02/15 CPT-11529 Immunization Single Admin 15:03:08 [employer]ODUCTION WO[employer]SMAN 2014 CPT-OV Office Visit 15:58:06 CDT CPT-J0897 Prolia 60 mg 08:45:38 CDT CPT-88670 Abx/Therapy Injection 08:45:38 CDT CPT-J3420 Vitamin B12 1000mcg (Cyanocobalamin) 09:26:20 [employer]ODUCTION WOOD CRAFTSMAN CPT-72947 Abx/Therapy Injection 09:26:20 PRODUCTION WOOD CRAFTSMAN CPT-J3420 Vitamin B12 1000mcg (Cyanocobalamin) 09:44:40 PRODUCTION WOOD CRAFTSMAN CPT-45505 Abx/Therapy Injection 09:44:40 PRODUCTION WOOD CRAFTSMAN CPT-J3420 Vitamin B12 1000mcg (Cyanocobalamin) 09:15:54 PRODUCTION WOOD CRAFTSMAN CPT-36939 Abx/Therapy Injection 09:15:54 PRODUCTION WOOD CRAFTSMAN CPT-J3420 Vitamin B12 1000mcg (Cyanocobalamin) 09:46:44 PRODUCTION WOOD CRAFTSMAN CPT-85613 Abx/Therapy Injection 09:46:44 PRODUCTION WOOD CRAFTSMAN CPT-J3420 Vitamin B12 1000mcg (Cyanocobalamin) 09:47:34 PRODUCTION WOOD CRAFTSMAN CPT-46850 Abx/Therapy Injection 09:47:34 PRODUCTION WOOD CRAFTSMAN CPT-J3420 Vitamin B12 1000mcg (Cyanocobalamin) 14:35:50 PRODUCTION WOOD CRAFTSMAN CPT-J3420 Vitamin B12 1000mcg (Cyanocobalamin) 09:25:05 PRODUCTION WOOD CRAFTSMAN CPT-86434 Abx/Therapy Injection 09:25:05 [employer]ODUCTION WOOD [employer]RAFTSMAN CPT-G0008 Administration of Influenza Virus Vaccine 13:36:47 CDT CPT-52194 Fluzone High-Dose Intramuscular Suspension 11/15 13:36:47 CDT CPT-J0897 Prolia 60 mg 08:50:41 CDT CPT-77906 Abx/Therapy Injection 08:50:41 CDT CPT-79064 Bone Density 12:06:12 CDT CPT-59718 Bone Density 08:54:40 CDT CPT-OV Office Visit 15:37:02 CDT CPT-51753 Postop F/U Visit 15:47:49 CDT CPT-04147 Postop F/U Visit 15:21:02 CDT CPT-TCMH Transitional Care Mgmt-High 07:52:27 CDT 20 20/06/01 CPT-75581 Venipuncture Draw Fee 13:51:18 CDT CPT-40033 Venipuncture Draw Fee 10:14:55 [employer] CPT-24580 Venipuncture Draw Fee 13:39:45 [employer]ODUCTION WO[employer]RA[employer]SMAN CPT-OV Office Visit 15:11:22 [employer]ODUCTION WOOD CRAFTSMAN CPT-73245 Venipuncture Draw Fee 09:20:49 PRODUCTION WOOD CRAFTSMAN CPT-23219 Venipuncture Draw Fee 16:52:15 PRODUCTION WOOD CRAFTSMAN CPT-36902 Venipuncture Draw Fee 10:37:24 PRODUCTION WOOD CRAFTSMAN CPT-52892 Venipuncture Draw Fee 08:21:21 PRODUCTION WOOD CRAFTSMAN CPT-49357 Venipuncture Draw Fee 08:30:20 PRODUCTION WOOD CRAFTSMAN CPT-77061 Venipuncture Draw Fee 14:53:21 PRODUCTION WOOD CRAFTSMAN CPT-42770 Venipuncture Draw Fee 09:40:56 [employer]ODUCTION WOOD CRAFTSMAN CPT-90200 Venipuncture Draw Fee 10:30:47 [employer]ODUCTION WOOD CRAFTSMAN CPT-18769 Venipuncture Draw Fee 10:46:17 [employer]ODUCTION WOOD CRAFTSMAN CPT-49534 Venipuncture Draw Fee 11:12:45 PRODUCTION WOOD CRAFTSMAN CPT-05975 Venipuncture Draw Fee 09:53:33 PRODUCTION WOOD CRAFTSMAN CPT-91418 Venipuncture Draw Fee 11:53:51 [employer]ODUCTION WOOD CRAFTSMAN CPT-39829 Venipuncture Draw Fee 10:33:50 [employer]ODUCTION WO[employer] CRAFTSMAN CPT-49157 Venipuncture Draw Fee 10:05:01 [employer]ODUCTION WOOD CRAFTSMAN CPT-94208 Venipuncture Draw Fee 14:32:52 [employer]ODUCTION WOOD CRAFTSMAN CPT-01132 Venipuncture Draw Fee 09:46:13 [employer]ODUCTION WOOD C[employer]SMAN CPT-99478 Venipuncture Draw Fee 11:34:27 [employer]ODUCTION WOOD CRAFTSMAN CPT-07831 Venipuncture Draw Fee 13:17:16 [employer]ODUCTION WOOD [employer]SMAN CPT-27141 Venipuncture Draw Fee 12:05:39 CDT CPT-69249 Venipuncture Draw Fee 12:49:12 CDT CPT-16876 Venipuncture Draw Fee 12:37:18 CDT CPT-86399 Venipuncture Draw Fee 10:57:11 CDT CPT-78159 Venipuncture Draw Fee 13:47:40 CDT CPT-28472 Venipuncture Draw Fee 10:02:17 CDT CPT-53226 TB Tubersol 17:32:32 CDT CPT-OV Office Visit 16:21:53 CDT CPT-OV Office Visit 15:49:22 CDT CPT-OV Office Visit 17:16:31 CDT CPT-OV Office Visit 10:43:31 CDT
--- OUTSIDE RECORDS SUMMARY | 2019-02-09 12:10 | XMS REPORT | Clinical Summary ---
Author Author Renaldo, Florecita Munoz Organization [facility] Address Unknown Phone Unavailable Allergies, Adverse Reactions, [...] PhD Hyperpotassemia GERD 530.81 Resolved Kylie Yokum CONTINUING EDUCATION DIRECTOR Esophageal reflux Health maintenance exam V70.0 Resolved Adolfo Yates MD Routine general medical examination at a health care facility Anemia 285.9 Resolved Kylie Yanet CONTINUING EDUCATION DIRECTOR Anemia, unspecified Personal history of malignant neoplasm of large intestine V10.05 Active Adam Yates MD Personal history of malignant neoplasm of large intestine Hypomagnesemia 275.2 Resolved Kylie Yanet CONTINUING EDUCATION DIRECTOR Disorders of magnesium metabolism Weakness 780.79 [...] Sebaceous cyst, scalp 706.2 Resolved Kylie Yokum CONTINUING EDUCATION DIRECTOR Sebaceous cyst Cervical lymphadenopathy, anterior, left 785.6 Resolv ed Kylie Yokum CONTINUING EDUCATION DIRECTOR Enlargement of lymph nodes Need for prophylactic vaccination and inoculation against in fluenza V04.81 Resolved Adam Yates MD Need for prophylactic vaccination and inoculation against influenza Preventive health care V70.0 Resolved Kylie Escalonaku m CONTINUING EDUCATION DIRECTOR Routine general medical examination at a health care facility Thyroid nodule, left 241.0 Active Kylie Yokum A PRN Nontoxic uninodular goiter Screening mammogram V76.12 Resolved Kylie Yokum A PRN Other screening mammogram Mandy 706.2 Resolved Kylie Yokum CONTINUING EDUCATION DIRECTOR Sebaceous cyst Colon cancer, ascending 153.6 Resolved Kylie Yok um CONTINUING EDUCATION DIRECTOR Malignant neoplasm of ascending colon Foot pain, left 729.5 Resolved Kylie Yokum CONTINUING EDUCATION DIRECTOR Pain in limb Splinter 919.6 Resolved Kylie Yokum CONTINUING EDUCATION DIRECTOR Superficial foreign body (splinter) of other, multiple, and unspecified sites, without major open wound and without mention of infection Rash 782.1 Resolved Kylie Yokum CONTINUING EDUCATION DIRECTOR Rash and other nonspecific skin eruption Cyst 706.2 Resolved Kylie Yokum CONTINUING EDUCATION DIRECTOR Sebaceous cyst Body Mass Index 23.0-23.9 Adult Active Kylie Yokum CONTINUING EDUCATION DIRECTOR Body Mass Index between 19-24, adult Unspecified fall, initial encounter E888.9 Inactive Kylieshubham Holt CONTINUING EDUCATION DIRECTOR Unspecified fall Eye pain, left 379.91 Inactive Kylie Yogabbium CONTINUING EDUCATION DIRECTOR Pain in or around eye Pharyngitis, acute 074.0 Active Kylieshubham Holt APR N Herpangina ABDOMINAL PAIN, RIGHT LOWER QUADRANT ICD-789.03 Inactive Kina Joshua CONTINUING EDUCATION DIRECTOR ADENOCARCINOMA, COLON, 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 Dick Yates MD ABDOMINAL PAIN, GENERALIZED ICD-789.07 Inactive Hope Benavidez MD PhD FEVER UNSPECIFIED ICD-780.60 Inactive Hope cohn MD PhD UNSPECIFIED VENOUS INSUFFICIENCY ICD-459.81 Elda ctive Adam Yates MD ADENOCARCINOMA, 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 Inac tive Hope Benavidez MD PhD Hyperkalemia ICD-276.7 Inactive Hope Benavidez MD PhD GERD ICD-530.81 Inactive Kylie Lundum CONTINUING EDUCATION DIRECTOR 2015 Health maintenance exam ICD-V70.0 Bam Yates MD Anemia ICD-285.9 Inactive Kylie Lundum CONTINUING EDUCATION DIRECTOR 07/24 Hypomagnesemia ICD-275.2 Inactive Kylie Yokum CONTINUING EDUCATION DIRECTOR Weakness ICD-780.79 Inactive Hope Benavidez [...] cyst, scalp ICD-706.2 Inactive Tracy hi Yokum CONTINUING EDUCATION DIRECTOR Cervical lymphadenopathy, anterior, left ICD-785.6 Inactive Kylie Yokum CONTINUING EDUCATION DIRECTOR Need for prophylactic vaccination and inoculation against in fluenza ICD-V04.81 Inactive Adam Yates MD Preventive health care ICD-V70.0 Inactive Ka thi Yokum CONTINUING EDUCATION DIRECTOR Screening mammogram ICD-V76.12 Inactive Kylie Yokum CONTINUING EDUCATION DIRECTOR Mandy ICD-706.2 Inactive Kylie Yokum CONTINUING EDUCATION DIRECTOR 07/20 Colon cancer, ascending ICD-153.6 Inactive K athi Yokum CONTINUING EDUCATION DIRECTOR Foot pain, left ICD-729.5 Inactive Kylie Yokum CONTINUING EDUCATION DIRECTOR Splinter ICD-919.6 Inactive Kylie Yokum CONTINUING EDUCATION DIRECTOR 2017 Rash ICD-782.1 Inactive Kylie Yokum CONTINUING EDUCATION DIRECTOR 07/25 Cyst ICD-706.2 Inactive Kylie Holt CONTINUING EDUCATION DIRECTOR 08/11 Unspecified fall, initial encounter ICD-E888.9 Inactive Kylie Holt CONTINUING EDUCATION DIRECTOR Eye pain, left ICD-379.91 Inactive Kylie Holt CONTINUING EDUCATION DIRECTOR Medication List Medication Instructions Start Date Stop Date Generic Name ND Status Provider Patient Instruction IMODIUM A-D 2 MG ORAL TABLET 1 tablet twice a day LOPERAMIDE HCL 22276318576 Active Kylie Holt CONTINUING EDUCATION DIRECTOR Active VOLTAREN 1 % TRANSDERMAL GEL apply q 6-8 hour to left arm as needed for pain DICLOFENAC SODIUM 33665507896 Active Kylie Holt APRN Active COQ10 100 MG ORAL CAPSULE 1 daily COENZYME Q10 433745 06643 Active LETY Nation Active VITAMIN D3 2000 UNIT ORAL CAPSULE Melaleuca-One daily CHOLECALCIFEROL 74339526426 Active Kylie Holt APRN Active PROBIOTIC DAILY ORAL CAPSULE Take one daily PROBIO TIC PRODUCT 25335239345 Active Kylie Holt APRN Active IRON 325 (65 Fe) MG ORAL TABLET 1 every other day FERROUS SULFATE 97006195269 No Longer Active Kylie Holt APRN Active FLORANEX ORAL PACKET 1 pack three times daily, for bowel health LACTOBACILLUS 55853198300 No Longer Active Kylie Holt APRN Active LOMOTIL 2.5-0.025 MG ORAL TABLET 1 tab by mouth prn 23/10/23 DIPHENOXYLATE-ATROPINE 48288277595 No Longer Active Kylie Lundum CONTINUING EDUCATION DIRECTOR Active MAGNESIUM GLUCONATE 250 MG ORAL TABLET 1 tab tid 23/10/23 MAGNESIUM GLUCONATE 20291535027 No Longer Active Kylie Lundum CONTINUING EDUCATION DIRECTOR Active CYANOCOBALAMIN 1000 MCG/ML INJECTION SOLUTION 1 injection ev ruben 2 weeks CYANOCOBALAMIN 51046174998 No Longer Active Kylie Lund um CONTINUING EDUCATION DIRECTOR Active ATENOLOL 25 MG ORAL TABLET 1/2 pill by mouth daily, fo r headaches, blood pressure ATENOLOL 87499408578 Active Kylie Escalonagabbioliver CONTINUING EDUCATION DIRECTOR Active PROPRANOLOL HCL 80 MG ORAL TABLET 1 tab tue. and thur. PROPRANOLOL HCL 95012184480 No Longer Active Hope Benavidez MD PhD A ctive VITAMIN D3 4000 IU 1 tab 3 times daily VITAMIN D3 4000 IU No Longer Active Hope Benavidez MD PhD Active BACTRIM DS 800-160 MG ORAL TABLET 1 pill by mouth twice claudio y, for UTI SULFAMETHOXAZOLE-TRIMETHOPRIM 37446175299 No Longer Active Hope Benavidez MD PhD Active PROLIA 60 MG/ML SUBCUTANEOUS SOLUTION 1 shot every 6 months for osteoprosis DENOSUMAB 85025072153 Active Hope Benavidez MD PhD Active CALCIUM + D + K 750-500-40 MG-UNT-MCG ORAL TABLET 1 tab by m outh twice daily CALCIUM-VITAMIN D-VITAMIN K 79371078748 Active Hope valdez MD PhD Active DAILY VALUE MULTIVITAMIN ORAL TABLET 1 tab by mouth twice daily 201 05/16/14 MULTIPLE VITAMIN 95511851378 Active Hope Benavidez MD PhD Acti ve FISH OIL 306 MG CAPS 1 tab by mouth three times daily OMEGA-3 FATTY ACIDS 25486764642 Active Hope Benavidez MD PhD Active LUTEIN 10 MG ORAL TABLET 1 tab daily LUTEIN 48948881 408 Active Hope Benavidez MD PhD Active TRIAMTERENE-HCTZ 37.5-25 MG ORAL TABLET 1 tab by mouth daily 10/22 TRIAMTERENE-HCTZ 46346953460 Active Kylie oHlt APRN Active CYCLOBENZAPRINE HCL 10 MG ORAL TABLET 1 tablet by mout h three times daily as needed for headaches CYCLOBENZAPRINE HCL 97320325076 No Longer Active Adam Yates MD Active OMEPRAZOLE 20 MG ORAL CAPSULE DELAYED RELEASE 1 tablet by mo uth daily for GERD OMEPRAZOLE 26155769277 No Longer Active Aadm Yates MD Active ZOFRAN 8 MG ORAL TABLET 1 tab by mouth every 12 hours prn 4 ONDANSETRON HCL 39306708762 No Longer Active Adam Yates MD Active PHENADOZ 25 MG RECTAL SUPPOSITORY 1 every 4 hrs. PRN 2 PROMETHAZINE HCL 07098908507 No Longer Active Adam Yates MD A ctive POTASSIUM CHLORIDE 20 MEQ ORAL PACKET by mouth twice a day prn 2 POTASSIUM CHLORIDE 80905423678 No Longer Active Adam Carpenter MD Active PROMETHAZINE HCL 25 MG ORAL TABLET 1 Q. 4 hr. PRN PROMETHAZINE HCL 42978790266 No Longer Active Adam Yates MD Active INNOPRAN XL 120 MG ORAL CAPSULE EXTENDED RELEASE 24 HO UR Take one by mouth daily PROPRANOLOL HCL SR BEADS 17211512103 No Longer Active Adam Yates MD Active FLAGYL 500 MG ORAL TABLET 1 pill by mouth three times daily, for diarrhea METRONIDAZOLE 07764454137 No Longer Active Hope landers MD PhD Active DYAZIDE 37.5-25 MG ORAL CAPSULE 1 qd TRIA MTERENE-HCTZ 40380447817 No Longer Active Hope Benavidez MD PhD Active PROZAC 20 MG ORAL CAPSULE 1 q d FLUOXETINE HCL 53626440449 No Longer Active Hope Benavidez MD PhD Active SIMVASTATIN 40 MG ORAL TABLET 1 qd SIMVAS TATIN 45862107010 No Longer Active Adam Yates MD Active MELOXICAM 15 MG ORAL TABLET 1 qd MELOXICAM 07821445100 No Longer Active Adam Yates MD Active EXCEDRIN EXTRA STRENGTH 250-250-65 MG ORAL TABLET 1-2 q6h MO N headache [id number] 17830660456 Active Hope Benavidez MD PhD Active FLAGYL 500 MG ORAL TABLET 1 qid METRONIDAZOL E 12742129853 No Longer Active Adam Yates MD Active LEVAQUIN 750 MG ORAL TABLET 1 qd LEVOFLOXAC IN 66812414288 No Longer Active Adam Yates MD Active ADULT ASPIRIN LOW STRENGTH 81 MG ORAL TABLET DISINTEGRATING 1 qd ASPIRIN 38796898403 Active Hope Benavidez MD PhD Active LEVAQUIN 750 MG ORAL TABLET 1 qd LEVAQUIN 750 MG ORAL TABLET 292027 LEVOFLOXACIN Inactive FLAGYL 500 MG ORAL TABLET 1 qid FLAGYL 500 MG ORAL TABLET 821483 METRONIDAZOLE Inactive MELOXICAM 15 MG ORAL TABLET 1 qd MELOXICAM 15 MG ORAL TABLET 943379 MELOXICAM Inactive SIMVASTATIN 40 MG ORAL TABLET 1 qd SIMVASTATIN 40 MG ORAL TABLET 922893 SIMVASTATIN Inactive PROZAC 20 MG ORAL CAPSULE 1 q d PROZAC 20 MG ORAL CAPSULE 069275 FLUOXETINE HCL Inactive DYAZIDE 37.5-25 MG ORAL CAPSULE 1 qd 5 DYAZIDE 37.5-25 MG ORAL CAPSULE 488928 TRIAMTERENE-HCTZ Inactive INNOPRAN XL 120 MG ORAL CAPSULE EXTENDED RELEASE 24 HO UR Take one by mouth daily INNOPRAN XL 120 MG ORAL CAPSULE EXTENDED RELEASE 24 HOUR PROPRANOLOL HCL SR BEADS Inactive PROMETHAZINE HCL 25 MG ORAL TABLET 1 Q. 4 hr. PRN 2013 PROMETHAZINE HCL 25 MG ORAL TABLET 260896 PROMETHAZINE HCL Inactive POTASSIUM CHLORIDE 20 MEQ ORAL PACKET by mouth twice a day prn 2 POTASSIUM CHLORIDE 20 MEQ ORAL PACKET 0633345 POTASSIUM CHLORIDE Inactive PHENADOZ 25 MG RECTAL SUPPOSITORY 1 every 4 hrs. PRN 2 PHENADOZ 25 MG RECTAL SUPPOSITORY 034064 PROMETHAZINE HCL Inactive ZOFRAN 8 MG ORAL TABLET 1 tab by mouth every 12 hours prn 4 ZOFRAN 8 MG ORAL TABLET 806052 ONDANSETRON HCL Inactive OMEPRAZOLE 20 MG ORAL CAPSULE DELAYED RELEASE 1 tablet by mo [facility] daily for GERD OMEPRAZOLE 20 MG ORAL CAPSULE DELAYED RELEASE 19 8051 OMEPRAZOLE Inactive CYCLOBENZAPRINE HCL 10 MG ORAL TABLET 1 tablet by mout h three times daily as needed for headaches CYCLOBENZAPRINE HCL 10 MG ORAL TABLET 949799 CYCLOBENZAPRINE HCL Inactive VITAMIN D3 4000 IU 1 tab 3 times daily VITAMIN D3 4000 IU Inactive PROPRANOLOL HCL 80 MG ORAL TABLET 1 tab tue. and thur. PROPRANOLOL HCL 80 MG ORAL TABLET 133724 PROPRANOLOL HCL Inacti ve CYANOCOBALAMIN 1000 MCG/ML INJECTION SOLUTION 1 injection ev ruben 2 weeks CYANOCOBALAMIN 1000 MCG/ML INJECTION SOLUTION 30 9594 CYANOCOBALAMIN Inactive MAGNESIUM GLUCONATE 250 MG ORAL TABLET 1 tab tid 23/10/23 MAGNESIUM GLUCONATE 250 MG ORAL TABLET 971672 MAGNESIUM GLUCONATE Inactive LOMOTIL 2.5-0.025 MG ORAL TABLET 1 tab by mouth prn 23/10/23 LOMOTIL 2.5-0.025 MG ORAL TABLET 1478034 DIPHENOXYLATE-ATROPINE Inac tive FLORANEX ORAL PACKET 1 pack three times daily, for bowel health FLORANEX ORAL PACKET 56077106692 LACTOBACILLUS Inactive IRON 325 (65 Fe) MG ORAL TABLET 1 every other day 2015 IRON 325 (65 Fe) MG ORAL TABLET 271093 FERROUS SULFATE Inactive FLAGYL 500 MG ORAL TABLET 1 pill by mouth three times daily, for diarrhea FLAGYL 500 MG ORAL TABLET 208070 METRONIDAZOLE I nactive BACTRIM DS 800-160 MG ORAL TABLET 1 pill by mouth twice claudio y, for UTI BACTRIM DS 800-160 MG ORAL TABLET 119790 SULFAMETHOXAZOLE-TRIMETHOPRIM Inactive Advance Directives Directive Description Start [...] ... - Chemistry sodium, serum 138 mmol/L 249-111 7801/12/15 potassium, serum 4.0 mmol/L 3.5-5.2 chloride, serum [...] - Chem istry sodium, serum 142 mmol/L 994-923 6208/04/19 carbon dioxide, venous blood 30.2 mmol/L 21.0-32 [...] mg/dL Encounters Code Encounter Date Provider Facility CPT-01755 [id number] Vst-Est Level III 14:29:19 CDT Fiorella weston Polapari [facility] [place] CPT-09193 Level 2 Est. Patient 14:58:26 CDT Kylie boyd [facility] [place] CPT-87693 Level 3 Est. Patient 08:15:24 SALES MANAGEMENT INTERN Kylie Yogabbi [facility] [place] [facility] [place] CPT-07588 Level 2 Est. Patient 14:27:16 SALES MANAGEMENT INTERN Kylie Kevon [facility] [place] [facility] [place] CPT-89735 Level 3 Est. Patient 17:54:48 CDT Kylie Yogabbi [facility] [place] [facility] [place] CPT-01245 Level 3 Est. Patient 16:26:30 CDT Kina blackmon [facility] CPT-50194 Level 3 New Patient 16:22:01 SALES MANAGEMENT INTERN Adam Yates MD [facility] CPT-70033 Level 4 Est. Patient 17:00:48 CDT Kylie Lund [facility] [place] [facility] [place] CPT-58421 Level 3 Est. Patient 13:15:54 CDT Kylie Lund [facility] CPT-47277 Level 3 Est. Patient 09:10:11 CDT Kylie Lund [facility] CPT-47921 Level 4 Est. Patient 12:08:30 SALES MANAGEMENT INTERN Hope cohn MD PhD [facility] CPT-95169 Level 4 Est. Patient 19:08:42 SALES MANAGEMENT INTERN Hope cohn MD PhD [facility] CPT-61335 Level 4 Est. Patient 20:04:51 CDT Hope cohn MD PhD [facility] CPT-40053 Level 3 New Patient 01:46:11 SALES MANAGEMENT INTERN Hope landers MD PhD [facility] Procedures Code Procedure Name Date Entry Date Standard Desc ription CPT-J0897 Prolia 60 mg 15:10:59 CDT CPT-50499 Abx/Therapy Injection 15:10:59 CDT CPT-G0439 [facility] Annual Wellness Exam 14:29:19 CDT CPT-96561 Venipuncture Draw Fee 10:59:04 CDT CPT-36077 CMP - LAB USE ONLY 10:59:04 CDT CPT-34549 CBC with Diff - LAB USE ONLY 10:59:03 CDT 2 CPT-J0897 Prolia 60 mg 15:46:54 SALES MANAGEMENT INTERN CPT-88766 Abx/Therapy Injection 15:46:54 SALES MANAGEMENT INTERN CPT-62513 Microalbumin - LAB USE ONLY 09:41:32 SALES MANAGEMENT INTERN 20 23/01/15 CPT-66342 Free T4 - LAB USE ONLY 09:41:32 SALES MANAGEMENT INTERN CPT-83816 TSH - LAB USE ONLY 09:41:32 SALES MANAGEMENT INTERN CPT-66472 BMP - LAB USE ONLY 09:41:32 SALES MANAGEMENT INTERN CPT-33664 Venipuncture Draw Fee 09:41:32 SALES MANAGEMENT INTERN CPT-83121 First Vx - Ix admin for Medicare patients 11:19:30 CDT CPT-12802 Fluzone High-Dose Intramuscular Suspension 12/07 11:19:30 CDT CPT-J0897 Prolia 60 mg 14:55:42 CDT CPT-59931 Abx/Therapy Injection 14:55:42 CDT CPT-17005 Bone Density - XRAY USE ONLY 10:27:12 CDT 2 CPT-G0439 Subsequent Annual Wellness Exam 17:54:53 CDT CPT-15126 Foot, left, comp min 3V - XRAY USE ONLY 12:22:49 CDT CPT-G0009 Administration of Pneumococcal Vaccine 3 12:18:00 CDT CPT-36731 Pneumovax 23 Injection Injectable 25 MCG /0.5ML 12:18:00 CDT CPT-J0897 Prolia 60 mg 14:14:16 SALES MANAGEMENT INTERN CPT-34225 Abx/Therapy Injection 14:14:15 SALES MANAGEMENT INTERN CPT-64801 Lipid - LAB USE ONLY 10:01:52 SALES MANAGEMENT INTERN 2 CPT-28359 Calcium - LAB USE ONLY 10:01:51 SALES MANAGEMENT INTERN CPT-53876 Venipuncture Draw Fee 10:01:51 SALES MANAGEMENT INTERN CPT-LR Lesion Removal 16:22:01 SALES MANAGEMENT INTERN CPT-75937 TSH - LAB USE ONLY 14:26:02 CDT CPT-33090 CMP - LAB USE ONLY 14:26:01 CDT CPT-20935 CBC with Diff - LAB USE ONLY 14:26:01 CDT 2 CPT-54364 Venipuncture Draw Fee 14:26:01 CDT CPT-67152 First Vx - Ix admin for Medicare patients 13:27:08 CDT CPT-38010 Fluzone High-Dose Intramuscular Suspension 11/26 13:27:08 CDT CPT-G0438 Initial Annual Wellness Exam 14:19:57 CD T CPT-G0009 Administration of Pneumococcal Vaccine 9 11:36:25 CDT CPT-75259 Prevnar 13 Intramuscular Suspension 1 1:36:25 CDT CPT-16144 Prevnar 13 Intramuscular Suspension 1 0:40:58 CDT CPT-J0897 Prolia 60 mg 10:37:16 CDT CPT-10745 Abx/Therapy Injection 10:37:16 CDT CPT-J0897 Prolia 60 mg 16:09:34 SALES MANAGEMENT INTERN CPT-J0897 Prolia 60 mg 11:10:35 SALES MANAGEMENT INTERN CPT-72820 Abx/Therapy Injection 11:10:35 SALES MANAGEMENT INTERN CPT-000 Give Appropriate Flu Vaccine 17:01:15 SALES MANAGEMENT INTERN 2 CPT-90028 Fluzone High Dose (65+) 15:03:08 SALES MANAGEMENT INTERN 02/15 CPT-73017 Immunization Single Admin 15:03:08 SALES MANAGEMENT INTERN 2014 CPT-OV Office Visit 15:58:06 CDT CPT-J0897 Prolia 60 mg 08:45:38 CDT CPT-45315 Abx/Therapy Injection 08:45:38 CDT CPT-J3420 Vitamin B12 1000mcg (Cyanocobalamin) 09:26:20 SALES MANAGEMENT INTERN CPT-64659 Abx/Therapy Injection 09:26:20 SALES MANAGEMENT INTERN CPT-J3420 Vitamin B12 1000mcg (Cyanocobalamin) 09:44:40 SALES MANAGEMENT INTERN CPT-60191 Abx/Therapy Injection 09:44:40 SALES MANAGEMENT INTERN CPT-J3420 Vitamin B12 1000mcg (Cyanocobalamin) 09:15:54 SALES MANAGEMENT INTERN CPT-96787 Abx/Therapy Injection 09:15:54 SALES MANAGEMENT INTERN CPT-J3420 Vitamin B12 1000mcg (Cyanocobalamin) 09:46:44 SALES MANAGEMENT INTERN CPT-55066 Abx/Therapy Injection 09:46:44 SALES MANAGEMENT INTERN CPT-J3420 Vitamin B12 1000mcg (Cyanocobalamin) 09:47:34 SALES MANAGEMENT INTERN CPT-75730 Abx/Therapy Injection 09:47:34 SALES MANAGEMENT INTERN CPT-J3420 Vitamin B12 1000mcg (Cyanocobalamin) 14:35:50 SALES MANAGEMENT INTERN CPT-J3420 Vitamin B12 1000mcg (Cyanocobalamin) 09:25:05 SALES MANAGEMENT INTERN CPT-06931 Abx/Therapy Injection 09:25:05 SALES MANAGEMENT INTERN CPT-G0008 Administration of Influenza Virus Vaccine 13:36:47 CDT CPT-28464 Fluzone High-Dose Intramuscular Suspension 11/15 13:36:47 CDT CPT-J0897 Prolia 60 mg 08:50:41 CDT CPT-93327 Abx/Therapy Injection 08:50:41 CDT CPT-49347 Bone Density 12:06:12 CDT CPT-45619 Bone Density 08:54:40 CDT CPT-OV Office Visit 15:37:02 CDT CPT-70398 Postop F/U Visit 15:47:49 CDT CPT-14057 Postop F/U Visit 15:21:02 CDT CPT-TCMH Transitional Care Mgmt-High 07:52:27 CDT 20 20/06/01 CPT-60143 Venipuncture Draw Fee 13:51:18 CDT CPT-39921 Venipuncture Draw Fee 10:14:55 SALES MANAGEMENT INTERN CPT-11730 Venipuncture Draw Fee 13:39:45 SALES MANAGEMENT INTERN CPT-OV Office Visit 15:11:22 SALES MANAGEMENT INTERN CPT-42543 Venipuncture Draw Fee 09:20:49 SALES MANAGEMENT INTERN CPT-43625 Venipuncture Draw Fee 16:52:15 SALES MANAGEMENT INTERN CPT-52697 Venipuncture Draw Fee 10:37:24 SALES MANAGEMENT INTERN CPT-16900 Venipuncture Draw Fee 08:21:21 SALES MANAGEMENT INTERN CPT-53503 Venipuncture Draw Fee 08:30:20 SALES MANAGEMENT INTERN CPT-29429 Venipuncture Draw Fee 14:53:21 SALES MANAGEMENT INTERN CPT-24869 Venipuncture Draw Fee 09:40:56 SALES MANAGEMENT INTERN CPT-41217 Venipuncture Draw Fee 10:30:47 SALES MANAGEMENT INTERN CPT-25060 Venipuncture Draw Fee 10:46:17 SALES MANAGEMENT INTERN CPT-98508 Venipuncture Draw Fee 11:12:45 SALES MANAGEMENT INTERN CPT-67170 Venipuncture Draw Fee 09:53:33 SALES MANAGEMENT INTERN CPT-74370 Venipuncture Draw Fee 11:53:51 SALES MANAGEMENT INTERN CPT-20868 Venipuncture Draw Fee 10:33:50 SALES MANAGEMENT INTERN CPT-81263 Venipuncture Draw Fee 10:05:01 SALES MANAGEMENT INTERN CPT-75760 Venipuncture Draw Fee 14:32:52 SALES MANAGEMENT INTERN CPT-11188 Venipuncture Draw Fee 09:46:13 SALES MANAGEMENT INTERN CPT-41670 Venipuncture Draw Fee 11:34:27 SALES MANAGEMENT INTERN CPT-51816 Venipuncture Draw Fee 13:17:16 SALES MANAGEMENT INTERN CPT-30575 Venipuncture Draw Fee 12:05:39 CDT CPT-33038 Venipuncture Draw Fee 12:49:12 CDT CPT-17010 Venipuncture Draw Fee 12:37:18 CDT CPT-87775 Venipuncture Draw Fee 10:57:11 CDT CPT-53405 Venipuncture Draw Fee 13:47:40 CDT CPT-53914 Venipuncture Draw Fee 10:02:17 CDT CPT-05214 TB Tubersol 17:32:32 CDT CPT-OV Office Visit 16:21:53 CDT CPT-OV Office Visit 15:49:22 CDT CPT-OV Office Visit 17:16:31 CDT CPT-OV Office Visit 10:43:31 CDT
--- OUTSIDE RECORDS SUMMARY | 2019-02-09 12:10 | XMS REPORT | Clinical Summary ---
Author Author Admin, Florecita Munoz Organization [facility] Address Unknown Phone Unavailable Allergies, Adverse Reactions, [...] Sebaceous cyst, scalp 706.2 Resolved Kylie Yokum [employer]IOR [employer] J[employer] DEVELOPER Sebaceous cyst Cervical lymphadenopathy, anterior, left 785.6 Resolv ed Kylie Yokum S[employer]IOR [employer] END JAVA DEVELOPER Enlargement of lymph nodes Need for prophylactic vaccination and inoculation against in fluenza V04.81 Resolved Adam Yates MD Need for prophylactic vaccination and inoculation against influenza Preventive health care V70.0 Resolved Kylie Yoku m SENIOR [employer] END JAVA DEVELOPER Routine general medical examination at a health care facility Thyroid nodule, left 241.0 Active Kylie Yokum A PRN Nontoxic uninodular goiter Screening mammogram V76.12 Resolved Kylie Yokum A PRN Other screening mammogram Mandy 706.2 Resolved Kylie Yokum [employer]IOR [employer] END J[employer] DEVELOPER Sebaceous cyst Colon cancer, ascending 153.6 Resolved Kylie Yok um S[employer]IOR BACK END JAVA DEVELOPER Malignant neoplasm of ascending colon Foot pain, left 729.5 Resolved Kylie Yokum SENIOR [employer] END JAVA DEVELOPER Pain in limb Splinter 919.6 Resolved Kylie Yokum SENIOR [employer] END JAVA DEVELOPER Superficial foreign body (splinter) of other, multiple, and unspecified sites, without major open wound and without mention of infection Rash 782.1 Resolved Kylie Yokum SENIOR BACK END JAVA DEVELOPER Rash and other nonspecific skin eruption Cyst 706.2 Resolved Kylie Yokum S[employer]IOR [employer] END JAVA DEVELOPER Sebaceous cyst Body Mass Index 23.0-23.9 Adult Active Kylie Yokum S[employer]IOR [employer] END JAVA DEVELOPER Body Mass Index between 19-24, adult Unspecified fall, initial encounter E888.9 Inactive Kylieshubham Holt S[employer]IOR [employer] END JAVA DEVELOPER Unspecified fall Eye pain, left 379.91 Inactive Kylie Yokum SENIOR [employer] END JAVA DEVELOPER Pain in or around eye Pharyngitis, acute 074.0 Active Kylieshubham Lundum APR N Herpangina ABDOMINAL PAIN, RIGHT LOWER QUADRANT ICD-789.03 Inactive Kina Joshua S[employer]IOR BACK END JAVA DEVELOPER ADENOCARCINOMA, COLON, 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 Dick Yates MD ABDOMINAL PAIN, GENERALIZED ICD-789.07 Inactive Hope Benavidez MD PhD FEVER UNSPECIFIED ICD-780.60 Inactive Hope cohn MD PhD UNSPECIFIED VENOUS INSUFFICIENCY ICD-459.81 [place] ctive Adam Yates MD ADENOCARCINOMA, 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 Inac tive Hope Benavidez MD PhD Hyperkalemia ICD-276.7 Inactive Hope Benavidez MD PhD GERD ICD-530.81 Inactive Kylie Lundum S[employer]IOR [employer] END JAVA DEVELOPER 2015 Health maintenance exam ICD-V70.0 Bam Yates MD Anemia ICD-285.9 Inactive Kylie Polakum S[employer]IOR BACK END JAVA DEVELOPER 07/24 Hypomagnesemia ICD-275.2 Inactive Kylie Yokum SENIOR [employer] END JAVA DEVELOPER Weakness ICD-780.79 Inactive Hope Benavidez MD P [...] cyst, scalp ICD-706.2 Inactive Tracy hi Yokum SENIOR BACK END JAVA DEVELOPER Cervical lymphadenopathy, anterior, left ICD-785.6 Inactive Kylie Yokum SENIOR [employer] END JAVA DEVELOPER Need for prophylactic vaccination and inoculation against in fluenza ICD-V04.81 Inactive Adam Yates MD Preventive health care ICD-V70.0 Inactive Ka thi Yokum SENIOR BACK END JAVA DEVELOPER Screening mammogram ICD-V76.12 Inactive Kylie Yokum SENIOR BACK END JAVA DEVELOPER Mandy ICD-706.2 Inactive Kylie Yokum SENIOR [employer] END JAVA DEVELOPER 07/20 Colon cancer, ascending ICD-153.6 Inactive K athi Yokum SENIOR BACK END JAVA DEVELOPER Foot pain, left ICD-729.5 Inactive Kylie Yokum SENIOR [employer] END JAVA DEVELOPER Splinter ICD-919.6 Inactive Kylie Yokum SENIOR [employer] END JAVA DEVELOPER 2017 Rash ICD-782.1 Inactive Kylie Yokum SENIOR [employer] END JAVA DEVELOPER 07/25 Cyst ICD-706.2 Inactive Kylie Holt SENIOR BACK END JAVA DEVELOPER 08/11 Unspecified fall, initial encounter ICD-E888.9 Inactive Kylie Holt SENIOR BACK END JAVA DEVELOPER Eye pain, left ICD-379.91 Inactive Kylie Holt S[employer]IOR [employer] END JAVA DEVELOPER Medication List Medication Instructions Start Date Stop Date Generic Name ND Status Provider Patient Instruction IMODIUM A-D 2 MG ORAL TABLET 1 tablet twice a day LOPERAMIDE HCL 20845109693 Active Kylie Holt AMY Active VOLTAREN 1 % TRANSDERMAL GEL apply q 6-8 hour to left arm as needed for pain DICLOFENAC SODIUM 50134381928 Active Kylie Holt APRN Active COQ10 100 MG ORAL CAPSULE 1 daily COENZYME Q10 511904 00887 Active LETY Nation Active VITAMIN D3 2000 UNIT ORAL CAPSULE Melaleuca-One daily CHOLECALCIFEROL 81002842754 Active Kylie Holt AMY Active PROBIOTIC DAILY ORAL CAPSULE Take one daily PROBIO TIC PRODUCT 92522925800 Active Kylie Holt AMY Active IRON 325 (65 Fe) MG ORAL TABLET 1 every other day FERROUS SULFATE 61942029018 No Longer Active Kylie Holt APRN Active FLORANEX ORAL PACKET 1 pack three times daily, for bowel health LACTOBACILLUS 42528663492 No Longer Active Kylie Holt AMY Active LOMOTIL 2.5-0.025 MG ORAL TABLET 1 tab by mouth prn 23/10/23 DIPHENOXYLATE-ATROPINE 80900843172 No Longer Active Kylie Lundum SENIOR [employer] END JAVA DEVELOPER Active MAGNESIUM GLUCONATE 250 MG ORAL TABLET 1 tab tid 23/10/23 MAGNESIUM GLUCONATE 63573929162 No Longer Active Kylie Lundum SENIOR [employer] END JAVA DEVELOPER Active CYANOCOBALAMIN 1000 MCG/ML INJECTION SOLUTION 1 injection ev ruben 2 weeks CYANOCOBALAMIN 43095332872 No Longer Active Kylie Yok um SENIOR [employer] END JAVA DEVELOPER Active ATENOLOL 25 MG ORAL TABLET 1/2 pill by mouth daily, fo r headaches, blood pressure ATENOLOL 83082112698 Active Kylie Holt SENIOR BACK END JAVA DEVELOPER Active PROPRANOLOL HCL 80 MG ORAL TABLET 1 tab tue. and thur. PROPRANOLOL HCL 48213779053 No Longer Active Hope Benavidez MD PhD A ctive VITAMIN D3 4000 IU 1 tab 3 times daily VITAMIN D3 4000 IU No Longer Active Hope Benavidez MD PhD Active BACTRIM DS 800-160 MG ORAL TABLET 1 pill by mouth twice claudio y, for UTI SULFAMETHOXAZOLE-TRIMETHOPRIM 00752731499 No Longer Active Hope Benavidez MD PhD Active PROLIA 60 MG/ML SUBCUTANEOUS SOLUTION 1 shot every 6 months for osteoprosis DENOSUMAB 19372903953 Active Hope Benavidez MD PhD Active CALCIUM + D + K 750-500-40 MG-UNT-MCG ORAL TABLET 1 tab by m out twice daily CALCIUM-VITAMIN D-VITAMIN K 56488220541 Active Hope valdez MD PhD Active DAILY VALUE MULTIVITAMIN ORAL TABLET 1 tab by mouth twice daily 201 05/16/14 MULTIPLE VITAMIN 21343923118 Active Hope Benavidez MD PhD Acti ve FISH OIL 306 MG CAPS 1 tab by mouth three times daily OMEGA-3 FATTY ACIDS 71735217948 Active Hope Benavidez MD PhD Active LUTEIN 10 MG ORAL TABLET 1 tab daily LUTEIN 60642207 408 Active Hope Benavidez MD PhD Active TRIAMTERENE-HCTZ 37.5-25 MG ORAL TABLET 1 tab by mouth daily 10/22 TRIAMTERENE-HCTZ 16481029093 Active Kylie Escalonagabbioliver SENIOR BACK END JAVA DEVELOPER Active CYCLOBENZAPRINE HCL 10 MG ORAL TABLET 1 tablet by mout h three times daily as needed for headaches CYCLOBENZAPRINE HCL 35396386495 No Longer Active Adam Yates MD Active OMEPRAZOLE 20 MG ORAL CAPSULE DELAYED RELEASE 1 tablet by mo uth daily for GERD OMEPRAZOLE 69034741959 No Longer Active Adam Yates MD Active ZOFRAN 8 MG ORAL TABLET 1 tab by mouth every 12 hours prn 4 ONDANSETRON HCL 82942347900 No Longer Active Adam Yates MD Active PHENADOZ 25 MG RECTAL SUPPOSITORY 1 every 4 hrs. PRN 2 PROMETHAZINE HCL 07348430637 No Longer Active Adam Yates MD A ctive POTASSIUM CHLORIDE 20 MEQ ORAL PACKET by mouth twice a day prn 2 POTASSIUM CHLORIDE 18317087925 No Longer Active Adam Carpenter MD Active PROMETHAZINE HCL 25 MG ORAL TABLET 1 Q. 4 hr. PRN PROMETHAZINE HCL 02713654154 No Longer Active Adam Yates MD Active INNOPRAN XL 120 MG ORAL CAPSULE EXTENDED RELEASE 24 HO UR Take one by mouth daily PROPRANOLOL HCL SR BEADS 08709486692 No Longer Active Adam Yates MD Active FLAGYL 500 MG ORAL TABLET 1 pill by mouth three times daily, for diarrhea METRONIDAZOLE 24349861490 No Longer Active Hope landers MD PhD Active DYAZIDE 37.5-25 MG ORAL CAPSULE 1 qd TRIA MTERENE-HCTZ 76052860650 No Longer Active Hope Benavidez MD PhD Active PROZAC 20 MG ORAL CAPSULE 1 q d FLUOXETINE HCL 62882032983 No Longer Active Hope Benavidez MD PhD Active SIMVASTATIN 40 MG ORAL TABLET 1 qd SIMVAS TATIN 31374463616 No Longer Active Adam Yates MD Active MELOXICAM 15 MG ORAL TABLET 1 qd MELOXICAM 79673659767 No Longer Active Adam Yates MD Active EXCEDRIN EXTRA STRENGTH 250-250-65 MG ORAL TABLET 1-2 q6h WY N headache [id number] 48450842335 Active Hope Benavidez MD PhD Active FLAGYL 500 MG ORAL TABLET 1 qid METRONIDAZOL E 94063831737 No Longer Active Adam Yates MD Active LEVAQUIN 750 MG ORAL TABLET 1 qd LEVOFLOXAC IN 84249471850 No Longer Active Adam Yates MD Active ADULT ASPIRIN LOW STRENGTH 81 MG ORAL TABLET DISINTEGRATING 1 qd ASPIRIN 38151340565 Active Hope Benavidez MD PhD Active LEVAQUIN 750 MG ORAL TABLET 1 qd LEVAQUIN 750 MG ORAL TABLET 295064 LEVOFLOXACIN Inactive FLAGYL 500 MG ORAL TABLET 1 qid FLAGYL 500 MG ORAL TABLET 834100 METRONIDAZOLE Inactive MELOXICAM 15 MG ORAL TABLET 1 qd MELOXICAM 15 MG ORAL TABLET 520899 MELOXICAM Inactive SIMVASTATIN 40 MG ORAL TABLET 1 qd SIMVASTATIN 40 MG ORAL TABLET 836061 SIMVASTATIN Inactive PROZAC 20 MG ORAL CAPSULE 1 q d PROZAC 20 MG ORAL CAPSULE 414544 FLUOXETINE HCL Inactive DYAZIDE 37.5-25 MG ORAL CAPSULE 1 qd 5 DYAZIDE 37.5-25 MG ORAL CAPSULE 339603 TRIAMTERENE-HCTZ Inactive INNOPRAN XL 120 MG ORAL CAPSULE EXTENDED RELEASE 24 HO UR Take one by mouth daily INNOPRAN XL 120 MG ORAL CAPSULE EXTENDED RELEASE 24 HOUR PROPRANOLOL HCL SR BEADS Inactive PROMETHAZINE HCL 25 MG ORAL TABLET 1 Q. 4 hr. PRN 2013 PROMETHAZINE HCL 25 MG ORAL TABLET 657404 PROMETHAZINE HCL Inactive POTASSIUM CHLORIDE 20 MEQ ORAL PACKET by mouth twice a day prn 2 POTASSIUM CHLORIDE 20 MEQ ORAL PACKET 3336105 POTASSIUM CHLORIDE Inactive PHENADOZ 25 MG RECTAL SUPPOSITORY 1 every 4 hrs. PRN 2 PHENADOZ 25 MG RECTAL SUPPOSITORY 309792 PROMETHAZINE HCL Inactive ZOFRAN 8 MG ORAL TABLET 1 tab by mouth every 12 hours prn 4 ZOFRAN 8 MG ORAL TABLET 477025 ONDANSETRON HCL Inactive OMEPRAZOLE 20 MG ORAL CAPSULE DELAYED RELEASE 1 tablet by [facility] daily for GERD OMEPRAZOLE 20 MG ORAL CAPSULE DELAYED RELEASE 19 8051 OMEPRAZOLE Inactive CYCLOBENZAPRINE HCL 10 MG ORAL TABLET 1 tablet by mout h three times daily as needed for headaches CYCLOBENZAPRINE HCL 10 MG ORAL TABLET 585975 CYCLOBENZAPRINE HCL Inactive VITAMIN D3 4000 IU 1 tab 3 times daily VITAMIN D3 4000 IU Inactive PROPRANOLOL HCL 80 MG ORAL TABLET 1 tab tue. and thur. PROPRANOLOL HCL 80 MG ORAL TABLET 799673 PROPRANOLOL HCL Inacti ve CYANOCOBALAMIN 1000 MCG/ML INJECTION SOLUTION 1 injection ev ruben 2 weeks CYANOCOBALAMIN 1000 MCG/ML INJECTION SOLUTION 30 9594 CYANOCOBALAMIN Inactive MAGNESIUM GLUCONATE 250 MG ORAL TABLET 1 tab tid 23/10/23 MAGNESIUM GLUCONATE 250 MG ORAL TABLET 300206 MAGNESIUM GLUCONATE Inactive LOMOTIL 2.5-0.025 MG ORAL TABLET 1 tab by mouth prn 23/10/23 LOMOTIL 2.5-0.025 MG ORAL TABLET 2653400 DIPHENOXYLATE-ATROPINE Inac tive FLORANEX ORAL PACKET 1 pack three times daily, for bowel health FLORANEX ORAL PACKET 66876297570 LACTOBACILLUS Inactive IRON 325 (65 Fe) MG ORAL TABLET 1 every other day 2015 IRON 325 (65 Fe) MG ORAL TABLET 969966 FERROUS SULFATE Inactive FLAGYL 500 MG ORAL TABLET 1 pill by mouth three times daily, for diarrhea FLAGYL 500 MG ORAL TABLET 492387 METRONIDAZOLE I nactive BACTRIM DS 800-160 MG ORAL TABLET 1 pill by mouth twice claudio y, for UTI BACTRIM DS 800-160 MG ORAL TABLET 770940 SULFAMETHOXAZOLE-TRIMETHOPRIM Inactive Advance Directives Directive Description Start [...] ... - Chemistry sodium, serum 138 mmol/L 360-479 1736/12/15 potassium, serum 4.0 mmol/L 3.5-5.2 chloride, serum [...] - Chem istry sodium, serum 142 mmol/L 633-562 9845/04/19 carbon dioxide, venous blood 30.2 mmol/L 21.0-32 [...] mg/dL Encounters Code Encounter Date Provider Facility CPT-17834 [id number] Vst-Est Level III 14:29:19 CDT Fiorella Lundol[facility] [place] CPT-06861 Level 2 Est. Patient 14:58:26 CDT Kylie Lund [facility] [place] CPT-98963 Level 3 Est. Patient 08:15:24 DEPUTY BAILIFF Kylie Kevon [facility] [place] CPT-69018 Level 2 Est. Patient 14:27:16 DEPUTY BAILIFF Kylie Kevon [facility] [place] CPT-27146 Level 3 Est. Patient 17:54:48 CDT Kylie Kevon [facility] [place] CPT-38679 Level 3 Est. Patient 16:26:30 CDT Kina blackmon [facility] CPT-87932 Level 3 New Patient 16:22:01 DEPUTY BAILIFF Adam Yates MD [facility] CPT-97383 Level 4 Est. Patient 17:00:48 CDT Kylie Lund [facility] [place] CPT-37627 Level 3 Est. Patient 13:15:54 CDT Kylie Lund [facility] CPT-61619 Level 3 Est. Patient 09:10:11 CDT Kylie Lund [facility] CPT-10198 Level 4 Est. Patient 12:08:30 DEPUTY BAILIFF Hope cohn MD PhD [facility] CPT-70201 Level 4 Est. Patient 19:08:42 DEPUTY BAILIFF Hope cohn MD PhD [facility] CPT-05304 Level 4 Est. Patient 20:04:51 CDT Hope cohn MD PhD [facility] CPT-60391 Level 3 New Patient 01:46:11 DEPUTY BAILIFF Hope landers MD PhD [facility] Procedures Code Procedure Name Date Entry Date Standard Desc ription CPT-J0897 Prolia 60 mg 15:10:59 CDT CPT-08905 Abx/Therapy Injection 15:10:59 CDT CPT-G0439 [facility] Annual Wellness Exam 14:29:19 CDT CPT-16764 Venipuncture Draw Fee 10:59:04 CDT CPT-14419 CMP - LAB USE ONLY 10:59:04 CDT CPT-90855 CBC with Diff - LAB USE ONLY 10:59:03 CDT 2 CPT-J0897 Prolia 60 mg 15:46:54 DEPUTY BAILIFF CPT-57402 Abx/Therapy Injection 15:46:54 DEPUTY BAILIFF CPT-98838 Microalbumin - LAB USE ONLY 09:41:32 DEPUTY BAILIFF 20 23/01/15 CPT-69075 Free T4 - LAB USE ONLY 09:41:32 DEPUTY BAILIFF CPT-46610 TSH - LAB USE ONLY 09:41:32 DEPUTY BAILIFF CPT-03732 BMP - LAB USE ONLY 09:41:32 DEPUTY BAILIFF CPT-36829 Venipuncture Draw Fee 09:41:32 DEPUTY BAILIFF CPT-79674 First Vx - Ix admin for Medicare patients 11:19:30 CDT CPT-26198 Fluzone High-Dose Intramuscular Suspension 12/07 11:19:30 CDT CPT-J0897 Prolia 60 mg 14:55:42 CDT CPT-17596 Abx/Therapy Injection 14:55:42 CDT CPT-29037 Bone Density - XRAY USE ONLY 10:27:12 CDT 2 CPT-G0439 Subsequent Annual Wellness Exam 17:54:53 CDT CPT-16468 Foot, left, comp min 3V - XRAY USE ONLY 12:22:49 CDT CPT-G0009 Administration of Pneumococcal Vaccine 3 12:18:00 CDT CPT-26096 Pneumovax 23 Injection Injectable 25 MCG /0.5ML 12:18:00 CDT CPT-J0897 Prolia 60 mg 14:14:16 DEPUTY BAILIFF CPT-05000 Abx/Therapy Injection 14:14:15 DEPUTY BAILIFF CPT-32697 Lipid - LAB USE ONLY 10:01:52 DEPUTY BAILIFF 2 CPT-96959 Calcium - LAB USE ONLY 10:01:51 DEPUTY BAILIFF CPT-52682 Venipuncture Draw Fee 10:01:51 DEPUTY BAILIFF CPT-LR Lesion Removal 16:22:01 DEPUTY BAILIFF CPT-88735 TSH - LAB USE ONLY 14:26:02 CDT CPT-46807 CMP - LAB USE ONLY 14:26:01 CDT CPT-66075 CBC with Diff - LAB USE ONLY 14:26:01 CDT 2 CPT-09306 Venipuncture Draw Fee 14:26:01 CDT CPT-06384 First Vx - Ix admin for Medicare patients 13:27:08 CDT CPT-37885 Fluzone High-Dose Intramuscular Suspension 11/26 13:27:08 CDT CPT-G0438 Initial Annual Wellness Exam 14:19:57 CD T CPT-G0009 Administration of Pneumococcal Vaccine 9 11:36:25 CDT CPT-00836 Prevnar 13 Intramuscular Suspension 1 1:36:25 CDT CPT-23031 Prevnar 13 Intramuscular Suspension 1 0:40:58 CDT CPT-J0897 Prolia 60 mg 10:37:16 CDT CPT-18916 Abx/Therapy Injection 10:37:16 CDT CPT-J0897 Prolia 60 mg 16:09:34 DEPUTY BAILIFF CPT-J0897 Prolia 60 mg 11:10:35 DEPUTY BAILIFF CPT-25703 Abx/Therapy Injection 11:10:35 DEPUTY BAILIFF CPT-000 Give Appropriate Flu Vaccine 17:01:15 DEPUTY BAILIFF 2 CPT-29428 Fluzone High Dose (65+) 15:03:08 DEPUTY BAILIFF 02/15 CPT-48624 Immunization Single Admin 15:03:08 DEPUTY BAILIFF 2014 CPT-OV Office Visit 15:58:06 CDT CPT-J0897 Prolia 60 mg 08:45:38 CDT CPT-55187 Abx/Therapy Injection 08:45:38 CDT CPT-J3420 Vitamin B12 1000mcg (Cyanocobalamin) 09:26:20 DEPUTY BAILIFF CPT-89694 Abx/Therapy Injection 09:26:20 DEPUTY BAILIFF CPT-J3420 Vitamin B12 1000mcg (Cyanocobalamin) 09:44:40 DEPUTY BAILIFF CPT-89072 Abx/Therapy Injection 09:44:40 DEPUTY BAILIFF CPT-J3420 Vitamin B12 1000mcg (Cyanocobalamin) 09:15:54 DEPUTY BAILIFF CPT-85554 Abx/Therapy Injection 09:15:54 DEPUTY BAILIFF CPT-J3420 Vitamin B12 1000mcg (Cyanocobalamin) 09:46:44 DEPUTY BAILIFF CPT-14145 Abx/Therapy Injection 09:46:44 DEPUTY BAILIFF CPT-J3420 Vitamin B12 1000mcg (Cyanocobalamin) 09:47:34 DEPUTY BAILIFF CPT-32163 Abx/Therapy Injection 09:47:34 DEPUTY BAILIFF CPT-J3420 Vitamin B12 1000mcg (Cyanocobalamin) 14:35:50 DEPUTY BAILIFF CPT-J3420 Vitamin B12 1000mcg (Cyanocobalamin) 09:25:05 DEPUTY BAILIFF CPT-82129 Abx/Therapy Injection 09:25:05 DEPUTY BAILIFF CPT-G0008 Administration of Influenza Virus Vaccine 13:36:47 CDT CPT-51428 Fluzone High-Dose Intramuscular Suspension 11/15 13:36:47 CDT CPT-J0897 Prolia 60 mg 08:50:41 CDT CPT-43448 Abx/Therapy Injection 08:50:41 CDT CPT-60675 Bone Density 12:06:12 CDT CPT-11554 Bone Density 08:54:40 CDT CPT-OV Office Visit 15:37:02 CDT CPT-77868 Postop F/U Visit 15:47:49 CDT CPT-33658 Postop F/U Visit 15:21:02 CDT CPT-TCMH Transitional Care Mgmt-High 07:52:27 CDT 20 20/06/01 CPT-60465 Venipuncture Draw Fee 13:51:18 CDT CPT-43215 Venipuncture Draw Fee 10:14:55 DEPUTY BAILIFF CPT-83488 Venipuncture Draw Fee 13:39:45 DEPUTY BAILIFF CPT-OV Office Visit 15:11:22 DEPUTY BAILIFF CPT-76868 Venipuncture Draw Fee 09:20:49 DEPUTY BAILIFF CPT-11358 Venipuncture Draw Fee 16:52:15 DEPUTY BAILIFF CPT-06909 Venipuncture Draw Fee 10:37:24 DEPUTY BAILIFF CPT-29283 Venipuncture Draw Fee 08:21:21 DEPUTY BAILIFF CPT-94206 Venipuncture Draw Fee 08:30:20 DEPUTY BAILIFF CPT-03520 Venipuncture Draw Fee 14:53:21 DEPUTY BAILIFF CPT-25425 Venipuncture Draw Fee 09:40:56 DEPUTY BAILIFF CPT-93461 Venipuncture Draw Fee 10:30:47 DEPUTY BAILIFF CPT-70988 Venipuncture Draw Fee 10:46:17 DEPUTY BAILIFF CPT-43689 Venipuncture Draw Fee 11:12:45 DEPUTY BAILIFF CPT-56770 Venipuncture Draw Fee 09:53:33 DEPUTY BAILIFF CPT-19101 Venipuncture Draw Fee 11:53:51 DEPUTY BAILIFF CPT-81249 Venipuncture Draw Fee 10:33:50 DEPUTY BAILIFF CPT-69379 Venipuncture Draw Fee 10:05:01 DEPUTY BAILIFF CPT-55127 Venipuncture Draw Fee 14:32:52 DEPUTY BAILIFF CPT-01150 Venipuncture Draw Fee 09:46:13 DEPUTY BAILIFF CPT-09867 Venipuncture Draw Fee 11:34:27 DEPUTY BAILIFF CPT-63423 Venipuncture Draw Fee 13:17:16 DEPUTY BAILIFF CPT-34383 Venipuncture Draw Fee 12:05:39 CDT CPT-86240 Venipuncture Draw Fee 12:49:12 CDT CPT-96137 Venipuncture Draw Fee 12:37:18 CDT CPT-69986 Venipuncture Draw Fee 10:57:11 CDT CPT-01564 Venipuncture Draw Fee 13:47:40 CDT CPT-00648 Venipuncture Draw Fee 10:02:17 CDT CPT-08795 TB Tubersol 17:32:32 CDT CPT-OV Office Visit 16:21:53 CDT CPT-OV Office Visit 15:49:22 CDT CPT-OV Office Visit 17:16:31 CDT CPT-OV Office Visit 10:43:31 CDT
--- OUTSIDE RECORDS SUMMARY | 2019-02-09 12:11 | XMS REPORT | Clinical Summary ---
Author Author Renaldo, Florecita Munoz Organization [facility] Address Unknown Phone Unavailable Allergies, Adverse Reactions, [...] PhD Hyperpotassemia GERD 530.81 Resolved Kylie Yokum SHIPPING AND RECEIVING COORDINATOR Esophageal reflux Health maintenance exam V70.0 Resolved Adolfo Yates MD Routine general medical examination at a health care facility Anemia 285.9 Resolved Kylie Yanet SHIPPING AND RECEIVING COORDINATOR Anemia, unspecified Personal history of malignant neoplasm of large intestine V10.05 Active Adam Yates MD Personal history of malignant neoplasm of large intestine Hypomagnesemia 275.2 Resolved Kylie Yanet SHIPPING AND RECEIVING COORDINATOR Disorders of magnesium metabolism Weakness 780.79 [...] Sebaceous cyst, scalp 706.2 Resolved Kylie Yokum SHIPPING AND RECEIVING COORDINATOR Sebaceous cyst Cervical lymphadenopathy, anterior, left 785.6 Resolv ed Kylie Yokum SHIPPING AND RECEIVING COORDINATOR Enlargement of lymph nodes Need for prophylactic vaccination and inoculation against in fluenza V04.81 Resolved Adam Yates MD Need for prophylactic vaccination and inoculation against influenza Preventive health care V70.0 Active Kylie Yokum SHIPPING AND RECEIVING COORDINATOR Routine general medical examination at a health care facility Thyroid nodule, left 241.0 Active Kylie Yokum A PRN Nontoxic uninodular goiter Screening mammogram V76.12 Active Kylie Yokum AP RN Other screening mammogram Mandy 706.2 Resolved Kylie Yokum SHIPPING AND RECEIVING COORDINATOR Sebaceous cyst Colon cancer, ascending 153.6 Resolved Kylie Yok um SHIPPING AND RECEIVING COORDINATOR Malignant neoplasm of ascending colon Foot pain, left 729.5 Active Sulema Naff CLINICAL LABORATORY DIRECTOR Pain in limb Splinter 919.6 Active Kylie Yokum SHIPPING AND RECEIVING COORDINATOR Superficial foreign body (splinter) of other, multiple, and unspecified sites, without major open wound and without mention of infection Rash 782.1 Active Kylie Yokum SHIPPING AND RECEIVING COORDINATOR R aurora and other nonspecific skin eruption ABDOMINAL PAIN, RIGHT LOWER QUADRANT ICD-789.03 Inactive Kina Joshua SHIPPING AND RECEIVING COORDINATOR ADENOCARCINOMA, COLON, 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 Dick Yates MD ABDOMINAL PAIN, GENERALIZED ICD-789.07 Inactive Hope Benavidez MD PhD FEVER UNSPECIFIED ICD-780.60 Inactive Hope cohn MD PhD UNSPECIFIED VENOUS INSUFFICIENCY ICD-459.81 Epworth ctive Adam Yates MD ADENOCARCINOMA, 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 Inac tive Hope Benavidez MD PhD Hyperkalemia ICD-276.7 Inactive Hope Benavidez MD PhD GERD ICD-530.81 Inactive Kylie Yanet SHIPPING AND RECEIVING COORDINATOR 2015 Health maintenance exam ICD-V70.0 Bam Yates MD Anemia ICD-285.9 Inactive Kylie Holt SHIPPING AND RECEIVING COORDINATOR 07/24 Hypomagnesemia ICD-275.2 Inactive Kylie Yokum SHIPPING AND RECEIVING COORDINATOR Weakness ICD-780.79 Inactive Hope Benavidez MD [...] Sebaceous cyst, scalp ICD-706.2 Inactive Tracy Holt SHIPPING AND RECEIVING COORDINATOR Cervical lymphadenopathy, anterior, left ICD-785.6 Inactive Kylie Holt SHIPPING AND RECEIVING COORDINATOR Need for prophylactic vaccination and inoculation against in fluenza ICD-V04.81 Inactive Adam Yates MD Mandy ICD-706.2 Inactive Kylie Holt AMY 07/20 Colon cancer, ascending ICD-153.6 Inactive Gabbi Escalonagabbioliver AMY Medication List Medication Instructions Start Date Stop Date Generic Name NDC Status Provider Patient Instruction VOLTAREN 1 % TRANSDERMAL GEL apply q 6-8 hour to left arm as needed for pain DICLOFENAC SODIUM 49637583484 Active Kylie Holt AMY Active COQ10 100 MG ORAL CAPSULE 1 daily COENZYME Q10 010702 56545 Active LETY Nation Active VITAMIN D3 2000 UNIT ORAL CAPSULE Melaleuca-One daily CHOLECALCIFEROL 02683064588 Active Kylie Holt APRN Active PROBIOTIC DAILY ORAL CAPSULE Take one daily PROBIO TIC PRODUCT 09732410104 Active Kylie Holt AMY Active IRON 325 (65 Fe) MG ORAL TABLET 1 every other day FERROUS SULFATE 28835048054 No Longer Active Kylie Holt AMY Active FLORANEX ORAL PACKET 1 pack three times daily, for bowel health LACTOBACILLUS 97138867262 No Longer Active Kylie Holt AMY Active LOMOTIL 2.5-0.025 MG ORAL TABLET 1 tab by mouth prn 23/10/23 DIPHENOXYLATE-ATROPINE 18886920454 No Longer Active Kylie Holt SHIPPING AND RECEIVING COORDINATOR Active MAGNESIUM GLUCONATE 250 MG ORAL TABLET 1 tab tid 23/10/23 MAGNESIUM GLUCONATE 84776344544 No Longer Active Kylie Holt SHIPPING AND RECEIVING COORDINATOR Active CYANOCOBALAMIN 1000 MCG/ML INJECTION SOLUTION 1 injection ev ruben 2 weeks CYANOCOBALAMIN 87355329018 No Longer Active Kylie boyd SHIPPING AND RECEIVING COORDINATOR Active ATENOLOL 25 MG ORAL TABLET 1/2 pill by mouth daily, fo r headaches, blood pressure ATENOLOL 07083297060 Active Kylie Holt SHIPPING AND RECEIVING COORDINATOR Active PROPRANOLOL HCL 80 MG ORAL TABLET 1 tab tue. and thur. PROPRANOLOL HCL 24942139627 No Longer Active Hope Benavidez MD PhD A ctive VITAMIN D3 4000 IU 1 tab 3 times daily VITAMIN D3 4000 IU No Longer Active Hope Benavidez MD PhD Active BACTRIM DS 800-160 MG ORAL TABLET 1 pill by mouth twice claudio y, for UTI SULFAMETHOXAZOLE-TRIMETHOPRIM 58323845480 No Longer Active Hope Benavidez MD PhD Active PROLIA 60 MG/ML SUBCUTANEOUS SOLUTION 1 shot every 6 months for osteoprosis DENOSUMAB 34630704353 Active Hope Benavidez MD PhD Active CALCIUM + D + K 750-500-40 MG-UNT-MCG ORAL TABLET 1 tab by m harvinder twice daily CALCIUM-VITAMIN D-VITAMIN K 35695338874 Active Hope valdez MD PhD Active DAILY VALUE MULTIVITAMIN ORAL TABLET 1 tab by mouth twice daily 201 05/16/14 MULTIPLE VITAMIN 37857313660 Active Hope Benavidez MD PhD Acti ve FISH OIL 306 MG CAPS 1 tab by mouth three times daily OMEGA-3 FATTY ACIDS 51449847553 Active Hope Benavidez MD PhD Active LUTEIN 10 MG ORAL TABLET 1 tab daily LUTEIN 28252075 408 Active Hope Benavidez MD PhD Active TRIAMTERENE-HCTZ 37.5-25 MG ORAL TABLET 1 tab by mouth daily 10/22 TRIAMTERENE-HCTZ 48381417959 Active LETY Rossi CYCLOBENZAPRINE HCL 10 MG ORAL TABLET 1 tablet by mout h three times daily as needed for headaches CYCLOBENZAPRINE HCL 26842417187 No Longer Active Adam Yates MD Active OMEPRAZOLE 20 MG ORAL CAPSULE DELAYED RELEASE 1 tablet by mo [facility] daily for GERD OMEPRAZOLE 24597795870 No Longer Active Adam Yates MD Active ZOFRAN 8 MG ORAL TABLET 1 tab by mouth every 12 hours prn 4 ONDANSETRON HCL 08628255233 No Longer Active Adam Yates MD Active PHENADOZ 25 MG RECTAL SUPPOSITORY 1 every 4 hrs. PRN 2 PROMETHAZINE HCL 52816519670 No Longer Active Adam Yates MD A ctive POTASSIUM CHLORIDE 20 MEQ ORAL PACKET by mouth twice a day prn 2 POTASSIUM CHLORIDE 03089277111 No Longer Active Adam Carpenter MD Active PROMETHAZINE HCL 25 MG ORAL TABLET 1 Q. 4 hr. PRN PROMETHAZINE HCL 42079742893 No Longer Active Adam Yates MD Active INNOPRAN XL 120 MG ORAL CAPSULE EXTENDED RELEASE 24 HO UR Take one by mouth daily PROPRANOLOL HCL SR BEADS 94544205878 No Longer Active Adam Yates MD Active FLAGYL 500 MG ORAL TABLET 1 pill by mouth three times daily, for diarrhea METRONIDAZOLE 42546696648 No Longer Active Hope landers MD PhD Active DYAZIDE 37.5-25 MG ORAL CAPSULE 1 qd TRIA MTERENE-HCTZ 97658600162 No Longer Active Hope Benavidez MD PhD Active PROZAC 20 MG ORAL CAPSULE 1 q d FLUOXETINE HCL 99901427798 No Longer Active Hope Benavidez MD PhD Active SIMVASTATIN 40 MG ORAL TABLET 1 qd SIMVAS TATIN 74970796459 No Longer Active Adam Yates MD Active MELOXICAM 15 MG ORAL TABLET 1 qd MELOXICAM 41676647494 No Longer Active Adam Yates MD Active IMODIUM A-D 2 MG ORAL TABLET 2 onset at diarrhea and prn. LOPERAMIDE HCL 16467932481 Active Hope Benavidez MD PhD Active EXCEDRIN EXTRA STRENGTH 250-250-65 MG ORAL TABLET 1-2 q6h IN N headache [id number] 03296414813 Active Hope Benavidez MD PhD Active FLAGYL 500 MG ORAL TABLET 1 qid METRONIDAZOL E 14193934488 No Longer Active Adam Yates MD Active LEVAQUIN 750 MG ORAL TABLET 1 qd LEVOFLOXAC IN 92274691759 No Longer Active Adam Yates MD Active ADULT ASPIRIN LOW STRENGTH 81 MG ORAL TABLET DISINTEGRATING 1 qd ASPIRIN 99458859074 Active Hope Benavidez MD PhD Active LEVAQUIN 750 MG ORAL TABLET 1 qd LEVAQUIN 750 MG ORAL TABLET 564173 LEVOFLOXACIN Inactive FLAGYL 500 MG ORAL TABLET 1 qid FLAGYL 500 MG ORAL TABLET 691896 METRONIDAZOLE Inactive MELOXICAM 15 MG ORAL TABLET 1 qd MELOXICAM 15 MG ORAL TABLET 073337 MELOXICAM Inactive SIMVASTATIN 40 MG ORAL TABLET 1 qd SIMVASTATIN 40 MG ORAL TABLET 583651 SIMVASTATIN Inactive PROZAC 20 MG ORAL CAPSULE 1 q d PROZAC 20 MG ORAL CAPSULE 023247 FLUOXETINE HCL Inactive DYAZIDE 37.5-25 MG ORAL CAPSULE 1 qd 5 DYAZIDE 37.5-25 MG ORAL CAPSULE 008510 TRIAMTERENE-HCTZ Inactive INNOPRAN XL 120 MG ORAL CAPSULE EXTENDED RELEASE 24 HO UR Take one by mouth daily INNOPRAN XL 120 MG ORAL CAPSULE EXTENDED RELEASE 24 HOUR PROPRANOLOL HCL SR BEADS Inactive PROMETHAZINE HCL 25 MG ORAL TABLET 1 Q. 4 hr. PRN 2013 PROMETHAZINE HCL 25 MG ORAL TABLET 204965 PROMETHAZINE HCL Inactive POTASSIUM CHLORIDE 20 MEQ ORAL PACKET by mouth twice a day prn 2 POTASSIUM CHLORIDE 20 MEQ ORAL PACKET 3013450 POTASSIUM CHLORIDE Inactive PHENADOZ 25 MG RECTAL SUPPOSITORY 1 every 4 hrs. PRN 2 PHENADOZ 25 MG RECTAL SUPPOSITORY 303967 PROMETHAZINE HCL Inactive ZOFRAN 8 MG ORAL TABLET 1 tab by mouth every 12 hours prn 4 ZOFRAN 8 MG ORAL TABLET 697257 ONDANSETRON HCL Inactive OMEPRAZOLE 20 MG ORAL CAPSULE DELAYED RELEASE 1 tablet by mo uth daily for GERD OMEPRAZOLE 20 MG ORAL CAPSULE DELAYED RELEASE 19 8051 OMEPRAZOLE Inactive CYCLOBENZAPRINE HCL 10 MG ORAL TABLET 1 tablet by mout h three times daily as needed for headaches CYCLOBENZAPRINE HCL 10 MG ORAL TABLET 753285 CYCLOBENZAPRINE HCL Inactive VITAMIN D3 4000 IU 1 tab 3 times daily VITAMIN D3 4000 IU Inactive PROPRANOLOL HCL 80 MG ORAL TABLET 1 tab tue. and thur. PROPRANOLOL HCL 80 MG ORAL TABLET 337811 PROPRANOLOL HCL Inacti ve CYANOCOBALAMIN 1000 MCG/ML INJECTION SOLUTION 1 injection ev ruben 2 weeks CYANOCOBALAMIN 1000 MCG/ML INJECTION SOLUTION 30 9594 CYANOCOBALAMIN Inactive MAGNESIUM GLUCONATE 250 MG ORAL TABLET 1 tab tid 20 23/10/23 MAGNESIUM GLUCONATE 250 MG ORAL TABLET 994837 MAGNESIUM GLUCONATE Inactive LOMOTIL 2.5-0.025 MG ORAL TABLET 1 tab by mouth prn 20 23/10/23 LOMOTIL 2.5-0.025 MG ORAL TABLET 9389163 DIPHENOXYLATE-ATROPINE Inac tive FLORANEX ORAL PACKET 1 pack three times daily, for bowel health FLORANEX ORAL PACKET LACTOBACILLUS Inactive IRON 325 (65 Fe) MG ORAL TABLET 1 every other day 2015 IRON 325 (65 Fe) MG ORAL TABLET 242628 FERROUS SULFATE Inactive FLAGYL 500 MG ORAL TABLET 1 pill by mouth three times daily, for diarrhea FLAGYL 500 MG ORAL TABLET 304925 METRONIDAZOLE I nactive BACTRIM DS 800-160 MG ORAL TABLET 1 pill by mouth twice claudio y, for UTI BACTRIM DS 800-160 MG ORAL TABLET 189311 SULFAMETHOXAZOLE-TRIMETHOPRIM Inactive Advance Directives Directive Description Start [...] Name Value Unit Range Description blood pressure, diastolic 49 mm[Hg] BP dobson blood pressure, systolic 130 mm[Hg] BP sys height E&M 63 [in_us] Bdy height pulse rate E&M 60 /min Heart rate temperature E&M 97.9 [degF] Body temp erature weight E&M 131 [lb_av] Weight Measure d blood pressure, diastolic 70 mm[Hg] BP dobson blood pressure, systolic 141 mm[Hg] BP sys height E&M 63 [in_us] Bdy height pulse rate E&M 57 /min Heart rate temperature E&M 97.9 [degF] Body temp erature weight E&M 134.5 [lb_av] Weight Measure d blood pressure, diastolic 68 mm[Hg] BP dobson blood pressure, systolic 120 mm[Hg] BP sys height E&M 63 [in_us] Bdy height pulse rate E&M 78 /min Heart rate temperature E&M 97.5 [degF] Body temp erature weight E&M 136.5 [lb_av] Weight Measure d Diagnostic Results Date Name Value Unit Range Description Lab Report: Calcium - Chemistry calcium, serum 9.9 mg/dL 8.5-10.1 Lab Report: CBC (INCLUDES DIFF/PLT)/6399 - Hematology leukocyte count, blood 6.3 THOUSAND/UL 10*3/mm3 3.8-10.8 erythrocyte (RBC) count 4.68 MILLION/UL 10*6/mm3 3.80-5. 10 hemoglobin, blood 14.9 g/dL 11.7-15.5 hematocrit, blood 44.2 % 35.0-45.0 mean corpuscular volume, RBC 94.4 fL 80.0-10 0.0 mean corpuscular hemoglobin, RBC 31.8 pg 27. 0-33.0 mean corpuscular hemoglobin concentration, RBC 33.7 G/DL % 32.0-36.0 red blood cell distribution width 13.5 % 11 .0-15.0 platelet count 157 THOUSAND/UL 10*3/mm3 025-774 4952/04/20 mean platelet volume 8.9 fL 7.5-12.5 Lab Report: CEA - Serology carcinoembryonic antigen 0.9 ng/mL Encounters Code Encounter Date Provider Facility CPT-88441 Level 2 Est. Patient 14:27:16 PROGRAMS DIRECTOR Kylie Lund [facility] CPT-30406 Level 3 Est. Patient 17:54:48 CDT Kylie Lund [facility] CPT-81540 Level 3 Est. Patient 16:26:30 CDT Kina blackmon [facility] CPT-14360 Level 3 New Patient 16:22:01 PROGRAMS DIRECTOR Adam Yates MD [facility] CPT-15207 Level 4 Est. Patient 17:00:48 CDT Kylie Lund [facility] CPT-01251 Level 3 Est. Patient 13:15:54 CDT Kylie Lund [facility] CPT-39299 Level 3 Est. Patient 09:10:11 CDT Kylie Lund [facility] CPT-39855 Level 4 Est. Patient 12:08:30 PROGRAMS DIRECTOR Hope cohn MD PhD [facility] CPT-05700 Level 4 Est. Patient 19:08:42 PROGRAMS DIRECTOR Hope cohn MD PhD [facility] CPT-48150 Level 4 Est. Patient 20:04:51 CDT Hope cohn MD PhD [facility] CPT-70752 Level 3 New Patient 01:46:11 PROGRAMS DIRECTOR Hope landers MD PhD [facility] Procedures Code Procedure Name Date Entry Date Standard Desc ription CPT-22089 Microalbumin - LAB USE ONLY 09:41:32 PROGRAMS DIRECTOR 20 23/01/15 CPT-55841 Free T4 - LAB USE ONLY 09:41:32 PROGRAMS DIRECTOR CPT-69059 TSH - LAB USE ONLY 09:41:32 PROGRAMS DIRECTOR CPT-42734 BMP - LAB USE ONLY 09:41:32 PROGRAMS DIRECTOR CPT-74739 Venipuncture Draw Fee 09:41:32 PROGRAMS DIRECTOR CPT-37765 First Vx - Ix admin for Medicare patients 11:19:30 CDT CPT-15164 Fluzone High-Dose Intramuscular Suspension 12/07 11:19:30 CDT CPT-J0897 Prolia 60 mg 14:55:42 CDT CPT-92294 Abx/Therapy Injection 14:55:42 CDT CPT-37007 Bone Density - XRAY USE ONLY 10:27:12 CDT 2 CPT-G0439 [facility] Annual Wellness Exam 17:54:53 CDT CPT-98779 Foot, left, comp min 3V - XRAY USE ONLY 12:22:49 CDT CPT-G0009 Administration of Pneumococcal Vaccine 3 12:18:00 CDT CPT-67359 Pneumovax 23 Injection Injectable 25 MCG /0.5ML 12:18:00 CDT CPT-J0897 Prolia 60 mg 14:14:16 PROGRAMS DIRECTOR CPT-91264 Abx/Therapy Injection 14:14:15 PROGRAMS DIRECTOR CPT-45560 Lipid - LAB USE ONLY 10:01:52 PROGRAMS DIRECTOR 2 CPT-30587 Calcium - LAB USE ONLY 10:01:51 PROGRAMS DIRECTOR CPT-58838 Venipuncture Draw Fee 10:01:51 PROGRAMS DIRECTOR CPT-LR Lesion Removal 16:22:01 PROGRAMS DIRECTOR CPT-65387 TSH - LAB USE ONLY 14:26:02 CDT CPT-87514 CMP - LAB USE ONLY 14:26:01 CDT CPT-86600 CBC with Diff - LAB USE ONLY 14:26:01 CDT 2 CPT-17452 Venipuncture Draw Fee 14:26:01 CDT CPT-45393 First Vx - Ix admin for Medicare patients 13:27:08 CDT CPT-98031 Fluzone High-Dose Intramuscular Suspension 11/26 13:27:08 CDT CPT-G0438 Initial Annual Wellness Exam 14:19:57 CD T CPT-G0009 Administration of Pneumococcal Vaccine 9 11:36:25 CDT CPT-98124 Prevnar 13 Intramuscular Suspension 1 1:36:25 CDT CPT-95755 Prevnar 13 Intramuscular Suspension 1 0:40:58 CDT CPT-J0897 Prolia 60 mg 10:37:16 CDT CPT-86860 Abx/Therapy Injection 10:37:16 CDT CPT-J0897 Prolia 60 mg 16:09:34 PROGRAMS DIRECTOR CPT-J0897 Prolia 60 mg 11:10:35 PROGRAMS DIRECTOR CPT-84991 Abx/Therapy Injection 11:10:35 PROGRAMS DIRECTOR CPT-000 Give Appropriate Flu Vaccine 17:01:15 PROGRAMS DIRECTOR 2 CPT-48348 Fluzone High Dose (65+) 15:03:08 PROGRAMS DIRECTOR 02/15 CPT-88012 Immunization Single Admin 15:03:08 PROGRAMS DIRECTOR 2014 CPT-OV Office Visit 15:58:06 CDT CPT-J0897 Prolia 60 mg 08:45:38 CDT CPT-59116 Abx/Therapy Injection 08:45:38 CDT CPT-J3420 Vitamin B12 1000mcg (Cyanocobalamin) 09:26:20 PROGRAMS DIRECTOR CPT-64699 Abx/Therapy Injection 09:26:20 PROGRAMS DIRECTOR CPT-J3420 Vitamin B12 1000mcg (Cyanocobalamin) 09:44:40 PROGRAMS DIRECTOR CPT-22185 Abx/Therapy Injection 09:44:40 PROGRAMS DIRECTOR CPT-J3420 Vitamin B12 1000mcg (Cyanocobalamin) 09:15:54 PROGRAMS DIRECTOR CPT-20190 Abx/Therapy Injection 09:15:54 PROGRAMS DIRECTOR CPT-J3420 Vitamin B12 1000mcg (Cyanocobalamin) 09:46:44 PROGRAMS DIRECTOR CPT-15591 Abx/Therapy Injection 09:46:44 PROGRAMS DIRECTOR CPT-J3420 Vitamin B12 1000mcg (Cyanocobalamin) 09:47:34 PROGRAMS DIRECTOR CPT-62600 Abx/Therapy Injection 09:47:34 PROGRAMS DIRECTOR CPT-J3420 Vitamin B12 1000mcg (Cyanocobalamin) 14:35:50 PROGRAMS DIRECTOR CPT-J3420 Vitamin B12 1000mcg (Cyanocobalamin) 09:25:05 PROGRAMS DIRECTOR CPT-45440 Abx/Therapy Injection 09:25:05 PROGRAMS DIRECTOR CPT-G0008 Administration of Influenza Virus Vaccine 13:36:47 CDT CPT-03649 Fluzone High-Dose Intramuscular Suspension 11/15 13:36:47 CDT CPT-J0897 Prolia 60 mg 08:50:41 CDT CPT-05588 Abx/Therapy Injection 08:50:41 CDT CPT-60977 Bone Density 12:06:12 CDT CPT-92638 Bone Density 08:54:40 CDT CPT-OV Office Visit 15:37:02 CDT CPT-38621 Postop F/U Visit 15:47:49 CDT CPT-45621 Postop F/U Visit 15:21:02 CDT CPT-[facility] Transitional Care Mgmt-High 07:52:27 CDT 20 20/06/01 CPT-50259 Venipuncture Draw Fee 13:51:18 CDT CPT-81784 Venipuncture Draw Fee 10:14:55 PROGRAMS DIRECTOR CPT-38327 Venipuncture Draw Fee 13:39:45 PROGRAMS DIRECTOR CPT-OV Office Visit 15:11:22 PROGRAMS DIRECTOR CPT-84026 Venipuncture Draw Fee 09:20:49 PROGRAMS DIRECTOR CPT-62382 Venipuncture Draw Fee 16:52:15 PROGRAMS DIRECTOR CPT-80001 Venipuncture Draw Fee 10:37:24 PROGRAMS DIRECTOR CPT-89054 Venipuncture Draw Fee 08:21:21 PROGRAMS DIRECTOR CPT-40459 Venipuncture Draw Fee 08:30:20 PROGRAMS DIRECTOR CPT-37134 Venipuncture Draw Fee 14:53:21 PROGRAMS DIRECTOR CPT-56133 Venipuncture Draw Fee 09:40:56 PROGRAMS DIRECTOR CPT-40635 Venipuncture Draw Fee 10:30:47 PROGRAMS DIRECTOR CPT-31267 Venipuncture Draw Fee 10:46:17 PROGRAMS DIRECTOR CPT-21029 Venipuncture Draw Fee 11:12:45 PROGRAMS DIRECTOR CPT-44367 Venipuncture Draw Fee 09:53:33 PROGRAMS DIRECTOR CPT-64751 Venipuncture Draw Fee 11:53:51 PROGRAMS DIRECTOR CPT-89375 Venipuncture Draw Fee 10:33:50 PROGRAMS DIRECTOR CPT-96493 Venipuncture Draw Fee 10:05:01 PROGRAMS DIRECTOR CPT-78374 Venipuncture Draw Fee 14:32:52 PROGRAMS DIRECTOR CPT-38351 Venipuncture Draw Fee 09:46:13 PROGRAMS DIRECTOR CPT-10564 Venipuncture Draw Fee 11:34:27 PROGRAMS DIRECTOR CPT-31054 Venipuncture Draw Fee 13:17:16 PROGRAMS DIRECTOR CPT-99002 Venipuncture Draw Fee 12:05:39 CDT CPT-97211 Venipuncture Draw Fee 12:49:12 CDT CPT-79379 Venipuncture Draw Fee 12:37:18 CDT CPT-86362 Venipuncture Draw Fee 10:57:11 CDT CPT-88128 Venipuncture Draw Fee 13:47:40 CDT CPT-70107 Venipuncture Draw Fee 10:02:17 CDT CPT-22827 TB Tubersol 17:32:32 CDT CPT-OV Office Visit 16:21:53 CDT CPT-OV Office Visit 15:49:22 CDT CPT-OV Office Visit 17:16:31 CDT CPT-OV Office Visit 10:43:31 CDT
--- OUTSIDE RECORDS SUMMARY | 2019-02-09 12:11 | XMS REPORT | Clinical Summary ---
Author Author Renaldo, Florecita Munoz Organization [facility] [employer] Address Unknown Phone Unavailable Allergies, Adverse Reactions, [...] ADENOCARCINOMA, ASCENDING COLON 153.6 Correction 2012 Hope Benaivdez MD PhD Malignant neoplasm of ascending colon Hyperkalemia 276.7 Resolved Hope Benavidez MD PhD Hyperpotassemia GERD 530.81 Resolved Kylie Yokum CUT OFF SAW SET UP OPERATOR Esophageal reflux Health maintenance exam V70.0 Resolved Adolfo Yates MD Routine general medical examination at a health care facility Anemia 285.9 Resolved Kylie Holt CUT OFF SAW SET UP OPERATOR Anemia, unspecified Personal history of malignant neoplasm of large intestine V10.05 Active Adam Yates MD Personal history of malignant neoplasm of large intestine Hypomagnesemia 275.2 Resolved Kylie Holt CUT OFF SAW SET UP OPERATOR Disorders of magnesium metabolism Weakness 780.79 [...] Sebaceous cyst, scalp 706.2 Resolved Kylie Yokum CUT OFF SAW SET UP OPERATOR Sebaceous cyst Cervical lymphadenopathy, anterior, left 785.6 Resolv ed Kylie Yokum CUT OFF SAW SET UP OPERATOR Enlargement of lymph nodes Need for prophylactic vaccination and inoculation against in fluenza V04.81 Resolved Adam Yates MD Need for prophylactic vaccination and inoculation against influenza Preventive health care V70.0 Resolved Kylie Escalonaku m CUT OFF SAW SET UP OPERATOR Routine general medical examination at a health care facility Thyroid nodule, left 241.0 Active Kylie Yokum A PRN Nontoxic uninodular goiter Screening mammogram V76.12 Resolved Kylie Yokum A PRN Other screening mammogram Mandy 706.2 Resolved Kylie Yokum CUT OFF SAW SET UP OPERATOR Sebaceous cyst Colon cancer, ascending 153.6 Resolved Kylie Yok um CUT OFF SAW SET UP OPERATOR Malignant neoplasm of ascending colon Foot pain, left 729.5 Resolved Kylie Yokum CUT OFF SAW SET UP OPERATOR Pain in limb Splinter 919.6 Resolved Kylie Yokum CUT OFF SAW SET UP OPERATOR Superficial foreign body (splinter) of other, multiple, and unspecified sites, without major open wound and without mention of infection Rash 782.1 Resolved Kylie Yokum CUT OFF SAW SET UP OPERATOR Rash and other nonspecific skin eruption Cyst 706.2 Resolved Kylie Yokum CUT OFF SAW SET UP OPERATOR Sebaceous cyst Body Mass Index 23.0-23.9 Adult Active Kylie Yokum CUT OFF SAW SET UP OPERATOR Body Mass Index between 19-24, adult Unspecified fall, initial encounter E888.9 Inactive Kylieshubham Holt CUT OFF SAW SET UP OPERATOR Unspecified fall Eye pain, left 379.91 Inactive Kylie Yokum CUT OFF SAW SET UP OPERATOR Pain in or around eye Pharyngitis, acute 074.0 Active Kylieshubham Holt APR N Herpangina ABDOMINAL PAIN, RIGHT LOWER QUADRANT ICD-789.03 Inactive Kina Joshua CUT OFF SAW SET UP OPERATOR ADENOCARCINOMA, COLON, 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 Dick Yates MD ABDOMINAL PAIN, GENERALIZED ICD-789.07 Inactive Hope Benavidez MD PhD FEVER UNSPECIFIED ICD-780.60 Inactive Hope cohn MD PhD UNSPECIFIED VENOUS INSUFFICIENCY ICD-459.81 Elda ctive Adam Yates MD ADENOCARCINOMA, 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 Inac tive Hope Benavidez MD PhD Hyperkalemia ICD-276.7 Inactive Hope Benavidez MD PhD GERD ICD-530.81 Inactive Kylie Lundum CUT OFF SAW SET UP OPERATOR 2015 Health maintenance exam ICD-V70.0 Bam Yates MD Anemia ICD-285.9 Inactive Kylie Lundum CUT OFF SAW SET UP OPERATOR 07/24 Hypomagnesemia ICD-275.2 Inactive Kylie Yokum CUT OFF SAW SET UP OPERATOR Weakness ICD-780.79 Inactive Hope Benavidez MD [...] cyst, scalp ICD-706.2 Inactive Tracy hi Yokum CUT OFF SAW SET UP OPERATOR Cervical lymphadenopathy, anterior, left ICD-785.6 Inactive Kylie Yokum CUT OFF SAW SET UP OPERATOR Need for prophylactic vaccination and inoculation against in fluenza ICD-V04.81 Inactive Adam Yates MD Preventive health care ICD-V70.0 Inactive Ka thi Yokum CUT OFF SAW SET UP OPERATOR Screening mammogram ICD-V76.12 Inactive Kylie Yokum CUT OFF SAW SET UP OPERATOR Mandy ICD-706.2 Inactive Kylie Yokum CUT OFF SAW SET UP OPERATOR 07/20 Colon cancer, ascending ICD-153.6 Inactive K athi Yokum CUT OFF SAW SET UP OPERATOR Foot pain, left ICD-729.5 Inactive Kylie Yokum CUT OFF SAW SET UP OPERATOR Splinter ICD-919.6 Inactive Kylie Yokum CUT OFF SAW SET UP OPERATOR 2017 Rash ICD-782.1 Inactive Kylie Yokum CUT OFF SAW SET UP OPERATOR 07/25 Cyst ICD-706.2 Inactive Kylie Lundum CUT OFF SAW SET UP OPERATOR 08/11 Unspecified fall, initial encounter ICD-E888.9 Inactive Kylie Holt CUT OFF SAW SET UP OPERATOR Eye pain, left ICD-379.91 Inactive Kylie Holt CUT OFF SAW SET UP OPERATOR Medication List Medication Instructions Start Date Stop Date Generic Name ND Status Provider Patient Instruction IMODIUM A-D 2 MG ORAL TABLET 1 tablet twice a day LOPERAMIDE HCL 47995004896 Active Kylie Holt CUT OFF SAW SET UP OPERATOR Active VOLTAREN 1 % TRANSDERMAL GEL apply q 6-8 hour to left arm as needed for pain DICLOFENAC SODIUM 65524242012 Active Kylie Holt APRN Active COQ10 100 MG ORAL CAPSULE 1 daily COENZYME Q10 709305 39931 Active LETY Nation Active VITAMIN D3 2000 UNIT ORAL CAPSULE Melaleuca-One daily CHOLECALCIFEROL 89469536457 Active Kylie Holt APRN Active PROBIOTIC DAILY ORAL CAPSULE Take one daily PROBIO TIC PRODUCT 29108956490 Active Kylie Holt APRN Active IRON 325 (65 Fe) MG ORAL TABLET 1 every other day FERROUS SULFATE 39999654530 No Longer Active Kylie Holt APRN Active FLORANEX ORAL PACKET 1 pack three times daily, for bowel health LACTOBACILLUS 38944973730 No Longer Active Kylie Holt APRN Active LOMOTIL 2.5-0.025 MG ORAL TABLET 1 tab by mouth prn 23/10/23 DIPHENOXYLATE-ATROPINE 46340705999 No Longer Active Kylie Lundum CUT OFF SAW SET UP OPERATOR Active MAGNESIUM GLUCONATE 250 MG ORAL TABLET 1 tab tid 23/10/23 MAGNESIUM GLUCONATE 39325427462 No Longer Active Kylie Lundum CUT OFF SAW SET UP OPERATOR Active CYANOCOBALAMIN 1000 MCG/ML INJECTION SOLUTION 1 injection ev ruben 2 weeks CYANOCOBALAMIN 13291998503 No Longer Active Kylie Lund um CUT OFF SAW SET UP OPERATOR Active ATENOLOL 25 MG ORAL TABLET 1/2 pill by mouth daily, fo r headaches, blood pressure ATENOLOL 76766486349 Active Kylie Holt CUT OFF SAW SET UP OPERATOR Active PROPRANOLOL HCL 80 MG ORAL TABLET 1 tab tue. and thur. PROPRANOLOL HCL 39658114767 No Longer Active Hope Benavidez MD PhD A ctive VITAMIN D3 4000 IU 1 tab 3 times daily VITAMIN D3 4000 IU No Longer Active Hope Benavidez MD PhD Active BACTRIM DS 800-160 MG ORAL TABLET 1 pill by mouth twice claudio y, for UTI SULFAMETHOXAZOLE-TRIMETHOPRIM 78666921584 No Longer Active Hope Benavidez MD PhD Active PROLIA 60 MG/ML SUBCUTANEOUS SOLUTION 1 shot every 6 months for osteoprosis DENOSUMAB 56160679327 Active Hope Benavidez MD PhD Active CALCIUM + D + K 750-500-40 MG-UNT-MCG ORAL TABLET 1 tab by m out twice daily CALCIUM-VITAMIN D-VITAMIN K 87002664252 Active Hope valdez MD PhD Active DAILY VALUE MULTIVITAMIN ORAL TABLET 1 tab by mouth twice daily 201 05/16/14 MULTIPLE VITAMIN 36750371886 Active Hope Benavidez MD PhD Acti ve FISH OIL 306 MG CAPS 1 tab by mouth three times daily OMEGA-3 FATTY ACIDS 38943000470 Active Hope Benavidez MD PhD Active LUTEIN 10 MG ORAL TABLET 1 tab daily LUTEIN 44808965 408 Active Hope Benavidez MD PhD Active TRIAMTERENE-HCTZ 37.5-25 MG ORAL TABLET 1 tab by mouth daily 10/22 TRIAMTERENE-HCTZ 71748165547 Active Kylie Holt CUT OFF SAW SET UP OPERATOR Active CYCLOBENZAPRINE HCL 10 MG ORAL TABLET 1 tablet by mout h three times daily as needed for headaches CYCLOBENZAPRINE HCL 32021555413 No Longer Active Adam Yates MD Active OMEPRAZOLE 20 MG ORAL CAPSULE DELAYED RELEASE 1 tablet by mo uth daily for GERD OMEPRAZOLE 67216310184 No Longer Active Adam Yates MD Active ZOFRAN 8 MG ORAL TABLET 1 tab by mouth every 12 hours prn 4 ONDANSETRON HCL 64753033370 No Longer Active Adam Yates MD Active PHENADOZ 25 MG RECTAL SUPPOSITORY 1 every 4 hrs. PRN 2 PROMETHAZINE HCL 85238085203 No Longer Active Adam Yates MD A ctive POTASSIUM CHLORIDE 20 MEQ ORAL PACKET by mouth twice a day prn 2 POTASSIUM CHLORIDE 94601640423 No Longer Active Adam Carpenter MD Active PROMETHAZINE HCL 25 MG ORAL TABLET 1 Q. 4 hr. PRN PROMETHAZINE HCL 87039422272 No Longer Active Adam Yates MD Active INNOPRAN XL 120 MG ORAL CAPSULE EXTENDED RELEASE 24 HO UR Take one by mouth daily PROPRANOLOL HCL SR BEADS 80510096051 No Longer Active Adam Yates MD Active FLAGYL 500 MG ORAL TABLET 1 pill by mouth three times daily, for diarrhea METRONIDAZOLE 98361015208 No Longer Active Hope landers MD PhD Active DYAZIDE 37.5-25 MG ORAL CAPSULE 1 qd TRIA MTERENE-HCTZ 51329810449 No Longer Active Hope Benavidez MD PhD Active PROZAC 20 MG ORAL CAPSULE 1 q d FLUOXETINE HCL 66061965458 No Longer Active Hope Benavidez MD PhD Active SIMVASTATIN 40 MG ORAL TABLET 1 qd SIMVAS TATIN 62552169906 No Longer Active Adam Yates MD Active MELOXICAM 15 MG ORAL TABLET 1 qd MELOXICAM 22532126066 No Longer Active Adam Yates MD Active EXCEDRIN EXTRA STRENGTH 250-250-65 MG ORAL TABLET 1-2 q6h UT N headache [id number] 33798322389 Active Hope Benavidez MD PhD Active FLAGYL 500 MG ORAL TABLET 1 qid METRONIDAZOL E 59954631902 No Longer Active Adam Yates MD Active LEVAQUIN 750 MG ORAL TABLET 1 qd LEVOFLOXAC IN 17704302810 No Longer Active Adam Yates MD Active ADULT ASPIRIN LOW STRENGTH 81 MG ORAL TABLET DISINTEGRATING 1 qd ASPIRIN 75264939904 Active Hope Benavidez MD PhD Active LEVAQUIN 750 MG ORAL TABLET 1 qd LEVAQUIN 750 MG ORAL TABLET 172814 LEVOFLOXACIN Inactive FLAGYL 500 MG ORAL TABLET 1 qid FLAGYL 500 MG ORAL TABLET 335173 METRONIDAZOLE Inactive MELOXICAM 15 MG ORAL TABLET 1 qd MELOXICAM 15 MG ORAL TABLET 707781 MELOXICAM Inactive SIMVASTATIN 40 MG ORAL TABLET 1 qd SIMVASTATIN 40 MG ORAL TABLET 177093 SIMVASTATIN Inactive PROZAC 20 MG ORAL CAPSULE 1 q d PROZAC 20 MG ORAL CAPSULE 346641 FLUOXETINE HCL Inactive DYAZIDE 37.5-25 MG ORAL CAPSULE 1 qd 5 DYAZIDE 37.5-25 MG ORAL CAPSULE 362319 TRIAMTERENE-HCTZ Inactive INNOPRAN XL 120 MG ORAL CAPSULE EXTENDED RELEASE 24 HO UR Take one by mouth daily INNOPRAN XL 120 MG ORAL CAPSULE EXTENDED RELEASE 24 HOUR PROPRANOLOL HCL SR BEADS Inactive PROMETHAZINE HCL 25 MG ORAL TABLET 1 Q. 4 hr. PRN 2013 PROMETHAZINE HCL 25 MG ORAL TABLET 524011 PROMETHAZINE HCL Inactive POTASSIUM CHLORIDE 20 MEQ ORAL PACKET by mouth twice a day prn 2 POTASSIUM CHLORIDE 20 MEQ ORAL PACKET 4703579 POTASSIUM CHLORIDE Inactive PHENADOZ 25 MG RECTAL SUPPOSITORY 1 every 4 hrs. PRN 2 PHENADOZ 25 MG RECTAL SUPPOSITORY 342373 PROMETHAZINE HCL Inactive ZOFRAN 8 MG ORAL TABLET 1 tab by mouth every 12 hours prn 4 ZOFRAN 8 MG ORAL TABLET 387297 ONDANSETRON HCL Inactive OMEPRAZOLE 20 MG ORAL CAPSULE DELAYED RELEASE 1 tablet by mo [facility] daily for GERD OMEPRAZOLE 20 MG ORAL CAPSULE DELAYED RELEASE 19 8051 OMEPRAZOLE Inactive CYCLOBENZAPRINE HCL 10 MG ORAL TABLET 1 tablet by mout h three times daily as needed for headaches CYCLOBENZAPRINE HCL 10 MG ORAL TABLET 628072 CYCLOBENZAPRINE HCL Inactive VITAMIN D3 4000 IU 1 tab 3 times daily VITAMIN D3 4000 IU Inactive PROPRANOLOL HCL 80 MG ORAL TABLET 1 tab tue. and thur. PROPRANOLOL HCL 80 MG ORAL TABLET 403177 PROPRANOLOL HCL Inacti ve CYANOCOBALAMIN 1000 MCG/ML INJECTION SOLUTION 1 injection ev ruben 2 weeks CYANOCOBALAMIN 1000 MCG/ML INJECTION SOLUTION 30 9594 CYANOCOBALAMIN Inactive MAGNESIUM GLUCONATE 250 MG ORAL TABLET 1 tab tid 23/10/23 MAGNESIUM GLUCONATE 250 MG ORAL TABLET 497279 MAGNESIUM GLUCONATE Inactive LOMOTIL 2.5-0.025 MG ORAL TABLET 1 tab by mouth prn 23/10/23 LOMOTIL 2.5-0.025 MG ORAL TABLET 9297560 DIPHENOXYLATE-ATROPINE Inac tive FLORANEX ORAL PACKET 1 pack three times daily, for bowel health FLORANEX ORAL PACKET 50129770078 LACTOBACILLUS Inactive IRON 325 (65 Fe) MG ORAL TABLET 1 every other day 2015 IRON 325 (65 Fe) MG ORAL TABLET 053659 FERROUS SULFATE Inactive FLAGYL 500 MG ORAL TABLET 1 pill by mouth three times daily, for diarrhea FLAGYL 500 MG ORAL TABLET 279946 METRONIDAZOLE I nactive BACTRIM DS 800-160 MG ORAL TABLET 1 pill by mouth twice claudio y, for UTI BACTRIM DS 800-160 MG ORAL TABLET 352523 SULFAMETHOXAZOLE-TRIMETHOPRIM Inactive Advance Directives Directive Description Start [...] ... - Chemistry sodium, serum 138 mmol/L 383-838 8200/12/15 potassium, serum 4.0 mmol/L 3.5-5.2 chloride, serum [...] - Chem istry sodium, serum 142 mmol/L 198-253 0984/04/19 carbon dioxide, venous blood 30.2 mmol/L 21.0-32 [...] mg/dL Encounters Code Encounter Date Provider Facility CPT-43122 [id number] Vst-Est Level III 14:29:19 CDT Fiorella Holt [facility] [place] CPT-57547 Level 2 Est. Patient 14:58:26 CDT Kylie boyd [facility] [place] CPT-08743 Level 3 Est. Patient 08:15:24 SPOOLER Kylie Escalonagabbi [facility] [place] CPT-80224 Level 2 Est. Patient 14:27:16 SPOOLER Kylie Escalonagabbi [facility] [place] CPT-38399 Level 3 Est. Patient 17:54:48 CDT Kylei Yogabbi [facility] [place] CPT-88230 Level 3 Est. Patient 16:26:30 CDT Kina blackmon [facility] CPT-43610 Level 3 New Patient 16:22:01 SPOOLER Adam Yates MD [facility] CPT-33819 Level 4 Est. Patient 17:00:48 CDT Kylie Kevon [facility] [place] CPT-12071 Level 3 Est. Patient 13:15:54 CDT Kylie Lund [facility] CPT-09557 Level 3 Est. Patient 09:10:11 CDT Kylie Lund [facility] CPT-98180 Level 4 Est. Patient 12:08:30 SPOOLER Hope cohn MD PhD [facility] CPT-36797 Level 4 Est. Patient 19:08:42 SPOOLER Hope cohn MD PhD [facility] CPT-71785 Level 4 Est. Patient 20:04:51 CDT Hope cohn MD PhD [facility] CPT-11782 Level 3 New Patient 01:46:11 SPOOLER Hope landers MD PhD [facility] Procedures Code Procedure Name Date Entry Date Standard Desc ription CPT-G0439 [facility] Annual Wellness Exam 14:29:19 CDT CPT-33428 Venipuncture Draw Fee 10:59:04 CDT CPT-78584 CMP - LAB USE ONLY 10:59:04 CDT CPT-29576 CBC with Diff - LAB USE ONLY 10:59:03 CDT 2 CPT-J0897 Prolia 60 mg 15:46:54 SPOOLER CPT-56659 Abx/Therapy Injection 15:46:54 SPOOLER CPT-30232 Microalbumin - LAB USE ONLY 09:41:32 SPOOLER 20 23/01/15 CPT-11382 Free T4 - LAB USE ONLY 09:41:32 SPOOLER CPT-45914 TSH - LAB USE ONLY 09:41:32 SPOOLER CPT-95563 BMP - LAB USE ONLY 09:41:32 SPOOLER CPT-47572 Venipuncture Draw Fee 09:41:32 SPOOLER CPT-66799 First Vx - Ix admin for Medicare patients 11:19:30 CDT CPT-22780 Fluzone High-Dose Intramuscular Suspension 12/07 11:19:30 CDT CPT-J0897 Prolia 60 mg 14:55:42 CDT CPT-13546 Abx/Therapy Injection 14:55:42 CDT CPT-17898 Bone Density - XRAY USE ONLY 10:27:12 CDT 2 CPT-G0439 [facility] Subsequent Annual Wellness Exam 17:54:53 CDT CPT-82495 Foot, left, comp min 3V - XRAY USE ONLY 12:22:49 CDT CPT-G0009 Administration of Pneumococcal Vaccine 3 12:18:00 CDT CPT-82207 Pneumovax 23 Injection Injectable 25 MCG /0.5ML 12:18:00 CDT CPT-J0897 Prolia 60 mg 14:14:16 SPOOLER CPT-81842 Abx/Therapy Injection 14:14:15 SPOOLER CPT-81084 Lipid - LAB USE ONLY 10:01:52 SPOOLER 2 CPT-57008 Calcium - LAB USE ONLY 10:01:51 SPOOLER CPT-20101 Venipuncture Draw Fee 10:01:51 SPOOLER CPT-LR Lesion Removal 16:22:01 SPOOLER CPT-55326 TSH - LAB USE ONLY 14:26:02 CDT CPT-93527 CMP - LAB USE ONLY 14:26:01 CDT CPT-09064 CBC with Diff - LAB USE ONLY 14:26:01 CDT 2 CPT-05545 Venipuncture Draw Fee 14:26:01 CDT CPT-22536 First Vx - Ix admin for Medicare patients 13:27:08 CDT CPT-27295 Fluzone High-Dose Intramuscular Suspension 11/26 13:27:08 CDT CPT-G0438 Initial Annual Wellness Exam 14:19:57 CD T CPT-G0009 Administration of Pneumococcal Vaccine 9 11:36:25 CDT CPT-21562 Prevnar 13 Intramuscular Suspension 1 1:36:25 CDT CPT-07434 Prevnar 13 Intramuscular Suspension 1 0:40:58 CDT CPT-J0897 Prolia 60 mg 10:37:16 CDT CPT-66040 Abx/Therapy Injection 10:37:16 CDT CPT-J0897 Prolia 60 mg 16:09:34 SPOOLER CPT-J0897 Prolia 60 mg 11:10:35 SPOOLER CPT-34824 Abx/Therapy Injection 11:10:35 SPOOLER CPT-000 Give Appropriate Flu Vaccine 17:01:15 SPOOLER 2 CPT-62026 Fluzone High Dose (65+) 15:03:08 SPOOLER 02/15 CPT-08220 Immunization Single Admin 15:03:08 SPOOLER 2014 CPT-OV Office Visit 15:58:06 CDT CPT-J0897 Prolia 60 mg 08:45:38 CDT CPT-66893 Abx/Therapy Injection 08:45:38 CDT CPT-J3420 Vitamin B12 1000mcg (Cyanocobalamin) 09:26:20 SPOOLER CPT-60599 Abx/Therapy Injection 09:26:20 SPOOLER CPT-J3420 Vitamin B12 1000mcg (Cyanocobalamin) 09:44:40 SPOOLER CPT-17900 Abx/Therapy Injection 09:44:40 SPOOLER CPT-J3420 Vitamin B12 1000mcg (Cyanocobalamin) 09:15:54 SPOOLER CPT-78863 Abx/Therapy Injection 09:15:54 SPOOLER CPT-J3420 Vitamin B12 1000mcg (Cyanocobalamin) 09:46:44 SPOOLER CPT-12936 Abx/Therapy Injection 09:46:44 SPOOLER CPT-J3420 Vitamin B12 1000mcg (Cyanocobalamin) 09:47:34 SPOOLER CPT-40688 Abx/Therapy Injection 09:47:34 SPOOLER CPT-J3420 Vitamin B12 1000mcg (Cyanocobalamin) 14:35:50 SPOOLER CPT-J3420 Vitamin B12 1000mcg (Cyanocobalamin) 09:25:05 SPOOLER CPT-87378 Abx/Therapy Injection 09:25:05 SPOOLER CPT-G0008 Administration of Influenza Virus Vaccine 13:36:47 CDT CPT-76973 Fluzone High-Dose Intramuscular Suspension 11/15 13:36:47 CDT CPT-J0897 Prolia 60 mg 08:50:41 CDT CPT-61272 Abx/Therapy Injection 08:50:41 CDT CPT-50286 Bone Density 12:06:12 CDT CPT-31701 Bone Density 08:54:40 CDT CPT-OV Office Visit 15:37:02 CDT CPT-67182 Postop F/U Visit 15:47:49 CDT CPT-33759 Postop F/U Visit 15:21:02 CDT CPT-TCMH Transitional Care Mgmt-High 07:52:27 CDT 20 20/06/01 CPT-90913 Venipuncture Draw Fee 13:51:18 CDT CPT-18128 Venipuncture Draw Fee 10:14:55 SPOOLER CPT-49695 Venipuncture Draw Fee 13:39:45 SPOOLER CPT-OV Office Visit 15:11:22 SPOOLER CPT-51032 Venipuncture Draw Fee 09:20:49 SPOOLER CPT-04228 Venipuncture Draw Fee 16:52:15 SPOOLER CPT-52819 Venipuncture Draw Fee 10:37:24 SPOOLER CPT-66065 Venipuncture Draw Fee 08:21:21 SPOOLER CPT-10628 Venipuncture Draw Fee 08:30:20 SPOOLER CPT-29630 Venipuncture Draw Fee 14:53:21 SPOOLER CPT-55749 Venipuncture Draw Fee 09:40:56 SPOOLER CPT-23252 Venipuncture Draw Fee 10:30:47 SPOOLER CPT-26352 Venipuncture Draw Fee 10:46:17 SPOOLER CPT-68980 Venipuncture Draw Fee 11:12:45 SPOOLER CPT-07877 Venipuncture Draw Fee 09:53:33 SPOOLER CPT-21265 Venipuncture Draw Fee 11:53:51 SPOOLER CPT-13410 Venipuncture Draw Fee 10:33:50 SPOOLER CPT-45770 Venipuncture Draw Fee 10:05:01 SPOOLER CPT-02694 Venipuncture Draw Fee 14:32:52 SPOOLER CPT-80168 Venipuncture Draw Fee 09:46:13 SPOOLER CPT-48025 Venipuncture Draw Fee 11:34:27 SPOOLER CPT-95048 Venipuncture Draw Fee 13:17:16 SPOOLER CPT-66112 Venipuncture Draw Fee 12:05:39 CDT CPT-01486 Venipuncture Draw Fee 12:49:12 CDT CPT-76749 Venipuncture Draw Fee 12:37:18 CDT CPT-75713 Venipuncture Draw Fee 10:57:11 CDT CPT-92859 Venipuncture Draw Fee 13:47:40 CDT CPT-93677 Venipuncture Draw Fee 10:02:17 CDT CPT-23803 TB Tubersol 17:32:32 CDT CPT-OV Office Visit 16:21:53 CDT CPT-OV Office Visit 15:49:22 CDT CPT-OV Office Visit 17:16:31 CDT CPT-OV Office Visit 10:43:31 CDT
--- OUTSIDE RECORDS SUMMARY | 2019-02-09 12:12 | XMS REPORT | Clinical Summary ---
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 Kylie Holt APRN Personal history of other specified dise ases ADENOCARCINOMA, ASCENDING COLON 153.6 Correction 2012 Hope Benavidez MD PhD Malignant neoplasm of ascending colon Hyperkalemia 276.7 Resolved Hope Benavidez MD PhD Hyperpotassemia GERD 530.81 Resolved Kylie Yokum [employer] Esophageal reflux Health maintenance exam V70.0 Resolved Adolfo Yates MD Routine general medical examination at a health care facility Anemia 285.9 Resolved Kylie Yanet [employer] Anemia, unspecified Personal history of malignant neoplasm of large intestine V10.05 Active Adam Yates MD Personal history of malignant neoplasm of large intestine Hypomagnesemia 275.2 Resolved Kylie Yanet [employer] Disorders of magnesium metabolism Weakness 780.79 Resolved [...] Sebaceous cyst, scalp 706.2 Resolved Kylie Yokum [employer] Sebaceous cyst Cervical lymphadenopathy, anterior, left 785.6 Resolv ed Kylie Yokum [employer] Enlargement of lymph nodes Need for prophylactic vaccination and inoculation against in fluenza V04.81 Resolved Adam Yates MD Need for prophylactic vaccination and inoculation against influenza Preventive health care V70.0 Resolved Kylie Escalonaku m [employer] Routine general medical examination at a health care facility Thyroid nodule, left 241.0 Active Kylie Yokum A PRN Nontoxic uninodular goiter Screening mammogram V76.12 Resolved Kylie Yokum A PRN Other screening mammogram Mandy 706.2 Resolved Kylie Yokum [employer] Sebaceous cyst Colon cancer, ascending 153.6 Resolved Kylie Yok um [employer] Malignant neoplasm of ascending colon Foot pain, left 729.5 Resolved Kylei Yokum [employer] Pain in limb Splinter 919.6 Resolved Kylie Yokum [employer] Superficial foreign body (splinter) of other, multiple, and unspecified sites, without major open wound and without mention of infection Rash 782.1 Resolved Kylie Yokum [employer] Rash and other nonspecific skin eruption Cyst 706.2 Resolved Kylie Yokum [employer] Sebaceous cyst Body Mass Index 23.0-23.9 Adult Active Kylie Yokum [employer] Body Mass Index between 19-24, adult Unspecified fall, initial encounter E888.9 Inactive Kylie Yokum [employer] Unspecified fall Eye pain, left 379.91 Inactive Kylie Yokum [employer] Pain in or around eye Pharyngitis, acute 074.0 Active Kylie Yokum APR N Herpangina ADENOCARCINOMA, COLON, 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 Dick Yates MD ABDOMINAL PAIN, GENERALIZED ICD-789.07 Inactive Hope Benavidez MD PhD FEVER UNSPECIFIED ICD-780.60 Inactive Hope cohn MD PhD UNSPECIFIED VENOUS INSUFFICIENCY ICD-459.81 [place] ctive Adam Yates MD ADENOCARCINOMA, 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 Inac tive Hope Benavidez MD PhD Hyperkalemia ICD-276.7 Inactive Hope Benavidez MD PhD ABDOMINAL PAIN, RIGHT LOWER QUADRANT ICD-789.03 Inactive Kina Joshua [employer] Health maintenance exam ICD-V70.0 Bam Yates MD Anemia ICD-285.9 Inactive Kylie Yokum [employer] 07/24 GERD ICD-530.81 Inactive Kylie Yokum [employer] 2015 Hypomagnesemia ICD-275.2 Inactive Kylie Yokum [employer] Weakness ICD-780.79 Inactive Hope Benavidez MD P [...] lymphadenopathy, anterior, left ICD-785.6 Inactive Kylie Yokum [employer] Need for prophylactic vaccination and inoculation against in fluenza ICD-V04.81 Inactive Adam Yates MD Sebaceous cyst, scalp ICD-706.2 Inactive Tracy hi Yokum [employer] Preventive health care ICD-V70.0 Inactive Ka thi Yokum [employer] Mandy ICD-706.2 Inactive Kylie Yokum [employer] 07/20 Colon cancer, ascending ICD-153.6 Inactive K athi Yokum [employer] Splinter ICD-919.6 Inactive Kylie Yokum [employer] 2017 Rash ICD-782.1 Inactive Kylie Yokum [employer] 07/25 Cyst ICD-706.2 Inactive Kylie Yokum [employer] 08/11 Unspecified fall, initial encounter ICD-E888.9 Inactive Kylie Yokum [employer] Eye pain, left ICD-379.91 Inactive Kylie Holt [employer] Screening mammogram ICD-V76.12 Inactive Kylie Holt [employer] Foot pain, left ICD-729.5 Inactive Kylie Holt APRN Medication List Medication Instructions Start Date Stop Date Generic Name NDC Status Provider Patient Instruction IMODIUM A-D 2 MG ORAL TABLET 1 tablet twice a day LOPERAMIDE HCL 60441038608 Active Kylie Holt AMY Active VOLTAREN 1 % TRANSDERMAL GEL apply q 6-8 hour to left arm as needed for pain DICLOFENAC SODIUM 65455613285 Active Kylie Holt APRN Active COQ10 100 MG ORAL CAPSULE 1 daily COENZYME Q10 311577 16066 Active LETY Nation Active VITAMIN D3 2000 UNIT ORAL CAPSULE Melaleuca-One daily CHOLECALCIFEROL 24965203259 Active Kylie Holt APRN Active PROBIOTIC DAILY ORAL CAPSULE Take one daily PROBIO TIC PRODUCT 04041281248 Active Kylie Holt APRN Active IRON 325 (65 Fe) MG ORAL TABLET 1 every other day FERROUS SULFATE 31228401423 No Longer Active Kylie Holt APRN Active FLORANEX ORAL PACKET 1 pack three times daily, for bowel health LACTOBACILLUS 76475872150 No Longer Active Kylie Holt APRN Active LOMOTIL 2.5-0.025 MG ORAL TABLET 1 tab by mouth prn 23/10/23 DIPHENOXYLATE-ATROPINE 62562886208 No Longer Active Kylie Holt APRN Active MAGNESIUM GLUCONATE 250 MG ORAL TABLET 1 tab tid 23/10/23 MAGNESIUM GLUCONATE 85380658549 No Longer Active Kylie Holt APRN Active CYANOCOBALAMIN 1000 MCG/ML INJECTION SOLUTION 1 injection ev ruben 2 weeks CYANOCOBALAMIN 60814522924 No Longer Active Kylie Lund um [employer] Active ATENOLOL 25 MG ORAL TABLET 1/2 pill by mouth daily, fo r headaches, blood pressure ATENOLOL 92576572166 Active Kylie Escalonagabbioliver [employer] Active PROPRANOLOL HCL 80 MG ORAL TABLET 1 tab tue. and thur. PROPRANOLOL HCL 68501307230 No Longer Active Hope Benavidez MD PhD A ctive VITAMIN D3 4000 IU 1 tab 3 times daily VITAMIN D3 4000 IU No Longer Active Hope Benavidez MD PhD Active BACTRIM DS 800-160 MG ORAL TABLET 1 pill by mouth twice claudio y, for UTI SULFAMETHOXAZOLE-TRIMETHOPRIM 79472185232 No Longer Active Hope Benavidez MD PhD Active PROLIA 60 MG/ML SUBCUTANEOUS SOLUTION 1 shot every 6 months for osteoprosis DENOSUMAB 15330867668 Active Hope Benavidez MD PhD Active CALCIUM + D + K 750-500-40 MG-UNT-MCG ORAL TABLET 1 tab by m outh twice daily CALCIUM-VITAMIN D-VITAMIN K 03069677657 Active Hope valdez MD PhD Active DAILY VALUE MULTIVITAMIN ORAL TABLET 1 tab by mouth twice daily 201 05/16/14 MULTIPLE VITAMIN 30823244345 Active Hope Benavidez MD PhD Acti ve FISH OIL 306 MG CAPS 1 tab by mouth three times daily OMEGA-3 FATTY ACIDS 82762036946 Active Hope Benavidez MD PhD Active LUTEIN 10 MG ORAL TABLET 1 tab daily LUTEIN 22032175 408 Active Hope Benavidez MD PhD Active TRIAMTERENE-HCTZ 37.5-25 MG ORAL TABLET 1 tab by mouth daily 10/22 TRIAMTERENE-HCTZ 40240058386 Active Kylie Holt APRN Active CYCLOBENZAPRINE HCL 10 MG ORAL TABLET 1 tablet by mout h three times daily as needed for headaches CYCLOBENZAPRINE HCL 66619610944 No Longer Active Adam Yaets MD Active OMEPRAZOLE 20 MG ORAL CAPSULE DELAYED RELEASE 1 tablet by mo uth daily for GERD OMEPRAZOLE 52539882591 No Longer Active Adam Yates MD Active ZOFRAN 8 MG ORAL TABLET 1 tab by mouth every 12 hours prn 4 ONDANSETRON HCL 11873620039 No Longer Active Adam Yates MD Active PHENADOZ 25 MG RECTAL SUPPOSITORY 1 every 4 hrs. PRN 2 PROMETHAZINE HCL 13135193486 No Longer Active Adam Yates MD A ctive POTASSIUM CHLORIDE 20 MEQ ORAL PACKET by mouth twice a day prn 2 POTASSIUM CHLORIDE 60040844972 No Longer Active Adam Carpenter MD Active PROMETHAZINE HCL 25 MG ORAL TABLET 1 Q. 4 hr. PRN PROMETHAZINE HCL 14795027163 No Longer Active Adam Yates MD Active INNOPRAN XL 120 MG ORAL CAPSULE EXTENDED RELEASE 24 HO UR Take one by mouth daily PROPRANOLOL HCL SR BEADS 61557725628 No Longer Active Adam Yates MD Active FLAGYL 500 MG ORAL TABLET 1 pill by mouth three times daily, for diarrhea METRONIDAZOLE 49194859191 No Longer Active Hope landers MD PhD Active DYAZIDE 37.5-25 MG ORAL CAPSULE 1 qd TRIA MTERENE-HCTZ 37399413433 No Longer Active Hope Benavidez MD PhD Active PROZAC 20 MG ORAL CAPSULE 1 q d FLUOXETINE HCL 37907558590 No Longer Active Hope Benavidez MD PhD Active SIMVASTATIN 40 MG ORAL TABLET 1 qd SIMVAS TATIN 20117269946 No Longer Active Adam Yates MD Active MELOXICAM 15 MG ORAL TABLET 1 qd MELOXICAM 84269712111 No Longer Active Adam Yates MD Active EXCEDRIN EXTRA STRENGTH 250-250-65 MG ORAL TABLET 1-2 q6h ND N headache [id number] 55501611637 Active Hope Benavidez MD PhD Active FLAGYL 500 MG ORAL TABLET 1 qid METRONIDAZOL E 09995469645 No Longer Active Adam Yates MD Active LEVAQUIN 750 MG ORAL TABLET 1 qd LEVOFLOXAC IN 40474110955 No Longer Active Adam Yates MD Active ADULT ASPIRIN LOW STRENGTH 81 MG ORAL TABLET DISINTEGRATING 1 qd ASPIRIN 57541450380 Active Hope Benavidez MD PhD Active LEVAQUIN 750 MG ORAL TABLET 1 qd LEVAQUIN 750 MG ORAL TABLET 767523 LEVOFLOXACIN Inactive FLAGYL 500 MG ORAL TABLET 1 qid FLAGYL 500 MG ORAL TABLET 188555 METRONIDAZOLE Inactive MELOXICAM 15 MG ORAL TABLET 1 qd MELOXICAM 15 MG ORAL TABLET 310314 MELOXICAM Inactive SIMVASTATIN 40 MG ORAL TABLET 1 qd SIMVASTATIN 40 MG ORAL TABLET 884323 SIMVASTATIN Inactive PROZAC 20 MG ORAL CAPSULE 1 q d PROZAC 20 MG ORAL CAPSULE 916906 FLUOXETINE HCL Inactive DYAZIDE 37.5-25 MG ORAL CAPSULE 1 qd 5 DYAZIDE 37.5-25 MG ORAL CAPSULE 992110 TRIAMTERENE-HCTZ Inactive INNOPRAN XL 120 MG ORAL CAPSULE EXTENDED RELEASE 24 HO UR Take one by mouth daily INNOPRAN XL 120 MG ORAL CAPSULE EXTENDED RELEASE 24 HOUR PROPRANOLOL HCL SR BEADS Inactive PROMETHAZINE HCL 25 MG ORAL TABLET 1 Q. 4 hr. PRN 2013 PROMETHAZINE HCL 25 MG ORAL TABLET 931915 PROMETHAZINE HCL Inactive POTASSIUM CHLORIDE 20 MEQ ORAL PACKET by mouth twice a day prn 2 POTASSIUM CHLORIDE 20 MEQ ORAL PACKET 0680037 POTASSIUM CHLORIDE Inactive PHENADOZ 25 MG RECTAL SUPPOSITORY 1 every 4 hrs. PRN 2 PHENADOZ 25 MG RECTAL SUPPOSITORY 395976 PROMETHAZINE HCL Inactive ZOFRAN 8 MG ORAL TABLET 1 tab by mouth every 12 hours prn 4 ZOFRAN 8 MG ORAL TABLET 527398 ONDANSETRON HCL Inactive OMEPRAZOLE 20 MG ORAL CAPSULE DELAYED RELEASE 1 tablet by mo [facility] daily for GERD OMEPRAZOLE 20 MG ORAL CAPSULE DELAYED RELEASE 19 8051 OMEPRAZOLE Inactive CYCLOBENZAPRINE HCL 10 MG ORAL TABLET 1 tablet by mout h three times daily as needed for headaches CYCLOBENZAPRINE HCL 10 MG ORAL TABLET 292917 CYCLOBENZAPRINE HCL Inactive VITAMIN D3 4000 IU 1 tab 3 times daily VITAMIN D3 4000 IU Inactive PROPRANOLOL HCL 80 MG ORAL TABLET 1 tab tue. and thur. PROPRANOLOL HCL 80 MG ORAL TABLET 377437 PROPRANOLOL HCL Inacti ve CYANOCOBALAMIN 1000 MCG/ML INJECTION SOLUTION 1 injection ev ruben 2 weeks CYANOCOBALAMIN 1000 MCG/ML INJECTION SOLUTION 30 9594 CYANOCOBALAMIN Inactive MAGNESIUM GLUCONATE 250 MG ORAL TABLET 1 tab tid 23/10/23 MAGNESIUM GLUCONATE 250 MG ORAL TABLET 519274 MAGNESIUM GLUCONATE Inactive LOMOTIL 2.5-0.025 MG ORAL TABLET 1 tab by mouth prn 23/10/23 LOMOTIL 2.5-0.025 MG ORAL TABLET 8381293 DIPHENOXYLATE-ATROPINE Inac tive FLORANEX ORAL PACKET 1 pack three times daily, for bowel health FLORANEX ORAL PACKET 02465947523 LACTOBACILLUS Inactive IRON 325 (65 Fe) MG ORAL TABLET 1 every other day 2015 IRON 325 (65 Fe) MG ORAL TABLET 676283 FERROUS SULFATE Inactive FLAGYL 500 MG ORAL TABLET 1 pill by mouth three times daily, for diarrhea FLAGYL 500 MG ORAL TABLET 206921 METRONIDAZOLE I nactive BACTRIM DS 800-160 MG ORAL TABLET 1 pill by mouth twice claudio y, for UTI BACTRIM DS 800-160 MG ORAL TABLET 702533 SULFAMETHOXAZOLE-TRIMETHOPRIM Inactive Advance Directives Directive Description Start [...] m g/g{creat} 0-29 sodium, serum 138 mmol/L 389-974 5280/12/15 potassium, serum 4.0 mmol/L 3.5-5.2 chloride, serum [...] - Chem istry sodium, serum 142 mmol/L 288-391 9828/04/19 carbon dioxide, venous blood 30.2 mmol/L 21.0-32 [...] mg/dL Encounters Code Encounter Date Provider Facility CPT-17284 [id number] Vst-Est Level III 14:29:19 CDT Fiorella weston Polapari [facility] [place] CPT-37011 Level 2 Est. Patient 14:58:26 CDT Kylie boyd [facility] [place] CPT-21083 Level 3 Est. Patient 08:15:24 [employer] Kylie Yogabbi [facility] [place] CPT-59622 Level 2 Est. Patient 14:27:16 [employer]CH[employer]IC Kylie Kevon [facility] [place] CPT-65089 Level 3 Est. Patient 17:54:48 CDT Kylie Yogabbi [facility] [place] CPT-84026 Level 3 Est. Patient 16:26:30 CDT Kina blackmon [facility] CPT-25759 Level 3 New Patient 16:22:01 [employer] SERV[employer] MECHANIC Adam Yates MD [facility] CPT-95773 Level 4 Est. Patient 17:00:48 CDT Kylie Lund [facility] [place] CPT-41979 Level 3 Est. Patient 13:15:54 CDT Kylie Lund [facility] CPT-33347 Level 3 Est. Patient 09:10:11 CDT Kylie Lund [facility] CPT-98471 Level 4 Est. Patient 12:08:30 [employer] SERV[employer] MECHANIC Hope cohn MD PhD [facility] CPT-83116 Level 4 Est. Patient 19:08:42 [employer] SERVICE MECHANIC Hope cohn MD PhD [facility] CPT-04270 Level 4 Est. Patient 20:04:51 CDT Hope cohn MD PhD [facility] CPT-74367 Level 3 New Patient 01:46:11 [employer]CH[employer]IC Hope landers MD PhD [facility] Procedures Code Procedure Name Date Entry Date Standard Desc ription CPT-G0439 [facility] Annual Wellness Exam 14:29:19 CDT CPT-70857 Venipuncture Draw Fee 10:59:04 CDT CPT-67772 CMP - LAB USE ONLY 10:59:04 CDT CPT-73491 CBC with Diff - LAB USE ONLY 10:59:03 CDT 2 CPT-J0897 Prolia 60 mg 15:46:54 [employer] CPT-80259 Abx/Therapy Injection 15:46:54 [employer]CH[employer]IC CPT-72216 Microalbumin - LAB USE ONLY 09:41:32 [employer] SERV[employer] MECHANIC 20 23/01/15 CPT-18741 Free T4 - LAB USE ONLY 09:41:32 [employer]CH[employer]IC CPT-54954 TSH - LAB USE ONLY 09:41:32 [employer] SERV[employer]CHANIC CPT-57253 BMP - LAB USE ONLY 09:41:32 [employer]CH[employer]IC CPT-75776 Venipuncture Draw Fee 09:41:32 [employer] MECH[employer]IC CPT-89210 First Vx - Ix admin for Medicare patients 11:19:30 CDT CPT-66850 Fluzone High-Dose Intramuscular Suspension 12/07 11:19:30 CDT CPT-J0897 Prolia 60 mg 14:55:42 CDT CPT-77240 Abx/Therapy Injection 14:55:42 CDT CPT-85393 Bone Density - XRAY USE ONLY 10:27:12 CDT 2 CPT-G0439 [facility] Subsequent Annual Wellness Exam 17:54:53 CDT CPT-09970 Foot, left, comp min 3V - XRAY USE ONLY 12:22:49 CDT CPT-G0009 Administration of Pneumococcal Vaccine 3 12:18:00 CDT CPT-26049 Pneumovax 23 Injection Injectable 25 MCG /0.5ML 12:18:00 CDT CPT-J0897 Prolia 60 mg 14:14:16 [employer] CPT-25286 Abx/Therapy Injection 14:14:15 [employer] SERV[employer]CH[employer]IC CPT-64591 Lipid - LAB USE ONLY 10:01:52 [employer] SERVICE MECHANIC 2 CPT-56199 Calcium - LAB USE ONLY 10:01:51 [employer] SERVICE MECH[employer]IC CPT-69646 Venipuncture Draw Fee 10:01:51 [employer] SERVICE MECHANIC CPT-LR Lesion Removal 16:22:01 [employer] SERVICE MECHANIC CPT-31226 TSH - LAB USE ONLY 14:26:02 CDT CPT-56339 CMP - LAB USE ONLY 14:26:01 CDT CPT-26924 CBC with Diff - LAB USE ONLY 14:26:01 CDT 2 CPT-52866 Venipuncture Draw Fee 14:26:01 CDT CPT-18595 First Vx - Ix admin for Medicare patients 13:27:08 CDT CPT-41176 Fluzone High-Dose Intramuscular Suspension 11/26 13:27:08 CDT CPT-G0438 Initial Annual Wellness Exam 14:19:57 CD T CPT-G0009 Administration of Pneumococcal Vaccine 9 11:36:25 CDT CPT-59660 Prevnar 13 Intramuscular Suspension 1 1:36:25 CDT CPT-46051 Prevnar 13 Intramuscular Suspension 1 0:40:58 CDT CPT-J0897 Prolia 60 mg 10:37:16 CDT CPT-28935 Abx/Therapy Injection 10:37:16 CDT CPT-J0897 Prolia 60 mg 16:09:34 [employer]CH[employer]IC CPT-J0897 Prolia 60 mg 11:10:35 [employer] SERVICE MECHANIC CPT-72804 Abx/Therapy Injection 11:10:35 [employer] SERV[employer]CHANIC CPT-000 Give Appropriate Flu Vaccine 17:01:15 [employer] SERVICE MECHANIC 2 CPT-32208 Fluzone High Dose (65+) 15:03:08 [employer] SERVICE MECHANIC 02/15 CPT-80390 Immunization Single Admin 15:03:08 [employer] SERVICE MECHANIC 2014 CPT-OV Office Visit 15:58:06 CDT CPT-J0897 Prolia 60 mg 08:45:38 CDT CPT-07081 Abx/Therapy Injection 08:45:38 CDT CPT-J3420 Vitamin B12 1000mcg (Cyanocobalamin) 09:26:20 [employer] SERV[employer]CH[employer]IC CPT-01547 Abx/Therapy Injection 09:26:20 AUT[employer] SERVICE MECHANIC CPT-J3420 Vitamin B12 1000mcg (Cyanocobalamin) 09:44:40 AUT[employer] SERVICE MECHANIC CPT-10370 Abx/Therapy Injection 09:44:40 AUT[employer] SERVICE MECHANIC CPT-J3420 Vitamin B12 1000mcg (Cyanocobalamin) 09:15:54 AUT[employer] SERVICE MECHANIC CPT-97134 Abx/Therapy Injection 09:15:54 AUT[employer] SERVICE MECHANIC CPT-J3420 Vitamin B12 1000mcg (Cyanocobalamin) 09:46:44 [employer] SERVICE MECHANIC CPT-74133 Abx/Therapy Injection 09:46:44 AUT[employer] SERVICE MECHANIC CPT-J3420 Vitamin B12 1000mcg (Cyanocobalamin) 09:47:34 AUT[employer] SERVICE MECHANIC CPT-06938 Abx/Therapy Injection 09:47:34 AUT[employer] SERVICE MECHANIC CPT-J3420 Vitamin B12 1000mcg (Cyanocobalamin) 14:35:50 AUT[employer] SERVICE MECHANIC CPT-J3420 Vitamin B12 1000mcg (Cyanocobalamin) 09:25:05 AUT[employer] SERVICE MECHANIC CPT-84532 Abx/Therapy Injection 09:25:05 [employer] SERVICE MECHANIC CPT-G0008 Administration of Influenza Virus Vaccine 13:36:47 CDT CPT-36988 Fluzone High-Dose Intramuscular Suspension 11/15 13:36:47 CDT CPT-J0897 Prolia 60 mg 08:50:41 CDT CPT-01549 Abx/Therapy Injection 08:50:41 CDT CPT-96980 Bone Density 12:06:12 CDT CPT-71576 Bone Density 08:54:40 CDT CPT-OV Office Visit 15:37:02 CDT CPT-29521 Postop F/U Visit 15:47:49 CDT CPT-53429 Postop F/U Visit 15:21:02 CDT CPT-TCM Transitional Care Mgmt-High 07:52:27 CDT 20 20/06/01 CPT-07824 Venipuncture Draw Fee 13:51:18 CDT CPT-07378 Venipuncture Draw Fee 10:14:55 [employer] CPT-99759 Venipuncture Draw Fee 13:39:45 [employer] SERVICE MECHANIC CPT-OV Office Visit 15:11:22 [employer] SERVICE MECHANIC CPT-41972 Venipuncture Draw Fee 09:20:49 [employer] SERVICE MECHANIC CPT-11476 Venipuncture Draw Fee 16:52:15 AUT[employer] SERVICE MECHANIC CPT-04896 Venipuncture Draw Fee 10:37:24 AUT[employer] SERVICE MECHANIC CPT-76794 Venipuncture Draw Fee 08:21:21 AUT[employer] SERVICE MECHANIC CPT-58296 Venipuncture Draw Fee 08:30:20 AUTO SERVICE MECHANIC CPT-02846 Venipuncture Draw Fee 14:53:21 AUTO SERVICE MECHANIC CPT-79200 Venipuncture Draw Fee 09:40:56 [employer] SERVICE MECHANIC CPT-44993 Venipuncture Draw Fee 10:30:47 AUT[employer] SERVICE MECHANIC CPT-89865 Venipuncture Draw Fee 10:46:17 AUT[employer] SERVICE MECHANIC CPT-65802 Venipuncture Draw Fee 11:12:45 AUT[employer] SERVICE MECHANIC CPT-05218 Venipuncture Draw Fee 09:53:33 AUT[employer] SERVICE MECHANIC CPT-48805 Venipuncture Draw Fee 11:53:51 [employer] SERVICE MECHANIC CPT-15016 Venipuncture Draw Fee 10:33:50 [employer] SERVICE MECHANIC CPT-27883 Venipuncture Draw Fee 10:05:01 AUT[employer] SERVICE MECHANIC 2013/12/ 03 CPT-54378 Venipuncture Draw Fee 14:32:52 [employer] SERVICE MECHANIC CPT-55627 Venipuncture Draw Fee 09:46:13 [employer] SERVICE MECHANIC CPT-94316 Venipuncture Draw Fee 11:34:27 [employer] SERVICE MECHANIC CPT-67654 Venipuncture Draw Fee 13:17:16 [employer] SERVICE MECHANIC CPT-05158 Venipuncture Draw Fee 12:05:39 CDT CPT-20122 Venipuncture Draw Fee 12:49:12 CDT CPT-43588 Venipuncture Draw Fee 12:37:18 CDT CPT-31948 Venipuncture Draw Fee 10:57:11 CDT CPT-48095 Venipuncture Draw Fee 13:47:40 CDT CPT-19334 Venipuncture Draw Fee 10:02:17 CDT CPT-35211 TB Tubersol 17:32:32 CDT CPT-OV Office Visit 16:21:53 CDT CPT-OV Office Visit 15:49:22 CDT CPT-OV Office Visit 17:16:31 CDT CPT-OV Office Visit 10:43:31 CDT
--- OUTSIDE RECORDS SUMMARY | 2019-02-09 12:12 | XMS REPORT | Clinical Summary ---
Author Author Admin, Florecita Munoz Organization [facility] Address Unknown Phone Unavailable Allergies, Adverse Reactions, [...] vitamin D deficiency Peripheral neuropathy 356.9 Active Hoep Benavidez MD PhD Unspecified hereditary and idiopathic peripheral neuropathy Vitamin B12 deficiency 266.2 Active Citlaly Meff ord RMA Other B-complex deficiencies Adenocarcinoma, ascending colon 153.6 Resolved 2015 Adam Yates MD Malignant neoplasm of ascending colon Sebaceous cyst, scalp 706.2 Resolved Kylie Yokum [employer] Sebaceous cyst Cervical lymphadenopathy, anterior, left 785.6 Resolv ed Kylie Yokum [employer] Enlargement of lymph nodes Need for prophylactic vaccination and inoculation against in fluenza V04.81 Resolved Adam Yates MD Need for prophylactic vaccination and inoculation against influenza Preventive health care V70.0 Resolved Kylie Yoku m [employer] Routine general medical examination at a health care facility Thyroid nodule, left 241.0 Active Kylie Yokum A PRN Nontoxic uninodular goiter Screening mammogram V76.12 Resolved Kylie Yokum A PRN Other screening mammogram Mandy 706.2 Resolved Kylie Yokum [employer] Sebaceous cyst Colon cancer, ascending 153.6 Resolved Kylie Yok um [employer] Malignant neoplasm of ascending colon Foot pain, left 729.5 Resolved Kylie Yokum [employer] Pain in limb Splinter 919.6 Resolved Kylie Yokum [employer] Superficial foreign body (splinter) of other, multiple, and unspecified sites, without major open wound and without mention of infection Rash 782.1 Resolved Kylie Yokum [employer] Rash and other nonspecific skin eruption Cyst 706.2 Resolved Kylie Yokum [employer] Sebaceous cyst Body Mass Index 23.0-23.9 Adult Active Kylie Yokum [employer] Body Mass Index between 19-24, adult Unspecified fall, initial encounter E888.9 Inactive Kylie Holt [employer] Unspecified fall Eye pain, left 379.91 Inactive Kylie Holt [employer] Pain in or around eye Pharyngitis, acute 074.0 Active Kylie Holt APR N Herpangina ABDOMINAL PAIN, RIGHT LOWER QUADRANT ICD-789.03 Inactive Kina Joshua [employer] ABDOMINAL PAIN, GENERALIZED ICD-789.07 Inactive Hope Benavidez MD PhD FEVER UNSPECIFIED ICD-780.60 Inactive Hope cohn MD PhD ADENOCARCINOMA, 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 Inac tive Hope Benavidez MD PhD Hyperkalemia ICD-276.7 Inactive Hope Benavidez MD PhD GERD ICD-530.81 Inactive Kylie Holt [employer] 2015 Health maintenance exam ICD-V70.0 Inactive Adolfo Yates MD Anemia ICD-285.9 Inactive Kylie Holt [employer] 07/24 UNSPECIFIED VENOUS INSUFFICIENCY ICD-459.81 Norco ctive Adam Yates MD ADENOCARCINOMA, COLON, 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 Inactiv aarti Yates MD Weakness ICD-780.79 Inactive Hope Benavidez MD P Hypomagnesemia ICD-275.2 Inactive Kylie Holt [employer] Asymptomatic postmenopausal status (age-related) (natural) I CD-V49.81 Inactive Hope Benavidez MD PhD Aftercare following surgery of the teeth,oral cavity a nd digestive system, NEC ICD-V58.75 Inactive Adam Yates MD Colon cancer ICD-153.9 Inactive Adam luna MD Dysuria ICD-788.1 Inactive Hope Benavidez MD PhD 201 05/19/01 Adenocarcinoma, ascending colon ICD-153.6 Inac tive Adam Yates MD Sebaceous cyst, scalp ICD-706.2 Inactive Tracy hi Yokum [employer] Cervical lymphadenopathy, anterior, left ICD-785.6 Inactive Kylie Yokum [employer] Need for prophylactic vaccination and inoculation against in fluenza ICD-V04.81 Inactive Adam Yates MD Diarrhea, functional ICD-564.5 Inactive Selena Yates MD Screening mammogram ICD-V76.12 Inactive Kylie Yokum [employer] Mandy ICD-706.2 Inactive Kylie Yokum [employer] 07/20 Colon cancer, ascending ICD-153.6 Inactive K athi Yokum [employer] Foot pain, left ICD-729.5 Inactive Kylie Yokum [employer] Preventive health care ICD-V70.0 Inactive Ka thi Yokum [employer] Rash ICD-782.1 Inactive Kylie Yokum [employer] 07/25 Cyst ICD-706.2 Inactive Kylie Yokum [employer] 08/11 Unspecified fall, initial encounter ICD-E888.9 Inactive Kylie Holt [employer] Eye pain, left ICD-379.91 Inactive Kylie Holt [employer] Splinter ICD-919.6 Inactive Kylie Holt [employer] 2017 Medication List Medication Instructions Start Date Stop Date Generic Name ND Status Provider Patient Instruction IMODIUM A-D 2 MG ORAL TABLET 1 tablet twice a day LOPERAMIDE HCL 90118827085 Active Kylie Holt AMY Active VOLTAREN 1 % TRANSDERMAL GEL apply q 6-8 hour to left arm as needed for pain DICLOFENAC SODIUM 50705936255 Active Kylie Holt APRN Active COQ10 100 MG ORAL CAPSULE 1 daily COENZYME Q10 653341 65881 Active LETY Nation Active VITAMIN D3 2000 UNIT ORAL CAPSULE Melaleuca-One daily CHOLECALCIFEROL 40047372929 Active Kylie Holt AMY Active PROBIOTIC DAILY ORAL CAPSULE Take one daily PROBIO TIC PRODUCT 50490385487 Active Kylie Holt AMY Active IRON 325 (65 Fe) MG ORAL TABLET 1 every other day FERROUS SULFATE 84816886260 No Longer Active Kylie Holt APRN Active FLORANEX ORAL PACKET 1 pack three times daily, for bowel health LACTOBACILLUS 47147217091 No Longer Active Kylie Holt APRN Active LOMOTIL 2.5-0.025 MG ORAL TABLET 1 tab by mouth prn 23/10/23 DIPHENOXYLATE-ATROPINE 65764716771 No Longer Active Kylie Holt APRN Active MAGNESIUM GLUCONATE 250 MG ORAL TABLET 1 tab tid 23/10/23 MAGNESIUM GLUCONATE 71098296752 No Longer Active Kylie Lundum [employer] Active CYANOCOBALAMIN 1000 MCG/ML INJECTION SOLUTION 1 injection ev ruben 2 weeks CYANOCOBALAMIN 73812724901 No Longer Active Kylie Yok um [employer] Active ATENOLOL 25 MG ORAL TABLET 1/2 pill by mouth daily, fo r headaches, blood pressure ATENOLOL 74751074699 Active Kylie Holt [employer] Active PROPRANOLOL HCL 80 MG ORAL TABLET 1 tab tue. and thur. PROPRANOLOL HCL 71509815416 No Longer Active Hope Benavidez MD PhD A ctive VITAMIN D3 4000 IU 1 tab 3 times daily VITAMIN D3 4000 IU No Longer Active Hope Benavidez MD PhD Active BACTRIM DS 800-160 MG ORAL TABLET 1 pill by mouth twice claudio y, for UTI SULFAMETHOXAZOLE-TRIMETHOPRIM 97797192024 No Longer Active Hope Benavidez MD PhD Active PROLIA 60 MG/ML SUBCUTANEOUS SOLUTION 1 shot every 6 months for osteoprosis DENOSUMAB 74218908248 Active Hope Benavidez MD PhD Active CALCIUM + D + K 750-500-40 MG-UNT-MCG ORAL TABLET 1 tab by m out twice daily CALCIUM-VITAMIN D-VITAMIN K 07131641460 Active Hope valdez MD PhD Active DAILY VALUE MULTIVITAMIN ORAL TABLET 1 tab by mouth twice daily 201 05/16/14 MULTIPLE VITAMIN 06877104725 Active Hope Benavidez MD PhD Acti ve FISH OIL 306 MG CAPS 1 tab by mouth three times daily OMEGA-3 FATTY ACIDS 56293097651 Active Hope Benavidez MD PhD Active LUTEIN 10 MG ORAL TABLET 1 tab daily LUTEIN 98043314 408 Active Hope Benavidez MD PhD Active TRIAMTERENE-HCTZ 37.5-25 MG ORAL TABLET 1 tab by mouth daily 10/22 TRIAMTERENE-HCTZ 17285988507 Active Kylie Escalonagabbioliver [employer] Active CYCLOBENZAPRINE HCL 10 MG ORAL TABLET 1 tablet by mout h three times daily as needed for headaches CYCLOBENZAPRINE HCL 96284057587 No Longer Active Adam Yates MD Active OMEPRAZOLE 20 MG ORAL CAPSULE DELAYED RELEASE 1 tablet by mo uth daily for GERD OMEPRAZOLE 36725228707 No Longer Active Adam Yates MD Active ZOFRAN 8 MG ORAL TABLET 1 tab by mouth every 12 hours prn 4 ONDANSETRON HCL 18488733880 No Longer Active Adam Yates MD Active PHENADOZ 25 MG RECTAL SUPPOSITORY 1 every 4 hrs. PRN 2 PROMETHAZINE HCL 80142428631 No Longer Active Adam Yates MD A ctive POTASSIUM CHLORIDE 20 MEQ ORAL PACKET by mouth twice a day prn 2 POTASSIUM CHLORIDE 71624841663 No Longer Active Adam Carpenter MD Active PROMETHAZINE HCL 25 MG ORAL TABLET 1 Q. 4 hr. PRN PROMETHAZINE HCL 18743543938 No Longer Active Adam Yates MD Active INNOPRAN XL 120 MG ORAL CAPSULE EXTENDED RELEASE 24 HO UR Take one by mouth daily PROPRANOLOL HCL SR BEADS 98585093839 No Longer Active Adam Yates MD Active FLAGYL 500 MG ORAL TABLET 1 pill by mouth three times daily, for diarrhea METRONIDAZOLE 26356192760 No Longer Active Hope landers MD PhD Active DYAZIDE 37.5-25 MG ORAL CAPSULE 1 qd TRIA MTERENE-HCTZ 43804009892 No Longer Active Hope Benavidez MD PhD Active PROZAC 20 MG ORAL CAPSULE 1 q d FLUOXETINE HCL 78914215599 No Longer Active Hope Benavidez MD PhD Active SIMVASTATIN 40 MG ORAL TABLET 1 qd SIMVAS TATIN 80314932249 No Longer Active Adam Yates MD Active MELOXICAM 15 MG ORAL TABLET 1 qd MELOXICAM 28532834746 No Longer Active Adam Yates MD Active EXCEDRIN EXTRA STRENGTH 250-250-65 MG ORAL TABLET 1-2 q6h GA N headache [id number] 62186608825 Active Hope Benavidez MD PhD Active FLAGYL 500 MG ORAL TABLET 1 qid METRONIDAZOL E 30013441259 No Longer Active Adam Yates MD Active LEVAQUIN 750 MG ORAL TABLET 1 qd LEVOFLOXAC IN 10436166687 No Longer Active Adam aYtes MD Active ADULT ASPIRIN LOW STRENGTH 81 MG ORAL TABLET DISINTEGRATING 1 qd ASPIRIN 11569100401 Active Hope Benavidez MD PhD Active LEVAQUIN 750 MG ORAL TABLET 1 qd LEVAQUIN 750 MG ORAL TABLET 139517 LEVOFLOXACIN Inactive FLAGYL 500 MG ORAL TABLET 1 qid FLAGYL 500 MG ORAL TABLET 801998 METRONIDAZOLE Inactive MELOXICAM 15 MG ORAL TABLET 1 qd MELOXICAM 15 MG ORAL TABLET 849674 MELOXICAM Inactive SIMVASTATIN 40 MG ORAL TABLET 1 qd SIMVASTATIN 40 MG ORAL TABLET 969204 SIMVASTATIN Inactive PROZAC 20 MG ORAL CAPSULE 1 q d PROZAC 20 MG ORAL CAPSULE 472846 FLUOXETINE HCL Inactive DYAZIDE 37.5-25 MG ORAL CAPSULE 1 qd 5 DYAZIDE 37.5-25 MG ORAL CAPSULE 503102 TRIAMTERENE-HCTZ Inactive INNOPRAN XL 120 MG ORAL CAPSULE EXTENDED RELEASE 24 HO UR Take one by mouth daily INNOPRAN XL 120 MG ORAL CAPSULE EXTENDED RELEASE 24 HOUR PROPRANOLOL HCL SR BEADS Inactive PROMETHAZINE HCL 25 MG ORAL TABLET 1 Q. 4 hr. PRN 2013 PROMETHAZINE HCL 25 MG ORAL TABLET 564301 PROMETHAZINE HCL Inactive POTASSIUM CHLORIDE 20 MEQ ORAL PACKET by mouth twice a day prn 2 POTASSIUM CHLORIDE 20 MEQ ORAL PACKET 4732978 POTASSIUM CHLORIDE Inactive PHENADOZ 25 MG RECTAL SUPPOSITORY 1 every 4 hrs. PRN 2 PHENADOZ 25 MG RECTAL SUPPOSITORY 635112 PROMETHAZINE HCL Inactive ZOFRAN 8 MG ORAL TABLET 1 tab by mouth every 12 hours prn 4 ZOFRAN 8 MG ORAL TABLET 938943 ONDANSETRON HCL Inactive OMEPRAZOLE 20 MG ORAL CAPSULE DELAYED RELEASE 1 tablet by [facility] daily for GERD OMEPRAZOLE 20 MG ORAL CAPSULE DELAYED RELEASE 19 8051 OMEPRAZOLE Inactive CYCLOBENZAPRINE HCL 10 MG ORAL TABLET 1 tablet by mout h three times daily as needed for headaches CYCLOBENZAPRINE HCL 10 MG ORAL TABLET 640286 CYCLOBENZAPRINE HCL Inactive VITAMIN D3 4000 IU 1 tab 3 times daily VITAMIN D3 4000 IU Inactive PROPRANOLOL HCL 80 MG ORAL TABLET 1 tab tue. and thur. PROPRANOLOL HCL 80 MG ORAL TABLET 501647 PROPRANOLOL HCL Inacti ve CYANOCOBALAMIN 1000 MCG/ML INJECTION SOLUTION 1 injection ev ruben 2 weeks CYANOCOBALAMIN 1000 MCG/ML INJECTION SOLUTION 30 9594 CYANOCOBALAMIN Inactive MAGNESIUM GLUCONATE 250 MG ORAL TABLET 1 tab tid 23/10/23 MAGNESIUM GLUCONATE 250 MG ORAL TABLET 797138 MAGNESIUM GLUCONATE Inactive LOMOTIL 2.5-0.025 MG ORAL TABLET 1 tab by mouth prn 23/10/23 LOMOTIL 2.5-0.025 MG ORAL TABLET 3273840 DIPHENOXYLATE-ATROPINE Inac tive FLORANEX ORAL PACKET 1 pack three times daily, for bowel health FLORANEX ORAL PACKET 68439358555 LACTOBACILLUS Inactive IRON 325 (65 Fe) MG ORAL TABLET 1 every other day 2015 IRON 325 (65 Fe) MG ORAL TABLET 358385 FERROUS SULFATE Inactive FLAGYL 500 MG ORAL TABLET 1 pill by mouth three times daily, for diarrhea FLAGYL 500 MG ORAL TABLET 263434 METRONIDAZOLE I nactive BACTRIM DS 800-160 MG ORAL TABLET 1 pill by mouth twice claudio y, for UTI BACTRIM DS 800-160 MG ORAL TABLET 035973 SULFAMETHOXAZOLE-TRIMETHOPRIM Inactive Advance Directives Directive Description Start [...] ... - Chemistry sodium, serum 138 mmol/L 817-663 4227/12/15 potassium, serum 4.0 mmol/L 3.5-5.2 chloride, serum [...] - Chem istry sodium, serum 142 mmol/L 890-067 2387/04/19 carbon dioxide, venous blood 30.2 mmol/L 21.0-32 [...] mg/dL Encounters Code Encounter Date Provider Facility CPT-30905 [id number] Vst-Est Level III 14:29:19 CDT Fiorella Lundoliver [facility] [place] CPT-56741 Level 2 Est. Patient 14:58:26 CDT Kylie Lund [facility] [place] CPT-61888 Level 3 Est. Patient 08:15:24 DEVICE TEST ENGINEER Kylie Kevon [facility] [place] CPT-05339 Level 2 Est. Patient 14:27:16 DEVICE TEST ENGINEER Yklie Kevon [facility] [place] CPT-80246 Level 3 Est. Patient 17:54:48 CDT Kylie Kevon [facility] [place] CPT-10568 Level 3 Est. Patient 16:26:30 CDT Kina blackmon [facility] [place] CPT-50090 Level 3 New Patient 16:22:01 DEVICE TEST ENGINEER Adam Yates MD [facility] CPT-90172 Level 4 Est. Patient 17:00:48 CDT Kylie Lund [facility] [place] CPT-63529 Level 3 Est. Patient 13:15:54 CDT Kylie Lund [facility] CPT-00163 Level 3 Est. Patient 09:10:11 CDT Kylie Lund [facility] CPT-58391 Level 4 Est. Patient 12:08:30 DEVICE TEST ENGINEER Hope cohn MD PhD [facility] CPT-54994 Level 4 Est. Patient 19:08:42 DEVICE TEST ENGINEER Hope cohn MD PhD [facility] CPT-79009 Level 4 Est. Patient 20:04:51 CDT Hope cohn MD PhD [facility] CPT-90908 Level 3 New Patient 01:46:11 DEVICE TEST ENGINEER Hope landers MD PhD [facility] Procedures Code Procedure Name Date Entry Date Standard Desc ription CPT-G0439 [facility] Annual Wellness Exam 14:29:19 CDT CPT-40505 Venipuncture Draw Fee 10:59:04 CDT CPT-29946 CMP - LAB USE ONLY 10:59:04 CDT CPT-10106 CBC with Diff - LAB USE ONLY 10:59:03 CDT 2 CPT-J0897 Prolia 60 mg 15:46:54 DEVICE TEST ENGINEER CPT-12648 Abx/Therapy Injection 15:46:54 DEVICE TEST ENGINEER CPT-21542 Microalbumin - LAB USE ONLY 09:41:32 DEVICE TEST ENGINEER 20 23/01/15 CPT-18666 Free T4 - LAB USE ONLY 09:41:32 DEVICE TEST ENGINEER CPT-85771 TSH - LAB USE ONLY 09:41:32 DEVICE TEST ENGINEER CPT-39159 BMP - LAB USE ONLY 09:41:32 DEVICE TEST ENGINEER CPT-10576 Venipuncture Draw Fee 09:41:32 DEVICE TEST ENGINEER CPT-21465 First Vx - Ix admin for Medicare patients 11:19:30 CDT CPT-64743 Fluzone High-Dose Intramuscular Suspension 12/07 11:19:30 CDT CPT-J0897 Prolia 60 mg 14:55:42 CDT CPT-28346 Abx/Therapy Injection 14:55:42 CDT CPT-28082 Bone Density - XRAY USE ONLY 10:27:12 CDT 2 CPT-G0439 [facility] Subsequent Annual Wellness Exam 17:54:53 CDT CPT-33402 Foot, left, comp min 3V - XRAY USE ONLY 12:22:49 CDT CPT-G0009 Administration of Pneumococcal Vaccine 3 12:18:00 CDT CPT-17516 Pneumovax 23 Injection Injectable 25 MCG /0.5ML 12:18:00 CDT CPT-J0897 Prolia 60 mg 14:14:16 DEVICE TEST ENGINEER CPT-30737 Abx/Therapy Injection 14:14:15 DEVICE TEST ENGINEER CPT-30184 Lipid - LAB USE ONLY 10:01:52 DEVICE TEST ENGINEER 2 CPT-38834 Calcium - LAB USE ONLY 10:01:51 DEVICE TEST ENGINEER CPT-32495 Venipuncture Draw Fee 10:01:51 DEVICE TEST ENGINEER CPT-LR Lesion Removal 16:22:01 DEVICE TEST ENGINEER CPT-61464 TSH - LAB USE ONLY 14:26:02 CDT CPT-92315 CMP - LAB USE ONLY 14:26:01 CDT CPT-22587 CBC with Diff - LAB USE ONLY 14:26:01 CDT 2 CPT-91597 Venipuncture Draw Fee 14:26:01 CDT CPT-20445 First Vx - Ix admin for Medicare patients 13:27:08 CDT CPT-27082 Fluzone High-Dose Intramuscular Suspension 11/26 13:27:08 CDT CPT-G0438 Initial Annual Wellness Exam 14:19:57 CD T CPT-G0009 Administration of Pneumococcal Vaccine 9 11:36:25 CDT CPT-94405 Prevnar 13 Intramuscular Suspension 1 1:36:25 CDT CPT-90876 Prevnar 13 Intramuscular Suspension 1 0:40:58 CDT CPT-J0897 Prolia 60 mg 10:37:16 CDT CPT-82715 Abx/Therapy Injection 10:37:16 CDT CPT-J0897 Prolia 60 mg 16:09:34 DEVICE TEST ENGINEER CPT-J0897 Prolia 60 mg 11:10:35 DEVICE TEST ENGINEER CPT-18923 Abx/Therapy Injection 11:10:35 DEVICE TEST ENGINEER CPT-000 Give Appropriate Flu Vaccine 17:01:15 DEVICE TEST ENGINEER 2 CPT-09239 Fluzone High Dose (65+) 15:03:08 DEVICE TEST ENGINEER 02/15 CPT-12504 Immunization Single Admin 15:03:08 DEVICE TEST ENGINEER 2014 CPT-OV Office Visit 15:58:06 CDT CPT-J0897 Prolia 60 mg 08:45:38 CDT CPT-12763 Abx/Therapy Injection 08:45:38 CDT CPT-J3420 Vitamin B12 1000mcg (Cyanocobalamin) 09:26:20 DEVICE TEST ENGINEER CPT-32208 Abx/Therapy Injection 09:26:20 DEVICE TEST ENGINEER CPT-J3420 Vitamin B12 1000mcg (Cyanocobalamin) 09:44:40 DEVICE TEST ENGINEER CPT-99707 Abx/Therapy Injection 09:44:40 DEVICE TEST ENGINEER CPT-J3420 Vitamin B12 1000mcg (Cyanocobalamin) 09:15:54 DEVICE TEST ENGINEER CPT-54258 Abx/Therapy Injection 09:15:54 DEVICE TEST ENGINEER CPT-J3420 Vitamin B12 1000mcg (Cyanocobalamin) 09:46:44 DEVICE TEST ENGINEER CPT-22046 Abx/Therapy Injection 09:46:44 DEVICE TEST ENGINEER CPT-J3420 Vitamin B12 1000mcg (Cyanocobalamin) 09:47:34 DEVICE TEST ENGINEER CPT-33887 Abx/Therapy Injection 09:47:34 DEVICE TEST ENGINEER CPT-J3420 Vitamin B12 1000mcg (Cyanocobalamin) 14:35:50 DEVICE TEST ENGINEER CPT-J3420 Vitamin B12 1000mcg (Cyanocobalamin) 09:25:05 DEVICE TEST ENGINEER CPT-77847 Abx/Therapy Injection 09:25:05 DEVICE TEST ENGINEER CPT-G0008 Administration of Influenza Virus Vaccine 13:36:47 CDT CPT-39522 Fluzone High-Dose Intramuscular Suspension 11/15 13:36:47 CDT CPT-J0897 Prolia 60 mg 08:50:41 CDT CPT-46602 Abx/Therapy Injection 08:50:41 CDT CPT-30809 Bone Density 12:06:12 CDT CPT-85563 Bone Density 08:54:40 CDT CPT-OV Office Visit 15:37:02 CDT CPT-53815 Postop F/U Visit 15:47:49 CDT CPT-92549 Postop F/U Visit 15:21:02 CDT CPT-TCMH Transitional Care Mgmt-High 07:52:27 CDT 20 20/06/01 CPT-12313 Venipuncture Draw Fee 13:51:18 CDT CPT-06881 Venipuncture Draw Fee 10:14:55 DEVICE TEST ENGINEER CPT-78392 Venipuncture Draw Fee 13:39:45 DEVICE TEST ENGINEER CPT-OV Office Visit 15:11:22 DEVICE TEST ENGINEER CPT-58838 Venipuncture Draw Fee 09:20:49 DEVICE TEST ENGINEER CPT-73884 Venipuncture Draw Fee 16:52:15 DEVICE TEST ENGINEER CPT-08305 Venipuncture Draw Fee 10:37:24 DEVICE TEST ENGINEER CPT-64752 Venipuncture Draw Fee 08:21:21 DEVICE TEST ENGINEER CPT-43309 Venipuncture Draw Fee 08:30:20 DEVICE TEST ENGINEER CPT-62446 Venipuncture Draw Fee 14:53:21 DEVICE TEST ENGINEER CPT-61083 Venipuncture Draw Fee 09:40:56 DEVICE TEST ENGINEER CPT-88377 Venipuncture Draw Fee 10:30:47 DEVICE TEST ENGINEER CPT-76270 Venipuncture Draw Fee 10:46:17 DEVICE TEST ENGINEER CPT-48522 Venipuncture Draw Fee 11:12:45 DEVICE TEST ENGINEER CPT-79304 Venipuncture Draw Fee 09:53:33 DEVICE TEST ENGINEER CPT-34755 Venipuncture Draw Fee 11:53:51 DEVICE TEST ENGINEER CPT-91134 Venipuncture Draw Fee 10:33:50 DEVICE TEST ENGINEER CPT-53641 Venipuncture Draw Fee 10:05:01 DEVICE TEST ENGINEER CPT-74422 Venipuncture Draw Fee 14:32:52 DEVICE TEST ENGINEER CPT-75829 Venipuncture Draw Fee 09:46:13 DEVICE TEST ENGINEER CPT-62031 Venipuncture Draw Fee 11:34:27 DEVICE TEST ENGINEER CPT-16646 Venipuncture Draw Fee 13:17:16 DEVICE TEST ENGINEER CPT-25976 Venipuncture Draw Fee 12:05:39 CDT CPT-09909 Venipuncture Draw Fee 12:49:12 CDT CPT-52603 Venipuncture Draw Fee 12:37:18 CDT CPT-00616 Venipuncture Draw Fee 10:57:11 CDT CPT-23931 Venipuncture Draw Fee 13:47:40 CDT CPT-19732 Venipuncture Draw Fee 10:02:17 CDT CPT-19024 TB Tubersol 17:32:32 CDT CPT-OV Office Visit 16:21:53 CDT CPT-OV Office Visit 15:49:22 CDT CPT-OV Office Visit 17:16:31 CDT CPT-OV Office Visit 10:43:31 CDT
--- OUTSIDE RECORDS SUMMARY | 2019-02-09 12:12 | XMS REPORT | Clinical Summary ---
Author Author Admin, Florecita Munoz Organization [facility] [place] Address Unknown Phone Unavailable Allergies, Adverse Reactions, [...] colon Sebaceous cyst, scalp 706.2 Resolved Kylie Yogabbium [facility] Sebaceous cyst Cervical lymphadenopathy, anterior, left 785.6 Resolv ed Kylie Yokum [facility] Enlargement of lymph nodes Need for prophylactic vaccination and inoculation against in fluenza V04.81 Resolved Adam Yates MD Need for prophylactic vaccination and inoculation against influenza Preventive health care V70.0 Resolved Kylie deras [facility] Routine general medical examination at a health care facility Thyroid nodule, left 241.0 Active Kylie Gonzalez PRN Nontoxic uninodular goiter Screening mammogram V76.12 Active Kylie MEEK RN Other screening mammogram Mandy 706.2 Resolved Kylie Yokum [facility] Sebaceous cyst Colon cancer, ascending 153.6 Resolved Kylie Yok um [facility] Malignant neoplasm of ascending colon Foot pain, left 729.5 Active Sulema Schwarz INTEL RECRUITER Pain in limb Splinter 919.6 Resolved Kylie Yokum [facility] Superficial foreign body (splinter) of other, multiple, and unspecified sites, without major open wound and without mention of infection Rash 782.1 Resolved Kylie Yokum [facility] Rash and other nonspecific skin eruption Cyst 706.2 Active Kylie Yokum [facility] S ebaceous cyst Body Mass Index 23.0-23.9 Adult Active Kylie Yogabbium [facility] Body Mass Index between 19-24, adult Unspecified fall, initial encounter E888.9 Active Kylie Holt [facility] Unspecified fall Eye pain, left 379.91 Active Kylie Yanet [facility] Pain in or around eye ABDOMINAL PAIN, RIGHT LOWER QUADRANT ICD-789.03 Inactive Kina Joshua [facility] ADENOCARCINOMA, COLON, 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 Dick Yates MD ABDOMINAL PAIN, GENERALIZED ICD-789.07 Inactive Hope Benavidez MD PhD FEVER UNSPECIFIED ICD-780.60 Inactive Hope cohn MD PhD UNSPECIFIED VENOUS INSUFFICIENCY ICD-459.81 [place] ctive Adam Yates MD ADENOCARCINOMA, 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 Inac tive Hope Benavidez MD PhD Hyperkalemia ICD-276.7 Inactive Hope Benavidez MD PhD GERD ICD-530.81 Inactive Kylie Holt [facility] 2015 Health maintenance exam ICD-V70.0 Bam Yates MD Anemia ICD-285.9 Inactive Kylie Holt [facility] 07/24 Hypomagnesemia ICD-275.2 Inactive Kylie Yokum [facility] Weakness ICD-780.79 Inactive Hope Benavidez MD P [...] cyst, scalp ICD-706.2 Inactive Tracy hi Yokum [facility] Cervical lymphadenopathy, anterior, left ICD-785.6 Inactive Kylie Yokum [facility] Need for prophylactic vaccination and inoculation against in fluenza ICD-V04.81 Inactive Adam Yates MD Preventive health care ICD-V70.0 Inactive Ka thi Yokum [facility] Mandy ICD-706.2 Inactive Kylie Yokum [facility] 07/20 Colon cancer, ascending ICD-153.6 Inactive K athi Yokum [facility] Splinter ICD-919.6 Inactive Kylie Yokum [facility] 2017 Rash ICD-782.1 Inactive Kylie Yokum [facility] 07/25 Medication List Medication Instructions Start Date Stop Date Generic Name NDC Status Provider Patient Instruction IMODIUM A-D 2 MG ORAL TABLET 1 tablet twice a day LOPERAMIDE HCL 04959702176 Active Kylie Yokum [facility] Active VOLTAREN 1 % TRANSDERMAL GEL apply q 6-8 hour to left arm as needed for pain DICLOFENAC SODIUM 50748730022 Active Kylie Yokum [facility] Active COQ10 100 MG ORAL CAPSULE 1 daily COENZYME Q10 926386 24437 Active LETY Nation Active VITAMIN D3 2000 UNIT ORAL CAPSULE Melaleuca-One daily CHOLECALCIFEROL 37898145893 Active Kylie oHlt APRN Active PROBIOTIC DAILY ORAL CAPSULE Take one daily PROBIO TIC PRODUCT 97397783196 Active Kylie Lundum [facility] Active IRON 325 (65 Fe) MG ORAL TABLET 1 every other day FERROUS SULFATE 82079925942 No Longer Active Kylie Holt [facility] Active FLORANEX ORAL PACKET 1 pack three times daily, for bowel health LACTOBACILLUS 61146754196 No Longer Active Kylie Holt APRN Active LOMOTIL 2.5-0.025 MG ORAL TABLET 1 tab by mouth prn 23/10/23 DIPHENOXYLATE-ATROPINE 64487112074 No Longer Active Kylie Lundum [facility] Active MAGNESIUM GLUCONATE 250 MG ORAL TABLET 1 tab tid 23/10/23 MAGNESIUM GLUCONATE 96329642745 No Longer Active Kylie Holt APRN Active CYANOCOBALAMIN 1000 MCG/ML INJECTION SOLUTION 1 injection ev ruben 2 weeks CYANOCOBALAMIN 28950510305 No Longer Active Kylie Lund um [facility] Active ATENOLOL 25 MG ORAL TABLET 1/2 pill by mouth daily, fo r headaches, blood pressure ATENOLOL 57446536751 Active Kylie Lundum [facility] Active PROPRANOLOL HCL 80 MG ORAL TABLET 1 tab tue. and thur. PROPRANOLOL HCL 93196849957 No Longer Active Hope Benavidez MD PhD A ctive VITAMIN D3 4000 IU 1 tab 3 times daily VITAMIN D3 4000 IU No Longer Active Hope Benavidez MD PhD Active BACTRIM DS 800-160 MG ORAL TABLET 1 pill by mouth twice claudio y, for UTI SULFAMETHOXAZOLE-TRIMETHOPRIM 23095283804 No Longer Active Hope Benavidez MD PhD Active PROLIA 60 MG/ML SUBCUTANEOUS SOLUTION 1 shot every 6 months for osteoprosis DENOSUMAB 43516123987 Active Hope Benavidez MD PhD Active CALCIUM + D + K 750-500-40 MG-UNT-MCG ORAL TABLET 1 tab by m out twice daily CALCIUM-VITAMIN D-VITAMIN K 09443506564 Active Hope valdez MD PhD Active DAILY VALUE MULTIVITAMIN ORAL TABLET 1 tab by mouth twice daily 201 05/16/14 MULTIPLE VITAMIN 02110620464 Active Hope Benavidez MD PhD Acti ve FISH OIL 306 MG CAPS 1 tab by mouth three times daily OMEGA-3 FATTY ACIDS 78867330060 Active Hope Benavidez MD PhD Active LUTEIN 10 MG ORAL TABLET 1 tab daily LUTEIN 66283421 408 Active Hope Benavidez MD PhD Active TRIAMTERENE-HCTZ 37.5-25 MG ORAL TABLET 1 tab by mouth daily 10/22 TRIAMTERENE-HCTZ 29958986170 Active Kylie Yanet REYES Active CYCLOBENZAPRINE HCL 10 MG ORAL TABLET 1 tablet by mout h three times daily as needed for headaches CYCLOBENZAPRINE HCL 15959656754 No Longer Active Adam Yates MD Active OMEPRAZOLE 20 MG ORAL CAPSULE DELAYED RELEASE 1 tablet by [facility] daily for GERD OMEPRAZOLE 49832380992 No Longer Active Adam Yates MD Active ZOFRAN 8 MG ORAL TABLET 1 tab by mouth every 12 hours prn 4 ONDANSETRON HCL 68324466476 No Longer Active Adam Yates MD Active PHENADOZ 25 MG RECTAL SUPPOSITORY 1 every 4 hrs. PRN 2 PROMETHAZINE HCL 84347448954 No Longer Active Adam Yates MD A ctive POTASSIUM CHLORIDE 20 MEQ ORAL PACKET by mouth twice a day prn 2 POTASSIUM CHLORIDE 47533306274 No Longer Active Adam Carpenter MD Active PROMETHAZINE HCL 25 MG ORAL TABLET 1 Q. 4 hr. PRN PROMETHAZINE HCL 83802351897 No Longer Active Adam Yates MD Active INNOPRAN XL 120 MG ORAL CAPSULE EXTENDED RELEASE 24 HO UR Take one by mouth daily PROPRANOLOL HCL SR BEADS 51557023196 No Longer Active Adam Yates MD Active FLAGYL 500 MG ORAL TABLET 1 pill by mouth three times daily, for diarrhea METRONIDAZOLE 39991302263 No Longer Active Hope landers MD PhD Active DYAZIDE 37.5-25 MG ORAL CAPSULE 1 qd TRIA MTERENE-HCTZ 23278157892 No Longer Active Hope Benavidez MD PhD Active PROZAC 20 MG ORAL CAPSULE 1 q d FLUOXETINE HCL 17897319942 No Longer Active Hope Benavidez MD PhD Active SIMVASTATIN 40 MG ORAL TABLET 1 qd SIMVAS TATIN 74085733919 No Longer Active Adam Yates MD Active MELOXICAM 15 MG ORAL TABLET 1 qd MELOXICAM 70109505729 No Longer Active Adam Yates MD Active EXCEDRIN EXTRA STRENGTH 250-250-65 MG ORAL TABLET 1-2 q6h DC N headache [id number] 30169009014 Active Hope Benavidez MD PhD Active FLAGYL 500 MG ORAL TABLET 1 qid METRONIDAZOL E 74321590388 No Longer Active Adam Yates MD Active LEVAQUIN 750 MG ORAL TABLET 1 qd LEVOFLOXAC IN 06422713126 No Longer Active Adam Yates MD Active ADULT ASPIRIN LOW STRENGTH 81 MG ORAL TABLET DISINTEGRATING 1 qd ASPIRIN 86742744132 Active Hope Benavidez MD PhD Active LEVAQUIN 750 MG ORAL TABLET 1 qd LEVAQUIN 750 MG ORAL TABLET 099979 LEVOFLOXACIN Inactive FLAGYL 500 MG ORAL TABLET 1 qid FLAGYL 500 MG ORAL TABLET 689300 METRONIDAZOLE Inactive MELOXICAM 15 MG ORAL TABLET 1 qd MELOXICAM 15 MG ORAL TABLET 371520 MELOXICAM Inactive SIMVASTATIN 40 MG ORAL TABLET 1 qd SIMVASTATIN 40 MG ORAL TABLET 503268 SIMVASTATIN Inactive PROZAC 20 MG ORAL CAPSULE 1 q d PROZAC 20 MG ORAL CAPSULE 522759 FLUOXETINE HCL Inactive DYAZIDE 37.5-25 MG ORAL CAPSULE 1 qd 5 DYAZIDE 37.5-25 MG ORAL CAPSULE 870156 TRIAMTERENE-HCTZ Inactive INNOPRAN XL 120 MG ORAL CAPSULE EXTENDED RELEASE 24 HO UR Take one by mouth daily INNOPRAN XL 120 MG ORAL CAPSULE EXTENDED RELEASE 24 HOUR PROPRANOLOL HCL SR BEADS Inactive PROMETHAZINE HCL 25 MG ORAL TABLET 1 Q. 4 hr. PRN 2013 PROMETHAZINE HCL 25 MG ORAL TABLET 760266 PROMETHAZINE HCL Inactive POTASSIUM CHLORIDE 20 MEQ ORAL PACKET by mouth twice a day prn 2 POTASSIUM CHLORIDE 20 MEQ ORAL PACKET 7340228 POTASSIUM CHLORIDE Inactive PHENADOZ 25 MG RECTAL SUPPOSITORY 1 every 4 hrs. PRN 2 PHENADOZ 25 MG RECTAL SUPPOSITORY 087116 PROMETHAZINE HCL Inactive ZOFRAN 8 MG ORAL TABLET 1 tab by mouth every 12 hours prn 4 ZOFRAN 8 MG ORAL TABLET 767778 ONDANSETRON HCL Inactive OMEPRAZOLE 20 MG ORAL CAPSULE DELAYED RELEASE 1 tablet by mo uth daily for GERD OMEPRAZOLE 20 MG ORAL CAPSULE DELAYED RELEASE 19 8051 OMEPRAZOLE Inactive CYCLOBENZAPRINE HCL 10 MG ORAL TABLET 1 tablet by mout h three times daily as needed for headaches CYCLOBENZAPRINE HCL 10 MG ORAL TABLET 151443 CYCLOBENZAPRINE HCL Inactive VITAMIN D3 4000 IU 1 tab 3 times daily VITAMIN D3 4000 IU Inactive PROPRANOLOL HCL 80 MG ORAL TABLET 1 tab tue. and thur. PROPRANOLOL HCL 80 MG ORAL TABLET 189438 PROPRANOLOL HCL Inacti ve CYANOCOBALAMIN 1000 MCG/ML INJECTION SOLUTION 1 injection ev ruben 2 weeks CYANOCOBALAMIN 1000 MCG/ML INJECTION SOLUTION 30 2794 CYANOCOBALAMIN Inactive MAGNESIUM GLUCONATE 250 MG ORAL TABLET 1 tab tid 20 23/10/23 MAGNESIUM GLUCONATE 250 MG ORAL TABLET 805765 MAGNESIUM GLUCONATE Inactive LOMOTIL 2.5-0.025 MG ORAL TABLET 1 tab by mouth prn 20 23/10/23 LOMOTIL 2.5-0.025 MG ORAL TABLET 4508574 DIPHENOXYLATE-ATROPINE Inac tive FLORANEX ORAL PACKET 1 pack three times daily, for bowel health FLORANEX ORAL PACKET 95840157281 LACTOBACILLUS Inactive IRON 325 (65 Fe) MG ORAL TABLET 1 every other day 2015 IRON 325 (65 Fe) MG ORAL TABLET 949333 FERROUS SULFATE Inactive FLAGYL 500 MG ORAL TABLET 1 pill by mouth three times daily, for diarrhea FLAGYL 500 MG ORAL TABLET 881592 METRONIDAZOLE I nactive BACTRIM DS 800-160 MG ORAL TABLET 1 pill by mouth twice claudio y, for UTI BACTRIM DS 800-160 MG ORAL TABLET 232099 SULFAMETHOXAZOLE-TRIMETHOPRIM Inactive Advance Directives Directive Description Start [...] ... - Chemistry sodium, serum 138 mmol/L 355-806 5630/12/15 potassium, serum 4.0 mmol/L 3.5-5.2 chloride, serum [...] calcium, serum 9.9 mg/dL 8.5-10.1 Lab Report: CEA - Serology carcinoembryonic antigen 0.6 ng/mL Lab Report: Comp. Metabolic Panel - Chem istry sodium, serum 142 mmol/L 196-926 3241/04/19 carbon dioxide, venous blood 30.2 mmol/L 21.0-32 .0 potassium, serum 3.8 mmol/L 3.5-5.2 chloride, serum 101 mmol/L 98-107 blood glucose 97 mg/dL 65-110 urea nitrogen, blood 23 mg/dL 7-18 creatinine, serum 1.33 mg/dL 0.60-1.30 alanine aminotransferase (SGPT), serum 27 U/L 12-78 aspartate aminotransferase (SGOT), serum 24 U/L 15-37 calcium, serum 9.4 mg/dL 8.5-10.1 bilirubin, serum, total 0.80 mg/dL 0.00-1.00 Encounters Code Encounter Date Provider Facility CPT-33409 Level 2 Est. Patient 14:58:26 CDT Kylie boyd [facility] CPT-42163 Level 3 Est. Patient 08:15:24 GAS REGULATOR REPAIRER HELPER Kylie Lund [facility] CPT-30832 Level 2 Est. Patient 14:27:16 GAS REGULATOR REPAIRER HELPER Kylie boyd [facility] [place] CPT-80841 Level 3 Est. Patient 17:54:48 CDT Kylie boyd [facility] CPT-00507 Level 3 Est. Patient 16:26:30 CDT Kina blackmon [facility] CPT-20723 Level 3 New Patient 16:22:01 GAS REGULATOR REPAIRER HELPER [facility] CPT-79428 Level 4 Est. Patient 17:00:48 CDT Kylie boyd [facility] [place] CPT-34419 Level 3 Est. Patient 13:15:54 CDT Kylie boyd [facility] CPT-49478 Level 3 Est. Patient 09:10:11 CDT Kylie boyd [facility] CPT-18502 Level 4 Est. Patient 12:08:30 GAS REGULATOR REPAIRER HELPER Hope cohn MD PhD [facility] CPT-90336 Level 4 Est. Patient 19:08:42 GAS REGULATOR REPAIRER HELPER Hope cohn MD PhD [facility] CPT-68152 Level 4 Est. Patient 20:04:51 CDT Hope cohn MD [facility] CPT-47441 Level 3 New Patient 01:46:11 GAS REGULATOR REPAIRER HELPER Hope landers MD PhD [facility] Procedures Code Procedure Name Date Entry Date Standard Desc ription CPT-90215 Venipuncture Draw Fee 10:59:04 CDT CPT-66045 CMP - LAB USE ONLY 10:59:04 CDT CPT-80457 CBC with Diff - LAB USE ONLY 10:59:03 CDT 2 CPT-J0897 Prolia 60 mg 15:46:54 GAS REGULATOR REPAIRER HELPER CPT-34245 Abx/Therapy Injection 15:46:54 GAS REGULATOR REPAIRER HELPER CPT-46321 Microalbumin - LAB USE ONLY 09:41:32 GAS REGULATOR REPAIRER HELPER 20 23/01/15 CPT-98835 Free T4 - LAB USE ONLY 09:41:32 GAS REGULATOR REPAIRER HELPER CPT-71053 TSH - LAB USE ONLY 09:41:32 GAS REGULATOR REPAIRER HELPER CPT-40067 BMP - LAB USE ONLY 09:41:32 GAS REGULATOR REPAIRER HELPER CPT-08357 Venipuncture Draw Fee 09:41:32 GAS REGULATOR REPAIRER HELPER CPT-38559 First Vx - Ix admin for Medicare patients 11:19:30 CDT CPT-28115 Fluzone High-Dose Intramuscular Suspension 12/07 11:19:30 CDT CPT-J0897 Prolia 60 mg 14:55:42 CDT CPT-95071 Abx/Therapy Injection 14:55:42 CDT CPT-37295 Bone Density - XRAY USE ONLY 10:27:12 CDT 2 CPT-G0439 Subsequent Annual Wellness Exam 17:54:53 CDT CPT-17062 Foot, left, comp min 3V - XRAY USE ONLY 12:22:49 CDT CPT-G0009 Administration of Pneumococcal Vaccine 3 12:18:00 CDT CPT-08447 Pneumovax 23 Injection Injectable 25 MCG /0.5ML 12:18:00 CDT CPT-J0897 Prolia 60 mg 14:14:16 GAS REGULATOR REPAIRER HELPER CPT-39128 Abx/Therapy Injection 14:14:15 GAS REGULATOR REPAIRER HELPER CPT-11200 Lipid - LAB USE ONLY 10:01:52 GAS REGULATOR REPAIRER HELPER 2 CPT-50402 Calcium - LAB USE ONLY 10:01:51 GAS REGULATOR REPAIRER HELPER CPT-08108 Venipuncture Draw Fee 10:01:51 GAS REGULATOR REPAIRER HELPER CPT-LR Lesion Removal 16:22:01 GAS REGULATOR REPAIRER HELPER CPT-65485 TSH - LAB USE ONLY 14:26:02 CDT CPT-12966 CMP - LAB USE ONLY 14:26:01 CDT CPT-94602 CBC with Diff - LAB USE ONLY 14:26:01 CDT 2 CPT-64492 Venipuncture Draw Fee 14:26:01 CDT CPT-40014 First Vx - Ix admin for Medicare patients 13:27:08 CDT CPT-67824 Fluzone High-Dose Intramuscular Suspension 11/26 13:27:08 CDT CPT-G0438 Initial Annual Wellness Exam 14:19:57 CD T CPT-G0009 Administration of Pneumococcal Vaccine 9 11:36:25 CDT CPT-56057 Prevnar 13 Intramuscular Suspension 1 1:36:25 CDT CPT-55348 Prevnar 13 Intramuscular Suspension 1 0:40:58 CDT CPT-J0897 Prolia 60 mg 10:37:16 CDT CPT-83378 Abx/Therapy Injection 10:37:16 CDT CPT-J0897 Prolia 60 mg 16:09:34 GAS REGULATOR REPAIRER HELPER CPT-J0897 Prolia 60 mg 11:10:35 GAS REGULATOR REPAIRER HELPER CPT-20622 Abx/Therapy Injection 11:10:35 GAS REGULATOR REPAIRER HELPER CPT-000 Give Appropriate Flu Vaccine 17:01:15 GAS REGULATOR REPAIRER HELPER 2 CPT-49073 Fluzone High Dose (65+) 15:03:08 GAS REGULATOR REPAIRER HELPER 02/15 CPT-16757 Immunization Single Admin 15:03:08 GAS REGULATOR REPAIRER HELPER 2014 CPT-OV Office Visit 15:58:06 CDT CPT-J0897 Prolia 60 mg 08:45:38 CDT CPT-68139 Abx/Therapy Injection 08:45:38 CDT CPT-J3420 Vitamin B12 1000mcg (Cyanocobalamin) 09:26:20 GAS REGULATOR REPAIRER HELPER CPT-98868 Abx/Therapy Injection 09:26:20 GAS REGULATOR REPAIRER HELPER CPT-J3420 Vitamin B12 1000mcg (Cyanocobalamin) 09:44:40 GAS REGULATOR REPAIRER HELPER CPT-95239 Abx/Therapy Injection 09:44:40 GAS REGULATOR REPAIRER HELPER CPT-J3420 Vitamin B12 1000mcg (Cyanocobalamin) 09:15:54 GAS REGULATOR REPAIRER HELPER CPT-54927 Abx/Therapy Injection 09:15:54 GAS REGULATOR REPAIRER HELPER CPT-J3420 Vitamin B12 1000mcg (Cyanocobalamin) 09:46:44 GAS REGULATOR REPAIRER HELPER CPT-65972 Abx/Therapy Injection 09:46:44 GAS REGULATOR REPAIRER HELPER CPT-J3420 Vitamin B12 1000mcg (Cyanocobalamin) 09:47:34 GAS REGULATOR REPAIRER HELPER CPT-20322 Abx/Therapy Injection 09:47:34 GAS REGULATOR REPAIRER HELPER CPT-J3420 Vitamin B12 1000mcg (Cyanocobalamin) 14:35:50 GAS REGULATOR REPAIRER HELPER CPT-J3420 Vitamin B12 1000mcg (Cyanocobalamin) 09:25:05 GAS REGULATOR REPAIRER HELPER CPT-73208 Abx/Therapy Injection 09:25:05 GAS REGULATOR REPAIRER HELPER CPT-G0008 Administration of Influenza Virus Vaccine 13:36:47 CDT CPT-58505 Fluzone High-Dose Intramuscular Suspension 11/15 13:36:47 CDT CPT-J0897 Prolia 60 mg 08:50:41 CDT CPT-89017 Abx/Therapy Injection 08:50:41 CDT CPT-46792 Bone Density 12:06:12 CDT CPT-09345 Bone Density 08:54:40 CDT CPT-OV Office Visit 15:37:02 CDT CPT-48415 Postop F/U Visit 15:47:49 CDT CPT-31793 Postop F/U Visit 15:21:02 CDT CPT-TCMH Transitional Care Mgmt-High 07:52:27 CDT 20 20/06/01 CPT-52791 Venipuncture Draw Fee 13:51:18 CDT CPT-06852 Venipuncture Draw Fee 10:14:55 GAS REGULATOR REPAIRER HELPER CPT-09309 Venipuncture Draw Fee 13:39:45 GAS REGULATOR REPAIRER HELPER CPT-OV Office Visit 15:11:22 GAS REGULATOR REPAIRER HELPER CPT-25480 Venipuncture Draw Fee 09:20:49 GAS REGULATOR REPAIRER HELPER CPT-33238 Venipuncture Draw Fee 16:52:15 GAS REGULATOR REPAIRER HELPER CPT-44822 Venipuncture Draw Fee 10:37:24 GAS REGULATOR REPAIRER HELPER CPT-80312 Venipuncture Draw Fee 08:21:21 GAS REGULATOR REPAIRER HELPER CPT-47131 Venipuncture Draw Fee 08:30:20 GAS REGULATOR REPAIRER HELPER CPT-35329 Venipuncture Draw Fee 14:53:21 GAS REGULATOR REPAIRER HELPER CPT-61027 Venipuncture Draw Fee 09:40:56 GAS REGULATOR REPAIRER HELPER CPT-03550 Venipuncture Draw Fee 10:30:47 GAS REGULATOR REPAIRER HELPER CPT-86066 Venipuncture Draw Fee 10:46:17 GAS REGULATOR REPAIRER HELPER CPT-10849 Venipuncture Draw Fee 11:12:45 GAS REGULATOR REPAIRER HELPER CPT-27281 Venipuncture Draw Fee 09:53:33 GAS REGULATOR REPAIRER HELPER CPT-78803 Venipuncture Draw Fee 11:53:51 GAS REGULATOR REPAIRER HELPER CPT-97445 Venipuncture Draw Fee 10:33:50 GAS REGULATOR REPAIRER HELPER CPT-76408 Venipuncture Draw Fee 10:05:01 GAS REGULATOR REPAIRER HELPER CPT-26614 Venipuncture Draw Fee 14:32:52 GAS REGULATOR REPAIRER HELPER CPT-15984 Venipuncture Draw Fee 09:46:13 GAS REGULATOR REPAIRER HELPER CPT-78372 Venipuncture Draw Fee 11:34:27 GAS REGULATOR REPAIRER HELPER CPT-66597 Venipuncture Draw Fee 13:17:16 GAS REGULATOR REPAIRER HELPER CPT-70522 Venipuncture Draw Fee 12:05:39 CDT CPT-86238 Venipuncture Draw Fee 12:49:12 CDT CPT-99355 Venipuncture Draw Fee 12:37:18 CDT CPT-41795 Venipuncture Draw Fee 10:57:11 CDT CPT-85932 Venipuncture Draw Fee 13:47:40 CDT CPT-57141 Venipuncture Draw Fee 10:02:17 CDT CPT-01495 TB Tubersol 17:32:32 CDT CPT-OV Office Visit 16:21:53 CDT CPT-OV Office Visit 15:49:22 CDT CPT-OV Office Visit 17:16:31 CDT CPT-OV Office Visit 10:43:31 CDT
--- OUTSIDE RECORDS SUMMARY | 2019-02-09 12:13 | XMS REPORT | Clinical Summary ---
Author Author Renaldo, Florecita Munoz Organization [facility] [employer] Address Unknown Phone Unavailable Allergies, Adverse Reactions, [...] PhD Hyperpotassemia GERD 530.81 Resolved Kylie Yokum TERMINATION CLERK Esophageal reflux Health maintenance exam V70.0 Resolved Adolfo Yates MD Routine general medical examination at a health care facility Anemia 285.9 Resolved Kylie Holt TERMINATION CLERK Anemia, unspecified Personal history of malignant neoplasm of large intestine V10.05 Active Adam Yates MD Personal history of malignant neoplasm of large intestine Hypomagnesemia 275.2 Resolved Kylie Holt TERMINATION CLERK Disorders of magnesium metabolism Weakness 780.79 [...] Sebaceous cyst, scalp 706.2 Resolved Kylie Yokum TERMINATION CLERK Sebaceous cyst Cervical lymphadenopathy, anterior, left 785.6 Resolv ed Kylie Yokum TERMINATION CLERK Enlargement of lymph nodes Need for prophylactic vaccination and inoculation against in fluenza V04.81 Resolved Adam Yates MD Need for prophylactic vaccination and inoculation against influenza Preventive health care V70.0 Active Kylie Yokum TERMINATION CLERK Routine general medical examination at a health care facility Thyroid nodule, left 241.0 Active Kylie Yokum A PRN Nontoxic uninodular goiter Screening mammogram V76.12 Active Kylie Yokum AP RN Other screening mammogram Mandy 706.2 Resolved Kylie Yokum TERMINATION CLERK Sebaceous cyst Colon cancer, ascending 153.6 Resolved Kylie Yok um TERMINATION CLERK Malignant neoplasm of ascending colon Foot pain, left 729.5 Active 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 Splinter 919.6 Active Kylie Yokum TERMINATION CLERK Superficial foreign body (splinter) of other, multiple, and unspecified sites, without major open wound and without mention of infection Rash 782.1 Active Kylie Yokum TERMINATION CLERK R aurora and other nonspecific skin eruption ADENOCARCINOMA, COLON, 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 Dick Yates MD ABDOMINAL PAIN, GENERALIZED ICD-789.07 Inactive Hope Benavidez MD PhD FEVER UNSPECIFIED ICD-780.60 Inactive Hope cohn MD PhD UNSPECIFIED VENOUS INSUFFICIENCY ICD-459.81 Elda ctive Adam Yates MD ADENOCARCINOMA, 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 Inac tive Hope Benavidez MD PhD Hyperkalemia ICD-276.7 Inactive Hope Benavidez MD PhD GERD ICD-530.81 Inactive Kylie Yokum TERMINATION CLERK 2015 Health maintenance exam ICD-V70.0 Inactive Adolfo Yates MD Anemia ICD-285.9 Inactive Kylie Yokum TERMINATION CLERK 07/24 Hypomagnesemia ICD-275.2 Inactive Kylie Yokum TERMINATION CLERK ABDOMINAL PAIN, RIGHT LOWER QUADRANT ICD-789.03 Inactive Kina Joshua TERMINATION CLERK Colon cancer ICD-153.9 Inactive Adam luna MD Asymptomatic postmenopausal status (age-related) (natural) I CD-V49.81 Inactive Hope Benavidze MD PhD Diarrhea, functional ICD-564.5 Inactive Selena Yates MD Dysuria ICD-788.1 Inactive Hope Benavidez MD PhD 201 05/19/01 Adenocarcinoma, ascending colon ICD-153.6 Inac abdelrahman Yates MD Sebaceous cyst, scalp ICD-706.2 Inactive Tracy hi Yokum TERMINATION CLERK Cervical lymphadenopathy, anterior, left ICD-785.6 Inactive Kylie Yokum TERMINATION CLERK Need for prophylactic vaccination and inoculation against in fluenza ICD-V04.81 Inactive Adam Yates MD Mandy ICD-706.2 Inactive Kylie Holt TERMINATION CLERK 07/20 Colon cancer, ascending ICD-153.6 Inactive K umang Holt TERMINATION CLERK Weakness ICD-780.79 Inactive Hope Benavidez MD P hD Aftercare following surgery of the teeth,oral cavity a nd digestive system, NEC ICD-V58.75 Inactive Adam Yates MD Medication List Medication Instructions Start Date Stop Date Generic Name NDC Status Provider Patient Instruction VOLTAREN 1 % TRANSDERMAL GEL apply q 6-8 hour to left arm as needed for pain DICLOFENAC SODIUM 93064048755 Active Kylie Lundum TERMINATION CLERK Active COQ10 100 MG ORAL CAPSULE 1 daily COENZYME Q10 912703 42159 Active LETY Nation Active VITAMIN D3 2000 UNIT ORAL CAPSULE Melaleuca-One daily CHOLECALCIFEROL 20438047040 Active Kylie Lundum TERMINATION CLERK Active PROBIOTIC DAILY ORAL CAPSULE Take one daily PROBIO TIC PRODUCT 94665129560 Active Kylie Lundum TERMINATION CLERK Active IRON 325 (65 Fe) MG ORAL TABLET 1 every other day FERROUS SULFATE 90425615729 No Longer Active Kylie Lundum AMY Active FLORANEX ORAL PACKET 1 pack three times daily, for bowel health LACTOBACILLUS 53616402412 No Longer Active Kylie Polagabbium TERMINATION CLERK Active LOMOTIL 2.5-0.025 MG ORAL TABLET 1 tab by mouth prn 23/10/23 DIPHENOXYLATE-ATROPINE 22052253999 No Longer Active Kylie Yokum TERMINATION CLERK Active MAGNESIUM GLUCONATE 250 MG ORAL TABLET 1 tab tid 23/10/23 MAGNESIUM GLUCONATE 39309907554 No Longer Active Kylie Yokum TERMINATION CLERK Active CYANOCOBALAMIN 1000 MCG/ML INJECTION SOLUTION 1 injection ev ruben 2 weeks CYANOCOBALAMIN 59799120524 No Longer Active Kylie boyd TERMINATION CLERK Active ATENOLOL 25 MG ORAL TABLET 1/2 pill by mouth daily, fo r headaches, blood pressure ATENOLOL 82516185903 Active Kylie Lundum TERMINATION CLERK Active PROPRANOLOL HCL 80 MG ORAL TABLET 1 tab tue. and thur. PROPRANOLOL HCL 07140327806 No Longer Active Hope Benavidez MD PhD A ctive VITAMIN D3 4000 IU 1 tab 3 times daily VITAMIN D3 4000 IU No Longer Active Hope Benavidez MD PhD Active BACTRIM DS 800-160 MG ORAL TABLET 1 pill by mouth twice claudio y, for UTI SULFAMETHOXAZOLE-TRIMETHOPRIM 98859788908 No Longer Active Hope Benavidez MD PhD Active PROLIA 60 MG/ML SUBCUTANEOUS SOLUTION 1 shot every 6 months for osteoprosis DENOSUMAB 48184783668 Active Hope Benavidez MD PhD Active CALCIUM + D + K 750-500-40 MG-UNT-MCG ORAL TABLET 1 tab by m [facility] twice daily CALCIUM-VITAMIN D-VITAMIN K 20845447997 Active Hope valdez MD PhD Active DAILY VALUE MULTIVITAMIN ORAL TABLET 1 tab by mouth twice daily 201 05/16/14 MULTIPLE VITAMIN 48495117277 Active Hope Benavidez MD PhD Acti ve FISH OIL 306 MG CAPS 1 tab by mouth three times daily OMEGA-3 FATTY ACIDS 19731617021 Active Hope Benavidez MD PhD Active LUTEIN 10 MG ORAL TABLET 1 tab daily LUTEIN 86087824 408 Active Hope Benavidez MD PhD Active TRIAMTERENE-HCTZ 37.5-25 MG ORAL TABLET 1 tab by mouth daily 10/22 TRIAMTERENE-HCTZ 22881752032 Active Kylie Holt TERMINATION CLERK Active CYCLOBENZAPRINE HCL 10 MG ORAL TABLET 1 tablet by mout h three times daily as needed for headaches CYCLOBENZAPRINE HCL 95158146795 No Longer Active Adam Yates MD Active OMEPRAZOLE 20 MG ORAL CAPSULE DELAYED RELEASE 1 tablet by mo [facility] daily for GERD OMEPRAZOLE 88893643926 No Longer Active Adam Yates MD Active ZOFRAN 8 MG ORAL TABLET 1 tab by mouth every 12 hours prn 4 ONDANSETRON HCL 70589010735 No Longer Active Adam Yates MD Active PHENADOZ 25 MG RECTAL SUPPOSITORY 1 every 4 hrs. PRN 2 PROMETHAZINE HCL 81246038688 No Longer Active Adam Yates MD A ctive POTASSIUM CHLORIDE 20 MEQ ORAL PACKET by mouth twice a day prn 2 POTASSIUM CHLORIDE 58549580598 No Longer Active Adam Carpenter MD Active PROMETHAZINE HCL 25 MG ORAL TABLET 1 Q. 4 hr. PRN PROMETHAZINE HCL 21950643723 No Longer Active Adam Yates MD Active INNOPRAN XL 120 MG ORAL CAPSULE EXTENDED RELEASE 24 HO UR Take one by mouth daily PROPRANOLOL HCL SR BEADS 22099959720 No Longer Active Adam Yates MD Active FLAGYL 500 MG ORAL TABLET 1 pill by mouth three times daily, for diarrhea METRONIDAZOLE 09805368822 No Longer Active Hope landers MD PhD Active DYAZIDE 37.5-25 MG ORAL CAPSULE 1 qd TRIA MTERENE-HCTZ 93938753800 No Longer Active Hope Benavidez MD PhD Active PROZAC 20 MG ORAL CAPSULE 1 q d FLUOXETINE HCL 79067200882 No Longer Active Hope Benavidez MD PhD Active SIMVASTATIN 40 MG ORAL TABLET 1 qd SIMVAS TATIN 75052314938 No Longer Active Adam Yates MD Active MELOXICAM 15 MG ORAL TABLET 1 qd MELOXICAM 39231728049 No Longer Active Adam Yates MD Active IMODIUM A-D 2 MG ORAL TABLET 2 onset at diarrhea and prn. LOPERAMIDE HCL 84618611633 Active Hope Benavidez MD PhD Active EXCEDRIN EXTRA STRENGTH 250-250-65 MG ORAL TABLET 1-2 q6h SC N headache TSCZOTR-[id number]-IFWAIKYP 45116296810 Active Hope Benavidez MD PhD Active FLAGYL 500 MG ORAL TABLET 1 qid METRONIDAZOL E 80284396842 No Longer Active Adam Yates MD Active LEVAQUIN 750 MG ORAL TABLET 1 qd LEVOFLOXAC IN 57621990754 No Longer Active Adam Yates MD Active ADULT ASPIRIN LOW STRENGTH 81 MG ORAL TABLET DISINTEGRATING 1 qd ASPIRIN 29831567771 Active Hope Benavidez MD PhD Active LEVAQUIN 750 MG ORAL TABLET 1 qd LEVAQUIN 750 MG ORAL TABLET 712855 LEVOFLOXACIN Inactive FLAGYL 500 MG ORAL TABLET 1 qid FLAGYL 500 MG ORAL TABLET 829033 METRONIDAZOLE Inactive MELOXICAM 15 MG ORAL TABLET 1 qd MELOXICAM 15 MG ORAL TABLET 652188 MELOXICAM Inactive SIMVASTATIN 40 MG ORAL TABLET 1 qd SIMVASTATIN 40 MG ORAL TABLET 585913 SIMVASTATIN Inactive PROZAC 20 MG ORAL CAPSULE 1 q d PROZAC 20 MG ORAL CAPSULE 838122 FLUOXETINE HCL Inactive DYAZIDE 37.5-25 MG ORAL CAPSULE 1 qd 5 DYAZIDE 37.5-25 MG ORAL CAPSULE 426145 TRIAMTERENE-HCTZ Inactive INNOPRAN XL 120 MG ORAL CAPSULE EXTENDED RELEASE 24 HO UR Take one by mouth daily INNOPRAN XL 120 MG ORAL CAPSULE EXTENDED RELEASE 24 HOUR PROPRANOLOL HCL SR BEADS Inactive PROMETHAZINE HCL 25 MG ORAL TABLET 1 Q. 4 hr. PRN 2013 PROMETHAZINE HCL 25 MG ORAL TABLET 585280 PROMETHAZINE HCL Inactive POTASSIUM CHLORIDE 20 MEQ ORAL PACKET by mouth twice a day prn 2 POTASSIUM CHLORIDE 20 MEQ ORAL PACKET 0219330 POTASSIUM CHLORIDE Inactive PHENADOZ 25 MG RECTAL SUPPOSITORY 1 every 4 hrs. PRN 2 PHENADOZ 25 MG RECTAL SUPPOSITORY 025494 PROMETHAZINE HCL Inactive ZOFRAN 8 MG ORAL TABLET 1 tab by mouth every 12 hours prn 4 ZOFRAN 8 MG ORAL TABLET 686394 ONDANSETRON HCL Inactive OMEPRAZOLE 20 MG ORAL CAPSULE DELAYED RELEASE 1 tablet by mo uth daily for GERD OMEPRAZOLE 20 MG ORAL CAPSULE DELAYED RELEASE 19 8051 OMEPRAZOLE Inactive CYCLOBENZAPRINE HCL 10 MG ORAL TABLET 1 tablet by mout h three times daily as needed for headaches CYCLOBENZAPRINE HCL 10 MG ORAL TABLET 657768 CYCLOBENZAPRINE HCL Inactive VITAMIN D3 4000 IU 1 tab 3 times daily VITAMIN D3 4000 IU Inactive PROPRANOLOL HCL 80 MG ORAL TABLET 1 tab tue. and thur. PROPRANOLOL HCL 80 MG ORAL TABLET 715838 PROPRANOLOL HCL Inacti ve CYANOCOBALAMIN 1000 MCG/ML INJECTION SOLUTION 1 injection ev ruben 2 weeks CYANOCOBALAMIN 1000 MCG/ML INJECTION SOLUTION 30 9594 CYANOCOBALAMIN Inactive MAGNESIUM GLUCONATE 250 MG ORAL TABLET 1 tab tid 20 23/10/23 MAGNESIUM GLUCONATE 250 MG ORAL TABLET 803176 MAGNESIUM GLUCONATE Inactive LOMOTIL 2.5-0.025 MG ORAL TABLET 1 tab by mouth prn 20 23/10/23 LOMOTIL 2.5-0.025 MG ORAL TABLET 8339442 DIPHENOXYLATE-ATROPINE Inac tive FLORANEX ORAL PACKET 1 pack three times daily, for bowel health FLORANEX ORAL PACKET LACTOBACILLUS Inactive IRON 325 (65 Fe) MG ORAL TABLET 1 every other day 2015 IRON 325 (65 Fe) MG ORAL TABLET 334790 FERROUS SULFATE Inactive FLAGYL 500 MG ORAL TABLET 1 pill by mouth three times daily, for diarrhea FLAGYL 500 MG ORAL TABLET 345133 METRONIDAZOLE I nactive BACTRIM DS 800-160 MG ORAL TABLET 1 pill by mouth twice claudio y, for UTI BACTRIM DS 800-160 MG ORAL TABLET 814656 SULFAMETHOXAZOLE-TRIMETHOPRIM Inactive Advance Directives Directive Description Start [...] 11 .0-15.0 platelet count 157 THOUSAND/UL 10*3/mm3 972-936 0143/04/20 mean platelet volume 8.9 fL 7.5-12.5 Lab Report: [facility] - Serology carcinoembryonic antigen 0.9 ng/mL Encounters Code Encounter Date Provider Facility CPT-96453 Level 2 Est. Patient 14:27:16 THEORETICAL PHYSICIST Kylie Lund [facility] CPT-57304 Level 3 Est. Patient 17:54:48 CDT Kylie Lund [facility] CPT-96696 Level 3 Est. Patient 16:26:30 CDT Kina blackmon [facility] CPT-00570 Level 3 New Patient 16:22:01 THEORETICAL PHYSICIST Adam Yates MD [facility] CPT-82641 Level 4 Est. Patient 17:00:48 CDT Kylie Lund [facility] CPT-35134 Level 3 Est. Patient 13:15:54 CDT Kylie Lund [facility] CPT-07531 Level 3 Est. Patient 09:10:11 CDT Kylie Lund [facility] CPT-04199 Level 4 Est. Patient 12:08:30 THEORETICAL PHYSICIST Hope cohn MD PhD [facility] CPT-99740 Level 4 Est. Patient 19:08:42 THEORETICAL PHYSICIST Hope ochn MD PhD [facility] CPT-68716 Level 4 Est. Patient 20:04:51 CDT Hope cohn MD PhD [facility] CPT-29093 Level 3 New Patient 01:46:11 THEORETICAL PHYSICIST Hope landers MD PhD [facility] Procedures Code Procedure Name Date Entry Date Standard Desc ription CPT-70011 First Vx - Ix admin for Medicare patients 11:19:30 CDT CPT-07518 Fluzone High-Dose Intramuscular Suspension 12/07 11:19:30 CDT CPT-J0897 Prolia 60 mg 14:55:42 CDT CPT-35865 Abx/Therapy Injection 14:55:42 CDT CPT-08809 Bone Density - XRAY USE ONLY 10:27:12 CDT 2 CPT-G0439 [facility] Annual Wellness Exam 17:54:53 CDT CPT-31673 Foot, left, comp min 3V - XRAY USE ONLY 12:22:49 CDT CPT-G0009 Administration of Pneumococcal Vaccine 3 12:18:00 CDT CPT-41903 Pneumovax 23 Injection Injectable 25 MCG /0.5ML 12:18:00 CDT CPT-J0897 Prolia 60 mg 14:14:16 THEORETICAL PHYSICIST CPT-06129 Abx/Therapy Injection 14:14:15 THEORETICAL PHYSICIST CPT-57168 Lipid - LAB USE ONLY 10:01:52 THEORETICAL PHYSICIST 2 CPT-93517 Calcium - LAB USE ONLY 10:01:51 THEORETICAL PHYSICIST CPT-23637 Venipuncture Draw Fee 10:01:51 THEORETICAL PHYSICIST CPT-LR Lesion Removal 16:22:01 THEORETICAL PHYSICIST CPT-07603 TSH - LAB USE ONLY 14:26:02 CDT CPT-82805 CMP - LAB USE ONLY 14:26:01 CDT CPT-88171 CBC with Diff - LAB USE ONLY 14:26:01 CDT 2 CPT-54711 Venipuncture Draw Fee 14:26:01 CDT CPT-38548 First Vx - Ix admin for Medicare patients 13:27:08 CDT CPT-38608 Fluzone High-Dose Intramuscular Suspension 11/26 13:27:08 CDT CPT-G0438 Initial Annual Wellness Exam 14:19:57 CD T CPT-G0009 Administration of Pneumococcal Vaccine 9 11:36:25 CDT CPT-99285 Prevnar 13 Intramuscular Suspension 1 1:36:25 CDT CPT-00868 Prevnar 13 Intramuscular Suspension 1 0:40:58 CDT CPT-J0897 Prolia 60 mg 10:37:16 CDT CPT-92075 Abx/Therapy Injection 10:37:16 CDT CPT-J0897 Prolia 60 mg 16:09:34 THEORETICAL PHYSICIST CPT-J0897 Prolia 60 mg 11:10:35 THEORETICAL PHYSICIST CPT-18424 Abx/Therapy Injection 11:10:35 THEORETICAL PHYSICIST CPT-000 Give Appropriate Flu Vaccine 17:01:15 THEORETICAL PHYSICIST 2 CPT-61917 Fluzone High Dose (65+) 15:03:08 THEORETICAL PHYSICIST 02/15 CPT-24906 Immunization Single Admin 15:03:08 THEORETICAL PHYSICIST 2014 CPT-OV Office Visit 15:58:06 CDT CPT-J0897 Prolia 60 mg 08:45:38 CDT CPT-85862 Abx/Therapy Injection 08:45:38 CDT CPT-J3420 Vitamin B12 1000mcg (Cyanocobalamin) 09:26:20 THEORETICAL PHYSICIST CPT-61662 Abx/Therapy Injection 09:26:20 THEORETICAL PHYSICIST CPT-J3420 Vitamin B12 1000mcg (Cyanocobalamin) 09:44:40 THEORETICAL PHYSICIST CPT-66535 Abx/Therapy Injection 09:44:40 THEORETICAL PHYSICIST CPT-J3420 Vitamin B12 1000mcg (Cyanocobalamin) 09:15:54 THEORETICAL PHYSICIST CPT-00322 Abx/Therapy Injection 09:15:54 THEORETICAL PHYSICIST CPT-J3420 Vitamin B12 1000mcg (Cyanocobalamin) 09:46:44 THEORETICAL PHYSICIST CPT-09086 Abx/Therapy Injection 09:46:44 THEORETICAL PHYSICIST CPT-J3420 Vitamin B12 1000mcg (Cyanocobalamin) 09:47:34 THEORETICAL PHYSICIST CPT-53137 Abx/Therapy Injection 09:47:34 THEORETICAL PHYSICIST CPT-J3420 Vitamin B12 1000mcg (Cyanocobalamin) 14:35:50 THEORETICAL PHYSICIST CPT-J3420 Vitamin B12 1000mcg (Cyanocobalamin) 09:25:05 THEORETICAL PHYSICIST CPT-02010 Abx/Therapy Injection 09:25:05 THEORETICAL PHYSICIST CPT-G0008 Administration of Influenza Virus Vaccine 13:36:47 CDT CPT-28422 Fluzone High-Dose Intramuscular Suspension 11/15 13:36:47 CDT CPT-J0897 Prolia 60 mg 08:50:41 CDT CPT-64330 Abx/Therapy Injection 08:50:41 CDT CPT-26828 Bone Density 12:06:12 CDT CPT-91427 Bone Density 08:54:40 CDT CPT-OV Office Visit 15:37:02 CDT CPT-80948 Postop F/U Visit 15:47:49 CDT CPT-40633 Postop F/U Visit 15:21:02 CDT [facility] Transitional Care Mgmt-High 07:52:27 CDT 20 20/06/01 CPT-66062 Venipuncture Draw Fee 13:51:18 CDT CPT-70095 Venipuncture Draw Fee 10:14:55 THEORETICAL PHYSICIST CPT-62621 Venipuncture Draw Fee 13:39:45 THEORETICAL PHYSICIST CPT-OV Office Visit 15:11:22 THEORETICAL PHYSICIST CPT-43728 Venipuncture Draw Fee 09:20:49 THEORETICAL PHYSICIST CPT-18872 Venipuncture Draw Fee 16:52:15 THEORETICAL PHYSICIST CPT-32319 Venipuncture Draw Fee 10:37:24 THEORETICAL PHYSICIST CPT-32928 Venipuncture Draw Fee 08:21:21 THEORETICAL PHYSICIST CPT-98578 Venipuncture Draw Fee 08:30:20 THEORETICAL PHYSICIST CPT-00837 Venipuncture Draw Fee 14:53:21 THEORETICAL PHYSICIST CPT-20974 Venipuncture Draw Fee 09:40:56 THEORETICAL PHYSICIST CPT-04767 Venipuncture Draw Fee 10:30:47 THEORETICAL PHYSICIST CPT-85061 Venipuncture Draw Fee 10:46:17 THEORETICAL PHYSICIST CPT-33219 Venipuncture Draw Fee 11:12:45 THEORETICAL PHYSICIST CPT-63136 Venipuncture Draw Fee 09:53:33 THEORETICAL PHYSICIST CPT-21572 Venipuncture Draw Fee 11:53:51 THEORETICAL PHYSICIST CPT-11729 Venipuncture Draw Fee 10:33:50 THEORETICAL PHYSICIST CPT-15453 Venipuncture Draw Fee 10:05:01 THEORETICAL PHYSICIST CPT-20410 Venipuncture Draw Fee 14:32:52 THEORETICAL PHYSICIST CPT-65358 Venipuncture Draw Fee 09:46:13 THEORETICAL PHYSICIST CPT-60692 Venipuncture Draw Fee 11:34:27 THEORETICAL PHYSICIST CPT-12573 Venipuncture Draw Fee 13:17:16 THEORETICAL PHYSICIST CPT-45474 Venipuncture Draw Fee 12:05:39 CDT CPT-34221 Venipuncture Draw Fee 12:49:12 CDT CPT-26855 Venipuncture Draw Fee 12:37:18 CDT CPT-52117 Venipuncture Draw Fee 10:57:11 CDT CPT-91358 Venipuncture Draw Fee 13:47:40 CDT CPT-66837 Venipuncture Draw Fee 10:02:17 CDT CPT-33333 TB Tubersol 17:32:32 CDT CPT-OV Office Visit 16:21:53 CDT CPT-OV Office Visit 15:49:22 CDT CPT-OV Office Visit 17:16:31 CDT CPT-OV Office Visit 10:43:31 CDT
--- OUTSIDE RECORDS SUMMARY | 2019-02-09 12:13 | XMS REPORT | Clinical Summary ---
Author Author Admin, Florecita Munoz Organization [facility] [employer] Address Unknown Phone Unavailable Allergies, Adverse Reactions, [...] malignant neoplasm of large intestine Hypomagnesemia 275.2 Active Hope Benavidez MD PhD Disorders of magnesium metabolism Weakness 780.79 Resolved [...] colon Sebaceous cyst, scalp 706.2 Resolved Kylie Holt [employer]ING [employer] Sebaceous cyst Cervical lymphadenopathy, anterior, left 785.6 Resolv ed Kylie Holt [employer] Enlargement of lymph nodes Need for prophylactic vaccination and inoculation against in fluenza V04.81 Resolved Adam Yates MD Need for prophylactic vaccination and inoculation against influenza Preventive health care V70.0 Active Kylie Holt [employer] Routine general medical examination at a health care facility Thyroid nodule, left 241.0 Active Kylie Holt A PRN Nontoxic uninodular goiter Screening mammogram V76.12 Active Kylie Holt AP RN Other screening mammogram Mandy 706.2 Active Adam Yates MD Sebaceous cyst ABDOMINAL PAIN, RIGHT LOWER QUADRANT ICD-789.03 Inactive Kina Joshua [employer]EPING [employer] ADENOCARCINOMA, COLON, 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 Dick Yates MD ABDOMINAL PAIN, GENERALIZED ICD-789.07 Inactive Hope Benavidez MD PhD FEVER UNSPECIFIED ICD-780.60 Inactive Hope cohn MD PhD UNSPECIFIED VENOUS INSUFFICIENCY ICD-459.81 Elda ctive Adam Yates MD ADENOCARCINOMA, 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 Inac tive Hope Benavidez MD PhD Hyperkalemia ICD-276.7 Inactive Hope Benavidez MD PhD GERD ICD-530.81 Inactive Kylie Holt [employer]ING [employer] 2015 Health maintenance exam ICD-V70.0 Bam Yates MD Anemia ICD-285.9 Inactive Kylie Holt [employer]ING [employer]CTOR 07/24 Weakness ICD-780.79 Inactive Hope Benavidez MD P [...] Sebaceous cyst, scalp ICD-706.2 Inactive Tracy Holt [employer]EPING [employer] CON[employer]CTOR Cervical lymphadenopathy, anterior, left ICD-785.6 Inactive Kylie Holt [employer]EPING [employer] CON[employer]CTOR Need for prophylactic vaccination and inoculation against in fluenza ICD-V04.81 Bam Yates MD Medication List Medication Instructions Start Date Stop Date Generic Name NDC Status Provider Patient Instruction VITAMIN D3 2000 UNIT ORAL CAPS Melaleuca-One daily CHOLECALCIFEROL [id number] Active Kylie Yokum [employer]EPING [employer] CONDUCTOR Active PROBIOTIC DAILY ORAL CAPS Take one daily PROBIOTIC PRODUCT 69862265434 Active Kylie Holt APRN Active IRON 325 (65 FE) MG TABS 1 every other day FERR OUS SULFATE 75715638126 No Longer Active Kylie Holt APRN Active FLORANEX PACK 1 pack three times daily, for bowel health LACTOBACILLUS 10601451470 No Longer Active Kylie Holt APRN Active LOMOTIL 2.5-0.025 MG TABS 1 tab by mouth prn 4 DIPHENOXYLATE-ATROPINE 32888626977 No Longer Active Kylie Holt APRN Active MAGNESIUM GLUCONATE 250 MG TABS 1 tab tid 4 MAGNESIUM GLUCONATE 20173701101 No Longer Active Kylie Holt APRN Active CYANOCOBALAMIN 1000 MCG/ML INJ SOLN 1 injection every 2 weeks 20 20/01/03 CYANOCOBALAMIN 17573175112 No Longer Active Kylie Holt APRN Active ATENOLOL 25 MG ORAL TABS 1/2 pill by mouth daily, for headac hes, blood pressure ATENOLOL 54072709197 Active Kylie Holt APRN Active PROPRANOLOL HCL 80 MG TABS 1 tab tue. and thur. 04/10 PROPRANOLOL HCL 52685714061 No Longer Active Hope Benavidez MD PhD A ctive VITAMIN D3 4000 IU 1 tab 3 times daily VITAMIN D3 4000 IU No Longer Active Hope Benavidez MD PhD Active BACTRIM DS 800-160 MG TABS 1 pill by mouth twice daily, for UTI SULFAMETHOXAZOLE-TRIMETHOPRIM 89524669400 No Longer Active Lisa Benavidez MD PhD Active PROLIA 60 MG/ML SOLN 1 shot every 6 months for osteoprosis DENOSUMAB 83572116971 Active Hope Benavidez MD PhD Active CALCIUM + D + K 750-500-40 MG-UNT-MCG TABS 1 tab by mouth tw ice daily CALCIUM-VITAMIN D-VITAMIN K 17260431551 Active Hope landers MD PhD Active DAILY VALUE MULTIVITAMIN TABS 1 tab by mouth twice daily MULTIPLE VITAMIN 24776594408 Active Hope Benavidez MD PhD Active FISH OIL 306 MG CAPS 1 tab by mouth three times daily OMEGA-3 FATTY ACIDS 30603359745 Active Hope Benavidez MD PhD Active LUTEIN 10 MG TABS 1 tab daily LUTEIN 60151597004 Act cash Hope Benavidez MD PhD Active TRIAMTERENE-HCTZ 37.5-25 MG TABS 1 tab by mouth daily TRIAMTERENE-HCTZ 62925888645 Active Kylie Holt [employer]ING [employer] Active CYCLOBENZAPRINE HCL 10 MG TABS 1 tablet by mouth three times daily as needed for headaches CYCLOBENZAPRINE HCL 84907143729 No Longe r Active Adam Yates MD Active OMEPRAZOLE 20 MG CPDR 1 tablet by mouth daily for GERD OMEPRAZOLE 88902046167 No Longer Active Adam Yates MD A ctive ZOFRAN 8 MG TABS 1 tab by mouth every 12 hours prn 201 05/16/09 ONDANSETRON HCL 18130946204 No Longer Active Adam Yates MD Active PHENADOZ 25 MG SUPP 1 every 4 hrs. PRN PROMETHA ZINE HCL 69564843335 No Longer Active Adam Yates MD Active POTASSIUM CHLORIDE 20 MEQ PACK by mouth twice a day prn POTASSIUM CHLORIDE 43417111237 No Longer Active Adam Yates MD Active PROMETHAZINE HCL 25 MG TABS 1 Q. 4 hr. PRN PROM ETHAZINE HCL 84773647263 No Longer Active Adam Yates MD Active INNOPRAN XL 120 MG [id number] Take one by mouth daily 2 PROPRANOLOL HCL SR BEADS 43385721774 No Longer Active Adam Yates MD A ctive FLAGYL 500 MG TABS 1 pill by mouth three times daily, for diarrh ea METRONIDAZOLE 13201430679 No Longer Active Hope Benavidez MD PhD Active DYAZIDE 37.5-25 MG CAPS 1 qd TRIAMTERENE-HC TZ 04559575366 No Longer Active Hope Benavidez MD PhD Active PROZAC 20 MG CAPS 1 q d FLUOXETINE HCL 47234 802644 No Longer Active Hope Benavidez MD PhD Active SIMVASTATIN 40 MG TABS 1 qd SIMVASTATIN 004 75494518 No Longer Active Adam Yates MD Active MELOXICAM 15 MG TABS 1 qd MELOXICAM 9363046 3312 No Longer Active Adam Yates MD Active IMODIUM A-D 2 MG TABS 2 onset at diarrhea and prn. LOPERAMIDE HCL 81777796072 Active Hope Benavidez MD PhD Active EXCEDRIN EXTRA STRENGTH 250-250-65 MG TABS 1-2 q6h PRN headache 201 04/16/21 [id number] 01756545934 Active Hope Benavidez MD PhD Active FLAGYL 500 MG TABS 1 qid METRONIDAZOLE 84190 088019 No Longer Active Adam Yates MD Active LEVAQUIN 750 MG TABS 1 qd LEVOFLOXACIN 5486 5936458 No Longer Active Adam Yates MD Active ADULT ASPIRIN LOW STRENGTH 81 MG TBDP 1 qd A SPIRIN 14174118138 Active Hope Benavidez MD PhD Active LEVAQUIN 750 MG TABS 1 qd LEVAQUIN 750 MG T ABS 279226 LEVOFLOXACIN Inactive FLAGYL 500 MG TABS 1 qid FLAGYL 500 MG TABS 128271 METRONIDAZOLE Inactive MELOXICAM 15 MG TABS 1 qd MELOXICAM 15 MG T ABS 942189 MELOXICAM Inactive SIMVASTATIN 40 MG TABS 1 qd SIMVASTATIN 40 MG TABS 315028 SIMVASTATIN Inactive PROZAC 20 MG CAPS 1 q d PROZAC 20 MG CAPS 31 0385 FLUOXETINE HCL Inactive DYAZIDE 37.5-25 MG CAPS 1 qd DYAZIDE 37.5 -25 MG CAPS 672961 TRIAMTERENE-HCTZ Inactive INNOPRAN XL 120 MG [id number] Take one by mouth daily 2 INNOPRAN XL 120 MG [id number] PROPRANOLOL HCL SR BEADS Inactive PROMETHAZINE HCL 25 MG TABS 1 Q. 4 hr. PRN PROMETHAZINE HCL 25 MG TABS 777940 PROMETHAZINE HCL Inactive POTASSIUM CHLORIDE 20 MEQ PACK by mouth twice a day prn POTASSIUM CHLORIDE 20 MEQ PACK 487903 POTASSIUM CHLORIDE Inactive PHENADOZ 25 MG SUPP 1 every 4 hrs. PRN PHENADOZ 2 5 MG SUPP 909289 PROMETHAZINE HCL Inactive ZOFRAN 8 MG TABS 1 tab by mouth every 12 hours prn 201 05/16/09 ZOFRAN 8 MG TABS 326497 ONDANSETRON HCL Inactive OMEPRAZOLE 20 MG CPDR 1 tablet by mouth daily for GERD OMEPRAZOLE 20 MG CPDR 911502 OMEPRAZOLE Inactive CYCLOBENZAPRINE HCL 10 MG TABS 1 tablet by mouth three times daily as needed for headaches CYCLOBENZAPRINE HCL 10 MG TABS 781884 CYCLOBENZAPRINE HCL Inactive VITAMIN D3 4000 IU 1 tab 3 times daily VITAMIN D3 4000 IU Inactive PROPRANOLOL HCL 80 MG TABS 1 tab tue. and thur. 04/10 PROPRANOLOL HCL 80 MG TABS 079047 PROPRANOLOL HCL Inactive CYANOCOBALAMIN 1000 MCG/ML INJ SOLN 1 injection every 2 weeks 20 20/01/03 CYANOCOBALAMIN 1000 MCG/ML INJ SOLN 316850 CYANOCOBALAM IN Inactive MAGNESIUM GLUCONATE 250 MG TABS 1 tab tid 4 MAGNESIUM GLUCONATE 250 MG TABS 911266 MAGNESIUM GLUCONATE Inactive LOMOTIL 2.5-0.025 MG TABS 1 tab by mouth prn 4 LOMOTIL 2.5- 0.025 MG TABS 0286205 DIPHENOXYLATE-ATROPINE Inactive FLORANEX PACK 1 pack three times daily, for bowel health FLORANEX PACK LACTOBACILLUS Inactive IRON 325 (65 FE) MG TABS 1 every other day IRON 325 (65 FE) MG TABS 693328 FERROUS SULFATE Inactive FLAGYL 500 MG TABS 1 pill by mouth three times daily, for diarrh ea FLAGYL 500 MG TABS 433137 METRONIDAZOLE Inactive BACTRIM DS 800-160 MG TABS 1 pill by mouth twice daily, for UTI BACTRIM DS 800-160 MG TABS 665082 SULFAMETHOXAZOLE-TRIM ETHOPRIM Inactive Advance Directives Directive Description Start Date [...] Value Unit Range Description blood pressure, diastolic - 8462-4 72 mm[Hg] BP dobson blood pressure, systolic - 8480-6 124 mm[Hg] BP sys pulse rate E&M - 8867-4 64 /min H eart rate temperature E&M 96.8 [degF] Body temp erature weight E&M - 3141-9 147 [lb_av] Weigh t Measured blood pressure, diastolic - 8462-4 63 mm[Hg] BP dobson blood pressure, systolic - 8480-6 124 mm[Hg] BP sys height E&M - 8302-2 63 [in_us] Bdy h eight pulse rate E&M - 8867-4 63 /min H eart rate temperature E&M 97.9 [degF] Body temp erature weight E&M - 3141-9 147.31 [lb_av] Weigh t Measured blood pressure, diastolic - 8462-4 59 mm[Hg] BP dobson blood pressure, systolic - 8480-6 119 mm[Hg] BP sys pulse rate E&M - 8867-4 62 /min H eart rate temperature E&M 97.9 [degF] Body temp erature weight E&M - 3141-9 149.5 [lb_av] Weigh t Measured Diagnostic Results Date Name Value Unit Range Description Lab Report: Calcium - Chemistry calcium, serum 8.7 mg/dL 8.5-10.1 Lab Report: CBC W/DIFF, Comp. Metabolic Panel - Chemistry sodium, serum 142 mmol/L 105-453 0046/04/20 carbon dioxide, venous blood 34.7 mmol/L 21.0-32 .0 potassium, serum 3.5 mmol/L 3.5-5.2 chloride, serum 102 mmol/L 98-107 blood glucose 102 mg/dL 65-110 urea nitrogen, blood 24 mg/dL 7-18 creatinine, serum 1.37 mg/dL 0.55-1.30 alanine aminotransferase (SGPT), serum 72 U/L 12-78 aspartate aminotransferase (SGOT), serum 44 U/L 15-37 calcium, serum 9.0 mg/dL 8.5-10.1 bilirubin, serum, total 0.50 mg/dL 0.00-1.00 Lab Report: CBC W/DIFF, Comp. Metabolic Panel - Hematology leukocyte count, blood 5.9 10^3/MM^3 10*3/mm3 4.6-10.2 neutrophils as percent of blood leukocytes 54.2 % 42.2-75.2 monocytes as percent of blood leukocytes 5.9 % 1.7-9.3 lymphocytes as percent of blood leukocytes 35.6 % 20.5-51.1 erythrocyte (RBC) count 4.48 10^6/MM^3 10*6/mm3 4.04-5.4 8 hemoglobin, blood 14.5 g/dL 12.0-16.0 hematocrit, blood 43.2 % 36.0-46.0 mean corpuscular volume, RBC 97 fL 80-97 mean corpuscular hemoglobin, RBC 32.3 pg 27. 0-31.2 mean corpuscular hemoglobin concentration, RBC 33.5 G/DL % 31.8-35.4 red blood cell distribution width 14.2 % 11 .6-14.8 platelet count 204 10^3/MM^3 10*3/mm3 142-424 Lab Report: CBC W/DIFF, Comp. Metabolic Panel, Thyroid Stimulating Hormo ... - Chemistry sodium, serum 139 mmol/L 188-831 6452/10/20 carbon dioxide, venous blood 32.2 mmol/L 21.0-32 .0 potassium, serum 3.5 mmol/L 3.5-5.2 chloride, serum 101 mmol/L 98-107 blood glucose 104 mg/dL 65-110 urea nitrogen, blood 25 mg/dL 7-18 creatinine, serum 1.39 mg/dL 0.55-1.30 alanine aminotransferase (SGPT), serum 48 U/L 12-78 aspartate aminotransferase (SGOT), serum 30 U/L 15-37 calcium, serum 9.5 mg/dL 8.5-10.1 bilirubin, serum, total 0.50 mg/dL 0.00-1.00 TSH 1.84 m[iU]/mL 0.36-3.74 Lab Report: CBC W/DIFF, Comp. Metabolic Panel, Thyroid Stimulating Hormo ... - Hematology leukocyte count, blood 6.0 10^3/MM^3 10*3/mm3 4.6-10.2 neutrophils as percent of blood leukocytes 53.4 % 42.2-75.2 monocytes as percent of blood leukocytes 4.7 % 1.7-9.3 lymphocytes as percent of blood leukocytes 37.9 % 20.5-51.1 erythrocyte (RBC) count 4.69 10^6/MM^3 10*6/mm3 4.04-5.4 8 hemoglobin, blood 15.1 g/dL 12.0-16.0 hematocrit, blood 44.5 % 36.0-46.0 mean corpuscular volume, RBC 95 fL 80-97 mean corpuscular hemoglobin, RBC 32.2 pg 27. 0-31.2 mean corpuscular hemoglobin concentration, RBC 33.9 G/DL % 31.8-35.4 red blood cell distribution width 14.3 % 11 .6-14.8 platelet count 180 10^3/MM^3 10*3/mm3 142-424 Lab Report: CEA - Serology carcinoembryonic antigen 0.9 ng/mL carcinoembryonic antigen 0.9 ng/mL Lab Report: Lipid Panel, Calcium - Chemi stry cholesterol, serum 200 mg/dL 125-604 0622/11/22 triglyceride, serum, fasting 129 mg/dL 30-200 HDL cholesterol, serum 56 mg/dL 32-96 LDL cholesterol, serum 118 mg/dL 0-130 calcium, serum 9.0 mg/dL 8.5-10.1 Encounters Code Encounter Date Provider Facility CPT-35373 Level 3 New Patient 16:22:01 [employer]ACTOR HELPER Adam Yates MD [facility] CPT-08763 Level 4 Est. Patient 17:00:48 CDT Kylie boyd [facility] CPT-85128 Level 3 Est. Patient 13:15:54 CDT Kylie boyd [facility] CPT-46297 Level 3 Est. Patient 09:10:11 CDT Kylie boyd [employer]EPING [employer] [facility] CPT-80985 Level 4 Est. Patient 12:08:30 SHACTOR HELPER Hope cohn MD PhD [facility] CPT-48054 Level 4 Est. Patient 19:08:42 SHACTOR HELPER Hope cohn MD PhD [facility] CPT-22862 Level 4 Est. Patient 20:04:51 CDT Hope cohn MD PhD [facility] CPT-88147 Level 3 New Patient 01:46:11 SHACTOR HELPER Hope landers MD PhD [facility] Procedures Code Procedure Name Date Entry Date Standard Desc ription CPT-06027 Lipid - LAB USE ONLY 10:01:52 SHACTOR HELPER 2 CPT-43918 Calcium - LAB USE ONLY 10:01:51 [employer]ACTOR HELPER CPT-88146 Venipuncture Draw Fee 10:01:51 SHACTOR HELPER CPT-LR Lesion Removal 16:22:01 SHACTOR HELPER CPT-90955 TSH - LAB USE ONLY 14:26:02 CDT CPT-32842 CMP - LAB USE ONLY 14:26:01 CDT CPT-95065 CBC with Diff - LAB USE ONLY 14:26:01 CDT 2 CPT-90705 Venipuncture Draw Fee 14:26:01 CDT CPT-73119 First Vx - Ix admin for Medicare patients 13:27:08 CDT CPT-06319 Fluzone High-Dose Intramuscular Suspension 11/26 13:27:08 CDT CPT-G0438 Initial Annual Wellness Exam 14:19:57 CD T CPT-G0009 Administration of Pneumococcal Vaccine 9 11:36:25 CDT CPT-70433 Prevnar 13 Intramuscular Suspension 1 1:36:25 CDT CPT-73343 Prevnar 13 Intramuscular Suspension 1 0:40:58 CDT CPT-J0897 Prolia 60 mg 10:37:16 CDT CPT-36349 Abx/Therapy Injection 10:37:16 CDT CPT-J0897 Prolia 60 mg 16:09:34 SHACTOR HELPER CPT-J0897 Prolia 60 mg 11:10:35 SHACTOR HELPER CPT-69059 Abx/Therapy Injection 11:10:35 SHACTOR HELPER CPT-000 Give Appropriate Flu Vaccine 17:01:15 SHACTOR HELPER 2 CPT-16774 Fluzone High Dose (65+) 15:03:08 SHACTOR HELPER 02/15 CPT-25257 Immunization Single Admin 15:03:08 SHACTOR HELPER 2014 CPT-OV Office Visit 15:58:06 CDT CPT-J0897 Prolia 60 mg 08:45:38 CDT CPT-81558 Abx/Therapy Injection 08:45:38 CDT CPT-J3420 Vitamin B12 1000mcg (Cyanocobalamin) 09:26:20 SHACTOR HELPER CPT-67439 Abx/Therapy Injection 09:26:20 SHACTOR HELPER CPT-J3420 Vitamin B12 1000mcg (Cyanocobalamin) 09:44:40 SHACTOR HELPER CPT-45525 Abx/Therapy Injection 09:44:40 SHACTOR HELPER CPT-J3420 Vitamin B12 1000mcg (Cyanocobalamin) 09:15:54 SHACTOR HELPER CPT-80586 Abx/Therapy Injection 09:15:54 SHACTOR HELPER CPT-J3420 Vitamin B12 1000mcg (Cyanocobalamin) 09:46:44 SHACTOR HELPER CPT-03480 Abx/Therapy Injection 09:46:44 SHACTOR HELPER CPT-J3420 Vitamin B12 1000mcg (Cyanocobalamin) 09:47:34 SHACTOR HELPER CPT-20910 Abx/Therapy Injection 09:47:34 SHACTOR HELPER CPT-J3420 Vitamin B12 1000mcg (Cyanocobalamin) 14:35:50 SHACTOR HELPER CPT-J3420 Vitamin B12 1000mcg (Cyanocobalamin) 09:25:05 SHACTOR HELPER CPT-73835 Abx/Therapy Injection 09:25:05 SHACTOR HELPER CPT-G0008 Administration of Influenza Virus Vaccine 13:36:47 CDT CPT-27141 Fluzone High-Dose Intramuscular Suspension 11/15 13:36:47 CDT CPT-J0897 Prolia 60 mg 08:50:41 CDT CPT-48925 Abx/Therapy Injection 08:50:41 CDT CPT-91487 Bone Density 12:06:12 CDT CPT-20878 Bone Density 08:54:40 CDT CPT-OV Office Visit 15:37:02 CDT CPT-18954 Postop F/U Visit 15:47:49 CDT CPT-35098 Postop F/U Visit 15:21:02 CDT CPT-[facility] Transitional Care Mgmt-High 07:52:27 CDT 20 20/06/01 CPT-39326 Venipuncture Draw Fee 13:51:18 CDT CPT-57729 Venipuncture Draw Fee 10:14:55 SHACTOR HELPER CPT-05295 Venipuncture Draw Fee 13:39:45 SHACTOR HELPER CPT-OV Office Visit 15:11:22 SHACTOR HELPER CPT-17046 Venipuncture Draw Fee 09:20:49 SHACTOR HELPER CPT-48537 Venipuncture Draw Fee 16:52:15 SHACTOR HELPER CPT-70347 Venipuncture Draw Fee 10:37:24 SHACTOR HELPER CPT-20274 Venipuncture Draw Fee 08:21:21 SHACTOR HELPER CPT-16058 Venipuncture Draw Fee 08:30:20 SHACTOR HELPER CPT-90703 Venipuncture Draw Fee 14:53:21 SHACTOR HELPER CPT-59364 Venipuncture Draw Fee 09:40:56 SHACTOR HELPER CPT-57163 Venipuncture Draw Fee 10:30:47 SHACTOR HELPER CPT-38402 Venipuncture Draw Fee 10:46:17 SHACTOR HELPER CPT-54402 Venipuncture Draw Fee 11:12:45 SHACTOR HELPER CPT-05999 Venipuncture Draw Fee 09:53:33 SHACTOR HELPER CPT-82650 Venipuncture Draw Fee 11:53:51 SHACTOR HELPER CPT-30482 Venipuncture Draw Fee 10:33:50 SHACTOR HELPER CPT-06071 Venipuncture Draw Fee 10:05:01 SHACTOR HELPER CPT-22008 Venipuncture Draw Fee 14:32:52 SHACTOR HELPER CPT-01462 Venipuncture Draw Fee 09:46:13 SHACTOR HELPER CPT-26873 Venipuncture Draw Fee 11:34:27 SHACTOR HELPER CPT-17938 Venipuncture Draw Fee 13:17:16 SHACTOR HELPER CPT-66139 Venipuncture Draw Fee 12:05:39 CDT CPT-68312 Venipuncture Draw Fee 12:49:12 CDT CPT-35590 Venipuncture Draw Fee 12:37:18 CDT CPT-41908 Venipuncture Draw Fee 10:57:11 CDT CPT-66821 Venipuncture Draw Fee 13:47:40 CDT CPT-19006 Venipuncture Draw Fee 10:02:17 CDT CPT-97322 TB Tubersol 17:32:32 CDT CPT-OV Office Visit 16:21:53 CDT CPT-OV Office Visit 15:49:22 CDT CPT-OV Office Visit 17:16:31 CDT CPT-OV Office Visit 10:43:31 CDT
--- OUTSIDE RECORDS SUMMARY | 2019-02-09 12:14 | XMS REPORT | Clinical Summary ---
Author Author Renaldo, Florecita Munoz Organization [facility] [employer] Address Unknown Phone Unavailable Allergies, Adverse Reactions, [...] Hyperpotassemia GERD 530.81 Resolved Kylie Yokum MANAGER BEHAVIOR Esophageal reflux Health maintenance exam V70.0 Resolved Adolfo Yates MD Routine general medical examination at a health care facility Anemia 285.9 Resolved Kylie Yanet MANAGER BEHAVIOR Anemia, unspecified Personal history of malignant neoplasm of large intestine V10.05 Active Adam Yates MD Personal history of malignant neoplasm of large intestine Hypomagnesemia 275.2 Resolved Kylie Yanet MANAGER BEHAVIOR Disorders of magnesium metabolism Weakness 780.79 Resolved [...] cyst, scalp 706.2 Resolved Kylie Yokum MANAGER BEHAVIOR Sebaceous cyst Cervical lymphadenopathy, anterior, left 785.6 Resolv ed Kylie Yokum MANAGER BEHAVIOR Enlargement of lymph nodes Need for prophylactic vaccination and inoculation against in fluenza V04.81 Resolved Adam Yates MD Need for prophylactic vaccination and inoculation against influenza Preventive health care V70.0 Resolved Kylie Escalonaku m MANAGER BEHAVIOR Routine general medical examination at a health care facility Thyroid nodule, left 241.0 Active Kylie Yokum A PRN Nontoxic uninodular goiter Screening mammogram V76.12 Resolved Kylie Yokum A PRN Other screening mammogram Mandy 706.2 Resolved Kylie Yokum MANAGER BEHAVIOR Sebaceous cyst Colon cancer, ascending 153.6 Resolved Kylie Yok um MANAGER BEHAVIOR Malignant neoplasm of ascending colon Foot pain, left 729.5 Resolved Kylie Yokum MANAGER BEHAVIOR Pain in limb Splinter 919.6 Resolved Kylie Yokum MANAGER BEHAVIOR Superficial foreign body (splinter) of other, multiple, and unspecified sites, without major open wound and without mention of infection Rash 782.1 Resolved Kylie Yokum MANAGER BEHAVIOR Rash and other nonspecific skin eruption Cyst 706.2 Resolved Kylie Yokum MANAGER BEHAVIOR Sebaceous cyst Body Mass Index 23.0-23.9 Adult Active Kylie Yokum MANAGER BEHAVIOR Body Mass Index between 19-24, adult Unspecified fall, initial encounter E888.9 Inactive Kylieshubham Holt MANAGER BEHAVIOR Unspecified fall Eye pain, left 379.91 Inactive Kylie Yogabbium MANAGER BEHAVIOR Pain in or around eye Pharyngitis, acute 074.0 Active Kylieshubham Holt APR N Herpangina ABDOMINAL PAIN, RIGHT LOWER QUADRANT ICD-789.03 Inactive Kina Joshua MANAGER BEHAVIOR ADENOCARCINOMA, COLON, 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 Dick Yates MD ABDOMINAL PAIN, GENERALIZED ICD-789.07 Inactive Hope Benavidez MD PhD FEVER UNSPECIFIED ICD-780.60 Inactive Hope cohn MD PhD UNSPECIFIED VENOUS INSUFFICIENCY ICD-459.81 Elda ctive Adam Yates MD ADENOCARCINOMA, 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 Inac tive Hope Benavidez MD PhD Hyperkalemia ICD-276.7 Inactive Hope Benavidez MD PhD GERD ICD-530.81 Inactive Kylie Lundum MANAGER BEHAVIOR 2015 Health maintenance exam ICD-V70.0 Bam Yates MD Anemia ICD-285.9 Inactive Kylie Lundum MANAGER BEHAVIOR 07/24 Hypomagnesemia ICD-275.2 Inactive Kylie Yokum MANAGER BEHAVIOR Weakness ICD-780.79 Inactive Hope Benavidez MD P [...] scalp ICD-706.2 Inactive Tracy hi Yokum MANAGER BEHAVIOR Cervical lymphadenopathy, anterior, left ICD-785.6 Inactive Kylie Yokum MANAGER BEHAVIOR Need for prophylactic vaccination and inoculation against in fluenza ICD-V04.81 Inactive Adam Yates MD Preventive health care ICD-V70.0 Inactive Ka thi Yokum MANAGER BEHAVIOR Screening mammogram ICD-V76.12 Inactive Kylie Yokum MANAGER BEHAVIOR Mandy ICD-706.2 Inactive Kylie Yokum MANAGER BEHAVIOR 07/20 Colon cancer, ascending ICD-153.6 Inactive K athi Yokum MANAGER BEHAVIOR Foot pain, left ICD-729.5 Inactive Kylie Yokum MANAGER BEHAVIOR Splinter ICD-919.6 Inactive Kylie Yokum MANAGER BEHAVIOR 2017 Rash ICD-782.1 Inactive Kylie Yokum MANAGER BEHAVIOR 07/25 Cyst ICD-706.2 Inactive Kylie Holt MANAGER BEHAVIOR 08/11 Unspecified fall, initial encounter ICD-E888.9 Inactive Kylie Holt MANAGER BEHAVIOR Eye pain, left ICD-379.91 Inactive Kylie Holt MANAGER BEHAVIOR Medication List Medication Instructions Start Date Stop Date Generic Name ND Status Provider Patient Instruction IMODIUM A-D 2 MG ORAL TABLET 1 tablet twice a day LOPERAMIDE HCL 83872949452 Active Kylie Holt MANAGER BEHAVIOR Active VOLTAREN 1 % TRANSDERMAL GEL apply q 6-8 hour to left arm as needed for pain DICLOFENAC SODIUM 30396764973 Active Kylie Holt APRN Active COQ10 100 MG ORAL CAPSULE 1 daily COENZYME Q10 262816 50808 Active LETY Nation Active VITAMIN D3 2000 UNIT ORAL CAPSULE Melaleuca-One daily CHOLECALCIFEROL 48074375721 Active Kylie Holt APRN Active PROBIOTIC DAILY ORAL CAPSULE Take one daily PROBIO TIC PRODUCT 29975356573 Active Kylie Holt APRN Active IRON 325 (65 Fe) MG ORAL TABLET 1 every other day FERROUS SULFATE 85134463863 No Longer Active Kylie Holt APRN Active FLORANEX ORAL PACKET 1 pack three times daily, for bowel health LACTOBACILLUS 74855091039 No Longer Active Kylie Holt APRN Active LOMOTIL 2.5-0.025 MG ORAL TABLET 1 tab by mouth prn 23/10/23 DIPHENOXYLATE-ATROPINE 09846917166 No Longer Active Kylie Lundum MANAGER BEHAVIOR Active MAGNESIUM GLUCONATE 250 MG ORAL TABLET 1 tab tid 23/10/23 MAGNESIUM GLUCONATE 91403450651 No Longer Active Kylie Lundum MANAGER BEHAVIOR Active CYANOCOBALAMIN 1000 MCG/ML INJECTION SOLUTION 1 injection ev ruben 2 weeks CYANOCOBALAMIN 03010404138 No Longer Active Kylie Lund um MANAGER BEHAVIOR Active ATENOLOL 25 MG ORAL TABLET 1/2 pill by mouth daily, fo r headaches, blood pressure ATENOLOL 35868173675 Active Kylie Escalonagabbioliver MANAGER BEHAVIOR Active PROPRANOLOL HCL 80 MG ORAL TABLET 1 tab tue. and thur. PROPRANOLOL HCL 94207965693 No Longer Active Hope Benavidez MD PhD A ctive VITAMIN D3 4000 IU 1 tab 3 times daily VITAMIN D3 4000 IU No Longer Active Hope Benavidez MD PhD Active BACTRIM DS 800-160 MG ORAL TABLET 1 pill by mouth twice claudio y, for UTI SULFAMETHOXAZOLE-TRIMETHOPRIM 72243452347 No Longer Active Hope Benavidez MD PhD Active PROLIA 60 MG/ML SUBCUTANEOUS SOLUTION 1 shot every 6 months for osteoprosis DENOSUMAB 24930582914 Active Hope Benavidez MD PhD Active CALCIUM + D + K 750-500-40 MG-UNT-MCG ORAL TABLET 1 tab by m outh twice daily CALCIUM-VITAMIN D-VITAMIN K 00991696473 Active Hope valdez MD PhD Active DAILY VALUE MULTIVITAMIN ORAL TABLET 1 tab by mouth twice daily 201 05/16/14 MULTIPLE VITAMIN 00388884800 Active Hope Benavidez MD PhD Acti ve FISH OIL 306 MG CAPS 1 tab by mouth three times daily OMEGA-3 FATTY ACIDS 27442394464 Active Hope Benavidez MD PhD Active LUTEIN 10 MG ORAL TABLET 1 tab daily LUTEIN 56174093 408 Active Hope Benavidez MD PhD Active TRIAMTERENE-HCTZ 37.5-25 MG ORAL TABLET 1 tab by mouth daily 10/22 TRIAMTERENE-HCTZ 48158710229 Active Kylie Holt APRN Active CYCLOBENZAPRINE HCL 10 MG ORAL TABLET 1 tablet by mout h three times daily as needed for headaches CYCLOBENZAPRINE HCL 43459913479 No Longer Active Adam Yates MD Active OMEPRAZOLE 20 MG ORAL CAPSULE DELAYED RELEASE 1 tablet by mo uth daily for GERD OMEPRAZOLE 50924908219 No Longer Active Adam Yates MD Active ZOFRAN 8 MG ORAL TABLET 1 tab by mouth every 12 hours prn 4 ONDANSETRON HCL 50583720151 No Longer Active Adam Yates MD Active PHENADOZ 25 MG RECTAL SUPPOSITORY 1 every 4 hrs. PRN 2 PROMETHAZINE HCL 39463567983 No Longer Active Adam Yates MD A ctive POTASSIUM CHLORIDE 20 MEQ ORAL PACKET by mouth twice a day prn 2 POTASSIUM CHLORIDE 66429991638 No Longer Active Adam Carpenter MD Active PROMETHAZINE HCL 25 MG ORAL TABLET 1 Q. 4 hr. PRN PROMETHAZINE HCL 47052071545 No Longer Active Adam Yates MD Active INNOPRAN XL 120 MG ORAL CAPSULE EXTENDED RELEASE 24 HO UR Take one by mouth daily PROPRANOLOL HCL SR BEADS 57731140788 No Longer Active Adam Yates MD Active FLAGYL 500 MG ORAL TABLET 1 pill by mouth three times daily, for diarrhea METRONIDAZOLE 41926574054 No Longer Active Hope landers MD PhD Active DYAZIDE 37.5-25 MG ORAL CAPSULE 1 qd TRIA MTERENE-HCTZ 84497953040 No Longer Active Hope Benavidez MD PhD Active PROZAC 20 MG ORAL CAPSULE 1 q d FLUOXETINE HCL 01226015371 No Longer Active Hope Benavidez MD PhD Active SIMVASTATIN 40 MG ORAL TABLET 1 qd SIMVAS TATIN 68455789741 No Longer Active Adam Yates MD Active MELOXICAM 15 MG ORAL TABLET 1 qd MELOXICAM 26801956403 No Longer Active Adam Yates MD Active EXCEDRIN EXTRA STRENGTH 250-250-65 MG ORAL TABLET 1-2 q6h AR N headache [id number] 94411055913 Active Hope Benavidez MD PhD Active FLAGYL 500 MG ORAL TABLET 1 qid METRONIDAZOL E 71119769321 No Longer Active Adam Yates MD Active LEVAQUIN 750 MG ORAL TABLET 1 qd LEVOFLOXAC IN 88430718780 No Longer Active Adam Yates MD Active ADULT ASPIRIN LOW STRENGTH 81 MG ORAL TABLET DISINTEGRATING 1 qd ASPIRIN 11199592141 Active Hope Benavidez MD PhD Active LEVAQUIN 750 MG ORAL TABLET 1 qd LEVAQUIN 750 MG ORAL TABLET 162688 LEVOFLOXACIN Inactive FLAGYL 500 MG ORAL TABLET 1 qid FLAGYL 500 MG ORAL TABLET 161429 METRONIDAZOLE Inactive MELOXICAM 15 MG ORAL TABLET 1 qd MELOXICAM 15 MG ORAL TABLET 917328 MELOXICAM Inactive SIMVASTATIN 40 MG ORAL TABLET 1 qd SIMVASTATIN 40 MG ORAL TABLET 142775 SIMVASTATIN Inactive PROZAC 20 MG ORAL CAPSULE 1 q d PROZAC 20 MG ORAL CAPSULE 504142 FLUOXETINE HCL Inactive DYAZIDE 37.5-25 MG ORAL CAPSULE 1 qd 5 DYAZIDE 37.5-25 MG ORAL CAPSULE 110998 TRIAMTERENE-HCTZ Inactive INNOPRAN XL 120 MG ORAL CAPSULE EXTENDED RELEASE 24 HO UR Take one by mouth daily INNOPRAN XL 120 MG ORAL CAPSULE EXTENDED RELEASE 24 HOUR PROPRANOLOL HCL SR BEADS Inactive PROMETHAZINE HCL 25 MG ORAL TABLET 1 Q. 4 hr. PRN 2013 PROMETHAZINE HCL 25 MG ORAL TABLET 788560 PROMETHAZINE HCL Inactive POTASSIUM CHLORIDE 20 MEQ ORAL PACKET by mouth twice a day prn 2 POTASSIUM CHLORIDE 20 MEQ ORAL PACKET 7954947 POTASSIUM CHLORIDE Inactive PHENADOZ 25 MG RECTAL SUPPOSITORY 1 every 4 hrs. PRN 2 PHENADOZ 25 MG RECTAL SUPPOSITORY 565393 PROMETHAZINE HCL Inactive ZOFRAN 8 MG ORAL TABLET 1 tab by mouth every 12 hours prn 4 ZOFRAN 8 MG ORAL TABLET 901661 ONDANSETRON HCL Inactive OMEPRAZOLE 20 MG ORAL CAPSULE DELAYED RELEASE [address] [facility] daily for GERD OMEPRAZOLE 20 MG ORAL CAPSULE DELAYED RELEASE 19 8051 OMEPRAZOLE Inactive CYCLOBENZAPRINE HCL 10 MG ORAL TABLET 1 tablet by mout h three times daily as needed for headaches CYCLOBENZAPRINE HCL 10 MG ORAL TABLET 720907 CYCLOBENZAPRINE HCL Inactive VITAMIN D3 4000 IU 1 tab 3 times daily VITAMIN D3 4000 IU Inactive PROPRANOLOL HCL 80 MG ORAL TABLET 1 tab tue. and thur. PROPRANOLOL HCL 80 MG ORAL TABLET 178880 PROPRANOLOL HCL Inacti ve CYANOCOBALAMIN 1000 MCG/ML INJECTION SOLUTION 1 injection ev ruben 2 weeks CYANOCOBALAMIN 1000 MCG/ML INJECTION SOLUTION 30 9594 CYANOCOBALAMIN Inactive MAGNESIUM GLUCONATE 250 MG ORAL TABLET 1 tab tid 23/10/23 MAGNESIUM GLUCONATE 250 MG ORAL TABLET 281870 MAGNESIUM GLUCONATE Inactive LOMOTIL 2.5-0.025 MG ORAL TABLET 1 tab by mouth prn 23/10/23 LOMOTIL 2.5-0.025 MG ORAL TABLET 1801281 DIPHENOXYLATE-ATROPINE Inac tive FLORANEX ORAL PACKET 1 pack three times daily, for bowel health FLORANEX ORAL PACKET 06032591948 LACTOBACILLUS Inactive IRON 325 (65 Fe) MG ORAL TABLET 1 every other day 2015 IRON 325 (65 Fe) MG ORAL TABLET 958669 FERROUS SULFATE Inactive FLAGYL 500 MG ORAL TABLET 1 pill by mouth three times daily, for diarrhea FLAGYL 500 MG ORAL TABLET 744003 METRONIDAZOLE I nactive BACTRIM DS 800-160 MG ORAL TABLET 1 pill by mouth twice claudio y, for UTI BACTRIM DS 800-160 MG ORAL TABLET 524529 SULFAMETHOXAZOLE-TRIMETHOPRIM Inactive Advance Directives Directive Description Start [...] ... - Chemistry sodium, serum 138 mmol/L 567-069 4376/12/15 potassium, serum 4.0 mmol/L 3.5-5.2 chloride, serum [...] - Chem istry sodium, serum 142 mmol/L 618-491 7513/04/19 carbon dioxide, venous blood 30.2 mmol/L 21.0-32 [...] mg/dL Encounters Code Encounter Date Provider Facility CPT-96128 [id number]-[id number] Vst-Est Level III 14:29:19 CDT Fiorella weston Polapari [facility] CPT-14512 Level 2 Est. Patient 14:58:26 CDT Kylie boyd [facility] CPT-41316 Level 3 Est. Patient 08:15:24 THERMAL CUTTER HELPER Kylie Yogabbi [facility] CPT-48755 Level 2 Est. Patient 14:27:16 THERMAL CUTTER HELPER Kylie Kevon [facility] CPT-63838 Level 3 Est. Patient 17:54:48 CDT Kylie Yogabbi [facility] CPT-14567 Level 3 Est. Patient 16:26:30 CDT Kina blackmon [facility] CPT-68339 Level 3 New Patient 16:22:01 THERMAL CUTTER HELPER Adam Yates MD [facility] CPT-03976 Level 4 Est. Patient 17:00:48 CDT Kylie Lund [facility] CPT-96634 Level 3 Est. Patient 13:15:54 CDT Kylie Lund [facility] CPT-98530 Level 3 Est. Patient 09:10:11 CDT Kylie Lund [facility] CPT-78782 Level 4 Est. Patient 12:08:30 THERMAL CUTTER HELPER Hope cohn MD PhD [facility] CPT-81955 Level 4 Est. Patient 19:08:42 THERMAL CUTTER HELPER Hope cohn MD PhD [facility] CPT-94093 Level 4 Est. Patient 20:04:51 CDT Hope cohn MD PhD [facility] CPT-74526 Level 3 New Patient 01:46:11 THERMAL CUTTER HELPER Hope landers MD PhD [facility] Procedures Code Procedure Name Date Entry Date Standard Desc ription CPT-G0439 [facility] Annual Wellness Exam 14:29:19 CDT CPT-13054 Venipuncture Draw Fee 10:59:04 CDT CPT-60876 CMP - LAB USE ONLY 10:59:04 CDT CPT-29153 CBC with Diff - LAB USE ONLY 10:59:03 CDT 2 CPT-J0897 Prolia 60 mg 15:46:54 THERMAL CUTTER HELPER CPT-81946 Abx/Therapy Injection 15:46:54 THERMAL CUTTER HELPER CPT-43196 Microalbumin - LAB USE ONLY 09:41:32 THERMAL CUTTER HELPER 20 23/01/15 CPT-13097 Free T4 - LAB USE ONLY 09:41:32 THERMAL CUTTER HELPER CPT-68277 TSH - LAB USE ONLY 09:41:32 THERMAL CUTTER HELPER CPT-39961 BMP - LAB USE ONLY 09:41:32 THERMAL CUTTER HELPER CPT-04889 Venipuncture Draw Fee 09:41:32 THERMAL CUTTER HELPER CPT-92985 First Vx - Ix admin for Medicare patients 11:19:30 CDT CPT-90853 Fluzone High-Dose Intramuscular Suspension 12/07 11:19:30 CDT CPT-J0897 Prolia 60 mg 14:55:42 CDT CPT-01231 Abx/Therapy Injection 14:55:42 CDT CPT-62098 Bone Density - XRAY USE ONLY 10:27:12 CDT 2 CPT-G0439 [facility] Subsequent Annual Wellness Exam 17:54:53 CDT CPT-71028 Foot, left, comp min 3V - XRAY USE ONLY 12:22:49 CDT CPT-G0009 Administration of Pneumococcal Vaccine 3 12:18:00 CDT CPT-62358 Pneumovax 23 Injection Injectable 25 MCG /0.5ML 12:18:00 CDT CPT-J0897 Prolia 60 mg 14:14:16 THERMAL CUTTER HELPER CPT-71459 Abx/Therapy Injection 14:14:15 THERMAL CUTTER HELPER CPT-38871 Lipid - LAB USE ONLY 10:01:52 THERMAL CUTTER HELPER 2 CPT-17523 Calcium - LAB USE ONLY 10:01:51 THERMAL CUTTER HELPER CPT-17242 Venipuncture Draw Fee 10:01:51 THERMAL CUTTER HELPER CPT-LR Lesion Removal 16:22:01 THERMAL CUTTER HELPER CPT-56961 TSH - LAB USE ONLY 14:26:02 CDT CPT-38595 CMP - LAB USE ONLY 14:26:01 CDT CPT-96074 CBC with Diff - LAB USE ONLY 14:26:01 CDT 2 CPT-40630 Venipuncture Draw Fee 14:26:01 CDT CPT-04406 First Vx - Ix admin for Medicare patients 13:27:08 CDT CPT-16853 Fluzone High-Dose Intramuscular Suspension 11/26 13:27:08 CDT CPT-G0438 Initial Annual Wellness Exam 14:19:57 CD T CPT-G0009 Administration of Pneumococcal Vaccine 9 11:36:25 CDT CPT-42813 Prevnar 13 Intramuscular Suspension 1 1:36:25 CDT CPT-98782 Prevnar 13 Intramuscular Suspension 1 0:40:58 CDT CPT-J0897 Prolia 60 mg 10:37:16 CDT CPT-87304 Abx/Therapy Injection 10:37:16 CDT CPT-J0897 Prolia 60 mg 16:09:34 THERMAL CUTTER HELPER CPT-J0897 Prolia 60 mg 11:10:35 THERMAL CUTTER HELPER CPT-99925 Abx/Therapy Injection 11:10:35 THERMAL CUTTER HELPER CPT-000 Give Appropriate Flu Vaccine 17:01:15 THERMAL CUTTER HELPER 2 CPT-59744 Fluzone High Dose (65+) 15:03:08 THERMAL CUTTER HELPER 02/15 CPT-31898 Immunization Single Admin 15:03:08 THERMAL CUTTER HELPER 2014 CPT-OV Office Visit 15:58:06 CDT CPT-J0897 Prolia 60 mg 08:45:38 CDT CPT-85070 Abx/Therapy Injection 08:45:38 CDT CPT-J3420 Vitamin B12 1000mcg (Cyanocobalamin) 09:26:20 THERMAL CUTTER HELPER CPT-93798 Abx/Therapy Injection 09:26:20 THERMAL CUTTER HELPER CPT-J3420 Vitamin B12 1000mcg (Cyanocobalamin) 09:44:40 THERMAL CUTTER HELPER CPT-28611 Abx/Therapy Injection 09:44:40 THERMAL CUTTER HELPER CPT-J3420 Vitamin B12 1000mcg (Cyanocobalamin) 09:15:54 THERMAL CUTTER HELPER CPT-31566 Abx/Therapy Injection 09:15:54 THERMAL CUTTER HELPER CPT-J3420 Vitamin B12 1000mcg (Cyanocobalamin) 09:46:44 THERMAL CUTTER HELPER CPT-90583 Abx/Therapy Injection 09:46:44 THERMAL CUTTER HELPER CPT-J3420 Vitamin B12 1000mcg (Cyanocobalamin) 09:47:34 THERMAL CUTTER HELPER CPT-29681 Abx/Therapy Injection 09:47:34 THERMAL CUTTER HELPER CPT-J3420 Vitamin B12 1000mcg (Cyanocobalamin) 14:35:50 THERMAL CUTTER HELPER CPT-J3420 Vitamin B12 1000mcg (Cyanocobalamin) 09:25:05 THERMAL CUTTER HELPER CPT-30027 Abx/Therapy Injection 09:25:05 THERMAL CUTTER HELPER CPT-G0008 Administration of Influenza Virus Vaccine 13:36:47 CDT CPT-58526 Fluzone High-Dose Intramuscular Suspension 11/15 13:36:47 CDT CPT-J0897 Prolia 60 mg 08:50:41 CDT CPT-40227 Abx/Therapy Injection 08:50:41 CDT CPT-55894 Bone Density 12:06:12 CDT CPT-19343 Bone Density 08:54:40 CDT CPT-OV Office Visit 15:37:02 CDT CPT-13031 Postop F/U Visit 15:47:49 CDT CPT-13200 Postop F/U Visit 15:21:02 CDT CPT-TCM Transitional Care Mgmt-High 07:52:27 CDT 20 20/06/01 CPT-27444 Venipuncture Draw Fee 13:51:18 CDT CPT-16615 Venipuncture Draw Fee 10:14:55 THERMAL CUTTER HELPER CPT-71165 Venipuncture Draw Fee 13:39:45 THERMAL CUTTER HELPER CPT-OV Office Visit 15:11:22 THERMAL CUTTER HELPER CPT-47037 Venipuncture Draw Fee 09:20:49 THERMAL CUTTER HELPER CPT-00097 Venipuncture Draw Fee 16:52:15 THERMAL CUTTER HELPER CPT-30369 Venipuncture Draw Fee 10:37:24 THERMAL CUTTER HELPER CPT-90887 Venipuncture Draw Fee 08:21:21 THERMAL CUTTER HELPER CPT-78979 Venipuncture Draw Fee 08:30:20 THERMAL CUTTER HELPER CPT-82000 Venipuncture Draw Fee 14:53:21 THERMAL CUTTER HELPER CPT-80481 Venipuncture Draw Fee 09:40:56 THERMAL CUTTER HELPER CPT-25619 Venipuncture Draw Fee 10:30:47 THERMAL CUTTER HELPER CPT-46118 Venipuncture Draw Fee 10:46:17 THERMAL CUTTER HELPER CPT-34754 Venipuncture Draw Fee 11:12:45 THERMAL CUTTER HELPER CPT-90959 Venipuncture Draw Fee 09:53:33 THERMAL CUTTER HELPER CPT-74989 Venipuncture Draw Fee 11:53:51 THERMAL CUTTER HELPER CPT-70318 Venipuncture Draw Fee 10:33:50 THERMAL CUTTER HELPER CPT-61534 Venipuncture Draw Fee 10:05:01 THERMAL CUTTER HELPER 2013/12/ 03 CPT-31414 Venipuncture Draw Fee 14:32:52 THERMAL CUTTER HELPER CPT-00832 Venipuncture Draw Fee 09:46:13 THERMAL CUTTER HELPER CPT-21391 Venipuncture Draw Fee 11:34:27 THERMAL CUTTER HELPER CPT-69829 Venipuncture Draw Fee 13:17:16 THERMAL CUTTER HELPER CPT-72924 Venipuncture Draw Fee 12:05:39 CDT CPT-81644 Venipuncture Draw Fee 12:49:12 CDT CPT-87164 Venipuncture Draw Fee 12:37:18 CDT CPT-14340 Venipuncture Draw Fee 10:57:11 CDT CPT-02881 Venipuncture Draw Fee 13:47:40 CDT CPT-86242 Venipuncture Draw Fee 10:02:17 CDT CPT-97244 TB Tubersol 17:32:32 CDT CPT-OV Office Visit 16:21:53 CDT CPT-OV Office Visit 15:49:22 CDT CPT-OV Office Visit 17:16:31 CDT CPT-OV Office Visit 10:43:31 CDT
--- OUTSIDE RECORDS SUMMARY | 2019-02-09 12:14 | XMS REPORT | Clinical Summary ---
Author Author Admin, Florecita Munoz Organization [facility] Address Unknown Phone Unavailable Allergies, Adverse Reactions, [...] cyst, scalp 706.2 Resolved Kylie Yokum [employer] Sebaceous cyst Cervical lymphadenopathy, anterior, left 785.6 Resolv ed Kylie Yokum [employer] Enlargement of lymph nodes Need for prophylactic vaccination and inoculation against in fluenza V04.81 Resolved Adam Yates MD Need for prophylactic vaccination and inoculation against influenza Preventive health care V70.0 Resolved Kylie Yoku m [employer] Routine general medical examination at a health care facility Thyroid nodule, left 241.0 Active Kylie Yokum A PRN Nontoxic uninodular goiter Screening mammogram V76.12 Resolved Kylie Yokum A PRN Other screening mammogram Mandy 706.2 Resolved Kylie Yokum [employer] Sebaceous cyst Colon cancer, ascending 153.6 Resolved Kylie Yok um [employer] Malignant neoplasm of ascending colon Foot pain, left 729.5 Resolved Kylie Yokum [employer] Pain in limb Splinter 919.6 Resolved Kylie Yokum [employer] Superficial foreign body (splinter) of other, multiple, and unspecified sites, without major open wound and without mention of infection Rash 782.1 Resolved Kylie Yokum [employer] Rash and other nonspecific skin eruption Cyst 706.2 Resolved Kylie Yokum [employer] Sebaceous cyst Body Mass Index 23.0-23.9 Adult Active Kylie Yokum [employer] Body Mass Index between 19-24, adult Unspecified fall, initial encounter E888.9 Inactive Kylieshubham Holt [employer] Unspecified fall Eye pain, left 379.91 Inactive Kylie Yokum [employer] Pain in or around eye Pharyngitis, acute 074.0 Active Kylieshubham Lundum APR N Herpangina ABDOMINAL PAIN, RIGHT LOWER QUADRANT ICD-789.03 Inactive Kina Joshua [employer] ADENOCARCINOMA, COLON, 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 Dick Yates MD ABDOMINAL PAIN, GENERALIZED ICD-789.07 Inactive Hope Benavidez MD PhD FEVER UNSPECIFIED ICD-780.60 Inactive Hope cohn MD PhD UNSPECIFIED VENOUS INSUFFICIENCY ICD-459.81 Cullom ctive Adam Yates MD ADENOCARCINOMA, 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 Inac tive Hope Benavidez MD PhD Hyperkalemia ICD-276.7 Inactive Hope Benavidez MD PhD GERD ICD-530.81 Inactive Kylie Lundum [employer] 2015 Health maintenance exam ICD-V70.0 Bam Yates MD Anemia ICD-285.9 Inactive Kylie Polakum [employer] 07/24 Hypomagnesemia ICD-275.2 Inactive Kylie Yokum [employer] Weakness ICD-780.79 Inactive Hope Benavidez MD P [...] scalp ICD-706.2 Inactive Tracy hi Yokum [employer] Cervical lymphadenopathy, anterior, left ICD-785.6 Inactive Kylie Yokum [employer] Need for prophylactic vaccination and inoculation against in fluenza ICD-V04.81 Inactive Adam Yates MD Preventive health care ICD-V70.0 Inactive Ka thi Yokum [employer] Screening mammogram ICD-V76.12 Inactive Kylie Yokum [employer] Mandy ICD-706.2 Inactive Kylie Yokum [employer] 07/20 Colon cancer, ascending ICD-153.6 Inactive K athi Yokum [employer] Foot pain, left ICD-729.5 Inactive Kylie Yokum [employer] Splinter ICD-919.6 Inactive Kylie Yokum [employer] 2017 Rash ICD-782.1 Inactive Kylie Yokum [employer] 07/25 Cyst ICD-706.2 Inactive Kylie Holt [employer] 08/11 Unspecified fall, initial encounter ICD-E888.9 Inactive Kylie Holt [employer] Eye pain, left ICD-379.91 Inactive Kylie Holt [employer] Medication List Medication Instructions Start Date Stop Date Generic Name ND Status Provider Patient Instruction IMODIUM A-D 2 MG ORAL TABLET 1 tablet twice a day LOPERAMIDE HCL 86975370592 Active Kylie Holt AMY Active VOLTAREN 1 % TRANSDERMAL GEL apply q 6-8 hour to left arm as needed for pain DICLOFENAC SODIUM 13161055619 Active Kylie Holt APRN Active COQ10 100 MG ORAL CAPSULE 1 daily COENZYME Q10 681779 79576 Active LETY Nation Active VITAMIN D3 2000 UNIT ORAL CAPSULE Melaleuca-One daily CHOLECALCIFEROL 83201885166 Active Kylie Holt AMY Active PROBIOTIC DAILY ORAL CAPSULE Take one daily PROBIO TIC PRODUCT 74070594782 Active Kylie Holt AMY Active IRON 325 (65 Fe) MG ORAL TABLET 1 every other day FERROUS SULFATE 05535013867 No Longer Active Kylie Holt APRN Active FLORANEX ORAL PACKET 1 pack three times daily, for bowel health LACTOBACILLUS 59085715677 No Longer Active Kylie Holt AMY Active LOMOTIL 2.5-0.025 MG ORAL TABLET 1 tab by mouth prn 23/10/23 DIPHENOXYLATE-ATROPINE 20213513782 No Longer Active Kylie Lundum [employer] Active MAGNESIUM GLUCONATE 250 MG ORAL TABLET 1 tab tid 23/10/23 MAGNESIUM GLUCONATE 73153452095 No Longer Active Kylie Lundum [employer] Active CYANOCOBALAMIN 1000 MCG/ML INJECTION SOLUTION 1 injection ev ruben 2 weeks CYANOCOBALAMIN 01901231045 No Longer Active Kylie Yok um [employer] Active ATENOLOL 25 MG ORAL TABLET 1/2 pill by mouth daily, fo r headaches, blood pressure ATENOLOL 94487171489 Active Kylie Holt [employer] Active PROPRANOLOL HCL 80 MG ORAL TABLET 1 tab tue. and thur. PROPRANOLOL HCL 64290574477 No Longer Active Hope Benavidez MD PhD A ctive VITAMIN D3 4000 IU 1 tab 3 times daily VITAMIN D3 4000 IU No Longer Active Hope Benavidez MD PhD Active BACTRIM DS 800-160 MG ORAL TABLET 1 pill by mouth twice claudio y, for UTI SULFAMETHOXAZOLE-TRIMETHOPRIM 17577967461 No Longer Active Hope Benavidez MD PhD Active PROLIA 60 MG/ML SUBCUTANEOUS SOLUTION 1 shot every 6 months for osteoprosis DENOSUMAB 32030028296 Active Hope Benavidez MD PhD Active CALCIUM + D + K 750-500-40 MG-UNT-MCG ORAL TABLET 1 tab by m out twice daily CALCIUM-VITAMIN D-VITAMIN K 25602051760 Active Hope valdez MD PhD Active DAILY VALUE MULTIVITAMIN ORAL TABLET 1 tab by mouth twice daily 201 05/16/14 MULTIPLE VITAMIN 19301746479 Active Hope Benavidez MD PhD Acti ve FISH OIL 306 MG CAPS 1 tab by mouth three times daily OMEGA-3 FATTY ACIDS 10618706985 Active Hope Benavidez MD PhD Active LUTEIN 10 MG ORAL TABLET 1 tab daily LUTEIN 53274802 408 Active Hope Benavidez MD PhD Active TRIAMTERENE-HCTZ 37.5-25 MG ORAL TABLET 1 tab by mouth daily 10/22 TRIAMTERENE-HCTZ 74439744345 Active Kylie Escalonagabbioliver [employer] Active CYCLOBENZAPRINE HCL 10 MG ORAL TABLET 1 tablet by mout h three times daily as needed for headaches CYCLOBENZAPRINE HCL 91143843486 No Longer Active Adam Yates MD Active OMEPRAZOLE 20 MG ORAL CAPSULE DELAYED RELEASE 1 tablet by mo uth daily for GERD OMEPRAZOLE 36426025862 No Longer Active Adam Yates MD Active ZOFRAN 8 MG ORAL TABLET 1 tab by mouth every 12 hours prn 4 ONDANSETRON HCL 57750304734 No Longer Active Adam Yates MD Active PHENADOZ 25 MG RECTAL SUPPOSITORY 1 every 4 hrs. PRN 2 PROMETHAZINE HCL 06843368018 No Longer Active Adam Yates MD A ctive POTASSIUM CHLORIDE 20 MEQ ORAL PACKET by mouth twice a day prn 2 POTASSIUM CHLORIDE 82732578832 No Longer Active Aadm Carpenter MD Active PROMETHAZINE HCL 25 MG ORAL TABLET 1 Q. 4 hr. PRN PROMETHAZINE HCL 11805742697 No Longer Active Adam Yates MD Active INNOPRAN XL 120 MG ORAL CAPSULE EXTENDED RELEASE 24 HO UR Take one by mouth daily PROPRANOLOL HCL SR BEADS 27919719309 No Longer Active Adam Yates MD Active FLAGYL 500 MG ORAL TABLET 1 pill by mouth three times daily, for diarrhea METRONIDAZOLE 86959481286 No Longer Active Hope landers MD PhD Active DYAZIDE 37.5-25 MG ORAL CAPSULE 1 qd TRIA MTERENE-HCTZ 39652404111 No Longer Active Hope Benavidez MD PhD Active PROZAC 20 MG ORAL CAPSULE 1 q d FLUOXETINE HCL 24306279259 No Longer Active Hope Benavidez MD PhD Active SIMVASTATIN 40 MG ORAL TABLET 1 qd SIMVAS TATIN 46193691990 No Longer Active Adam Yates MD Active MELOXICAM 15 MG ORAL TABLET 1 qd MELOXICAM 40657891094 No Longer Active Adam Yates MD Active EXCEDRIN EXTRA STRENGTH 250-250-65 MG ORAL TABLET 1-2 q6h WI N headache [id number] 68810844133 Active Hope Benavidez MD PhD Active FLAGYL 500 MG ORAL TABLET 1 qid METRONIDAZOL E 40206711770 No Longer Active Adam Yates MD Active LEVAQUIN 750 MG ORAL TABLET 1 qd LEVOFLOXAC IN 66998929882 No Longer Active Adam Yates MD Active ADULT ASPIRIN LOW STRENGTH 81 MG ORAL TABLET DISINTEGRATING 1 qd ASPIRIN 28280345724 Active Hope Benavidez MD PhD Active LEVAQUIN 750 MG ORAL TABLET 1 qd LEVAQUIN 750 MG ORAL TABLET 736268 LEVOFLOXACIN Inactive FLAGYL 500 MG ORAL TABLET 1 qid FLAGYL 500 MG ORAL TABLET 894477 METRONIDAZOLE Inactive MELOXICAM 15 MG ORAL TABLET 1 qd MELOXICAM 15 MG ORAL TABLET 102346 MELOXICAM Inactive SIMVASTATIN 40 MG ORAL TABLET 1 qd SIMVASTATIN 40 MG ORAL TABLET 891517 SIMVASTATIN Inactive PROZAC 20 MG ORAL CAPSULE 1 q d PROZAC 20 MG ORAL CAPSULE 042901 FLUOXETINE HCL Inactive DYAZIDE 37.5-25 MG ORAL CAPSULE 1 qd 5 DYAZIDE 37.5-25 MG ORAL CAPSULE 852155 TRIAMTERENE-HCTZ Inactive INNOPRAN XL 120 MG ORAL CAPSULE EXTENDED RELEASE 24 HO UR Take one by mouth daily INNOPRAN XL 120 MG ORAL CAPSULE EXTENDED RELEASE 24 HOUR PROPRANOLOL HCL SR BEADS Inactive PROMETHAZINE HCL 25 MG ORAL TABLET 1 Q. 4 hr. PRN 2013 PROMETHAZINE HCL 25 MG ORAL TABLET 337096 PROMETHAZINE HCL Inactive POTASSIUM CHLORIDE 20 MEQ ORAL PACKET by mouth twice a day prn 2 POTASSIUM CHLORIDE 20 MEQ ORAL PACKET 3025075 POTASSIUM CHLORIDE Inactive PHENADOZ 25 MG RECTAL SUPPOSITORY 1 every 4 hrs. PRN 2 PHENADOZ 25 MG RECTAL SUPPOSITORY 776033 PROMETHAZINE HCL Inactive ZOFRAN 8 MG ORAL TABLET 1 tab by mouth every 12 hours prn 4 ZOFRAN 8 MG ORAL TABLET 163587 ONDANSETRON HCL Inactive OMEPRAZOLE 20 MG ORAL CAPSULE DELAYED RELEASE 1 tablet by [facility] daily for GERD OMEPRAZOLE 20 MG ORAL CAPSULE DELAYED RELEASE 19 8051 OMEPRAZOLE Inactive CYCLOBENZAPRINE HCL 10 MG ORAL TABLET 1 tablet by mout h three times daily as needed for headaches CYCLOBENZAPRINE HCL 10 MG ORAL TABLET 747862 CYCLOBENZAPRINE HCL Inactive VITAMIN D3 4000 IU 1 tab 3 times daily VITAMIN D3 4000 IU Inactive PROPRANOLOL HCL 80 MG ORAL TABLET 1 tab tue. and thur. PROPRANOLOL HCL 80 MG ORAL TABLET 810028 PROPRANOLOL HCL Inacti ve CYANOCOBALAMIN 1000 MCG/ML INJECTION SOLUTION 1 injection ev ruben 2 weeks CYANOCOBALAMIN 1000 MCG/ML INJECTION SOLUTION 30 9594 CYANOCOBALAMIN Inactive MAGNESIUM GLUCONATE 250 MG ORAL TABLET 1 tab tid 23/10/23 MAGNESIUM GLUCONATE 250 MG ORAL TABLET 489508 MAGNESIUM GLUCONATE Inactive LOMOTIL 2.5-0.025 MG ORAL TABLET 1 tab by mouth prn 23/10/23 LOMOTIL 2.5-0.025 MG ORAL TABLET 1146875 DIPHENOXYLATE-ATROPINE Inac tive FLORANEX ORAL PACKET 1 pack three times daily, for bowel health FLORANEX ORAL PACKET 40818302044 LACTOBACILLUS Inactive IRON 325 (65 Fe) MG ORAL TABLET 1 every other day 2015 IRON 325 (65 Fe) MG ORAL TABLET 418984 FERROUS SULFATE Inactive FLAGYL 500 MG ORAL TABLET 1 pill by mouth three times daily, for diarrhea FLAGYL 500 MG ORAL TABLET 290502 METRONIDAZOLE I nactive BACTRIM DS 800-160 MG ORAL TABLET 1 pill by mouth twice claudio y, for UTI BACTRIM DS 800-160 MG ORAL TABLET 609690 SULFAMETHOXAZOLE-TRIMETHOPRIM Inactive Advance Directives Directive Description Start [...] ... - Chemistry sodium, serum 138 mmol/L 882-963 8013/12/15 potassium, serum 4.0 mmol/L 3.5-5.2 chloride, serum [...] - Chem istry sodium, serum 142 mmol/L 101-401 6443/04/19 carbon dioxide, venous blood 30.2 mmol/L 21.0-32 [...] mg/dL Encounters Code Encounter Date Provider Facility CPT-21959 [id number] Vst-Est Level III 14:29:19 CDT Fiorella Lundoliver Formerly named [facility] [place] CPT-18201 Level 2 Est. Patient 14:58:26 CDT Kylie Lund [facility] [place] CPT-64284 Level 3 Est. Patient 08:15:24 [employer]PIECE CHOPPER Kylie Kevon [facility] [place] CPT-75557 Level 2 Est. Patient 14:27:16 [employer]PIECE [employer]PER Kylie Kevon [facility] [place] CPT-14423 Level 3 Est. Patient 17:54:48 CDT Kylie Kevon [facility] [place] CPT-68677 Level 3 Est. Patient 16:26:30 CDT Kina blackmon Formerly named [facility] CPT-29623 Level 3 New Patient 16:22:01 [employer]PIECE [employer]OPPER Adam Yates MD [facility] CPT-82771 Level 4 Est. Patient 17:00:48 CDT Kylie Lund [facility] [place] CPT-37417 Level 3 Est. Patient 13:15:54 CDT Kylie Lund [facility] CPT-54458 Level 3 Est. Patient 09:10:11 CDT Kylie Lund [facility] CPT-82182 Level 4 Est. Patient 12:08:30 TOPPIECE CHOPPER Hope cohn MD PhD [facility] CPT-04887 Level 4 Est. Patient 19:08:42 [employer]PIECE CHOPPER Hope cohn MD PhD [facility] CPT-74564 Level 4 Est. Patient 20:04:51 CDT Hope cohn MD PhD [facility] CPT-54956 Level 3 New Patient 01:46:11 [employer]PIECE [employer]PER Hope landers MD PhD [facility] Procedures Code Procedure Name Date Entry Date Standard Desc ription CPT-G0439 [facility] Annual Wellness Exam 14:29:19 CDT CPT-84345 Venipuncture Draw Fee 10:59:04 CDT CPT-68734 CMP - LAB USE ONLY 10:59:04 CDT CPT-73439 CBC with Diff - LAB USE ONLY 10:59:03 CDT 2 CPT-J0897 Prolia 60 mg 15:46:54 [employer]PIECE CHOPPER CPT-57658 Abx/Therapy Injection 15:46:54 [employer]PIECE CHOPPER CPT-40812 Microalbumin - LAB USE ONLY 09:41:32 TOPPIECE CHOPPER 20 23/01/15 CPT-40819 Free T4 - LAB USE ONLY 09:41:32 TOPPIECE CHOPPER CPT-39753 TSH - LAB USE ONLY 09:41:32 [employer]PIECE CHOPPER CPT-96925 BMP - LAB USE ONLY 09:41:32 [employer]PIECE CHOPPER CPT-58663 Venipuncture Draw Fee 09:41:32 TOPPIECE CHOPPER CPT-59761 First Vx - Ix admin for Medicare patients 11:19:30 CDT CPT-75455 Fluzone High-Dose Intramuscular Suspension 12/07 11:19:30 CDT CPT-J0897 Prolia 60 mg 14:55:42 CDT CPT-94077 Abx/Therapy Injection 14:55:42 CDT CPT-91919 Bone Density - XRAY USE ONLY 10:27:12 CDT 2 CPT-G0439 [facility] Subsequent Annual Wellness Exam 17:54:53 CDT CPT-73696 Foot, left, comp min 3V - XRAY USE ONLY 12:22:49 CDT CPT-G0009 Administration of Pneumococcal Vaccine 3 12:18:00 CDT CPT-19975 Pneumovax 23 Injection Injectable 25 MCG /0.5ML 12:18:00 CDT CPT-J0897 Prolia 60 mg 14:14:16 TOPPIECE CHOPPER CPT-19842 Abx/Therapy Injection 14:14:15 [employer]PIECE CHOPPER CPT-86098 Lipid - LAB USE ONLY 10:01:52 TOPPIECE CHOPPER 2 CPT-26098 Calcium - LAB USE ONLY 10:01:51 [employer]PIECE CHOPPER CPT-83020 Venipuncture Draw Fee 10:01:51 TOPPIECE CHOPPER CPT-LR Lesion Removal 16:22:01 TOPPIECE CHOPPER CPT-48279 TSH - LAB USE ONLY 14:26:02 CDT CPT-37320 CMP - LAB USE ONLY 14:26:01 CDT CPT-55669 CBC with Diff - LAB USE ONLY 14:26:01 CDT 2 CPT-78310 Venipuncture Draw Fee 14:26:01 CDT CPT-08912 First Vx - Ix admin for Medicare patients 13:27:08 CDT CPT-00315 Fluzone High-Dose Intramuscular Suspension 11/26 13:27:08 CDT CPT-G0438 Initial Annual Wellness Exam 14:19:57 CD T CPT-G0009 Administration of Pneumococcal Vaccine 9 11:36:25 CDT CPT-82719 Prevnar 13 Intramuscular Suspension 1 1:36:25 CDT CPT-23466 Prevnar 13 Intramuscular Suspension 1 0:40:58 CDT CPT-J0897 Prolia 60 mg 10:37:16 CDT CPT-01581 Abx/Therapy Injection 10:37:16 CDT CPT-J0897 Prolia 60 mg 16:09:34 TOPPIECE CHOPPER CPT-J0897 Prolia 60 mg 11:10:35 [employer]PIECE CHOPPER CPT-97264 Abx/Therapy Injection 11:10:35 TOPPIECE CHOPPER CPT-000 Give Appropriate Flu Vaccine 17:01:15 TOPPIECE CHOPPER 2 CPT-07188 Fluzone High Dose (65+) 15:03:08 TOPPIECE CHOPPER 02/15 CPT-00740 Immunization Single Admin 15:03:08 TOPPIECE CHOPPER 2014 CPT-OV Office Visit 15:58:06 CDT CPT-J0897 Prolia 60 mg 08:45:38 CDT CPT-97115 Abx/Therapy Injection 08:45:38 CDT CPT-J3420 Vitamin B12 1000mcg (Cyanocobalamin) 09:26:20 TOPPIECE CHOPPER CPT-32829 Abx/Therapy Injection 09:26:20 TOPPIECE CHOPPER CPT-J3420 Vitamin B12 1000mcg (Cyanocobalamin) 09:44:40 TOPPIECE CHOPPER CPT-71176 Abx/Therapy Injection 09:44:40 TOPPIECE CHOPPER CPT-J3420 Vitamin B12 1000mcg (Cyanocobalamin) 09:15:54 TOPPIECE CHOPPER CPT-13497 Abx/Therapy Injection 09:15:54 TOPPIECE CHOPPER CPT-J3420 Vitamin B12 1000mcg (Cyanocobalamin) 09:46:44 TOPPIECE CHOPPER CPT-03948 Abx/Therapy Injection 09:46:44 TOPPIECE CHOPPER CPT-J3420 Vitamin B12 1000mcg (Cyanocobalamin) 09:47:34 TOPPIECE CHOPPER CPT-89177 Abx/Therapy Injection 09:47:34 TOPPIECE CHOPPER CPT-J3420 Vitamin B12 1000mcg (Cyanocobalamin) 14:35:50 TOPPIECE CHOPPER CPT-J3420 Vitamin B12 1000mcg (Cyanocobalamin) 09:25:05 TOPPIECE CHOPPER CPT-78799 Abx/Therapy Injection 09:25:05 TOPPIECE CHOPPER CPT-G0008 Administration of Influenza Virus Vaccine 13:36:47 CDT CPT-40038 Fluzone High-Dose Intramuscular Suspension 11/15 13:36:47 CDT CPT-J0897 Prolia 60 mg 08:50:41 CDT CPT-45221 Abx/Therapy Injection 08:50:41 CDT CPT-38136 Bone Density 12:06:12 CDT CPT-42061 Bone Density 08:54:40 CDT CPT-OV Office Visit 15:37:02 CDT CPT-85156 Postop F/U Visit 15:47:49 CDT CPT-35499 Postop F/U Visit 15:21:02 CDT CPT-TCMH Transitional Care Mgmt-High 07:52:27 CDT 20 20/06/01 CPT-59857 Venipuncture Draw Fee 13:51:18 CDT CPT-30436 Venipuncture Draw Fee 10:14:55 [employer]PIECE CHOPPER CPT-44488 Venipuncture Draw Fee 13:39:45 TOPPIECE CHOPPER CPT-OV Office Visit 15:11:22 TOPPIECE CHOPPER CPT-79196 Venipuncture Draw Fee 09:20:49 TOPPIECE CHOPPER CPT-09712 Venipuncture Draw Fee 16:52:15 TOPPIECE CHOPPER CPT-25583 Venipuncture Draw Fee 10:37:24 TOPPIECE CHOPPER CPT-32020 Venipuncture Draw Fee 08:21:21 TOPPIECE CHOPPER CPT-27939 Venipuncture Draw Fee 08:30:20 TOPPIECE CHOPPER CPT-26522 Venipuncture Draw Fee 14:53:21 TOPPIECE CHOPPER CPT-19103 Venipuncture Draw Fee 09:40:56 TOPPIECE CHOPPER CPT-30750 Venipuncture Draw Fee 10:30:47 TOPPIECE CHOPPER CPT-95602 Venipuncture Draw Fee 10:46:17 TOPPIECE CHOPPER CPT-90033 Venipuncture Draw Fee 11:12:45 TOPPIECE CHOPPER CPT-34417 Venipuncture Draw Fee 09:53:33 TOPPIECE CHOPPER CPT-63845 Venipuncture Draw Fee 11:53:51 TOPPIECE CHOPPER CPT-07768 Venipuncture Draw Fee 10:33:50 TOPPIECE CHOPPER CPT-90507 Venipuncture Draw Fee 10:05:01 TOPPIECE CHOPPER CPT-83608 Venipuncture Draw Fee 14:32:52 TOPPIECE CHOPPER CPT-79535 Venipuncture Draw Fee 09:46:13 TOPPIECE CHOPPER CPT-67062 Venipuncture Draw Fee 11:34:27 TOPPIECE CHOPPER CPT-38431 Venipuncture Draw Fee 13:17:16 TOPPIECE CHOPPER CPT-90418 Venipuncture Draw Fee 12:05:39 CDT CPT-18313 Venipuncture Draw Fee 12:49:12 CDT CPT-69096 Venipuncture Draw Fee 12:37:18 CDT CPT-95360 Venipuncture Draw Fee 10:57:11 CDT CPT-48307 Venipuncture Draw Fee 13:47:40 CDT CPT-55484 Venipuncture Draw Fee 10:02:17 CDT CPT-96816 TB Tubersol 17:32:32 CDT CPT-OV Office Visit 16:21:53 CDT CPT-OV Office Visit 15:49:22 CDT CPT-OV Office Visit 17:16:31 CDT CPT-OV Office Visit 10:43:31 CDT
--- OUTSIDE RECORDS SUMMARY | 2019-02-09 12:15 | XMS REPORT | Clinical Summary ---
Author Author Renaldo, Florecita Munoz Organization [facility] Address Unknown Phone Unavailable Allergies, Adverse Reactions, [...] PhD Hyperpotassemia GERD 530.81 Resolved Kylie Yokum KETTLE OPERATOR Esophageal reflux Health maintenance exam V70.0 Resolved Adolfo Yates MD Routine general medical examination at a health care facility Anemia 285.9 Resolved Kylie Yanet KETTLE OPERATOR Anemia, unspecified Personal history of malignant neoplasm of large intestine V10.05 Active Adam Yates MD Personal history of malignant neoplasm of large intestine Hypomagnesemia 275.2 Resolved Kylie Yanet KETTLE OPERATOR Disorders of magnesium metabolism Weakness 780.79 [...] Sebaceous cyst, scalp 706.2 Resolved Kylie Yokum KETTLE OPERATOR Sebaceous cyst Cervical lymphadenopathy, anterior, left 785.6 Resolv ed Kylie Yokum KETTLE OPERATOR Enlargement of lymph nodes Need for prophylactic vaccination and inoculation against in fluenza V04.81 Resolved Adam Yates MD Need for prophylactic vaccination and inoculation against influenza Preventive health care V70.0 Resolved Kylie Escalonaku m KETTLE OPERATOR Routine general medical examination at a health care facility Thyroid nodule, left 241.0 Active Kylie Yokum A PRN Nontoxic uninodular goiter Screening mammogram V76.12 Resolved Kylie Yokum A PRN Other screening mammogram Mandy 706.2 Resolved Kylie Yokum KETTLE OPERATOR Sebaceous cyst Colon cancer, ascending 153.6 Resolved Kylie Yok um KETTLE OPERATOR Malignant neoplasm of ascending colon Foot pain, left 729.5 Resolved Kylie Yokum KETTLE OPERATOR Pain in limb Splinter 919.6 Resolved Kylie Yokum KETTLE OPERATOR Superficial foreign body (splinter) of other, multiple, and unspecified sites, without major open wound and without mention of infection Rash 782.1 Resolved Kylie Yokum KETTLE OPERATOR Rash and other nonspecific skin eruption Cyst 706.2 Resolved Kylie Yokum KETTLE OPERATOR Sebaceous cyst Body Mass Index 23.0-23.9 Adult Active Kylie Yokum KETTLE OPERATOR Body Mass Index between 19-24, adult Unspecified fall, initial encounter E888.9 Inactive Kylieshubham Holt KETTLE OPERATOR Unspecified fall Eye pain, left 379.91 Inactive Kylie Yogabbium KETTLE OPERATOR Pain in or around eye Pharyngitis, acute 074.0 Active Kylieshubham Holt APR N Herpangina ABDOMINAL PAIN, RIGHT LOWER QUADRANT ICD-789.03 Inactive Kina Joshua KETTLE OPERATOR ADENOCARCINOMA, COLON, 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 Dick Yates MD ABDOMINAL PAIN, GENERALIZED ICD-789.07 Inactive Hope Benavidez MD PhD FEVER UNSPECIFIED ICD-780.60 Inactive Hope cohn MD PhD UNSPECIFIED VENOUS INSUFFICIENCY ICD-459.81 Elda ctive Adam Yates MD ADENOCARCINOMA, 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 Inac tive Hope Benavidez MD PhD Hyperkalemia ICD-276.7 Inactive Hope Benavidez MD PhD GERD ICD-530.81 Inactive Kylie Lundum KETTLE OPERATOR 2015 Health maintenance exam ICD-V70.0 Bam Yates MD Anemia ICD-285.9 Inactive Kylie Lundum KETTLE OPERATOR 07/24 Hypomagnesemia ICD-275.2 Inactive Kylie Yokum KETTLE OPERATOR Weakness ICD-780.79 Inactive Hope Benavidez MD [...] cyst, scalp ICD-706.2 Inactive Tracy hi Yokum KETTLE OPERATOR Cervical lymphadenopathy, anterior, left ICD-785.6 Inactive Kylie Yokum KETTLE OPERATOR Need for prophylactic vaccination and inoculation against in fluenza ICD-V04.81 Inactive Adam Yates MD Preventive health care ICD-V70.0 Inactive Ka thi Yokum KETTLE OPERATOR Screening mammogram ICD-V76.12 Inactive Kylie Yokum KETTLE OPERATOR Mandy ICD-706.2 Inactive Kylie Yokum KETTLE OPERATOR 07/20 Colon cancer, ascending ICD-153.6 Inactive K athi Yokum KETTLE OPERATOR Foot pain, left ICD-729.5 Inactive Kylie Yokum KETTLE OPERATOR Splinter ICD-919.6 Inactive Kylie Yokum KETTLE OPERATOR 2017 Rash ICD-782.1 Inactive Kylie Yokum KETTLE OPERATOR 07/25 Cyst ICD-706.2 Inactive Kylie Holt KETTLE OPERATOR 08/11 Unspecified fall, initial encounter ICD-E888.9 Inactive Kylie Holt KETTLE OPERATOR Eye pain, left ICD-379.91 Inactive Kylie Holt KETTLE OPERATOR Medication List Medication Instructions Start Date Stop Date Generic Name ND Status Provider Patient Instruction IMODIUM A-D 2 MG ORAL TABLET 1 tablet twice a day LOPERAMIDE HCL 69793347145 Active Kylie Holt KETTLE OPERATOR Active VOLTAREN 1 % TRANSDERMAL GEL apply q 6-8 hour to left arm as needed for pain DICLOFENAC SODIUM 75689177178 Active Kylie Holt APRN Active COQ10 100 MG ORAL CAPSULE 1 daily COENZYME Q10 966754 78068 Active LETY [place] Active VITAMIN D3 2000 UNIT ORAL CAPSULE Melaleuca-One daily CHOLECALCIFEROL 93395009166 Active Kylie Holt APRN Active PROBIOTIC DAILY ORAL CAPSULE Take one daily PROBIO TIC PRODUCT 23855328062 Active Kylie Holt APRN Active IRON 325 (65 Fe) MG ORAL TABLET 1 every other day FERROUS SULFATE 61901752711 No Longer Active Kylie Holt APRN Active FLORANEX ORAL PACKET 1 pack three times daily, for bowel health LACTOBACILLUS 95682449920 No Longer Active Kylie Holt APRN Active LOMOTIL 2.5-0.025 MG ORAL TABLET 1 tab by mouth prn 23/10/23 DIPHENOXYLATE-ATROPINE 80467395897 No Longer Active Kylie Lundum KETTLE OPERATOR Active MAGNESIUM GLUCONATE 250 MG ORAL TABLET 1 tab tid 23/10/23 MAGNESIUM GLUCONATE 10865739727 No Longer Active Kylie Lundum KETTLE OPERATOR Active CYANOCOBALAMIN 1000 MCG/ML INJECTION SOLUTION 1 injection ev ruben 2 weeks CYANOCOBALAMIN 03933617443 No Longer Active Kylie Lund um KETTLE OPERATOR Active ATENOLOL 25 MG ORAL TABLET 1/2 pill by mouth daily, fo r headaches, blood pressure ATENOLOL 59233356656 Active Kylie Escalonagabbioliver KETTLE OPERATOR Active PROPRANOLOL HCL 80 MG ORAL TABLET 1 tab tue. and thur. PROPRANOLOL HCL 52580251295 No Longer Active Hope Benavidez MD PhD A ctive VITAMIN D3 4000 IU 1 tab 3 times daily VITAMIN D3 4000 IU No Longer Active Hope Benavidez MD PhD Active BACTRIM DS 800-160 MG ORAL TABLET 1 pill by mouth twice claudio y, for UTI SULFAMETHOXAZOLE-TRIMETHOPRIM 08586322156 No Longer Active Hope Benavidez MD PhD Active PROLIA 60 MG/ML SUBCUTANEOUS SOLUTION 1 shot every 6 months for osteoprosis DENOSUMAB 18197469916 Active Hope Benavidez MD PhD Active CALCIUM + D + K 750-500-40 MG-UNT-MCG ORAL TABLET 1 tab by m outh twice daily CALCIUM-VITAMIN D-VITAMIN K 94556647644 Active Hope valdez MD PhD Active DAILY VALUE MULTIVITAMIN ORAL TABLET 1 tab by mouth twice daily 201 05/16/14 MULTIPLE VITAMIN 40108989758 Active Hope Benavidez MD PhD Acti ve FISH OIL 306 MG CAPS 1 tab by mouth three times daily OMEGA-3 FATTY ACIDS 35509494069 Active Hope Benavidez MD PhD Active LUTEIN 10 MG ORAL TABLET 1 tab daily LUTEIN 39882058 408 Active Hope Benavidez MD PhD Active TRIAMTERENE-HCTZ 37.5-25 MG ORAL TABLET 1 tab by mouth daily 10/22 TRIAMTERENE-HCTZ 53296151255 Active Kylie Holt APRN Active CYCLOBENZAPRINE HCL 10 MG ORAL TABLET 1 tablet by mout h three times daily as needed for headaches CYCLOBENZAPRINE HCL 80748682502 No Longer Active Adam Yates MD Active OMEPRAZOLE 20 MG ORAL CAPSULE DELAYED RELEASE 1 tablet by mo uth daily for GERD OMEPRAZOLE 19104816448 No Longer Active Adam Yates MD Active ZOFRAN 8 MG ORAL TABLET 1 tab by mouth every 12 hours prn 4 ONDANSETRON HCL 17114306813 No Longer Active Adam Yates MD Active PHENADOZ 25 MG RECTAL SUPPOSITORY 1 every 4 hrs. PRN 2 PROMETHAZINE HCL 73711033946 No Longer Active Adam Yates MD A ctive POTASSIUM CHLORIDE 20 MEQ ORAL PACKET by mouth twice a day prn 2 POTASSIUM CHLORIDE 71016490387 No Longer Active Adam Carpenter MD Active PROMETHAZINE HCL 25 MG ORAL TABLET 1 Q. 4 hr. PRN PROMETHAZINE HCL 93141553109 No Longer Active Adam Yates MD Active INNOPRAN XL 120 MG ORAL CAPSULE EXTENDED RELEASE 24 HO UR Take one by mouth daily PROPRANOLOL HCL SR BEADS 18026240855 No Longer Active Adam Yates MD Active FLAGYL 500 MG ORAL TABLET 1 pill by mouth three times daily, for diarrhea METRONIDAZOLE 28049696510 No Longer Active Hope landers MD PhD Active DYAZIDE 37.5-25 MG ORAL CAPSULE 1 qd TRIA MTERENE-HCTZ 84722797227 No Longer Active Hope Benavidez MD PhD Active PROZAC 20 MG ORAL CAPSULE 1 q d FLUOXETINE HCL 32035653425 No Longer Active Hope Benavidez MD PhD Active SIMVASTATIN 40 MG ORAL TABLET 1 qd SIMVAS TATIN 04421313686 No Longer Active Adam Yates MD Active MELOXICAM 15 MG ORAL TABLET 1 qd MELOXICAM 38892996888 No Longer Active Adam Yates MD Active EXCEDRIN EXTRA STRENGTH 250-250-65 MG ORAL TABLET 1-2 q6h GA N headache [id number] 05452020175 Active Hope Benavidez MD PhD Active FLAGYL 500 MG ORAL TABLET 1 qid METRONIDAZOL E 79626316871 No Longer Active Adam Yates MD Active LEVAQUIN 750 MG ORAL TABLET 1 qd LEVOFLOXAC IN 92140450443 No Longer Active Adam Yates MD Active ADULT ASPIRIN LOW STRENGTH 81 MG ORAL TABLET DISINTEGRATING 1 qd ASPIRIN 34393946677 Active Hope Benavidez MD PhD Active LEVAQUIN 750 MG ORAL TABLET 1 qd LEVAQUIN 750 MG ORAL TABLET 001702 LEVOFLOXACIN Inactive FLAGYL 500 MG ORAL TABLET 1 qid FLAGYL 500 MG ORAL TABLET 951957 METRONIDAZOLE Inactive MELOXICAM 15 MG ORAL TABLET 1 qd MELOXICAM 15 MG ORAL TABLET 764830 MELOXICAM Inactive SIMVASTATIN 40 MG ORAL TABLET 1 qd SIMVASTATIN 40 MG ORAL TABLET 322088 SIMVASTATIN Inactive PROZAC 20 MG ORAL CAPSULE 1 q d PROZAC 20 MG ORAL CAPSULE 704797 FLUOXETINE HCL Inactive DYAZIDE 37.5-25 MG ORAL CAPSULE 1 qd 5 DYAZIDE 37.5-25 MG ORAL CAPSULE 739469 TRIAMTERENE-HCTZ Inactive INNOPRAN XL 120 MG ORAL CAPSULE EXTENDED RELEASE 24 HO UR Take one by mouth daily INNOPRAN XL 120 MG ORAL CAPSULE EXTENDED RELEASE 24 HOUR PROPRANOLOL HCL SR BEADS Inactive PROMETHAZINE HCL 25 MG ORAL TABLET 1 Q. 4 hr. PRN 2013 PROMETHAZINE HCL 25 MG ORAL TABLET 702111 PROMETHAZINE HCL Inactive POTASSIUM CHLORIDE 20 MEQ ORAL PACKET by mouth twice a day prn 2 POTASSIUM CHLORIDE 20 MEQ ORAL PACKET 1231115 POTASSIUM CHLORIDE Inactive PHENADOZ 25 MG RECTAL SUPPOSITORY 1 every 4 hrs. PRN 2 PHENADOZ 25 MG RECTAL SUPPOSITORY 273876 PROMETHAZINE HCL Inactive ZOFRAN 8 MG ORAL TABLET 1 tab by mouth every 12 hours prn 4 ZOFRAN 8 MG ORAL TABLET 903134 ONDANSETRON HCL Inactive OMEPRAZOLE 20 MG ORAL CAPSULE DELAYED RELEASE 1 tablet by mo [facility] daily for GERD OMEPRAZOLE 20 MG ORAL CAPSULE DELAYED RELEASE 19 8051 OMEPRAZOLE Inactive CYCLOBENZAPRINE HCL 10 MG ORAL TABLET 1 tablet by mout h three times daily as needed for headaches CYCLOBENZAPRINE HCL 10 MG ORAL TABLET 864709 CYCLOBENZAPRINE HCL Inactive VITAMIN D3 4000 IU 1 tab 3 times daily VITAMIN D3 4000 IU Inactive PROPRANOLOL HCL 80 MG ORAL TABLET 1 tab tue. and thur. PROPRANOLOL HCL 80 MG ORAL TABLET 512170 PROPRANOLOL HCL Inacti ve CYANOCOBALAMIN 1000 MCG/ML INJECTION SOLUTION 1 injection ev ruben 2 weeks CYANOCOBALAMIN 1000 MCG/ML INJECTION SOLUTION 30 9594 CYANOCOBALAMIN Inactive MAGNESIUM GLUCONATE 250 MG ORAL TABLET 1 tab tid 23/10/23 MAGNESIUM GLUCONATE 250 MG ORAL TABLET 294110 MAGNESIUM GLUCONATE Inactive LOMOTIL 2.5-0.025 MG ORAL TABLET 1 tab by mouth prn 23/10/23 LOMOTIL 2.5-0.025 MG ORAL TABLET 8107003 DIPHENOXYLATE-ATROPINE Inac tive FLORANEX ORAL PACKET 1 pack three times daily, for bowel health FLORANEX ORAL PACKET 41298178978 LACTOBACILLUS Inactive IRON 325 (65 Fe) MG ORAL TABLET 1 every other day 2015 IRON 325 (65 Fe) MG ORAL TABLET 906309 FERROUS SULFATE Inactive FLAGYL 500 MG ORAL TABLET 1 pill by mouth three times daily, for diarrhea FLAGYL 500 MG ORAL TABLET 326031 METRONIDAZOLE I nactive BACTRIM DS 800-160 MG ORAL TABLET 1 pill by mouth twice claudio y, for UTI BACTRIM DS 800-160 MG ORAL TABLET 287745 SULFAMETHOXAZOLE-TRIMETHOPRIM Inactive Advance Directives Directive Description Start [...] ... - Chemistry sodium, serum 138 mmol/L 822-653 1543/12/15 potassium, serum 4.0 mmol/L 3.5-5.2 chloride, serum [...] - Chem istry sodium, serum 142 mmol/L 481-881 1141/04/19 carbon dioxide, venous blood 30.2 mmol/L 21.0-32 [...] mg/dL Encounters Code Encounter Date Provider Facility CPT-22084 [id number] Vst-Est Level III 14:29:19 CDT Fiorella weston Polapari [facility] [place] CPT-26673 Level 2 Est. Patient 14:58:26 CDT Kylie boyd [facility] [place] CPT-87376 Level 3 Est. Patient 08:15:24 LITHOGRAPHIC PHOTOGRAPHER APPRENTICE Kylie Yogabbi [facility] [place] CPT-15006 Level 2 Est. Patient 14:27:16 LITHOGRAPHIC PHOTOGRAPHER APPRENTICE Kylie Kevon [facility] [place] CPT-60045 Level 3 Est. Patient 17:54:48 CDT Kylie Yogabbi [facility] [place] CPT-61737 Level 3 Est. Patient 16:26:30 CDT Kina blackmon [facility] CPT-08010 Level 3 New Patient 16:22:01 LITHOGRAPHIC PHOTOGRAPHER APPRENTICE Adam Yates MD [facility] CPT-40467 Level 4 Est. Patient 17:00:48 CDT Kylie Lund [facility] [place] CPT-24868 Level 3 Est. Patient 13:15:54 CDT Kylie Lund [facility] CPT-34362 Level 3 Est. Patient 09:10:11 CDT Kylie Lund [facility] CPT-85213 Level 4 Est. Patient 12:08:30 LITHOGRAPHIC PHOTOGRAPHER APPRENTICE Hope cohn MD PhD [facility] CPT-03592 Level 4 Est. Patient 19:08:42 LITHOGRAPHIC PHOTOGRAPHER APPRENTICE Hope cohn MD PhD [facility] CPT-96457 Level 4 Est. Patient 20:04:51 CDT Hope cohn MD PhD [facility] CPT-41998 Level 3 New Patient 01:46:11 LITHOGRAPHIC PHOTOGRAPHER APPRENTICE Hope landers MD PhD [facility] Procedures Code Procedure Name Date Entry Date Standard Desc ription CPT-G0439 [facility] Annual Wellness Exam 14:29:19 CDT CPT-46175 Venipuncture Draw Fee 10:59:04 CDT CPT-24946 CMP - LAB USE ONLY 10:59:04 CDT CPT-82370 CBC with Diff - LAB USE ONLY 10:59:03 CDT 2 CPT-J0897 Prolia 60 mg 15:46:54 LITHOGRAPHIC PHOTOGRAPHER APPRENTICE CPT-44043 Abx/Therapy Injection 15:46:54 LITHOGRAPHIC PHOTOGRAPHER APPRENTICE CPT-46487 Microalbumin - LAB USE ONLY 09:41:32 LITHOGRAPHIC PHOTOGRAPHER APPRENTICE 20 23/01/15 CPT-22193 Free T4 - LAB USE ONLY 09:41:32 LITHOGRAPHIC PHOTOGRAPHER APPRENTICE CPT-15026 TSH - LAB USE ONLY 09:41:32 LITHOGRAPHIC PHOTOGRAPHER APPRENTICE CPT-46085 BMP - LAB USE ONLY 09:41:32 LITHOGRAPHIC PHOTOGRAPHER APPRENTICE CPT-02220 Venipuncture Draw Fee 09:41:32 LITHOGRAPHIC PHOTOGRAPHER APPRENTICE CPT-50643 First Vx - Ix admin for Medicare patients 11:19:30 CDT CPT-27963 Fluzone High-Dose Intramuscular Suspension 12/07 11:19:30 CDT CPT-J0897 Prolia 60 mg 14:55:42 CDT CPT-90243 Abx/Therapy Injection 14:55:42 CDT CPT-55000 Bone Density - XRAY USE ONLY 10:27:12 CDT 2 CPT-G0439 [facility] Subsequent Annual Wellness Exam 17:54:53 CDT CPT-18349 Foot, left, comp min 3V - XRAY USE ONLY 12:22:49 CDT CPT-G0009 Administration of Pneumococcal Vaccine 3 12:18:00 CDT CPT-94597 Pneumovax 23 Injection Injectable 25 MCG /0.5ML 12:18:00 CDT CPT-J0897 Prolia 60 mg 14:14:16 LITHOGRAPHIC PHOTOGRAPHER APPRENTICE CPT-24882 Abx/Therapy Injection 14:14:15 LITHOGRAPHIC PHOTOGRAPHER APPRENTICE CPT-45336 Lipid - LAB USE ONLY 10:01:52 LITHOGRAPHIC PHOTOGRAPHER APPRENTICE 2 CPT-99105 Calcium - LAB USE ONLY 10:01:51 LITHOGRAPHIC PHOTOGRAPHER APPRENTICE CPT-59428 Venipuncture Draw Fee 10:01:51 LITHOGRAPHIC PHOTOGRAPHER APPRENTICE CPT-LR Lesion Removal 16:22:01 LITHOGRAPHIC PHOTOGRAPHER APPRENTICE CPT-96123 TSH - LAB USE ONLY 14:26:02 CDT CPT-18218 CMP - LAB USE ONLY 14:26:01 CDT CPT-53653 CBC with Diff - LAB USE ONLY 14:26:01 CDT 2 CPT-85000 Venipuncture Draw Fee 14:26:01 CDT CPT-47372 First Vx - Ix admin for Medicare patients 13:27:08 CDT CPT-25362 Fluzone High-Dose Intramuscular Suspension 11/26 13:27:08 CDT CPT-G0438 Initial Annual Wellness Exam 14:19:57 CD T CPT-G0009 Administration of Pneumococcal Vaccine 9 11:36:25 CDT CPT-12006 Prevnar 13 Intramuscular Suspension 1 1:36:25 CDT CPT-56777 Prevnar 13 Intramuscular Suspension 1 0:40:58 CDT CPT-J0897 Prolia 60 mg 10:37:16 CDT CPT-69052 Abx/Therapy Injection 10:37:16 CDT CPT-J0897 Prolia 60 mg 16:09:34 LITHOGRAPHIC PHOTOGRAPHER APPRENTICE CPT-J0897 Prolia 60 mg 11:10:35 LITHOGRAPHIC PHOTOGRAPHER APPRENTICE CPT-26054 Abx/Therapy Injection 11:10:35 LITHOGRAPHIC PHOTOGRAPHER APPRENTICE CPT-000 Give Appropriate Flu Vaccine 17:01:15 LITHOGRAPHIC PHOTOGRAPHER APPRENTICE 2 CPT-49304 Fluzone High Dose (65+) 15:03:08 LITHOGRAPHIC PHOTOGRAPHER APPRENTICE 02/15 CPT-25470 Immunization Single Admin 15:03:08 LITHOGRAPHIC PHOTOGRAPHER APPRENTICE 2014 CPT-OV Office Visit 15:58:06 CDT CPT-J0897 Prolia 60 mg 08:45:38 CDT CPT-67437 Abx/Therapy Injection 08:45:38 CDT CPT-J3420 Vitamin B12 1000mcg (Cyanocobalamin) 09:26:20 LITHOGRAPHIC PHOTOGRAPHER APPRENTICE CPT-63189 Abx/Therapy Injection 09:26:20 LITHOGRAPHIC PHOTOGRAPHER APPRENTICE CPT-J3420 Vitamin B12 1000mcg (Cyanocobalamin) 09:44:40 LITHOGRAPHIC PHOTOGRAPHER APPRENTICE CPT-24749 Abx/Therapy Injection 09:44:40 LITHOGRAPHIC PHOTOGRAPHER APPRENTICE CPT-J3420 Vitamin B12 1000mcg (Cyanocobalamin) 09:15:54 LITHOGRAPHIC PHOTOGRAPHER APPRENTICE CPT-21799 Abx/Therapy Injection 09:15:54 LITHOGRAPHIC PHOTOGRAPHER APPRENTICE CPT-J3420 Vitamin B12 1000mcg (Cyanocobalamin) 09:46:44 LITHOGRAPHIC PHOTOGRAPHER APPRENTICE CPT-57006 Abx/Therapy Injection 09:46:44 LITHOGRAPHIC PHOTOGRAPHER APPRENTICE CPT-J3420 Vitamin B12 1000mcg (Cyanocobalamin) 09:47:34 LITHOGRAPHIC PHOTOGRAPHER APPRENTICE CPT-36920 Abx/Therapy Injection 09:47:34 LITHOGRAPHIC PHOTOGRAPHER APPRENTICE CPT-J3420 Vitamin B12 1000mcg (Cyanocobalamin) 14:35:50 LITHOGRAPHIC PHOTOGRAPHER APPRENTICE CPT-J3420 Vitamin B12 1000mcg (Cyanocobalamin) 09:25:05 LITHOGRAPHIC PHOTOGRAPHER APPRENTICE CPT-02773 Abx/Therapy Injection 09:25:05 LITHOGRAPHIC PHOTOGRAPHER APPRENTICE CPT-G0008 Administration of Influenza Virus Vaccine 13:36:47 CDT CPT-42572 Fluzone High-Dose Intramuscular Suspension 11/15 13:36:47 CDT CPT-J0897 Prolia 60 mg 08:50:41 CDT CPT-90080 Abx/Therapy Injection 08:50:41 CDT CPT-81189 Bone Density 12:06:12 CDT CPT-73627 Bone Density 08:54:40 CDT CPT-OV Office Visit 15:37:02 CDT CPT-86943 Postop F/U Visit 15:47:49 CDT CPT-51211 Postop F/U Visit 15:21:02 CDT CPT-TCM Transitional Care Mgmt-High 07:52:27 CDT 20 20/06/01 CPT-30486 Venipuncture Draw Fee 13:51:18 CDT CPT-67261 Venipuncture Draw Fee 10:14:55 LITHOGRAPHIC PHOTOGRAPHER APPRENTICE CPT-12179 Venipuncture Draw Fee 13:39:45 LITHOGRAPHIC PHOTOGRAPHER APPRENTICE CPT-OV Office Visit 15:11:22 LITHOGRAPHIC PHOTOGRAPHER APPRENTICE CPT-23966 Venipuncture Draw Fee 09:20:49 LITHOGRAPHIC PHOTOGRAPHER APPRENTICE CPT-71284 Venipuncture Draw Fee 16:52:15 LITHOGRAPHIC PHOTOGRAPHER APPRENTICE CPT-00306 Venipuncture Draw Fee 10:37:24 LITHOGRAPHIC PHOTOGRAPHER APPRENTICE CPT-16979 Venipuncture Draw Fee 08:21:21 LITHOGRAPHIC PHOTOGRAPHER APPRENTICE CPT-15531 Venipuncture Draw Fee 08:30:20 LITHOGRAPHIC PHOTOGRAPHER APPRENTICE CPT-58016 Venipuncture Draw Fee 14:53:21 LITHOGRAPHIC PHOTOGRAPHER APPRENTICE CPT-36255 Venipuncture Draw Fee 09:40:56 LITHOGRAPHIC PHOTOGRAPHER APPRENTICE CPT-35844 Venipuncture Draw Fee 10:30:47 LITHOGRAPHIC PHOTOGRAPHER APPRENTICE CPT-38705 Venipuncture Draw Fee 10:46:17 LITHOGRAPHIC PHOTOGRAPHER APPRENTICE CPT-88323 Venipuncture Draw Fee 11:12:45 LITHOGRAPHIC PHOTOGRAPHER APPRENTICE CPT-84218 Venipuncture Draw Fee 09:53:33 LITHOGRAPHIC PHOTOGRAPHER APPRENTICE CPT-04642 Venipuncture Draw Fee 11:53:51 LITHOGRAPHIC PHOTOGRAPHER APPRENTICE CPT-41595 Venipuncture Draw Fee 10:33:50 LITHOGRAPHIC PHOTOGRAPHER APPRENTICE CPT-80695 Venipuncture Draw Fee 10:05:01 LITHOGRAPHIC PHOTOGRAPHER APPRENTICE 2013/12/ 03 CPT-55871 Venipuncture Draw Fee 14:32:52 LITHOGRAPHIC PHOTOGRAPHER APPRENTICE CPT-68333 Venipuncture Draw Fee 09:46:13 LITHOGRAPHIC PHOTOGRAPHER APPRENTICE CPT-69742 Venipuncture Draw Fee 11:34:27 LITHOGRAPHIC PHOTOGRAPHER APPRENTICE CPT-71650 Venipuncture Draw Fee 13:17:16 LITHOGRAPHIC PHOTOGRAPHER APPRENTICE CPT-08931 Venipuncture Draw Fee 12:05:39 CDT CPT-23607 Venipuncture Draw Fee 12:49:12 CDT CPT-17402 Venipuncture Draw Fee 12:37:18 CDT CPT-72159 Venipuncture Draw Fee 10:57:11 CDT CPT-25408 Venipuncture Draw Fee 13:47:40 CDT CPT-74467 Venipuncture Draw Fee 10:02:17 CDT CPT-46764 TB Tubersol 17:32:32 CDT CPT-OV Office Visit 16:21:53 CDT CPT-OV Office Visit 15:49:22 CDT CPT-OV Office Visit 17:16:31 CDT CPT-OV Office Visit 10:43:31 CDT
--- OUTSIDE RECORDS SUMMARY | 2019-02-09 12:15 | XMS REPORT | Clinical Summary ---
Author Author Renaldo, Florecita Munoz Organization [facility] [email or web address] Address Unknown Phone Unavailable Allergies, Adverse Reactions, [...] PhD Hyperpotassemia GERD 530.81 Resolved Kylie Yokum SALES RESEARCH ANALYST Esophageal reflux Health maintenance exam V70.0 Resolved Adolfo Yates MD Routine general medical examination at a health care facility Anemia 285.9 Resolved Kylie Yanet SALES RESEARCH ANALYST Anemia, unspecified Personal history of malignant neoplasm of large intestine V10.05 Active Adam Yates MD Personal history of malignant neoplasm of large intestine Hypomagnesemia 275.2 Resolved Kylie Yanet SALES RESEARCH ANALYST Disorders of magnesium metabolism Weakness 780.79 [...] Sebaceous cyst, scalp 706.2 Resolved Kylie Yokum SALES RESEARCH ANALYST Sebaceous cyst Cervical lymphadenopathy, anterior, left 785.6 Resolv ed Kylie Yokum SALES RESEARCH ANALYST Enlargement of lymph nodes Need for prophylactic vaccination and inoculation against in fluenza V04.81 Resolved Adam Yates MD Need for prophylactic vaccination and inoculation against influenza Preventive health care V70.0 Resolved Kylie Escalonaku m SALES RESEARCH ANALYST Routine general medical examination at a health care facility Thyroid nodule, left 241.0 Active Kylie Yokum A PRN Nontoxic uninodular goiter Screening mammogram V76.12 Resolved Kylie Yokum A PRN Other screening mammogram Mandy 706.2 Resolved Kylie Yokum SALES RESEARCH ANALYST Sebaceous cyst Colon cancer, ascending 153.6 Resolved Kylie Yok um SALES RESEARCH ANALYST Malignant neoplasm of ascending colon Foot pain, left 729.5 Resolved Kylie Yokum SALES RESEARCH ANALYST Pain in limb Splinter 919.6 Resolved Kylie Yokum SALES RESEARCH ANALYST Superficial foreign body (splinter) of other, multiple, and unspecified sites, without major open wound and without mention of infection Rash 782.1 Resolved Kylie Yokum SALES RESEARCH ANALYST Rash and other nonspecific skin eruption Cyst 706.2 Resolved Kylie Yokum SALES RESEARCH ANALYST Sebaceous cyst Body Mass Index 23.0-23.9 Adult Active Kylie Yokum SALES RESEARCH ANALYST Body Mass Index between 19-24, adult Unspecified fall, initial encounter E888.9 Inactive Kylieshubham Holt SALES RESEARCH ANALYST Unspecified fall Eye pain, left 379.91 Inactive Kylie Yogabbium SALES RESEARCH ANALYST Pain in or around eye Pharyngitis, acute 074.0 Active Kylieshubham Holt APR N Herpangina ABDOMINAL PAIN, RIGHT LOWER QUADRANT ICD-789.03 Inactive Kina Joshua SALES RESEARCH ANALYST ADENOCARCINOMA, COLON, 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 Dick Yates MD ABDOMINAL PAIN, GENERALIZED ICD-789.07 Inactive Hope Benavidez MD PhD FEVER UNSPECIFIED ICD-780.60 Inactive Hope cohn MD PhD UNSPECIFIED VENOUS INSUFFICIENCY ICD-459.81 Elda ctive Adam Yates MD ADENOCARCINOMA, 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 Inac tive Hope Benavidez MD PhD Hyperkalemia ICD-276.7 Inactive Hope Benavidez MD PhD GERD ICD-530.81 Inactive Kylie Lundum SALES RESEARCH ANALYST 2015 Health maintenance exam ICD-V70.0 Bam Yates MD Anemia ICD-285.9 Inactive Kylie Lundum SALES RESEARCH ANALYST 07/24 Hypomagnesemia ICD-275.2 Inactive Kylie Yokum SALES RESEARCH ANALYST Weakness ICD-780.79 Inactive Hope Benavidez MD [...] cyst, scalp ICD-706.2 Inactive Tracy hi Yokum SALES RESEARCH ANALYST Cervical lymphadenopathy, anterior, left ICD-785.6 Inactive Kylie Yokum SALES RESEARCH ANALYST Need for prophylactic vaccination and inoculation against in fluenza ICD-V04.81 Inactive Adam Yates MD Preventive health care ICD-V70.0 Inactive Ka thi Yokum SALES RESEARCH ANALYST Screening mammogram ICD-V76.12 Inactive Kylie Yokum SALES RESEARCH ANALYST Mandy ICD-706.2 Inactive Kylie Yokum SALES RESEARCH ANALYST 07/20 Colon cancer, ascending ICD-153.6 Inactive K athi Yokum SALES RESEARCH ANALYST Foot pain, left ICD-729.5 Inactive Kylie Yokum SALES RESEARCH ANALYST Splinter ICD-919.6 Inactive Kylie Yokum SALES RESEARCH ANALYST 2017 Rash ICD-782.1 Inactive Kylie Yokum SALES RESEARCH ANALYST 07/25 Cyst ICD-706.2 Inactive Kylie Holt SALES RESEARCH ANALYST 08/11 Unspecified fall, initial encounter ICD-E888.9 Inactive Kylie Holt SALES RESEARCH ANALYST Eye pain, left ICD-379.91 Inactive Kylie Holt SALES RESEARCH ANALYST Medication List Medication Instructions Start Date Stop Date Generic Name ND Status Provider Patient Instruction IMODIUM A-D 2 MG ORAL TABLET 1 tablet twice a day LOPERAMIDE HCL 50596088699 Active Kylie Holt SALES RESEARCH ANALYST Active VOLTAREN 1 % TRANSDERMAL GEL apply q 6-8 hour to left arm as needed for pain DICLOFENAC SODIUM 60890623466 Active Kylie Holt APRN Active COQ10 100 MG ORAL CAPSULE 1 daily COENZYME Q10 746872 78804 Active LETY Nation Active VITAMIN D3 2000 UNIT ORAL CAPSULE Melaleuca-One daily CHOLECALCIFEROL 51851296218 Active Kylie Holt APRN Active PROBIOTIC DAILY ORAL CAPSULE Take one daily PROBIO TIC PRODUCT 27490119185 Active Kylie Holt APRN Active IRON 325 (65 Fe) MG ORAL TABLET 1 every other day FERROUS SULFATE 13565159095 No Longer Active Kylie Holt APRN Active FLORANEX ORAL PACKET 1 pack three times daily, for bowel health LACTOBACILLUS 00517265240 No Longer Active Kylie Holt APRN Active LOMOTIL 2.5-0.025 MG ORAL TABLET 1 tab by mouth prn 23/10/23 DIPHENOXYLATE-ATROPINE 95987917015 No Longer Active Kylie Lundum SALES RESEARCH ANALYST Active MAGNESIUM GLUCONATE 250 MG ORAL TABLET 1 tab tid 23/10/23 MAGNESIUM GLUCONATE 19641071620 No Longer Active Kylie Lundum SALES RESEARCH ANALYST Active CYANOCOBALAMIN 1000 MCG/ML INJECTION SOLUTION 1 injection ev ruben 2 weeks CYANOCOBALAMIN 43588362415 No Longer Active Kylie Lund um SALES RESEARCH ANALYST Active ATENOLOL 25 MG ORAL TABLET 1/2 pill by mouth daily, fo r headaches, blood pressure ATENOLOL 50148796275 Active Kylie Escalonagabbioliver SALES RESEARCH ANALYST Active PROPRANOLOL HCL 80 MG ORAL TABLET 1 tab tue. and thur. PROPRANOLOL HCL 05077227601 No Longer Active Hope Benavidez MD PhD A ctive VITAMIN D3 4000 IU 1 tab 3 times daily VITAMIN D3 4000 IU No Longer Active Hope Benavidez MD PhD Active BACTRIM DS 800-160 MG ORAL TABLET 1 pill by mouth twice claudio y, for UTI SULFAMETHOXAZOLE-TRIMETHOPRIM 10363452476 No Longer Active Hope Benavidez MD PhD Active PROLIA 60 MG/ML SUBCUTANEOUS SOLUTION 1 shot every 6 months for osteoprosis DENOSUMAB 51300515284 Active Hope Benavidez MD PhD Active CALCIUM + D + K 750-500-40 MG-UNT-MCG ORAL TABLET 1 tab by m outh twice daily CALCIUM-VITAMIN D-VITAMIN K 77711860763 Active Hope valdez MD PhD Active DAILY VALUE MULTIVITAMIN ORAL TABLET 1 tab by mouth twice daily 201 05/16/14 MULTIPLE VITAMIN 58538334366 Active Hope Benavidez MD PhD Acti ve FISH OIL 306 MG CAPS 1 tab by mouth three times daily OMEGA-3 FATTY ACIDS 91891772210 Active Hope Benavidez MD PhD Active LUTEIN 10 MG ORAL TABLET 1 tab daily LUTEIN 92501202 408 Active Hope Benavidez MD PhD Active TRIAMTERENE-HCTZ 37.5-25 MG ORAL TABLET 1 tab by mouth daily 10/22 TRIAMTERENE-HCTZ 74094210171 Active Kylie Holt APRN Active CYCLOBENZAPRINE HCL 10 MG ORAL TABLET 1 tablet by mout h three times daily as needed for headaches CYCLOBENZAPRINE HCL 39471462204 No Longer Active Adam Yates MD Active OMEPRAZOLE 20 MG ORAL CAPSULE DELAYED RELEASE 1 tablet by mo uth daily for GERD OMEPRAZOLE 30107562850 No Longer Active Adam Yates MD Active ZOFRAN 8 MG ORAL TABLET 1 tab by mouth every 12 hours prn 4 ONDANSETRON HCL 71458698336 No Longer Active Adam Yates MD Active PHENADOZ 25 MG RECTAL SUPPOSITORY 1 every 4 hrs. PRN 2 PROMETHAZINE HCL 23832797167 No Longer Active Adam Yates MD A ctive POTASSIUM CHLORIDE 20 MEQ ORAL PACKET by mouth twice a day prn 2 POTASSIUM CHLORIDE 39286190023 No Longer Active Adam Carpenter MD Active PROMETHAZINE HCL 25 MG ORAL TABLET 1 Q. 4 hr. PRN PROMETHAZINE HCL 02528801268 No Longer Active Adam Yates MD Active INNOPRAN XL 120 MG ORAL CAPSULE EXTENDED RELEASE 24 HO UR Take one by mouth daily PROPRANOLOL HCL SR BEADS 06899599111 No Longer Active Adam Yates MD Active FLAGYL 500 MG ORAL TABLET 1 pill by mouth three times daily, for diarrhea METRONIDAZOLE 03797928800 No Longer Active Hope landers MD PhD Active DYAZIDE 37.5-25 MG ORAL CAPSULE 1 qd TRIA MTERENE-HCTZ 58387063979 No Longer Active Hope Benavidez MD PhD Active PROZAC 20 MG ORAL CAPSULE 1 q d FLUOXETINE HCL 03228719536 No Longer Active Hope Benavidez MD PhD Active SIMVASTATIN 40 MG ORAL TABLET 1 qd SIMVAS TATIN 03642441182 No Longer Active Adam Yates MD Active MELOXICAM 15 MG ORAL TABLET 1 qd MELOXICAM 34333090973 No Longer Active Adam Yates MD Active EXCEDRIN EXTRA STRENGTH 250-250-65 MG ORAL TABLET 1-2 q6h NV N headache [id number] 15552887764 Active Hope Benavidez MD PhD Active FLAGYL 500 MG ORAL TABLET 1 qid METRONIDAZOL E 80312845804 No Longer Active Adam Yates MD Active LEVAQUIN 750 MG ORAL TABLET 1 qd LEVOFLOXAC IN 01981213636 No Longer Active Adam Yates MD Active ADULT ASPIRIN LOW STRENGTH 81 MG ORAL TABLET DISINTEGRATING 1 qd ASPIRIN 55168611511 Active Hope Benavidez MD PhD Active LEVAQUIN 750 MG ORAL TABLET 1 qd LEVAQUIN 750 MG ORAL TABLET 557927 LEVOFLOXACIN Inactive FLAGYL 500 MG ORAL TABLET 1 qid FLAGYL 500 MG ORAL TABLET 226681 METRONIDAZOLE Inactive MELOXICAM 15 MG ORAL TABLET 1 qd MELOXICAM 15 MG ORAL TABLET 556386 MELOXICAM Inactive SIMVASTATIN 40 MG ORAL TABLET 1 qd SIMVASTATIN 40 MG ORAL TABLET 275077 SIMVASTATIN Inactive PROZAC 20 MG ORAL CAPSULE 1 q d PROZAC 20 MG ORAL CAPSULE 550315 FLUOXETINE HCL Inactive DYAZIDE 37.5-25 MG ORAL CAPSULE 1 qd 5 DYAZIDE 37.5-25 MG ORAL CAPSULE 029811 TRIAMTERENE-HCTZ Inactive INNOPRAN XL 120 MG ORAL CAPSULE EXTENDED RELEASE 24 HO UR Take one by mouth daily INNOPRAN XL 120 MG ORAL CAPSULE EXTENDED RELEASE 24 HOUR PROPRANOLOL HCL SR BEADS Inactive PROMETHAZINE HCL 25 MG ORAL TABLET 1 Q. 4 hr. PRN 2013 PROMETHAZINE HCL 25 MG ORAL TABLET 315354 PROMETHAZINE HCL Inactive POTASSIUM CHLORIDE 20 MEQ ORAL PACKET by mouth twice a day prn 2 POTASSIUM CHLORIDE 20 MEQ ORAL PACKET 9735114 POTASSIUM CHLORIDE Inactive PHENADOZ 25 MG RECTAL SUPPOSITORY 1 every 4 hrs. PRN 2 PHENADOZ 25 MG RECTAL SUPPOSITORY 052811 PROMETHAZINE HCL Inactive ZOFRAN 8 MG ORAL TABLET 1 tab by mouth every 12 hours prn 4 ZOFRAN 8 MG ORAL TABLET 886748 ONDANSETRON HCL Inactive OMEPRAZOLE 20 MG ORAL CAPSULE DELAYED RELEASE 1 tablet by mo [facility] daily for GERD OMEPRAZOLE 20 MG ORAL CAPSULE DELAYED RELEASE 19 8051 OMEPRAZOLE Inactive CYCLOBENZAPRINE HCL 10 MG ORAL TABLET 1 tablet by mout h three times daily as needed for headaches CYCLOBENZAPRINE HCL 10 MG ORAL TABLET 156521 CYCLOBENZAPRINE HCL Inactive VITAMIN D3 4000 IU 1 tab 3 times daily VITAMIN D3 4000 IU Inactive PROPRANOLOL HCL 80 MG ORAL TABLET 1 tab tue. and thur. PROPRANOLOL HCL 80 MG ORAL TABLET 489708 PROPRANOLOL HCL Inacti ve CYANOCOBALAMIN 1000 MCG/ML INJECTION SOLUTION 1 injection ev ruben 2 weeks CYANOCOBALAMIN 1000 MCG/ML INJECTION SOLUTION 30 9594 CYANOCOBALAMIN Inactive MAGNESIUM GLUCONATE 250 MG ORAL TABLET 1 tab tid 23/10/23 MAGNESIUM GLUCONATE 250 MG ORAL TABLET 215052 MAGNESIUM GLUCONATE Inactive LOMOTIL 2.5-0.025 MG ORAL TABLET 1 tab by mouth prn 23/10/23 LOMOTIL 2.5-0.025 MG ORAL TABLET 7690503 DIPHENOXYLATE-ATROPINE Inac tive FLORANEX ORAL PACKET 1 pack three times daily, for bowel health FLORANEX ORAL PACKET 02590839704 LACTOBACILLUS Inactive IRON 325 (65 Fe) MG ORAL TABLET 1 every other day 2015 IRON 325 (65 Fe) MG ORAL TABLET 458047 FERROUS SULFATE Inactive FLAGYL 500 MG ORAL TABLET 1 pill by mouth three times daily, for diarrhea FLAGYL 500 MG ORAL TABLET 632536 METRONIDAZOLE I nactive BACTRIM DS 800-160 MG ORAL TABLET 1 pill by mouth twice claudio y, for UTI BACTRIM DS 800-160 MG ORAL TABLET 208433 SULFAMETHOXAZOLE-TRIMETHOPRIM Inactive Advance Directives Directive Description Start [...] pressure, diastolic, repeated by physician 60 BP dobsno blood pressure, diastolic 60 mm[Hg] BP dobson [...] ... - Chemistry sodium, serum 138 mmol/L 851-762 7405/12/15 potassium, serum 4.0 mmol/L 3.5-5.2 chloride, serum [...] - Chem istry sodium, serum 142 mmol/L 019-040 9836/04/19 carbon dioxide, venous blood 30.2 mmol/L 21.0-32 [...] mg/dL Encounters Code Encounter Date Provider Facility CPT-49955 58476-Chp Vst-Est Level III 14:29:19 CDT Fiorella weston [facility] [place] CPT-44457 Level 2 Est. Patient 14:58:26 CDT Kylie boyd [facility] [place] CPT-52459 Level 3 Est. Patient 08:15:24 DRAGLINE ENGINEER Kylie Yogabbi [facility] [place] CPT-18973 Level 2 Est. Patient 14:27:16 DRAGLINE ENGINEER Kylie Kevon [facility] [place] CPT-18308 Level 3 Est. Patient 17:54:48 CDT Kylie Yogabbi [facility] [place] CPT-44803 Level 3 Est. Patient 16:26:30 CDT Kina blackmon [facility] CPT-26430 Level 3 New Patient 16:22:01 DRAGLINE ENGINEER Adam Yates MD [facility] CPT-79391 Level 4 Est. Patient 17:00:48 CDT Kylie Lund [facility] [place] CPT-01077 Level 3 Est. Patient 13:15:54 CDT Kylie Lund [facility] CPT-78954 Level 3 Est. Patient 09:10:11 CDT Kylie Lund [facility] CPT-22820 Level 4 Est. Patient 12:08:30 DRAGLINE ENGINEER Hope cohn MD PhD [facility] CPT-57339 Level 4 Est. Patient 19:08:42 DRAGLINE ENGINEER Hope cohn MD PhD [facility] CPT-07333 Level 4 Est. Patient 20:04:51 CDT Hope cohn MD PhD [facility] CPT-83372 Level 3 New Patient 01:46:11 DRAGLINE ENGINEER Hope landers MD PhD [facility] Procedures Code Procedure Name Date Entry Date Standard Desc ription CPT-G0439 [facility] Annual Wellness Exam 14:29:19 CDT CPT-67368 Venipuncture Draw Fee 10:59:04 CDT CPT-48245 CMP - LAB USE ONLY 10:59:04 CDT CPT-58924 CBC with Diff - LAB USE ONLY 10:59:03 CDT 2 CPT-J0897 Prolia 60 mg 15:46:54 DRAGLINE ENGINEER CPT-94496 Abx/Therapy Injection 15:46:54 DRAGLINE ENGINEER CPT-89453 Microalbumin - LAB USE ONLY 09:41:32 DRAGLINE ENGINEER 20 23/01/15 CPT-82768 Free T4 - LAB USE ONLY 09:41:32 DRAGLINE ENGINEER CPT-44119 TSH - LAB USE ONLY 09:41:32 DRAGLINE ENGINEER CPT-59666 BMP - LAB USE ONLY 09:41:32 DRAGLINE ENGINEER CPT-39839 Venipuncture Draw Fee 09:41:32 DRAGLINE ENGINEER CPT-90005 First Vx - Ix admin for Medicare patients 11:19:30 CDT CPT-30366 Fluzone High-Dose Intramuscular Suspension 12/07 11:19:30 CDT CPT-J0897 Prolia 60 mg 14:55:42 CDT CPT-80012 Abx/Therapy Injection 14:55:42 CDT CPT-48994 Bone Density - XRAY USE ONLY 10:27:12 CDT 2 CPT-G0439 [facility] Subsequent Annual Wellness Exam 17:54:53 CDT CPT-67076 Foot, left, comp min 3V - XRAY USE ONLY 12:22:49 CDT CPT-G0009 Administration of Pneumococcal Vaccine 3 12:18:00 CDT CPT-07564 Pneumovax 23 Injection Injectable 25 MCG /0.5ML 12:18:00 CDT CPT-J0897 Prolia 60 mg 14:14:16 DRAGLINE ENGINEER CPT-37273 Abx/Therapy Injection 14:14:15 DRAGLINE ENGINEER CPT-69916 Lipid - LAB USE ONLY 10:01:52 DRAGLINE ENGINEER 2 CPT-54140 Calcium - LAB USE ONLY 10:01:51 DRAGLINE ENGINEER CPT-39632 Venipuncture Draw Fee 10:01:51 DRAGLINE ENGINEER CPT-LR Lesion Removal 16:22:01 DRAGLINE ENGINEER CPT-79640 TSH - LAB USE ONLY 14:26:02 CDT CPT-80596 CMP - LAB USE ONLY 14:26:01 CDT CPT-43398 CBC with Diff - LAB USE ONLY 14:26:01 CDT 2 CPT-27199 Venipuncture Draw Fee 14:26:01 CDT CPT-89468 First Vx - Ix admin for Medicare patients 13:27:08 CDT CPT-78384 Fluzone High-Dose Intramuscular Suspension 11/26 13:27:08 CDT CPT-G0438 Initial Annual Wellness Exam 14:19:57 CD T CPT-G0009 Administration of Pneumococcal Vaccine 9 11:36:25 CDT CPT-58268 Prevnar 13 Intramuscular Suspension 1 1:36:25 CDT CPT-75761 Prevnar 13 Intramuscular Suspension 1 0:40:58 CDT CPT-J0897 Prolia 60 mg 10:37:16 CDT CPT-05798 Abx/Therapy Injection 10:37:16 CDT CPT-J0897 Prolia 60 mg 16:09:34 DRAGLINE ENGINEER CPT-J0897 Prolia 60 mg 11:10:35 DRAGLINE ENGINEER CPT-27795 Abx/Therapy Injection 11:10:35 DRAGLINE ENGINEER CPT-000 Give Appropriate Flu Vaccine 17:01:15 DRAGLINE ENGINEER 2 CPT-33340 Fluzone High Dose (65+) 15:03:08 DRAGLINE ENGINEER 02/15 CPT-32142 Immunization Single Admin 15:03:08 DRAGLINE ENGINEER 2014 CPT-OV Office Visit 15:58:06 CDT CPT-J0897 Prolia 60 mg 08:45:38 CDT CPT-37873 Abx/Therapy Injection 08:45:38 CDT CPT-J3420 Vitamin B12 1000mcg (Cyanocobalamin) 09:26:20 DRAGLINE ENGINEER CPT-76472 Abx/Therapy Injection 09:26:20 DRAGLINE ENGINEER CPT-J3420 Vitamin B12 1000mcg (Cyanocobalamin) 09:44:40 DRAGLINE ENGINEER CPT-45764 Abx/Therapy Injection 09:44:40 DRAGLINE ENGINEER CPT-J3420 Vitamin B12 1000mcg (Cyanocobalamin) 09:15:54 DRAGLINE ENGINEER CPT-20242 Abx/Therapy Injection 09:15:54 DRAGLINE ENGINEER CPT-J3420 Vitamin B12 1000mcg (Cyanocobalamin) 09:46:44 DRAGLINE ENGINEER CPT-54029 Abx/Therapy Injection 09:46:44 DRAGLINE ENGINEER CPT-J3420 Vitamin B12 1000mcg (Cyanocobalamin) 09:47:34 DRAGLINE ENGINEER CPT-31828 Abx/Therapy Injection 09:47:34 DRAGLINE ENGINEER CPT-J3420 Vitamin B12 1000mcg (Cyanocobalamin) 14:35:50 DRAGLINE ENGINEER CPT-J3420 Vitamin B12 1000mcg (Cyanocobalamin) 09:25:05 DRAGLINE ENGINEER CPT-26635 Abx/Therapy Injection 09:25:05 DRAGLINE ENGINEER CPT-G0008 Administration of Influenza Virus Vaccine 13:36:47 CDT CPT-86180 Fluzone High-Dose Intramuscular Suspension 11/15 13:36:47 CDT CPT-J0897 Prolia 60 mg 08:50:41 CDT CPT-55699 Abx/Therapy Injection 08:50:41 CDT CPT-39182 Bone Density 12:06:12 CDT CPT-93541 Bone Density 08:54:40 CDT CPT-OV Office Visit 15:37:02 CDT CPT-44441 Postop F/U Visit 15:47:49 CDT CPT-66331 Postop F/U Visit 15:21:02 CDT CPT-TCM Transitional Care Mgmt-High 07:52:27 CDT 20 20/06/01 CPT-89152 Venipuncture Draw Fee 13:51:18 CDT CPT-81183 Venipuncture Draw Fee 10:14:55 DRAGLINE ENGINEER CPT-48230 Venipuncture Draw Fee 13:39:45 DRAGLINE ENGINEER CPT-OV Office Visit 15:11:22 DRAGLINE ENGINEER CPT-49976 Venipuncture Draw Fee 09:20:49 DRAGLINE ENGINEER CPT-83931 Venipuncture Draw Fee 16:52:15 DRAGLINE ENGINEER CPT-42701 Venipuncture Draw Fee 10:37:24 DRAGLINE ENGINEER CPT-21447 Venipuncture Draw Fee 08:21:21 DRAGLINE ENGINEER CPT-15335 Venipuncture Draw Fee 08:30:20 DRAGLINE ENGINEER CPT-69862 Venipuncture Draw Fee 14:53:21 DRAGLINE ENGINEER CPT-58440 Venipuncture Draw Fee 09:40:56 DRAGLINE ENGINEER CPT-20054 Venipuncture Draw Fee 10:30:47 DRAGLINE ENGINEER CPT-98479 Venipuncture Draw Fee 10:46:17 DRAGLINE ENGINEER CPT-66886 Venipuncture Draw Fee 11:12:45 DRAGLINE ENGINEER CPT-24949 Venipuncture Draw Fee 09:53:33 DRAGLINE ENGINEER CPT-47214 Venipuncture Draw Fee 11:53:51 DRAGLINE ENGINEER CPT-22626 Venipuncture Draw Fee 10:33:50 DRAGLINE ENGINEER CPT-79490 Venipuncture Draw Fee 10:05:01 DRAGLINE ENGINEER 2013/12/ 03 CPT-60467 Venipuncture Draw Fee 14:32:52 DRAGLINE ENGINEER CPT-53586 Venipuncture Draw Fee 09:46:13 DRAGLINE ENGINEER CPT-67779 Venipuncture Draw Fee 11:34:27 DRAGLINE ENGINEER CPT-83185 Venipuncture Draw Fee 13:17:16 DRAGLINE ENGINEER CPT-13525 Venipuncture Draw Fee 12:05:39 CDT CPT-26230 Venipuncture Draw Fee 12:49:12 CDT CPT-60647 Venipuncture Draw Fee 12:37:18 CDT CPT-16774 Venipuncture Draw Fee 10:57:11 CDT CPT-81659 Venipuncture Draw Fee 13:47:40 CDT CPT-82495 Venipuncture Draw Fee 10:02:17 CDT CPT-20308 TB Tubersol 17:32:32 CDT CPT-OV Office Visit 16:21:53 CDT CPT-OV Office Visit 15:49:22 CDT CPT-OV Office Visit 17:16:31 CDT CPT-OV Office Visit 10:43:31 CDT
--- OUTSIDE RECORDS SUMMARY | 2019-02-09 12:15 | XMS REPORT | Clinical Summary ---
Author Author Renaldo, Florecita Munoz Organization [facility] [place] Address Unknown Phone Unavailable Allergies, Adverse Reactions, [...] PhD Hyperpotassemia GERD 530.81 Resolved Kylie Yokum [employer] Esophageal reflux Health maintenance exam V70.0 Resolved Adolfo Yates MD Routine general medical examination at a health care facility Anemia 285.9 Resolved Kylie Yanet [employer] Anemia, unspecified Personal history of malignant neoplasm of large intestine V10.05 Active Adam Yates MD Personal history of malignant neoplasm of large intestine Hypomagnesemia 275.2 Resolved Kylie Yanet [employer] Disorders of magnesium metabolism Weakness 780.79 [...] Sebaceous cyst, scalp 706.2 Resolved Kylie Yokum [employer] Sebaceous cyst Cervical lymphadenopathy, anterior, left 785.6 Resolv ed Kylie Yokum [employer] Enlargement of lymph nodes Need for prophylactic vaccination and inoculation against in fluenza V04.81 Resolved Adam Yates MD Need for prophylactic vaccination and inoculation against influenza Preventive health care V70.0 Active Kylie Yokum [employer] Routine general medical examination at a health care facility Thyroid nodule, left 241.0 Active Kylie Yokum A PRN Nontoxic uninodular goiter Screening mammogram V76.12 Active Kylie Yokum AP RN Other screening mammogram Mandy 706.2 Resolved Kylie Yokum [employer] Sebaceous cyst Colon cancer, ascending 153.6 Resolved Kylie Yok um [employer]ER Malignant neoplasm of ascending colon Foot pain, left 729.5 Active Sulema Naff [employer] Pain in limb Splinter 919.6 Active Kylie Yokum [employer] Superficial foreign body (splinter) of other, multiple, and unspecified sites, without major open wound and without mention of infection Rash 782.1 Active Kylie Yokum [employer]ISE HANDLER R aurora and other nonspecific skin eruption Cyst 706.2 Active Kylie Yokum [employer]ISE HANDLER S ebaceous cyst ABDOMINAL PAIN, RIGHT LOWER QUADRANT ICD-789.03 Inactive Kina Joshua [employer]ER ADENOCARCINOMA, COLON, 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 Dick Yates MD ABDOMINAL PAIN, GENERALIZED ICD-789.07 Inactive Hope Benavidez MD PhD FEVER UNSPECIFIED ICD-780.60 Inactive Hope cohn MD PhD UNSPECIFIED VENOUS INSUFFICIENCY ICD-459.81 Rowe ctive Adam Yates MD ADENOCARCINOMA, 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 Inac tive Hope Benavidez MD PhD Hyperkalemia ICD-276.7 Inactive Hope Benavidez MD PhD GERD ICD-530.81 Inactive Kylieshubham Holt MERCH[employer]ISE HANDLER 2015 Health maintenance exam ICD-V70.0 Bam Yates MD Anemia ICD-285.9 Inactive Kylieshubham Holt MERCH[employer]ISE HANDLER 07/24 Hypomagnesemia ICD-275.2 Inactive Kylie Holt [employer]ER Weakness ICD-780.79 Inactive Hope Benavidez MD [...] Sebaceous cyst, scalp ICD-706.2 Inactive Tracy Holt [employer]ER Cervical lymphadenopathy, anterior, left ICD-785.6 Inactive Kylie Lundum [employer]ER Need for prophylactic vaccination and inoculation against in fluenza ICD-V04.81 Inactive Adam Yates MD Mandy ICD-706.2 Inactive Kylie Holt MERCH[employer]ISE HANDLER 07/20 Colon cancer, ascending ICD-153.6 Inactive Bravo Holt [employer]ISE HANDLER Medication List Medication Instructions Start Date Stop Date Generic Name NDC Status Provider Patient Instruction VOLTAREN 1 % TRANSDERMAL GEL apply q 6-8 hour to left arm as needed for pain DICLOFENAC SODIUM 91884855692 Active Kylie Holt AMY Active COQ10 100 MG ORAL CAPSULE 1 daily COENZYME Q10 155610 77917 Active LETY Nation Active VITAMIN D3 2000 UNIT ORAL CAPSULE Melaleuca-One daily CHOLECALCIFEROL 09667122460 Active Kylie Holt APRN Active PROBIOTIC DAILY ORAL CAPSULE Take one daily PROBIO TIC PRODUCT 31300446097 Active Kylie Holt AMY Active IRON 325 (65 Fe) MG ORAL TABLET 1 every other day FERROUS SULFATE 39635495023 No Longer Active Kylie Holt AMY Active FLORANEX ORAL PACKET 1 pack three times daily, for bowel health LACTOBACILLUS 91963028523 No Longer Active Kylie Holt APRN Active LOMOTIL 2.5-0.025 MG ORAL TABLET 1 tab by mouth prn 20 23/10/23 DIPHENOXYLATE-ATROPINE 11450245699 No Longer Active Kylie Holt [employer] HANDLER Active MAGNESIUM GLUCONATE 250 MG ORAL TABLET 1 tab tid 23/10/23 MAGNESIUM GLUCONATE 92417546243 No Longer Active Kylie Yokum [employer] HANDLER Active CYANOCOBALAMIN 1000 MCG/ML INJECTION SOLUTION 1 injection ev ruben 2 weeks CYANOCOBALAMIN 78300316462 No Longer Active Kylie Lund um [employer]ISE HANDLER Active ATENOLOL 25 MG ORAL TABLET 1/2 pill by mouth daily, fo r headaches, blood pressure ATENOLOL 20731650097 Active Kylie Yokum [employer]ISE HANDLER Active PROPRANOLOL HCL 80 MG ORAL TABLET 1 tab tue. and thur. PROPRANOLOL HCL 97737760962 No Longer Active Hope Benavidez MD PhD A ctive VITAMIN D3 4000 IU 1 tab 3 times daily VITAMIN D3 4000 IU No Longer Active Hope Benavidez MD PhD Active BACTRIM DS 800-160 MG ORAL TABLET 1 pill by mouth twice claudio y, for UTI SULFAMETHOXAZOLE-TRIMETHOPRIM 15234226694 No Longer Active Hope Benavidez MD PhD Active PROLIA 60 MG/ML SUBCUTANEOUS SOLUTION 1 shot every 6 months for osteoprosis DENOSUMAB 59933205384 Active Hope Benavidez MD PhD Active CALCIUM + D + K 750-500-40 MG-UNT-MCG ORAL TABLET 1 tab by m out twice daily CALCIUM-VITAMIN D-VITAMIN K 98319977646 Active Hope valdez MD PhD Active DAILY VALUE MULTIVITAMIN ORAL TABLET 1 tab by mouth twice daily 201 05/16/14 MULTIPLE VITAMIN 67779098025 Active Hope Benavidez MD PhD Acti ve FISH OIL 306 MG CAPS 1 tab by mouth three times daily OMEGA-3 FATTY ACIDS 71958425122 Active Hope Benavidez MD PhD Active LUTEIN 10 MG ORAL TABLET 1 tab daily LUTEIN 05927743 408 Active Hope Benavidez MD PhD Active TRIAMTERENE-HCTZ 37.5-25 MG ORAL TABLET 1 tab by mouth daily 10/22 TRIAMTERENE-HCTZ 61930653387 Active LETY Rossi Activ e CYCLOBENZAPRINE HCL 10 MG ORAL TABLET 1 tablet by mout h three times daily as needed for headaches CYCLOBENZAPRINE HCL 23309019275 No Longer Active Adam Yates MD Active OMEPRAZOLE 20 MG ORAL CAPSULE DELAYED RELEASE 1 tablet by mo [facility] daily for GERD OMEPRAZOLE 39116723018 No Longer Active Adam Yates MD Active ZOFRAN 8 MG ORAL TABLET 1 tab by mouth every 12 hours prn 4 ONDANSETRON HCL 51577990317 No Longer Active Adam Yates MD Active PHENADOZ 25 MG RECTAL SUPPOSITORY 1 every 4 hrs. PRN 2 PROMETHAZINE HCL 77747629142 No Longer Active Adam Yates MD A ctive POTASSIUM CHLORIDE 20 MEQ ORAL PACKET by mouth twice a day prn 2 POTASSIUM CHLORIDE 61671579172 No Longer Active Adam Carpenter MD Active PROMETHAZINE HCL 25 MG ORAL TABLET 1 Q. 4 hr. PRN PROMETHAZINE HCL 63030030219 No Longer Active Adam Yates MD Active INNOPRAN XL 120 MG ORAL CAPSULE EXTENDED RELEASE 24 HO UR Take one by mouth daily PROPRANOLOL HCL SR BEADS 15518733233 No Longer Active Adam Yates MD Active FLAGYL 500 MG ORAL TABLET 1 pill by mouth three times daily, for diarrhea METRONIDAZOLE 28623956262 No Longer Active Hope landers MD PhD Active DYAZIDE 37.5-25 MG ORAL CAPSULE 1 qd TRIA MTERENE-HCTZ 18416418229 No Longer Active Hope Benavidez MD PhD Active PROZAC 20 MG ORAL CAPSULE 1 q d FLUOXETINE HCL 38838591454 No Longer Active Hope Benavidez MD PhD Active SIMVASTATIN 40 MG ORAL TABLET 1 qd SIMVAS TATIN 95746778938 No Longer Active Adam Yates MD Active MELOXICAM 15 MG ORAL TABLET 1 qd MELOXICAM 05803608929 No Longer Active Adam Yates MD Active IMODIUM A-D 2 MG ORAL TABLET 2 onset at diarrhea and prn. LOPERAMIDE HCL 74164290091 Active Hope Benavidez MD PhD Active EXCEDRIN EXTRA STRENGTH 250-250-65 MG ORAL TABLET 1-2 q6h DC N headache [id number] 82691869301 Active Hope Benavidez MD PhD Active FLAGYL 500 MG ORAL TABLET 1 qid METRONIDAZOL E 09978194235 No Longer Active Adam Yates MD Active LEVAQUIN 750 MG ORAL TABLET 1 qd LEVOFLOXAC IN 60686675004 No Longer Active Adam Yates MD Active ADULT ASPIRIN LOW STRENGTH 81 MG ORAL TABLET DISINTEGRATING 1 qd ASPIRIN 51686866817 Active Hope Benavidez MD PhD Active LEVAQUIN 750 MG ORAL TABLET 1 qd LEVAQUIN 750 MG ORAL TABLET 980523 LEVOFLOXACIN Inactive FLAGYL 500 MG ORAL TABLET 1 qid FLAGYL 500 MG ORAL TABLET 467880 METRONIDAZOLE Inactive MELOXICAM 15 MG ORAL TABLET 1 qd MELOXICAM 15 MG ORAL TABLET 293143 MELOXICAM Inactive SIMVASTATIN 40 MG ORAL TABLET 1 qd SIMVASTATIN 40 MG ORAL TABLET 179287 SIMVASTATIN Inactive PROZAC 20 MG ORAL CAPSULE 1 q d PROZAC 20 MG ORAL CAPSULE 010094 FLUOXETINE HCL Inactive DYAZIDE 37.5-25 MG ORAL CAPSULE 1 qd 5 DYAZIDE 37.5-25 MG ORAL CAPSULE 960804 TRIAMTERENE-HCTZ Inactive INNOPRAN XL 120 MG ORAL CAPSULE EXTENDED RELEASE 24 HO UR Take one by mouth daily INNOPRAN XL 120 MG ORAL CAPSULE EXTENDED RELEASE 24 HOUR PROPRANOLOL HCL SR BEADS Inactive PROMETHAZINE HCL 25 MG ORAL TABLET 1 Q. 4 hr. PRN 2013 PROMETHAZINE HCL 25 MG ORAL TABLET 502718 PROMETHAZINE HCL Inactive POTASSIUM CHLORIDE 20 MEQ ORAL PACKET by mouth twice a day prn 2 POTASSIUM CHLORIDE 20 MEQ ORAL PACKET 1565981 POTASSIUM CHLORIDE Inactive PHENADOZ 25 MG RECTAL SUPPOSITORY 1 every 4 hrs. PRN 2 014/09/10 PHENADOZ 25 MG RECTAL SUPPOSITORY 765318 PROMETHAZINE HCL Inactive ZOFRAN 8 MG ORAL TABLET 1 tab by mouth every 12 hours prn 4 ZOFRAN 8 MG ORAL TABLET 590852 ONDANSETRON HCL Inactive OMEPRAZOLE 20 MG ORAL CAPSULE DELAYED RELEASE 1 tablet by mo uth daily for GERD OMEPRAZOLE 20 MG ORAL CAPSULE DELAYED RELEASE 19 8051 OMEPRAZOLE Inactive CYCLOBENZAPRINE HCL 10 MG ORAL TABLET 1 tablet by mout h three times daily as needed for headaches CYCLOBENZAPRINE HCL 10 MG ORAL TABLET 599781 CYCLOBENZAPRINE HCL Inactive VITAMIN D3 4000 IU 1 tab 3 times daily VITAMIN D3 4000 IU Inactive PROPRANOLOL HCL 80 MG ORAL TABLET 1 tab tue. and thur. PROPRANOLOL HCL 80 MG ORAL TABLET 757269 PROPRANOLOL HCL Inacti ve CYANOCOBALAMIN 1000 MCG/ML INJECTION SOLUTION 1 injection ev ruben 2 weeks CYANOCOBALAMIN 1000 MCG/ML INJECTION SOLUTION 30 9594 CYANOCOBALAMIN Inactive MAGNESIUM GLUCONATE 250 MG ORAL TABLET 1 tab tid 20 23/10/23 MAGNESIUM GLUCONATE 250 MG ORAL TABLET 769398 MAGNESIUM GLUCONATE Inactive LOMOTIL 2.5-0.025 MG ORAL TABLET 1 tab by mouth prn 20 23/10/23 LOMOTIL 2.5-0.025 MG ORAL TABLET 9026352 DIPHENOXYLATE-ATROPINE Inac tive FLORANEX ORAL PACKET 1 pack three times daily, for bowel health FLORANEX ORAL PACKET LACTOBACILLUS Inactive IRON 325 (65 Fe) MG ORAL TABLET 1 every other day 2015 IRON 325 (65 Fe) MG ORAL TABLET 901482 FERROUS SULFATE Inactive FLAGYL 500 MG ORAL TABLET 1 pill by mouth three times daily, for diarrhea FLAGYL 500 MG ORAL TABLET 866172 METRONIDAZOLE I nactive BACTRIM DS 800-160 MG ORAL TABLET 1 pill by mouth twice claudio y, for UTI BACTRIM DS 800-160 MG ORAL TABLET 179566 SULFAMETHOXAZOLE-TRIMETHOPRIM Inactive Advance Directives Directive Description Start [...] Value Unit Range Description blood pressure, diastolic 51 mm[Hg] BP dobson [...] ... - Chemistry sodium, serum 138 mmol/L 267-351 1618/12/15 potassium, serum 4.0 mmol/L 3.5-5.2 chloride, serum [...] 11 .0-15.0 platelet count 157 THOUSAND/UL 10*3/mm3 299-741 8055/04/20 mean platelet volume 8.9 fL 7.5-12.5 Lab Report: CEA - Serology carcinoembryonic antigen 0.9 ng/mL Encounters Code Encounter Date Provider Facility CPT-13178 Level 3 Est. Patient 08:15:24 BIOMETRICS HEAD Kylie Lund [facility] CPT-13390 Level 2 Est. Patient 14:27:16 BI[facility]ETRICS HEAD [facility]PT-79465 Level 3 Est. Patient 17:54:48 CDT [facility] CPT-32831 Level 3 Est. Patient 16:26:30 CDT Kina blackmon [facility] CPT-07468 Level 3 New Patient 16:22:01 BIOMETRICS HEAD Adam Yates MD [facility] CPT-48482 Level 4 Est. Patient 17:00:48 CDT Kylie Lund [facility] CPT-04845 Level 3 Est. Patient 13:15:54 CDT Kylie Lund [facility] CPT-47918 Level 3 Est. Patient 09:10:11 CDT Kylie Lund [facility] CPT-96049 Level 4 Est. Patient 12:08:30 BIOMETRICS HEAD Hope cohn MD [facility] CPT-94948 Level 4 Est. Patient 19:08:42 BIOMETRICS HEAD Hope cohn MD PhD [facility] CPT-62445 Level 4 Est. Patient 20:04:51 CDT Hope cohn MD PhD [facility] CPT-14073 Level 3 New Patient 01:46:11 BIOMETRICS HEAD Hope landers MD PhD [facility] Procedures Code Procedure Name Date Entry Date Standard Desc ription CPT-J0897 Prolia 60 mg 15:46:54 BIOMETRICS HEAD CPT-79318 Abx/Therapy Injection 15:46:54 BIOMETRICS HEAD CPT-13240 Microalbumin - LAB USE ONLY 09:41:32 BIOMETRICS HEAD 20 23/01/15 CPT-98407 Free T4 - LAB USE ONLY 09:41:32 BIOMETRICS HEAD CPT-01805 TSH - LAB USE ONLY 09:41:32 BIOMETRICS HEAD CPT-45857 BMP - LAB USE ONLY 09:41:32 BIOMETRICS HEAD CPT-94327 Venipuncture Draw Fee 09:41:32 BIOMETRICS HEAD CPT-55086 First Vx - Ix admin for Medicare patients 11:19:30 CDT CPT-94456 Fluzone High-Dose Intramuscular Suspension 12/07 11:19:30 CDT CPT-J0897 Prolia 60 mg 14:55:42 CDT CPT-60475 Abx/Therapy Injection 14:55:42 CDT CPT-37166 Bone Density - XRAY USE ONLY 10:27:12 CDT 2 CPT-G0439 [facility] Annual Wellness Exam 17:54:53 CDT CPT-20376 Foot, left, comp min 3V - XRAY USE ONLY 12:22:49 CDT CPT-G0009 Administration of Pneumococcal Vaccine 3 12:18:00 CDT CPT-12504 Pneumovax 23 Injection Injectable 25 MCG /0.5ML 12:18:00 CDT CPT-J0897 Prolia 60 mg 14:14:16 BIOMETRICS HEAD CPT-58988 Abx/Therapy Injection 14:14:15 BIOMETRICS HEAD CPT-46209 Lipid - LAB USE ONLY 10:01:52 BIOMETRICS HEAD 2 CPT-80266 Calcium - LAB USE ONLY 10:01:51 BIOMETRICS HEAD CPT-85552 Venipuncture Draw Fee 10:01:51 BIOMETRICS HEAD CPT-LR Lesion Removal 16:22:01 BIOMETRICS HEAD CPT-27824 TSH - LAB USE ONLY 14:26:02 CDT CPT-20584 CMP - LAB USE ONLY 14:26:01 CDT CPT-08114 CBC with Diff - LAB USE ONLY 14:26:01 CDT 2 CPT-92534 Venipuncture Draw Fee 14:26:01 CDT CPT-24164 First Vx - Ix admin for Medicare patients 13:27:08 CDT CPT-53814 Fluzone High-Dose Intramuscular Suspension 11/26 13:27:08 CDT CPT-G0438 Initial Annual Wellness Exam 14:19:57 CD T CPT-G0009 Administration of Pneumococcal Vaccine 9 11:36:25 CDT CPT-17812 Prevnar 13 Intramuscular Suspension 1 1:36:25 CDT CPT-72075 Prevnar 13 Intramuscular Suspension 1 0:40:58 CDT CPT-J0897 Prolia 60 mg 10:37:16 CDT CPT-55107 Abx/Therapy Injection 10:37:16 CDT CPT-J0897 Prolia 60 mg 16:09:34 BIOMETRICS HEAD CPT-J0897 Prolia 60 mg 11:10:35 BIOMETRICS HEAD CPT-88632 Abx/Therapy Injection 11:10:35 BIOMETRICS HEAD CPT-000 Give Appropriate Flu Vaccine 17:01:15 BIOMETRICS HEAD 2 CPT-69158 Fluzone High Dose (65+) 15:03:08 BIOMETRICS HEAD 02/15 CPT-38566 Immunization Single Admin 15:03:08 BIOMETRICS HEAD 2014 CPT-OV Office Visit 15:58:06 CDT CPT-J0897 Prolia 60 mg 08:45:38 CDT CPT-48802 Abx/Therapy Injection 08:45:38 CDT CPT-J3420 Vitamin B12 1000mcg (Cyanocobalamin) 09:26:20 BIOMETRICS HEAD CPT-58576 Abx/Therapy Injection 09:26:20 BIOMETRICS HEAD CPT-J3420 Vitamin B12 1000mcg (Cyanocobalamin) 09:44:40 BIOMETRICS HEAD CPT-97944 Abx/Therapy Injection 09:44:40 BIOMETRICS HEAD CPT-J3420 Vitamin B12 1000mcg (Cyanocobalamin) 09:15:54 BIOMETRICS HEAD CPT-13325 Abx/Therapy Injection 09:15:54 BIOMETRICS HEAD CPT-J3420 Vitamin B12 1000mcg (Cyanocobalamin) 09:46:44 BIOMETRICS HEAD CPT-94202 Abx/Therapy Injection 09:46:44 BIOMETRICS HEAD CPT-J3420 Vitamin B12 1000mcg (Cyanocobalamin) 09:47:34 BIOMETRICS HEAD CPT-64299 Abx/Therapy Injection 09:47:34 BIOMETRICS HEAD CPT-J3420 Vitamin B12 1000mcg (Cyanocobalamin) 14:35:50 BIOMETRICS HEAD CPT-J3420 Vitamin B12 1000mcg (Cyanocobalamin) 09:25:05 BIOMETRICS HEAD CPT-47104 Abx/Therapy Injection 09:25:05 BIOMETRICS HEAD CPT-G0008 Administration of Influenza Virus Vaccine 13:36:47 CDT CPT-31475 Fluzone High-Dose Intramuscular Suspension 11/15 13:36:47 CDT CPT-J0897 Prolia 60 mg 08:50:41 CDT CPT-12878 Abx/Therapy Injection 08:50:41 CDT CPT-80214 Bone Density 12:06:12 CDT CPT-61002 Bone Density 08:54:40 CDT CPT-OV Office Visit 15:37:02 CDT CPT-44463 Postop F/U Visit 15:47:49 CDT CPT-73620 Postop F/U Visit 15:21:02 CDT CPT-[facility] Transitional Care Mgmt-High 07:52:27 CDT 20 20/06/01 CPT-22063 Venipuncture Draw Fee 13:51:18 CDT CPT-74699 Venipuncture Draw Fee 10:14:55 BIOMETRICS HEAD CPT-07797 Venipuncture Draw Fee 13:39:45 BIOMETRICS HEAD CPT-OV Office Visit 15:11:22 BIOMETRICS HEAD CPT-44925 Venipuncture Draw Fee 09:20:49 BIOMETRICS HEAD CPT-07257 Venipuncture Draw Fee 16:52:15 BIOMETRICS HEAD CPT-10390 Venipuncture Draw Fee 10:37:24 BIOMETRICS HEAD CPT-96225 Venipuncture Draw Fee 08:21:21 BIOMETRICS HEAD CPT-61023 Venipuncture Draw Fee 08:30:20 BIOMETRICS HEAD CPT-07540 Venipuncture Draw Fee 14:53:21 BIOMETRICS HEAD CPT-80171 Venipuncture Draw Fee 09:40:56 BIOMETRICS HEAD CPT-76419 Venipuncture Draw Fee 10:30:47 BIOMETRICS HEAD CPT-07867 Venipuncture Draw Fee 10:46:17 BIOMETRICS HEAD CPT-71690 Venipuncture Draw Fee 11:12:45 BIOMETRICS HEAD CPT-07480 Venipuncture Draw Fee 09:53:33 BIOMETRICS HEAD CPT-92995 Venipuncture Draw Fee 11:53:51 BIOMETRICS HEAD CPT-49490 Venipuncture Draw Fee 10:33:50 BIOMETRICS HEAD CPT-61523 Venipuncture Draw Fee 10:05:01 BIOMETRICS HEAD CPT-08101 Venipuncture Draw Fee 14:32:52 BIOMETRICS HEAD CPT-71708 Venipuncture Draw Fee 09:46:13 BIOMETRICS HEAD CPT-04295 Venipuncture Draw Fee 11:34:27 BIOMETRICS HEAD CPT-88485 Venipuncture Draw Fee 13:17:16 BIOMETRICS HEAD CPT-50319 Venipuncture Draw Fee 12:05:39 CDT CPT-44881 Venipuncture Draw Fee 12:49:12 CDT CPT-77398 Venipuncture Draw Fee 12:37:18 CDT CPT-24067 Venipuncture Draw Fee 10:57:11 CDT CPT-68350 Venipuncture Draw Fee 13:47:40 CDT CPT-60381 Venipuncture Draw Fee 10:02:17 CDT CPT-07488 TB Tubersol 17:32:32 CDT CPT-OV Office Visit 16:21:53 CDT CPT-OV Office Visit 15:49:22 CDT CPT-OV Office Visit 17:16:31 CDT CPT-OV Office Visit 10:43:31 CDT
--- OUTSIDE RECORDS SUMMARY | 2019-02-09 12:16 | XMS REPORT | Clinical Summary ---
Author Author Renaldo, Florecita Munoz Organization 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 Kelsy Mckeon RMA Carcinoma in situ of breast ADENOCARCINOMA, ASCENDING COLON 153.6 Correction 2012 Hope Benavidez MD PhD Malignant neoplasm of ascending colon Hyperkalemia 276.7 Resolved Hope Benavidez MD PhD Hyperpotassemia GERD 530.81 Active Hope Benavidez MD PhD Esophageal reflux Health maintenance exam V70.0 Resolved Adolfo Yates MD Routine general medical examination at a health care facility Anemia 285.9 Active Adam Yates MD Anemia, unspecified Personal history of malignant neoplasm [...] Benavidez MD PhD Diarrhea Diarrhea, functional 564.5 Active Kylie TELLEZ Functional diarrhea Osteoporosis 733.00 Active Hope Benavidez MD PhD Osteoporosis, unspecified Dysuria 788.1 Resolved Hope Benavidez MD PhD Dysuria Vitamin D deficiency 268.9 Active Hope Benavidez MD PhD Unspecified vitamin D deficiency Peripheral neuropathy 356.9 Active Hope Benavidez MD PhD Unspecified hereditary and idiopathic peripheral neuropathy Vitamin B12 deficiency 266.2 Active Citlaly Meff ord RMA Other B-complex deficiencies Adenocarcinoma, ascending colon 153.6 Active 2014 Kelsy Mckeon RMA Malignant neoplasm of ascending colon Sebaceous cyst, scalp 706.2 Resolved Kylie Holt DICTAPHONE TRANSCRIBER Sebaceous cyst Cervical lymphadenopathy, anterior, left 785.6 Active Kylie Holt DICTAPHONE TRANSCRIBER Enlargement of lymph nodes Need for prophylactic vaccination and inoculation against in fluenza V04.81 Active Citlaly Watkins RMA Need for prophylactic vaccination and inoculation against influenza Preventive health care V70.0 Active Kylie Lundoliver DICTAPHONE TRANSCRIBER Routine general medical examination at a health care facility ABDOMINAL PAIN, RIGHT LOWER QUADRANT ICD-789.03 Inactive Kina Joshua DICTAPHONE TRANSCRIBER ADENOCARCINOMA, COLON, 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 Dick Yates MD ABDOMINAL PAIN, GENERALIZED ICD-789.07 Inactive Hope Benavidez MD PhD FEVER UNSPECIFIED ICD-780.60 Inactive Hope cohn MD PhD UNSPECIFIED VENOUS INSUFFICIENCY ICD-459.81 [place] ctive Adam Yates MD ADENOCARCINOMA, 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 Inac tive Hope Benavidez MD PhD Hyperkalemia ICD-276.7 Inactive Hope Benavidez MD PhD Health maintenance exam ICD-V70.0 Bam Yates MD Weakness ICD-780.79 Inactive Hope Benavidez MD P hD Aftercare following surgery of the teeth,oral cavity a nd digestive system, NEC ICD-V58.75 Inactive Adam Yates MD Colon cancer ICD-153.9 Inactive Adam luna MD Asymptomatic postmenopausal status (age-related) (natural) I CD-V49.81 Inactive Hope Benavidez MD PhD Dysuria ICD-788.1 Inactive Hope Benavidez MD PhD 201 05/19/01 Sebaceous cyst, scalp ICD-706.2 Inactive Tracy hi Yokum DICTAPHONE TRANSCRIBER Medication List Medication Instructions Start Date Stop Date Generic Name NDC Status Provider Patient Instruction VITAMIN D3 2000 UNIT ORAL CAPS Melaleuca-One daily CHOLECALCIFEROL 42278978355 Active Kylie Yokum DICTAPHONE TRANSCRIBER Active PROBIOTIC DAILY ORAL CAPS Take one daily PROBIOTIC PRODUCT 25859323755 Active Kylie Yokum DICTAPHONE TRANSCRIBER Active IRON 325 (65 FE) MG TABS 1 every other day FERR OUS SULFATE 62148772400 No Longer Active Kylie Yokum DICTAPHONE TRANSCRIBER Active FLORANEX PACK 1 pack three times daily, for bowel health LACTOBACILLUS 34323757452 No Longer Active Kylie Yokum DICTAPHONE TRANSCRIBER Active LOMOTIL 2.5-0.025 MG TABS 1 tab by mouth prn 4 DIPHENOXYLATE-ATROPINE 27543772111 No Longer Active Kylie Yokum DICTAPHONE TRANSCRIBER Active MAGNESIUM GLUCONATE 250 MG TABS 1 tab tid 4 MAGNESIUM GLUCONATE 26770348059 No Longer Active Kylie Yokum DICTAPHONE TRANSCRIBER Active CYANOCOBALAMIN 1000 MCG/ML INJ SOLN 1 injection every 2 weeks 20 20/01/03 CYANOCOBALAMIN 92181289949 No Longer Active Kylie Yokum DICTAPHONE TRANSCRIBER Active ATENOLOL 25 MG ORAL TABS 1/2 pill by mouth daily, for headac hes, blood pressure ATENOLOL 60605659361 Active Kylie Yokum DICTAPHONE TRANSCRIBER Active PROPRANOLOL HCL 80 MG TABS 1 tab tue. and thur. 04 PROPRANOLOL HCL 02225186843 No Longer Active Hope Benavidez MD PhD A ctive VITAMIN D3 4000 IU 1 tab 3 times daily VITAMIN D3 4000 IU No Longer Active Hope Benavidez MD PhD Active BACTRIM DS 800-160 MG TABS 1 pill by mouth twice daily, for UTI SULFAMETHOXAZOLE-TRIMETHOPRIM 10602617237 No Longer Active A attila Benavidez MD PhD Active PROLIA 60 MG/ML SOLN 1 shot every 6 months for osteoprosis DENOSUMAB 46143431523 Active Hope Benavidez MD PhD Active CALCIUM + D + K 750-500-40 MG-UNT-MCG TABS 1 tab by mouth tw ice daily CALCIUM-VITAMIN D-VITAMIN K 75765165885 Active Hope landers MD PhD Active DAILY VALUE MULTIVITAMIN TABS 1 tab by mouth twice daily MULTIPLE VITAMIN 22458113100 Active Hope Benavidez MD PhD Active FISH OIL 306 MG CAPS 1 tab by mouth three times daily OMEGA-3 FATTY ACIDS 00315149216 Active Hope Benavidez MD PhD Active LUTEIN 10 MG TABS 1 tab daily LUTEIN 69194862758 Act cash Hope Benavidez MD PhD Active TRIAMTERENE-HCTZ 37.5-25 MG TABS 1 tab by mouth daily TRIAMTERENE-HCTZ 33151133305 Active Kylie Lundoliver ROMERON Active CYCLOBENZAPRINE HCL 10 MG TABS 1 tablet by mouth three times daily as needed for headaches CYCLOBENZAPRINE HCL 49673063935 No Longe r Active Adam Yates MD Active OMEPRAZOLE 20 MG CPDR 1 tablet by mouth daily for GERD OMEPRAZOLE 34714978536 No Longer Active Adam Yates MD A ctive ZOFRAN 8 MG TABS 1 tab by mouth every 12 hours prn 201 05/16/09 ONDANSETRON HCL 93111726351 No Longer Active Adam Yates MD Active PHENADOZ 25 MG SUPP 1 every 4 hrs. PRN PROMETHA ZINE HCL 91466305296 No Longer Active Adam Yates MD Active POTASSIUM CHLORIDE 20 MEQ PACK by mouth twice a day prn POTASSIUM CHLORIDE 64113361312 No Longer Active Adam Yates MD Active PROMETHAZINE HCL 25 MG TABS 1 Q. 4 hr. PRN PROM ETHAZINE HCL 60734588984 No Longer Active Adam Yates MD Active INNOPRAN XL 120 MG [id number] Take one by mouth daily 2 PROPRANOLOL HCL SR BEADS 51288481458 No Longer Active Adam Yates MD A ctive FLAGYL 500 MG TABS 1 pill by mouth three times daily, for diarrh ea METRONIDAZOLE 15853587474 No Longer Active Hope Benavidez MD PhD Active DYAZIDE 37.5-25 MG CAPS 1 qd TRIAMTERENE-HC TZ 56542764622 No Longer Active Hope Benavidez MD PhD Active PROZAC 20 MG CAPS 1 q d FLUOXETINE HCL 15511 907182 No Longer Active Hope Benavidez MD PhD Active SIMVASTATIN 40 MG TABS 1 qd SIMVASTATIN 004 96889832 No Longer Active Adam Yates MD Active MELOXICAM 15 MG TABS 1 qd MELOXICAM 9193814 2048 No Longer Active Adam Yates MD Active IMODIUM A-D 2 MG TABS 2 onset at diarrhea and prn. LOPERAMIDE HCL 70702678590 Active Hope Benavidez MD PhD Active EXCEDRIN EXTRA STRENGTH 250-250-65 MG TABS 1-2 q6h PRN headache 201 04/16/21 [id number] 67378440653 Active Hope Benavidez MD PhD Active FLAGYL 500 MG TABS 1 qid METRONIDAZOLE 05326 329467 No Longer Active Adam Yates MD Active LEVAQUIN 750 MG TABS 1 qd LEVOFLOXACIN 5486 9989108 No Longer Active Adam Yates MD Active ADULT ASPIRIN LOW STRENGTH 81 MG TBDP 1 qd A SPIRIN 83320758267 Active Hope Benavidez MD PhD Active LEVAQUIN 750 MG TABS 1 qd LEVAQUIN 750 MG T ABS 598677 LEVOFLOXACIN Inactive FLAGYL 500 MG TABS 1 qid FLAGYL 500 MG TABS 312792 METRONIDAZOLE Inactive MELOXICAM 15 MG TABS 1 qd MELOXICAM 15 MG T ABS 270442 MELOXICAM Inactive SIMVASTATIN 40 MG TABS 1 qd SIMVASTATIN 40 MG TABS 574982 SIMVASTATIN Inactive PROZAC 20 MG CAPS 1 q d PROZAC 20 MG CAPS 31 0385 FLUOXETINE HCL Inactive DYAZIDE 37.5-25 MG CAPS 1 qd DYAZIDE 37.5 -25 MG CAPS 400232 TRIAMTERENE-HCTZ Inactive INNOPRAN XL 120 MG [id number] Take one by mouth daily 2 INNOPRAN XL 120 MG [id number] PROPRANOLOL HCL SR BEADS Inactive PROMETHAZINE HCL 25 MG TABS 1 Q. 4 hr. PRN PROMETHAZINE HCL 25 MG TABS 813367 PROMETHAZINE HCL Inactive POTASSIUM CHLORIDE 20 MEQ PACK by mouth twice a day prn POTASSIUM CHLORIDE 20 MEQ PACK 945076 POTASSIUM CHLORIDE Inactive PHENADOZ 25 MG SUPP 1 every 4 hrs. PRN PHENADOZ 2 5 MG SUPP 942883 PROMETHAZINE HCL Inactive ZOFRAN 8 MG TABS 1 tab by mouth every 12 hours prn 201 05/16/09 ZOFRAN 8 MG TABS 342011 ONDANSETRON HCL Inactive OMEPRAZOLE 20 MG CPDR 1 tablet by mouth daily for GERD OMEPRAZOLE 20 MG CPDR 233522 OMEPRAZOLE Inactive CYCLOBENZAPRINE HCL 10 MG TABS 1 tablet by mouth three times daily as needed for headaches CYCLOBENZAPRINE HCL 10 MG TABS 103015 CYCLOBENZAPRINE HCL Inactive VITAMIN D3 4000 IU 1 tab 3 times daily VITAMIN D3 4000 IU Inactive PROPRANOLOL HCL 80 MG TABS 1 tab tue. and thur. 04/10 PROPRANOLOL HCL 80 MG TABS 751672 PROPRANOLOL HCL Inactive CYANOCOBALAMIN 1000 MCG/ML INJ SOLN 1 injection every 2 weeks 20 20/01/03 CYANOCOBALAMIN 1000 MCG/ML INJ SOLN 931440 CYANOCOBALAM IN Inactive MAGNESIUM GLUCONATE 250 MG TABS 1 tab tid 4 MAGNESIUM GLUCONATE 250 MG TABS 937726 MAGNESIUM GLUCONATE Inactive LOMOTIL 2.5-0.025 MG TABS 1 tab by mouth prn 4 LOMOTIL 2.5- 0.025 MG TABS 6701265 DIPHENOXYLATE-ATROPINE Inactive FLORANEX PACK 1 pack three times daily, for bowel health FLORANEX PACK LACTOBACILLUS Inactive IRON 325 (65 FE) MG TABS 1 every other day IRON 325 (65 FE) MG TABS 104876 FERROUS SULFATE Inactive FLAGYL 500 MG TABS 1 pill by mouth three times daily, for diarrh ea FLAGYL 500 MG TABS 368506 METRONIDAZOLE Inactive BACTRIM DS 800-160 MG TABS 1 pill by mouth twice daily, for UTI BACTRIM DS 800-160 MG TABS 676812 SULFAMETHOXAZOLE-TRIM ETHOPRIM Inactive Advance Directives Directive Description [...] BP dobson blood pressure, systolic - 8480-6 132 mm[Hg] BP sys pulse rate E&M - 8867-4 66 /min H eart rate temperature E&M 97.9 [degF] Body temp erature weight E&M - 3141-9 143.5 [lb_av] Weigh t Measured blood pressure, diastolic - 8462-4 62 mm[Hg] BP dobson blood pressure, systolic - 8480-6 120 mm[Hg] BP sys pulse rate E&M - 8867-4 65 /min H eart rate temperature E&M 98.2 [degF] Body temp erature weight E&M - 3141-9 142.3 [lb_av] Weigh t Measured Diagnostic Results Date Name Value Unit Range Description Lab Report: Calcium - Chemistry calcium, serum 8.7 mg/dL 8.5-10.1 Lab Report: CBC W/DIFF, Comp. Metabolic Panel - Chemistry sodium, serum 142 mmol/L 305-311 1630/04/20 carbon dioxide, venous blood 34.7 mmol/L 21.0-32 .0 potassium, serum 3.5 mmol/L 3.5-5.2 chloride, serum 102 mmol/L 98-107 blood glucose 102 mg/dL 65-110 urea nitrogen, blood 24 mg/dL 7-18 creatinine, serum 1.37 mg/dL 0.55-1.30 alanine aminotransferase (SGPT), serum 72 U/L 12-78 aspartate aminotransferase (SGOT), serum 44 U/L 15-37 calcium, serum 9.0 mg/dL 8.5-10.1 bilirubin, serum, total 0.50 mg/dL 0.00-1.00 sodium, serum 138 mmol/L 729-115 6976/10/23 carbon dioxide, venous blood 29.5 mmol/L 21.0-32 .0 potassium, serum 3.7 mmol/L 3.5-5.2 chloride, serum 100 mmol/L 98-107 blood glucose 93 mg/dL 65-110 urea nitrogen, blood 29 mg/dL 7-18 creatinine, serum 1.25 mg/dL 0.55-1.30 alanine aminotransferase (SGPT), serum 50 U/L 12-78 aspartate aminotransferase (SGOT), serum 34 U/L 15-37 calcium, serum 9.5 mg/dL 8.5-10.1 bilirubin, serum, total 0.40 mg/dL 0.00-1.00 Lab Report: CBC W/DIFF, Comp. Metabolic Panel - Hematology leukocyte count, blood 5.5 10^3/MM^3 10*3/mm3 4.6-10.2 neutrophils as percent of blood leukocytes 54.5 % 42.2-75.2 monocytes as percent of blood leukocytes 7.4 % 1.7-9.3 lymphocytes as percent of blood leukocytes 34.5 % 20.5-51.1 erythrocyte (RBC) count 4.39 10^6/MM^3 10*6/mm3 4.04-5.4 8 hemoglobin, blood 14.9 g/dL 12.0-16.0 hematocrit, blood 43.1 % 36.0-46.0 mean corpuscular volume, RBC 98 fL 80-97 mean corpuscular hemoglobin, RBC 33.9 pg 27. 0-31.2 mean corpuscular hemoglobin concentration, RBC 34.5 G/DL % 31.8-35.4 red blood cell distribution width 12.9 % 11 .6-14.8 platelet count 189 10^3/MM^3 10*3/mm3 859-901 8822/04/20 leukocyte count, blood 5.9 10^3/MM^3 10*3/mm3 4.6-10.2 [...] count 204 10^3/MM^3 10*3/mm3 142-424 Lab Report: CEA - Serology carcinoembryonic antigen 0.9 ng/mL carcinoembryonic antigen 1.1 ng/mL Lab Report: Lipid Panel, MICROALBUMIN, T hyroid Stimulating Hormone (L) - Chemistry albumin/creatinine ratio, urine < 30 mg/g mg/g{creat} 0-2 9 TSH 1.24 m[iU]/mL 0.36-3.74 cholesterol, serum 227 mg/dL 228-658 1185/10/23 triglyceride, serum, fasting 144 mg/dL 30-200 HDL cholesterol, serum 60 mg/dL 32-96 LDL cholesterol, serum 138 mg/dL 0-130 Lab Report: Lipid Panel, MICROALBUMIN, T hyroid Stimulating Hormone (L) - Lab microalbumin, urine 10 0-19 Encounters Code Encounter Date Provider Facility CPT-56189 Level 3 Est. Patient 13:15:54 CDT Kylie Lund [facility] CPT-94679 Level 3 Est. Patient 09:10:11 CDT Kylie Lund [facility] CPT-81165 Level 4 Est. Patient 12:08:30 COMPUTER NUMERIC CONTROL SETTER Hope cohn MD [facility] CPT-19320 Level 4 Est. Patient 19:08:42 COMPUTER NUMERIC CONTROL SETTER Hope cohn MD [facility] CPT-65309 Level 4 Est. Patient 20:04:51 CDT Hope cohn MD [facility] CPT-15838 Level 3 New Patient 01:46:11 COMPUTER NUMERIC CONTROL SETTER Hope landers MD PhD [facility] Procedures Code Procedure Name Date Entry Date Standard Desc ription CPT-G0009 Administration of Pneumococcal Vaccine 9 11:36:25 CDT CPT-45649 Prevnar 13 Intramuscular Suspension 1 1:36:25 CDT CPT-49243 Prevnar 13 Intramuscular Suspension 1 0:40:58 CDT CPT-J0897 Prolia 60 mg 10:37:16 CDT CPT-32679 Abx/Therapy Injection 10:37:16 CDT CPT-J0897 Prolia 60 mg 16:09:34 COMPUTER [employer]ERIC CONTROL SETTER CPT-J0897 Prolia 60 mg 11:10:35 COMPUTER [employer]ERIC CONTROL SETTER CPT-35286 Abx/Therapy Injection 11:10:35 COMPUTER NUMERIC CONTROL SETTER CPT-000 Give Appropriate Flu Vaccine 17:01:15 COMPUTER NUMERIC CONTROL SETTER 2 CPT-16465 Fluzone High Dose (65+) 15:03:08 COMPUTER NUMERIC CONTROL SETTER 02/15 CPT-45135 Immunization Single Admin 15:03:08 COMPUTER NUMERIC CONTROL SETTER 2014 CPT-OV Office Visit 15:58:06 CDT CPT-J0897 Prolia 60 mg 08:45:38 CDT CPT-34214 Abx/Therapy Injection 08:45:38 CDT CPT-J3420 Vitamin B12 1000mcg (Cyanocobalamin) 09:26:20 COMPUTER NUMERIC CONTROL SETTER CPT-30964 Abx/Therapy Injection 09:26:20 COMPUTER NUMERIC CONTROL SETTER CPT-J3420 Vitamin B12 1000mcg (Cyanocobalamin) 09:44:40 COMPUTER NUMERIC CONTROL SETTER CPT-26034 Abx/Therapy Injection 09:44:40 COMPUTER NUMERIC CONTROL SETTER CPT-J3420 Vitamin B12 1000mcg (Cyanocobalamin) 09:15:54 COMPUTER NUMERIC CONTROL SETTER CPT-41113 Abx/Therapy Injection 09:15:54 COMPUTER NUMERIC CONTROL SETTER CPT-J3420 Vitamin B12 1000mcg (Cyanocobalamin) 09:46:44 COMPUTER NUMERIC CONTROL SETTER CPT-15784 Abx/Therapy Injection 09:46:44 COMPUTER NUMERIC CONTROL SETTER CPT-J3420 Vitamin B12 1000mcg (Cyanocobalamin) 09:47:34 COMPUTER NUMERIC CONTROL SETTER CPT-15885 Abx/Therapy Injection 09:47:34 COMPUTER NUMERIC CONTROL SETTER CPT-J3420 Vitamin B12 1000mcg (Cyanocobalamin) 14:35:50 COMPUTER NUMERIC CONTROL SETTER CPT-J3420 Vitamin B12 1000mcg (Cyanocobalamin) 09:25:05 COMPUTER NUMERIC CONTROL SETTER CPT-97942 Abx/Therapy Injection 09:25:05 COMPUTER NUMERIC CONTROL SETTER CPT-G0008 Administration of Influenza Virus Vaccine 13:36:47 CDT CPT-32520 Fluzone High-Dose Intramuscular Suspension 11/15 13:36:47 CDT CPT-J0897 Prolia 60 mg 08:50:41 CDT CPT-34135 Abx/Therapy Injection 08:50:41 CDT CPT-76646 Bone Density 12:06:12 CDT CPT-69573 Bone Density 08:54:40 CDT CPT-OV Office Visit 15:37:02 CDT CPT-90276 Postop F/U Visit 15:47:49 CDT CPT-28555 Postop F/U Visit 15:21:02 CDT CPT-TCMH Transitional Care Mgmt-High 07:52:27 CDT 20 20/06/01 CPT-32441 Venipuncture Draw Fee 13:51:18 CDT CPT-40310 Venipuncture Draw Fee 10:14:55 COMPUTER [employer]ERIC CONTROL SETTER CPT-49380 Venipuncture Draw Fee 13:39:45 COMPUTER NUMERIC CONTROL SETTER CPT-OV Office Visit 15:11:22 COMPUTER NUMERIC CONTROL SETTER CPT-97106 Venipuncture Draw Fee 09:20:49 COMPUTER NUMERIC CONTROL SETTER CPT-61008 Venipuncture Draw Fee 16:52:15 COMPUTER NUMERIC CONTROL SETTER CPT-39610 Venipuncture Draw Fee 10:37:24 COMPUTER NUMERIC CONTROL SETTER CPT-16853 Venipuncture Draw Fee 08:21:21 COMPUTER NUMERIC CONTROL SETTER CPT-64641 Venipuncture Draw Fee 08:30:20 COMPUTER NUMERIC CONTROL SETTER CPT-66213 Venipuncture Draw Fee 14:53:21 COMPUTER NUMERIC CONTROL SETTER CPT-09027 Venipuncture Draw Fee 09:40:56 COMPUTER NUMERIC CONTROL SETTER CPT-41132 Venipuncture Draw Fee 10:30:47 COMPUTER NUMERIC CONTROL SETTER CPT-96803 Venipuncture Draw Fee 10:46:17 COMPUTER NUMERIC CONTROL SETTER CPT-32475 Venipuncture Draw Fee 11:12:45 COMPUTER NUMERIC CONTROL SETTER CPT-97502 Venipuncture Draw Fee 09:53:33 COMPUTER NUMERIC CONTROL SETTER CPT-47605 Venipuncture Draw Fee 11:53:51 COMPUTER NUMERIC CONTROL SETTER CPT-26618 Venipuncture Draw Fee 10:33:50 COMPUTER NUMERIC CONTROL SETTER CPT-76814 Venipuncture Draw Fee 10:05:01 COMPUTER NUMERIC CONTROL SETTER CPT-20731 Venipuncture Draw Fee 14:32:52 COMPUTER NUMERIC CONTROL SETTER CPT-04310 Venipuncture Draw Fee 09:46:13 COMPUTER NUMERIC CONTROL SETTER CPT-18679 Venipuncture Draw Fee 11:34:27 COMPUTER NUMERIC CONTROL SETTER CPT-19892 Venipuncture Draw Fee 13:17:16 COMPUTER NUMERIC CONTROL SETTER CPT-20174 Venipuncture Draw Fee 12:05:39 CDT CPT-57718 Venipuncture Draw Fee 12:49:12 CDT CPT-64621 Venipuncture Draw Fee 12:37:18 CDT CPT-42129 Venipuncture Draw Fee 10:57:11 CDT CPT-60819 Venipuncture Draw Fee 13:47:40 CDT CPT-39719 Venipuncture Draw Fee 10:02:17 CDT CPT-96149 TB Tubersol 17:32:32 CDT CPT-OV Office Visit 16:21:53 CDT CPT-OV Office Visit 15:49:22 CDT CPT-OV Office Visit 17:16:31 CDT CPT-OV Office Visit 10:43:31 CDT
--- OUTSIDE RECORDS SUMMARY | 2019-02-09 12:16 | XMS REPORT | Clinical Summary ---
Author Author Renaldo, Florecita Munoz Organization [facility] [employer] Address Unknown Phone Unavailable Allergies, Adverse Reactions, [...] PhD Hyperpotassemia GERD 530.81 Resolved Kylie Yokum SVP Esophageal reflux Health maintenance exam V70.0 Resolved Adolfo Yates MD Routine general medical examination at a health care facility Anemia 285.9 Resolved Kylie Holt SVP Anemia, unspecified Personal history of malignant neoplasm of large intestine V10.05 Active Adam Yates MD Personal history of malignant neoplasm of large intestine Hypomagnesemia 275.2 Resolved Kylie Holt SVP Disorders of magnesium metabolism Weakness 780.79 Resolved [...] Sebaceous cyst, scalp 706.2 Resolved Kylie Yokum SVP Sebaceous cyst Cervical lymphadenopathy, anterior, left 785.6 Resolv ed Kylie Yokum SVP Enlargement of lymph nodes Need for prophylactic vaccination and inoculation against in fluenza V04.81 Resolved Adam Yates MD Need for prophylactic vaccination and inoculation against influenza Preventive health care V70.0 Active Kylie Yokum SVP Routine general medical examination at a health care facility Thyroid nodule, left 241.0 Active Kylie Yokum A PRN Nontoxic uninodular goiter Screening mammogram V76.12 Active Kylie Yokum AP RN Other screening mammogram Mandy 706.2 Resolved Kylie Yokum SVP Sebaceous cyst Colon cancer, ascending 153.6 Resolved Kylie Yok um SVP Malignant neoplasm of ascending colon Foot pain, left 729.5 Active 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 Pain in limb Splinter 919.6 Active Kylie Yokum SVP Superficial foreign body (splinter) of other, multiple, and unspecified sites, without major open wound and without mention of infection Rash 782.1 Active Kylie Yokum SVP R aurora and other nonspecific skin eruption Cyst 706.2 Active Kylie Yokum SVP S ebaceous cyst ABDOMINAL PAIN, RIGHT LOWER QUADRANT ICD-789.03 Inactive Kina Joshua SVP ADENOCARCINOMA, COLON, 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 Dick Yates MD ABDOMINAL PAIN, GENERALIZED ICD-789.07 Inactive Hope Benavidez MD PhD FEVER UNSPECIFIED ICD-780.60 Inactive Hope cohn MD PhD UNSPECIFIED VENOUS INSUFFICIENCY ICD-459.81 [place] ctive Adam Yates MD ADENOCARCINOMA, 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 Inac tive Hope Benavidez MD PhD Hyperkalemia ICD-276.7 Inactive Hope Benavidez MD PhD GERD ICD-530.81 Inactive Kylieshubham Holt SVP 2015 Health maintenance exam ICD-V70.0 Bam Yates MD Anemia ICD-285.9 Inactive Kylieshubham Holt SVP 07/24 Hypomagnesemia ICD-275.2 Inactive Kylie Holt SVP Weakness ICD-780.79 Inactive Hope Benavidez MD P Aftercare following surgery of the teeth,oral cavity a nd digestive system, NEC ICD-V58.75 Inactive Adam Yates MD Colon cancer ICD-153.9 Inactive Adam luna MD Asymptomatic postmenopausal status (age-related) (natural) I CD-V49.81 Inactive Hope Benavidez MD PhD Diarrhea, functional ICD-564.5 Inactive Selena Yatse MD Dysuria ICD-788.1 Inactive Hope Benavidez MD PhD 201 05/19/01 Adenocarcinoma, ascending colon ICD-153.6 Inac tive Adam Yates MD Sebaceous cyst, scalp ICD-706.2 Inactive Tracy Holt SVP Cervical lymphadenopathy, anterior, left ICD-785.6 Inactive Kylie Lundum SVP Need for prophylactic vaccination and inoculation against in fluenza ICD-V04.81 Inactive Adam Yates MD Mandy ICD-706.2 Inactive Kylie Lundum SVP 07/20 Colon cancer, ascending ICD-153.6 Inactive Bravo Holt SVP Medication List Medication Instructions Start Date Stop Date Generic Name NDC Status Provider Patient Instruction VOLTAREN 1 % TRANSDERMAL GEL apply q 6-8 hour to left arm as needed for pain DICLOFENAC SODIUM 45054939010 Active Kylie Holt AMY Active COQ10 100 MG ORAL CAPSULE 1 daily COENZYME Q10 887734 38683 Active LETY Nation Active VITAMIN D3 2000 UNIT ORAL CAPSULE Melaleuca-One daily CHOLECALCIFEROL 31231701550 Active Kylie Holt APRN Active PROBIOTIC DAILY ORAL CAPSULE Take one daily PROBIO TIC PRODUCT 47175990471 Active Kylie Holt AMY Active IRON 325 (65 Fe) MG ORAL TABLET 1 every other day FERROUS SULFATE 35261140515 No Longer Active Kylie Holt AMY Active FLORANEX ORAL PACKET 1 pack three times daily, for bowel health LACTOBACILLUS 97036958611 No Longer Active Kylie Holt SVP Active LOMOTIL 2.5-0.025 MG ORAL TABLET 1 tab by mouth prn 23/10/23 DIPHENOXYLATE-ATROPINE 15459548420 No Longer Active Kylie Lundum SVP Active MAGNESIUM GLUCONATE 250 MG ORAL TABLET 1 tab tid 23/10/23 MAGNESIUM GLUCONATE 08212930036 No Longer Active Kylie Lundum SVP Active CYANOCOBALAMIN 1000 MCG/ML INJECTION SOLUTION 1 injection ev ruben 2 weeks CYANOCOBALAMIN 59595805222 No Longer Active Kylie Lund um SVP Active ATENOLOL 25 MG ORAL TABLET 1/2 pill by mouth daily, fo r headaches, blood pressure ATENOLOL 61245199507 Active Kylie Lundum SVP Active PROPRANOLOL HCL 80 MG ORAL TABLET 1 tab tue. and thur. PROPRANOLOL HCL 43498132709 No Longer Active Hope Benavidez MD PhD A ctive VITAMIN D3 4000 IU 1 tab 3 times daily VITAMIN D3 4000 IU No Longer Active Hope Benavidez MD PhD Active BACTRIM DS 800-160 MG ORAL TABLET 1 pill by mouth twice claudio y, for UTI SULFAMETHOXAZOLE-TRIMETHOPRIM 96934627193 No Longer Active Hope Benavidez MD PhD Active PROLIA 60 MG/ML SUBCUTANEOUS SOLUTION 1 shot every 6 months for osteoprosis DENOSUMAB 07084102689 Active Hope Benavidez MD PhD Active CALCIUM + D + K 750-500-40 MG-UNT-MCG ORAL TABLET 1 tab by m out twice daily CALCIUM-VITAMIN D-VITAMIN K 40978735413 Active Hope valdez MD PhD Active DAILY VALUE MULTIVITAMIN ORAL TABLET 1 tab by mouth twice daily 201 05/16/14 MULTIPLE VITAMIN 59966616815 Active Hope Benavidez MD PhD Acti ve FISH OIL 306 MG CAPS 1 tab by mouth three times daily OMEGA-3 FATTY ACIDS 05402821902 Active Hope Benavidez MD PhD Active LUTEIN 10 MG ORAL TABLET 1 tab daily LUTEIN 37210286 408 Active Hope Benavidez MD PhD Active TRIAMTERENE-HCTZ 37.5-25 MG ORAL TABLET 1 tab by mouth daily 10/22 TRIAMTERENE-HCTZ 63673369556 Active LETY Rossi Activ e CYCLOBENZAPRINE HCL 10 MG ORAL TABLET 1 tablet by mout h three times daily as needed for headaches CYCLOBENZAPRINE HCL 06057984869 No Longer Active Adam Yates MD Active OMEPRAZOLE 20 MG ORAL CAPSULE DELAYED RELEASE 1 tablet by [facility] daily for GERD OMEPRAZOLE 69165376106 No Longer Active Adam Yates MD Active ZOFRAN 8 MG ORAL TABLET 1 tab by mouth every 12 hours prn 4 ONDANSETRON HCL 06845468806 No Longer Active Adam Yates MD Active PHENADOZ 25 MG RECTAL SUPPOSITORY 1 every 4 hrs. PRN 2 PROMETHAZINE HCL 90103446537 No Longer Active Adam Yates MD A ctive POTASSIUM CHLORIDE 20 MEQ ORAL PACKET by mouth twice a day prn 2 POTASSIUM CHLORIDE 97664575888 No Longer Active Adam Carpenter MD Active PROMETHAZINE HCL 25 MG ORAL TABLET 1 Q. 4 hr. PRN PROMETHAZINE HCL 28991378889 No Longer Active Adam Yates MD Active INNOPRAN XL 120 MG ORAL CAPSULE EXTENDED RELEASE 24 HO UR Take one by mouth daily PROPRANOLOL HCL SR BEADS 82184759255 No Longer Active Adam Yates MD Active FLAGYL 500 MG ORAL TABLET 1 pill by mouth three times daily, for diarrhea METRONIDAZOLE 33231247557 No Longer Active Hope landers MD PhD Active DYAZIDE 37.5-25 MG ORAL CAPSULE 1 qd TRIA MTERENE-HCTZ 30004714164 No Longer Active Hope Benavidez MD PhD Active PROZAC 20 MG ORAL CAPSULE 1 q d FLUOXETINE HCL 33647919267 No Longer Active Hope Benavidez MD PhD Active SIMVASTATIN 40 MG ORAL TABLET 1 qd SIMVAS TATIN 93128875766 No Longer Active Adam Yates MD Active MELOXICAM 15 MG ORAL TABLET 1 qd MELOXICAM 58987966110 No Longer Active Adam Yates MD Active IMODIUM A-D 2 MG ORAL TABLET 2 onset at diarrhea and prn. LOPERAMIDE HCL 41654852489 Active Hope Benavidez MD PhD Active EXCEDRIN EXTRA STRENGTH 250-250-65 MG ORAL TABLET 1-2 q6h AR N headache [id number] 63376340954 Active Hope Benavidez MD PhD Active FLAGYL 500 MG ORAL TABLET 1 qid METRONIDAZOL E 79307138846 No Longer Active Adam Yates MD Active LEVAQUIN 750 MG ORAL TABLET 1 qd LEVOFLOXAC IN 19878544601 No Longer Active Adam Yates MD Active ADULT ASPIRIN LOW STRENGTH 81 MG ORAL TABLET DISINTEGRATING 1 qd ASPIRIN 37970289649 Active Hope Benavidez MD PhD Active LEVAQUIN 750 MG ORAL TABLET 1 qd LEVAQUIN 750 MG ORAL TABLET 390021 LEVOFLOXACIN Inactive FLAGYL 500 MG ORAL TABLET 1 qid FLAGYL 500 MG ORAL TABLET 805258 METRONIDAZOLE Inactive MELOXICAM 15 MG ORAL TABLET 1 qd MELOXICAM 15 MG ORAL TABLET 604830 MELOXICAM Inactive SIMVASTATIN 40 MG ORAL TABLET 1 qd SIMVASTATIN 40 MG ORAL TABLET 446961 SIMVASTATIN Inactive PROZAC 20 MG ORAL CAPSULE 1 q d PROZAC 20 MG ORAL CAPSULE 970567 FLUOXETINE HCL Inactive DYAZIDE 37.5-25 MG ORAL CAPSULE 1 qd 5 DYAZIDE 37.5-25 MG ORAL CAPSULE 393217 TRIAMTERENE-HCTZ Inactive INNOPRAN XL 120 MG ORAL CAPSULE EXTENDED RELEASE 24 HO UR Take one by mouth daily INNOPRAN XL 120 MG ORAL CAPSULE EXTENDED RELEASE 24 HOUR PROPRANOLOL HCL SR BEADS Inactive PROMETHAZINE HCL 25 MG ORAL TABLET 1 Q. 4 hr. PRN 2013 PROMETHAZINE HCL 25 MG ORAL TABLET 910921 PROMETHAZINE HCL Inactive POTASSIUM CHLORIDE 20 MEQ ORAL PACKET by mouth twice a day prn 2 POTASSIUM CHLORIDE 20 MEQ ORAL PACKET 7274863 POTASSIUM CHLORIDE Inactive PHENADOZ 25 MG RECTAL SUPPOSITORY 1 every 4 hrs. PRN 2 PHENADOZ 25 MG RECTAL SUPPOSITORY 419793 PROMETHAZINE HCL Inactive ZOFRAN 8 MG ORAL TABLET 1 tab by mouth every 12 hours prn 4 ZOFRAN 8 MG ORAL TABLET 779905 ONDANSETRON HCL Inactive OMEPRAZOLE 20 MG ORAL CAPSULE DELAYED RELEASE 1 tablet by mo uth daily for GERD OMEPRAZOLE 20 MG ORAL CAPSULE DELAYED RELEASE 19 8051 OMEPRAZOLE Inactive CYCLOBENZAPRINE HCL 10 MG ORAL TABLET 1 tablet by mout h three times daily as needed for headaches CYCLOBENZAPRINE HCL 10 MG ORAL TABLET 599628 CYCLOBENZAPRINE HCL Inactive VITAMIN D3 4000 IU 1 tab 3 times daily VITAMIN D3 4000 IU Inactive PROPRANOLOL HCL 80 MG ORAL TABLET 1 tab tue. and thur. PROPRANOLOL HCL 80 MG ORAL TABLET 231906 PROPRANOLOL HCL Inacti ve CYANOCOBALAMIN 1000 MCG/ML INJECTION SOLUTION 1 injection ev ruben 2 weeks CYANOCOBALAMIN 1000 MCG/ML INJECTION SOLUTION 30 9594 CYANOCOBALAMIN Inactive MAGNESIUM GLUCONATE 250 MG ORAL TABLET 1 tab tid 23/10/23 MAGNESIUM GLUCONATE 250 MG ORAL TABLET 897930 MAGNESIUM GLUCONATE Inactive LOMOTIL 2.5-0.025 MG ORAL TABLET 1 tab by mouth prn 20 23/10/23 LOMOTIL 2.5-0.025 MG ORAL TABLET 6840676 DIPHENOXYLATE-ATROPINE Inac tive FLORANEX ORAL PACKET 1 pack three times daily, for bowel health FLORANEX ORAL PACKET LACTOBACILLUS Inactive IRON 325 (65 Fe) MG ORAL TABLET 1 every other day 2015 IRON 325 (65 Fe) MG ORAL TABLET 972336 FERROUS SULFATE Inactive FLAGYL 500 MG ORAL TABLET 1 pill by mouth three times daily, for diarrhea FLAGYL 500 MG ORAL TABLET 810941 METRONIDAZOLE I nactive BACTRIM DS 800-160 MG ORAL TABLET 1 pill by mouth twice claudio y, for UTI BACTRIM DS 800-160 MG ORAL TABLET 189155 SULFAMETHOXAZOLE-TRIMETHOPRIM Inactive Advance Directives Directive Description Start [...] ... - Chemistry sodium, serum 138 mmol/L 057-251 7172/12/15 potassium, serum 4.0 mmol/L 3.5-5.2 chloride, serum [...] 11 .0-15.0 platelet count 157 THOUSAND/UL 10*3/mm3 104-325 1359/04/20 mean platelet volume 8.9 fL 7.5-12.5 Lab Report: CEA - Serology carcinoembryonic antigen 0.9 ng/mL Lab Report: Comp. Metabolic Panel - Chem istry sodium, serum 142 mmol/L 012-522 7811/04/19 carbon dioxide, venous blood 30.2 mmol/L 21.0-32 [...] 0.00-1.00 Encounters Code Encounter Date Provider Facility CPT-89273 Level 3 Est. Patient 08:15:24 SNAP ATTACHER Kylie Lund [facility] CPT-56367 Level 2 Est. Patient 14:27:16 SNAP ATTACHER [facility]14[facility] Level 3 Est. Patient 17:54:48 CDT Kylie Lund [facility] CPT-77259 Level 3 Est. Patient 16:26:30 CDT Kina blackmon [facility] CPT-51220 Level 3 New Patient 16:22:01 SNAP ATTACHER Adam Yates MD [facility] CPT-68866 Level 4 Est. Patient 17:00:48 CDT [facility] Level 3 Est. Patient 13:15:54 CDT Kylie Lund [facility] CPT-90736 Level 3 Est. Patient 09:10:11 CDT Kylie Lund [facility] CPT-02395 Level 4 Est. Patient 12:08:30 SNAP ATTACHER Hope cohn MD [facility] CPT-03084 Level 4 Est. Patient 19:08:42 SNAP ATTACHER Hope cohn MD [facility] CPT-69582 Level 4 Est. Patient 20:04:51 CDT Hope cohn MD [facility] CPT-35330 Level 3 New Patient 01:46:11 SNAP ATTACHER Hope landers MD [facility] Procedures Code Procedure Name Date Entry Date Standard Desc ription CPT-28182 Venipuncture Draw Fee 10:59:04 CDT CPT-13196 CMP - LAB USE ONLY 10:59:04 CDT CPT-59155 CBC with Diff - LAB USE ONLY 10:59:03 CDT 2 CPT-J0897 Prolia 60 mg 15:46:54 SNAP ATTACHER CPT-68927 Abx/Therapy Injection 15:46:54 SNAP ATTACHER CPT-67026 Microalbumin - LAB USE ONLY 09:41:32 SNAP ATTACHER 20 23/01/15 CPT-42755 Free T4 - LAB USE ONLY 09:41:32 SNAP ATTACHER CPT-73542 TSH - LAB USE ONLY 09:41:32 SNAP ATTACHER CPT-84080 BMP - LAB USE ONLY 09:41:32 SNAP ATTACHER CPT-43315 Venipuncture Draw Fee 09:41:32 SNAP ATTACHER CPT-85610 First Vx - Ix admin for Medicare patients 11:19:30 CDT CPT-14025 Fluzone High-Dose Intramuscular Suspension 12/07 11:19:30 CDT CPT-J0897 Prolia 60 mg 14:55:42 CDT CPT-65278 Abx/Therapy Injection 14:55:42 CDT CPT-47567 Bone Density - XRAY USE ONLY 10:27:12 CDT 2 CPT-G0439 Subsequent Annual Wellness Exam 17:54:53 CDT CPT-08138 Foot, left, comp min 3V - XRAY USE ONLY 12:22:49 CDT CPT-G0009 Administration of Pneumococcal Vaccine 3 12:18:00 CDT CPT-93485 Pneumovax 23 Injection Injectable 25 MCG /0.5ML 12:18:00 CDT CPT-J0897 Prolia 60 mg 14:14:16 SNAP ATTACHER CPT-36737 Abx/Therapy Injection 14:14:15 SNAP ATTACHER CPT-29239 Lipid - LAB USE ONLY 10:01:52 SNAP ATTACHER 2 CPT-31606 Calcium - LAB USE ONLY 10:01:51 SNAP ATTACHER CPT-40316 Venipuncture Draw Fee 10:01:51 SNAP ATTACHER CPT-LR Lesion Removal 16:22:01 SNAP ATTACHER CPT-64160 TSH - LAB USE ONLY 14:26:02 CDT CPT-13246 CMP - LAB USE ONLY 14:26:01 CDT CPT-09309 CBC with Diff - LAB USE ONLY 14:26:01 CDT 2 CPT-47671 Venipuncture Draw Fee 14:26:01 CDT CPT-52461 First Vx - Ix admin for Medicare patients 13:27:08 CDT CPT-81478 Fluzone High-Dose Intramuscular Suspension 11/26 13:27:08 CDT CPT-G0438 Initial Annual Wellness Exam 14:19:57 CD T CPT-G0009 Administration of Pneumococcal Vaccine 9 11:36:25 CDT CPT-19629 Prevnar 13 Intramuscular Suspension 1 1:36:25 CDT CPT-88200 Prevnar 13 Intramuscular Suspension 1 0:40:58 CDT CPT-J0897 Prolia 60 mg 10:37:16 CDT CPT-73547 Abx/Therapy Injection 10:37:16 CDT CPT-J0897 Prolia 60 mg 16:09:34 SNAP ATTACHER CPT-J0897 Prolia 60 mg 11:10:35 SNAP ATTACHER CPT-63712 Abx/Therapy Injection 11:10:35 SNAP ATTACHER CPT-000 Give Appropriate Flu Vaccine 17:01:15 SNAP ATTACHER 2 CPT-27816 Fluzone High Dose (65+) 15:03:08 SNAP ATTACHER 02/15 CPT-92549 Immunization Single Admin 15:03:08 SNAP ATTACHER 2014 CPT-OV Office Visit 15:58:06 CDT CPT-J0897 Prolia 60 mg 08:45:38 CDT CPT-58987 Abx/Therapy Injection 08:45:38 CDT CPT-J3420 Vitamin B12 1000mcg (Cyanocobalamin) 09:26:20 SNAP ATTACHER CPT-51693 Abx/Therapy Injection 09:26:20 SNAP ATTACHER CPT-J3420 Vitamin B12 1000mcg (Cyanocobalamin) 09:44:40 SNAP ATTACHER CPT-40688 Abx/Therapy Injection 09:44:40 SNAP ATTACHER CPT-J3420 Vitamin B12 1000mcg (Cyanocobalamin) 09:15:54 SNAP ATTACHER CPT-52554 Abx/Therapy Injection 09:15:54 SNAP ATTACHER CPT-J3420 Vitamin B12 1000mcg (Cyanocobalamin) 09:46:44 SNAP ATTACHER CPT-98082 Abx/Therapy Injection 09:46:44 SNAP ATTACHER CPT-J3420 Vitamin B12 1000mcg (Cyanocobalamin) 09:47:34 SNAP ATTACHER CPT-70004 Abx/Therapy Injection 09:47:34 SNAP ATTACHER CPT-J3420 Vitamin B12 1000mcg (Cyanocobalamin) 14:35:50 SNAP ATTACHER CPT-J3420 Vitamin B12 1000mcg (Cyanocobalamin) 09:25:05 SNAP ATTACHER CPT-75575 Abx/Therapy Injection 09:25:05 SNAP ATTACHER CPT-G0008 Administration of Influenza Virus Vaccine 13:36:47 CDT CPT-69215 Fluzone High-Dose Intramuscular Suspension 11/15 13:36:47 CDT CPT-J0897 Prolia 60 mg 08:50:41 CDT CPT-69378 Abx/Therapy Injection 08:50:41 CDT CPT-73744 Bone Density 12:06:12 CDT CPT-51993 Bone Density 08:54:40 CDT CPT-OV Office Visit 15:37:02 CDT CPT-75903 Postop F/U Visit 15:47:49 CDT CPT-60682 Postop F/U Visit 15:21:02 CDT CPT-TCMH Transitional Care Mgmt-High 07:52:27 CDT 20 20/06/01 CPT-27911 Venipuncture Draw Fee 13:51:18 CDT CPT-19936 Venipuncture Draw Fee 10:14:55 SNAP ATTACHER CPT-47135 Venipuncture Draw Fee 13:39:45 SNAP ATTACHER CPT-OV Office Visit 15:11:22 SNAP ATTACHER CPT-82400 Venipuncture Draw Fee 09:20:49 SNAP ATTACHER CPT-88008 Venipuncture Draw Fee 16:52:15 SNAP ATTACHER CPT-82731 Venipuncture Draw Fee 10:37:24 SNAP ATTACHER CPT-45080 Venipuncture Draw Fee 08:21:21 SNAP ATTACHER CPT-68217 Venipuncture Draw Fee 08:30:20 SNAP ATTACHER CPT-39575 Venipuncture Draw Fee 14:53:21 SNAP ATTACHER CPT-12031 Venipuncture Draw Fee 09:40:56 SNAP ATTACHER CPT-62775 Venipuncture Draw Fee 10:30:47 SNAP ATTACHER CPT-46341 Venipuncture Draw Fee 10:46:17 SNAP ATTACHER CPT-32828 Venipuncture Draw Fee 11:12:45 SNAP ATTACHER CPT-16052 Venipuncture Draw Fee 09:53:33 SNAP ATTACHER CPT-57485 Venipuncture Draw Fee 11:53:51 SNAP ATTACHER CPT-37728 Venipuncture Draw Fee 10:33:50 SNAP ATTACHER CPT-39772 Venipuncture Draw Fee 10:05:01 SNAP ATTACHER CPT-63527 Venipuncture Draw Fee 14:32:52 SNAP ATTACHER CPT-68470 Venipuncture Draw Fee 09:46:13 SNAP ATTACHER CPT-17969 Venipuncture Draw Fee 11:34:27 SNAP ATTACHER CPT-08322 Venipuncture Draw Fee 13:17:16 SNAP ATTACHER CPT-25888 Venipuncture Draw Fee 12:05:39 CDT CPT-63696 Venipuncture Draw Fee 12:49:12 CDT CPT-75796 Venipuncture Draw Fee 12:37:18 CDT CPT-21370 Venipuncture Draw Fee 10:57:11 CDT CPT-55851 Venipuncture Draw Fee 13:47:40 CDT CPT-40118 Venipuncture Draw Fee 10:02:17 CDT CPT-26626 TB Tubersol 17:32:32 CDT CPT-OV Office Visit 16:21:53 CDT CPT-OV Office Visit 15:49:22 CDT CPT-OV Office Visit 17:16:31 CDT CPT-OV Office Visit 10:43:31 CDT
--- OUTSIDE RECORDS SUMMARY | 2019-02-09 12:16 | XMS REPORT | Clinical Summary ---
Author Author Admin, Florecita Munoz Organization [facility] [employer] Address Unknown Phone Unavailable Allergies, Adverse Reactions, [...] Sebaceous cyst, scalp 706.2 Resolved Kylie Yokum MEDICATION RECONCILIATION TECHNICIAN Sebaceous cyst Cervical lymphadenopathy, anterior, left 785.6 Resolv ed Kylie Yokum MEDICATION RECONCILIATION TECHNICIAN Enlargement of lymph nodes Need for prophylactic vaccination and inoculation against in fluenza V04.81 Resolved Adam Yates MD Need for prophylactic vaccination and inoculation against influenza Preventive health care V70.0 Resolved Kylie Yoku m MEDICATION RECONCILIATION TECHNICIAN Routine general medical examination at a health care facility Thyroid nodule, left 241.0 Active Kylie Yokum A PRN Nontoxic uninodular goiter Screening mammogram V76.12 Resolved Kylie Yokum A PRN Other screening mammogram Mandy 706.2 Resolved Kylie Yokum MEDICATION RECONCILIATION TECHNICIAN Sebaceous cyst Colon cancer, ascending 153.6 Resolved Kylie Yok um MEDICATION RECONCILIATION TECHNICIAN Malignant neoplasm of ascending colon Foot pain, left 729.5 Resolved Kylie Yokum MEDICATION RECONCILIATION TECHNICIAN Pain in limb Splinter 919.6 Resolved Kylie Yokum MEDICATION RECONCILIATION TECHNICIAN Superficial foreign body (splinter) of other, multiple, and unspecified sites, without major open wound and without mention of infection Rash 782.1 Resolved Kylie Yokum MEDICATION RECONCILIATION TECHNICIAN Rash and other nonspecific skin eruption Cyst 706.2 Resolved Kylie Yokum MEDICATION RECONCILIATION TECHNICIAN Sebaceous cyst Body Mass Index 23.0-23.9 Adult Active Kylie Yokum MEDICATION RECONCILIATION TECHNICIAN Body Mass Index between 19-24, adult Unspecified fall, initial encounter E888.9 Inactive Kylie Holt MEDICATION RECONCILIATION TECHNICIAN Unspecified fall Eye pain, left 379.91 Inactive Kylie Holt MEDICATION RECONCILIATION TECHNICIAN Pain in or around eye Pharyngitis, acute 074.0 Active Kylie Holt APR N Herpangina ADENOCARCINOMA, COLON, 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 Dick Yates MD ABDOMINAL PAIN, RIGHT LOWER QUADRANT ICD-789.03 Inactive Kina Joshua MEDICATION RECONCILIATION TECHNICIAN UNSPECIFIED VENOUS INSUFFICIENCY ICD-459.81 [place] ctive Adam Yates MD ADENOCARCINOMA, 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 Inac tive Hope Benavidez MD PhD Hyperkalemia ICD-276.7 Inactive Hope Benavidez MD PhD GERD ICD-530.81 Inactive Kylie Holt MEDICATION RECONCILIATION TECHNICIAN 2015 Health maintenance exam ICD-V70.0 Bam Yates MD Anemia ICD-285.9 Inactive Kylie Holt MEDICATION RECONCILIATION TECHNICIAN 07/24 ABDOMINAL PAIN, GENERALIZED ICD-789.07 Inactive Hope Benavidez MD PhD FEVER UNSPECIFIED ICD-780.60 Inactive Hope cohn MD PhD Aftercare following surgery of the teeth,oral cavity a nd digestive system, NEC ICD-V58.75 Inactive Adam Yates MD Colon cancer ICD-153.9 Inactive Adam luna MD Asymptomatic postmenopausal status (age-related) (natural) I CD-V49.81 Inactive Hope Benavidez MD PhD Hypomagnesemia ICD-275.2 Inactive Kylie Yokum MEDICATION RECONCILIATION TECHNICIAN Weakness ICD-780.79 Inactive Hope Benavidez MD P hD Dysuria ICD-788.1 Inactive Hope Benavidez MD PhD 201 05/19/01 Adenocarcinoma, ascending colon ICD-153.6 Inac tive Adam Yates MD Sebaceous cyst, scalp ICD-706.2 Inactive Tracy hi Yokum MEDICATION RECONCILIATION TECHNICIAN Cervical lymphadenopathy, anterior, left ICD-785.6 Inactive Kylie Yokum MEDICATION RECONCILIATION TECHNICIAN Need for prophylactic vaccination and inoculation against in fluenza ICD-V04.81 Inactive Adam Yates MD Diarrhea, functional ICD-564.5 Inactive Selena Yates MD Screening mammogram ICD-V76.12 Inactive Kylie Yokum MEDICATION RECONCILIATION TECHNICIAN Mandy ICD-706.2 Inactive Kylie Yokum MEDICATION RECONCILIATION TECHNICIAN 07/20 Colon cancer, ascending ICD-153.6 Inactive K athi Yokum MEDICATION RECONCILIATION TECHNICIAN Foot pain, left ICD-729.5 Inactive Kylie Yokum MEDICATION RECONCILIATION TECHNICIAN Splinter ICD-919.6 Inactive Kylie Yokum MEDICATION RECONCILIATION TECHNICIAN 2017 Rash ICD-782.1 Inactive Kylie Yokum MEDICATION RECONCILIATION TECHNICIAN 07/25 Cyst ICD-706.2 Inactive Kylie Yokum MEDICATION RECONCILIATION TECHNICIAN 08/11 Unspecified fall, initial encounter ICD-E888.9 Inactive Kylie Holt MEDICATION RECONCILIATION TECHNICIAN Eye pain, left ICD-379.91 Inactive Kylie Holt MEDICATION RECONCILIATION TECHNICIAN Preventive health care ICD-V70.0 Inactive Fiorella Holt MEDICATION RECONCILIATION TECHNICIAN Medication List Medication Instructions Start Date Stop Date Generic Name NDC Status Provider Patient Instruction IMODIUM A-D 2 MG ORAL TABLET 1 tablet twice a day LOPERAMIDE HCL 56807137644 Active Kylie Holt APRN Active VOLTAREN 1 % TRANSDERMAL GEL apply q 6-8 hour to left arm as needed for pain DICLOFENAC SODIUM 77562299054 Active Kylie Holt APRN Active COQ10 100 MG ORAL CAPSULE 1 daily COENZYME Q10 819294 76394 Active LETY Nation Active VITAMIN D3 2000 UNIT ORAL CAPSULE [place]ale[place]-One daily CHOLECALCIFEROL 69485973150 Active Kylie Holt APRN Active PROBIOTIC DAILY ORAL CAPSULE Take one daily PROBIO TIC PRODUCT 64217493737 Active Kylie Holt APRN Active IRON 325 (65 Fe) MG ORAL TABLET 1 every other day FERROUS SULFATE 85179498057 No Longer Active Kylie Holt APRN Active FLORANEX ORAL PACKET 1 pack three times daily, for bowel health LACTOBACILLUS 18026235137 No Longer Active Kylie Holt APRN Active LOMOTIL 2.5-0.025 MG ORAL TABLET 1 tab by mouth prn 23/10/23 DIPHENOXYLATE-ATROPINE 66318997061 No Longer Active Kylie Holt APRN Active MAGNESIUM GLUCONATE 250 MG ORAL TABLET 1 tab tid 23/10/23 MAGNESIUM GLUCONATE 54439918632 No Longer Active Kylie Holt APRN Active CYANOCOBALAMIN 1000 MCG/ML INJECTION SOLUTION 1 injection ev ruben 2 weeks CYANOCOBALAMIN 91392490156 No Longer Active Kylie Yok um MEDICATION RECONCILIATION TECHNICIAN Active ATENOLOL 25 MG ORAL TABLET 1/2 pill by mouth daily, fo r headaches, blood pressure ATENOLOL 88646697035 Active Kylie Holt MEDICATION RECONCILIATION TECHNICIAN Active PROPRANOLOL HCL 80 MG ORAL TABLET 1 tab tue. and thur. PROPRANOLOL HCL 27444409015 No Longer Active Hope Benavidez MD PhD A ctive VITAMIN D3 4000 IU 1 tab 3 times daily VITAMIN D3 4000 IU No Longer Active Hope Benavidez MD PhD Active BACTRIM DS 800-160 MG ORAL TABLET 1 pill by mouth twice claudio y, for UTI SULFAMETHOXAZOLE-TRIMETHOPRIM 77215655942 No Longer Active Hope Benavidez MD PhD Active PROLIA 60 MG/ML SUBCUTANEOUS SOLUTION 1 shot every 6 months for osteoprosis DENOSUMAB 16305605920 Active Hope Benavidez MD PhD Active CALCIUM + D + K 750-500-40 MG-UNT-MCG ORAL TABLET 1 tab by m out twice daily CALCIUM-VITAMIN D-VITAMIN K 57423611950 Active Hope valdez MD PhD Active DAILY VALUE MULTIVITAMIN ORAL TABLET 1 tab by mouth twice daily 201 05/16/14 MULTIPLE VITAMIN 39460540518 Active Hope Benavidez MD PhD Acti ve FISH OIL 306 MG CAPS 1 tab by mouth three times daily OMEGA-3 FATTY ACIDS 66864979878 Active Hope Benavidez MD PhD Active LUTEIN 10 MG ORAL TABLET 1 tab daily LUTEIN 91583189 408 Active Hope Benavidez MD PhD Active TRIAMTERENE-HCTZ 37.5-25 MG ORAL TABLET 1 tab by mouth daily 10/22 TRIAMTERENE-HCTZ 22455855505 Active Kylie Escalonagabbioliver MEDICATION RECONCILIATION TECHNICIAN Active CYCLOBENZAPRINE HCL 10 MG ORAL TABLET 1 tablet by mout h three times daily as needed for headaches CYCLOBENZAPRINE HCL 13869440138 No Longer Active Adam Yates MD Active OMEPRAZOLE 20 MG ORAL CAPSULE DELAYED RELEASE 1 tablet by mo uth daily for GERD OMEPRAZOLE 01622891868 No Longer Active Adam Yates MD Active ZOFRAN 8 MG ORAL TABLET 1 tab by mouth every 12 hours prn 4 ONDANSETRON HCL 73142090373 No Longer Active Adam Yates MD Active PHENADOZ 25 MG RECTAL SUPPOSITORY 1 every 4 hrs. PRN 2 PROMETHAZINE HCL 46507504670 No Longer Active Adam Yates MD A ctive POTASSIUM CHLORIDE 20 MEQ ORAL PACKET by mouth twice a day prn 2 POTASSIUM CHLORIDE 71468875351 No Longer Active Adam Carpenter MD Active PROMETHAZINE HCL 25 MG ORAL TABLET 1 Q. 4 hr. PRN PROMETHAZINE HCL 61405460273 No Longer Active Adam Yates MD Active INNOPRAN XL 120 MG ORAL CAPSULE EXTENDED RELEASE 24 HO UR Take one by mouth daily PROPRANOLOL HCL SR BEADS 74217171392 No Longer Active Adam Yates MD Active FLAGYL 500 MG ORAL TABLET 1 pill by mouth three times daily, for diarrhea METRONIDAZOLE 53875318952 No Longer Active Hope landers MD PhD Active DYAZIDE 37.5-25 MG ORAL CAPSULE 1 qd TRIA MTERENE-HCTZ 91757530796 No Longer Active Hope Benavidez MD PhD Active PROZAC 20 MG ORAL CAPSULE 1 q d FLUOXETINE HCL 89593207200 No Longer Active Hope Benavidez MD PhD Active SIMVASTATIN 40 MG ORAL TABLET 1 qd SIMVAS TATIN 01710144926 No Longer Active Adam Yates MD Active MELOXICAM 15 MG ORAL TABLET 1 qd MELOXICAM 17273096413 No Longer Active Adam Yates MD Active EXCEDRIN EXTRA STRENGTH 250-250-65 MG ORAL TABLET 1-2 q6h MS N headache [id number] 97501494822 Active Hope Benavidez MD PhD Active FLAGYL 500 MG ORAL TABLET 1 qid METRONIDAZOL E 11870072052 No Longer Active Adam Yates MD Active LEVAQUIN 750 MG ORAL TABLET 1 qd LEVOFLOXAC IN 19692301759 No Longer Active Adam Yates MD Active ADULT ASPIRIN LOW STRENGTH 81 MG ORAL TABLET DISINTEGRATING 1 qd ASPIRIN 63862865852 Active Hope Benavidez MD PhD Active LEVAQUIN 750 MG ORAL TABLET 1 qd LEVAQUIN 750 MG ORAL TABLET 090848 LEVOFLOXACIN Inactive FLAGYL 500 MG ORAL TABLET 1 qid FLAGYL 500 MG ORAL TABLET 105571 METRONIDAZOLE Inactive MELOXICAM 15 MG ORAL TABLET 1 qd MELOXICAM 15 MG ORAL TABLET 320550 MELOXICAM Inactive SIMVASTATIN 40 MG ORAL TABLET 1 qd SIMVASTATIN 40 MG ORAL TABLET 443273 SIMVASTATIN Inactive PROZAC 20 MG ORAL CAPSULE 1 q d PROZAC 20 MG ORAL CAPSULE 540663 FLUOXETINE HCL Inactive DYAZIDE 37.5-25 MG ORAL CAPSULE 1 qd 5 DYAZIDE 37.5-25 MG ORAL CAPSULE 198824 TRIAMTERENE-HCTZ Inactive INNOPRAN XL 120 MG ORAL CAPSULE EXTENDED RELEASE 24 HO UR Take one by mouth daily INNOPRAN XL 120 MG ORAL CAPSULE EXTENDED RELEASE 24 HOUR PROPRANOLOL HCL SR BEADS Inactive PROMETHAZINE HCL 25 MG ORAL TABLET 1 Q. 4 hr. PRN 2013 PROMETHAZINE HCL 25 MG ORAL TABLET 204439 PROMETHAZINE HCL Inactive POTASSIUM CHLORIDE 20 MEQ ORAL PACKET by mouth twice a day prn 2 POTASSIUM CHLORIDE 20 MEQ ORAL PACKET 4392240 POTASSIUM CHLORIDE Inactive PHENADOZ 25 MG RECTAL SUPPOSITORY 1 every 4 hrs. PRN 2 PHENADOZ 25 MG RECTAL SUPPOSITORY 112180 PROMETHAZINE HCL Inactive ZOFRAN 8 MG ORAL TABLET 1 tab by mouth every 12 hours prn 4 ZOFRAN 8 MG ORAL TABLET 217844 ONDANSETRON HCL Inactive OMEPRAZOLE 20 MG ORAL CAPSULE DELAYED RELEASE 1 tablet by [facility] daily for GERD OMEPRAZOLE 20 MG ORAL CAPSULE DELAYED RELEASE 19 8051 OMEPRAZOLE Inactive CYCLOBENZAPRINE HCL 10 MG ORAL TABLET 1 tablet by mout h three times daily as needed for headaches CYCLOBENZAPRINE HCL 10 MG ORAL TABLET 970175 CYCLOBENZAPRINE HCL Inactive VITAMIN D3 4000 IU 1 tab 3 times daily VITAMIN D3 4000 IU Inactive PROPRANOLOL HCL 80 MG ORAL TABLET 1 tab tue. and thur. PROPRANOLOL HCL 80 MG ORAL TABLET 212793 PROPRANOLOL HCL Inacti ve CYANOCOBALAMIN 1000 MCG/ML INJECTION SOLUTION 1 injection ev ruben 2 weeks CYANOCOBALAMIN 1000 MCG/ML INJECTION SOLUTION 30 9594 CYANOCOBALAMIN Inactive MAGNESIUM GLUCONATE 250 MG ORAL TABLET 1 tab tid 23/10/23 MAGNESIUM GLUCONATE 250 MG ORAL TABLET 350684 MAGNESIUM GLUCONATE Inactive LOMOTIL 2.5-0.025 MG ORAL TABLET 1 tab by mouth prn 23/10/23 LOMOTIL 2.5-0.025 MG ORAL TABLET 5184416 DIPHENOXYLATE-ATROPINE Inac tive FLORANEX ORAL PACKET 1 pack three times daily, for bowel health FLORANEX ORAL PACKET 33872168526 LACTOBACILLUS Inactive IRON 325 (65 Fe) MG ORAL TABLET 1 every other day 2015 IRON 325 (65 Fe) MG ORAL TABLET 564760 FERROUS SULFATE Inactive FLAGYL 500 MG ORAL TABLET 1 pill by mouth three times daily, for diarrhea FLAGYL 500 MG ORAL TABLET 975061 METRONIDAZOLE I nactive BACTRIM DS 800-160 MG ORAL TABLET 1 pill by mouth twice claudio y, for UTI BACTRIM DS 800-160 MG ORAL TABLET 430762 SULFAMETHOXAZOLE-TRIMETHOPRIM Inactive Advance Directives Directive Description Start [...] ... - Chemistry sodium, serum 138 mmol/L 437-026 8338/12/15 potassium, serum 4.0 mmol/L 3.5-5.2 chloride, serum [...] microalbumin, urine 10 mg/L 0-19 Lab Report: CEA - Serology carcinoembryonic antigen 0.6 ng/mL Lab Report: Comp. Metabolic Panel - Chem istry sodium, serum 142 mmol/L 447-618 7167/04/19 carbon dioxide, venous blood 30.2 mmol/L 21.0-32 [...] mg/dL Encounters Code Encounter Date Provider Facility CPT-36340 [id number] Vst-Est Level III 14:29:19 CDT Fiorella Holt [facility] [place] CPT-65815 Level 2 Est. Patient 14:58:26 CDT Kylie uLnd [facility] [place] [facility] [place] CPT-15830 Level 3 Est. Patient 08:15:24 ESCAPEMENT MAKER Kylie Lund [facility] [place] [facility] [place] CPT-86991 Level 2 Est. Patient 14:27:16 ESCAPEMENT MAKER Kylie Lund [facility] [place] [facility] [place] CPT-95204 Level 3 Est. Patient 17:54:48 CDT Kylie Escalonagabbi [facility] [place] [facility] [place] CPT-30430 Level 3 Est. Patient 16:26:30 CDT Kina Terry blackmon [facility] CPT-33531 Level 3 New Patient 16:22:01 ESCAPEMENT MAKER Adam Yates MD [facility] CPT-06059 Level 4 Est. Patient 17:00:48 CDT Kylie Lund [facility] [place] [facility] [place] CPT-99132 Level 3 Est. Patient 13:15:54 CDT Kylie Lund [facility] CPT-13801 Level 3 Est. Patient 09:10:11 CDT Kylie Kevon [facility] CPT-58537 Level 4 Est. Patient 12:08:30 ESCAPEMENT MAKER Hope cohn MD PhD [facility] [place] CPT-24357 Level 4 Est. Patient 19:08:42 ESCAPEMENT MAKER Hope cohn MD PhD [facility] [place] CPT-20951 Level 4 Est. Patient 20:04:51 CDT Hope cohn MD PhD [facility] [place] CPT-07688 Level 3 New Patient 01:46:11 ESCAPEMENT MAKER Hope landers MD PhD [facility] [place] Procedures Code Procedure Name Date Entry Date Standard Desc ription CPT-G0439 [facility] Annual Wellness Exam 14:29:19 CDT CPT-35506 Venipuncture Draw Fee 10:59:04 CDT CPT-76156 CMP - LAB USE ONLY 10:59:04 CDT CPT-31440 CBC with Diff - LAB USE ONLY 10:59:03 CDT 2 CPT-J0897 Prolia 60 mg 15:46:54 ESCAPEMENT MAKER CPT-43222 Abx/Therapy Injection 15:46:54 ESCAPEMENT MAKER CPT-83181 Microalbumin - LAB USE ONLY 09:41:32 ESCAPEMENT MAKER 20 23/01/15 CPT-03174 Free T4 - LAB USE ONLY 09:41:32 ESCAPEMENT MAKER CPT-43281 TSH - LAB USE ONLY 09:41:32 ESCAPEMENT MAKER CPT-55229 BMP - LAB USE ONLY 09:41:32 ESCAPEMENT MAKER CPT-76841 Venipuncture Draw Fee 09:41:32 ESCAPEMENT MAKER CPT-91429 First Vx - Ix admin for Medicare patients 11:19:30 CDT CPT-77296 Fluzone High-Dose Intramuscular Suspension 12/07 11:19:30 CDT CPT-J0897 Prolia 60 mg 14:55:42 CDT CPT-44822 Abx/Therapy Injection 14:55:42 CDT CPT-67726 Bone Density - XRAY USE ONLY 10:27:12 CDT 2 CPT-G0439 Subsequent Annual Wellness Exam 17:54:53 CDT CPT-83103 Foot, left, comp min 3V - XRAY USE ONLY 12:22:49 CDT CPT-G0009 Administration of Pneumococcal Vaccine 3 12:18:00 CDT CPT-35618 Pneumovax 23 Injection Injectable 25 MCG /0.5ML 12:18:00 CDT CPT-J0897 Prolia 60 mg 14:14:16 ESCAPEMENT MAKER CPT-47464 Abx/Therapy Injection 14:14:15 ESCAPEMENT MAKER CPT-90895 Lipid - LAB USE ONLY 10:01:52 ESCAPEMENT MAKER 2 CPT-89352 Calcium - LAB USE ONLY 10:01:51 ESCAPEMENT MAKER CPT-26633 Venipuncture Draw Fee 10:01:51 ESCAPEMENT MAKER CPT-LR Lesion Removal 16:22:01 ESCAPEMENT MAKER CPT-00406 TSH - LAB USE ONLY 14:26:02 CDT CPT-59804 CMP - LAB USE ONLY 14:26:01 CDT CPT-26903 CBC with Diff - LAB USE ONLY 14:26:01 CDT 2 CPT-35454 Venipuncture Draw Fee 14:26:01 CDT CPT-75376 First Vx - Ix admin for Medicare patients 13:27:08 CDT CPT-79170 Fluzone High-Dose Intramuscular Suspension 11/26 13:27:08 CDT CPT-G0438 Initial Annual Wellness Exam 14:19:57 CD T CPT-G0009 Administration of Pneumococcal Vaccine 9 11:36:25 CDT CPT-76079 Prevnar 13 Intramuscular Suspension 1 1:36:25 CDT CPT-67781 Prevnar 13 Intramuscular Suspension 1 0:40:58 CDT CPT-J0897 Prolia 60 mg 10:37:16 CDT CPT-50000 Abx/Therapy Injection 10:37:16 CDT CPT-J0897 Prolia 60 mg 16:09:34 ESCAPEMENT MAKER CPT-J0897 Prolia 60 mg 11:10:35 ESCAPEMENT MAKER CPT-34947 Abx/Therapy Injection 11:10:35 ESCAPEMENT MAKER CPT-000 Give Appropriate Flu Vaccine 17:01:15 ESCAPEMENT MAKER 2 CPT-96951 Fluzone High Dose (65+) 15:03:08 ESCAPEMENT MAKER 02/15 CPT-20376 Immunization Single Admin 15:03:08 ESCAPEMENT MAKER 2014 CPT-OV Office Visit 15:58:06 CDT CPT-J0897 Prolia 60 mg 08:45:38 CDT CPT-56217 Abx/Therapy Injection 08:45:38 CDT CPT-J3420 Vitamin B12 1000mcg (Cyanocobalamin) 09:26:20 ESCAPEMENT MAKER CPT-04660 Abx/Therapy Injection 09:26:20 ESCAPEMENT MAKER CPT-J3420 Vitamin B12 1000mcg (Cyanocobalamin) 09:44:40 ESCAPEMENT MAKER CPT-69697 Abx/Therapy Injection 09:44:40 ESCAPEMENT MAKER CPT-J3420 Vitamin B12 1000mcg (Cyanocobalamin) 09:15:54 ESCAPEMENT MAKER CPT-49463 Abx/Therapy Injection 09:15:54 ESCAPEMENT MAKER CPT-J3420 Vitamin B12 1000mcg (Cyanocobalamin) 09:46:44 ESCAPEMENT MAKER CPT-77551 Abx/Therapy Injection 09:46:44 ESCAPEMENT MAKER CPT-J3420 Vitamin B12 1000mcg (Cyanocobalamin) 09:47:34 ESCAPEMENT MAKER CPT-17180 Abx/Therapy Injection 09:47:34 ESCAPEMENT MAKER CPT-J3420 Vitamin B12 1000mcg (Cyanocobalamin) 14:35:50 ESCAPEMENT MAKER CPT-J3420 Vitamin B12 1000mcg (Cyanocobalamin) 09:25:05 ESCAPEMENT MAKER CPT-07277 Abx/Therapy Injection 09:25:05 ESCAPEMENT MAKER CPT-G0008 Administration of Influenza Virus Vaccine 13:36:47 CDT CPT-41438 Fluzone High-Dose Intramuscular Suspension 11/15 13:36:47 CDT CPT-J0897 Prolia 60 mg 08:50:41 CDT CPT-46535 Abx/Therapy Injection 08:50:41 CDT CPT-59834 Bone Density 12:06:12 CDT CPT-34315 Bone Density 08:54:40 CDT CPT-OV Office Visit 15:37:02 CDT CPT-50209 Postop F/U Visit 15:47:49 CDT CPT-41507 Postop F/U Visit 15:21:02 CDT CPT-[facility] Transitional Care Mgmt-High 07:52:27 CDT 20 20/06/01 CPT-62428 Venipuncture Draw Fee 13:51:18 CDT CPT-47333 Venipuncture Draw Fee 10:14:55 ESCAPEMENT MAKER CPT-39195 Venipuncture Draw Fee 13:39:45 ESCAPEMENT MAKER CPT-OV Office Visit 15:11:22 ESCAPEMENT MAKER CPT-53672 Venipuncture Draw Fee 09:20:49 ESCAPEMENT MAKER CPT-52996 Venipuncture Draw Fee 16:52:15 ESCAPEMENT MAKER CPT-08176 Venipuncture Draw Fee 10:37:24 ESCAPEMENT MAKER CPT-81907 Venipuncture Draw Fee 08:21:21 ESCAPEMENT MAKER CPT-58474 Venipuncture Draw Fee 08:30:20 ESCAPEMENT MAKER CPT-65973 Venipuncture Draw Fee 14:53:21 ESCAPEMENT MAKER CPT-39916 Venipuncture Draw Fee 09:40:56 ESCAPEMENT MAKER CPT-07868 Venipuncture Draw Fee 10:30:47 ESCAPEMENT MAKER CPT-33113 Venipuncture Draw Fee 10:46:17 ESCAPEMENT MAKER CPT-39838 Venipuncture Draw Fee 11:12:45 ESCAPEMENT MAKER CPT-89464 Venipuncture Draw Fee 09:53:33 ESCAPEMENT MAKER CPT-40041 Venipuncture Draw Fee 11:53:51 ESCAPEMENT MAKER CPT-16645 Venipuncture Draw Fee 10:33:50 ESCAPEMENT MAKER CPT-63396 Venipuncture Draw Fee 10:05:01 ESCAPEMENT MAKER CPT-07993 Venipuncture Draw Fee 14:32:52 ESCAPEMENT MAKER CPT-54821 Venipuncture Draw Fee 09:46:13 ESCAPEMENT MAKER CPT-10025 Venipuncture Draw Fee 11:34:27 ESCAPEMENT MAKER CPT-44439 Venipuncture Draw Fee 13:17:16 ESCAPEMENT MAKER CPT-10234 Venipuncture Draw Fee 12:05:39 CDT CPT-92871 Venipuncture Draw Fee 12:49:12 CDT CPT-37139 Venipuncture Draw Fee 12:37:18 CDT CPT-65422 Venipuncture Draw Fee 10:57:11 CDT CPT-37979 Venipuncture Draw Fee 13:47:40 CDT CPT-37516 Venipuncture Draw Fee 10:02:17 CDT CPT-24802 TB Tubersol 17:32:32 CDT CPT-OV Office Visit 16:21:53 CDT CPT-OV Office Visit 15:49:22 CDT CPT-OV Office Visit 17:16:31 CDT CPT-OV Office Visit 10:43:31 CDT
--- OUTSIDE RECORDS SUMMARY | 2019-02-09 12:16 | XMS REPORT | Clinical Summary ---
Author Author Admin, Florecita Munoz Organization [facility] Address Unknown Phone Unavailable Allergies, Adverse Reactions, [...] Sebaceous cyst, scalp 706.2 Resolved Kylie Yokum [employer] PROFESSIONAL Sebaceous cyst Cervical lymphadenopathy, anterior, left 785.6 Resolv ed Kylie Yokum [employer] SERVICE PROFESSIONAL Enlargement of lymph nodes Need for prophylactic vaccination and inoculation against in fluenza V04.81 Resolved Adam Yates MD Need for prophylactic vaccination and inoculation against influenza Preventive health care V70.0 Resolved Kylie Yoku m [employer] SERVICE PROFESSIONAL Routine general medical examination at a health care facility Thyroid nodule, left 241.0 Active Kylie Yokum A PRN Nontoxic uninodular goiter Screening mammogram V76.12 Resolved Kylie Yokum A PRN Other screening mammogram Mandy 706.2 Resolved Kylie Yokum [employer] SERVICE PROFESSIONAL Sebaceous cyst Colon cancer, ascending 153.6 Resolved Kylie Yok um [employer] SERVICE PROFESSIONAL Malignant neoplasm of ascending colon Foot pain, left 729.5 Resolved Kylie Yokum [employer] SERVICE PROFESSIONAL Pain in limb Splinter 919.6 Resolved Kylie Yokum [employer] SERVICE PROFESSIONAL Superficial foreign body (splinter) of other, multiple, and unspecified sites, without major open wound and without mention of infection Rash 782.1 Resolved Kylie Yokum [employer]OMOTIVE SERVICE PROFESSIONAL Rash and other nonspecific skin eruption Cyst 706.2 Resolved Kylie Yokum [employer]OM[employer] SERVICE PROFESSIONAL Sebaceous cyst Body Mass Index 23.0-23.9 Adult Active Kylie Yokum [employer] SERVICE PROFESSIONAL Body Mass Index between 19-24, adult Unspecified fall, initial encounter E888.9 Inactive Kylieshubham Holt [employer]OTIVE SERVICE PROFESSIONAL Unspecified fall Eye pain, left 379.91 Inactive Kylie Yokum [employer]OTIVE SERVICE PROFESSIONAL Pain in or around eye Pharyngitis, acute 074.0 Active Kylieshubham Lundum APR N Herpangina ABDOMINAL PAIN, RIGHT LOWER QUADRANT ICD-789.03 Inactive Kina Joshua [employer] SERVICE PROFESSIONAL ADENOCARCINOMA, COLON, 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 Dick Yates MD ABDOMINAL PAIN, GENERALIZED ICD-789.07 Inactive Hope Benavidez MD PhD FEVER UNSPECIFIED ICD-780.60 Inactive Hope cohn MD PhD UNSPECIFIED VENOUS INSUFFICIENCY ICD-459.81 Harvey ctive Adam Yates MD ADENOCARCINOMA, 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 Inac tive Hope Benavidez MD PhD Hyperkalemia ICD-276.7 Inactive Hope Benavidez MD PhD GERD ICD-530.81 Inactive Kylie Lundum [employer]IVE SERVICE PROFESSIONAL 2015 Health maintenance exam ICD-V70.0 Bam Yates MD Anemia ICD-285.9 Inactive Kylie Polakum [employer]OTIVE SERVICE PROFESSIONAL 07/24 Hypomagnesemia ICD-275.2 Inactive Kylie Yokum [employer] SERVICE PROFESSIONAL Weakness ICD-780.79 Inactive Hope Benavidez MD P [...] cyst, scalp ICD-706.2 Inactive Tracy hi Yokum [employer] SERVICE PROFESSIONAL Cervical lymphadenopathy, anterior, left ICD-785.6 Inactive Kylie Yokum [employer] SERVICE PROFESSIONAL Need for prophylactic vaccination and inoculation against in fluenza ICD-V04.81 Inactive Adam Yates MD Preventive health care ICD-V70.0 Inactive Ka thi Yokum AUTOMOTIVE SERVICE PROFESSIONAL Screening mammogram ICD-V76.12 Inactive Kylie Yokum [employer]OT[employer] SERVICE PROFESSIONAL Mandy ICD-706.2 Inactive Kylie Yokum [employer] SERVICE PROFESSIONAL 07/20 Colon cancer, ascending ICD-153.6 Inactive K athi Yokum [employer]OTIVE SERVICE PROFESSIONAL Foot pain, left ICD-729.5 Inactive Kylie Yokum [employer] SERVICE PROFESSIONAL Splinter ICD-919.6 Inactive Kylie Yokum [employer]IVE SERVICE PROFESSIONAL 2017 Rash ICD-782.1 Inactive Kylie Yokum [employer] SERVICE PROFESSIONAL 07/25 Cyst ICD-706.2 Inactive Kylie Holt [employer] SERVICE PROFESSIONAL 08/11 Unspecified fall, initial encounter ICD-E888.9 Inactive Kylie Holt [employer] SERVICE PROFESSIONAL Eye pain, left ICD-379.91 Inactive Kylie Holt [employer] SERVICE PROFESSIONAL Medication List Medication Instructions Start Date Stop Date Generic Name ND Status Provider Patient Instruction IMODIUM A-D 2 MG ORAL TABLET 1 tablet twice a day LOPERAMIDE HCL 27268157172 Active Kylie Holt AMY Active VOLTAREN 1 % TRANSDERMAL GEL apply q 6-8 hour to left arm as needed for pain DICLOFENAC SODIUM 37090355981 Active Kylie Holt APRN Active COQ10 100 MG ORAL CAPSULE 1 daily COENZYME Q10 374328 52164 Active LETY Nation Active VITAMIN D3 2000 UNIT ORAL CAPSULE Melaleuca-One daily CHOLECALCIFEROL 35708378722 Active Kylie Holt AMY Active PROBIOTIC DAILY ORAL CAPSULE Take one daily PROBIO TIC PRODUCT 65402993383 Active Kylie Holt AMY Active IRON 325 (65 Fe) MG ORAL TABLET 1 every other day FERROUS SULFATE 92152467568 No Longer Active Kylie Holt APRN Active FLORANEX ORAL PACKET 1 pack three times daily, for bowel health LACTOBACILLUS 55189486457 No Longer Active Kylie Holt AMY Active LOMOTIL 2.5-0.025 MG ORAL TABLET 1 tab by mouth prn 23/10/23 DIPHENOXYLATE-ATROPINE 45553759892 No Longer Active Kylie Lundum [employer] SERVICE PROFESSIONAL Active MAGNESIUM GLUCONATE 250 MG ORAL TABLET 1 tab tid 23/10/23 MAGNESIUM GLUCONATE 71578497844 No Longer Active Kylie Lundum [employer] SERVICE PROFESSIONAL Active CYANOCOBALAMIN 1000 MCG/ML INJECTION SOLUTION 1 injection ev ruben 2 weeks CYANOCOBALAMIN 47955953261 No Longer Active Kylie Yok um [employer] SERVICE PROFESSIONAL Active ATENOLOL 25 MG ORAL TABLET 1/2 pill by mouth daily, fo r headaches, blood pressure ATENOLOL 75854782170 Active Kylie Holt [employer] SERVICE PROFESSIONAL Active PROPRANOLOL HCL 80 MG ORAL TABLET 1 tab tue. and thur. PROPRANOLOL HCL 73229759070 No Longer Active Hope Benavidez MD PhD A ctive VITAMIN D3 4000 IU 1 tab 3 times daily VITAMIN D3 4000 IU No Longer Active Hope Benavidez MD PhD Active BACTRIM DS 800-160 MG ORAL TABLET 1 pill by mouth twice claudio y, for UTI SULFAMETHOXAZOLE-TRIMETHOPRIM 00812105467 No Longer Active Hope Benavidez MD PhD Active PROLIA 60 MG/ML SUBCUTANEOUS SOLUTION 1 shot every 6 months for osteoprosis DENOSUMAB 77151418544 Active Hope Benavidez MD PhD Active CALCIUM + D + K 750-500-40 MG-UNT-MCG ORAL TABLET 1 tab by m out twice daily CALCIUM-VITAMIN D-VITAMIN K 58644089001 Active Hope valdez MD PhD Active DAILY VALUE MULTIVITAMIN ORAL TABLET 1 tab by mouth twice daily 201 05/16/14 MULTIPLE VITAMIN 18126135664 Active Hope Benavidez MD PhD Acti ve FISH OIL 306 MG CAPS 1 tab by mouth three times daily OMEGA-3 FATTY ACIDS 51999554649 Active Hope Benavidez MD PhD Active LUTEIN 10 MG ORAL TABLET 1 tab daily LUTEIN 19382548 408 Active Hope Benavidez MD PhD Active TRIAMTERENE-HCTZ 37.5-25 MG ORAL TABLET 1 tab by mouth daily 10/22 TRIAMTERENE-HCTZ 88845998855 Active Kylie Escalonagabbioliver [employer]ICE PROFESSIONAL Active CYCLOBENZAPRINE HCL 10 MG ORAL TABLET 1 tablet by mout h three times daily as needed for headaches CYCLOBENZAPRINE HCL 83361455537 No Longer Active Adam Yates MD Active OMEPRAZOLE 20 MG ORAL CAPSULE DELAYED RELEASE 1 tablet by mo uth daily for GERD OMEPRAZOLE 34292204262 No Longer Active Adam Yates MD Active ZOFRAN 8 MG ORAL TABLET 1 tab by mouth every 12 hours prn 4 ONDANSETRON HCL 49004195185 No Longer Active Adam Yates MD Active PHENADOZ 25 MG RECTAL SUPPOSITORY 1 every 4 hrs. PRN 2 PROMETHAZINE HCL 43033354431 No Longer Active Adam Yates MD A ctive POTASSIUM CHLORIDE 20 MEQ ORAL PACKET by mouth twice a day prn 2 POTASSIUM CHLORIDE 40222363356 No Longer Active Adam Carpenter MD Active PROMETHAZINE HCL 25 MG ORAL TABLET 1 Q. 4 hr. PRN PROMETHAZINE HCL 56694507383 No Longer Active Adam Yates MD Active INNOPRAN XL 120 MG ORAL CAPSULE EXTENDED RELEASE 24 HO UR Take one by mouth daily PROPRANOLOL HCL SR BEADS 69900681817 No Longer Active Adam Yates MD Active FLAGYL 500 MG ORAL TABLET 1 pill by mouth three times daily, for diarrhea METRONIDAZOLE 88911881420 No Longer Active Hope landers MD PhD Active DYAZIDE 37.5-25 MG ORAL CAPSULE 1 qd TRIA MTERENE-HCTZ 96696878864 No Longer Active Hope Benavidez MD PhD Active PROZAC 20 MG ORAL CAPSULE 1 q d FLUOXETINE HCL 37406559873 No Longer Active Hope Benavidez MD PhD Active SIMVASTATIN 40 MG ORAL TABLET 1 qd SIMVAS TATIN 95207861825 No Longer Active Adam Yates MD Active MELOXICAM 15 MG ORAL TABLET 1 qd MELOXICAM 38831987984 No Longer Active Adam Yates MD Active EXCEDRIN EXTRA STRENGTH 250-250-65 MG ORAL TABLET 1-2 q6h TN N headache [id number] 79033448373 Active Hope Benavidez MD PhD Active FLAGYL 500 MG ORAL TABLET 1 qid METRONIDAZOL E 82837461753 No Longer Active Adam Yates MD Active LEVAQUIN 750 MG ORAL TABLET 1 qd LEVOFLOXAC IN 94413158815 No Longer Active Adam Yates MD Active ADULT ASPIRIN LOW STRENGTH 81 MG ORAL TABLET DISINTEGRATING 1 qd ASPIRIN 17276461203 Active Hope Benavidez MD PhD Active LEVAQUIN 750 MG ORAL TABLET 1 qd LEVAQUIN 750 MG ORAL TABLET 733582 LEVOFLOXACIN Inactive FLAGYL 500 MG ORAL TABLET 1 qid FLAGYL 500 MG ORAL TABLET 419462 METRONIDAZOLE Inactive MELOXICAM 15 MG ORAL TABLET 1 qd MELOXICAM 15 MG ORAL TABLET 884662 MELOXICAM Inactive SIMVASTATIN 40 MG ORAL TABLET 1 qd SIMVASTATIN 40 MG ORAL TABLET 302418 SIMVASTATIN Inactive PROZAC 20 MG ORAL CAPSULE 1 q d PROZAC 20 MG ORAL CAPSULE 073053 FLUOXETINE HCL Inactive DYAZIDE 37.5-25 MG ORAL CAPSULE 1 qd 5 DYAZIDE 37.5-25 MG ORAL CAPSULE 699749 TRIAMTERENE-HCTZ Inactive INNOPRAN XL 120 MG ORAL CAPSULE EXTENDED RELEASE 24 HO UR Take one by mouth daily INNOPRAN XL 120 MG ORAL CAPSULE EXTENDED RELEASE 24 HOUR PROPRANOLOL HCL SR BEADS Inactive PROMETHAZINE HCL 25 MG ORAL TABLET 1 Q. 4 hr. PRN 2013 PROMETHAZINE HCL 25 MG ORAL TABLET 176277 PROMETHAZINE HCL Inactive POTASSIUM CHLORIDE 20 MEQ ORAL PACKET by mouth twice a day prn 2 POTASSIUM CHLORIDE 20 MEQ ORAL PACKET 6354126 POTASSIUM CHLORIDE Inactive PHENADOZ 25 MG RECTAL SUPPOSITORY 1 every 4 hrs. PRN 2 PHENADOZ 25 MG RECTAL SUPPOSITORY 155080 PROMETHAZINE HCL Inactive ZOFRAN 8 MG ORAL TABLET 1 tab by mouth every 12 hours prn 4 ZOFRAN 8 MG ORAL TABLET 774354 ONDANSETRON HCL Inactive OMEPRAZOLE 20 MG ORAL CAPSULE DELAYED RELEASE 1 tablet by [facility] daily for GERD OMEPRAZOLE 20 MG ORAL CAPSULE DELAYED RELEASE 19 8051 OMEPRAZOLE Inactive CYCLOBENZAPRINE HCL 10 MG ORAL TABLET 1 tablet by mout h three times daily as needed for headaches CYCLOBENZAPRINE HCL 10 MG ORAL TABLET 010266 CYCLOBENZAPRINE HCL Inactive VITAMIN D3 4000 IU 1 tab 3 times daily VITAMIN D3 4000 IU Inactive PROPRANOLOL HCL 80 MG ORAL TABLET 1 tab tue. and thur. PROPRANOLOL HCL 80 MG ORAL TABLET 164400 PROPRANOLOL HCL Inacti ve CYANOCOBALAMIN 1000 MCG/ML INJECTION SOLUTION 1 injection ev ruben 2 weeks CYANOCOBALAMIN 1000 MCG/ML INJECTION SOLUTION 30 9594 CYANOCOBALAMIN Inactive MAGNESIUM GLUCONATE 250 MG ORAL TABLET 1 tab tid 23/10/23 MAGNESIUM GLUCONATE 250 MG ORAL TABLET 358298 MAGNESIUM GLUCONATE Inactive LOMOTIL 2.5-0.025 MG ORAL TABLET 1 tab by mouth prn 23/10/23 LOMOTIL 2.5-0.025 MG ORAL TABLET 4577950 DIPHENOXYLATE-ATROPINE Inac tive FLORANEX ORAL PACKET 1 pack three times daily, for bowel health FLORANEX ORAL PACKET 14182863885 LACTOBACILLUS Inactive IRON 325 (65 Fe) MG ORAL TABLET 1 every other day 2015 IRON 325 (65 Fe) MG ORAL TABLET 629633 FERROUS SULFATE Inactive FLAGYL 500 MG ORAL TABLET 1 pill by mouth three times daily, for diarrhea FLAGYL 500 MG ORAL TABLET 338846 METRONIDAZOLE I nactive BACTRIM DS 800-160 MG ORAL TABLET 1 pill by mouth twice claudio y, for UTI BACTRIM DS 800-160 MG ORAL TABLET 915191 SULFAMETHOXAZOLE-TRIMETHOPRIM Inactive Advance Directives Directive Description Start [...] ... - Chemistry sodium, serum 138 mmol/L 037-952 2092/12/15 potassium, serum 4.0 mmol/L 3.5-5.2 chloride, serum [...] - Chem istry sodium, serum 142 mmol/L 000-960 2442/04/19 carbon dioxide, venous blood 30.2 mmol/L 21.0-32 [...] mg/dL Encounters Code Encounter Date Provider Facility CPT-[id number] Vst-Est Level III 14:29:19 CDT Fiorella Holt [facility] [place] [facility] [place] CPT-08915 Level 2 Est. Patient 14:58:26 CDT Kylie Lund [facility] [place] CPT-38956 Level 3 Est. Patient 08:15:24 [employer] SERVICER Kylie Lund [facility] [place] CPT-31419 Level 2 Est. Patient 14:27:16 [employer]RON[employer] SERVICER Kylie Lund [facility] [place] CPT-14052 Level 3 Est. Patient 17:54:48 CDT Kylie Escalonagabbi [facility] [place] CPT-79147 Level 3 Est. Patient 16:26:30 CDT Kina Terry blackmon [facility] [place] CPT-88415 Level 3 New Patient 16:22:01 ELECTRONIC VIDEO GAMES SERVICER Adam Yates MD [facility] CPT-99334 Level 4 Est. Patient 17:00:48 CDT Kylie Lund [facility] [place] CPT-86005 Level 3 Est. Patient 13:15:54 CDT Kylie Lund [facility] [place] CPT-01893 Level 3 Est. Patient 09:10:11 CDT Kylie Kevon [facility] [place] CPT-42289 Level 4 Est. Patient 12:08:30 ELECTRONIC [employer]AMES SERVICER Hope cohn MD PhD [facility] CPT-22899 Level 4 Est. Patient 19:08:42 ELECTRONIC [employer]IDEO GAMES SERVICER Hope cohn MD PhD [facility] CPT-00398 Level 4 Est. Patient 20:04:51 CDT Hope cohn MD PhD [facility] CPT-93328 Level 3 New Patient 01:46:11 E[employer]RON[employer] SERVICER Hope landers MD PhD [facility] Procedures Code Procedure Name Date Entry Date Standard Desc ription CPT-G0439 [facility] Annual Wellness Exam 14:29:19 CDT CPT-00871 Venipuncture Draw Fee 10:59:04 CDT CPT-59016 CMP - LAB USE ONLY 10:59:04 CDT CPT-78271 CBC with Diff - LAB USE ONLY 10:59:03 CDT 2 CPT-J0897 Prolia 60 mg 15:46:54 [employer] SERVICER CPT-82907 Abx/Therapy Injection 15:46:54 [employer]RONIC [employer] SERVICER CPT-41025 Microalbumin - LAB USE ONLY 09:41:32 ELECTRONIC [employer] G[employer] SERVICER 20 23/01/15 CPT-34170 Free T4 - LAB USE ONLY 09:41:32 ELECTRONIC [employer] SERVICER CPT-33767 TSH - LAB USE ONLY 09:41:32 ELECTRONIC [employer] SERVICER CPT-28510 BMP - LAB USE ONLY 09:41:32 ELECTRONIC [employer] SERVICER CPT-02198 Venipuncture Draw Fee 09:41:32 ELECTRONIC [employer] G[employer] SERVICER CPT-02569 First Vx - Ix admin for Medicare patients 11:19:30 CDT CPT-07830 Fluzone High-Dose Intramuscular Suspension 12/07 11:19:30 CDT CPT-J0897 Prolia 60 mg 14:55:42 CDT CPT-71038 Abx/Therapy Injection 14:55:42 CDT CPT-09036 Bone Density - XRAY USE ONLY 10:27:12 CDT 2 CPT-G0439 Subsequent Annual Wellness Exam 17:54:53 CDT CPT-98044 Foot, left, comp min 3V - XRAY USE ONLY 12:22:49 CDT CPT-G0009 Administration of Pneumococcal Vaccine 3 12:18:00 CDT CPT-40330 Pneumovax 23 Injection Injectable 25 MCG /0.5ML 12:18:00 CDT CPT-J0897 Prolia 60 mg 14:14:16 ELECTRONIC [employer] SERVICER CPT-58655 Abx/Therapy Injection 14:14:15 ELECTRONIC [employer]IDEO GAMES SERVICER CPT-63082 Lipid - LAB USE ONLY 10:01:52 ELECTRONIC [employer]IDEO GAMES SERVICER 2 CPT-84752 Calcium - LAB USE ONLY 10:01:51 ELECTRONIC [employer]IDEO GAMES SERVICER CPT-74361 Venipuncture Draw Fee 10:01:51 ELECTRONIC [employer] SERVICER CPT-LR Lesion Removal 16:22:01 ELECTRONIC [employer] SERVICER CPT-06983 TSH - LAB USE ONLY 14:26:02 CDT CPT-16232 CMP - LAB USE ONLY 14:26:01 CDT CPT-41732 CBC with Diff - LAB USE ONLY 14:26:01 CDT 2 CPT-11116 Venipuncture Draw Fee 14:26:01 CDT CPT-68391 First Vx - Ix admin for Medicare patients 13:27:08 CDT CPT-28428 Fluzone High-Dose Intramuscular Suspension 11/26 13:27:08 CDT CPT-G0438 Initial Annual Wellness Exam 14:19:57 CD T CPT-G0009 Administration of Pneumococcal Vaccine 9 11:36:25 CDT CPT-26983 Prevnar 13 Intramuscular Suspension 1 1:36:25 CDT CPT-96819 Prevnar 13 Intramuscular Suspension 1 0:40:58 CDT CPT-J0897 Prolia 60 mg 10:37:16 CDT CPT-64136 Abx/Therapy Injection 10:37:16 CDT CPT-J0897 Prolia 60 mg 16:09:34 ELECTRONIC [employer]AMES SERVICER CPT-J0897 Prolia 60 mg 11:10:35 ELECTRONIC [employer]IDEO GAMES SERVICER CPT-61123 Abx/Therapy Injection 11:10:35 ELECTRONIC [employer]IDEO GAMES SERVICER CPT-000 Give Appropriate Flu Vaccine 17:01:15 ELECTRONIC [employer] GAMES SERVICER 2 CPT-10926 Fluzone High Dose (65+) 15:03:08 ELECTRONIC [employer]IDEO GAMES SERVICER 02/15 CPT-91573 Immunization Single Admin 15:03:08 ELECTRONIC [employer]IDEO GAMES SERVICER 2014 CPT-OV Office Visit 15:58:06 CDT CPT-J0897 Prolia 60 mg 08:45:38 CDT CPT-14282 Abx/Therapy Injection 08:45:38 CDT CPT-J3420 Vitamin B12 1000mcg (Cyanocobalamin) 09:26:20 ELECTRONIC [employer]IDEO [employer] SERVICER CPT-00660 Abx/Therapy Injection 09:26:20 ELECTRONIC VIDEO GAMES SERVICER CPT-J3420 Vitamin B12 1000mcg (Cyanocobalamin) 09:44:40 ELECTRONIC VIDEO GAMES SERVICER CPT-66639 Abx/Therapy Injection 09:44:40 ELECTRONIC VIDEO GAMES SERVICER CPT-J3420 Vitamin B12 1000mcg (Cyanocobalamin) 09:15:54 ELECTRONIC VIDEO GAMES SERVICER CPT-10644 Abx/Therapy Injection 09:15:54 ELECTRONIC VIDEO GAMES SERVICER CPT-J3420 Vitamin B12 1000mcg (Cyanocobalamin) 09:46:44 ELECTRONIC VIDEO GAMES SERVICER CPT-43707 Abx/Therapy Injection 09:46:44 ELECTRONIC VIDEO GAMES SERVICER CPT-J3420 Vitamin B12 1000mcg (Cyanocobalamin) 09:47:34 ELECTRONIC VIDEO GAMES SERVICER CPT-93754 Abx/Therapy Injection 09:47:34 ELECTRONIC VIDEO GAMES SERVICER CPT-J3420 Vitamin B12 1000mcg (Cyanocobalamin) 14:35:50 ELECTRONIC VIDEO GAMES SERVICER CPT-J3420 Vitamin B12 1000mcg (Cyanocobalamin) 09:25:05 ELECTRONIC VIDEO GAMES SERVICER CPT-07635 Abx/Therapy Injection 09:25:05 ELECTRONIC VIDEO GAMES SERVICER CPT-G0008 Administration of Influenza Virus Vaccine 13:36:47 CDT CPT-28686 Fluzone High-Dose Intramuscular Suspension 11/15 13:36:47 CDT CPT-J0897 Prolia 60 mg 08:50:41 CDT CPT-02857 Abx/Therapy Injection 08:50:41 CDT CPT-74624 Bone Density 12:06:12 CDT CPT-48589 Bone Density 08:54:40 CDT CPT-OV Office Visit 15:37:02 CDT CPT-39623 Postop F/U Visit 15:47:49 CDT CPT-69354 Postop F/U Visit 15:21:02 CDT [facility] Transitional Care Mgmt-High 07:52:27 CDT 20 20/06/01 CPT-39380 Venipuncture Draw Fee 13:51:18 CDT CPT-62953 Venipuncture Draw Fee 10:14:55 E[employer]RONIC [employer] G[employer] SERVICER CPT-17549 Venipuncture Draw Fee 13:39:45 ELECTRONIC [employer]IDEO GAMES SERVICER CPT-OV Office Visit 15:11:22 ELECTRONIC [employer]IDEO GAMES SERVICER CPT-07837 Venipuncture Draw Fee 09:20:49 ELECTRONIC VIDEO GAMES SERVICER CPT-96896 Venipuncture Draw Fee 16:52:15 ELECTRONIC VIDEO GAMES SERVICER CPT-60402 Venipuncture Draw Fee 10:37:24 ELECTRONIC VIDEO GAMES SERVICER CPT-16563 Venipuncture Draw Fee 08:21:21 ELECTRONIC VIDEO GAMES SERVICER CPT-37273 Venipuncture Draw Fee 08:30:20 ELECTRONIC VIDEO GAMES SERVICER CPT-08719 Venipuncture Draw Fee 14:53:21 ELECTRONIC VIDEO GAMES SERVICER CPT-77420 Venipuncture Draw Fee 09:40:56 ELECTRONIC VIDEO GAMES SERVICER CPT-36965 Venipuncture Draw Fee 10:30:47 ELECTRONIC VIDEO GAMES SERVICER CPT-93362 Venipuncture Draw Fee 10:46:17 ELECTRONIC VIDEO GAMES SERVICER CPT-95222 Venipuncture Draw Fee 11:12:45 ELECTRONIC VIDEO GAMES SERVICER CPT-49012 Venipuncture Draw Fee 09:53:33 ELECTRONIC VIDEO GAMES SERVICER CPT-67739 Venipuncture Draw Fee 11:53:51 ELECTRONIC VIDEO GAMES SERVICER CPT-29963 Venipuncture Draw Fee 10:33:50 ELECTRONIC VIDEO GAMES SERVICER CPT-49598 Venipuncture Draw Fee 10:05:01 ELECTRONIC VIDEO GAMES SERVICER CPT-65744 Venipuncture Draw Fee 14:32:52 ELECTRONIC VIDEO GAMES SERVICER CPT-85509 Venipuncture Draw Fee 09:46:13 ELECTRONIC VIDEO GAMES SERVICER CPT-49932 Venipuncture Draw Fee 11:34:27 ELECTRONIC [employer]IDEO GAMES SERVICER CPT-58246 Venipuncture Draw Fee 13:17:16 ELECTRONIC [employer]IDEO GAMES SERVICER CPT-94581 Venipuncture Draw Fee 12:05:39 CDT CPT-77715 Venipuncture Draw Fee 12:49:12 CDT CPT-62423 Venipuncture Draw Fee 12:37:18 CDT CPT-08674 Venipuncture Draw Fee 10:57:11 CDT CPT-51527 Venipuncture Draw Fee 13:47:40 CDT CPT-71361 Venipuncture Draw Fee 10:02:17 CDT CPT-12539 TB Tubersol 17:32:32 CDT CPT-OV Office Visit 16:21:53 CDT CPT-OV Office Visit 15:49:22 CDT CPT-OV Office Visit 17:16:31 CDT CPT-OV Office Visit 10:43:31 CDT
--- OUTSIDE RECORDS SUMMARY | 2019-02-09 12:17 | XMS REPORT | Clinical Summary ---
Author Author Admin, Florecita Munoz Organization [facility] Address Unknown Phone Unavailable Allergies, Adverse Reactions, [...] Benavidez MD PhD Hyperpotassemia GERD 530.81 Resolved Kyile Holt APRN Esophageal reflux Health maintenance exam [...] Sebaceous cyst, scalp 706.2 Resolved Kylie Holt MANAGER ZONE Sebaceous cyst Cervical lymphadenopathy, anterior, left 785.6 Resolv ed Kylie Holt MANAGER ZONE Enlargement of lymph nodes Need for prophylactic vaccination and inoculation against in fluenza V04.81 Resolved Adam Yates MD Need for prophylactic vaccination and inoculation against influenza Preventive health care V70.0 Active Kylie Holt MANAGER ZONE Routine general medical examination at a health care facility Thyroid nodule, left 241.0 Active Kylie Holt A PRN Nontoxic uninodular goiter Screening mammogram V76.12 Active Kylie Holt AP RN Other screening mammogram Mandy 706.2 Active Adam Yates MD Sebaceous cyst Colon cancer, ascending 153.6 Active Kelsy F aux RMA Malignant neoplasm of ascending colon ABDOMINAL PAIN, RIGHT LOWER QUADRANT ICD-789.03 Inactive Kina Joshua MANAGER ZONE ADENOCARCINOMA, COLON, 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 Dick Yates MD ABDOMINAL PAIN, GENERALIZED ICD-789.07 Inactive Hope Benavidez MD PhD FEVER UNSPECIFIED ICD-780.60 Inactive Hope cohn MD PhD UNSPECIFIED VENOUS INSUFFICIENCY ICD-459.81 Elda ctive Adam Yates MD ADENOCARCINOMA, 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 Inac tive Hope Benavidez MD PhD Hyperkalemia ICD-276.7 Inactive Hope Benavidez MD PhD GERD ICD-530.81 Inactive Kylie Holt MANAGER ZONE 2015 Health maintenance exam ICD-V70.0 Inactive Adolfo Yates MD Anemia ICD-285.9 Inactive Kylie Holt MANAGER ZONE 07/24 Weakness ICD-780.79 Inactive Hope Benavidez MD [...] PhD 201 05/19/01 Adenocarcinoma, ascending colon ICD-153.6 Ina abdelrahman Yates MD Sebaceous cyst, scalp ICD-706.2 Inactive Tracy Holt MANAGER ZONE Cervical lymphadenopathy, anterior, left ICD-785.6 Inactive Kylie Holt MANAGER ZONE Need for prophylactic vaccination and inoculation against in fluenza ICD-V04.81 Inactive Adam Yates MD Medication List Medication Instructions Start Date Stop Date Generic Name NDC Status Provider Patient Instruction COQ10 100 MG ORAL CAPS 1 daily COENZYME Q10 [id number] 20 Active [place] Haley Active VITAMIN D3 2000 UNIT ORAL CAPS Melaleuca-One daily CHOLECALCIFEROL 27691554804 Active Kylie Holt MANAGER ZONE Active PROBIOTIC DAILY ORAL CAPS Take one daily PROBIOTIC PRODUCT 36443321985 Active Kylie Lundum MANAGER ZONE Active IRON 325 (65 FE) MG TABS 1 every other day FERR OUS SULFATE 86074057484 No Longer Active Kylie Lundum MANAGER ZONE Active FLORANEX PACK 1 pack three times daily, for bowel health LACTOBACILLUS 64913411850 No Longer Active Kylie Holt MANAGER ZONE Active LOMOTIL 2.5-0.025 MG TABS 1 tab by mouth prn 4 DIPHENOXYLATE-ATROPINE 00387319078 No Longer Active Kylie Lundum MANAGER ZONE Active MAGNESIUM GLUCONATE 250 MG TABS 1 tab tid 4 MAGNESIUM GLUCONATE 71866069535 No Longer Active Kylie Holt MANAGER ZONE Active CYANOCOBALAMIN 1000 MCG/ML INJ SOLN 1 injection every 2 weeks 20 20/01/03 CYANOCOBALAMIN 74012234377 No Longer Active Kylie Lundum MANAGER ZONE Active ATENOLOL 25 MG ORAL TABS 1/2 pill by mouth daily, for headac hes, blood pressure ATENOLOL 65405514070 Active Kylie Lundum MANAGER ZONE Active PROPRANOLOL HCL 80 MG TABS 1 tab tue. and thur. 04/10 PROPRANOLOL HCL 21926780083 No Longer Active Hope Benavidez MD PhD A ctive VITAMIN D3 4000 IU 1 tab 3 times daily VITAMIN D3 4000 IU No Longer Active Hope Benavidez MD PhD Active BACTRIM DS 800-160 MG TABS 1 pill by mouth twice daily, for UTI SULFAMETHOXAZOLE-TRIMETHOPRIM 81017978210 No Longer Active A attila Benavidez MD PhD Active PROLIA 60 MG/ML SOLN 1 shot every 6 months for osteoprosis DENOSUMAB 29685841435 Active Hope Benavidez MD PhD Active CALCIUM + D + K 750-500-40 MG-UNT-MCG TABS 1 tab by mouth tw ice daily CALCIUM-VITAMIN D-VITAMIN K 34708334560 Active Hope landers MD PhD Active DAILY VALUE MULTIVITAMIN TABS 1 tab by mouth twice daily MULTIPLE VITAMIN 05597223565 Active Hope Benavidez MD PhD Active FISH OIL 306 MG CAPS 1 tab by mouth three times daily OMEGA-3 FATTY ACIDS 28142832964 Active Hope Benavidez MD PhD Active LUTEIN 10 MG TABS 1 tab daily LUTEIN 24944648949 Act cash Hope Benavidez MD PhD Active TRIAMTERENE-HCTZ 37.5-25 MG TABS 1 tab by mouth daily TRIAMTERENE-HCTZ 79932769317 Active Kylie Holt MANAGER ZONE Active CYCLOBENZAPRINE HCL 10 MG TABS 1 tablet by mouth three times daily as needed for headaches CYCLOBENZAPRINE HCL 03784134974 No Longe r Active Adam Yates MD Active OMEPRAZOLE 20 MG CPDR 1 tablet by mouth daily for GERD OMEPRAZOLE 88722077911 No Longer Active Adam Yates MD A ctive ZOFRAN 8 MG TABS 1 tab by mouth every 12 hours prn 201 05/16/09 ONDANSETRON HCL 19538218065 No Longer Active Adam Yates MD Active PHENADOZ 25 MG SUPP 1 every 4 hrs. PRN PROMETHA ZINE HCL 22222886389 No Longer Active Adam Yates MD Active POTASSIUM CHLORIDE 20 MEQ PACK by mouth twice a day prn POTASSIUM CHLORIDE 21032842915 No Longer Active Adam Yates MD Active PROMETHAZINE HCL 25 MG TABS 1 Q. 4 hr. PRN PROM ETHAZINE HCL 07880613337 No Longer Active Adam Yates MD Active INNOPRAN XL 120 MG [id number] Take one by mouth daily 2 PROPRANOLOL HCL SR BEADS 82583912912 No Longer Active Adam Yates MD A ctive FLAGYL 500 MG TABS 1 pill by mouth three times daily, for diarrh ea METRONIDAZOLE 27466728525 No Longer Active Hope Benavidez MD PhD Active DYAZIDE 37.5-25 MG CAPS 1 qd TRIAMTERENE-HC TZ 48362325897 No Longer Active Hope Benavidez MD PhD Active PROZAC 20 MG CAPS 1 q d FLUOXETINE HCL 83556 369627 No Longer Active Hope Benavidez MD PhD Active SIMVASTATIN 40 MG TABS 1 qd SIMVASTATIN 004 50323237 No Longer Active Adam Yates MD Active MELOXICAM 15 MG TABS 1 qd MELOXICAM 5920081 1512 No Longer Active Adam Yates MD Active IMODIUM A-D 2 MG TABS 2 onset at diarrhea and prn. LOPERAMIDE HCL 78567061031 Active Hope Benavidez MD PhD Active EXCEDRIN EXTRA STRENGTH 250-250-65 MG TABS 1-2 q6h PRN headache 201 04/16/21 CNSKAWN-XOROCVZZJAYOB-UJWYYYUG 64182258119 Active Hope Benavidez MD PhD Active FLAGYL 500 MG TABS 1 qid METRONIDAZOLE 22442 241929 No Longer Active Adam Yates MD Active LEVAQUIN 750 MG TABS 1 qd LEVOFLOXACIN 5486 3098884 No Longer Active Adam Yates MD Active ADULT ASPIRIN LOW STRENGTH 81 MG TBDP 1 qd A SPIRIN 74710959013 Active Hope Benavidez MD PhD Active LEVAQUIN 750 MG TABS 1 qd LEVAQUIN 750 MG T ABS 279368 LEVOFLOXACIN Inactive FLAGYL 500 MG TABS 1 qid FLAGYL 500 MG TABS 427736 METRONIDAZOLE Inactive MELOXICAM 15 MG TABS 1 qd MELOXICAM 15 MG T ABS 946351 MELOXICAM Inactive SIMVASTATIN 40 MG TABS 1 qd SIMVASTATIN 40 MG TABS 627068 SIMVASTATIN Inactive PROZAC 20 MG CAPS 1 q d PROZAC 20 MG CAPS 31 0385 FLUOXETINE HCL Inactive DYAZIDE 37.5-25 MG CAPS 1 qd DYAZIDE 37.5 -25 MG CAPS 173931 TRIAMTERENE-HCTZ Inactive INNOPRAN XL 120 MG [id number] Take one by mouth daily 2 INNOPRAN XL 120 MG [id number] PROPRANOLOL HCL SR BEADS Inactive PROMETHAZINE HCL 25 MG TABS 1 Q. 4 hr. PRN PROMETHAZINE HCL 25 MG TABS 971242 PROMETHAZINE HCL Inactive POTASSIUM CHLORIDE 20 MEQ PACK by mouth twice a day prn POTASSIUM CHLORIDE 20 MEQ PACK 7647796 POTASSIUM CHLORIDE Inactive PHENADOZ 25 MG SUPP 1 every 4 hrs. PRN PHENADOZ 2 5 MG SUPP 183155 PROMETHAZINE HCL Inactive ZOFRAN 8 MG TABS 1 tab by mouth every 12 hours prn 201 05/16/09 ZOFRAN 8 MG TABS 456408 ONDANSETRON HCL Inactive OMEPRAZOLE 20 MG CPDR 1 tablet by mouth daily for GERD OMEPRAZOLE 20 MG CPDR 824145 OMEPRAZOLE Inactive CYCLOBENZAPRINE HCL 10 MG TABS 1 tablet by mouth three times daily as needed for headaches CYCLOBENZAPRINE HCL 10 MG TABS 238739 CYCLOBENZAPRINE HCL Inactive VITAMIN D3 4000 IU 1 tab 3 times daily VITAMIN D3 4000 IU Inactive PROPRANOLOL HCL 80 MG TABS 1 tab tue. and thur. 04/10 PROPRANOLOL HCL 80 MG TABS 289852 PROPRANOLOL HCL Inactive CYANOCOBALAMIN 1000 MCG/ML INJ SOLN 1 injection every 2 weeks 20 20/01/03 CYANOCOBALAMIN 1000 MCG/ML INJ SOLN 013940 CYANOCOBALAM IN Inactive MAGNESIUM GLUCONATE 250 MG TABS 1 tab tid 4 MAGNESIUM GLUCONATE 250 MG TABS 814282 MAGNESIUM GLUCONATE Inactive LOMOTIL 2.5-0.025 MG TABS 1 tab by mouth prn 4 LOMOTIL 2.5- 0.025 MG TABS 3496652 DIPHENOXYLATE-ATROPINE Inactive FLORANEX PACK 1 pack three times daily, for bowel health FLORANEX PACK LACTOBACILLUS Inactive IRON 325 (65 FE) MG TABS 1 every other day IRON 325 (65 FE) MG TABS 169048 FERROUS SULFATE Inactive FLAGYL 500 MG TABS 1 pill by mouth three times daily, for diarrh ea FLAGYL 500 MG TABS 365546 METRONIDAZOLE Inactive BACTRIM DS 800-160 MG TABS 1 pill by mouth twice daily, for UTI BACTRIM DS 800-160 MG TABS 184032 SULFAMETHOXAZOLE-TRIM ETHOPRIM Inactive Advance Directives Directive Description [...] Range Description blood pressure, diastolic - 8462-4 68 mm[Hg] BP dobson blood pressure, systolic - 8480-6 120 mm[Hg] BP sys height E&M - 8302-2 63 [in_us] Bdy h eight pulse rate E&M - 8867-4 78 /min H eart rate temperature E&M 97.5 [degF] Body temp erature weight E&M - 3141-9 136.5 [lb_av] Weigh t Measured blood pressure, diastolic - 8462-4 72 mm[Hg] BP dobson blood pressure, systolic - 8480-6 124 mm[Hg] BP sys pulse rate E&M - 8867-4 64 /min H eart rate temperature E&M 96.8 [degF] Body temp erature weight E&M - 3141-9 147 [lb_av] Weigh t Measured blood pressure, diastolic - 8462-4 68 mm[Hg] BP dobson blood pressure, systolic - 8480-6 132 mm[Hg] BP sys pulse rate E&M - 8867-4 57 /min H eart rate temperature E&M 97.8 [degF] Body temp erature weight E&M - [...] Name Value Unit Range Description Lab Report: CBC (INCLUDES DIFF/PLT)/6399 - Hematology [...] 11 .0-15.0 platelet count 157 THOUSAND/UL 10*3/mm3 877-790 6720/04/20 mean platelet volume 8.9 fL 7.5-12.5 Lab Report: CBC W/DIFF, Comp. Metabolic Panel, Thyroid Stimulating Hormo ... - Chemistry sodium, serum 139 mmol/L 926-503 2610/10/20 carbon dioxide, venous blood 32.2 mmol/L 21.0-32 [...] - Chemi stry cholesterol, serum 200 mg/dL 823-521 4462/11/22 triglyceride, serum, fasting 129 mg/dL 30-200 HDL cholesterol, serum 56 mg/dL 32-96 LDL cholesterol, serum 118 mg/dL 0-130 calcium, serum 9.0 mg/dL 8.5-10.1 Lab Report: MicroAlb Random w/creat/6517 - Urinalysis microalbumin/total urine volume 8 mg/L Units converted. See lab report for original value. microalbumin/creatinine ratio, urine 15 MCG/MG CREAT mg/L <30 Encounters Code Encounter Date Provider Facility CPT-74602 Level 3 Est. Patient 16:26:30 CDT Kina blackmon APRN [facility] CPT-45276 Level 3 New Patient 16:22:01 BOOMBOAT OPERATOR Adam Yates MD [facility] CPT-30114 Level 4 Est. Patient 17:00:48 CDT Kylie Lund [facility] CPT-87779 Level 3 Est. Patient 13:15:54 CDT Kylie Lund [facility] CPT-14752 Level 3 Est. Patient 09:10:11 CDT Kylie Lund [facility] CPT-22982 Level 4 Est. Patient 12:08:30 BOOMBOAT OPERATOR Hope cohn MD PhD [facility] CPT-33648 Level 4 Est. Patient 19:08:42 BOOMBOAT OPERATOR Hope cohn MD [facility] CPT-90755 Level 4 Est. Patient 20:04:51 CDT Hope cohn MD PhD [facility] CPT-76816 Level 3 New Patient 01:46:11 BOOMBOAT OPERATOR Hope landers MD PhD [facility] Procedures Code Procedure Name Date Entry Date Standard Desc ription CPT-J0897 Prolia 60 mg 14:14:16 BOOMBOAT OPERATOR CPT-37228 Abx/Therapy Injection 14:14:15 BOOMBOAT OPERATOR CPT-76767 Lipid - LAB USE ONLY 10:01:52 BOOMBOAT OPERATOR 2 CPT-04906 Calcium - LAB USE ONLY 10:01:51 BOOMBOAT OPERATOR CPT-47441 Venipuncture Draw Fee 10:01:51 BOOMBOAT OPERATOR CPT-LR Lesion Removal 16:22:01 BOOMBOAT OPERATOR CPT-97527 TSH - LAB USE ONLY 14:26:02 CDT CPT-38875 CMP - LAB USE ONLY 14:26:01 CDT CPT-36249 CBC with Diff - LAB USE ONLY 14:26:01 CDT 2 CPT-57177 Venipuncture Draw Fee 14:26:01 CDT CPT-84261 First Vx - Ix admin for Medicare patients 13:27:08 CDT CPT-99554 Fluzone High-Dose Intramuscular Suspension 11/26 13:27:08 CDT CPT-G0438 Initial Annual Wellness Exam 14:19:57 CD T CPT-G0009 Administration of Pneumococcal Vaccine 9 11:36:25 CDT CPT-29427 Prevnar 13 Intramuscular Suspension 1 1:36:25 CDT CPT-27688 Prevnar 13 Intramuscular Suspension 1 0:40:58 CDT CPT-J0897 Prolia 60 mg 10:37:16 CDT CPT-99386 Abx/Therapy Injection 10:37:16 CDT CPT-J0897 Prolia 60 mg 16:09:34 BOOMBOAT OPERATOR CPT-J0897 Prolia 60 mg 11:10:35 BOOMBOAT OPERATOR CPT-61583 Abx/Therapy Injection 11:10:35 BOOMBOAT OPERATOR CPT-000 Give Appropriate Flu Vaccine 17:01:15 BOOMBOAT OPERATOR 2 CPT-18091 Fluzone High Dose (65+) 15:03:08 BOOMBOAT OPERATOR 02/15 CPT-98330 Immunization Single Admin 15:03:08 BOOMBOAT OPERATOR 2014 CPT-OV Office Visit 15:58:06 CDT CPT-J0897 Prolia 60 mg 08:45:38 CDT CPT-95763 Abx/Therapy Injection 08:45:38 CDT CPT-J3420 Vitamin B12 1000mcg (Cyanocobalamin) 09:26:20 BOOMBOAT OPERATOR CPT-51787 Abx/Therapy Injection 09:26:20 BOOMBOAT OPERATOR CPT-J3420 Vitamin B12 1000mcg (Cyanocobalamin) 09:44:40 BOOMBOAT OPERATOR CPT-30959 Abx/Therapy Injection 09:44:40 BOOMBOAT OPERATOR CPT-J3420 Vitamin B12 1000mcg (Cyanocobalamin) 09:15:54 BOOMBOAT OPERATOR CPT-66682 Abx/Therapy Injection 09:15:54 BOOMBOAT OPERATOR CPT-J3420 Vitamin B12 1000mcg (Cyanocobalamin) 09:46:44 BOOMBOAT OPERATOR CPT-24255 Abx/Therapy Injection 09:46:44 BOOMBOAT OPERATOR CPT-J3420 Vitamin B12 1000mcg (Cyanocobalamin) 09:47:34 BOOMBOAT OPERATOR CPT-72391 Abx/Therapy Injection 09:47:34 BOOMBOAT OPERATOR CPT-J3420 Vitamin B12 1000mcg (Cyanocobalamin) 14:35:50 BOOMBOAT OPERATOR CPT-J3420 Vitamin B12 1000mcg (Cyanocobalamin) 09:25:05 BOOMBOAT OPERATOR CPT-92145 Abx/Therapy Injection 09:25:05 BOOMBOAT OPERATOR CPT-G0008 Administration of Influenza Virus Vaccine 13:36:47 CDT CPT-64008 Fluzone High-Dose Intramuscular Suspension 11/15 13:36:47 CDT CPT-J0897 Prolia 60 mg 08:50:41 CDT CPT-06215 Abx/Therapy Injection 08:50:41 CDT CPT-47981 Bone Density 12:06:12 CDT CPT-45034 Bone Density 08:54:40 CDT CPT-OV Office Visit 15:37:02 CDT CPT-62829 Postop F/U Visit 15:47:49 CDT CPT-77065 Postop F/U Visit 15:21:02 CDT CPT-TCMH Transitional Care Mgmt-High 07:52:27 CDT 20 20/06/01 CPT-04346 Venipuncture Draw Fee 13:51:18 CDT CPT-32453 Venipuncture Draw Fee 10:14:55 BOOMBOAT OPERATOR CPT-14118 Venipuncture Draw Fee 13:39:45 BOOMBOAT OPERATOR CPT-OV Office Visit 15:11:22 BOOMBOAT OPERATOR CPT-66639 Venipuncture Draw Fee 09:20:49 BOOMBOAT OPERATOR CPT-09763 Venipuncture Draw Fee 16:52:15 BOOMBOAT OPERATOR CPT-64494 Venipuncture Draw Fee 10:37:24 BOOMBOAT OPERATOR CPT-26879 Venipuncture Draw Fee 08:21:21 BOOMBOAT OPERATOR CPT-79796 Venipuncture Draw Fee 08:30:20 BOOMBOAT OPERATOR CPT-94914 Venipuncture Draw Fee 14:53:21 BOOMBOAT OPERATOR CPT-09716 Venipuncture Draw Fee 09:40:56 BOOMBOAT OPERATOR CPT-91859 Venipuncture Draw Fee 10:30:47 BOOMBOAT OPERATOR CPT-10315 Venipuncture Draw Fee 10:46:17 BOOMBOAT OPERATOR CPT-41041 Venipuncture Draw Fee 11:12:45 BOOMBOAT OPERATOR CPT-10789 Venipuncture Draw Fee 09:53:33 BOOMBOAT OPERATOR CPT-70389 Venipuncture Draw Fee 11:53:51 BOOMBOAT OPERATOR CPT-34786 Venipuncture Draw Fee 10:33:50 BOOMBOAT OPERATOR CPT-95494 Venipuncture Draw Fee 10:05:01 BOOMBOAT OPERATOR CPT-87496 Venipuncture Draw Fee 14:32:52 BOOMBOAT OPERATOR CPT-13036 Venipuncture Draw Fee 09:46:13 BOOMBOAT OPERATOR CPT-01186 Venipuncture Draw Fee 11:34:27 BOOMBOAT OPERATOR CPT-56589 Venipuncture Draw Fee 13:17:16 BOOMBOAT OPERATOR CPT-59629 Venipuncture Draw Fee 12:05:39 CDT CPT-92868 Venipuncture Draw Fee 12:49:12 CDT CPT-84276 Venipuncture Draw Fee 12:37:18 CDT CPT-40518 Venipuncture Draw Fee 10:57:11 CDT CPT-94655 Venipuncture Draw Fee 13:47:40 CDT CPT-20619 Venipuncture Draw Fee 10:02:17 CDT CPT-67815 TB Tubersol 17:32:32 CDT CPT-OV Office Visit 16:21:53 CDT CPT-OV Office Visit 15:49:22 CDT CPT-OV Office Visit 17:16:31 CDT CPT-OV Office Visit 10:43:31 CDT
--- OUTSIDE RECORDS SUMMARY | 2019-02-09 12:17 | XMS REPORT | Clinical Summary ---
Author Author Renaldo, Florecita Munoz Organization [facility] Address Unknown Phone Unavailable Allergies, Adverse [...] PhD Hyperpotassemia GERD 530.81 Resolved Kylie Yokum CARD DECORATOR Esophageal reflux Health maintenance exam V70.0 Resolved Adolfo Yates MD Routine general medical examination at a health care facility Anemia 285.9 Resolved Kylie Yanet CARD DECORATOR Anemia, unspecified Personal history of malignant neoplasm of large intestine V10.05 Active Adam Yates MD Personal history of malignant neoplasm of large intestine Hypomagnesemia 275.2 Resolved Kylie Yanet CARD DECORATOR Disorders of magnesium metabolism Weakness 780.79 Resolved [...] Sebaceous cyst, scalp 706.2 Resolved Kylie Yokum CARD DECORATOR Sebaceous cyst Cervical lymphadenopathy, anterior, left 785.6 Resolv ed Kylie Yokum CARD DECORATOR Enlargement of lymph nodes Need for prophylactic vaccination and inoculation against in fluenza V04.81 Resolved Aadm Yates MD Need for prophylactic vaccination and inoculation against influenza Preventive health care V70.0 Resolved Kylie Escalonaku m CARD DECORATOR Routine general medical examination at a health care facility Thyroid nodule, left 241.0 Active Kylie Yokum A PRN Nontoxic uninodular goiter Screening mammogram V76.12 Resolved Kylie Yokum A PRN Other screening mammogram Mandy 706.2 Resolved Kylie Yokum CARD DECORATOR Sebaceous cyst Colon cancer, ascending 153.6 Resolved Kylie Yok um CARD DECORATOR Malignant neoplasm of ascending colon Foot pain, left 729.5 Resolved Kylie Yokum CARD DECORATOR Pain in limb Splinter 919.6 Resolved Kylie Yokum CARD DECORATOR Superficial foreign body (splinter) of other, multiple, and unspecified sites, without major open wound and without mention of infection Rash 782.1 Resolved Kylie Yokum CARD DECORATOR Rash and other nonspecific skin eruption Cyst 706.2 Resolved Kylie Yokum CARD DECORATOR Sebaceous cyst Body Mass Index 23.0-23.9 Adult Active Kylie Yokum CARD DECORATOR Body Mass Index between 19-24, adult Unspecified fall, initial encounter E888.9 Inactive Kylieshubham Holt CARD DECORATOR Unspecified fall Eye pain, left 379.91 Inactive Kylie Yogabbium CARD DECORATOR Pain in or around eye Pharyngitis, acute 074.0 Active Kylieshubham Holt APR N Herpangina ABDOMINAL PAIN, RIGHT LOWER QUADRANT ICD-789.03 Inactive Kina Joshua CARD DECORATOR ADENOCARCINOMA, COLON, 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 Dick Yates MD ABDOMINAL PAIN, GENERALIZED ICD-789.07 Inactive Hope Benavidez MD PhD FEVER UNSPECIFIED ICD-780.60 Inactive Hope cohn MD PhD UNSPECIFIED VENOUS INSUFFICIENCY ICD-459.81 Elda ctive Adam Yates MD ADENOCARCINOMA, 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 Inac tive Hope Benavidez MD PhD Hyperkalemia ICD-276.7 Inactive Hope Benavidez MD PhD GERD ICD-530.81 Inactive Kylie Lundum CARD DECORATOR 2015 Health maintenance exam ICD-V70.0 Bam Yates MD Anemia ICD-285.9 Inactive Kylie Lundum CARD DECORATOR 07/24 Hypomagnesemia ICD-275.2 Inactive Kylie Yokum CARD DECORATOR Weakness ICD-780.79 Inactive Hope Benavidez MD P [...] cyst, scalp ICD-706.2 Inactive Tracy hi Yokum CARD DECORATOR Cervical lymphadenopathy, anterior, left ICD-785.6 Inactive Kylie Yokum CARD DECORATOR Need for prophylactic vaccination and inoculation against in fluenza ICD-V04.81 Inactive Adam Yates MD Preventive health care ICD-V70.0 Inactive Ka thi Yokum CARD DECORATOR Screening mammogram ICD-V76.12 Inactive Kylie Yokum CARD DECORATOR Mandy ICD-706.2 Inactive Kylie Yokum CARD DECORATOR 07/20 Colon cancer, ascending ICD-153.6 Inactive K athi Yokum CARD DECORATOR Foot pain, left ICD-729.5 Inactive Kylie Yokum CARD DECORATOR Splinter ICD-919.6 Inactive Kylie Yokum CARD DECORATOR 2017 Rash ICD-782.1 Inactive Kylie Yokum CARD DECORATOR 07/25 Cyst ICD-706.2 Inactive Kylie Holt CARD DECORATOR 08/11 Unspecified fall, initial encounter ICD-E888.9 Inactive Kylie Holt CARD DECORATOR Eye pain, left ICD-379.91 Inactive Kylie Holt CARD DECORATOR Medication List Medication Instructions Start Date Stop Date Generic Name ND Status Provider Patient Instruction IMODIUM A-D 2 MG ORAL TABLET 1 tablet twice a day LOPERAMIDE HCL 62209652827 Active Kylie Holt CARD DECORATOR Active VOLTAREN 1 % TRANSDERMAL GEL apply q 6-8 hour to left arm as needed for pain DICLOFENAC SODIUM 75133175872 Active Kylie Holt APRN Active COQ10 100 MG ORAL CAPSULE 1 daily COENZYME Q10 713032 65920 Active LETY Nation Active VITAMIN D3 2000 UNIT ORAL CAPSULE Melaleuca-One daily CHOLECALCIFEROL 37685178624 Active Kylie Holt APRN Active PROBIOTIC DAILY ORAL CAPSULE Take one daily PROBIO TIC PRODUCT 22156443437 Active Kylie Holt APRN Active IRON 325 (65 Fe) MG ORAL TABLET 1 every other day FERROUS SULFATE 95500799231 No Longer Active Kylie Holt APRN Active FLORANEX ORAL PACKET 1 pack three times daily, for bowel health LACTOBACILLUS 66272565780 No Longer Active Kylie Holt APRN Active LOMOTIL 2.5-0.025 MG ORAL TABLET 1 tab by mouth prn 23/10/23 DIPHENOXYLATE-ATROPINE 36146427860 No Longer Active Kylie Lundum CARD DECORATOR Active MAGNESIUM GLUCONATE 250 MG ORAL TABLET 1 tab tid 23/10/23 MAGNESIUM GLUCONATE 46947839097 No Longer Active Kylie Lundum CARD DECORATOR Active CYANOCOBALAMIN 1000 MCG/ML INJECTION SOLUTION 1 injection ev ruben 2 weeks CYANOCOBALAMIN 14306298801 No Longer Active Kylie Lund um CARD DECORATOR Active ATENOLOL 25 MG ORAL TABLET 1/2 pill by mouth daily, fo r headaches, blood pressure ATENOLOL 40437456877 Active Kylie Escalonagabbioliver CARD DECORATOR Active PROPRANOLOL HCL 80 MG ORAL TABLET 1 tab tue. and thur. PROPRANOLOL HCL 44176553730 No Longer Active Hope Benavidez MD PhD A ctive VITAMIN D3 4000 IU 1 tab 3 times daily VITAMIN D3 4000 IU No Longer Active Hope Benavidez MD PhD Active BACTRIM DS 800-160 MG ORAL TABLET 1 pill by mouth twice claudio y, for UTI SULFAMETHOXAZOLE-TRIMETHOPRIM 24606149710 No Longer Active Hope Benavidez MD PhD Active PROLIA 60 MG/ML SUBCUTANEOUS SOLUTION 1 shot every 6 months for osteoprosis DENOSUMAB 97407707362 Active Hope Benavidez MD PhD Active CALCIUM + D + K 750-500-40 MG-UNT-MCG ORAL TABLET 1 tab by m outh twice daily CALCIUM-VITAMIN D-VITAMIN K 50467405260 Active Hope valdez MD PhD Active DAILY VALUE MULTIVITAMIN ORAL TABLET 1 tab by mouth twice daily 201 05/16/14 MULTIPLE VITAMIN 98785399864 Active Hope Benavidez MD PhD Acti ve FISH OIL 306 MG CAPS 1 tab by mouth three times daily OMEGA-3 FATTY ACIDS 67321723733 Active Hope Benavidez MD PhD Active LUTEIN 10 MG ORAL TABLET 1 tab daily LUTEIN 36944297 408 Active Hope Benavidez MD PhD Active TRIAMTERENE-HCTZ 37.5-25 MG ORAL TABLET 1 tab by mouth daily 10/22 TRIAMTERENE-HCTZ 65392821828 Active Kylie Holt APRN Active CYCLOBENZAPRINE HCL 10 MG ORAL TABLET 1 tablet by mout h three times daily as needed for headaches CYCLOBENZAPRINE HCL 99628194045 No Longer Active Adam Yates MD Active OMEPRAZOLE 20 MG ORAL CAPSULE DELAYED RELEASE 1 tablet by mo uth daily for GERD OMEPRAZOLE 68406366109 No Longer Active Adam Yates MD Active ZOFRAN 8 MG ORAL TABLET 1 tab by mouth every 12 hours prn 4 ONDANSETRON HCL 29344346573 No Longer Active Adam Yates MD Active PHENADOZ 25 MG RECTAL SUPPOSITORY 1 every 4 hrs. PRN 2 PROMETHAZINE HCL 56162581645 No Longer Active Adam Yates MD A ctive POTASSIUM CHLORIDE 20 MEQ ORAL PACKET by mouth twice a day prn 2 POTASSIUM CHLORIDE 08666694243 No Longer Active Adam Carpenter MD Active PROMETHAZINE HCL 25 MG ORAL TABLET 1 Q. 4 hr. PRN PROMETHAZINE HCL 08179617368 No Longer Active Adam Yates MD Active INNOPRAN XL 120 MG ORAL CAPSULE EXTENDED RELEASE 24 HO UR Take one by mouth daily PROPRANOLOL HCL SR BEADS 40186040186 No Longer Active Adam Yates MD Active FLAGYL 500 MG ORAL TABLET 1 pill by mouth three times daily, for diarrhea METRONIDAZOLE 19187336683 No Longer Active Hope landers MD PhD Active DYAZIDE 37.5-25 MG ORAL CAPSULE 1 qd TRIA MTERENE-HCTZ 86282070072 No Longer Active Hope Benavidez MD PhD Active PROZAC 20 MG ORAL CAPSULE 1 q d FLUOXETINE HCL 93142998561 No Longer Active Hope Benavidez MD PhD Active SIMVASTATIN 40 MG ORAL TABLET 1 qd SIMVAS TATIN 09668488768 No Longer Active Adam Yates MD Active MELOXICAM 15 MG ORAL TABLET 1 qd MELOXICAM 05915109166 No Longer Active Adam Yates MD Active EXCEDRIN EXTRA STRENGTH 250-250-65 MG ORAL TABLET 1-2 q6h MT N headache [id number] 47797675425 Active Hope Benavidez MD PhD Active FLAGYL 500 MG ORAL TABLET 1 qid METRONIDAZOL E 78269581338 No Longer Active Adam Yates MD Active LEVAQUIN 750 MG ORAL TABLET 1 qd LEVOFLOXAC IN 78962195454 No Longer Active Adam Yates MD Active ADULT ASPIRIN LOW STRENGTH 81 MG ORAL TABLET DISINTEGRATING 1 qd ASPIRIN 14845225559 Active Hope Benavidez MD PhD Active LEVAQUIN 750 MG ORAL TABLET 1 qd LEVAQUIN 750 MG ORAL TABLET 135244 LEVOFLOXACIN Inactive FLAGYL 500 MG ORAL TABLET 1 qid FLAGYL 500 MG ORAL TABLET 956420 METRONIDAZOLE Inactive MELOXICAM 15 MG ORAL TABLET 1 qd MELOXICAM 15 MG ORAL TABLET 045547 MELOXICAM Inactive SIMVASTATIN 40 MG ORAL TABLET 1 qd SIMVASTATIN 40 MG ORAL TABLET 972792 SIMVASTATIN Inactive PROZAC 20 MG ORAL CAPSULE 1 q d PROZAC 20 MG ORAL CAPSULE 661321 FLUOXETINE HCL Inactive DYAZIDE 37.5-25 MG ORAL CAPSULE 1 qd 5 DYAZIDE 37.5-25 MG ORAL CAPSULE 227705 TRIAMTERENE-HCTZ Inactive INNOPRAN XL 120 MG ORAL CAPSULE EXTENDED RELEASE 24 HO UR Take one by mouth daily INNOPRAN XL 120 MG ORAL CAPSULE EXTENDED RELEASE 24 HOUR PROPRANOLOL HCL SR BEADS Inactive PROMETHAZINE HCL 25 MG ORAL TABLET 1 Q. 4 hr. PRN 2013 PROMETHAZINE HCL 25 MG ORAL TABLET 768470 PROMETHAZINE HCL Inactive POTASSIUM CHLORIDE 20 MEQ ORAL PACKET by mouth twice a day prn 2 POTASSIUM CHLORIDE 20 MEQ ORAL PACKET 3127071 POTASSIUM CHLORIDE Inactive PHENADOZ 25 MG RECTAL SUPPOSITORY 1 every 4 hrs. PRN 2 PHENADOZ 25 MG RECTAL SUPPOSITORY 605084 PROMETHAZINE HCL Inactive ZOFRAN 8 MG ORAL TABLET 1 tab by mouth every 12 hours prn 4 ZOFRAN 8 MG ORAL TABLET 298936 ONDANSETRON HCL Inactive OMEPRAZOLE 20 MG ORAL CAPSULE DELAYED RELEASE 1 tablet by mo [facility] daily for GERD OMEPRAZOLE 20 MG ORAL CAPSULE DELAYED RELEASE 19 8051 OMEPRAZOLE Inactive CYCLOBENZAPRINE HCL 10 MG ORAL TABLET 1 tablet by mout h three times daily as needed for headaches CYCLOBENZAPRINE HCL 10 MG ORAL TABLET 050215 CYCLOBENZAPRINE HCL Inactive VITAMIN D3 4000 IU 1 tab 3 times daily VITAMIN D3 4000 IU Inactive PROPRANOLOL HCL 80 MG ORAL TABLET 1 tab tue. and thur. PROPRANOLOL HCL 80 MG ORAL TABLET 382440 PROPRANOLOL HCL Inacti ve CYANOCOBALAMIN 1000 MCG/ML INJECTION SOLUTION 1 injection ev ruben 2 weeks CYANOCOBALAMIN 1000 MCG/ML INJECTION SOLUTION 30 9594 CYANOCOBALAMIN Inactive MAGNESIUM GLUCONATE 250 MG ORAL TABLET 1 tab tid 23/10/23 MAGNESIUM GLUCONATE 250 MG ORAL TABLET 359801 MAGNESIUM GLUCONATE Inactive LOMOTIL 2.5-0.025 MG ORAL TABLET 1 tab by mouth prn 23/10/23 LOMOTIL 2.5-0.025 MG ORAL TABLET 0038712 DIPHENOXYLATE-ATROPINE Inac tive FLORANEX ORAL PACKET 1 pack three times daily, for bowel health FLORANEX ORAL PACKET 08180384664 LACTOBACILLUS Inactive IRON 325 (65 Fe) MG ORAL TABLET 1 every other day 2015 IRON 325 (65 Fe) MG ORAL TABLET 148252 FERROUS SULFATE Inactive FLAGYL 500 MG ORAL TABLET 1 pill by mouth three times daily, for diarrhea FLAGYL 500 MG ORAL TABLET 106801 METRONIDAZOLE I nactive BACTRIM DS 800-160 MG ORAL TABLET 1 pill by mouth twice claudio y, for UTI BACTRIM DS 800-160 MG ORAL TABLET 477282 SULFAMETHOXAZOLE-TRIMETHOPRIM Inactive Advance Directives Directive Description Start [...] 4.0 mmol/L 3.5-5.2 sodium, serum 138 mmol/L 486-756 2784/12/15 calcium, serum 9.1 mg/dL 8.5-10.1 urea nitrogen, [...] 23 mg/dL 7-18 sodium, serum 142 mmol/L 720-710 6526/04/19 creatinine, serum 1.33 mg/dL 0.60-1.30 alanine aminotransferase [...] mg/dL Encounters Code Encounter Date Provider Facility CPT-52376 [id number] Vst-Est Level III 14:29:19 CDT Fiorella Holt [facility] CPT-62640 Level 2 Est. Patient 14:58:26 CDT Kylie Lund [facility] CPT-60475 Level 3 Est. Patient 08:15:24 BED PLACEMENT COORDINATOR Kylie Lund [facility] CPT-27097 Level 2 Est. Patient 14:27:16 BED PLACEMENT COORDINATOR Kylie Lund [facility] CPT-39363 Level 3 Est. Patient 17:54:48 CDT Kylie Lund [facility] CPT-12258 Level 3 Est. Patient 16:26:30 CDT Kinachrista blackmon [facility] CPT-94134 Level 3 New Patient 16:22:01 BED PLACEMENT COORDINATOR Adam Yates MD [facility] CPT-63532 Level 4 Est. Patient 17:00:48 CDT Kylie Lund [facility] CPT-99625 Level 3 Est. Patient 13:15:54 CDT Kylie Escalonagabbi [facility] CPT-48556 Level 3 Est. Patient 09:10:11 CDT Kylie Escalonagabbi [facility] CPT-45345 Level 4 Est. Patient 12:08:30 BED PLACEMENT COORDINATOR Hope cohn MD PhD [facility] CPT-71180 Level 4 Est. Patient 19:08:42 BED PLACEMENT COORDINATOR Hope cohn MD PhD [facility] CPT-00951 Level 4 Est. Patient 20:04:51 CDT Hope cohn MD PhD [facility] CPT-84395 Level 3 New Patient 01:46:11 BED PLACEMENT COORDINATOR Hope landers MD PhD [facility] Procedures Code Procedure Name Date Entry Date Standard Desc ription CPT-G0439 Subsequent Annual Wellness Exam 14:29:19 CDT CPT-85188 Venipuncture Draw Fee 10:59:04 CDT CPT-23153 CMP - LAB USE ONLY 10:59:04 CDT CPT-95698 CBC with Diff - LAB USE ONLY 10:59:03 CDT 2 CPT-J0897 Prolia 60 mg 15:46:54 BED PLACEMENT COORDINATOR CPT-78741 Abx/Therapy Injection 15:46:54 BED PLACEMENT COORDINATOR CPT-26614 Microalbumin - LAB USE ONLY 09:41:32 BED PLACEMENT COORDINATOR 20 23/01/15 CPT-75943 Free T4 - LAB USE ONLY 09:41:32 BED PLACEMENT COORDINATOR CPT-41237 TSH - LAB USE ONLY 09:41:32 BED PLACEMENT COORDINATOR CPT-80925 BMP - LAB USE ONLY 09:41:32 BED PLACEMENT COORDINATOR CPT-55480 Venipuncture Draw Fee 09:41:32 BED PLACEMENT COORDINATOR CPT-92990 First Vx - Ix admin for Medicare patients 11:19:30 CDT CPT-83798 Fluzone High-Dose Intramuscular Suspension 12/07 11:19:30 CDT CPT-J0897 Prolia 60 mg 14:55:42 CDT CPT-89740 Abx/Therapy Injection 14:55:42 CDT CPT-42626 Bone Density - XRAY USE ONLY 10:27:12 CDT 2 CPT-G0439 Subsequent Annual Wellness Exam 17:54:53 CDT CPT-49616 Foot, left, comp min 3V - XRAY USE ONLY 12:22:49 CDT CPT-G0009 Administration of Pneumococcal Vaccine 3 12:18:00 CDT CPT-98183 Pneumovax 23 Injection Injectable 25 MCG /0.5ML 12:18:00 CDT CPT-J0897 Prolia 60 mg 14:14:16 BED PLACEMENT COORDINATOR CPT-62995 Abx/Therapy Injection 14:14:15 BED PLACEMENT COORDINATOR CPT-61539 Lipid - LAB USE ONLY 10:01:52 BED PLACEMENT COORDINATOR 2 CPT-50859 Calcium - LAB USE ONLY 10:01:51 BED PLACEMENT COORDINATOR CPT-68514 Venipuncture Draw Fee 10:01:51 BED PLACEMENT COORDINATOR CPT-LR Lesion Removal 16:22:01 BED PLACEMENT COORDINATOR CPT-93173 TSH - LAB USE ONLY 14:26:02 CDT CPT-58044 CMP - LAB USE ONLY 14:26:01 CDT CPT-91717 CBC with Diff - LAB USE ONLY 14:26:01 CDT 2 CPT-07628 Venipuncture Draw Fee 14:26:01 CDT CPT-91342 First Vx - Ix admin for Medicare patients 13:27:08 CDT CPT-92394 Fluzone High-Dose Intramuscular Suspension 11/26 13:27:08 CDT CPT-G0438 Initial Annual Wellness Exam 14:19:57 CD T CPT-G0009 Administration of Pneumococcal Vaccine 9 11:36:25 CDT CPT-90650 Prevnar 13 Intramuscular Suspension 1 1:36:25 CDT CPT-32534 Prevnar 13 Intramuscular Suspension 1 0:40:58 CDT CPT-J0897 Prolia 60 mg 10:37:16 CDT CPT-38865 Abx/Therapy Injection 10:37:16 CDT CPT-J0897 Prolia 60 mg 16:09:34 BED PLACEMENT COORDINATOR CPT-J0897 Prolia 60 mg 11:10:35 BED PLACEMENT COORDINATOR CPT-56683 Abx/Therapy Injection 11:10:35 BED PLACEMENT COORDINATOR CPT-000 Give Appropriate Flu Vaccine 17:01:15 BED PLACEMENT COORDINATOR 2 CPT-24468 Fluzone High Dose (65+) 15:03:08 BED PLACEMENT COORDINATOR 02/15 CPT-14986 Immunization Single Admin 15:03:08 BED PLACEMENT COORDINATOR 2014 CPT-OV Office Visit 15:58:06 CDT CPT-J0897 Prolia 60 mg 08:45:38 CDT CPT-59571 Abx/Therapy Injection 08:45:38 CDT CPT-J3420 Vitamin B12 1000mcg (Cyanocobalamin) 09:26:20 BED PLACEMENT COORDINATOR CPT-17807 Abx/Therapy Injection 09:26:20 BED PLACEMENT COORDINATOR CPT-J3420 Vitamin B12 1000mcg (Cyanocobalamin) 09:44:40 BED PLACEMENT COORDINATOR CPT-36161 Abx/Therapy Injection 09:44:40 BED PLACEMENT COORDINATOR CPT-J3420 Vitamin B12 1000mcg (Cyanocobalamin) 09:15:54 BED PLACEMENT COORDINATOR CPT-77198 Abx/Therapy Injection 09:15:54 BED PLACEMENT COORDINATOR CPT-J3420 Vitamin B12 1000mcg (Cyanocobalamin) 09:46:44 BED PLACEMENT COORDINATOR CPT-80936 Abx/Therapy Injection 09:46:44 BED PLACEMENT COORDINATOR CPT-J3420 Vitamin B12 1000mcg (Cyanocobalamin) 09:47:34 BED PLACEMENT COORDINATOR CPT-08752 Abx/Therapy Injection 09:47:34 BED PLACEMENT COORDINATOR CPT-J3420 Vitamin B12 1000mcg (Cyanocobalamin) 14:35:50 BED PLACEMENT COORDINATOR CPT-J3420 Vitamin B12 1000mcg (Cyanocobalamin) 09:25:05 BED PLACEMENT COORDINATOR CPT-32309 Abx/Therapy Injection 09:25:05 BED PLACEMENT COORDINATOR CPT-G0008 Administration of Influenza Virus Vaccine 13:36:47 CDT CPT-78604 Fluzone High-Dose Intramuscular Suspension 11/15 13:36:47 CDT CPT-J0897 Prolia 60 mg 08:50:41 CDT CPT-39286 Abx/Therapy Injection 08:50:41 CDT CPT-07102 Bone Density 12:06:12 CDT CPT-13695 Bone Density 08:54:40 CDT CPT-OV Office Visit 15:37:02 CDT CPT-13538 Postop F/U Visit 15:47:49 CDT CPT-24434 Postop F/U Visit 15:21:02 CDT CPT-TCM Transitional Care Mgmt-High 07:52:27 CDT 20 20/06/01 CPT-71165 Venipuncture Draw Fee 13:51:18 CDT CPT-55513 Venipuncture Draw Fee 10:14:55 BED PLACEMENT COORDINATOR CPT-26381 Venipuncture Draw Fee 13:39:45 BED PLACEMENT COORDINATOR CPT-OV Office Visit 15:11:22 BED PLACEMENT COORDINATOR CPT-60969 Venipuncture Draw Fee 09:20:49 BED PLACEMENT COORDINATOR CPT-36644 Venipuncture Draw Fee 16:52:15 BED PLACEMENT COORDINATOR CPT-84045 Venipuncture Draw Fee 10:37:24 BED PLACEMENT COORDINATOR CPT-68602 Venipuncture Draw Fee 08:21:21 BED PLACEMENT COORDINATOR CPT-36694 Venipuncture Draw Fee 08:30:20 BED PLACEMENT COORDINATOR CPT-46737 Venipuncture Draw Fee 14:53:21 BED PLACEMENT COORDINATOR CPT-60976 Venipuncture Draw Fee 09:40:56 BED PLACEMENT COORDINATOR CPT-51773 Venipuncture Draw Fee 10:30:47 BED PLACEMENT COORDINATOR CPT-59069 Venipuncture Draw Fee 10:46:17 BED PLACEMENT COORDINATOR CPT-76922 Venipuncture Draw Fee 11:12:45 BED PLACEMENT COORDINATOR CPT-11017 Venipuncture Draw Fee 09:53:33 BED PLACEMENT COORDINATOR CPT-23536 Venipuncture Draw Fee 11:53:51 BED PLACEMENT COORDINATOR CPT-47310 Venipuncture Draw Fee 10:33:50 BED PLACEMENT COORDINATOR CPT-77870 Venipuncture Draw Fee 10:05:01 BED PLACEMENT COORDINATOR CPT-55974 Venipuncture Draw Fee 14:32:52 BED PLACEMENT COORDINATOR CPT-35296 Venipuncture Draw Fee 09:46:13 BED PLACEMENT COORDINATOR CPT-46286 Venipuncture Draw Fee 11:34:27 BED PLACEMENT COORDINATOR CPT-07590 Venipuncture Draw Fee 13:17:16 BED PLACEMENT COORDINATOR CPT-90046 Venipuncture Draw Fee 12:05:39 CDT CPT-37872 Venipuncture Draw Fee 12:49:12 CDT CPT-04416 Venipuncture Draw Fee 12:37:18 CDT CPT-16847 Venipuncture Draw Fee 10:57:11 CDT CPT-02017 Venipuncture Draw Fee 13:47:40 CDT CPT-06209 Venipuncture Draw Fee 10:02:17 CDT CPT-81627 TB Tubersol 17:32:32 CDT CPT-OV Office Visit 16:21:53 CDT CPT-OV Office Visit 15:49:22 CDT CPT-OV Office Visit 17:16:31 CDT CPT-OV Office Visit 10:43:31 CDT
--- OUTSIDE RECORDS SUMMARY | 2019-02-09 12:17 | XMS REPORT | Clinical Summary ---
Author Author Admin, Florecita Munoz Organization [facility] Address Unknown Phone Unavailable Allergies, Adverse Reactions, [...] care facility Anemia 285.9 Resolved Kylie Yanet REYES Anemia, unspecified Personal history of malignant neoplasm [...] PhD Diarrhea Diarrhea, functional 564.5 Active Kylie Gonzalez PRN Functional diarrhea Osteoporosis 733.00 Active Hope Benavidez MD PhD Osteoporosis, unspecified Dysuria 788.1 Resolved Hope Benavidez MD PhD Dysuria Vitamin D deficiency 268.9 Active Hope Benavidez MD PhD Unspecified vitamin D deficiency Peripheral neuropathy 356.9 Active Hope Benavidez MD PhD Unspecified hereditary and idiopathic peripheral neuropathy Vitamin B12 deficiency 266.2 Active Citlaly Angel ord RMA Other B-complex deficiencies Adenocarcinoma, ascending colon 153.6 Active 2014 Kelsy Mckeon RMA Malignant neoplasm of ascending colon Sebaceous cyst, scalp 706.2 Resolved Kylie Yogabbium E D TECH Sebaceous cyst Cervical lymphadenopathy, anterior, left 785.6 Resolv ed Kylie Yopari E D TECH Enlargement of lymph nodes Need for prophylactic vaccination and inoculation against in fluenza V04.81 Active Citlaly Watkins RMA Need for prophylactic vaccination and inoculation against influenza Preventive health care V70.0 Active Kylie Holt E D TECH Routine general medical examination at a health care facility Thyroid nodule, left 241.0 Active Kylie Holt A PRN Nontoxic uninodular goiter ABDOMINAL PAIN, RIGHT LOWER QUADRANT ICD-789.03 Inactive Kina Joshua E D TECH ADENOCARCINOMA, COLON, 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 Dick Yates MD ABDOMINAL PAIN, GENERALIZED ICD-789.07 Inactive Hope Benavidez MD PhD FEVER UNSPECIFIED ICD-780.60 Inactive Hope cohn MD PhD UNSPECIFIED VENOUS INSUFFICIENCY ICD-459.81 Elda ctive Adam Yates MD ADENOCARCINOMA, 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 Inac tive Hope Benavidez MD PhD Hyperkalemia ICD-276.7 Inactive Hope Benavidez MD PhD GERD ICD-530.81 Inactive Kylie Holt E D TECH 2015 Health maintenance exam ICD-V70.0 Bam Yates MD Anemia ICD-285.9 Inactive Kylieshubham Lundum E D TECH 07/24 Weakness ICD-780.79 Inactive Hope Benavidez MD P hD Aftercare following surgery of the teeth,oral cavity a nd digestive system, NEC ICD-V58.75 Inactive Adam Yates MD Colon cancer ICD-153.9 Inactive Adam luna MD Asymptomatic postmenopausal status (age-related) (natural) I CD-V49.81 Inactive Hope Benavidez MD PhD Dysuria ICD-788.1 Inactive Hope Benavidez MD PhD 201 05/19/01 Sebaceous cyst, scalp ICD-706.2 Inactive Tracy Lundum E D TECH Cervical lymphadenopathy, anterior, left ICD-785.6 Inactive Kylie Lundum E D TECH Medication List Medication Instructions Start Date Stop Date Generic Name NDC Status Provider Patient Instruction VITAMIN D3 2000 UNIT ORAL CAPS Melaleuca-One daily CHOLECALCIFEROL 37253522568 Active Kylie Escalonakum E D TECH Active PROBIOTIC DAILY ORAL CAPS Take one daily PROBIOTIC PRODUCT 89798247547 Active Kylie Yokum E D TECH Active IRON 325 (65 FE) MG TABS 1 every other day FERR OUS SULFATE 02086260513 No Longer Active Kylie Yokum E D TECH Active FLORANEX PACK 1 pack three times daily, for bowel health LACTOBACILLUS 53016452185 No Longer Active Kylie Yokum E D TECH Active LOMOTIL 2.5-0.025 MG TABS 1 tab by mouth prn 4 DIPHENOXYLATE-ATROPINE 39819758136 No Longer Active Kylie Yokum E D TECH Active MAGNESIUM GLUCONATE 250 MG TABS 1 tab tid 4 MAGNESIUM GLUCONATE 34767252869 No Longer Active Kylie Kevonum E D TECH Active CYANOCOBALAMIN 1000 MCG/ML INJ SOLN 1 injection every 2 weeks 20 20/01/03 CYANOCOBALAMIN 48393261269 No Longer Active Kylieshubham Lundum E D TECH Active ATENOLOL 25 MG ORAL TABS 1/2 pill by mouth daily, for headac hes, blood pressure ATENOLOL 14003231546 Active Kylie Yokum E D TECH Active PROPRANOLOL HCL 80 MG TABS 1 tab tue. and thur. 04/10 PROPRANOLOL HCL 96399666901 No Longer Active Hope Benavidez MD PhD A ctive VITAMIN D3 4000 IU 1 tab 3 times daily VITAMIN D3 4000 IU No Longer Active Hope Benavidez MD PhD Active BACTRIM DS 800-160 MG TABS 1 pill by mouth twice daily, for UTI SULFAMETHOXAZOLE-TRIMETHOPRIM 49276497477 No Longer Active A attila Benavidez MD PhD Active PROLIA 60 MG/ML SOLN 1 shot every 6 months for osteoprosis DENOSUMAB 08348943355 Active Hope Benavidez MD PhD Active CALCIUM + D + K 750-500-40 MG-UNT-MCG TABS 1 tab by mouth tw ice daily CALCIUM-VITAMIN D-VITAMIN K 04514341267 Active Hope landers MD PhD Active DAILY VALUE MULTIVITAMIN TABS 1 tab by mouth twice daily MULTIPLE VITAMIN 89627941975 Active Hope Benavidez MD PhD Active FISH OIL 306 MG CAPS 1 tab by mouth three times daily OMEGA-3 FATTY ACIDS 39658489323 Active Hope Benavidez MD PhD Active LUTEIN 10 MG TABS 1 tab daily LUTEIN 33000475354 Act cash Hope Benavidez MD PhD Active TRIAMTERENE-HCTZ 37.5-25 MG TABS 1 tab by mouth daily TRIAMTERENE-HCTZ 78049967052 Active Kylie Holt E D TECH Active CYCLOBENZAPRINE HCL 10 MG TABS 1 tablet by mouth three times daily as needed for headaches CYCLOBENZAPRINE HCL 65589766153 No Longe r Active Adam Yates MD Active OMEPRAZOLE 20 MG CPDR 1 tablet by mouth daily for GERD OMEPRAZOLE 28648500239 No Longer Active Adam Yates MD A ctive ZOFRAN 8 MG TABS 1 tab by mouth every 12 hours prn 201 05/16/09 ONDANSETRON HCL 67097972839 No Longer Active Adam Yates MD Active PHENADOZ 25 MG SUPP 1 every 4 hrs. PRN PROMETHA ZINE HCL 61675177254 No Longer Active Adam Yates MD Active POTASSIUM CHLORIDE 20 MEQ PACK by mouth twice a day prn POTASSIUM CHLORIDE 07076791575 No Longer Active Adam Yates MD Active PROMETHAZINE HCL 25 MG TABS 1 Q. 4 hr. PRN PROM ETHAZINE HCL 03489122018 No Longer Active Adam Yates MD Active INNOPRAN XL 120 MG [id number] Take one by mouth daily 2 PROPRANOLOL HCL SR BEADS 82435797658 No Longer Active Adam Yates MD A ctive FLAGYL 500 MG TABS 1 pill by mouth three times daily, for diarrh ea METRONIDAZOLE 15470277678 No Longer Active Hope Benavidez MD PhD Active DYAZIDE 37.5-25 MG CAPS 1 qd TRIAMTERENE-HC TZ 60817859282 No Longer Active Hope Benaviedz MD PhD Active PROZAC 20 MG CAPS 1 q d FLUOXETINE HCL 54690 535962 No Longer Active Hope Benavidez MD PhD Active SIMVASTATIN 40 MG TABS 1 qd SIMVASTATIN 004 61756014 No Longer Active Adam Yates MD Active MELOXICAM 15 MG TABS 1 qd MELOXICAM 3433358 2240 No Longer Active Adam Yates MD Active IMODIUM A-D 2 MG TABS 2 onset at diarrhea and prn. LOPERAMIDE HCL 23111959811 Active Hope Benavidez MD PhD Active EXCEDRIN EXTRA STRENGTH 250-250-65 MG TABS 1-2 q6h PRN headache 201 04/16/21 [id number] 33238671900 Active Hope Benavidez MD PhD Active FLAGYL 500 MG TABS 1 qid METRONIDAZOLE 56304 844812 No Longer Active Adam Yates MD Active LEVAQUIN 750 MG TABS 1 qd LEVOFLOXACIN 5486 8619607 No Longer Active Adam Yates MD Active ADULT ASPIRIN LOW STRENGTH 81 MG TBDP 1 qd A SPIRIN 99689850222 Active Hope Benavidez MD PhD Active LEVAQUIN 750 MG TABS 1 qd LEVAQUIN 750 MG T ABS 021748 LEVOFLOXACIN Inactive FLAGYL 500 MG TABS 1 qid FLAGYL 500 MG TABS 518509 METRONIDAZOLE Inactive MELOXICAM 15 MG TABS 1 qd MELOXICAM 15 MG T ABS 253332 MELOXICAM Inactive SIMVASTATIN 40 MG TABS 1 qd SIMVASTATIN 40 MG TABS 482472 SIMVASTATIN Inactive PROZAC 20 MG CAPS 1 q d PROZAC 20 MG CAPS 31 0385 FLUOXETINE HCL Inactive DYAZIDE 37.5-25 MG CAPS 1 qd DYAZIDE 37.5 -25 MG CAPS 336341 TRIAMTERENE-HCTZ Inactive INNOPRAN XL 120 MG [id number] Take one by mouth daily 2 INNOPRAN XL 120 MG [id number] PROPRANOLOL HCL SR BEADS Inactive PROMETHAZINE HCL 25 MG TABS 1 Q. 4 hr. PRN PROMETHAZINE HCL 25 MG TABS 874199 PROMETHAZINE HCL Inactive POTASSIUM CHLORIDE 20 MEQ PACK by mouth twice a day prn POTASSIUM CHLORIDE 20 MEQ PACK 093504 POTASSIUM CHLORIDE Inactive PHENADOZ 25 MG SUPP 1 every 4 hrs. PRN PHENADOZ 2 5 MG SUPP 691813 PROMETHAZINE HCL Inactive ZOFRAN 8 MG TABS 1 tab by mouth every 12 hours prn 201 05/16/09 ZOFRAN 8 MG TABS 431635 ONDANSETRON HCL Inactive OMEPRAZOLE 20 MG CPDR 1 tablet by mouth daily for GERD OMEPRAZOLE 20 MG CPDR 871112 OMEPRAZOLE Inactive CYCLOBENZAPRINE HCL 10 MG TABS 1 tablet by mouth three times daily as needed for headaches CYCLOBENZAPRINE HCL 10 MG TABS 730679 CYCLOBENZAPRINE HCL Inactive VITAMIN D3 4000 IU 1 tab 3 times daily VITAMIN D3 4000 IU Inactive PROPRANOLOL HCL 80 MG TABS 1 tab tue. and thur. 04/10 PROPRANOLOL HCL 80 MG TABS 453491 PROPRANOLOL HCL Inactive CYANOCOBALAMIN 1000 MCG/ML INJ SOLN 1 injection every 2 weeks 20 20/01/03 CYANOCOBALAMIN 1000 MCG/ML INJ SOLN 847236 CYANOCOBALAM IN Inactive MAGNESIUM GLUCONATE 250 MG TABS 1 tab tid 4 MAGNESIUM GLUCONATE 250 MG TABS 392271 MAGNESIUM GLUCONATE Inactive LOMOTIL 2.5-0.025 MG TABS 1 tab by mouth prn 4 LOMOTIL 2.5- 0.025 MG TABS 7955455 DIPHENOXYLATE-ATROPINE Inactive FLORANEX PACK 1 pack three times daily, for bowel health FLORANEX PACK LACTOBACILLUS Inactive IRON 325 (65 FE) MG TABS 1 every other day IRON 325 (65 FE) MG TABS 233287 FERROUS SULFATE Inactive FLAGYL 500 MG TABS 1 pill by mouth three times daily, for diarrh ea FLAGYL 500 MG TABS 147731 METRONIDAZOLE Inactive BACTRIM DS 800-160 MG TABS 1 pill by mouth twice daily, for UTI BACTRIM DS 800-160 MG TABS 204470 SULFAMETHOXAZOLE-TRIM ETHOPRIM Inactive Advance Directives Directive Description [...] Range Description blood pressure, diastolic - 8462-4 63 mm[Hg] [...] - 3141-9 149.5 [lb_av] Weigh t Measured blood pressure, diastolic [...] Panel - Chemistry sodium, serum 142 mmol/L 166-167 9408/04/20 carbon dioxide, venous blood 34.7 mmol/L 21.0-32 .0 potassium, serum 3.5 mmol/L 3.5-5.2 chloride, serum 102 mmol/L 98-107 blood glucose 102 mg/dL 65-110 urea nitrogen, blood 24 mg/dL 7-18 creatinine, serum 1.37 mg/dL 0.55-1.30 alanine aminotransferase (SGPT), serum 72 U/L -78 aspartate aminotransferase (SGOT), serum 44 U/L 15-37 calcium, serum 9.0 mg/dL 8.5-10.1 bilirubin, serum, total 0.50 mg/dL 0.00-1.00 sodium, serum 138 mmol/L 170-104 3520/10/23 carbon dioxide, venous blood 29.5 mmol/L 21.0-32 [...] 11 .6-14.8 platelet count 189 10^3/MM^3 10*3/mm3 651-944 1595/04/20 leukocyte count, blood 5.9 10^3/MM^3 10*3/mm3 4.6-10.2 [...] 1.24 m[iU]/mL 0.36-3.74 cholesterol, serum 227 mg/dL 957-932 5045/10/23 triglyceride, serum, fasting 144 mg/dL 30-200 HDL cholesterol, serum 60 mg/dL 32-96 LDL cholesterol, serum 138 mg/dL 0-130 Lab Report: Lipid Panel, MICROALBUMIN, T hyroid Stimulating Hormone (L) - Lab microalbumin, urine 10 0-19 Encounters Code Encounter Date Provider Facility CPT-22157 Level 4 Est. Patient 17:00:48 CDT Kylie Lund [facility] CPT-20026 Level 3 Est. Patient 13:15:54 CDT Kylie Lund [facility] CPT-24262 Level 3 Est. Patient 09:10:11 CDT Kylie Lund [facility] CPT-85206 Level 4 Est. Patient 12:08:30 BANJO REPAIRER Hope cohn MD PhD [facility] CPT-75665 Level 4 Est. Patient 19:08:42 BANJO REPAIRER Hope cohn MD PhD [facility] CPT-38275 Level 4 Est. Patient 20:04:51 CDT Hope cohn MD PhD [facility] CPT-95614 Level 3 New Patient 01:46:11 BANJO REPAIRER Hope landers MD PhD [facility] Procedures Code Procedure Name Date Entry Date Standard Desc ription CPT-G0438 Initial Annual Wellness Exam 14:19:57 CD T CPT-G0009 Administration of Pneumococcal Vaccine 9 11:36:25 CDT CPT-81736 Prevnar 13 Intramuscular Suspension 1 1:36:25 CDT CPT-97658 Prevnar 13 Intramuscular Suspension 1 0:40:58 CDT CPT-J0897 Prolia 60 mg 10:37:16 CDT CPT-51851 Abx/Therapy Injection 10:37:16 CDT CPT-J0897 Prolia 60 mg 16:09:34 BANJO REPAIRER CPT-J0897 Prolia 60 mg 11:10:35 BANJO REPAIRER CPT-66402 Abx/Therapy Injection 11:10:35 BANJO REPAIRER CPT-000 Give Appropriate Flu Vaccine 17:01:15 BANJO REPAIRER 2 CPT-70178 Fluzone High Dose (65+) 15:03:08 BANJO REPAIRER 02/15 CPT-83211 Immunization Single Admin 15:03:08 BANJO REPAIRER 2014 CPT-OV Office Visit 15:58:06 CDT CPT-J0897 Prolia 60 mg 08:45:38 CDT CPT-90351 Abx/Therapy Injection 08:45:38 CDT CPT-J3420 Vitamin B12 1000mcg (Cyanocobalamin) 09:26:20 BANJO REPAIRER CPT-20208 Abx/Therapy Injection 09:26:20 BANJO REPAIRER CPT-J3420 Vitamin B12 1000mcg (Cyanocobalamin) 09:44:40 BANJO REPAIRER CPT-49879 Abx/Therapy Injection 09:44:40 BANJO REPAIRER CPT-J3420 Vitamin B12 1000mcg (Cyanocobalamin) 09:15:54 BANJO REPAIRER CPT-05035 Abx/Therapy Injection 09:15:54 BANJO REPAIRER CPT-J3420 Vitamin B12 1000mcg (Cyanocobalamin) 09:46:44 BANJO REPAIRER CPT-21739 Abx/Therapy Injection 09:46:44 BANJO REPAIRER CPT-J3420 Vitamin B12 1000mcg (Cyanocobalamin) 09:47:34 BANJO REPAIRER CPT-77904 Abx/Therapy Injection 09:47:34 BANJO REPAIRER CPT-J3420 Vitamin B12 1000mcg (Cyanocobalamin) 14:35:50 BANJO REPAIRER CPT-J3420 Vitamin B12 1000mcg (Cyanocobalamin) 09:25:05 BANJO REPAIRER CPT-70781 Abx/Therapy Injection 09:25:05 BANJO REPAIRER CPT-G0008 Administration of Influenza Virus Vaccine 13:36:47 CDT CPT-71837 Fluzone High-Dose Intramuscular Suspension 11/15 13:36:47 CDT CPT-J0897 Prolia 60 mg 08:50:41 CDT CPT-05859 Abx/Therapy Injection 08:50:41 CDT CPT-84990 Bone Density 12:06:12 CDT CPT-02131 Bone Density 08:54:40 CDT CPT-OV Office Visit 15:37:02 CDT CPT-45451 Postop F/U Visit 15:47:49 CDT CPT-73744 Postop F/U Visit 15:21:02 CDT CPT-TCMH Transitional Care Mgmt-High 07:52:27 CDT 20 20/06/01 CPT-72170 Venipuncture Draw Fee 13:51:18 CDT CPT-59307 Venipuncture Draw Fee 10:14:55 BANJO REPAIRER CPT-52559 Venipuncture Draw Fee 13:39:45 BANJO REPAIRER CPT-OV Office Visit 15:11:22 BANJO REPAIRER CPT-09574 Venipuncture Draw Fee 09:20:49 BANJO REPAIRER CPT-24816 Venipuncture Draw Fee 16:52:15 BANJO REPAIRER CPT-51280 Venipuncture Draw Fee 10:37:24 BANJO REPAIRER CPT-35103 Venipuncture Draw Fee 08:21:21 BANJO REPAIRER CPT-17564 Venipuncture Draw Fee 08:30:20 BANJO REPAIRER CPT-32211 Venipuncture Draw Fee 14:53:21 BANJO REPAIRER CPT-48184 Venipuncture Draw Fee 09:40:56 BANJO REPAIRER CPT-23228 Venipuncture Draw Fee 10:30:47 BANJO REPAIRER CPT-96782 Venipuncture Draw Fee 10:46:17 BANJO REPAIRER CPT-03129 Venipuncture Draw Fee 11:12:45 BANJO REPAIRER CPT-46632 Venipuncture Draw Fee 09:53:33 BANJO REPAIRER 2013/12/ 24 CPT-70441 Venipuncture Draw Fee 11:53:51 BANJO REPAIRER CPT-74900 Venipuncture Draw Fee 10:33:50 BANJO REPAIRER CPT-05355 Venipuncture Draw Fee 10:05:01 BANJO REPAIRER CPT-72017 Venipuncture Draw Fee 14:32:52 BANJO REPAIRER CPT-06354 Venipuncture Draw Fee 09:46:13 BANJO REPAIRER CPT-40685 Venipuncture Draw Fee 11:34:27 BANJO REPAIRER CPT-19357 Venipuncture Draw Fee 13:17:16 BANJO REPAIRER CPT-55774 Venipuncture Draw Fee 12:05:39 CDT CPT-91216 Venipuncture Draw Fee 12:49:12 CDT CPT-67648 Venipuncture Draw Fee 12:37:18 CDT CPT-59461 Venipuncture Draw Fee 10:57:11 CDT CPT-11910 Venipuncture Draw Fee 13:47:40 CDT CPT-04568 Venipuncture Draw Fee 10:02:17 CDT CPT-94198 TB Tubersol 17:32:32 CDT CPT-OV Office Visit 16:21:53 CDT CPT-OV Office Visit 15:49:22 CDT CPT-OV Office Visit 17:16:31 CDT CPT-OV Office Visit 10:43:31 CDT
--- OUTSIDE RECORDS SUMMARY | 2019-02-09 12:18 | XMS REPORT | Clinical Summary ---
Author Author Renaldo, Florecita Munoz Organization [facility] [employer] Address Unknown Phone Unavailable Allergies, Adverse Reactions, [...] PhD Hyperpotassemia GERD 530.81 Resolved Kylie Yokum [employer] Esophageal reflux Health maintenance exam V70.0 Resolved Adolfo Yates MD Routine general medical examination at a health care facility Anemia 285.9 Resolved Kylie Holt [employer] Anemia, unspecified Personal history of malignant neoplasm [...] Sebaceous cyst, scalp 706.2 Resolved Kylie Holt [employer] Sebaceous cyst Cervical lymphadenopathy, anterior, left 785.6 Resolv ed Kylie Holt [employer] Enlargement of lymph nodes Need for prophylactic vaccination and inoculation against in fluenza V04.81 Active Citlaly Watkins RMA Need for prophylactic vaccination and inoculation against influenza Preventive health care V70.0 Active Kylie Holt [employer] Routine general medical examination at a health care facility Thyroid nodule, left 241.0 Active Kylie Holt A PRN Nontoxic uninodular goiter Screening mammogram V76.12 Active Kylie Holt AP RN Other screening mammogram ABDOMINAL PAIN, RIGHT LOWER QUADRANT ICD-789.03 Inactive Kina Joshua [employer] ADENOCARCINOMA, COLON, 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 Dick Yates MD ABDOMINAL PAIN, GENERALIZED ICD-789.07 Inactive Hope Benavidez MD PhD FEVER UNSPECIFIED ICD-780.60 Inactive Hope cohn MD PhD UNSPECIFIED VENOUS INSUFFICIENCY ICD-459.81 [place] ctive Adam Yates MD ADENOCARCINOMA, 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 Inac tive Hope Benavidez MD PhD Hyperkalemia ICD-276.7 Inactive Hope Benavidez MD PhD GERD ICD-530.81 Inactive Kylie Holt [employer] 2015 Health maintenance exam ICD-V70.0 Bam Yates MD Anemia ICD-285.9 Inactive Kylie Holt [employer] 07/24 Weakness ICD-780.79 Inactive Hope Benavidez MD P hD Aftercare following surgery of the teeth,oral cavity a nd digestive system, NEC ICD-V58.75 Inactive Adam Yates MD Colon cancer ICD-153.9 Inactive Adam luna MD Asymptomatic postmenopausal status (age-related) (natural) I CD-V49.81 Inactive Hope Benavidez MD PhD Dysuria ICD-788.1 Inactive Hope Benavidez MD PhD 201 05/19/01 Sebaceous cyst, scalp ICD-706.2 Inactive Tracy Holt [employer] Cervical lymphadenopathy, anterior, left ICD-785.6 Inactive Kylie Holt [employer] Medication List Medication Instructions Start Date Stop Date Generic Name NDC Status Provider Patient Instruction VITAMIN D3 2000 UNIT ORAL CAPS Melaleuca-One daily CHOLECALCIFEROL 10411112803 Active Kylie Lundum [employer] Active PROBIOTIC DAILY ORAL CAPS Take one daily PROBIOTIC PRODUCT 10921242151 Active Kylie Lundum [employer] Active IRON 325 (65 FE) MG TABS 1 every other day FERR OUS SULFATE 41212794359 No Longer Active Kylie Lundum [employer] Active FLORANEX PACK 1 pack three times daily, for bowel health LACTOBACILLUS 05632880507 No Longer Active Kylie Lundum [employer] Active LOMOTIL 2.5-0.025 MG TABS 1 tab by mouth prn 4 DIPHENOXYLATE-ATROPINE 37620069512 No Longer Active Kylie Yokum [employer] Active MAGNESIUM GLUCONATE 250 MG TABS 1 tab tid 4 MAGNESIUM GLUCONATE 13326020902 No Longer Active Kylie Yokum [employer] Active CYANOCOBALAMIN 1000 MCG/ML INJ SOLN 1 injection every 2 weeks 20 20/01/03 CYANOCOBALAMIN 04574475375 No Longer Active Kylie Yokum [employer] Active ATENOLOL 25 MG ORAL TABS 1/2 pill by mouth daily, for headac hes, blood pressure ATENOLOL 27184918698 Active Kylie Yokum [employer] Active PROPRANOLOL HCL 80 MG TABS 1 tab tue. and thur. 04/10 PROPRANOLOL HCL 26358658347 No Longer Active Hope Benavidez MD PhD A ctive VITAMIN D3 4000 IU 1 tab 3 times daily VITAMIN D3 4000 IU No Longer Active Hope Benavidez MD PhD Active BACTRIM DS 800-160 MG TABS 1 pill by mouth twice daily, for UTI SULFAMETHOXAZOLE-TRIMETHOPRIM 50003950774 No Longer Active A attila Benavidez MD PhD Active PROLIA 60 MG/ML SOLN 1 shot every 6 months for osteoprosis DENOSUMAB 37608097901 Active Hope Benavidez MD PhD Active CALCIUM + D + K 750-500-40 MG-UNT-MCG TABS 1 tab by mouth tw ice daily CALCIUM-VITAMIN D-VITAMIN K 19716146914 Active Hope landers MD PhD Active DAILY VALUE MULTIVITAMIN TABS 1 tab by mouth twice daily MULTIPLE VITAMIN 55445791656 Active Hope Benavidez MD PhD Active FISH OIL 306 MG CAPS 1 tab by mouth three times daily OMEGA-3 FATTY ACIDS 03345198715 Active Hope Benavidez MD PhD Active LUTEIN 10 MG TABS 1 tab daily LUTEIN 95819249833 Act cash Hope Benavidez MD PhD Active TRIAMTERENE-HCTZ 37.5-25 MG TABS 1 tab by mouth daily TRIAMTERENE-HCTZ 65300447688 Active Kylie Holt [employer] Active CYCLOBENZAPRINE HCL 10 MG TABS 1 tablet by mouth three times daily as needed for headaches CYCLOBENZAPRINE HCL 61925723765 No Longe r Active Adam Yates MD Active OMEPRAZOLE 20 MG CPDR 1 tablet by mouth daily for GERD OMEPRAZOLE 50144366157 No Longer Active Adam Yates MD A ctive ZOFRAN 8 MG TABS 1 tab by mouth every 12 hours prn 201 05/16/09 ONDANSETRON HCL 35010089588 No Longer Active Adam Yates MD Active PHENADOZ 25 MG SUPP 1 every 4 hrs. PRN PROMETHA ZINE HCL 80800095939 No Longer Active Adam Yates MD Active POTASSIUM CHLORIDE 20 MEQ PACK by mouth twice a day prn POTASSIUM CHLORIDE 21834648497 No Longer Active Adam Yates MD Active PROMETHAZINE HCL 25 MG TABS 1 Q. 4 hr. PRN PROM ETHAZINE HCL 71608723840 No Longer Active Adam Yates MD Active INNOPRAN XL 120 MG [id number] Take one by mouth daily 2 PROPRANOLOL HCL SR BEADS 69186229192 No Longer Active Adam Yates MD A ctive FLAGYL 500 MG TABS 1 pill by mouth three times daily, for diarrh ea METRONIDAZOLE 15964647424 No Longer Active Hope Benavidez MD PhD Active DYAZIDE 37.5-25 MG CAPS 1 qd TRIAMTERENE-HC TZ 01208556530 No Longer Active Hope Benavidez MD PhD Active PROZAC 20 MG CAPS 1 q d FLUOXETINE HCL 07634 296445 No Longer Active Hope Benavidez MD PhD Active SIMVASTATIN 40 MG TABS 1 qd SIMVASTATIN 004 51599641 No Longer Active Adam Yates MD Active MELOXICAM 15 MG TABS 1 qd MELOXICAM 0485509 2552 No Longer Active Adam Yates MD Active IMODIUM A-D 2 MG TABS 2 onset at diarrhea and prn. LOPERAMIDE HCL 49223340345 Active Hope Benavidez MD PhD Active EXCEDRIN EXTRA STRENGTH 250-250-65 MG TABS 1-2 q6h PRN headache 201 04/16/21 [id number] 68491406363 Active Hope Benavidez MD PhD Active FLAGYL 500 MG TABS 1 qid METRONIDAZOLE 47066 325475 No Longer Active Adam Yates MD Active LEVAQUIN 750 MG TABS 1 qd LEVOFLOXACIN 5486 3146913 No Longer Active Adam Yates MD Active ADULT ASPIRIN LOW STRENGTH 81 MG TBDP 1 qd A SPIRIN 20267334693 Active Hope Benavidez MD PhD Active LEVAQUIN 750 MG TABS 1 qd LEVAQUIN 750 MG T ABS 271523 LEVOFLOXACIN Inactive FLAGYL 500 MG TABS 1 qid FLAGYL 500 MG TABS 959694 METRONIDAZOLE Inactive MELOXICAM 15 MG TABS 1 qd MELOXICAM 15 MG T ABS 430620 MELOXICAM Inactive SIMVASTATIN 40 MG TABS 1 qd SIMVASTATIN 40 MG TABS 190133 SIMVASTATIN Inactive PROZAC 20 MG CAPS 1 q d PROZAC 20 MG CAPS 31 0385 FLUOXETINE HCL Inactive DYAZIDE 37.5-25 MG CAPS 1 qd DYAZIDE 37.5 -25 MG CAPS 413573 TRIAMTERENE-HCTZ Inactive INNOPRAN XL 120 MG [id number] Take one by mouth daily 2 INNOPRAN XL 120 MG [id number] PROPRANOLOL HCL SR BEADS Inactive PROMETHAZINE HCL 25 MG TABS 1 Q. 4 hr. PRN PROMETHAZINE HCL 25 MG TABS 627507 PROMETHAZINE HCL Inactive POTASSIUM CHLORIDE 20 MEQ PACK by mouth twice a day prn POTASSIUM CHLORIDE 20 MEQ PACK 950481 POTASSIUM CHLORIDE Inactive PHENADOZ 25 MG SUPP 1 every 4 hrs. PRN PHENADOZ 2 5 MG SUPP 797389 PROMETHAZINE HCL Inactive ZOFRAN 8 MG TABS 1 tab by mouth every 12 hours prn 201 05/16/09 ZOFRAN 8 MG TABS 689377 ONDANSETRON HCL Inactive OMEPRAZOLE 20 MG CPDR 1 tablet by mouth daily for GERD OMEPRAZOLE 20 MG CPDR 403970 OMEPRAZOLE Inactive CYCLOBENZAPRINE HCL 10 MG TABS 1 tablet by mouth three times daily as needed for headaches CYCLOBENZAPRINE HCL 10 MG TABS 779056 CYCLOBENZAPRINE HCL Inactive VITAMIN D3 4000 IU 1 tab 3 times daily VITAMIN D3 4000 IU Inactive PROPRANOLOL HCL 80 MG TABS 1 tab tue. and thur. 04/10 PROPRANOLOL HCL 80 MG TABS 166124 PROPRANOLOL HCL Inactive CYANOCOBALAMIN 1000 MCG/ML INJ SOLN 1 injection every 2 weeks 20 20/01/03 CYANOCOBALAMIN 1000 MCG/ML INJ SOLN 668493 CYANOCOBALAM IN Inactive MAGNESIUM GLUCONATE 250 MG TABS 1 tab tid 4 MAGNESIUM GLUCONATE 250 MG TABS 323050 MAGNESIUM GLUCONATE Inactive LOMOTIL 2.5-0.025 MG TABS 1 tab by mouth prn 4 LOMOTIL 2.5- 0.025 MG TABS 0393120 DIPHENOXYLATE-ATROPINE Inactive FLORANEX PACK 1 pack three times daily, for bowel health FLORANEX PACK LACTOBACILLUS Inactive IRON 325 (65 FE) MG TABS 1 every other day IRON 325 (65 FE) MG TABS 647542 FERROUS SULFATE Inactive FLAGYL 500 MG TABS 1 pill by mouth three times daily, for diarrh ea FLAGYL 500 MG TABS 366395 METRONIDAZOLE Inactive BACTRIM DS 800-160 MG TABS 1 pill by mouth twice daily, for UTI BACTRIM DS 800-160 MG TABS 550847 SULFAMETHOXAZOLE-TRIM ETHOPRIM Inactive Advance Directives Directive Description [...] Panel - Chemistry sodium, serum 142 mmol/L 927-613 8751/04/20 carbon dioxide, venous blood 34.7 mmol/L 21.0-32 [...] ... - Chemistry sodium, serum 139 mmol/L 925-058 9182/10/20 carbon dioxide, venous blood 32.2 mmol/L 21.0-32 [...] antigen 0.9 ng/mL carcinoembryonic antigen 0.9 ng/mL Encounters Code Encounter Date Provider Facility CPT-53222 Level 4 Est. Patient 17:00:48 CDT Kylie boyd [facility] [place] CPT-85926 Level 3 Est. Patient 13:15:54 CDT Kylie Lund [facility] CPT-82500 Level 3 Est. Patient 09:10:11 CDT Kylie Lund [facility] CPT-74872 Level 4 Est. Patient 12:08:30 CYCLE LIAISON Hope cohn MD [facility] CPT-96489 Level 4 Est. Patient 19:08:42 CYCLE LIAISON Hope cohn MD [facility] CPT-96258 Level 4 Est. Patient 20:04:51 CDT Hope cohn MD [facility] CPT-38051 Level 3 New Patient 01:46:11 CYCLE LIAISON Hope landers MD PhD [facility] Procedures Code Procedure Name Date Entry Date Standard Desc ription CPT-87371 TSH - LAB USE ONLY 14:26:02 CDT CPT-05012 CMP - LAB USE ONLY 14:26:01 CDT CPT-10489 CBC with Diff - LAB USE ONLY 14:26:01 CDT 2 CPT-86709 Venipuncture Draw Fee 14:26:01 CDT CPT-35947 First Vx - Ix admin for Medicare patients 13:27:08 CDT CPT-20572 Fluzone High-Dose Intramuscular Suspension 11/26 13:27:08 CDT CPT-G0438 Initial Annual Wellness Exam 14:19:57 CD T CPT-G0009 Administration of Pneumococcal Vaccine 9 11:36:25 CDT CPT-38417 Prevnar 13 Intramuscular Suspension 1 1:36:25 CDT CPT-79182 Prevnar 13 Intramuscular Suspension 1 0:40:58 CDT CPT-J0897 Prolia 60 mg 10:37:16 CDT CPT-57722 Abx/Therapy Injection 10:37:16 CDT CPT-J0897 Prolia 60 mg 16:09:34 CYCLE LIAISON CPT-J0897 Prolia 60 mg 11:10:35 CYCLE LIAISON CPT-53189 Abx/Therapy Injection 11:10:35 CYCLE LIAISON CPT-000 Give Appropriate Flu Vaccine 17:01:15 CYCLE LIAISON 2 CPT-42469 Fluzone High Dose (65+) 15:03:08 CYCLE LIAISON 02/15 CPT-10192 Immunization Single Admin 15:03:08 CYCLE LIAISON 2014 CPT-OV Office Visit 15:58:06 CDT CPT-J0897 Prolia 60 mg 08:45:38 CDT CPT-24987 Abx/Therapy Injection 08:45:38 CDT CPT-J3420 Vitamin B12 1000mcg (Cyanocobalamin) 09:26:20 CYCLE LIAISON CPT-70557 Abx/Therapy Injection 09:26:20 CYCLE LIAISON CPT-J3420 Vitamin B12 1000mcg (Cyanocobalamin) 09:44:40 CYCLE LIAISON CPT-51583 Abx/Therapy Injection 09:44:40 CYCLE LIAISON CPT-J3420 Vitamin B12 1000mcg (Cyanocobalamin) 09:15:54 CYCLE LIAISON CPT-23418 Abx/Therapy Injection 09:15:54 CYCLE LIAISON CPT-J3420 Vitamin B12 1000mcg (Cyanocobalamin) 09:46:44 CYCLE LIAISON CPT-87601 Abx/Therapy Injection 09:46:44 CYCLE LIAISON CPT-J3420 Vitamin B12 1000mcg (Cyanocobalamin) 09:47:34 CYCLE LIAISON CPT-76724 Abx/Therapy Injection 09:47:34 CYCLE LIAISON CPT-J3420 Vitamin B12 1000mcg (Cyanocobalamin) 14:35:50 CYCLE LIAISON CPT-J3420 Vitamin B12 1000mcg (Cyanocobalamin) 09:25:05 CYCLE LIAISON CPT-78322 Abx/Therapy Injection 09:25:05 CYCLE LIAISON CPT-G0008 Administration of Influenza Virus Vaccine 13:36:47 CDT CPT-86509 Fluzone High-Dose Intramuscular Suspension 11/15 13:36:47 CDT CPT-J0897 Prolia 60 mg 08:50:41 CDT CPT-86820 Abx/Therapy Injection 08:50:41 CDT CPT-67617 Bone Density 12:06:12 CDT CPT-14366 Bone Density 08:54:40 CDT CPT-OV Office Visit 15:37:02 CDT CPT-04492 Postop F/U Visit 15:47:49 CDT CPT-00729 Postop F/U Visit 15:21:02 CDT CPT-TCMH Transitional Care Mgmt-High 07:52:27 CDT 20 20/06/01 CPT-64158 Venipuncture Draw Fee 13:51:18 CDT CPT-43269 Venipuncture Draw Fee 10:14:55 CYCLE LIAISON CPT-48766 Venipuncture Draw Fee 13:39:45 CYCLE LIAISON CPT-OV Office Visit 15:11:22 CYCLE LIAISON CPT-56793 Venipuncture Draw Fee 09:20:49 CYCLE LIAISON CPT-85164 Venipuncture Draw Fee 16:52:15 CYCLE LIAISON CPT-03166 Venipuncture Draw Fee 10:37:24 CYCLE LIAISON CPT-34371 Venipuncture Draw Fee 08:21:21 CYCLE LIAISON CPT-83004 Venipuncture Draw Fee 08:30:20 CYCLE LIAISON CPT-25143 Venipuncture Draw Fee 14:53:21 CYCLE LIAISON CPT-39810 Venipuncture Draw Fee 09:40:56 CYCLE LIAISON CPT-17753 Venipuncture Draw Fee 10:30:47 CYCLE LIAISON CPT-91804 Venipuncture Draw Fee 10:46:17 CYCLE LIAISON CPT-38445 Venipuncture Draw Fee 11:12:45 CYCLE LIAISON CPT-26092 Venipuncture Draw Fee 09:53:33 CYCLE LIAISON CPT-88361 Venipuncture Draw Fee 11:53:51 CYCLE LIAISON CPT-78793 Venipuncture Draw Fee 10:33:50 CYCLE LIAISON CPT-92741 Venipuncture Draw Fee 10:05:01 CYCLE LIAISON CPT-53948 Venipuncture Draw Fee 14:32:52 CYCLE LIAISON CPT-86235 Venipuncture Draw Fee 09:46:13 CYCLE LIAISON 2013/11/ 19 CPT-35501 Venipuncture Draw Fee 11:34:27 CYCLE LIAISON CPT-60301 Venipuncture Draw Fee 13:17:16 CYCLE LIAISON CPT-08416 Venipuncture Draw Fee 12:05:39 CDT CPT-40472 Venipuncture Draw Fee 12:49:12 CDT CPT-21188 Venipuncture Draw Fee 12:37:18 CDT CPT-91873 Venipuncture Draw Fee 10:57:11 CDT CPT-56460 Venipuncture Draw Fee 13:47:40 CDT CPT-50156 Venipuncture Draw Fee 10:02:17 CDT CPT-80869 TB Tubersol 17:32:32 CDT CPT-OV Office Visit 16:21:53 CDT CPT-OV Office Visit 15:49:22 CDT CPT-OV Office Visit 17:16:31 CDT CPT-OV Office Visit 10:43:31 CDT
--- OUTSIDE RECORDS SUMMARY | 2019-02-09 12:18 | XMS REPORT | Clinical Summary ---
Author Author Renaldo, Florecita Munoz Organization [facility] [place] Address Unknown Phone Unavailable Allergies, Adverse Reactions, [...] PhD Hyperpotassemia GERD 530.81 Resolved Kylie Yokum CLIENT RELATIONSHIP CONSULTANT Esophageal reflux Health maintenance exam V70.0 Resolved Adolfo Yates MD Routine general medical examination at a health care facility Anemia 285.9 Resolved Kylie Holt CLIENT RELATIONSHIP CONSULTANT Anemia, unspecified Personal history of malignant neoplasm of large intestine V10.05 Active Adam Yates MD Personal history of malignant neoplasm of large intestine Hypomagnesemia 275.2 Resolved Kylie Holt CLIENT RELATIONSHIP CONSULTANT Disorders of magnesium metabolism Weakness 780.79 Resolved [...] Sebaceous cyst, scalp 706.2 Resolved Kylie Yokum CLIENT RELATIONSHIP CONSULTANT Sebaceous cyst Cervical lymphadenopathy, anterior, left 785.6 Resolv ed Kylie Yokum CLIENT RELATIONSHIP CONSULTANT Enlargement of lymph nodes Need for prophylactic vaccination and inoculation against in fluenza V04.81 Resolved Adam Yates MD Need for prophylactic vaccination and inoculation against influenza Preventive health care V70.0 Active Kylie Yokum CLIENT RELATIONSHIP CONSULTANT Routine general medical examination at a health care facility Thyroid nodule, left 241.0 Active Kylie Yokum A PRN Nontoxic uninodular goiter Screening mammogram V76.12 Active Kylie Yokum AP RN Other screening mammogram Mandy 706.2 Resolved Kylie Yokum CLIENT RELATIONSHIP CONSULTANT Sebaceous cyst Colon cancer, ascending 153.6 Resolved Kylie Yok um CLIENT RELATIONSHIP CONSULTANT Malignant neoplasm of ascending colon Foot pain, left 729.5 Active 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 Pain in limb Splinter 919.6 Active Kylie Yokum CLIENT RELATIONSHIP CONSULTANT Superficial foreign body (splinter) of other, multiple, and unspecified sites, without major open wound and without mention of infection ABDOMINAL PAIN, RIGHT LOWER QUADRANT ICD-789.03 Inactive Kina Joshua CLIENT RELATIONSHIP CONSULTANT ADENOCARCINOMA, COLON, 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 Dick Yates MD ABDOMINAL PAIN, GENERALIZED ICD-789.07 Inactive Hope Benavidez MD PhD FEVER UNSPECIFIED ICD-780.60 Inactive Hope cohn MD PhD UNSPECIFIED VENOUS INSUFFICIENCY ICD-459.81 Elda ctive Adam Yates MD ADENOCARCINOMA, 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 Inac tive Hope Benavidez MD PhD Hyperkalemia ICD-276.7 Inactive Hope Benavidez MD PhD GERD ICD-530.81 Inactive Kylie Holt CLIENT RELATIONSHIP CONSULTANT 2015 Health maintenance exam ICD-V70.0 Inactive Adolfo Yates MD Anemia ICD-285.9 Inactive Kylie Holt CLIENT RELATIONSHIP CONSULTANT 07/24 Hypomagnesemia ICD-275.2 Inactive Kylie Holt CLIENT RELATIONSHIP CONSULTANT Weakness ICD-780.79 Inactive Hope Benavidez MD P [...] Sebaceous cyst, scalp ICD-706.2 Inactive Tracy Holt CLIENT RELATIONSHIP CONSULTANT Cervical lymphadenopathy, anterior, left ICD-785.6 Inactive Kylie Holt CLIENT RELATIONSHIP CONSULTANT Need for prophylactic vaccination and inoculation against in fluenza ICD-V04.81 Inactive Adam Yates MD Mandy ICD-706.2 Inactive Kylie Holt CLIENT RELATIONSHIP CONSULTANT 07/20 Colon cancer, ascending ICD-153.6 Inactive Bravo Holt CLIENT RELATIONSHIP CONSULTANT Medication List Medication Instructions Start Date Stop Date Generic Name NDC Status Provider Patient Instruction COQ10 100 MG ORAL CAPS 1 daily COENZYME Q10 624054118 20 Active LETY Nation Active VITAMIN D3 2000 UNIT ORAL CAPS Melaleuca-One daily CHOLECALCIFEROL 81482064399 Active Kylie Holt APRN Active PROBIOTIC DAILY ORAL CAPS Take one daily PROBIOTIC PRODUCT 18431318599 Active Kylie Holt APRN Active IRON 325 (65 FE) MG TABS 1 every other day FERR OUS SULFATE 36902393866 No Longer Active Kylie Holt APRN Active FLORANEX PACK 1 pack three times daily, for bowel health LACTOBACILLUS 86467946111 No Longer Active Kylie Holt APRN Active LOMOTIL 2.5-0.025 MG TABS 1 tab by mouth prn 4 DIPHENOXYLATE-ATROPINE 04813296815 No Longer Active Kylie Holt APRN Active MAGNESIUM GLUCONATE 250 MG TABS 1 tab tid 4 MAGNESIUM GLUCONATE 98978896209 No Longer Active Kylie Lundum CLIENT RELATIONSHIP CONSULTANT Active CYANOCOBALAMIN 1000 MCG/ML INJ SOLN 1 injection every 2 weeks 20 20/01/03 CYANOCOBALAMIN 13327096827 No Longer Active Kylie Holt APRN Active ATENOLOL 25 MG ORAL TABS 1/2 pill by mouth daily, for headac hes, blood pressure ATENOLOL 63614826916 Active Kylieshubham Holt CLIENT RELATIONSHIP CONSULTANT Active PROPRANOLOL HCL 80 MG TABS 1 tab tue. and thur. 04/10 PROPRANOLOL HCL 03624806531 No Longer Active Hope Benavidez MD PhD A ctive VITAMIN D3 4000 IU 1 tab 3 times daily VITAMIN D3 4000 IU No Longer Active Hope Benavidez MD PhD Active BACTRIM DS 800-160 MG TABS 1 pill by mouth twice daily, for UTI SULFAMETHOXAZOLE-TRIMETHOPRIM 01265619818 No Longer Active A attila Benavidez MD PhD Active PROLIA 60 MG/ML SOLN 1 shot every 6 months for osteoprosis DENOSUMAB 64570364599 Active Hope Benavidez MD PhD Active CALCIUM + D + K 750-500-40 MG-UNT-MCG TABS 1 tab by mouth tw ice daily CALCIUM-VITAMIN D-VITAMIN K 60280059496 Active Hope landers MD PhD Active DAILY VALUE MULTIVITAMIN TABS 1 tab by mouth twice daily MULTIPLE VITAMIN 61012096865 Active Hope Benavidez MD PhD Active FISH OIL 306 MG CAPS 1 tab by mouth three times daily OMEGA-3 FATTY ACIDS 80858095190 Active Hope Benavidez MD PhD Active LUTEIN 10 MG TABS 1 tab daily LUTEIN 77787030888 Act cash Hope Benavidez MD PhD Active TRIAMTERENE-HCTZ 37.5-25 MG TABS 1 tab by mouth daily TRIAMTERENE-HCTZ 95059955105 Active Kylie Holt APRN Active CYCLOBENZAPRINE HCL 10 MG TABS 1 tablet by mouth three times daily as needed for headaches CYCLOBENZAPRINE HCL 23492068905 No Longe r Active Adam Yates MD Active OMEPRAZOLE 20 MG CPDR 1 tablet by mouth daily for GERD OMEPRAZOLE 84680486794 No Longer Active Adam Yates MD A ctive ZOFRAN 8 MG TABS 1 tab by mouth every 12 hours prn 201 05/16/09 ONDANSETRON HCL 68573699590 No Longer Active Adam Yates MD Active PHENADOZ 25 MG SUPP 1 every 4 hrs. PRN PROMETHA ZINE HCL 38617395231 No Longer Active Adam Yates MD Active POTASSIUM CHLORIDE 20 MEQ PACK by mouth twice a day prn POTASSIUM CHLORIDE 72603860456 No Longer Active Adam Yates MD Active PROMETHAZINE HCL 25 MG TABS 1 Q. 4 hr. PRN PROM ETHAZINE HCL 28309205016 No Longer Active Adam Yates MD Active INNOPRAN XL 120 MG [id number] Take one by mouth daily 2 PROPRANOLOL HCL SR BEADS 39803213909 No Longer Active Adam Yates MD A ctive FLAGYL 500 MG TABS 1 pill by mouth three times daily, for diarrh ea METRONIDAZOLE 75657292325 No Longer Active Hope Benavidez MD PhD Active DYAZIDE 37.5-25 MG CAPS 1 qd TRIAMTERENE-HC TZ 64304043172 No Longer Active Hope Benavidez MD PhD Active PROZAC 20 MG CAPS 1 q d FLUOXETINE HCL 28341 686987 No Longer Active Hope Benavidez MD PhD Active SIMVASTATIN 40 MG TABS 1 qd SIMVASTATIN 004 89728248 No Longer Active Adam Yates MD Active MELOXICAM 15 MG TABS 1 qd MELOXICAM 1574713 4030 No Longer Active Adam Yates MD Active IMODIUM A-D 2 MG TABS 2 onset at diarrhea and prn. LOPERAMIDE HCL 68539241053 Active Hope Benavidez MD PhD Active EXCEDRIN EXTRA STRENGTH 250-250-65 MG TABS 1-2 q6h PRN headache 201 04/16/21 [id number] 82662611448 Active Hope Benavidez MD PhD Active FLAGYL 500 MG TABS 1 qid METRONIDAZOLE 90470 546503 No Longer Active Adam Yates MD Active LEVAQUIN 750 MG TABS 1 qd LEVOFLOXACIN 5486 2504417 No Longer Active Adam Yates MD Active ADULT ASPIRIN LOW STRENGTH 81 MG TBDP 1 qd A SPIRIN 94421080739 Active Hope Benavidez MD PhD Active LEVAQUIN 750 MG TABS 1 qd LEVAQUIN 750 MG T ABS 825405 LEVOFLOXACIN Inactive FLAGYL 500 MG TABS 1 qid FLAGYL 500 MG TABS 342437 METRONIDAZOLE Inactive MELOXICAM 15 MG TABS 1 qd MELOXICAM 15 MG T ABS 993186 MELOXICAM Inactive SIMVASTATIN 40 MG TABS 1 qd SIMVASTATIN 40 MG TABS 177385 SIMVASTATIN Inactive PROZAC 20 MG CAPS 1 q d PROZAC 20 MG CAPS 31 0385 FLUOXETINE HCL Inactive DYAZIDE 37.5-25 MG CAPS 1 qd DYAZIDE 37.5 -25 MG CAPS 531425 TRIAMTERENE-HCTZ Inactive INNOPRAN XL 120 MG [id number] Take one by mouth daily 2 INNOPRAN XL 120 MG [id number] PROPRANOLOL HCL SR BEADS Inactive PROMETHAZINE HCL 25 MG TABS 1 Q. 4 hr. PRN PROMETHAZINE HCL 25 MG TABS 490058 PROMETHAZINE HCL Inactive POTASSIUM CHLORIDE 20 MEQ PACK by mouth twice a day prn POTASSIUM CHLORIDE 20 MEQ PACK 4557243 POTASSIUM CHLORIDE Inactive PHENADOZ 25 MG SUPP 1 every 4 hrs. PRN PHENADOZ 2 5 MG SUPP 379836 PROMETHAZINE HCL Inactive ZOFRAN 8 MG TABS 1 tab by mouth every 12 hours prn 201 05/16/09 ZOFRAN 8 MG TABS 196176 ONDANSETRON HCL Inactive OMEPRAZOLE 20 MG CPDR 1 tablet by mouth daily for GERD OMEPRAZOLE 20 MG CPDR 759604 OMEPRAZOLE Inactive CYCLOBENZAPRINE HCL 10 MG TABS 1 tablet by mouth three times daily as needed for headaches CYCLOBENZAPRINE HCL 10 MG TABS 716023 CYCLOBENZAPRINE HCL Inactive VITAMIN D3 4000 IU 1 tab 3 times daily VITAMIN D3 4000 IU Inactive PROPRANOLOL HCL 80 MG TABS 1 tab tue. and thur. 04/10 PROPRANOLOL HCL 80 MG TABS 937398 PROPRANOLOL HCL Inactive CYANOCOBALAMIN 1000 MCG/ML INJ SOLN 1 injection every 2 weeks 20 20/01/03 CYANOCOBALAMIN 1000 MCG/ML INJ SOLN 743418 CYANOCOBALAM IN Inactive MAGNESIUM GLUCONATE 250 MG TABS 1 tab tid 4 MAGNESIUM GLUCONATE 250 MG TABS 597100 MAGNESIUM GLUCONATE Inactive LOMOTIL 2.5-0.025 MG TABS 1 tab by mouth prn 4 LOMOTIL 2.5- 0.025 MG TABS 1935872 DIPHENOXYLATE-ATROPINE Inactive FLORANEX PACK 1 pack three times daily, for bowel health FLORANEX PACK LACTOBACILLUS Inactive IRON 325 (65 FE) MG TABS 1 every other day IRON 325 (65 FE) MG TABS 400037 FERROUS SULFATE Inactive FLAGYL 500 MG TABS 1 pill by mouth three times daily, for diarrh ea FLAGYL 500 MG TABS 806759 METRONIDAZOLE Inactive BACTRIM DS 800-160 MG TABS 1 pill by mouth twice daily, for UTI BACTRIM DS 800-160 MG TABS 927708 SULFAMETHOXAZOLE-TRIM ETHOPRIM Inactive Advance Directives Directive Description [...] Range Description blood pressure, diastolic - 8462-4 70 mm[Hg] BP dobson blood pressure, systolic - 8480-6 141 mm[Hg] BP sys height E&M - 8302-2 63 [in_us] Bdy h eight pulse rate E&M - 8867-4 57 /min H eart rate temperature E&M 97.9 [degF] Body temp erature weight E&M - 3141-9 134.5 [lb_av] Weigh t Measured blood pressure, diastolic [...] - 3141-9 147 [lb_av] Weigh t Measured Diagnostic Results Date [...] 11 .0-15.0 platelet count 157 THOUSAND/UL 10*3/mm3 802-293 9328/04/20 mean platelet volume 8.9 fL 7.5-12.5 Lab Report: CBC W/DIFF, Comp. Metabolic Panel, Thyroid Stimulating Hormo ... - Chemistry sodium, serum 139 mmol/L 004-102 1122/10/20 carbon dioxide, venous blood 32.2 mmol/L 21.0-32 [...] - Chemi stry cholesterol, serum 200 mg/dL 153-129 7846/11/22 triglyceride, serum, fasting 129 mg/dL 30-200 HDL cholesterol, serum 56 mg/dL 32-96 LDL cholesterol, serum 118 mg/dL 0-130 calcium, serum 9.0 mg/dL 8.5-10.1 Lab Report: MicroAlb Random w/creat/6517 - Urinalysis microalbumin/total urine volume 8 mg/L Units converted. See lab report for original value. microalbumin/creatinine ratio, urine 15 MCG/MG CREAT mg/L <30 Encounters Code Encounter Date Provider Facility CPT-27789 Level 3 Est. Patient 17:54:48 CDT Kylie boyd Formerly named [facility] CPT-52410 Level 3 Est. Patient 16:26:30 CDT Kina blackmon [facility] CPT-03473 Level 3 New Patient 16:22:01 WATER PLANT MAINTENANCE MECHANIC Adam Yates MD [facility] CPT-08249 Level 4 Est. Patient 17:00:48 CDT Kylie Lund [facility] CPT-77735 Level 3 Est. Patient 13:15:54 CDT Kylie Lund [facility] CPT-43314 Level 3 Est. Patient 09:10:11 CDT Kylie Kevon [facility] CPT-94066 Level 4 Est. Patient 12:08:30 WATER PLANT MAINTENANCE MECHANIC Hope cohn MD [facility] CPT-05587 Level 4 Est. Patient 19:08:42 WATER PLANT MAINTENANCE MECHANIC Hope cohn MD [facility] CPT-44445 Level 4 Est. Patient 20:04:51 CDT Hope cohn MD [facility] CPT-08005 Level 3 New Patient 01:46:11 WATER PLANT MAINTENANCE MECHANIC Hope landers MD PhD [facility] Procedures Code Procedure Name Date Entry Date Standard Desc ription CPT-G0439 [facility] Annual Wellness Exam 17:54:53 CDT CPT-21831 Foot, left, comp min 3V - XRAY USE ONLY 12:22:49 CDT CPT-G0009 Administration of Pneumococcal Vaccine 3 12:18:00 CDT CPT-23481 Pneumovax 23 Injection Injectable 25 MCG /0.5ML 12:18:00 CDT CPT-J0897 Prolia 60 mg 14:14:16 [employer] PLANT MAINTENANCE MECHANIC CPT-49593 Abx/Therapy Injection 14:14:15 WATER PLANT MAINTENANCE MECHANIC CPT-83547 Lipid - LAB USE ONLY 10:01:52 WATER PLANT MAINTENANCE MECHANIC 2 CPT-84925 Calcium - LAB USE ONLY 10:01:51 WATER PLANT MAINTENANCE MECHANIC CPT-84271 Venipuncture Draw Fee 10:01:51 WATER PLANT MAINTENANCE MECHANIC CPT-LR Lesion Removal 16:22:01 WATER PLANT MAINTENANCE MECHANIC CPT-20925 TSH - LAB USE ONLY 14:26:02 CDT CPT-97392 CMP - LAB USE ONLY 14:26:01 CDT CPT-23388 CBC with Diff - LAB USE ONLY 14:26:01 CDT 2 CPT-37381 Venipuncture Draw Fee 14:26:01 CDT CPT-79228 First Vx - Ix admin for Medicare patients 13:27:08 CDT CPT-54224 Fluzone High-Dose Intramuscular Suspension 11/26 13:27:08 CDT CPT-G0438 Initial Annual Wellness Exam 14:19:57 CD T CPT-G0009 Administration of Pneumococcal Vaccine 9 11:36:25 CDT CPT-73272 Prevnar 13 Intramuscular Suspension 1 1:36:25 CDT CPT-27200 Prevnar 13 Intramuscular Suspension 1 0:40:58 CDT CPT-J0897 Prolia 60 mg 10:37:16 CDT CPT-40600 Abx/Therapy Injection 10:37:16 CDT CPT-J0897 Prolia 60 mg 16:09:34 WATER PLANT MAINTENANCE MECHANIC CPT-J0897 Prolia 60 mg 11:10:35 WATER PLANT MAINTENANCE MECHANIC CPT-22931 Abx/Therapy Injection 11:10:35 WATER PLANT MAINTENANCE MECHANIC CPT-000 Give Appropriate Flu Vaccine 17:01:15 WATER PLANT MAINTENANCE MECHANIC 2 CPT-93571 Fluzone High Dose (65+) 15:03:08 WATER PLANT MAINTENANCE MECHANIC 02/15 CPT-43005 Immunization Single Admin 15:03:08 WATER PLANT MAINTENANCE MECHANIC 2014 CPT-OV Office Visit 15:58:06 CDT CPT-J0897 Prolia 60 mg 08:45:38 CDT CPT-02649 Abx/Therapy Injection 08:45:38 CDT CPT-J3420 Vitamin B12 1000mcg (Cyanocobalamin) 09:26:20 WATER PLANT MAINTENANCE MECHANIC CPT-40053 Abx/Therapy Injection 09:26:20 WATER PLANT MAINTENANCE MECHANIC CPT-J3420 Vitamin B12 1000mcg (Cyanocobalamin) 09:44:40 WATER PLANT MAINTENANCE MECHANIC CPT-14463 Abx/Therapy Injection 09:44:40 WATER PLANT MAINTENANCE MECHANIC CPT-J3420 Vitamin B12 1000mcg (Cyanocobalamin) 09:15:54 WATER PLANT MAINTENANCE MECHANIC CPT-82692 Abx/Therapy Injection 09:15:54 WATER PLANT MAINTENANCE MECHANIC CPT-J3420 Vitamin B12 1000mcg (Cyanocobalamin) 09:46:44 WATER PLANT MAINTENANCE MECHANIC CPT-59140 Abx/Therapy Injection 09:46:44 WATER PLANT MAINTENANCE MECHANIC CPT-J3420 Vitamin B12 1000mcg (Cyanocobalamin) 09:47:34 WATER PLANT MAINTENANCE MECHANIC CPT-94231 Abx/Therapy Injection 09:47:34 WATER PLANT MAINTENANCE MECHANIC CPT-J3420 Vitamin B12 1000mcg (Cyanocobalamin) 14:35:50 WATER PLANT MAINTENANCE MECHANIC CPT-J3420 Vitamin B12 1000mcg (Cyanocobalamin) 09:25:05 WATER PLANT MAINTENANCE MECHANIC CPT-05877 Abx/Therapy Injection 09:25:05 WATER PLANT MAINTENANCE MECHANIC CPT-G0008 Administration of Influenza Virus Vaccine 13:36:47 CDT CPT-97830 Fluzone High-Dose Intramuscular Suspension 11/15 13:36:47 CDT CPT-J0897 Prolia 60 mg 08:50:41 CDT CPT-19980 Abx/Therapy Injection 08:50:41 CDT CPT-08871 Bone Density 12:06:12 CDT CPT-44963 Bone Density 08:54:40 CDT CPT-OV Office Visit 15:37:02 CDT CPT-44200 Postop F/U Visit 15:47:49 CDT CPT-26282 Postop F/U Visit 15:21:02 CDT [facility] Transitional Care Mgmt-High 07:52:27 CDT 20 20/06/01 CPT-28737 Venipuncture Draw Fee 13:51:18 CDT CPT-23152 Venipuncture Draw Fee 10:14:55 WATER PLANT MAINTENANCE MECHANIC CPT-56655 Venipuncture Draw Fee 13:39:45 WATER PLANT MAINTENANCE MECHANIC CPT-OV Office Visit 15:11:22 WATER PLANT MAINTENANCE MECHANIC CPT-19439 Venipuncture Draw Fee 09:20:49 WATER PLANT MAINTENANCE MECHANIC CPT-64801 Venipuncture Draw Fee 16:52:15 WATER PLANT MAINTENANCE MECHANIC CPT-81354 Venipuncture Draw Fee 10:37:24 WATER PLANT MAINTENANCE MECHANIC CPT-45914 Venipuncture Draw Fee 08:21:21 WATER PLANT MAINTENANCE MECHANIC CPT-14636 Venipuncture Draw Fee 08:30:20 WATER PLANT MAINTENANCE MECHANIC CPT-52218 Venipuncture Draw Fee 14:53:21 WATER PLANT MAINTENANCE MECHANIC CPT-95333 Venipuncture Draw Fee 09:40:56 WATER PLANT MAINTENANCE MECHANIC CPT-85751 Venipuncture Draw Fee 10:30:47 WATER PLANT MAINTENANCE MECHANIC CPT-40280 Venipuncture Draw Fee 10:46:17 WATER PLANT MAINTENANCE MECHANIC CPT-06022 Venipuncture Draw Fee 11:12:45 WATER PLANT MAINTENANCE MECHANIC CPT-04957 Venipuncture Draw Fee 09:53:33 WATER PLANT MAINTENANCE MECHANIC CPT-45472 Venipuncture Draw Fee 11:53:51 WATER PLANT MAINTENANCE MECHANIC CPT-20644 Venipuncture Draw Fee 10:33:50 WATER PLANT MAINTENANCE MECHANIC CPT-66675 Venipuncture Draw Fee 10:05:01 WATER PLANT MAINTENANCE MECHANIC CPT-87556 Venipuncture Draw Fee 14:32:52 WATER PLANT MAINTENANCE MECHANIC CPT-50067 Venipuncture Draw Fee 09:46:13 WATER PLANT MAINTENANCE MECHANIC CPT-67506 Venipuncture Draw Fee 11:34:27 WATER PLANT MAINTENANCE MECHANIC CPT-39397 Venipuncture Draw Fee 13:17:16 WATER PLANT MAINTENANCE MECHANIC CPT-36810 Venipuncture Draw Fee 12:05:39 CDT CPT-39385 Venipuncture Draw Fee 12:49:12 CDT CPT-41682 Venipuncture Draw Fee 12:37:18 CDT CPT-82150 Venipuncture Draw Fee 10:57:11 CDT CPT-29505 Venipuncture Draw Fee 13:47:40 CDT CPT-96007 Venipuncture Draw Fee 10:02:17 CDT CPT-79281 TB Tubersol 17:32:32 CDT CPT-OV Office Visit 16:21:53 CDT CPT-OV Office Visit 15:49:22 CDT CPT-OV Office Visit 17:16:31 CDT CPT-OV Office Visit 10:43:31 CDT
--- OUTSIDE RECORDS SUMMARY | 2019-02-09 12:18 | XMS REPORT | Clinical Summary ---
Author Author Renaldo, Florecita Munoz Organization [facility] Address Unknown Phone Unavailable Allergies, Adverse [...] PhD Hyperpotassemia GERD 530.81 Resolved Kylie Yokum PROJECT ENGINEERING MANAGER Esophageal reflux Health maintenance exam V70.0 Resolved Adolfo Yates MD Routine general medical examination at a health care facility Anemia 285.9 Resolved Kylie Holt PROJECT ENGINEERING MANAGER Anemia, unspecified Personal history of malignant [...] Sebaceous cyst, scalp 706.2 Resolved Kylie Holt PROJECT ENGINEERING MANAGER Sebaceous cyst Cervical lymphadenopathy, anterior, left 785.6 Resolv ed Kylie Holt PROJECT ENGINEERING MANAGER Enlargement of lymph nodes Need for prophylactic vaccination and inoculation against in fluenza V04.81 Resolved Adam Yates MD Need for prophylactic vaccination and inoculation against influenza Preventive health care V70.0 Active Kylie Holt PROJECT ENGINEERING MANAGER Routine general medical examination at a health care facility Thyroid nodule, left 241.0 Active Kylie Gonzalez PRN Nontoxic uninodular goiter Screening mammogram V76.12 Active Kylie Holt AP RN Other screening mammogram Mandy 706.2 Active Adam Yates MD Sebaceous cyst ABDOMINAL PAIN, RIGHT LOWER QUADRANT ICD-789.03 Inactive Kina Joshua PROJECT ENGINEERING MANAGER ADENOCARCINOMA, COLON, 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 Dick Yates MD ABDOMINAL PAIN, GENERALIZED ICD-789.07 Inactive Hope Benavidez MD PhD FEVER UNSPECIFIED ICD-780.60 Inactive Hope cohn MD PhD UNSPECIFIED VENOUS INSUFFICIENCY ICD-459.81 [place] ctive Adam Yates MD ADENOCARCINOMA, 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 Inac tive Hope Benavidez MD PhD Hyperkalemia ICD-276.7 Inactive Hope Benavidez MD PhD GERD ICD-530.81 Inactive Kylie Holt PROJECT ENGINEERING MANAGER 2015 Health maintenance exam ICD-V70.0 Bam Yates MD Anemia ICD-285.9 Inactive Kylie Holt PROJECT ENGINEERING MANAGER 07/24 Weakness ICD-780.79 Inactive Hope Benavidez MD [...] Sebaceous cyst, scalp ICD-706.2 Inactive Tracy shubham Yanet PROJECT ENGINEERING MANAGER Cervical lymphadenopathy, anterior, left ICD-785.6 Inactive Kylie Holt PROJECT ENGINEERING MANAGER Need for prophylactic vaccination and inoculation against in fluenza ICD-V04.81 Bam Yates MD Medication List Medication Instructions Start Date Stop Date Generic Name NDC Status Provider Patient Instruction VITAMIN D3 2000 UNIT ORAL CAPS Melaleuca-One daily CHOLECALCIFEROL 97573457601 Active Kylie Yokum PROJECT ENGINEERING MANAGER Active PROBIOTIC DAILY ORAL CAPS Take one daily PROBIOTIC PRODUCT 72869977464 Active Kylie Holt PROJECT ENGINEERING MANAGER Active IRON 325 (65 FE) MG TABS 1 every other day FERR OUS SULFATE 53932054430 No Longer Active Kylie Holt PROJECT ENGINEERING MANAGER Active FLORANEX PACK 1 pack three times daily, for bowel health LACTOBACILLUS 03214694748 No Longer Active Kylie Holt PROJECT ENGINEERING MANAGER Active LOMOTIL 2.5-0.025 MG TABS 1 tab by mouth prn 4 DIPHENOXYLATE-ATROPINE 90455828142 No Longer Active Kylie Lundum PROJECT ENGINEERING MANAGER Active MAGNESIUM GLUCONATE 250 MG TABS 1 tab tid 4 MAGNESIUM GLUCONATE 91184591722 No Longer Active Kylie Holt PROJECT ENGINEERING MANAGER Active CYANOCOBALAMIN 1000 MCG/ML INJ SOLN 1 injection every 2 weeks 20 20/01/03 CYANOCOBALAMIN 93245447065 No Longer Active Kylie Holt PROJECT ENGINEERING MANAGER Active ATENOLOL 25 MG ORAL TABS 1/2 pill by mouth daily, for headac hes, blood pressure ATENOLOL 78951279659 Active Kylie Lundum PROJECT ENGINEERING MANAGER Active PROPRANOLOL HCL 80 MG TABS 1 tab tue. and thur. 04/10 PROPRANOLOL HCL 62561725924 No Longer Active Hope Benavidez MD PhD A ctive VITAMIN D3 4000 IU 1 tab 3 times daily VITAMIN D3 4000 IU No Longer Active Hope Benavidez MD PhD Active BACTRIM DS 800-160 MG TABS 1 pill by mouth twice daily, for UTI SULFAMETHOXAZOLE-TRIMETHOPRIM 47981904176 No Longer Active A attila Benavidez MD PhD Active PROLIA 60 MG/ML SOLN 1 shot every 6 months for osteoprosis DENOSUMAB 13009955931 Active Hope Benavidez MD PhD Active CALCIUM + D + K 750-500-40 MG-UNT-MCG TABS 1 tab by mouth tw ice daily CALCIUM-VITAMIN D-VITAMIN K 79587491544 Active Hope landers MD PhD Active DAILY VALUE MULTIVITAMIN TABS 1 tab by mouth twice daily MULTIPLE VITAMIN 05058769041 Active Hope Benavidez MD PhD Active FISH OIL 306 MG CAPS 1 tab by mouth three times daily OMEGA-3 FATTY ACIDS 64066319618 Active Hope Benavidez MD PhD Active LUTEIN 10 MG TABS 1 tab daily LUTEIN 73990644009 Act cash Hope Benavidez MD PhD Active TRIAMTERENE-HCTZ 37.5-25 MG TABS 1 tab by mouth daily TRIAMTERENE-HCTZ 99056828372 Active Kylieshubham Holt PROJECT ENGINEERING MANAGER Active CYCLOBENZAPRINE HCL 10 MG TABS 1 tablet by mouth three times daily as needed for headaches CYCLOBENZAPRINE HCL 85787865903 No Longe r Active Adam Yates MD Active OMEPRAZOLE 20 MG CPDR 1 tablet by mouth daily for GERD OMEPRAZOLE 27506944589 No Longer Active Adam Yates MD A ctive ZOFRAN 8 MG TABS 1 tab by mouth every 12 hours prn 201 05/16/09 ONDANSETRON HCL 52891849732 No Longer Active Adam Yates MD Active PHENADOZ 25 MG SUPP 1 every 4 hrs. PRN PROMETHA ZINE HCL 47977150164 No Longer Active Adam Yates MD Active POTASSIUM CHLORIDE 20 MEQ PACK by mouth twice a day prn POTASSIUM CHLORIDE 72021099079 No Longer Active Adam Yates MD Active PROMETHAZINE HCL 25 MG TABS 1 Q. 4 hr. PRN PROM ETHAZINE HCL 68877332763 No Longer Active Adam Yates MD Active INNOPRAN XL 120 MG [id number] Take one by mouth daily 2 PROPRANOLOL HCL SR BEADS 17170894145 No Longer Active Adam Yates MD A ctive FLAGYL 500 MG TABS 1 pill by mouth three times daily, for diarrh ea METRONIDAZOLE 92882792552 No Longer Active Hope Benavidez MD PhD Active DYAZIDE 37.5-25 MG CAPS 1 qd TRIAMTERENE-HC TZ 66183209356 No Longer Active Hope Benavidez MD PhD Active PROZAC 20 MG CAPS 1 q d FLUOXETINE HCL 52320 284067 No Longer Active Hope Benavidez MD PhD Active SIMVASTATIN 40 MG TABS 1 qd SIMVASTATIN 004 82097302 No Longer Active Adam Yates MD Active MELOXICAM 15 MG TABS 1 qd MELOXICAM 2251068 7838 No Longer Active Adam Yates MD Active IMODIUM A-D 2 MG TABS 2 onset at diarrhea and prn. LOPERAMIDE HCL 24694074819 Active Hope Benavidez MD PhD Active EXCEDRIN EXTRA STRENGTH 250-250-65 MG TABS 1-2 q6h PRN headache 201 04/16/21 [id number] 69715553629 Active Hope Benavidez MD PhD Active FLAGYL 500 MG TABS 1 qid METRONIDAZOLE 81910 839282 No Longer Active Adam Yates MD Active LEVAQUIN 750 MG TABS 1 qd LEVOFLOXACIN 5486 6706554 No Longer Active Adam Yates MD Active ADULT ASPIRIN LOW STRENGTH 81 MG TBDP 1 qd A SPIRIN 66147643666 Active Hope Benavidez MD PhD Active LEVAQUIN 750 MG TABS 1 qd LEVAQUIN 750 MG T ABS 285128 LEVOFLOXACIN Inactive FLAGYL 500 MG TABS 1 qid FLAGYL 500 MG TABS 765451 METRONIDAZOLE Inactive MELOXICAM 15 MG TABS 1 qd MELOXICAM 15 MG T ABS 091913 MELOXICAM Inactive SIMVASTATIN 40 MG TABS 1 qd SIMVASTATIN 40 MG TABS 068554 SIMVASTATIN Inactive PROZAC 20 MG CAPS 1 q d PROZAC 20 MG CAPS 31 0385 FLUOXETINE HCL Inactive DYAZIDE 37.5-25 MG CAPS 1 qd DYAZIDE 37.5 -25 MG CAPS 654399 TRIAMTERENE-HCTZ Inactive INNOPRAN XL 120 MG [id number] Take one by mouth daily 2 INNOPRAN XL 120 MG [id number] PROPRANOLOL HCL SR BEADS Inactive PROMETHAZINE HCL 25 MG TABS 1 Q. 4 hr. PRN PROMETHAZINE HCL 25 MG TABS 967608 PROMETHAZINE HCL Inactive POTASSIUM CHLORIDE 20 MEQ PACK by mouth twice a day prn POTASSIUM CHLORIDE 20 MEQ PACK 424911 POTASSIUM CHLORIDE Inactive PHENADOZ 25 MG SUPP 1 every 4 hrs. PRN PHENADOZ 2 5 MG SUPP 629401 PROMETHAZINE HCL Inactive ZOFRAN 8 MG TABS 1 tab by mouth every 12 hours prn 201 05/16/09 ZOFRAN 8 MG TABS 956418 ONDANSETRON HCL Inactive OMEPRAZOLE 20 MG CPDR 1 tablet by mouth daily for GERD OMEPRAZOLE 20 MG CPDR 079824 OMEPRAZOLE Inactive CYCLOBENZAPRINE HCL 10 MG TABS 1 tablet by mouth three times daily as needed for headaches CYCLOBENZAPRINE HCL 10 MG TABS 938756 CYCLOBENZAPRINE HCL Inactive VITAMIN D3 4000 IU 1 tab 3 times daily VITAMIN D3 4000 IU Inactive PROPRANOLOL HCL 80 MG TABS 1 tab tue. and thur. 04/10 PROPRANOLOL HCL 80 MG TABS 140969 PROPRANOLOL HCL Inactive CYANOCOBALAMIN 1000 MCG/ML INJ SOLN 1 injection every 2 weeks 20 20/01/03 CYANOCOBALAMIN 1000 MCG/ML INJ SOLN 125478 CYANOCOBALAM IN Inactive MAGNESIUM GLUCONATE 250 MG TABS 1 tab tid 4 MAGNESIUM GLUCONATE 250 MG TABS 196936 MAGNESIUM GLUCONATE Inactive LOMOTIL 2.5-0.025 MG TABS 1 tab by mouth prn 4 LOMOTIL 2.5- 0.025 MG TABS 7984295 DIPHENOXYLATE-ATROPINE Inactive FLORANEX PACK 1 pack three times daily, for bowel health FLORANEX PACK LACTOBACILLUS Inactive IRON 325 (65 FE) MG TABS 1 every other day IRON 325 (65 FE) MG TABS 050664 FERROUS SULFATE Inactive FLAGYL 500 MG TABS 1 pill by mouth three times daily, for diarrh ea FLAGYL 500 MG TABS 688823 METRONIDAZOLE Inactive BACTRIM DS 800-160 MG TABS 1 pill by mouth twice daily, for UTI BACTRIM DS 800-160 MG TABS 091159 SULFAMETHOXAZOLE-TRIM ETHOPRIM Inactive Advance Directives Directive Description [...] Panel - Chemistry sodium, serum 142 mmol/L 320-908 0682/04/20 carbon dioxide, venous blood 34.7 mmol/L 21.0-32 [...] ... - Chemistry sodium, serum 139 mmol/L 995-296 2411/10/20 carbon dioxide, venous blood 32.2 mmol/L 21.0-32 [...] - Chemi stry cholesterol, serum 200 mg/dL 904-030 1461/11/22 triglyceride, serum, fasting 129 mg/dL 30-200 HDL cholesterol, serum 56 mg/dL 32-96 LDL cholesterol, serum 118 mg/dL 0-130 calcium, serum 9.0 mg/dL 8.5-10.1 Encounters Code Encounter Date Provider Facility CPT-05113 Level 3 New Patient 16:22:01 CYBERATHLETE Adam Yates MD [facility] CPT-52561 Level 4 Est. Patient 17:00:48 CDT Kylie Lund Formerly named [facility] CPT-63767 Level 3 Est. Patient 13:15:54 CDT Kylie Lund [facility] CPT-54993 Level 3 Est. Patient 09:10:11 CDT Kylie Lund [facility] CPT-93076 Level 4 Est. Patient 12:08:30 CYBERATHLETE Hope cohn MD PhD [facility] CPT-44539 Level 4 Est. Patient 19:08:42 CYBERATHLETE Hope cohn MD PhD [facility] CPT-24644 Level 4 Est. Patient 20:04:51 CDT Hope cohn MD PhD [facility] CPT-74662 Level 3 New Patient 01:46:11 CYBERATHLETE Hope landers MD PhD [facility] Procedures Code Procedure Name Date Entry Date Standard Desc ription CPT-63642 Lipid - LAB USE ONLY 10:01:52 CYBERATHLETE 2 CPT-29527 Calcium - LAB USE ONLY 10:01:51 CYBERATHLETE CPT-03170 Venipuncture Draw Fee 10:01:51 CYBERATHLETE CPT-LR Lesion Removal 16:22:01 CYBERATHLETE CPT-91612 TSH - LAB USE ONLY 14:26:02 CDT CPT-52666 CMP - LAB USE ONLY 14:26:01 CDT CPT-47860 CBC with Diff - LAB USE ONLY 14:26:01 CDT 2 CPT-71677 Venipuncture Draw Fee 14:26:01 CDT CPT-67577 First Vx - Ix admin for Medicare patients 13:27:08 CDT CPT-93862 Fluzone High-Dose Intramuscular Suspension 11/26 13:27:08 CDT CPT-G0438 Initial Annual Wellness Exam 14:19:57 CD T CPT-G0009 Administration of Pneumococcal Vaccine 9 11:36:25 CDT CPT-14168 Prevnar 13 Intramuscular Suspension 1 1:36:25 CDT CPT-50709 Prevnar 13 Intramuscular Suspension 1 0:40:58 CDT CPT-J0897 Prolia 60 mg 10:37:16 CDT CPT-94895 Abx/Therapy Injection 10:37:16 CDT CPT-J0897 Prolia 60 mg 16:09:34 CYBERATHLETE CPT-J0897 Prolia 60 mg 11:10:35 CYBERATHLETE CPT-55776 Abx/Therapy Injection 11:10:35 CYBERATHLETE CPT-000 Give Appropriate Flu Vaccine 17:01:15 CYBERATHLETE 2 CPT-76900 Fluzone High Dose (65+) 15:03:08 CYBERATHLETE 02/15 CPT-03399 Immunization Single Admin 15:03:08 CYBERATHLETE 2014 CPT-OV Office Visit 15:58:06 CDT CPT-J0897 Prolia 60 mg 08:45:38 CDT CPT-55240 Abx/Therapy Injection 08:45:38 CDT CPT-J3420 Vitamin B12 1000mcg (Cyanocobalamin) 09:26:20 CYBERATHLETE CPT-87970 Abx/Therapy Injection 09:26:20 CYBERATHLETE CPT-J3420 Vitamin B12 1000mcg (Cyanocobalamin) 09:44:40 CYBERATHLETE CPT-60532 Abx/Therapy Injection 09:44:40 CYBERATHLETE CPT-J3420 Vitamin B12 1000mcg (Cyanocobalamin) 09:15:54 CYBERATHLETE CPT-36159 Abx/Therapy Injection 09:15:54 CYBERATHLETE CPT-J3420 Vitamin B12 1000mcg (Cyanocobalamin) 09:46:44 CYBERATHLETE CPT-26643 Abx/Therapy Injection 09:46:44 CYBERATHLETE CPT-J3420 Vitamin B12 1000mcg (Cyanocobalamin) 09:47:34 CYBERATHLETE CPT-34880 Abx/Therapy Injection 09:47:34 CYBERATHLETE CPT-J3420 Vitamin B12 1000mcg (Cyanocobalamin) 14:35:50 CYBERATHLETE CPT-J3420 Vitamin B12 1000mcg (Cyanocobalamin) 09:25:05 CYBERATHLETE CPT-27509 Abx/Therapy Injection 09:25:05 CYBERATHLETE CPT-G0008 Administration of Influenza Virus Vaccine 13:36:47 CDT CPT-15878 Fluzone High-Dose Intramuscular Suspension 11/15 13:36:47 CDT CPT-J0897 Prolia 60 mg 08:50:41 CDT CPT-68937 Abx/Therapy Injection 08:50:41 CDT CPT-34661 Bone Density 12:06:12 CDT CPT-52086 Bone Density 08:54:40 CDT CPT-OV Office Visit 15:37:02 CDT CPT-67050 Postop F/U Visit 15:47:49 CDT CPT-74702 Postop F/U Visit 15:21:02 CDT CPT-[facility] Transitional Care Mgmt-High 07:52:27 CDT 20 20/06/01 CPT-52981 Venipuncture Draw Fee 13:51:18 CDT CPT-97436 Venipuncture Draw Fee 10:14:55 CYBERATHLETE CPT-87247 Venipuncture Draw Fee 13:39:45 CYBERATHLETE CPT-OV Office Visit 15:11:22 CYBERATHLETE CPT-28613 Venipuncture Draw Fee 09:20:49 CYBERATHLETE CPT-35999 Venipuncture Draw Fee 16:52:15 CYBERATHLETE CPT-43883 Venipuncture Draw Fee 10:37:24 CYBERATHLETE CPT-74497 Venipuncture Draw Fee 08:21:21 CYBERATHLETE CPT-72262 Venipuncture Draw Fee 08:30:20 CYBERATHLETE CPT-87517 Venipuncture Draw Fee 14:53:21 CYBERATHLETE CPT-85956 Venipuncture Draw Fee 09:40:56 CYBERATHLETE CPT-79352 Venipuncture Draw Fee 10:30:47 CYBERATHLETE CPT-05232 Venipuncture Draw Fee 10:46:17 CYBERATHLETE CPT-41571 Venipuncture Draw Fee 11:12:45 CYBERATHLETE CPT-92844 Venipuncture Draw Fee 09:53:33 CYBERATHLETE CPT-99356 Venipuncture Draw Fee 11:53:51 CYBERATHLETE CPT-20559 Venipuncture Draw Fee 10:33:50 CYBERATHLETE CPT-70131 Venipuncture Draw Fee 10:05:01 CYBERATHLETE CPT-84427 Venipuncture Draw Fee 14:32:52 CYBERATHLETE CPT-76571 Venipuncture Draw Fee 09:46:13 CYBERATHLETE CPT-11642 Venipuncture Draw Fee 11:34:27 CYBERATHLETE CPT-66450 Venipuncture Draw Fee 13:17:16 CYBERATHLETE CPT-77820 Venipuncture Draw Fee 12:05:39 CDT CPT-43387 Venipuncture Draw Fee 12:49:12 CDT CPT-95687 Venipuncture Draw Fee 12:37:18 CDT CPT-10005 Venipuncture Draw Fee 10:57:11 CDT CPT-46968 Venipuncture Draw Fee 13:47:40 CDT CPT-75493 Venipuncture Draw Fee 10:02:17 CDT CPT-41340 TB Tubersol 17:32:32 CDT CPT-OV Office Visit 16:21:53 CDT CPT-OV Office Visit 15:49:22 CDT CPT-OV Office Visit 17:16:31 CDT CPT-OV Office Visit 10:43:31 CDT
--- OUTSIDE RECORDS SUMMARY | 2019-02-09 12:19 | XMS REPORT | Clinical Summary ---
Author Author Admin, Florecita Munoz Organization [facility] [employer] Address Unknown Phone Unavailable Allergies, Adverse Reactions, [...] a nd digestive system, NEC V58.75 Resolved Aadm Yates MD Af tercare following surgery of [...] Sebaceous cyst, scalp 706.2 Resolved Kylie Holt OPERATIONS ENGINEER Sebaceous cyst Cervical lymphadenopathy, anterior, left 785.6 Active Kylie Yanet OPERATIONS ENGINEER Enlargement of lymph nodes Need for prophylactic vaccination and inoculation against in fluenza V04.81 Active Citlaly Watkins RMA Need for prophylactic vaccination and inoculation against influenza ADENOCARCINOMA, COLON, 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 Dick Yates MD ABDOMINAL PAIN, GENERALIZED ICD-789.07 Inactive Hope Benavidez MD PhD FEVER UNSPECIFIED ICD-780.60 Inactive Hope cohn MD PhD UNSPECIFIED VENOUS INSUFFICIENCY ICD-459.81 [place] ctive Adam Yates MD ADENOCARCINOMA, 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 Inac tive Hope Benavidez MD PhD Hyperkalemia ICD-276.7 Inactive Hope Benavidez MD PhD Health maintenance exam ICD-V70.0 Bam Yates MD Weakness ICD-780.79 Inactive Hope Benavidez MD P hD ABDOMINAL PAIN, RIGHT LOWER QUADRANT ICD-789.03 Inactive Kina Joshua APRN Asymptomatic postmenopausal status (age-related) (natural) I CD-V49.81 Inactive Hope Benavidez MD PhD Dysuria ICD-788.1 Inactive Hope Benavidez MD PhD 201 05/19/01 Sebaceous cyst, scalp ICD-706.2 Inactive Tracy hi Kevonum OPERATIONS ENGINEER Aftercare following surgery of the teeth,oral cavity a nd digestive system, NEC ICD-V58.75 Inactive Adam Yates MD Colon cancer ICD-153.9 Inactive Adam luna MD Medication List Medication Instructions Start Date Stop Date Generic Name NDC Status Provider Patient Instruction VITAMIN D3 2000 UNIT ORAL CAPS Melaleuca-One daily CHOLECALCIFEROL 90375737567 Active Kylie Yokum OPERATIONS ENGINEER Active PROBIOTIC DAILY ORAL CAPS Take one daily PROBIOTIC PRODUCT 50753325194 Active Kylie Yokum OPERATIONS ENGINEER Active IRON 325 (65 FE) MG TABS 1 every other day FERR OUS SULFATE 28210443723 No Longer Active Kylie Yokum OPERATIONS ENGINEER Active FLORANEX PACK 1 pack three times daily, for bowel health LACTOBACILLUS 41487452960 No Longer Active Kylie Kevonum OPERATIONS ENGINEER Active LOMOTIL 2.5-0.025 MG TABS 1 tab by mouth prn 4 DIPHENOXYLATE-ATROPINE 89532225039 No Longer Active Kylie Yokum OPERATIONS ENGINEER Active MAGNESIUM GLUCONATE 250 MG TABS 1 tab tid 4 MAGNESIUM GLUCONATE 23791971951 No Longer Active Kylie Yokum OPERATIONS ENGINEER Active CYANOCOBALAMIN 1000 MCG/ML INJ SOLN 1 injection every 2 weeks 20 20/01/03 CYANOCOBALAMIN 73357328505 No Longer Active Kylie Yokum OPERATIONS ENGINEER Active ATENOLOL 25 MG ORAL TABS 1/2 pill by mouth daily, for headac hes, blood pressure ATENOLOL 83889231781 Active Kylie Yokum OPERATIONS ENGINEER Active PROPRANOLOL HCL 80 MG TABS 1 tab tue. and thur. 04/10 PROPRANOLOL HCL 17431583154 No Longer Active Hope Benavidez MD PhD A ctive VITAMIN D3 4000 IU 1 tab 3 times daily VITAMIN D3 4000 IU No Longer Active Hope Benavidez MD PhD Active BACTRIM DS 800-160 MG TABS 1 pill by mouth twice daily, for UTI SULFAMETHOXAZOLE-TRIMETHOPRIM 52699187578 No Longer Active A attila Benavidez MD PhD Active PROLIA 60 MG/ML SOLN 1 shot every 6 months for osteoprosis DENOSUMAB 81706494410 Active Hope Benavidez MD PhD Active CALCIUM + D + K 750-500-40 MG-UNT-MCG TABS 1 tab by mouth tw ice daily CALCIUM-VITAMIN D-VITAMIN K 33001928618 Active Hope landers MD PhD Active DAILY VALUE MULTIVITAMIN TABS 1 tab by mouth twice daily MULTIPLE VITAMIN 10032288666 Active Hope Benavidez MD PhD Active FISH OIL 306 MG CAPS 1 tab by mouth three times daily OMEGA-3 FATTY ACIDS 78616481524 Active Hope Benavidez MD PhD Active LUTEIN 10 MG TABS 1 tab daily LUTEIN 35477341845 Act cash Hope Benavidez MD PhD Active TRIAMTERENE-HCTZ 37.5-25 MG TABS 1 tab by mouth daily TRIAMTERENE-HCTZ 57783444236 Active Kylie Lundoliver REYES Active CYCLOBENZAPRINE HCL 10 MG TABS 1 tablet by mouth three times daily as needed for headaches CYCLOBENZAPRINE HCL 92302759947 No Longe r Active Adam Yates MD Active OMEPRAZOLE 20 MG CPDR 1 tablet by mouth daily for GERD OMEPRAZOLE 21405146651 No Longer Active Adam Yates MD A ctive ZOFRAN 8 MG TABS 1 tab by mouth every 12 hours prn 201 05/16/09 ONDANSETRON HCL 58136401146 No Longer Active Adma Yates MD Active PHENADOZ 25 MG SUPP 1 every 4 hrs. PRN PROMETHA ZINE HCL 76430513477 No Longer Active Adam Yates MD Active POTASSIUM CHLORIDE 20 MEQ PACK by mouth twice a day prn POTASSIUM CHLORIDE 25898072532 No Longer Active Adam Yates MD Active PROMETHAZINE HCL 25 MG TABS 1 Q. 4 hr. PRN PROM ETHAZINE HCL 91521757795 No Longer Active Adam Yates MD Active INNOPRAN XL 120 MG [id number] Take one by mouth daily 2 PROPRANOLOL HCL SR BEADS 12729554650 No Longer Active Adam Yates MD A ctive FLAGYL 500 MG TABS 1 pill by mouth three times daily, for diarrh ea METRONIDAZOLE 45206550673 No Longer Active Hope Benavidez MD PhD Active DYAZIDE 37.5-25 MG CAPS 1 qd TRIAMTERENE-HC TZ 43924668738 No Longer Active Hope Benavidez MD PhD Active PROZAC 20 MG CAPS 1 q d FLUOXETINE HCL 27535 607795 No Longer Active Hope Benavidez MD PhD Active SIMVASTATIN 40 MG TABS 1 qd SIMVASTATIN 004 11549996 No Longer Active Adam Yates MD Active MELOXICAM 15 MG TABS 1 qd MELOXICAM 9392849 8908 No Longer Active Adam Yates MD Active IMODIUM A-D 2 MG TABS 2 onset at diarrhea and prn. LOPERAMIDE HCL 79081510401 Active Hope Benavidez MD PhD Active EXCEDRIN EXTRA STRENGTH 250-250-65 MG TABS 1-2 q6h PRN headache 201 04/16/21 [id number]-[id number] 59517003146 Active Hope Benavidez MD PhD Active FLAGYL 500 MG TABS 1 qid METRONIDAZOLE 05501 643175 No Longer Active Adam Yates MD Active LEVAQUIN 750 MG TABS 1 qd LEVOFLOXACIN 5486 5084940 No Longer Active Adam Yates MD Active ADULT ASPIRIN LOW STRENGTH 81 MG TBDP 1 qd A SPIRIN 26797389109 Active Hope Benavidez MD PhD Active LEVAQUIN 750 MG TABS 1 qd LEVAQUIN 750 MG T ABS 221864 LEVOFLOXACIN Inactive FLAGYL 500 MG TABS 1 qid FLAGYL 500 MG TABS 395060 METRONIDAZOLE Inactive MELOXICAM 15 MG TABS 1 qd MELOXICAM 15 MG T ABS 149434 MELOXICAM Inactive SIMVASTATIN 40 MG TABS 1 qd SIMVASTATIN 40 MG TABS 003572 SIMVASTATIN Inactive PROZAC 20 MG CAPS 1 q d PROZAC 20 MG CAPS 31 0385 FLUOXETINE HCL Inactive DYAZIDE 37.5-25 MG CAPS 1 qd DYAZIDE 37.5 -25 MG CAPS 350321 TRIAMTERENE-HCTZ Inactive INNOPRAN XL 120 MG [id number] Take one by mouth daily 2 INNOPRAN XL 120 MG [id number] PROPRANOLOL HCL SR BEADS Inactive PROMETHAZINE HCL 25 MG TABS 1 Q. 4 hr. PRN PROMETHAZINE HCL 25 MG TABS 379870 PROMETHAZINE HCL Inactive POTASSIUM CHLORIDE 20 MEQ PACK by mouth twice a day prn POTASSIUM CHLORIDE 20 MEQ PACK 459179 POTASSIUM CHLORIDE Inactive PHENADOZ 25 MG SUPP 1 every 4 hrs. PRN PHENADOZ 2 5 MG SUPP 360265 PROMETHAZINE HCL Inactive ZOFRAN 8 MG TABS 1 tab by mouth every 12 hours prn 201 05/16/09 ZOFRAN 8 MG TABS 188789 ONDANSETRON HCL Inactive OMEPRAZOLE 20 MG CPDR 1 tablet by mouth daily for GERD OMEPRAZOLE 20 MG CPDR 963015 OMEPRAZOLE Inactive CYCLOBENZAPRINE HCL 10 MG TABS 1 tablet by mouth three times daily as needed for headaches CYCLOBENZAPRINE HCL 10 MG TABS 527016 CYCLOBENZAPRINE HCL Inactive VITAMIN D3 4000 IU 1 tab 3 times daily VITAMIN D3 4000 IU Inactive PROPRANOLOL HCL 80 MG TABS 1 tab tue. and thur. 04/10 PROPRANOLOL HCL 80 MG TABS 349710 PROPRANOLOL HCL Inactive CYANOCOBALAMIN 1000 MCG/ML INJ SOLN 1 injection every 2 weeks 20 20/01/03 CYANOCOBALAMIN 1000 MCG/ML INJ SOLN 468063 CYANOCOBALAM IN Inactive MAGNESIUM GLUCONATE 250 MG TABS 1 tab tid 4 MAGNESIUM GLUCONATE 250 MG TABS 611735 MAGNESIUM GLUCONATE Inactive LOMOTIL 2.5-0.025 MG TABS 1 tab by mouth prn 4 LOMOTIL 2.5- 0.025 MG TABS 9412457 DIPHENOXYLATE-ATROPINE Inactive FLORANEX PACK 1 pack three times daily, for bowel health FLORANEX PACK LACTOBACILLUS Inactive IRON 325 (65 FE) MG TABS 1 every other day IRON 325 (65 FE) MG TABS 531359 FERROUS SULFATE Inactive FLAGYL 500 MG TABS 1 pill by mouth three times daily, for diarrh ea FLAGYL 500 MG TABS 523953 METRONIDAZOLE Inactive BACTRIM DS 800-160 MG TABS 1 pill by mouth twice daily, for UTI BACTRIM DS 800-160 MG TABS 628675 SULFAMETHOXAZOLE-TRIM ETHOPRIM Inactive Advance Directives Directive Description Start Date PERMISSION TO SHARE Immunizations Vaccine Administration Date Value Standard Stevan [...] Comp. Metabolic Panel - Chemistry sodium, serum 138 mmol/L 145-850 5675/10/23 carbon dioxide, venous blood 29.5 mmol/L 21.0-32 .0 potassium, serum 3.7 mmol/L 3.5-5.2 chloride, serum 100 mmol/L 98-107 blood glucose 93 mg/dL 65-110 urea nitrogen, blood 29 mg/dL 7-18 creatinine, serum 1.25 mg/dL 0.55-1.30 alanine aminotransferase (SGPT), serum 50 U/L 12-78 aspartate aminotransferase (SGOT), serum 34 U/L 15-37 calcium, serum 9.5 mg/dL 8.5-10.1 bilirubin, serum, total 0.40 mg/dL 0.00-1.00 sodium, serum 142 mmol/L 999-126 3993/04/20 carbon dioxide, venous blood 34.7 mmol/L 21.0-32 [...] CBC W/DIFF, Comp. Metabolic Panel - Hematology erythrocyte (RBC) count 4.39 10^6/MM^3 10*6/mm3 4.04-5.4 8 leukocyte count, blood 5.9 10^3/MM^3 10*3/mm3 4.6-10.2 [...] 11 .6-14.8 platelet count 204 10^3/MM^3 10*3/mm3 126-277 1909/10/23 lymphocytes as percent of blood leukocytes 34.5 % 20.5-51.1 monocytes as percent of blood leukocytes 7.4 % 1.7-9.3 neutrophils as percent of blood leukocytes 54.5 % 42.2-75.2 leukocyte count, blood 5.5 10^3/MM^3 10*3/mm3 4.6-10.2 hemoglobin, blood 14.9 g/dL 12.0-16.0 hematocrit, blood 43.1 % 36.0-46.0 mean corpuscular volume, RBC 98 fL 80-97 mean corpuscular hemoglobin, RBC 33.9 pg 27. 0-31.2 mean corpuscular hemoglobin concentration, RBC 34.5 G/DL % 31.8-35.4 red blood cell distribution width 12.9 % 11 .6-14.8 platelet count 189 10^3/MM^3 10*3/mm3 142-424 Lab Report: CEA - Serology carcinoembryonic antigen 1.1 ng/mL carcinoembryonic antigen 0.9 ng/mL Lab Report: Lipid Panel, MICROALBUMIN, T hyroid Stimulating Hormone (L) - Chemistry cholesterol, serum 227 mg/dL 313-117 4342/10/23 triglyceride, serum, fasting 144 mg/dL 30-200 HDL cholesterol, serum 60 mg/dL 32-96 LDL cholesterol, serum 138 mg/dL 0-130 albumin/creatinine ratio, urine < 30 mg/g mg/g{creat} 0-2 9 TSH 1.24 m[iU]/mL 0.36-3.74 Lab Report: Lipid Panel, MICROALBUMIN, T hyroid Stimulating Hormone (L) - Lab microalbumin, urine 10 0-19 Encounters Code Encounter Date Provider Facility CPT-89522 Level 3 Est. Patient 13:15:54 CDT Kylie Lund [facility] CPT-95788 Level 3 Est. Patient 09:10:11 CDT Kylie Lund [facility] CPT-46038 Level 4 Est. Patient 12:08:30 DISTRICT FIRE CHIEF Hope cohn MD PhD [facility] CPT-35254 Level 4 Est. Patient 19:08:42 DISTRICT FIRE CHIEF Hope cohn MD PhD [facility] CPT-70303 Level 4 Est. Patient 20:04:51 CDT Hope cohn MD PhD [facility] CPT-55967 Level 3 New Patient 01:46:11 DISTRICT FIRE CHIEF Hope landers MD PhD [facility] Procedures Code Procedure Name Date Entry Date Standard Desc ription CPT-J0897 Prolia 60 mg 10:37:16 CDT CPT-34278 Abx/Therapy Injection 10:37:16 CDT CPT-J0897 Prolia 60 mg 16:09:34 DISTRICT FIRE CHIEF CPT-J0897 Prolia 60 mg 11:10:35 DISTRICT FIRE CHIEF CPT-19545 Abx/Therapy Injection 11:10:35 DISTRICT FIRE CHIEF CPT-000 Give Appropriate Flu Vaccine 17:01:15 DISTRICT FIRE CHIEF 2 CPT-06062 Fluzone High Dose (65+) 15:03:08 DISTRICT FIRE CHIEF 02/15 CPT-07285 Immunization Single Admin 15:03:08 DISTRICT FIRE CHIEF 2014 CPT-OV Office Visit 15:58:06 CDT CPT-J0897 Prolia 60 mg 08:45:38 CDT CPT-24352 Abx/Therapy Injection 08:45:38 CDT CPT-J3420 Vitamin B12 1000mcg (Cyanocobalamin) 09:26:20 DISTRICT FIRE CHIEF CPT-99964 Abx/Therapy Injection 09:26:20 DISTRICT FIRE CHIEF CPT-J3420 Vitamin B12 1000mcg (Cyanocobalamin) 09:44:40 DISTRICT FIRE CHIEF CPT-93807 Abx/Therapy Injection 09:44:40 DISTRICT FIRE CHIEF CPT-J3420 Vitamin B12 1000mcg (Cyanocobalamin) 09:15:54 DISTRICT FIRE CHIEF CPT-43900 Abx/Therapy Injection 09:15:54 DISTRICT FIRE CHIEF CPT-J3420 Vitamin B12 1000mcg (Cyanocobalamin) 09:46:44 DISTRICT FIRE CHIEF CPT-72461 Abx/Therapy Injection 09:46:44 DISTRICT FIRE CHIEF CPT-J3420 Vitamin B12 1000mcg (Cyanocobalamin) 09:47:34 DISTRICT FIRE CHIEF CPT-22580 Abx/Therapy Injection 09:47:34 DISTRICT FIRE CHIEF CPT-J3420 Vitamin B12 1000mcg (Cyanocobalamin) 14:35:50 DISTRICT FIRE CHIEF CPT-J3420 Vitamin B12 1000mcg (Cyanocobalamin) 09:25:05 DISTRICT FIRE CHIEF CPT-29007 Abx/Therapy Injection 09:25:05 DISTRICT FIRE CHIEF CPT-G0008 Administration of Influenza Virus Vaccine 13:36:47 CDT CPT-04339 Fluzone High-Dose Intramuscular Suspension 11/15 13:36:47 CDT CPT-J0897 Prolia 60 mg 08:50:41 CDT CPT-20465 Abx/Therapy Injection 08:50:41 CDT CPT-56540 Bone Density 12:06:12 CDT CPT-84876 Bone Density 08:54:40 CDT CPT-OV Office Visit 15:37:02 CDT CPT-69258 Postop F/U Visit 15:47:49 CDT CPT-02945 Postop F/U Visit 15:21:02 CDT CPT-TCMH Transitional Care Mgmt-High 07:52:27 CDT 20 20/06/01 CPT-78767 Venipuncture Draw Fee 13:51:18 CDT CPT-39725 Venipuncture Draw Fee 10:14:55 DISTRICT FIRE CHIEF CPT-30284 Venipuncture Draw Fee 13:39:45 DISTRICT FIRE CHIEF CPT-OV Office Visit 15:11:22 DISTRICT FIRE CHIEF CPT-91382 Venipuncture Draw Fee 09:20:49 DISTRICT FIRE CHIEF CPT-45483 Venipuncture Draw Fee 16:52:15 DISTRICT FIRE CHIEF CPT-59585 Venipuncture Draw Fee 10:37:24 DISTRICT FIRE CHIEF CPT-34764 Venipuncture Draw Fee 08:21:21 DISTRICT FIRE CHIEF CPT-91523 Venipuncture Draw Fee 08:30:20 DISTRICT FIRE CHIEF CPT-07809 Venipuncture Draw Fee 14:53:21 DISTRICT FIRE CHIEF CPT-26384 Venipuncture Draw Fee 09:40:56 DISTRICT FIRE CHIEF CPT-36869 Venipuncture Draw Fee 10:30:47 DISTRICT FIRE CHIEF CPT-61936 Venipuncture Draw Fee 10:46:17 DISTRICT FIRE CHIEF CPT-74717 Venipuncture Draw Fee 11:12:45 DISTRICT FIRE CHIEF CPT-10496 Venipuncture Draw Fee 09:53:33 DISTRICT FIRE CHIEF CPT-34376 Venipuncture Draw Fee 11:53:51 DISTRICT FIRE CHIEF CPT-63402 Venipuncture Draw Fee 10:33:50 DISTRICT FIRE CHIEF CPT-44819 Venipuncture Draw Fee 10:05:01 DISTRICT FIRE CHIEF CPT-06992 Venipuncture Draw Fee 14:32:52 DISTRICT FIRE CHIEF CPT-35348 Venipuncture Draw Fee 09:46:13 DISTRICT FIRE CHIEF CPT-23568 Venipuncture Draw Fee 11:34:27 DISTRICT FIRE CHIEF CPT-13898 Venipuncture Draw Fee 13:17:16 DISTRICT FIRE CHIEF CPT-09949 Venipuncture Draw Fee 12:05:39 CDT CPT-53363 Venipuncture Draw Fee 12:49:12 CDT CPT-72449 Venipuncture Draw Fee 12:37:18 CDT CPT-75925 Venipuncture Draw Fee 10:57:11 CDT CPT-29730 Venipuncture Draw Fee 13:47:40 CDT CPT-90170 Venipuncture Draw Fee 10:02:17 CDT CPT-88879 TB Tubersol 17:32:32 CDT CPT-OV Office Visit 16:21:53 CDT CPT-OV Office Visit 15:49:22 CDT CPT-OV Office Visit 17:16:31 CDT CPT-OV Office Visit 10:43:31 CDT
--- OUTSIDE RECORDS SUMMARY | 2019-02-09 12:19 | XMS REPORT | Clinical Summary ---
Author Author Florecita Macario Organization [facility] Address Unknown Phone Unavailable Allergies, Adverse Reactions, Alerts Allergy Name Reaction Description Start Date Severity Status Pr ovider No Known Allergies Citlaly Watkins A Conditions or Problems Problem Name Problem Code [...] IN SITU OF BREAST 233.0 Active Kelsy MEREDITHA Carcinoma in situ of breast ADENOCARCINOMA, ASCENDING [...] Asymptomatic postmenopausal status (age-related) (natural) Diarrhea 787.91 Active Hope Benavidez MD PhD Diarrhea Osteoporosis 733.00 Active Hope Benavidez MD PhD Osteoporosis, unspecified Dysuria 788.1 Resolved Hope Benavidez MD PhD Dysuria Vitamin D deficiency 268.9 Active Hope Benavidez MD PhD Unspecified vitamin D deficiency Peripheral neuropathy 356.9 Active Hope Benavidez MD PhD Unspecified idiopathic peripheral neuropathy Vitamin B12 deficiency 266.2 Active Citlaly Meff ord RMA Other B-complex deficiencies Adenocarcinoma, ascending colon 153.6 Active 2014 Kelsy Mckeon RMA Malignant neoplasm of ascending colon Sebaceous cyst, scalp 706.2 Active Hope Benavidez MD PhD Sebaceous cyst ABDOMINAL PAIN, RIGHT LOWER QUADRANT ICD-789.03 Inactive Kina Joshua APRN ADENOCARCINOMA, COLON, 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 Dick Yates MD ABDOMINAL PAIN, GENERALIZED ICD-789.07 Inactive Hope Benavidez MD PhD FEVER UNSPECIFIED ICD-780.60 Inactive Hope cohn MD PhD UNSPECIFIED VENOUS INSUFFICIENCY ICD-459.81 Delta ctive Adam Yates MD ADENOCARCINOMA, ASCENDING COLON [...] Inactive Hope Benavidez MD PhD 201 05/19/01 Medication List Medication Instructions Start Date Stop Date Generic Name NDC Status Provider Patient Instruction PROPRANOLOL HCL 80 MG TABS 1 tab tue. and thur. 04/10 PROPRANOLOL HCL 89054929900 No Longer Active Hope Benavidez MD PhD A ctive IRON 325 (65 FE) MG TABS 1 every other day FERROUS SULFATE 23505246986 Active Hope Benavidez MD PhD Active VITAMIN D3 4000 IU 1 tab 3 times daily VITAMIN D3 4000 IU No Longer Active Hope Benavidez MD PhD Active CYANOCOBALAMIN 1000 MCG/ML INJ SOLN 1 injection every 2 weeks 01/09 CYANOCOBALAMIN 82590114940 Active Laura Elder Active BACTRIM DS 800-160 MG TABS 1 pill by mouth twice daily, for UTI SULFAMETHOXAZOLE-TRIMETHOPRIM 25238918345 No Longer Active A attila Benavidez MD PhD Active PROLIA 60 MG/ML SOLN 1 shot every 6 months for osteoprosis DENOSUMAB 39948670436 Active Hope Benavidez MD PhD Active CALCIUM + D + K 750-500-40 MG-UNT-MCG TABS 1 tab by mouth tw ice daily CALCIUM-VITAMIN D-VITAMIN K 11325628872 Active Hope landers MD PhD Active DAILY VALUE MULTIVITAMIN TABS 1 tab by mouth twice daily MULTIPLE VITAMIN 78087520401 Active Hope Benavidez MD PhD Active FISH OIL 306 MG CAPS 1 tab by mouth three times daily OMEGA-3 FATTY ACIDS 12746660144 Active Hope Benavidez MD PhD Active LUTEIN 10 MG TABS 1 tab daily LUTEIN 37067085492 Act cash Hope Benavidez MD PhD Active FLORANEX PACK 1 pack three times daily, for bowel health LACTOBACILLUS 12139624575 Active Hope Benavidez MD PhD Active LOMOTIL 2.5-0.025 MG TABS 1 tab by mouth prn DIPHENOXYLATE-ATROPINE 86541388511 Active Hope Benavidez MD PhD Active TRIAMTERENE-HCTZ 37.5-25 MG TABS 1 tab by mouth daily TRIAMTERENE-HCTZ 61814288868 Active Hope Benavidez MD PhD Acti ve MAGNESIUM GLUCONATE 250 MG TABS 1 tab tid MAGN ESIUM GLUCONATE 50079562986 Active dAam Yates MD Active ATENOLOL 50 MG TABS 1/2 tab q other day m-w-f ATE NOLOL 73191454777 Active Hope Benavidez MD PhD Active CYCLOBENZAPRINE HCL 10 MG TABS 1 tablet by mouth three times daily as needed for headaches CYCLOBENZAPRINE HCL 12798727838 No Longe r Active Adam Yates MD Active OMEPRAZOLE 20 MG CPDR 1 tablet by mouth daily for GERD OMEPRAZOLE 02732698072 No Longer Active Adam Yates MD A ctive ZOFRAN 8 MG TABS 1 tab by mouth every 12 hours prn 201 05/16/09 ONDANSETRON HCL 40050437616 No Longer Active Adam Yates MD Active PHENADOZ 25 MG SUPP 1 every 4 hrs. PRN PROMETHA ZINE HCL 35212110036 No Longer Active Adam Yates MD Active POTASSIUM CHLORIDE 20 MEQ PACK by mouth twice a day prn POTASSIUM CHLORIDE 69941291708 No Longer Active Adam Yates MD Active PROMETHAZINE HCL 25 MG TABS 1 Q. 4 hr. PRN PROM ETHAZINE HCL 48882805468 No Longer Active Aadm Yates MD Active INNOPRAN XL 120 MG [id number] Take one by mouth daily 2 PROPRANOLOL HCL SR BEADS 02797438450 No Longer Active Adam Yates MD A ctive FLAGYL 500 MG TABS 1 pill by mouth three times daily, for diarrh ea METRONIDAZOLE 92983704891 No Longer Active Hope Benavidez MD PhD Active DYAZIDE 37.5-25 MG CAPS 1 qd TRIAMTERENE-HC TZ 99020212598 No Longer Active Hope Benavidez MD PhD Active PROZAC 20 MG CAPS 1 q d FLUOXETINE HCL 53072 208642 No Longer Active Hope Benavidez MD PhD Active SIMVASTATIN 40 MG TABS 1 qd SIMVASTATIN 004 90202268 No Longer Active Adam Yates MD Active MELOXICAM 15 MG TABS 1 qd MELOXICAM 6597300 0980 No Longer Active Adam Yates MD Active IMODIUM A-D 2 MG TABS 2 onset at diarrhea and prn. LOPERAMIDE HCL 07511588797 Active Hope Benavidez MD PhD Active EXCEDRIN EXTRA STRENGTH 250-250-65 MG TABS 1-2 q6h PRN headache 201 04/16/21 [id number]-[id number]-[id number] 98495243057 Active Hope Benavidez MD PhD Active FLAGYL 500 MG TABS 1 qid METRONIDAZOLE 32203 378265 No Longer Active Adam Yates MD Active LEVAQUIN 750 MG TABS 1 qd LEVOFLOXACIN 5486 5866621 No Longer Active Adam Yates MD Active ADULT ASPIRIN LOW STRENGTH 81 MG TBDP 1 qd A SPIRIN 40716063084 Active Hope Benavidez MD PhD Active LEVAQUIN 750 MG TABS 1 qd LEVAQUIN 750 MG T ABS 621023 LEVOFLOXACIN Inactive FLAGYL 500 MG TABS 1 qid FLAGYL 500 MG TABS 862983 METRONIDAZOLE Inactive MELOXICAM 15 MG TABS 1 qd MELOXICAM 15 MG T ABS 145447 MELOXICAM Inactive SIMVASTATIN 40 MG TABS 1 qd SIMVASTATIN 40 MG TABS 769264 SIMVASTATIN Inactive PROZAC 20 MG CAPS 1 q d PROZAC 20 MG CAPS 31 0385 FLUOXETINE HCL Inactive DYAZIDE 37.5-25 MG CAPS 1 qd DYAZIDE 37.5 -25 MG CAPS 013970 TRIAMTERENE-HCTZ Inactive INNOPRAN XL 120 MG [id number] Take one by mouth daily 2 INNOPRAN XL 120 MG [id number] PROPRANOLOL HCL SR BEADS Inactive PROMETHAZINE HCL 25 MG TABS 1 Q. 4 hr. PRN PROMETHAZINE HCL 25 MG TABS 374759 PROMETHAZINE HCL Inactive POTASSIUM CHLORIDE 20 MEQ PACK by mouth twice a day prn POTASSIUM CHLORIDE 20 MEQ PACK 130884 POTASSIUM CHLORIDE Inactive PHENADOZ 25 MG SUPP 1 every 4 hrs. PRN PHENADOZ 2 5 MG SUPP 422838 PROMETHAZINE HCL Inactive ZOFRAN 8 MG TABS 1 tab by mouth every 12 hours prn 201 05/16/09 ZOFRAN 8 MG TABS 202417 ONDANSETRON HCL Inactive OMEPRAZOLE 20 MG CPDR 1 tablet by mouth daily for GERD OMEPRAZOLE 20 MG CPDR 896116 OMEPRAZOLE Inactive CYCLOBENZAPRINE HCL 10 MG TABS 1 tablet by mouth three times daily as needed for headaches CYCLOBENZAPRINE HCL 10 MG TABS 715744 CYCLOBENZAPRINE HCL Inactive VITAMIN D3 4000 IU 1 tab 3 times daily VITAMIN D3 4000 IU Inactive PROPRANOLOL HCL 80 MG TABS 1 tab tue. and thur. 04/10 PROPRANOLOL HCL 80 MG TABS 624711 PROPRANOLOL HCL Inactive FLAGYL 500 MG TABS 1 pill by mouth three times daily, for diarrh ea FLAGYL 500 MG TABS 521732 METRONIDAZOLE Inactive BACTRIM DS 800-160 MG TABS 1 pill by mouth twice daily, for UTI BACTRIM DS 800-160 MG TABS SULFAMETHOXAZOLE-TRIM ETHOPRIM Inactive Advance Directives Directive Description [...] Range Description blood pressure, diastolic - 8462-4 56 mm[Hg] BP dobson blood pressure, systolic - 8480-6 126 mm[Hg] BP sys pulse rate E&M - 8867-4 55 /min H eart rate temperature E&M 98.4 [degF] Body temp erature weight E&M - 3141-9 139.3 [lb_av] Weigh t Measured blood pressure, diastolic - 8462-4 64 mm[Hg] BP dobson blood pressure, systolic - 8480-6 111 mm[Hg] BP sys pulse rate E&M - 8867-4 72 /min H eart rate temperature E&M 98.5 [degF] Body temp erature weight E&M - 3141-9 128.4 [lb_av] Weigh t Measured blood pressure, diastolic - 8462-4 65 mm[Hg] BP dobson blood pressure, systolic - 8480-6 111 mm[Hg] BP sys height E&M - 8302-2 62.5 [in_us] Bdy h eight pulse rate E&M - 8867-4 66 /min H eart rate temperature E&M 97.9 [degF] Body temp erature weight E&M - 3141-9 117 [lb_av] Weigh t Measured blood pressure, diastolic - 8462-4 76 mm[Hg] BP dobson blood pressure, systolic - 8480-6 136 mm[Hg] BP sys pulse rate E&M - 8867-4 64 /min H eart rate temperature E&M 98. [degF] Body temp erature weight E&M - 3141-9 118 [lb_av] Weigh t Measured blood pressure, diastolic - 8462-4 76 mm[Hg] BP dobson blood pressure, systolic - 8480-6 124 mm[Hg] BP sys pulse rate E&M - 8867-4 80 /min H eart rate temperature E&M 98.3 [degF] Body temp erature weight E&M - 3141-9 109 [lb_av] Weigh t Measured blood pressure, diastolic - 8462-4 74 mm[Hg] BP dobson blood pressure, systolic - 8480-6 120 mm[Hg] BP sys height E&M - 8302-2 62.5 [in_us] Bdy h eight pulse rate E&M - 8867-4 91 /min H eart rate temperature E&M 99.0 [degF] Body temp erature weight E&M - 3141-9 108 [lb_av] Weigh t Measured blood pressure, diastolic - 8462-4 61 mm[Hg] BP dobson blood pressure, systolic - 8480-6 106 mm[Hg] BP sys height E&M - 8302-2 62.5 [in_us] Bdy h eight pulse rate E&M - 8867-4 77 /min H eart rate temperature E&M 99 [degF] Body temp erature weight E&M - 3141-9 113 [lb_av] Weigh t Measured Diagnostic Results Date Name Value Unit Range Description Chart Maintenance: labs added to [facility] - Chemistry magnesium, serum 2.0 mg/dL Chart Maintenance: Outside labs entered on [employer] - Chemistry sodium, serum 139 mmol/L potassium, serum 3.9 mmol/L blood glucose 85 mg/dL creatinine, serum 1.26 mg/dL aspartate aminotransferase (SGOT), serum 33 U/L alanine aminotransferase (SGPT), serum 44 U/L alkaline phosphatase, serum 127 U/L Chart Maintenance: Outside labs entered on [employer] - Hematology leukocyte count, blood 4.6 10*3/mm3 hemoglobin, blood 13.6 g/dL platelet count 162 10*3/mm3 Lab Report: Basic Metabolic Panel - Chem istry sodium, serum 136 mmol/L 475-409 0085/05/02 potassium, serum 4.1 mmol/L 3.5-5.2 chloride, serum 99 mmol/L 98-107 carbon dioxide, venous blood 30.7 mmol/L 21.0-32 .0 blood glucose 79 mg/dL 65-110 calcium, serum 8.7 mg/dL 8.5-10.1 urea nitrogen, blood 11 mg/dL 7-18 creatinine, serum 1.10 mg/dL 0.60-1.30 Lab Report: BMP - Chemistry sodium, serum 141 mmol/L potassium, serum 4.2 mmol/L blood glucose 66 mg/dL creatinine, serum 1.16 mg/dL Lab Report: [facility] - Chemistry sodium, serum 137 mmol/L potassium, serum 3.8 mmol/L blood glucose 79 mg/dL creatinine, serum 1.02 mg/dL magnesium, serum 1.2 mg/dL Lab Report: [facility] W/ DIFF[facility] CX - Hematology leukocyte count, blood 8.7 10*3/mm3 hemoglobin, blood 10.8 g/dL platelet count 319 10*3/mm3 Lab Report: CBC W/DIFF, Comp. Metabolic Panel - Chemistry sodium, serum 145 mmol/L 690-911 7609/02/02 potassium, serum 4.2 mmol/L 3.5-5.2 chloride, serum 104 mmol/L 98-107 carbon dioxide, venous blood 28.3 mmol/L 21.0-32 .0 blood glucose 93 mg/dL 65-110 urea nitrogen, blood 32 mg/dL 7-18 creatinine, serum 1.40 mg/dL 0.60-1.30 alanine aminotransferase (SGPT), serum 73 U/L - aspartate aminotransferase (SGOT), serum 42 U/L 15-37 calcium, serum 9.2 mg/dL 8.5-10.1 bilirubin, serum, total 0.40 mg/dL 0.00-1.00 sodium, serum 136 mmol/L 183-827 7361/04/03 potassium, serum 3.7 mmol/L 3.5-5.2 chloride, serum 98 mmol/L 98-107 carbon dioxide, venous blood 29.6 mmol/L 21.0-32 .0 blood glucose 95 mg/dL 65-110 urea nitrogen, blood 22 mg/dL 7-18 creatinine, serum 1.10 mg/dL 0.60-1.30 alanine aminotransferase (SGPT), serum 12 U/L aspartate aminotransferase (SGOT), serum 15 U/L 15-37 alkaline phosphatase, serum 105 U/L 50-136 calcium, serum 8.4 mg/dL 8.5-10.1 bilirubin, serum, total 0.40 mg/dL 0.00-1.00 sodium, serum 138 mmol/L 254-330 2372/08/14 potassium, serum 4.0 mmol/L 3.5-5.2 chloride, serum 100 mmol/L 98-107 carbon dioxide, venous blood 28.7 mmol/L 21.0-32 .0 blood glucose 87 mg/dL 65-110 urea nitrogen, blood 25 mg/dL 7-18 creatinine, serum 1.20 mg/dL 0.60-1.30 alanine aminotransferase (SGPT), serum 38 U/L aspartate aminotransferase (SGOT), serum 32 U/L 15-37 alkaline phosphatase, serum 198 U/L 50-136 calcium, serum 9.8 mg/dL 8.5-10.1 bilirubin, serum, total 0.40 mg/dL 0.00-1.00 Lab Report: CBC W/DIFF, Comp. Metabolic Panel - Hematology leukocyte count, blood 5.8 10^3/MM^3 10*3/mm3 4.6-10.2 neutrophils as percent of blood leukocytes 52.7 % 42.2-75.2 monocytes as percent of blood leukocytes 7.5 % 1.7-9.3 lymphocytes as percent of blood leukocytes 35.8 % 20.5-51.1 erythrocyte (RBC) count 3.79 10^6/MM^3 10*6/mm3 4.04-5.4 8 hemoglobin, blood 13.4 g/dL 12.0-16.0 hematocrit, blood 39.5 % 36.0-46.0 mean corpuscular volume, RBC 104 fL 80-97 mean corpuscular hemoglobin, RBC 35.5 pg 27. 0-31.2 mean corpuscular hemoglobin concentration, RBC 34.0 G/DL % 31.8-35.4 red blood cell distribution width 12.5 % 11 .6-14.8 platelet count 193 10^3/MM^3 10*3/mm3 423-851 2395/04/03 hemoglobin, blood 8.7 g/dL 12.0-16.0 hematocrit, blood 26.1 % 36.0-46.0 mean corpuscular volume, RBC 106 fL 80-97 mean corpuscular hemoglobin, RBC 35.4 pg 27. 0-31.2 mean corpuscular hemoglobin concentration, RBC 33.3 G/DL % 31.8-35.4 red blood cell distribution width 15.4 % 11 .6-14.8 platelet count 246 10^3/MM^3 10*3/mm3 747-917 9550/04/03 erythrocyte (RBC) count 2.46 10^6/MM^3 10*6/mm3 4.04-5.4 8 lymphocytes as percent of blood leukocytes 21.8 % 20.5-51.1 monocytes as percent of blood leukocytes 9.5 % 1.7-9.3 neutrophils as percent of blood leukocytes 66.6 % 42.2-75.2 leukocyte count, blood 5.6 10^3/MM^3 10*3/mm3 4.6-10.2 leukocyte count, blood 5.1 10^3/MM^3 10*3/mm3 4.6-10.2 neutrophils as percent of blood leukocytes 55.7 % 42.2-75.2 monocytes as percent of blood leukocytes 6.4 % 1.7-9.3 lymphocytes as percent of blood leukocytes 33.3 % 20.5-51.1 erythrocyte (RBC) count 4.54 10^6/MM^3 10*6/mm3 4.04-5.4 8 hemoglobin, blood 15.5 g/dL 12.0-16.0 hematocrit, blood 46.0 % 36.0-46.0 mean corpuscular volume, RBC 101 fL 80-97 mean corpuscular hemoglobin, RBC 34.1 pg 27. 0-31.2 mean corpuscular hemoglobin concentration, RBC 33.7 G/DL % 31.8-35.4 red blood cell distribution width 13.6 % 11 .6-14.8 platelet count 155 10^3/MM^3 10*3/mm3 142-424 Lab Report: CEA - Serology carcinoembryonic antigen 1.3 ng/mL carcinoembryonic antigen 0.7 ng/mL carcinoembryonic antigen 0.9 ng/mL Lab Report: cmp - Chemistry sodium, serum 142 mmol/L potassium, serum 4.0 mmol/L blood glucose 115 mg/dL creatinine, serum 1.24 mg/dL Lab Report: Hemoglobin - Hematology hemoglobin, blood 11.2 g/dL 12.0-16.0 Lab Report: Lipid Panel - Chemistry cholesterol, serum 209 mg/dL 840-467 4172/09/11 triglyceride, serum, fasting 113 mg/dL 30-200 HDL cholesterol, serum 50 mg/dL 32-96 LDL cholesterol, serum 136 mg/dL 0-130 Lab Report: UADIP W/MICRO, AUTO - Chemis try protein, total urine random Trace mg/dL Negative RBC, urine, dipstick Trace Negative Lab Report: UADIP W/MICRO, AUTO - Urinal ysis urobilinogen, urine, semiquantitative (dipstick) 0.2 Normal leukocyte esterase, urine, by dipstick 1+ Negative nitrite, urine, semiquantitative Negative Neg ative glucose, urine, semiquantitative Negative Neg ative ketones, urine, by test strip Negative Negati ve bilirubin, urine Negative Negative urine color Yellow Colorless;Lightyellow;St raw;Yellow appearance, urine SlCloudy Clear specific gravity, urine 1.020 1.000-1.030 pH, urine, semiquantitative 7.0 5.0-8.5 Lab Report: VITAMIN D, 25-HYDROXY/81259, MAGNESIUM/622 - Chemistry vitamin D 25-hydroxy, serum 41 ng/mL 30-100 Encounters Code Encounter Date Provider Facility CPT-56225 Level 4 Est. Patient 12:08:30 RN BSN Hope cohn MD PhD [facility] CPT-76320 Level 4 Est. Patient 19:08:42 RN BSN Hope cohn MD PhD [facility] CPT-87439 Level 4 Est. Patient 20:04:51 CDT Hope cohn MD PhD [facility] CPT-74279 Level 3 New Patient 01:46:11 RN BSN Hope landers MD PhD [facility] Procedures Code Procedure Name Date Entry Date Standard Desc ription CPT-J3420 Vitamin B12 1000mcg (Cyanocobalamin) 09:26:20 RN BSN CPT-15008 Abx/Therapy Injection 09:26:20 RN BSN CPT-J3420 Vitamin B12 1000mcg (Cyanocobalamin) 09:44:40 RN BSN CPT-86684 Abx/Therapy Injection 09:44:40 RN BSN CPT-J3420 Vitamin B12 1000mcg (Cyanocobalamin) 09:15:54 RN BSN CPT-08042 Abx/Therapy Injection 09:15:54 RN BSN CPT-J3420 Vitamin B12 1000mcg (Cyanocobalamin) 09:46:44 RN BSN CPT-48225 Abx/Therapy Injection 09:46:44 RN BSN CPT-J3420 Vitamin B12 1000mcg (Cyanocobalamin) 09:47:34 RN BSN CPT-00496 Abx/Therapy Injection 09:47:34 RN BSN CPT-J3420 Vitamin B12 1000mcg (Cyanocobalamin) 14:35:50 RN BSN CPT-J3420 Vitamin B12 1000mcg (Cyanocobalamin) 09:25:05 RN BSN CPT-44887 Abx/Therapy Injection 09:25:05 RN BSN CPT-G0008 Administration of Influenza Virus Vaccine 13:36:47 CDT CPT-54967 Fluzone High-Dose Intramuscular Suspension 11/15 13:36:47 CDT CPT-J0897 Prolia 60 mg 08:50:41 CDT CPT-18057 Abx/Therapy Injection 08:50:41 CDT CPT-77215 Bone Density 12:06:12 CDT CPT-36286 Bone Density 08:54:40 CDT CPT-OV Office Visit 15:37:02 CDT CPT-15574 Postop F/U Visit 15:47:49 CDT CPT-48265 Postop F/U Visit 15:21:02 CDT CPT-TCMH Transitional Care Mgmt-High 07:52:27 CDT 20 20/06/01 CPT-50866 Venipuncture Draw Fee 13:51:18 CDT CPT-91442 Venipuncture Draw Fee 10:14:55 RN BSN CPT-10006 Venipuncture Draw Fee 13:39:45 RN BSN CPT-OV Office Visit 15:11:22 RN BSN CPT-41263 Venipuncture Draw Fee 09:20:49 RN BSN CPT-65248 Venipuncture Draw Fee 16:52:15 RN BSN CPT-50779 Venipuncture Draw Fee 10:37:24 RN BSN CPT-31416 Venipuncture Draw Fee 08:21:21 RN BSN CPT-24745 Venipuncture Draw Fee 08:30:20 RN BSN CPT-18985 Venipuncture Draw Fee 14:53:21 RN BSN CPT-30197 Venipuncture Draw Fee 09:40:56 RN BSN CPT-83679 Venipuncture Draw Fee 10:30:47 RN BSN CPT-60526 Venipuncture Draw Fee 10:46:17 RN BSN CPT-68136 Venipuncture Draw Fee 11:12:45 RN BSN CPT-03946 Venipuncture Draw Fee 09:53:33 RN BSN CPT-72284 Venipuncture Draw Fee 11:53:51 RN BSN CPT-61415 Venipuncture Draw Fee 10:33:50 RN BSN CPT-75094 Venipuncture Draw Fee 10:05:01 RN BSN CPT-47783 Venipuncture Draw Fee 14:32:52 RN BSN CPT-41500 Venipuncture Draw Fee 09:46:13 RN BSN CPT-79094 Venipuncture Draw Fee 11:34:27 RN BSN CPT-34431 Venipuncture Draw Fee 13:17:16 RN BSN CPT-93261 Venipuncture Draw Fee 12:05:39 CDT CPT-05745 Venipuncture Draw Fee 12:49:12 CDT CPT-64109 Venipuncture Draw Fee 12:37:18 CDT CPT-92154 Venipuncture Draw Fee 10:57:11 CDT CPT-75424 Venipuncture Draw Fee 13:47:40 CDT CPT-27579 Venipuncture Draw Fee 10:02:17 CDT CPT-68663 TB Tubersol 17:32:32 CDT CPT-OV Office Visit 16:21:53 CDT CPT-OV Office Visit 15:49:22 CDT CPT-OV Office Visit 17:16:31 CDT CPT-OV Office Visit 10:43:31 CDT
--- OUTSIDE RECORDS SUMMARY | 2019-02-09 12:19 | XMS REPORT | Clinical Summary ---
Author Author Florecita Macario Organization [facility] Address Unknown Phone Unavailable Allergies, Adverse Reactions, [...] cohn MD PhD UNSPECIFIED VENOUS INSUFFICIENCY ICD-459.81 [place] ctive Adam Yates MD ADENOCARCINOMA, ASCENDING [...] tab tue. and thur. 04/10 PROPRANOLOL HCL [id number] No Longer Active Hope Benavidez MD PhD A ctive IRON 325 (65 FE) MG TABS 1 every other day FERROUS SULFATE 01537111277 Active Hope Benavidez MD PhD Active VITAMIN D3 4000 IU 1 tab 3 times daily VITAMIN D3 4000 IU No Longer Active Hope Benavidez MD PhD Active CYANOCOBALAMIN 1000 MCG/ML INJ SOLN 1 injection every 2 weeks 01/09 CYANOCOBALAMIN 93620759498 Active Laura Elder Active BACTRIM DS 800-160 MG TABS 1 pill by mouth twice daily, for UTI SULFAMETHOXAZOLE-TRIMETHOPRIM 06411205855 No Longer Active A attila Benavidez MD PhD Active PROLIA 60 MG/ML SOLN 1 shot every 6 months for osteoprosis DENOSUMAB 54028486558 Active Hope Benavidez MD PhD Active CALCIUM + D + K 750-500-40 MG-UNT-MCG TABS 1 tab by mouth tw ice daily CALCIUM-VITAMIN D-VITAMIN K 84456308386 Active Hope landers MD PhD Active DAILY VALUE MULTIVITAMIN TABS 1 tab by mouth twice daily MULTIPLE VITAMIN 44563296914 Active Hope Benavidez MD PhD Active FISH OIL 306 MG CAPS 1 tab by mouth three times daily OMEGA-3 FATTY ACIDS 99826088931 Active Hope Benavidez MD PhD Active LUTEIN 10 MG TABS 1 tab daily LUTEIN 73841053133 Act cash Hope Benavidez MD PhD Active FLORANEX PACK 1 pack three times daily, for bowel health LACTOBACILLUS 46807758646 Active Hope Benavidez MD PhD Active LOMOTIL 2.5-0.025 MG TABS 1 tab by mouth prn DIPHENOXYLATE-ATROPINE 53935638195 Active Hope Benavidez MD PhD Active TRIAMTERENE-HCTZ 37.5-25 MG TABS 1 tab by mouth daily TRIAMTERENE-HCTZ 81721736644 Active Hope Benavidez MD PhD Acti ve MAGNESIUM GLUCONATE 250 MG TABS 1 tab tid MAGN ESIUM GLUCONATE 71057872285 Active Adam Yates MD Active ATENOLOL 50 MG TABS 1/2 tab q other day m-w-f ATE NOLOL 28806056209 Active Hope Benavidez MD PhD Active CYCLOBENZAPRINE HCL 10 MG TABS 1 tablet by mouth three times daily as needed for headaches CYCLOBENZAPRINE HCL 57930418796 No Longe r Active Adam Yates MD Active OMEPRAZOLE 20 MG CPDR 1 tablet by mouth daily for GERD OMEPRAZOLE 77417537463 No Longer Active Adam Yates MD A ctive ZOFRAN 8 MG TABS 1 tab by mouth every 12 hours prn 201 05/16/09 ONDANSETRON HCL 64550377552 No Longer Active Adam Yates MD Active PHENADOZ 25 MG SUPP 1 every 4 hrs. PRN PROMETHA ZINE HCL 86317784008 No Longer Active Adam Yates MD Active POTASSIUM CHLORIDE 20 MEQ PACK by mouth twice a day prn POTASSIUM CHLORIDE 99736853555 No Longer Active Adam Yates MD Active PROMETHAZINE HCL 25 MG TABS 1 Q. 4 hr. PRN PROM ETHAZINE HCL 90300286483 No Longer Active Adam Yates MD Active INNOPRAN XL 120 MG [id number] Take one by mouth daily 2 PROPRANOLOL HCL SR BEADS 09928993717 No Longer Active Adam Yates MD A ctive FLAGYL 500 MG TABS 1 pill by mouth three times daily, for diarrh ea METRONIDAZOLE 54455666722 No Longer Active Hope Benavidez MD PhD Active DYAZIDE 37.5-25 MG CAPS 1 qd TRIAMTERENE-HC TZ 56727040837 No Longer Active Hope Benavidez MD PhD Active PROZAC 20 MG CAPS 1 q d FLUOXETINE HCL 96259 671820 No Longer Active Hope Benavidez MD PhD Active SIMVASTATIN 40 MG TABS 1 qd SIMVASTATIN 004 72488602 No Longer Active Adam Yates MD Active MELOXICAM 15 MG TABS 1 qd MELOXICAM 6302351 3205 No Longer Active Adam Yates MD Active IMODIUM A-D 2 MG TABS 2 onset at diarrhea and prn. LOPERAMIDE HCL 81803688681 Active Hope Benavidez MD PhD Active EXCEDRIN EXTRA STRENGTH 250-250-65 MG TABS 1-2 q6h PRN headache 201 04/16/21 PTHRYQZ-NULUMHORFITTU-EOBEGTAE 96452778398 Active Hope Benavidez MD PhD Active FLAGYL 500 MG TABS 1 qid METRONIDAZOLE 72568 106913 No Longer Active Adam Yates MD Active LEVAQUIN 750 MG TABS 1 qd LEVOFLOXACIN 5486 4669328 No Longer Active Adam Yates MD Active ADULT ASPIRIN LOW STRENGTH 81 MG TBDP 1 qd A SPIRIN 37829350148 Active Hope Benavidez MD PhD Active LEVAQUIN 750 MG TABS 1 qd LEVAQUIN 750 MG T ABS 090989 LEVOFLOXACIN Inactive FLAGYL 500 MG TABS 1 qid FLAGYL 500 MG TABS 781740 METRONIDAZOLE Inactive MELOXICAM 15 MG TABS 1 qd MELOXICAM 15 MG T ABS 363135 MELOXICAM Inactive SIMVASTATIN 40 MG TABS 1 qd SIMVASTATIN 40 MG TABS 231183 SIMVASTATIN Inactive PROZAC 20 MG CAPS 1 q d PROZAC 20 MG CAPS 31 0385 FLUOXETINE HCL Inactive DYAZIDE 37.5-25 MG CAPS 1 qd DYAZIDE 37.5 -25 MG CAPS 947881 TRIAMTERENE-HCTZ Inactive INNOPRAN XL 120 MG [id number] Take one by mouth daily 2 INNOPRAN XL 120 MG [id number] PROPRANOLOL HCL SR BEADS Inactive PROMETHAZINE HCL 25 MG TABS 1 Q. 4 hr. PRN PROMETHAZINE HCL 25 MG TABS 757209 PROMETHAZINE HCL Inactive POTASSIUM CHLORIDE 20 MEQ PACK by mouth twice a day prn POTASSIUM CHLORIDE 20 MEQ PACK 778939 POTASSIUM CHLORIDE Inactive PHENADOZ 25 MG SUPP 1 every 4 hrs. PRN PHENADOZ 2 5 MG SUPP 627020 PROMETHAZINE HCL Inactive ZOFRAN 8 MG TABS 1 tab by mouth every 12 hours prn 201 05/16/09 ZOFRAN 8 MG TABS 161754 ONDANSETRON HCL Inactive OMEPRAZOLE 20 MG CPDR 1 tablet by mouth daily for GERD OMEPRAZOLE 20 MG CPDR 538104 OMEPRAZOLE Inactive CYCLOBENZAPRINE HCL 10 MG TABS 1 tablet by mouth three times daily as needed for headaches CYCLOBENZAPRINE HCL 10 MG TABS 516464 CYCLOBENZAPRINE HCL Inactive VITAMIN D3 4000 IU 1 tab 3 times daily VITAMIN D3 4000 IU Inactive PROPRANOLOL HCL 80 MG TABS 1 tab tue. and thur. 04/10 PROPRANOLOL HCL 80 MG TABS 951847 PROPRANOLOL HCL Inactive FLAGYL 500 MG TABS 1 pill by mouth three times daily, for diarrh ea FLAGYL 500 MG TABS 893349 METRONIDAZOLE Inactive BACTRIM DS 800-160 MG TABS [...] Range Description Chart Maintenance: labs added to [facility] - Chemistry magnesium, serum 2.0 mg/dL Chart Maintenance: Outside labs entered on [facility] - Chemistry sodium, serum 139 mmol/L potassium, serum 3.9 mmol/L blood glucose 85 mg/dL creatinine, serum 1.26 mg/dL aspartate aminotransferase (SGOT), serum 33 U/L alanine aminotransferase (SGPT), serum 44 U/L alkaline phosphatase, serum 127 U/L Chart Maintenance: Outside labs entered on [facility] - Hematology leukocyte count, blood 4.6 10*3/mm3 hemoglobin, blood 13.6 g/dL platelet count 162 10*3/mm3 Lab Report: Basic Metabolic Panel - Chem istry sodium, serum 136 mmol/L 218-147 1250/05/02 potassium, serum 4.1 mmol/L 3.5-5.2 chloride, serum [...] 1.16 mg/dL Lab Report: [facility] - Chemistry sodium, serum 137 mmol/L potassium, serum 3.8 mmol/L blood glucose 79 mg/dL creatinine, serum 1.02 mg/dL magnesium, serum 1.2 mg/dL Lab Report: [facility]/ [facility]FF[facility] - Hematology leukocyte count, blood 8.7 10*3/mm3 hemoglobin, blood 10.8 g/dL platelet count 319 10*3/mm3 Lab Report: CBC W/DIFF, Comp. Metabolic Panel - Chemistry sodium, serum 138 mmol/L 501-551 3267/08/14 potassium, serum 4.0 mmol/L 3.5-5.2 chloride, serum 100 mmol/L 98-107 carbon dioxide, venous blood 28.7 mmol/L 21.0-32 .0 blood glucose 87 mg/dL 65-110 urea nitrogen, blood 25 mg/dL 7-18 creatinine, serum 1.20 mg/dL 0.60-1.30 alanine aminotransferase (SGPT), serum 38 U/L 12-78 aspartate aminotransferase (SGOT), serum 32 U/L 15-37 alkaline phosphatase, serum 198 U/L 50-136 calcium, serum 9.8 mg/dL 8.5-10.1 bilirubin, serum, total 0.40 mg/dL 0.00-1.00 sodium, serum 136 mmol/L 967-732 1465/04/03 potassium, serum 3.7 mmol/L 3.5-5.2 chloride, serum 98 mmol/L 98-107 carbon dioxide, venous blood 29.6 mmol/L 21.0-32 .0 blood glucose 95 mg/dL 65-110 urea nitrogen, blood 22 mg/dL 7-18 creatinine, serum 1.10 mg/dL 0.60-1.30 alanine aminotransferase (SGPT), serum 12 U/L - aspartate aminotransferase (SGOT), serum 15 U/L 15-37 alkaline phosphatase, serum 105 U/L 50-136 calcium, serum 8.4 mg/dL 8.5-10.1 bilirubin, serum, total 0.40 mg/dL 0.00-1.00 sodium, serum 145 mmol/L 350-071 4822/02/02 potassium, serum 4.2 mmol/L 3.5-5.2 chloride, serum 104 mmol/L 98-107 carbon dioxide, venous blood 28.3 mmol/L 21.0-32 .0 blood glucose 93 mg/dL 65-110 urea nitrogen, blood 32 mg/dL 7-18 creatinine, serum 1.40 mg/dL 0.60-1.30 alanine aminotransferase (SGPT), serum 73 U/L -78 aspartate aminotransferase (SGOT), serum 42 U/L 15-37 calcium, serum 9.2 mg/dL 8.5-10.1 bilirubin, serum, total 0.40 mg/dL 0.00-1.00 Lab Report: CBC W/DIFF, Comp. Metabolic Panel - Hematology leukocyte count, blood 5.1 10^3/MM^3 10*3/mm3 4.6-10.2 [...] 11 .6-14.8 platelet count 155 10^3/MM^3 10*3/mm3 985-592 8905/04/03 leukocyte count, blood 5.6 10^3/MM^3 10*3/mm3 4.6-10.2 neutrophils as percent of blood leukocytes 66.6 % 42.2-75.2 monocytes as percent of blood leukocytes 9.5 % 1.7-9.3 lymphocytes as percent of blood leukocytes 21.8 % 20.5-51.1 erythrocyte (RBC) count 2.46 10^6/MM^3 10*6/mm3 4.04-5.4 8 hemoglobin, blood 8.7 g/dL 12.0-16.0 hematocrit, blood 26.1 % 36.0-46.0 mean corpuscular volume, RBC 106 fL 80-97 mean corpuscular hemoglobin, RBC 35.4 pg 27. 0-31.2 mean corpuscular hemoglobin concentration, RBC 33.3 G/DL % 31.8-35.4 red blood cell distribution width 15.4 % 11 .6-14.8 platelet count 246 10^3/MM^3 10*3/mm3 956-772 8844/08/14 leukocyte count, blood 5.8 10^3/MM^3 10*3/mm3 4.6-10.2 [...] 11 .6-14.8 platelet count 193 10^3/MM^3 10*3/mm3 142-424 Lab Report: CEA - Serology carcinoembryonic antigen 0.7 ng/mL carcinoembryonic antigen 0.9 ng/mL carcinoembryonic antigen 1.3 ng/mL Lab Report: cmp - Chemistry sodium, serum 142 mmol/L potassium, serum 4.0 mmol/L blood glucose 115 mg/dL creatinine, serum 1.24 mg/dL Lab Report: Hemoglobin - Hematology hemoglobin, blood 11.2 g/dL 12.0-16.0 Lab Report: Lipid Panel - Chemistry cholesterol, serum 209 mg/dL 318-965 1796/09/11 triglyceride, serum, fasting 113 mg/dL 30-200 HDL [...] semiquantitative 7.0 5.0-8.5 Lab Report: VITAMIN D, 25-HYDROXY/47949, MAGNESIUM/622 - Chemistry vitamin D 25-hydroxy, serum 41 ng/mL 30-100 Encounters Code Encounter Date Provider Facility CPT-43228 Level 4 Est. Patient 12:08:30 [employer] Hope cohn MD PhD [facility] CPT-13145 Level 4 Est. Patient 19:08:42 [employer] Hope cohn MD PhD [facility] CPT-52716 Level 4 Est. Patient 20:04:51 CDT Hope cohn MD PhD [facility] CPT-45698 Level 3 New Patient 01:46:11 [employer] Hope landers MD PhD [facility] Procedures Code Procedure Name Date Entry Date Standard Desc ription CPT-J3420 Vitamin B12 1000mcg (Cyanocobalamin) 09:26:20 [employer] CPT-36045 Abx/Therapy Injection 09:26:20 [employer] CPT-J3420 Vitamin B12 1000mcg (Cyanocobalamin) 09:44:40 [employer] CPT-02591 Abx/Therapy Injection 09:44:40 [employer] CPT-J3420 Vitamin B12 1000mcg (Cyanocobalamin) 09:15:54 [employer] CPT-72432 Abx/Therapy Injection 09:15:54 [employer] CPT-J3420 Vitamin B12 1000mcg (Cyanocobalamin) 09:46:44 [employer] CPT-37931 Abx/Therapy Injection 09:46:44 [employer] CPT-J3420 Vitamin B12 1000mcg (Cyanocobalamin) 09:47:34 [employer] CPT-54680 Abx/Therapy Injection 09:47:34 [employer] CPT-J3420 Vitamin B12 1000mcg (Cyanocobalamin) 14:35:50 [employer] CPT-J3420 Vitamin B12 1000mcg (Cyanocobalamin) 09:25:05 [employer] CPT-30886 Abx/Therapy Injection 09:25:05 [employer] CPT-G0008 Administration of Influenza Virus Vaccine 13:36:47 CDT CPT-41463 Fluzone High-Dose Intramuscular Suspension 11/15 13:36:47 CDT CPT-J0897 Prolia 60 mg 08:50:41 CDT CPT-14365 Abx/Therapy Injection 08:50:41 CDT CPT-40728 Bone Density 12:06:12 CDT CPT-94378 Bone Density 08:54:40 CDT CPT-OV Office Visit 15:37:02 CDT CPT-96403 Postop F/U Visit 15:47:49 CDT CPT-44580 Postop F/U Visit 15:21:02 CDT CPT-TCMH Transitional Care Mgmt-High 07:52:27 CDT 20 20/06/01 CPT-42909 Venipuncture Draw Fee 13:51:18 CDT CPT-18953 Venipuncture Draw Fee 10:14:55 [employer] CPT-79122 Venipuncture Draw Fee 13:39:45 [employer] CPT-OV Office Visit 15:11:22 [employer] CPT-44157 Venipuncture Draw Fee 09:20:49 [employer] CPT-72401 Venipuncture Draw Fee 16:52:15 [employer] CPT-20436 Venipuncture Draw Fee 10:37:24 [employer] CPT-55278 Venipuncture Draw Fee 08:21:21 [employer] CPT-62882 Venipuncture Draw Fee 08:30:20 [employer] CPT-90501 Venipuncture Draw Fee 14:53:21 [employer] CPT-35638 Venipuncture Draw Fee 09:40:56 [employer] CPT-79283 Venipuncture Draw Fee 10:30:47 [employer] CPT-73715 Venipuncture Draw Fee 10:46:17 [employer] CPT-90649 Venipuncture Draw Fee 11:12:45 [employer] CPT-53868 Venipuncture Draw Fee 09:53:33 [employer] CPT-73094 Venipuncture Draw Fee 11:53:51 [employer] CPT-75547 Venipuncture Draw Fee 10:33:50 [employer] CPT-21439 Venipuncture Draw Fee 10:05:01 [employer] CPT-82672 Venipuncture Draw Fee 14:32:52 [employer] CPT-62626 Venipuncture Draw Fee 09:46:13 [employer] CPT-48679 Venipuncture Draw Fee 11:34:27 [employer] CPT-88318 Venipuncture Draw Fee 13:17:16 [employer] CPT-29732 Venipuncture Draw Fee 12:05:39 CDT CPT-73546 Venipuncture Draw Fee 12:49:12 CDT CPT-48003 Venipuncture Draw Fee 12:37:18 CDT CPT-45748 Venipuncture Draw Fee 10:57:11 CDT CPT-38604 Venipuncture Draw Fee 13:47:40 CDT CPT-89061 Venipuncture Draw Fee 10:02:17 CDT CPT-08778 TB Tubersol 17:32:32 CDT CPT-OV Office Visit 16:21:53 CDT CPT-OV Office Visit 15:49:22 CDT CPT-OV Office Visit 17:16:31 CDT CPT-OV Office Visit 10:43:31 CDT
--- OUTSIDE RECORDS SUMMARY | 2019-02-09 12:19 | XMS REPORT | Clinical Summary ---
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 Active Kylie MORENON Functional diarrhea Osteoporosis 733.00 Active Hope Benavidez [...] Sebaceous cyst, scalp 706.2 Resolved Kylie Holt [employer] Sebaceous cyst Cervical lymphadenopathy, anterior, left 785.6 Active Kylie Holt [employer] Enlargement of lymph nodes Need for prophylactic vaccination and inoculation against in fluenza V04.81 Active Citlaly Watkins RMA Need for prophylactic vaccination and inoculation against influenza ABDOMINAL PAIN, RIGHT LOWER QUADRANT ICD-789.03 Inactive Kina Joshua [employer] ADENOCARCINOMA, COLON, 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 Dick Yates MD ABDOMINAL PAIN, GENERALIZED ICD-789.07 Inactive Hope Benavidez MD PhD FEVER UNSPECIFIED ICD-780.60 Inactive Hope cohn MD PhD UNSPECIFIED VENOUS INSUFFICIENCY ICD-459.81 [place] ctive Adam Yates MD ADENOCARCINOMA, ASCENDING COLON [...] Sebaceous cyst, scalp ICD-706.2 Inactive Tracy Holt [employer] Medication List Medication Instructions Start Date Stop Date Generic Name NDC Status Provider Patient Instruction LOMOTIL 2.5-0.025 MG TABS 1 tab by mouth prn 4 DIPHENOXYLATE-ATROPINE 91468311375 No Longer Active Kylie Escalonakum [employer] Active MAGNESIUM GLUCONATE 250 MG TABS 1 tab tid 4 MAGNESIUM GLUCONATE 52901417804 No Longer Active Kylie Escalonakum [employer] Active CYANOCOBALAMIN 1000 MCG/ML INJ SOLN 1 injection every 2 weeks 20 20/01/03 CYANOCOBALAMIN 96356227622 No Longer Active Kylie Lundum [employer] Active ATENOLOL 25 MG ORAL TABS 1/2 pill by mouth daily, for headac hes, blood pressure ATENOLOL 02475328226 Active Hope Benavidez MD PhD Active PROPRANOLOL HCL 80 MG TABS 1 tab tue. and thur. 04/10 PROPRANOLOL HCL 18924625706 No Longer Active Hope Benavidez MD PhD A ctive IRON 325 (65 FE) MG TABS 1 every other day FERROUS SULFATE 02139757272 Active Hope Benavidez MD PhD Active VITAMIN D3 4000 IU 1 tab 3 times daily VITAMIN D3 4000 IU No Longer Active Hope Benavidez MD PhD Active BACTRIM DS 800-160 MG TABS 1 pill by mouth twice daily, for UTI SULFAMETHOXAZOLE-TRIMETHOPRIM 18493786592 No Longer Active Lisa Benavidez MD PhD Active PROLIA 60 MG/ML SOLN 1 shot every 6 months for osteoprosis DENOSUMAB 94296496762 Active Hope Benavidez MD PhD Active CALCIUM + D + K 750-500-40 MG-UNT-MCG TABS 1 tab by mouth tw ice daily CALCIUM-VITAMIN D-VITAMIN K 47626964904 Active Hope landers MD PhD Active DAILY VALUE MULTIVITAMIN TABS 1 tab by mouth twice daily MULTIPLE VITAMIN 01952786863 Active Hope Benavidez MD PhD Active FISH OIL 306 MG CAPS 1 tab by mouth three times daily OMEGA-3 FATTY ACIDS 70008147258 Active oHpe Benavidez MD PhD Active LUTEIN 10 MG TABS 1 tab daily LUTEIN 47304499911 Act cash Hope Benavidez MD PhD Active FLORANEX PACK 1 pack three times daily, for bowel health LACTOBACILLUS 98947086629 Active Hope Benavidez MD PhD Active TRIAMTERENE-HCTZ 37.5-25 MG TABS 1 tab by mouth daily TRIAMTERENE-HCTZ 99715101381 Active Kylie Holt [employer] Active CYCLOBENZAPRINE HCL 10 MG TABS 1 tablet by mouth three times daily as needed for headaches CYCLOBENZAPRINE HCL 65771478777 No Longe r Active Adam Yates MD Active OMEPRAZOLE 20 MG CPDR 1 tablet by mouth daily for GERD OMEPRAZOLE 39801771301 No Longer Active Adam Yates MD A ctive ZOFRAN 8 MG TABS 1 tab by mouth every 12 hours prn 201 05/16/09 ONDANSETRON HCL 61359443713 No Longer Active Adam Yates MD Active PHENADOZ 25 MG SUPP 1 every 4 hrs. PRN PROMETHA ZINE HCL 64483419715 No Longer Active Adam Yates MD Active POTASSIUM CHLORIDE 20 MEQ PACK by mouth twice a day prn POTASSIUM CHLORIDE 93244344834 No Longer Active Adam Yates MD Active PROMETHAZINE HCL 25 MG TABS 1 Q. 4 hr. PRN PROM ETHAZINE HCL 59779352375 No Longer Active Adam Yates MD Active INNOPRAN XL 120 MG [id number] Take one by mouth daily 2 PROPRANOLOL HCL SR BEADS 77913713023 No Longer Active Adam Yates MD A ctive FLAGYL 500 MG TABS 1 pill by mouth three times daily, for diarrh ea METRONIDAZOLE 34921088730 No Longer Active Hope Benavidez MD PhD Active DYAZIDE 37.5-25 MG CAPS 1 qd TRIAMTERENE-HC TZ 05403562241 No Longer Active Hope Benavidez MD PhD Active PROZAC 20 MG CAPS 1 q d FLUOXETINE HCL 03082 734509 No Longer Active Hope Benavidez MD PhD Active SIMVASTATIN 40 MG TABS 1 qd SIMVASTATIN 004 01977448 No Longer Active Adam Yates MD Active MELOXICAM 15 MG TABS 1 qd MELOXICAM 3424562 6891 No Longer Active Adam Yates MD Active IMODIUM A-D 2 MG TABS 2 onset at diarrhea and prn. LOPERAMIDE HCL 34986574307 Active Hope Benavidez MD PhD Active EXCEDRIN EXTRA STRENGTH 250-250-65 MG TABS 1-2 q6h PRN headache 201 04/16/21 [id number] 54982804742 Active Hope Benavidez MD PhD Active FLAGYL 500 MG TABS 1 qid METRONIDAZOLE 35092 334911 No Longer Active Adam Yates MD Active LEVAQUIN 750 MG TABS 1 qd LEVOFLOXACIN 5486 6481137 No Longer Active Adam Yates MD Active ADULT ASPIRIN LOW STRENGTH 81 MG TBDP 1 qd A SPIRIN 14344649415 Active Hope Benavidez MD PhD Active LEVAQUIN 750 MG TABS 1 qd LEVAQUIN 750 MG T ABS 860947 LEVOFLOXACIN Inactive FLAGYL 500 MG TABS 1 qid FLAGYL 500 MG TABS 456313 METRONIDAZOLE Inactive MELOXICAM 15 MG TABS 1 qd MELOXICAM 15 MG T ABS 817613 MELOXICAM Inactive SIMVASTATIN 40 MG TABS 1 qd SIMVASTATIN 40 MG TABS 285149 SIMVASTATIN Inactive PROZAC 20 MG CAPS 1 q d PROZAC 20 MG CAPS 31 0385 FLUOXETINE HCL Inactive DYAZIDE 37.5-25 MG CAPS 1 qd DYAZIDE 37.5 -25 MG CAPS 059258 TRIAMTERENE-HCTZ Inactive INNOPRAN XL 120 MG [id number] Take one by mouth daily 2 INNOPRAN XL 120 MG [id number] PROPRANOLOL HCL SR BEADS Inactive PROMETHAZINE HCL 25 MG TABS 1 Q. 4 hr. PRN PROMETHAZINE HCL 25 MG TABS 474416 PROMETHAZINE HCL Inactive POTASSIUM CHLORIDE 20 MEQ PACK by mouth twice a day prn POTASSIUM CHLORIDE 20 MEQ PACK 882275 POTASSIUM CHLORIDE Inactive PHENADOZ 25 MG SUPP 1 every 4 hrs. PRN PHENADOZ 2 5 MG SUPP 468786 PROMETHAZINE HCL Inactive ZOFRAN 8 MG TABS 1 tab by mouth every 12 hours prn 201 05/16/09 ZOFRAN 8 MG TABS 245616 ONDANSETRON HCL Inactive OMEPRAZOLE 20 MG CPDR 1 tablet by mouth daily for GERD OMEPRAZOLE 20 MG CPDR 975858 OMEPRAZOLE Inactive CYCLOBENZAPRINE HCL 10 MG TABS 1 tablet by mouth three times daily as needed for headaches CYCLOBENZAPRINE HCL 10 MG TABS 384133 CYCLOBENZAPRINE HCL Inactive VITAMIN D3 4000 IU 1 tab 3 times daily VITAMIN D3 4000 IU Inactive PROPRANOLOL HCL 80 MG TABS 1 tab tue. and thur. 04/10 PROPRANOLOL HCL 80 MG TABS 843695 PROPRANOLOL HCL Inactive CYANOCOBALAMIN 1000 MCG/ML INJ SOLN 1 injection every 2 weeks 20 20/01/03 CYANOCOBALAMIN 1000 MCG/ML INJ SOLN 271561 CYANOCOBALAM IN Inactive MAGNESIUM GLUCONATE 250 MG TABS 1 tab tid 4 MAGNESIUM GLUCONATE 250 MG TABS 892969 MAGNESIUM GLUCONATE Inactive LOMOTIL 2.5-0.025 MG TABS 1 tab by mouth prn 4 LOMOTIL 2.5- 0.025 MG TABS 4205856 DIPHENOXYLATE-ATROPINE Inactive FLAGYL 500 MG TABS 1 pill by mouth three times daily, for diarrh ea FLAGYL 500 MG TABS 705208 METRONIDAZOLE Inactive BACTRIM DS 800-160 MG TABS 1 pill by mouth twice daily, for UTI BACTRIM DS 800-160 MG TABS 997814 SULFAMETHOXAZOLE-TRIM ETHOPRIM Inactive Advance Directives Directive Description [...] Value Unit Range Description Lab Report: CBC W/DIFF, Comp. Metabolic Panel - Chemistry sodium, serum 142 mmol/L 000-310 4214/04/27 potassium, serum 3.2 mmol/L 3.5-5.2 chloride, serum 101 mmol/L 98-107 carbon dioxide, venous blood 32.1 mmol/L 21.0-32 .0 blood glucose 115 mg/dL 65-110 urea nitrogen, blood 28 mg/dL 7-18 creatinine, serum 1.60 mg/dL 0.60-1.30 alanine aminotransferase (SGPT), serum 71 U/L -78 aspartate aminotransferase (SGOT), serum 46 U/L 15-37 calcium, serum 8.2 mg/dL 8.5-10.1 bilirubin, serum, total 0.50 mg/dL 0.00-1.00 sodium, serum 138 mmol/L 337-667 1594/10/23 carbon dioxide, venous blood 29.5 mmol/L 21.0-32 .0 potassium, serum 3.7 mmol/L 3.5-5.2 chloride, serum 100 mmol/L 98-107 blood glucose 93 mg/dL 65-110 urea nitrogen, blood 29 mg/dL 7-18 creatinine, serum 1.25 mg/dL 0.55-1.30 alanine aminotransferase (SGPT), serum 50 U/L -78 aspartate aminotransferase (SGOT), serum 34 U/L 15-37 calcium, serum 9.5 mg/dL 8.5-10.1 bilirubin, serum, total 0.40 mg/dL 0.00-1.00 sodium, serum 142 mmol/L 062-526 7141/04/20 carbon dioxide, venous blood 34.7 mmol/L 21.0-32 [...] CBC W/DIFF, Comp. Metabolic Panel - Hematology neutrophils as percent of blood leukocytes 54.5 % 42.2-75.2 leukocyte count, blood 5.9 10^3/MM^3 10*3/mm3 4.6-10.2 [...] 11 .6-14.8 platelet count 204 10^3/MM^3 10*3/mm3 671-070 5520/04/27 hemoglobin, blood 14.4 g/dL 12.0-16.0 hematocrit, blood 42.0 % 36.0-46.0 mean corpuscular volume, RBC 101 fL 80-97 mean corpuscular hemoglobin, RBC 34.7 pg 27. 0-31.2 mean corpuscular hemoglobin concentration, RBC 34.4 G/DL % 31.8-35.4 red blood cell distribution width 13.5 % 11 .6-14.8 platelet count 213 10^3/MM^3 10*3/mm3 670-578 6225/10/23 monocytes as percent of blood leukocytes 7.4 % 1.7-9.3 lymphocytes as percent of blood leukocytes 34.5 % 20.5-51.1 erythrocyte (RBC) count 4.39 10^6/MM^3 10*6/mm3 4.04-5.4 8 hemoglobin, blood 14.9 g/dL 12.0-16.0 erythrocyte (RBC) count 4.15 10^6/MM^3 10*6/mm3 4.04-5.4 8 lymphocytes as percent of blood leukocytes 34.0 % 20.5-51.1 monocytes as percent of blood leukocytes 5.9 % 1.7-9.3 neutrophils as percent of blood leukocytes 56.9 % 42.2-75.2 leukocyte count, blood 5.3 10^3/MM^3 10*3/mm3 4.6-10.2 leukocyte count, blood 5.5 10^3/MM^3 10*3/mm3 4.6-10.2 hematocrit, blood 43.1 % 36.0-46.0 mean corpuscular volume, RBC 98 fL 80-97 mean corpuscular hemoglobin, RBC 33.9 pg 27. 0-31.2 mean corpuscular hemoglobin concentration, RBC 34.5 G/DL % 31.8-35.4 red blood cell distribution width 12.9 % 11 .6-14.8 platelet count 189 10^3/MM^3 10*3/mm3 142-424 Lab Report: CEA - Serology carcinoembryonic antigen 1.2 ng/mL carcinoembryonic antigen 1.1 ng/mL carcinoembryonic antigen 0.9 ng/mL Lab Report: Lipid Panel, MICROALBUMIN, T hyroid Stimulating Hormone (L) - Chemistry albumin/creatinine ratio, urine < 30 mg/g mg/g{creat} 0-2 9 TSH 1.24 m[iU]/mL 0.36-3.74 cholesterol, serum 227 mg/dL 229-037 3569/10/23 triglyceride, serum, fasting 144 mg/dL 30-200 HDL cholesterol, serum 60 mg/dL 32-96 LDL cholesterol, serum 138 mg/dL 0-130 Lab Report: Lipid Panel, MICROALBUMIN, T hyroid Stimulating Hormone (L) - Lab microalbumin, urine 10 0-19 Encounters Code Encounter Date Provider Facility CPT-71517 Level 3 Est. Patient 13:15:54 CDT Kylie Lund [facility] CPT-97006 Level 3 Est. Patient 09:10:11 CDT Kylieshubham Lund [facility] CPT-44862 Level 4 Est. Patient 12:08:30 [employer] Hope cohn MD PhD [facility] CPT-59293 Level 4 Est. Patient 19:08:42 [employer] Hope cohn MD PhD [facility] CPT-52342 Level 4 Est. Patient 20:04:51 CDT Hope cohn MD PhD [facility] CPT-24139 Level 3 New Patient 01:46:11 [employer] Hope landers MD PhD [facility] Procedures Code Procedure Name Date Entry Date Standard Desc ription CPT-J0897 Prolia 60 mg 16:09:34 [employer] CPT-J0897 Prolia 60 mg 11:10:35 [employer] CPT-14083 Abx/Therapy Injection 11:10:35 [employer] CPT-000 Give Appropriate Flu Vaccine 17:01:15 [employer] 2 CPT-92975 Fluzone High Dose (65+) 15:03:08 [employer]ITCH[employer] 02/15 CPT-14077 Immunization Single Admin 15:03:08 BRIM [employer]ITCHER 2014 CPT-OV Office Visit 15:58:06 CDT CPT-J0897 Prolia 60 mg 08:45:38 CDT CPT-14975 Abx/Therapy Injection 08:45:38 CDT CPT-J3420 Vitamin B12 1000mcg (Cyanocobalamin) 09:26:20 [employer]ITCH[employer] CPT-50142 Abx/Therapy Injection 09:26:20 [employer] CPT-J3420 Vitamin B12 1000mcg (Cyanocobalamin) 09:44:40 [employer] CPT-49085 Abx/Therapy Injection 09:44:40 [employer] CPT-J3420 Vitamin B12 1000mcg (Cyanocobalamin) 09:15:54 [employer] CPT-26852 Abx/Therapy Injection 09:15:54 [employer] CPT-J3420 Vitamin B12 1000mcg (Cyanocobalamin) 09:46:44 [employer] CPT-21762 Abx/Therapy Injection 09:46:44 [employer] CPT-J3420 Vitamin B12 1000mcg (Cyanocobalamin) 09:47:34 [employer] CPT-86828 Abx/Therapy Injection 09:47:34 [employer] CPT-J3420 Vitamin B12 1000mcg (Cyanocobalamin) 14:35:50 [employer] CPT-J3420 Vitamin B12 1000mcg (Cyanocobalamin) 09:25:05 [employer] CPT-99289 Abx/Therapy Injection 09:25:05 [employer] CPT-G0008 Administration of Influenza Virus Vaccine 13:36:47 CDT CPT-02708 Fluzone High-Dose Intramuscular Suspension 11/15 13:36:47 CDT CPT-J0897 Prolia 60 mg 08:50:41 CDT CPT-49342 Abx/Therapy Injection 08:50:41 CDT CPT-91080 Bone Density 12:06:12 CDT CPT-23721 Bone Density 08:54:40 CDT CPT-OV Office Visit 15:37:02 CDT CPT-12501 Postop F/U Visit 15:47:49 CDT CPT-23240 Postop F/U Visit 15:21:02 CDT [facility]PT-[facility] Transitional Care Mgmt-High 07:52:27 CDT 20 20/06/01 CPT-97674 Venipuncture Draw Fee 13:51:18 CDT CPT-58126 Venipuncture Draw Fee 10:14:55 [employer] CPT-28898 Venipuncture Draw Fee 13:39:45 [employer]ER CPT-OV Office Visit 15:11:22 [employer] CPT-14042 Venipuncture Draw Fee 09:20:49 [employer] CPT-55338 Venipuncture Draw Fee 16:52:15 [employer] CPT-13018 Venipuncture Draw Fee 10:37:24 [employer] CPT-48889 Venipuncture Draw Fee 08:21:21 [employer] CPT-80389 Venipuncture Draw Fee 08:30:20 [employer]ER CPT-88490 Venipuncture Draw Fee 14:53:21 [employer]IM [employer]ER CPT-31680 Venipuncture Draw Fee 09:40:56 [employer]ER CPT-12735 Venipuncture Draw Fee 10:30:47 [employer]ER CPT-40846 Venipuncture Draw Fee 10:46:17 [employer]ER CPT-81948 Venipuncture Draw Fee 11:12:45 [employer]ER CPT-28469 Venipuncture Draw Fee 09:53:33 [employer]ER CPT-49789 Venipuncture Draw Fee 11:53:51 [employer]ER CPT-33153 Venipuncture Draw Fee 10:33:50 [employer]ER CPT-46248 Venipuncture Draw Fee 10:05:01 [employer]ER CPT-42891 Venipuncture Draw Fee 14:32:52 [employer]ER CPT-67478 Venipuncture Draw Fee 09:46:13 [employer]ER CPT-05191 Venipuncture Draw Fee 11:34:27 [employer]ER CPT-56188 Venipuncture Draw Fee 13:17:16 [employer]IM [employer]ER CPT-19398 Venipuncture Draw Fee 12:05:39 CDT CPT-78390 Venipuncture Draw Fee 12:49:12 CDT CPT-32049 Venipuncture Draw Fee 12:37:18 CDT CPT-95498 Venipuncture Draw Fee 10:57:11 CDT CPT-38231 Venipuncture Draw Fee 13:47:40 CDT CPT-27258 Venipuncture Draw Fee 10:02:17 CDT CPT-33670 TB Tubersol 17:32:32 CDT CPT-OV Office Visit 16:21:53 CDT CPT-OV Office Visit 15:49:22 CDT CPT-OV Office Visit 17:16:31 CDT CPT-OV Office Visit 10:43:31 CDT
--- OUTSIDE RECORDS SUMMARY | 2019-02-09 12:20 | XMS REPORT | Clinical Summary ---
Author Author Renaldo, Florecita Munoz Organization [facility] [place] Address Unknown Phone Unavailable Allergies, Adverse Reactions, [...] PhD Hyperpotassemia GERD 530.81 Resolved Kylie Yokum ACCOUNTANT MANAGER Esophageal reflux Health maintenance exam V70.0 Resolved Adolfo Yates MD Routine general medical examination at a health care facility Anemia 285.9 Resolved Kylie Holt ACCOUNTANT MANAGER Anemia, unspecified Personal history of malignant [...] Sebaceous cyst, scalp 706.2 Resolved Kylie Holt ACCOUNTANT MANAGER Sebaceous cyst Cervical lymphadenopathy, anterior, left 785.6 Resolv ed Kylie Holt ACCOUNTANT MANAGER Enlargement of lymph nodes Need for prophylactic vaccination and inoculation against in fluenza V04.81 Resolved Adam Yates MD Need for prophylactic vaccination and inoculation against influenza Preventive health care V70.0 Active Kylie Holt ACCOUNTANT MANAGER Routine general medical examination at a health care facility Thyroid nodule, left 241.0 Active Kylie Gonzalez PRN Nontoxic uninodular goiter Screening mammogram V76.12 Active Kylie Holt AP RN Other screening mammogram Mandy 706.2 Active Adam Yates MD Sebaceous cyst ABDOMINAL PAIN, RIGHT LOWER QUADRANT ICD-789.03 Inactive Kina Joshua ACCOUNTANT MANAGER ADENOCARCINOMA, COLON, 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 Dick Yates MD ABDOMINAL PAIN, GENERALIZED ICD-789.07 Inactive Hope Benavidez MD PhD FEVER UNSPECIFIED ICD-780.60 Inactive Hope cohn MD PhD UNSPECIFIED VENOUS INSUFFICIENCY ICD-459.81 Chula ctive Adam Yates MD ADENOCARCINOMA, 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 Inac tive Hope Benavidez MD PhD Hyperkalemia ICD-276.7 Inactive Hope Benavidez MD PhD GERD ICD-530.81 Inactive Kylie Holt ACCOUNTANT MANAGER 2015 Health maintenance exam ICD-V70.0 Bam Yates MD Anemia ICD-285.9 Inactive Kylie Holt ACCOUNTANT MANAGER 07/24 Weakness ICD-780.79 Inactive Hope Benavidez [...] cyst, scalp ICD-706.2 Inactive Tracy shubham Yanet ACCOUNTANT MANAGER Cervical lymphadenopathy, anterior, left ICD-785.6 Inactive Kylie Holt ACCOUNTANT MANAGER Need for prophylactic vaccination and inoculation against in fluenza ICD-V04.81 Bam Yates MD Medication List Medication Instructions Start Date Stop Date Generic Name NDC Status Provider Patient Instruction VITAMIN D3 2000 UNIT ORAL CAPS Melaleuca-One daily CHOLECALCIFEROL 98968077403 Active Kylie Yokum ACCOUNTANT MANAGER Active PROBIOTIC DAILY ORAL CAPS Take one daily PROBIOTIC PRODUCT 42074031258 Active Kylie Holt ACCOUNTANT MANAGER Active IRON 325 (65 FE) MG TABS 1 every other day FERR OUS SULFATE 79017661826 No Longer Active Kylie Holt ACCOUNTANT MANAGER Active FLORANEX PACK 1 pack three times daily, for bowel health LACTOBACILLUS 34244365055 No Longer Active yKlie Holt ACCOUNTANT MANAGER Active LOMOTIL 2.5-0.025 MG TABS 1 tab by mouth prn 4 DIPHENOXYLATE-ATROPINE 84529847892 No Longer Active Kylie Lundum ACCOUNTANT MANAGER Active MAGNESIUM GLUCONATE 250 MG TABS 1 tab tid 4 MAGNESIUM GLUCONATE 47569787760 No Longer Active Kylie Holt ACCOUNTANT MANAGER Active CYANOCOBALAMIN 1000 MCG/ML INJ SOLN 1 injection every 2 weeks 20 20/01/03 CYANOCOBALAMIN 88835276390 No Longer Active Kylie Holt ACCOUNTANT MANAGER Active ATENOLOL 25 MG ORAL TABS 1/2 pill by mouth daily, for headac hes, blood pressure ATENOLOL 97601876940 Active Kylie Lundum ACCOUNTANT MANAGER Active PROPRANOLOL HCL 80 MG TABS 1 tab tue. and thur. 04/10 PROPRANOLOL HCL 16888824197 No Longer Active Hope Benavidez MD PhD A ctive VITAMIN D3 4000 IU 1 tab 3 times daily VITAMIN D3 4000 IU No Longer Active Hope Benavidez MD PhD Active BACTRIM DS 800-160 MG TABS 1 pill by mouth twice daily, for UTI SULFAMETHOXAZOLE-TRIMETHOPRIM 28545862359 No Longer Active A attila Benavidez MD PhD Active PROLIA 60 MG/ML SOLN 1 shot every 6 months for osteoprosis DENOSUMAB 85437389770 Active Hope Benavidez MD PhD Active CALCIUM + D + K 750-500-40 MG-UNT-MCG TABS 1 tab by mouth tw ice daily CALCIUM-VITAMIN D-VITAMIN K 29358368822 Active Hope landers MD PhD Active DAILY VALUE MULTIVITAMIN TABS 1 tab by mouth twice daily MULTIPLE VITAMIN 84500848140 Active Hope Benavidez MD PhD Active FISH OIL 306 MG CAPS 1 tab by mouth three times daily OMEGA-3 FATTY ACIDS 62602990260 Active Hope Benavidez MD PhD Active LUTEIN 10 MG TABS 1 tab daily LUTEIN 41126927274 Act cash Hope Benavidez MD PhD Active TRIAMTERENE-HCTZ 37.5-25 MG TABS 1 tab by mouth daily TRIAMTERENE-HCTZ 14722927930 Active Kylieshubham Holt ACCOUNTANT MANAGER Active CYCLOBENZAPRINE HCL 10 MG TABS 1 tablet by mouth three times daily as needed for headaches CYCLOBENZAPRINE HCL 62243839675 No Longe r Active Adam Yates MD Active OMEPRAZOLE 20 MG CPDR 1 tablet by mouth daily for GERD OMEPRAZOLE 50512915841 No Longer Active Adam Yates MD A ctive ZOFRAN 8 MG TABS 1 tab by mouth every 12 hours prn 201 05/16/09 ONDANSETRON HCL 63567294496 No Longer Active Adam Yates MD Active PHENADOZ 25 MG SUPP 1 every 4 hrs. PRN PROMETHA ZINE HCL 52224436081 No Longer Active Adam Yates MD Active POTASSIUM CHLORIDE 20 MEQ PACK by mouth twice a day prn POTASSIUM CHLORIDE 69816765177 No Longer Active Adam Yates MD Active PROMETHAZINE HCL 25 MG TABS 1 Q. 4 hr. PRN PROM ETHAZINE HCL 78184789312 No Longer Active Adam Yates MD Active INNOPRAN XL 120 MG [id number] Take one by mouth daily 2 PROPRANOLOL HCL SR BEADS 56237757258 No Longer Active Adam Yates MD A ctive FLAGYL 500 MG TABS 1 pill by mouth three times daily, for diarrh ea METRONIDAZOLE 33160110349 No Longer Active Hope Benavidez MD PhD Active DYAZIDE 37.5-25 MG CAPS 1 qd TRIAMTERENE-HC TZ 52948599307 No Longer Active Hope Benavidez MD PhD Active PROZAC 20 MG CAPS 1 q d FLUOXETINE HCL 73608 099319 No Longer Active Hope Benavidez MD PhD Active SIMVASTATIN 40 MG TABS 1 qd SIMVASTATIN 004 26220575 No Longer Active Adam Yates MD Active MELOXICAM 15 MG TABS 1 qd MELOXICAM 1278591 7334 No Longer Active Adam Yates MD Active IMODIUM A-D 2 MG TABS 2 onset at diarrhea and prn. LOPERAMIDE HCL 15017410351 Active Hope Benavidez MD PhD Active EXCEDRIN EXTRA STRENGTH 250-250-65 MG TABS 1-2 q6h PRN headache 201 04/16/21 [id number] 50580480570 Active Hope Benavidez MD PhD Active FLAGYL 500 MG TABS 1 qid METRONIDAZOLE 57714 716046 No Longer Active Adam Yates MD Active LEVAQUIN 750 MG TABS 1 qd LEVOFLOXACIN 5486 1148803 No Longer Active Adam Yates MD Active ADULT ASPIRIN LOW STRENGTH 81 MG TBDP 1 qd A SPIRIN 96390635555 Active Hope Benavidez MD PhD Active LEVAQUIN 750 MG TABS 1 qd LEVAQUIN 750 MG T ABS 810620 LEVOFLOXACIN Inactive FLAGYL 500 MG TABS 1 qid FLAGYL 500 MG TABS 700016 METRONIDAZOLE Inactive MELOXICAM 15 MG TABS 1 qd MELOXICAM 15 MG T ABS 571063 MELOXICAM Inactive SIMVASTATIN 40 MG TABS 1 qd SIMVASTATIN 40 MG TABS 839593 SIMVASTATIN Inactive PROZAC 20 MG CAPS 1 q d PROZAC 20 MG CAPS 31 0385 FLUOXETINE HCL Inactive DYAZIDE 37.5-25 MG CAPS 1 qd DYAZIDE 37.5 -25 MG CAPS 328738 TRIAMTERENE-HCTZ Inactive INNOPRAN XL 120 MG [id number] Take one by mouth daily 2 INNOPRAN XL 120 MG [id number] PROPRANOLOL HCL SR BEADS Inactive PROMETHAZINE HCL 25 MG TABS 1 Q. 4 hr. PRN PROMETHAZINE HCL 25 MG TABS 836911 PROMETHAZINE HCL Inactive POTASSIUM CHLORIDE 20 MEQ PACK by mouth twice a day prn POTASSIUM CHLORIDE 20 MEQ PACK 008238 POTASSIUM CHLORIDE Inactive PHENADOZ 25 MG SUPP 1 every 4 hrs. PRN PHENADOZ 2 5 MG SUPP 983290 PROMETHAZINE HCL Inactive ZOFRAN 8 MG TABS 1 tab by mouth every 12 hours prn 201 05/16/09 ZOFRAN 8 MG TABS 472899 ONDANSETRON HCL Inactive OMEPRAZOLE 20 MG CPDR 1 tablet by mouth daily for GERD OMEPRAZOLE 20 MG CPDR 514252 OMEPRAZOLE Inactive CYCLOBENZAPRINE HCL 10 MG TABS 1 tablet by mouth three times daily as needed for headaches CYCLOBENZAPRINE HCL 10 MG TABS 468751 CYCLOBENZAPRINE HCL Inactive VITAMIN D3 4000 IU 1 tab 3 times daily VITAMIN D3 4000 IU Inactive PROPRANOLOL HCL 80 MG TABS 1 tab tue. and thur. 04/10 PROPRANOLOL HCL 80 MG TABS 739612 PROPRANOLOL HCL Inactive CYANOCOBALAMIN 1000 MCG/ML INJ SOLN 1 injection every 2 weeks 20 20/01/03 CYANOCOBALAMIN 1000 MCG/ML INJ SOLN 256828 CYANOCOBALAM IN Inactive MAGNESIUM GLUCONATE 250 MG TABS 1 tab tid 4 MAGNESIUM GLUCONATE 250 MG TABS 765407 MAGNESIUM GLUCONATE Inactive LOMOTIL 2.5-0.025 MG TABS 1 tab by mouth prn 4 LOMOTIL 2.5- 0.025 MG TABS 3211897 DIPHENOXYLATE-ATROPINE Inactive FLORANEX PACK 1 pack three times daily, for bowel health FLORANEX PACK LACTOBACILLUS Inactive IRON 325 (65 FE) MG TABS 1 every other day IRON 325 (65 FE) MG TABS 651049 FERROUS SULFATE Inactive FLAGYL 500 MG TABS 1 pill by mouth three times daily, for diarrh ea FLAGYL 500 MG TABS 421701 METRONIDAZOLE Inactive BACTRIM DS 800-160 MG TABS 1 pill by mouth twice daily, for UTI BACTRIM DS 800-160 MG TABS 382595 SULFAMETHOXAZOLE-TRIM ETHOPRIM Inactive Advance Directives Directive Description [...] Panel - Chemistry sodium, serum 142 mmol/L 550-435 0235/04/20 carbon dioxide, venous blood 34.7 mmol/L 21.0-32 [...] ... - Chemistry sodium, serum 139 mmol/L 295-407 3991/10/20 carbon dioxide, venous blood 32.2 mmol/L 21.0-32 [...] - Chemi stry cholesterol, serum 200 mg/dL 839-449 1771/11/22 triglyceride, serum, fasting 129 mg/dL 30-200 HDL cholesterol, serum 56 mg/dL 32-96 LDL cholesterol, serum 118 mg/dL 0-130 calcium, serum 9.0 mg/dL 8.5-10.1 Encounters Code Encounter Date Provider Facility CPT-63511 Level 3 New Patient 16:22:01 TUNNEL KILN FIRER Adam Yates MD [facility] CPT-09338 Level 4 Est. Patient 17:00:48 CDT Kylie Lund [facility] CPT-40043 Level 3 Est. Patient 13:15:54 CDT Kylie Lund [facility] CPT-10948 Level 3 Est. Patient 09:10:11 CDT Kylie Lund [facility] CPT-22824 Level 4 Est. Patient 12:08:30 TUNNEL KILN FIRER Hope cohn MD PhD [facility] CPT-51968 Level 4 Est. Patient 19:08:42 TUNNEL KILN FIRER Hope cohn MD PhD [facility] CPT-41499 Level 4 Est. Patient 20:04:51 CDT Hope cohn MD PhD [facility] CPT-02043 Level 3 New Patient 01:46:11 TUNNEL KILN FIRER Hope landers MD PhD [facility] Procedures Code Procedure Name Date Entry Date Standard Desc ription CPT-51063 Lipid - LAB USE ONLY 10:01:52 TUNNEL KILN FIRER 2 CPT-72242 Calcium - LAB USE ONLY 10:01:51 TUNNEL KILN FIRER CPT-32469 Venipuncture Draw Fee 10:01:51 TUNNEL KILN FIRER CPT-LR Lesion Removal 16:22:01 TUNNEL KILN FIRER CPT-40684 TSH - LAB USE ONLY 14:26:02 CDT CPT-40406 CMP - LAB USE ONLY 14:26:01 CDT CPT-59728 CBC with Diff - LAB USE ONLY 14:26:01 CDT 2 CPT-41739 Venipuncture Draw Fee 14:26:01 CDT CPT-57868 First Vx - Ix admin for Medicare patients 13:27:08 CDT CPT-94510 Fluzone High-Dose Intramuscular Suspension 11/26 13:27:08 CDT CPT-G0438 Initial Annual Wellness Exam 14:19:57 CD T CPT-G0009 Administration of Pneumococcal Vaccine 9 11:36:25 CDT CPT-74752 Prevnar 13 Intramuscular Suspension 1 1:36:25 CDT CPT-84225 Prevnar 13 Intramuscular Suspension 1 0:40:58 CDT CPT-J0897 Prolia 60 mg 10:37:16 CDT CPT-01814 Abx/Therapy Injection 10:37:16 CDT CPT-J0897 Prolia 60 mg 16:09:34 TUNNEL KILN FIRER CPT-J0897 Prolia 60 mg 11:10:35 TUNNEL KILN FIRER CPT-67168 Abx/Therapy Injection 11:10:35 TUNNEL KILN FIRER CPT-000 Give Appropriate Flu Vaccine 17:01:15 TUNNEL KILN FIRER 2 CPT-42266 Fluzone High Dose (65+) 15:03:08 TUNNEL KILN FIRER 02/15 CPT-64384 Immunization Single Admin 15:03:08 TUNNEL KILN FIRER 2014 CPT-OV Office Visit 15:58:06 CDT CPT-J0897 Prolia 60 mg 08:45:38 CDT CPT-18339 Abx/Therapy Injection 08:45:38 CDT CPT-J3420 Vitamin B12 1000mcg (Cyanocobalamin) 09:26:20 TUNNEL KILN FIRER CPT-54406 Abx/Therapy Injection 09:26:20 TUNNEL KILN FIRER CPT-J3420 Vitamin B12 1000mcg (Cyanocobalamin) 09:44:40 TUNNEL KILN FIRER CPT-18428 Abx/Therapy Injection 09:44:40 TUNNEL KILN FIRER CPT-J3420 Vitamin B12 1000mcg (Cyanocobalamin) 09:15:54 TUNNEL KILN FIRER CPT-70097 Abx/Therapy Injection 09:15:54 TUNNEL KILN FIRER CPT-J3420 Vitamin B12 1000mcg (Cyanocobalamin) 09:46:44 TUNNEL KILN FIRER CPT-58510 Abx/Therapy Injection 09:46:44 TUNNEL KILN FIRER CPT-J3420 Vitamin B12 1000mcg (Cyanocobalamin) 09:47:34 TUNNEL KILN FIRER CPT-80374 Abx/Therapy Injection 09:47:34 TUNNEL KILN FIRER CPT-J3420 Vitamin B12 1000mcg (Cyanocobalamin) 14:35:50 TUNNEL KILN FIRER CPT-J3420 Vitamin B12 1000mcg (Cyanocobalamin) 09:25:05 TUNNEL KILN FIRER CPT-62671 Abx/Therapy Injection 09:25:05 TUNNEL KILN FIRER CPT-G0008 Administration of Influenza Virus Vaccine 13:36:47 CDT CPT-27893 Fluzone High-Dose Intramuscular Suspension 11/15 13:36:47 CDT CPT-J0897 Prolia 60 mg 08:50:41 CDT CPT-91947 Abx/Therapy Injection 08:50:41 CDT CPT-06584 Bone Density 12:06:12 CDT CPT-00945 Bone Density 08:54:40 CDT CPT-OV Office Visit 15:37:02 CDT CPT-91780 Postop F/U Visit 15:47:49 CDT CPT-69145 Postop F/U Visit 15:21:02 CDT [facility] Transitional Care Mgmt-High 07:52:27 CDT 20 20/06/01 CPT-66062 Venipuncture Draw Fee 13:51:18 CDT CPT-97880 Venipuncture Draw Fee 10:14:55 TUNNEL KILN FIRER CPT-33396 Venipuncture Draw Fee 13:39:45 TUNNEL KILN FIRER CPT-OV Office Visit 15:11:22 TUNNEL KILN FIRER CPT-51856 Venipuncture Draw Fee 09:20:49 TUNNEL KILN FIRER CPT-49182 Venipuncture Draw Fee 16:52:15 TUNNEL KILN FIRER CPT-23244 Venipuncture Draw Fee 10:37:24 TUNNEL KILN FIRER CPT-41393 Venipuncture Draw Fee 08:21:21 TUNNEL KILN FIRER CPT-76169 Venipuncture Draw Fee 08:30:20 TUNNEL KILN FIRER CPT-92839 Venipuncture Draw Fee 14:53:21 TUNNEL KILN FIRER CPT-63692 Venipuncture Draw Fee 09:40:56 TUNNEL KILN FIRER CPT-95096 Venipuncture Draw Fee 10:30:47 TUNNEL KILN FIRER CPT-14277 Venipuncture Draw Fee 10:46:17 TUNNEL KILN FIRER CPT-87575 Venipuncture Draw Fee 11:12:45 TUNNEL KILN FIRER CPT-79227 Venipuncture Draw Fee 09:53:33 TUNNEL KILN FIRER CPT-55737 Venipuncture Draw Fee 11:53:51 TUNNEL KILN FIRER CPT-52496 Venipuncture Draw Fee 10:33:50 TUNNEL KILN FIRER CPT-18584 Venipuncture Draw Fee 10:05:01 TUNNEL KILN FIRER CPT-63361 Venipuncture Draw Fee 14:32:52 TUNNEL KILN FIRER CPT-28975 Venipuncture Draw Fee 09:46:13 TUNNEL KILN FIRER CPT-98047 Venipuncture Draw Fee 11:34:27 TUNNEL KILN FIRER CPT-28925 Venipuncture Draw Fee 13:17:16 TUNNEL KILN FIRER CPT-43857 Venipuncture Draw Fee 12:05:39 CDT CPT-20956 Venipuncture Draw Fee 12:49:12 CDT CPT-24543 Venipuncture Draw Fee 12:37:18 CDT CPT-55053 Venipuncture Draw Fee 10:57:11 CDT CPT-39076 Venipuncture Draw Fee 13:47:40 CDT CPT-19418 Venipuncture Draw Fee 10:02:17 CDT CPT-49499 TB Tubersol 17:32:32 CDT CPT-OV Office Visit 16:21:53 CDT CPT-OV Office Visit 15:49:22 CDT CPT-OV Office Visit 17:16:31 CDT CPT-OV Office Visit 10:43:31 CDT
--- OUTSIDE RECORDS SUMMARY | 2019-02-09 12:20 | XMS REPORT | Clinical Summary ---
Author Author Renaldo, Florecita Munoz Organization [facility] Modality Address Unknown Phone Unavailable Allergies, Adverse Reactions, [...] PhD Hyperpotassemia GERD 530.81 Resolved Kylie Yokum [employer] Esophageal reflux Health maintenance exam V70.0 Resolved Adolfo Yates MD Routine general medical examination at a health care facility Anemia 285.9 Resolved Kylie Holt [employer] Anemia, unspecified Personal history of malignant neoplasm of large intestine V10.05 Active Adam Yates MD Personal history of malignant neoplasm of large intestine Hypomagnesemia 275.2 Resolved Kylie Holt [employer] Disorders of magnesium metabolism Weakness 780.79 Resolved [...] Sebaceous cyst, scalp 706.2 Resolved Kylie Yokum [employer] Sebaceous cyst Cervical lymphadenopathy, anterior, left 785.6 Resolv ed Kylie Yokum [employer] Enlargement of lymph nodes Need for prophylactic vaccination and inoculation against in fluenza V04.81 Resolved Adam Yates MD Need for prophylactic vaccination and inoculation against influenza Preventive health care V70.0 Active Kylie Yokum [employer] Routine general medical examination at a health care facility Thyroid nodule, left 241.0 Active Kylie Yokum A PRN Nontoxic uninodular goiter Screening mammogram V76.12 Active Kylie Yokum AP RN Other screening mammogram Mandy 706.2 Resolved Kylie Yokum [employer] Sebaceous cyst Colon cancer, ascending 153.6 Resolved Kylie Yok um [employer] Malignant neoplasm of ascending colon Foot pain, left 729.5 Active Sulema Schwarz DEV TECHNICAL MGR Pain in limb Splinter 919.6 Active Kylie Yokum [employer] Superficial foreign body (splinter) of other, multiple, and unspecified sites, without major open wound and without mention of infection ABDOMINAL PAIN, RIGHT LOWER QUADRANT ICD-789.03 Inactive Kina Joshua [employer] ADENOCARCINOMA, COLON, 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 Dick Yates MD ABDOMINAL PAIN, GENERALIZED ICD-789.07 Inactive Hope Benavidez MD PhD FEVER UNSPECIFIED ICD-780.60 Inactive Hope cohn MD PhD UNSPECIFIED VENOUS INSUFFICIENCY ICD-459.81 Elda ctive Adam Yates MD ADENOCARCINOMA, 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 Inac tive Hope Benavidez MD PhD Hyperkalemia ICD-276.7 Inactive Hope Benavidez MD PhD GERD ICD-530.81 Inactive Kylie Holt [employer] 2015 Health maintenance exam ICD-V70.0 Inactive Adolfo Yates MD Anemia ICD-285.9 Inactive Kylie Holt [employer] 07/24 Hypomagnesemia ICD-275.2 Inactive Kylie Holt [employer] Weakness ICD-780.79 Inactive Hope Benavidez MD P [...] Sebaceous cyst, scalp ICD-706.2 Inactive Tracy Holt [employer] Cervical lymphadenopathy, anterior, left ICD-785.6 Inactive Kylie Holt [employer] Need for prophylactic vaccination and inoculation against in fluenza ICD-V04.81 Inactive Adam Yates MD Mandy ICD-706.2 Inactive Kylie Holt [employer] 07/20 Colon cancer, ascending ICD-153.6 Inactive Bravo Holt [employer] Medication List Medication Instructions Start Date Stop Date Generic Name NDC Status Provider Patient Instruction COQ10 100 MG ORAL CAPS 1 daily COENZYME Q10 [id number] 20 Active LETY [place] Active VITAMIN D3 2000 UNIT ORAL CAPS Melaleuca-One daily CHOLECALCIFEROL 98330871875 Active Kylie Holt APRN Active PROBIOTIC DAILY ORAL CAPS Take one daily PROBIOTIC PRODUCT 67135063698 Active Kylie Holt APRN Active IRON 325 (65 FE) MG TABS 1 every other day FERR OUS SULFATE 80454507250 No Longer Active Kylie Holt APRN Active FLORANEX PACK 1 pack three times daily, for bowel health LACTOBACILLUS 64092114027 No Longer Active Kylie Holt APRN Active LOMOTIL 2.5-0.025 MG TABS 1 tab by mouth prn 4 DIPHENOXYLATE-ATROPINE 47889228244 No Longer Active Kylie Holt APRN Active MAGNESIUM GLUCONATE 250 MG TABS 1 tab tid 4 MAGNESIUM GLUCONATE 52055325061 No Longer Active Kylie Lundum [employer] Active CYANOCOBALAMIN 1000 MCG/ML INJ SOLN 1 injection every 2 weeks 20 20/01/03 CYANOCOBALAMIN 76290098698 No Longer Active Kylie Holt APRN Active ATENOLOL 25 MG ORAL TABS 1/2 pill by mouth daily, for headac hes, blood pressure ATENOLOL 23357391982 Active Kylieshubham Holt [employer] Active PROPRANOLOL HCL 80 MG TABS 1 tab tue. and thur. 04/10 PROPRANOLOL HCL 56833755028 No Longer Active Hope Benavidez MD PhD A ctive VITAMIN D3 4000 IU 1 tab 3 times daily VITAMIN D3 4000 IU No Longer Active Hope Benavidez MD PhD Active BACTRIM DS 800-160 MG TABS 1 pill by mouth twice daily, for UTI SULFAMETHOXAZOLE-TRIMETHOPRIM 16262269405 No Longer Active A attila Benavidez MD PhD Active PROLIA 60 MG/ML SOLN 1 shot every 6 months for osteoprosis DENOSUMAB 93055926509 Active Hope Benavidez MD PhD Active CALCIUM + D + K 750-500-40 MG-UNT-MCG TABS 1 tab by mouth tw ice daily CALCIUM-VITAMIN D-VITAMIN K 02555938600 Active Hope landers MD PhD Active DAILY VALUE MULTIVITAMIN TABS 1 tab by mouth twice daily MULTIPLE VITAMIN 27019305663 Active Hope Benavidez MD PhD Active FISH OIL 306 MG CAPS 1 tab by mouth three times daily OMEGA-3 FATTY ACIDS 61681224999 Active Hope Benavidez MD PhD Active LUTEIN 10 MG TABS 1 tab daily LUTEIN 55786320981 Act cash Hope Benavidez MD PhD Active TRIAMTERENE-HCTZ 37.5-25 MG TABS 1 tab by mouth daily TRIAMTERENE-HCTZ 78984040169 Active Kylie Holt APRN Active CYCLOBENZAPRINE HCL 10 MG TABS 1 tablet by mouth three times daily as needed for headaches CYCLOBENZAPRINE HCL 26034308464 No Longe r Active Adam Yates MD Active OMEPRAZOLE 20 MG CPDR 1 tablet by mouth daily for GERD OMEPRAZOLE 31042851496 No Longer Active Adam Yates MD A ctive ZOFRAN 8 MG TABS 1 tab by mouth every 12 hours prn 201 05/16/09 ONDANSETRON HCL 41633040454 No Longer Active Adam Yates MD Active PHENADOZ 25 MG SUPP 1 every 4 hrs. PRN PROMETHA ZINE HCL 53193582871 No Longer Active Adam Yates MD Active POTASSIUM CHLORIDE 20 MEQ PACK by mouth twice a day prn POTASSIUM CHLORIDE 37364117041 No Longer Active Adam Yates MD Active PROMETHAZINE HCL 25 MG TABS 1 Q. 4 hr. PRN PROM ETHAZINE HCL 76321281641 No Longer Active Adam Yates MD Active INNOPRAN XL 120 MG [id number]-RMM Take one by mouth daily 2 PROPRANOLOL HCL SR BEADS 57864536990 No Longer Active Adam Yates MD A ctive FLAGYL 500 MG TABS 1 pill by mouth three times daily, for diarrh ea METRONIDAZOLE 56080757620 No Longer Active Hope Benavidez MD PhD Active DYAZIDE 37.5-25 MG CAPS 1 qd TRIAMTERENE-HC TZ 65881576127 No Longer Active Hope Benavidez MD PhD Active PROZAC 20 MG CAPS 1 q d FLUOXETINE HCL 83443 881798 No Longer Active Hope Benavidez MD PhD Active SIMVASTATIN 40 MG TABS 1 qd SIMVASTATIN 004 20101004 No Longer Active Adam Yates MD Active MELOXICAM 15 MG TABS 1 qd MELOXICAM 8539817 7686 No Longer Active Adam Yates MD Active IMODIUM A-D 2 MG TABS 2 onset at diarrhea and prn. LOPERAMIDE HCL 09078310378 Active Hope Benavidez MD PhD Active EXCEDRIN EXTRA STRENGTH 250-250-65 MG TABS 1-2 q6h PRN headache 201 04/16/21 [id number] 26482810976 Active Hope Benavidez MD PhD Active FLAGYL 500 MG TABS 1 qid METRONIDAZOLE 32854 760424 No Longer Active Adam Yates MD Active LEVAQUIN 750 MG TABS 1 qd LEVOFLOXACIN 5486 4569285 No Longer Active Adam Yates MD Active ADULT ASPIRIN LOW STRENGTH 81 MG TBDP 1 qd A SPIRIN 39200091312 Active Hope Benavidez MD PhD Active LEVAQUIN 750 MG TABS 1 qd LEVAQUIN 750 MG T ABS 638975 LEVOFLOXACIN Inactive FLAGYL 500 MG TABS 1 qid FLAGYL 500 MG TABS 311765 METRONIDAZOLE Inactive MELOXICAM 15 MG TABS 1 qd MELOXICAM 15 MG T ABS 606876 MELOXICAM Inactive SIMVASTATIN 40 MG TABS 1 qd SIMVASTATIN 40 MG TABS 251282 SIMVASTATIN Inactive PROZAC 20 MG CAPS 1 q d PROZAC 20 MG CAPS 31 0385 FLUOXETINE HCL Inactive DYAZIDE 37.5-25 MG CAPS 1 qd DYAZIDE 37.5 -25 MG CAPS 325790 TRIAMTERENE-HCTZ Inactive INNOPRAN XL 120 MG [id number] Take one by mouth daily 2 INNOPRAN XL 120 MG [id number] PROPRANOLOL HCL SR BEADS Inactive PROMETHAZINE HCL 25 MG TABS 1 Q. 4 hr. PRN PROMETHAZINE HCL 25 MG TABS 331281 PROMETHAZINE HCL Inactive POTASSIUM CHLORIDE 20 MEQ PACK by mouth twice a day prn POTASSIUM CHLORIDE 20 MEQ PACK 2059804 POTASSIUM CHLORIDE Inactive PHENADOZ 25 MG SUPP 1 every 4 hrs. PRN PHENADOZ 2 5 MG SUPP 701408 PROMETHAZINE HCL Inactive ZOFRAN 8 MG TABS 1 tab by mouth every 12 hours prn 201 05/16/09 ZOFRAN 8 MG TABS 664780 ONDANSETRON HCL Inactive OMEPRAZOLE 20 MG CPDR 1 tablet by mouth daily for GERD OMEPRAZOLE 20 MG CPDR 106029 OMEPRAZOLE Inactive CYCLOBENZAPRINE HCL 10 MG TABS 1 tablet by mouth three times daily as needed for headaches CYCLOBENZAPRINE HCL 10 MG TABS 044129 CYCLOBENZAPRINE HCL Inactive VITAMIN D3 4000 IU 1 tab 3 times daily VITAMIN D3 4000 IU Inactive PROPRANOLOL HCL 80 MG TABS 1 tab tue. and thur. 04/10 PROPRANOLOL HCL 80 MG TABS 682852 PROPRANOLOL HCL Inactive CYANOCOBALAMIN 1000 MCG/ML INJ SOLN 1 injection every 2 weeks 20 20/01/03 CYANOCOBALAMIN 1000 MCG/ML INJ SOLN 819583 CYANOCOBALAM IN Inactive MAGNESIUM GLUCONATE 250 MG TABS 1 tab tid 4 MAGNESIUM GLUCONATE 250 MG TABS 500672 MAGNESIUM GLUCONATE Inactive LOMOTIL 2.5-0.025 MG TABS 1 tab by mouth prn 4 LOMOTIL 2.5- 0.025 MG TABS 5119407 DIPHENOXYLATE-ATROPINE Inactive FLORANEX PACK 1 pack three times daily, for bowel health FLORANEX PACK LACTOBACILLUS Inactive IRON 325 (65 FE) MG TABS 1 every other day IRON 325 (65 FE) MG TABS 595770 FERROUS SULFATE Inactive FLAGYL 500 MG TABS 1 pill by mouth three times daily, for diarrh ea FLAGYL 500 MG TABS 407814 METRONIDAZOLE Inactive BACTRIM DS 800-160 MG TABS 1 pill by mouth twice daily, for UTI BACTRIM DS 800-160 MG TABS 713703 SULFAMETHOXAZOLE-TRIM ETHOPRIM Inactive Advance Directives Directive Description [...] Value Unit Range Description blood pressure, diastolic 70 mm[Hg] BP dobson [...] weight E&M 136.5 [lb_av] Weight Measure d blood pressure, diastolic 72 mm[Hg] BP dobson blood pressure, systolic 124 mm[Hg] BP sys pulse rate E&M 64 /min Heart rate temperature E&M 96.8 [degF] Body temp erature weight E&M 147 [lb_av] Weight Measure d blood pressure, diastolic 68 mm[Hg] BP dobson blood pressure, systolic 132 mm[Hg] BP sys pulse rate E&M 57 /min Heart rate temperature E&M 97.8 [degF] Body temp erature weight E&M 147 [lb_av] Weight Measure d Diagnostic Results Date [...] 11 .0-15.0 platelet count 157 THOUSAND/UL 10*3/mm3 316-458 9145/04/20 mean platelet volume 8.9 fL 7.5-12.5 Lab Report: CBC W/DIFF, Comp. Metabolic Panel, Thyroid Stimulating Hormo ... - Chemistry sodium, serum 139 mmol/L 072-384 8148/10/20 carbon dioxide, venous blood 32.2 mmol/L 21.0-32 [...] - Chemi stry cholesterol, serum 200 mg/dL 128-747 4360/11/22 triglyceride, serum, fasting 129 mg/dL 30-200 HDL cholesterol, serum 56 mg/dL 32-96 LDL cholesterol, serum 118 mg/dL 0-130 calcium, serum 9.0 mg/dL 8.5-10.1 Lab Report: MicroAlb Random w/creat/6517 - Urinalysis microalbumin/total urine volume 8 mg/L Units converted. See lab report for original value. microalbumin/creatinine ratio, urine 15 MCG/MG CREAT mg/L <30 Encounters Code Encounter Date Provider Facility CPT-47697 Level 3 Est. Patient 17:54:48 CDT Kylie boyd APRN [facility] CPT-18386 Level 3 Est. Patient 16:26:30 CDT Kina blackmon [facility] CPT-93172 Level 3 New Patient 16:22:01 ACCOUNT DIRECTOR Adam Yates MD [facility] CPT-10752 Level 4 Est. Patient 17:00:48 CDT Kylie boyd [facility] CPT-52239 Level 3 Est. Patient 13:15:54 CDT Kylie Lund [facility] CPT-33837 Level 3 Est. Patient 09:10:11 CDT Kylie Lund [facility] CPT-54965 Level 4 Est. Patient 12:08:30 ACCOUNT DIRECTOR Hope cohn MD [facility] CPT-85709 Level 4 Est. Patient 19:08:42 ACCOUNT DIRECTOR Hope cohn MD [facility] CPT-78842 Level 4 Est. Patient 20:04:51 CDT Hope cohn MD [facility] CPT-05974 Level 3 New Patient 01:46:11 ACCOUNT DIRECTOR Hope landers MD [facility] Procedures Code Procedure Name Date Entry Date Standard Desc ription CPT-J0897 Prolia 60 mg 14:55:42 CDT CPT-30808 Abx/Therapy Injection 14:55:42 CDT CPT-05813 Bone Density - XRAY USE ONLY 10:27:12 CDT 2 CPT-G0439 [facility] Annual Wellness Exam 17:54:53 CDT CPT-65190 Foot, left, comp min 3V - XRAY USE ONLY 12:22:49 CDT CPT-G0009 Administration of Pneumococcal Vaccine 3 12:18:00 CDT CPT-10131 Pneumovax 23 Injection Injectable 25 MCG /0.5ML 12:18:00 CDT CPT-J0897 Prolia 60 mg 14:14:16 ACCOUNT DIRECTOR CPT-34045 Abx/Therapy Injection 14:14:15 ACCOUNT DIRECTOR CPT-20711 Lipid - LAB USE ONLY 10:01:52 ACCOUNT DIRECTOR 2 CPT-38605 Calcium - LAB USE ONLY 10:01:51 ACCOUNT DIRECTOR CPT-74241 Venipuncture Draw Fee 10:01:51 ACCOUNT DIRECTOR CPT-LR Lesion Removal 16:22:01 ACCOUNT DIRECTOR CPT-44323 TSH - LAB USE ONLY 14:26:02 CDT CPT-98074 CMP - LAB USE ONLY 14:26:01 CDT CPT-56656 CBC with Diff - LAB USE ONLY 14:26:01 CDT 2 CPT-26185 Venipuncture Draw Fee 14:26:01 CDT CPT-24340 First Vx - Ix admin for Medicare patients 13:27:08 CDT CPT-32753 Fluzone High-Dose Intramuscular Suspension 11/26 13:27:08 CDT CPT-G0438 Initial Annual Wellness Exam 14:19:57 CD T CPT-G0009 Administration of Pneumococcal Vaccine 9 11:36:25 CDT CPT-63513 Prevnar 13 Intramuscular Suspension 1 1:36:25 CDT CPT-77126 Prevnar 13 Intramuscular Suspension 1 0:40:58 CDT CPT-J0897 Prolia 60 mg 10:37:16 CDT CPT-24952 Abx/Therapy Injection 10:37:16 CDT CPT-J0897 Prolia 60 mg 16:09:34 ACCOUNT DIRECTOR CPT-J0897 Prolia 60 mg 11:10:35 ACCOUNT DIRECTOR CPT-37329 Abx/Therapy Injection 11:10:35 ACCOUNT DIRECTOR CPT-000 Give Appropriate Flu Vaccine 17:01:15 ACCOUNT DIRECTOR 2 CPT-09252 Fluzone High Dose (65+) 15:03:08 ACCOUNT DIRECTOR 02/15 CPT-74005 Immunization Single Admin 15:03:08 ACCOUNT DIRECTOR 2014 CPT-OV Office Visit 15:58:06 CDT CPT-J0897 Prolia 60 mg 08:45:38 CDT CPT-78958 Abx/Therapy Injection 08:45:38 CDT CPT-J3420 Vitamin B12 1000mcg (Cyanocobalamin) 09:26:20 ACCOUNT DIRECTOR CPT-68675 Abx/Therapy Injection 09:26:20 ACCOUNT DIRECTOR CPT-J3420 Vitamin B12 1000mcg (Cyanocobalamin) 09:44:40 ACCOUNT DIRECTOR CPT-35660 Abx/Therapy Injection 09:44:40 ACCOUNT DIRECTOR CPT-J3420 Vitamin B12 1000mcg (Cyanocobalamin) 09:15:54 ACCOUNT DIRECTOR CPT-40536 Abx/Therapy Injection 09:15:54 ACCOUNT DIRECTOR CPT-J3420 Vitamin B12 1000mcg (Cyanocobalamin) 09:46:44 ACCOUNT DIRECTOR CPT-65951 Abx/Therapy Injection 09:46:44 ACCOUNT DIRECTOR CPT-J3420 Vitamin B12 1000mcg (Cyanocobalamin) 09:47:34 ACCOUNT DIRECTOR CPT-77620 Abx/Therapy Injection 09:47:34 ACCOUNT DIRECTOR CPT-J3420 Vitamin B12 1000mcg (Cyanocobalamin) 14:35:50 ACCOUNT DIRECTOR CPT-J3420 Vitamin B12 1000mcg (Cyanocobalamin) 09:25:05 ACCOUNT DIRECTOR CPT-50040 Abx/Therapy Injection 09:25:05 ACCOUNT DIRECTOR CPT-G0008 Administration of Influenza Virus Vaccine 13:36:47 CDT CPT-66991 Fluzone High-Dose Intramuscular Suspension 11/15 13:36:47 CDT CPT-J0897 Prolia 60 mg 08:50:41 CDT CPT-68830 Abx/Therapy Injection 08:50:41 CDT CPT-36739 Bone Density 12:06:12 CDT CPT-68614 Bone Density 08:54:40 CDT CPT-OV Office Visit 15:37:02 CDT CPT-47111 Postop F/U Visit 15:47:49 CDT CPT-17140 Postop F/U Visit 15:21:02 CDT CPT-[facility] Transitional Care Mgmt-High 07:52:27 CDT 20 20/06/01 CPT-46875 Venipuncture Draw Fee 13:51:18 CDT CPT-44864 Venipuncture Draw Fee 10:14:55 ACCOUNT DIRECTOR CPT-84864 Venipuncture Draw Fee 13:39:45 ACCOUNT DIRECTOR CPT-OV Office Visit 15:11:22 ACCOUNT DIRECTOR CPT-47533 Venipuncture Draw Fee 09:20:49 ACCOUNT DIRECTOR CPT-50615 Venipuncture Draw Fee 16:52:15 ACCOUNT DIRECTOR CPT-52890 Venipuncture Draw Fee 10:37:24 ACCOUNT DIRECTOR CPT-53122 Venipuncture Draw Fee 08:21:21 ACCOUNT DIRECTOR CPT-01585 Venipuncture Draw Fee 08:30:20 ACCOUNT DIRECTOR CPT-25856 Venipuncture Draw Fee 14:53:21 ACCOUNT DIRECTOR CPT-82147 Venipuncture Draw Fee 09:40:56 ACCOUNT DIRECTOR CPT-26008 Venipuncture Draw Fee 10:30:47 ACCOUNT DIRECTOR CPT-06379 Venipuncture Draw Fee 10:46:17 ACCOUNT DIRECTOR CPT-08597 Venipuncture Draw Fee 11:12:45 ACCOUNT DIRECTOR CPT-39766 Venipuncture Draw Fee 09:53:33 ACCOUNT DIRECTOR CPT-26662 Venipuncture Draw Fee 11:53:51 ACCOUNT DIRECTOR CPT-40688 Venipuncture Draw Fee 10:33:50 ACCOUNT DIRECTOR CPT-89118 Venipuncture Draw Fee 10:05:01 ACCOUNT DIRECTOR CPT-37190 Venipuncture Draw Fee 14:32:52 ACCOUNT DIRECTOR CPT-14325 Venipuncture Draw Fee 09:46:13 ACCOUNT DIRECTOR CPT-46583 Venipuncture Draw Fee 11:34:27 ACCOUNT DIRECTOR CPT-50283 Venipuncture Draw Fee 13:17:16 ACCOUNT DIRECTOR CPT-15087 Venipuncture Draw Fee 12:05:39 CDT CPT-97025 Venipuncture Draw Fee 12:49:12 CDT CPT-07508 Venipuncture Draw Fee 12:37:18 CDT CPT-45945 Venipuncture Draw Fee 10:57:11 CDT CPT-32636 Venipuncture Draw Fee 13:47:40 CDT CPT-05299 Venipuncture Draw Fee 10:02:17 CDT CPT-55467 TB Tubersol 17:32:32 CDT CPT-OV Office Visit 16:21:53 CDT CPT-OV Office Visit 15:49:22 CDT CPT-OV Office Visit 17:16:31 CDT CPT-OV Office Visit 10:43:31 CDT
--- OUTSIDE RECORDS SUMMARY | 2019-02-09 12:21 | XMS REPORT | Clinical Summary ---
Author Author Renaldo, Florecita Munoz Organization [facility] Address Unknown Phone Unavailable Allergies, Adverse Reactions, [...] GERD 530.81 Resolved Kylie Yokum DIRECTOR OF OUTSIDE SALES Esophageal reflux Health maintenance exam V70.0 Resolved Adolfo Yates MD Routine general medical examination at a health care facility Anemia 285.9 Resolved Kylie Yanet DIRECTOR OF OUTSIDE SALES Anemia, unspecified Personal history of malignant neoplasm of large intestine V10.05 Active Adam Yates MD Personal history of malignant neoplasm of large intestine Hypomagnesemia 275.2 Resolved Kylie Yanet [employer]OR OF OUT[employer] SALES Disorders of magnesium metabolism Weakness 780.79 Resolved [...] scalp 706.2 Resolved Kylie Yokum DIRECTOR OF OUTSIDE SALES Sebaceous cyst Cervical lymphadenopathy, anterior, left 785.6 Resolv ed Kylie Yokum DIRECTOR OF OUT[employer] SALES Enlargement of lymph nodes Need for prophylactic vaccination and inoculation against in fluenza V04.81 Resolved Adam Yates MD Need for prophylactic vaccination and inoculation against influenza Preventive health care V70.0 Active Kylie Yokum DIRECTOR OF OUT[employer] SALES Routine general medical examination at a health care facility Thyroid nodule, left 241.0 Active Kylie Yokum A PRN Nontoxic uninodular goiter Screening mammogram V76.12 Active Kylie Yokum AP RN Other screening mammogram Mandy 706.2 Resolved Kylie Yokum DIRECT[employer] OUT[employer] SALES Sebaceous cyst Colon cancer, ascending 153.6 Resolved Kylie Yok um DIRECTOR OF OUT[employer]IDE SALES Malignant neoplasm of ascending colon Foot pain, left 729.5 Active Sulema Naff [employer]BER Pain in limb Splinter 919.6 Active Kylie Yokum DIRECTOR OF OUT[employer] SALES Superficial foreign body (splinter) of other, multiple, and unspecified sites, without major open wound and without mention of infection Rash 782.1 Active Kylie Yokum DIRECTOR OF OUTSIDE SALES R aur[place] and other nonspecific skin eruption ABDOMINAL PAIN, RIGHT LOWER QUADRANT ICD-789.03 Inactive Kina Joshua DIRECTOR OF OUTSIDE SALES ADENOCARCINOMA, COLON, 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 Dick Yates MD ABDOMINAL PAIN, GENERALIZED ICD-789.07 Inactive Hope Benavidez MD PhD FEVER UNSPECIFIED ICD-780.60 Inactive Hope cohn MD PhD UNSPECIFIED VENOUS INSUFFICIENCY ICD-459.81 [place] ctive Adam Yates MD ADENOCARCINOMA, 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 Inac tive Hope Benavidez MD PhD Hyperkalemia ICD-276.7 Inactive Hope Benavidez MD PhD GERD ICD-530.81 Inactive Kylie Yanet DIRECTOR OF OUT[employer]IDE SALES 2015 Health maintenance exam ICD-V70.0 Bam Yates MD Anemia ICD-285.9 Inactive Kylie Holt DIRECTOR OF OUTSIDE SALES 07/24 Hypomagnesemia ICD-275.2 Inactive Kylie Yokum DIRECTOR OF OUTSIDE SALES Weakness ICD-780.79 Inactive Hope Benavidez MD P hD Aftercare following surgery of the teeth,oral cavity a nd digestive system, NEC ICD-V58.75 Inactive Adam Yates MD Colon cancer ICD-153.9 Inactive Adam luna MD Asymptomatic postmenopausal status (age-related) (natural) I CD-V49.81 Inactive Hope Benavidez MD PhD Diarrhea, functional ICD-564.5 Inactive Selena Yates MD Dysuria ICD-788.1 Inactive Hope Benaviedz MD PhD 201 05/19/01 Adenocarcinoma, ascending colon ICD-153.6 Inac tive Adam Yates MD Sebaceous cyst, scalp ICD-706.2 Inactive Tracy Holt DIRECTOR OF OUTSIDE SALES Cervical lymphadenopathy, anterior, left ICD-785.6 Inactive Kylie Holt DIRECTOR OF OUTSIDE SALES Need for prophylactic vaccination and inoculation against in fluenza ICD-V04.81 Inactive Adam Yates MD Mandy ICD-706.2 Inactive Kylie Holt AMY 07/20 Colon cancer, ascending ICD-153.6 Inactive Gabbi Escalonagabbioliver AMY Medication List Medication Instructions Start Date Stop Date Generic Name NDC Status Provider Patient Instruction VOLTAREN 1 % TRANSDERMAL GEL apply q 6-8 hour to left arm as needed for pain DICLOFENAC SODIUM 76320914798 Active Kylie Holt AMY Active COQ10 100 MG ORAL CAPSULE 1 daily COENZYME Q10 540429 85034 Active LETY Nation Active VITAMIN D3 2000 UNIT ORAL CAPSULE Melaleuca-One daily CHOLECALCIFEROL 94557049184 Active Kylie Holt APRN Active PROBIOTIC DAILY ORAL CAPSULE Take one daily PROBIO TIC PRODUCT 97762410089 Active Kylie Holt AMY Active IRON 325 (65 Fe) MG ORAL TABLET 1 every other day FERROUS SULFATE 42490140898 No Longer Active Kylie Holt AMY Active FLORANEX ORAL PACKET 1 pack three times daily, for bowel health LACTOBACILLUS 66778779155 No Longer Active Kylie Holt AMY Active LOMOTIL 2.5-0.025 MG ORAL TABLET 1 tab by mouth prn 23/10/23 DIPHENOXYLATE-ATROPINE 42545291276 No Longer Active Kylie Holt DIRECTOR OF OUTSIDE SALES Active MAGNESIUM GLUCONATE 250 MG ORAL TABLET 1 tab tid 23/10/23 MAGNESIUM GLUCONATE 81781205397 No Longer Active Kylie Holt DIRECTOR OF OUTSIDE SALES Active CYANOCOBALAMIN 1000 MCG/ML INJECTION SOLUTION 1 injection ev ruben 2 weeks CYANOCOBALAMIN 49981766718 No Longer Active Kylie boyd DIRECTOR OF OUT[employer] SALES Active ATENOLOL 25 MG ORAL TABLET 1/2 pill by mouth daily, fo r headaches, blood pressure ATENOLOL 94387676459 Active Kylie Holt DIRECTOR [employer] SALES Active PROPRANOLOL HCL 80 MG ORAL TABLET 1 tab tue. and thur. PROPRANOLOL HCL 45134538297 No Longer Active Hope Benavidez MD PhD A ctive VITAMIN D3 4000 IU 1 tab 3 times daily VITAMIN D3 4000 IU No Longer Active Hope Benavidze MD PhD Active BACTRIM DS 800-160 MG ORAL TABLET 1 pill by mouth twice claudio y, for UTI SULFAMETHOXAZOLE-TRIMETHOPRIM 49350172817 No Longer Active Hope Benavidez MD PhD Active PROLIA 60 MG/ML SUBCUTANEOUS SOLUTION 1 shot every 6 months for osteoprosis DENOSUMAB 72516103619 Active Hope Benavidez MD PhD Active CALCIUM + D + K 750-500-40 MG-UNT-MCG ORAL TABLET 1 tab by m harvinder twice daily CALCIUM-VITAMIN D-VITAMIN K 81460327037 Active Hope valdez MD PhD Active DAILY VALUE MULTIVITAMIN ORAL TABLET 1 tab by mouth twice daily 201 05/16/14 MULTIPLE VITAMIN 40354069352 Active Hope Benavidez MD PhD Acti ve FISH OIL 306 MG CAPS 1 tab by mouth three times daily OMEGA-3 FATTY ACIDS 98644374783 Active Hope Benavidez MD PhD Active LUTEIN 10 MG ORAL TABLET 1 tab daily LUTEIN 97554876 408 Active Hope Benavidez MD PhD Active TRIAMTERENE-HCTZ 37.5-25 MG ORAL TABLET 1 tab by mouth daily 10/22 TRIAMTERENE-HCTZ 16876596278 Active LETY Rossi CYCLOBENZAPRINE HCL 10 MG ORAL TABLET 1 tablet by mout h three times daily as needed for headaches CYCLOBENZAPRINE HCL 73717713102 No Longer Active Adam Yates MD Active OMEPRAZOLE 20 MG ORAL CAPSULE DELAYED RELEASE 1 tablet by mo [facility] daily for GERD OMEPRAZOLE 96974356869 No Longer Active Adam Yates MD Active ZOFRAN 8 MG ORAL TABLET 1 tab by mouth every 12 hours prn 4 ONDANSETRON HCL 30522721800 No Longer Active Adam Yates MD Active PHENADOZ 25 MG RECTAL SUPPOSITORY 1 every 4 hrs. PRN 2 PROMETHAZINE HCL 54531387565 No Longer Active Adam Yates MD A ctive POTASSIUM CHLORIDE 20 MEQ ORAL PACKET by mouth twice a day prn 2 POTASSIUM CHLORIDE 61353220458 No Longer Active Adam Carpenter MD Active PROMETHAZINE HCL 25 MG ORAL TABLET 1 Q. 4 hr. PRN PROMETHAZINE HCL 83893106948 No Longer Active Adam Yates MD Active INNOPRAN XL 120 MG ORAL CAPSULE EXTENDED RELEASE 24 HO UR Take one by mouth daily PROPRANOLOL HCL SR BEADS 40739394392 No Longer Active Adam Yates MD Active FLAGYL 500 MG ORAL TABLET 1 pill by mouth three times daily, for diarrhea METRONIDAZOLE 04620691299 No Longer Active Hope landers MD PhD Active DYAZIDE 37.5-25 MG ORAL CAPSULE 1 qd TRIA MTERENE-HCTZ 10761350801 No Longer Active Hope Benavidez MD PhD Active PROZAC 20 MG ORAL CAPSULE 1 q d FLUOXETINE HCL 62703946290 No Longer Active Hope Benavidez MD PhD Active SIMVASTATIN 40 MG ORAL TABLET 1 qd SIMVAS TATIN 39679504031 No Longer Active Adam Yates MD Active MELOXICAM 15 MG ORAL TABLET 1 qd MELOXICAM 13366105429 No Longer Active Adam Yates MD Active IMODIUM A-D 2 MG ORAL TABLET 2 onset at diarrhea and prn. LOPERAMIDE HCL 72827086386 Active Hope Benavidez MD PhD Active EXCEDRIN EXTRA STRENGTH 250-250-65 MG ORAL TABLET 1-2 q6h WY N headache [id number] 73263780878 Active Hope Benavidez MD PhD Active FLAGYL 500 MG ORAL TABLET 1 qid METRONIDAZOL E 04715709969 No Longer Active Adam Yates MD Active LEVAQUIN 750 MG ORAL TABLET 1 qd LEVOFLOXAC IN 32291598792 No Longer Active Adam Yates MD Active ADULT ASPIRIN LOW STRENGTH 81 MG ORAL TABLET DISINTEGRATING 1 qd ASPIRIN 47864378338 Active Hope Benavidez MD PhD Active LEVAQUIN 750 MG ORAL TABLET 1 qd LEVAQUIN 750 MG ORAL TABLET 805746 LEVOFLOXACIN Inactive FLAGYL 500 MG ORAL TABLET 1 qid FLAGYL 500 MG ORAL TABLET 615339 METRONIDAZOLE Inactive MELOXICAM 15 MG ORAL TABLET 1 qd MELOXICAM 15 MG ORAL TABLET 875573 MELOXICAM Inactive SIMVASTATIN 40 MG ORAL TABLET 1 qd SIMVASTATIN 40 MG ORAL TABLET 513551 SIMVASTATIN Inactive PROZAC 20 MG ORAL CAPSULE 1 q d PROZAC 20 MG ORAL CAPSULE 687518 FLUOXETINE HCL Inactive DYAZIDE 37.5-25 MG ORAL CAPSULE 1 qd 5 DYAZIDE 37.5-25 MG ORAL CAPSULE 026663 TRIAMTERENE-HCTZ Inactive INNOPRAN XL 120 MG ORAL CAPSULE EXTENDED RELEASE 24 HO UR Take one by mouth daily INNOPRAN XL 120 MG ORAL CAPSULE EXTENDED RELEASE 24 HOUR PROPRANOLOL HCL SR BEADS Inactive PROMETHAZINE HCL 25 MG ORAL TABLET 1 Q. 4 hr. PRN 2013 PROMETHAZINE HCL 25 MG ORAL TABLET 630661 PROMETHAZINE HCL Inactive POTASSIUM CHLORIDE 20 MEQ ORAL PACKET by mouth twice a day prn 2 POTASSIUM CHLORIDE 20 MEQ ORAL PACKET 2686057 POTASSIUM CHLORIDE Inactive PHENADOZ 25 MG RECTAL SUPPOSITORY 1 every 4 hrs. PRN 2 PHENADOZ 25 MG RECTAL SUPPOSITORY 942799 PROMETHAZINE HCL Inactive ZOFRAN 8 MG ORAL TABLET 1 tab by mouth every 12 hours prn 4 ZOFRAN 8 MG ORAL TABLET 570501 ONDANSETRON HCL Inactive OMEPRAZOLE 20 MG ORAL CAPSULE DELAYED RELEASE 1 tablet by mo uth daily for GERD OMEPRAZOLE 20 MG ORAL CAPSULE DELAYED RELEASE 19 8051 OMEPRAZOLE Inactive CYCLOBENZAPRINE HCL 10 MG ORAL TABLET 1 tablet by mout h three times daily as needed for headaches CYCLOBENZAPRINE HCL 10 MG ORAL TABLET 884221 CYCLOBENZAPRINE HCL Inactive VITAMIN D3 4000 IU 1 tab 3 times daily VITAMIN D3 4000 IU Inactive PROPRANOLOL HCL 80 MG ORAL TABLET 1 tab tue. and thur. PROPRANOLOL HCL 80 MG ORAL TABLET 376870 PROPRANOLOL HCL Inacti ve CYANOCOBALAMIN 1000 MCG/ML INJECTION SOLUTION 1 injection ev ruben 2 weeks CYANOCOBALAMIN 1000 MCG/ML INJECTION SOLUTION 30 9594 CYANOCOBALAMIN Inactive MAGNESIUM GLUCONATE 250 MG ORAL TABLET 1 tab tid 20 23/10/23 MAGNESIUM GLUCONATE 250 MG ORAL TABLET 298642 MAGNESIUM GLUCONATE Inactive LOMOTIL 2.5-0.025 MG ORAL TABLET 1 tab by mouth prn 20 23/10/23 LOMOTIL 2.5-0.025 MG ORAL TABLET 4211879 DIPHENOXYLATE-ATROPINE Inac tive FLORANEX ORAL PACKET 1 pack three times daily, for bowel health FLORANEX ORAL PACKET LACTOBACILLUS Inactive IRON 325 (65 Fe) MG ORAL TABLET 1 every other day 2015 IRON 325 (65 Fe) MG ORAL TABLET 113858 FERROUS SULFATE Inactive FLAGYL 500 MG ORAL TABLET 1 pill by mouth three times daily, for diarrhea FLAGYL 500 MG ORAL TABLET 176602 METRONIDAZOLE I nactive BACTRIM DS 800-160 MG ORAL TABLET 1 pill by mouth twice claudio y, for UTI BACTRIM DS 800-160 MG ORAL TABLET 690112 SULFAMETHOXAZOLE-TRIMETHOPRIM Inactive Advance Directives Directive Description Start [...] ... - Chemistry sodium, serum 138 mmol/L 404-129 6750/12/15 potassium, serum 4.0 mmol/L 3.5-5.2 chloride, serum [...] 11 .0-15.0 platelet count 157 THOUSAND/UL 10*3/mm3 104-565 3808/04/20 mean platelet volume 8.9 fL 7.5-12.5 Lab Report: CEA - Serology carcinoembryonic antigen 0.9 ng/mL Encounters Code Encounter Date Provider Facility CPT-82287 Level 2 Est. Patient 14:27:16 BEAM RACKER Kylie boyd [facility] CPT-60310 Level 3 Est. Patient 17:54:48 CDT Kylie boyd [facility] CPT-55776 Level 3 Est. Patient 16:26:30 CDT Kina blackmon [facility] CPT-41154 Level 3 New Patient 16:22:01 BEAM RACKER Adam Yates MD [facility] CPT-79134 Level 4 Est. Patient 17:00:48 CDT [facility] CPT-29613 Level 3 Est. Patient 13:15:54 CDT Kylie boyd [facility] CPT-37057 Level 3 Est. Patient 09:10:11 CDT Kylie boyd [facility] CPT-94354 Level 4 Est. Patient 12:08:30 BEAM RACKER Hope cohn MD [facility] CPT-18037 Level 4 Est. Patient 19:08:42 BEAM RACKER Hope cohn MD PhD [facility] CPT-82230 Level 4 Est. Patient 20:04:51 CDT Hope cohn MD PhD [facility] CPT-91613 Level 3 New Patient 01:46:11 BEAM RACKER Hope landers MD PhD [facility] Procedures Code Procedure Name Date Entry Date Standard Desc ription CPT-17633 Microalbumin - LAB USE ONLY 09:41:32 BEAM RACKER 20 23/01/15 CPT-84452 Free T4 - LAB USE ONLY 09:41:32 BEAM RACKER CPT-63980 TSH - LAB USE ONLY 09:41:32 BEAM RACKER CPT-79475 BMP - LAB USE ONLY 09:41:32 BEAM RACKER CPT-32468 Venipuncture Draw Fee 09:41:32 BEAM RACKER CPT-08859 First Vx - Ix admin for Medicare patients 11:19:30 CDT CPT-73522 Fluzone High-Dose Intramuscular Suspension 12/07 11:19:30 CDT CPT-J0897 Prolia 60 mg 14:55:42 CDT CPT-66451 Abx/Therapy Injection 14:55:42 CDT CPT-52604 Bone Density - XRAY USE ONLY 10:27:12 CDT 2 CPT-G0439 Subsequent Annual Wellness Exam 17:54:53 CDT CPT-23748 Foot, left, comp min 3V - XRAY USE ONLY 12:22:49 CDT CPT-G0009 Administration of Pneumococcal Vaccine 3 12:18:00 CDT CPT-11112 Pneumovax 23 Injection Injectable 25 MCG /0.5ML 12:18:00 CDT CPT-J0897 Prolia 60 mg 14:14:16 BEAM RACKER CPT-31496 Abx/Therapy Injection 14:14:15 BEAM RACKER CPT-36345 Lipid - LAB USE ONLY 10:01:52 BEAM RACKER 2 CPT-71481 Calcium - LAB USE ONLY 10:01:51 BEAM RACKER CPT-86663 Venipuncture Draw Fee 10:01:51 BEAM RACKER CPT-LR Lesion Removal 16:22:01 BEAM RACKER CPT-91372 TSH - LAB USE ONLY 14:26:02 CDT CPT-38669 CMP - LAB USE ONLY 14:26:01 CDT CPT-57572 CBC with Diff - LAB USE ONLY 14:26:01 CDT 2 CPT-92129 Venipuncture Draw Fee 14:26:01 CDT CPT-25436 First Vx - Ix admin for Medicare patients 13:27:08 CDT CPT-69386 Fluzone High-Dose Intramuscular Suspension 11/26 13:27:08 CDT CPT-G0438 Initial Annual Wellness Exam 14:19:57 CD T CPT-G0009 Administration of Pneumococcal Vaccine 9 11:36:25 CDT CPT-85588 Prevnar 13 Intramuscular Suspension 1 1:36:25 CDT CPT-05974 Prevnar 13 Intramuscular Suspension 1 0:40:58 CDT CPT-J0897 Prolia 60 mg 10:37:16 CDT CPT-73797 Abx/Therapy Injection 10:37:16 CDT CPT-J0897 Prolia 60 mg 16:09:34 BEAM RACKER CPT-J0897 Prolia 60 mg 11:10:35 BEAM RACKER CPT-99665 Abx/Therapy Injection 11:10:35 BEAM RACKER CPT-000 Give Appropriate Flu Vaccine 17:01:15 BEAM RACKER 2 CPT-16473 Fluzone High Dose (65+) 15:03:08 BEAM RACKER 02/15 CPT-54190 Immunization Single Admin 15:03:08 BEAM RACKER 2014 CPT-OV Office Visit 15:58:06 CDT CPT-J0897 Prolia 60 mg 08:45:38 CDT CPT-66507 Abx/Therapy Injection 08:45:38 CDT CPT-J3420 Vitamin B12 1000mcg (Cyanocobalamin) 09:26:20 BEAM RACKER CPT-14916 Abx/Therapy Injection 09:26:20 BEAM RACKER CPT-J3420 Vitamin B12 1000mcg (Cyanocobalamin) 09:44:40 BEAM RACKER CPT-60234 Abx/Therapy Injection 09:44:40 BEAM RACKER CPT-J3420 Vitamin B12 1000mcg (Cyanocobalamin) 09:15:54 BEAM RACKER CPT-42784 Abx/Therapy Injection 09:15:54 BEAM RACKER CPT-J3420 Vitamin B12 1000mcg (Cyanocobalamin) 09:46:44 BEAM RACKER CPT-33151 Abx/Therapy Injection 09:46:44 BEAM RACKER CPT-J3420 Vitamin B12 1000mcg (Cyanocobalamin) 09:47:34 BEAM RACKER CPT-19736 Abx/Therapy Injection 09:47:34 BEAM RACKER CPT-J3420 Vitamin B12 1000mcg (Cyanocobalamin) 14:35:50 BEAM RACKER CPT-J3420 Vitamin B12 1000mcg (Cyanocobalamin) 09:25:05 BEAM RACKER CPT-78526 Abx/Therapy Injection 09:25:05 BEAM RACKER CPT-G0008 Administration of Influenza Virus Vaccine 13:36:47 CDT CPT-65637 Fluzone High-Dose Intramuscular Suspension 11/15 13:36:47 CDT CPT-J0897 Prolia 60 mg 08:50:41 CDT CPT-30687 Abx/Therapy Injection 08:50:41 CDT CPT-82544 Bone Density 12:06:12 CDT CPT-71827 Bone Density 08:54:40 CDT CPT-OV Office Visit 15:37:02 CDT CPT-90764 Postop F/U Visit 15:47:49 CDT CPT-67739 Postop F/U Visit 15:21:02 CDT CPT-TCMH Transitional Care Mgmt-High 07:52:27 CDT 20 20/06/01 CPT-17879 Venipuncture Draw Fee 13:51:18 CDT CPT-99355 Venipuncture Draw Fee 10:14:55 BEAM RACKER CPT-99056 Venipuncture Draw Fee 13:39:45 BEAM RACKER CPT-OV Office Visit 15:11:22 BEAM RACKER CPT-39200 Venipuncture Draw Fee 09:20:49 BEAM RACKER CPT-55511 Venipuncture Draw Fee 16:52:15 BEAM RACKER CPT-22278 Venipuncture Draw Fee 10:37:24 BEAM RACKER CPT-31059 Venipuncture Draw Fee 08:21:21 BEAM RACKER CPT-01053 Venipuncture Draw Fee 08:30:20 BEAM RACKER CPT-66959 Venipuncture Draw Fee 14:53:21 BEAM RACKER CPT-42547 Venipuncture Draw Fee 09:40:56 BEAM RACKER CPT-73508 Venipuncture Draw Fee 10:30:47 BEAM RACKER CPT-70415 Venipuncture Draw Fee 10:46:17 BEAM RACKER CPT-07734 Venipuncture Draw Fee 11:12:45 BEAM RACKER CPT-64624 Venipuncture Draw Fee 09:53:33 BEAM RACKER CPT-55123 Venipuncture Draw Fee 11:53:51 BEAM RACKER CPT-38741 Venipuncture Draw Fee 10:33:50 BEAM RACKER CPT-62034 Venipuncture Draw Fee 10:05:01 BEAM RACKER CPT-36783 Venipuncture Draw Fee 14:32:52 BEAM RACKER CPT-61229 Venipuncture Draw Fee 09:46:13 BEAM RACKER CPT-80548 Venipuncture Draw Fee 11:34:27 BEAM RACKER CPT-87544 Venipuncture Draw Fee 13:17:16 BEAM RACKER CPT-42985 Venipuncture Draw Fee 12:05:39 CDT CPT-38159 Venipuncture Draw Fee 12:49:12 CDT CPT-22766 Venipuncture Draw Fee 12:37:18 CDT CPT-31619 Venipuncture Draw Fee 10:57:11 CDT CPT-03789 Venipuncture Draw Fee 13:47:40 CDT CPT-43547 Venipuncture Draw Fee 10:02:17 CDT CPT-62627 TB Tubersol 17:32:32 CDT CPT-OV Office Visit 16:21:53 CDT CPT-OV Office Visit 15:49:22 CDT CPT-OV Office Visit 17:16:31 CDT CPT-OV Office Visit 10:43:31 CDT
--- OUTSIDE RECORDS SUMMARY | 2019-02-09 12:21 | XMS REPORT | Clinical Summary ---
Author Author Renaldo, Florecita Munoz Organization [facility] Address Unknown Phone Unavailable Allergies, Adverse Reactions, [...] Hyperpotassemia GERD 530.81 Resolved Kylie Yokum MANAGER INFORMATION Esophageal reflux Health maintenance exam V70.0 Resolved Adolfo Yates MD Routine general medical examination at a health care facility Anemia 285.9 Resolved Kylie Holt MANAGER INFORMATION Anemia, unspecified Personal history of malignant neoplasm of large intestine V10.05 Active Adam Yates MD Personal history of malignant neoplasm of large intestine Hypomagnesemia 275.2 Resolved Kylie Holt MANAGER INFORMATION Disorders of magnesium metabolism Weakness 780.79 Resolved [...] cyst, scalp 706.2 Resolved Kylie Yokum MANAGER INFORMATION Sebaceous cyst Cervical lymphadenopathy, anterior, left 785.6 Resolv ed Kylie Yokum MANAGER INFORMATION Enlargement of lymph nodes Need for prophylactic vaccination and inoculation against in fluenza V04.81 Resolved Adam Yates MD Need for prophylactic vaccination and inoculation against influenza Preventive health care V70.0 Active Kylie Yokum MANAGER INFORMATION Routine general medical examination at a health care facility Thyroid nodule, left 241.0 Active Kylie Yokum A PRN Nontoxic uninodular goiter Screening mammogram V76.12 Active Kylie Yokum AP RN Other screening mammogram Mandy 706.2 Resolved Kylie Yokum MANAGER INFORMATION Sebaceous cyst Colon cancer, ascending 153.6 Resolved Kylie Yok um MANAGER INFORMATION Malignant neoplasm of ascending colon Foot pain, left 729.5 Active Sulema Schwarz [employer]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 Pain in limb Splinter 919.6 Active Kylie Yokum MANAGER INFORMATION Superficial foreign body (splinter) of other, multiple, and unspecified sites, without major open wound and without mention of infection ABDOMINAL PAIN, RIGHT LOWER QUADRANT ICD-789.03 Inactive Kina Joshua MANAGER INFORMATION ADENOCARCINOMA, COLON, 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 Dick Yates MD ABDOMINAL PAIN, GENERALIZED ICD-789.07 Inactive Hope Benavidez MD PhD FEVER UNSPECIFIED ICD-780.60 Inactive Hope cohn MD PhD UNSPECIFIED VENOUS INSUFFICIENCY ICD-459.81 Elda ctive Adam Yates MD ADENOCARCINOMA, 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 Inac tive Hope Benavidez MD PhD Hyperkalemia ICD-276.7 Inactive Hope Benavidez MD PhD GERD ICD-530.81 Inactive Kylie Holt MANAGER INFORMATION 2015 Health maintenance exam ICD-V70.0 Inactive Adolfo Yates MD Anemia ICD-285.9 Inactive Kylie Holt MANAGER INFORMATION 07/24 Hypomagnesemia ICD-275.2 Inactive Kylie Holt MANAGER INFORMATION Weakness ICD-780.79 Inactive Hope Benavidez MD P [...] cyst, scalp ICD-706.2 Inactive Tracy Holt MANAGER INFORMATION Cervical lymphadenopathy, anterior, left ICD-785.6 Inactive Kylie Holt MANAGER INFORMATION Need for prophylactic vaccination and inoculation against in fluenza ICD-V04.81 Inactive Adam Yates MD Mandy ICD-706.2 Inactive Kylie Holt MANAGER INFORMATION 07/20 Colon cancer, ascending ICD-153.6 Inactive Bravo Holt MANAGER INFORMATION Medication List Medication Instructions Start Date Stop Date Generic Name NDC Status Provider Patient Instruction COQ10 100 MG ORAL CAPS 1 daily COENZYME Q10 [id number] 20 Active LETY Nation Active VITAMIN D3 2000 UNIT ORAL CAPS Melaleuca-One daily CHOLECALCIFEROL 89954392043 Active Kylie Holt APRN Active PROBIOTIC DAILY ORAL CAPS Take one daily PROBIOTIC PRODUCT 32297012665 Active Kylie Holt APRN Active IRON 325 (65 FE) MG TABS 1 every other day FERR OUS SULFATE 88053422607 No Longer Active Kylie Holt APRN Active FLORANEX PACK 1 pack three times daily, for bowel health LACTOBACILLUS 31422113020 No Longer Active Kylie Holt APRN Active LOMOTIL 2.5-0.025 MG TABS 1 tab by mouth prn 4 DIPHENOXYLATE-ATROPINE 08366178349 No Longer Active Kylie Holt APRN Active MAGNESIUM GLUCONATE 250 MG TABS 1 tab tid 4 MAGNESIUM GLUCONATE 95573948168 No Longer Active Kylie Lundum MANAGER INFORMATION Active CYANOCOBALAMIN 1000 MCG/ML INJ SOLN 1 injection every 2 weeks 20 20/01/03 CYANOCOBALAMIN 35114263731 No Longer Active Kylie Holt APRN Active ATENOLOL 25 MG ORAL TABS 1/2 pill by mouth daily, for headac hes, blood pressure ATENOLOL 19392389865 Active Kylieshubham Holt MANAGER INFORMATION Active PROPRANOLOL HCL 80 MG TABS 1 tab tue. and thur. 04/10 PROPRANOLOL HCL 09103737100 No Longer Active Hope Benavidez MD PhD A ctive VITAMIN D3 4000 IU 1 tab 3 times daily VITAMIN D3 4000 IU No Longer Active Hope Benavidez MD PhD Active BACTRIM DS 800-160 MG TABS 1 pill by mouth twice daily, for UTI SULFAMETHOXAZOLE-TRIMETHOPRIM 18182417873 No Longer Active A attila Benavidez MD PhD Active PROLIA 60 MG/ML SOLN 1 shot every 6 months for osteoprosis DENOSUMAB 99229312863 Active Hope Benavidez MD PhD Active CALCIUM + D + K 750-500-40 MG-UNT-MCG TABS 1 tab by mouth tw ice daily CALCIUM-VITAMIN D-VITAMIN K 73265404017 Active Hope landers MD PhD Active DAILY VALUE MULTIVITAMIN TABS 1 tab by mouth twice daily MULTIPLE VITAMIN 62066204315 Active Hope Benavidez MD PhD Active FISH OIL 306 MG CAPS 1 tab by mouth three times daily OMEGA-3 FATTY ACIDS 56621656526 Active Hope Benavidez MD PhD Active LUTEIN 10 MG TABS 1 tab daily LUTEIN 58817138832 Act cash Hope Benavidez MD PhD Active TRIAMTERENE-HCTZ 37.5-25 MG TABS 1 tab by mouth daily TRIAMTERENE-HCTZ 14699766772 Active Kylie Holt APRN Active CYCLOBENZAPRINE HCL 10 MG TABS 1 tablet by mouth three times daily as needed for headaches CYCLOBENZAPRINE HCL 49773012041 No Longe r Active dAam Yates MD Active OMEPRAZOLE 20 MG CPDR 1 tablet by mouth daily for GERD OMEPRAZOLE 96049380352 No Longer Active Adam Yates MD A ctive ZOFRAN 8 MG TABS 1 tab by mouth every 12 hours prn 201 05/16/09 ONDANSETRON HCL 93378684628 No Longer Active Adam Yates MD Active PHENADOZ 25 MG SUPP 1 every 4 hrs. PRN PROMETHA ZINE HCL 45013464884 No Longer Active Adam Yates MD Active POTASSIUM CHLORIDE 20 MEQ PACK by mouth twice a day prn POTASSIUM CHLORIDE 00124151794 No Longer Active Adam Yates MD Active PROMETHAZINE HCL 25 MG TABS 1 Q. 4 hr. PRN PROM ETHAZINE HCL 92389261756 No Longer Active Adam Yates MD Active INNOPRAN XL 120 MG [id number] Take one by mouth daily 2 PROPRANOLOL HCL SR BEADS 63090661333 No Longer Active Adam Yates MD A ctive FLAGYL 500 MG TABS 1 pill by mouth three times daily, for diarrh ea METRONIDAZOLE 69357517092 No Longer Active Hope Benavidez MD PhD Active DYAZIDE 37.5-25 MG CAPS 1 qd TRIAMTERENE-HC TZ 97213274362 No Longer Active Hope Benavidez MD PhD Active PROZAC 20 MG CAPS 1 q d FLUOXETINE HCL 44030 385515 No Longer Active Hope Benavidez MD PhD Active SIMVASTATIN 40 MG TABS 1 qd SIMVASTATIN 004 74133059 No Longer Active Adam Yates MD Active MELOXICAM 15 MG TABS 1 qd MELOXICAM 9927025 3461 No Longer Active Adam Yates MD Active IMODIUM A-D 2 MG TABS 2 onset at diarrhea and prn. LOPERAMIDE HCL 13748333206 Active Hope Benavidez MD PhD Active EXCEDRIN EXTRA STRENGTH 250-250-65 MG TABS 1-2 q6h PRN headache 201 04/16/21 [id number] 53898512312 Active Hope Benavidez MD PhD Active FLAGYL 500 MG TABS 1 qid METRONIDAZOLE 52314 697700 No Longer Active Adam Yates MD Active LEVAQUIN 750 MG TABS 1 qd LEVOFLOXACIN 5486 9522879 No Longer Active Adam Yates MD Active ADULT ASPIRIN LOW STRENGTH 81 MG TBDP 1 qd A SPIRIN 62361240620 Active Hope Benavidez MD PhD Active LEVAQUIN 750 MG TABS 1 qd LEVAQUIN 750 MG T ABS 947225 LEVOFLOXACIN Inactive FLAGYL 500 MG TABS 1 qid FLAGYL 500 MG TABS 005041 METRONIDAZOLE Inactive MELOXICAM 15 MG TABS 1 qd MELOXICAM 15 MG T ABS 171161 MELOXICAM Inactive SIMVASTATIN 40 MG TABS 1 qd SIMVASTATIN 40 MG TABS 190754 SIMVASTATIN Inactive PROZAC 20 MG CAPS 1 q d PROZAC 20 MG CAPS 31 0385 FLUOXETINE HCL Inactive DYAZIDE 37.5-25 MG CAPS 1 qd DYAZIDE 37.5 -25 MG CAPS 030777 TRIAMTERENE-HCTZ Inactive INNOPRAN XL 120 MG [id number] Take one by mouth daily 2 INNOPRAN XL 120 MG [id number] PROPRANOLOL HCL SR BEADS Inactive PROMETHAZINE HCL 25 MG TABS 1 Q. 4 hr. PRN PROMETHAZINE HCL 25 MG TABS 331580 PROMETHAZINE HCL Inactive POTASSIUM CHLORIDE 20 MEQ PACK by mouth twice a day prn POTASSIUM CHLORIDE 20 MEQ PACK 0905690 POTASSIUM CHLORIDE Inactive PHENADOZ 25 MG SUPP 1 every 4 hrs. PRN PHENADOZ 2 5 MG SUPP 976129 PROMETHAZINE HCL Inactive ZOFRAN 8 MG TABS 1 tab by mouth every 12 hours prn 201 05/16/09 ZOFRAN 8 MG TABS 003509 ONDANSETRON HCL Inactive OMEPRAZOLE 20 MG CPDR 1 tablet by mouth daily for GERD OMEPRAZOLE 20 MG CPDR 023401 OMEPRAZOLE Inactive CYCLOBENZAPRINE HCL 10 MG TABS 1 tablet by mouth three times daily as needed for headaches CYCLOBENZAPRINE HCL 10 MG TABS 849574 CYCLOBENZAPRINE HCL Inactive VITAMIN D3 4000 IU 1 tab 3 times daily VITAMIN D3 4000 IU Inactive PROPRANOLOL HCL 80 MG TABS 1 tab tue. and thur. 04/10 PROPRANOLOL HCL 80 MG TABS 408866 PROPRANOLOL HCL Inactive CYANOCOBALAMIN 1000 MCG/ML INJ SOLN 1 injection every 2 weeks 20 20/01/03 CYANOCOBALAMIN 1000 MCG/ML INJ SOLN 654714 CYANOCOBALAM IN Inactive MAGNESIUM GLUCONATE 250 MG TABS 1 tab tid 4 MAGNESIUM GLUCONATE 250 MG TABS 852158 MAGNESIUM GLUCONATE Inactive LOMOTIL 2.5-0.025 MG TABS 1 tab by mouth prn 4 LOMOTIL 2.5- 0.025 MG TABS 1672166 DIPHENOXYLATE-ATROPINE Inactive FLORANEX PACK 1 pack three times daily, for bowel health FLORANEX PACK LACTOBACILLUS Inactive IRON 325 (65 FE) MG TABS 1 every other day IRON 325 (65 FE) MG TABS 087730 FERROUS SULFATE Inactive FLAGYL 500 MG TABS 1 pill by mouth three times daily, for diarrh ea FLAGYL 500 MG TABS 188535 METRONIDAZOLE Inactive BACTRIM DS 800-160 MG TABS 1 pill by mouth twice daily, for UTI BACTRIM DS 800-160 MG TABS 845555 SULFAMETHOXAZOLE-TRIM ETHOPRIM Inactive Advance Directives Directive Description [...] 11 .0-15.0 platelet count 157 THOUSAND/UL 10*3/mm3 426-773 2930/04/20 mean platelet volume 8.9 fL 7.5-12.5 Lab Report: CBC W/DIFF, Comp. Metabolic Panel, Thyroid Stimulating Hormo ... - Chemistry sodium, serum 139 mmol/L 644-220 0170/10/20 carbon dioxide, venous blood 32.2 mmol/L 21.0-32 [...] - Chemi stry cholesterol, serum 200 mg/dL 297-761 9761/11/22 triglyceride, serum, fasting 129 mg/dL 30-200 HDL cholesterol, serum 56 mg/dL 32-96 LDL cholesterol, serum 118 mg/dL 0-130 calcium, serum 9.0 mg/dL 8.5-10.1 Lab Report: MicroAlb Random w/creat/6517 - Urinalysis microalbumin/total urine volume 8 mg/L Units converted. See lab report for original value. microalbumin/creatinine ratio, urine 15 MCG/MG CREAT mg/L <30 Encounters Code Encounter Date Provider Facility CPT-75872 Level 3 Est. Patient 17:54:48 CDT Kylie boyd [facility] CPT-43661 Level 3 Est. Patient 16:26:30 CDT Kina blackmon [facility] CPT-60297 Level 3 New Patient 16:22:01 CLIENT TECHNOLOGIES SPECIALIST Adam Yates MD [facility] CPT-95199 Level 4 Est. Patient 17:00:48 CDT Kylie Lund [facility][note 3] CPT-85150 Level 3 Est. Patient 13:15:54 CDT Kylie Lund [facility] CPT-20548 Level 3 Est. Patient 09:10:11 CDT Kylie Kevon [facility] CPT-46681 Level 4 Est. Patient 12:08:30 CLIENT TECHNOLOGIES SPECIALIST Hope cohn MD [facility] CPT-71638 Level 4 Est. Patient 19:08:42 CLIENT TECHNOLOGIES SPECIALIST Hope cohn MD [facility] CPT-86693 Level 4 Est. Patient 20:04:51 CDT Hope cohn MD [facility] CPT-99857 Level 3 New Patient 01:46:11 CLIENT TECHNOLOGIES SPECIALIST Hope landers MD PhD [facility] Procedures Code Procedure Name Date Entry Date Standard Desc ription CPT-G0439 [facility] Annual Wellness Exam 17:54:53 CDT CPT-05443 Foot, left, comp min 3V - XRAY USE ONLY 12:22:49 CDT CPT-G0009 Administration of Pneumococcal Vaccine 3 12:18:00 CDT CPT-87749 Pneumovax 23 Injection Injectable 25 MCG /0.5ML 12:18:00 CDT CPT-J0897 Prolia 60 mg 14:14:16 CLIENT TECHNOLOGIES SPECIALIST CPT-67535 Abx/Therapy Injection 14:14:15 CLIENT TECHNOLOGIES SPECIALIST CPT-36958 Lipid - LAB USE ONLY 10:01:52 CLIENT TECHNOLOGIES SPECIALIST 2 CPT-69511 Calcium - LAB USE ONLY 10:01:51 CLIENT TECHNOLOGIES SPECIALIST CPT-35222 Venipuncture Draw Fee 10:01:51 CLIENT TECHNOLOGIES SPECIALIST CPT-LR Lesion Removal 16:22:01 CLIENT TECHNOLOGIES SPECIALIST CPT-87608 TSH - LAB USE ONLY 14:26:02 CDT CPT-83111 CMP - LAB USE ONLY 14:26:01 CDT CPT-83387 CBC with Diff - LAB USE ONLY 14:26:01 CDT 2 CPT-10063 Venipuncture Draw Fee 14:26:01 CDT CPT-25814 First Vx - Ix admin for Medicare patients 13:27:08 CDT CPT-89933 Fluzone High-Dose Intramuscular Suspension 11/26 13:27:08 CDT CPT-G0438 Initial Annual Wellness Exam 14:19:57 CD T CPT-G0009 Administration of Pneumococcal Vaccine 9 11:36:25 CDT CPT-95183 Prevnar 13 Intramuscular Suspension 1 1:36:25 CDT CPT-48275 Prevnar 13 Intramuscular Suspension 1 0:40:58 CDT CPT-J0897 Prolia 60 mg 10:37:16 CDT CPT-20325 Abx/Therapy Injection 10:37:16 CDT CPT-J0897 Prolia 60 mg 16:09:34 CLIENT TECHNOLOGIES SPECIALIST CPT-J0897 Prolia 60 mg 11:10:35 CLIENT TECHNOLOGIES SPECIALIST CPT-36428 Abx/Therapy Injection 11:10:35 CLIENT TECHNOLOGIES SPECIALIST CPT-000 Give Appropriate Flu Vaccine 17:01:15 CLIENT TECHNOLOGIES SPECIALIST 2 CPT-91213 Fluzone High Dose (65+) 15:03:08 CLIENT TECHNOLOGIES SPECIALIST 02/15 CPT-67476 Immunization Single Admin 15:03:08 CLIENT TECHNOLOGIES SPECIALIST 2014 CPT-OV Office Visit 15:58:06 CDT CPT-J0897 Prolia 60 mg 08:45:38 CDT CPT-11739 Abx/Therapy Injection 08:45:38 CDT CPT-J3420 Vitamin B12 1000mcg (Cyanocobalamin) 09:26:20 CLIENT TECHNOLOGIES SPECIALIST CPT-24550 Abx/Therapy Injection 09:26:20 CLIENT TECHNOLOGIES SPECIALIST CPT-J3420 Vitamin B12 1000mcg (Cyanocobalamin) 09:44:40 CLIENT TECHNOLOGIES SPECIALIST CPT-32050 Abx/Therapy Injection 09:44:40 CLIENT TECHNOLOGIES SPECIALIST CPT-J3420 Vitamin B12 1000mcg (Cyanocobalamin) 09:15:54 CLIENT TECHNOLOGIES SPECIALIST CPT-89988 Abx/Therapy Injection 09:15:54 CLIENT TECHNOLOGIES SPECIALIST CPT-J3420 Vitamin B12 1000mcg (Cyanocobalamin) 09:46:44 CLIENT TECHNOLOGIES SPECIALIST CPT-76056 Abx/Therapy Injection 09:46:44 CLIENT TECHNOLOGIES SPECIALIST CPT-J3420 Vitamin B12 1000mcg (Cyanocobalamin) 09:47:34 CLIENT TECHNOLOGIES SPECIALIST CPT-94700 Abx/Therapy Injection 09:47:34 CLIENT TECHNOLOGIES SPECIALIST CPT-J3420 Vitamin B12 1000mcg (Cyanocobalamin) 14:35:50 CLIENT TECHNOLOGIES SPECIALIST CPT-J3420 Vitamin B12 1000mcg (Cyanocobalamin) 09:25:05 CLIENT TECHNOLOGIES SPECIALIST CPT-66071 Abx/Therapy Injection 09:25:05 CLIENT TECHNOLOGIES SPECIALIST CPT-G0008 Administration of Influenza Virus Vaccine 13:36:47 CDT CPT-89630 Fluzone High-Dose Intramuscular Suspension 11/15 13:36:47 CDT CPT-J0897 Prolia 60 mg 08:50:41 CDT CPT-53146 Abx/Therapy Injection 08:50:41 CDT CPT-47534 Bone Density 12:06:12 CDT CPT-23929 Bone Density 08:54:40 CDT CPT-OV Office Visit 15:37:02 CDT CPT-65020 Postop F/U Visit 15:47:49 CDT CPT-48968 Postop F/U Visit 15:21:02 CDT CPT-[facility] Transitional Care Mgmt-High 07:52:27 CDT 20 20/06/01 CPT-23236 Venipuncture Draw Fee 13:51:18 CDT CPT-55373 Venipuncture Draw Fee 10:14:55 CLIENT TECHNOLOGIES SPECIALIST CPT-67472 Venipuncture Draw Fee 13:39:45 CLIENT TECHNOLOGIES SPECIALIST CPT-OV Office Visit 15:11:22 CLIENT TECHNOLOGIES SPECIALIST CPT-77602 Venipuncture Draw Fee 09:20:49 CLIENT TECHNOLOGIES SPECIALIST CPT-01552 Venipuncture Draw Fee 16:52:15 CLIENT TECHNOLOGIES SPECIALIST CPT-04381 Venipuncture Draw Fee 10:37:24 CLIENT TECHNOLOGIES SPECIALIST CPT-75036 Venipuncture Draw Fee 08:21:21 CLIENT TECHNOLOGIES SPECIALIST CPT-73582 Venipuncture Draw Fee 08:30:20 CLIENT TECHNOLOGIES SPECIALIST CPT-88233 Venipuncture Draw Fee 14:53:21 CLIENT TECHNOLOGIES SPECIALIST CPT-22574 Venipuncture Draw Fee 09:40:56 CLIENT TECHNOLOGIES SPECIALIST CPT-68143 Venipuncture Draw Fee 10:30:47 CLIENT TECHNOLOGIES SPECIALIST CPT-97347 Venipuncture Draw Fee 10:46:17 CLIENT TECHNOLOGIES SPECIALIST CPT-54746 Venipuncture Draw Fee 11:12:45 CLIENT TECHNOLOGIES SPECIALIST CPT-58850 Venipuncture Draw Fee 09:53:33 CLIENT TECHNOLOGIES SPECIALIST CPT-05819 Venipuncture Draw Fee 11:53:51 CLIENT TECHNOLOGIES SPECIALIST CPT-88044 Venipuncture Draw Fee 10:33:50 CLIENT TECHNOLOGIES SPECIALIST CPT-23277 Venipuncture Draw Fee 10:05:01 CLIENT TECHNOLOGIES SPECIALIST CPT-70134 Venipuncture Draw Fee 14:32:52 CLIENT TECHNOLOGIES SPECIALIST CPT-69839 Venipuncture Draw Fee 09:46:13 CLIENT TECHNOLOGIES SPECIALIST CPT-70159 Venipuncture Draw Fee 11:34:27 CLIENT TECHNOLOGIES SPECIALIST CPT-20876 Venipuncture Draw Fee 13:17:16 CLIENT TECHNOLOGIES SPECIALIST CPT-60907 Venipuncture Draw Fee 12:05:39 CDT CPT-38107 Venipuncture Draw Fee 12:49:12 CDT CPT-47011 Venipuncture Draw Fee 12:37:18 CDT CPT-77609 Venipuncture Draw Fee 10:57:11 CDT CPT-54302 Venipuncture Draw Fee 13:47:40 CDT CPT-02868 Venipuncture Draw Fee 10:02:17 CDT CPT-38247 TB Tubersol 17:32:32 CDT CPT-OV Office Visit 16:21:53 CDT CPT-OV Office Visit 15:49:22 CDT CPT-OV Office Visit 17:16:31 CDT CPT-OV Office Visit 10:43:31 CDT
--- OUTSIDE RECORDS SUMMARY | 2019-02-09 12:21 | XMS REPORT | Clinical Summary ---
Author Author Renaldo, Florecita Munoz Organization [facility] Address Unknown Phone Unavailable Allergies, Adverse Reactions, [...] PhD Hyperpotassemia GERD 530.81 Resolved Kylie Yokum PRESIDENT AND CEO Esophageal reflux Health maintenance exam V70.0 Resolved Adolfo Yates MD Routine general medical examination at a health care facility Anemia 285.9 Resolved Kylie Holt PRESIDENT AND CEO Anemia, unspecified Personal history of malignant neoplasm [...] Sebaceous cyst, scalp 706.2 Resolved Kylie Holt PRESIDENT AND CEO Sebaceous cyst Cervical lymphadenopathy, anterior, left 785.6 Resolv ed Kylie Holt PRESIDENT AND CEO Enlargement of lymph nodes Need for prophylactic vaccination and inoculation against in fluenza V04.81 Resolved Adam Yates MD Need for prophylactic vaccination and inoculation against influenza Preventive health care V70.0 Active Kylie Holt PRESIDENT AND CEO Routine general medical examination at a health care facility Thyroid nodule, left 241.0 Active Kylie Gonzalez PRN Nontoxic uninodular goiter Screening mammogram V76.12 Active Kylie Holt AP RN Other screening mammogram Mandy 706.2 Active Adam Yates MD Sebaceous cyst Colon cancer, ascending 153.6 Active Kelsy F aux RMA Malignant neoplasm of ascending colon ABDOMINAL PAIN, RIGHT LOWER QUADRANT ICD-789.03 Inactive Kina Joshua PRESIDENT AND CEO ADENOCARCINOMA, COLON, 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 Dick Yates MD ABDOMINAL PAIN, GENERALIZED ICD-789.07 Inactive Hope Benavidez MD PhD FEVER UNSPECIFIED ICD-780.60 Inactive Hope cohn MD PhD UNSPECIFIED VENOUS INSUFFICIENCY ICD-459.81 [place] ctive Adam Yates MD ADENOCARCINOMA, 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 Inac abdelrahman Benavidez MD PhD Hyperkalemia ICD-276.7 Inactive Hope Benavidze MD PhD GERD ICD-530.81 Inactive Kylie Holt PRESIDENT AND CEO 2015 Health maintenance exam ICD-V70.0 Inactive Adolfo Yates MD Anemia ICD-285.9 Inactive Kylie Holt PRESIDENT AND CEO 07/24 Weakness ICD-780.79 Inactive Hope Benavidez MD [...] Sebaceous cyst, scalp ICD-706.2 Inactive Tracy Holt PRESIDENT AND CEO Cervical lymphadenopathy, anterior, left ICD-785.6 Inactive Kylie Holt PRESIDENT AND CEO Need for prophylactic vaccination and inoculation against in fluenza ICD-V04.81 Inactive Adam Yates MD Medication List Medication Instructions Start Date Stop Date Generic Name NDC Status Provider Patient Instruction COQ10 100 MG ORAL CAPS 1 daily COENZYME Q10 770167228 20 Active EastonLETY Haley Active VITAMIN D3 2000 UNIT ORAL CAPS Melaleuca-One daily CHOLECALCIFEROL 86909769987 Active Kylie Lundum PRESIDENT AND CEO Active PROBIOTIC DAILY ORAL CAPS Take one daily PROBIOTIC PRODUCT 76690104160 Active Kylie Lundum PRESIDENT AND CEO Active IRON 325 (65 FE) MG TABS 1 every other day FERR OUS SULFATE 63847180048 No Longer Active Kylie Escalonakum PRESIDENT AND CEO Active FLORANEX PACK 1 pack three times daily, for bowel health LACTOBACILLUS 11681818585 No Longer Active Kylie Lundum PRESIDENT AND CEO Active LOMOTIL 2.5-0.025 MG TABS 1 tab by mouth prn 4 DIPHENOXYLATE-ATROPINE 46583291673 No Longer Active Kylie Lundum PRESIDENT AND CEO Active MAGNESIUM GLUCONATE 250 MG TABS 1 tab tid 4 MAGNESIUM GLUCONATE 39712130701 No Longer Active Kylie Lundum PRESIDENT AND CEO Active CYANOCOBALAMIN 1000 MCG/ML INJ SOLN 1 injection every 2 weeks 20 20/01/03 CYANOCOBALAMIN 06688503395 No Longer Active Kylie Lundum PRESIDENT AND CEO Active ATENOLOL 25 MG ORAL TABS 1/2 pill by mouth daily, for headac hes, blood pressure ATENOLOL 38157366233 Active Kylie Lundum PRESIDENT AND CEO Active PROPRANOLOL HCL 80 MG TABS 1 tab tue. and thur. 04/10 PROPRANOLOL HCL 22023413484 No Longer Active Hope Benavidez MD PhD A ctive VITAMIN D3 4000 IU 1 tab 3 times daily VITAMIN D3 4000 IU No Longer Active Hope Benavidez MD PhD Active BACTRIM DS 800-160 MG TABS 1 pill by mouth twice daily, for UTI SULFAMETHOXAZOLE-TRIMETHOPRIM 14321193719 No Longer Active A attila Benavidez MD PhD Active PROLIA 60 MG/ML SOLN 1 shot every 6 months for osteoprosis DENOSUMAB 15552366563 Active Hope Benavidez MD PhD Active CALCIUM + D + K 750-500-40 MG-UNT-MCG TABS 1 tab by mouth tw ice daily CALCIUM-VITAMIN D-VITAMIN K 53033266951 Active Hope landers MD PhD Active DAILY VALUE MULTIVITAMIN TABS 1 tab by mouth twice daily MULTIPLE VITAMIN 44792830213 Active Hope Benavidez MD PhD Active FISH OIL 306 MG CAPS 1 tab by mouth three times daily OMEGA-3 FATTY ACIDS 12163243622 Active Hope Benavidez MD PhD Active LUTEIN 10 MG TABS 1 tab daily LUTEIN 12718908845 Act cash Hope Benavidez MD PhD Active TRIAMTERENE-HCTZ 37.5-25 MG TABS 1 tab by mouth daily TRIAMTERENE-HCTZ 04193611679 Active Kylie Holt PRESIDENT AND CEO Active CYCLOBENZAPRINE HCL 10 MG TABS 1 tablet by mouth three times daily as needed for headaches CYCLOBENZAPRINE HCL 01336739530 No Longe r Active Adam Yates MD Active OMEPRAZOLE 20 MG CPDR 1 tablet by mouth daily for GERD OMEPRAZOLE 33515047418 No Longer Active Adam Yates MD A ctive ZOFRAN 8 MG TABS 1 tab by mouth every 12 hours prn 201 05/16/09 ONDANSETRON HCL 35897833818 No Longer Active Adam Yates MD Active PHENADOZ 25 MG SUPP 1 every 4 hrs. PRN PROMETHA ZINE HCL 96696343514 No Longer Active Adam Yates MD Active POTASSIUM CHLORIDE 20 MEQ PACK by mouth twice a day prn POTASSIUM CHLORIDE 11303751632 No Longer Active Adam Yates MD Active PROMETHAZINE HCL 25 MG TABS 1 Q. 4 hr. PRN PROM ETHAZINE HCL 39971468914 No Longer Active Adam Yates MD Active INNOPRAN XL 120 MG [id number] Take one by mouth daily 2 PROPRANOLOL HCL SR BEADS 67249816141 No Longer Active Adam Yates MD A ctive FLAGYL 500 MG TABS 1 pill by mouth three times daily, for diarrh ea METRONIDAZOLE 24130082452 No Longer Active Hope Benavidez MD PhD Active DYAZIDE 37.5-25 MG CAPS 1 qd TRIAMTERENE-HC TZ 86591064375 No Longer Active Hope Benavidez MD PhD Active PROZAC 20 MG CAPS 1 q d FLUOXETINE HCL 14874 701824 No Longer Active Hope Benavidez MD PhD Active SIMVASTATIN 40 MG TABS 1 qd SIMVASTATIN 004 84687562 No Longer Active Adam Yates MD Active MELOXICAM 15 MG TABS 1 qd MELOXICAM 4375021 0950 No Longer Active Adam Yates MD Active IMODIUM A-D 2 MG TABS 2 onset at diarrhea and prn. LOPERAMIDE HCL 56308941912 Active Hope Benavidez MD PhD Active EXCEDRIN EXTRA STRENGTH 250-250-65 MG TABS 1-2 q6h PRN headache 201 04/16/21 [id number] 70392628837 Active Hope Benavidez MD PhD Active FLAGYL 500 MG TABS 1 qid METRONIDAZOLE 88740 025003 No Longer Active Adam Yates MD Active LEVAQUIN 750 MG TABS 1 qd LEVOFLOXACIN 5486 3005634 No Longer Active Adam Yates MD Active ADULT ASPIRIN LOW STRENGTH 81 MG TBDP 1 qd A SPIRIN 01727817254 Active Hope Benavidez MD PhD Active LEVAQUIN 750 MG TABS 1 qd LEVAQUIN 750 MG T ABS 424277 LEVOFLOXACIN Inactive FLAGYL 500 MG TABS 1 qid FLAGYL 500 MG TABS 098249 METRONIDAZOLE Inactive MELOXICAM 15 MG TABS 1 qd MELOXICAM 15 MG T ABS 676150 MELOXICAM Inactive SIMVASTATIN 40 MG TABS 1 qd SIMVASTATIN 40 MG TABS 060325 SIMVASTATIN Inactive PROZAC 20 MG CAPS 1 q d PROZAC 20 MG CAPS 31 0385 FLUOXETINE HCL Inactive DYAZIDE 37.5-25 MG CAPS 1 qd DYAZIDE 37.5 -25 MG CAPS 959557 TRIAMTERENE-HCTZ Inactive INNOPRAN XL 120 MG [id number] Take one by mouth daily 2 INNOPRAN XL 120 MG [id number] PROPRANOLOL HCL SR BEADS Inactive PROMETHAZINE HCL 25 MG TABS 1 Q. 4 hr. PRN PROMETHAZINE HCL 25 MG TABS 705362 PROMETHAZINE HCL Inactive POTASSIUM CHLORIDE 20 MEQ PACK by mouth twice a day prn POTASSIUM CHLORIDE 20 MEQ PACK 7558293 POTASSIUM CHLORIDE Inactive PHENADOZ 25 MG SUPP 1 every 4 hrs. PRN PHENADOZ 2 5 MG SUPP 370528 PROMETHAZINE HCL Inactive ZOFRAN 8 MG TABS 1 tab by mouth every 12 hours prn 201 05/16/09 ZOFRAN 8 MG TABS 121665 ONDANSETRON HCL Inactive OMEPRAZOLE 20 MG CPDR 1 tablet by mouth daily for GERD OMEPRAZOLE 20 MG CPDR 486229 OMEPRAZOLE Inactive CYCLOBENZAPRINE HCL 10 MG TABS 1 tablet by mouth three times daily as needed for headaches CYCLOBENZAPRINE HCL 10 MG TABS 205920 CYCLOBENZAPRINE HCL Inactive VITAMIN D3 4000 IU 1 tab 3 times daily VITAMIN D3 4000 IU Inactive PROPRANOLOL HCL 80 MG TABS 1 tab tue. and thur. 04/10 PROPRANOLOL HCL 80 MG TABS 653670 PROPRANOLOL HCL Inactive CYANOCOBALAMIN 1000 MCG/ML INJ SOLN 1 injection every 2 weeks 20 20/01/03 CYANOCOBALAMIN 1000 MCG/ML INJ SOLN 686721 CYANOCOBALAM IN Inactive MAGNESIUM GLUCONATE 250 MG TABS 1 tab tid 4 MAGNESIUM GLUCONATE 250 MG TABS 776525 MAGNESIUM GLUCONATE Inactive LOMOTIL 2.5-0.025 MG TABS 1 tab by mouth prn 4 LOMOTIL 2.5- 0.025 MG TABS 9617087 DIPHENOXYLATE-ATROPINE Inactive FLORANEX PACK 1 pack three times daily, for bowel health FLORANEX PACK LACTOBACILLUS Inactive IRON 325 (65 FE) MG TABS 1 every other day IRON 325 (65 FE) MG TABS 641707 FERROUS SULFATE Inactive FLAGYL 500 MG TABS 1 pill by mouth three times daily, for diarrh ea FLAGYL 500 MG TABS 341988 METRONIDAZOLE Inactive BACTRIM DS 800-160 MG TABS 1 pill by mouth twice daily, for UTI BACTRIM DS 800-160 MG TABS 900823 SULFAMETHOXAZOLE-TRIM ETHOPRIM Inactive Advance Directives Directive Description [...] - 3141-9 147.31 [lb_av] Weigh t Measured Diagnostic Results Date [...] 11 .0-15.0 platelet count 157 THOUSAND/UL 10*3/mm3 388-167 4032/04/20 mean platelet volume 8.9 fL 7.5-12.5 Lab Report: CBC W/DIFF, Comp. Metabolic Panel, Thyroid Stimulating Hormo ... - Chemistry sodium, serum 139 mmol/L 151-919 0939/10/20 carbon dioxide, venous blood 32.2 mmol/L 21.0-32 [...] - Chemi stry cholesterol, serum 200 mg/dL 380-883 8766/11/22 triglyceride, serum, fasting 129 mg/dL 30-200 HDL cholesterol, serum 56 mg/dL 32-96 LDL cholesterol, serum 118 mg/dL 0-130 calcium, serum 9.0 mg/dL 8.5-10.1 Lab Report: MicroAlb Random w/creat/6517 - Urinalysis microalbumin/total urine volume 8 mg/L Units converted. See lab report for original value. microalbumin/creatinine ratio, urine 15 MCG/MG CREAT mg/L <30 Encounters Code Encounter Date Provider Facility CPT-01949 Level 3 Est. Patient 16:26:30 CDT Kina blackmon [facility] CPT-77862 Level 3 New Patient 16:22:01 [employer]IST SUPERVISOR Adam Yates MD [facility] CPT-62039 Level 4 Est. Patient 17:00:48 CDT Kylie Lund [facility] CPT-43959 Level 3 Est. Patient 13:15:54 CDT Kylie Lund [facility] CPT-30569 Level 3 Est. Patient 09:10:11 CDT [facility] C[facility]21 Level 4 Est. Patient 12:08:30 [employer]IST SUPERVISOR Hope cohn MD PhD [facility] CPT-00402 Level 4 Est. Patient 19:08:42 [employer] SPECIALIST SUPERVISOR Hope cohn MD PhD [facility] CPT-35787 Level 4 Est. Patient 20:04:51 CDT Hope cohn MD PhD [facility] CPT-36800 Level 3 New Patient 01:46:11 [employer]IST SUPERVISOR Hope landers MD PhD [facility] Procedures Code Procedure Name Date Entry Date Standard Desc ription CPT-J0897 Prolia 60 mg 14:14:16 [employer]IST SUPERVISOR CPT-28941 Abx/Therapy Injection 14:14:15 [employer]IST SUPERVISOR CPT-66308 Lipid - LAB USE ONLY 10:01:52 [employer]IST SUPERVISOR 2 CPT-57285 Calcium - LAB USE ONLY 10:01:51 [employer]IST SUPERVISOR CPT-46210 Venipuncture Draw Fee 10:01:51 [employer]IST SUPERVISOR CPT-LR Lesion Removal 16:22:01 [employer]IST SUPERVISOR CPT-25742 TSH - LAB USE ONLY 14:26:02 CDT CPT-42123 CMP - LAB USE ONLY 14:26:01 CDT CPT-95857 CBC with Diff - LAB USE ONLY 14:26:01 CDT 2 CPT-05531 Venipuncture Draw Fee 14:26:01 CDT CPT-20204 First Vx - Ix admin for Medicare patients 13:27:08 CDT CPT-67756 Fluzone High-Dose Intramuscular Suspension 11/26 13:27:08 CDT CPT-G0438 Initial Annual Wellness Exam 14:19:57 CD T CPT-G0009 Administration of Pneumococcal Vaccine 9 11:36:25 CDT CPT-58056 Prevnar 13 Intramuscular Suspension 1 1:36:25 CDT CPT-86503 Prevnar 13 Intramuscular Suspension 1 0:40:58 CDT CPT-J0897 Prolia 60 mg 10:37:16 CDT CPT-94008 Abx/Therapy Injection 10:37:16 CDT CPT-J0897 Prolia 60 mg 16:09:34 [employer]IST SUPERVISOR CPT-J0897 Prolia 60 mg 11:10:35 [employer]IST SUPERVISOR CPT-47365 Abx/Therapy Injection 11:10:35 [employer]IST SUPERVISOR CPT-000 Give Appropriate Flu Vaccine 17:01:15 [employer]IST SUPERVISOR 2 CPT-68733 Fluzone High Dose (65+) 15:03:08 [employer]IST SUPERVISOR 02/15 CPT-27822 Immunization Single Admin 15:03:08 [employer]IST SUPERVISOR 2014 CPT-OV Office Visit 15:58:06 CDT CPT-J0897 Prolia 60 mg 08:45:38 CDT CPT-02574 Abx/Therapy Injection 08:45:38 CDT CPT-J3420 Vitamin B12 1000mcg (Cyanocobalamin) 09:26:20 [employer]IST SUPERVISOR CPT-93339 Abx/Therapy Injection 09:26:20 [employer]EST [employer] SPECIALIST SUPERVISOR CPT-J3420 Vitamin B12 1000mcg (Cyanocobalamin) 09:44:40 [employer] SPECIALIST SUPERVISOR CPT-94936 Abx/Therapy Injection 09:44:40 [employer] SPECIALIST SUPERVISOR CPT-J3420 Vitamin B12 1000mcg (Cyanocobalamin) 09:15:54 [employer] SPECIALIST SUPERVISOR CPT-99880 Abx/Therapy Injection 09:15:54 [employer] SPECIALIST SUPERVISOR CPT-J3420 Vitamin B12 1000mcg (Cyanocobalamin) 09:46:44 [employer] SPECIALIST SUPERVISOR CPT-70419 Abx/Therapy Injection 09:46:44 [employer] SPECIALIST SUPERVISOR CPT-J3420 Vitamin B12 1000mcg (Cyanocobalamin) 09:47:34 [employer]EST [employer] SPECIALIST SUPERVISOR CPT-99107 Abx/Therapy Injection 09:47:34 FOR[employer] SPECIALIST SUPERVISOR CPT-J3420 Vitamin B12 1000mcg (Cyanocobalamin) 14:35:50 [employer] SPECIALIST SUPERVISOR CPT-J3420 Vitamin B12 1000mcg (Cyanocobalamin) 09:25:05 [employer] SPECIALIST SUPERVISOR CPT-60223 Abx/Therapy Injection 09:25:05 [employer]IST SUPERVISOR CPT-G0008 Administration of Influenza Virus Vaccine 13:36:47 CDT CPT-82437 Fluzone High-Dose Intramuscular Suspension 11/15 13:36:47 CDT CPT-J0897 Prolia 60 mg 08:50:41 CDT CPT-46861 Abx/Therapy Injection 08:50:41 CDT CPT-31319 Bone Density 12:06:12 CDT CPT-95016 Bone Density 08:54:40 CDT CPT-OV Office Visit 15:37:02 CDT CPT-15560 Postop F/U Visit 15:47:49 CDT CPT-89333 Postop F/U Visit 15:21:02 CDT CPT-TCMH Transitional Care Mgmt-High 07:52:27 CDT 20 20/06/01 CPT-89685 Venipuncture Draw Fee 13:51:18 CDT CPT-71205 Venipuncture Draw Fee 10:14:55 [employer]IST SUPERVISOR CPT-67942 Venipuncture Draw Fee 13:39:45 [employer] SPECIALIST SUPERVISOR CPT-OV Office Visit 15:11:22 [employer]EST [employer] SPECIALIST SUPERVISOR CPT-83765 Venipuncture Draw Fee 09:20:49 FOR[employer] SPECIALIST SUPERVISOR CPT-99658 Venipuncture Draw Fee 16:52:15 [employer]EST [employer] SPECIALIST SUPERVISOR CPT-92942 Venipuncture Draw Fee 10:37:24 FOR[employer] SPECIALIST SUPERVISOR CPT-93613 Venipuncture Draw Fee 08:21:21 FOREST [employer] SPECIALIST SUPERVISOR CPT-64935 Venipuncture Draw Fee 08:30:20 FOREST [employer] SPECIALIST SUPERVISOR CPT-27901 Venipuncture Draw Fee 14:53:21 FOREST [employer] SPECIALIST SUPERVISOR CPT-59744 Venipuncture Draw Fee 09:40:56 [employer] SPECIALIST SUPERVISOR CPT-68318 Venipuncture Draw Fee 10:30:47 [employer] SPECIALIST SUPERVISOR CPT-46445 Venipuncture Draw Fee 10:46:17 [employer] SPECIALIST SUPERVISOR CPT-11788 Venipuncture Draw Fee 11:12:45 [employer] SPECIALIST SUPERVISOR CPT-03370 Venipuncture Draw Fee 09:53:33 [employer] SPECIALIST SUPERVISOR CPT-69934 Venipuncture Draw Fee 11:53:51 [employer] SPECIALIST SUPERVISOR CPT-93611 Venipuncture Draw Fee 10:33:50 [employer] SPECIALIST SUPERVISOR CPT-90042 Venipuncture Draw Fee 10:05:01 FOREST [employer] SPECIALIST SUPERVISOR CPT-59050 Venipuncture Draw Fee 14:32:52 [employer] SPECIALIST SUPERVISOR CPT-46237 Venipuncture Draw Fee 09:46:13 FOREST [employer] SPECIALIST SUPERVISOR CPT-07569 Venipuncture Draw Fee 11:34:27 [employer] SPECIALIST SUPERVISOR CPT-50256 Venipuncture Draw Fee 13:17:16 [employer] SPECIALIST SUPERVISOR CPT-15905 Venipuncture Draw Fee 12:05:39 CDT CPT-68161 Venipuncture Draw Fee 12:49:12 CDT CPT-93741 Venipuncture Draw Fee 12:37:18 CDT CPT-38051 Venipuncture Draw Fee 10:57:11 CDT CPT-64446 Venipuncture Draw Fee 13:47:40 CDT CPT-39510 Venipuncture Draw Fee 10:02:17 CDT CPT-46109 TB Tubersol 17:32:32 CDT CPT-OV Office Visit 16:21:53 CDT CPT-OV Office Visit 15:49:22 CDT CPT-OV Office Visit 17:16:31 CDT CPT-OV Office Visit 10:43:31 CDT
--- OUTSIDE RECORDS SUMMARY | 2019-02-09 12:21 | XMS REPORT | Clinical Summary ---
Author Author Renaldo, Florecita Munoz Organization [facility] [employer] Address Unknown Phone Unavailable Allergies, Adverse Reactions, [...] Hyperpotassemia GERD 530.81 Resolved Kylie Yokum MANAGER APPLE Esophageal reflux Health maintenance exam V70.0 Resolved Adolfo Yates MD Routine general medical examination at a health care facility Anemia 285.9 Resolved Kylie Holt MANAGER APPLE Anemia, unspecified Personal history of malignant neoplasm [...] cyst, scalp 706.2 Resolved Kylie Holt MANAGER APPLE Sebaceous cyst Cervical lymphadenopathy, anterior, left 785.6 Resolv ed Kylie Holt MANAGER APPLE Enlargement of lymph nodes Need for prophylactic vaccination and inoculation against in fluenza V04.81 Resolved Adam Yates MD Need for prophylactic vaccination and inoculation against influenza Preventive health care V70.0 Active Kylie Holt MANAGER APPLE Routine general medical examination at a health care facility Thyroid nodule, left 241.0 Active Kylie Holt A PRN Nontoxic uninodular goiter Screening mammogram V76.12 Active Kylie Holt AP RN Other screening mammogram Mandy 706.2 Active Adam Yates MD Sebaceous cyst Colon cancer, ascending 153.6 Active Kelsy F aux RMA Malignant neoplasm of ascending colon Foot pain, left 729.5 Active 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 Pain in limb ABDOMINAL PAIN, RIGHT LOWER QUADRANT ICD-789.03 Inactive Kina Joshua MANAGER APPLE ADENOCARCINOMA, COLON, 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 Dick Yates MD ABDOMINAL PAIN, GENERALIZED ICD-789.07 Inactive Hope Benavidez MD PhD FEVER UNSPECIFIED ICD-780.60 Inactive Hope cohn MD PhD UNSPECIFIED VENOUS INSUFFICIENCY ICD-459.81 [place] ctive Adam Yates MD ADENOCARCINOMA, 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 Inac abdelrahman Benavidez MD PhD Hyperkalemia ICD-276.7 Inactive Hope Benavidez MD PhD GERD ICD-530.81 Inactive Kylie Yokum MANAGER APPLE 2015 Health maintenance exam ICD-V70.0 Bam Yates MD Anemia ICD-285.9 Inactive Kylie Yokum MANAGER APPLE 07/24 Weakness ICD-780.79 Inactive Hope Benavidez MD [...] scalp ICD-706.2 Inactive Tracy hi Yokum MANAGER APPLE Cervical lymphadenopathy, anterior, left ICD-785.6 Inactive Kylie Yokum MANAGER APPLE Need for prophylactic vaccination and inoculation against in fluenza ICD-V04.81 Inactive Adam Yates MD Medication List Medication Instructions Start Date Stop Date Generic Name NDC Status Provider Patient Instruction COQ10 100 MG ORAL CAPS 1 daily COENZYME Q10 028001727 20 Active Fay VIRI AlbertsLisa Active VITAMIN D3 2000 UNIT ORAL CAPS Melaleuca-One daily CHOLECALCIFEROL 67925595363 Active Kylie Lundum MANAGER APPLE Active PROBIOTIC DAILY ORAL CAPS Take one daily PROBIOTIC PRODUCT 69537437589 Active Kylie Lundum MANAGER APPLE Active IRON 325 (65 FE) MG TABS 1 every other day FERR OUS SULFATE 16800082859 No Longer Active Kylie Lundum MANAGER APPLE Active FLORANEX PACK 1 pack three times daily, for bowel health LACTOBACILLUS 63902411896 No Longer Active Kylie Holt APRN Active LOMOTIL 2.5-0.025 MG TABS 1 tab by mouth prn 4 DIPHENOXYLATE-ATROPINE 72918512199 No Longer Active Kylie Lundum MANAGER APPLE Active MAGNESIUM GLUCONATE 250 MG TABS 1 tab tid 4 MAGNESIUM GLUCONATE 78650406290 No Longer Active Kylie Lundum MANAGER APPLE Active CYANOCOBALAMIN 1000 MCG/ML INJ SOLN 1 injection every 2 weeks 20 20/01/03 CYANOCOBALAMIN 16384312577 No Longer Active Kylie Lundum MANAGER APPLE Active ATENOLOL 25 MG ORAL TABS 1/2 pill by mouth daily, for headac hes, blood pressure ATENOLOL 17381463999 Active Kylie Yokum MANAGER APPLE Active PROPRANOLOL HCL 80 MG TABS 1 tab tue. and thur. 04/10 PROPRANOLOL HCL 17566682311 No Longer Active Hope Benavidez MD PhD A ctive VITAMIN D3 4000 IU 1 tab 3 times daily VITAMIN D3 4000 IU No Longer Active Hope Benaviedz MD PhD Active BACTRIM DS 800-160 MG TABS 1 pill by mouth twice daily, for UTI SULFAMETHOXAZOLE-TRIMETHOPRIM 42730506410 No Longer Active Lisa Benavidez MD PhD Active PROLIA 60 MG/ML SOLN 1 shot every 6 months for osteoprosis DENOSUMAB 71246257381 Active Hope Benavidez MD PhD Active CALCIUM + D + K 750-500-40 MG-UNT-MCG TABS 1 tab by mouth tw ice daily CALCIUM-VITAMIN D-VITAMIN K 14150974561 Active Hope landers MD PhD Active DAILY VALUE MULTIVITAMIN TABS 1 tab by mouth twice daily MULTIPLE VITAMIN 14077014083 Active Hope Benavidez MD PhD Active FISH OIL 306 MG CAPS 1 tab by mouth three times daily OMEGA-3 FATTY ACIDS 96858035200 Active Hope Benavidez MD PhD Active LUTEIN 10 MG TABS 1 tab daily LUTEIN 89574121909 Act cash Hope Benavidez MD PhD Active TRIAMTERENE-HCTZ 37.5-25 MG TABS 1 tab by mouth daily TRIAMTERENE-HCTZ 08371931641 Active Kylie Escalonapari REYES Active CYCLOBENZAPRINE HCL 10 MG TABS 1 tablet by mouth three times daily as needed for headaches CYCLOBENZAPRINE HCL 62041313791 No Longe r Active Adam Yates MD Active OMEPRAZOLE 20 MG CPDR 1 tablet by mouth daily for GERD OMEPRAZOLE 44998133452 No Longer Active Adam Yates MD A ctive ZOFRAN 8 MG TABS 1 tab by mouth every 12 hours prn 201 05/16/09 ONDANSETRON HCL 54622741298 No Longer Active Adam Yates MD Active PHENADOZ 25 MG SUPP 1 every 4 hrs. PRN PROMETHA ZINE HCL 65042358010 No Longer Active Adam Yates MD Active POTASSIUM CHLORIDE 20 MEQ PACK by mouth twice a day prn POTASSIUM CHLORIDE 17496441822 No Longer Active Adam Yates MD Active PROMETHAZINE HCL 25 MG TABS 1 Q. 4 hr. PRN PROM ETHAZINE HCL 19906153246 No Longer Active Adam Yates MD Active INNOPRAN XL 120 MG [id number] Take one by mouth daily 2 PROPRANOLOL HCL SR BEADS 15952156186 No Longer Active Adam Yates MD A ctive FLAGYL 500 MG TABS 1 pill by mouth three times daily, for diarrh ea METRONIDAZOLE 03157994077 No Longer Active Hope Benavidez MD PhD Active DYAZIDE 37.5-25 MG CAPS 1 qd TRIAMTERENE-HC TZ 36270547940 No Longer Active Hope Benavidez MD PhD Active PROZAC 20 MG CAPS 1 q d FLUOXETINE HCL 06698 582977 No Longer Active Hope Benavidez MD PhD Active SIMVASTATIN 40 MG TABS 1 qd SIMVASTATIN 004 56443300 No Longer Active Adam Yates MD Active MELOXICAM 15 MG TABS 1 qd MELOXICAM 4929036 6334 No Longer Active Adam Yates MD Active IMODIUM A-D 2 MG TABS 2 onset at diarrhea and prn. LOPERAMIDE HCL 11287792735 Active Hope Benavidez MD PhD Active EXCEDRIN EXTRA STRENGTH 250-250-65 MG TABS 1-2 q6h PRN headache 201 04/16/21 [id number] 96677079044 Active Hope Benavidez MD PhD Active FLAGYL 500 MG TABS 1 qid METRONIDAZOLE 88765 333802 No Longer Active Adam Yates MD Active LEVAQUIN 750 MG TABS 1 qd LEVOFLOXACIN 5486 0137904 No Longer Active Adam Yates MD Active ADULT ASPIRIN LOW STRENGTH 81 MG TBDP 1 qd A SPIRIN 01369278216 Active Hope Benavidez MD PhD Active LEVAQUIN 750 MG TABS 1 qd LEVAQUIN 750 MG T ABS 733376 LEVOFLOXACIN Inactive FLAGYL 500 MG TABS 1 qid FLAGYL 500 MG TABS 023977 METRONIDAZOLE Inactive MELOXICAM 15 MG TABS 1 qd MELOXICAM 15 MG T ABS 256644 MELOXICAM Inactive SIMVASTATIN 40 MG TABS 1 qd SIMVASTATIN 40 MG TABS 254214 SIMVASTATIN Inactive PROZAC 20 MG CAPS 1 q d PROZAC 20 MG CAPS 31 0385 FLUOXETINE HCL Inactive DYAZIDE 37.5-25 MG CAPS 1 qd DYAZIDE 37.5 -25 MG CAPS 933586 TRIAMTERENE-HCTZ Inactive INNOPRAN XL 120 MG [id number] Take one by mouth daily 2 INNOPRAN XL 120 MG NE99Q-EIU PROPRANOLOL HCL SR BEADS Inactive PROMETHAZINE HCL 25 MG TABS 1 Q. 4 hr. PRN PROMETHAZINE HCL 25 MG TABS 139186 PROMETHAZINE HCL Inactive POTASSIUM CHLORIDE 20 MEQ PACK by mouth twice a day prn POTASSIUM CHLORIDE 20 MEQ PACK 7654232 POTASSIUM CHLORIDE Inactive PHENADOZ 25 MG SUPP 1 every 4 hrs. PRN PHENADOZ 2 5 MG SUPP 992622 PROMETHAZINE HCL Inactive ZOFRAN 8 MG TABS 1 tab by mouth every 12 hours prn 201 05/16/09 ZOFRAN 8 MG TABS 769669 ONDANSETRON HCL Inactive OMEPRAZOLE 20 MG CPDR 1 tablet by mouth daily for GERD OMEPRAZOLE 20 MG CPDR 533623 OMEPRAZOLE Inactive CYCLOBENZAPRINE HCL 10 MG TABS 1 tablet by mouth three times daily as needed for headaches CYCLOBENZAPRINE HCL 10 MG TABS 902016 CYCLOBENZAPRINE HCL Inactive VITAMIN D3 4000 IU 1 tab 3 times daily VITAMIN D3 4000 IU Inactive PROPRANOLOL HCL 80 MG TABS 1 tab tue. and thur. 04/10 PROPRANOLOL HCL 80 MG TABS 882979 PROPRANOLOL HCL Inactive CYANOCOBALAMIN 1000 MCG/ML INJ SOLN 1 injection every 2 weeks 20 20/01/03 CYANOCOBALAMIN 1000 MCG/ML INJ SOLN 231909 CYANOCOBALAM IN Inactive MAGNESIUM GLUCONATE 250 MG TABS 1 tab tid 4 MAGNESIUM GLUCONATE 250 MG TABS 196888 MAGNESIUM GLUCONATE Inactive LOMOTIL 2.5-0.025 MG TABS 1 tab by mouth prn 4 LOMOTIL 2.5- 0.025 MG TABS 8024656 DIPHENOXYLATE-ATROPINE Inactive FLORANEX PACK 1 pack three times daily, for bowel health FLORANEX PACK LACTOBACILLUS Inactive IRON 325 (65 FE) MG TABS 1 every other day IRON 325 (65 FE) MG TABS 719753 FERROUS SULFATE Inactive FLAGYL 500 MG TABS 1 pill by mouth three times daily, for diarrh ea FLAGYL 500 MG TABS 500762 METRONIDAZOLE Inactive BACTRIM DS 800-160 MG TABS 1 pill by mouth twice daily, for UTI BACTRIM DS 800-160 MG TABS 177620 SULFAMETHOXAZOLE-TRIM ETHOPRIM Inactive Advance Directives Directive Description [...] 11 .0-15.0 platelet count 157 THOUSAND/UL 10*3/mm3 699-926 1340/04/20 mean platelet volume 8.9 fL 7.5-12.5 Lab Report: CBC W/DIFF, Comp. Metabolic Panel, Thyroid Stimulating Hormo ... - Chemistry sodium, serum 139 mmol/L 120-614 9371/10/20 carbon dioxide, venous blood 32.2 mmol/L 21.0-32 [...] - Chemi stry cholesterol, serum 200 mg/dL 330-261 8979/11/22 triglyceride, serum, fasting 129 mg/dL 30-200 HDL cholesterol, serum 56 mg/dL 32-96 LDL cholesterol, serum 118 mg/dL 0-130 calcium, serum 9.0 mg/dL 8.5-10.1 Lab Report: MicroAlb Random w/creat/6517 - Urinalysis microalbumin/total urine volume 8 mg/L Units converted. See lab report for original value. microalbumin/creatinine ratio, urine 15 MCG/MG CREAT mg/L <30 Encounters Code Encounter Date Provider Facility CPT-35255 Level 3 Est. Patient 16:26:30 CDT Kina blackmon [facility] CPT-76481 Level 3 New Patient 16:22:01 DIESEL INSPECTOR Adam Yates MD [facility] CPT-02478 Level 4 Est. Patient 17:00:48 CDT Kylie Lund [facility] CPT-17015 Level 3 Est. Patient 13:15:54 CDT Kylie Lund [facility][note 3] CPT-49753 Level 3 Est. Patient 09:10:11 CDT Kylie Lund [facility][note 3] CPT-01172 Level 4 Est. Patient 12:08:30 DIESEL INSPECTOR Hope cohn MD [facility] CPT-13937 Level 4 Est. Patient 19:08:42 DIESEL INSPECTOR Hope cohn MD PhD [facility] CPT-53238 Level 4 Est. Patient 20:04:51 CDT Hope cohn MD PhD [facility] CPT-22594 Level 3 New Patient 01:46:11 DIESEL INSPECTOR Hope landers MD PhD [facility] Procedures Code Procedure Name Date Entry Date Standard Desc ription CPT-84995 Foot, left, comp min 3V - XRAY USE ONLY 12:22:49 CDT CPT-G0009 Administration of Pneumococcal Vaccine 3 12:18:00 CDT CPT-61348 Pneumovax 23 Injection Injectable 25 MCG /0.5ML 12:18:00 CDT CPT-J0897 Prolia 60 mg 14:14:16 DIESEL INSPECTOR CPT-35583 Abx/Therapy Injection 14:14:15 DIESEL INSPECTOR CPT-40204 Lipid - LAB USE ONLY 10:01:52 DIESEL INSPECTOR 2 CPT-23372 Calcium - LAB USE ONLY 10:01:51 DIESEL INSPECTOR CPT-92020 Venipuncture Draw Fee 10:01:51 DIESEL INSPECTOR CPT-LR Lesion Removal 16:22:01 DIESEL INSPECTOR CPT-81216 TSH - LAB USE ONLY 14:26:02 CDT CPT-43596 CMP - LAB USE ONLY 14:26:01 CDT CPT-44628 CBC with Diff - LAB USE ONLY 14:26:01 CDT 2 CPT-70640 Venipuncture Draw Fee 14:26:01 CDT CPT-70910 First Vx - Ix admin for Medicare patients 13:27:08 CDT CPT-37215 Fluzone High-Dose Intramuscular Suspension 11/26 13:27:08 CDT CPT-G0438 Initial Annual Wellness Exam 14:19:57 CD T CPT-G0009 Administration of Pneumococcal Vaccine 9 11:36:25 CDT CPT-67831 Prevnar 13 Intramuscular Suspension 1 1:36:25 CDT CPT-43386 Prevnar 13 Intramuscular Suspension 1 0:40:58 CDT CPT-J0897 Prolia 60 mg 10:37:16 CDT CPT-00521 Abx/Therapy Injection 10:37:16 CDT CPT-J0897 Prolia 60 mg 16:09:34 DIESEL INSPECTOR CPT-J0897 Prolia 60 mg 11:10:35 DIESEL INSPECTOR CPT-64361 Abx/Therapy Injection 11:10:35 DIESEL INSPECTOR CPT-000 Give Appropriate Flu Vaccine 17:01:15 DIESEL INSPECTOR 2 CPT-56967 Fluzone High Dose (65+) 15:03:08 DIESEL INSPECTOR 02/15 CPT-00908 Immunization Single Admin 15:03:08 DIESEL INSPECTOR 2014 CPT-OV Office Visit 15:58:06 CDT CPT-J0897 Prolia 60 mg 08:45:38 CDT CPT-98701 Abx/Therapy Injection 08:45:38 CDT CPT-J3420 Vitamin B12 1000mcg (Cyanocobalamin) 09:26:20 DIESEL INSPECTOR CPT-25164 Abx/Therapy Injection 09:26:20 DIESEL INSPECTOR CPT-J3420 Vitamin B12 1000mcg (Cyanocobalamin) 09:44:40 DIESEL INSPECTOR CPT-10382 Abx/Therapy Injection 09:44:40 DIESEL INSPECTOR CPT-J3420 Vitamin B12 1000mcg (Cyanocobalamin) 09:15:54 DIESEL INSPECTOR CPT-14582 Abx/Therapy Injection 09:15:54 DIESEL INSPECTOR CPT-J3420 Vitamin B12 1000mcg (Cyanocobalamin) 09:46:44 DIESEL INSPECTOR CPT-65832 Abx/Therapy Injection 09:46:44 DIESEL INSPECTOR CPT-J3420 Vitamin B12 1000mcg (Cyanocobalamin) 09:47:34 DIESEL INSPECTOR CPT-82291 Abx/Therapy Injection 09:47:34 DIESEL INSPECTOR CPT-J3420 Vitamin B12 1000mcg (Cyanocobalamin) 14:35:50 DIESEL INSPECTOR CPT-J3420 Vitamin B12 1000mcg (Cyanocobalamin) 09:25:05 DIESEL INSPECTOR CPT-25613 Abx/Therapy Injection 09:25:05 DIESEL INSPECTOR CPT-G0008 Administration of Influenza Virus Vaccine 13:36:47 CDT CPT-61370 Fluzone High-Dose Intramuscular Suspension 11/15 13:36:47 CDT CPT-J0897 Prolia 60 mg 08:50:41 CDT CPT-38521 Abx/Therapy Injection 08:50:41 CDT CPT-31468 Bone Density 12:06:12 CDT CPT-97407 Bone Density 08:54:40 CDT CPT-OV Office Visit 15:37:02 CDT CPT-63630 Postop F/U Visit 15:47:49 CDT CPT-92058 Postop F/U Visit 15:21:02 CDT CPT-TCMH Transitional Care Mgmt-High 07:52:27 CDT 20 20/06/01 CPT-17437 Venipuncture Draw Fee 13:51:18 CDT CPT-49652 Venipuncture Draw Fee 10:14:55 DIESEL INSPECTOR CPT-38019 Venipuncture Draw Fee 13:39:45 DIESEL INSPECTOR CPT-OV Office Visit 15:11:22 DIESEL INSPECTOR CPT-33534 Venipuncture Draw Fee 09:20:49 DIESEL INSPECTOR CPT-64109 Venipuncture Draw Fee 16:52:15 DIESEL INSPECTOR CPT-13826 Venipuncture Draw Fee 10:37:24 DIESEL INSPECTOR CPT-28853 Venipuncture Draw Fee 08:21:21 DIESEL INSPECTOR CPT-92853 Venipuncture Draw Fee 08:30:20 DIESEL INSPECTOR CPT-83902 Venipuncture Draw Fee 14:53:21 DIESEL INSPECTOR CPT-58188 Venipuncture Draw Fee 09:40:56 DIESEL INSPECTOR CPT-24498 Venipuncture Draw Fee 10:30:47 DIESEL INSPECTOR CPT-87792 Venipuncture Draw Fee 10:46:17 DIESEL INSPECTOR CPT-29016 Venipuncture Draw Fee 11:12:45 DIESEL INSPECTOR CPT-20688 Venipuncture Draw Fee 09:53:33 DIESEL INSPECTOR CPT-85416 Venipuncture Draw Fee 11:53:51 DIESEL INSPECTOR CPT-85908 Venipuncture Draw Fee 10:33:50 DIESEL INSPECTOR CPT-75610 Venipuncture Draw Fee 10:05:01 DIESEL INSPECTOR CPT-89607 Venipuncture Draw Fee 14:32:52 DIESEL INSPECTOR CPT-73594 Venipuncture Draw Fee 09:46:13 DIESEL INSPECTOR CPT-42041 Venipuncture Draw Fee 11:34:27 DIESEL INSPECTOR CPT-12472 Venipuncture Draw Fee 13:17:16 DIESEL INSPECTOR CPT-99339 Venipuncture Draw Fee 12:05:39 CDT CPT-58763 Venipuncture Draw Fee 12:49:12 CDT CPT-27489 Venipuncture Draw Fee 12:37:18 CDT CPT-80284 Venipuncture Draw Fee 10:57:11 CDT CPT-82277 Venipuncture Draw Fee 13:47:40 CDT CPT-57424 Venipuncture Draw Fee 10:02:17 CDT CPT-65152 TB Tubersol 17:32:32 CDT CPT-OV Office Visit 16:21:53 CDT CPT-OV Office Visit 15:49:22 CDT CPT-OV Office Visit 17:16:31 CDT CPT-OV Office Visit 10:43:31 CDT
--- OUTSIDE RECORDS SUMMARY | 2019-02-09 12:22 | XMS REPORT | Clinical Summary ---
Author Author Florecita Macario Organization [facility] Address Unknown Phone Unavailable Allergies, Adverse Reactions, Alerts Allergy Name Reaction Description Start Date Severity Status Pr ovider No Known Allergies Robina Lee RN Conditions or Problems Problem Name Problem [...] Benavidez MD PhD Diarrhea Osteoporosis 733.00 Active Hoep Benavidez MD PhD Osteoporosis, unspecified Dysuria 788.1 [...] cohn MD PhD UNSPECIFIED VENOUS INSUFFICIENCY ICD-459.81 [address]bins [address]ive Adam Yates MD ADENOCARCINOMA, 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 Inac tive Hope Benavidez MD PhD Hyperkalemia ICD-276.7 Inactive Hope Benavidez MD PhD Health maintenance exam ICD-V70.0 Bam Yates MD Weakness ICD-780.79 Inactive Hope Benavidez MD P hD Aftercare following surgery of the teeth,oral cavity a nd digestive system, NEC ICD-V58.75 Inactive Adam Yates MD Colon cancer ICD-153.9 Bam luna MD Asymptomatic postmenopausal status (age-related) (natural) I CD-V49.81 Inactive Hope Benavidez MD PhD Dysuria ICD-788.1 Inactive Hope Benavidez MD PhD 201 05/19/01 Medication List Medication Instructions Start Date Stop Date Generic Name NDC Status Provider Patient Instruction ATENOLOL 25 MG ORAL TABS 1/2 pill by mouth daily, for headac hes, blood pressure ATENOLOL 54247845035 Active Hope Benavidez MD PhD Active PROPRANOLOL HCL 80 MG TABS 1 tab tue. and thur. 04/10 PROPRANOLOL HCL 66832141232 No Longer Active Hope Benavidez MD PhD A ctive IRON 325 (65 FE) MG TABS 1 every other day FERROUS SULFATE 16171479539 Active Hope Benavidez MD PhD Active VITAMIN D3 4000 IU 1 tab 3 times daily VITAMIN D3 4000 IU No Longer Active Hope Benavidez MD PhD Active CYANOCOBALAMIN 1000 MCG/ML INJ SOLN 1 injection every 2 weeks 01/09 CYANOCOBALAMIN 69750143105 Active Laura Elder Active BACTRIM DS 800-160 MG TABS 1 pill by mouth twice daily, for UTI SULFAMETHOXAZOLE-TRIMETHOPRIM 66168368139 No Longer Active Lisa attila Benavidez MD PhD Active PROLIA 60 MG/ML SOLN 1 shot every 6 months for osteoprosis DENOSUMAB 06884582334 Active Hope Benavidez MD PhD Active CALCIUM + D + K 750-500-40 MG-UNT-MCG TABS 1 tab by mouth tw ice daily CALCIUM-VITAMIN D-VITAMIN K 27138789462 Active Hope landers MD PhD Active DAILY VALUE MULTIVITAMIN TABS 1 tab by mouth twice daily MULTIPLE VITAMIN 21067103480 Active Hope Benavidez MD PhD Active FISH OIL 306 MG CAPS 1 tab by mouth three times daily OMEGA-3 FATTY ACIDS 33491615389 Active Hope Benavidez MD PhD Active LUTEIN 10 MG TABS 1 tab daily LUTEIN 94444436642 Act cash Hope Benavidez MD PhD Active FLORANEX PACK 1 pack three times daily, for bowel health LACTOBACILLUS 13431844141 Active Hope Benavidez MD PhD Active LOMOTIL 2.5-0.025 MG TABS 1 tab by mouth prn DIPHENOXYLATE-ATROPINE 86135675938 Active Hope Benavidez MD PhD Active TRIAMTERENE-HCTZ 37.5-25 MG TABS 1 tab by mouth daily TRIAMTERENE-HCTZ 60190689919 Active Hope Benavidez MD PhD Acti ve MAGNESIUM GLUCONATE 250 MG TABS 1 tab tid MAGN ESIUM GLUCONATE 84629633887 Active Adam Yates MD Active CYCLOBENZAPRINE HCL 10 MG TABS 1 tablet by mouth three times daily as needed for headaches CYCLOBENZAPRINE HCL 42931370509 No Longe r Active Adam Yates MD Active OMEPRAZOLE 20 MG CPDR 1 tablet by mouth daily for GERD OMEPRAZOLE 71163331604 No Longer Active Adam Yates MD A ctive ZOFRAN 8 MG TABS 1 tab by mouth every 12 hours prn 201 05/16/09 ONDANSETRON HCL 10454282450 No Longer Active Adam Yates MD Active PHENADOZ 25 MG SUPP 1 every 4 hrs. PRN PROMETHA ZINE HCL 23402882841 No Longer Active Adam Yates MD Active POTASSIUM CHLORIDE 20 MEQ PACK by mouth twice a day prn POTASSIUM CHLORIDE 85266153052 No Longer Active Adam Yates MD Active PROMETHAZINE HCL 25 MG TABS 1 Q. 4 hr. PRN PROM ETHAZINE HCL 28107003448 No Longer Active Adam Yates MD Active INNOPRAN XL 120 MG [id number] Take one by mouth daily 2 PROPRANOLOL HCL SR BEADS 12065203102 No Longer Active Adam Yates MD A ctive FLAGYL 500 MG TABS 1 pill by mouth three times daily, for diarrh ea METRONIDAZOLE 02799387995 No Longer Active Hope Benavidez MD PhD Active DYAZIDE 37.5-25 MG CAPS 1 qd TRIAMTERENE-HC TZ 70619695310 No Longer Active Hope Benavidez MD PhD Active PROZAC 20 MG CAPS 1 q d FLUOXETINE HCL 60190 045691 No Longer Active Hope Benavidez MD PhD Active SIMVASTATIN 40 MG TABS 1 qd SIMVASTATIN 004 09081708 No Longer Active Adam Yates MD Active MELOXICAM 15 MG TABS 1 qd MELOXICAM 2414471 4687 No Longer Active Adam Yates MD Active IMODIUM A-D 2 MG TABS 2 onset at diarrhea and prn. LOPERAMIDE HCL 34446946097 Active Hope Benavidez MD PhD Active EXCEDRIN EXTRA STRENGTH 250-250-65 MG TABS 1-2 q6h PRN headache 201 04/16/21 [id number] 82963698938 Active Hope Benavidez MD PhD Active FLAGYL 500 MG TABS 1 qid METRONIDAZOLE 81897 301708 No Longer Active Adam Yates MD Active LEVAQUIN 750 MG TABS 1 qd LEVOFLOXACIN 5486 0568340 No Longer Active Adam Yates MD Active ADULT ASPIRIN LOW STRENGTH 81 MG TBDP 1 qd A SPIRIN 63415430679 Active Hope Benavidez MD PhD Active LEVAQUIN 750 MG TABS 1 qd LEVAQUIN 750 MG T ABS 528314 LEVOFLOXACIN Inactive FLAGYL 500 MG TABS 1 qid FLAGYL 500 MG TABS 043411 METRONIDAZOLE Inactive MELOXICAM 15 MG TABS 1 qd MELOXICAM 15 MG T ABS 442409 MELOXICAM Inactive SIMVASTATIN 40 MG TABS 1 qd SIMVASTATIN 40 MG TABS 829592 SIMVASTATIN Inactive PROZAC 20 MG CAPS 1 q d PROZAC 20 MG CAPS 31 0385 FLUOXETINE HCL Inactive DYAZIDE 37.5-25 MG CAPS 1 qd DYAZIDE 37.5 -25 MG CAPS 021999 TRIAMTERENE-HCTZ Inactive INNOPRAN XL 120 MG [id number] Take one by mouth daily 2 INNOPRAN XL 120 MG [id number] PROPRANOLOL HCL SR BEADS Inactive PROMETHAZINE HCL 25 MG TABS 1 Q. 4 hr. PRN PROMETHAZINE HCL 25 MG TABS 392120 PROMETHAZINE HCL Inactive POTASSIUM CHLORIDE 20 MEQ PACK by mouth twice a day prn POTASSIUM CHLORIDE 20 MEQ PACK 579336 POTASSIUM CHLORIDE Inactive PHENADOZ 25 MG SUPP 1 every 4 hrs. PRN PHENADOZ 2 5 MG SUPP 668614 PROMETHAZINE HCL Inactive ZOFRAN 8 MG TABS 1 tab by mouth every 12 hours prn 201 05/16/09 ZOFRAN 8 MG TABS 177808 ONDANSETRON HCL Inactive OMEPRAZOLE 20 MG CPDR 1 tablet by mouth daily for GERD OMEPRAZOLE 20 MG CPDR 462294 OMEPRAZOLE Inactive CYCLOBENZAPRINE HCL 10 MG TABS 1 tablet by mouth three times daily as needed for headaches CYCLOBENZAPRINE HCL 10 MG TABS 635706 CYCLOBENZAPRINE HCL Inactive VITAMIN D3 4000 IU 1 tab 3 times daily VITAMIN D3 4000 IU Inactive PROPRANOLOL HCL 80 MG TABS 1 tab tue. and thur. 04/10 PROPRANOLOL HCL 80 MG TABS 338060 PROPRANOLOL HCL Inactive FLAGYL 500 MG TABS 1 pill by mouth three times daily, for diarrh ea FLAGYL 500 MG TABS 037972 METRONIDAZOLE Inactive BACTRIM DS 800-160 MG TABS [...] Range Description blood pressure, diastolic - 8462-4 84 mm[Hg] BP dobson blood pressure, systolic - 8480-6 142 mm[Hg] BP sys height E&M - 8302-2 62.5 [in_us] Bdy h eight pulse rate E&M - 8867-4 73 /min H eart rate temperature E&M 97.9 [degF] Body temp erature weight E&M - 3141-9 142 [lb_av] Weigh t Measured blood pressure, diastolic - 8462-4 56 mm[Hg] [...] - 3141-9 109 [lb_av] Weigh t Measured Diagnostic Results Date Name Value Unit Range Description Chart Maintenance: labs added to [employer] et - Chemistry magnesium, serum 2.0 mg/dL Chart Maintenance: Outside labs entered on [employer] - Chemistry sodium, serum 139 mmol/L potassium, serum 3.9 mmol/L blood glucose 85 mg/dL creatinine, serum 1.26 mg/dL aspartate aminotransferase (SGOT), serum 33 U/L alanine aminotransferase (SGPT), serum 44 U/L alkaline phosphatase, serum 127 U/L Chart Maintenance: Outside labs entered on [employer] - Hematology leukocyte count, blood 4.6 10*3/mm3 hemoglobin, blood 13.6 g/dL platelet count 162 10*3/mm3 Lab Report: BMP - Chemistry sodium, serum 141 mmol/L potassium, serum 4.2 mmol/L blood glucose 66 mg/dL creatinine, serum 1.16 mg/dL Lab Report: CBC W/DIFF, Comp. Metabolic Panel - Chemistry sodium, serum 138 mmol/L 192-242 1943/08/14 potassium, serum 4.0 mmol/L 3.5-5.2 chloride, serum [...] 0.40 mg/dL 0.00-1.00 sodium, serum 145 mmol/L 116-236 3563/02/02 potassium, serum 4.2 mmol/L 3.5-5.2 chloride, serum 104 mmol/L 98-107 carbon dioxide, venous blood 28.3 mmol/L 21.0-32 .0 blood glucose 93 mg/dL 65-110 urea nitrogen, blood 32 mg/dL 7-18 creatinine, serum 1.40 mg/dL 0.60-1.30 alanine aminotransferase (SGPT), serum 73 U/L 12-78 aspartate aminotransferase (SGOT), serum 42 U/L 15-37 calcium, serum 9.2 mg/dL 8.5-10.1 bilirubin, serum, total 0.40 mg/dL 0.00-1.00 sodium, serum 142 mmol/L 459-636 5137/04/27 potassium, serum 3.2 mmol/L 3.5-5.2 chloride, serum 101 mmol/L 98-107 carbon dioxide, venous blood 32.1 mmol/L 21.0-32 .0 blood glucose 115 mg/dL 65-110 urea nitrogen, blood 28 mg/dL 7-18 creatinine, serum 1.60 mg/dL 0.60-1.30 alanine aminotransferase (SGPT), serum 71 U/L 12-78 aspartate aminotransferase (SGOT), serum 46 U/L 15-37 [...] 11 .6-14.8 platelet count 155 10^3/MM^3 10*3/mm3 736-583 4825/04/27 leukocyte count, blood 5.3 10^3/MM^3 10*3/mm3 4.6-10.2 neutrophils as percent of blood leukocytes 56.9 % 42.2-75.2 monocytes as percent of blood leukocytes 5.9 % 1.7-9.3 lymphocytes as percent of blood leukocytes 34.0 % 20.5-51.1 erythrocyte (RBC) count 4.15 10^6/MM^3 10*6/mm3 4.04-5.4 8 hemoglobin, blood 14.4 g/dL 12.0-16.0 hematocrit, blood 42.0 % 36.0-46.0 mean corpuscular volume, RBC 101 fL 80-97 mean corpuscular hemoglobin, RBC 34.7 pg 27. 0-31.2 mean corpuscular hemoglobin concentration, RBC 34.4 G/DL % 31.8-35.4 red blood cell distribution width 13.5 % 11 .6-14.8 platelet count 213 10^3/MM^3 10*3/mm3 050-450 7480/08/14 leukocyte count, blood 5.8 10^3/MM^3 10*3/mm3 4.6-10.2 [...] Serology carcinoembryonic antigen 0.9 ng/mL carcinoembryonic antigen 1.3 ng/mL carcinoembryonic antigen 1.2 ng/mL Lab Report: cmp - Chemistry sodium, serum 142 mmol/L potassium, serum 4.0 mmol/L blood glucose 115 mg/dL creatinine, serum 1.24 mg/dL Lab Report: Comp. Metabolic Panel - Chem istry sodium, serum 143 mmol/L 341-170 6528/04/15 potassium, serum 3.4 mmol/L 3.5-5.2 chloride, serum 101 mmol/L 98-107 carbon dioxide, venous blood 35.4 mmol/L 21.0-32 .0 blood glucose 92 mg/dL 65-110 urea nitrogen, blood 29 mg/dL 7-18 creatinine, serum 1.30 mg/dL 0.60-1.30 alanine aminotransferase (SGPT), serum 62 U/L 12-78 aspartate aminotransferase (SGOT), serum 48 U/L 15-37 calcium, serum 8.8 mg/dL 8.5-10.1 bilirubin, serum, total 0.40 mg/dL 0.00-1.00 Lab Report: Lipid Panel - Chemistry cholesterol, serum 209 mg/dL 468-143 4640/09/11 triglyceride, serum, fasting 113 mg/dL 30-200 HDL [...] semiquantitative 7.0 5.0-8.5 Lab Report: VITAMIN D, 25-HYDROXY/96140, MAGNESIUM/622 - Chemistry vitamin D 25-hydroxy, serum 41 ng/mL 30-100 Encounters Code Encounter Date Provider Facility CPT-68425 Level 4 Est. Patient 12:08:30 HAND COLLATOR Hope cohn MD PhD [facility] CPT-00959 Level 4 Est. Patient 19:08:42 HAND COLLATOR Hope cohn MD PhD [facility] CPT-85360 Level 4 Est. Patient 20:04:51 CDT Hope cohn MD PhD [facility] CPT-01219 Level 3 New Patient 01:46:11 HAND COLLATOR Hope landers MD PhD [facility] Procedures Code Procedure Name Date Entry Date Standard Desc ription CPT-OV Office Visit 15:58:06 CDT CPT-J0897 Prolia 60 mg 08:45:38 CDT CPT-48637 Abx/Therapy Injection 08:45:38 CDT CPT-J3420 Vitamin B12 1000mcg (Cyanocobalamin) 09:26:20 HAND COLLATOR CPT-17216 Abx/Therapy Injection 09:26:20 HAND COLLATOR CPT-J3420 Vitamin B12 1000mcg (Cyanocobalamin) 09:44:40 HAND COLLATOR CPT-51863 Abx/Therapy Injection 09:44:40 HAND COLLATOR CPT-J3420 Vitamin B12 1000mcg (Cyanocobalamin) 09:15:54 HAND COLLATOR CPT-07956 Abx/Therapy Injection 09:15:54 HAND COLLATOR CPT-J3420 Vitamin B12 1000mcg (Cyanocobalamin) 09:46:44 HAND COLLATOR CPT-49839 Abx/Therapy Injection 09:46:44 HAND COLLATOR CPT-J3420 Vitamin B12 1000mcg (Cyanocobalamin) 09:47:34 HAND COLLATOR CPT-16134 Abx/Therapy Injection 09:47:34 HAND COLLATOR CPT-J3420 Vitamin B12 1000mcg (Cyanocobalamin) 14:35:50 HAND COLLATOR CPT-J3420 Vitamin B12 1000mcg (Cyanocobalamin) 09:25:05 HAND COLLATOR CPT-79130 Abx/Therapy Injection 09:25:05 HAND COLLATOR CPT-G0008 Administration of Influenza Virus Vaccine 13:36:47 CDT CPT-84067 Fluzone High-Dose Intramuscular Suspension 11/15 13:36:47 CDT CPT-J0897 Prolia 60 mg 08:50:41 CDT CPT-98030 Abx/Therapy Injection 08:50:41 CDT CPT-30052 Bone Density 12:06:12 CDT CPT-49229 Bone Density 08:54:40 CDT CPT-OV Office Visit 15:37:02 CDT CPT-77711 Postop F/U Visit 15:47:49 CDT CPT-36771 Postop F/U Visit 15:21:02 CDT CPT-TCMH Transitional Care Mgmt-High 07:52:27 CDT 20 20/06/01 CPT-18401 Venipuncture Draw Fee 13:51:18 CDT CPT-55371 Venipuncture Draw Fee 10:14:55 HAND COLLATOR CPT-31623 Venipuncture Draw Fee 13:39:45 HAND COLLATOR CPT-OV Office Visit 15:11:22 HAND COLLATOR CPT-89285 Venipuncture Draw Fee 09:20:49 HAND COLLATOR CPT-62254 Venipuncture Draw Fee 16:52:15 HAND COLLATOR CPT-49319 Venipuncture Draw Fee 10:37:24 HAND COLLATOR CPT-80001 Venipuncture Draw Fee 08:21:21 HAND COLLATOR CPT-38287 Venipuncture Draw Fee 08:30:20 HAND COLLATOR CPT-22537 Venipuncture Draw Fee 14:53:21 HAND COLLATOR CPT-28261 Venipuncture Draw Fee 09:40:56 HAND COLLATOR CPT-71723 Venipuncture Draw Fee 10:30:47 HAND COLLATOR CPT-27167 Venipuncture Draw Fee 10:46:17 HAND COLLATOR CPT-12751 Venipuncture Draw Fee 11:12:45 HAND COLLATOR CPT-12400 Venipuncture Draw Fee 09:53:33 HAND COLLATOR CPT-81190 Venipuncture Draw Fee 11:53:51 HAND COLLATOR CPT-52999 Venipuncture Draw Fee 10:33:50 HAND COLLATOR CPT-92298 Venipuncture Draw Fee 10:05:01 HAND COLLATOR CPT-56858 Venipuncture Draw Fee 14:32:52 HAND COLLATOR CPT-15560 Venipuncture Draw Fee 09:46:13 HAND COLLATOR CPT-16668 Venipuncture Draw Fee 11:34:27 HAND COLLATOR CPT-55773 Venipuncture Draw Fee 13:17:16 HAND COLLATOR CPT-34300 Venipuncture Draw Fee 12:05:39 CDT CPT-69265 Venipuncture Draw Fee 12:49:12 CDT CPT-84518 Venipuncture Draw Fee 12:37:18 CDT CPT-80354 Venipuncture Draw Fee 10:57:11 CDT CPT-06330 Venipuncture Draw Fee 13:47:40 CDT CPT-03852 Venipuncture Draw Fee 10:02:17 CDT CPT-03365 TB Tubersol 17:32:32 CDT CPT-OV Office Visit 16:21:53 CDT CPT-OV Office Visit 15:49:22 CDT CPT-OV Office Visit 17:16:31 CDT CPT-OV Office Visit 10:43:31 CDT
--- OUTSIDE RECORDS SUMMARY | 2019-02-09 12:22 | XMS REPORT | Clinical Summary ---
Author Author Renaldo, Florecita Munoz Organization [facility] [employer] Address Unknown Phone Unavailable Allergies, Adverse Reactions, [...] PhD Hyperpotassemia GERD 530.81 Resolved Kylie Yokum CONTRACT ADMIN Esophageal reflux Health maintenance exam V70.0 Resolved Adolfo Yates MD Routine general medical examination at a health care facility Anemia 285.9 Resolved Kylie Holt CONTRACT ADMIN Anemia, unspecified Personal history of malignant neoplasm [...] neuropathy Vitamin B12 deficiency 266.2 Active Citlaly Marmolejof ord RMA Other B-complex deficiencies Adenocarcinoma, ascending colon 153.6 Resolved 2015 Adam Yates MD Malignant neoplasm of ascending colon Sebaceous cyst, scalp 706.2 Resolved Kylie Holt CONTRACT ADMIN Sebaceous cyst Cervical lymphadenopathy, anterior, left 785.6 Resolv ed Kylie Holt CONTRACT ADMIN Enlargement of lymph nodes Need for prophylactic vaccination and inoculation against in fluenza V04.81 Resolved Adam Yates MD Need for prophylactic vaccination and inoculation against influenza Preventive health care V70.0 Active Kylie Holt CONTRACT ADMIN Routine general medical examination at a health care facility Thyroid nodule, left 241.0 Active Kylie Gonzalez PRN Nontoxic uninodular goiter Screening mammogram V76.12 Active Kylie Holt AP RN Other screening mammogram Mandy 706.2 Active Adam Yates MD Sebaceous cyst Colon cancer, ascending 153.6 Active Kelsy F aux RMA Malignant neoplasm of ascending colon ABDOMINAL PAIN, RIGHT LOWER QUADRANT ICD-789.03 Inactive Kina Joshua CONTRACT ADMIN ADENOCARCINOMA, COLON, 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 Dick Yates MD ABDOMINAL PAIN, GENERALIZED ICD-789.07 Inactive Hope Benavidez MD PhD FEVER UNSPECIFIED ICD-780.60 Inactive Hope cohn MD PhD UNSPECIFIED VENOUS INSUFFICIENCY ICD-459.81 [place] ctive Adam Yates MD ADENOCARCINOMA, 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 Inac abdelrahman Benavidez MD PhD Hyperkalemia ICD-276.7 Inactive Hope Benavidez MD PhD GERD ICD-530.81 Inactive Kylie Holt CONTRACT ADMIN 2015 Health maintenance exam ICD-V70.0 Inactive Adolfo Yates MD Anemia ICD-285.9 Inactive Kylie Holt CONTRACT ADMIN 07/24 Weakness ICD-780.79 Inactive Hope Benavidez MD [...] Sebaceous cyst, scalp ICD-706.2 Inactive Tracy Holt CONTRACT ADMIN Cervical lymphadenopathy, anterior, left ICD-785.6 Inactive Kylie Holt CONTRACT ADMIN Need for prophylactic vaccination and inoculation against in fluenza ICD-V04.81 Bam Yates MD Medication List Medication Instructions Start Date Stop Date Generic Name NDC Status Provider Patient Instruction COQ10 100 MG ORAL CAPS 1 daily COENZYME Q10 872327335 20 Active MadisonLETY Haley Active VITAMIN D3 2000 UNIT ORAL CAPS Melaleuca-One daily CHOLECALCIFEROL 13866075094 Active Kylie Holt CONTRACT ADMIN Active PROBIOTIC DAILY ORAL CAPS Take one daily PROBIOTIC PRODUCT 09608257178 Active Kylie Lundum CONTRACT ADMIN Active IRON 325 (65 FE) MG TABS 1 every other day FERR OUS SULFATE 75113200356 No Longer Active Kylie Lundum CONTRACT ADMIN Active FLORANEX PACK 1 pack three times daily, for bowel health LACTOBACILLUS 96522302493 No Longer Active Kylie Holt CONTRACT ADMIN Active LOMOTIL 2.5-0.025 MG TABS 1 tab by mouth prn 4 DIPHENOXYLATE-ATROPINE 75376665732 No Longer Active Kylie Lundum CONTRACT ADMIN Active MAGNESIUM GLUCONATE 250 MG TABS 1 tab tid 4 MAGNESIUM GLUCONATE 11742352513 No Longer Active Kylie Lundum CONTRACT ADMIN Active CYANOCOBALAMIN 1000 MCG/ML INJ SOLN 1 injection every 2 weeks 20 20/01/03 CYANOCOBALAMIN 06416866752 No Longer Active Kylie Lundum CONTRACT ADMIN Active ATENOLOL 25 MG ORAL TABS 1/2 pill by mouth daily, for headac hes, blood pressure ATENOLOL 91544725551 Active Kylie Lundum CONTRACT ADMIN Active PROPRANOLOL HCL 80 MG TABS 1 tab tue. and thur. 04/10 PROPRANOLOL HCL 40662341102 No Longer Active Hope Benavidez MD PhD A ctive VITAMIN D3 4000 IU 1 tab 3 times daily VITAMIN D3 4000 IU No Longer Active Hope Benavidez MD PhD Active BACTRIM DS 800-160 MG TABS 1 pill by mouth twice daily, for UTI SULFAMETHOXAZOLE-TRIMETHOPRIM 03455403071 No Longer Active A attila Benavidez MD PhD Active PROLIA 60 MG/ML SOLN 1 shot every 6 months for osteoprosis DENOSUMAB 22649791098 Active Hope Benavidez MD PhD Active CALCIUM + D + K 750-500-40 MG-UNT-MCG TABS 1 tab by mouth tw ice daily CALCIUM-VITAMIN D-VITAMIN K 66067645532 Active Hope landers MD PhD Active DAILY VALUE MULTIVITAMIN TABS 1 tab by mouth twice daily MULTIPLE VITAMIN 91221001635 Active Hope Benavidez MD PhD Active FISH OIL 306 MG CAPS 1 tab by mouth three times daily OMEGA-3 FATTY ACIDS 91120466871 Active Hope Benavidez MD PhD Active LUTEIN 10 MG TABS 1 tab daily LUTEIN 88344816577 Act cash Hope Benavidez MD PhD Active TRIAMTERENE-HCTZ 37.5-25 MG TABS 1 tab by mouth daily TRIAMTERENE-HCTZ 65549762957 Active Kylie Holt CONTRACT ADMIN Active CYCLOBENZAPRINE HCL 10 MG TABS 1 tablet by mouth three times daily as needed for headaches CYCLOBENZAPRINE HCL 03489430714 No Longe r Active Adam Yates MD Active OMEPRAZOLE 20 MG CPDR 1 tablet by mouth daily for GERD OMEPRAZOLE 60784390240 No Longer Active Adam Yates MD A ctive ZOFRAN 8 MG TABS 1 tab by mouth every 12 hours prn 201 05/16/09 ONDANSETRON HCL 07428504759 No Longer Active Adam Yates MD Active PHENADOZ 25 MG SUPP 1 every 4 hrs. PRN PROMETHA ZINE HCL 18058511826 No Longer Active Adam Yates MD Active POTASSIUM CHLORIDE 20 MEQ PACK by mouth twice a day prn POTASSIUM CHLORIDE 48016163097 No Longer Active Adam Yates MD Active PROMETHAZINE HCL 25 MG TABS 1 Q. 4 hr. PRN PROM ETHAZINE HCL 74388216532 No Longer Active Adam Yates MD Active INNOPRAN XL 120 MG DI00B-ERY Take one by mouth daily 2 PROPRANOLOL HCL SR BEADS 36332805274 No Longer Active Adam Yates MD A ctive FLAGYL 500 MG TABS 1 pill by mouth three times daily, for diarrh ea METRONIDAZOLE 90229996781 No Longer Active Hope Benavidez MD PhD Active DYAZIDE 37.5-25 MG CAPS 1 qd TRIAMTERENE-HC TZ 99958098564 No Longer Active Hope Benavidez MD PhD Active PROZAC 20 MG CAPS 1 q d FLUOXETINE HCL 49513 272843 No Longer Active Hope Benavidez MD PhD Active SIMVASTATIN 40 MG TABS 1 qd SIMVASTATIN 004 28654265 No Longer Active Adam Yates MD Active MELOXICAM 15 MG TABS 1 qd MELOXICAM 1702809 0609 No Longer Active Adam Yates MD Active IMODIUM A-D 2 MG TABS 2 onset at diarrhea and prn. LOPERAMIDE HCL 88652817602 Active Hope Benavidez MD PhD Active EXCEDRIN EXTRA STRENGTH 250-250-65 MG TABS 1-2 q6h PRN headache 201 04/16/21 [id number]-EDVQRMMV 25879290156 Active Hope Benavidez MD PhD Active FLAGYL 500 MG TABS 1 qid METRONIDAZOLE 60703 239621 No Longer Active Adam Yates MD Active LEVAQUIN 750 MG TABS 1 qd LEVOFLOXACIN 5486 9108963 No Longer Active Adam Yates MD Active ADULT ASPIRIN LOW STRENGTH 81 MG TBDP 1 qd A SPIRIN 03517992598 Active Hope Benavidez MD PhD Active LEVAQUIN 750 MG TABS 1 qd LEVAQUIN 750 MG T ABS 831254 LEVOFLOXACIN Inactive FLAGYL 500 MG TABS 1 qid FLAGYL 500 MG TABS 525274 METRONIDAZOLE Inactive MELOXICAM 15 MG TABS 1 qd MELOXICAM 15 MG T ABS 904193 MELOXICAM Inactive SIMVASTATIN 40 MG TABS 1 qd SIMVASTATIN 40 MG TABS 080299 SIMVASTATIN Inactive PROZAC 20 MG CAPS 1 q d PROZAC 20 MG CAPS 31 0385 FLUOXETINE HCL Inactive DYAZIDE 37.5-25 MG CAPS 1 qd DYAZIDE 37.5 -25 MG CAPS 841595 TRIAMTERENE-HCTZ Inactive INNOPRAN XL 120 MG [id number] Take one by mouth daily 2 INNOPRAN XL 120 MG [id number] PROPRANOLOL HCL SR BEADS Inactive PROMETHAZINE HCL 25 MG TABS 1 Q. 4 hr. PRN PROMETHAZINE HCL 25 MG TABS 488287 PROMETHAZINE HCL Inactive POTASSIUM CHLORIDE 20 MEQ PACK by mouth twice a day prn POTASSIUM CHLORIDE 20 MEQ PACK 3681410 POTASSIUM CHLORIDE Inactive PHENADOZ 25 MG SUPP 1 every 4 hrs. PRN PHENADOZ 2 5 MG SUPP 297949 PROMETHAZINE HCL Inactive ZOFRAN 8 MG TABS 1 tab by mouth every 12 hours prn 201 05/16/09 ZOFRAN 8 MG TABS 154228 ONDANSETRON HCL Inactive OMEPRAZOLE 20 MG CPDR 1 tablet by mouth daily for GERD OMEPRAZOLE 20 MG CPDR 489272 OMEPRAZOLE Inactive CYCLOBENZAPRINE HCL 10 MG TABS 1 tablet by mouth three times daily as needed for headaches CYCLOBENZAPRINE HCL 10 MG TABS 972796 CYCLOBENZAPRINE HCL Inactive VITAMIN D3 4000 IU 1 tab 3 times daily VITAMIN D3 4000 IU Inactive PROPRANOLOL HCL 80 MG TABS 1 tab tue. and thur. 04/10 PROPRANOLOL HCL 80 MG TABS 906971 PROPRANOLOL HCL Inactive CYANOCOBALAMIN 1000 MCG/ML INJ SOLN 1 injection every 2 weeks 20 20/01/03 CYANOCOBALAMIN 1000 MCG/ML INJ SOLN 555215 CYANOCOBALAM IN Inactive MAGNESIUM GLUCONATE 250 MG TABS 1 tab tid 4 MAGNESIUM GLUCONATE 250 MG TABS 215064 MAGNESIUM GLUCONATE Inactive LOMOTIL 2.5-0.025 MG TABS 1 tab by mouth prn 4 LOMOTIL 2.5- 0.025 MG TABS 3389776 DIPHENOXYLATE-ATROPINE Inactive FLORANEX PACK 1 pack three times daily, for bowel health FLORANEX PACK LACTOBACILLUS Inactive IRON 325 (65 FE) MG TABS 1 every other day IRON 325 (65 FE) MG TABS 728924 FERROUS SULFATE Inactive FLAGYL 500 MG TABS 1 pill by mouth three times daily, for diarrh ea FLAGYL 500 MG TABS 882616 METRONIDAZOLE Inactive BACTRIM DS 800-160 MG TABS 1 pill by mouth twice daily, for UTI BACTRIM DS 800-160 MG TABS 144351 SULFAMETHOXAZOLE-TRIM ETHOPRIM Inactive Advance Directives Directive Description [...] 11 .0-15.0 platelet count 157 THOUSAND/UL 10*3/mm3 223-370 7024/04/20 mean platelet volume 8.9 fL 7.5-12.5 Lab Report: CBC W/DIFF, Comp. Metabolic Panel, Thyroid Stimulating Hormo ... - Chemistry sodium, serum 139 mmol/L 340-052 6475/10/20 carbon dioxide, venous blood 32.2 mmol/L 21.0-32 [...] - Chemi stry cholesterol, serum 200 mg/dL 810-473 2510/11/22 triglyceride, serum, fasting 129 mg/dL 30-200 HDL cholesterol, serum 56 mg/dL 32-96 LDL cholesterol, serum 118 mg/dL 0-130 calcium, serum 9.0 mg/dL 8.5-10.1 Lab Report: MicroAlb Random w/creat/6517 - Urinalysis microalbumin/total urine volume 8 mg/L Units converted. See lab report for original value. microalbumin/creatinine ratio, urine 15 MCG/MG CREAT mg/L <30 Encounters Code Encounter Date Provider Facility CPT-41045 Level 3 Est. Patient 16:26:30 CDT Kina blackmon APRN [facility] CPT-86428 Level 3 New Patient 16:22:01 CARDIAC SURGEON [facility] CPT-53879 Level 4 Est. Patient 17:00:48 CDT Kylie Lund [facility] CPT-52207 Level 3 Est. Patient 13:15:54 CDT Kylie Lund [facility] CPT-32681 Level 3 Est. Patient 09:10:11 CDT Kylie Lund [facility] CPT-16826 Level 4 Est. Patient 12:08:30 CARDIAC SURGEON Hope cohn MD [facility] CPT-72844 Level 4 Est. Patient 19:08:42 CARDIAC SURGEON Hope cohn MD [facility] CPT-15965 Level 4 Est. Patient 20:04:51 CDT Hope cohn MD [facility] CPT-34221 Level 3 New Patient 01:46:11 CARDIAC SURGEON Hope landers MD PhD [facility] Procedures Code Procedure Name Date Entry Date Standard Desc ription CPT-J0897 Prolia 60 mg 14:14:16 CARDIAC SURGEON CPT-44661 Abx/Therapy Injection 14:14:15 CARDIAC SURGEON CPT-90649 Lipid - LAB USE ONLY 10:01:52 CARDIAC SURGEON 2 CPT-04766 Calcium - LAB USE ONLY 10:01:51 CARDIAC SURGEON CPT-59587 Venipuncture Draw Fee 10:01:51 CARDIAC SURGEON CPT-LR Lesion Removal 16:22:01 CARDIAC SURGEON CPT-01863 TSH - LAB USE ONLY 14:26:02 CDT CPT-04206 CMP - LAB USE ONLY 14:26:01 CDT CPT-52775 CBC with Diff - LAB USE ONLY 14:26:01 CDT 2 CPT-61393 Venipuncture Draw Fee 14:26:01 CDT CPT-80874 First Vx - Ix admin for Medicare patients 13:27:08 CDT CPT-30751 Fluzone High-Dose Intramuscular Suspension 11/26 13:27:08 CDT CPT-G0438 Initial Annual Wellness Exam 14:19:57 CD T CPT-G0009 Administration of Pneumococcal Vaccine 9 11:36:25 CDT CPT-11140 Prevnar 13 Intramuscular Suspension 1 1:36:25 CDT CPT-08936 Prevnar 13 Intramuscular Suspension 1 0:40:58 CDT CPT-J0897 Prolia 60 mg 10:37:16 CDT CPT-49280 Abx/Therapy Injection 10:37:16 CDT CPT-J0897 Prolia 60 mg 16:09:34 CARDIAC SURGEON CPT-J0897 Prolia 60 mg 11:10:35 CARDIAC SURGEON CPT-85330 Abx/Therapy Injection 11:10:35 CARDIAC SURGEON CPT-000 Give Appropriate Flu Vaccine 17:01:15 CARDIAC SURGEON 2 CPT-75132 Fluzone High Dose (65+) 15:03:08 CARDIAC SURGEON 02/15 CPT-10507 Immunization Single Admin 15:03:08 CARDIAC SURGEON 2014 CPT-OV Office Visit 15:58:06 CDT CPT-J0897 Prolia 60 mg 08:45:38 CDT CPT-60004 Abx/Therapy Injection 08:45:38 CDT CPT-J3420 Vitamin B12 1000mcg (Cyanocobalamin) 09:26:20 CARDIAC SURGEON CPT-04433 Abx/Therapy Injection 09:26:20 CARDIAC SURGEON CPT-J3420 Vitamin B12 1000mcg (Cyanocobalamin) 09:44:40 CARDIAC SURGEON CPT-33572 Abx/Therapy Injection 09:44:40 CARDIAC SURGEON CPT-J3420 Vitamin B12 1000mcg (Cyanocobalamin) 09:15:54 CARDIAC SURGEON CPT-13618 Abx/Therapy Injection 09:15:54 CARDIAC SURGEON CPT-J3420 Vitamin B12 1000mcg (Cyanocobalamin) 09:46:44 CARDIAC SURGEON CPT-01759 Abx/Therapy Injection 09:46:44 CARDIAC SURGEON CPT-J3420 Vitamin B12 1000mcg (Cyanocobalamin) 09:47:34 CARDIAC SURGEON CPT-51123 Abx/Therapy Injection 09:47:34 CARDIAC SURGEON CPT-J3420 Vitamin B12 1000mcg (Cyanocobalamin) 14:35:50 CARDIAC SURGEON CPT-J3420 Vitamin B12 1000mcg (Cyanocobalamin) 09:25:05 CARDIAC SURGEON CPT-61226 Abx/Therapy Injection 09:25:05 CARDIAC SURGEON CPT-G0008 Administration of Influenza Virus Vaccine 13:36:47 CDT CPT-27755 Fluzone High-Dose Intramuscular Suspension 11/15 13:36:47 CDT CPT-J0897 Prolia 60 mg 08:50:41 CDT CPT-53081 Abx/Therapy Injection 08:50:41 CDT CPT-83473 Bone Density 12:06:12 CDT CPT-11905 Bone Density 08:54:40 CDT CPT-OV Office Visit 15:37:02 CDT CPT-87172 Postop F/U Visit 15:47:49 CDT CPT-50758 Postop F/U Visit 15:21:02 CDT CPT-TCMH Transitional Care Mgmt-High 07:52:27 CDT 20 20/06/01 CPT-30564 Venipuncture Draw Fee 13:51:18 CDT CPT-50111 Venipuncture Draw Fee 10:14:55 CARDIAC SURGEON CPT-93565 Venipuncture Draw Fee 13:39:45 CARDIAC SURGEON CPT-OV Office Visit 15:11:22 CARDIAC SURGEON CPT-22420 Venipuncture Draw Fee 09:20:49 CARDIAC SURGEON CPT-57615 Venipuncture Draw Fee 16:52:15 CARDIAC SURGEON CPT-64712 Venipuncture Draw Fee 10:37:24 CARDIAC SURGEON CPT-73264 Venipuncture Draw Fee 08:21:21 CARDIAC SURGEON CPT-86012 Venipuncture Draw Fee 08:30:20 CARDIAC SURGEON CPT-72032 Venipuncture Draw Fee 14:53:21 CARDIAC SURGEON CPT-62974 Venipuncture Draw Fee 09:40:56 CARDIAC SURGEON CPT-05991 Venipuncture Draw Fee 10:30:47 CARDIAC SURGEON CPT-08312 Venipuncture Draw Fee 10:46:17 CARDIAC SURGEON CPT-46037 Venipuncture Draw Fee 11:12:45 CARDIAC SURGEON CPT-62564 Venipuncture Draw Fee 09:53:33 CARDIAC SURGEON CPT-59384 Venipuncture Draw Fee 11:53:51 CARDIAC SURGEON CPT-02553 Venipuncture Draw Fee 10:33:50 CARDIAC SURGEON CPT-57873 Venipuncture Draw Fee 10:05:01 CARDIAC SURGEON CPT-78879 Venipuncture Draw Fee 14:32:52 CARDIAC SURGEON CPT-57123 Venipuncture Draw Fee 09:46:13 CARDIAC SURGEON CPT-50450 Venipuncture Draw Fee 11:34:27 CARDIAC SURGEON CPT-44351 Venipuncture Draw Fee 13:17:16 CARDIAC SURGEON CPT-79315 Venipuncture Draw Fee 12:05:39 CDT CPT-68639 Venipuncture Draw Fee 12:49:12 CDT CPT-78949 Venipuncture Draw Fee 12:37:18 CDT CPT-11613 Venipuncture Draw Fee 10:57:11 CDT CPT-65155 Venipuncture Draw Fee 13:47:40 CDT CPT-73689 Venipuncture Draw Fee 10:02:17 CDT CPT-93030 TB Tubersol 17:32:32 CDT CPT-OV Office Visit 16:21:53 CDT CPT-OV Office Visit 15:49:22 CDT CPT-OV Office Visit 17:16:31 CDT CPT-OV Office Visit 10:43:31 CDT
--- OUTSIDE RECORDS SUMMARY | 2019-02-09 12:22 | XMS REPORT | Clinical Summary ---
Author Author Admin, Florecita Munoz Organization [facility] Dress Code Address Unknown Phone Unavailable Allergies, Adverse Reactions, [...] Sebaceous cyst, scalp 706.2 Resolved Kylie Yokum WELDING MACHINE FEEDER Sebaceous cyst Cervical lymphadenopathy, anterior, left 785.6 Resolv ed Kylie Yokum WELDING MACHINE FEEDER Enlargement of lymph nodes Need for prophylactic vaccination and inoculation against in fluenza V04.81 Resolved Adam Yates MD Need for prophylactic vaccination and inoculation against influenza Preventive health care V70.0 Active Kylie Yokum WELDING MACHINE FEEDER Routine general medical examination at a health care facility Thyroid nodule, left 241.0 Active Kylie Yokum A PRN Nontoxic uninodular goiter Screening mammogram V76.12 Active Kylie Yogabbium AP RN Other screening mammogram Mandy 706.2 Resolved Kylie Yokum WELDING MACHINE FEEDER Sebaceous cyst Colon cancer, ascending 153.6 Resolved Kylie Yok um WELDING MACHINE FEEDER Malignant neoplasm of ascending colon Foot pain, left 729.5 Active Sulema Naff [employer] PATCHER Pain in limb Splinter 919.6 Active Kylie Yokum WELDING MACHINE FEEDER Superficial foreign body (splinter) of other, multiple, and unspecified sites, without major open wound and without mention of infection Rash 782.1 Active Kylie Yokum WELDING MACHINE FEEDER R aurora and other nonspecific skin eruption ADENOCARCINOMA, COLON, 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 Dick Yates MD ABDOMINAL PAIN, RIGHT LOWER QUADRANT ICD-789.03 Inactive Kina Joshua WELDING MACHINE FEEDER UNSPECIFIED VENOUS INSUFFICIENCY ICD-459.81 Elda ctive Adam Yates MD ABDOMINAL PAIN, GENERALIZED ICD-789.07 Inactive Hope Benavidez MD PhD ADENOCARCINOMA, 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 Inac tizaynab Benavidez MD PhD Hyperkalemia ICD-276.7 Inactive Hope Benavidez MD PhD FEVER UNSPECIFIED ICD-780.60 Inactive Hope chon MD PhD Health maintenance exam ICD-V70.0 Inactive Adolfo Yates MD Anemia ICD-285.9 Inactive Kylie Yokum WELDING MACHINE FEEDER 07/24 GERD ICD-530.81 Inactive Kylie Yopari WELDING MACHINE FEEDER 2015 Hypomagnesemia ICD-275.2 Inactive Kylie Yokum WELDING MACHINE FEEDER Aftercare following surgery of the teeth,oral cavity a nd digestive system, NEC ICD-V58.75 Inactive Adam Yates MD Asymptomatic postmenopausal status (age-related) (natural) I CD-V49.81 Inactive Hope eBnavidez MD PhD Weakness ICD-780.79 Inactive Hope Benavidez MD P hD Diarrhea, functional ICD-564.5 Inactive Selena Yates MD Dysuria ICD-788.1 Inactive Hope Benavidez MD PhD 201 05/19/01 Adenocarcinoma, ascending colon ICD-153.6 Inac abdelrahman Yates MD Sebaceous cyst, scalp ICD-706.2 Inactive Tracy Holt WELDING MACHINE FEEDER Cervical lymphadenopathy, anterior, left ICD-785.6 Inactive Kylie Lundum WELDING MACHINE FEEDER Need for prophylactic vaccination and inoculation against in fluenza ICD-V04.81 Inactive Adam Yates MD Mandy ICD-706.2 Inactive Kylie Lundum WELDING MACHINE FEEDER 07/20 Colon cancer, ascending ICD-153.6 Inactive K jannyi Yanet WELDING MACHINE FEEDER Colon cancer ICD-153.9 Inactive Adam luna MD Medication List Medication Instructions Start Date Stop Date Generic Name NDC Status Provider Patient Instruction VOLTAREN 1 % TRANSDERMAL GEL apply q 6-8 hour to left arm as needed for pain DICLOFENAC SODIUM 88502080493 Active Kylie Lundum WELDING MACHINE FEEDER Active COQ10 100 MG ORAL CAPSULE 1 daily COENZYME Q10 027437 15219 Active LETY Nation Active VITAMIN D3 2000 UNIT ORAL CAPSULE Melaleuca-One daily CHOLECALCIFEROL 19680977390 Active Kylie Lundum WELDING MACHINE FEEDER Active PROBIOTIC DAILY ORAL CAPSULE Take one daily PROBIO TIC PRODUCT 04398482357 Active yKlie Lundum WELDING MACHINE FEEDER Active IRON 325 (65 Fe) MG ORAL TABLET 1 every other day FERROUS SULFATE 32922933447 No Longer Active Kylie Lundum WELDING MACHINE FEEDER Active FLORANEX ORAL PACKET 1 pack three times daily, for bowel health LACTOBACILLUS 21878963285 No Longer Active Kylie Lundum WELDING MACHINE FEEDER Active LOMOTIL 2.5-0.025 MG ORAL TABLET 1 tab by mouth prn 23/10/23 DIPHENOXYLATE-ATROPINE 31218688259 No Longer Active Kylie Yokum WELDING MACHINE FEEDER Active MAGNESIUM GLUCONATE 250 MG ORAL TABLET 1 tab tid 23/10/23 MAGNESIUM GLUCONATE 39264249138 No Longer Active Kylie Polakum WELDING MACHINE FEEDER Active CYANOCOBALAMIN 1000 MCG/ML INJECTION SOLUTION 1 injection ev ruben 2 weeks CYANOCOBALAMIN 62972203481 No Longer Active Kylie Lund um WELDING MACHINE FEEDER Active ATENOLOL 25 MG ORAL TABLET 1/2 pill by mouth daily, fo r headaches, blood pressure ATENOLOL 76775949497 Active Kylie Lundum WELDING MACHINE FEEDER Active PROPRANOLOL HCL 80 MG ORAL TABLET 1 tab tue. and thur. PROPRANOLOL HCL 91494508221 No Longer Active Hope Benavidez MD PhD A ctive VITAMIN D3 4000 IU 1 tab 3 times daily VITAMIN D3 4000 IU No Longer Active Hope Benavidez MD PhD Active BACTRIM DS 800-160 MG ORAL TABLET 1 pill by mouth twice claudio y, for UTI SULFAMETHOXAZOLE-TRIMETHOPRIM 90287708802 No Longer Active Hope Benavidez MD PhD Active PROLIA 60 MG/ML SUBCUTANEOUS SOLUTION 1 shot every 6 months for osteoprosis DENOSUMAB 14860812912 Active Hope Benavidez MD PhD Active CALCIUM + D + K 750-500-40 MG-UNT-MCG ORAL TABLET 1 tab by [facility] twice daily CALCIUM-VITAMIN D-VITAMIN K 38930097657 Active Hope valdez MD PhD Active DAILY VALUE MULTIVITAMIN ORAL TABLET 1 tab by mouth twice daily 201 05/16/14 MULTIPLE VITAMIN 02255834927 Active Hope Benavidez MD PhD Acti ve FISH OIL 306 MG CAPS 1 tab by mouth three times daily OMEGA-3 FATTY ACIDS 46196010941 Active Hope Benavidez MD PhD Active LUTEIN 10 MG ORAL TABLET 1 tab daily LUTEIN 47580200 408 Active Hope Benavidez MD PhD Active TRIAMTERENE-HCTZ 37.5-25 MG ORAL TABLET 1 tab by mouth daily 10/22 TRIAMTERENE-HCTZ 15324677916 Active Kylie Escalonagabbioliver WELDING MACHINE FEEDER Active CYCLOBENZAPRINE HCL 10 MG ORAL TABLET 1 tablet by mout h three times daily as needed for headaches CYCLOBENZAPRINE HCL 40526262717 No Longer Active Adam Yates MD Active OMEPRAZOLE 20 MG ORAL CAPSULE DELAYED RELEASE 1 tablet by mo [facility] daily for GERD OMEPRAZOLE 21043609608 No Longer Active Adam Yates MD Active ZOFRAN 8 MG ORAL TABLET 1 tab by mouth every 12 hours prn 4 ONDANSETRON HCL 06473579630 No Longer Active Adam Yates MD Active PHENADOZ 25 MG RECTAL SUPPOSITORY 1 every 4 hrs. PRN 2 PROMETHAZINE HCL 74041550861 No Longer Active Adam Yates MD A ctive POTASSIUM CHLORIDE 20 MEQ ORAL PACKET by mouth twice a day prn 2 POTASSIUM CHLORIDE 02866749422 No Longer Active Adam Carpenter MD Active PROMETHAZINE HCL 25 MG ORAL TABLET 1 Q. 4 hr. PRN PROMETHAZINE HCL 02460050549 No Longer Active Adam Yates MD Active INNOPRAN XL 120 MG ORAL CAPSULE EXTENDED RELEASE 24 HO UR Take one by mouth daily PROPRANOLOL HCL SR BEADS 33690495333 No Longer Active Adam Yates MD Active FLAGYL 500 MG ORAL TABLET 1 pill by mouth three times daily, for diarrhea METRONIDAZOLE 90002804369 No Longer Active Hope landers MD PhD Active DYAZIDE 37.5-25 MG ORAL CAPSULE 1 qd TRIA MTERENE-HCTZ 97115899783 No Longer Active Hope Benavidez MD PhD Active PROZAC 20 MG ORAL CAPSULE 1 q d FLUOXETINE HCL 69779962517 No Longer Active Hope Benavidez MD PhD Active SIMVASTATIN 40 MG ORAL TABLET 1 qd SIMVAS TATIN 17479800657 No Longer Active Adam Yates MD Active MELOXICAM 15 MG ORAL TABLET 1 qd MELOXICAM 34917279761 No Longer Active Adam Yates MD Active IMODIUM A-D 2 MG ORAL TABLET 2 onset at diarrhea and prn. LOPERAMIDE HCL 76957680318 Active Hope Benavidez MD PhD Active EXCEDRIN EXTRA STRENGTH 250-250-65 MG ORAL TABLET 1-2 q6h WV N headache [id number] 41982918107 Active Hope Benavidez MD PhD Active FLAGYL 500 MG ORAL TABLET 1 qid METRONIDAZOL E 11912439871 No Longer Active Adam Yates MD Active LEVAQUIN 750 MG ORAL TABLET 1 qd LEVOFLOXAC IN 42281957705 No Longer Active Adam Yates MD Active ADULT ASPIRIN LOW STRENGTH 81 MG ORAL TABLET DISINTEGRATING 1 qd ASPIRIN 42205639104 Active Hope Benavidez MD PhD Active LEVAQUIN 750 MG ORAL TABLET 1 qd LEVAQUIN 750 MG ORAL TABLET 056709 LEVOFLOXACIN Inactive FLAGYL 500 MG ORAL TABLET 1 qid FLAGYL 500 MG ORAL TABLET 676586 METRONIDAZOLE Inactive MELOXICAM 15 MG ORAL TABLET 1 qd MELOXICAM 15 MG ORAL TABLET 546911 MELOXICAM Inactive SIMVASTATIN 40 MG ORAL TABLET 1 qd SIMVASTATIN 40 MG ORAL TABLET 231468 SIMVASTATIN Inactive PROZAC 20 MG ORAL CAPSULE 1 q d PROZAC 20 MG ORAL CAPSULE 462308 FLUOXETINE HCL Inactive DYAZIDE 37.5-25 MG ORAL CAPSULE 1 qd 5 DYAZIDE 37.5-25 MG ORAL CAPSULE 263654 TRIAMTERENE-HCTZ Inactive INNOPRAN XL 120 MG ORAL CAPSULE EXTENDED RELEASE 24 HO UR Take one by mouth daily INNOPRAN XL 120 MG ORAL CAPSULE EXTENDED RELEASE 24 HOUR PROPRANOLOL HCL SR BEADS Inactive PROMETHAZINE HCL 25 MG ORAL TABLET 1 Q. 4 hr. PRN 2013 PROMETHAZINE HCL 25 MG ORAL TABLET 855925 PROMETHAZINE HCL Inactive POTASSIUM CHLORIDE 20 MEQ ORAL PACKET by mouth twice a day prn 2 POTASSIUM CHLORIDE 20 MEQ ORAL PACKET 2708670 POTASSIUM CHLORIDE Inactive PHENADOZ 25 MG RECTAL SUPPOSITORY 1 every 4 hrs. PRN 2 PHENADOZ 25 MG RECTAL SUPPOSITORY 070714 PROMETHAZINE HCL Inactive ZOFRAN 8 MG ORAL TABLET 1 tab by mouth every 12 hours prn 4 ZOFRAN 8 MG ORAL TABLET 768976 ONDANSETRON HCL Inactive OMEPRAZOLE 20 MG ORAL CAPSULE DELAYED RELEASE 1 tablet by mo uth daily for GERD OMEPRAZOLE 20 MG ORAL CAPSULE DELAYED RELEASE 19 8051 OMEPRAZOLE Inactive CYCLOBENZAPRINE HCL 10 MG ORAL TABLET 1 tablet by mout h three times daily as needed for headaches CYCLOBENZAPRINE HCL 10 MG ORAL TABLET 987770 CYCLOBENZAPRINE HCL Inactive VITAMIN D3 4000 IU 1 tab 3 times daily VITAMIN D3 4000 IU Inactive PROPRANOLOL HCL 80 MG ORAL TABLET 1 tab tue. and thur. PROPRANOLOL HCL 80 MG ORAL TABLET 568940 PROPRANOLOL HCL Inacti ve CYANOCOBALAMIN 1000 MCG/ML INJECTION SOLUTION 1 injection ev ruben 2 weeks CYANOCOBALAMIN 1000 MCG/ML INJECTION SOLUTION 30 9594 CYANOCOBALAMIN Inactive MAGNESIUM GLUCONATE 250 MG ORAL TABLET 1 tab tid 20 23/10/23 MAGNESIUM GLUCONATE 250 MG ORAL TABLET 946894 MAGNESIUM GLUCONATE Inactive LOMOTIL 2.5-0.025 MG ORAL TABLET 1 tab by mouth prn 20 23/10/23 LOMOTIL 2.5-0.025 MG ORAL TABLET 7665403 DIPHENOXYLATE-ATROPINE Inac tive FLORANEX ORAL PACKET 1 pack three times daily, for bowel health FLORANEX ORAL PACKET LACTOBACILLUS Inactive IRON 325 (65 Fe) MG ORAL TABLET 1 every other day 2015 IRON 325 (65 Fe) MG ORAL TABLET 980432 FERROUS SULFATE Inactive FLAGYL 500 MG ORAL TABLET 1 pill by mouth three times daily, for diarrhea FLAGYL 500 MG ORAL TABLET 501171 METRONIDAZOLE I nactive BACTRIM DS 800-160 MG ORAL TABLET 1 pill by mouth twice claudio y, for UTI BACTRIM DS 800-160 MG ORAL TABLET 084760 SULFAMETHOXAZOLE-TRIMETHOPRIM Inactive Advance Directives Directive Description Start [...] Lab Report: CBC (INCLUDES DIFF/PLT)/6399 - Hematology mean corpuscular hemoglobin, RBC 31.8 pg 27. 0-33.0 mean corpuscular hemoglobin concentration, RBC 33.7 G/DL % 32.0-36.0 red blood cell distribution width 13.5 % 11 .0-15.0 platelet count 157 THOUSAND/UL 10*3/mm3 802-644 8760/04/20 mean platelet volume 8.9 fL 7.5-12.5 mean corpuscular volume, RBC 94.4 fL 80.0-10 0.0 hematocrit, blood 44.2 % 35.0-45.0 hemoglobin, blood 14.9 g/dL 11.7-15.5 erythrocyte (RBC) count 4.68 MILLION/UL 10*6/mm3 3.80-5. 10 leukocyte count, blood 6.3 THOUSAND/UL 10*3/mm3 3.8-10.8 Lab Report: CEA - Serology carcinoembryonic antigen 0.9 ng/mL Encounters Code Encounter Date Provider Facility CPT-12253 Level 2 Est. Patient 14:27:16 DAIRY EQUIPMENT INSTALLER Kylie Lund [facility] CPT-46897 Level 3 Est. Patient 17:54:48 CDT Kylie Lund [facility] CPT-21125 Level 3 Est. Patient 16:26:30 CDT Kina blackmon [facility] CPT-88611 Level 3 New Patient 16:22:01 DAIRY EQUIPMENT INSTALLER Adam Yates MD [facility] CPT-26314 Level 4 Est. Patient 17:00:48 CDT Kylie Lund [facility] CPT-46123 Level 3 Est. Patient 13:15:54 CDT Kylie Lund [facility] CPT-42665 Level 3 Est. Patient 09:10:11 CDT Kylie Lund [facility] CPT-23287 Level 4 Est. Patient 12:08:30 DAIRY EQUIPMENT INSTALLER Hope cohn MD PhD [facility] CPT-79129 Level 4 Est. Patient 19:08:42 DAIRY EQUIPMENT INSTALLER Hope cohn MD PhD [facility] CPT-27678 Level 4 Est. Patient 20:04:51 CDT Hope cohn MD PhD [facility] CPT-31715 Level 3 New Patient 01:46:11 DAIRY EQUIPMENT INSTALLER Hope landers MD PhD [facility] Procedures Code Procedure Name Date Entry Date Standard Desc ription CPT-37657 First Vx - Ix admin for Medicare patients 11:19:30 CDT CPT-43896 Fluzone High-Dose Intramuscular Suspension 12/07 11:19:30 CDT CPT-J0897 Prolia 60 mg 14:55:42 CDT CPT-93050 Abx/Therapy Injection 14:55:42 CDT CPT-57470 Bone Density - XRAY USE ONLY 10:27:12 CDT 2 CPT-G0439 [facility] Annual Wellness Exam 17:54:53 CDT CPT-43428 Foot, left, comp min 3V - XRAY USE ONLY 12:22:49 CDT CPT-G0009 Administration of Pneumococcal Vaccine 3 12:18:00 CDT CPT-67170 Pneumovax 23 Injection Injectable 25 MCG /0.5ML 12:18:00 CDT CPT-J0897 Prolia 60 mg 14:14:16 DAIRY EQUIPMENT INSTALLER CPT-51156 Abx/Therapy Injection 14:14:15 DAIRY EQUIPMENT INSTALLER CPT-96533 Lipid - LAB USE ONLY 10:01:52 DAIRY EQUIPMENT INSTALLER 2 CPT-91410 Calcium - LAB USE ONLY 10:01:51 DAIRY EQUIPMENT INSTALLER CPT-39662 Venipuncture Draw Fee 10:01:51 DAIRY EQUIPMENT INSTALLER CPT-LR Lesion Removal 16:22:01 DAIRY EQUIPMENT INSTALLER CPT-46878 TSH - LAB USE ONLY 14:26:02 CDT CPT-23393 CMP - LAB USE ONLY 14:26:01 CDT CPT-14166 CBC with Diff - LAB USE ONLY 14:26:01 CDT 2 CPT-10559 Venipuncture Draw Fee 14:26:01 CDT CPT-14593 First Vx - Ix admin for Medicare patients 13:27:08 CDT CPT-15211 Fluzone High-Dose Intramuscular Suspension 11/26 13:27:08 CDT CPT-G0438 Initial Annual Wellness Exam 14:19:57 CD T CPT-G0009 Administration of Pneumococcal Vaccine 9 11:36:25 CDT CPT-88306 Prevnar 13 Intramuscular Suspension 1 1:36:25 CDT CPT-55013 Prevnar 13 Intramuscular Suspension 1 0:40:58 CDT CPT-J0897 Prolia 60 mg 10:37:16 CDT CPT-39443 Abx/Therapy Injection 10:37:16 CDT CPT-J0897 Prolia 60 mg 16:09:34 DAIRY EQUIPMENT INSTALLER CPT-J0897 Prolia 60 mg 11:10:35 DAIRY EQUIPMENT INSTALLER CPT-21194 Abx/Therapy Injection 11:10:35 DAIRY EQUIPMENT INSTALLER CPT-000 Give Appropriate Flu Vaccine 17:01:15 DAIRY EQUIPMENT INSTALLER 2 CPT-28651 Fluzone High Dose (65+) 15:03:08 DAIRY EQUIPMENT INSTALLER 02/15 CPT-11308 Immunization Single Admin 15:03:08 DAIRY EQUIPMENT INSTALLER 2014 CPT-OV Office Visit 15:58:06 CDT CPT-J0897 Prolia 60 mg 08:45:38 CDT CPT-73391 Abx/Therapy Injection 08:45:38 CDT CPT-J3420 Vitamin B12 1000mcg (Cyanocobalamin) 09:26:20 DAIRY EQUIPMENT INSTALLER CPT-57834 Abx/Therapy Injection 09:26:20 DAIRY EQUIPMENT INSTALLER CPT-J3420 Vitamin B12 1000mcg (Cyanocobalamin) 09:44:40 DAIRY EQUIPMENT INSTALLER CPT-37918 Abx/Therapy Injection 09:44:40 DAIRY EQUIPMENT INSTALLER CPT-J3420 Vitamin B12 1000mcg (Cyanocobalamin) 09:15:54 DAIRY EQUIPMENT INSTALLER CPT-89879 Abx/Therapy Injection 09:15:54 DAIRY EQUIPMENT INSTALLER CPT-J3420 Vitamin B12 1000mcg (Cyanocobalamin) 09:46:44 DAIRY EQUIPMENT INSTALLER CPT-86915 Abx/Therapy Injection 09:46:44 DAIRY EQUIPMENT INSTALLER CPT-J3420 Vitamin B12 1000mcg (Cyanocobalamin) 09:47:34 DAIRY EQUIPMENT INSTALLER CPT-77430 Abx/Therapy Injection 09:47:34 DAIRY EQUIPMENT INSTALLER CPT-J3420 Vitamin B12 1000mcg (Cyanocobalamin) 14:35:50 DAIRY EQUIPMENT INSTALLER CPT-J3420 Vitamin B12 1000mcg (Cyanocobalamin) 09:25:05 DAIRY EQUIPMENT INSTALLER CPT-21792 Abx/Therapy Injection 09:25:05 DAIRY EQUIPMENT INSTALLER CPT-G0008 Administration of Influenza Virus Vaccine 13:36:47 CDT CPT-61364 Fluzone High-Dose Intramuscular Suspension 11/15 13:36:47 CDT CPT-J0897 Prolia 60 mg 08:50:41 CDT CPT-92081 Abx/Therapy Injection 08:50:41 CDT CPT-94518 Bone Density 12:06:12 CDT CPT-94533 Bone Density 08:54:40 CDT CPT-OV Office Visit 15:37:02 CDT CPT-13811 Postop F/U Visit 15:47:49 CDT CPT-79260 Postop F/U Visit 15:21:02 CDT CPT-[facility] Transitional Care Mgmt-High 07:52:27 CDT 20 20/06/01 CPT-82294 Venipuncture Draw Fee 13:51:18 CDT CPT-83529 Venipuncture Draw Fee 10:14:55 DAIRY EQUIPMENT INSTALLER CPT-55041 Venipuncture Draw Fee 13:39:45 DAIRY EQUIPMENT INSTALLER CPT-OV Office Visit 15:11:22 DAIRY EQUIPMENT INSTALLER CPT-78690 Venipuncture Draw Fee 09:20:49 DAIRY EQUIPMENT INSTALLER CPT-60796 Venipuncture Draw Fee 16:52:15 DAIRY EQUIPMENT INSTALLER CPT-93718 Venipuncture Draw Fee 10:37:24 DAIRY EQUIPMENT INSTALLER CPT-60548 Venipuncture Draw Fee 08:21:21 DAIRY EQUIPMENT INSTALLER CPT-97099 Venipuncture Draw Fee 08:30:20 DAIRY EQUIPMENT INSTALLER CPT-24272 Venipuncture Draw Fee 14:53:21 DAIRY EQUIPMENT INSTALLER CPT-12304 Venipuncture Draw Fee 09:40:56 DAIRY EQUIPMENT INSTALLER CPT-47667 Venipuncture Draw Fee 10:30:47 DAIRY EQUIPMENT INSTALLER CPT-57623 Venipuncture Draw Fee 10:46:17 DAIRY EQUIPMENT INSTALLER CPT-99426 Venipuncture Draw Fee 11:12:45 DAIRY EQUIPMENT INSTALLER CPT-31780 Venipuncture Draw Fee 09:53:33 DAIRY EQUIPMENT INSTALLER CPT-89526 Venipuncture Draw Fee 11:53:51 DAIRY EQUIPMENT INSTALLER CPT-52866 Venipuncture Draw Fee 10:33:50 DAIRY EQUIPMENT INSTALLER CPT-15573 Venipuncture Draw Fee 10:05:01 DAIRY EQUIPMENT INSTALLER CPT-58827 Venipuncture Draw Fee 14:32:52 DAIRY EQUIPMENT INSTALLER CPT-68517 Venipuncture Draw Fee 09:46:13 DAIRY EQUIPMENT INSTALLER CPT-26099 Venipuncture Draw Fee 11:34:27 DAIRY EQUIPMENT INSTALLER CPT-49554 Venipuncture Draw Fee 13:17:16 DAIRY EQUIPMENT INSTALLER CPT-92063 Venipuncture Draw Fee 12:05:39 CDT CPT-79804 Venipuncture Draw Fee 12:49:12 CDT CPT-33840 Venipuncture Draw Fee 12:37:18 CDT CPT-30027 Venipuncture Draw Fee 10:57:11 CDT CPT-32465 Venipuncture Draw Fee 13:47:40 CDT CPT-01808 Venipuncture Draw Fee 10:02:17 CDT CPT-15807 TB Tubersol 17:32:32 CDT CPT-OV Office Visit 16:21:53 CDT CPT-OV Office Visit 15:49:22 CDT CPT-OV Office Visit 17:16:31 CDT CPT-OV Office Visit 10:43:31 CDT
--- OUTSIDE RECORDS SUMMARY | 2019-02-09 12:23 | XMS REPORT | Clinical Summary ---
Author Author Renaldo, Florecita Munoz Organization [facility] [employer] Address Unknown Phone Unavailable Allergies, Adverse Reactions, [...] PhD Hyperpotassemia GERD 530.81 Resolved Kylie Yokum [employer] Esophageal reflux Health maintenance exam V70.0 Resolved Adolfo Yates MD Routine general medical examination at a health care facility Anemia 285.9 Resolved Kylie Holt [employer] Anemia, unspecified Personal history of malignant neoplasm [...] colon Sebaceous cyst, scalp 706.2 Resolved Kylie Yopari [employer] Sebaceous cyst Cervical lymphadenopathy, anterior, left 785.6 Resolv ed Kylie Yopari [employer] Enlargement of lymph nodes Need for prophylactic vaccination and inoculation against in fluenza V04.81 Active Citlaly Watkins RMA Need for prophylactic vaccination and inoculation against influenza Preventive health care V70.0 Active Kylie Holt [employer] Routine general medical examination at a health care facility Thyroid nodule, left 241.0 Active Kylie Polagabbium A PRN Nontoxic uninodular goiter ABDOMINAL PAIN, RIGHT LOWER QUADRANT ICD-789.03 Inactive Kina Joshua [employer] ADENOCARCINOMA, COLON, 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 Dick Yates MD ABDOMINAL PAIN, GENERALIZED ICD-789.07 Inactive Hope Benavidez MD PhD FEVER UNSPECIFIED ICD-780.60 Inactive Hope cohn MD PhD UNSPECIFIED VENOUS INSUFFICIENCY ICD-459.81 [place] ctive Adam Yates MD ADENOCARCINOMA, 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 Inac tive Hope Benavidez MD PhD Hyperkalemia ICD-276.7 Inactive Hope Benavidez MD PhD GERD ICD-530.81 Inactive Kylie Holt [employer] 2015 Health maintenance exam ICD-V70.0 Bam Yates MD Anemia ICD-285.9 Inactive Kylie Yokum [employer] 07/24 Weakness ICD-780.79 Inactive Hope Benavidez MD P hD Aftercare following surgery of the teeth,oral cavity a nd digestive system, NEC ICD-V58.75 Inactive Adam Yates MD Colon cancer ICD-153.9 Inactive Adam luna MD Asymptomatic postmenopausal status (age-related) (natural) I CD-V49.81 Inactive Hope Benavidez MD PhD Dysuria ICD-788.1 Inactive Hope Benavidez MD PhD 201 05/19/01 Sebaceous cyst, scalp ICD-706.2 Inactive Tracy Lundum [employer] Cervical lymphadenopathy, anterior, left ICD-785.6 Inactive Kylie Lundum [employer] Medication List Medication Instructions Start Date Stop Date Generic Name NDC Status Provider Patient Instruction VITAMIN D3 2000 UNIT ORAL CAPS Melaleuca-One daily CHOLECALCIFEROL 86164370094 Active Kylie Yokum [employer] Active PROBIOTIC DAILY ORAL CAPS Take one daily PROBIOTIC PRODUCT 24582415390 Active Kylie Yokum [employer] Active IRON 325 (65 FE) MG TABS 1 every other day FERR OUS SULFATE 88280952646 No Longer Active Kylie Yokum [employer] Active FLORANEX PACK 1 pack three times daily, for bowel health LACTOBACILLUS 03434006411 No Longer Active Kylie Yokum [employer] Active LOMOTIL 2.5-0.025 MG TABS 1 tab by mouth prn 4 DIPHENOXYLATE-ATROPINE 12003131869 No Longer Active Kylie Yokum [employer] Active MAGNESIUM GLUCONATE 250 MG TABS 1 tab tid 4 MAGNESIUM GLUCONATE 93825687232 No Longer Active Kylie Yokum [employer] Active CYANOCOBALAMIN 1000 MCG/ML INJ SOLN 1 injection every 2 weeks 20 20/01/03 CYANOCOBALAMIN 87416733488 No Longer Active Kylieshubham Lundum [employer] Active ATENOLOL 25 MG ORAL TABS 1/2 pill by mouth daily, for headac hes, blood pressure ATENOLOL 71056649831 Active Kylie Yokum [employer] Active PROPRANOLOL HCL 80 MG TABS 1 tab tue. and thur. 04/10 PROPRANOLOL HCL 21285945741 No Longer Active Hope Benavidez MD PhD A ctive VITAMIN D3 4000 IU 1 tab 3 times daily VITAMIN D3 4000 IU No Longer Active Hope Benavidez MD PhD Active BACTRIM DS 800-160 MG TABS 1 pill by mouth twice daily, for UTI SULFAMETHOXAZOLE-TRIMETHOPRIM 82352531992 No Longer Active A attila Benavidez MD PhD Active PROLIA 60 MG/ML SOLN 1 shot every 6 months for osteoprosis DENOSUMAB 51867877953 Active Hope Benavidez MD PhD Active CALCIUM + D + K 750-500-40 MG-UNT-MCG TABS 1 tab by mouth tw ice daily CALCIUM-VITAMIN D-VITAMIN K 22741003005 Active Hope landers MD PhD Active DAILY VALUE MULTIVITAMIN TABS 1 tab by mouth twice daily MULTIPLE VITAMIN 83399405596 Active Hope Benavidez MD PhD Active FISH OIL 306 MG CAPS 1 tab by mouth three times daily OMEGA-3 FATTY ACIDS 91666765942 Active Hope Benavidez MD PhD Active LUTEIN 10 MG TABS 1 tab daily LUTEIN 99057908707 Act cash Hope Benavidez MD PhD Active TRIAMTERENE-HCTZ 37.5-25 MG TABS 1 tab by mouth daily TRIAMTERENE-HCTZ 28327587807 Active Kylie Lundum [employer] Active CYCLOBENZAPRINE HCL 10 MG TABS 1 tablet by mouth three times daily as needed for headaches CYCLOBENZAPRINE HCL 36292536860 No Longe r Active Adam Yates MD Active OMEPRAZOLE 20 MG CPDR 1 tablet by mouth daily for GERD OMEPRAZOLE 38800767489 No Longer Active Adam Yates MD A ctive ZOFRAN 8 MG TABS 1 tab by mouth every 12 hours prn 201 05/16/09 ONDANSETRON HCL 22343655744 No Longer Active Adam Yates MD Active PHENADOZ 25 MG SUPP 1 every 4 hrs. PRN PROMETHA ZINE HCL 52485433633 No Longer Active Adam Yates MD Active POTASSIUM CHLORIDE 20 MEQ PACK by mouth twice a day prn POTASSIUM CHLORIDE 73182815914 No Longer Active Adam Yates MD Active PROMETHAZINE HCL 25 MG TABS 1 Q. 4 hr. PRN PROM ETHAZINE HCL 84882224465 No Longer Active Adam Yates MD Active INNOPRAN XL 120 MG [id number] Take one by mouth daily 2 PROPRANOLOL HCL SR BEADS 38295347469 No Longer Active Adam Yates MD A ctive FLAGYL 500 MG TABS 1 pill by mouth three times daily, for diarrh ea METRONIDAZOLE 45707772932 No Longer Active Hope Benavidez MD PhD Active DYAZIDE 37.5-25 MG CAPS 1 qd TRIAMTERENE-HC TZ 21649374337 No Longer Active Hope Benavidez MD PhD Active PROZAC 20 MG CAPS 1 q d FLUOXETINE HCL 33055 820731 No Longer Active Hope Benavidez MD PhD Active SIMVASTATIN 40 MG TABS 1 qd SIMVASTATIN 004 46104715 No Longer Active Adam Yates MD Active MELOXICAM 15 MG TABS 1 qd MELOXICAM 5261733 4102 No Longer Active Adam Yates MD Active IMODIUM A-D 2 MG TABS 2 onset at diarrhea and prn. LOPERAMIDE HCL 55971154288 Active Hope Benavidez MD PhD Active EXCEDRIN EXTRA STRENGTH 250-250-65 MG TABS 1-2 q6h PRN headache 201 04/16/21 [id number] 13200558709 Active Hope Benavidez MD PhD Active FLAGYL 500 MG TABS 1 qid METRONIDAZOLE 60375 084959 No Longer Active Adam Yates MD Active LEVAQUIN 750 MG TABS 1 qd LEVOFLOXACIN 5486 5086425 No Longer Active Adam Yates MD Active ADULT ASPIRIN LOW STRENGTH 81 MG TBDP 1 qd A SPIRIN 68208879333 Active Hope Benavidez MD PhD Active LEVAQUIN 750 MG TABS 1 qd LEVAQUIN 750 MG T ABS 423706 LEVOFLOXACIN Inactive FLAGYL 500 MG TABS 1 qid FLAGYL 500 MG TABS 437205 METRONIDAZOLE Inactive MELOXICAM 15 MG TABS 1 qd MELOXICAM 15 MG T ABS 112491 MELOXICAM Inactive SIMVASTATIN 40 MG TABS 1 qd SIMVASTATIN 40 MG TABS 603350 SIMVASTATIN Inactive PROZAC 20 MG CAPS 1 q d PROZAC 20 MG CAPS 31 0385 FLUOXETINE HCL Inactive DYAZIDE 37.5-25 MG CAPS 1 qd DYAZIDE 37.5 -25 MG CAPS 806920 TRIAMTERENE-HCTZ Inactive INNOPRAN XL 120 MG [id number] Take one by mouth daily 2 INNOPRAN XL 120 MG [id number] PROPRANOLOL HCL SR BEADS Inactive PROMETHAZINE HCL 25 MG TABS 1 Q. 4 hr. PRN PROMETHAZINE HCL 25 MG TABS 065314 PROMETHAZINE HCL Inactive POTASSIUM CHLORIDE 20 MEQ PACK by mouth twice a day prn POTASSIUM CHLORIDE 20 MEQ PACK 517660 POTASSIUM CHLORIDE Inactive PHENADOZ 25 MG SUPP 1 every 4 hrs. PRN PHENADOZ 2 5 MG SUPP 961627 PROMETHAZINE HCL Inactive ZOFRAN 8 MG TABS 1 tab by mouth every 12 hours prn 201 05/16/09 ZOFRAN 8 MG TABS 403700 ONDANSETRON HCL Inactive OMEPRAZOLE 20 MG CPDR 1 tablet by mouth daily for GERD OMEPRAZOLE 20 MG CPDR 877718 OMEPRAZOLE Inactive CYCLOBENZAPRINE HCL 10 MG TABS 1 tablet by mouth three times daily as needed for headaches CYCLOBENZAPRINE HCL 10 MG TABS 617318 CYCLOBENZAPRINE HCL Inactive VITAMIN D3 4000 IU 1 tab 3 times daily VITAMIN D3 4000 IU Inactive PROPRANOLOL HCL 80 MG TABS 1 tab tue. and thur. 04/10 PROPRANOLOL HCL 80 MG TABS 788681 PROPRANOLOL HCL Inactive CYANOCOBALAMIN 1000 MCG/ML INJ SOLN 1 injection every 2 weeks 20 20/01/03 CYANOCOBALAMIN 1000 MCG/ML INJ SOLN 918263 CYANOCOBALAM IN Inactive MAGNESIUM GLUCONATE 250 MG TABS 1 tab tid 4 MAGNESIUM GLUCONATE 250 MG TABS 904970 MAGNESIUM GLUCONATE Inactive LOMOTIL 2.5-0.025 MG TABS 1 tab by mouth prn 4 LOMOTIL 2.5- 0.025 MG TABS 5902131 DIPHENOXYLATE-ATROPINE Inactive FLORANEX PACK 1 pack three times daily, for bowel health FLORANEX PACK LACTOBACILLUS Inactive IRON 325 (65 FE) MG TABS 1 every other day IRON 325 (65 FE) MG TABS 329310 FERROUS SULFATE Inactive FLAGYL 500 MG TABS 1 pill by mouth three times daily, for diarrh ea FLAGYL 500 MG TABS 587731 METRONIDAZOLE Inactive BACTRIM DS 800-160 MG TABS 1 pill by mouth twice daily, for UTI BACTRIM DS 800-160 MG TABS 231384 SULFAMETHOXAZOLE-TRIM ETHOPRIM Inactive Advance Directives Directive Description [...] Range Description blood pressure, diastolic - 8462-4 59 mm[Hg] [...] Panel - Chemistry sodium, serum 142 mmol/L 259-353 2547/04/20 carbon dioxide, venous blood 34.7 mmol/L 21.0-32 .0 potassium, serum 3.5 mmol/L 3.5-5.2 chloride, serum 102 mmol/L 98-107 blood glucose 102 mg/dL 65-110 urea nitrogen, blood 24 mg/dL 7-18 creatinine, serum 1.37 mg/dL 0.55-1.30 alanine aminotransferase (SGPT), serum 72 U/L 12-78 aspartate aminotransferase (SGOT), serum 44 U/L 15-37 calcium, serum 9.0 mg/dL 8.5-10.1 bilirubin, serum, total 0.50 mg/dL 0.00-1.00 sodium, serum 138 mmol/L 875-009 9461/10/23 carbon dioxide, venous blood 29.5 mmol/L 21.0-32 [...] 11 .6-14.8 platelet count 189 10^3/MM^3 10*3/mm3 229-559 3874/04/20 leukocyte count, blood 5.9 10^3/MM^3 10*3/mm3 4.6-10.2 [...] 1.24 m[iU]/mL 0.36-3.74 cholesterol, serum 227 mg/dL 747-759 8245/10/23 triglyceride, serum, fasting 144 mg/dL 30-200 HDL cholesterol, serum 60 mg/dL 32-96 LDL cholesterol, serum 138 mg/dL 0-130 Lab Report: Lipid Panel, MICROALBUMIN, T hyroid Stimulating Hormone (L) - Lab microalbumin, urine 10 0-19 Encounters Code Encounter Date Provider Facility CPT-90414 Level 4 Est. [facility] CPT-87279 Level 3 Est. Patient 13:15:[facility] CPT-75866 Level 3 Est. Patient 09:10:11 CDT [facility] CPT-73864 Level 4 Est. Patient 12:08:30 TAIL DOGGER Hope cohn MD PhD [facility] CPT-04715 Level 4 Est. Patient 19:08:42 TAIL DOGGER Hope cohn MD PhD [facility] CPT-22638 Level 4 Est. Patient 20:04:51 CDT Hope cohn MD PhD [facility] CPT-87021 Level 3 New Patient 01:46:11 TAIL DOGGER Hope landers MD PhD [facility] Procedures Code Procedure Name Date Entry Date Standard Desc ription CPT-G0438 Initial Annual Wellness Exam 14:19:57 CD T CPT-G0009 Administration of Pneumococcal Vaccine 9 11:36:25 CDT CPT-98204 Prevnar 13 Intramuscular Suspension 1 1:36:25 CDT CPT-84267 Prevnar 13 Intramuscular Suspension 1 0:40:58 CDT CPT-J0897 Prolia 60 mg 10:37:16 CDT CPT-89786 Abx/Therapy Injection 10:37:16 CDT CPT-J0897 Prolia 60 mg 16:09:34 TAIL DOGGER CPT-J0897 Prolia 60 mg 11:10:35 TAIL DOGGER CPT-45600 Abx/Therapy Injection 11:10:35 TAIL DOGGER CPT-000 Give Appropriate Flu Vaccine 17:01:15 TAIL DOGGER 2 CPT-43497 Fluzone High Dose (65+) 15:03:08 TAIL DOGGER 02/15 CPT-90207 Immunization Single Admin 15:03:08 TAIL DOGGER 2014 CPT-OV Office Visit 15:58:06 CDT CPT-J0897 Prolia 60 mg 08:45:38 CDT CPT-98079 Abx/Therapy Injection 08:45:38 CDT CPT-J3420 Vitamin B12 1000mcg (Cyanocobalamin) 09:26:20 TAIL DOGGER CPT-39156 Abx/Therapy Injection 09:26:20 TAIL DOGGER CPT-J3420 Vitamin B12 1000mcg (Cyanocobalamin) 09:44:40 TAIL DOGGER CPT-23294 Abx/Therapy Injection 09:44:40 TAIL DOGGER CPT-J3420 Vitamin B12 1000mcg (Cyanocobalamin) 09:15:54 TAIL DOGGER CPT-07179 Abx/Therapy Injection 09:15:54 TAIL DOGGER CPT-J3420 Vitamin B12 1000mcg (Cyanocobalamin) 09:46:44 TAIL DOGGER CPT-46074 Abx/Therapy Injection 09:46:44 TAIL DOGGER CPT-J3420 Vitamin B12 1000mcg (Cyanocobalamin) 09:47:34 TAIL DOGGER CPT-42775 Abx/Therapy Injection 09:47:34 TAIL DOGGER CPT-J3420 Vitamin B12 1000mcg (Cyanocobalamin) 14:35:50 TAIL DOGGER CPT-J3420 Vitamin B12 1000mcg (Cyanocobalamin) 09:25:05 TAIL DOGGER CPT-31318 Abx/Therapy Injection 09:25:05 TAIL DOGGER CPT-G0008 Administration of Influenza Virus Vaccine 13:36:47 CDT CPT-63279 Fluzone High-Dose Intramuscular Suspension 11/15 13:36:47 CDT CPT-J0897 Prolia 60 mg 08:50:41 CDT CPT-37950 Abx/Therapy Injection 08:50:41 CDT CPT-71201 Bone Density 12:06:12 CDT CPT-24107 Bone Density 08:54:40 CDT CPT-OV Office Visit 15:37:02 CDT CPT-40251 Postop F/U Visit 15:47:49 CDT CPT-83392 Postop F/U Visit 15:21:02 CDT CPT-[facility]CM[facility] Transitional Care Mgmt-High 07:52:27 CDT 20 20/06/01 CPT-31242 Venipuncture Draw Fee 13:51:18 CDT CPT-90431 Venipuncture Draw Fee 10:14:55 TAIL DOGGER CPT-79669 Venipuncture Draw Fee 13:39:45 TAIL DOGGER CPT-OV Office Visit 15:11:22 TAIL DOGGER CPT-01892 Venipuncture Draw Fee 09:20:49 TAIL DOGGER CPT-70370 Venipuncture Draw Fee 16:52:15 TAIL DOGGER CPT-79801 Venipuncture Draw Fee 10:37:24 TAIL DOGGER CPT-50673 Venipuncture Draw Fee 08:21:21 TAIL DOGGER CPT-29355 Venipuncture Draw Fee 08:30:20 TAIL DOGGER CPT-81075 Venipuncture Draw Fee 14:53:21 TAIL DOGGER CPT-59817 Venipuncture Draw Fee 09:40:56 TAIL DOGGER CPT-64977 Venipuncture Draw Fee 10:30:47 TAIL DOGGER CPT-69595 Venipuncture Draw Fee 10:46:17 TAIL DOGGER CPT-55033 Venipuncture Draw Fee 11:12:45 TAIL DOGGER CPT-39922 Venipuncture Draw Fee 09:53:33 TAIL DOGGER CPT-84464 Venipuncture Draw Fee 11:53:51 TAIL DOGGER CPT-82592 Venipuncture Draw Fee 10:33:50 TAIL DOGGER CPT-46443 Venipuncture Draw Fee 10:05:01 TAIL DOGGER CPT-57644 Venipuncture Draw Fee 14:32:52 TAIL DOGGER CPT-54679 Venipuncture Draw Fee 09:46:13 TAIL DOGGER CPT-92672 Venipuncture Draw Fee 11:34:27 TAIL DOGGER CPT-90230 Venipuncture Draw Fee 13:17:16 TAIL DOGGER CPT-36202 Venipuncture Draw Fee 12:05:39 CDT CPT-12650 Venipuncture Draw Fee 12:49:12 CDT CPT-95239 Venipuncture Draw Fee 12:37:18 CDT CPT-17701 Venipuncture Draw Fee 10:57:11 CDT CPT-92729 Venipuncture Draw Fee 13:47:40 CDT CPT-68335 Venipuncture Draw Fee 10:02:17 CDT CPT-87088 TB Tubersol 17:32:32 CDT CPT-OV Office Visit 16:21:53 CDT CPT-OV Office Visit 15:49:22 CDT CPT-OV Office Visit 17:16:31 CDT CPT-OV Office Visit 10:43:31 CDT
--- OUTSIDE RECORDS SUMMARY | 2019-02-09 12:23 | XMS REPORT | Clinical Summary ---
Author Author Renaldo, Florecita Munoz Organization [facility] [place] Address Unknown Phone Unavailable Allergies, Adverse Reactions, [...] PhD Hyperpotassemia GERD 530.81 Resolved Kylie Yokum SHUTTLE FITTING SUPERVISOR Esophageal reflux Health maintenance exam V70.0 Resolved Adolfo Yates MD Routine general medical examination at a health care facility Anemia 285.9 Resolved Kylie Yanet SHUTTLE FITTING SUPERVISOR Anemia, unspecified Personal history of malignant neoplasm of large intestine V10.05 Active Adam Yates MD Personal history of malignant neoplasm of large intestine Hypomagnesemia 275.2 Resolved Kylie Yanet SHUTTLE FITTING SUPERVISOR Disorders of magnesium metabolism Weakness 780.79 Resolved [...] Sebaceous cyst, scalp 706.2 Resolved Kylie Yokum SHUTTLE FITTING SUPERVISOR Sebaceous cyst Cervical lymphadenopathy, anterior, left 785.6 Resolv ed Kylie Yokum SHUTTLE FITTING SUPERVISOR Enlargement of lymph nodes Need for prophylactic vaccination and inoculation against in fluenza V04.81 Resolved Adam Yates MD Need for prophylactic vaccination and inoculation against influenza Preventive health care V70.0 Active Kylie Yokum SHUTTLE FITTING SUPERVISOR Routine general medical examination at a health care facility Thyroid nodule, left 241.0 Active Kylie Yokum A PRN Nontoxic uninodular goiter Screening mammogram V76.12 Active Kylie Yokum AP RN Other screening mammogram Mandy 706.2 Resolved Kylie Yokum SHUTTLE FITTING SUPERVISOR Sebaceous cyst Colon cancer, ascending 153.6 Resolved Kylie Yok um SHUTTLE FITTING SUPERVISOR Malignant neoplasm of ascending colon Foot pain, left 729.5 Active 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 Pain in limb Splinter 919.6 Active Kylie Yokum SHUTTLE FITTING SUPERVISOR Superficial foreign body (splinter) of other, multiple, and unspecified sites, without major open wound and without mention of infection Rash 782.1 Active Kylie Yokum SHUTTLE FITTING SUPERVISOR R aurora and other nonspecific skin eruption ABDOMINAL PAIN, RIGHT LOWER QUADRANT ICD-789.03 Inactive Kina Joshua SHUTTLE FITTING SUPERVISOR ADENOCARCINOMA, COLON, 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 Dick Yates MD ABDOMINAL PAIN, GENERALIZED ICD-789.07 Inactive Hope Benavidez MD PhD FEVER UNSPECIFIED ICD-780.60 Inactive Hope cohn MD PhD UNSPECIFIED VENOUS INSUFFICIENCY ICD-459.81 [place] ctive Adam Yates MD ADENOCARCINOMA, 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 Inac tive Hope Benavidez MD PhD Hyperkalemia ICD-276.7 Inactive Hope Benavidez MD PhD GERD ICD-530.81 Inactive Kylie Yanet SHUTTLE FITTING SUPERVISOR 2015 Health maintenance exam ICD-V70.0 Bam Yates MD Anemia ICD-285.9 Inactive Kylie Holt SHUTTLE FITTING SUPERVISOR 07/24 Hypomagnesemia ICD-275.2 Inactive Kylie Yokum SHUTTLE FITTING SUPERVISOR Weakness ICD-780.79 Inactive Hope Benavidez MD [...] Sebaceous cyst, scalp ICD-706.2 Inactive Tracy Holt SHUTTLE FITTING SUPERVISOR Cervical lymphadenopathy, anterior, left ICD-785.6 Inactive Kylie Holt SHUTTLE FITTING SUPERVISOR Need for prophylactic vaccination and inoculation against in fluenza ICD-V04.81 Inactive Adam Yates MD Mandy ICD-706.2 Inactive Kylie Holt AMY 07/20 Colon cancer, ascending ICD-153.6 Inactive Gabbi Escalonagabbioliver AMY Medication List Medication Instructions Start Date Stop Date Generic Name NDC Status Provider Patient Instruction VOLTAREN 1 % TRANSDERMAL GEL apply q 6-8 hour to left arm as needed for pain DICLOFENAC SODIUM 57289030459 Active Kylie Holt AMY Active COQ10 100 MG ORAL CAPSULE 1 daily COENZYME Q10 446019 05767 Active LETY Nation Active VITAMIN D3 2000 UNIT ORAL CAPSULE Melaleuca-One daily CHOLECALCIFEROL 02872247976 Active Kyile Holt APRN Active PROBIOTIC DAILY ORAL CAPSULE Take one daily PROBIO TIC PRODUCT 02820836075 Active Kylie Holt AMY Active IRON 325 (65 Fe) MG ORAL TABLET 1 every other day FERROUS SULFATE 21606569013 No Longer Active Kylie Holt AMY Active FLORANEX ORAL PACKET 1 pack three times daily, for bowel health LACTOBACILLUS 17653456587 No Longer Active Kylie Holt AMY Active LOMOTIL 2.5-0.025 MG ORAL TABLET 1 tab by mouth prn 23/10/23 DIPHENOXYLATE-ATROPINE 64247756150 No Longer Active Kylie Holt SHUTTLE FITTING SUPERVISOR Active MAGNESIUM GLUCONATE 250 MG ORAL TABLET 1 tab tid 23/10/23 MAGNESIUM GLUCONATE 96775625755 No Longer Active Kylie Holt SHUTTLE FITTING SUPERVISOR Active CYANOCOBALAMIN 1000 MCG/ML INJECTION SOLUTION 1 injection ev ruben 2 weeks CYANOCOBALAMIN 40082026529 No Longer Active Kylie boyd SHUTTLE FITTING SUPERVISOR Active ATENOLOL 25 MG ORAL TABLET 1/2 pill by mouth daily, fo r headaches, blood pressure ATENOLOL 89921359773 Active Kylie Holt SHUTTLE FITTING SUPERVISOR Active PROPRANOLOL HCL 80 MG ORAL TABLET 1 tab tue. and thur. PROPRANOLOL HCL 76348546789 No Longer Active Hope Benavidez MD PhD A ctive VITAMIN D3 4000 IU 1 tab 3 times daily VITAMIN D3 4000 IU No Longer Active Hope Benavidez MD PhD Active BACTRIM DS 800-160 MG ORAL TABLET 1 pill by mouth twice claudio y, for UTI SULFAMETHOXAZOLE-TRIMETHOPRIM 15740165168 No Longer Active Hope Benavidez MD PhD Active PROLIA 60 MG/ML SUBCUTANEOUS SOLUTION 1 shot every 6 months for osteoprosis DENOSUMAB 30388597085 Active Hope Benavidez MD PhD Active CALCIUM + D + K 750-500-40 MG-UNT-MCG ORAL TABLET 1 tab by m [facility] twice daily CALCIUM-VITAMIN D-VITAMIN K 43687685224 Active Hope valdez MD PhD Active DAILY VALUE MULTIVITAMIN ORAL TABLET 1 tab by mouth twice daily 201 05/16/14 MULTIPLE VITAMIN 45353559175 Active Hope Benavidez MD PhD Acti ve FISH OIL 306 MG CAPS 1 tab by mouth three times daily OMEGA-3 FATTY ACIDS 45003515432 Active Hope Benavidez MD PhD Active LUTEIN 10 MG ORAL TABLET 1 tab daily LUTEIN 64293138 408 Active Hope Benavidez MD PhD Active TRIAMTERENE-HCTZ 37.5-25 MG ORAL TABLET 1 tab by mouth daily 10/22 TRIAMTERENE-HCTZ 81427974876 Active Kylie Holt SHUTTLE FITTING SUPERVISOR Active CYCLOBENZAPRINE HCL 10 MG ORAL TABLET 1 tablet by mout h three times daily as needed for headaches CYCLOBENZAPRINE HCL 57978532179 No Longer Active Adam Yates MD Active OMEPRAZOLE 20 MG ORAL CAPSULE DELAYED RELEASE 1 tablet by mo [facility] daily for GERD OMEPRAZOLE 17029724512 No Longer Active Adam Yates MD Active ZOFRAN 8 MG ORAL TABLET 1 tab by mouth every 12 hours prn 4 ONDANSETRON HCL 11977732741 No Longer Active Adam Yates MD Active PHENADOZ 25 MG RECTAL SUPPOSITORY 1 every 4 hrs. PRN 2 PROMETHAZINE HCL 43241245832 No Longer Active Adam Yates MD A ctive POTASSIUM CHLORIDE 20 MEQ ORAL PACKET by mouth twice a day prn 2 POTASSIUM CHLORIDE 73863326545 No Longer Active Adam Carpenter MD Active PROMETHAZINE HCL 25 MG ORAL TABLET 1 Q. 4 hr. PRN PROMETHAZINE HCL 37419505652 No Longer Active Adam Yates MD Active INNOPRAN XL 120 MG ORAL CAPSULE EXTENDED RELEASE 24 HO UR Take one by mouth daily PROPRANOLOL HCL SR BEADS 33230320277 No Longer Active Adam Yates MD Active FLAGYL 500 MG ORAL TABLET 1 pill by mouth three times daily, for diarrhea METRONIDAZOLE 93412813297 No Longer Active Hope landers MD PhD Active DYAZIDE 37.5-25 MG ORAL CAPSULE 1 qd TRIA MTERENE-HCTZ 12637409553 No Longer Active Hope Benavidez MD PhD Active PROZAC 20 MG ORAL CAPSULE 1 q d FLUOXETINE HCL 83378397401 No Longer Active Hope Benavidez MD PhD Active SIMVASTATIN 40 MG ORAL TABLET 1 qd SIMVAS TATIN 92263149844 No Longer Active Adam Yates MD Active MELOXICAM 15 MG ORAL TABLET 1 qd MELOXICAM 19814942867 No Longer Active Adam Yates MD Active IMODIUM A-D 2 MG ORAL TABLET 2 onset at diarrhea and prn. LOPERAMIDE HCL 16753867269 Active Hope Benavidez MD PhD Active EXCEDRIN EXTRA STRENGTH 250-250-65 MG ORAL TABLET 1-2 q6h IA N headache [id number] 89659596498 Active Hope Benavidez MD PhD Active FLAGYL 500 MG ORAL TABLET 1 qid METRONIDAZOL E 11776768580 No Longer Active Adam Yates MD Active LEVAQUIN 750 MG ORAL TABLET 1 qd LEVOFLOXAC IN 68832159638 No Longer Active Adam Yates MD Active ADULT ASPIRIN LOW STRENGTH 81 MG ORAL TABLET DISINTEGRATING 1 qd ASPIRIN 47770322341 Active Hope Benavidez MD PhD Active LEVAQUIN 750 MG ORAL TABLET 1 qd LEVAQUIN 750 MG ORAL TABLET 002858 LEVOFLOXACIN Inactive FLAGYL 500 MG ORAL TABLET 1 qid FLAGYL 500 MG ORAL TABLET 352093 METRONIDAZOLE Inactive MELOXICAM 15 MG ORAL TABLET 1 qd MELOXICAM 15 MG ORAL TABLET 558232 MELOXICAM Inactive SIMVASTATIN 40 MG ORAL TABLET 1 qd SIMVASTATIN 40 MG ORAL TABLET 348296 SIMVASTATIN Inactive PROZAC 20 MG ORAL CAPSULE 1 q d PROZAC 20 MG ORAL CAPSULE 217484 FLUOXETINE HCL Inactive DYAZIDE 37.5-25 MG ORAL CAPSULE 1 qd 5 DYAZIDE 37.5-25 MG ORAL CAPSULE 951669 TRIAMTERENE-HCTZ Inactive INNOPRAN XL 120 MG ORAL CAPSULE EXTENDED RELEASE 24 HO UR Take one by mouth daily INNOPRAN XL 120 MG ORAL CAPSULE EXTENDED RELEASE 24 HOUR PROPRANOLOL HCL SR BEADS Inactive PROMETHAZINE HCL 25 MG ORAL TABLET 1 Q. 4 hr. PRN 2013 PROMETHAZINE HCL 25 MG ORAL TABLET 200095 PROMETHAZINE HCL Inactive POTASSIUM CHLORIDE 20 MEQ ORAL PACKET by mouth twice a day prn 2 POTASSIUM CHLORIDE 20 MEQ ORAL PACKET 8871256 POTASSIUM CHLORIDE Inactive PHENADOZ 25 MG RECTAL SUPPOSITORY 1 every 4 hrs. PRN 2 PHENADOZ 25 MG RECTAL SUPPOSITORY 584781 PROMETHAZINE HCL Inactive ZOFRAN 8 MG ORAL TABLET 1 tab by mouth every 12 hours prn 4 ZOFRAN 8 MG ORAL TABLET 634813 ONDANSETRON HCL Inactive OMEPRAZOLE 20 MG ORAL CAPSULE DELAYED RELEASE 1 tablet by mo uth daily for GERD OMEPRAZOLE 20 MG ORAL CAPSULE DELAYED RELEASE 19 8051 OMEPRAZOLE Inactive CYCLOBENZAPRINE HCL 10 MG ORAL TABLET 1 tablet by mout h three times daily as needed for headaches CYCLOBENZAPRINE HCL 10 MG ORAL TABLET 448924 CYCLOBENZAPRINE HCL Inactive VITAMIN D3 4000 IU 1 tab 3 times daily VITAMIN D3 4000 IU Inactive PROPRANOLOL HCL 80 MG ORAL TABLET 1 tab tue. and thur. PROPRANOLOL HCL 80 MG ORAL TABLET 722660 PROPRANOLOL HCL Inacti ve CYANOCOBALAMIN 1000 MCG/ML INJECTION SOLUTION 1 injection ev ruben 2 weeks CYANOCOBALAMIN 1000 MCG/ML INJECTION SOLUTION 30 9594 CYANOCOBALAMIN Inactive MAGNESIUM GLUCONATE 250 MG ORAL TABLET 1 tab tid 20 23/10/23 MAGNESIUM GLUCONATE 250 MG ORAL TABLET 453767 MAGNESIUM GLUCONATE Inactive LOMOTIL 2.5-0.025 MG ORAL TABLET 1 tab by mouth prn 20 23/10/23 LOMOTIL 2.5-0.025 MG ORAL TABLET 5643132 DIPHENOXYLATE-ATROPINE Inac tive FLORANEX ORAL PACKET 1 pack three times daily, for bowel health FLORANEX ORAL PACKET LACTOBACILLUS Inactive IRON 325 (65 Fe) MG ORAL TABLET 1 every other day 2015 IRON 325 (65 Fe) MG ORAL TABLET 052775 FERROUS SULFATE Inactive FLAGYL 500 MG ORAL TABLET 1 pill by mouth three times daily, for diarrhea FLAGYL 500 MG ORAL TABLET 111137 METRONIDAZOLE I nactive BACTRIM DS 800-160 MG ORAL TABLET 1 pill by mouth twice claudio y, for UTI BACTRIM DS 800-160 MG ORAL TABLET 996846 SULFAMETHOXAZOLE-TRIMETHOPRIM Inactive Advance Directives Directive Description Start [...] 11 .0-15.0 platelet count 157 THOUSAND/UL 10*3/mm3 655-603 7412/04/20 mean platelet volume 8.9 fL 7.5-12.5 Lab Report: CEA - Serology carcinoembryonic antigen 0.9 ng/mL Lab Report: Lipid Panel, Calcium - Chemi stry calcium, serum 9.0 mg/dL 8.5-10.1 LDL cholesterol, serum 118 mg/dL 0-130 HDL cholesterol, serum 56 mg/dL 32-96 triglyceride, serum, fasting 129 mg/dL 30-200 cholesterol, serum 200 mg/dL 130-200 Lab Report: MicroAlb Random w/creat/6517 - Urinalysis microalbumin/total urine volume 8 mg/L Units converted. See lab report for original value. microalbumin/creatinine ratio, urine 15 MCG/MG CREAT mg/L <30 Encounters Code Encounter Date Provider Facility CPT-02189 Level 3 Est. Patient 17:54:48 CDT Kylie Yok um [facility] CPT-73111 Level 3 Est. Patient 16:26:30 CDT Kina blackmon [facility] CPT-72290 Level 3 New Patient 16:22:01 FENCE MAKING MACHINE OPERATOR Adam Yates MD [facility] CPT-68085 Level 4 Est. Patient 17:00:48 CDT Kylie Lund [facility] CPT-85631 Level 3 Est. Patient 13:15:54 CDT Kylie Lund [facility] CPT-65425 Level 3 Est. Patient 09:10:11 CDT Kylie Lund [facility] CPT-88975 Level 4 Est. Patient 12:08:30 FENCE MAKING MACHINE OPERATOR Hope cohn MD [facility] CPT-93739 Level 4 Est. Patient 19:08:42 FENCE MAKING MACHINE OPERATOR Hope cohn MD [facility] CPT-52846 Level 4 Est. Patient 20:04:51 CDT Hope cohn MD [facility] CPT-77925 Level 3 New Patient 01:46:11 FENCE MAKING MACHINE OPERATOR Hope landers MD [facility] Procedures Code Procedure Name Date Entry Date Standard Desc ription CPT-56064 First Vx - Ix admin for Medicare patients 11:19:30 CDT CPT-02676 Fluzone High-Dose Intramuscular Suspension 12/07 11:19:30 CDT CPT-J0897 Prolia 60 mg 14:55:42 CDT CPT-00665 Abx/Therapy Injection 14:55:42 CDT CPT-01343 Bone Density - XRAY USE ONLY 10:27:12 CDT 2 CPT-G0439 Subsequent Annual Wellness Exam 17:54:53 CDT CPT-62307 Foot, left, comp min 3V - XRAY USE ONLY 12:22:49 CDT CPT-G0009 Administration of Pneumococcal Vaccine 3 12:18:00 CDT CPT-04782 Pneumovax 23 Injection Injectable 25 MCG /0.5ML 12:18:00 CDT CPT-J0897 Prolia 60 mg 14:14:16 FENCE MAKING MACHINE OPERATOR CPT-20917 Abx/Therapy Injection 14:14:15 FENCE MAKING MACHINE OPERATOR CPT-91534 Lipid - LAB USE ONLY 10:01:52 FENCE MAKING MACHINE OPERATOR 2 CPT-79073 Calcium - LAB USE ONLY 10:01:51 FENCE MAKING MACHINE OPERATOR CPT-66444 Venipuncture Draw Fee 10:01:51 FENCE MAKING MACHINE OPERATOR CPT-LR Lesion Removal 16:22:01 FENCE MAKING MACHINE OPERATOR CPT-28965 TSH - LAB USE ONLY 14:26:02 CDT CPT-23480 CMP - LAB USE ONLY 14:26:01 CDT CPT-95387 CBC with Diff - LAB USE ONLY 14:26:01 CDT 2 CPT-82642 Venipuncture Draw Fee 14:26:01 CDT CPT-58698 First Vx - Ix admin for Medicare patients 13:27:08 CDT CPT-12064 Fluzone High-Dose Intramuscular Suspension 11/26 13:27:08 CDT CPT-G0438 Initial Annual Wellness Exam 14:19:57 CD T CPT-G0009 Administration of Pneumococcal Vaccine 9 11:36:25 CDT CPT-07352 Prevnar 13 Intramuscular Suspension 1 1:36:25 CDT CPT-49414 Prevnar 13 Intramuscular Suspension 1 0:40:58 CDT CPT-J0897 Prolia 60 mg 10:37:16 CDT CPT-79976 Abx/Therapy Injection 10:37:16 CDT CPT-J0897 Prolia 60 mg 16:09:34 FENCE MAKING MACHINE OPERATOR CPT-J0897 Prolia 60 mg 11:10:35 FENCE MAKING MACHINE OPERATOR CPT-52179 Abx/Therapy Injection 11:10:35 FENCE MAKING MACHINE OPERATOR CPT-000 Give Appropriate Flu Vaccine 17:01:15 FENCE MAKING MACHINE OPERATOR 2 CPT-14828 Fluzone High Dose (65+) 15:03:08 FENCE MAKING MACHINE OPERATOR 02/15 CPT-62069 Immunization Single Admin 15:03:08 FENCE MAKING MACHINE OPERATOR 2014 CPT-OV Office Visit 15:58:06 CDT CPT-J0897 Prolia 60 mg 08:45:38 CDT CPT-32330 Abx/Therapy Injection 08:45:38 CDT CPT-J3420 Vitamin B12 1000mcg (Cyanocobalamin) 09:26:20 FENCE MAKING MACHINE OPERATOR CPT-43799 Abx/Therapy Injection 09:26:20 FENCE MAKING MACHINE OPERATOR CPT-J3420 Vitamin B12 1000mcg (Cyanocobalamin) 09:44:40 FENCE MAKING MACHINE OPERATOR CPT-44233 Abx/Therapy Injection 09:44:40 FENCE MAKING MACHINE OPERATOR CPT-J3420 Vitamin B12 1000mcg (Cyanocobalamin) 09:15:54 FENCE MAKING MACHINE OPERATOR CPT-24153 Abx/Therapy Injection 09:15:54 FENCE MAKING MACHINE OPERATOR CPT-J3420 Vitamin B12 1000mcg (Cyanocobalamin) 09:46:44 FENCE MAKING MACHINE OPERATOR CPT-04861 Abx/Therapy Injection 09:46:44 FENCE MAKING MACHINE OPERATOR CPT-J3420 Vitamin B12 1000mcg (Cyanocobalamin) 09:47:34 FENCE MAKING MACHINE OPERATOR CPT-98134 Abx/Therapy Injection 09:47:34 FENCE MAKING MACHINE OPERATOR CPT-J3420 Vitamin B12 1000mcg (Cyanocobalamin) 14:35:50 FENCE MAKING MACHINE OPERATOR CPT-J3420 Vitamin B12 1000mcg (Cyanocobalamin) 09:25:05 FENCE MAKING MACHINE OPERATOR CPT-27005 Abx/Therapy Injection 09:25:05 FENCE MAKING MACHINE OPERATOR CPT-G0008 Administration of Influenza Virus Vaccine 13:36:47 CDT CPT-37387 Fluzone High-Dose Intramuscular Suspension 11/15 13:36:47 CDT CPT-J0897 Prolia 60 mg 08:50:41 CDT CPT-94371 Abx/Therapy Injection 08:50:41 CDT CPT-98166 Bone Density 12:06:12 CDT CPT-14881 Bone Density 08:54:40 CDT CPT-OV Office Visit 15:37:02 CDT CPT-79308 Postop F/U Visit 15:47:49 CDT CPT-14725 Postop F/U Visit 15:21:02 CDT [facility] Transitional Care Mgmt-High 07:52:27 CDT 20 20/06/01 CPT-84701 Venipuncture Draw Fee 13:51:18 CDT CPT-75424 Venipuncture Draw Fee 10:14:55 FENCE MAKING MACHINE OPERATOR CPT-54938 Venipuncture Draw Fee 13:39:45 FENCE MAKING MACHINE OPERATOR CPT-OV Office Visit 15:11:22 FENCE MAKING MACHINE OPERATOR CPT-87566 Venipuncture Draw Fee 09:20:49 FENCE MAKING MACHINE OPERATOR CPT-80897 Venipuncture Draw Fee 16:52:15 FENCE MAKING MACHINE OPERATOR CPT-31109 Venipuncture Draw Fee 10:37:24 FENCE MAKING MACHINE OPERATOR CPT-28541 Venipuncture Draw Fee 08:21:21 FENCE MAKING MACHINE OPERATOR CPT-46449 Venipuncture Draw Fee 08:30:20 FENCE MAKING MACHINE OPERATOR CPT-79262 Venipuncture Draw Fee 14:53:21 FENCE MAKING MACHINE OPERATOR CPT-45389 Venipuncture Draw Fee 09:40:56 FENCE MAKING MACHINE OPERATOR CPT-23536 Venipuncture Draw Fee 10:30:47 FENCE MAKING MACHINE OPERATOR CPT-07524 Venipuncture Draw Fee 10:46:17 FENCE MAKING MACHINE OPERATOR CPT-97499 Venipuncture Draw Fee 11:12:45 FENCE MAKING MACHINE OPERATOR CPT-87344 Venipuncture Draw Fee 09:53:33 FENCE MAKING MACHINE OPERATOR CPT-81150 Venipuncture Draw Fee 11:53:51 FENCE MAKING MACHINE OPERATOR CPT-98487 Venipuncture Draw Fee 10:33:50 FENCE MAKING MACHINE OPERATOR CPT-78503 Venipuncture Draw Fee 10:05:01 FENCE MAKING MACHINE OPERATOR CPT-79862 Venipuncture Draw Fee 14:32:52 FENCE MAKING MACHINE OPERATOR CPT-95366 Venipuncture Draw Fee 09:46:13 FENCE MAKING MACHINE OPERATOR CPT-58991 Venipuncture Draw Fee 11:34:27 FENCE MAKING MACHINE OPERATOR CPT-32607 Venipuncture Draw Fee 13:17:16 FENCE MAKING MACHINE OPERATOR CPT-79080 Venipuncture Draw Fee 12:05:39 CDT CPT-28031 Venipuncture Draw Fee 12:49:12 CDT CPT-89250 Venipuncture Draw Fee 12:37:18 CDT CPT-79859 Venipuncture Draw Fee 10:57:11 CDT CPT-24961 Venipuncture Draw Fee 13:47:40 CDT CPT-81209 Venipuncture Draw Fee 10:02:17 CDT CPT-25667 TB Tubersol 17:32:32 CDT CPT-OV Office Visit 16:21:53 CDT CPT-OV Office Visit 15:49:22 CDT CPT-OV Office Visit 17:16:31 CDT CPT-OV Office Visit 10:43:31 CDT
--- OUTSIDE RECORDS SUMMARY | 2019-02-09 12:23 | XMS REPORT | Clinical Summary ---
Author Author Renaldo, Florecita Munoz Organization [facility] [employer] Address Unknown Phone Unavailable Allergies, Adverse Reactions, [...] PhD Hyperpotassemia GERD 530.81 Resolved Kylie Yokum ENTRY LEVEL MARKETING ASSISTANT Esophageal reflux Health maintenance exam V70.0 Resolved Adolfo Yates MD Routine general medical examination at a health care facility Anemia 285.9 Resolved Kylie Yanet ENTRY LEVEL MARKETING ASSISTANT Anemia, unspecified Personal history of malignant neoplasm of large intestine V10.05 Active Adam Yates MD Personal history of malignant neoplasm of large intestine Hypomagnesemia 275.2 Resolved Kylie Yanet ENTRY LEVEL MARKETING ASSISTANT Disorders of magnesium metabolism Weakness 780.79 Resolved [...] Sebaceous cyst, scalp 706.2 Resolved Kylie Yokum ENTRY LEVEL MARKETING ASSISTANT Sebaceous cyst Cervical lymphadenopathy, anterior, left 785.6 Resolv ed Kylie Yokum ENTRY LEVEL MARKETING ASSISTANT Enlargement of lymph nodes Need for prophylactic vaccination and inoculation against in fluenza V04.81 Resolved Adam Yates MD Need for prophylactic vaccination and inoculation against influenza Preventive health care V70.0 Active Kylie Yokum ENTRY LEVEL MARKETING ASSISTANT Routine general medical examination at a health care facility Thyroid nodule, left 241.0 Active Kylie Yokum A PRN Nontoxic uninodular goiter Screening mammogram V76.12 Active Kylie Yogabbium AP RN Other screening mammogram Mandy 706.2 Resolved Kylie Yokum ENTRY LEVEL MARKETING ASSISTANT Sebaceous cyst Colon cancer, ascending 153.6 Resolved Kylie Yok um ENTRY LEVEL MARKETING ASSISTANT Malignant neoplasm of ascending colon Foot pain, left 729.5 Active 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 Pain in limb Splinter 919.6 Active Kylie Yokum ENTRY LEVEL MARKETING ASSISTANT Superficial foreign body (splinter) of other, multiple, and unspecified sites, without major open wound and without mention of infection ABDOMINAL PAIN, RIGHT LOWER QUADRANT ICD-789.03 Inactive Kina Joshua ENTRY LEVEL MARKETING ASSISTANT ADENOCARCINOMA, COLON, 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 Dick Yates MD ABDOMINAL PAIN, GENERALIZED ICD-789.07 Inactive Hope Benavidez MD PhD FEVER UNSPECIFIED ICD-780.60 Inactive Hope cohn MD PhD UNSPECIFIED VENOUS INSUFFICIENCY ICD-459.81 Elda ctive Adam Yates MD ADENOCARCINOMA, 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 Inac tive Hope Benavidez MD PhD Hyperkalemia ICD-276.7 Inactive Hope Benavidez MD PhD GERD ICD-530.81 Inactive Kylie Holt ENTRY LEVEL MARKETING ASSISTANT 2015 Health maintenance exam ICD-V70.0 Inactive Adolfo Yates MD Anemia ICD-285.9 Inactive Kylie Holt ENTRY LEVEL MARKETING ASSISTANT 07/24 Hypomagnesemia ICD-275.2 Inactive Kylie Holt ENTRY LEVEL MARKETING ASSISTANT Weakness ICD-780.79 Inactive Hope Benavidez MD P [...] Sebaceous cyst, scalp ICD-706.2 Inactive Tracy Holt ENTRY LEVEL MARKETING ASSISTANT Cervical lymphadenopathy, anterior, left ICD-785.6 Inactive Kylie Holt ENTRY LEVEL MARKETING ASSISTANT Need for prophylactic vaccination and inoculation against in fluenza ICD-V04.81 Inactive Adam Yates MD Mandy ICD-706.2 Inactive Kylie Holt ENTRY LEVEL MARKETING ASSISTANT 07/20 Colon cancer, ascending ICD-153.6 Inactive Gabbi Holt ENTRY LEVEL MARKETING ASSISTANT Medication List Medication Instructions Start Date Stop Date Generic Name NDC Status Provider Patient Instruction COQ10 100 MG ORAL CAPS 1 daily COENZYME Q10 206827896 20 Active LETY Nation Active VITAMIN D3 2000 UNIT ORAL CAPS Melaleuca-One daily CHOLECALCIFEROL 21371493610 Active Kylie Holt APRN Active PROBIOTIC DAILY ORAL CAPS Take one daily PROBIOTIC PRODUCT 03737504313 Active Kylie Holt APRN Active IRON 325 (65 FE) MG TABS 1 every other day FERR OUS SULFATE 41511194749 No Longer Active Kylie Holt APRN Active FLORANEX PACK 1 pack three times daily, for bowel health LACTOBACILLUS 76395297742 No Longer Active Kylie Holt APRN Active LOMOTIL 2.5-0.025 MG TABS 1 tab by mouth prn 4 DIPHENOXYLATE-ATROPINE 19434106569 No Longer Active Kylie Holt APRN Active MAGNESIUM GLUCONATE 250 MG TABS 1 tab tid 4 MAGNESIUM GLUCONATE 78436646439 No Longer Active Kylie Holt APRN Active CYANOCOBALAMIN 1000 MCG/ML INJ SOLN 1 injection every 2 weeks 20 20/01/03 CYANOCOBALAMIN 51000023337 No Longer Active Kylie Holt APRN Active ATENOLOL 25 MG ORAL TABS 1/2 pill by mouth daily, for headac hes, blood pressure ATENOLOL 72263522111 Active Kylieshubham Holt APRN Active PROPRANOLOL HCL 80 MG TABS 1 tab tue. and thur. 04/10 PROPRANOLOL HCL 30463391335 No Longer Active Hope Benavidez MD PhD A ctive VITAMIN D3 4000 IU 1 tab 3 times daily VITAMIN D3 4000 IU No Longer Active Hope Benavidez MD PhD Active BACTRIM DS 800-160 MG TABS 1 pill by mouth twice daily, for UTI SULFAMETHOXAZOLE-TRIMETHOPRIM 19987791318 No Longer Active A attila Benavidez MD PhD Active PROLIA 60 MG/ML SOLN 1 shot every 6 months for osteoprosis DENOSUMAB 93567649309 Active Hope Benavidez MD PhD Active CALCIUM + D + K 750-500-40 MG-UNT-MCG TABS 1 tab by mouth tw ice daily CALCIUM-VITAMIN D-VITAMIN K 95983204514 Active Hope landers MD PhD Active DAILY VALUE MULTIVITAMIN TABS 1 tab by mouth twice daily MULTIPLE VITAMIN 82483832680 Active Hope Benavidez MD PhD Active FISH OIL 306 MG CAPS 1 tab by mouth three times daily OMEGA-3 FATTY ACIDS 40095680268 Active Hope Benavidez MD PhD Active LUTEIN 10 MG TABS 1 tab daily LUTEIN 37190204076 Act cash Hope Benavidez MD PhD Active TRIAMTERENE-HCTZ 37.5-25 MG TABS 1 tab by mouth daily TRIAMTERENE-HCTZ 36497738912 Active Kylie Holt APRN Active CYCLOBENZAPRINE HCL 10 MG TABS 1 tablet by mouth three times daily as needed for headaches CYCLOBENZAPRINE HCL 07683463150 No Longe r Active Adam Yates MD Active OMEPRAZOLE 20 MG CPDR 1 tablet by mouth daily for GERD OMEPRAZOLE 81731020596 No Longer Active Adam Yates MD A ctive ZOFRAN 8 MG TABS 1 tab by mouth every 12 hours prn 201 05/16/09 ONDANSETRON HCL 59156881913 No Longer Active Adam Yates MD Active PHENADOZ 25 MG SUPP 1 every 4 hrs. PRN PROMETHA ZINE HCL 97571911263 No Longer Active Adam Yates MD Active POTASSIUM CHLORIDE 20 MEQ PACK by mouth twice a day prn POTASSIUM CHLORIDE 61118761105 No Longer Active Adam Yates MD Active PROMETHAZINE HCL 25 MG TABS 1 Q. 4 hr. PRN PROM ETHAZINE HCL 66284318706 No Longer Active Adam Yates MD Active INNOPRAN XL 120 MG [id number] Take one by mouth daily 2 PROPRANOLOL HCL SR BEADS 82176705699 No Longer Active Adam aYtes MD A ctive FLAGYL 500 MG TABS 1 pill by mouth three times daily, for diarrh ea METRONIDAZOLE 43936566422 No Longer Active Hope Benavidez MD PhD Active DYAZIDE 37.5-25 MG CAPS 1 qd TRIAMTERENE-HC TZ 34262942974 No Longer Active Hope Benavidez MD PhD Active PROZAC 20 MG CAPS 1 q d FLUOXETINE HCL 79040 444874 No Longer Active Hope Benavidez MD PhD Active SIMVASTATIN 40 MG TABS 1 qd SIMVASTATIN 004 39194377 No Longer Active Adam Yates MD Active MELOXICAM 15 MG TABS 1 qd MELOXICAM 1363410 1731 No Longer Active Adam Yates MD Active IMODIUM A-D 2 MG TABS 2 onset at diarrhea and prn. LOPERAMIDE HCL 52389670639 Active Hope Benavidez MD PhD Active EXCEDRIN EXTRA STRENGTH 250-250-65 MG TABS 1-2 q6h PRN headache 201 04/16/21 [id number] 90295489305 Active Hope Benavidez MD PhD Active FLAGYL 500 MG TABS 1 qid METRONIDAZOLE 36123 067523 No Longer Active Adam Yates MD Active LEVAQUIN 750 MG TABS 1 qd LEVOFLOXACIN 5486 7286210 No Longer Active Adam Yates MD Active ADULT ASPIRIN LOW STRENGTH 81 MG TBDP 1 qd A SPIRIN 77342452991 Active Hope Benavidez MD PhD Active LEVAQUIN 750 MG TABS 1 qd LEVAQUIN 750 MG T ABS 228691 LEVOFLOXACIN Inactive FLAGYL 500 MG TABS 1 qid FLAGYL 500 MG TABS 902176 METRONIDAZOLE Inactive MELOXICAM 15 MG TABS 1 qd MELOXICAM 15 MG T ABS 875810 MELOXICAM Inactive SIMVASTATIN 40 MG TABS 1 qd SIMVASTATIN 40 MG TABS 456454 SIMVASTATIN Inactive PROZAC 20 MG CAPS 1 q d PROZAC 20 MG CAPS 31 0385 FLUOXETINE HCL Inactive DYAZIDE 37.5-25 MG CAPS 1 qd DYAZIDE 37.5 -25 MG CAPS 186598 TRIAMTERENE-HCTZ Inactive INNOPRAN XL 120 MG [id number] Take one by mouth daily 2 INNOPRAN XL 120 MG [id number] PROPRANOLOL HCL SR BEADS Inactive PROMETHAZINE HCL 25 MG TABS 1 Q. 4 hr. PRN PROMETHAZINE HCL 25 MG TABS 907469 PROMETHAZINE HCL Inactive POTASSIUM CHLORIDE 20 MEQ PACK by mouth twice a day prn POTASSIUM CHLORIDE 20 MEQ PACK 4398022 POTASSIUM CHLORIDE Inactive PHENADOZ 25 MG SUPP 1 every 4 hrs. PRN PHENADOZ 2 5 MG SUPP 014582 PROMETHAZINE HCL Inactive ZOFRAN 8 MG TABS 1 tab by mouth every 12 hours prn 201 05/16/09 ZOFRAN 8 MG TABS 206018 ONDANSETRON HCL Inactive OMEPRAZOLE 20 MG CPDR 1 tablet by mouth daily for GERD OMEPRAZOLE 20 MG CPDR 245810 OMEPRAZOLE Inactive CYCLOBENZAPRINE HCL 10 MG TABS 1 tablet by mouth three times daily as needed for headaches CYCLOBENZAPRINE HCL 10 MG TABS 554485 CYCLOBENZAPRINE HCL Inactive VITAMIN D3 4000 IU 1 tab 3 times daily VITAMIN D3 4000 IU Inactive PROPRANOLOL HCL 80 MG TABS 1 tab tue. and thur. 04/10 PROPRANOLOL HCL 80 MG TABS 072325 PROPRANOLOL HCL Inactive CYANOCOBALAMIN 1000 MCG/ML INJ SOLN 1 injection every 2 weeks 20 20/01/03 CYANOCOBALAMIN 1000 MCG/ML INJ SOLN 840769 CYANOCOBALAM IN Inactive MAGNESIUM GLUCONATE 250 MG TABS 1 tab tid 4 MAGNESIUM GLUCONATE 250 MG TABS 007271 MAGNESIUM GLUCONATE Inactive LOMOTIL 2.5-0.025 MG TABS 1 tab by mouth prn 4 LOMOTIL 2.5- 0.025 MG TABS 2172501 DIPHENOXYLATE-ATROPINE Inactive FLORANEX PACK 1 pack three times daily, for bowel health FLORANEX PACK LACTOBACILLUS Inactive IRON 325 (65 FE) MG TABS 1 every other day IRON 325 (65 FE) MG TABS 663466 FERROUS SULFATE Inactive FLAGYL 500 MG TABS 1 pill by mouth three times daily, for diarrh ea FLAGYL 500 MG TABS 162835 METRONIDAZOLE Inactive BACTRIM DS 800-160 MG TABS 1 pill by mouth twice daily, for UTI BACTRIM DS 800-160 MG TABS 065831 SULFAMETHOXAZOLE-TRIM ETHOPRIM Inactive Advance Directives Directive Description [...] 11 .0-15.0 platelet count 157 THOUSAND/UL 10*3/mm3 582-165 7717/04/20 mean platelet volume 8.9 fL 7.5-12.5 Lab Report: CBC W/DIFF, Comp. Metabolic Panel, Thyroid Stimulating Hormo ... - Chemistry sodium, serum 139 mmol/L 783-721 0036/10/20 carbon dioxide, venous blood 32.2 mmol/L 21.0-32 [...] - Chemi stry cholesterol, serum 200 mg/dL 702-075 3693/11/22 triglyceride, serum, fasting 129 mg/dL 30-200 HDL cholesterol, serum 56 mg/dL 32-96 LDL cholesterol, serum 118 mg/dL 0-130 calcium, serum 9.0 mg/dL 8.5-10.1 Lab Report: MicroAlb Random w/creat/6517 - Urinalysis microalbumin/total urine volume 8 mg/L Units converted. See lab report for original value. microalbumin/creatinine ratio, urine 15 MCG/MG CREAT mg/L <30 Encounters Code Encounter Date Provider Facility CPT-53814 Level 3 Est. Patient 17:54:48 CDT Kylie boyd [facility] CPT-16973 Level 3 Est. Patient 16:26:30 CDT Kina blackmon [facility] CPT-78783 Level 3 New Patient 16:22:01 AGILE TESTER Adam Yates MD [facility] CPT-42708 Level 4 Est. Patient 17:00:48 CDT Kylie Lund [facility] CPT-32169 Level 3 Est. Patient 13:15:54 CDT Kylieshubham Lund [facility] CPT-20802 Level 3 Est. Patient 09:10:11 CDT Kylie Lund [facility] CPT-53562 Level 4 Est. Patient 12:08:30 AGILE TESTER Hope cohn MD [facility] CPT-03984 Level 4 Est. Patient 19:08:42 AGILE TESTER Hope cohn MD [facility] CPT-93718 Level 4 Est. Patient 20:04:51 CDT Hope cohn MD [facility] CPT-94629 Level 3 New Patient 01:46:11 AGILE TESTER Hope landers MD [facility] Procedures Code Procedure Name Date Entry Date Standard Desc ription CPT-J0897 Prolia 60 mg 14:55:42 CDT CPT-72781 Abx/Therapy Injection 14:55:42 CDT CPT-99201 Bone Density - XRAY USE ONLY 10:27:12 CDT 2 CPT-G0439 Subsequent Annual Wellness Exam 17:54:53 CDT CPT-06795 Foot, left, comp min 3V - XRAY USE ONLY 12:22:49 CDT CPT-G0009 Administration of Pneumococcal Vaccine 3 12:18:00 CDT CPT-12587 Pneumovax 23 Injection Injectable 25 MCG /0.5ML 12:18:00 CDT CPT-J0897 Prolia 60 mg 14:14:16 AGILE TESTER CPT-38204 Abx/Therapy Injection 14:14:15 AGILE TESTER CPT-21259 Lipid - LAB USE ONLY 10:01:52 AGILE TESTER 2 CPT-47358 Calcium - LAB USE ONLY 10:01:51 AGILE TESTER CPT-06538 Venipuncture Draw Fee 10:01:51 AGILE TESTER CPT-LR Lesion Removal 16:22:01 AGILE TESTER CPT-10222 TSH - LAB USE ONLY 14:26:02 CDT CPT-96773 CMP - LAB USE ONLY 14:26:01 CDT CPT-37478 CBC with Diff - LAB USE ONLY 14:26:01 CDT 2 CPT-91649 Venipuncture Draw Fee 14:26:01 CDT CPT-38050 First Vx - Ix admin for Medicare patients 13:27:08 CDT CPT-47697 Fluzone High-Dose Intramuscular Suspension 11/26 13:27:08 CDT CPT-G0438 Initial Annual Wellness Exam 14:19:57 CD T CPT-G0009 Administration of Pneumococcal Vaccine 9 11:36:25 CDT CPT-49751 Prevnar 13 Intramuscular Suspension 1 1:36:25 CDT CPT-59124 Prevnar 13 Intramuscular Suspension 1 0:40:58 CDT CPT-J0897 Prolia 60 mg 10:37:16 CDT CPT-55927 Abx/Therapy Injection 10:37:16 CDT CPT-J0897 Prolia 60 mg 16:09:34 AGILE TESTER CPT-J0897 Prolia 60 mg 11:10:35 AGILE TESTER CPT-44098 Abx/Therapy Injection 11:10:35 AGILE TESTER CPT-000 Give Appropriate Flu Vaccine 17:01:15 AGILE TESTER 2 CPT-39396 Fluzone High Dose (65+) 15:03:08 AGILE TESTER 02/15 CPT-08576 Immunization Single Admin 15:03:08 AGILE TESTER 2014 CPT-OV Office Visit 15:58:06 CDT CPT-J0897 Prolia 60 mg 08:45:38 CDT CPT-14916 Abx/Therapy Injection 08:45:38 CDT CPT-J3420 Vitamin B12 1000mcg (Cyanocobalamin) 09:26:20 AGILE TESTER CPT-73573 Abx/Therapy Injection 09:26:20 AGILE TESTER CPT-J3420 Vitamin B12 1000mcg (Cyanocobalamin) 09:44:40 AGILE TESTER CPT-75327 Abx/Therapy Injection 09:44:40 AGILE TESTER CPT-J3420 Vitamin B12 1000mcg (Cyanocobalamin) 09:15:54 AGILE TESTER CPT-48950 Abx/Therapy Injection 09:15:54 AGILE TESTER CPT-J3420 Vitamin B12 1000mcg (Cyanocobalamin) 09:46:44 AGILE TESTER CPT-73350 Abx/Therapy Injection 09:46:44 AGILE TESTER CPT-J3420 Vitamin B12 1000mcg (Cyanocobalamin) 09:47:34 AGILE TESTER CPT-42431 Abx/Therapy Injection 09:47:34 AGILE TESTER CPT-J3420 Vitamin B12 1000mcg (Cyanocobalamin) 14:35:50 AGILE TESTER CPT-J3420 Vitamin B12 1000mcg (Cyanocobalamin) 09:25:05 AGILE TESTER CPT-14606 Abx/Therapy Injection 09:25:05 AGILE TESTER CPT-G0008 Administration of Influenza Virus Vaccine 13:36:47 CDT CPT-06269 Fluzone High-Dose Intramuscular Suspension 11/15 13:36:47 CDT CPT-J0897 Prolia 60 mg 08:50:41 CDT CPT-77459 Abx/Therapy Injection 08:50:41 CDT CPT-36836 Bone Density 12:06:12 CDT CPT-29122 Bone Density 08:54:40 CDT CPT-OV Office Visit 15:37:02 CDT CPT-84170 Postop F/U Visit 15:47:49 CDT CPT-26349 Postop F/U Visit 15:21:02 CDT CPT-[facility] Transitional Care Mgmt-High 07:52:27 CDT 20 20/06/01 CPT-15165 Venipuncture Draw Fee 13:51:18 CDT CPT-08248 Venipuncture Draw Fee 10:14:55 AGILE TESTER CPT-86670 Venipuncture Draw Fee 13:39:45 AGILE TESTER CPT-OV Office Visit 15:11:22 AGILE TESTER CPT-47448 Venipuncture Draw Fee 09:20:49 AGILE TESTER CPT-52598 Venipuncture Draw Fee 16:52:15 AGILE TESTER CPT-00714 Venipuncture Draw Fee 10:37:24 AGILE TESTER CPT-42708 Venipuncture Draw Fee 08:21:21 AGILE TESTER CPT-77029 Venipuncture Draw Fee 08:30:20 AGILE TESTER CPT-23309 Venipuncture Draw Fee 14:53:21 AGILE TESTER CPT-98536 Venipuncture Draw Fee 09:40:56 AGILE TESTER CPT-55030 Venipuncture Draw Fee 10:30:47 AGILE TESTER CPT-63006 Venipuncture Draw Fee 10:46:17 AGILE TESTER CPT-03454 Venipuncture Draw Fee 11:12:45 AGILE TESTER CPT-75576 Venipuncture Draw Fee 09:53:33 AGILE TESTER CPT-44496 Venipuncture Draw Fee 11:53:51 AGILE TESTER CPT-30742 Venipuncture Draw Fee 10:33:50 AGILE TESTER CPT-56603 Venipuncture Draw Fee 10:05:01 AGILE TESTER CPT-81797 Venipuncture Draw Fee 14:32:52 AGILE TESTER CPT-75636 Venipuncture Draw Fee 09:46:13 AGILE TESTER CPT-72205 Venipuncture Draw Fee 11:34:27 AGILE TESTER CPT-80600 Venipuncture Draw Fee 13:17:16 AGILE TESTER CPT-45810 Venipuncture Draw Fee 12:05:39 CDT CPT-36709 Venipuncture Draw Fee 12:49:12 CDT CPT-45636 Venipuncture Draw Fee 12:37:18 CDT CPT-68163 Venipuncture Draw Fee 10:57:11 CDT CPT-29390 Venipuncture Draw Fee 13:47:40 CDT CPT-96290 Venipuncture Draw Fee 10:02:17 CDT CPT-99116 TB Tubersol 17:32:32 CDT CPT-OV Office Visit 16:21:53 CDT CPT-OV Office Visit 15:49:22 CDT CPT-OV Office Visit 17:16:31 CDT CPT-OV Office Visit 10:43:31 CDT
--- OUTSIDE RECORDS SUMMARY | 2019-02-09 12:23 | XMS REPORT | Clinical Summary ---
Author Author Renaldo, Florecita Munoz Organization [facility] [employer] Address Unknown Phone Unavailable Allergies, Adverse Reactions, [...] PhD Hyperpotassemia GERD 530.81 Resolved Kylie Yokum CABLE TELEVISION INSTALLER Esophageal reflux Health maintenance exam V70.0 Resolved Adolfo Yates MD Routine general medical examination at a health care facility Anemia 285.9 Resolved Kylie Holt CABLE TELEVISION INSTALLER Anemia, unspecified Personal history of malignant neoplasm [...] Sebaceous cyst, scalp 706.2 Resolved Kylie Holt CABLE TELEVISION INSTALLER Sebaceous cyst Cervical lymphadenopathy, anterior, left 785.6 Resolv ed Kylie Holt CABLE TELEVISION INSTALLER Enlargement of lymph nodes Need for prophylactic vaccination and inoculation against in fluenza V04.81 Resolved Adam Yates MD Need for prophylactic vaccination and inoculation against influenza Preventive health care V70.0 Active Kylie Holt CABLE TELEVISION INSTALLER Routine general medical examination at a health care facility Thyroid nodule, left 241.0 Active Kylie Gonzalez PRN Nontoxic uninodular goiter Screening mammogram V76.12 Active Kylie Holt AP RN Other screening mammogram Mandy 706.2 Active Adam Yates MD Sebaceous cyst Colon cancer, ascending 153.6 Active Kelsy F aux RMA Malignant neoplasm of ascending colon ABDOMINAL PAIN, RIGHT LOWER QUADRANT ICD-789.03 Inactive Kina Joshua CABLE TELEVISION INSTALLER ADENOCARCINOMA, COLON, 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 Dick Yates MD ABDOMINAL PAIN, GENERALIZED ICD-789.07 Inactive Hope Benavidez MD PhD FEVER UNSPECIFIED ICD-780.60 Inactive Hope cohn MD PhD UNSPECIFIED VENOUS INSUFFICIENCY ICD-459.81 [place] ctive Adam Yates MD ADENOCARCINOMA, 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 Inac abdelrahman Benavidez MD PhD Hyperkalemia ICD-276.7 Inactive Hope Benavidez MD PhD GERD ICD-530.81 Inactive Kylie Holt CABLE TELEVISION INSTALLER 2015 Health maintenance exam ICD-V70.0 Inactive Adolfo Yates MD Anemia ICD-285.9 Inactive Kylie Holt CABLE TELEVISION INSTALLER 07/24 Weakness ICD-780.79 Inactive Hope Benavidez MD [...] Sebaceous cyst, scalp ICD-706.2 Inactive Tracy Holt CABLE TELEVISION INSTALLER Cervical lymphadenopathy, anterior, left ICD-785.6 Inactive Kylie Holt CABLE TELEVISION INSTALLER Need for prophylactic vaccination and inoculation against in fluenza ICD-V04.81 Inactive Adam Yates MD Medication List Medication Instructions Start Date Stop Date Generic Name NDC Status Provider Patient Instruction COQ10 100 MG ORAL CAPS 1 daily COENZYME Q10 359132183 20 Active OrlandLETY Haley Active VITAMIN D3 2000 UNIT ORAL CAPS Melaleuca-One daily CHOLECALCIFEROL 40044820115 Active Kylie Lundum CABLE TELEVISION INSTALLER Active PROBIOTIC DAILY ORAL CAPS Take one daily PROBIOTIC PRODUCT 04095475383 Active Kylie Lundum CABLE TELEVISION INSTALLER Active IRON 325 (65 FE) MG TABS 1 every other day FERR OUS SULFATE 90989096974 No Longer Active Kylie Escalonakum CABLE TELEVISION INSTALLER Active FLORANEX PACK 1 pack three times daily, for bowel health LACTOBACILLUS 71972192446 No Longer Active Kylie Lundum CABLE TELEVISION INSTALLER Active LOMOTIL 2.5-0.025 MG TABS 1 tab by mouth prn 4 DIPHENOXYLATE-ATROPINE 55733420152 No Longer Active Kylie Lundum CABLE TELEVISION INSTALLER Active MAGNESIUM GLUCONATE 250 MG TABS 1 tab tid 4 MAGNESIUM GLUCONATE 06060435007 No Longer Active Kylie Lundum CABLE TELEVISION INSTALLER Active CYANOCOBALAMIN 1000 MCG/ML INJ SOLN 1 injection every 2 weeks 20 20/01/03 CYANOCOBALAMIN 72191650557 No Longer Active Kylie Lundum CABLE TELEVISION INSTALLER Active ATENOLOL 25 MG ORAL TABS 1/2 pill by mouth daily, for headac hes, blood pressure ATENOLOL 34094410001 Active Kylie Lundum CABLE TELEVISION INSTALLER Active PROPRANOLOL HCL 80 MG TABS 1 tab tue. and thur. 04/10 PROPRANOLOL HCL 77871617463 No Longer Active Hope Benavidez MD PhD A ctive VITAMIN D3 4000 IU 1 tab 3 times daily VITAMIN D3 4000 IU No Longer Active Hope Benavidez MD PhD Active BACTRIM DS 800-160 MG TABS 1 pill by mouth twice daily, for UTI SULFAMETHOXAZOLE-TRIMETHOPRIM 35330084798 No Longer Active A attila Benavidez MD PhD Active PROLIA 60 MG/ML SOLN 1 shot every 6 months for osteoprosis DENOSUMAB 46452001871 Active Hope Benavidez MD PhD Active CALCIUM + D + K 750-500-40 MG-UNT-MCG TABS 1 tab by mouth tw ice daily CALCIUM-VITAMIN D-VITAMIN K 30530085762 Active Hope landers MD PhD Active DAILY VALUE MULTIVITAMIN TABS 1 tab by mouth twice daily MULTIPLE VITAMIN 84418547859 Active Hope Benavidez MD PhD Active FISH OIL 306 MG CAPS 1 tab by mouth three times daily OMEGA-3 FATTY ACIDS 88429133843 Active Hope Benavidez MD PhD Active LUTEIN 10 MG TABS 1 tab daily LUTEIN 36656732091 Act cash Hope Benavidez MD PhD Active TRIAMTERENE-HCTZ 37.5-25 MG TABS 1 tab by mouth daily TRIAMTERENE-HCTZ 04065053777 Active Kylie Holt CABLE TELEVISION INSTALLER Active CYCLOBENZAPRINE HCL 10 MG TABS 1 tablet by mouth three times daily as needed for headaches CYCLOBENZAPRINE HCL 86549927791 No Longe r Active Adam Yates MD Active OMEPRAZOLE 20 MG CPDR 1 tablet by mouth daily for GERD OMEPRAZOLE 73023133367 No Longer Active Adam Yates MD A ctive ZOFRAN 8 MG TABS 1 tab by mouth every 12 hours prn 201 05/16/09 ONDANSETRON HCL 97318709182 No Longer Active Adam Yates MD Active PHENADOZ 25 MG SUPP 1 every 4 hrs. PRN PROMETHA ZINE HCL 01518453591 No Longer Active Adam Yates MD Active POTASSIUM CHLORIDE 20 MEQ PACK by mouth twice a day prn POTASSIUM CHLORIDE 22891936325 No Longer Active Adam Yates MD Active PROMETHAZINE HCL 25 MG TABS 1 Q. 4 hr. PRN PROM ETHAZINE HCL 69915106765 No Longer Active Adam Yates MD Active INNOPRAN XL 120 MG [id number] Take one by mouth daily 2 PROPRANOLOL HCL SR BEADS 38943015536 No Longer Active Adam Yates MD A ctive FLAGYL 500 MG TABS 1 pill by mouth three times daily, for diarrh ea METRONIDAZOLE 53871737109 No Longer Active Hope Benavidez MD PhD Active DYAZIDE 37.5-25 MG CAPS 1 qd TRIAMTERENE-HC TZ 01138971063 No Longer Active Hope Benavidez MD PhD Active PROZAC 20 MG CAPS 1 q d FLUOXETINE HCL 93671 208180 No Longer Active Hope Benavidez MD PhD Active SIMVASTATIN 40 MG TABS 1 qd SIMVASTATIN 004 61037055 No Longer Active Adam Yates MD Active MELOXICAM 15 MG TABS 1 qd MELOXICAM 9733171 0948 No Longer Active Adam Yates MD Active IMODIUM A-D 2 MG TABS 2 onset at diarrhea and prn. LOPERAMIDE HCL 34544361196 Active Hope Benavidez MD PhD Active EXCEDRIN EXTRA STRENGTH 250-250-65 MG TABS 1-2 q6h PRN headache 201 04/16/21 [id number] 59325055061 Active Hope Benavidez MD PhD Active FLAGYL 500 MG TABS 1 qid METRONIDAZOLE 13261 889304 No Longer Active Adam Yates MD Active LEVAQUIN 750 MG TABS 1 qd LEVOFLOXACIN 5486 6676161 No Longer Active Adam Yates MD Active ADULT ASPIRIN LOW STRENGTH 81 MG TBDP 1 qd A SPIRIN 38049420331 Active Hope Benavidez MD PhD Active LEVAQUIN 750 MG TABS 1 qd LEVAQUIN 750 MG T ABS 145553 LEVOFLOXACIN Inactive FLAGYL 500 MG TABS 1 qid FLAGYL 500 MG TABS 484890 METRONIDAZOLE Inactive MELOXICAM 15 MG TABS 1 qd MELOXICAM 15 MG T ABS 707106 MELOXICAM Inactive SIMVASTATIN 40 MG TABS 1 qd SIMVASTATIN 40 MG TABS 818111 SIMVASTATIN Inactive PROZAC 20 MG CAPS 1 q d PROZAC 20 MG CAPS 31 0385 FLUOXETINE HCL Inactive DYAZIDE 37.5-25 MG CAPS 1 qd DYAZIDE 37.5 -25 MG CAPS 522945 TRIAMTERENE-HCTZ Inactive INNOPRAN XL 120 MG [id number] Take one by mouth daily 2 INNOPRAN XL 120 MG [id number] PROPRANOLOL HCL SR BEADS Inactive PROMETHAZINE HCL 25 MG TABS 1 Q. 4 hr. PRN PROMETHAZINE HCL 25 MG TABS 320653 PROMETHAZINE HCL Inactive POTASSIUM CHLORIDE 20 MEQ PACK by mouth twice a day prn POTASSIUM CHLORIDE 20 MEQ PACK 8860083 POTASSIUM CHLORIDE Inactive PHENADOZ 25 MG SUPP 1 every 4 hrs. PRN PHENADOZ 2 5 MG SUPP 288708 PROMETHAZINE HCL Inactive ZOFRAN 8 MG TABS 1 tab by mouth every 12 hours prn 201 05/16/09 ZOFRAN 8 MG TABS 009286 ONDANSETRON HCL Inactive OMEPRAZOLE 20 MG CPDR 1 tablet by mouth daily for GERD OMEPRAZOLE 20 MG CPDR 769587 OMEPRAZOLE Inactive CYCLOBENZAPRINE HCL 10 MG TABS 1 tablet by mouth three times daily as needed for headaches CYCLOBENZAPRINE HCL 10 MG TABS 545462 CYCLOBENZAPRINE HCL Inactive VITAMIN D3 4000 IU 1 tab 3 times daily VITAMIN D3 4000 IU Inactive PROPRANOLOL HCL 80 MG TABS 1 tab tue. and thur. 04/10 PROPRANOLOL HCL 80 MG TABS 734605 PROPRANOLOL HCL Inactive CYANOCOBALAMIN 1000 MCG/ML INJ SOLN 1 injection every 2 weeks 20 20/01/03 CYANOCOBALAMIN 1000 MCG/ML INJ SOLN 686762 CYANOCOBALAM IN Inactive MAGNESIUM GLUCONATE 250 MG TABS 1 tab tid 4 MAGNESIUM GLUCONATE 250 MG TABS 398509 MAGNESIUM GLUCONATE Inactive LOMOTIL 2.5-0.025 MG TABS 1 tab by mouth prn 4 LOMOTIL 2.5- 0.025 MG TABS 8925040 DIPHENOXYLATE-ATROPINE Inactive FLORANEX PACK 1 pack three times daily, for bowel health FLORANEX PACK LACTOBACILLUS Inactive IRON 325 (65 FE) MG TABS 1 every other day IRON 325 (65 FE) MG TABS 186726 FERROUS SULFATE Inactive FLAGYL 500 MG TABS 1 pill by mouth three times daily, for diarrh ea FLAGYL 500 MG TABS 201166 METRONIDAZOLE Inactive BACTRIM DS 800-160 MG TABS 1 pill by mouth twice daily, for UTI BACTRIM DS 800-160 MG TABS 141385 SULFAMETHOXAZOLE-TRIM ETHOPRIM Inactive Advance Directives Directive Description [...] 11 .0-15.0 platelet count 157 THOUSAND/UL 10*3/mm3 486-471 9578/04/20 mean platelet volume 8.9 fL 7.5-12.5 Lab Report: CBC W/DIFF, Comp. Metabolic Panel, Thyroid Stimulating Hormo ... - Chemistry sodium, serum 139 mmol/L 340-707 3368/10/20 carbon dioxide, venous blood 32.2 mmol/L 21.0-32 [...] - Chemi stry cholesterol, serum 200 mg/dL 063-306 4959/11/22 triglyceride, serum, fasting 129 mg/dL 30-200 HDL cholesterol, serum 56 mg/dL 32-96 LDL cholesterol, serum 118 mg/dL 0-130 calcium, serum 9.0 mg/dL 8.5-10.1 Lab Report: MicroAlb Random w/creat/6517 - Urinalysis microalbumin/total urine volume 8 mg/L Units converted. See lab report for original value. microalbumin/creatinine ratio, urine 15 MCG/MG CREAT mg/L <30 Encounters Code Encounter Date Provider Facility CPT-74813 Level 3 Est. Patient 16:26:30 CDT Kina blackmon [facility] CPT-81942 Level 3 New Patient 16:22:01 [employer]UN[place] WOM[place] Adam Yates MD [facility] CPT-47771 Level 4 Est. Patient 17:00:48 CDT Kylie Lund [facility] CPT-67463 Level 3 Est. Patient 13:15:54 CDT Kylie Lund [facility] CPT-39705 Level 3 Est. Patient 09:10:11 CDT [facility]47 Level 4 Est. Patient 12:08:30 [employer] WOM[place] Hope cohn MD PhD [facility] CPT-20005 Level 4 Est. Patient 19:08:42 [employer] WOM[place] Hope cohn MD PhD [facility] CPT-65430 Level 4 Est. Patient 20:04:51 CDT Hope cohn MD PhD [facility] CPT-24804 Level 3 New Patient 01:46:11 [employer] WOM[place] Hope landers MD PhD [facility] Procedures Code Procedure Name Date Entry Date Standard Desc ription CPT-J0897 Prolia 60 mg 14:14:16 [employer]OM[employer] CPT-84952 Abx/Therapy Injection 14:14:15 [employer]OM[employer] CPT-21496 Lipid - LAB USE ONLY 10:01:52 [employer]UN[employer] WOMAN 2 CPT-41458 Calcium - LAB USE ONLY 10:01:51 [employer] WOM[place] CPT-61208 Venipuncture Draw Fee 10:01:51 [employer]OM[place] CPT-LR Lesion Removal 16:22:01 [employer] [place] CPT-76203 TSH - LAB USE ONLY 14:26:02 CDT CPT-69127 CMP - LAB USE ONLY 14:26:01 CDT CPT-24659 CBC with Diff - LAB USE ONLY 14:26:01 CDT 2 CPT-40183 Venipuncture Draw Fee 14:26:01 CDT CPT-10454 First Vx - Ix admin for Medicare patients 13:27:08 CDT CPT-18567 Fluzone High-Dose Intramuscular Suspension 11/26 13:27:08 CDT CPT-G0438 Initial Annual Wellness Exam 14:19:57 CD T CPT-G0009 Administration of Pneumococcal Vaccine 9 11:36:25 CDT CPT-65429 Prevnar 13 Intramuscular Suspension 1 1:36:25 CDT CPT-46792 Prevnar 13 Intramuscular Suspension 1 0:40:58 CDT CPT-J0897 Prolia 60 mg 10:37:16 CDT CPT-35272 Abx/Therapy Injection 10:37:16 CDT CPT-J0897 Prolia 60 mg 16:09:34 [employer]UNT WOMAN CPT-J0897 Prolia 60 mg 11:10:35 [employer]UN[employer] WOMAN CPT-27568 Abx/Therapy Injection 11:10:35 STUNT WOMAN CPT-000 Give Appropriate Flu Vaccine 17:01:15 STUNT WOMAN 2 CPT-96386 Fluzone High Dose (65+) 15:03:08 [employer] WOM[place] 02/15 CPT-38032 Immunization Single Admin 15:03:08 STUNT WOMAN 2014 CPT-OV Office Visit 15:58:06 CDT CPT-J0897 Prolia 60 mg 08:45:38 CDT CPT-59467 Abx/Therapy Injection 08:45:38 CDT CPT-J3420 Vitamin B12 1000mcg (Cyanocobalamin) 09:26:20 STUNT WOMAN CPT-50474 Abx/Therapy Injection 09:26:20 STUNT WOMAN CPT-J3420 Vitamin B12 1000mcg (Cyanocobalamin) 09:44:40 STUNT WOMAN CPT-10076 Abx/Therapy Injection 09:44:40 STUNT WOMAN CPT-J3420 Vitamin B12 1000mcg (Cyanocobalamin) 09:15:54 STUNT WOMAN CPT-09948 Abx/Therapy Injection 09:15:54 STUNT WOMAN CPT-J3420 Vitamin B12 1000mcg (Cyanocobalamin) 09:46:44 STUNT WOMAN CPT-72406 Abx/Therapy Injection 09:46:44 STUNT WOMAN CPT-J3420 Vitamin B12 1000mcg (Cyanocobalamin) 09:47:34 STUNT WOMAN CPT-11908 Abx/Therapy Injection 09:47:34 STUNT WOMAN CPT-J3420 Vitamin B12 1000mcg (Cyanocobalamin) 14:35:50 STUNT WOMAN CPT-J3420 Vitamin B12 1000mcg (Cyanocobalamin) 09:25:05 STUNT WOMAN CPT-38205 Abx/Therapy Injection 09:25:05 STUNT WOMAN CPT-G0008 Administration of Influenza Virus Vaccine 13:36:47 CDT CPT-46020 Fluzone High-Dose Intramuscular Suspension 11/15 13:36:47 CDT CPT-J0897 Prolia 60 mg 08:50:41 CDT CPT-06436 Abx/Therapy Injection 08:50:41 CDT CPT-42512 Bone Density 12:06:12 CDT CPT-32952 Bone Density 08:54:40 CDT CPT-OV Office Visit 15:37:02 CDT CPT-12336 Postop F/U Visit 15:47:49 CDT CPT-05158 Postop F/U Visit 15:21:02 CDT CPT-TCMH Transitional Care Mgmt-High 07:52:27 CDT 20 20/06/01 CPT-12269 Venipuncture Draw Fee 13:51:18 CDT CPT-71709 Venipuncture Draw Fee 10:14:55 STUNT WOMAN CPT-15073 Venipuncture Draw Fee 13:39:45 STUNT WOMAN CPT-OV Office Visit 15:11:22 STUNT WOMAN CPT-47826 Venipuncture Draw Fee 09:20:49 STUNT WOMAN CPT-32592 Venipuncture Draw Fee 16:52:15 STUNT WOMAN CPT-93069 Venipuncture Draw Fee 10:37:24 STUNT WOMAN CPT-11404 Venipuncture Draw Fee 08:21:21 STUNT WOMAN CPT-52090 Venipuncture Draw Fee 08:30:20 STUNT WOMAN CPT-23702 Venipuncture Draw Fee 14:53:21 STUNT WOMAN CPT-74341 Venipuncture Draw Fee 09:40:56 STUNT WOMAN CPT-80170 Venipuncture Draw Fee 10:30:47 STUNT WOMAN CPT-19163 Venipuncture Draw Fee 10:46:17 STUNT WOMAN CPT-84849 Venipuncture Draw Fee 11:12:45 STUNT WOMAN CPT-87587 Venipuncture Draw Fee 09:53:33 STUNT WOMAN CPT-04175 Venipuncture Draw Fee 11:53:51 STUNT WOMAN CPT-47541 Venipuncture Draw Fee 10:33:50 STUNT WOMAN CPT-01964 Venipuncture Draw Fee 10:05:01 STUNT WOMAN CPT-99048 Venipuncture Draw Fee 14:32:52 STUNT WOMAN CPT-48464 Venipuncture Draw Fee 09:46:13 STUNT WOMAN CPT-32064 Venipuncture Draw Fee 11:34:27 [employer]UNT WOMAN CPT-75861 Venipuncture Draw Fee 13:17:16 STUNT WOMAN CPT-67636 Venipuncture Draw Fee 12:05:39 CDT CPT-39797 Venipuncture Draw Fee 12:49:12 CDT CPT-70418 Venipuncture Draw Fee 12:37:18 CDT CPT-71050 Venipuncture Draw Fee 10:57:11 CDT CPT-53439 Venipuncture Draw Fee 13:47:40 CDT CPT-47052 Venipuncture Draw Fee 10:02:17 CDT CPT-00848 TB Tubersol 17:32:32 CDT CPT-OV Office Visit 16:21:53 CDT CPT-OV Office Visit 15:49:22 CDT CPT-OV Office Visit 17:16:31 CDT CPT-OV Office Visit 10:43:31 CDT
--- OUTSIDE RECORDS SUMMARY | 2019-02-09 12:24 | XMS REPORT | Clinical Summary ---
Author Author Admin, Florecita Munoz Organization [facility] Tang Song Address Unknown Phone Unavailable Allergies, Adverse Reactions, [...] Sebaceous cyst, scalp 706.2 Resolved Kylie Yogabbium TRANSVERSE ABDOMINAL MUSCLE SURGEON Sebaceous cyst Cervical lymphadenopathy, anterior, left 785.6 Resolv ed Kylie Yokum TRANSVERSE ABDOMINAL MUSCLE SURGEON Enlargement of lymph nodes Need for prophylactic vaccination and inoculation against in fluenza V04.81 Resolved Adam Yates MD Need for prophylactic vaccination and inoculation against influenza Preventive health care V70.0 Resolved Kylie deras TRANSVERSE ABDOMINAL MUSCLE SURGEON Routine general medical examination at a health care facility Thyroid nodule, left 241.0 Active Kylie Gonzalez PRN Nontoxic uninodular goiter Screening mammogram V76.12 Active Kylie MEEK RN Other screening mammogram Mandy 706.2 Resolved Kylie Yokum TRANSVERSE ABDOMINAL MUSCLE SURGEON Sebaceous cyst Colon cancer, ascending 153.6 Resolved Kylie Yok um TRANSVERSE ABDOMINAL MUSCLE SURGEON Malignant neoplasm of ascending colon Foot pain, left 729.5 Active Sulema Schwarz CHIEF NURSE ANESTHETIST Pain in limb Splinter 919.6 Resolved Kylie Yokum TRANSVERSE ABDOMINAL MUSCLE SURGEON Superficial foreign body (splinter) of other, multiple, and unspecified sites, without major open wound and without mention of infection Rash 782.1 Resolved Kylie Yokum TRANSVERSE ABDOMINAL MUSCLE SURGEON Rash and other nonspecific skin eruption Cyst 706.2 Active Kylie Yokum TRANSVERSE ABDOMINAL MUSCLE SURGEON S ebaceous cyst Body Mass Index 23.0-23.9 Adult Active Kylie Yogabbium TRANSVERSE ABDOMINAL MUSCLE SURGEON Body Mass Index between 19-24, adult Unspecified fall, initial encounter E888.9 Active Kylie Holt TRANSVERSE ABDOMINAL MUSCLE SURGEON Unspecified fall Eye pain, left 379.91 Active Kylie Yanet TRANSVERSE ABDOMINAL MUSCLE SURGEON Pain in or around eye ABDOMINAL PAIN, RIGHT LOWER QUADRANT ICD-789.03 Inactive Kina Joshua TRANSVERSE ABDOMINAL MUSCLE SURGEON ADENOCARCINOMA, COLON, 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 Dick Yates MD ABDOMINAL PAIN, GENERALIZED ICD-789.07 Inactive Hope Benavidez MD PhD FEVER UNSPECIFIED ICD-780.60 Inactive Hope cohn MD PhD UNSPECIFIED VENOUS INSUFFICIENCY ICD-459.81 [place] ctive Adam Yates MD ADENOCARCINOMA, 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 Inac tive Hope Benavidez MD PhD Hyperkalemia ICD-276.7 Inactive Hope Benavidez MD PhD GERD ICD-530.81 Inactive Kylie Holt TRANSVERSE ABDOMINAL MUSCLE SURGEON 2015 Health maintenance exam ICD-V70.0 Bam Yates MD Anemia ICD-285.9 Inactive Kylie Holt TRANSVERSE ABDOMINAL MUSCLE SURGEON 07/24 Hypomagnesemia ICD-275.2 Inactive Kylie Yokum TRANSVERSE ABDOMINAL MUSCLE SURGEON Weakness ICD-780.79 Inactive Hope Benavidez MD P [...] cyst, scalp ICD-706.2 Inactive Tracy hi Yokum TRANSVERSE ABDOMINAL MUSCLE SURGEON Cervical lymphadenopathy, anterior, left ICD-785.6 Inactive Kylie Yokum TRANSVERSE ABDOMINAL MUSCLE SURGEON Need for prophylactic vaccination and inoculation against in fluenza ICD-V04.81 Inactive Adam Yates MD Preventive health care ICD-V70.0 Inactive Ka thi Yokum TRANSVERSE ABDOMINAL MUSCLE SURGEON Mandy ICD-706.2 Inactive Kylie Yokum TRANSVERSE ABDOMINAL MUSCLE SURGEON 07/20 Colon cancer, ascending ICD-153.6 Inactive K athi Yokum TRANSVERSE ABDOMINAL MUSCLE SURGEON Splinter ICD-919.6 Inactive Kylie Yokum TRANSVERSE ABDOMINAL MUSCLE SURGEON 2017 Rash ICD-782.1 Inactive Kylie Yokum TRANSVERSE ABDOMINAL MUSCLE SURGEON 07/25 Medication List Medication Instructions Start Date Stop Date Generic Name NDC Status Provider Patient Instruction IMODIUM A-D 2 MG ORAL TABLET 1 tablet twice a day LOPERAMIDE HCL 32281110771 Active Kylie Yokum TRANSVERSE ABDOMINAL MUSCLE SURGEON Active VOLTAREN 1 % TRANSDERMAL GEL apply q 6-8 hour to left arm as needed for pain DICLOFENAC SODIUM 16264967536 Active Kylie Yokum TRANSVERSE ABDOMINAL MUSCLE SURGEON Active COQ10 100 MG ORAL CAPSULE 1 daily COENZYME Q10 665936 69293 Active LETY Nation Active VITAMIN D3 2000 UNIT ORAL CAPSULE Melaleuca-One daily CHOLECALCIFEROL 84621308452 Active Kylie Holt APRN Active PROBIOTIC DAILY ORAL CAPSULE Take one daily PROBIO TIC PRODUCT 99871414849 Active Kylie Lundum TRANSVERSE ABDOMINAL MUSCLE SURGEON Active IRON 325 (65 Fe) MG ORAL TABLET 1 every other day FERROUS SULFATE 33635609411 No Longer Active Kylie Holt TRANSVERSE ABDOMINAL MUSCLE SURGEON Active FLORANEX ORAL PACKET 1 pack three times daily, for bowel health LACTOBACILLUS 13428295462 No Longer Active Kylie Holt APRN Active LOMOTIL 2.5-0.025 MG ORAL TABLET 1 tab by mouth prn 23/10/23 DIPHENOXYLATE-ATROPINE 75835768360 No Longer Active Kylie Lundum TRANSVERSE ABDOMINAL MUSCLE SURGEON Active MAGNESIUM GLUCONATE 250 MG ORAL TABLET 1 tab tid 23/10/23 MAGNESIUM GLUCONATE 72316202746 No Longer Active Kylie Holt APRN Active CYANOCOBALAMIN 1000 MCG/ML INJECTION SOLUTION 1 injection ev ruben 2 weeks CYANOCOBALAMIN 07413793469 No Longer Active Kylie Lund um TRANSVERSE ABDOMINAL MUSCLE SURGEON Active ATENOLOL 25 MG ORAL TABLET 1/2 pill by mouth daily, fo r headaches, blood pressure ATENOLOL 69789280226 Active Kylie Lundum TRANSVERSE ABDOMINAL MUSCLE SURGEON Active PROPRANOLOL HCL 80 MG ORAL TABLET 1 tab tue. and thur. PROPRANOLOL HCL 80900631358 No Longer Active Hope Benavidez MD PhD A ctive VITAMIN D3 4000 IU 1 tab 3 times daily VITAMIN D3 4000 IU No Longer Active Hope Benavidez MD PhD Active BACTRIM DS 800-160 MG ORAL TABLET 1 pill by mouth twice claudio y, for UTI SULFAMETHOXAZOLE-TRIMETHOPRIM 64421528642 No Longer Active Hope Benavidez MD PhD Active PROLIA 60 MG/ML SUBCUTANEOUS SOLUTION 1 shot every 6 months for osteoprosis DENOSUMAB 92962175998 Active Hope Benavidez MD PhD Active CALCIUM + D + K 750-500-40 MG-UNT-MCG ORAL TABLET 1 tab by m out twice daily CALCIUM-VITAMIN D-VITAMIN K 87187681263 Active Hope valdez MD PhD Active DAILY VALUE MULTIVITAMIN ORAL TABLET 1 tab by mouth twice daily 201 05/16/14 MULTIPLE VITAMIN 84749266144 Active Hope Benavidez MD PhD Acti ve FISH OIL 306 MG CAPS 1 tab by mouth three times daily OMEGA-3 FATTY ACIDS 86321658096 Active Hpoe Benavidez MD PhD Active LUTEIN 10 MG ORAL TABLET 1 tab daily LUTEIN 68677346 408 Active Hope Benavidez MD PhD Active TRIAMTERENE-HCTZ 37.5-25 MG ORAL TABLET 1 tab by mouth daily 10/22 TRIAMTERENE-HCTZ 33840783221 Active Kylie Yanet REYES Active CYCLOBENZAPRINE HCL 10 MG ORAL TABLET 1 tablet by mout h three times daily as needed for headaches CYCLOBENZAPRINE HCL 24771815591 No Longer Active Adam Yates MD Active OMEPRAZOLE 20 MG ORAL CAPSULE DELAYED RELEASE 1 tablet by [facility] daily for GERD OMEPRAZOLE 67286749489 No Longer Active Adam Yates MD Active ZOFRAN 8 MG ORAL TABLET 1 tab by mouth every 12 hours prn 4 ONDANSETRON HCL 19238866256 No Longer Active Adam Yates MD Active PHENADOZ 25 MG RECTAL SUPPOSITORY 1 every 4 hrs. PRN 2 PROMETHAZINE HCL 66066861599 No Longer Active Adam Yates MD A ctive POTASSIUM CHLORIDE 20 MEQ ORAL PACKET by mouth twice a day prn 2 POTASSIUM CHLORIDE 25626746899 No Longer Active Adam Carpenter MD Active PROMETHAZINE HCL 25 MG ORAL TABLET 1 Q. 4 hr. PRN PROMETHAZINE HCL 49697278486 No Longer Active Adam Yates MD Active INNOPRAN XL 120 MG ORAL CAPSULE EXTENDED RELEASE 24 HO UR Take one by mouth daily PROPRANOLOL HCL SR BEADS 63625360279 No Longer Active Adam Yates MD Active FLAGYL 500 MG ORAL TABLET 1 pill by mouth three times daily, for diarrhea METRONIDAZOLE 15844536896 No Longer Active Hope landers MD PhD Active DYAZIDE 37.5-25 MG ORAL CAPSULE 1 qd TRIA MTERENE-HCTZ 92811128146 No Longer Active Hope Benavidez MD PhD Active PROZAC 20 MG ORAL CAPSULE 1 q d FLUOXETINE HCL 67895399944 No Longer Active Hope Benavidez MD PhD Active SIMVASTATIN 40 MG ORAL TABLET 1 qd SIMVAS TATIN 19068060070 No Longer Active Adam Yates MD Active MELOXICAM 15 MG ORAL TABLET 1 qd MELOXICAM 23146687860 No Longer Active Adam Yates MD Active EXCEDRIN EXTRA STRENGTH 250-250-65 MG ORAL TABLET 1-2 q6h FL N headache [id number] 84007713343 Active Hope Benavidez MD PhD Active FLAGYL 500 MG ORAL TABLET 1 qid METRONIDAZOL E 67137375393 No Longer Active Adam Yates MD Active LEVAQUIN 750 MG ORAL TABLET 1 qd LEVOFLOXAC IN 48573886128 No Longer Active Adam Yates MD Active ADULT ASPIRIN LOW STRENGTH 81 MG ORAL TABLET DISINTEGRATING 1 qd ASPIRIN 35318964265 Active Hope Benavidez MD PhD Active LEVAQUIN 750 MG ORAL TABLET 1 qd LEVAQUIN 750 MG ORAL TABLET 781659 LEVOFLOXACIN Inactive FLAGYL 500 MG ORAL TABLET 1 qid FLAGYL 500 MG ORAL TABLET 528880 METRONIDAZOLE Inactive MELOXICAM 15 MG ORAL TABLET 1 qd MELOXICAM 15 MG ORAL TABLET 037410 MELOXICAM Inactive SIMVASTATIN 40 MG ORAL TABLET 1 qd SIMVASTATIN 40 MG ORAL TABLET 158072 SIMVASTATIN Inactive PROZAC 20 MG ORAL CAPSULE 1 q d PROZAC 20 MG ORAL CAPSULE 678104 FLUOXETINE HCL Inactive DYAZIDE 37.5-25 MG ORAL CAPSULE 1 qd 5 DYAZIDE 37.5-25 MG ORAL CAPSULE 898894 TRIAMTERENE-HCTZ Inactive INNOPRAN XL 120 MG ORAL CAPSULE EXTENDED RELEASE 24 HO UR Take one by mouth daily INNOPRAN XL 120 MG ORAL CAPSULE EXTENDED RELEASE 24 HOUR PROPRANOLOL HCL SR BEADS Inactive PROMETHAZINE HCL 25 MG ORAL TABLET 1 Q. 4 hr. PRN 2013 PROMETHAZINE HCL 25 MG ORAL TABLET 043220 PROMETHAZINE HCL Inactive POTASSIUM CHLORIDE 20 MEQ ORAL PACKET by mouth twice a day prn 2 POTASSIUM CHLORIDE 20 MEQ ORAL PACKET 2299711 POTASSIUM CHLORIDE Inactive PHENADOZ 25 MG RECTAL SUPPOSITORY 1 every 4 hrs. PRN 2 PHENADOZ 25 MG RECTAL SUPPOSITORY 786075 PROMETHAZINE HCL Inactive ZOFRAN 8 MG ORAL TABLET 1 tab by mouth every 12 hours prn 4 ZOFRAN 8 MG ORAL TABLET 406765 ONDANSETRON HCL Inactive OMEPRAZOLE 20 MG ORAL CAPSULE DELAYED RELEASE 1 tablet by mo uth daily for GERD OMEPRAZOLE 20 MG ORAL CAPSULE DELAYED RELEASE 19 8051 OMEPRAZOLE Inactive CYCLOBENZAPRINE HCL 10 MG ORAL TABLET 1 tablet by mout h three times daily as needed for headaches CYCLOBENZAPRINE HCL 10 MG ORAL TABLET 023188 CYCLOBENZAPRINE HCL Inactive VITAMIN D3 4000 IU 1 tab 3 times daily VITAMIN D3 4000 IU Inactive PROPRANOLOL HCL 80 MG ORAL TABLET 1 tab tue. and thur. PROPRANOLOL HCL 80 MG ORAL TABLET 153543 PROPRANOLOL HCL Inacti ve CYANOCOBALAMIN 1000 MCG/ML INJECTION SOLUTION 1 injection ev ruben 2 weeks CYANOCOBALAMIN 1000 MCG/ML INJECTION SOLUTION 30 8694 CYANOCOBALAMIN Inactive MAGNESIUM GLUCONATE 250 MG ORAL TABLET 1 tab tid 20 23/10/23 MAGNESIUM GLUCONATE 250 MG ORAL TABLET 668805 MAGNESIUM GLUCONATE Inactive LOMOTIL 2.5-0.025 MG ORAL TABLET 1 tab by mouth prn 20 23/10/23 LOMOTIL 2.5-0.025 MG ORAL TABLET 9222566 DIPHENOXYLATE-ATROPINE Inac tive FLORANEX ORAL PACKET 1 pack three times daily, for bowel health FLORANEX ORAL PACKET 10611724491 LACTOBACILLUS Inactive IRON 325 (65 Fe) MG ORAL TABLET 1 every other day 2015 IRON 325 (65 Fe) MG ORAL TABLET 973355 FERROUS SULFATE Inactive FLAGYL 500 MG ORAL TABLET 1 pill by mouth three times daily, for diarrhea FLAGYL 500 MG ORAL TABLET 411611 METRONIDAZOLE I nactive BACTRIM DS 800-160 MG ORAL TABLET 1 pill by mouth twice claudio y, for UTI BACTRIM DS 800-160 MG ORAL TABLET 078493 SULFAMETHOXAZOLE-TRIMETHOPRIM Inactive Advance Directives Directive Description Start Date PERMISSION TO SHARE LIVING WILL DO NOT RESUSCITATE/COMFORT MEASURES ONLY Immunizations Vaccine Administration Date Value Standard Stvean cription influenza immunization (Flu Vax) has been [...] ... - Chemistry sodium, serum 138 mmol/L 639-237 9489/12/15 potassium, serum 4.0 mmol/L 3.5-5.2 chloride, serum [...] - Chem istry sodium, serum 142 mmol/L 482-612 3571/04/19 carbon dioxide, venous blood 30.2 mmol/L 21.0-32 [...] 0.00-1.00 Encounters Code Encounter Date Provider Facility CPT-67434 Level 2 Est. Patient 14:58:26 CDT Kylie boyd [facility] CPT-86571 Level 3 Est. Patient 08:15:24 DIGITAL STRATEGY DIRECTOR Kylie Lund [facility] CPT-94062 Level 2 Est. Patient 14:27:16 DIGITAL STRATEGY DIRECTOR Kylie boyd [facility] [place] CPT-10359 Level 3 Est. Patient 17:54:48 CDT Kylie boyd [facility] CPT-32358 Level 3 Est. Patient 16:26:30 CDT Kina blackmon [facility] CPT-69262 Level 3 New Patient 16:22:01 DIGITAL STRATEGY DIRECTOR Adam Yates MD [facility] CPT-81885 Level 4 Est. Patient 17:00:48 CDT Kylie boyd [facility] [place] CPT-66230 Level 3 Est. Patient 13:15:54 CDT Kylie boyd [facility] CPT-63191 Level 3 Est. Patient 09:10:11 CDT Kylie boyd [facility] CPT-45060 Level 4 Est. Patient 12:08:30 DIGITAL STRATEGY DIRECTOR Hope cohn MD PhD [facility] CPT-31381 Level 4 Est. Patient 19:08:42 DIGITAL STRATEGY DIRECTOR Hope cohn MD PhD [facility] CPT-28403 Level 4 Est. Patient 20:04:51 CDT Hope cohn MD [facility] CPT-62406 Level 3 New Patient 01:46:11 DIGITAL STRATEGY DIRECTOR Hope landers MD PhD [facility] Procedures Code Procedure Name Date Entry Date Standard Desc ription CPT-89476 Venipuncture Draw Fee 10:59:04 CDT CPT-84188 CMP - LAB USE ONLY 10:59:04 CDT CPT-56368 CBC with Diff - LAB USE ONLY 10:59:03 CDT 2 CPT-J0897 Prolia 60 mg 15:46:54 DIGITAL STRATEGY DIRECTOR CPT-41390 Abx/Therapy Injection 15:46:54 DIGITAL STRATEGY DIRECTOR CPT-94616 Microalbumin - LAB USE ONLY 09:41:32 DIGITAL STRATEGY DIRECTOR 20 23/01/15 CPT-34526 Free T4 - LAB USE ONLY 09:41:32 DIGITAL STRATEGY DIRECTOR CPT-37819 TSH - LAB USE ONLY 09:41:32 DIGITAL STRATEGY DIRECTOR CPT-73561 BMP - LAB USE ONLY 09:41:32 DIGITAL STRATEGY DIRECTOR CPT-68659 Venipuncture Draw Fee 09:41:32 DIGITAL STRATEGY DIRECTOR CPT-71693 First Vx - Ix admin for Medicare patients 11:19:30 CDT CPT-84366 Fluzone High-Dose Intramuscular Suspension 12/07 11:19:30 CDT CPT-J0897 Prolia 60 mg 14:55:42 CDT CPT-97863 Abx/Therapy Injection 14:55:42 CDT CPT-45628 Bone Density - XRAY USE ONLY 10:27:12 CDT 2 CPT-G0439 Subsequent Annual Wellness Exam 17:54:53 CDT CPT-14862 Foot, left, comp min 3V - XRAY USE ONLY 12:22:49 CDT CPT-G0009 Administration of Pneumococcal Vaccine 3 12:18:00 CDT CPT-31386 Pneumovax 23 Injection Injectable 25 MCG /0.5ML 12:18:00 CDT CPT-J0897 Prolia 60 mg 14:14:16 DIGITAL STRATEGY DIRECTOR CPT-91760 Abx/Therapy Injection 14:14:15 DIGITAL STRATEGY DIRECTOR CPT-52996 Lipid - LAB USE ONLY 10:01:52 DIGITAL STRATEGY DIRECTOR 2 CPT-70460 Calcium - LAB USE ONLY 10:01:51 DIGITAL STRATEGY DIRECTOR CPT-80878 Venipuncture Draw Fee 10:01:51 DIGITAL STRATEGY DIRECTOR CPT-LR Lesion Removal 16:22:01 DIGITAL STRATEGY DIRECTOR CPT-60491 TSH - LAB USE ONLY 14:26:02 CDT CPT-75790 CMP - LAB USE ONLY 14:26:01 CDT CPT-00242 CBC with Diff - LAB USE ONLY 14:26:01 CDT 2 CPT-80543 Venipuncture Draw Fee 14:26:01 CDT CPT-02201 First Vx - Ix admin for Medicare patients 13:27:08 CDT CPT-44381 Fluzone High-Dose Intramuscular Suspension 11/26 13:27:08 CDT CPT-G0438 Initial Annual Wellness Exam 14:19:57 CD T CPT-G0009 Administration of Pneumococcal Vaccine 9 11:36:25 CDT CPT-76217 Prevnar 13 Intramuscular Suspension 1 1:36:25 CDT CPT-06462 Prevnar 13 Intramuscular Suspension 1 0:40:58 CDT CPT-J0897 Prolia 60 mg 10:37:16 CDT CPT-63138 Abx/Therapy Injection 10:37:16 CDT CPT-J0897 Prolia 60 mg 16:09:34 DIGITAL STRATEGY DIRECTOR CPT-J0897 Prolia 60 mg 11:10:35 DIGITAL STRATEGY DIRECTOR CPT-31650 Abx/Therapy Injection 11:10:35 DIGITAL STRATEGY DIRECTOR CPT-000 Give Appropriate Flu Vaccine 17:01:15 DIGITAL STRATEGY DIRECTOR 2 CPT-05275 Fluzone High Dose (65+) 15:03:08 DIGITAL STRATEGY DIRECTOR 02/15 CPT-64406 Immunization Single Admin 15:03:08 DIGITAL STRATEGY DIRECTOR 2014 CPT-OV Office Visit 15:58:06 CDT CPT-J0897 Prolia 60 mg 08:45:38 CDT CPT-87633 Abx/Therapy Injection 08:45:38 CDT CPT-J3420 Vitamin B12 1000mcg (Cyanocobalamin) 09:26:20 DIGITAL STRATEGY DIRECTOR CPT-93837 Abx/Therapy Injection 09:26:20 DIGITAL STRATEGY DIRECTOR CPT-J3420 Vitamin B12 1000mcg (Cyanocobalamin) 09:44:40 DIGITAL STRATEGY DIRECTOR CPT-58720 Abx/Therapy Injection 09:44:40 DIGITAL STRATEGY DIRECTOR CPT-J3420 Vitamin B12 1000mcg (Cyanocobalamin) 09:15:54 DIGITAL STRATEGY DIRECTOR CPT-09540 Abx/Therapy Injection 09:15:54 DIGITAL STRATEGY DIRECTOR CPT-J3420 Vitamin B12 1000mcg (Cyanocobalamin) 09:46:44 DIGITAL STRATEGY DIRECTOR CPT-17076 Abx/Therapy Injection 09:46:44 DIGITAL STRATEGY DIRECTOR CPT-J3420 Vitamin B12 1000mcg (Cyanocobalamin) 09:47:34 DIGITAL STRATEGY DIRECTOR CPT-86228 Abx/Therapy Injection 09:47:34 DIGITAL STRATEGY DIRECTOR CPT-J3420 Vitamin B12 1000mcg (Cyanocobalamin) 14:35:50 DIGITAL STRATEGY DIRECTOR CPT-J3420 Vitamin B12 1000mcg (Cyanocobalamin) 09:25:05 DIGITAL STRATEGY DIRECTOR CPT-69117 Abx/Therapy Injection 09:25:05 DIGITAL STRATEGY DIRECTOR CPT-G0008 Administration of Influenza Virus Vaccine 13:36:47 CDT CPT-27682 Fluzone High-Dose Intramuscular Suspension 11/15 13:36:47 CDT CPT-J0897 Prolia 60 mg 08:50:41 CDT CPT-74925 Abx/Therapy Injection 08:50:41 CDT CPT-05878 Bone Density 12:06:12 CDT CPT-91247 Bone Density 08:54:40 CDT CPT-OV Office Visit 15:37:02 CDT CPT-64569 Postop F/U Visit 15:47:49 CDT CPT-72010 Postop F/U Visit 15:21:02 CDT CPT-TCMH Transitional Care Mgmt-High 07:52:27 CDT 20 20/06/01 CPT-63342 Venipuncture Draw Fee 13:51:18 CDT CPT-92402 Venipuncture Draw Fee 10:14:55 DIGITAL STRATEGY DIRECTOR CPT-09162 Venipuncture Draw Fee 13:39:45 DIGITAL STRATEGY DIRECTOR CPT-OV Office Visit 15:11:22 DIGITAL STRATEGY DIRECTOR CPT-90863 Venipuncture Draw Fee 09:20:49 DIGITAL STRATEGY DIRECTOR CPT-87833 Venipuncture Draw Fee 16:52:15 DIGITAL STRATEGY DIRECTOR CPT-14462 Venipuncture Draw Fee 10:37:24 DIGITAL STRATEGY DIRECTOR CPT-01357 Venipuncture Draw Fee 08:21:21 DIGITAL STRATEGY DIRECTOR CPT-63478 Venipuncture Draw Fee 08:30:20 DIGITAL STRATEGY DIRECTOR CPT-46688 Venipuncture Draw Fee 14:53:21 DIGITAL STRATEGY DIRECTOR CPT-63738 Venipuncture Draw Fee 09:40:56 DIGITAL STRATEGY DIRECTOR CPT-08943 Venipuncture Draw Fee 10:30:47 DIGITAL STRATEGY DIRECTOR CPT-80176 Venipuncture Draw Fee 10:46:17 DIGITAL STRATEGY DIRECTOR CPT-40735 Venipuncture Draw Fee 11:12:45 DIGITAL STRATEGY DIRECTOR CPT-59987 Venipuncture Draw Fee 09:53:33 DIGITAL STRATEGY DIRECTOR CPT-51945 Venipuncture Draw Fee 11:53:51 DIGITAL STRATEGY DIRECTOR CPT-10624 Venipuncture Draw Fee 10:33:50 DIGITAL STRATEGY DIRECTOR CPT-63336 Venipuncture Draw Fee 10:05:01 DIGITAL STRATEGY DIRECTOR CPT-40540 Venipuncture Draw Fee 14:32:52 DIGITAL STRATEGY DIRECTOR CPT-60643 Venipuncture Draw Fee 09:46:13 DIGITAL STRATEGY DIRECTOR CPT-85018 Venipuncture Draw Fee 11:34:27 DIGITAL STRATEGY DIRECTOR CPT-64708 Venipuncture Draw Fee 13:17:16 DIGITAL STRATEGY DIRECTOR CPT-13490 Venipuncture Draw Fee 12:05:39 CDT CPT-38067 Venipuncture Draw Fee 12:49:12 CDT CPT-24331 Venipuncture Draw Fee 12:37:18 CDT CPT-30308 Venipuncture Draw Fee 10:57:11 CDT CPT-06516 Venipuncture Draw Fee 13:47:40 CDT CPT-26255 Venipuncture Draw Fee 10:02:17 CDT CPT-12752 TB Tubersol 17:32:32 CDT CPT-OV Office Visit 16:21:53 CDT CPT-OV Office Visit 15:49:22 CDT CPT-OV Office Visit 17:16:31 CDT CPT-OV Office Visit 10:43:31 CDT
--- OUTSIDE RECORDS SUMMARY | 2019-02-09 12:24 | XMS REPORT | Clinical Summary ---
Author Author Admin, Florecita Munoz Organization [facility] [employer] Address Unknown Phone Unavailable Allergies, Adverse Reactions, [...] Sebaceous cyst, scalp 706.2 Resolved Kylie Holt MEDIA DEVELOPER Sebaceous cyst Cervical lymphadenopathy, anterior, left 785.6 Resolv ed Kylie Holt MEDIA DEVELOPER Enlargement of lymph nodes Need for prophylactic vaccination and inoculation against in fluenza V04.81 Resolved Adam Yates MD Need for prophylactic vaccination and inoculation against influenza Preventive health care V70.0 Active Kylie Holt MEDIA DEVELOPER Routine general medical examination at a health care facility Thyroid nodule, left 241.0 Active Kylie Holt A PRN Nontoxic uninodular goiter Screening mammogram V76.12 Active Kylie Holt AP RN Other screening mammogram Mandy 706.2 Active Adam Yates MD Sebaceous cyst ABDOMINAL PAIN, RIGHT LOWER QUADRANT ICD-789.03 Inactive Kina Joshua MEDIA DEVELOPER ADENOCARCINOMA, COLON, 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 Dick Yates MD ABDOMINAL PAIN, GENERALIZED ICD-789.07 Inactive Hope Benavidez MD PhD FEVER UNSPECIFIED ICD-780.60 Inactive Hope cohn MD PhD UNSPECIFIED VENOUS INSUFFICIENCY ICD-459.81 Elda ctive Adam Yates MD ADENOCARCINOMA, 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 Inac tive Hope Benavidez MD PhD Hyperkalemia ICD-276.7 Inactive Hope Benavidez MD PhD GERD ICD-530.81 Inactive Kylie Holt MEDIA DEVELOPER 2015 Health maintenance exam ICD-V70.0 Bam Yates MD Anemia ICD-285.9 Inactive Kylie Holt MEDIA DEVELOPER 07/24 Weakness ICD-780.79 Inactive Hope Benavidez MD [...] Sebaceous cyst, scalp ICD-706.2 Inactive Tracy Holt MEDIA DEVELOPER Cervical lymphadenopathy, anterior, left ICD-785.6 Inactive Kylie Holt MEDIA DEVELOPER Need for prophylactic vaccination and inoculation against in fluenza ICD-V04.81 Bam Yates MD Medication List Medication Instructions Start Date Stop Date Generic Name NDC Status Provider Patient Instruction VITAMIN D3 2000 UNIT ORAL CAPS Melaleuca-One daily CHOLECALCIFEROL 05582022562 Active Kylie Yokum MEDIA DEVELOPER Active PROBIOTIC DAILY ORAL CAPS Take one daily PROBIOTIC PRODUCT 39836560746 Active Kylie Holt APRN Active IRON 325 (65 FE) MG TABS 1 every other day FERR OUS SULFATE 77420900505 No Longer Active Kylie Holt APRN Active FLORANEX PACK 1 pack three times daily, for bowel health LACTOBACILLUS 95960713335 No Longer Active Kylie Holt APRN Active LOMOTIL 2.5-0.025 MG TABS 1 tab by mouth prn 4 DIPHENOXYLATE-ATROPINE 88656472562 No Longer Active Kylie Holt APRN Active MAGNESIUM GLUCONATE 250 MG TABS 1 tab tid 4 MAGNESIUM GLUCONATE 16309890437 No Longer Active Kylie Holt APRN Active CYANOCOBALAMIN 1000 MCG/ML INJ SOLN 1 injection every 2 weeks 20 20/01/03 CYANOCOBALAMIN 39475598107 No Longer Active Kylie Holt APRN Active ATENOLOL 25 MG ORAL TABS 1/2 pill by mouth daily, for headac hes, blood pressure ATENOLOL 84916470735 Active Kylie Holt APRN Active PROPRANOLOL HCL 80 MG TABS 1 tab tue. and thur. 04/10 PROPRANOLOL HCL 79321651361 No Longer Active Hope Benavidez MD PhD A ctive VITAMIN D3 4000 IU 1 tab 3 times daily VITAMIN D3 4000 IU No Longer Active Hope Benavidez MD PhD Active BACTRIM DS 800-160 MG TABS 1 pill by mouth twice daily, for UTI SULFAMETHOXAZOLE-TRIMETHOPRIM 03787635891 No Longer Active Lisa Benavidez MD PhD Active PROLIA 60 MG/ML SOLN 1 shot every 6 months for osteoprosis DENOSUMAB 63189879979 Active Hope Benavidez MD PhD Active CALCIUM + D + K 750-500-40 MG-UNT-MCG TABS 1 tab by mouth tw ice daily CALCIUM-VITAMIN D-VITAMIN K 94198903370 Active Hope landers MD PhD Active DAILY VALUE MULTIVITAMIN TABS 1 tab by mouth twice daily MULTIPLE VITAMIN 47105353967 Active Hope Benavidez MD PhD Active FISH OIL 306 MG CAPS 1 tab by mouth three times daily OMEGA-3 FATTY ACIDS 29264687279 Active Hope Benavidez MD PhD Active LUTEIN 10 MG TABS 1 tab daily LUTEIN 80370271306 Act cash Hope Benavidez MD PhD Active TRIAMTERENE-HCTZ 37.5-25 MG TABS 1 tab by mouth daily TRIAMTERENE-HCTZ 10439420008 Active Kylie Holt MEDIA DEVELOPER Active CYCLOBENZAPRINE HCL 10 MG TABS 1 tablet by mouth three times daily as needed for headaches CYCLOBENZAPRINE HCL 48019130463 No Longe r Active Adam Yates MD Active OMEPRAZOLE 20 MG CPDR 1 tablet by mouth daily for GERD OMEPRAZOLE 83595224858 No Longer Active Adam Yates MD A ctive ZOFRAN 8 MG TABS 1 tab by mouth every 12 hours prn 201 05/16/09 ONDANSETRON HCL 85978394940 No Longer Active Adam Yates MD Active PHENADOZ 25 MG SUPP 1 every 4 hrs. PRN PROMETHA ZINE HCL 96696996626 No Longer Active Adam Yates MD Active POTASSIUM CHLORIDE 20 MEQ PACK by mouth twice a day prn POTASSIUM CHLORIDE 55942552668 No Longer Active Adam Yates MD Active PROMETHAZINE HCL 25 MG TABS 1 Q. 4 hr. PRN PROM ETHAZINE HCL 03695797072 No Longer Active Adam Yates MD Active INNOPRAN XL 120 MG [id number] Take one by mouth daily 2 PROPRANOLOL HCL SR BEADS 24558681781 No Longer Active Adam Yates MD A ctive FLAGYL 500 MG TABS 1 pill by mouth three times daily, for diarrh ea METRONIDAZOLE 97366595595 No Longer Active Hope Benavidez MD PhD Active DYAZIDE 37.5-25 MG CAPS 1 qd TRIAMTERENE-HC TZ 69633948885 No Longer Active Hope Benavidez MD PhD Active PROZAC 20 MG CAPS 1 q d FLUOXETINE HCL 41418 285002 No Longer Active Hope Benavidez MD PhD Active SIMVASTATIN 40 MG TABS 1 qd SIMVASTATIN 004 43697578 No Longer Active Adam Yates MD Active MELOXICAM 15 MG TABS 1 qd MELOXICAM 8055708 3604 No Longer Active Adam Yates MD Active IMODIUM A-D 2 MG TABS 2 onset at diarrhea and prn. LOPERAMIDE HCL 01713154538 Active Hope Benavidez MD PhD Active EXCEDRIN EXTRA STRENGTH 250-250-65 MG TABS 1-2 q6h PRN headache 201 04/16/21 [id number] 89368654077 Active Hope Benavidez MD PhD Active FLAGYL 500 MG TABS 1 qid METRONIDAZOLE 54153 306275 No Longer Active Adam Yates MD Active LEVAQUIN 750 MG TABS 1 qd LEVOFLOXACIN 5486 7503161 No Longer Active Adam Yates MD Active ADULT ASPIRIN LOW STRENGTH 81 MG TBDP 1 qd A SPIRIN 30655668865 Active Hope Benavidez MD PhD Active LEVAQUIN 750 MG TABS 1 qd LEVAQUIN 750 MG T ABS 973267 LEVOFLOXACIN Inactive FLAGYL 500 MG TABS 1 qid FLAGYL 500 MG TABS 531097 METRONIDAZOLE Inactive MELOXICAM 15 MG TABS 1 qd MELOXICAM 15 MG T ABS 221885 MELOXICAM Inactive SIMVASTATIN 40 MG TABS 1 qd SIMVASTATIN 40 MG TABS 919943 SIMVASTATIN Inactive PROZAC 20 MG CAPS 1 q d PROZAC 20 MG CAPS 31 0385 FLUOXETINE HCL Inactive DYAZIDE 37.5-25 MG CAPS 1 qd DYAZIDE 37.5 -25 MG CAPS 378177 TRIAMTERENE-HCTZ Inactive INNOPRAN XL 120 MG [id number] Take one by mouth daily 2 INNOPRAN XL 120 MG [id number] PROPRANOLOL HCL SR BEADS Inactive PROMETHAZINE HCL 25 MG TABS 1 Q. 4 hr. PRN PROMETHAZINE HCL 25 MG TABS 652109 PROMETHAZINE HCL Inactive POTASSIUM CHLORIDE 20 MEQ PACK by mouth twice a day prn POTASSIUM CHLORIDE 20 MEQ PACK 802989 POTASSIUM CHLORIDE Inactive PHENADOZ 25 MG SUPP 1 every 4 hrs. PRN PHENADOZ 2 5 MG SUPP 248875 PROMETHAZINE HCL Inactive ZOFRAN 8 MG TABS 1 tab by mouth every 12 hours prn 201 05/16/09 ZOFRAN 8 MG TABS 120849 ONDANSETRON HCL Inactive OMEPRAZOLE 20 MG CPDR 1 tablet by mouth daily for GERD OMEPRAZOLE 20 MG CPDR 182082 OMEPRAZOLE Inactive CYCLOBENZAPRINE HCL 10 MG TABS 1 tablet by mouth three times daily as needed for headaches CYCLOBENZAPRINE HCL 10 MG TABS 612082 CYCLOBENZAPRINE HCL Inactive VITAMIN D3 4000 IU 1 tab 3 times daily VITAMIN D3 4000 IU Inactive PROPRANOLOL HCL 80 MG TABS 1 tab tue. and thur. 04/10 PROPRANOLOL HCL 80 MG TABS 021610 PROPRANOLOL HCL Inactive CYANOCOBALAMIN 1000 MCG/ML INJ SOLN 1 injection every 2 weeks 20 20/01/03 CYANOCOBALAMIN 1000 MCG/ML INJ SOLN 203694 CYANOCOBALAM IN Inactive MAGNESIUM GLUCONATE 250 MG TABS 1 tab tid 4 MAGNESIUM GLUCONATE 250 MG TABS 215431 MAGNESIUM GLUCONATE Inactive LOMOTIL 2.5-0.025 MG TABS 1 tab by mouth prn 4 LOMOTIL 2.5- 0.025 MG TABS 6985126 DIPHENOXYLATE-ATROPINE Inactive FLORANEX PACK 1 pack three times daily, for bowel health FLORANEX PACK LACTOBACILLUS Inactive IRON 325 (65 FE) MG TABS 1 every other day IRON 325 (65 FE) MG TABS 904228 FERROUS SULFATE Inactive FLAGYL 500 MG TABS 1 pill by mouth three times daily, for diarrh ea FLAGYL 500 MG TABS 431830 METRONIDAZOLE Inactive BACTRIM DS 800-160 MG TABS 1 pill by mouth twice daily, for UTI BACTRIM DS 800-160 MG TABS 489613 SULFAMETHOXAZOLE-TRIM ETHOPRIM Inactive Advance Directives Directive Description [...] Panel - Chemistry sodium, serum 142 mmol/L 808-974 5716/04/20 carbon dioxide, venous blood 34.7 mmol/L 21.0-32 [...] ... - Chemistry sodium, serum 139 mmol/L 715-159 4759/10/20 carbon dioxide, venous blood 32.2 mmol/L 21.0-32 [...] - Chemi stry cholesterol, serum 200 mg/dL 695-697 3929/11/22 triglyceride, serum, fasting 129 mg/dL 30-200 HDL cholesterol, serum 56 mg/dL 32-96 LDL cholesterol, serum 118 mg/dL 0-130 calcium, serum 9.0 mg/dL 8.5-10.1 Lab Report: MicroAlb Random w/creat/6517 - Urinalysis microalbumin/total urine volume 8 mg/L Units converted. See lab report for original value. microalbumin/creatinine ratio, urine 15 MCG/MG CREAT mg/L <30 Encounters Code Encounter Date Provider Facility CPT-32972 Level 3 New Patient 16:22:01 SHOE STOCK ASSOCIATE Adam Yates MD [facility] CPT-31399 Level 4 Est. Patient 17:00:48 CDT Kylie Yok [facility] CPT-66223 Level 3 Est. Patient 13:15:54 CDT Kylie Lund [facility] CPT-26224 Level 3 Est. Patient 09:10:11 CDT Kylie Lund [facility] CPT-96338 Level 4 Est. Patient 12:08:30 SHOE STOCK ASSOCIATE Hope cohn MD [facility] CPT-48235 Level 4 Est. Patient 19:08:42 SHOE STOCK ASSOCIATE Hope cohn MD [facility] CPT-94584 Level 4 Est. Patient 20:04:51 CDT Hope cohn MD [facility] CPT-61615 Level 3 New Patient 01:46:11 SHOE STOCK ASSOCIATE Hope landers MD [facility] Procedures Code Procedure Name Date Entry Date Standard Desc ription CPT-99265 Lipid - LAB USE ONLY 10:01:52 SHOE STOCK ASSOCIATE 2 CPT-19751 Calcium - LAB USE ONLY 10:01:51 SHOE STOCK ASSOCIATE CPT-73344 Venipuncture Draw Fee 10:01:51 SHOE STOCK ASSOCIATE CPT-LR Lesion Removal 16:22:01 SHOE STOCK ASSOCIATE CPT-05226 TSH - LAB USE ONLY 14:26:02 CDT CPT-37278 CMP - LAB USE ONLY 14:26:01 CDT CPT-03494 CBC with Diff - LAB USE ONLY 14:26:01 CDT 2 CPT-20288 Venipuncture Draw Fee 14:26:01 CDT CPT-91253 First Vx - Ix admin for Medicare patients 13:27:08 CDT CPT-06017 Fluzone High-Dose Intramuscular Suspension 11/26 13:27:08 CDT CPT-G0438 Initial Annual Wellness Exam 14:19:57 CD T CPT-G0009 Administration of Pneumococcal Vaccine 9 11:36:25 CDT CPT-90158 Prevnar 13 Intramuscular Suspension 1 1:36:25 CDT CPT-81334 Prevnar 13 Intramuscular Suspension 1 0:40:58 CDT CPT-J0897 Prolia 60 mg 10:37:16 CDT CPT-43971 Abx/Therapy Injection 10:37:16 CDT CPT-J0897 Prolia 60 mg 16:09:34 SHOE STOCK ASSOCIATE CPT-J0897 Prolia 60 mg 11:10:35 SHOE STOCK ASSOCIATE CPT-17606 Abx/Therapy Injection 11:10:35 SHOE STOCK ASSOCIATE CPT-000 Give Appropriate Flu Vaccine 17:01:15 SHOE STOCK ASSOCIATE 2 CPT-36014 Fluzone High Dose (65+) 15:03:08 SHOE STOCK ASSOCIATE 02/15 CPT-33866 Immunization Single Admin 15:03:08 SHOE STOCK ASSOCIATE 2014 CPT-OV Office Visit 15:58:06 CDT CPT-J0897 Prolia 60 mg 08:45:38 CDT CPT-13443 Abx/Therapy Injection 08:45:38 CDT CPT-J3420 Vitamin B12 1000mcg (Cyanocobalamin) 09:26:20 SHOE STOCK ASSOCIATE CPT-07639 Abx/Therapy Injection 09:26:20 SHOE STOCK ASSOCIATE CPT-J3420 Vitamin B12 1000mcg (Cyanocobalamin) 09:44:40 SHOE STOCK ASSOCIATE CPT-09747 Abx/Therapy Injection 09:44:40 SHOE STOCK ASSOCIATE CPT-J3420 Vitamin B12 1000mcg (Cyanocobalamin) 09:15:54 SHOE STOCK ASSOCIATE CPT-02012 Abx/Therapy Injection 09:15:54 SHOE STOCK ASSOCIATE CPT-J3420 Vitamin B12 1000mcg (Cyanocobalamin) 09:46:44 SHOE STOCK ASSOCIATE CPT-24313 Abx/Therapy Injection 09:46:44 SHOE STOCK ASSOCIATE CPT-J3420 Vitamin B12 1000mcg (Cyanocobalamin) 09:47:34 SHOE STOCK ASSOCIATE CPT-95778 Abx/Therapy Injection 09:47:34 SHOE STOCK ASSOCIATE CPT-J3420 Vitamin B12 1000mcg (Cyanocobalamin) 14:35:50 SHOE STOCK ASSOCIATE CPT-J3420 Vitamin B12 1000mcg (Cyanocobalamin) 09:25:05 SHOE STOCK ASSOCIATE CPT-15537 Abx/Therapy Injection 09:25:05 SHOE STOCK ASSOCIATE CPT-G0008 Administration of Influenza Virus Vaccine 13:36:47 CDT CPT-29001 Fluzone High-Dose Intramuscular Suspension 11/15 13:36:47 CDT CPT-J0897 Prolia 60 mg 08:50:41 CDT CPT-04190 Abx/Therapy Injection 08:50:41 CDT CPT-66537 Bone Density 12:06:12 CDT CPT-98682 Bone Density 08:54:40 CDT CPT-OV Office Visit 15:37:02 CDT CPT-44085 Postop F/U Visit 15:47:49 CDT CPT-13868 Postop F/U Visit 15:21:02 CDT CPT-PENDING SALE TO [facility] Transitional Care Mgmt-High 07:52:27 CDT 20 20/06/01 CPT-70491 Venipuncture Draw Fee 13:51:18 CDT CPT-53646 Venipuncture Draw Fee 10:14:55 SHOE STOCK ASSOCIATE CPT-97344 Venipuncture Draw Fee 13:39:45 SHOE STOCK ASSOCIATE CPT-OV Office Visit 15:11:22 SHOE STOCK ASSOCIATE CPT-23348 Venipuncture Draw Fee 09:20:49 SHOE STOCK ASSOCIATE CPT-82851 Venipuncture Draw Fee 16:52:15 SHOE STOCK ASSOCIATE CPT-71117 Venipuncture Draw Fee 10:37:24 SHOE STOCK ASSOCIATE CPT-20229 Venipuncture Draw Fee 08:21:21 SHOE STOCK ASSOCIATE CPT-95310 Venipuncture Draw Fee 08:30:20 SHOE STOCK ASSOCIATE CPT-27264 Venipuncture Draw Fee 14:53:21 SHOE STOCK ASSOCIATE CPT-92947 Venipuncture Draw Fee 09:40:56 SHOE STOCK ASSOCIATE CPT-80399 Venipuncture Draw Fee 10:30:47 SHOE STOCK ASSOCIATE CPT-26029 Venipuncture Draw Fee 10:46:17 SHOE STOCK ASSOCIATE CPT-79806 Venipuncture Draw Fee 11:12:45 SHOE STOCK ASSOCIATE CPT-27477 Venipuncture Draw Fee 09:53:33 SHOE STOCK ASSOCIATE CPT-65251 Venipuncture Draw Fee 11:53:51 SHOE STOCK ASSOCIATE CPT-04471 Venipuncture Draw Fee 10:33:50 SHOE STOCK ASSOCIATE CPT-02300 Venipuncture Draw Fee 10:05:01 SHOE STOCK ASSOCIATE CPT-31082 Venipuncture Draw Fee 14:32:52 SHOE STOCK ASSOCIATE CPT-44796 Venipuncture Draw Fee 09:46:13 SHOE STOCK ASSOCIATE CPT-12654 Venipuncture Draw Fee 11:34:27 SHOE STOCK ASSOCIATE CPT-19069 Venipuncture Draw Fee 13:17:16 SHOE STOCK ASSOCIATE CPT-49721 Venipuncture Draw Fee 12:05:39 CDT CPT-29018 Venipuncture Draw Fee 12:49:12 CDT CPT-65625 Venipuncture Draw Fee 12:37:18 CDT CPT-36648 Venipuncture Draw Fee 10:57:11 CDT CPT-73852 Venipuncture Draw Fee 13:47:40 CDT CPT-64333 Venipuncture Draw Fee 10:02:17 CDT CPT-06060 TB Tubersol 17:32:32 CDT CPT-OV Office Visit 16:21:53 CDT CPT-OV Office Visit 15:49:22 CDT CPT-OV Office Visit 17:16:31 CDT CPT-OV Office Visit 10:43:31 CDT
--- OUTSIDE RECORDS SUMMARY | 2019-02-09 12:24 | XMS REPORT | Clinical Summary ---
Author Author Renaldo, Florecita Munoz Organization [facility] [employer] Address Unknown Phone Unavailable Allergies, Adverse Reactions, [...] PhD Hyperpotassemia GERD 530.81 Resolved Kylie Yokum PASTEURIZING SUPERVISOR Esophageal reflux Health maintenance exam V70.0 Resolved Adolfo Yates MD Routine general medical examination at a health care facility Anemia 285.9 Resolved Kylie Holt PASTEURIZING SUPERVISOR Anemia, unspecified Personal history of malignant [...] Sebaceous cyst, scalp 706.2 Resolved Kylie Holt PASTEURIZING SUPERVISOR Sebaceous cyst Cervical lymphadenopathy, anterior, left 785.6 Resolv ed Kylie Holt PASTEURIZING SUPERVISOR Enlargement of lymph nodes Need for prophylactic vaccination and inoculation against in fluenza V04.81 Resolved Adam Yates MD Need for prophylactic vaccination and inoculation against influenza Preventive health care V70.0 Active Kylie Holt PASTEURIZING SUPERVISOR Routine general medical examination at a health care facility Thyroid nodule, left 241.0 Active Kylie Gonzalez PRN Nontoxic uninodular goiter Screening mammogram V76.12 Active Kylie Holt AP RN Other screening mammogram Mandy 706.2 Active Adam Yates MD Sebaceous cyst ABDOMINAL PAIN, RIGHT LOWER QUADRANT ICD-789.03 Inactive Kina Joshua PASTEURIZING SUPERVISOR ADENOCARCINOMA, COLON, 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 Dick Yates MD ABDOMINAL PAIN, GENERALIZED ICD-789.07 Inactive Hope Benavidez MD PhD FEVER UNSPECIFIED ICD-780.60 Inactive Hope cohn MD PhD UNSPECIFIED VENOUS INSUFFICIENCY ICD-459.81 [place] ctive Adam Yates MD ADENOCARCINOMA, 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 Inac tive Hope Benavidez MD PhD Hyperkalemia ICD-276.7 Inactive Hope Benavidez MD PhD GERD ICD-530.81 Inactive Kylie Holt PASTEURIZING SUPERVISOR 2015 Health maintenance exam ICD-V70.0 Bam Yates MD Anemia ICD-285.9 Inactive Kylie Holt PASTEURIZING SUPERVISOR 07/24 Weakness ICD-780.79 Inactive Hope Benavidez MD [...] cyst, scalp ICD-706.2 Inactive Tracy shubham Yanet PASTEURIZING SUPERVISOR Cervical lymphadenopathy, anterior, left ICD-785.6 Inactive Kylie Holt PASTEURIZING SUPERVISOR Need for prophylactic vaccination and inoculation against in fluenza ICD-V04.81 Bam Yates MD Medication List Medication Instructions Start Date Stop Date Generic Name NDC Status Provider Patient Instruction VITAMIN D3 2000 UNIT ORAL CAPS Melaleuca-One daily CHOLECALCIFEROL [id number] Active Kylie Yokum PASTEURIZING SUPERVISOR Active PROBIOTIC DAILY ORAL CAPS Take one daily PROBIOTIC PRODUCT 78614711087 Active Kylie Holt PASTEURIZING SUPERVISOR Active IRON 325 (65 FE) MG TABS 1 every other day FERR OUS SULFATE 80432949361 No Longer Active Kylie Holt PASTEURIZING SUPERVISOR Active FLORANEX PACK 1 pack three times daily, for bowel health LACTOBACILLUS 43968714924 No Longer Active Kylie Holt PASTEURIZING SUPERVISOR Active LOMOTIL 2.5-0.025 MG TABS 1 tab by mouth prn 4 DIPHENOXYLATE-ATROPINE 44083395793 No Longer Active Kylie Lundum PASTEURIZING SUPERVISOR Active MAGNESIUM GLUCONATE 250 MG TABS 1 tab tid 4 MAGNESIUM GLUCONATE 67204638725 No Longer Active Kylie Holt PASTEURIZING SUPERVISOR Active CYANOCOBALAMIN 1000 MCG/ML INJ SOLN 1 injection every 2 weeks 20 20/01/03 CYANOCOBALAMIN 17768499033 No Longer Active Kylie Holt PASTEURIZING SUPERVISOR Active ATENOLOL 25 MG ORAL TABS 1/2 pill by mouth daily, for headac hes, blood pressure ATENOLOL 13354525435 Active Kylie Lundum PASTEURIZING SUPERVISOR Active PROPRANOLOL HCL 80 MG TABS 1 tab tue. and thur. 04/10 PROPRANOLOL HCL 74908449043 No Longer Active Hope Benavidez MD PhD A ctive VITAMIN D3 4000 IU 1 tab 3 times daily VITAMIN D3 4000 IU No Longer Active Hope Benavidez MD PhD Active BACTRIM DS 800-160 MG TABS 1 pill by mouth twice daily, for UTI SULFAMETHOXAZOLE-TRIMETHOPRIM 76407569664 No Longer Active A attila Benavidez MD PhD Active PROLIA 60 MG/ML SOLN 1 shot every 6 months for osteoprosis DENOSUMAB 35610195292 Active Hope Benavidez MD PhD Active CALCIUM + D + K 750-500-40 MG-UNT-MCG TABS 1 tab by mouth tw ice daily CALCIUM-VITAMIN D-VITAMIN K 66725073394 Active Hope landers MD PhD Active DAILY VALUE MULTIVITAMIN TABS 1 tab by mouth twice daily MULTIPLE VITAMIN 29178415940 Active Hope Benavidez MD PhD Active FISH OIL 306 MG CAPS 1 tab by mouth three times daily OMEGA-3 FATTY ACIDS 13560748454 Active Hope Benavidez MD PhD Active LUTEIN 10 MG TABS 1 tab daily LUTEIN 39221047243 Act cash Hope Benavidez MD PhD Active TRIAMTERENE-HCTZ 37.5-25 MG TABS 1 tab by mouth daily TRIAMTERENE-HCTZ 83513879963 Active Kylieshubham Holt PASTEURIZING SUPERVISOR Active CYCLOBENZAPRINE HCL 10 MG TABS 1 tablet by mouth three times daily as needed for headaches CYCLOBENZAPRINE HCL 59585398594 No Longe r Active Adam Yates MD Active OMEPRAZOLE 20 MG CPDR 1 tablet by mouth daily for GERD OMEPRAZOLE 15371377953 No Longer Active Adam Yates MD A ctive ZOFRAN 8 MG TABS 1 tab by mouth every 12 hours prn 201 05/16/09 ONDANSETRON HCL 58851895941 No Longer Active Adam Yates MD Active PHENADOZ 25 MG SUPP 1 every 4 hrs. PRN PROMETHA ZINE HCL 38459718027 No Longer Active Adam Yates MD Active POTASSIUM CHLORIDE 20 MEQ PACK by mouth twice a day prn POTASSIUM CHLORIDE 41053636391 No Longer Active Adam Yates MD Active PROMETHAZINE HCL 25 MG TABS 1 Q. 4 hr. PRN PROM ETHAZINE HCL 67234140848 No Longer Active Adam Yates MD Active INNOPRAN XL 120 MG [id number] Take one by mouth daily 2 PROPRANOLOL HCL SR BEADS 37828000900 No Longer Active Adam Yates MD A ctive FLAGYL 500 MG TABS 1 pill by mouth three times daily, for diarrh ea METRONIDAZOLE 61613405606 No Longer Active Hope Benavidez MD PhD Active DYAZIDE 37.5-25 MG CAPS 1 qd TRIAMTERENE-HC TZ 43454344451 No Longer Active Hope Benavidez MD PhD Active PROZAC 20 MG CAPS 1 q d FLUOXETINE HCL 92127 700760 No Longer Active Hope Benavidez MD PhD Active SIMVASTATIN 40 MG TABS 1 qd SIMVASTATIN 004 33794872 No Longer Active Adam Yates MD Active MELOXICAM 15 MG TABS 1 qd MELOXICAM 9345971 1011 No Longer Active Adam Yates MD Active IMODIUM A-D 2 MG TABS 2 onset at diarrhea and prn. LOPERAMIDE HCL 63273729028 Active Hope Benavidez MD PhD Active EXCEDRIN EXTRA STRENGTH 250-250-65 MG TABS 1-2 q6h PRN headache 201 04/16/21 [id number] 52780459879 Active Hope Benavidez MD PhD Active FLAGYL 500 MG TABS 1 qid METRONIDAZOLE 28591 670210 No Longer Active Adam Yates MD Active LEVAQUIN 750 MG TABS 1 qd LEVOFLOXACIN 5486 4979047 No Longer Active Adam Yates MD Active ADULT ASPIRIN LOW STRENGTH 81 MG TBDP 1 qd A SPIRIN 87668837465 Active Hope Benavidez MD PhD Active LEVAQUIN 750 MG TABS 1 qd LEVAQUIN 750 MG T ABS 761175 LEVOFLOXACIN Inactive FLAGYL 500 MG TABS 1 qid FLAGYL 500 MG TABS 635185 METRONIDAZOLE Inactive MELOXICAM 15 MG TABS 1 qd MELOXICAM 15 MG T ABS 162865 MELOXICAM Inactive SIMVASTATIN 40 MG TABS 1 qd SIMVASTATIN 40 MG TABS 684738 SIMVASTATIN Inactive PROZAC 20 MG CAPS 1 q d PROZAC 20 MG CAPS 31 0385 FLUOXETINE HCL Inactive DYAZIDE 37.5-25 MG CAPS 1 qd DYAZIDE 37.5 -25 MG CAPS 453963 TRIAMTERENE-HCTZ Inactive INNOPRAN XL 120 MG [id number] Take one by mouth daily 2 INNOPRAN XL 120 MG [id number] PROPRANOLOL HCL SR BEADS Inactive PROMETHAZINE HCL 25 MG TABS 1 Q. 4 hr. PRN PROMETHAZINE HCL 25 MG TABS 147588 PROMETHAZINE HCL Inactive POTASSIUM CHLORIDE 20 MEQ PACK by mouth twice a day prn POTASSIUM CHLORIDE 20 MEQ PACK 236689 POTASSIUM CHLORIDE Inactive PHENADOZ 25 MG SUPP 1 every 4 hrs. PRN PHENADOZ 2 5 MG SUPP 774766 PROMETHAZINE HCL Inactive ZOFRAN 8 MG TABS 1 tab by mouth every 12 hours prn 201 05/16/09 ZOFRAN 8 MG TABS 576566 ONDANSETRON HCL Inactive OMEPRAZOLE 20 MG CPDR 1 tablet by mouth daily for GERD OMEPRAZOLE 20 MG CPDR 184630 OMEPRAZOLE Inactive CYCLOBENZAPRINE HCL 10 MG TABS 1 tablet by mouth three times daily as needed for headaches CYCLOBENZAPRINE HCL 10 MG TABS 576845 CYCLOBENZAPRINE HCL Inactive VITAMIN D3 4000 IU 1 tab 3 times daily VITAMIN D3 4000 IU Inactive PROPRANOLOL HCL 80 MG TABS 1 tab tue. and thur. 04/10 PROPRANOLOL HCL 80 MG TABS 591565 PROPRANOLOL HCL Inactive CYANOCOBALAMIN 1000 MCG/ML INJ SOLN 1 injection every 2 weeks 20 20/01/03 CYANOCOBALAMIN 1000 MCG/ML INJ SOLN 268201 CYANOCOBALAM IN Inactive MAGNESIUM GLUCONATE 250 MG TABS 1 tab tid 4 MAGNESIUM GLUCONATE 250 MG TABS 886169 MAGNESIUM GLUCONATE Inactive LOMOTIL 2.5-0.025 MG TABS 1 tab by mouth prn 4 LOMOTIL 2.5- 0.025 MG TABS 3441463 DIPHENOXYLATE-ATROPINE Inactive FLORANEX PACK 1 pack three times daily, for bowel health FLORANEX PACK LACTOBACILLUS Inactive IRON 325 (65 FE) MG TABS 1 every other day IRON 325 (65 FE) MG TABS 219943 FERROUS SULFATE Inactive FLAGYL 500 MG TABS 1 pill by mouth three times daily, for diarrh ea FLAGYL 500 MG TABS 065644 METRONIDAZOLE Inactive BACTRIM DS 800-160 MG TABS 1 pill by mouth twice daily, for UTI BACTRIM DS 800-160 MG TABS 333099 SULFAMETHOXAZOLE-TRIM ETHOPRIM Inactive Advance Directives Directive Description [...] Panel - Chemistry sodium, serum 142 mmol/L 486-514 0053/04/20 carbon dioxide, venous blood 34.7 mmol/L 21.0-32 [...] Metabolic Panel - Hematology erythrocyte (RBC) count 4.48 10^6/MM^3 10*6/mm3 4.04-5.4 8 mean corpuscular hemoglobin concentration, RBC 33.5 G/DL % 31.8-35.4 mean corpuscular hemoglobin, RBC 32.3 pg 27. 0-31.2 mean corpuscular volume, RBC 97 fL 80-97 hematocrit, blood 43.2 % 36.0-46.0 hemoglobin, blood 14.5 g/dL 12.0-16.0 monocytes as percent of blood leukocytes 5.9 % 1.7-9.3 neutrophils as percent of blood leukocytes 54.2 % 42.2-75.2 leukocyte count, blood 5.9 10^3/MM^3 10*3/mm3 4.6-10.2 red blood cell distribution width 14.2 % 11 .6-14.8 platelet count 204 10^3/MM^3 10*3/mm3 206-217 4210/04/20 lymphocytes as percent of blood leukocytes 35.6 % 20.5-51.1 Lab Report: CBC W/DIFF, Comp. Metabolic Panel, Thyroid Stimulating Hormo ... - Chemistry sodium, serum 139 mmol/L 991-715 4794/10/20 carbon dioxide, venous blood 32.2 mmol/L 21.0-32 [...] Panel, Thyroid Stimulating Hormo ... - Hematology neutrophils as percent of blood leukocytes 53.4 % 42.2-75.2 monocytes as percent of blood leukocytes 4.7 % 1.7-9.3 lymphocytes as percent of blood leukocytes 37.9 % 20.5-51.1 erythrocyte (RBC) count 4.69 10^6/MM^3 10*6/mm3 4.04-5.4 8 hemoglobin, blood 15.1 g/dL 12.0-16.0 leukocyte count, blood 6.0 10^3/MM^3 10*3/mm3 4.6-10.2 hematocrit, blood 44.5 % 36.0-46.0 mean corpuscular [...] - Chemi stry cholesterol, serum 200 mg/dL 368-958 6357/11/22 triglyceride, serum, fasting 129 mg/dL 30-200 HDL cholesterol, serum 56 mg/dL 32-96 LDL cholesterol, serum 118 mg/dL 0-130 calcium, serum 9.0 mg/dL 8.5-10.1 Encounters Code Encounter Date Provider Facility CPT-48371 Level 3 New Patient 16:22:01 TRANSIT PLANNING MANAGER Adam Yates MD [facility] CPT-10489 Level 4 Est. Patient 17:00:48 CDT Kylie Lund [facility] CPT-98095 Level 3 Est. Patient 13:15:54 CDT Kylie Lund [facility] [place] CPT-90537 Level 3 Est. Patient 09:10:11 CDT Kylie boyd PASTEURIZING SUPERVISOR [facility] CPT-15779 Level 4 Est. Patient 12:08:30 TRANSIT PLANNING MANAGER Hope cohn MD PhD [facility] CPT-26775 Level 4 Est. Patient 19:08:42 TRANSIT PLANNING MANAGER Hope cohn MD PhD [facility] CPT-19156 Level 4 Est. Patient 20:04:51 CDT Hope cohn MD PhD [facility] CPT-24382 Level 3 New Patient 01:46:11 TRANSIT PLANNING MANAGER Hope landers MD PhD [facility] Procedures Code Procedure Name Date Entry Date Standard Desc ription CPT-36034 Lipid - LAB USE ONLY 10:01:52 TRANSIT PLANNING MANAGER 2 CPT-51832 Calcium - LAB USE ONLY 10:01:51 TRANSIT PLANNING MANAGER CPT-68898 Venipuncture Draw Fee 10:01:51 TRANSIT PLANNING MANAGER CPT-LR Lesion Removal 16:22:01 TRANSIT PLANNING MANAGER CPT-57105 TSH - LAB USE ONLY 14:26:02 CDT CPT-58739 CMP - LAB USE ONLY 14:26:01 CDT CPT-73550 CBC with Diff - LAB USE ONLY 14:26:01 CDT 2 CPT-74772 Venipuncture Draw Fee 14:26:01 CDT CPT-72924 First Vx - Ix admin for Medicare patients 13:27:08 CDT CPT-61227 Fluzone High-Dose Intramuscular Suspension 11/26 13:27:08 CDT CPT-G0438 Initial Annual Wellness Exam 14:19:57 CD T CPT-G0009 Administration of Pneumococcal Vaccine 9 11:36:25 CDT CPT-91716 Prevnar 13 Intramuscular Suspension 1 1:36:25 CDT CPT-30996 Prevnar 13 Intramuscular Suspension 1 0:40:58 CDT CPT-J0897 Prolia 60 mg 10:37:16 CDT CPT-00630 Abx/Therapy Injection 10:37:16 CDT CPT-J0897 Prolia 60 mg 16:09:34 TRANSIT PLANNING MANAGER CPT-J0897 Prolia 60 mg 11:10:35 TRANSIT PLANNING MANAGER CPT-47314 Abx/Therapy Injection 11:10:35 TRANSIT PLANNING MANAGER CPT-000 Give Appropriate Flu Vaccine 17:01:15 TRANSIT PLANNING MANAGER 2 CPT-73764 Fluzone High Dose (65+) 15:03:08 TRANSIT PLANNING MANAGER 02/15 CPT-92074 Immunization Single Admin 15:03:08 TRANSIT PLANNING MANAGER 2014 CPT-OV Office Visit 15:58:06 CDT CPT-J0897 Prolia 60 mg 08:45:38 CDT CPT-60035 Abx/Therapy Injection 08:45:38 CDT CPT-J3420 Vitamin B12 1000mcg (Cyanocobalamin) 09:26:20 TRANSIT PLANNING MANAGER CPT-55082 Abx/Therapy Injection 09:26:20 TRANSIT PLANNING MANAGER CPT-J3420 Vitamin B12 1000mcg (Cyanocobalamin) 09:44:40 TRANSIT PLANNING MANAGER CPT-79087 Abx/Therapy Injection 09:44:40 TRANSIT PLANNING MANAGER CPT-J3420 Vitamin B12 1000mcg (Cyanocobalamin) 09:15:54 TRANSIT PLANNING MANAGER CPT-40244 Abx/Therapy Injection 09:15:54 TRANSIT PLANNING MANAGER CPT-J3420 Vitamin B12 1000mcg (Cyanocobalamin) 09:46:44 TRANSIT PLANNING MANAGER CPT-19512 Abx/Therapy Injection 09:46:44 TRANSIT PLANNING MANAGER CPT-J3420 Vitamin B12 1000mcg (Cyanocobalamin) 09:47:34 TRANSIT PLANNING MANAGER CPT-58971 Abx/Therapy Injection 09:47:34 TRANSIT PLANNING MANAGER CPT-J3420 Vitamin B12 1000mcg (Cyanocobalamin) 14:35:50 TRANSIT PLANNING MANAGER CPT-J3420 Vitamin B12 1000mcg (Cyanocobalamin) 09:25:05 TRANSIT PLANNING MANAGER CPT-99759 Abx/Therapy Injection 09:25:05 TRANSIT PLANNING MANAGER CPT-G0008 Administration of Influenza Virus Vaccine 13:36:47 CDT CPT-69404 Fluzone High-Dose Intramuscular Suspension 11/15 13:36:47 CDT CPT-J0897 Prolia 60 mg 08:50:41 CDT CPT-52269 Abx/Therapy Injection 08:50:41 CDT CPT-22676 Bone Density 12:06:12 CDT CPT-62820 Bone Density 08:54:40 CDT CPT-OV Office Visit 15:37:02 CDT CPT-99927 Postop F/U Visit 15:47:49 CDT CPT-11728 Postop F/U Visit 15:21:02 CDT [facility] Transitional Care Mgmt-High 07:52:27 CDT 20 20/06/01 CPT-08875 Venipuncture Draw Fee 13:51:18 CDT CPT-60558 Venipuncture Draw Fee 10:14:55 TRANSIT PLANNING MANAGER CPT-44807 Venipuncture Draw Fee 13:39:45 TRANSIT PLANNING MANAGER CPT-OV Office Visit 15:11:22 TRANSIT PLANNING MANAGER CPT-44768 Venipuncture Draw Fee 09:20:49 TRANSIT PLANNING MANAGER CPT-29739 Venipuncture Draw Fee 16:52:15 TRANSIT PLANNING MANAGER CPT-18877 Venipuncture Draw Fee 10:37:24 TRANSIT PLANNING MANAGER CPT-57033 Venipuncture Draw Fee 08:21:21 TRANSIT PLANNING MANAGER CPT-07367 Venipuncture Draw Fee 08:30:20 TRANSIT PLANNING MANAGER CPT-30100 Venipuncture Draw Fee 14:53:21 TRANSIT PLANNING MANAGER CPT-74500 Venipuncture Draw Fee 09:40:56 TRANSIT PLANNING MANAGER CPT-99380 Venipuncture Draw Fee 10:30:47 TRANSIT PLANNING MANAGER CPT-31237 Venipuncture Draw Fee 10:46:17 TRANSIT PLANNING MANAGER CPT-74649 Venipuncture Draw Fee 11:12:45 TRANSIT PLANNING MANAGER CPT-98595 Venipuncture Draw Fee 09:53:33 TRANSIT PLANNING MANAGER CPT-79835 Venipuncture Draw Fee 11:53:51 TRANSIT PLANNING MANAGER CPT-99532 Venipuncture Draw Fee 10:33:50 TRANSIT PLANNING MANAGER CPT-96834 Venipuncture Draw Fee 10:05:01 TRANSIT PLANNING MANAGER CPT-03036 Venipuncture Draw Fee 14:32:52 TRANSIT PLANNING MANAGER CPT-33546 Venipuncture Draw Fee 09:46:13 TRANSIT PLANNING MANAGER CPT-06537 Venipuncture Draw Fee 11:34:27 TRANSIT PLANNING MANAGER CPT-42118 Venipuncture Draw Fee 13:17:16 TRANSIT PLANNING MANAGER CPT-02375 Venipuncture Draw Fee 12:05:39 CDT CPT-76445 Venipuncture Draw Fee 12:49:12 CDT CPT-20068 Venipuncture Draw Fee 12:37:18 CDT CPT-60209 Venipuncture Draw Fee 10:57:11 CDT CPT-65419 Venipuncture Draw Fee 13:47:40 CDT CPT-86433 Venipuncture Draw Fee 10:02:17 CDT CPT-33813 TB Tubersol 17:32:32 CDT CPT-OV Office Visit 16:21:53 CDT CPT-OV Office Visit 15:49:22 CDT CPT-OV Office Visit 17:16:31 CDT CPT-OV Office Visit 10:43:31 CDT
--- OUTSIDE RECORDS SUMMARY | 2019-02-09 12:25 | XMS REPORT | Clinical Summary ---
Author Author Renaldo, Florecita Munoz Organization [facility] [employer] Address Unknown Phone Unavailable Allergies, Adverse Reactions, Alerts Allergy Name Reaction Description Start Date Severity Status Pr ovider NKDA Critical Active Kylie MEEK RN Conditions or Problems Problem Name Problem Code Onset Date Status Entry Date Provider Comment Standard Description Annotate HYPERLIPIDEMIA 272.4 Active Kina Joshua APRN Other and unspecified hyperlipidemia HYPERTENSION 401.9 Active iKna Joshua APRN Unspecified essential hypertension ABDOMINAL PAIN, [...] PhD Hyperpotassemia GERD 530.81 Resolved Kylie Yokum CERTIFIED NUCLEAR MEDICINE TECHNOLOGIST Esophageal reflux Health maintenance exam V70.0 Resolved Adolfo Yates MD Routine general medical examination at a health care facility Anemia 285.9 Resolved Kylie Yanet CERTIFIED NUCLEAR MEDICINE TECHNOLOGIST Anemia, unspecified Personal history of malignant neoplasm of large intestine V10.05 Active Adam Yates MD Personal history of malignant neoplasm of large intestine Hypomagnesemia 275.2 Resolved Kylie Yanet CERTIFIED NUCLEAR MEDICINE TECHNOLOGIST Disorders of magnesium metabolism Weakness 780.79 Resolved [...] Sebaceous cyst, scalp 706.2 Resolved Kylie Yokum CERTIFIED NUCLEAR MEDICINE TECHNOLOGIST Sebaceous cyst Cervical lymphadenopathy, anterior, left 785.6 Resolv ed Kylie Yokum CERTIFIED NUCLEAR MEDICINE TECHNOLOGIST Enlargement of lymph nodes Need for prophylactic vaccination and inoculation against in fluenza V04.81 Resolved Adam Yates MD Need for prophylactic vaccination and inoculation against influenza Preventive health care V70.0 Resolved Kylie Escalonaku m CERTIFIED NUCLEAR MEDICINE TECHNOLOGIST Routine general medical examination at a health care facility Thyroid nodule, left 241.0 Active Kylie Yokum A PRN Nontoxic uninodular goiter Screening mammogram V76.12 Resolved Kylie Yokum A PRN Other screening mammogram Mandy 706.2 Resolved Kylie Yokum CERTIFIED NUCLEAR MEDICINE TECHNOLOGIST Sebaceous cyst Colon cancer, ascending 153.6 Resolved Kylie Yok um CERTIFIED NUCLEAR MEDICINE TECHNOLOGIST Malignant neoplasm of ascending colon Foot pain, left 729.5 Resolved Kylei Yokum CERTIFIED NUCLEAR MEDICINE TECHNOLOGIST Pain in limb Splinter 919.6 Resolved Kylie Yokum CERTIFIED NUCLEAR MEDICINE TECHNOLOGIST Superficial foreign body (splinter) of other, multiple, and unspecified sites, without major open wound and without mention of infection Rash 782.1 Resolved Kylie Yokum CERTIFIED NUCLEAR MEDICINE TECHNOLOGIST Rash and other nonspecific skin eruption Cyst 706.2 Resolved Kylie Yokum CERTIFIED NUCLEAR MEDICINE TECHNOLOGIST Sebaceous cyst Body Mass Index 23.0-23.9 Adult Active Kylie Yokum CERTIFIED NUCLEAR MEDICINE TECHNOLOGIST Body Mass Index between 19-24, adult Unspecified [...] RIGHT LOWER QUADRANT ICD-789.03 Inactive Kina Joshua CERTIFIED NUCLEAR MEDICINE TECHNOLOGIST ADENOCARCINOMA, COLON, 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 Dick Yates MD ABDOMINAL PAIN, GENERALIZED ICD-789.07 Inactive Hope Benavidez MD PhD FEVER UNSPECIFIED ICD-780.60 Inactive Hope cohn MD PhD UNSPECIFIED VENOUS INSUFFICIENCY ICD-459.81 [place] Adam Yates MD ADENOCARCINOMA, 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 Inac tive Hope Benavidez MD PhD Hyperkalemia ICD-276.7 Inactive Hope Benavidez MD PhD GERD ICD-530.81 Inactive Kylie Holt CERTIFIED NUCLEAR MEDICINE TECHNOLOGIST 2015 Health maintenance exam ICD-V70.0 Inactive Adolfo Yates MD Anemia ICD-285.9 Inactive Kylie Yokum CERTIFIED NUCLEAR MEDICINE TECHNOLOGIST 07/24 Hypomagnesemia ICD-275.2 Inactive Kylie Yokum CERTIFIED NUCLEAR MEDICINE TECHNOLOGIST Weakness ICD-780.79 Inactive Hope Benavidez MD P [...] cyst, scalp ICD-706.2 Inactive Tracy hi Yokum CERTIFIED NUCLEAR MEDICINE TECHNOLOGIST Cervical lymphadenopathy, anterior, left ICD-785.6 Inactive Kylie Yokum CERTIFIED NUCLEAR MEDICINE TECHNOLOGIST Need for prophylactic vaccination and inoculation against in fluenza ICD-V04.81 Inactive Adam Yates MD Preventive health care ICD-V70.0 Inactive Ka thi Yokum CERTIFIED NUCLEAR MEDICINE TECHNOLOGIST Screening mammogram ICD-V76.12 Inactive Kylie Yokum CERTIFIED NUCLEAR MEDICINE TECHNOLOGIST Mandy ICD-706.2 Inactive Kylie Holt CERTIFIED NUCLEAR MEDICINE TECHNOLOGIST 07/20 Colon cancer, ascending ICD-153.6 Inactive K umang Holt CERTIFIED NUCLEAR MEDICINE TECHNOLOGIST Foot pain, left ICD-729.5 Inactive Kylie Holt CERTIFIED NUCLEAR MEDICINE TECHNOLOGIST Splinter ICD-919.6 Inactive Kylie Holt CERTIFIED NUCLEAR MEDICINE TECHNOLOGIST 2017 Rash ICD-782.1 Inactive Kylie Lundum CERTIFIED NUCLEAR MEDICINE TECHNOLOGIST 07/25 Cyst ICD-706.2 Inactive Kylie Holt CERTIFIED NUCLEAR MEDICINE TECHNOLOGIST 08/11 Unspecified fall, initial encounter ICD-E888.9 Inactive Kylie Holt CERTIFIED NUCLEAR MEDICINE TECHNOLOGIST Eye pain, left ICD-379.91 Inactive Kylie Holt CERTIFIED NUCLEAR MEDICINE TECHNOLOGIST Medication List Medication Instructions Start Date Stop Date Generic Name NDC Status Provider Patient Instruction VOLTAREN 1 % TRANSDERMAL GEL apply 2 grams q 6-8 hour to left arm as needed for pain DICLOFENAC SODIUM 07102847337 Active Kylie Holt APR N Active IMODIUM A-D 2 MG ORAL TABLET 1 tablet twice a day LOPERAMIDE HCL 15077103192 Active Kylie Holt APRN Active COQ10 100 MG ORAL CAPSULE 1 daily COENZYME Q10 106221 30267 Active LETY Nation Active VITAMIN D3 2000 UNIT ORAL CAPSULE Melaleuca-One daily CHOLECALCIFEROL 75922180505 Active Kylie Holt APRN Active PROBIOTIC DAILY ORAL CAPSULE Take one daily PROBIO TIC PRODUCT 55855849410 Active Kylie Holt APRN Active IRON 325 (65 Fe) MG ORAL TABLET 1 every other day FERROUS SULFATE 48203978894 No Longer Active Kylie Holt APRN Active FLORANEX ORAL PACKET 1 pack three times daily, for bowel health LACTOBACILLUS 00713024199 No Longer Active Kylie Yokum CERTIFIED NUCLEAR MEDICINE TECHNOLOGIST Active LOMOTIL 2.5-0.025 MG ORAL TABLET 1 tab by mouth prn 20 23/10/23 DIPHENOXYLATE-ATROPINE 54534985798 No Longer Active Kylie Yokum CERTIFIED NUCLEAR MEDICINE TECHNOLOGIST Active MAGNESIUM GLUCONATE 250 MG ORAL TABLET 1 tab tid 20 23/10/23 MAGNESIUM GLUCONATE 95324077570 No Longer Active Kylie Yokum CERTIFIED NUCLEAR MEDICINE TECHNOLOGIST Active CYANOCOBALAMIN 1000 MCG/ML INJECTION SOLUTION 1 injection ev ruben 2 weeks CYANOCOBALAMIN 17870795907 No Longer Active Kylie Yok um CERTIFIED NUCLEAR MEDICINE TECHNOLOGIST Active ATENOLOL 25 MG ORAL TABLET 1/2 pill by mouth daily, fo r headaches, blood pressure ATENOLOL 09924709688 Active Kylie Yokum CERTIFIED NUCLEAR MEDICINE TECHNOLOGIST Active PROPRANOLOL HCL 80 MG ORAL TABLET 1 tab tue. and thur. PROPRANOLOL HCL 60309039585 No Longer Active Hope Benavidez MD PhD A ctive VITAMIN D3 4000 IU 1 tab 3 times daily VITAMIN D3 4000 IU No Longer Active Hope Benavidez MD PhD Active BACTRIM DS 800-160 MG ORAL TABLET 1 pill by mouth twice claudio y, for UTI SULFAMETHOXAZOLE-TRIMETHOPRIM 90843673226 No Longer Active Hope Benavidez MD PhD Active PROLIA 60 MG/ML SUBCUTANEOUS SOLUTION 1 shot every 6 months for osteoprosis DENOSUMAB 52902753515 Active Hope Benavidez MD PhD Active CALCIUM + D + K 750-500-40 MG-UNT-MCG ORAL TABLET 1 tab by m out twice daily CALCIUM-VITAMIN D-VITAMIN K 81597217304 Active Hope valdez MD PhD Active DAILY VALUE MULTIVITAMIN ORAL TABLET 1 tab by mouth twice daily 201 05/16/14 MULTIPLE VITAMIN 39216923260 Active Hope Bneavidez MD PhD Acti ve FISH OIL 306 MG CAPS 1 tab by mouth three times daily OMEGA-3 FATTY ACIDS 35991571314 Active Hope Benavidez MD PhD Active LUTEIN 10 MG ORAL TABLET 1 tab daily LUTEIN 89127329 408 Active Hope Benavidez MD PhD Active TRIAMTERENE-HCTZ 37.5-25 MG ORAL TABLET 1 tab by mouth daily 10/22 TRIAMTERENE-HCTZ 55050412548 Active Kylie Holt CERTIFIED NUCLEAR MEDICINE TECHNOLOGIST Active CYCLOBENZAPRINE HCL 10 MG ORAL TABLET 1 [facility] three times daily as needed for headaches CYCLOBENZAPRINE HCL 00002211663 No Longer Active Adam Yates MD Active OMEPRAZOLE 20 MG ORAL CAPSULE DELAYED RELEASE [address] [facility] daily for GERD OMEPRAZOLE 53641163638 No Longer Active Adam Yates MD Active ZOFRAN 8 MG ORAL TABLET 1 tab by mouth every 12 hours prn 4 ONDANSETRON HCL 48966380644 No Longer Active Adam Yates MD Active PHENADOZ 25 MG RECTAL SUPPOSITORY 1 every 4 hrs. PRN 2 PROMETHAZINE HCL 92045499449 No Longer Active Adam Yates MD A ctive POTASSIUM CHLORIDE 20 MEQ ORAL PACKET by mouth twice a day prn 2 POTASSIUM CHLORIDE 12149495156 No Longer Active Adam Carpenter MD Active PROMETHAZINE HCL 25 MG ORAL TABLET 1 Q. 4 hr. PRN PROMETHAZINE HCL 42366902492 No Longer Active Adam Yates MD Active INNOPRAN XL 120 MG ORAL CAPSULE EXTENDED RELEASE 24 HO UR Take one by mouth daily PROPRANOLOL HCL SR BEADS 26277335694 No Longer Active Adam Yates MD Active FLAGYL 500 MG ORAL TABLET 1 pill by mouth three times daily, for diarrhea METRONIDAZOLE 79549695987 No Longer Active Hope landers MD PhD Active DYAZIDE 37.5-25 MG ORAL CAPSULE 1 qd TRIA MTERENE-HCTZ 99628798433 No Longer Active Hope Benavidez MD PhD Active PROZAC 20 MG ORAL CAPSULE 1 q d FLUOXETINE HCL 08002950629 No Longer Active Hope Benavidez MD PhD Active SIMVASTATIN 40 MG ORAL TABLET 1 qd SIMVAS TATIN 63701300745 No Longer Active Adam Yates MD Active MELOXICAM 15 MG ORAL TABLET 1 qd MELOXICAM 25676273861 No Longer Active Adam Yates MD Active EXCEDRIN EXTRA STRENGTH 250-250-65 MG ORAL TABLET 1-2 q6h ME N headache [id number] 84650169033 Active Hope Benavidez MD PhD Active FLAGYL 500 MG ORAL TABLET 1 qid METRONIDAZOL E 00457607536 No Longer Active Adam Yates MD Active LEVAQUIN 750 MG ORAL TABLET 1 qd LEVOFLOXAC IN 74318958308 No Longer Active Adam Yates MD Active ADULT ASPIRIN LOW STRENGTH 81 MG ORAL TABLET DISINTEGRATING 1 qd ASPIRIN 90550608486 Active Hope Benavidez MD PhD Active LEVAQUIN 750 MG ORAL TABLET 1 qd LEVAQUIN 750 MG ORAL TABLET 682808 LEVOFLOXACIN Inactive FLAGYL 500 MG ORAL TABLET 1 qid FLAGYL 500 MG ORAL TABLET 843236 METRONIDAZOLE Inactive MELOXICAM 15 MG ORAL TABLET 1 qd MELOXICAM 15 MG ORAL TABLET 113459 MELOXICAM Inactive SIMVASTATIN 40 MG ORAL TABLET 1 qd SIMVASTATIN 40 MG ORAL TABLET 739767 SIMVASTATIN Inactive PROZAC 20 MG ORAL CAPSULE 1 q d PROZAC 20 MG ORAL CAPSULE 886633 FLUOXETINE HCL Inactive DYAZIDE 37.5-25 MG ORAL CAPSULE 1 qd 5 DYAZIDE 37.5-25 MG ORAL CAPSULE 437810 TRIAMTERENE-HCTZ Inactive INNOPRAN XL 120 MG ORAL CAPSULE EXTENDED RELEASE 24 HO UR Take one by mouth daily INNOPRAN XL 120 MG ORAL CAPSULE EXTENDED RELEASE 24 HOUR PROPRANOLOL HCL SR BEADS Inactive PROMETHAZINE HCL 25 MG ORAL TABLET 1 Q. 4 hr. PRN 2013 PROMETHAZINE HCL 25 MG ORAL TABLET 748868 PROMETHAZINE HCL Inactive POTASSIUM CHLORIDE 20 MEQ ORAL PACKET by mouth twice a day prn 2 POTASSIUM CHLORIDE 20 MEQ ORAL PACKET 1028997 POTASSIUM CHLORIDE Inactive PHENADOZ 25 MG RECTAL SUPPOSITORY 1 every 4 hrs. PRN 2 PHENADOZ 25 MG RECTAL SUPPOSITORY 550638 PROMETHAZINE HCL Inactive ZOFRAN 8 MG ORAL TABLET 1 tab by mouth every 12 hours prn 4 ZOFRAN 8 MG ORAL TABLET 650090 ONDANSETRON HCL Inactive OMEPRAZOLE 20 MG ORAL CAPSULE DELAYED RELEASE 1 tablet by mo [facility] daily for GERD OMEPRAZOLE 20 MG ORAL CAPSULE DELAYED RELEASE 19 8051 OMEPRAZOLE Inactive CYCLOBENZAPRINE HCL 10 MG ORAL TABLET 1 tablet by mout three times daily as needed for headaches CYCLOBENZAPRINE HCL 10 MG ORAL TABLET 831357 CYCLOBENZAPRINE HCL Inactive VITAMIN D3 4000 IU 1 tab 3 times daily VITAMIN D3 4000 IU Inactive PROPRANOLOL HCL 80 MG ORAL TABLET 1 tab tue. and thur. PROPRANOLOL HCL 80 MG ORAL TABLET 338274 PROPRANOLOL HCL Inacti ve CYANOCOBALAMIN 1000 MCG/ML INJECTION SOLUTION 1 injection ev ruben 2 weeks CYANOCOBALAMIN 1000 MCG/ML INJECTION SOLUTION 30 9594 CYANOCOBALAMIN Inactive MAGNESIUM GLUCONATE 250 MG ORAL TABLET 1 tab tid 23/10/23 MAGNESIUM GLUCONATE 250 MG ORAL TABLET 402929 MAGNESIUM GLUCONATE Inactive LOMOTIL 2.5-0.025 MG ORAL TABLET 1 tab by mouth prn 23/10/23 LOMOTIL 2.5-0.025 MG ORAL TABLET 5108393 DIPHENOXYLATE-ATROPINE Inac tive FLORANEX ORAL PACKET 1 pack three times daily, for bowel health FLORANEX ORAL PACKET 98000398779 LACTOBACILLUS Inactive IRON 325 (65 Fe) MG ORAL TABLET 1 every other day 2015 IRON 325 (65 Fe) MG ORAL TABLET 205465 FERROUS SULFATE Inactive FLAGYL 500 MG ORAL TABLET 1 pill by mouth three times daily, for diarrhea FLAGYL 500 MG ORAL TABLET 923284 METRONIDAZOLE I nactive BACTRIM DS 800-160 MG ORAL TABLET 1 pill by mouth twice claudio y, for UTI BACTRIM DS 800-160 MG ORAL TABLET 454782 SULFAMETHOXAZOLE-TRIMETHOPRIM Inactive Advance Directives Directive Description Start [...] ... - Chemistry sodium, serum 141 mmol/L 666-771 2543/01/10 potassium, serum 3.7 mmol/L 3.5-5.2 chloride, serum 101 mmol/L 98-107 carbon dioxide, venous blood 31.0 mmol/L 21.0-32 .0 blood glucose 96 mg/dL 65-95 calcium, serum 9.5 mg/dL 8.5-10.1 urea nitrogen, blood 21 mg/dL 7-18 creatinine, serum 1.40 mg/dL 0.60-1.30 Estimated Glomerular Filtration Rate (calc) 39 (?) mL/min/1.73m2 = OR > 60 mL/min cholesterol, serum 211 mg/dL 289-191 6543/01/10 triglyceride, serum, fasting 77 mg/dL 30-200 HDL cholesterol, serum 70 mg/dL 32-60 LDL cholesterol, serum 126 mg/dL 0-130 TSH 1.19 m[iU]/mL 0.36-3.74 Lab Report: CBC, Basic Metabolic Panel, MICROALB/CREAT W/RATIO, Lipid Pa ... - Hematology hematocrit, blood 43.1 % 37.0-47.0 hemoglobin, blood 14.1 g/dL 12.0-16.0 erythrocyte (RBC) count 4.69 10^6/MM^3 10*6/mm3 3.80-5.8 0 leukocyte count, blood 4.6 10^3/MM^3 10*3/mm3 4.6-10.2 mean corpuscular hemoglobin, RBC 30.1 pg 27. 0-31.2 mean corpuscular volume, RBC 92 fL 80-97 [...] - Chem istry sodium, serum 142 mmol/L 555-784 1978/04/19 carbon dioxide, venous blood 30.2 mmol/L 21.0-32 [...] - Chelle radha sodium, serum 142 mmol/L 206-159 6978/11/02 potassium, serum 3.4 mmol/L 3.5-5.2 chloride, serum [...] mg/dL Encounters Code Encounter Date Provider Facility CPT-53773 [id number] Vst-Est Level IV 19:48:30 CHILD NUTRITION DIRECTOR Tracy jalloh Yanet [facility] CPT-67724 [id number] Vst-Est Level III 14:29:19 CDT Fiorella enrico Yanet [facility] CPT-68382 Level 2 Est. Patient 14:58:26 CDT Kylie Lund [facility] CPT-53813 Level 3 Est. Patient 08:15:24 CHILD NUTRITION DIRECTOR Kylie Lund [facility] CPT-31517 Level 2 Est. Patient 14:27:16 CHILD NUTRITION DIRECTOR Kylie Lund [facility] CPT-35313 Level 3 Est. Patient 17:54:48 CDT [facility]40 Level 3 Est. Patient 16:26:30 CDT Kina blackmon [facility] CPT-70810 Level 3 New Patient 16:22:01 CHILD NUTRITION DIRECTOR Adam Yates MD [facility] CPT-12281 Level 4 Est. Patient 17:00:48 CDT Kylie Lund [facility] CPT-22800 Level 3 Est. Patient 13:15:54 CDT Kylie Lund [facility] CPT-07907 Level 3 Est. Patient 09:10:11 CDT Kylie Lund [facility] CPT-97039 Level 4 Est. Patient 12:08:30 CHILD NUTRITION DIRECTOR Hope cohn MD [facility] CPT-24465 Level 4 Est. Patient 19:08:42 CHILD NUTRITION DIRECTOR Hope cohn MD [facility] CPT-38454 Level 4 Est. Patient 20:04:51 CDT Hope cohn MD [facility] CPT-56143 Level 3 New Patient 01:46:11 CHILD NUTRITION DIRECTOR Hope landers MD [facility] Procedures Code Procedure Name Date Entry Date Standard Desc ription CPT-43651 Sono Soft Tissue Head and Neck - XRAY US E ONLY 11:56:06 CHILD NUTRITION DIRECTOR CPT-83621 Abx/Therapy Injection 09:40:08 CHILD NUTRITION DIRECTOR CPT-J0897 Prolia 60 mg 09:40:08 CHILD NUTRITION DIRECTOR CPT-16927 First Vx - Ix admin for Medicare patients 02/08 10:02:45 CDT CPT-28117 Fluzone Quadrivalent Intramuscular Suspe nsion 0.5 ML 10:02:45 CDT CPT-21828 Magnesium - LAB USE ONLY 09:41:00 CDT 12/09 CPT-51407 Renal Panel - LAB USE ONLY 09:41:00 CDT 201 09/17/01 CPT-70997 Venipuncture Draw Fee 09:41:00 CDT CPT-27419 Calcium - LAB USE ONLY 17:25:11 CDT CPT-J0897 Prolia 60 mg 15:10:59 CDT CPT-30754 Abx/Therapy Injection 15:10:59 CDT CPT-G0439 [facility] Annual Wellness Exam 14:29:19 CDT CPT-35464 Venipuncture Draw Fee 10:59:04 CDT CPT-66828 CMP - LAB USE ONLY 10:59:04 CDT CPT-51715 CBC with Diff - LAB USE ONLY 10:59:03 CDT 2 CPT-J0897 Prolia 60 mg 15:46:54 CHILD NUTRITION DIRECTOR CPT-48623 Abx/Therapy Injection 15:46:54 CHILD NUTRITION DIRECTOR CPT-93152 Microalbumin - LAB USE ONLY 09:41:32 CHILD NUTRITION DIRECTOR 20 23/01/15 CPT-10263 Free T4 - LAB USE ONLY 09:41:32 CHILD NUTRITION DIRECTOR CPT-69607 TSH - LAB USE ONLY 09:41:32 CHILD NUTRITION DIRECTOR CPT-77467 BMP - LAB USE ONLY 09:41:32 CHILD NUTRITION DIRECTOR CPT-27398 Venipuncture Draw Fee 09:41:32 CHILD NUTRITION DIRECTOR CPT-81913 First Vx - Ix admin for Medicare patients 11:19:30 CDT CPT-92515 Fluzone High-Dose Intramuscular Suspension 12/07 11:19:30 CDT CPT-J0897 Prolia 60 mg 14:55:42 CDT CPT-69027 Abx/Therapy Injection 14:55:42 CDT CPT-88750 Bone Density - XRAY USE ONLY 10:27:12 CDT 2 CPT-G0439 [facility] Subsequent Annual Wellness Exam 17:54:53 CDT CPT-79864 Foot, left, comp min 3V - XRAY USE ONLY 12:22:49 CDT CPT-G0009 Administration of Pneumococcal Vaccine 3 12:18:00 CDT CPT-38319 Pneumovax 23 Injection Injectable 25 MCG /0.5ML 12:18:00 CDT CPT-J0897 Prolia 60 mg 14:14:16 CHILD NUTRITION DIRECTOR CPT-18607 Abx/Therapy Injection 14:14:15 CHILD NUTRITION DIRECTOR CPT-00400 Lipid - LAB USE ONLY 10:01:52 CHILD NUTRITION DIRECTOR 2 CPT-28278 Calcium - LAB USE ONLY 10:01:51 CHILD NUTRITION DIRECTOR CPT-08174 Venipuncture Draw Fee 10:01:51 CHILD NUTRITION DIRECTOR CPT-LR Lesion Removal 16:22:01 CHILD NUTRITION DIRECTOR CPT-78183 TSH - LAB USE ONLY 14:26:02 CDT CPT-72731 CMP - LAB USE ONLY 14:26:01 CDT CPT-92526 CBC with Diff - LAB USE ONLY 14:26:01 CDT 2 CPT-18039 Venipuncture Draw Fee 14:26:01 CDT CPT-08665 First Vx - Ix admin for Medicare patients 13:27:08 CDT CPT-63556 Fluzone High-Dose Intramuscular Suspension 11/26 13:27:08 CDT CPT-G0438 Initial Annual Wellness Exam 14:19:57 CD T CPT-G0009 Administration of Pneumococcal Vaccine 9 11:36:25 CDT CPT-34044 Prevnar 13 Intramuscular Suspension 1 1:36:25 CDT CPT-16438 Prevnar 13 Intramuscular Suspension 1 0:40:58 CDT CPT-J0897 Prolia 60 mg 10:37:16 CDT CPT-75553 Abx/Therapy Injection 10:37:16 CDT CPT-J0897 Prolia 60 mg 16:09:34 CHILD NUTRITION DIRECTOR CPT-J0897 Prolia 60 mg 11:10:35 CHILD NUTRITION DIRECTOR CPT-67506 Abx/Therapy Injection 11:10:35 CHILD NUTRITION DIRECTOR CPT-000 Give Appropriate Flu Vaccine 17:01:15 CHILD NUTRITION DIRECTOR 2 CPT-67994 Fluzone High Dose (65+) 15:03:08 CHILD NUTRITION DIRECTOR 02/15 CPT-72469 Immunization Single Admin 15:03:08 CHILD NUTRITION DIRECTOR 2014 CPT-OV Office Visit 15:58:06 CDT CPT-J0897 Prolia 60 mg 08:45:38 CDT CPT-20488 Abx/Therapy Injection 08:45:38 CDT CPT-J3420 Vitamin B12 1000mcg (Cyanocobalamin) 09:26:20 CHILD NUTRITION DIRECTOR CPT-48831 Abx/Therapy Injection 09:26:20 CHILD NUTRITION DIRECTOR CPT-J3420 Vitamin B12 1000mcg (Cyanocobalamin) 09:44:40 CHILD NUTRITION DIRECTOR CPT-23123 Abx/Therapy Injection 09:44:40 CHILD NUTRITION DIRECTOR CPT-J3420 Vitamin B12 1000mcg (Cyanocobalamin) 09:15:54 CHILD NUTRITION DIRECTOR CPT-06426 Abx/Therapy Injection 09:15:54 CHILD NUTRITION DIRECTOR CPT-J3420 Vitamin B12 1000mcg (Cyanocobalamin) 09:46:44 CHILD NUTRITION DIRECTOR CPT-25971 Abx/Therapy Injection 09:46:44 CHILD NUTRITION DIRECTOR CPT-J3420 Vitamin B12 1000mcg (Cyanocobalamin) 09:47:34 CHILD NUTRITION DIRECTOR CPT-48567 Abx/Therapy Injection 09:47:34 CHILD NUTRITION DIRECTOR CPT-J3420 Vitamin B12 1000mcg (Cyanocobalamin) 14:35:50 CHILD NUTRITION DIRECTOR CPT-J3420 Vitamin B12 1000mcg (Cyanocobalamin) 09:25:05 CHILD NUTRITION DIRECTOR CPT-82631 Abx/Therapy Injection 09:25:05 CHILD NUTRITION DIRECTOR CPT-G0008 Administration of Influenza Virus Vaccine 13:36:47 CDT CPT-64043 Fluzone High-Dose Intramuscular Suspension 11/15 13:36:47 CDT CPT-J0897 Prolia 60 mg 08:50:41 CDT CPT-00824 Abx/Therapy Injection 08:50:41 CDT CPT-32356 Bone Density 12:06:12 CDT CPT-55301 Bone Density 08:54:40 CDT CPT-OV Office Visit 15:37:02 CDT CPT-41301 Postop F/U Visit 15:47:49 CDT CPT-10452 Postop F/U Visit 15:21:02 CDT CPT-TCMH Transitional Care Mgmt-High 07:52:27 CDT 20 20/06/01 CPT-30609 Venipuncture Draw Fee 13:51:18 CDT CPT-22427 Venipuncture Draw Fee 10:14:55 CHILD NUTRITION DIRECTOR CPT-17653 Venipuncture Draw Fee 13:39:45 CHILD NUTRITION DIRECTOR CPT-OV Office Visit 15:11:22 CHILD NUTRITION DIRECTOR CPT-02656 Venipuncture Draw Fee 09:20:49 CHILD NUTRITION DIRECTOR CPT-92539 Venipuncture Draw Fee 16:52:15 CHILD NUTRITION DIRECTOR CPT-47830 Venipuncture Draw Fee 10:37:24 CHILD NUTRITION DIRECTOR CPT-24471 Venipuncture Draw Fee 08:21:21 CHILD NUTRITION DIRECTOR CPT-50105 Venipuncture Draw Fee 08:30:20 CHILD NUTRITION DIRECTOR CPT-77569 Venipuncture Draw Fee 14:53:21 CHILD NUTRITION DIRECTOR CPT-50461 Venipuncture Draw Fee 09:40:56 CHILD NUTRITION DIRECTOR CPT-20150 Venipuncture Draw Fee 10:30:47 CHILD NUTRITION DIRECTOR CPT-13512 Venipuncture Draw Fee 10:46:17 CHILD NUTRITION DIRECTOR CPT-82686 Venipuncture Draw Fee 11:12:45 CHILD NUTRITION DIRECTOR CPT-98253 Venipuncture Draw Fee 09:53:33 CHILD NUTRITION DIRECTOR CPT-48559 Venipuncture Draw Fee 11:53:51 CHILD NUTRITION DIRECTOR CPT-62939 Venipuncture Draw Fee 10:33:50 CHILD NUTRITION DIRECTOR CPT-27695 Venipuncture Draw Fee 10:05:01 CHILD NUTRITION DIRECTOR CPT-53974 Venipuncture Draw Fee 14:32:52 CHILD NUTRITION DIRECTOR CPT-64097 Venipuncture Draw Fee 09:46:13 CHILD NUTRITION DIRECTOR CPT-76419 Venipuncture Draw Fee 11:34:27 CHILD NUTRITION DIRECTOR CPT-75926 Venipuncture Draw Fee 13:17:16 CHILD NUTRITION DIRECTOR CPT-07347 Venipuncture Draw Fee 12:05:39 CDT CPT-90464 Venipuncture Draw Fee 12:49:12 CDT CPT-06531 Venipuncture Draw Fee 12:37:18 CDT CPT-34685 Venipuncture Draw Fee 10:57:11 CDT CPT-95541 Venipuncture Draw Fee 13:47:40 CDT CPT-19233 Venipuncture Draw Fee 10:02:17 CDT CPT-86029 TB Tubersol 17:32:32 CDT CPT-OV Office Visit 16:21:53 CDT CPT-OV Office Visit 15:49:22 CDT CPT-OV Office Visit 17:16:31 CDT CPT-OV Office Visit 10:43:31 CDT
--- OUTSIDE RECORDS SUMMARY | 2019-02-09 12:25 | XMS REPORT | Clinical Summary ---
Author Author Admin, Florecita uMnoz Organization [facility] [employer] Address Unknown Phone Unavailable Allergies, Adverse Reactions, [...] Sebaceous cyst, scalp 706.2 Resolved Kylie Yokum PRODUCTION STAGE MANAGER Sebaceous cyst Cervical lymphadenopathy, anterior, left 785.6 Resolv ed Kylie Yokum PRODUCTION STAGE MANAGER Enlargement of lymph nodes Need for prophylactic vaccination and inoculation against in fluenza V04.81 Resolved Adam Yates MD Need for prophylactic vaccination and inoculation against influenza Preventive health care V70.0 Active Kylie Yokum PRODUCTION STAGE MANAGER Routine general medical examination at a health care facility Thyroid nodule, left 241.0 Active Kylie Yokum A PRN Nontoxic uninodular goiter Screening mammogram V76.12 Active Kylie Yogabbium AP RN Other screening mammogram Mandy 706.2 Resolved Kylie Yokum PRODUCTION STAGE MANAGER Sebaceous cyst Colon cancer, ascending 153.6 Resolved Kylie Yok um PRODUCTION STAGE MANAGER Malignant neoplasm of ascending colon Foot pain, left 729.5 Active 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 Pain in limb Splinter 919.6 Active Kylie Yokum PRODUCTION STAGE MANAGER Superficial foreign body (splinter) of other, multiple, and unspecified sites, without major open wound and without mention of infection ABDOMINAL PAIN, RIGHT LOWER QUADRANT ICD-789.03 Inactive Kina Joshua PRODUCTION STAGE MANAGER ADENOCARCINOMA, COLON, 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 Dick Yates MD ABDOMINAL PAIN, GENERALIZED ICD-789.07 Inactive Hope Benavidez MD PhD FEVER UNSPECIFIED ICD-780.60 Inactive Hope cohn MD PhD UNSPECIFIED VENOUS INSUFFICIENCY ICD-459.81 [place] ctive Adam Yates MD ADENOCARCINOMA, 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 Inac tive Hope Benavidez MD PhD Hyperkalemia ICD-276.7 Inactive Hope Benavidez MD PhD GERD ICD-530.81 Inactive Kylie Holt PRODUCTION STAGE MANAGER 2015 Health maintenance exam ICD-V70.0 Inactive Adolfo Yates MD Anemia ICD-285.9 Inactive Kylie Lundum PRODUCTION STAGE MANAGER 07/24 Hypomagnesemia ICD-275.2 Inactive Kylie Holt PRODUCTION STAGE MANAGER Weakness ICD-780.79 Inactive Hope Benavidez MD [...] MD Sebaceous cyst, scalp ICD-706.2 Inactive Tracy Lundum PRODUCTION STAGE MANAGER Cervical lymphadenopathy, anterior, left ICD-785.6 Inactive Kylie Lundum PRODUCTION STAGE MANAGER Need for prophylactic vaccination and inoculation against in fluenza ICD-V04.81 Inactive Adam Yates MD Mandy ICD-706.2 Inactive Kylie Lundum PRODUCTION STAGE MANAGER 07/20 Colon cancer, ascending ICD-153.6 Inactive K umang Lundum PRODUCTION STAGE MANAGER Colon cancer ICD-153.9 Inactive Adam luna MD Medication List Medication Instructions Start Date Stop Date Generic Name NDC Status Provider Patient Instruction COQ10 100 MG ORAL CAPS 1 daily COENZYME Q10 033193364 20 Active LETY Nation Active VITAMIN D3 2000 UNIT ORAL CAPS Melaleuca-One daily CHOLECALCIFEROL 22287083226 Active Kylie Lundum PRODUCTION STAGE MANAGER Active PROBIOTIC DAILY ORAL CAPS Take one daily PROBIOTIC PRODUCT 79841163945 Active Kylie Escalonakum PRODUCTION STAGE MANAGER Active IRON 325 (65 FE) MG TABS 1 every other day FERR OUS SULFATE 42000317515 No Longer Active Kylie Yokum PRODUCTION STAGE MANAGER Active FLORANEX PACK 1 pack three times daily, for bowel health LACTOBACILLUS 38525460312 No Longer Active Kylie Lundum PRODUCTION STAGE MANAGER Active LOMOTIL 2.5-0.025 MG TABS 1 tab by mouth prn 4 DIPHENOXYLATE-ATROPINE 37862274172 No Longer Active Kylie Yokum PRODUCTION STAGE MANAGER Active MAGNESIUM GLUCONATE 250 MG TABS 1 tab tid 4 MAGNESIUM GLUCONATE 27565225224 No Longer Active Kylie Yokum PRODUCTION STAGE MANAGER Active CYANOCOBALAMIN 1000 MCG/ML INJ SOLN 1 injection every 2 weeks 20 20/01/03 CYANOCOBALAMIN 15639602477 No Longer Active Kylie Yokum PRODUCTION STAGE MANAGER Active ATENOLOL 25 MG ORAL TABS 1/2 pill by mouth daily, for headac hes, blood pressure ATENOLOL 09206709376 Active Kylie Yanet PRODUCTION STAGE MANAGER Active PROPRANOLOL HCL 80 MG TABS 1 tab tue. and thur. 04/10 PROPRANOLOL HCL 08195085641 No Longer Active Hope Benavidez MD PhD A ctive VITAMIN D3 4000 IU 1 tab 3 times daily VITAMIN D3 4000 IU No Longer Active Hope Benavidez MD PhD Active BACTRIM DS 800-160 MG TABS 1 pill by mouth twice daily, for UTI SULFAMETHOXAZOLE-TRIMETHOPRIM 90893051623 No Longer Active A attila Benavidez MD PhD Active PROLIA 60 MG/ML SOLN 1 shot every 6 months for osteoprosis DENOSUMAB 60312437013 Active Hope Benavidez MD PhD Active CALCIUM + D + K 750-500-40 MG-UNT-MCG TABS 1 tab by mouth tw ice daily CALCIUM-VITAMIN D-VITAMIN K 67960507472 Active Hope landers MD PhD Active DAILY VALUE MULTIVITAMIN TABS 1 tab by mouth twice daily MULTIPLE VITAMIN 91885033005 Active Hope Benavidez MD PhD Active FISH OIL 306 MG CAPS 1 tab by mouth three times daily OMEGA-3 FATTY ACIDS 27422378606 Active Hope Benavidez MD PhD Active LUTEIN 10 MG TABS 1 tab daily LUTEIN 26388762715 Act cash Hope Benavidez MD PhD Active TRIAMTERENE-HCTZ 37.5-25 MG TABS 1 tab by mouth daily TRIAMTERENE-HCTZ 62797620436 Active Kylie Holt APRN Active CYCLOBENZAPRINE HCL 10 MG TABS 1 tablet by mouth three times daily as needed for headaches CYCLOBENZAPRINE HCL 69702136894 No Longe r Active Adam Yates MD Active OMEPRAZOLE 20 MG CPDR 1 tablet by mouth daily for GERD OMEPRAZOLE 35362065833 No Longer Active Adam Yates MD A ctive ZOFRAN 8 MG TABS 1 tab by mouth every 12 hours prn 201 05/16/09 ONDANSETRON HCL 34334704716 No Longer Active Adam Yates MD Active PHENADOZ 25 MG SUPP 1 every 4 hrs. PRN PROMETHA ZINE HCL 37077795230 No Longer Active Adam Yates MD Active POTASSIUM CHLORIDE 20 MEQ PACK by mouth twice a day prn POTASSIUM CHLORIDE 15962100001 No Longer Active Adam Yates MD Active PROMETHAZINE HCL 25 MG TABS 1 Q. 4 hr. PRN PROM ETHAZINE HCL 34955981630 No Longer Active Adam Yates MD Active INNOPRAN XL 120 MG [id number] Take one by mouth daily 2 PROPRANOLOL HCL SR BEADS 54119906802 No Longer Active Adam Yates MD A ctive FLAGYL 500 MG TABS 1 pill by mouth three times daily, for diarrh ea METRONIDAZOLE 88425221793 No Longer Active Hope Benavidez MD PhD Active DYAZIDE 37.5-25 MG CAPS 1 qd TRIAMTERENE-HC TZ 94183795479 No Longer Active Hope Benavidez MD PhD Active PROZAC 20 MG CAPS 1 q d FLUOXETINE HCL 33590 868632 No Longer Active Hope Benavidez MD PhD Active SIMVASTATIN 40 MG TABS 1 qd SIMVASTATIN 004 75877581 No Longer Active Adam Yates MD Active MELOXICAM 15 MG TABS 1 qd MELOXICAM 3702428 0560 No Longer Active Adam Yates MD Active IMODIUM A-D 2 MG TABS 2 onset at diarrhea and prn. LOPERAMIDE HCL 51231308343 Active Hope Benavidez MD PhD Active EXCEDRIN EXTRA STRENGTH 250-250-65 MG TABS 1-2 q6h PRN headache 201 04/16/21 [id number] 71375941537 Active Hope Benavidez MD PhD Active FLAGYL 500 MG TABS 1 qid METRONIDAZOLE 15033 936030 No Longer Active Adam Yates MD Active LEVAQUIN 750 MG TABS 1 qd LEVOFLOXACIN 5486 0240557 No Longer Active Adam Yates MD Active ADULT ASPIRIN LOW STRENGTH 81 MG TBDP 1 qd A SPIRIN 83962005624 Active Hope Benavidez MD PhD Active LEVAQUIN 750 MG TABS 1 qd LEVAQUIN 750 MG T ABS 695096 LEVOFLOXACIN Inactive FLAGYL 500 MG TABS 1 qid FLAGYL 500 MG TABS 783694 METRONIDAZOLE Inactive MELOXICAM 15 MG TABS 1 qd MELOXICAM 15 MG T ABS 215107 MELOXICAM Inactive SIMVASTATIN 40 MG TABS 1 qd SIMVASTATIN 40 MG TABS 307881 SIMVASTATIN Inactive PROZAC 20 MG CAPS 1 q d PROZAC 20 MG CAPS 31 0385 FLUOXETINE HCL Inactive DYAZIDE 37.5-25 MG CAPS 1 qd DYAZIDE 37.5 -25 MG CAPS 152907 TRIAMTERENE-HCTZ Inactive INNOPRAN XL 120 MG [id number] Take one by mouth daily 2 INNOPRAN XL 120 MG [id number] PROPRANOLOL HCL SR BEADS Inactive PROMETHAZINE HCL 25 MG TABS 1 Q. 4 hr. PRN PROMETHAZINE HCL 25 MG TABS 617907 PROMETHAZINE HCL Inactive POTASSIUM CHLORIDE 20 MEQ PACK by mouth twice a day prn POTASSIUM CHLORIDE 20 MEQ PACK 0341176 POTASSIUM CHLORIDE Inactive PHENADOZ 25 MG SUPP 1 every 4 hrs. PRN PHENADOZ 2 5 MG SUPP 191798 PROMETHAZINE HCL Inactive ZOFRAN 8 MG TABS 1 tab by mouth every 12 hours prn 201 05/16/09 ZOFRAN 8 MG TABS 727711 ONDANSETRON HCL Inactive OMEPRAZOLE 20 MG CPDR 1 tablet by mouth daily for GERD OMEPRAZOLE 20 MG CPDR 957512 OMEPRAZOLE Inactive CYCLOBENZAPRINE HCL 10 MG TABS 1 tablet by mouth three times daily as needed for headaches CYCLOBENZAPRINE HCL 10 MG TABS 968388 CYCLOBENZAPRINE HCL Inactive VITAMIN D3 4000 IU 1 tab 3 times daily VITAMIN D3 4000 IU Inactive PROPRANOLOL HCL 80 MG TABS 1 tab tue. and thur. 04/10 PROPRANOLOL HCL 80 MG TABS 326535 PROPRANOLOL HCL Inactive CYANOCOBALAMIN 1000 MCG/ML INJ SOLN 1 injection every 2 weeks 20 20/01/03 CYANOCOBALAMIN 1000 MCG/ML INJ SOLN 373990 CYANOCOBALAM IN Inactive MAGNESIUM GLUCONATE 250 MG TABS 1 tab tid 4 MAGNESIUM GLUCONATE 250 MG TABS 120748 MAGNESIUM GLUCONATE Inactive LOMOTIL 2.5-0.025 MG TABS 1 tab by mouth prn 4 LOMOTIL 2.5- 0.025 MG TABS 9472789 DIPHENOXYLATE-ATROPINE Inactive FLORANEX PACK 1 pack three times daily, for bowel health FLORANEX PACK LACTOBACILLUS Inactive IRON 325 (65 FE) MG TABS 1 every other day IRON 325 (65 FE) MG TABS 680588 FERROUS SULFATE Inactive FLAGYL 500 MG TABS 1 pill by mouth three times daily, for diarrh ea FLAGYL 500 MG TABS 651115 METRONIDAZOLE Inactive BACTRIM DS 800-160 MG TABS 1 pill by mouth twice daily, for UTI BACTRIM DS 800-160 MG TABS 583266 SULFAMETHOXAZOLE-TRIM ETHOPRIM Inactive Advance Directives Directive Description [...] 11 .0-15.0 platelet count 157 THOUSAND/UL 10*3/mm3 956-663 0800/04/20 mean platelet volume 8.9 fL 7.5-12.5 Lab Report: CEA - Serology carcinoembryonic antigen 0.9 ng/mL Lab Report: Lipid Panel, Calcium - Chemi stry cholesterol, serum 200 mg/dL 248-902 8525/11/22 triglyceride, serum, fasting 129 mg/dL 30-200 HDL cholesterol, serum 56 mg/dL 32-96 LDL cholesterol, serum 118 mg/dL 0-130 calcium, serum 9.0 mg/dL 8.5-10.1 Lab Report: MicroAlb Random w/creat/6517 - Urinalysis microalbumin/total urine volume 8 mg/L Units converted. See lab report for original value. microalbumin/creatinine ratio, urine 15 MCG/MG CREAT mg/L <30 Encounters Code Encounter Date Provider Facility CPT-80602 Level 3 Est. Patient 17:54:48 CDT Kylie boyd [facility] CPT-69390 Level 3 Est. Patient 16:26:30 CDT Kina blackmon [facility] CPT-71490 Level 3 New Patient 16:22:01 TAPE CALENDER Adam Yates MD [facility] CPT-10225 Level 4 Est. Patient 17:00:48 CDT Kylie boyd [facility] CPT-05650 Level 3 Est. Patient 13:15:54 CDT Kylie Lund [facility] [place] CPT-06494 Level 3 Est. Patient 09:10:11 CDT Kylie Lund [facility] CPT-61365 Level 4 Est. Patient 12:08:30 TAPE CALENDER Hope cohn MD [facility] CPT-09183 Level 4 Est. Patient 19:08:42 TAPE CALENDER Hope cohn MD [facility] CPT-68529 Level 4 Est. Patient 20:04:51 CDT Hope cohn MD [facility] CPT-65496 Level 3 New Patient 01:46:11 TAPE CALENDER Hope landers MD [facility] Procedures Code Procedure Name Date Entry Date Standard Desc ription CPT-05336 First Vx - Ix admin for Medicare patients 11:19:30 CDT CPT-88791 Fluzone High-Dose Intramuscular Suspension 12/07 11:19:30 CDT CPT-J0897 Prolia 60 mg 14:55:42 CDT CPT-70313 Abx/Therapy Injection 14:55:42 CDT CPT-83914 Bone Density - XRAY USE ONLY 10:27:12 CDT 2 CPT-G0439 Subsequent Annual Wellness Exam 17:54:53 CDT CPT-12354 Foot, left, comp min 3V - XRAY USE ONLY 12:22:49 CDT CPT-G0009 Administration of Pneumococcal Vaccine 3 12:18:00 CDT CPT-10303 Pneumovax 23 Injection Injectable 25 MCG /0.5ML 12:18:00 CDT CPT-J0897 Prolia 60 mg 14:14:16 TAPE CALENDER CPT-70173 Abx/Therapy Injection 14:14:15 TAPE CALENDER CPT-15593 Lipid - LAB USE ONLY 10:01:52 TAPE CALENDER 2 CPT-81516 Calcium - LAB USE ONLY 10:01:51 TAPE CALENDER CPT-19773 Venipuncture Draw Fee 10:01:51 TAPE CALENDER CPT-LR Lesion Removal 16:22:01 TAPE CALENDER CPT-60186 TSH - LAB USE ONLY 14:26:02 CDT CPT-10263 CMP - LAB USE ONLY 14:26:01 CDT CPT-50546 CBC with Diff - LAB USE ONLY 14:26:01 CDT 2 CPT-72124 Venipuncture Draw Fee 14:26:01 CDT CPT-59096 First Vx - Ix admin for Medicare patients 13:27:08 CDT CPT-91115 Fluzone High-Dose Intramuscular Suspension 11/26 13:27:08 CDT CPT-G0438 Initial Annual Wellness Exam 14:19:57 CD T CPT-G0009 Administration of Pneumococcal Vaccine 9 11:36:25 CDT CPT-70039 Prevnar 13 Intramuscular Suspension 1 1:36:25 CDT CPT-84707 Prevnar 13 Intramuscular Suspension 1 0:40:58 CDT CPT-J0897 Prolia 60 mg 10:37:16 CDT CPT-18757 Abx/Therapy Injection 10:37:16 CDT CPT-J0897 Prolia 60 mg 16:09:34 TAPE CALENDER CPT-J0897 Prolia 60 mg 11:10:35 TAPE CALENDER CPT-29579 Abx/Therapy Injection 11:10:35 TAPE CALENDER CPT-000 Give Appropriate Flu Vaccine 17:01:15 TAPE CALENDER 2 CPT-58227 Fluzone High Dose (65+) 15:03:08 TAPE CALENDER 02/15 CPT-78893 Immunization Single Admin 15:03:08 TAPE CALENDER 2014 CPT-OV Office Visit 15:58:06 CDT CPT-J0897 Prolia 60 mg 08:45:38 CDT CPT-30102 Abx/Therapy Injection 08:45:38 CDT CPT-J3420 Vitamin B12 1000mcg (Cyanocobalamin) 09:26:20 TAPE CALENDER CPT-09529 Abx/Therapy Injection 09:26:20 TAPE CALENDER CPT-J3420 Vitamin B12 1000mcg (Cyanocobalamin) 09:44:40 TAPE CALENDER CPT-85296 Abx/Therapy Injection 09:44:40 TAPE CALENDER CPT-J3420 Vitamin B12 1000mcg (Cyanocobalamin) 09:15:54 TAPE CALENDER CPT-63535 Abx/Therapy Injection 09:15:54 TAPE CALENDER CPT-J3420 Vitamin B12 1000mcg (Cyanocobalamin) 09:46:44 TAPE CALENDER CPT-59431 Abx/Therapy Injection 09:46:44 TAPE CALENDER CPT-J3420 Vitamin B12 1000mcg (Cyanocobalamin) 09:47:34 TAPE CALENDER CPT-90665 Abx/Therapy Injection 09:47:34 TAPE CALENDER CPT-J3420 Vitamin B12 1000mcg (Cyanocobalamin) 14:35:50 TAPE CALENDER CPT-J3420 Vitamin B12 1000mcg (Cyanocobalamin) 09:25:05 TAPE CALENDER CPT-14380 Abx/Therapy Injection 09:25:05 TAPE CALENDER CPT-G0008 Administration of Influenza Virus Vaccine 13:36:47 CDT CPT-03747 Fluzone High-Dose Intramuscular Suspension 11/15 13:36:47 CDT CPT-J0897 Prolia 60 mg 08:50:41 CDT CPT-89840 Abx/Therapy Injection 08:50:41 CDT CPT-61542 Bone Density 12:06:12 CDT CPT-51708 Bone Density 08:54:40 CDT CPT-OV Office Visit 15:37:02 CDT CPT-07400 Postop F/U Visit 15:47:49 CDT CPT-29654 Postop F/U Visit 15:21:02 CDT CPT-[facility] Transitional Care Mgmt-High 07:52:27 CDT 20 20/06/01 CPT-48152 Venipuncture Draw Fee 13:51:18 CDT CPT-85557 Venipuncture Draw Fee 10:14:55 TAPE CALENDER CPT-91012 Venipuncture Draw Fee 13:39:45 TAPE CALENDER CPT-OV Office Visit 15:11:22 TAPE CALENDER CPT-95015 Venipuncture Draw Fee 09:20:49 TAPE CALENDER CPT-81177 Venipuncture Draw Fee 16:52:15 TAPE CALENDER CPT-45473 Venipuncture Draw Fee 10:37:24 TAPE CALENDER CPT-35035 Venipuncture Draw Fee 08:21:21 TAPE CALENDER CPT-05982 Venipuncture Draw Fee 08:30:20 TAPE CALENDER CPT-34457 Venipuncture Draw Fee 14:53:21 TAPE CALENDER CPT-70505 Venipuncture Draw Fee 09:40:56 TAPE CALENDER CPT-82596 Venipuncture Draw Fee 10:30:47 TAPE CALENDER CPT-18163 Venipuncture Draw Fee 10:46:17 TAPE CALENDER CPT-36107 Venipuncture Draw Fee 11:12:45 TAPE CALENDER CPT-53929 Venipuncture Draw Fee 09:53:33 TAPE CALENDER CPT-21367 Venipuncture Draw Fee 11:53:51 TAPE CALENDER CPT-88762 Venipuncture Draw Fee 10:33:50 TAPE CALENDER CPT-81790 Venipuncture Draw Fee 10:05:01 TAPE CALENDER CPT-40011 Venipuncture Draw Fee 14:32:52 TAPE CALENDER CPT-88190 Venipuncture Draw Fee 09:46:13 TAPE CALENDER CPT-34337 Venipuncture Draw Fee 11:34:27 TAPE CALENDER CPT-36823 Venipuncture Draw Fee 13:17:16 TAPE CALENDER CPT-14595 Venipuncture Draw Fee 12:05:39 CDT CPT-72734 Venipuncture Draw Fee 12:49:12 CDT CPT-48232 Venipuncture Draw Fee 12:37:18 CDT CPT-15143 Venipuncture Draw Fee 10:57:11 CDT CPT-27171 Venipuncture Draw Fee 13:47:40 CDT CPT-99093 Venipuncture Draw Fee 10:02:17 CDT CPT-19362 TB Tubersol 17:32:32 CDT CPT-OV Office Visit 16:21:53 CDT CPT-OV Office Visit 15:49:22 CDT CPT-OV Office Visit 17:16:31 CDT CPT-OV Office Visit 10:43:31 CDT
--- OUTSIDE RECORDS SUMMARY | 2019-02-09 12:25 | XMS REPORT | Clinical Summary ---
Author Author Renaldo, Florecita Munoz Organization [facility] [employer] Address Unknown Phone Unavailable Allergies, Adverse Reactions, [...] PhD Hyperpotassemia GERD 530.81 Resolved Kylie Yokum CHILDREN'S NURSERY ASSISTANT Esophageal reflux Health maintenance exam V70.0 Resolved Adolfo Yates MD Routine general medical examination at a health care facility Anemia 285.9 Resolved Kylie Holt CHILDREN'S NURSERY ASSISTANT Anemia, unspecified Personal history of malignant [...] Sebaceous cyst, scalp 706.2 Resolved Kylie Holt CHILDREN'S NURSERY ASSISTANT Sebaceous cyst Cervical lymphadenopathy, anterior, left 785.6 Resolv ed Kylie Holt CHILDREN'S NURSERY ASSISTANT Enlargement of lymph nodes Need for prophylactic vaccination and inoculation against in fluenza V04.81 Resolved Adam Yates MD Need for prophylactic vaccination and inoculation against influenza Preventive health care V70.0 Active Kylie Holt CHILDREN'S NURSERY ASSISTANT Routine general medical examination at a health care facility Thyroid nodule, left 241.0 Active Kylie Gonzalez PRN Nontoxic uninodular goiter Screening mammogram V76.12 Active Kylie Holt AP RN Other screening mammogram Mandy 706.2 Active Adam Yates MD Sebaceous cyst Colon cancer, ascending 153.6 Active Kelsy F aux RMA Malignant neoplasm of ascending colon ABDOMINAL PAIN, RIGHT LOWER QUADRANT ICD-789.03 Inactive Kina Josuha CHILDREN'S NURSERY ASSISTANT ADENOCARCINOMA, COLON, 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 Dick Yates MD ABDOMINAL PAIN, GENERALIZED ICD-789.07 Inactive Hope Benavidez MD PhD FEVER UNSPECIFIED ICD-780.60 Inactive Hope cohn MD PhD UNSPECIFIED VENOUS INSUFFICIENCY ICD-459.81 [place] ctive Adam Yates MD ADENOCARCINOMA, 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 Inac abdelrahman Benavidez MD PhD Hyperkalemia ICD-276.7 Inactive Hope Benavidez MD PhD GERD ICD-530.81 Inactive Kylie Holt CHILDREN'S NURSERY ASSISTANT 2015 Health maintenance exam ICD-V70.0 Inactive Adolfo Yates MD Anemia ICD-285.9 Inactive Kylie Holt CHILDREN'S NURSERY ASSISTANT 07/24 Weakness ICD-780.79 Inactive Hope Benavidez MD [...] Sebaceous cyst, scalp ICD-706.2 Inactive Tracy Holt CHILDREN'S NURSERY ASSISTANT Cervical lymphadenopathy, anterior, left ICD-785.6 Inactive Kylie Holt CHILDREN'S NURSERY ASSISTANT Need for prophylactic vaccination and inoculation against in fluenza ICD-V04.81 Bam Yates MD Medication List Medication Instructions Start Date Stop Date Generic Name NDC Status Provider Patient Instruction COQ10 100 MG ORAL CAPS 1 daily COENZYME Q10 759101605 20 Active [place] AltosLETY Haley Active VITAMIN D3 2000 UNIT ORAL CAPS Melaleuca-One daily CHOLECALCIFEROL 45131070491 Active Kylie Holt CHILDREN'S NURSERY ASSISTANT Active PROBIOTIC DAILY ORAL CAPS Take one daily PROBIOTIC PRODUCT 60941843792 Active Kylie Lundum CHILDREN'S NURSERY ASSISTANT Active IRON 325 (65 FE) MG TABS 1 every other day FERR OUS SULFATE 25022263780 No Longer Active Kylie Lundum CHILDREN'S NURSERY ASSISTANT Active FLORANEX PACK 1 pack three times daily, for bowel health LACTOBACILLUS 37343337637 No Longer Active Kylie Holt CHILDREN'S NURSERY ASSISTANT Active LOMOTIL 2.5-0.025 MG TABS 1 tab by mouth prn 4 DIPHENOXYLATE-ATROPINE 20016143437 No Longer Active Kylie Lundum CHILDREN'S NURSERY ASSISTANT Active MAGNESIUM GLUCONATE 250 MG TABS 1 tab tid 4 MAGNESIUM GLUCONATE 48947268823 No Longer Active Kylie Lundum CHILDREN'S NURSERY ASSISTANT Active CYANOCOBALAMIN 1000 MCG/ML INJ SOLN 1 injection every 2 weeks 20 20/01/03 CYANOCOBALAMIN 69846751054 No Longer Active Kylie Lundum CHILDREN'S NURSERY ASSISTANT Active ATENOLOL 25 MG ORAL TABS 1/2 pill by mouth daily, for headac hes, blood pressure ATENOLOL 44456918120 Active Kylie Lundum CHILDREN'S NURSERY ASSISTANT Active PROPRANOLOL HCL 80 MG TABS 1 tab tue. and thur. 04/10 PROPRANOLOL HCL 61199231593 No Longer Active Hope Benavidez MD PhD A ctive VITAMIN D3 4000 IU 1 tab 3 times daily VITAMIN D3 4000 IU No Longer Active Hope Benavidez MD PhD Active BACTRIM DS 800-160 MG TABS 1 pill by mouth twice daily, for UTI SULFAMETHOXAZOLE-TRIMETHOPRIM 29870764784 No Longer Active A attila Benavidez MD PhD Active PROLIA 60 MG/ML SOLN 1 shot every 6 months for osteoprosis DENOSUMAB 60060412249 Active Hope Benavidez MD PhD Active CALCIUM + D + K 750-500-40 MG-UNT-MCG TABS 1 tab by mouth tw ice daily CALCIUM-VITAMIN D-VITAMIN K 32802537590 Active Hope landers MD PhD Active DAILY VALUE MULTIVITAMIN TABS 1 tab by mouth twice daily MULTIPLE VITAMIN 66801533978 Active Hope Benavidez MD PhD Active FISH OIL 306 MG CAPS 1 tab by mouth three times daily OMEGA-3 FATTY ACIDS 69767573427 Active Hope Benavidez MD PhD Active LUTEIN 10 MG TABS 1 tab daily LUTEIN 25891066956 Act cash Hope Benavidez MD PhD Active TRIAMTERENE-HCTZ 37.5-25 MG TABS 1 tab by mouth daily TRIAMTERENE-HCTZ 54360569394 Active Kylie Holt CHILDREN'S NURSERY ASSISTANT Active CYCLOBENZAPRINE HCL 10 MG TABS 1 tablet by mouth three times daily as needed for headaches CYCLOBENZAPRINE HCL 65899949372 No Longe r Active Adam Yates MD Active OMEPRAZOLE 20 MG CPDR 1 tablet by mouth daily for GERD OMEPRAZOLE 43765666555 No Longer Active Adam Yates MD A ctive ZOFRAN 8 MG TABS 1 tab by mouth every 12 hours prn 201 05/16/09 ONDANSETRON HCL 98015459488 No Longer Active Adam Yates MD Active PHENADOZ 25 MG SUPP 1 every 4 hrs. PRN PROMETHA ZINE HCL 44430315230 No Longer Active Adam Yates MD Active POTASSIUM CHLORIDE 20 MEQ PACK by mouth twice a day prn POTASSIUM CHLORIDE 30564048806 No Longer Active Adam Yates MD Active PROMETHAZINE HCL 25 MG TABS 1 Q. 4 hr. PRN PROM ETHAZINE HCL 55293543148 No Longer Active Adam Yates MD Active INNOPRAN XL 120 MG [id number] Take one by mouth daily 2 PROPRANOLOL HCL SR BEADS 40538158140 No Longer Active Adam Yates MD A ctive FLAGYL 500 MG TABS 1 pill by mouth three times daily, for diarrh ea METRONIDAZOLE 60340177748 No Longer Active Hope Benavidez MD PhD Active DYAZIDE 37.5-25 MG CAPS 1 qd TRIAMTERENE-HC TZ 91307209778 No Longer Active Hope Benavidez MD PhD Active PROZAC 20 MG CAPS 1 q d FLUOXETINE HCL 85488 603394 No Longer Active Hope Benavidez MD PhD Active SIMVASTATIN 40 MG TABS 1 qd SIMVASTATIN 004 06512791 No Longer Active Adam Yates MD Active MELOXICAM 15 MG TABS 1 qd MELOXICAM 0168180 9845 No Longer Active Adam Yates MD Active IMODIUM A-D 2 MG TABS 2 onset at diarrhea and prn. LOPERAMIDE HCL 80574986209 Active Hope Benavidez MD PhD Active EXCEDRIN EXTRA STRENGTH 250-250-65 MG TABS 1-2 q6h PRN headache 201 04/16/21 [id number] 89638892209 Active Hope Benavidez MD PhD Active FLAGYL 500 MG TABS 1 qid METRONIDAZOLE 81424 883828 No Longer Active Adam Yates MD Active LEVAQUIN 750 MG TABS 1 qd LEVOFLOXACIN 5486 6580671 No Longer Active Adam Yates MD Active ADULT ASPIRIN LOW STRENGTH 81 MG TBDP 1 qd A SPIRIN 96242000125 Active Hope Benavidez MD PhD Active LEVAQUIN 750 MG TABS 1 qd LEVAQUIN 750 MG T ABS 782046 LEVOFLOXACIN Inactive FLAGYL 500 MG TABS 1 qid FLAGYL 500 MG TABS 288400 METRONIDAZOLE Inactive MELOXICAM 15 MG TABS 1 qd MELOXICAM 15 MG T ABS 402868 MELOXICAM Inactive SIMVASTATIN 40 MG TABS 1 qd SIMVASTATIN 40 MG TABS 382936 SIMVASTATIN Inactive PROZAC 20 MG CAPS 1 q d PROZAC 20 MG CAPS 31 0385 FLUOXETINE HCL Inactive DYAZIDE 37.5-25 MG CAPS 1 qd DYAZIDE 37.5 -25 MG CAPS 910848 TRIAMTERENE-HCTZ Inactive INNOPRAN XL 120 MG [id number] Take one by mouth daily 2 INNOPRAN XL 120 MG [id number] PROPRANOLOL HCL SR BEADS Inactive PROMETHAZINE HCL 25 MG TABS 1 Q. 4 hr. PRN PROMETHAZINE HCL 25 MG TABS 508765 PROMETHAZINE HCL Inactive POTASSIUM CHLORIDE 20 MEQ PACK by mouth twice a day prn POTASSIUM CHLORIDE 20 MEQ PACK 2769166 POTASSIUM CHLORIDE Inactive PHENADOZ 25 MG SUPP 1 every 4 hrs. PRN PHENADOZ 2 5 MG SUPP 610400 PROMETHAZINE HCL Inactive ZOFRAN 8 MG TABS 1 tab by mouth every 12 hours prn 201 05/16/09 ZOFRAN 8 MG TABS 565280 ONDANSETRON HCL Inactive OMEPRAZOLE 20 MG CPDR 1 tablet by mouth daily for GERD OMEPRAZOLE 20 MG CPDR 611333 OMEPRAZOLE Inactive CYCLOBENZAPRINE HCL 10 MG TABS 1 tablet by mouth three times daily as needed for headaches CYCLOBENZAPRINE HCL 10 MG TABS 164715 CYCLOBENZAPRINE HCL Inactive VITAMIN D3 4000 IU 1 tab 3 times daily VITAMIN D3 4000 IU Inactive PROPRANOLOL HCL 80 MG TABS 1 tab tue. and thur. 04/10 PROPRANOLOL HCL 80 MG TABS 278813 PROPRANOLOL HCL Inactive CYANOCOBALAMIN 1000 MCG/ML INJ SOLN 1 injection every 2 weeks 20 20/01/03 CYANOCOBALAMIN 1000 MCG/ML INJ SOLN 646293 CYANOCOBALAM IN Inactive MAGNESIUM GLUCONATE 250 MG TABS 1 tab tid 4 MAGNESIUM GLUCONATE 250 MG TABS 902048 MAGNESIUM GLUCONATE Inactive LOMOTIL 2.5-0.025 MG TABS 1 tab by mouth prn 4 LOMOTIL 2.5- 0.025 MG TABS 2873180 DIPHENOXYLATE-ATROPINE Inactive FLORANEX PACK 1 pack three times daily, for bowel health FLORANEX PACK LACTOBACILLUS Inactive IRON 325 (65 FE) MG TABS 1 every other day IRON 325 (65 FE) MG TABS 850179 FERROUS SULFATE Inactive FLAGYL 500 MG TABS 1 pill by mouth three times daily, for diarrh ea FLAGYL 500 MG TABS 425270 METRONIDAZOLE Inactive BACTRIM DS 800-160 MG TABS 1 pill by mouth twice daily, for UTI BACTRIM DS 800-160 MG TABS 669208 SULFAMETHOXAZOLE-TRIM ETHOPRIM Inactive Advance Directives Directive Description [...] 11 .0-15.0 platelet count 157 THOUSAND/UL 10*3/mm3 263-250 7880/04/20 mean platelet volume 8.9 fL 7.5-12.5 Lab Report: CBC W/DIFF, Comp. Metabolic Panel, Thyroid Stimulating Hormo ... - Chemistry sodium, serum 139 mmol/L 783-862 7728/10/20 carbon dioxide, venous blood 32.2 mmol/L 21.0-32 [...] Panel, Thyroid Stimulating Hormo ... - Hematology erythrocyte (RBC) count 4.69 10^6/MM^3 10*6/mm3 4.04-5.4 8 hemoglobin, blood 15.1 g/dL 12.0-16.0 hematocrit, blood 44.5 % 36.0-46.0 mean corpuscular volume, RBC 95 fL 80-97 mean corpuscular hemoglobin, RBC 32.2 pg 27. 0-31.2 mean corpuscular hemoglobin concentration, RBC 33.9 G/DL % 31.8-35.4 red blood cell distribution width 14.3 % 11 .6-14.8 platelet count 180 10^3/MM^3 10*3/mm3 723-137 1599/10/20 lymphocytes as percent of blood leukocytes 37.9 % 20.5-51.1 monocytes as percent of blood leukocytes 4.7 % 1.7-9.3 neutrophils as percent of blood leukocytes 53.4 % 42.2-75.2 leukocyte count, blood 6.0 10^3/MM^3 10*3/mm3 4.6-10.2 Lab Report: CEA - Serology carcinoembryonic antigen 0.9 ng/mL carcinoembryonic antigen 0.9 ng/mL Lab Report: Lipid Panel, Calcium - Chemi stry cholesterol, serum 200 mg/dL 672-534 6704/11/22 triglyceride, serum, fasting 129 mg/dL 30-200 HDL cholesterol, serum 56 mg/dL 32-96 LDL cholesterol, serum 118 mg/dL 0-130 calcium, serum 9.0 mg/dL 8.5-10.1 Lab Report: MicroAlb Random w/creat/6517 - Urinalysis microalbumin/total urine volume 8 mg/L Units converted. See lab report for original value. microalbumin/creatinine ratio, urine 15 MCG/MG CREAT mg/L <30 Encounters Code Encounter Date Provider Facility CPT-88425 Level 3 Est. Patient 16:26:30 CDT Kina blackmon [facility]N [facility] CPT-84820 Level 3 New Patient 16:22:01 SENIOR ADULTS DIRECTOR [facility] CPT-88160 Level 4 Est. Patient 17:00:48 CDT Kylie Lund [facility] CPT-26938 Level 3 Est. Patient 13:15:54 CDT Kylie Lund [facility] CPT-97014 Level 3 Est. Patient 09:10:11 CDT Kylie Lund [facility] CPT-49428 Level 4 Est. Patient 12:08:30 SENIOR ADULTS DIRECTOR Hope cohn MD [facility] CPT-09111 Level 4 Est. Patient 19:08:42 SENIOR ADULTS DIRECTOR Hope cohn MD [facility] CPT-73063 Level 4 Est. Patient 20:04:51 CDT Hope cohn MD [facility] CPT-98166 Level 3 New Patient 01:46:11 SENIOR ADULTS DIRECTOR Hope landers MD PhD [facility] Procedures Code Procedure Name Date Entry Date Standard Desc ription CPT-J0897 Prolia 60 mg 14:14:16 SENIOR ADULTS DIRECTOR CPT-56455 Abx/Therapy Injection 14:14:15 SENIOR ADULTS DIRECTOR CPT-66634 Lipid - LAB USE ONLY 10:01:52 SENIOR ADULTS DIRECTOR 2 CPT-09866 Calcium - LAB USE ONLY 10:01:51 SENIOR ADULTS DIRECTOR CPT-67761 Venipuncture Draw Fee 10:01:51 SENIOR ADULTS DIRECTOR CPT-LR Lesion Removal 16:22:01 SENIOR ADULTS DIRECTOR CPT-90101 TSH - LAB USE ONLY 14:26:02 CDT CPT-94154 CMP - LAB USE ONLY 14:26:01 CDT CPT-01139 CBC with Diff - LAB USE ONLY 14:26:01 CDT 2 CPT-77415 Venipuncture Draw Fee 14:26:01 CDT CPT-24168 First Vx - Ix admin for Medicare patients 13:27:08 CDT CPT-64755 Fluzone High-Dose Intramuscular Suspension 11/26 13:27:08 CDT CPT-G0438 Initial Annual Wellness Exam 14:19:57 CD T CPT-G0009 Administration of Pneumococcal Vaccine 9 11:36:25 CDT CPT-98331 Prevnar 13 Intramuscular Suspension 1 1:36:25 CDT CPT-31275 Prevnar 13 Intramuscular Suspension 1 0:40:58 CDT CPT-J0897 Prolia 60 mg 10:37:16 CDT CPT-04172 Abx/Therapy Injection 10:37:16 CDT CPT-J0897 Prolia 60 mg 16:09:34 SENIOR ADULTS DIRECTOR CPT-J0897 Prolia 60 mg 11:10:35 SENIOR ADULTS DIRECTOR CPT-22586 Abx/Therapy Injection 11:10:35 SENIOR ADULTS DIRECTOR CPT-000 Give Appropriate Flu Vaccine 17:01:15 SENIOR ADULTS DIRECTOR 2 CPT-03108 Fluzone High Dose (65+) 15:03:08 SENIOR ADULTS DIRECTOR 02/15 CPT-41202 Immunization Single Admin 15:03:08 SENIOR ADULTS DIRECTOR 2014 CPT-OV Office Visit 15:58:06 CDT CPT-J0897 Prolia 60 mg 08:45:38 CDT CPT-97015 Abx/Therapy Injection 08:45:38 CDT CPT-J3420 Vitamin B12 1000mcg (Cyanocobalamin) 09:26:20 SENIOR ADULTS DIRECTOR CPT-33154 Abx/Therapy Injection 09:26:20 SENIOR ADULTS DIRECTOR CPT-J3420 Vitamin B12 1000mcg (Cyanocobalamin) 09:44:40 SENIOR ADULTS DIRECTOR CPT-37050 Abx/Therapy Injection 09:44:40 SENIOR ADULTS DIRECTOR CPT-J3420 Vitamin B12 1000mcg (Cyanocobalamin) 09:15:54 SENIOR ADULTS DIRECTOR CPT-31496 Abx/Therapy Injection 09:15:54 SENIOR ADULTS DIRECTOR CPT-J3420 Vitamin B12 1000mcg (Cyanocobalamin) 09:46:44 SENIOR ADULTS DIRECTOR CPT-84496 Abx/Therapy Injection 09:46:44 SENIOR ADULTS DIRECTOR CPT-J3420 Vitamin B12 1000mcg (Cyanocobalamin) 09:47:34 SENIOR ADULTS DIRECTOR CPT-87965 Abx/Therapy Injection 09:47:34 SENIOR ADULTS DIRECTOR CPT-J3420 Vitamin B12 1000mcg (Cyanocobalamin) 14:35:50 SENIOR ADULTS DIRECTOR CPT-J3420 Vitamin B12 1000mcg (Cyanocobalamin) 09:25:05 SENIOR ADULTS DIRECTOR CPT-52008 Abx/Therapy Injection 09:25:05 SENIOR ADULTS DIRECTOR CPT-G0008 Administration of Influenza Virus Vaccine 13:36:47 CDT CPT-40159 Fluzone High-Dose Intramuscular Suspension 11/15 13:36:47 CDT CPT-J0897 Prolia 60 mg 08:50:41 CDT CPT-63703 Abx/Therapy Injection 08:50:41 CDT CPT-48769 Bone Density 12:06:12 CDT CPT-39411 Bone Density 08:54:40 CDT CPT-OV Office Visit 15:37:02 CDT CPT-53140 Postop F/U Visit 15:47:49 CDT CPT-05195 Postop F/U Visit 15:21:02 CDT CPT-TCMH Transitional Care Mgmt-High 07:52:27 CDT 20 20/06/01 CPT-29277 Venipuncture Draw Fee 13:51:18 CDT CPT-11988 Venipuncture Draw Fee 10:14:55 SENIOR ADULTS DIRECTOR CPT-66518 Venipuncture Draw Fee 13:39:45 SENIOR ADULTS DIRECTOR CPT-OV Office Visit 15:11:22 SENIOR ADULTS DIRECTOR CPT-03865 Venipuncture Draw Fee 09:20:49 SENIOR ADULTS DIRECTOR CPT-91532 Venipuncture Draw Fee 16:52:15 SENIOR ADULTS DIRECTOR CPT-02656 Venipuncture Draw Fee 10:37:24 SENIOR ADULTS DIRECTOR CPT-50022 Venipuncture Draw Fee 08:21:21 SENIOR ADULTS DIRECTOR CPT-25499 Venipuncture Draw Fee 08:30:20 SENIOR ADULTS DIRECTOR CPT-97968 Venipuncture Draw Fee 14:53:21 SENIOR ADULTS DIRECTOR CPT-79942 Venipuncture Draw Fee 09:40:56 SENIOR ADULTS DIRECTOR CPT-41067 Venipuncture Draw Fee 10:30:47 SENIOR ADULTS DIRECTOR CPT-91520 Venipuncture Draw Fee 10:46:17 SENIOR ADULTS DIRECTOR CPT-10025 Venipuncture Draw Fee 11:12:45 SENIOR ADULTS DIRECTOR CPT-75253 Venipuncture Draw Fee 09:53:33 SENIOR ADULTS DIRECTOR CPT-25568 Venipuncture Draw Fee 11:53:51 SENIOR ADULTS DIRECTOR CPT-22954 Venipuncture Draw Fee 10:33:50 SENIOR ADULTS DIRECTOR CPT-74896 Venipuncture Draw Fee 10:05:01 SENIOR ADULTS DIRECTOR CPT-82806 Venipuncture Draw Fee 14:32:52 SENIOR ADULTS DIRECTOR CPT-55336 Venipuncture Draw Fee 09:46:13 SENIOR ADULTS DIRECTOR CPT-97490 Venipuncture Draw Fee 11:34:27 SENIOR ADULTS DIRECTOR CPT-82124 Venipuncture Draw Fee 13:17:16 SENIOR ADULTS DIRECTOR CPT-13244 Venipuncture Draw Fee 12:05:39 CDT CPT-16788 Venipuncture Draw Fee 12:49:12 CDT CPT-35040 Venipuncture Draw Fee 12:37:18 CDT CPT-90142 Venipuncture Draw Fee 10:57:11 CDT CPT-26583 Venipuncture Draw Fee 13:47:40 CDT CPT-48368 Venipuncture Draw Fee 10:02:17 CDT CPT-20304 TB Tubersol 17:32:32 CDT CPT-OV Office Visit 16:21:53 CDT CPT-OV Office Visit 15:49:22 CDT CPT-OV Office Visit 17:16:31 CDT CPT-OV Office Visit 10:43:31 CDT
--- OUTSIDE RECORDS SUMMARY | 2019-02-09 12:26 | XMS REPORT | Clinical Summary ---
Author Author Renaldo, Florecita Munoz Organization [facility] Address Unknown Phone Unavailable Allergies, Adverse Reactions, [...] PhD Hyperpotassemia GERD 530.81 Resolved Kylie Yokum GASSER MACHINE OPERATOR Esophageal reflux Health maintenance exam V70.0 Resolved Adolfo Yates MD Routine general medical examination at a health care facility Anemia 285.9 Resolved Kylie Holt GASSER MACHINE OPERATOR Anemia, unspecified Personal history of malignant [...] Sebaceous cyst, scalp 706.2 Resolved Kylie Holt GASSER MACHINE OPERATOR Sebaceous cyst Cervical lymphadenopathy, anterior, left 785.6 Resolv ed Kylie Holt GASSER MACHINE OPERATOR Enlargement of lymph nodes Need for prophylactic vaccination and inoculation against in fluenza V04.81 Resolved Adam Yates MD Need for prophylactic vaccination and inoculation against influenza Preventive health care V70.0 Active Kylie Holt GASSER MACHINE OPERATOR Routine general medical examination at [...] RIGHT LOWER QUADRANT ICD-789.03 Inactive Kina Joshua GASSER MACHINE OPERATOR ADENOCARCINOMA, COLON, 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 Dick Yates MD ABDOMINAL PAIN, GENERALIZED ICD-789.07 Inactive Hope Benavidez MD PhD FEVER UNSPECIFIED ICD-780.60 Inactive Hope cohn MD PhD UNSPECIFIED VENOUS INSUFFICIENCY ICD-459.81 Carson ctive Adam Yates MD ADENOCARCINOMA, 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 Inac abdelrahman Benavidez MD PhD Hyperkalemia ICD-276.7 Inactive Hope Benavidez MD PhD GERD ICD-530.81 Inactive Kylie Holt GASSER MACHINE OPERATOR 2015 Health maintenance exam ICD-V70.0 Inactive Adolfo Yates MD Anemia ICD-285.9 Inactive Kylie Holt GASSER MACHINE OPERATOR 07/24 Weakness ICD-780.79 Inactive Hope Benavidez MD [...] Sebaceous cyst, scalp ICD-706.2 Inactive Tracy Holt GASSER MACHINE OPERATOR Cervical lymphadenopathy, anterior, left ICD-785.6 Inactive Kylie Holt GASSER MACHINE OPERATOR Need for prophylactic vaccination and inoculation against in fluenza ICD-V04.81 Bam Yates MD Medication List Medication Instructions Start Date Stop Date Generic Name NDC Status Provider Patient Instruction VITAMIN D3 2000 UNIT ORAL CAPS Melaleuca-One daily CHOLECALCIFEROL 24148340373 Active Kylie Holt APRN Active PROBIOTIC DAILY ORAL CAPS Take one daily PROBIOTIC PRODUCT 43766724322 Active Kylie Holt APRN Active IRON 325 (65 FE) MG TABS 1 every other day FERR OUS SULFATE 32364001271 No Longer Active Kylie Holt APRN Active FLORANEX PACK 1 pack three times daily, for bowel health LACTOBACILLUS 95873137851 No Longer Active Kylie Holt APRN Active LOMOTIL 2.5-0.025 MG TABS 1 tab by mouth prn 4 DIPHENOXYLATE-ATROPINE 40354052475 No Longer Active Kylie Holt APRN Active MAGNESIUM GLUCONATE 250 MG TABS 1 tab tid 4 MAGNESIUM GLUCONATE 80785648325 No Longer Active Kylie Holt APRN Active CYANOCOBALAMIN 1000 MCG/ML INJ SOLN 1 injection every 2 weeks 20 20/01/03 CYANOCOBALAMIN 40343607833 No Longer Active Kylie Holt APRN Active ATENOLOL 25 MG ORAL TABS 1/2 pill by mouth daily, for headac hes, blood pressure ATENOLOL 03723807358 Active Kylie Holt APRN Active PROPRANOLOL HCL 80 MG TABS 1 tab tue. and thur. 04/10 PROPRANOLOL HCL 40728441581 No Longer Active Hope Benavidez MD PhD A ctive VITAMIN D3 4000 IU 1 tab 3 times daily VITAMIN D3 4000 IU No Longer Active Hope Benavidez MD PhD Active BACTRIM DS 800-160 MG TABS 1 pill by mouth twice daily, for UTI SULFAMETHOXAZOLE-TRIMETHOPRIM 64562661703 No Longer Active A attila Benavidez MD PhD Active PROLIA 60 MG/ML SOLN 1 shot every 6 months for osteoprosis DENOSUMAB 14858051210 Active Hope Benavidez MD PhD Active CALCIUM + D + K 750-500-40 MG-UNT-MCG TABS 1 tab by mouth tw ice daily CALCIUM-VITAMIN D-VITAMIN K 86134762330 Active Hope landers MD PhD Active DAILY VALUE MULTIVITAMIN TABS 1 tab by mouth twice daily MULTIPLE VITAMIN 55684749425 Active Hope Benavidez MD PhD Active FISH OIL 306 MG CAPS 1 tab by mouth three times daily OMEGA-3 FATTY ACIDS 45707339412 Active Hope Benavidez MD PhD Active LUTEIN 10 MG TABS 1 tab daily LUTEIN 18582033174 Act cash Hope Benavidez MD PhD Active TRIAMTERENE-HCTZ 37.5-25 MG TABS 1 tab by mouth daily TRIAMTERENE-HCTZ 59123463475 Active Kylie Lundoliver REYES Active CYCLOBENZAPRINE HCL 10 MG TABS 1 tablet by mouth three times daily as needed for headaches CYCLOBENZAPRINE HCL 02846666852 No Longe r Active Adam Yates MD Active OMEPRAZOLE 20 MG CPDR 1 tablet by mouth daily for GERD OMEPRAZOLE 49218376043 No Longer Active Adam Yates MD A ctive ZOFRAN 8 MG TABS 1 tab by mouth every 12 hours prn 201 05/16/09 ONDANSETRON HCL 27821651220 No Longer Active Adam Yates MD Active PHENADOZ 25 MG SUPP 1 every 4 hrs. PRN PROMETHA ZINE HCL 56367250044 No Longer Active Adam Yates MD Active POTASSIUM CHLORIDE 20 MEQ PACK by mouth twice a day prn POTASSIUM CHLORIDE 65424119648 No Longer Active Adam Yates MD Active PROMETHAZINE HCL 25 MG TABS 1 Q. 4 hr. PRN PROM ETHAZINE HCL 48839053214 No Longer Active Adam Yates MD Active INNOPRAN XL 120 MG [id number] Take one by mouth daily 2 PROPRANOLOL HCL SR BEADS 16247951922 No Longer Active Adam Yates MD A ctive FLAGYL 500 MG TABS 1 pill by mouth three times daily, for diarrh ea METRONIDAZOLE 11145558753 No Longer Active Hope Benavidez MD PhD Active DYAZIDE 37.5-25 MG CAPS 1 qd TRIAMTERENE-HC TZ 49201864110 No Longer Active Hope Benavidez MD PhD Active PROZAC 20 MG CAPS 1 q d FLUOXETINE HCL 51211 456405 No Longer Active Hope Benavidez MD PhD Active SIMVASTATIN 40 MG TABS 1 qd SIMVASTATIN 004 14197377 No Longer Active Adam Yates MD Active MELOXICAM 15 MG TABS 1 qd MELOXICAM 6074383 6585 No Longer Active Adam Yates MD Active IMODIUM A-D 2 MG TABS 2 onset at diarrhea and prn. LOPERAMIDE HCL 05445987444 Active Hope Benavidez MD PhD Active EXCEDRIN EXTRA STRENGTH 250-250-65 MG TABS 1-2 q6h PRN headache 201 04/16/21 [id number] 23327075830 Active Hope Benavidez MD PhD Active FLAGYL 500 MG TABS 1 qid METRONIDAZOLE 17925 779346 No Longer Active Adam Yates MD Active LEVAQUIN 750 MG TABS 1 qd LEVOFLOXACIN 5486 5381687 No Longer Active Adam Yates MD Active ADULT ASPIRIN LOW STRENGTH 81 MG TBDP 1 qd A SPIRIN 21300561590 Active Hope Benavidez MD PhD Active LEVAQUIN 750 MG TABS 1 qd LEVAQUIN 750 MG T ABS 932616 LEVOFLOXACIN Inactive FLAGYL 500 MG TABS 1 qid FLAGYL 500 MG TABS 518203 METRONIDAZOLE Inactive MELOXICAM 15 MG TABS 1 qd MELOXICAM 15 MG T ABS 348462 MELOXICAM Inactive SIMVASTATIN 40 MG TABS 1 qd SIMVASTATIN 40 MG TABS 819412 SIMVASTATIN Inactive PROZAC 20 MG CAPS 1 q d PROZAC 20 MG CAPS 31 0385 FLUOXETINE HCL Inactive DYAZIDE 37.5-25 MG CAPS 1 qd DYAZIDE 37.5 -25 MG CAPS 431810 TRIAMTERENE-HCTZ Inactive INNOPRAN XL 120 MG [id number] Take one by mouth daily 2 INNOPRAN XL 120 MG [id number] PROPRANOLOL HCL SR BEADS Inactive PROMETHAZINE HCL 25 MG TABS 1 Q. 4 hr. PRN PROMETHAZINE HCL 25 MG TABS 673266 PROMETHAZINE HCL Inactive POTASSIUM CHLORIDE 20 MEQ PACK by mouth twice a day prn POTASSIUM CHLORIDE 20 MEQ PACK 566504 POTASSIUM CHLORIDE Inactive PHENADOZ 25 MG SUPP 1 every 4 hrs. PRN PHENADOZ 2 5 MG SUPP 680944 PROMETHAZINE HCL Inactive ZOFRAN 8 MG TABS 1 tab by mouth every 12 hours prn 201 05/16/09 ZOFRAN 8 MG TABS 306939 ONDANSETRON HCL Inactive OMEPRAZOLE 20 MG CPDR 1 tablet by mouth daily for GERD OMEPRAZOLE 20 MG CPDR 547598 OMEPRAZOLE Inactive CYCLOBENZAPRINE HCL 10 MG TABS 1 tablet by mouth three times daily as needed for headaches CYCLOBENZAPRINE HCL 10 MG TABS 956361 CYCLOBENZAPRINE HCL Inactive VITAMIN D3 4000 IU 1 tab 3 times daily VITAMIN D3 4000 IU Inactive PROPRANOLOL HCL 80 MG TABS 1 tab tue. and thur. 04/10 PROPRANOLOL HCL 80 MG TABS 355206 PROPRANOLOL HCL Inactive CYANOCOBALAMIN 1000 MCG/ML INJ SOLN 1 injection every 2 weeks 20 20/01/03 CYANOCOBALAMIN 1000 MCG/ML INJ SOLN 328673 CYANOCOBALAM IN Inactive MAGNESIUM GLUCONATE 250 MG TABS 1 tab tid 4 MAGNESIUM GLUCONATE 250 MG TABS 822986 MAGNESIUM GLUCONATE Inactive LOMOTIL 2.5-0.025 MG TABS 1 tab by mouth prn 4 LOMOTIL 2.5- 0.025 MG TABS 1520430 DIPHENOXYLATE-ATROPINE Inactive FLORANEX PACK 1 pack three times daily, for bowel health FLORANEX PACK LACTOBACILLUS Inactive IRON 325 (65 FE) MG TABS 1 every other day IRON 325 (65 FE) MG TABS 175774 FERROUS SULFATE Inactive FLAGYL 500 MG TABS 1 pill by mouth three times daily, for diarrh ea FLAGYL 500 MG TABS 673418 METRONIDAZOLE Inactive BACTRIM DS 800-160 MG TABS 1 pill by mouth twice daily, for UTI BACTRIM DS 800-160 MG TABS 081877 SULFAMETHOXAZOLE-TRIM ETHOPRIM Inactive Advance Directives Directive Description [...] serum 8.7 mg/dL 8.5-10.1 Lab Report: CBC (INCLUDES DIFF/PLT)/6399 [...] 11 .0-15.0 platelet count 157 THOUSAND/UL 10*3/mm3 267-585 3869/04/20 mean platelet volume 8.9 fL 7.5-12.5 Lab Report: CBC W/DIFF, Comp. Metabolic Panel, Thyroid Stimulating Hormo ... - Chemistry sodium, serum 139 mmol/L 776-511 6147/10/20 carbon dioxide, venous blood 32.2 mmol/L 21.0-32 [...] - Chemi stry cholesterol, serum 200 mg/dL 189-166 9341/11/22 triglyceride, serum, fasting 129 mg/dL 30-200 HDL cholesterol, serum 56 mg/dL 32-96 LDL cholesterol, serum 118 mg/dL 0-130 calcium, serum 9.0 mg/dL 8.5-10.1 Lab Report: MicroAlb Random w/creat/6517 - Urinalysis microalbumin/total urine volume 8 mg/L Units converted. See lab report for original value. microalbumin/creatinine ratio, urine 15 MCG/MG CREAT mg/L <30 Encounters Code Encounter Date Provider Facility CPT-69619 Level 3 New Patient 16:22:01 OUTSIDE PHYSICAL DAMAGE APPRAISER Adam Yates MD [facility] CPT-57440 Level 4 Est. Patient 17:00:48 CDT Kylie Lund [facility] CPT-27085 Level 3 Est. Patient 13:15:54 CDT Kylie Lund [facility] CPT-19439 Level 3 Est. Patient 09:10:11 CDT Kylie Lund [facility] CPT-13145 Level 4 Est. Patient 12:08:30 OUTSIDE PHYSICAL DAMAGE APPRAISER Hope cohn MD PhD [facility] CPT-23989 Level 4 Est. Patient 19:08:42 OUTSIDE PHYSICAL DAMAGE APPRAISER Hope cohn MD PhD [facility] CPT-92955 Level 4 Est. Patient 20:04:51 CDT Hope cohn MD PhD [facility] CPT-91626 Level 3 New Patient 01:46:11 OUTSIDE PHYSICAL DAMAGE APPRAISER Hope landers MD PhD [facility] Procedures Code Procedure Name Date Entry Date Standard Desc ription CPT-J0897 Prolia 60 mg 14:14:16 OUTSIDE PHYSICAL DAMAGE APPRAISER CPT-93013 Abx/Therapy Injection 14:14:15 OUTSIDE PHYSICAL DAMAGE APPRAISER CPT-78904 Lipid - LAB USE ONLY 10:01:52 OUTSIDE PHYSICAL DAMAGE APPRAISER 2 CPT-27717 Calcium - LAB USE ONLY 10:01:51 OUTSIDE PHYSICAL DAMAGE APPRAISER CPT-52778 Venipuncture Draw Fee 10:01:51 OUTSIDE PHYSICAL DAMAGE APPRAISER CPT-LR Lesion Removal 16:22:01 OUTSIDE PHYSICAL DAMAGE APPRAISER CPT-67271 TSH - LAB USE ONLY 14:26:02 CDT CPT-51492 CMP - LAB USE ONLY 14:26:01 CDT CPT-39107 CBC with Diff - LAB USE ONLY 14:26:01 CDT 2 CPT-49115 Venipuncture Draw Fee 14:26:01 CDT CPT-52022 First Vx - Ix admin for Medicare patients 13:27:08 CDT CPT-94834 Fluzone High-Dose Intramuscular Suspension 11/26 13:27:08 CDT CPT-G0438 Initial Annual Wellness Exam 14:19:57 CD T CPT-G0009 Administration of Pneumococcal Vaccine 9 11:36:25 CDT CPT-97375 Prevnar 13 Intramuscular Suspension 1 1:36:25 CDT CPT-50025 Prevnar 13 Intramuscular Suspension 1 0:40:58 CDT CPT-J0897 Prolia 60 mg 10:37:16 CDT CPT-79726 Abx/Therapy Injection 10:37:16 CDT CPT-J0897 Prolia 60 mg 16:09:34 OUTSIDE PHYSICAL DAMAGE APPRAISER CPT-J0897 Prolia 60 mg 11:10:35 OUTSIDE PHYSICAL DAMAGE APPRAISER CPT-39082 Abx/Therapy Injection 11:10:35 OUTSIDE PHYSICAL DAMAGE APPRAISER CPT-000 Give Appropriate Flu Vaccine 17:01:15 OUTSIDE PHYSICAL DAMAGE APPRAISER 2 CPT-13820 Fluzone High Dose (65+) 15:03:08 OUTSIDE PHYSICAL DAMAGE APPRAISER 02/15 CPT-47261 Immunization Single Admin 15:03:08 OUTSIDE PHYSICAL DAMAGE APPRAISER 2014 CPT-OV Office Visit 15:58:06 CDT CPT-J0897 Prolia 60 mg 08:45:38 CDT CPT-19013 Abx/Therapy Injection 08:45:38 CDT CPT-J3420 Vitamin B12 1000mcg (Cyanocobalamin) 09:26:20 OUTSIDE PHYSICAL DAMAGE APPRAISER CPT-28949 Abx/Therapy Injection 09:26:20 OUTSIDE PHYSICAL DAMAGE APPRAISER CPT-J3420 Vitamin B12 1000mcg (Cyanocobalamin) 09:44:40 OUTSIDE PHYSICAL DAMAGE APPRAISER CPT-73075 Abx/Therapy Injection 09:44:40 OUTSIDE PHYSICAL DAMAGE APPRAISER CPT-J3420 Vitamin B12 1000mcg (Cyanocobalamin) 09:15:54 OUTSIDE PHYSICAL DAMAGE APPRAISER CPT-32631 Abx/Therapy Injection 09:15:54 OUTSIDE PHYSICAL DAMAGE APPRAISER CPT-J3420 Vitamin B12 1000mcg (Cyanocobalamin) 09:46:44 OUTSIDE PHYSICAL DAMAGE APPRAISER CPT-16250 Abx/Therapy Injection 09:46:44 OUTSIDE PHYSICAL DAMAGE APPRAISER CPT-J3420 Vitamin B12 1000mcg (Cyanocobalamin) 09:47:34 OUTSIDE PHYSICAL DAMAGE APPRAISER CPT-73408 Abx/Therapy Injection 09:47:34 OUTSIDE PHYSICAL DAMAGE APPRAISER CPT-J3420 Vitamin B12 1000mcg (Cyanocobalamin) 14:35:50 OUTSIDE PHYSICAL DAMAGE APPRAISER CPT-J3420 Vitamin B12 1000mcg (Cyanocobalamin) 09:25:05 OUTSIDE PHYSICAL DAMAGE APPRAISER CPT-39888 Abx/Therapy Injection 09:25:05 OUTSIDE PHYSICAL DAMAGE APPRAISER CPT-G0008 Administration of Influenza Virus Vaccine 13:36:47 CDT CPT-12004 Fluzone High-Dose Intramuscular Suspension 11/15 13:36:47 CDT CPT-J0897 Prolia 60 mg 08:50:41 CDT CPT-34473 Abx/Therapy Injection 08:50:41 CDT CPT-37388 Bone Density 12:06:12 CDT CPT-20961 Bone Density 08:54:40 CDT CPT-OV Office Visit 15:37:02 CDT CPT-61937 Postop F/U Visit 15:47:49 CDT CPT-56128 Postop F/U Visit 15:21:02 CDT CPT-TCMH Transitional Care Mgmt-High 07:52:27 CDT 20 20/06/01 CPT-79314 Venipuncture Draw Fee 13:51:18 CDT CPT-00243 Venipuncture Draw Fee 10:14:55 OUTSIDE PHYSICAL DAMAGE APPRAISER CPT-15445 Venipuncture Draw Fee 13:39:45 OUTSIDE PHYSICAL DAMAGE APPRAISER CPT-OV Office Visit 15:11:22 OUTSIDE PHYSICAL DAMAGE APPRAISER CPT-85403 Venipuncture Draw Fee 09:20:49 OUTSIDE PHYSICAL DAMAGE APPRAISER CPT-63550 Venipuncture Draw Fee 16:52:15 OUTSIDE PHYSICAL DAMAGE APPRAISER CPT-01315 Venipuncture Draw Fee 10:37:24 OUTSIDE PHYSICAL DAMAGE APPRAISER CPT-25165 Venipuncture Draw Fee 08:21:21 OUTSIDE PHYSICAL DAMAGE APPRAISER CPT-47882 Venipuncture Draw Fee 08:30:20 OUTSIDE PHYSICAL DAMAGE APPRAISER CPT-22141 Venipuncture Draw Fee 14:53:21 OUTSIDE PHYSICAL DAMAGE APPRAISER CPT-73196 Venipuncture Draw Fee 09:40:56 OUTSIDE PHYSICAL DAMAGE APPRAISER CPT-17308 Venipuncture Draw Fee 10:30:47 OUTSIDE PHYSICAL DAMAGE APPRAISER CPT-73053 Venipuncture Draw Fee 10:46:17 OUTSIDE PHYSICAL DAMAGE APPRAISER CPT-46945 Venipuncture Draw Fee 11:12:45 OUTSIDE PHYSICAL DAMAGE APPRAISER CPT-00084 Venipuncture Draw Fee 09:53:33 OUTSIDE PHYSICAL DAMAGE APPRAISER CPT-72839 Venipuncture Draw Fee 11:53:51 OUTSIDE PHYSICAL DAMAGE APPRAISER CPT-98034 Venipuncture Draw Fee 10:33:50 OUTSIDE PHYSICAL DAMAGE APPRAISER CPT-18111 Venipuncture Draw Fee 10:05:01 OUTSIDE PHYSICAL DAMAGE APPRAISER CPT-62813 Venipuncture Draw Fee 14:32:52 OUTSIDE PHYSICAL DAMAGE APPRAISER CPT-61022 Venipuncture Draw Fee 09:46:13 OUTSIDE PHYSICAL DAMAGE APPRAISER CPT-78048 Venipuncture Draw Fee 11:34:27 OUTSIDE PHYSICAL DAMAGE APPRAISER CPT-54897 Venipuncture Draw Fee 13:17:16 OUTSIDE PHYSICAL DAMAGE APPRAISER CPT-73121 Venipuncture Draw Fee 12:05:39 CDT CPT-66961 Venipuncture Draw Fee 12:49:12 CDT CPT-11211 Venipuncture Draw Fee 12:37:18 CDT CPT-75893 Venipuncture Draw Fee 10:57:11 CDT CPT-21289 Venipuncture Draw Fee 13:47:40 CDT CPT-68554 Venipuncture Draw Fee 10:02:17 CDT CPT-06933 TB Tubersol 17:32:32 CDT CPT-OV Office Visit 16:21:53 CDT CPT-OV Office Visit 15:49:22 CDT CPT-OV Office Visit 17:16:31 CDT CPT-OV Office Visit 10:43:31 CDT
--- OUTSIDE RECORDS SUMMARY | 2019-02-09 12:26 | XMS REPORT | Clinical Summary ---
Author Author Renaldo, Florecita Munoz Organization [facility] [employer] Address Unknown Phone Unavailable Allergies, Adverse Reactions, [...] Hyperpotassemia GERD 530.81 Resolved Kylie Yokum DATA MODELING SPECIALIST Esophageal reflux Health maintenance exam V70.0 Resolved Adolfo Yates MD Routine general medical examination at a health care facility Anemia 285.9 Resolved Kylie Yanet DATA MODELING SPECIALIST Anemia, unspecified Personal history of malignant neoplasm of large intestine V10.05 Active Adam Yates MD Personal history of malignant neoplasm of large intestine Hypomagnesemia 275.2 Resolved Kylie Yanet DATA MODELING SPECIALIST Disorders of magnesium metabolism Weakness 780.79 Resolved Hope Benavidez MD PhD Other malaise and fatigue Aftercare following surgery of the teeth,oral cavity a nd digestive system, NEC V58.75 Resolved Adam Yaets MD Af tercare following surgery of the teeth,oral cavity and digestive system, NEC FH Stroke V17.1 Active Adam Yates MD Family history of stroke (cerebrovascular) Colon cancer 153.9 Resolved Adam Yates MD Malignant neoplasm of colon, unspecified FH Colon Cancer V16.0 Active Adam Delgado D Family history of malignant neoplasm of gastrointestinal tract Asymptomatic postmenopausal status (age-related) (natural) V49.8 1 Inactive Hope Benavidze MD PhD Asymptomatic postmenopausal status (age-related) (natural) [...] cyst, scalp 706.2 Resolved Kylie Yokum DATA MODELING SPECIALIST Sebaceous cyst Cervical lymphadenopathy, anterior, left 785.6 Resolv ed Kylie Yokum DATA MODELING SPECIALIST Enlargement of lymph nodes Need for prophylactic vaccination and inoculation against in fluenza V04.81 Resolved Adam Yates MD Need for prophylactic vaccination and inoculation against influenza Preventive health care V70.0 Active Kylie Yokum DATA MODELING SPECIALIST Routine general medical examination at a health care facility Thyroid nodule, left 241.0 Active Kylie Yokum A PRN Nontoxic uninodular goiter Screening mammogram V76.12 Active Kylie Yokum AP RN Other screening mammogram Mandy 706.2 Resolved Kylie Yokum DATA MODELING SPECIALIST Sebaceous cyst Colon cancer, ascending 153.6 Resolved Kylie Yok um DATA MODELING SPECIALIST Malignant neoplasm of ascending colon Foot pain, left 729.5 Active Sulema Naff SURGICAL SCRUB TECHNOLOGIST Pain in limb Splinter 919.6 Active Kylie Yokum DATA MODELING SPECIALIST Superficial foreign body (splinter) of other, multiple, and unspecified sites, without major open wound and without mention of infection Rash 782.1 Active Kylie Yokum DATA MODELING SPECIALIST R aurora and other nonspecific skin eruption ABDOMINAL PAIN, RIGHT LOWER QUADRANT ICD-789.03 Inactive Kina Joshua DATA MODELING SPECIALIST ADENOCARCINOMA, COLON, 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 Dick Yates MD ABDOMINAL PAIN, GENERALIZED ICD-789.07 Inactive Hope Benavidez MD PhD FEVER UNSPECIFIED ICD-780.60 Inactive Hope cohn MD PhD UNSPECIFIED VENOUS INSUFFICIENCY ICD-459.81 [address]ive Adam Yates MD ADENOCARCINOMA, 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 Inac tive Hope Benavidez MD PhD Hyperkalemia ICD-276.7 Inactive Hope Bneavidez MD PhD GERD ICD-530.81 Inactive Kylie Yanet DATA MODELING SPECIALIST 2015 Health maintenance exam ICD-V70.0 Bam Yates MD Anemia ICD-285.9 Inactive Kylie Holt DATA MODELING SPECIALIST 07/24 Hypomagnesemia ICD-275.2 Inactive Kylie Yokum DATA MODELING SPECIALIST Weakness ICD-780.79 Inactive Hope Benavidez MD [...] Sebaceous cyst, scalp ICD-706.2 Inactive Tracy Holt DATA MODELING SPECIALIST Cervical lymphadenopathy, anterior, left ICD-785.6 Inactive Kylie Holt DATA MODELING SPECIALIST Need for prophylactic vaccination and inoculation against in fluenza ICD-V04.81 Inactive Adam Yates MD Mandy ICD-706.2 Inactive Kylie Holt AMY 07/20 Colon cancer, ascending ICD-153.6 Inactive Gabbi Escalonagabbioliver AMY Medication List Medication Instructions Start Date Stop Date Generic Name NDC Status Provider Patient Instruction VOLTAREN 1 % TRANSDERMAL GEL apply q 6-8 hour to left arm as needed for pain DICLOFENAC SODIUM 34919291594 Active Kylie Holt AMY Active COQ10 100 MG ORAL CAPSULE 1 daily COENZYME Q10 057408 13104 Active LETY Nation Active VITAMIN D3 2000 UNIT ORAL CAPSULE Melaleuca-One daily CHOLECALCIFEROL 87938629375 Active Kylie Holt APRN Active PROBIOTIC DAILY ORAL CAPSULE Take one daily PROBIO TIC PRODUCT 87044515446 Active Kylie Holt AMY Active IRON 325 (65 Fe) MG ORAL TABLET 1 every other day FERROUS SULFATE 00326142885 No Longer Active Kylie Holt AMY Active FLORANEX ORAL PACKET 1 pack three times daily, for bowel health LACTOBACILLUS 72510141284 No Longer Active Kylie Holt AMY Active LOMOTIL 2.5-0.025 MG ORAL TABLET 1 tab by mouth prn 23/10/23 DIPHENOXYLATE-ATROPINE 87994258671 No Longer Active Kylie Holt DATA MODELING SPECIALIST Active MAGNESIUM GLUCONATE 250 MG ORAL TABLET 1 tab tid 23/10/23 MAGNESIUM GLUCONATE 24752168942 No Longer Active Kylie Holt DATA MODELING SPECIALIST Active CYANOCOBALAMIN 1000 MCG/ML INJECTION SOLUTION 1 injection ev ruben 2 weeks CYANOCOBALAMIN 64895540846 No Longer Active Kylie boyd DATA MODELING SPECIALIST Active ATENOLOL 25 MG ORAL TABLET 1/2 pill by mouth daily, fo r headaches, blood pressure ATENOLOL 29467225481 Active Kylie Holt DATA MODELING SPECIALIST Active PROPRANOLOL HCL 80 MG ORAL TABLET 1 tab tue. and thur. PROPRANOLOL HCL 78489864092 No Longer Active Hope Benavidez MD PhD A ctive VITAMIN D3 4000 IU 1 tab 3 times daily VITAMIN D3 4000 IU No Longer Active Hope Benavidez MD PhD Active BACTRIM DS 800-160 MG ORAL TABLET 1 pill by mouth twice claudio y, for UTI SULFAMETHOXAZOLE-TRIMETHOPRIM 78151775884 No Longer Active Hope Benavidez MD PhD Active PROLIA 60 MG/ML SUBCUTANEOUS SOLUTION 1 shot every 6 months for osteoprosis DENOSUMAB 24171662944 Active Hope Benavidez MD PhD Active CALCIUM + D + K 750-500-40 MG-UNT-MCG ORAL TABLET 1 tab by m harvinder twice daily CALCIUM-VITAMIN D-VITAMIN K 21272431417 Active Hope valdez MD PhD Active DAILY VALUE MULTIVITAMIN ORAL TABLET 1 tab by mouth twice daily 201 05/16/14 MULTIPLE VITAMIN 28775253692 Active Hope Benavidez MD PhD Acti ve FISH OIL 306 MG CAPS 1 tab by mouth three times daily OMEGA-3 FATTY ACIDS 03952210212 Active Hope Benavidez MD PhD Active LUTEIN 10 MG ORAL TABLET 1 tab daily LUTEIN 71641030 408 Active Hope Benavidez MD PhD Active TRIAMTERENE-HCTZ 37.5-25 MG ORAL TABLET 1 tab by mouth daily 10/22 TRIAMTERENE-HCTZ 89077154229 Active LETY Rossi CYCLOBENZAPRINE HCL 10 MG ORAL TABLET 1 tablet by mout h three times daily as needed for headaches CYCLOBENZAPRINE HCL 37750878675 No Longer Active Adam Yates MD Active OMEPRAZOLE 20 MG ORAL CAPSULE DELAYED RELEASE 1 tablet by mo [facility] daily for GERD OMEPRAZOLE 67004000825 No Longer Active Adam Yates MD Active ZOFRAN 8 MG ORAL TABLET 1 tab by mouth every 12 hours prn 4 ONDANSETRON HCL 93804218876 No Longer Active Adam Yates MD Active PHENADOZ 25 MG RECTAL SUPPOSITORY 1 every 4 hrs. PRN 2 PROMETHAZINE HCL 13912422022 No Longer Active Adam Yates MD A ctive POTASSIUM CHLORIDE 20 MEQ ORAL PACKET by mouth twice a day prn 2 POTASSIUM CHLORIDE 59895037351 No Longer Active Adam Carpenter MD Active PROMETHAZINE HCL 25 MG ORAL TABLET 1 Q. 4 hr. PRN PROMETHAZINE HCL 34973961553 No Longer Active Adam Yates MD Active INNOPRAN XL 120 MG ORAL CAPSULE EXTENDED RELEASE 24 HO UR Take one by mouth daily PROPRANOLOL HCL SR BEADS 97419952540 No Longer Active Adam Yates MD Active FLAGYL 500 MG ORAL TABLET 1 pill by mouth three times daily, for diarrhea METRONIDAZOLE 02314781490 No Longer Active Hope landers MD PhD Active DYAZIDE 37.5-25 MG ORAL CAPSULE 1 qd TRIA MTERENE-HCTZ 59833978625 No Longer Active Hope Benavidez MD PhD Active PROZAC 20 MG ORAL CAPSULE 1 q d FLUOXETINE HCL 92038982837 No Longer Active Hope Benavidez MD PhD Active SIMVASTATIN 40 MG ORAL TABLET 1 qd SIMVAS TATIN 63472088059 No Longer Active Adam Yates MD Active MELOXICAM 15 MG ORAL TABLET 1 qd MELOXICAM 41666267405 No Longer Active Adam Yates MD Active IMODIUM A-D 2 MG ORAL TABLET 2 onset at diarrhea and prn. LOPERAMIDE HCL 30316582969 Active Hope Benavidez MD PhD Active EXCEDRIN EXTRA STRENGTH 250-250-65 MG ORAL TABLET 1-2 q6h ND N headache [id number] 26611253674 Active Hope Benavidez MD PhD Active FLAGYL 500 MG ORAL TABLET 1 qid METRONIDAZOL E 64348774400 No Longer Active Adam Yates MD Active LEVAQUIN 750 MG ORAL TABLET 1 qd LEVOFLOXAC IN 22587990430 No Longer Active Adam Yates MD Active ADULT ASPIRIN LOW STRENGTH 81 MG ORAL TABLET DISINTEGRATING 1 qd ASPIRIN 17496280746 Active Hope Benavidez MD PhD Active LEVAQUIN 750 MG ORAL TABLET 1 qd LEVAQUIN 750 MG ORAL TABLET 332511 LEVOFLOXACIN Inactive FLAGYL 500 MG ORAL TABLET 1 qid FLAGYL 500 MG ORAL TABLET 091110 METRONIDAZOLE Inactive MELOXICAM 15 MG ORAL TABLET 1 qd MELOXICAM 15 MG ORAL TABLET 957977 MELOXICAM Inactive SIMVASTATIN 40 MG ORAL TABLET 1 qd SIMVASTATIN 40 MG ORAL TABLET 442632 SIMVASTATIN Inactive PROZAC 20 MG ORAL CAPSULE 1 q d PROZAC 20 MG ORAL CAPSULE 818241 FLUOXETINE HCL Inactive DYAZIDE 37.5-25 MG ORAL CAPSULE 1 qd 5 DYAZIDE 37.5-25 MG ORAL CAPSULE 983245 TRIAMTERENE-HCTZ Inactive INNOPRAN XL 120 MG ORAL CAPSULE EXTENDED RELEASE 24 HO UR Take one by mouth daily INNOPRAN XL 120 MG ORAL CAPSULE EXTENDED RELEASE 24 HOUR PROPRANOLOL HCL SR BEADS Inactive PROMETHAZINE HCL 25 MG ORAL TABLET 1 Q. 4 hr. PRN 2013 PROMETHAZINE HCL 25 MG ORAL TABLET 737642 PROMETHAZINE HCL Inactive POTASSIUM CHLORIDE 20 MEQ ORAL PACKET by mouth twice a day prn 2 POTASSIUM CHLORIDE 20 MEQ ORAL PACKET 1322411 POTASSIUM CHLORIDE Inactive PHENADOZ 25 MG RECTAL SUPPOSITORY 1 every 4 hrs. PRN 2 PHENADOZ 25 MG RECTAL SUPPOSITORY 929948 PROMETHAZINE HCL Inactive ZOFRAN 8 MG ORAL TABLET 1 tab by mouth every 12 hours prn 4 ZOFRAN 8 MG ORAL TABLET 695420 ONDANSETRON HCL Inactive OMEPRAZOLE 20 MG ORAL CAPSULE DELAYED RELEASE 1 tablet by mo uth daily for GERD OMEPRAZOLE 20 MG ORAL CAPSULE DELAYED RELEASE 19 8051 OMEPRAZOLE Inactive CYCLOBENZAPRINE HCL 10 MG ORAL TABLET 1 tablet by mout h three times daily as needed for headaches CYCLOBENZAPRINE HCL 10 MG ORAL TABLET 270373 CYCLOBENZAPRINE HCL Inactive VITAMIN D3 4000 IU 1 tab 3 times daily VITAMIN D3 4000 IU Inactive PROPRANOLOL HCL 80 MG ORAL TABLET 1 tab tue. and thur. PROPRANOLOL HCL 80 MG ORAL TABLET 200216 PROPRANOLOL HCL Inacti ve CYANOCOBALAMIN 1000 MCG/ML INJECTION SOLUTION 1 injection ev ruben 2 weeks CYANOCOBALAMIN 1000 MCG/ML INJECTION SOLUTION 30 9594 CYANOCOBALAMIN Inactive MAGNESIUM GLUCONATE 250 MG ORAL TABLET 1 tab tid 20 23/10/23 MAGNESIUM GLUCONATE 250 MG ORAL TABLET 114451 MAGNESIUM GLUCONATE Inactive LOMOTIL 2.5-0.025 MG ORAL TABLET 1 tab by mouth prn 20 23/10/23 LOMOTIL 2.5-0.025 MG ORAL TABLET 6849819 DIPHENOXYLATE-ATROPINE Inac tive FLORANEX ORAL PACKET 1 pack three times daily, for bowel health FLORANEX ORAL PACKET LACTOBACILLUS Inactive IRON 325 (65 Fe) MG ORAL TABLET 1 every other day 2015 IRON 325 (65 Fe) MG ORAL TABLET 411398 FERROUS SULFATE Inactive FLAGYL 500 MG ORAL TABLET 1 pill by mouth three times daily, for diarrhea FLAGYL 500 MG ORAL TABLET 233220 METRONIDAZOLE I nactive BACTRIM DS 800-160 MG ORAL TABLET 1 pill by mouth twice claudio y, for UTI BACTRIM DS 800-160 MG ORAL TABLET 560396 SULFAMETHOXAZOLE-TRIMETHOPRIM Inactive Advance Directives Directive Description Start [...] ... - Chemistry sodium, serum 138 mmol/L 861-558 5759/12/15 potassium, serum 4.0 mmol/L 3.5-5.2 chloride, serum [...] 11 .0-15.0 platelet count 157 THOUSAND/UL 10*3/mm3 618-682 4864/04/20 mean platelet volume 8.9 fL 7.5-12.5 Lab Report: CEA - Serology carcinoembryonic antigen 0.9 ng/mL Encounters Code Encounter Date Provider Facility CPT-21816 Level 2 Est. Patient 14:27:16 COMMUNITY LIAISON OFFICER Kylie boyd [facility] CPT-93642 Level 3 Est. Patient 17:54:48 CDT Kylie boyd [facility] CPT-76859 Level 3 Est. Patient 16:26:30 CDT Kina blackmon [facility] CPT-27022 Level 3 New Patient 16:22:01 COMMUNITY LIAISON OFFICER Adam Yates MD [facility] CPT-64763 Level 4 Est. Patient 17:00:48 CDT [facility] CPT-63863 Level 3 Est. Patient 13:15:54 CDT Kylie boyd [facility] CPT-93540 Level 3 Est. Patient 09:10:11 CDT Kylie boyd [facility] CPT-55914 Level 4 Est. Patient 12:08:30 COMMUNITY LIAISON OFFICER Hope cohn MD [facility] CPT-76761 Level 4 Est. Patient 19:08:42 COMMUNITY LIAISON OFFICER Hope cohn MD PhD [facility] CPT-51993 Level 4 Est. Patient 20:04:51 CDT Hope cohn MD PhD [facility] CPT-00356 Level 3 New Patient 01:46:11 COMMUNITY LIAISON OFFICER Hope landers MD PhD [facility] Procedures Code Procedure Name Date Entry Date Standard Desc ription CPT-38533 Microalbumin - LAB USE ONLY 09:41:32 COMMUNITY LIAISON OFFICER 20 23/01/15 CPT-09945 Free T4 - LAB USE ONLY 09:41:32 COMMUNITY LIAISON OFFICER CPT-90526 TSH - LAB USE ONLY 09:41:32 COMMUNITY LIAISON OFFICER CPT-28625 BMP - LAB USE ONLY 09:41:32 COMMUNITY LIAISON OFFICER CPT-82228 Venipuncture Draw Fee 09:41:32 COMMUNITY LIAISON OFFICER CPT-29444 First Vx - Ix admin for Medicare patients 11:19:30 CDT CPT-65710 Fluzone High-Dose Intramuscular Suspension 12/07 11:19:30 CDT CPT-J0897 Prolia 60 mg 14:55:42 CDT CPT-97487 Abx/Therapy Injection 14:55:42 CDT CPT-64419 Bone Density - XRAY USE ONLY 10:27:12 CDT 2 CPT-G0439 Subsequent Annual Wellness Exam 17:54:53 CDT CPT-60286 Foot, left, comp min 3V - XRAY USE ONLY 12:22:49 CDT CPT-G0009 Administration of Pneumococcal Vaccine 3 12:18:00 CDT CPT-82130 Pneumovax 23 Injection Injectable 25 MCG /0.5ML 12:18:00 CDT CPT-J0897 Prolia 60 mg 14:14:16 COMMUNITY LIAISON OFFICER CPT-45859 Abx/Therapy Injection 14:14:15 COMMUNITY LIAISON OFFICER CPT-78513 Lipid - LAB USE ONLY 10:01:52 COMMUNITY LIAISON OFFICER 2 CPT-89364 Calcium - LAB USE ONLY 10:01:51 COMMUNITY LIAISON OFFICER CPT-14610 Venipuncture Draw Fee 10:01:51 COMMUNITY LIAISON OFFICER CPT-LR Lesion Removal 16:22:01 COMMUNITY LIAISON OFFICER CPT-99972 TSH - LAB USE ONLY 14:26:02 CDT CPT-16862 CMP - LAB USE ONLY 14:26:01 CDT CPT-71777 CBC with Diff - LAB USE ONLY 14:26:01 CDT 2 CPT-38561 Venipuncture Draw Fee 14:26:01 CDT CPT-34652 First Vx - Ix admin for Medicare patients 13:27:08 CDT CPT-49075 Fluzone High-Dose Intramuscular Suspension 11/26 13:27:08 CDT CPT-G0438 Initial Annual Wellness Exam 14:19:57 CD T CPT-G0009 Administration of Pneumococcal Vaccine 9 11:36:25 CDT CPT-52375 Prevnar 13 Intramuscular Suspension 1 1:36:25 CDT CPT-88685 Prevnar 13 Intramuscular Suspension 1 0:40:58 CDT CPT-J0897 Prolia 60 mg 10:37:16 CDT CPT-62948 Abx/Therapy Injection 10:37:16 CDT CPT-J0897 Prolia 60 mg 16:09:34 COMMUNITY LIAISON OFFICER CPT-J0897 Prolia 60 mg 11:10:35 COMMUNITY LIAISON OFFICER CPT-87771 Abx/Therapy Injection 11:10:35 COMMUNITY LIAISON OFFICER CPT-000 Give Appropriate Flu Vaccine 17:01:15 COMMUNITY LIAISON OFFICER 2 CPT-18781 Fluzone High Dose (65+) 15:03:08 COMMUNITY LIAISON OFFICER 02/15 CPT-38909 Immunization Single Admin 15:03:08 COMMUNITY LIAISON OFFICER 2014 CPT-OV Office Visit 15:58:06 CDT CPT-J0897 Prolia 60 mg 08:45:38 CDT CPT-25282 Abx/Therapy Injection 08:45:38 CDT CPT-J3420 Vitamin B12 1000mcg (Cyanocobalamin) 09:26:20 COMMUNITY LIAISON OFFICER CPT-12132 Abx/Therapy Injection 09:26:20 COMMUNITY LIAISON OFFICER CPT-J3420 Vitamin B12 1000mcg (Cyanocobalamin) 09:44:40 COMMUNITY LIAISON OFFICER CPT-71528 Abx/Therapy Injection 09:44:40 COMMUNITY LIAISON OFFICER CPT-J3420 Vitamin B12 1000mcg (Cyanocobalamin) 09:15:54 COMMUNITY LIAISON OFFICER CPT-05978 Abx/Therapy Injection 09:15:54 COMMUNITY LIAISON OFFICER CPT-J3420 Vitamin B12 1000mcg (Cyanocobalamin) 09:46:44 COMMUNITY LIAISON OFFICER CPT-98364 Abx/Therapy Injection 09:46:44 COMMUNITY LIAISON OFFICER CPT-J3420 Vitamin B12 1000mcg (Cyanocobalamin) 09:47:34 COMMUNITY LIAISON OFFICER CPT-40339 Abx/Therapy Injection 09:47:34 COMMUNITY LIAISON OFFICER CPT-J3420 Vitamin B12 1000mcg (Cyanocobalamin) 14:35:50 COMMUNITY LIAISON OFFICER CPT-J3420 Vitamin B12 1000mcg (Cyanocobalamin) 09:25:05 COMMUNITY LIAISON OFFICER CPT-41310 Abx/Therapy Injection 09:25:05 COMMUNITY LIAISON OFFICER CPT-G0008 Administration of Influenza Virus Vaccine 13:36:47 CDT CPT-75559 Fluzone High-Dose Intramuscular Suspension 11/15 13:36:47 CDT CPT-J0897 Prolia 60 mg 08:50:41 CDT CPT-29231 Abx/Therapy Injection 08:50:41 CDT CPT-54672 Bone Density 12:06:12 CDT CPT-09372 Bone Density 08:54:40 CDT CPT-OV Office Visit 15:37:02 CDT CPT-14111 Postop F/U Visit 15:47:49 CDT CPT-68506 Postop F/U Visit 15:21:02 CDT CPT-TCMH Transitional Care Mgmt-High 07:52:27 CDT 20 20/06/01 CPT-34590 Venipuncture Draw Fee 13:51:18 CDT CPT-34129 Venipuncture Draw Fee 10:14:55 COMMUNITY LIAISON OFFICER CPT-38618 Venipuncture Draw Fee 13:39:45 COMMUNITY LIAISON OFFICER CPT-OV Office Visit 15:11:22 COMMUNITY LIAISON OFFICER CPT-30963 Venipuncture Draw Fee 09:20:49 COMMUNITY LIAISON OFFICER CPT-26056 Venipuncture Draw Fee 16:52:15 COMMUNITY LIAISON OFFICER CPT-00964 Venipuncture Draw Fee 10:37:24 COMMUNITY LIAISON OFFICER CPT-64182 Venipuncture Draw Fee 08:21:21 COMMUNITY LIAISON OFFICER CPT-34420 Venipuncture Draw Fee 08:30:20 COMMUNITY LIAISON OFFICER CPT-27342 Venipuncture Draw Fee 14:53:21 COMMUNITY LIAISON OFFICER CPT-07710 Venipuncture Draw Fee 09:40:56 COMMUNITY LIAISON OFFICER CPT-00565 Venipuncture Draw Fee 10:30:47 COMMUNITY LIAISON OFFICER CPT-70404 Venipuncture Draw Fee 10:46:17 COMMUNITY LIAISON OFFICER CPT-82548 Venipuncture Draw Fee 11:12:45 COMMUNITY LIAISON OFFICER CPT-03550 Venipuncture Draw Fee 09:53:33 COMMUNITY LIAISON OFFICER CPT-31692 Venipuncture Draw Fee 11:53:51 COMMUNITY LIAISON OFFICER CPT-69279 Venipuncture Draw Fee 10:33:50 COMMUNITY LIAISON OFFICER CPT-42048 Venipuncture Draw Fee 10:05:01 COMMUNITY LIAISON OFFICER CPT-48209 Venipuncture Draw Fee 14:32:52 COMMUNITY LIAISON OFFICER CPT-45911 Venipuncture Draw Fee 09:46:13 COMMUNITY LIAISON OFFICER CPT-36612 Venipuncture Draw Fee 11:34:27 COMMUNITY LIAISON OFFICER CPT-47677 Venipuncture Draw Fee 13:17:16 COMMUNITY LIAISON OFFICER CPT-94818 Venipuncture Draw Fee 12:05:39 CDT CPT-61019 Venipuncture Draw Fee 12:49:12 CDT CPT-31110 Venipuncture Draw Fee 12:37:18 CDT CPT-23785 Venipuncture Draw Fee 10:57:11 CDT CPT-82987 Venipuncture Draw Fee 13:47:40 CDT CPT-37915 Venipuncture Draw Fee 10:02:17 CDT CPT-52955 TB Tubersol 17:32:32 CDT CPT-OV Office Visit 16:21:53 CDT CPT-OV Office Visit 15:49:22 CDT CPT-OV Office Visit 17:16:31 CDT CPT-OV Office Visit 10:43:31 CDT
--- OUTSIDE RECORDS SUMMARY | 2019-02-09 12:27 | XMS REPORT | Clinical Summary ---
Author Author Renaldo, Florecita Munoz Organization [facility] Address Unknown Phone Unavailable Allergies, Adverse Reactions, [...] PhD Hyperpotassemia GERD 530.81 Resolved Kylie Yokum FLUME WORKER Esophageal reflux Health maintenance exam V70.0 Resolved Adolfo Yates MD Routine general medical examination at a health care facility Anemia 285.9 Resolved Kylie Holt FLUME WORKER Anemia, unspecified Personal history of malignant neoplasm [...] ascending colon Sebaceous cyst, scalp 706.2 Resolved Kylieshubham Lundum FLUME WORKER Sebaceous cyst Cervical lymphadenopathy, anterior, left 785.6 Resolv ed Kylie Escalonagabbium FLUME WORKER Enlargement of lymph nodes Need for prophylactic vaccination and inoculation against in fluenza V04.81 Active Citlaly Watkins RMA Need for prophylactic vaccination and inoculation against influenza Preventive health care V70.0 Active Kylie Polapari FLUME WORKER Routine general medical examination at a health care facility Thyroid nodule, left 241.0 Active Kylie Polagabbium A PRN Nontoxic uninodular goiter ABDOMINAL PAIN, RIGHT LOWER QUADRANT ICD-789.03 Inactive Kina Joshua FLUME WORKER ADENOCARCINOMA, COLON, 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 Dick Yates MD ABDOMINAL PAIN, GENERALIZED ICD-789.07 Inactive Hope Benavidez MD PhD FEVER UNSPECIFIED ICD-780.60 Inactive Hope cohn MD PhD UNSPECIFIED VENOUS INSUFFICIENCY ICD-459.81 [place] ctive Adam Yates MD ADENOCARCINOMA, 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 Inac tive Hope Benavidez MD PhD Hyperkalemia ICD-276.7 Inactive Hope Benavidez MD PhD GERD ICD-530.81 Inactive Kylie Holt FLUME WORKER 2015 Health maintenance exam ICD-V70.0 Bam Yates MD Anemia ICD-285.9 Inactive Kylie Lundum FLUME WORKER 07/24 Weakness ICD-780.79 Inactive Hope Benavidez MD P hD Aftercare following surgery of the teeth,oral cavity a nd digestive system, NEC ICD-V58.75 Inactive Adam Yates MD Colon cancer ICD-153.9 Inactive Adam luna MD Asymptomatic postmenopausal status (age-related) (natural) I CD-V49.81 Inactive Hope Benavidez MD PhD Dysuria ICD-788.1 Inactive Hope Benavidez MD PhD 201 05/19/01 Sebaceous cyst, scalp ICD-706.2 Inactive Tracy Lundum FLUME WORKER Cervical lymphadenopathy, anterior, left ICD-785.6 Inactive Kylie Lundum FLUME WORKER Medication List Medication Instructions Start Date Stop Date Generic Name NDC Status Provider Patient Instruction VITAMIN D3 2000 UNIT ORAL CAPS Melaleuca-One daily CHOLECALCIFEROL [id number] Active Kylie Lundum FLUME WORKER Active PROBIOTIC DAILY ORAL CAPS Take one daily PROBIOTIC PRODUCT 41085848902 Active Kylie Yokum FLUME WORKER Active IRON 325 (65 FE) MG TABS 1 every other day FERR OUS SULFATE 84707067293 No Longer Active Kylie Yokum FLUME WORKER Active FLORANEX PACK 1 pack three times daily, for bowel health LACTOBACILLUS 30451069384 No Longer Active Kylie Yokum FLUME WORKER Active LOMOTIL 2.5-0.025 MG TABS 1 tab by mouth prn 4 DIPHENOXYLATE-ATROPINE 55487205064 No Longer Active Kylie Yokum FLUME WORKER Active MAGNESIUM GLUCONATE 250 MG TABS 1 tab tid 4 MAGNESIUM GLUCONATE 63727816778 No Longer Active Kylie Yokum FLUME WORKER Active CYANOCOBALAMIN 1000 MCG/ML INJ SOLN 1 injection every 2 weeks 20 20/01/03 CYANOCOBALAMIN 69037464115 No Longer Active Kylie Yokum FLUME WORKER Active ATENOLOL 25 MG ORAL TABS 1/2 pill by mouth daily, for headac hes, blood pressure ATENOLOL 56280694801 Active Kylie Yokum FLUME WORKER Active PROPRANOLOL HCL 80 MG TABS 1 tab tue. and thur. 04/10 PROPRANOLOL HCL 78744171372 No Longer Active Hope Benavidez MD PhD A ctive VITAMIN D3 4000 IU 1 tab 3 times daily VITAMIN D3 4000 IU No Longer Active Hope Benavidez MD PhD Active BACTRIM DS 800-160 MG TABS 1 pill by mouth twice daily, for UTI SULFAMETHOXAZOLE-TRIMETHOPRIM 41520289705 No Longer Active A attila Benavidez MD PhD Active PROLIA 60 MG/ML SOLN 1 shot every 6 months for osteoprosis DENOSUMAB 16187246232 Active Hope Benavidez MD PhD Active CALCIUM + D + K 750-500-40 MG-UNT-MCG TABS 1 tab by mouth tw ice daily CALCIUM-VITAMIN D-VITAMIN K 96361937737 Active Hope landers MD PhD Active DAILY VALUE MULTIVITAMIN TABS 1 tab by mouth twice daily MULTIPLE VITAMIN 50402323811 Active Hope Benavidez MD PhD Active FISH OIL 306 MG CAPS 1 tab by mouth three times daily OMEGA-3 FATTY ACIDS 24436150909 Active Hope Benavidez MD PhD Active LUTEIN 10 MG TABS 1 tab daily LUTEIN 76165672912 Act cash Hope Benavidez MD PhD Active TRIAMTERENE-HCTZ 37.5-25 MG TABS 1 tab by mouth daily TRIAMTERENE-HCTZ 24900914315 Active Kylie Yokum FLUME WORKER Active CYCLOBENZAPRINE HCL 10 MG TABS 1 tablet by mouth three times daily as needed for headaches CYCLOBENZAPRINE HCL 21191191263 No Longe r Active Adam Yates MD Active OMEPRAZOLE 20 MG CPDR 1 tablet by mouth daily for GERD OMEPRAZOLE 58720824485 No Longer Active Adam Yates MD A ctive ZOFRAN 8 MG TABS 1 tab by mouth every 12 hours prn 201 05/16/09 ONDANSETRON HCL 05692872900 No Longer Active Adam Yates MD Active PHENADOZ 25 MG SUPP 1 every 4 hrs. PRN PROMETHA ZINE HCL 80394188258 No Longer Active Adam Yates MD Active POTASSIUM CHLORIDE 20 MEQ PACK by mouth twice a day prn POTASSIUM CHLORIDE 78462942685 No Longer Active Adam Yates MD Active PROMETHAZINE HCL 25 MG TABS 1 Q. 4 hr. PRN PROM ETHAZINE HCL 76582430746 No Longer Active Adam Yates MD Active INNOPRAN XL 120 MG [id number] Take one by mouth daily 2 PROPRANOLOL HCL SR BEADS 66306047051 No Longer Active Adam Yates MD A ctive FLAGYL 500 MG TABS 1 pill by mouth three times daily, for diarrh ea METRONIDAZOLE 01987291574 No Longer Active Hope Benavidez MD PhD Active DYAZIDE 37.5-25 MG CAPS 1 qd TRIAMTERENE-HC TZ 93009148541 No Longer Active Hope Benavidez MD PhD Active PROZAC 20 MG CAPS 1 q d FLUOXETINE HCL 84093 778434 No Longer Active Hope Benavidez MD PhD Active SIMVASTATIN 40 MG TABS 1 qd SIMVASTATIN 004 36762350 No Longer Active Adam Yates MD Active MELOXICAM 15 MG TABS 1 qd MELOXICAM 8839521 6735 No Longer Active Adam Yates MD Active IMODIUM A-D 2 MG TABS 2 onset at diarrhea and prn. LOPERAMIDE HCL 87433492860 Active Hope Benavidez MD PhD Active EXCEDRIN EXTRA STRENGTH 250-250-65 MG TABS 1-2 q6h PRN headache 201 04/16/21 [id number] 51027154648 Active Hope Benavidez MD PhD Active FLAGYL 500 MG TABS 1 qid METRONIDAZOLE 32831 942884 No Longer Active Adam Yates MD Active LEVAQUIN 750 MG TABS 1 qd LEVOFLOXACIN 5486 3497189 No Longer Active Adam Yates MD Active ADULT ASPIRIN LOW STRENGTH 81 MG TBDP 1 qd A SPIRIN 29383719262 Active Hope Benavidez MD PhD Active LEVAQUIN 750 MG TABS 1 qd LEVAQUIN 750 MG T ABS 772727 LEVOFLOXACIN Inactive FLAGYL 500 MG TABS 1 qid FLAGYL 500 MG TABS 456203 METRONIDAZOLE Inactive MELOXICAM 15 MG TABS 1 qd MELOXICAM 15 MG T ABS 422191 MELOXICAM Inactive SIMVASTATIN 40 MG TABS 1 qd SIMVASTATIN 40 MG TABS 363805 SIMVASTATIN Inactive PROZAC 20 MG CAPS 1 q d PROZAC 20 MG CAPS 31 0385 FLUOXETINE HCL Inactive DYAZIDE 37.5-25 MG CAPS 1 qd DYAZIDE 37.5 -25 MG CAPS 125548 TRIAMTERENE-HCTZ Inactive INNOPRAN XL 120 MG [id number] Take one by mouth daily 2 INNOPRAN XL 120 MG [id number] PROPRANOLOL HCL SR BEADS Inactive PROMETHAZINE HCL 25 MG TABS 1 Q. 4 hr. PRN PROMETHAZINE HCL 25 MG TABS 645137 PROMETHAZINE HCL Inactive POTASSIUM CHLORIDE 20 MEQ PACK by mouth twice a day prn POTASSIUM CHLORIDE 20 MEQ PACK 524651 POTASSIUM CHLORIDE Inactive PHENADOZ 25 MG SUPP 1 every 4 hrs. PRN PHENADOZ 2 5 MG SUPP 480658 PROMETHAZINE HCL Inactive ZOFRAN 8 MG TABS 1 tab by mouth every 12 hours prn 201 05/16/09 ZOFRAN 8 MG TABS 730638 ONDANSETRON HCL Inactive OMEPRAZOLE 20 MG CPDR 1 tablet by mouth daily for GERD OMEPRAZOLE 20 MG CPDR 671514 OMEPRAZOLE Inactive CYCLOBENZAPRINE HCL 10 MG TABS 1 tablet by mouth three times daily as needed for headaches CYCLOBENZAPRINE HCL 10 MG TABS 155723 CYCLOBENZAPRINE HCL Inactive VITAMIN D3 4000 IU 1 tab 3 times daily VITAMIN D3 4000 IU Inactive PROPRANOLOL HCL 80 MG TABS 1 tab tue. and thur. 04/10 PROPRANOLOL HCL 80 MG TABS 981207 PROPRANOLOL HCL Inactive CYANOCOBALAMIN 1000 MCG/ML INJ SOLN 1 injection every 2 weeks 20 20/01/03 CYANOCOBALAMIN 1000 MCG/ML INJ SOLN 429206 CYANOCOBALAM IN Inactive MAGNESIUM GLUCONATE 250 MG TABS 1 tab tid 4 MAGNESIUM GLUCONATE 250 MG TABS 070207 MAGNESIUM GLUCONATE Inactive LOMOTIL 2.5-0.025 MG TABS 1 tab by mouth prn 4 LOMOTIL 2.5- 0.025 MG TABS 0565999 DIPHENOXYLATE-ATROPINE Inactive FLORANEX PACK 1 pack three times daily, for bowel health FLORANEX PACK LACTOBACILLUS Inactive IRON 325 (65 FE) MG TABS 1 every other day IRON 325 (65 FE) MG TABS 717681 FERROUS SULFATE Inactive FLAGYL 500 MG TABS 1 pill by mouth three times daily, for diarrh ea FLAGYL 500 MG TABS 725503 METRONIDAZOLE Inactive BACTRIM DS 800-160 MG TABS 1 pill by mouth twice daily, for UTI BACTRIM DS 800-160 MG TABS 136486 SULFAMETHOXAZOLE-TRIM ETHOPRIM Inactive Advance Directives Directive Description [...] Panel - Chemistry sodium, serum 142 mmol/L 114-155 6517/04/20 carbon dioxide, venous blood 34.7 mmol/L 21.0-32 .0 potassium, serum 3.5 mmol/L 3.5-5.2 chloride, serum 102 mmol/L 98-107 blood glucose 102 mg/dL 65-110 urea nitrogen, blood 24 mg/dL 7-18 creatinine, serum 1.37 mg/dL 0.55-1.30 alanine aminotransferase (SGPT), serum 72 U/L -78 aspartate aminotransferase (SGOT), serum 44 U/L 15-37 calcium, serum 9.0 mg/dL 8.5-10.1 bilirubin, serum, total 0.50 mg/dL 0.00-1.00 sodium, serum 138 mmol/L 388-322 6516/10/23 carbon dioxide, venous blood 29.5 mmol/L 21.0-32 [...] 11 .6-14.8 platelet count 189 10^3/MM^3 10*3/mm3 310-809 4228/04/20 leukocyte count, blood 5.9 10^3/MM^3 10*3/mm3 4.6-10.2 [...] 1.24 m[iU]/mL 0.36-3.74 cholesterol, serum 227 mg/dL 653-668 0249/10/23 triglyceride, serum, fasting 144 mg/dL 30-200 HDL cholesterol, serum 60 mg/dL 32-96 LDL cholesterol, serum 138 mg/dL 0-130 Lab Report: Lipid Panel, MICROALBUMIN, T hyroid Stimulating Hormone (L) - Lab microalbumin, urine 10 0-19 Encounters Code Encounter Date Provider Facility CPT-23094 Level 4 Est. Patient 17:00:48 CDT Kylie Lund [facility] CPT-20084 Level 3 Est. Patient 13:15:54 CDT Kylie Lund [facility] CPT-43682 Level 3 Est. Patient 09:10:11 CDT Kylie Lund [facility] CPT-05297 Level 4 Est. Patient 12:08:30 CHEMICALS FERMENTATION OPERATOR Hope cohn MD PhD [facility] CPT-15106 Level 4 Est. Patient 19:08:42 CHEMICALS FERMENTATION OPERATOR Hope cohn MD PhD [facility] CPT-73896 Level 4 Est. Patient 20:04:51 CDT Hope cohn MD PhD [facility] CPT-97661 Level 3 New Patient 01:46:11 CHEMICALS FERMENTATION OPERATOR Hope landers MD PhD [facility] Procedures Code Procedure Name Date Entry Date Standard Desc ription CPT-G0438 Initial Annual Wellness Exam 14:19:57 CD T CPT-G0009 Administration of Pneumococcal Vaccine 9 11:36:25 CDT CPT-43734 Prevnar 13 Intramuscular Suspension 1 1:36:25 CDT CPT-17604 Prevnar 13 Intramuscular Suspension 1 0:40:58 CDT CPT-J0897 Prolia 60 mg 10:37:16 CDT CPT-82213 Abx/Therapy Injection 10:37:16 CDT CPT-J0897 Prolia 60 mg 16:09:34 CHEMICALS FERMENTATION OPERATOR CPT-J0897 Prolia 60 mg 11:10:35 CHEMICALS FERMENTATION OPERATOR CPT-55347 Abx/Therapy Injection 11:10:35 CHEMICALS FERMENTATION OPERATOR CPT-000 Give Appropriate Flu Vaccine 17:01:15 CHEMICALS FERMENTATION OPERATOR 2 CPT-23814 Fluzone High Dose (65+) 15:03:08 CHEMICALS FERMENTATION OPERATOR 02/15 CPT-67951 Immunization Single Admin 15:03:08 CHEMICALS FERMENTATION OPERATOR 2014 CPT-OV Office Visit 15:58:06 CDT CPT-J0897 Prolia 60 mg 08:45:38 CDT CPT-40294 Abx/Therapy Injection 08:45:38 CDT CPT-J3420 Vitamin B12 1000mcg (Cyanocobalamin) 09:26:20 CHEMICALS FERMENTATION OPERATOR CPT-01655 Abx/Therapy Injection 09:26:20 CHEMICALS FERMENTATION OPERATOR CPT-J3420 Vitamin B12 1000mcg (Cyanocobalamin) 09:44:40 CHEMICALS FERMENTATION OPERATOR CPT-13838 Abx/Therapy Injection 09:44:40 CHEMICALS FERMENTATION OPERATOR CPT-J3420 Vitamin B12 1000mcg (Cyanocobalamin) 09:15:54 CHEMICALS FERMENTATION OPERATOR CPT-18126 Abx/Therapy Injection 09:15:54 CHEMICALS FERMENTATION OPERATOR CPT-J3420 Vitamin B12 1000mcg (Cyanocobalamin) 09:46:44 CHEMICALS FERMENTATION OPERATOR CPT-28826 Abx/Therapy Injection 09:46:44 CHEMICALS FERMENTATION OPERATOR CPT-J3420 Vitamin B12 1000mcg (Cyanocobalamin) 09:47:34 CHEMICALS FERMENTATION OPERATOR CPT-84680 Abx/Therapy Injection 09:47:34 CHEMICALS FERMENTATION OPERATOR CPT-J3420 Vitamin B12 1000mcg (Cyanocobalamin) 14:35:50 CHEMICALS FERMENTATION OPERATOR CPT-J3420 Vitamin B12 1000mcg (Cyanocobalamin) 09:25:05 CHEMICALS FERMENTATION OPERATOR CPT-09948 Abx/Therapy Injection 09:25:05 CHEMICALS FERMENTATION OPERATOR CPT-G0008 Administration of Influenza Virus Vaccine 13:36:47 CDT CPT-45631 Fluzone High-Dose Intramuscular Suspension 11/15 13:36:47 CDT CPT-J0897 Prolia 60 mg 08:50:41 CDT CPT-08740 Abx/Therapy Injection 08:50:41 CDT CPT-01236 Bone Density 12:06:12 CDT CPT-38565 Bone Density 08:54:40 CDT CPT-OV Office Visit 15:37:02 CDT CPT-25103 Postop F/U Visit 15:47:49 CDT CPT-10533 Postop F/U Visit 15:21:02 CDT CPT-TCMH Transitional Care Mgmt-High 07:52:27 CDT 20 20/06/01 CPT-79837 Venipuncture Draw Fee 13:51:18 CDT CPT-67099 Venipuncture Draw Fee 10:14:55 CHEMICALS FERMENTATION OPERATOR CPT-32118 Venipuncture Draw Fee 13:39:45 CHEMICALS FERMENTATION OPERATOR CPT-OV Office Visit 15:11:22 CHEMICALS FERMENTATION OPERATOR CPT-86603 Venipuncture Draw Fee 09:20:49 CHEMICALS FERMENTATION OPERATOR CPT-90956 Venipuncture Draw Fee 16:52:15 CHEMICALS FERMENTATION OPERATOR CPT-86760 Venipuncture Draw Fee 10:37:24 CHEMICALS FERMENTATION OPERATOR CPT-39707 Venipuncture Draw Fee 08:21:21 CHEMICALS FERMENTATION OPERATOR CPT-77641 Venipuncture Draw Fee 08:30:20 CHEMICALS FERMENTATION OPERATOR CPT-11646 Venipuncture Draw Fee 14:53:21 CHEMICALS FERMENTATION OPERATOR CPT-67759 Venipuncture Draw Fee 09:40:56 CHEMICALS FERMENTATION OPERATOR CPT-06360 Venipuncture Draw Fee 10:30:47 CHEMICALS FERMENTATION OPERATOR CPT-28337 Venipuncture Draw Fee 10:46:17 CHEMICALS FERMENTATION OPERATOR CPT-83407 Venipuncture Draw Fee 11:12:45 CHEMICALS FERMENTATION OPERATOR CPT-50965 Venipuncture Draw Fee 09:53:33 CHEMICALS FERMENTATION OPERATOR CPT-46845 Venipuncture Draw Fee 11:53:51 CHEMICALS FERMENTATION OPERATOR CPT-62756 Venipuncture Draw Fee 10:33:50 CHEMICALS FERMENTATION OPERATOR CPT-18141 Venipuncture Draw Fee 10:05:01 CHEMICALS FERMENTATION OPERATOR CPT-67135 Venipuncture Draw Fee 14:32:52 CHEMICALS FERMENTATION OPERATOR CPT-53001 Venipuncture Draw Fee 09:46:13 CHEMICALS FERMENTATION OPERATOR CPT-72545 Venipuncture Draw Fee 11:34:27 CHEMICALS FERMENTATION OPERATOR CPT-69582 Venipuncture Draw Fee 13:17:16 CHEMICALS FERMENTATION OPERATOR CPT-90361 Venipuncture Draw Fee 12:05:39 CDT CPT-11911 Venipuncture Draw Fee 12:49:12 CDT CPT-90093 Venipuncture Draw Fee 12:37:18 CDT CPT-46758 Venipuncture Draw Fee 10:57:11 CDT CPT-35219 Venipuncture Draw Fee 13:47:40 CDT CPT-50625 Venipuncture Draw Fee 10:02:17 CDT CPT-11313 TB Tubersol 17:32:32 CDT CPT-OV Office Visit 16:21:53 CDT CPT-OV Office Visit 15:49:22 CDT CPT-OV Office Visit 17:16:31 CDT CPT-OV Office Visit 10:43:31 CDT
--- OUTSIDE RECORDS SUMMARY | 2019-02-09 12:27 | XMS REPORT | Clinical Summary ---
Author Author Renaldo, Florecita Munoz Organization [facility] [employer] Address Unknown Phone Unavailable Allergies, Adverse Reactions, [...] PhD Hyperpotassemia GERD 530.81 Resolved Kylie Yokum [employer]PER [employer] PRESERVER Esophageal reflux Health maintenance exam V70.0 Resolved Adolfo Yates MD Routine general medical examination at a health care facility Anemia 285.9 Resolved Kylie Holt [employer]ERVER Anemia, unspecified Personal history of malignant neoplasm [...] Sebaceous cyst, scalp 706.2 Resolved Kylie Yopari [employer]ERVER Sebaceous cyst Cervical lymphadenopathy, anterior, left 785.6 Resolv ed Kylie Yopari [employer] PRESERVER Enlargement of lymph nodes Need for prophylactic vaccination and inoculation against in fluenza V04.81 Active Citlaly Watkins RMA Need for prophylactic vaccination and inoculation against influenza Preventive health care V70.0 Active Kylie Holt [employer]ER Routine general medical examination at a health care facility Thyroid nodule, left 241.0 Active Kylie Polagabbium A PRN Nontoxic uninodular goiter ABDOMINAL PAIN, RIGHT LOWER QUADRANT ICD-789.03 Inactive Kina Joshua [employer] PRESERVER ADENOCARCINOMA, COLON, 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 Dick Yates MD ABDOMINAL PAIN, GENERALIZED ICD-789.07 Inactive Hope Benavidez MD PhD FEVER UNSPECIFIED ICD-780.60 Inactive Hope cohn MD PhD UNSPECIFIED VENOUS INSUFFICIENCY ICD-459.81 [place] ctive Adam Yates MD ADENOCARCINOMA, 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 Inac tive Hope Benavidez MD PhD Hyperkalemia ICD-276.7 Inactive Hope Benavidez MD PhD GERD ICD-530.81 Inactive Kylie Holt [employer] PRESERVER 2015 Health maintenance exam ICD-V70.0 Bam Yates MD Anemia ICD-285.9 Inactive Kylie Yokum [employer]PER [employer] PRESERVER 07/24 Weakness ICD-780.79 Inactive Hope Benavidez MD P hD Aftercare following surgery of the teeth,oral cavity a nd digestive system, NEC ICD-V58.75 Inactive Adam Yates MD Colon cancer ICD-153.9 Inactive Adam luna MD Asymptomatic postmenopausal status (age-related) (natural) I CD-V49.81 Inactive Hope Benavidez MD PhD Dysuria ICD-788.1 Inactive Hope Benavidez MD PhD 201 05/19/01 Sebaceous cyst, scalp ICD-706.2 Inactive Tracy Lundum [employer] PRESERVER Cervical lymphadenopathy, anterior, left ICD-785.6 Inactive Kylie Lundum [employer]ERVER Medication List Medication Instructions Start Date Stop Date Generic Name NDC Status Provider Patient Instruction VITAMIN D3 2000 UNIT ORAL CAPS Melaleuca-One daily CHOLECALCIFEROL [id number] Active Kylie Yokum [employer]PER AND PRESERVER Active PROBIOTIC DAILY ORAL CAPS Take one daily PROBIOTIC PRODUCT 28340487314 Active Kylie Yokum [employer]PER [employer] PRESERVER Active IRON 325 (65 FE) MG TABS 1 every other day FERR OUS SULFATE 53171204240 No Longer Active Kylie Yokum [employer]PER [employer] PRESERVER Active FLORANEX PACK 1 pack three times daily, for bowel health LACTOBACILLUS 63371967420 No Longer Active Kylie Yokum [employer]PER AND PRESERVER Active LOMOTIL 2.5-0.025 MG TABS 1 tab by mouth prn 4 DIPHENOXYLATE-ATROPINE 30895944237 No Longer Active Kylie Yokum [employer]PER AND PRESERVER Active MAGNESIUM GLUCONATE 250 MG TABS 1 tab tid 4 MAGNESIUM GLUCONATE 67917396383 No Longer Active Kylie Yokum [employer]PER AND PRESERVER Active CYANOCOBALAMIN 1000 MCG/ML INJ SOLN 1 injection every 2 weeks 20 20/01/03 CYANOCOBALAMIN 32606440804 No Longer Active Kylieshubham Lundum [employer]PER AND PRESERVER Active ATENOLOL 25 MG ORAL TABS 1/2 pill by mouth daily, for headac hes, blood pressure ATENOLOL 47909961616 Active Kylie Yokum [employer]PER AND PRESERVER Active PROPRANOLOL HCL 80 MG TABS 1 tab tue. and thur. 04/10 PROPRANOLOL HCL 06068287425 No Longer Active Hope Benavidez MD PhD A ctive VITAMIN D3 4000 IU 1 tab 3 times daily VITAMIN D3 4000 IU No Longer Active Hope Benavidez MD PhD Active BACTRIM DS 800-160 MG TABS 1 pill by mouth twice daily, for UTI SULFAMETHOXAZOLE-TRIMETHOPRIM 48019785235 No Longer Active A attila Benavidez MD PhD Active PROLIA 60 MG/ML SOLN 1 shot every 6 months for osteoprosis DENOSUMAB 46955852941 Active Hope Benavidez MD PhD Active CALCIUM + D + K 750-500-40 MG-UNT-MCG TABS 1 tab by mouth tw ice daily CALCIUM-VITAMIN D-VITAMIN K 06295340531 Active Hope landers MD PhD Active DAILY VALUE MULTIVITAMIN TABS 1 tab by mouth twice daily MULTIPLE VITAMIN 82137581865 Active Hope Benavidez MD PhD Active FISH OIL 306 MG CAPS 1 tab by mouth three times daily OMEGA-3 FATTY ACIDS 78956454635 Active Hope Benavidez MD PhD Active LUTEIN 10 MG TABS 1 tab daily LUTEIN 25507253416 Act cash Hope Benavidez MD PhD Active TRIAMTERENE-HCTZ 37.5-25 MG TABS 1 tab by mouth daily TRIAMTERENE-HCTZ 70754737903 Active Kylie Lundum [employer]PER AND PRESERVER Active CYCLOBENZAPRINE HCL 10 MG TABS 1 tablet by mouth three times daily as needed for headaches CYCLOBENZAPRINE HCL 25890720599 No Longe r Active Adam Yates MD Active OMEPRAZOLE 20 MG CPDR 1 tablet by mouth daily for GERD OMEPRAZOLE 94134950534 No Longer Active Adam Yates MD A ctive ZOFRAN 8 MG TABS 1 tab by mouth every 12 hours prn 201 05/16/09 ONDANSETRON HCL 97268705100 No Longer Active Adam Yates MD Active PHENADOZ 25 MG SUPP 1 every 4 hrs. PRN PROMETHA ZINE HCL 48040914301 No Longer Active Adam Yates MD Active POTASSIUM CHLORIDE 20 MEQ PACK by mouth twice a day prn POTASSIUM CHLORIDE 61631747802 No Longer Active Adam Yates MD Active PROMETHAZINE HCL 25 MG TABS 1 Q. 4 hr. PRN PROM ETHAZINE HCL 78441980363 No Longer Active Adam Yates MD Active INNOPRAN XL 120 MG [id number] Take one by mouth daily 2 PROPRANOLOL HCL SR BEADS 75369852478 No Longer Active Adam Yates MD A ctive FLAGYL 500 MG TABS 1 pill by mouth three times daily, for diarrh ea METRONIDAZOLE 46674906531 No Longer Active Hope Benvaidez MD PhD Active DYAZIDE 37.5-25 MG CAPS 1 qd TRIAMTERENE-HC TZ 72676397873 No Longer Active Hope Benavidez MD PhD Active PROZAC 20 MG CAPS 1 q d FLUOXETINE HCL 22673 245275 No Longer Active Hope Benavidez MD PhD Active SIMVASTATIN 40 MG TABS 1 qd SIMVASTATIN 004 54972620 No Longer Active Adam Yates MD Active MELOXICAM 15 MG TABS 1 qd MELOXICAM 9961413 6505 No Longer Active Adma Yates MD Active IMODIUM A-D 2 MG TABS 2 onset at diarrhea and prn. LOPERAMIDE HCL 54509486125 Active Hope Benavidez MD PhD Active EXCEDRIN EXTRA STRENGTH 250-250-65 MG TABS 1-2 q6h PRN headache 201 04/16/21 [id number] 73554607805 Active Hope Benavidez MD PhD Active FLAGYL 500 MG TABS 1 qid METRONIDAZOLE 30605 631254 No Longer Active Adam Yaets MD Active LEVAQUIN 750 MG TABS 1 qd LEVOFLOXACIN 5486 3291173 No Longer Active Adam Yates MD Active ADULT ASPIRIN LOW STRENGTH 81 MG TBDP 1 qd A SPIRIN 24682011949 Active Hope Benavidez MD PhD Active LEVAQUIN 750 MG TABS 1 qd LEVAQUIN 750 MG T ABS 885213 LEVOFLOXACIN Inactive FLAGYL 500 MG TABS 1 qid FLAGYL 500 MG TABS 415738 METRONIDAZOLE Inactive MELOXICAM 15 MG TABS 1 qd MELOXICAM 15 MG T ABS 351674 MELOXICAM Inactive SIMVASTATIN 40 MG TABS 1 qd SIMVASTATIN 40 MG TABS 670650 SIMVASTATIN Inactive PROZAC 20 MG CAPS 1 q d PROZAC 20 MG CAPS 31 0385 FLUOXETINE HCL Inactive DYAZIDE 37.5-25 MG CAPS 1 qd DYAZIDE 37.5 -25 MG CAPS 884685 TRIAMTERENE-HCTZ Inactive INNOPRAN XL 120 MG [id number] Take one by mouth daily 2 INNOPRAN XL 120 MG [id number] PROPRANOLOL HCL SR BEADS Inactive PROMETHAZINE HCL 25 MG TABS 1 Q. 4 hr. PRN PROMETHAZINE HCL 25 MG TABS 075832 PROMETHAZINE HCL Inactive POTASSIUM CHLORIDE 20 MEQ PACK by mouth twice a day prn POTASSIUM CHLORIDE 20 MEQ PACK 762783 POTASSIUM CHLORIDE Inactive PHENADOZ 25 MG SUPP 1 every 4 hrs. PRN PHENADOZ 2 5 MG SUPP 873261 PROMETHAZINE HCL Inactive ZOFRAN 8 MG TABS 1 tab by mouth every 12 hours prn 201 05/16/09 ZOFRAN 8 MG TABS 101337 ONDANSETRON HCL Inactive OMEPRAZOLE 20 MG CPDR 1 tablet by mouth daily for GERD OMEPRAZOLE 20 MG CPDR 254577 OMEPRAZOLE Inactive CYCLOBENZAPRINE HCL 10 MG TABS 1 tablet by mouth three times daily as needed for headaches CYCLOBENZAPRINE HCL 10 MG TABS 589158 CYCLOBENZAPRINE HCL Inactive VITAMIN D3 4000 IU 1 tab 3 times daily VITAMIN D3 4000 IU Inactive PROPRANOLOL HCL 80 MG TABS 1 tab tue. and thur. 04/10 PROPRANOLOL HCL 80 MG TABS 856178 PROPRANOLOL HCL Inactive CYANOCOBALAMIN 1000 MCG/ML INJ SOLN 1 injection every 2 weeks 20 20/01/03 CYANOCOBALAMIN 1000 MCG/ML INJ SOLN 262915 CYANOCOBALAM IN Inactive MAGNESIUM GLUCONATE 250 MG TABS 1 tab tid 4 MAGNESIUM GLUCONATE 250 MG TABS 175318 MAGNESIUM GLUCONATE Inactive LOMOTIL 2.5-0.025 MG TABS 1 tab by mouth prn 4 LOMOTIL 2.5- 0.025 MG TABS 2168253 DIPHENOXYLATE-ATROPINE Inactive FLORANEX PACK 1 pack three times daily, for bowel health FLORANEX PACK LACTOBACILLUS Inactive IRON 325 (65 FE) MG TABS 1 every other day IRON 325 (65 FE) MG TABS 899516 FERROUS SULFATE Inactive FLAGYL 500 MG TABS 1 pill by mouth three times daily, for diarrh ea FLAGYL 500 MG TABS 481866 METRONIDAZOLE Inactive BACTRIM DS 800-160 MG TABS 1 pill by mouth twice daily, for UTI BACTRIM DS 800-160 MG TABS 469682 SULFAMETHOXAZOLE-TRIM ETHOPRIM Inactive Advance Directives Directive Description [...] Panel - Chemistry sodium, serum 142 mmol/L 566-919 6074/04/20 carbon dioxide, venous blood 34.7 mmol/L 21.0-32 .0 potassium, serum 3.5 mmol/L 3.5-5.2 chloride, serum 102 mmol/L 98-107 blood glucose 102 mg/dL 65-110 urea nitrogen, blood 24 mg/dL 7-18 creatinine, serum 1.37 mg/dL 0.55-1.30 alanine aminotransferase (SGPT), serum 72 U/L 12-78 aspartate aminotransferase (SGOT), serum 44 U/L 15-37 calcium, serum 9.0 mg/dL 8.5-10.1 bilirubin, serum, total 0.50 mg/dL 0.00-1.00 sodium, serum 138 mmol/L 716-208 0021/10/23 carbon dioxide, venous blood 29.5 mmol/L 21.0-32 [...] 11 .6-14.8 platelet count 189 10^3/MM^3 10*3/mm3 579-754 5743/04/20 leukocyte count, blood 5.9 10^3/MM^3 10*3/mm3 4.6-10.2 [...] 1.24 m[iU]/mL 0.36-3.74 cholesterol, serum 227 mg/dL 158-275 8744/10/23 triglyceride, serum, fasting 144 mg/dL 30-200 HDL cholesterol, serum 60 mg/dL 32-96 LDL cholesterol, serum 138 mg/dL 0-130 Lab Report: Lipid Panel, MICROALBUMIN, T hyroid Stimulating Hormone (L) - Lab microalbumin, urine 10 0-19 Encounters Code Encounter Date Provider Facility CPT-56692 Level 4 Est. [facility] CPT-30047 Level 3 Est. Patient 13:15:54 [facility] CPT-81993 Level 3 Est. Patient 09:10:11 CDT [facility] CPT-88295 Level 4 Est. Patient 12:08:30 [employer] Hope cohn MD PhD [facility] CPT-86014 Level 4 Est. Patient 19:08:42 [employer] DIVISION MANAGER Hope cohn MD PhD [facility] CPT-62419 Level 4 Est. Patient 20:04:51 CDT Hope cohn MD PhD [facility] CPT-02102 Level 3 New Patient 01:46:11 [employer] MANAGER Hope landers MD PhD [facility] Procedures Code Procedure Name Date Entry Date Standard Desc ription CPT-G0438 Initial Annual Wellness Exam 14:19:57 CD T CPT-G0009 Administration of Pneumococcal Vaccine 9 11:36:25 CDT CPT-43283 Prevnar 13 Intramuscular Suspension 1 1:36:25 CDT CPT-93991 Prevnar 13 Intramuscular Suspension 1 0:40:58 CDT CPT-J0897 Prolia 60 mg 10:37:16 CDT CPT-23430 Abx/Therapy Injection 10:37:16 CDT CPT-J0897 Prolia 60 mg 16:09:34 [employer] MANAGER CPT-J0897 Prolia 60 mg 11:10:35 [employer]ABLE [employer]ISION MANAGER CPT-01767 Abx/Therapy Injection 11:10:35 [employer]EWABLE [employer]ISION MANAGER CPT-000 Give Appropriate Flu Vaccine 17:01:15 [employer]EWABLE [employer]ISION MANAGER 2 CPT-81324 Fluzone High Dose (65+) 15:03:08 [employer]ABLE [employer] MANAGER 02/15 CPT-34651 Immunization Single Admin 15:03:08 [employer] MANAGER 2014 CPT-OV Office Visit 15:58:06 CDT CPT-J0897 Prolia 60 mg 08:45:38 CDT CPT-21974 Abx/Therapy Injection 08:45:38 CDT CPT-J3420 Vitamin B12 1000mcg (Cyanocobalamin) 09:26:20 [employer] MANAGER CPT-27353 Abx/Therapy Injection 09:26:20 [employer]EWABLE [employer]ISION MANAGER CPT-J3420 Vitamin B12 1000mcg (Cyanocobalamin) 09:44:40 [employer]EWABLE [employer]ISION MANAGER CPT-84512 Abx/Therapy Injection 09:44:40 [employer]EWABLE [employer] DIVISION MANAGER CPT-J3420 Vitamin B12 1000mcg (Cyanocobalamin) 09:15:54 [employer]EWABLE [employer] DIVISION MANAGER CPT-26681 Abx/Therapy Injection 09:15:54 R[employer]EWABLE [employer]GY DIVISION MANAGER CPT-J3420 Vitamin B12 1000mcg (Cyanocobalamin) 09:46:44 [employer]EWABLE [employer] DIVISION MANAGER CPT-15889 Abx/Therapy Injection 09:46:44 R[employer]EWABLE [employer] DIVISION MANAGER CPT-J3420 Vitamin B12 1000mcg (Cyanocobalamin) 09:47:34 R[employer]EWABLE [employer] DIVISION MANAGER CPT-05487 Abx/Therapy Injection 09:47:34 [employer]EWABLE [employer] DIVISION MANAGER CPT-J3420 Vitamin B12 1000mcg (Cyanocobalamin) 14:35:50 [employer]EWABLE [employer] DIVISION MANAGER CPT-J3420 Vitamin B12 1000mcg (Cyanocobalamin) 09:25:05 [employer]EWABLE [employer]ISION MANAGER CPT-22351 Abx/Therapy Injection 09:25:05 [employer]EWABLE [employer]ISION MANAGER CPT-G0008 Administration of Influenza Virus Vaccine 13:36:47 CDT CPT-51553 Fluzone High-Dose Intramuscular Suspension 11/15 13:36:47 CDT CPT-J0897 Prolia 60 mg 08:50:41 CDT CPT-19308 Abx/Therapy Injection 08:50:41 CDT CPT-25411 Bone Density 12:06:12 CDT CPT-13834 Bone Density 08:54:40 CDT CPT-OV Office Visit 15:37:02 CDT CPT-24910 Postop F/U Visit 15:47:49 CDT CPT-10191 Postop F/U Visit 15:21:02 CDT CPT-TCMH Transitional Care Mgmt-High 07:52:27 CDT 20 20/06/01 CPT-68375 Venipuncture Draw Fee 13:51:18 CDT CPT-84290 Venipuncture Draw Fee 10:14:55 [employer]NAGER CPT-30959 Venipuncture Draw Fee 13:39:45 [employer]ABLE [employer]ISION MANAGER CPT-OV Office Visit 15:11:22 [employer]ABLE [employer]ISION MANAGER CPT-58857 Venipuncture Draw Fee 09:20:49 [employer]ISION MANAGER CPT-10611 Venipuncture Draw Fee 16:52:15 R[employer]ABLE [employer] DIVISION MANAGER CPT-81710 Venipuncture Draw Fee 10:37:24 [employer]ABLE [employer]ISION MANAGER CPT-05839 Venipuncture Draw Fee 08:21:21 R[employer]EWABLE [employer] DIVISION MANAGER CPT-52687 Venipuncture Draw Fee 08:30:20 R[employer]EWABLE [employer] DIVISION MANAGER CPT-96782 Venipuncture Draw Fee 14:53:21 R[employer]EWABLE [employer] DIVISION MANAGER CPT-64266 Venipuncture Draw Fee 09:40:56 [employer] DIVISION MANAGER CPT-55138 Venipuncture Draw Fee 10:30:47 [employer]ABLE [employer] DIVISION MANAGER CPT-39043 Venipuncture Draw Fee 10:46:17 R[employer]ABLE [employer] DIVISION MANAGER CPT-66100 Venipuncture Draw Fee 11:12:45 R[employer]EWABLE [employer] DIVISION MANAGER CPT-02019 Venipuncture Draw Fee 09:53:33 R[employer]EWABLE [employer] DIVISION MANAGER CPT-53905 Venipuncture Draw Fee 11:53:51 R[employer]ABLE [employer] DIVISION MANAGER CPT-43474 Venipuncture Draw Fee 10:33:50 [employer]ISION MANAGER CPT-46679 Venipuncture Draw Fee 10:05:01 [employer]ISION MANAGER CPT-92260 Venipuncture Draw Fee 14:32:52 R[employer]ISION MANAGER CPT-42665 Venipuncture Draw Fee 09:46:13 [employer]ISION MANAGER CPT-25448 Venipuncture Draw Fee 11:34:27 [employer]ISION MANAGER CPT-93399 Venipuncture Draw Fee 13:17:16 [employer] MANAGER CPT-50717 Venipuncture Draw Fee 12:05:39 CDT CPT-50057 Venipuncture Draw Fee 12:49:12 CDT CPT-81575 Venipuncture Draw Fee 12:37:18 CDT CPT-98580 Venipuncture Draw Fee 10:57:11 CDT CPT-01034 Venipuncture Draw Fee 13:47:40 CDT CPT-18472 Venipuncture Draw Fee 10:02:17 CDT CPT-74713 TB Tubersol 17:32:32 CDT CPT-OV Office Visit 16:21:53 CDT CPT-OV Office Visit 15:49:22 CDT CPT-OV Office Visit 17:16:31 CDT CPT-OV Office Visit 10:43:31 CDT
--- OUTSIDE RECORDS SUMMARY | 2019-02-09 12:27 | XMS REPORT | Clinical Summary ---
Author Author Admin, Florecita Munoz Organization [facility] [employer] Address Unknown Phone Unavailable Allergies, Adverse [...] Sebaceous cyst, scalp 706.2 Resolved Kylie Holt [employer] Sebaceous cyst Cervical lymphadenopathy, anterior, left 785.6 Resolv ed Kylie Holt [employer] Enlargement of lymph nodes Need for prophylactic vaccination and inoculation against in fluenza V04.81 Resolved Adam Yates MD Need for prophylactic vaccination and inoculation against influenza Preventive health care V70.0 Active Kylie Holt [employer] Routine general medical examination at a health care facility Thyroid nodule, left 241.0 Active Kylie Holt A PRN Nontoxic uninodular goiter Screening mammogram V76.12 Active Kylie Holt AP RN Other screening mammogram Mandy 706.2 Active Adam Yates MD Sebaceous cyst ABDOMINAL PAIN, RIGHT LOWER QUADRANT ICD-789.03 Inactive Kina Joshua [employer] ADENOCARCINOMA, COLON, 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 Dick Yates MD ABDOMINAL PAIN, GENERALIZED ICD-789.07 Inactive Hope Benavidez MD PhD FEVER UNSPECIFIED ICD-780.60 Inactive Hope cohn MD PhD UNSPECIFIED VENOUS INSUFFICIENCY ICD-459.81 Elda ctive Adam Yates MD ADENOCARCINOMA, 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 Inac tive Hope Benavidez MD PhD Hyperkalemia ICD-276.7 Inactive Hope Benavidez MD PhD GERD ICD-530.81 Inactive Kylie Holt [employer] 2015 Health maintenance exam ICD-V70.0 Bam Yates MD Anemia ICD-285.9 Inactive Kylie Holt [employer] 07/24 Weakness ICD-780.79 Inactive Hope Benavidez MD [...] Sebaceous cyst, scalp ICD-706.2 Inactive Tracy Holt [employer] Cervical lymphadenopathy, anterior, left ICD-785.6 Inactive Kylie Holt [employer] Need for prophylactic vaccination and inoculation against in fluenza ICD-V04.81 Bam Yates MD Medication List Medication Instructions Start Date Stop Date Generic Name NDC Status Provider Patient Instruction VITAMIN D3 2000 UNIT ORAL CAPS Melaleuca-One daily CHOLECALCIFEROL [id number] Active Kylie Yokum [employer] Active PROBIOTIC DAILY ORAL CAPS Take one daily PROBIOTIC PRODUCT 11950724353 Active Kylie Holt APRN Active IRON 325 (65 FE) MG TABS 1 every other day FERR OUS SULFATE 46534254075 No Longer Active Kylie Holt APRN Active FLORANEX PACK 1 pack three times daily, for bowel health LACTOBACILLUS 80507787131 No Longer Active Kylie Holt APRN Active LOMOTIL 2.5-0.025 MG TABS 1 tab by mouth prn 4 DIPHENOXYLATE-ATROPINE 48047923505 No Longer Active Kylie Holt APRN Active MAGNESIUM GLUCONATE 250 MG TABS 1 tab tid 4 MAGNESIUM GLUCONATE 26870542560 No Longer Active Kylie Holt APRN Active CYANOCOBALAMIN 1000 MCG/ML INJ SOLN 1 injection every 2 weeks 20 20/01/03 CYANOCOBALAMIN 38901470075 No Longer Active Kylie Holt APRN Active ATENOLOL 25 MG ORAL TABS 1/2 pill by mouth daily, for headac hes, blood pressure ATENOLOL 57014669269 Active Kylie Holt APRN Active PROPRANOLOL HCL 80 MG TABS 1 tab tue. and thur. 04/10 PROPRANOLOL HCL 04165495040 No Longer Active Hope Benavidez MD PhD A ctive VITAMIN D3 4000 IU 1 tab 3 times daily VITAMIN D3 4000 IU No Longer Active Hope Benavidez MD PhD Active BACTRIM DS 800-160 MG TABS 1 pill by mouth twice daily, for UTI SULFAMETHOXAZOLE-TRIMETHOPRIM 28990388379 No Longer Active Lisa Benavidez MD PhD Active PROLIA 60 MG/ML SOLN 1 shot every 6 months for osteoprosis DENOSUMAB 92931456428 Active Hope Benavidez MD PhD Active CALCIUM + D + K 750-500-40 MG-UNT-MCG TABS 1 tab by mouth tw ice daily CALCIUM-VITAMIN D-VITAMIN K 06554774995 Active Hope landers MD PhD Active DAILY VALUE MULTIVITAMIN TABS 1 tab by mouth twice daily MULTIPLE VITAMIN 80571940513 Active Hope Benavidez MD PhD Active FISH OIL 306 MG CAPS 1 tab by mouth three times daily OMEGA-3 FATTY ACIDS 68664820033 Active Hope Benavidez MD PhD Active LUTEIN 10 MG TABS 1 tab daily LUTEIN 26470758643 Act cash Hope Benavidez MD PhD Active TRIAMTERENE-HCTZ 37.5-25 MG TABS 1 tab by mouth daily TRIAMTERENE-HCTZ 43427071928 Active Kylie Holt [employer] Active CYCLOBENZAPRINE HCL 10 MG TABS 1 tablet by mouth three times daily as needed for headaches CYCLOBENZAPRINE HCL 60043613596 No Longe r Active Adam Yates MD Active OMEPRAZOLE 20 MG CPDR 1 tablet by mouth daily for GERD OMEPRAZOLE 50298301687 No Longer Active Adam Yates MD A ctive ZOFRAN 8 MG TABS 1 tab by mouth every 12 hours prn 201 05/16/09 ONDANSETRON HCL 92733037427 No Longer Active Adam Yates MD Active PHENADOZ 25 MG SUPP 1 every 4 hrs. PRN PROMETHA ZINE HCL 78079112877 No Longer Active Adam Yates MD Active POTASSIUM CHLORIDE 20 MEQ PACK by mouth twice a day prn POTASSIUM CHLORIDE 85654062352 No Longer Active Adam Yates MD Active PROMETHAZINE HCL 25 MG TABS 1 Q. 4 hr. PRN PROM ETHAZINE HCL 38303120133 No Longer Active Adam Yates MD Active INNOPRAN XL 120 MG [id number] Take one by mouth daily 2 PROPRANOLOL HCL SR BEADS 52983227703 No Longer Active Adam Yates MD A ctive FLAGYL 500 MG TABS 1 pill by mouth three times daily, for diarrh ea METRONIDAZOLE 49689586779 No Longer Active Hope Benavidez MD PhD Active DYAZIDE 37.5-25 MG CAPS 1 qd TRIAMTERENE-HC TZ 67771601442 No Longer Active Hope Benavidez MD PhD Active PROZAC 20 MG CAPS 1 q d FLUOXETINE HCL 08202 173923 No Longer Active Hope Benavidez MD PhD Active SIMVASTATIN 40 MG TABS 1 qd SIMVASTATIN 004 16489491 No Longer Active Adam Yates MD Active MELOXICAM 15 MG TABS 1 qd MELOXICAM 7138238 9547 No Longer Active Adam Yates MD Active IMODIUM A-D 2 MG TABS 2 onset at diarrhea and prn. LOPERAMIDE HCL 27378450410 Active Hope Benavidez MD PhD Active EXCEDRIN EXTRA STRENGTH 250-250-65 MG TABS 1-2 q6h PRN headache 201 04/16/21 [id number] 54325756623 Active Hope Benavidez MD PhD Active FLAGYL 500 MG TABS 1 qid METRONIDAZOLE 28051 360971 No Longer Active Adam Yates MD Active LEVAQUIN 750 MG TABS 1 qd LEVOFLOXACIN 5486 6196427 No Longer Active Adam Yates MD Active ADULT ASPIRIN LOW STRENGTH 81 MG TBDP 1 qd A SPIRIN 19321056768 Active Hope Benavidez MD PhD Active LEVAQUIN 750 MG TABS 1 qd LEVAQUIN 750 MG T ABS 396140 LEVOFLOXACIN Inactive FLAGYL 500 MG TABS 1 qid FLAGYL 500 MG TABS 763859 METRONIDAZOLE Inactive MELOXICAM 15 MG TABS 1 qd MELOXICAM 15 MG T ABS 839612 MELOXICAM Inactive SIMVASTATIN 40 MG TABS 1 qd SIMVASTATIN 40 MG TABS 501424 SIMVASTATIN Inactive PROZAC 20 MG CAPS 1 q d PROZAC 20 MG CAPS 31 0385 FLUOXETINE HCL Inactive DYAZIDE 37.5-25 MG CAPS 1 qd DYAZIDE 37.5 -25 MG CAPS 970280 TRIAMTERENE-HCTZ Inactive INNOPRAN XL 120 MG [id number] Take one by mouth daily 2 INNOPRAN XL 120 MG [id number] PROPRANOLOL HCL SR BEADS Inactive PROMETHAZINE HCL 25 MG TABS 1 Q. 4 hr. PRN PROMETHAZINE HCL 25 MG TABS 549236 PROMETHAZINE HCL Inactive POTASSIUM CHLORIDE 20 MEQ PACK by mouth twice a day prn POTASSIUM CHLORIDE 20 MEQ PACK 959500 POTASSIUM CHLORIDE Inactive PHENADOZ 25 MG SUPP 1 every 4 hrs. PRN PHENADOZ 2 5 MG SUPP 156901 PROMETHAZINE HCL Inactive ZOFRAN 8 MG TABS 1 tab by mouth every 12 hours prn 201 05/16/09 ZOFRAN 8 MG TABS 258814 ONDANSETRON HCL Inactive OMEPRAZOLE 20 MG CPDR 1 tablet by mouth daily for GERD OMEPRAZOLE 20 MG CPDR 568223 OMEPRAZOLE Inactive CYCLOBENZAPRINE HCL 10 MG TABS 1 tablet by mouth three times daily as needed for headaches CYCLOBENZAPRINE HCL 10 MG TABS 614081 CYCLOBENZAPRINE HCL Inactive VITAMIN D3 4000 IU 1 tab 3 times daily VITAMIN D3 4000 IU Inactive PROPRANOLOL HCL 80 MG TABS 1 tab tue. and thur. 04/10 PROPRANOLOL HCL 80 MG TABS 227630 PROPRANOLOL HCL Inactive CYANOCOBALAMIN 1000 MCG/ML INJ SOLN 1 injection every 2 weeks 20 20/01/03 CYANOCOBALAMIN 1000 MCG/ML INJ SOLN 305921 CYANOCOBALAM IN Inactive MAGNESIUM GLUCONATE 250 MG TABS 1 tab tid 4 MAGNESIUM GLUCONATE 250 MG TABS 011309 MAGNESIUM GLUCONATE Inactive LOMOTIL 2.5-0.025 MG TABS 1 tab by mouth prn 4 LOMOTIL 2.5- 0.025 MG TABS 2999534 DIPHENOXYLATE-ATROPINE Inactive FLORANEX PACK 1 pack three times daily, for bowel health FLORANEX PACK LACTOBACILLUS Inactive IRON 325 (65 FE) MG TABS 1 every other day IRON 325 (65 FE) MG TABS 762953 FERROUS SULFATE Inactive FLAGYL 500 MG TABS 1 pill by mouth three times daily, for diarrh ea FLAGYL 500 MG TABS 724723 METRONIDAZOLE Inactive BACTRIM DS 800-160 MG TABS 1 pill by mouth twice daily, for UTI BACTRIM DS 800-160 MG TABS 261430 SULFAMETHOXAZOLE-TRIM ETHOPRIM Inactive Advance Directives Directive Description [...] Panel - Chemistry sodium, serum 142 mmol/L 556-046 8796/04/20 carbon dioxide, venous blood 34.7 mmol/L 21.0-32 [...] ... - Chemistry sodium, serum 139 mmol/L 683-512 7064/10/20 carbon dioxide, venous blood 32.2 mmol/L 21.0-32 [...] - Chemi stry cholesterol, serum 200 mg/dL 148-308 1824/11/22 triglyceride, serum, fasting 129 mg/dL 30-200 HDL cholesterol, serum 56 mg/dL 32-96 LDL cholesterol, serum 118 mg/dL 0-130 calcium, serum 9.0 mg/dL 8.5-10.1 Encounters Code Encounter Date Provider Facility CPT-90437 Level 3 New Patient 16:22:01 [employer] Adam Yates MD [facility] CPT-93172 Level 4 Est. Patient 17:00:48 CDT Kylie Lund [facility] CPT-28059 Level 3 Est. Patient 13:15:54 CDT Kylie Lund [facility] CPT-14603 Level 3 Est. Patient 09:10:11 CDT Kylie Lund [facility] CPT-18606 Level 4 Est. Patient 12:08:30 [employer] CHAIR Hope cohn MD PhD [facility] CPT-21176 Level 4 Est. Patient 19:08:42 [employer] CHAIR Hope cohn MD PhD [facility] CPT-69666 Level 4 Est. Patient 20:04:51 CDT Hope cohn MD PhD [facility] CPT-82149 Level 3 New Patient 01:46:11 [employer] CHAIR Hope landers MD PhD [facility] Procedures Code Procedure Name Date Entry Date Standard Desc ription CPT-38565 Lipid - LAB USE ONLY 10:01:52 [employer] CHAIR 2 CPT-37643 Calcium - LAB USE ONLY 10:01:51 [employer] CHAIR CPT-58214 Venipuncture Draw Fee 10:01:51 [employer] CHAIR CPT-LR Lesion Removal 16:22:01 [employer] CHAIR CPT-37893 TSH - LAB USE ONLY 14:26:02 CDT CPT-57589 CMP - LAB USE ONLY 14:26:01 CDT CPT-66929 CBC with Diff - LAB USE ONLY 14:26:01 CDT 2 CPT-48026 Venipuncture Draw Fee 14:26:01 CDT CPT-07113 First Vx - Ix admin for Medicare patients 13:27:08 CDT CPT-81711 Fluzone High-Dose Intramuscular Suspension 11/26 13:27:08 CDT CPT-G0438 Initial Annual Wellness Exam 14:19:57 CD T CPT-G0009 Administration of Pneumococcal Vaccine 9 11:36:25 CDT CPT-89680 Prevnar 13 Intramuscular Suspension 1 1:36:25 CDT CPT-20828 Prevnar 13 Intramuscular Suspension 1 0:40:58 CDT CPT-J0897 Prolia 60 mg 10:37:16 CDT CPT-49157 Abx/Therapy Injection 10:37:16 CDT CPT-J0897 Prolia 60 mg 16:09:34 [employer] CPT-J0897 Prolia 60 mg 11:10:35 [employer] CHAIR CPT-96225 Abx/Therapy Injection 11:10:35 [employer] CHAIR CPT-000 Give Appropriate Flu Vaccine 17:01:15 [employer] CHAIR 2 CPT-91317 Fluzone High Dose (65+) 15:03:08 [employer] CHAIR 02/15 CPT-45446 Immunization Single Admin 15:03:08 [employer]AIR 2014 CPT-OV Office Visit 15:58:06 CDT CPT-J0897 Prolia 60 mg 08:45:38 CDT CPT-41633 Abx/Therapy Injection 08:45:38 CDT CPT-J3420 Vitamin B12 1000mcg (Cyanocobalamin) 09:26:20 [employer] CPT-22257 Abx/Therapy Injection 09:26:20 [employer] CHAIR CPT-J3420 Vitamin B12 1000mcg (Cyanocobalamin) 09:44:40 [employer] CHAIR CPT-27437 Abx/Therapy Injection 09:44:40 [employer] CHAIR CPT-J3420 Vitamin B12 1000mcg (Cyanocobalamin) 09:15:54 [employer] CHAIR CPT-20078 Abx/Therapy Injection 09:15:54 [employer] CHAIR CPT-J3420 Vitamin B12 1000mcg (Cyanocobalamin) 09:46:44 [employer] CHAIR CPT-16702 Abx/Therapy Injection 09:46:44 [employer] CHAIR CPT-J3420 Vitamin B12 1000mcg (Cyanocobalamin) 09:47:34 [employer] CHAIR CPT-31523 Abx/Therapy Injection 09:47:34 [employer] CHAIR CPT-J3420 Vitamin B12 1000mcg (Cyanocobalamin) 14:35:50 [employer] CHAIR CPT-J3420 Vitamin B12 1000mcg (Cyanocobalamin) 09:25:05 [employer] CHAIR CPT-05915 Abx/Therapy Injection 09:25:05 [employer] CHAIR CPT-G0008 Administration of Influenza Virus Vaccine 13:36:47 CDT CPT-62713 Fluzone High-Dose Intramuscular Suspension 11/15 13:36:47 CDT CPT-J0897 Prolia 60 mg 08:50:41 CDT CPT-06221 Abx/Therapy Injection 08:50:41 CDT CPT-12428 Bone Density 12:06:12 CDT CPT-06198 Bone Density 08:54:40 CDT CPT-OV Office Visit 15:37:02 CDT CPT-05818 Postop F/U Visit 15:47:49 CDT CPT-97024 Postop F/U Visit 15:21:02 CDT CPT-[facility] Transitional Care Mgmt-High 07:52:27 CDT 20 20/06/01 CPT-50447 Venipuncture Draw Fee 13:51:18 CDT CPT-54852 Venipuncture Draw Fee 10:14:55 [employer] CPT-87833 Venipuncture Draw Fee 13:39:45 [employer] CPT-OV Office Visit 15:11:22 [employer] CHAIR CPT-01757 Venipuncture Draw Fee 09:20:49 [employer] CHAIR CPT-26855 Venipuncture Draw Fee 16:52:15 [employer] CHAIR CPT-15703 Venipuncture Draw Fee 10:37:24 [employer] CHAIR CPT-71216 Venipuncture Draw Fee 08:21:21 [employer] CHAIR CPT-85670 Venipuncture Draw Fee 08:30:20 [employer] CHAIR CPT-19659 Venipuncture Draw Fee 14:53:21 [employer] CHAIR CPT-13365 Venipuncture Draw Fee 09:40:56 [employer] CHAIR CPT-48003 Venipuncture Draw Fee 10:30:47 [employer] CHAIR CPT-65004 Venipuncture Draw Fee 10:46:17 [employer] CHAIR CPT-13322 Venipuncture Draw Fee 11:12:45 [employer] CHAIR CPT-43795 Venipuncture Draw Fee 09:53:33 [employer] CHAIR CPT-74504 Venipuncture Draw Fee 11:53:51 [employer] CHAIR CPT-91455 Venipuncture Draw Fee 10:33:50 [employer]AIR CPT-97013 Venipuncture Draw Fee 10:05:01 [employer] CHAIR CPT-69494 Venipuncture Draw Fee 14:32:52 [employer] CHAIR CPT-84925 Venipuncture Draw Fee 09:46:13 [employer] CHAIR CPT-26689 Venipuncture Draw Fee 11:34:27 [employer] CHAIR CPT-81659 Venipuncture Draw Fee 13:17:16 [employer]AIR CPT-03754 Venipuncture Draw Fee 12:05:39 CDT CPT-08583 Venipuncture Draw Fee 12:49:12 CDT CPT-90326 Venipuncture Draw Fee 12:37:18 CDT CPT-64629 Venipuncture Draw Fee 10:57:11 CDT CPT-04482 Venipuncture Draw Fee 13:47:40 CDT CPT-48287 Venipuncture Draw Fee 10:02:17 CDT CPT-48467 TB Tubersol 17:32:32 CDT CPT-OV Office Visit 16:21:53 CDT CPT-OV Office Visit 15:49:22 CDT CPT-OV Office Visit 17:16:31 CDT CPT-OV Office Visit 10:43:31 CDT
--- OUTSIDE RECORDS SUMMARY | 2019-02-09 12:28 | XMS REPORT | Clinical Summary ---
Author Author Admin, Florecita Munoz Organization [facility] [place] Address Unknown Phone Unavailable Allergies, Adverse Reactions, [...] Sebaceous cyst, scalp 706.2 Resolved Kylie Yokum INTAKE COUNSELOR Sebaceous cyst Cervical lymphadenopathy, anterior, left 785.6 Resolv ed Kylie Yokum INTAKE COUNSELOR Enlargement of lymph nodes Need for prophylactic vaccination and inoculation against in fluenza V04.81 Resolved Adam Yates MD Need for prophylactic vaccination and inoculation against influenza Preventive health care V70.0 Active Kylie Yokum INTAKE COUNSELOR Routine general medical examination at a health care facility Thyroid nodule, left 241.0 Active Kylie Yokum A PRN Nontoxic uninodular goiter Screening mammogram V76.12 Active Kylie Yokum AP RN Other screening mammogram Mandy 706.2 Resolved Kylie Yokum INTAKE COUNSELOR Sebaceous cyst Colon cancer, ascending 153.6 Resolved Klyie Yok um INTAKE COUNSELOR Malignant neoplasm of ascending colon Foot pain, left 729.5 Active 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 Pain in limb Splinter 919.6 Active Kylie Yokum INTAKE COUNSELOR Superficial foreign body (splinter) of other, multiple, and unspecified sites, without major open wound and without mention of infection Rash 782.1 Active Kylie Yokum INTAKE COUNSELOR R aurora and other nonspecific skin eruption ABDOMINAL PAIN, RIGHT LOWER QUADRANT ICD-789.03 Inactive Kina Joshua INTAKE COUNSELOR ADENOCARCINOMA, COLON, 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 Dick Yates MD ABDOMINAL PAIN, GENERALIZED ICD-789.07 Inactive Hope Benavidez MD PhD FEVER UNSPECIFIED ICD-780.60 Inactive Hope cohn MD PhD UNSPECIFIED VENOUS INSUFFICIENCY ICD-459.81 Elda ctive Adam Yates MD ADENOCARCINOMA, 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 Inac tive Hope Benavidez MD PhD Hyperkalemia ICD-276.7 Inactive Hope Benavidez MD PhD GERD ICD-530.81 Inactive Kylie Yanet INTAKE COUNSELOR 2015 Health maintenance exam ICD-V70.0 Bam Yates MD Anemia ICD-285.9 Inactive Kylie Yanet INTAKE COUNSELOR 07/24 Hypomagnesemia ICD-275.2 Inactive Kylie Yogabbium INTAKE COUNSELOR Weakness ICD-780.79 Inactive Hope Benavidez MD P [...] Sebaceous cyst, scalp ICD-706.2 Inactive Tracy Lundum INTAKE COUNSELOR Cervical lymphadenopathy, anterior, left ICD-785.6 Inactive Kylie Lundum INTAKE COUNSELOR Need for prophylactic vaccination and inoculation against in fluenza ICD-V04.81 Inactive Adam Yates MD Mnady ICD-706.2 Inactive Kylie Lundum AMY 07/20 Colon cancer, ascending ICD-153.6 Inactive Gabbi Escalonagabbioliver AMY Medication List Medication Instructions Start Date Stop Date Generic Name ND Status Provider Patient Instruction VOLTAREN 1 % TRANSDERMAL GEL apply q 6-8 hour to left arm as needed for pain DICLOFENAC SODIUM 12422227101 Active Kylie Lundum INTAKE COUNSELOR Active COQ10 100 MG ORAL CAPSULE 1 daily COENZYME Q10 243259 95213 Active LETY Nation Active VITAMIN D3 2000 UNIT ORAL CAPSULE Melaleuca-One daily CHOLECALCIFEROL 70599385737 Active Kylie Lundum INTAKE COUNSELOR Active PROBIOTIC DAILY ORAL CAPSULE Take one daily PROBIO TIC PRODUCT 86148186102 Active Kylie Escalonakum INTAKE COUNSELOR Active IRON 325 (65 Fe) MG ORAL TABLET 1 every other day FERROUS SULFATE 86148689643 No Longer Active Kylie Lundum INTAKE COUNSELOR Active FLORANEX ORAL PACKET 1 pack three times daily, for bowel health LACTOBACILLUS 78753711851 No Longer Active Kylie Kevonum INTAKE COUNSELOR Active LOMOTIL 2.5-0.025 MG ORAL TABLET 1 tab by mouth prn 23/10/23 DIPHENOXYLATE-ATROPINE 11197122814 No Longer Active Kylie Yokum INTAKE COUNSELOR Active MAGNESIUM GLUCONATE 250 MG ORAL TABLET 1 tab tid 23/10/23 MAGNESIUM GLUCONATE 32971917375 No Longer Active Kylie Yokum INTAKE COUNSELOR Active CYANOCOBALAMIN 1000 MCG/ML INJECTION SOLUTION 1 injection ev ruben 2 weeks CYANOCOBALAMIN 76530189438 No Longer Active Kylie Lund um INTAKE COUNSELOR Active ATENOLOL 25 MG ORAL TABLET 1/2 pill by mouth daily, fo r headaches, blood pressure ATENOLOL 97456206930 Active Kylie Lundum INTAKE COUNSELOR Active PROPRANOLOL HCL 80 MG ORAL TABLET 1 tab tue. and thur. PROPRANOLOL HCL 47035907079 No Longer Active Hope Benavidez MD PhD A ctive VITAMIN D3 4000 IU 1 tab 3 times daily VITAMIN D3 4000 IU No Longer Active Hope Benavidez MD PhD Active BACTRIM DS 800-160 MG ORAL TABLET 1 pill by mouth twice claudio y, for UTI SULFAMETHOXAZOLE-TRIMETHOPRIM 53230838918 No Longer Active Hope Benavidez MD PhD Active PROLIA 60 MG/ML SUBCUTANEOUS SOLUTION 1 shot every 6 months for osteoprosis DENOSUMAB 07133679975 Active Hope Benavidez MD PhD Active CALCIUM + D + K 750-500-40 MG-UNT-MCG ORAL TABLET 1 tab by [facility] twice daily CALCIUM-VITAMIN D-VITAMIN K 12500033565 Active Hope valdez MD PhD Active DAILY VALUE MULTIVITAMIN ORAL TABLET 1 tab by mouth twice daily 201 05/16/14 MULTIPLE VITAMIN 50336738472 Active Hope Benavidez MD PhD Acti ve FISH OIL 306 MG CAPS 1 tab by mouth three times daily OMEGA-3 FATTY ACIDS 96042626038 Active Hope Benavidez MD PhD Active LUTEIN 10 MG ORAL TABLET 1 tab daily LUTEIN 06215162 408 Active Hope Benavidez MD PhD Active TRIAMTERENE-HCTZ 37.5-25 MG ORAL TABLET 1 tab by mouth daily 10/22 TRIAMTERENE-HCTZ 27585001458 Active LETY Rossi Activ aarti CYCLOBENZAPRINE HCL 10 MG ORAL TABLET 1 tablet by mout h three times daily as needed for headaches CYCLOBENZAPRINE HCL 36645012481 No Longer Active Adam Yates MD Active OMEPRAZOLE 20 MG ORAL CAPSULE DELAYED RELEASE 1 tablet by mo [facility] daily for GERD OMEPRAZOLE 11948421262 No Longer Active Adam Yates MD Active ZOFRAN 8 MG ORAL TABLET 1 tab by mouth every 12 hours prn 4 ONDANSETRON HCL 89032386058 No Longer Active Adam Yates MD Active PHENADOZ 25 MG RECTAL SUPPOSITORY 1 every 4 hrs. PRN 2 PROMETHAZINE HCL 34998716977 No Longer Active Adam Yates MD A ctive POTASSIUM CHLORIDE 20 MEQ ORAL PACKET by mouth twice a day prn 2 POTASSIUM CHLORIDE 98667307670 No Longer Active Adam Carpenter MD Active PROMETHAZINE HCL 25 MG ORAL TABLET 1 Q. 4 hr. PRN PROMETHAZINE HCL 12896884200 No Longer Active Adam Yates MD Active INNOPRAN XL 120 MG ORAL CAPSULE EXTENDED RELEASE 24 HO UR Take one by mouth daily PROPRANOLOL HCL SR BEADS 17484523682 No Longer Active Adam Yates MD Active FLAGYL 500 MG ORAL TABLET 1 pill by mouth three times daily, for diarrhea METRONIDAZOLE 71136528244 No Longer Active Hope landers MD PhD Active DYAZIDE 37.5-25 MG ORAL CAPSULE 1 qd TRIA MTERENE-HCTZ 82725394165 No Longer Active Hope Benavidez MD PhD Active PROZAC 20 MG ORAL CAPSULE 1 q d FLUOXETINE HCL 29077970886 No Longer Active Hope Benavidez MD PhD Active SIMVASTATIN 40 MG ORAL TABLET 1 qd SIMVAS TATIN 24795999435 No Longer Active Adam Yates MD Active MELOXICAM 15 MG ORAL TABLET 1 qd MELOXICAM 52448491808 No Longer Active Adam Yates MD Active IMODIUM A-D 2 MG ORAL TABLET 2 onset at diarrhea and prn. LOPERAMIDE HCL 22578924482 Active Hope Benavidez MD PhD Active EXCEDRIN EXTRA STRENGTH 250-250-65 MG ORAL TABLET 1-2 q6h MT N headache [id number] 67731220812 Active Hope Benavidez MD PhD Active FLAGYL 500 MG ORAL TABLET 1 qid METRONIDAZOL E 80792877452 No Longer Active Adam Yates MD Active LEVAQUIN 750 MG ORAL TABLET 1 qd LEVOFLOXAC IN 79376858870 No Longer Active Adam Yates MD Active ADULT ASPIRIN LOW STRENGTH 81 MG ORAL TABLET DISINTEGRATING 1 qd ASPIRIN 80050038031 Active Hope Benavidez MD PhD Active LEVAQUIN 750 MG ORAL TABLET 1 qd LEVAQUIN 750 MG ORAL TABLET 957946 LEVOFLOXACIN Inactive FLAGYL 500 MG ORAL TABLET 1 qid FLAGYL 500 MG ORAL TABLET 967249 METRONIDAZOLE Inactive MELOXICAM 15 MG ORAL TABLET 1 qd MELOXICAM 15 MG ORAL TABLET 207605 MELOXICAM Inactive SIMVASTATIN 40 MG ORAL TABLET 1 qd SIMVASTATIN 40 MG ORAL TABLET 592416 SIMVASTATIN Inactive PROZAC 20 MG ORAL CAPSULE 1 q d PROZAC 20 MG ORAL CAPSULE 456073 FLUOXETINE HCL Inactive DYAZIDE 37.5-25 MG ORAL CAPSULE 1 qd 5 DYAZIDE 37.5-25 MG ORAL CAPSULE 922132 TRIAMTERENE-HCTZ Inactive INNOPRAN XL 120 MG ORAL CAPSULE EXTENDED RELEASE 24 HO UR Take one by mouth daily INNOPRAN XL 120 MG ORAL CAPSULE EXTENDED RELEASE 24 HOUR PROPRANOLOL HCL SR BEADS Inactive PROMETHAZINE HCL 25 MG ORAL TABLET 1 Q. 4 hr. PRN 2013 PROMETHAZINE HCL 25 MG ORAL TABLET 482282 PROMETHAZINE HCL Inactive POTASSIUM CHLORIDE 20 MEQ ORAL PACKET by mouth twice a day prn 2 POTASSIUM CHLORIDE 20 MEQ ORAL PACKET 5707790 POTASSIUM CHLORIDE Inactive PHENADOZ 25 MG RECTAL SUPPOSITORY 1 every 4 hrs. PRN 2 PHENADOZ 25 MG RECTAL SUPPOSITORY 053872 PROMETHAZINE HCL Inactive ZOFRAN 8 MG ORAL TABLET 1 tab by mouth every 12 hours prn 4 ZOFRAN 8 MG ORAL TABLET 546682 ONDANSETRON HCL Inactive OMEPRAZOLE 20 MG ORAL CAPSULE DELAYED RELEASE 1 tablet by mo uth daily for GERD OMEPRAZOLE 20 MG ORAL CAPSULE DELAYED RELEASE 19 8051 OMEPRAZOLE Inactive CYCLOBENZAPRINE HCL 10 MG ORAL TABLET 1 tablet by mout h three times daily as needed for headaches CYCLOBENZAPRINE HCL 10 MG ORAL TABLET 168998 CYCLOBENZAPRINE HCL Inactive VITAMIN D3 4000 IU 1 tab 3 times daily VITAMIN D3 4000 IU Inactive PROPRANOLOL HCL 80 MG ORAL TABLET 1 tab tue. and thur. PROPRANOLOL HCL 80 MG ORAL TABLET 299881 PROPRANOLOL HCL Inacti ve CYANOCOBALAMIN 1000 MCG/ML INJECTION SOLUTION 1 injection ev ruben 2 weeks CYANOCOBALAMIN 1000 MCG/ML INJECTION SOLUTION 30 9594 CYANOCOBALAMIN Inactive MAGNESIUM GLUCONATE 250 MG ORAL TABLET 1 tab tid 20 23/10/23 MAGNESIUM GLUCONATE 250 MG ORAL TABLET 361875 MAGNESIUM GLUCONATE Inactive LOMOTIL 2.5-0.025 MG ORAL TABLET 1 tab by mouth prn 20 23/10/23 LOMOTIL 2.5-0.025 MG ORAL TABLET 3225548 DIPHENOXYLATE-ATROPINE Inac tive FLORANEX ORAL PACKET 1 pack three times daily, for bowel health FLORANEX ORAL PACKET LACTOBACILLUS Inactive IRON 325 (65 Fe) MG ORAL TABLET 1 every other day 2015 IRON 325 (65 Fe) MG ORAL TABLET 365042 FERROUS SULFATE Inactive FLAGYL 500 MG ORAL TABLET 1 pill by mouth three times daily, for diarrhea FLAGYL 500 MG ORAL TABLET 260182 METRONIDAZOLE I nactive BACTRIM DS 800-160 MG ORAL TABLET 1 pill by mouth twice claudio y, for UTI BACTRIM DS 800-160 MG ORAL TABLET 389898 SULFAMETHOXAZOLE-TRIMETHOPRIM Inactive Advance Directives Directive Description Start [...] ... - Chemistry sodium, serum 138 mmol/L 472-270 0941/12/15 potassium, serum 4.0 mmol/L 3.5-5.2 chloride, serum [...] 11 .0-15.0 platelet count 157 THOUSAND/UL 10*3/mm3 330-294 5922/04/20 mean platelet volume 8.9 fL 7.5-12.5 Lab Report: CEA - Serology carcinoembryonic antigen 0.9 ng/mL Encounters Code Encounter Date Provider Facility CPT-90362 Level 2 Est. Patient 14:27:16 LIP OF SHANK CUTTER Kylie boyd [facility] CPT-72263 Level 3 Est. Patient 17:54:48 CDT Kylie boyd [facility] CPT-53856 Level 3 Est. Patient 16:26:30 CDT Kina blackmon [facility] CPT-88193 Level 3 New Patient 16:22:01 LIP OF SHANK CUTTER Adam Yates MD [facility] CPT-41412 Level 4 Est. Patient 17:00:48 CDT [facility] CPT-27803 Level 3 Est. Patient 13:15:54 CDT Kylie boyd [facility] CPT-69591 Level 3 Est. Patient 09:10:11 CDT Kylie Lund [facility] CPT-20502 Level 4 Est. Patient 12:08:30 LIP OF SHANK CUTTER Hope cohn MD [facility] CPT-36348 Level 4 Est. Patient 19:08:42 LIP OF SHANK CUTTER Hope cohn MD [facility] CPT-71529 Level 4 Est. Patient 20:04:51 CDT Hope cohn MD [facility] CPT-02881 Level 3 New Patient 01:46:11 LIP OF SHANK CUTTER Hope landers MD PhD [facility] Procedures Code Procedure Name Date Entry Date Standard Desc ription CPT-J0897 Prolia 60 mg 15:46:54 LIP OF SHANK CUTTER CPT-04505 Abx/Therapy Injection 15:46:54 LIP OF SHANK CUTTER CPT-45159 Microalbumin - LAB USE ONLY 09:41:32 LIP OF SHANK CUTTER 20 23/01/15 CPT-90337 Free T4 - LAB USE ONLY 09:41:32 LIP OF SHANK CUTTER CPT-10148 TSH - LAB USE ONLY 09:41:32 LIP OF SHANK CUTTER CPT-66286 BMP - LAB USE ONLY 09:41:32 LIP OF SHANK CUTTER CPT-14288 Venipuncture Draw Fee 09:41:32 LIP OF SHANK CUTTER CPT-78433 First Vx - Ix admin for Medicare patients 11:19:30 CDT CPT-69188 Fluzone High-Dose Intramuscular Suspension 12/07 11:19:30 CDT CPT-J0897 Prolia 60 mg 14:55:42 CDT CPT-03015 Abx/Therapy Injection 14:55:42 CDT CPT-00226 Bone Density - XRAY USE ONLY 10:27:12 CDT 2 CPT-G0439 Subsequent Annual Wellness Exam 17:54:53 CDT CPT-84619 Foot, left, comp min 3V - XRAY USE ONLY 12:22:49 CDT CPT-G0009 Administration of Pneumococcal Vaccine 3 12:18:00 CDT CPT-03576 Pneumovax 23 Injection Injectable 25 MCG /0.5ML 12:18:00 CDT CPT-J0897 Prolia 60 mg 14:14:16 LIP OF SHANK CUTTER CPT-64172 Abx/Therapy Injection 14:14:15 LIP OF SHANK CUTTER CPT-35128 Lipid - LAB USE ONLY 10:01:52 LIP OF SHANK CUTTER 2 CPT-06789 Calcium - LAB USE ONLY 10:01:51 LIP OF SHANK CUTTER CPT-12317 Venipuncture Draw Fee 10:01:51 LIP OF SHANK CUTTER 2016/11/ 22 CPT-LR Lesion Removal 16:22:01 LIP OF SHANK CUTTER CPT-31645 TSH - LAB USE ONLY 14:26:02 CDT CPT-20676 CMP - LAB USE ONLY 14:26:01 CDT CPT-91554 CBC with Diff - LAB USE ONLY 14:26:01 CDT 2 CPT-09224 Venipuncture Draw Fee 14:26:01 CDT CPT-01465 First Vx - Ix admin for Medicare patients 13:27:08 CDT CPT-56335 Fluzone High-Dose Intramuscular Suspension 11/26 13:27:08 CDT CPT-G0438 Initial Annual Wellness Exam 14:19:57 CD T CPT-G0009 Administration of Pneumococcal Vaccine 9 11:36:25 CDT CPT-85630 Prevnar 13 Intramuscular Suspension 1 1:36:25 CDT CPT-53453 Prevnar 13 Intramuscular Suspension 1 0:40:58 CDT CPT-J0897 Prolia 60 mg 10:37:16 CDT CPT-10808 Abx/Therapy Injection 10:37:16 CDT CPT-J0897 Prolia 60 mg 16:09:34 LIP OF SHANK CUTTER CPT-J0897 Prolia 60 mg 11:10:35 LIP OF SHANK CUTTER CPT-54926 Abx/Therapy Injection 11:10:35 LIP OF SHANK CUTTER CPT-000 Give Appropriate Flu Vaccine 17:01:15 LIP OF SHANK CUTTER 2 CPT-23979 Fluzone High Dose (65+) 15:03:08 LIP OF SHANK CUTTER 02/15 CPT-60948 Immunization Single Admin 15:03:08 LIP OF SHANK CUTTER 2014 CPT-OV Office Visit 15:58:06 CDT CPT-J0897 Prolia 60 mg 08:45:38 CDT CPT-66085 Abx/Therapy Injection 08:45:38 CDT CPT-J3420 Vitamin B12 1000mcg (Cyanocobalamin) 09:26:20 LIP OF SHANK CUTTER CPT-45234 Abx/Therapy Injection 09:26:20 LIP OF SHANK CUTTER CPT-J3420 Vitamin B12 1000mcg (Cyanocobalamin) 09:44:40 LIP OF SHANK CUTTER CPT-45575 Abx/Therapy Injection 09:44:40 LIP OF SHANK CUTTER CPT-J3420 Vitamin B12 1000mcg (Cyanocobalamin) 09:15:54 LIP OF SHANK CUTTER CPT-26459 Abx/Therapy Injection 09:15:54 LIP OF SHANK CUTTER CPT-J3420 Vitamin B12 1000mcg (Cyanocobalamin) 09:46:44 LIP OF SHANK CUTTER CPT-78949 Abx/Therapy Injection 09:46:44 LIP OF SHANK CUTTER CPT-J3420 Vitamin B12 1000mcg (Cyanocobalamin) 09:47:34 LIP OF SHANK CUTTER CPT-21624 Abx/Therapy Injection 09:47:34 LIP OF SHANK CUTTER CPT-J3420 Vitamin B12 1000mcg (Cyanocobalamin) 14:35:50 LIP OF SHANK CUTTER CPT-J3420 Vitamin B12 1000mcg (Cyanocobalamin) 09:25:05 LIP OF SHANK CUTTER CPT-44669 Abx/Therapy Injection 09:25:05 LIP OF SHANK CUTTER CPT-G0008 Administration of Influenza Virus Vaccine 13:36:47 CDT CPT-43186 Fluzone High-Dose Intramuscular Suspension 11/15 13:36:47 CDT CPT-J0897 Prolia 60 mg 08:50:41 CDT CPT-47544 Abx/Therapy Injection 08:50:41 CDT CPT-79409 Bone Density 12:06:12 CDT CPT-14186 Bone Density 08:54:40 CDT CPT-OV Office Visit 15:37:02 CDT CPT-26676 Postop F/U Visit 15:47:49 CDT CPT-22289 Postop F/U Visit 15:21:02 CDT CPT-TCM Transitional Care Mgmt-High 07:52:27 CDT 20 20/06/01 CPT-38229 Venipuncture Draw Fee 13:51:18 CDT CPT-11205 Venipuncture Draw Fee 10:14:55 LIP OF SHANK CUTTER CPT-99096 Venipuncture Draw Fee 13:39:45 LIP OF SHANK CUTTER CPT-OV Office Visit 15:11:22 LIP OF SHANK CUTTER CPT-67851 Venipuncture Draw Fee 09:20:49 LIP OF SHANK CUTTER CPT-60242 Venipuncture Draw Fee 16:52:15 LIP OF SHANK CUTTER CPT-66424 Venipuncture Draw Fee 10:37:24 LIP OF SHANK CUTTER CPT-82819 Venipuncture Draw Fee 08:21:21 LIP OF SHANK CUTTER CPT-49685 Venipuncture Draw Fee 08:30:20 LIP OF SHANK CUTTER CPT-09592 Venipuncture Draw Fee 14:53:21 LIP OF SHANK CUTTER CPT-72893 Venipuncture Draw Fee 09:40:56 LIP OF SHANK CUTTER CPT-40307 Venipuncture Draw Fee 10:30:47 LIP OF SHANK CUTTER CPT-68906 Venipuncture Draw Fee 10:46:17 LIP OF SHANK CUTTER CPT-96570 Venipuncture Draw Fee 11:12:45 LIP OF SHANK CUTTER CPT-36068 Venipuncture Draw Fee 09:53:33 LIP OF SHANK CUTTER CPT-38811 Venipuncture Draw Fee 11:53:51 LIP OF SHANK CUTTER CPT-11201 Venipuncture Draw Fee 10:33:50 LIP OF SHANK CUTTER CPT-14033 Venipuncture Draw Fee 10:05:01 LIP OF SHANK CUTTER CPT-45815 Venipuncture Draw Fee 14:32:52 LIP OF SHANK CUTTER CPT-21327 Venipuncture Draw Fee 09:46:13 LIP OF SHANK CUTTER CPT-59024 Venipuncture Draw Fee 11:34:27 LIP OF SHANK CUTTER CPT-61952 Venipuncture Draw Fee 13:17:16 LIP OF SHANK CUTTER CPT-26912 Venipuncture Draw Fee 12:05:39 CDT CPT-98120 Venipuncture Draw Fee 12:49:12 CDT CPT-56538 Venipuncture Draw Fee 12:37:18 CDT CPT-71164 Venipuncture Draw Fee 10:57:11 CDT CPT-45483 Venipuncture Draw Fee 13:47:40 CDT CPT-46474 Venipuncture Draw Fee 10:02:17 CDT CPT-78584 TB Tubersol 17:32:32 CDT CPT-OV Office Visit 16:21:53 CDT CPT-OV Office Visit 15:49:22 CDT CPT-OV Office Visit 17:16:31 CDT CPT-OV Office Visit 10:43:31 CDT
--- OUTSIDE RECORDS SUMMARY | 2019-02-09 12:28 | XMS REPORT | Clinical Summary ---
Author Author Renaldo, Florecita Munoz Organization [facility] [employer] Address Unknown Phone Unavailable Allergies, Adverse Reactions, [...] PhD Hyperpotassemia GERD 530.81 Resolved Kylie Yokum ORGANIZATIONAL DEVELOPMENT MANAGER Esophageal reflux Health maintenance exam V70.0 Resolved Adolfo Yates MD Routine general medical examination at a health care facility Anemia 285.9 Resolved Kylie Holt ORGANIZATIONAL DEVELOPMENT MANAGER Anemia, unspecified Personal history of malignant neoplasm of large intestine V10.05 Active Adam Yates MD Personal history of malignant neoplasm of large intestine Hypomagnesemia 275.2 Resolved Kylie Holt ORGANIZATIONAL DEVELOPMENT MANAGER Disorders of magnesium metabolism Weakness 780.79 [...] Sebaceous cyst, scalp 706.2 Resolved Kylie Yokum ORGANIZATIONAL DEVELOPMENT MANAGER Sebaceous cyst Cervical lymphadenopathy, anterior, left 785.6 Resolv ed Kylie Yokum ORGANIZATIONAL DEVELOPMENT MANAGER Enlargement of lymph nodes Need for prophylactic vaccination and inoculation against in fluenza V04.81 Resolved Adam Yates MD Need for prophylactic vaccination and inoculation against influenza Preventive health care V70.0 Active Kylie Yokum ORGANIZATIONAL DEVELOPMENT MANAGER Routine general medical examination at a health care facility Thyroid nodule, left 241.0 Active Kylie Yokum A PRN Nontoxic uninodular goiter Screening mammogram V76.12 Active Kylie Yokum AP RN Other screening mammogram Mandy 706.2 Resolved Kylie Yokum ORGANIZATIONAL DEVELOPMENT MANAGER Sebaceous cyst Colon cancer, ascending 153.6 Resolved Kylie Yok um ORGANIZATIONAL DEVELOPMENT MANAGER Malignant neoplasm of ascending colon Foot pain, left 729.5 Active 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 Pain in limb Splinter 919.6 Active Kylie Yokum ORGANIZATIONAL DEVELOPMENT MANAGER Superficial foreign body (splinter) of other, multiple, and unspecified sites, without major open wound and without mention of infection ABDOMINAL PAIN, RIGHT LOWER QUADRANT ICD-789.03 Inactive Kina Joshua ORGANIZATIONAL DEVELOPMENT MANAGER ADENOCARCINOMA, COLON, 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 Dick Yates MD ABDOMINAL PAIN, GENERALIZED ICD-789.07 Inactive Hope Benavidez MD PhD FEVER UNSPECIFIED ICD-780.60 Inactive Hope cohn MD PhD UNSPECIFIED VENOUS INSUFFICIENCY ICD-459.81 Elda ctive Adam Yates MD ADENOCARCINOMA, 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 Inac tive Hope Benavidez MD PhD Hyperkalemia ICD-276.7 Inactive Hope Benavidez MD PhD GERD ICD-530.81 Inactive Kylie Holt ORGANIZATIONAL DEVELOPMENT MANAGER 2015 Health maintenance exam ICD-V70.0 Inactive Adolfo Yates MD Anemia ICD-285.9 Inactive Kylie Holt ORGANIZATIONAL DEVELOPMENT MANAGER 07/24 Hypomagnesemia ICD-275.2 Inactive Kylie Holt ORGANIZATIONAL DEVELOPMENT MANAGER Weakness ICD-780.79 Inactive Hope Benavidez MD [...] Sebaceous cyst, scalp ICD-706.2 Inactive Tracy Holt ORGANIZATIONAL DEVELOPMENT MANAGER Cervical lymphadenopathy, anterior, left ICD-785.6 Inactive Kylie Holt ORGANIZATIONAL DEVELOPMENT MANAGER Need for prophylactic vaccination and inoculation against in fluenza ICD-V04.81 Inactive Adam Yates MD Mandy ICD-706.2 Inactive Kylie Holt ORGANIZATIONAL DEVELOPMENT MANAGER 07/20 Colon cancer, ascending ICD-153.6 Inactive Bravo Holt ORGANIZATIONAL DEVELOPMENT MANAGER Medication List Medication Instructions Start Date Stop Date Generic Name NDC Status Provider Patient Instruction COQ10 100 MG ORAL CAPS 1 daily COENZYME Q10 130257120 20 Active LETY Nation Active VITAMIN D3 2000 UNIT ORAL CAPS Melaleuca-One daily CHOLECALCIFEROL 88330654059 Active Kylie Holt APRN Active PROBIOTIC DAILY ORAL CAPS Take one daily PROBIOTIC PRODUCT 57208707127 Active Kylie Holt APRN Active IRON 325 (65 FE) MG TABS 1 every other day FERR OUS SULFATE 38730709755 No Longer Active Kylie Holt APRN Active FLORANEX PACK 1 pack three times daily, for bowel health LACTOBACILLUS 85361854081 No Longer Active Kylie Holt APRN Active LOMOTIL 2.5-0.025 MG TABS 1 tab by mouth prn 4 DIPHENOXYLATE-ATROPINE 84403384731 No Longer Active Kylie Holt APRN Active MAGNESIUM GLUCONATE 250 MG TABS 1 tab tid 4 MAGNESIUM GLUCONATE 64366792259 No Longer Active Kylie Lundum ORGANIZATIONAL DEVELOPMENT MANAGER Active CYANOCOBALAMIN 1000 MCG/ML INJ SOLN 1 injection every 2 weeks 20 20/01/03 CYANOCOBALAMIN 35428776794 No Longer Active Kylie Holt APRN Active ATENOLOL 25 MG ORAL TABS 1/2 pill by mouth daily, for headac hes, blood pressure ATENOLOL 20012447674 Active Kylieshubham Holt ORGANIZATIONAL DEVELOPMENT MANAGER Active PROPRANOLOL HCL 80 MG TABS 1 tab tue. and thur. 04/10 PROPRANOLOL HCL 52042665388 No Longer Active Hope Benavidez MD PhD A ctive VITAMIN D3 4000 IU 1 tab 3 times daily VITAMIN D3 4000 IU No Longer Active Hope Benavidez MD PhD Active BACTRIM DS 800-160 MG TABS 1 pill by mouth twice daily, for UTI SULFAMETHOXAZOLE-TRIMETHOPRIM 00265536500 No Longer Active A attila Benavidez MD PhD Active PROLIA 60 MG/ML SOLN 1 shot every 6 months for osteoprosis DENOSUMAB 42072494481 Active Hope Benavidez MD PhD Active CALCIUM + D + K 750-500-40 MG-UNT-MCG TABS 1 tab by mouth tw ice daily CALCIUM-VITAMIN D-VITAMIN K 99862280245 Active Hope landers MD PhD Active DAILY VALUE MULTIVITAMIN TABS 1 tab by mouth twice daily MULTIPLE VITAMIN 00586915173 Active Hope Benavidez MD PhD Active FISH OIL 306 MG CAPS 1 tab by mouth three times daily OMEGA-3 FATTY ACIDS 28994461933 Active Hope Benavidez MD PhD Active LUTEIN 10 MG TABS 1 tab daily LUTEIN 99038018094 Act cash Hope Benavidez MD PhD Active TRIAMTERENE-HCTZ 37.5-25 MG TABS 1 tab by mouth daily TRIAMTERENE-HCTZ 46762196151 Active Kylie Holt APRN Active CYCLOBENZAPRINE HCL 10 MG TABS 1 tablet by mouth three times daily as needed for headaches CYCLOBENZAPRINE HCL 61942819748 No Longe r Active Adam Yates MD Active OMEPRAZOLE 20 MG CPDR 1 tablet by mouth daily for GERD OMEPRAZOLE 28290566504 No Longer Active Adam Yates MD A ctive ZOFRAN 8 MG TABS 1 tab by mouth every 12 hours prn 201 05/16/09 ONDANSETRON HCL 25817206530 No Longer Active Adam Yates MD Active PHENADOZ 25 MG SUPP 1 every 4 hrs. PRN PROMETHA ZINE HCL 19812283893 No Longer Active Adam Yates MD Active POTASSIUM CHLORIDE 20 MEQ PACK by mouth twice a day prn POTASSIUM CHLORIDE 00969869542 No Longer Active Adam Yates MD Active PROMETHAZINE HCL 25 MG TABS 1 Q. 4 hr. PRN PROM ETHAZINE HCL 68954594249 No Longer Active Adam Yates MD Active INNOPRAN XL 120 MG [id number] Take one by mouth daily 2 PROPRANOLOL HCL SR BEADS 15313885575 No Longer Active Adam Yates MD A ctive FLAGYL 500 MG TABS 1 pill by mouth three times daily, for diarrh ea METRONIDAZOLE 56269966159 No Longer Active Hope Benavidez MD PhD Active DYAZIDE 37.5-25 MG CAPS 1 qd TRIAMTERENE-HC TZ 86661648282 No Longer Active Hope Benavidez MD PhD Active PROZAC 20 MG CAPS 1 q d FLUOXETINE HCL 16662 981929 No Longer Active Hope Benavidez MD PhD Active SIMVASTATIN 40 MG TABS 1 qd SIMVASTATIN 004 16204859 No Longer Active Adam Yates MD Active MELOXICAM 15 MG TABS 1 qd MELOXICAM 5833828 5550 No Longer Active Adam Yates MD Active IMODIUM A-D 2 MG TABS 2 onset at diarrhea and prn. LOPERAMIDE HCL 13612947398 Active Hope Benavidez MD PhD Active EXCEDRIN EXTRA STRENGTH 250-250-65 MG TABS 1-2 q6h PRN headache 201 04/16/21 [id number] 03995102112 Active Hope Benavidez MD PhD Active FLAGYL 500 MG TABS 1 qid METRONIDAZOLE 04459 323940 No Longer Active Adam Yates MD Active LEVAQUIN 750 MG TABS 1 qd LEVOFLOXACIN 5486 2158175 No Longer Active Adam Yates MD Active ADULT ASPIRIN LOW STRENGTH 81 MG TBDP 1 qd A SPIRIN 37713884097 Active Hope Benavidez MD PhD Active LEVAQUIN 750 MG TABS 1 qd LEVAQUIN 750 MG T ABS 439271 LEVOFLOXACIN Inactive FLAGYL 500 MG TABS 1 qid FLAGYL 500 MG TABS 936292 METRONIDAZOLE Inactive MELOXICAM 15 MG TABS 1 qd MELOXICAM 15 MG T ABS 643515 MELOXICAM Inactive SIMVASTATIN 40 MG TABS 1 qd SIMVASTATIN 40 MG TABS 315060 SIMVASTATIN Inactive PROZAC 20 MG CAPS 1 q d PROZAC 20 MG CAPS 31 0385 FLUOXETINE HCL Inactive DYAZIDE 37.5-25 MG CAPS 1 qd DYAZIDE 37.5 -25 MG CAPS 522732 TRIAMTERENE-HCTZ Inactive INNOPRAN XL 120 MG [id number] Take one by mouth daily 2 INNOPRAN XL 120 MG [id number] PROPRANOLOL HCL SR BEADS Inactive PROMETHAZINE HCL 25 MG TABS 1 Q. 4 hr. PRN PROMETHAZINE HCL 25 MG TABS 815223 PROMETHAZINE HCL Inactive POTASSIUM CHLORIDE 20 MEQ PACK by mouth twice a day prn POTASSIUM CHLORIDE 20 MEQ PACK 5486318 POTASSIUM CHLORIDE Inactive PHENADOZ 25 MG SUPP 1 every 4 hrs. PRN PHENADOZ 2 5 MG SUPP 250684 PROMETHAZINE HCL Inactive ZOFRAN 8 MG TABS 1 tab by mouth every 12 hours prn 201 05/16/09 ZOFRAN 8 MG TABS 881134 ONDANSETRON HCL Inactive OMEPRAZOLE 20 MG CPDR 1 tablet by mouth daily for GERD OMEPRAZOLE 20 MG CPDR 173264 OMEPRAZOLE Inactive CYCLOBENZAPRINE HCL 10 MG TABS 1 tablet by mouth three times daily as needed for headaches CYCLOBENZAPRINE HCL 10 MG TABS 789049 CYCLOBENZAPRINE HCL Inactive VITAMIN D3 4000 IU 1 tab 3 times daily VITAMIN D3 4000 IU Inactive PROPRANOLOL HCL 80 MG TABS 1 tab tue. and thur. 04/10 PROPRANOLOL HCL 80 MG TABS 247452 PROPRANOLOL HCL Inactive CYANOCOBALAMIN 1000 MCG/ML INJ SOLN 1 injection every 2 weeks 20 20/01/03 CYANOCOBALAMIN 1000 MCG/ML INJ SOLN 329403 CYANOCOBALAM IN Inactive MAGNESIUM GLUCONATE 250 MG TABS 1 tab tid 4 MAGNESIUM GLUCONATE 250 MG TABS 463258 MAGNESIUM GLUCONATE Inactive LOMOTIL 2.5-0.025 MG TABS 1 tab by mouth prn 4 LOMOTIL 2.5- 0.025 MG TABS 3501071 DIPHENOXYLATE-ATROPINE Inactive FLORANEX PACK 1 pack three times daily, for bowel health FLORANEX PACK LACTOBACILLUS Inactive IRON 325 (65 FE) MG TABS 1 every other day IRON 325 (65 FE) MG TABS 548096 FERROUS SULFATE Inactive FLAGYL 500 MG TABS 1 pill by mouth three times daily, for diarrh ea FLAGYL 500 MG TABS 915527 METRONIDAZOLE Inactive BACTRIM DS 800-160 MG TABS 1 pill by mouth twice daily, for UTI BACTRIM DS 800-160 MG TABS 721512 SULFAMETHOXAZOLE-TRIM ETHOPRIM Inactive Advance Directives Directive Description [...] 11 .0-15.0 platelet count 157 THOUSAND/UL 10*3/mm3 159-950 2626/04/20 mean platelet volume 8.9 fL 7.5-12.5 Lab Report: CBC W/DIFF, Comp. Metabolic Panel, Thyroid Stimulating Hormo ... - Chemistry sodium, serum 139 mmol/L 656-599 0464/10/20 carbon dioxide, venous blood 32.2 mmol/L 21.0-32 [...] - Chemi stry cholesterol, serum 200 mg/dL 800-562 0049/11/22 triglyceride, serum, fasting 129 mg/dL 30-200 HDL cholesterol, serum 56 mg/dL 32-96 LDL cholesterol, serum 118 mg/dL 0-130 calcium, serum 9.0 mg/dL 8.5-10.1 Lab Report: MicroAlb Random w/creat/6517 - Urinalysis microalbumin/total urine volume 8 mg/L Units converted. See lab report for original value. microalbumin/creatinine ratio, urine 15 MCG/MG CREAT mg/L <30 Encounters Code Encounter Date Provider Facility CPT-19712 Level 3 Est. Patient 17:54:48 CDT Kylie boyd [facility] [place] CPT-31392 Level 3 Est. Patient 16:26:30 CDT Kina blackmon [facility] CPT-40550 Level 3 New Patient 16:22:01 SEO ANALYST Adam Yates MD [facility] CPT-39176 Level 4 Est. Patient 17:00:48 CDT Kylie Lund [facility] [place] CPT-92553 Level 3 Est. Patient 13:15:54 CDT Kylie Lund [facility] CPT-39845 Level 3 Est. Patient 09:10:11 CDT Kylie Kevon [facility] CPT-33928 Level 4 Est. Patient 12:08:30 SEO ANALYST Hope cohn MD [facility] CPT-75731 Level 4 Est. Patient 19:08:42 SEO ANALYST Hope cohn MD [facility] CPT-14265 Level 4 Est. Patient 20:04:51 CDT Hope cohn MD [facility] CPT-78718 Level 3 New Patient 01:46:11 SEO ANALYST Hope landers MD PhD [facility] Procedures Code Procedure Name Date Entry Date Standard Desc ription CPT-G0439 [facility] Annual Wellness Exam 17:54:53 CDT CPT-03532 Foot, left, comp min 3V - XRAY USE ONLY 12:22:49 CDT CPT-G0009 Administration of Pneumococcal Vaccine 3 12:18:00 CDT CPT-44506 Pneumovax 23 Injection Injectable 25 MCG /0.5ML 12:18:00 CDT CPT-J0897 Prolia 60 mg 14:14:16 SEO ANALYST CPT-02891 Abx/Therapy Injection 14:14:15 SEO ANALYST CPT-27409 Lipid - LAB USE ONLY 10:01:52 SEO ANALYST 2 CPT-64235 Calcium - LAB USE ONLY 10:01:51 SEO ANALYST CPT-40715 Venipuncture Draw Fee 10:01:51 SEO ANALYST CPT-LR Lesion Removal 16:22:01 SEO ANALYST CPT-15570 TSH - LAB USE ONLY 14:26:02 CDT CPT-92000 CMP - LAB USE ONLY 14:26:01 CDT CPT-74876 CBC with Diff - LAB USE ONLY 14:26:01 CDT 2 CPT-70189 Venipuncture Draw Fee 14:26:01 CDT CPT-26270 First Vx - Ix admin for Medicare patients 13:27:08 CDT CPT-12363 Fluzone High-Dose Intramuscular Suspension 11/26 13:27:08 CDT CPT-G0438 Initial Annual Wellness Exam 14:19:57 CD T CPT-G0009 Administration of Pneumococcal Vaccine 9 11:36:25 CDT CPT-79835 Prevnar 13 Intramuscular Suspension 1 1:36:25 CDT CPT-19187 Prevnar 13 Intramuscular Suspension 1 0:40:58 CDT CPT-J0897 Prolia 60 mg 10:37:16 CDT CPT-58991 Abx/Therapy Injection 10:37:16 CDT CPT-J0897 Prolia 60 mg 16:09:34 SEO ANALYST CPT-J0897 Prolia 60 mg 11:10:35 SEO ANALYST CPT-16612 Abx/Therapy Injection 11:10:35 SEO ANALYST CPT-000 Give Appropriate Flu Vaccine 17:01:15 SEO ANALYST 2 CPT-25630 Fluzone High Dose (65+) 15:03:08 SEO ANALYST 02/15 CPT-31694 Immunization Single Admin 15:03:08 SEO ANALYST 2014 CPT-OV Office Visit 15:58:06 CDT CPT-J0897 Prolia 60 mg 08:45:38 CDT CPT-80629 Abx/Therapy Injection 08:45:38 CDT CPT-J3420 Vitamin B12 1000mcg (Cyanocobalamin) 09:26:20 SEO ANALYST CPT-75114 Abx/Therapy Injection 09:26:20 SEO ANALYST CPT-J3420 Vitamin B12 1000mcg (Cyanocobalamin) 09:44:40 SEO ANALYST CPT-47426 Abx/Therapy Injection 09:44:40 SEO ANALYST CPT-J3420 Vitamin B12 1000mcg (Cyanocobalamin) 09:15:54 SEO ANALYST CPT-92673 Abx/Therapy Injection 09:15:54 SEO ANALYST CPT-J3420 Vitamin B12 1000mcg (Cyanocobalamin) 09:46:44 SEO ANALYST CPT-20433 Abx/Therapy Injection 09:46:44 SEO ANALYST CPT-J3420 Vitamin B12 1000mcg (Cyanocobalamin) 09:47:34 SEO ANALYST CPT-71661 Abx/Therapy Injection 09:47:34 SEO ANALYST CPT-J3420 Vitamin B12 1000mcg (Cyanocobalamin) 14:35:50 SEO ANALYST CPT-J3420 Vitamin B12 1000mcg (Cyanocobalamin) 09:25:05 SEO ANALYST CPT-60837 Abx/Therapy Injection 09:25:05 SEO ANALYST CPT-G0008 Administration of Influenza Virus Vaccine 13:36:47 CDT CPT-33254 Fluzone High-Dose Intramuscular Suspension 11/15 13:36:47 CDT CPT-J0897 Prolia 60 mg 08:50:41 CDT CPT-65238 Abx/Therapy Injection 08:50:41 CDT CPT-68570 Bone Density 12:06:12 CDT CPT-37409 Bone Density 08:54:40 CDT CPT-OV Office Visit 15:37:02 CDT CPT-34195 Postop F/U Visit 15:47:49 CDT CPT-04556 Postop F/U Visit 15:21:02 CDT CPT-[facility] Transitional Care Mgmt-High 07:52:27 CDT 20 20/06/01 CPT-03150 Venipuncture Draw Fee 13:51:18 CDT CPT-88313 Venipuncture Draw Fee 10:14:55 SEO ANALYST CPT-03616 Venipuncture Draw Fee 13:39:45 SEO ANALYST CPT-OV Office Visit 15:11:22 SEO ANALYST CPT-07252 Venipuncture Draw Fee 09:20:49 SEO ANALYST CPT-31448 Venipuncture Draw Fee 16:52:15 SEO ANALYST CPT-13694 Venipuncture Draw Fee 10:37:24 SEO ANALYST CPT-74498 Venipuncture Draw Fee 08:21:21 SEO ANALYST CPT-81675 Venipuncture Draw Fee 08:30:20 SEO ANALYST CPT-16144 Venipuncture Draw Fee 14:53:21 SEO ANALYST CPT-62904 Venipuncture Draw Fee 09:40:56 SEO ANALYST CPT-22878 Venipuncture Draw Fee 10:30:47 SEO ANALYST CPT-03982 Venipuncture Draw Fee 10:46:17 SEO ANALYST CPT-81733 Venipuncture Draw Fee 11:12:45 SEO ANALYST CPT-25074 Venipuncture Draw Fee 09:53:33 SEO ANALYST CPT-54980 Venipuncture Draw Fee 11:53:51 SEO ANALYST CPT-24134 Venipuncture Draw Fee 10:33:50 SEO ANALYST CPT-50502 Venipuncture Draw Fee 10:05:01 SEO ANALYST CPT-41810 Venipuncture Draw Fee 14:32:52 SEO ANALYST CPT-24387 Venipuncture Draw Fee 09:46:13 SEO ANALYST CPT-76992 Venipuncture Draw Fee 11:34:27 SEO ANALYST CPT-24675 Venipuncture Draw Fee 13:17:16 SEO ANALYST CPT-59364 Venipuncture Draw Fee 12:05:39 CDT CPT-96485 Venipuncture Draw Fee 12:49:12 CDT CPT-42809 Venipuncture Draw Fee 12:37:18 CDT CPT-78875 Venipuncture Draw Fee 10:57:11 CDT CPT-60389 Venipuncture Draw Fee 13:47:40 CDT CPT-64893 Venipuncture Draw Fee 10:02:17 CDT CPT-60752 TB Tubersol 17:32:32 CDT CPT-OV Office Visit 16:21:53 CDT CPT-OV Office Visit 15:49:22 CDT CPT-OV Office Visit 17:16:31 CDT CPT-OV Office Visit 10:43:31 CDT
--- OUTSIDE RECORDS SUMMARY | 2019-02-09 12:29 | XMS REPORT | Clinical Summary ---
Author Author Renaldo, Florecita Munoz Organization [facility] Functional Neuromodulation Address Unknown Phone Unavailable Allergies, Adverse Reactions, [...] PhD Hyperpotassemia GERD 530.81 Resolved Kylie Yokum [employer] Esophageal reflux Health maintenance exam V70.0 Resolved Adolfo Yates MD Routine general medical examination at a health care facility Anemia 285.9 Resolved Kylie Yanet [employer] Anemia, unspecified Personal history of malignant neoplasm of large intestine V10.05 Active Adam Yates MD Personal history of malignant neoplasm of large intestine Hypomagnesemia 275.2 Resolved Kylie Yanet [employer] Disorders of magnesium metabolism Weakness 780.79 Resolved [...] Sebaceous cyst, scalp 706.2 Resolved Kylie Yokum [employer] Sebaceous cyst Cervical lymphadenopathy, anterior, left 785.6 Resolv ed Kylie Yokum [employer] Enlargement of lymph nodes Need for prophylactic vaccination and inoculation against in fluenza V04.81 Resolved Adam Yates MD Need for prophylactic vaccination and inoculation against influenza Preventive health care V70.0 Active Kylie Yokum [employer] Routine general medical examination at a health care facility Thyroid nodule, left 241.0 Active Kylie Yokum A PRN Nontoxic uninodular goiter Screening mammogram V76.12 Active Kylie Yogabbium AP RN Other screening mammogram Mandy 706.2 Resolved Kylie Yokum [employer] Sebaceous cyst Colon cancer, ascending 153.6 Resolved Kylie Yok um [employer] Malignant neoplasm of ascending colon Foot pain, left 729.5 Active 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 Pain in limb Splinter 919.6 Active Kylie Yokum [employer] Superficial foreign body (splinter) of other, multiple, and unspecified sites, without major open wound and without mention of infection ABDOMINAL PAIN, RIGHT LOWER QUADRANT ICD-789.03 Inactive Kina Joshua [employer] ADENOCARCINOMA, COLON, 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 Dick Yates MD ABDOMINAL PAIN, GENERALIZED ICD-789.07 Inactive Hope Benavidez MD PhD FEVER UNSPECIFIED ICD-780.60 Inactive Hope cohn MD PhD UNSPECIFIED VENOUS INSUFFICIENCY ICD-459.81 Elda ctive dAam Yates MD ADENOCARCINOMA, 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 Inac tive Hope Benavidez MD PhD Hyperkalemia ICD-276.7 Inactive Hope Benavidez MD PhD GERD ICD-530.81 Inactive Kylie Holt [employer] 2015 Health maintenance exam ICD-V70.0 Inactive Adolfo Yates MD Anemia ICD-285.9 Inactive Kylie Holt [employer] 07/24 Hypomagnesemia ICD-275.2 Inactive Kylie Holt [employer] Weakness ICD-780.79 Inactive Hope Benavidez MD P [...] Sebaceous cyst, scalp ICD-706.2 Inactive Tracy Holt [employer] Cervical lymphadenopathy, anterior, left ICD-785.6 Inactive Kylie Holt [employer] Need for prophylactic vaccination and inoculation against in fluenza ICD-V04.81 Inactive Adam Yates MD Mandy ICD-706.2 Inactive Kylie Holt [employer] 07/20 Colon cancer, ascending ICD-153.6 Inactive Gabbi Holt [employer] Medication List Medication Instructions Start Date Stop Date Generic Name NDC Status Provider Patient Instruction COQ10 100 MG ORAL CAPS 1 daily COENZYME Q10 374057626 20 Active LETY Nation Active VITAMIN D3 2000 UNIT ORAL CAPS Melaleuca-One daily CHOLECALCIFEROL 41470877428 Active Kylie Holt APRN Active PROBIOTIC DAILY ORAL CAPS Take one daily PROBIOTIC PRODUCT 85188845760 Active Kylie Holt APRN Active IRON 325 (65 FE) MG TABS 1 every other day FERR OUS SULFATE 13004495022 No Longer Active Kylie Holt APRN Active FLORANEX PACK 1 pack three times daily, for bowel health LACTOBACILLUS 96198992870 No Longer Active Kylie Holt APRN Active LOMOTIL 2.5-0.025 MG TABS 1 tab by mouth prn 4 DIPHENOXYLATE-ATROPINE 68382839857 No Longer Active Kylie Holt APRN Active MAGNESIUM GLUCONATE 250 MG TABS 1 tab tid 4 MAGNESIUM GLUCONATE 78242480215 No Longer Active Kylie Holt APRN Active CYANOCOBALAMIN 1000 MCG/ML INJ SOLN 1 injection every 2 weeks 20 20/01/03 CYANOCOBALAMIN 81850795224 No Longer Active Kylie Holt APRN Active ATENOLOL 25 MG ORAL TABS 1/2 pill by mouth daily, for headac hes, blood pressure ATENOLOL 52139860158 Active Kylieshubham Holt APRN Active PROPRANOLOL HCL 80 MG TABS 1 tab tue. and thur. 04/10 PROPRANOLOL HCL 64680160404 No Longer Active Hope Benavidez MD PhD A ctive VITAMIN D3 4000 IU 1 tab 3 times daily VITAMIN D3 4000 IU No Longer Active Hope Benavidez MD PhD Active BACTRIM DS 800-160 MG TABS 1 pill by mouth twice daily, for UTI SULFAMETHOXAZOLE-TRIMETHOPRIM 92666443225 No Longer Active A attila Benavidez MD PhD Active PROLIA 60 MG/ML SOLN 1 shot every 6 months for osteoprosis DENOSUMAB 20848115452 Active Hope Benavidez MD PhD Active CALCIUM + D + K 750-500-40 MG-UNT-MCG TABS 1 tab by mouth tw ice daily CALCIUM-VITAMIN D-VITAMIN K 10161313856 Active Hope landers MD PhD Active DAILY VALUE MULTIVITAMIN TABS 1 tab by mouth twice daily MULTIPLE VITAMIN 41845573552 Active Hope Benavidez MD PhD Active FISH OIL 306 MG CAPS 1 tab by mouth three times daily OMEGA-3 FATTY ACIDS 29117508031 Active Hope Benavidez MD PhD Active LUTEIN 10 MG TABS 1 tab daily LUTEIN 19535904723 Act cash Hope Benavidez MD PhD Active TRIAMTERENE-HCTZ 37.5-25 MG TABS 1 tab by mouth daily TRIAMTERENE-HCTZ 38909388398 Active Kylie Holt APRN Active CYCLOBENZAPRINE HCL 10 MG TABS 1 tablet by mouth three times daily as needed for headaches CYCLOBENZAPRINE HCL 95665084887 No Longe r Active Adam Yates MD Active OMEPRAZOLE 20 MG CPDR 1 tablet by mouth daily for GERD OMEPRAZOLE 11938568773 No Longer Active Adam Yates MD A ctive ZOFRAN 8 MG TABS 1 tab by mouth every 12 hours prn 201 05/16/09 ONDANSETRON HCL 08695000637 No Longer Active Adam Yates MD Active PHENADOZ 25 MG SUPP 1 every 4 hrs. PRN PROMETHA ZINE HCL 55462583693 No Longer Active Adam Yates MD Active POTASSIUM CHLORIDE 20 MEQ PACK by mouth twice a day prn POTASSIUM CHLORIDE 38446168979 No Longer Active Adam Yates MD Active PROMETHAZINE HCL 25 MG TABS 1 Q. 4 hr. PRN PROM ETHAZINE HCL 56781705007 No Longer Active Adam Yates MD Active INNOPRAN XL 120 MG [id number] Take one by mouth daily 2 PROPRANOLOL HCL SR BEADS 49385161906 No Longer Active Adam Yates MD A ctive FLAGYL 500 MG TABS 1 pill by mouth three times daily, for diarrh ea METRONIDAZOLE 39117440146 No Longer Active Hope Benavidez MD PhD Active DYAZIDE 37.5-25 MG CAPS 1 qd TRIAMTERENE-HC TZ 89565651726 No Longer Active Hope Benavidez MD PhD Active PROZAC 20 MG CAPS 1 q d FLUOXETINE HCL 69701 360048 No Longer Active Hope Benavidez MD PhD Active SIMVASTATIN 40 MG TABS 1 qd SIMVASTATIN 004 22753260 No Longer Active Adam Yates MD Active MELOXICAM 15 MG TABS 1 qd MELOXICAM 3060356 3868 No Longer Active Adam Yates MD Active IMODIUM A-D 2 MG TABS 2 onset at diarrhea and prn. LOPERAMIDE HCL 80795129548 Active Hope Benavidez MD PhD Active EXCEDRIN EXTRA STRENGTH 250-250-65 MG TABS 1-2 q6h PRN headache 201 04/16/21 PIRTMRA-[id number]-KCDWNTIM 79829978136 Active Hope Benavidez MD PhD Active FLAGYL 500 MG TABS 1 qid METRONIDAZOLE 88842 225834 No Longer Active Adam Yates MD Active LEVAQUIN 750 MG TABS 1 qd LEVOFLOXACIN 5486 5978689 No Longer Active Adam Yates MD Active ADULT ASPIRIN LOW STRENGTH 81 MG TBDP 1 qd A SPIRIN 02371959218 Active Hope Benavidez MD PhD Active LEVAQUIN 750 MG TABS 1 qd LEVAQUIN 750 MG T ABS 937078 LEVOFLOXACIN Inactive FLAGYL 500 MG TABS 1 qid FLAGYL 500 MG TABS 359374 METRONIDAZOLE Inactive MELOXICAM 15 MG TABS 1 qd MELOXICAM 15 MG T ABS 859748 MELOXICAM Inactive SIMVASTATIN 40 MG TABS 1 qd SIMVASTATIN 40 MG TABS 832889 SIMVASTATIN Inactive PROZAC 20 MG CAPS 1 q d PROZAC 20 MG CAPS 31 0385 FLUOXETINE HCL Inactive DYAZIDE 37.5-25 MG CAPS 1 qd DYAZIDE 37.5 -25 MG CAPS 596631 TRIAMTERENE-HCTZ Inactive INNOPRAN XL 120 MG [id number] Take one by mouth daily 2 INNOPRAN XL 120 MG [id number] PROPRANOLOL HCL SR BEADS Inactive PROMETHAZINE HCL 25 MG TABS 1 Q. 4 hr. PRN PROMETHAZINE HCL 25 MG TABS 459440 PROMETHAZINE HCL Inactive POTASSIUM CHLORIDE 20 MEQ PACK by mouth twice a day prn POTASSIUM CHLORIDE 20 MEQ PACK 5577750 POTASSIUM CHLORIDE Inactive PHENADOZ 25 MG SUPP 1 every 4 hrs. PRN PHENADOZ 2 5 MG SUPP 917545 PROMETHAZINE HCL Inactive ZOFRAN 8 MG TABS 1 tab by mouth every 12 hours prn 201 05/16/09 ZOFRAN 8 MG TABS 957387 ONDANSETRON HCL Inactive OMEPRAZOLE 20 MG CPDR 1 tablet by mouth daily for GERD OMEPRAZOLE 20 MG CPDR 181300 OMEPRAZOLE Inactive CYCLOBENZAPRINE HCL 10 MG TABS 1 tablet by mouth three times daily as needed for headaches CYCLOBENZAPRINE HCL 10 MG TABS 986387 CYCLOBENZAPRINE HCL Inactive VITAMIN D3 4000 IU 1 tab 3 times daily VITAMIN D3 4000 IU Inactive PROPRANOLOL HCL 80 MG TABS 1 tab tue. and thur. 04/10 PROPRANOLOL HCL 80 MG TABS 652404 PROPRANOLOL HCL Inactive CYANOCOBALAMIN 1000 MCG/ML INJ SOLN 1 injection every 2 weeks 20 20/01/03 CYANOCOBALAMIN 1000 MCG/ML INJ SOLN 388210 CYANOCOBALAM IN Inactive MAGNESIUM GLUCONATE 250 MG TABS 1 tab tid 4 MAGNESIUM GLUCONATE 250 MG TABS 847455 MAGNESIUM GLUCONATE Inactive LOMOTIL 2.5-0.025 MG TABS 1 tab by mouth prn 4 LOMOTIL 2.5- 0.025 MG TABS 7353019 DIPHENOXYLATE-ATROPINE Inactive FLORANEX PACK 1 pack three times daily, for bowel health FLORANEX PACK LACTOBACILLUS Inactive IRON 325 (65 FE) MG TABS 1 every other day IRON 325 (65 FE) MG TABS 312745 FERROUS SULFATE Inactive FLAGYL 500 MG TABS 1 pill by mouth three times daily, for diarrh ea FLAGYL 500 MG TABS 476520 METRONIDAZOLE Inactive BACTRIM DS 800-160 MG TABS 1 pill by mouth twice daily, for UTI BACTRIM DS 800-160 MG TABS 230401 SULFAMETHOXAZOLE-TRIM ETHOPRIM Inactive Advance Directives Directive Description [...] 11 .0-15.0 platelet count 157 THOUSAND/UL 10*3/mm3 489-826 8790/04/20 mean platelet volume 8.9 fL 7.5-12.5 Lab Report: CBC W/DIFF, Comp. Metabolic Panel, Thyroid Stimulating Hormo ... - Chemistry sodium, serum 139 mmol/L 384-948 6486/10/20 carbon dioxide, venous blood 32.2 mmol/L 21.0-32 [...] - Chemi stry cholesterol, serum 200 mg/dL 397-303 6732/11/22 triglyceride, serum, fasting 129 mg/dL 30-200 HDL cholesterol, serum 56 mg/dL 32-96 LDL cholesterol, serum 118 mg/dL 0-130 calcium, serum 9.0 mg/dL 8.5-10.1 Lab Report: MicroAlb Random w/creat/6517 - Urinalysis microalbumin/total urine volume 8 mg/L Units converted. See lab report for original value. microalbumin/creatinine ratio, urine 15 MCG/MG CREAT mg/L <30 Encounters Code Encounter Date Provider Facility CPT-87067 Level 3 Est. Patient 17:54:48 CDT Kylie boyd [facility] CPT-46477 Level 3 Est. Patient 16:26:30 CDT Kina blackmon [facility] CPT-39373 Level 3 New Patient 16:22:01 LASER OPERATOR Adam Yates MD [facility] CPT-95542 Level 4 Est. Patient 17:00:48 CDT Kylie Lund [facility] CPT-28695 Level 3 Est. Patient 13:15:54 CDT Kylieshubham Lund [facility] CPT-95576 Level 3 Est. Patient 09:10:11 CDT Kylie Lund [facility] CPT-75233 Level 4 Est. Patient 12:08:30 LASER OPERATOR Hope cohn MD [facility] CPT-30196 Level 4 Est. Patient 19:08:42 LASER OPERATOR Hope cohn MD [facility] CPT-90470 Level 4 Est. Patient 20:04:51 CDT Hope cohn MD [facility] CPT-77142 Level 3 New Patient 01:46:11 LASER OPERATOR Hope landers MD [facility] Procedures Code Procedure Name Date Entry Date Standard Desc ription CPT-J0897 Prolia 60 mg 14:55:42 CDT CPT-76594 Abx/Therapy Injection 14:55:42 CDT CPT-55607 Bone Density - XRAY USE ONLY 10:27:12 CDT 2 CPT-G0439 Subsequent Annual Wellness Exam 17:54:53 CDT CPT-29447 Foot, left, comp min 3V - XRAY USE ONLY 12:22:49 CDT CPT-G0009 Administration of Pneumococcal Vaccine 3 12:18:00 CDT CPT-09576 Pneumovax 23 Injection Injectable 25 MCG /0.5ML 12:18:00 CDT CPT-J0897 Prolia 60 mg 14:14:16 LASER OPERATOR CPT-05234 Abx/Therapy Injection 14:14:15 LASER OPERATOR CPT-24026 Lipid - LAB USE ONLY 10:01:52 LASER OPERATOR 2 CPT-05550 Calcium - LAB USE ONLY 10:01:51 LASER OPERATOR CPT-63072 Venipuncture Draw Fee 10:01:51 LASER OPERATOR CPT-LR Lesion Removal 16:22:01 LASER OPERATOR CPT-09886 TSH - LAB USE ONLY 14:26:02 CDT CPT-18829 CMP - LAB USE ONLY 14:26:01 CDT CPT-10015 CBC with Diff - LAB USE ONLY 14:26:01 CDT 2 CPT-05158 Venipuncture Draw Fee 14:26:01 CDT CPT-38962 First Vx - Ix admin for Medicare patients 13:27:08 CDT CPT-74072 Fluzone High-Dose Intramuscular Suspension 11/26 13:27:08 CDT CPT-G0438 Initial Annual Wellness Exam 14:19:57 CD T CPT-G0009 Administration of Pneumococcal Vaccine 9 11:36:25 CDT CPT-40043 Prevnar 13 Intramuscular Suspension 1 1:36:25 CDT CPT-96898 Prevnar 13 Intramuscular Suspension 1 0:40:58 CDT CPT-J0897 Prolia 60 mg 10:37:16 CDT CPT-58004 Abx/Therapy Injection 10:37:16 CDT CPT-J0897 Prolia 60 mg 16:09:34 LASER OPERATOR CPT-J0897 Prolia 60 mg 11:10:35 LASER OPERATOR CPT-20452 Abx/Therapy Injection 11:10:35 LASER OPERATOR CPT-000 Give Appropriate Flu Vaccine 17:01:15 LASER OPERATOR 2 CPT-08754 Fluzone High Dose (65+) 15:03:08 LASER OPERATOR 02/15 CPT-38207 Immunization Single Admin 15:03:08 LASER OPERATOR 2014 CPT-OV Office Visit 15:58:06 CDT CPT-J0897 Prolia 60 mg 08:45:38 CDT CPT-39290 Abx/Therapy Injection 08:45:38 CDT CPT-J3420 Vitamin B12 1000mcg (Cyanocobalamin) 09:26:20 LASER OPERATOR CPT-36710 Abx/Therapy Injection 09:26:20 LASER OPERATOR CPT-J3420 Vitamin B12 1000mcg (Cyanocobalamin) 09:44:40 LASER OPERATOR CPT-01967 Abx/Therapy Injection 09:44:40 LASER OPERATOR CPT-J3420 Vitamin B12 1000mcg (Cyanocobalamin) 09:15:54 LASER OPERATOR CPT-00283 Abx/Therapy Injection 09:15:54 LASER OPERATOR CPT-J3420 Vitamin B12 1000mcg (Cyanocobalamin) 09:46:44 LASER OPERATOR CPT-18647 Abx/Therapy Injection 09:46:44 LASER OPERATOR CPT-J3420 Vitamin B12 1000mcg (Cyanocobalamin) 09:47:34 LASER OPERATOR CPT-20211 Abx/Therapy Injection 09:47:34 LASER OPERATOR CPT-J3420 Vitamin B12 1000mcg (Cyanocobalamin) 14:35:50 LASER OPERATOR CPT-J3420 Vitamin B12 1000mcg (Cyanocobalamin) 09:25:05 LASER OPERATOR CPT-54177 Abx/Therapy Injection 09:25:05 LASER OPERATOR CPT-G0008 Administration of Influenza Virus Vaccine 13:36:47 CDT CPT-50759 Fluzone High-Dose Intramuscular Suspension 11/15 13:36:47 CDT CPT-J0897 Prolia 60 mg 08:50:41 CDT CPT-09919 Abx/Therapy Injection 08:50:41 CDT CPT-16690 Bone Density 12:06:12 CDT CPT-44651 Bone Density 08:54:40 CDT CPT-OV Office Visit 15:37:02 CDT CPT-39326 Postop F/U Visit 15:47:49 CDT CPT-04370 Postop F/U Visit 15:21:02 CDT CPT-[facility] Transitional Care Mgmt-High 07:52:27 CDT 20 20/06/01 CPT-75338 Venipuncture Draw Fee 13:51:18 CDT CPT-49812 Venipuncture Draw Fee 10:14:55 LASER OPERATOR CPT-67128 Venipuncture Draw Fee 13:39:45 LASER OPERATOR CPT-OV Office Visit 15:11:22 LASER OPERATOR CPT-28779 Venipuncture Draw Fee 09:20:49 LASER OPERATOR CPT-94127 Venipuncture Draw Fee 16:52:15 LASER OPERATOR CPT-22745 Venipuncture Draw Fee 10:37:24 LASER OPERATOR CPT-81631 Venipuncture Draw Fee 08:21:21 LASER OPERATOR CPT-00779 Venipuncture Draw Fee 08:30:20 LASER OPERATOR CPT-80570 Venipuncture Draw Fee 14:53:21 LASER OPERATOR CPT-10646 Venipuncture Draw Fee 09:40:56 LASER OPERATOR CPT-52858 Venipuncture Draw Fee 10:30:47 LASER OPERATOR CPT-13925 Venipuncture Draw Fee 10:46:17 LASER OPERATOR CPT-00212 Venipuncture Draw Fee 11:12:45 LASER OPERATOR CPT-67439 Venipuncture Draw Fee 09:53:33 LASER OPERATOR CPT-43808 Venipuncture Draw Fee 11:53:51 LASER OPERATOR CPT-82707 Venipuncture Draw Fee 10:33:50 LASER OPERATOR CPT-99374 Venipuncture Draw Fee 10:05:01 LASER OPERATOR CPT-73790 Venipuncture Draw Fee 14:32:52 LASER OPERATOR CPT-35273 Venipuncture Draw Fee 09:46:13 LASER OPERATOR CPT-17187 Venipuncture Draw Fee 11:34:27 LASER OPERATOR CPT-70356 Venipuncture Draw Fee 13:17:16 LASER OPERATOR CPT-65044 Venipuncture Draw Fee 12:05:39 CDT CPT-19779 Venipuncture Draw Fee 12:49:12 CDT CPT-17283 Venipuncture Draw Fee 12:37:18 CDT CPT-76649 Venipuncture Draw Fee 10:57:11 CDT CPT-69139 Venipuncture Draw Fee 13:47:40 CDT CPT-74801 Venipuncture Draw Fee 10:02:17 CDT CPT-37717 TB Tubersol 17:32:32 CDT CPT-OV Office Visit 16:21:53 CDT CPT-OV Office Visit 15:49:22 CDT CPT-OV Office Visit 17:16:31 CDT CPT-OV Office Visit 10:43:31 CDT
--- OUTSIDE RECORDS SUMMARY | 2019-02-09 12:29 | XMS REPORT | Clinical Summary ---
Author Author Renaldo, Florecita Munoz Organization [facility] [employer] Address Unknown Phone Unavailable Allergies, Adverse Reactions, [...] PhD Hyperpotassemia GERD 530.81 Resolved Kylie Yokum GREEN BELT Esophageal reflux Health maintenance exam V70.0 Resolved Adolfo Yates MD Routine general medical examination at a health care facility Anemia 285.9 Resolved Kylie Yanet GREEN BELT Anemia, unspecified Personal history of malignant neoplasm of large intestine V10.05 Active Adam Yates MD Personal history of malignant neoplasm of large intestine Hypomagnesemia 275.2 Resolved Kylie Yanet GREEN BELT Disorders of magnesium metabolism Weakness 780.79 Resolved [...] Sebaceous cyst, scalp 706.2 Resolved Kylie Yokum GREEN BELT Sebaceous cyst Cervical lymphadenopathy, anterior, left 785.6 Resolv ed Kylie Yokum GREEN BELT Enlargement of lymph nodes Need for prophylactic vaccination and inoculation against in fluenza V04.81 Resolved Adam Yates MD Need for prophylactic vaccination and inoculation against influenza Preventive health care V70.0 Active Kylie Yokum GREEN BELT Routine general medical examination at a health care facility Thyroid nodule, left 241.0 Active Kylie Yokum A PRN Nontoxic uninodular goiter Screening mammogram V76.12 Active Kylie Yogabbium AP RN Other screening mammogram Mandy 706.2 Resolved Kylie Yokum GREEN BELT Sebaceous cyst Colon cancer, ascending 153.6 Resolved Kylie Yok um GREEN BELT Malignant neoplasm of ascending colon Foot pain, left 729.5 Active Sulema Naff 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 Pain in limb Splinter 919.6 Active Kylie Yokum GREEN BELT Superficial foreign body (splinter) of other, multiple, and unspecified sites, without major open wound and without mention of infection ABDOMINAL PAIN, RIGHT LOWER QUADRANT ICD-789.03 Inactive Kina Joshua GREEN BELT ADENOCARCINOMA, COLON, 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 Dick Yates MD ABDOMINAL PAIN, GENERALIZED ICD-789.07 Inactive Hope Benavidez MD PhD FEVER UNSPECIFIED ICD-780.60 Inactive Hope cohn MD PhD UNSPECIFIED VENOUS INSUFFICIENCY ICD-459.81 Elda ctive Adam Yates MD ADENOCARCINOMA, 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 Inac tive Hope Benavidez MD PhD Hyperkalemia ICD-276.7 Inactive Hope Benavidez MD PhD GERD ICD-530.81 Inactive Kylie Holt GREEN BELT 2015 Health maintenance exam ICD-V70.0 Inactive Adolfo Yates MD Anemia ICD-285.9 Inactive Kylie Holt GREEN BELT 07/24 Hypomagnesemia ICD-275.2 Inactive Kylie Holt GREEN BELT Weakness ICD-780.79 Inactive Hope Benavidez MD P [...] Sebaceous cyst, scalp ICD-706.2 Inactive Tracy Holt GREEN BELT Cervical lymphadenopathy, anterior, left ICD-785.6 Inactive Kylie Holt GREEN BELT Need for prophylactic vaccination and inoculation against in fluenza ICD-V04.81 Inactive Adam Yates MD Mandy ICD-706.2 Inactive Kylie Holt GREEN BELT 07/20 Colon cancer, ascending ICD-153.6 Inactive Gabbi Holt GREEN BELT Medication List Medication Instructions Start Date Stop Date Generic Name NDC Status Provider Patient Instruction VOLTAREN 1 % TRANSDERMAL GEL apply q 6-8 hour to left arm as needed for pain DICLOFENAC SODIUM 36766278148 Active Kylie Holt APRN Active COQ10 100 MG ORAL CAPSULE 1 daily COENZYME Q10 093713 37819 Active LETY Nation Active VITAMIN D3 2000 UNIT ORAL CAPSULE Melaleuca-One daily CHOLECALCIFEROL 35627697397 Active Kylie Holt APRN Active PROBIOTIC DAILY ORAL CAPSULE Take one daily PROBIO TIC PRODUCT 63486015883 Active Kylie Holt APRN Active IRON 325 (65 Fe) MG ORAL TABLET 1 every other day FERROUS SULFATE 27354347710 No Longer Active Kylie Holt APRN Active FLORANEX ORAL PACKET 1 pack three times daily, for bowel health LACTOBACILLUS 50848422474 No Longer Active Kylie Holt APRN Active LOMOTIL 2.5-0.025 MG ORAL TABLET 1 tab by mouth prn 23/10/23 DIPHENOXYLATE-ATROPINE 22304552149 No Longer Active Kylie Holt APRN Active MAGNESIUM GLUCONATE 250 MG ORAL TABLET 1 tab tid 23/10/23 MAGNESIUM GLUCONATE 41320986766 No Longer Active Kylie Holt APRN Active CYANOCOBALAMIN 1000 MCG/ML INJECTION SOLUTION 1 injection ev ruben 2 weeks CYANOCOBALAMIN 10100558470 No Longer Active Kylie boyd GREEN BELT Active ATENOLOL 25 MG ORAL TABLET 1/2 pill by mouth daily, fo r headaches, blood pressure ATENOLOL 91232199584 Active Kylie Holt GREEN BELT Active PROPRANOLOL HCL 80 MG ORAL TABLET 1 tab tue. and thur. PROPRANOLOL HCL 26603863273 No Longer Active Hope Benavidez MD PhD A ctive VITAMIN D3 4000 IU 1 tab 3 times daily VITAMIN D3 4000 IU No Longer Active Hpoe Benavidez MD PhD Active BACTRIM DS 800-160 MG ORAL TABLET 1 pill by mouth twice claudio y, for UTI SULFAMETHOXAZOLE-TRIMETHOPRIM 67829418560 No Longer Active Hope Benavidez MD PhD Active PROLIA 60 MG/ML SUBCUTANEOUS SOLUTION 1 shot every 6 months for osteoprosis DENOSUMAB 35613639442 Active Hope Benavidez MD PhD Active CALCIUM + D + K 750-500-40 MG-UNT-MCG ORAL TABLET 1 tab by m out twice daily CALCIUM-VITAMIN D-VITAMIN K 71038402835 Active Hope valdez MD PhD Active DAILY VALUE MULTIVITAMIN ORAL TABLET 1 tab by mouth twice daily 201 05/16/14 MULTIPLE VITAMIN 85357861130 Active Hope Benavidez MD PhD Acti ve FISH OIL 306 MG CAPS 1 tab by mouth three times daily OMEGA-3 FATTY ACIDS 23129436474 Active Hope Benavidez MD PhD Active LUTEIN 10 MG ORAL TABLET 1 tab daily LUTEIN 14125634 408 Active Hope Benavidez MD PhD Active TRIAMTERENE-HCTZ 37.5-25 MG ORAL TABLET 1 tab by mouth daily 10/22 TRIAMTERENE-HCTZ 60984844258 Active Kylie Holt GREEN BELT Active CYCLOBENZAPRINE HCL 10 MG ORAL TABLET 1 tablet by mout h three times daily as needed for headaches CYCLOBENZAPRINE HCL 29000028350 No Longer Active Adam Yates MD Active OMEPRAZOLE 20 MG ORAL CAPSULE DELAYED RELEASE 1 tablet by mo ut daily for GERD OMEPRAZOLE 92142344537 No Longer Active Adam Yates MD Active ZOFRAN 8 MG ORAL TABLET 1 tab by mouth every 12 hours prn 4 ONDANSETRON HCL 31106647065 No Longer Active Adam Yates MD Active PHENADOZ 25 MG RECTAL SUPPOSITORY 1 every 4 hrs. PRN 2 PROMETHAZINE HCL 72872743222 No Longer Active Adam Yates MD A ctive POTASSIUM CHLORIDE 20 MEQ ORAL PACKET by mouth twice a day prn 2 POTASSIUM CHLORIDE 59484924536 No Longer Active Adam Carpenter MD Active PROMETHAZINE HCL 25 MG ORAL TABLET 1 Q. 4 hr. PRN PROMETHAZINE HCL 84624216874 No Longer Active Adam Yates MD Active INNOPRAN XL 120 MG ORAL CAPSULE EXTENDED RELEASE 24 HO UR Take one by mouth daily PROPRANOLOL HCL SR BEADS 95488302660 No Longer Active Adam Yates MD Active FLAGYL 500 MG ORAL TABLET 1 pill by mouth three times daily, for diarrhea METRONIDAZOLE 14616922784 No Longer Active Hope landers MD PhD Active DYAZIDE 37.5-25 MG ORAL CAPSULE 1 qd TRIA MTERENE-HCTZ 08319063367 No Longer Active Hope Benavidez MD PhD Active PROZAC 20 MG ORAL CAPSULE 1 q d FLUOXETINE HCL 93343158701 No Longer Active Hope Benavidez MD PhD Active SIMVASTATIN 40 MG ORAL TABLET 1 qd SIMVAS TATIN 80298967760 No Longer Active Adam Yates MD Active MELOXICAM 15 MG ORAL TABLET 1 qd MELOXICAM 18730243524 No Longer Active Adam Yates MD Active IMODIUM A-D 2 MG ORAL TABLET 2 onset at diarrhea and prn. LOPERAMIDE HCL 11322401462 Active Hope Benavidez MD PhD Active EXCEDRIN EXTRA STRENGTH 250-250-65 MG ORAL TABLET 1-2 q6h VT N headache [id number] 25635159199 Active Hope Benavidez MD PhD Active FLAGYL 500 MG ORAL TABLET 1 qid METRONIDAZOL E 35726294147 No Longer Active Adam Yates MD Active LEVAQUIN 750 MG ORAL TABLET 1 qd LEVOFLOXAC IN 27769506951 No Longer Active Adam Yates MD Active ADULT ASPIRIN LOW STRENGTH 81 MG ORAL TABLET DISINTEGRATING 1 qd ASPIRIN 59382578270 Active Hope Benavidez MD PhD Active LEVAQUIN 750 MG ORAL TABLET 1 qd LEVAQUIN 750 MG ORAL TABLET 391564 LEVOFLOXACIN Inactive FLAGYL 500 MG ORAL TABLET 1 qid FLAGYL 500 MG ORAL TABLET 804687 METRONIDAZOLE Inactive MELOXICAM 15 MG ORAL TABLET 1 qd MELOXICAM 15 MG ORAL TABLET 619983 MELOXICAM Inactive SIMVASTATIN 40 MG ORAL TABLET 1 qd SIMVASTATIN 40 MG ORAL TABLET 494800 SIMVASTATIN Inactive PROZAC 20 MG ORAL CAPSULE 1 q d PROZAC 20 MG ORAL CAPSULE 175829 FLUOXETINE HCL Inactive DYAZIDE 37.5-25 MG ORAL CAPSULE 1 qd 5 DYAZIDE 37.5-25 MG ORAL CAPSULE 400811 TRIAMTERENE-HCTZ Inactive INNOPRAN XL 120 MG ORAL CAPSULE EXTENDED RELEASE 24 HO UR Take one by mouth daily INNOPRAN XL 120 MG ORAL CAPSULE EXTENDED RELEASE 24 HOUR PROPRANOLOL HCL SR BEADS Inactive PROMETHAZINE HCL 25 MG ORAL TABLET 1 Q. 4 hr. PRN 2013 PROMETHAZINE HCL 25 MG ORAL TABLET 243175 PROMETHAZINE HCL Inactive POTASSIUM CHLORIDE 20 MEQ ORAL PACKET by mouth twice a day prn 2 POTASSIUM CHLORIDE 20 MEQ ORAL PACKET 6964374 POTASSIUM CHLORIDE Inactive PHENADOZ 25 MG RECTAL SUPPOSITORY 1 every 4 hrs. PRN 2 PHENADOZ 25 MG RECTAL SUPPOSITORY 325915 PROMETHAZINE HCL Inactive ZOFRAN 8 MG ORAL TABLET 1 tab by mouth every 12 hours prn 4 ZOFRAN 8 MG ORAL TABLET 755868 ONDANSETRON HCL Inactive OMEPRAZOLE 20 MG ORAL CAPSULE DELAYED RELEASE 1 tablet by mo uth daily for GERD OMEPRAZOLE 20 MG ORAL CAPSULE DELAYED RELEASE 19 8051 OMEPRAZOLE Inactive CYCLOBENZAPRINE HCL 10 MG ORAL TABLET 1 tablet by mout h three times daily as needed for headaches CYCLOBENZAPRINE HCL 10 MG ORAL TABLET 022100 CYCLOBENZAPRINE HCL Inactive VITAMIN D3 4000 IU 1 tab 3 times daily VITAMIN D3 4000 IU Inactive PROPRANOLOL HCL 80 MG ORAL TABLET 1 tab tue. and thur. PROPRANOLOL HCL 80 MG ORAL TABLET 160431 PROPRANOLOL HCL Inacti ve CYANOCOBALAMIN 1000 MCG/ML INJECTION SOLUTION 1 injection ev ruben 2 weeks CYANOCOBALAMIN 1000 MCG/ML INJECTION SOLUTION 30 9594 CYANOCOBALAMIN Inactive MAGNESIUM GLUCONATE 250 MG ORAL TABLET 1 tab tid 20 23/10/23 MAGNESIUM GLUCONATE 250 MG ORAL TABLET 933602 MAGNESIUM GLUCONATE Inactive LOMOTIL 2.5-0.025 MG ORAL TABLET 1 tab by mouth prn 23/10/23 LOMOTIL 2.5-0.025 MG ORAL TABLET 5641771 DIPHENOXYLATE-ATROPINE Inac tive FLORANEX ORAL PACKET 1 pack three times daily, for bowel health FLORANEX ORAL PACKET LACTOBACILLUS Inactive IRON 325 (65 Fe) MG ORAL TABLET 1 every other day 2015 IRON 325 (65 Fe) MG ORAL TABLET 228980 FERROUS SULFATE Inactive FLAGYL 500 MG ORAL TABLET 1 pill by mouth three times daily, for diarrhea FLAGYL 500 MG ORAL TABLET 766936 METRONIDAZOLE I nactive BACTRIM DS 800-160 MG ORAL TABLET 1 pill by mouth twice claudio y, for UTI BACTRIM DS 800-160 MG ORAL TABLET 173915 SULFAMETHOXAZOLE-TRIMETHOPRIM Inactive Advance Directives Directive Description Start [...] 11 .0-15.0 platelet count 157 THOUSAND/UL 10*3/mm3 817-012 4125/04/20 mean platelet volume 8.9 fL 7.5-12.5 Lab Report: CEA - Serology carcinoembryonic antigen 0.9 ng/mL Lab Report: Lipid Panel, Calcium - Chemi stry cholesterol, serum 200 mg/dL [phone]/11/22 triglyceride, serum, fasting 129 mg/dL 30-200 HDL cholesterol, serum 56 mg/dL 32-96 LDL cholesterol, serum 118 mg/dL 0-130 calcium, serum 9.0 mg/dL 8.5-10.1 Lab Report: MicroAlb Random w/creat/6517 - Urinalysis microalbumin/total urine volume 8 mg/L Units converted. See lab report for original value. microalbumin/creatinine ratio, urine 15 MCG/MG CREAT mg/L <30 Encounters Code Encounter Date Provider Facility CPT-62481 Level 3 Est. Patient 17:54:48 CDT Kylie boyd [facility] [place] CPT-41385 Level 3 Est. Patient 16:26:30 CDT Kina blackmon [facility] [place] CPT-82039 Level 3 New Patient 16:22:01 CANCER REGISTRY MANAGER Adam Yates MD [facility] CPT-09795 Level 4 Est. Patient 17:00:48 CDT Kylie Lund [facility] CPT-54429 Level 3 Est. Patient 13:15:54 CDT Kylie Lund [facility] CPT-40960 Level 3 Est. Patient 09:10:11 CDT Kylie Lund [facility] CPT-81582 Level 4 Est. Patient 12:08:30 CANCER REGISTRY MANAGER Hope cohn MD [facility] CPT-65195 Level 4 Est. Patient 19:08:42 CANCER REGISTRY MANAGER Hope cohn MD [facility] CPT-91019 Level 4 Est. Patient 20:04:51 CDT Hope cohn MD [facility] CPT-23928 Level 3 New Patient 01:46:11 CANCER REGISTRY MANAGER Hope landers MD [facility] Procedures Code Procedure Name Date Entry Date Standard Desc ription CPT-93169 First Vx - Ix admin for Medicare patients 11:19:30 CDT CPT-45400 Fluzone High-Dose Intramuscular Suspension 12/07 11:19:30 CDT CPT-J0897 Prolia 60 mg 14:55:42 CDT CPT-15846 Abx/Therapy Injection 14:55:42 CDT CPT-29543 Bone Density - XRAY USE ONLY 10:27:12 CDT 2 CPT-G0439 [facility] Annual Wellness Exam 17:54:53 CDT CPT-45149 Foot, left, comp min 3V - XRAY USE ONLY 12:22:49 CDT CPT-G0009 Administration of Pneumococcal Vaccine 3 12:18:00 CDT CPT-30999 Pneumovax 23 Injection Injectable 25 MCG /0.5ML 12:18:00 CDT CPT-J0897 Prolia 60 mg 14:14:16 CANCER REGISTRY MANAGER CPT-17100 Abx/Therapy Injection 14:14:15 CANCER REGISTRY MANAGER CPT-24715 Lipid - LAB USE ONLY 10:01:52 CANCER REGISTRY MANAGER 2 CPT-69721 Calcium - LAB USE ONLY 10:01:51 CANCER REGISTRY MANAGER CPT-22682 Venipuncture Draw Fee 10:01:51 CANCER REGISTRY MANAGER CPT-LR Lesion Removal 16:22:01 CANCER REGISTRY MANAGER CPT-23785 TSH - LAB USE ONLY 14:26:02 CDT CPT-31643 CMP - LAB USE ONLY 14:26:01 CDT CPT-17886 CBC with Diff - LAB USE ONLY 14:26:01 CDT 2 CPT-88091 Venipuncture Draw Fee 14:26:01 CDT CPT-20323 First Vx - Ix admin for Medicare patients 13:27:08 CDT CPT-52673 Fluzone High-Dose Intramuscular Suspension 11/26 13:27:08 CDT CPT-G0438 Initial Annual Wellness Exam 14:19:57 CD T CPT-G0009 Administration of Pneumococcal Vaccine 9 11:36:25 CDT CPT-69772 Prevnar 13 Intramuscular Suspension 1 1:36:25 CDT CPT-12858 Prevnar 13 Intramuscular Suspension 1 0:40:58 CDT CPT-J0897 Prolia 60 mg 10:37:16 CDT CPT-55684 Abx/Therapy Injection 10:37:16 CDT CPT-J0897 Prolia 60 mg 16:09:34 CANCER REGISTRY MANAGER CPT-J0897 Prolia 60 mg 11:10:35 CANCER REGISTRY MANAGER CPT-40831 Abx/Therapy Injection 11:10:35 CANCER REGISTRY MANAGER CPT-000 Give Appropriate Flu Vaccine 17:01:15 CANCER REGISTRY MANAGER 2 CPT-07252 Fluzone High Dose (65+) 15:03:08 CANCER REGISTRY MANAGER 02/15 CPT-23668 Immunization Single Admin 15:03:08 CANCER REGISTRY MANAGER 2014 CPT-OV Office Visit 15:58:06 CDT CPT-J0897 Prolia 60 mg 08:45:38 CDT CPT-72965 Abx/Therapy Injection 08:45:38 CDT CPT-J3420 Vitamin B12 1000mcg (Cyanocobalamin) 09:26:20 CANCER REGISTRY MANAGER CPT-71143 Abx/Therapy Injection 09:26:20 CANCER REGISTRY MANAGER CPT-J3420 Vitamin B12 1000mcg (Cyanocobalamin) 09:44:40 CANCER REGISTRY MANAGER CPT-82197 Abx/Therapy Injection 09:44:40 CANCER REGISTRY MANAGER CPT-J3420 Vitamin B12 1000mcg (Cyanocobalamin) 09:15:54 CANCER REGISTRY MANAGER CPT-68217 Abx/Therapy Injection 09:15:54 CANCER REGISTRY MANAGER CPT-J3420 Vitamin B12 1000mcg (Cyanocobalamin) 09:46:44 CANCER REGISTRY MANAGER CPT-16381 Abx/Therapy Injection 09:46:44 CANCER REGISTRY MANAGER CPT-J3420 Vitamin B12 1000mcg (Cyanocobalamin) 09:47:34 CANCER REGISTRY MANAGER CPT-39085 Abx/Therapy Injection 09:47:34 CANCER REGISTRY MANAGER CPT-J3420 Vitamin B12 1000mcg (Cyanocobalamin) 14:35:50 CANCER REGISTRY MANAGER CPT-J3420 Vitamin B12 1000mcg (Cyanocobalamin) 09:25:05 CANCER REGISTRY MANAGER CPT-39005 Abx/Therapy Injection 09:25:05 CANCER REGISTRY MANAGER CPT-G0008 Administration of Influenza Virus Vaccine 13:36:47 CDT CPT-31604 Fluzone High-Dose Intramuscular Suspension 11/15 13:36:47 CDT CPT-J0897 Prolia 60 mg 08:50:41 CDT CPT-30843 Abx/Therapy Injection 08:50:41 CDT CPT-60348 Bone Density 12:06:12 CDT CPT-67119 Bone Density 08:54:40 CDT CPT-OV Office Visit 15:37:02 CDT CPT-06174 Postop F/U Visit 15:47:49 CDT CPT-11315 Postop F/U Visit 15:21:02 CDT CPT-[facility] Transitional Care Mgmt-High 07:52:27 CDT 20 20/06/01 CPT-11862 Venipuncture Draw Fee 13:51:18 CDT CPT-95298 Venipuncture Draw Fee 10:14:55 CANCER REGISTRY MANAGER CPT-16959 Venipuncture Draw Fee 13:39:45 CANCER REGISTRY MANAGER 2014/02/ 11 CPT-OV Office Visit 15:11:22 CANCER REGISTRY MANAGER CPT-91746 Venipuncture Draw Fee 09:20:49 CANCER REGISTRY MANAGER CPT-39248 Venipuncture Draw Fee 16:52:15 CANCER REGISTRY MANAGER CPT-07231 Venipuncture Draw Fee 10:37:24 CANCER REGISTRY MANAGER CPT-23330 Venipuncture Draw Fee 08:21:21 CANCER REGISTRY MANAGER CPT-25251 Venipuncture Draw Fee 08:30:20 CANCER REGISTRY MANAGER CPT-59368 Venipuncture Draw Fee 14:53:21 CANCER REGISTRY MANAGER CPT-85826 Venipuncture Draw Fee 09:40:56 CANCER REGISTRY MANAGER CPT-37363 Venipuncture Draw Fee 10:30:47 CANCER REGISTRY MANAGER CPT-60462 Venipuncture Draw Fee 10:46:17 CANCER REGISTRY MANAGER CPT-19952 Venipuncture Draw Fee 11:12:45 CANCER REGISTRY MANAGER CPT-79030 Venipuncture Draw Fee 09:53:33 CANCER REGISTRY MANAGER CPT-10082 Venipuncture Draw Fee 11:53:51 CANCER REGISTRY MANAGER CPT-18714 Venipuncture Draw Fee 10:33:50 CANCER REGISTRY MANAGER CPT-36413 Venipuncture Draw Fee 10:05:01 CANCER REGISTRY MANAGER CPT-14446 Venipuncture Draw Fee 14:32:52 CANCER REGISTRY MANAGER CPT-52742 Venipuncture Draw Fee 09:46:13 CANCER REGISTRY MANAGER CPT-23941 Venipuncture Draw Fee 11:34:27 CANCER REGISTRY MANAGER CPT-95621 Venipuncture Draw Fee 13:17:16 CANCER REGISTRY MANAGER CPT-44104 Venipuncture Draw Fee 12:05:39 CDT CPT-04726 Venipuncture Draw Fee 12:49:12 CDT CPT-01503 Venipuncture Draw Fee 12:37:18 CDT CPT-90621 Venipuncture Draw Fee 10:57:11 CDT CPT-33523 Venipuncture Draw Fee 13:47:40 CDT CPT-91822 Venipuncture Draw Fee 10:02:17 CDT CPT-87441 TB Tubersol 17:32:32 CDT CPT-OV Office Visit 16:21:53 CDT CPT-OV Office Visit 15:49:22 CDT CPT-OV Office Visit 17:16:31 CDT CPT-OV Office Visit 10:43:31 CDT
--- OUTSIDE RECORDS SUMMARY | 2019-02-09 12:29 | XMS REPORT | Clinical Summary ---
Author Author Renaldo, Florecita Munoz Organization [facility] [place] Address Unknown Phone Unavailable Allergies, Adverse Reactions, [...] PhD Hyperpotassemia GERD 530.81 Resolved Kylie Yokum [employer] Esophageal reflux Health maintenance exam V70.0 Resolved Adolfo Yates MD Routine general medical examination at a health care facility Anemia 285.9 Resolved Kylie Holt [employer] Anemia, unspecified Personal history of malignant neoplasm of large intestine V10.05 Active Adam Yates MD Personal history of malignant neoplasm of large intestine Hypomagnesemia 275.2 Resolved Kylie Holt [employer] Disorders of magnesium metabolism Weakness 780.79 Resolved [...] Sebaceous cyst, scalp 706.2 Resolved Kylie Yokum [employer] Sebaceous cyst Cervical lymphadenopathy, anterior, left 785.6 Resolv ed Kylie Yokum [employer] Enlargement of lymph nodes Need for prophylactic vaccination and inoculation against in fluenza V04.81 Resolved Adam Yates MD Need for prophylactic vaccination and inoculation against influenza Preventive health care V70.0 Active Kylie Yokum [employer] Routine general medical examination at a health care facility Thyroid nodule, left 241.0 Active Kylie Yokum A PRN Nontoxic uninodular goiter Screening mammogram V76.12 Active Kylie Yokum AP RN Other screening mammogram Mandy 706.2 Resolved Kylie Yokum [employer] Sebaceous cyst Colon cancer, ascending 153.6 Resolved Kylei Yok um [employer] Malignant neoplasm of ascending colon Foot pain, left 729.5 Active Sulema Schwarz [employer] Pain in limb Splinter 919.6 Active Kylie Yokum [employer] Superficial foreign body (splinter) of other, multiple, and unspecified sites, without major open wound and without mention of infection ABDOMINAL PAIN, RIGHT LOWER QUADRANT ICD-789.03 Inactive Kina Joshua [employer] ADENOCARCINOMA, COLON, 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 Dick Yates MD ABDOMINAL PAIN, GENERALIZED ICD-789.07 Inactive Hope Benavidez MD PhD FEVER UNSPECIFIED ICD-780.60 Inactive Hope cohn MD PhD UNSPECIFIED VENOUS INSUFFICIENCY ICD-459.81 Elda ctive Adam Yates MD ADENOCARCINOMA, 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 Inac tive Hope Benavidez MD PhD Hyperkalemia ICD-276.7 Inactive Hope Benavidez MD PhD GERD ICD-530.81 Inactive Kylie Holt [employer] 2015 Health maintenance exam ICD-V70.0 Inactive Adolfo Yates MD Anemia ICD-285.9 Inactive Kylie Holt [employer] 07/24 Hypomagnesemia ICD-275.2 Inactive Kylie Holt [employer] Weakness ICD-780.79 Inactive Hope Benavidez MD P [...] Sebaceous cyst, scalp ICD-706.2 Inactive Tracy Holt [employer] Cervical lymphadenopathy, anterior, left ICD-785.6 Inactive Kylie Holt [employer] Need for prophylactic vaccination and inoculation against in fluenza ICD-V04.81 Inactive Adam Yates MD Mandy ICD-706.2 Inactive Kylie Holt [employer] 07/20 Colon cancer, ascending ICD-153.6 Inactive Bravo Holt [employer] Medication List Medication Instructions Start Date Stop Date Generic Name NDC Status Provider Patient Instruction COQ10 100 MG ORAL CAPS 1 daily COENZYME Q10 [id number] 20 Active LETY Nation Active VITAMIN D3 2000 UNIT ORAL CAPS Melaleuca-One daily CHOLECALCIFEROL 58984896522 Active Kylie Holt APRN Active PROBIOTIC DAILY ORAL CAPS Take one daily PROBIOTIC PRODUCT 96620773997 Active Kylie Holt APRN Active IRON 325 (65 FE) MG TABS 1 every other day FERR OUS SULFATE 68304158018 No Longer Active Kylie Holt APRN Active FLORANEX PACK 1 pack three times daily, for bowel health LACTOBACILLUS 13909454919 No Longer Active Kylie Holt APRN Active LOMOTIL 2.5-0.025 MG TABS 1 tab by mouth prn 4 DIPHENOXYLATE-ATROPINE 44130334744 No Longer Active Kylie Holt APRN Active MAGNESIUM GLUCONATE 250 MG TABS 1 tab tid 4 MAGNESIUM GLUCONATE 51820006233 No Longer Active Kylie Lundum [employer] Active CYANOCOBALAMIN 1000 MCG/ML INJ SOLN 1 injection every 2 weeks 20 20/01/03 CYANOCOBALAMIN 85509695801 No Longer Active Kylie Holt APRN Active ATENOLOL 25 MG ORAL TABS 1/2 pill by mouth daily, for headac hes, blood pressure ATENOLOL 59708127845 Active Kylieshubham Holt [employer] Active PROPRANOLOL HCL 80 MG TABS 1 tab tue. and thur. 04/10 PROPRANOLOL HCL 33581268892 No Longer Active Hope Benavidez MD PhD A ctive VITAMIN D3 4000 IU 1 tab 3 times daily VITAMIN D3 4000 IU No Longer Active Hope Benavidez MD PhD Active BACTRIM DS 800-160 MG TABS 1 pill by mouth twice daily, for UTI SULFAMETHOXAZOLE-TRIMETHOPRIM 86833971815 No Longer Active A attila Benavidez MD PhD Active PROLIA 60 MG/ML SOLN 1 shot every 6 months for osteoprosis DENOSUMAB 49140429122 Active Hope Benavidez MD PhD Active CALCIUM + D + K 750-500-40 MG-UNT-MCG TABS 1 tab by mouth tw ice daily CALCIUM-VITAMIN D-VITAMIN K 66996190760 Active Hope landers MD PhD Active DAILY VALUE MULTIVITAMIN TABS 1 tab by mouth twice daily MULTIPLE VITAMIN 34562842382 Active Hope Benavidez MD PhD Active FISH OIL 306 MG CAPS 1 tab by mouth three times daily OMEGA-3 FATTY ACIDS 83602545279 Active Hope Benavidez MD PhD Active LUTEIN 10 MG TABS 1 tab daily LUTEIN 93483669241 Act cash Hope Benavidez MD PhD Active TRIAMTERENE-HCTZ 37.5-25 MG TABS 1 tab by mouth daily TRIAMTERENE-HCTZ 17386887464 Active Kylie Holt APRN Active CYCLOBENZAPRINE HCL 10 MG TABS 1 tablet by mouth three times daily as needed for headaches CYCLOBENZAPRINE HCL 95863578177 No Longe r Active Adam Yates MD Active OMEPRAZOLE 20 MG CPDR 1 tablet by mouth daily for GERD OMEPRAZOLE 02952168222 No Longer Active Adam Yates MD A ctive ZOFRAN 8 MG TABS 1 tab by mouth every 12 hours prn 201 05/16/09 ONDANSETRON HCL 14063120607 No Longer Active Adam Yates MD Active PHENADOZ 25 MG SUPP 1 every 4 hrs. PRN PROMETHA ZINE HCL 49990307027 No Longer Active Adam Yates MD Active POTASSIUM CHLORIDE 20 MEQ PACK by mouth twice a day prn POTASSIUM CHLORIDE 77874748158 No Longer Active Adam Yates MD Active PROMETHAZINE HCL 25 MG TABS 1 Q. 4 hr. PRN PROM ETHAZINE HCL 26594863619 No Longer Active Adam Yates MD Active INNOPRAN XL 120 MG [id number] Take one by mouth daily 2 PROPRANOLOL HCL SR BEADS 72754178131 No Longer Active Adam Yates MD A ctive FLAGYL 500 MG TABS 1 pill by mouth three times daily, for diarrh ea METRONIDAZOLE 00261086659 No Longer Active Hope Benavidez MD PhD Active DYAZIDE 37.5-25 MG CAPS 1 qd TRIAMTERENE-HC TZ 25951157500 No Longer Active Hope Benavidez MD PhD Active PROZAC 20 MG CAPS 1 q d FLUOXETINE HCL 90698 258452 No Longer Active Hope Benavidez MD PhD Active SIMVASTATIN 40 MG TABS 1 qd SIMVASTATIN 004 74596470 No Longer Active Adam Yates MD Active MELOXICAM 15 MG TABS 1 qd MELOXICAM 7118867 4904 No Longer Active Adam Yates MD Active IMODIUM A-D 2 MG TABS 2 onset at diarrhea and prn. LOPERAMIDE HCL 46303365094 Active Hope Benavidez MD PhD Active EXCEDRIN EXTRA STRENGTH 250-250-65 MG TABS 1-2 q6h PRN headache 201 04/16/21 [id number] 88906254295 Active Hope Benavidez MD PhD Active FLAGYL 500 MG TABS 1 qid METRONIDAZOLE 51964 592561 No Longer Active Adam Yates MD Active LEVAQUIN 750 MG TABS 1 qd LEVOFLOXACIN 5486 7479884 No Longer Active Adam Yates MD Active ADULT ASPIRIN LOW STRENGTH 81 MG TBDP 1 qd A SPIRIN 30207558311 Active Hope Benavidez MD PhD Active LEVAQUIN 750 MG TABS 1 qd LEVAQUIN 750 MG T ABS 881165 LEVOFLOXACIN Inactive FLAGYL 500 MG TABS 1 qid FLAGYL 500 MG TABS 670784 METRONIDAZOLE Inactive MELOXICAM 15 MG TABS 1 qd MELOXICAM 15 MG T ABS 967577 MELOXICAM Inactive SIMVASTATIN 40 MG TABS 1 qd SIMVASTATIN 40 MG TABS 131032 SIMVASTATIN Inactive PROZAC 20 MG CAPS 1 q d PROZAC 20 MG CAPS 31 0385 FLUOXETINE HCL Inactive DYAZIDE 37.5-25 MG CAPS 1 qd DYAZIDE 37.5 -25 MG CAPS 310686 TRIAMTERENE-HCTZ Inactive INNOPRAN XL 120 MG [id number] Take one by mouth daily 2 INNOPRAN XL 120 MG [id number] PROPRANOLOL HCL SR BEADS Inactive PROMETHAZINE HCL 25 MG TABS 1 Q. 4 hr. PRN PROMETHAZINE HCL 25 MG TABS 623353 PROMETHAZINE HCL Inactive POTASSIUM CHLORIDE 20 MEQ PACK by mouth twice a day prn POTASSIUM CHLORIDE 20 MEQ PACK 7285900 POTASSIUM CHLORIDE Inactive PHENADOZ 25 MG SUPP 1 every 4 hrs. PRN PHENADOZ 2 5 MG SUPP 505401 PROMETHAZINE HCL Inactive ZOFRAN 8 MG TABS 1 tab by mouth every 12 hours prn 201 05/16/09 ZOFRAN 8 MG TABS 892533 ONDANSETRON HCL Inactive OMEPRAZOLE 20 MG CPDR 1 tablet by mouth daily for GERD OMEPRAZOLE 20 MG CPDR 721796 OMEPRAZOLE Inactive CYCLOBENZAPRINE HCL 10 MG TABS 1 tablet by mouth three times daily as needed for headaches CYCLOBENZAPRINE HCL 10 MG TABS 172595 CYCLOBENZAPRINE HCL Inactive VITAMIN D3 4000 IU 1 tab 3 times daily VITAMIN D3 4000 IU Inactive PROPRANOLOL HCL 80 MG TABS 1 tab tue. and thur. 04/10 PROPRANOLOL HCL 80 MG TABS 207738 PROPRANOLOL HCL Inactive CYANOCOBALAMIN 1000 MCG/ML INJ SOLN 1 injection every 2 weeks 20 20/01/03 CYANOCOBALAMIN 1000 MCG/ML INJ SOLN 294966 CYANOCOBALAM IN Inactive MAGNESIUM GLUCONATE 250 MG TABS 1 tab tid 4 MAGNESIUM GLUCONATE 250 MG TABS 739880 MAGNESIUM GLUCONATE Inactive LOMOTIL 2.5-0.025 MG TABS 1 tab by mouth prn 4 LOMOTIL 2.5- 0.025 MG TABS 1376575 DIPHENOXYLATE-ATROPINE Inactive FLORANEX PACK 1 pack three times daily, for bowel health FLORANEX PACK LACTOBACILLUS Inactive IRON 325 (65 FE) MG TABS 1 every other day IRON 325 (65 FE) MG TABS 230901 FERROUS SULFATE Inactive FLAGYL 500 MG TABS 1 pill by mouth three times daily, for diarrh ea FLAGYL 500 MG TABS 696502 METRONIDAZOLE Inactive BACTRIM DS 800-160 MG TABS 1 pill by mouth twice daily, for UTI BACTRIM DS 800-160 MG TABS 236735 SULFAMETHOXAZOLE-TRIM ETHOPRIM Inactive Advance Directives Directive Description [...] 11 .0-15.0 platelet count 157 THOUSAND/UL 10*3/mm3 251-957 7822/04/20 mean platelet volume 8.9 fL 7.5-12.5 Lab Report: CBC W/DIFF, Comp. Metabolic Panel, Thyroid Stimulating Hormo ... - Chemistry sodium, serum 139 mmol/L 869-825 1195/10/20 carbon dioxide, venous blood 32.2 mmol/L 21.0-32 [...] - Chemi stry cholesterol, serum 200 mg/dL 179-033 4763/11/22 triglyceride, serum, fasting 129 mg/dL 30-200 HDL cholesterol, serum 56 mg/dL 32-96 LDL cholesterol, serum 118 mg/dL 0-130 calcium, serum 9.0 mg/dL 8.5-10.1 Lab Report: MicroAlb Random w/creat/6517 - Urinalysis microalbumin/total urine volume 8 mg/L Units converted. See lab report for original value. microalbumin/creatinine ratio, urine 15 MCG/MG CREAT mg/L <30 Encounters Code Encounter Date Provider Facility CPT-50022 Level 3 Est. Patient 17:54:48 CDT Kylie boyd [facility] [place] CPT-49935 Level 3 Est. Patient 16:26:30 CDT Kina blackmon [facility] CPT-06868 Level 3 New Patient 16:22:01 EDUCATION ANALYST Adam Yates MD [facility] CPT-12640 Level 4 Est. Patient 17:00:48 CDT Kylie Lund [facility] CPT-71936 Level 3 Est. Patient 13:15:54 CDT Kylie Lund [facility] CPT-37589 Level 3 Est. Patient 09:10:11 CDT Kylie Kevon [facility] CPT-69813 Level 4 Est. Patient 12:08:30 EDUCATION ANALYST Hope cohn MD [facility] CPT-14289 Level 4 Est. Patient 19:08:42 EDUCATION ANALYST Hope cohn MD [facility] CPT-44369 Level 4 Est. Patient 20:04:51 CDT Hope cohn MD [facility] CPT-46665 Level 3 New Patient 01:46:11 EDUCATION ANALYST Hope landers MD PhD [facility] Procedures Code Procedure Name Date Entry Date Standard Desc ription CPT-G0439 [facility] Annual Wellness Exam 17:54:53 CDT CPT-29554 Foot, left, comp min 3V - XRAY USE ONLY 12:22:49 CDT CPT-G0009 Administration of Pneumococcal Vaccine 3 12:18:00 CDT CPT-15542 Pneumovax 23 Injection Injectable 25 MCG /0.5ML 12:18:00 CDT CPT-J0897 Prolia 60 mg 14:14:16 EDUCATION ANALYST CPT-86102 Abx/Therapy Injection 14:14:15 EDUCATION ANALYST CPT-38057 Lipid - LAB USE ONLY 10:01:52 EDUCATION ANALYST 2 CPT-43885 Calcium - LAB USE ONLY 10:01:51 EDUCATION ANALYST CPT-26532 Venipuncture Draw Fee 10:01:51 EDUCATION ANALYST CPT-LR Lesion Removal 16:22:01 EDUCATION ANALYST CPT-02167 TSH - LAB USE ONLY 14:26:02 CDT CPT-36770 CMP - LAB USE ONLY 14:26:01 CDT CPT-60300 CBC with Diff - LAB USE ONLY 14:26:01 CDT 2 CPT-06718 Venipuncture Draw Fee 14:26:01 CDT CPT-08940 First Vx - Ix admin for Medicare patients 13:27:08 CDT CPT-46672 Fluzone High-Dose Intramuscular Suspension 11/26 13:27:08 CDT CPT-G0438 Initial Annual Wellness Exam 14:19:57 CD T CPT-G0009 Administration of Pneumococcal Vaccine 9 11:36:25 CDT CPT-02315 Prevnar 13 Intramuscular Suspension 1 1:36:25 CDT CPT-86249 Prevnar 13 Intramuscular Suspension 1 0:40:58 CDT CPT-J0897 Prolia 60 mg 10:37:16 CDT CPT-02707 Abx/Therapy Injection 10:37:16 CDT CPT-J0897 Prolia 60 mg 16:09:34 EDUCATION ANALYST CPT-J0897 Prolia 60 mg 11:10:35 EDUCATION ANALYST CPT-43602 Abx/Therapy Injection 11:10:35 EDUCATION ANALYST CPT-000 Give Appropriate Flu Vaccine 17:01:15 EDUCATION ANALYST 2 CPT-91160 Fluzone High Dose (65+) 15:03:08 EDUCATION ANALYST 02/15 CPT-04707 Immunization Single Admin 15:03:08 EDUCATION ANALYST 2014 CPT-OV Office Visit 15:58:06 CDT CPT-J0897 Prolia 60 mg 08:45:38 CDT CPT-18158 Abx/Therapy Injection 08:45:38 CDT CPT-J3420 Vitamin B12 1000mcg (Cyanocobalamin) 09:26:20 EDUCATION ANALYST CPT-03555 Abx/Therapy Injection 09:26:20 EDUCATION ANALYST CPT-J3420 Vitamin B12 1000mcg (Cyanocobalamin) 09:44:40 EDUCATION ANALYST CPT-20882 Abx/Therapy Injection 09:44:40 EDUCATION ANALYST CPT-J3420 Vitamin B12 1000mcg (Cyanocobalamin) 09:15:54 EDUCATION ANALYST CPT-69445 Abx/Therapy Injection 09:15:54 EDUCATION ANALYST CPT-J3420 Vitamin B12 1000mcg (Cyanocobalamin) 09:46:44 EDUCATION ANALYST CPT-80353 Abx/Therapy Injection 09:46:44 EDUCATION ANALYST CPT-J3420 Vitamin B12 1000mcg (Cyanocobalamin) 09:47:34 EDUCATION ANALYST CPT-41668 Abx/Therapy Injection 09:47:34 EDUCATION ANALYST CPT-J3420 Vitamin B12 1000mcg (Cyanocobalamin) 14:35:50 EDUCATION ANALYST CPT-J3420 Vitamin B12 1000mcg (Cyanocobalamin) 09:25:05 EDUCATION ANALYST CPT-59765 Abx/Therapy Injection 09:25:05 EDUCATION ANALYST CPT-G0008 Administration of Influenza Virus Vaccine 13:36:47 CDT CPT-41930 Fluzone High-Dose Intramuscular Suspension 11/15 13:36:47 CDT CPT-J0897 Prolia 60 mg 08:50:41 CDT CPT-35683 Abx/Therapy Injection 08:50:41 CDT CPT-38647 Bone Density 12:06:12 CDT CPT-07079 Bone Density 08:54:40 CDT CPT-OV Office Visit 15:37:02 CDT CPT-72488 Postop F/U Visit 15:47:49 CDT CPT-87045 Postop F/U Visit 15:21:02 CDT CPT-[facility] Transitional Care Mgmt-High 07:52:27 CDT 20 20/06/01 CPT-80664 Venipuncture Draw Fee 13:51:18 CDT CPT-83580 Venipuncture Draw Fee 10:14:55 EDUCATION ANALYST CPT-50877 Venipuncture Draw Fee 13:39:45 EDUCATION ANALYST CPT-OV Office Visit 15:11:22 EDUCATION ANALYST CPT-00490 Venipuncture Draw Fee 09:20:49 EDUCATION ANALYST CPT-32707 Venipuncture Draw Fee 16:52:15 EDUCATION ANALYST CPT-65091 Venipuncture Draw Fee 10:37:24 EDUCATION ANALYST CPT-27310 Venipuncture Draw Fee 08:21:21 EDUCATION ANALYST CPT-60094 Venipuncture Draw Fee 08:30:20 EDUCATION ANALYST CPT-36884 Venipuncture Draw Fee 14:53:21 EDUCATION ANALYST CPT-12205 Venipuncture Draw Fee 09:40:56 EDUCATION ANALYST CPT-50853 Venipuncture Draw Fee 10:30:47 EDUCATION ANALYST CPT-63400 Venipuncture Draw Fee 10:46:17 EDUCATION ANALYST CPT-24732 Venipuncture Draw Fee 11:12:45 EDUCATION ANALYST CPT-12491 Venipuncture Draw Fee 09:53:33 EDUCATION ANALYST CPT-92479 Venipuncture Draw Fee 11:53:51 EDUCATION ANALYST CPT-49874 Venipuncture Draw Fee 10:33:50 EDUCATION ANALYST CPT-51380 Venipuncture Draw Fee 10:05:01 EDUCATION ANALYST CPT-43706 Venipuncture Draw Fee 14:32:52 EDUCATION ANALYST CPT-44857 Venipuncture Draw Fee 09:46:13 EDUCATION ANALYST CPT-90295 Venipuncture Draw Fee 11:34:27 EDUCATION ANALYST CPT-91331 Venipuncture Draw Fee 13:17:16 EDUCATION ANALYST CPT-53284 Venipuncture Draw Fee 12:05:39 CDT CPT-12207 Venipuncture Draw Fee 12:49:12 CDT CPT-30131 Venipuncture Draw Fee 12:37:18 CDT CPT-92874 Venipuncture Draw Fee 10:57:11 CDT CPT-68480 Venipuncture Draw Fee 13:47:40 CDT CPT-62688 Venipuncture Draw Fee 10:02:17 CDT CPT-54550 TB Tubersol 17:32:32 CDT CPT-OV Office Visit 16:21:53 CDT CPT-OV Office Visit 15:49:22 CDT CPT-OV Office Visit 17:16:31 CDT CPT-OV Office Visit 10:43:31 CDT
--- OUTSIDE RECORDS SUMMARY | 2019-02-09 12:30 | XMS REPORT | Clinical Summary ---
Author Author Renaldo, Florecita Munoz Organization [facility] [employer] Address Unknown Phone Unavailable Allergies, Adverse Reactions, [...] PhD Hyperpotassemia GERD 530.81 Resolved Kylie Yokum CONFERENCE PLANNING MANAGER Esophageal reflux Health maintenance exam V70.0 Resolved Adolfo Yaets MD Routine general medical examination at a health care facility Anemia 285.9 Resolved Kylie Holt CONFERENCE PLANNING MANAGER Anemia, unspecified Personal history of malignant [...] Sebaceous cyst, scalp 706.2 Resolved Kylie Holt CONFERENCE PLANNING MANAGER Sebaceous cyst Cervical lymphadenopathy, anterior, left 785.6 Resolv ed Kylie Holt CONFERENCE PLANNING MANAGER Enlargement of lymph nodes Need for prophylactic vaccination and inoculation against in fluenza V04.81 Resolved Adam Yates MD Need for prophylactic vaccination and inoculation against influenza Preventive health care V70.0 Active Kylie Holt CONFERENCE PLANNING MANAGER Routine general medical examination at a health care facility Thyroid nodule, left 241.0 Active Kylie Holt A PRN Nontoxic uninodular goiter Screening mammogram V76.12 Active Kylie Holt AP RN Other screening mammogram Mandy 706.2 Active Adam Yates MD Sebaceous cyst ABDOMINAL PAIN, RIGHT LOWER QUADRANT ICD-789.03 Inactive Kina Joshua CONFERENCE PLANNING MANAGER ADENOCARCINOMA, COLON, 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 Dick Yates MD ABDOMINAL PAIN, GENERALIZED ICD-789.07 Inactive Hope Benavidez MD PhD FEVER UNSPECIFIED ICD-780.60 Inactive Hope cohn MD PhD UNSPECIFIED VENOUS INSUFFICIENCY ICD-459.81 [place] ctive Adam Yaets MD ADENOCARCINOMA, 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 Inac tive Hope Benavidez MD PhD Hyperkalemia ICD-276.7 Inactive Hope Benavidez MD PhD GERD ICD-530.81 Inactive Kylie Holt CONFERENCE PLANNING MANAGER 2015 Health maintenance exam ICD-V70.0 Bam Yates MD Anemia ICD-285.9 Inactive Kylie Holt CONFERENCE PLANNING MANAGER 07/24 Weakness ICD-780.79 Inactive Hope Benavidez [...] Sebaceous cyst, scalp ICD-706.2 Inactive Tracy Holt CONFERENCE PLANNING MANAGER Cervical lymphadenopathy, anterior, left ICD-785.6 Inactive Kylie Holt CONFERENCE PLANNING MANAGER Need for prophylactic vaccination and inoculation against in fluenza ICD-V04.81 Bam Yates MD Medication List Medication Instructions Start Date Stop Date Generic Name NDC Status Provider Patient Instruction VITAMIN D3 2000 UNIT ORAL CAPS Melaleuca-One daily CHOLECALCIFEROL 41234240625 Active Kylie Yokum CONFERENCE PLANNING MANAGER Active PROBIOTIC DAILY ORAL CAPS Take one daily PROBIOTIC PRODUCT 64298769891 Active Kylie Holt CONFERENCE PLANNING MANAGER Active IRON 325 (65 FE) MG TABS 1 every other day FERR OUS SULFATE 26166518420 No Longer Active Kylie Holt CONFERENCE PLANNING MANAGER Active FLORANEX PACK 1 pack three times daily, for bowel health LACTOBACILLUS 84481845843 No Longer Active Kylie Holt CONFERENCE PLANNING MANAGER Active LOMOTIL 2.5-0.025 MG TABS 1 tab by mouth prn 4 DIPHENOXYLATE-ATROPINE 30455803247 No Longer Active Kylie Lundum CONFERENCE PLANNING MANAGER Active MAGNESIUM GLUCONATE 250 MG TABS 1 tab tid 4 MAGNESIUM GLUCONATE 27564246316 No Longer Active Kylie Holt CONFERENCE PLANNING MANAGER Active CYANOCOBALAMIN 1000 MCG/ML INJ SOLN 1 injection every 2 weeks 20 20/01/03 CYANOCOBALAMIN 41710830757 No Longer Active Kylie Holt CONFERENCE PLANNING MANAGER Active ATENOLOL 25 MG ORAL TABS 1/2 pill by mouth daily, for headac hes, blood pressure ATENOLOL 99309161096 Active Kylie Holt CONFERENCE PLANNING MANAGER Active PROPRANOLOL HCL 80 MG TABS 1 tab tue. and thur. 04/10 PROPRANOLOL HCL 95409473997 No Longer Active Hope Benavidez MD PhD A ctive VITAMIN D3 4000 IU 1 tab 3 times daily VITAMIN D3 4000 IU No Longer Active Hope Benavidez MD PhD Active BACTRIM DS 800-160 MG TABS 1 pill by mouth twice daily, for UTI SULFAMETHOXAZOLE-TRIMETHOPRIM 58115282725 No Longer Active A attila Benavidez MD PhD Active PROLIA 60 MG/ML SOLN 1 shot every 6 months for osteoprosis DENOSUMAB 11730470294 Active Hope Benavidez MD PhD Active CALCIUM + D + K 750-500-40 MG-UNT-MCG TABS 1 tab by mouth tw ice daily CALCIUM-VITAMIN D-VITAMIN K 75274312961 Active Hope landers MD PhD Active DAILY VALUE MULTIVITAMIN TABS 1 tab by mouth twice daily MULTIPLE VITAMIN 90250358884 Active Hope Benavidez MD PhD Active FISH OIL 306 MG CAPS 1 tab by mouth three times daily OMEGA-3 FATTY ACIDS 78561875871 Active Hope Benavidez MD PhD Active LUTEIN 10 MG TABS 1 tab daily LUTEIN 87700188956 Act cash Hope Benavidez MD PhD Active TRIAMTERENE-HCTZ 37.5-25 MG TABS 1 tab by mouth daily TRIAMTERENE-HCTZ 25103124957 Active Kylieshubham Holt CONFERENCE PLANNING MANAGER Active CYCLOBENZAPRINE HCL 10 MG TABS 1 tablet by mouth three times daily as needed for headaches CYCLOBENZAPRINE HCL 86472540234 No Longe r Active Adam Yates MD Active OMEPRAZOLE 20 MG CPDR 1 tablet by mouth daily for GERD OMEPRAZOLE 16325927649 No Longer Active Adam Yates MD A ctive ZOFRAN 8 MG TABS 1 tab by mouth every 12 hours prn 201 05/16/09 ONDANSETRON HCL 21757188653 No Longer Active Adam Yates MD Active PHENADOZ 25 MG SUPP 1 every 4 hrs. PRN PROMETHA ZINE HCL 86396624391 No Longer Active Adam Yates MD Active POTASSIUM CHLORIDE 20 MEQ PACK by mouth twice a day prn POTASSIUM CHLORIDE 14537914945 No Longer Active Adam Yates MD Active PROMETHAZINE HCL 25 MG TABS 1 Q. 4 hr. PRN PROM ETHAZINE HCL 65793192020 No Longer Active Adam Yates MD Active INNOPRAN XL 120 MG [id number] Take one by mouth daily 2 PROPRANOLOL HCL SR BEADS 05597653955 No Longer Active Adam Yates MD A ctive FLAGYL 500 MG TABS 1 pill by mouth three times daily, for diarrh ea METRONIDAZOLE 90607211138 No Longer Active Hope Benavidez MD PhD Active DYAZIDE 37.5-25 MG CAPS 1 qd TRIAMTERENE-HC TZ 73954146294 No Longer Active Hope Benavidez MD PhD Active PROZAC 20 MG CAPS 1 q d FLUOXETINE HCL 43928 488891 No Longer Active Hope Benavidez MD PhD Active SIMVASTATIN 40 MG TABS 1 qd SIMVASTATIN 004 21992982 No Longer Active Adam Yates MD Active MELOXICAM 15 MG TABS 1 qd MELOXICAM 7759760 3306 No Longer Active Adam Yates MD Active IMODIUM A-D 2 MG TABS 2 onset at diarrhea and prn. LOPERAMIDE HCL 25581806209 Active Hope Benavidez MD PhD Active EXCEDRIN EXTRA STRENGTH 250-250-65 MG TABS 1-2 q6h PRN headache 201 04/16/21 [id number] 08950689429 Active Hope Benavidez MD PhD Active FLAGYL 500 MG TABS 1 qid METRONIDAZOLE 29401 569079 No Longer Active Adam Yates MD Active LEVAQUIN 750 MG TABS 1 qd LEVOFLOXACIN 5486 5885429 No Longer Active Adam Yates MD Active ADULT ASPIRIN LOW STRENGTH 81 MG TBDP 1 qd A SPIRIN 58775427641 Active Hope Benavidez MD PhD Active LEVAQUIN 750 MG TABS 1 qd LEVAQUIN 750 MG T ABS 475913 LEVOFLOXACIN Inactive FLAGYL 500 MG TABS 1 qid FLAGYL 500 MG TABS 332352 METRONIDAZOLE Inactive MELOXICAM 15 MG TABS 1 qd MELOXICAM 15 MG T ABS 368702 MELOXICAM Inactive SIMVASTATIN 40 MG TABS 1 qd SIMVASTATIN 40 MG TABS 053271 SIMVASTATIN Inactive PROZAC 20 MG CAPS 1 q d PROZAC 20 MG CAPS 31 0385 FLUOXETINE HCL Inactive DYAZIDE 37.5-25 MG CAPS 1 qd DYAZIDE 37.5 -25 MG CAPS 563945 TRIAMTERENE-HCTZ Inactive INNOPRAN XL 120 MG [id number] Take one by mouth daily 2 INNOPRAN XL 120 MG [id number] PROPRANOLOL HCL SR BEADS Inactive PROMETHAZINE HCL 25 MG TABS 1 Q. 4 hr. PRN PROMETHAZINE HCL 25 MG TABS 544728 PROMETHAZINE HCL Inactive POTASSIUM CHLORIDE 20 MEQ PACK by mouth twice a day prn POTASSIUM CHLORIDE 20 MEQ PACK 571872 POTASSIUM CHLORIDE Inactive PHENADOZ 25 MG SUPP 1 every 4 hrs. PRN PHENADOZ 2 5 MG SUPP 891391 PROMETHAZINE HCL Inactive ZOFRAN 8 MG TABS 1 tab by mouth every 12 hours prn 201 05/16/09 ZOFRAN 8 MG TABS 080126 ONDANSETRON HCL Inactive OMEPRAZOLE 20 MG CPDR 1 tablet by mouth daily for GERD OMEPRAZOLE 20 MG CPDR 161492 OMEPRAZOLE Inactive CYCLOBENZAPRINE HCL 10 MG TABS 1 tablet by mouth three times daily as needed for headaches CYCLOBENZAPRINE HCL 10 MG TABS 272329 CYCLOBENZAPRINE HCL Inactive VITAMIN D3 4000 IU 1 tab 3 times daily VITAMIN D3 4000 IU Inactive PROPRANOLOL HCL 80 MG TABS 1 tab tue. and thur. 04/10 PROPRANOLOL HCL 80 MG TABS 774977 PROPRANOLOL HCL Inactive CYANOCOBALAMIN 1000 MCG/ML INJ SOLN 1 injection every 2 weeks 20 20/01/03 CYANOCOBALAMIN 1000 MCG/ML INJ SOLN 416471 CYANOCOBALAM IN Inactive MAGNESIUM GLUCONATE 250 MG TABS 1 tab tid 4 MAGNESIUM GLUCONATE 250 MG TABS 096736 MAGNESIUM GLUCONATE Inactive LOMOTIL 2.5-0.025 MG TABS 1 tab by mouth prn 4 LOMOTIL 2.5- 0.025 MG TABS 8766530 DIPHENOXYLATE-ATROPINE Inactive FLORANEX PACK 1 pack three times daily, for bowel health FLORANEX PACK LACTOBACILLUS Inactive IRON 325 (65 FE) MG TABS 1 every other day IRON 325 (65 FE) MG TABS 540352 FERROUS SULFATE Inactive FLAGYL 500 MG TABS 1 pill by mouth three times daily, for diarrh ea FLAGYL 500 MG TABS 433023 METRONIDAZOLE Inactive BACTRIM DS 800-160 MG TABS 1 pill by mouth twice daily, for UTI BACTRIM DS 800-160 MG TABS 046340 SULFAMETHOXAZOLE-TRIM ETHOPRIM Inactive Advance Directives Directive Description [...] Panel - Chemistry sodium, serum 142 mmol/L 191-631 3155/04/20 carbon dioxide, venous blood 34.7 mmol/L 21.0-32 [...] ... - Chemistry sodium, serum 139 mmol/L 963-762 2351/10/20 carbon dioxide, venous blood 32.2 mmol/L 21.0-32 [...] - Chemi stry cholesterol, serum 200 mg/dL 640-882 5927/11/22 triglyceride, serum, fasting 129 mg/dL 30-200 HDL cholesterol, serum 56 mg/dL 32-96 LDL cholesterol, serum 118 mg/dL 0-130 calcium, serum 9.0 mg/dL 8.5-10.1 Encounters Code Encounter Date Provider Facility CPT-73897 Level 3 New Patient 16:22:01 CUSTOMER RELATIONS ASSISTANT Adam Yates MD [facility] CPT-99783 Level 4 Est. Patient 17:00:48 CDT Kylie Lund [facility] CPT-23054 Level 3 Est. Patient 13:15:54 CDT Kylie Lund [facility] [place] CPT-26939 Level 3 Est. Patient 09:10:11 CDT Kylie boyd CONFERENCE PLANNING MANAGER [facility] CPT-97703 Level 4 Est. Patient 12:08:30 CUSTOMER RELATIONS ASSISTANT Hope cohn MD PhD [facility] CPT-12276 Level 4 Est. Patient 19:08:42 CUSTOMER RELATIONS ASSISTANT Hope cohn MD PhD [facility] CPT-05638 Level 4 Est. Patient 20:04:51 CDT Hope cohn MD PhD [facility] CPT-77430 Level 3 New Patient 01:46:11 CUSTOMER RELATIONS ASSISTANT Hope landers MD PhD [facility] Procedures Code Procedure Name Date Entry Date Standard Desc ription CPT-64630 Lipid - LAB USE ONLY 10:01:52 CUSTOMER RELATIONS ASSISTANT 2 CPT-39029 Calcium - LAB USE ONLY 10:01:51 CUSTOMER RELATIONS ASSISTANT CPT-25320 Venipuncture Draw Fee 10:01:51 CUSTOMER RELATIONS ASSISTANT CPT-LR Lesion Removal 16:22:01 CUSTOMER RELATIONS ASSISTANT CPT-71082 TSH - LAB USE ONLY 14:26:02 CDT CPT-06483 CMP - LAB USE ONLY 14:26:01 CDT CPT-35447 CBC with Diff - LAB USE ONLY 14:26:01 CDT 2 CPT-49036 Venipuncture Draw Fee 14:26:01 CDT CPT-99368 First Vx - Ix admin for Medicare patients 13:27:08 CDT CPT-62799 Fluzone High-Dose Intramuscular Suspension 11/26 13:27:08 CDT CPT-G0438 Initial Annual Wellness Exam 14:19:57 CD T CPT-G0009 Administration of Pneumococcal Vaccine 9 11:36:25 CDT CPT-34819 Prevnar 13 Intramuscular Suspension 1 1:36:25 CDT CPT-93099 Prevnar 13 Intramuscular Suspension 1 0:40:58 CDT CPT-J0897 Prolia 60 mg 10:37:16 CDT CPT-31559 Abx/Therapy Injection 10:37:16 CDT CPT-J0897 Prolia 60 mg 16:09:34 CUSTOMER RELATIONS ASSISTANT CPT-J0897 Prolia 60 mg 11:10:35 CUSTOMER RELATIONS ASSISTANT CPT-89496 Abx/Therapy Injection 11:10:35 CUSTOMER RELATIONS ASSISTANT CPT-000 Give Appropriate Flu Vaccine 17:01:15 CUSTOMER RELATIONS ASSISTANT 2 CPT-15865 Fluzone High Dose (65+) 15:03:08 CUSTOMER RELATIONS ASSISTANT 02/15 CPT-96700 Immunization Single Admin 15:03:08 CUSTOMER RELATIONS ASSISTANT 2014 CPT-OV Office Visit 15:58:06 CDT CPT-J0897 Prolia 60 mg 08:45:38 CDT CPT-68024 Abx/Therapy Injection 08:45:38 CDT CPT-J3420 Vitamin B12 1000mcg (Cyanocobalamin) 09:26:20 CUSTOMER RELATIONS ASSISTANT CPT-54083 Abx/Therapy Injection 09:26:20 CUSTOMER RELATIONS ASSISTANT CPT-J3420 Vitamin B12 1000mcg (Cyanocobalamin) 09:44:40 CUSTOMER RELATIONS ASSISTANT CPT-30874 Abx/Therapy Injection 09:44:40 CUSTOMER RELATIONS ASSISTANT CPT-J3420 Vitamin B12 1000mcg (Cyanocobalamin) 09:15:54 CUSTOMER RELATIONS ASSISTANT CPT-45967 Abx/Therapy Injection 09:15:54 CUSTOMER RELATIONS ASSISTANT CPT-J3420 Vitamin B12 1000mcg (Cyanocobalamin) 09:46:44 CUSTOMER RELATIONS ASSISTANT CPT-80384 Abx/Therapy Injection 09:46:44 CUSTOMER RELATIONS ASSISTANT CPT-J3420 Vitamin B12 1000mcg (Cyanocobalamin) 09:47:34 CUSTOMER RELATIONS ASSISTANT CPT-09175 Abx/Therapy Injection 09:47:34 CUSTOMER RELATIONS ASSISTANT CPT-J3420 Vitamin B12 1000mcg (Cyanocobalamin) 14:35:50 CUSTOMER RELATIONS ASSISTANT CPT-J3420 Vitamin B12 1000mcg (Cyanocobalamin) 09:25:05 CUSTOMER RELATIONS ASSISTANT CPT-04331 Abx/Therapy Injection 09:25:05 CUSTOMER RELATIONS ASSISTANT CPT-G0008 Administration of Influenza Virus Vaccine 13:36:47 CDT CPT-74223 Fluzone High-Dose Intramuscular Suspension 11/15 13:36:47 CDT CPT-J0897 Prolia 60 mg 08:50:41 CDT CPT-64680 Abx/Therapy Injection 08:50:41 CDT CPT-09406 Bone Density 12:06:12 CDT CPT-15543 Bone Density 08:54:40 CDT CPT-OV Office Visit 15:37:02 CDT CPT-69633 Postop F/U Visit 15:47:49 CDT CPT-10670 Postop F/U Visit 15:21:02 CDT [facility]PT-[facility] Transitional Care Mgmt-High 07:52:27 CDT 20 20/06/01 CPT-15694 Venipuncture Draw Fee 13:51:18 CDT CPT-27797 Venipuncture Draw Fee 10:14:55 CUSTOMER RELATIONS ASSISTANT CPT-13582 Venipuncture Draw Fee 13:39:45 CUSTOMER RELATIONS ASSISTANT CPT-OV Office Visit 15:11:22 CUSTOMER RELATIONS ASSISTANT CPT-19245 Venipuncture Draw Fee 09:20:49 CUSTOMER RELATIONS ASSISTANT CPT-54042 Venipuncture Draw Fee 16:52:15 CUSTOMER RELATIONS ASSISTANT CPT-08324 Venipuncture Draw Fee 10:37:24 CUSTOMER RELATIONS ASSISTANT CPT-89823 Venipuncture Draw Fee 08:21:21 CUSTOMER RELATIONS ASSISTANT CPT-88690 Venipuncture Draw Fee 08:30:20 CUSTOMER RELATIONS ASSISTANT CPT-69995 Venipuncture Draw Fee 14:53:21 CUSTOMER RELATIONS ASSISTANT CPT-44130 Venipuncture Draw Fee 09:40:56 CUSTOMER RELATIONS ASSISTANT CPT-48791 Venipuncture Draw Fee 10:30:47 CUSTOMER RELATIONS ASSISTANT CPT-51219 Venipuncture Draw Fee 10:46:17 CUSTOMER RELATIONS ASSISTANT CPT-55736 Venipuncture Draw Fee 11:12:45 CUSTOMER RELATIONS ASSISTANT CPT-51613 Venipuncture Draw Fee 09:53:33 CUSTOMER RELATIONS ASSISTANT CPT-20559 Venipuncture Draw Fee 11:53:51 CUSTOMER RELATIONS ASSISTANT CPT-57012 Venipuncture Draw Fee 10:33:50 CUSTOMER RELATIONS ASSISTANT CPT-64558 Venipuncture Draw Fee 10:05:01 CUSTOMER RELATIONS ASSISTANT CPT-16692 Venipuncture Draw Fee 14:32:52 CUSTOMER RELATIONS ASSISTANT CPT-35286 Venipuncture Draw Fee 09:46:13 CUSTOMER RELATIONS ASSISTANT CPT-76588 Venipuncture Draw Fee 11:34:27 CUSTOMER RELATIONS ASSISTANT CPT-23145 Venipuncture Draw Fee 13:17:16 CUSTOMER RELATIONS ASSISTANT CPT-93579 Venipuncture Draw Fee 12:05:39 CDT CPT-95540 Venipuncture Draw Fee 12:49:12 CDT CPT-92315 Venipuncture Draw Fee 12:37:18 CDT CPT-95886 Venipuncture Draw Fee 10:57:11 CDT CPT-57699 Venipuncture Draw Fee 13:47:40 CDT CPT-61202 Venipuncture Draw Fee 10:02:17 CDT CPT-63936 TB Tubersol 17:32:32 CDT CPT-OV Office Visit 16:21:53 CDT CPT-OV Office Visit 15:49:22 CDT CPT-OV Office Visit 17:16:31 CDT CPT-OV Office Visit 10:43:31 CDT
--- OUTSIDE RECORDS SUMMARY | 2019-02-09 12:30 | XMS REPORT | Clinical Summary ---
Author Author Renaldo, Florecita Munoz Organization [facility] [employer] Address Unknown Phone Unavailable Allergies, Adverse Reactions, [...] PhD Hyperpotassemia GERD 530.81 Resolved Kylie Yokum TUBE INSPECTOR Esophageal reflux Health maintenance exam V70.0 Resolved Adolfo Yates MD Routine general medical examination at a health care facility Anemia 285.9 Resolved Kylie Holt TUBE INSPECTOR Anemia, unspecified Personal history of malignant neoplasm [...] Sebaceous cyst, scalp 706.2 Resolved Kylie Holt TUBE INSPECTOR Sebaceous cyst Cervical lymphadenopathy, anterior, left 785.6 Resolv ed Kylie Holt TUBE INSPECTOR Enlargement of lymph nodes Need for prophylactic vaccination and inoculation against in fluenza V04.81 Resolved Adam Yates MD Need for prophylactic vaccination and inoculation against influenza Preventive health care V70.0 Active Kylie Holt TUBE INSPECTOR Routine general medical examination at a health care facility Thyroid nodule, left 241.0 Active Kylie Gonzalez PRN Nontoxic uninodular goiter Screening mammogram V76.12 Active Kylie Holt AP RN Other screening mammogram Mandy 706.2 Active Adam Yates MD Sebaceous cyst ADENOCARCINOMA, COLON, 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 Dick Yates MD ABDOMINAL PAIN, GENERALIZED ICD-789.07 Inactive Hope Benavidez MD PhD FEVER UNSPECIFIED ICD-780.60 Inactive Hope cohn MD PhD UNSPECIFIED VENOUS INSUFFICIENCY ICD-459.81 Wiley ctive Adam Yates MD ADENOCARCINOMA, 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 Inac tive Hope Benavidez MD PhD Hyperkalemia ICD-276.7 Inactive Hope Benavidez MD PhD GERD ICD-530.81 Inactive Kylie Holt APRN 2015 Health maintenance exam ICD-V70.0 Inactive Adolfo Yates MD Anemia ICD-285.9 Inactive Kylie Holt TUBE INSPECTOR 07/24 Weakness ICD-780.79 Inactive Hope Benavidez MD P hD Aftercare following surgery of the teeth,oral cavity a nd digestive system, NEC ICD-V58.75 Inactive Adam Yates MD ABDOMINAL PAIN, RIGHT LOWER QUADRANT ICD-789.03 Inactive Kina Joshua TUBE INSPECTOR Asymptomatic postmenopausal status (age-related) (natural) I CD-V49.81 Inactive Hope Benavidez MD PhD Diarrhea, functional ICD-564.5 Inactive Selena Yates MD Dysuria ICD-788.1 Inactive Hope Benavidez MD PhD 201 05/19/01 Adenocarcinoma, ascending colon ICD-153.6 Inac tive Adam Yates MD Sebaceous cyst, scalp ICD-706.2 Inactive Tracy Holt TUBE INSPECTOR Cervical lymphadenopathy, anterior, left ICD-785.6 Inactive Kylie Escalonapari TUBE INSPECTOR Need for prophylactic vaccination and inoculation against in fluenza ICD-V04.81 Inactive Adam Yates MD Colon cancer ICD-153.9 Inactive Adam luna MD Medication List Medication Instructions Start Date Stop Date Generic Name NDC Status Provider Patient Instruction VITAMIN D3 2000 UNIT ORAL CAPS Melaleuca-One daily CHOLECALCIFEROL 26960968996 Active Kylie Yanet TUBE INSPECTOR Active PROBIOTIC DAILY ORAL CAPS Take one daily PROBIOTIC PRODUCT 88104737731 Active Kylie Holt TUBE INSPECTOR Active IRON 325 (65 FE) MG TABS 1 every other day FERR OUS SULFATE 56263336359 No Longer Active Kylie Holt TUBE INSPECTOR Active FLORANEX PACK 1 pack three times daily, for bowel health LACTOBACILLUS 67688472861 No Longer Active Kylie Holt TUBE INSPECTOR Active LOMOTIL 2.5-0.025 MG TABS 1 tab by mouth prn 4 DIPHENOXYLATE-ATROPINE 78194370632 No Longer Active Kylie Lundum TUBE INSPECTOR Active MAGNESIUM GLUCONATE 250 MG TABS 1 tab tid 4 MAGNESIUM GLUCONATE 50444514567 No Longer Active Kylie Holt TUBE INSPECTOR Active CYANOCOBALAMIN 1000 MCG/ML INJ SOLN 1 injection every 2 weeks 20 20/01/03 CYANOCOBALAMIN 35187173850 No Longer Active Kylie Holt TUBE INSPECTOR Active ATENOLOL 25 MG ORAL TABS 1/2 pill by mouth daily, for headac hes, blood pressure ATENOLOL 55209485755 Active Kylie Lundum TUBE INSPECTOR Active PROPRANOLOL HCL 80 MG TABS 1 tab tue. and thur. 04/10 PROPRANOLOL HCL 07430080083 No Longer Active Hope Benavidez MD PhD A ctive VITAMIN D3 4000 IU 1 tab 3 times daily VITAMIN D3 4000 IU No Longer Active Hope Benavidez MD PhD Active BACTRIM DS 800-160 MG TABS 1 pill by mouth twice daily, for UTI SULFAMETHOXAZOLE-TRIMETHOPRIM 89611211444 No Longer Active A attila Benavidez MD PhD Active PROLIA 60 MG/ML SOLN 1 shot every 6 months for osteoprosis DENOSUMAB 61647743155 Active Hope Benavidez MD PhD Active CALCIUM + D + K 750-500-40 MG-UNT-MCG TABS 1 tab by mouth tw ice daily CALCIUM-VITAMIN D-VITAMIN K 33251506017 Active Hope landers MD PhD Active DAILY VALUE MULTIVITAMIN TABS 1 tab by mouth twice daily MULTIPLE VITAMIN 40217746205 Active Hope Benavidez MD PhD Active FISH OIL 306 MG CAPS 1 tab by mouth three times daily OMEGA-3 FATTY ACIDS 18112161105 Active Hope Benavidez MD PhD Active LUTEIN 10 MG TABS 1 tab daily LUTEIN 19806625589 Act cash Hope Benavidez MD PhD Active TRIAMTERENE-HCTZ 37.5-25 MG TABS 1 tab by mouth daily TRIAMTERENE-HCTZ 04987381527 Active Kylieshubham Holt TUBE INSPECTOR Active CYCLOBENZAPRINE HCL 10 MG TABS 1 tablet by mouth three times daily as needed for headaches CYCLOBENZAPRINE HCL 44444151391 No Longe r Active Adam Yates MD Active OMEPRAZOLE 20 MG CPDR 1 tablet by mouth daily for GERD OMEPRAZOLE 32301268824 No Longer Active Adam Yates MD A ctive ZOFRAN 8 MG TABS 1 tab by mouth every 12 hours prn 201 05/16/09 ONDANSETRON HCL 77367765056 No Longer Active Adam Yates MD Active PHENADOZ 25 MG SUPP 1 every 4 hrs. PRN PROMETHA ZINE HCL 48171827547 No Longer Active Adam Yates MD Active POTASSIUM CHLORIDE 20 MEQ PACK by mouth twice a day prn POTASSIUM CHLORIDE 00894767988 No Longer Active Adam Yates MD Active PROMETHAZINE HCL 25 MG TABS 1 Q. 4 hr. PRN PROM ETHAZINE HCL 64971408144 No Longer Active Adam Yates MD Active INNOPRAN XL 120 MG [id number] Take one by mouth daily 2 PROPRANOLOL HCL SR BEADS 05703626079 No Longer Active Adam Yates MD A ctive FLAGYL 500 MG TABS 1 pill by mouth three times daily, for diarrh ea METRONIDAZOLE 05250341914 No Longer Active Hope Benavidez MD PhD Active DYAZIDE 37.5-25 MG CAPS 1 qd TRIAMTERENE-HC TZ 88315650353 No Longer Active Hope Benavidez MD PhD Active PROZAC 20 MG CAPS 1 q d FLUOXETINE HCL 97899 836454 No Longer Active Hope Benavidez MD PhD Active SIMVASTATIN 40 MG TABS 1 qd SIMVASTATIN 004 22068236 No Longer Active Adam Yates MD Active MELOXICAM 15 MG TABS 1 qd MELOXICAM 7569614 2024 No Longer Active Adam Yates MD Active IMODIUM A-D 2 MG TABS 2 onset at diarrhea and prn. LOPERAMIDE HCL 82086502241 Active Hope Benavidez MD PhD Active EXCEDRIN EXTRA STRENGTH 250-250-65 MG TABS 1-2 q6h PRN headache 201 04/16/21 [id number] 51218813439 Active Hope Benavidez MD PhD Active FLAGYL 500 MG TABS 1 qid METRONIDAZOLE 05639 642138 No Longer Active Adam Yates MD Active LEVAQUIN 750 MG TABS 1 qd LEVOFLOXACIN 5486 3994582 No Longer Active Adam Yates MD Active ADULT ASPIRIN LOW STRENGTH 81 MG TBDP 1 qd A SPIRIN 50636055665 Active Hope Benavidez MD PhD Active LEVAQUIN 750 MG TABS 1 qd LEVAQUIN 750 MG T ABS 383789 LEVOFLOXACIN Inactive FLAGYL 500 MG TABS 1 qid FLAGYL 500 MG TABS 847596 METRONIDAZOLE Inactive MELOXICAM 15 MG TABS 1 qd MELOXICAM 15 MG T ABS 157691 MELOXICAM Inactive SIMVASTATIN 40 MG TABS 1 qd SIMVASTATIN 40 MG TABS 526781 SIMVASTATIN Inactive PROZAC 20 MG CAPS 1 q d PROZAC 20 MG CAPS 31 0385 FLUOXETINE HCL Inactive DYAZIDE 37.5-25 MG CAPS 1 qd DYAZIDE 37.5 -25 MG CAPS 925459 TRIAMTERENE-HCTZ Inactive INNOPRAN XL 120 MG [id number] Take one by mouth daily 2 INNOPRAN XL 120 MG [id number] PROPRANOLOL HCL SR BEADS Inactive PROMETHAZINE HCL 25 MG TABS 1 Q. 4 hr. PRN PROMETHAZINE HCL 25 MG TABS 714642 PROMETHAZINE HCL Inactive POTASSIUM CHLORIDE 20 MEQ PACK by mouth twice a day prn POTASSIUM CHLORIDE 20 MEQ PACK 893040 POTASSIUM CHLORIDE Inactive PHENADOZ 25 MG SUPP 1 every 4 hrs. PRN PHENADOZ 2 5 MG SUPP 048219 PROMETHAZINE HCL Inactive ZOFRAN 8 MG TABS 1 tab by mouth every 12 hours prn 201 05/16/09 ZOFRAN 8 MG TABS 968328 ONDANSETRON HCL Inactive OMEPRAZOLE 20 MG CPDR 1 tablet by mouth daily for GERD OMEPRAZOLE 20 MG CPDR 432590 OMEPRAZOLE Inactive CYCLOBENZAPRINE HCL 10 MG TABS 1 tablet by mouth three times daily as needed for headaches CYCLOBENZAPRINE HCL 10 MG TABS 884579 CYCLOBENZAPRINE HCL Inactive VITAMIN D3 4000 IU 1 tab 3 times daily VITAMIN D3 4000 IU Inactive PROPRANOLOL HCL 80 MG TABS 1 tab tue. and thur. 04/10 PROPRANOLOL HCL 80 MG TABS 896217 PROPRANOLOL HCL Inactive CYANOCOBALAMIN 1000 MCG/ML INJ SOLN 1 injection every 2 weeks 20 20/01/03 CYANOCOBALAMIN 1000 MCG/ML INJ SOLN 363995 CYANOCOBALAM IN Inactive MAGNESIUM GLUCONATE 250 MG TABS 1 tab tid 4 MAGNESIUM GLUCONATE 250 MG TABS 678946 MAGNESIUM GLUCONATE Inactive LOMOTIL 2.5-0.025 MG TABS 1 tab by mouth prn 4 LOMOTIL 2.5- 0.025 MG TABS 6102824 DIPHENOXYLATE-ATROPINE Inactive FLORANEX PACK 1 pack three times daily, for bowel health FLORANEX PACK LACTOBACILLUS Inactive IRON 325 (65 FE) MG TABS 1 every other day IRON 325 (65 FE) MG TABS 046307 FERROUS SULFATE Inactive FLAGYL 500 MG TABS 1 pill by mouth three times daily, for diarrh ea FLAGYL 500 MG TABS 143699 METRONIDAZOLE Inactive BACTRIM DS 800-160 MG TABS 1 pill by mouth twice daily, for UTI BACTRIM DS 800-160 MG TABS 356021 SULFAMETHOXAZOLE-TRIM ETHOPRIM Inactive Advance Directives Directive Description [...] Panel - Chemistry sodium, serum 142 mmol/L 933-520 2218/04/20 carbon dioxide, venous blood 34.7 mmol/L 21.0-32 [...] (RBC) count 4.48 10^6/MM^3 10*6/mm3 4.04-5.4 8 lymphocytes as percent of blood leukocytes 35.6 % 20.5-51.1 monocytes as percent of blood leukocytes 5.9 % 1.7-9.3 neutrophils as percent of blood leukocytes 54.2 % 42.2-75.2 leukocyte count, blood 5.9 10^3/MM^3 10*3/mm3 4.6-10.2 hemoglobin, blood 14.5 g/dL 12.0-16.0 hematocrit, blood [...] ... - Chemistry sodium, serum 139 mmol/L 198-298 8463/10/20 carbon dioxide, venous blood 32.2 mmol/L 21.0-32 [...] 11 .6-14.8 platelet count 180 10^3/MM^3 10*3/mm3 752-713 7109/10/20 leukocyte count, blood 6.0 10^3/MM^3 10*3/mm3 4.6-10.2 neutrophils as percent of blood leukocytes 53.4 % 42.2-75.2 monocytes as percent of blood leukocytes 4.7 % 1.7-9.3 lymphocytes as percent of blood leukocytes 37.9 % 20.5-51.1 Lab Report: CEA - Serology carcinoembryonic antigen 0.9 ng/mL carcinoembryonic antigen 0.9 ng/mL Lab Report: Lipid Panel, Calcium - Chemi stry cholesterol, serum 200 mg/dL 190-948 5466/11/22 triglyceride, serum, fasting 129 mg/dL 30-200 HDL cholesterol, serum 56 mg/dL 32-96 LDL cholesterol, serum 118 mg/dL 0-130 calcium, serum 9.0 mg/dL 8.5-10.1 Lab Report: MicroAlb Random w/creat/6517 - Urinalysis microalbumin/total urine volume 8 mg/L Units converted. See lab report for original value. microalbumin/creatinine ratio, urine 15 MCG/MG CREAT mg/L <30 Encounters Code Encounter Date Provider Facility CPT-85842 Level 3 New Patient 16:22:01 MANUFACTURING SPECIALIST Adam Yatse MD [facility] CPT-69787 Level 4 Est. Patient 17:00:48 CDT Kylie Yok [facility] [place] CPT-30436 Level 3 Est. Patient 13:15:54 CDT Kylie Lund [facility] [place] CPT-37991 Level 3 Est. Patient 09:10:11 CDT Kylie Lund [facility] [place] CPT-58061 Level 4 Est. Patient 12:08:30 MANUFACTURING SPECIALIST Hope cohn MD PhD [facility] [place] CPT-54213 Level 4 Est. Patient 19:08:42 MANUFACTURING SPECIALIST Hope cohn MD PhD [facility] [place] CPT-89002 Level 4 Est. Patient 20:04:51 CDT Hope cohn MD [facility] CPT-59113 Level 3 New Patient 01:46:11 MANUFACTURING SPECIALIST Hope landers MD PhD [facility] [place] Procedures Code Procedure Name Date Entry Date Standard Desc ription CPT-54818 Lipid - LAB USE ONLY 10:01:52 MANUFACTURING SPECIALIST 2 CPT-21369 Calcium - LAB USE ONLY 10:01:51 MANUFACTURING SPECIALIST CPT-94162 Venipuncture Draw Fee 10:01:51 MANUFACTURING SPECIALIST CPT-LR Lesion Removal 16:22:01 MANUFACTURING SPECIALIST CPT-27301 TSH - LAB USE ONLY 14:26:02 CDT CPT-78512 CMP - LAB USE ONLY 14:26:01 CDT CPT-60246 CBC with Diff - LAB USE ONLY 14:26:01 CDT 2 CPT-04423 Venipuncture Draw Fee 14:26:01 CDT CPT-24741 First Vx - Ix admin for Medicare patients 13:27:08 CDT CPT-67271 Fluzone High-Dose Intramuscular Suspension 11/26 13:27:08 CDT CPT-G0438 Initial Annual Wellness Exam 14:19:57 CD T CPT-G0009 Administration of Pneumococcal Vaccine 9 11:36:25 CDT CPT-32077 Prevnar 13 Intramuscular Suspension 1 1:36:25 CDT CPT-18692 Prevnar 13 Intramuscular Suspension 1 0:40:58 CDT CPT-J0897 Prolia 60 mg 10:37:16 CDT CPT-09635 Abx/Therapy Injection 10:37:16 CDT CPT-J0897 Prolia 60 mg 16:09:34 MANUFACTURING SPECIALIST CPT-J0897 Prolia 60 mg 11:10:35 MANUFACTURING SPECIALIST CPT-81636 Abx/Therapy Injection 11:10:35 MANUFACTURING SPECIALIST CPT-000 Give Appropriate Flu Vaccine 17:01:15 MANUFACTURING SPECIALIST 2 CPT-72706 Fluzone High Dose (65+) 15:03:08 MANUFACTURING SPECIALIST 02/15 CPT-44638 Immunization Single Admin 15:03:08 MANUFACTURING SPECIALIST 2014 CPT-OV Office Visit 15:58:06 CDT CPT-J0897 Prolia 60 mg 08:45:38 CDT CPT-68948 Abx/Therapy Injection 08:45:38 CDT CPT-J3420 Vitamin B12 1000mcg (Cyanocobalamin) 09:26:20 MANUFACTURING SPECIALIST CPT-93257 Abx/Therapy Injection 09:26:20 MANUFACTURING SPECIALIST CPT-J3420 Vitamin B12 1000mcg (Cyanocobalamin) 09:44:40 MANUFACTURING SPECIALIST CPT-87930 Abx/Therapy Injection 09:44:40 MANUFACTURING SPECIALIST CPT-J3420 Vitamin B12 1000mcg (Cyanocobalamin) 09:15:54 MANUFACTURING SPECIALIST CPT-91398 Abx/Therapy Injection 09:15:54 MANUFACTURING SPECIALIST CPT-J3420 Vitamin B12 1000mcg (Cyanocobalamin) 09:46:44 MANUFACTURING SPECIALIST CPT-74442 Abx/Therapy Injection 09:46:44 MANUFACTURING SPECIALIST CPT-J3420 Vitamin B12 1000mcg (Cyanocobalamin) 09:47:34 MANUFACTURING SPECIALIST CPT-08313 Abx/Therapy Injection 09:47:34 MANUFACTURING SPECIALIST CPT-J3420 Vitamin B12 1000mcg (Cyanocobalamin) 14:35:50 MANUFACTURING SPECIALIST CPT-J3420 Vitamin B12 1000mcg (Cyanocobalamin) 09:25:05 MANUFACTURING SPECIALIST CPT-17191 Abx/Therapy Injection 09:25:05 MANUFACTURING SPECIALIST CPT-G0008 Administration of Influenza Virus Vaccine 13:36:47 CDT CPT-63131 Fluzone High-Dose Intramuscular Suspension 11/15 13:36:47 CDT CPT-J0897 Prolia 60 mg 08:50:41 CDT CPT-78988 Abx/Therapy Injection 08:50:41 CDT CPT-85946 Bone Density 12:06:12 CDT CPT-02754 Bone Density 08:54:40 CDT CPT-OV Office Visit 15:37:02 CDT CPT-74491 Postop F/U Visit 15:47:49 CDT CPT-50684 Postop F/U Visit 15:21:02 CDT CPT-TCMH Transitional Care Mgmt-High 07:52:27 CDT 20 20/06/01 CPT-86390 Venipuncture Draw Fee 13:51:18 CDT CPT-65229 Venipuncture Draw Fee 10:14:55 MANUFACTURING SPECIALIST CPT-78587 Venipuncture Draw Fee 13:39:45 MANUFACTURING SPECIALIST CPT-OV Office Visit 15:11:22 MANUFACTURING SPECIALIST CPT-94502 Venipuncture Draw Fee 09:20:49 MANUFACTURING SPECIALIST CPT-75836 Venipuncture Draw Fee 16:52:15 MANUFACTURING SPECIALIST CPT-58574 Venipuncture Draw Fee 10:37:24 MANUFACTURING SPECIALIST CPT-29698 Venipuncture Draw Fee 08:21:21 MANUFACTURING SPECIALIST CPT-09888 Venipuncture Draw Fee 08:30:20 MANUFACTURING SPECIALIST CPT-64478 Venipuncture Draw Fee 14:53:21 MANUFACTURING SPECIALIST CPT-03790 Venipuncture Draw Fee 09:40:56 MANUFACTURING SPECIALIST CPT-90469 Venipuncture Draw Fee 10:30:47 MANUFACTURING SPECIALIST CPT-10592 Venipuncture Draw Fee 10:46:17 MANUFACTURING SPECIALIST CPT-06342 Venipuncture Draw Fee 11:12:45 MANUFACTURING SPECIALIST CPT-03367 Venipuncture Draw Fee 09:53:33 MANUFACTURING SPECIALIST CPT-24461 Venipuncture Draw Fee 11:53:51 MANUFACTURING SPECIALIST CPT-90318 Venipuncture Draw Fee 10:33:50 MANUFACTURING SPECIALIST CPT-97792 Venipuncture Draw Fee 10:05:01 MANUFACTURING SPECIALIST CPT-74994 Venipuncture Draw Fee 14:32:52 MANUFACTURING SPECIALIST CPT-84750 Venipuncture Draw Fee 09:46:13 MANUFACTURING SPECIALIST CPT-16424 Venipuncture Draw Fee 11:34:27 MANUFACTURING SPECIALIST CPT-82147 Venipuncture Draw Fee 13:17:16 MANUFACTURING SPECIALIST CPT-34820 Venipuncture Draw Fee 12:05:39 CDT CPT-51470 Venipuncture Draw Fee 12:49:12 CDT CPT-66183 Venipuncture Draw Fee 12:37:18 CDT CPT-23108 Venipuncture Draw Fee 10:57:11 CDT CPT-71706 Venipuncture Draw Fee 13:47:40 CDT CPT-25915 Venipuncture Draw Fee 10:02:17 CDT CPT-08852 TB Tubersol 17:32:32 CDT CPT-OV Office Visit 16:21:53 CDT CPT-OV Office Visit 15:49:22 CDT CPT-OV Office Visit 17:16:31 CDT CPT-OV Office Visit 10:43:31 CDT
--- OUTSIDE RECORDS SUMMARY | 2019-02-09 12:30 | XMS REPORT | Clinical Summary ---
Author Author Renaldo, Florecita Munoz Organization [facility] [place] [employer] Address Unknown Phone Unavailable Allergies, Adverse Reactions, [...] PhD Hyperpotassemia GERD 530.81 Resolved Kylie Yokum CROZER OPERATOR Esophageal reflux Health maintenance exam V70.0 Resolved Adolfo Yates MD Routine general medical examination at a health care facility Anemia 285.9 Resolved Kylie Holt CROZER OPERATOR Anemia, unspecified Personal history of malignant [...] Sebaceous cyst, scalp 706.2 Resolved Kylie Holt CROZER OPERATOR Sebaceous cyst Cervical lymphadenopathy, anterior, left 785.6 Resolv ed Kylie Holt CROZER OPERATOR Enlargement of lymph nodes Need for prophylactic vaccination and inoculation against in fluenza V04.81 Resolved Adam Yates MD Need for prophylactic vaccination and inoculation against influenza Preventive health care V70.0 Active Kylie Holt CROZER OPERATOR Routine general medical examination at a health care facility Thyroid nodule, left 241.0 Active Kylie Holt A PRN Nontoxic uninodular goiter Screening mammogram V76.12 Active Kylie Holt AP RN Other screening mammogram Mandy 706.2 Active Adam Yates MD Sebaceous cyst Colon cancer, ascending 153.6 Active Kelsy F aux RMA Malignant neoplasm of ascending colon Foot pain, left 729.5 Active 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 Pain in limb ABDOMINAL PAIN, RIGHT LOWER QUADRANT ICD-789.03 Inactive Kina Joshua CROZER OPERATOR ADENOCARCINOMA, COLON, 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 Dick Yates MD ABDOMINAL PAIN, GENERALIZED ICD-789.07 Inactive Hope Benavidez MD PhD FEVER UNSPECIFIED ICD-780.60 Inactive Hope cohn MD PhD UNSPECIFIED VENOUS INSUFFICIENCY ICD-459.81 [place] ctive Adam Yates MD ADENOCARCINOMA, 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 Inac abdelrahman Benavidez MD PhD Hyperkalemia ICD-276.7 Inactive Hope Benavidez MD PhD GERD ICD-530.81 Inactive Kylie Yokum CROZER OPERATOR 2015 Health maintenance exam ICD-V70.0 Bam Yates MD Anemia ICD-285.9 Inactive Kylie Yokum CROZER OPERATOR 07/24 Weakness ICD-780.79 Inactive Hope Benavidez [...] cyst, scalp ICD-706.2 Inactive Tracy hi Yokum CROZER OPERATOR Cervical lymphadenopathy, anterior, left ICD-785.6 Inactive Kylie Yokum CROZER OPERATOR Need for prophylactic vaccination and inoculation against in fluenza ICD-V04.81 Inactive Adam Yates MD Medication List Medication Instructions Start Date Stop Date Generic Name NDC Status Provider Patient Instruction COQ10 100 MG ORAL CAPS 1 daily COENZYME Q10 [id number] 20 Active Fay VIRI AlbertsLisa Active VITAMIN D3 2000 UNIT ORAL CAPS Melaleuca-One daily CHOLECALCIFEROL 96273694885 Active Kylie Lundum CROZER OPERATOR Active PROBIOTIC DAILY ORAL CAPS Take one daily PROBIOTIC PRODUCT 20699420341 Active Kylie Lundum CROZER OPERATOR Active IRON 325 (65 FE) MG TABS 1 every other day FERR OUS SULFATE 88614986076 No Longer Active Kylie Lundum CROZER OPERATOR Active FLORANEX PACK 1 pack three times daily, for bowel health LACTOBACILLUS 97265702953 No Longer Active Kylie Holt APRN Active LOMOTIL 2.5-0.025 MG TABS 1 tab by mouth prn 4 DIPHENOXYLATE-ATROPINE 70188820322 No Longer Active Kylie Lundum CROZER OPERATOR Active MAGNESIUM GLUCONATE 250 MG TABS 1 tab tid 4 MAGNESIUM GLUCONATE 56231674143 No Longer Active Kylie Lundum CROZER OPERATOR Active CYANOCOBALAMIN 1000 MCG/ML INJ SOLN 1 injection every 2 weeks 20 20/01/03 CYANOCOBALAMIN 60402000494 No Longer Active Kylie Lundum CROZER OPERATOR Active ATENOLOL 25 MG ORAL TABS 1/2 pill by mouth daily, for headac hes, blood pressure ATENOLOL 61820840430 Active Kylie Yokum CROZER OPERATOR Active PROPRANOLOL HCL 80 MG TABS 1 tab tue. and thur. 04/10 PROPRANOLOL HCL 14469580314 No Longer Active Hope Benavidez MD PhD A ctive VITAMIN D3 4000 IU 1 tab 3 times daily VITAMIN D3 4000 IU No Longer Active Hope Benavidez MD PhD Active BACTRIM DS 800-160 MG TABS 1 pill by mouth twice daily, for UTI SULFAMETHOXAZOLE-TRIMETHOPRIM 51451192769 No Longer Active Lisa Benavidez MD PhD Active PROLIA 60 MG/ML SOLN 1 shot every 6 months for osteoprosis DENOSUMAB 36742233324 Active Hope Benavidez MD PhD Active CALCIUM + D + K 750-500-40 MG-UNT-MCG TABS 1 tab by mouth tw ice daily CALCIUM-VITAMIN D-VITAMIN K 05347664313 Active Hope landers MD PhD Active DAILY VALUE MULTIVITAMIN TABS 1 tab by mouth twice daily MULTIPLE VITAMIN 64257881226 Active Hoep Benavidez MD PhD Active FISH OIL 306 MG CAPS 1 tab by mouth three times daily OMEGA-3 FATTY ACIDS 63692170421 Active Hope Benavidez MD PhD Active LUTEIN 10 MG TABS 1 tab daily LUTEIN 76828290298 Act cash Hope Benavidez MD PhD Active TRIAMTERENE-HCTZ 37.5-25 MG TABS 1 tab by mouth daily TRIAMTERENE-HCTZ 04397677593 Active Kylie Escalonapari REYES Active CYCLOBENZAPRINE HCL 10 MG TABS 1 tablet by mouth three times daily as needed for headaches CYCLOBENZAPRINE HCL 25510681697 No Longe r Active Adam Yates MD Active OMEPRAZOLE 20 MG CPDR 1 tablet by mouth daily for GERD OMEPRAZOLE 89728068824 No Longer Active Adam Yates MD A ctive ZOFRAN 8 MG TABS 1 tab by mouth every 12 hours prn 201 05/16/09 ONDANSETRON HCL 79023028429 No Longer Active Adam Yates MD Active PHENADOZ 25 MG SUPP 1 every 4 hrs. PRN PROMETHA ZINE HCL 49478066373 No Longer Active Adam Yates MD Active POTASSIUM CHLORIDE 20 MEQ PACK by mouth twice a day prn POTASSIUM CHLORIDE 60402547345 No Longer Active Adam Yates MD Active PROMETHAZINE HCL 25 MG TABS 1 Q. 4 hr. PRN PROM ETHAZINE HCL 47908461435 No Longer Active Adam Yates MD Active INNOPRAN XL 120 MG [id number] Take one by mouth daily 2 PROPRANOLOL HCL SR BEADS 87618667525 No Longer Active Adam Yates MD A ctive FLAGYL 500 MG TABS 1 pill by mouth three times daily, for diarrh ea METRONIDAZOLE 51176377571 No Longer Active Hope Benavidez MD PhD Active DYAZIDE 37.5-25 MG CAPS 1 qd TRIAMTERENE-HC TZ 81472973669 No Longer Active Hope Benavidez MD PhD Active PROZAC 20 MG CAPS 1 q d FLUOXETINE HCL 46310 442383 No Longer Active Hope Benavidez MD PhD Active SIMVASTATIN 40 MG TABS 1 qd SIMVASTATIN 004 78914319 No Longer Active Adam Yates MD Active MELOXICAM 15 MG TABS 1 qd MELOXICAM 0704634 9956 No Longer Active Adam Yates MD Active IMODIUM A-D 2 MG TABS 2 onset at diarrhea and prn. LOPERAMIDE HCL 27915753299 Active Hope Benavidez MD PhD Active EXCEDRIN EXTRA STRENGTH 250-250-65 MG TABS 1-2 q6h PRN headache 201 04/16/21 [id number] 86912959180 Active Hope Benavidez MD PhD Active FLAGYL 500 MG TABS 1 qid METRONIDAZOLE 03153 609930 No Longer Active Adam Yates MD Active LEVAQUIN 750 MG TABS 1 qd LEVOFLOXACIN 5486 7956342 No Longer Active Adam Yates MD Active ADULT ASPIRIN LOW STRENGTH 81 MG TBDP 1 qd A SPIRIN 54472378622 Active Hope Benavidez MD PhD Active LEVAQUIN 750 MG TABS 1 qd LEVAQUIN 750 MG T ABS 086844 LEVOFLOXACIN Inactive FLAGYL 500 MG TABS 1 qid FLAGYL 500 MG TABS 096374 METRONIDAZOLE Inactive MELOXICAM 15 MG TABS 1 qd MELOXICAM 15 MG T ABS 139990 MELOXICAM Inactive SIMVASTATIN 40 MG TABS 1 qd SIMVASTATIN 40 MG TABS 933107 SIMVASTATIN Inactive PROZAC 20 MG CAPS 1 q d PROZAC 20 MG CAPS 31 0385 FLUOXETINE HCL Inactive DYAZIDE 37.5-25 MG CAPS 1 qd DYAZIDE 37.5 -25 MG CAPS 471970 TRIAMTERENE-HCTZ Inactive INNOPRAN XL 120 MG [id number] Take one by mouth daily 2 INNOPRAN XL 120 MG [id number] PROPRANOLOL HCL SR BEADS Inactive PROMETHAZINE HCL 25 MG TABS 1 Q. 4 hr. PRN PROMETHAZINE HCL 25 MG TABS 083892 PROMETHAZINE HCL Inactive POTASSIUM CHLORIDE 20 MEQ PACK by mouth twice a day prn POTASSIUM CHLORIDE 20 MEQ PACK 1037414 POTASSIUM CHLORIDE Inactive PHENADOZ 25 MG SUPP 1 every 4 hrs. PRN PHENADOZ 2 5 MG SUPP 820369 PROMETHAZINE HCL Inactive ZOFRAN 8 MG TABS 1 tab by mouth every 12 hours prn 201 05/16/09 ZOFRAN 8 MG TABS 085709 ONDANSETRON HCL Inactive OMEPRAZOLE 20 MG CPDR 1 tablet by mouth daily for GERD OMEPRAZOLE 20 MG CPDR 739919 OMEPRAZOLE Inactive CYCLOBENZAPRINE HCL 10 MG TABS 1 tablet by mouth three times daily as needed for headaches CYCLOBENZAPRINE HCL 10 MG TABS 089282 CYCLOBENZAPRINE HCL Inactive VITAMIN D3 4000 IU 1 tab 3 times daily VITAMIN D3 4000 IU Inactive PROPRANOLOL HCL 80 MG TABS 1 tab tue. and thur. 04/10 PROPRANOLOL HCL 80 MG TABS 751695 PROPRANOLOL HCL Inactive CYANOCOBALAMIN 1000 MCG/ML INJ SOLN 1 injection every 2 weeks 20 20/01/03 CYANOCOBALAMIN 1000 MCG/ML INJ SOLN 393374 CYANOCOBALAM IN Inactive MAGNESIUM GLUCONATE 250 MG TABS 1 tab tid 4 MAGNESIUM GLUCONATE 250 MG TABS 473383 MAGNESIUM GLUCONATE Inactive LOMOTIL 2.5-0.025 MG TABS 1 tab by mouth prn 4 LOMOTIL 2.5- 0.025 MG TABS 0454245 DIPHENOXYLATE-ATROPINE Inactive FLORANEX PACK 1 pack three times daily, for bowel health FLORANEX PACK LACTOBACILLUS Inactive IRON 325 (65 FE) MG TABS 1 every other day IRON 325 (65 FE) MG TABS 877883 FERROUS SULFATE Inactive FLAGYL 500 MG TABS 1 pill by mouth three times daily, for diarrh ea FLAGYL 500 MG TABS 112369 METRONIDAZOLE Inactive BACTRIM DS 800-160 MG TABS 1 pill by mouth twice daily, for UTI BACTRIM DS 800-160 MG TABS 938240 SULFAMETHOXAZOLE-TRIM ETHOPRIM Inactive Advance Directives Directive Description [...] 11 .0-15.0 platelet count 157 THOUSAND/UL 10*3/mm3 705-258 5923/04/20 mean platelet volume 8.9 fL 7.5-12.5 Lab Report: CBC W/DIFF, Comp. Metabolic Panel, Thyroid Stimulating Hormo ... - Chemistry sodium, serum 139 mmol/L 845-494 3030/10/20 carbon dioxide, venous blood 32.2 mmol/L 21.0-32 [...] - Chemi stry cholesterol, serum 200 mg/dL 877-245 5136/11/22 triglyceride, serum, fasting 129 mg/dL 30-200 HDL cholesterol, serum 56 mg/dL 32-96 LDL cholesterol, serum 118 mg/dL 0-130 calcium, serum 9.0 mg/dL 8.5-10.1 Lab Report: MicroAlb Random w/creat/6517 - Urinalysis microalbumin/total urine volume 8 mg/L Units converted. See lab report for original value. microalbumin/creatinine ratio, urine 15 MCG/MG CREAT mg/L <30 Encounters Code Encounter Date Provider Facility CPT-83408 Level 3 Est. Patient 16:26:30 CDT Kina blackmon [facility] CPT-27162 Level 3 New Patient 16:22:01 PRESSURE VESSEL INSPECTOR Adam Yates MD [facility] CPT-99321 Level 4 Est. Patient 17:00:48 CDT Kylie Lund [facility] CPT-09052 Level 3 Est. Patient 13:15:54 CDT Kylie Lund [facility] CPT-60613 Level 3 Est. Patient 09:10:11 CDT Kylie Lund [facility] CPT-10852 Level 4 Est. Patient 12:08:30 PRESSURE VESSEL INSPECTOR Hope cohn MD [facility] CPT-80515 Level 4 Est. Patient 19:08:42 PRESSURE VESSEL INSPECTOR Hope cohn MD PhD [facility] CPT-01183 Level 4 Est. Patient 20:04:51 CDT Hope cohn MD PhD [facility] CPT-28182 Level 3 New Patient 01:46:11 PRESSURE VESSEL INSPECTOR Hope landers MD PhD [facility] Procedures Code Procedure Name Date Entry Date Standard Desc ription CPT-27815 Foot, left, comp min 3V - XRAY USE ONLY 12:22:49 CDT CPT-G0009 Administration of Pneumococcal Vaccine 3 12:18:00 CDT CPT-11039 Pneumovax 23 Injection Injectable 25 MCG /0.5ML 12:18:00 CDT CPT-J0897 Prolia 60 mg 14:14:16 PRESSURE VESSEL INSPECTOR CPT-95441 Abx/Therapy Injection 14:14:15 PRESSURE VESSEL INSPECTOR CPT-01034 Lipid - LAB USE ONLY 10:01:52 PRESSURE VESSEL INSPECTOR 2 CPT-65593 Calcium - LAB USE ONLY 10:01:51 PRESSURE VESSEL INSPECTOR CPT-97589 Venipuncture Draw Fee 10:01:51 PRESSURE VESSEL INSPECTOR CPT-LR Lesion Removal 16:22:01 PRESSURE VESSEL INSPECTOR CPT-23994 TSH - LAB USE ONLY 14:26:02 CDT CPT-40174 CMP - LAB USE ONLY 14:26:01 CDT CPT-88191 CBC with Diff - LAB USE ONLY 14:26:01 CDT 2 CPT-57852 Venipuncture Draw Fee 14:26:01 CDT CPT-40761 First Vx - Ix admin for Medicare patients 13:27:08 CDT CPT-94569 Fluzone High-Dose Intramuscular Suspension 11/26 13:27:08 CDT CPT-G0438 Initial Annual Wellness Exam 14:19:57 CD T CPT-G0009 Administration of Pneumococcal Vaccine 9 11:36:25 CDT CPT-75694 Prevnar 13 Intramuscular Suspension 1 1:36:25 CDT CPT-49416 Prevnar 13 Intramuscular Suspension 1 0:40:58 CDT CPT-J0897 Prolia 60 mg 10:37:16 CDT CPT-70730 Abx/Therapy Injection 10:37:16 CDT CPT-J0897 Prolia 60 mg 16:09:34 PRESSURE VESSEL INSPECTOR CPT-J0897 Prolia 60 mg 11:10:35 PRESSURE VESSEL INSPECTOR CPT-12877 Abx/Therapy Injection 11:10:35 PRESSURE VESSEL INSPECTOR CPT-000 Give Appropriate Flu Vaccine 17:01:15 PRESSURE VESSEL INSPECTOR 2 CPT-81357 Fluzone High Dose (65+) 15:03:08 PRESSURE VESSEL INSPECTOR 02/15 CPT-39763 Immunization Single Admin 15:03:08 PRESSURE VESSEL INSPECTOR 2014 CPT-OV Office Visit 15:58:06 CDT CPT-J0897 Prolia 60 mg 08:45:38 CDT CPT-52111 Abx/Therapy Injection 08:45:38 CDT CPT-J3420 Vitamin B12 1000mcg (Cyanocobalamin) 09:26:20 PRESSURE VESSEL INSPECTOR CPT-38229 Abx/Therapy Injection 09:26:20 PRESSURE VESSEL INSPECTOR CPT-J3420 Vitamin B12 1000mcg (Cyanocobalamin) 09:44:40 PRESSURE VESSEL INSPECTOR CPT-45523 Abx/Therapy Injection 09:44:40 PRESSURE VESSEL INSPECTOR CPT-J3420 Vitamin B12 1000mcg (Cyanocobalamin) 09:15:54 PRESSURE VESSEL INSPECTOR CPT-99717 Abx/Therapy Injection 09:15:54 PRESSURE VESSEL INSPECTOR CPT-J3420 Vitamin B12 1000mcg (Cyanocobalamin) 09:46:44 PRESSURE VESSEL INSPECTOR CPT-92573 Abx/Therapy Injection 09:46:44 PRESSURE VESSEL INSPECTOR CPT-J3420 Vitamin B12 1000mcg (Cyanocobalamin) 09:47:34 PRESSURE VESSEL INSPECTOR CPT-44423 Abx/Therapy Injection 09:47:34 PRESSURE VESSEL INSPECTOR CPT-J3420 Vitamin B12 1000mcg (Cyanocobalamin) 14:35:50 PRESSURE VESSEL INSPECTOR CPT-J3420 Vitamin B12 1000mcg (Cyanocobalamin) 09:25:05 PRESSURE VESSEL INSPECTOR CPT-51320 Abx/Therapy Injection 09:25:05 PRESSURE VESSEL INSPECTOR CPT-G0008 Administration of Influenza Virus Vaccine 13:36:47 CDT CPT-92502 Fluzone High-Dose Intramuscular Suspension 11/15 13:36:47 CDT CPT-J0897 Prolia 60 mg 08:50:41 CDT CPT-84742 Abx/Therapy Injection 08:50:41 CDT CPT-56203 Bone Density 12:06:12 CDT CPT-03591 Bone Density 08:54:40 CDT CPT-OV Office Visit 15:37:02 CDT CPT-43923 Postop F/U Visit 15:47:49 CDT CPT-30091 Postop F/U Visit 15:21:02 CDT CPT-TCMH Transitional Care Mgmt-High 07:52:27 CDT 20 20/06/01 CPT-46605 Venipuncture Draw Fee 13:51:18 CDT CPT-35740 Venipuncture Draw Fee 10:14:55 PRESSURE VESSEL INSPECTOR CPT-56735 Venipuncture Draw Fee 13:39:45 PRESSURE VESSEL INSPECTOR CPT-OV Office Visit 15:11:22 PRESSURE VESSEL INSPECTOR CPT-34781 Venipuncture Draw Fee 09:20:49 PRESSURE VESSEL INSPECTOR CPT-16863 Venipuncture Draw Fee 16:52:15 PRESSURE VESSEL INSPECTOR CPT-65598 Venipuncture Draw Fee 10:37:24 PRESSURE VESSEL INSPECTOR CPT-57328 Venipuncture Draw Fee 08:21:21 PRESSURE VESSEL INSPECTOR CPT-92005 Venipuncture Draw Fee 08:30:20 PRESSURE VESSEL INSPECTOR CPT-50223 Venipuncture Draw Fee 14:53:21 PRESSURE VESSEL INSPECTOR CPT-81325 Venipuncture Draw Fee 09:40:56 PRESSURE VESSEL INSPECTOR CPT-00088 Venipuncture Draw Fee 10:30:47 PRESSURE VESSEL INSPECTOR CPT-93744 Venipuncture Draw Fee 10:46:17 PRESSURE VESSEL INSPECTOR CPT-87027 Venipuncture Draw Fee 11:12:45 PRESSURE VESSEL INSPECTOR CPT-42083 Venipuncture Draw Fee 09:53:33 PRESSURE VESSEL INSPECTOR CPT-44474 Venipuncture Draw Fee 11:53:51 PRESSURE VESSEL INSPECTOR CPT-30653 Venipuncture Draw Fee 10:33:50 PRESSURE VESSEL INSPECTOR CPT-17490 Venipuncture Draw Fee 10:05:01 PRESSURE VESSEL INSPECTOR CPT-50102 Venipuncture Draw Fee 14:32:52 PRESSURE VESSEL INSPECTOR CPT-10716 Venipuncture Draw Fee 09:46:13 PRESSURE VESSEL INSPECTOR CPT-82187 Venipuncture Draw Fee 11:34:27 PRESSURE VESSEL INSPECTOR CPT-40920 Venipuncture Draw Fee 13:17:16 PRESSURE VESSEL INSPECTOR CPT-85655 Venipuncture Draw Fee 12:05:39 CDT CPT-89466 Venipuncture Draw Fee 12:49:12 CDT CPT-62632 Venipuncture Draw Fee 12:37:18 CDT CPT-89002 Venipuncture Draw Fee 10:57:11 CDT CPT-70367 Venipuncture Draw Fee 13:47:40 CDT CPT-51341 Venipuncture Draw Fee 10:02:17 CDT CPT-25439 TB Tubersol 17:32:32 CDT CPT-OV Office Visit 16:21:53 CDT CPT-OV Office Visit 15:49:22 CDT CPT-OV Office Visit 17:16:31 CDT CPT-OV Office Visit 10:43:31 CDT
--- OUTSIDE RECORDS SUMMARY | 2019-02-09 12:31 | XMS REPORT | Clinical Summary ---
Author Author Admin, Florecita Munoz Organization [facility] Address Unknown Phone Unavailable Allergies, Adverse Reactions, [...] ADENOCARCINOMA, ASCENDING COLON 153.6 Correction 2012 Hope Benaviedz MD PhD Malignant neoplasm of ascending colon Hyperkalemia 276.7 Resolved Hope Benavidez MD PhD Hyperpotassemia GERD 530.81 Resolved Kylie Holt APRN Esophageal reflux Health maintenance exam V70.0 Resolved Adolfo Yates MD Routine general medical examination at a health care facility Anemia 285.9 Resolved Kylie Yanet REYES Anemia, unspecified Personal history of malignant neoplasm of large intestine V10.05 Active Adam Ytaes MD Personal history of malignant neoplasm of [...] Sebaceous cyst, scalp 706.2 Resolved Kylie Holt ANODE WORKER Sebaceous cyst Cervical lymphadenopathy, anterior, left 785.6 Resolv ed Kylie Holt ANODE WORKER Enlargement of lymph nodes Need for prophylactic vaccination and inoculation against in fluenza V04.81 Active Citlaly Watkins RMA Need for prophylactic vaccination and inoculation against influenza Preventive health care V70.0 Active Kylie Holt ANODE WORKER Routine general medical examination at a health care facility Thyroid nodule, left 241.0 Active Kylie Gonzalez PRN Nontoxic uninodular goiter Screening mammogram V76.12 Active Kylie MEEK RN Other screening mammogram ABDOMINAL PAIN, RIGHT LOWER QUADRANT ICD-789.03 Inactive Kina Joshua ANODE WORKER ADENOCARCINOMA, COLON, 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 Dick Yates MD ABDOMINAL PAIN, GENERALIZED ICD-789.07 Inactive oHpe Benavidez MD PhD FEVER UNSPECIFIED ICD-780.60 Inactive Hope cohn MD PhD UNSPECIFIED VENOUS INSUFFICIENCY ICD-459.81 Elda ctive Adam Yates MD ADENOCARCINOMA, 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 Inac tive Hope Benavidez MD PhD Hyperkalemia ICD-276.7 Inactive Hope Benavidez MD PhD GERD ICD-530.81 Inactive Kylie Holt ANODE WORKER 2015 Health maintenance exam ICD-V70.0 Bam Yates MD Anemia ICD-285.9 Inactive Kylie Holt ANODE WORKER 07/24 Weakness ICD-780.79 Inactive Hope Benavidez MD P hD Aftercare following surgery of the teeth,oral cavity a nd digestive system, NEC ICD-V58.75 Inactive Adam Yates MD Colon cancer ICD-153.9 Inactive Adam luna MD Asymptomatic postmenopausal status (age-related) (natural) I CD-V49.81 Inactive Hope Benavidez MD PhD Dysuria ICD-788.1 Inactive Hope Benavidez MD PhD 201 05/19/01 Sebaceous cyst, scalp ICD-706.2 Inactive Tracy Holt ANODE WORKER Cervical lymphadenopathy, anterior, left ICD-785.6 Inactive Kylie Holt ANODE WORKER Medication List Medication Instructions Start Date Stop Date Generic Name NDC Status Provider Patient Instruction VITAMIN D3 2000 UNIT ORAL CAPS Melaleuca-One daily CHOLECALCIFEROL 07863520606 Active Kylie Lundum ANODE WORKER Active PROBIOTIC DAILY ORAL CAPS Take one daily PROBIOTIC PRODUCT 49555600464 Active Kylie Lundum ANODE WORKER Active IRON 325 (65 FE) MG TABS 1 every other day FERR OUS SULFATE 47678616582 No Longer Active Kylie Lundum ANODE WORKER Active FLORANEX PACK 1 pack three times daily, for bowel health LACTOBACILLUS 85038749624 No Longer Active Kylie Lundum ANODE WORKER Active LOMOTIL 2.5-0.025 MG TABS 1 tab by mouth prn 4 DIPHENOXYLATE-ATROPINE 49001477709 No Longer Active Kylie Yokum ANODE WORKER Active MAGNESIUM GLUCONATE 250 MG TABS 1 tab tid 4 MAGNESIUM GLUCONATE 79391805286 No Longer Active Kylie Yokum ANODE WORKER Active CYANOCOBALAMIN 1000 MCG/ML INJ SOLN 1 injection every 2 weeks 20 20/01/03 CYANOCOBALAMIN 60534878433 No Longer Active Kylie Yokum ANODE WORKER Active ATENOLOL 25 MG ORAL TABS 1/2 pill by mouth daily, for headac hes, blood pressure ATENOLOL 27848065640 Active Kylie Yokum ANODE WORKER Active PROPRANOLOL HCL 80 MG TABS 1 tab tue. and thur. 04/10 PROPRANOLOL HCL 78421660477 No Longer Active Hope Benavidez MD PhD A ctive VITAMIN D3 4000 IU 1 tab 3 times daily VITAMIN D3 4000 IU No Longer Active Hope Benavidez MD PhD Active BACTRIM DS 800-160 MG TABS 1 pill by mouth twice daily, for UTI SULFAMETHOXAZOLE-TRIMETHOPRIM 24035493709 No Longer Active A attila Benavidez MD PhD Active PROLIA 60 MG/ML SOLN 1 shot every 6 months for osteoprosis DENOSUMAB 85664386435 Active Hope Benavidez MD PhD Active CALCIUM + D + K 750-500-40 MG-UNT-MCG TABS 1 tab by mouth tw ice daily CALCIUM-VITAMIN D-VITAMIN K 91135393257 Active Hope landers MD PhD Active DAILY VALUE MULTIVITAMIN TABS 1 tab by mouth twice daily MULTIPLE VITAMIN 42265739265 Active Hope Benavidez MD PhD Active FISH OIL 306 MG CAPS 1 tab by mouth three times daily OMEGA-3 FATTY ACIDS 21179010917 Active Hope Benavidez MD PhD Active LUTEIN 10 MG TABS 1 tab daily LUTEIN 73776740899 Act cash Hope Benavidez MD PhD Active TRIAMTERENE-HCTZ 37.5-25 MG TABS 1 tab by mouth daily TRIAMTERENE-HCTZ 04059423167 Active Kylie Holt ANODE WORKER Active CYCLOBENZAPRINE HCL 10 MG TABS 1 tablet by mouth three times daily as needed for headaches CYCLOBENZAPRINE HCL 07660935714 No Longe r Active Adam Yates MD Active OMEPRAZOLE 20 MG CPDR 1 tablet by mouth daily for GERD OMEPRAZOLE 16414264463 No Longer Active Adam Yates MD A ctive ZOFRAN 8 MG TABS 1 tab by mouth every 12 hours prn 201 05/16/09 ONDANSETRON HCL 49289601826 No Longer Active Adam Yates MD Active PHENADOZ 25 MG SUPP 1 every 4 hrs. PRN PROMETHA ZINE HCL 48986718355 No Longer Active Adam Yates MD Active POTASSIUM CHLORIDE 20 MEQ PACK by mouth twice a day prn POTASSIUM CHLORIDE 93447848219 No Longer Active Adam Yates MD Active PROMETHAZINE HCL 25 MG TABS 1 Q. 4 hr. PRN PROM ETHAZINE HCL 24025012041 No Longer Active Adam Yates MD Active INNOPRAN XL 120 MG [id number] Take one by mouth daily 2 PROPRANOLOL HCL SR BEADS 76186603018 No Longer Active Adam Yates MD A ctive FLAGYL 500 MG TABS 1 pill by mouth three times daily, for diarrh ea METRONIDAZOLE 78206086643 No Longer Active Hope Benavidez MD PhD Active DYAZIDE 37.5-25 MG CAPS 1 qd TRIAMTERENE-HC TZ 77681642178 No Longer Active Hope Benavidez MD PhD Active PROZAC 20 MG CAPS 1 q d FLUOXETINE HCL 69071 079070 No Longer Active Hope Benavidez MD PhD Active SIMVASTATIN 40 MG TABS 1 qd SIMVASTATIN 004 65172427 No Longer Active Adam Yates MD Active MELOXICAM 15 MG TABS 1 qd MELOXICAM 0418866 7081 No Longer Active Adam Yates MD Active IMODIUM A-D 2 MG TABS 2 onset at diarrhea and prn. LOPERAMIDE HCL 35280467807 Active Hope Benavidez MD PhD Active EXCEDRIN EXTRA STRENGTH 250-250-65 MG TABS 1-2 q6h PRN headache 201 04/16/21 [id number] 58505611387 Active Hope Benavidez MD PhD Active FLAGYL 500 MG TABS 1 qid METRONIDAZOLE 88612 538268 No Longer Active Adam Yates MD Active LEVAQUIN 750 MG TABS 1 qd LEVOFLOXACIN 5486 8550514 No Longer Active Adam Yates MD Active ADULT ASPIRIN LOW STRENGTH 81 MG TBDP 1 qd A SPIRIN 66261535663 Active Hope Benavidez MD PhD Active LEVAQUIN 750 MG TABS 1 qd LEVAQUIN 750 MG T ABS 315351 LEVOFLOXACIN Inactive FLAGYL 500 MG TABS 1 qid FLAGYL 500 MG TABS 596704 METRONIDAZOLE Inactive MELOXICAM 15 MG TABS 1 qd MELOXICAM 15 MG T ABS 674434 MELOXICAM Inactive SIMVASTATIN 40 MG TABS 1 qd SIMVASTATIN 40 MG TABS 269239 SIMVASTATIN Inactive PROZAC 20 MG CAPS 1 q d PROZAC 20 MG CAPS 31 0385 FLUOXETINE HCL Inactive DYAZIDE 37.5-25 MG CAPS 1 qd DYAZIDE 37.5 -25 MG CAPS 694995 TRIAMTERENE-HCTZ Inactive INNOPRAN XL 120 MG [id number] Take one by mouth daily 2 INNOPRAN XL 120 MG [id number] PROPRANOLOL HCL SR BEADS Inactive PROMETHAZINE HCL 25 MG TABS 1 Q. 4 hr. PRN PROMETHAZINE HCL 25 MG TABS 652201 PROMETHAZINE HCL Inactive POTASSIUM CHLORIDE 20 MEQ PACK by mouth twice a day prn POTASSIUM CHLORIDE 20 MEQ PACK 619006 POTASSIUM CHLORIDE Inactive PHENADOZ 25 MG SUPP 1 every 4 hrs. PRN PHENADOZ 2 5 MG SUPP 165949 PROMETHAZINE HCL Inactive ZOFRAN 8 MG TABS 1 tab by mouth every 12 hours prn 201 05/16/09 ZOFRAN 8 MG TABS 084081 ONDANSETRON HCL Inactive OMEPRAZOLE 20 MG CPDR 1 tablet by mouth daily for GERD OMEPRAZOLE 20 MG CPDR 047074 OMEPRAZOLE Inactive CYCLOBENZAPRINE HCL 10 MG TABS 1 tablet by mouth three times daily as needed for headaches CYCLOBENZAPRINE HCL 10 MG TABS 072150 CYCLOBENZAPRINE HCL Inactive VITAMIN D3 4000 IU 1 tab 3 times daily VITAMIN D3 4000 IU Inactive PROPRANOLOL HCL 80 MG TABS 1 tab tue. and thur. 04/10 PROPRANOLOL HCL 80 MG TABS 856847 PROPRANOLOL HCL Inactive CYANOCOBALAMIN 1000 MCG/ML INJ SOLN 1 injection every 2 weeks 20 20/01/03 CYANOCOBALAMIN 1000 MCG/ML INJ SOLN 717768 CYANOCOBALAM IN Inactive MAGNESIUM GLUCONATE 250 MG TABS 1 tab tid 4 MAGNESIUM GLUCONATE 250 MG TABS 689413 MAGNESIUM GLUCONATE Inactive LOMOTIL 2.5-0.025 MG TABS 1 tab by mouth prn 4 LOMOTIL 2.5- 0.025 MG TABS 9385335 DIPHENOXYLATE-ATROPINE Inactive FLORANEX PACK 1 pack three times daily, for bowel health FLORANEX PACK LACTOBACILLUS Inactive IRON 325 (65 FE) MG TABS 1 every other day IRON 325 (65 FE) MG TABS 564187 FERROUS SULFATE Inactive FLAGYL 500 MG TABS 1 pill by mouth three times daily, for diarrh ea FLAGYL 500 MG TABS 604214 METRONIDAZOLE Inactive BACTRIM DS 800-160 MG TABS 1 pill by mouth twice daily, for UTI BACTRIM DS 800-160 MG TABS 350287 SULFAMETHOXAZOLE-TRIM ETHOPRIM Inactive Advance Directives Directive Description [...] Panel - Chemistry sodium, serum 142 mmol/L 064-961 8905/04/20 carbon dioxide, venous blood 34.7 mmol/L 21.0-32 .0 potassium, serum 3.5 mmol/L 3.5-5.2 chloride, serum 102 mmol/L 98-107 blood glucose 102 mg/dL 65-110 urea nitrogen, blood 24 mg/dL 7-18 creatinine, serum 1.37 mg/dL 0.55-1.30 alanine aminotransferase (SGPT), serum 72 U/L 12-78 aspartate aminotransferase (SGOT), serum 44 U/L 15-37 calcium, serum 9.0 mg/dL 8.5-10.1 bilirubin, serum, total 0.50 mg/dL 0.00-1.00 sodium, serum 138 mmol/L 986-212 9768/10/23 carbon dioxide, venous blood 29.5 mmol/L 21.0-32 [...] 11 .6-14.8 platelet count 189 10^3/MM^3 10*3/mm3 788-294 2669/04/20 leukocyte count, blood 5.9 10^3/MM^3 10*3/mm3 4.6-10.2 [...] ... - Chemistry sodium, serum 139 mmol/L 204-585 1295/10/20 carbon dioxide, venous blood 32.2 mmol/L 21.0-32 [...] 1.24 m[iU]/mL 0.36-3.74 cholesterol, serum 227 mg/dL 903-968 9139/10/23 triglyceride, serum, fasting 144 mg/dL 30-200 HDL cholesterol, serum 60 mg/dL 32-96 LDL cholesterol, serum 138 mg/dL 0-130 Lab Report: Lipid Panel, MICROALBUMIN, T hyroid Stimulating Hormone (L) - Lab microalbumin, urine 10 0-19 Encounters Code Encounter Date Provider Facility CPT-51112 Level 4 Est. Patient 17:00:48 CDT [facility] CPT-58663 Level 3 Est. Patient 13:15:[address] [facility] CPT-54663 Level 3 Est. Patient 09:10:[address] [facility] CPT-16363 Level 4 Est. Patient 12:08:30 PHOTOSTAT OPERATOR HELPER Hope cohn MD PhD [facility] CPT-91536 Level 4 Est. Patient 19:08:42 PHOTOSTAT OPERATOR HELPER Hope cohn MD PhD [facility] CPT-24997 Level 4 Est. Patient 20:04:51 CDT Hope cohn MD PhD [facility] CPT-88357 Level 3 New Patient 01:46:11 PHOTOSTAT OPERATOR HELPER Hope landers MD PhD [facility] Procedures Code Procedure Name Date Entry Date Standard Desc ription CPT-91088 TSH - LAB USE ONLY 14:26:02 CDT CPT-43725 CMP - LAB USE ONLY 14:26:01 CDT CPT-37726 CBC with Diff - LAB USE ONLY 14:26:01 CDT 2 CPT-29014 Venipuncture Draw Fee 14:26:01 CDT CPT-86767 First Vx - Ix admin for Medicare patients 13:27:08 CDT CPT-88473 Fluzone High-Dose Intramuscular Suspension 11/26 13:27:08 CDT CPT-G0438 Initial Annual Wellness Exam 14:19:57 CD T CPT-G0009 Administration of Pneumococcal Vaccine 9 11:36:25 CDT CPT-00705 Prevnar 13 Intramuscular Suspension 1 1:36:25 CDT CPT-15786 Prevnar 13 Intramuscular Suspension 1 0:40:58 CDT CPT-J0897 Prolia 60 mg 10:37:16 CDT CPT-18245 Abx/Therapy Injection 10:37:16 CDT CPT-J0897 Prolia 60 mg 16:09:34 PHOTOSTAT OPERATOR HELPER CPT-J0897 Prolia 60 mg 11:10:35 PHOTOSTAT OPERATOR HELPER CPT-27993 Abx/Therapy Injection 11:10:35 PHOTOSTAT OPERATOR HELPER CPT-000 Give Appropriate Flu Vaccine 17:01:15 PHOTOSTAT OPERATOR HELPER 2 CPT-66771 Fluzone High Dose (65+) 15:03:08 PHOTOSTAT OPERATOR HELPER 02/15 CPT-42981 Immunization Single Admin 15:03:08 PHOTOSTAT OPERATOR HELPER 2014 CPT-OV Office Visit 15:58:06 CDT CPT-J0897 Prolia 60 mg 08:45:38 CDT CPT-44254 Abx/Therapy Injection 08:45:38 CDT CPT-J3420 Vitamin B12 1000mcg (Cyanocobalamin) 09:26:20 PHOTOSTAT OPERATOR HELPER CPT-10212 Abx/Therapy Injection 09:26:20 PHOTOSTAT OPERATOR HELPER CPT-J3420 Vitamin B12 1000mcg (Cyanocobalamin) 09:44:40 PHOTOSTAT OPERATOR HELPER CPT-98778 Abx/Therapy Injection 09:44:40 PHOTOSTAT OPERATOR HELPER CPT-J3420 Vitamin B12 1000mcg (Cyanocobalamin) 09:15:54 PHOTOSTAT OPERATOR HELPER CPT-85907 Abx/Therapy Injection 09:15:54 PHOTOSTAT OPERATOR HELPER CPT-J3420 Vitamin B12 1000mcg (Cyanocobalamin) 09:46:44 PHOTOSTAT OPERATOR HELPER CPT-69477 Abx/Therapy Injection 09:46:44 PHOTOSTAT OPERATOR HELPER CPT-J3420 Vitamin B12 1000mcg (Cyanocobalamin) 09:47:34 PHOTOSTAT OPERATOR HELPER CPT-39411 Abx/Therapy Injection 09:47:34 PHOTOSTAT OPERATOR HELPER CPT-J3420 Vitamin B12 1000mcg (Cyanocobalamin) 14:35:50 PHOTOSTAT OPERATOR HELPER CPT-J3420 Vitamin B12 1000mcg (Cyanocobalamin) 09:25:05 PHOTOSTAT OPERATOR HELPER CPT-36013 Abx/Therapy Injection 09:25:05 PHOTOSTAT OPERATOR HELPER CPT-G0008 Administration of Influenza Virus Vaccine 13:36:47 CDT CPT-72381 Fluzone High-Dose Intramuscular Suspension 11/15 13:36:47 CDT CPT-J0897 Prolia 60 mg 08:50:41 CDT CPT-02657 Abx/Therapy Injection 08:50:41 CDT CPT-19305 Bone Density 12:06:12 CDT CPT-01391 Bone Density 08:54:40 CDT CPT-OV Office Visit 15:37:02 CDT CPT-99215 Postop F/U Visit 15:47:49 CDT CPT-13398 Postop F/U Visit 15:21:02 CDT CPT-TCM Transitional Care Mgmt-High 07:52:27 CDT 20 20/06/01 CPT-76709 Venipuncture Draw Fee 13:51:18 CDT CPT-09450 Venipuncture Draw Fee 10:14:55 PHOTOSTAT OPERATOR HELPER CPT-46167 Venipuncture Draw Fee 13:39:45 PHOTOSTAT OPERATOR HELPER CPT-OV Office Visit 15:11:22 PHOTOSTAT OPERATOR HELPER CPT-62293 Venipuncture Draw Fee 09:20:49 PHOTOSTAT OPERATOR HELPER CPT-87283 Venipuncture Draw Fee 16:52:15 PHOTOSTAT OPERATOR HELPER CPT-17827 Venipuncture Draw Fee 10:37:24 PHOTOSTAT OPERATOR HELPER CPT-81942 Venipuncture Draw Fee 08:21:21 PHOTOSTAT OPERATOR HELPER CPT-00247 Venipuncture Draw Fee 08:30:20 PHOTOSTAT OPERATOR HELPER CPT-69979 Venipuncture Draw Fee 14:53:21 PHOTOSTAT OPERATOR HELPER CPT-83394 Venipuncture Draw Fee 09:40:56 PHOTOSTAT OPERATOR HELPER CPT-54092 Venipuncture Draw Fee 10:30:47 PHOTOSTAT OPERATOR HELPER CPT-18415 Venipuncture Draw Fee 10:46:17 PHOTOSTAT OPERATOR HELPER CPT-80364 Venipuncture Draw Fee 11:12:45 PHOTOSTAT OPERATOR HELPER CPT-44517 Venipuncture Draw Fee 09:53:33 PHOTOSTAT OPERATOR HELPER CPT-56782 Venipuncture Draw Fee 11:53:51 PHOTOSTAT OPERATOR HELPER CPT-60608 Venipuncture Draw Fee 10:33:50 PHOTOSTAT OPERATOR HELPER CPT-09718 Venipuncture Draw Fee 10:05:01 PHOTOSTAT OPERATOR HELPER CPT-67874 Venipuncture Draw Fee 14:32:52 PHOTOSTAT OPERATOR HELPER CPT-53505 Venipuncture Draw Fee 09:46:13 PHOTOSTAT OPERATOR HELPER CPT-87111 Venipuncture Draw Fee 11:34:27 PHOTOSTAT OPERATOR HELPER CPT-61500 Venipuncture Draw Fee 13:17:16 PHOTOSTAT OPERATOR HELPER CPT-44804 Venipuncture Draw Fee 12:05:39 CDT CPT-22506 Venipuncture Draw Fee 12:49:12 CDT CPT-72368 Venipuncture Draw Fee 12:37:18 CDT CPT-99190 Venipuncture Draw Fee 10:57:11 CDT CPT-40470 Venipuncture Draw Fee 13:47:40 CDT CPT-53275 Venipuncture Draw Fee 10:02:17 CDT CPT-15570 TB Tubersol 17:32:32 CDT CPT-OV Office Visit 16:21:53 CDT CPT-OV Office Visit 15:49:22 CDT CPT-OV Office Visit 17:16:31 CDT CPT-OV Office Visit 10:43:31 CDT
--- OUTSIDE RECORDS SUMMARY | 2019-02-09 12:31 | XMS REPORT | Clinical Summary ---
Author Author Renaldo, Florecita Munoz Organization [facility] [employer] Address Unknown Phone Unavailable Allergies, Adverse Reactions, Alerts Allergy Name Reaction Description Start Date Severity Status Pr ovider NKDA Critical Active Kylie MEEK RN Conditions or Problems Problem Name Problem Code Onset Date Status Entry Date Provider Comment Standard Description Annotate HYPERLIPIDEMIA 272.4 Active Knia Joshua APRN Other and unspecified hyperlipidemia HYPERTENSION [...] PhD Hyperpotassemia GERD 530.81 Resolved Kylie Yokum JUMP ROLL OPERATOR Esophageal reflux Health maintenance exam V70.0 Resolved Adolfo Yates MD Routine general medical examination at a health care facility Anemia 285.9 Resolved Kylie Holt JUMP ROLL OPERATOR Anemia, unspecified Personal history of malignant neoplasm of large intestine V10.05 Active Adam Yates MD Personal history of malignant neoplasm of large intestine Hypomagnesemia 275.2 Resolved Kylie Holt JUMP ROLL OPERATOR Disorders of magnesium metabolism Weakness 780.79 [...] Sebaceous cyst, scalp 706.2 Resolved Kylie Yokum JUMP ROLL OPERATOR Sebaceous cyst Cervical lymphadenopathy, anterior, left 785.6 Resolv ed Kylie Yokum JUMP ROLL OPERATOR Enlargement of lymph nodes Need for prophylactic vaccination and inoculation against in fluenza V04.81 Resolved Adam Yates MD Need for prophylactic vaccination and inoculation against influenza Preventive health care V70.0 Active Kylie Yokum JUMP ROLL OPERATOR Routine general medical examination at a health care facility Thyroid nodule, left 241.0 Active Kylie Yokum A PRN Nontoxic uninodular goiter Screening mammogram V76.12 Active Kylie Yokum AP RN Other screening mammogram Mandy 706.2 Resolved Kylie Yokum JUMP ROLL OPERATOR Sebaceous cyst Colon cancer, ascending 153.6 Resolved Kylie Yok um JUMP ROLL OPERATOR Malignant neoplasm of ascending colon Foot pain, left 729.5 Active Sulema Schwarz PAYROLL TECHNICIAN Pain in limb Splinter 919.6 Active Kylie Yokum JUMP ROLL OPERATOR Superficial foreign body (splinter) of other, multiple, and unspecified sites, without major open wound and without mention of infection Rash 782.1 Active Kylie Yokum JUMP ROLL OPERATOR R aurora and other nonspecific skin eruption Cyst 706.2 Active Kylie Yokum JUMP ROLL OPERATOR S ebaceous cyst ADENOCARCINOMA, COLON, 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 Dick Yates MD ABDOMINAL PAIN, GENERALIZED ICD-789.07 Inactive Hope Benavidez MD PhD FEVER UNSPECIFIED ICD-780.60 Inactive Hope cohn MD PhD UNSPECIFIED VENOUS INSUFFICIENCY ICD-459.81 [place] ctive Adam Yates MD ADENOCARCINOMA, 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 Inac tive Hope Benavidez MD PhD Hyperkalemia ICD-276.7 Inactive Hope Benavidez MD PhD ABDOMINAL PAIN, RIGHT LOWER QUADRANT ICD-789.03 Inactive Kina Joshua JUMP ROLL OPERATOR Health maintenance exam ICD-V70.0 Inactive Adolfo Yates MD Anemia ICD-285.9 Inactive Kylie Yopari JUMP ROLL OPERATOR 07/24 GERD ICD-530.81 Inactive Kylie Yokoliver JUMP ROLL OPERATOR 2015 Hypomagnesemia ICD-275.2 Inactive Kylie Yopari JUMP ROLL OPERATOR Colon cancer ICD-153.9 Inactive Adam luna MD Asymptomatic postmenopausal status (age-related) (natural) I CD-V49.81 Inactive Hope Benavidez MD PhD Weakness ICD-780.79 Inactive Hope Benavidez MD P hD Diarrhea, functional ICD-564.5 Inactive Selena Yates MD Dysuria ICD-788.1 Inactive Hope Benavidez MD PhD 201 05/19/01 Adenocarcinoma, ascending colon ICD-153.6 Inac abdelrahman Yates MD Sebaceous cyst, scalp ICD-706.2 Inactive Tracy Holt JUMP ROLL OPERATOR Cervical lymphadenopathy, anterior, left ICD-785.6 Inactive Kylie Holt AMY Need for prophylactic vaccination and inoculation against in fluenza ICD-V04.81 Inactive Adam Yates MD Mandy ICD-706.2 Inactive Kylie Escalonagabbioliver JUMP ROLL OPERATOR 07/20 Colon cancer, ascending ICD-153.6 Inactive Gabbi heck Yanet REYES Aftercare following surgery of the teeth,oral cavity a nd digestive system, NEC ICD-V58.75 Inactive Adam Yates MD Medication List Medication Instructions Start Date Stop Date Generic Name NDC Status Provider Patient Instruction VOLTAREN 1 % TRANSDERMAL GEL apply q 6-8 hour to left arm as needed for pain DICLOFENAC SODIUM 01416910239 Active Kylie Polapari REYES Active COQ10 100 MG ORAL CAPSULE 1 daily COENZYME Q10 844926 23667 Active LETY Nation Active VITAMIN D3 2000 UNIT ORAL CAPSULE Melaleuca-One daily CHOLECALCIFEROL 02074596357 Active Kylieshubham Holt APRN Active PROBIOTIC DAILY ORAL CAPSULE Take one daily PROBIO TIC PRODUCT 37967875172 Active Kylie Polapari REYES Active IRON 325 (65 Fe) MG ORAL TABLET 1 every other day FERROUS SULFATE 58065005146 No Longer Active Kylie Polagabbioliver AMY Active FLORANEX ORAL PACKET 1 pack three times daily, for bowel health LACTOBACILLUS 67171115142 No Longer Active Kylie Polagabbioliver AMY Active LOMOTIL 2.5-0.025 MG ORAL TABLET 1 tab by mouth prn 23/10/23 DIPHENOXYLATE-ATROPINE 94215007434 No Longer Active Kylie Yogabbioliver AMY Active MAGNESIUM GLUCONATE 250 MG ORAL TABLET 1 tab tid 23/10/23 MAGNESIUM GLUCONATE 85344380571 No Longer Active Kylie Lundum JUMP ROLL OPERATOR Active CYANOCOBALAMIN 1000 MCG/ML INJECTION SOLUTION 1 injection ev ruben 2 weeks CYANOCOBALAMIN 22583565671 No Longer Active Kylie Lund um JUMP ROLL OPERATOR Active ATENOLOL 25 MG ORAL TABLET 1/2 pill by mouth daily, fo r headaches, blood pressure ATENOLOL 55079226135 Active Kylie Lundum JUMP ROLL OPERATOR Active PROPRANOLOL HCL 80 MG ORAL TABLET 1 tab tue. and thur. PROPRANOLOL HCL 45107124885 No Longer Active Hope Benavidez MD PhD A ctive VITAMIN D3 4000 IU 1 tab 3 times daily VITAMIN D3 4000 IU No Longer Active Hope Benavidez MD PhD Active BACTRIM DS 800-160 MG ORAL TABLET 1 pill by mouth twice claudio y, for UTI SULFAMETHOXAZOLE-TRIMETHOPRIM 96296952686 No Longer Active Hope Benavidez MD PhD Active PROLIA 60 MG/ML SUBCUTANEOUS SOLUTION 1 shot every 6 months for osteoprosis DENOSUMAB 33168266114 Active Hope Benavidez MD PhD Active CALCIUM + D + K 750-500-40 MG-UNT-MCG ORAL TABLET 1 tab by m out twice daily CALCIUM-VITAMIN D-VITAMIN K 02432921360 Active Hope valdez MD PhD Active DAILY VALUE MULTIVITAMIN ORAL TABLET 1 tab by mouth twice daily 201 05/16/14 MULTIPLE VITAMIN 16820074535 Active Hope Benavidez MD PhD Acti ve FISH OIL 306 MG CAPS 1 tab by mouth three times daily OMEGA-3 FATTY ACIDS 45428567195 Active Hope Benavidez MD PhD Active LUTEIN 10 MG ORAL TABLET 1 tab daily LUTEIN 17003627 408 Active Hope Benavidez MD PhD Active TRIAMTERENE-HCTZ 37.5-25 MG ORAL TABLET 1 tab by mouth daily 10/22 TRIAMTERENE-HCTZ 76470188375 Active LETY Rossi Activ e CYCLOBENZAPRINE HCL 10 MG ORAL TABLET 1 tablet by mout h three times daily as needed for headaches CYCLOBENZAPRINE HCL 04588336531 No Longer Active Adam Yates MD Active OMEPRAZOLE 20 MG ORAL CAPSULE DELAYED RELEASE 1 tablet by [facility] daily for GERD OMEPRAZOLE 23204933281 No Longer Active Adam Yates MD Active ZOFRAN 8 MG ORAL TABLET 1 tab by mouth every 12 hours prn 4 ONDANSETRON HCL 23787256861 No Longer Active Adam Yates MD Active PHENADOZ 25 MG RECTAL SUPPOSITORY 1 every 4 hrs. PRN 2 PROMETHAZINE HCL 49703252556 No Longer Active Adam Yates MD A ctive POTASSIUM CHLORIDE 20 MEQ ORAL PACKET by mouth twice a day prn 2 POTASSIUM CHLORIDE 21544015655 No Longer Active Adam Carpenter MD Active PROMETHAZINE HCL 25 MG ORAL TABLET 1 Q. 4 hr. PRN PROMETHAZINE HCL 38154645416 No Longer Active Adam Yates MD Active INNOPRAN XL 120 MG ORAL CAPSULE EXTENDED RELEASE 24 HO UR Take one by mouth daily PROPRANOLOL HCL SR BEADS 72238198218 No Longer Active Adam Yates MD Active FLAGYL 500 MG ORAL TABLET 1 pill by mouth three times daily, for diarrhea METRONIDAZOLE 25567337152 No Longer Active Hope landers MD PhD Active DYAZIDE 37.5-25 MG ORAL CAPSULE 1 qd TRIA MTERENE-HCTZ 35811033756 No Longer Active Hope Benavidez MD PhD Active PROZAC 20 MG ORAL CAPSULE 1 q d FLUOXETINE HCL 09257460833 No Longer Active Hope Benavidez MD PhD Active SIMVASTATIN 40 MG ORAL TABLET 1 qd SIMVAS TATIN 69969655209 No Longer Active Adam Yates MD Active MELOXICAM 15 MG ORAL TABLET 1 qd MELOXICAM 83094114830 No Longer Active Adam Yates MD Active IMODIUM A-D 2 MG ORAL TABLET 2 onset at diarrhea and prn. LOPERAMIDE HCL 74421590858 Active Hope Benavidez MD PhD Active EXCEDRIN EXTRA STRENGTH 250-250-65 MG ORAL TABLET 1-2 q6h SC N headache [id number] 61301484306 Active Hope Benavidez MD PhD Active FLAGYL 500 MG ORAL TABLET 1 qid METRONIDAZOL E 58890222169 No Longer Active Adam Yates MD Active LEVAQUIN 750 MG ORAL TABLET 1 qd LEVOFLOXAC IN 51200227912 No Longer Active Adam Yates MD Active ADULT ASPIRIN LOW STRENGTH 81 MG ORAL TABLET DISINTEGRATING 1 qd ASPIRIN 99541777644 Active Hope Benavidez MD PhD Active LEVAQUIN 750 MG ORAL TABLET 1 qd LEVAQUIN 750 MG ORAL TABLET 895415 LEVOFLOXACIN Inactive FLAGYL 500 MG ORAL TABLET 1 qid FLAGYL 500 MG ORAL TABLET 339044 METRONIDAZOLE Inactive MELOXICAM 15 MG ORAL TABLET 1 qd MELOXICAM 15 MG ORAL TABLET 136756 MELOXICAM Inactive SIMVASTATIN 40 MG ORAL TABLET 1 qd SIMVASTATIN 40 MG ORAL TABLET 755398 SIMVASTATIN Inactive PROZAC 20 MG ORAL CAPSULE 1 q d PROZAC 20 MG ORAL CAPSULE 997593 FLUOXETINE HCL Inactive DYAZIDE 37.5-25 MG ORAL CAPSULE 1 qd 5 DYAZIDE 37.5-25 MG ORAL CAPSULE 876709 TRIAMTERENE-HCTZ Inactive INNOPRAN XL 120 MG ORAL CAPSULE EXTENDED RELEASE 24 HO UR Take one by mouth daily INNOPRAN XL 120 MG ORAL CAPSULE EXTENDED RELEASE 24 HOUR PROPRANOLOL HCL SR BEADS Inactive PROMETHAZINE HCL 25 MG ORAL TABLET 1 Q. 4 hr. PRN 2013 PROMETHAZINE HCL 25 MG ORAL TABLET 383440 PROMETHAZINE HCL Inactive POTASSIUM CHLORIDE 20 MEQ ORAL PACKET by mouth twice a day prn 2 POTASSIUM CHLORIDE 20 MEQ ORAL PACKET 8103222 POTASSIUM CHLORIDE Inactive PHENADOZ 25 MG RECTAL SUPPOSITORY 1 every 4 hrs. PRN 2 PHENADOZ 25 MG RECTAL SUPPOSITORY 760420 PROMETHAZINE HCL Inactive ZOFRAN 8 MG ORAL TABLET 1 tab by mouth every 12 hours prn 4 ZOFRAN 8 MG ORAL TABLET 810576 ONDANSETRON HCL Inactive OMEPRAZOLE 20 MG ORAL CAPSULE DELAYED RELEASE 1 tablet by mo uth daily for GERD OMEPRAZOLE 20 MG ORAL CAPSULE DELAYED RELEASE 19 8051 OMEPRAZOLE Inactive CYCLOBENZAPRINE HCL 10 MG ORAL TABLET 1 tablet by mout h three times daily as needed for headaches CYCLOBENZAPRINE HCL 10 MG ORAL TABLET 668971 CYCLOBENZAPRINE HCL Inactive VITAMIN D3 4000 IU 1 tab 3 times daily VITAMIN D3 4000 IU Inactive PROPRANOLOL HCL 80 MG ORAL TABLET 1 tab tue. and thur. PROPRANOLOL HCL 80 MG ORAL TABLET 414321 PROPRANOLOL HCL Inacti ve CYANOCOBALAMIN 1000 MCG/ML INJECTION SOLUTION 1 injection ev ruben 2 weeks CYANOCOBALAMIN 1000 MCG/ML INJECTION SOLUTION 30 9594 CYANOCOBALAMIN Inactive MAGNESIUM GLUCONATE 250 MG ORAL TABLET 1 tab tid 23/10/23 MAGNESIUM GLUCONATE 250 MG ORAL TABLET 257258 MAGNESIUM GLUCONATE Inactive LOMOTIL 2.5-0.025 MG ORAL TABLET 1 tab by mouth prn 20 23/10/23 LOMOTIL 2.5-0.025 MG ORAL TABLET 4323911 DIPHENOXYLATE-ATROPINE Inac tive FLORANEX ORAL PACKET 1 pack three times daily, for bowel health FLORANEX ORAL PACKET LACTOBACILLUS Inactive IRON 325 (65 Fe) MG ORAL TABLET 1 every other day 2015 IRON 325 (65 Fe) MG ORAL TABLET 705430 FERROUS SULFATE Inactive FLAGYL 500 MG ORAL TABLET 1 pill by mouth three times daily, for diarrhea FLAGYL 500 MG ORAL TABLET 026473 METRONIDAZOLE I nactive BACTRIM DS 800-160 MG ORAL TABLET 1 pill by mouth twice claudio y, for UTI BACTRIM DS 800-160 MG ORAL TABLET 902239 SULFAMETHOXAZOLE-TRIMETHOPRIM Inactive Advance Directives Directive Description Start [...] m g/g{creat} 0-29 sodium, serum 138 mmol/L 345-913 3565/12/15 potassium, serum 4.0 mmol/L 3.5-5.2 chloride, serum [...] CBC (INCLUDES DIFF/PLT)/6399 - Hematology mean corpuscular volume, RBC 94.4 fL 80.0-10 0.0 hematocrit, blood 44.2 % 35.0-45.0 hemoglobin, blood 14.9 g/dL 11.7-15.5 erythrocyte (RBC) count 4.68 MILLION/UL 10*6/mm3 3.80-5. 10 leukocyte count, blood 6.3 THOUSAND/UL 10*3/mm3 3.8-10.8 mean platelet volume 8.9 fL 7.5-12.5 platelet count 157 THOUSAND/UL 10*3/mm3 755-235 7904/04/20 red blood cell distribution width 13.5 % 11 .0-15.0 mean corpuscular hemoglobin concentration, RBC 33.7 G/DL % 32.0-36.0 mean corpuscular hemoglobin, RBC 31.8 pg 27. 0-33.0 Lab Report: CEA - Serology carcinoembryonic antigen 0.9 ng/mL carcinoembryonic antigen 0.6 ng/mL Lab Report: Comp. Metabolic Panel - Chem istry sodium, serum 142 mmol/L 581-791 9757/04/19 carbon dioxide, venous blood 30.2 mmol/L 21.0-32 [...] 0.00-1.00 Encounters Code Encounter Date Provider Facility CPT-19112 Level 3 Est. Patient 08:15:24 COMMERCIAL DRIVER'S LICENSE DRIVER Kylie Lund [facility] CPT-74016 Level 2 Est. Patient 14:27:16 COMMERCIAL DRIVER'S LICENSE DRIVER Kylie Lund [facility] CPT-35181 Level 3 Est. Patient 17:54:48 CDT [facility] CPT-69777 Level 3 Est. Patient 16:26:30 CDT Kina blackmon [facility] CPT-92845 Level 3 New Patient 16:22:01 COMMERCIAL DRIVER'S LICENSE DRIVER Adam Yates MD [facility] CPT-98038 Level 4 Est. Patient 17:00:48 CDT Kylie Lund [facility] CPT-30314 Level 3 Est. Patient 13:15:54 CDT Kylie Lund [facility] CPT-33015 Level 3 Est. Patient 09:10:11 CDT Kylie Lund [facility] CPT-50831 Level 4 Est. Patient 12:08:30 COMMERCIAL DRIVER'S LICENSE DRIVER Hope cohn MD [facility] CPT-44817 Level 4 Est. Patient 19:08:42 COMMERCIAL DRIVER'S LICENSE DRIVER Hope cohn MD [facility] CPT-72827 Level 4 Est. Patient 20:04:51 CDT Hope cohn MD [facility] CPT-75710 Level 3 New Patient 01:46:11 COMMERCIAL DRIVER'S LICENSE DRIVER Hope landers MD [facility] Procedures Code Procedure Name Date Entry Date Standard Desc ription CPT-54670 Venipuncture Draw Fee 10:59:04 CDT CPT-15179 CMP - LAB USE ONLY 10:59:04 CDT CPT-60452 CBC with Diff - LAB USE ONLY 10:59:03 CDT 2 CPT-J0897 Prolia 60 mg 15:46:54 COMMERCIAL DRIVER'S LICENSE DRIVER CPT-54542 Abx/Therapy Injection 15:46:54 COMMERCIAL DRIVER'S LICENSE DRIVER CPT-60264 Microalbumin - LAB USE ONLY 09:41:32 COMMERCIAL DRIVER'S LICENSE DRIVER 20 23/01/15 CPT-69883 Free T4 - LAB USE ONLY 09:41:32 COMMERCIAL DRIVER'S LICENSE DRIVER CPT-17634 TSH - LAB USE ONLY 09:41:32 COMMERCIAL DRIVER'S LICENSE DRIVER CPT-29124 BMP - LAB USE ONLY 09:41:32 COMMERCIAL DRIVER'S LICENSE DRIVER CPT-17306 Venipuncture Draw Fee 09:41:32 COMMERCIAL DRIVER'S LICENSE DRIVER CPT-31072 First Vx - Ix admin for Medicare patients 11:19:30 CDT CPT-00302 Fluzone High-Dose Intramuscular Suspension 12/07 11:19:30 CDT CPT-J0897 Prolia 60 mg 14:55:42 CDT CPT-25986 Abx/Therapy Injection 14:55:42 CDT CPT-93108 Bone Density - XRAY USE ONLY 10:27:12 CDT 2 CPT-G0439 Subsequent Annual Wellness Exam 17:54:53 CDT CPT-92992 Foot, left, comp min 3V - XRAY USE ONLY 12:22:49 CDT CPT-G0009 Administration of Pneumococcal Vaccine 3 12:18:00 CDT CPT-16085 Pneumovax 23 Injection Injectable 25 MCG /0.5ML 12:18:00 CDT CPT-J0897 Prolia 60 mg 14:14:16 COMMERCIAL DRIVER'S LICENSE DRIVER CPT-73272 Abx/Therapy Injection 14:14:15 COMMERCIAL DRIVER'S LICENSE DRIVER CPT-29107 Lipid - LAB USE ONLY 10:01:52 COMMERCIAL DRIVER'S LICENSE DRIVER 2 CPT-60110 Calcium - LAB USE ONLY 10:01:51 COMMERCIAL DRIVER'S LICENSE DRIVER CPT-90643 Venipuncture Draw Fee 10:01:51 COMMERCIAL DRIVER'S LICENSE DRIVER CPT-LR Lesion Removal 16:22:01 COMMERCIAL DRIVER'S LICENSE DRIVER CPT-03367 TSH - LAB USE ONLY 14:26:02 CDT CPT-14796 CMP - LAB USE ONLY 14:26:01 CDT CPT-29326 CBC with Diff - LAB USE ONLY 14:26:01 CDT 2 CPT-98474 Venipuncture Draw Fee 14:26:01 CDT CPT-87590 First Vx - Ix admin for Medicare patients 13:27:08 CDT CPT-74439 Fluzone High-Dose Intramuscular Suspension 11/26 13:27:08 CDT CPT-G0438 Initial Annual Wellness Exam 14:19:57 CD T CPT-G0009 Administration of Pneumococcal Vaccine 9 11:36:25 CDT CPT-54376 Prevnar 13 Intramuscular Suspension 1 1:36:25 CDT CPT-09968 Prevnar 13 Intramuscular Suspension 1 0:40:58 CDT CPT-J0897 Prolia 60 mg 10:37:16 CDT CPT-59360 Abx/Therapy Injection 10:37:16 CDT CPT-J0897 Prolia 60 mg 16:09:34 COMMERCIAL DRIVER'S LICENSE DRIVER CPT-J0897 Prolia 60 mg 11:10:35 COMMERCIAL DRIVER'S LICENSE DRIVER CPT-11390 Abx/Therapy Injection 11:10:35 COMMERCIAL DRIVER'S LICENSE DRIVER CPT-000 Give Appropriate Flu Vaccine 17:01:15 COMMERCIAL DRIVER'S LICENSE DRIVER 2 CPT-98421 Fluzone High Dose (65+) 15:03:08 COMMERCIAL DRIVER'S LICENSE DRIVER 02/15 CPT-29620 Immunization Single Admin 15:03:08 COMMERCIAL DRIVER'S LICENSE DRIVER 2014 CPT-OV Office Visit 15:58:06 CDT CPT-J0897 Prolia 60 mg 08:45:38 CDT CPT-34531 Abx/Therapy Injection 08:45:38 CDT CPT-J3420 Vitamin B12 1000mcg (Cyanocobalamin) 09:26:20 COMMERCIAL DRIVER'S LICENSE DRIVER CPT-52579 Abx/Therapy Injection 09:26:20 COMMERCIAL DRIVER'S LICENSE DRIVER CPT-J3420 Vitamin B12 1000mcg (Cyanocobalamin) 09:44:40 COMMERCIAL DRIVER'S LICENSE DRIVER CPT-77870 Abx/Therapy Injection 09:44:40 COMMERCIAL DRIVER'S LICENSE DRIVER CPT-J3420 Vitamin B12 1000mcg (Cyanocobalamin) 09:15:54 COMMERCIAL DRIVER'S LICENSE DRIVER CPT-90377 Abx/Therapy Injection 09:15:54 COMMERCIAL DRIVER'S LICENSE DRIVER CPT-J3420 Vitamin B12 1000mcg (Cyanocobalamin) 09:46:44 COMMERCIAL DRIVER'S LICENSE DRIVER CPT-19153 Abx/Therapy Injection 09:46:44 COMMERCIAL DRIVER'S LICENSE DRIVER CPT-J3420 Vitamin B12 1000mcg (Cyanocobalamin) 09:47:34 COMMERCIAL DRIVER'S LICENSE DRIVER CPT-90866 Abx/Therapy Injection 09:47:34 COMMERCIAL DRIVER'S LICENSE DRIVER CPT-J3420 Vitamin B12 1000mcg (Cyanocobalamin) 14:35:50 COMMERCIAL DRIVER'S LICENSE DRIVER CPT-J3420 Vitamin B12 1000mcg (Cyanocobalamin) 09:25:05 COMMERCIAL DRIVER'S LICENSE DRIVER CPT-72633 Abx/Therapy Injection 09:25:05 COMMERCIAL DRIVER'S LICENSE DRIVER CPT-G0008 Administration of Influenza Virus Vaccine 13:36:47 CDT CPT-68993 Fluzone High-Dose Intramuscular Suspension 11/15 13:36:47 CDT CPT-J0897 Prolia 60 mg 08:50:41 CDT CPT-47140 Abx/Therapy Injection 08:50:41 CDT CPT-25747 Bone Density 12:06:12 CDT CPT-60432 Bone Density 08:54:40 CDT CPT-OV Office Visit 15:37:02 CDT CPT-14430 Postop F/U Visit 15:47:49 CDT CPT-98480 Postop F/U Visit 15:21:02 CDT CPT-TCM Transitional Care Mgmt-High 07:52:27 CDT 20 20/06/01 CPT-18428 Venipuncture Draw Fee 13:51:18 CDT CPT-26653 Venipuncture Draw Fee 10:14:55 COMMERCIAL DRIVER'S LICENSE DRIVER CPT-02189 Venipuncture Draw Fee 13:39:45 COMMERCIAL DRIVER'S LICENSE DRIVER CPT-OV Office Visit 15:11:22 COMMERCIAL DRIVER'S LICENSE DRIVER CPT-80115 Venipuncture Draw Fee 09:20:49 COMMERCIAL DRIVER'S LICENSE DRIVER CPT-85026 Venipuncture Draw Fee 16:52:15 COMMERCIAL DRIVER'S LICENSE DRIVER CPT-71445 Venipuncture Draw Fee 10:37:24 COMMERCIAL DRIVER'S LICENSE DRIVER CPT-17346 Venipuncture Draw Fee 08:21:21 COMMERCIAL DRIVER'S LICENSE DRIVER CPT-14025 Venipuncture Draw Fee 08:30:20 COMMERCIAL DRIVER'S LICENSE DRIVER CPT-28003 Venipuncture Draw Fee 14:53:21 COMMERCIAL DRIVER'S LICENSE DRIVER CPT-61827 Venipuncture Draw Fee 09:40:56 COMMERCIAL DRIVER'S LICENSE DRIVER CPT-89803 Venipuncture Draw Fee 10:30:47 COMMERCIAL DRIVER'S LICENSE DRIVER CPT-35600 Venipuncture Draw Fee 10:46:17 COMMERCIAL DRIVER'S LICENSE DRIVER CPT-91047 Venipuncture Draw Fee 11:12:45 COMMERCIAL DRIVER'S LICENSE DRIVER CPT-81176 Venipuncture Draw Fee 09:53:33 COMMERCIAL DRIVER'S LICENSE DRIVER CPT-11119 Venipuncture Draw Fee 11:53:51 COMMERCIAL DRIVER'S LICENSE DRIVER CPT-88241 Venipuncture Draw Fee 10:33:50 COMMERCIAL DRIVER'S LICENSE DRIVER CPT-77111 Venipuncture Draw Fee 10:05:01 COMMERCIAL DRIVER'S LICENSE DRIVER CPT-13511 Venipuncture Draw Fee 14:32:52 COMMERCIAL DRIVER'S LICENSE DRIVER CPT-23505 Venipuncture Draw Fee 09:46:13 COMMERCIAL DRIVER'S LICENSE DRIVER CPT-58059 Venipuncture Draw Fee 11:34:27 COMMERCIAL DRIVER'S LICENSE DRIVER CPT-02302 Venipuncture Draw Fee 13:17:16 COMMERCIAL DRIVER'S LICENSE DRIVER CPT-18987 Venipuncture Draw Fee 12:05:39 CDT CPT-93534 Venipuncture Draw Fee 12:49:12 CDT CPT-33914 Venipuncture Draw Fee 12:37:18 CDT CPT-50180 Venipuncture Draw Fee 10:57:11 CDT CPT-70805 Venipuncture Draw Fee 13:47:40 CDT CPT-01289 Venipuncture Draw Fee 10:02:17 CDT CPT-63683 TB Tubersol 17:32:32 CDT CPT-OV Office Visit 16:21:53 CDT CPT-OV Office Visit 15:49:22 CDT CPT-OV Office Visit 17:16:31 CDT CPT-OV Office Visit 10:43:31 CDT
--- OUTSIDE RECORDS SUMMARY | 2019-02-09 12:32 | XMS REPORT | Clinical Summary ---
Author Author Renaldo, Florecita Munoz Organization [facility] [employer] Address Unknown Phone Unavailable Allergies, Adverse Reactions, [...] PhD Hyperpotassemia GERD 530.81 Resolved Kylie Yokum [employer] Esophageal reflux Health maintenance exam V70.0 Resolved Adolfo Yates MD Routine general medical examination at a health care facility Anemia 285.9 Resolved Kylie Holt [employer] Anemia, unspecified Personal history of malignant neoplasm of large intestine V10.05 Active Adam Yates MD Personal history of malignant neoplasm of large intestine Hypomagnesemia 275.2 Resolved Kylie Holt [employer] Disorders of magnesium metabolism Weakness 780.79 [...] Sebaceous cyst, scalp 706.2 Resolved Kylie Yokum [employer] Sebaceous cyst Cervical lymphadenopathy, anterior, left 785.6 Resolv ed Kylie Yokum [employer] Enlargement of lymph nodes Need for prophylactic vaccination and inoculation against in fluenza V04.81 Resolved Adam Yates MD Need for prophylactic vaccination and inoculation against influenza Preventive health care V70.0 Active Kylie Yokum [employer] Routine general medical examination at a health care facility Thyroid nodule, left 241.0 Active Kylie Yokum A PRN Nontoxic uninodular goiter Screening mammogram V76.12 Active Kylie Yokum AP RN Other screening mammogram Mandy 706.2 Resolved Kylie Yokum [employer] Sebaceous cyst Colon cancer, ascending 153.6 Resolved Kylie Yok um [employer] Malignant neoplasm of ascending colon Foot pain, left 729.5 Active 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 in limb Splinter 919.6 Active Kylie Yokum [employer] Superficial foreign body (splinter) of other, multiple, and unspecified sites, without major open wound and without mention of infection ABDOMINAL PAIN, RIGHT LOWER QUADRANT ICD-789.03 Inactive Kina Joshua [employer] ADENOCARCINOMA, COLON, 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 Dick Yates MD ABDOMINAL PAIN, GENERALIZED ICD-789.07 Inactive Hope Benavidez MD PhD FEVER UNSPECIFIED ICD-780.60 Inactive Hope cohn MD PhD UNSPECIFIED VENOUS INSUFFICIENCY ICD-459.81 Elda ctive Adam Yates MD ADENOCARCINOMA, 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 Inac tive Hope Benavidez MD PhD Hyperkalemia ICD-276.7 Inactive Hope Benavidez MD PhD GERD ICD-530.81 Inactive Kylie Holt [employer] 2015 Health maintenance exam ICD-V70.0 Inactive Adolfo Yates MD Anemia ICD-285.9 Inactive Kylie Holt [employer] 07/24 Hypomagnesemia ICD-275.2 Inactive Kylie Holt [employer] Weakness ICD-780.79 Inactive Hope Benavidez MD [...] Sebaceous cyst, scalp ICD-706.2 Inactive Tracy Holt [employer] Cervical lymphadenopathy, anterior, left ICD-785.6 Inactive Kylie Holt [employer] Need for prophylactic vaccination and inoculation against in fluenza ICD-V04.81 Inactive Adam Yates MD Mandy ICD-706.2 Inactive Kylie Lundum [employer] 07/20 Colon cancer, ascending ICD-153.6 Inactive K umang Holt [employer] Colon cancer ICD-153.9 Inactive Adam luna MD Medication List Medication Instructions Start Date Stop Date Generic Name NDC Status Provider Patient Instruction COQ10 100 MG ORAL CAPS 1 daily COENZYME Q10 012365250 20 Active LETY Nation Active VITAMIN D3 2000 UNIT ORAL CAPS Melaleuca-One daily CHOLECALCIFEROL 32983836873 Active Kylie Lundum [employer] Active PROBIOTIC DAILY ORAL CAPS Take one daily PROBIOTIC PRODUCT 20530297000 Active Kylie Lundum [employer] Active IRON 325 (65 FE) MG TABS 1 every other day FERR OUS SULFATE 32016810966 No Longer Active Kylie Lundum [employer] Active FLORANEX PACK 1 pack three times daily, for bowel health LACTOBACILLUS 76235678329 No Longer Active Kylie Lundum [employer] Active LOMOTIL 2.5-0.025 MG TABS 1 tab by mouth prn 4 DIPHENOXYLATE-ATROPINE 64445943899 No Longer Active Kylie Kevonum [employer] Active MAGNESIUM GLUCONATE 250 MG TABS 1 tab tid 4 MAGNESIUM GLUCONATE 74344449768 No Longer Active Kylie Yokum [employer] Active CYANOCOBALAMIN 1000 MCG/ML INJ SOLN 1 injection every 2 weeks 20 20/01/03 CYANOCOBALAMIN 15471641114 No Longer Active Kylie Lundum [employer] Active ATENOLOL 25 MG ORAL TABS 1/2 pill by mouth daily, for headac hes, blood pressure ATENOLOL 11921204453 Active Kylieshubham Holt [employer] Active PROPRANOLOL HCL 80 MG TABS 1 tab tue. and thur. 04/10 PROPRANOLOL HCL 14990689953 No Longer Active Hope Benavidez MD PhD A ctive VITAMIN D3 4000 IU 1 tab 3 times daily VITAMIN D3 4000 IU No Longer Active Hope Benavidez MD PhD Active BACTRIM DS 800-160 MG TABS 1 pill by mouth twice daily, for UTI SULFAMETHOXAZOLE-TRIMETHOPRIM 66069523791 No Longer Active A attila Benavidez MD PhD Active PROLIA 60 MG/ML SOLN 1 shot every 6 months for osteoprosis DENOSUMAB 50672009898 Active Hope Benavidez MD PhD Active CALCIUM + D + K 750-500-40 MG-UNT-MCG TABS 1 tab by mouth tw ice daily CALCIUM-VITAMIN D-VITAMIN K 10837461756 Active Hope landers MD PhD Active DAILY VALUE MULTIVITAMIN TABS 1 tab by mouth twice daily MULTIPLE VITAMIN 35333532976 Active Hope Benavidez MD PhD Active FISH OIL 306 MG CAPS 1 tab by mouth three times daily OMEGA-3 FATTY ACIDS 45400532245 Active Hope Benavidez MD PhD Active LUTEIN 10 MG TABS 1 tab daily LUTEIN 45082926304 Act cash Hope Benavidez MD PhD Active TRIAMTERENE-HCTZ 37.5-25 MG TABS 1 tab by mouth daily TRIAMTERENE-HCTZ 57030970593 Active Kylie Holt APRN Active CYCLOBENZAPRINE HCL 10 MG TABS 1 tablet by mouth three times daily as needed for headaches CYCLOBENZAPRINE HCL 80325929022 No Longe r Active Adam Yates MD Active OMEPRAZOLE 20 MG CPDR 1 tablet by mouth daily for GERD OMEPRAZOLE 88300082712 No Longer Active Adam Yates MD A ctive ZOFRAN 8 MG TABS 1 tab by mouth every 12 hours prn 201 05/16/09 ONDANSETRON HCL 05422032147 No Longer Active Adam Yates MD Active PHENADOZ 25 MG SUPP 1 every 4 hrs. PRN PROMETHA ZINE HCL 38253697293 No Longer Active Adam Yates MD Active POTASSIUM CHLORIDE 20 MEQ PACK by mouth twice a day prn POTASSIUM CHLORIDE 52953321999 No Longer Active Adam Yates MD Active PROMETHAZINE HCL 25 MG TABS 1 Q. 4 hr. PRN PROM ETHAZINE HCL 35935557728 No Longer Active Adam Yates MD Active INNOPRAN XL 120 MG [id number] Take one by mouth daily 2 PROPRANOLOL HCL SR BEADS 70291112833 No Longer Active Adam Yates MD A ctive FLAGYL 500 MG TABS 1 pill by mouth three times daily, for diarrh ea METRONIDAZOLE 88601807418 No Longer Active Hope Benavidez MD PhD Active DYAZIDE 37.5-25 MG CAPS 1 qd TRIAMTERENE-HC TZ 44576352153 No Longer Active Hope Benavidez MD PhD Active PROZAC 20 MG CAPS 1 q d FLUOXETINE HCL 10200 604046 No Longer Active Hope Benavidez MD PhD Active SIMVASTATIN 40 MG TABS 1 qd SIMVASTATIN 004 61117907 No Longer Active Adam Yates MD Active MELOXICAM 15 MG TABS 1 qd MELOXICAM 9519000 5594 No Longer Active Adam Yates MD Active IMODIUM A-D 2 MG TABS 2 onset at diarrhea and prn. LOPERAMIDE HCL 11764709346 Active Hope Benavidez MD PhD Active EXCEDRIN EXTRA STRENGTH 250-250-65 MG TABS 1-2 q6h PRN headache 201 04/16/21 [id number] 24844825701 Active Hope Benavidez MD PhD Active FLAGYL 500 MG TABS 1 qid METRONIDAZOLE 24244 829923 No Longer Active Adam Yates MD Active LEVAQUIN 750 MG TABS 1 qd LEVOFLOXACIN 5486 5753599 No Longer Active Adam Yates MD Active ADULT ASPIRIN LOW STRENGTH 81 MG TBDP 1 qd A SPIRIN 96744647801 Active Hope Benavidez MD PhD Active LEVAQUIN 750 MG TABS 1 qd LEVAQUIN 750 MG T ABS 228856 LEVOFLOXACIN Inactive FLAGYL 500 MG TABS 1 qid FLAGYL 500 MG TABS 487867 METRONIDAZOLE Inactive MELOXICAM 15 MG TABS 1 qd MELOXICAM 15 MG T ABS 590071 MELOXICAM Inactive SIMVASTATIN 40 MG TABS 1 qd SIMVASTATIN 40 MG TABS 105206 SIMVASTATIN Inactive PROZAC 20 MG CAPS 1 q d PROZAC 20 MG CAPS 31 0385 FLUOXETINE HCL Inactive DYAZIDE 37.5-25 MG CAPS 1 qd DYAZIDE 37.5 -25 MG CAPS 949580 TRIAMTERENE-HCTZ Inactive INNOPRAN XL 120 MG [id number] Take one by mouth daily 2 INNOPRAN XL 120 MG [id number] PROPRANOLOL HCL SR BEADS Inactive PROMETHAZINE HCL 25 MG TABS 1 Q. 4 hr. PRN PROMETHAZINE HCL 25 MG TABS 881491 PROMETHAZINE HCL Inactive POTASSIUM CHLORIDE 20 MEQ PACK by mouth twice a day prn POTASSIUM CHLORIDE 20 MEQ PACK 0087876 POTASSIUM CHLORIDE Inactive PHENADOZ 25 MG SUPP 1 every 4 hrs. PRN PHENADOZ 2 5 MG SUPP 033717 PROMETHAZINE HCL Inactive ZOFRAN 8 MG TABS 1 tab by mouth every 12 hours prn 201 05/16/09 ZOFRAN 8 MG TABS 635892 ONDANSETRON HCL Inactive OMEPRAZOLE 20 MG CPDR 1 tablet by mouth daily for GERD OMEPRAZOLE 20 MG CPDR 806263 OMEPRAZOLE Inactive CYCLOBENZAPRINE HCL 10 MG TABS 1 tablet by mouth three times daily as needed for headaches CYCLOBENZAPRINE HCL 10 MG TABS 442412 CYCLOBENZAPRINE HCL Inactive VITAMIN D3 4000 IU 1 tab 3 times daily VITAMIN D3 4000 IU Inactive PROPRANOLOL HCL 80 MG TABS 1 tab tue. and thur. 04/10 PROPRANOLOL HCL 80 MG TABS 482707 PROPRANOLOL HCL Inactive CYANOCOBALAMIN 1000 MCG/ML INJ SOLN 1 injection every 2 weeks 20 20/01/03 CYANOCOBALAMIN 1000 MCG/ML INJ SOLN 670730 CYANOCOBALAM IN Inactive MAGNESIUM GLUCONATE 250 MG TABS 1 tab tid 4 MAGNESIUM GLUCONATE 250 MG TABS 172605 MAGNESIUM GLUCONATE Inactive LOMOTIL 2.5-0.025 MG TABS 1 tab by mouth prn 4 LOMOTIL 2.5- 0.025 MG TABS 0045309 DIPHENOXYLATE-ATROPINE Inactive FLORANEX PACK 1 pack three times daily, for bowel health FLORANEX PACK LACTOBACILLUS Inactive IRON 325 (65 FE) MG TABS 1 every other day IRON 325 (65 FE) MG TABS 277524 FERROUS SULFATE Inactive FLAGYL 500 MG TABS 1 pill by mouth three times daily, for diarrh ea FLAGYL 500 MG TABS 344435 METRONIDAZOLE Inactive BACTRIM DS 800-160 MG TABS 1 pill by mouth twice daily, for UTI BACTRIM DS 800-160 MG TABS 126549 SULFAMETHOXAZOLE-TRIM ETHOPRIM Inactive Advance Directives Directive Description [...] 11 .0-15.0 platelet count 157 THOUSAND/UL 10*3/mm3 037-321 8449/04/20 mean platelet volume 8.9 fL 7.5-12.5 Lab Report: CBC W/DIFF, Comp. Metabolic Panel, Thyroid Stimulating Hormo ... - Chemistry sodium, serum 139 mmol/L 165-451 8232/10/20 carbon dioxide, venous blood 32.2 mmol/L 21.0-32 [...] - Chemi stry cholesterol, serum 200 mg/dL 548-713 9822/11/22 triglyceride, serum, fasting 129 mg/dL 30-200 HDL cholesterol, serum 56 mg/dL 32-96 LDL cholesterol, serum 118 mg/dL 0-130 calcium, serum 9.0 mg/dL 8.5-10.1 Lab Report: MicroAlb Random w/creat/6517 - Urinalysis microalbumin/total urine volume 8 mg/L Units converted. See lab report for original value. microalbumin/creatinine ratio, urine 15 MCG/MG CREAT mg/L <30 Encounters Code Encounter Date Provider Facility CPT-83727 Level 3 Est. Patient 17:54:48 CDT Kylie boyd [facility] CPT-02101 Level 3 Est. Patient 16:26:30 CDT Kina blackmon [facility] CPT-13708 Level 3 New Patient 16:22:01 ASSEMBLY MACHINE TENDER Adam Yates MD [facility] CPT-21940 Level 4 Est. Patient 17:00:48 CDT Kylie Lund [facility] CPT-57033 Level 3 Est. Patient 13:15:54 CDT Kylie Lund [facility] CPT-19663 Level 3 Est. Patient 09:10:11 CDT Kylie Kevon [facility] CPT-00863 Level 4 Est. Patient 12:08:30 ASSEMBLY MACHINE TENDER Hope cohn MD [facility] CPT-29467 Level 4 Est. Patient 19:08:42 ASSEMBLY MACHINE TENDER Hope cohn MD [facility] CPT-52531 Level 4 Est. Patient 20:04:51 CDT Hope cohn MD [facility] CPT-33341 Level 3 New Patient 01:46:11 ASSEMBLY MACHINE TENDER Hope landers MD PhD [facility] Procedures Code Procedure Name Date Entry Date Standard Desc ription CPT-G0439 [facility] Annual Wellness Exam 17:54:53 CDT CPT-24276 Foot, left, comp min 3V - XRAY USE ONLY 12:22:49 CDT CPT-G0009 Administration of Pneumococcal Vaccine 3 12:18:00 CDT CPT-31104 Pneumovax 23 Injection Injectable 25 MCG /0.5ML 12:18:00 CDT CPT-J0897 Prolia 60 mg 14:14:16 [employer]SEMBLY MACHINE TENDER CPT-26653 Abx/Therapy Injection 14:14:15 [employer]SEMBLY MACHINE TENDER CPT-03514 Lipid - LAB USE ONLY 10:01:52 ASSEMBLY MACHINE TENDER 2 CPT-70493 Calcium - LAB USE ONLY 10:01:51 ASSEMBLY MACHINE TENDER CPT-07594 Venipuncture Draw Fee 10:01:51 ASSEMBLY MACHINE TENDER CPT-LR Lesion Removal 16:22:01 ASSEMBLY MACHINE TENDER CPT-77270 TSH - LAB USE ONLY 14:26:02 CDT CPT-76057 CMP - LAB USE ONLY 14:26:01 CDT CPT-46939 CBC with Diff - LAB USE ONLY 14:26:01 CDT 2 CPT-21832 Venipuncture Draw Fee 14:26:01 CDT CPT-62561 First Vx - Ix admin for Medicare patients 13:27:08 CDT CPT-88365 Fluzone High-Dose Intramuscular Suspension 11/26 13:27:08 CDT CPT-G0438 Initial Annual Wellness Exam 14:19:57 CD T CPT-G0009 Administration of Pneumococcal Vaccine 9 11:36:25 CDT CPT-78999 Prevnar 13 Intramuscular Suspension 1 1:36:25 CDT CPT-93125 Prevnar 13 Intramuscular Suspension 1 0:40:58 CDT CPT-J0897 Prolia 60 mg 10:37:16 CDT CPT-00126 Abx/Therapy Injection 10:37:16 CDT CPT-J0897 Prolia 60 mg 16:09:34 ASSEMBLY MACHINE TENDER CPT-J0897 Prolia 60 mg 11:10:35 ASSEMBLY MACHINE TENDER CPT-95189 Abx/Therapy Injection 11:10:35 ASSEMBLY MACHINE TENDER CPT-000 Give Appropriate Flu Vaccine 17:01:15 ASSEMBLY MACHINE TENDER 2 CPT-05320 Fluzone High Dose (65+) 15:03:08 ASSEMBLY MACHINE TENDER 02/15 CPT-97661 Immunization Single Admin 15:03:08 ASSEMBLY MACHINE TENDER 2014 CPT-OV Office Visit 15:58:06 CDT CPT-J0897 Prolia 60 mg 08:45:38 CDT CPT-21475 Abx/Therapy Injection 08:45:38 CDT CPT-J3420 Vitamin B12 1000mcg (Cyanocobalamin) 09:26:20 ASSEMBLY MACHINE TENDER CPT-08428 Abx/Therapy Injection 09:26:20 ASSEMBLY MACHINE TENDER CPT-J3420 Vitamin B12 1000mcg (Cyanocobalamin) 09:44:40 ASSEMBLY MACHINE TENDER CPT-76565 Abx/Therapy Injection 09:44:40 ASSEMBLY MACHINE TENDER CPT-J3420 Vitamin B12 1000mcg (Cyanocobalamin) 09:15:54 ASSEMBLY MACHINE TENDER CPT-41799 Abx/Therapy Injection 09:15:54 ASSEMBLY MACHINE TENDER CPT-J3420 Vitamin B12 1000mcg (Cyanocobalamin) 09:46:44 ASSEMBLY MACHINE TENDER CPT-14452 Abx/Therapy Injection 09:46:44 ASSEMBLY MACHINE TENDER CPT-J3420 Vitamin B12 1000mcg (Cyanocobalamin) 09:47:34 ASSEMBLY MACHINE TENDER CPT-61209 Abx/Therapy Injection 09:47:34 ASSEMBLY MACHINE TENDER CPT-J3420 Vitamin B12 1000mcg (Cyanocobalamin) 14:35:50 ASSEMBLY MACHINE TENDER CPT-J3420 Vitamin B12 1000mcg (Cyanocobalamin) 09:25:05 ASSEMBLY MACHINE TENDER CPT-38547 Abx/Therapy Injection 09:25:05 ASSEMBLY MACHINE TENDER CPT-G0008 Administration of Influenza Virus Vaccine 13:36:47 CDT CPT-23908 Fluzone High-Dose Intramuscular Suspension 11/15 13:36:47 CDT CPT-J0897 Prolia 60 mg 08:50:41 CDT CPT-06423 Abx/Therapy Injection 08:50:41 CDT CPT-24229 Bone Density 12:06:12 CDT CPT-27457 Bone Density 08:54:40 CDT CPT-OV Office Visit 15:37:02 CDT CPT-77433 Postop F/U Visit 15:47:49 CDT CPT-82961 Postop F/U Visit 15:21:02 CDT CPT-[facility] Transitional Care Mgmt-High 07:52:27 CDT 20 20/06/01 CPT-01014 Venipuncture Draw Fee 13:51:18 CDT CPT-29922 Venipuncture Draw Fee 10:14:55 ASSEMBLY MACHINE TENDER CPT-27582 Venipuncture Draw Fee 13:39:45 ASSEMBLY MACHINE TENDER CPT-OV Office Visit 15:11:22 ASSEMBLY MACHINE TENDER CPT-15018 Venipuncture Draw Fee 09:20:49 ASSEMBLY MACHINE TENDER CPT-40779 Venipuncture Draw Fee 16:52:15 ASSEMBLY MACHINE TENDER CPT-64901 Venipuncture Draw Fee 10:37:24 ASSEMBLY MACHINE TENDER CPT-72741 Venipuncture Draw Fee 08:21:21 ASSEMBLY MACHINE TENDER CPT-12186 Venipuncture Draw Fee 08:30:20 ASSEMBLY MACHINE TENDER CPT-02315 Venipuncture Draw Fee 14:53:21 ASSEMBLY MACHINE TENDER CPT-96869 Venipuncture Draw Fee 09:40:56 ASSEMBLY MACHINE TENDER CPT-66767 Venipuncture Draw Fee 10:30:47 ASSEMBLY MACHINE TENDER CPT-94759 Venipuncture Draw Fee 10:46:17 ASSEMBLY MACHINE TENDER CPT-15388 Venipuncture Draw Fee 11:12:45 ASSEMBLY MACHINE TENDER CPT-10954 Venipuncture Draw Fee 09:53:33 ASSEMBLY MACHINE TENDER CPT-06452 Venipuncture Draw Fee 11:53:51 ASSEMBLY MACHINE TENDER CPT-36516 Venipuncture Draw Fee 10:33:50 ASSEMBLY MACHINE TENDER CPT-49014 Venipuncture Draw Fee 10:05:01 ASSEMBLY MACHINE TENDER CPT-14400 Venipuncture Draw Fee 14:32:52 ASSEMBLY MACHINE TENDER CPT-94099 Venipuncture Draw Fee 09:46:13 ASSEMBLY MACHINE TENDER CPT-52981 Venipuncture Draw Fee 11:34:27 ASSEMBLY MACHINE TENDER CPT-16284 Venipuncture Draw Fee 13:17:16 ASSEMBLY MACHINE TENDER CPT-21504 Venipuncture Draw Fee 12:05:39 CDT CPT-32739 Venipuncture Draw Fee 12:49:12 CDT CPT-30608 Venipuncture Draw Fee 12:37:18 CDT CPT-38775 Venipuncture Draw Fee 10:57:11 CDT CPT-46884 Venipuncture Draw Fee 13:47:40 CDT CPT-16800 Venipuncture Draw Fee 10:02:17 CDT CPT-72787 TB Tubersol 17:32:32 CDT CPT-OV Office Visit 16:21:53 CDT CPT-OV Office Visit 15:49:22 CDT CPT-OV Office Visit 17:16:31 CDT CPT-OV Office Visit 10:43:31 CDT
--- OUTSIDE RECORDS SUMMARY | 2019-02-09 12:32 | XMS REPORT | Clinical Summary ---
Author Author Renaldo, Florecita Munoz Organization [facility] Mention Mobile Address Unknown Phone Unavailable Allergies, Adverse Reactions, [...] PhD Hyperpotassemia GERD 530.81 Resolved Kylie Yokum [employer] Esophageal reflux Health maintenance exam V70.0 Resolved Adolfo Yates MD Routine general medical examination at a health care facility Anemia 285.9 Resolved Kylie Holt [employer] Anemia, unspecified Personal history of malignant [...] Sebaceous cyst, scalp 706.2 Resolved Kylie Holt [employer] Sebaceous cyst Cervical lymphadenopathy, anterior, left 785.6 Resolv ed Kylie Holt [employer] Enlargement of lymph nodes Need for prophylactic vaccination and inoculation against in fluenza V04.81 Resolved Adam Yates MD Need for prophylactic vaccination and inoculation against influenza Preventive health care V70.0 Active Kylie Holt [employer] Routine general medical examination at a health care facility Thyroid nodule, left 241.0 Active Kylie Gonzalez PRN Nontoxic uninodular goiter Screening mammogram V76.12 Active Kylie Holt AP RN Other screening mammogram Mandy 706.2 Active Adam Yates MD Sebaceous cyst ABDOMINAL PAIN, RIGHT LOWER QUADRANT ICD-789.03 Inactive Kina Joshua [employer] ADENOCARCINOMA, COLON, 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 Dick Yates MD ABDOMINAL PAIN, GENERALIZED ICD-789.07 Inactive Hope Benavidez MD PhD FEVER UNSPECIFIED ICD-780.60 Inactive Hope cohn MD PhD UNSPECIFIED VENOUS INSUFFICIENCY ICD-459.81 [place] ctive Adam Yates MD ADENOCARCINOMA, 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 Inac tive Hope Benavidez MD PhD Hyperkalemia ICD-276.7 Inactive Hope Benavidez MD PhD GERD ICD-530.81 Inactive Kylie Holt [employer] 2015 Health maintenance exam ICD-V70.0 Bam Yates MD Anemia ICD-285.9 Inactive Kylie Holt [employer] 07/24 Weakness ICD-780.79 Inactive Hope Benavidez MD [...] cyst, scalp ICD-706.2 Inactive Tracy shubham Yanet [employer] Cervical lymphadenopathy, anterior, left ICD-785.6 Inactive Kylie Holt [employer] Need for prophylactic vaccination and inoculation against in fluenza ICD-V04.81 Bam Yates MD Medication List Medication Instructions Start Date Stop Date Generic Name NDC Status Provider Patient Instruction VITAMIN D3 2000 UNIT ORAL CAPS Melaleuca-One daily CHOLECALCIFEROL [id number] Active Kylie Yokum [employer] Active PROBIOTIC DAILY ORAL CAPS Take one daily PROBIOTIC PRODUCT 23178297499 Active Kylie Holt [employer] Active IRON 325 (65 FE) MG TABS 1 every other day FERR OUS SULFATE 23099743076 No Longer Active Kylie Holt [employer] Active FLORANEX PACK 1 pack three times daily, for bowel health LACTOBACILLUS 95166678366 No Longer Active Kylie Holt [employer] Active LOMOTIL 2.5-0.025 MG TABS 1 tab by mouth prn 4 DIPHENOXYLATE-ATROPINE 77422052891 No Longer Active Kylie Lundum [employer] Active MAGNESIUM GLUCONATE 250 MG TABS 1 tab tid 4 MAGNESIUM GLUCONATE 39421846253 No Longer Active Kylie Holt [employer] Active CYANOCOBALAMIN 1000 MCG/ML INJ SOLN 1 injection every 2 weeks 20 20/01/03 CYANOCOBALAMIN 28327549987 No Longer Active Kylie Holt [employer] Active ATENOLOL 25 MG ORAL TABS 1/2 pill by mouth daily, for headac hes, blood pressure ATENOLOL 65300388243 Active Kylie Lundum [employer] Active PROPRANOLOL HCL 80 MG TABS 1 tab tue. and thur. 04/10 PROPRANOLOL HCL 09460558555 No Longer Active Hope Benavidez MD PhD A ctive VITAMIN D3 4000 IU 1 tab 3 times daily VITAMIN D3 4000 IU No Longer Active Hope Benavidez MD PhD Active BACTRIM DS 800-160 MG TABS 1 pill by mouth twice daily, for UTI SULFAMETHOXAZOLE-TRIMETHOPRIM 42317609633 No Longer Active A attila Benavidez MD PhD Active PROLIA 60 MG/ML SOLN 1 shot every 6 months for osteoprosis DENOSUMAB 29633702847 Active Hope Benavidez MD PhD Active CALCIUM + D + K 750-500-40 MG-UNT-MCG TABS 1 tab by mouth tw ice daily CALCIUM-VITAMIN D-VITAMIN K 08148438405 Active Hope landers MD PhD Active DAILY VALUE MULTIVITAMIN TABS 1 tab by mouth twice daily MULTIPLE VITAMIN 89985292936 Active Hope Benavidez MD PhD Active FISH OIL 306 MG CAPS 1 tab by mouth three times daily OMEGA-3 FATTY ACIDS 17283065156 Active Hope Benavidez MD PhD Active LUTEIN 10 MG TABS 1 tab daily LUTEIN 88564582507 Act cash Hope Benavidez MD PhD Active TRIAMTERENE-HCTZ 37.5-25 MG TABS 1 tab by mouth daily TRIAMTERENE-HCTZ 33092941941 Active Kylieshubham Holt [employer] Active CYCLOBENZAPRINE HCL 10 MG TABS 1 tablet by mouth three times daily as needed for headaches CYCLOBENZAPRINE HCL 39811084464 No Longe r Active Adam Yates MD Active OMEPRAZOLE 20 MG CPDR 1 tablet by mouth daily for GERD OMEPRAZOLE 50369178141 No Longer Active Adam Yates MD A ctive ZOFRAN 8 MG TABS 1 tab by mouth every 12 hours prn 201 05/16/09 ONDANSETRON HCL 28725421250 No Longer Active Adam Yates MD Active PHENADOZ 25 MG SUPP 1 every 4 hrs. PRN PROMETHA ZINE HCL 09849129149 No Longer Active Adam Yates MD Active POTASSIUM CHLORIDE 20 MEQ PACK by mouth twice a day prn POTASSIUM CHLORIDE 06238243217 No Longer Active Adam Yates MD Active PROMETHAZINE HCL 25 MG TABS 1 Q. 4 hr. PRN PROM ETHAZINE HCL 66337595925 No Longer Active Adam Yates MD Active INNOPRAN XL 120 MG [id number] Take one by mouth daily 2 PROPRANOLOL HCL SR BEADS 80043607056 No Longer Active Adam Yates MD A ctive FLAGYL 500 MG TABS 1 pill by mouth three times daily, for diarrh ea METRONIDAZOLE 27712640814 No Longer Active Hope Benavidez MD PhD Active DYAZIDE 37.5-25 MG CAPS 1 qd TRIAMTERENE-HC TZ 46436280985 No Longer Active Hope Benavidez MD PhD Active PROZAC 20 MG CAPS 1 q d FLUOXETINE HCL 76499 163506 No Longer Active Hope Benavidez MD PhD Active SIMVASTATIN 40 MG TABS 1 qd SIMVASTATIN 004 23740717 No Longer Active Adam Yates MD Active MELOXICAM 15 MG TABS 1 qd MELOXICAM 5209279 0589 No Longer Active Adam Yates MD Active IMODIUM A-D 2 MG TABS 2 onset at diarrhea and prn. LOPERAMIDE HCL 98121777516 Active Hope Benavidez MD PhD Active EXCEDRIN EXTRA STRENGTH 250-250-65 MG TABS 1-2 q6h PRN headache 201 04/16/21 [id number] 57239375368 Active Hope Benavidez MD PhD Active FLAGYL 500 MG TABS 1 qid METRONIDAZOLE 70299 061510 No Longer Active Adam Yates MD Active LEVAQUIN 750 MG TABS 1 qd LEVOFLOXACIN 5486 0818600 No Longer Active Adam Yates MD Active ADULT ASPIRIN LOW STRENGTH 81 MG TBDP 1 qd A SPIRIN 42048403472 Active Hope Benavidez MD PhD Active LEVAQUIN 750 MG TABS 1 qd LEVAQUIN 750 MG T ABS 328482 LEVOFLOXACIN Inactive FLAGYL 500 MG TABS 1 qid FLAGYL 500 MG TABS 817734 METRONIDAZOLE Inactive MELOXICAM 15 MG TABS 1 qd MELOXICAM 15 MG T ABS 893788 MELOXICAM Inactive SIMVASTATIN 40 MG TABS 1 qd SIMVASTATIN 40 MG TABS 397579 SIMVASTATIN Inactive PROZAC 20 MG CAPS 1 q d PROZAC 20 MG CAPS 31 0385 FLUOXETINE HCL Inactive DYAZIDE 37.5-25 MG CAPS 1 qd DYAZIDE 37.5 -25 MG CAPS 403457 TRIAMTERENE-HCTZ Inactive INNOPRAN XL 120 MG [id number] Take one by mouth daily 2 INNOPRAN XL 120 MG [id number] PROPRANOLOL HCL SR BEADS Inactive PROMETHAZINE HCL 25 MG TABS 1 Q. 4 hr. PRN PROMETHAZINE HCL 25 MG TABS 311468 PROMETHAZINE HCL Inactive POTASSIUM CHLORIDE 20 MEQ PACK by mouth twice a day prn POTASSIUM CHLORIDE 20 MEQ PACK 440301 POTASSIUM CHLORIDE Inactive PHENADOZ 25 MG SUPP 1 every 4 hrs. PRN PHENADOZ 2 5 MG SUPP 755088 PROMETHAZINE HCL Inactive ZOFRAN 8 MG TABS 1 tab by mouth every 12 hours prn 201 05/16/09 ZOFRAN 8 MG TABS 045342 ONDANSETRON HCL Inactive OMEPRAZOLE 20 MG CPDR 1 tablet by mouth daily for GERD OMEPRAZOLE 20 MG CPDR 078838 OMEPRAZOLE Inactive CYCLOBENZAPRINE HCL 10 MG TABS 1 tablet by mouth three times daily as needed for headaches CYCLOBENZAPRINE HCL 10 MG TABS 302317 CYCLOBENZAPRINE HCL Inactive VITAMIN D3 4000 IU 1 tab 3 times daily VITAMIN D3 4000 IU Inactive PROPRANOLOL HCL 80 MG TABS 1 tab tue. and thur. 04/10 PROPRANOLOL HCL 80 MG TABS 954602 PROPRANOLOL HCL Inactive CYANOCOBALAMIN 1000 MCG/ML INJ SOLN 1 injection every 2 weeks 20 20/01/03 CYANOCOBALAMIN 1000 MCG/ML INJ SOLN 337291 CYANOCOBALAM IN Inactive MAGNESIUM GLUCONATE 250 MG TABS 1 tab tid 4 MAGNESIUM GLUCONATE 250 MG TABS 316617 MAGNESIUM GLUCONATE Inactive LOMOTIL 2.5-0.025 MG TABS 1 tab by mouth prn 4 LOMOTIL 2.5- 0.025 MG TABS 6228127 DIPHENOXYLATE-ATROPINE Inactive FLORANEX PACK 1 pack three times daily, for bowel health FLORANEX PACK LACTOBACILLUS Inactive IRON 325 (65 FE) MG TABS 1 every other day IRON 325 (65 FE) MG TABS 125229 FERROUS SULFATE Inactive FLAGYL 500 MG TABS 1 pill by mouth three times daily, for diarrh ea FLAGYL 500 MG TABS 027341 METRONIDAZOLE Inactive BACTRIM DS 800-160 MG TABS 1 pill by mouth twice daily, for UTI BACTRIM DS 800-160 MG TABS 553323 SULFAMETHOXAZOLE-TRIM ETHOPRIM Inactive Advance Directives Directive Description [...] Panel - Chemistry sodium, serum 142 mmol/L 113-733 8905/04/20 carbon dioxide, venous blood 34.7 mmol/L [...] ... - Chemistry sodium, serum 139 mmol/L 294-141 9552/10/20 carbon dioxide, venous blood 32.2 mmol/L 21.0-32 [...] - Chemi stry cholesterol, serum 200 mg/dL 359-404 8912/11/22 triglyceride, serum, fasting 129 mg/dL 30-200 HDL cholesterol, serum 56 mg/dL 32-96 LDL cholesterol, serum 118 mg/dL 0-130 calcium, serum 9.0 mg/dL 8.5-10.1 Encounters Code Encounter Date Provider Facility CPT-52416 Level 3 New Patient 16:22:01 SEASONER Adam Yates MD [facility] CPT-86827 Level 4 Est. Patient 17:00:48 CDT Klyie Lund [facility] CPT-81216 Level 3 Est. Patient 13:15:54 CDT Kylie Lund [facility] CPT-03200 Level 3 Est. Patient 09:10:11 CDT Kylie Lund [facility] CPT-95335 Level 4 Est. Patient 12:08:30 SEASONER Hope cohn MD PhD [facility] CPT-95287 Level 4 Est. Patient 19:08:42 SEASONER Hope cohn MD PhD [facility] CPT-36250 Level 4 Est. Patient 20:04:51 CDT Hope cohn MD PhD [facility] CPT-48563 Level 3 New Patient 01:46:11 SEASONER Hope landers MD PhD [facility] Procedures Code Procedure Name Date Entry Date Standard Desc ription CPT-27150 Lipid - LAB USE ONLY 10:01:52 SEASONER 2 CPT-96130 Calcium - LAB USE ONLY 10:01:51 SEASONER CPT-75677 Venipuncture Draw Fee 10:01:51 SEASONER CPT-LR Lesion Removal 16:22:01 SEASONER CPT-32167 TSH - LAB USE ONLY 14:26:02 CDT CPT-83717 CMP - LAB USE ONLY 14:26:01 CDT CPT-98287 CBC with Diff - LAB USE ONLY 14:26:01 CDT 2 CPT-63707 Venipuncture Draw Fee 14:26:01 CDT CPT-07007 First Vx - Ix admin for Medicare patients 13:27:08 CDT CPT-26723 Fluzone High-Dose Intramuscular Suspension 11/26 13:27:08 CDT CPT-G0438 Initial Annual Wellness Exam 14:19:57 CD T CPT-G0009 Administration of Pneumococcal Vaccine 9 11:36:25 CDT CPT-50595 Prevnar 13 Intramuscular Suspension 1 1:36:25 CDT CPT-09746 Prevnar 13 Intramuscular Suspension 1 0:40:58 CDT CPT-J0897 Prolia 60 mg 10:37:16 CDT CPT-05812 Abx/Therapy Injection 10:37:16 CDT CPT-J0897 Prolia 60 mg 16:09:34 SEASONER CPT-J0897 Prolia 60 mg 11:10:35 SEASONER CPT-24063 Abx/Therapy Injection 11:10:35 SEASONER CPT-000 Give Appropriate Flu Vaccine 17:01:15 SEASONER 2 CPT-19136 Fluzone High Dose (65+) 15:03:08 SEASONER 02/15 CPT-47591 Immunization Single Admin 15:03:08 SEASONER 2014 CPT-OV Office Visit 15:58:06 CDT CPT-J0897 Prolia 60 mg 08:45:38 CDT CPT-26985 Abx/Therapy Injection 08:45:38 CDT CPT-J3420 Vitamin B12 1000mcg (Cyanocobalamin) 09:26:20 SEASONER CPT-94889 Abx/Therapy Injection 09:26:20 SEASONER CPT-J3420 Vitamin B12 1000mcg (Cyanocobalamin) 09:44:40 SEASONER CPT-10041 Abx/Therapy Injection 09:44:40 SEASONER CPT-J3420 Vitamin B12 1000mcg (Cyanocobalamin) 09:15:54 SEASONER CPT-55799 Abx/Therapy Injection 09:15:54 SEASONER CPT-J3420 Vitamin B12 1000mcg (Cyanocobalamin) 09:46:44 SEASONER CPT-29354 Abx/Therapy Injection 09:46:44 SEASONER CPT-J3420 Vitamin B12 1000mcg (Cyanocobalamin) 09:47:34 SEASONER CPT-38190 Abx/Therapy Injection 09:47:34 SEASONER CPT-J3420 Vitamin B12 1000mcg (Cyanocobalamin) 14:35:50 SEASONER CPT-J3420 Vitamin B12 1000mcg (Cyanocobalamin) 09:25:05 SEASONER CPT-48692 Abx/Therapy Injection 09:25:05 SEASONER CPT-G0008 Administration of Influenza Virus Vaccine 13:36:47 CDT CPT-36214 Fluzone High-Dose Intramuscular Suspension 11/15 13:36:47 CDT CPT-J0897 Prolia 60 mg 08:50:41 CDT CPT-56353 Abx/Therapy Injection 08:50:41 CDT CPT-21216 Bone Density 12:06:12 CDT CPT-46599 Bone Density 08:54:40 CDT CPT-OV Office Visit 15:37:02 CDT CPT-83916 Postop F/U Visit 15:47:49 CDT CPT-48403 Postop F/U Visit 15:21:02 CDT CPT-[facility] Transitional Care Mgmt-High 07:52:27 CDT 20 20/06/01 CPT-31854 Venipuncture Draw Fee 13:51:18 CDT CPT-73289 Venipuncture Draw Fee 10:14:55 SEASONER CPT-17092 Venipuncture Draw Fee 13:39:45 SEASONER CPT-OV Office Visit 15:11:22 SEASONER CPT-91933 Venipuncture Draw Fee 09:20:49 SEASONER CPT-82041 Venipuncture Draw Fee 16:52:15 SEASONER CPT-47364 Venipuncture Draw Fee 10:37:24 SEASONER CPT-19569 Venipuncture Draw Fee 08:21:21 SEASONER CPT-79522 Venipuncture Draw Fee 08:30:20 SEASONER CPT-34245 Venipuncture Draw Fee 14:53:21 SEASONER CPT-51409 Venipuncture Draw Fee 09:40:56 SEASONER CPT-34363 Venipuncture Draw Fee 10:30:47 SEASONER CPT-89218 Venipuncture Draw Fee 10:46:17 SEASONER CPT-01868 Venipuncture Draw Fee 11:12:45 SEASONER CPT-89944 Venipuncture Draw Fee 09:53:33 SEASONER CPT-74045 Venipuncture Draw Fee 11:53:51 SEASONER CPT-54674 Venipuncture Draw Fee 10:33:50 SEASONER CPT-98327 Venipuncture Draw Fee 10:05:01 SEASONER CPT-58959 Venipuncture Draw Fee 14:32:52 SEASONER CPT-38983 Venipuncture Draw Fee 09:46:13 SEASONER CPT-81497 Venipuncture Draw Fee 11:34:27 SEASONER CPT-35483 Venipuncture Draw Fee 13:17:16 SEASONER CPT-54436 Venipuncture Draw Fee 12:05:39 CDT CPT-91910 Venipuncture Draw Fee 12:49:12 CDT CPT-45465 Venipuncture Draw Fee 12:37:18 CDT CPT-08267 Venipuncture Draw Fee 10:57:11 CDT CPT-56099 Venipuncture Draw Fee 13:47:40 CDT CPT-52843 Venipuncture Draw Fee 10:02:17 CDT CPT-40857 TB Tubersol 17:32:32 CDT CPT-OV Office Visit 16:21:53 CDT CPT-OV Office Visit 15:49:22 CDT CPT-OV Office Visit 17:16:31 CDT CPT-OV Office Visit 10:43:31 CDT
--- OUTSIDE RECORDS SUMMARY | 2019-02-09 12:32 | XMS REPORT | Clinical Summary ---
Author Author Renaldo, Florecita Munoz Organization [facility] [place] Address Unknown Phone Unavailable Allergies, Adverse Reactions, [...] Hyperpotassemia GERD 530.81 Resolved Kylie Yokum [employer]ISH[employer] Esophageal reflux Health maintenance exam V70.0 Resolved Adolfo Yates MD Routine general medical examination at a health care facility Anemia 285.9 Resolved Kylie Yanet [employer] Anemia, unspecified Personal history of malignant neoplasm of large intestine V10.05 Active Adam Yates MD Personal history of malignant neoplasm of large intestine Hypomagnesemia 275.2 Resolved Kylie Yanet [employer]ISH[employer] Disorders of magnesium metabolism Weakness 780.79 Resolved [...] cyst, scalp 706.2 Resolved Kylie Yokum SUPERVIS[employer]ISH[employer] Sebaceous cyst Cervical lymphadenopathy, anterior, left 785.6 Resolv ed Kylie Yokum [employer]ISH[employer] Enlargement of lymph nodes Need for prophylactic vaccination and inoculation against in fluenza V04.81 Resolved Adam Yates MD Need for prophylactic vaccination and inoculation against influenza Preventive health care V70.0 Active Kylie Yokum [employer] Routine general medical examination at a health care facility Thyroid nodule, left 241.0 Active Kylie Yokum A PRN Nontoxic uninodular goiter Screening mammogram V76.12 Active Kylie Yokum AP RN Other screening mammogram Mandy 706.2 Resolved Kylie Yokum [employer] Sebaceous cyst Colon cancer, ascending 153.6 Resolved Kylie Yok um [employer] Malignant neoplasm of ascending colon Foot pain, left 729.5 Active 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 Pain in limb Splinter 919.6 Active Kylie Yokum [employer] Superficial foreign body (splinter) of other, multiple, and unspecified sites, without major open wound and without mention of infection Rash 782.1 Active Kylie Yokum [employer] R aurora and other nonspecific skin eruption Cyst 706.2 Active Kylie Yokum SUPER[employer]ISH[employer] S ebaceous cyst ABDOMINAL PAIN, RIGHT LOWER QUADRANT ICD-789.03 Inactive Kina Joshua [employer]ISH[employer] ADENOCARCINOMA, COLON, 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 Dick Yates MD ABDOMINAL PAIN, GENERALIZED ICD-789.07 Inactive Hope Benavidez MD PhD FEVER UNSPECIFIED ICD-780.60 Inactive Hope cohn MD PhD UNSPECIFIED VENOUS INSUFFICIENCY ICD-459.81 Jasper ctive Adam Yates MD ADENOCARCINOMA, 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 Inac breave Hope Benavidez MD PhD Hyperkalemia ICD-276.7 Inactive Hope Benavidez MD PhD Health maintenance exam ICD-V70.0 Inactive Adolfo Yates MD Anemia ICD-285.9 Inactive Kylie Holt [employer] 07/24 GERD ICD-530.81 Inactive Kylie Holt [employer] 2015 Aftercare following surgery of the teeth,oral cavity a nd digestive system, NEC ICD-V58.75 Inactive Adam Yates MD Hypomagnesemia ICD-275.2 Inactive Kylie Holt [employer] Asymptomatic postmenopausal status (age-related) (natural) I CD-V49.81 Inactive Hope Benavidez MD PhD Diarrhea, functional ICD-564.5 Inactive Selena Yates MD Dysuria ICD-788.1 Inactive Hope Benavidez MD PhD 201 05/19/01 Adenocarcinoma, ascending colon ICD-153.6 Inac abdelrahman Yates MD Sebaceous cyst, scalp ICD-706.2 Inactive Tracy Holt SUPERVIS[employer] Cervical lymphadenopathy, anterior, left ICD-785.6 Inactive Kylie Holt [employer]ISHING Need for prophylactic vaccination and inoculation against in fluenza ICD-V04.81 Inactive Adam Yates MD Mandy ICD-706.2 Inactive Kylie Holt [employer]PER[employer] 07/20 Colon cancer, ascending ICD-153.6 Inactive Bravo Holt [employer]PER[employer] FINISHING Colon cancer ICD-153.9 Inactive Adam luna MD Weakness ICD-780.79 Inactive Hope Benavidez MD P hD Medication List Medication Instructions Start Date Stop Date Generic Name NDC Status Provider Patient Instruction VOLTAREN 1 % TRANSDERMAL GEL apply q 6-8 hour to left arm as needed for pain DICLOFENAC SODIUM 30800166559 Active Kylie Holt APRN Active COQ10 100 MG ORAL CAPSULE 1 daily COENZYME Q10 030136 80842 Active LETY Nation Active VITAMIN D3 2000 UNIT ORAL CAPSULE Melaleuca-One daily CHOLECALCIFEROL 95307535283 Active Kylie Holt APRN Active PROBIOTIC DAILY ORAL CAPSULE Take one daily PROBIO TIC PRODUCT 75618235533 Active Kylie Holt APRN Active IRON 325 (65 Fe) MG ORAL TABLET 1 every other day FERROUS SULFATE 39727634913 No Longer Active Kylie Holt APRN Active FLORANEX ORAL PACKET 1 pack three times daily, for bowel health LACTOBACILLUS 70266130918 No Longer Active Kylie Holt APRN Active LOMOTIL 2.5-0.025 MG ORAL TABLET 1 tab by mouth prn 23/10/23 DIPHENOXYLATE-ATROPINE 75931033180 No Longer Active Kylie Holt APRN Active MAGNESIUM GLUCONATE 250 MG ORAL TABLET 1 tab tid 23/10/23 MAGNESIUM GLUCONATE 02576271721 No Longer Active Kylie Yokum [employer]PER[employer]ISH[employer] Active CYANOCOBALAMIN 1000 MCG/ML INJECTION SOLUTION 1 injection ev ruben 2 weeks CYANOCOBALAMIN 00456585946 No Longer Active Kylie Lund um [employer] FINISHING Active ATENOLOL 25 MG ORAL TABLET 1/2 pill by mouth daily, fo r headaches, blood pressure ATENOLOL 13824341941 Active Kylie Yokum [employer]ISH[employer] Active PROPRANOLOL HCL 80 MG ORAL TABLET 1 tab tue. and thur. PROPRANOLOL HCL 35358842873 No Longer Active Hope Benavidez MD PhD A ctive VITAMIN D3 4000 IU 1 tab 3 times daily VITAMIN D3 4000 IU No Longer Active Hope Benavidez MD PhD Active BACTRIM DS 800-160 MG ORAL TABLET 1 pill by mouth twice claudio y, for UTI SULFAMETHOXAZOLE-TRIMETHOPRIM 46166506563 No Longer Active Hope Benavidez MD PhD Active PROLIA 60 MG/ML SUBCUTANEOUS SOLUTION 1 shot every 6 months for osteoprosis DENOSUMAB 86929123523 Active Hope Benavidez MD PhD Active CALCIUM + D + K 750-500-40 MG-UNT-MCG ORAL TABLET 1 tab by m out twice daily CALCIUM-VITAMIN D-VITAMIN K 83367747457 Active Hope valdez MD PhD Active DAILY VALUE MULTIVITAMIN ORAL TABLET 1 tab by mouth twice daily 201 05/16/14 MULTIPLE VITAMIN 77773705803 Active Hope Benavidez MD PhD Acti ve FISH OIL 306 MG CAPS 1 tab by mouth three times daily OMEGA-3 FATTY ACIDS 57446379864 Active Hope Benavidez MD PhD Active LUTEIN 10 MG ORAL TABLET 1 tab daily LUTEIN 66653238 408 Active Hope Benavidez MD PhD Active TRIAMTERENE-HCTZ 37.5-25 MG ORAL TABLET 1 tab by mouth daily 10/22 TRIAMTERENE-HCTZ 97952003928 Active LETY Rossi Activ e CYCLOBENZAPRINE HCL 10 MG ORAL TABLET 1 tablet by mout h three times daily as needed for headaches CYCLOBENZAPRINE HCL 19914762260 No Longer Active Adam Yates MD Active OMEPRAZOLE 20 MG ORAL CAPSULE DELAYED RELEASE 1 tablet by mo [facility] daily for GERD OMEPRAZOLE 43268700911 No Longer Active Adam Yates MD Active ZOFRAN 8 MG ORAL TABLET 1 tab by mouth every 12 hours prn 4 ONDANSETRON HCL 89512036922 No Longer Active Adam Yates MD Active PHENADOZ 25 MG RECTAL SUPPOSITORY 1 every 4 hrs. PRN 2 PROMETHAZINE HCL 50148452182 No Longer Active Adam Yates MD A ctive POTASSIUM CHLORIDE 20 MEQ ORAL PACKET by mouth twice a day prn 2 POTASSIUM CHLORIDE 92170410262 No Longer Active Adam Carpenter MD Active PROMETHAZINE HCL 25 MG ORAL TABLET 1 Q. 4 hr. PRN PROMETHAZINE HCL 09611438568 No Longer Active Adam Yates MD Active INNOPRAN XL 120 MG ORAL CAPSULE EXTENDED RELEASE 24 HO UR Take one by mouth daily PROPRANOLOL HCL SR BEADS 61950517319 No Longer Active Adam Yates MD Active FLAGYL 500 MG ORAL TABLET 1 pill by mouth three times daily, for diarrhea METRONIDAZOLE 73845159703 No Longer Active Hope landers MD PhD Active DYAZIDE 37.5-25 MG ORAL CAPSULE 1 qd TRIA MTERENE-HCTZ 90088253100 No Longer Active Hope Benavidez MD PhD Active PROZAC 20 MG ORAL CAPSULE 1 q d FLUOXETINE HCL 45402137758 No Longer Active Hope Benavidez MD PhD Active SIMVASTATIN 40 MG ORAL TABLET 1 qd SIMVAS TATIN 78334699645 No Longer Active Adam Yates MD Active MELOXICAM 15 MG ORAL TABLET 1 qd MELOXICAM 28230285618 No Longer Active Adam Yates MD Active IMODIUM A-D 2 MG ORAL TABLET 2 onset at diarrhea and prn. LOPERAMIDE HCL 90184679109 Active Hope Benavidez MD PhD Active EXCEDRIN EXTRA STRENGTH 250-250-65 MG ORAL TABLET 1-2 q6h ME N headache [id number]-GYMNODCY 13095919067 Active Hope Benavidez MD PhD Active FLAGYL 500 MG ORAL TABLET 1 qid METRONIDAZOL E 26401566186 No Longer Active Adam Yates MD Active LEVAQUIN 750 MG ORAL TABLET 1 qd LEVOFLOXAC IN 78863907560 No Longer Active Adam Yates MD Active ADULT ASPIRIN LOW STRENGTH 81 MG ORAL TABLET DISINTEGRATING 1 qd ASPIRIN 05293331956 Active Hope Benavidez MD PhD Active LEVAQUIN 750 MG ORAL TABLET 1 qd LEVAQUIN 750 MG ORAL TABLET 577386 LEVOFLOXACIN Inactive FLAGYL 500 MG ORAL TABLET 1 qid FLAGYL 500 MG ORAL TABLET 300911 METRONIDAZOLE Inactive MELOXICAM 15 MG ORAL TABLET 1 qd MELOXICAM 15 MG ORAL TABLET 758430 MELOXICAM Inactive SIMVASTATIN 40 MG ORAL TABLET 1 qd SIMVASTATIN 40 MG ORAL TABLET 919149 SIMVASTATIN Inactive PROZAC 20 MG ORAL CAPSULE 1 q d PROZAC 20 MG ORAL CAPSULE 733349 FLUOXETINE HCL Inactive DYAZIDE 37.5-25 MG ORAL CAPSULE 1 qd 5 DYAZIDE 37.5-25 MG ORAL CAPSULE 157618 TRIAMTERENE-HCTZ Inactive INNOPRAN XL 120 MG ORAL CAPSULE EXTENDED RELEASE 24 HO UR Take one by mouth daily INNOPRAN XL 120 MG ORAL CAPSULE EXTENDED RELEASE 24 HOUR PROPRANOLOL HCL SR BEADS Inactive PROMETHAZINE HCL 25 MG ORAL TABLET 1 Q. 4 hr. PRN 2013 PROMETHAZINE HCL 25 MG ORAL TABLET 645601 PROMETHAZINE HCL Inactive POTASSIUM CHLORIDE 20 MEQ ORAL PACKET by mouth twice a day prn 2 POTASSIUM CHLORIDE 20 MEQ ORAL PACKET 5775807 POTASSIUM CHLORIDE Inactive PHENADOZ 25 MG RECTAL SUPPOSITORY 1 every 4 hrs. PRN 2 014/09/10 PHENADOZ 25 MG RECTAL SUPPOSITORY 870060 PROMETHAZINE HCL Inactive ZOFRAN 8 MG ORAL TABLET 1 tab by mouth every 12 hours prn 4 ZOFRAN 8 MG ORAL TABLET 623927 ONDANSETRON HCL Inactive OMEPRAZOLE 20 MG ORAL CAPSULE DELAYED RELEASE 1 tablet by mo uth daily for GERD OMEPRAZOLE 20 MG ORAL CAPSULE DELAYED RELEASE 19 8051 OMEPRAZOLE Inactive CYCLOBENZAPRINE HCL 10 MG ORAL TABLET 1 tablet by mout h three times daily as needed for headaches CYCLOBENZAPRINE HCL 10 MG ORAL TABLET 887297 CYCLOBENZAPRINE HCL Inactive VITAMIN D3 4000 IU 1 tab 3 times daily VITAMIN D3 4000 IU Inactive PROPRANOLOL HCL 80 MG ORAL TABLET 1 tab tue. and thur. PROPRANOLOL HCL 80 MG ORAL TABLET 189070 PROPRANOLOL HCL Inacti ve CYANOCOBALAMIN 1000 MCG/ML INJECTION SOLUTION 1 injection ev ruben 2 weeks CYANOCOBALAMIN 1000 MCG/ML INJECTION SOLUTION 30 9594 CYANOCOBALAMIN Inactive MAGNESIUM GLUCONATE 250 MG ORAL TABLET 1 tab tid 20 23/10/23 MAGNESIUM GLUCONATE 250 MG ORAL TABLET 440248 MAGNESIUM GLUCONATE Inactive LOMOTIL 2.5-0.025 MG ORAL TABLET 1 tab by mouth prn 20 23/10/23 LOMOTIL 2.5-0.025 MG ORAL TABLET 7441212 DIPHENOXYLATE-ATROPINE Inac tive FLORANEX ORAL PACKET 1 pack three times daily, for bowel health FLORANEX ORAL PACKET LACTOBACILLUS Inactive IRON 325 (65 Fe) MG ORAL TABLET 1 every other day 2015 IRON 325 (65 Fe) MG ORAL TABLET 930441 FERROUS SULFATE Inactive FLAGYL 500 MG ORAL TABLET 1 pill by mouth three times daily, for diarrhea FLAGYL 500 MG ORAL TABLET 846975 METRONIDAZOLE I nactive BACTRIM DS 800-160 MG ORAL TABLET 1 pill by mouth twice claudio y, for UTI BACTRIM DS 800-160 MG ORAL TABLET 959814 SULFAMETHOXAZOLE-TRIMETHOPRIM Inactive Advance Directives Directive Description Start [...] ... - Chemistry sodium, serum 138 mmol/L 229-802 2135/12/15 potassium, serum 4.0 mmol/L 3.5-5.2 chloride, serum [...] 11 .0-15.0 platelet count 157 THOUSAND/UL 10*3/mm3 209-251 4899/04/20 mean platelet volume 8.9 fL 7.5-12.5 Lab Report: CEA - Serology carcinoembryonic antigen 0.9 ng/mL Encounters Code Encounter Date Provider Facility CPT-04647 Level 3 Est. Patient 08:15:24 [employer]TAIN [employer]ERY [employer]ENDER Kylie Lund [facility] CPT-98363 Level 2 Est. Patient 14:27:16 [employer]TAIN CAN[employer]ERY TENDER [facility] CPT-02354 Level 3 Est. Patient 17:54:48 CDT [facility] CPT-43586 Level 3 Est. Patient 16:26:30 CDT Kina blackmon [facility] CPT-81952 Level 3 New Patient 16:22:01 CAPTAIN CANNERY TENDER Adam Yates MD [facility] CPT-07638 Level 4 Est. Patient 17:00:48 CDT Kylie Lund [facility] CPT-72285 Level 3 Est. Patient 13:15:54 CDT Kylie Lund [facility] CPT-66619 Level 3 Est. Patient 09:10:11 CDT Kylie Lund [facility] CPT-77749 Level 4 Est. Patient 12:08:30 CAPTAIN CANNERY TENDER Hope cohn MD [facility] CPT-24592 Level 4 Est. Patient 19:08:42 CAPTAIN CANNERY TENDER Hope cohn MD PhD [facility] CPT-47031 Level 4 Est. Patient 20:04:51 CDT Hope cohn MD PhD [facility] CPT-87163 Level 3 New Patient 01:46:11 CAPTAIN CAN[employer]ERY TENDER Hope landers MD PhD [facility] Procedures Code Procedure Name Date Entry Date Standard Desc ription CPT-J0897 Prolia 60 mg 15:46:54 [employer]END[employer] CPT-74405 Abx/Therapy Injection 15:46:54 [employer]ENDER CPT-18944 Microalbumin - LAB USE ONLY 09:41:32 [employer] TENDER 20 23/01/15 CPT-22230 Free T4 - LAB USE ONLY 09:41:32 [employer]TAIN [employer] TENDER CPT-34013 TSH - LAB USE ONLY 09:41:32 [employer]TAIN [employer]ERY TENDER CPT-77609 BMP - LAB USE ONLY 09:41:32 [employer]TAIN [employer] TENDER CPT-80746 Venipuncture Draw Fee 09:41:32 [employer] TENDER CPT-80712 First Vx - Ix admin for Medicare patients 11:19:30 CDT CPT-62133 Fluzone High-Dose Intramuscular Suspension 12/07 11:19:30 CDT CPT-J0897 Prolia 60 mg 14:55:42 CDT CPT-49295 Abx/Therapy Injection 14:55:42 CDT CPT-94115 Bone Density - XRAY USE ONLY 10:27:12 CDT 2 CPT-G0439 [facility] Annual Wellness Exam 17:54:53 CDT CPT-72033 Foot, left, comp min 3V - XRAY USE ONLY 12:22:49 CDT CPT-G0009 Administration of Pneumococcal Vaccine 3 12:18:00 CDT CPT-73327 Pneumovax 23 Injection Injectable 25 MCG /0.5ML 12:18:00 CDT CPT-J0897 Prolia 60 mg 14:14:16 [employer] CPT-92662 Abx/Therapy Injection 14:14:15 [employer]ENDER CPT-04984 Lipid - LAB USE ONLY 10:01:52 [employer]TAIN CANNERY TENDER 2 CPT-20303 Calcium - LAB USE ONLY 10:01:51 [employer]TAIN CAN[employer]ERY TENDER CPT-11161 Venipuncture Draw Fee 10:01:51 CAPTAIN CANNERY TENDER CPT-LR Lesion Removal 16:22:01 [employer]TAIN [employer]ERY TENDER CPT-18857 TSH - LAB USE ONLY 14:26:02 CDT CPT-88413 CMP - LAB USE ONLY 14:26:01 CDT CPT-95107 CBC with Diff - LAB USE ONLY 14:26:01 CDT 2 CPT-23648 Venipuncture Draw Fee 14:26:01 CDT CPT-72045 First Vx - Ix admin for Medicare patients 13:27:08 CDT CPT-54951 Fluzone High-Dose Intramuscular Suspension 11/26 13:27:08 CDT CPT-G0438 Initial Annual Wellness Exam 14:19:57 CD T CPT-G0009 Administration of Pneumococcal Vaccine 9 11:36:25 CDT CPT-73469 Prevnar 13 Intramuscular Suspension 1 1:36:25 CDT CPT-79436 Prevnar 13 Intramuscular Suspension 1 0:40:58 CDT CPT-J0897 Prolia 60 mg 10:37:16 CDT CPT-97572 Abx/Therapy Injection 10:37:16 CDT CPT-J0897 Prolia 60 mg 16:09:34 [employer]TAIN [employer] TENDER CPT-J0897 Prolia 60 mg 11:10:35 CAPTAIN [employer]ERY TENDER CPT-22035 Abx/Therapy Injection 11:10:35 CAPTAIN CANNERY TENDER CPT-000 Give Appropriate Flu Vaccine 17:01:15 CAPTAIN CANNERY TENDER 2 CPT-53345 Fluzone High Dose (65+) 15:03:08 CAPTAIN CANNERY TENDER 02/15 CPT-78360 Immunization Single Admin 15:03:08 CAPTAIN CANNERY TENDER 2014 CPT-OV Office Visit 15:58:06 CDT CPT-J0897 Prolia 60 mg 08:45:38 CDT CPT-94582 Abx/Therapy Injection 08:45:38 CDT CPT-J3420 Vitamin B12 1000mcg (Cyanocobalamin) 09:26:20 CAPTAIN CANNERY TENDER CPT-83284 Abx/Therapy Injection 09:26:20 CAPTAIN CANNERY TENDER CPT-J3420 Vitamin B12 1000mcg (Cyanocobalamin) 09:44:40 CAPTAIN CANNERY TENDER CPT-75821 Abx/Therapy Injection 09:44:40 CAPTAIN CANNERY TENDER CPT-J3420 Vitamin B12 1000mcg (Cyanocobalamin) 09:15:54 CAPTAIN CANNERY TENDER CPT-23422 Abx/Therapy Injection 09:15:54 CAPTAIN CANNERY TENDER CPT-J3420 Vitamin B12 1000mcg (Cyanocobalamin) 09:46:44 CAPTAIN CANNERY TENDER CPT-96056 Abx/Therapy Injection 09:46:44 CAPTAIN CANNERY TENDER CPT-J3420 Vitamin B12 1000mcg (Cyanocobalamin) 09:47:34 CAPTAIN CANNERY TENDER CPT-93542 Abx/Therapy Injection 09:47:34 CAPTAIN CANNERY TENDER CPT-J3420 Vitamin B12 1000mcg (Cyanocobalamin) 14:35:50 CAPTAIN CANNERY TENDER CPT-J3420 Vitamin B12 1000mcg (Cyanocobalamin) 09:25:05 CAPTAIN CANNERY TENDER CPT-81513 Abx/Therapy Injection 09:25:05 CAPTAIN CANNERY TENDER CPT-G0008 Administration of Influenza Virus Vaccine 13:36:47 CDT CPT-17698 Fluzone High-Dose Intramuscular Suspension 11/15 13:36:47 CDT CPT-J0897 Prolia 60 mg 08:50:41 CDT CPT-39065 Abx/Therapy Injection 08:50:41 CDT CPT-37650 Bone Density 12:06:12 CDT CPT-00583 Bone Density 08:54:40 CDT CPT-OV Office Visit 15:37:02 CDT CPT-13988 Postop F/U Visit 15:47:49 CDT CPT-80401 Postop F/U Visit 15:21:02 CDT CPT-[facility] Transitional Care Mgmt-High 07:52:27 CDT 20 20/06/01 CPT-76330 Venipuncture Draw Fee 13:51:18 CDT CPT-01797 Venipuncture Draw Fee 10:14:55 CAPTAIN CAN[employer]ERY TENDER CPT-58476 Venipuncture Draw Fee 13:39:45 CAPTAIN CANNERY TENDER CPT-OV Office Visit 15:11:22 CAPTAIN CANNERY TENDER CPT-42962 Venipuncture Draw Fee 09:20:49 CAPTAIN CANNERY TENDER CPT-38924 Venipuncture Draw Fee 16:52:15 CAPTAIN CANNERY TENDER CPT-97515 Venipuncture Draw Fee 10:37:24 CAPTAIN CANNERY TENDER CPT-89084 Venipuncture Draw Fee 08:21:21 CAPTAIN CANNERY TENDER CPT-40660 Venipuncture Draw Fee 08:30:20 CAPTAIN CANNERY TENDER CPT-23578 Venipuncture Draw Fee 14:53:21 CAPTAIN CANNERY TENDER CPT-85843 Venipuncture Draw Fee 09:40:56 CAPTAIN CANNERY TENDER CPT-95215 Venipuncture Draw Fee 10:30:47 CAPTAIN CANNERY TENDER CPT-79350 Venipuncture Draw Fee 10:46:17 CAPTAIN CANNERY TENDER CPT-90102 Venipuncture Draw Fee 11:12:45 CAPTAIN CANNERY TENDER CPT-78103 Venipuncture Draw Fee 09:53:33 CAPTAIN CANNERY TENDER CPT-07263 Venipuncture Draw Fee 11:53:51 CAPTAIN CANNERY TENDER CPT-48460 Venipuncture Draw Fee 10:33:50 CAPTAIN CANNERY TENDER CPT-16859 Venipuncture Draw Fee 10:05:01 CAPTAIN CANNERY TENDER CPT-93957 Venipuncture Draw Fee 14:32:52 CAPTAIN CANNERY TENDER CPT-11430 Venipuncture Draw Fee 09:46:13 CAPTAIN CANNERY TENDER CPT-88923 Venipuncture Draw Fee 11:34:27 CAPTAIN CANNERY TENDER CPT-06762 Venipuncture Draw Fee 13:17:16 CAPTAIN CANNERY TENDER CPT-55758 Venipuncture Draw Fee 12:05:39 CDT CPT-33828 Venipuncture Draw Fee 12:49:12 CDT CPT-54365 Venipuncture Draw Fee 12:37:18 CDT CPT-71232 Venipuncture Draw Fee 10:57:11 CDT CPT-34433 Venipuncture Draw Fee 13:47:40 CDT CPT-55212 Venipuncture Draw Fee 10:02:17 CDT CPT-78445 TB Tubersol 17:32:32 CDT CPT-OV Office Visit 16:21:53 CDT CPT-OV Office Visit 15:49:22 CDT CPT-OV Office Visit 17:16:31 CDT CPT-OV Office Visit 10:43:31 CDT
--- OUTSIDE RECORDS SUMMARY | 2019-02-09 12:33 | XMS REPORT | Clinical Summary ---
Author Author Florecita Macario Organization [facility] Address Unknown Phone Unavailable Allergies, Adverse [...] LOWER QUADRANT ICD-789.03 Inactive Kina Joshua APRN ABDOMINAL PAIN, GENERALIZED ICD-789.07 Inactive Hope Benavidez MD PhD FEVER UNSPECIFIED ICD-780.60 Inactive Hope cohn MD PhD UNSPECIFIED VENOUS INSUFFICIENCY ICD-459.81 [place] ctive Adam Yates MD ADENOCARCINOMA, 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 Inac tive Hope Benavidez MD PhD Hyperkalemia ICD-276.7 Inactive Hope Benavidez MD PhD Health maintenance exam ICD-V70.0 Bam Yates MD ADENOCARCINOMA, COLON, 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 Dick Yates MD Weakness ICD-780.79 Inactive Hope Benavidez MD P hD Asymptomatic postmenopausal status (age-related) (natural) I CD-V49.81 Inactive Hope Benavidez MD PhD Dysuria ICD-788.1 Inactive Hope Benavidez MD PhD 201 05/19/01 Aftercare following surgery of the teeth,oral cavity a nd digestive system, NEC ICD-V58.75 Inactive Adam Yates MD Colon cancer ICD-153.9 Bam luna MD Medication List Medication Instructions Start Date Stop Date Generic Name NDC Status Provider Patient Instruction PROPRANOLOL HCL 80 MG TABS 1 tab tue. and thur. 04/10 PROPRANOLOL HCL 83071575103 No Longer Active Hope Benavidez MD PhD A ctive IRON 325 (65 FE) MG TABS 1 every other day FERROUS SULFATE 15298475644 Active Hope Benavidez MD PhD Active VITAMIN D3 4000 IU 1 tab 3 times daily VITAMIN D3 4000 IU No Longer Active Hope Benavidez MD PhD Active CYANOCOBALAMIN 1000 MCG/ML INJ SOLN 1 injection every 2 weeks 01/09 CYANOCOBALAMIN 93183142480 Active Laura Elder Active BACTRIM DS 800-160 MG TABS 1 pill by mouth twice daily, for UTI SULFAMETHOXAZOLE-TRIMETHOPRIM 93226918377 No Longer Active A attila Benavidez MD PhD Active PROLIA 60 MG/ML SOLN 1 shot every 6 months for osteoprosis DENOSUMAB 76953612534 Active Hope Benavidez MD PhD Active CALCIUM + D + K 750-500-40 MG-UNT-MCG TABS 1 tab by mouth tw ice daily CALCIUM-VITAMIN D-VITAMIN K 98567392575 Active Hope landers MD PhD Active DAILY VALUE MULTIVITAMIN TABS 1 tab by mouth twice daily MULTIPLE VITAMIN 54941647005 Active Hope Benavidez MD PhD Active FISH OIL 306 MG CAPS 1 tab by mouth three times daily OMEGA-3 FATTY ACIDS 05142223776 Active Hope Benavidez MD PhD Active LUTEIN 10 MG TABS 1 tab daily LUTEIN 98549152134 Act cash Hope Benavidez MD PhD Active FLORANEX PACK 1 pack three times daily, for bowel health LACTOBACILLUS 46983694408 Active Hope Benavidez MD PhD Active LOMOTIL 2.5-0.025 MG TABS 1 tab by mouth prn DIPHENOXYLATE-ATROPINE 08142455074 Active Hope Benavidez MD PhD Active TRIAMTERENE-HCTZ 37.5-25 MG TABS 1 tab by mouth daily TRIAMTERENE-HCTZ 42634776306 Active Hope Benavidez MD PhD Acti ve MAGNESIUM GLUCONATE 250 MG TABS 1 tab tid MAGN ESIUM GLUCONATE 53528104735 Active Adam Yates MD Active ATENOLOL 50 MG TABS 1/2 tab q other day m-w-f ATE NOLOL 57600546428 Active Hope Benavidez MD PhD Active CYCLOBENZAPRINE HCL 10 MG TABS 1 tablet by mouth three times daily as needed for headaches CYCLOBENZAPRINE HCL 55231366966 No Longe r Active Adam Yates MD Active OMEPRAZOLE 20 MG CPDR 1 tablet by mouth daily for GERD OMEPRAZOLE 82061076475 No Longer Active Adam Yates MD A ctive ZOFRAN 8 MG TABS 1 tab by mouth every 12 hours prn 201 05/16/09 ONDANSETRON HCL 28480510842 No Longer Active Adam Yates MD Active PHENADOZ 25 MG SUPP 1 every 4 hrs. PRN PROMETHA ZINE HCL 12007149079 No Longer Active Adam Yates MD Active POTASSIUM CHLORIDE 20 MEQ PACK by mouth twice a day prn POTASSIUM CHLORIDE 73980913835 No Longer Active Adam Yates MD Active PROMETHAZINE HCL 25 MG TABS 1 Q. 4 hr. PRN PROM ETHAZINE HCL 26003980228 No Longer Active Adam Yates MD Active INNOPRAN XL 120 MG [id number] Take one by mouth daily 2 PROPRANOLOL HCL SR BEADS 59434837169 No Longer Active Adam Yates MD A ctive FLAGYL 500 MG TABS 1 pill by mouth three times daily, for diarrh ea METRONIDAZOLE 48441313031 No Longer Active Hope Benavidez MD PhD Active DYAZIDE 37.5-25 MG CAPS 1 qd TRIAMTERENE-HC TZ 62891807015 No Longer Active Hope Benavidez MD PhD Active PROZAC 20 MG CAPS 1 q d FLUOXETINE HCL 58319 615718 No Longer Active Hope Benavidez MD PhD Active SIMVASTATIN 40 MG TABS 1 qd SIMVASTATIN 004 47793203 No Longer Active Adam Yates MD Active MELOXICAM 15 MG TABS 1 qd MELOXICAM 0189305 3758 No Longer Active Adam Yates MD Active IMODIUM A-D 2 MG TABS 2 onset at diarrhea and prn. LOPERAMIDE HCL 64141343207 Active Hope Benavidez MD PhD Active EXCEDRIN EXTRA STRENGTH 250-250-65 MG TABS 1-2 q6h PRN headache 201 04/16/21 [id number] 59217068872 Active Hope Benavidez MD PhD Active FLAGYL 500 MG TABS 1 qid METRONIDAZOLE 84889 459395 No Longer Active Adam Yates MD Active LEVAQUIN 750 MG TABS 1 qd LEVOFLOXACIN 5486 4379128 No Longer Active Adam Yates MD Active ADULT ASPIRIN LOW STRENGTH 81 MG TBDP 1 qd A SPIRIN 04856536184 Active Hope Benavidez MD PhD Active LEVAQUIN 750 MG TABS 1 qd LEVAQUIN 750 MG T ABS 846037 LEVOFLOXACIN Inactive FLAGYL 500 MG TABS 1 qid FLAGYL 500 MG TABS 675625 METRONIDAZOLE Inactive MELOXICAM 15 MG TABS 1 qd MELOXICAM 15 MG T ABS 909319 MELOXICAM Inactive SIMVASTATIN 40 MG TABS 1 qd SIMVASTATIN 40 MG TABS 418830 SIMVASTATIN Inactive PROZAC 20 MG CAPS 1 q d PROZAC 20 MG CAPS 31 0385 FLUOXETINE HCL Inactive DYAZIDE 37.5-25 MG CAPS 1 qd DYAZIDE 37.5 -25 MG CAPS 184958 TRIAMTERENE-HCTZ Inactive INNOPRAN XL 120 MG [id number] Take one by mouth daily 2 INNOPRAN XL 120 MG [id number] PROPRANOLOL HCL SR BEADS Inactive PROMETHAZINE HCL 25 MG TABS 1 Q. 4 hr. PRN PROMETHAZINE HCL 25 MG TABS 978568 PROMETHAZINE HCL Inactive POTASSIUM CHLORIDE 20 MEQ PACK by mouth twice a day prn POTASSIUM CHLORIDE 20 MEQ PACK 729603 POTASSIUM CHLORIDE Inactive PHENADOZ 25 MG SUPP 1 every 4 hrs. PRN PHENADOZ 2 5 MG SUPP 660449 PROMETHAZINE HCL Inactive ZOFRAN 8 MG TABS 1 tab by mouth every 12 hours prn 201 05/16/09 ZOFRAN 8 MG TABS 204040 ONDANSETRON HCL Inactive OMEPRAZOLE 20 MG CPDR 1 tablet by mouth daily for GERD OMEPRAZOLE 20 MG CPDR 153147 OMEPRAZOLE Inactive CYCLOBENZAPRINE HCL 10 MG TABS 1 tablet by mouth three times daily as needed for headaches CYCLOBENZAPRINE HCL 10 MG TABS 476109 CYCLOBENZAPRINE HCL Inactive VITAMIN D3 4000 IU 1 tab 3 times daily VITAMIN D3 4000 IU Inactive PROPRANOLOL HCL 80 MG TABS 1 tab tue. and thur. 04/10 PROPRANOLOL HCL 80 MG TABS 306673 PROPRANOLOL HCL Inactive FLAGYL 500 MG TABS 1 pill by mouth three times daily, for diarrh ea FLAGYL 500 MG TABS 678366 METRONIDAZOLE Inactive BACTRIM DS 800-160 MG TABS [...] Range Description Chart Maintenance: labs added to [employer] et - Chemistry magnesium, serum 2.0 mg/dL Chart Maintenance: Outside labs entered on [email or web address] - Chemistry sodium, serum 139 mmol/L potassium, serum 3.9 mmol/L blood glucose 85 mg/dL creatinine, serum 1.26 mg/dL aspartate aminotransferase (SGOT), serum 33 U/L alanine aminotransferase (SGPT), serum 44 U/L alkaline phosphatase, serum 127 U/L Chart Maintenance: Outside labs entered on [facility] - Hematology leukocyte count, blood 4.6 10*3/mm3 hemoglobin, blood 13.6 g/dL platelet count 162 10*3/mm3 Lab Report: Basic Metabolic Panel - Chem istry sodium, serum 136 mmol/L 264-758 2586/05/02 potassium, serum 4.1 mmol/L 3.5-5.2 chloride, serum [...] 1.16 mg/dL Lab Report: [facility] - Chemistry sodium, serum 137 mmol/L potassium, serum 3.8 mmol/L blood glucose 79 mg/dL creatinine, serum 1.02 mg/dL magnesium, serum 1.2 mg/dL Lab Report: [facility]/ [facility] - Hematology leukocyte count, blood 8.7 10*3/mm3 hemoglobin, blood 10.8 g/dL platelet count 319 10*3/mm3 Lab Report: CBC W/DIFF, Comp. Metabolic Panel - Chemistry sodium, serum 138 mmol/L 886-370 6830/08/14 potassium, serum 4.0 mmol/L 3.5-5.2 chloride, serum [...] 0.40 mg/dL 0.00-1.00 sodium, serum 136 mmol/L 297-154 2709/04/03 potassium, serum 3.7 mmol/L 3.5-5.2 chloride, serum [...] 0.40 mg/dL 0.00-1.00 sodium, serum 145 mmol/L 573-750 1718/02/02 potassium, serum 4.2 mmol/L 3.5-5.2 chloride, serum [...] 11 .6-14.8 platelet count 155 10^3/MM^3 10*3/mm3 354-737 5917/04/03 leukocyte count, blood 5.6 10^3/MM^3 10*3/mm3 4.6-10.2 [...] 11 .6-14.8 platelet count 246 10^3/MM^3 10*3/mm3 835-861 8642/08/14 leukocyte count, blood 5.8 10^3/MM^3 10*3/mm3 4.6-10.2 [...] Panel - Chemistry cholesterol, serum 209 mg/dL 680-199 6362/09/11 triglyceride, serum, fasting 113 mg/dL 30-200 HDL [...] semiquantitative 7.0 5.0-8.5 Lab Report: VITAMIN D, 25-HYDROXY/68605, MAGNESIUM/622 - Chemistry vitamin D 25-hydroxy, serum 41 ng/mL 30-100 Encounters Code Encounter Date Provider Facility CPT-34982 Level 4 Est. Patient 12:08:30 [employer] Hope cohn MD PhD [facility] CPT-46231 Level 4 Est. Patient 19:08:42 [employer] Hope cohn MD PhD [facility] CPT-08722 Level 4 Est. Patient 20:04:51 CDT Hope cohn MD PhD [facility] CPT-35323 Level 3 New Patient 01:46:11 [employer] Hope landers MD PhD [facility] Procedures Code Procedure Name Date Entry Date Standard Desc ription CPT-J3420 Vitamin B12 1000mcg (Cyanocobalamin) 09:26:20 [employer] CPT-68248 Abx/Therapy Injection 09:26:20 [employer] CPT-J3420 Vitamin B12 1000mcg (Cyanocobalamin) 09:44:40 [employer] CPT-63204 Abx/Therapy Injection 09:44:40 [employer] CPT-J3420 Vitamin B12 1000mcg (Cyanocobalamin) 09:15:54 [employer] CPT-59602 Abx/Therapy Injection 09:15:54 [employer] CPT-J3420 Vitamin B12 1000mcg (Cyanocobalamin) 09:46:44 [employer] CPT-58727 Abx/Therapy Injection 09:46:44 [employer] CPT-J3420 Vitamin B12 1000mcg (Cyanocobalamin) 09:47:34 [employer] CPT-87505 Abx/Therapy Injection 09:47:34 [employer] CPT-J3420 Vitamin B12 1000mcg (Cyanocobalamin) 14:35:50 [employer] CPT-J3420 Vitamin B12 1000mcg (Cyanocobalamin) 09:25:05 [employer] CPT-01429 Abx/Therapy Injection 09:25:05 [employer] CPT-G0008 Administration of Influenza Virus Vaccine 13:36:47 CDT CPT-02843 Fluzone High-Dose Intramuscular Suspension 11/15 13:36:47 CDT CPT-J0897 Prolia 60 mg 08:50:41 CDT CPT-47821 Abx/Therapy Injection 08:50:41 CDT CPT-45840 Bone Density 12:06:12 CDT CPT-43577 Bone Density 08:54:40 CDT CPT-OV Office Visit 15:37:02 CDT CPT-65120 Postop F/U Visit 15:47:49 CDT CPT-88223 Postop F/U Visit 15:21:02 CDT CPT-TCMH Transitional Care Mgmt-High 07:52:27 CDT 20 20/06/01 CPT-27499 Venipuncture Draw Fee 13:51:18 CDT CPT-30475 Venipuncture Draw Fee 10:14:55 [employer] CPT-08524 Venipuncture Draw Fee 13:39:45 [employer] CPT-OV Office Visit 15:11:22 [employer] CPT-18241 Venipuncture Draw Fee 09:20:49 [employer] CPT-25967 Venipuncture Draw Fee 16:52:15 [employer] CPT-84926 Venipuncture Draw Fee 10:37:24 [employer] CPT-90757 Venipuncture Draw Fee 08:21:21 [employer] CPT-16989 Venipuncture Draw Fee 08:30:20 [employer] CPT-49827 Venipuncture Draw Fee 14:53:21 [employer] CPT-30059 Venipuncture Draw Fee 09:40:56 [employer] CPT-54891 Venipuncture Draw Fee 10:30:47 [employer] CPT-49724 Venipuncture Draw Fee 10:46:17 [employer] CPT-68336 Venipuncture Draw Fee 11:12:45 [employer] CPT-42258 Venipuncture Draw Fee 09:53:33 [employer] CPT-36211 Venipuncture Draw Fee 11:53:51 [employer] CPT-36519 Venipuncture Draw Fee 10:33:50 [employer] CPT-91178 Venipuncture Draw Fee 10:05:01 [employer] CPT-80431 Venipuncture Draw Fee 14:32:52 [employer] CPT-43575 Venipuncture Draw Fee 09:46:13 [employer] CPT-65685 Venipuncture Draw Fee 11:34:27 [employer] CPT-72533 Venipuncture Draw Fee 13:17:16 [employer] CPT-76405 Venipuncture Draw Fee 12:05:39 CDT CPT-23761 Venipuncture Draw Fee 12:49:12 CDT CPT-99122 Venipuncture Draw Fee 12:37:18 CDT CPT-71656 Venipuncture Draw Fee 10:57:11 CDT CPT-23936 Venipuncture Draw Fee 13:47:40 CDT CPT-35854 Venipuncture Draw Fee 10:02:17 CDT CPT-63565 TB Tubersol 17:32:32 CDT CPT-OV Office Visit 16:21:53 CDT CPT-OV Office Visit 15:49:22 CDT CPT-OV Office Visit 17:16:31 CDT CPT-OV Office Visit 10:43:31 CDT
--- OUTSIDE RECORDS SUMMARY | 2019-02-09 12:33 | XMS REPORT | Clinical Summary ---
Author Author Renaldo, Florecita Munoz Organization [facility] Address Unknown Phone Unavailable Allergies, Adverse Reactions, [...] PhD Hyperpotassemia GERD 530.81 Resolved Kylie Yokum CMV DRIVER Esophageal reflux Health maintenance exam V70.0 Resolved Adolfo Yates MD Routine general medical examination at a health care facility Anemia 285.9 Resolved Kylie Holt CMV DRIVER Anemia, unspecified Personal history of malignant neoplasm [...] Sebaceous cyst, scalp 706.2 Resolved Kylie Holt CMV DRIVER Sebaceous cyst Cervical lymphadenopathy, anterior, left 785.6 Resolv ed Kylie Holt CMV DRIVER Enlargement of lymph nodes Need for prophylactic vaccination and inoculation against in fluenza V04.81 Resolved Adam Yates MD Need for prophylactic vaccination and inoculation against influenza Preventive health care V70.0 Active Kylie Holt CMV DRIVER Routine general medical examination at a health care facility Thyroid nodule, left 241.0 Active Kylie Holt A PRN Nontoxic uninodular goiter Screening mammogram V76.12 Active Kylie Holt AP RN Other screening mammogram Mandy 706.2 Active Adam Yates MD Sebaceous cyst ABDOMINAL PAIN, RIGHT LOWER QUADRANT ICD-789.03 Inactive Kina Joshua CMV DRIVER ADENOCARCINOMA, COLON, 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 Dick Yates MD ABDOMINAL PAIN, GENERALIZED ICD-789.07 Inactive Hope Benavidez MD PhD FEVER UNSPECIFIED ICD-780.60 Inactive Hope cohn MD PhD UNSPECIFIED VENOUS INSUFFICIENCY ICD-459.81 [place] ctive Adam Yates MD ADENOCARCINOMA, 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 Inac tive Hope Benavidez MD PhD Hyperkalemia ICD-276.7 Inactive Hope Benavidez MD PhD GERD ICD-530.81 Inactive Kylie Holt CMV DRIVER 2015 Health maintenance exam ICD-V70.0 Bam Yates MD Anemia ICD-285.9 Inactive Kylie Holt CMV DRIVER 07/24 Weakness ICD-780.79 Inactive Hope Benavidez MD [...] Sebaceous cyst, scalp ICD-706.2 Inactive Tracy Holt CMV DRIVER Cervical lymphadenopathy, anterior, left ICD-785.6 Inactive Kylie Holt CMV DRIVER Need for prophylactic vaccination and inoculation against in fluenza ICD-V04.81 Bam Yates MD Medication List Medication Instructions Start Date Stop Date Generic Name NDC Status Provider Patient Instruction VITAMIN D3 2000 UNIT ORAL CAPS Melaleuca-One daily CHOLECALCIFEROL 53962539969 Active Kylie Yokum CMV DRIVER Active PROBIOTIC DAILY ORAL CAPS Take one daily PROBIOTIC PRODUCT 29560184102 Active Kylie Holt CMV DRIVER Active IRON 325 (65 FE) MG TABS 1 every other day FERR OUS SULFATE 75951347684 No Longer Active Kylie Holt CMV DRIVER Active FLORANEX PACK 1 pack three times daily, for bowel health LACTOBACILLUS 37166811726 No Longer Active Kylie Holt CMV DRIVER Active LOMOTIL 2.5-0.025 MG TABS 1 tab by mouth prn 4 DIPHENOXYLATE-ATROPINE 16154446603 No Longer Active Kylie Lundum CMV DRIVER Active MAGNESIUM GLUCONATE 250 MG TABS 1 tab tid 4 MAGNESIUM GLUCONATE 38052809708 No Longer Active Kylie Holt CMV DRIVER Active CYANOCOBALAMIN 1000 MCG/ML INJ SOLN 1 injection every 2 weeks 20 20/01/03 CYANOCOBALAMIN 35558443402 No Longer Active Kylie Holt CMV DRIVER Active ATENOLOL 25 MG ORAL TABS 1/2 pill by mouth daily, for headac hes, blood pressure ATENOLOL 87446871081 Active Kylie Holt CMV DRIVER Active PROPRANOLOL HCL 80 MG TABS 1 tab tue. and thur. 04/10 PROPRANOLOL HCL 21504373921 No Longer Active Hope Benavidez MD PhD A ctive VITAMIN D3 4000 IU 1 tab 3 times daily VITAMIN D3 4000 IU No Longer Active Hope Benavidez MD PhD Active BACTRIM DS 800-160 MG TABS 1 pill by mouth twice daily, for UTI SULFAMETHOXAZOLE-TRIMETHOPRIM 34905194822 No Longer Active A attila Benavidez MD PhD Active PROLIA 60 MG/ML SOLN 1 shot every 6 months for osteoprosis DENOSUMAB 23780193347 Active Hope Benavidez MD PhD Active CALCIUM + D + K 750-500-40 MG-UNT-MCG TABS 1 tab by mouth tw ice daily CALCIUM-VITAMIN D-VITAMIN K 44932624968 Active Hope landers MD PhD Active DAILY VALUE MULTIVITAMIN TABS 1 tab by mouth twice daily MULTIPLE VITAMIN 52813637104 Active Hope Benavidez MD PhD Active FISH OIL 306 MG CAPS 1 tab by mouth three times daily OMEGA-3 FATTY ACIDS 82472177823 Active Hope Benavidez MD PhD Active LUTEIN 10 MG TABS 1 tab daily LUTEIN 85926510383 Act cash Hope Benavidez MD PhD Active TRIAMTERENE-HCTZ 37.5-25 MG TABS 1 tab by mouth daily TRIAMTERENE-HCTZ 26830048601 Active Kylieshubham oHlt CMV DRIVER Active CYCLOBENZAPRINE HCL 10 MG TABS 1 tablet by mouth three times daily as needed for headaches CYCLOBENZAPRINE HCL 55500802194 No Longe r Active Adam Yates MD Active OMEPRAZOLE 20 MG CPDR 1 tablet by mouth daily for GERD OMEPRAZOLE 70064820347 No Longer Active Adam Yates MD A ctive ZOFRAN 8 MG TABS 1 tab by mouth every 12 hours prn 201 05/16/09 ONDANSETRON HCL 11023489588 No Longer Active Adam Yates MD Active PHENADOZ 25 MG SUPP 1 every 4 hrs. PRN PROMETHA ZINE HCL 70161985165 No Longer Active Adam Yates MD Active POTASSIUM CHLORIDE 20 MEQ PACK by mouth twice a day prn POTASSIUM CHLORIDE 18111345187 No Longer Active Adam Yates MD Active PROMETHAZINE HCL 25 MG TABS 1 Q. 4 hr. PRN PROM ETHAZINE HCL 70907579354 No Longer Active Adam Yates MD Active INNOPRAN XL 120 MG [id number] Take one by mouth daily 2 PROPRANOLOL HCL SR BEADS 25350163499 No Longer Active Adam Yates MD A ctive FLAGYL 500 MG TABS 1 pill by mouth three times daily, for diarrh ea METRONIDAZOLE 90060234603 No Longer Active Hope Benavidez MD PhD Active DYAZIDE 37.5-25 MG CAPS 1 qd TRIAMTERENE-HC TZ 14070054972 No Longer Active Hope Benavidez MD PhD Active PROZAC 20 MG CAPS 1 q d FLUOXETINE HCL 52568 657453 No Longer Active Hope Benavidez MD PhD Active SIMVASTATIN 40 MG TABS 1 qd SIMVASTATIN 004 40536043 No Longer Active Adam Yates MD Active MELOXICAM 15 MG TABS 1 qd MELOXICAM 3319935 5133 No Longer Active Adam Yates MD Active IMODIUM A-D 2 MG TABS 2 onset at diarrhea and prn. LOPERAMIDE HCL 50505569589 Active Hope Benavidez MD PhD Active EXCEDRIN EXTRA STRENGTH 250-250-65 MG TABS 1-2 q6h PRN headache 201 04/16/21 [id number] 38396822051 Active Hope Benavidez MD PhD Active FLAGYL 500 MG TABS 1 qid METRONIDAZOLE 90742 734763 No Longer Active Adam Yates MD Active LEVAQUIN 750 MG TABS 1 qd LEVOFLOXACIN 5486 3644097 No Longer Active Adam Yates MD Active ADULT ASPIRIN LOW STRENGTH 81 MG TBDP 1 qd A SPIRIN 40044615938 Active Hope Benavidez MD PhD Active LEVAQUIN 750 MG TABS 1 qd LEVAQUIN 750 MG T ABS 898097 LEVOFLOXACIN Inactive FLAGYL 500 MG TABS 1 qid FLAGYL 500 MG TABS 807178 METRONIDAZOLE Inactive MELOXICAM 15 MG TABS 1 qd MELOXICAM 15 MG T ABS 780020 MELOXICAM Inactive SIMVASTATIN 40 MG TABS 1 qd SIMVASTATIN 40 MG TABS 521162 SIMVASTATIN Inactive PROZAC 20 MG CAPS 1 q d PROZAC 20 MG CAPS 31 0385 FLUOXETINE HCL Inactive DYAZIDE 37.5-25 MG CAPS 1 qd DYAZIDE 37.5 -25 MG CAPS 346237 TRIAMTERENE-HCTZ Inactive INNOPRAN XL 120 MG [id number] Take one by mouth daily 2 INNOPRAN XL 120 MG [id number] PROPRANOLOL HCL SR BEADS Inactive PROMETHAZINE HCL 25 MG TABS 1 Q. 4 hr. PRN PROMETHAZINE HCL 25 MG TABS 280471 PROMETHAZINE HCL Inactive POTASSIUM CHLORIDE 20 MEQ PACK by mouth twice a day prn POTASSIUM CHLORIDE 20 MEQ PACK 946204 POTASSIUM CHLORIDE Inactive PHENADOZ 25 MG SUPP 1 every 4 hrs. PRN PHENADOZ 2 5 MG SUPP 709716 PROMETHAZINE HCL Inactive ZOFRAN 8 MG TABS 1 tab by mouth every 12 hours prn 201 05/16/09 ZOFRAN 8 MG TABS 339186 ONDANSETRON HCL Inactive OMEPRAZOLE 20 MG CPDR 1 tablet by mouth daily for GERD OMEPRAZOLE 20 MG CPDR 472010 OMEPRAZOLE Inactive CYCLOBENZAPRINE HCL 10 MG TABS 1 tablet by mouth three times daily as needed for headaches CYCLOBENZAPRINE HCL 10 MG TABS 087577 CYCLOBENZAPRINE HCL Inactive VITAMIN D3 4000 IU 1 tab 3 times daily VITAMIN D3 4000 IU Inactive PROPRANOLOL HCL 80 MG TABS 1 tab tue. and thur. 04/10 PROPRANOLOL HCL 80 MG TABS 011114 PROPRANOLOL HCL Inactive CYANOCOBALAMIN 1000 MCG/ML INJ SOLN 1 injection every 2 weeks 20 20/01/03 CYANOCOBALAMIN 1000 MCG/ML INJ SOLN 706666 CYANOCOBALAM IN Inactive MAGNESIUM GLUCONATE 250 MG TABS 1 tab tid 4 MAGNESIUM GLUCONATE 250 MG TABS 098337 MAGNESIUM GLUCONATE Inactive LOMOTIL 2.5-0.025 MG TABS 1 tab by mouth prn 4 LOMOTIL 2.5- 0.025 MG TABS 7754780 DIPHENOXYLATE-ATROPINE Inactive FLORANEX PACK 1 pack three times daily, for bowel health FLORANEX PACK LACTOBACILLUS Inactive IRON 325 (65 FE) MG TABS 1 every other day IRON 325 (65 FE) MG TABS 850514 FERROUS SULFATE Inactive FLAGYL 500 MG TABS 1 pill by mouth three times daily, for diarrh ea FLAGYL 500 MG TABS 370243 METRONIDAZOLE Inactive BACTRIM DS 800-160 MG TABS 1 pill by mouth twice daily, for UTI BACTRIM DS 800-160 MG TABS 810404 SULFAMETHOXAZOLE-TRIM ETHOPRIM Inactive Advance Directives Directive Description [...] Panel - Chemistry sodium, serum 142 mmol/L 749-111 6123/04/20 carbon dioxide, venous blood 34.7 mmol/L 21.0-32 [...] ... - Chemistry sodium, serum 139 mmol/L 116-962 6857/10/20 carbon dioxide, venous blood 32.2 mmol/L 21.0-32 [...] ng/mL Encounters Code Encounter Date Provider Facility CPT-69545 Level 3 New Patient 16:22:01 DAIRY EQUIPMENT INSTALLER Adam Yates MD [facility] CPT-17062 Level 4 Est. Patient 17:00:48 CDT [facility] CPT-76460 Level 3 Est. Patient 13:15:54 CDT [facility] [place] CPT-98936 Level 3 Est. Patient 09:10:11 CDT [facility] CPT-24370 Level 4 Est. Patient 12:08:30 DAIRY EQUIPMENT INSTALLER Hope cohn MD PhD [facility] CPT-09486 Level 4 Est. Patient 19:08:42 DAIRY EQUIPMENT INSTALLER Hope cohn MD PhD [facility] CPT-49125 Level 4 Est. Patient 20:04:51 CDT Hope cohn MD PhD [facility] CPT-73361 Level 3 New Patient 01:46:11 DAIRY EQUIPMENT INSTALLER Hope landers MD PhD [facility] Procedures Code Procedure Name Date Entry Date Standard Desc ription CPT-66636 Lipid - LAB USE ONLY 10:01:52 DAIRY EQUIPMENT INSTALLER 2 CPT-70212 Calcium - LAB USE ONLY 10:01:51 DAIRY EQUIPMENT INSTALLER CPT-46625 Venipuncture Draw Fee 10:01:51 DAIRY EQUIPMENT INSTALLER CPT-LR Lesion Removal 16:22:01 DAIRY EQUIPMENT INSTALLER CPT-90005 TSH - LAB USE ONLY 14:26:02 CDT CPT-68384 CMP - LAB USE ONLY 14:26:01 CDT CPT-00575 CBC with Diff - LAB USE ONLY 14:26:01 CDT 2 CPT-79421 Venipuncture Draw Fee 14:26:01 CDT CPT-80303 First Vx - Ix admin for Medicare patients 13:27:08 CDT CPT-24715 Fluzone High-Dose Intramuscular Suspension 11/26 13:27:08 CDT CPT-G0438 Initial Annual Wellness Exam 14:19:57 CD T CPT-G0009 Administration of Pneumococcal Vaccine 9 11:36:25 CDT CPT-35572 Prevnar 13 Intramuscular Suspension 1 1:36:25 CDT CPT-04009 Prevnar 13 Intramuscular Suspension 1 0:40:58 CDT CPT-J0897 Prolia 60 mg 10:37:16 CDT CPT-93912 Abx/Therapy Injection 10:37:16 CDT CPT-J0897 Prolia 60 mg 16:09:34 DAIRY EQUIPMENT INSTALLER CPT-J0897 Prolia 60 mg 11:10:35 DAIRY EQUIPMENT INSTALLER CPT-91519 Abx/Therapy Injection 11:10:35 DAIRY EQUIPMENT INSTALLER CPT-000 Give Appropriate Flu Vaccine 17:01:15 DAIRY EQUIPMENT INSTALLER 2 CPT-99478 Fluzone High Dose (65+) 15:03:08 DAIRY EQUIPMENT INSTALLER 02/15 CPT-22075 Immunization Single Admin 15:03:08 DAIRY EQUIPMENT INSTALLER 2014 CPT-OV Office Visit 15:58:06 CDT CPT-J0897 Prolia 60 mg 08:45:38 CDT CPT-63314 Abx/Therapy Injection 08:45:38 CDT CPT-J3420 Vitamin B12 1000mcg (Cyanocobalamin) 09:26:20 DAIRY EQUIPMENT INSTALLER CPT-52528 Abx/Therapy Injection 09:26:20 DAIRY EQUIPMENT INSTALLER CPT-J3420 Vitamin B12 1000mcg (Cyanocobalamin) 09:44:40 DAIRY EQUIPMENT INSTALLER CPT-94989 Abx/Therapy Injection 09:44:40 DAIRY EQUIPMENT INSTALLER CPT-J3420 Vitamin B12 1000mcg (Cyanocobalamin) 09:15:54 DAIRY EQUIPMENT INSTALLER CPT-25265 Abx/Therapy Injection 09:15:54 DAIRY EQUIPMENT INSTALLER CPT-J3420 Vitamin B12 1000mcg (Cyanocobalamin) 09:46:44 DAIRY EQUIPMENT INSTALLER CPT-28638 Abx/Therapy Injection 09:46:44 DAIRY EQUIPMENT INSTALLER CPT-J3420 Vitamin B12 1000mcg (Cyanocobalamin) 09:47:34 DAIRY EQUIPMENT INSTALLER CPT-21900 Abx/Therapy Injection 09:47:34 DAIRY EQUIPMENT INSTALLER CPT-J3420 Vitamin B12 1000mcg (Cyanocobalamin) 14:35:50 DAIRY EQUIPMENT INSTALLER CPT-J3420 Vitamin B12 1000mcg (Cyanocobalamin) 09:25:05 DAIRY EQUIPMENT INSTALLER CPT-16337 Abx/Therapy Injection 09:25:05 DAIRY EQUIPMENT INSTALLER CPT-G0008 Administration of Influenza Virus Vaccine 13:36:47 CDT CPT-51481 Fluzone High-Dose Intramuscular Suspension 11/15 13:36:47 CDT CPT-J0897 Prolia 60 mg 08:50:41 CDT CPT-33381 Abx/Therapy Injection 08:50:41 CDT CPT-92189 Bone Density 12:06:12 CDT CPT-24633 Bone Density 08:54:40 CDT CPT-OV Office Visit 15:37:02 CDT CPT-01939 Postop F/U Visit 15:47:49 CDT CPT-87378 Postop F/U Visit 15:21:02 CDT CPT-[facility] Transitional Care Mgmt-High 07:52:27 CDT 20 20/06/01 CPT-66666 Venipuncture Draw Fee 13:51:18 CDT CPT-02611 Venipuncture Draw Fee 10:14:55 DAIRY EQUIPMENT INSTALLER CPT-92329 Venipuncture Draw Fee 13:39:45 DAIRY EQUIPMENT INSTALLER CPT-OV Office Visit 15:11:22 DAIRY EQUIPMENT INSTALLER CPT-82519 Venipuncture Draw Fee 09:20:49 DAIRY EQUIPMENT INSTALLER CPT-00306 Venipuncture Draw Fee 16:52:15 DAIRY EQUIPMENT INSTALLER CPT-55045 Venipuncture Draw Fee 10:37:24 DAIRY EQUIPMENT INSTALLER CPT-54229 Venipuncture Draw Fee 08:21:21 DAIRY EQUIPMENT INSTALLER CPT-18959 Venipuncture Draw Fee 08:30:20 DAIRY EQUIPMENT INSTALLER CPT-29048 Venipuncture Draw Fee 14:53:21 DAIRY EQUIPMENT INSTALLER CPT-34196 Venipuncture Draw Fee 09:40:56 DAIRY EQUIPMENT INSTALLER CPT-42275 Venipuncture Draw Fee 10:30:47 DAIRY EQUIPMENT INSTALLER CPT-32251 Venipuncture Draw Fee 10:46:17 DAIRY EQUIPMENT INSTALLER CPT-93166 Venipuncture Draw Fee 11:12:45 DAIRY EQUIPMENT INSTALLER CPT-80959 Venipuncture Draw Fee 09:53:33 DAIRY EQUIPMENT INSTALLER CPT-22152 Venipuncture Draw Fee 11:53:51 DAIRY EQUIPMENT INSTALLER CPT-31565 Venipuncture Draw Fee 10:33:50 DAIRY EQUIPMENT INSTALLER CPT-69119 Venipuncture Draw Fee 10:05:01 DAIRY EQUIPMENT INSTALLER CPT-83527 Venipuncture Draw Fee 14:32:52 DAIRY EQUIPMENT INSTALLER CPT-45001 Venipuncture Draw Fee 09:46:13 DAIRY EQUIPMENT INSTALLER CPT-56045 Venipuncture Draw Fee 11:34:27 DAIRY EQUIPMENT INSTALLER CPT-75446 Venipuncture Draw Fee 13:17:16 DAIRY EQUIPMENT INSTALLER CPT-98555 Venipuncture Draw Fee 12:05:39 CDT CPT-55787 Venipuncture Draw Fee 12:49:12 CDT CPT-02184 Venipuncture Draw Fee 12:37:18 CDT CPT-45436 Venipuncture Draw Fee 10:57:11 CDT CPT-59727 Venipuncture Draw Fee 13:47:40 CDT CPT-06140 Venipuncture Draw Fee 10:02:17 CDT CPT-18708 TB Tubersol 17:32:32 CDT CPT-OV Office Visit 16:21:53 CDT CPT-OV Office Visit 15:49:22 CDT CPT-OV Office Visit 17:16:31 CDT CPT-OV Office Visit 10:43:31 CDT
--- OUTSIDE RECORDS SUMMARY | 2019-02-09 12:34 | XMS REPORT | Clinical Summary ---
Author Author Admin, Florecita Munoz Organization [facility] Address Unknown Phone Unavailable Allergies, Adverse Reactions, [...] Sebaceous cyst, scalp 706.2 Resolved Kylie Yokum SPLICER HELPER Sebaceous cyst Cervical lymphadenopathy, anterior, left 785.6 Resolv ed Yklie Yokum SPLICER HELPER Enlargement of lymph nodes Need for prophylactic vaccination and inoculation against in fluenza V04.81 Resolved Adam Yates MD Need for prophylactic vaccination and inoculation against influenza Preventive health care V70.0 Active Kylie Yokum SPLICER HELPER Routine general medical examination at a health care facility Thyroid nodule, left 241.0 Active Kylie Yokum A PRN Nontoxic uninodular goiter Screening mammogram V76.12 Active Kylie Lundum AP RN Other screening mammogram Mandy 706.2 Resolved Kylie Yokum SPLICER HELPER Sebaceous cyst Colon cancer, ascending 153.6 Resolved Kylie Yok um SPLICER HELPER Malignant neoplasm of ascending colon Foot pain, left 729.5 Active Sulema Naff [employer] Pain in limb Splinter 919.6 Active Kylie Yokum SPLICER HELPER Superficial foreign body (splinter) of other, multiple, and unspecified sites, without major open wound and without mention of infection ABDOMINAL PAIN, RIGHT LOWER QUADRANT ICD-789.03 Inactive Kina Joshua SPLICER HELPER ADENOCARCINOMA, COLON, 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 Dick Yates MD FEVER UNSPECIFIED ICD-780.60 Inactive Hope cohn MD PhD UNSPECIFIED VENOUS INSUFFICIENCY ICD-459.81 [place] ctive Adam Yates MD ADENOCARCINOMA, 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 Inac abdelrahman Benavidez MD PhD Hyperkalemia ICD-276.7 Inactive Hope Benavidez MD PhD ABDOMINAL PAIN, GENERALIZED ICD-789.07 Inactive Hope Benavidez MD PhD Health maintenance exam ICD-V70.0 Inactive Adolfo Yates MD Anemia ICD-285.9 Inactive Kylie Yokum SPLICER HELPER 07/24 GERD ICD-530.81 Inactive Kylie Yokum SPLICER HELPER 2015 Weakness ICD-780.79 Inactive Hope Benavidez MD P Colon cancer ICD-153.9 Inactive Adam luna MD Asymptomatic postmenopausal status (age-related) (natural) I CD-V49.81 Inactive Hope Benavidez MD PhD Diarrhea, functional ICD-564.5 Inactive Selena Yates MD Dysuria ICD-788.1 Inactive Hope Benavidez MD PhD 201 05/19/01 Adenocarcinoma, ascending colon ICD-153.6 Inac abdelrahman Yates MD Sebaceous cyst, scalp ICD-706.2 Inactive Tracy hi Yokum SPLICER HELPER Cervical lymphadenopathy, anterior, left ICD-785.6 Inactive Kylie Yokum SPLICER HELPER Need for prophylactic vaccination and inoculation against in fluenza ICD-V04.81 Inactive Adam Yates MD Mandy ICD-706.2 Inactive Kylie Lundum SPLICER HELPER 07/20 Colon cancer, ascending ICD-153.6 Inactive K umang Holt SPLICER HELPER Hypomagnesemia ICD-275.2 Inactive Kylie Lundum SPLICER HELPER Aftercare following surgery of the teeth,oral cavity a nd digestive system, NEC ICD-V58.75 Inactive Adam Yates MD Medication List Medication Instructions Start Date Stop Date Generic Name NDC Status Provider Patient Instruction COQ10 100 MG ORAL CAPSULE 1 daily COENZYME Q10 935199 73195 Active LETY Nation Active VITAMIN D3 2000 UNIT ORAL CAPSULE Melaleuca-One daily CHOLECALCIFEROL 98582630344 Active Kylie Lundum SPLICER HELPER Active PROBIOTIC DAILY ORAL CAPSULE Take one daily PROBIO TIC PRODUCT 94508609360 Active Kylie Escalonakum SPLICER HELPER Active IRON 325 (65 Fe) MG ORAL TABLET 1 every other day FERROUS SULFATE 34434687797 No Longer Active Kylie Yokum SPLICER HELPER Active FLORANEX ORAL PACKET 1 pack three times daily, for bowel health LACTOBACILLUS 75480644463 No Longer Active Kylie Escalonakum SPLICER HELPER Active LOMOTIL 2.5-0.025 MG ORAL TABLET 1 tab by mouth prn 23/10/23 DIPHENOXYLATE-ATROPINE 55845527452 No Longer Active Kylie Yokum SPLICER HELPER Active MAGNESIUM GLUCONATE 250 MG ORAL TABLET 1 tab tid 23/10/23 MAGNESIUM GLUCONATE 72672240934 No Longer Active Kylie Yokum SPLICER HELPER Active CYANOCOBALAMIN 1000 MCG/ML INJECTION SOLUTION 1 injection ev ruben 2 weeks CYANOCOBALAMIN 48112322954 No Longer Active Kylie Yok um SPLICER HELPER Active ATENOLOL 25 MG ORAL TABLET 1/2 pill by mouth daily, fo r headaches, blood pressure ATENOLOL 81120898946 Active Kylieshubham Holt SPLICER HELPER Active PROPRANOLOL HCL 80 MG ORAL TABLET 1 tab tue. and thur. PROPRANOLOL HCL 06275891753 No Longer Active Hope Benavidez MD PhD A ctive VITAMIN D3 4000 IU 1 tab 3 times daily VITAMIN D3 4000 IU No Longer Active Hope Benavidez MD PhD Active BACTRIM DS 800-160 MG ORAL TABLET 1 pill by mouth twice claudio y, for UTI SULFAMETHOXAZOLE-TRIMETHOPRIM 08935030948 No Longer Active Hoep Benavidez MD PhD Active PROLIA 60 MG/ML SUBCUTANEOUS SOLUTION 1 shot every 6 months for osteoprosis DENOSUMAB 36377093379 Active Hope Benavidez MD PhD Active CALCIUM + D + K 750-500-40 MG-UNT-MCG ORAL TABLET 1 tab by m out twice daily CALCIUM-VITAMIN D-VITAMIN K 34705096168 Active Hope valdez MD PhD Active DAILY VALUE MULTIVITAMIN ORAL TABLET 1 tab by mouth twice daily 201 05/16/14 MULTIPLE VITAMIN 40776629522 Active Hope Benavidez MD PhD Acti ve FISH OIL 306 MG CAPS 1 tab by mouth three times daily OMEGA-3 FATTY ACIDS 89434382184 Active Hope Benavidez MD PhD Active LUTEIN 10 MG ORAL TABLET 1 tab daily LUTEIN 84533511 408 Active Hope Benavidez MD PhD Active TRIAMTERENE-HCTZ 37.5-25 MG ORAL TABLET 1 tab by mouth daily 10/22 TRIAMTERENE-HCTZ 07394148387 Active Kylie Holt SPLICER HELPER Active CYCLOBENZAPRINE HCL 10 MG ORAL TABLET 1 tablet by mout h three times daily as needed for headaches CYCLOBENZAPRINE HCL 90979116488 No Longer Active Adam Yates MD Active OMEPRAZOLE 20 MG ORAL CAPSULE DELAYED RELEASE 1 tablet by mo uth daily for GERD OMEPRAZOLE 45305319830 No Longer Active Adam Yates MD Active ZOFRAN 8 MG ORAL TABLET 1 tab by mouth every 12 hours prn 4 ONDANSETRON HCL 91630249067 No Longer Active Adam Yates MD Active PHENADOZ 25 MG RECTAL SUPPOSITORY 1 every 4 hrs. PRN 2 PROMETHAZINE HCL 72320086778 No Longer Active Adam Yates MD A ctive POTASSIUM CHLORIDE 20 MEQ ORAL PACKET by mouth twice a day prn 2 POTASSIUM CHLORIDE 16010626765 No Longer Active Adam Carpenter MD Active PROMETHAZINE HCL 25 MG ORAL TABLET 1 Q. 4 hr. PRN PROMETHAZINE HCL 92023979932 No Longer Active Adam Yates MD Active INNOPRAN XL 120 MG ORAL CAPSULE EXTENDED RELEASE 24 HO UR Take one by mouth daily PROPRANOLOL HCL SR BEADS 60163895525 No Longer Active Adam Yates MD Active FLAGYL 500 MG ORAL TABLET 1 pill by mouth three times daily, for diarrhea METRONIDAZOLE 97917807079 No Longer Active Hope landers MD PhD Active DYAZIDE 37.5-25 MG ORAL CAPSULE 1 qd TRIA MTERENE-HCTZ 03379659131 No Longer Active Hope Benavidez MD PhD Active PROZAC 20 MG ORAL CAPSULE 1 q d FLUOXETINE HCL 35391519781 No Longer Active Hope Benavidez MD PhD Active SIMVASTATIN 40 MG ORAL TABLET 1 qd SIMVAS TATIN 40953365799 No Longer Active Adam Yates MD Active MELOXICAM 15 MG ORAL TABLET 1 qd MELOXICAM 02754842145 No Longer Active Adam Yates MD Active IMODIUM A-D 2 MG ORAL TABLET 2 onset at diarrhea and prn. LOPERAMIDE HCL 54647807673 Active Hope Benavidez MD PhD Active EXCEDRIN EXTRA STRENGTH 250-250-65 MG ORAL TABLET 1-2 q6h AK N headache [id number] 81498330716 Active Hope Benavidez MD PhD Active FLAGYL 500 MG ORAL TABLET 1 qid METRONIDAZOL E 48216794778 No Longer Active Adam Yates MD Active LEVAQUIN 750 MG ORAL TABLET 1 qd LEVOFLOXAC IN 53698195294 No Longer Active Adam Yates MD Active ADULT ASPIRIN LOW STRENGTH 81 MG ORAL TABLET DISINTEGRATING 1 qd ASPIRIN 72758320843 Active Hope Benavidez MD PhD Active LEVAQUIN 750 MG ORAL TABLET 1 qd LEVAQUIN 750 MG ORAL TABLET 388436 LEVOFLOXACIN Inactive FLAGYL 500 MG ORAL TABLET 1 qid FLAGYL 500 MG ORAL TABLET 935021 METRONIDAZOLE Inactive MELOXICAM 15 MG ORAL TABLET 1 qd MELOXICAM 15 MG ORAL TABLET 341798 MELOXICAM Inactive SIMVASTATIN 40 MG ORAL TABLET 1 qd SIMVASTATIN 40 MG ORAL TABLET 222101 SIMVASTATIN Inactive PROZAC 20 MG ORAL CAPSULE 1 q d PROZAC 20 MG ORAL CAPSULE 350550 FLUOXETINE HCL Inactive DYAZIDE 37.5-25 MG ORAL CAPSULE 1 qd 5 DYAZIDE 37.5-25 MG ORAL CAPSULE 620427 TRIAMTERENE-HCTZ Inactive INNOPRAN XL 120 MG ORAL CAPSULE EXTENDED RELEASE 24 HO UR Take one by mouth daily INNOPRAN XL 120 MG ORAL CAPSULE EXTENDED RELEASE 24 HOUR PROPRANOLOL HCL SR BEADS Inactive PROMETHAZINE HCL 25 MG ORAL TABLET 1 Q. 4 hr. PRN 2013 PROMETHAZINE HCL 25 MG ORAL TABLET 480928 PROMETHAZINE HCL Inactive POTASSIUM CHLORIDE 20 MEQ ORAL PACKET by mouth twice a day prn 2 POTASSIUM CHLORIDE 20 MEQ ORAL PACKET 3904448 POTASSIUM CHLORIDE Inactive PHENADOZ 25 MG RECTAL SUPPOSITORY 1 every 4 hrs. PRN PHENADOZ 25 MG RECTAL SUPPOSITORY 243990 PROMETHAZINE HCL Inactive ZOFRAN 8 MG ORAL TABLET 1 tab by mouth every 12 hours prn 4 ZOFRAN 8 MG ORAL TABLET 944003 ONDANSETRON HCL Inactive OMEPRAZOLE 20 MG ORAL CAPSULE DELAYED RELEASE 1 tablet by [facility] daily for GERD OMEPRAZOLE 20 MG ORAL CAPSULE DELAYED RELEASE 19 8051 OMEPRAZOLE Inactive CYCLOBENZAPRINE HCL 10 MG ORAL TABLET 1 tablet by mout h three times daily as needed for headaches CYCLOBENZAPRINE HCL 10 MG ORAL TABLET 952463 CYCLOBENZAPRINE HCL Inactive VITAMIN D3 4000 IU 1 tab 3 times daily VITAMIN D3 4000 IU Inactive PROPRANOLOL HCL 80 MG ORAL TABLET 1 tab tue. and thur. PROPRANOLOL HCL 80 MG ORAL TABLET 783233 PROPRANOLOL HCL Inacti ve CYANOCOBALAMIN 1000 MCG/ML INJECTION SOLUTION 1 injection ev ruben 2 weeks CYANOCOBALAMIN 1000 MCG/ML INJECTION SOLUTION 30 9594 CYANOCOBALAMIN Inactive MAGNESIUM GLUCONATE 250 MG ORAL TABLET 1 tab tid 23/10/23 MAGNESIUM GLUCONATE 250 MG ORAL TABLET 666231 MAGNESIUM GLUCONATE Inactive LOMOTIL 2.5-0.025 MG ORAL TABLET 1 tab by mouth prn 23/10/23 LOMOTIL 2.5-0.025 MG ORAL TABLET 9907636 DIPHENOXYLATE-ATROPINE Inac tive FLORANEX ORAL PACKET 1 pack three times daily, for bowel health FLORANEX ORAL PACKET LACTOBACILLUS Inactive IRON 325 (65 Fe) MG ORAL TABLET 1 every other day 2015 IRON 325 (65 Fe) MG ORAL TABLET 881547 FERROUS SULFATE Inactive FLAGYL 500 MG ORAL TABLET 1 pill by mouth three times daily, for diarrhea FLAGYL 500 MG ORAL TABLET 644177 METRONIDAZOLE I nactive BACTRIM DS 800-160 MG ORAL TABLET 1 pill by mouth twice claudio y, for UTI BACTRIM DS 800-160 MG ORAL TABLET 331508 SULFAMETHOXAZOLE-TRIMETHOPRIM Inactive Advance Directives Directive Description Start [...] 11 .0-15.0 platelet count 157 THOUSAND/UL 10*3/mm3 531-201 1447/04/20 mean platelet volume 8.9 fL 7.5-12.5 Lab Report: CEA - Serology carcinoembryonic antigen 0.9 ng/mL Lab Report: Lipid Panel, Calcium - Chemi stry cholesterol, serum 200 mg/dL 126-235 9991/11/22 triglyceride, serum, fasting 129 mg/dL 30-200 HDL cholesterol, serum 56 mg/dL 32-96 LDL cholesterol, serum 118 mg/dL 0-130 calcium, serum 9.0 mg/dL 8.5-10.1 Lab Report: MicroAlb Random w/creat/6517 - Urinalysis microalbumin/total urine volume 8 mg/L Units converted. See lab report for original value. microalbumin/creatinine ratio, urine 15 MCG/MG CREAT mg/L <30 Encounters Code Encounter Date Provider Facility CPT-19257 Level 3 Est. Patient 17:54:48 CDT Kylie boyd [facility] CPT-13258 Level 3 Est. Patient 16:26:30 CDT Kina blackmon [facility] CPT-70604 Level 3 New Patient 16:22:01 VICE PRESIDENT INDUSTRIAL RELATIONS Adam Yates MD [facility] CPT-89352 Level 4 Est. Patient 17:00:48 CDT Kylie Kevon [facility] CPT-51763 Level 3 Est. Patient 13:15:54 CDT Kylie Escalonagabbi [facility] CPT-21380 Level 3 Est. Patient 09:10:11 CDT Kylieshubham Lund [facility] CPT-25826 Level 4 Est. Patient 12:08:30 VICE PRESIDENT INDUSTRIAL RELATIONS Hope cohn MD [facility] CPT-52977 Level 4 Est. Patient 19:08:42 VICE PRESIDENT INDUSTRIAL RELATIONS Hope cohn MD [facility] CPT-49405 Level 4 Est. Patient 20:04:51 CDT Hope cohn MD [facility] CPT-54238 Level 3 New Patient 01:46:11 VICE PRESIDENT INDUSTRIAL RELATIONS Hope landers MD [facility] Procedures Code Procedure Name Date Entry Date Standard Desc ription CPT-94022 First Vx - Ix admin for Medicare patients 11:19:30 CDT CPT-81637 Fluzone High-Dose Intramuscular Suspension 12/07 11:19:30 CDT CPT-J0897 Prolia 60 mg 14:55:42 CDT CPT-52934 Abx/Therapy Injection 14:55:42 CDT CPT-95234 Bone Density - XRAY USE ONLY 10:27:12 CDT 2 CPT-G0439 [facility] Annual Wellness Exam 17:54:53 CDT CPT-06391 Foot, left, comp min 3V - XRAY USE ONLY 12:22:49 CDT CPT-G0009 Administration of Pneumococcal Vaccine 3 12:18:00 CDT CPT-10810 Pneumovax 23 Injection Injectable 25 MCG /0.5ML 12:18:00 CDT CPT-J0897 Prolia 60 mg 14:14:16 VICE PRESIDENT IND[employer]RIAL RELATIONS CPT-69040 Abx/Therapy Injection 14:14:15 VICE PRESIDENT INDUSTRIAL RELATIONS CPT-79168 Lipid - LAB USE ONLY 10:01:52 VICE PRESIDENT INDUSTRIAL RELATIONS 2 CPT-04441 Calcium - LAB USE ONLY 10:01:51 VICE PRESIDENT INDUSTRIAL RELATIONS CPT-61318 Venipuncture Draw Fee 10:01:51 VICE PRESIDENT INDUSTRIAL RELATIONS CPT-LR Lesion Removal 16:22:01 VICE PRESIDENT INDUSTRIAL RELATIONS CPT-14612 TSH - LAB USE ONLY 14:26:02 CDT CPT-51983 CMP - LAB USE ONLY 14:26:01 CDT CPT-06512 CBC with Diff - LAB USE ONLY 14:26:01 CDT 2 CPT-98746 Venipuncture Draw Fee 14:26:01 CDT CPT-23033 First Vx - Ix admin for Medicare patients 13:27:08 CDT CPT-15236 Fluzone High-Dose Intramuscular Suspension 11/26 13:27:08 CDT CPT-G0438 Initial Annual Wellness Exam 14:19:57 CD T CPT-G0009 Administration of Pneumococcal Vaccine 9 11:36:25 CDT CPT-65421 Prevnar 13 Intramuscular Suspension 1 1:36:25 CDT CPT-41496 Prevnar 13 Intramuscular Suspension 1 0:40:58 CDT CPT-J0897 Prolia 60 mg 10:37:16 CDT CPT-72178 Abx/Therapy Injection 10:37:16 CDT CPT-J0897 Prolia 60 mg 16:09:34 VICE PRESIDENT INDUSTRIAL RELATIONS CPT-J0897 Prolia 60 mg 11:10:35 VICE PRESIDENT INDUSTRIAL RELATIONS CPT-80836 Abx/Therapy Injection 11:10:35 VICE PRESIDENT INDUSTRIAL RELATIONS CPT-000 Give Appropriate Flu Vaccine 17:01:15 VICE PRESIDENT INDUSTRIAL RELATIONS 2 CPT-91328 Fluzone High Dose (65+) 15:03:08 VICE PRESIDENT INDUSTRIAL RELATIONS 02/15 CPT-94889 Immunization Single Admin 15:03:08 VICE PRESIDENT INDUSTRIAL RELATIONS 2014 CPT-OV Office Visit 15:58:06 CDT CPT-J0897 Prolia 60 mg 08:45:38 CDT CPT-29254 Abx/Therapy Injection 08:45:38 CDT CPT-J3420 Vitamin B12 1000mcg (Cyanocobalamin) 09:26:20 VICE PRESIDENT INDUSTRIAL RELATIONS CPT-46071 Abx/Therapy Injection 09:26:20 VICE PRESIDENT INDUSTRIAL RELATIONS CPT-J3420 Vitamin B12 1000mcg (Cyanocobalamin) 09:44:40 VICE PRESIDENT INDUSTRIAL RELATIONS CPT-34570 Abx/Therapy Injection 09:44:40 VICE PRESIDENT INDUSTRIAL RELATIONS CPT-J3420 Vitamin B12 1000mcg (Cyanocobalamin) 09:15:54 VICE PRESIDENT INDUSTRIAL RELATIONS CPT-33614 Abx/Therapy Injection 09:15:54 VICE PRESIDENT INDUSTRIAL RELATIONS CPT-J3420 Vitamin B12 1000mcg (Cyanocobalamin) 09:46:44 VICE PRESIDENT INDUSTRIAL RELATIONS CPT-11200 Abx/Therapy Injection 09:46:44 VICE PRESIDENT INDUSTRIAL RELATIONS CPT-J3420 Vitamin B12 1000mcg (Cyanocobalamin) 09:47:34 VICE PRESIDENT INDUSTRIAL RELATIONS CPT-92980 Abx/Therapy Injection 09:47:34 VICE PRESIDENT INDUSTRIAL RELATIONS CPT-J3420 Vitamin B12 1000mcg (Cyanocobalamin) 14:35:50 VICE PRESIDENT INDUSTRIAL RELATIONS CPT-J3420 Vitamin B12 1000mcg (Cyanocobalamin) 09:25:05 VICE PRESIDENT INDUSTRIAL RELATIONS CPT-02240 Abx/Therapy Injection 09:25:05 VICE PRESIDENT INDUSTRIAL RELATIONS CPT-G0008 Administration of Influenza Virus Vaccine 13:36:47 CDT CPT-71222 Fluzone High-Dose Intramuscular Suspension 11/15 13:36:47 CDT CPT-J0897 Prolia 60 mg 08:50:41 CDT CPT-44730 Abx/Therapy Injection 08:50:41 CDT CPT-04134 Bone Density 12:06:12 CDT CPT-71544 Bone Density 08:54:40 CDT CPT-OV Office Visit 15:37:02 CDT CPT-97965 Postop F/U Visit 15:47:49 CDT CPT-56757 Postop F/U Visit 15:21:02 CDT CPT-[facility] Transitional Care Mgmt-High 07:52:27 CDT 20 20/06/01 CPT-47109 Venipuncture Draw Fee 13:51:18 CDT CPT-76179 Venipuncture Draw Fee 10:14:55 VICE PRESIDENT INDUSTRIAL RELATIONS CPT-86401 Venipuncture Draw Fee 13:39:45 VICE PRESIDENT INDUSTRIAL RELATIONS CPT-OV Office Visit 15:11:22 VICE PRESIDENT INDUSTRIAL RELATIONS CPT-01095 Venipuncture Draw Fee 09:20:49 VICE PRESIDENT INDUSTRIAL RELATIONS CPT-66657 Venipuncture Draw Fee 16:52:15 VICE PRESIDENT INDUSTRIAL RELATIONS CPT-76353 Venipuncture Draw Fee 10:37:24 VICE PRESIDENT INDUSTRIAL RELATIONS CPT-01174 Venipuncture Draw Fee 08:21:21 VICE PRESIDENT INDUSTRIAL RELATIONS CPT-94955 Venipuncture Draw Fee 08:30:20 VICE PRESIDENT INDUSTRIAL RELATIONS CPT-42319 Venipuncture Draw Fee 14:53:21 VICE PRESIDENT INDUSTRIAL RELATIONS CPT-23499 Venipuncture Draw Fee 09:40:56 VICE PRESIDENT INDUSTRIAL RELATIONS CPT-72260 Venipuncture Draw Fee 10:30:47 VICE PRESIDENT INDUSTRIAL RELATIONS CPT-30622 Venipuncture Draw Fee 10:46:17 VICE PRESIDENT INDUSTRIAL RELATIONS CPT-38938 Venipuncture Draw Fee 11:12:45 VICE PRESIDENT INDUSTRIAL RELATIONS CPT-85009 Venipuncture Draw Fee 09:53:33 VICE PRESIDENT INDUSTRIAL RELATIONS CPT-12647 Venipuncture Draw Fee 11:53:51 VICE PRESIDENT INDUSTRIAL RELATIONS CPT-11526 Venipuncture Draw Fee 10:33:50 VICE PRESIDENT INDUSTRIAL RELATIONS CPT-02026 Venipuncture Draw Fee 10:05:01 VICE PRESIDENT INDUSTRIAL RELATIONS CPT-02541 Venipuncture Draw Fee 14:32:52 VICE PRESIDENT INDUSTRIAL RELATIONS CPT-81124 Venipuncture Draw Fee 09:46:13 VICE PRESIDENT INDUSTRIAL RELATIONS CPT-97252 Venipuncture Draw Fee 11:34:27 VICE PRESIDENT INDUSTRIAL RELATIONS CPT-21283 Venipuncture Draw Fee 13:17:16 VICE PRESIDENT INDUSTRIAL RELATIONS CPT-51100 Venipuncture Draw Fee 12:05:39 CDT CPT-57253 Venipuncture Draw Fee 12:49:12 CDT CPT-74374 Venipuncture Draw Fee 12:37:18 CDT CPT-24225 Venipuncture Draw Fee 10:57:11 CDT CPT-06835 Venipuncture Draw Fee 13:47:40 CDT CPT-66957 Venipuncture Draw Fee 10:02:17 CDT CPT-10991 TB Tubersol 17:32:32 CDT CPT-OV Office Visit 16:21:53 CDT CPT-OV Office Visit 15:49:22 CDT CPT-OV Office Visit 17:16:31 CDT CPT-OV Office Visit 10:43:31 CDT
--- OUTSIDE RECORDS SUMMARY | 2019-02-09 12:34 | XMS REPORT | Clinical Summary ---
Author Author Renaldo, Florecita Munoz Organization [facility] Address Unknown Phone Unavailable Allergies, Adverse Reactions, [...] PhD Hyperpotassemia GERD 530.81 Resolved Kylie Yokum AUTOMOTIVE TITLE CLERK Esophageal reflux Health maintenance exam V70.0 Resolved Adolfo Yates MD Routine general medical examination at a health care facility Anemia 285.9 Resolved Klyie Holt AUTOMOTIVE TITLE CLERK Anemia, unspecified Personal history of malignant neoplasm of large intestine V10.05 Active Adam Yates MD Personal history of malignant neoplasm of large intestine Hypomagnesemia 275.2 Resolved Kylie Holt AUTOMOTIVE TITLE CLERK Disorders of magnesium metabolism Weakness 780.79 [...] cyst, scalp 706.2 Resolved Kylie Yokum AUTOMOTIVE TITLE CLERK Sebaceous cyst Cervical lymphadenopathy, anterior, left 785.6 Resolv ed Kylie Yokum AUTOMOTIVE TITLE CLERK Enlargement of lymph nodes Need for prophylactic vaccination and inoculation against in fluenza V04.81 Resolved Adam Yates MD Need for prophylactic vaccination and inoculation against influenza Preventive health care V70.0 Active Kylie Yokum AUTOMOTIVE TITLE CLERK Routine general medical examination at a health care facility Thyroid nodule, left 241.0 Active Klyie Yokum A PRN Nontoxic uninodular goiter Screening mammogram V76.12 Active Kylie Yokum AP RN Other screening mammogram Mandy 706.2 Resolved Kylie Yokum AUTOMOTIVE TITLE CLERK Sebaceous cyst Colon cancer, ascending 153.6 Resolved Yklie Yok um AUTOMOTIVE TITLE CLERK Malignant neoplasm of ascending colon Foot pain, left 729.5 Active Sulema Sterlingf LINESPERSON Pain in limb Splinter 919.6 Active Kylie Yokum AUTOMOTIVE TITLE CLERK Superficial foreign body (splinter) of other, multiple, and unspecified sites, without major open wound and without mention of infection Rash 782.1 Active Kylie Yokum AUTOMOTIVE TITLE CLERK R aurora and other nonspecific skin eruption Cyst 706.2 Active Kylie Yokum AUTOMOTIVE TITLE CLERK S ebaceous cyst ABDOMINAL PAIN, RIGHT LOWER QUADRANT ICD-789.03 Inactive Kina Joshua AUTOMOTIVE TITLE CLERK ADENOCARCINOMA, COLON, 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 Dick Yates MD ABDOMINAL PAIN, GENERALIZED ICD-789.07 Inactive Hope Benavidez MD PhD FEVER UNSPECIFIED ICD-780.60 Inactive Hope cohn MD PhD UNSPECIFIED VENOUS INSUFFICIENCY ICD-459.81 [place] ctive Adam Yates MD ADENOCARCINOMA, 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 Inac tive Hope Benavidez MD PhD Hyperkalemia ICD-276.7 Inactive Hope Benavidez MD PhD GERD ICD-530.81 Inactive Kylieshubham Holt AUTOMOTIVE TITLE CLERK 2015 Health maintenance exam ICD-V70.0 Bam Yates MD Anemia ICD-285.9 Inactive Kylieshubham Holt AUTOMOTIVE TITLE CLERK 07/24 Hypomagnesemia ICD-275.2 Inactive Kylie Holt AUTOMOTIVE TITLE CLERK Weakness ICD-780.79 Inactive Hope Benavidez MD [...] Sebaceous cyst, scalp ICD-706.2 Inactive Tracy Holt AUTOMOTIVE TITLE CLERK Cervical lymphadenopathy, anterior, left ICD-785.6 Inactive Kylie Lundum AUTOMOTIVE TITLE CLERK Need for prophylactic vaccination and inoculation against in fluenza ICD-V04.81 Inactive Adam Yates MD Mandy ICD-706.2 Inactive Kylie Lundum AUTOMOTIVE TITLE CLERK 07/20 Colon cancer, ascending ICD-153.6 Inactive Bravo Holt AUTOMOTIVE TITLE CLERK Medication List Medication Instructions Start Date Stop Date Generic Name NDC Status Provider Patient Instruction VOLTAREN 1 % TRANSDERMAL GEL apply q 6-8 hour to left arm as needed for pain DICLOFENAC SODIUM 12040515462 Active Kylie Holt AMY Active COQ10 100 MG ORAL CAPSULE 1 daily COENZYME Q10 415492 65529 Active LETY Nation Active VITAMIN D3 2000 UNIT ORAL CAPSULE Melaleuca-One daily CHOLECALCIFEROL 31585876751 Active Kylie Holt APRN Active PROBIOTIC DAILY ORAL CAPSULE Take one daily PROBIO TIC PRODUCT 17454691076 Active Kylie Holt AMY Active IRON 325 (65 Fe) MG ORAL TABLET 1 every other day FERROUS SULFATE 74101746185 No Longer Active Kylie Holt AMY Active FLORANEX ORAL PACKET 1 pack three times daily, for bowel health LACTOBACILLUS 89138130650 No Longer Active Kylie Holt AUTOMOTIVE TITLE CLERK Active LOMOTIL 2.5-0.025 MG ORAL TABLET 1 tab by mouth prn 23/10/23 DIPHENOXYLATE-ATROPINE 55535195365 No Longer Active Kylie Lundum AUTOMOTIVE TITLE CLERK Active MAGNESIUM GLUCONATE 250 MG ORAL TABLET 1 tab tid 23/10/23 MAGNESIUM GLUCONATE 92374673550 No Longer Active Kylie Lundum AUTOMOTIVE TITLE CLERK Active CYANOCOBALAMIN 1000 MCG/ML INJECTION SOLUTION 1 injection ev ruben 2 weeks CYANOCOBALAMIN 91609874564 No Longer Active Kylie Lund um AUTOMOTIVE TITLE CLERK Active ATENOLOL 25 MG ORAL TABLET 1/2 pill by mouth daily, fo r headaches, blood pressure ATENOLOL 36937670289 Active Kylie Lundum AUTOMOTIVE TITLE CLERK Active PROPRANOLOL HCL 80 MG ORAL TABLET 1 tab tue. and thur. PROPRANOLOL HCL 87509129235 No Longer Active Hope Benavidez MD PhD A ctive VITAMIN D3 4000 IU 1 tab 3 times daily VITAMIN D3 4000 IU No Longer Active Hope Benavidez MD PhD Active BACTRIM DS 800-160 MG ORAL TABLET 1 pill by mouth twice claudio y, for UTI SULFAMETHOXAZOLE-TRIMETHOPRIM 96543053274 No Longer Active Hope Benavidez MD PhD Active PROLIA 60 MG/ML SUBCUTANEOUS SOLUTION 1 shot every 6 months for osteoprosis DENOSUMAB 07461906549 Active Hope Benavidez MD PhD Active CALCIUM + D + K 750-500-40 MG-UNT-MCG ORAL TABLET 1 tab by m out twice daily CALCIUM-VITAMIN D-VITAMIN K 17790768622 Active Hope valdez MD PhD Active DAILY VALUE MULTIVITAMIN ORAL TABLET 1 tab by mouth twice daily 201 05/16/14 MULTIPLE VITAMIN 17710714261 Active Hope Benavidez MD PhD Acti ve FISH OIL 306 MG CAPS 1 tab by mouth three times daily OMEGA-3 FATTY ACIDS 95947692167 Active Hope Benavidez MD PhD Active LUTEIN 10 MG ORAL TABLET 1 tab daily LUTEIN 47040185 408 Active Hope Benavidez MD PhD Active TRIAMTERENE-HCTZ 37.5-25 MG ORAL TABLET 1 tab by mouth daily 10/22 TRIAMTERENE-HCTZ 06908738229 Active LETY Rossi Activ e CYCLOBENZAPRINE HCL 10 MG ORAL TABLET 1 tablet by mout h three times daily as needed for headaches CYCLOBENZAPRINE HCL 30642869966 No Longer Active Adam Yates MD Active OMEPRAZOLE 20 MG ORAL CAPSULE DELAYED RELEASE 1 tablet by [facility] daily for GERD OMEPRAZOLE 33463892851 No Longer Active Adam aYtes MD Active ZOFRAN 8 MG ORAL TABLET 1 tab by mouth every 12 hours prn 4 ONDANSETRON HCL 45314468433 No Longer Active Adam Yates MD Active PHENADOZ 25 MG RECTAL SUPPOSITORY 1 every 4 hrs. PRN 2 PROMETHAZINE HCL 95314721420 No Longer Active Adam Yates MD A ctive POTASSIUM CHLORIDE 20 MEQ ORAL PACKET by mouth twice a day prn 2 POTASSIUM CHLORIDE 17306531718 No Longer Active Adam Carpenter MD Active PROMETHAZINE HCL 25 MG ORAL TABLET 1 Q. 4 hr. PRN PROMETHAZINE HCL 77877174630 No Longer Active Adam Yates MD Active INNOPRAN XL 120 MG ORAL CAPSULE EXTENDED RELEASE 24 HO UR Take one by mouth daily PROPRANOLOL HCL SR BEADS 55737583574 No Longer Active Adam Yates MD Active FLAGYL 500 MG ORAL TABLET 1 pill by mouth three times daily, for diarrhea METRONIDAZOLE 19514705785 No Longer Active Hope landers MD PhD Active DYAZIDE 37.5-25 MG ORAL CAPSULE 1 qd TRIA MTERENE-HCTZ 72864591803 No Longer Active Hope Benavidez MD PhD Active PROZAC 20 MG ORAL CAPSULE 1 q d FLUOXETINE HCL 42838581719 No Longer Active Hope Benavidez MD PhD Active SIMVASTATIN 40 MG ORAL TABLET 1 qd SIMVAS TATIN 54662871706 No Longer Active Adam Yates MD Active MELOXICAM 15 MG ORAL TABLET 1 qd MELOXICAM 29966339047 No Longer Active Adam Yates MD Active IMODIUM A-D 2 MG ORAL TABLET 2 onset at diarrhea and prn. LOPERAMIDE HCL 47884099886 Active Hope Benavidez MD PhD Active EXCEDRIN EXTRA STRENGTH 250-250-65 MG ORAL TABLET 1-2 q6h NV N headache [id number] 94837024081 Active Hope Benavidez MD PhD Active FLAGYL 500 MG ORAL TABLET 1 qid METRONIDAZOL E 89653579929 No Longer Active Adam Yates MD Active LEVAQUIN 750 MG ORAL TABLET 1 qd LEVOFLOXAC IN 22408156236 No Longer Active Adam Yates MD Active ADULT ASPIRIN LOW STRENGTH 81 MG ORAL TABLET DISINTEGRATING 1 qd ASPIRIN 79567745622 Active Hope Benavidez MD PhD Active LEVAQUIN 750 MG ORAL TABLET 1 qd LEVAQUIN 750 MG ORAL TABLET 518501 LEVOFLOXACIN Inactive FLAGYL 500 MG ORAL TABLET 1 qid FLAGYL 500 MG ORAL TABLET 627961 METRONIDAZOLE Inactive MELOXICAM 15 MG ORAL TABLET 1 qd MELOXICAM 15 MG ORAL TABLET 103030 MELOXICAM Inactive SIMVASTATIN 40 MG ORAL TABLET 1 qd SIMVASTATIN 40 MG ORAL TABLET 624165 SIMVASTATIN Inactive PROZAC 20 MG ORAL CAPSULE 1 q d PROZAC 20 MG ORAL CAPSULE 933359 FLUOXETINE HCL Inactive DYAZIDE 37.5-25 MG ORAL CAPSULE 1 qd 5 DYAZIDE 37.5-25 MG ORAL CAPSULE 427766 TRIAMTERENE-HCTZ Inactive INNOPRAN XL 120 MG ORAL CAPSULE EXTENDED RELEASE 24 HO UR Take one by mouth daily INNOPRAN XL 120 MG ORAL CAPSULE EXTENDED RELEASE 24 HOUR PROPRANOLOL HCL SR BEADS Inactive PROMETHAZINE HCL 25 MG ORAL TABLET 1 Q. 4 hr. PRN 2013 PROMETHAZINE HCL 25 MG ORAL TABLET 799270 PROMETHAZINE HCL Inactive POTASSIUM CHLORIDE 20 MEQ ORAL PACKET by mouth twice a day prn 2 POTASSIUM CHLORIDE 20 MEQ ORAL PACKET 5132458 POTASSIUM CHLORIDE Inactive PHENADOZ 25 MG RECTAL SUPPOSITORY 1 every 4 hrs. PRN 2 PHENADOZ 25 MG RECTAL SUPPOSITORY 235620 PROMETHAZINE HCL Inactive ZOFRAN 8 MG ORAL TABLET 1 tab by mouth every 12 hours prn 4 ZOFRAN 8 MG ORAL TABLET 355223 ONDANSETRON HCL Inactive OMEPRAZOLE 20 MG ORAL CAPSULE DELAYED RELEASE 1 tablet by mo uth daily for GERD OMEPRAZOLE 20 MG ORAL CAPSULE DELAYED RELEASE 19 8051 OMEPRAZOLE Inactive CYCLOBENZAPRINE HCL 10 MG ORAL TABLET 1 tablet by mout h three times daily as needed for headaches CYCLOBENZAPRINE HCL 10 MG ORAL TABLET 330415 CYCLOBENZAPRINE HCL Inactive VITAMIN D3 4000 IU 1 tab 3 times daily VITAMIN D3 4000 IU Inactive PROPRANOLOL HCL 80 MG ORAL TABLET 1 tab tue. and thur. PROPRANOLOL HCL 80 MG ORAL TABLET 658297 PROPRANOLOL HCL Inacti ve CYANOCOBALAMIN 1000 MCG/ML INJECTION SOLUTION 1 injection ev ruben 2 weeks CYANOCOBALAMIN 1000 MCG/ML INJECTION SOLUTION 30 9594 CYANOCOBALAMIN Inactive MAGNESIUM GLUCONATE 250 MG ORAL TABLET 1 tab tid 23/10/23 MAGNESIUM GLUCONATE 250 MG ORAL TABLET 855119 MAGNESIUM GLUCONATE Inactive LOMOTIL 2.5-0.025 MG ORAL TABLET 1 tab by mouth prn 20 23/10/23 LOMOTIL 2.5-0.025 MG ORAL TABLET 4444836 DIPHENOXYLATE-ATROPINE Inac tive FLORANEX ORAL PACKET 1 pack three times daily, for bowel health FLORANEX ORAL PACKET 28535422737 LACTOBACILLUS Inactive IRON 325 (65 Fe) MG ORAL TABLET 1 every other day 2015 IRON 325 (65 Fe) MG ORAL TABLET 447907 FERROUS SULFATE Inactive FLAGYL 500 MG ORAL TABLET 1 pill by mouth three times daily, for diarrhea FLAGYL 500 MG ORAL TABLET 121332 METRONIDAZOLE I nactive BACTRIM DS 800-160 MG ORAL TABLET 1 pill by mouth twice claudio y, for UTI BACTRIM DS 800-160 MG ORAL TABLET 592778 SULFAMETHOXAZOLE-TRIMETHOPRIM Inactive Advance Directives Directive Description Start [...] ... - Chemistry sodium, serum 138 mmol/L 318-171 9355/12/15 potassium, serum 4.0 mmol/L 3.5-5.2 chloride, serum [...] - Chem istry sodium, serum 142 mmol/L 689-166 0534/04/19 carbon dioxide, venous blood 30.2 mmol/L 21.0-32 [...] 0.00-1.00 Encounters Code Encounter Date Provider Facility CPT-88202 Level 3 Est. Patient 08:15:24 POT FIREMAN Kylie Lund [facility] CPT-50964 Level 2 Est. Patient 14:27:16 POT FIREMAN Kylie Lund [facility] CPT-32402 Level 3 Est. Patient 17:54:48 CDT Kylie boyd [facility] CPT-73203 Level 3 Est. Patient 16:26:30 CDT Kina blackmon [facility] CPT-41644 Level 3 New Patient 16:22:01 POT FIREMAN Adam Yates MD [facility] CPT-25946 Level 4 Est. Patient 17:00:48 CDT Kylie boyd [facility] CPT-05552 Level 3 Est. Patient 13:15:54 CDT Kylie Lund [facility] CPT-90556 Level 3 Est. Patient 09:10:11 CDT Kylie Lund [facility] CPT-14894 Level 4 Est. Patient 12:08:30 POT FIREMAN Hope cohn MD [facility] CPT-82204 Level 4 Est. Patient 19:08:42 POT FIREMAN Hope cohn MD [facility] CPT-63922 Level 4 Est. Patient 20:04:51 CDT Hope cohn MD [facility] CPT-87375 Level 3 New Patient 01:46:11 POT FIREMAN Hope landers MD [facility] Procedures Code Procedure Name Date Entry Date Standard Desc ription CPT-19547 Venipuncture Draw Fee 10:59:04 CDT CPT-92405 CMP - LAB USE ONLY 10:59:04 CDT CPT-73764 CBC with Diff - LAB USE ONLY 10:59:03 CDT 2 CPT-J0897 Prolia 60 mg 15:46:54 POT FIREMAN CPT-46092 Abx/Therapy Injection 15:46:54 POT FIREMAN CPT-91846 Microalbumin - LAB USE ONLY 09:41:32 POT FIREMAN 20 23/01/15 CPT-12853 Free T4 - LAB USE ONLY 09:41:32 POT FIREMAN CPT-94704 TSH - LAB USE ONLY 09:41:32 POT FIREMAN CPT-90305 BMP - LAB USE ONLY 09:41:32 POT FIREMAN CPT-19949 Venipuncture Draw Fee 09:41:32 POT FIREMAN CPT-53913 First Vx - Ix admin for Medicare patients 11:19:30 CDT CPT-76350 Fluzone High-Dose Intramuscular Suspension 12/07 11:19:30 CDT CPT-J0897 Prolia 60 mg 14:55:42 CDT CPT-49878 Abx/Therapy Injection 14:55:42 CDT CPT-60341 Bone Density - XRAY USE ONLY 10:27:12 CDT 2 CPT-G0439 Subsequent Annual Wellness Exam 17:54:53 CDT CPT-95671 Foot, left, comp min 3V - XRAY USE ONLY 12:22:49 CDT CPT-G0009 Administration of Pneumococcal Vaccine 3 12:18:00 CDT CPT-16217 Pneumovax 23 Injection Injectable 25 MCG /0.5ML 12:18:00 CDT CPT-J0897 Prolia 60 mg 14:14:16 POT FIREMAN CPT-47585 Abx/Therapy Injection 14:14:15 POT FIREMAN CPT-17709 Lipid - LAB USE ONLY 10:01:52 POT FIREMAN 2 CPT-70868 Calcium - LAB USE ONLY 10:01:51 POT FIREMAN CPT-01382 Venipuncture Draw Fee 10:01:51 POT FIREMAN CPT-LR Lesion Removal 16:22:01 POT FIREMAN CPT-77272 TSH - LAB USE ONLY 14:26:02 CDT CPT-74489 CMP - LAB USE ONLY 14:26:01 CDT CPT-22183 CBC with Diff - LAB USE ONLY 14:26:01 CDT 2 CPT-01949 Venipuncture Draw Fee 14:26:01 CDT CPT-13449 First Vx - Ix admin for Medicare patients 13:27:08 CDT CPT-42076 Fluzone High-Dose Intramuscular Suspension 11/26 13:27:08 CDT CPT-G0438 Initial Annual Wellness Exam 14:19:57 CD T CPT-G0009 Administration of Pneumococcal Vaccine 9 11:36:25 CDT CPT-97152 Prevnar 13 Intramuscular Suspension 1 1:36:25 CDT CPT-82194 Prevnar 13 Intramuscular Suspension 1 0:40:58 CDT CPT-J0897 Prolia 60 mg 10:37:16 CDT CPT-43188 Abx/Therapy Injection 10:37:16 CDT CPT-J0897 Prolia 60 mg 16:09:34 POT FIREMAN CPT-J0897 Prolia 60 mg 11:10:35 POT FIREMAN CPT-37493 Abx/Therapy Injection 11:10:35 POT FIREMAN CPT-000 Give Appropriate Flu Vaccine 17:01:15 POT FIREMAN 2 CPT-91669 Fluzone High Dose (65+) 15:03:08 POT FIREMAN 02/15 CPT-68701 Immunization Single Admin 15:03:08 POT FIREMAN 2014 CPT-OV Office Visit 15:58:06 CDT CPT-J0897 Prolia 60 mg 08:45:38 CDT CPT-44592 Abx/Therapy Injection 08:45:38 CDT CPT-J3420 Vitamin B12 1000mcg (Cyanocobalamin) 09:26:20 POT FIREMAN CPT-23368 Abx/Therapy Injection 09:26:20 POT FIREMAN CPT-J3420 Vitamin B12 1000mcg (Cyanocobalamin) 09:44:40 POT FIREMAN CPT-98863 Abx/Therapy Injection 09:44:40 POT FIREMAN CPT-J3420 Vitamin B12 1000mcg (Cyanocobalamin) 09:15:54 POT FIREMAN CPT-99344 Abx/Therapy Injection 09:15:54 POT FIREMAN CPT-J3420 Vitamin B12 1000mcg (Cyanocobalamin) 09:46:44 POT FIREMAN CPT-39519 Abx/Therapy Injection 09:46:44 POT FIREMAN CPT-J3420 Vitamin B12 1000mcg (Cyanocobalamin) 09:47:34 POT FIREMAN CPT-71163 Abx/Therapy Injection 09:47:34 POT FIREMAN CPT-J3420 Vitamin B12 1000mcg (Cyanocobalamin) 14:35:50 POT FIREMAN CPT-J3420 Vitamin B12 1000mcg (Cyanocobalamin) 09:25:05 POT FIREMAN CPT-03348 Abx/Therapy Injection 09:25:05 POT FIREMAN CPT-G0008 Administration of Influenza Virus Vaccine 13:36:47 CDT CPT-50634 Fluzone High-Dose Intramuscular Suspension 11/15 13:36:47 CDT CPT-J0897 Prolia 60 mg 08:50:41 CDT CPT-90515 Abx/Therapy Injection 08:50:41 CDT CPT-42488 Bone Density 12:06:12 CDT CPT-94711 Bone Density 08:54:40 CDT CPT-OV Office Visit 15:37:02 CDT CPT-88169 Postop F/U Visit 15:47:49 CDT CPT-13158 Postop F/U Visit 15:21:02 CDT CPT-TCM Transitional Care Mgmt-High 07:52:27 CDT 20 20/06/01 CPT-12675 Venipuncture Draw Fee 13:51:18 CDT CPT-95296 Venipuncture Draw Fee 10:14:55 POT FIREMAN CPT-36612 Venipuncture Draw Fee 13:39:45 POT FIREMAN CPT-OV Office Visit 15:11:22 POT FIREMAN CPT-67551 Venipuncture Draw Fee 09:20:49 POT FIREMAN CPT-03071 Venipuncture Draw Fee 16:52:15 POT FIREMAN CPT-21756 Venipuncture Draw Fee 10:37:24 POT FIREMAN CPT-88702 Venipuncture Draw Fee 08:21:21 POT FIREMAN CPT-75594 Venipuncture Draw Fee 08:30:20 POT FIREMAN CPT-50047 Venipuncture Draw Fee 14:53:21 POT FIREMAN CPT-47694 Venipuncture Draw Fee 09:40:56 POT FIREMAN CPT-02429 Venipuncture Draw Fee 10:30:47 POT FIREMAN CPT-75946 Venipuncture Draw Fee 10:46:17 POT FIREMAN CPT-19207 Venipuncture Draw Fee 11:12:45 POT FIREMAN CPT-82904 Venipuncture Draw Fee 09:53:33 POT FIREMAN CPT-08913 Venipuncture Draw Fee 11:53:51 POT FIREMAN CPT-22778 Venipuncture Draw Fee 10:33:50 POT FIREMAN CPT-26319 Venipuncture Draw Fee 10:05:01 POT FIREMAN CPT-69889 Venipuncture Draw Fee 14:32:52 POT FIREMAN CPT-92232 Venipuncture Draw Fee 09:46:13 POT FIREMAN CPT-68028 Venipuncture Draw Fee 11:34:27 POT FIREMAN CPT-39011 Venipuncture Draw Fee 13:17:16 POT FIREMAN CPT-21383 Venipuncture Draw Fee 12:05:39 CDT CPT-57404 Venipuncture Draw Fee 12:49:12 CDT CPT-60570 Venipuncture Draw Fee 12:37:18 CDT CPT-83294 Venipuncture Draw Fee 10:57:11 CDT CPT-16467 Venipuncture Draw Fee 13:47:40 CDT CPT-53651 Venipuncture Draw Fee 10:02:17 CDT CPT-96451 TB Tubersol 17:32:32 CDT CPT-OV Office Visit 16:21:53 CDT CPT-OV Office Visit 15:49:22 CDT CPT-OV Office Visit 17:16:31 CDT CPT-OV Office Visit 10:43:31 CDT
--- OUTSIDE RECORDS SUMMARY | 2019-02-09 12:34 | XMS REPORT | Clinical Summary ---
Author Author Renaldo, Florecita Munoz Organization [facility] Secure[employer]24 Address Unknown Phone Unavailable Allergies, Adverse Reactions, [...] Hyperpotassemia GERD 530.81 Resolved Kylie Yokum RN CLINICAL RESOURCE Esophageal reflux Health maintenance exam V70.0 Resolved Adolfo Yates MD Routine general medical examination at a health care facility Anemia 285.9 Resolved Kylie Yanet RN CLINICAL RESOURCE Anemia, unspecified Personal history of malignant neoplasm of large intestine V10.05 Active Adam Yates MD Personal history of malignant neoplasm of large intestine Hypomagnesemia 275.2 Resolved Kylie Yanet RN CLINICAL RESOURCE Disorders of magnesium metabolism Weakness 780.79 Resolved [...] cyst, scalp 706.2 Resolved Kylie Yokum RN CLINICAL RESOURCE Sebaceous cyst Cervical lymphadenopathy, anterior, left 785.6 Resolv ed Kylie Yokum RN CLINICAL RESOURCE Enlargement of lymph nodes Need for prophylactic vaccination and inoculation against in fluenza V04.81 Resolved Adam Yates MD Need for prophylactic vaccination and inoculation against influenza Preventive health care V70.0 Active Kylie Yokum RN CLINICAL RESOURCE Routine general medical examination at a health care facility Thyroid nodule, left 241.0 Active Kylie Yokum A PRN Nontoxic uninodular goiter Screening mammogram V76.12 Active Kylie Yokum AP RN Other screening mammogram Mandy 706.2 Resolved Kylie Yokum RN CLINICAL RESOURCE Sebaceous cyst Colon cancer, ascending 153.6 Resolved Kylie Yok um RN CLINICAL RESOURCE Malignant neoplasm of ascending colon Foot pain, left 729.5 Active 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 Pain in limb Splinter 919.6 Active Kylie Yokum RN CLINICAL RESOURCE Superficial foreign body (splinter) of other, multiple, and unspecified sites, without major open wound and without mention of infection Rash 782.1 Active Kylie Yokum RN CLINICAL RESOURCE R aurora and other nonspecific skin eruption ABDOMINAL PAIN, RIGHT LOWER QUADRANT ICD-789.03 Inactive Kina Joshua RN CLINICAL RESOURCE ADENOCARCINOMA, COLON, 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 Dick Yates MD ABDOMINAL PAIN, GENERALIZED ICD-789.07 Inactive Hope Benavidez MD PhD FEVER UNSPECIFIED ICD-780.60 Inactive Hope cohn MD PhD UNSPECIFIED VENOUS INSUFFICIENCY ICD-459.81 [place] ctive Adam Yates MD ADENOCARCINOMA, 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 Inac tive Hope Benavidez MD PhD Hyperkalemia ICD-276.7 Inactive Hope Benavidez MD PhD GERD ICD-530.81 Inactive Kylie Yanet RN CLINICAL RESOURCE 2015 Health maintenance exam ICD-V70.0 aBm Yates MD Anemia ICD-285.9 Inactive Kylie Holt RN CLINICAL RESOURCE 07/24 Hypomagnesemia ICD-275.2 Inactive Kylie Yokum RN CLINICAL RESOURCE Weakness ICD-780.79 Inactive Hope Benavidez MD P [...] cyst, scalp ICD-706.2 Inactive Tracy Holt RN CLINICAL RESOURCE Cervical lymphadenopathy, anterior, left ICD-785.6 Inactive Kylie Holt RN CLINICAL RESOURCE Need for prophylactic vaccination and inoculation against in fluenza ICD-V04.81 Inactive Adam Yates MD Mandy ICD-706.2 Inactive Kylie Holt AMY 07/20 Colon cancer, ascending ICD-153.6 Inactive Gabbi Escalonagabbioliver AMY Medication List Medication Instructions Start Date Stop Date Generic Name NDC Status Provider Patient Instruction VOLTAREN 1 % TRANSDERMAL GEL apply q 6-8 hour to left arm as needed for pain DICLOFENAC SODIUM 13422959203 Active Kylie Holt AMY Active COQ10 100 MG ORAL CAPSULE 1 daily COENZYME Q10 126261 61219 Active LETY Nation Active VITAMIN D3 2000 UNIT ORAL CAPSULE Melaleuca-One daily CHOLECALCIFEROL 56449601115 Active Kylie Holt APRN Active PROBIOTIC DAILY ORAL CAPSULE Take one daily PROBIO TIC PRODUCT 97017922472 Active Kylie Holt AMY Active IRON 325 (65 Fe) MG ORAL TABLET 1 every other day FERROUS SULFATE 29263335657 No Longer Active Kylie Holt AMY Active FLORANEX ORAL PACKET 1 pack three times daily, for bowel health LACTOBACILLUS 59983459927 No Longer Active Kylie Holt AMY Active LOMOTIL 2.5-0.025 MG ORAL TABLET 1 tab by mouth prn 23/10/23 DIPHENOXYLATE-ATROPINE 33618800615 No Longer Active Kylie Holt RN CLINICAL RESOURCE Active MAGNESIUM GLUCONATE 250 MG ORAL TABLET 1 tab tid 23/10/23 MAGNESIUM GLUCONATE 90691967523 No Longer Active Kylie Holt RN CLINICAL RESOURCE Active CYANOCOBALAMIN 1000 MCG/ML INJECTION SOLUTION 1 injection ev ruben 2 weeks CYANOCOBALAMIN 28412346922 No Longer Active Kylie boyd RN CLINICAL RESOURCE Active ATENOLOL 25 MG ORAL TABLET 1/2 pill by mouth daily, fo r headaches, blood pressure ATENOLOL 68910375909 Active Kylie Holt RN CLINICAL RESOURCE Active PROPRANOLOL HCL 80 MG ORAL TABLET 1 tab tue. and thur. PROPRANOLOL HCL 15209640428 No Longer Active Hope Benavidez MD PhD A ctive VITAMIN D3 4000 IU 1 tab 3 times daily VITAMIN D3 4000 IU No Longer Active Hope Benavidez MD PhD Active BACTRIM DS 800-160 MG ORAL TABLET 1 pill by mouth twice claudio y, for UTI SULFAMETHOXAZOLE-TRIMETHOPRIM 96099836237 No Longer Active Hope Benavidez MD PhD Active PROLIA 60 MG/ML SUBCUTANEOUS SOLUTION 1 shot every 6 months for osteoprosis DENOSUMAB 77906285753 Active Hope Benavidez MD PhD Active CALCIUM + D + K 750-500-40 MG-UNT-MCG ORAL TABLET 1 tab by m [facility] twice daily CALCIUM-VITAMIN D-VITAMIN K 15301816408 Active Hope valdez MD PhD Active DAILY VALUE MULTIVITAMIN ORAL TABLET 1 tab by mouth twice daily 201 05/16/14 MULTIPLE VITAMIN 50739118839 Active Hope Benavidez MD PhD Acti ve FISH OIL 306 MG CAPS 1 tab by mouth three times daily OMEGA-3 FATTY ACIDS 42611756635 Active Hope Benavidez MD PhD Active LUTEIN 10 MG ORAL TABLET 1 tab daily LUTEIN 36809649 408 Active Hope Benavidez MD PhD Active TRIAMTERENE-HCTZ 37.5-25 MG ORAL TABLET 1 tab by mouth daily 10/22 TRIAMTERENE-HCTZ 73590300874 Active Kylie Holt RN CLINICAL RESOURCE Active CYCLOBENZAPRINE HCL 10 MG ORAL TABLET 1 tablet by mout h three times daily as needed for headaches CYCLOBENZAPRINE HCL 64679978258 No Longer Active Adam Yates MD Active OMEPRAZOLE 20 MG ORAL CAPSULE DELAYED RELEASE 1 tablet by mo [facility] daily for GERD OMEPRAZOLE 93449533564 No Longer Active Adam Yates MD Active ZOFRAN 8 MG ORAL TABLET 1 tab by mouth every 12 hours prn 4 ONDANSETRON HCL 24165212768 No Longer Active Adam Yates MD Active PHENADOZ 25 MG RECTAL SUPPOSITORY 1 every 4 hrs. PRN 2 PROMETHAZINE HCL 48437704000 No Longer Active Adam Yates MD A ctive POTASSIUM CHLORIDE 20 MEQ ORAL PACKET by mouth twice a day prn 2 POTASSIUM CHLORIDE 34520367780 No Longer Active Adam Carpenter MD Active PROMETHAZINE HCL 25 MG ORAL TABLET 1 Q. 4 hr. PRN PROMETHAZINE HCL 47406981237 No Longer Active Adam Yates MD Active INNOPRAN XL 120 MG ORAL CAPSULE EXTENDED RELEASE 24 HO UR Take one by mouth daily PROPRANOLOL HCL SR BEADS 79637591775 No Longer Active Adam Yates MD Active FLAGYL 500 MG ORAL TABLET 1 pill by mouth three times daily, for diarrhea METRONIDAZOLE 63830927585 No Longer Active Hope landers MD PhD Active DYAZIDE 37.5-25 MG ORAL CAPSULE 1 qd TRIA MTERENE-HCTZ 01192345592 No Longer Active Hope Benavidez MD PhD Active PROZAC 20 MG ORAL CAPSULE 1 q d FLUOXETINE HCL 46957285885 No Longer Active Hope Benavidez MD PhD Active SIMVASTATIN 40 MG ORAL TABLET 1 qd SIMVAS TATIN 08953526574 No Longer Active Adam Yates MD Active MELOXICAM 15 MG ORAL TABLET 1 qd MELOXICAM 05022345887 No Longer Active Adam Yates MD Active IMODIUM A-D 2 MG ORAL TABLET 2 onset at diarrhea and prn. LOPERAMIDE HCL 00820117518 Active Hope Benavidez MD PhD Active EXCEDRIN EXTRA STRENGTH 250-250-65 MG ORAL TABLET 1-2 q6h AZ N headache [id number] 86174545095 Active Hope Benavidez MD PhD Active FLAGYL 500 MG ORAL TABLET 1 qid METRONIDAZOL E 98857944676 No Longer Active Adam Yates MD Active LEVAQUIN 750 MG ORAL TABLET 1 qd LEVOFLOXAC IN 17406736912 No Longer Active Adam Yates MD Active ADULT ASPIRIN LOW STRENGTH 81 MG ORAL TABLET DISINTEGRATING 1 qd ASPIRIN 60344713555 Active Hope Benavidez MD PhD Active LEVAQUIN 750 MG ORAL TABLET 1 qd LEVAQUIN 750 MG ORAL TABLET 898648 LEVOFLOXACIN Inactive FLAGYL 500 MG ORAL TABLET 1 qid FLAGYL 500 MG ORAL TABLET 120797 METRONIDAZOLE Inactive MELOXICAM 15 MG ORAL TABLET 1 qd MELOXICAM 15 MG ORAL TABLET 051310 MELOXICAM Inactive SIMVASTATIN 40 MG ORAL TABLET 1 qd SIMVASTATIN 40 MG ORAL TABLET 942838 SIMVASTATIN Inactive PROZAC 20 MG ORAL CAPSULE 1 q d PROZAC 20 MG ORAL CAPSULE 190107 FLUOXETINE HCL Inactive DYAZIDE 37.5-25 MG ORAL CAPSULE 1 qd 5 DYAZIDE 37.5-25 MG ORAL CAPSULE 324828 TRIAMTERENE-HCTZ Inactive INNOPRAN XL 120 MG ORAL CAPSULE EXTENDED RELEASE 24 HO UR Take one by mouth daily INNOPRAN XL 120 MG ORAL CAPSULE EXTENDED RELEASE 24 HOUR PROPRANOLOL HCL SR BEADS Inactive PROMETHAZINE HCL 25 MG ORAL TABLET 1 Q. 4 hr. PRN 2013 PROMETHAZINE HCL 25 MG ORAL TABLET 591634 PROMETHAZINE HCL Inactive POTASSIUM CHLORIDE 20 MEQ ORAL PACKET by mouth twice a day prn 2 POTASSIUM CHLORIDE 20 MEQ ORAL PACKET 5369816 POTASSIUM CHLORIDE Inactive PHENADOZ 25 MG RECTAL SUPPOSITORY 1 every 4 hrs. PRN 2 PHENADOZ 25 MG RECTAL SUPPOSITORY 214685 PROMETHAZINE HCL Inactive ZOFRAN 8 MG ORAL TABLET 1 tab by mouth every 12 hours prn 4 ZOFRAN 8 MG ORAL TABLET 726793 ONDANSETRON HCL Inactive OMEPRAZOLE 20 MG ORAL CAPSULE DELAYED RELEASE 1 tablet by mo uth daily for GERD OMEPRAZOLE 20 MG ORAL CAPSULE DELAYED RELEASE 19 8051 OMEPRAZOLE Inactive CYCLOBENZAPRINE HCL 10 MG ORAL TABLET 1 tablet by mout h three times daily as needed for headaches CYCLOBENZAPRINE HCL 10 MG ORAL TABLET 201065 CYCLOBENZAPRINE HCL Inactive VITAMIN D3 4000 IU 1 tab 3 times daily VITAMIN D3 4000 IU Inactive PROPRANOLOL HCL 80 MG ORAL TABLET 1 tab tue. and thur. PROPRANOLOL HCL 80 MG ORAL TABLET 412582 PROPRANOLOL HCL Inacti ve CYANOCOBALAMIN 1000 MCG/ML INJECTION SOLUTION 1 injection ev ruben 2 weeks CYANOCOBALAMIN 1000 MCG/ML INJECTION SOLUTION 30 9594 CYANOCOBALAMIN Inactive MAGNESIUM GLUCONATE 250 MG ORAL TABLET 1 tab tid 20 23/10/23 MAGNESIUM GLUCONATE 250 MG ORAL TABLET 224956 MAGNESIUM GLUCONATE Inactive LOMOTIL 2.5-0.025 MG ORAL TABLET 1 tab by mouth prn 20 23/10/23 LOMOTIL 2.5-0.025 MG ORAL TABLET 1381772 DIPHENOXYLATE-ATROPINE Inac tive FLORANEX ORAL PACKET 1 pack three times daily, for bowel health FLORANEX ORAL PACKET LACTOBACILLUS Inactive IRON 325 (65 Fe) MG ORAL TABLET 1 every other day 2015 IRON 325 (65 Fe) MG ORAL TABLET 743902 FERROUS SULFATE Inactive FLAGYL 500 MG ORAL TABLET 1 pill by mouth three times daily, for diarrhea FLAGYL 500 MG ORAL TABLET 067650 METRONIDAZOLE I nactive BACTRIM DS 800-160 MG ORAL TABLET 1 pill by mouth twice claudio y, for UTI BACTRIM DS 800-160 MG ORAL TABLET 438260 SULFAMETHOXAZOLE-TRIMETHOPRIM Inactive Advance Directives Directive Description Start [...] 11 .0-15.0 platelet count 157 THOUSAND/UL 10*3/mm3 808-277 0856/04/20 mean platelet volume 8.9 fL 7.5-12.5 Lab Report: CEA - Serology carcinoembryonic antigen 0.9 ng/mL Lab Report: Lipid Panel, Calcium - Chemi stry cholesterol, serum 200 mg/dL [phone]/11/22 triglyceride, serum, fasting 129 mg/dL 30-200 HDL cholesterol, serum 56 mg/dL 32-96 LDL cholesterol, serum 118 mg/dL 0-130 calcium, serum 9.0 mg/dL 8.5-10.1 Lab Report: MicroAlb Random w/creat/6517 - Urinalysis microalbumin/total urine volume 8 mg/L Units converted. See lab report for original value. microalbumin/creatinine ratio, urine 15 MCG/MG CREAT mg/L <30 Encounters Code Encounter Date Provider Facility CPT-94962 Level 3 Est. Patient 17:54:48 CDT Kylie boyd [facility] CPT-32967 Level 3 Est. Patient 16:26:30 CDT Kina blackmon [facility] [place] CPT-22240 Level 3 New Patient 16:22:01 COKE DRAWER Adam Yates MD [facility] CPT-83971 Level 4 Est. Patient 17:00:48 CDT Kylie boyd [facility] CPT-49773 Level 3 Est. Patient 13:15:54 CDT Kylie Lund [facility] CPT-57267 Level 3 Est. Patient 09:10:11 CDT Kylie Lund [facility] CPT-61444 Level 4 Est. Patient 12:08:30 COKE DRAWER Hope cohn MD [facility] CPT-06865 Level 4 Est. Patient 19:08:42 COKE DRAWER Hope cohn MD [facility] CPT-80953 Level 4 Est. Patient 20:04:51 CDT Hope cohn MD [facility] CPT-47505 Level 3 New Patient 01:46:11 COKE DRAWER Hope ladners MD [facility] Procedures Code Procedure Name Date Entry Date Standard Desc ription CPT-52199 First Vx - Ix admin for Medicare patients 11:19:30 CDT CPT-61408 Fluzone High-Dose Intramuscular Suspension 12/07 11:19:30 CDT CPT-J0897 Prolia 60 mg 14:55:42 CDT CPT-79171 Abx/Therapy Injection 14:55:42 CDT CPT-82802 Bone Density - XRAY USE ONLY 10:27:12 CDT 2 CPT-G0439 [facility] Annual Wellness Exam 17:54:53 CDT CPT-60939 Foot, left, comp min 3V - XRAY USE ONLY 12:22:49 CDT CPT-G0009 Administration of Pneumococcal Vaccine 3 12:18:00 CDT CPT-99551 Pneumovax 23 Injection Injectable 25 MCG /0.5ML 12:18:00 CDT CPT-J0897 Prolia 60 mg 14:14:16 COKE DRAWER CPT-91791 Abx/Therapy Injection 14:14:15 COKE DRAWER CPT-18037 Lipid - LAB USE ONLY 10:01:52 COKE DRAWER 2 CPT-30555 Calcium - LAB USE ONLY 10:01:51 COKE DRAWER CPT-21545 Venipuncture Draw Fee 10:01:51 COKE DRAWER CPT-LR Lesion Removal 16:22:01 COKE DRAWER CPT-86904 TSH - LAB USE ONLY 14:26:02 CDT CPT-30911 CMP - LAB USE ONLY 14:26:01 CDT CPT-08818 CBC with Diff - LAB USE ONLY 14:26:01 CDT 2 CPT-71799 Venipuncture Draw Fee 14:26:01 CDT CPT-18899 First Vx - Ix admin for Medicare patients 13:27:08 CDT CPT-69928 Fluzone High-Dose Intramuscular Suspension 11/26 13:27:08 CDT CPT-G0438 Initial Annual Wellness Exam 14:19:57 CD T CPT-G0009 Administration of Pneumococcal Vaccine 9 11:36:25 CDT CPT-78341 Prevnar 13 Intramuscular Suspension 1 1:36:25 CDT CPT-66492 Prevnar 13 Intramuscular Suspension 1 0:40:58 CDT CPT-J0897 Prolia 60 mg 10:37:16 CDT CPT-06061 Abx/Therapy Injection 10:37:16 CDT CPT-J0897 Prolia 60 mg 16:09:34 COKE DRAWER CPT-J0897 Prolia 60 mg 11:10:35 COKE DRAWER CPT-72569 Abx/Therapy Injection 11:10:35 COKE DRAWER CPT-000 Give Appropriate Flu Vaccine 17:01:15 COKE DRAWER 2 CPT-41112 Fluzone High Dose (65+) 15:03:08 COKE DRAWER 02/15 CPT-36536 Immunization Single Admin 15:03:08 COKE DRAWER 2014 CPT-OV Office Visit 15:58:06 CDT CPT-J0897 Prolia 60 mg 08:45:38 CDT CPT-09830 Abx/Therapy Injection 08:45:38 CDT CPT-J3420 Vitamin B12 1000mcg (Cyanocobalamin) 09:26:20 COKE DRAWER CPT-94147 Abx/Therapy Injection 09:26:20 COKE DRAWER CPT-J3420 Vitamin B12 1000mcg (Cyanocobalamin) 09:44:40 COKE DRAWER CPT-76900 Abx/Therapy Injection 09:44:40 COKE DRAWER CPT-J3420 Vitamin B12 1000mcg (Cyanocobalamin) 09:15:54 COKE DRAWER CPT-77462 Abx/Therapy Injection 09:15:54 COKE DRAWER CPT-J3420 Vitamin B12 1000mcg (Cyanocobalamin) 09:46:44 COKE DRAWER CPT-23392 Abx/Therapy Injection 09:46:44 COKE DRAWER CPT-J3420 Vitamin B12 1000mcg (Cyanocobalamin) 09:47:34 COKE DRAWER CPT-51709 Abx/Therapy Injection 09:47:34 COKE DRAWER CPT-J3420 Vitamin B12 1000mcg (Cyanocobalamin) 14:35:50 COKE DRAWER CPT-J3420 Vitamin B12 1000mcg (Cyanocobalamin) 09:25:05 COKE DRAWER CPT-89146 Abx/Therapy Injection 09:25:05 COKE DRAWER CPT-G0008 Administration of Influenza Virus Vaccine 13:36:47 CDT CPT-39787 Fluzone High-Dose Intramuscular Suspension 11/15 13:36:47 CDT CPT-J0897 Prolia 60 mg 08:50:41 CDT CPT-73940 Abx/Therapy Injection 08:50:41 CDT CPT-92114 Bone Density 12:06:12 CDT CPT-12292 Bone Density 08:54:40 CDT CPT-OV Office Visit 15:37:02 CDT CPT-61465 Postop F/U Visit 15:47:49 CDT CPT-90200 Postop F/U Visit 15:21:02 CDT CPT-[facility] Transitional Care Mgmt-High 07:52:27 CDT 20 20/06/01 CPT-29711 Venipuncture Draw Fee 13:51:18 CDT CPT-03819 Venipuncture Draw Fee 10:14:55 COKE DRAWER CPT-98697 Venipuncture Draw Fee 13:39:45 COKE DRAWER CPT-OV Office Visit 15:11:22 COKE DRAWER CPT-96081 Venipuncture Draw Fee 09:20:49 COKE DRAWER CPT-07830 Venipuncture Draw Fee 16:52:15 COKE DRAWER CPT-00915 Venipuncture Draw Fee 10:37:24 COKE DRAWER CPT-44727 Venipuncture Draw Fee 08:21:21 COKE DRAWER CPT-51377 Venipuncture Draw Fee 08:30:20 COKE DRAWER CPT-84265 Venipuncture Draw Fee 14:53:21 COKE DRAWER CPT-64163 Venipuncture Draw Fee 09:40:56 COKE DRAWER CPT-08950 Venipuncture Draw Fee 10:30:47 COKE DRAWER CPT-78597 Venipuncture Draw Fee 10:46:17 COKE DRAWER CPT-53711 Venipuncture Draw Fee 11:12:45 COKE DRAWER CPT-62229 Venipuncture Draw Fee 09:53:33 COKE DRAWER CPT-87148 Venipuncture Draw Fee 11:53:51 COKE DRAWER CPT-65519 Venipuncture Draw Fee 10:33:50 COKE DRAWER CPT-29359 Venipuncture Draw Fee 10:05:01 COKE DRAWER CPT-54020 Venipuncture Draw Fee 14:32:52 COKE DRAWER CPT-18634 Venipuncture Draw Fee 09:46:13 COKE DRAWER CPT-35751 Venipuncture Draw Fee 11:34:27 COKE DRAWER CPT-20559 Venipuncture Draw Fee 13:17:16 COKE DRAWER CPT-19545 Venipuncture Draw Fee 12:05:39 CDT CPT-59788 Venipuncture Draw Fee 12:49:12 CDT CPT-14333 Venipuncture Draw Fee 12:37:18 CDT CPT-98829 Venipuncture Draw Fee 10:57:11 CDT CPT-67749 Venipuncture Draw Fee 13:47:40 CDT CPT-70941 Venipuncture Draw Fee 10:02:17 CDT CPT-51961 TB Tubersol 17:32:32 CDT CPT-OV Office Visit 16:21:53 CDT CPT-OV Office Visit 15:49:22 CDT CPT-OV Office Visit 17:16:31 CDT CPT-OV Office Visit 10:43:31 CDT
--- OUTSIDE RECORDS SUMMARY | 2019-02-09 12:35 | XMS REPORT | Clinical Summary ---
Author Author Renaldo, Florecita Munoz Organization [facility] [employer] Address Unknown Phone Unavailable Allergies, Adverse Reactions, [...] PhD Hyperpotassemia GERD 530.81 Resolved Kylie Yokum INSULATION PROFESSIONAL Esophageal reflux Health maintenance exam V70.0 Resolved Adolfo Yates MD Routine general medical examination at a health care facility Anemia 285.9 Resolved Kylie Holt INSULATION PROFESSIONAL Anemia, unspecified Personal history of malignant neoplasm [...] Sebaceous cyst, scalp 706.2 Resolved Kylie Holt INSULATION PROFESSIONAL Sebaceous cyst Cervical lymphadenopathy, anterior, left 785.6 Resolv ed Kylie Holt INSULATION PROFESSIONAL Enlargement of lymph nodes Need for prophylactic vaccination and inoculation against in fluenza V04.81 Active Citlaly Watkins RMA Need for prophylactic vaccination and inoculation against influenza Preventive health care V70.0 Active Kylie Holt INSULATION PROFESSIONAL Routine general medical examination at a health care facility Thyroid nodule, left 241.0 Active Kylie Holt A PRN Nontoxic uninodular goiter Screening mammogram V76.12 Active Kylie Holt AP RN Other screening mammogram ABDOMINAL PAIN, RIGHT LOWER QUADRANT ICD-789.03 Inactive Kina Joshua INSULATION PROFESSIONAL ADENOCARCINOMA, COLON, 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 Dick Yates MD ABDOMINAL PAIN, GENERALIZED ICD-789.07 Inactive Hope Benavidez MD PhD FEVER UNSPECIFIED ICD-780.60 Inactive Hope cohn MD PhD UNSPECIFIED VENOUS INSUFFICIENCY ICD-459.81 [place] ctive Adam Yates MD ADENOCARCINOMA, 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 Inac tive Hope Benavidez MD PhD Hyperkalemia ICD-276.7 Inactive Hope Benavidez MD PhD GERD ICD-530.81 Inactive Kylie Holt INSULATION PROFESSIONAL 2015 Health maintenance exam ICD-V70.0 Bam Yates MD Anemia ICD-285.9 Inactive Kylie Holt INSULATION PROFESSIONAL 07/24 Weakness ICD-780.79 Inactive Hope Benavidez MD P hD Aftercare following surgery of the teeth,oral cavity a nd digestive system, NEC ICD-V58.75 Inactive Adam Yates MD Colon cancer ICD-153.9 Inactive Adam luna MD Asymptomatic postmenopausal status (age-related) (natural) I CD-V49.81 Inactive Hope Benavidez MD PhD Dysuria ICD-788.1 Inactive Hope Benavidez MD PhD 201 05/19/01 Sebaceous cyst, scalp ICD-706.2 Inactive Tracy Holt INSULATION PROFESSIONAL Cervical lymphadenopathy, anterior, left ICD-785.6 Inactive Kylie Lundum INSULATION PROFESSIONAL Medication List Medication Instructions Start Date Stop Date Generic Name NDC Status Provider Patient Instruction VITAMIN D3 2000 UNIT ORAL CAPS Melaleuca-One daily CHOLECALCIFEROL [id number] Active Kylie Lundum INSULATION PROFESSIONAL Active PROBIOTIC DAILY ORAL CAPS Take one daily PROBIOTIC PRODUCT 53244414679 Active Kylie Lundum INSULATION PROFESSIONAL Active IRON 325 (65 FE) MG TABS 1 every other day FERR OUS SULFATE 12626594469 No Longer Active Kylie Lundum INSULATION PROFESSIONAL Active FLORANEX PACK 1 pack three times daily, for bowel health LACTOBACILLUS 10689223949 No Longer Active Kylie Lundum INSULATION PROFESSIONAL Active LOMOTIL 2.5-0.025 MG TABS 1 tab by mouth prn 4 DIPHENOXYLATE-ATROPINE 41194933016 No Longer Active Kylie Yokum INSULATION PROFESSIONAL Active MAGNESIUM GLUCONATE 250 MG TABS 1 tab tid 4 MAGNESIUM GLUCONATE 55187131050 No Longer Active Kylie Yokum INSULATION PROFESSIONAL Active CYANOCOBALAMIN 1000 MCG/ML INJ SOLN 1 injection every 2 weeks 20 20/01/03 CYANOCOBALAMIN 94381175384 No Longer Active Kylie Yokum INSULATION PROFESSIONAL Active ATENOLOL 25 MG ORAL TABS 1/2 pill by mouth daily, for headac hes, blood pressure ATENOLOL 84913522769 Active Kylie Yokum INSULATION PROFESSIONAL Active PROPRANOLOL HCL 80 MG TABS 1 tab tue. and thur. 04/10 PROPRANOLOL HCL 28813993472 No Longer Active Hope Benavidez MD PhD A ctive VITAMIN D3 4000 IU 1 tab 3 times daily VITAMIN D3 4000 IU No Longer Active Hope Benavidez MD PhD Active BACTRIM DS 800-160 MG TABS 1 pill by mouth twice daily, for UTI SULFAMETHOXAZOLE-TRIMETHOPRIM 02970281946 No Longer Active A attila Benavidez MD PhD Active PROLIA 60 MG/ML SOLN 1 shot every 6 months for osteoprosis DENOSUMAB 88844511321 Active Hope Benavidez MD PhD Active CALCIUM + D + K 750-500-40 MG-UNT-MCG TABS 1 tab by mouth tw ice daily CALCIUM-VITAMIN D-VITAMIN K 10883068199 Active Hope landers MD PhD Active DAILY VALUE MULTIVITAMIN TABS 1 tab by mouth twice daily MULTIPLE VITAMIN 63161152485 Active Hope Benavidez MD PhD Active FISH OIL 306 MG CAPS 1 tab by mouth three times daily OMEGA-3 FATTY ACIDS 96844668016 Active Hope Benavidez MD PhD Active LUTEIN 10 MG TABS 1 tab daily LUTEIN 41853790600 Act cash Hope Benavidez MD PhD Active TRIAMTERENE-HCTZ 37.5-25 MG TABS 1 tab by mouth daily TRIAMTERENE-HCTZ 04647075989 Active Kylie Hlot INSULATION PROFESSIONAL Active CYCLOBENZAPRINE HCL 10 MG TABS 1 tablet by mouth three times daily as needed for headaches CYCLOBENZAPRINE HCL 35536460631 No Longe r Active Adam Yates MD Active OMEPRAZOLE 20 MG CPDR 1 tablet by mouth daily for GERD OMEPRAZOLE 53306805459 No Longer Active Adam Yates MD A ctive ZOFRAN 8 MG TABS 1 tab by mouth every 12 hours prn 201 05/16/09 ONDANSETRON HCL 33955439152 No Longer Active Adam Yates MD Active PHENADOZ 25 MG SUPP 1 every 4 hrs. PRN PROMETHA ZINE HCL 68191070125 No Longer Active Adam Yates MD Active POTASSIUM CHLORIDE 20 MEQ PACK by mouth twice a day prn POTASSIUM CHLORIDE 67384110908 No Longer Active Adam Yates MD Active PROMETHAZINE HCL 25 MG TABS 1 Q. 4 hr. PRN PROM ETHAZINE HCL 43297420511 No Longer Active Adam Yates MD Active INNOPRAN XL 120 MG [id number] Take one by mouth daily 2 PROPRANOLOL HCL SR BEADS 12744849892 No Longer Active Adam Yates MD A ctive FLAGYL 500 MG TABS 1 pill by mouth three times daily, for diarrh ea METRONIDAZOLE 20969015526 No Longer Active Hope Benavidez MD PhD Active DYAZIDE 37.5-25 MG CAPS 1 qd TRIAMTERENE-HC TZ 89265244702 No Longer Active Hope Benavidez MD PhD Active PROZAC 20 MG CAPS 1 q d FLUOXETINE HCL 97300 062548 No Longer Active Hope Benavidez MD PhD Active SIMVASTATIN 40 MG TABS 1 qd SIMVASTATIN 004 36744385 No Longer Active Adam Yates MD Active MELOXICAM 15 MG TABS 1 qd MELOXICAM 8091466 8734 No Longer Active Adam Yates MD Active IMODIUM A-D 2 MG TABS 2 onset at diarrhea and prn. LOPERAMIDE HCL 93758952233 Active Hope Benavidez MD PhD Active EXCEDRIN EXTRA STRENGTH 250-250-65 MG TABS 1-2 q6h PRN headache 201 04/16/21 [id number] 88840487370 Active Hope Benavidez MD PhD Active FLAGYL 500 MG TABS 1 qid METRONIDAZOLE 87901 101785 No Longer Active Adam Yates MD Active LEVAQUIN 750 MG TABS 1 qd LEVOFLOXACIN 5486 3847620 No Longer Active Adam Yates MD Active ADULT ASPIRIN LOW STRENGTH 81 MG TBDP 1 qd A SPIRIN 40116043982 Active Hope Benavidez MD PhD Active LEVAQUIN 750 MG TABS 1 qd LEVAQUIN 750 MG T ABS 772438 LEVOFLOXACIN Inactive FLAGYL 500 MG TABS 1 qid FLAGYL 500 MG TABS 671778 METRONIDAZOLE Inactive MELOXICAM 15 MG TABS 1 qd MELOXICAM 15 MG T ABS 529149 MELOXICAM Inactive SIMVASTATIN 40 MG TABS 1 qd SIMVASTATIN 40 MG TABS 227079 SIMVASTATIN Inactive PROZAC 20 MG CAPS 1 q d PROZAC 20 MG CAPS 31 0385 FLUOXETINE HCL Inactive DYAZIDE 37.5-25 MG CAPS 1 qd DYAZIDE 37.5 -25 MG CAPS 381381 TRIAMTERENE-HCTZ Inactive INNOPRAN XL 120 MG [id number] Take one by mouth daily 2 INNOPRAN XL 120 MG [id number] PROPRANOLOL HCL SR BEADS Inactive PROMETHAZINE HCL 25 MG TABS 1 Q. 4 hr. PRN PROMETHAZINE HCL 25 MG TABS 593621 PROMETHAZINE HCL Inactive POTASSIUM CHLORIDE 20 MEQ PACK by mouth twice a day prn POTASSIUM CHLORIDE 20 MEQ PACK 573998 POTASSIUM CHLORIDE Inactive PHENADOZ 25 MG SUPP 1 every 4 hrs. PRN PHENADOZ 2 5 MG SUPP 400101 PROMETHAZINE HCL Inactive ZOFRAN 8 MG TABS 1 tab by mouth every 12 hours prn 201 05/16/09 ZOFRAN 8 MG TABS 326431 ONDANSETRON HCL Inactive OMEPRAZOLE 20 MG CPDR 1 tablet by mouth daily for GERD OMEPRAZOLE 20 MG CPDR 432623 OMEPRAZOLE Inactive CYCLOBENZAPRINE HCL 10 MG TABS 1 tablet by mouth three times daily as needed for headaches CYCLOBENZAPRINE HCL 10 MG TABS 639163 CYCLOBENZAPRINE HCL Inactive VITAMIN D3 4000 IU 1 tab 3 times daily VITAMIN D3 4000 IU Inactive PROPRANOLOL HCL 80 MG TABS 1 tab tue. and thur. 04/10 PROPRANOLOL HCL 80 MG TABS 169548 PROPRANOLOL HCL Inactive CYANOCOBALAMIN 1000 MCG/ML INJ SOLN 1 injection every 2 weeks 20 20/01/03 CYANOCOBALAMIN 1000 MCG/ML INJ SOLN 172704 CYANOCOBALAM IN Inactive MAGNESIUM GLUCONATE 250 MG TABS 1 tab tid 4 MAGNESIUM GLUCONATE 250 MG TABS 835234 MAGNESIUM GLUCONATE Inactive LOMOTIL 2.5-0.025 MG TABS 1 tab by mouth prn 4 LOMOTIL 2.5- 0.025 MG TABS 2509919 DIPHENOXYLATE-ATROPINE Inactive FLORANEX PACK 1 pack three times daily, for bowel health FLORANEX PACK LACTOBACILLUS Inactive IRON 325 (65 FE) MG TABS 1 every other day IRON 325 (65 FE) MG TABS 397649 FERROUS SULFATE Inactive FLAGYL 500 MG TABS 1 pill by mouth three times daily, for diarrh ea FLAGYL 500 MG TABS 937615 METRONIDAZOLE Inactive BACTRIM DS 800-160 MG TABS 1 pill by mouth twice daily, for UTI BACTRIM DS 800-160 MG TABS 199609 SULFAMETHOXAZOLE-TRIM ETHOPRIM Inactive Advance Directives Directive Description [...] - 3141-9 143.5 [lb_av] Weigh t Measured Diagnostic Results Date Name Value Unit Range Description Lab Report: Calcium - Chemistry calcium, serum 8.7 mg/dL 8.5-10.1 Lab Report: CBC W/DIFF, Comp. Metabolic Panel - Chemistry sodium, serum 142 mmol/L 298-239 2182/04/20 carbon dioxide, venous blood 34.7 mmol/L 21.0-32 .0 potassium, serum 3.5 mmol/L 3.5-5.2 chloride, serum 102 mmol/L 98-107 blood glucose 102 mg/dL 65-110 urea nitrogen, blood 24 mg/dL 7-18 creatinine, serum 1.37 mg/dL 0.55-1.30 alanine aminotransferase (SGPT), serum 72 U/L 12-78 aspartate aminotransferase (SGOT), serum 44 U/L 15-37 calcium, serum 9.0 mg/dL 8.5-10.1 bilirubin, serum, total 0.50 mg/dL 0.00-1.00 sodium, serum 138 mmol/L 937-214 9603/10/23 carbon dioxide, venous blood 29.5 mmol/L 21.0-32 [...] 11 .6-14.8 platelet count 189 10^3/MM^3 10*3/mm3 594-715 7128/04/20 leukocyte count, blood 5.9 10^3/MM^3 10*3/mm3 4.6-10.2 [...] 1.24 m[iU]/mL 0.36-3.74 cholesterol, serum 227 mg/dL 995-808 3431/10/23 triglyceride, serum, fasting 144 mg/dL 30-200 HDL cholesterol, serum 60 mg/dL 32-96 LDL cholesterol, serum 138 mg/dL 0-130 Lab Report: Lipid Panel, MICROALBUMIN, T hyroid Stimulating Hormone (L) - Lab microalbumin, urine 10 0-19 Encounters Code Encounter Date Provider Facility CPT-60434 Level 4 Est. Patient 17:00:48 CDT Kylieshubham Lund [facility] CPT-80022 Level 3 Est. Patient 13:15:54 CDT Kylie Lund [facility] CPT-96521 Level 3 Est. Patient 09:10:11 CDT Kylie Lund [facility] CPT-91042 Level 4 Est. Patient 12:08:30 BUSINESS OBJECTS ANALYST Hope cohn MD PhD [facility] CPT-83062 Level 4 Est. Patient 19:08:42 BUSINESS OBJECTS ANALYST Hope cohn MD PhD [facility] CPT-88507 Level 4 Est. Patient 20:04:51 CDT Hope cohn MD PhD [facility] CPT-33908 Level 3 New Patient 01:46:11 BUSINESS OBJECTS ANALYST Hope landers MD PhD [facility] Procedures Code Procedure Name Date Entry Date Standard Desc ription CPT-G0438 Initial Annual Wellness Exam 14:19:57 CD T CPT-G0009 Administration of Pneumococcal Vaccine 9 11:36:25 CDT CPT-23708 Prevnar 13 Intramuscular Suspension 1 1:36:25 CDT CPT-84478 Prevnar 13 Intramuscular Suspension 1 0:40:58 CDT CPT-J0897 Prolia 60 mg 10:37:16 CDT CPT-97882 Abx/Therapy Injection 10:37:16 CDT CPT-J0897 Prolia 60 mg 16:09:34 BUSINESS OBJECTS ANALYST CPT-J0897 Prolia 60 mg 11:10:35 BUSINESS OBJECTS ANALYST CPT-61871 Abx/Therapy Injection 11:10:35 BUSINESS OBJECTS ANALYST CPT-000 Give Appropriate Flu Vaccine 17:01:15 BUSINESS OBJECTS ANALYST 2 CPT-64917 Fluzone High Dose (65+) 15:03:08 BUSINESS OBJECTS ANALYST 02/15 CPT-41503 Immunization Single Admin 15:03:08 BUSINESS OBJECTS ANALYST 2014 CPT-OV Office Visit 15:58:06 CDT CPT-J0897 Prolia 60 mg 08:45:38 CDT CPT-39256 Abx/Therapy Injection 08:45:38 CDT CPT-J3420 Vitamin B12 1000mcg (Cyanocobalamin) 09:26:20 BUSINESS OBJECTS ANALYST CPT-29678 Abx/Therapy Injection 09:26:20 BUSINESS OBJECTS ANALYST CPT-J3420 Vitamin B12 1000mcg (Cyanocobalamin) 09:44:40 BUSINESS OBJECTS ANALYST CPT-87835 Abx/Therapy Injection 09:44:40 BUSINESS OBJECTS ANALYST CPT-J3420 Vitamin B12 1000mcg (Cyanocobalamin) 09:15:54 BUSINESS OBJECTS ANALYST CPT-91412 Abx/Therapy Injection 09:15:54 BUSINESS OBJECTS ANALYST CPT-J3420 Vitamin B12 1000mcg (Cyanocobalamin) 09:46:44 BUSINESS OBJECTS ANALYST CPT-06278 Abx/Therapy Injection 09:46:44 BUSINESS OBJECTS ANALYST CPT-J3420 Vitamin B12 1000mcg (Cyanocobalamin) 09:47:34 BUSINESS OBJECTS ANALYST CPT-82384 Abx/Therapy Injection 09:47:34 BUSINESS OBJECTS ANALYST CPT-J3420 Vitamin B12 1000mcg (Cyanocobalamin) 14:35:50 BUSINESS OBJECTS ANALYST CPT-J3420 Vitamin B12 1000mcg (Cyanocobalamin) 09:25:05 BUSINESS OBJECTS ANALYST CPT-53049 Abx/Therapy Injection 09:25:05 BUSINESS OBJECTS ANALYST CPT-G0008 Administration of Influenza Virus Vaccine 13:36:47 CDT CPT-83258 Fluzone High-Dose Intramuscular Suspension 11/15 13:36:47 CDT CPT-J0897 Prolia 60 mg 08:50:41 CDT CPT-73426 Abx/Therapy Injection 08:50:41 CDT CPT-45641 Bone Density 12:06:12 CDT CPT-98574 Bone Density 08:54:40 CDT CPT-OV Office Visit 15:37:02 CDT CPT-86043 Postop F/U Visit 15:47:49 CDT CPT-26320 Postop F/U Visit 15:21:02 CDT CPT-TCM Transitional Care Mgmt-High 07:52:27 CDT 20 20/06/01 CPT-84409 Venipuncture Draw Fee 13:51:18 CDT CPT-93201 Venipuncture Draw Fee 10:14:55 BUSINESS OBJECTS ANALYST CPT-45148 Venipuncture Draw Fee 13:39:45 BUSINESS OBJECTS ANALYST CPT-OV Office Visit 15:11:22 BUSINESS OBJECTS ANALYST CPT-23489 Venipuncture Draw Fee 09:20:49 BUSINESS OBJECTS ANALYST CPT-33751 Venipuncture Draw Fee 16:52:15 BUSINESS OBJECTS ANALYST CPT-60099 Venipuncture Draw Fee 10:37:24 BUSINESS OBJECTS ANALYST CPT-01028 Venipuncture Draw Fee 08:21:21 BUSINESS OBJECTS ANALYST CPT-28005 Venipuncture Draw Fee 08:30:20 BUSINESS OBJECTS ANALYST CPT-34440 Venipuncture Draw Fee 14:53:21 BUSINESS OBJECTS ANALYST CPT-24663 Venipuncture Draw Fee 09:40:56 BUSINESS OBJECTS ANALYST CPT-54161 Venipuncture Draw Fee 10:30:47 BUSINESS OBJECTS ANALYST CPT-74720 Venipuncture Draw Fee 10:46:17 BUSINESS OBJECTS ANALYST CPT-95867 Venipuncture Draw Fee 11:12:45 BUSINESS OBJECTS ANALYST CPT-32452 Venipuncture Draw Fee 09:53:33 BUSINESS OBJECTS ANALYST CPT-02816 Venipuncture Draw Fee 11:53:51 BUSINESS OBJECTS ANALYST CPT-51581 Venipuncture Draw Fee 10:33:50 BUSINESS OBJECTS ANALYST CPT-33187 Venipuncture Draw Fee 10:05:01 BUSINESS OBJECTS ANALYST CPT-59466 Venipuncture Draw Fee 14:32:52 BUSINESS OBJECTS ANALYST CPT-39612 Venipuncture Draw Fee 09:46:13 BUSINESS OBJECTS ANALYST CPT-02518 Venipuncture Draw Fee 11:34:27 BUSINESS OBJECTS ANALYST CPT-96854 Venipuncture Draw Fee 13:17:16 BUSINESS OBJECTS ANALYST CPT-87300 Venipuncture Draw Fee 12:05:39 CDT CPT-54824 Venipuncture Draw Fee 12:49:12 CDT CPT-92286 Venipuncture Draw Fee 12:37:18 CDT CPT-64526 Venipuncture Draw Fee 10:57:11 CDT CPT-51062 Venipuncture Draw Fee 13:47:40 CDT CPT-29954 Venipuncture Draw Fee 10:02:17 CDT CPT-49739 TB Tubersol 17:32:32 CDT CPT-OV Office Visit 16:21:53 CDT CPT-OV Office Visit 15:49:22 CDT CPT-OV Office Visit 17:16:31 CDT CPT-OV Office Visit 10:43:31 CDT
--- OUTSIDE RECORDS SUMMARY | 2019-02-09 12:35 | XMS REPORT | Clinical Summary ---
Author Author Renaldo, Florecita Munoz Organization [facility] [employer] Address Unknown Phone Unavailable Allergies, Adverse Reactions, [...] PhD Hyperpotassemia GERD 530.81 Resolved Kylie Yokum ONLINE PROGRAM COORDINATOR Esophageal reflux Health maintenance exam V70.0 Resolved Adolfo Yates MD Routine general medical examination at a health care facility Anemia 285.9 Resolved Kylie Yanet ONLINE PROGRAM COORDINATOR Anemia, unspecified Personal history of malignant neoplasm of large intestine V10.05 Active Adam Yates MD Personal history of malignant neoplasm of large intestine Hypomagnesemia 275.2 Resolved Kylie Yanet ONLINE PROGRAM COORDINATOR Disorders of magnesium metabolism Weakness 780.79 [...] Sebaceous cyst, scalp 706.2 Resolved Kylie Yokum ONLINE PROGRAM COORDINATOR Sebaceous cyst Cervical lymphadenopathy, anterior, left 785.6 Resolv ed Kylie Yokum ONLINE PROGRAM COORDINATOR Enlargement of lymph nodes Need for prophylactic vaccination and inoculation against in fluenza V04.81 Resolved Adam Yates MD Need for prophylactic vaccination and inoculation against influenza Preventive health care V70.0 Active Kylie Yokum ONLINE PROGRAM COORDINATOR Routine general medical examination at a health care facility Thyroid nodule, left 241.0 Active Kylie Yokum A PRN Nontoxic uninodular goiter Screening mammogram V76.12 Active Kylie Yogabbium AP RN Other screening mammogram Mandy 706.2 Resolved Kylie Yokum ONLINE PROGRAM COORDINATOR Sebaceous cyst Colon cancer, ascending 153.6 Resolved Kylie Yok um ONLINE PROGRAM COORDINATOR Malignant neoplasm of ascending colon Foot pain, left 729.5 Active Sulema Naff VISITOR SERVICES TECHNICIAN Pain in limb Splinter 919.6 Active Kylie Yokum ONLINE PROGRAM COORDINATOR Superficial foreign body (splinter) of other, multiple, and unspecified sites, without major open wound and without mention of infection ABDOMINAL PAIN, RIGHT LOWER QUADRANT ICD-789.03 Inactive Kina Joshua ONLINE PROGRAM COORDINATOR ADENOCARCINOMA, COLON, 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 Dick Yates MD ABDOMINAL PAIN, GENERALIZED ICD-789.07 Inactive Hope Benavidez MD PhD FEVER UNSPECIFIED ICD-780.60 Inactive Hope cohn MD PhD UNSPECIFIED VENOUS INSUFFICIENCY ICD-459.81 Elda ctive Adam Yates MD ADENOCARCINOMA, 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 Inac tive Hope Benavidez MD PhD Hyperkalemia ICD-276.7 Inactive Hope Benavidez MD PhD GERD ICD-530.81 Inactive Kylie Holt ONLINE PROGRAM COORDINATOR 2015 Health maintenance exam ICD-V70.0 Inactive Adolfo Yates MD Anemia ICD-285.9 Inactive Kylie Holt ONLINE PROGRAM COORDINATOR 07/24 Hypomagnesemia ICD-275.2 Inactive Kylie Holt ONLINE PROGRAM COORDINATOR Weakness ICD-780.79 Inactive Hope Benavidez MD [...] Sebaceous cyst, scalp ICD-706.2 Inactive Tracy Holt ONLINE PROGRAM COORDINATOR Cervical lymphadenopathy, anterior, left ICD-785.6 Inactive Kylie Holt ONLINE PROGRAM COORDINATOR Need for prophylactic vaccination and inoculation against in fluenza ICD-V04.81 Inactive Adam Yates MD Mandy ICD-706.2 Inactive Kylie Holt ONLINE PROGRAM COORDINATOR 07/20 Colon cancer, ascending ICD-153.6 Inactive Gabbi Holt ONLINE PROGRAM COORDINATOR Medication List Medication Instructions Start Date Stop Date Generic Name NDC Status Provider Patient Instruction COQ10 100 MG ORAL CAPS 1 daily COENZYME Q10 [id number] 20 Active LETY Nation Active VITAMIN D3 2000 UNIT ORAL CAPS Melaleuca-One daily CHOLECALCIFEROL 40739985801 Active Kylie Holt APRN Active PROBIOTIC DAILY ORAL CAPS Take one daily PROBIOTIC PRODUCT 97057623756 Active Kylie Holt APRN Active IRON 325 (65 FE) MG TABS 1 every other day FERR OUS SULFATE 91409548867 No Longer Active Kylie Holt APRN Active FLORANEX PACK 1 pack three times daily, for bowel health LACTOBACILLUS 71932225677 No Longer Active Kylie Holt APRN Active LOMOTIL 2.5-0.025 MG TABS 1 tab by mouth prn 4 DIPHENOXYLATE-ATROPINE 19774905169 No Longer Active Kylie Holt APRN Active MAGNESIUM GLUCONATE 250 MG TABS 1 tab tid 4 MAGNESIUM GLUCONATE 96235276451 No Longer Active Kylie Holt APRN Active CYANOCOBALAMIN 1000 MCG/ML INJ SOLN 1 injection every 2 weeks 20 20/01/03 CYANOCOBALAMIN 98599718449 No Longer Active Kylie Holt APRN Active ATENOLOL 25 MG ORAL TABS 1/2 pill by mouth daily, for headac hes, blood pressure ATENOLOL 78869346012 Active Kylieshubham Holt APRN Active PROPRANOLOL HCL 80 MG TABS 1 tab tue. and thur. 04/10 PROPRANOLOL HCL 22698585909 No Longer Active Hope Benavidez MD PhD A ctive VITAMIN D3 4000 IU 1 tab 3 times daily VITAMIN D3 4000 IU No Longer Active Hope Benavidez MD PhD Active BACTRIM DS 800-160 MG TABS 1 pill by mouth twice daily, for UTI SULFAMETHOXAZOLE-TRIMETHOPRIM 69461820847 No Longer Active A attila Benavidez MD PhD Active PROLIA 60 MG/ML SOLN 1 shot every 6 months for osteoprosis DENOSUMAB 86933068831 Active Hope Benavidez MD PhD Active CALCIUM + D + K 750-500-40 MG-UNT-MCG TABS 1 tab by mouth tw ice daily CALCIUM-VITAMIN D-VITAMIN K 77220685751 Active Hope landers MD PhD Active DAILY VALUE MULTIVITAMIN TABS 1 tab by mouth twice daily MULTIPLE VITAMIN 12664189579 Active Hope Benavidez MD PhD Active FISH OIL 306 MG CAPS 1 tab by mouth three times daily OMEGA-3 FATTY ACIDS 68324216822 Active Hope Benavidez MD PhD Active LUTEIN 10 MG TABS 1 tab daily LUTEIN 84623999632 Act cash Hope Benavidez MD PhD Active TRIAMTERENE-HCTZ 37.5-25 MG TABS 1 tab by mouth daily TRIAMTERENE-HCTZ 45499864798 Active Kylie Holt APRN Active CYCLOBENZAPRINE HCL 10 MG TABS 1 tablet by mouth three times daily as needed for headaches CYCLOBENZAPRINE HCL 94845923018 No Longe r Active Adam Yates MD Active OMEPRAZOLE 20 MG CPDR 1 tablet by mouth daily for GERD OMEPRAZOLE 42436760713 No Longer Active Adam Yates MD A ctive ZOFRAN 8 MG TABS 1 tab by mouth every 12 hours prn 201 05/16/09 ONDANSETRON HCL 99208995352 No Longer Active Adam Yates MD Active PHENADOZ 25 MG SUPP 1 every 4 hrs. PRN PROMETHA ZINE HCL 24191886739 No Longer Active Adam Yates MD Active POTASSIUM CHLORIDE 20 MEQ PACK by mouth twice a day prn POTASSIUM CHLORIDE 35252359316 No Longer Active Adam Yates MD Active PROMETHAZINE HCL 25 MG TABS 1 Q. 4 hr. PRN PROM ETHAZINE HCL 62089052179 No Longer Active Adam Yates MD Active INNOPRAN XL 120 MG [id number] Take one by mouth daily 2 PROPRANOLOL HCL SR BEADS 73758783614 No Longer Active Adam Yates MD A ctive FLAGYL 500 MG TABS 1 pill by mouth three times daily, for diarrh ea METRONIDAZOLE 84527300813 No Longer Active Hope Benavidez MD PhD Active DYAZIDE 37.5-25 MG CAPS 1 qd TRIAMTERENE-HC TZ 95810723001 No Longer Active Hope Beanvidez MD PhD Active PROZAC 20 MG CAPS 1 q d FLUOXETINE HCL 73663 286680 No Longer Active Hope Benavidez MD PhD Active SIMVASTATIN 40 MG TABS 1 qd SIMVASTATIN 004 61474976 No Longer Active Adam Yates MD Active MELOXICAM 15 MG TABS 1 qd MELOXICAM 7028898 1518 No Longer Active Adam Yates MD Active IMODIUM A-D 2 MG TABS 2 onset at diarrhea and prn. LOPERAMIDE HCL 99517034278 Active Hope Benavidez MD PhD Active EXCEDRIN EXTRA STRENGTH 250-250-65 MG TABS 1-2 q6h PRN headache 201 04/16/21 [id number] 48142664822 Active Hope Benavidez MD PhD Active FLAGYL 500 MG TABS 1 qid METRONIDAZOLE 57482 364635 No Longer Active Adam Yates MD Active LEVAQUIN 750 MG TABS 1 qd LEVOFLOXACIN 5486 3222823 No Longer Active Adam Yates MD Active ADULT ASPIRIN LOW STRENGTH 81 MG TBDP 1 qd A SPIRIN 14633387164 Active Hope Benavidez MD PhD Active LEVAQUIN 750 MG TABS 1 qd LEVAQUIN 750 MG T ABS 493415 LEVOFLOXACIN Inactive FLAGYL 500 MG TABS 1 qid FLAGYL 500 MG TABS 613810 METRONIDAZOLE Inactive MELOXICAM 15 MG TABS 1 qd MELOXICAM 15 MG T ABS 089319 MELOXICAM Inactive SIMVASTATIN 40 MG TABS 1 qd SIMVASTATIN 40 MG TABS 119496 SIMVASTATIN Inactive PROZAC 20 MG CAPS 1 q d PROZAC 20 MG CAPS 31 0385 FLUOXETINE HCL Inactive DYAZIDE 37.5-25 MG CAPS 1 qd DYAZIDE 37.5 -25 MG CAPS 024990 TRIAMTERENE-HCTZ Inactive INNOPRAN XL 120 MG [id number] Take one by mouth daily 2 INNOPRAN XL 120 MG [id number] PROPRANOLOL HCL SR BEADS Inactive PROMETHAZINE HCL 25 MG TABS 1 Q. 4 hr. PRN PROMETHAZINE HCL 25 MG TABS 010290 PROMETHAZINE HCL Inactive POTASSIUM CHLORIDE 20 MEQ PACK by mouth twice a day prn POTASSIUM CHLORIDE 20 MEQ PACK 6823675 POTASSIUM CHLORIDE Inactive PHENADOZ 25 MG SUPP 1 every 4 hrs. PRN PHENADOZ 2 5 MG SUPP 091376 PROMETHAZINE HCL Inactive ZOFRAN 8 MG TABS 1 tab by mouth every 12 hours prn 201 05/16/09 ZOFRAN 8 MG TABS 531061 ONDANSETRON HCL Inactive OMEPRAZOLE 20 MG CPDR 1 tablet by mouth daily for GERD OMEPRAZOLE 20 MG CPDR 965148 OMEPRAZOLE Inactive CYCLOBENZAPRINE HCL 10 MG TABS 1 tablet by mouth three times daily as needed for headaches CYCLOBENZAPRINE HCL 10 MG TABS 121250 CYCLOBENZAPRINE HCL Inactive VITAMIN D3 4000 IU 1 tab 3 times daily VITAMIN D3 4000 IU Inactive PROPRANOLOL HCL 80 MG TABS 1 tab tue. and thur. 04/10 PROPRANOLOL HCL 80 MG TABS 294143 PROPRANOLOL HCL Inactive CYANOCOBALAMIN 1000 MCG/ML INJ SOLN 1 injection every 2 weeks 20 20/01/03 CYANOCOBALAMIN 1000 MCG/ML INJ SOLN 921182 CYANOCOBALAM IN Inactive MAGNESIUM GLUCONATE 250 MG TABS 1 tab tid 4 MAGNESIUM GLUCONATE 250 MG TABS 430162 MAGNESIUM GLUCONATE Inactive LOMOTIL 2.5-0.025 MG TABS 1 tab by mouth prn 4 LOMOTIL 2.5- 0.025 MG TABS 4157844 DIPHENOXYLATE-ATROPINE Inactive FLORANEX PACK 1 pack three times daily, for bowel health FLORANEX PACK LACTOBACILLUS Inactive IRON 325 (65 FE) MG TABS 1 every other day IRON 325 (65 FE) MG TABS 962265 FERROUS SULFATE Inactive FLAGYL 500 MG TABS 1 pill by mouth three times daily, for diarrh ea FLAGYL 500 MG TABS 687051 METRONIDAZOLE Inactive BACTRIM DS 800-160 MG TABS 1 pill by mouth twice daily, for UTI BACTRIM DS 800-160 MG TABS 285878 SULFAMETHOXAZOLE-TRIM ETHOPRIM Inactive Advance Directives Directive Description [...] 11 .0-15.0 platelet count 157 THOUSAND/UL 10*3/mm3 647-183 0128/04/20 mean platelet volume 8.9 fL 7.5-12.5 Lab Report: CBC W/DIFF, Comp. Metabolic Panel, Thyroid Stimulating Hormo ... - Chemistry sodium, serum 139 mmol/L 878-348 2281/10/20 carbon dioxide, venous blood 32.2 mmol/L 21.0-32 [...] Panel, Thyroid Stimulating Hormo ... - Hematology hemoglobin, blood 15.1 g/dL 12.0-16.0 hematocrit, blood 44.5 % 36.0-46.0 mean corpuscular volume, RBC 95 fL 80-97 mean corpuscular hemoglobin, RBC 32.2 pg 27. 0-31.2 mean corpuscular hemoglobin concentration, RBC 33.9 G/DL % 31.8-35.4 red blood cell distribution width 14.3 % 11 .6-14.8 platelet count 180 10^3/MM^3 10*3/mm3 947-660 9494/10/20 erythrocyte (RBC) count 4.69 10^6/MM^3 10*6/mm3 4.04-5.4 8 lymphocytes as percent of blood leukocytes 37.9 % 20.5-51.1 monocytes as percent of blood leukocytes 4.7 % 1.7-9.3 neutrophils as percent of blood leukocytes 53.4 % 42.2-75.2 leukocyte count, blood 6.0 10^3/MM^3 10*3/mm3 4.6-10.2 Lab Report: CEA - Serology carcinoembryonic antigen 0.9 ng/mL carcinoembryonic antigen 0.9 ng/mL Lab Report: Lipid Panel, Calcium - Chemi stry cholesterol, serum 200 mg/dL 597-609 1518/11/22 triglyceride, serum, fasting 129 mg/dL 30-200 HDL cholesterol, serum 56 mg/dL 32-96 LDL cholesterol, serum 118 mg/dL 0-130 calcium, serum 9.0 mg/dL 8.5-10.1 Lab Report: MicroAlb Random w/creat/6517 - Urinalysis microalbumin/total urine volume 8 mg/L Units converted. See lab report for original value. microalbumin/creatinine ratio, urine 15 MCG/MG CREAT mg/L <30 Encounters Code Encounter Date Provider Facility CPT-49579 Level 3 Est. Patient 17:54:48 CDT Kylie boyd [facility] CPT-54686 Level 3 Est. Patient 16:26:30 CDT Kina blackmon [facility] CPT-88010 Level 3 New Patient 16:22:01 ENGLISH COMPOSITION TEACHER Adam Yates MD [facility] CPT-26158 Level 4 Est. Patient 17:00:48 CDT Kylie boyd [facility] CPT-88735 Level 3 Est. Patient 13:15:54 CDT Kylie Lund [facility] CPT-56336 Level 3 Est. Patient 09:10:11 CDT Kylie Lund [facility] CPT-06390 Level 4 Est. Patient 12:08:30 ENGLISH COMPOSITION TEACHER Hope cohn MD [facility] CPT-84909 Level 4 Est. Patient 19:08:42 ENGLISH COMPOSITION TEACHER Hope cohn MD PhD [facility] CPT-00783 Level 4 Est. Patient 20:04:51 CDT Hope cohn MD [facility] CPT-45101 Level 3 New Patient 01:46:11 ENGLISH COMPOSITION TEACHER Hope landers MD [facility] Procedures Code Procedure Name Date Entry Date Standard Desc ription CPT-31755 Bone Density - XRAY USE ONLY 10:27:12 CDT 2 CPT-G0439 [facility] Annual Wellness Exam 17:54:53 CDT CPT-05069 Foot, left, comp min 3V - XRAY USE ONLY 12:22:49 CDT CPT-G0009 Administration of Pneumococcal Vaccine 3 12:18:00 CDT CPT-81351 Pneumovax 23 Injection Injectable 25 MCG /0.5ML 12:18:00 CDT CPT-J0897 Prolia 60 mg 14:14:16 ENGLISH COMPOSITION TEACHER CPT-67932 Abx/Therapy Injection 14:14:15 ENGLISH COMPOSITION TEACHER CPT-63206 Lipid - LAB USE ONLY 10:01:52 ENGLISH COMPOSITION TEACHER 2 CPT-64829 Calcium - LAB USE ONLY 10:01:51 ENGLISH COMPOSITION TEACHER CPT-54012 Venipuncture Draw Fee 10:01:51 ENGLISH COMPOSITION TEACHER CPT-LR Lesion Removal 16:22:01 ENGLISH COMPOSITION TEACHER CPT-94193 TSH - LAB USE ONLY 14:26:02 CDT CPT-70465 CMP - LAB USE ONLY 14:26:01 CDT CPT-27621 CBC with Diff - LAB USE ONLY 14:26:01 CDT 2 CPT-19274 Venipuncture Draw Fee 14:26:01 CDT CPT-64904 First Vx - Ix admin for Medicare patients 13:27:08 CDT CPT-51970 Fluzone High-Dose Intramuscular Suspension 11/26 13:27:08 CDT CPT-G0438 Initial Annual Wellness Exam 14:19:57 CD T CPT-G0009 Administration of Pneumococcal Vaccine 9 11:36:25 CDT CPT-62128 Prevnar 13 Intramuscular Suspension 1 1:36:25 CDT CPT-93598 Prevnar 13 Intramuscular Suspension 1 0:40:58 CDT CPT-J0897 Prolia 60 mg 10:37:16 CDT CPT-11191 Abx/Therapy Injection 10:37:16 CDT CPT-J0897 Prolia 60 mg 16:09:34 ENGLISH COMPOSITION TEACHER CPT-J0897 Prolia 60 mg 11:10:35 ENGLISH COMPOSITION TEACHER CPT-16257 Abx/Therapy Injection 11:10:35 ENGLISH COMPOSITION TEACHER CPT-000 Give Appropriate Flu Vaccine 17:01:15 ENGLISH COMPOSITION TEACHER 2 CPT-16869 Fluzone High Dose (65+) 15:03:08 ENGLISH COMPOSITION TEACHER 02/15 CPT-99732 Immunization Single Admin 15:03:08 ENGLISH COMPOSITION TEACHER 2014 CPT-OV Office Visit 15:58:06 CDT CPT-J0897 Prolia 60 mg 08:45:38 CDT CPT-88709 Abx/Therapy Injection 08:45:38 CDT CPT-J3420 Vitamin B12 1000mcg (Cyanocobalamin) 09:26:20 ENGLISH COMPOSITION TEACHER CPT-68406 Abx/Therapy Injection 09:26:20 ENGLISH COMPOSITION TEACHER CPT-J3420 Vitamin B12 1000mcg (Cyanocobalamin) 09:44:40 ENGLISH COMPOSITION TEACHER CPT-76856 Abx/Therapy Injection 09:44:40 ENGLISH COMPOSITION TEACHER CPT-J3420 Vitamin B12 1000mcg (Cyanocobalamin) 09:15:54 ENGLISH COMPOSITION TEACHER CPT-05751 Abx/Therapy Injection 09:15:54 ENGLISH COMPOSITION TEACHER CPT-J3420 Vitamin B12 1000mcg (Cyanocobalamin) 09:46:44 ENGLISH COMPOSITION TEACHER CPT-11493 Abx/Therapy Injection 09:46:44 ENGLISH COMPOSITION TEACHER CPT-J3420 Vitamin B12 1000mcg (Cyanocobalamin) 09:47:34 ENGLISH COMPOSITION TEACHER CPT-73434 Abx/Therapy Injection 09:47:34 ENGLISH COMPOSITION TEACHER CPT-J3420 Vitamin B12 1000mcg (Cyanocobalamin) 14:35:50 ENGLISH COMPOSITION TEACHER CPT-J3420 Vitamin B12 1000mcg (Cyanocobalamin) 09:25:05 ENGLISH COMPOSITION TEACHER CPT-71140 Abx/Therapy Injection 09:25:05 ENGLISH COMPOSITION TEACHER CPT-G0008 Administration of Influenza Virus Vaccine 13:36:47 CDT CPT-42789 Fluzone High-Dose Intramuscular Suspension 11/15 13:36:47 CDT CPT-J0897 Prolia 60 mg 08:50:41 CDT CPT-09823 Abx/Therapy Injection 08:50:41 CDT CPT-20972 Bone Density 12:06:12 CDT CPT-00991 Bone Density 08:54:40 CDT CPT-OV Office Visit 15:37:02 CDT CPT-01486 Postop F/U Visit 15:47:49 CDT CPT-81455 Postop F/U Visit 15:21:02 CDT CPT-TCMH Transitional Care Mgmt-High 07:52:27 CDT 20 20/06/01 CPT-82075 Venipuncture Draw Fee 13:51:18 CDT CPT-40736 Venipuncture Draw Fee 10:14:55 ENGLISH COMPOSITION TEACHER CPT-13100 Venipuncture Draw Fee 13:39:45 ENGLISH COMPOSITION TEACHER CPT-OV Office Visit 15:11:22 ENGLISH COMPOSITION TEACHER CPT-72357 Venipuncture Draw Fee 09:20:49 ENGLISH COMPOSITION TEACHER CPT-93723 Venipuncture Draw Fee 16:52:15 ENGLISH COMPOSITION TEACHER CPT-43403 Venipuncture Draw Fee 10:37:24 ENGLISH COMPOSITION TEACHER CPT-29572 Venipuncture Draw Fee 08:21:21 ENGLISH COMPOSITION TEACHER CPT-27495 Venipuncture Draw Fee 08:30:20 ENGLISH COMPOSITION TEACHER CPT-21592 Venipuncture Draw Fee 14:53:21 ENGLISH COMPOSITION TEACHER CPT-21544 Venipuncture Draw Fee 09:40:56 ENGLISH COMPOSITION TEACHER CPT-37503 Venipuncture Draw Fee 10:30:47 ENGLISH COMPOSITION TEACHER CPT-11178 Venipuncture Draw Fee 10:46:17 ENGLISH COMPOSITION TEACHER CPT-32496 Venipuncture Draw Fee 11:12:45 ENGLISH COMPOSITION TEACHER CPT-62090 Venipuncture Draw Fee 09:53:33 ENGLISH COMPOSITION TEACHER CPT-06328 Venipuncture Draw Fee 11:53:51 ENGLISH COMPOSITION TEACHER CPT-24944 Venipuncture Draw Fee 10:33:50 ENGLISH COMPOSITION TEACHER CPT-69811 Venipuncture Draw Fee 10:05:01 ENGLISH COMPOSITION TEACHER CPT-19872 Venipuncture Draw Fee 14:32:52 ENGLISH COMPOSITION TEACHER CPT-88504 Venipuncture Draw Fee 09:46:13 ENGLISH COMPOSITION TEACHER CPT-29877 Venipuncture Draw Fee 11:34:27 ENGLISH COMPOSITION TEACHER CPT-99999 Venipuncture Draw Fee 13:17:16 ENGLISH COMPOSITION TEACHER CPT-90555 Venipuncture Draw Fee 12:05:39 CDT CPT-19190 Venipuncture Draw Fee 12:49:12 CDT CPT-51298 Venipuncture Draw Fee 12:37:18 CDT CPT-83731 Venipuncture Draw Fee 10:57:11 CDT CPT-98155 Venipuncture Draw Fee 13:47:40 CDT CPT-59116 Venipuncture Draw Fee 10:02:17 CDT CPT-47428 TB Tubersol 17:32:32 CDT CPT-OV Office Visit 16:21:53 CDT CPT-OV Office Visit 15:49:22 CDT CPT-OV Office Visit 17:16:31 CDT CPT-OV Office Visit 10:43:31 CDT
--- OUTSIDE RECORDS SUMMARY | 2019-02-09 12:36 | XMS REPORT | Clinical Summary ---
Author Author Admin, Florecita Munoz Organization [facility] Address Unknown Phone Unavailable Allergies, Adverse Reactions, [...] Sebaceous cyst, scalp 706.2 Resolved Kylie Holt [employer] Sebaceous cyst Cervical lymphadenopathy, anterior, left 785.6 Resolv ed Kylie Holt [employer] Enlargement of lymph nodes Need for prophylactic vaccination and inoculation against in fluenza V04.81 Active Citlaly Watkins RMA Need for prophylactic vaccination and inoculation against influenza Preventive health care V70.0 Active Kylie Holt [employer] Routine general medical examination at a health care facility Thyroid nodule, left 241.0 Active Kylie Gonzalez PRN Nontoxic uninodular goiter Screening mammogram V76.12 Active Kylie MEEK RN Other screening mammogram ABDOMINAL PAIN, RIGHT LOWER QUADRANT ICD-789.03 Inactive Kina Joshua [employer] ADENOCARCINOMA, COLON, 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 Dick Yates MD ABDOMINAL PAIN, GENERALIZED ICD-789.07 Inactive Hope Benavidez MD PhD FEVER UNSPECIFIED ICD-780.60 Inactive Hope cohn MD PhD UNSPECIFIED VENOUS INSUFFICIENCY ICD-459.81 Elda ctive Adam Yates MD ADENOCARCINOMA, 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 Inac tive Hope Benavidez MD PhD Hyperkalemia ICD-276.7 Inactive Hope Benavidez MD PhD GERD ICD-530.81 Inactive Kylie Holt [employer] 2015 Health maintenance exam ICD-V70.0 Bam Yates MD Anemia ICD-285.9 Inactive Kylie Holt [employer] 07/24 Weakness ICD-780.79 Inactive Hope Benavidez MD P hD Aftercare following surgery of the teeth,oral cavity a nd digestive system, NEC ICD-V58.75 Inactive Adam Yates MD Colon cancer ICD-153.9 Inactive Adam luna MD Asymptomatic postmenopausal status (age-related) (natural) I CD-V49.81 Inactive Hope Benavidez MD PhD Dysuria ICD-788.1 Inactive Hope Benavidez MD PhD 201 05/19/01 Sebaceous cyst, scalp ICD-706.2 Inactive Tracy Holt [employer] Cervical lymphadenopathy, anterior, left ICD-785.6 Inactive Kylie Holt [employer] Medication List Medication Instructions Start Date Stop Date Generic Name NDC Status Provider Patient Instruction VITAMIN D3 2000 UNIT ORAL CAPS Melaleuca-One daily CHOLECALCIFEROL 90356974955 Active Kylie Lundum [employer] Active PROBIOTIC DAILY ORAL CAPS Take one daily PROBIOTIC PRODUCT 46717889260 Active Kylie Lundum [employer] REG[employer]RAR Active IRON 325 (65 FE) MG TABS 1 every other day FERR OUS SULFATE 86159600253 No Longer Active Kylie Lundum [employer]RAR Active FLORANEX PACK 1 pack three times daily, for bowel health LACTOBACILLUS 03737013462 No Longer Active Kylie Lundum [employer] REG[employer]RAR Active LOMOTIL 2.5-0.025 MG TABS 1 tab by mouth prn 4 DIPHENOXYLATE-ATROPINE 58410846366 No Longer Active Kylie Yokum [employer] REG[employer]RAR Active MAGNESIUM GLUCONATE 250 MG TABS 1 tab tid 4 MAGNESIUM GLUCONATE 35906414001 No Longer Active Kylie Yokum [employer] Active CYANOCOBALAMIN 1000 MCG/ML INJ SOLN 1 injection every 2 weeks 20 20/01/03 CYANOCOBALAMIN 38771762248 No Longer Active Kylie Yokum [employer]RAR Active ATENOLOL 25 MG ORAL TABS 1/2 pill by mouth daily, for headac hes, blood pressure ATENOLOL 95169983082 Active Kylie Yokum [employer] Active PROPRANOLOL HCL 80 MG TABS 1 tab tue. and thur. 04/10 PROPRANOLOL HCL 51802777048 No Longer Active Hope Benavidez MD PhD A ctive VITAMIN D3 4000 IU 1 tab 3 times daily VITAMIN D3 4000 IU No Longer Active Hope Benavidez MD PhD Active BACTRIM DS 800-160 MG TABS 1 pill by mouth twice daily, for UTI SULFAMETHOXAZOLE-TRIMETHOPRIM 09116846373 No Longer Active A attila Benavidez MD PhD Active PROLIA 60 MG/ML SOLN 1 shot every 6 months for osteoprosis DENOSUMAB 15371753190 Active Hope Benavidez MD PhD Active CALCIUM + D + K 750-500-40 MG-UNT-MCG TABS 1 tab by mouth tw ice daily CALCIUM-VITAMIN D-VITAMIN K 05997706416 Active Hope landers MD PhD Active DAILY VALUE MULTIVITAMIN TABS 1 tab by mouth twice daily MULTIPLE VITAMIN 16896270332 Active Hope Benavidez MD PhD Active FISH OIL 306 MG CAPS 1 tab by mouth three times daily OMEGA-3 FATTY ACIDS 52403640387 Active Hope Benavidez MD PhD Active LUTEIN 10 MG TABS 1 tab daily LUTEIN 54090210927 Act cash Hope Benavidez MD PhD Active TRIAMTERENE-HCTZ 37.5-25 MG TABS 1 tab by mouth daily TRIAMTERENE-HCTZ 11528766371 Active Kylie Holt [employer] Active CYCLOBENZAPRINE HCL 10 MG TABS 1 tablet by mouth three times daily as needed for headaches CYCLOBENZAPRINE HCL 10038377610 No Longe r Active Adam Yates MD Active OMEPRAZOLE 20 MG CPDR 1 tablet by mouth daily for GERD OMEPRAZOLE 40641549781 No Longer Active Adam Yates MD A ctive ZOFRAN 8 MG TABS 1 tab by mouth every 12 hours prn 201 05/16/09 ONDANSETRON HCL 74129284784 No Longer Active Adam Yates MD Active PHENADOZ 25 MG SUPP 1 every 4 hrs. PRN PROMETHA ZINE HCL 98796981735 No Longer Active Adam Yates MD Active POTASSIUM CHLORIDE 20 MEQ PACK by mouth twice a day prn POTASSIUM CHLORIDE 12788235049 No Longer Active Adam Yates MD Active PROMETHAZINE HCL 25 MG TABS 1 Q. 4 hr. PRN PROM ETHAZINE HCL 83205943283 No Longer Active Adam Yates MD Active INNOPRAN XL 120 MG [id number] Take one by mouth daily 2 PROPRANOLOL HCL SR BEADS 18073090379 No Longer Active Adam Yates MD A ctive FLAGYL 500 MG TABS 1 pill by mouth three times daily, for diarrh ea METRONIDAZOLE 64352935991 No Longer Active Hope Benavidez MD PhD Active DYAZIDE 37.5-25 MG CAPS 1 qd TRIAMTERENE-HC TZ 34597331430 No Longer Active Hope Benavidez MD PhD Active PROZAC 20 MG CAPS 1 q d FLUOXETINE HCL 99523 075196 No Longer Active Hope Benavidez MD PhD Active SIMVASTATIN 40 MG TABS 1 qd SIMVASTATIN 004 66708789 No Longer Active Adam Yates MD Active MELOXICAM 15 MG TABS 1 qd MELOXICAM 8373370 4033 No Longer Active Adam Yates MD Active IMODIUM A-D 2 MG TABS 2 onset at diarrhea and prn. LOPERAMIDE HCL 58708455043 Active Hope Benavidez MD PhD Active EXCEDRIN EXTRA STRENGTH 250-250-65 MG TABS 1-2 q6h PRN headache 201 04/16/21 [id number] 77915218024 Active Hope Benavidez MD PhD Active FLAGYL 500 MG TABS 1 qid METRONIDAZOLE 99742 577622 No Longer Active Adam Yates MD Active LEVAQUIN 750 MG TABS 1 qd LEVOFLOXACIN 5486 1663057 No Longer Active Adam Yates MD Active ADULT ASPIRIN LOW STRENGTH 81 MG TBDP 1 qd A SPIRIN 61315064639 Active Hope Benavidez MD PhD Active LEVAQUIN 750 MG TABS 1 qd LEVAQUIN 750 MG T ABS 952541 LEVOFLOXACIN Inactive FLAGYL 500 MG TABS 1 qid FLAGYL 500 MG TABS 770225 METRONIDAZOLE Inactive MELOXICAM 15 MG TABS 1 qd MELOXICAM 15 MG T ABS 241501 MELOXICAM Inactive SIMVASTATIN 40 MG TABS 1 qd SIMVASTATIN 40 MG TABS 681700 SIMVASTATIN Inactive PROZAC 20 MG CAPS 1 q d PROZAC 20 MG CAPS 31 0385 FLUOXETINE HCL Inactive DYAZIDE 37.5-25 MG CAPS 1 qd DYAZIDE 37.5 -25 MG CAPS 820394 TRIAMTERENE-HCTZ Inactive INNOPRAN XL 120 MG [id number] Take one by mouth daily 2 INNOPRAN XL 120 MG [id number] PROPRANOLOL HCL SR BEADS Inactive PROMETHAZINE HCL 25 MG TABS 1 Q. 4 hr. PRN PROMETHAZINE HCL 25 MG TABS 502199 PROMETHAZINE HCL Inactive POTASSIUM CHLORIDE 20 MEQ PACK by mouth twice a day prn POTASSIUM CHLORIDE 20 MEQ PACK 858387 POTASSIUM CHLORIDE Inactive PHENADOZ 25 MG SUPP 1 every 4 hrs. PRN PHENADOZ 2 5 MG SUPP 577855 PROMETHAZINE HCL Inactive ZOFRAN 8 MG TABS 1 tab by mouth every 12 hours prn 201 05/16/09 ZOFRAN 8 MG TABS 789203 ONDANSETRON HCL Inactive OMEPRAZOLE 20 MG CPDR 1 tablet by mouth daily for GERD OMEPRAZOLE 20 MG CPDR 892816 OMEPRAZOLE Inactive CYCLOBENZAPRINE HCL 10 MG TABS 1 tablet by mouth three times daily as needed for headaches CYCLOBENZAPRINE HCL 10 MG TABS 330605 CYCLOBENZAPRINE HCL Inactive VITAMIN D3 4000 IU 1 tab 3 times daily VITAMIN D3 4000 IU Inactive PROPRANOLOL HCL 80 MG TABS 1 tab tue. and thur. 04/10 PROPRANOLOL HCL 80 MG TABS 593869 PROPRANOLOL HCL Inactive CYANOCOBALAMIN 1000 MCG/ML INJ SOLN 1 injection every 2 weeks 20 20/01/03 CYANOCOBALAMIN 1000 MCG/ML INJ SOLN 253317 CYANOCOBALAM IN Inactive MAGNESIUM GLUCONATE 250 MG TABS 1 tab tid 4 MAGNESIUM GLUCONATE 250 MG TABS 318532 MAGNESIUM GLUCONATE Inactive LOMOTIL 2.5-0.025 MG TABS 1 tab by mouth prn 4 LOMOTIL 2.5- 0.025 MG TABS 2002458 DIPHENOXYLATE-ATROPINE Inactive FLORANEX PACK 1 pack three times daily, for bowel health FLORANEX PACK LACTOBACILLUS Inactive IRON 325 (65 FE) MG TABS 1 every other day IRON 325 (65 FE) MG TABS 006005 FERROUS SULFATE Inactive FLAGYL 500 MG TABS 1 pill by mouth three times daily, for diarrh ea FLAGYL 500 MG TABS 647391 METRONIDAZOLE Inactive BACTRIM DS 800-160 MG TABS 1 pill by mouth twice daily, for UTI BACTRIM DS 800-160 MG TABS 084668 SULFAMETHOXAZOLE-TRIM ETHOPRIM Inactive Advance Directives Directive Description [...] Panel - Chemistry sodium, serum 142 mmol/L 726-515 4515/04/20 carbon dioxide, venous blood 34.7 mmol/L 21.0-32 .0 potassium, serum 3.5 mmol/L 3.5-5.2 chloride, serum 102 mmol/L 98-107 blood glucose 102 mg/dL 65-110 urea nitrogen, blood 24 mg/dL 7-18 creatinine, serum 1.37 mg/dL 0.55-1.30 alanine aminotransferase (SGPT), serum 72 U/L -78 aspartate aminotransferase (SGOT), serum 44 U/L 15-37 calcium, serum 9.0 mg/dL 8.5-10.1 bilirubin, serum, total 0.50 mg/dL 0.00-1.00 sodium, serum 138 mmol/L 524-001 1212/10/23 carbon dioxide, venous blood 29.5 mmol/L 21.0-32 [...] 11 .6-14.8 platelet count 189 10^3/MM^3 10*3/mm3 860-703 3942/04/20 leukocyte count, blood 5.9 10^3/MM^3 10*3/mm3 4.6-10.2 [...] 1.24 m[iU]/mL 0.36-3.74 cholesterol, serum 227 mg/dL 862-186 4700/10/23 triglyceride, serum, fasting 144 mg/dL 30-200 HDL cholesterol, serum 60 mg/dL 32-96 LDL cholesterol, serum 138 mg/dL 0-130 Lab Report: Lipid Panel, MICROALBUMIN, T hyroid Stimulating Hormone (L) - Lab microalbumin, urine 10 0-19 Encounters Code Encounter Date Provider Facility CPT-78506 Level 4 Est. Patient 17:00:48 CDT Kylie Lund [facility] CPT-83280 Level 3 Est. Patient 13:15:54 CDT Kylie Lund [facility] CPT-11736 Level 3 Est. Patient 09:10:11 CDT Kylie Lund [facility] CPT-98521 Level 4 Est. Patient 12:08:30 FORM STRIPPER Hope cohn MD PhD [facility] CPT-80441 Level 4 Est. Patient 19:08:42 FORM STRIPPER Hope cohn MD PhD [facility] CPT-57468 Level 4 Est. Patient 20:04:51 CDT Hope cohn MD PhD [facility] CPT-09470 Level 3 New Patient 01:46:11 FORM STRIPPER Hope landers MD PhD [facility] Procedures Code Procedure Name Date Entry Date Standard Desc ription CPT-45836 First Vx - Ix admin for Medicare patients 13:27:08 CDT CPT-68316 Fluzone High-Dose Intramuscular Suspension 11/26 13:27:08 CDT CPT-G0438 Initial Annual Wellness Exam 14:19:57 CD T CPT-G0009 Administration of Pneumococcal Vaccine 9 11:36:25 CDT CPT-77697 Prevnar 13 Intramuscular Suspension 1 1:36:25 CDT CPT-32795 Prevnar 13 Intramuscular Suspension 1 0:40:58 CDT CPT-J0897 Prolia 60 mg 10:37:16 CDT CPT-11667 Abx/Therapy Injection 10:37:16 CDT CPT-J0897 Prolia 60 mg 16:09:34 FORM STRIPPER CPT-J0897 Prolia 60 mg 11:10:35 FORM STRIPPER CPT-00443 Abx/Therapy Injection 11:10:35 FORM STRIPPER CPT-000 Give Appropriate Flu Vaccine 17:01:15 FORM STRIPPER 2 CPT-86229 Fluzone High Dose (65+) 15:03:08 FORM STRIPPER 02/15 CPT-24165 Immunization Single Admin 15:03:08 FORM STRIPPER 2014 CPT-OV Office Visit 15:58:06 CDT CPT-J0897 Prolia 60 mg 08:45:38 CDT CPT-83509 Abx/Therapy Injection 08:45:38 CDT CPT-J3420 Vitamin B12 1000mcg (Cyanocobalamin) 09:26:20 FORM STRIPPER CPT-41073 Abx/Therapy Injection 09:26:20 FORM STRIPPER CPT-J3420 Vitamin B12 1000mcg (Cyanocobalamin) 09:44:40 FORM STRIPPER CPT-72854 Abx/Therapy Injection 09:44:40 FORM STRIPPER CPT-J3420 Vitamin B12 1000mcg (Cyanocobalamin) 09:15:54 FORM STRIPPER CPT-47031 Abx/Therapy Injection 09:15:54 FORM STRIPPER CPT-J3420 Vitamin B12 1000mcg (Cyanocobalamin) 09:46:44 FORM STRIPPER CPT-59300 Abx/Therapy Injection 09:46:44 FORM STRIPPER CPT-J3420 Vitamin B12 1000mcg (Cyanocobalamin) 09:47:34 FORM STRIPPER CPT-03017 Abx/Therapy Injection 09:47:34 FORM STRIPPER CPT-J3420 Vitamin B12 1000mcg (Cyanocobalamin) 14:35:50 FORM STRIPPER CPT-J3420 Vitamin B12 1000mcg (Cyanocobalamin) 09:25:05 FORM STRIPPER CPT-65400 Abx/Therapy Injection 09:25:05 FORM STRIPPER CPT-G0008 Administration of Influenza Virus Vaccine 13:36:47 CDT CPT-96861 Fluzone High-Dose Intramuscular Suspension 11/15 13:36:47 CDT CPT-J0897 Prolia 60 mg 08:50:41 CDT CPT-65981 Abx/Therapy Injection 08:50:41 CDT CPT-01197 Bone Density 12:06:12 CDT CPT-01864 Bone Density 08:54:40 CDT CPT-OV Office Visit 15:37:02 CDT CPT-07677 Postop F/U Visit 15:47:49 CDT CPT-14613 Postop F/U Visit 15:21:02 CDT CPT-TCMH Transitional Care Mgmt-High 07:52:27 CDT 20 20/06/01 CPT-06311 Venipuncture Draw Fee 13:51:18 CDT CPT-79502 Venipuncture Draw Fee 10:14:55 FORM STRIPPER CPT-62769 Venipuncture Draw Fee 13:39:45 FORM STRIPPER CPT-OV Office Visit 15:11:22 FORM STRIPPER CPT-64388 Venipuncture Draw Fee 09:20:49 FORM STRIPPER CPT-49665 Venipuncture Draw Fee 16:52:15 FORM STRIPPER CPT-80482 Venipuncture Draw Fee 10:37:24 FORM STRIPPER CPT-88952 Venipuncture Draw Fee 08:21:21 FORM STRIPPER CPT-20120 Venipuncture Draw Fee 08:30:20 FORM STRIPPER CPT-65575 Venipuncture Draw Fee 14:53:21 FORM STRIPPER CPT-57368 Venipuncture Draw Fee 09:40:56 FORM STRIPPER CPT-39458 Venipuncture Draw Fee 10:30:47 FORM STRIPPER CPT-48030 Venipuncture Draw Fee 10:46:17 FORM STRIPPER CPT-46868 Venipuncture Draw Fee 11:12:45 FORM STRIPPER CPT-38521 Venipuncture Draw Fee 09:53:33 FORM STRIPPER CPT-88138 Venipuncture Draw Fee 11:53:51 FORM STRIPPER CPT-60807 Venipuncture Draw Fee 10:33:50 FORM STRIPPER CPT-90720 Venipuncture Draw Fee 10:05:01 FORM STRIPPER CPT-42086 Venipuncture Draw Fee 14:32:52 FORM STRIPPER CPT-09685 Venipuncture Draw Fee 09:46:13 FORM STRIPPER CPT-56260 Venipuncture Draw Fee 11:34:27 FORM STRIPPER CPT-41239 Venipuncture Draw Fee 13:17:16 FORM STRIPPER CPT-16757 Venipuncture Draw Fee 12:05:39 CDT CPT-75413 Venipuncture Draw Fee 12:49:12 CDT CPT-87495 Venipuncture Draw Fee 12:37:18 CDT CPT-99869 Venipuncture Draw Fee 10:57:11 CDT CPT-62340 Venipuncture Draw Fee 13:47:40 CDT CPT-73495 Venipuncture Draw Fee 10:02:17 CDT CPT-26804 TB Tubersol 17:32:32 CDT CPT-OV Office Visit 16:21:53 CDT CPT-OV Office Visit 15:49:22 CDT CPT-OV Office Visit 17:16:31 CDT CPT-OV Office Visit 10:43:31 CDT
--- OUTSIDE RECORDS SUMMARY | 2019-02-09 12:36 | XMS REPORT | Clinical Summary ---
Author Author Renaldo, Florecita Munoz Organization [facility] Address Unknown Phone Unavailable Allergies, Adverse Reactions, [...] PhD Hyperpotassemia GERD 530.81 Resolved Kylie Yokum SHOWER SCREEN INSTALLER Esophageal reflux Health maintenance exam V70.0 Resolved Adolfo Yates MD Routine general medical examination at a health care facility Anemia 285.9 Resolved Kylie Yanet SHOWER SCREEN INSTALLER Anemia, unspecified Personal history of malignant neoplasm of large intestine V10.05 Active Adam Yates MD Personal history of malignant neoplasm of large intestine Hypomagnesemia 275.2 Resolved Kylie Yanet SHOWER SCREEN INSTALLER Disorders of magnesium metabolism Weakness 780.79 Resolved [...] Sebaceous cyst, scalp 706.2 Resolved Kylie Yokum SHOWER SCREEN INSTALLER Sebaceous cyst Cervical lymphadenopathy, anterior, left 785.6 Resolv ed Kylie Yokum SHOWER SCREEN INSTALLER Enlargement of lymph nodes Need for prophylactic vaccination and inoculation against in fluenza V04.81 Resolved Adam Yates MD Need for prophylactic vaccination and inoculation against influenza Preventive health care V70.0 Active Kylie Yokum SHOWER SCREEN INSTALLER Routine general medical examination at a health care facility Thyroid nodule, left 241.0 Active Kylie Yokum A PRN Nontoxic uninodular goiter Screening mammogram V76.12 Active Kylie Yokum AP RN Other screening mammogram Mandy 706.2 Resolved Kylie Yokum SHOWER SCREEN INSTALLER Sebaceous cyst Colon cancer, ascending 153.6 Resolved Kylie Yok um SHOWER SCREEN INSTALLER Malignant neoplasm of ascending colon Foot pain, left 729.5 Active 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 Pain in limb Splinter 919.6 Active Kylie Yokum SHOWER SCREEN INSTALLER Superficial foreign body (splinter) of other, multiple, and unspecified sites, without major open wound and without mention of infection Rash 782.1 Active Kylie Yokum SHOWER SCREEN INSTALLER R aurora and other nonspecific skin eruption ABDOMINAL PAIN, RIGHT LOWER QUADRANT ICD-789.03 Inactive Kina Joshua SHOWER SCREEN INSTALLER ADENOCARCINOMA, COLON, 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 Dick Yates MD ABDOMINAL PAIN, GENERALIZED ICD-789.07 Inactive Hope Benavidez MD PhD FEVER UNSPECIFIED ICD-780.60 Inactive Hope cohn MD PhD UNSPECIFIED VENOUS INSUFFICIENCY ICD-459.81 [place] ctive Adam Yates MD ADENOCARCINOMA, 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 Inac tive Hope Benavidez MD PhD Hyperkalemia ICD-276.7 Inactive Hope Benavidez MD PhD GERD ICD-530.81 Inactive Kylie Yanet SHOWER SCREEN INSTALLER 2015 Health maintenance exam ICD-V70.0 Bam Yates MD Anemia ICD-285.9 Inactive Kylie Holt SHOWER SCREEN INSTALLER 07/24 Hypomagnesemia ICD-275.2 Inactive Kylie Yokum SHOWER SCREEN INSTALLER Weakness ICD-780.79 Inactive Hope Benavidez MD P [...] Sebaceous cyst, scalp ICD-706.2 Inactive Tracy Holt SHOWER SCREEN INSTALLER Cervical lymphadenopathy, anterior, left ICD-785.6 Inactive Kylie Holt SHOWER SCREEN INSTALLER Need for prophylactic vaccination and inoculation against in fluenza ICD-V04.81 Inactive Adam Yates MD Mandy ICD-706.2 Inactive Kylie Holt AMY 07/20 Colon cancer, ascending ICD-153.6 Inactive Gabbi Escalonagabbioliver AMY Medication List Medication Instructions Start Date Stop Date Generic Name NDC Status Provider Patient Instruction VOLTAREN 1 % TRANSDERMAL GEL apply q 6-8 hour to left arm as needed for pain DICLOFENAC SODIUM 94363610108 Active Kylie Holt AMY Active COQ10 100 MG ORAL CAPSULE 1 daily COENZYME Q10 453149 31742 Active LETY Nation Active VITAMIN D3 2000 UNIT ORAL CAPSULE Melaleuca-One daily CHOLECALCIFEROL 48710868549 Active Kylie Holt APRN Active PROBIOTIC DAILY ORAL CAPSULE Take one daily PROBIO TIC PRODUCT 61247566774 Active Kylie Holt AMY Active IRON 325 (65 Fe) MG ORAL TABLET 1 every other day FERROUS SULFATE 35894096357 No Longer Active Kylie Holt AMY Active FLORANEX ORAL PACKET 1 pack three times daily, for bowel health LACTOBACILLUS 32259438538 No Longer Active Kylie Holt AMY Active LOMOTIL 2.5-0.025 MG ORAL TABLET 1 tab by mouth prn 23/10/23 DIPHENOXYLATE-ATROPINE 87066814986 No Longer Active Kylie Holt SHOWER SCREEN INSTALLER Active MAGNESIUM GLUCONATE 250 MG ORAL TABLET 1 tab tid 23/10/23 MAGNESIUM GLUCONATE 48940106937 No Longer Active Kylie Holt SHOWER SCREEN INSTALLER Active CYANOCOBALAMIN 1000 MCG/ML INJECTION SOLUTION 1 injection ev ruben 2 weeks CYANOCOBALAMIN 44943161433 No Longer Active Kylie boyd SHOWER SCREEN INSTALLER Active ATENOLOL 25 MG ORAL TABLET 1/2 pill by mouth daily, fo r headaches, blood pressure ATENOLOL 44638909888 Active Kylie Holt SHOWER SCREEN INSTALLER Active PROPRANOLOL HCL 80 MG ORAL TABLET 1 tab tue. and thur. PROPRANOLOL HCL 53222054903 No Longer Active Hope Benavidez MD PhD A ctive VITAMIN D3 4000 IU 1 tab 3 times daily VITAMIN D3 4000 IU No Longer Active Hope Benavidez MD PhD Active BACTRIM DS 800-160 MG ORAL TABLET 1 pill by mouth twice claudio y, for UTI SULFAMETHOXAZOLE-TRIMETHOPRIM 63520671259 No Longer Active Hope Benavidez MD PhD Active PROLIA 60 MG/ML SUBCUTANEOUS SOLUTION 1 shot every 6 months for osteoprosis DENOSUMAB 64797003119 Active Hope Benavidez MD PhD Active CALCIUM + D + K 750-500-40 MG-UNT-MCG ORAL TABLET 1 tab by m [facility] twice daily CALCIUM-VITAMIN D-VITAMIN K 70583717355 Active Hope valdez MD PhD Active DAILY VALUE MULTIVITAMIN ORAL TABLET 1 tab by mouth twice daily 201 05/16/14 MULTIPLE VITAMIN 35762663131 Active Hope Benavidez MD PhD Acti ve FISH OIL 306 MG CAPS 1 tab by mouth three times daily OMEGA-3 FATTY ACIDS 26409689881 Active Hope Benavidez MD PhD Active LUTEIN 10 MG ORAL TABLET 1 tab daily LUTEIN 05586023 408 Active Hope Benavidez MD PhD Active TRIAMTERENE-HCTZ 37.5-25 MG ORAL TABLET 1 tab by mouth daily 10/22 TRIAMTERENE-HCTZ 88221442495 Active Kylie Holt SHOWER SCREEN INSTALLER Active CYCLOBENZAPRINE HCL 10 MG ORAL TABLET 1 tablet by mout h three times daily as needed for headaches CYCLOBENZAPRINE HCL 30345498030 No Longer Active Adam Yates MD Active OMEPRAZOLE 20 MG ORAL CAPSULE DELAYED RELEASE 1 tablet by mo [facility] daily for GERD OMEPRAZOLE 10079299605 No Longer Active Adam Yates MD Active ZOFRAN 8 MG ORAL TABLET 1 tab by mouth every 12 hours prn 4 ONDANSETRON HCL 29932665954 No Longer Active Adam Yates MD Active PHENADOZ 25 MG RECTAL SUPPOSITORY 1 every 4 hrs. PRN 2 PROMETHAZINE HCL 87068018118 No Longer Active Adam Yates MD A ctive POTASSIUM CHLORIDE 20 MEQ ORAL PACKET by mouth twice a day prn 2 POTASSIUM CHLORIDE 45578534084 No Longer Active Adam Carpenter MD Active PROMETHAZINE HCL 25 MG ORAL TABLET 1 Q. 4 hr. PRN PROMETHAZINE HCL 40908480135 No Longer Active Adam Yates MD Active INNOPRAN XL 120 MG ORAL CAPSULE EXTENDED RELEASE 24 HO UR Take one by mouth daily PROPRANOLOL HCL SR BEADS 92011525599 No Longer Active Adam Yates MD Active FLAGYL 500 MG ORAL TABLET 1 pill by mouth three times daily, for diarrhea METRONIDAZOLE 09968967809 No Longer Active Hope landers MD PhD Active DYAZIDE 37.5-25 MG ORAL CAPSULE 1 qd TRIA MTERENE-HCTZ 55870690086 No Longer Active Hope Benavidez MD PhD Active PROZAC 20 MG ORAL CAPSULE 1 q d FLUOXETINE HCL 36545583275 No Longer Active Hope Benavidez MD PhD Active SIMVASTATIN 40 MG ORAL TABLET 1 qd SIMVAS TATIN 45227339733 No Longer Active Adam Yates MD Active MELOXICAM 15 MG ORAL TABLET 1 qd MELOXICAM 68333461906 No Longer Active Adam Yates MD Active IMODIUM A-D 2 MG ORAL TABLET 2 onset at diarrhea and prn. LOPERAMIDE HCL 63954850133 Active Hope Benavidez MD PhD Active EXCEDRIN EXTRA STRENGTH 250-250-65 MG ORAL TABLET 1-2 q6h TN N headache [id number] 96830452834 Active Hope Benaviedz MD PhD Active FLAGYL 500 MG ORAL TABLET 1 qid METRONIDAZOL E 72892741791 No Longer Active Adam Yates MD Active LEVAQUIN 750 MG ORAL TABLET 1 qd LEVOFLOXAC IN 88642172932 No Longer Active Adam Yates MD Active ADULT ASPIRIN LOW STRENGTH 81 MG ORAL TABLET DISINTEGRATING 1 qd ASPIRIN 21914285190 Active Hope Benavidez MD PhD Active LEVAQUIN 750 MG ORAL TABLET 1 qd LEVAQUIN 750 MG ORAL TABLET 506374 LEVOFLOXACIN Inactive FLAGYL 500 MG ORAL TABLET 1 qid FLAGYL 500 MG ORAL TABLET 752993 METRONIDAZOLE Inactive MELOXICAM 15 MG ORAL TABLET 1 qd MELOXICAM 15 MG ORAL TABLET 590549 MELOXICAM Inactive SIMVASTATIN 40 MG ORAL TABLET 1 qd SIMVASTATIN 40 MG ORAL TABLET 348883 SIMVASTATIN Inactive PROZAC 20 MG ORAL CAPSULE 1 q d PROZAC 20 MG ORAL CAPSULE 755619 FLUOXETINE HCL Inactive DYAZIDE 37.5-25 MG ORAL CAPSULE 1 qd 5 DYAZIDE 37.5-25 MG ORAL CAPSULE 850917 TRIAMTERENE-HCTZ Inactive INNOPRAN XL 120 MG ORAL CAPSULE EXTENDED RELEASE 24 HO UR Take one by mouth daily INNOPRAN XL 120 MG ORAL CAPSULE EXTENDED RELEASE 24 HOUR PROPRANOLOL HCL SR BEADS Inactive PROMETHAZINE HCL 25 MG ORAL TABLET 1 Q. 4 hr. PRN 2013 PROMETHAZINE HCL 25 MG ORAL TABLET 924939 PROMETHAZINE HCL Inactive POTASSIUM CHLORIDE 20 MEQ ORAL PACKET by mouth twice a day prn 2 POTASSIUM CHLORIDE 20 MEQ ORAL PACKET 6075767 POTASSIUM CHLORIDE Inactive PHENADOZ 25 MG RECTAL SUPPOSITORY 1 every 4 hrs. PRN 2 PHENADOZ 25 MG RECTAL SUPPOSITORY 717318 PROMETHAZINE HCL Inactive ZOFRAN 8 MG ORAL TABLET 1 tab by mouth every 12 hours prn 4 ZOFRAN 8 MG ORAL TABLET 664334 ONDANSETRON HCL Inactive OMEPRAZOLE 20 MG ORAL CAPSULE DELAYED RELEASE 1 tablet by mo uth daily for GERD OMEPRAZOLE 20 MG ORAL CAPSULE DELAYED RELEASE 19 8051 OMEPRAZOLE Inactive CYCLOBENZAPRINE HCL 10 MG ORAL TABLET 1 tablet by mout h three times daily as needed for headaches CYCLOBENZAPRINE HCL 10 MG ORAL TABLET 680114 CYCLOBENZAPRINE HCL Inactive VITAMIN D3 4000 IU 1 tab 3 times daily VITAMIN D3 4000 IU Inactive PROPRANOLOL HCL 80 MG ORAL TABLET 1 tab tue. and thur. PROPRANOLOL HCL 80 MG ORAL TABLET 053987 PROPRANOLOL HCL Inacti ve CYANOCOBALAMIN 1000 MCG/ML INJECTION SOLUTION 1 injection ev ruben 2 weeks CYANOCOBALAMIN 1000 MCG/ML INJECTION SOLUTION 30 9594 CYANOCOBALAMIN Inactive MAGNESIUM GLUCONATE 250 MG ORAL TABLET 1 tab tid 20 23/10/23 MAGNESIUM GLUCONATE 250 MG ORAL TABLET 878418 MAGNESIUM GLUCONATE Inactive LOMOTIL 2.5-0.025 MG ORAL TABLET 1 tab by mouth prn 20 23/10/23 LOMOTIL 2.5-0.025 MG ORAL TABLET 6522268 DIPHENOXYLATE-ATROPINE Inac tive FLORANEX ORAL PACKET 1 pack three times daily, for bowel health FLORANEX ORAL PACKET LACTOBACILLUS Inactive IRON 325 (65 Fe) MG ORAL TABLET 1 every other day 2015 IRON 325 (65 Fe) MG ORAL TABLET 763345 FERROUS SULFATE Inactive FLAGYL 500 MG ORAL TABLET 1 pill by mouth three times daily, for diarrhea FLAGYL 500 MG ORAL TABLET 357632 METRONIDAZOLE I nactive BACTRIM DS 800-160 MG ORAL TABLET 1 pill by mouth twice claudio y, for UTI BACTRIM DS 800-160 MG ORAL TABLET 462204 SULFAMETHOXAZOLE-TRIMETHOPRIM Inactive Advance Directives Directive Description Start [...] 11 .0-15.0 platelet count 157 THOUSAND/UL 10*3/mm3 057-535 4839/04/20 mean platelet volume 8.9 fL 7.5-12.5 Lab Report: [facility] - Serology carcinoembryonic antigen 0.9 ng/mL Encounters Code Encounter Date Provider Facility CPT-71035 Level 2 Est. Patient 14:27:16 IN TUBE CONVERSION TECHNICIAN Kylie Lund [facility] CPT-64379 Level 3 Est. Patient 17:54:48 CDT Kylie Lund [facility] CPT-50775 Level 3 Est. Patient 16:26:30 CDT Kina blackmon [facility] CPT-00522 Level 3 New Patient 16:22:01 IN TUBE CONVERSION TECHNICIAN Adam Yates MD [facility] CPT-45035 Level 4 Est. Patient 17:00:48 CDT Kylie Lund [facility] CPT-79452 Level 3 Est. Patient 13:15:54 CDT Kylie Lund [facility] CPT-78820 Level 3 Est. Patient 09:10:11 CDT Kylie Lund [facility] CPT-78482 Level 4 Est. Patient 12:08:30 IN TUBE CONVERSION TECHNICIAN Hope cohn MD PhD [facility] CPT-64732 Level 4 Est. Patient 19:08:42 IN TUBE CONVERSION TECHNICIAN Hope cohn MD PhD [facility] CPT-20009 Level 4 Est. Patient 20:04:51 CDT Hope cohn MD PhD [facility] CPT-07962 Level 3 New Patient 01:46:11 IN TUBE CONVERSION TECHNICIAN Hope landers MD PhD [facility] Procedures Code Procedure Name Date Entry Date Standard Desc ription CPT-65181 First Vx - Ix admin for Medicare patients 11:19:30 CDT CPT-29684 Fluzone High-Dose Intramuscular Suspension 12/07 11:19:30 CDT CPT-J0897 Prolia 60 mg 14:55:42 CDT CPT-31516 Abx/Therapy Injection 14:55:42 CDT CPT-59302 Bone Density - XRAY USE ONLY 10:27:12 CDT 2 CPT-G0439 [facility] Annual Wellness Exam 17:54:53 CDT CPT-08139 Foot, left, comp min 3V - XRAY USE ONLY 12:22:49 CDT CPT-G0009 Administration of Pneumococcal Vaccine 3 12:18:00 CDT CPT-68052 Pneumovax 23 Injection Injectable 25 MCG /0.5ML 12:18:00 CDT CPT-J0897 Prolia 60 mg 14:14:16 IN TUBE CONVERSION TECHNICIAN CPT-42383 Abx/Therapy Injection 14:14:15 IN TUBE CONVERSION TECHNICIAN CPT-70661 Lipid - LAB USE ONLY 10:01:52 IN TUBE CONVERSION TECHNICIAN 2 CPT-56086 Calcium - LAB USE ONLY 10:01:51 IN TUBE CONVERSION TECHNICIAN CPT-21793 Venipuncture Draw Fee 10:01:51 IN TUBE CONVERSION TECHNICIAN CPT-LR Lesion Removal 16:22:01 IN TUBE CONVERSION TECHNICIAN CPT-88223 TSH - LAB USE ONLY 14:26:02 CDT CPT-11496 CMP - LAB USE ONLY 14:26:01 CDT CPT-44639 CBC with Diff - LAB USE ONLY 14:26:01 CDT 2 CPT-33604 Venipuncture Draw Fee 14:26:01 CDT CPT-45188 First Vx - Ix admin for Medicare patients 13:27:08 CDT CPT-12853 Fluzone High-Dose Intramuscular Suspension 11/26 13:27:08 CDT CPT-G0438 Initial Annual Wellness Exam 14:19:57 CD T CPT-G0009 Administration of Pneumococcal Vaccine 9 11:36:25 CDT CPT-79523 Prevnar 13 Intramuscular Suspension 1 1:36:25 CDT CPT-17100 Prevnar 13 Intramuscular Suspension 1 0:40:58 CDT CPT-J0897 Prolia 60 mg 10:37:16 CDT CPT-11794 Abx/Therapy Injection 10:37:16 CDT CPT-J0897 Prolia 60 mg 16:09:34 IN TUBE CONVERSION TECHNICIAN CPT-J0897 Prolia 60 mg 11:10:35 IN TUBE CONVERSION TECHNICIAN CPT-77578 Abx/Therapy Injection 11:10:35 IN TUBE CONVERSION TECHNICIAN CPT-000 Give Appropriate Flu Vaccine 17:01:15 IN TUBE CONVERSION TECHNICIAN 2 CPT-08960 Fluzone High Dose (65+) 15:03:08 IN TUBE CONVERSION TECHNICIAN 02/15 CPT-04817 Immunization Single Admin 15:03:08 IN TUBE CONVERSION TECHNICIAN 2014 CPT-OV Office Visit 15:58:06 CDT CPT-J0897 Prolia 60 mg 08:45:38 CDT CPT-15662 Abx/Therapy Injection 08:45:38 CDT CPT-J3420 Vitamin B12 1000mcg (Cyanocobalamin) 09:26:20 IN TUBE CONVERSION TECHNICIAN CPT-90014 Abx/Therapy Injection 09:26:20 IN TUBE CONVERSION TECHNICIAN CPT-J3420 Vitamin B12 1000mcg (Cyanocobalamin) 09:44:40 IN TUBE CONVERSION TECHNICIAN CPT-14664 Abx/Therapy Injection 09:44:40 IN TUBE CONVERSION TECHNICIAN CPT-J3420 Vitamin B12 1000mcg (Cyanocobalamin) 09:15:54 IN TUBE CONVERSION TECHNICIAN CPT-09199 Abx/Therapy Injection 09:15:54 IN TUBE CONVERSION TECHNICIAN CPT-J3420 Vitamin B12 1000mcg (Cyanocobalamin) 09:46:44 IN TUBE CONVERSION TECHNICIAN CPT-35035 Abx/Therapy Injection 09:46:44 IN TUBE CONVERSION TECHNICIAN CPT-J3420 Vitamin B12 1000mcg (Cyanocobalamin) 09:47:34 IN TUBE CONVERSION TECHNICIAN CPT-08608 Abx/Therapy Injection 09:47:34 IN TUBE CONVERSION TECHNICIAN CPT-J3420 Vitamin B12 1000mcg (Cyanocobalamin) 14:35:50 IN TUBE CONVERSION TECHNICIAN CPT-J3420 Vitamin B12 1000mcg (Cyanocobalamin) 09:25:05 IN TUBE CONVERSION TECHNICIAN CPT-91768 Abx/Therapy Injection 09:25:05 IN TUBE CONVERSION TECHNICIAN CPT-G0008 Administration of Influenza Virus Vaccine 13:36:47 CDT CPT-05068 Fluzone High-Dose Intramuscular Suspension 11/15 13:36:47 CDT CPT-J0897 Prolia 60 mg 08:50:41 CDT CPT-84589 Abx/Therapy Injection 08:50:41 CDT CPT-55752 Bone Density 12:06:12 CDT CPT-47657 Bone Density 08:54:40 CDT CPT-OV Office Visit 15:37:02 CDT CPT-98834 Postop F/U Visit 15:47:49 CDT CPT-68321 Postop F/U Visit 15:21:02 CDT CPT-[facility] Transitional Care Mgmt-High 07:52:27 CDT 20 20/06/01 CPT-29032 Venipuncture Draw Fee 13:51:18 CDT CPT-05104 Venipuncture Draw Fee 10:14:55 IN TUBE CONVERSION TECHNICIAN CPT-32896 Venipuncture Draw Fee 13:39:45 IN TUBE CONVERSION TECHNICIAN CPT-OV Office Visit 15:11:22 IN TUBE CONVERSION TECHNICIAN CPT-49425 Venipuncture Draw Fee 09:20:49 IN TUBE CONVERSION TECHNICIAN CPT-68358 Venipuncture Draw Fee 16:52:15 IN TUBE CONVERSION TECHNICIAN CPT-09017 Venipuncture Draw Fee 10:37:24 IN TUBE CONVERSION TECHNICIAN CPT-85196 Venipuncture Draw Fee 08:21:21 IN TUBE CONVERSION TECHNICIAN CPT-25621 Venipuncture Draw Fee 08:30:20 IN TUBE CONVERSION TECHNICIAN CPT-43089 Venipuncture Draw Fee 14:53:21 IN TUBE CONVERSION TECHNICIAN CPT-48458 Venipuncture Draw Fee 09:40:56 IN TUBE CONVERSION TECHNICIAN CPT-22879 Venipuncture Draw Fee 10:30:47 IN TUBE CONVERSION TECHNICIAN CPT-08236 Venipuncture Draw Fee 10:46:17 IN TUBE CONVERSION TECHNICIAN CPT-40858 Venipuncture Draw Fee 11:12:45 IN TUBE CONVERSION TECHNICIAN CPT-22247 Venipuncture Draw Fee 09:53:33 IN TUBE CONVERSION TECHNICIAN CPT-84944 Venipuncture Draw Fee 11:53:51 IN TUBE CONVERSION TECHNICIAN CPT-94159 Venipuncture Draw Fee 10:33:50 IN TUBE CONVERSION TECHNICIAN CPT-11592 Venipuncture Draw Fee 10:05:01 IN TUBE CONVERSION TECHNICIAN CPT-62659 Venipuncture Draw Fee 14:32:52 IN TUBE CONVERSION TECHNICIAN CPT-96436 Venipuncture Draw Fee 09:46:13 IN TUBE CONVERSION TECHNICIAN CPT-65929 Venipuncture Draw Fee 11:34:27 IN TUBE CONVERSION TECHNICIAN CPT-12076 Venipuncture Draw Fee 13:17:16 IN TUBE CONVERSION TECHNICIAN CPT-20902 Venipuncture Draw Fee 12:05:39 CDT CPT-90951 Venipuncture Draw Fee 12:49:12 CDT CPT-19477 Venipuncture Draw Fee 12:37:18 CDT CPT-42967 Venipuncture Draw Fee 10:57:11 CDT CPT-31490 Venipuncture Draw Fee 13:47:40 CDT CPT-59104 Venipuncture Draw Fee 10:02:17 CDT CPT-41612 TB Tubersol 17:32:32 CDT CPT-OV Office Visit 16:21:53 CDT CPT-OV Office Visit 15:49:22 CDT CPT-OV Office Visit 17:16:31 CDT CPT-OV Office Visit 10:43:31 CDT
--- OUTSIDE RECORDS SUMMARY | 2019-02-09 12:36 | XMS REPORT | Clinical Summary ---
Author Author Renaldo, Florecita Munoz Organization [facility] Address Unknown Phone Unavailable Allergies, Adverse [...] colon Sebaceous cyst, scalp 706.2 Resolved Kylieshubham Holt [employer]IPPER Sebaceous cyst Cervical lymphadenopathy, anterior, left 785.6 Active Kylie Holt [employer] Enlargement of lymph nodes Need for prophylactic vaccination and inoculation against in fluenza V04.81 Active Citlaly Marmolejoford RMA Need for prophylactic vaccination and inoculation against influenza ADENOCARCINOMA, COLON, 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 Dick Yates MD ABDOMINAL PAIN, RIGHT LOWER QUADRANT ICD-789.03 Inactive Kina Tres [employer]IP[employer] UNSPECIFIED VENOUS INSUFFICIENCY ICD-459.81 Elda ctive Adam Yates MD ADENOCARCINOMA, 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 Inac tive Hope Benavidez MD PhD Hyperkalemia ICD-276.7 Inactive Hope Benavidez MD PhD Health maintenance exam ICD-V70.0 Bam Yates MD ABDOMINAL PAIN, GENERALIZED ICD-789.07 Inactive [...] Colon cancer ICD-153.9 Inactive Adam luna MD Sebaceous cyst, scalp ICD-706.2 Inactive Tracy Holt [employer] Medication List Medication Instructions Start Date Stop Date Generic Name NDC Status Provider Patient Instruction LOMOTIL 2.5-0.025 MG TABS 1 tab by mouth prn 4 DIPHENOXYLATE-ATROPINE 29862540348 No Longer Active Kylie Escalonakum [employer]DER STRIPPER Active MAGNESIUM GLUCONATE 250 MG TABS 1 tab tid 4 MAGNESIUM GLUCONATE 52165862354 No Longer Active Kylie Yokum [employer]DER [employer]IPPER Active CYANOCOBALAMIN 1000 MCG/ML INJ SOLN 1 injection every 2 weeks 20 20/01/03 CYANOCOBALAMIN 73374641056 No Longer Active Kylie Lundum [employer]IPPER Active ATENOLOL 25 MG ORAL TABS 1/2 pill by mouth daily, for headac hes, blood pressure ATENOLOL 83815969662 Active Courtney Zaman [employer]DER [employer]IPPER Active PROPRANOLOL HCL 80 MG TABS 1 tab tue. and thur. 04/10 PROPRANOLOL HCL 51326599076 No Longer Active Hope Benavidez MD PhD A ctive IRON 325 (65 FE) MG TABS 1 every other day FERROUS SULFATE 75982666029 Active Hope Benavidez MD PhD Active VITAMIN D3 4000 IU 1 tab 3 times daily VITAMIN D3 4000 IU No Longer Active Hope Benavidez MD PhD Active BACTRIM DS 800-160 MG TABS 1 pill by mouth twice daily, for UTI SULFAMETHOXAZOLE-TRIMETHOPRIM 23383097545 No Longer Active Lisa Benavidez MD PhD Active PROLIA 60 MG/ML SOLN 1 shot every 6 months for osteoprosis DENOSUMAB 81230108437 Active Hope Benavidez MD PhD Active CALCIUM + D + K 750-500-40 MG-UNT-MCG TABS 1 tab by mouth tw ice daily CALCIUM-VITAMIN D-VITAMIN K 56686891140 Active Hope landers MD PhD Active DAILY VALUE MULTIVITAMIN TABS 1 tab by mouth twice daily MULTIPLE VITAMIN 14751439382 Active Hope Benavidez MD PhD Active FISH OIL 306 MG CAPS 1 tab by mouth three times daily OMEGA-3 FATTY ACIDS 58529935660 Active Hope Benavidez MD PhD Active LUTEIN 10 MG TABS 1 tab daily LUTEIN 08123515900 Act cash Hope Benavidez MD PhD Active FLORANEX PACK 1 pack three times daily, for bowel health LACTOBACILLUS 99738603754 Active Hope Benavidez MD PhD Active TRIAMTERENE-HCTZ 37.5-25 MG TABS 1 tab by mouth daily TRIAMTERENE-HCTZ 25027786630 Active Kylie Holt [employer] Active CYCLOBENZAPRINE HCL 10 MG TABS 1 tablet by mouth three times daily as needed for headaches CYCLOBENZAPRINE HCL 28321286510 No Longe r Active Adam Yates MD Active OMEPRAZOLE 20 MG CPDR 1 tablet by mouth daily for GERD OMEPRAZOLE 60231308261 No Longer Active Adam Yates MD A ctive ZOFRAN 8 MG TABS 1 tab by mouth every 12 hours prn 201 05/16/09 ONDANSETRON HCL 25859471464 No Longer Active Adam Yates MD Active PHENADOZ 25 MG SUPP 1 every 4 hrs. PRN PROMETHA ZINE HCL 36832600881 No Longer Active Adam Yates MD Active POTASSIUM CHLORIDE 20 MEQ PACK by mouth twice a day prn POTASSIUM CHLORIDE 18211742671 No Longer Active Adam Yates MD Active PROMETHAZINE HCL 25 MG TABS 1 Q. 4 hr. PRN PROM ETHAZINE HCL 07796584636 No Longer Active Adam Yates MD Active INNOPRAN XL 120 MG [id number] Take one by mouth daily 2 PROPRANOLOL HCL SR BEADS 50517169203 No Longer Active Adam Yates MD A ctive FLAGYL 500 MG TABS 1 pill by mouth three times daily, for diarrh ea METRONIDAZOLE 67560203495 No Longer Active Hope Benavidez MD PhD Active DYAZIDE 37.5-25 MG CAPS 1 qd TRIAMTERENE-HC TZ 86868041711 No Longer Active Hope Benavidez MD PhD Active PROZAC 20 MG CAPS 1 q d FLUOXETINE HCL 74476 790244 No Longer Active Hope Benavidez MD PhD Active SIMVASTATIN 40 MG TABS 1 qd SIMVASTATIN 004 82746774 No Longer Active Adam Yates MD Active MELOXICAM 15 MG TABS 1 qd MELOXICAM 1503204 2567 No Longer Active Adam Yates MD Active IMODIUM A-D 2 MG TABS 2 onset at diarrhea and prn. LOPERAMIDE HCL 53191608087 Active Hope Benavidez MD PhD Active EXCEDRIN EXTRA STRENGTH 250-250-65 MG TABS 1-2 q6h PRN headache 201 04/16/21 [id number] 08357392820 Active Hope Benavidez MD PhD Active FLAGYL 500 MG TABS 1 qid METRONIDAZOLE 60652 472326 No Longer Active Adam Yates MD Active LEVAQUIN 750 MG TABS 1 qd LEVOFLOXACIN 5486 3222096 No Longer Active Adam Yates MD Active ADULT ASPIRIN LOW STRENGTH 81 MG TBDP 1 qd A SPIRIN 23935000981 Active Hope Benavidez MD PhD Active LEVAQUIN 750 MG TABS 1 qd LEVAQUIN 750 MG T ABS 219224 LEVOFLOXACIN Inactive FLAGYL 500 MG TABS 1 qid FLAGYL 500 MG TABS 298144 METRONIDAZOLE Inactive MELOXICAM 15 MG TABS 1 qd MELOXICAM 15 MG T ABS 561573 MELOXICAM Inactive SIMVASTATIN 40 MG TABS 1 qd SIMVASTATIN 40 MG TABS 083347 SIMVASTATIN Inactive PROZAC 20 MG CAPS 1 q d PROZAC 20 MG CAPS 31 0385 FLUOXETINE HCL Inactive DYAZIDE 37.5-25 MG CAPS 1 qd DYAZIDE 37.5 -25 MG CAPS 543987 TRIAMTERENE-HCTZ Inactive INNOPRAN XL 120 MG [id number] Take one by mouth daily 2 INNOPRAN XL 120 MG [id number] PROPRANOLOL HCL SR BEADS Inactive PROMETHAZINE HCL 25 MG TABS 1 Q. 4 hr. PRN PROMETHAZINE HCL 25 MG TABS 279944 PROMETHAZINE HCL Inactive POTASSIUM CHLORIDE 20 MEQ PACK by mouth twice a day prn POTASSIUM CHLORIDE 20 MEQ PACK 552756 POTASSIUM CHLORIDE Inactive PHENADOZ 25 MG SUPP 1 every 4 hrs. PRN PHENADOZ 2 5 MG SUPP 161182 PROMETHAZINE HCL Inactive ZOFRAN 8 MG TABS 1 tab by mouth every 12 hours prn 201 05/16/09 ZOFRAN 8 MG TABS 718877 ONDANSETRON HCL Inactive OMEPRAZOLE 20 MG CPDR 1 tablet by mouth daily for GERD OMEPRAZOLE 20 MG CPDR 698183 OMEPRAZOLE Inactive CYCLOBENZAPRINE HCL 10 MG TABS 1 tablet by mouth three times daily as needed for headaches CYCLOBENZAPRINE HCL 10 MG TABS 386925 CYCLOBENZAPRINE HCL Inactive VITAMIN D3 4000 IU 1 tab 3 times daily VITAMIN D3 4000 IU Inactive PROPRANOLOL HCL 80 MG TABS 1 tab tue. and thur. 04/10 PROPRANOLOL HCL 80 MG TABS 931040 PROPRANOLOL HCL Inactive CYANOCOBALAMIN 1000 MCG/ML INJ SOLN 1 injection every 2 weeks 20 20/01/03 CYANOCOBALAMIN 1000 MCG/ML INJ SOLN 586245 CYANOCOBALAM IN Inactive MAGNESIUM GLUCONATE 250 MG TABS 1 tab tid 4 MAGNESIUM GLUCONATE 250 MG TABS 889987 MAGNESIUM GLUCONATE Inactive LOMOTIL 2.5-0.025 MG TABS 1 tab by mouth prn 4 LOMOTIL 2.5- 0.025 MG TABS 8044423 DIPHENOXYLATE-ATROPINE Inactive FLAGYL 500 MG TABS 1 pill by mouth three times daily, for diarrh ea FLAGYL 500 MG TABS 870966 METRONIDAZOLE Inactive BACTRIM DS 800-160 MG TABS 1 pill by mouth twice daily, for UTI BACTRIM DS 800-160 MG TABS 726310 SULFAMETHOXAZOLE-TRIM ETHOPRIM Inactive Advance Directives Directive Description [...] Panel - Chemistry sodium, serum 142 mmol/L 456-802 2241/04/20 carbon dioxide, venous blood 34.7 mmol/L 21.0-32 .0 potassium, serum 3.5 mmol/L 3.5-5.2 chloride, serum 102 mmol/L 98-107 blood glucose 102 mg/dL 65-110 urea nitrogen, blood 24 mg/dL 7-18 creatinine, serum 1.37 mg/dL 0.55-1.30 alanine aminotransferase (SGPT), serum 72 U/L 12-78 aspartate aminotransferase (SGOT), serum 44 U/L 15-37 calcium, serum 9.0 mg/dL 8.5-10.1 bilirubin, serum, total 0.50 mg/dL 0.00-1.00 sodium, serum 138 mmol/L 255-956 2769/10/23 carbon dioxide, venous blood 29.5 mmol/L 21.0-32 [...] 11 .6-14.8 platelet count 204 10^3/MM^3 10*3/mm3 834-232 2881/10/23 mean corpuscular hemoglobin concentration, RBC 34.5 G/DL % 31.8-35.4 mean corpuscular hemoglobin, RBC 33.9 pg 27. 0-31.2 mean corpuscular volume, RBC 98 fL 80-97 hematocrit, blood 43.1 % 36.0-46.0 hemoglobin, blood 14.9 g/dL 12.0-16.0 lymphocytes as percent of blood leukocytes 34.5 % 20.5-51.1 monocytes as percent of blood leukocytes 7.4 % 1.7-9.3 neutrophils as percent of blood leukocytes 54.5 % 42.2-75.2 leukocyte count, blood 5.5 10^3/MM^3 10*3/mm3 4.6-10.2 red blood cell distribution width 12.9 % 11 .6-14.8 platelet count 189 10^3/MM^3 10*3/mm3 142-424 Lab Report: CEA - Serology carcinoembryonic antigen 1.1 ng/mL carcinoembryonic antigen 0.9 ng/mL Lab Report: Lipid Panel, MICROALBUMIN, T hyroid Stimulating Hormone (L) - Chemistry albumin/creatinine ratio, urine < 30 mg/g mg/g{creat} 0-2 9 TSH 1.24 m[iU]/mL 0.36-3.74 cholesterol, serum 227 mg/dL 751-729 4259/10/23 triglyceride, serum, fasting 144 mg/dL 30-200 HDL cholesterol, serum 60 mg/dL 32-96 LDL cholesterol, serum 138 mg/dL 0-130 Lab Report: Lipid Panel, MICROALBUMIN, T hyroid Stimulating Hormone (L) - Lab microalbumin, urine 10 0-19 Encounters Code Encounter Date Provider Facility CPT-89737 Level 3 Est. Patient 13:15:54 CDT Kylie Lund [facility] CPT-97700 Level 3 Est. Patient 09:10:11 CDT Kylie Lund [facility] CPT-64515 Level 4 Est. Patient 12:08:30 [employer] INSPECTOR REPAIRER Hope cohn MD PhD [facility] CPT-58939 Level 4 Est. Patient 19:08:42 [employer]ST[employer] INSPECTOR REPAIRER Hope cohn MD PhD [facility] CPT-70036 Level 4 Est. Patient 20:04:51 CDT Hope cohn MD PhD [facility] CPT-75114 Level 3 New Patient 01:46:11 [employer]ST[employer] INSPECTOR REPAIRER Hope landers MD PhD [facility] Procedures Code Procedure Name Date Entry Date Standard Desc ription CPT-J0897 Prolia 60 mg 16:09:34 [employer] INSPECTOR REPAIRER CPT-J0897 Prolia 60 mg 11:10:35 [employer] INSPECTOR REPAIRER CPT-25533 Abx/Therapy Injection 11:10:35 [employer]STONE INSPECTOR REPAIRER CPT-000 Give Appropriate Flu Vaccine 17:01:15 [employer]ST[employer] INSPECTOR REPAIRER 2 CPT-71572 Fluzone High Dose (65+) 15:03:08 [employer]ANDST[employer] INSPECTOR REPAIRER 02/15 CPT-59619 Immunization Single Admin 15:03:08 [employer] INSPECTOR REPAIRER 2014 CPT-OV Office Visit 15:58:06 CDT CPT-J0897 Prolia 60 mg 08:45:38 CDT CPT-22167 Abx/Therapy Injection 08:45:38 CDT CPT-J3420 Vitamin B12 1000mcg (Cyanocobalamin) 09:26:20 [employer] INSPECTOR REPAIRER CPT-92573 Abx/Therapy Injection 09:26:20 SANDSTONE INSPECTOR REPAIRER CPT-J3420 Vitamin B12 1000mcg (Cyanocobalamin) 09:44:40 [employer]ANDSTONE INSPECTOR REPAIRER CPT-87687 Abx/Therapy Injection 09:44:40 SANDSTONE INSPECTOR REPAIRER CPT-J3420 Vitamin B12 1000mcg (Cyanocobalamin) 09:15:54 [employer]ANDSTONE INSPECTOR REPAIRER CPT-16912 Abx/Therapy Injection 09:15:54 SANDSTONE INSPECTOR REPAIRER CPT-J3420 Vitamin B12 1000mcg (Cyanocobalamin) 09:46:44 SANDSTONE INSPECTOR REPAIRER CPT-70687 Abx/Therapy Injection 09:46:44 SANDSTONE INSPECTOR REPAIRER CPT-J3420 Vitamin B12 1000mcg (Cyanocobalamin) 09:47:34 SANDSTONE INSPECTOR REPAIRER CPT-47153 Abx/Therapy Injection 09:47:34 SANDSTONE INSPECTOR REPAIRER CPT-J3420 Vitamin B12 1000mcg (Cyanocobalamin) 14:35:50 SANDSTONE INSPECTOR REPAIRER CPT-J3420 Vitamin B12 1000mcg (Cyanocobalamin) 09:25:05 [employer]ANDSTONE INSPECTOR REPAIRER CPT-92773 Abx/Therapy Injection 09:25:05 [employer]ANDSTONE INSPECTOR REPAIRER CPT-G0008 Administration of Influenza Virus Vaccine 13:36:47 CDT CPT-73852 Fluzone High-Dose Intramuscular Suspension 11/15 13:36:47 CDT CPT-J0897 Prolia 60 mg 08:50:41 CDT CPT-30247 Abx/Therapy Injection 08:50:41 CDT CPT-19046 Bone Density 12:06:12 CDT CPT-56858 Bone Density 08:54:40 CDT CPT-OV Office Visit 15:37:02 CDT CPT-89903 Postop F/U Visit 15:47:49 CDT CPT-26367 Postop F/U Visit 15:21:02 CDT CPT-[facility] Transitional Care Mgmt-High 07:52:27 CDT 20 20/06/01 CPT-05695 Venipuncture Draw Fee 13:51:18 CDT CPT-65500 Venipuncture Draw Fee 10:14:55 [employer] INSPECTOR REPAIRER CPT-12740 Venipuncture Draw Fee 13:39:45 [employer]ANDSTONE INSPECTOR REPAIRER CPT-OV Office Visit 15:11:22 [employer]ANDSTONE INSPECTOR REPAIRER CPT-28610 Venipuncture Draw Fee 09:20:49 [employer]ANDSTONE INSPECTOR REPAIRER CPT-37849 Venipuncture Draw Fee 16:52:15 [employer]ANDSTONE INSPECTOR REPAIRER CPT-83423 Venipuncture Draw Fee 10:37:24 SANDSTONE INSPECTOR REPAIRER CPT-41028 Venipuncture Draw Fee 08:21:21 SANDSTONE INSPECTOR REPAIRER CPT-05952 Venipuncture Draw Fee 08:30:20 SANDSTONE INSPECTOR REPAIRER CPT-18682 Venipuncture Draw Fee 14:53:21 SANDSTONE INSPECTOR REPAIRER CPT-70020 Venipuncture Draw Fee 09:40:56 [employer]ANDSTONE INSPECTOR REPAIRER CPT-88868 Venipuncture Draw Fee 10:30:47 SANDSTONE INSPECTOR REPAIRER CPT-98887 Venipuncture Draw Fee 10:46:17 SANDSTONE INSPECTOR REPAIRER CPT-04885 Venipuncture Draw Fee 11:12:45 SANDSTONE INSPECTOR REPAIRER CPT-10546 Venipuncture Draw Fee 09:53:33 SANDSTONE INSPECTOR REPAIRER CPT-89699 Venipuncture Draw Fee 11:53:51 SANDSTONE INSPECTOR REPAIRER CPT-35252 Venipuncture Draw Fee 10:33:50 SANDSTONE INSPECTOR REPAIRER CPT-41208 Venipuncture Draw Fee 10:05:01 SANDSTONE INSPECTOR REPAIRER CPT-32992 Venipuncture Draw Fee 14:32:52 SANDSTONE INSPECTOR REPAIRER CPT-24413 Venipuncture Draw Fee 09:46:13 SANDSTONE INSPECTOR REPAIRER CPT-86338 Venipuncture Draw Fee 11:34:27 SANDSTONE INSPECTOR REPAIRER CPT-45447 Venipuncture Draw Fee 13:17:16 SANDSTONE INSPECTOR REPAIRER CPT-18107 Venipuncture Draw Fee 12:05:39 CDT CPT-37967 Venipuncture Draw Fee 12:49:12 CDT CPT-55576 Venipuncture Draw Fee 12:37:18 CDT CPT-23438 Venipuncture Draw Fee 10:57:11 CDT CPT-86143 Venipuncture Draw Fee 13:47:40 CDT CPT-79487 Venipuncture Draw Fee 10:02:17 CDT CPT-69039 TB Tubersol 17:32:32 CDT CPT-OV Office Visit 16:21:53 CDT CPT-OV Office Visit 15:49:22 CDT CPT-OV Office Visit 17:16:31 CDT CPT-OV Office Visit 10:43:31 CDT
--- OUTSIDE RECORDS SUMMARY | 2019-02-09 12:37 | XMS REPORT | Clinical Summary ---
Author Author Florecita Macario Organization [facility] Address Unknown Phone Unavailable Allergies, [...] cohn MD PhD UNSPECIFIED VENOUS INSUFFICIENCY ICD-459.81 [place] ctive Adam Yates MD ADENOCARCINOMA, ASCENDING COLON [...] tab tue. and thur. 04/10 PROPRANOLOL HCL 21023641432 No Longer Active Hope Benavidez MD PhD A ctive IRON 325 (65 FE) MG TABS 1 every other day FERROUS SULFATE 15989534035 Active Hope Benavidez MD PhD Active VITAMIN D3 4000 IU 1 tab 3 times daily VITAMIN D3 4000 IU No Longer Active Hope Benavidez MD PhD Active CYANOCOBALAMIN 1000 MCG/ML INJ SOLN 1 injection every 2 weeks 01/09 CYANOCOBALAMIN 92110687881 Active Laura Elder Active BACTRIM DS 800-160 MG TABS 1 pill by mouth twice daily, for UTI SULFAMETHOXAZOLE-TRIMETHOPRIM 14581171657 No Longer Active A attila Benavidez MD PhD Active PROLIA 60 MG/ML SOLN 1 shot every 6 months for osteoprosis DENOSUMAB 20811995014 Active Hope Benavidez MD PhD Active CALCIUM + D + K 750-500-40 MG-UNT-MCG TABS 1 tab by mouth tw ice daily CALCIUM-VITAMIN D-VITAMIN K 31636564149 Active Hope landers MD PhD Active DAILY VALUE MULTIVITAMIN TABS 1 tab by mouth twice daily MULTIPLE VITAMIN 89103849609 Active Hope Benavidez MD PhD Active FISH OIL 306 MG CAPS 1 tab by mouth three times daily OMEGA-3 FATTY ACIDS 14099198390 Active Hope Benavidez MD PhD Active LUTEIN 10 MG TABS 1 tab daily LUTEIN 06154491786 Act cash Hope Benavidez MD PhD Active FLORANEX PACK 1 pack three times daily, for bowel health LACTOBACILLUS 89771684018 Active Hope Benavidez MD PhD Active LOMOTIL 2.5-0.025 MG TABS 1 tab by mouth prn DIPHENOXYLATE-ATROPINE 52913052536 Active Hope Benavidez MD PhD Active TRIAMTERENE-HCTZ 37.5-25 MG TABS 1 tab by mouth daily TRIAMTERENE-HCTZ 06242125846 Active Hope Benavidez MD PhD Acti ve MAGNESIUM GLUCONATE 250 MG TABS 1 tab tid MAGN ESIUM GLUCONATE 39587805703 Active Adam Yates MD Active ATENOLOL 50 MG TABS 1/2 tab q other day m-w-f ATE NOLOL 39620134962 Active Hope Benavidez MD PhD Active CYCLOBENZAPRINE HCL 10 MG TABS 1 tablet by mouth three times daily as needed for headaches CYCLOBENZAPRINE HCL 54073993230 No Longe r Active Adam Yates MD Active OMEPRAZOLE 20 MG CPDR 1 tablet by mouth daily for GERD OMEPRAZOLE 21783419700 No Longer Active Adam Yates MD A ctive ZOFRAN 8 MG TABS 1 tab by mouth every 12 hours prn 201 05/16/09 ONDANSETRON HCL 45778874438 No Longer Active Adam Yates MD Active PHENADOZ 25 MG SUPP 1 every 4 hrs. PRN PROMETHA ZINE HCL 46714312556 No Longer Active Adam Yates MD Active POTASSIUM CHLORIDE 20 MEQ PACK by mouth twice a day prn POTASSIUM CHLORIDE 88865061370 No Longer Active Adam Yates MD Active PROMETHAZINE HCL 25 MG TABS 1 Q. 4 hr. PRN PROM ETHAZINE HCL 36728413779 No Longer Active Adam Yates MD Active INNOPRAN XL 120 MG AL33A-BPP Take one by mouth daily 2 PROPRANOLOL HCL SR BEADS 74848247643 No Longer Active Adam Yates MD A ctive FLAGYL 500 MG TABS 1 pill by mouth three times daily, for diarrh ea METRONIDAZOLE 56705824041 No Longer Active Hope Benavidez MD PhD Active DYAZIDE 37.5-25 MG CAPS 1 qd TRIAMTERENE-HC TZ 23830508739 No Longer Active Hope Benavidez MD PhD Active PROZAC 20 MG CAPS 1 q d FLUOXETINE HCL 38696 190927 No Longer Active Hope Benavidez MD PhD Active SIMVASTATIN 40 MG TABS 1 qd SIMVASTATIN 004 93031944 No Longer Active Adam Yates MD Active MELOXICAM 15 MG TABS 1 qd MELOXICAM 1991572 2744 No Longer Active Adam Yates MD Active IMODIUM A-D 2 MG TABS 2 onset at diarrhea and prn. LOPERAMIDE HCL 73162887983 Active Hope Benavidez MD PhD Active EXCEDRIN EXTRA STRENGTH 250-250-65 MG TABS 1-2 q6h PRN headache 201 04/16/21 [id number] 76552322801 Active Hope Benavidez MD PhD Active FLAGYL 500 MG TABS 1 qid METRONIDAZOLE 25473 281989 No Longer Active Adam Yates MD Active LEVAQUIN 750 MG TABS 1 qd LEVOFLOXACIN 5486 4000585 No Longer Active Adam Yates MD Active ADULT ASPIRIN LOW STRENGTH 81 MG TBDP 1 qd A SPIRIN 46223747245 Active Hope Benavidez MD PhD Active LEVAQUIN 750 MG TABS 1 qd LEVAQUIN 750 MG T ABS 835008 LEVOFLOXACIN Inactive FLAGYL 500 MG TABS 1 qid FLAGYL 500 MG TABS 678602 METRONIDAZOLE Inactive MELOXICAM 15 MG TABS 1 qd MELOXICAM 15 MG T ABS 749239 MELOXICAM Inactive SIMVASTATIN 40 MG TABS 1 qd SIMVASTATIN 40 MG TABS 311182 SIMVASTATIN Inactive PROZAC 20 MG CAPS 1 q d PROZAC 20 MG CAPS 31 0385 FLUOXETINE HCL Inactive DYAZIDE 37.5-25 MG CAPS 1 qd DYAZIDE 37.5 -25 MG CAPS 087119 TRIAMTERENE-HCTZ Inactive INNOPRAN XL 120 MG [id number] Take one by mouth daily 2 INNOPRAN XL 120 MG [id number]-[id number] PROPRANOLOL HCL SR BEADS Inactive PROMETHAZINE HCL 25 MG TABS 1 Q. 4 hr. PRN PROMETHAZINE HCL 25 MG TABS 682848 PROMETHAZINE HCL Inactive POTASSIUM CHLORIDE 20 MEQ PACK by mouth twice a day prn POTASSIUM CHLORIDE 20 MEQ PACK 620033 POTASSIUM CHLORIDE Inactive PHENADOZ 25 MG SUPP 1 every 4 hrs. PRN PHENADOZ 2 5 MG SUPP 284768 PROMETHAZINE HCL Inactive ZOFRAN 8 MG TABS 1 tab by mouth every 12 hours prn 201 05/16/09 ZOFRAN 8 MG TABS 667513 ONDANSETRON HCL Inactive OMEPRAZOLE 20 MG CPDR 1 tablet by mouth daily for GERD OMEPRAZOLE 20 MG CPDR 183788 OMEPRAZOLE Inactive CYCLOBENZAPRINE HCL 10 MG TABS 1 tablet by mouth three times daily as needed for headaches CYCLOBENZAPRINE HCL 10 MG TABS 650232 CYCLOBENZAPRINE HCL Inactive VITAMIN D3 4000 IU 1 tab 3 times daily VITAMIN D3 4000 IU Inactive PROPRANOLOL HCL 80 MG TABS 1 tab tue. and thur. 04/10 PROPRANOLOL HCL 80 MG TABS 696035 PROPRANOLOL HCL Inactive FLAGYL 500 MG TABS 1 pill by mouth three times daily, for diarrh ea FLAGYL 500 MG TABS 237481 METRONIDAZOLE Inactive BACTRIM DS 800-160 MG TABS [...] Range Description Chart Maintenance: labs added to [facility] - Chemistry magnesium, serum 2.0 mg/dL Chart Maintenance: Outside labs entered on [employer] - Chemistry sodium, serum 139 mmol/L potassium, serum 3.9 mmol/L blood glucose 85 mg/dL creatinine, serum 1.26 mg/dL aspartate aminotransferase (SGOT), serum 33 U/L alanine aminotransferase (SGPT), serum 44 U/L alkaline phosphatase, serum 127 U/L Chart Maintenance: Outside labs entered on [employer] - Hematology leukocyte count, blood 4.6 10*3/mm3 hemoglobin, blood 13.6 g/dL platelet count 162 10*3/mm3 Lab Report: Basic Metabolic Panel - Chem istry sodium, serum 136 mmol/L 058-058 7900/05/02 potassium, serum 4.1 mmol/L 3.5-5.2 chloride, serum [...] 1.16 mg/dL Lab Report: [facility] - Chemistry sodium, serum 137 mmol/L potassium, serum 3.8 mmol/L blood glucose 79 mg/dL creatinine, serum 1.02 mg/dL magnesium, serum 1.2 mg/dL Lab Report: [facility] W/ [facility] - Hematology leukocyte count, blood 8.7 10*3/mm3 hemoglobin, blood 10.8 g/dL platelet count 319 10*3/mm3 Lab Report: CBC W/DIFF, Comp. Metabolic Panel - Chemistry sodium, serum 138 mmol/L 403-902 0884/08/14 potassium, serum 4.0 mmol/L 3.5-5.2 chloride, serum [...] 0.40 mg/dL 0.00-1.00 sodium, serum 145 mmol/L 841-755 8358/02/02 potassium, serum 4.2 mmol/L 3.5-5.2 chloride, serum [...] 11 .6-14.8 platelet count 155 10^3/MM^3 10*3/mm3 884-966 2267/08/14 leukocyte count, blood 5.8 10^3/MM^3 10*3/mm3 4.6-10.2 [...] - Chem istry sodium, serum 143 mmol/L 864-732 3063/04/15 potassium, serum 3.4 mmol/L 3.5-5.2 chloride, serum 101 mmol/L 98-107 carbon dioxide, venous blood 35.4 mmol/L 21.0-32 .0 blood glucose 92 mg/dL 65-110 urea nitrogen, blood 29 mg/dL 7-18 creatinine, serum 1.30 mg/dL 0.60-1.30 alanine aminotransferase (SGPT), serum 62 U/L 12-78 aspartate aminotransferase (SGOT), serum 48 U/L 15-37 calcium, serum 8.8 mg/dL 8.5-10.1 bilirubin, serum, total 0.40 mg/dL 0.00-1.00 Lab Report: Hemoglobin - Hematology hemoglobin, blood 11.2 g/dL 12.0-16.0 Lab Report: Lipid Panel - Chemistry cholesterol, serum 209 mg/dL 598-741 3584/09/11 triglyceride, serum, fasting 113 mg/dL 30-200 HDL [...] semiquantitative 7.0 5.0-8.5 Lab Report: VITAMIN D, 25-HYDROXY/38359, MAGNESIUM/622 - Chemistry vitamin D 25-hydroxy, serum 41 ng/mL 30-100 Encounters Code Encounter Date Provider Facility CPT-09645 Level 4 Est. Patient 12:08:30 ACCOUNTING MACHINE SERVICER Hope cohn MD PhD [facility] CPT-65251 Level 4 Est. Patient 19:08:42 ACCOUNTING MACHINE SERVICER Hope cohn MD PhD [facility] CPT-92296 Level 4 Est. Patient 20:04:51 CDT Hope cohn MD PhD [facility] CPT-65583 Level 3 New Patient 01:46:11 ACCOUNTING MACHINE SERVICER oHpe landers MD PhD [facility] Procedures Code Procedure Name Date Entry Date Standard Desc ription CPT-J3420 Vitamin B12 1000mcg (Cyanocobalamin) 09:26:20 ACCOUNTING MACHINE SERVICER CPT-42781 Abx/Therapy Injection 09:26:20 ACCOUNTING MACHINE SERVICER CPT-J3420 Vitamin B12 1000mcg (Cyanocobalamin) 09:44:40 ACCOUNTING MACHINE SERVICER CPT-98144 Abx/Therapy Injection 09:44:40 ACCOUNTING MACHINE SERVICER CPT-J3420 Vitamin B12 1000mcg (Cyanocobalamin) 09:15:54 ACCOUNTING MACHINE SERVICER CPT-18996 Abx/Therapy Injection 09:15:54 ACCOUNTING MACHINE SERVICER CPT-J3420 Vitamin B12 1000mcg (Cyanocobalamin) 09:46:44 ACCOUNTING MACHINE SERVICER CPT-55175 Abx/Therapy Injection 09:46:44 ACCOUNTING MACHINE SERVICER CPT-J3420 Vitamin B12 1000mcg (Cyanocobalamin) 09:47:34 ACCOUNTING MACHINE SERVICER CPT-94277 Abx/Therapy Injection 09:47:34 ACCOUNTING MACHINE SERVICER CPT-J3420 Vitamin B12 1000mcg (Cyanocobalamin) 14:35:50 ACCOUNTING MACHINE SERVICER CPT-J3420 Vitamin B12 1000mcg (Cyanocobalamin) 09:25:05 ACCOUNTING MACHINE SERVICER CPT-43935 Abx/Therapy Injection 09:25:05 ACCOUNTING MACHINE SERVICER CPT-G0008 Administration of Influenza Virus Vaccine 13:36:47 CDT CPT-44375 Fluzone High-Dose Intramuscular Suspension 11/15 13:36:47 CDT CPT-J0897 Prolia 60 mg 08:50:41 CDT CPT-98901 Abx/Therapy Injection 08:50:41 CDT CPT-90384 Bone Density 12:06:12 CDT CPT-17844 Bone Density 08:54:40 CDT CPT-OV Office Visit 15:37:02 CDT CPT-33890 Postop F/U Visit 15:47:49 CDT CPT-38209 Postop F/U Visit 15:21:02 CDT [facility]PT-[facility] Transitional Care Mgmt-High 07:52:27 CDT 20 20/06/01 CPT-81510 Venipuncture Draw Fee 13:51:18 CDT CPT-50123 Venipuncture Draw Fee 10:14:55 ACCOUNTING MACHINE SERVICER CPT-04764 Venipuncture Draw Fee 13:39:45 ACCOUNTING MACHINE SERVICER CPT-OV Office Visit 15:11:22 ACCOUNTING MACHINE SERVICER CPT-65858 Venipuncture Draw Fee 09:20:49 ACCOUNTING MACHINE SERVICER CPT-81647 Venipuncture Draw Fee 16:52:15 ACCOUNTING MACHINE SERVICER CPT-93698 Venipuncture Draw Fee 10:37:24 ACCOUNTING MACHINE SERVICER CPT-08558 Venipuncture Draw Fee 08:21:21 ACCOUNTING MACHINE SERVICER CPT-36318 Venipuncture Draw Fee 08:30:20 ACCOUNTING MACHINE SERVICER CPT-71746 Venipuncture Draw Fee 14:53:21 ACCOUNTING MACHINE SERVICER CPT-68445 Venipuncture Draw Fee 09:40:56 ACCOUNTING MACHINE SERVICER CPT-25065 Venipuncture Draw Fee 10:30:47 ACCOUNTING MACHINE SERVICER CPT-32149 Venipuncture Draw Fee 10:46:17 ACCOUNTING MACHINE SERVICER CPT-79759 Venipuncture Draw Fee 11:12:45 ACCOUNTING MACHINE SERVICER CPT-35512 Venipuncture Draw Fee 09:53:33 ACCOUNTING MACHINE SERVICER CPT-11060 Venipuncture Draw Fee 11:53:51 ACCOUNTING MACHINE SERVICER CPT-00156 Venipuncture Draw Fee 10:33:50 ACCOUNTING MACHINE SERVICER CPT-22164 Venipuncture Draw Fee 10:05:01 ACCOUNTING MACHINE SERVICER CPT-00565 Venipuncture Draw Fee 14:32:52 ACCOUNTING MACHINE SERVICER CPT-45609 Venipuncture Draw Fee 09:46:13 ACCOUNTING MACHINE SERVICER CPT-23060 Venipuncture Draw Fee 11:34:27 ACCOUNTING MACHINE SERVICER CPT-64723 Venipuncture Draw Fee 13:17:16 ACCOUNTING MACHINE SERVICER CPT-67502 Venipuncture Draw Fee 12:05:39 CDT CPT-36659 Venipuncture Draw Fee 12:49:12 CDT CPT-00020 Venipuncture Draw Fee 12:37:18 CDT CPT-93082 Venipuncture Draw Fee 10:57:11 CDT CPT-34424 Venipuncture Draw Fee 13:47:40 CDT CPT-36027 Venipuncture Draw Fee 10:02:17 CDT CPT-32328 TB Tubersol 17:32:32 CDT CPT-OV Office Visit 16:21:53 CDT CPT-OV Office Visit 15:49:22 CDT CPT-OV Office Visit 17:16:31 CDT CPT-OV Office Visit 10:43:31 CDT
--- OUTSIDE RECORDS SUMMARY | 2019-02-09 12:37 | XMS REPORT | Clinical Summary ---
Author Author Renaldo, Florecita Munoz Organization [facility] [employer] Address Unknown Phone Unavailable Allergies, Adverse Reactions, [...] PhD Hyperpotassemia GERD 530.81 Resolved Kylie Yokum THIRD COOK Esophageal reflux Health maintenance exam V70.0 Resolved Adolfo Yates MD Routine general medical examination at a health care facility Anemia 285.9 Resolved Kylie Holt [employer]IRD COOK Anemia, unspecified Personal history of malignant neoplasm [...] Sebaceous cyst, scalp 706.2 Resolved Kylie Holt THIRD COOK Sebaceous cyst Cervical lymphadenopathy, anterior, left 785.6 Resolv ed Kylie Holt [employer]IRD COOK Enlargement of lymph nodes Need for prophylactic vaccination and inoculation against in fluenza V04.81 Resolved Adam Yates MD Need for prophylactic vaccination and inoculation against influenza Preventive health care V70.0 Active Kylie Holt THIRD COOK Routine general medical examination at a health care facility Thyroid nodule, left 241.0 Active Kylie Holt A PRN Nontoxic uninodular goiter Screening mammogram V76.12 Active Kylie Holt AP RN Other screening mammogram Mandy 706.2 Active Adam Yates MD Sebaceous cyst Colon cancer, ascending 153.6 Active Kelsy F aux RMA Malignant neoplasm of ascending colon ABDOMINAL PAIN, RIGHT LOWER QUADRANT ICD-789.03 Inactive Kina Joshua THIRD COOK ADENOCARCINOMA, COLON, 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 Dick Yates MD FEVER UNSPECIFIED ICD-780.60 Inactive Hope cohn MD PhD UNSPECIFIED VENOUS INSUFFICIENCY ICD-459.81 [place] ctive Adam Yates MD ADENOCARCINOMA, 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 Inac tive Hope Benavidez MD PhD Hyperkalemia ICD-276.7 Inactive Hope Benavidez MD PhD GERD ICD-530.81 Inactive Kylie Holt THIRD COOK 2015 Health maintenance exam ICD-V70.0 Bam Yates MD Anemia ICD-285.9 Inactive Kylie Holt THIRD COOK 07/24 ABDOMINAL PAIN, GENERALIZED ICD-789.07 Inactive Hope Benavidez MD PhD Weakness ICD-780.79 [...] lymphadenopathy, anterior, left ICD-785.6 Inactive Kylie Holt THIRD COOK Need for prophylactic vaccination and inoculation against in fluenza ICD-V04.81 Bam Yates MD Sebaceous cyst, scalp ICD-706.2 Inactive Tracy Holt THIRD COOK Medication List Medication Instructions Start Date Stop Date Generic Name NDC Status Provider Patient Instruction COQ10 100 MG ORAL CAPS 1 daily COENZYME Q10 013016265 20 Active FrenchglenLETY Haley Active VITAMIN D3 2000 UNIT ORAL CAPS Melaleuca-One daily CHOLECALCIFEROL 90862282825 Active Kylie Lundum THIRD COOK Active PROBIOTIC DAILY ORAL CAPS Take one daily PROBIOTIC PRODUCT 63406088936 Active Kylie Lundum THIRD COOK Active IRON 325 (65 FE) MG TABS 1 every other day FERR OUS SULFATE 34391444908 No Longer Active Kylie Escalonakum THIRD COOK Active FLORANEX PACK 1 pack three times daily, for bowel health LACTOBACILLUS 61475041082 No Longer Active Kylie Lundum THIRD COOK Active LOMOTIL 2.5-0.025 MG TABS 1 tab by mouth prn 4 DIPHENOXYLATE-ATROPINE 11383948700 No Longer Active Kylie Lundum THIRD COOK Active MAGNESIUM GLUCONATE 250 MG TABS 1 tab tid 4 MAGNESIUM GLUCONATE 08941266937 No Longer Active Kylie Lundum THIRD COOK Active CYANOCOBALAMIN 1000 MCG/ML INJ SOLN 1 injection every 2 weeks 20 20/01/03 CYANOCOBALAMIN 71520495482 No Longer Active Kylie Lundum THIRD COOK Active ATENOLOL 25 MG ORAL TABS 1/2 pill by mouth daily, for headac hes, blood pressure ATENOLOL 74924632019 Active Kylie Lundum [employer]IRD COOK Active PROPRANOLOL HCL 80 MG TABS 1 tab tue. and thur. 04/10 PROPRANOLOL HCL 92456596850 No Longer Active Hope Benavidez MD PhD A ctive VITAMIN D3 4000 IU 1 tab 3 times daily VITAMIN D3 4000 IU No Longer Active Hope Benavidez MD PhD Active BACTRIM DS 800-160 MG TABS 1 pill by mouth twice daily, for UTI SULFAMETHOXAZOLE-TRIMETHOPRIM 31411458372 No Longer Active A attila Benavidez MD PhD Active PROLIA 60 MG/ML SOLN 1 shot every 6 months for osteoprosis DENOSUMAB 77802142973 Active Hope Benavidez MD PhD Active CALCIUM + D + K 750-500-40 MG-UNT-MCG TABS 1 tab by mouth tw ice daily CALCIUM-VITAMIN D-VITAMIN K 22573014350 Active Hope landers MD PhD Active DAILY VALUE MULTIVITAMIN TABS 1 tab by mouth twice daily MULTIPLE VITAMIN 22391726576 Active Hope Benavidez MD PhD Active FISH OIL 306 MG CAPS 1 tab by mouth three times daily OMEGA-3 FATTY ACIDS 64152918821 Active Hope Benavidez MD PhD Active LUTEIN 10 MG TABS 1 tab daily LUTEIN 17343206126 Act cash Hope Benavidez MD PhD Active TRIAMTERENE-HCTZ 37.5-25 MG TABS 1 tab by mouth daily TRIAMTERENE-HCTZ 01314345883 Active Kylie Holt THIRD COOK Active CYCLOBENZAPRINE HCL 10 MG TABS 1 tablet by mouth three times daily as needed for headaches CYCLOBENZAPRINE HCL 75219347771 No Longe r Active Adam Yates MD Active OMEPRAZOLE 20 MG CPDR 1 tablet by mouth daily for GERD OMEPRAZOLE 39108156168 No Longer Active Adam Yates MD A ctive ZOFRAN 8 MG TABS 1 tab by mouth every 12 hours prn 201 05/16/09 ONDANSETRON HCL 78683132110 No Longer Active Adam Yates MD Active PHENADOZ 25 MG SUPP 1 every 4 hrs. PRN PROMETHA ZINE HCL 65908701007 No Longer Active Adam Yates MD Active POTASSIUM CHLORIDE 20 MEQ PACK by mouth twice a day prn POTASSIUM CHLORIDE 87021622734 No Longer Active Adam Yates MD Active PROMETHAZINE HCL 25 MG TABS 1 Q. 4 hr. PRN PROM ETHAZINE HCL 46226577238 No Longer Active Adam Yates MD Active INNOPRAN XL 120 MG [id number] Take one by mouth daily 2 PROPRANOLOL HCL SR BEADS 90810578688 No Longer Active Adam Yates MD A ctive FLAGYL 500 MG TABS 1 pill by mouth three times daily, for diarrh ea METRONIDAZOLE 91904290866 No Longer Active Hope Benavidez MD PhD Active DYAZIDE 37.5-25 MG CAPS 1 qd TRIAMTERENE-HC TZ 88009525345 No Longer Active Hope Benavidez MD PhD Active PROZAC 20 MG CAPS 1 q d FLUOXETINE HCL 98904 508144 No Longer Active Hope Benavidez MD PhD Active SIMVASTATIN 40 MG TABS 1 qd SIMVASTATIN 004 64950930 No Longer Active Adam Yates MD Active MELOXICAM 15 MG TABS 1 qd MELOXICAM 8481693 9717 No Longer Active Adam Yates MD Active IMODIUM A-D 2 MG TABS 2 onset at diarrhea and prn. LOPERAMIDE HCL 14158643205 Active Hope Benavidez MD PhD Active EXCEDRIN EXTRA STRENGTH 250-250-65 MG TABS 1-2 q6h PRN headache 201 04/16/21 [id number] 11892459553 Active Hope Benavidez MD PhD Active FLAGYL 500 MG TABS 1 qid METRONIDAZOLE 76849 642320 No Longer Active Adam Yates MD Active LEVAQUIN 750 MG TABS 1 qd LEVOFLOXACIN 5486 9710603 No Longer Active Adam Yates MD Active ADULT ASPIRIN LOW STRENGTH 81 MG TBDP 1 qd A SPIRIN 02626306808 Active Hope Benavidez MD PhD Active LEVAQUIN 750 MG TABS 1 qd LEVAQUIN 750 MG T ABS 660555 LEVOFLOXACIN Inactive FLAGYL 500 MG TABS 1 qid FLAGYL 500 MG TABS 906670 METRONIDAZOLE Inactive MELOXICAM 15 MG TABS 1 qd MELOXICAM 15 MG T ABS 206543 MELOXICAM Inactive SIMVASTATIN 40 MG TABS 1 qd SIMVASTATIN 40 MG TABS 671306 SIMVASTATIN Inactive PROZAC 20 MG CAPS 1 q d PROZAC 20 MG CAPS 31 0385 FLUOXETINE HCL Inactive DYAZIDE 37.5-25 MG CAPS 1 qd DYAZIDE 37.5 -25 MG CAPS 746905 TRIAMTERENE-HCTZ Inactive INNOPRAN XL 120 MG [id number] Take one by mouth daily 2 INNOPRAN XL 120 MG [id number] PROPRANOLOL HCL SR BEADS Inactive PROMETHAZINE HCL 25 MG TABS 1 Q. 4 hr. PRN PROMETHAZINE HCL 25 MG TABS 306795 PROMETHAZINE HCL Inactive POTASSIUM CHLORIDE 20 MEQ PACK by mouth twice a day prn POTASSIUM CHLORIDE 20 MEQ PACK 2330223 POTASSIUM CHLORIDE Inactive PHENADOZ 25 MG SUPP 1 every 4 hrs. PRN PHENADOZ 2 5 MG SUPP 441417 PROMETHAZINE HCL Inactive ZOFRAN 8 MG TABS 1 tab by mouth every 12 hours prn 201 05/16/09 ZOFRAN 8 MG TABS 546415 ONDANSETRON HCL Inactive OMEPRAZOLE 20 MG CPDR 1 tablet by mouth daily for GERD OMEPRAZOLE 20 MG CPDR 296204 OMEPRAZOLE Inactive CYCLOBENZAPRINE HCL 10 MG TABS 1 tablet by mouth three times daily as needed for headaches CYCLOBENZAPRINE HCL 10 MG TABS 104243 CYCLOBENZAPRINE HCL Inactive VITAMIN D3 4000 IU 1 tab 3 times daily VITAMIN D3 4000 IU Inactive PROPRANOLOL HCL 80 MG TABS 1 tab tue. and thur. 04/10 PROPRANOLOL HCL 80 MG TABS 553638 PROPRANOLOL HCL Inactive CYANOCOBALAMIN 1000 MCG/ML INJ SOLN 1 injection every 2 weeks 20 20/01/03 CYANOCOBALAMIN 1000 MCG/ML INJ SOLN 204032 CYANOCOBALAM IN Inactive MAGNESIUM GLUCONATE 250 MG TABS 1 tab tid 4 MAGNESIUM GLUCONATE 250 MG TABS 759271 MAGNESIUM GLUCONATE Inactive LOMOTIL 2.5-0.025 MG TABS 1 tab by mouth prn 4 LOMOTIL 2.5- 0.025 MG TABS 5507133 DIPHENOXYLATE-ATROPINE Inactive FLORANEX PACK 1 pack three times daily, for bowel health FLORANEX PACK LACTOBACILLUS Inactive IRON 325 (65 FE) MG TABS 1 every other day IRON 325 (65 FE) MG TABS 533137 FERROUS SULFATE Inactive FLAGYL 500 MG TABS 1 pill by mouth three times daily, for diarrh ea FLAGYL 500 MG TABS 616593 METRONIDAZOLE Inactive BACTRIM DS 800-160 MG TABS 1 pill by mouth twice daily, for UTI BACTRIM DS 800-160 MG TABS 428364 SULFAMETHOXAZOLE-TRIM ETHOPRIM Inactive Advance Directives Directive Description [...] 11 .0-15.0 platelet count 157 THOUSAND/UL 10*3/mm3 964-812 4021/04/20 mean platelet volume 8.9 fL 7.5-12.5 Lab Report: CBC W/DIFF, Comp. Metabolic Panel, Thyroid Stimulating Hormo ... - Chemistry sodium, serum 139 mmol/L 892-805 7337/10/20 carbon dioxide, venous blood 32.2 mmol/L 21.0-32 [...] 11 .6-14.8 platelet count 180 10^3/MM^3 10*3/mm3 720-204 4910/10/20 erythrocyte (RBC) count 4.69 10^6/MM^3 10*6/mm3 4.04-5.4 8 lymphocytes as percent of blood leukocytes 37.9 % 20.5-51.1 monocytes as percent of blood leukocytes 4.7 % 1.7-9.3 neutrophils as percent of blood leukocytes 53.4 % 42.2-75.2 leukocyte count, blood 6.0 10^3/MM^3 10*3/mm3 4.6-10.2 Lab Report: CEA - Serology carcinoembryonic antigen 0.9 ng/mL carcinoembryonic antigen 0.9 ng/mL Lab Report: Lipid Panel, Calcium - Chemi stry triglyceride, serum, fasting 129 mg/dL 30-200 HDL cholesterol, serum 56 mg/dL 32-96 LDL cholesterol, serum 118 mg/dL 0-130 calcium, serum 9.0 mg/dL 8.5-10.1 cholesterol, serum 200 mg/dL 130-200 Lab Report: MicroAlb Random w/creat/6517 - Urinalysis microalbumin/creatinine ratio, urine 15 MCG/MG CREAT mg/L <30 microalbumin/total urine volume 8 mg/L Units converted. See lab report for original value. Encounters Code Encounter Date Provider Facility CPT-00290 Level 3 Est. Patient 16:26:30 CDT Kina blackmon APRN [facility] CPT-37742 Level 3 New Patient 16:22:01 [employer] Adam Yates MD [facility] CPT-57086 Level 4 Est. Patient 17:00:48 CDT Kylie Lund [facility] CPT-90612 Level 3 Est. Patient 13:15:54 CDT Kylie Lund [facility] CPT-69523 Level 3 Est. Patient 09:10:11 CDT Kylie Lund [facility] CPT-14998 Level 4 Est. Patient 12:08:30 [employer] Hope cohn MD PhD [facility] CPT-44880 Level 4 Est. Patient 19:08:42 [employer] Hope cohn MD [facility] CPT-58037 Level 4 Est. Patient 20:04:51 CDT Hope cohn MD PhD [facility] CPT-11485 Level 3 New Patient 01:46:11 [employer] Hope landers MD PhD [facility] Procedures Code Procedure Name Date Entry Date Standard Desc ription CPT-J0897 Prolia 60 mg 14:14:16 [employer] CPT-31915 Abx/Therapy Injection 14:14:15 [employer] CPT-65976 Lipid - LAB USE ONLY 10:01:52 [employer] 2 CPT-87236 Calcium - LAB USE ONLY 10:01:51 [employer] CPT-60607 Venipuncture Draw Fee 10:01:51 [employer] CPT-LR Lesion Removal 16:22:01 [employer] CPT-09326 TSH - LAB USE ONLY 14:26:02 CDT CPT-90690 CMP - LAB USE ONLY 14:26:01 CDT CPT-84210 CBC with Diff - LAB USE ONLY 14:26:01 CDT 2 CPT-85158 Venipuncture Draw Fee 14:26:01 CDT CPT-09997 First Vx - Ix admin for Medicare patients 13:27:08 CDT CPT-20059 Fluzone High-Dose Intramuscular Suspension 11/26 13:27:08 CDT CPT-G0438 Initial Annual Wellness Exam 14:19:57 CD T CPT-G0009 Administration of Pneumococcal Vaccine 9 11:36:25 CDT CPT-71117 Prevnar 13 Intramuscular Suspension 1 1:36:25 CDT CPT-81384 Prevnar 13 Intramuscular Suspension 1 0:40:58 CDT CPT-J0897 Prolia 60 mg 10:37:16 CDT CPT-90421 Abx/Therapy Injection 10:37:16 CDT CPT-J0897 Prolia 60 mg 16:09:34 [employer] CPT-J0897 Prolia 60 mg 11:10:35 [employer] CPT-45086 Abx/Therapy Injection 11:10:35 [employer] CPT-000 Give Appropriate Flu Vaccine 17:01:15 [employer] 2 CPT-23610 Fluzone High Dose (65+) 15:03:08 [employer] 02/15 CPT-69022 Immunization Single Admin 15:03:08 [employer] 2014 CPT-OV Office Visit 15:58:06 CDT CPT-J0897 Prolia 60 mg 08:45:38 CDT CPT-28126 Abx/Therapy Injection 08:45:38 CDT CPT-J3420 Vitamin B12 1000mcg (Cyanocobalamin) 09:26:20 [employer] CPT-34397 Abx/Therapy Injection 09:26:20 [employer] CPT-J3420 Vitamin B12 1000mcg (Cyanocobalamin) 09:44:40 [employer] CPT-56685 Abx/Therapy Injection 09:44:40 [employer] CPT-J3420 Vitamin B12 1000mcg (Cyanocobalamin) 09:15:54 [employer] CPT-29675 Abx/Therapy Injection 09:15:54 [employer] CPT-J3420 Vitamin B12 1000mcg (Cyanocobalamin) 09:46:44 [employer] CPT-14579 Abx/Therapy Injection 09:46:44 [employer] CPT-J3420 Vitamin B12 1000mcg (Cyanocobalamin) 09:47:34 [employer] CPT-61530 Abx/Therapy Injection 09:47:34 [employer] CPT-J3420 Vitamin B12 1000mcg (Cyanocobalamin) 14:35:50 [employer] CPT-J3420 Vitamin B12 1000mcg (Cyanocobalamin) 09:25:05 [employer] CPT-65025 Abx/Therapy Injection 09:25:05 [employer] CPT-G0008 Administration of Influenza Virus Vaccine 13:36:47 CDT CPT-75196 Fluzone High-Dose Intramuscular Suspension 11/15 13:36:47 CDT CPT-J0897 Prolia 60 mg 08:50:41 CDT CPT-62327 Abx/Therapy Injection 08:50:41 CDT CPT-46062 Bone Density 12:06:12 CDT CPT-21492 Bone Density 08:54:40 CDT CPT-OV Office Visit 15:37:02 CDT CPT-97783 Postop F/U Visit 15:47:49 CDT CPT-88970 Postop F/U Visit 15:21:02 CDT CPT-TCMH Transitional Care Mgmt-High 07:52:27 CDT 20 20/06/01 CPT-55871 Venipuncture Draw Fee 13:51:18 CDT CPT-28805 Venipuncture Draw Fee 10:14:55 [employer] CPT-55036 Venipuncture Draw Fee 13:39:45 [employer] CPT-OV Office Visit 15:11:22 [employer] CPT-32611 Venipuncture Draw Fee 09:20:49 [employer] CPT-63437 Venipuncture Draw Fee 16:52:15 [employer] CPT-69807 Venipuncture Draw Fee 10:37:24 [employer] CPT-72710 Venipuncture Draw Fee 08:21:21 [employer] CPT-65400 Venipuncture Draw Fee 08:30:20 [employer] CPT-33516 Venipuncture Draw Fee 14:53:21 [employer] CPT-93116 Venipuncture Draw Fee 09:40:56 [employer] CPT-95518 Venipuncture Draw Fee 10:30:47 [employer] CPT-50932 Venipuncture Draw Fee 10:46:17 [employer] CPT-47001 Venipuncture Draw Fee 11:12:45 [employer] CPT-78700 Venipuncture Draw Fee 09:53:33 [employer] CPT-93982 Venipuncture Draw Fee 11:53:51 [employer] CPT-70008 Venipuncture Draw Fee 10:33:50 [employer] CPT-93943 Venipuncture Draw Fee 10:05:01 [employer] CPT-22252 Venipuncture Draw Fee 14:32:52 [employer] CPT-49174 Venipuncture Draw Fee 09:46:13 [employer] CPT-94093 Venipuncture Draw Fee 11:34:27 [employer] CPT-54060 Venipuncture Draw Fee 13:17:16 [employer] CPT-92810 Venipuncture Draw Fee 12:05:39 CDT CPT-29976 Venipuncture Draw Fee 12:49:12 CDT CPT-82407 Venipuncture Draw Fee 12:37:18 CDT CPT-14424 Venipuncture Draw Fee 10:57:11 CDT CPT-64140 Venipuncture Draw Fee 13:47:40 CDT CPT-20159 Venipuncture Draw Fee 10:02:17 CDT CPT-88117 TB Tubersol 17:32:32 CDT CPT-OV Office Visit 16:21:53 CDT CPT-OV Office Visit 15:49:22 CDT CPT-OV Office Visit 17:16:31 CDT CPT-OV Office Visit 10:43:31 CDT
--- OUTSIDE RECORDS SUMMARY | 2019-02-09 12:37 | XMS REPORT | Clinical Summary ---
Author Author Admin, Florecita Munoz Organization [facility] Address Unknown Phone Unavailable Allergies, Adverse Reactions, [...] Sebaceous cyst, scalp 706.2 Resolved Kylie Yokum RHEUMATOLOGY NURSE Sebaceous cyst Cervical lymphadenopathy, anterior, left 785.6 Resolv ed Kylie Yokum RHEUMATOLOGY NURSE Enlargement of lymph nodes Need for prophylactic vaccination and inoculation against in fluenza V04.81 Resolved Adam Yates MD Need for prophylactic vaccination and inoculation against influenza Preventive health care V70.0 Active Kylie Yokum RHEUMATOLOGY NURSE Routine general medical examination at a health care facility Thyroid nodule, left 241.0 Active Kylie Yokum A PRN Nontoxic uninodular goiter Screening mammogram V76.12 Active Kylie Yokum AP RN Other screening mammogram Mandy 706.2 Resolved Kylie Yokum RHEUMATOLOGY NURSE Sebaceous cyst Colon cancer, ascending 153.6 Resolved Kylie Yok um RHEUMATOLOGY NURSE Malignant neoplasm of ascending colon Foot pain, left 729.5 Active 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 Pain in limb Splinter 919.6 Active Kylie Yokum RHEUMATOLOGY NURSE Superficial foreign body (splinter) of other, multiple, and unspecified sites, without major open wound and without mention of infection Rash 782.1 Active Kylie Yokum RHEUMATOLOGY NURSE R aurora and other nonspecific skin eruption ABDOMINAL PAIN, RIGHT LOWER QUADRANT ICD-789.03 Inactive Kina Joshua RHEUMATOLOGY NURSE ADENOCARCINOMA, COLON, 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 Dick Yates MD ABDOMINAL PAIN, GENERALIZED ICD-789.07 Inactive Hope Benavidez MD PhD FEVER UNSPECIFIED ICD-780.60 Inactive Hope cohn MD PhD UNSPECIFIED VENOUS INSUFFICIENCY ICD-459.81 Elda ctive Adam Yates MD ADENOCARCINOMA, 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 Inac tive Hope Benavidez MD PhD Hyperkalemia ICD-276.7 Inactive Hope Benavidez MD PhD GERD ICD-530.81 Inactive Kylie Yanet RHEUMATOLOGY NURSE 2015 Health maintenance exam ICD-V70.0 Bam Yates MD Anemia ICD-285.9 Inactive Kylie Yanet RHEUMATOLOGY NURSE 07/24 Hypomagnesemia ICD-275.2 Inactive Kylie Yogabbium RHEUMATOLOGY NURSE Weakness ICD-780.79 Inactive Hope Benavidez MD P [...] Yates MD Sebaceous cyst, scalp ICD-706.2 Inactive Tarcy Lnudum RHEUMATOLOGY NURSE Cervical lymphadenopathy, anterior, left ICD-785.6 Inactive Kylie Lundum RHEUMATOLOGY NURSE Need for prophylactic vaccination and inoculation against in fluenza ICD-V04.81 Inactive Adam Yates MD Mandy ICD-706.2 Inactive Kylie Lundum AMY 07/20 Colon cancer, ascending ICD-153.6 Inactive Gabbi Escalonagabbioliver AMY Medication List Medication Instructions Start Date Stop Date Generic Name ND Status Provider Patient Instruction VOLTAREN 1 % TRANSDERMAL GEL apply q 6-8 hour to left arm as needed for pain DICLOFENAC SODIUM 40963872685 Active Kylie Lundum RHEUMATOLOGY NURSE Active COQ10 100 MG ORAL CAPSULE 1 daily COENZYME Q10 442817 24653 Active LETY [place] Active VITAMIN D3 2000 UNIT ORAL CAPSULE Melaleuca-One daily CHOLECALCIFEROL 47164903874 Active Kylie Lundum RHEUMATOLOGY NURSE Active PROBIOTIC DAILY ORAL CAPSULE Take one daily PROBIO TIC PRODUCT 59017587091 Active Kylie Escalonakum RHEUMATOLOGY NURSE Active IRON 325 (65 Fe) MG ORAL TABLET 1 every other day FERROUS SULFATE 87561921079 No Longer Active Kylie Lundum RHEUMATOLOGY NURSE Active FLORANEX ORAL PACKET 1 pack three times daily, for bowel health LACTOBACILLUS 18270743228 No Longer Active Kylie Kevonum RHEUMATOLOGY NURSE Active LOMOTIL 2.5-0.025 MG ORAL TABLET 1 tab by mouth prn 23/10/23 DIPHENOXYLATE-ATROPINE 56509622969 No Longer Active Kylie Yokum RHEUMATOLOGY NURSE Active MAGNESIUM GLUCONATE 250 MG ORAL TABLET 1 tab tid 23/10/23 MAGNESIUM GLUCONATE 96430889420 No Longer Active Kylie Yokum RHEUMATOLOGY NURSE Active CYANOCOBALAMIN 1000 MCG/ML INJECTION SOLUTION 1 injection ev ruben 2 weeks CYANOCOBALAMIN 27370256546 No Longer Active Kylie Lund um RHEUMATOLOGY NURSE Active ATENOLOL 25 MG ORAL TABLET 1/2 pill by mouth daily, fo r headaches, blood pressure ATENOLOL 10360190812 Active Kylie Lundum RHEUMATOLOGY NURSE Active PROPRANOLOL HCL 80 MG ORAL TABLET 1 tab tue. and thur. PROPRANOLOL HCL 19545415367 No Longer Active Hope Benavidez MD PhD A ctive VITAMIN D3 4000 IU 1 tab 3 times daily VITAMIN D3 4000 IU No Longer Active Hope Benavidez MD PhD Active BACTRIM DS 800-160 MG ORAL TABLET 1 pill by mouth twice claudio y, for UTI SULFAMETHOXAZOLE-TRIMETHOPRIM 67298981431 No Longer Active Hope Benavidez MD PhD Active PROLIA 60 MG/ML SUBCUTANEOUS SOLUTION 1 shot every 6 months for osteoprosis DENOSUMAB 31708366917 Active Hope Benavidez MD PhD Active CALCIUM + D + K 750-500-40 MG-UNT-MCG ORAL TABLET 1 tab by [facility] twice daily CALCIUM-VITAMIN D-VITAMIN K 50181971182 Active Hope valdez MD PhD Active DAILY VALUE MULTIVITAMIN ORAL TABLET 1 tab by mouth twice daily 201 05/16/14 MULTIPLE VITAMIN 28744373120 Active Hope Benavidez MD PhD Acti ve FISH OIL 306 MG CAPS 1 tab by mouth three times daily OMEGA-3 FATTY ACIDS 93616777303 Active Hope Benavidez MD PhD Active LUTEIN 10 MG ORAL TABLET 1 tab daily LUTEIN 57156783 408 Active Hope Benavidez MD PhD Active TRIAMTERENE-HCTZ 37.5-25 MG ORAL TABLET 1 tab by mouth daily 10/22 TRIAMTERENE-HCTZ 32614408333 Active Kylie Escalonagabbioliver RHEUMATOLOGY NURSE Active CYCLOBENZAPRINE HCL 10 MG ORAL TABLET 1 tablet by mout h three times daily as needed for headaches CYCLOBENZAPRINE HCL 69808937026 No Longer Active Adam Yates MD Active OMEPRAZOLE 20 MG ORAL CAPSULE DELAYED RELEASE 1 tablet by mo [facility] daily for GERD OMEPRAZOLE 49167904590 No Longer Active Adam Yates MD Active ZOFRAN 8 MG ORAL TABLET 1 tab by mouth every 12 hours prn 4 ONDANSETRON HCL 66480481461 No Longer Active Adam Yates MD Active PHENADOZ 25 MG RECTAL SUPPOSITORY 1 every 4 hrs. PRN 2 PROMETHAZINE HCL 31684245226 No Longer Active Adam Yates MD A ctive POTASSIUM CHLORIDE 20 MEQ ORAL PACKET by mouth twice a day prn 2 POTASSIUM CHLORIDE 49244746960 No Longer Active Adam Carpenter MD Active PROMETHAZINE HCL 25 MG ORAL TABLET 1 Q. 4 hr. PRN PROMETHAZINE HCL 96193462693 No Longer Active Adam Yates MD Active INNOPRAN XL 120 MG ORAL CAPSULE EXTENDED RELEASE 24 HO UR Take one by mouth daily PROPRANOLOL HCL SR BEADS 40976460396 No Longer Active Adam Yates MD Active FLAGYL 500 MG ORAL TABLET 1 pill by mouth three times daily, for diarrhea METRONIDAZOLE 00690584642 No Longer Active Hope landers MD PhD Active DYAZIDE 37.5-25 MG ORAL CAPSULE 1 qd TRIA MTERENE-HCTZ 80077048851 No Longer Active Hope Benavidez MD PhD Active PROZAC 20 MG ORAL CAPSULE 1 q d FLUOXETINE HCL 67166457611 No Longer Active Hope Benavidez MD PhD Active SIMVASTATIN 40 MG ORAL TABLET 1 qd SIMVAS TATIN 56729396571 No Longer Active Adam Yates MD Active MELOXICAM 15 MG ORAL TABLET 1 qd MELOXICAM 79695989094 No Longer Active Adam Yates MD Active IMODIUM A-D 2 MG ORAL TABLET 2 onset at diarrhea and prn. LOPERAMIDE HCL 10287351148 Active Hope Benavidez MD PhD Active EXCEDRIN EXTRA STRENGTH 250-250-65 MG ORAL TABLET 1-2 q6h PA N headache ASNJONF-UEQHIRHATUZVI-XLRSECOU 92840336880 Active Hope Benavidez MD PhD Active FLAGYL 500 MG ORAL TABLET 1 qid METRONIDAZOL E 90117551695 No Longer Active Adam Yates MD Active LEVAQUIN 750 MG ORAL TABLET 1 qd LEVOFLOXAC IN 59552752035 No Longer Active Adam Yates MD Active ADULT ASPIRIN LOW STRENGTH 81 MG ORAL TABLET DISINTEGRATING 1 qd ASPIRIN 10495727705 Active Hope Benavidez MD PhD Active LEVAQUIN 750 MG ORAL TABLET 1 qd LEVAQUIN 750 MG ORAL TABLET 940240 LEVOFLOXACIN Inactive FLAGYL 500 MG ORAL TABLET 1 qid FLAGYL 500 MG ORAL TABLET 932078 METRONIDAZOLE Inactive MELOXICAM 15 MG ORAL TABLET 1 qd MELOXICAM 15 MG ORAL TABLET 608629 MELOXICAM Inactive SIMVASTATIN 40 MG ORAL TABLET 1 qd SIMVASTATIN 40 MG ORAL TABLET 454933 SIMVASTATIN Inactive PROZAC 20 MG ORAL CAPSULE 1 q d PROZAC 20 MG ORAL CAPSULE 694203 FLUOXETINE HCL Inactive DYAZIDE 37.5-25 MG ORAL CAPSULE 1 qd 5 DYAZIDE 37.5-25 MG ORAL CAPSULE 512559 TRIAMTERENE-HCTZ Inactive INNOPRAN XL 120 MG ORAL CAPSULE EXTENDED RELEASE 24 HO UR Take one by mouth daily INNOPRAN XL 120 MG ORAL CAPSULE EXTENDED RELEASE 24 HOUR PROPRANOLOL HCL SR BEADS Inactive PROMETHAZINE HCL 25 MG ORAL TABLET 1 Q. 4 hr. PRN 2013 PROMETHAZINE HCL 25 MG ORAL TABLET 755194 PROMETHAZINE HCL Inactive POTASSIUM CHLORIDE 20 MEQ ORAL PACKET by mouth twice a day prn 2 POTASSIUM CHLORIDE 20 MEQ ORAL PACKET 7361966 POTASSIUM CHLORIDE Inactive PHENADOZ 25 MG RECTAL SUPPOSITORY 1 every 4 hrs. PRN 2 PHENADOZ 25 MG RECTAL SUPPOSITORY 839504 PROMETHAZINE HCL Inactive ZOFRAN 8 MG ORAL TABLET 1 tab by mouth every 12 hours prn 4 ZOFRAN 8 MG ORAL TABLET 525694 ONDANSETRON HCL Inactive OMEPRAZOLE 20 MG ORAL CAPSULE DELAYED RELEASE 1 tablet by mo uth daily for GERD OMEPRAZOLE 20 MG ORAL CAPSULE DELAYED RELEASE 19 8051 OMEPRAZOLE Inactive CYCLOBENZAPRINE HCL 10 MG ORAL TABLET 1 tablet by mout h three times daily as needed for headaches CYCLOBENZAPRINE HCL 10 MG ORAL TABLET 682466 CYCLOBENZAPRINE HCL Inactive VITAMIN D3 4000 IU 1 tab 3 times daily VITAMIN D3 4000 IU Inactive PROPRANOLOL HCL 80 MG ORAL TABLET 1 tab tue. and thur. PROPRANOLOL HCL 80 MG ORAL TABLET 491161 PROPRANOLOL HCL Inacti ve CYANOCOBALAMIN 1000 MCG/ML INJECTION SOLUTION 1 injection ev ruben 2 weeks CYANOCOBALAMIN 1000 MCG/ML INJECTION SOLUTION 30 9594 CYANOCOBALAMIN Inactive MAGNESIUM GLUCONATE 250 MG ORAL TABLET 1 tab tid 20 23/10/23 MAGNESIUM GLUCONATE 250 MG ORAL TABLET 711738 MAGNESIUM GLUCONATE Inactive LOMOTIL 2.5-0.025 MG ORAL TABLET 1 tab by mouth prn 20 23/10/23 LOMOTIL 2.5-0.025 MG ORAL TABLET 1427161 DIPHENOXYLATE-ATROPINE Inac tive FLORANEX ORAL PACKET 1 pack three times daily, for bowel health FLORANEX ORAL PACKET LACTOBACILLUS Inactive IRON 325 (65 Fe) MG ORAL TABLET 1 every other day 2015 IRON 325 (65 Fe) MG ORAL TABLET 879552 FERROUS SULFATE Inactive FLAGYL 500 MG ORAL TABLET 1 pill by mouth three times daily, for diarrhea FLAGYL 500 MG ORAL TABLET 779187 METRONIDAZOLE I nactive BACTRIM DS 800-160 MG ORAL TABLET 1 pill by mouth twice claudio y, for UTI BACTRIM DS 800-160 MG ORAL TABLET 184323 SULFAMETHOXAZOLE-TRIMETHOPRIM Inactive Advance Directives Directive Description Start [...] 11 .0-15.0 platelet count 157 THOUSAND/UL 10*3/mm3 644-722 6269/04/20 mean platelet volume 8.9 fL 7.5-12.5 Lab Report: CE[facility] - Serology carcinoembryonic antigen 0.9 ng/mL Encounters Code Encounter Date Provider Facility CPT-04283 Level 2 Est. Patient 14:27:16 [employer] Kylie Lund [facility] CPT-46810 Level 3 Est. Patient 17:54:48 CDT Kylie Lund [facility] CPT-37899 Level 3 Est. Patient 16:26:30 CDT Kina blackmon [facility] CPT-80389 Level 3 New Patient 16:22:01 [employer] Adam Yates MD [facility] CPT-04528 Level 4 Est. Patient 17:00:48 CDT Kylie Lund [facility] CPT-65230 Level 3 Est. Patient 13:15:[address] [facility] CPT-07758 Level 3 Est. Patient 09:10:[address] [facility] CPT-78833 Level 4 Est. Patient 12:08:30 [employer] Hope cohn MD PhD [facility] CPT-23422 Level 4 Est. Patient 19:08:42 [employer] Hope cohn MD PhD [facility] CPT-25727 Level 4 Est. Patient 20:04:51 CDT Hope cohn MD PhD [facility] CPT-45183 Level 3 New Patient 01:46:11 [employer] Hope landers MD PhD [facility] Procedures Code Procedure Name Date Entry Date Standard Desc ription CPT-08288 First Vx - Ix admin for Medicare patients 11:19:30 CDT CPT-09973 Fluzone High-Dose Intramuscular Suspension 12/07 11:19:30 CDT CPT-J0897 Prolia 60 mg 14:55:42 CDT CPT-53399 Abx/Therapy Injection 14:55:42 CDT CPT-37196 Bone Density - XRAY USE ONLY 10:27:12 CDT 2 CPT-G0439 [facility] Annual Wellness Exam 17:54:53 CDT CPT-10471 Foot, left, comp min 3V - XRAY USE ONLY 12:22:49 CDT CPT-G0009 Administration of Pneumococcal Vaccine 3 12:18:00 CDT CPT-02443 Pneumovax 23 Injection Injectable 25 MCG /0.5ML 12:18:00 CDT CPT-J0897 Prolia 60 mg 14:14:16 [employer] CPT-72473 Abx/Therapy Injection 14:14:15 [employer] CPT-35484 Lipid - LAB USE ONLY 10:01:52 [employer] 2 CPT-83375 Calcium - LAB USE ONLY 10:01:51 [employer] CPT-36330 Venipuncture Draw Fee 10:01:51 [employer] CPT-LR Lesion Removal 16:22:01 [employer] CPT-75600 TSH - LAB USE ONLY 14:26:02 CDT CPT-93058 CMP - LAB USE ONLY 14:26:01 CDT CPT-95111 CBC with Diff - LAB USE ONLY 14:26:01 CDT 2 CPT-03739 Venipuncture Draw Fee 14:26:01 CDT CPT-57273 First Vx - Ix admin for Medicare patients 13:27:08 CDT CPT-17362 Fluzone High-Dose Intramuscular Suspension 11/26 13:27:08 CDT CPT-G0438 Initial Annual Wellness Exam 14:19:57 CD T CPT-G0009 Administration of Pneumococcal Vaccine 9 11:36:25 CDT CPT-02270 Prevnar 13 Intramuscular Suspension 1 1:36:25 CDT CPT-68049 Prevnar 13 Intramuscular Suspension 1 0:40:58 CDT CPT-J0897 Prolia 60 mg 10:37:16 CDT CPT-13076 Abx/Therapy Injection 10:37:16 CDT CPT-J0897 Prolia 60 mg 16:09:34 [employer] CPT-J0897 Prolia 60 mg 11:10:35 [employer] CPT-58873 Abx/Therapy Injection 11:10:35 [employer] CPT-000 Give Appropriate Flu Vaccine 17:01:15 [employer] 2 CPT-73387 Fluzone High Dose (65+) 15:03:08 [employer] 02/15 CPT-60415 Immunization Single Admin 15:03:08 [employer] 2014 CPT-OV Office Visit 15:58:06 CDT CPT-J0897 Prolia 60 mg 08:45:38 CDT CPT-55676 Abx/Therapy Injection 08:45:38 CDT CPT-J3420 Vitamin B12 1000mcg (Cyanocobalamin) 09:26:20 [employer] CPT-65488 Abx/Therapy Injection 09:26:20 [employer] CPT-J3420 Vitamin B12 1000mcg (Cyanocobalamin) 09:44:40 [employer] CPT-48895 Abx/Therapy Injection 09:44:40 [employer] CPT-J3420 Vitamin B12 1000mcg (Cyanocobalamin) 09:15:54 [employer] CPT-79703 Abx/Therapy Injection 09:15:54 [employer] CPT-J3420 Vitamin B12 1000mcg (Cyanocobalamin) 09:46:44 [employer] CPT-93885 Abx/Therapy Injection 09:46:44 [employer] CPT-J3420 Vitamin B12 1000mcg (Cyanocobalamin) 09:47:34 [employer] CPT-77247 Abx/Therapy Injection 09:47:34 [employer] CPT-J3420 Vitamin B12 1000mcg (Cyanocobalamin) 14:35:50 [employer] CPT-J3420 Vitamin B12 1000mcg (Cyanocobalamin) 09:25:05 [employer] CPT-52979 Abx/Therapy Injection 09:25:05 [employer] CPT-G0008 Administration of Influenza Virus Vaccine 13:36:47 CDT CPT-75964 Fluzone High-Dose Intramuscular Suspension 11/15 13:36:47 CDT CPT-J0897 Prolia 60 mg 08:50:41 CDT CPT-40914 Abx/Therapy Injection 08:50:41 CDT CPT-87645 Bone Density 12:06:12 CDT CPT-50418 Bone Density 08:54:40 CDT CPT-OV Office Visit 15:37:02 CDT CPT-33970 Postop F/U Visit 15:47:49 CDT CPT-78542 Postop F/U Visit 15:21:02 CDT [facility] Trans[facility] Care Mgmt-High 07:52:27 CDT 20 20/06/01 CPT-89768 Venipuncture Draw Fee 13:51:18 CDT CPT-73387 Venipuncture Draw Fee 10:14:55 [employer] CPT-87728 Venipuncture Draw Fee 13:39:45 [employer] CPT-OV Office Visit 15:11:22 [employer] CPT-27176 Venipuncture Draw Fee 09:20:49 [employer] CPT-70276 Venipuncture Draw Fee 16:52:15 [employer] CPT-44825 Venipuncture Draw Fee 10:37:24 [employer] CPT-15106 Venipuncture Draw Fee 08:21:21 [employer] CPT-71137 Venipuncture Draw Fee 08:30:20 [employer] CPT-96200 Venipuncture Draw Fee 14:53:21 [employer] CPT-49035 Venipuncture Draw Fee 09:40:56 [employer] CPT-43573 Venipuncture Draw Fee 10:30:47 [employer] CPT-81474 Venipuncture Draw Fee 10:46:17 [employer] CPT-40949 Venipuncture Draw Fee 11:12:45 [employer] CPT-87042 Venipuncture Draw Fee 09:53:33 [employer] CPT-48253 Venipuncture Draw Fee 11:53:51 [employer] CPT-74522 Venipuncture Draw Fee 10:33:50 [employer] CPT-79708 Venipuncture Draw Fee 10:05:01 [employer] CPT-95884 Venipuncture Draw Fee 14:32:52 [employer] CPT-10527 Venipuncture Draw Fee 09:46:13 [employer] CPT-14102 Venipuncture Draw Fee 11:34:27 [employer] CPT-06901 Venipuncture Draw Fee 13:17:16 [employer] CPT-65061 Venipuncture Draw Fee 12:05:39 CDT CPT-36541 Venipuncture Draw Fee 12:49:12 CDT CPT-80794 Venipuncture Draw Fee 12:37:18 CDT CPT-80345 Venipuncture Draw Fee 10:57:11 CDT CPT-61746 Venipuncture Draw Fee 13:47:40 CDT CPT-72917 Venipuncture Draw Fee 10:02:17 CDT CPT-12308 TB Tubersol 17:32:32 CDT CPT-OV Office Visit 16:21:53 CDT CPT-OV Office Visit 15:49:22 CDT CPT-OV Office Visit 17:16:31 CDT CPT-OV Office Visit 10:43:31 CDT
--- OUTSIDE RECORDS SUMMARY | 2019-02-09 12:38 | XMS REPORT | Clinical Summary ---
Author Author Renaldo, Florecita Munoz Organization [facility] Address Unknown Phone Unavailable Allergies, Adverse Reactions, [...] PhD Hyperpotassemia GERD 530.81 Resolved Kylie Yokum AIRCRAFT MANAGER Esophageal reflux Health maintenance exam V70.0 Resolved Adolfo Yates MD Routine general medical examination at a health care facility Anemia 285.9 Resolved Kylie Holt AIRCRAFT MANAGER Anemia, unspecified Personal history of malignant neoplasm of large intestine V10.05 Active Adam Yates MD Personal history of malignant neoplasm of large intestine Hypomagnesemia 275.2 Resolved Kylie Holt AIRCRAFT MANAGER Disorders of magnesium metabolism Weakness 780.79 [...] unspecified FH Colon Cancer V16.0 Active Adam Deras D Family history of malignant neoplasm of [...] colon Sebaceous cyst, scalp 706.2 Resolved Kylie Lundum AIRCRAFT MANAGER Sebaceous cyst Cervical lymphadenopathy, anterior, left 785.6 Resolv ed Kylie Lundum AIRCRAFT MANAGER Enlargement of lymph nodes Need for prophylactic vaccination and inoculation against in fluenza V04.81 Resolved Adam Yates MD Need for prophylactic vaccination and inoculation against influenza Preventive health care V70.0 Resolved Kylie deras AIRCRAFT MANAGER Routine general medical examination at a health care facility Thyroid nodule, left 241.0 Active Kylie Holt A PRN Nontoxic uninodular goiter Screening mammogram V76.12 Active Kylie Holt AP RN Other screening mammogram Mandy 706.2 Resolved Kylie Yogabbium AIRCRAFT MANAGER Sebaceous cyst Colon cancer, ascending 153.6 Resolved Kylie Yok um AIRCRAFT MANAGER Malignant neoplasm of ascending colon Foot pain, left 729.5 Active Sulema Schwarz STATISTICAL PROGRAMMER 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 Pain in limb Splinter 919.6 Resolved Kylie Yokum AIRCRAFT MANAGER Superficial foreign body (splinter) of other, multiple, and unspecified sites, without major open wound and without mention of infection Rash 782.1 Resolved Kylie Yokum AIRCRAFT MANAGER Rash and other nonspecific skin eruption Cyst 706.2 Active Kylie Yogabbium AIRCRAFT MANAGER S ebaceous cyst Body Mass Index 23.0-23.9 Adult Active Kylie Lundum AIRCRAFT MANAGER Body Mass Index between 19-24, adult Unspecified fall, initial encounter E888.9 Active Kylieshubham Holt AIRCRAFT MANAGER Unspecified fall Eye pain, left 379.91 Active Kylie Yogabbium AIRCRAFT MANAGER Pain in or around eye ABDOMINAL PAIN, RIGHT LOWER QUADRANT ICD-789.03 Inactive Kina Joshua AIRCRAFT MANAGER ADENOCARCINOMA, COLON, 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 iDck Yates MD ABDOMINAL PAIN, GENERALIZED ICD-789.07 Inactive Hope Benavidez MD PhD FEVER UNSPECIFIED ICD-780.60 Inactive Hope cohn MD PhD UNSPECIFIED VENOUS INSUFFICIENCY ICD-459.81 Elda ctive Adam Yates MD ADENOCARCINOMA, 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 Inac tive Hope Benavidez MD PhD Hyperkalemia ICD-276.7 Inactive Hope Benavidez MD PhD GERD ICD-530.81 Inactive Kylie Holt AIRCRAFT MANAGER 2015 Health maintenance exam ICD-V70.0 Bam Yates MD Anemia ICD-285.9 Inactive Kylie Kevonum AIRCRAFT MANAGER 07/24 Hypomagnesemia ICD-275.2 Inactive Kylie Yokum AIRCRAFT MANAGER Weakness ICD-780.79 Inactive Hope Benavidez MD [...] cyst, scalp ICD-706.2 Inactive Tracy hi Yokum AIRCRAFT MANAGER Cervical lymphadenopathy, anterior, left ICD-785.6 Inactive Kylie Yokum AIRCRAFT MANAGER Need for prophylactic vaccination and inoculation against in fluenza ICD-V04.81 Inactive Adam Yates MD Preventive health care ICD-V70.0 Inactive Ka thi Yokum AIRCRAFT MANAGER Mandy ICD-706.2 Inactive Kylie Yokum AIRCRAFT MANAGER 07/20 Colon cancer, ascending ICD-153.6 Inactive K athi Yokum AIRCRAFT MANAGER Splinter ICD-919.6 Inactive Kylie Yokum AIRCRAFT MANAGER 2017 Rash ICD-782.1 Inactive Kylie Yokum AIRCRAFT MANAGER 07/25 Medication List Medication Instructions Start Date Stop Date Generic Name NDC Status Provider Patient Instruction IMODIUM A-D 2 MG ORAL TABLET 1 tablet twice a day LOPERAMIDE HCL 51361534794 Active Kylie Yokum AIRCRAFT MANAGER Active VOLTAREN 1 % TRANSDERMAL GEL apply q 6-8 hour to left arm as needed for pain DICLOFENAC SODIUM 88436577143 Active Kylie Yokum AIRCRAFT MANAGER Active COQ10 100 MG ORAL CAPSULE 1 daily COENZYME Q10 090128 58475 Active LETY Nation Active VITAMIN D3 2000 UNIT ORAL CAPSULE Melaleuca-One daily CHOLECALCIFEROL 04302854186 Active Kylie Holt AIRCRAFT MANAGER Active PROBIOTIC DAILY ORAL CAPSULE Take one daily PROBIO TIC PRODUCT 79011618675 Active Kylie Lundum AIRCRAFT MANAGER Active IRON 325 (65 Fe) MG ORAL TABLET 1 every other day FERROUS SULFATE 39094955087 No Longer Active Kylie Lundum AIRCRAFT MANAGER Active FLORANEX ORAL PACKET 1 pack three times daily, for bowel health LACTOBACILLUS 00556977851 No Longer Active Kylie Holt APRN Active LOMOTIL 2.5-0.025 MG ORAL TABLET 1 tab by mouth prn 23/10/23 DIPHENOXYLATE-ATROPINE 42577921486 No Longer Active Kylie Lundum AIRCRAFT MANAGER Active MAGNESIUM GLUCONATE 250 MG ORAL TABLET 1 tab tid 23/10/23 MAGNESIUM GLUCONATE 95340579382 No Longer Active Kylie Holt APRN Active CYANOCOBALAMIN 1000 MCG/ML INJECTION SOLUTION 1 injection ev ruben 2 weeks CYANOCOBALAMIN 94126021167 No Longer Active Kylie Lund um AIRCRAFT MANAGER Active ATENOLOL 25 MG ORAL TABLET 1/2 pill by mouth daily, fo r headaches, blood pressure ATENOLOL 79947914037 Active Kylie Lundum AIRCRAFT MANAGER Active PROPRANOLOL HCL 80 MG ORAL TABLET 1 tab tue. and thur. PROPRANOLOL HCL 30288252582 No Longer Active Hope Benavidez MD PhD A ctive VITAMIN D3 4000 IU 1 tab 3 times daily VITAMIN D3 4000 IU No Longer Active Hope Benavidez MD PhD Active BACTRIM DS 800-160 MG ORAL TABLET 1 pill by mouth twice claudio y, for UTI SULFAMETHOXAZOLE-TRIMETHOPRIM 36679332252 No Longer Active Hope Benavidez MD PhD Active PROLIA 60 MG/ML SUBCUTANEOUS SOLUTION 1 shot every 6 months for osteoprosis DENOSUMAB 18194065543 Active Hope Benavidez MD PhD Active CALCIUM + D + K 750-500-40 MG-UNT-MCG ORAL TABLET 1 tab by m out twice daily CALCIUM-VITAMIN D-VITAMIN K 24470306764 Active Hope valdez MD PhD Active DAILY VALUE MULTIVITAMIN ORAL TABLET 1 tab by mouth twice daily 201 05/16/14 MULTIPLE VITAMIN 28073289989 Active Hope Benavidez MD PhD Acti ve FISH OIL 306 MG CAPS 1 tab by mouth three times daily OMEGA-3 FATTY ACIDS 40755100963 Active Hope Benavidez MD PhD Active LUTEIN 10 MG ORAL TABLET 1 tab daily LUTEIN 52696680 408 Active Hope Benavidez MD PhD Active TRIAMTERENE-HCTZ 37.5-25 MG ORAL TABLET 1 tab by mouth daily 10/22 TRIAMTERENE-HCTZ 23431728030 Active Kylie Yanet REYES Active CYCLOBENZAPRINE HCL 10 MG ORAL TABLET 1 tablet by mout h three times daily as needed for headaches CYCLOBENZAPRINE HCL 23265053765 No Longer Active Adam Yates MD Active OMEPRAZOLE 20 MG ORAL CAPSULE DELAYED RELEASE [address] [facility] daily for GERD OMEPRAZOLE 19548646077 No Longer Active Adam Yates MD Active ZOFRAN 8 MG ORAL TABLET 1 tab by mouth every 12 hours prn 4 ONDANSETRON HCL 54224509443 No Longer Active Adam Yates MD Active PHENADOZ 25 MG RECTAL SUPPOSITORY 1 every 4 hrs. PRN 2 PROMETHAZINE HCL 16015504348 No Longer Active Adam Yates MD A ctive POTASSIUM CHLORIDE 20 MEQ ORAL PACKET by mouth twice a day prn 2 POTASSIUM CHLORIDE 89908583621 No Longer Active Adam Carpenter MD Active PROMETHAZINE HCL 25 MG ORAL TABLET 1 Q. 4 hr. PRN PROMETHAZINE HCL 37871213064 No Longer Active Adam Yates MD Active INNOPRAN XL 120 MG ORAL CAPSULE EXTENDED RELEASE 24 HO UR Take one by mouth daily PROPRANOLOL HCL SR BEADS 56878665490 No Longer Active Adam Yates MD Active FLAGYL 500 MG ORAL TABLET 1 pill by mouth three times daily, for diarrhea METRONIDAZOLE 88685238361 No Longer Active Hope landers MD PhD Active DYAZIDE 37.5-25 MG ORAL CAPSULE 1 qd TRIA MTERENE-HCTZ 13507993771 No Longer Active Hope Benavidez MD PhD Active PROZAC 20 MG ORAL CAPSULE 1 q d FLUOXETINE HCL 21664020789 No Longer Active Hope Benavidez MD PhD Active SIMVASTATIN 40 MG ORAL TABLET 1 qd SIMVAS TATIN 00728317065 No Longer Active Adam Ytaes MD Active MELOXICAM 15 MG ORAL TABLET 1 qd MELOXICAM 79911218469 No Longer Active Adam Yates MD Active EXCEDRIN EXTRA STRENGTH 250-250-65 MG ORAL TABLET 1-2 q6h AL N headache [id number] 81013030568 Active Hope Benavidez MD PhD Active FLAGYL 500 MG ORAL TABLET 1 qid METRONIDAZOL E 65150887288 No Longer Active Adam Yates MD Active LEVAQUIN 750 MG ORAL TABLET 1 qd LEVOFLOXAC IN 35177991427 No Longer Active Adam Yates MD Active ADULT ASPIRIN LOW STRENGTH 81 MG ORAL TABLET DISINTEGRATING 1 qd ASPIRIN 31640075740 Active Hope Benavidez MD PhD Active LEVAQUIN 750 MG ORAL TABLET 1 qd LEVAQUIN 750 MG ORAL TABLET 440194 LEVOFLOXACIN Inactive FLAGYL 500 MG ORAL TABLET 1 qid FLAGYL 500 MG ORAL TABLET 024145 METRONIDAZOLE Inactive MELOXICAM 15 MG ORAL TABLET 1 qd MELOXICAM 15 MG ORAL TABLET 331553 MELOXICAM Inactive SIMVASTATIN 40 MG ORAL TABLET 1 qd SIMVASTATIN 40 MG ORAL TABLET 462196 SIMVASTATIN Inactive PROZAC 20 MG ORAL CAPSULE 1 q d PROZAC 20 MG ORAL CAPSULE 278515 FLUOXETINE HCL Inactive DYAZIDE 37.5-25 MG ORAL CAPSULE 1 qd 5 DYAZIDE 37.5-25 MG ORAL CAPSULE 344761 TRIAMTERENE-HCTZ Inactive INNOPRAN XL 120 MG ORAL CAPSULE EXTENDED RELEASE 24 HO UR Take one by mouth daily INNOPRAN XL 120 MG ORAL CAPSULE EXTENDED RELEASE 24 HOUR PROPRANOLOL HCL SR BEADS Inactive PROMETHAZINE HCL 25 MG ORAL TABLET 1 Q. 4 hr. PRN 2013 PROMETHAZINE HCL 25 MG ORAL TABLET 097322 PROMETHAZINE HCL Inactive POTASSIUM CHLORIDE 20 MEQ ORAL PACKET by mouth twice a day prn 2 POTASSIUM CHLORIDE 20 MEQ ORAL PACKET 4921804 POTASSIUM CHLORIDE Inactive PHENADOZ 25 MG RECTAL SUPPOSITORY 1 every 4 hrs. PRN 2 PHENADOZ 25 MG RECTAL SUPPOSITORY 342835 PROMETHAZINE HCL Inactive ZOFRAN 8 MG ORAL TABLET 1 tab by mouth every 12 hours prn 4 ZOFRAN 8 MG ORAL TABLET 175522 ONDANSETRON HCL Inactive OMEPRAZOLE 20 MG ORAL CAPSULE DELAYED RELEASE 1 tablet by mo uth daily for GERD OMEPRAZOLE 20 MG ORAL CAPSULE DELAYED RELEASE 19 8051 OMEPRAZOLE Inactive CYCLOBENZAPRINE HCL 10 MG ORAL TABLET 1 tablet by mout h three times daily as needed for headaches CYCLOBENZAPRINE HCL 10 MG ORAL TABLET 469444 CYCLOBENZAPRINE HCL Inactive VITAMIN D3 4000 IU 1 tab 3 times daily VITAMIN D3 4000 IU Inactive PROPRANOLOL HCL 80 MG ORAL TABLET 1 tab tue. and thur. PROPRANOLOL HCL 80 MG ORAL TABLET 588057 PROPRANOLOL HCL Inacti ve CYANOCOBALAMIN 1000 MCG/ML INJECTION SOLUTION 1 injection ev ruben 2 weeks CYANOCOBALAMIN 1000 MCG/ML INJECTION SOLUTION 30 9594 CYANOCOBALAMIN Inactive MAGNESIUM GLUCONATE 250 MG ORAL TABLET 1 tab tid 20 23/10/23 MAGNESIUM GLUCONATE 250 MG ORAL TABLET 669314 MAGNESIUM GLUCONATE Inactive LOMOTIL 2.5-0.025 MG ORAL TABLET 1 tab by mouth prn 20 23/10/23 LOMOTIL 2.5-0.025 MG ORAL TABLET 3214139 DIPHENOXYLATE-ATROPINE Inac tive FLORANEX ORAL PACKET 1 pack three times daily, for bowel health FLORANEX ORAL PACKET 19726994849 LACTOBACILLUS Inactive IRON 325 (65 Fe) MG ORAL TABLET 1 every other day 2015 IRON 325 (65 Fe) MG ORAL TABLET 670217 FERROUS SULFATE Inactive FLAGYL 500 MG ORAL TABLET 1 pill by mouth three times daily, for diarrhea FLAGYL 500 MG ORAL TABLET 160611 METRONIDAZOLE I nactive BACTRIM DS 800-160 MG ORAL TABLET 1 pill by mouth twice claudio y, for UTI BACTRIM DS 800-160 MG ORAL TABLET 378208 SULFAMETHOXAZOLE-TRIMETHOPRIM Inactive Advance Directives Directive Description Start [...] ... - Chemistry sodium, serum 138 mmol/L 703-275 0319/12/15 potassium, serum 4.0 mmol/L 3.5-5.2 chloride, serum [...] - Chem istry sodium, serum 142 mmol/L 831-153 1205/04/19 carbon dioxide, venous blood 30.2 mmol/L 21.0-32 [...] 0.00-1.00 Encounters Code Encounter Date Provider Facility CPT-79675 Level 2 Est. Patient 14:58:26 CDT Kylie Lund [facility] CPT-03489 Level 3 Est. Patient 08:15:24 DRIVE IN WAITER/WAITRESS Kylie Lund [facility] CPT-44108 Level 2 Est. Patient 14:27:16 DRIVE IN WAITER/WAITRESS Kylie Lund [facility] CPT-62050 Level 3 Est. Patient 17:54:48 CDT Kylie Lund [facility] CPT-82654 Level 3 Est. Patient 16:26:30 CDT Kina blackmon [facility] CPT-23746 Level 3 New Patient 16:22:01 DRIVE IN WAITER/WAITRESS Adam Yates MD [facility] CPT-82129 Level 4 Est. Patient 17:00:48 CDT Kylie Lund [facility] CPT-83270 Level 3 Est. Patient 13:15:54 CDT Kylie boyd [facility] CPT-04291 Level 3 Est. Patient 09:10:11 CDT Kylie boyd [facility] CPT-92823 Level 4 Est. Patient 12:08:30 DRIVE IN WAITER/WAITRESS Hope cohn MD [facility] CPT-71328 Level 4 Est. Patient 19:08:42 DRIVE IN WAITER/WAITRESS Hope cohn MD [facility] CPT-77664 Level 4 Est. Patient 20:04:51 CDT Hope cohn MD [facility] CPT-21131 Level 3 New Patient 01:46:11 DRIVE IN WAITER/WAITRESS Hope landers MD [facility] Procedures Code Procedure Name Date Entry Date Standard Desc ription CPT-73087 Venipuncture Draw Fee 10:59:04 CDT CPT-00633 CMP - LAB USE ONLY 10:59:04 CDT CPT-85278 CBC with Diff - LAB USE ONLY 10:59:03 CDT 2 CPT-J0897 Prolia 60 mg 15:46:54 DRIVE IN WAITER/WAITRESS CPT-05859 Abx/Therapy Injection 15:46:54 DRIVE IN WAITER/WAITRESS CPT-58072 Microalbumin - LAB USE ONLY 09:41:32 DRIVE IN WAITER/WAITRESS 20 23/01/15 CPT-69849 Free T4 - LAB USE ONLY 09:41:32 DRIVE IN WAITER/WAITRESS CPT-14401 TSH - LAB USE ONLY 09:41:32 DRIVE IN WAITER/WAITRESS CPT-54780 BMP - LAB USE ONLY 09:41:32 DRIVE IN WAITER/WAITRESS CPT-12431 Venipuncture Draw Fee 09:41:32 DRIVE IN WAITER/WAITRESS CPT-85296 First Vx - Ix admin for Medicare patients 11:19:30 CDT CPT-20325 Fluzone High-Dose Intramuscular Suspension 12/07 11:19:30 CDT CPT-J0897 Prolia 60 mg 14:55:42 CDT CPT-25177 Abx/Therapy Injection 14:55:42 CDT CPT-35005 Bone Density - XRAY USE ONLY 10:27:12 CDT 2 CPT-G0439 Subsequent Annual Wellness Exam 17:54:53 CDT CPT-86117 Foot, left, comp min 3V - XRAY USE ONLY 12:22:49 CDT CPT-G0009 Administration of Pneumococcal Vaccine 3 12:18:00 CDT CPT-66964 Pneumovax 23 Injection Injectable 25 MCG /0.5ML 12:18:00 CDT CPT-J0897 Prolia 60 mg 14:14:16 DRIVE IN WAITER/WAITRESS CPT-13339 Abx/Therapy Injection 14:14:15 DRIVE IN WAITER/WAITRESS CPT-32633 Lipid - LAB USE ONLY 10:01:52 DRIVE IN WAITER/WAITRESS 2 CPT-59066 Calcium - LAB USE ONLY 10:01:51 DRIVE IN WAITER/WAITRESS CPT-12355 Venipuncture Draw Fee 10:01:51 DRIVE IN WAITER/WAITRESS CPT-LR Lesion Removal 16:22:01 DRIVE IN WAITER/WAITRESS CPT-01216 TSH - LAB USE ONLY 14:26:02 CDT CPT-28241 CMP - LAB USE ONLY 14:26:01 CDT CPT-21587 CBC with Diff - LAB USE ONLY 14:26:01 CDT 2 CPT-70928 Venipuncture Draw Fee 14:26:01 CDT CPT-94835 First Vx - Ix admin for Medicare patients 13:27:08 CDT CPT-06599 Fluzone High-Dose Intramuscular Suspension 11/26 13:27:08 CDT CPT-G0438 Initial Annual Wellness Exam 14:19:57 CD T CPT-G0009 Administration of Pneumococcal Vaccine 9 11:36:25 CDT CPT-41512 Prevnar 13 Intramuscular Suspension 1 1:36:25 CDT CPT-78779 Prevnar 13 Intramuscular Suspension 1 0:40:58 CDT CPT-J0897 Prolia 60 mg 10:37:16 CDT CPT-81850 Abx/Therapy Injection 10:37:16 CDT CPT-J0897 Prolia 60 mg 16:09:34 DRIVE IN WAITER/WAITRESS CPT-J0897 Prolia 60 mg 11:10:35 DRIVE IN WAITER/WAITRESS CPT-41768 Abx/Therapy Injection 11:10:35 DRIVE IN WAITER/WAITRESS CPT-000 Give Appropriate Flu Vaccine 17:01:15 DRIVE IN WAITER/WAITRESS 2 CPT-87132 Fluzone High Dose (65+) 15:03:08 DRIVE IN WAITER/WAITRESS 02/15 CPT-67173 Immunization Single Admin 15:03:08 DRIVE IN WAITER/WAITRESS 2014 CPT-OV Office Visit 15:58:06 CDT CPT-J0897 Prolia 60 mg 08:45:38 CDT CPT-34625 Abx/Therapy Injection 08:45:38 CDT CPT-J3420 Vitamin B12 1000mcg (Cyanocobalamin) 09:26:20 DRIVE IN WAITER/WAITRESS CPT-28200 Abx/Therapy Injection 09:26:20 DRIVE IN WAITER/WAITRESS CPT-J3420 Vitamin B12 1000mcg (Cyanocobalamin) 09:44:40 DRIVE IN WAITER/WAITRESS CPT-26178 Abx/Therapy Injection 09:44:40 DRIVE IN WAITER/WAITRESS CPT-J3420 Vitamin B12 1000mcg (Cyanocobalamin) 09:15:54 DRIVE IN WAITER/WAITRESS CPT-91081 Abx/Therapy Injection 09:15:54 DRIVE IN WAITER/WAITRESS CPT-J3420 Vitamin B12 1000mcg (Cyanocobalamin) 09:46:44 DRIVE IN WAITER/WAITRESS CPT-47005 Abx/Therapy Injection 09:46:44 DRIVE IN WAITER/WAITRESS CPT-J3420 Vitamin B12 1000mcg (Cyanocobalamin) 09:47:34 DRIVE IN WAITER/WAITRESS CPT-72966 Abx/Therapy Injection 09:47:34 DRIVE IN WAITER/WAITRESS CPT-J3420 Vitamin B12 1000mcg (Cyanocobalamin) 14:35:50 DRIVE IN WAITER/WAITRESS CPT-J3420 Vitamin B12 1000mcg (Cyanocobalamin) 09:25:05 DRIVE IN WAITER/WAITRESS CPT-87760 Abx/Therapy Injection 09:25:05 DRIVE IN WAITER/WAITRESS CPT-G0008 Administration of Influenza Virus Vaccine 13:36:47 CDT CPT-88043 Fluzone High-Dose Intramuscular Suspension 11/15 13:36:47 CDT CPT-J0897 Prolia 60 mg 08:50:41 CDT CPT-24877 Abx/Therapy Injection 08:50:41 CDT CPT-19247 Bone Density 12:06:12 CDT CPT-50211 Bone Density 08:54:40 CDT CPT-OV Office Visit 15:37:02 CDT CPT-46854 Postop F/U Visit 15:47:49 CDT CPT-53619 Postop F/U Visit 15:21:02 CDT CPT-TCM Transitional Care Mgmt-High 07:52:27 CDT 20 20/06/01 CPT-34734 Venipuncture Draw Fee 13:51:18 CDT CPT-99216 Venipuncture Draw Fee 10:14:55 DRIVE IN WAITER/WAITRESS CPT-78739 Venipuncture Draw Fee 13:39:45 DRIVE IN WAITER/WAITRESS CPT-OV Office Visit 15:11:22 DRIVE IN WAITER/WAITRESS CPT-47296 Venipuncture Draw Fee 09:20:49 DRIVE IN WAITER/WAITRESS CPT-28268 Venipuncture Draw Fee 16:52:15 DRIVE IN WAITER/WAITRESS CPT-60442 Venipuncture Draw Fee 10:37:24 DRIVE IN WAITER/WAITRESS CPT-33566 Venipuncture Draw Fee 08:21:21 DRIVE IN WAITER/WAITRESS CPT-03445 Venipuncture Draw Fee 08:30:20 DRIVE IN WAITER/WAITRESS CPT-17353 Venipuncture Draw Fee 14:53:21 DRIVE IN WAITER/WAITRESS CPT-76117 Venipuncture Draw Fee 09:40:56 DRIVE IN WAITER/WAITRESS CPT-27818 Venipuncture Draw Fee 10:30:47 DRIVE IN WAITER/WAITRESS CPT-46635 Venipuncture Draw Fee 10:46:17 DRIVE IN WAITER/WAITRESS CPT-78889 Venipuncture Draw Fee 11:12:45 DRIVE IN WAITER/WAITRESS CPT-32326 Venipuncture Draw Fee 09:53:33 DRIVE IN WAITER/WAITRESS CPT-66508 Venipuncture Draw Fee 11:53:51 DRIVE IN WAITER/WAITRESS CPT-16628 Venipuncture Draw Fee 10:33:50 DRIVE IN WAITER/WAITRESS CPT-77059 Venipuncture Draw Fee 10:05:01 DRIVE IN WAITER/WAITRESS CPT-53616 Venipuncture Draw Fee 14:32:52 DRIVE IN WAITER/WAITRESS CPT-61359 Venipuncture Draw Fee 09:46:13 DRIVE IN WAITER/WAITRESS CPT-29284 Venipuncture Draw Fee 11:34:27 DRIVE IN WAITER/WAITRESS CPT-92078 Venipuncture Draw Fee 13:17:16 DRIVE IN WAITER/WAITRESS CPT-65852 Venipuncture Draw Fee 12:05:39 CDT CPT-22531 Venipuncture Draw Fee 12:49:12 CDT CPT-47938 Venipuncture Draw Fee 12:37:18 CDT CPT-56234 Venipuncture Draw Fee 10:57:11 CDT CPT-83657 Venipuncture Draw Fee 13:47:40 CDT CPT-54883 Venipuncture Draw Fee 10:02:17 CDT CPT-74468 TB Tubersol 17:32:32 CDT CPT-OV Office Visit 16:21:53 CDT CPT-OV Office Visit 15:49:22 CDT CPT-OV Office Visit 17:16:31 CDT CPT-OV Office Visit 10:43:31 CDT
--- OUTSIDE RECORDS SUMMARY | 2019-02-09 12:38 | XMS REPORT | Clinical Summary ---
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 Kelsy DAVIDSON Carcinoma in situ of breast ADENOCARCINOMA, ASCENDING [...] Sebaceous cyst, scalp 706.2 Resolved Kylie Holt ACQUISITION ANALYST Sebaceous cyst Cervical lymphadenopathy, anterior, left 785.6 Active Kylie Holt ACQUISITION ANALYST Enlargement of lymph nodes Need for prophylactic vaccination and inoculation against in fluenza V04.81 Active Citlaly Watkins RMA Need for prophylactic vaccination and inoculation against influenza ABDOMINAL PAIN, RIGHT LOWER QUADRANT ICD-789.03 Inactive Kina Joshua ACQUISITION ANALYST ADENOCARCINOMA, COLON, 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 Dick Yates MD ABDOMINAL PAIN, GENERALIZED ICD-789.07 Inactive Hope Benavidez MD PhD FEVER UNSPECIFIED ICD-780.60 Inactive Hope cohn MD PhD UNSPECIFIED VENOUS INSUFFICIENCY ICD-459.81 [facility]thren ctive Adam Yates MD ADENOCARCINOMA, ASCENDING COLON [...] Sebaceous cyst, scalp ICD-706.2 Inactive Tracy Holt ACQUISITION ANALYST Medication List Medication Instructions Start Date Stop Date Generic Name NDC Status Provider Patient Instruction LOMOTIL 2.5-0.025 MG TABS 1 tab by mouth prn 4 DIPHENOXYLATE-ATROPINE 75334879595 No Longer Active Kylie Lundum ACQUISITION ANALYST Active MAGNESIUM GLUCONATE 250 MG TABS 1 tab tid 4 MAGNESIUM GLUCONATE 52500970278 No Longer Active Kylie Escalonakum ACQUISITION ANALYST Active CYANOCOBALAMIN 1000 MCG/ML INJ SOLN 1 injection every 2 weeks 20 20/01/03 CYANOCOBALAMIN 51795874380 No Longer Active Kylie Holt ACQUISITION ANALYST Active ATENOLOL 25 MG ORAL TABS 1/2 pill by mouth daily, for headac hes, blood pressure ATENOLOL 58908348584 Active Courtney Zaman ACQUISITION ANALYST Active PROPRANOLOL HCL 80 MG TABS 1 tab tue. and thur. 04/10 PROPRANOLOL HCL 69970250131 No Longer Active Hope Benavidez MD PhD A ctive IRON 325 (65 FE) MG TABS 1 every other day FERROUS SULFATE 75890590586 Active Hope Benavidez MD PhD Active VITAMIN D3 4000 IU 1 tab 3 times daily VITAMIN D3 4000 IU No Longer Active Hope Benavidez MD PhD Active BACTRIM DS 800-160 MG TABS 1 pill by mouth twice daily, for UTI SULFAMETHOXAZOLE-TRIMETHOPRIM 88696061037 No Longer Active Lisa Benavidez MD PhD Active PROLIA 60 MG/ML SOLN 1 shot every 6 months for osteoprosis DENOSUMAB 48421718061 Active Hope Benavidez MD PhD Active CALCIUM + D + K 750-500-40 MG-UNT-MCG TABS 1 tab by mouth tw ice daily CALCIUM-VITAMIN D-VITAMIN K 12158319685 Active Hope landers MD PhD Active DAILY VALUE MULTIVITAMIN TABS 1 tab by mouth twice daily MULTIPLE VITAMIN 23176059283 Active Hope Benavidez MD PhD Active FISH OIL 306 MG CAPS 1 tab by mouth three times daily OMEGA-3 FATTY ACIDS 55940302027 Active Hope Benavidez MD PhD Active LUTEIN 10 MG TABS 1 tab daily LUTEIN 40137714479 Act cash Hope Benavidez MD PhD Active FLORANEX PACK 1 pack three times daily, for bowel health LACTOBACILLUS 44962265690 Active Hope Benavidez MD PhD Active TRIAMTERENE-HCTZ 37.5-25 MG TABS 1 tab by mouth daily TRIAMTERENE-HCTZ 97450066495 Active Kylie Holt ACQUISITION ANALYST Active CYCLOBENZAPRINE HCL 10 MG TABS 1 tablet by mouth three times daily as needed for headaches CYCLOBENZAPRINE HCL 68019872905 No Longe r Active Adam Yates MD Active OMEPRAZOLE 20 MG CPDR 1 tablet by mouth daily for GERD OMEPRAZOLE 35000642028 No Longer Active Adam Yates MD A ctive ZOFRAN 8 MG TABS 1 tab by mouth every 12 hours prn 201 05/16/09 ONDANSETRON HCL 40389369519 No Longer Active Adam Yates MD Active PHENADOZ 25 MG SUPP 1 every 4 hrs. PRN PROMETHA ZINE HCL 96128853306 No Longer Active Adam Yates MD Active POTASSIUM CHLORIDE 20 MEQ PACK by mouth twice a day prn POTASSIUM CHLORIDE 15454256889 No Longer Active Adam Yates MD Active PROMETHAZINE HCL 25 MG TABS 1 Q. 4 hr. PRN PROM ETHAZINE HCL 27650941805 No Longer Active Adam Yates MD Active INNOPRAN XL 120 MG [id number] Take one by mouth daily 2 PROPRANOLOL HCL SR BEADS 13956894642 No Longer Active Adam Yates MD A ctive FLAGYL 500 MG TABS 1 pill by mouth three times daily, for diarrh ea METRONIDAZOLE 06131382316 No Longer Active Hope Benavidez MD PhD Active DYAZIDE 37.5-25 MG CAPS 1 qd TRIAMTERENE-HC TZ 10021427399 No Longer Active Hope Benavidez MD PhD Active PROZAC 20 MG CAPS 1 q d FLUOXETINE HCL 92075 267149 No Longer Active Hope Benavidez MD PhD Active SIMVASTATIN 40 MG TABS 1 qd SIMVASTATIN 004 96518116 No Longer Active Adam Yates MD Active MELOXICAM 15 MG TABS 1 qd MELOXICAM 8185488 5741 No Longer Active Adam Yates MD Active IMODIUM A-D 2 MG TABS 2 onset at diarrhea and prn. LOPERAMIDE HCL 01916713504 Active Hope Benavidez MD PhD Active EXCEDRIN EXTRA STRENGTH 250-250-65 MG TABS 1-2 q6h PRN headache 201 04/16/21 [id number] 00823373166 Active Hope Benavidez MD PhD Active FLAGYL 500 MG TABS 1 qid METRONIDAZOLE 52672 715923 No Longer Active Adam Yates MD Active LEVAQUIN 750 MG TABS 1 qd LEVOFLOXACIN 5486 8868041 No Longer Active Adam Yates MD Active ADULT ASPIRIN LOW STRENGTH 81 MG TBDP 1 qd A SPIRIN 49018446961 Active Hope Benavidez MD PhD Active LEVAQUIN 750 MG TABS 1 qd LEVAQUIN 750 MG T ABS 540691 LEVOFLOXACIN Inactive FLAGYL 500 MG TABS 1 qid FLAGYL 500 MG TABS 243972 METRONIDAZOLE Inactive MELOXICAM 15 MG TABS 1 qd MELOXICAM 15 MG T ABS 167465 MELOXICAM Inactive SIMVASTATIN 40 MG TABS 1 qd SIMVASTATIN 40 MG TABS 342858 SIMVASTATIN Inactive PROZAC 20 MG CAPS 1 q d PROZAC 20 MG CAPS 31 0385 FLUOXETINE HCL Inactive DYAZIDE 37.5-25 MG CAPS 1 qd DYAZIDE 37.5 -25 MG CAPS 763242 TRIAMTERENE-HCTZ Inactive INNOPRAN XL 120 MG [id number] Take one by mouth daily 2 INNOPRAN XL 120 MG [id number] PROPRANOLOL HCL SR BEADS Inactive PROMETHAZINE HCL 25 MG TABS 1 Q. 4 hr. PRN PROMETHAZINE HCL 25 MG TABS 926713 PROMETHAZINE HCL Inactive POTASSIUM CHLORIDE 20 MEQ PACK by mouth twice a day prn POTASSIUM CHLORIDE 20 MEQ PACK 577639 POTASSIUM CHLORIDE Inactive PHENADOZ 25 MG SUPP 1 every 4 hrs. PRN PHENADOZ 2 5 MG SUPP 281537 PROMETHAZINE HCL Inactive ZOFRAN 8 MG TABS 1 tab by mouth every 12 hours prn 201 05/16/09 ZOFRAN 8 MG TABS 340033 ONDANSETRON HCL Inactive OMEPRAZOLE 20 MG CPDR 1 tablet by mouth daily for GERD OMEPRAZOLE 20 MG CPDR 268394 OMEPRAZOLE Inactive CYCLOBENZAPRINE HCL 10 MG TABS 1 tablet by mouth three times daily as needed for headaches CYCLOBENZAPRINE HCL 10 MG TABS 961167 CYCLOBENZAPRINE HCL Inactive VITAMIN D3 4000 IU 1 tab 3 times daily VITAMIN D3 4000 IU Inactive PROPRANOLOL HCL 80 MG TABS 1 tab tue. and thur. 04/10 PROPRANOLOL HCL 80 MG TABS 439895 PROPRANOLOL HCL Inactive CYANOCOBALAMIN 1000 MCG/ML INJ SOLN 1 injection every 2 weeks 20 20/01/03 CYANOCOBALAMIN 1000 MCG/ML INJ SOLN 904933 CYANOCOBALAM IN Inactive MAGNESIUM GLUCONATE 250 MG TABS 1 tab tid 4 MAGNESIUM GLUCONATE 250 MG TABS 930413 MAGNESIUM GLUCONATE Inactive LOMOTIL 2.5-0.025 MG TABS 1 tab by mouth prn 4 LOMOTIL 2.5- 0.025 MG TABS 9142323 DIPHENOXYLATE-ATROPINE Inactive FLAGYL 500 MG TABS 1 pill by mouth three times daily, for diarrh ea FLAGYL 500 MG TABS 750180 METRONIDAZOLE Inactive BACTRIM DS 800-160 MG TABS 1 pill by mouth twice daily, for UTI BACTRIM DS 800-160 MG TABS 265924 SULFAMETHOXAZOLE-TRIM ETHOPRIM Inactive Advance Directives Directive Description [...] Panel - Chemistry sodium, serum 142 mmol/L 618-921 7460/04/20 carbon dioxide, venous blood 34.7 mmol/L 21.0-32 .0 potassium, serum 3.5 mmol/L 3.5-5.2 chloride, serum 102 mmol/L 98-107 blood glucose 102 mg/dL 65-110 urea nitrogen, blood 24 mg/dL 7-18 creatinine, serum 1.37 mg/dL 0.55-1.30 alanine aminotransferase (SGPT), serum 72 U/L -78 aspartate aminotransferase (SGOT), serum 44 U/L 15-37 calcium, serum 9.0 mg/dL 8.5-10.1 bilirubin, serum, total 0.50 mg/dL 0.00-1.00 sodium, serum 138 mmol/L 084-519 3910/10/23 carbon dioxide, venous blood 29.5 mmol/L 21.0-32 .0 potassium, serum 3.7 mmol/L 3.5-5.2 chloride, serum 100 mmol/L 98-107 blood glucose 93 mg/dL 65-110 urea nitrogen, blood 29 mg/dL 7-18 creatinine, serum 1.25 mg/dL 0.55-1.30 alanine aminotransferase (SGPT), serum 50 U/L aspartate aminotransferase (SGOT), serum 34 U/L 15-37 [...] 11 .6-14.8 platelet count 189 10^3/MM^3 10*3/mm3 460-531 2564/04/20 leukocyte count, blood 5.9 10^3/MM^3 10*3/mm3 4.6-10.2 [...] 1.24 m[iU]/mL 0.36-3.74 cholesterol, serum 227 mg/dL 583-566 1052/10/23 triglyceride, serum, fasting 144 mg/dL 30-200 HDL cholesterol, serum 60 mg/dL 32-96 LDL cholesterol, serum 138 mg/dL 0-130 Lab Report: Lipid Panel, MICROALBUMIN, T hyroid Stimulating Hormone (L) - Lab microalbumin, urine 10 0-19 Encounters Code Encounter Date Provider Facility CPT-79066 Level 3 Est. Patient 13:15:54 CDT Kylie Lund [facility] CPT-10224 Level 3 Est. Patient 09:10:11 CDT Kylie Lund [facility] CPT-52529 Level 4 Est. Patient 12:08:30 DIRECTOR REVENUE Hope cohn MD PhD [facility] CPT-64158 Level 4 Est. Patient 19:08:42 DIRECTOR REVENUE Hope cohn MD PhD [facility] CPT-67110 Level 4 Est. Patient 20:04:51 CDT Hope cohn MD PhD [facility] CPT-72778 Level 3 New Patient 01:46:11 DIRECTOR REVENUE Hope landers MD PhD [facility] Procedures Code Procedure Name Date Entry Date Standard Desc ription CPT-J0897 Prolia 60 mg 16:09:34 DIRECTOR REVENUE CPT-J0897 Prolia 60 mg 11:10:35 DIRECTOR REVENUE CPT-62914 Abx/Therapy Injection 11:10:35 DIRECTOR REVENUE CPT-000 Give Appropriate Flu Vaccine 17:01:15 DIRECTOR REVENUE 2 CPT-18292 Fluzone High Dose (65+) 15:03:08 DIRECTOR REVENUE 02/15 CPT-41392 Immunization Single Admin 15:03:08 DIRECTOR REVENUE 2014 CPT-OV Office Visit 15:58:06 CDT CPT-J0897 Prolia 60 mg 08:45:38 CDT CPT-75682 Abx/Therapy Injection 08:45:38 CDT CPT-J3420 Vitamin B12 1000mcg (Cyanocobalamin) 09:26:20 DIRECTOR REVENUE CPT-33033 Abx/Therapy Injection 09:26:20 DIRECTOR REVENUE CPT-J3420 Vitamin B12 1000mcg (Cyanocobalamin) 09:44:40 DIRECTOR REVENUE CPT-66819 Abx/Therapy Injection 09:44:40 DIRECTOR REVENUE CPT-J3420 Vitamin B12 1000mcg (Cyanocobalamin) 09:15:54 DIRECTOR REVENUE CPT-44563 Abx/Therapy Injection 09:15:54 DIRECTOR REVENUE CPT-J3420 Vitamin B12 1000mcg (Cyanocobalamin) 09:46:44 DIRECTOR REVENUE CPT-52005 Abx/Therapy Injection 09:46:44 DIRECTOR REVENUE CPT-J3420 Vitamin B12 1000mcg (Cyanocobalamin) 09:47:34 DIRECTOR REVENUE CPT-97295 Abx/Therapy Injection 09:47:34 DIRECTOR REVENUE CPT-J3420 Vitamin B12 1000mcg (Cyanocobalamin) 14:35:50 DIRECTOR REVENUE CPT-J3420 Vitamin B12 1000mcg (Cyanocobalamin) 09:25:05 DIRECTOR REVENUE CPT-17182 Abx/Therapy Injection 09:25:05 DIRECTOR REVENUE CPT-G0008 Administration of Influenza Virus Vaccine 13:36:47 CDT CPT-45395 Fluzone High-Dose Intramuscular Suspension 11/15 13:36:47 CDT CPT-J0897 Prolia 60 mg 08:50:41 CDT CPT-05064 Abx/Therapy Injection 08:50:41 CDT CPT-38993 Bone Density 12:06:12 CDT CPT-53908 Bone Density 08:54:40 CDT CPT-OV Office Visit 15:37:02 CDT CPT-73601 Postop F/U Visit 15:47:49 CDT CPT-48392 Postop F/U Visit 15:21:02 CDT [facility] Transitional Care Mgmt-High 07:52:27 CDT 20 20/06/01 CPT-95196 Venipuncture Draw Fee 13:51:18 CDT CPT-73078 Venipuncture Draw Fee 10:14:55 DIRECTOR REVENUE CPT-73307 Venipuncture Draw Fee 13:39:45 DIRECTOR REVENUE CPT-OV Office Visit 15:11:22 DIRECTOR REVENUE CPT-11960 Venipuncture Draw Fee 09:20:49 DIRECTOR REVENUE CPT-88882 Venipuncture Draw Fee 16:52:15 DIRECTOR REVENUE CPT-19273 Venipuncture Draw Fee 10:37:24 DIRECTOR REVENUE CPT-55526 Venipuncture Draw Fee 08:21:21 DIRECTOR REVENUE CPT-36335 Venipuncture Draw Fee 08:30:20 DIRECTOR REVENUE CPT-95663 Venipuncture Draw Fee 14:53:21 DIRECTOR REVENUE CPT-49199 Venipuncture Draw Fee 09:40:56 DIRECTOR REVENUE CPT-03866 Venipuncture Draw Fee 10:30:47 DIRECTOR REVENUE CPT-72497 Venipuncture Draw Fee 10:46:17 DIRECTOR REVENUE CPT-08473 Venipuncture Draw Fee 11:12:45 DIRECTOR REVENUE CPT-95422 Venipuncture Draw Fee 09:53:33 DIRECTOR REVENUE CPT-70772 Venipuncture Draw Fee 11:53:51 DIRECTOR REVENUE CPT-41816 Venipuncture Draw Fee 10:33:50 DIRECTOR REVENUE CPT-10200 Venipuncture Draw Fee 10:05:01 DIRECTOR REVENUE CPT-91705 Venipuncture Draw Fee 14:32:52 DIRECTOR REVENUE CPT-83695 Venipuncture Draw Fee 09:46:13 DIRECTOR REVENUE CPT-74188 Venipuncture Draw Fee 11:34:27 DIRECTOR REVENUE CPT-06032 Venipuncture Draw Fee 13:17:16 DIRECTOR REVENUE CPT-42439 Venipuncture Draw Fee 12:05:39 CDT CPT-31194 Venipuncture Draw Fee 12:49:12 CDT CPT-26620 Venipuncture Draw Fee 12:37:18 CDT CPT-16736 Venipuncture Draw Fee 10:57:11 CDT CPT-18722 Venipuncture Draw Fee 13:47:40 CDT CPT-30377 Venipuncture Draw Fee 10:02:17 CDT CPT-63928 TB Tubersol 17:32:32 CDT CPT-OV Office Visit 16:21:53 CDT CPT-OV Office Visit 15:49:22 CDT CPT-OV Office Visit 17:16:31 CDT CPT-OV Office Visit 10:43:31 CDT
--- OUTSIDE RECORDS SUMMARY | 2019-02-09 12:39 | XMS REPORT | Clinical Summary ---
Author Author Admin, Florecita Munoz Organization [facility] Address Unknown Phone Unavailable Allergies, Adverse Reactions, [...] Sebaceous cyst, scalp 706.2 Resolved Kylie Holt [employer] Sebaceous cyst Cervical lymphadenopathy, anterior, left 785.6 Resolv ed Kylie Holt [employer] Enlargement of lymph nodes Need for prophylactic vaccination and inoculation against in fluenza V04.81 Resolved Adam Yates MD Need for prophylactic vaccination and inoculation against influenza Preventive health care V70.0 Active Kylie Holt [employer] TE[employer] Routine general medical examination at a health care facility Thyroid nodule, left 241.0 Active Kylie Holt A PRN Nontoxic uninodular goiter Screening mammogram V76.12 Active Kylie Holt AP RN Other screening mammogram Mandy 706.2 Active Adam Yates MD Sebaceous cyst Colon cancer, ascending 153.6 Active Kelsy F aux RMA Malignant neoplasm of ascending colon ABDOMINAL PAIN, RIGHT LOWER QUADRANT ICD-789.03 Inactive Kina Joshua [employer] TE[employer] ADENOCARCINOMA, COLON, 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 Dick Yates MD ABDOMINAL PAIN, GENERALIZED ICD-789.07 Inactive Hope Benavidez MD PhD FEVER UNSPECIFIED ICD-780.60 Inactive Hope cohn MD PhD UNSPECIFIED VENOUS INSUFFICIENCY ICD-459.81 Elda ctive Adam Yates MD ADENOCARCINOMA, 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 Inac tive Hope Benavidez MD PhD Hyperkalemia ICD-276.7 Inactive Hope Benavidez MD PhD GERD ICD-530.81 Inactive Kylie Holt [employer] 2015 Health maintenance exam ICD-V70.0 Bam Yates MD Anemia ICD-285.9 Inactive Kylie Holt [employer] 07/24 Weakness ICD-780.79 Inactive Hope Benavidez MD [...] Sebaceous cyst, scalp ICD-706.2 Inactive Tracy Holt [employer] Cervical lymphadenopathy, anterior, left ICD-785.6 Inactive Kylie Holt [employer] TE[employer] Need for prophylactic vaccination and inoculation against in fluenza ICD-V04.81 Inactive Adam Yates MD Colon cancer ICD-153.9 Bam luna MD Medication List Medication Instructions Start Date Stop Date Generic Name NDC Status Provider Patient Instruction COQ10 100 MG ORAL CAPS 1 daily COENZYME Q10 [id number] 20 Active JudLETY Haley Active VITAMIN D3 2000 UNIT ORAL CAPS Melaleuca-One daily CHOLECALCIFEROL 95252650763 Active Kylie Holt [employer] TESTER Active PROBIOTIC DAILY ORAL CAPS Take one daily PROBIOTIC PRODUCT 89289351151 Active Kylie Lundum [employer] TESTER Active IRON 325 (65 FE) MG TABS 1 every other day FERR OUS SULFATE 91571760779 No Longer Active Kylie Lundum [employer] TESTER Active FLORANEX PACK 1 pack three times daily, for bowel health LACTOBACILLUS 88279458873 No Longer Active Kylie Holt [employer] TE[employer] Active LOMOTIL 2.5-0.025 MG TABS 1 tab by mouth prn 4 DIPHENOXYLATE-ATROPINE 21897672494 No Longer Active Kylie Lundum [employer] TE[employer] Active MAGNESIUM GLUCONATE 250 MG TABS 1 tab tid 4 MAGNESIUM GLUCONATE 71041583416 No Longer Active Kylie Holt [employer] SYSTEM TESTER Active CYANOCOBALAMIN 1000 MCG/ML INJ SOLN 1 injection every 2 weeks 20 20/01/03 CYANOCOBALAMIN 88342765082 No Longer Active Kylie Lundum [employer] TE[employer] Active ATENOLOL 25 MG ORAL TABS 1/2 pill by mouth daily, for headac hes, blood pressure ATENOLOL 44400802308 Active Kylie Lundum [employer] TE[employer] Active PROPRANOLOL HCL 80 MG TABS 1 tab tue. and thur. 04/10 PROPRANOLOL HCL 90743838065 No Longer Active Hope Benavidez MD PhD A ctive VITAMIN D3 4000 IU 1 tab 3 times daily VITAMIN D3 4000 IU No Longer Active Hope Benavidez MD PhD Active BACTRIM DS 800-160 MG TABS 1 pill by mouth twice daily, for UTI SULFAMETHOXAZOLE-TRIMETHOPRIM 92996760576 No Longer Active A attila Benavidez MD PhD Active PROLIA 60 MG/ML SOLN 1 shot every 6 months for osteoprosis DENOSUMAB 95906333746 Active Hope Benavidez MD PhD Active CALCIUM + D + K 750-500-40 MG-UNT-MCG TABS 1 tab by mouth tw ice daily CALCIUM-VITAMIN D-VITAMIN K 07821266105 Active Hope landers MD PhD Active DAILY VALUE MULTIVITAMIN TABS 1 tab by mouth twice daily MULTIPLE VITAMIN 87152511021 Active Hope Benavidez MD PhD Active FISH OIL 306 MG CAPS 1 tab by mouth three times daily OMEGA-3 FATTY ACIDS 70225131562 Active Hope Benavidez MD PhD Active LUTEIN 10 MG TABS 1 tab daily LUTEIN 15618535530 Act cash Hope Benavidez MD PhD Active TRIAMTERENE-HCTZ 37.5-25 MG TABS 1 tab by mouth daily TRIAMTERENE-HCTZ 33497706089 Active Kylie Holt [employer] TE[employer] Active CYCLOBENZAPRINE HCL 10 MG TABS 1 tablet by mouth three times daily as needed for headaches CYCLOBENZAPRINE HCL 39166791426 No Longe r Active Adam Yates MD Active OMEPRAZOLE 20 MG CPDR 1 tablet by mouth daily for GERD OMEPRAZOLE 89556378081 No Longer Active Adam Yates MD A ctive ZOFRAN 8 MG TABS 1 tab by mouth every 12 hours prn 201 05/16/09 ONDANSETRON HCL 23703149025 No Longer Active Adam Yates MD Active PHENADOZ 25 MG SUPP 1 every 4 hrs. PRN PROMETHA ZINE HCL 25683646384 No Longer Active Adam Yates MD Active POTASSIUM CHLORIDE 20 MEQ PACK by mouth twice a day prn POTASSIUM CHLORIDE 94471489024 No Longer Active Adam Yates MD Active PROMETHAZINE HCL 25 MG TABS 1 Q. 4 hr. PRN PROM ETHAZINE HCL 40987306334 No Longer Active Adam Yates MD Active INNOPRAN XL 120 MG [id number] Take one by mouth daily 2 PROPRANOLOL HCL SR BEADS 45161299352 No Longer Active Adam Yates MD A ctive FLAGYL 500 MG TABS 1 pill by mouth three times daily, for diarrh ea METRONIDAZOLE 26946356813 No Longer Active Hope Benavidez MD PhD Active DYAZIDE 37.5-25 MG CAPS 1 qd TRIAMTERENE-HC TZ 68501861885 No Longer Active Hope Benavidez MD PhD Active PROZAC 20 MG CAPS 1 q d FLUOXETINE HCL 29334 224474 No Longer Active Hope Benavidez MD PhD Active SIMVASTATIN 40 MG TABS 1 qd SIMVASTATIN 004 60327309 No Longer Active Adam Yates MD Active MELOXICAM 15 MG TABS 1 qd MELOXICAM 3382753 8790 No Longer Active Adam Yates MD Active IMODIUM A-D 2 MG TABS 2 onset at diarrhea and prn. LOPERAMIDE HCL 72059379277 Active Hope Benavidez MD PhD Active EXCEDRIN EXTRA STRENGTH 250-250-65 MG TABS 1-2 q6h PRN headache 201 04/16/21 [id number] 41906008926 Active Hope Benavidez MD PhD Active FLAGYL 500 MG TABS 1 qid METRONIDAZOLE 77462 378832 No Longer Active Adam Yates MD Active LEVAQUIN 750 MG TABS 1 qd LEVOFLOXACIN 5486 1377191 No Longer Active Adam Yates MD Active ADULT ASPIRIN LOW STRENGTH 81 MG TBDP 1 qd A SPIRIN 48734315923 Active Hope Benavidez MD PhD Active LEVAQUIN 750 MG TABS 1 qd LEVAQUIN 750 MG T ABS 524346 LEVOFLOXACIN Inactive FLAGYL 500 MG TABS 1 qid FLAGYL 500 MG TABS 266709 METRONIDAZOLE Inactive MELOXICAM 15 MG TABS 1 qd MELOXICAM 15 MG T ABS 003022 MELOXICAM Inactive SIMVASTATIN 40 MG TABS 1 qd SIMVASTATIN 40 MG TABS 168018 SIMVASTATIN Inactive PROZAC 20 MG CAPS 1 q d PROZAC 20 MG CAPS 31 0385 FLUOXETINE HCL Inactive DYAZIDE 37.5-25 MG CAPS 1 qd DYAZIDE 37.5 -25 MG CAPS 860423 TRIAMTERENE-HCTZ Inactive INNOPRAN XL 120 MG [id number] Take one by mouth daily 2 INNOPRAN XL 120 MG [id number] PROPRANOLOL HCL SR BEADS Inactive PROMETHAZINE HCL 25 MG TABS 1 Q. 4 hr. PRN PROMETHAZINE HCL 25 MG TABS 937835 PROMETHAZINE HCL Inactive POTASSIUM CHLORIDE 20 MEQ PACK by mouth twice a day prn POTASSIUM CHLORIDE 20 MEQ PACK 5918390 POTASSIUM CHLORIDE Inactive PHENADOZ 25 MG SUPP 1 every 4 hrs. PRN PHENADOZ 2 5 MG SUPP 127255 PROMETHAZINE HCL Inactive ZOFRAN 8 MG TABS 1 tab by mouth every 12 hours prn 201 05/16/09 ZOFRAN 8 MG TABS 961748 ONDANSETRON HCL Inactive OMEPRAZOLE 20 MG CPDR 1 tablet by mouth daily for GERD OMEPRAZOLE 20 MG CPDR 608391 OMEPRAZOLE Inactive CYCLOBENZAPRINE HCL 10 MG TABS 1 tablet by mouth three times daily as needed for headaches CYCLOBENZAPRINE HCL 10 MG TABS 955458 CYCLOBENZAPRINE HCL Inactive VITAMIN D3 4000 IU 1 tab 3 times daily VITAMIN D3 4000 IU Inactive PROPRANOLOL HCL 80 MG TABS 1 tab tue. and thur. 04/10 PROPRANOLOL HCL 80 MG TABS 405378 PROPRANOLOL HCL Inactive CYANOCOBALAMIN 1000 MCG/ML INJ SOLN 1 injection every 2 weeks 20 20/01/03 CYANOCOBALAMIN 1000 MCG/ML INJ SOLN 590773 CYANOCOBALAM IN Inactive MAGNESIUM GLUCONATE 250 MG TABS 1 tab tid 4 MAGNESIUM GLUCONATE 250 MG TABS 727327 MAGNESIUM GLUCONATE Inactive LOMOTIL 2.5-0.025 MG TABS 1 tab by mouth prn 4 LOMOTIL 2.5- 0.025 MG TABS 8332243 DIPHENOXYLATE-ATROPINE Inactive FLORANEX PACK 1 pack three times daily, for bowel health FLORANEX PACK LACTOBACILLUS Inactive IRON 325 (65 FE) MG TABS 1 every other day IRON 325 (65 FE) MG TABS 170443 FERROUS SULFATE Inactive FLAGYL 500 MG TABS 1 pill by mouth three times daily, for diarrh ea FLAGYL 500 MG TABS 736796 METRONIDAZOLE Inactive BACTRIM DS 800-160 MG TABS 1 pill by mouth twice daily, for UTI BACTRIM DS 800-160 MG TABS 815889 SULFAMETHOXAZOLE-TRIM ETHOPRIM Inactive Advance Directives Directive Description [...] 11 .0-15.0 platelet count 157 THOUSAND/UL 10*3/mm3 747-083 3309/04/20 mean platelet volume 8.9 fL 7.5-12.5 Lab Report: CBC W/DIFF, Comp. Metabolic Panel, Thyroid Stimulating Hormo ... - Chemistry sodium, serum 139 mmol/L 393-199 7442/10/20 carbon dioxide, venous blood 32.2 mmol/L 21.0-32 [...] - Chemi stry cholesterol, serum 200 mg/dL 960-379 5094/11/22 triglyceride, serum, fasting 129 mg/dL 30-200 HDL cholesterol, serum 56 mg/dL 32-96 LDL cholesterol, serum 118 mg/dL 0-130 calcium, serum 9.0 mg/dL 8.5-10.1 Lab Report: MicroAlb Random w/creat/6517 - Urinalysis microalbumin/total urine volume 8 mg/L Units converted. See lab report for original value. microalbumin/creatinine ratio, urine 15 MCG/MG CREAT mg/L <30 Encounters Code Encounter Date Provider Facility CPT-08267 Level 3 Est. Patient 16:26:30 CDT Kina blackmon [facility] CPT-11375 Level 3 New Patient 16:22:01 DATA WAREHOUSING MANAGER Adam Yates MD [facility] CPT-11430 Level 4 Est. Patient 17:00:48 CDT Kylie Lund [facility] CPT-71928 Level 3 Est. Patient 13:15:54 CDT Kylie Lund [facility] CPT-41847 Level 3 Est. Patient 09:10:11 CDT Kylie Lund [facility] CPT-29614 Level 4 Est. Patient 12:08:30 DATA WAREHOUSING MANAGER Hope cohn MD [facility] CPT-20602 Level 4 Est. Patient 19:08:42 DATA WAREHOUSING MANAGER Hope cohn MD PhD [facility] CPT-24880 Level 4 Est. Patient 20:04:51 CDT Hope cohn MD [facility] CPT-18102 Level 3 New Patient 01:46:11 DATA WAREHOUSING MANAGER Hope landers MD PhD [facility] Procedures Code Procedure Name Date Entry Date Standard Desc ription CPT-J0897 Prolia 60 mg 14:14:16 DATA WAREHOUSING MANAGER CPT-16352 Abx/Therapy Injection 14:14:15 DATA WAREHOUSING MANAGER CPT-39765 Lipid - LAB USE ONLY 10:01:52 DATA WAREHOUSING MANAGER 2 CPT-69818 Calcium - LAB USE ONLY 10:01:51 DATA WAREHOUSING MANAGER CPT-88885 Venipuncture Draw Fee 10:01:51 DATA WAREHOUSING MANAGER CPT-LR Lesion Removal 16:22:01 DATA WAREHOUSING MANAGER CPT-56869 TSH - LAB USE ONLY 14:26:02 CDT CPT-86064 CMP - LAB USE ONLY 14:26:01 CDT CPT-19134 CBC with Diff - LAB USE ONLY 14:26:01 CDT 2 CPT-84374 Venipuncture Draw Fee 14:26:01 CDT CPT-79553 First Vx - Ix admin for Medicare patients 13:27:08 CDT CPT-09498 Fluzone High-Dose Intramuscular Suspension 11/26 13:27:08 CDT CPT-G0438 Initial Annual Wellness Exam 14:19:57 CD T CPT-G0009 Administration of Pneumococcal Vaccine 9 11:36:25 CDT CPT-56169 Prevnar 13 Intramuscular Suspension 1 1:36:25 CDT CPT-09173 Prevnar 13 Intramuscular Suspension 1 0:40:58 CDT CPT-J0897 Prolia 60 mg 10:37:16 CDT CPT-42075 Abx/Therapy Injection 10:37:16 CDT CPT-J0897 Prolia 60 mg 16:09:34 DATA WAREHOUSING MANAGER CPT-J0897 Prolia 60 mg 11:10:35 DATA WAREHOUSING MANAGER CPT-46652 Abx/Therapy Injection 11:10:35 DATA WAREHOUSING MANAGER CPT-000 Give Appropriate Flu Vaccine 17:01:15 DATA WAREHOUSING MANAGER 2 CPT-23574 Fluzone High Dose (65+) 15:03:08 DATA WAREHOUSING MANAGER 02/15 CPT-65374 Immunization Single Admin 15:03:08 DATA WAREHOUSING MANAGER 2014 CPT-OV Office Visit 15:58:06 CDT CPT-J0897 Prolia 60 mg 08:45:38 CDT CPT-20153 Abx/Therapy Injection 08:45:38 CDT CPT-J3420 Vitamin B12 1000mcg (Cyanocobalamin) 09:26:20 DATA WAREHOUSING MANAGER CPT-13446 Abx/Therapy Injection 09:26:20 DATA WAREHOUSING MANAGER CPT-J3420 Vitamin B12 1000mcg (Cyanocobalamin) 09:44:40 DATA WAREHOUSING MANAGER CPT-52445 Abx/Therapy Injection 09:44:40 DATA WAREHOUSING MANAGER CPT-J3420 Vitamin B12 1000mcg (Cyanocobalamin) 09:15:54 DATA WAREHOUSING MANAGER CPT-10114 Abx/Therapy Injection 09:15:54 DATA WAREHOUSING MANAGER CPT-J3420 Vitamin B12 1000mcg (Cyanocobalamin) 09:46:44 DATA WAREHOUSING MANAGER CPT-30033 Abx/Therapy Injection 09:46:44 DATA WAREHOUSING MANAGER CPT-J3420 Vitamin B12 1000mcg (Cyanocobalamin) 09:47:34 DATA WAREHOUSING MANAGER CPT-83240 Abx/Therapy Injection 09:47:34 DATA WAREHOUSING MANAGER CPT-J3420 Vitamin B12 1000mcg (Cyanocobalamin) 14:35:50 DATA WAREHOUSING MANAGER CPT-J3420 Vitamin B12 1000mcg (Cyanocobalamin) 09:25:05 DATA WAREHOUSING MANAGER CPT-34380 Abx/Therapy Injection 09:25:05 DATA WAREHOUSING MANAGER CPT-G0008 Administration of Influenza Virus Vaccine 13:36:47 CDT CPT-03075 Fluzone High-Dose Intramuscular Suspension 11/15 13:36:47 CDT CPT-J0897 Prolia 60 mg 08:50:41 CDT CPT-08766 Abx/Therapy Injection 08:50:41 CDT CPT-43452 Bone Density 12:06:12 CDT CPT-97298 Bone Density 08:54:40 CDT CPT-OV Office Visit 15:37:02 CDT CPT-25184 Postop F/U Visit 15:47:49 CDT CPT-44901 Postop F/U Visit 15:21:02 CDT [facility] 07:52:27 CDT 20 20/06/01 CPT-11355 Venipuncture Draw Fee 13:51:18 CDT CPT-11466 Venipuncture Draw Fee 10:14:55 DATA WAREHOUSING MANAGER CPT-46442 Venipuncture Draw Fee 13:39:45 DATA WAREHOUSING MANAGER CPT-OV Office Visit 15:11:22 DATA WAREHOUSING MANAGER CPT-29965 Venipuncture Draw Fee 09:20:49 DATA WAREHOUSING MANAGER CPT-89234 Venipuncture Draw Fee 16:52:15 DATA WAREHOUSING MANAGER CPT-72766 Venipuncture Draw Fee 10:37:24 DATA WAREHOUSING MANAGER CPT-31096 Venipuncture Draw Fee 08:21:21 DATA WAREHOUSING MANAGER CPT-05288 Venipuncture Draw Fee 08:30:20 DATA WAREHOUSING MANAGER CPT-89483 Venipuncture Draw Fee 14:53:21 DATA WAREHOUSING MANAGER CPT-42423 Venipuncture Draw Fee 09:40:56 DATA WAREHOUSING MANAGER CPT-86379 Venipuncture Draw Fee 10:30:47 DATA WAREHOUSING MANAGER CPT-36404 Venipuncture Draw Fee 10:46:17 DATA WAREHOUSING MANAGER CPT-65811 Venipuncture Draw Fee 11:12:45 DATA WAREHOUSING MANAGER CPT-36453 Venipuncture Draw Fee 09:53:33 DATA WAREHOUSING MANAGER CPT-42783 Venipuncture Draw Fee 11:53:51 DATA WAREHOUSING MANAGER CPT-64388 Venipuncture Draw Fee 10:33:50 DATA WAREHOUSING MANAGER CPT-33975 Venipuncture Draw Fee 10:05:01 DATA WAREHOUSING MANAGER CPT-00054 Venipuncture Draw Fee 14:32:52 DATA WAREHOUSING MANAGER CPT-96699 Venipuncture Draw Fee 09:46:13 DATA WAREHOUSING MANAGER CPT-32321 Venipuncture Draw Fee 11:34:27 DATA WAREHOUSING MANAGER CPT-05076 Venipuncture Draw Fee 13:17:16 DATA WAREHOUSING MANAGER CPT-53847 Venipuncture Draw Fee 12:05:39 CDT CPT-86015 Venipuncture Draw Fee 12:49:12 CDT CPT-26006 Venipuncture Draw Fee 12:37:18 CDT CPT-50774 Venipuncture Draw Fee 10:57:11 CDT CPT-00748 Venipuncture Draw Fee 13:47:40 CDT CPT-01806 Venipuncture Draw Fee 10:02:17 CDT CPT-65128 TB Tubersol 17:32:32 CDT CPT-OV Office Visit 16:21:53 CDT CPT-OV Office Visit 15:49:22 CDT CPT-OV Office Visit 17:16:31 CDT CPT-OV Office Visit 10:43:31 CDT
--- OUTSIDE RECORDS SUMMARY | 2019-02-09 12:39 | XMS REPORT | Clinical Summary ---
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 Dick Yates MD ABDOMINAL PAIN, GENERALIZED ICD-789.07 Inactive Hope Benavidez MD PhD FEVER UNSPECIFIED ICD-780.60 Inactive Hope cohn MD PhD UNSPECIFIED VENOUS INSUFFICIENCY ICD-459.81 [place] [facility] Adam Yates MD ADENOCARCINOMA, ASCENDING COLON [...] Sebaceous cyst, scalp ICD-706.2 Inactive Tracy Lundum BINGO CLERK Medication List Medication Instructions Start Date Stop Date Generic Name NDC Status Provider Patient Instruction LOMOTIL 2.5-0.025 MG TABS 1 tab by mouth prn 4 DIPHENOXYLATE-ATROPINE 19917095708 No Longer Active Kylie Escalonakum BINGO CLERK Active MAGNESIUM GLUCONATE 250 MG TABS 1 tab tid 4 MAGNESIUM GLUCONATE 71024813440 No Longer Active Kylie Yokum BINGO CLERK Active CYANOCOBALAMIN 1000 MCG/ML INJ SOLN 1 injection every 2 weeks 20 20/01/03 CYANOCOBALAMIN 92081643108 No Longer Active Kylie Lundum BINGO CLERK Active ATENOLOL 25 MG ORAL TABS 1/2 pill by mouth daily, for headac hes, blood pressure ATENOLOL 94156515033 Active Hope Benavidez MD PhD Active PROPRANOLOL HCL 80 MG TABS 1 tab tue. and thur. 04/10 PROPRANOLOL HCL 41065711672 No Longer Active Hope Benavidez MD PhD A ctive IRON 325 (65 FE) MG TABS 1 every other day FERROUS SULFATE 37615995132 Active Hope Benavidez MD PhD Active VITAMIN D3 4000 IU 1 tab 3 times daily VITAMIN D3 4000 IU No Longer Active Hope Benavidez MD PhD Active BACTRIM DS 800-160 MG TABS 1 pill by mouth twice daily, for UTI SULFAMETHOXAZOLE-TRIMETHOPRIM 20895325449 No Longer Active A attila Benavidez MD PhD Active PROLIA 60 MG/ML SOLN 1 shot every 6 months for osteoprosis DENOSUMAB 98012396946 Active Hope Benavidez MD PhD Active CALCIUM + D + K 750-500-40 MG-UNT-MCG TABS 1 tab by mouth tw ice daily CALCIUM-VITAMIN D-VITAMIN K 78320270881 Active Hope landers MD PhD Active DAILY VALUE MULTIVITAMIN TABS 1 tab by mouth twice daily MULTIPLE VITAMIN 02260127200 Active Hope Benavidez MD PhD Active FISH OIL 306 MG CAPS 1 tab by mouth three times daily OMEGA-3 FATTY ACIDS 88440187684 Active Hope Benavidez MD PhD Active LUTEIN 10 MG TABS 1 tab daily LUTEIN 52398315502 Act cash Hope Benavidez MD PhD Active FLORANEX PACK 1 pack three times daily, for bowel health LACTOBACILLUS 43880570332 Active Hope Benavidez MD PhD Active TRIAMTERENE-HCTZ 37.5-25 MG TABS 1 tab by mouth daily TRIAMTERENE-HCTZ 35286783209 Active Kylie Holt BINGO CLERK Active CYCLOBENZAPRINE HCL 10 MG TABS 1 tablet by mouth three times daily as needed for headaches CYCLOBENZAPRINE HCL 94927755309 No Longe r Active Adam Yates MD Active OMEPRAZOLE 20 MG CPDR 1 tablet by mouth daily for GERD OMEPRAZOLE 12987174954 No Longer Active Adam Yates MD A ctive ZOFRAN 8 MG TABS 1 tab by mouth every 12 hours prn 201 05/16/09 ONDANSETRON HCL 76054675618 No Longer Active Adam Yates MD Active PHENADOZ 25 MG SUPP 1 every 4 hrs. PRN PROMETHA ZINE HCL 34330090948 No Longer Active Adam Yates MD Active POTASSIUM CHLORIDE 20 MEQ PACK by mouth twice a day prn POTASSIUM CHLORIDE 52905524652 No Longer Active Adam Yates MD Active PROMETHAZINE HCL 25 MG TABS 1 Q. 4 hr. PRN PROM ETHAZINE HCL 13659362543 No Longer Active Adam Yates MD Active INNOPRAN XL 120 MG [id number] Take one by mouth daily 2 PROPRANOLOL HCL SR BEADS 63389996449 No Longer Active Adam Yates MD A ctive FLAGYL 500 MG TABS 1 pill by mouth three times daily, for diarrh ea METRONIDAZOLE 34888343264 No Longer Active Hope Benavidez MD PhD Active DYAZIDE 37.5-25 MG CAPS 1 qd TRIAMTERENE-HC TZ 47480000957 No Longer Active Hope Benavidez MD PhD Active PROZAC 20 MG CAPS 1 q d FLUOXETINE HCL 48487 765212 No Longer Active Hope Benavidez MD PhD Active SIMVASTATIN 40 MG TABS 1 qd SIMVASTATIN 004 07724523 No Longer Active Adam Yates MD Active MELOXICAM 15 MG TABS 1 qd MELOXICAM 5353213 5662 No Longer Active Adam Yates MD Active IMODIUM A-D 2 MG TABS 2 onset at diarrhea and prn. LOPERAMIDE HCL 46166973153 Active Hope Benavidez MD PhD Active EXCEDRIN EXTRA STRENGTH 250-250-65 MG TABS 1-2 q6h PRN headache 201 04/16/21 [id number] 27597774688 Active Hope Benavidez MD PhD Active FLAGYL 500 MG TABS 1 qid METRONIDAZOLE 94535 934879 No Longer Active Adam Yates MD Active LEVAQUIN 750 MG TABS 1 qd LEVOFLOXACIN 5486 2609438 No Longer Active Adam Yates MD Active ADULT ASPIRIN LOW STRENGTH 81 MG TBDP 1 qd A SPIRIN 75238903502 Active Hope Benavidez MD PhD Active LEVAQUIN 750 MG TABS 1 qd LEVAQUIN 750 MG T ABS 611323 LEVOFLOXACIN Inactive FLAGYL 500 MG TABS 1 qid FLAGYL 500 MG TABS 781978 METRONIDAZOLE Inactive MELOXICAM 15 MG TABS 1 qd MELOXICAM 15 MG T ABS 551618 MELOXICAM Inactive SIMVASTATIN 40 MG TABS 1 qd SIMVASTATIN 40 MG TABS 537093 SIMVASTATIN Inactive PROZAC 20 MG CAPS 1 q d PROZAC 20 MG CAPS 31 0385 FLUOXETINE HCL Inactive DYAZIDE 37.5-25 MG CAPS 1 qd DYAZIDE 37.5 -25 MG CAPS 705774 TRIAMTERENE-HCTZ Inactive INNOPRAN XL 120 MG [id number] Take one by mouth daily 2 INNOPRAN XL 120 MG [id number] PROPRANOLOL HCL SR BEADS Inactive PROMETHAZINE HCL 25 MG TABS 1 Q. 4 hr. PRN PROMETHAZINE HCL 25 MG TABS 421568 PROMETHAZINE HCL Inactive POTASSIUM CHLORIDE 20 MEQ PACK by mouth twice a day prn POTASSIUM CHLORIDE 20 MEQ PACK 528882 POTASSIUM CHLORIDE Inactive PHENADOZ 25 MG SUPP 1 every 4 hrs. PRN PHENADOZ 2 5 MG SUPP 313989 PROMETHAZINE HCL Inactive ZOFRAN 8 MG TABS 1 tab by mouth every 12 hours prn 201 05/16/09 ZOFRAN 8 MG TABS 599032 ONDANSETRON HCL Inactive OMEPRAZOLE 20 MG CPDR 1 tablet by mouth daily for GERD OMEPRAZOLE 20 MG CPDR 546712 OMEPRAZOLE Inactive CYCLOBENZAPRINE HCL 10 MG TABS 1 tablet by mouth three times daily as needed for headaches CYCLOBENZAPRINE HCL 10 MG TABS 938386 CYCLOBENZAPRINE HCL Inactive VITAMIN D3 4000 IU 1 tab 3 times daily VITAMIN D3 4000 IU Inactive PROPRANOLOL HCL 80 MG TABS 1 tab tue. and thur. 04/10 PROPRANOLOL HCL 80 MG TABS 259626 PROPRANOLOL HCL Inactive CYANOCOBALAMIN 1000 MCG/ML INJ SOLN 1 injection every 2 weeks 20 20/01/03 CYANOCOBALAMIN 1000 MCG/ML INJ SOLN 304839 CYANOCOBALAM IN Inactive MAGNESIUM GLUCONATE 250 MG TABS 1 tab tid 4 MAGNESIUM GLUCONATE 250 MG TABS 414445 MAGNESIUM GLUCONATE Inactive LOMOTIL 2.5-0.025 MG TABS 1 tab by mouth prn 4 LOMOTIL 2.5- 0.025 MG TABS 6548163 DIPHENOXYLATE-ATROPINE Inactive FLAGYL 500 MG TABS 1 pill by mouth three times daily, for diarrh ea FLAGYL 500 MG TABS 409420 METRONIDAZOLE Inactive BACTRIM DS 800-160 MG TABS 1 pill by mouth twice daily, for UTI BACTRIM DS 800-160 MG TABS 560537 SULFAMETHOXAZOLE-TRIM ETHOPRIM Inactive Advance Directives Directive Description [...] Panel - Chemistry sodium, serum 138 mmol/L 262-065 8512/10/23 carbon dioxide, venous blood 29.5 mmol/L 21.0-32 .0 potassium, serum 3.7 mmol/L 3.5-5.2 chloride, serum 100 mmol/L 98-107 blood glucose 93 mg/dL 65-110 urea nitrogen, blood 29 mg/dL 7-18 creatinine, serum 1.25 mg/dL 0.55-1.30 alanine aminotransferase (SGPT), serum 50 U/L -78 aspartate aminotransferase (SGOT), serum 34 U/L 15-37 calcium, serum 9.5 mg/dL 8.5-10.1 bilirubin, serum, total 0.40 mg/dL 0.00-1.00 sodium, serum 142 mmol/L 990-980 7161/04/20 carbon dioxide, venous blood 34.7 mmol/L 21.0-32 [...] CBC W/DIFF, Comp. Metabolic Panel - Hematology hemoglobin, blood 14.9 g/dL 12.0-16.0 hematocrit, blood 43.1 % 36.0-46.0 mean corpuscular volume, RBC 98 fL 80-97 mean corpuscular hemoglobin, RBC 33.9 pg 27. 0-31.2 mean corpuscular hemoglobin concentration, RBC 34.5 G/DL % 31.8-35.4 red blood cell distribution width 12.9 % 11 .6-14.8 platelet count 189 10^3/MM^3 10*3/mm3 332-324 9606/04/20 leukocyte count, blood 5.9 10^3/MM^3 10*3/mm3 4.6-10.2 neutrophils as percent of blood leukocytes 54.2 % 42.2-75.2 monocytes as percent of blood leukocytes 5.9 % 1.7-9.3 lymphocytes as percent of blood leukocytes 35.6 % 20.5-51.1 erythrocyte (RBC) count 4.48 10^6/MM^3 10*6/mm3 4.04-5.4 8 hemoglobin, blood 14.5 g/dL 12.0-16.0 hematocrit, blood 43.2 % 36.0-46.0 erythrocyte (RBC) count 4.39 10^6/MM^3 10*6/mm3 4.04-5.4 8 lymphocytes as percent of blood leukocytes 34.5 % 20.5-51.1 monocytes as percent of blood leukocytes 7.4 % 1.7-9.3 neutrophils as percent of blood leukocytes 54.5 % 42.2-75.2 leukocyte count, blood 5.5 10^3/MM^3 10*3/mm3 4.6-10.2 mean corpuscular volume, RBC 97 fL 80-97 [...] 1.24 m[iU]/mL 0.36-3.74 cholesterol, serum 227 mg/dL 276-490 0491/10/23 triglyceride, serum, fasting 144 mg/dL 30-200 HDL cholesterol, serum 60 mg/dL 32-96 LDL cholesterol, serum 138 mg/dL 0-130 Lab Report: Lipid Panel, MICROALBUMIN, T hyroid Stimulating Hormone (L) - Lab microalbumin, urine 10 0-19 Encounters Code Encounter Date Provider Facility CPT-85059 Level 3 Est. Patient 13:15:54 CDT Kylie Lund [facility] CPT-64816 Level 3 Est. Patient 09:10:11 CDT Kylie Lund [facility] CPT-03792 Level 4 Est. Patient 12:08:30 MECHANICAL TECHNOLOGIST Hope cohn MD PhD [facility] CPT-87690 Level 4 Est. Patient 19:08:42 MECHANICAL TECHNOLOGIST Hope cohn MD PhD [facility] CPT-24735 Level 4 Est. Patient 20:04:51 CDT Hope cohn MD PhD [facility] CPT-74339 Level 3 New Patient 01:46:11 MECHANICAL TECHNOLOGIST Hope landers MD PhD [facility] Procedures Code Procedure Name Date Entry Date Standard Desc ription CPT-J0897 Prolia 60 mg 16:09:34 MECHANICAL TECHNOLOGIST CPT-J0897 Prolia 60 mg 11:10:35 MECHANICAL TECHNOLOGIST CPT-46539 Abx/Therapy Injection 11:10:35 MECHANICAL TECHNOLOGIST CPT-000 Give Appropriate Flu Vaccine 17:01:15 MECHANICAL TECHNOLOGIST 2 CPT-64808 Fluzone High Dose (65+) 15:03:08 MECHANICAL TECHNOLOGIST 02/15 CPT-29690 Immunization Single Admin 15:03:08 MECHANICAL TECHNOLOGIST 2014 CPT-OV Office Visit 15:58:06 CDT CPT-J0897 Prolia 60 mg 08:45:38 CDT CPT-02462 Abx/Therapy Injection 08:45:38 CDT CPT-J3420 Vitamin B12 1000mcg (Cyanocobalamin) 09:26:20 MECHANICAL TECHNOLOGIST CPT-65979 Abx/Therapy Injection 09:26:20 MECHANICAL TECHNOLOGIST CPT-J3420 Vitamin B12 1000mcg (Cyanocobalamin) 09:44:40 MECHANICAL TECHNOLOGIST CPT-67785 Abx/Therapy Injection 09:44:40 MECHANICAL TECHNOLOGIST CPT-J3420 Vitamin B12 1000mcg (Cyanocobalamin) 09:15:54 MECHANICAL TECHNOLOGIST CPT-73458 Abx/Therapy Injection 09:15:54 MECHANICAL TECHNOLOGIST CPT-J3420 Vitamin B12 1000mcg (Cyanocobalamin) 09:46:44 MECHANICAL TECHNOLOGIST CPT-16240 Abx/Therapy Injection 09:46:44 MECHANICAL TECHNOLOGIST CPT-J3420 Vitamin B12 1000mcg (Cyanocobalamin) 09:47:34 MECHANICAL TECHNOLOGIST CPT-58287 Abx/Therapy Injection 09:47:34 MECHANICAL TECHNOLOGIST CPT-J3420 Vitamin B12 1000mcg (Cyanocobalamin) 14:35:50 MECHANICAL TECHNOLOGIST CPT-J3420 Vitamin B12 1000mcg (Cyanocobalamin) 09:25:05 MECHANICAL TECHNOLOGIST CPT-42860 Abx/Therapy Injection 09:25:05 MECHANICAL TECHNOLOGIST CPT-G0008 Administration of Influenza Virus Vaccine 13:36:47 CDT CPT-29522 Fluzone High-Dose Intramuscular Suspension 11/15 13:36:47 CDT CPT-J0897 Prolia 60 mg 08:50:41 CDT CPT-15419 Abx/Therapy Injection 08:50:41 CDT CPT-11676 Bone Density 12:06:12 CDT CPT-21250 Bone Density 08:54:40 CDT CPT-OV Office Visit 15:37:02 CDT CPT-09452 Postop F/U Visit 15:47:49 CDT CPT-00835 Postop F/U Visit 15:21:02 CDT CPT-[facility] Transitional Care Mgmt-High 07:52:27 CDT 20 20/06/01 CPT-89269 Venipuncture Draw Fee 13:51:18 CDT CPT-52020 Venipuncture Draw Fee 10:14:55 MECHANICAL TECHNOLOGIST CPT-74232 Venipuncture Draw Fee 13:39:45 MECHANICAL TECHNOLOGIST CPT-OV Office Visit 15:11:22 MECHANICAL TECHNOLOGIST CPT-13133 Venipuncture Draw Fee 09:20:49 MECHANICAL TECHNOLOGIST CPT-10491 Venipuncture Draw Fee 16:52:15 MECHANICAL TECHNOLOGIST CPT-20578 Venipuncture Draw Fee 10:37:24 MECHANICAL TECHNOLOGIST CPT-78002 Venipuncture Draw Fee 08:21:21 MECHANICAL TECHNOLOGIST CPT-57125 Venipuncture Draw Fee 08:30:20 MECHANICAL TECHNOLOGIST CPT-17067 Venipuncture Draw Fee 14:53:21 MECHANICAL TECHNOLOGIST CPT-06299 Venipuncture Draw Fee 09:40:56 MECHANICAL TECHNOLOGIST CPT-80852 Venipuncture Draw Fee 10:30:47 MECHANICAL TECHNOLOGIST CPT-97312 Venipuncture Draw Fee 10:46:17 MECHANICAL TECHNOLOGIST CPT-90050 Venipuncture Draw Fee 11:12:45 MECHANICAL TECHNOLOGIST CPT-92122 Venipuncture Draw Fee 09:53:33 MECHANICAL TECHNOLOGIST CPT-79251 Venipuncture Draw Fee 11:53:51 MECHANICAL TECHNOLOGIST CPT-53962 Venipuncture Draw Fee 10:33:50 MECHANICAL TECHNOLOGIST CPT-44351 Venipuncture Draw Fee 10:05:01 MECHANICAL TECHNOLOGIST CPT-90799 Venipuncture Draw Fee 14:32:52 MECHANICAL TECHNOLOGIST CPT-24124 Venipuncture Draw Fee 09:46:13 MECHANICAL TECHNOLOGIST CPT-11335 Venipuncture Draw Fee 11:34:27 MECHANICAL TECHNOLOGIST CPT-07763 Venipuncture Draw Fee 13:17:16 MECHANICAL TECHNOLOGIST CPT-18015 Venipuncture Draw Fee 12:05:39 CDT CPT-36794 Venipuncture Draw Fee 12:49:12 CDT CPT-38428 Venipuncture Draw Fee 12:37:18 CDT CPT-20045 Venipuncture Draw Fee 10:57:11 CDT CPT-35779 Venipuncture Draw Fee 13:47:40 CDT CPT-02129 Venipuncture Draw Fee 10:02:17 CDT CPT-09393 TB Tubersol 17:32:32 CDT CPT-OV Office Visit 16:21:53 CDT CPT-OV Office Visit 15:49:22 CDT CPT-OV Office Visit 17:16:31 CDT CPT-OV Office Visit 10:43:31 CDT
--- OUTSIDE RECORDS SUMMARY | 2019-02-09 12:39 | XMS REPORT | Clinical Summary ---
Author Author Florecita Macario Organization [facility] Address Unknown Phone Unavailable Allergies, Adverse Reactions, [...] system, NEC FH Stroke V17.1 Active Adam Yatse MD Family history of stroke (cerebrovascular) Colon cancer 153.9 Resolved Adam Yatse MD Malignant neoplasm of colon, unspecified FH [...] Kina Joshua APRN ADENOCARCINOMA, COLON, 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 Dikc Yates MD ABDOMINAL PAIN, GENERALIZED ICD-789.07 Inactive Hope Benavidez MD PhD FEVER UNSPECIFIED ICD-780.60 Inactive Hope cohn MD PhD UNSPECIFIED VENOUS INSUFFICIENCY ICD-459.81 [place] ctive Adam Yates MD ADENOCARCINOMA, 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 Inac tive Hope Benavidez MD PhD Hyperkalemia ICD-276.7 Inactive Hope Benavidez MD PhD Health maintenance exam ICD-V70.0 Bam Yates MD Weakness ICD-780.79 Inactive Hope Benavidez MD P hD Aftercare following surgery of the teeth,oral cavity a nd digestive system, NEC ICD-V58.75 Inactive Adam Yates MD Colon cancer ICD-153.9 Bam lnua MD Asymptomatic postmenopausal status (age-related) (natural) I CD-V49.81 Inactive Hope Benavidez MD PhD Dysuria ICD-788.1 Inactive Hope Benavidez MD PhD 201 05/19/01 Medication List Medication Instructions Start Date Stop Date Generic Name NDC Status Provider Patient Instruction ATENOLOL 25 MG ORAL TABS 1/2 pill by mouth daily, for headac hes, blood pressure ATENOLOL 64860542650 Active Hope Benavidez MD PhD Active PROPRANOLOL HCL 80 MG TABS 1 tab tue. and thur. 04/10 PROPRANOLOL HCL 28353470142 No Longer Active Hope Benavidez MD PhD A ctive IRON 325 (65 FE) MG TABS 1 every other day FERROUS SULFATE 72513875609 Active Hope Benavidez MD PhD Active VITAMIN D3 4000 IU 1 tab 3 times daily VITAMIN D3 4000 IU No Longer Active Hope Benavidez MD PhD Active CYANOCOBALAMIN 1000 MCG/ML INJ SOLN 1 injection every 2 weeks 01/09 CYANOCOBALAMIN 94663763441 Active Luara Elder Active BACTRIM DS 800-160 MG TABS 1 pill by mouth twice daily, for UTI SULFAMETHOXAZOLE-TRIMETHOPRIM 25009940949 No Longer Active Lisa attila Benavidez MD PhD Active PROLIA 60 MG/ML SOLN 1 shot every 6 months for osteoprosis DENOSUMAB 80309410937 Active Hope Benavidez MD PhD Active CALCIUM + D + K 750-500-40 MG-UNT-MCG TABS 1 tab by mouth tw ice daily CALCIUM-VITAMIN D-VITAMIN K 79663295697 Active Hope landers MD PhD Active DAILY VALUE MULTIVITAMIN TABS 1 tab by mouth twice daily MULTIPLE VITAMIN 66904351315 Active Hope Benavidez MD PhD Active FISH OIL 306 MG CAPS 1 tab by mouth three times daily OMEGA-3 FATTY ACIDS 23364259866 Active Hope Benavidez MD PhD Active LUTEIN 10 MG TABS 1 tab daily LUTEIN 44393567316 Act cash Hope Benavidez MD PhD Active FLORANEX PACK 1 pack three times daily, for bowel health LACTOBACILLUS 77545341186 Active Hope Benavidez MD PhD Active LOMOTIL 2.5-0.025 MG TABS 1 tab by mouth prn DIPHENOXYLATE-ATROPINE 77446818174 Active Hope Benavidez MD PhD Active TRIAMTERENE-HCTZ 37.5-25 MG TABS 1 tab by mouth daily TRIAMTERENE-HCTZ 93026169430 Active Hope Benavidez MD PhD Acti ve MAGNESIUM GLUCONATE 250 MG TABS 1 tab tid MAGN ESIUM GLUCONATE 30257161650 Active Adam Yates MD Active CYCLOBENZAPRINE HCL 10 MG TABS 1 tablet by mouth three times daily as needed for headaches CYCLOBENZAPRINE HCL 86937272561 No Longe r Active Adam Yates MD Active OMEPRAZOLE 20 MG CPDR 1 tablet by mouth daily for GERD OMEPRAZOLE 35221507630 No Longer Active Adam Yates MD A ctive ZOFRAN 8 MG TABS 1 tab by mouth every 12 hours prn 201 05/16/09 ONDANSETRON HCL 42698277223 No Longer Active Adam Yates MD Active PHENADOZ 25 MG SUPP 1 every 4 hrs. PRN PROMETHA ZINE HCL 19031922975 No Longer Active Adam Yates MD Active POTASSIUM CHLORIDE 20 MEQ PACK by mouth twice a day prn POTASSIUM CHLORIDE 44835117722 No Longer Active Adam Yates MD Active PROMETHAZINE HCL 25 MG TABS 1 Q. 4 hr. PRN PROM ETHAZINE HCL 14638233497 No Longer Active Adam Yates MD Active INNOPRAN XL 120 MG [id number] Take one by mouth daily 2 PROPRANOLOL HCL SR BEADS 45440145266 No Longer Active Adam Yates MD A ctive FLAGYL 500 MG TABS 1 pill by mouth three times daily, for diarrh ea METRONIDAZOLE 66275911452 No Longer Active Hope Benavidez MD PhD Active DYAZIDE 37.5-25 MG CAPS 1 qd TRIAMTERENE-HC TZ 07634080103 No Longer Active Hope Benavidez MD PhD Active PROZAC 20 MG CAPS 1 q d FLUOXETINE HCL 39633 024496 No Longer Active Hope Benavidez MD PhD Active SIMVASTATIN 40 MG TABS 1 qd SIMVASTATIN 004 97213031 No Longer Active Adam Yates MD Active MELOXICAM 15 MG TABS 1 qd MELOXICAM 5142760 6154 No Longer Active Adam Yates MD Active IMODIUM A-D 2 MG TABS 2 onset at diarrhea and prn. LOPERAMIDE HCL 20519420074 Active Hope Benavidez MD PhD Active EXCEDRIN EXTRA STRENGTH 250-250-65 MG TABS 1-2 q6h PRN headache 201 04/16/21 [id number] 95083888834 Active Hope Benavidez MD PhD Active FLAGYL 500 MG TABS 1 qid METRONIDAZOLE 59664 703052 No Longer Active Adam Yates MD Active LEVAQUIN 750 MG TABS 1 qd LEVOFLOXACIN 5486 3638651 No Longer Active Adam Yates MD Active ADULT ASPIRIN LOW STRENGTH 81 MG TBDP 1 qd A SPIRIN 09876035505 Active Hope Benavidez MD PhD Active LEVAQUIN 750 MG TABS 1 qd LEVAQUIN 750 MG T ABS 012680 LEVOFLOXACIN Inactive FLAGYL 500 MG TABS 1 qid FLAGYL 500 MG TABS 274460 METRONIDAZOLE Inactive MELOXICAM 15 MG TABS 1 qd MELOXICAM 15 MG T ABS 873504 MELOXICAM Inactive SIMVASTATIN 40 MG TABS 1 qd SIMVASTATIN 40 MG TABS 616548 SIMVASTATIN Inactive PROZAC 20 MG CAPS 1 q d PROZAC 20 MG CAPS 31 0385 FLUOXETINE HCL Inactive DYAZIDE 37.5-25 MG CAPS 1 qd DYAZIDE 37.5 -25 MG CAPS 517762 TRIAMTERENE-HCTZ Inactive INNOPRAN XL 120 MG [id number] Take one by mouth daily 2 INNOPRAN XL 120 MG [id number] PROPRANOLOL HCL SR BEADS Inactive PROMETHAZINE HCL 25 MG TABS 1 Q. 4 hr. PRN PROMETHAZINE HCL 25 MG TABS 421824 PROMETHAZINE HCL Inactive POTASSIUM CHLORIDE 20 MEQ PACK by mouth twice a day prn POTASSIUM CHLORIDE 20 MEQ PACK 935880 POTASSIUM CHLORIDE Inactive PHENADOZ 25 MG SUPP 1 every 4 hrs. PRN PHENADOZ 2 5 MG SUPP 475692 PROMETHAZINE HCL Inactive ZOFRAN 8 MG TABS 1 tab by mouth every 12 hours prn 201 05/16/09 ZOFRAN 8 MG TABS 168405 ONDANSETRON HCL Inactive OMEPRAZOLE 20 MG CPDR 1 tablet by mouth daily for GERD OMEPRAZOLE 20 MG CPDR 414193 OMEPRAZOLE Inactive CYCLOBENZAPRINE HCL 10 MG TABS 1 tablet by mouth three times daily as needed for headaches CYCLOBENZAPRINE HCL 10 MG TABS 338507 CYCLOBENZAPRINE HCL Inactive VITAMIN D3 4000 IU 1 tab 3 times daily VITAMIN D3 4000 IU Inactive PROPRANOLOL HCL 80 MG TABS 1 tab tue. and thur. 04/10 PROPRANOLOL HCL 80 MG TABS 775641 PROPRANOLOL HCL Inactive FLAGYL 500 MG TABS 1 pill by mouth three times daily, for diarrh ea FLAGYL 500 MG TABS 534413 METRONIDAZOLE Inactive BACTRIM DS 800-160 MG TABS [...] pressure, diastolic - 8462-4 56 mm[Hg] BP odbson blood pressure, systolic - 8480-6 126 mm[Hg] [...] Range Description Chart Maintenance: labs added to flowshe et - Chemistry magnesium, serum 2.0 mg/dL Chart Maintenance: Outside labs entered on flowsheet - Chemistry sodium, serum 139 mmol/L potassium, serum 3.9 mmol/L blood glucose 85 mg/dL creatinine, serum 1.26 mg/dL aspartate aminotransferase (SGOT), serum 33 U/L alanine aminotransferase (SGPT), serum 44 U/L alkaline phosphatase, serum 127 U/L Chart Maintenance: Outside labs entered on flowsUsentric - Hematology leukocyte count, blood 4.6 10*3/mm3 hemoglobin, blood 13.6 g/dL platelet count 162 10*3/mm3 Lab Report: BMP - Chemistry sodium, serum 141 mmol/L potassium, serum 4.2 mmol/L blood glucose 66 mg/dL creatinine, serum 1.16 mg/dL Lab Report: CBC W/DIFF, Comp. Metabolic Panel - Chemistry sodium, serum 138 mmol/L 711-789 1141/08/14 potassium, serum 4.0 mmol/L 3.5-5.2 chloride, serum [...] 0.40 mg/dL 0.00-1.00 sodium, serum 145 mmol/L 948-378 7514/02/02 potassium, serum 4.2 mmol/L 3.5-5.2 chloride, serum 104 mmol/L 98-107 carbon dioxide, venous blood 28.3 mmol/L 21.0-32 .0 blood glucose 93 mg/dL 65-110 urea nitrogen, blood 32 mg/dL 7-18 creatinine, serum 1.40 mg/dL 0.60-1.30 alanine aminotransferase (SGPT), serum 73 U/L -78 aspartate aminotransferase (SGOT), serum 42 U/L 15-37 calcium, serum 9.2 mg/dL 8.5-10.1 bilirubin, serum, total 0.40 mg/dL 0.00-1.00 sodium, serum 142 mmol/L 000-845 7207/04/27 potassium, serum 3.2 mmol/L 3.5-5.2 chloride, serum [...] 11 .6-14.8 platelet count 155 10^3/MM^3 10*3/mm3 998-528 3257/04/27 leukocyte count, blood 5.3 10^3/MM^3 10*3/mm3 4.6-10.2 [...] 11 .6-14.8 platelet count 213 10^3/MM^3 10*3/mm3 259-447 4920/08/14 leukocyte count, blood 5.8 10^3/MM^3 10*3/mm3 4.6-10.2 [...] 1.2 ng/mL Lab Report: cmp - Chemistry creatinine, serum 1.24 mg/dL blood glucose 115 mg/dL potassium, serum 4.0 mmol/L sodium, serum 142 mmol/L Lab Report: Comp. Metabolic Panel - Chem istry sodium, serum 143 mmol/L 807-170 7089/04/15 potassium, serum 3.4 mmol/L 3.5-5.2 chloride, serum [...] 0.00-1.00 Lab Report: Lipid Panel - Chemistry LDL cholesterol, serum 136 mg/dL 0-130 cholesterol, serum 209 mg/dL 588-708 1650/09/11 triglyceride, serum, fasting 113 mg/dL 30-200 HDL cholesterol, serum 50 mg/dL 32-96 Lab Report: UADIP W/MICRO, AUTO - Chemis [...] semiquantitative 7.0 5.0-8.5 Lab Report: VITAMIN D, 25-HYDROXY/02335, MAGNESIUM/622 - Chemistry vitamin D 25-hydroxy, serum 41 ng/mL 30-100 Encounters Code Encounter Date Provider Facility CPT-99321 Level 4 Est. Patient 12:08:30 BUSINESS SERVICES COORDINATOR Hope cohn MD PhD [facility] CPT-33194 Level 4 Est. Patient 19:08:42 BUSINESS SERVICES COORDINATOR Hope cohn MD PhD [facility] CPT-11419 Level 4 Est. Patient 20:04:51 CDT Hope cohn MD PhD [facility] CPT-25340 Level 3 New Patient 01:46:11 BUSINESS SERVICES COORDINATOR Hope landers MD PhD [facility] Procedures Code Procedure Name Date Entry Date Standard Desc ription CPT-OV Office Visit 15:58:06 CDT CPT-J0897 Prolia 60 mg 08:45:38 CDT CPT-88133 Abx/Therapy Injection 08:45:38 CDT CPT-J3420 Vitamin B12 1000mcg (Cyanocobalamin) 09:26:20 BUSINESS SERVICES COORDINATOR CPT-06577 Abx/Therapy Injection 09:26:20 BUSINESS SERVICES COORDINATOR CPT-J3420 Vitamin B12 1000mcg (Cyanocobalamin) 09:44:40 BUSINESS SERVICES COORDINATOR CPT-91806 Abx/Therapy Injection 09:44:40 BUSINESS SERVICES COORDINATOR CPT-J3420 Vitamin B12 1000mcg (Cyanocobalamin) 09:15:54 BUSINESS SERVICES COORDINATOR CPT-68580 Abx/Therapy Injection 09:15:54 BUSINESS SERVICES COORDINATOR CPT-J3420 Vitamin B12 1000mcg (Cyanocobalamin) 09:46:44 BUSINESS SERVICES COORDINATOR CPT-44772 Abx/Therapy Injection 09:46:44 BUSINESS SERVICES COORDINATOR CPT-J3420 Vitamin B12 1000mcg (Cyanocobalamin) 09:47:34 BUSINESS SERVICES COORDINATOR CPT-86592 Abx/Therapy Injection 09:47:34 BUSINESS SERVICES COORDINATOR CPT-J3420 Vitamin B12 1000mcg (Cyanocobalamin) 14:35:50 BUSINESS SERVICES COORDINATOR CPT-J3420 Vitamin B12 1000mcg (Cyanocobalamin) 09:25:05 BUSINESS SERVICES COORDINATOR CPT-84542 Abx/Therapy Injection 09:25:05 BUSINESS SERVICES COORDINATOR CPT-G0008 Administration of Influenza Virus Vaccine 13:36:47 CDT CPT-79575 Fluzone High-Dose Intramuscular Suspension 11/15 13:36:47 CDT CPT-J0897 Prolia 60 mg 08:50:41 CDT CPT-26208 Abx/Therapy Injection 08:50:41 CDT CPT-14401 Bone Density 12:06:12 CDT CPT-49421 Bone Density 08:54:40 CDT CPT-OV Office Visit 15:37:02 CDT CPT-91958 Postop F/U Visit 15:47:49 CDT CPT-34209 Postop F/U Visit 15:21:02 CDT CPT-[facility] Transitional Care Mgmt-High 07:52:27 CDT 20 20/06/01 CPT-42814 Venipuncture Draw Fee 13:51:18 CDT CPT-98895 Venipuncture Draw Fee 10:14:55 BUSINESS SERVICES COORDINATOR CPT-52182 Venipuncture Draw Fee 13:39:45 BUSINESS SERVICES COORDINATOR CPT-OV Office Visit 15:11:22 BUSINESS SERVICES COORDINATOR CPT-96519 Venipuncture Draw Fee 09:20:49 BUSINESS SERVICES COORDINATOR CPT-25815 Venipuncture Draw Fee 16:52:15 BUSINESS SERVICES COORDINATOR 2014/01/ 28 CPT-92342 Venipuncture Draw Fee 10:37:24 BUSINESS SERVICES COORDINATOR CPT-59954 Venipuncture Draw Fee 08:21:21 BUSINESS SERVICES COORDINATOR CPT-23531 Venipuncture Draw Fee 08:30:20 BUSINESS SERVICES COORDINATOR CPT-14204 Venipuncture Draw Fee 14:53:21 BUSINESS SERVICES COORDINATOR CPT-98028 Venipuncture Draw Fee 09:40:56 BUSINESS SERVICES COORDINATOR CPT-59228 Venipuncture Draw Fee 10:30:47 BUSINESS SERVICES COORDINATOR CPT-33917 Venipuncture Draw Fee 10:46:17 BUSINESS SERVICES COORDINATOR CPT-77267 Venipuncture Draw Fee 11:12:45 BUSINESS SERVICES COORDINATOR CPT-94635 Venipuncture Draw Fee 09:53:33 BUSINESS SERVICES COORDINATOR CPT-66273 Venipuncture Draw Fee 11:53:51 BUSINESS SERVICES COORDINATOR CPT-32391 Venipuncture Draw Fee 10:33:50 BUSINESS SERVICES COORDINATOR CPT-84777 Venipuncture Draw Fee 10:05:01 BUSINESS SERVICES COORDINATOR CPT-38175 Venipuncture Draw Fee 14:32:52 BUSINESS SERVICES COORDINATOR CPT-39446 Venipuncture Draw Fee 09:46:13 BUSINESS SERVICES COORDINATOR CPT-52366 Venipuncture Draw Fee 11:34:27 BUSINESS SERVICES COORDINATOR CPT-49834 Venipuncture Draw Fee 13:17:16 BUSINESS SERVICES COORDINATOR CPT-40359 Venipuncture Draw Fee 12:05:39 CDT CPT-01071 Venipuncture Draw Fee 12:49:12 CDT CPT-68494 Venipuncture Draw Fee 12:37:18 CDT CPT-32756 Venipuncture Draw Fee 10:57:11 CDT CPT-44557 Venipuncture Draw Fee 13:47:40 CDT CPT-01986 Venipuncture Draw Fee 10:02:17 CDT CPT-58629 TB Tubersol 17:32:32 CDT CPT-OV Office Visit 16:21:53 CDT CPT-OV Office Visit 15:49:22 CDT CPT-OV Office Visit 17:16:31 CDT CPT-OV Office Visit 10:43:31 CDT
--- OUTSIDE RECORDS SUMMARY | 2019-02-09 12:39 | XMS REPORT | Clinical Summary ---
Author Author Renaldo, Florecita Munoz Organization [facility] [employer] Address Unknown Phone Unavailable Allergies, Adverse Reactions, [...] PhD Hyperpotassemia GERD 530.81 Resolved Kylie Yokum GRAIN DISTRIBUTOR Esophageal reflux Health maintenance exam V70.0 Resolved Adolfo Yates MD Routine general medical examination at a health care facility Anemia 285.9 Resolved Kylie Yanet GRAIN DISTRIBUTOR Anemia, unspecified Personal history of malignant neoplasm of large intestine V10.05 Active Adam Yates MD Personal history of malignant neoplasm of large intestine Hypomagnesemia 275.2 Resolved Kylie Yanet GRAIN DISTRIBUTOR Disorders of magnesium metabolism Weakness 780.79 Resolved [...] Sebaceous cyst, scalp 706.2 Resolved Kylie Yokum GRAIN DISTRIBUTOR Sebaceous cyst Cervical lymphadenopathy, anterior, left 785.6 Resolv ed Kylie Yokum GRAIN DISTRIBUTOR Enlargement of lymph nodes Need for prophylactic vaccination and inoculation against in fluenza V04.81 Resolved Adam Yates MD Need for prophylactic vaccination and inoculation against influenza Preventive health care V70.0 Active Kylie Yokum GRAIN DISTRIBUTOR Routine general medical examination at a health care facility Thyroid nodule, left 241.0 Active Kylie Yokum A PRN Nontoxic uninodular goiter Screening mammogram V76.12 Active Kylie Yogabbium AP RN Other screening mammogram Mandy 706.2 Resolved Kylie Yokum GRAIN DISTRIBUTOR Sebaceous cyst Colon cancer, ascending 153.6 Resolved Kylie Yok um GRAIN DISTRIBUTOR Malignant neoplasm of ascending colon Foot pain, left 729.5 Active 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 Pain in limb Splinter 919.6 Active Kylie Yokum GRAIN DISTRIBUTOR Superficial foreign body (splinter) of other, multiple, and unspecified sites, without major open wound and without mention of infection ABDOMINAL PAIN, RIGHT LOWER QUADRANT ICD-789.03 Inactive Kina Joshua GRAIN DISTRIBUTOR ADENOCARCINOMA, COLON, 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 Dick Yates MD ABDOMINAL PAIN, GENERALIZED ICD-789.07 Inactive Hope Benavidez MD PhD FEVER UNSPECIFIED ICD-780.60 Inactive Hope cohn MD PhD UNSPECIFIED VENOUS INSUFFICIENCY ICD-459.81 Elda ctive Adam Yates MD ADENOCARCINOMA, 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 Inac tive Hope Benavidez MD PhD Hyperkalemia ICD-276.7 Inactive Hope Benavidez MD PhD GERD ICD-530.81 Inactive Kylie Holt GRAIN DISTRIBUTOR 2015 Health maintenance exam ICD-V70.0 Inactive Adolfo Yates MD Anemia ICD-285.9 Inactive Kylie Holt GRAIN DISTRIBUTOR 07/24 Hypomagnesemia ICD-275.2 Inactive Kylie Holt GRAIN DISTRIBUTOR Weakness ICD-780.79 Inactive Hope Benavidez MD P [...] Sebaceous cyst, scalp ICD-706.2 Inactive Tracy Holt GRAIN DISTRIBUTOR Cervical lymphadenopathy, anterior, left ICD-785.6 Inactive Kylie Holt GRAIN DISTRIBUTOR Need for prophylactic vaccination and inoculation against in fluenza ICD-V04.81 Inactive Adam Yates MD Mandy ICD-706.2 Inactive Kylie Holt GRAIN DISTRIBUTOR 07/20 Colon cancer, ascending ICD-153.6 Inactive Gabbi Holt GRAIN DISTRIBUTOR Medication List Medication Instructions Start Date Stop Date Generic Name NDC Status Provider Patient Instruction COQ10 100 MG ORAL CAPS 1 daily COENZYME Q10 462774429 20 Active LETY Nation Active VITAMIN D3 2000 UNIT ORAL CAPS Melaleuca-One daily CHOLECALCIFEROL 33870434710 Active Kylie Holt APRN Active PROBIOTIC DAILY ORAL CAPS Take one daily PROBIOTIC PRODUCT 10214264438 Active Kylie oHlt APRN Active IRON 325 (65 FE) MG TABS 1 every other day FERR OUS SULFATE 71875449516 No Longer Active Kylie Holt APRN Active FLORANEX PACK 1 pack three times daily, for bowel health LACTOBACILLUS 13917931334 No Longer Active Kylie Holt APRN Active LOMOTIL 2.5-0.025 MG TABS 1 tab by mouth prn 4 DIPHENOXYLATE-ATROPINE 67423280244 No Longer Active Kylie Holt APRN Active MAGNESIUM GLUCONATE 250 MG TABS 1 tab tid 4 MAGNESIUM GLUCONATE 26600892341 No Longer Active Kylie Holt APRN Active CYANOCOBALAMIN 1000 MCG/ML INJ SOLN 1 injection every 2 weeks 20 20/01/03 CYANOCOBALAMIN 55225573589 No Longer Active Kylie Holt APRN Active ATENOLOL 25 MG ORAL TABS 1/2 pill by mouth daily, for headac hes, blood pressure ATENOLOL 42426082885 Active Kylieshubham Holt APRN Active PROPRANOLOL HCL 80 MG TABS 1 tab tue. and thur. 04/10 PROPRANOLOL HCL 63459336347 No Longer Active Hope Benavidez MD PhD A ctive VITAMIN D3 4000 IU 1 tab 3 times daily VITAMIN D3 4000 IU No Longer Active Hope Benavidez MD PhD Active BACTRIM DS 800-160 MG TABS 1 pill by mouth twice daily, for UTI SULFAMETHOXAZOLE-TRIMETHOPRIM 11220308163 No Longer Active A attila Benavidez MD PhD Active PROLIA 60 MG/ML SOLN 1 shot every 6 months for osteoprosis DENOSUMAB 52401509666 Active Hope Benavidez MD PhD Active CALCIUM + D + K 750-500-40 MG-UNT-MCG TABS 1 tab by mouth tw ice daily CALCIUM-VITAMIN D-VITAMIN K 21769035945 Active Hope landers MD PhD Active DAILY VALUE MULTIVITAMIN TABS 1 tab by mouth twice daily MULTIPLE VITAMIN 05609010567 Active Hope Benavidez MD PhD Active FISH OIL 306 MG CAPS 1 tab by mouth three times daily OMEGA-3 FATTY ACIDS 48540792047 Active Hope Benavidez MD PhD Active LUTEIN 10 MG TABS 1 tab daily LUTEIN 92400228247 Act cash Hope Benavidez MD PhD Active TRIAMTERENE-HCTZ 37.5-25 MG TABS 1 tab by mouth daily TRIAMTERENE-HCTZ 21747334086 Active Kylie Holt APRN Active CYCLOBENZAPRINE HCL 10 MG TABS 1 tablet by mouth three times daily as needed for headaches CYCLOBENZAPRINE HCL 66967961515 No Longe r Active Adam Yates MD Active OMEPRAZOLE 20 MG CPDR 1 tablet by mouth daily for GERD OMEPRAZOLE 41815179300 No Longer Active Adam Yates MD A ctive ZOFRAN 8 MG TABS 1 tab by mouth every 12 hours prn 201 05/16/09 ONDANSETRON HCL 91990671359 No Longer Active Adam Yates MD Active PHENADOZ 25 MG SUPP 1 every 4 hrs. PRN PROMETHA ZINE HCL 53604940249 No Longer Active Adam Yates MD Active POTASSIUM CHLORIDE 20 MEQ PACK by mouth twice a day prn POTASSIUM CHLORIDE 11963915907 No Longer Active Adam Yates MD Active PROMETHAZINE HCL 25 MG TABS 1 Q. 4 hr. PRN PROM ETHAZINE HCL 67208965459 No Longer Active Adam Yates MD Active INNOPRAN XL 120 MG [id number] Take one by mouth daily 2 PROPRANOLOL HCL SR BEADS 69733852184 No Longer Active Adam Yates MD A ctive FLAGYL 500 MG TABS 1 pill by mouth three times daily, for diarrh ea METRONIDAZOLE 49587878335 No Longer Active Hope Benavidez MD PhD Active DYAZIDE 37.5-25 MG CAPS 1 qd TRIAMTERENE-HC TZ 86449406502 No Longer Active Hope Benavidez MD PhD Active PROZAC 20 MG CAPS 1 q d FLUOXETINE HCL 42168 665592 No Longer Active Hope Benavidez MD PhD Active SIMVASTATIN 40 MG TABS 1 qd SIMVASTATIN 004 24970410 No Longer Active Adam Yates MD Active MELOXICAM 15 MG TABS 1 qd MELOXICAM 1297791 0759 No Longer Active Adam Yates MD Active IMODIUM A-D 2 MG TABS 2 onset at diarrhea and prn. LOPERAMIDE HCL 38026076653 Active Hope Benavidez MD PhD Active EXCEDRIN EXTRA STRENGTH 250-250-65 MG TABS 1-2 q6h PRN headache 201 04/16/21 [id number] 66795081843 Active Hope Benavidez MD PhD Active FLAGYL 500 MG TABS 1 qid METRONIDAZOLE 56052 892315 No Longer Active Adam Yates MD Active LEVAQUIN 750 MG TABS 1 qd LEVOFLOXACIN 5486 0576905 No Longer Active Adam Yates MD Active ADULT ASPIRIN LOW STRENGTH 81 MG TBDP 1 qd A SPIRIN 44179320410 Active Hope Benavidez MD PhD Active LEVAQUIN 750 MG TABS 1 qd LEVAQUIN 750 MG T ABS 914533 LEVOFLOXACIN Inactive FLAGYL 500 MG TABS 1 qid FLAGYL 500 MG TABS 242667 METRONIDAZOLE Inactive MELOXICAM 15 MG TABS 1 qd MELOXICAM 15 MG T ABS 858918 MELOXICAM Inactive SIMVASTATIN 40 MG TABS 1 qd SIMVASTATIN 40 MG TABS 731909 SIMVASTATIN Inactive PROZAC 20 MG CAPS 1 q d PROZAC 20 MG CAPS 31 0385 FLUOXETINE HCL Inactive DYAZIDE 37.5-25 MG CAPS 1 qd DYAZIDE 37.5 -25 MG CAPS 505333 TRIAMTERENE-HCTZ Inactive INNOPRAN XL 120 MG [id number] Take one by mouth daily 2 INNOPRAN XL 120 MG [id number] PROPRANOLOL HCL SR BEADS Inactive PROMETHAZINE HCL 25 MG TABS 1 Q. 4 hr. PRN PROMETHAZINE HCL 25 MG TABS 609970 PROMETHAZINE HCL Inactive POTASSIUM CHLORIDE 20 MEQ PACK by mouth twice a day prn POTASSIUM CHLORIDE 20 MEQ PACK 7329850 POTASSIUM CHLORIDE Inactive PHENADOZ 25 MG SUPP 1 every 4 hrs. PRN PHENADOZ 2 5 MG SUPP 882675 PROMETHAZINE HCL Inactive ZOFRAN 8 MG TABS 1 tab by mouth every 12 hours prn 201 05/16/09 ZOFRAN 8 MG TABS 335820 ONDANSETRON HCL Inactive OMEPRAZOLE 20 MG CPDR 1 tablet by mouth daily for GERD OMEPRAZOLE 20 MG CPDR 466704 OMEPRAZOLE Inactive CYCLOBENZAPRINE HCL 10 MG TABS 1 tablet by mouth three times daily as needed for headaches CYCLOBENZAPRINE HCL 10 MG TABS 358842 CYCLOBENZAPRINE HCL Inactive VITAMIN D3 4000 IU 1 tab 3 times daily VITAMIN D3 4000 IU Inactive PROPRANOLOL HCL 80 MG TABS 1 tab tue. and thur. 04/10 PROPRANOLOL HCL 80 MG TABS 408023 PROPRANOLOL HCL Inactive CYANOCOBALAMIN 1000 MCG/ML INJ SOLN 1 injection every 2 weeks 20 20/01/03 CYANOCOBALAMIN 1000 MCG/ML INJ SOLN 116979 CYANOCOBALAM IN Inactive MAGNESIUM GLUCONATE 250 MG TABS 1 tab tid 4 MAGNESIUM GLUCONATE 250 MG TABS 972124 MAGNESIUM GLUCONATE Inactive LOMOTIL 2.5-0.025 MG TABS 1 tab by mouth prn 4 LOMOTIL 2.5- 0.025 MG TABS 0944420 DIPHENOXYLATE-ATROPINE Inactive FLORANEX PACK 1 pack three times daily, for bowel health FLORANEX PACK LACTOBACILLUS Inactive IRON 325 (65 FE) MG TABS 1 every other day IRON 325 (65 FE) MG TABS 950735 FERROUS SULFATE Inactive FLAGYL 500 MG TABS 1 pill by mouth three times daily, for diarrh ea FLAGYL 500 MG TABS 594932 METRONIDAZOLE Inactive BACTRIM DS 800-160 MG TABS 1 pill by mouth twice daily, for UTI BACTRIM DS 800-160 MG TABS 894758 SULFAMETHOXAZOLE-TRIM ETHOPRIM Inactive Advance Directives Directive Description [...] 11 .0-15.0 platelet count 157 THOUSAND/UL 10*3/mm3 814-886 2639/04/20 mean platelet volume 8.9 fL 7.5-12.5 Lab Report: CBC W/DIFF, Comp. Metabolic Panel, Thyroid Stimulating Hormo ... - Chemistry sodium, serum 139 mmol/L 454-336 2128/10/20 carbon dioxide, venous blood 32.2 mmol/L 21.0-32 [...] - Chemi stry cholesterol, serum 200 mg/dL 430-165 8173/11/22 triglyceride, serum, fasting 129 mg/dL 30-200 HDL cholesterol, serum 56 mg/dL 32-96 LDL cholesterol, serum 118 mg/dL 0-130 calcium, serum 9.0 mg/dL 8.5-10.1 Lab Report: MicroAlb Random w/creat/6517 - Urinalysis microalbumin/total urine volume 8 mg/L Units converted. See lab report for original value. microalbumin/creatinine ratio, urine 15 MCG/MG CREAT mg/L <30 Encounters Code Encounter Date Provider Facility CPT-41877 Level 3 Est. Patient 17:54:48 CDT Kylie boyd [facility] CPT-27407 Level 3 Est. Patient 16:26:30 CDT Kina blackmon [facility] CPT-70030 Level 3 New Patient 16:22:01 RESEARCH HYDROLOGIST Adam Yates MD [facility] CPT-55329 Level 4 Est. Patient 17:00:48 CDT Kylie Lund [facility] CPT-22566 Level 3 Est. Patient 13:15:54 CDT Kylieshubham Lund [facility] [place] CPT-02685 Level 3 Est. Patient 09:10:11 CDT Kylie Lund [facility] [place] CPT-58973 Level 4 Est. Patient 12:08:30 RESEARCH HYDROLOGIST Hope cohn MD [facility] CPT-15789 Level 4 Est. Patient 19:08:42 RESEARCH HYDROLOGIST Hope cohn MD [facility] CPT-60681 Level 4 Est. Patient 20:04:51 CDT Hope cohn MD [facility] CPT-82234 Level 3 New Patient 01:46:11 RESEARCH HYDROLOGIST Hope landers MD [facility] Procedures Code Procedure Name Date Entry Date Standard Desc ription CPT-J0897 Prolia 60 mg 14:55:42 CDT CPT-38196 Abx/Therapy Injection 14:55:42 CDT CPT-61994 Bone Density - XRAY USE ONLY 10:27:12 CDT 2 CPT-G0439 Subsequent Annual Wellness Exam 17:54:53 CDT CPT-72956 Foot, left, comp min 3V - XRAY USE ONLY 12:22:49 CDT CPT-G0009 Administration of Pneumococcal Vaccine 3 12:18:00 CDT CPT-42347 Pneumovax 23 Injection Injectable 25 MCG /0.5ML 12:18:00 CDT CPT-J0897 Prolia 60 mg 14:14:16 RESEARCH HYDROLOGIST CPT-68661 Abx/Therapy Injection 14:14:15 RESEARCH HYDROLOGIST CPT-53217 Lipid - LAB USE ONLY 10:01:52 RESEARCH HYDROLOGIST 2 CPT-09568 Calcium - LAB USE ONLY 10:01:51 RESEARCH HYDROLOGIST CPT-86302 Venipuncture Draw Fee 10:01:51 RESEARCH HYDROLOGIST CPT-LR Lesion Removal 16:22:01 RESEARCH HYDROLOGIST CPT-98865 TSH - LAB USE ONLY 14:26:02 CDT CPT-50570 CMP - LAB USE ONLY 14:26:01 CDT CPT-12885 CBC with Diff - LAB USE ONLY 14:26:01 CDT 2 CPT-93282 Venipuncture Draw Fee 14:26:01 CDT CPT-60644 First Vx - Ix admin for Medicare patients 13:27:08 CDT CPT-55364 Fluzone High-Dose Intramuscular Suspension 11/26 13:27:08 CDT CPT-G0438 Initial Annual Wellness Exam 14:19:57 CD T CPT-G0009 Administration of Pneumococcal Vaccine 9 11:36:25 CDT CPT-09346 Prevnar 13 Intramuscular Suspension 1 1:36:25 CDT CPT-85536 Prevnar 13 Intramuscular Suspension 1 0:40:58 CDT CPT-J0897 Prolia 60 mg 10:37:16 CDT CPT-21073 Abx/Therapy Injection 10:37:16 CDT CPT-J0897 Prolia 60 mg 16:09:34 RESEARCH HYDROLOGIST CPT-J0897 Prolia 60 mg 11:10:35 RESEARCH HYDROLOGIST CPT-87108 Abx/Therapy Injection 11:10:35 RESEARCH HYDROLOGIST CPT-000 Give Appropriate Flu Vaccine 17:01:15 RESEARCH HYDROLOGIST 2 CPT-93706 Fluzone High Dose (65+) 15:03:08 RESEARCH HYDROLOGIST 02/15 CPT-53739 Immunization Single Admin 15:03:08 RESEARCH HYDROLOGIST 2014 CPT-OV Office Visit 15:58:06 CDT CPT-J0897 Prolia 60 mg 08:45:38 CDT CPT-27242 Abx/Therapy Injection 08:45:38 CDT CPT-J3420 Vitamin B12 1000mcg (Cyanocobalamin) 09:26:20 RESEARCH HYDROLOGIST CPT-67487 Abx/Therapy Injection 09:26:20 RESEARCH HYDROLOGIST CPT-J3420 Vitamin B12 1000mcg (Cyanocobalamin) 09:44:40 RESEARCH HYDROLOGIST CPT-34463 Abx/Therapy Injection 09:44:40 RESEARCH HYDROLOGIST CPT-J3420 Vitamin B12 1000mcg (Cyanocobalamin) 09:15:54 RESEARCH HYDROLOGIST CPT-28217 Abx/Therapy Injection 09:15:54 RESEARCH HYDROLOGIST CPT-J3420 Vitamin B12 1000mcg (Cyanocobalamin) 09:46:44 RESEARCH HYDROLOGIST CPT-68484 Abx/Therapy Injection 09:46:44 RESEARCH HYDROLOGIST CPT-J3420 Vitamin B12 1000mcg (Cyanocobalamin) 09:47:34 RESEARCH HYDROLOGIST CPT-40790 Abx/Therapy Injection 09:47:34 RESEARCH HYDROLOGIST CPT-J3420 Vitamin B12 1000mcg (Cyanocobalamin) 14:35:50 RESEARCH HYDROLOGIST CPT-J3420 Vitamin B12 1000mcg (Cyanocobalamin) 09:25:05 RESEARCH HYDROLOGIST CPT-37726 Abx/Therapy Injection 09:25:05 RESEARCH HYDROLOGIST CPT-G0008 Administration of Influenza Virus Vaccine 13:36:47 CDT CPT-58045 Fluzone High-Dose Intramuscular Suspension 11/15 13:36:47 CDT CPT-J0897 Prolia 60 mg 08:50:41 CDT CPT-50154 Abx/Therapy Injection 08:50:41 CDT CPT-27527 Bone Density 12:06:12 CDT CPT-54795 Bone Density 08:54:40 CDT CPT-OV Office Visit 15:37:02 CDT CPT-94549 Postop F/U Visit 15:47:49 CDT CPT-24730 Postop F/U Visit 15:21:02 CDT [facility]PT-[facility] Transitional Care Mgmt-High 07:52:27 CDT 20 20/06/01 CPT-88647 Venipuncture Draw Fee 13:51:18 CDT CPT-22026 Venipuncture Draw Fee 10:14:55 RESEARCH HYDROLOGIST CPT-95411 Venipuncture Draw Fee 13:39:45 RESEARCH HYDROLOGIST CPT-OV Office Visit 15:11:22 RESEARCH HYDROLOGIST CPT-37843 Venipuncture Draw Fee 09:20:49 RESEARCH HYDROLOGIST CPT-28977 Venipuncture Draw Fee 16:52:15 RESEARCH HYDROLOGIST CPT-85996 Venipuncture Draw Fee 10:37:24 RESEARCH HYDROLOGIST CPT-27244 Venipuncture Draw Fee 08:21:21 RESEARCH HYDROLOGIST CPT-67642 Venipuncture Draw Fee 08:30:20 RESEARCH HYDROLOGIST CPT-46741 Venipuncture Draw Fee 14:53:21 RESEARCH HYDROLOGIST CPT-38150 Venipuncture Draw Fee 09:40:56 RESEARCH HYDROLOGIST CPT-55489 Venipuncture Draw Fee 10:30:47 RESEARCH HYDROLOGIST CPT-41890 Venipuncture Draw Fee 10:46:17 RESEARCH HYDROLOGIST CPT-90537 Venipuncture Draw Fee 11:12:45 RESEARCH HYDROLOGIST CPT-45176 Venipuncture Draw Fee 09:53:33 RESEARCH HYDROLOGIST CPT-00120 Venipuncture Draw Fee 11:53:51 RESEARCH HYDROLOGIST CPT-13420 Venipuncture Draw Fee 10:33:50 RESEARCH HYDROLOGIST CPT-19070 Venipuncture Draw Fee 10:05:01 RESEARCH HYDROLOGIST CPT-57204 Venipuncture Draw Fee 14:32:52 RESEARCH HYDROLOGIST CPT-80584 Venipuncture Draw Fee 09:46:13 RESEARCH HYDROLOGIST CPT-98901 Venipuncture Draw Fee 11:34:27 RESEARCH HYDROLOGIST CPT-79223 Venipuncture Draw Fee 13:17:16 RESEARCH HYDROLOGIST CPT-58517 Venipuncture Draw Fee 12:05:39 CDT CPT-82731 Venipuncture Draw Fee 12:49:12 CDT CPT-28729 Venipuncture Draw Fee 12:37:18 CDT CPT-85087 Venipuncture Draw Fee 10:57:11 CDT CPT-81851 Venipuncture Draw Fee 13:47:40 CDT CPT-25881 Venipuncture Draw Fee 10:02:17 CDT CPT-79925 TB Tubersol 17:32:32 CDT CPT-OV Office Visit 16:21:53 CDT CPT-OV Office Visit 15:49:22 CDT CPT-OV Office Visit 17:16:31 CDT CPT-OV Office Visit 10:43:31 CDT
--- OUTSIDE RECORDS SUMMARY | 2019-02-09 12:40 | XMS REPORT | Clinical Summary ---
Author Author Admin, Florecita Munoz Organization [facility] [employer] Address Unknown Phone Unavailable Allergies, Adverse Reactions, [...] Disorders of magnesium metabolism Weakness 780.79 Resolved oHpe Benavidez MD PhD Other malaise and fatigue [...] Sebaceous cyst, scalp 706.2 Resolved Kylie Yogabbium SPICE FUMIGATOR Sebaceous cyst Cervical lymphadenopathy, anterior, left 785.6 Resolv ed Kylie Yokum SPICE FUMIGATOR Enlargement of lymph nodes Need for prophylactic vaccination and inoculation against in fluenza V04.81 Resolved Adam Yates MD Need for prophylactic vaccination and inoculation against influenza Preventive health care V70.0 Resolved Kylie deras SPICE FUMIGATOR Routine general medical examination at a health care facility Thyroid nodule, left 241.0 Active Kylie Gonzalez PRN Nontoxic uninodular goiter Screening mammogram V76.12 Active Kylie MEEK RN Other screening mammogram Mandy 706.2 Resolved Kylie Yokum SPICE FUMIGATOR Sebaceous cyst Colon cancer, ascending 153.6 Resolved Kylie Yok um SPICE FUMIGATOR Malignant neoplasm of ascending colon Foot pain, left 729.5 Active Sulema Schwarz [employer]CH [employer] Pain in limb Splinter 919.6 Resolved Kylie Yokum SPICE FUMIGATOR Superficial foreign body (splinter) of other, multiple, and unspecified sites, without major open wound and without mention of infection Rash 782.1 Resolved Kylie Yokum SPICE FUMIGATOR Rash and other nonspecific skin eruption Cyst 706.2 Active Kylie Yokum SPICE FUMIGATOR S ebaceous cyst Body Mass Index 23.0-23.9 Adult Active Kylie Yogabbium SPICE FUMIGATOR Body Mass Index between 19-24, adult Unspecified fall, initial encounter E888.9 Active Kylie Holt SPICE FUMIGATOR Unspecified fall Eye pain, left 379.91 Active Kylie Yanet SPICE FUMIGATOR Pain in or around eye ABDOMINAL PAIN, RIGHT LOWER QUADRANT ICD-789.03 Inactive Kina Joshua SPICE FUMIGATOR ADENOCARCINOMA, COLON, 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 Dick Yates MD ABDOMINAL PAIN, GENERALIZED ICD-789.07 Inactive Hope Benavidez MD PhD FEVER UNSPECIFIED ICD-780.60 Inactive Hope cohn MD PhD UNSPECIFIED VENOUS INSUFFICIENCY ICD-459.81 [place] ctive Adam Yates MD ADENOCARCINOMA, 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 Inac tive Hope Benavidez MD PhD Hyperkalemia ICD-276.7 Inactive Hope Benavidez MD PhD GERD ICD-530.81 Inactive Kylie Holt SPICE FUMIGATOR 2015 Health maintenance exam ICD-V70.0 Bam Yates MD Anemia ICD-285.9 Inactive Kylie Holt SPICE FUMIGATOR 07/24 Hypomagnesemia ICD-275.2 Inactive Kylie Yokum SPICE FUMIGATOR Weakness ICD-780.79 Inactive Hope Benavidez MD P [...] cyst, scalp ICD-706.2 Inactive Tracy hi Yokum SPICE FUMIGATOR Cervical lymphadenopathy, anterior, left ICD-785.6 Inactive Kylie Yokum SPICE FUMIGATOR Need for prophylactic vaccination and inoculation against in fluenza ICD-V04.81 Inactive Adam Yates MD Preventive health care ICD-V70.0 Inactive Ka thi Yokum SPICE FUMIGATOR Mandy ICD-706.2 Inactive Kylie Yokum SPICE FUMIGATOR 07/20 Colon cancer, ascending ICD-153.6 Inactive K athi Yokum SPICE FUMIGATOR Splinter ICD-919.6 Inactive Kylie Yokum SPICE FUMIGATOR 2017 Rash ICD-782.1 Inactive Kylie Yokum SPICE FUMIGATOR 07/25 Medication List Medication Instructions Start Date Stop Date Generic Name NDC Status Provider Patient Instruction IMODIUM A-D 2 MG ORAL TABLET 1 tablet twice a day LOPERAMIDE HCL 46598329807 Active Kylie Yokum SPICE FUMIGATOR Active VOLTAREN 1 % TRANSDERMAL GEL apply q 6-8 hour to left arm as needed for pain DICLOFENAC SODIUM 77038507928 Active Kylie Yokum SPICE FUMIGATOR Active COQ10 100 MG ORAL CAPSULE 1 daily COENZYME Q10 620066 22501 Active LETY Nation Active VITAMIN D3 2000 UNIT ORAL CAPSULE Melaleuca-One daily CHOLECALCIFEROL 05744781852 Active Kylie Holt APRN Active PROBIOTIC DAILY ORAL CAPSULE Take one daily PROBIO TIC PRODUCT 20515149422 Active Kylie Lundum SPICE FUMIGATOR Active IRON 325 (65 Fe) MG ORAL TABLET 1 every other day FERROUS SULFATE 03426587860 No Longer Active Kylie Holt SPICE FUMIGATOR Active FLORANEX ORAL PACKET 1 pack three times daily, for bowel health LACTOBACILLUS 28133405889 No Longer Active Kylie Holt APRN Active LOMOTIL 2.5-0.025 MG ORAL TABLET 1 tab by mouth prn 23/10/23 DIPHENOXYLATE-ATROPINE 50773625881 No Longer Active Kylie uLndum SPICE FUMIGATOR Active MAGNESIUM GLUCONATE 250 MG ORAL TABLET 1 tab tid 23/10/23 MAGNESIUM GLUCONATE 69770733643 No Longer Active Kylie Holt APRN Active CYANOCOBALAMIN 1000 MCG/ML INJECTION SOLUTION 1 injection ev ruben 2 weeks CYANOCOBALAMIN 71635380236 No Longer Active Kylie Lund um SPICE FUMIGATOR Active ATENOLOL 25 MG ORAL TABLET 1/2 pill by mouth daily, fo r headaches, blood pressure ATENOLOL 86066563492 Active Kylie Lundum SPICE FUMIGATOR Active PROPRANOLOL HCL 80 MG ORAL TABLET 1 tab tue. and thur. PROPRANOLOL HCL 33126586951 No Longer Active Hope Benavidez MD PhD A ctive VITAMIN D3 4000 IU 1 tab 3 times daily VITAMIN D3 4000 IU No Longer Active Hope Benavidez MD PhD Active BACTRIM DS 800-160 MG ORAL TABLET 1 pill by mouth twice claudio y, for UTI SULFAMETHOXAZOLE-TRIMETHOPRIM 55681249197 No Longer Active Hope Benavidez MD PhD Active PROLIA 60 MG/ML SUBCUTANEOUS SOLUTION 1 shot every 6 months for osteoprosis DENOSUMAB 61969413157 Active Hope Benavidez MD PhD Active CALCIUM + D + K 750-500-40 MG-UNT-MCG ORAL TABLET 1 tab by m out twice daily CALCIUM-VITAMIN D-VITAMIN K 58228095718 Active Hope valdez MD PhD Active DAILY VALUE MULTIVITAMIN ORAL TABLET 1 tab by mouth twice daily 201 05/16/14 MULTIPLE VITAMIN 48341194237 Active Hope Benavidez MD PhD Acti ve FISH OIL 306 MG CAPS 1 tab by mouth three times daily OMEGA-3 FATTY ACIDS 37188175932 Active Hope Benavidez MD PhD Active LUTEIN 10 MG ORAL TABLET 1 tab daily LUTEIN 16014825 408 Active Hope Benavidez MD PhD Active TRIAMTERENE-HCTZ 37.5-25 MG ORAL TABLET 1 tab by mouth daily 10/22 TRIAMTERENE-HCTZ 18811982723 Active Kylie Yanet ERYES Active CYCLOBENZAPRINE HCL 10 MG ORAL TABLET 1 tablet by mout h three times daily as needed for headaches CYCLOBENZAPRINE HCL 97597313934 No Longer Active Adam Yates MD Active OMEPRAZOLE 20 MG ORAL CAPSULE DELAYED RELEASE 1 tablet by [facility] daily for GERD OMEPRAZOLE 35580454948 No Longer Active Adam Yates MD Active ZOFRAN 8 MG ORAL TABLET 1 tab by mouth every 12 hours prn 4 ONDANSETRON HCL 25350560947 No Longer Active Adam Yates MD Active PHENADOZ 25 MG RECTAL SUPPOSITORY 1 every 4 hrs. PRN 2 PROMETHAZINE HCL 31848155371 No Longer Active Adam Yates MD A ctive POTASSIUM CHLORIDE 20 MEQ ORAL PACKET by mouth twice a day prn 2 POTASSIUM CHLORIDE 87059803320 No Longer Active Adam Carpenter MD Active PROMETHAZINE HCL 25 MG ORAL TABLET 1 Q. 4 hr. PRN PROMETHAZINE HCL 91429635290 No Longer Active Adam Yates MD Active INNOPRAN XL 120 MG ORAL CAPSULE EXTENDED RELEASE 24 HO UR Take one by mouth daily PROPRANOLOL HCL SR BEADS 45853756284 No Longer Active Adam Yates MD Active FLAGYL 500 MG ORAL TABLET 1 pill by mouth three times daily, for diarrhea METRONIDAZOLE 57714667406 No Longer Active Hope landers MD PhD Active DYAZIDE 37.5-25 MG ORAL CAPSULE 1 qd TRIA MTERENE-HCTZ 22321613013 No Longer Active Hope Benavidez MD PhD Active PROZAC 20 MG ORAL CAPSULE 1 q d FLUOXETINE HCL 17124196125 No Longer Active Hope Benavidez MD PhD Active SIMVASTATIN 40 MG ORAL TABLET 1 qd SIMVAS TATIN 91889593446 No Longer Active Adam Yates MD Active MELOXICAM 15 MG ORAL TABLET 1 qd MELOXICAM 05870464362 No Longer Active Adam Yates MD Active EXCEDRIN EXTRA STRENGTH 250-250-65 MG ORAL TABLET 1-2 q6h TN N headache [id number] 82349213468 Active Hope Benavidez MD PhD Active FLAGYL 500 MG ORAL TABLET 1 qid METRONIDAZOL E 27187073405 No Longer Active Adam Yates MD Active LEVAQUIN 750 MG ORAL TABLET 1 qd LEVOFLOXAC IN 76405435818 No Longer Active Adam Yates MD Active ADULT ASPIRIN LOW STRENGTH 81 MG ORAL TABLET DISINTEGRATING 1 qd ASPIRIN 63144295115 Active Hope Benavidez MD PhD Active LEVAQUIN 750 MG ORAL TABLET 1 qd LEVAQUIN 750 MG ORAL TABLET 188712 LEVOFLOXACIN Inactive FLAGYL 500 MG ORAL TABLET 1 qid FLAGYL 500 MG ORAL TABLET 534813 METRONIDAZOLE Inactive MELOXICAM 15 MG ORAL TABLET 1 qd MELOXICAM 15 MG ORAL TABLET 055786 MELOXICAM Inactive SIMVASTATIN 40 MG ORAL TABLET 1 qd SIMVASTATIN 40 MG ORAL TABLET 706910 SIMVASTATIN Inactive PROZAC 20 MG ORAL CAPSULE 1 q d PROZAC 20 MG ORAL CAPSULE 180085 FLUOXETINE HCL Inactive DYAZIDE 37.5-25 MG ORAL CAPSULE 1 qd 5 DYAZIDE 37.5-25 MG ORAL CAPSULE 796139 TRIAMTERENE-HCTZ Inactive INNOPRAN XL 120 MG ORAL CAPSULE EXTENDED RELEASE 24 HO UR Take one by mouth daily INNOPRAN XL 120 MG ORAL CAPSULE EXTENDED RELEASE 24 HOUR PROPRANOLOL HCL SR BEADS Inactive PROMETHAZINE HCL 25 MG ORAL TABLET 1 Q. 4 hr. PRN 2013 PROMETHAZINE HCL 25 MG ORAL TABLET 187825 PROMETHAZINE HCL Inactive POTASSIUM CHLORIDE 20 MEQ ORAL PACKET by mouth twice a day prn 2 POTASSIUM CHLORIDE 20 MEQ ORAL PACKET 9376627 POTASSIUM CHLORIDE Inactive PHENADOZ 25 MG RECTAL SUPPOSITORY 1 every 4 hrs. PRN 2 PHENADOZ 25 MG RECTAL SUPPOSITORY 005834 PROMETHAZINE HCL Inactive ZOFRAN 8 MG ORAL TABLET 1 tab by mouth every 12 hours prn 4 ZOFRAN 8 MG ORAL TABLET 892312 ONDANSETRON HCL Inactive OMEPRAZOLE 20 MG ORAL CAPSULE DELAYED RELEASE 1 tablet by mo uth daily for GERD OMEPRAZOLE 20 MG ORAL CAPSULE DELAYED RELEASE 19 8051 OMEPRAZOLE Inactive CYCLOBENZAPRINE HCL 10 MG ORAL TABLET 1 tablet by mout h three times daily as needed for headaches CYCLOBENZAPRINE HCL 10 MG ORAL TABLET 518913 CYCLOBENZAPRINE HCL Inactive VITAMIN D3 4000 IU 1 tab 3 times daily VITAMIN D3 4000 IU Inactive PROPRANOLOL HCL 80 MG ORAL TABLET 1 tab tue. and thur. PROPRANOLOL HCL 80 MG ORAL TABLET 324496 PROPRANOLOL HCL Inacti ve CYANOCOBALAMIN 1000 MCG/ML INJECTION SOLUTION 1 injection ev ruben 2 weeks CYANOCOBALAMIN 1000 MCG/ML INJECTION SOLUTION 30 7694 CYANOCOBALAMIN Inactive MAGNESIUM GLUCONATE 250 MG ORAL TABLET 1 tab tid 20 23/10/23 MAGNESIUM GLUCONATE 250 MG ORAL TABLET 167179 MAGNESIUM GLUCONATE Inactive LOMOTIL 2.5-0.025 MG ORAL TABLET 1 tab by mouth prn 20 23/10/23 LOMOTIL 2.5-0.025 MG ORAL TABLET 3391871 DIPHENOXYLATE-ATROPINE Inac tive FLORANEX ORAL PACKET 1 pack three times daily, for bowel health FLORANEX ORAL PACKET 41617877716 LACTOBACILLUS Inactive IRON 325 (65 Fe) MG ORAL TABLET 1 every other day 2015 IRON 325 (65 Fe) MG ORAL TABLET 454538 FERROUS SULFATE Inactive FLAGYL 500 MG ORAL TABLET 1 pill by mouth three times daily, for diarrhea FLAGYL 500 MG ORAL TABLET 268977 METRONIDAZOLE I nactive BACTRIM DS 800-160 MG ORAL TABLET 1 pill by mouth twice claudio y, for UTI BACTRIM DS 800-160 MG ORAL TABLET 276828 SULFAMETHOXAZOLE-TRIMETHOPRIM Inactive Advance Directives Directive Description Start [...] ... - Chemistry sodium, serum 138 mmol/L 329-577 9340/12/15 potassium, serum 4.0 mmol/L 3.5-5.2 chloride, serum [...] - Chem istry sodium, serum 142 mmol/L 227-895 0097/04/19 carbon dioxide, venous blood 30.2 mmol/L 21.0-32 [...] 0.00-1.00 Encounters Code Encounter Date Provider Facility CPT-45425 Level 2 Est. Patient 14:58:26 CDT Kylie Lund [facility] CPT-95549 Level 3 Est. Patient 08:15:24 [employer]ITATION [employer] DRIVER Kylie Lund [facility] CPT-31595 Level 2 Est. Patient 14:27:16 [employer]ITATION [employer]UCK DRIVER Kylie Lund [facility] CPT-75328 Level 3 Est. Patient 17:54:48 CDT Kylie Lund [facility] CPT-54545 Level 3 Est. Patient 16:26:30 CDT Kina blackmon [facility] CPT-04515 Level 3 New Patient 16:22:01 [employer]ITATION TRUCK DRIVER Adam Yates MD [facility] CPT-00835 Level 4 Est. Patient 17:00:48 CDT Kylie Lund [facility] CPT-10497 Level 3 Est. Patient 13:15:54 CDT Kylie Lund [facility] CPT-12872 Level 3 Est. Patient 09:10:11 CDT Kylie boyd [facility] CPT-77723 Level 4 Est. Patient 12:08:30 [employer]ITATION TRUCK DRIVER Hope cohn MD [facility] CPT-20450 Level 4 Est. Patient 19:08:42 [employer]ITATION TRUCK DRIVER Hope cohn MD [facility] CPT-80148 Level 4 Est. Patient 20:04:51 CDT Hope cohn MD [facility] CPT-68236 Level 3 New Patient 01:46:11 [employer]ITATION TRUCK DRIVER Hope landers MD [facility] Procedures Code Procedure Name Date Entry Date Standard Desc ription CPT-25651 Venipuncture Draw Fee 10:59:04 CDT CPT-15047 CMP - LAB USE ONLY 10:59:04 CDT CPT-02938 CBC with Diff - LAB USE ONLY 10:59:03 CDT 2 CPT-J0897 Prolia 60 mg 15:46:54 [employer]IVER CPT-28896 Abx/Therapy Injection 15:46:54 [employer]ATION [employer] CPT-22558 Microalbumin - LAB USE ONLY 09:41:32 [employer]ITATION TRUCK DRIVER 20 23/01/15 CPT-88919 Free T4 - LAB USE ONLY 09:41:32 [employer]ITATION TRUCK DRIVER CPT-25698 TSH - LAB USE ONLY 09:41:32 [employer]ATION [employer]UCK DRIVER CPT-89286 BMP - LAB USE ONLY 09:41:32 [employer]ITATION TRUCK DRIVER CPT-57729 Venipuncture Draw Fee 09:41:32 [employer]ITATION [employer]UCK DRIVER CPT-54586 First Vx - Ix admin for Medicare patients 11:19:30 CDT CPT-55170 Fluzone High-Dose Intramuscular Suspension 12/07 11:19:30 CDT CPT-J0897 Prolia 60 mg 14:55:42 CDT CPT-63619 Abx/Therapy Injection 14:55:42 CDT CPT-04053 Bone Density - XRAY USE ONLY 10:27:12 CDT 2 CPT-G0439 Subsequent Annual Wellness Exam 17:54:53 CDT CPT-15250 Foot, left, comp min 3V - XRAY USE ONLY 12:22:49 CDT CPT-G0009 Administration of Pneumococcal Vaccine 3 12:18:00 CDT CPT-68958 Pneumovax 23 Injection Injectable 25 MCG /0.5ML 12:18:00 CDT CPT-J0897 Prolia 60 mg 14:14:16 [employer] CPT-58020 Abx/Therapy Injection 14:14:15 [employer]ATION [employer] CPT-72463 Lipid - LAB USE ONLY 10:01:52 [employer]ITATION TRUCK DRIVER 2 CPT-81680 Calcium - LAB USE ONLY 10:01:51 [employer]ITATION TRUCK DRIVER CPT-74504 Venipuncture Draw Fee 10:01:51 [employer]ITATION TRUCK DRIVER CPT-LR Lesion Removal 16:22:01 [employer]ITATION [employer]UCK DRIVER CPT-47257 TSH - LAB USE ONLY 14:26:02 CDT CPT-00123 CMP - LAB USE ONLY 14:26:01 CDT CPT-97129 CBC with Diff - LAB USE ONLY 14:26:01 CDT 2 CPT-74749 Venipuncture Draw Fee 14:26:01 CDT CPT-62050 First Vx - Ix admin for Medicare patients 13:27:08 CDT CPT-29783 Fluzone High-Dose Intramuscular Suspension 11/26 13:27:08 CDT CPT-G0438 Initial Annual Wellness Exam 14:19:57 CD T CPT-G0009 Administration of Pneumococcal Vaccine 9 11:36:25 CDT CPT-61596 Prevnar 13 Intramuscular Suspension 1 1:36:25 CDT CPT-93584 Prevnar 13 Intramuscular Suspension 1 0:40:58 CDT CPT-J0897 Prolia 60 mg 10:37:16 CDT CPT-22011 Abx/Therapy Injection 10:37:16 CDT CPT-J0897 Prolia 60 mg 16:09:34 [employer]ATION [employer]IVER CPT-J0897 Prolia 60 mg 11:10:35 [employer]ITATION TRUCK DRIVER CPT-27024 Abx/Therapy Injection 11:10:35 [employer]ITATION TRUCK DRIVER CPT-000 Give Appropriate Flu Vaccine 17:01:15 SANITATION TRUCK DRIVER 2 CPT-02277 Fluzone High Dose (65+) 15:03:08 [employer]ITATION TRUCK DRIVER 02/15 CPT-39575 Immunization Single Admin 15:03:08 [employer]ITATION TRUCK DRIVER 2014 CPT-OV Office Visit 15:58:06 CDT CPT-J0897 Prolia 60 mg 08:45:38 CDT CPT-38867 Abx/Therapy Injection 08:45:38 CDT CPT-J3420 Vitamin B12 1000mcg (Cyanocobalamin) 09:26:20 [employer]ITATION TRUCK DRIVER CPT-30390 Abx/Therapy Injection 09:26:20 [employer]ITATION TRUCK DRIVER CPT-J3420 Vitamin B12 1000mcg (Cyanocobalamin) 09:44:40 [employer]ITATION TRUCK DRIVER CPT-30010 Abx/Therapy Injection 09:44:40 [employer]ITATION TRUCK DRIVER CPT-J3420 Vitamin B12 1000mcg (Cyanocobalamin) 09:15:54 [employer]ITATION TRUCK DRIVER CPT-65771 Abx/Therapy Injection 09:15:54 [employer]ITATION TRUCK DRIVER CPT-J3420 Vitamin B12 1000mcg (Cyanocobalamin) 09:46:44 [employer]ITATION TRUCK DRIVER CPT-65278 Abx/Therapy Injection 09:46:44 SANITATION TRUCK DRIVER CPT-J3420 Vitamin B12 1000mcg (Cyanocobalamin) 09:47:34 [employer]ITATION TRUCK DRIVER CPT-95789 Abx/Therapy Injection 09:47:34 SANITATION TRUCK DRIVER CPT-J3420 Vitamin B12 1000mcg (Cyanocobalamin) 14:35:50 [employer]ITATION TRUCK DRIVER CPT-J3420 Vitamin B12 1000mcg (Cyanocobalamin) 09:25:05 [employer]ITATION TRUCK DRIVER CPT-89915 Abx/Therapy Injection 09:25:05 [employer]ITATION TRUCK DRIVER CPT-G0008 Administration of Influenza Virus Vaccine 13:36:47 CDT CPT-92119 Fluzone High-Dose Intramuscular Suspension 11/15 13:36:47 CDT CPT-J0897 Prolia 60 mg 08:50:41 CDT CPT-02704 Abx/Therapy Injection 08:50:41 CDT CPT-76150 Bone Density 12:06:12 CDT CPT-94247 Bone Density 08:54:40 CDT CPT-OV Office Visit 15:37:02 CDT CPT-43333 Postop F/U Visit 15:47:49 CDT CPT-39947 Postop F/U Visit 15:21:02 CDT CPT-TCM Transitional Care Mgmt-High 07:52:27 CDT 20 20/06/01 CPT-28633 Venipuncture Draw Fee 13:51:18 CDT CPT-76824 Venipuncture Draw Fee 10:14:55 [employer]ATION [employer] DRIVER CPT-53491 Venipuncture Draw Fee 13:39:45 [employer]ITATION TRUCK DRIVER CPT-OV Office Visit 15:11:22 SANITATION TRUCK DRIVER CPT-05206 Venipuncture Draw Fee 09:20:49 [employer]ITATION TRUCK DRIVER CPT-47434 Venipuncture Draw Fee 16:52:15 [employer]ITATION TRUCK DRIVER CPT-08098 Venipuncture Draw Fee 10:37:24 SANITATION TRUCK DRIVER CPT-26637 Venipuncture Draw Fee 08:21:21 SANITATION TRUCK DRIVER CPT-27157 Venipuncture Draw Fee 08:30:20 SANITATION TRUCK DRIVER CPT-48070 Venipuncture Draw Fee 14:53:21 SANITATION TRUCK DRIVER CPT-21007 Venipuncture Draw Fee 09:40:56 SANITATION TRUCK DRIVER CPT-26267 Venipuncture Draw Fee 10:30:47 [employer]ITATION TRUCK DRIVER CPT-34123 Venipuncture Draw Fee 10:46:17 [employer]ITATION TRUCK DRIVER CPT-02415 Venipuncture Draw Fee 11:12:45 [employer]ITATION TRUCK DRIVER CPT-53305 Venipuncture Draw Fee 09:53:33 SANITATION TRUCK DRIVER CPT-09519 Venipuncture Draw Fee 11:53:51 [employer]ITATION TRUCK DRIVER CPT-24582 Venipuncture Draw Fee 10:33:50 [employer]ITATION TRUCK DRIVER CPT-56527 Venipuncture Draw Fee 10:05:01 [employer]ITATION TRUCK DRIVER CPT-52144 Venipuncture Draw Fee 14:32:52 [employer]ITATION TRUCK DRIVER CPT-13006 Venipuncture Draw Fee 09:46:13 SANITATION TRUCK DRIVER CPT-66363 Venipuncture Draw Fee 11:34:27 [employer]ITATION TRUCK DRIVER CPT-77425 Venipuncture Draw Fee 13:17:16 [employer]ITATION TRUCK DRIVER CPT-37484 Venipuncture Draw Fee 12:05:39 CDT CPT-83887 Venipuncture Draw Fee 12:49:12 CDT CPT-56769 Venipuncture Draw Fee 12:37:18 CDT CPT-23262 Venipuncture Draw Fee 10:57:11 CDT CPT-16146 Venipuncture Draw Fee 13:47:40 CDT CPT-65802 Venipuncture Draw Fee 10:02:17 CDT CPT-07792 TB Tubersol 17:32:32 CDT CPT-OV Office Visit 16:21:53 CDT CPT-OV Office Visit 15:49:22 CDT CPT-OV Office Visit 17:16:31 CDT CPT-OV Office Visit 10:43:31 CDT
--- OUTSIDE RECORDS SUMMARY | 2019-02-09 12:40 | XMS REPORT | Clinical Summary ---
Author Author Renaldo, Florecita Munoz Organization [facility] Address Unknown Phone Unavailable Allergies, Adverse Reactions, [...] nd digestive system, NEC V58.75 Resolved Adam Yatse MD Af tercare following surgery of the [...] Sebaceous cyst, scalp 706.2 Resolved Kylie Holt COMBAT ENGINEER Sebaceous cyst Cervical lymphadenopathy, anterior, left 785.6 Active Kylie Holt COMBAT ENGINEER Enlargement of lymph nodes Need for prophylactic vaccination and inoculation against in fluenza V04.81 Active Citlaly Watkins RMA Need for prophylactic vaccination and inoculation against influenza ABDOMINAL PAIN, RIGHT LOWER QUADRANT ICD-789.03 Inactive Kina Joshua COMBAT ENGINEER ADENOCARCINOMA, COLON, 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 Dick Yates MD ABDOMINAL PAIN, GENERALIZED ICD-789.07 Inactive Hope Benavidez MD PhD FEVER UNSPECIFIED ICD-780.60 Inactive Hope cohn MD PhD UNSPECIFIED VENOUS INSUFFICIENCY ICD-459.81 [place] ctive Adam Yates MD ADENOCARCINOMA, ASCENDING COLON [...] Sebaceous cyst, scalp ICD-706.2 Inactive Tracy Holt COMBAT ENGINEER Medication List Medication Instructions Start Date Stop Date Generic Name ND Status Provider Patient Instruction LOMOTIL 2.5-0.025 MG TABS 1 tab by mouth prn 4 DIPHENOXYLATE-ATROPINE 83050278403 No Longer Active Kylie Lundum COMBAT ENGINEER Active MAGNESIUM GLUCONATE 250 MG TABS 1 tab tid 4 MAGNESIUM GLUCONATE 34293024364 No Longer Active Kylie Escalonakum COMBAT ENGINEER Active CYANOCOBALAMIN 1000 MCG/ML INJ SOLN 1 injection every 2 weeks 20 20/01/03 CYANOCOBALAMIN 87952538945 No Longer Active Kylie Holt COMBAT ENGINEER Active ATENOLOL 25 MG ORAL TABS 1/2 pill by mouth daily, for headac hes, blood pressure ATENOLOL 86668432388 Active Courtney Zaman COMBAT ENGINEER Active PROPRANOLOL HCL 80 MG TABS 1 tab tue. and thur. 04/10 PROPRANOLOL HCL 53404975645 No Longer Active Hope Benavidez MD PhD A ctive IRON 325 (65 FE) MG TABS 1 every other day FERROUS SULFATE 86896475966 Active Hope Benavidez MD PhD Active VITAMIN D3 4000 IU 1 tab 3 times daily VITAMIN D3 4000 IU No Longer Active Hope Benavidez MD PhD Active BACTRIM DS 800-160 MG TABS 1 pill by mouth twice daily, for UTI SULFAMETHOXAZOLE-TRIMETHOPRIM 66096201482 No Longer Active Lisa Benavidez MD PhD Active PROLIA 60 MG/ML SOLN 1 shot every 6 months for osteoprosis DENOSUMAB 42465428230 Active Hope Benavidez MD PhD Active CALCIUM + D + K 750-500-40 MG-UNT-MCG TABS 1 tab by mouth tw ice daily CALCIUM-VITAMIN D-VITAMIN K 99464572251 Active Hope landers MD PhD Active DAILY VALUE MULTIVITAMIN TABS 1 tab by mouth twice daily MULTIPLE VITAMIN 55255898812 Active Hope Benavidez MD PhD Active FISH OIL 306 MG CAPS 1 tab by mouth three times daily OMEGA-3 FATTY ACIDS 52625563128 Active Hope Benavidez MD PhD Active LUTEIN 10 MG TABS 1 tab daily LUTEIN 67965832153 Act cash Hope Benavidez MD PhD Active FLORANEX PACK 1 pack three times daily, for bowel health LACTOBACILLUS 28113848765 Active Hope Benavidez MD PhD Active TRIAMTERENE-HCTZ 37.5-25 MG TABS 1 tab by mouth daily TRIAMTERENE-HCTZ 82009564515 Active Kylie Holt COMBAT ENGINEER Active CYCLOBENZAPRINE HCL 10 MG TABS 1 tablet by mouth three times daily as needed for headaches CYCLOBENZAPRINE HCL 10069709643 No Longe r Active Adam Yates MD Active OMEPRAZOLE 20 MG CPDR 1 tablet by mouth daily for GERD OMEPRAZOLE 10683466516 No Longer Active Adam Yates MD A ctive ZOFRAN 8 MG TABS 1 tab by mouth every 12 hours prn 201 05/16/09 ONDANSETRON HCL 88981603280 No Longer Active Adam Yates MD Active PHENADOZ 25 MG SUPP 1 every 4 hrs. PRN PROMETHA ZINE HCL 54846889074 No Longer Active Adam Yates MD Active POTASSIUM CHLORIDE 20 MEQ PACK by mouth twice a day prn POTASSIUM CHLORIDE 06310886025 No Longer Active Adam Yates MD Active PROMETHAZINE HCL 25 MG TABS 1 Q. 4 hr. PRN PROM ETHAZINE HCL 65880060538 No Longer Active Adam Yates MD Active INNOPRAN XL 120 MG [id number] Take one by mouth daily 2 PROPRANOLOL HCL SR BEADS 82099469093 No Longer Active Adam Yates MD A ctive FLAGYL 500 MG TABS 1 pill by mouth three times daily, for diarrh ea METRONIDAZOLE 77771454425 No Longer Active Hope Benavidez MD PhD Active DYAZIDE 37.5-25 MG CAPS 1 qd TRIAMTERENE-HC TZ 76560567113 No Longer Active Hope Benavidez MD PhD Active PROZAC 20 MG CAPS 1 q d FLUOXETINE HCL 88059 452029 No Longer Active Hope Benavidez MD PhD Active SIMVASTATIN 40 MG TABS 1 qd SIMVASTATIN 004 87282217 No Longer Active Adam Yates MD Active MELOXICAM 15 MG TABS 1 qd MELOXICAM 7171898 7701 No Longer Active Adam Yates MD Active IMODIUM A-D 2 MG TABS 2 onset at diarrhea and prn. LOPERAMIDE HCL 27326249568 Active Hope Benavidez MD PhD Active EXCEDRIN EXTRA STRENGTH 250-250-65 MG TABS 1-2 q6h PRN headache 201 04/16/21 [id number] 10602523553 Active Hope Benavidez MD PhD Active FLAGYL 500 MG TABS 1 qid METRONIDAZOLE 20319 589268 No Longer Active Adam Yates MD Active LEVAQUIN 750 MG TABS 1 qd LEVOFLOXACIN 5486 9440926 No Longer Active Adam Yates MD Active ADULT ASPIRIN LOW STRENGTH 81 MG TBDP 1 qd A SPIRIN 52470555473 Active Hope Benavidez MD PhD Active LEVAQUIN 750 MG TABS 1 qd LEVAQUIN 750 MG T ABS 547060 LEVOFLOXACIN Inactive FLAGYL 500 MG TABS 1 qid FLAGYL 500 MG TABS 978612 METRONIDAZOLE Inactive MELOXICAM 15 MG TABS 1 qd MELOXICAM 15 MG T ABS 204039 MELOXICAM Inactive SIMVASTATIN 40 MG TABS 1 qd SIMVASTATIN 40 MG TABS 653853 SIMVASTATIN Inactive PROZAC 20 MG CAPS 1 q d PROZAC 20 MG CAPS 31 0385 FLUOXETINE HCL Inactive DYAZIDE 37.5-25 MG CAPS 1 qd DYAZIDE 37.5 -25 MG CAPS 835354 TRIAMTERENE-HCTZ Inactive INNOPRAN XL 120 MG [id number] Take one by mouth daily 2 INNOPRAN XL 120 MG [id number] PROPRANOLOL HCL SR BEADS Inactive PROMETHAZINE HCL 25 MG TABS 1 Q. 4 hr. PRN PROMETHAZINE HCL 25 MG TABS 380253 PROMETHAZINE HCL Inactive POTASSIUM CHLORIDE 20 MEQ PACK by mouth twice a day prn POTASSIUM CHLORIDE 20 MEQ PACK 199340 POTASSIUM CHLORIDE Inactive PHENADOZ 25 MG SUPP 1 every 4 hrs. PRN PHENADOZ 2 5 MG SUPP 036614 PROMETHAZINE HCL Inactive ZOFRAN 8 MG TABS 1 tab by mouth every 12 hours prn 201 05/16/09 ZOFRAN 8 MG TABS 532593 ONDANSETRON HCL Inactive OMEPRAZOLE 20 MG CPDR 1 tablet by mouth daily for GERD OMEPRAZOLE 20 MG CPDR 233320 OMEPRAZOLE Inactive CYCLOBENZAPRINE HCL 10 MG TABS 1 tablet by mouth three times daily as needed for headaches CYCLOBENZAPRINE HCL 10 MG TABS 817097 CYCLOBENZAPRINE HCL Inactive VITAMIN D3 4000 IU 1 tab 3 times daily VITAMIN D3 4000 IU Inactive PROPRANOLOL HCL 80 MG TABS 1 tab tue. and thur. 04/10 PROPRANOLOL HCL 80 MG TABS 261696 PROPRANOLOL HCL Inactive CYANOCOBALAMIN 1000 MCG/ML INJ SOLN 1 injection every 2 weeks 20 20/01/03 CYANOCOBALAMIN 1000 MCG/ML INJ SOLN 172580 CYANOCOBALAM IN Inactive MAGNESIUM GLUCONATE 250 MG TABS 1 tab tid 4 MAGNESIUM GLUCONATE 250 MG TABS 698014 MAGNESIUM GLUCONATE Inactive LOMOTIL 2.5-0.025 MG TABS 1 tab by mouth prn 4 LOMOTIL 2.5- 0.025 MG TABS 9638360 DIPHENOXYLATE-ATROPINE Inactive FLAGYL 500 MG TABS 1 pill by mouth three times daily, for diarrh ea FLAGYL 500 MG TABS 926985 METRONIDAZOLE Inactive BACTRIM DS 800-160 MG TABS 1 pill by mouth twice daily, for UTI BACTRIM DS 800-160 MG TABS 094217 SULFAMETHOXAZOLE-TRIM ETHOPRIM Inactive Advance Directives Directive Description [...] Panel - Chemistry sodium, serum 138 mmol/L 011-942 8596/10/23 carbon dioxide, venous blood 29.5 mmol/L 21.0-32 .0 potassium, serum 3.7 mmol/L 3.5-5.2 chloride, serum 100 mmol/L 98-107 blood glucose 93 mg/dL 65-110 urea nitrogen, blood 29 mg/dL 7-18 creatinine, serum 1.25 mg/dL 0.55-1.30 alanine aminotransferase (SGPT), serum 50 U/L 12-78 aspartate aminotransferase (SGOT), serum 34 U/L 15-37 calcium, serum 9.5 mg/dL 8.5-10.1 bilirubin, serum, total 0.40 mg/dL 0.00-1.00 sodium, serum 142 mmol/L 370-220 7314/04/20 carbon dioxide, venous blood 34.7 mmol/L 21.0-32 [...] 11 .6-14.8 platelet count 189 10^3/MM^3 10*3/mm3 262-572 6418/04/20 leukocyte count, blood 5.9 10^3/MM^3 10*3/mm3 4.6-10.2 [...] 1.24 m[iU]/mL 0.36-3.74 cholesterol, serum 227 mg/dL 020-342 7767/10/23 triglyceride, serum, fasting 144 mg/dL 30-200 HDL cholesterol, serum 60 mg/dL 32-96 LDL cholesterol, serum 138 mg/dL 0-130 Lab Report: Lipid Panel, MICROALBUMIN, T hyroid Stimulating Hormone (L) - Lab microalbumin, urine 10 0-19 Encounters Code Encounter Date Provider Facility CPT-94202 Level 3 Est. Patient 13:15:54 CDT Kylieshubham Lund [facility] CPT-77955 Level 3 Est. Patient 09:10:11 CDT [facility] Kevon [facility] CPT-75628 Level 4 Est. Patient 12:08:30 LEAD HOUSEKEEPER Hope cohn MD PhD [facility] CPT-91287 Level 4 Est. Patient 19:08:42 LEAD HOUSEKEEPER Hope cohn MD PhD [facility] CPT-84177 Level 4 Est. Patient 20:04:51 CDT Hope cohn MD PhD [facility] CPT-78481 Level 3 New Patient 01:46:11 LEAD HOUSEKEEPER Hope landers MD PhD [facility] Procedures Code Procedure Name Date Entry Date Standard Desc ription CPT-J0897 Prolia 60 mg 16:09:34 LEAD HOUSEKEEPER CPT-J0897 Prolia 60 mg 11:10:35 LEAD HOUSEKEEPER CPT-07570 Abx/Therapy Injection 11:10:35 LEAD HOUSEKEEPER CPT-000 Give Appropriate Flu Vaccine 17:01:15 LEAD HOUSEKEEPER 2 CPT-59300 Fluzone High Dose (65+) 15:03:08 LEAD HOUSEKEEPER 02/15 CPT-96310 Immunization Single Admin 15:03:08 LEAD HOUSEKEEPER 2014 CPT-OV Office Visit 15:58:06 CDT CPT-J0897 Prolia 60 mg 08:45:38 CDT CPT-99091 Abx/Therapy Injection 08:45:38 CDT CPT-J3420 Vitamin B12 1000mcg (Cyanocobalamin) 09:26:20 LEAD HOUSEKEEPER CPT-55134 Abx/Therapy Injection 09:26:20 LEAD HOUSEKEEPER CPT-J3420 Vitamin B12 1000mcg (Cyanocobalamin) 09:44:40 LEAD HOUSEKEEPER CPT-36522 Abx/Therapy Injection 09:44:40 LEAD HOUSEKEEPER CPT-J3420 Vitamin B12 1000mcg (Cyanocobalamin) 09:15:54 LEAD HOUSEKEEPER CPT-27101 Abx/Therapy Injection 09:15:54 LEAD HOUSEKEEPER CPT-J3420 Vitamin B12 1000mcg (Cyanocobalamin) 09:46:44 LEAD HOUSEKEEPER CPT-96848 Abx/Therapy Injection 09:46:44 LEAD HOUSEKEEPER CPT-J3420 Vitamin B12 1000mcg (Cyanocobalamin) 09:47:34 LEAD HOUSEKEEPER CPT-10861 Abx/Therapy Injection 09:47:34 LEAD HOUSEKEEPER CPT-J3420 Vitamin B12 1000mcg (Cyanocobalamin) 14:35:50 LEAD HOUSEKEEPER CPT-J3420 Vitamin B12 1000mcg (Cyanocobalamin) 09:25:05 LEAD HOUSEKEEPER CPT-86415 Abx/Therapy Injection 09:25:05 LEAD HOUSEKEEPER CPT-G0008 Administration of Influenza Virus Vaccine 13:36:47 CDT CPT-18126 Fluzone High-Dose Intramuscular Suspension 11/15 13:36:47 CDT CPT-J0897 Prolia 60 mg 08:50:41 CDT CPT-76322 Abx/Therapy Injection 08:50:41 CDT CPT-82444 Bone Density 12:06:12 CDT CPT-07104 Bone Density 08:54:40 CDT CPT-OV Office Visit 15:37:02 CDT CPT-52439 Postop F/U Visit 15:47:49 CDT CPT-73477 Postop F/U Visit 15:21:02 CDT CPT-TCMH Transitional Care Mgmt-High 07:52:27 CDT 20 20/06/01 CPT-01150 Venipuncture Draw Fee 13:51:18 CDT CPT-60505 Venipuncture Draw Fee 10:14:55 LEAD HOUSEKEEPER CPT-55670 Venipuncture Draw Fee 13:39:45 LEAD HOUSEKEEPER CPT-OV Office Visit 15:11:22 LEAD HOUSEKEEPER CPT-12528 Venipuncture Draw Fee 09:20:49 LEAD HOUSEKEEPER CPT-52652 Venipuncture Draw Fee 16:52:15 LEAD HOUSEKEEPER CPT-19452 Venipuncture Draw Fee 10:37:24 LEAD HOUSEKEEPER CPT-69957 Venipuncture Draw Fee 08:21:21 LEAD HOUSEKEEPER CPT-78054 Venipuncture Draw Fee 08:30:20 LEAD HOUSEKEEPER CPT-10709 Venipuncture Draw Fee 14:53:21 LEAD HOUSEKEEPER CPT-35760 Venipuncture Draw Fee 09:40:56 LEAD HOUSEKEEPER CPT-82150 Venipuncture Draw Fee 10:30:47 LEAD HOUSEKEEPER CPT-22294 Venipuncture Draw Fee 10:46:17 LEAD HOUSEKEEPER CPT-84625 Venipuncture Draw Fee 11:12:45 LEAD HOUSEKEEPER CPT-22620 Venipuncture Draw Fee 09:53:33 LEAD HOUSEKEEPER CPT-66945 Venipuncture Draw Fee 11:53:51 LEAD HOUSEKEEPER CPT-98606 Venipuncture Draw Fee 10:33:50 LEAD HOUSEKEEPER CPT-55955 Venipuncture Draw Fee 10:05:01 LEAD HOUSEKEEPER CPT-13069 Venipuncture Draw Fee 14:32:52 LEAD HOUSEKEEPER CPT-28761 Venipuncture Draw Fee 09:46:13 LEAD HOUSEKEEPER CPT-48330 Venipuncture Draw Fee 11:34:27 LEAD HOUSEKEEPER CPT-41004 Venipuncture Draw Fee 13:17:16 LEAD HOUSEKEEPER CPT-26144 Venipuncture Draw Fee 12:05:39 CDT CPT-89244 Venipuncture Draw Fee 12:49:12 CDT CPT-95950 Venipuncture Draw Fee 12:37:18 CDT CPT-72394 Venipuncture Draw Fee 10:57:11 CDT CPT-53991 Venipuncture Draw Fee 13:47:40 CDT CPT-08287 Venipuncture Draw Fee 10:02:17 CDT CPT-77836 TB Tubersol 17:32:32 CDT CPT-OV Office Visit 16:21:53 CDT CPT-OV Office Visit 15:49:22 CDT CPT-OV Office Visit 17:16:31 CDT CPT-OV Office Visit 10:43:31 CDT
--- OUTSIDE RECORDS SUMMARY | 2019-02-09 12:40 | XMS REPORT | Clinical Summary ---
Author Author Admin, Florecita Munoz Organization [facility] [employer] Address Unknown Phone Unavailable Allergies, Adverse [...] Sebaceous cyst, scalp 706.2 Resolved Kylie Yokum [employer] Sebaceous cyst Cervical lymphadenopathy, anterior, left 785.6 Resolv ed Kylie Yokum [employer] Enlargement of lymph nodes Need for prophylactic vaccination and inoculation against in fluenza V04.81 Resolved Adam Yates MD Need for prophylactic vaccination and inoculation against influenza Preventive health care V70.0 Active Kylie Yokum [employer] Routine general medical examination at a health care facility Thyroid nodule, left 241.0 Active Kylie Yokum A PRN Nontoxic uninodular goiter Screening mammogram V76.12 Active Kylie Yokum AP RN Other screening mammogram Mandy 706.2 Resolved Kylie Yokum [employer] Sebaceous cyst Colon cancer, ascending 153.6 Resolved Kylie Yok um [employer] Malignant neoplasm of ascending colon Foot pain, left 729.5 Active Sulema Naff [employer] Pain in limb Splinter 919.6 Active Kylie Yokum [employer] Superficial foreign body (splinter) of other, multiple, and unspecified sites, without major open wound and without mention of infection Rash 782.1 Active Kylie Yokum [employer] R aurora and other nonspecific skin eruption ABDOMINAL PAIN, RIGHT LOWER QUADRANT ICD-789.03 Inactive Kina Joshua [employer] ADENOCARCINOMA, COLON, 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 Dick Yates MD ABDOMINAL PAIN, GENERALIZED ICD-789.07 Inactive Hope Benavidez MD PhD FEVER UNSPECIFIED ICD-780.60 Inactive Hope cohn MD PhD UNSPECIFIED VENOUS INSUFFICIENCY ICD-459.81 Elda ctive Adam Yates MD ADENOCARCINOMA, 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 Inac tive Hope Benavidez MD PhD Hyperkalemia ICD-276.7 Inactive Hope Benavidez MD PhD GERD ICD-530.81 Inactive Kylie Yanet [employer] 2015 Health maintenance exam ICD-V70.0 Bam Yates MD Anemia ICD-285.9 Inactive Kylie Yanet [employer] 07/24 Hypomagnesemia ICD-275.2 Inactive Kylie Yogabbium [employer]ENDER Weakness ICD-780.79 Inactive Hope Benavidez MD [...] Sebaceous cyst, scalp ICD-706.2 Inactive Tracy Lundum [employer] Cervical lymphadenopathy, anterior, left ICD-785.6 Inactive Kylie Lundum [employer] Need for prophylactic vaccination and inoculation against in fluenza ICD-V04.81 Inactive Adam Yates MD Mandy ICD-706.2 Inactive Kylie Lundum AMY 07/20 Colon cancer, ascending ICD-153.6 Inactive Gabbi Escalonagabbioliver AMY Medication List Medication Instructions Start Date Stop Date Generic Name ND Status Provider Patient Instruction VOLTAREN 1 % TRANSDERMAL GEL apply q 6-8 hour to left arm as needed for pain DICLOFENAC SODIUM 44838714152 Active Kylie Lundum [employer] Active COQ10 100 MG ORAL CAPSULE 1 daily COENZYME Q10 291920 97891 Active LETY Nation Active VITAMIN D3 2000 UNIT ORAL CAPSULE Melaleuca-One daily CHOLECALCIFEROL 51809749394 Active Kylie Lundum [employer]END[employer] Active PROBIOTIC DAILY ORAL CAPSULE Take one daily PROBIO TIC PRODUCT 20354693841 Active Kylie Escalonakum [employer]ENDER Active IRON 325 (65 Fe) MG ORAL TABLET 1 every other day FERROUS SULFATE 58354518487 No Longer Active Kylie Lundum [employer] Active FLORANEX ORAL PACKET 1 pack three times daily, for bowel health LACTOBACILLUS 18923438591 No Longer Active Kylie Kevonum [employer]ENDER Active LOMOTIL 2.5-0.025 MG ORAL TABLET 1 tab by mouth prn 23/10/23 DIPHENOXYLATE-ATROPINE 04435280073 No Longer Active Kylie Yokum [employer]ENDER Active MAGNESIUM GLUCONATE 250 MG ORAL TABLET 1 tab tid 23/10/23 MAGNESIUM GLUCONATE 68633928682 No Longer Active Kylie Yokum [employer]ENDER Active CYANOCOBALAMIN 1000 MCG/ML INJECTION SOLUTION 1 injection ev ruben 2 weeks CYANOCOBALAMIN 48125347566 No Longer Active Kylie Lund um [employer]ENDER Active ATENOLOL 25 MG ORAL TABLET 1/2 pill by mouth daily, fo r headaches, blood pressure ATENOLOL 08440888276 Active Kylie Lundum [employer]ENDER Active PROPRANOLOL HCL 80 MG ORAL TABLET 1 tab tue. and thur. PROPRANOLOL HCL 92911814996 No Longer Active Hope Benavidez MD PhD A ctive VITAMIN D3 4000 IU 1 tab 3 times daily VITAMIN D3 4000 IU No Longer Active Hope Benavidez MD PhD Active BACTRIM DS 800-160 MG ORAL TABLET 1 pill by mouth twice claudio y, for UTI SULFAMETHOXAZOLE-TRIMETHOPRIM 66841424382 No Longer Active Hope Benavidez MD PhD Active PROLIA 60 MG/ML SUBCUTANEOUS SOLUTION 1 shot every 6 months for osteoprosis DENOSUMAB 99979158066 Active Hope Benavidez MD PhD Active CALCIUM + D + K 750-500-40 MG-UNT-MCG ORAL TABLET 1 tab by [facility] twice daily CALCIUM-VITAMIN D-VITAMIN K 67388811732 Active Hope valdez MD PhD Active DAILY VALUE MULTIVITAMIN ORAL TABLET 1 tab by mouth twice daily 201 05/16/14 MULTIPLE VITAMIN 59876969910 Active Hope Benavidez MD PhD Acti ve FISH OIL 306 MG CAPS 1 tab by mouth three times daily OMEGA-3 FATTY ACIDS 73427027247 Active Hope Benavidez MD PhD Active LUTEIN 10 MG ORAL TABLET 1 tab daily LUTEIN 90345824 408 Active Hope Benavidez MD PhD Active TRIAMTERENE-HCTZ 37.5-25 MG ORAL TABLET 1 tab by mouth daily 10/22 TRIAMTERENE-HCTZ 64675212457 Active LETY Rossi Activ aarti CYCLOBENZAPRINE HCL 10 MG ORAL TABLET 1 tablet by mout h three times daily as needed for headaches CYCLOBENZAPRINE HCL 12670044987 No Longer Active Adam Yates MD Active OMEPRAZOLE 20 MG ORAL CAPSULE DELAYED RELEASE 1 tablet by mo [facility] daily for GERD OMEPRAZOLE 02172768566 No Longer Active Adam Yates MD Active ZOFRAN 8 MG ORAL TABLET 1 tab by mouth every 12 hours prn 4 ONDANSETRON HCL 01521702679 No Longer Active Adam Yates MD Active PHENADOZ 25 MG RECTAL SUPPOSITORY 1 every 4 hrs. PRN 2 PROMETHAZINE HCL 85352490630 No Longer Active Adam Yates MD A ctive POTASSIUM CHLORIDE 20 MEQ ORAL PACKET by mouth twice a day prn 2 POTASSIUM CHLORIDE 26142881963 No Longer Active Adam Carpenter MD Active PROMETHAZINE HCL 25 MG ORAL TABLET 1 Q. 4 hr. PRN PROMETHAZINE HCL 65449603108 No Longer Active Adam Yates MD Active INNOPRAN XL 120 MG ORAL CAPSULE EXTENDED RELEASE 24 HO UR Take one by mouth daily PROPRANOLOL HCL SR BEADS 36748833434 No Longer Active Adam Yates MD Active FLAGYL 500 MG ORAL TABLET 1 pill by mouth three times daily, for diarrhea METRONIDAZOLE 39699753274 No Longer Active Hope landers MD PhD Active DYAZIDE 37.5-25 MG ORAL CAPSULE 1 qd TRIA MTERENE-HCTZ 89356450839 No Longer Active Hope Benavidez MD PhD Active PROZAC 20 MG ORAL CAPSULE 1 q d FLUOXETINE HCL 49241087478 No Longer Active Hope Benavidez MD PhD Active SIMVASTATIN 40 MG ORAL TABLET 1 qd SIMVAS TATIN 93892462871 No Longer Active Adam Yates MD Active MELOXICAM 15 MG ORAL TABLET 1 qd MELOXICAM 10515055991 No Longer Active Adam Yates MD Active IMODIUM A-D 2 MG ORAL TABLET 2 onset at diarrhea and prn. LOPERAMIDE HCL 40877957559 Active Hope Benavidez MD PhD Active EXCEDRIN EXTRA STRENGTH 250-250-65 MG ORAL TABLET 1-2 q6h GA N headache [id number]-[id number] 37915966209 Active Hope Benavidez MD PhD Active FLAGYL 500 MG ORAL TABLET 1 qid METRONIDAZOL E 70819834171 No Longer Active Adam Yates MD Active LEVAQUIN 750 MG ORAL TABLET 1 qd LEVOFLOXAC IN 12522078233 No Longer Active Adam Yates MD Active ADULT ASPIRIN LOW STRENGTH 81 MG ORAL TABLET DISINTEGRATING 1 qd ASPIRIN 40985663767 Active Hope Benavidez MD PhD Active LEVAQUIN 750 MG ORAL TABLET 1 qd LEVAQUIN 750 MG ORAL TABLET 406818 LEVOFLOXACIN Inactive FLAGYL 500 MG ORAL TABLET 1 qid FLAGYL 500 MG ORAL TABLET 784277 METRONIDAZOLE Inactive MELOXICAM 15 MG ORAL TABLET 1 qd MELOXICAM 15 MG ORAL TABLET 233990 MELOXICAM Inactive SIMVASTATIN 40 MG ORAL TABLET 1 qd SIMVASTATIN 40 MG ORAL TABLET 428959 SIMVASTATIN Inactive PROZAC 20 MG ORAL CAPSULE 1 q d PROZAC 20 MG ORAL CAPSULE 459875 FLUOXETINE HCL Inactive DYAZIDE 37.5-25 MG ORAL CAPSULE 1 qd 5 DYAZIDE 37.5-25 MG ORAL CAPSULE 286235 TRIAMTERENE-HCTZ Inactive INNOPRAN XL 120 MG ORAL CAPSULE EXTENDED RELEASE 24 HO UR Take one by mouth daily INNOPRAN XL 120 MG ORAL CAPSULE EXTENDED RELEASE 24 HOUR PROPRANOLOL HCL SR BEADS Inactive PROMETHAZINE HCL 25 MG ORAL TABLET 1 Q. 4 hr. PRN 2013 PROMETHAZINE HCL 25 MG ORAL TABLET 189290 PROMETHAZINE HCL Inactive POTASSIUM CHLORIDE 20 MEQ ORAL PACKET by mouth twice a day prn 2 POTASSIUM CHLORIDE 20 MEQ ORAL PACKET 4798331 POTASSIUM CHLORIDE Inactive PHENADOZ 25 MG RECTAL SUPPOSITORY 1 every 4 hrs. PRN 2 PHENADOZ 25 MG RECTAL SUPPOSITORY 721686 PROMETHAZINE HCL Inactive ZOFRAN 8 MG ORAL TABLET 1 tab by mouth every 12 hours prn 4 ZOFRAN 8 MG ORAL TABLET 815148 ONDANSETRON HCL Inactive OMEPRAZOLE 20 MG ORAL CAPSULE DELAYED RELEASE 1 tablet by mo uth daily for GERD OMEPRAZOLE 20 MG ORAL CAPSULE DELAYED RELEASE 19 8051 OMEPRAZOLE Inactive CYCLOBENZAPRINE HCL 10 MG ORAL TABLET 1 tablet by mout h three times daily as needed for headaches CYCLOBENZAPRINE HCL 10 MG ORAL TABLET 197230 CYCLOBENZAPRINE HCL Inactive VITAMIN D3 4000 IU 1 tab 3 times daily VITAMIN D3 4000 IU Inactive PROPRANOLOL HCL 80 MG ORAL TABLET 1 tab tue. and thur. PROPRANOLOL HCL 80 MG ORAL TABLET 359427 PROPRANOLOL HCL Inacti ve CYANOCOBALAMIN 1000 MCG/ML INJECTION SOLUTION 1 injection ev ruben 2 weeks CYANOCOBALAMIN 1000 MCG/ML INJECTION SOLUTION 30 9594 CYANOCOBALAMIN Inactive MAGNESIUM GLUCONATE 250 MG ORAL TABLET 1 tab tid 20 23/10/23 MAGNESIUM GLUCONATE 250 MG ORAL TABLET 478748 MAGNESIUM GLUCONATE Inactive LOMOTIL 2.5-0.025 MG ORAL TABLET 1 tab by mouth prn 20 23/10/23 LOMOTIL 2.5-0.025 MG ORAL TABLET 1349810 DIPHENOXYLATE-ATROPINE Inac tive FLORANEX ORAL PACKET 1 pack three times daily, for bowel health FLORANEX ORAL PACKET LACTOBACILLUS Inactive IRON 325 (65 Fe) MG ORAL TABLET 1 every other day 2015 IRON 325 (65 Fe) MG ORAL TABLET 152322 FERROUS SULFATE Inactive FLAGYL 500 MG ORAL TABLET 1 pill by mouth three times daily, for diarrhea FLAGYL 500 MG ORAL TABLET 927174 METRONIDAZOLE I nactive BACTRIM DS 800-160 MG ORAL TABLET 1 pill by mouth twice claudio y, for UTI BACTRIM DS 800-160 MG ORAL TABLET 458945 SULFAMETHOXAZOLE-TRIMETHOPRIM Inactive Advance Directives Directive Description Start [...] ... - Chemistry sodium, serum 138 mmol/L 660-304 1486/12/15 potassium, serum 4.0 mmol/L 3.5-5.2 chloride, serum [...] 11 .0-15.0 platelet count 157 THOUSAND/UL 10*3/mm3 009-933 4098/04/20 mean platelet volume 8.9 fL 7.5-12.5 Lab Report: CEA - Serology carcinoembryonic antigen 0.9 ng/mL Encounters Code Encounter Date Provider Facility CPT-80075 Level 2 Est. Patient 14:27:16 [employer] Kylie boyd [facility] CPT-48645 Level 3 Est. Patient 17:54:48 CDT Kylie boyd [facility] CPT-53470 Level 3 Est. Patient 16:26:30 CDT Kina blackmon [facility] CPT-48846 Level 3 New Patient 16:22:01 [employer] Adam Yates MD [facility] CPT-46875 Level 4 Est. Patient 17:00:48 CDT [facility]ylie boyd [facility] CPT-07783 Level 3 Est. Patient 13:15:54 CDT Kylie boyd [facility] CPT-42705 Level 3 Est. Patient 09:10:11 CDT Kylie Lund [facility] CPT-75173 Level 4 Est. Patient 12:08:30 [employer] Hope cohn MD [facility] CPT-53747 Level 4 Est. Patient 19:08:42 [employer] Hope cohn MD [facility] CPT-12850 Level 4 Est. Patient 20:04:51 CDT Hope cohn MD [facility] CPT-96605 Level 3 New Patient 01:46:11 [employer] Hope landers MD PhD [facility] Procedures Code Procedure Name Date Entry Date Standard Desc ription CPT-J0897 Prolia 60 mg 15:46:54 [employer] CPT-27678 Abx/Therapy Injection 15:46:54 [employer] CPT-83622 Microalbumin - LAB USE ONLY 09:41:32 [employer] 20 23/01/15 CPT-18043 Free T4 - LAB USE ONLY 09:41:32 [employer] CPT-29333 TSH - LAB USE ONLY 09:41:32 [employer] CPT-66115 BMP - LAB USE ONLY 09:41:32 [employer] CPT-79629 Venipuncture Draw Fee 09:41:32 [employer] CPT-94948 First Vx - Ix admin for Medicare patients 11:19:30 CDT CPT-38955 Fluzone High-Dose Intramuscular Suspension 12/07 11:19:30 CDT CPT-J0897 Prolia 60 mg 14:55:42 CDT CPT-89467 Abx/Therapy Injection 14:55:42 CDT CPT-59223 Bone Density - XRAY USE ONLY 10:27:12 CDT 2 CPT-G0439 Subsequent Annual Wellness Exam 17:54:53 CDT CPT-63676 Foot, left, comp min 3V - XRAY USE ONLY 12:22:49 CDT CPT-G0009 Administration of Pneumococcal Vaccine 3 12:18:00 CDT CPT-86531 Pneumovax 23 Injection Injectable 25 MCG /0.5ML 12:18:00 CDT CPT-J0897 Prolia 60 mg 14:14:16 [employer] CPT-15187 Abx/Therapy Injection 14:14:15 [employer] CPT-87738 Lipid - LAB USE ONLY 10:01:52 [employer] 2 CPT-94421 Calcium - LAB USE ONLY 10:01:51 [employer] CPT-19614 Venipuncture Draw Fee 10:01:51 [employer] 2016/11/ 22 CPT-LR Lesion Removal 16:22:01 [employer] CPT-66243 TSH - LAB USE ONLY 14:26:02 CDT CPT-90159 CMP - LAB USE ONLY 14:26:01 CDT CPT-81425 CBC with Diff - LAB USE ONLY 14:26:01 CDT 2 CPT-08916 Venipuncture Draw Fee 14:26:01 CDT CPT-02554 First Vx - Ix admin for Medicare patients 13:27:08 CDT CPT-98727 Fluzone High-Dose Intramuscular Suspension 11/26 13:27:08 CDT CPT-G0438 Initial Annual Wellness Exam 14:19:57 CD T CPT-G0009 Administration of Pneumococcal Vaccine 9 11:36:25 CDT CPT-46637 Prevnar 13 Intramuscular Suspension 1 1:36:25 CDT CPT-08555 Prevnar 13 Intramuscular Suspension 1 0:40:58 CDT CPT-J0897 Prolia 60 mg 10:37:16 CDT CPT-97011 Abx/Therapy Injection 10:37:16 CDT CPT-J0897 Prolia 60 mg 16:09:34 [employer] CPT-J0897 Prolia 60 mg 11:10:35 [employer] CPT-24362 Abx/Therapy Injection 11:10:35 [employer] CPT-000 Give Appropriate Flu Vaccine 17:01:15 [employer] 2 CPT-05872 Fluzone High Dose (65+) 15:03:08 [employer] 02/15 CPT-84453 Immunization Single Admin 15:03:08 [employer] 2014 CPT-OV Office Visit 15:58:06 CDT CPT-J0897 Prolia 60 mg 08:45:38 CDT CPT-52734 Abx/Therapy Injection 08:45:38 CDT CPT-J3420 Vitamin B12 1000mcg (Cyanocobalamin) 09:26:20 [employer] CPT-76674 Abx/Therapy Injection 09:26:20 [employer] CPT-J3420 Vitamin B12 1000mcg (Cyanocobalamin) 09:44:40 [employer] CPT-73348 Abx/Therapy Injection 09:44:40 [employer] CPT-J3420 Vitamin B12 1000mcg (Cyanocobalamin) 09:15:54 [employer] CPT-04506 Abx/Therapy Injection 09:15:54 [employer] CPT-J3420 Vitamin B12 1000mcg (Cyanocobalamin) 09:46:44 [employer] CPT-50819 Abx/Therapy Injection 09:46:44 [employer] CPT-J3420 Vitamin B12 1000mcg (Cyanocobalamin) 09:47:34 [employer] CPT-74797 Abx/Therapy Injection 09:47:34 [employer] CPT-J3420 Vitamin B12 1000mcg (Cyanocobalamin) 14:35:50 [employer] CPT-J3420 Vitamin B12 1000mcg (Cyanocobalamin) 09:25:05 [employer] CPT-33268 Abx/Therapy Injection 09:25:05 [employer] CPT-G0008 Administration of Influenza Virus Vaccine 13:36:47 CDT CPT-34491 Fluzone High-Dose Intramuscular Suspension 11/15 13:36:47 CDT CPT-J0897 Prolia 60 mg 08:50:41 CDT CPT-27699 Abx/Therapy Injection 08:50:41 CDT CPT-72646 Bone Density 12:06:12 CDT CPT-76282 Bone Density 08:54:40 CDT CPT-OV Office Visit 15:37:02 CDT CPT-13906 Postop F/U Visit 15:47:49 CDT CPT-71888 Postop F/U Visit 15:21:02 CDT CPT-TCM Transitional Care Mgmt-High 07:52:27 CDT 20 20/06/01 CPT-84266 Venipuncture Draw Fee 13:51:18 CDT CPT-33408 Venipuncture Draw Fee 10:14:55 [employer] CPT-89010 Venipuncture Draw Fee 13:39:45 [employer] CPT-OV Office Visit 15:11:22 [employer] CPT-51783 Venipuncture Draw Fee 09:20:49 [employer] CPT-99230 Venipuncture Draw Fee 16:52:15 [employer] CPT-88197 Venipuncture Draw Fee 10:37:24 [employer] CPT-75491 Venipuncture Draw Fee 08:21:21 [employer] CPT-39662 Venipuncture Draw Fee 08:30:20 [employer] CPT-39523 Venipuncture Draw Fee 14:53:21 [employer] CPT-41452 Venipuncture Draw Fee 09:40:56 [employer] CPT-73803 Venipuncture Draw Fee 10:30:47 [employer] CPT-60697 Venipuncture Draw Fee 10:46:17 [employer] CPT-80033 Venipuncture Draw Fee 11:12:45 [employer] CPT-34756 Venipuncture Draw Fee 09:53:33 [employer] CPT-18004 Venipuncture Draw Fee 11:53:51 [employer] CPT-52095 Venipuncture Draw Fee 10:33:50 [employer] CPT-92256 Venipuncture Draw Fee 10:05:01 [employer] CPT-83398 Venipuncture Draw Fee 14:32:52 [employer] CPT-20315 Venipuncture Draw Fee 09:46:13 [employer] CPT-25667 Venipuncture Draw Fee 11:34:27 [employer] CPT-40434 Venipuncture Draw Fee 13:17:16 [employer] CPT-55657 Venipuncture Draw Fee 12:05:39 CDT CPT-91340 Venipuncture Draw Fee 12:49:12 CDT CPT-31254 Venipuncture Draw Fee 12:37:18 CDT CPT-58714 Venipuncture Draw Fee 10:57:11 CDT CPT-02840 Venipuncture Draw Fee 13:47:40 CDT CPT-79878 Venipuncture Draw Fee 10:02:17 CDT CPT-15018 TB Tubersol 17:32:32 CDT CPT-OV Office Visit 16:21:53 CDT CPT-OV Office Visit 15:49:22 CDT CPT-OV Office Visit 17:16:31 CDT CPT-OV Office Visit 10:43:31 CDT
--- OUTSIDE RECORDS SUMMARY | 2019-02-09 12:41 | XMS REPORT | Clinical Summary ---
Author Author Florecita Macario Organization [facility] Address Unknown Phone Unavailable Allergies, Adverse Reactions, [...] cohn MD PhD UNSPECIFIED VENOUS INSUFFICIENCY ICD-459.81 [place] ctive Adam Yates MD ADENOCARCINOMA, 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 Inac tive Hope Benavidez MD PhD Hyperkalemia ICD-276.7 Inactive Hope Benavidez MD PhD Health maintenance exam ICD-V70.0 Bam Yates MD Weakness ICD-780.79 Inactive Hope Benavidez MD P hD Aftercare following surgery of the teeth,oral cavity a nd digestive system, NEC ICD-V58.75 Inactive Aadm Yates MD Colon cancer ICD-153.9 Inactive Adam luna MD Asymptomatic postmenopausal status (age-related) (natural) I CD-V49.81 Inactive Hope Benavidez MD PhD Dysuria ICD-788.1 Inactive Hope Benavidez MD PhD 201 05/19/01 Medication List Medication Instructions Start Date Stop Date Generic Name NDC Status Provider Patient Instruction PROPRANOLOL HCL 80 MG TABS 1 tab tue. and thur. 04/10 PROPRANOLOL HCL 11611054257 No Longer Active Hope Benavidez MD PhD A ctive IRON 325 (65 FE) MG TABS 1 every other day FERROUS SULFATE 03320735660 Active Hope Benavidez MD PhD Active VITAMIN D3 4000 IU 1 tab 3 times daily VITAMIN D3 4000 IU No Longer Active Hope Benavidez MD PhD Active CYANOCOBALAMIN 1000 MCG/ML INJ SOLN 1 injection every 2 weeks 01/09 CYANOCOBALAMIN 28874469522 Active Laura Elder Active BACTRIM DS 800-160 MG TABS 1 pill by mouth twice daily, for UTI SULFAMETHOXAZOLE-TRIMETHOPRIM 98526322029 No Longer Active A attila Benavidez MD PhD Active PROLIA 60 MG/ML SOLN 1 shot every 6 months for osteoprosis DENOSUMAB 09467092133 Active Hope Benavidez MD PhD Active CALCIUM + D + K 750-500-40 MG-UNT-MCG TABS 1 tab by mouth tw ice daily CALCIUM-VITAMIN D-VITAMIN K 89803649352 Active Hope landers MD PhD Active DAILY VALUE MULTIVITAMIN TABS 1 tab by mouth twice daily MULTIPLE VITAMIN 78144677500 Active Hope Benavidez MD PhD Active FISH OIL 306 MG CAPS 1 tab by mouth three times daily OMEGA-3 FATTY ACIDS 26757778257 Active Hope Benavidez MD PhD Active LUTEIN 10 MG TABS 1 tab daily LUTEIN 69594577878 Act cash Hope Benavidez MD PhD Active FLORANEX PACK 1 pack three times daily, for bowel health LACTOBACILLUS 37668223380 Active Hope Benavidez MD PhD Active LOMOTIL 2.5-0.025 MG TABS 1 tab by mouth prn DIPHENOXYLATE-ATROPINE 16680241996 Active Hope Benavidez MD PhD Active TRIAMTERENE-HCTZ 37.5-25 MG TABS 1 tab by mouth daily TRIAMTERENE-HCTZ 47492285982 Active Hope Benavidez MD PhD Acti ve MAGNESIUM GLUCONATE 250 MG TABS 1 tab tid MAGN ESIUM GLUCONATE 95515007956 Active Adam Yates MD Active ATENOLOL 50 MG TABS 1/2 tab q other day m-w-f ATE NOLOL 62144904176 Active Hope Benavidez MD PhD Active CYCLOBENZAPRINE HCL 10 MG TABS 1 tablet by mouth three times daily as needed for headaches CYCLOBENZAPRINE HCL 29476906018 No Longe r Active Adam Yates MD Active OMEPRAZOLE 20 MG CPDR 1 tablet by mouth daily for GERD OMEPRAZOLE 74946200710 No Longer Active Adam Yates MD A ctive ZOFRAN 8 MG TABS 1 tab by mouth every 12 hours prn 201 05/16/09 ONDANSETRON HCL 22216855771 No Longer Active Adam Yates MD Active PHENADOZ 25 MG SUPP 1 every 4 hrs. PRN PROMETHA ZINE HCL 71869012066 No Longer Active Adam Yates MD Active POTASSIUM CHLORIDE 20 MEQ PACK by mouth twice a day prn POTASSIUM CHLORIDE 54236009061 No Longer Active Adam Yates MD Active PROMETHAZINE HCL 25 MG TABS 1 Q. 4 hr. PRN PROM ETHAZINE HCL 33000055820 No Longer Active Adam Yates MD Active INNOPRAN XL 120 MG [id number] Take one by mouth daily 2 PROPRANOLOL HCL SR BEADS 28738894202 No Longer Active Adam Yates MD A ctive FLAGYL 500 MG TABS 1 pill by mouth three times daily, for diarrh ea METRONIDAZOLE 68027152492 No Longer Active Hope Benavidez MD PhD Active DYAZIDE 37.5-25 MG CAPS 1 qd TRIAMTERENE-HC TZ 14965310134 No Longer Active Hope Benavidez MD PhD Active PROZAC 20 MG CAPS 1 q d FLUOXETINE HCL 26612 213691 No Longer Active Hope Benavidez MD PhD Active SIMVASTATIN 40 MG TABS 1 qd SIMVASTATIN 004 45902897 No Longer Active Adam Yates MD Active MELOXICAM 15 MG TABS 1 qd MELOXICAM 3119290 2822 No Longer Active Adam Yates MD Active IMODIUM A-D 2 MG TABS 2 onset at diarrhea and prn. LOPERAMIDE HCL 06919218725 Active Hope Benavidez MD PhD Active EXCEDRIN EXTRA STRENGTH 250-250-65 MG TABS 1-2 q6h PRN headache 201 04/16/21 [id number] 00802794824 Active Hope Benavidez MD PhD Active FLAGYL 500 MG TABS 1 qid METRONIDAZOLE 04368 758904 No Longer Active Adam Yates MD Active LEVAQUIN 750 MG TABS 1 qd LEVOFLOXACIN 5486 2765764 No Longer Active Adam Yates MD Active ADULT ASPIRIN LOW STRENGTH 81 MG TBDP 1 qd A SPIRIN 98347961313 Active Hope Benavidez MD PhD Active LEVAQUIN 750 MG TABS 1 qd LEVAQUIN 750 MG T ABS 694635 LEVOFLOXACIN Inactive FLAGYL 500 MG TABS 1 qid FLAGYL 500 MG TABS 124520 METRONIDAZOLE Inactive MELOXICAM 15 MG TABS 1 qd MELOXICAM 15 MG T ABS 822939 MELOXICAM Inactive SIMVASTATIN 40 MG TABS 1 qd SIMVASTATIN 40 MG TABS 835548 SIMVASTATIN Inactive PROZAC 20 MG CAPS 1 q d PROZAC 20 MG CAPS 31 0385 FLUOXETINE HCL Inactive DYAZIDE 37.5-25 MG CAPS 1 qd DYAZIDE 37.5 -25 MG CAPS 924791 TRIAMTERENE-HCTZ Inactive INNOPRAN XL 120 MG [id number] Take one by mouth daily 2 INNOPRAN XL 120 MG [id number] PROPRANOLOL HCL SR BEADS Inactive PROMETHAZINE HCL 25 MG TABS 1 Q. 4 hr. PRN PROMETHAZINE HCL 25 MG TABS 352323 PROMETHAZINE HCL Inactive POTASSIUM CHLORIDE 20 MEQ PACK by mouth twice a day prn POTASSIUM CHLORIDE 20 MEQ PACK 363102 POTASSIUM CHLORIDE Inactive PHENADOZ 25 MG SUPP 1 every 4 hrs. PRN PHENADOZ 2 5 MG SUPP 242613 PROMETHAZINE HCL Inactive ZOFRAN 8 MG TABS 1 tab by mouth every 12 hours prn 201 05/16/09 ZOFRAN 8 MG TABS 087676 ONDANSETRON HCL Inactive OMEPRAZOLE 20 MG CPDR 1 tablet by mouth daily for GERD OMEPRAZOLE 20 MG CPDR 401585 OMEPRAZOLE Inactive CYCLOBENZAPRINE HCL 10 MG TABS 1 tablet by mouth three times daily as needed for headaches CYCLOBENZAPRINE HCL 10 MG TABS 116424 CYCLOBENZAPRINE HCL Inactive VITAMIN D3 4000 IU 1 tab 3 times daily VITAMIN D3 4000 IU Inactive PROPRANOLOL HCL 80 MG TABS 1 tab tue. and thur. 04/10 PROPRANOLOL HCL 80 MG TABS 745854 PROPRANOLOL HCL Inactive FLAGYL 500 MG TABS 1 pill by mouth three times daily, for diarrh ea FLAGYL 500 MG TABS 055748 METRONIDAZOLE Inactive BACTRIM DS 800-160 MG TABS [...] Range Description Chart Maintenance: labs added to [facility] - Chemistry magnesium, serum 2.0 mg/dL Chart Maintenance: Outside labs entered on [employer] - Chemistry sodium, serum 139 mmol/L potassium, serum 3.9 mmol/L blood glucose 85 mg/dL creatinine, serum 1.26 mg/dL aspartate aminotransferase (SGOT), serum 33 U/L alanine aminotransferase (SGPT), serum 44 U/L alkaline phosphatase, serum 127 U/L Chart Maintenance: Outside labs entered on [employer] - Hematology leukocyte count, blood 4.6 10*3/mm3 hemoglobin, blood 13.6 g/dL platelet count 162 10*3/mm3 Lab Report: Basic Metabolic Panel - Chem istry potassium, serum 4.1 mmol/L 3.5-5.2 chloride, serum 99 mmol/L 98-107 carbon dioxide, venous blood 30.7 mmol/L 21.0-32 .0 blood glucose 79 mg/dL 65-110 calcium, serum 8.7 mg/dL 8.5-10.1 sodium, serum 136 mmol/L 448-420 2288/05/02 urea nitrogen, blood 11 mg/dL 7-18 creatinine, serum 1.10 mg/dL 0.60-1.30 Lab Report: BMP - Chemistry sodium, serum 141 mmol/L potassium, serum 4.2 mmol/L blood glucose 66 mg/dL creatinine, serum 1.16 mg/dL Lab Report: [facility] - Chemistry sodium, serum 137 mmol/L potassium, serum 3.8 mmol/L blood glucose 79 mg/dL creatinine, serum 1.02 mg/dL magnesium, serum 1.2 mg/dL Lab Report: [facility] CX - Hematology leukocyte count, blood 8.7 10*3/mm3 hemoglobin, blood 10.8 g/dL platelet count 319 10*3/mm3 Lab Report: CBC W/DIFF, Comp. Metabolic Panel - Chemistry calcium, serum 9.8 mg/dL 8.5-10.1 bilirubin, serum, total 0.40 mg/dL 0.00-1.00 sodium, serum 138 mmol/L 552-857 8307/08/14 potassium, serum 4.0 mmol/L 3.5-5.2 chloride, serum 100 mmol/L 98-107 carbon dioxide, venous blood 28.7 mmol/L 21.0-32 .0 blood glucose 87 mg/dL 65-110 urea nitrogen, blood 25 mg/dL 7-18 creatinine, serum 1.20 mg/dL 0.60-1.30 alanine aminotransferase (SGPT), serum 38 U/L 12-78 aspartate aminotransferase (SGOT), serum 32 U/L 15-37 alkaline phosphatase, serum 198 U/L 50-136 sodium, serum 136 mmol/L 395-514 4734/04/03 potassium, serum 3.7 mmol/L 3.5-5.2 chloride, serum 98 mmol/L 98-107 carbon dioxide, venous blood 29.6 mmol/L 21.0-32 .0 blood glucose 95 mg/dL 65-110 urea nitrogen, blood 22 mg/dL 7-18 creatinine, serum 1.10 mg/dL 0.60-1.30 alanine aminotransferase (SGPT), serum 12 U/L -78 aspartate aminotransferase (SGOT), serum 15 U/L 15-37 alkaline phosphatase, serum 105 U/L 50-136 calcium, serum 8.4 mg/dL 8.5-10.1 bilirubin, serum, total 0.40 mg/dL 0.00-1.00 sodium, serum 145 mmol/L 960-016 2685/02/02 potassium, serum 4.2 mmol/L 3.5-5.2 chloride, serum [...] Metabolic Panel - Hematology erythrocyte (RBC) count 4.54 10^6/MM^3 10*6/mm3 4.04-5.4 8 lymphocytes as percent of blood leukocytes 33.3 % 20.5-51.1 monocytes as percent of blood leukocytes 6.4 % 1.7-9.3 neutrophils as percent of blood leukocytes 55.7 % 42.2-75.2 leukocyte count, blood 5.1 10^3/MM^3 10*3/mm3 4.6-10.2 hemoglobin, blood 15.5 g/dL 12.0-16.0 hematocrit, blood 46.0 % 36.0-46.0 mean corpuscular volume, RBC 101 fL 80-97 mean corpuscular hemoglobin, RBC 34.1 pg 27. 0-31.2 mean corpuscular hemoglobin concentration, RBC 33.7 G/DL % 31.8-35.4 red blood cell distribution width 13.6 % 11 .6-14.8 platelet count 155 10^3/MM^3 10*3/mm3 342-248 0753/04/03 hemoglobin, blood 8.7 g/dL 12.0-16.0 hematocrit, blood 26.1 % 36.0-46.0 mean corpuscular volume, RBC 106 fL 80-97 mean corpuscular hemoglobin, RBC 35.4 pg 27. 0-31.2 mean corpuscular hemoglobin concentration, RBC 33.3 G/DL % 31.8-35.4 red blood cell distribution width 15.4 % 11 .6-14.8 platelet count 246 10^3/MM^3 10*3/mm3 945-839 1460/08/14 leukocyte count, blood 5.8 10^3/MM^3 10*3/mm3 4.6-10.2 [...] 11 .6-14.8 platelet count 193 10^3/MM^3 10*3/mm3 014-289 3175/04/03 erythrocyte (RBC) count 2.46 10^6/MM^3 10*6/mm3 4.04-5.4 8 lymphocytes as percent of blood leukocytes 21.8 % 20.5-51.1 monocytes as percent of blood leukocytes 9.5 % 1.7-9.3 neutrophils as percent of blood leukocytes 66.6 % 42.2-75.2 leukocyte count, blood 5.6 10^3/MM^3 10*3/mm3 4.6-10.2 Lab Report: CEA - Serology carcinoembryonic antigen 0.9 ng/mL carcinoembryonic antigen 0.7 ng/mL carcinoembryonic antigen 1.3 ng/mL Lab Report: cmp - Chemistry sodium, serum 142 mmol/L potassium, serum 4.0 mmol/L blood glucose 115 mg/dL creatinine, serum 1.24 mg/dL Lab Report: Hemoglobin - Hematology hemoglobin, blood 11.2 g/dL 12.0-16.0 Lab Report: Lipid Panel - Chemistry cholesterol, serum 209 mg/dL 952-824 7507/09/11 triglyceride, serum, fasting 113 mg/dL 30-200 HDL cholesterol, serum 50 mg/dL 32-96 LDL cholesterol, serum 136 mg/dL 0-130 Lab Report: UADIP W/MICRO, AUTO - Chemis try RBC, urine, dipstick Trace Negative protein, total urine random Trace mg/dL Negative Lab Report: UADIP W/MICRO, AUTO - Urinal ysis glucose, urine, semiquantitative Negative Neg ative ketones, urine, by test strip Negative Negati ve bilirubin, urine Negative Negative urine color Yellow Colorless;Lightyellow;St raw;Yellow appearance, urine SlCloudy Clear specific gravity, urine 1.020 1.000-1.030 pH, urine, semiquantitative 7.0 5.0-8.5 urobilinogen, urine, semiquantitative (dipstick) 0.2 Normal leukocyte esterase, urine, by dipstick 1+ Negative nitrite, urine, semiquantitative Negative Neg ative Lab Report: VITAMIN D, 25-HYDROXY/71485, MAGNESIUM/622 - Chemistry vitamin D 25-hydroxy, serum 41 ng/mL 30-100 Encounters Code Encounter Date Provider Facility CPT-86649 Level 4 Est. Patient 12:08:30 LOGISTICS LEAD Hope cohn MD PhD [facility] CPT-60568 Level 4 Est. Patient 19:08:42 LOGISTICS LEAD Hope cohn MD PhD [facility] CPT-45278 Level 4 Est. Patient 20:04:51 CDT Hope cohn MD PhD [facility] CPT-32620 Level 3 New Patient 01:46:11 LOGISTICS LEAD Hope landers MD PhD [facility] Procedures Code Procedure Name Date Entry Date Standard Desc ription CPT-J3420 Vitamin B12 1000mcg (Cyanocobalamin) 09:26:20 LOGISTICS LEAD CPT-48358 Abx/Therapy Injection 09:26:20 LOGISTICS LEAD CPT-J3420 Vitamin B12 1000mcg (Cyanocobalamin) 09:44:40 LOGISTICS LEAD CPT-42894 Abx/Therapy Injection 09:44:40 LOGISTICS LEAD CPT-J3420 Vitamin B12 1000mcg (Cyanocobalamin) 09:15:54 LOGISTICS LEAD CPT-55110 Abx/Therapy Injection 09:15:54 LOGISTICS LEAD CPT-J3420 Vitamin B12 1000mcg (Cyanocobalamin) 09:46:44 LOGISTICS LEAD CPT-53025 Abx/Therapy Injection 09:46:44 LOGISTICS LEAD CPT-J3420 Vitamin B12 1000mcg (Cyanocobalamin) 09:47:34 LOGISTICS LEAD CPT-73911 Abx/Therapy Injection 09:47:34 LOGISTICS LEAD CPT-J3420 Vitamin B12 1000mcg (Cyanocobalamin) 14:35:50 LOGISTICS LEAD CPT-J3420 Vitamin B12 1000mcg (Cyanocobalamin) 09:25:05 LOGISTICS LEAD CPT-38074 Abx/Therapy Injection 09:25:05 LOGISTICS LEAD CPT-G0008 Administration of Influenza Virus Vaccine 13:36:47 CDT CPT-20940 Fluzone High-Dose Intramuscular Suspension 11/15 13:36:47 CDT CPT-J0897 Prolia 60 mg 08:50:41 CDT CPT-08960 Abx/Therapy Injection 08:50:41 CDT CPT-50708 Bone Density 12:06:12 CDT CPT-70550 Bone Density 08:54:40 CDT CPT-OV Office Visit 15:37:02 CDT CPT-99942 Postop F/U Visit 15:47:49 CDT CPT-84399 Postop F/U Visit 15:21:02 CDT CPT-TCMH Transitional Care Mgmt-High 07:52:27 CDT 20 20/06/01 CPT-10936 Venipuncture Draw Fee 13:51:18 CDT CPT-44634 Venipuncture Draw Fee 10:14:55 LOGISTICS LEAD CPT-07433 Venipuncture Draw Fee 13:39:45 LOGISTICS LEAD CPT-OV Office Visit 15:11:22 LOGISTICS LEAD CPT-63121 Venipuncture Draw Fee 09:20:49 LOGISTICS LEAD CPT-78208 Venipuncture Draw Fee 16:52:15 LOGISTICS LEAD CPT-62532 Venipuncture Draw Fee 10:37:24 LOGISTICS LEAD CPT-66378 Venipuncture Draw Fee 08:21:21 LOGISTICS LEAD CPT-33204 Venipuncture Draw Fee 08:30:20 LOGISTICS LEAD CPT-06092 Venipuncture Draw Fee 14:53:21 LOGISTICS LEAD CPT-91304 Venipuncture Draw Fee 09:40:56 LOGISTICS LEAD CPT-18730 Venipuncture Draw Fee 10:30:47 LOGISTICS LEAD CPT-58227 Venipuncture Draw Fee 10:46:17 LOGISTICS LEAD CPT-19515 Venipuncture Draw Fee 11:12:45 LOGISTICS LEAD CPT-30491 Venipuncture Draw Fee 09:53:33 LOGISTICS LEAD CPT-79649 Venipuncture Draw Fee 11:53:51 LOGISTICS LEAD CPT-66028 Venipuncture Draw Fee 10:33:50 LOGISTICS LEAD CPT-15653 Venipuncture Draw Fee 10:05:01 LOGISTICS LEAD CPT-22561 Venipuncture Draw Fee 14:32:52 LOGISTICS LEAD CPT-50202 Venipuncture Draw Fee 09:46:13 LOGISTICS LEAD CPT-62685 Venipuncture Draw Fee 11:34:27 LOGISTICS LEAD CPT-86931 Venipuncture Draw Fee 13:17:16 LOGISTICS LEAD CPT-47282 Venipuncture Draw Fee 12:05:39 CDT CPT-88044 Venipuncture Draw Fee 12:49:12 CDT CPT-55913 Venipuncture Draw Fee 12:37:18 CDT CPT-93665 Venipuncture Draw Fee 10:57:11 CDT CPT-36847 Venipuncture Draw Fee 13:47:40 CDT CPT-76349 Venipuncture Draw Fee 10:02:17 CDT CPT-98827 TB Tubersol 17:32:32 CDT CPT-OV Office Visit 16:21:53 CDT CPT-OV Office Visit 15:49:22 CDT CPT-OV Office Visit 17:16:31 CDT CPT-OV Office Visit 10:43:31 CDT
--- OUTSIDE RECORDS SUMMARY | 2019-02-09 12:41 | XMS REPORT | Clinical Summary ---
Author Author Renaldo, Florecita Munoz Organization [facility] Address Unknown Phone Unavailable Allergies, Adverse Reactions, [...] Hyperpotassemia GERD 530.81 Resolved Kylie Yokum ACCOUNTS PAYABLE ANALYST Esophageal reflux Health maintenance exam V70.0 Resolved Adolfo Yates MD Routine general medical examination at a health care facility Anemia 285.9 Resolved Kylie Yanet ACCOUNTS PAYABLE ANALYST Anemia, unspecified Personal history of malignant neoplasm of large intestine V10.05 Active Adam Yates MD Personal history of malignant neoplasm of large intestine Hypomagnesemia 275.2 Resolved Kylie Yanet ACCOUNTS PAYABLE ANALYST Disorders of magnesium metabolism Weakness 780.79 [...] cyst, scalp 706.2 Resolved Kylie Yokum ACCOUNTS PAYABLE ANALYST Sebaceous cyst Cervical lymphadenopathy, anterior, left 785.6 Resolv ed Kylie Yokum ACCOUNTS PAYABLE ANALYST Enlargement of lymph nodes Need for prophylactic vaccination and inoculation against in fluenza V04.81 Resolved Adam Yates MD Need for prophylactic vaccination and inoculation against influenza Preventive health care V70.0 Active Kylie Yokum ACCOUNTS PAYABLE ANALYST Routine general medical examination at a health care facility Thyroid nodule, left 241.0 Active Kylie Yokum A PRN Nontoxic uninodular goiter Screening mammogram V76.12 Active Kylie Yokum AP RN Other screening mammogram Mnady 706.2 Resolved Kylie Yokum ACCOUNTS PAYABLE ANALYST Sebaceous cyst Colon cancer, ascending 153.6 Resolved Kylie Yok um ACCOUNTS PAYABLE ANALYST Malignant neoplasm of ascending colon Foot pain, left 729.5 Active Sulema Naff LOOM FIXER Pain in limb Splinter 919.6 Active Kylie Yokum ACCOUNTS PAYABLE ANALYST Superficial foreign body (splinter) of other, multiple, and unspecified sites, without major open wound and without mention of infection Rash 782.1 Active Kylie Yokum ACCOUNTS PAYABLE ANALYST R aurora and other nonspecific skin eruption ABDOMINAL PAIN, RIGHT LOWER QUADRANT ICD-789.03 Inactive Kina Joshua ACCOUNTS PAYABLE ANALYST ADENOCARCINOMA, COLON, 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 Dick Yates MD ABDOMINAL PAIN, GENERALIZED ICD-789.07 Inactive Hope Benavidez MD PhD FEVER UNSPECIFIED ICD-780.60 Inactive Hope cohn MD PhD UNSPECIFIED VENOUS INSUFFICIENCY ICD-459.81 Vonore ctive Adam Yates MD ADENOCARCINOMA, 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 Inac tive Hope Benavidez MD PhD Hyperkalemia ICD-276.7 Inactive Hope Benavidez MD PhD GERD ICD-530.81 Inactive Kylie Yanet ACCOUNTS PAYABLE ANALYST 2015 Health maintenance exam ICD-V70.0 Bam Yates MD Anemia ICD-285.9 Inactive Kylie Holt ACCOUNTS PAYABLE ANALYST 07/24 Hypomagnesemia ICD-275.2 Inactive Kylie Yokum ACCOUNTS PAYABLE ANALYST Weakness ICD-780.79 Inactive Hope Benavidez MD [...] Sebaceous cyst, scalp ICD-706.2 Inactive Tracy Holt ACCOUNTS PAYABLE ANALYST Cervical lymphadenopathy, anterior, left ICD-785.6 Inactive Kylie Holt ACCOUNTS PAYABLE ANALYST Need for prophylactic vaccination and inoculation against in fluenza ICD-V04.81 Inactive Adam Yates MD Mandy ICD-706.2 Inactive Kylie Holt AMY 07/20 Colon cancer, ascending ICD-153.6 Inactive Gabbi Escalonagabbioliver AMY Medication List Medication Instructions Start Date Stop Date Generic Name NDC Status Provider Patient Instruction VOLTAREN 1 % TRANSDERMAL GEL apply q 6-8 hour to left arm as needed for pain DICLOFENAC SODIUM 34594904963 Active Kylie Holt AMY Active COQ10 100 MG ORAL CAPSULE 1 daily COENZYME Q10 417590 73510 Active LETY Nation Active VITAMIN D3 2000 UNIT ORAL CAPSULE Melaleuca-One daily CHOLECALCIFEROL 40522938195 Active Kylie Holt APRN Active PROBIOTIC DAILY ORAL CAPSULE Take one daily PROBIO TIC PRODUCT 21855218202 Active Kylie Holt AMY Active IRON 325 (65 Fe) MG ORAL TABLET 1 every other day FERROUS SULFATE 96249252181 No Longer Active Kylie Holt AMY Active FLORANEX ORAL PACKET 1 pack three times daily, for bowel health LACTOBACILLUS 72419406306 No Longer Active Kylie Holt AMY Active LOMOTIL 2.5-0.025 MG ORAL TABLET 1 tab by mouth prn 23/10/23 DIPHENOXYLATE-ATROPINE 39432612688 No Longer Active Kylie Holt ACCOUNTS PAYABLE ANALYST Active MAGNESIUM GLUCONATE 250 MG ORAL TABLET 1 tab tid 23/10/23 MAGNESIUM GLUCONATE 82967994774 No Longer Active Kylie Holt ACCOUNTS PAYABLE ANALYST Active CYANOCOBALAMIN 1000 MCG/ML INJECTION SOLUTION 1 injection ev ruben 2 weeks CYANOCOBALAMIN 39452760317 No Longer Active Kylie boyd ACCOUNTS PAYABLE ANALYST Active ATENOLOL 25 MG ORAL TABLET 1/2 pill by mouth daily, fo r headaches, blood pressure ATENOLOL 05252929648 Active Kylie Holt ACCOUNTS PAYABLE ANALYST Active PROPRANOLOL HCL 80 MG ORAL TABLET 1 tab tue. and thur. PROPRANOLOL HCL 88172193837 No Longer Active Hope Benavidez MD PhD A ctive VITAMIN D3 4000 IU 1 tab 3 times daily VITAMIN D3 4000 IU No Longer Active Hope Benavidez MD PhD Active BACTRIM DS 800-160 MG ORAL TABLET 1 pill by mouth twice claudio y, for UTI SULFAMETHOXAZOLE-TRIMETHOPRIM 45442661103 No Longer Active Hope Benavidez MD PhD Active PROLIA 60 MG/ML SUBCUTANEOUS SOLUTION 1 shot every 6 months for osteoprosis DENOSUMAB 06271411492 Active Hope Benavidez MD PhD Active CALCIUM + D + K 750-500-40 MG-UNT-MCG ORAL TABLET 1 tab by m harvinder twice daily CALCIUM-VITAMIN D-VITAMIN K 41903101493 Active Hope valdez MD PhD Active DAILY VALUE MULTIVITAMIN ORAL TABLET 1 tab by mouth twice daily 201 05/16/14 MULTIPLE VITAMIN 92789088837 Active Hope Benavidez MD PhD Acti ve FISH OIL 306 MG CAPS 1 tab by mouth three times daily OMEGA-3 FATTY ACIDS 60503915515 Active Hope Benavidez MD PhD Active LUTEIN 10 MG ORAL TABLET 1 tab daily LUTEIN 77273876 408 Active Hope Benavidez MD PhD Active TRIAMTERENE-HCTZ 37.5-25 MG ORAL TABLET 1 tab by mouth daily 10/22 TRIAMTERENE-HCTZ 63410544575 Active LETY Rossi CYCLOBENZAPRINE HCL 10 MG ORAL TABLET 1 tablet by mout h three times daily as needed for headaches CYCLOBENZAPRINE HCL 51389260581 No Longer Active Adam Yates MD Active OMEPRAZOLE 20 MG ORAL CAPSULE DELAYED RELEASE [address] [facility] daily for GERD OMEPRAZOLE 66470678283 No Longer Active Adam Yatse MD Active ZOFRAN 8 MG ORAL TABLET 1 tab by mouth every 12 hours prn 4 ONDANSETRON HCL 08703267238 No Longer Active Adam Yates MD Active PHENADOZ 25 MG RECTAL SUPPOSITORY 1 every 4 hrs. PRN 2 PROMETHAZINE HCL 84560000674 No Longer Active Adam Yates MD A ctive POTASSIUM CHLORIDE 20 MEQ ORAL PACKET by mouth twice a day prn 2 POTASSIUM CHLORIDE 59483766420 No Longer Active Adam Carpenter MD Active PROMETHAZINE HCL 25 MG ORAL TABLET 1 Q. 4 hr. PRN PROMETHAZINE HCL 00564506778 No Longer Active Adam Yates MD Active INNOPRAN XL 120 MG ORAL CAPSULE EXTENDED RELEASE 24 HO UR Take one by mouth daily PROPRANOLOL HCL SR BEADS 77460629152 No Longer Active Adam Yates MD Active FLAGYL 500 MG ORAL TABLET 1 pill by mouth three times daily, for diarrhea METRONIDAZOLE 90880966404 No Longer Active Hope landers MD PhD Active DYAZIDE 37.5-25 MG ORAL CAPSULE 1 qd TRIA MTERENE-HCTZ 20092299164 No Longer Active Hope Benavidez MD PhD Active PROZAC 20 MG ORAL CAPSULE 1 q d FLUOXETINE HCL 84092274195 No Longer Active Hope Benavidez MD PhD Active SIMVASTATIN 40 MG ORAL TABLET 1 qd SIMVAS TATIN 12891139134 No Longer Active Adam Yates MD Active MELOXICAM 15 MG ORAL TABLET 1 qd MELOXICAM 38311941016 No Longer Active Adam Yates MD Active IMODIUM A-D 2 MG ORAL TABLET 2 onset at diarrhea and prn. LOPERAMIDE HCL 79363790071 Active Hope Benavidez MD PhD Active EXCEDRIN EXTRA STRENGTH 250-250-65 MG ORAL TABLET 1-2 q6h VT N headache FFFSAIF-MIXYHGSUUTMRO-[id number] 90013264479 Active Hope Benavidez MD PhD Active FLAGYL 500 MG ORAL TABLET 1 qid METRONIDAZOL E 26537800233 No Longer Active Adam Yates MD Active LEVAQUIN 750 MG ORAL TABLET 1 qd LEVOFLOXAC IN 78731483158 No Longer Active Adam Yates MD Active ADULT ASPIRIN LOW STRENGTH 81 MG ORAL TABLET DISINTEGRATING 1 qd ASPIRIN 15029857748 Active Hope Benavidez MD PhD Active LEVAQUIN 750 MG ORAL TABLET 1 qd LEVAQUIN 750 MG ORAL TABLET 895580 LEVOFLOXACIN Inactive FLAGYL 500 MG ORAL TABLET 1 qid FLAGYL 500 MG ORAL TABLET 602423 METRONIDAZOLE Inactive MELOXICAM 15 MG ORAL TABLET 1 qd MELOXICAM 15 MG ORAL TABLET 656378 MELOXICAM Inactive SIMVASTATIN 40 MG ORAL TABLET 1 qd SIMVASTATIN 40 MG ORAL TABLET 073006 SIMVASTATIN Inactive PROZAC 20 MG ORAL CAPSULE 1 q d PROZAC 20 MG ORAL CAPSULE 073057 FLUOXETINE HCL Inactive DYAZIDE 37.5-25 MG ORAL CAPSULE 1 qd 5 DYAZIDE 37.5-25 MG ORAL CAPSULE 525244 TRIAMTERENE-HCTZ Inactive INNOPRAN XL 120 MG ORAL CAPSULE EXTENDED RELEASE 24 HO UR Take one by mouth daily INNOPRAN XL 120 MG ORAL CAPSULE EXTENDED RELEASE 24 HOUR PROPRANOLOL HCL SR BEADS Inactive PROMETHAZINE HCL 25 MG ORAL TABLET 1 Q. 4 hr. PRN 2013 PROMETHAZINE HCL 25 MG ORAL TABLET 774412 PROMETHAZINE HCL Inactive POTASSIUM CHLORIDE 20 MEQ ORAL PACKET by mouth twice a day prn 2 POTASSIUM CHLORIDE 20 MEQ ORAL PACKET 6006171 POTASSIUM CHLORIDE Inactive PHENADOZ 25 MG RECTAL SUPPOSITORY 1 every 4 hrs. PRN 2 PHENADOZ 25 MG RECTAL SUPPOSITORY 598127 PROMETHAZINE HCL Inactive ZOFRAN 8 MG ORAL TABLET 1 tab by mouth every 12 hours prn 4 ZOFRAN 8 MG ORAL TABLET 838859 ONDANSETRON HCL Inactive OMEPRAZOLE 20 MG ORAL CAPSULE DELAYED RELEASE 1 tablet by mo uth daily for GERD OMEPRAZOLE 20 MG ORAL CAPSULE DELAYED RELEASE 19 8051 OMEPRAZOLE Inactive CYCLOBENZAPRINE HCL 10 MG ORAL TABLET 1 tablet by mout h three times daily as needed for headaches CYCLOBENZAPRINE HCL 10 MG ORAL TABLET 321848 CYCLOBENZAPRINE HCL Inactive VITAMIN D3 4000 IU 1 tab 3 times daily VITAMIN D3 4000 IU Inactive PROPRANOLOL HCL 80 MG ORAL TABLET 1 tab tue. and thur. PROPRANOLOL HCL 80 MG ORAL TABLET 482002 PROPRANOLOL HCL Inacti ve CYANOCOBALAMIN 1000 MCG/ML INJECTION SOLUTION 1 injection ev ruben 2 weeks CYANOCOBALAMIN 1000 MCG/ML INJECTION SOLUTION 30 9594 CYANOCOBALAMIN Inactive MAGNESIUM GLUCONATE 250 MG ORAL TABLET 1 tab tid 20 23/10/23 MAGNESIUM GLUCONATE 250 MG ORAL TABLET 543234 MAGNESIUM GLUCONATE Inactive LOMOTIL 2.5-0.025 MG ORAL TABLET 1 tab by mouth prn 20 23/10/23 LOMOTIL 2.5-0.025 MG ORAL TABLET 5990379 DIPHENOXYLATE-ATROPINE Inac tive FLORANEX ORAL PACKET 1 pack three times daily, for bowel health FLORANEX ORAL PACKET LACTOBACILLUS Inactive IRON 325 (65 Fe) MG ORAL TABLET 1 every other day 2015 IRON 325 (65 Fe) MG ORAL TABLET 672493 FERROUS SULFATE Inactive FLAGYL 500 MG ORAL TABLET 1 pill by mouth three times daily, for diarrhea FLAGYL 500 MG ORAL TABLET 030990 METRONIDAZOLE I nactive BACTRIM DS 800-160 MG ORAL TABLET 1 pill by mouth twice claudio y, for UTI BACTRIM DS 800-160 MG ORAL TABLET 869044 SULFAMETHOXAZOLE-TRIMETHOPRIM Inactive Advance Directives Directive Description Start [...] ... - Chemistry sodium, serum 138 mmol/L 153-915 7226/12/15 potassium, serum 4.0 mmol/L 3.5-5.2 chloride, serum [...] 11 .0-15.0 platelet count 157 THOUSAND/UL 10*3/mm3 617-322 4246/04/20 mean platelet volume 8.9 fL 7.5-12.5 Lab Report: CEA - Serology carcinoembryonic antigen 0.9 ng/mL Encounters Code Encounter Date Provider Facility CPT-24579 Level 2 Est. Patient 14:27:16 MANUSCRIPT EDITOR Kylie boyd [facility] CPT-44166 Level 3 Est. Patient 17:54:48 CDT Kylie boyd [facility] CPT-27959 Level 3 Est. Patient 16:26:30 CDT Kina blackmon [facility] CPT-66390 Level 3 New Patient 16:22:01 MANUSCRIPT EDITOR Adam Yates MD [facility] CPT-15091 Level 4 Est. Patient 17:00:48 CDT Kylie boyd [facility] CPT-12120 Level 3 Est. Patient 13:15:54 CDT Kylie boyd [facility] CPT-60118 Level 3 Est. Patient 09:10:11 CDT Kylie Lund [facility] named [facility] CPT-23908 Level 4 Est. Patient 12:08:30 MANUSCRIPT EDITOR Hope cohn MD [facility] CPT-92194 Level 4 Est. Patient 19:08:42 MANUSCRIPT EDITOR Hope cohn MD PhD [facility] CPT-68697 Level 4 Est. Patient 20:04:51 CDT Hope cohn MD PhD [facility] CPT-27959 Level 3 New Patient 01:46:11 MANUSCRIPT EDITOR Hope landers MD PhD [facility] Procedures Code Procedure Name Date Entry Date Standard Desc ription CPT-J0897 Prolia 60 mg 15:46:54 MANUSCRIPT EDITOR CPT-28582 Abx/Therapy Injection 15:46:54 MANUSCRIPT EDITOR CPT-19752 Microalbumin - LAB USE ONLY 09:41:32 MANUSCRIPT EDITOR 20 23/01/15 CPT-51471 Free T4 - LAB USE ONLY 09:41:32 MANUSCRIPT EDITOR CPT-79382 TSH - LAB USE ONLY 09:41:32 MANUSCRIPT EDITOR CPT-49371 BMP - LAB USE ONLY 09:41:32 MANUSCRIPT EDITOR CPT-89130 Venipuncture Draw Fee 09:41:32 MANUSCRIPT EDITOR CPT-65027 First Vx - Ix admin for Medicare patients 11:19:30 CDT CPT-74876 Fluzone High-Dose Intramuscular Suspension 12/07 11:19:30 CDT CPT-J0897 Prolia 60 mg 14:55:42 CDT CPT-55690 Abx/Therapy Injection 14:55:42 CDT CPT-20351 Bone Density - XRAY USE ONLY 10:27:12 CDT 2 CPT-G0439 Subsequent Annual Wellness Exam 17:54:53 CDT CPT-00178 Foot, left, comp min 3V - XRAY USE ONLY 12:22:49 CDT CPT-G0009 Administration of Pneumococcal Vaccine 3 12:18:00 CDT CPT-52215 Pneumovax 23 Injection Injectable 25 MCG /0.5ML 12:18:00 CDT CPT-J0897 Prolia 60 mg 14:14:16 MANUSCRIPT EDITOR CPT-76139 Abx/Therapy Injection 14:14:15 MANUSCRIPT EDITOR CPT-87047 Lipid - LAB USE ONLY 10:01:52 MANUSCRIPT EDITOR 2 CPT-69160 Calcium - LAB USE ONLY 10:01:51 MANUSCRIPT EDITOR CPT-90019 Venipuncture Draw Fee 10:01:51 MANUSCRIPT EDITOR CPT-LR Lesion Removal 16:22:01 MANUSCRIPT EDITOR CPT-82161 TSH - LAB USE ONLY 14:26:02 CDT CPT-86792 CMP - LAB USE ONLY 14:26:01 CDT CPT-98815 CBC with Diff - LAB USE ONLY 14:26:01 CDT 2 CPT-15267 Venipuncture Draw Fee 14:26:01 CDT CPT-43271 First Vx - Ix admin for Medicare patients 13:27:08 CDT CPT-70208 Fluzone High-Dose Intramuscular Suspension 11/26 13:27:08 CDT CPT-G0438 Initial Annual Wellness Exam 14:19:57 CD T CPT-G0009 Administration of Pneumococcal Vaccine 9 11:36:25 CDT CPT-89621 Prevnar 13 Intramuscular Suspension 1 1:36:25 CDT CPT-43091 Prevnar 13 Intramuscular Suspension 1 0:40:58 CDT CPT-J0897 Prolia 60 mg 10:37:16 CDT CPT-67692 Abx/Therapy Injection 10:37:16 CDT CPT-J0897 Prolia 60 mg 16:09:34 MANUSCRIPT EDITOR CPT-J0897 Prolia 60 mg 11:10:35 MANUSCRIPT EDITOR CPT-40941 Abx/Therapy Injection 11:10:35 MANUSCRIPT EDITOR CPT-000 Give Appropriate Flu Vaccine 17:01:15 MANUSCRIPT EDITOR 2 CPT-64956 Fluzone High Dose (65+) 15:03:08 MANUSCRIPT EDITOR 02/15 CPT-28409 Immunization Single Admin 15:03:08 MANUSCRIPT EDITOR 2014 CPT-OV Office Visit 15:58:06 CDT CPT-J0897 Prolia 60 mg 08:45:38 CDT CPT-12988 Abx/Therapy Injection 08:45:38 CDT CPT-J3420 Vitamin B12 1000mcg (Cyanocobalamin) 09:26:20 MANUSCRIPT EDITOR CPT-08196 Abx/Therapy Injection 09:26:20 MANUSCRIPT EDITOR CPT-J3420 Vitamin B12 1000mcg (Cyanocobalamin) 09:44:40 MANUSCRIPT EDITOR CPT-91989 Abx/Therapy Injection 09:44:40 MANUSCRIPT EDITOR CPT-J3420 Vitamin B12 1000mcg (Cyanocobalamin) 09:15:54 MANUSCRIPT EDITOR CPT-12893 Abx/Therapy Injection 09:15:54 MANUSCRIPT EDITOR CPT-J3420 Vitamin B12 1000mcg (Cyanocobalamin) 09:46:44 MANUSCRIPT EDITOR CPT-33224 Abx/Therapy Injection 09:46:44 MANUSCRIPT EDITOR CPT-J3420 Vitamin B12 1000mcg (Cyanocobalamin) 09:47:34 MANUSCRIPT EDITOR CPT-28912 Abx/Therapy Injection 09:47:34 MANUSCRIPT EDITOR CPT-J3420 Vitamin B12 1000mcg (Cyanocobalamin) 14:35:50 MANUSCRIPT EDITOR CPT-J3420 Vitamin B12 1000mcg (Cyanocobalamin) 09:25:05 MANUSCRIPT EDITOR CPT-86737 Abx/Therapy Injection 09:25:05 MANUSCRIPT EDITOR CPT-G0008 Administration of Influenza Virus Vaccine 13:36:47 CDT CPT-83809 Fluzone High-Dose Intramuscular Suspension 11/15 13:36:47 CDT CPT-J0897 Prolia 60 mg 08:50:41 CDT CPT-09175 Abx/Therapy Injection 08:50:41 CDT CPT-48775 Bone Density 12:06:12 CDT CPT-02770 Bone Density 08:54:40 CDT CPT-OV Office Visit 15:37:02 CDT CPT-68756 Postop F/U Visit 15:47:49 CDT CPT-32967 Postop F/U Visit 15:21:02 CDT CPT-[facility] Transitional Care Mgmt-High 07:52:27 CDT 20 20/06/01 CPT-09982 Venipuncture Draw Fee 13:51:18 CDT CPT-04292 Venipuncture Draw Fee 10:14:55 MANUSCRIPT EDITOR CPT-55043 Venipuncture Draw Fee 13:39:45 MANUSCRIPT EDITOR CPT-OV Office Visit 15:11:22 MANUSCRIPT EDITOR CPT-22318 Venipuncture Draw Fee 09:20:49 MANUSCRIPT EDITOR CPT-17265 Venipuncture Draw Fee 16:52:15 MANUSCRIPT EDITOR CPT-43449 Venipuncture Draw Fee 10:37:24 MANUSCRIPT EDITOR CPT-61447 Venipuncture Draw Fee 08:21:21 MANUSCRIPT EDITOR CPT-75492 Venipuncture Draw Fee 08:30:20 MANUSCRIPT EDITOR CPT-28593 Venipuncture Draw Fee 14:53:21 MANUSCRIPT EDITOR CPT-93426 Venipuncture Draw Fee 09:40:56 MANUSCRIPT EDITOR CPT-69285 Venipuncture Draw Fee 10:30:47 MANUSCRIPT EDITOR CPT-76226 Venipuncture Draw Fee 10:46:17 MANUSCRIPT EDITOR CPT-56700 Venipuncture Draw Fee 11:12:45 MANUSCRIPT EDITOR CPT-73585 Venipuncture Draw Fee 09:53:33 MANUSCRIPT EDITOR CPT-24788 Venipuncture Draw Fee 11:53:51 MANUSCRIPT EDITOR CPT-67264 Venipuncture Draw Fee 10:33:50 MANUSCRIPT EDITOR CPT-54809 Venipuncture Draw Fee 10:05:01 MANUSCRIPT EDITOR CPT-34415 Venipuncture Draw Fee 14:32:52 MANUSCRIPT EDITOR CPT-20587 Venipuncture Draw Fee 09:46:13 MANUSCRIPT EDITOR CPT-43157 Venipuncture Draw Fee 11:34:27 MANUSCRIPT EDITOR CPT-54237 Venipuncture Draw Fee 13:17:16 MANUSCRIPT EDITOR CPT-73252 Venipuncture Draw Fee 12:05:39 CDT CPT-79489 Venipuncture Draw Fee 12:49:12 CDT CPT-13933 Venipuncture Draw Fee 12:37:18 CDT CPT-76970 Venipuncture Draw Fee 10:57:11 CDT CPT-68429 Venipuncture Draw Fee 13:47:40 CDT CPT-82958 Venipuncture Draw Fee 10:02:17 CDT CPT-14779 TB Tubersol 17:32:32 CDT CPT-OV Office Visit 16:21:53 CDT CPT-OV Office Visit 15:49:22 CDT CPT-OV Office Visit 17:16:31 CDT CPT-OV Office Visit 10:43:31 CDT
--- OUTSIDE RECORDS SUMMARY | 2019-02-09 12:41 | XMS REPORT | Clinical Summary ---
Author Author Florecita Macario Organization [facility] Address Unknown Phone Unavailable Allergies, Adverse Reactions, [...] cohn MD PhD UNSPECIFIED VENOUS INSUFFICIENCY ICD-459.81 [place] ctive Adam Yates MD ADENOCARCINOMA, ASCENDING COLON [...] daily, for headac hes, blood pressure ATENOLOL 26070904009 Active Hope Benavidez MD PhD Active PROPRANOLOL HCL 80 MG TABS 1 tab tue. and thur. 04/10 PROPRANOLOL HCL 91308341264 No Longer Active Hope Benavidez MD PhD A ctive IRON 325 (65 FE) MG TABS 1 every other day FERROUS SULFATE 63328409530 Active Hope Benavidez MD PhD Active VITAMIN D3 4000 IU 1 tab 3 times daily VITAMIN D3 4000 IU No Longer Active Hope Benavidez MD PhD Active CYANOCOBALAMIN 1000 MCG/ML INJ SOLN 1 injection every 2 weeks 01/09 CYANOCOBALAMIN 05927243820 Active Laura Elder Active BACTRIM DS 800-160 MG TABS 1 pill by mouth twice daily, for UTI SULFAMETHOXAZOLE-TRIMETHOPRIM 79037938186 No Longer Active Lisa attila Benavidez MD PhD Active PROLIA 60 MG/ML SOLN 1 shot every 6 months for osteoprosis DENOSUMAB 80946282506 Active Hope Benavidez MD PhD Active CALCIUM + D + K 750-500-40 MG-UNT-MCG TABS 1 tab by mouth tw ice daily CALCIUM-VITAMIN D-VITAMIN K 21322524349 Active Hope landers MD PhD Active DAILY VALUE MULTIVITAMIN TABS 1 tab by mouth twice daily MULTIPLE VITAMIN 47320309456 Active Hope Benavidez MD PhD Active FISH OIL 306 MG CAPS 1 tab by mouth three times daily OMEGA-3 FATTY ACIDS 18303356050 Active Hope Benavidez MD PhD Active LUTEIN 10 MG TABS 1 tab daily LUTEIN 04959525805 Act cash Hope Benavidez MD PhD Active FLORANEX PACK 1 pack three times daily, for bowel health LACTOBACILLUS 52374896595 Active Hope Benavidez MD PhD Active LOMOTIL 2.5-0.025 MG TABS 1 tab by mouth prn DIPHENOXYLATE-ATROPINE 75649095461 Active Hope Benavidez MD PhD Active TRIAMTERENE-HCTZ 37.5-25 MG TABS 1 tab by mouth daily TRIAMTERENE-HCTZ 93117549259 Active Hope Benavidez MD PhD Acti ve MAGNESIUM GLUCONATE 250 MG TABS 1 tab tid MAGN ESIUM GLUCONATE 66544137064 Active Adam Yates MD Active CYCLOBENZAPRINE HCL 10 MG TABS 1 tablet by mouth three times daily as needed for headaches CYCLOBENZAPRINE HCL 32421009638 No Longe r Active Adam Yates MD Active OMEPRAZOLE 20 MG CPDR 1 tablet by mouth daily for GERD OMEPRAZOLE 46913739097 No Longer Active Adam Yates MD A ctive ZOFRAN 8 MG TABS 1 tab by mouth every 12 hours prn 201 05/16/09 ONDANSETRON HCL 31089240859 No Longer Active Adam Yates MD Active PHENADOZ 25 MG SUPP 1 every 4 hrs. PRN PROMETHA ZINE HCL 31308845960 No Longer Active Adam Yates MD Active POTASSIUM CHLORIDE 20 MEQ PACK by mouth twice a day prn POTASSIUM CHLORIDE 82299692746 No Longer Active Adam Yates MD Active PROMETHAZINE HCL 25 MG TABS 1 Q. 4 hr. PRN PROM ETHAZINE HCL 31741827158 No Longer Active Adam Yates MD Active INNOPRAN XL 120 MG [id number] Take one by mouth daily 2 PROPRANOLOL HCL SR BEADS 92549837273 No Longer Active Adam Yates MD A ctive FLAGYL 500 MG TABS 1 pill by mouth three times daily, for diarrh ea METRONIDAZOLE 92140581032 No Longer Active Hope Benavidez MD PhD Active DYAZIDE 37.5-25 MG CAPS 1 qd TRIAMTERENE-HC TZ 61063810158 No Longer Active Hope Benavidez MD PhD Active PROZAC 20 MG CAPS 1 q d FLUOXETINE HCL 49440 770224 No Longer Active Hope Benavidez MD PhD Active SIMVASTATIN 40 MG TABS 1 qd SIMVASTATIN 004 96639917 No Longer Active Adam Yates MD Active MELOXICAM 15 MG TABS 1 qd MELOXICAM 3653336 3148 No Longer Active Adam Yates MD Active IMODIUM A-D 2 MG TABS 2 onset at diarrhea and prn. LOPERAMIDE HCL 19164398764 Active Hope Benavidez MD PhD Active EXCEDRIN EXTRA STRENGTH 250-250-65 MG TABS 1-2 q6h PRN headache 201 04/16/21 [id number] 15143384264 Active Hope Benavidez MD PhD Active FLAGYL 500 MG TABS 1 qid METRONIDAZOLE 30568 706734 No Longer Active Adam Yates MD Active LEVAQUIN 750 MG TABS 1 qd LEVOFLOXACIN 5486 5240560 No Longer Active Adam Yates MD Active ADULT ASPIRIN LOW STRENGTH 81 MG TBDP 1 qd A SPIRIN 73381548800 Active Hope Benavidez MD PhD Active LEVAQUIN 750 MG TABS 1 qd LEVAQUIN 750 MG T ABS 068642 LEVOFLOXACIN Inactive FLAGYL 500 MG TABS 1 qid FLAGYL 500 MG TABS 471284 METRONIDAZOLE Inactive MELOXICAM 15 MG TABS 1 qd MELOXICAM 15 MG T ABS 565177 MELOXICAM Inactive SIMVASTATIN 40 MG TABS 1 qd SIMVASTATIN 40 MG TABS 073259 SIMVASTATIN Inactive PROZAC 20 MG CAPS 1 q d PROZAC 20 MG CAPS 31 0385 FLUOXETINE HCL Inactive DYAZIDE 37.5-25 MG CAPS 1 qd DYAZIDE 37.5 -25 MG CAPS 742313 TRIAMTERENE-HCTZ Inactive INNOPRAN XL 120 MG [id number] Take one by mouth daily 2 INNOPRAN XL 120 MG [id number] PROPRANOLOL HCL SR BEADS Inactive PROMETHAZINE HCL 25 MG TABS 1 Q. 4 hr. PRN PROMETHAZINE HCL 25 MG TABS 652379 PROMETHAZINE HCL Inactive POTASSIUM CHLORIDE 20 MEQ PACK by mouth twice a day prn POTASSIUM CHLORIDE 20 MEQ PACK 146375 POTASSIUM CHLORIDE Inactive PHENADOZ 25 MG SUPP 1 every 4 hrs. PRN PHENADOZ 2 5 MG SUPP 971782 PROMETHAZINE HCL Inactive ZOFRAN 8 MG TABS 1 tab by mouth every 12 hours prn 201 05/16/09 ZOFRAN 8 MG TABS 296695 ONDANSETRON HCL Inactive OMEPRAZOLE 20 MG CPDR 1 tablet by mouth daily for GERD OMEPRAZOLE 20 MG CPDR 309945 OMEPRAZOLE Inactive CYCLOBENZAPRINE HCL 10 MG TABS 1 tablet by mouth three times daily as needed for headaches CYCLOBENZAPRINE HCL 10 MG TABS 582144 CYCLOBENZAPRINE HCL Inactive VITAMIN D3 4000 IU 1 tab 3 times daily VITAMIN D3 4000 IU Inactive PROPRANOLOL HCL 80 MG TABS 1 tab tue. and thur. 04/10 PROPRANOLOL HCL 80 MG TABS 298992 PROPRANOLOL HCL Inactive FLAGYL 500 MG TABS 1 pill by mouth three times daily, for diarrh ea FLAGYL 500 MG TABS 587528 METRONIDAZOLE Inactive BACTRIM DS 800-160 MG TABS [...] Range Description Chart Maintenance: labs added to [employer] et - Chemistry magnesium, serum 2.0 mg/dL Chart Maintenance: Outside labs entered on [facility] - Chemistry sodium, serum 139 mmol/L potassium, serum 3.9 mmol/L blood glucose 85 mg/dL creatinine, serum 1.26 mg/dL aspartate aminotransferase (SGOT), serum 33 U/L alanine aminotransferase (SGPT), serum 44 U/L alkaline phosphatase, serum 127 U/L Chart Maintenance: Outside labs entered on [facility] - Hematology leukocyte count, blood 4.6 10*3/mm3 hemoglobin, blood 13.6 g/dL platelet count 162 10*3/mm3 Lab Report: BMP - Chemistry sodium, serum 141 mmol/L potassium, serum 4.2 mmol/L blood glucose 66 mg/dL creatinine, serum 1.16 mg/dL Lab Report: CBC W/DIFF, Comp. Metabolic Panel - Chemistry sodium, serum 138 mmol/L 224-894 7447/08/14 potassium, serum 4.0 mmol/L 3.5-5.2 chloride, serum [...] 0.40 mg/dL 0.00-1.00 sodium, serum 145 mmol/L 689-114 3593/02/02 potassium, serum 4.2 mmol/L 3.5-5.2 chloride, serum 104 mmol/L 98-107 carbon dioxide, venous blood 28.3 mmol/L 21.0-32 .0 blood glucose 93 mg/dL 65-110 urea nitrogen, blood 32 mg/dL 7-18 creatinine, serum 1.40 mg/dL 0.60-1.30 alanine aminotransferase (SGPT), serum 73 U/L 12-78 aspartate aminotransferase (SGOT), serum 42 U/L 15-37 calcium, serum 9.2 mg/dL 8.5-10.1 bilirubin, serum, total 0.40 mg/dL 0.00-1.00 sodium, serum 142 mmol/L 890-947 4461/04/27 potassium, serum 3.2 mmol/L 3.5-5.2 chloride, serum [...] 11 .6-14.8 platelet count 155 10^3/MM^3 10*3/mm3 119-472 5335/04/27 leukocyte count, blood 5.3 10^3/MM^3 10*3/mm3 4.6-10.2 [...] 11 .6-14.8 platelet count 213 10^3/MM^3 10*3/mm3 133-878 0058/08/14 leukocyte count, blood 5.8 10^3/MM^3 10*3/mm3 4.6-10.2 [...] - Chem istry sodium, serum 143 mmol/L 937-049 5665/04/15 potassium, serum 3.4 mmol/L 3.5-5.2 chloride, serum [...] Panel - Chemistry cholesterol, serum 209 mg/dL 567-397 2068/09/11 triglyceride, serum, fasting 113 mg/dL 30-200 HDL [...] semiquantitative 7.0 5.0-8.5 Lab Report: VITAMIN D, 25-HYDROXY/83244, MAGNESIUM/622 - Chemistry vitamin D 25-hydroxy, serum 41 ng/mL 30-100 Encounters Code Encounter Date Provider Facility CPT-42410 Level 4 Est. Patient 12:08:30 FINANCIAL ACCOUNTING ANALYST Hope cohn MD PhD [facility] CPT-85341 Level 4 Est. Patient 19:08:42 FINANCIAL ACCOUNTING ANALYST Hope cohn MD PhD [facility] CPT-56994 Level 4 Est. Patient 20:04:51 CDT Hope cohn MD PhD [facility] CPT-85419 Level 3 New Patient 01:46:11 FINANCIAL ACCOUNTING ANALYST Hope landers MD PhD [facility] Procedures Code Procedure Name Date Entry Date Standard Desc ription CPT-OV Office Visit 15:58:06 CDT CPT-J0897 Prolia 60 mg 08:45:38 CDT CPT-41216 Abx/Therapy Injection 08:45:38 CDT CPT-J3420 Vitamin B12 1000mcg (Cyanocobalamin) 09:26:20 FINANCIAL ACCOUNTING ANALYST CPT-22979 Abx/Therapy Injection 09:26:20 FINANCIAL ACCOUNTING ANALYST CPT-J3420 Vitamin B12 1000mcg (Cyanocobalamin) 09:44:40 FINANCIAL ACCOUNTING ANALYST CPT-09301 Abx/Therapy Injection 09:44:40 FINANCIAL ACCOUNTING ANALYST CPT-J3420 Vitamin B12 1000mcg (Cyanocobalamin) 09:15:54 FINANCIAL ACCOUNTING ANALYST CPT-35823 Abx/Therapy Injection 09:15:54 FINANCIAL ACCOUNTING ANALYST CPT-J3420 Vitamin B12 1000mcg (Cyanocobalamin) 09:46:44 FINANCIAL ACCOUNTING ANALYST CPT-88199 Abx/Therapy Injection 09:46:44 FINANCIAL ACCOUNTING ANALYST CPT-J3420 Vitamin B12 1000mcg (Cyanocobalamin) 09:47:34 FINANCIAL ACCOUNTING ANALYST CPT-13738 Abx/Therapy Injection 09:47:34 FINANCIAL ACCOUNTING ANALYST CPT-J3420 Vitamin B12 1000mcg (Cyanocobalamin) 14:35:50 FINANCIAL ACCOUNTING ANALYST CPT-J3420 Vitamin B12 1000mcg (Cyanocobalamin) 09:25:05 FINANCIAL ACCOUNTING ANALYST CPT-91064 Abx/Therapy Injection 09:25:05 FINANCIAL ACCOUNTING ANALYST CPT-G0008 Administration of Influenza Virus Vaccine 13:36:47 CDT CPT-97772 Fluzone High-Dose Intramuscular Suspension 11/15 13:36:47 CDT CPT-J0897 Prolia 60 mg 08:50:41 CDT CPT-77582 Abx/Therapy Injection 08:50:41 CDT CPT-53991 Bone Density 12:06:12 CDT CPT-66167 Bone Density 08:54:40 CDT CPT-OV Office Visit 15:37:02 CDT CPT-03166 Postop F/U Visit 15:47:49 CDT CPT-67208 Postop F/U Visit 15:21:02 CDT CPT-TCMH Transitional Care Mgmt-High 07:52:27 CDT 20 20/06/01 CPT-28532 Venipuncture Draw Fee 13:51:18 CDT CPT-11935 Venipuncture Draw Fee 10:14:55 FINANCIAL ACCOUNTING ANALYST CPT-57512 Venipuncture Draw Fee 13:39:45 FINANCIAL ACCOUNTING ANALYST CPT-OV Office Visit 15:11:22 FINANCIAL ACCOUNTING ANALYST CPT-10305 Venipuncture Draw Fee 09:20:49 FINANCIAL ACCOUNTING ANALYST CPT-72535 Venipuncture Draw Fee 16:52:15 FINANCIAL ACCOUNTING ANALYST CPT-61958 Venipuncture Draw Fee 10:37:24 FINANCIAL ACCOUNTING ANALYST CPT-59448 Venipuncture Draw Fee 08:21:21 FINANCIAL ACCOUNTING ANALYST CPT-43000 Venipuncture Draw Fee 08:30:20 FINANCIAL ACCOUNTING ANALYST CPT-42424 Venipuncture Draw Fee 14:53:21 FINANCIAL ACCOUNTING ANALYST CPT-38139 Venipuncture Draw Fee 09:40:56 FINANCIAL ACCOUNTING ANALYST CPT-33484 Venipuncture Draw Fee 10:30:47 FINANCIAL ACCOUNTING ANALYST CPT-42725 Venipuncture Draw Fee 10:46:17 FINANCIAL ACCOUNTING ANALYST CPT-33562 Venipuncture Draw Fee 11:12:45 FINANCIAL ACCOUNTING ANALYST CPT-41414 Venipuncture Draw Fee 09:53:33 FINANCIAL ACCOUNTING ANALYST CPT-10664 Venipuncture Draw Fee 11:53:51 FINANCIAL ACCOUNTING ANALYST CPT-76575 Venipuncture Draw Fee 10:33:50 FINANCIAL ACCOUNTING ANALYST CPT-93180 Venipuncture Draw Fee 10:05:01 FINANCIAL ACCOUNTING ANALYST CPT-93113 Venipuncture Draw Fee 14:32:52 FINANCIAL ACCOUNTING ANALYST CPT-52109 Venipuncture Draw Fee 09:46:13 FINANCIAL ACCOUNTING ANALYST CPT-42731 Venipuncture Draw Fee 11:34:27 FINANCIAL ACCOUNTING ANALYST CPT-34398 Venipuncture Draw Fee 13:17:16 FINANCIAL ACCOUNTING ANALYST CPT-99660 Venipuncture Draw Fee 12:05:39 CDT CPT-24226 Venipuncture Draw Fee 12:49:12 CDT CPT-26660 Venipuncture Draw Fee 12:37:18 CDT CPT-13209 Venipuncture Draw Fee 10:57:11 CDT CPT-41408 Venipuncture Draw Fee 13:47:40 CDT CPT-34563 Venipuncture Draw Fee 10:02:17 CDT CPT-05753 TB Tubersol 17:32:32 CDT CPT-OV Office Visit 16:21:53 CDT CPT-OV Office Visit 15:49:22 CDT CPT-OV Office Visit 17:16:31 CDT CPT-OV Office Visit 10:43:31 CDT
--- OUTSIDE RECORDS SUMMARY | 2019-02-09 12:42 | XMS REPORT | Clinical Summary ---
Author Author Admin, Florecita Munoz Organization [facility] [employer] Address Unknown Phone Unavailable Allergies, Adverse Reactions, [...] Sebaceous cyst, scalp 706.2 Resolved Kylie Holt [employer]CR[employer]E [employer]ING [employer] Sebaceous cyst Cervical lymphadenopathy, anterior, left 785.6 Resolv ed Kylie Holt [employer] Enlargement of lymph nodes Need for prophylactic vaccination and inoculation against in fluenza V04.81 Active Citlaly Watkins RMA Need for prophylactic vaccination and inoculation against influenza Preventive health care V70.0 Active Kylie Holt [employer] Routine general medical examination at a health care facility Thyroid nodule, left 241.0 Active Kylie Gonzalez PRN Nontoxic uninodular goiter Screening mammogram V76.12 Active Kylie MEEK RN Other screening mammogram ABDOMINAL PAIN, RIGHT LOWER QUADRANT ICD-789.03 Inactive Kina Joshua [employer]CR[employer]ING SUPER[employer]OR ADENOCARCINOMA, COLON, 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 Dick Yates MD ABDOMINAL PAIN, GENERALIZED ICD-789.07 Inactive Hope Benavidez MD PhD FEVER UNSPECIFIED ICD-780.60 Inactive Hope cohn MD PhD UNSPECIFIED VENOUS INSUFFICIENCY ICD-459.81 Elda ctive Adam Yates MD ADENOCARCINOMA, 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 Inac tive Hope Benavidez MD PhD Hyperkalemia ICD-276.7 Inactive Hope Benavidez MD PhD GERD ICD-530.81 Inactive Kylie Holt [employer]PER[employer]OR 2015 Health maintenance exam ICD-V70.0 Bam Yates MD Anemia ICD-285.9 Inactive Kylie Holt [employer]OR 07/24 Weakness ICD-780.79 Inactive Hope Benavidez MD P hD Aftercare following surgery of the teeth,oral cavity a nd digestive system, NEC ICD-V58.75 Inactive Adam Yates MD Colon cancer ICD-153.9 Inactive Adam luna MD Asymptomatic postmenopausal status (age-related) (natural) I CD-V49.81 Inactive Hope Benavidez MD PhD Dysuria ICD-788.1 Inactive Hope Benavidez MD PhD 201 05/19/01 Sebaceous cyst, scalp ICD-706.2 Inactive Tracy Holt [employer]CR[employer]E [employer]ING SUPER[employer]OR Cervical lymphadenopathy, anterior, left ICD-785.6 Inactive Kylie Holt [employer] Medication List Medication Instructions Start Date Stop Date Generic Name NDC Status Provider Patient Instruction VITAMIN D3 2000 UNIT ORAL CAPS Melaleuca-One daily CHOLECALCIFEROL [id number] Active Kylie Lundum [employer]ING SUPERVISOR Active PROBIOTIC DAILY ORAL CAPS Take one daily PROBIOTIC PRODUCT 71781050282 Active Kylie Lundum [employer]CRET[employer]ING SUPER[employer]OR Active IRON 325 (65 FE) MG TABS 1 every other day FERR OUS SULFATE 48717003349 No Longer Active Kylie Lundum [employer]CR[employer] SUPER[employer]OR Active FLORANEX PACK 1 pack three times daily, for bowel health LACTOBACILLUS 60705244448 No Longer Active Kylie Lundum [employer]CR[employer]ING SUPER[employer]OR Active LOMOTIL 2.5-0.025 MG TABS 1 tab by mouth prn 4 DIPHENOXYLATE-ATROPINE 46593459911 No Longer Active Kylie Yokum [employer]CR[employer] P[employer]ING SUPERVISOR Active MAGNESIUM GLUCONATE 250 MG TABS 1 tab tid 4 MAGNESIUM GLUCONATE 07227868837 No Longer Active Kylie Yokum [employer]ING SUPER[employer]OR Active CYANOCOBALAMIN 1000 MCG/ML INJ SOLN 1 injection every 2 weeks 20 20/01/03 CYANOCOBALAMIN 06737562457 No Longer Active Kylie Yokum [employer]ING SUPER[employer]OR Active ATENOLOL 25 MG ORAL TABS 1/2 pill by mouth daily, for headac hes, blood pressure ATENOLOL 42055517962 Active Kylie Yokum [employer]ING [employer]PER[employer]OR Active PROPRANOLOL HCL 80 MG TABS 1 tab tue. and thur. 04/10 PROPRANOLOL HCL 79747138587 No Longer Active Hope Benavidez MD PhD A ctive VITAMIN D3 4000 IU 1 tab 3 times daily VITAMIN D3 4000 IU No Longer Active Hope Benavidez MD PhD Active BACTRIM DS 800-160 MG TABS 1 pill by mouth twice daily, for UTI SULFAMETHOXAZOLE-TRIMETHOPRIM 88876469820 No Longer Active A attila Benavidez MD PhD Active PROLIA 60 MG/ML SOLN 1 shot every 6 months for osteoprosis DENOSUMAB 75497651149 Active Hope Benavidez MD PhD Active CALCIUM + D + K 750-500-40 MG-UNT-MCG TABS 1 tab by mouth tw ice daily CALCIUM-VITAMIN D-VITAMIN K 03834661947 Active Hope landers MD PhD Active DAILY VALUE MULTIVITAMIN TABS 1 tab by mouth twice daily MULTIPLE VITAMIN 81736789621 Active Hope Benavidez MD PhD Active FISH OIL 306 MG CAPS 1 tab by mouth three times daily OMEGA-3 FATTY ACIDS 23059821886 Active Hope Benavidez MD PhD Active LUTEIN 10 MG TABS 1 tab daily LUTEIN 83015802004 Act cash Hope Benavidez MD PhD Active TRIAMTERENE-HCTZ 37.5-25 MG TABS 1 tab by mouth daily TRIAMTERENE-HCTZ 16620299314 Active Kylie Holt [employer]PER[employer]OR Active CYCLOBENZAPRINE HCL 10 MG TABS 1 tablet by mouth three times daily as needed for headaches CYCLOBENZAPRINE HCL 50845004499 No Longe r Active Adam Yates MD Active OMEPRAZOLE 20 MG CPDR 1 tablet by mouth daily for GERD OMEPRAZOLE 55625276311 No Longer Active Adam Yates MD A ctive ZOFRAN 8 MG TABS 1 tab by mouth every 12 hours prn 201 05/16/09 ONDANSETRON HCL 25991002478 No Longer Active Adam Yates MD Active PHENADOZ 25 MG SUPP 1 every 4 hrs. PRN PROMETHA ZINE HCL 60425432576 No Longer Active Adam Yates MD Active POTASSIUM CHLORIDE 20 MEQ PACK by mouth twice a day prn POTASSIUM CHLORIDE 05189409697 No Longer Active Adam Yates MD Active PROMETHAZINE HCL 25 MG TABS 1 Q. 4 hr. PRN PROM ETHAZINE HCL 67779794912 No Longer Active Adam Yates MD Active INNOPRAN XL 120 MG [id number] Take one by mouth daily 2 PROPRANOLOL HCL SR BEADS 67525963672 No Longer Active Adam Yates MD A ctive FLAGYL 500 MG TABS 1 pill by mouth three times daily, for diarrh ea METRONIDAZOLE 11092954814 No Longer Active Hope Benavidez MD PhD Active DYAZIDE 37.5-25 MG CAPS 1 qd TRIAMTERENE-HC TZ 95849601213 No Longer Active Hope Benavidez MD PhD Active PROZAC 20 MG CAPS 1 q d FLUOXETINE HCL 18751 731001 No Longer Active Hope Benavidez MD PhD Active SIMVASTATIN 40 MG TABS 1 qd SIMVASTATIN 004 36082853 No Longer Active Adam Yates MD Active MELOXICAM 15 MG TABS 1 qd MELOXICAM 3091278 1811 No Longer Active Adam Yates MD Active IMODIUM A-D 2 MG TABS 2 onset at diarrhea and prn. LOPERAMIDE HCL 63507514598 Active Hope Benavidez MD PhD Active EXCEDRIN EXTRA STRENGTH 250-250-65 MG TABS 1-2 q6h PRN headache 201 04/16/21 [id number] 36155037879 Active Hope Benavidez MD PhD Active FLAGYL 500 MG TABS 1 qid METRONIDAZOLE 23845 448373 No Longer Active Adam Yates MD Active LEVAQUIN 750 MG TABS 1 qd LEVOFLOXACIN 5486 7812203 No Longer Active Adam Yates MD Active ADULT ASPIRIN LOW STRENGTH 81 MG TBDP 1 qd A SPIRIN 33339472982 Active Hope Benavidez MD PhD Active LEVAQUIN 750 MG TABS 1 qd LEVAQUIN 750 MG T ABS 685016 LEVOFLOXACIN Inactive FLAGYL 500 MG TABS 1 qid FLAGYL 500 MG TABS 686071 METRONIDAZOLE Inactive MELOXICAM 15 MG TABS 1 qd MELOXICAM 15 MG T ABS 569734 MELOXICAM Inactive SIMVASTATIN 40 MG TABS 1 qd SIMVASTATIN 40 MG TABS 728897 SIMVASTATIN Inactive PROZAC 20 MG CAPS 1 q d PROZAC 20 MG CAPS 31 0385 FLUOXETINE HCL Inactive DYAZIDE 37.5-25 MG CAPS 1 qd DYAZIDE 37.5 -25 MG CAPS 540491 TRIAMTERENE-HCTZ Inactive INNOPRAN XL 120 MG [id number] Take one by mouth daily 2 INNOPRAN XL 120 MG [id number] PROPRANOLOL HCL SR BEADS Inactive PROMETHAZINE HCL 25 MG TABS 1 Q. 4 hr. PRN PROMETHAZINE HCL 25 MG TABS 456120 PROMETHAZINE HCL Inactive POTASSIUM CHLORIDE 20 MEQ PACK by mouth twice a day prn POTASSIUM CHLORIDE 20 MEQ PACK 275797 POTASSIUM CHLORIDE Inactive PHENADOZ 25 MG SUPP 1 every 4 hrs. PRN PHENADOZ 2 5 MG SUPP 050776 PROMETHAZINE HCL Inactive ZOFRAN 8 MG TABS 1 tab by mouth every 12 hours prn 201 05/16/09 ZOFRAN 8 MG TABS 792775 ONDANSETRON HCL Inactive OMEPRAZOLE 20 MG CPDR 1 tablet by mouth daily for GERD OMEPRAZOLE 20 MG CPDR 230921 OMEPRAZOLE Inactive CYCLOBENZAPRINE HCL 10 MG TABS 1 tablet by mouth three times daily as needed for headaches CYCLOBENZAPRINE HCL 10 MG TABS 438093 CYCLOBENZAPRINE HCL Inactive VITAMIN D3 4000 IU 1 tab 3 times daily VITAMIN D3 4000 IU Inactive PROPRANOLOL HCL 80 MG TABS 1 tab tue. and thur. 04/10 PROPRANOLOL HCL 80 MG TABS 315483 PROPRANOLOL HCL Inactive CYANOCOBALAMIN 1000 MCG/ML INJ SOLN 1 injection every 2 weeks 20 20/01/03 CYANOCOBALAMIN 1000 MCG/ML INJ SOLN 191574 CYANOCOBALAM IN Inactive MAGNESIUM GLUCONATE 250 MG TABS 1 tab tid 4 MAGNESIUM GLUCONATE 250 MG TABS 423847 MAGNESIUM GLUCONATE Inactive LOMOTIL 2.5-0.025 MG TABS 1 tab by mouth prn 4 LOMOTIL 2.5- 0.025 MG TABS 6528448 DIPHENOXYLATE-ATROPINE Inactive FLORANEX PACK 1 pack three times daily, for bowel health FLORANEX PACK LACTOBACILLUS Inactive IRON 325 (65 FE) MG TABS 1 every other day IRON 325 (65 FE) MG TABS 155053 FERROUS SULFATE Inactive FLAGYL 500 MG TABS 1 pill by mouth three times daily, for diarrh ea FLAGYL 500 MG TABS 170894 METRONIDAZOLE Inactive BACTRIM DS 800-160 MG TABS 1 pill by mouth twice daily, for UTI BACTRIM DS 800-160 MG TABS 302866 SULFAMETHOXAZOLE-TRIM ETHOPRIM Inactive Advance Directives Directive Description [...] Panel - Chemistry sodium, serum 142 mmol/L 245-494 8662/04/20 carbon dioxide, venous blood 34.7 mmol/L 21.0-32 .0 potassium, serum 3.5 mmol/L 3.5-5.2 chloride, serum 102 mmol/L 98-107 blood glucose 102 mg/dL 65-110 urea nitrogen, blood 24 mg/dL 7-18 creatinine, serum 1.37 mg/dL 0.55-1.30 alanine aminotransferase (SGPT), serum 72 U/L -78 aspartate aminotransferase (SGOT), serum 44 U/L 15-37 calcium, serum 9.0 mg/dL 8.5-10.1 bilirubin, serum, total 0.50 mg/dL 0.00-1.00 sodium, serum 138 mmol/L 141-690 6356/10/23 carbon dioxide, venous blood 29.5 mmol/L 21.0-32 [...] 11 .6-14.8 platelet count 189 10^3/MM^3 10*3/mm3 108-285 5625/04/20 leukocyte count, blood 5.9 10^3/MM^3 10*3/mm3 4.6-10.2 [...] 1.24 m[iU]/mL 0.36-3.74 cholesterol, serum 227 mg/dL 391-482 3945/10/23 triglyceride, serum, fasting 144 mg/dL 30-200 HDL cholesterol, serum 60 mg/dL 32-96 LDL cholesterol, serum 138 mg/dL 0-130 Lab Report: Lipid Panel, MICROALBUMIN, T hyroid Stimulating Hormone (L) - Lab microalbumin, urine 10 0-19 Encounters Code Encounter Date Provider Facility CPT-57537 Level 4 Est. Patient 17:00:48 CDT Kylie Lund [facility] CPT-89828 Level 3 Est. Patient 13:15:54 CDT Kylie Lund [facility] CPT-98872 Level 3 Est. Patient 09:10:11 CDT Kylie Lund [facility] CPT-49342 Level 4 Est. Patient 12:08:30 AUDITING SPECIALIST Hope cohn MD PhD [facility] CPT-33265 Level 4 Est. Patient 19:08:42 AUDITING SPECIALIST Hope cohn MD PhD [facility] CPT-41509 Level 4 Est. Patient 20:04:51 CDT Hope cohn MD PhD [facility] CPT-27423 Level 3 New Patient 01:46:11 AUDITING SPECIALIST Hope landers MD PhD [facility] Procedures Code Procedure Name Date Entry Date Standard Desc ription CPT-91622 First Vx - Ix admin for Medicare patients 13:27:08 CDT CPT-56215 Fluzone High-Dose Intramuscular Suspension 11/26 13:27:08 CDT CPT-G0438 Initial Annual Wellness Exam 14:19:57 CD T CPT-G0009 Administration of Pneumococcal Vaccine 9 11:36:25 CDT CPT-73380 Prevnar 13 Intramuscular Suspension 1 1:36:25 CDT CPT-21292 Prevnar 13 Intramuscular Suspension 1 0:40:58 CDT CPT-J0897 Prolia 60 mg 10:37:16 CDT CPT-83844 Abx/Therapy Injection 10:37:16 CDT CPT-J0897 Prolia 60 mg 16:09:34 AUDITING SPECIALIST CPT-J0897 Prolia 60 mg 11:10:35 AUDITING SPECIALIST CPT-03579 Abx/Therapy Injection 11:10:35 AUDITING SPECIALIST CPT-000 Give Appropriate Flu Vaccine 17:01:15 AUDITING SPECIALIST 2 CPT-27049 Fluzone High Dose (65+) 15:03:08 AUDITING SPECIALIST 02/15 CPT-39521 Immunization Single Admin 15:03:08 AUDITING SPECIALIST 2014 CPT-OV Office Visit 15:58:06 CDT CPT-J0897 Prolia 60 mg 08:45:38 CDT CPT-26189 Abx/Therapy Injection 08:45:38 CDT CPT-J3420 Vitamin B12 1000mcg (Cyanocobalamin) 09:26:20 AUDITING SPECIALIST CPT-42884 Abx/Therapy Injection 09:26:20 AUDITING SPECIALIST CPT-J3420 Vitamin B12 1000mcg (Cyanocobalamin) 09:44:40 AUDITING SPECIALIST CPT-08959 Abx/Therapy Injection 09:44:40 AUDITING SPECIALIST CPT-J3420 Vitamin B12 1000mcg (Cyanocobalamin) 09:15:54 AUDITING SPECIALIST CPT-92344 Abx/Therapy Injection 09:15:54 AUDITING SPECIALIST CPT-J3420 Vitamin B12 1000mcg (Cyanocobalamin) 09:46:44 AUDITING SPECIALIST CPT-47511 Abx/Therapy Injection 09:46:44 AUDITING SPECIALIST CPT-J3420 Vitamin B12 1000mcg (Cyanocobalamin) 09:47:34 AUDITING SPECIALIST CPT-01739 Abx/Therapy Injection 09:47:34 AUDITING SPECIALIST CPT-J3420 Vitamin B12 1000mcg (Cyanocobalamin) 14:35:50 AUDITING SPECIALIST CPT-J3420 Vitamin B12 1000mcg (Cyanocobalamin) 09:25:05 AUDITING SPECIALIST CPT-68307 Abx/Therapy Injection 09:25:05 AUDITING SPECIALIST CPT-G0008 Administration of Influenza Virus Vaccine 13:36:47 CDT CPT-49392 Fluzone High-Dose Intramuscular Suspension 11/15 13:36:47 CDT CPT-J0897 Prolia 60 mg 08:50:41 CDT CPT-78491 Abx/Therapy Injection 08:50:41 CDT CPT-93251 Bone Density 12:06:12 CDT CPT-56981 Bone Density 08:54:40 CDT CPT-OV Office Visit 15:37:02 CDT CPT-27502 Postop F/U Visit 15:47:49 CDT CPT-46173 Postop F/U Visit 15:21:02 CDT CPT-TCMH Transitional Care Mgmt-High 07:52:27 CDT 20 20/06/01 CPT-98658 Venipuncture Draw Fee 13:51:18 CDT CPT-35153 Venipuncture Draw Fee 10:14:55 AUDITING SPECIALIST CPT-20021 Venipuncture Draw Fee 13:39:45 AUDITING SPECIALIST CPT-OV Office Visit 15:11:22 AUDITING SPECIALIST CPT-45257 Venipuncture Draw Fee 09:20:49 AUDITING SPECIALIST CPT-28208 Venipuncture Draw Fee 16:52:15 AUDITING SPECIALIST CPT-41873 Venipuncture Draw Fee 10:37:24 AUDITING SPECIALIST CPT-59565 Venipuncture Draw Fee 08:21:21 AUDITING SPECIALIST CPT-92052 Venipuncture Draw Fee 08:30:20 AUDITING SPECIALIST CPT-25017 Venipuncture Draw Fee 14:53:21 AUDITING SPECIALIST CPT-19362 Venipuncture Draw Fee 09:40:56 AUDITING SPECIALIST CPT-37804 Venipuncture Draw Fee 10:30:47 AUDITING SPECIALIST CPT-17141 Venipuncture Draw Fee 10:46:17 AUDITING SPECIALIST CPT-15288 Venipuncture Draw Fee 11:12:45 AUDITING SPECIALIST CPT-05838 Venipuncture Draw Fee 09:53:33 AUDITING SPECIALIST CPT-26897 Venipuncture Draw Fee 11:53:51 AUDITING SPECIALIST CPT-46444 Venipuncture Draw Fee 10:33:50 AUDITING SPECIALIST CPT-94844 Venipuncture Draw Fee 10:05:01 AUDITING SPECIALIST CPT-25568 Venipuncture Draw Fee 14:32:52 AUDITING SPECIALIST CPT-93633 Venipuncture Draw Fee 09:46:13 AUDITING SPECIALIST CPT-98070 Venipuncture Draw Fee 11:34:27 AUDITING SPECIALIST CPT-44444 Venipuncture Draw Fee 13:17:16 AUDITING SPECIALIST CPT-89809 Venipuncture Draw Fee 12:05:39 CDT CPT-18279 Venipuncture Draw Fee 12:49:12 CDT CPT-54789 Venipuncture Draw Fee 12:37:18 CDT CPT-32300 Venipuncture Draw Fee 10:57:11 CDT CPT-17558 Venipuncture Draw Fee 13:47:40 CDT CPT-96494 Venipuncture Draw Fee 10:02:17 CDT CPT-39774 TB Tubersol 17:32:32 CDT CPT-OV Office Visit 16:21:53 CDT CPT-OV Office Visit 15:49:22 CDT CPT-OV Office Visit 17:16:31 CDT CPT-OV Office Visit 10:43:31 CDT
--- OUTSIDE RECORDS SUMMARY | 2019-02-09 12:42 | XMS REPORT | Clinical Summary ---
Author Author Florecita Macario Organization [facility] Address Unknown Phone Unavailable Allergies, Adverse Reactions, [...] cohn MD PhD UNSPECIFIED VENOUS INSUFFICIENCY ICD-459.81 [place] ctive Adam Yates MD ADENOCARCINOMA, ASCENDING COLON [...] tab tue. and thur. 04/10 PROPRANOLOL HCL [id number] No Longer Active Hope Benavidez MD PhD A ctive IRON 325 (65 FE) MG TABS 1 every other day FERROUS SULFATE 47187641836 Active Hope Benavidez MD PhD Active VITAMIN D3 4000 IU 1 tab 3 times daily VITAMIN D3 4000 IU No Longer Active Hope Benavidez MD PhD Active CYANOCOBALAMIN 1000 MCG/ML INJ SOLN 1 injection every 2 weeks 01/09 CYANOCOBALAMIN 15889648477 Active Laura Elder Active BACTRIM DS 800-160 MG TABS 1 pill by mouth twice daily, for UTI SULFAMETHOXAZOLE-TRIMETHOPRIM 43396586163 No Longer Active A attila Benavidez MD PhD Active PROLIA 60 MG/ML SOLN 1 shot every 6 months for osteoprosis DENOSUMAB 10290683716 Active Hope Benavidez MD PhD Active CALCIUM + D + K 750-500-40 MG-UNT-MCG TABS 1 tab by mouth tw ice daily CALCIUM-VITAMIN D-VITAMIN K 20938928881 Active Hope landers MD PhD Active DAILY VALUE MULTIVITAMIN TABS 1 tab by mouth twice daily MULTIPLE VITAMIN 71289666519 Active Hope Benavidez MD PhD Active FISH OIL 306 MG CAPS 1 tab by mouth three times daily OMEGA-3 FATTY ACIDS 18955635310 Active Hope Benavidez MD PhD Active LUTEIN 10 MG TABS 1 tab daily LUTEIN 35640877797 Act cash Hope Benavidez MD PhD Active FLORANEX PACK 1 pack three times daily, for bowel health LACTOBACILLUS 67871303981 Active Hope Benavidez MD PhD Active LOMOTIL 2.5-0.025 MG TABS 1 tab by mouth prn DIPHENOXYLATE-ATROPINE 11205253494 Active Hope Benavidez MD PhD Active TRIAMTERENE-HCTZ 37.5-25 MG TABS 1 tab by mouth daily TRIAMTERENE-HCTZ 30743424542 Active Hope Benavidez MD PhD Acti ve MAGNESIUM GLUCONATE 250 MG TABS 1 tab tid MAGN ESIUM GLUCONATE 68191657600 Active Adam Yates MD Active ATENOLOL 50 MG TABS 1/2 tab q other day m-w-f ATE NOLOL 46343335882 Active Hope Benavidez MD PhD Active CYCLOBENZAPRINE HCL 10 MG TABS 1 tablet by mouth three times daily as needed for headaches CYCLOBENZAPRINE HCL 45986217925 No Longe r Active Adam Yates MD Active OMEPRAZOLE 20 MG CPDR 1 tablet by mouth daily for GERD OMEPRAZOLE 15362618629 No Longer Active Adam Yates MD A ctive ZOFRAN 8 MG TABS 1 tab by mouth every 12 hours prn 201 05/16/09 ONDANSETRON HCL 36295131277 No Longer Active Adam Yates MD Active PHENADOZ 25 MG SUPP 1 every 4 hrs. PRN PROMETHA ZINE HCL 44605997842 No Longer Active Adam Yates MD Active POTASSIUM CHLORIDE 20 MEQ PACK by mouth twice a day prn POTASSIUM CHLORIDE 07487172533 No Longer Active Adam Yates MD Active PROMETHAZINE HCL 25 MG TABS 1 Q. 4 hr. PRN PROM ETHAZINE HCL 66606692852 No Longer Active Adam Yates MD Active INNOPRAN XL 120 MG [id number] Take one by mouth daily 2 PROPRANOLOL HCL SR BEADS 44660473694 No Longer Active Adam Yates MD A ctive FLAGYL 500 MG TABS 1 pill by mouth three times daily, for diarrh ea METRONIDAZOLE 71659253247 No Longer Active Hope Benavidez MD PhD Active DYAZIDE 37.5-25 MG CAPS 1 qd TRIAMTERENE-HC TZ 87790216936 No Longer Active Hope Benavidez MD PhD Active PROZAC 20 MG CAPS 1 q d FLUOXETINE HCL 27209 157346 No Longer Active Hope Benavidez MD PhD Active SIMVASTATIN 40 MG TABS 1 qd SIMVASTATIN 004 22693443 No Longer Active Adam Yates MD Active MELOXICAM 15 MG TABS 1 qd MELOXICAM 3645195 0689 No Longer Active Adam Yates MD Active IMODIUM A-D 2 MG TABS 2 onset at diarrhea and prn. LOPERAMIDE HCL 98617078374 Active Hope Benavidez MD PhD Active EXCEDRIN EXTRA STRENGTH 250-250-65 MG TABS 1-2 q6h PRN headache 201 04/16/21 [id number] 51302065164 Active Hope Benavidez MD PhD Active FLAGYL 500 MG TABS 1 qid METRONIDAZOLE 24902 320798 No Longer Active Adam Yates MD Active LEVAQUIN 750 MG TABS 1 qd LEVOFLOXACIN 5486 7101722 No Longer Active Adam Yates MD Active ADULT ASPIRIN LOW STRENGTH 81 MG TBDP 1 qd A SPIRIN 35754859481 Active Hope Benavidez MD PhD Active LEVAQUIN 750 MG TABS 1 qd LEVAQUIN 750 MG T ABS 894997 LEVOFLOXACIN Inactive FLAGYL 500 MG TABS 1 qid FLAGYL 500 MG TABS 695700 METRONIDAZOLE Inactive MELOXICAM 15 MG TABS 1 qd MELOXICAM 15 MG T ABS 968692 MELOXICAM Inactive SIMVASTATIN 40 MG TABS 1 qd SIMVASTATIN 40 MG TABS 885067 SIMVASTATIN Inactive PROZAC 20 MG CAPS 1 q d PROZAC 20 MG CAPS 31 0385 FLUOXETINE HCL Inactive DYAZIDE 37.5-25 MG CAPS 1 qd DYAZIDE 37.5 -25 MG CAPS 789422 TRIAMTERENE-HCTZ Inactive INNOPRAN XL 120 MG [id number] Take one by mouth daily 2 INNOPRAN XL 120 MG [id number] PROPRANOLOL HCL SR BEADS Inactive PROMETHAZINE HCL 25 MG TABS 1 Q. 4 hr. PRN PROMETHAZINE HCL 25 MG TABS 276963 PROMETHAZINE HCL Inactive POTASSIUM CHLORIDE 20 MEQ PACK by mouth twice a day prn POTASSIUM CHLORIDE 20 MEQ PACK 492618 POTASSIUM CHLORIDE Inactive PHENADOZ 25 MG SUPP 1 every 4 hrs. PRN PHENADOZ 2 5 MG SUPP 112295 PROMETHAZINE HCL Inactive ZOFRAN 8 MG TABS 1 tab by mouth every 12 hours prn 201 05/16/09 ZOFRAN 8 MG TABS 208181 ONDANSETRON HCL Inactive OMEPRAZOLE 20 MG CPDR 1 tablet by mouth daily for GERD OMEPRAZOLE 20 MG CPDR 893441 OMEPRAZOLE Inactive CYCLOBENZAPRINE HCL 10 MG TABS 1 tablet by mouth three times daily as needed for headaches CYCLOBENZAPRINE HCL 10 MG TABS 839845 CYCLOBENZAPRINE HCL Inactive VITAMIN D3 4000 IU 1 tab 3 times daily VITAMIN D3 4000 IU Inactive PROPRANOLOL HCL 80 MG TABS 1 tab tue. and thur. 04/10 PROPRANOLOL HCL 80 MG TABS 290098 PROPRANOLOL HCL Inactive FLAGYL 500 MG TABS 1 pill by mouth three times daily, for diarrh ea FLAGYL 500 MG TABS 360983 METRONIDAZOLE Inactive BACTRIM DS 800-160 MG TABS [...] Range Description Chart Maintenance: labs added to [facility] et - Chemistry magnesium, serum 2.0 mg/dL Chart Maintenance: Outside labs entered on [facility] - Chemistry sodium, serum 139 mmol/L potassium, serum 3.9 mmol/L blood glucose 85 mg/dL creatinine, serum 1.26 mg/dL aspartate aminotransferase (SGOT), serum 33 U/L alanine aminotransferase (SGPT), serum 44 U/L alkaline phosphatase, serum 127 U/L Chart Maintenance: Outside labs entered on [facility] - Hematology leukocyte count, blood 4.6 10*3/mm3 hemoglobin, blood 13.6 g/dL platelet count 162 10*3/mm3 Lab Report: Basic Metabolic Panel - Chem istry sodium, serum 136 mmol/L 707-150 3149/05/02 potassium, serum 4.1 mmol/L 3.5-5.2 chloride, serum [...] 1.16 mg/dL Lab Report: [facility] - Chemistry sodium, serum 137 mmol/L potassium, serum 3.8 mmol/L blood glucose 79 mg/dL creatinine, serum 1.02 mg/dL magnesium, serum 1.2 mg/dL Lab Report: [facility]/ [facility] - Hematology leukocyte count, blood 8.7 10*3/mm3 hemoglobin, blood 10.8 g/dL platelet count 319 10*3/mm3 Lab Report: CBC W/DIFF, Comp. Metabolic Panel - Chemistry sodium, serum 138 mmol/L 719-585 9593/08/14 potassium, serum 4.0 mmol/L 3.5-5.2 chloride, serum [...] 0.40 mg/dL 0.00-1.00 sodium, serum 145 mmol/L 688-904 7816/02/02 potassium, serum 4.2 mmol/L 3.5-5.2 chloride, serum [...] 11 .6-14.8 platelet count 155 10^3/MM^3 10*3/mm3 048-476 5300/08/14 leukocyte count, blood 5.8 10^3/MM^3 10*3/mm3 4.6-10.2 [...] - Chem istry sodium, serum 143 mmol/L 535-915 6487/04/15 potassium, serum 3.4 mmol/L 3.5-5.2 chloride, serum [...] Panel - Chemistry cholesterol, serum 209 mg/dL 276-143 6155/09/11 triglyceride, serum, fasting 113 mg/dL 30-200 HDL [...] semiquantitative 7.0 5.0-8.5 Lab Report: VITAMIN D, 25-HYDROXY/58723, MAGNESIUM/622 - Chemistry vitamin D 25-hydroxy, serum 41 ng/mL 30-100 Encounters Code Encounter Date Provider Facility CPT-29227 Level 4 Est. Patient 12:08:30 [employer] Hope cohn MD PhD [facility] CPT-14594 Level 4 Est. Patient 19:08:42 [employer] Hope cohn MD PhD [facility] CPT-11009 Level 4 Est. Patient 20:04:51 CDT Hope cohn MD PhD [facility] CPT-58496 Level 3 New Patient 01:46:11 [employer] Hope landers MD PhD [facility] Procedures Code Procedure Name Date Entry Date Standard Desc ription CPT-J0897 Prolia 60 mg 08:45:38 CDT CPT-30407 Abx/Therapy Injection 08:45:38 CDT CPT-J3420 Vitamin B12 1000mcg (Cyanocobalamin) 09:26:20 [employer] CPT-73466 Abx/Therapy Injection 09:26:20 [employer] CPT-J3420 Vitamin B12 1000mcg (Cyanocobalamin) 09:44:40 [employer] CPT-13930 Abx/Therapy Injection 09:44:40 [employer] CPT-J3420 Vitamin B12 1000mcg (Cyanocobalamin) 09:15:54 [employer] CPT-27473 Abx/Therapy Injection 09:15:54 [employer] CPT-J3420 Vitamin B12 1000mcg (Cyanocobalamin) 09:46:44 [employer] CPT-76002 Abx/Therapy Injection 09:46:44 [employer] CPT-J3420 Vitamin B12 1000mcg (Cyanocobalamin) 09:47:34 [employer] CPT-72064 Abx/Therapy Injection 09:47:34 [employer] CPT-J3420 Vitamin B12 1000mcg (Cyanocobalamin) 14:35:50 [employer] CPT-J3420 Vitamin B12 1000mcg (Cyanocobalamin) 09:25:05 [employer] CPT-97135 Abx/Therapy Injection 09:25:05 [employer] CPT-G0008 Administration of Influenza Virus Vaccine 13:36:47 CDT CPT-95860 Fluzone High-Dose Intramuscular Suspension 11/15 13:36:47 CDT CPT-J0897 Prolia 60 mg 08:50:41 CDT CPT-11350 Abx/Therapy Injection 08:50:41 CDT CPT-72868 Bone Density 12:06:12 CDT CPT-38871 Bone Density 08:54:40 CDT CPT-OV Office Visit 15:37:02 CDT CPT-02379 Postop F/U Visit 15:47:49 CDT CPT-65392 Postop F/U Visit 15:21:02 CDT CPT-TCMH Transitional Care Mgmt-High 07:52:27 CDT 20 20/06/01 CPT-19095 Venipuncture Draw Fee 13:51:18 CDT CPT-04038 Venipuncture Draw Fee 10:14:55 [employer] CPT-22008 Venipuncture Draw Fee 13:39:45 [employer] CPT-OV Office Visit 15:11:22 [employer] CPT-24957 Venipuncture Draw Fee 09:20:49 [employer] CPT-19246 Venipuncture Draw Fee 16:52:15 [employer] CPT-91187 Venipuncture Draw Fee 10:37:24 [employer] CPT-29695 Venipuncture Draw Fee 08:21:21 [employer] CPT-32847 Venipuncture Draw Fee 08:30:20 [employer] CPT-83105 Venipuncture Draw Fee 14:53:21 [employer] CPT-38587 Venipuncture Draw Fee 09:40:56 [employer] CPT-49768 Venipuncture Draw Fee 10:30:47 [employer] CPT-37952 Venipuncture Draw Fee 10:46:17 [employer] CPT-23226 Venipuncture Draw Fee 11:12:45 [employer] CPT-91513 Venipuncture Draw Fee 09:53:33 [employer] CPT-15531 Venipuncture Draw Fee 11:53:51 [employer] CPT-96024 Venipuncture Draw Fee 10:33:50 [employer] CPT-32702 Venipuncture Draw Fee 10:05:01 [employer] CPT-03364 Venipuncture Draw Fee 14:32:52 [employer] CPT-69122 Venipuncture Draw Fee 09:46:13 [employer] CPT-82833 Venipuncture Draw Fee 11:34:27 [employer] CPT-68022 Venipuncture Draw Fee 13:17:16 [employer] CPT-50504 Venipuncture Draw Fee 12:05:39 CDT CPT-02752 Venipuncture Draw Fee 12:49:12 CDT CPT-72195 Venipuncture Draw Fee 12:37:18 CDT CPT-81204 Venipuncture Draw Fee 10:57:11 CDT CPT-25779 Venipuncture Draw Fee 13:47:40 CDT CPT-95374 Venipuncture Draw Fee 10:02:17 CDT CPT-04965 TB Tubersol 17:32:32 CDT CPT-OV Office Visit 16:21:53 CDT CPT-OV Office Visit 15:49:22 CDT CPT-OV Office Visit 17:16:31 CDT CPT-OV Office Visit 10:43:31 CDT
--- OUTSIDE RECORDS SUMMARY | 2019-02-09 12:42 | XMS REPORT | Clinical Summary ---
Author Author Renaldo, Florecita Munoz Organization [facility] Address Unknown Phone Unavailable Allergies, Adverse Reactions, [...] PhD Hyperpotassemia GERD 530.81 Resolved Kylie Yokum SHOW GIRL Esophageal reflux Health maintenance exam V70.0 Resolved Adolfo Yates MD Routine general medical examination at a health care facility Anemia 285.9 Resolved Kylie Holt SHOW GIRL Anemia, unspecified Personal history of malignant neoplasm [...] Sebaceous cyst, scalp 706.2 Resolved Kylie Holt SHOW GIRL Sebaceous cyst Cervical lymphadenopathy, anterior, left 785.6 Resolv ed Kylie Holt SHOW GIRL Enlargement of lymph nodes Need for prophylactic vaccination and inoculation against in fluenza V04.81 Resolved Adam Yates MD Need for prophylactic vaccination and inoculation against influenza Preventive health care V70.0 Active Kylie Hlot SHOW GIRL Routine general medical examination at a health care facility Thyroid nodule, left 241.0 Active Kylie Gonzalez PRN Nontoxic uninodular goiter Screening mammogram V76.12 Active Kylie Holt AP RN Other screening mammogram Mandy 706.2 Active Adam Yates MD Sebaceous cyst ABDOMINAL PAIN, RIGHT LOWER QUADRANT ICD-789.03 Inactive Kina Joshua SHOW GIRL ADENOCARCINOMA, COLON, 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 Dick Yates MD ABDOMINAL PAIN, GENERALIZED ICD-789.07 Inactive Hope Benavidez MD PhD FEVER UNSPECIFIED ICD-780.60 Inactive Hope cohn MD PhD UNSPECIFIED VENOUS INSUFFICIENCY ICD-459.81 [place] ctive Adam Yates MD ADENOCARCINOMA, 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 Inac tive Hope Benavidez MD PhD Hyperkalemia ICD-276.7 Inactive Hope Benavidez MD PhD GERD ICD-530.81 Inactive Kylie Holt SHOW GIRL 2015 Health maintenance exam ICD-V70.0 Bam Yates MD Anemia ICD-285.9 Inactive Kylie Holt SHOW GIRL 07/24 Weakness ICD-780.79 Inactive Hope Benavidez MD [...] cyst, scalp ICD-706.2 Inactive Tracy shubham Yanet SHOW GIRL Cervical lymphadenopathy, anterior, left ICD-785.6 Inactive Kylie Holt SHOW GIRL Need for prophylactic vaccination and inoculation against in fluenza ICD-V04.81 Bam Yates MD Medication List Medication Instructions Start Date Stop Date Generic Name NDC Status Provider Patient Instruction VITAMIN D3 2000 UNIT ORAL CAPS Melaleuca-One daily CHOLECALCIFEROL 50542917849 Active Kylie Yokum SHOW GIRL Active PROBIOTIC DAILY ORAL CAPS Take one daily PROBIOTIC PRODUCT 48558308546 Active Kylie Holt SHOW GIRL Active IRON 325 (65 FE) MG TABS 1 every other day FERR OUS SULFATE 59908019785 No Longer Active Kylie Holt SHOW GIRL Active FLORANEX PACK 1 pack three times daily, for bowel health LACTOBACILLUS 30490468468 No Longer Active Kylie Holt SHOW GIRL Active LOMOTIL 2.5-0.025 MG TABS 1 tab by mouth prn 4 DIPHENOXYLATE-ATROPINE 46580010542 No Longer Active Kylie Lundum SHOW GIRL Active MAGNESIUM GLUCONATE 250 MG TABS 1 tab tid 4 MAGNESIUM GLUCONATE 62674299361 No Longer Active Kylie Holt SHOW GIRL Active CYANOCOBALAMIN 1000 MCG/ML INJ SOLN 1 injection every 2 weeks 20 20/01/03 CYANOCOBALAMIN 62961016092 No Longer Active Kylie Holt SHOW GIRL Active ATENOLOL 25 MG ORAL TABS 1/2 pill by mouth daily, for headac hes, blood pressure ATENOLOL 45625653247 Active Kylie Lundum SHOW GIRL Active PROPRANOLOL HCL 80 MG TABS 1 tab tue. and thur. 04/10 PROPRANOLOL HCL 50564651065 No Longer Active Hope Benavidez MD PhD A ctive VITAMIN D3 4000 IU 1 tab 3 times daily VITAMIN D3 4000 IU No Longer Active Hope Benavidez MD PhD Active BACTRIM DS 800-160 MG TABS 1 pill by mouth twice daily, for UTI SULFAMETHOXAZOLE-TRIMETHOPRIM 59536136977 No Longer Active A attila Benavidez MD PhD Active PROLIA 60 MG/ML SOLN 1 shot every 6 months for osteoprosis DENOSUMAB 32680094014 Active Hope Benavidez MD PhD Active CALCIUM + D + K 750-500-40 MG-UNT-MCG TABS 1 tab by mouth tw ice daily CALCIUM-VITAMIN D-VITAMIN K 52906079280 Active Hope landers MD PhD Active DAILY VALUE MULTIVITAMIN TABS 1 tab by mouth twice daily MULTIPLE VITAMIN 51773424075 Active Hope Benavidez MD PhD Active FISH OIL 306 MG CAPS 1 tab by mouth three times daily OMEGA-3 FATTY ACIDS 83806890016 Active Hope Benavidez MD PhD Active LUTEIN 10 MG TABS 1 tab daily LUTEIN 59569735408 Act cash Hope Benavidez MD PhD Active TRIAMTERENE-HCTZ 37.5-25 MG TABS 1 tab by mouth daily TRIAMTERENE-HCTZ 93774786010 Active Kylieshubham Holt SHOW GIRL Active CYCLOBENZAPRINE HCL 10 MG TABS 1 tablet by mouth three times daily as needed for headaches CYCLOBENZAPRINE HCL 37766967894 No Longe r Active Adam Yates MD Active OMEPRAZOLE 20 MG CPDR 1 tablet by mouth daily for GERD OMEPRAZOLE 77465790777 No Longer Active Adam Yates MD A ctive ZOFRAN 8 MG TABS 1 tab by mouth every 12 hours prn 201 05/16/09 ONDANSETRON HCL 83929425362 No Longer Active Adam Yates MD Active PHENADOZ 25 MG SUPP 1 every 4 hrs. PRN PROMETHA ZINE HCL 59098059142 No Longer Active Adam Yates MD Active POTASSIUM CHLORIDE 20 MEQ PACK by mouth twice a day prn POTASSIUM CHLORIDE 43590759332 No Longer Active Adam Yates MD Active PROMETHAZINE HCL 25 MG TABS 1 Q. 4 hr. PRN PROM ETHAZINE HCL 93913218606 No Longer Active Adam Yates MD Active INNOPRAN XL 120 MG [id number] Take one by mouth daily 2 PROPRANOLOL HCL SR BEADS 46100611075 No Longer Active Adam Yates MD A ctive FLAGYL 500 MG TABS 1 pill by mouth three times daily, for diarrh ea METRONIDAZOLE 17048912460 No Longer Active Hope Benavidez MD PhD Active DYAZIDE 37.5-25 MG CAPS 1 qd TRIAMTERENE-HC TZ 68891949405 No Longer Active Hope Benavidez MD PhD Active PROZAC 20 MG CAPS 1 q d FLUOXETINE HCL 13902 368995 No Longer Active Hope Benavidez MD PhD Active SIMVASTATIN 40 MG TABS 1 qd SIMVASTATIN 004 50350863 No Longer Active Adam Yates MD Active MELOXICAM 15 MG TABS 1 qd MELOXICAM 5710626 3767 No Longer Active Adam Yates MD Active IMODIUM A-D 2 MG TABS 2 onset at diarrhea and prn. LOPERAMIDE HCL 75676736408 Active Hope Benavidez MD PhD Active EXCEDRIN EXTRA STRENGTH 250-250-65 MG TABS 1-2 q6h PRN headache 201 04/16/21 [id number] 74597507668 Active Hope Benavidez MD PhD Active FLAGYL 500 MG TABS 1 qid METRONIDAZOLE 73295 149782 No Longer Active Adam Yates MD Active LEVAQUIN 750 MG TABS 1 qd LEVOFLOXACIN 5486 7111337 No Longer Active Adam Yates MD Active ADULT ASPIRIN LOW STRENGTH 81 MG TBDP 1 qd A SPIRIN 11441870930 Active Hope Benavidez MD PhD Active LEVAQUIN 750 MG TABS 1 qd LEVAQUIN 750 MG T ABS 850838 LEVOFLOXACIN Inactive FLAGYL 500 MG TABS 1 qid FLAGYL 500 MG TABS 870708 METRONIDAZOLE Inactive MELOXICAM 15 MG TABS 1 qd MELOXICAM 15 MG T ABS 569895 MELOXICAM Inactive SIMVASTATIN 40 MG TABS 1 qd SIMVASTATIN 40 MG TABS 455473 SIMVASTATIN Inactive PROZAC 20 MG CAPS 1 q d PROZAC 20 MG CAPS 31 0385 FLUOXETINE HCL Inactive DYAZIDE 37.5-25 MG CAPS 1 qd DYAZIDE 37.5 -25 MG CAPS 645391 TRIAMTERENE-HCTZ Inactive INNOPRAN XL 120 MG [id number] Take one by mouth daily 2 INNOPRAN XL 120 MG [id number] PROPRANOLOL HCL SR BEADS Inactive PROMETHAZINE HCL 25 MG TABS 1 Q. 4 hr. PRN PROMETHAZINE HCL 25 MG TABS 691011 PROMETHAZINE HCL Inactive POTASSIUM CHLORIDE 20 MEQ PACK by mouth twice a day prn POTASSIUM CHLORIDE 20 MEQ PACK 902047 POTASSIUM CHLORIDE Inactive PHENADOZ 25 MG SUPP 1 every 4 hrs. PRN PHENADOZ 2 5 MG SUPP 777172 PROMETHAZINE HCL Inactive ZOFRAN 8 MG TABS 1 tab by mouth every 12 hours prn 201 05/16/09 ZOFRAN 8 MG TABS 923392 ONDANSETRON HCL Inactive OMEPRAZOLE 20 MG CPDR 1 tablet by mouth daily for GERD OMEPRAZOLE 20 MG CPDR 827149 OMEPRAZOLE Inactive CYCLOBENZAPRINE HCL 10 MG TABS 1 tablet by mouth three times daily as needed for headaches CYCLOBENZAPRINE HCL 10 MG TABS 066970 CYCLOBENZAPRINE HCL Inactive VITAMIN D3 4000 IU 1 tab 3 times daily VITAMIN D3 4000 IU Inactive PROPRANOLOL HCL 80 MG TABS 1 tab tue. and thur. 04/10 PROPRANOLOL HCL 80 MG TABS 378484 PROPRANOLOL HCL Inactive CYANOCOBALAMIN 1000 MCG/ML INJ SOLN 1 injection every 2 weeks 20 20/01/03 CYANOCOBALAMIN 1000 MCG/ML INJ SOLN 393088 CYANOCOBALAM IN Inactive MAGNESIUM GLUCONATE 250 MG TABS 1 tab tid 4 MAGNESIUM GLUCONATE 250 MG TABS 533567 MAGNESIUM GLUCONATE Inactive LOMOTIL 2.5-0.025 MG TABS 1 tab by mouth prn 4 LOMOTIL 2.5- 0.025 MG TABS 2122353 DIPHENOXYLATE-ATROPINE Inactive FLORANEX PACK 1 pack three times daily, for bowel health FLORANEX PACK LACTOBACILLUS Inactive IRON 325 (65 FE) MG TABS 1 every other day IRON 325 (65 FE) MG TABS 873337 FERROUS SULFATE Inactive FLAGYL 500 MG TABS 1 pill by mouth three times daily, for diarrh ea FLAGYL 500 MG TABS 357138 METRONIDAZOLE Inactive BACTRIM DS 800-160 MG TABS 1 pill by mouth twice daily, for UTI BACTRIM DS 800-160 MG TABS 948840 SULFAMETHOXAZOLE-TRIM ETHOPRIM Inactive Advance Directives Directive Description [...] Panel - Chemistry sodium, serum 142 mmol/L 419-735 8819/04/20 carbon dioxide, venous blood 34.7 mmol/L 21.0-32 [...] ... - Chemistry sodium, serum 139 mmol/L 284-897 1436/10/20 carbon dioxide, venous blood 32.2 mmol/L 21.0-32 [...] - Chemi stry cholesterol, serum 200 mg/dL 441-489 4672/11/22 triglyceride, serum, fasting 129 mg/dL 30-200 HDL cholesterol, serum 56 mg/dL 32-96 LDL cholesterol, serum 118 mg/dL 0-130 calcium, serum 9.0 mg/dL 8.5-10.1 Lab Report: MicroAlb Random w/creat/6517 - Urinalysis microalbumin/total urine volume 8 mg/L Units converted. See lab report for original value. microalbumin/creatinine ratio, urine 15 MCG/MG CREAT mg/L <30 Encounters Code Encounter Date Provider Facility CPT-62019 Level 3 New Patient 16:22:01 [employer] Adam Yates MD [facility] CPT-16483 Level 4 Est. Patient 17:00:48 CDT [facility] CPT-11884 Level 3 Est. Patient 13:15:54 CDT [facility] CPT-97109 Level 3 Est. Patient 09:10:11 CDT [facility] CPT-79561 Level 4 Est. Patient 12:08:30 [employer]IL[employer]SERVATION PROFESSOR Hope cohn MD [facility] CPT-07966 Level 4 Est. Patient 19:08:42 [employer]IL[employer]SERV[employer] PROFESSOR Hope cohn MD [facility] CPT-21035 Level 4 Est. Patient 20:04:51 CDT Hope cohn MD [facility] CPT-63384 Level 3 New Patient 01:46:11 [employer] PROFESSOR Hope landers MD PhD [facility] Procedures Code Procedure Name Date Entry Date Standard Desc ription CPT-J0897 Prolia 60 mg 14:14:16 [employer] CPT-75852 Abx/Therapy Injection 14:14:15 [employer] CPT-42173 Lipid - LAB USE ONLY 10:01:52 [employer] PROFESSOR 2 CPT-52629 Calcium - LAB USE ONLY 10:01:51 [employer] CPT-76614 Venipuncture Draw Fee 10:01:51 [employer] CPT-LR Lesion Removal 16:22:01 [employer] CPT-39564 TSH - LAB USE ONLY 14:26:02 CDT CPT-92907 CMP - LAB USE ONLY 14:26:01 CDT CPT-82279 CBC with Diff - LAB USE ONLY 14:26:01 CDT 2 CPT-61565 Venipuncture Draw Fee 14:26:01 CDT CPT-93445 First Vx - Ix admin for Medicare patients 13:27:08 CDT CPT-99761 Fluzone High-Dose Intramuscular Suspension 11/26 13:27:08 CDT CPT-G0438 Initial Annual Wellness Exam 14:19:57 CD T CPT-G0009 Administration of Pneumococcal Vaccine 9 11:36:25 CDT CPT-26737 Prevnar 13 Intramuscular Suspension 1 1:36:25 CDT CPT-77906 Prevnar 13 Intramuscular Suspension 1 0:40:58 CDT CPT-J0897 Prolia 60 mg 10:37:16 CDT CPT-51260 Abx/Therapy Injection 10:37:16 CDT CPT-J0897 Prolia 60 mg 16:09:34 [employer] CPT-J0897 Prolia 60 mg 11:10:35 [employer] CPT-03055 Abx/Therapy Injection 11:10:35 [employer] CPT-000 Give Appropriate Flu Vaccine 17:01:15 [employer]OR 2 CPT-49901 Fluzone High Dose (65+) 15:03:08 [employer] 02/15 CPT-93730 Immunization Single Admin 15:03:08 [employer] PROFESSOR 2014 CPT-OV Office Visit 15:58:06 CDT CPT-J0897 Prolia 60 mg 08:45:38 CDT CPT-89075 Abx/Therapy Injection 08:45:38 CDT CPT-J3420 Vitamin B12 1000mcg (Cyanocobalamin) 09:26:20 [employer] CPT-38533 Abx/Therapy Injection 09:26:20 [employer] PROF[employer]OR CPT-J3420 Vitamin B12 1000mcg (Cyanocobalamin) 09:44:40 [employer] PROF[employer] CPT-76699 Abx/Therapy Injection 09:44:40 [employer] PROF[employer]OR CPT-J3420 Vitamin B12 1000mcg (Cyanocobalamin) 09:15:54 [employer] PROFESSOR CPT-64436 Abx/Therapy Injection 09:15:54 [employer] PROF[employer]OR CPT-J3420 Vitamin B12 1000mcg (Cyanocobalamin) 09:46:44 [employer] PROF[employer] CPT-17198 Abx/Therapy Injection 09:46:44 [employer] PROF[employer]OR CPT-J3420 Vitamin B12 1000mcg (Cyanocobalamin) 09:47:34 [employer] PROFESSOR CPT-37623 Abx/Therapy Injection 09:47:34 [employer] PROFESSOR CPT-J3420 Vitamin B12 1000mcg (Cyanocobalamin) 14:35:50 [employer] PROFESSOR CPT-J3420 Vitamin B12 1000mcg (Cyanocobalamin) 09:25:05 [employer] PROFESSOR CPT-60732 Abx/Therapy Injection 09:25:05 [employer] PROFESSOR CPT-G0008 Administration of Influenza Virus Vaccine 13:36:47 CDT CPT-72670 Fluzone High-Dose Intramuscular Suspension 11/15 13:36:47 CDT CPT-J0897 Prolia 60 mg 08:50:41 CDT CPT-88493 Abx/Therapy Injection 08:50:41 CDT CPT-46529 Bone Density 12:06:12 CDT CPT-26190 Bone Density 08:54:40 CDT CPT-OV Office Visit 15:37:02 CDT CPT-50495 Postop F/U Visit 15:47:49 CDT CPT-48649 Postop F/U Visit 15:21:02 CDT CPT-TCMH Transitional Care Mgmt-High 07:52:27 CDT 20 20/06/01 CPT-03345 Venipuncture Draw Fee 13:51:18 CDT CPT-69087 Venipuncture Draw Fee 10:14:55 [employer] CPT-55562 Venipuncture Draw Fee 13:39:45 [employer] PROF[employer]OR CPT-OV Office Visit 15:11:22 [employer] PROFESS[employer] CPT-96944 Venipuncture Draw Fee 09:20:49 [employer] PROF[employer] CPT-62436 Venipuncture Draw Fee 16:52:15 [employer] PROFESSOR CPT-00993 Venipuncture Draw Fee 10:37:24 [employer] PROFESSOR CPT-75975 Venipuncture Draw Fee 08:21:21 [employer] PROF[employer] CPT-33238 Venipuncture Draw Fee 08:30:20 [employer] PROF[employer] CPT-17023 Venipuncture Draw Fee 14:53:21 [employer] PROFESS[employer] CPT-54603 Venipuncture Draw Fee 09:40:56 [employer] PROF[employer]OR CPT-64097 Venipuncture Draw Fee 10:30:47 [employer] PROF[employer]OR CPT-93809 Venipuncture Draw Fee 10:46:17 [employer] PROFESSOR CPT-87419 Venipuncture Draw Fee 11:12:45 [employer] PROFESSOR CPT-93117 Venipuncture Draw Fee 09:53:33 [employer] PROFESSOR CPT-57408 Venipuncture Draw Fee 11:53:51 [employer] PROFESSOR CPT-36337 Venipuncture Draw Fee 10:33:50 [employer] PROFESSOR CPT-13351 Venipuncture Draw Fee 10:05:01 [employer] PROFESSOR CPT-07282 Venipuncture Draw Fee 14:32:52 [employer] PROFESSOR CPT-56137 Venipuncture Draw Fee 09:46:13 [employer] PROFESSOR CPT-49221 Venipuncture Draw Fee 11:34:27 [employer] PROFESSOR CPT-13232 Venipuncture Draw Fee 13:17:16 [employer] PROF[employer] CPT-10914 Venipuncture Draw Fee 12:05:39 CDT CPT-08636 Venipuncture Draw Fee 12:49:12 CDT CPT-46865 Venipuncture Draw Fee 12:37:18 CDT CPT-00950 Venipuncture Draw Fee 10:57:11 CDT CPT-32040 Venipuncture Draw Fee 13:47:40 CDT CPT-60328 Venipuncture Draw Fee 10:02:17 CDT CPT-78956 TB Tubersol 17:32:32 CDT CPT-OV Office Visit 16:21:53 CDT CPT-OV Office Visit 15:49:22 CDT CPT-OV Office Visit 17:16:31 CDT CPT-OV Office Visit 10:43:31 CDT
--- OUTSIDE RECORDS SUMMARY | 2019-02-09 12:42 | XMS REPORT | Clinical Summary ---
Author Author Admin, Florecita Munoz Organization [facility] [employer] Address Unknown Phone Unavailable Allergies, Adverse Reactions, Alerts Allergy Name Reaction Description Start Date Severity Status Pr ovider No Known Allergies Laura Elder NKDA Critical Active Kylie MEEK RN Conditions or Problems Problem Name Problem Code Onset Date Status Entry Date Provider Comment Standard Description Annotate HYPERLIPIDEMIA 272.4 Active Kina Joshua APRN Other and unspecified hyperlipidemia HYPERTENSION 401.9 Active Knia Joshua APRN Unspecified essential hypertension ABDOMINAL PAIN, [...] colon Sebaceous cyst, scalp 706.2 Resolved Kylie Lundoliver [employer] APPLICATOR Sebaceous cyst Cervical lymphadenopathy, anterior, left 785.6 Active Kylie Escalonapari [employer] APPLICATOR Enlargement of lymph nodes Need for prophylactic vaccination and inoculation against in fluenza V04.81 Active Citlaly Watkins RMA Need for prophylactic vaccination and inoculation against influenza Preventive health care V70.0 Active Kylie Holt [employer] R[employer] APPLICATOR Routine general medical examination at a health care facility ABDOMINAL PAIN, RIGHT LOWER QUADRANT ICD-789.03 Inactive Kina Joshua SHEET ROCK APPLICATOR ADENOCARCINOMA, COLON, 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 Dick Yates MD [...] scalp ICD-706.2 Inactive Tracy hi Yokum SHEET ROCK APPLICATOR Medication List Medication Instructions Start Date Stop Date Generic Name NDC Status Provider Patient Instruction VITAMIN D3 2000 UNIT ORAL CAPS Melaleuca-One daily CHOLECALCIFEROL 91125780913 Active Kylie Yokum SHEET ROCK APPLICATOR Active PROBIOTIC DAILY ORAL CAPS Take one daily PROBIOTIC PRODUCT 98139266803 Active Kylie Yokum SHEET ROCK APPLICATOR Active IRON 325 (65 FE) MG TABS 1 every other day FERR OUS SULFATE 83112554746 No Longer Active Kylie Yokum SHE[employer] ROCK APPLICATOR Active FLORANEX PACK 1 pack three times daily, for bowel health LACTOBACILLUS 82519026803 No Longer Active Kylie Polakum SHE[employer] ROCK APPLICATOR Active LOMOTIL 2.5-0.025 MG TABS 1 tab by mouth prn 4 DIPHENOXYLATE-ATROPINE 07938639710 No Longer Active Kylie Yokum SHEET ROCK APPLICATOR Active MAGNESIUM GLUCONATE 250 MG TABS 1 tab tid 4 MAGNESIUM GLUCONATE 18000251345 No Longer Active Kylie Yokum SHEET ROCK APPLICATOR Active CYANOCOBALAMIN 1000 MCG/ML INJ SOLN 1 injection every 2 weeks 20 20/01/03 CYANOCOBALAMIN 78187317214 No Longer Active Kylie Yokum SHE[employer] ROCK APPLICATOR Active ATENOLOL 25 MG ORAL TABS 1/2 pill by mouth daily, for headac hes, blood pressure ATENOLOL 25233602107 Active Kylie Yokum [employer] ROCK APPLICATOR Active PROPRANOLOL HCL 80 MG TABS 1 tab tue. and thur. 04/10 PROPRANOLOL HCL 74009649600 No Longer Active Hope Benavidez MD PhD A ctive VITAMIN D3 4000 IU 1 tab 3 times daily VITAMIN D3 4000 IU No Longer Active Hope Benavidez MD PhD Active BACTRIM DS 800-160 MG TABS 1 pill by mouth twice daily, for UTI SULFAMETHOXAZOLE-TRIMETHOPRIM 33892075546 No Longer Active A attila Benavidez MD PhD Active PROLIA 60 MG/ML SOLN 1 shot every 6 months for osteoprosis DENOSUMAB 76993309350 Active Hope Benavidez MD PhD Active CALCIUM + D + K 750-500-40 MG-UNT-MCG TABS 1 tab by mouth tw ice daily CALCIUM-VITAMIN D-VITAMIN K 54861799331 Active Hope landers MD PhD Active DAILY VALUE MULTIVITAMIN TABS 1 tab by mouth twice daily MULTIPLE VITAMIN 72377901696 Active Hope Benavidez MD PhD Active FISH OIL 306 MG CAPS 1 tab by mouth three times daily OMEGA-3 FATTY ACIDS 18657528375 Active Hope Benavidez MD PhD Active LUTEIN 10 MG TABS 1 tab daily LUTEIN 95563544398 Act cash Hope Benavidez MD PhD Active TRIAMTERENE-HCTZ 37.5-25 MG TABS 1 tab by mouth daily TRIAMTERENE-HCTZ 07750310115 Active Kylie Lundoliver ROMERON Active CYCLOBENZAPRINE HCL 10 MG TABS 1 tablet by mouth three times daily as needed for headaches CYCLOBENZAPRINE HCL 59056215991 No Longe r Active Adam Yates MD Active OMEPRAZOLE 20 MG CPDR 1 tablet by mouth daily for GERD OMEPRAZOLE 85493944877 No Longer Active Adam Yates MD A ctive ZOFRAN 8 MG TABS 1 tab by mouth every 12 hours prn 201 05/16/09 ONDANSETRON HCL 83239353048 No Longer Active Adam Yates MD Active PHENADOZ 25 MG SUPP 1 every 4 hrs. PRN PROMETHA ZINE HCL 60757677100 No Longer Active Adam Yates MD Active POTASSIUM CHLORIDE 20 MEQ PACK by mouth twice a day prn POTASSIUM CHLORIDE 84514478742 No Longer Active Adam Yates MD Active PROMETHAZINE HCL 25 MG TABS 1 Q. 4 hr. PRN PROM ETHAZINE HCL 91464831053 No Longer Active Adam Yates MD Active INNOPRAN XL 120 MG [id number] Take one by mouth daily 2 PROPRANOLOL HCL SR BEADS 07587063792 No Longer Active Adam Yates MD A ctive FLAGYL 500 MG TABS 1 pill by mouth three times daily, for diarrh ea METRONIDAZOLE 28677178733 No Longer Active Hope Benavidez MD PhD Active DYAZIDE 37.5-25 MG CAPS 1 qd TRIAMTERENE-HC TZ 54940305009 No Longer Active Hope Benavidez MD PhD Active PROZAC 20 MG CAPS 1 q d FLUOXETINE HCL 87563 823659 No Longer Active Hope Benavidez MD PhD Active SIMVASTATIN 40 MG TABS 1 qd SIMVASTATIN 004 97963836 No Longer Active Adam Yates MD Active MELOXICAM 15 MG TABS 1 qd MELOXICAM 0748950 2542 No Longer Active Adam Yates MD Active IMODIUM A-D 2 MG TABS 2 onset at diarrhea and prn. LOPERAMIDE HCL 97358246905 Active Hope Benavidez MD PhD Active EXCEDRIN EXTRA STRENGTH 250-250-65 MG TABS 1-2 q6h PRN headache 201 04/16/21 [id number] 05346871747 Active Hope Benavidez MD PhD Active FLAGYL 500 MG TABS 1 qid METRONIDAZOLE 94990 706520 No Longer Active Adam Yates MD Active LEVAQUIN 750 MG TABS 1 qd LEVOFLOXACIN 5486 5643602 No Longer Active Adam Yates MD Active ADULT ASPIRIN LOW STRENGTH 81 MG TBDP 1 qd A SPIRIN 23976521024 Active Hope Benavidez MD PhD Active LEVAQUIN 750 MG TABS 1 qd LEVAQUIN 750 MG T ABS 401757 LEVOFLOXACIN Inactive FLAGYL 500 MG TABS 1 qid FLAGYL 500 MG TABS 402557 METRONIDAZOLE Inactive MELOXICAM 15 MG TABS 1 qd MELOXICAM 15 MG T ABS 189795 MELOXICAM Inactive SIMVASTATIN 40 MG TABS 1 qd SIMVASTATIN 40 MG TABS 148671 SIMVASTATIN Inactive PROZAC 20 MG CAPS 1 q d PROZAC 20 MG CAPS 31 0385 FLUOXETINE HCL Inactive DYAZIDE 37.5-25 MG CAPS 1 qd DYAZIDE 37.5 -25 MG CAPS 619986 TRIAMTERENE-HCTZ Inactive INNOPRAN XL 120 MG [id number] Take one by mouth daily 2 INNOPRAN XL 120 MG [id number] PROPRANOLOL HCL SR BEADS Inactive PROMETHAZINE HCL 25 MG TABS 1 Q. 4 hr. PRN PROMETHAZINE HCL 25 MG TABS 833975 PROMETHAZINE HCL Inactive POTASSIUM CHLORIDE 20 MEQ PACK by mouth twice a day prn POTASSIUM CHLORIDE 20 MEQ PACK 390215 POTASSIUM CHLORIDE Inactive PHENADOZ 25 MG SUPP 1 every 4 hrs. PRN PHENADOZ 2 5 MG SUPP 555673 PROMETHAZINE HCL Inactive ZOFRAN 8 MG TABS 1 tab by mouth every 12 hours prn 201 05/16/09 ZOFRAN 8 MG TABS 656358 ONDANSETRON HCL Inactive OMEPRAZOLE 20 MG CPDR 1 tablet by mouth daily for GERD OMEPRAZOLE 20 MG CPDR 666138 OMEPRAZOLE Inactive CYCLOBENZAPRINE HCL 10 MG TABS 1 tablet by mouth three times daily as needed for headaches CYCLOBENZAPRINE HCL 10 MG TABS 804698 CYCLOBENZAPRINE HCL Inactive VITAMIN D3 4000 IU 1 tab 3 times daily VITAMIN D3 4000 IU Inactive PROPRANOLOL HCL 80 MG TABS 1 tab tue. and thur. 04/10 PROPRANOLOL HCL 80 MG TABS 659932 PROPRANOLOL HCL Inactive CYANOCOBALAMIN 1000 MCG/ML INJ SOLN 1 injection every 2 weeks 20 20/01/03 CYANOCOBALAMIN 1000 MCG/ML INJ SOLN 483340 CYANOCOBALAM IN Inactive MAGNESIUM GLUCONATE 250 MG TABS 1 tab tid 4 MAGNESIUM GLUCONATE 250 MG TABS 595907 MAGNESIUM GLUCONATE Inactive LOMOTIL 2.5-0.025 MG TABS 1 tab by mouth prn 4 LOMOTIL 2.5- 0.025 MG TABS 6820063 DIPHENOXYLATE-ATROPINE Inactive FLORANEX PACK 1 pack three times daily, for bowel health FLORANEX PACK LACTOBACILLUS Inactive IRON 325 (65 FE) MG TABS 1 every other day IRON 325 (65 FE) MG TABS 662061 FERROUS SULFATE Inactive FLAGYL 500 MG TABS 1 pill by mouth three times daily, for diarrh ea FLAGYL 500 MG TABS 280378 METRONIDAZOLE Inactive BACTRIM DS 800-160 MG TABS 1 pill by mouth twice daily, for UTI BACTRIM DS 800-160 MG TABS 383121 SULFAMETHOXAZOLE-TRIM ETHOPRIM Inactive Advance Directives Directive Description [...] Panel - Chemistry sodium, serum 142 mmol/L 519-955 7645/04/20 carbon dioxide, venous blood 34.7 mmol/L 21.0-32 .0 potassium, serum 3.5 mmol/L 3.5-5.2 chloride, serum 102 mmol/L 98-107 blood glucose 102 mg/dL 65-110 urea nitrogen, blood 24 mg/dL 7-18 creatinine, serum 1.37 mg/dL 0.55-1.30 alanine aminotransferase (SGPT), serum 72 U/L 12-78 aspartate aminotransferase (SGOT), serum 44 U/L 15-37 calcium, serum 9.0 mg/dL 8.5-10.1 bilirubin, serum, total 0.50 mg/dL 0.00-1.00 sodium, serum 138 mmol/L 170-966 1281/10/23 carbon dioxide, venous blood 29.5 mmol/L 21.0-32 [...] 11 .6-14.8 platelet count 189 10^3/MM^3 10*3/mm3 315-543 1028/04/20 leukocyte count, blood 5.9 10^3/MM^3 10*3/mm3 4.6-10.2 [...] 1.24 m[iU]/mL 0.36-3.74 cholesterol, serum 227 mg/dL 409-134 1684/10/23 triglyceride, serum, fasting 144 mg/dL 30-200 HDL cholesterol, serum 60 mg/dL 32-96 LDL cholesterol, serum 138 mg/dL 0-130 Lab Report: Lipid Panel, MICROALBUMIN, T hyroid Stimulating Hormone (L) - Lab microalbumin, urine 10 0-19 Encounters Code Encounter Date Provider Facility CPT-60270 Level 3 Est. Patient 13:15:54 CDT Kylie Lund [facility] CPT-21956 Level 3 Est. Patient 09:10:11 CDT Kylie Lund [facility] CPT-39387 Level 4 Est. Patient 12:08:30 CLINICAL ORTHOPTIST Hope cohn MD PhD [facility] CPT-21875 Level 4 Est. Patient 19:08:42 CLINICAL ORTHOPTIST Hope cohn MD [facility] CPT-47955 Level 4 Est. Patient 20:04:51 CDT Hope cohn MD PhD [facility] CPT-38507 Level 3 New Patient 01:46:11 CLINICAL ORTHOPTIST Hope landers MD PhD [facility] Procedures Code Procedure Name Date Entry Date Standard Desc ription CPT-G0009 Administration of Pneumococcal Vaccine 9 11:36:25 CDT CPT-18428 Prevnar 13 Intramuscular Suspension 1 1:36:25 CDT CPT-13574 Prevnar 13 Intramuscular Suspension 1 0:40:58 CDT CPT-J0897 Prolia 60 mg 10:37:16 CDT CPT-41113 Abx/Therapy Injection 10:37:16 CDT CPT-J0897 Prolia 60 mg 16:09:34 CLINICAL ORTHOPTIST CPT-J0897 Prolia 60 mg 11:10:35 CLINICAL ORTHOPTIST CPT-84271 Abx/Therapy Injection 11:10:35 CLINICAL ORTHOPTIST CPT-000 Give Appropriate Flu Vaccine 17:01:15 CLINICAL ORTHOPTIST 2 CPT-17161 Fluzone High Dose (65+) 15:03:08 CLINICAL ORTHOPTIST 02/15 CPT-94191 Immunization Single Admin 15:03:08 CLINICAL ORTHOPTIST 2014 CPT-OV Office Visit 15:58:06 CDT CPT-J0897 Prolia 60 mg 08:45:38 CDT CPT-00417 Abx/Therapy Injection 08:45:38 CDT CPT-J3420 Vitamin B12 1000mcg (Cyanocobalamin) 09:26:20 CLINICAL ORTHOPTIST CPT-13112 Abx/Therapy Injection 09:26:20 CLINICAL ORTHOPTIST CPT-J3420 Vitamin B12 1000mcg (Cyanocobalamin) 09:44:40 CLINICAL ORTHOPTIST CPT-48456 Abx/Therapy Injection 09:44:40 CLINICAL ORTHOPTIST CPT-J3420 Vitamin B12 1000mcg (Cyanocobalamin) 09:15:54 CLINICAL ORTHOPTIST CPT-42869 Abx/Therapy Injection 09:15:54 CLINICAL ORTHOPTIST CPT-J3420 Vitamin B12 1000mcg (Cyanocobalamin) 09:46:44 CLINICAL ORTHOPTIST CPT-84317 Abx/Therapy Injection 09:46:44 CLINICAL ORTHOPTIST CPT-J3420 Vitamin B12 1000mcg (Cyanocobalamin) 09:47:34 CLINICAL ORTHOPTIST CPT-55740 Abx/Therapy Injection 09:47:34 CLINICAL ORTHOPTIST CPT-J3420 Vitamin B12 1000mcg (Cyanocobalamin) 14:35:50 CLINICAL ORTHOPTIST CPT-J3420 Vitamin B12 1000mcg (Cyanocobalamin) 09:25:05 CLINICAL ORTHOPTIST CPT-63239 Abx/Therapy Injection 09:25:05 CLINICAL ORTHOPTIST CPT-G0008 Administration of Influenza Virus Vaccine 13:36:47 CDT CPT-62504 Fluzone High-Dose Intramuscular Suspension 11/15 13:36:47 CDT CPT-J0897 Prolia 60 mg 08:50:41 CDT CPT-09993 Abx/Therapy Injection 08:50:41 CDT CPT-54700 Bone Density 12:06:12 CDT CPT-30623 Bone Density 08:54:40 CDT CPT-OV Office Visit 15:37:02 CDT CPT-04209 Postop F/U Visit 15:47:49 CDT CPT-60889 Postop F/U Visit 15:21:02 CDT CPT-TCM Transitional Care Mgmt-High 07:52:27 CDT 20 20/06/01 CPT-87099 Venipuncture Draw Fee 13:51:18 CDT CPT-46575 Venipuncture Draw Fee 10:14:55 CLINICAL ORTHOPTIST CPT-61888 Venipuncture Draw Fee 13:39:45 CLINICAL ORTHOPTIST CPT-OV Office Visit 15:11:22 CLINICAL ORTHOPTIST CPT-99569 Venipuncture Draw Fee 09:20:49 CLINICAL ORTHOPTIST CPT-05696 Venipuncture Draw Fee 16:52:15 CLINICAL ORTHOPTIST CPT-12693 Venipuncture Draw Fee 10:37:24 CLINICAL ORTHOPTIST CPT-13546 Venipuncture Draw Fee 08:21:21 CLINICAL ORTHOPTIST CPT-29561 Venipuncture Draw Fee 08:30:20 CLINICAL ORTHOPTIST CPT-38551 Venipuncture Draw Fee 14:53:21 CLINICAL ORTHOPTIST CPT-69910 Venipuncture Draw Fee 09:40:56 CLINICAL ORTHOPTIST CPT-81017 Venipuncture Draw Fee 10:30:47 CLINICAL ORTHOPTIST CPT-78618 Venipuncture Draw Fee 10:46:17 CLINICAL ORTHOPTIST CPT-21362 Venipuncture Draw Fee 11:12:45 CLINICAL ORTHOPTIST CPT-64880 Venipuncture Draw Fee 09:53:33 CLINICAL ORTHOPTIST CPT-32074 Venipuncture Draw Fee 11:53:51 CLINICAL ORTHOPTIST CPT-04247 Venipuncture Draw Fee 10:33:50 CLINICAL ORTHOPTIST CPT-32081 Venipuncture Draw Fee 10:05:01 CLINICAL ORTHOPTIST CPT-49016 Venipuncture Draw Fee 14:32:52 CLINICAL ORTHOPTIST CPT-03357 Venipuncture Draw Fee 09:46:13 CLINICAL ORTHOPTIST CPT-08132 Venipuncture Draw Fee 11:34:27 CLINICAL ORTHOPTIST CPT-23721 Venipuncture Draw Fee 13:17:16 CLINICAL ORTHOPTIST CPT-82329 Venipuncture Draw Fee 12:05:39 CDT CPT-67919 Venipuncture Draw Fee 12:49:12 CDT CPT-28194 Venipuncture Draw Fee 12:37:18 CDT CPT-34458 Venipuncture Draw Fee 10:57:11 CDT CPT-46682 Venipuncture Draw Fee 13:47:40 CDT CPT-92835 Venipuncture Draw Fee 10:02:17 CDT CPT-13349 TB Tubersol 17:32:32 CDT CPT-OV Office Visit 16:21:53 CDT CPT-OV Office Visit 15:49:22 CDT CPT-OV Office Visit 17:16:31 CDT CPT-OV Office Visit 10:43:31 CDT
--- OUTSIDE RECORDS SUMMARY | 2019-02-09 12:43 | XMS REPORT | Clinical Summary ---
Author Author Renaldo, Florecita Munoz Organization [facility] [employer] [facility] Address Unknown Phone Unavailable Allergies, Adverse Reactions, [...] neoplasm of ascending colon Hyperkalemia 276.7 Resolved Hoep Benavidez MD PhD Hyperpotassemia GERD 530.81 Resolved Kylie Yokum PTA Esophageal reflux Health maintenance exam V70.0 Resolved Adolfo Yates MD Routine general medical examination at a health care facility Anemia 285.9 Resolved Kylie Yanet PTA Anemia, unspecified Personal history of malignant neoplasm of large intestine V10.05 Active Adam Yates MD Personal history of malignant neoplasm of large intestine Hypomagnesemia 275.2 Resolved Kylie Yanet PTA Disorders of magnesium metabolism Weakness 780.79 Resolved [...] Sebaceous cyst, scalp 706.2 Resolved Kylie Yokum PTA Sebaceous cyst Cervical lymphadenopathy, anterior, left 785.6 Resolv ed Kylie Yokum PTA Enlargement of lymph nodes Need for prophylactic vaccination and inoculation against in fluenza V04.81 Resolved Adam Yates MD Need for prophylactic vaccination and inoculation against influenza Preventive health care V70.0 Active Kylie Yokum PTA Routine general medical examination at a health care facility Thyroid nodule, left 241.0 Active Kylie Yokum A PRN Nontoxic uninodular goiter Screening mammogram V76.12 Active Kylie Yokum AP RN Other screening mammogram Mandy 706.2 Resolved Kylie Yokum PTA Sebaceous cyst Colon cancer, ascending 153.6 Resolved Kylie Yok um PTA Malignant neoplasm of ascending colon Foot pain, left 729.5 Active Sulema Naff DIE HOLDER Pain in limb Splinter 919.6 Active Kylie Yokum PTA Superficial foreign body (splinter) of other, multiple, and unspecified sites, without major open wound and without mention of infection Rash 782.1 Active Kylie Yokum PTA R aurora and other nonspecific skin eruption Cyst 706.2 Active Kylie Yokum PTA S ebaceous cyst ABDOMINAL PAIN, RIGHT LOWER QUADRANT ICD-789.03 Inactive Kina Joshua PTA ABDOMINAL PAIN, GENERALIZED ICD-789.07 Inactive Hope Benavidez MD PhD FEVER UNSPECIFIED ICD-780.60 Inactive Hope cohn MD PhD UNSPECIFIED VENOUS INSUFFICIENCY ICD-459.81 [place] ctive Adam Yates MD ADENOCARCINOMA, 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 Inac tive Hope Benavidez MD PhD Hyperkalemia ICD-276.7 Inactive Hope Benavidez MD PhD ADENOCARCINOMA, COLON, 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 Dick Yates MD Health maintenance exam ICD-V70.0 Bam Yates MD Anemia ICD-285.9 Inactive Kylie Yokum PTA 07/24 Hypomagnesemia ICD-275.2 Inactive Kylie Yokum PTA GERD ICD-530.81 Inactive Kylie Yokum PTA 2015 Aftercare following surgery of the teeth,oral cavity a nd digestive system, NEC ICD-V58.75 Inactive Adam Yates MD Asymptomatic postmenopausal status (age-related) (natural) I CD-V49.81 Inactive Hope Benavidez MD PhD Weakness ICD-780.79 Inactive Hope Benavidez MD P hD Dysuria ICD-788.1 Inactive Hope Benavidez MD PhD 201 05/19/01 Adenocarcinoma, ascending colon ICD-153.6 Inac abdelrahman Yates MD Sebaceous cyst, scalp ICD-706.2 Inactive Tracy Holt PTA Cervical lymphadenopathy, anterior, left ICD-785.6 Inactive Kylie Holt PTA Need for prophylactic vaccination and inoculation against in fluenza ICD-V04.81 Inactive Adam Yates MD Mandy ICD-706.2 Inactive Kylie Holt PTA 07/20 Colon cancer, ascending ICD-153.6 Inactive Bravo solimani Yanet PTA Diarrhea, functional ICD-564.5 Inactive Selena Yates MD Colon cancer ICD-153.9 Inactive Adam luna MD Medication List Medication Instructions Start Date Stop Date Generic Name NDC Status Provider Patient Instruction VOLTAREN 1 % TRANSDERMAL GEL apply q 6-8 hour to left arm as needed for pain DICLOFENAC SODIUM 63419730459 Active Kylie Holt APRN Active COQ10 100 MG ORAL CAPSULE 1 daily COENZYME Q10 101364 04642 Active LETY Nation Active VITAMIN D3 2000 UNIT ORAL CAPSULE Melaleuca-One daily CHOLECALCIFEROL 90254290030 Active Kylie Holt APRN Active PROBIOTIC DAILY ORAL CAPSULE Take one daily PROBIO TIC PRODUCT 31397480765 Active Kylie Holt APRN Active IRON 325 (65 Fe) MG ORAL TABLET 1 every other day FERROUS SULFATE 03029916079 No Longer Active Kylie Holt APRN Active FLORANEX ORAL PACKET 1 pack three times daily, for bowel health LACTOBACILLUS 73730640211 No Longer Active Kylie Holt APRN Active LOMOTIL 2.5-0.025 MG ORAL TABLET 1 tab by mouth prn 23/10/23 DIPHENOXYLATE-ATROPINE 87817723862 No Longer Active Kylie Holt APRN Active MAGNESIUM GLUCONATE 250 MG ORAL TABLET 1 tab tid 23/10/23 MAGNESIUM GLUCONATE 18503971118 No Longer Active Kylie Yokum PTA Active CYANOCOBALAMIN 1000 MCG/ML INJECTION SOLUTION 1 injection ev ruben 2 weeks CYANOCOBALAMIN 51814110287 No Longer Active Kylie Lund um PTA Active ATENOLOL 25 MG ORAL TABLET 1/2 pill by mouth daily, fo r headaches, blood pressure ATENOLOL 64462388911 Active Kylie Yokum PTA Active PROPRANOLOL HCL 80 MG ORAL TABLET 1 tab tue. and thur. PROPRANOLOL HCL 51519112986 No Longer Active Hope Benavidez MD PhD A ctive VITAMIN D3 4000 IU 1 tab 3 times daily VITAMIN D3 4000 IU No Longer Active Hope Benavidez MD PhD Active BACTRIM DS 800-160 MG ORAL TABLET 1 pill by mouth twice claudio y, for UTI SULFAMETHOXAZOLE-TRIMETHOPRIM 03325933766 No Longer Active Hope Benavidez MD PhD Active PROLIA 60 MG/ML SUBCUTANEOUS SOLUTION 1 shot every 6 months for osteoprosis DENOSUMAB 19811598493 Active Hope Benavidez MD PhD Active CALCIUM + D + K 750-500-40 MG-UNT-MCG ORAL TABLET 1 tab by m out twice daily CALCIUM-VITAMIN D-VITAMIN K 94170248384 Active Hope valdez MD PhD Active DAILY VALUE MULTIVITAMIN ORAL TABLET 1 tab by mouth twice daily 201 05/16/14 MULTIPLE VITAMIN 63526851537 Active Hope Benavidez MD PhD Acti ve FISH OIL 306 MG CAPS 1 tab by mouth three times daily OMEGA-3 FATTY ACIDS 92373936555 Active Hope Benavidez MD PhD Active LUTEIN 10 MG ORAL TABLET 1 tab daily LUTEIN 10363322 408 Active Hope Benavidez MD PhD Active TRIAMTERENE-HCTZ 37.5-25 MG ORAL TABLET 1 tab by mouth daily 10/22 TRIAMTERENE-HCTZ 60765557674 Active LETY Rossi Activ e CYCLOBENZAPRINE HCL 10 MG ORAL TABLET 1 tablet by mout h three times daily as needed for headaches CYCLOBENZAPRINE HCL 76902294089 No Longer Active Adam Yates MD Active OMEPRAZOLE 20 MG ORAL CAPSULE DELAYED RELEASE 1 tablet by mo [facility] daily for GERD OMEPRAZOLE 76398917099 No Longer Active Adam Yates MD Active ZOFRAN 8 MG ORAL TABLET 1 tab by mouth every 12 hours prn 4 ONDANSETRON HCL 19538840266 No Longer Active Adam Yates MD Active PHENADOZ 25 MG RECTAL SUPPOSITORY 1 every 4 hrs. PRN 2 PROMETHAZINE HCL 12675268050 No Longer Active Adam Yates MD A ctive POTASSIUM CHLORIDE 20 MEQ ORAL PACKET by mouth twice a day prn 2 POTASSIUM CHLORIDE 48288105903 No Longer Active Adam Carpenter MD Active PROMETHAZINE HCL 25 MG ORAL TABLET 1 Q. 4 hr. PRN PROMETHAZINE HCL 76247649136 No Longer Active Adam Yates MD Active INNOPRAN XL 120 MG ORAL CAPSULE EXTENDED RELEASE 24 HO UR Take one by mouth daily PROPRANOLOL HCL SR BEADS 86672700407 No Longer Active Adam Yates MD Active FLAGYL 500 MG ORAL TABLET 1 pill by mouth three times daily, for diarrhea METRONIDAZOLE 17451580262 No Longer Active Hope landers MD PhD Active DYAZIDE 37.5-25 MG ORAL CAPSULE 1 qd TRIA MTERENE-HCTZ 17341538031 No Longer Active Hope Benavidez MD PhD Active PROZAC 20 MG ORAL CAPSULE 1 q d FLUOXETINE HCL 40835807001 No Longer Active Hope Benavidez MD PhD Active SIMVASTATIN 40 MG ORAL TABLET 1 qd SIMVAS TATIN 42796151266 No Longer Active Adam Yates MD Active MELOXICAM 15 MG ORAL TABLET 1 qd MELOXICAM 11638753732 No Longer Active Adam Yates MD Active IMODIUM A-D 2 MG ORAL TABLET 2 onset at diarrhea and prn. LOPERAMIDE HCL 11017349472 Active Hope Benavidez MD PhD Active EXCEDRIN EXTRA STRENGTH 250-250-65 MG ORAL TABLET 1-2 q6h TN N headache OQGANLN-NAWABOUMIMGZB-PSMXTKME 25147443176 Active Hope Benavidez MD PhD Active FLAGYL 500 MG ORAL TABLET 1 qid METRONIDAZOL E 51746615231 No Longer Active Adam Yates MD Active LEVAQUIN 750 MG ORAL TABLET 1 qd LEVOFLOXAC IN 06373246555 No Longer Active Adam Yates MD Active ADULT ASPIRIN LOW STRENGTH 81 MG ORAL TABLET DISINTEGRATING 1 qd ASPIRIN 89350272878 Active Hope Benavidez MD PhD Active LEVAQUIN 750 MG ORAL TABLET 1 qd LEVAQUIN 750 MG ORAL TABLET 968249 LEVOFLOXACIN Inactive FLAGYL 500 MG ORAL TABLET 1 qid FLAGYL 500 MG ORAL TABLET 789627 METRONIDAZOLE Inactive MELOXICAM 15 MG ORAL TABLET 1 qd MELOXICAM 15 MG ORAL TABLET 644010 MELOXICAM Inactive SIMVASTATIN 40 MG ORAL TABLET 1 qd SIMVASTATIN 40 MG ORAL TABLET 978330 SIMVASTATIN Inactive PROZAC 20 MG ORAL CAPSULE 1 q d PROZAC 20 MG ORAL CAPSULE 895094 FLUOXETINE HCL Inactive DYAZIDE 37.5-25 MG ORAL CAPSULE 1 qd 5 DYAZIDE 37.5-25 MG ORAL CAPSULE 661795 TRIAMTERENE-HCTZ Inactive INNOPRAN XL 120 MG ORAL CAPSULE EXTENDED RELEASE 24 HO UR Take one by mouth daily INNOPRAN XL 120 MG ORAL CAPSULE EXTENDED RELEASE 24 HOUR PROPRANOLOL HCL SR BEADS Inactive PROMETHAZINE HCL 25 MG ORAL TABLET 1 Q. 4 hr. PRN 2013 PROMETHAZINE HCL 25 MG ORAL TABLET 685204 PROMETHAZINE HCL Inactive POTASSIUM CHLORIDE 20 MEQ ORAL PACKET by mouth twice a day prn 2 POTASSIUM CHLORIDE 20 MEQ ORAL PACKET 9134571 POTASSIUM CHLORIDE Inactive PHENADOZ 25 MG RECTAL SUPPOSITORY 1 every 4 hrs. PRN 2 014/09/10 PHENADOZ 25 MG RECTAL SUPPOSITORY 520720 PROMETHAZINE HCL Inactive ZOFRAN 8 MG ORAL TABLET 1 tab by mouth every 12 hours prn 4 ZOFRAN 8 MG ORAL TABLET 450941 ONDANSETRON HCL Inactive OMEPRAZOLE 20 MG ORAL CAPSULE DELAYED RELEASE 1 tablet by mo uth daily for GERD OMEPRAZOLE 20 MG ORAL CAPSULE DELAYED RELEASE 19 8051 OMEPRAZOLE Inactive CYCLOBENZAPRINE HCL 10 MG ORAL TABLET 1 tablet by mout h three times daily as needed for headaches CYCLOBENZAPRINE HCL 10 MG ORAL TABLET 288535 CYCLOBENZAPRINE HCL Inactive VITAMIN D3 4000 IU 1 tab 3 times daily VITAMIN D3 4000 IU Inactive PROPRANOLOL HCL 80 MG ORAL TABLET 1 tab tue. and thur. PROPRANOLOL HCL 80 MG ORAL TABLET 062835 PROPRANOLOL HCL Inacti ve CYANOCOBALAMIN 1000 MCG/ML INJECTION SOLUTION 1 injection ev ruben 2 weeks CYANOCOBALAMIN 1000 MCG/ML INJECTION SOLUTION 30 9594 CYANOCOBALAMIN Inactive MAGNESIUM GLUCONATE 250 MG ORAL TABLET 1 tab tid 20 23/10/23 MAGNESIUM GLUCONATE 250 MG ORAL TABLET 291542 MAGNESIUM GLUCONATE Inactive LOMOTIL 2.5-0.025 MG ORAL TABLET 1 tab by mouth prn 20 23/10/23 LOMOTIL 2.5-0.025 MG ORAL TABLET 2470599 DIPHENOXYLATE-ATROPINE Inac tive FLORANEX ORAL PACKET 1 pack three times daily, for bowel health FLORANEX ORAL PACKET LACTOBACILLUS Inactive IRON 325 (65 Fe) MG ORAL TABLET 1 every other day 2015 IRON 325 (65 Fe) MG ORAL TABLET 324894 FERROUS SULFATE Inactive FLAGYL 500 MG ORAL TABLET 1 pill by mouth three times daily, for diarrhea FLAGYL 500 MG ORAL TABLET 037827 METRONIDAZOLE I nactive BACTRIM DS 800-160 MG ORAL TABLET 1 pill by mouth twice claudio y, for UTI BACTRIM DS 800-160 MG ORAL TABLET 945289 SULFAMETHOXAZOLE-TRIMETHOPRIM Inactive Advance Directives Directive Description Start [...] Stimulating Hormone (L), Free ... - Chemistry blood glucose 80 mg/dL 65-110 calcium, serum 9.1 mg/dL 8.5-10.1 urea nitrogen, blood 23 mg/dL 7-18 creatinine, serum 1.09 mg/dL 0.60-1.30 TSH 1.11 m[iU]/mL 0.36-3.74 thyroxine, serum, free 0.85 ng/dL 0.59-1.17 albumin/creatinine ratio, urine <30 mg/g Normal mg/g m g/g{creat} 0-29 carbon dioxide, venous blood 32.5 mmol/L 21.0-32 .0 chloride, serum 101 mmol/L 98-107 potassium, serum 4.0 mmol/L 3.5-5.2 sodium, serum 138 mmol/L 136-145 Lab Report: Basic Metabolic Panel, Thyro id [...] 11 .0-15.0 platelet count 157 THOUSAND/UL 10*3/mm3 128-781 2293/04/20 mean platelet volume 8.9 fL 7.5-12.5 Lab Report: CEA - Serology carcinoembryonic antigen 0.9 ng/mL Encounters Code Encounter Date Provider Facility CPT-20652 Level 3 Est. Patient 08:15:24 BOAT WRAPPER Kylie Lund [facility] CPT-62360 Level 2 Est. Patient 14:27:16 BOAT WRAPPER [facility]yl[facility] CPT-51341 Level 3 Est. Patient 17:54:48 CDT [facility] CPT-89301 Level 3 Est. Patient 16:26:30 CDT Kina blackmon [facility] CPT-25845 Level 3 New Patient 16:22:01 BOAT WRAPPER Adam Yates MD [facility] CPT-93837 Level 4 Est. Patient 17:00:48 CDT Kylie Lund [facility] CPT-33193 Level 3 Est. Patient 13:15:54 CDT Kylie Lund [facility] CPT-30413 Level 3 Est. Patient 09:10:11 CDT Kylie Lund [facility] CPT-67844 Level 4 Est. Patient 12:08:30 BOAT WRAPPER Hope cohn MD [facility] CPT-49632 Level 4 Est. Patient 19:08:42 BOAT WRAPPER Hope cohn MD PhD [facility] CPT-58129 Level 4 Est. Patient 20:04:51 CDT Hope cohn MD PhD [facility] CPT-78554 Level 3 New Patient 01:46:11 BOAT WRAPPER Hope landers MD PhD [facility] Procedures Code Procedure Name Date Entry Date Standard Desc ription CPT-J0897 Prolia 60 mg 15:46:54 BOAT WRAPPER CPT-54852 Abx/Therapy Injection 15:46:54 BOAT WRAPPER CPT-56999 Microalbumin - LAB USE ONLY 09:41:32 BOAT WRAPPER 20 23/01/15 CPT-85688 Free T4 - LAB USE ONLY 09:41:32 BOAT WRAPPER CPT-49079 TSH - LAB USE ONLY 09:41:32 BOAT WRAPPER CPT-63149 BMP - LAB USE ONLY 09:41:32 BOAT WRAPPER CPT-73574 Venipuncture Draw Fee 09:41:32 BOAT WRAPPER CPT-10257 First Vx - Ix admin for Medicare patients 11:19:30 CDT CPT-35277 Fluzone High-Dose Intramuscular Suspension 12/07 11:19:30 CDT CPT-J0897 Prolia 60 mg 14:55:42 CDT CPT-21836 Abx/Therapy Injection 14:55:42 CDT CPT-96899 Bone Density - XRAY USE ONLY 10:27:12 CDT 2 CPT-G0439 [facility] Annual Wellness Exam 17:54:53 CDT CPT-80719 Foot, left, comp min 3V - XRAY USE ONLY 12:22:49 CDT CPT-G0009 Administration of Pneumococcal Vaccine 3 12:18:00 CDT CPT-64313 Pneumovax 23 Injection Injectable 25 MCG /0.5ML 12:18:00 CDT CPT-J0897 Prolia 60 mg 14:14:16 BOAT WRAPPER CPT-22761 Abx/Therapy Injection 14:14:15 BOAT WRAPPER CPT-11419 Lipid - LAB USE ONLY 10:01:52 BOAT WRAPPER 2 CPT-41242 Calcium - LAB USE ONLY 10:01:51 BOAT WRAPPER CPT-27410 Venipuncture Draw Fee 10:01:51 BOAT WRAPPER CPT-LR Lesion Removal 16:22:01 BOAT WRAPPER CPT-90691 TSH - LAB USE ONLY 14:26:02 CDT CPT-07060 CMP - LAB USE ONLY 14:26:01 CDT CPT-69989 CBC with Diff - LAB USE ONLY 14:26:01 CDT 2 CPT-03740 Venipuncture Draw Fee 14:26:01 CDT CPT-36210 First Vx - Ix admin for Medicare patients 13:27:08 CDT CPT-16658 Fluzone High-Dose Intramuscular Suspension 11/26 13:27:08 CDT CPT-G0438 Initial Annual Wellness Exam 14:19:57 CD T CPT-G0009 Administration of Pneumococcal Vaccine 9 11:36:25 CDT CPT-42626 Prevnar 13 Intramuscular Suspension 1 1:36:25 CDT CPT-52429 Prevnar 13 Intramuscular Suspension 1 0:40:58 CDT CPT-J0897 Prolia 60 mg 10:37:16 CDT CPT-91088 Abx/Therapy Injection 10:37:16 CDT CPT-J0897 Prolia 60 mg 16:09:34 BOAT WRAPPER CPT-J0897 Prolia 60 mg 11:10:35 BOAT WRAPPER CPT-23786 Abx/Therapy Injection 11:10:35 BOAT WRAPPER CPT-000 Give Appropriate Flu Vaccine 17:01:15 BOAT WRAPPER 2 CPT-56685 Fluzone High Dose (65+) 15:03:08 BOAT WRAPPER 02/15 CPT-41349 Immunization Single Admin 15:03:08 BOAT WRAPPER 2014 CPT-OV Office Visit 15:58:06 CDT CPT-J0897 Prolia 60 mg 08:45:38 CDT CPT-78765 Abx/Therapy Injection 08:45:38 CDT CPT-J3420 Vitamin B12 1000mcg (Cyanocobalamin) 09:26:20 BOAT WRAPPER CPT-15543 Abx/Therapy Injection 09:26:20 BOAT WRAPPER CPT-J3420 Vitamin B12 1000mcg (Cyanocobalamin) 09:44:40 BOAT WRAPPER CPT-85264 Abx/Therapy Injection 09:44:40 BOAT WRAPPER CPT-J3420 Vitamin B12 1000mcg (Cyanocobalamin) 09:15:54 BOAT WRAPPER CPT-79608 Abx/Therapy Injection 09:15:54 BOAT WRAPPER CPT-J3420 Vitamin B12 1000mcg (Cyanocobalamin) 09:46:44 BOAT WRAPPER CPT-04941 Abx/Therapy Injection 09:46:44 BOAT WRAPPER CPT-J3420 Vitamin B12 1000mcg (Cyanocobalamin) 09:47:34 BOAT WRAPPER CPT-55258 Abx/Therapy Injection 09:47:34 BOAT WRAPPER CPT-J3420 Vitamin B12 1000mcg (Cyanocobalamin) 14:35:50 BOAT WRAPPER CPT-J3420 Vitamin B12 1000mcg (Cyanocobalamin) 09:25:05 BOAT WRAPPER CPT-89808 Abx/Therapy Injection 09:25:05 BOAT WRAPPER CPT-G0008 Administration of Influenza Virus Vaccine 13:36:47 CDT CPT-20856 Fluzone High-Dose Intramuscular Suspension 11/15 13:36:47 CDT CPT-J0897 Prolia 60 mg 08:50:41 CDT CPT-59422 Abx/Therapy Injection 08:50:41 CDT CPT-58183 Bone Density 12:06:12 CDT CPT-60590 Bone Density 08:54:40 CDT CPT-OV Office Visit 15:37:02 CDT CPT-59958 Postop F/U Visit 15:47:49 CDT CPT-93242 Postop F/U Visit 15:21:02 CDT [facility] Transitional Care Mgmt-High 07:52:27 CDT 20 20/06/01 CPT-01217 Venipuncture Draw Fee 13:51:18 CDT CPT-58217 Venipuncture Draw Fee 10:14:55 BOAT WRAPPER CPT-51125 Venipuncture Draw Fee 13:39:45 BOAT WRAPPER CPT-OV Office Visit 15:11:22 BOAT WRAPPER CPT-13011 Venipuncture Draw Fee 09:20:49 BOAT WRAPPER CPT-55046 Venipuncture Draw Fee 16:52:15 BOAT WRAPPER CPT-12744 Venipuncture Draw Fee 10:37:24 BOAT WRAPPER CPT-06630 Venipuncture Draw Fee 08:21:21 BOAT WRAPPER CPT-69589 Venipuncture Draw Fee 08:30:20 BOAT WRAPPER CPT-93315 Venipuncture Draw Fee 14:53:21 BOAT WRAPPER CPT-83549 Venipuncture Draw Fee 09:40:56 BOAT WRAPPER CPT-07482 Venipuncture Draw Fee 10:30:47 BOAT WRAPPER CPT-72541 Venipuncture Draw Fee 10:46:17 BOAT WRAPPER CPT-21919 Venipuncture Draw Fee 11:12:45 BOAT WRAPPER CPT-21808 Venipuncture Draw Fee 09:53:33 BOAT WRAPPER CPT-63497 Venipuncture Draw Fee 11:53:51 BOAT WRAPPER CPT-48196 Venipuncture Draw Fee 10:33:50 BOAT WRAPPER CPT-43099 Venipuncture Draw Fee 10:05:01 BOAT WRAPPER CPT-51256 Venipuncture Draw Fee 14:32:52 BOAT WRAPPER CPT-22678 Venipuncture Draw Fee 09:46:13 BOAT WRAPPER CPT-80469 Venipuncture Draw Fee 11:34:27 BOAT WRAPPER CPT-45799 Venipuncture Draw Fee 13:17:16 BOAT WRAPPER CPT-38434 Venipuncture Draw Fee 12:05:39 CDT CPT-51624 Venipuncture Draw Fee 12:49:12 CDT CPT-73851 Venipuncture Draw Fee 12:37:18 CDT CPT-99423 Venipuncture Draw Fee 10:57:11 CDT CPT-57772 Venipuncture Draw Fee 13:47:40 CDT CPT-06075 Venipuncture Draw Fee 10:02:17 CDT CPT-55206 TB Tubersol 17:32:32 CDT CPT-OV Office Visit 16:21:53 CDT CPT-OV Office Visit 15:49:22 CDT CPT-OV Office Visit 17:16:31 CDT CPT-OV Office Visit 10:43:31 CDT
--- OUTSIDE RECORDS SUMMARY | 2019-02-09 12:43 | XMS REPORT | Clinical Summary ---
Author Author Admin, Florecita Munoz Organization [facility] [employer] Address Unknown Phone Unavailable Allergies, Adverse Reactions, [...] MD Functional diarrhea Osteoporosis 733.00 Active Hope Benvaidez MD PhD Osteoporosis, unspecified Dysuria 788.1 Resolved [...] Sebaceous cyst, scalp 706.2 Resolved Kylie Holt [employer] Sebaceous cyst Cervical lymphadenopathy, anterior, left 785.6 Resolv ed Kylie Holt [employer] Enlargement of lymph nodes Need for prophylactic vaccination and inoculation against in fluenza V04.81 Resolved Adam Yates MD Need for prophylactic vaccination and inoculation against influenza Preventive health care V70.0 Active Kylie Holt [employer] Routine general medical examination at a health care facility Thyroid nodule, left 241.0 Active Kylie Holt A PRN Nontoxic uninodular goiter Screening mammogram V76.12 Active Kylie Holt AP RN Other screening mammogram Mandy 706.2 Active Adam Yates MD Sebaceous cyst Colon cancer, ascending 153.6 Active Kelsy F aux RMA Malignant neoplasm of ascending colon ABDOMINAL PAIN, RIGHT LOWER QUADRANT ICD-789.03 Inactive Kina Joshua [employer] ADENOCARCINOMA, COLON, 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 Dick Yates MD ABDOMINAL PAIN, GENERALIZED ICD-789.07 Inactive Hope Benavidez MD PhD FEVER UNSPECIFIED ICD-780.60 Inactive Hope cohn MD PhD UNSPECIFIED VENOUS INSUFFICIENCY ICD-459.81 Elda ctive Adam Yates MD ADENOCARCINOMA, 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 Inac tive Hope Benavidez MD PhD Hyperkalemia ICD-276.7 Inactive Hope Benavidez MD PhD GERD ICD-530.81 Inactive Kylie Holt [employer] 2015 Health maintenance exam ICD-V70.0 Inactive Adolfo Yates MD Anemia ICD-285.9 Inactive Kylie Holt [employer] 07/24 Weakness ICD-780.79 Inactive Hope Benavidez MD [...] Sebaceous cyst, scalp ICD-706.2 Inactive Tracy Holt [employer] Cervical lymphadenopathy, anterior, left ICD-785.6 Inactive Kylie Holt [employer] Need for prophylactic vaccination and inoculation against in fluenza ICD-V04.81 Inactive Adam Yates MD Medication List Medication Instructions Start Date Stop Date Generic Name NDC Status Provider Patient Instruction COQ10 100 MG ORAL CAPS 1 daily COENZYME Q10 [id number] 20 Active [place] Active VITAMIN D3 2000 UNIT ORAL CAPS Melaleuca-One daily CHOLECALCIFEROL 85126726175 Active Kylie Holt [employer] Active PROBIOTIC DAILY ORAL CAPS Take one daily PROBIOTIC PRODUCT 01047298565 Active Kylie Lundum [employer] Active IRON 325 (65 FE) MG TABS 1 every other day FERR OUS SULFATE 44235238654 No Longer Active Kylie Lundum [employer] Active FLORANEX PACK 1 pack three times daily, for bowel health LACTOBACILLUS 30072034960 No Longer Active Kylie Holt [employer] Active LOMOTIL 2.5-0.025 MG TABS 1 tab by mouth prn 4 DIPHENOXYLATE-ATROPINE 84609018628 No Longer Active Kylie Lundum [employer] Active MAGNESIUM GLUCONATE 250 MG TABS 1 tab tid 4 MAGNESIUM GLUCONATE 37231834981 No Longer Active Kylie Holt [employer] Active CYANOCOBALAMIN 1000 MCG/ML INJ SOLN 1 injection every 2 weeks 20 20/01/03 CYANOCOBALAMIN 02366933412 No Longer Active Kylie Lundum [employer] Active ATENOLOL 25 MG ORAL TABS 1/2 pill by mouth daily, for headac hes, blood pressure ATENOLOL 10583295682 Active Kylie Lundum [employer] Active PROPRANOLOL HCL 80 MG TABS 1 tab tue. and thur. 04/10 PROPRANOLOL HCL 58716529932 No Longer Active Hope Benavidez MD PhD A ctive VITAMIN D3 4000 IU 1 tab 3 times daily VITAMIN D3 4000 IU No Longer Active Hope Benavidez MD PhD Active BACTRIM DS 800-160 MG TABS 1 pill by mouth twice daily, for UTI SULFAMETHOXAZOLE-TRIMETHOPRIM 10032657319 No Longer Active A attila Benavidez MD PhD Active PROLIA 60 MG/ML SOLN 1 shot every 6 months for osteoprosis DENOSUMAB 88588149943 Active Hope Benavidez MD PhD Active CALCIUM + D + K 750-500-40 MG-UNT-MCG TABS 1 tab by mouth tw ice daily CALCIUM-VITAMIN D-VITAMIN K 57356638141 Active Hope landers MD PhD Active DAILY VALUE MULTIVITAMIN TABS 1 tab by mouth twice daily MULTIPLE VITAMIN 22747534145 Active Hope Benavidez MD PhD Active FISH OIL 306 MG CAPS 1 tab by mouth three times daily OMEGA-3 FATTY ACIDS 40273577111 Active Hope Benavidez MD PhD Active LUTEIN 10 MG TABS 1 tab daily LUTEIN 81650452288 Act cash Hope Benavidez MD PhD Active TRIAMTERENE-HCTZ 37.5-25 MG TABS 1 tab by mouth daily TRIAMTERENE-HCTZ 43221132132 Active Kylie Holt [employer] Active CYCLOBENZAPRINE HCL 10 MG TABS 1 tablet by mouth three times daily as needed for headaches CYCLOBENZAPRINE HCL 88490514854 No Longe r Active Adam Yates MD Active OMEPRAZOLE 20 MG CPDR 1 tablet by mouth daily for GERD OMEPRAZOLE 81308500777 No Longer Active Adam Yates MD A ctive ZOFRAN 8 MG TABS 1 tab by mouth every 12 hours prn 201 05/16/09 ONDANSETRON HCL 53762866852 No Longer Active Adam Yates MD Active PHENADOZ 25 MG SUPP 1 every 4 hrs. PRN PROMETHA ZINE HCL 30711796211 No Longer Active Adam Yates MD Active POTASSIUM CHLORIDE 20 MEQ PACK by mouth twice a day prn POTASSIUM CHLORIDE 52662098793 No Longer Active Adam Yates MD Active PROMETHAZINE HCL 25 MG TABS 1 Q. 4 hr. PRN PROM ETHAZINE HCL 24505730073 No Longer Active Adam Yates MD Active INNOPRAN XL 120 MG [id number] Take one by mouth daily 2 PROPRANOLOL HCL SR BEADS 67589913385 No Longer Active Adam Yates MD A ctive FLAGYL 500 MG TABS 1 pill by mouth three times daily, for diarrh ea METRONIDAZOLE 63370762526 No Longer Active Hope Benavidez MD PhD Active DYAZIDE 37.5-25 MG CAPS 1 qd TRIAMTERENE-HC TZ 78986726346 No Longer Active Hope Benavidez MD PhD Active PROZAC 20 MG CAPS 1 q d FLUOXETINE HCL 76125 904512 No Longer Active Hope Benavidez MD PhD Active SIMVASTATIN 40 MG TABS 1 qd SIMVASTATIN 004 11911447 No Longer Active Adam Yates MD Active MELOXICAM 15 MG TABS 1 qd MELOXICAM 2026382 5801 No Longer Active Adam Yates MD Active IMODIUM A-D 2 MG TABS 2 onset at diarrhea and prn. LOPERAMIDE HCL 87397755391 Active Hope Benavidez MD PhD Active EXCEDRIN EXTRA STRENGTH 250-250-65 MG TABS 1-2 q6h PRN headache 201 04/16/21 [id number] 26506956425 Active Hope Benavidez MD PhD Active FLAGYL 500 MG TABS 1 qid METRONIDAZOLE 42704 658783 No Longer Active Adam Yates MD Active LEVAQUIN 750 MG TABS 1 qd LEVOFLOXACIN 5486 5675567 No Longer Active Adam Yates MD Active ADULT ASPIRIN LOW STRENGTH 81 MG TBDP 1 qd A SPIRIN 68310819008 Active Hope Benavidez MD PhD Active LEVAQUIN 750 MG TABS 1 qd LEVAQUIN 750 MG T ABS 876078 LEVOFLOXACIN Inactive FLAGYL 500 MG TABS 1 qid FLAGYL 500 MG TABS 593707 METRONIDAZOLE Inactive MELOXICAM 15 MG TABS 1 qd MELOXICAM 15 MG T ABS 930247 MELOXICAM Inactive SIMVASTATIN 40 MG TABS 1 qd SIMVASTATIN 40 MG TABS 308895 SIMVASTATIN Inactive PROZAC 20 MG CAPS 1 q d PROZAC 20 MG CAPS 31 0385 FLUOXETINE HCL Inactive DYAZIDE 37.5-25 MG CAPS 1 qd DYAZIDE 37.5 -25 MG CAPS 638018 TRIAMTERENE-HCTZ Inactive INNOPRAN XL 120 MG [id number] Take one by mouth daily 2 INNOPRAN XL 120 MG [id number] PROPRANOLOL HCL SR BEADS Inactive PROMETHAZINE HCL 25 MG TABS 1 Q. 4 hr. PRN PROMETHAZINE HCL 25 MG TABS 033806 PROMETHAZINE HCL Inactive POTASSIUM CHLORIDE 20 MEQ PACK by mouth twice a day prn POTASSIUM CHLORIDE 20 MEQ PACK 3026008 POTASSIUM CHLORIDE Inactive PHENADOZ 25 MG SUPP 1 every 4 hrs. PRN PHENADOZ 2 5 MG SUPP 876574 PROMETHAZINE HCL Inactive ZOFRAN 8 MG TABS 1 tab by mouth every 12 hours prn 201 05/16/09 ZOFRAN 8 MG TABS 314672 ONDANSETRON HCL Inactive OMEPRAZOLE 20 MG CPDR 1 tablet by mouth daily for GERD OMEPRAZOLE 20 MG CPDR 066590 OMEPRAZOLE Inactive CYCLOBENZAPRINE HCL 10 MG TABS 1 tablet by mouth three times daily as needed for headaches CYCLOBENZAPRINE HCL 10 MG TABS 995641 CYCLOBENZAPRINE HCL Inactive VITAMIN D3 4000 IU 1 tab 3 times daily VITAMIN D3 4000 IU Inactive PROPRANOLOL HCL 80 MG TABS 1 tab tue. and thur. 04/10 PROPRANOLOL HCL 80 MG TABS 742771 PROPRANOLOL HCL Inactive CYANOCOBALAMIN 1000 MCG/ML INJ SOLN 1 injection every 2 weeks 20 20/01/03 CYANOCOBALAMIN 1000 MCG/ML INJ SOLN 688643 CYANOCOBALAM IN Inactive MAGNESIUM GLUCONATE 250 MG TABS 1 tab tid 4 MAGNESIUM GLUCONATE 250 MG TABS 382696 MAGNESIUM GLUCONATE Inactive LOMOTIL 2.5-0.025 MG TABS 1 tab by mouth prn 4 LOMOTIL 2.5- 0.025 MG TABS 5152783 DIPHENOXYLATE-ATROPINE Inactive FLORANEX PACK 1 pack three times daily, for bowel health FLORANEX PACK LACTOBACILLUS Inactive IRON 325 (65 FE) MG TABS 1 every other day IRON 325 (65 FE) MG TABS 363493 FERROUS SULFATE Inactive FLAGYL 500 MG TABS 1 pill by mouth three times daily, for diarrh ea FLAGYL 500 MG TABS 931403 METRONIDAZOLE Inactive BACTRIM DS 800-160 MG TABS 1 pill by mouth twice daily, for UTI BACTRIM DS 800-160 MG TABS 366553 SULFAMETHOXAZOLE-TRIM ETHOPRIM Inactive Advance Directives Directive Description [...] 11 .0-15.0 platelet count 157 THOUSAND/UL 10*3/mm3 455-811 4802/04/20 mean platelet volume 8.9 fL 7.5-12.5 Lab Report: CBC W/DIFF, Comp. Metabolic Panel, Thyroid Stimulating Hormo ... - Chemistry sodium, serum 139 mmol/L 244-416 5974/10/20 carbon dioxide, venous blood 32.2 mmol/L 21.0-32 [...] - Chemi stry cholesterol, serum 200 mg/dL 071-477 8070/11/22 triglyceride, serum, fasting 129 mg/dL 30-200 HDL cholesterol, serum 56 mg/dL 32-96 LDL cholesterol, serum 118 mg/dL 0-130 calcium, serum 9.0 mg/dL 8.5-10.1 Lab Report: MicroAlb Random w/creat/6517 - Urinalysis microalbumin/total urine volume 8 mg/L Units converted. See lab report for original value. microalbumin/creatinine ratio, urine 15 MCG/MG CREAT mg/L <30 Encounters Code Encounter Date Provider Facility CPT-68225 Level 3 Est. Patient 16:26:30 CDT Kina blackmon [facility] CPT-72644 Level 3 New Patient 16:22:01 MANAGER MEDICAL Adam Yates MD [facility] CPT-95979 Level 4 Est. Patient 17:00:48 CDT Kylie Lund [facility] CPT-20740 Level 3 Est. Patient 13:15:54 CDT Kylie Lund [facility] CPT-05091 Level 3 Est. Patient 09:10:11 CDT Kylie Lund [facility] CPT-54708 Level 4 Est. Patient 12:08:30 MANAGER MEDICAL Hope cohn MD PhD [facility] CPT-72346 Level 4 Est. Patient 19:08:42 MANAGER MEDICAL Hope cohn MD PhD [facility] CPT-64221 Level 4 Est. Patient 20:04:51 CDT Hope cohn MD PhD [facility] CPT-27076 Level 3 New Patient 01:46:11 MANAGER MEDICAL Hope landers MD PhD [facility] Procedures Code Procedure Name Date Entry Date Standard Desc ription CPT-J0897 Prolia 60 mg 14:14:16 MANAGER MEDICAL CPT-10614 Abx/Therapy Injection 14:14:15 MANAGER MEDICAL CPT-12089 Lipid - LAB USE ONLY 10:01:52 MANAGER MEDICAL 2 CPT-42976 Calcium - LAB USE ONLY 10:01:51 MANAGER MEDICAL CPT-27471 Venipuncture Draw Fee 10:01:51 MANAGER MEDICAL CPT-LR Lesion Removal 16:22:01 MANAGER MEDICAL CPT-55946 TSH - LAB USE ONLY 14:26:02 CDT CPT-13200 CMP - LAB USE ONLY 14:26:01 CDT CPT-87509 CBC with Diff - LAB USE ONLY 14:26:01 CDT 2 CPT-76230 Venipuncture Draw Fee 14:26:01 CDT CPT-89993 First Vx - Ix admin for Medicare patients 13:27:08 CDT CPT-11384 Fluzone High-Dose Intramuscular Suspension 11/26 13:27:08 CDT CPT-G0438 Initial Annual Wellness Exam 14:19:57 CD T CPT-G0009 Administration of Pneumococcal Vaccine 9 11:36:25 CDT CPT-01062 Prevnar 13 Intramuscular Suspension 1 1:36:25 CDT CPT-03509 Prevnar 13 Intramuscular Suspension 1 0:40:58 CDT CPT-J0897 Prolia 60 mg 10:37:16 CDT CPT-84940 Abx/Therapy Injection 10:37:16 CDT CPT-J0897 Prolia 60 mg 16:09:34 MANAGER MEDICAL CPT-J0897 Prolia 60 mg 11:10:35 MANAGER MEDICAL CPT-24007 Abx/Therapy Injection 11:10:35 MANAGER MEDICAL CPT-000 Give Appropriate Flu Vaccine 17:01:15 MANAGER MEDICAL 2 CPT-49636 Fluzone High Dose (65+) 15:03:08 MANAGER MEDICAL 02/15 CPT-41952 Immunization Single Admin 15:03:08 MANAGER MEDICAL 2014 CPT-OV Office Visit 15:58:06 CDT CPT-J0897 Prolia 60 mg 08:45:38 CDT CPT-47599 Abx/Therapy Injection 08:45:38 CDT CPT-J3420 Vitamin B12 1000mcg (Cyanocobalamin) 09:26:20 MANAGER MEDICAL CPT-82761 Abx/Therapy Injection 09:26:20 MANAGER MEDICAL CPT-J3420 Vitamin B12 1000mcg (Cyanocobalamin) 09:44:40 MANAGER MEDICAL CPT-07315 Abx/Therapy Injection 09:44:40 MANAGER MEDICAL CPT-J3420 Vitamin B12 1000mcg (Cyanocobalamin) 09:15:54 MANAGER MEDICAL CPT-32545 Abx/Therapy Injection 09:15:54 MANAGER MEDICAL CPT-J3420 Vitamin B12 1000mcg (Cyanocobalamin) 09:46:44 MANAGER MEDICAL CPT-28358 Abx/Therapy Injection 09:46:44 MANAGER MEDICAL CPT-J3420 Vitamin B12 1000mcg (Cyanocobalamin) 09:47:34 MANAGER MEDICAL CPT-52912 Abx/Therapy Injection 09:47:34 MANAGER MEDICAL CPT-J3420 Vitamin B12 1000mcg (Cyanocobalamin) 14:35:50 MANAGER MEDICAL CPT-J3420 Vitamin B12 1000mcg (Cyanocobalamin) 09:25:05 MANAGER MEDICAL CPT-74549 Abx/Therapy Injection 09:25:05 MANAGER MEDICAL CPT-G0008 Administration of Influenza Virus Vaccine 13:36:47 CDT CPT-69440 Fluzone High-Dose Intramuscular Suspension 11/15 13:36:47 CDT CPT-J0897 Prolia 60 mg 08:50:41 CDT CPT-86062 Abx/Therapy Injection 08:50:41 CDT CPT-92948 Bone Density 12:06:12 CDT CPT-09278 Bone Density 08:54:40 CDT CPT-OV Office Visit 15:37:02 CDT CPT-63677 Postop F/U Visit 15:47:49 CDT CPT-63719 Postop F/U Visit 15:21:02 CDT CPT-TCMH Transitional Care Mgmt-High 07:52:27 CDT 20 20/06/01 CPT-42365 Venipuncture Draw Fee 13:51:18 CDT CPT-86534 Venipuncture Draw Fee 10:14:55 MANAGER MEDICAL CPT-77258 Venipuncture Draw Fee 13:39:45 MANAGER MEDICAL CPT-OV Office Visit 15:11:22 MANAGER MEDICAL CPT-09000 Venipuncture Draw Fee 09:20:49 MANAGER MEDICAL CPT-33546 Venipuncture Draw Fee 16:52:15 MANAGER MEDICAL CPT-69336 Venipuncture Draw Fee 10:37:24 MANAGER MEDICAL CPT-85281 Venipuncture Draw Fee 08:21:21 MANAGER MEDICAL CPT-97230 Venipuncture Draw Fee 08:30:20 MANAGER MEDICAL CPT-12547 Venipuncture Draw Fee 14:53:21 MANAGER MEDICAL CPT-28879 Venipuncture Draw Fee 09:40:56 MANAGER MEDICAL CPT-62254 Venipuncture Draw Fee 10:30:47 MANAGER MEDICAL CPT-22413 Venipuncture Draw Fee 10:46:17 MANAGER MEDICAL CPT-07694 Venipuncture Draw Fee 11:12:45 MANAGER MEDICAL CPT-66182 Venipuncture Draw Fee 09:53:33 MANAGER MEDICAL CPT-47831 Venipuncture Draw Fee 11:53:51 MANAGER MEDICAL CPT-45525 Venipuncture Draw Fee 10:33:50 MANAGER MEDICAL CPT-86883 Venipuncture Draw Fee 10:05:01 MANAGER MEDICAL CPT-53238 Venipuncture Draw Fee 14:32:52 MANAGER MEDICAL CPT-81495 Venipuncture Draw Fee 09:46:13 MANAGER MEDICAL CPT-12438 Venipuncture Draw Fee 11:34:27 MANAGER MEDICAL CPT-32962 Venipuncture Draw Fee 13:17:16 MANAGER MEDICAL CPT-08448 Venipuncture Draw Fee 12:05:39 CDT CPT-92274 Venipuncture Draw Fee 12:49:12 CDT CPT-48475 Venipuncture Draw Fee 12:37:18 CDT CPT-99736 Venipuncture Draw Fee 10:57:11 CDT CPT-18331 Venipuncture Draw Fee 13:47:40 CDT CPT-74794 Venipuncture Draw Fee 10:02:17 CDT CPT-62091 TB Tubersol 17:32:32 CDT CPT-OV Office Visit 16:21:53 CDT CPT-OV Office Visit 15:49:22 CDT CPT-OV Office Visit 17:16:31 CDT CPT-OV Office Visit 10:43:31 CDT
--- OUTSIDE RECORDS SUMMARY | 2019-02-09 12:43 | XMS REPORT | Clinical Summary ---
Author Author Admin, Florecita Munoz Organization [facility] [employer] Address Unknown Phone Unavailable Allergies, Adverse [...] cyst, scalp 706.2 Resolved Kylie Yokum INSIDE TESTER Sebaceous cyst Cervical lymphadenopathy, anterior, left 785.6 Resolv ed Kylie Yokum INSIDE TESTER Enlargement of lymph nodes Need for prophylactic vaccination and inoculation against in fluenza V04.81 Resolved Adam Yates MD Need for prophylactic vaccination and inoculation against influenza Preventive health care V70.0 Active Kylie Yokum INSIDE TESTER Routine general medical examination at a health care facility Thyroid nodule, left 241.0 Active Kylie Yokum A PRN Nontoxic uninodular goiter Screening mammogram V76.12 Active Kylie Yogabbium AP RN Other screening mammogram Mandy 706.2 Resolved Kylie Yokum INSIDE TESTER Sebaceous cyst Colon cancer, ascending 153.6 Resolved Kylie Yok um INSIDE TESTER Malignant neoplasm of ascending colon Foot pain, left 729.5 Active Sulema Naff CADDY Pain in limb Splinter 919.6 Active Kylie Yokum INSIDE TESTER Superficial foreign body (splinter) of other, multiple, and unspecified sites, without major open wound and without mention of infection ABDOMINAL PAIN, RIGHT LOWER QUADRANT ICD-789.03 Inactive Kina Joshua INSIDE TESTER ADENOCARCINOMA, COLON, 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 Dick Yates MD ABDOMINAL PAIN, GENERALIZED ICD-789.07 Inactive Hope Benavidez MD PhD FEVER UNSPECIFIED ICD-780.60 Inactive Hope cohn MD PhD UNSPECIFIED VENOUS INSUFFICIENCY ICD-459.81 Edison ctive Adam Yates MD ADENOCARCINOMA, 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 Inac tive Hope Benavidez MD PhD Hyperkalemia ICD-276.7 Inactive Hope Benavidez MD PhD GERD ICD-530.81 Inactive Kylie Holt INSIDE TESTER 2015 Health maintenance exam ICD-V70.0 Inactive Adolfo Yates MD Anemia ICD-285.9 Inactive Kylie Holt INSIDE TESTER 07/24 Hypomagnesemia ICD-275.2 Inactive Kylie Holt INSIDE TESTER Weakness ICD-780.79 Inactive Hope Benavidez MD P [...] Sebaceous cyst, scalp ICD-706.2 Inactive Tracy Holt INSIDE TESTER Cervical lymphadenopathy, anterior, left ICD-785.6 Inactive Kylie Holt INSIDE TESTER Need for prophylactic vaccination and inoculation against in fluenza ICD-V04.81 Inactive Adam Yates MD Mandy ICD-706.2 Inactive Kylie Holt INSIDE TESTER 07/20 Colon cancer, ascending ICD-153.6 Inactive Gabbi Holt INSIDE TESTER Medication List Medication Instructions Start Date Stop Date Generic Name NDC Status Provider Patient Instruction COQ10 100 MG ORAL CAPS 1 daily COENZYME Q10 [id number] 20 Active LETY Nation Active VITAMIN D3 2000 UNIT ORAL CAPS Melaleuca-One daily CHOLECALCIFEROL 84680947497 Active Kylie Holt INSIDE TESTER Active PROBIOTIC DAILY ORAL CAPS Take one daily PROBIOTIC PRODUCT 48307654924 Active Kylie Holt INSIDE TESTER Active IRON 325 (65 FE) MG TABS 1 every other day FERR OUS SULFATE 52098098947 No Longer Active Kylie Holt INSIDE TESTER Active FLORANEX PACK 1 pack three times daily, for bowel health LACTOBACILLUS 72978041424 No Longer Active Kylie Holt APRN Active LOMOTIL 2.5-0.025 MG TABS 1 tab by mouth prn 4 DIPHENOXYLATE-ATROPINE 56523201500 No Longer Active Kylie Lundum INSIDE TESTER Active MAGNESIUM GLUCONATE 250 MG TABS 1 tab tid 4 MAGNESIUM GLUCONATE 72145506064 No Longer Active Kylie Lundum INSIDE TESTER Active CYANOCOBALAMIN 1000 MCG/ML INJ SOLN 1 injection every 2 weeks 20 20/01/03 CYANOCOBALAMIN 31075152518 No Longer Active Kylie Lundum INSIDE TESTER Active ATENOLOL 25 MG ORAL TABS 1/2 pill by mouth daily, for headac hes, blood pressure ATENOLOL 54141050840 Active Kylie Yanet INSIDE TESTER Active PROPRANOLOL HCL 80 MG TABS 1 tab tue. and thur. 04/10 PROPRANOLOL HCL 58376090790 No Longer Active Hope Benavidez MD PhD A ctive VITAMIN D3 4000 IU 1 tab 3 times daily VITAMIN D3 4000 IU No Longer Active Hope Benavidez MD PhD Active BACTRIM DS 800-160 MG TABS 1 pill by mouth twice daily, for UTI SULFAMETHOXAZOLE-TRIMETHOPRIM 63176978282 No Longer Active A attila Benavidez MD PhD Active PROLIA 60 MG/ML SOLN 1 shot every 6 months for osteoprosis DENOSUMAB 13628481290 Active Hope Benavidez MD PhD Active CALCIUM + D + K 750-500-40 MG-UNT-MCG TABS 1 tab by mouth tw ice daily CALCIUM-VITAMIN D-VITAMIN K 96947844304 Active Hope landers MD PhD Active DAILY VALUE MULTIVITAMIN TABS 1 tab by mouth twice daily MULTIPLE VITAMIN 84091129789 Active Hope Benavidez MD PhD Active FISH OIL 306 MG CAPS 1 tab by mouth three times daily OMEGA-3 FATTY ACIDS 54420622781 Active Hope Benavidez MD PhD Active LUTEIN 10 MG TABS 1 tab daily LUTEIN 23030145527 Act cash Hope Benavidez MD PhD Active TRIAMTERENE-HCTZ 37.5-25 MG TABS 1 tab by mouth daily TRIAMTERENE-HCTZ 77038858070 Active Kylie Holt APRN Active CYCLOBENZAPRINE HCL 10 MG TABS 1 tablet by mouth three times daily as needed for headaches CYCLOBENZAPRINE HCL 58770548269 No Longe r Active Adam Yates MD Active OMEPRAZOLE 20 MG CPDR 1 tablet by mouth daily for GERD OMEPRAZOLE 49770285451 No Longer Active Adam Yates MD A ctive ZOFRAN 8 MG TABS 1 tab by mouth every 12 hours prn 201 05/16/09 ONDANSETRON HCL 27866665381 No Longer Active Adam Yates MD Active PHENADOZ 25 MG SUPP 1 every 4 hrs. PRN PROMETHA ZINE HCL 65807155064 No Longer Active Adam Yates MD Active POTASSIUM CHLORIDE 20 MEQ PACK by mouth twice a day prn POTASSIUM CHLORIDE 22688475829 No Longer Active Adam Yates MD Active PROMETHAZINE HCL 25 MG TABS 1 Q. 4 hr. PRN PROM ETHAZINE HCL 69535522671 No Longer Active Adam Yates MD Active INNOPRAN XL 120 MG [id number] Take one by mouth daily 2 PROPRANOLOL HCL SR BEADS 04297827155 No Longer Active Adam Yates MD A ctive FLAGYL 500 MG TABS 1 pill by mouth three times daily, for diarrh ea METRONIDAZOLE 64742060359 No Longer Active Hope Benavidez MD PhD Active DYAZIDE 37.5-25 MG CAPS 1 qd TRIAMTERENE-HC TZ 52777789930 No Longer Active Hope Benavidez MD PhD Active PROZAC 20 MG CAPS 1 q d FLUOXETINE HCL 06289 243301 No Longer Active Hope Benavidez MD PhD Active SIMVASTATIN 40 MG TABS 1 qd SIMVASTATIN 004 59391148 No Longer Active Adam Yates MD Active MELOXICAM 15 MG TABS 1 qd MELOXICAM 9156312 1580 No Longer Active Adam Yates MD Active IMODIUM A-D 2 MG TABS 2 onset at diarrhea and prn. LOPERAMIDE HCL 84229031041 Active Hope Benavidez MD PhD Active EXCEDRIN EXTRA STRENGTH 250-250-65 MG TABS 1-2 q6h PRN headache 201 04/16/21 [id number] 72478336462 Active Hope Benavidez MD PhD Active FLAGYL 500 MG TABS 1 qid METRONIDAZOLE 07950 917381 No Longer Active Adam Yates MD Active LEVAQUIN 750 MG TABS 1 qd LEVOFLOXACIN 5486 5245852 No Longer Active Adam Yates MD Active ADULT ASPIRIN LOW STRENGTH 81 MG TBDP 1 qd A SPIRIN 95808024079 Active Hope Benavidez MD PhD Active LEVAQUIN 750 MG TABS 1 qd LEVAQUIN 750 MG T ABS 174168 LEVOFLOXACIN Inactive FLAGYL 500 MG TABS 1 qid FLAGYL 500 MG TABS 139706 METRONIDAZOLE Inactive MELOXICAM 15 MG TABS 1 qd MELOXICAM 15 MG T ABS 061793 MELOXICAM Inactive SIMVASTATIN 40 MG TABS 1 qd SIMVASTATIN 40 MG TABS 634100 SIMVASTATIN Inactive PROZAC 20 MG CAPS 1 q d PROZAC 20 MG CAPS 31 0385 FLUOXETINE HCL Inactive DYAZIDE 37.5-25 MG CAPS 1 qd DYAZIDE 37.5 -25 MG CAPS 071737 TRIAMTERENE-HCTZ Inactive INNOPRAN XL 120 MG [id number] Take one by mouth daily 2 INNOPRAN XL 120 MG [id number] PROPRANOLOL HCL SR BEADS Inactive PROMETHAZINE HCL 25 MG TABS 1 Q. 4 hr. PRN PROMETHAZINE HCL 25 MG TABS 590994 PROMETHAZINE HCL Inactive POTASSIUM CHLORIDE 20 MEQ PACK by mouth twice a day prn POTASSIUM CHLORIDE 20 MEQ PACK 2076411 POTASSIUM CHLORIDE Inactive PHENADOZ 25 MG SUPP 1 every 4 hrs. PRN PHENADOZ 2 5 MG SUPP 083670 PROMETHAZINE HCL Inactive ZOFRAN 8 MG TABS 1 tab by mouth every 12 hours prn 201 05/16/09 ZOFRAN 8 MG TABS 291699 ONDANSETRON HCL Inactive OMEPRAZOLE 20 MG CPDR 1 tablet by mouth daily for GERD OMEPRAZOLE 20 MG CPDR 148454 OMEPRAZOLE Inactive CYCLOBENZAPRINE HCL 10 MG TABS 1 tablet by mouth three times daily as needed for headaches CYCLOBENZAPRINE HCL 10 MG TABS 724343 CYCLOBENZAPRINE HCL Inactive VITAMIN D3 4000 IU 1 tab 3 times daily VITAMIN D3 4000 IU Inactive PROPRANOLOL HCL 80 MG TABS 1 tab tue. and thur. 04/10 PROPRANOLOL HCL 80 MG TABS 353212 PROPRANOLOL HCL Inactive CYANOCOBALAMIN 1000 MCG/ML INJ SOLN 1 injection every 2 weeks 20 20/01/03 CYANOCOBALAMIN 1000 MCG/ML INJ SOLN 790878 CYANOCOBALAM IN Inactive MAGNESIUM GLUCONATE 250 MG TABS 1 tab tid 4 MAGNESIUM GLUCONATE 250 MG TABS 027837 MAGNESIUM GLUCONATE Inactive LOMOTIL 2.5-0.025 MG TABS 1 tab by mouth prn 4 LOMOTIL 2.5- 0.025 MG TABS 6280464 DIPHENOXYLATE-ATROPINE Inactive FLORANEX PACK 1 pack three times daily, for bowel health FLORANEX PACK LACTOBACILLUS Inactive IRON 325 (65 FE) MG TABS 1 every other day IRON 325 (65 FE) MG TABS 269234 FERROUS SULFATE Inactive FLAGYL 500 MG TABS 1 pill by mouth three times daily, for diarrh ea FLAGYL 500 MG TABS 578006 METRONIDAZOLE Inactive BACTRIM DS 800-160 MG TABS 1 pill by mouth twice daily, for UTI BACTRIM DS 800-160 MG TABS 727020 SULFAMETHOXAZOLE-TRIM ETHOPRIM Inactive Advance Directives Directive Description [...] 11 .0-15.0 platelet count 157 THOUSAND/UL 10*3/mm3 402-589 8311/04/20 mean platelet volume 8.9 fL 7.5-12.5 Lab Report: CBC W/DIFF, Comp. Metabolic Panel, Thyroid Stimulating Hormo ... - Chemistry sodium, serum 139 mmol/L 218-231 0403/10/20 carbon dioxide, venous blood 32.2 mmol/L 21.0-32 [...] - Chemi stry cholesterol, serum 200 mg/dL 387-519 0109/11/22 triglyceride, serum, fasting 129 mg/dL 30-200 HDL cholesterol, serum 56 mg/dL 32-96 LDL cholesterol, serum 118 mg/dL 0-130 calcium, serum 9.0 mg/dL 8.5-10.1 Lab Report: MicroAlb Random w/creat/6517 - Urinalysis microalbumin/total urine volume 8 mg/L Units converted. See lab report for original value. microalbumin/creatinine ratio, urine 15 MCG/MG CREAT mg/L <30 Encounters Code Encounter Date Provider Facility CPT-77095 Level 3 Est. Patient 17:54:48 CDT Kylie boyd [facility] CPT-74505 Level 3 Est. Patient 16:26:30 CDT Kina blackmon [facility] CPT-99274 Level 3 New Patient 16:22:01 MANUFACTURING TEAM LEADER Adam Yates MD [facility] CPT-03219 Level 4 Est. Patient 17:00:48 CDT Kylie Lund [facility] CPT-57050 Level 3 Est. Patient 13:15:54 CDT Kylie Lund [facility] CPT-42748 Level 3 Est. Patient 09:10:11 CDT Kylie Lund [facility] CPT-54889 Level 4 Est. Patient 12:08:30 MANUFACTURING TEAM LEADER Hope cohn MD [facility] CPT-91587 Level 4 Est. Patient 19:08:42 MANUFACTURING TEAM LEADER Hope cohn MD PhD [facility] CPT-63991 Level 4 Est. Patient 20:04:51 CDT Hope cohn MD [facility] CPT-93568 Level 3 New Patient 01:46:11 MANUFACTURING TEAM LEADER Hope lanedrs MD PhD [facility] Procedures Code Procedure Name Date Entry Date Standard Desc ription CPT-08369 Bone Density - XRAY USE ONLY 10:27:12 CDT 2 CPT-G0439 [facility] Annual Wellness Exam 17:54:53 CDT CPT-95978 Foot, left, comp min 3V - XRAY USE ONLY 12:22:49 CDT CPT-G0009 Administration of Pneumococcal Vaccine 3 12:18:00 CDT CPT-17393 Pneumovax 23 Injection Injectable 25 MCG /0.5ML 12:18:00 CDT CPT-J0897 Prolia 60 mg 14:14:16 MANUFACTURING TEAM LEADER CPT-71906 Abx/Therapy Injection 14:14:15 MANUFACTURING TEAM LEADER CPT-39827 Lipid - LAB USE ONLY 10:01:52 MANUFACTURING TEAM LEADER 2 CPT-46895 Calcium - LAB USE ONLY 10:01:51 MANUFACTURING TEAM LEADER CPT-05397 Venipuncture Draw Fee 10:01:51 MANUFACTURING TEAM LEADER CPT-LR Lesion Removal 16:22:01 MANUFACTURING TEAM LEADER CPT-91505 TSH - LAB USE ONLY 14:26:02 CDT CPT-37253 CMP - LAB USE ONLY 14:26:01 CDT CPT-16686 CBC with Diff - LAB USE ONLY 14:26:01 CDT 2 CPT-08480 Venipuncture Draw Fee 14:26:01 CDT CPT-61192 First Vx - Ix admin for Medicare patients 13:27:08 CDT CPT-14823 Fluzone High-Dose Intramuscular Suspension 11/26 13:27:08 CDT CPT-G0438 Initial Annual Wellness Exam 14:19:57 CD T CPT-G0009 Administration of Pneumococcal Vaccine 9 11:36:25 CDT CPT-02503 Prevnar 13 Intramuscular Suspension 1 1:36:25 CDT CPT-54876 Prevnar 13 Intramuscular Suspension 1 0:40:58 CDT CPT-J0897 Prolia 60 mg 10:37:16 CDT CPT-61994 Abx/Therapy Injection 10:37:16 CDT CPT-J0897 Prolia 60 mg 16:09:34 MANUFACTURING TEAM LEADER CPT-J0897 Prolia 60 mg 11:10:35 MANUFACTURING TEAM LEADER CPT-99969 Abx/Therapy Injection 11:10:35 MANUFACTURING TEAM LEADER CPT-000 Give Appropriate Flu Vaccine 17:01:15 MANUFACTURING TEAM LEADER 2 CPT-40948 Fluzone High Dose (65+) 15:03:08 MANUFACTURING TEAM LEADER 02/15 CPT-91700 Immunization Single Admin 15:03:08 MANUFACTURING TEAM LEADER 2014 CPT-OV Office Visit 15:58:06 CDT CPT-J0897 Prolia 60 mg 08:45:38 CDT CPT-40096 Abx/Therapy Injection 08:45:38 CDT CPT-J3420 Vitamin B12 1000mcg (Cyanocobalamin) 09:26:20 MANUFACTURING TEAM LEADER CPT-24304 Abx/Therapy Injection 09:26:20 MANUFACTURING TEAM LEADER CPT-J3420 Vitamin B12 1000mcg (Cyanocobalamin) 09:44:40 MANUFACTURING TEAM LEADER CPT-30333 Abx/Therapy Injection 09:44:40 MANUFACTURING TEAM LEADER CPT-J3420 Vitamin B12 1000mcg (Cyanocobalamin) 09:15:54 MANUFACTURING TEAM LEADER CPT-59965 Abx/Therapy Injection 09:15:54 MANUFACTURING TEAM LEADER CPT-J3420 Vitamin B12 1000mcg (Cyanocobalamin) 09:46:44 MANUFACTURING TEAM LEADER CPT-66630 Abx/Therapy Injection 09:46:44 MANUFACTURING TEAM LEADER CPT-J3420 Vitamin B12 1000mcg (Cyanocobalamin) 09:47:34 MANUFACTURING TEAM LEADER CPT-99373 Abx/Therapy Injection 09:47:34 MANUFACTURING TEAM LEADER CPT-J3420 Vitamin B12 1000mcg (Cyanocobalamin) 14:35:50 MANUFACTURING TEAM LEADER CPT-J3420 Vitamin B12 1000mcg (Cyanocobalamin) 09:25:05 MANUFACTURING TEAM LEADER CPT-57132 Abx/Therapy Injection 09:25:05 MANUFACTURING TEAM LEADER CPT-G0008 Administration of Influenza Virus Vaccine 13:36:47 CDT CPT-66444 Fluzone High-Dose Intramuscular Suspension 11/15 13:36:47 CDT CPT-J0897 Prolia 60 mg 08:50:41 CDT CPT-09725 Abx/Therapy Injection 08:50:41 CDT CPT-60363 Bone Density 12:06:12 CDT CPT-72177 Bone Density 08:54:40 CDT CPT-OV Office Visit 15:37:02 CDT CPT-50025 Postop F/U Visit 15:47:49 CDT CPT-48225 Postop F/U Visit 15:21:02 CDT CPT-[facility] Transitional Care Mgmt-High 07:52:27 CDT 20 20/06/01 CPT-91729 Venipuncture Draw Fee 13:51:18 CDT CPT-17169 Venipuncture Draw Fee 10:14:55 MANUFACTURING TEAM LEADER CPT-39477 Venipuncture Draw Fee 13:39:45 MANUFACTURING TEAM LEADER CPT-OV Office Visit 15:11:22 MANUFACTURING TEAM LEADER CPT-60422 Venipuncture Draw Fee 09:20:49 MANUFACTURING TEAM LEADER CPT-70681 Venipuncture Draw Fee 16:52:15 MANUFACTURING TEAM LEADER CPT-38146 Venipuncture Draw Fee 10:37:24 MANUFACTURING TEAM LEADER CPT-41661 Venipuncture Draw Fee 08:21:21 MANUFACTURING TEAM LEADER CPT-66722 Venipuncture Draw Fee 08:30:20 MANUFACTURING TEAM LEADER CPT-17960 Venipuncture Draw Fee 14:53:21 MANUFACTURING TEAM LEADER CPT-21234 Venipuncture Draw Fee 09:40:56 MANUFACTURING TEAM LEADER CPT-81775 Venipuncture Draw Fee 10:30:47 MANUFACTURING TEAM LEADER CPT-88508 Venipuncture Draw Fee 10:46:17 MANUFACTURING TEAM LEADER CPT-71681 Venipuncture Draw Fee 11:12:45 MANUFACTURING TEAM LEADER CPT-99049 Venipuncture Draw Fee 09:53:33 MANUFACTURING TEAM LEADER CPT-58558 Venipuncture Draw Fee 11:53:51 MANUFACTURING TEAM LEADER CPT-51321 Venipuncture Draw Fee 10:33:50 MANUFACTURING TEAM LEADER CPT-52581 Venipuncture Draw Fee 10:05:01 MANUFACTURING TEAM LEADER CPT-88145 Venipuncture Draw Fee 14:32:52 MANUFACTURING TEAM LEADER CPT-82882 Venipuncture Draw Fee 09:46:13 MANUFACTURING TEAM LEADER CPT-50478 Venipuncture Draw Fee 11:34:27 MANUFACTURING TEAM LEADER CPT-79660 Venipuncture Draw Fee 13:17:16 MANUFACTURING TEAM LEADER CPT-73561 Venipuncture Draw Fee 12:05:39 CDT CPT-31221 Venipuncture Draw Fee 12:49:12 CDT CPT-58236 Venipuncture Draw Fee 12:37:18 CDT CPT-64089 Venipuncture Draw Fee 10:57:11 CDT CPT-26065 Venipuncture Draw Fee 13:47:40 CDT CPT-18262 Venipuncture Draw Fee 10:02:17 CDT CPT-61407 TB Tubersol 17:32:32 CDT CPT-OV Office Visit 16:21:53 CDT CPT-OV Office Visit 15:49:22 CDT CPT-OV Office Visit 17:16:31 CDT CPT-OV Office Visit 10:43:31 CDT
--- OUTSIDE RECORDS SUMMARY | 2019-02-09 12:44 | XMS REPORT | Clinical Summary ---
Author Author Florecita Macario Organization [facility] Address Unknown Phone Unavailable Allergies, Adverse [...] MD PhD Diarrhea Osteoporosis 733.00 Active Hope Bneavidez MD PhD Osteoporosis, unspecified Dysuria 788.1 Resolved [...] cohn MD PhD UNSPECIFIED VENOUS INSUFFICIENCY ICD-459.81 [place] ctive Adam Yates MD ADENOCARCINOMA, ASCENDING COLON [...] daily, for headac hes, blood pressure ATENOLOL 13603161678 Active Hope Benavidez MD PhD Active PROPRANOLOL HCL 80 MG TABS 1 tab tue. and thur. 04/10 PROPRANOLOL HCL 78458592243 No Longer Active Hope Benavidez MD PhD A ctive IRON 325 (65 FE) MG TABS 1 every other day FERROUS SULFATE 76930093161 Active Hope Benavidez MD PhD Active VITAMIN D3 4000 IU 1 tab 3 times daily VITAMIN D3 4000 IU No Longer Active Hope Benavidez MD PhD Active CYANOCOBALAMIN 1000 MCG/ML INJ SOLN 1 injection every 2 weeks 01/09 CYANOCOBALAMIN 02405370599 Active Laura Elder Active BACTRIM DS 800-160 MG TABS 1 pill by mouth twice daily, for UTI SULFAMETHOXAZOLE-TRIMETHOPRIM 33809661659 No Longer Active Lisa attila Benavidez MD PhD Active PROLIA 60 MG/ML SOLN 1 shot every 6 months for osteoprosis DENOSUMAB 88515363241 Active Hope Benavidez MD PhD Active CALCIUM + D + K 750-500-40 MG-UNT-MCG TABS 1 tab by mouth tw ice daily CALCIUM-VITAMIN D-VITAMIN K 23588632443 Active Hope landers MD PhD Active DAILY VALUE MULTIVITAMIN TABS 1 tab by mouth twice daily MULTIPLE VITAMIN 62926192298 Active Hope Benavidez MD PhD Active FISH OIL 306 MG CAPS 1 tab by mouth three times daily OMEGA-3 FATTY ACIDS 64627262215 Active Hope Benavidez MD PhD Active LUTEIN 10 MG TABS 1 tab daily LUTEIN 13696578558 Act cash Hope Benavidez MD PhD Active FLORANEX PACK 1 pack three times daily, for bowel health LACTOBACILLUS 02300771263 Active Hope Benavidez MD PhD Active LOMOTIL 2.5-0.025 MG TABS 1 tab by mouth prn DIPHENOXYLATE-ATROPINE 43318320270 Active Hope Benavidez MD PhD Active TRIAMTERENE-HCTZ 37.5-25 MG TABS 1 tab by mouth daily TRIAMTERENE-HCTZ 91340641430 Active Hope Benavidez MD PhD Acti ve MAGNESIUM GLUCONATE 250 MG TABS 1 tab tid MAGN ESIUM GLUCONATE 10954591347 Active Adam Yates MD Active CYCLOBENZAPRINE HCL 10 MG TABS 1 tablet by mouth three times daily as needed for headaches CYCLOBENZAPRINE HCL 57244911748 No Longe r Active Adam Yates MD Active OMEPRAZOLE 20 MG CPDR 1 tablet by mouth daily for GERD OMEPRAZOLE 20692905777 No Longer Active Adam Yates MD A ctive ZOFRAN 8 MG TABS 1 tab by mouth every 12 hours prn 201 05/16/09 ONDANSETRON HCL 00290999868 No Longer Active Adam Yates MD Active PHENADOZ 25 MG SUPP 1 every 4 hrs. PRN PROMETHA ZINE HCL 63052391977 No Longer Active Adam Yates MD Active POTASSIUM CHLORIDE 20 MEQ PACK by mouth twice a day prn POTASSIUM CHLORIDE 79402354087 No Longer Active Adam Yates MD Active PROMETHAZINE HCL 25 MG TABS 1 Q. 4 hr. PRN PROM ETHAZINE HCL 33700677249 No Longer Active Adam Yates MD Active INNOPRAN XL 120 MG [id number] Take one by mouth daily 2 PROPRANOLOL HCL SR BEADS 38607867496 No Longer Active Adam Yates MD A ctive FLAGYL 500 MG TABS 1 pill by mouth three times daily, for diarrh ea METRONIDAZOLE 39464947947 No Longer Active Hope Benavidez MD PhD Active DYAZIDE 37.5-25 MG CAPS 1 qd TRIAMTERENE-HC TZ 07842606295 No Longer Active Hope Benavidez MD PhD Active PROZAC 20 MG CAPS 1 q d FLUOXETINE HCL 59274 887408 No Longer Active Hope Benavidez MD PhD Active SIMVASTATIN 40 MG TABS 1 qd SIMVASTATIN 004 24982297 No Longer Active Adam Yates MD Active MELOXICAM 15 MG TABS 1 qd MELOXICAM 3615828 2877 No Longer Active Adam Yates MD Active IMODIUM A-D 2 MG TABS 2 onset at diarrhea and prn. LOPERAMIDE HCL 39541000046 Active Hope Benavidez MD PhD Active EXCEDRIN EXTRA STRENGTH 250-250-65 MG TABS 1-2 q6h PRN headache 201 04/16/21 [id number] 21119412512 Active Hope Benavidez MD PhD Active FLAGYL 500 MG TABS 1 qid METRONIDAZOLE 77962 124393 No Longer Active Adam Yates MD Active LEVAQUIN 750 MG TABS 1 qd LEVOFLOXACIN 5486 9240435 No Longer Active Adam Yates MD Active ADULT ASPIRIN LOW STRENGTH 81 MG TBDP 1 qd A SPIRIN 58286527501 Active Hope Benavidez MD PhD Active LEVAQUIN 750 MG TABS 1 qd LEVAQUIN 750 MG T ABS 434660 LEVOFLOXACIN Inactive FLAGYL 500 MG TABS 1 qid FLAGYL 500 MG TABS 743450 METRONIDAZOLE Inactive MELOXICAM 15 MG TABS 1 qd MELOXICAM 15 MG T ABS 390292 MELOXICAM Inactive SIMVASTATIN 40 MG TABS 1 qd SIMVASTATIN 40 MG TABS 442499 SIMVASTATIN Inactive PROZAC 20 MG CAPS 1 q d PROZAC 20 MG CAPS 31 0385 FLUOXETINE HCL Inactive DYAZIDE 37.5-25 MG CAPS 1 qd DYAZIDE 37.5 -25 MG CAPS 851281 TRIAMTERENE-HCTZ Inactive INNOPRAN XL 120 MG [id number] Take one by mouth daily 2 INNOPRAN XL 120 MG [id number] PROPRANOLOL HCL SR BEADS Inactive PROMETHAZINE HCL 25 MG TABS 1 Q. 4 hr. PRN PROMETHAZINE HCL 25 MG TABS 257609 PROMETHAZINE HCL Inactive POTASSIUM CHLORIDE 20 MEQ PACK by mouth twice a day prn POTASSIUM CHLORIDE 20 MEQ PACK 894320 POTASSIUM CHLORIDE Inactive PHENADOZ 25 MG SUPP 1 every 4 hrs. PRN PHENADOZ 2 5 MG SUPP 278810 PROMETHAZINE HCL Inactive ZOFRAN 8 MG TABS 1 tab by mouth every 12 hours prn 201 05/16/09 ZOFRAN 8 MG TABS 332369 ONDANSETRON HCL Inactive OMEPRAZOLE 20 MG CPDR 1 tablet by mouth daily for GERD OMEPRAZOLE 20 MG CPDR 472792 OMEPRAZOLE Inactive CYCLOBENZAPRINE HCL 10 MG TABS 1 tablet by mouth three times daily as needed for headaches CYCLOBENZAPRINE HCL 10 MG TABS 779749 CYCLOBENZAPRINE HCL Inactive VITAMIN D3 4000 IU 1 tab 3 times daily VITAMIN D3 4000 IU Inactive PROPRANOLOL HCL 80 MG TABS 1 tab tue. and thur. 04/10 PROPRANOLOL HCL 80 MG TABS 868455 PROPRANOLOL HCL Inactive FLAGYL 500 MG TABS 1 pill by mouth three times daily, for diarrh ea FLAGYL 500 MG TABS 322308 METRONIDAZOLE Inactive BACTRIM DS 800-160 MG TABS [...] Range Description Chart Maintenance: labs added to [facility] - Chemistry magnesium, serum 2.0 mg/dL Chart Maintenance: Outside labs entered on [employer] - Chemistry sodium, serum 139 mmol/L potassium, serum 3.9 mmol/L blood glucose 85 mg/dL creatinine, serum 1.26 mg/dL aspartate aminotransferase (SGOT), serum 33 U/L alanine aminotransferase (SGPT), serum 44 U/L alkaline phosphatase, serum 127 U/L Chart Maintenance: Outside labs entered on [employer] - Hematology leukocyte count, blood 4.6 10*3/mm3 hemoglobin, blood 13.6 g/dL platelet count 162 10*3/mm3 Lab Report: BMP - Chemistry sodium, serum 141 mmol/L potassium, serum 4.2 mmol/L blood glucose 66 mg/dL creatinine, serum 1.16 mg/dL Lab Report: CBC W/DIFF, Comp. Metabolic Panel - Chemistry sodium, serum 138 mmol/L 979-823 7021/08/14 potassium, serum 4.0 mmol/L 3.5-5.2 chloride, serum [...] 0.40 mg/dL 0.00-1.00 sodium, serum 145 mmol/L 806-856 5583/02/02 potassium, serum 4.2 mmol/L 3.5-5.2 chloride, serum 104 mmol/L 98-107 carbon dioxide, venous blood 28.3 mmol/L 21.0-32 .0 blood glucose 93 mg/dL 65-110 urea nitrogen, blood 32 mg/dL 7-18 creatinine, serum 1.40 mg/dL 0.60-1.30 alanine aminotransferase (SGPT), serum 73 U/L 12-78 aspartate aminotransferase (SGOT), serum 42 U/L 15-37 calcium, serum 9.2 mg/dL 8.5-10.1 bilirubin, serum, total 0.40 mg/dL 0.00-1.00 sodium, serum 142 mmol/L 924-511 1868/04/27 potassium, serum 3.2 mmol/L 3.5-5.2 chloride, serum [...] 11 .6-14.8 platelet count 155 10^3/MM^3 10*3/mm3 031-920 1443/04/27 leukocyte count, blood 5.3 10^3/MM^3 10*3/mm3 4.6-10.2 [...] 11 .6-14.8 platelet count 213 10^3/MM^3 10*3/mm3 347-023 4437/08/14 leukocyte count, blood 5.8 10^3/MM^3 10*3/mm3 4.6-10.2 [...] - Chem istry sodium, serum 143 mmol/L 734-979 5548/04/15 potassium, serum 3.4 mmol/L 3.5-5.2 chloride, serum [...] Panel - Chemistry cholesterol, serum 209 mg/dL 390-275 6509/09/11 triglyceride, serum, fasting 113 mg/dL 30-200 HDL [...] semiquantitative 7.0 5.0-8.5 Lab Report: VITAMIN D, 25-HYDROXY/14967, MAGNESIUM/622 - Chemistry vitamin D 25-hydroxy, serum 41 ng/mL 30-100 Encounters Code Encounter Date Provider Facility CPT-86566 Level 4 Est. Patient 12:08:30 SACK REPAIRER Hope cohn MD PhD [facility] CPT-69665 Level 4 Est. Patient 19:08:42 SACK REPAIRER Hope cohn MD PhD [facility] CPT-53758 Level 4 Est. Patient 20:04:51 CDT Hope cohn MD PhD [facility] CPT-50782 Level 3 New Patient 01:46:11 SACK REPAIRER Hope landers MD PhD [facility] Procedures Code Procedure Name Date Entry Date Standard Desc ription CPT-OV Office Visit 15:58:06 CDT CPT-J0897 Prolia 60 mg 08:45:38 CDT CPT-69630 Abx/Therapy Injection 08:45:38 CDT CPT-J3420 Vitamin B12 1000mcg (Cyanocobalamin) 09:26:20 SACK REPAIRER CPT-11704 Abx/Therapy Injection 09:26:20 SACK REPAIRER CPT-J3420 Vitamin B12 1000mcg (Cyanocobalamin) 09:44:40 SACK REPAIRER CPT-86088 Abx/Therapy Injection 09:44:40 SACK REPAIRER CPT-J3420 Vitamin B12 1000mcg (Cyanocobalamin) 09:15:54 SACK REPAIRER CPT-72326 Abx/Therapy Injection 09:15:54 SACK REPAIRER CPT-J3420 Vitamin B12 1000mcg (Cyanocobalamin) 09:46:44 SACK REPAIRER CPT-55737 Abx/Therapy Injection 09:46:44 SACK REPAIRER CPT-J3420 Vitamin B12 1000mcg (Cyanocobalamin) 09:47:34 SACK REPAIRER CPT-76659 Abx/Therapy Injection 09:47:34 SACK REPAIRER CPT-J3420 Vitamin B12 1000mcg (Cyanocobalamin) 14:35:50 SACK REPAIRER CPT-J3420 Vitamin B12 1000mcg (Cyanocobalamin) 09:25:05 SACK REPAIRER CPT-08690 Abx/Therapy Injection 09:25:05 SACK REPAIRER CPT-G0008 Administration of Influenza Virus Vaccine 13:36:47 CDT CPT-20390 Fluzone High-Dose Intramuscular Suspension 11/15 13:36:47 CDT CPT-J0897 Prolia 60 mg 08:50:41 CDT CPT-87959 Abx/Therapy Injection 08:50:41 CDT CPT-18646 Bone Density 12:06:12 CDT CPT-23037 Bone Density 08:54:40 CDT CPT-OV Office Visit 15:37:02 CDT CPT-06560 Postop F/U Visit 15:47:49 CDT CPT-63447 Postop F/U Visit 15:21:02 CDT CPT-TCMH Transitional Care Mgmt-High 07:52:27 CDT 20 20/06/01 CPT-09450 Venipuncture Draw Fee 13:51:18 CDT CPT-75958 Venipuncture Draw Fee 10:14:55 SACK REPAIRER CPT-95876 Venipuncture Draw Fee 13:39:45 SACK REPAIRER CPT-OV Office Visit 15:11:22 SACK REPAIRER CPT-72417 Venipuncture Draw Fee 09:20:49 SACK REPAIRER CPT-09041 Venipuncture Draw Fee 16:52:15 SACK REPAIRER CPT-02571 Venipuncture Draw Fee 10:37:24 SACK REPAIRER CPT-10525 Venipuncture Draw Fee 08:21:21 SACK REPAIRER CPT-39758 Venipuncture Draw Fee 08:30:20 SACK REPAIRER CPT-93213 Venipuncture Draw Fee 14:53:21 SACK REPAIRER CPT-93186 Venipuncture Draw Fee 09:40:56 SACK REPAIRER CPT-25172 Venipuncture Draw Fee 10:30:47 SACK REPAIRER CPT-16106 Venipuncture Draw Fee 10:46:17 SACK REPAIRER CPT-39902 Venipuncture Draw Fee 11:12:45 SACK REPAIRER CPT-69761 Venipuncture Draw Fee 09:53:33 SACK REPAIRER CPT-71217 Venipuncture Draw Fee 11:53:51 SACK REPAIRER CPT-75993 Venipuncture Draw Fee 10:33:50 SACK REPAIRER CPT-69785 Venipuncture Draw Fee 10:05:01 SACK REPAIRER CPT-56610 Venipuncture Draw Fee 14:32:52 SACK REPAIRER CPT-54113 Venipuncture Draw Fee 09:46:13 SACK REPAIRER CPT-35624 Venipuncture Draw Fee 11:34:27 SACK REPAIRER CPT-99882 Venipuncture Draw Fee 13:17:16 SACK REPAIRER CPT-33486 Venipuncture Draw Fee 12:05:39 CDT CPT-06847 Venipuncture Draw Fee 12:49:12 CDT CPT-03144 Venipuncture Draw Fee 12:37:18 CDT CPT-51820 Venipuncture Draw Fee 10:57:11 CDT CPT-74180 Venipuncture Draw Fee 13:47:40 CDT CPT-78909 Venipuncture Draw Fee 10:02:17 CDT CPT-12186 TB Tubersol 17:32:32 CDT CPT-OV Office Visit 16:21:53 CDT CPT-OV Office Visit 15:49:22 CDT CPT-OV Office Visit 17:16:31 CDT CPT-OV Office Visit 10:43:31 CDT
--- OUTSIDE RECORDS SUMMARY | 2019-02-09 12:44 | XMS REPORT | Clinical Summary ---
Author Author Renaldo, Florecita Munoz Organization [facility] [place] Address Unknown Phone Unavailable Allergies, Adverse Reactions, [...] PhD Hyperpotassemia GERD 530.81 Resolved Kylie Yokum HOG PUSHER Esophageal reflux Health maintenance exam V70.0 Resolved Adolfo Yates MD Routine general medical examination at a health care facility Anemia 285.9 Resolved Kylie Holt HOG PUSHER Anemia, unspecified Personal history of malignant neoplasm [...] Sebaceous cyst, scalp 706.2 Resolved Kylie Holt HOG PUSHER Sebaceous cyst Cervical lymphadenopathy, anterior, left 785.6 Resolv ed Kylie Holt HOG PUSHER Enlargement of lymph nodes Need for prophylactic vaccination and inoculation against in fluenza V04.81 Resolved Adam Yates MD Need for prophylactic vaccination and inoculation against influenza Preventive health care V70.0 Active Kylie Holt HOG PUSHER Routine general medical examination at a health care facility Thyroid nodule, left 241.0 Active Kylie Gonzalez PRN Nontoxic uninodular goiter Screening mammogram V76.12 Active Kylie Holt AP RN Other screening mammogram Mandy 706.2 Active Adam Yates MD Sebaceous cyst ABDOMINAL PAIN, RIGHT LOWER QUADRANT ICD-789.03 Inactive Kina Joshua HOG PUSHER ADENOCARCINOMA, COLON, 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 Dick Yates MD ABDOMINAL PAIN, GENERALIZED ICD-789.07 Inactive Hope Benavidez MD PhD FEVER UNSPECIFIED ICD-780.60 Inactive Hope cohn MD PhD UNSPECIFIED VENOUS INSUFFICIENCY ICD-459.81 Acton ctive Adam Yates MD ADENOCARCINOMA, 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 Inac tive Hope Benavidez MD PhD Hyperkalemia ICD-276.7 Inactive Hope Benavidez MD PhD GERD ICD-530.81 Inactive Kylie Holt HOG PUSHER 2015 Health maintenance exam ICD-V70.0 Bam Yates MD Anemia ICD-285.9 Inactive Kylie Holt HOG PUSHER 07/24 Weakness ICD-780.79 Inactive Hope Benavidez MD [...] cyst, scalp ICD-706.2 Inactive Tracy shubham Yanet HOG PUSHER Cervical lymphadenopathy, anterior, left ICD-785.6 Inactive Kylie Holt HOG PUSHER Need for prophylactic vaccination and inoculation against in fluenza ICD-V04.81 Bam Yates MD Medication List Medication Instructions Start Date Stop Date Generic Name NDC Status Provider Patient Instruction VITAMIN D3 2000 UNIT ORAL CAPS Melaleuca-One daily CHOLECALCIFEROL 54955600473 Active Kylie Yokum HOG PUSHER Active PROBIOTIC DAILY ORAL CAPS Take one daily PROBIOTIC PRODUCT 25180284906 Active Kylie Holt HOG PUSHER Active IRON 325 (65 FE) MG TABS 1 every other day FERR OUS SULFATE 93903091773 No Longer Active Kylie Holt HOG PUSHER Active FLORANEX PACK 1 pack three times daily, for bowel health LACTOBACILLUS 04271771468 No Longer Active Kylie Holt HOG PUSHER Active LOMOTIL 2.5-0.025 MG TABS 1 tab by mouth prn 4 DIPHENOXYLATE-ATROPINE 20648638048 No Longer Active Kylie Lundum HOG PUSHER Active MAGNESIUM GLUCONATE 250 MG TABS 1 tab tid 4 MAGNESIUM GLUCONATE 66804379412 No Longer Active Kylie Holt HOG PUSHER Active CYANOCOBALAMIN 1000 MCG/ML INJ SOLN 1 injection every 2 weeks 20 20/01/03 CYANOCOBALAMIN 57516259675 No Longer Active Kylie Holt HOG PUSHER Active ATENOLOL 25 MG ORAL TABS 1/2 pill by mouth daily, for headac hes, blood pressure ATENOLOL 05762008874 Active Kylie Lundum HOG PUSHER Active PROPRANOLOL HCL 80 MG TABS 1 tab tue. and thur. 04/10 PROPRANOLOL HCL 36604556214 No Longer Active Hope Benavidez MD PhD A ctive VITAMIN D3 4000 IU 1 tab 3 times daily VITAMIN D3 4000 IU No Longer Active Hope Benavidez MD PhD Active BACTRIM DS 800-160 MG TABS 1 pill by mouth twice daily, for UTI SULFAMETHOXAZOLE-TRIMETHOPRIM 44447324416 No Longer Active A attila Benavidez MD PhD Active PROLIA 60 MG/ML SOLN 1 shot every 6 months for osteoprosis DENOSUMAB 81051655745 Active Hope Benavidez MD PhD Active CALCIUM + D + K 750-500-40 MG-UNT-MCG TABS 1 tab by mouth tw ice daily CALCIUM-VITAMIN D-VITAMIN K 73879868976 Active Hope landers MD PhD Active DAILY VALUE MULTIVITAMIN TABS 1 tab by mouth twice daily MULTIPLE VITAMIN 46569899412 Active Hope Benavidez MD PhD Active FISH OIL 306 MG CAPS 1 tab by mouth three times daily OMEGA-3 FATTY ACIDS 75610010398 Active Hope Benavidez MD PhD Active LUTEIN 10 MG TABS 1 tab daily LUTEIN 38406230686 Act cash Hope Benavidez MD PhD Active TRIAMTERENE-HCTZ 37.5-25 MG TABS 1 tab by mouth daily TRIAMTERENE-HCTZ 02641978113 Active Kylieshubham Holt HOG PUSHER Active CYCLOBENZAPRINE HCL 10 MG TABS 1 tablet by mouth three times daily as needed for headaches CYCLOBENZAPRINE HCL 47085090269 No Longe r Active Adam Yates MD Active OMEPRAZOLE 20 MG CPDR 1 tablet by mouth daily for GERD OMEPRAZOLE 77481876816 No Longer Active Adam Yates MD A ctive ZOFRAN 8 MG TABS 1 tab by mouth every 12 hours prn 201 05/16/09 ONDANSETRON HCL 65780149607 No Longer Active Adam Yates MD Active PHENADOZ 25 MG SUPP 1 every 4 hrs. PRN PROMETHA ZINE HCL 73193075054 No Longer Active Adam Yates MD Active POTASSIUM CHLORIDE 20 MEQ PACK by mouth twice a day prn POTASSIUM CHLORIDE 91814171939 No Longer Active Adam Yates MD Active PROMETHAZINE HCL 25 MG TABS 1 Q. 4 hr. PRN PROM ETHAZINE HCL 12560587271 No Longer Active Adam Yates MD Active INNOPRAN XL 120 MG [id number] Take one by mouth daily 2 PROPRANOLOL HCL SR BEADS 91059296837 No Longer Active Adam Yates MD A ctive FLAGYL 500 MG TABS 1 pill by mouth three times daily, for diarrh ea METRONIDAZOLE 27318717213 No Longer Active Hope Benavidez MD PhD Active DYAZIDE 37.5-25 MG CAPS 1 qd TRIAMTERENE-HC TZ 24605649311 No Longer Active Hope Benavidez MD PhD Active PROZAC 20 MG CAPS 1 q d FLUOXETINE HCL 58400 404824 No Longer Active Hope Benavidez MD PhD Active SIMVASTATIN 40 MG TABS 1 qd SIMVASTATIN 004 84147658 No Longer Active Adam Yates MD Active MELOXICAM 15 MG TABS 1 qd MELOXICAM 4714215 5019 No Longer Active Adam Yates MD Active IMODIUM A-D 2 MG TABS 2 onset at diarrhea and prn. LOPERAMIDE HCL 46370319128 Active Hope Benavidez MD PhD Active EXCEDRIN EXTRA STRENGTH 250-250-65 MG TABS 1-2 q6h PRN headache 201 04/16/21 [id number] 67685431799 Active Hope Benavidez MD PhD Active FLAGYL 500 MG TABS 1 qid METRONIDAZOLE 72096 326500 No Longer Active Adam Yates MD Active LEVAQUIN 750 MG TABS 1 qd LEVOFLOXACIN 5486 7179117 No Longer Active Adam Yates MD Active ADULT ASPIRIN LOW STRENGTH 81 MG TBDP 1 qd A SPIRIN 54192079328 Active Hope Benavidez MD PhD Active LEVAQUIN 750 MG TABS 1 qd LEVAQUIN 750 MG T ABS 469627 LEVOFLOXACIN Inactive FLAGYL 500 MG TABS 1 qid FLAGYL 500 MG TABS 970325 METRONIDAZOLE Inactive MELOXICAM 15 MG TABS 1 qd MELOXICAM 15 MG T ABS 000201 MELOXICAM Inactive SIMVASTATIN 40 MG TABS 1 qd SIMVASTATIN 40 MG TABS 078778 SIMVASTATIN Inactive PROZAC 20 MG CAPS 1 q d PROZAC 20 MG CAPS 31 0385 FLUOXETINE HCL Inactive DYAZIDE 37.5-25 MG CAPS 1 qd DYAZIDE 37.5 -25 MG CAPS 471219 TRIAMTERENE-HCTZ Inactive INNOPRAN XL 120 MG [id number] Take one by mouth daily 2 INNOPRAN XL 120 MG [id number] PROPRANOLOL HCL SR BEADS Inactive PROMETHAZINE HCL 25 MG TABS 1 Q. 4 hr. PRN PROMETHAZINE HCL 25 MG TABS 877135 PROMETHAZINE HCL Inactive POTASSIUM CHLORIDE 20 MEQ PACK by mouth twice a day prn POTASSIUM CHLORIDE 20 MEQ PACK 614256 POTASSIUM CHLORIDE Inactive PHENADOZ 25 MG SUPP 1 every 4 hrs. PRN PHENADOZ 2 5 MG SUPP 466396 PROMETHAZINE HCL Inactive ZOFRAN 8 MG TABS 1 tab by mouth every 12 hours prn 201 05/16/09 ZOFRAN 8 MG TABS 407024 ONDANSETRON HCL Inactive OMEPRAZOLE 20 MG CPDR 1 tablet by mouth daily for GERD OMEPRAZOLE 20 MG CPDR 053226 OMEPRAZOLE Inactive CYCLOBENZAPRINE HCL 10 MG TABS 1 tablet by mouth three times daily as needed for headaches CYCLOBENZAPRINE HCL 10 MG TABS 839004 CYCLOBENZAPRINE HCL Inactive VITAMIN D3 4000 IU 1 tab 3 times daily VITAMIN D3 4000 IU Inactive PROPRANOLOL HCL 80 MG TABS 1 tab tue. and thur. 04/10 PROPRANOLOL HCL 80 MG TABS 767882 PROPRANOLOL HCL Inactive CYANOCOBALAMIN 1000 MCG/ML INJ SOLN 1 injection every 2 weeks 20 20/01/03 CYANOCOBALAMIN 1000 MCG/ML INJ SOLN 353410 CYANOCOBALAM IN Inactive MAGNESIUM GLUCONATE 250 MG TABS 1 tab tid 4 MAGNESIUM GLUCONATE 250 MG TABS 254963 MAGNESIUM GLUCONATE Inactive LOMOTIL 2.5-0.025 MG TABS 1 tab by mouth prn 4 LOMOTIL 2.5- 0.025 MG TABS 5273282 DIPHENOXYLATE-ATROPINE Inactive FLORANEX PACK 1 pack three times daily, for bowel health FLORANEX PACK LACTOBACILLUS Inactive IRON 325 (65 FE) MG TABS 1 every other day IRON 325 (65 FE) MG TABS 099089 FERROUS SULFATE Inactive FLAGYL 500 MG TABS 1 pill by mouth three times daily, for diarrh ea FLAGYL 500 MG TABS 788634 METRONIDAZOLE Inactive BACTRIM DS 800-160 MG TABS 1 pill by mouth twice daily, for UTI BACTRIM DS 800-160 MG TABS 668685 SULFAMETHOXAZOLE-TRIM ETHOPRIM Inactive Advance Directives Directive Description [...] Panel - Chemistry sodium, serum 142 mmol/L 520-634 6126/04/20 carbon dioxide, venous blood 34.7 mmol/L 21.0-32 [...] ... - Chemistry sodium, serum 139 mmol/L 687-533 6106/10/20 carbon dioxide, venous blood 32.2 mmol/L 21.0-32 [...] - Chemi stry cholesterol, serum 200 mg/dL 122-529 0088/11/22 triglyceride, serum, fasting 129 mg/dL 30-200 HDL cholesterol, serum 56 mg/dL 32-96 LDL cholesterol, serum 118 mg/dL 0-130 calcium, serum 9.0 mg/dL 8.5-10.1 Lab Report: MicroAlb Random w/creat/6517 - Urinalysis microalbumin/total urine volume 8 mg/L Units converted. See lab report for original value. microalbumin/creatinine ratio, urine 15 MCG/MG CREAT mg/L <30 Encounters Code Encounter Date Provider Facility CPT-74832 Level 3 New Patient 16:22:01 [employer]LECT[employer]STRU[employer] PROJECT MANAGER Adam Yates MD [facility] CPT-35670 Level 4 Est. Patient 17:00:48 CDT [facility] CPT-07925 Level 3 Est. Patient 13:15:54 CDT [facility] CPT-19981 Level 3 Est. Patient 09:10:11 CDT [facility] CPT-[facility]69 Level 4 Est. Patient 12:08:30 ELECTRICAL [employer]STRUCTION PROJECT MANAGER Hope cohn MD [facility] CPT-59343 Level 4 Est. Patient 19:08:42 ELECTRICAL [employer]STRUCTION PROJECT MANAGER Hope cohn MD [facility] CPT-62411 Level 4 Est. Patient 20:04:51 CDT Hope cohn MD [facility] CPT-60106 Level 3 New Patient 01:46:11 ELECTRICAL [employer]STRUCTION PROJECT MANAGER Hope landers MD PhD [facility] Procedures Code Procedure Name Date Entry Date Standard Desc ription CPT-J0897 Prolia 60 mg 14:14:16 [employer]LECT[employer] PROJECT MANAGER CPT-94580 Abx/Therapy Injection 14:14:15 ELECTRICAL [employer]STRUCTION PROJECT MANAGER CPT-79110 Lipid - LAB USE ONLY 10:01:52 ELECTRICAL [employer]STRUCTION PROJECT MANAGER 2 CPT-59235 Calcium - LAB USE ONLY 10:01:51 ELECTRICAL [employer]STRUCTION PROJECT MANAGER CPT-23372 Venipuncture Draw Fee 10:01:51 ELECTRICAL [employer]STRUCTION PROJECT MANAGER CPT-LR Lesion Removal 16:22:01 ELECTRICAL [employer]STRUCTION PROJECT MANAGER CPT-11101 TSH - LAB USE ONLY 14:26:02 CDT CPT-14781 CMP - LAB USE ONLY 14:26:01 CDT CPT-33567 CBC with Diff - LAB USE ONLY 14:26:01 CDT 2 CPT-91320 Venipuncture Draw Fee 14:26:01 CDT CPT-70675 First Vx - Ix admin for Medicare patients 13:27:08 CDT CPT-93482 Fluzone High-Dose Intramuscular Suspension 11/26 13:27:08 CDT CPT-G0438 Initial Annual Wellness Exam 14:19:57 CD T CPT-G0009 Administration of Pneumococcal Vaccine 9 11:36:25 CDT CPT-08728 Prevnar 13 Intramuscular Suspension 1 1:36:25 CDT CPT-54986 Prevnar 13 Intramuscular Suspension 1 0:40:58 CDT CPT-J0897 Prolia 60 mg 10:37:16 CDT CPT-89027 Abx/Therapy Injection 10:37:16 CDT CPT-J0897 Prolia 60 mg 16:09:34 ELECTRICAL [employer]STRUCTION PROJECT MANAGER CPT-J0897 Prolia 60 mg 11:10:35 ELECTRICAL [employer]STRUCTION PROJECT MANAGER CPT-32995 Abx/Therapy Injection 11:10:35 ELECTRICAL [employer]STRUCTION PROJECT MANAGER CPT-000 Give Appropriate Flu Vaccine 17:01:15 ELECTRICAL [employer]STRUCTION PROJECT MANAGER 2 CPT-23534 Fluzone High Dose (65+) 15:03:08 ELECTRICAL [employer]STRUCTION PROJECT MANAGER 02/15 CPT-74485 Immunization Single Admin 15:03:08 ELECTRICAL [employer]STRU[employer] PROJECT MANAGER 2014 CPT-OV Office Visit 15:58:06 CDT CPT-J0897 Prolia 60 mg 08:45:38 CDT CPT-16928 Abx/Therapy Injection 08:45:38 CDT CPT-J3420 Vitamin B12 1000mcg (Cyanocobalamin) 09:26:20 ELECTRICAL [employer]CTION PROJECT MANAGER CPT-29919 Abx/Therapy Injection 09:26:20 ELECTRICAL CONSTRUCTION PROJECT MANAGER CPT-J3420 Vitamin B12 1000mcg (Cyanocobalamin) 09:44:40 ELECTRICAL [employer]STRUCTION PROJECT MANAGER CPT-55449 Abx/Therapy Injection 09:44:40 ELECTRICAL CONSTRUCTION PROJECT MANAGER CPT-J3420 Vitamin B12 1000mcg (Cyanocobalamin) 09:15:54 ELECTRICAL CONSTRUCTION PROJECT MANAGER CPT-16845 Abx/Therapy Injection 09:15:54 ELECTRICAL CONSTRUCTION PROJECT MANAGER CPT-J3420 Vitamin B12 1000mcg (Cyanocobalamin) 09:46:44 ELECTRICAL CONSTRUCTION PROJECT MANAGER CPT-29349 Abx/Therapy Injection 09:46:44 ELECTRICAL CONSTRUCTION PROJECT MANAGER CPT-J3420 Vitamin B12 1000mcg (Cyanocobalamin) 09:47:34 ELECTRICAL CONSTRUCTION PROJECT MANAGER CPT-33928 Abx/Therapy Injection 09:47:34 ELECTRICAL CONSTRUCTION PROJECT MANAGER CPT-J3420 Vitamin B12 1000mcg (Cyanocobalamin) 14:35:50 ELECTRICAL CONSTRUCTION PROJECT MANAGER CPT-J3420 Vitamin B12 1000mcg (Cyanocobalamin) 09:25:05 ELECTRICAL CONSTRUCTION PROJECT MANAGER CPT-31927 Abx/Therapy Injection 09:25:05 ELECTRICAL CONSTRUCTION PROJECT MANAGER CPT-G0008 Administration of Influenza Virus Vaccine 13:36:47 CDT CPT-08772 Fluzone High-Dose Intramuscular Suspension 11/15 13:36:47 CDT CPT-J0897 Prolia 60 mg 08:50:41 CDT CPT-61743 Abx/Therapy Injection 08:50:41 CDT CPT-33233 Bone Density 12:06:12 CDT CPT-90533 Bone Density 08:54:40 CDT CPT-OV Office Visit 15:37:02 CDT CPT-35752 Postop F/U Visit 15:47:49 CDT CPT-03780 Postop F/U Visit 15:21:02 CDT CPT-TCMH Transitional Care Mgmt-High 07:52:27 CDT 20 20/06/01 CPT-55807 Venipuncture Draw Fee 13:51:18 CDT CPT-80162 Venipuncture Draw Fee 10:14:55 ELECTR[employer]CTION PROJECT MANAGER CPT-84249 Venipuncture Draw Fee 13:39:45 ELECTRICAL [employer]STRUCTION PROJECT MANAGER CPT-OV Office Visit 15:11:22 ELECTRICAL [employer]STRUCTION PROJECT MANAGER CPT-72536 Venipuncture Draw Fee 09:20:49 ELECTRICAL [employer]STRUCTION PROJECT MANAGER CPT-01056 Venipuncture Draw Fee 16:52:15 ELECTRICAL [employer]STRUCTION PROJECT MANAGER CPT-43492 Venipuncture Draw Fee 10:37:24 ELECTRICAL [employer]STRUCTION PROJECT MANAGER CPT-87935 Venipuncture Draw Fee 08:21:21 ELECTRICAL CONSTRUCTION PROJECT MANAGER CPT-55372 Venipuncture Draw Fee 08:30:20 ELECTRICAL CONSTRUCTION PROJECT MANAGER CPT-17088 Venipuncture Draw Fee 14:53:21 ELECTRICAL CONSTRUCTION PROJECT MANAGER CPT-07757 Venipuncture Draw Fee 09:40:56 ELECTRICAL [employer]STRUCTION PROJECT MANAGER CPT-99955 Venipuncture Draw Fee 10:30:47 ELECTRICAL CONSTRUCTION PROJECT MANAGER CPT-83676 Venipuncture Draw Fee 10:46:17 ELECTRICAL CONSTRUCTION PROJECT MANAGER CPT-21296 Venipuncture Draw Fee 11:12:45 ELECTRICAL CONSTRUCTION PROJECT MANAGER CPT-85994 Venipuncture Draw Fee 09:53:33 ELECTRICAL CONSTRUCTION PROJECT MANAGER CPT-14121 Venipuncture Draw Fee 11:53:51 ELECTRICAL CONSTRUCTION PROJECT MANAGER CPT-85929 Venipuncture Draw Fee 10:33:50 ELECTRICAL [employer]STRUCTION PROJECT MANAGER CPT-61781 Venipuncture Draw Fee 10:05:01 ELECTRICAL [employer]STRUCTION PROJECT MANAGER CPT-00487 Venipuncture Draw Fee 14:32:52 ELECTRICAL [employer]STRUCTION PROJECT MANAGER CPT-41063 Venipuncture Draw Fee 09:46:13 ELECTRICAL CONSTRUCTION PROJECT MANAGER CPT-40955 Venipuncture Draw Fee 11:34:27 ELECTRICAL CONSTRUCTION PROJECT MANAGER CPT-26513 Venipuncture Draw Fee 13:17:16 ELECTRICAL CONSTRUCTION PROJECT MANAGER CPT-92988 Venipuncture Draw Fee 12:05:39 CDT CPT-29760 Venipuncture Draw Fee 12:49:12 CDT CPT-48171 Venipuncture Draw Fee 12:37:18 CDT CPT-25732 Venipuncture Draw Fee 10:57:11 CDT CPT-66851 Venipuncture Draw Fee 13:47:40 CDT CPT-15808 Venipuncture Draw Fee 10:02:17 CDT CPT-16000 TB Tubersol 17:32:32 CDT CPT-OV Office Visit 16:21:53 CDT CPT-OV Office Visit 15:49:22 CDT CPT-OV Office Visit 17:16:31 CDT CPT-OV Office Visit 10:43:31 CDT
--- OUTSIDE RECORDS SUMMARY | 2019-02-09 12:44 | XMS REPORT | Clinical Summary ---
Author Author Renaldo, Florecita Munoz Organization [facility] [employer] Address Unknown Phone Unavailable Allergies, Adverse Reactions, [...] PhD Hyperpotassemia GERD 530.81 Resolved Kylie Yokum MILL DRESSER Esophageal reflux Health maintenance exam V70.0 Resolved Adolfo Yates MD Routine general medical examination at a health care facility Anemia 285.9 Resolved Kylie Holt MILL DRESSER Anemia, unspecified Personal history of malignant neoplasm of large intestine V10.05 Active Adam Yates MD Personal history of malignant neoplasm of large intestine Hypomagnesemia 275.2 Resolved Kylie Holt MILL DRESSER Disorders of magnesium metabolism Weakness 780.79 Resolved [...] Sebaceous cyst, scalp 706.2 Resolved Kylie Yokum MILL DRESSER Sebaceous cyst Cervical lymphadenopathy, anterior, left 785.6 Resolv ed Kylie Yokum MILL DRESSER Enlargement of lymph nodes Need for prophylactic vaccination and inoculation against in fluenza V04.81 Resolved Adam Yates MD Need for prophylactic vaccination and inoculation against influenza Preventive health care V70.0 Active Kylie Yokum MILL DRESSER Routine general medical examination at a health care facility Thyroid nodule, left 241.0 Active Kylie Yokum A PRN Nontoxic uninodular goiter Screening mammogram V76.12 Active Kylie Yogabbium AP RN Other screening mammogram Mandy 706.2 Resolved Kylie Yokum MILL DRESSER Sebaceous cyst Colon cancer, ascending 153.6 Resolved Kylie Yok um MILL DRESSER Malignant neoplasm of ascending colon Foot pain, left 729.5 Active Sulema Naff PATIENT CASE MANAGER Pain in limb Splinter 919.6 Active Kylie Yokum MILL DRESSER Superficial foreign body (splinter) of other, multiple, and unspecified sites, without major open wound and without mention of infection ABDOMINAL PAIN, RIGHT LOWER QUADRANT ICD-789.03 Inactive Kina Joshua MILL DRESSER ADENOCARCINOMA, COLON, 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 Dick Yates MD FEVER UNSPECIFIED ICD-780.60 Inactive Hope cohn MD PhD UNSPECIFIED VENOUS INSUFFICIENCY ICD-459.81 [place] ctive Adam Yates MD ADENOCARCINOMA, 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 Inac abdelrahman Benavidez MD PhD Hyperkalemia ICD-276.7 Inactive Hope Benavidez MD PhD GERD ICD-530.81 Inactive Kylie Yanet MILL DRESSER 2015 Health maintenance exam ICD-V70.0 Bam Yates MD Anemia ICD-285.9 Inactive Kylie Escalonapari MILL DRESSER 07/24 Hypomagnesemia ICD-275.2 Inactive Kylie Holt MILL DRESSER Weakness ICD-780.79 Inactive Hope Benavidez MD P Aftercare following surgery of the teeth,oral cavity a nd digestive system, NEC ICD-V58.75 Inactive Adam Yates MD ABDOMINAL PAIN, GENERALIZED ICD-789.07 Inactive Hope Benavidez MD PhD Asymptomatic postmenopausal status (age-related) (natural) I CD-V49.81 Inactive Hope Benavidez MD PhD Diarrhea, functional ICD-564.5 Inactive Selena Yates MD Dysuria ICD-788.1 Inactive Hope Benavidez MD PhD 201 05/19/01 Adenocarcinoma, ascending colon ICD-153.6 Inac abdelrahman Yates MD Sebaceous cyst, scalp ICD-706.2 Inactive Tracy Escalonagabbium MILL DRESSER Cervical lymphadenopathy, anterior, left ICD-785.6 Inactive Kylie Holt MILL DRESSER Need for prophylactic vaccination and inoculation against in fluenza ICD-V04.81 Inactive Adam Yates MD Mandy ICD-706.2 Inactive Kylie Lundum MILL DRESSER 07/20 Colon cancer, ascending ICD-153.6 Inactive K umang Holt MILL DRESSER Colon cancer ICD-153.9 Inactive Adam luna MD Medication List Medication Instructions Start Date Stop Date Generic Name NDC Status Provider Patient Instruction COQ10 100 MG ORAL CAPS 1 daily COENZYME Q10 605352101 20 Active LETY Nation Active VITAMIN D3 2000 UNIT ORAL CAPS Melaleuca-One daily CHOLECALCIFEROL 96778558923 Active Kylie Lundum MILL DRESSER Active PROBIOTIC DAILY ORAL CAPS Take one daily PROBIOTIC PRODUCT 44978765437 Active Kylie Lundum MILL DRESSER Active IRON 325 (65 FE) MG TABS 1 every other day FERR OUS SULFATE 88480406995 No Longer Active Kylie Lundum MILL DRESSER Active FLORANEX PACK 1 pack three times daily, for bowel health LACTOBACILLUS 82142184245 No Longer Active Kylie Lundum MILL DRESSER Active LOMOTIL 2.5-0.025 MG TABS 1 tab by mouth prn 4 DIPHENOXYLATE-ATROPINE 40185628443 No Longer Active Kylie Kevonum MILL DRESSER Active MAGNESIUM GLUCONATE 250 MG TABS 1 tab tid 4 MAGNESIUM GLUCONATE 14410660850 No Longer Active Kylie Yokum MILL DRESSER Active CYANOCOBALAMIN 1000 MCG/ML INJ SOLN 1 injection every 2 weeks 20 20/01/03 CYANOCOBALAMIN 24442822430 No Longer Active Kylie Lundum MILL DRESSER Active ATENOLOL 25 MG ORAL TABS 1/2 pill by mouth daily, for headac hes, blood pressure ATENOLOL 48503356956 Active Kylieshubham Holt MILL DRESSER Active PROPRANOLOL HCL 80 MG TABS 1 tab tue. and thur. 04/10 PROPRANOLOL HCL 88871747643 No Longer Active Hope Benavidez MD PhD A ctive VITAMIN D3 4000 IU 1 tab 3 times daily VITAMIN D3 4000 IU No Longer Active Hope Benavidez MD PhD Active BACTRIM DS 800-160 MG TABS 1 pill by mouth twice daily, for UTI SULFAMETHOXAZOLE-TRIMETHOPRIM 20734124586 No Longer Active A attila Benavidez MD PhD Active PROLIA 60 MG/ML SOLN 1 shot every 6 months for osteoprosis DENOSUMAB 64114522704 Active Hope Benavidez MD PhD Active CALCIUM + D + K 750-500-40 MG-UNT-MCG TABS 1 tab by mouth tw ice daily CALCIUM-VITAMIN D-VITAMIN K 71528635970 Active Hope landers MD PhD Active DAILY VALUE MULTIVITAMIN TABS 1 tab by mouth twice daily MULTIPLE VITAMIN 95397018434 Active Hope Benavidez MD PhD Active FISH OIL 306 MG CAPS 1 tab by mouth three times daily OMEGA-3 FATTY ACIDS 64491506109 Active Hope Benavidez MD PhD Active LUTEIN 10 MG TABS 1 tab daily LUTEIN 44260061359 Act cash Hope Benavidez MD PhD Active TRIAMTERENE-HCTZ 37.5-25 MG TABS 1 tab by mouth daily TRIAMTERENE-HCTZ 02069449071 Active Kylie Holt APRN Active CYCLOBENZAPRINE HCL 10 MG TABS 1 tablet by mouth three times daily as needed for headaches CYCLOBENZAPRINE HCL 59448561883 No Longe r Active Adam Yates MD Active OMEPRAZOLE 20 MG CPDR 1 tablet by mouth daily for GERD OMEPRAZOLE 17496279527 No Longer Active Adam Yates MD A ctive ZOFRAN 8 MG TABS 1 tab by mouth every 12 hours prn 201 05/16/09 ONDANSETRON HCL 79481114152 No Longer Active Adam Yates MD Active PHENADOZ 25 MG SUPP 1 every 4 hrs. PRN PROMETHA ZINE HCL 91713765684 No Longer Active Adam Yates MD Active POTASSIUM CHLORIDE 20 MEQ PACK by mouth twice a day prn POTASSIUM CHLORIDE 08607776699 No Longer Active Adam Yates MD Active PROMETHAZINE HCL 25 MG TABS 1 Q. 4 hr. PRN PROM ETHAZINE HCL 03881245898 No Longer Active Adam Yates MD Active INNOPRAN XL 120 MG LO64I-LNO Take one by mouth daily 2 PROPRANOLOL HCL SR BEADS 54305785601 No Longer Active Adam Yates MD A ctive FLAGYL 500 MG TABS 1 pill by mouth three times daily, for diarrh ea METRONIDAZOLE 01611529275 No Longer Active Hope Benavidez MD PhD Active DYAZIDE 37.5-25 MG CAPS 1 qd TRIAMTERENE-HC TZ 32375527816 No Longer Active Hope Benavidez MD PhD Active PROZAC 20 MG CAPS 1 q d FLUOXETINE HCL 16740 414668 No Longer Active Hope Benavidez MD PhD Active SIMVASTATIN 40 MG TABS 1 qd SIMVASTATIN 004 31960234 No Longer Active Adam Yates MD Active MELOXICAM 15 MG TABS 1 qd MELOXICAM 8959544 3067 No Longer Active Adam Yates MD Active IMODIUM A-D 2 MG TABS 2 onset at diarrhea and prn. LOPERAMIDE HCL 05711207393 Active Hope Benavidez MD PhD Active EXCEDRIN EXTRA STRENGTH 250-250-65 MG TABS 1-2 q6h PRN headache 201 04/16/21 [id number] 64693637550 Active Hope Benavidez MD PhD Active FLAGYL 500 MG TABS 1 qid METRONIDAZOLE 08306 781192 No Longer Active Adam Yates MD Active LEVAQUIN 750 MG TABS 1 qd LEVOFLOXACIN 5486 6676303 No Longer Active Adam Yates MD Active ADULT ASPIRIN LOW STRENGTH 81 MG TBDP 1 qd A SPIRIN 83189413162 Active Hope Benavidez MD PhD Active LEVAQUIN 750 MG TABS 1 qd LEVAQUIN 750 MG T ABS 657463 LEVOFLOXACIN Inactive FLAGYL 500 MG TABS 1 qid FLAGYL 500 MG TABS 499261 METRONIDAZOLE Inactive MELOXICAM 15 MG TABS 1 qd MELOXICAM 15 MG T ABS 944384 MELOXICAM Inactive SIMVASTATIN 40 MG TABS 1 qd SIMVASTATIN 40 MG TABS 533654 SIMVASTATIN Inactive PROZAC 20 MG CAPS 1 q d PROZAC 20 MG CAPS 31 0385 FLUOXETINE HCL Inactive DYAZIDE 37.5-25 MG CAPS 1 qd DYAZIDE 37.5 -25 MG CAPS 518155 TRIAMTERENE-HCTZ Inactive INNOPRAN XL 120 MG [id number] Take one by mouth daily 2 INNOPRAN XL 120 MG [id number] PROPRANOLOL HCL SR BEADS Inactive PROMETHAZINE HCL 25 MG TABS 1 Q. 4 hr. PRN PROMETHAZINE HCL 25 MG TABS 587089 PROMETHAZINE HCL Inactive POTASSIUM CHLORIDE 20 MEQ PACK by mouth twice a day prn POTASSIUM CHLORIDE 20 MEQ PACK 8443989 POTASSIUM CHLORIDE Inactive PHENADOZ 25 MG SUPP 1 every 4 hrs. PRN PHENADOZ 2 5 MG SUPP 681239 PROMETHAZINE HCL Inactive ZOFRAN 8 MG TABS 1 tab by mouth every 12 hours prn 201 05/16/09 ZOFRAN 8 MG TABS 850907 ONDANSETRON HCL Inactive OMEPRAZOLE 20 MG CPDR 1 tablet by mouth daily for GERD OMEPRAZOLE 20 MG CPDR 638662 OMEPRAZOLE Inactive CYCLOBENZAPRINE HCL 10 MG TABS 1 tablet by mouth three times daily as needed for headaches CYCLOBENZAPRINE HCL 10 MG TABS 594885 CYCLOBENZAPRINE HCL Inactive VITAMIN D3 4000 IU 1 tab 3 times daily VITAMIN D3 4000 IU Inactive PROPRANOLOL HCL 80 MG TABS 1 tab tue. and thur. 04/10 PROPRANOLOL HCL 80 MG TABS 212483 PROPRANOLOL HCL Inactive CYANOCOBALAMIN 1000 MCG/ML INJ SOLN 1 injection every 2 weeks 20 20/01/03 CYANOCOBALAMIN 1000 MCG/ML INJ SOLN 890236 CYANOCOBALAM IN Inactive MAGNESIUM GLUCONATE 250 MG TABS 1 tab tid 4 MAGNESIUM GLUCONATE 250 MG TABS 550583 MAGNESIUM GLUCONATE Inactive LOMOTIL 2.5-0.025 MG TABS 1 tab by mouth prn 4 LOMOTIL 2.5- 0.025 MG TABS 5641544 DIPHENOXYLATE-ATROPINE Inactive FLORANEX PACK 1 pack three times daily, for bowel health FLORANEX PACK LACTOBACILLUS Inactive IRON 325 (65 FE) MG TABS 1 every other day IRON 325 (65 FE) MG TABS 699688 FERROUS SULFATE Inactive FLAGYL 500 MG TABS 1 pill by mouth three times daily, for diarrh ea FLAGYL 500 MG TABS 033792 METRONIDAZOLE Inactive BACTRIM DS 800-160 MG TABS 1 pill by mouth twice daily, for UTI BACTRIM DS 800-160 MG TABS 010443 SULFAMETHOXAZOLE-TRIM ETHOPRIM Inactive Advance Directives Directive Description [...] 11 .0-15.0 platelet count 157 THOUSAND/UL 10*3/mm3 965-781 3300/04/20 mean platelet volume 8.9 fL 7.5-12.5 Lab Report: CBC W/DIFF, Comp. Metabolic Panel, Thyroid Stimulating Hormo ... - Chemistry sodium, serum 139 mmol/L 858-668 3183/10/20 carbon dioxide, venous blood 32.2 mmol/L 21.0-32 [...] 11 .6-14.8 platelet count 180 10^3/MM^3 10*3/mm3 154-347 0658/10/20 erythrocyte (RBC) count 4.69 10^6/MM^3 10*6/mm3 4.04-5.4 [...] - Chemi stry cholesterol, serum 200 mg/dL 532-406 1988/11/22 triglyceride, serum, fasting 129 mg/dL 30-200 HDL cholesterol, serum 56 mg/dL 32-96 LDL cholesterol, serum 118 mg/dL 0-130 calcium, serum 9.0 mg/dL 8.5-10.1 Lab Report: MicroAlb Random w/creat/6517 - Urinalysis microalbumin/total urine volume 8 mg/L Units converted. See lab report for original value. microalbumin/creatinine ratio, urine 15 MCG/MG CREAT mg/L <30 Encounters Code Encounter Date Provider Facility CPT-92239 Level 3 Est. Patient 17:54:48 CDT Kylie byod [facility] CPT-18289 Level 3 Est. 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 Patient 17:00:48 CDT Kylie Lund [facility] CPT-04338 Level 3 Est. Patient 13:15:54 CDT Kylie Lund [facility] CPT-80039 Level 3 Est. Patient 09:10:11 CDT Kylie Kevon [facility] CPT-30460 Level 4 Est. Patient 12:08:30 SUPERVISOR [employer]ORAT[employer] Hope cohn MD [facility] CPT-25175 Level 4 Est. Patient 19:08:42 SUPERVISOR [employer]TO[employer]ORAT[employer] Hope cohn MD [facility] CPT-38502 Level 4 Est. Patient 20:04:51 CDT Hope cohn MD [facility] CPT-05676 Level 3 New Patient 01:46:11 SUPERVISOR [employer]AT[employer] Hope landers MD PhD [facility] Procedures Code Procedure Name Date Entry Date Standard Desc ription CPT-G0439 [facility] Annual Wellness Exam 17:54:53 CDT CPT-11951 Foot, left, comp min 3V - XRAY USE ONLY 12:22:49 CDT CPT-G0009 Administration of Pneumococcal Vaccine 3 12:18:00 CDT CPT-38278 Pneumovax 23 Injection Injectable 25 MCG /0.5ML 12:18:00 CDT CPT-J0897 Prolia 60 mg 14:14:16 [employer]PER[employer]OR [employer] CPT-21357 Abx/Therapy Injection 14:14:15 [employer]PER[employer]OR [employer] CPT-98943 Lipid - LAB USE ONLY 10:01:52 SUPERVISOR [employer] 2 CPT-95914 Calcium - LAB USE ONLY 10:01:51 SUPERVISOR [employer] CPT-46507 Venipuncture Draw Fee 10:01:51 SUPERVISOR [employer] CPT-LR Lesion Removal 16:22:01 SUPERVISOR [employer] CPT-60710 TSH - LAB USE ONLY 14:26:02 CDT CPT-15081 CMP - LAB USE ONLY 14:26:01 CDT CPT-36385 CBC with Diff - LAB USE ONLY 14:26:01 CDT 2 CPT-43674 Venipuncture Draw Fee 14:26:01 CDT CPT-79646 First Vx - Ix admin for Medicare patients 13:27:08 CDT CPT-87037 Fluzone High-Dose Intramuscular Suspension 11/26 13:27:08 CDT CPT-G0438 Initial Annual Wellness Exam 14:19:57 CD T CPT-G0009 Administration of Pneumococcal Vaccine 9 11:36:25 CDT CPT-98330 Prevnar 13 Intramuscular Suspension 1 1:36:25 CDT CPT-93961 Prevnar 13 Intramuscular Suspension 1 0:40:58 CDT CPT-J0897 Prolia 60 mg 10:37:16 CDT CPT-26381 Abx/Therapy Injection 10:37:16 CDT CPT-J0897 Prolia 60 mg 16:09:34 SUPERVISOR [employer] CPT-J0897 Prolia 60 mg 11:10:35 SUPERVISOR [employer] CPT-18089 Abx/Therapy Injection 11:10:35 SUPERVISOR [employer] CPT-000 Give Appropriate Flu Vaccine 17:01:15 SUPERVISOR [employer]ORAT[employer] 2 CPT-37623 Fluzone High Dose (65+) 15:03:08 SUPERVISOR [employer] 02/15 CPT-09809 Immunization Single Admin 15:03:08 SUPERVISOR [employer] 2014 CPT-OV Office Visit 15:58:06 CDT CPT-J0897 Prolia 60 mg 08:45:38 CDT CPT-07353 Abx/Therapy Injection 08:45:38 CDT CPT-J3420 Vitamin B12 1000mcg (Cyanocobalamin) 09:26:20 SUPERVISOR [employer] CPT-92986 Abx/Therapy Injection 09:26:20 SUPERVISOR [employer]AT[employer] CPT-J3420 Vitamin B12 1000mcg (Cyanocobalamin) 09:44:40 SUPERVISOR [employer]AT[employer] CPT-78295 Abx/Therapy Injection 09:44:40 SUPERVISOR [employer] CPT-J3420 Vitamin B12 1000mcg (Cyanocobalamin) 09:15:54 SUPERVISOR CYTO[employer]ORAT[employer] CPT-29621 Abx/Therapy Injection 09:15:54 SUPERVISOR [employer]AT[employer] CPT-J3420 Vitamin B12 1000mcg (Cyanocobalamin) 09:46:44 SUPERVISOR [employer]TO[employer]AT[employer] CPT-44789 Abx/Therapy Injection 09:46:44 SUPERVISOR [employer] CPT-J3420 Vitamin B12 1000mcg (Cyanocobalamin) 09:47:34 SUPERVISOR [employer] CPT-53572 Abx/Therapy Injection 09:47:34 SUPERVISOR [employer]ORAT[employer] CPT-J3420 Vitamin B12 1000mcg (Cyanocobalamin) 14:35:50 SUPERVISOR [employer]TO[employer]ORAT[employer] CPT-J3420 Vitamin B12 1000mcg (Cyanocobalamin) 09:25:05 SUPERVISOR [employer] CPT-02441 Abx/Therapy Injection 09:25:05 SUPERVISOR [employer] CPT-G0008 Administration of Influenza Virus Vaccine 13:36:47 CDT CPT-38636 Fluzone High-Dose Intramuscular Suspension 11/15 13:36:47 CDT CPT-J0897 Prolia 60 mg 08:50:41 CDT CPT-79747 Abx/Therapy Injection 08:50:41 CDT CPT-23525 Bone Density 12:06:12 CDT CPT-70170 Bone Density 08:54:40 CDT CPT-OV Office Visit 15:37:02 CDT CPT-83592 Postop F/U Visit 15:47:49 CDT CPT-37884 Postop F/U Visit 15:21:02 CDT [facility]PT-[facility] Transitional Care Mgmt-High 07:52:27 CDT 20 20/06/01 CPT-27150 Venipuncture Draw Fee 13:51:18 CDT CPT-92394 Venipuncture Draw Fee 10:14:55 SUPERVISOR [employer] CPT-19546 Venipuncture Draw Fee 13:39:45 SUPERVISOR [employer] CPT-OV Office Visit 15:11:22 SUPERVISOR [employer] CPT-88410 Venipuncture Draw Fee 09:20:49 SUPERVISOR [employer] CPT-97105 Venipuncture Draw Fee 16:52:15 SUPERVISOR [employer] CPT-09735 Venipuncture Draw Fee 10:37:24 SUPERVISOR [employer] CPT-23711 Venipuncture Draw Fee 08:21:21 SUPERVISOR [employer] CPT-27879 Venipuncture Draw Fee 08:30:20 SUPERVISOR [employer] CPT-67348 Venipuncture Draw Fee 14:53:21 SUPERVISOR [employer] CPT-44993 Venipuncture Draw Fee 09:40:56 SUPERVISOR [employer] CPT-30087 Venipuncture Draw Fee 10:30:47 SUPERVISOR [employer] CPT-42478 Venipuncture Draw Fee 10:46:17 SUPERVISOR [employer] CPT-11803 Venipuncture Draw Fee 11:12:45 SUPERVISOR [employer] CPT-73144 Venipuncture Draw Fee 09:53:33 SUPERVISOR [employer] CPT-35655 Venipuncture Draw Fee 11:53:51 SUPERVISOR [employer] CPT-30385 Venipuncture Draw Fee 10:33:50 SUPERVISOR [employer]AT[employer] CPT-34919 Venipuncture Draw Fee 10:05:01 SUPERVISOR [employer] CPT-72741 Venipuncture Draw Fee 14:32:52 SUPERVISOR [employer] CPT-11240 Venipuncture Draw Fee 09:46:13 SUPERVISOR [employer] CPT-21388 Venipuncture Draw Fee 11:34:27 SUPERVISOR [employer] CPT-99344 Venipuncture Draw Fee 13:17:16 SUPERVISOR [employer] CPT-19043 Venipuncture Draw Fee 12:05:39 CDT CPT-38834 Venipuncture Draw Fee 12:49:12 CDT CPT-23545 Venipuncture Draw Fee 12:37:18 CDT CPT-82262 Venipuncture Draw Fee 10:57:11 CDT CPT-86345 Venipuncture Draw Fee 13:47:40 CDT CPT-01912 Venipuncture Draw Fee 10:02:17 CDT CPT-97716 TB Tubersol 17:32:32 CDT CPT-OV Office Visit 16:21:53 CDT CPT-OV Office Visit 15:49:22 CDT CPT-OV Office Visit 17:16:31 CDT CPT-OV Office Visit 10:43:31 CDT
--- OUTSIDE RECORDS SUMMARY | 2019-02-09 12:45 | XMS REPORT | Clinical Summary ---
Author Author Renlado, Florecita Munoz Organization [facility] Address Unknown Phone Unavailable Allergies, Adverse [...] VENOUS INSUFFICIENCY 459.81 Resolved 201 05/09/09 Adam aYtes MD Venous (peripheral) insufficiency, unspe cified CARCINOMA [...] Sebaceous cyst, scalp 706.2 Resolved Kylie Holt REGIONAL CLINICAL DIRECTOR Sebaceous cyst Cervical lymphadenopathy, anterior, left 785.6 Active Kylie Holt REGIONAL CLINICAL DIRECTOR Enlargement of lymph nodes Need for prophylactic vaccination and inoculation against in fluenza V04.81 Active Citlaly Watkins RMA Need for prophylactic vaccination and inoculation against influenza ABDOMINAL PAIN, RIGHT LOWER QUADRANT ICD-789.03 Inactive Kina Joshua REGIONAL CLINICAL DIRECTOR ADENOCARCINOMA, COLON, 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 Dick Yates MD ABDOMINAL PAIN, GENERALIZED ICD-789.07 Inactive Hope Benavidez MD PhD FEVER UNSPECIFIED ICD-780.60 Inactive Hope cohn MD PhD UNSPECIFIED VENOUS INSUFFICIENCY ICD-459.81 [place] ctive Adam Yates MD ADENOCARCINOMA, ASCENDING COLON [...] Sebaceous cyst, scalp ICD-706.2 Inactive Tracy Holt REGIONAL CLINICAL DIRECTOR Medication List Medication Instructions Start Date Stop Date Generic Name NDC Status Provider Patient Instruction LOMOTIL 2.5-0.025 MG TABS 1 tab by mouth prn 4 DIPHENOXYLATE-ATROPINE 60959914693 No Longer Active Kylie Lundum REGIONAL CLINICAL DIRECTOR Active MAGNESIUM GLUCONATE 250 MG TABS 1 tab tid 4 MAGNESIUM GLUCONATE 56366862695 No Longer Active Kylei Escalonakum REGIONAL CLINICAL DIRECTOR Active CYANOCOBALAMIN 1000 MCG/ML INJ SOLN 1 injection every 2 weeks 20 20/01/03 CYANOCOBALAMIN 82819609268 No Longer Active Kylie Holt REGIONAL CLINICAL DIRECTOR Active ATENOLOL 25 MG ORAL TABS 1/2 pill by mouth daily, for headac hes, blood pressure ATENOLOL 25510940977 Active Courtney Zaman REGIONAL CLINICAL DIRECTOR Active PROPRANOLOL HCL 80 MG TABS 1 tab tue. and thur. 04/10 PROPRANOLOL HCL 86645984954 No Longer Active Hope Benavidez MD PhD A ctive IRON 325 (65 FE) MG TABS 1 every other day FERROUS SULFATE 38854626848 Active Hope Benavidez MD PhD Active VITAMIN D3 4000 IU 1 tab 3 times daily VITAMIN D3 4000 IU No Longer Active Hope Benavidez MD PhD Active BACTRIM DS 800-160 MG TABS 1 pill by mouth twice daily, for UTI SULFAMETHOXAZOLE-TRIMETHOPRIM 85689717329 No Longer Active Lisa Benavidez MD PhD Active PROLIA 60 MG/ML SOLN 1 shot every 6 months for osteoprosis DENOSUMAB 94412379668 Active Hope Benavidez MD PhD Active CALCIUM + D + K 750-500-40 MG-UNT-MCG TABS 1 tab by mouth tw ice daily CALCIUM-VITAMIN D-VITAMIN K 04331975547 Active Hope landers MD PhD Active DAILY VALUE MULTIVITAMIN TABS 1 tab by mouth twice daily MULTIPLE VITAMIN 94765050956 Active Hope Benavidez MD PhD Active FISH OIL 306 MG CAPS 1 tab by mouth three times daily OMEGA-3 FATTY ACIDS 10519118868 Active Hope Benavidez MD PhD Active LUTEIN 10 MG TABS 1 tab daily LUTEIN 16046761414 Act cash Hope Benavidez MD PhD Active FLORANEX PACK 1 pack three times daily, for bowel health LACTOBACILLUS 11825367685 Active oHpe Benavidez MD PhD Active TRIAMTERENE-HCTZ 37.5-25 MG TABS 1 tab by mouth daily TRIAMTERENE-HCTZ 81679000179 Active Kylie Holt REGIONAL CLINICAL DIRECTOR Active CYCLOBENZAPRINE HCL 10 MG TABS 1 tablet by mouth three times daily as needed for headaches CYCLOBENZAPRINE HCL 74630359269 No Longe r Active Adam Yates MD Active OMEPRAZOLE 20 MG CPDR 1 tablet by mouth daily for GERD OMEPRAZOLE 04841343480 No Longer Active Adam Yates MD A ctive ZOFRAN 8 MG TABS 1 tab by mouth every 12 hours prn 201 05/16/09 ONDANSETRON HCL 66570560670 No Longer Active Adam Yates MD Active PHENADOZ 25 MG SUPP 1 every 4 hrs. PRN PROMETHA ZINE HCL 08673930479 No Longer Active Adam Yates MD Active POTASSIUM CHLORIDE 20 MEQ PACK by mouth twice a day prn POTASSIUM CHLORIDE 68920626331 No Longer Active Adam Yates MD Active PROMETHAZINE HCL 25 MG TABS 1 Q. 4 hr. PRN PROM ETHAZINE HCL 59596416718 No Longer Active Adam Yates MD Active INNOPRAN XL 120 MG [id number] Take one by mouth daily 2 PROPRANOLOL HCL SR BEADS 27382870161 No Longer Active Adam Yates MD A ctive FLAGYL 500 MG TABS 1 pill by mouth three times daily, for diarrh ea METRONIDAZOLE 40782485489 No Longer Active Hope Benavidez MD PhD Active DYAZIDE 37.5-25 MG CAPS 1 qd TRIAMTERENE-HC TZ 39479251687 No Longer Active Hope Benavidez MD PhD Active PROZAC 20 MG CAPS 1 q d FLUOXETINE HCL 79044 350280 No Longer Active Hope Benavidez MD PhD Active SIMVASTATIN 40 MG TABS 1 qd SIMVASTATIN 004 55139255 No Longer Active Adam Yates MD Active MELOXICAM 15 MG TABS 1 qd MELOXICAM 2632855 6953 No Longer Active Adam Yates MD Active IMODIUM A-D 2 MG TABS 2 onset at diarrhea and prn. LOPERAMIDE HCL 00437629183 Active Hope Benavidez MD PhD Active EXCEDRIN EXTRA STRENGTH 250-250-65 MG TABS 1-2 q6h PRN headache 201 04/16/21 [id number] 53778867915 Active Hope Benavidez MD PhD Active FLAGYL 500 MG TABS 1 qid METRONIDAZOLE 49196 031649 No Longer Active Adam Yates MD Active LEVAQUIN 750 MG TABS 1 qd LEVOFLOXACIN 5486 2076801 No Longer Active Adam Yates MD Active ADULT ASPIRIN LOW STRENGTH 81 MG TBDP 1 qd A SPIRIN 32405871271 Active Hope Benavidez MD PhD Active LEVAQUIN 750 MG TABS 1 qd LEVAQUIN 750 MG T ABS 888001 LEVOFLOXACIN Inactive FLAGYL 500 MG TABS 1 qid FLAGYL 500 MG TABS 111353 METRONIDAZOLE Inactive MELOXICAM 15 MG TABS 1 qd MELOXICAM 15 MG T ABS 229056 MELOXICAM Inactive SIMVASTATIN 40 MG TABS 1 qd SIMVASTATIN 40 MG TABS 092383 SIMVASTATIN Inactive PROZAC 20 MG CAPS 1 q d PROZAC 20 MG CAPS 31 0385 FLUOXETINE HCL Inactive DYAZIDE 37.5-25 MG CAPS 1 qd DYAZIDE 37.5 -25 MG CAPS 184122 TRIAMTERENE-HCTZ Inactive INNOPRAN XL 120 MG [id number] Take one by mouth daily 2 INNOPRAN XL 120 MG [id number] PROPRANOLOL HCL SR BEADS Inactive PROMETHAZINE HCL 25 MG TABS 1 Q. 4 hr. PRN PROMETHAZINE HCL 25 MG TABS 730384 PROMETHAZINE HCL Inactive POTASSIUM CHLORIDE 20 MEQ PACK by mouth twice a day prn POTASSIUM CHLORIDE 20 MEQ PACK 308004 POTASSIUM CHLORIDE Inactive PHENADOZ 25 MG SUPP 1 every 4 hrs. PRN PHENADOZ 2 5 MG SUPP 057359 PROMETHAZINE HCL Inactive ZOFRAN 8 MG TABS 1 tab by mouth every 12 hours prn 201 05/16/09 ZOFRAN 8 MG TABS 697559 ONDANSETRON HCL Inactive OMEPRAZOLE 20 MG CPDR 1 tablet by mouth daily for GERD OMEPRAZOLE 20 MG CPDR 090962 OMEPRAZOLE Inactive CYCLOBENZAPRINE HCL 10 MG TABS 1 tablet by mouth three times daily as needed for headaches CYCLOBENZAPRINE HCL 10 MG TABS 384256 CYCLOBENZAPRINE HCL Inactive VITAMIN D3 4000 IU 1 tab 3 times daily VITAMIN D3 4000 IU Inactive PROPRANOLOL HCL 80 MG TABS 1 tab tue. and thur. 04/10 PROPRANOLOL HCL 80 MG TABS 325177 PROPRANOLOL HCL Inactive CYANOCOBALAMIN 1000 MCG/ML INJ SOLN 1 injection every 2 weeks 20 20/01/03 CYANOCOBALAMIN 1000 MCG/ML INJ SOLN 284502 CYANOCOBALAM IN Inactive MAGNESIUM GLUCONATE 250 MG TABS 1 tab tid 4 MAGNESIUM GLUCONATE 250 MG TABS 763050 MAGNESIUM GLUCONATE Inactive LOMOTIL 2.5-0.025 MG TABS 1 tab by mouth prn 4 LOMOTIL 2.5- 0.025 MG TABS 8828804 DIPHENOXYLATE-ATROPINE Inactive FLAGYL 500 MG TABS 1 pill by mouth three times daily, for diarrh ea FLAGYL 500 MG TABS 298431 METRONIDAZOLE Inactive BACTRIM DS 800-160 MG TABS 1 pill by mouth twice daily, for UTI BACTRIM DS 800-160 MG TABS 866434 SULFAMETHOXAZOLE-TRIM ETHOPRIM Inactive Advance Directives Directive Description [...] Panel - Chemistry sodium, serum 142 mmol/L 753-579 7991/04/20 carbon dioxide, venous blood 34.7 mmol/L 21.0-32 .0 potassium, serum 3.5 mmol/L 3.5-5.2 chloride, serum 102 mmol/L 98-107 blood glucose 102 mg/dL 65-110 urea nitrogen, blood 24 mg/dL 7-18 creatinine, serum 1.37 mg/dL 0.55-1.30 alanine aminotransferase (SGPT), serum 72 U/L -78 aspartate aminotransferase (SGOT), serum 44 U/L 15-37 calcium, serum 9.0 mg/dL 8.5-10.1 bilirubin, serum, total 0.50 mg/dL 0.00-1.00 sodium, serum 138 mmol/L 387-506 0384/10/23 carbon dioxide, venous blood 29.5 mmol/L 21.0-32 [...] 11 .6-14.8 platelet count 189 10^3/MM^3 10*3/mm3 187-509 7716/04/20 leukocyte count, blood 5.9 10^3/MM^3 10*3/mm3 4.6-10.2 [...] 1.24 m[iU]/mL 0.36-3.74 cholesterol, serum 227 mg/dL 863-355 0397/10/23 triglyceride, serum, fasting 144 mg/dL 30-200 HDL cholesterol, serum 60 mg/dL 32-96 LDL cholesterol, serum 138 mg/dL 0-130 Lab Report: Lipid Panel, MICROALBUMIN, T hyroid Stimulating Hormone (L) - Lab microalbumin, urine 10 0-19 Encounters Code Encounter Date Provider Facility CPT-92121 Level 3 Est. Patient 13:15:54 CDT Kylie Lund [facility] CPT-49839 Level 3 Est. Patient 09:10:11 CDT Kylie Lund [facility] CPT-60182 Level 4 Est. Patient 12:08:30 MILLING MACHINIST Hope cohn MD PhD [facility] CPT-06722 Level 4 Est. Patient 19:08:42 MILLING MACHINIST Hope cohn MD PhD [facility] CPT-73375 Level 4 Est. Patient 20:04:51 CDT Hope cohn MD PhD [facility] CPT-81598 Level 3 New Patient 01:46:11 MILLING MACHINIST Hope landers MD PhD [facility] Procedures Code Procedure Name Date Entry Date Standard Desc ription CPT-J0897 Prolia 60 mg 16:09:34 MILLING MACHINIST CPT-J0897 Prolia 60 mg 11:10:35 MILLING MACHINIST CPT-09887 Abx/Therapy Injection 11:10:35 MILLING MACHINIST CPT-000 Give Appropriate Flu Vaccine 17:01:15 MILLING MACHINIST 2 CPT-31331 Fluzone High Dose (65+) 15:03:08 MILLING MACHINIST 02/15 CPT-84480 Immunization Single Admin 15:03:08 MILLING MACHINIST 2014 CPT-OV Office Visit 15:58:06 CDT CPT-J0897 Prolia 60 mg 08:45:38 CDT CPT-90647 Abx/Therapy Injection 08:45:38 CDT CPT-J3420 Vitamin B12 1000mcg (Cyanocobalamin) 09:26:20 MILLING MACHINIST CPT-30472 Abx/Therapy Injection 09:26:20 MILLING MACHINIST CPT-J3420 Vitamin B12 1000mcg (Cyanocobalamin) 09:44:40 MILLING MACHINIST CPT-91511 Abx/Therapy Injection 09:44:40 MILLING MACHINIST CPT-J3420 Vitamin B12 1000mcg (Cyanocobalamin) 09:15:54 MILLING MACHINIST CPT-47358 Abx/Therapy Injection 09:15:54 MILLING MACHINIST CPT-J3420 Vitamin B12 1000mcg (Cyanocobalamin) 09:46:44 MILLING MACHINIST CPT-67776 Abx/Therapy Injection 09:46:44 MILLING MACHINIST CPT-J3420 Vitamin B12 1000mcg (Cyanocobalamin) 09:47:34 MILLING MACHINIST CPT-00365 Abx/Therapy Injection 09:47:34 MILLING MACHINIST CPT-J3420 Vitamin B12 1000mcg (Cyanocobalamin) 14:35:50 MILLING MACHINIST CPT-J3420 Vitamin B12 1000mcg (Cyanocobalamin) 09:25:05 MILLING MACHINIST CPT-65550 Abx/Therapy Injection 09:25:05 MILLING MACHINIST CPT-G0008 Administration of Influenza Virus Vaccine 13:36:47 CDT CPT-29208 Fluzone High-Dose Intramuscular Suspension 11/15 13:36:47 CDT CPT-J0897 Prolia 60 mg 08:50:41 CDT CPT-54035 Abx/Therapy Injection 08:50:41 CDT CPT-32831 Bone Density 12:06:12 CDT CPT-02232 Bone Density 08:54:40 CDT CPT-OV Office Visit 15:37:02 CDT CPT-69558 Postop F/U Visit 15:47:49 CDT CPT-82910 Postop F/U Visit 15:21:02 CDT CPT-[facility] Transitional Care Mgmt-High 07:52:27 CDT 20 20/06/01 CPT-07054 Venipuncture Draw Fee 13:51:18 CDT CPT-53657 Venipuncture Draw Fee 10:14:55 MILLING MACHINIST CPT-30269 Venipuncture Draw Fee 13:39:45 MILLING MACHINIST CPT-OV Office Visit 15:11:22 MILLING MACHINIST CPT-02884 Venipuncture Draw Fee 09:20:49 MILLING MACHINIST CPT-68683 Venipuncture Draw Fee 16:52:15 MILLING MACHINIST CPT-29464 Venipuncture Draw Fee 10:37:24 MILLING MACHINIST CPT-52341 Venipuncture Draw Fee 08:21:21 MILLING MACHINIST CPT-77971 Venipuncture Draw Fee 08:30:20 MILLING MACHINIST CPT-78327 Venipuncture Draw Fee 14:53:21 MILLING MACHINIST CPT-77161 Venipuncture Draw Fee 09:40:56 MILLING MACHINIST CPT-34920 Venipuncture Draw Fee 10:30:47 MILLING MACHINIST CPT-40436 Venipuncture Draw Fee 10:46:17 MILLING MACHINIST CPT-35647 Venipuncture Draw Fee 11:12:45 MILLING MACHINIST CPT-51935 Venipuncture Draw Fee 09:53:33 MILLING MACHINIST CPT-53287 Venipuncture Draw Fee 11:53:51 MILLING MACHINIST CPT-48406 Venipuncture Draw Fee 10:33:50 MILLING MACHINIST CPT-26064 Venipuncture Draw Fee 10:05:01 MILLING MACHINIST CPT-36169 Venipuncture Draw Fee 14:32:52 MILLING MACHINIST CPT-56508 Venipuncture Draw Fee 09:46:13 MILLING MACHINIST CPT-32749 Venipuncture Draw Fee 11:34:27 MILLING MACHINIST CPT-26074 Venipuncture Draw Fee 13:17:16 MILLING MACHINIST CPT-95505 Venipuncture Draw Fee 12:05:39 CDT CPT-74274 Venipuncture Draw Fee 12:49:12 CDT CPT-25711 Venipuncture Draw Fee 12:37:18 CDT CPT-34572 Venipuncture Draw Fee 10:57:11 CDT CPT-52593 Venipuncture Draw Fee 13:47:40 CDT CPT-77906 Venipuncture Draw Fee 10:02:17 CDT CPT-25804 TB Tubersol 17:32:32 CDT CPT-OV Office Visit 16:21:53 CDT CPT-OV Office Visit 15:49:22 CDT CPT-OV Office Visit 17:16:31 CDT CPT-OV Office Visit 10:43:31 CDT
--- OUTSIDE RECORDS SUMMARY | 2019-02-09 12:45 | XMS REPORT | Clinical Summary ---
Author Author Admin, Florecita Munoz Organization [facility] Address Unknown Phone Unavailable Allergies, Adverse Reactions, [...] Sebaceous cyst, scalp 706.2 Resolved Kylie Yokum CRANE RIGGER Sebaceous cyst Cervical lymphadenopathy, anterior, left 785.6 Resolv ed Kylie Yokum CRANE RIGGER Enlargement of lymph nodes Need for prophylactic vaccination and inoculation against in fluenza V04.81 Resolved Adam Yates MD Need for prophylactic vaccination and inoculation against influenza Preventive health care V70.0 Active Kylie Yokum CRANE RIGGER Routine general medical examination at a health care facility Thyroid nodule, left 241.0 Active Kylie Yokum A PRN Nontoxic uninodular goiter Screening mammogram V76.12 Active Kylie Yokum AP RN Other screening mammogram Mandy 706.2 Resolved Kylie Yokum CRANE RIGGER Sebaceous cyst Colon cancer, ascending 153.6 Resolved Kylie Yok um CRANE RIGGER Malignant neoplasm of ascending colon Foot pain, left 729.5 Active Sulema 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 Pain in limb Splinter 919.6 Active Kylie Yokum CRANE RIGGER Superficial foreign body (splinter) of other, multiple, and unspecified sites, without major open wound and without mention of infection Rash 782.1 Active Kylie Yokum CRANE RIGGER R aurora and other nonspecific skin eruption ABDOMINAL PAIN, RIGHT LOWER QUADRANT ICD-789.03 Inactive Kina Joshua CRANE RIGGER ADENOCARCINOMA, COLON, 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 Dick Yates MD ABDOMINAL PAIN, GENERALIZED ICD-789.07 Inactive Hope Benavidez MD PhD FEVER UNSPECIFIED ICD-780.60 Inactive Hope cohn MD PhD UNSPECIFIED VENOUS INSUFFICIENCY ICD-459.81 Elda ctive Adam Yates MD ADENOCARCINOMA, 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 Inac tive Hope Benavidez MD PhD Hyperkalemia ICD-276.7 Inactive Hope Benavidez MD PhD GERD ICD-530.81 Inactive Kylie Yanet CRANE RIGGER 2015 Health maintenance exam ICD-V70.0 Bam Yates MD Anemia ICD-285.9 Inactive Kylie Yanet CRANE RIGGER 07/24 Hypomagnesemia ICD-275.2 Inactive Kylie Yogabbium CRANE RIGGER Weakness ICD-780.79 Inactive Hope Benavidez MD P [...] Sebaceous cyst, scalp ICD-706.2 Inactive Tracy Lundum CRANE RIGGER Cervical lymphadenopathy, anterior, left ICD-785.6 Inactive Kylie Lundum CRANE RIGGER Need for prophylactic vaccination and inoculation against in fluenza ICD-V04.81 Inactive Adam Yates MD Mandy ICD-706.2 Inactive Kylie Lundum AMY 07/20 Colon cancer, ascending ICD-153.6 Inactive Gabbi Escalonagabbioliver AMY Medication List Medication Instructions Start Date Stop Date Generic Name ND Status Provider Patient Instruction VOLTAREN 1 % TRANSDERMAL GEL apply q 6-8 hour to left arm as needed for pain DICLOFENAC SODIUM 06662533664 Active Kylie Lundum CRANE RIGGER Active COQ10 100 MG ORAL CAPSULE 1 daily COENZYME Q10 965625 48338 Active LETY Nation Active VITAMIN D3 2000 UNIT ORAL CAPSULE Melaleuca-One daily CHOLECALCIFEROL 35196620130 Active Kylie Lundum CRANE RIGGER Active PROBIOTIC DAILY ORAL CAPSULE Take one daily PROBIO TIC PRODUCT 09494245539 Active Kylie Escalonakum CRANE RIGGER Active IRON 325 (65 Fe) MG ORAL TABLET 1 every other day FERROUS SULFATE 37370815761 No Longer Active Kylie Lundum CRANE RIGGER Active FLORANEX ORAL PACKET 1 pack three times daily, for bowel health LACTOBACILLUS 10037304566 No Longer Active Kylie Kevonum CRANE RIGGER Active LOMOTIL 2.5-0.025 MG ORAL TABLET 1 tab by mouth prn 23/10/23 DIPHENOXYLATE-ATROPINE 23700825602 No Longer Active Kylie Yokum CRANE RIGGER Active MAGNESIUM GLUCONATE 250 MG ORAL TABLET 1 tab tid 23/10/23 MAGNESIUM GLUCONATE 64822255249 No Longer Active Kylie Yokum CRANE RIGGER Active CYANOCOBALAMIN 1000 MCG/ML INJECTION SOLUTION 1 injection ev ruben 2 weeks CYANOCOBALAMIN 83019307246 No Longer Active Kylie Lund um CRANE RIGGER Active ATENOLOL 25 MG ORAL TABLET 1/2 pill by mouth daily, fo r headaches, blood pressure ATENOLOL 99285597604 Active Kylie Lundum CRANE RIGGER Active PROPRANOLOL HCL 80 MG ORAL TABLET 1 tab tue. and thur. PROPRANOLOL HCL 89903465667 No Longer Active Hope Benavidez MD PhD A ctive VITAMIN D3 4000 IU 1 tab 3 times daily VITAMIN D3 4000 IU No Longer Active Hope Benavidez MD PhD Active BACTRIM DS 800-160 MG ORAL TABLET 1 pill by mouth twice claudio y, for UTI SULFAMETHOXAZOLE-TRIMETHOPRIM 80318636132 No Longer Active Hope Benavidez MD PhD Active PROLIA 60 MG/ML SUBCUTANEOUS SOLUTION 1 shot every 6 months for osteoprosis DENOSUMAB 24418501266 Active Hope Benavidez MD PhD Active CALCIUM + D + K 750-500-40 MG-UNT-MCG ORAL TABLET 1 tab by [facility] twice daily CALCIUM-VITAMIN D-VITAMIN K 37380515367 Active Hope valdez MD PhD Active DAILY VALUE MULTIVITAMIN ORAL TABLET 1 tab by mouth twice daily 201 05/16/14 MULTIPLE VITAMIN 53015719098 Active Hope Benavidez MD PhD Acti ve FISH OIL 306 MG CAPS 1 tab by mouth three times daily OMEGA-3 FATTY ACIDS 93990741799 Active Hope Benavidez MD PhD Active LUTEIN 10 MG ORAL TABLET 1 tab daily LUTEIN 58347705 408 Active Hope Benavidez MD PhD Active TRIAMTERENE-HCTZ 37.5-25 MG ORAL TABLET 1 tab by mouth daily 10/22 TRIAMTERENE-HCTZ 54887799245 Active LETY Rossi Activ aarti CYCLOBENZAPRINE HCL 10 MG ORAL TABLET 1 tablet by mout h three times daily as needed for headaches CYCLOBENZAPRINE HCL 71733575109 No Longer Active Adam Yates MD Active OMEPRAZOLE 20 MG ORAL CAPSULE DELAYED RELEASE 1 tablet by mo [facility] daily for GERD OMEPRAZOLE 65215008462 No Longer Active Adam Yates MD Active ZOFRAN 8 MG ORAL TABLET 1 tab by mouth every 12 hours prn 4 ONDANSETRON HCL 97065787740 No Longer Active Adam Yates MD Active PHENADOZ 25 MG RECTAL SUPPOSITORY 1 every 4 hrs. PRN 2 PROMETHAZINE HCL 78586545446 No Longer Active Adam Yates MD A ctive POTASSIUM CHLORIDE 20 MEQ ORAL PACKET by mouth twice a day prn 2 POTASSIUM CHLORIDE 75661752310 No Longer Active Adam Carpenter MD Active PROMETHAZINE HCL 25 MG ORAL TABLET 1 Q. 4 hr. PRN PROMETHAZINE HCL 68591358614 No Longer Active Adam Yates MD Active INNOPRAN XL 120 MG ORAL CAPSULE EXTENDED RELEASE 24 HO UR Take one by mouth daily PROPRANOLOL HCL SR BEADS 67397418506 No Longer Active Adam Yates MD Active FLAGYL 500 MG ORAL TABLET 1 pill by mouth three times daily, for diarrhea METRONIDAZOLE 81701716794 No Longer Active Hope landers MD PhD Active DYAZIDE 37.5-25 MG ORAL CAPSULE 1 qd TRIA MTERENE-HCTZ 13742914667 No Longer Active Hope Benavidez MD PhD Active PROZAC 20 MG ORAL CAPSULE 1 q d FLUOXETINE HCL 00207395059 No Longer Active Hope Benavidez MD PhD Active SIMVASTATIN 40 MG ORAL TABLET 1 qd SIMVAS TATIN 90788967798 No Longer Active Adam Yates MD Active MELOXICAM 15 MG ORAL TABLET 1 qd MELOXICAM 27530575437 No Longer Active Adam Yates MD Active IMODIUM A-D 2 MG ORAL TABLET 2 onset at diarrhea and prn. LOPERAMIDE HCL 84850110363 Active Hope Benavidez MD PhD Active EXCEDRIN EXTRA STRENGTH 250-250-65 MG ORAL TABLET 1-2 q6h MT N headache NQHOOSS-[id number]-PAKGVVCV 08658401519 Active Hope Benavidez MD PhD Active FLAGYL 500 MG ORAL TABLET 1 qid METRONIDAZOL E 58954693276 No Longer Active Adam Yates MD Active LEVAQUIN 750 MG ORAL TABLET 1 qd LEVOFLOXAC IN 25821942934 No Longer Active Adam Yates MD Active ADULT ASPIRIN LOW STRENGTH 81 MG ORAL TABLET DISINTEGRATING 1 qd ASPIRIN 43094915586 Active Hope Benavidez MD PhD Active LEVAQUIN 750 MG ORAL TABLET 1 qd LEVAQUIN 750 MG ORAL TABLET 550689 LEVOFLOXACIN Inactive FLAGYL 500 MG ORAL TABLET 1 qid FLAGYL 500 MG ORAL TABLET 557681 METRONIDAZOLE Inactive MELOXICAM 15 MG ORAL TABLET 1 qd MELOXICAM 15 MG ORAL TABLET 184912 MELOXICAM Inactive SIMVASTATIN 40 MG ORAL TABLET 1 qd SIMVASTATIN 40 MG ORAL TABLET 660667 SIMVASTATIN Inactive PROZAC 20 MG ORAL CAPSULE 1 q d PROZAC 20 MG ORAL CAPSULE 189463 FLUOXETINE HCL Inactive DYAZIDE 37.5-25 MG ORAL CAPSULE 1 qd 5 DYAZIDE 37.5-25 MG ORAL CAPSULE 399485 TRIAMTERENE-HCTZ Inactive INNOPRAN XL 120 MG ORAL CAPSULE EXTENDED RELEASE 24 HO UR Take one by mouth daily INNOPRAN XL 120 MG ORAL CAPSULE EXTENDED RELEASE 24 HOUR PROPRANOLOL HCL SR BEADS Inactive PROMETHAZINE HCL 25 MG ORAL TABLET 1 Q. 4 hr. PRN 2013 PROMETHAZINE HCL 25 MG ORAL TABLET 878623 PROMETHAZINE HCL Inactive POTASSIUM CHLORIDE 20 MEQ ORAL PACKET by mouth twice a day prn 2 POTASSIUM CHLORIDE 20 MEQ ORAL PACKET 9298143 POTASSIUM CHLORIDE Inactive PHENADOZ 25 MG RECTAL SUPPOSITORY 1 every 4 hrs. PRN 2 PHENADOZ 25 MG RECTAL SUPPOSITORY 825838 PROMETHAZINE HCL Inactive ZOFRAN 8 MG ORAL TABLET 1 tab by mouth every 12 hours prn 4 ZOFRAN 8 MG ORAL TABLET 640154 ONDANSETRON HCL Inactive OMEPRAZOLE 20 MG ORAL CAPSULE DELAYED RELEASE 1 tablet by mo uth daily for GERD OMEPRAZOLE 20 MG ORAL CAPSULE DELAYED RELEASE 19 8051 OMEPRAZOLE Inactive CYCLOBENZAPRINE HCL 10 MG ORAL TABLET 1 tablet by mout h three times daily as needed for headaches CYCLOBENZAPRINE HCL 10 MG ORAL TABLET 126079 CYCLOBENZAPRINE HCL Inactive VITAMIN D3 4000 IU 1 tab 3 times daily VITAMIN D3 4000 IU Inactive PROPRANOLOL HCL 80 MG ORAL TABLET 1 tab tue. and thur. PROPRANOLOL HCL 80 MG ORAL TABLET 830093 PROPRANOLOL HCL Inacti ve CYANOCOBALAMIN 1000 MCG/ML INJECTION SOLUTION 1 injection ev ruben 2 weeks CYANOCOBALAMIN 1000 MCG/ML INJECTION SOLUTION 30 9594 CYANOCOBALAMIN Inactive MAGNESIUM GLUCONATE 250 MG ORAL TABLET 1 tab tid 20 23/10/23 MAGNESIUM GLUCONATE 250 MG ORAL TABLET 118027 MAGNESIUM GLUCONATE Inactive LOMOTIL 2.5-0.025 MG ORAL TABLET 1 tab by mouth prn 20 23/10/23 LOMOTIL 2.5-0.025 MG ORAL TABLET 1271231 DIPHENOXYLATE-ATROPINE Inac tive FLORANEX ORAL PACKET 1 pack three times daily, for bowel health FLORANEX ORAL PACKET LACTOBACILLUS Inactive IRON 325 (65 Fe) MG ORAL TABLET 1 every other day 2015 IRON 325 (65 Fe) MG ORAL TABLET 391685 FERROUS SULFATE Inactive FLAGYL 500 MG ORAL TABLET 1 pill by mouth three times daily, for diarrhea FLAGYL 500 MG ORAL TABLET 743757 METRONIDAZOLE I nactive BACTRIM DS 800-160 MG ORAL TABLET 1 pill by mouth twice claudio y, for UTI BACTRIM DS 800-160 MG ORAL TABLET 152620 SULFAMETHOXAZOLE-TRIMETHOPRIM Inactive Advance Directives Directive Description Start [...] ... - Chemistry sodium, serum 138 mmol/L 303-724 3051/12/15 potassium, serum 4.0 mmol/L 3.5-5.2 chloride, serum [...] 11 .0-15.0 platelet count 157 THOUSAND/UL 10*3/mm3 011-409 4243/04/20 mean platelet volume 8.9 fL 7.5-12.5 Lab Report: CEA - Serology carcinoembryonic antigen 0.9 ng/mL Encounters Code Encounter Date Provider Facility CPT-39768 Level 2 Est. Patient 14:27:16 TROUBLE LOCATOR TEST DESK Kylie boyd [facility] CPT-86236 Level 3 Est. Patient 17:54:48 CDT Kylie boyd [facility] CPT-98090 Level 3 Est. Patient 16:26:30 CDT Kina blackmon [facility] CPT-71055 Level 3 New Patient 16:22:01 TROUBLE LOCATOR TEST DESK Adam Yates MD [facility] CPT-16193 Level 4 Est. Patient 17:00:48 CDT [facility]PT-55058 Level 3 Est. Patient 13:15:54 CDT Kylie boyd [facility] CPT-16695 Level 3 Est. Patient 09:10:11 CDT Kylie Lund [facility] [place] CPT-39480 Level 4 Est. Patient 12:08:30 TROUBLE LOCATOR TEST DESK Hope cohn MD [facility] CPT-69739 Level 4 Est. Patient 19:08:42 TROUBLE LOCATOR TEST DESK Hope cohn MD [facility] CPT-95737 Level 4 Est. Patient 20:04:51 CDT Hope cohn MD [facility] CPT-74295 Level 3 New Patient 01:46:11 TROUBLE LOCATOR TEST DESK Hope landers MD PhD [facility] Procedures Code Procedure Name Date Entry Date Standard Desc ription CPT-71611 Microalbumin - LAB USE ONLY 09:41:32 TROUBLE LOCATOR TEST DESK 20 23/01/15 CPT-01664 Free T4 - LAB USE ONLY 09:41:32 TROUBLE LOCATOR TEST DESK CPT-39828 TSH - LAB USE ONLY 09:41:32 TROUBLE LOCATOR TEST DESK CPT-83741 BMP - LAB USE ONLY 09:41:32 TROUBLE LOCATOR TEST DESK CPT-53411 Venipuncture Draw Fee 09:41:32 TROUBLE LOCATOR TEST DESK CPT-41026 First Vx - Ix admin for Medicare patients 11:19:30 CDT CPT-09282 Fluzone High-Dose Intramuscular Suspension 12/07 11:19:30 CDT CPT-J0897 Prolia 60 mg 14:55:42 CDT CPT-82693 Abx/Therapy Injection 14:55:42 CDT CPT-29879 Bone Density - XRAY USE ONLY 10:27:12 CDT 2 CPT-G0439 MC Subsequent Annual Wellness Exam 17:54:53 CDT CPT-84451 Foot, left, comp min 3V - XRAY USE ONLY 12:22:49 CDT CPT-G0009 Administration of Pneumococcal Vaccine 3 12:18:00 CDT CPT-28262 Pneumovax 23 Injection Injectable 25 MCG /0.5ML 12:18:00 CDT CPT-J0897 Prolia 60 mg 14:14:16 TROUBLE LOCATOR TEST DESK CPT-05937 Abx/Therapy Injection 14:14:15 TROUBLE LOCATOR TEST DESK CPT-32741 Lipid - LAB USE ONLY 10:01:52 TROUBLE LOCATOR TEST DESK 2 CPT-04222 Calcium - LAB USE ONLY 10:01:51 TROUBLE LOCATOR TEST DESK CPT-93435 Venipuncture Draw Fee 10:01:51 TROUBLE LOCATOR TEST DESK CPT-LR Lesion Removal 16:22:01 TROUBLE LOCATOR TEST DESK CPT-51893 TSH - LAB USE ONLY 14:26:02 CDT CPT-32971 CMP - LAB USE ONLY 14:26:01 CDT CPT-28119 CBC with Diff - LAB USE ONLY 14:26:01 CDT 2 CPT-37220 Venipuncture Draw Fee 14:26:01 CDT CPT-99678 First Vx - Ix admin for Medicare patients 13:27:08 CDT CPT-17139 Fluzone High-Dose Intramuscular Suspension 11/26 13:27:08 CDT CPT-G0438 Initial Annual Wellness Exam 14:19:57 CD T CPT-G0009 Administration of Pneumococcal Vaccine 9 11:36:25 CDT CPT-87863 Prevnar 13 Intramuscular Suspension 1 1:36:25 CDT CPT-90310 Prevnar 13 Intramuscular Suspension 1 0:40:58 CDT CPT-J0897 Prolia 60 mg 10:37:16 CDT CPT-54722 Abx/Therapy Injection 10:37:16 CDT CPT-J0897 Prolia 60 mg 16:09:34 TROUBLE LOCATOR TEST DESK CPT-J0897 Prolia 60 mg 11:10:35 TROUBLE LOCATOR TEST DESK CPT-07164 Abx/Therapy Injection 11:10:35 TROUBLE LOCATOR TEST DESK CPT-000 Give Appropriate Flu Vaccine 17:01:15 TROUBLE LOCATOR TEST DESK 2 CPT-84980 Fluzone High Dose (65+) 15:03:08 TROUBLE LOCATOR TEST DESK 02/15 CPT-45350 Immunization Single Admin 15:03:08 TROUBLE LOCATOR TEST DESK 2014 CPT-OV Office Visit 15:58:06 CDT CPT-J0897 Prolia 60 mg 08:45:38 CDT CPT-48108 Abx/Therapy Injection 08:45:38 CDT CPT-J3420 Vitamin B12 1000mcg (Cyanocobalamin) 09:26:20 TROUBLE LOCATOR TEST DESK CPT-20610 Abx/Therapy Injection 09:26:20 TROUBLE LOCATOR TEST DESK CPT-J3420 Vitamin B12 1000mcg (Cyanocobalamin) 09:44:40 TROUBLE LOCATOR TEST DESK CPT-51637 Abx/Therapy Injection 09:44:40 TROUBLE LOCATOR TEST DESK CPT-J3420 Vitamin B12 1000mcg (Cyanocobalamin) 09:15:54 TROUBLE LOCATOR TEST DESK CPT-32697 Abx/Therapy Injection 09:15:54 TROUBLE LOCATOR TEST DESK CPT-J3420 Vitamin B12 1000mcg (Cyanocobalamin) 09:46:44 TROUBLE LOCATOR TEST DESK CPT-04904 Abx/Therapy Injection 09:46:44 TROUBLE LOCATOR TEST DESK CPT-J3420 Vitamin B12 1000mcg (Cyanocobalamin) 09:47:34 TROUBLE LOCATOR TEST DESK CPT-41481 Abx/Therapy Injection 09:47:34 TROUBLE LOCATOR TEST DESK CPT-J3420 Vitamin B12 1000mcg (Cyanocobalamin) 14:35:50 TROUBLE LOCATOR TEST DESK CPT-J3420 Vitamin B12 1000mcg (Cyanocobalamin) 09:25:05 TROUBLE LOCATOR TEST DESK CPT-66076 Abx/Therapy Injection 09:25:05 TROUBLE LOCATOR TEST DESK CPT-G0008 Administration of Influenza Virus Vaccine 13:36:47 CDT CPT-94640 Fluzone High-Dose Intramuscular Suspension 11/15 13:36:47 CDT CPT-J0897 Prolia 60 mg 08:50:41 CDT CPT-88798 Abx/Therapy Injection 08:50:41 CDT CPT-60243 Bone Density 12:06:12 CDT CPT-28641 Bone Density 08:54:40 CDT CPT-OV Office Visit 15:37:02 CDT CPT-23636 Postop F/U Visit 15:47:49 CDT CPT-58641 Postop F/U Visit 15:21:02 CDT CPT-TCMH Transitional Care Mgmt-High 07:52:27 CDT 20 20/06/01 CPT-86006 Venipuncture Draw Fee 13:51:18 CDT CPT-57909 Venipuncture Draw Fee 10:14:55 TROUBLE LOCATOR TEST DESK CPT-47804 Venipuncture Draw Fee 13:39:45 TROUBLE LOCATOR TEST DESK CPT-OV Office Visit 15:11:22 TROUBLE LOCATOR TEST DESK CPT-57377 Venipuncture Draw Fee 09:20:49 TROUBLE LOCATOR TEST DESK CPT-14734 Venipuncture Draw Fee 16:52:15 TROUBLE LOCATOR TEST DESK CPT-68637 Venipuncture Draw Fee 10:37:24 TROUBLE LOCATOR TEST DESK CPT-53516 Venipuncture Draw Fee 08:21:21 TROUBLE LOCATOR TEST DESK CPT-14135 Venipuncture Draw Fee 08:30:20 TROUBLE LOCATOR TEST DESK CPT-34700 Venipuncture Draw Fee 14:53:21 TROUBLE LOCATOR TEST DESK CPT-27155 Venipuncture Draw Fee 09:40:56 TROUBLE LOCATOR TEST DESK CPT-38115 Venipuncture Draw Fee 10:30:47 TROUBLE LOCATOR TEST DESK CPT-31891 Venipuncture Draw Fee 10:46:17 TROUBLE LOCATOR TEST DESK CPT-65060 Venipuncture Draw Fee 11:12:45 TROUBLE LOCATOR TEST DESK CPT-78278 Venipuncture Draw Fee 09:53:33 TROUBLE LOCATOR TEST DESK CPT-61907 Venipuncture Draw Fee 11:53:51 TROUBLE LOCATOR TEST DESK CPT-99315 Venipuncture Draw Fee 10:33:50 TROUBLE LOCATOR TEST DESK CPT-82508 Venipuncture Draw Fee 10:05:01 TROUBLE LOCATOR TEST DESK CPT-66947 Venipuncture Draw Fee 14:32:52 TROUBLE LOCATOR TEST DESK CPT-27355 Venipuncture Draw Fee 09:46:13 TROUBLE LOCATOR TEST DESK CPT-65256 Venipuncture Draw Fee 11:34:27 TROUBLE LOCATOR TEST DESK CPT-77979 Venipuncture Draw Fee 13:17:16 TROUBLE LOCATOR TEST DESK CPT-06556 Venipuncture Draw Fee 12:05:39 CDT CPT-54439 Venipuncture Draw Fee 12:49:12 CDT CPT-89612 Venipuncture Draw Fee 12:37:18 CDT CPT-07447 Venipuncture Draw Fee 10:57:11 CDT CPT-25013 Venipuncture Draw Fee 13:47:40 CDT CPT-74167 Venipuncture Draw Fee 10:02:17 CDT CPT-87780 TB Tubersol 17:32:32 CDT CPT-OV Office Visit 16:21:53 CDT CPT-OV Office Visit 15:49:22 CDT CPT-OV Office Visit 17:16:31 CDT CPT-OV Office Visit 10:43:31 CDT
--- OUTSIDE RECORDS SUMMARY | 2019-02-09 12:45 | XMS REPORT | Clinical Summary ---
Author Author Admin, Florecita Munoz Organization [facility] Address Unknown Phone Unavailable Allergies, Adverse Reactions, [...] Sebaceous cyst, scalp 706.2 Resolved Kylie Yogabbium [employer] APPLIANCE TECH Sebaceous cyst Cervical lymphadenopathy, anterior, left 785.6 Resolv ed Kylie Yokum [employer] APPLIANCE TECH Enlargement of lymph nodes Need for prophylactic vaccination and inoculation against in fluenza V04.81 Resolved Adam Yates MD Need for prophylactic vaccination and inoculation against influenza Preventive health care V70.0 Resolved Kylie deras [employer] APPLIANCE TECH Routine general medical examination at a health care facility Thyroid nodule, left 241.0 Active Kylie Gonzalez PRN Nontoxic uninodular goiter Screening mammogram V76.12 Active Kylie MEEK RN Other screening mammogram Mandy 706.2 Resolved Kylie Yokum [employer]IANCE TECH Sebaceous cyst Colon cancer, ascending 153.6 Resolved Kylie Yok um [employer] APPLIANCE TECH Malignant neoplasm of ascending colon Foot pain, left 729.5 Active Sulema Schwarz 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 Pain in limb Splinter 919.6 Resolved Kylie Yokum [employer] APPLIANCE TECH Superficial foreign body (splinter) of other, multiple, and unspecified sites, without major open wound and without mention of infection Rash 782.1 Resolved Kylie Yokum [employer] APPLIANCE TECH Rash and other nonspecific skin eruption Cyst 706.2 Active Kylie Yokum [employer] APPLIANCE TECH S ebaceous cyst Body Mass Index 23.0-23.9 Adult Active Kylie Yogabbium [employer]PLIANCE TECH Body Mass Index between 19-24, adult Unspecified fall, initial encounter E888.9 Active Kylie Holt [employer] APPLIANCE TECH Unspecified fall Eye pain, left 379.91 Active Kylie Yanet [employer] APPLIANCE TECH Pain in or around eye ABDOMINAL PAIN, RIGHT LOWER QUADRANT ICD-789.03 Inactive Kina Joshua [employer] APPLIANCE TECH ADENOCARCINOMA, COLON, 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 Dick Yates MD ABDOMINAL PAIN, GENERALIZED ICD-789.07 Inactive Hope Benavidez MD PhD FEVER UNSPECIFIED ICD-780.60 Inactive Hope cohn MD PhD UNSPECIFIED VENOUS INSUFFICIENCY ICD-459.81 [place] ctive Adam Yates MD ADENOCARCINOMA, 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 Inac tive Hope Benavidez MD PhD Hyperkalemia ICD-276.7 Inactive Hope Benavidez MD PhD GERD ICD-530.81 Inactive Kylie Holt [employer] APPLIANCE TECH 2015 Health maintenance exam ICD-V70.0 Bam Yates MD Anemia ICD-285.9 Inactive Kylie Holt [employer] APPLIANCE TECH 07/24 Hypomagnesemia ICD-275.2 Inactive Kylie Yokum [employer] APPLIANCE TECH Weakness ICD-780.79 Inactive Hope Benavidez MD P [...] scalp ICD-706.2 Inactive Tracy hi Yokum [employer] APPLIANCE TECH Cervical lymphadenopathy, anterior, left ICD-785.6 Inactive Kylie Yokum [employer] APPLIANCE TECH Need for prophylactic vaccination and inoculation against in fluenza ICD-V04.81 Inactive Adam Yates MD Preventive health care ICD-V70.0 Inactive Ka thi Yokum [employer] APPLIANCE TECH Mandy ICD-706.2 Inactive Kylie Yokum [employer] APPLIANCE TECH 07/20 Colon cancer, ascending ICD-153.6 Inactive K athi Yokum [employer] APPLIANCE TECH Splinter ICD-919.6 Inactive Kylie Yokum [employer] APPLIANCE TECH 2017 Rash ICD-782.1 Inactive Kylie Yokum [employer] APPLIANCE TECH 07/25 Medication List Medication Instructions Start Date Stop Date Generic Name NDC Status Provider Patient Instruction IMODIUM A-D 2 MG ORAL TABLET 1 tablet twice a day LOPERAMIDE HCL 35137844362 Active Kylie Yokum [employer] APPLIANCE TECH Active VOLTAREN 1 % TRANSDERMAL GEL apply q 6-8 hour to left arm as needed for pain DICLOFENAC SODIUM 59099545218 Active Kylie Yokum [employer] APPLIANCE TECH Active COQ10 100 MG ORAL CAPSULE 1 daily COENZYME Q10 850084 12317 Active LETY Nation Active VITAMIN D3 2000 UNIT ORAL CAPSULE Melaleuca-One daily CHOLECALCIFEROL 83412307663 Active Kylie Holt APRN Active PROBIOTIC DAILY ORAL CAPSULE Take one daily PROBIO TIC PRODUCT 44770574852 Active Kylie Lundum [employer] APPLIANCE TECH Active IRON 325 (65 Fe) MG ORAL TABLET 1 every other day FERROUS SULFATE 24558716777 No Longer Active Kylie Holt [employer] APPLIANCE TECH Active FLORANEX ORAL PACKET 1 pack three times daily, for bowel health LACTOBACILLUS 42650704912 No Longer Active Kylie Holt APRN Active LOMOTIL 2.5-0.025 MG ORAL TABLET 1 tab by mouth prn 23/10/23 DIPHENOXYLATE-ATROPINE 78646224263 No Longer Active Kylie Lundum [employer] APPLIANCE TECH Active MAGNESIUM GLUCONATE 250 MG ORAL TABLET 1 tab tid 23/10/23 MAGNESIUM GLUCONATE 10329671739 No Longer Active Kylie Holt APRN Active CYANOCOBALAMIN 1000 MCG/ML INJECTION SOLUTION 1 injection ev ruben 2 weeks CYANOCOBALAMIN 26434213826 No Longer Active Kylie Lund um [employer] APPLIANCE TECH Active ATENOLOL 25 MG ORAL TABLET 1/2 pill by mouth daily, fo r headaches, blood pressure ATENOLOL 58109602872 Active Kylie Lundum [employer] APPLIANCE TECH Active PROPRANOLOL HCL 80 MG ORAL TABLET 1 tab tue. and thur. PROPRANOLOL HCL 15098415732 No Longer Active Hope Benavidez MD PhD A ctive VITAMIN D3 4000 IU 1 tab 3 times daily VITAMIN D3 4000 IU No Longer Active Hope Benavidez MD PhD Active BACTRIM DS 800-160 MG ORAL TABLET 1 pill by mouth twice claudio y, for UTI SULFAMETHOXAZOLE-TRIMETHOPRIM 23179666575 No Longer Active Hope Benavidez MD PhD Active PROLIA 60 MG/ML SUBCUTANEOUS SOLUTION 1 shot every 6 months for osteoprosis DENOSUMAB 36386903795 Active Hope Benavidez MD PhD Active CALCIUM + D + K 750-500-40 MG-UNT-MCG ORAL TABLET 1 tab by m out twice daily CALCIUM-VITAMIN D-VITAMIN K 14663737731 Active Hope valdez MD PhD Active DAILY VALUE MULTIVITAMIN ORAL TABLET 1 tab by mouth twice daily 201 05/16/14 MULTIPLE VITAMIN 52147735072 Active Hope Benavidez MD PhD Acti ve FISH OIL 306 MG CAPS 1 tab by mouth three times daily OMEGA-3 FATTY ACIDS 05050701645 Active Hope Benavidez MD PhD Active LUTEIN 10 MG ORAL TABLET 1 tab daily LUTEIN 86520549 408 Active Hope Benavidez MD PhD Active TRIAMTERENE-HCTZ 37.5-25 MG ORAL TABLET 1 tab by mouth daily 10/22 TRIAMTERENE-HCTZ 13539793919 Active Kylie Yanet REYES Active CYCLOBENZAPRINE HCL 10 MG ORAL TABLET 1 tablet by mout h three times daily as needed for headaches CYCLOBENZAPRINE HCL 21032361886 No Longer Active Adam Yates MD Active OMEPRAZOLE 20 MG ORAL CAPSULE DELAYED RELEASE 1 tablet by [facility] daily for GERD OMEPRAZOLE 00688502405 No Longer Active Adam Yates MD Active ZOFRAN 8 MG ORAL TABLET 1 tab by mouth every 12 hours prn 4 ONDANSETRON HCL 00094801043 No Longer Active Adam Yates MD Active PHENADOZ 25 MG RECTAL SUPPOSITORY 1 every 4 hrs. PRN 2 PROMETHAZINE HCL 56515735296 No Longer Active Adam Yates MD A ctive POTASSIUM CHLORIDE 20 MEQ ORAL PACKET by mouth twice a day prn 2 POTASSIUM CHLORIDE 12498412038 No Longer Active Adam Carpenter MD Active PROMETHAZINE HCL 25 MG ORAL TABLET 1 Q. 4 hr. PRN PROMETHAZINE HCL 14118829411 No Longer Active Adam Yates MD Active INNOPRAN XL 120 MG ORAL CAPSULE EXTENDED RELEASE 24 HO UR Take one by mouth daily PROPRANOLOL HCL SR BEADS 69090264003 No Longer Active Adam Yates MD Active FLAGYL 500 MG ORAL TABLET 1 pill by mouth three times daily, for diarrhea METRONIDAZOLE 31737804209 No Longer Active Hope landers MD PhD Active DYAZIDE 37.5-25 MG ORAL CAPSULE 1 qd TRIA MTERENE-HCTZ 31819663216 No Longer Active Hope Benavidez MD PhD Active PROZAC 20 MG ORAL CAPSULE 1 q d FLUOXETINE HCL 76582822487 No Longer Active Hope Benavidez MD PhD Active SIMVASTATIN 40 MG ORAL TABLET 1 qd SIMVAS TATIN 20792320360 No Longer Active Adam Yates MD Active MELOXICAM 15 MG ORAL TABLET 1 qd MELOXICAM 98789626811 No Longer Active Adam Yates MD Active EXCEDRIN EXTRA STRENGTH 250-250-65 MG ORAL TABLET 1-2 q6h DE N headache [id number] 59134016915 Active Hope Benavidez MD PhD Active FLAGYL 500 MG ORAL TABLET 1 qid METRONIDAZOL E 64626713796 No Longer Active Adam Yates MD Active LEVAQUIN 750 MG ORAL TABLET 1 qd LEVOFLOXAC IN 24147040225 No Longer Active Adam Yates MD Active ADULT ASPIRIN LOW STRENGTH 81 MG ORAL TABLET DISINTEGRATING 1 qd ASPIRIN 98875190339 Active Hope Benavidez MD PhD Active LEVAQUIN 750 MG ORAL TABLET 1 qd LEVAQUIN 750 MG ORAL TABLET 459397 LEVOFLOXACIN Inactive FLAGYL 500 MG ORAL TABLET 1 qid FLAGYL 500 MG ORAL TABLET 831270 METRONIDAZOLE Inactive MELOXICAM 15 MG ORAL TABLET 1 qd MELOXICAM 15 MG ORAL TABLET 497232 MELOXICAM Inactive SIMVASTATIN 40 MG ORAL TABLET 1 qd SIMVASTATIN 40 MG ORAL TABLET 995985 SIMVASTATIN Inactive PROZAC 20 MG ORAL CAPSULE 1 q d PROZAC 20 MG ORAL CAPSULE 231128 FLUOXETINE HCL Inactive DYAZIDE 37.5-25 MG ORAL CAPSULE 1 qd 5 DYAZIDE 37.5-25 MG ORAL CAPSULE 170686 TRIAMTERENE-HCTZ Inactive INNOPRAN XL 120 MG ORAL CAPSULE EXTENDED RELEASE 24 HO UR Take one by mouth daily INNOPRAN XL 120 MG ORAL CAPSULE EXTENDED RELEASE 24 HOUR PROPRANOLOL HCL SR BEADS Inactive PROMETHAZINE HCL 25 MG ORAL TABLET 1 Q. 4 hr. PRN 2013 PROMETHAZINE HCL 25 MG ORAL TABLET 717862 PROMETHAZINE HCL Inactive POTASSIUM CHLORIDE 20 MEQ ORAL PACKET by mouth twice a day prn 2 POTASSIUM CHLORIDE 20 MEQ ORAL PACKET 9469382 POTASSIUM CHLORIDE Inactive PHENADOZ 25 MG RECTAL SUPPOSITORY 1 every 4 hrs. PRN 2 PHENADOZ 25 MG RECTAL SUPPOSITORY 614716 PROMETHAZINE HCL Inactive ZOFRAN 8 MG ORAL TABLET 1 tab by mouth every 12 hours prn 4 ZOFRAN 8 MG ORAL TABLET 653967 ONDANSETRON HCL Inactive OMEPRAZOLE 20 MG ORAL CAPSULE DELAYED RELEASE 1 tablet by mo uth daily for GERD OMEPRAZOLE 20 MG ORAL CAPSULE DELAYED RELEASE 19 8051 OMEPRAZOLE Inactive CYCLOBENZAPRINE HCL 10 MG ORAL TABLET 1 tablet by mout h three times daily as needed for headaches CYCLOBENZAPRINE HCL 10 MG ORAL TABLET 683145 CYCLOBENZAPRINE HCL Inactive VITAMIN D3 4000 IU 1 tab 3 times daily VITAMIN D3 4000 IU Inactive PROPRANOLOL HCL 80 MG ORAL TABLET 1 tab tue. and thur. PROPRANOLOL HCL 80 MG ORAL TABLET 005043 PROPRANOLOL HCL Inacti ve CYANOCOBALAMIN 1000 MCG/ML INJECTION SOLUTION 1 injection ev ruben 2 weeks CYANOCOBALAMIN 1000 MCG/ML INJECTION SOLUTION 30 8394 CYANOCOBALAMIN Inactive MAGNESIUM GLUCONATE 250 MG ORAL TABLET 1 tab tid 20 23/10/23 MAGNESIUM GLUCONATE 250 MG ORAL TABLET 520893 MAGNESIUM GLUCONATE Inactive LOMOTIL 2.5-0.025 MG ORAL TABLET 1 tab by mouth prn 20 23/10/23 LOMOTIL 2.5-0.025 MG ORAL TABLET 6702545 DIPHENOXYLATE-ATROPINE Inac tive FLORANEX ORAL PACKET 1 pack three times daily, for bowel health FLORANEX ORAL PACKET 71523134182 LACTOBACILLUS Inactive IRON 325 (65 Fe) MG ORAL TABLET 1 every other day 2015 IRON 325 (65 Fe) MG ORAL TABLET 084586 FERROUS SULFATE Inactive FLAGYL 500 MG ORAL TABLET 1 pill by mouth three times daily, for diarrhea FLAGYL 500 MG ORAL TABLET 745818 METRONIDAZOLE I nactive BACTRIM DS 800-160 MG ORAL TABLET 1 pill by mouth twice claudio y, for UTI BACTRIM DS 800-160 MG ORAL TABLET 159350 SULFAMETHOXAZOLE-TRIMETHOPRIM Inactive Advance Directives Directive Description Start [...] ... - Chemistry sodium, serum 138 mmol/L 549-045 0748/12/15 potassium, serum 4.0 mmol/L 3.5-5.2 chloride, serum [...] - Chem istry sodium, serum 142 mmol/L 239-344 2475/04/19 carbon dioxide, venous blood 30.2 mmol/L 21.0-32 [...] 0.00-1.00 Encounters Code Encounter Date Provider Facility CPT-37208 Level 2 Est. Patient 14:58:26 CDT Kylie boyd [facility] [place] CPT-59557 Level 3 Est. Patient 08:15:24 SATURATOR OPERATOR Kylie Lund [facility] CPT-70433 Level 2 Est. Patient 14:27:16 SATURATOR OPERATOR Kylie boyd [facility] [place] CPT-76518 Level 3 Est. Patient 17:54:48 CDT Kylie boyd [facility] [place] CPT-93254 Level 3 Est. Patient 16:26:30 CDT Kina blackmon [facility] CPT-71269 Level 3 New Patient 16:22:01 SATURATOR OPERATOR Adam Yates MD [facility] CPT-24722 Level 4 Est. Patient 17:00:48 CDT Kylie boyd [facility] [place] CPT-52805 Level 3 Est. Patient 13:15:54 CDT Kylie boyd [facility] [place] CPT-10938 Level 3 Est. Patient 09:10:11 CDT Kylie boyd [facility] [place] CPT-20377 Level 4 Est. Patient 12:08:30 SATURATOR OPERATOR Hope cohn MD PhD [facility] [place] CPT-88186 Level 4 Est. Patient 19:08:42 SATURATOR OPERATOR Hope cohn MD PhD [facility] [place] CPT-11459 Level 4 Est. Patient 20:04:51 CDT Hope cohn MD [facility] CPT-56838 Level 3 New Patient 01:46:11 SATURATOR OPERATOR Hope landers MD PhD [facility] [place] Procedures Code Procedure Name Date Entry Date Standard Desc ription CPT-28221 Venipuncture Draw Fee 10:59:04 CDT CPT-63004 CMP - LAB USE ONLY 10:59:04 CDT CPT-75253 CBC with Diff - LAB USE ONLY 10:59:03 CDT 2 CPT-J0897 Prolia 60 mg 15:46:54 SATURATOR OPERATOR CPT-86188 Abx/Therapy Injection 15:46:54 SATURATOR OPERATOR CPT-92000 Microalbumin - LAB USE ONLY 09:41:32 SATURATOR OPERATOR 20 23/01/15 CPT-05336 Free T4 - LAB USE ONLY 09:41:32 SATURATOR OPERATOR CPT-08273 TSH - LAB USE ONLY 09:41:32 SATURATOR OPERATOR CPT-46294 BMP - LAB USE ONLY 09:41:32 SATURATOR OPERATOR CPT-09639 Venipuncture Draw Fee 09:41:32 SATURATOR OPERATOR CPT-21423 First Vx - Ix admin for Medicare patients 11:19:30 CDT CPT-57128 Fluzone High-Dose Intramuscular Suspension 12/07 11:19:30 CDT CPT-J0897 Prolia 60 mg 14:55:42 CDT CPT-63026 Abx/Therapy Injection 14:55:42 CDT CPT-02858 Bone Density - XRAY USE ONLY 10:27:12 CDT 2 CPT-G0439 Subsequent Annual Wellness Exam 17:54:53 CDT CPT-63944 Foot, left, comp min 3V - XRAY USE ONLY 12:22:49 CDT CPT-G0009 Administration of Pneumococcal Vaccine 3 12:18:00 CDT CPT-55397 Pneumovax 23 Injection Injectable 25 MCG /0.5ML 12:18:00 CDT CPT-J0897 Prolia 60 mg 14:14:16 SATURATOR OPERATOR CPT-44505 Abx/Therapy Injection 14:14:15 SATURATOR OPERATOR CPT-12643 Lipid - LAB USE ONLY 10:01:52 SATURATOR OPERATOR 2 CPT-54604 Calcium - LAB USE ONLY 10:01:51 SATURATOR OPERATOR CPT-37756 Venipuncture Draw Fee 10:01:51 SATURATOR OPERATOR CPT-LR Lesion Removal 16:22:01 SATURATOR OPERATOR CPT-16025 TSH - LAB USE ONLY 14:26:02 CDT CPT-40220 CMP - LAB USE ONLY 14:26:01 CDT CPT-07932 CBC with Diff - LAB USE ONLY 14:26:01 CDT 2 CPT-70657 Venipuncture Draw Fee 14:26:01 CDT CPT-94960 First Vx - Ix admin for Medicare patients 13:27:08 CDT CPT-35450 Fluzone High-Dose Intramuscular Suspension 11/26 13:27:08 CDT CPT-G0438 Initial Annual Wellness Exam 14:19:57 CD T CPT-G0009 Administration of Pneumococcal Vaccine 9 11:36:25 CDT CPT-66830 Prevnar 13 Intramuscular Suspension 1 1:36:25 CDT CPT-39285 Prevnar 13 Intramuscular Suspension 1 0:40:58 CDT CPT-J0897 Prolia 60 mg 10:37:16 CDT CPT-09992 Abx/Therapy Injection 10:37:16 CDT CPT-J0897 Prolia 60 mg 16:09:34 SATURATOR OPERATOR CPT-J0897 Prolia 60 mg 11:10:35 SATURATOR OPERATOR CPT-68462 Abx/Therapy Injection 11:10:35 SATURATOR OPERATOR CPT-000 Give Appropriate Flu Vaccine 17:01:15 SATURATOR OPERATOR 2 CPT-34308 Fluzone High Dose (65+) 15:03:08 SATURATOR OPERATOR 02/15 CPT-54305 Immunization Single Admin 15:03:08 SATURATOR OPERATOR 2014 CPT-OV Office Visit 15:58:06 CDT CPT-J0897 Prolia 60 mg 08:45:38 CDT CPT-69262 Abx/Therapy Injection 08:45:38 CDT CPT-J3420 Vitamin B12 1000mcg (Cyanocobalamin) 09:26:20 SATURATOR OPERATOR CPT-03779 Abx/Therapy Injection 09:26:20 SATURATOR OPERATOR CPT-J3420 Vitamin B12 1000mcg (Cyanocobalamin) 09:44:40 SATURATOR OPERATOR CPT-88180 Abx/Therapy Injection 09:44:40 SATURATOR OPERATOR CPT-J3420 Vitamin B12 1000mcg (Cyanocobalamin) 09:15:54 SATURATOR OPERATOR CPT-20608 Abx/Therapy Injection 09:15:54 SATURATOR OPERATOR CPT-J3420 Vitamin B12 1000mcg (Cyanocobalamin) 09:46:44 SATURATOR OPERATOR CPT-98029 Abx/Therapy Injection 09:46:44 SATURATOR OPERATOR CPT-J3420 Vitamin B12 1000mcg (Cyanocobalamin) 09:47:34 SATURATOR OPERATOR CPT-13973 Abx/Therapy Injection 09:47:34 SATURATOR OPERATOR CPT-J3420 Vitamin B12 1000mcg (Cyanocobalamin) 14:35:50 SATURATOR OPERATOR CPT-J3420 Vitamin B12 1000mcg (Cyanocobalamin) 09:25:05 SATURATOR OPERATOR CPT-02363 Abx/Therapy Injection 09:25:05 SATURATOR OPERATOR CPT-G0008 Administration of Influenza Virus Vaccine 13:36:47 CDT CPT-43563 Fluzone High-Dose Intramuscular Suspension 11/15 13:36:47 CDT CPT-J0897 Prolia 60 mg 08:50:41 CDT CPT-53304 Abx/Therapy Injection 08:50:41 CDT CPT-93443 Bone Density 12:06:12 CDT CPT-32478 Bone Density 08:54:40 CDT CPT-OV Office Visit 15:37:02 CDT CPT-80133 Postop F/U Visit 15:47:49 CDT CPT-68311 Postop F/U Visit 15:21:02 CDT CPT-TCM[facility] Transitional Care Mgmt-High 07:52:27 CDT 20 20/06/01 CPT-72600 Venipuncture Draw Fee 13:51:18 CDT CPT-14066 Venipuncture Draw Fee 10:14:55 SATURATOR OPERATOR CPT-54686 Venipuncture Draw Fee 13:39:45 SATURATOR OPERATOR CPT-OV Office Visit 15:11:22 SATURATOR OPERATOR CPT-59297 Venipuncture Draw Fee 09:20:49 SATURATOR OPERATOR CPT-59465 Venipuncture Draw Fee 16:52:15 SATURATOR OPERATOR CPT-84786 Venipuncture Draw Fee 10:37:24 SATURATOR OPERATOR CPT-39870 Venipuncture Draw Fee 08:21:21 SATURATOR OPERATOR CPT-30797 Venipuncture Draw Fee 08:30:20 SATURATOR OPERATOR CPT-05377 Venipuncture Draw Fee 14:53:21 SATURATOR OPERATOR CPT-03308 Venipuncture Draw Fee 09:40:56 SATURATOR OPERATOR CPT-44121 Venipuncture Draw Fee 10:30:47 SATURATOR OPERATOR CPT-33249 Venipuncture Draw Fee 10:46:17 SATURATOR OPERATOR CPT-52034 Venipuncture Draw Fee 11:12:45 SATURATOR OPERATOR CPT-21690 Venipuncture Draw Fee 09:53:33 SATURATOR OPERATOR CPT-58614 Venipuncture Draw Fee 11:53:51 SATURATOR OPERATOR CPT-99095 Venipuncture Draw Fee 10:33:50 SATURATOR OPERATOR CPT-44984 Venipuncture Draw Fee 10:05:01 SATURATOR OPERATOR CPT-30374 Venipuncture Draw Fee 14:32:52 SATURATOR OPERATOR CPT-70779 Venipuncture Draw Fee 09:46:13 SATURATOR OPERATOR CPT-20665 Venipuncture Draw Fee 11:34:27 SATURATOR OPERATOR CPT-49818 Venipuncture Draw Fee 13:17:16 SATURATOR OPERATOR CPT-27005 Venipuncture Draw Fee 12:05:39 CDT CPT-69737 Venipuncture Draw Fee 12:49:12 CDT CPT-76334 Venipuncture Draw Fee 12:37:18 CDT CPT-38290 Venipuncture Draw Fee 10:57:11 CDT CPT-97192 Venipuncture Draw Fee 13:47:40 CDT CPT-29949 Venipuncture Draw Fee 10:02:17 CDT CPT-74517 TB Tubersol 17:32:32 CDT CPT-OV Office Visit 16:21:53 CDT CPT-OV Office Visit 15:49:22 CDT CPT-OV Office Visit 17:16:31 CDT CPT-OV Office Visit 10:43:31 CDT
--- OUTSIDE RECORDS SUMMARY | 2019-02-09 12:46 | XMS REPORT | Clinical Summary ---
Author Author Renaldo, Florecita Munoz Organization [facility] [employer] Address Unknown Phone Unavailable Allergies, Adverse Reactions, [...] PhD Hyperpotassemia GERD 530.81 Resolved Kylie Yokum PLACEMENT SPECIALIST Esophageal reflux Health maintenance exam V70.0 Resolved Adolfo Yates MD Routine general medical examination at a health care facility Anemia 285.9 Resolved Kylie Yanet PLACEMENT SPECIALIST Anemia, unspecified Personal history of malignant neoplasm of large intestine V10.05 Active Adam Yates MD Personal history of malignant neoplasm of large intestine Hypomagnesemia 275.2 Resolved Kylie Yanet PLACEMENT SPECIALIST Disorders of magnesium metabolism Weakness 780.79 [...] Sebaceous cyst, scalp 706.2 Resolved Kylie Yokum PLACEMENT SPECIALIST Sebaceous cyst Cervical lymphadenopathy, anterior, left 785.6 Resolv ed Kylie Yokum PLACEMENT SPECIALIST Enlargement of lymph nodes Need for prophylactic vaccination and inoculation against in fluenza V04.81 Resolved Adam Yates MD Need for prophylactic vaccination and inoculation against influenza Preventive health care V70.0 Active Kylie Yokum PLACEMENT SPECIALIST Routine general medical examination at a health care facility Thyroid nodule, left 241.0 Active Kylie Yokum A PRN Nontoxic uninodular goiter Screening mammogram V76.12 Active Kylie Yokum AP RN Other screening mammogram Mandy 706.2 Resolved Kylie Yokum PLACEMENT SPECIALIST Sebaceous cyst Colon cancer, ascending 153.6 Resolved Kylie Yok um PLACEMENT SPECIALIST Malignant neoplasm of ascending colon Foot pain, left 729.5 Active Sulema Naff 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 Pain in limb Splinter 919.6 Active Kylie Yokum PLACEMENT SPECIALIST Superficial foreign body (splinter) of other, multiple, and unspecified sites, without major open wound and without mention of infection Rash 782.1 Active Kylie Yokum PLACEMENT SPECIALIST R aurora and other nonspecific skin eruption Cyst 706.2 Active Kylie Yokum PLACEMENT SPECIALIST S ebaceous cyst ABDOMINAL PAIN, RIGHT LOWER QUADRANT ICD-789.03 Inactive Kina Joshua PLACEMENT SPECIALIST ADENOCARCINOMA, COLON, 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 Dick Yates MD ABDOMINAL PAIN, GENERALIZED ICD-789.07 Inactive Hope Benavidez MD PhD FEVER UNSPECIFIED ICD-780.60 Inactive Hope cohn MD PhD UNSPECIFIED VENOUS INSUFFICIENCY ICD-459.81 Bahama ctive Adam Yates MD ADENOCARCINOMA, 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 Inac tive Hope Benavidez MD PhD Hyperkalemia ICD-276.7 Inactive Hope Benavidez MD PhD GERD ICD-530.81 Inactive Kylieshubham Holt PLACEMENT SPECIALIST 2015 Health maintenance exam ICD-V70.0 Bam Yates MD Anemia ICD-285.9 Inactive Kylieshubham Holt PLACEMENT SPECIALIST 07/24 Hypomagnesemia ICD-275.2 Inactive Kylie Holt PLACEMENT SPECIALIST Weakness ICD-780.79 Inactive Hope Benavidez MD [...] Sebaceous cyst, scalp ICD-706.2 Inactive Tracy Holt PLACEMENT SPECIALIST Cervical lymphadenopathy, anterior, left ICD-785.6 Inactive Kylie Lundum PLACEMENT SPECIALIST Need for prophylactic vaccination and inoculation against in fluenza ICD-V04.81 Inactive Adam Yates MD Mandy ICD-706.2 Inactive Kylie Holt PLACEMENT SPECIALIST 07/20 Colon cancer, ascending ICD-153.6 Inactive Bravo Holt PLACEMENT SPECIALIST Medication List Medication Instructions Start Date Stop Date Generic Name NDC Status Provider Patient Instruction VOLTAREN 1 % TRANSDERMAL GEL apply q 6-8 hour to left arm as needed for pain DICLOFENAC SODIUM [id number] Active Kylie Holt AMY Active COQ10 100 MG ORAL CAPSULE 1 daily COENZYME Q10 957934 40750 Active LETY Nation Active VITAMIN D3 2000 UNIT ORAL CAPSULE Melaleuca-One daily CHOLECALCIFEROL 86630049974 Active Kylie Holt APRN Active PROBIOTIC DAILY ORAL CAPSULE Take one daily PROBIO TIC PRODUCT 73193857684 Active Kylie Holt AMY Active IRON 325 (65 Fe) MG ORAL TABLET 1 every other day FERROUS SULFATE 21544750719 No Longer Active Kylie Holt AMY Active FLORANEX ORAL PACKET 1 pack three times daily, for bowel health LACTOBACILLUS 21627612390 No Longer Active Kylie Holt APRN Active LOMOTIL 2.5-0.025 MG ORAL TABLET 1 tab by mouth prn 20 23/10/23 DIPHENOXYLATE-ATROPINE 77475453928 No Longer Active Kylie Holt PLACEMENT SPECIALIST Active MAGNESIUM GLUCONATE 250 MG ORAL TABLET 1 tab tid 23/10/23 MAGNESIUM GLUCONATE 74446015359 No Longer Active Kylie Yokum PLACEMENT SPECIALIST Active CYANOCOBALAMIN 1000 MCG/ML INJECTION SOLUTION 1 injection ev ruben 2 weeks CYANOCOBALAMIN 75146007231 No Longer Active Kylie Lund um PLACEMENT SPECIALIST Active ATENOLOL 25 MG ORAL TABLET 1/2 pill by mouth daily, fo r headaches, blood pressure ATENOLOL 60709642133 Active Kylie Yokum PLACEMENT SPECIALIST Active PROPRANOLOL HCL 80 MG ORAL TABLET 1 tab tue. and thur. PROPRANOLOL HCL 24958420625 No Longer Active Hope Benavidez MD PhD A ctive VITAMIN D3 4000 IU 1 tab 3 times daily VITAMIN D3 4000 IU No Longer Active Hope Benavidez MD PhD Active BACTRIM DS 800-160 MG ORAL TABLET 1 pill by mouth twice claudio y, for UTI SULFAMETHOXAZOLE-TRIMETHOPRIM 67813256426 No Longer Active Hope Benavidez MD PhD Active PROLIA 60 MG/ML SUBCUTANEOUS SOLUTION 1 shot every 6 months for osteoprosis DENOSUMAB 37071845970 Active Hope Benavidez MD PhD Active CALCIUM + D + K 750-500-40 MG-UNT-MCG ORAL TABLET 1 tab by m out twice daily CALCIUM-VITAMIN D-VITAMIN K 79802121791 Active Hope valdez MD PhD Active DAILY VALUE MULTIVITAMIN ORAL TABLET 1 tab by mouth twice daily 201 05/16/14 MULTIPLE VITAMIN 10074233844 Active Hope Benavidez MD PhD Acti ve FISH OIL 306 MG CAPS 1 tab by mouth three times daily OMEGA-3 FATTY ACIDS 70977161759 Active Hope Benavidez MD PhD Active LUTEIN 10 MG ORAL TABLET 1 tab daily LUTEIN 24652405 408 Active Hope Benavidez MD PhD Active TRIAMTERENE-HCTZ 37.5-25 MG ORAL TABLET 1 tab by mouth daily 10/22 TRIAMTERENE-HCTZ 28871579855 Active LETY Rossi Activ e CYCLOBENZAPRINE HCL 10 MG ORAL TABLET 1 tablet by mout h three times daily as needed for headaches CYCLOBENZAPRINE HCL 59536502243 No Longer Active Adam Yates MD Active OMEPRAZOLE 20 MG ORAL CAPSULE DELAYED RELEASE 1 tablet by mo [facility] daily for GERD OMEPRAZOLE 39616155221 No Longer Active Adam Yates MD Active ZOFRAN 8 MG ORAL TABLET 1 tab by mouth every 12 hours prn 4 ONDANSETRON HCL 38558315084 No Longer Active Adam Yates MD Active PHENADOZ 25 MG RECTAL SUPPOSITORY 1 every 4 hrs. PRN 2 PROMETHAZINE HCL 85515191970 No Longer Active Adam Yates MD A ctive POTASSIUM CHLORIDE 20 MEQ ORAL PACKET by mouth twice a day prn 2 POTASSIUM CHLORIDE 43583228456 No Longer Active Adam Carpenter MD Active PROMETHAZINE HCL 25 MG ORAL TABLET 1 Q. 4 hr. PRN PROMETHAZINE HCL 11015774373 No Longer Active Adam Yates MD Active INNOPRAN XL 120 MG ORAL CAPSULE EXTENDED RELEASE 24 HO UR Take one by mouth daily PROPRANOLOL HCL SR BEADS 34172789191 No Longer Active Adam Yates MD Active FLAGYL 500 MG ORAL TABLET 1 pill by mouth three times daily, for diarrhea METRONIDAZOLE 76721269637 No Longer Active Hope landers MD PhD Active DYAZIDE 37.5-25 MG ORAL CAPSULE 1 qd TRIA MTERENE-HCTZ 10465620560 No Longer Active Hope Benavidez MD PhD Active PROZAC 20 MG ORAL CAPSULE 1 q d FLUOXETINE HCL 67967447746 No Longer Active Hope Benavidez MD PhD Active SIMVASTATIN 40 MG ORAL TABLET 1 qd SIMVAS TATIN 84870431853 No Longer Active Adam Yates MD Active MELOXICAM 15 MG ORAL TABLET 1 qd MELOXICAM 10105674857 No Longer Active Adam Yates MD Active IMODIUM A-D 2 MG ORAL TABLET 2 onset at diarrhea and prn. LOPERAMIDE HCL 92025676384 Active Hope Benavidez MD PhD Active EXCEDRIN EXTRA STRENGTH 250-250-65 MG ORAL TABLET 1-2 q6h IA N headache [id number] 84323648974 Active Hope Benavidez MD PhD Active FLAGYL 500 MG ORAL TABLET 1 qid METRONIDAZOL E 50827848509 No Longer Active Adam Yates MD Active LEVAQUIN 750 MG ORAL TABLET 1 qd LEVOFLOXAC IN 13699809715 No Longer Active Adam Yates MD Active ADULT ASPIRIN LOW STRENGTH 81 MG ORAL TABLET DISINTEGRATING 1 qd ASPIRIN 32973513886 Active Hope Benavidez MD PhD Active LEVAQUIN 750 MG ORAL TABLET 1 qd LEVAQUIN 750 MG ORAL TABLET 646854 LEVOFLOXACIN Inactive FLAGYL 500 MG ORAL TABLET 1 qid FLAGYL 500 MG ORAL TABLET 855925 METRONIDAZOLE Inactive MELOXICAM 15 MG ORAL TABLET 1 qd MELOXICAM 15 MG ORAL TABLET 246734 MELOXICAM Inactive SIMVASTATIN 40 MG ORAL TABLET 1 qd SIMVASTATIN 40 MG ORAL TABLET 044351 SIMVASTATIN Inactive PROZAC 20 MG ORAL CAPSULE 1 q d PROZAC 20 MG ORAL CAPSULE 009623 FLUOXETINE HCL Inactive DYAZIDE 37.5-25 MG ORAL CAPSULE 1 qd 5 DYAZIDE 37.5-25 MG ORAL CAPSULE 382260 TRIAMTERENE-HCTZ Inactive INNOPRAN XL 120 MG ORAL CAPSULE EXTENDED RELEASE 24 HO UR Take one by mouth daily INNOPRAN XL 120 MG ORAL CAPSULE EXTENDED RELEASE 24 HOUR PROPRANOLOL HCL SR BEADS Inactive PROMETHAZINE HCL 25 MG ORAL TABLET 1 Q. 4 hr. PRN 2013 PROMETHAZINE HCL 25 MG ORAL TABLET 297282 PROMETHAZINE HCL Inactive POTASSIUM CHLORIDE 20 MEQ ORAL PACKET by mouth twice a day prn 2 POTASSIUM CHLORIDE 20 MEQ ORAL PACKET 6533183 POTASSIUM CHLORIDE Inactive PHENADOZ 25 MG RECTAL SUPPOSITORY 1 every 4 hrs. PRN 2 014/09/10 PHENADOZ 25 MG RECTAL SUPPOSITORY 815795 PROMETHAZINE HCL Inactive ZOFRAN 8 MG ORAL TABLET 1 tab by mouth every 12 hours prn 4 ZOFRAN 8 MG ORAL TABLET 104569 ONDANSETRON HCL Inactive OMEPRAZOLE 20 MG ORAL CAPSULE DELAYED RELEASE 1 tablet by mo uth daily for GERD OMEPRAZOLE 20 MG ORAL CAPSULE DELAYED RELEASE 19 8051 OMEPRAZOLE Inactive CYCLOBENZAPRINE HCL 10 MG ORAL TABLET 1 tablet by mout h three times daily as needed for headaches CYCLOBENZAPRINE HCL 10 MG ORAL TABLET 223034 CYCLOBENZAPRINE HCL Inactive VITAMIN D3 4000 IU 1 tab 3 times daily VITAMIN D3 4000 IU Inactive PROPRANOLOL HCL 80 MG ORAL TABLET 1 tab tue. and thur. PROPRANOLOL HCL 80 MG ORAL TABLET 524836 PROPRANOLOL HCL Inacti ve CYANOCOBALAMIN 1000 MCG/ML INJECTION SOLUTION 1 injection ev ruben 2 weeks CYANOCOBALAMIN 1000 MCG/ML INJECTION SOLUTION 30 9594 CYANOCOBALAMIN Inactive MAGNESIUM GLUCONATE 250 MG ORAL TABLET 1 tab tid 20 23/10/23 MAGNESIUM GLUCONATE 250 MG ORAL TABLET 215894 MAGNESIUM GLUCONATE Inactive LOMOTIL 2.5-0.025 MG ORAL TABLET 1 tab by mouth prn 20 23/10/23 LOMOTIL 2.5-0.025 MG ORAL TABLET 1039352 DIPHENOXYLATE-ATROPINE Inac tive FLORANEX ORAL PACKET 1 pack three times daily, for bowel health FLORANEX ORAL PACKET LACTOBACILLUS Inactive IRON 325 (65 Fe) MG ORAL TABLET 1 every other day 2015 IRON 325 (65 Fe) MG ORAL TABLET 851341 FERROUS SULFATE Inactive FLAGYL 500 MG ORAL TABLET 1 pill by mouth three times daily, for diarrhea FLAGYL 500 MG ORAL TABLET 571115 METRONIDAZOLE I nactive BACTRIM DS 800-160 MG ORAL TABLET 1 pill by mouth twice claudio y, for UTI BACTRIM DS 800-160 MG ORAL TABLET 049235 SULFAMETHOXAZOLE-TRIMETHOPRIM Inactive Advance Directives Directive Description Start [...] ... - Chemistry sodium, serum 138 mmol/L 899-266 8124/12/15 potassium, serum 4.0 mmol/L 3.5-5.2 chloride, serum [...] 11 .0-15.0 platelet count 157 THOUSAND/UL 10*3/mm3 218-942 1466/04/20 mean platelet volume 8.9 fL 7.5-12.5 Lab Report: CE[facility] - Serology carcinoembryonic antigen 0.9 ng/mL Encounters Code Encounter Date Provider Facility CPT-98580 Level 3 Est. Patient 08:15:24 SOUND ENGINEER AUDIO CONTROL Kylie Lund [facility] CPT-84710 Level 2 Est. Patient 14:27:16 SOUND ENGINEER AUDIO CONTROL Kylie Lund [facility] CPT-29388 Level 3 Est. Patient 17:54:48 CDT Kylie Lund [facility] CPT-38979 Level 3 Est. Patient 16:26:30 CDT Kina blackmon [facility] CPT-51032 Level 3 New Patient 16:22:01 SOUND ENGINEER AUDIO CONTROL Adam Yates MD [facility] CPT-02267 Level 4 Est. Patient 17:00:48 CDT Kylie Lund [facility] CPT-28974 Level 3 Est. Patient 13:15:54 CDT Kylie Lund [facility] CPT-91077 Level 3 Est. Patient 09:10:11 CDT Kylie Lund [facility] CPT-92425 Level 4 Est. Patient 12:08:30 SOUND ENGINEER AUDIO CONTROL Hope cohn MD [facility] CPT-81292 Level 4 Est. Patient 19:08:42 SOUND ENGINEER AUDIO CONTROL Hope cohn MD PhD [facility] CPT-52588 Level 4 Est. Patient 20:04:51 CDT Hope cohn MD PhD [facility] CPT-90518 Level 3 New Patient 01:46:11 SOUND ENGINEER AUDIO CONTROL Hope landers MD PhD [facility] Procedures Code Procedure Name Date Entry Date Standard Desc ription CPT-J0897 Prolia 60 mg 15:46:54 SOUND ENGINEER AUDIO CONTROL CPT-10106 Abx/Therapy Injection 15:46:54 SOUND ENGINEER AUDIO CONTROL CPT-42574 Microalbumin - LAB USE ONLY 09:41:32 SOUND ENGINEER AUDIO CONTROL 20 23/01/15 CPT-18251 Free T4 - LAB USE ONLY 09:41:32 SOUND ENGINEER AUDIO CONTROL CPT-55294 TSH - LAB USE ONLY 09:41:32 SOUND ENGINEER AUDIO CONTROL CPT-88677 BMP - LAB USE ONLY 09:41:32 SOUND ENGINEER AUDIO CONTROL CPT-27821 Venipuncture Draw Fee 09:41:32 SOUND ENGINEER AUDIO CONTROL CPT-03505 First Vx - Ix admin for Medicare patients 11:19:30 CDT CPT-18077 Fluzone High-Dose Intramuscular Suspension 12/07 11:19:30 CDT CPT-J0897 Prolia 60 mg 14:55:42 CDT CPT-04191 Abx/Therapy Injection 14:55:42 CDT CPT-05386 Bone Density - XRAY USE ONLY 10:27:12 CDT 2 CPT-G0439 [facility] Annual Wellness Exam 17:54:53 CDT CPT-26955 Foot, left, comp min 3V - XRAY USE ONLY 12:22:49 CDT CPT-G0009 Administration of Pneumococcal Vaccine 3 12:18:00 CDT CPT-91813 Pneumovax 23 Injection Injectable 25 MCG /0.5ML 12:18:00 CDT CPT-J0897 Prolia 60 mg 14:14:16 SOUND ENGINEER AUDIO CONTROL CPT-77717 Abx/Therapy Injection 14:14:15 SOUND ENGINEER AUDIO CONTROL CPT-23061 Lipid - LAB USE ONLY 10:01:52 SOUND ENGINEER AUDIO CONTROL 2 CPT-14491 Calcium - LAB USE ONLY 10:01:51 SOUND ENGINEER AUDIO CONTROL CPT-01858 Venipuncture Draw Fee 10:01:51 SOUND ENGINEER AUDIO CONTROL CPT-LR Lesion Removal 16:22:01 SOUND ENGINEER AUDIO CONTROL CPT-23692 TSH - LAB USE ONLY 14:26:02 CDT CPT-80242 CMP - LAB USE ONLY 14:26:01 CDT CPT-99949 CBC with Diff - LAB USE ONLY 14:26:01 CDT 2 CPT-25090 Venipuncture Draw Fee 14:26:01 CDT CPT-45888 First Vx - Ix admin for Medicare patients 13:27:08 CDT CPT-22982 Fluzone High-Dose Intramuscular Suspension 11/26 13:27:08 CDT CPT-G0438 Initial Annual Wellness Exam 14:19:57 CD T CPT-G0009 Administration of Pneumococcal Vaccine 9 11:36:25 CDT CPT-14845 Prevnar 13 Intramuscular Suspension 1 1:36:25 CDT CPT-06690 Prevnar 13 Intramuscular Suspension 1 0:40:58 CDT CPT-J0897 Prolia 60 mg 10:37:16 CDT CPT-03010 Abx/Therapy Injection 10:37:16 CDT CPT-J0897 Prolia 60 mg 16:09:34 SOUND ENGINEER AUDIO CONTROL CPT-J0897 Prolia 60 mg 11:10:35 SOUND ENGINEER AUDIO CONTROL CPT-87781 Abx/Therapy Injection 11:10:35 SOUND ENGINEER AUDIO CONTROL CPT-000 Give Appropriate Flu Vaccine 17:01:15 SOUND ENGINEER AUDIO CONTROL 2 CPT-07512 Fluzone High Dose (65+) 15:03:08 SOUND ENGINEER AUDIO CONTROL 02/15 CPT-69309 Immunization Single Admin 15:03:08 SOUND ENGINEER AUDIO CONTROL 2014 CPT-OV Office Visit 15:58:06 CDT CPT-J0897 Prolia 60 mg 08:45:38 CDT CPT-69261 Abx/Therapy Injection 08:45:38 CDT CPT-J3420 Vitamin B12 1000mcg (Cyanocobalamin) 09:26:20 SOUND ENGINEER AUDIO CONTROL CPT-86731 Abx/Therapy Injection 09:26:20 SOUND ENGINEER AUDIO CONTROL CPT-J3420 Vitamin B12 1000mcg (Cyanocobalamin) 09:44:40 SOUND ENGINEER AUDIO CONTROL CPT-23195 Abx/Therapy Injection 09:44:40 SOUND ENGINEER AUDIO CONTROL CPT-J3420 Vitamin B12 1000mcg (Cyanocobalamin) 09:15:54 SOUND ENGINEER AUDIO CONTROL CPT-83207 Abx/Therapy Injection 09:15:54 SOUND ENGINEER AUDIO CONTROL CPT-J3420 Vitamin B12 1000mcg (Cyanocobalamin) 09:46:44 SOUND ENGINEER AUDIO CONTROL CPT-25561 Abx/Therapy Injection 09:46:44 SOUND ENGINEER AUDIO CONTROL CPT-J3420 Vitamin B12 1000mcg (Cyanocobalamin) 09:47:34 SOUND ENGINEER AUDIO CONTROL CPT-61062 Abx/Therapy Injection 09:47:34 SOUND ENGINEER AUDIO CONTROL CPT-J3420 Vitamin B12 1000mcg (Cyanocobalamin) 14:35:50 SOUND ENGINEER AUDIO CONTROL CPT-J3420 Vitamin B12 1000mcg (Cyanocobalamin) 09:25:05 SOUND ENGINEER AUDIO CONTROL CPT-37615 Abx/Therapy Injection 09:25:05 SOUND ENGINEER AUDIO CONTROL CPT-G0008 Administration of Influenza Virus Vaccine 13:36:47 CDT CPT-96494 Fluzone High-Dose Intramuscular Suspension 11/15 13:36:47 CDT CPT-J0897 Prolia 60 mg 08:50:41 CDT CPT-21094 Abx/Therapy Injection 08:50:41 CDT CPT-40801 Bone Density 12:06:12 CDT CPT-03711 Bone Density 08:54:40 CDT CPT-OV Office Visit 15:37:02 CDT CPT-49332 Postop F/U Visit 15:47:49 CDT CPT-31833 Postop F/U Visit 15:21:02 CDT CPT-[facility] Transitional Care Mgmt-High 07:52:27 CDT 20 20/06/01 CPT-20118 Venipuncture Draw Fee 13:51:18 CDT CPT-94060 Venipuncture Draw Fee 10:14:55 SOUND ENGINEER AUDIO CONTROL CPT-91903 Venipuncture Draw Fee 13:39:45 SOUND ENGINEER AUDIO CONTROL CPT-OV Office Visit 15:11:22 SOUND ENGINEER AUDIO CONTROL CPT-84035 Venipuncture Draw Fee 09:20:49 SOUND ENGINEER AUDIO CONTROL CPT-88558 Venipuncture Draw Fee 16:52:15 SOUND ENGINEER AUDIO CONTROL CPT-74381 Venipuncture Draw Fee 10:37:24 SOUND ENGINEER AUDIO CONTROL CPT-18004 Venipuncture Draw Fee 08:21:21 SOUND ENGINEER AUDIO CONTROL CPT-80552 Venipuncture Draw Fee 08:30:20 SOUND ENGINEER AUDIO CONTROL CPT-16451 Venipuncture Draw Fee 14:53:21 SOUND ENGINEER AUDIO CONTROL CPT-51196 Venipuncture Draw Fee 09:40:56 SOUND ENGINEER AUDIO CONTROL CPT-67004 Venipuncture Draw Fee 10:30:47 SOUND ENGINEER AUDIO CONTROL CPT-61010 Venipuncture Draw Fee 10:46:17 SOUND ENGINEER AUDIO CONTROL CPT-32340 Venipuncture Draw Fee 11:12:45 SOUND ENGINEER AUDIO CONTROL CPT-87925 Venipuncture Draw Fee 09:53:33 SOUND ENGINEER AUDIO CONTROL CPT-65606 Venipuncture Draw Fee 11:53:51 SOUND ENGINEER AUDIO CONTROL CPT-35454 Venipuncture Draw Fee 10:33:50 SOUND ENGINEER AUDIO CONTROL CPT-80086 Venipuncture Draw Fee 10:05:01 SOUND ENGINEER AUDIO CONTROL CPT-70329 Venipuncture Draw Fee 14:32:52 SOUND ENGINEER AUDIO CONTROL CPT-77739 Venipuncture Draw Fee 09:46:13 SOUND ENGINEER AUDIO CONTROL CPT-73517 Venipuncture Draw Fee 11:34:27 SOUND ENGINEER AUDIO CONTROL CPT-00335 Venipuncture Draw Fee 13:17:16 SOUND ENGINEER AUDIO CONTROL CPT-57398 Venipuncture Draw Fee 12:05:39 CDT CPT-91007 Venipuncture Draw Fee 12:49:12 CDT CPT-07789 Venipuncture Draw Fee 12:37:18 CDT CPT-08065 Venipuncture Draw Fee 10:57:11 CDT CPT-80610 Venipuncture Draw Fee 13:47:40 CDT CPT-88404 Venipuncture Draw Fee 10:02:17 CDT CPT-60446 TB Tubersol 17:32:32 CDT CPT-OV Office Visit 16:21:53 CDT CPT-OV Office Visit 15:49:22 CDT CPT-OV Office Visit 17:16:31 CDT CPT-OV Office Visit 10:43:31 CDT
--- OUTSIDE RECORDS SUMMARY | 2019-02-09 12:46 | XMS REPORT | Clinical Summary ---
Author Author Admin, Florecita Munoz Organization [facility] [employer] Address Unknown Phone Unavailable Allergies, Adverse Reactions, [...] Disorders of magnesium metabolism Weakness 780.79 Resolved Hoep Benavidez MD PhD Other malaise and fatigue [...] Sebaceous cyst, scalp 706.2 Resolved Kylie Yokum [employer] Sebaceous cyst Cervical lymphadenopathy, anterior, left 785.6 Resolv ed Kylie Yokum [employer] Enlargement of lymph nodes Need for prophylactic vaccination and inoculation against in fluenza V04.81 Resolved Adam Yates MD Need for prophylactic vaccination and inoculation against influenza Preventive health care V70.0 Active Kylie Yokum [employer] TE[employer] Routine general medical examination at a health care facility Thyroid nodule, left 241.0 Active Kylie Yokum A PRN Nontoxic uninodular goiter Screening mammogram V76.12 Active Kylie Yogabbium AP RN Other screening mammogram Mandy 706.2 Resolved Kylie Yokum [employer] TE[employer] Sebaceous cyst Colon cancer, ascending 153.6 Resolved Kylie Yok um [employer] TE[employer] Malignant neoplasm of ascending colon Foot pain, left 729.5 Active Sulema Naff [employer] HELPER Pain in limb Splinter 919.6 Active Kylie Yokum [employer] TE[employer] Superficial foreign body (splinter) of other, multiple, and unspecified sites, without major open wound and without mention of infection ABDOMINAL PAIN, RIGHT LOWER QUADRANT ICD-789.03 Inactive Kina Joshua [employer] TE[employer] ADENOCARCINOMA, COLON, 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 Dick Yates MD ABDOMINAL PAIN, GENERALIZED ICD-789.07 Inactive Hope Benavidez MD PhD FEVER UNSPECIFIED ICD-780.60 Inactive Hope cohn MD PhD UNSPECIFIED VENOUS INSUFFICIENCY ICD-459.81 Hester ctive Adam Yates MD ADENOCARCINOMA, 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 Inac tive Hope Benavidez MD PhD Hyperkalemia ICD-276.7 Inactive Hope Benavidez MD PhD GERD ICD-530.81 Inactive Kylie Holt [employer]AL[employer]OTH TESTER 2015 Health maintenance exam ICD-V70.0 Inactive Adolfo Yates MD Anemia ICD-285.9 Inactive Kylie Holt [employer]OTH TESTER 07/24 Hypomagnesemia ICD-275.2 Inactive Kylie Holt [employer] TE[employer] Weakness ICD-780.79 Inactive Hope Benavidez MD [...] Sebaceous cyst, scalp ICD-706.2 Inactive Tracy Holt [employer]OTH TE[employer] Cervical lymphadenopathy, anterior, left ICD-785.6 Inactive Kylie Holt [employer] TE[employer] Need for prophylactic vaccination and inoculation against in fluenza ICD-V04.81 Inactive Adam Yates MD Mnady ICD-706.2 Inactive Kylie Holt [employer]AL[employer]OTH TE[employer] 07/20 Colon cancer, ascending ICD-153.6 Inactive Gabbi Holt [employer] TE[employer] Medication List Medication Instructions Start Date Stop Date Generic Name NDC Status Provider Patient Instruction COQ10 100 MG ORAL CAPS 1 daily COENZYME Q10 805792310 20 Active LETY Nation Active VITAMIN D3 2000 UNIT ORAL CAPS Melaleuca-One daily CHOLECALCIFEROL 03566279636 Active Kylie Holt [employer]OTH TESTER Active PROBIOTIC DAILY ORAL CAPS Take one daily PROBIOTIC PRODUCT 22515612797 Active Kylie Holt [employer]ALITY [employer]OTH TESTER Active IRON 325 (65 FE) MG TABS 1 every other day FERR OUS SULFATE 71182775377 No Longer Active Kylie Holt [employer]AL[employer]OTH TESTER Active FLORANEX PACK 1 pack three times daily, for bowel health LACTOBACILLUS 53299028397 No Longer Active Kylie Holt APRN Active LOMOTIL 2.5-0.025 MG TABS 1 tab by mouth prn 4 DIPHENOXYLATE-ATROPINE 08551683504 No Longer Active Kylie Lundum [employer]OTH TESTER Active MAGNESIUM GLUCONATE 250 MG TABS 1 tab tid 4 MAGNESIUM GLUCONATE 54385526066 No Longer Active Kylie Lundum [employer]AL[employer]OTH TESTER Active CYANOCOBALAMIN 1000 MCG/ML INJ SOLN 1 injection every 2 weeks 20 20/01/03 CYANOCOBALAMIN 80920039793 No Longer Active Kylie Lundum [employer] TE[employer] Active ATENOLOL 25 MG ORAL TABS 1/2 pill by mouth daily, for headac hes, blood pressure ATENOLOL 69999244846 Active Kylie Yanet [employer]OTH TESTER Active PROPRANOLOL HCL 80 MG TABS 1 tab tue. and thur. 04/10 PROPRANOLOL HCL 28148332064 No Longer Active Hope Benavidez MD PhD A ctive VITAMIN D3 4000 IU 1 tab 3 times daily VITAMIN D3 4000 IU No Longer Active Hope Benavidez MD PhD Active BACTRIM DS 800-160 MG TABS 1 pill by mouth twice daily, for UTI SULFAMETHOXAZOLE-TRIMETHOPRIM 93773502404 No Longer Active A attila Benavidez MD PhD Active PROLIA 60 MG/ML SOLN 1 shot every 6 months for osteoprosis DENOSUMAB 27724158406 Active Hope Benavidez MD PhD Active CALCIUM + D + K 750-500-40 MG-UNT-MCG TABS 1 tab by mouth tw ice daily CALCIUM-VITAMIN D-VITAMIN K 34652151192 Active Hope landers MD PhD Active DAILY VALUE MULTIVITAMIN TABS 1 tab by mouth twice daily MULTIPLE VITAMIN 85232628985 Active Hope Benavidez MD PhD Active FISH OIL 306 MG CAPS 1 tab by mouth three times daily OMEGA-3 FATTY ACIDS 57056515381 Active Hope Benavidez MD PhD Active LUTEIN 10 MG TABS 1 tab daily LUTEIN 97379323085 Act cash Hope Benavidez MD PhD Active TRIAMTERENE-HCTZ 37.5-25 MG TABS 1 tab by mouth daily TRIAMTERENE-HCTZ 54107950638 Active Kylie Holt APRN Active CYCLOBENZAPRINE HCL 10 MG TABS 1 tablet by mouth three times daily as needed for headaches CYCLOBENZAPRINE HCL 65028565953 No Longe r Active Adam Yates MD Active OMEPRAZOLE 20 MG CPDR 1 tablet by mouth daily for GERD OMEPRAZOLE 85386924204 No Longer Active Adam Yates MD A ctive ZOFRAN 8 MG TABS 1 tab by mouth every 12 hours prn 201 05/16/09 ONDANSETRON HCL 98534566362 No Longer Active Adam Yates MD Active PHENADOZ 25 MG SUPP 1 every 4 hrs. PRN PROMETHA ZINE HCL 27759225390 No Longer Active Adam Yates MD Active POTASSIUM CHLORIDE 20 MEQ PACK by mouth twice a day prn POTASSIUM CHLORIDE 15649503080 No Longer Active Adam Yates MD Active PROMETHAZINE HCL 25 MG TABS 1 Q. 4 hr. PRN PROM ETHAZINE HCL 62145578593 No Longer Active Adam Yates MD Active INNOPRAN XL 120 MG [id number] Take one by mouth daily 2 PROPRANOLOL HCL SR BEADS 81339119682 No Longer Active Adam Yates MD A ctive FLAGYL 500 MG TABS 1 pill by mouth three times daily, for diarrh ea METRONIDAZOLE 38905357106 No Longer Active Hope Benavidez MD PhD Active DYAZIDE 37.5-25 MG CAPS 1 qd TRIAMTERENE-HC TZ 04718333160 No Longer Active Hope Benavidez MD PhD Active PROZAC 20 MG CAPS 1 q d FLUOXETINE HCL 89768 139661 No Longer Active Hope Benavidez MD PhD Active SIMVASTATIN 40 MG TABS 1 qd SIMVASTATIN 004 19129202 No Longer Active Adam Yates MD Active MELOXICAM 15 MG TABS 1 qd MELOXICAM 1084120 1548 No Longer Active Adam Yates MD Active IMODIUM A-D 2 MG TABS 2 onset at diarrhea and prn. LOPERAMIDE HCL 39261770101 Active Hope Beanvidez MD PhD Active EXCEDRIN EXTRA STRENGTH 250-250-65 MG TABS 1-2 q6h PRN headache 201 04/16/21 [id number] 54764920444 Active Hope Benavidez MD PhD Active FLAGYL 500 MG TABS 1 qid METRONIDAZOLE 82393 032056 No Longer Active Adam Yates MD Active LEVAQUIN 750 MG TABS 1 qd LEVOFLOXACIN 5486 9169193 No Longer Active Adam Yates MD Active ADULT ASPIRIN LOW STRENGTH 81 MG TBDP 1 qd A SPIRIN 61788015531 Active Hope Benavidez MD PhD Active LEVAQUIN 750 MG TABS 1 qd LEVAQUIN 750 MG T ABS 604078 LEVOFLOXACIN Inactive FLAGYL 500 MG TABS 1 qid FLAGYL 500 MG TABS 376709 METRONIDAZOLE Inactive MELOXICAM 15 MG TABS 1 qd MELOXICAM 15 MG T ABS 477205 MELOXICAM Inactive SIMVASTATIN 40 MG TABS 1 qd SIMVASTATIN 40 MG TABS 198813 SIMVASTATIN Inactive PROZAC 20 MG CAPS 1 q d PROZAC 20 MG CAPS 31 0385 FLUOXETINE HCL Inactive DYAZIDE 37.5-25 MG CAPS 1 qd DYAZIDE 37.5 -25 MG CAPS 368476 TRIAMTERENE-HCTZ Inactive INNOPRAN XL 120 MG [id number] Take one by mouth daily 2 INNOPRAN XL 120 MG [id number] PROPRANOLOL HCL SR BEADS Inactive PROMETHAZINE HCL 25 MG TABS 1 Q. 4 hr. PRN PROMETHAZINE HCL 25 MG TABS 429696 PROMETHAZINE HCL Inactive POTASSIUM CHLORIDE 20 MEQ PACK by mouth twice a day prn POTASSIUM CHLORIDE 20 MEQ PACK 1012416 POTASSIUM CHLORIDE Inactive PHENADOZ 25 MG SUPP 1 every 4 hrs. PRN PHENADOZ 2 5 MG SUPP 231678 PROMETHAZINE HCL Inactive ZOFRAN 8 MG TABS 1 tab by mouth every 12 hours prn 201 05/16/09 ZOFRAN 8 MG TABS 302223 ONDANSETRON HCL Inactive OMEPRAZOLE 20 MG CPDR 1 tablet by mouth daily for GERD OMEPRAZOLE 20 MG CPDR 145063 OMEPRAZOLE Inactive CYCLOBENZAPRINE HCL 10 MG TABS 1 tablet by mouth three times daily as needed for headaches CYCLOBENZAPRINE HCL 10 MG TABS 756129 CYCLOBENZAPRINE HCL Inactive VITAMIN D3 4000 IU 1 tab 3 times daily VITAMIN D3 4000 IU Inactive PROPRANOLOL HCL 80 MG TABS 1 tab tue. and thur. 04/10 PROPRANOLOL HCL 80 MG TABS 778073 PROPRANOLOL HCL Inactive CYANOCOBALAMIN 1000 MCG/ML INJ SOLN 1 injection every 2 weeks 20 20/01/03 CYANOCOBALAMIN 1000 MCG/ML INJ SOLN 039891 CYANOCOBALAM IN Inactive MAGNESIUM GLUCONATE 250 MG TABS 1 tab tid 4 MAGNESIUM GLUCONATE 250 MG TABS 366057 MAGNESIUM GLUCONATE Inactive LOMOTIL 2.5-0.025 MG TABS 1 tab by mouth prn 4 LOMOTIL 2.5- 0.025 MG TABS 5378284 DIPHENOXYLATE-ATROPINE Inactive FLORANEX PACK 1 pack three times daily, for bowel health FLORANEX PACK LACTOBACILLUS Inactive IRON 325 (65 FE) MG TABS 1 every other day IRON 325 (65 FE) MG TABS 120738 FERROUS SULFATE Inactive FLAGYL 500 MG TABS 1 pill by mouth three times daily, for diarrh ea FLAGYL 500 MG TABS 135097 METRONIDAZOLE Inactive BACTRIM DS 800-160 MG TABS 1 pill by mouth twice daily, for UTI BACTRIM DS 800-160 MG TABS 352716 SULFAMETHOXAZOLE-TRIM ETHOPRIM Inactive Advance Directives Directive Description [...] 11 .0-15.0 platelet count 157 THOUSAND/UL 10*3/mm3 492-535 1688/04/20 mean platelet volume 8.9 fL 7.5-12.5 Lab Report: CBC W/DIFF, Comp. Metabolic Panel, Thyroid Stimulating Hormo ... - Chemistry sodium, serum 139 mmol/L 655-526 1878/10/20 carbon dioxide, venous blood 32.2 mmol/L 21.0-32 [...] - Chemi stry cholesterol, serum 200 mg/dL 288-275 1821/11/22 triglyceride, serum, fasting 129 mg/dL 30-200 HDL cholesterol, serum 56 mg/dL 32-96 LDL cholesterol, serum 118 mg/dL 0-130 calcium, serum 9.0 mg/dL 8.5-10.1 Lab Report: MicroAlb Random w/creat/6517 - Urinalysis microalbumin/total urine volume 8 mg/L Units converted. See lab report for original value. microalbumin/creatinine ratio, urine 15 MCG/MG CREAT mg/L <30 Encounters Code Encounter Date Provider Facility CPT-56992 Level 3 Est. Patient 17:54:48 CDT Kylie boyd [facility] CPT-20423 Level 3 Est. Patient 16:26:30 CDT Kina blackmon [facility] CPT-76632 Level 3 New Patient 16:22:01 [employer]ISH [employer] INTERPRETER Adam Yates MD [facility] CPT-65552 Level 4 Est. Patient 17:00:48 CDT Kylie Lund [facility] CPT-98859 Level 3 Est. Patient 13:15:54 CDT Kylie Lund [facility] CPT-47784 Level 3 Est. Patient 09:10:11 CDT Kylie Lund [facility] CPT-19257 Level 4 Est. Patient 12:08:30 SP[employer]ISH MEDICAL INTERPRETER Hope cohn MD [facility] CPT-15466 Level 4 Est. Patient 19:08:42 SPANISH MEDICAL INTERPRETER Hope cohn MD PhD [facility] CPT-45510 Level 4 Est. Patient 20:04:51 CDT Hope cohn MD [facility] CPT-94272 Level 3 New Patient 01:46:11 [employer]ISH [employer]ICAL INTERPRETER Hope landers MD PhD [facility] Procedures Code Procedure Name Date Entry Date Standard Desc ription CPT-94927 Bone Density - XRAY USE ONLY 10:27:12 CDT 2 CPT-G0439 [facility] Annual Wellness Exam 17:54:53 CDT CPT-18937 Foot, left, comp min 3V - XRAY USE ONLY 12:22:49 CDT CPT-G0009 Administration of Pneumococcal Vaccine 3 12:18:00 CDT CPT-33851 Pneumovax 23 Injection Injectable 25 MCG /0.5ML 12:18:00 CDT CPT-J0897 Prolia 60 mg 14:14:16 [employer]ISH [employer]ICAL INTERPRETER CPT-49080 Abx/Therapy Injection 14:14:15 [employer]ISH MEDICAL INTERPRETER CPT-09904 Lipid - LAB USE ONLY 10:01:52 [employer]ISH MEDICAL INTERPRETER 2 CPT-10126 Calcium - LAB USE ONLY 10:01:51 [employer]ISH MEDICAL INTERPRETER CPT-88853 Venipuncture Draw Fee 10:01:51 [employer]ISH MEDICAL INTERPRETER CPT-LR Lesion Removal 16:22:01 SP[employer]ISH MEDICAL INTERPRETER CPT-84766 TSH - LAB USE ONLY 14:26:02 CDT CPT-83671 CMP - LAB USE ONLY 14:26:01 CDT CPT-96514 CBC with Diff - LAB USE ONLY 14:26:01 CDT 2 CPT-02981 Venipuncture Draw Fee 14:26:01 CDT CPT-83844 First Vx - Ix admin for Medicare patients 13:27:08 CDT CPT-80255 Fluzone High-Dose Intramuscular Suspension 11/26 13:27:08 CDT CPT-G0438 Initial Annual Wellness Exam 14:19:57 CD T CPT-G0009 Administration of Pneumococcal Vaccine 9 11:36:25 CDT CPT-11249 Prevnar 13 Intramuscular Suspension 1 1:36:25 CDT CPT-35498 Prevnar 13 Intramuscular Suspension 1 0:40:58 CDT CPT-J0897 Prolia 60 mg 10:37:16 CDT CPT-50018 Abx/Therapy Injection 10:37:16 CDT CPT-J0897 Prolia 60 mg 16:09:34 [employer]ISH [employer]ICAL INTERPRETER CPT-J0897 Prolia 60 mg 11:10:35 [employer]ISH MEDICAL INTERPRETER CPT-72639 Abx/Therapy Injection 11:10:35 SPANISH MEDICAL INTERPRETER CPT-000 Give Appropriate Flu Vaccine 17:01:15 [employer]ANISH MEDICAL INTERPRETER 2 CPT-41678 Fluzone High Dose (65+) 15:03:08 SPANISH MEDICAL INTERPRETER 02/15 CPT-21845 Immunization Single Admin 15:03:08 SPANISH MEDICAL INTERPRETER 2014 CPT-OV Office Visit 15:58:06 CDT CPT-J0897 Prolia 60 mg 08:45:38 CDT CPT-28771 Abx/Therapy Injection 08:45:38 CDT CPT-J3420 Vitamin B12 1000mcg (Cyanocobalamin) 09:26:20 SP[employer]ISH MEDICAL INTERPRETER CPT-94337 Abx/Therapy Injection 09:26:20 SPANISH MEDICAL INTERPRETER CPT-J3420 Vitamin B12 1000mcg (Cyanocobalamin) 09:44:40 SPANISH MEDICAL INTERPRETER CPT-54895 Abx/Therapy Injection 09:44:40 SPANISH MEDICAL INTERPRETER CPT-J3420 Vitamin B12 1000mcg (Cyanocobalamin) 09:15:54 SPANISH MEDICAL INTERPRETER CPT-76276 Abx/Therapy Injection 09:15:54 SPANISH MEDICAL INTERPRETER CPT-J3420 Vitamin B12 1000mcg (Cyanocobalamin) 09:46:44 SPANISH MEDICAL INTERPRETER CPT-85256 Abx/Therapy Injection 09:46:44 SPANISH MEDICAL INTERPRETER CPT-J3420 Vitamin B12 1000mcg (Cyanocobalamin) 09:47:34 SPANISH MEDICAL INTERPRETER CPT-22962 Abx/Therapy Injection 09:47:34 SPANISH MEDICAL INTERPRETER CPT-J3420 Vitamin B12 1000mcg (Cyanocobalamin) 14:35:50 SPANISH MEDICAL INTERPRETER CPT-J3420 Vitamin B12 1000mcg (Cyanocobalamin) 09:25:05 SPANISH MEDICAL INTERPRETER CPT-11163 Abx/Therapy Injection 09:25:05 SPANISH MEDICAL INTERPRETER CPT-G0008 Administration of Influenza Virus Vaccine 13:36:47 CDT CPT-28015 Fluzone High-Dose Intramuscular Suspension 11/15 13:36:47 CDT CPT-J0897 Prolia 60 mg 08:50:41 CDT CPT-86929 Abx/Therapy Injection 08:50:41 CDT CPT-09522 Bone Density 12:06:12 CDT CPT-66669 Bone Density 08:54:40 CDT CPT-OV Office Visit 15:37:02 CDT CPT-53271 Postop F/U Visit 15:47:49 CDT CPT-60709 Postop F/U Visit 15:21:02 CDT CPT-[facility] Transitional Care Mgmt-High 07:52:27 CDT 20 20/06/01 CPT-77085 Venipuncture Draw Fee 13:51:18 CDT CPT-27649 Venipuncture Draw Fee 10:14:55 SP[employer]ISH MEDICAL INTERPRETER CPT-07597 Venipuncture Draw Fee 13:39:45 SPANISH MEDICAL INTERPRETER CPT-OV Office Visit 15:11:22 SPANISH MEDICAL INTERPRETER CPT-78291 Venipuncture Draw Fee 09:20:49 SPANISH MEDICAL INTERPRETER CPT-64883 Venipuncture Draw Fee 16:52:15 SPANISH MEDICAL INTERPRETER CPT-40686 Venipuncture Draw Fee 10:37:24 SPANISH MEDICAL INTERPRETER CPT-15003 Venipuncture Draw Fee 08:21:21 SPANISH MEDICAL INTERPRETER CPT-90736 Venipuncture Draw Fee 08:30:20 SPANISH MEDICAL INTERPRETER CPT-81111 Venipuncture Draw Fee 14:53:21 SPANISH MEDICAL INTERPRETER CPT-98470 Venipuncture Draw Fee 09:40:56 SPANISH MEDICAL INTERPRETER CPT-13861 Venipuncture Draw Fee 10:30:47 SPANISH MEDICAL INTERPRETER CPT-14181 Venipuncture Draw Fee 10:46:17 SPANISH MEDICAL INTERPRETER CPT-76321 Venipuncture Draw Fee 11:12:45 SPANISH MEDICAL INTERPRETER CPT-70345 Venipuncture Draw Fee 09:53:33 SPANISH MEDICAL INTERPRETER CPT-13772 Venipuncture Draw Fee 11:53:51 SPANISH MEDICAL INTERPRETER CPT-32609 Venipuncture Draw Fee 10:33:50 SPANISH MEDICAL INTERPRETER CPT-38384 Venipuncture Draw Fee 10:05:01 SPANISH MEDICAL INTERPRETER CPT-88322 Venipuncture Draw Fee 14:32:52 SPANISH MEDICAL INTERPRETER CPT-63649 Venipuncture Draw Fee 09:46:13 SPANISH MEDICAL INTERPRETER CPT-91567 Venipuncture Draw Fee 11:34:27 SPANISH MEDICAL INTERPRETER CPT-09690 Venipuncture Draw Fee 13:17:16 SPANISH MEDICAL INTERPRETER CPT-37541 Venipuncture Draw Fee 12:05:39 CDT CPT-62840 Venipuncture Draw Fee 12:49:12 CDT CPT-38557 Venipuncture Draw Fee 12:37:18 CDT CPT-73890 Venipuncture Draw Fee 10:57:11 CDT CPT-40008 Venipuncture Draw Fee 13:47:40 CDT CPT-41284 Venipuncture Draw Fee 10:02:17 CDT CPT-70053 TB Tubersol 17:32:32 CDT CPT-OV Office Visit 16:21:53 CDT CPT-OV Office Visit 15:49:22 CDT CPT-OV Office Visit 17:16:31 CDT CPT-OV Office Visit 10:43:31 CDT
--- OUTSIDE RECORDS SUMMARY | 2019-02-09 12:46 | XMS REPORT | Clinical Summary ---
Author Author Admin, Florecita Munoz Organization [facility] [employer] Address Unknown Phone Unavailable Allergies, Adverse Reactions, [...] Sebaceous cyst, scalp 706.2 Resolved Kylie Holt MACHINE STRIPPER CUTTER Sebaceous cyst Cervical lymphadenopathy, anterior, left 785.6 Resolv ed Kylie Holt MACHINE [employer]IPPER C[employer]TER Enlargement of lymph nodes Need for prophylactic vaccination and inoculation against in fluenza V04.81 Resolved Adam Yates MD Need for prophylactic vaccination and inoculation against influenza Preventive health care V70.0 Active Kylie Holt MACHINE [employer]IPPER C[employer]TER Routine general medical examination at a health care facility Thyroid nodule, left 241.0 Active Kylie Holt A PRN Nontoxic uninodular goiter Screening mammogram V76.12 Active Kylie Holt AP RN Other screening mammogram Mandy 706.2 Active Adam Yates MD Sebaceous cyst ABDOMINAL PAIN, RIGHT LOWER QUADRANT ICD-789.03 Inactive Kina Joshua MACHINE STRIPPER CUTTER ADENOCARCINOMA, COLON, 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 Dick Yates MD ABDOMINAL PAIN, GENERALIZED ICD-789.07 Inactive Hope Benavidez MD PhD FEVER UNSPECIFIED ICD-780.60 Inactive Hope cohn MD PhD UNSPECIFIED VENOUS INSUFFICIENCY ICD-459.81 Elda ctive Adam Yates MD ADENOCARCINOMA, 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 Inac tive Hope Benavidez MD PhD Hyperkalemia ICD-276.7 Inactive Hope Benavidez MD PhD GERD ICD-530.81 Inactive Kylie Holt MACHINE STRIPPER CUTTER 2015 Health maintenance exam ICD-V70.0 Bam Yates MD Anemia ICD-285.9 Inactive Kylie Holt MACHINE STRIPPER C[employer]TER 07/24 Weakness ICD-780.79 Inactive Hope Benavidez MD [...] Sebaceous cyst, scalp ICD-706.2 Inactive Tracy Holt MACHINE STRIPPER C[employer]TER Cervical lymphadenopathy, anterior, left ICD-785.6 Inactive Kylie Holt MACHINE STRIPPER CUTTER Need for prophylactic vaccination and inoculation against in fluenza ICD-V04.81 Bam Yates MD Medication List Medication Instructions Start Date Stop Date Generic Name NDC Status Provider Patient Instruction VITAMIN D3 2000 UNIT ORAL CAPS Melaleuca-One daily CHOLECALCIFEROL [id number] Active Kylie Yokum MACHINE STRIPPER CUTTER Active PROBIOTIC DAILY ORAL CAPS Take one daily PROBIOTIC PRODUCT 93742839493 Active Kylie Holt APRN Active IRON 325 (65 FE) MG TABS 1 every other day FERR OUS SULFATE 20071713239 No Longer Active Kylie Holt APRN Active FLORANEX PACK 1 pack three times daily, for bowel health LACTOBACILLUS 54700651685 No Longer Active Kylie Holt APRN Active LOMOTIL 2.5-0.025 MG TABS 1 tab by mouth prn 4 DIPHENOXYLATE-ATROPINE 77617822339 No Longer Active Kylie Holt APRN Active MAGNESIUM GLUCONATE 250 MG TABS 1 tab tid 4 MAGNESIUM GLUCONATE 43871046229 No Longer Active Kylie Holt APRN Active CYANOCOBALAMIN 1000 MCG/ML INJ SOLN 1 injection every 2 weeks 20 20/01/03 CYANOCOBALAMIN 80420346113 No Longer Active Kylie Holt APRN Active ATENOLOL 25 MG ORAL TABS 1/2 pill by mouth daily, for headac hes, blood pressure ATENOLOL 39894682698 Active Kylie Holt APRN Active PROPRANOLOL HCL 80 MG TABS 1 tab tue. and thur. 04/10 PROPRANOLOL HCL 47596099876 No Longer Active Hope Benavidez MD PhD A ctive VITAMIN D3 4000 IU 1 tab 3 times daily VITAMIN D3 4000 IU No Longer Active Hope Benavidez MD PhD Active BACTRIM DS 800-160 MG TABS 1 pill by mouth twice daily, for UTI SULFAMETHOXAZOLE-TRIMETHOPRIM 31959168288 No Longer Active Lisa Benavidez MD PhD Active PROLIA 60 MG/ML SOLN 1 shot every 6 months for osteoprosis DENOSUMAB 59959881436 Active Hope Benavidez MD PhD Active CALCIUM + D + K 750-500-40 MG-UNT-MCG TABS 1 tab by mouth tw ice daily CALCIUM-VITAMIN D-VITAMIN K 56608320378 Active Hope landers MD PhD Active DAILY VALUE MULTIVITAMIN TABS 1 tab by mouth twice daily MULTIPLE VITAMIN 67690079564 Active Hope Benavidez MD PhD Active FISH OIL 306 MG CAPS 1 tab by mouth three times daily OMEGA-3 FATTY ACIDS 53382344457 Active Hope Benavidez MD PhD Active LUTEIN 10 MG TABS 1 tab daily LUTEIN 87284227223 Act cash Hope Benavidez MD PhD Active TRIAMTERENE-HCTZ 37.5-25 MG TABS 1 tab by mouth daily TRIAMTERENE-HCTZ 45205956975 Active Kylie Holt MACHINE STRIPPER CUTTER Active CYCLOBENZAPRINE HCL 10 MG TABS 1 tablet by mouth three times daily as needed for headaches CYCLOBENZAPRINE HCL 64327470989 No Longe r Active Adam Yates MD Active OMEPRAZOLE 20 MG CPDR 1 tablet by mouth daily for GERD OMEPRAZOLE 40722659149 No Longer Active Adam Yates MD A ctive ZOFRAN 8 MG TABS 1 tab by mouth every 12 hours prn 201 05/16/09 ONDANSETRON HCL 86008149028 No Longer Active Adam Yates MD Active PHENADOZ 25 MG SUPP 1 every 4 hrs. PRN PROMETHA ZINE HCL 18333577757 No Longer Active Adam Yates MD Active POTASSIUM CHLORIDE 20 MEQ PACK by mouth twice a day prn POTASSIUM CHLORIDE 03650006263 No Longer Active Adam Yates MD Active PROMETHAZINE HCL 25 MG TABS 1 Q. 4 hr. PRN PROM ETHAZINE HCL 81679638457 No Longer Active Adam Yates MD Active INNOPRAN XL 120 MG [id number] Take one by mouth daily 2 PROPRANOLOL HCL SR BEADS 04068097860 No Longer Active Adam Yates MD A ctive FLAGYL 500 MG TABS 1 pill by mouth three times daily, for diarrh ea METRONIDAZOLE 39337244787 No Longer Active Hope Benavidez MD PhD Active DYAZIDE 37.5-25 MG CAPS 1 qd TRIAMTERENE-HC TZ 67677655575 No Longer Active Hope Benavidez MD PhD Active PROZAC 20 MG CAPS 1 q d FLUOXETINE HCL 12492 525708 No Longer Active Hope Benavidez MD PhD Active SIMVASTATIN 40 MG TABS 1 qd SIMVASTATIN 004 88484337 No Longer Active Adam Yates MD Active MELOXICAM 15 MG TABS 1 qd MELOXICAM 1916759 4467 No Longer Active Adam Yates MD Active IMODIUM A-D 2 MG TABS 2 onset at diarrhea and prn. LOPERAMIDE HCL 94947716857 Active Hope Benavidez MD PhD Active EXCEDRIN EXTRA STRENGTH 250-250-65 MG TABS 1-2 q6h PRN headache 201 04/16/21 [id number] 40605871850 Active Hope Benavidez MD PhD Active FLAGYL 500 MG TABS 1 qid METRONIDAZOLE 88239 788869 No Longer Active Adam Yates MD Active LEVAQUIN 750 MG TABS 1 qd LEVOFLOXACIN 5486 9556681 No Longer Active Adam Yates MD Active ADULT ASPIRIN LOW STRENGTH 81 MG TBDP 1 qd A SPIRIN 26290243930 Active Hope Benavidez MD PhD Active LEVAQUIN 750 MG TABS 1 qd LEVAQUIN 750 MG T ABS 306373 LEVOFLOXACIN Inactive FLAGYL 500 MG TABS 1 qid FLAGYL 500 MG TABS 440684 METRONIDAZOLE Inactive MELOXICAM 15 MG TABS 1 qd MELOXICAM 15 MG T ABS 876680 MELOXICAM Inactive SIMVASTATIN 40 MG TABS 1 qd SIMVASTATIN 40 MG TABS 968919 SIMVASTATIN Inactive PROZAC 20 MG CAPS 1 q d PROZAC 20 MG CAPS 31 0385 FLUOXETINE HCL Inactive DYAZIDE 37.5-25 MG CAPS 1 qd DYAZIDE 37.5 -25 MG CAPS 822988 TRIAMTERENE-HCTZ Inactive INNOPRAN XL 120 MG [id number] Take one by mouth daily 2 INNOPRAN XL 120 MG [id number] PROPRANOLOL HCL SR BEADS Inactive PROMETHAZINE HCL 25 MG TABS 1 Q. 4 hr. PRN PROMETHAZINE HCL 25 MG TABS 343151 PROMETHAZINE HCL Inactive POTASSIUM CHLORIDE 20 MEQ PACK by mouth twice a day prn POTASSIUM CHLORIDE 20 MEQ PACK 868994 POTASSIUM CHLORIDE Inactive PHENADOZ 25 MG SUPP 1 every 4 hrs. PRN PHENADOZ 2 5 MG SUPP 497391 PROMETHAZINE HCL Inactive ZOFRAN 8 MG TABS 1 tab by mouth every 12 hours prn 201 05/16/09 ZOFRAN 8 MG TABS 838425 ONDANSETRON HCL Inactive OMEPRAZOLE 20 MG CPDR 1 tablet by mouth daily for GERD OMEPRAZOLE 20 MG CPDR 819220 OMEPRAZOLE Inactive CYCLOBENZAPRINE HCL 10 MG TABS 1 tablet by mouth three times daily as needed for headaches CYCLOBENZAPRINE HCL 10 MG TABS 191056 CYCLOBENZAPRINE HCL Inactive VITAMIN D3 4000 IU 1 tab 3 times daily VITAMIN D3 4000 IU Inactive PROPRANOLOL HCL 80 MG TABS 1 tab tue. and thur. 04/10 PROPRANOLOL HCL 80 MG TABS 524126 PROPRANOLOL HCL Inactive CYANOCOBALAMIN 1000 MCG/ML INJ SOLN 1 injection every 2 weeks 20 20/01/03 CYANOCOBALAMIN 1000 MCG/ML INJ SOLN 844075 CYANOCOBALAM IN Inactive MAGNESIUM GLUCONATE 250 MG TABS 1 tab tid 4 MAGNESIUM GLUCONATE 250 MG TABS 228829 MAGNESIUM GLUCONATE Inactive LOMOTIL 2.5-0.025 MG TABS 1 tab by mouth prn 4 LOMOTIL 2.5- 0.025 MG TABS 6733483 DIPHENOXYLATE-ATROPINE Inactive FLORANEX PACK 1 pack three times daily, for bowel health FLORANEX PACK LACTOBACILLUS Inactive IRON 325 (65 FE) MG TABS 1 every other day IRON 325 (65 FE) MG TABS 418391 FERROUS SULFATE Inactive FLAGYL 500 MG TABS 1 pill by mouth three times daily, for diarrh ea FLAGYL 500 MG TABS 359237 METRONIDAZOLE Inactive BACTRIM DS 800-160 MG TABS 1 pill by mouth twice daily, for UTI BACTRIM DS 800-160 MG TABS 356323 SULFAMETHOXAZOLE-TRIM ETHOPRIM Inactive Advance Directives Directive Description [...] Panel - Chemistry sodium, serum 142 mmol/L 137-922 3968/04/20 carbon dioxide, venous blood 34.7 mmol/L 21.0-32 [...] ... - Chemistry sodium, serum 139 mmol/L 347-110 8904/10/20 carbon dioxide, venous blood 32.2 mmol/L 21.0-32 [...] - Chemi stry cholesterol, serum 200 mg/dL 101-087 6014/11/22 triglyceride, serum, fasting 129 mg/dL 30-200 HDL cholesterol, serum 56 mg/dL 32-96 LDL cholesterol, serum 118 mg/dL 0-130 calcium, serum 9.0 mg/dL 8.5-10.1 Lab Report: MicroAlb Random w/creat/6517 - Urinalysis microalbumin/total urine volume 8 mg/L Units converted. See lab report for original value. microalbumin/creatinine ratio, urine 15 MCG/MG CREAT mg/L <30 Encounters Code Encounter Date Provider Facility CPT-77642 Level 3 New Patient 16:22:01 BRONC BUSTER Adam Yates MD [facility] CPT-13908 Level 4 Est. Patient 17:00:48 CDT [facility] CPT-62547 Level 3 Est. Patient 13:15:[address] [facility] CPT-06841 Level 3 Est. Patient 09:10:11 CDT [facility]PT-78904 Level 4 Est. Patient 12:08:30 BRONC BUSTER Hope cohn MD [facility] CPT-54074 Level 4 Est. Patient 19:08:42 BRONC BUSTER Hope cohn MD PhD [facility] CPT-55464 Level 4 Est. Patient 20:04:51 CDT Hope cohn MD [facility] CPT-88798 Level 3 New Patient 01:46:11 BRONC BUSTER Hope landers MD PhD [facility] Procedures Code Procedure Name Date Entry Date Standard Desc ription CPT-57529 Lipid - LAB USE ONLY 10:01:52 BRONC BUSTER 2 CPT-24586 Calcium - LAB USE ONLY 10:01:51 BRONC BUSTER CPT-76459 Venipuncture Draw Fee 10:01:51 BRONC BUSTER CPT-LR Lesion Removal 16:22:01 BRONC BUSTER CPT-68811 TSH - LAB USE ONLY 14:26:02 CDT CPT-02843 CMP - LAB USE ONLY 14:26:01 CDT CPT-27350 CBC with Diff - LAB USE ONLY 14:26:01 CDT 2 CPT-16084 Venipuncture Draw Fee 14:26:01 CDT CPT-74814 First Vx - Ix admin for Medicare patients 13:27:08 CDT CPT-86513 Fluzone High-Dose Intramuscular Suspension 11/26 13:27:08 CDT CPT-G0438 Initial Annual Wellness Exam 14:19:57 CD T CPT-G0009 Administration of Pneumococcal Vaccine 9 11:36:25 CDT CPT-22869 Prevnar 13 Intramuscular Suspension 1 1:36:25 CDT CPT-33432 Prevnar 13 Intramuscular Suspension 1 0:40:58 CDT CPT-J0897 Prolia 60 mg 10:37:16 CDT CPT-89238 Abx/Therapy Injection 10:37:16 CDT CPT-J0897 Prolia 60 mg 16:09:34 BRONC BUSTER CPT-J0897 Prolia 60 mg 11:10:35 BRONC BUSTER CPT-20947 Abx/Therapy Injection 11:10:35 BRONC BUSTER CPT-000 Give Appropriate Flu Vaccine 17:01:15 BRONC BUSTER 2 CPT-16779 Fluzone High Dose (65+) 15:03:08 BRONC BUSTER 02/15 CPT-92197 Immunization Single Admin 15:03:08 BRONC BUSTER 2014 CPT-OV Office Visit 15:58:06 CDT CPT-J0897 Prolia 60 mg 08:45:38 CDT CPT-08622 Abx/Therapy Injection 08:45:38 CDT CPT-J3420 Vitamin B12 1000mcg (Cyanocobalamin) 09:26:20 BRONC BUSTER CPT-09765 Abx/Therapy Injection 09:26:20 BRONC BUSTER CPT-J3420 Vitamin B12 1000mcg (Cyanocobalamin) 09:44:40 BRONC BUSTER CPT-26068 Abx/Therapy Injection 09:44:40 BRONC BUSTER CPT-J3420 Vitamin B12 1000mcg (Cyanocobalamin) 09:15:54 BRONC BUSTER CPT-81174 Abx/Therapy Injection 09:15:54 BRONC BUSTER CPT-J3420 Vitamin B12 1000mcg (Cyanocobalamin) 09:46:44 BRONC BUSTER CPT-89066 Abx/Therapy Injection 09:46:44 BRONC BUSTER CPT-J3420 Vitamin B12 1000mcg (Cyanocobalamin) 09:47:34 BRONC BUSTER CPT-95317 Abx/Therapy Injection 09:47:34 BRONC BUSTER CPT-J3420 Vitamin B12 1000mcg (Cyanocobalamin) 14:35:50 BRONC BUSTER CPT-J3420 Vitamin B12 1000mcg (Cyanocobalamin) 09:25:05 BRONC BUSTER CPT-49132 Abx/Therapy Injection 09:25:05 BRONC BUSTER CPT-G0008 Administration of Influenza Virus Vaccine 13:36:47 CDT CPT-44320 Fluzone High-Dose Intramuscular Suspension 11/15 13:36:47 CDT CPT-J0897 Prolia 60 mg 08:50:41 CDT CPT-54419 Abx/Therapy Injection 08:50:41 CDT CPT-49088 Bone Density 12:06:12 CDT CPT-72672 Bone Density 08:54:40 CDT CPT-OV Office Visit 15:37:02 CDT CPT-01304 Postop F/U Visit 15:47:49 CDT CPT-19751 Postop F/U Visit 15:21:02 CDT CPT-TCMH Transitional Care Mgmt-High 07:52:27 CDT 20 20/06/01 CPT-33587 Venipuncture Draw Fee 13:51:18 CDT CPT-68290 Venipuncture Draw Fee 10:14:55 BRONC BUSTER CPT-29992 Venipuncture Draw Fee 13:39:45 BRONC BUSTER CPT-OV Office Visit 15:11:22 BRONC BUSTER CPT-24353 Venipuncture Draw Fee 09:20:49 BRONC BUSTER CPT-27945 Venipuncture Draw Fee 16:52:15 BRONC BUSTER CPT-27990 Venipuncture Draw Fee 10:37:24 BRONC BUSTER CPT-79294 Venipuncture Draw Fee 08:21:21 BRONC BUSTER CPT-30530 Venipuncture Draw Fee 08:30:20 BRONC BUSTER CPT-23892 Venipuncture Draw Fee 14:53:21 BRONC BUSTER CPT-35365 Venipuncture Draw Fee 09:40:56 BRONC BUSTER CPT-61679 Venipuncture Draw Fee 10:30:47 BRONC BUSTER CPT-91464 Venipuncture Draw Fee 10:46:17 BRONC BUSTER CPT-09900 Venipuncture Draw Fee 11:12:45 BRONC BUSTER CPT-36670 Venipuncture Draw Fee 09:53:33 BRONC BUSTER CPT-85167 Venipuncture Draw Fee 11:53:51 BRONC BUSTER CPT-50142 Venipuncture Draw Fee 10:33:50 BRONC BUSTER CPT-05752 Venipuncture Draw Fee 10:05:01 BRONC BUSTER CPT-80121 Venipuncture Draw Fee 14:32:52 BRONC BUSTER CPT-06713 Venipuncture Draw Fee 09:46:13 BRONC BUSTER CPT-59943 Venipuncture Draw Fee 11:34:27 BRONC BUSTER CPT-47568 Venipuncture Draw Fee 13:17:16 BRONC BUSTER CPT-95637 Venipuncture Draw Fee 12:05:39 CDT CPT-14973 Venipuncture Draw Fee 12:49:12 CDT CPT-87056 Venipuncture Draw Fee 12:37:18 CDT CPT-88486 Venipuncture Draw Fee 10:57:11 CDT CPT-28108 Venipuncture Draw Fee 13:47:40 CDT CPT-62944 Venipuncture Draw Fee 10:02:17 CDT CPT-96020 TB Tubersol 17:32:32 CDT CPT-OV Office Visit 16:21:53 CDT CPT-OV Office Visit 15:49:22 CDT CPT-OV Office Visit 17:16:31 CDT CPT-OV Office Visit 10:43:31 CDT
--- OUTSIDE RECORDS SUMMARY | 2019-02-09 12:46 | XMS REPORT | Clinical Summary ---
Author Author Renaldo, Florecita Munoz Organization [facility] [place] Address Unknown Phone Unavailable Allergies, Adverse Reactions, [...] PhD Hyperpotassemia GERD 530.81 Resolved Kylie Yokum MAIL ORDER BILLER Esophageal reflux Health maintenance exam V70.0 Resolved Adolfo Yates MD Routine general medical examination at a health care facility Anemia 285.9 Resolved Kylie Holt MAIL ORDER BILLER Anemia, unspecified Personal history of malignant neoplasm [...] Sebaceous cyst, scalp 706.2 Resolved Kylie Holt MAIL ORDER BILLER Sebaceous cyst Cervical lymphadenopathy, anterior, left 785.6 Resolv ed Kylie Holt MAIL ORDER BILLER Enlargement of lymph nodes Need for prophylactic vaccination and inoculation against in fluenza V04.81 Resolved Adam Yates MD Need for prophylactic vaccination and inoculation against influenza Preventive health care V70.0 Active Kylie Holt MAIL ORDER BILLER Routine general medical examination at a health [...] cohn MD PhD UNSPECIFIED VENOUS INSUFFICIENCY ICD-459.81 [place] ctive Adam Yates MD ADENOCARCINOMA, 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 Inac tive Hope Benavidez MD PhD Hyperkalemia ICD-276.7 Inactive Hope Benavidez MD PhD GERD ICD-530.81 Inactive Kylie Holt APRN 2015 Health maintenance exam ICD-V70.0 Inactive Adolfo Yates MD Anemia ICD-285.9 Inactive Kylie Holt MAIL ORDER BILLER 07/24 ABDOMINAL PAIN, RIGHT LOWER QUADRANT ICD-789.03 Inactive Kina Joshua MAIL ORDER BILLER Aftercare following surgery of the teeth,oral cavity [...] Sebaceous cyst, scalp ICD-706.2 Inactive Tracy Holt MAIL ORDER BILLER Cervical lymphadenopathy, anterior, left ICD-785.6 Inactive Kylie Lundoliver MAIL ORDER BILLER Need for prophylactic vaccination and inoculation against in fluenza ICD-V04.81 Inactive Adam Yates MD Colon cancer ICD-153.9 Inactive Adam luna MD Medication List Medication Instructions Start Date Stop Date Generic Name NDC Status Provider Patient Instruction VITAMIN D3 2000 UNIT ORAL CAPS Melaleuca-One daily CHOLECALCIFEROL 54731142248 Active Kylie Lundoliver MAIL ORDER BILLER Active PROBIOTIC DAILY ORAL CAPS Take one daily PROBIOTIC PRODUCT 12339905292 Active Kylie Holt MAIL ORDER BILLER Active IRON 325 (65 FE) MG TABS 1 every other day FERR OUS SULFATE 18858455633 No Longer Active Kylie Holt MAIL ORDER BILLER Active FLORANEX PACK 1 pack three times daily, for bowel health LACTOBACILLUS 30817630341 No Longer Active Kylie Holt MAIL ORDER BILLER Active LOMOTIL 2.5-0.025 MG TABS 1 tab by mouth prn 4 DIPHENOXYLATE-ATROPINE 42939603157 No Longer Active Kylie Lundum MAIL ORDER BILLER Active MAGNESIUM GLUCONATE 250 MG TABS 1 tab tid 4 MAGNESIUM GLUCONATE 18206295839 No Longer Active Kylie Holt MAIL ORDER BILLER Active CYANOCOBALAMIN 1000 MCG/ML INJ SOLN 1 injection every 2 weeks 20 20/01/03 CYANOCOBALAMIN 60251338503 No Longer Active Kylie Holt MAIL ORDER BILLER Active ATENOLOL 25 MG ORAL TABS 1/2 pill by mouth daily, for headac hes, blood pressure ATENOLOL 04980941996 Active Kylie Lundum MAIL ORDER BILLER Active PROPRANOLOL HCL 80 MG TABS 1 tab tue. and thur. 04/10 PROPRANOLOL HCL 74987507273 No Longer Active Hope Benavidez MD PhD A ctive VITAMIN D3 4000 IU 1 tab 3 times daily VITAMIN D3 4000 IU No Longer Active Hope Benavidez MD PhD Active BACTRIM DS 800-160 MG TABS 1 pill by mouth twice daily, for UTI SULFAMETHOXAZOLE-TRIMETHOPRIM 94301568511 No Longer Active A attila Benavidez MD PhD Active PROLIA 60 MG/ML SOLN 1 shot every 6 months for osteoprosis DENOSUMAB 16422442262 Active Hope Benavidez MD PhD Active CALCIUM + D + K 750-500-40 MG-UNT-MCG TABS 1 tab by mouth tw ice daily CALCIUM-VITAMIN D-VITAMIN K 66357555097 Active Hope landers MD PhD Active DAILY VALUE MULTIVITAMIN TABS 1 tab by mouth twice daily MULTIPLE VITAMIN 57963192643 Active Hope Benavidez MD PhD Active FISH OIL 306 MG CAPS 1 tab by mouth three times daily OMEGA-3 FATTY ACIDS 40055812573 Active Hope Benavidez MD PhD Active LUTEIN 10 MG TABS 1 tab daily LUTEIN 77003159421 Act cash Hope Benavidez MD PhD Active TRIAMTERENE-HCTZ 37.5-25 MG TABS 1 tab by mouth daily TRIAMTERENE-HCTZ 71968097387 Active Kylieshubham Holt MAIL ORDER BILLER Active CYCLOBENZAPRINE HCL 10 MG TABS 1 tablet by mouth three times daily as needed for headaches CYCLOBENZAPRINE HCL 49871687418 No Longe r Active Adam Yates MD Active OMEPRAZOLE 20 MG CPDR 1 tablet by mouth daily for GERD OMEPRAZOLE 81879386117 No Longer Active dAam Yates MD A ctive ZOFRAN 8 MG TABS 1 tab by mouth every 12 hours prn 201 05/16/09 ONDANSETRON HCL 18314418918 No Longer Active Adam Yates MD Active PHENADOZ 25 MG SUPP 1 every 4 hrs. PRN PROMETHA ZINE HCL 45541019233 No Longer Active Adam Yates MD Active POTASSIUM CHLORIDE 20 MEQ PACK by mouth twice a day prn POTASSIUM CHLORIDE 18345316501 No Longer Active Adam Yates MD Active PROMETHAZINE HCL 25 MG TABS 1 Q. 4 hr. PRN PROM ETHAZINE HCL 19221193906 No Longer Active Adam Yates MD Active INNOPRAN XL 120 MG [id number] Take one by mouth daily 2 PROPRANOLOL HCL SR BEADS 55173014046 No Longer Active Adam Yates MD A ctive FLAGYL 500 MG TABS 1 pill by mouth three times daily, for diarrh ea METRONIDAZOLE 09730665299 No Longer Active Hope Benavidez MD PhD Active DYAZIDE 37.5-25 MG CAPS 1 qd TRIAMTERENE-HC TZ 50449495887 No Longer Active Hope Benavidez MD PhD Active PROZAC 20 MG CAPS 1 q d FLUOXETINE HCL 00922 260336 No Longer Active Hope Benavidez MD PhD Active SIMVASTATIN 40 MG TABS 1 qd SIMVASTATIN 004 01904435 No Longer Active Adam Yates MD Active MELOXICAM 15 MG TABS 1 qd MELOXICAM 5804859 0644 No Longer Active Adam Yates MD Active IMODIUM A-D 2 MG TABS 2 onset at diarrhea and prn. LOPERAMIDE HCL 26974989277 Active Hope Benavidez MD PhD Active EXCEDRIN EXTRA STRENGTH 250-250-65 MG TABS 1-2 q6h PRN headache 201 04/16/21 [id number] 35026153501 Active Hope Benavidez MD PhD Active FLAGYL 500 MG TABS 1 qid METRONIDAZOLE 55418 714743 No Longer Active Adam Yates MD Active LEVAQUIN 750 MG TABS 1 qd LEVOFLOXACIN 5486 0366473 No Longer Active Adam Yates MD Active ADULT ASPIRIN LOW STRENGTH 81 MG TBDP 1 qd A SPIRIN 13261245480 Active Hope Benavidez MD PhD Active LEVAQUIN 750 MG TABS 1 qd LEVAQUIN 750 MG T ABS 701081 LEVOFLOXACIN Inactive FLAGYL 500 MG TABS 1 qid FLAGYL 500 MG TABS 033291 METRONIDAZOLE Inactive MELOXICAM 15 MG TABS 1 qd MELOXICAM 15 MG T ABS 090999 MELOXICAM Inactive SIMVASTATIN 40 MG TABS 1 qd SIMVASTATIN 40 MG TABS 220017 SIMVASTATIN Inactive PROZAC 20 MG CAPS 1 q d PROZAC 20 MG CAPS 31 0385 FLUOXETINE HCL Inactive DYAZIDE 37.5-25 MG CAPS 1 qd DYAZIDE 37.5 -25 MG CAPS 627884 TRIAMTERENE-HCTZ Inactive INNOPRAN XL 120 MG [id number] Take one by mouth daily 2 INNOPRAN XL 120 MG [id number] PROPRANOLOL HCL SR BEADS Inactive PROMETHAZINE HCL 25 MG TABS 1 Q. 4 hr. PRN PROMETHAZINE HCL 25 MG TABS 588226 PROMETHAZINE HCL Inactive POTASSIUM CHLORIDE 20 MEQ PACK by mouth twice a day prn POTASSIUM CHLORIDE 20 MEQ PACK 804245 POTASSIUM CHLORIDE Inactive PHENADOZ 25 MG SUPP 1 every 4 hrs. PRN PHENADOZ 2 5 MG SUPP 869296 PROMETHAZINE HCL Inactive ZOFRAN 8 MG TABS 1 tab by mouth every 12 hours prn 201 05/16/09 ZOFRAN 8 MG TABS 797287 ONDANSETRON HCL Inactive OMEPRAZOLE 20 MG CPDR 1 tablet by mouth daily for GERD OMEPRAZOLE 20 MG CPDR 740170 OMEPRAZOLE Inactive CYCLOBENZAPRINE HCL 10 MG TABS 1 tablet by mouth three times daily as needed for headaches CYCLOBENZAPRINE HCL 10 MG TABS 519452 CYCLOBENZAPRINE HCL Inactive VITAMIN D3 4000 IU 1 tab 3 times daily VITAMIN D3 4000 IU Inactive PROPRANOLOL HCL 80 MG TABS 1 tab tue. and thur. 04/10 PROPRANOLOL HCL 80 MG TABS 283213 PROPRANOLOL HCL Inactive CYANOCOBALAMIN 1000 MCG/ML INJ SOLN 1 injection every 2 weeks 20 20/01/03 CYANOCOBALAMIN 1000 MCG/ML INJ SOLN 988678 CYANOCOBALAM IN Inactive MAGNESIUM GLUCONATE 250 MG TABS 1 tab tid 4 MAGNESIUM GLUCONATE 250 MG TABS 039979 MAGNESIUM GLUCONATE Inactive LOMOTIL 2.5-0.025 MG TABS 1 tab by mouth prn 4 LOMOTIL 2.5- 0.025 MG TABS 9776461 DIPHENOXYLATE-ATROPINE Inactive FLORANEX PACK 1 pack three times daily, for bowel health FLORANEX PACK LACTOBACILLUS Inactive IRON 325 (65 FE) MG TABS 1 every other day IRON 325 (65 FE) MG TABS 773876 FERROUS SULFATE Inactive FLAGYL 500 MG TABS 1 pill by mouth three times daily, for diarrh ea FLAGYL 500 MG TABS 065749 METRONIDAZOLE Inactive BACTRIM DS 800-160 MG TABS 1 pill by mouth twice daily, for UTI BACTRIM DS 800-160 MG TABS 652879 SULFAMETHOXAZOLE-TRIM ETHOPRIM Inactive Advance Directives Directive Description [...] Panel - Chemistry sodium, serum 142 mmol/L 018-138 0768/04/20 carbon dioxide, venous blood 34.7 mmol/L 21.0-32 [...] percent of blood leukocytes 35.6 % 20.5-51.1 mean corpuscular hemoglobin concentration, RBC 33.5 G/DL % 31.8-35.4 mean corpuscular hemoglobin, RBC 32.3 pg 27. 0-31.2 mean corpuscular volume, RBC 97 fL 80-97 hematocrit, blood 43.2 % 36.0-46.0 hemoglobin, blood 14.5 g/dL 12.0-16.0 monocytes as percent of blood leukocytes 5.9 % 1.7-9.3 red blood cell distribution width 14.2 % 11 .6-14.8 platelet count 204 10^3/MM^3 10*3/mm3 672-448 9399/04/20 neutrophils as percent of blood leukocytes 54.2 % 42.2-75.2 leukocyte count, blood 5.9 10^3/MM^3 10*3/mm3 4.6-10.2 Lab Report: CBC W/DIFF, Comp. Metabolic Panel, Thyroid Stimulating Hormo ... - Chemistry sodium, serum 139 mmol/L 527-713 4275/10/20 carbon dioxide, venous blood 32.2 mmol/L 21.0-32 [...] value. Encounters Code Encounter Date Provider Facility CPT-90134 Level 3 New Patient 16:22:01 SAFETY RELIEF VALVE TECHNICIAN Adam Yates MD [facility] CPT-23981 Level 4 Est. Patient 17:00:48 CDT [facility]ev[facility] CPT-60214 Level 3 Est. Patient 13:15:54 CDT [facility] CPT-10381 Level 3 Est. Patient 09:10:11 CDT [facility] CPT-96690 Level 4 Est. Patient 12:08:30 SAFETY RELIEF VALVE TECHNICIAN Hope cohn MD PhD [facility] CPT-15947 Level 4 Est. Patient 19:08:42 SAFETY RELIEF VALVE TECHNICIAN Hope cohn MD [facility] CPT-15887 Level 4 Est. Patient 20:04:51 CDT Hope cohn MD [facility] CPT-87223 Level 3 New Patient 01:46:11 SAFETY RELIEF VALVE TECHNICIAN Hope landers MD PhD [facility] Procedures Code Procedure Name Date Entry Date Standard Desc ription CPT-18471 Lipid - LAB USE ONLY 10:01:52 SAFETY RELIEF VALVE TECHNICIAN 2 CPT-90584 Calcium - LAB USE ONLY 10:01:51 SAFETY RELIEF VALVE TECHNICIAN CPT-27274 Venipuncture Draw Fee 10:01:51 SAFETY RELIEF VALVE TECHNICIAN CPT-LR Lesion Removal 16:22:01 SAFETY RELIEF VALVE TECHNICIAN CPT-81199 TSH - LAB USE ONLY 14:26:02 CDT CPT-43710 CMP - LAB USE ONLY 14:26:01 CDT CPT-39170 CBC with Diff - LAB USE ONLY 14:26:01 CDT 2 CPT-70010 Venipuncture Draw Fee 14:26:01 CDT CPT-15445 First Vx - Ix admin for Medicare patients 13:27:08 CDT CPT-37581 Fluzone High-Dose Intramuscular Suspension 11/26 13:27:08 CDT CPT-G0438 Initial Annual Wellness Exam 14:19:57 CD T CPT-G0009 Administration of Pneumococcal Vaccine 9 11:36:25 CDT CPT-51042 Prevnar 13 Intramuscular Suspension 1 1:36:25 CDT CPT-99096 Prevnar 13 Intramuscular Suspension 1 0:40:58 CDT CPT-J0897 Prolia 60 mg 10:37:16 CDT CPT-31556 Abx/Therapy Injection 10:37:16 CDT CPT-J0897 Prolia 60 mg 16:09:34 SAFETY RELIEF VALVE TECHNICIAN CPT-J0897 Prolia 60 mg 11:10:35 SAFETY RELIEF VALVE TECHNICIAN CPT-26889 Abx/Therapy Injection 11:10:35 SAFETY RELIEF VALVE TECHNICIAN CPT-000 Give Appropriate Flu Vaccine 17:01:15 SAFETY RELIEF VALVE TECHNICIAN 2 CPT-12778 Fluzone High Dose (65+) 15:03:08 SAFETY RELIEF VALVE TECHNICIAN 02/15 CPT-99441 Immunization Single Admin 15:03:08 SAFETY RELIEF VALVE TECHNICIAN 2014 CPT-OV Office Visit 15:58:06 CDT CPT-J0897 Prolia 60 mg 08:45:38 CDT CPT-11526 Abx/Therapy Injection 08:45:38 CDT CPT-J3420 Vitamin B12 1000mcg (Cyanocobalamin) 09:26:20 SAFETY RELIEF VALVE TECHNICIAN CPT-65539 Abx/Therapy Injection 09:26:20 SAFETY RELIEF VALVE TECHNICIAN CPT-J3420 Vitamin B12 1000mcg (Cyanocobalamin) 09:44:40 SAFETY RELIEF VALVE TECHNICIAN CPT-40447 Abx/Therapy Injection 09:44:40 SAFETY RELIEF VALVE TECHNICIAN CPT-J3420 Vitamin B12 1000mcg (Cyanocobalamin) 09:15:54 SAFETY RELIEF VALVE TECHNICIAN CPT-26715 Abx/Therapy Injection 09:15:54 SAFETY RELIEF VALVE TECHNICIAN CPT-J3420 Vitamin B12 1000mcg (Cyanocobalamin) 09:46:44 SAFETY RELIEF VALVE TECHNICIAN CPT-13641 Abx/Therapy Injection 09:46:44 SAFETY RELIEF VALVE TECHNICIAN CPT-J3420 Vitamin B12 1000mcg (Cyanocobalamin) 09:47:34 SAFETY RELIEF VALVE TECHNICIAN CPT-22712 Abx/Therapy Injection 09:47:34 SAFETY RELIEF VALVE TECHNICIAN CPT-J3420 Vitamin B12 1000mcg (Cyanocobalamin) 14:35:50 SAFETY RELIEF VALVE TECHNICIAN CPT-J3420 Vitamin B12 1000mcg (Cyanocobalamin) 09:25:05 SAFETY RELIEF VALVE TECHNICIAN CPT-56069 Abx/Therapy Injection 09:25:05 SAFETY RELIEF VALVE TECHNICIAN CPT-G0008 Administration of Influenza Virus Vaccine 13:36:47 CDT CPT-44641 Fluzone High-Dose Intramuscular Suspension 11/15 13:36:47 CDT CPT-J0897 Prolia 60 mg 08:50:41 CDT CPT-15578 Abx/Therapy Injection 08:50:41 CDT CPT-80399 Bone Density 12:06:12 CDT CPT-50818 Bone Density 08:54:40 CDT CPT-OV Office Visit 15:37:02 CDT CPT-66961 Postop F/U Visit 15:47:49 CDT CPT-69602 Postop F/U Visit 15:21:02 CDT CPT-TCMH Transitional Care Mgmt-High 07:52:27 CDT 20 20/06/01 CPT-11263 Venipuncture Draw Fee 13:51:18 CDT CPT-51682 Venipuncture Draw Fee 10:14:55 SAFETY RELIEF VALVE TECHNICIAN CPT-41625 Venipuncture Draw Fee 13:39:45 SAFETY RELIEF VALVE TECHNICIAN CPT-OV Office Visit 15:11:22 SAFETY RELIEF VALVE TECHNICIAN CPT-81012 Venipuncture Draw Fee 09:20:49 SAFETY RELIEF VALVE TECHNICIAN CPT-24411 Venipuncture Draw Fee 16:52:15 SAFETY RELIEF VALVE TECHNICIAN CPT-40598 Venipuncture Draw Fee 10:37:24 SAFETY RELIEF VALVE TECHNICIAN CPT-38906 Venipuncture Draw Fee 08:21:21 SAFETY RELIEF VALVE TECHNICIAN CPT-23820 Venipuncture Draw Fee 08:30:20 SAFETY RELIEF VALVE TECHNICIAN CPT-91357 Venipuncture Draw Fee 14:53:21 SAFETY RELIEF VALVE TECHNICIAN CPT-82619 Venipuncture Draw Fee 09:40:56 SAFETY RELIEF VALVE TECHNICIAN CPT-21509 Venipuncture Draw Fee 10:30:47 SAFETY RELIEF VALVE TECHNICIAN CPT-35155 Venipuncture Draw Fee 10:46:17 SAFETY RELIEF VALVE TECHNICIAN CPT-35438 Venipuncture Draw Fee 11:12:45 SAFETY RELIEF VALVE TECHNICIAN CPT-64457 Venipuncture Draw Fee 09:53:33 SAFETY RELIEF VALVE TECHNICIAN CPT-06462 Venipuncture Draw Fee 11:53:51 SAFETY RELIEF VALVE TECHNICIAN CPT-49944 Venipuncture Draw Fee 10:33:50 SAFETY RELIEF VALVE TECHNICIAN CPT-32932 Venipuncture Draw Fee 10:05:01 SAFETY RELIEF VALVE TECHNICIAN CPT-38869 Venipuncture Draw Fee 14:32:52 SAFETY RELIEF VALVE TECHNICIAN CPT-46473 Venipuncture Draw Fee 09:46:13 SAFETY RELIEF VALVE TECHNICIAN CPT-39109 Venipuncture Draw Fee 11:34:27 SAFETY RELIEF VALVE TECHNICIAN CPT-49094 Venipuncture Draw Fee 13:17:16 SAFETY RELIEF VALVE TECHNICIAN CPT-86210 Venipuncture Draw Fee 12:05:39 CDT CPT-57687 Venipuncture Draw Fee 12:49:12 CDT CPT-63640 Venipuncture Draw Fee 12:37:18 CDT CPT-95978 Venipuncture Draw Fee 10:57:11 CDT CPT-51426 Venipuncture Draw Fee 13:47:40 CDT CPT-84825 Venipuncture Draw Fee 10:02:17 CDT CPT-64011 TB Tubersol 17:32:32 CDT CPT-OV Office Visit 16:21:53 CDT CPT-OV Office Visit 15:49:22 CDT CPT-OV Office Visit 17:16:31 CDT CPT-OV Office Visit 10:43:31 CDT
--- OUTSIDE RECORDS SUMMARY | 2019-02-09 12:47 | XMS REPORT | Clinical Summary ---
Author Author Renaldo, Florecita Munoz Organization [facility] Address Unknown Phone Unavailable Allergies, Adverse Reactions, [...] PhD Hyperpotassemia GERD 530.81 Resolved Kylie Yokum [employer] FOLDER Esophageal reflux Health maintenance exam V70.0 Resolved Adolfo Yates MD Routine general medical examination at a health care facility Anemia 285.9 Resolved Kylie Yanet [employer]DER Anemia, unspecified Personal history of malignant neoplasm of large intestine V10.05 Active Adam Yates MD Personal history of malignant neoplasm of large intestine Hypomagnesemia 275.2 Resolved Kylie Yanet [employer] F[employer]DER Disorders of magnesium metabolism Weakness 780.79 Resolved [...] Sebaceous cyst, scalp 706.2 Resolved Kylie Lundum [employer] F[employer]DER Sebaceous cyst Cervical lymphadenopathy, anterior, left 785.6 Resolv ed Kylie Holt [employer] Enlargement of lymph nodes Need for prophylactic vaccination and inoculation against in fluenza V04.81 Resolved Adam Yates MD Need for prophylactic vaccination and inoculation against influenza Preventive health care V70.0 Resolved Kylie deras [employer] Routine general medical examination at a health care facility Thyroid nodule, left 241.0 Active Kylie Holt A PRN Nontoxic uninodular goiter Screening mammogram V76.12 Active Kylie Holt AP RN Other screening mammogram Mandy 706.2 Resolved Kylie Yokum [employer] Sebaceous cyst Colon cancer, ascending 153.6 Resolved Kylie Yok um [employer] Malignant neoplasm of ascending colon Foot pain, left 729.5 Active Sulema Schwarz [employer]OMATIC [employer]GER Pain in limb Splinter 919.6 Resolved Kylie Yokum [employer] Superficial foreign body (splinter) of other, multiple, and unspecified sites, without major open wound and without mention of infection Rash 782.1 Resolved Kylie Yokum [employer] F[employer] Rash and other nonspecific skin eruption Cyst 706.2 Active Kylie Yogabbium [employer] F[employer]DER S ebaceous cyst Body Mass Index 23.0-23.9 Adult Active Kylie Yogabbium [employer] F[employer]DER Body Mass Index between 19-24, adult Unspecified fall, initial encounter E888.9 Active Kylieshubham Holt [employer] F[employer] Unspecified fall Eye pain, left 379.91 Active Kylie Yopari [employer] F[employer]DER Pain in or around eye ABDOMINAL PAIN, RIGHT LOWER QUADRANT ICD-789.03 Inactive Kina Joshua [employer]DER ADENOCARCINOMA, COLON, 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 Dick Yates MD ABDOMINAL PAIN, GENERALIZED ICD-789.07 Inactive Hope Benavidez MD PhD FEVER UNSPECIFIED ICD-780.60 Inactive Hope cohn MD PhD UNSPECIFIED VENOUS INSUFFICIENCY ICD-459.81 Elda ctive Adam Yates MD ADENOCARCINOMA, 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 Inac tive Hope Benavidez MD PhD Hyperkalemia ICD-276.7 Inactive Hope Benavidez MD PhD GERD ICD-530.81 Inactive Kylie Holt [employer] F[employer]DER 2015 Health maintenance exam ICD-V70.0 Bam Yates MD Anemia ICD-285.9 Inactive Kylie Lundum [employer] F[employer]DER 07/24 Hypomagnesemia ICD-275.2 Inactive Kylie Yokum [employer] F[employer] Weakness ICD-780.79 Inactive Hope Benavidez MD P [...] cyst, scalp ICD-706.2 Inactive Tracy hi Yokum [employer]ING F[employer] Cervical lymphadenopathy, anterior, left ICD-785.6 Inactive Kylie Yokum [employer] F[employer] Need for prophylactic vaccination and inoculation against in fluenza ICD-V04.81 Inactive Adam Yates MD Preventive health care ICD-V70.0 Inactive Ka thi Yokum [employer]IPPER [employer]ING FOLDER Mandy ICD-706.2 Inactive Kylie Yokum [employer] F[employer]DER 07/20 Colon cancer, ascending ICD-153.6 Inactive K athi Yokum [employer] FOLDER Splinter ICD-919.6 Inactive Kylie Yokum [employer] F[employer] 2017 Rash ICD-782.1 Inactive Kylie Yokum [employer] 07/25 Medication List Medication Instructions Start Date Stop Date Generic Name NDC Status Provider Patient Instruction IMODIUM A-D 2 MG ORAL TABLET 1 tablet twice a day LOPERAMIDE HCL 19105480190 Active Kylie Yokum [employer] F[employer]DER Active VOLTAREN 1 % TRANSDERMAL GEL apply q 6-8 hour to left arm as needed for pain DICLOFENAC SODIUM 99925725401 Active Kylie Yokum [employer] F[employer]DER Active COQ10 100 MG ORAL CAPSULE 1 daily COENZYME Q10 443100 43329 Active LETY Nation Active VITAMIN D3 2000 UNIT ORAL CAPSULE Melaleuca-One daily CHOLECALCIFEROL 39137149713 Active Kylie Holt APRN Active PROBIOTIC DAILY ORAL CAPSULE Take one daily PROBIO TIC PRODUCT 25080328482 Active Kylie Holt [employer]DER Active IRON 325 (65 Fe) MG ORAL TABLET 1 every other day FERROUS SULFATE 52740554862 No Longer Active Kylie Holt APRN Active FLORANEX ORAL PACKET 1 pack three times daily, for bowel health LACTOBACILLUS 39621554981 No Longer Active Kylie Holt APRN Active LOMOTIL 2.5-0.025 MG ORAL TABLET 1 tab by mouth prn 23/10/23 DIPHENOXYLATE-ATROPINE 32708971893 No Longer Active Kylie Holt APRN Active MAGNESIUM GLUCONATE 250 MG ORAL TABLET 1 tab tid 23/10/23 MAGNESIUM GLUCONATE 09281779439 No Longer Active Kylie Holt APRN Active CYANOCOBALAMIN 1000 MCG/ML INJECTION SOLUTION 1 injection ev ruben 2 weeks CYANOCOBALAMIN 97947704061 No Longer Active Kylie Lund um [employer] Active ATENOLOL 25 MG ORAL TABLET 1/2 pill by mouth daily, fo r headaches, blood pressure ATENOLOL 76963793132 Active Kylie Holt APRN Active PROPRANOLOL HCL 80 MG ORAL TABLET 1 tab tue. and thur. PROPRANOLOL HCL 93612487560 No Longer Active Hope Benavidez MD PhD A ctive VITAMIN D3 4000 IU 1 tab 3 times daily VITAMIN D3 4000 IU No Longer Active Hope Benavidez MD PhD Active BACTRIM DS 800-160 MG ORAL TABLET 1 pill by mouth twice claudio y, for UTI SULFAMETHOXAZOLE-TRIMETHOPRIM 87679555134 No Longer Active Hope Benavidez MD PhD Active PROLIA 60 MG/ML SUBCUTANEOUS SOLUTION 1 shot every 6 months for osteoprosis DENOSUMAB 20341324889 Active Hope Benavidez MD PhD Active CALCIUM + D + K 750-500-40 MG-UNT-MCG ORAL TABLET 1 tab by m out twice daily CALCIUM-VITAMIN D-VITAMIN K 87138147048 Active Hope valdez MD PhD Active DAILY VALUE MULTIVITAMIN ORAL TABLET 1 tab by mouth twice daily 201 05/16/14 MULTIPLE VITAMIN 03573295478 Active Hope Benavidez MD PhD Acti ve FISH OIL 306 MG CAPS 1 tab by mouth three times daily OMEGA-3 FATTY ACIDS 30235918942 Active Hope Benavidez MD PhD Active LUTEIN 10 MG ORAL TABLET 1 tab daily LUTEIN 92491965 408 Active Hope Benavidez MD PhD Active TRIAMTERENE-HCTZ 37.5-25 MG ORAL TABLET 1 tab by mouth daily 10/22 TRIAMTERENE-HCTZ 09594686274 Active Kylie Escalonapari REYES Active CYCLOBENZAPRINE HCL 10 MG ORAL TABLET 1 tablet by mout h three times daily as needed for headaches CYCLOBENZAPRINE HCL 01487459811 No Longer Active Adam Yates MD Active OMEPRAZOLE 20 MG ORAL CAPSULE DELAYED RELEASE 1 tablet by [facility] daily for GERD OMEPRAZOLE 94173594871 No Longer Active Adam Yates MD Active ZOFRAN 8 MG ORAL TABLET 1 tab by mouth every 12 hours prn 4 ONDANSETRON HCL 22452366218 No Longer Active Adam Yates MD Active PHENADOZ 25 MG RECTAL SUPPOSITORY 1 every 4 hrs. PRN 2 PROMETHAZINE HCL 69225951164 No Longer Active Adam Yates MD A ctive POTASSIUM CHLORIDE 20 MEQ ORAL PACKET by mouth twice a day prn 2 POTASSIUM CHLORIDE 45482366205 No Longer Active Adam Carpenter MD Active PROMETHAZINE HCL 25 MG ORAL TABLET 1 Q. 4 hr. PRN PROMETHAZINE HCL 25787956098 No Longer Active Adam Yates MD Active INNOPRAN XL 120 MG ORAL CAPSULE EXTENDED RELEASE 24 HO UR Take one by mouth daily PROPRANOLOL HCL SR BEADS 64023529809 No Longer Active Adam Yates MD Active FLAGYL 500 MG ORAL TABLET 1 pill by mouth three times daily, for diarrhea METRONIDAZOLE 65000105752 No Longer Active Hope landers MD PhD Active DYAZIDE 37.5-25 MG ORAL CAPSULE 1 qd TRIA MTERENE-HCTZ 36857767685 No Longer Active Hope Benavidez MD PhD Active PROZAC 20 MG ORAL CAPSULE 1 q d FLUOXETINE HCL 22619239964 No Longer Active Hope Benavidez MD PhD Active SIMVASTATIN 40 MG ORAL TABLET 1 qd SIMVAS TATIN 31852832707 No Longer Active Adam Yates MD Active MELOXICAM 15 MG ORAL TABLET 1 qd MELOXICAM 56100756118 No Longer Active Adam Yates MD Active EXCEDRIN EXTRA STRENGTH 250-250-65 MG ORAL TABLET 1-2 q6h OK N headache AIMNGCP-UIDUEINIAYERF-LLZLITCZ 02255789780 Active Hope Benavidez MD PhD Active FLAGYL 500 MG ORAL TABLET 1 qid METRONIDAZOL E 43595176151 No Longer Active Adam Yates MD Active LEVAQUIN 750 MG ORAL TABLET 1 qd LEVOFLOXAC IN 30002511811 No Longer Active Adam Yates MD Active ADULT ASPIRIN LOW STRENGTH 81 MG ORAL TABLET DISINTEGRATING 1 qd ASPIRIN 04332977597 Active Hope Benavidez MD PhD Active LEVAQUIN 750 MG ORAL TABLET 1 qd LEVAQUIN 750 MG ORAL TABLET 764537 LEVOFLOXACIN Inactive FLAGYL 500 MG ORAL TABLET 1 qid FLAGYL 500 MG ORAL TABLET 958019 METRONIDAZOLE Inactive MELOXICAM 15 MG ORAL TABLET 1 qd MELOXICAM 15 MG ORAL TABLET 624037 MELOXICAM Inactive SIMVASTATIN 40 MG ORAL TABLET 1 qd SIMVASTATIN 40 MG ORAL TABLET 670153 SIMVASTATIN Inactive PROZAC 20 MG ORAL CAPSULE 1 q d PROZAC 20 MG ORAL CAPSULE 048321 FLUOXETINE HCL Inactive DYAZIDE 37.5-25 MG ORAL CAPSULE 1 qd 5 DYAZIDE 37.5-25 MG ORAL CAPSULE 638868 TRIAMTERENE-HCTZ Inactive INNOPRAN XL 120 MG ORAL CAPSULE EXTENDED RELEASE 24 HO UR Take one by mouth daily INNOPRAN XL 120 MG ORAL CAPSULE EXTENDED RELEASE 24 HOUR PROPRANOLOL HCL SR BEADS Inactive PROMETHAZINE HCL 25 MG ORAL TABLET 1 Q. 4 hr. PRN 2013 PROMETHAZINE HCL 25 MG ORAL TABLET 270058 PROMETHAZINE HCL Inactive POTASSIUM CHLORIDE 20 MEQ ORAL PACKET by mouth twice a day prn 2 POTASSIUM CHLORIDE 20 MEQ ORAL PACKET 2129520 POTASSIUM CHLORIDE Inactive PHENADOZ 25 MG RECTAL SUPPOSITORY 1 every 4 hrs. PRN 2 PHENADOZ 25 MG RECTAL SUPPOSITORY 455717 PROMETHAZINE HCL Inactive ZOFRAN 8 MG ORAL TABLET 1 tab by mouth every 12 hours prn 4 ZOFRAN 8 MG ORAL TABLET 793264 ONDANSETRON HCL Inactive OMEPRAZOLE 20 MG ORAL CAPSULE DELAYED RELEASE 1 tablet by mo uth daily for GERD OMEPRAZOLE 20 MG ORAL CAPSULE DELAYED RELEASE 19 8051 OMEPRAZOLE Inactive CYCLOBENZAPRINE HCL 10 MG ORAL TABLET 1 tablet by mout h three times daily as needed for headaches CYCLOBENZAPRINE HCL 10 MG ORAL TABLET 738920 CYCLOBENZAPRINE HCL Inactive VITAMIN D3 4000 IU 1 tab 3 times daily VITAMIN D3 4000 IU Inactive PROPRANOLOL HCL 80 MG ORAL TABLET 1 tab tue. and thur. PROPRANOLOL HCL 80 MG ORAL TABLET 845555 PROPRANOLOL HCL Inacti ve CYANOCOBALAMIN 1000 MCG/ML INJECTION SOLUTION 1 injection ev ruben 2 weeks CYANOCOBALAMIN 1000 MCG/ML INJECTION SOLUTION 30 9594 CYANOCOBALAMIN Inactive MAGNESIUM GLUCONATE 250 MG ORAL TABLET 1 tab tid 20 23/10/23 MAGNESIUM GLUCONATE 250 MG ORAL TABLET 449266 MAGNESIUM GLUCONATE Inactive LOMOTIL 2.5-0.025 MG ORAL TABLET 1 tab by mouth prn 20 23/10/23 LOMOTIL 2.5-0.025 MG ORAL TABLET 2311109 DIPHENOXYLATE-ATROPINE Inac tive FLORANEX ORAL PACKET 1 pack three times daily, for bowel health FLORANEX ORAL PACKET 99529846703 LACTOBACILLUS Inactive IRON 325 (65 Fe) MG ORAL TABLET 1 every other day 2015 IRON 325 (65 Fe) MG ORAL TABLET 329626 FERROUS SULFATE Inactive FLAGYL 500 MG ORAL TABLET 1 pill by mouth three times daily, for diarrhea FLAGYL 500 MG ORAL TABLET 776026 METRONIDAZOLE I nactive BACTRIM DS 800-160 MG ORAL TABLET 1 pill by mouth twice claudio y, for UTI BACTRIM DS 800-160 MG ORAL TABLET 744236 SULFAMETHOXAZOLE-TRIMETHOPRIM Inactive Advance Directives Directive Description Start [...] ... - Chemistry sodium, serum 138 mmol/L 745-637 9407/12/15 potassium, serum 4.0 mmol/L 3.5-5.2 chloride, serum [...] - Chem istry sodium, serum 142 mmol/L 940-952 4853/04/19 carbon dioxide, venous blood 30.2 mmol/L 21.0-32 [...] 0.00-1.00 Encounters Code Encounter Date Provider Facility CPT-80862 Level 2 Est. Patient 14:58:26 CDT Kylie Lund [facility] [place] CPT-32609 Level 3 Est. Patient 08:15:24 SLABBING MACHINE OPERATOR Kylie Lund [facility] [place] CPT-38471 Level 2 Est. Patient 14:27:16 SLABBING MACHINE OPERATOR Kylie boyd [facility] [place] CPT-83896 Level 3 Est. Patient 17:54:48 CDT Kylie uLnd [facility] [place] CPT-16928 Level 3 Est. Patient 16:26:30 CDT Kina blackmon [facility] CPT-59099 Level 3 New Patient 16:22:01 SLABBING MACHINE OPERATOR Adam Yates MD [facility] CPT-40487 Level 4 Est. Patient 17:00:48 CDT [facility] CPT-46069 Level 3 Est. Patient 13:15:54 CDT Kylie boyd [facility] CPT-96910 Level 3 Est. Patient 09:10:11 CDT Kylie boyd [facility] CPT-42486 Level 4 Est. Patient 12:08:30 SLABBING MACHINE OPERATOR Hope cohn MD [facility] CPT-43336 Level 4 Est. Patient 19:08:42 SLABBING MACHINE OPERATOR Hope cohn MD [facility] CPT-93549 Level 4 Est. Patient 20:04:51 CDT Hope cohn MD [facility] CPT-47007 Level 3 New Patient 01:46:11 SLABBING MACHINE OPERATOR Hope landers MD [facility] Procedures Code Procedure Name Date Entry Date Standard Desc ription CPT-18637 Venipuncture Draw Fee 10:59:04 CDT CPT-43387 CMP - LAB USE ONLY 10:59:04 CDT CPT-73366 CBC with Diff - LAB USE ONLY 10:59:03 CDT 2 CPT-J0897 Prolia 60 mg 15:46:54 SLABBING MACHINE OPERATOR CPT-16486 Abx/Therapy Injection 15:46:54 SLABBING MACHINE OPERATOR CPT-56614 Microalbumin - LAB USE ONLY 09:41:32 SLABBING MACHINE OPERATOR 20 23/01/15 CPT-30929 Free T4 - LAB USE ONLY 09:41:32 SLABBING MACHINE OPERATOR CPT-10564 TSH - LAB USE ONLY 09:41:32 SLABBING MACHINE OPERATOR CPT-93434 BMP - LAB USE ONLY 09:41:32 SLABBING MACHINE OPERATOR CPT-82063 Venipuncture Draw Fee 09:41:32 SLABBING MACHINE OPERATOR CPT-71498 First Vx - Ix admin for Medicare patients 11:19:30 CDT CPT-31320 Fluzone High-Dose Intramuscular Suspension 12/07 11:19:30 CDT CPT-J0897 Prolia 60 mg 14:55:42 CDT CPT-79722 Abx/Therapy Injection 14:55:42 CDT CPT-43244 Bone Density - XRAY USE ONLY 10:27:12 CDT 2 CPT-G0439 Subsequent Annual Wellness Exam 17:54:53 CDT CPT-56874 Foot, left, comp min 3V - XRAY USE ONLY 12:22:49 CDT CPT-G0009 Administration of Pneumococcal Vaccine 3 12:18:00 CDT CPT-64827 Pneumovax 23 Injection Injectable 25 MCG /0.5ML 12:18:00 CDT CPT-J0897 Prolia 60 mg 14:14:16 SLABBING MACHINE OPERATOR CPT-39648 Abx/Therapy Injection 14:14:15 SLABBING MACHINE OPERATOR CPT-62841 Lipid - LAB USE ONLY 10:01:52 SLABBING MACHINE OPERATOR 2 CPT-47247 Calcium - LAB USE ONLY 10:01:51 SLABBING MACHINE OPERATOR CPT-75788 Venipuncture Draw Fee 10:01:51 SLABBING MACHINE OPERATOR CPT-LR Lesion Removal 16:22:01 SLABBING MACHINE OPERATOR CPT-35845 TSH - LAB USE ONLY 14:26:02 CDT CPT-42142 CMP - LAB USE ONLY 14:26:01 CDT CPT-81458 CBC with Diff - LAB USE ONLY 14:26:01 CDT 2 CPT-48096 Venipuncture Draw Fee 14:26:01 CDT CPT-51026 First Vx - Ix admin for Medicare patients 13:27:08 CDT CPT-09328 Fluzone High-Dose Intramuscular Suspension 11/26 13:27:08 CDT CPT-G0438 Initial Annual Wellness Exam 14:19:57 CD T CPT-G0009 Administration of Pneumococcal Vaccine 9 11:36:25 CDT CPT-53168 Prevnar 13 Intramuscular Suspension 1 1:36:25 CDT CPT-96719 Prevnar 13 Intramuscular Suspension 1 0:40:58 CDT CPT-J0897 Prolia 60 mg 10:37:16 CDT CPT-83806 Abx/Therapy Injection 10:37:16 CDT CPT-J0897 Prolia 60 mg 16:09:34 SLABBING MACHINE OPERATOR CPT-J0897 Prolia 60 mg 11:10:35 SLABBING MACHINE OPERATOR CPT-87675 Abx/Therapy Injection 11:10:35 SLABBING MACHINE OPERATOR CPT-000 Give Appropriate Flu Vaccine 17:01:15 SLABBING MACHINE OPERATOR 2 CPT-30583 Fluzone High Dose (65+) 15:03:08 SLABBING MACHINE OPERATOR 02/15 CPT-16499 Immunization Single Admin 15:03:08 SLABBING MACHINE OPERATOR 2014 CPT-OV Office Visit 15:58:06 CDT CPT-J0897 Prolia 60 mg 08:45:38 CDT CPT-11075 Abx/Therapy Injection 08:45:38 CDT CPT-J3420 Vitamin B12 1000mcg (Cyanocobalamin) 09:26:20 SLABBING MACHINE OPERATOR CPT-82636 Abx/Therapy Injection 09:26:20 SLABBING MACHINE OPERATOR CPT-J3420 Vitamin B12 1000mcg (Cyanocobalamin) 09:44:40 SLABBING MACHINE OPERATOR CPT-55910 Abx/Therapy Injection 09:44:40 SLABBING MACHINE OPERATOR CPT-J3420 Vitamin B12 1000mcg (Cyanocobalamin) 09:15:54 SLABBING MACHINE OPERATOR CPT-87841 Abx/Therapy Injection 09:15:54 SLABBING MACHINE OPERATOR CPT-J3420 Vitamin B12 1000mcg (Cyanocobalamin) 09:46:44 SLABBING MACHINE OPERATOR CPT-71337 Abx/Therapy Injection 09:46:44 SLABBING MACHINE OPERATOR CPT-J3420 Vitamin B12 1000mcg (Cyanocobalamin) 09:47:34 SLABBING MACHINE OPERATOR CPT-82258 Abx/Therapy Injection 09:47:34 SLABBING MACHINE OPERATOR CPT-J3420 Vitamin B12 1000mcg (Cyanocobalamin) 14:35:50 SLABBING MACHINE OPERATOR CPT-J3420 Vitamin B12 1000mcg (Cyanocobalamin) 09:25:05 SLABBING MACHINE OPERATOR CPT-40162 Abx/Therapy Injection 09:25:05 SLABBING MACHINE OPERATOR CPT-G0008 Administration of Influenza Virus Vaccine 13:36:47 CDT CPT-19388 Fluzone High-Dose Intramuscular Suspension 11/15 13:36:47 CDT CPT-J0897 Prolia 60 mg 08:50:41 CDT CPT-14369 Abx/Therapy Injection 08:50:41 CDT CPT-36778 Bone Density 12:06:12 CDT CPT-50921 Bone Density 08:54:40 CDT CPT-OV Office Visit 15:37:02 CDT CPT-22966 Postop F/U Visit 15:47:49 CDT CPT-36203 Postop F/U Visit 15:21:02 CDT CPT-TCMH Transitional Care Mgmt-High 07:52:27 CDT 20 20/06/01 CPT-74427 Venipuncture Draw Fee 13:51:18 CDT CPT-57956 Venipuncture Draw Fee 10:14:55 SLABBING MACHINE OPERATOR CPT-13178 Venipuncture Draw Fee 13:39:45 SLABBING MACHINE OPERATOR CPT-OV Office Visit 15:11:22 SLABBING MACHINE OPERATOR CPT-84152 Venipuncture Draw Fee 09:20:49 SLABBING MACHINE OPERATOR CPT-38854 Venipuncture Draw Fee 16:52:15 SLABBING MACHINE OPERATOR CPT-62662 Venipuncture Draw Fee 10:37:24 SLABBING MACHINE OPERATOR CPT-91161 Venipuncture Draw Fee 08:21:21 SLABBING MACHINE OPERATOR CPT-84077 Venipuncture Draw Fee 08:30:20 SLABBING MACHINE OPERATOR CPT-71588 Venipuncture Draw Fee 14:53:21 SLABBING MACHINE OPERATOR CPT-10402 Venipuncture Draw Fee 09:40:56 SLABBING MACHINE OPERATOR CPT-32265 Venipuncture Draw Fee 10:30:47 SLABBING MACHINE OPERATOR CPT-13661 Venipuncture Draw Fee 10:46:17 SLABBING MACHINE OPERATOR CPT-85473 Venipuncture Draw Fee 11:12:45 SLABBING MACHINE OPERATOR CPT-50494 Venipuncture Draw Fee 09:53:33 SLABBING MACHINE OPERATOR CPT-74426 Venipuncture Draw Fee 11:53:51 SLABBING MACHINE OPERATOR CPT-22854 Venipuncture Draw Fee 10:33:50 SLABBING MACHINE OPERATOR CPT-74397 Venipuncture Draw Fee 10:05:01 SLABBING MACHINE OPERATOR CPT-50427 Venipuncture Draw Fee 14:32:52 SLABBING MACHINE OPERATOR CPT-29461 Venipuncture Draw Fee 09:46:13 SLABBING MACHINE OPERATOR CPT-73870 Venipuncture Draw Fee 11:34:27 SLABBING MACHINE OPERATOR CPT-02264 Venipuncture Draw Fee 13:17:16 SLABBING MACHINE OPERATOR CPT-27106 Venipuncture Draw Fee 12:05:39 CDT CPT-73572 Venipuncture Draw Fee 12:49:12 CDT CPT-05910 Venipuncture Draw Fee 12:37:18 CDT CPT-05678 Venipuncture Draw Fee 10:57:11 CDT CPT-84391 Venipuncture Draw Fee 13:47:40 CDT CPT-63807 Venipuncture Draw Fee 10:02:17 CDT CPT-25749 TB Tubersol 17:32:32 CDT CPT-OV Office Visit 16:21:53 CDT CPT-OV Office Visit 15:49:22 CDT CPT-OV Office Visit 17:16:31 CDT CPT-OV Office Visit 10:43:31 CDT
--- OUTSIDE RECORDS SUMMARY | 2019-02-09 12:47 | XMS REPORT | Clinical Summary ---
Author Author Admin, Florecita Munoz Organization [facility] [employer] Address Unknown Phone Unavailable Allergies, Adverse Reactions, [...] Sebaceous cyst, scalp 706.2 Resolved Kylie Holt JUNIOR MARKETING ASSOCIATE Sebaceous cyst Cervical lymphadenopathy, anterior, left 785.6 Resolv ed Kylie Holt JUNIOR MARKETING ASSOCIATE Enlargement of lymph nodes Need for prophylactic vaccination and inoculation against in fluenza V04.81 Active Citlaly Watkins RMA Need for prophylactic vaccination and inoculation against influenza Preventive health care V70.0 Active Kylie Holt JUNIOR MARKETING ASSOCIATE Routine general medical examination at a health care facility Thyroid nodule, left 241.0 Active Kylie Gonzalez PRN Nontoxic uninodular goiter Screening mammogram V76.12 Active Kylie MEEK RN Other screening mammogram ABDOMINAL PAIN, RIGHT LOWER QUADRANT ICD-789.03 Inactive Kina Joshua JUNIOR MARKETING ASSOCIATE ADENOCARCINOMA, COLON, 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 Dick Yates MD ABDOMINAL PAIN, GENERALIZED ICD-789.07 Inactive Hope Benavidez MD PhD FEVER UNSPECIFIED ICD-780.60 Inactive Hope cohn MD PhD UNSPECIFIED VENOUS INSUFFICIENCY ICD-459.81 Elda ctive Adam Yates MD ADENOCARCINOMA, 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 Inac tive Hope Benavidez MD PhD Hyperkalemia ICD-276.7 Inactive Hope Benavidez MD PhD GERD ICD-530.81 Inactive Kylie Holt JUNIOR MARKETING ASSOCIATE 2015 Health maintenance exam ICD-V70.0 Bam Yates MD Anemia ICD-285.9 Inactive Kylie Holt JUNIOR MARKETING ASSOCIATE 07/24 Weakness ICD-780.79 Inactive Hope Benavidez MD P hD Aftercare following surgery of the teeth,oral cavity a nd digestive system, NEC ICD-V58.75 Inactive Adam Yates MD Colon cancer ICD-153.9 Inactive Adam luna MD Asymptomatic postmenopausal status (age-related) (natural) I CD-V49.81 Inactive Hope Benavidez MD PhD Dysuria ICD-788.1 Inactive Hope Benavidez MD PhD 201 05/19/01 Sebaceous cyst, scalp ICD-706.2 Inactive Tracy Holt JUNIOR MARKETING ASSOCIATE Cervical lymphadenopathy, anterior, left ICD-785.6 Inactive Kylie Holt JUNIOR MARKETING ASSOCIATE Medication List Medication Instructions Start Date Stop Date Generic Name NDC Status Provider Patient Instruction VITAMIN D3 2000 UNIT ORAL CAPS Melaleuca-One daily CHOLECALCIFEROL 21035880942 Active Kylie Lundum JUNIOR MARKETING ASSOCIATE Active PROBIOTIC DAILY ORAL CAPS Take one daily PROBIOTIC PRODUCT 33246862982 Active Kylie Lundum JUNIOR MARKETING ASSOCIATE Active IRON 325 (65 FE) MG TABS 1 every other day FERR OUS SULFATE 11876345677 No Longer Active Kylie Lundum JUNIOR MARKETING ASSOCIATE Active FLORANEX PACK 1 pack three times daily, for bowel health LACTOBACILLUS 97713920195 No Longer Active Kylie Lundum JUNIOR MARKETING ASSOCIATE Active LOMOTIL 2.5-0.025 MG TABS 1 tab by mouth prn 4 DIPHENOXYLATE-ATROPINE 23200369354 No Longer Active Kylie Yokum JUNIOR MARKETING ASSOCIATE Active MAGNESIUM GLUCONATE 250 MG TABS 1 tab tid 4 MAGNESIUM GLUCONATE 16035175240 No Longer Active Kylie Yokum JUNIOR MARKETING ASSOCIATE Active CYANOCOBALAMIN 1000 MCG/ML INJ SOLN 1 injection every 2 weeks 20 20/01/03 CYANOCOBALAMIN 99692615708 No Longer Active Kylie Yokum JUNIOR MARKETING ASSOCIATE Active ATENOLOL 25 MG ORAL TABS 1/2 pill by mouth daily, for headac hes, blood pressure ATENOLOL 92226889362 Active Kylie Yokum JUNIOR MARKETING ASSOCIATE Active PROPRANOLOL HCL 80 MG TABS 1 tab tue. and thur. 04/10 PROPRANOLOL HCL 19314032517 No Longer Active Hope Benavidez MD PhD A ctive VITAMIN D3 4000 IU 1 tab 3 times daily VITAMIN D3 4000 IU No Longer Active Hope Benavidez MD PhD Active BACTRIM DS 800-160 MG TABS 1 pill by mouth twice daily, for UTI SULFAMETHOXAZOLE-TRIMETHOPRIM 47154656597 No Longer Active A attila Benavidez MD PhD Active PROLIA 60 MG/ML SOLN 1 shot every 6 months for osteoprosis DENOSUMAB 07883928324 Active Hope Benavidez MD PhD Active CALCIUM + D + K 750-500-40 MG-UNT-MCG TABS 1 tab by mouth tw ice daily CALCIUM-VITAMIN D-VITAMIN K 60383564920 Active Hope landers MD PhD Active DAILY VALUE MULTIVITAMIN TABS 1 tab by mouth twice daily MULTIPLE VITAMIN 35738110174 Active Hope Benavidez MD PhD Active FISH OIL 306 MG CAPS 1 tab by mouth three times daily OMEGA-3 FATTY ACIDS 59203429223 Active Hope Benavidez MD PhD Active LUTEIN 10 MG TABS 1 tab daily LUTEIN 03103115690 Act cash Hope Benavidez MD PhD Active TRIAMTERENE-HCTZ 37.5-25 MG TABS 1 tab by mouth daily TRIAMTERENE-HCTZ 81616955410 Active Kylie Holt JUNIOR MARKETING ASSOCIATE Active CYCLOBENZAPRINE HCL 10 MG TABS 1 tablet by mouth three times daily as needed for headaches CYCLOBENZAPRINE HCL 07005395750 No Longe r Active Adam Ytaes MD Active OMEPRAZOLE 20 MG CPDR 1 tablet by mouth daily for GERD OMEPRAZOLE 27874815046 No Longer Active Adam Yates MD A ctive ZOFRAN 8 MG TABS 1 tab by mouth every 12 hours prn 201 05/16/09 ONDANSETRON HCL 56260271806 No Longer Active Adam Yates MD Active PHENADOZ 25 MG SUPP 1 every 4 hrs. PRN PROMETHA ZINE HCL 54014114776 No Longer Active Adam Yates MD Active POTASSIUM CHLORIDE 20 MEQ PACK by mouth twice a day prn POTASSIUM CHLORIDE 92787069533 No Longer Active Adam Yates MD Active PROMETHAZINE HCL 25 MG TABS 1 Q. 4 hr. PRN PROM ETHAZINE HCL 81149429968 No Longer Active Adam Yates MD Active INNOPRAN XL 120 MG [id number] Take one by mouth daily 2 PROPRANOLOL HCL SR BEADS 64737957092 No Longer Active Adam Yates MD A ctive FLAGYL 500 MG TABS 1 pill by mouth three times daily, for diarrh ea METRONIDAZOLE 08338768771 No Longer Active Hope Benavidez MD PhD Active DYAZIDE 37.5-25 MG CAPS 1 qd TRIAMTERENE-HC TZ 19771561630 No Longer Active Hope Benavidez MD PhD Active PROZAC 20 MG CAPS 1 q d FLUOXETINE HCL 94684 314451 No Longer Active Hope Benavidez MD PhD Active SIMVASTATIN 40 MG TABS 1 qd SIMVASTATIN 004 69530657 No Longer Active Adam Yates MD Active MELOXICAM 15 MG TABS 1 qd MELOXICAM 8434736 8137 No Longer Active Adam Yates MD Active IMODIUM A-D 2 MG TABS 2 onset at diarrhea and prn. LOPERAMIDE HCL 48341340600 Active Hope Benavidez MD PhD Active EXCEDRIN EXTRA STRENGTH 250-250-65 MG TABS 1-2 q6h PRN headache 201 04/16/21 [id number] 05755410947 Active Hope Benavidez MD PhD Active FLAGYL 500 MG TABS 1 qid METRONIDAZOLE 50644 829265 No Longer Active Adam Yates MD Active LEVAQUIN 750 MG TABS 1 qd LEVOFLOXACIN 5486 5028051 No Longer Active Adam Yates MD Active ADULT ASPIRIN LOW STRENGTH 81 MG TBDP 1 qd A SPIRIN 26110595326 Active Hope Benavidez MD PhD Active LEVAQUIN 750 MG TABS 1 qd LEVAQUIN 750 MG T ABS 664775 LEVOFLOXACIN Inactive FLAGYL 500 MG TABS 1 qid FLAGYL 500 MG TABS 327872 METRONIDAZOLE Inactive MELOXICAM 15 MG TABS 1 qd MELOXICAM 15 MG T ABS 564186 MELOXICAM Inactive SIMVASTATIN 40 MG TABS 1 qd SIMVASTATIN 40 MG TABS 755011 SIMVASTATIN Inactive PROZAC 20 MG CAPS 1 q d PROZAC 20 MG CAPS 31 0385 FLUOXETINE HCL Inactive DYAZIDE 37.5-25 MG CAPS 1 qd DYAZIDE 37.5 -25 MG CAPS 359384 TRIAMTERENE-HCTZ Inactive INNOPRAN XL 120 MG [id number] Take one by mouth daily 2 INNOPRAN XL 120 MG [id number] PROPRANOLOL HCL SR BEADS Inactive PROMETHAZINE HCL 25 MG TABS 1 Q. 4 hr. PRN PROMETHAZINE HCL 25 MG TABS 654768 PROMETHAZINE HCL Inactive POTASSIUM CHLORIDE 20 MEQ PACK by mouth twice a day prn POTASSIUM CHLORIDE 20 MEQ PACK 712694 POTASSIUM CHLORIDE Inactive PHENADOZ 25 MG SUPP 1 every 4 hrs. PRN PHENADOZ 2 5 MG SUPP 218734 PROMETHAZINE HCL Inactive ZOFRAN 8 MG TABS 1 tab by mouth every 12 hours prn 201 05/16/09 ZOFRAN 8 MG TABS 058960 ONDANSETRON HCL Inactive OMEPRAZOLE 20 MG CPDR 1 tablet by mouth daily for GERD OMEPRAZOLE 20 MG CPDR 187003 OMEPRAZOLE Inactive CYCLOBENZAPRINE HCL 10 MG TABS 1 tablet by mouth three times daily as needed for headaches CYCLOBENZAPRINE HCL 10 MG TABS 653167 CYCLOBENZAPRINE HCL Inactive VITAMIN D3 4000 IU 1 tab 3 times daily VITAMIN D3 4000 IU Inactive PROPRANOLOL HCL 80 MG TABS 1 tab tue. and thur. 04/10 PROPRANOLOL HCL 80 MG TABS 393631 PROPRANOLOL HCL Inactive CYANOCOBALAMIN 1000 MCG/ML INJ SOLN 1 injection every 2 weeks 20 20/01/03 CYANOCOBALAMIN 1000 MCG/ML INJ SOLN 308060 CYANOCOBALAM IN Inactive MAGNESIUM GLUCONATE 250 MG TABS 1 tab tid 4 MAGNESIUM GLUCONATE 250 MG TABS 191177 MAGNESIUM GLUCONATE Inactive LOMOTIL 2.5-0.025 MG TABS 1 tab by mouth prn 4 LOMOTIL 2.5- 0.025 MG TABS 4444464 DIPHENOXYLATE-ATROPINE Inactive FLORANEX PACK 1 pack three times daily, for bowel health FLORANEX PACK LACTOBACILLUS Inactive IRON 325 (65 FE) MG TABS 1 every other day IRON 325 (65 FE) MG TABS 916964 FERROUS SULFATE Inactive FLAGYL 500 MG TABS 1 pill by mouth three times daily, for diarrh ea FLAGYL 500 MG TABS 227174 METRONIDAZOLE Inactive BACTRIM DS 800-160 MG TABS 1 pill by mouth twice daily, for UTI BACTRIM DS 800-160 MG TABS 982322 SULFAMETHOXAZOLE-TRIM ETHOPRIM Inactive Advance Directives Directive Description [...] Panel - Chemistry sodium, serum 142 mmol/L 062-588 5706/04/20 carbon dioxide, venous blood 34.7 mmol/L 21.0-32 [...] ... - Chemistry sodium, serum 139 mmol/L 297-962 4123/10/20 carbon dioxide, venous blood 32.2 mmol/L 21.0-32 [...] ng/mL Encounters Code Encounter Date Provider Facility CPT-91744 Level 4 Est. Patient 17:00:48 CDT Kylie boyd [facility] CPT-53381 Level 3 Est. Patient 13:15:54 CDT Kylie Lund [facility] CPT-41921 Level 3 Est. Patient 09:10:11 CDT Kylie Lund [facility] CPT-01189 Level 4 Est. Patient 12:08:30 CURRICULUM COORDINATOR [facility] cohn MD [facility] CPT-98453 Level 4 Est. Patient 19:08:42 CURRICULUM COORDINATOR [facility] CPT-24024 Level 4 Est. Patient 20:04:51 CDT [facility] CPT-17873 Level 3 New Patient 01:46:11 CURRICULUM COORDINATOR [facility] landers [facility] Procedures Code Procedure Name Date Entry Date Standard Desc ription CPT-30822 TSH - LAB USE ONLY 14:26:02 CDT CPT-58190 CMP - LAB USE ONLY 14:26:01 CDT CPT-27200 CBC with Diff - LAB USE ONLY 14:26:01 CDT 2 CPT-34171 Venipuncture Draw Fee 14:26:01 CDT CPT-73920 First Vx - Ix admin for Medicare patients 13:27:08 CDT CPT-97043 Fluzone High-Dose Intramuscular Suspension 11/26 13:27:08 CDT CPT-G0438 Initial Annual Wellness Exam 14:19:57 CD T CPT-G0009 Administration of Pneumococcal Vaccine 9 11:36:25 CDT CPT-62803 Prevnar 13 Intramuscular Suspension 1 1:36:25 CDT CPT-66641 Prevnar 13 Intramuscular Suspension 1 0:40:58 CDT CPT-J0897 Prolia 60 mg 10:37:16 CDT CPT-82892 Abx/Therapy Injection 10:37:16 CDT CPT-J0897 Prolia 60 mg 16:09:34 CURRICULUM COORDINATOR CPT-J0897 Prolia 60 mg 11:10:35 CURRICULUM COORDINATOR CPT-34963 Abx/Therapy Injection 11:10:35 CURRICULUM COORDINATOR CPT-000 Give Appropriate Flu Vaccine 17:01:15 CURRICULUM COORDINATOR 2 CPT-36628 Fluzone High Dose (65+) 15:03:08 CURRICULUM COORDINATOR 02/15 CPT-73142 Immunization Single Admin 15:03:08 CURRICULUM COORDINATOR 2014 CPT-OV Office Visit 15:58:06 CDT CPT-J0897 Prolia 60 mg 08:45:38 CDT CPT-18797 Abx/Therapy Injection 08:45:38 CDT CPT-J3420 Vitamin B12 1000mcg (Cyanocobalamin) 09:26:20 CURRICULUM COORDINATOR CPT-44511 Abx/Therapy Injection 09:26:20 CURRICULUM COORDINATOR CPT-J3420 Vitamin B12 1000mcg (Cyanocobalamin) 09:44:40 CURRICULUM COORDINATOR CPT-77952 Abx/Therapy Injection 09:44:40 CURRICULUM COORDINATOR CPT-J3420 Vitamin B12 1000mcg (Cyanocobalamin) 09:15:54 CURRICULUM COORDINATOR CPT-01347 Abx/Therapy Injection 09:15:54 CURRICULUM COORDINATOR CPT-J3420 Vitamin B12 1000mcg (Cyanocobalamin) 09:46:44 CURRICULUM COORDINATOR CPT-96693 Abx/Therapy Injection 09:46:44 CURRICULUM COORDINATOR CPT-J3420 Vitamin B12 1000mcg (Cyanocobalamin) 09:47:34 CURRICULUM COORDINATOR CPT-95943 Abx/Therapy Injection 09:47:34 CURRICULUM COORDINATOR CPT-J3420 Vitamin B12 1000mcg (Cyanocobalamin) 14:35:50 CURRICULUM COORDINATOR CPT-J3420 Vitamin B12 1000mcg (Cyanocobalamin) 09:25:05 CURRICULUM COORDINATOR CPT-69376 Abx/Therapy Injection 09:25:05 CURRICULUM COORDINATOR CPT-G0008 Administration of Influenza Virus Vaccine 13:36:47 CDT CPT-88354 Fluzone High-Dose Intramuscular Suspension 11/15 13:36:47 CDT CPT-J0897 Prolia 60 mg 08:50:41 CDT CPT-30013 Abx/Therapy Injection 08:50:41 CDT CPT-09425 Bone Density 12:06:12 CDT CPT-28164 Bone Density 08:54:40 CDT CPT-OV Office Visit 15:37:02 CDT CPT-39627 Postop F/U Visit 15:47:49 CDT CPT-19434 Postop F/U Visit 15:21:02 CDT CPT-TCM[facility] Transitional Care Mgmt-High 07:52:27 CDT 20 20/06/01 CPT-15018 Venipuncture Draw Fee 13:51:18 CDT CPT-40555 Venipuncture Draw Fee 10:14:55 CURRICULUM COORDINATOR CPT-30399 Venipuncture Draw Fee 13:39:45 CURRICULUM COORDINATOR CPT-OV Office Visit 15:11:22 CURRICULUM COORDINATOR CPT-77279 Venipuncture Draw Fee 09:20:49 CURRICULUM COORDINATOR CPT-52114 Venipuncture Draw Fee 16:52:15 CURRICULUM COORDINATOR CPT-83399 Venipuncture Draw Fee 10:37:24 CURRICULUM COORDINATOR CPT-45196 Venipuncture Draw Fee 08:21:21 CURRICULUM COORDINATOR CPT-63336 Venipuncture Draw Fee 08:30:20 CURRICULUM COORDINATOR CPT-51881 Venipuncture Draw Fee 14:53:21 CURRICULUM COORDINATOR CPT-64306 Venipuncture Draw Fee 09:40:56 CURRICULUM COORDINATOR CPT-70316 Venipuncture Draw Fee 10:30:47 CURRICULUM COORDINATOR CPT-03986 Venipuncture Draw Fee 10:46:17 CURRICULUM COORDINATOR CPT-62069 Venipuncture Draw Fee 11:12:45 CURRICULUM COORDINATOR CPT-66603 Venipuncture Draw Fee 09:53:33 CURRICULUM COORDINATOR CPT-69213 Venipuncture Draw Fee 11:53:51 CURRICULUM COORDINATOR CPT-86539 Venipuncture Draw Fee 10:33:50 CURRICULUM COORDINATOR CPT-66726 Venipuncture Draw Fee 10:05:01 CURRICULUM COORDINATOR CPT-33496 Venipuncture Draw Fee 14:32:52 CURRICULUM COORDINATOR CPT-79636 Venipuncture Draw Fee 09:46:13 CURRICULUM COORDINATOR CPT-51832 Venipuncture Draw Fee 11:34:27 CURRICULUM COORDINATOR CPT-74069 Venipuncture Draw Fee 13:17:16 CURRICULUM COORDINATOR CPT-49355 Venipuncture Draw Fee 12:05:39 CDT CPT-28727 Venipuncture Draw Fee 12:49:12 CDT CPT-55186 Venipuncture Draw Fee 12:37:18 CDT CPT-79284 Venipuncture Draw Fee 10:57:11 CDT CPT-50059 Venipuncture Draw Fee 13:47:40 CDT CPT-62130 Venipuncture Draw Fee 10:02:17 CDT CPT-30602 TB Tubersol 17:32:32 CDT CPT-OV Office Visit 16:21:53 CDT CPT-OV Office Visit 15:49:22 CDT CPT-OV Office Visit 17:16:31 CDT CPT-OV Office Visit 10:43:31 CDT
--- OUTSIDE RECORDS SUMMARY | 2019-02-09 12:47 | XMS REPORT | Clinical Summary ---
Author Author Renaldo, Florecita Munoz Organization [facility] Address Unknown Phone Unavailable Allergies, Adverse Reactions, [...] PhD Hyperpotassemia GERD 530.81 Resolved Kylie Yokum ACQUISITIONS LIBRARIAN Esophageal reflux Health maintenance exam V70.0 Resolved Adolfo Yates MD Routine general medical examination at a health care facility Anemia 285.9 Resolved Kylie Yanet ACQUISITIONS LIBRARIAN Anemia, unspecified Personal history of malignant neoplasm of large intestine V10.05 Active Adam Yates MD Personal history of malignant neoplasm of large intestine Hypomagnesemia 275.2 Resolved Kylie Yanet ACQUISITIONS LIBRARIAN Disorders of magnesium metabolism Weakness 780.79 Resolved [...] Sebaceous cyst, scalp 706.2 Resolved Kylie Yokum ACQUISITIONS LIBRARIAN Sebaceous cyst Cervical lymphadenopathy, anterior, left 785.6 Resolv ed Kylie Yokum ACQUISITIONS LIBRARIAN Enlargement of lymph nodes Need for prophylactic vaccination and inoculation against in fluenza V04.81 Resolved Adam Yates MD Need for prophylactic vaccination and inoculation against influenza Preventive health care V70.0 Active Kylie Yokum ACQUISITIONS LIBRARIAN Routine general medical examination at a health care facility Thyroid nodule, left 241.0 Active Kylie Yokum A PRN Nontoxic uninodular goiter Screening mammogram V76.12 Active Kylie Yogabbium AP RN Other screening mammogram Mandy 706.2 Resolved Kylie Yokum ACQUISITIONS LIBRARIAN Sebaceous cyst Colon cancer, ascending 153.6 Resolved Kylie Yok um ACQUISITIONS LIBRARIAN Malignant neoplasm of ascending colon Foot pain, left 729.5 Active Sulema 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 Pain in limb Splinter 919.6 Active Kylie Yokum ACQUISITIONS LIBRARIAN Superficial foreign body (splinter) of other, multiple, and unspecified sites, without major open wound and without mention of infection ABDOMINAL PAIN, RIGHT LOWER QUADRANT ICD-789.03 Inactive Kina Joshua ACQUISITIONS LIBRARIAN ADENOCARCINOMA, COLON, 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 Dick Yates MD ABDOMINAL PAIN, GENERALIZED ICD-789.07 Inactive Hope Benavidez MD PhD FEVER UNSPECIFIED ICD-780.60 Inactive Hope cohn MD PhD UNSPECIFIED VENOUS INSUFFICIENCY ICD-459.81 Elda ctive Adam Yates MD ADENOCARCINOMA, 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 Inac tive Hope Benavidez MD PhD Hyperkalemia ICD-276.7 Inactive Hope Benavidez MD PhD GERD ICD-530.81 Inactive Kylie Holt ACQUISITIONS LIBRARIAN 2015 Health maintenance exam ICD-V70.0 Inactive Adolfo Yates MD Anemia ICD-285.9 Inactive Kylie Holt ACQUISITIONS LIBRARIAN 07/24 Hypomagnesemia ICD-275.2 Inactive Kylie Holt ACQUISITIONS LIBRARIAN Weakness ICD-780.79 Inactive Hope Benavidez MD P hD Aftercare following surgery of the teeth,oral cavity a nd digestive system, NEC ICD-V58.75 Inactive Adam Yates MD Colon cancer ICD-153.9 Inactive Adam luna MD Asymptomatic postmenopausal status (age-related) (natural) I CD-V49.81 Inactive Hope Benavidez MD PhD Diarrhea, functional ICD-564.5 Inactive Selena Yates MD Dysuria ICD-788.1 Inactive Hoep Benavidez MD PhD 201 05/19/01 Adenocarcinoma, ascending colon ICD-153.6 Inac abdelrahman Yates MD Sebaceous cyst, scalp ICD-706.2 Inactive Tracy Holt ACQUISITIONS LIBRARIAN Cervical lymphadenopathy, anterior, left ICD-785.6 Inactive Kylie Holt ACQUISITIONS LIBRARIAN Need for prophylactic vaccination and inoculation against in fluenza ICD-V04.81 Inactive Adam Yates MD Mandy ICD-706.2 Inactive Kylie Holt ACQUISITIONS LIBRARIAN 07/20 Colon cancer, ascending ICD-153.6 Inactive Gabbi Holt ACQUISITIONS LIBRARIAN Medication List Medication Instructions Start Date Stop Date Generic Name NDC Status Provider Patient Instruction COQ10 100 MG ORAL CAPS 1 daily COENZYME Q10 621842484 20 Active LETY Nation Active VITAMIN D3 2000 UNIT ORAL CAPS Melaleuca-One daily CHOLECALCIFEROL 79040773011 Active Kylie Holt APRN Active PROBIOTIC DAILY ORAL CAPS Take one daily PROBIOTIC PRODUCT 40854018213 Active Kylie Holt APRN Active IRON 325 (65 FE) MG TABS 1 every other day FERR OUS SULFATE 71415546426 No Longer Active Kylie Holt APRN Active FLORANEX PACK 1 pack three times daily, for bowel health LACTOBACILLUS 41019746180 No Longer Active Kylie Holt APRN Active LOMOTIL 2.5-0.025 MG TABS 1 tab by mouth prn 4 DIPHENOXYLATE-ATROPINE 66602697595 No Longer Active Kylie Holt APRN Active MAGNESIUM GLUCONATE 250 MG TABS 1 tab tid 4 MAGNESIUM GLUCONATE 21415204170 No Longer Active Kylie Holt APRN Active CYANOCOBALAMIN 1000 MCG/ML INJ SOLN 1 injection every 2 weeks 20 20/01/03 CYANOCOBALAMIN 35723319642 No Longer Active Kylie Holt APRN Active ATENOLOL 25 MG ORAL TABS 1/2 pill by mouth daily, for headac hes, blood pressure ATENOLOL 61382726278 Active Kylieshubham Holt APRN Active PROPRANOLOL HCL 80 MG TABS 1 tab tue. and thur. 04/10 PROPRANOLOL HCL 72262474835 No Longer Active Hope Benavidez MD PhD A ctive VITAMIN D3 4000 IU 1 tab 3 times daily VITAMIN D3 4000 IU No Longer Active Hope Benavidez MD PhD Active BACTRIM DS 800-160 MG TABS 1 pill by mouth twice daily, for UTI SULFAMETHOXAZOLE-TRIMETHOPRIM 77407108281 No Longer Active A attila Benavidez MD PhD Active PROLIA 60 MG/ML SOLN 1 shot every 6 months for osteoprosis DENOSUMAB 76058428754 Active Hope Benavidez MD PhD Active CALCIUM + D + K 750-500-40 MG-UNT-MCG TABS 1 tab by mouth tw ice daily CALCIUM-VITAMIN D-VITAMIN K 34579379440 Active Hope landers MD PhD Active DAILY VALUE MULTIVITAMIN TABS 1 tab by mouth twice daily MULTIPLE VITAMIN 09954615946 Active Hope Benavidez MD PhD Active FISH OIL 306 MG CAPS 1 tab by mouth three times daily OMEGA-3 FATTY ACIDS 65294021321 Active Hope Benavidez MD PhD Active LUTEIN 10 MG TABS 1 tab daily LUTEIN 00534820650 Act cash Hope Benavidez MD PhD Active TRIAMTERENE-HCTZ 37.5-25 MG TABS 1 tab by mouth daily TRIAMTERENE-HCTZ 28247667355 Active Kylie Holt APRN Active CYCLOBENZAPRINE HCL 10 MG TABS 1 tablet by mouth three times daily as needed for headaches CYCLOBENZAPRINE HCL 00275770575 No Longe r Active Adam Yates MD Active OMEPRAZOLE 20 MG CPDR 1 tablet by mouth daily for GERD OMEPRAZOLE 08042352871 No Longer Active Adam Yates MD A ctive ZOFRAN 8 MG TABS 1 tab by mouth every 12 hours prn 201 05/16/09 ONDANSETRON HCL 82940248970 No Longer Active Adam Yates MD Active PHENADOZ 25 MG SUPP 1 every 4 hrs. PRN PROMETHA ZINE HCL 22569363433 No Longer Active Adam Yates MD Active POTASSIUM CHLORIDE 20 MEQ PACK by mouth twice a day prn POTASSIUM CHLORIDE 03869011544 No Longer Active Adam Yates MD Active PROMETHAZINE HCL 25 MG TABS 1 Q. 4 hr. PRN PROM ETHAZINE HCL 08033604990 No Longer Active Adam Yates MD Active INNOPRAN XL 120 MG [id number] Take one by mouth daily 2 PROPRANOLOL HCL SR BEADS 25423237582 No Longer Active Adam Yates MD A ctive FLAGYL 500 MG TABS 1 pill by mouth three times daily, for diarrh ea METRONIDAZOLE 19789349225 No Longer Active Hope Benavidez MD PhD Active DYAZIDE 37.5-25 MG CAPS 1 qd TRIAMTERENE-HC TZ 31922922582 No Longer Active Hoep Benavidez MD PhD Active PROZAC 20 MG CAPS 1 q d FLUOXETINE HCL 62561 426838 No Longer Active Hope Benavidez MD PhD Active SIMVASTATIN 40 MG TABS 1 qd SIMVASTATIN 004 96873859 No Longer Active Adam Yates MD Active MELOXICAM 15 MG TABS 1 qd MELOXICAM 8284866 4326 No Longer Active Adam Yates MD Active IMODIUM A-D 2 MG TABS 2 onset at diarrhea and prn. LOPERAMIDE HCL 46060132066 Active Hope Benavidez MD PhD Active EXCEDRIN EXTRA STRENGTH 250-250-65 MG TABS 1-2 q6h PRN headache 201 04/16/21 [id number] 29636014446 Active Hope Benavidez MD PhD Active FLAGYL 500 MG TABS 1 qid METRONIDAZOLE 74374 189984 No Longer Active Adam Yates MD Active LEVAQUIN 750 MG TABS 1 qd LEVOFLOXACIN 5486 6419917 No Longer Active Adam Yates MD Active ADULT ASPIRIN LOW STRENGTH 81 MG TBDP 1 qd A SPIRIN 06240392654 Active Hope Benavidez MD PhD Active LEVAQUIN 750 MG TABS 1 qd LEVAQUIN 750 MG T ABS 205090 LEVOFLOXACIN Inactive FLAGYL 500 MG TABS 1 qid FLAGYL 500 MG TABS 434316 METRONIDAZOLE Inactive MELOXICAM 15 MG TABS 1 qd MELOXICAM 15 MG T ABS 905224 MELOXICAM Inactive SIMVASTATIN 40 MG TABS 1 qd SIMVASTATIN 40 MG TABS 910868 SIMVASTATIN Inactive PROZAC 20 MG CAPS 1 q d PROZAC 20 MG CAPS 31 0385 FLUOXETINE HCL Inactive DYAZIDE 37.5-25 MG CAPS 1 qd DYAZIDE 37.5 -25 MG CAPS 585746 TRIAMTERENE-HCTZ Inactive INNOPRAN XL 120 MG [id number] Take one by mouth daily 2 INNOPRAN XL 120 MG [id number] PROPRANOLOL HCL SR BEADS Inactive PROMETHAZINE HCL 25 MG TABS 1 Q. 4 hr. PRN PROMETHAZINE HCL 25 MG TABS 229726 PROMETHAZINE HCL Inactive POTASSIUM CHLORIDE 20 MEQ PACK by mouth twice a day prn POTASSIUM CHLORIDE 20 MEQ PACK 0150461 POTASSIUM CHLORIDE Inactive PHENADOZ 25 MG SUPP 1 every 4 hrs. PRN PHENADOZ 2 5 MG SUPP 342373 PROMETHAZINE HCL Inactive ZOFRAN 8 MG TABS 1 tab by mouth every 12 hours prn 201 05/16/09 ZOFRAN 8 MG TABS 815178 ONDANSETRON HCL Inactive OMEPRAZOLE 20 MG CPDR 1 tablet by mouth daily for GERD OMEPRAZOLE 20 MG CPDR 504017 OMEPRAZOLE Inactive CYCLOBENZAPRINE HCL 10 MG TABS 1 tablet by mouth three times daily as needed for headaches CYCLOBENZAPRINE HCL 10 MG TABS 250490 CYCLOBENZAPRINE HCL Inactive VITAMIN D3 4000 IU 1 tab 3 times daily VITAMIN D3 4000 IU Inactive PROPRANOLOL HCL 80 MG TABS 1 tab tue. and thur. 04/10 PROPRANOLOL HCL 80 MG TABS 845734 PROPRANOLOL HCL Inactive CYANOCOBALAMIN 1000 MCG/ML INJ SOLN 1 injection every 2 weeks 20 20/01/03 CYANOCOBALAMIN 1000 MCG/ML INJ SOLN 132841 CYANOCOBALAM IN Inactive MAGNESIUM GLUCONATE 250 MG TABS 1 tab tid 4 MAGNESIUM GLUCONATE 250 MG TABS 740741 MAGNESIUM GLUCONATE Inactive LOMOTIL 2.5-0.025 MG TABS 1 tab by mouth prn 4 LOMOTIL 2.5- 0.025 MG TABS 1030998 DIPHENOXYLATE-ATROPINE Inactive FLORANEX PACK 1 pack three times daily, for bowel health FLORANEX PACK LACTOBACILLUS Inactive IRON 325 (65 FE) MG TABS 1 every other day IRON 325 (65 FE) MG TABS 955783 FERROUS SULFATE Inactive FLAGYL 500 MG TABS 1 pill by mouth three times daily, for diarrh ea FLAGYL 500 MG TABS 497692 METRONIDAZOLE Inactive BACTRIM DS 800-160 MG TABS 1 pill by mouth twice daily, for UTI BACTRIM DS 800-160 MG TABS 960188 SULFAMETHOXAZOLE-TRIM ETHOPRIM Inactive Advance Directives Directive Description [...] 11 .0-15.0 platelet count 157 THOUSAND/UL 10*3/mm3 805-111 6500/04/20 mean platelet volume 8.9 fL 7.5-12.5 Lab Report: CBC W/DIFF, Comp. Metabolic Panel, Thyroid Stimulating Hormo ... - Chemistry sodium, serum 139 mmol/L 496-369 0829/10/20 carbon dioxide, venous blood 32.2 mmol/L 21.0-32 [...] - Chemi stry cholesterol, serum 200 mg/dL 490-048 2583/11/22 triglyceride, serum, fasting 129 mg/dL 30-200 HDL cholesterol, serum 56 mg/dL 32-96 LDL cholesterol, serum 118 mg/dL 0-130 calcium, serum 9.0 mg/dL 8.5-10.1 Lab Report: MicroAlb Random w/creat/6517 - Urinalysis microalbumin/total urine volume 8 mg/L Units converted. See lab report for original value. microalbumin/creatinine ratio, urine 15 MCG/MG CREAT mg/L <30 Encounters Code Encounter Date Provider Facility CPT-41191 Level 3 Est. Patient 17:54:48 CDT Kylie boyd [facility] [place] CPT-59933 Level 3 Est. Patient 16:26:30 CDT Kina blackmon [facility] CPT-60041 Level 3 New Patient 16:22:01 MEDICAL INSURANCE CLERK Adam Yates MD [facility] CPT-64421 Level 4 Est. Patient 17:00:48 CDT Kylie Lund [facility] [place] CPT-00311 Level 3 Est. Patient 13:15:54 CDT Kylie Lund [facility] CPT-16209 Level 3 Est. Patient 09:10:11 CDT Kylie Kevon [facility] CPT-21401 Level 4 Est. Patient 12:08:30 MEDICAL INSURANCE CLERK Hope cohn MD [facility] CPT-89294 Level 4 Est. Patient 19:08:42 MEDICAL INSURANCE CLERK Hope cohn MD [facility] CPT-35023 Level 4 Est. Patient 20:04:51 CDT Hope cohn MD [facility] CPT-05651 Level 3 New Patient 01:46:11 MEDICAL INSURANCE CLERK Hope landers MD [facility] Procedures Code Procedure Name Date Entry Date Standard Desc ription CPT-G0439 [facility] Annual Wellness Exam 17:54:53 CDT CPT-64395 Foot, left, comp min 3V - XRAY USE ONLY 12:22:49 CDT CPT-G0009 Administration of Pneumococcal Vaccine 3 12:18:00 CDT CPT-96815 Pneumovax 23 Injection Injectable 25 MCG /0.5ML 12:18:00 CDT CPT-J0897 Prolia 60 mg 14:14:16 MEDICAL INSURANCE CLERK CPT-40746 Abx/Therapy Injection 14:14:15 MEDICAL INSURANCE CLERK CPT-10612 Lipid - LAB USE ONLY 10:01:52 MEDICAL INSURANCE CLERK 2 CPT-75429 Calcium - LAB USE ONLY 10:01:51 MEDICAL INSURANCE CLERK CPT-96747 Venipuncture Draw Fee 10:01:51 MEDICAL INSURANCE CLERK CPT-LR Lesion Removal 16:22:01 MEDICAL INSURANCE CLERK CPT-97260 TSH - LAB USE ONLY 14:26:02 CDT CPT-35869 CMP - LAB USE ONLY 14:26:01 CDT CPT-60426 CBC with Diff - LAB USE ONLY 14:26:01 CDT 2 CPT-36529 Venipuncture Draw Fee 14:26:01 CDT CPT-65732 First Vx - Ix admin for Medicare patients 13:27:08 CDT CPT-04938 Fluzone High-Dose Intramuscular Suspension 11/26 13:27:08 CDT CPT-G0438 Initial Annual Wellness Exam 14:19:57 CD T CPT-G0009 Administration of Pneumococcal Vaccine 9 11:36:25 CDT CPT-48843 Prevnar 13 Intramuscular Suspension 1 1:36:25 CDT CPT-36969 Prevnar 13 Intramuscular Suspension 1 0:40:58 CDT CPT-J0897 Prolia 60 mg 10:37:16 CDT CPT-27296 Abx/Therapy Injection 10:37:16 CDT CPT-J0897 Prolia 60 mg 16:09:34 MEDICAL INSURANCE CLERK CPT-J0897 Prolia 60 mg 11:10:35 MEDICAL INSURANCE CLERK CPT-43736 Abx/Therapy Injection 11:10:35 MEDICAL INSURANCE CLERK CPT-000 Give Appropriate Flu Vaccine 17:01:15 MEDICAL INSURANCE CLERK 2 CPT-73513 Fluzone High Dose (65+) 15:03:08 MEDICAL INSURANCE CLERK 02/15 CPT-92191 Immunization Single Admin 15:03:08 MEDICAL INSURANCE CLERK 2014 CPT-OV Office Visit 15:58:06 CDT CPT-J0897 Prolia 60 mg 08:45:38 CDT CPT-63166 Abx/Therapy Injection 08:45:38 CDT CPT-J3420 Vitamin B12 1000mcg (Cyanocobalamin) 09:26:20 MEDICAL INSURANCE CLERK CPT-06124 Abx/Therapy Injection 09:26:20 MEDICAL INSURANCE CLERK CPT-J3420 Vitamin B12 1000mcg (Cyanocobalamin) 09:44:40 MEDICAL INSURANCE CLERK CPT-15436 Abx/Therapy Injection 09:44:40 MEDICAL INSURANCE CLERK CPT-J3420 Vitamin B12 1000mcg (Cyanocobalamin) 09:15:54 MEDICAL INSURANCE CLERK CPT-77208 Abx/Therapy Injection 09:15:54 MEDICAL INSURANCE CLERK CPT-J3420 Vitamin B12 1000mcg (Cyanocobalamin) 09:46:44 MEDICAL INSURANCE CLERK CPT-95547 Abx/Therapy Injection 09:46:44 MEDICAL INSURANCE CLERK CPT-J3420 Vitamin B12 1000mcg (Cyanocobalamin) 09:47:34 MEDICAL INSURANCE CLERK CPT-33037 Abx/Therapy Injection 09:47:34 MEDICAL INSURANCE CLERK CPT-J3420 Vitamin B12 1000mcg (Cyanocobalamin) 14:35:50 MEDICAL INSURANCE CLERK CPT-J3420 Vitamin B12 1000mcg (Cyanocobalamin) 09:25:05 MEDICAL INSURANCE CLERK CPT-90603 Abx/Therapy Injection 09:25:05 MEDICAL INSURANCE CLERK CPT-G0008 Administration of Influenza Virus Vaccine 13:36:47 CDT CPT-32820 Fluzone High-Dose Intramuscular Suspension 11/15 13:36:47 CDT CPT-J0897 Prolia 60 mg 08:50:41 CDT CPT-22019 Abx/Therapy Injection 08:50:41 CDT CPT-77845 Bone Density 12:06:12 CDT CPT-15931 Bone Density 08:54:40 CDT CPT-OV Office Visit 15:37:02 CDT CPT-49888 Postop F/U Visit 15:47:49 CDT CPT-23052 Postop F/U Visit 15:21:02 CDT CPT-[facility] Transitional Care Mgmt-High 07:52:27 CDT 20 20/06/01 CPT-53304 Venipuncture Draw Fee 13:51:18 CDT CPT-09967 Venipuncture Draw Fee 10:14:55 MEDICAL INSURANCE CLERK CPT-38403 Venipuncture Draw Fee 13:39:45 MEDICAL INSURANCE CLERK CPT-OV Office Visit 15:11:22 MEDICAL INSURANCE CLERK CPT-35412 Venipuncture Draw Fee 09:20:49 MEDICAL INSURANCE CLERK CPT-97541 Venipuncture Draw Fee 16:52:15 MEDICAL INSURANCE CLERK CPT-43766 Venipuncture Draw Fee 10:37:24 MEDICAL INSURANCE CLERK CPT-17205 Venipuncture Draw Fee 08:21:21 MEDICAL INSURANCE CLERK CPT-62820 Venipuncture Draw Fee 08:30:20 MEDICAL INSURANCE CLERK CPT-03678 Venipuncture Draw Fee 14:53:21 MEDICAL INSURANCE CLERK CPT-45145 Venipuncture Draw Fee 09:40:56 MEDICAL INSURANCE CLERK CPT-96281 Venipuncture Draw Fee 10:30:47 MEDICAL INSURANCE CLERK CPT-82000 Venipuncture Draw Fee 10:46:17 MEDICAL INSURANCE CLERK CPT-56774 Venipuncture Draw Fee 11:12:45 MEDICAL INSURANCE CLERK CPT-90923 Venipuncture Draw Fee 09:53:33 MEDICAL INSURANCE CLERK CPT-56355 Venipuncture Draw Fee 11:53:51 MEDICAL INSURANCE CLERK CPT-91955 Venipuncture Draw Fee 10:33:50 MEDICAL INSURANCE CLERK CPT-31796 Venipuncture Draw Fee 10:05:01 MEDICAL INSURANCE CLERK CPT-70539 Venipuncture Draw Fee 14:32:52 MEDICAL INSURANCE CLERK CPT-49078 Venipuncture Draw Fee 09:46:13 MEDICAL INSURANCE CLERK CPT-53844 Venipuncture Draw Fee 11:34:27 MEDICAL INSURANCE CLERK CPT-74883 Venipuncture Draw Fee 13:17:16 MEDICAL INSURANCE CLERK CPT-08368 Venipuncture Draw Fee 12:05:39 CDT CPT-56808 Venipuncture Draw Fee 12:49:12 CDT CPT-89627 Venipuncture Draw Fee 12:37:18 CDT CPT-48251 Venipuncture Draw Fee 10:57:11 CDT CPT-33695 Venipuncture Draw Fee 13:47:40 CDT CPT-11018 Venipuncture Draw Fee 10:02:17 CDT CPT-99660 TB Tubersol 17:32:32 CDT CPT-OV Office Visit 16:21:53 CDT CPT-OV Office Visit 15:49:22 CDT CPT-OV Office Visit 17:16:31 CDT CPT-OV Office Visit 10:43:31 CDT
--- OUTSIDE RECORDS SUMMARY | 2019-02-09 12:48 | XMS REPORT | Clinical Summary ---
Author Author Renaldo, Florecita Munoz Organization [facility] Address Unknown Phone Unavailable Allergies, Adverse Reactions, [...] PhD Hyperpotassemia GERD 530.81 Resolved Kylie Yokum LITERACY SPECIALIST Esophageal reflux Health maintenance exam V70.0 Resolved Adolfo Yates MD Routine general medical examination at a health care facility Anemia 285.9 Resolved Kylie Holt LITERACY SPECIALIST Anemia, unspecified Personal history of malignant [...] Sebaceous cyst, scalp 706.2 Resolved Kylie Holt LITERACY SPECIALIST Sebaceous cyst Cervical lymphadenopathy, anterior, left 785.6 Resolv ed Kylie Holt LITERACY SPECIALIST Enlargement of lymph nodes Need for prophylactic vaccination and inoculation against in fluenza V04.81 Resolved Adam Yates MD Need for prophylactic vaccination and inoculation against influenza Preventive health care V70.0 Active Kylie Holt LITERACY SPECIALIST Routine general medical examination at a health care facility Thyroid nodule, left 241.0 Active Kylie Gonzalez PRN Nontoxic uninodular goiter Screening mammogram V76.12 Active Kylie Holt AP RN Other screening mammogram Mandy 706.2 Active Adam Yates MD Sebaceous cyst Colon cancer, ascending 153.6 Active Kelsy F aux RMA Malignant neoplasm of ascending colon ABDOMINAL PAIN, RIGHT LOWER QUADRANT ICD-789.03 Inactive Kina Joshua LITERACY SPECIALIST ADENOCARCINOMA, COLON, 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 Dick Yates MD ABDOMINAL PAIN, GENERALIZED ICD-789.07 Inactive Hope Benavidez MD PhD FEVER UNSPECIFIED ICD-780.60 Inactive Hope cohn MD PhD UNSPECIFIED VENOUS INSUFFICIENCY ICD-459.81 [place] ctive Adam Yates MD ADENOCARCINOMA, 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 Inac abdelrahman Benavidez MD PhD Hyperkalemia ICD-276.7 Inactive Hope Benavidez MD PhD GERD ICD-530.81 Inactive Kylie Holt LITERACY SPECIALIST 2015 Health maintenance exam ICD-V70.0 Inactive Adolfo Yates MD Anemia ICD-285.9 Inactive Kylie Holt LITERACY SPECIALIST 07/24 Weakness ICD-780.79 Inactive Hope Benavidez MD [...] Sebaceous cyst, scalp ICD-706.2 Inactive Tracy Holt LITERACY SPECIALIST Cervical lymphadenopathy, anterior, left ICD-785.6 Inactive Kylie Holt LITERACY SPECIALIST Need for prophylactic vaccination and inoculation against in fluenza ICD-V04.81 Bam Yates MD Medication List Medication Instructions Start Date Stop Date Generic Name NDC Status Provider Patient Instruction COQ10 100 MG ORAL CAPS 1 daily COENZYME Q10 [id number] 20 Active DennistonLETY Haley Active VITAMIN D3 2000 UNIT ORAL CAPS Melaleuca-One daily CHOLECALCIFEROL 42916732966 Active Kylie Holt LITERACY SPECIALIST Active PROBIOTIC DAILY ORAL CAPS Take one daily PROBIOTIC PRODUCT 54404389800 Active Kylie Lundum LITERACY SPECIALIST Active IRON 325 (65 FE) MG TABS 1 every other day FERR OUS SULFATE 17344736348 No Longer Active Kylie Lundum LITERACY SPECIALIST Active FLORANEX PACK 1 pack three times daily, for bowel health LACTOBACILLUS 96209076084 No Longer Active Kylie Holt LITERACY SPECIALIST Active LOMOTIL 2.5-0.025 MG TABS 1 tab by mouth prn 4 DIPHENOXYLATE-ATROPINE 44717900902 No Longer Active Kylie Lundum LITERACY SPECIALIST Active MAGNESIUM GLUCONATE 250 MG TABS 1 tab tid 4 MAGNESIUM GLUCONATE 58972741696 No Longer Active Kylie Lundum LITERACY SPECIALIST Active CYANOCOBALAMIN 1000 MCG/ML INJ SOLN 1 injection every 2 weeks 20 20/01/03 CYANOCOBALAMIN 29880503003 No Longer Active Kylie Lundum LITERACY SPECIALIST Active ATENOLOL 25 MG ORAL TABS 1/2 pill by mouth daily, for headac hes, blood pressure ATENOLOL 47062960559 Active Kylie Lundum LITERACY SPECIALIST Active PROPRANOLOL HCL 80 MG TABS 1 tab tue. and thur. 04/10 PROPRANOLOL HCL 28015288003 No Longer Active Hope Benavidez MD PhD A ctive VITAMIN D3 4000 IU 1 tab 3 times daily VITAMIN D3 4000 IU No Longer Active Hope Benavidez MD PhD Active BACTRIM DS 800-160 MG TABS 1 pill by mouth twice daily, for UTI SULFAMETHOXAZOLE-TRIMETHOPRIM 80914648030 No Longer Active A attila Benavidez MD PhD Active PROLIA 60 MG/ML SOLN 1 shot every 6 months for osteoprosis DENOSUMAB 89750364685 Active Hope Benavidez MD PhD Active CALCIUM + D + K 750-500-40 MG-UNT-MCG TABS 1 tab by mouth tw ice daily CALCIUM-VITAMIN D-VITAMIN K 94809344835 Active Hope landers MD PhD Active DAILY VALUE MULTIVITAMIN TABS 1 tab by mouth twice daily MULTIPLE VITAMIN 97638208005 Active Hope Benavidez MD PhD Active FISH OIL 306 MG CAPS 1 tab by mouth three times daily OMEGA-3 FATTY ACIDS 17662913827 Active Hope Benavidez MD PhD Active LUTEIN 10 MG TABS 1 tab daily LUTEIN 81750223884 Act cash Hope Benavidez MD PhD Active TRIAMTERENE-HCTZ 37.5-25 MG TABS 1 tab by mouth daily TRIAMTERENE-HCTZ 37273634279 Active Kylie Holt LITERACY SPECIALIST Active CYCLOBENZAPRINE HCL 10 MG TABS 1 tablet by mouth three times daily as needed for headaches CYCLOBENZAPRINE HCL 02694698783 No Longe r Active Adam Yates MD Active OMEPRAZOLE 20 MG CPDR 1 tablet by mouth daily for GERD OMEPRAZOLE 77751995003 No Longer Active Adam Yates MD A ctive ZOFRAN 8 MG TABS 1 tab by mouth every 12 hours prn 201 05/16/09 ONDANSETRON HCL 87196750966 No Longer Active Adam Yates MD Active PHENADOZ 25 MG SUPP 1 every 4 hrs. PRN PROMETHA ZINE HCL 35676375586 No Longer Active Adam Yates MD Active POTASSIUM CHLORIDE 20 MEQ PACK by mouth twice a day prn POTASSIUM CHLORIDE 05622492503 No Longer Active Adam Yates MD Active PROMETHAZINE HCL 25 MG TABS 1 Q. 4 hr. PRN PROM ETHAZINE HCL 54414394813 No Longer Active Adam Yates MD Active INNOPRAN XL 120 MG [id number] Take one by mouth daily 2 PROPRANOLOL HCL SR BEADS 91938344865 No Longer Active Adam Yates MD A ctive FLAGYL 500 MG TABS 1 pill by mouth three times daily, for diarrh ea METRONIDAZOLE 14190718455 No Longer Active Hope Benavidez MD PhD Active DYAZIDE 37.5-25 MG CAPS 1 qd TRIAMTERENE-HC TZ 24804220564 No Longer Active Hpoe Benavidez MD PhD Active PROZAC 20 MG CAPS 1 q d FLUOXETINE HCL 46806 158683 No Longer Active Hope Benavidez MD PhD Active SIMVASTATIN 40 MG TABS 1 qd SIMVASTATIN 004 96921462 No Longer Active Adam Yates MD Active MELOXICAM 15 MG TABS 1 qd MELOXICAM 6952177 9885 No Longer Active Adam Yates MD Active IMODIUM A-D 2 MG TABS 2 onset at diarrhea and prn. LOPERAMIDE HCL 50039856417 Active Hope Benaviedz MD PhD Active EXCEDRIN EXTRA STRENGTH 250-250-65 MG TABS 1-2 q6h PRN headache 201 04/16/21 [id number] 02998663787 Active Hope Benavidez MD PhD Active FLAGYL 500 MG TABS 1 qid METRONIDAZOLE 72442 996586 No Longer Active Adam Yates MD Active LEVAQUIN 750 MG TABS 1 qd LEVOFLOXACIN 5486 2894903 No Longer Active Adam Yates MD Active ADULT ASPIRIN LOW STRENGTH 81 MG TBDP 1 qd A SPIRIN 21159074234 Active Hope Benavidez MD PhD Active LEVAQUIN 750 MG TABS 1 qd LEVAQUIN 750 MG T ABS 651187 LEVOFLOXACIN Inactive FLAGYL 500 MG TABS 1 qid FLAGYL 500 MG TABS 632404 METRONIDAZOLE Inactive MELOXICAM 15 MG TABS 1 qd MELOXICAM 15 MG T ABS 022875 MELOXICAM Inactive SIMVASTATIN 40 MG TABS 1 qd SIMVASTATIN 40 MG TABS 636301 SIMVASTATIN Inactive PROZAC 20 MG CAPS 1 q d PROZAC 20 MG CAPS 31 0385 FLUOXETINE HCL Inactive DYAZIDE 37.5-25 MG CAPS 1 qd DYAZIDE 37.5 -25 MG CAPS 671151 TRIAMTERENE-HCTZ Inactive INNOPRAN XL 120 MG [id number] Take one by mouth daily 2 INNOPRAN XL 120 MG [id number] PROPRANOLOL HCL SR BEADS Inactive PROMETHAZINE HCL 25 MG TABS 1 Q. 4 hr. PRN PROMETHAZINE HCL 25 MG TABS 772913 PROMETHAZINE HCL Inactive POTASSIUM CHLORIDE 20 MEQ PACK by mouth twice a day prn POTASSIUM CHLORIDE 20 MEQ PACK 2735691 POTASSIUM CHLORIDE Inactive PHENADOZ 25 MG SUPP 1 every 4 hrs. PRN PHENADOZ 2 5 MG SUPP 231058 PROMETHAZINE HCL Inactive ZOFRAN 8 MG TABS 1 tab by mouth every 12 hours prn 201 05/16/09 ZOFRAN 8 MG TABS 614314 ONDANSETRON HCL Inactive OMEPRAZOLE 20 MG CPDR 1 tablet by mouth daily for GERD OMEPRAZOLE 20 MG CPDR 246623 OMEPRAZOLE Inactive CYCLOBENZAPRINE HCL 10 MG TABS 1 tablet by mouth three times daily as needed for headaches CYCLOBENZAPRINE HCL 10 MG TABS 525517 CYCLOBENZAPRINE HCL Inactive VITAMIN D3 4000 IU 1 tab 3 times daily VITAMIN D3 4000 IU Inactive PROPRANOLOL HCL 80 MG TABS 1 tab tue. and thur. 04/10 PROPRANOLOL HCL 80 MG TABS 381480 PROPRANOLOL HCL Inactive CYANOCOBALAMIN 1000 MCG/ML INJ SOLN 1 injection every 2 weeks 20 20/01/03 CYANOCOBALAMIN 1000 MCG/ML INJ SOLN 410982 CYANOCOBALAM IN Inactive MAGNESIUM GLUCONATE 250 MG TABS 1 tab tid 4 MAGNESIUM GLUCONATE 250 MG TABS 663974 MAGNESIUM GLUCONATE Inactive LOMOTIL 2.5-0.025 MG TABS 1 tab by mouth prn 4 LOMOTIL 2.5- 0.025 MG TABS 8972324 DIPHENOXYLATE-ATROPINE Inactive FLORANEX PACK 1 pack three times daily, for bowel health FLORANEX PACK LACTOBACILLUS Inactive IRON 325 (65 FE) MG TABS 1 every other day IRON 325 (65 FE) MG TABS 510800 FERROUS SULFATE Inactive FLAGYL 500 MG TABS 1 pill by mouth three times daily, for diarrh ea FLAGYL 500 MG TABS 408364 METRONIDAZOLE Inactive BACTRIM DS 800-160 MG TABS 1 pill by mouth twice daily, for UTI BACTRIM DS 800-160 MG TABS 866607 SULFAMETHOXAZOLE-TRIM ETHOPRIM Inactive Advance Directives Directive Description [...] 11 .0-15.0 platelet count 157 THOUSAND/UL 10*3/mm3 078-326 0842/04/20 mean platelet volume 8.9 fL 7.5-12.5 Lab Report: CBC W/DIFF, Comp. Metabolic Panel, Thyroid Stimulating Hormo ... - Chemistry sodium, serum 139 mmol/L 097-327 6238/10/20 carbon dioxide, venous blood 32.2 mmol/L 21.0-32 [...] - Chemi stry cholesterol, serum 200 mg/dL 566-385 1975/11/22 triglyceride, serum, fasting 129 mg/dL 30-200 HDL cholesterol, serum 56 mg/dL 32-96 LDL cholesterol, serum 118 mg/dL 0-130 calcium, serum 9.0 mg/dL 8.5-10.1 Lab Report: MicroAlb Random w/creat/6517 - Urinalysis microalbumin/total urine volume 8 mg/L Units converted. See lab report for original value. microalbumin/creatinine ratio, urine 15 MCG/MG CREAT mg/L <30 Encounters Code Encounter Date Provider Facility CPT-10748 Level 3 Est. Patient 16:26:30 CDT Kina blackmon APRN [facility] CPT-48128 Level 3 New Patient 16:22:01 LABOR RELATIONS TEACHER [facility] CPT-84521 Level 4 Est. Patient 17:00:48 CDT Kylie Lund [facility] CPT-74741 Level 3 Est. Patient 13:15:54 CDT Kylie Lund [facility] CPT-28722 Level 3 Est. Patient 09:10:11 CDT Kylie Lund [facility] CPT-52180 Level 4 Est. Patient 12:08:30 LABOR RELATIONS TEACHER Hope cohn MD [facility] CPT-71066 Level 4 Est. Patient 19:08:42 LABOR RELATIONS TEACHER Hope cohn MD [facility] CPT-13318 Level 4 Est. Patient 20:04:51 CDT Hope cohn MD [facility] CPT-61350 Level 3 New Patient 01:46:11 LABOR RELATIONS TEACHER Hope landers MD PhD [facility] Procedures Code Procedure Name Date Entry Date Standard Desc ription CPT-J0897 Prolia 60 mg 14:14:16 LABOR RELATIONS TEACHER CPT-72827 Abx/Therapy Injection 14:14:15 LABOR RELATIONS TEACHER CPT-68931 Lipid - LAB USE ONLY 10:01:52 LABOR RELATIONS TEACHER 2 CPT-28700 Calcium - LAB USE ONLY 10:01:51 LABOR RELATIONS TEACHER CPT-09792 Venipuncture Draw Fee 10:01:51 LABOR RELATIONS TEACHER CPT-LR Lesion Removal 16:22:01 LABOR RELATIONS TEACHER CPT-80404 TSH - LAB USE ONLY 14:26:02 CDT CPT-09960 CMP - LAB USE ONLY 14:26:01 CDT CPT-06480 CBC with Diff - LAB USE ONLY 14:26:01 CDT 2 CPT-99998 Venipuncture Draw Fee 14:26:01 CDT CPT-72080 First Vx - Ix admin for Medicare patients 13:27:08 CDT CPT-30250 Fluzone High-Dose Intramuscular Suspension 11/26 13:27:08 CDT CPT-G0438 Initial Annual Wellness Exam 14:19:57 CD T CPT-G0009 Administration of Pneumococcal Vaccine 9 11:36:25 CDT CPT-85753 Prevnar 13 Intramuscular Suspension 1 1:36:25 CDT CPT-26109 Prevnar 13 Intramuscular Suspension 1 0:40:58 CDT CPT-J0897 Prolia 60 mg 10:37:16 CDT CPT-96828 Abx/Therapy Injection 10:37:16 CDT CPT-J0897 Prolia 60 mg 16:09:34 LABOR RELATIONS TEACHER CPT-J0897 Prolia 60 mg 11:10:35 LABOR RELATIONS TEACHER CPT-70378 Abx/Therapy Injection 11:10:35 LABOR RELATIONS TEACHER CPT-000 Give Appropriate Flu Vaccine 17:01:15 LABOR RELATIONS TEACHER 2 CPT-23236 Fluzone High Dose (65+) 15:03:08 LABOR RELATIONS TEACHER 02/15 CPT-64726 Immunization Single Admin 15:03:08 LABOR RELATIONS TEACHER 2014 CPT-OV Office Visit 15:58:06 CDT CPT-J0897 Prolia 60 mg 08:45:38 CDT CPT-24383 Abx/Therapy Injection 08:45:38 CDT CPT-J3420 Vitamin B12 1000mcg (Cyanocobalamin) 09:26:20 LABOR RELATIONS TEACHER CPT-94584 Abx/Therapy Injection 09:26:20 LABOR RELATIONS TEACHER CPT-J3420 Vitamin B12 1000mcg (Cyanocobalamin) 09:44:40 LABOR RELATIONS TEACHER CPT-81996 Abx/Therapy Injection 09:44:40 LABOR RELATIONS TEACHER CPT-J3420 Vitamin B12 1000mcg (Cyanocobalamin) 09:15:54 LABOR RELATIONS TEACHER CPT-02051 Abx/Therapy Injection 09:15:54 LABOR RELATIONS TEACHER CPT-J3420 Vitamin B12 1000mcg (Cyanocobalamin) 09:46:44 LABOR RELATIONS TEACHER CPT-39854 Abx/Therapy Injection 09:46:44 LABOR RELATIONS TEACHER CPT-J3420 Vitamin B12 1000mcg (Cyanocobalamin) 09:47:34 LABOR RELATIONS TEACHER CPT-20127 Abx/Therapy Injection 09:47:34 LABOR RELATIONS TEACHER CPT-J3420 Vitamin B12 1000mcg (Cyanocobalamin) 14:35:50 LABOR RELATIONS TEACHER CPT-J3420 Vitamin B12 1000mcg (Cyanocobalamin) 09:25:05 LABOR RELATIONS TEACHER CPT-29007 Abx/Therapy Injection 09:25:05 LABOR RELATIONS TEACHER CPT-G0008 Administration of Influenza Virus Vaccine 13:36:47 CDT CPT-72783 Fluzone High-Dose Intramuscular Suspension 11/15 13:36:47 CDT CPT-J0897 Prolia 60 mg 08:50:41 CDT CPT-13259 Abx/Therapy Injection 08:50:41 CDT CPT-96771 Bone Density 12:06:12 CDT CPT-97339 Bone Density 08:54:40 CDT CPT-OV Office Visit 15:37:02 CDT CPT-00266 Postop F/U Visit 15:47:49 CDT CPT-28452 Postop F/U Visit 15:21:02 CDT CPT-TCMH Transitional Care Mgmt-High 07:52:27 CDT 20 20/06/01 CPT-78139 Venipuncture Draw Fee 13:51:18 CDT CPT-67731 Venipuncture Draw Fee 10:14:55 LABOR RELATIONS TEACHER CPT-10826 Venipuncture Draw Fee 13:39:45 LABOR RELATIONS TEACHER CPT-OV Office Visit 15:11:22 LABOR RELATIONS TEACHER CPT-59238 Venipuncture Draw Fee 09:20:49 LABOR RELATIONS TEACHER CPT-58273 Venipuncture Draw Fee 16:52:15 LABOR RELATIONS TEACHER CPT-00611 Venipuncture Draw Fee 10:37:24 LABOR RELATIONS TEACHER CPT-46325 Venipuncture Draw Fee 08:21:21 LABOR RELATIONS TEACHER CPT-63768 Venipuncture Draw Fee 08:30:20 LABOR RELATIONS TEACHER CPT-75029 Venipuncture Draw Fee 14:53:21 LABOR RELATIONS TEACHER CPT-74605 Venipuncture Draw Fee 09:40:56 LABOR RELATIONS TEACHER CPT-49670 Venipuncture Draw Fee 10:30:47 LABOR RELATIONS TEACHER CPT-59043 Venipuncture Draw Fee 10:46:17 LABOR RELATIONS TEACHER CPT-09813 Venipuncture Draw Fee 11:12:45 LABOR RELATIONS TEACHER CPT-34012 Venipuncture Draw Fee 09:53:33 LABOR RELATIONS TEACHER CPT-82968 Venipuncture Draw Fee 11:53:51 LABOR RELATIONS TEACHER CPT-80208 Venipuncture Draw Fee 10:33:50 LABOR RELATIONS TEACHER CPT-42298 Venipuncture Draw Fee 10:05:01 LABOR RELATIONS TEACHER CPT-82821 Venipuncture Draw Fee 14:32:52 LABOR RELATIONS TEACHER CPT-82204 Venipuncture Draw Fee 09:46:13 LABOR RELATIONS TEACHER CPT-31913 Venipuncture Draw Fee 11:34:27 LABOR RELATIONS TEACHER CPT-70895 Venipuncture Draw Fee 13:17:16 LABOR RELATIONS TEACHER CPT-31965 Venipuncture Draw Fee 12:05:39 CDT CPT-19248 Venipuncture Draw Fee 12:49:12 CDT CPT-78338 Venipuncture Draw Fee 12:37:18 CDT CPT-64474 Venipuncture Draw Fee 10:57:11 CDT CPT-68084 Venipuncture Draw Fee 13:47:40 CDT CPT-28790 Venipuncture Draw Fee 10:02:17 CDT CPT-59328 TB Tubersol 17:32:32 CDT CPT-OV Office Visit 16:21:53 CDT CPT-OV Office Visit 15:49:22 CDT CPT-OV Office Visit 17:16:31 CDT CPT-OV Office Visit 10:43:31 CDT
--- OUTSIDE RECORDS SUMMARY | 2019-02-09 12:48 | XMS REPORT | Clinical Summary ---
Author Author Renaldo, Florecita Munoz Organization [facility] [place] Address Unknown Phone Unavailable Allergies, Adverse Reactions, [...] PhD Hyperpotassemia GERD 530.81 Resolved Kylie Yokum [employer] WALL INSTALLATIONS MECHANIC Esophageal reflux Health maintenance exam V70.0 Resolved Adolfo Yates MD Routine general medical examination at a health care facility Anemia 285.9 Resolved Kylie Yanet [employer]ALL [employer]STALLATIONS MECHANIC Anemia, unspecified Personal history of malignant neoplasm of large intestine V10.05 Active Adam Yates MD Personal history of malignant neoplasm of large intestine Hypomagnesemia 275.2 Resolved Kylie Yanet [employer]STALLATIONS MECHANIC Disorders of magnesium metabolism Weakness 780.79 [...] Sebaceous cyst, scalp 706.2 Resolved Kylie Yokum [employer] WALL [employer]STALLATIONS MECHANIC Sebaceous cyst Cervical lymphadenopathy, anterior, left 785.6 Resolv ed Kylie Yokum [employer] WALL [employer]STALLATIONS MECHANIC Enlargement of lymph nodes Need for prophylactic vaccination and inoculation against in fluenza V04.81 Resolved Adam Yates MD Need for prophylactic vaccination and inoculation against influenza Preventive health care V70.0 Active Kylie Yokum [employer]ATIONS MECHANIC Routine general medical examination at a health care facility Thyroid nodule, left 241.0 Active Kylie Yokum A PRN Nontoxic uninodular goiter Screening mammogram V76.12 Active Kylie Yokum AP RN Other screening mammogram Mandy 706.2 Resolved Kylie Yokum [employer] MECHANIC Sebaceous cyst Colon cancer, ascending 153.6 Resolved Kylie Yok um [employer]STALLATIONS MECHANIC Malignant neoplasm of ascending colon Foot pain, left 729.5 Active Sulema Naff PSYCHOLOGY TECHNICIAN Pain in limb Splinter 919.6 Active Kylie Yokum [employer]ALL[employer] MECHANIC Superficial foreign body (splinter) of other, multiple, and unspecified sites, without major open wound and without mention of infection Rash 782.1 Active Kylie Yokum [employer]ALL [employer]STALLATIONS MECHANIC R aurora and other nonspecific skin eruption Cyst 706.2 Active Kylie Yokum [employer] WALL INSTALLATIONS MECHANIC S ebaceous cyst ABDOMINAL PAIN, RIGHT LOWER QUADRANT ICD-789.03 Inactive Kina Joshua [employer] WALL INSTALLATIONS MECHANIC ADENOCARCINOMA, COLON, 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 Dick Yates MD ABDOMINAL PAIN, GENERALIZED ICD-789.07 Inactive Hope Benavidez MD PhD FEVER UNSPECIFIED ICD-780.60 Inactive Hope cohn MD PhD UNSPECIFIED VENOUS INSUFFICIENCY ICD-459.81 [place] ctive Adam Yates MD ADENOCARCINOMA, 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 Inac tive Hope Benavidez MD PhD Hyperkalemia ICD-276.7 Inactive Hope Benavidez MD PhD GERD ICD-530.81 Inactive Kylieshubham Holt DRY WALL INSTALLATIONS MECHANIC 2015 Health maintenance exam ICD-V70.0 Bam Yates MD Anemia ICD-285.9 Inactive Kylieshubham Holt [employer]Y WALL INSTALLATIONS MECHANIC 07/24 Hypomagnesemia ICD-275.2 Inactive Kylie Holt DRY WALL INSTALLATIONS MECHANIC Weakness ICD-780.79 Inactive Hope Benavidez MD [...] Sebaceous cyst, scalp ICD-706.2 Inactive Tracy Holt DRY WALL INSTALLATIONS MECHANIC Cervical lymphadenopathy, anterior, left ICD-785.6 Inactive Kylie Lundum [employer]Y WALL INSTALLATIONS MECHANIC Need for prophylactic vaccination and inoculation against in fluenza ICD-V04.81 Inactive Adam Yates MD Mandy ICD-706.2 Inactive Kylie Holt DRY WALL INSTALLATIONS MECHANIC 07/20 Colon cancer, ascending ICD-153.6 Inactive Bravo Holt DRY WALL INSTALLATIONS MECHANIC Medication List Medication Instructions Start Date Stop Date Generic Name NDC Status Provider Patient Instruction VOLTAREN 1 % TRANSDERMAL GEL apply q 6-8 hour to left arm as needed for pain DICLOFENAC SODIUM 11106263203 Active Kylie Holt AMY Active COQ10 100 MG ORAL CAPSULE 1 daily COENZYME Q10 180885 40214 Active LETY Nation Active VITAMIN D3 2000 UNIT ORAL CAPSULE Melaleuca-One daily CHOLECALCIFEROL 44076641067 Active Kylie Holt APRN Active PROBIOTIC DAILY ORAL CAPSULE Take one daily PROBIO TIC PRODUCT 17405506753 Active Kylie Holt AMY Active IRON 325 (65 Fe) MG ORAL TABLET 1 every other day FERROUS SULFATE 49140463605 No Longer Active Kylie Holt AMY Active FLORANEX ORAL PACKET 1 pack three times daily, for bowel health LACTOBACILLUS 60193466923 No Longer Active Kylie Holt APRN Active LOMOTIL 2.5-0.025 MG ORAL TABLET 1 tab by mouth prn 20 23/10/23 DIPHENOXYLATE-ATROPINE 40001110003 No Longer Active Kylie Holt [employer]Y WALL INSTALLATIONS MECHANIC Active MAGNESIUM GLUCONATE 250 MG ORAL TABLET 1 tab tid 23/10/23 MAGNESIUM GLUCONATE 08534544496 No Longer Active Kylie Yokum [employer]Y WALL INSTALLATIONS MECHANIC Active CYANOCOBALAMIN 1000 MCG/ML INJECTION SOLUTION 1 injection ev ruben 2 weeks CYANOCOBALAMIN 66753104227 No Longer Active Kylie Lund um [employer] WALL INSTALLATIONS MECHANIC Active ATENOLOL 25 MG ORAL TABLET 1/2 pill by mouth daily, fo r headaches, blood pressure ATENOLOL 58320179459 Active Kylie Yokum [employer] WALL INSTALLATIONS MECHANIC Active PROPRANOLOL HCL 80 MG ORAL TABLET 1 tab tue. and thur. PROPRANOLOL HCL 71024451300 No Longer Active Hope Benavidez MD PhD A ctive VITAMIN D3 4000 IU 1 tab 3 times daily VITAMIN D3 4000 IU No Longer Active Hope Benavidez MD PhD Active BACTRIM DS 800-160 MG ORAL TABLET 1 pill by mouth twice claudio y, for UTI SULFAMETHOXAZOLE-TRIMETHOPRIM 72007182078 No Longer Active Hope Benavidez MD PhD Active PROLIA 60 MG/ML SUBCUTANEOUS SOLUTION 1 shot every 6 months for osteoprosis DENOSUMAB 98957740225 Active Hope Benavidez MD PhD Active CALCIUM + D + K 750-500-40 MG-UNT-MCG ORAL TABLET 1 tab by m out twice daily CALCIUM-VITAMIN D-VITAMIN K 97471746301 Active Hope valdez MD PhD Active DAILY VALUE MULTIVITAMIN ORAL TABLET 1 tab by mouth twice daily 201 05/16/14 MULTIPLE VITAMIN 70851157201 Active Hope Benavidez MD PhD Acti ve FISH OIL 306 MG CAPS 1 tab by mouth three times daily OMEGA-3 FATTY ACIDS 33832911196 Active Hope Benavidez MD PhD Active LUTEIN 10 MG ORAL TABLET 1 tab daily LUTEIN 91692533 408 Active Hope Benavidez MD PhD Active TRIAMTERENE-HCTZ 37.5-25 MG ORAL TABLET 1 tab by mouth daily 10/22 TRIAMTERENE-HCTZ 81959174534 Active LETY Rossi Activ e CYCLOBENZAPRINE HCL 10 MG ORAL TABLET 1 tablet by mout h three times daily as needed for headaches CYCLOBENZAPRINE HCL 98468061848 No Longer Active Adam Yates MD Active OMEPRAZOLE 20 MG ORAL CAPSULE DELAYED RELEASE 1 tablet by mo [facility] daily for GERD OMEPRAZOLE 02882736429 No Longer Active Adam Yates MD Active ZOFRAN 8 MG ORAL TABLET 1 tab by mouth every 12 hours prn 4 ONDANSETRON HCL 41687438863 No Longer Active Adam Yates MD Active PHENADOZ 25 MG RECTAL SUPPOSITORY 1 every 4 hrs. PRN 2 PROMETHAZINE HCL 93603706524 No Longer Active Adam Yates MD A ctive POTASSIUM CHLORIDE 20 MEQ ORAL PACKET by mouth twice a day prn 2 POTASSIUM CHLORIDE 38953966318 No Longer Active Adam Carpenter MD Active PROMETHAZINE HCL 25 MG ORAL TABLET 1 Q. 4 hr. PRN PROMETHAZINE HCL 53988653702 No Longer Active Adam Yates MD Active INNOPRAN XL 120 MG ORAL CAPSULE EXTENDED RELEASE 24 HO UR Take one by mouth daily PROPRANOLOL HCL SR BEADS 23369204102 No Longer Active Adam Yates MD Active FLAGYL 500 MG ORAL TABLET 1 pill by mouth three times daily, for diarrhea METRONIDAZOLE 36735671442 No Longer Active Hope landers MD PhD Active DYAZIDE 37.5-25 MG ORAL CAPSULE 1 qd TRIA MTERENE-HCTZ 65411377831 No Longer Active Hope Benavidez MD PhD Active PROZAC 20 MG ORAL CAPSULE 1 q d FLUOXETINE HCL 07699106743 No Longer Active Hope Benavidez MD PhD Active SIMVASTATIN 40 MG ORAL TABLET 1 qd SIMVAS TATIN 90611635919 No Longer Active Adam Yates MD Active MELOXICAM 15 MG ORAL TABLET 1 qd MELOXICAM 86182587712 No Longer Active Adam Yates MD Active IMODIUM A-D 2 MG ORAL TABLET 2 onset at diarrhea and prn. LOPERAMIDE HCL 03357766841 Active Hope Benavidez MD PhD Active EXCEDRIN EXTRA STRENGTH 250-250-65 MG ORAL TABLET 1-2 q6h DC N headache [id number] 36473908601 Active Hope Benavidez MD PhD Active FLAGYL 500 MG ORAL TABLET 1 qid METRONIDAZOL E 32046648585 No Longer Active Adam Yates MD Active LEVAQUIN 750 MG ORAL TABLET 1 qd LEVOFLOXAC IN 58334942364 No Longer Active Adam Yates MD Active ADULT ASPIRIN LOW STRENGTH 81 MG ORAL TABLET DISINTEGRATING 1 qd ASPIRIN 80436560061 Active Hope Benavidez MD PhD Active LEVAQUIN 750 MG ORAL TABLET 1 qd LEVAQUIN 750 MG ORAL TABLET 807065 LEVOFLOXACIN Inactive FLAGYL 500 MG ORAL TABLET 1 qid FLAGYL 500 MG ORAL TABLET 606208 METRONIDAZOLE Inactive MELOXICAM 15 MG ORAL TABLET 1 qd MELOXICAM 15 MG ORAL TABLET 200091 MELOXICAM Inactive SIMVASTATIN 40 MG ORAL TABLET 1 qd SIMVASTATIN 40 MG ORAL TABLET 264947 SIMVASTATIN Inactive PROZAC 20 MG ORAL CAPSULE 1 q d PROZAC 20 MG ORAL CAPSULE 640767 FLUOXETINE HCL Inactive DYAZIDE 37.5-25 MG ORAL CAPSULE 1 qd 5 DYAZIDE 37.5-25 MG ORAL CAPSULE 839435 TRIAMTERENE-HCTZ Inactive INNOPRAN XL 120 MG ORAL CAPSULE EXTENDED RELEASE 24 HO UR Take one by mouth daily INNOPRAN XL 120 MG ORAL CAPSULE EXTENDED RELEASE 24 HOUR PROPRANOLOL HCL SR BEADS Inactive PROMETHAZINE HCL 25 MG ORAL TABLET 1 Q. 4 hr. PRN 2013 PROMETHAZINE HCL 25 MG ORAL TABLET 765594 PROMETHAZINE HCL Inactive POTASSIUM CHLORIDE 20 MEQ ORAL PACKET by mouth twice a day prn 2 POTASSIUM CHLORIDE 20 MEQ ORAL PACKET 4397388 POTASSIUM CHLORIDE Inactive PHENADOZ 25 MG RECTAL SUPPOSITORY 1 every 4 hrs. PRN 2 014/09/10 PHENADOZ 25 MG RECTAL SUPPOSITORY 147675 PROMETHAZINE HCL Inactive ZOFRAN 8 MG ORAL TABLET 1 tab by mouth every 12 hours prn 4 ZOFRAN 8 MG ORAL TABLET 533282 ONDANSETRON HCL Inactive OMEPRAZOLE 20 MG ORAL CAPSULE DELAYED RELEASE 1 tablet by mo uth daily for GERD OMEPRAZOLE 20 MG ORAL CAPSULE DELAYED RELEASE 19 8051 OMEPRAZOLE Inactive CYCLOBENZAPRINE HCL 10 MG ORAL TABLET 1 tablet by mout h three times daily as needed for headaches CYCLOBENZAPRINE HCL 10 MG ORAL TABLET 513970 CYCLOBENZAPRINE HCL Inactive VITAMIN D3 4000 IU 1 tab 3 times daily VITAMIN D3 4000 IU Inactive PROPRANOLOL HCL 80 MG ORAL TABLET 1 tab tue. and thur. PROPRANOLOL HCL 80 MG ORAL TABLET 317161 PROPRANOLOL HCL Inacti ve CYANOCOBALAMIN 1000 MCG/ML INJECTION SOLUTION 1 injection ev ruben 2 weeks CYANOCOBALAMIN 1000 MCG/ML INJECTION SOLUTION 30 9594 CYANOCOBALAMIN Inactive MAGNESIUM GLUCONATE 250 MG ORAL TABLET 1 tab tid 20 23/10/23 MAGNESIUM GLUCONATE 250 MG ORAL TABLET 764890 MAGNESIUM GLUCONATE Inactive LOMOTIL 2.5-0.025 MG ORAL TABLET 1 tab by mouth prn 20 23/10/23 LOMOTIL 2.5-0.025 MG ORAL TABLET 5160482 DIPHENOXYLATE-ATROPINE Inac tive FLORANEX ORAL PACKET 1 pack three times daily, for bowel health FLORANEX ORAL PACKET LACTOBACILLUS Inactive IRON 325 (65 Fe) MG ORAL TABLET 1 every other day 2015 IRON 325 (65 Fe) MG ORAL TABLET 473584 FERROUS SULFATE Inactive FLAGYL 500 MG ORAL TABLET 1 pill by mouth three times daily, for diarrhea FLAGYL 500 MG ORAL TABLET 101903 METRONIDAZOLE I nactive BACTRIM DS 800-160 MG ORAL TABLET 1 pill by mouth twice claudio y, for UTI BACTRIM DS 800-160 MG ORAL TABLET 069026 SULFAMETHOXAZOLE-TRIMETHOPRIM Inactive Advance Directives Directive Description Start [...] ... - Chemistry sodium, serum 138 mmol/L 556-500 9609/12/15 potassium, serum 4.0 mmol/L 3.5-5.2 chloride, serum [...] 11 .0-15.0 platelet count 157 THOUSAND/UL 10*3/mm3 673-497 8825/04/20 mean platelet volume 8.9 fL 7.5-12.5 Lab Report: CEA - Serology carcinoembryonic antigen 0.9 ng/mL Encounters Code Encounter Date Provider Facility CPT-05690 Level 3 Est. Patient 08:15:24 YARN CLEANER Kylie Lund [facility] CPT-88466 Level 2 Est. Patient 14:27:16 YARN CLEANER [facility]-65714 Level 3 Est. Patient 17:54:48 CDT [facility] CPT-59794 Level 3 Est. Patient 16:26:30 CDT Kina blackmon [facility] CPT-96595 Level 3 New Patient 16:22:01 YARN CLEANER Adam Yates MD [facility] CPT-33646 Level 4 Est. Patient 17:00:48 CDT Kylie Lund [facility] CPT-69615 Level 3 Est. Patient 13:15:54 CDT Kylie Lund [facility] CPT-07897 Level 3 Est. Patient 09:10:11 CDT Kylie Lund [facility] CPT-44800 Level 4 Est. Patient 12:08:30 YARN CLEANER Hope cohn MD [facility] CPT-62149 Level 4 Est. Patient 19:08:42 YARN CLEANER Hope cohn MD PhD [facility] CPT-99078 Level 4 Est. Patient 20:04:51 CDT Hope cohn MD PhD [facility] CPT-24792 Level 3 New Patient 01:46:11 YARN CLEANER Hope landers MD PhD [facility] Procedures Code Procedure Name Date Entry Date Standard Desc ription CPT-99610 Venipuncture Draw Fee 10:59:04 CDT CPT-29195 CMP - LAB USE ONLY 10:59:04 CDT CPT-57644 CBC with Diff - LAB USE ONLY 10:59:03 CDT 2 CPT-J0897 Prolia 60 mg 15:46:54 YARN CLEANER CPT-84634 Abx/Therapy Injection 15:46:54 YARN CLEANER CPT-99552 Microalbumin - LAB USE ONLY 09:41:32 YARN CLEANER 20 23/01/15 CPT-71977 Free T4 - LAB USE ONLY 09:41:32 YARN CLEANER CPT-47443 TSH - LAB USE ONLY 09:41:32 YARN CLEANER CPT-27130 BMP - LAB USE ONLY 09:41:32 YARN CLEANER CPT-46721 Venipuncture Draw Fee 09:41:32 YARN CLEANER CPT-19345 First Vx - Ix admin for Medicare patients 11:19:30 CDT CPT-24413 Fluzone High-Dose Intramuscular Suspension 12/07 11:19:30 CDT CPT-J0897 Prolia 60 mg 14:55:42 CDT CPT-27365 Abx/Therapy Injection 14:55:42 CDT CPT-82640 Bone Density - XRAY USE ONLY 10:27:12 CDT 2 CPT-G0439 Subsequent Annual Wellness Exam 17:54:53 CDT CPT-47566 Foot, left, comp min 3V - XRAY USE ONLY 12:22:49 CDT CPT-G0009 Administration of Pneumococcal Vaccine 3 12:18:00 CDT CPT-50050 Pneumovax 23 Injection Injectable 25 MCG /0.5ML 12:18:00 CDT CPT-J0897 Prolia 60 mg 14:14:16 YARN CLEANER CPT-31026 Abx/Therapy Injection 14:14:15 YARN CLEANER CPT-61473 Lipid - LAB USE ONLY 10:01:52 YARN CLEANER 2 CPT-62218 Calcium - LAB USE ONLY 10:01:51 YARN CLEANER CPT-26131 Venipuncture Draw Fee 10:01:51 YARN CLEANER CPT-LR Lesion Removal 16:22:01 YARN CLEANER CPT-54536 TSH - LAB USE ONLY 14:26:02 CDT CPT-01385 CMP - LAB USE ONLY 14:26:01 CDT CPT-11409 CBC with Diff - LAB USE ONLY 14:26:01 CDT 2 CPT-69296 Venipuncture Draw Fee 14:26:01 CDT CPT-69956 First Vx - Ix admin for Medicare patients 13:27:08 CDT CPT-63278 Fluzone High-Dose Intramuscular Suspension 11/26 13:27:08 CDT CPT-G0438 Initial Annual Wellness Exam 14:19:57 CD T CPT-G0009 Administration of Pneumococcal Vaccine 9 11:36:25 CDT CPT-09221 Prevnar 13 Intramuscular Suspension 1 1:36:25 CDT CPT-42581 Prevnar 13 Intramuscular Suspension 1 0:40:58 CDT CPT-J0897 Prolia 60 mg 10:37:16 CDT CPT-71276 Abx/Therapy Injection 10:37:16 CDT CPT-J0897 Prolia 60 mg 16:09:34 YARN CLEANER CPT-J0897 Prolia 60 mg 11:10:35 YARN CLEANER CPT-75038 Abx/Therapy Injection 11:10:35 YARN CLEANER CPT-000 Give Appropriate Flu Vaccine 17:01:15 YARN CLEANER 2 CPT-98438 Fluzone High Dose (65+) 15:03:08 YARN CLEANER 02/15 CPT-71878 Immunization Single Admin 15:03:08 YARN CLEANER 2014 CPT-OV Office Visit 15:58:06 CDT CPT-J0897 Prolia 60 mg 08:45:38 CDT CPT-69769 Abx/Therapy Injection 08:45:38 CDT CPT-J3420 Vitamin B12 1000mcg (Cyanocobalamin) 09:26:20 YARN CLEANER CPT-51917 Abx/Therapy Injection 09:26:20 YARN CLEANER CPT-J3420 Vitamin B12 1000mcg (Cyanocobalamin) 09:44:40 YARN CLEANER CPT-56029 Abx/Therapy Injection 09:44:40 YARN CLEANER CPT-J3420 Vitamin B12 1000mcg (Cyanocobalamin) 09:15:54 YARN CLEANER CPT-15285 Abx/Therapy Injection 09:15:54 YARN CLEANER CPT-J3420 Vitamin B12 1000mcg (Cyanocobalamin) 09:46:44 YARN CLEANER CPT-66362 Abx/Therapy Injection 09:46:44 YARN CLEANER CPT-J3420 Vitamin B12 1000mcg (Cyanocobalamin) 09:47:34 YARN CLEANER CPT-33854 Abx/Therapy Injection 09:47:34 YARN CLEANER CPT-J3420 Vitamin B12 1000mcg (Cyanocobalamin) 14:35:50 YARN CLEANER CPT-J3420 Vitamin B12 1000mcg (Cyanocobalamin) 09:25:05 YARN CLEANER CPT-60315 Abx/Therapy Injection 09:25:05 YARN CLEANER CPT-G0008 Administration of Influenza Virus Vaccine 13:36:47 CDT CPT-97089 Fluzone High-Dose Intramuscular Suspension 11/15 13:36:47 CDT CPT-J0897 Prolia 60 mg 08:50:41 CDT CPT-38053 Abx/Therapy Injection 08:50:41 CDT CPT-44230 Bone Density 12:06:12 CDT CPT-84666 Bone Density 08:54:40 CDT CPT-OV Office Visit 15:37:02 CDT CPT-47703 Postop F/U Visit 15:47:49 CDT CPT-28527 Postop F/U Visit 15:21:02 CDT [facility] Transitional Care Mgmt-High 07:52:27 CDT 20 20/06/01 CPT-59172 Venipuncture Draw Fee 13:51:18 CDT CPT-43506 Venipuncture Draw Fee 10:14:55 YARN CLEANER CPT-17346 Venipuncture Draw Fee 13:39:45 YARN CLEANER CPT-OV Office Visit 15:11:22 YARN CLEANER CPT-47215 Venipuncture Draw Fee 09:20:49 YARN CLEANER CPT-12177 Venipuncture Draw Fee 16:52:15 YARN CLEANER CPT-48442 Venipuncture Draw Fee 10:37:24 YARN CLEANER CPT-13374 Venipuncture Draw Fee 08:21:21 YARN CLEANER CPT-03345 Venipuncture Draw Fee 08:30:20 YARN CLEANER CPT-33642 Venipuncture Draw Fee 14:53:21 YARN CLEANER CPT-22457 Venipuncture Draw Fee 09:40:56 YARN CLEANER CPT-57693 Venipuncture Draw Fee 10:30:47 YARN CLEANER CPT-16134 Venipuncture Draw Fee 10:46:17 YARN CLEANER CPT-67752 Venipuncture Draw Fee 11:12:45 YARN CLEANER CPT-70982 Venipuncture Draw Fee 09:53:33 YARN CLEANER CPT-62985 Venipuncture Draw Fee 11:53:51 YARN CLEANER CPT-96974 Venipuncture Draw Fee 10:33:50 YARN CLEANER CPT-61240 Venipuncture Draw Fee 10:05:01 YARN CLEANER CPT-67348 Venipuncture Draw Fee 14:32:52 YARN CLEANER CPT-38081 Venipuncture Draw Fee 09:46:13 YARN CLEANER CPT-82937 Venipuncture Draw Fee 11:34:27 YARN CLEANER CPT-93332 Venipuncture Draw Fee 13:17:16 YARN CLEANER CPT-82420 Venipuncture Draw Fee 12:05:39 CDT CPT-35139 Venipuncture Draw Fee 12:49:12 CDT CPT-65275 Venipuncture Draw Fee 12:37:18 CDT CPT-22147 Venipuncture Draw Fee 10:57:11 CDT CPT-74783 Venipuncture Draw Fee 13:47:40 CDT CPT-63876 Venipuncture Draw Fee 10:02:17 CDT CPT-38827 TB Tubersol 17:32:32 CDT CPT-OV Office Visit 16:21:53 CDT CPT-OV Office Visit 15:49:22 CDT CPT-OV Office Visit 17:16:31 CDT CPT-OV Office Visit 10:43:31 CDT
--- OUTSIDE RECORDS SUMMARY | 2019-02-09 12:49 | XMS REPORT | Clinical Summary ---
Author Author Florecita Macario Organization [facility] Address Unknown Phone Unavailable Allergies, Adverse [...] cohn MD PhD UNSPECIFIED VENOUS INSUFFICIENCY ICD-459.81 [place] [facility] Adam Yates MD ADENOCARCINOMA, ASCENDING COLON [...] daily, for headac hes, blood pressure ATENOLOL 49603282701 Active Hope Benavidez MD PhD Active PROPRANOLOL HCL 80 MG TABS 1 tab tue. and thur. 04/10 PROPRANOLOL HCL 37227921915 No Longer Active Hope Benavidez MD PhD A ctive IRON 325 (65 FE) MG TABS 1 every other day FERROUS SULFATE 17234972506 Active Hope Benavidez MD PhD Active VITAMIN D3 4000 IU 1 tab 3 times daily VITAMIN D3 4000 IU No Longer Active Hope Benavidez MD PhD Active CYANOCOBALAMIN 1000 MCG/ML INJ SOLN 1 injection every 2 weeks 01/09 CYANOCOBALAMIN 93941290290 Active Laura Elder Active BACTRIM DS 800-160 MG TABS 1 pill by mouth twice daily, for UTI SULFAMETHOXAZOLE-TRIMETHOPRIM 23709155262 No Longer Active Lisa attila Benavidez MD PhD Active PROLIA 60 MG/ML SOLN 1 shot every 6 months for osteoprosis DENOSUMAB 32974490345 Active Hope Benavidez MD PhD Active CALCIUM + D + K 750-500-40 MG-UNT-MCG TABS 1 tab by mouth tw ice daily CALCIUM-VITAMIN D-VITAMIN K 50528664401 Active Hope landers MD PhD Active DAILY VALUE MULTIVITAMIN TABS 1 tab by mouth twice daily MULTIPLE VITAMIN 26792244085 Active Hope Benavidez MD PhD Active FISH OIL 306 MG CAPS 1 tab by mouth three times daily OMEGA-3 FATTY ACIDS 92341529322 Active Hope Benavidez MD PhD Active LUTEIN 10 MG TABS 1 tab daily LUTEIN 84918442446 Act cash Hope Benavidez MD PhD Active FLORANEX PACK 1 pack three times daily, for bowel health LACTOBACILLUS 58307049579 Active Hope Benavidez MD PhD Active LOMOTIL 2.5-0.025 MG TABS 1 tab by mouth prn DIPHENOXYLATE-ATROPINE 48624392785 Active Hope Benavidez MD PhD Active TRIAMTERENE-HCTZ 37.5-25 MG TABS 1 tab by mouth daily TRIAMTERENE-HCTZ 83849540779 Active Hope Benavidez MD PhD Acti ve MAGNESIUM GLUCONATE 250 MG TABS 1 tab tid MAGN ESIUM GLUCONATE 14042735074 Active Adam Yates MD Active CYCLOBENZAPRINE HCL 10 MG TABS 1 tablet by mouth three times daily as needed for headaches CYCLOBENZAPRINE HCL 03313007383 No Longe r Active Adam Yates MD Active OMEPRAZOLE 20 MG CPDR 1 tablet by mouth daily for GERD OMEPRAZOLE 12071166730 No Longer Active Adam Yates MD A ctive ZOFRAN 8 MG TABS 1 tab by mouth every 12 hours prn 201 05/16/09 ONDANSETRON HCL 21765895138 No Longer Active Adam Yates MD Active PHENADOZ 25 MG SUPP 1 every 4 hrs. PRN PROMETHA ZINE HCL 37806935956 No Longer Active Adam Yates MD Active POTASSIUM CHLORIDE 20 MEQ PACK by mouth twice a day prn POTASSIUM CHLORIDE 84607955185 No Longer Active Adam Yates MD Active PROMETHAZINE HCL 25 MG TABS 1 Q. 4 hr. PRN PROM ETHAZINE HCL 50843063681 No Longer Active Adam Yates MD Active INNOPRAN XL 120 MG [id number] Take one by mouth daily 2 PROPRANOLOL HCL SR BEADS 83874962644 No Longer Active Adam Yates MD A ctive FLAGYL 500 MG TABS 1 pill by mouth three times daily, for diarrh ea METRONIDAZOLE 82160607736 No Longer Active Hope Benavidez MD PhD Active DYAZIDE 37.5-25 MG CAPS 1 qd TRIAMTERENE-HC TZ 38941296203 No Longer Active Hope Benavidez MD PhD Active PROZAC 20 MG CAPS 1 q d FLUOXETINE HCL 89642 778829 No Longer Active Hope Benavidez MD PhD Active SIMVASTATIN 40 MG TABS 1 qd SIMVASTATIN 004 35833427 No Longer Active Adam Yates MD Active MELOXICAM 15 MG TABS 1 qd MELOXICAM 2021305 4885 No Longer Active Adam Yatse MD Active IMODIUM A-D 2 MG TABS 2 onset at diarrhea and prn. LOPERAMIDE HCL 97414844774 Active Hope Benavidez MD PhD Active EXCEDRIN EXTRA STRENGTH 250-250-65 MG TABS 1-2 q6h PRN headache 201 04/16/21 [id number] 35011489033 Active Hope Benavidez MD PhD Active FLAGYL 500 MG TABS 1 qid METRONIDAZOLE 68849 037522 No Longer Active Adam Yates MD Active LEVAQUIN 750 MG TABS 1 qd LEVOFLOXACIN 5486 0200142 No Longer Active Adam Yates MD Active ADULT ASPIRIN LOW STRENGTH 81 MG TBDP 1 qd A SPIRIN 31317504732 Active Hope Benavidez MD PhD Active LEVAQUIN 750 MG TABS 1 qd LEVAQUIN 750 MG T ABS 229674 LEVOFLOXACIN Inactive FLAGYL 500 MG TABS 1 qid FLAGYL 500 MG TABS 934108 METRONIDAZOLE Inactive MELOXICAM 15 MG TABS 1 qd MELOXICAM 15 MG T ABS 656860 MELOXICAM Inactive SIMVASTATIN 40 MG TABS 1 qd SIMVASTATIN 40 MG TABS 252859 SIMVASTATIN Inactive PROZAC 20 MG CAPS 1 q d PROZAC 20 MG CAPS 31 0385 FLUOXETINE HCL Inactive DYAZIDE 37.5-25 MG CAPS 1 qd DYAZIDE 37.5 -25 MG CAPS 523402 TRIAMTERENE-HCTZ Inactive INNOPRAN XL 120 MG [id number] Take one by mouth daily 2 INNOPRAN XL 120 MG [id number] PROPRANOLOL HCL SR BEADS Inactive PROMETHAZINE HCL 25 MG TABS 1 Q. 4 hr. PRN PROMETHAZINE HCL 25 MG TABS 048469 PROMETHAZINE HCL Inactive POTASSIUM CHLORIDE 20 MEQ PACK by mouth twice a day prn POTASSIUM CHLORIDE 20 MEQ PACK 987543 POTASSIUM CHLORIDE Inactive PHENADOZ 25 MG SUPP 1 every 4 hrs. PRN PHENADOZ 2 5 MG SUPP 293929 PROMETHAZINE HCL Inactive ZOFRAN 8 MG TABS 1 tab by mouth every 12 hours prn 201 05/16/09 ZOFRAN 8 MG TABS 702453 ONDANSETRON HCL Inactive OMEPRAZOLE 20 MG CPDR 1 tablet by mouth daily for GERD OMEPRAZOLE 20 MG CPDR 307319 OMEPRAZOLE Inactive CYCLOBENZAPRINE HCL 10 MG TABS 1 tablet by mouth three times daily as needed for headaches CYCLOBENZAPRINE HCL 10 MG TABS 139180 CYCLOBENZAPRINE HCL Inactive VITAMIN D3 4000 IU 1 tab 3 times daily VITAMIN D3 4000 IU Inactive PROPRANOLOL HCL 80 MG TABS 1 tab tue. and thur. 04/10 PROPRANOLOL HCL 80 MG TABS 847854 PROPRANOLOL HCL Inactive FLAGYL 500 MG TABS 1 pill by mouth three times daily, for diarrh ea FLAGYL 500 MG TABS 549270 METRONIDAZOLE Inactive BACTRIM DS 800-160 MG TABS [...] - 3141-9 108 [lb_av] Weigh t Measured Diagnostic Results Date Name Value Unit Range Description Chart Maintenance: labs added to [facility] et - Chemistry magnesium, serum 2.0 mg/dL Chart Maintenance: Outside labs entered on [facility] - Chemistry sodium, serum 139 mmol/L potassium, serum 3.9 mmol/L blood glucose 85 mg/dL creatinine, serum 1.26 mg/dL aspartate aminotransferase (SGOT), serum 33 U/L alanine aminotransferase (SGPT), serum 44 U/L alkaline phosphatase, serum 127 U/L Chart Maintenance: Outside labs entered on [facility] - Hematology leukocyte count, blood 4.6 10*3/mm3 hemoglobin, blood 13.6 g/dL platelet count 162 10*3/mm3 Lab Report: BMP - Chemistry sodium, serum 141 mmol/L potassium, serum 4.2 mmol/L blood glucose 66 mg/dL creatinine, serum 1.16 mg/dL Lab Report: CBC W/DIFF, Comp. Metabolic Panel - Chemistry sodium, serum 138 mmol/L 215-980 8526/08/14 potassium, serum 4.0 mmol/L 3.5-5.2 chloride, serum [...] 0.40 mg/dL 0.00-1.00 sodium, serum 145 mmol/L 290-823 9929/02/02 potassium, serum 4.2 mmol/L 3.5-5.2 chloride, serum 104 mmol/L 98-107 carbon dioxide, venous blood 28.3 mmol/L 21.0-32 .0 blood glucose 93 mg/dL 65-110 urea nitrogen, blood 32 mg/dL 7-18 creatinine, serum 1.40 mg/dL 0.60-1.30 alanine aminotransferase (SGPT), serum 73 U/L 12-78 aspartate aminotransferase (SGOT), serum 42 U/L 15-37 calcium, serum 9.2 mg/dL 8.5-10.1 bilirubin, serum, total 0.40 mg/dL 0.00-1.00 sodium, serum 142 mmol/L 254-377 5180/04/27 potassium, serum 3.2 mmol/L 3.5-5.2 chloride, serum [...] 11 .6-14.8 platelet count 155 10^3/MM^3 10*3/mm3 521-337 2793/04/27 leukocyte count, blood 5.3 10^3/MM^3 10*3/mm3 4.6-10.2 [...] 11 .6-14.8 platelet count 213 10^3/MM^3 10*3/mm3 060-579 6502/08/14 leukocyte count, blood 5.8 10^3/MM^3 10*3/mm3 4.6-10.2 [...] - Chem istry sodium, serum 143 mmol/L 165-327 8706/04/15 potassium, serum 3.4 mmol/L 3.5-5.2 chloride, serum [...] Panel - Chemistry cholesterol, serum 209 mg/dL 329-148 4360/09/11 triglyceride, serum, fasting 113 mg/dL 30-200 HDL [...] semiquantitative 7.0 5.0-8.5 Lab Report: VITAMIN D, 25-HYDROXY/13379, MAGNESIUM/622 - Chemistry vitamin D 25-hydroxy, serum 41 ng/mL 30-100 Encounters Code Encounter Date Provider Facility CPT-34194 Level 4 Est. Patient 12:08:30 CARDIAC CATH LAB MANAGER Hope cohn MD PhD [facility] CPT-82560 Level 4 Est. Patient 19:08:42 CARDIAC CATH LAB MANAGER Hope cohn MD PhD [facility] CPT-60996 Level 4 Est. Patient 20:04:51 CDT Hope cohn MD PhD [facility] CPT-09191 Level 3 New Patient 01:46:11 CARDIAC CATH LAB MANAGER Hope landers MD PhD [facility] Procedures Code Procedure Name Date Entry Date Standard Desc ription CPT-OV Office Visit 15:58:06 CDT CPT-J0897 Prolia 60 mg 08:45:38 CDT CPT-42082 Abx/Therapy Injection 08:45:38 CDT CPT-J3420 Vitamin B12 1000mcg (Cyanocobalamin) 09:26:20 CARDIAC CATH LAB MANAGER CPT-03000 Abx/Therapy Injection 09:26:20 CARDIAC CATH LAB MANAGER CPT-J3420 Vitamin B12 1000mcg (Cyanocobalamin) 09:44:40 CARDIAC CATH LAB MANAGER CPT-99738 Abx/Therapy Injection 09:44:40 CARDIAC CATH LAB MANAGER CPT-J3420 Vitamin B12 1000mcg (Cyanocobalamin) 09:15:54 CARDIAC CATH LAB MANAGER CPT-30479 Abx/Therapy Injection 09:15:54 CARDIAC CATH LAB MANAGER CPT-J3420 Vitamin B12 1000mcg (Cyanocobalamin) 09:46:44 CARDIAC CATH LAB MANAGER CPT-21875 Abx/Therapy Injection 09:46:44 CARDIAC CATH LAB MANAGER CPT-J3420 Vitamin B12 1000mcg (Cyanocobalamin) 09:47:34 CARDIAC CATH LAB MANAGER CPT-44007 Abx/Therapy Injection 09:47:34 CARDIAC CATH LAB MANAGER CPT-J3420 Vitamin B12 1000mcg (Cyanocobalamin) 14:35:50 CARDIAC CATH LAB MANAGER CPT-J3420 Vitamin B12 1000mcg (Cyanocobalamin) 09:25:05 CARDIAC CATH LAB MANAGER CPT-66044 Abx/Therapy Injection 09:25:05 CARDIAC CATH LAB MANAGER CPT-G0008 Administration of Influenza Virus Vaccine 13:36:47 CDT CPT-71598 Fluzone High-Dose Intramuscular Suspension 11/15 13:36:47 CDT CPT-J0897 Prolia 60 mg 08:50:41 CDT CPT-25713 Abx/Therapy Injection 08:50:41 CDT CPT-02381 Bone Density 12:06:12 CDT CPT-03327 Bone Density 08:54:40 CDT CPT-OV Office Visit 15:37:02 CDT CPT-89231 Postop F/U Visit 15:47:49 CDT CPT-98562 Postop F/U Visit 15:21:02 CDT CPT-TCMH Transitional Care Mgmt-High 07:52:27 CDT 20 20/06/01 CPT-75686 Venipuncture Draw Fee 13:51:18 CDT CPT-68716 Venipuncture Draw Fee 10:14:55 CARDIAC CATH LAB MANAGER CPT-72446 Venipuncture Draw Fee 13:39:45 CARDIAC CATH LAB MANAGER CPT-OV Office Visit 15:11:22 CARDIAC CATH LAB MANAGER CPT-03928 Venipuncture Draw Fee 09:20:49 CARDIAC CATH LAB MANAGER CPT-58495 Venipuncture Draw Fee 16:52:15 CARDIAC CATH LAB MANAGER CPT-87614 Venipuncture Draw Fee 10:37:24 CARDIAC CATH LAB MANAGER CPT-79209 Venipuncture Draw Fee 08:21:21 CARDIAC CATH LAB MANAGER CPT-86817 Venipuncture Draw Fee 08:30:20 CARDIAC CATH LAB MANAGER CPT-56730 Venipuncture Draw Fee 14:53:21 CARDIAC CATH LAB MANAGER CPT-44011 Venipuncture Draw Fee 09:40:56 CARDIAC CATH LAB MANAGER CPT-19326 Venipuncture Draw Fee 10:30:47 CARDIAC CATH LAB MANAGER CPT-29143 Venipuncture Draw Fee 10:46:17 CARDIAC CATH LAB MANAGER CPT-82076 Venipuncture Draw Fee 11:12:45 CARDIAC CATH LAB MANAGER CPT-00829 Venipuncture Draw Fee 09:53:33 CARDIAC CATH LAB MANAGER CPT-40076 Venipuncture Draw Fee 11:53:51 CARDIAC CATH LAB MANAGER CPT-82703 Venipuncture Draw Fee 10:33:50 CARDIAC CATH LAB MANAGER CPT-77860 Venipuncture Draw Fee 10:05:01 CARDIAC CATH LAB MANAGER CPT-45295 Venipuncture Draw Fee 14:32:52 CARDIAC CATH LAB MANAGER CPT-13063 Venipuncture Draw Fee 09:46:13 CARDIAC CATH LAB MANAGER CPT-89783 Venipuncture Draw Fee 11:34:27 CARDIAC CATH LAB MANAGER CPT-46353 Venipuncture Draw Fee 13:17:16 CARDIAC CATH LAB MANAGER CPT-71619 Venipuncture Draw Fee 12:05:39 CDT CPT-17664 Venipuncture Draw Fee 12:49:12 CDT CPT-09380 Venipuncture Draw Fee 12:37:18 CDT CPT-26453 Venipuncture Draw Fee 10:57:11 CDT CPT-35374 Venipuncture Draw Fee 13:47:40 CDT CPT-24864 Venipuncture Draw Fee 10:02:17 CDT CPT-14829 TB Tubersol 17:32:32 CDT CPT-OV Office Visit 16:21:53 CDT CPT-OV Office Visit 15:49:22 CDT CPT-OV Office Visit 17:16:31 CDT CPT-OV Office Visit 10:43:31 CDT
--- OUTSIDE RECORDS SUMMARY | 2019-02-09 12:49 | XMS REPORT | Clinical Summary ---
Author Author Renaldo, Florecita Mnuoz Organization [facility] Address Unknown Phone Unavailable Allergies, Adverse [...] PhD Hyperpotassemia GERD 530.81 Resolved Kylie Yokum MELT DOWN FURNACE OPERATOR Esophageal reflux Health maintenance exam V70.0 Resolved Adolfo Yates MD Routine general medical examination at a health care facility Anemia 285.9 Resolved Kylie Yanet MELT DOWN FURNACE OPERATOR Anemia, unspecified Personal history of malignant neoplasm of large intestine V10.05 Active Adam Yates MD Personal history of malignant neoplasm of large intestine Hypomagnesemia 275.2 Resolved Kylie Yanet MELT DOWN FURNACE OPERATOR Disorders of magnesium metabolism Weakness 780.79 [...] Sebaceous cyst, scalp 706.2 Resolved Kylie Yokum MELT DOWN FURNACE OPERATOR Sebaceous cyst Cervical lymphadenopathy, anterior, left 785.6 Resolv ed Kylie Yokum MELT DOWN FURNACE OPERATOR Enlargement of lymph nodes Need for prophylactic vaccination and inoculation against in fluenza V04.81 Resolved Adam Yates MD Need for prophylactic vaccination and inoculation against influenza Preventive health care V70.0 Resolved Kylie Escalonaku m MELT DOWN FURNACE OPERATOR Routine general medical examination at a health care facility Thyroid nodule, left 241.0 Active Kylie Yokum A PRN Nontoxic uninodular goiter Screening mammogram V76.12 Resolved Kylie Yokum A PRN Other screening mammogram Mandy 706.2 Resolved Kylie Yokum MELT DOWN FURNACE OPERATOR Sebaceous cyst Colon cancer, ascending 153.6 Resolved Kylie Yok um MELT DOWN FURNACE OPERATOR Malignant neoplasm of ascending colon Foot pain, left 729.5 Resolved Kylie Yokum MELT DOWN FURNACE OPERATOR Pain in limb Splinter 919.6 Resolved Kylie Yokum MELT DOWN FURNACE OPERATOR Superficial foreign body (splinter) of other, multiple, and unspecified sites, without major open wound and without mention of infection Rash 782.1 Resolved Kylie Yokum MELT DOWN FURNACE OPERATOR Rash and other nonspecific skin eruption Cyst 706.2 Resolved Kylie Yokum MELT DOWN FURNACE OPERATOR Sebaceous cyst Body Mass Index 23.0-23.9 Adult Active Kylie Yokum MELT DOWN FURNACE OPERATOR Body Mass Index between 19-24, adult Unspecified fall, initial encounter E888.9 Inactive Kylieshubham Holt MELT DOWN FURNACE OPERATOR Unspecified fall Eye pain, left 379.91 Inactive Kylie Yogabbium MELT DOWN FURNACE OPERATOR Pain in or around eye Pharyngitis, acute 074.0 Active Kylieshubham Holt APR N Herpangina ABDOMINAL PAIN, RIGHT LOWER QUADRANT ICD-789.03 Inactive Kina Joshua MELT DOWN FURNACE OPERATOR ADENOCARCINOMA, COLON, 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 Dick Yates MD ABDOMINAL PAIN, GENERALIZED ICD-789.07 Inactive Hope Benavidez MD PhD FEVER UNSPECIFIED ICD-780.60 Inactive Hope cohn MD PhD UNSPECIFIED VENOUS INSUFFICIENCY ICD-459.81 Elda ctive Adam Yates MD ADENOCARCINOMA, 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 Inac tive Hope Benavidez MD PhD Hyperkalemia ICD-276.7 Inactive Hope Benavidez MD PhD GERD ICD-530.81 Inactive Kylie Lundum MELT DOWN FURNACE OPERATOR 2015 Health maintenance exam ICD-V70.0 Bam Yates MD Anemia ICD-285.9 Inactive Kylie Lundum MELT DOWN FURNACE OPERATOR 07/24 Hypomagnesemia ICD-275.2 Inactive Kylie Yokum MELT DOWN FURNACE OPERATOR Weakness ICD-780.79 Inactive Hope Benavidez MD [...] cyst, scalp ICD-706.2 Inactive Tracy hi Yokum MELT DOWN FURNACE OPERATOR Cervical lymphadenopathy, anterior, left ICD-785.6 Inactive Kylie Yokum MELT DOWN FURNACE OPERATOR Need for prophylactic vaccination and inoculation against in fluenza ICD-V04.81 Inactive Adam Yates MD Preventive health care ICD-V70.0 Inactive Ka thi Yokum MELT DOWN FURNACE OPERATOR Screening mammogram ICD-V76.12 Inactive Kylie Yokum MELT DOWN FURNACE OPERATOR Mandy ICD-706.2 Inactive Kylie Yokum MELT DOWN FURNACE OPERATOR 07/20 Colon cancer, ascending ICD-153.6 Inactive K athi Yokum MELT DOWN FURNACE OPERATOR Foot pain, left ICD-729.5 Inactive Kylie Yokum MELT DOWN FURNACE OPERATOR Splinter ICD-919.6 Inactive Kylie Yokum MELT DOWN FURNACE OPERATOR 2017 Rash ICD-782.1 Inactive Kylie Yokum MELT DOWN FURNACE OPERATOR 07/25 Cyst ICD-706.2 Inactive Kylie Holt MELT DOWN FURNACE OPERATOR 08/11 Unspecified fall, initial encounter ICD-E888.9 Inactive Kylie Holt MELT DOWN FURNACE OPERATOR Eye pain, left ICD-379.91 Inactive Kylie Holt MELT DOWN FURNACE OPERATOR Medication List Medication Instructions Start Date Stop Date Generic Name ND Status Provider Patient Instruction IMODIUM A-D 2 MG ORAL TABLET 1 tablet twice a day LOPERAMIDE HCL 49474079735 Active Kylie Holt MELT DOWN FURNACE OPERATOR Active VOLTAREN 1 % TRANSDERMAL GEL apply q 6-8 hour to left arm as needed for pain DICLOFENAC SODIUM 88977673075 Active Kylie Holt APRN Active COQ10 100 MG ORAL CAPSULE 1 daily COENZYME Q10 656891 13113 Active LETY Nation Active VITAMIN D3 2000 UNIT ORAL CAPSULE Melaleuca-One daily CHOLECALCIFEROL 10910987538 Active Kylie Holt APRN Active PROBIOTIC DAILY ORAL CAPSULE Take one daily PROBIO TIC PRODUCT 04870155759 Active Kylie Holt APRN Active IRON 325 (65 Fe) MG ORAL TABLET 1 every other day FERROUS SULFATE 74664352583 No Longer Active Kylie Holt APRN Active FLORANEX ORAL PACKET 1 pack three times daily, for bowel health LACTOBACILLUS 45606303323 No Longer Active Kylie Holt APRN Active LOMOTIL 2.5-0.025 MG ORAL TABLET 1 tab by mouth prn 23/10/23 DIPHENOXYLATE-ATROPINE 52607914606 No Longer Active Kylie Lundum MELT DOWN FURNACE OPERATOR Active MAGNESIUM GLUCONATE 250 MG ORAL TABLET 1 tab tid 23/10/23 MAGNESIUM GLUCONATE 88155653808 No Longer Active Kylie Lundum MELT DOWN FURNACE OPERATOR Active CYANOCOBALAMIN 1000 MCG/ML INJECTION SOLUTION 1 injection ev ruben 2 weeks CYANOCOBALAMIN 71459075827 No Longer Active Kylie Lund um MELT DOWN FURNACE OPERATOR Active ATENOLOL 25 MG ORAL TABLET 1/2 pill by mouth daily, fo r headaches, blood pressure ATENOLOL 55547442136 Active Kylie Escalonagabbioliver MELT DOWN FURNACE OPERATOR Active PROPRANOLOL HCL 80 MG ORAL TABLET 1 tab tue. and thur. PROPRANOLOL HCL 22936738074 No Longer Active Hope Benavidez MD PhD A ctive VITAMIN D3 4000 IU 1 tab 3 times daily VITAMIN D3 4000 IU No Longer Active Hope Benavidez MD PhD Active BACTRIM DS 800-160 MG ORAL TABLET 1 pill by mouth twice claudio y, for UTI SULFAMETHOXAZOLE-TRIMETHOPRIM 29356142889 No Longer Active Hope Benavidez MD PhD Active PROLIA 60 MG/ML SUBCUTANEOUS SOLUTION 1 shot every 6 months for osteoprosis DENOSUMAB 77790973966 Active Hope Benavidez MD PhD Active CALCIUM + D + K 750-500-40 MG-UNT-MCG ORAL TABLET 1 tab by m outh twice daily CALCIUM-VITAMIN D-VITAMIN K 60831645655 Active Hope valdez MD PhD Active DAILY VALUE MULTIVITAMIN ORAL TABLET 1 tab by mouth twice daily 201 05/16/14 MULTIPLE VITAMIN 64702144897 Active Hope Benavidez MD PhD Acti ve FISH OIL 306 MG CAPS 1 tab by mouth three times daily OMEGA-3 FATTY ACIDS 65493971143 Active Hope Benavidez MD PhD Active LUTEIN 10 MG ORAL TABLET 1 tab daily LUTEIN 71839836 408 Active Hope Benavidez MD PhD Active TRIAMTERENE-HCTZ 37.5-25 MG ORAL TABLET 1 tab by mouth daily 10/22 TRIAMTERENE-HCTZ 24903615603 Active Kylie Holt APRN Active CYCLOBENZAPRINE HCL 10 MG ORAL TABLET 1 tablet by mout h three times daily as needed for headaches CYCLOBENZAPRINE HCL 12193575922 No Longer Active Adam Yates MD Active OMEPRAZOLE 20 MG ORAL CAPSULE DELAYED RELEASE 1 tablet by mo uth daily for GERD OMEPRAZOLE 91911267276 No Longer Active Adam Yates MD Active ZOFRAN 8 MG ORAL TABLET 1 tab by mouth every 12 hours prn 4 ONDANSETRON HCL 97007526897 No Longer Active Adam Yates MD Active PHENADOZ 25 MG RECTAL SUPPOSITORY 1 every 4 hrs. PRN 2 PROMETHAZINE HCL 94831264488 No Longer Active Adam Yates MD A ctive POTASSIUM CHLORIDE 20 MEQ ORAL PACKET by mouth twice a day prn 2 POTASSIUM CHLORIDE 27137960810 No Longer Active Adam Carpenter MD Active PROMETHAZINE HCL 25 MG ORAL TABLET 1 Q. 4 hr. PRN PROMETHAZINE HCL 27080114859 No Longer Active Adam Yates MD Active INNOPRAN XL 120 MG ORAL CAPSULE EXTENDED RELEASE 24 HO UR Take one by mouth daily PROPRANOLOL HCL SR BEADS 23592630841 No Longer Active Adam Yates MD Active FLAGYL 500 MG ORAL TABLET 1 pill by mouth three times daily, for diarrhea METRONIDAZOLE 65328029948 No Longer Active Hope landers MD PhD Active DYAZIDE 37.5-25 MG ORAL CAPSULE 1 qd TRIA MTERENE-HCTZ 12119954322 No Longer Active Hope Benavidez MD PhD Active PROZAC 20 MG ORAL CAPSULE 1 q d FLUOXETINE HCL 19461655311 No Longer Active Hope Benavidez MD PhD Active SIMVASTATIN 40 MG ORAL TABLET 1 qd SIMVAS TATIN 36745408508 No Longer Active Adam Yates MD Active MELOXICAM 15 MG ORAL TABLET 1 qd MELOXICAM 37515830375 No Longer Active Adam Yates MD Active EXCEDRIN EXTRA STRENGTH 250-250-65 MG ORAL TABLET 1-2 q6h ME N headache [id number]-ZUQVFUCGIXHIN-XKNDQGER 39740511457 Active Hope Benavidez MD PhD Active FLAGYL 500 MG ORAL TABLET 1 qid METRONIDAZOL E 47321899720 No Longer Active Adam Yates MD Active LEVAQUIN 750 MG ORAL TABLET 1 qd LEVOFLOXAC IN 87610435082 No Longer Active Adam Yates MD Active ADULT ASPIRIN LOW STRENGTH 81 MG ORAL TABLET DISINTEGRATING 1 qd ASPIRIN 64247603976 Active Hope Benavidez MD PhD Active LEVAQUIN 750 MG ORAL TABLET 1 qd LEVAQUIN 750 MG ORAL TABLET 094976 LEVOFLOXACIN Inactive FLAGYL 500 MG ORAL TABLET 1 qid FLAGYL 500 MG ORAL TABLET 293236 METRONIDAZOLE Inactive MELOXICAM 15 MG ORAL TABLET 1 qd MELOXICAM 15 MG ORAL TABLET 736528 MELOXICAM Inactive SIMVASTATIN 40 MG ORAL TABLET 1 qd SIMVASTATIN 40 MG ORAL TABLET 257968 SIMVASTATIN Inactive PROZAC 20 MG ORAL CAPSULE 1 q d PROZAC 20 MG ORAL CAPSULE 710933 FLUOXETINE HCL Inactive DYAZIDE 37.5-25 MG ORAL CAPSULE 1 qd 5 DYAZIDE 37.5-25 MG ORAL CAPSULE 889933 TRIAMTERENE-HCTZ Inactive INNOPRAN XL 120 MG ORAL CAPSULE EXTENDED RELEASE 24 HO UR Take one by mouth daily INNOPRAN XL 120 MG ORAL CAPSULE EXTENDED RELEASE 24 HOUR PROPRANOLOL HCL SR BEADS Inactive PROMETHAZINE HCL 25 MG ORAL TABLET 1 Q. 4 hr. PRN 2013 PROMETHAZINE HCL 25 MG ORAL TABLET 845083 PROMETHAZINE HCL Inactive POTASSIUM CHLORIDE 20 MEQ ORAL PACKET by mouth twice a day prn 2 POTASSIUM CHLORIDE 20 MEQ ORAL PACKET 2125826 POTASSIUM CHLORIDE Inactive PHENADOZ 25 MG RECTAL SUPPOSITORY 1 every 4 hrs. PRN 2 PHENADOZ 25 MG RECTAL SUPPOSITORY 748508 PROMETHAZINE HCL Inactive ZOFRAN 8 MG ORAL TABLET 1 tab by mouth every 12 hours prn 4 ZOFRAN 8 MG ORAL TABLET 173395 ONDANSETRON HCL Inactive OMEPRAZOLE 20 MG ORAL CAPSULE DELAYED RELEASE 1 tablet by mo [facility] daily for GERD OMEPRAZOLE 20 MG ORAL CAPSULE DELAYED RELEASE 19 8051 OMEPRAZOLE Inactive CYCLOBENZAPRINE HCL 10 MG ORAL TABLET 1 tablet by mout h three times daily as needed for headaches CYCLOBENZAPRINE HCL 10 MG ORAL TABLET 196898 CYCLOBENZAPRINE HCL Inactive VITAMIN D3 4000 IU 1 tab 3 times daily VITAMIN D3 4000 IU Inactive PROPRANOLOL HCL 80 MG ORAL TABLET 1 tab tue. and thur. PROPRANOLOL HCL 80 MG ORAL TABLET 136843 PROPRANOLOL HCL Inacti ve CYANOCOBALAMIN 1000 MCG/ML INJECTION SOLUTION 1 injection ev ruben 2 weeks CYANOCOBALAMIN 1000 MCG/ML INJECTION SOLUTION 30 9594 CYANOCOBALAMIN Inactive MAGNESIUM GLUCONATE 250 MG ORAL TABLET 1 tab tid 23/10/23 MAGNESIUM GLUCONATE 250 MG ORAL TABLET 631978 MAGNESIUM GLUCONATE Inactive LOMOTIL 2.5-0.025 MG ORAL TABLET 1 tab by mouth prn 23/10/23 LOMOTIL 2.5-0.025 MG ORAL TABLET 8806452 DIPHENOXYLATE-ATROPINE Inac tive FLORANEX ORAL PACKET 1 pack three times daily, for bowel health FLORANEX ORAL PACKET 66305876513 LACTOBACILLUS Inactive IRON 325 (65 Fe) MG ORAL TABLET 1 every other day 2015 IRON 325 (65 Fe) MG ORAL TABLET 328363 FERROUS SULFATE Inactive FLAGYL 500 MG ORAL TABLET 1 pill by mouth three times daily, for diarrhea FLAGYL 500 MG ORAL TABLET 956865 METRONIDAZOLE I nactive BACTRIM DS 800-160 MG ORAL TABLET 1 pill by mouth twice claudio y, for UTI BACTRIM DS 800-160 MG ORAL TABLET 541912 SULFAMETHOXAZOLE-TRIMETHOPRIM Inactive Advance Directives Directive Description Start [...] m g/g{creat} 0-29 sodium, serum 138 mmol/L 083-340 5771/12/15 potassium, serum 4.0 mmol/L 3.5-5.2 chloride, serum [...] - Chem istry sodium, serum 142 mmol/L 987-423 0763/04/19 carbon dioxide, venous blood 30.2 mmol/L 21.0-32 [...] mg/dL Encounters Code Encounter Date Provider Facility CPT-86490 [id number] Vst-Est Level III 14:29:19 CDT Fiorella Holt [facility] [place] CPT-39929 Level 2 Est. Patient 14:58:26 CDT Kylie Lund [facility] [place] CPT-56360 Level 3 Est. Patient 08:15:24 ANNEALER Kylie Lund [facility] [place] CPT-24069 Level 2 Est. Patient 14:27:16 ANNEALER Kylie Lund [facility] [place] CPT-35123 Level 3 Est. Patient 17:54:48 CDT Kylie Lund [facility] [place] CPT-18791 Level 3 Est. Patient 16:26:30 CDT Kinachrista blackmon [facility] CPT-61220 Level 3 New Patient 16:22:01 ANNEALER Adam Yates MD [facility] CPT-97877 Level 4 Est. Patient 17:00:48 CDT Kylie Lund [facility] [place] CPT-69818 Level 3 Est. Patient 13:15:54 CDT Kylie Escalonagabbi [facility] CPT-43685 Level 3 Est. Patient 09:10:11 CDT Kylie Escalonagabbi [facility] CPT-38661 Level 4 Est. Patient 12:08:30 ANNEALER Hope cohn MD PhD [facility] CPT-12618 Level 4 Est. Patient 19:08:42 ANNEALER Hope cohn MD PhD [facility] CPT-92658 Level 4 Est. Patient 20:04:51 CDT Hope cohn MD PhD [facility] CPT-39637 Level 3 New Patient 01:46:11 ANNEALER Hope landers MD PhD [facility] Procedures Code Procedure Name Date Entry Date Standard Desc ription CPT-G0439 Subsequent Annual Wellness Exam 14:29:19 CDT CPT-13503 Venipuncture Draw Fee 10:59:04 CDT CPT-00010 CMP - LAB USE ONLY 10:59:04 CDT CPT-18311 CBC with Diff - LAB USE ONLY 10:59:03 CDT 2 CPT-J0897 Prolia 60 mg 15:46:54 ANNEALER CPT-47061 Abx/Therapy Injection 15:46:54 ANNEALER CPT-32189 Microalbumin - LAB USE ONLY 09:41:32 ANNEALER 20 23/01/15 CPT-74619 Free T4 - LAB USE ONLY 09:41:32 ANNEALER CPT-66777 TSH - LAB USE ONLY 09:41:32 ANNEALER CPT-44142 BMP - LAB USE ONLY 09:41:32 ANNEALER CPT-35167 Venipuncture Draw Fee 09:41:32 ANNEALER CPT-90963 First Vx - Ix admin for Medicare patients 11:19:30 CDT CPT-82067 Fluzone High-Dose Intramuscular Suspension 12/07 11:19:30 CDT CPT-J0897 Prolia 60 mg 14:55:42 CDT CPT-37848 Abx/Therapy Injection 14:55:42 CDT CPT-49252 Bone Density - XRAY USE ONLY 10:27:12 CDT 2 CPT-G0439 Subsequent Annual Wellness Exam 17:54:53 CDT CPT-38318 Foot, left, comp min 3V - XRAY USE ONLY 12:22:49 CDT CPT-G0009 Administration of Pneumococcal Vaccine 3 12:18:00 CDT CPT-10110 Pneumovax 23 Injection Injectable 25 MCG /0.5ML 12:18:00 CDT CPT-J0897 Prolia 60 mg 14:14:16 ANNEALER CPT-38062 Abx/Therapy Injection 14:14:15 ANNEALER CPT-46891 Lipid - LAB USE ONLY 10:01:52 ANNEALER 2 CPT-00738 Calcium - LAB USE ONLY 10:01:51 ANNEALER CPT-24167 Venipuncture Draw Fee 10:01:51 ANNEALER CPT-LR Lesion Removal 16:22:01 ANNEALER CPT-27614 TSH - LAB USE ONLY 14:26:02 CDT CPT-38273 CMP - LAB USE ONLY 14:26:01 CDT CPT-38745 CBC with Diff - LAB USE ONLY 14:26:01 CDT 2 CPT-29300 Venipuncture Draw Fee 14:26:01 CDT CPT-61896 First Vx - Ix admin for Medicare patients 13:27:08 CDT CPT-50749 Fluzone High-Dose Intramuscular Suspension 11/26 13:27:08 CDT CPT-G0438 Initial Annual Wellness Exam 14:19:57 CD T CPT-G0009 Administration of Pneumococcal Vaccine 9 11:36:25 CDT CPT-00541 Prevnar 13 Intramuscular Suspension 1 1:36:25 CDT CPT-95848 Prevnar 13 Intramuscular Suspension 1 0:40:58 CDT CPT-J0897 Prolia 60 mg 10:37:16 CDT CPT-66868 Abx/Therapy Injection 10:37:16 CDT CPT-J0897 Prolia 60 mg 16:09:34 ANNEALER CPT-J0897 Prolia 60 mg 11:10:35 ANNEALER CPT-88438 Abx/Therapy Injection 11:10:35 ANNEALER CPT-000 Give Appropriate Flu Vaccine 17:01:15 ANNEALER 2 CPT-41078 Fluzone High Dose (65+) 15:03:08 ANNEALER 02/15 CPT-53508 Immunization Single Admin 15:03:08 ANNEALER 2014 CPT-OV Office Visit 15:58:06 CDT CPT-J0897 Prolia 60 mg 08:45:38 CDT CPT-88193 Abx/Therapy Injection 08:45:38 CDT CPT-J3420 Vitamin B12 1000mcg (Cyanocobalamin) 09:26:20 ANNEALER CPT-04088 Abx/Therapy Injection 09:26:20 ANNEALER CPT-J3420 Vitamin B12 1000mcg (Cyanocobalamin) 09:44:40 ANNEALER CPT-45125 Abx/Therapy Injection 09:44:40 ANNEALER CPT-J3420 Vitamin B12 1000mcg (Cyanocobalamin) 09:15:54 ANNEALER CPT-25351 Abx/Therapy Injection 09:15:54 ANNEALER CPT-J3420 Vitamin B12 1000mcg (Cyanocobalamin) 09:46:44 ANNEALER CPT-53016 Abx/Therapy Injection 09:46:44 ANNEALER CPT-J3420 Vitamin B12 1000mcg (Cyanocobalamin) 09:47:34 ANNEALER CPT-48175 Abx/Therapy Injection 09:47:34 ANNEALER CPT-J3420 Vitamin B12 1000mcg (Cyanocobalamin) 14:35:50 ANNEALER CPT-J3420 Vitamin B12 1000mcg (Cyanocobalamin) 09:25:05 ANNEALER CPT-03297 Abx/Therapy Injection 09:25:05 ANNEALER CPT-G0008 Administration of Influenza Virus Vaccine 13:36:47 CDT CPT-55200 Fluzone High-Dose Intramuscular Suspension 11/15 13:36:47 CDT CPT-J0897 Prolia 60 mg 08:50:41 CDT CPT-85945 Abx/Therapy Injection 08:50:41 CDT CPT-59149 Bone Density 12:06:12 CDT CPT-01643 Bone Density 08:54:40 CDT CPT-OV Office Visit 15:37:02 CDT CPT-89312 Postop F/U Visit 15:47:49 CDT CPT-65073 Postop F/U Visit 15:21:02 CDT CPT-TCM Transitional Care Mgmt-High 07:52:27 CDT 20 20/06/01 CPT-03019 Venipuncture Draw Fee 13:51:18 CDT CPT-00540 Venipuncture Draw Fee 10:14:55 ANNEALER CPT-00978 Venipuncture Draw Fee 13:39:45 ANNEALER CPT-OV Office Visit 15:11:22 ANNEALER CPT-67653 Venipuncture Draw Fee 09:20:49 ANNEALER CPT-82573 Venipuncture Draw Fee 16:52:15 ANNEALER CPT-69345 Venipuncture Draw Fee 10:37:24 ANNEALER CPT-03098 Venipuncture Draw Fee 08:21:21 ANNEALER CPT-22929 Venipuncture Draw Fee 08:30:20 ANNEALER CPT-60621 Venipuncture Draw Fee 14:53:21 ANNEALER CPT-37656 Venipuncture Draw Fee 09:40:56 ANNEALER CPT-39560 Venipuncture Draw Fee 10:30:47 ANNEALER CPT-50680 Venipuncture Draw Fee 10:46:17 ANNEALER CPT-46355 Venipuncture Draw Fee 11:12:45 ANNEALER CPT-15312 Venipuncture Draw Fee 09:53:33 ANNEALER CPT-30317 Venipuncture Draw Fee 11:53:51 ANNEALER CPT-50205 Venipuncture Draw Fee 10:33:50 ANNEALER CPT-64818 Venipuncture Draw Fee 10:05:01 ANNEALER CPT-34007 Venipuncture Draw Fee 14:32:52 ANNEALER CPT-73350 Venipuncture Draw Fee 09:46:13 ANNEALER CPT-57531 Venipuncture Draw Fee 11:34:27 ANNEALER CPT-15266 Venipuncture Draw Fee 13:17:16 ANNEALER CPT-53112 Venipuncture Draw Fee 12:05:39 CDT CPT-62338 Venipuncture Draw Fee 12:49:12 CDT CPT-75930 Venipuncture Draw Fee 12:37:18 CDT CPT-45625 Venipuncture Draw Fee 10:57:11 CDT CPT-02695 Venipuncture Draw Fee 13:47:40 CDT CPT-86049 Venipuncture Draw Fee 10:02:17 CDT CPT-85120 TB Tubersol 17:32:32 CDT CPT-OV Office Visit 16:21:53 CDT CPT-OV Office Visit 15:49:22 CDT CPT-OV Office Visit 17:16:31 CDT CPT-OV Office Visit 10:43:31 CDT
--- OUTSIDE RECORDS SUMMARY | 2019-02-09 12:49 | XMS REPORT | Clinical Summary ---
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 Active Kelsy Mckeon A Carcinoma in situ of breast ADENOCARCINOMA, ASCENDING [...] colon Sebaceous cyst, scalp 706.2 Active Hope Beanvidez MD PhD Sebaceous cyst ABDOMINAL PAIN, RIGHT [...] ADENOCARCINOMA, COLON, 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 Dick Yates MD Aftercare following surgery of the teeth,oral cavity a nd digestive system, NEC ICD-V58.75 Bam Yates MD Asymptomatic postmenopausal status (age-related) (natural) I CD-V49.81 Inactive Hope Benavidez MD PhD Dysuria ICD-788.1 Inactive Hope Benavidez MD PhD 201 05/19/01 Weakness ICD-780.79 Inactive Hope Benavidez MD P Colon cancer ICD-153.9 Inactive Adam luna MD Medication List Medication Instructions Start Date Stop Date Generic Name NDC Status Provider Patient Instruction PROPRANOLOL HCL 80 MG TABS 1 tab tue. and thur. 04/10 PROPRANOLOL HCL [id number] No Longer Active Hope Benavidez MD PhD A ctive IRON 325 (65 FE) MG TABS 1 every other day FERROUS SULFATE 51618896833 Active Hope Benavidez MD PhD Active VITAMIN D3 4000 IU 1 tab 3 times daily VITAMIN D3 4000 IU No Longer Active Hope Benavidez MD PhD Active CYANOCOBALAMIN 1000 MCG/ML INJ SOLN 1 injection every 2 weeks 01/09 CYANOCOBALAMIN 32969434424 Active Laura Elder Active BACTRIM DS 800-160 MG TABS 1 pill by mouth twice daily, for UTI SULFAMETHOXAZOLE-TRIMETHOPRIM 71816743817 No Longer Active A attila Benavidez MD PhD Active PROLIA 60 MG/ML SOLN 1 shot every 6 months for osteoprosis DENOSUMAB 69363712182 Active Hope Benavidez MD PhD Active CALCIUM + D + K 750-500-40 MG-UNT-MCG TABS 1 tab by mouth tw ice daily CALCIUM-VITAMIN D-VITAMIN K 41003118604 Active Hope landers MD PhD Active DAILY VALUE MULTIVITAMIN TABS 1 tab by mouth twice daily MULTIPLE VITAMIN 87978566401 Active Hope Benavidez MD PhD Active FISH OIL 306 MG CAPS 1 tab by mouth three times daily OMEGA-3 FATTY ACIDS 05469859581 Active Hope Benavidez MD PhD Active LUTEIN 10 MG TABS 1 tab daily LUTEIN 94298666329 Act cash Hope Benavidez MD PhD Active FLORANEX PACK 1 pack three times daily, for bowel health LACTOBACILLUS 42319453370 Active Hope Benavidez MD PhD Active LOMOTIL 2.5-0.025 MG TABS 1 tab by mouth prn DIPHENOXYLATE-ATROPINE 87053546344 Active Hope Benavidez MD PhD Active TRIAMTERENE-HCTZ 37.5-25 MG TABS 1 tab by mouth daily TRIAMTERENE-HCTZ 38459895058 Active Hope Benavidez MD PhD Acti ve MAGNESIUM GLUCONATE 250 MG TABS 1 tab tid MAGN ESIUM GLUCONATE 56619168518 Active Adam Yates MD Active ATENOLOL 50 MG TABS 1/2 tab q other day m-w-f ATE NOLOL 68608551437 Active Hope Benavidez MD PhD Active CYCLOBENZAPRINE HCL 10 MG TABS 1 tablet by mouth three times daily as needed for headaches CYCLOBENZAPRINE HCL 46608706290 No Longe r Active Adam Yates MD Active OMEPRAZOLE 20 MG CPDR 1 tablet by mouth daily for GERD OMEPRAZOLE 12389497344 No Longer Active Adam Yates MD A ctive ZOFRAN 8 MG TABS 1 tab by mouth every 12 hours prn 201 05/16/09 ONDANSETRON HCL 75587717656 No Longer Active Adam Yates MD Active PHENADOZ 25 MG SUPP 1 every 4 hrs. PRN PROMETHA ZINE HCL 02678143906 No Longer Active Adam Yates MD Active POTASSIUM CHLORIDE 20 MEQ PACK by mouth twice a day prn POTASSIUM CHLORIDE 32826861019 No Longer Active Adam Yates MD Active PROMETHAZINE HCL 25 MG TABS 1 Q. 4 hr. PRN PROM ETHAZINE HCL 99816723842 No Longer Active Adam Yates MD Active INNOPRAN XL 120 MG [id number] Take one by mouth daily 2 PROPRANOLOL HCL SR BEADS 42036942439 No Longer Active Adam Yates MD A ctive FLAGYL 500 MG TABS 1 pill by mouth three times daily, for diarrh ea METRONIDAZOLE 70802861677 No Longer Active Hope Benavidez MD PhD Active DYAZIDE 37.5-25 MG CAPS 1 qd TRIAMTERENE-HC TZ 15620986638 No Longer Active Hope Benavidez MD PhD Active PROZAC 20 MG CAPS 1 q d FLUOXETINE HCL 81812 257044 No Longer Active Hope Benavidez MD PhD Active SIMVASTATIN 40 MG TABS 1 qd SIMVASTATIN 004 93443133 No Longer Active Adam Yates MD Active MELOXICAM 15 MG TABS 1 qd MELOXICAM 9705886 5292 No Longer Active Adam Yates MD Active IMODIUM A-D 2 MG TABS 2 onset at diarrhea and prn. LOPERAMIDE HCL 32256921392 Active Hope Benavidez MD PhD Active EXCEDRIN EXTRA STRENGTH 250-250-65 MG TABS 1-2 q6h PRN headache 201 04/16/21 [id number] 87850888121 Active Hope Benavidez MD PhD Active FLAGYL 500 MG TABS 1 qid METRONIDAZOLE 81902 960766 No Longer Active Adam Yates MD Active LEVAQUIN 750 MG TABS 1 qd LEVOFLOXACIN 5486 1634143 No Longer Active Adam Yates MD Active ADULT ASPIRIN LOW STRENGTH 81 MG TBDP 1 qd A SPIRIN 81427620452 Active Hope Benavidez MD PhD Active LEVAQUIN 750 MG TABS 1 qd LEVAQUIN 750 MG T ABS 089111 LEVOFLOXACIN Inactive FLAGYL 500 MG TABS 1 qid FLAGYL 500 MG TABS 686070 METRONIDAZOLE Inactive MELOXICAM 15 MG TABS 1 qd MELOXICAM 15 MG T ABS 714404 MELOXICAM Inactive SIMVASTATIN 40 MG TABS 1 qd SIMVASTATIN 40 MG TABS 610852 SIMVASTATIN Inactive PROZAC 20 MG CAPS 1 q d PROZAC 20 MG CAPS 31 0385 FLUOXETINE HCL Inactive DYAZIDE 37.5-25 MG CAPS 1 qd DYAZIDE 37.5 -25 MG CAPS 604071 TRIAMTERENE-HCTZ Inactive INNOPRAN XL 120 MG [id number] Take one by mouth daily 2 INNOPRAN XL 120 MG [id number] PROPRANOLOL HCL SR BEADS Inactive PROMETHAZINE HCL 25 MG TABS 1 Q. 4 hr. PRN PROMETHAZINE HCL 25 MG TABS 847869 PROMETHAZINE HCL Inactive POTASSIUM CHLORIDE 20 MEQ PACK by mouth twice a day prn POTASSIUM CHLORIDE 20 MEQ PACK 699989 POTASSIUM CHLORIDE Inactive PHENADOZ 25 MG SUPP 1 every 4 hrs. PRN PHENADOZ 2 5 MG SUPP 559356 PROMETHAZINE HCL Inactive ZOFRAN 8 MG TABS 1 tab by mouth every 12 hours prn 201 05/16/09 ZOFRAN 8 MG TABS 082887 ONDANSETRON HCL Inactive OMEPRAZOLE 20 MG CPDR 1 tablet by mouth daily for GERD OMEPRAZOLE 20 MG CPDR 977193 OMEPRAZOLE Inactive CYCLOBENZAPRINE HCL 10 MG TABS 1 tablet by mouth three times daily as needed for headaches CYCLOBENZAPRINE HCL 10 MG TABS 122671 CYCLOBENZAPRINE HCL Inactive VITAMIN D3 4000 IU 1 tab 3 times daily VITAMIN D3 4000 IU Inactive PROPRANOLOL HCL 80 MG TABS 1 tab tue. and thur. 04/10 PROPRANOLOL HCL 80 MG TABS 077988 PROPRANOLOL HCL Inactive FLAGYL 500 MG TABS 1 pill by mouth three times daily, for diarrh ea FLAGYL 500 MG TABS 296382 METRONIDAZOLE Inactive BACTRIM DS 800-160 MG TABS [...] Range Description Chart Maintenance: labs added to [facility] - Chemistry magnesium, serum 2.0 mg/dL Chart Maintenance: Outside labs entered on [employer] - Chemistry sodium, serum 139 mmol/L potassium, serum 3.9 mmol/L blood glucose 85 mg/dL creatinine, serum 1.26 mg/dL aspartate aminotransferase (SGOT), serum 33 U/L alanine aminotransferase (SGPT), serum 44 U/L alkaline phosphatase, serum 127 U/L Chart Maintenance: Outside labs entered on [employer] - Hematology leukocyte count, blood 4.6 10*3/mm3 hemoglobin, blood 13.6 g/dL platelet count 162 10*3/mm3 Lab Report: Basic Metabolic Panel - Chem istry blood glucose 79 mg/dL 65-110 calcium, serum 8.7 mg/dL 8.5-10.1 urea nitrogen, blood 11 mg/dL 7-18 creatinine, serum 1.10 mg/dL 0.60-1.30 sodium, serum 136 mmol/L 295-587 7140/05/02 potassium, serum 4.1 mmol/L 3.5-5.2 chloride, serum 99 mmol/L 98-107 carbon dioxide, venous blood 30.7 mmol/L 21.0-32 .0 Lab Report: BMP - Chemistry sodium, serum 141 mmol/L potassium, serum 4.2 mmol/L blood glucose 66 mg/dL creatinine, serum 1.16 mg/dL Lab Report: [facility] W/ DIFF, [facility] - Chemistry sodium, serum 137 mmol/L potassium, serum 3.8 mmol/L blood glucose 79 mg/dL creatinine, serum 1.02 mg/dL magnesium, serum 1.2 mg/dL Lab Report: CBC W/ DIFF, [facility], AN AEROBIC CX - Hematology leukocyte count, blood 8.7 10*3/mm3 hemoglobin, blood 10.8 g/dL platelet count 319 10*3/mm3 Lab Report: CBC W/DIFF, Comp. Metabolic Panel - Chemistry sodium, serum 138 mmol/L 855-045 9261/08/14 potassium, serum 4.0 mmol/L 3.5-5.2 chloride, serum [...] 0.40 mg/dL 0.00-1.00 sodium, serum 136 mmol/L 354-873 6028/04/03 potassium, serum 3.7 mmol/L 3.5-5.2 chloride, serum [...] 0.40 mg/dL 0.00-1.00 sodium, serum 145 mmol/L 719-083 8506/02/02 potassium, serum 4.2 mmol/L 3.5-5.2 chloride, serum [...] 11 .6-14.8 platelet count 155 10^3/MM^3 10*3/mm3 219-896 2874/04/03 erythrocyte (RBC) count 2.46 10^6/MM^3 10*6/mm3 4.04-5.4 8 hemoglobin, blood 8.7 g/dL 12.0-16.0 hematocrit, blood 26.1 % 36.0-46.0 mean corpuscular volume, RBC 106 fL 80-97 mean corpuscular hemoglobin, RBC 35.4 pg 27. 0-31.2 mean corpuscular hemoglobin concentration, RBC 33.3 G/DL % 31.8-35.4 red blood cell distribution width 15.4 % 11 .6-14.8 platelet count 246 10^3/MM^3 10*3/mm3 774-898 1259/08/14 leukocyte count, blood 5.8 10^3/MM^3 10*3/mm3 4.6-10.2 [...] 11 .6-14.8 platelet count 193 10^3/MM^3 10*3/mm3 821-005 1771/04/03 lymphocytes as percent of blood leukocytes 21.8 [...] Panel - Chemistry cholesterol, serum 209 mg/dL 082-893 1633/09/11 triglyceride, serum, fasting 113 mg/dL 30-200 HDL [...] ative glucose, urine, semiquantitative Negative Neg ative urine color Yellow Colorless;Lightyellow;St raw;Yellow specific gravity, urine 1.020 1.000-1.030 pH, urine, semiquantitative 7.0 5.0-8.5 appearance, urine SlCloudy Clear ketones, urine, by test strip Negative Negati ve bilirubin, urine Negative Negative Lab Report: VITAMIN D, 25-HYDROXY/65519, MAGNESIUM/622 - Chemistry vitamin D 25-hydroxy, serum 41 ng/mL 30-100 Encounters Code Encounter Date Provider Facility CPT-56442 Level 4 Est. Patient 12:08:30 TYPEWRITER REPAIRER Hope cohn MD PhD [facility] CPT-12266 Level 4 Est. Patient 19:08:42 TYPEWRITER REPAIRER Hope cohn MD PhD [facility] CPT-17974 Level 4 Est. Patient 20:04:51 CDT Hope cohn MD PhD [facility] CPT-50677 Level 3 New Patient 01:46:11 TYPEWRITER REPAIRER Hope landers MD PhD [facility] Procedures Code Procedure Name Date Entry Date Standard Desc ription CPT-J3420 Vitamin B12 1000mcg (Cyanocobalamin) 09:26:20 TYPEWRITER REPAIRER CPT-91619 Abx/Therapy Injection 09:26:20 TYPEWRITER REPAIRER CPT-J3420 Vitamin B12 1000mcg (Cyanocobalamin) 09:44:40 TYPEWRITER REPAIRER CPT-40719 Abx/Therapy Injection 09:44:40 TYPEWRITER REPAIRER CPT-J3420 Vitamin B12 1000mcg (Cyanocobalamin) 09:15:54 TYPEWRITER REPAIRER CPT-67878 Abx/Therapy Injection 09:15:54 TYPEWRITER REPAIRER CPT-J3420 Vitamin B12 1000mcg (Cyanocobalamin) 09:46:44 TYPEWRITER REPAIRER CPT-11610 Abx/Therapy Injection 09:46:44 TYPEWRITER REPAIRER CPT-J3420 Vitamin B12 1000mcg (Cyanocobalamin) 09:47:34 TYPEWRITER REPAIRER CPT-02650 Abx/Therapy Injection 09:47:34 TYPEWRITER REPAIRER CPT-J3420 Vitamin B12 1000mcg (Cyanocobalamin) 14:35:50 TYPEWRITER REPAIRER CPT-J3420 Vitamin B12 1000mcg (Cyanocobalamin) 09:25:05 TYPEWRITER REPAIRER CPT-86689 Abx/Therapy Injection 09:25:05 TYPEWRITER REPAIRER CPT-G0008 Administration of Influenza Virus Vaccine 13:36:47 CDT CPT-49412 Fluzone High-Dose Intramuscular Suspension 11/15 13:36:47 CDT CPT-J0897 Prolia 60 mg 08:50:41 CDT CPT-04738 Abx/Therapy Injection 08:50:41 CDT CPT-67212 Bone Density 12:06:12 CDT CPT-02922 Bone Density 08:54:40 CDT CPT-OV Office Visit 15:37:02 CDT CPT-85938 Postop F/U Visit 15:47:49 CDT CPT-17119 Postop F/U Visit 15:21:02 CDT CPT-TCMH Transitional Care Mgmt-High 07:52:27 CDT 20 20/06/01 CPT-77693 Venipuncture Draw Fee 13:51:18 CDT CPT-12241 Venipuncture Draw Fee 10:14:55 TYPEWRITER REPAIRER CPT-65356 Venipuncture Draw Fee 13:39:45 TYPEWRITER REPAIRER CPT-OV Office Visit 15:11:22 TYPEWRITER REPAIRER CPT-45004 Venipuncture Draw Fee 09:20:49 TYPEWRITER REPAIRER CPT-78002 Venipuncture Draw Fee 16:52:15 TYPEWRITER REPAIRER CPT-31102 Venipuncture Draw Fee 10:37:24 TYPEWRITER REPAIRER CPT-12054 Venipuncture Draw Fee 08:21:21 TYPEWRITER REPAIRER CPT-64582 Venipuncture Draw Fee 08:30:20 TYPEWRITER REPAIRER CPT-85163 Venipuncture Draw Fee 14:53:21 TYPEWRITER REPAIRER CPT-60648 Venipuncture Draw Fee 09:40:56 TYPEWRITER REPAIRER CPT-30512 Venipuncture Draw Fee 10:30:47 TYPEWRITER REPAIRER CPT-88766 Venipuncture Draw Fee 10:46:17 TYPEWRITER REPAIRER CPT-55695 Venipuncture Draw Fee 11:12:45 TYPEWRITER REPAIRER CPT-21616 Venipuncture Draw Fee 09:53:33 TYPEWRITER REPAIRER CPT-71144 Venipuncture Draw Fee 11:53:51 TYPEWRITER REPAIRER CPT-99572 Venipuncture Draw Fee 10:33:50 TYPEWRITER REPAIRER CPT-00574 Venipuncture Draw Fee 10:05:01 TYPEWRITER REPAIRER CPT-10009 Venipuncture Draw Fee 14:32:52 TYPEWRITER REPAIRER CPT-14661 Venipuncture Draw Fee 09:46:13 TYPEWRITER REPAIRER CPT-63338 Venipuncture Draw Fee 11:34:27 TYPEWRITER REPAIRER CPT-41414 Venipuncture Draw Fee 13:17:16 TYPEWRITER REPAIRER CPT-75895 Venipuncture Draw Fee 12:05:39 CDT CPT-73033 Venipuncture Draw Fee 12:49:12 CDT CPT-40523 Venipuncture Draw Fee 12:37:18 CDT CPT-33092 Venipuncture Draw Fee 10:57:11 CDT CPT-15266 Venipuncture Draw Fee 13:47:40 CDT CPT-43002 Venipuncture Draw Fee 10:02:17 CDT CPT-04115 TB Tubersol 17:32:32 CDT CPT-OV Office Visit 16:21:53 CDT CPT-OV Office Visit 15:49:22 CDT CPT-OV Office Visit 17:16:31 CDT CPT-OV Office Visit 10:43:31 CDT
--- OUTSIDE RECORDS SUMMARY | 2019-02-09 12:49 | XMS REPORT | Clinical Summary ---
Author Author Admin, Florecita Munoz Organization [facility] [employer] Address Unknown Phone Unavailable Allergies, Adverse [...] Sebaceous cyst, scalp 706.2 Resolved Kylie Holt POST TRONIC MACHINE OPERATOR Sebaceous cyst Cervical lymphadenopathy, anterior, left 785.6 Resolv ed Kylie Holt POST TRONIC MACHINE OPERATOR Enlargement of lymph nodes Need for prophylactic vaccination and inoculation against in fluenza V04.81 Active Citlaly Watkins RMA Need for prophylactic vaccination and inoculation against influenza Preventive health care V70.0 Active Kylie Holt POST TRONIC MACHINE OPERATOR Routine general medical examination at a health care facility Thyroid nodule, left 241.0 Active Kylie Gonzalez PRN Nontoxic uninodular goiter Screening mammogram V76.12 Active Kylie MEEK RN Other screening mammogram ABDOMINAL PAIN, RIGHT LOWER QUADRANT ICD-789.03 Inactive Kina Joshua POST TRONIC MACHINE OPERATOR ADENOCARCINOMA, COLON, 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 Dick Yates MD ABDOMINAL PAIN, GENERALIZED ICD-789.07 Inactive Hope Benavidez MD PhD FEVER UNSPECIFIED ICD-780.60 Inactive Hope cohn MD PhD UNSPECIFIED VENOUS INSUFFICIENCY ICD-459.81 Elda ctive Adam Yates MD ADENOCARCINOMA, 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 Inac tive Hope Benavidez MD PhD Hyperkalemia ICD-276.7 Inactive Hope Benavidez MD PhD GERD ICD-530.81 Inactive Kylie Holt POST TRONIC MACHINE OPERATOR 2015 Health maintenance exam ICD-V70.0 Bam Yates MD Anemia ICD-285.9 Inactive Kylie Holt POST TRONIC MACHINE OPERATOR 07/24 Weakness ICD-780.79 Inactive Hope Benavidez MD P hD Aftercare following surgery of the teeth,oral cavity a nd digestive system, NEC ICD-V58.75 Inactive Adam Yates MD Colon cancer ICD-153.9 Inactive Adam luna MD Asymptomatic postmenopausal status (age-related) (natural) I CD-V49.81 Inactive Hope Benavidez MD PhD Dysuria ICD-788.1 Inactive Hope Benavidez MD PhD 201 05/19/01 Sebaceous cyst, scalp ICD-706.2 Inactive Tracy Holt POST TRONIC MACHINE OPERATOR Cervical lymphadenopathy, anterior, left ICD-785.6 Inactive Kylie Holt POST TRONIC MACHINE OPERATOR Medication List Medication Instructions Start Date Stop Date Generic Name NDC Status Provider Patient Instruction VITAMIN D3 2000 UNIT ORAL CAPS Melaleuca-One daily CHOLECALCIFEROL 65003603823 Active Kylie Lundum POST TRONIC MACHINE OPERATOR Active PROBIOTIC DAILY ORAL CAPS Take one daily PROBIOTIC PRODUCT 78143626759 Active Kylie Lundum POST TRONIC MACHINE OPERATOR Active IRON 325 (65 FE) MG TABS 1 every other day FERR OUS SULFATE 76049429689 No Longer Active Kylie Lundum POST TRONIC MACHINE OPERATOR Active FLORANEX PACK 1 pack three times daily, for bowel health LACTOBACILLUS 42020590848 No Longer Active Kylie Lundum POST TRONIC MACHINE OPERATOR Active LOMOTIL 2.5-0.025 MG TABS 1 tab by mouth prn 4 DIPHENOXYLATE-ATROPINE 24615337571 No Longer Active Kylie Yokum POST TRONIC MACHINE OPERATOR Active MAGNESIUM GLUCONATE 250 MG TABS 1 tab tid 4 MAGNESIUM GLUCONATE 61106644665 No Longer Active Kylie Yokum POST TRONIC MACHINE OPERATOR Active CYANOCOBALAMIN 1000 MCG/ML INJ SOLN 1 injection every 2 weeks 20 20/01/03 CYANOCOBALAMIN 23281069729 No Longer Active Kylie Yokum POST TRONIC MACHINE OPERATOR Active ATENOLOL 25 MG ORAL TABS 1/2 pill by mouth daily, for headac hes, blood pressure ATENOLOL 38474082161 Active Kylie Yokum POST TRONIC MACHINE OPERATOR Active PROPRANOLOL HCL 80 MG TABS 1 tab tue. and thur. 04/10 PROPRANOLOL HCL 39900653535 No Longer Active Hope Benavidez MD PhD A ctive VITAMIN D3 4000 IU 1 tab 3 times daily VITAMIN D3 4000 IU No Longer Active Hope Benavidez MD PhD Active BACTRIM DS 800-160 MG TABS 1 pill by mouth twice daily, for UTI SULFAMETHOXAZOLE-TRIMETHOPRIM 24713888355 No Longer Active A attila Benavidez MD PhD Active PROLIA 60 MG/ML SOLN 1 shot every 6 months for osteoprosis DENOSUMAB 58223799673 Active Hope Benavidez MD PhD Active CALCIUM + D + K 750-500-40 MG-UNT-MCG TABS 1 tab by mouth tw ice daily CALCIUM-VITAMIN D-VITAMIN K 77221379052 Active Hope landers MD PhD Active DAILY VALUE MULTIVITAMIN TABS 1 tab by mouth twice daily MULTIPLE VITAMIN 45867242537 Active Hope Benavidez MD PhD Active FISH OIL 306 MG CAPS 1 tab by mouth three times daily OMEGA-3 FATTY ACIDS 25425458054 Active Hope Benavidez MD PhD Active LUTEIN 10 MG TABS 1 tab daily LUTEIN 41322838700 Act cash Hope Benavidez MD PhD Active TRIAMTERENE-HCTZ 37.5-25 MG TABS 1 tab by mouth daily TRIAMTERENE-HCTZ 93759479161 Active Kylie Holt POST TRONIC MACHINE OPERATOR Active CYCLOBENZAPRINE HCL 10 MG TABS 1 tablet by mouth three times daily as needed for headaches CYCLOBENZAPRINE HCL 92372463607 No Longe r Active Adam Yates MD Active OMEPRAZOLE 20 MG CPDR 1 tablet by mouth daily for GERD OMEPRAZOLE 75300500204 No Longer Active Adam Yates MD A ctive ZOFRAN 8 MG TABS 1 tab by mouth every 12 hours prn 201 05/16/09 ONDANSETRON HCL 16185650934 No Longer Active Adam Yates MD Active PHENADOZ 25 MG SUPP 1 every 4 hrs. PRN PROMETHA ZINE HCL 78096199543 No Longer Active Adam Yates MD Active POTASSIUM CHLORIDE 20 MEQ PACK by mouth twice a day prn POTASSIUM CHLORIDE 08118626184 No Longer Active Adam Yates MD Active PROMETHAZINE HCL 25 MG TABS 1 Q. 4 hr. PRN PROM ETHAZINE HCL 22015664617 No Longer Active Adam Yates MD Active INNOPRAN XL 120 MG [id number] Take one by mouth daily 2 PROPRANOLOL HCL SR BEADS 55895724641 No Longer Active Adam Yates MD A ctive FLAGYL 500 MG TABS 1 pill by mouth three times daily, for diarrh ea METRONIDAZOLE 90643666113 No Longer Active Hope Benavidez MD PhD Active DYAZIDE 37.5-25 MG CAPS 1 qd TRIAMTERENE-HC TZ 44747315555 No Longer Active Hope Benavidez MD PhD Active PROZAC 20 MG CAPS 1 q d FLUOXETINE HCL 80279 969337 No Longer Active Hope Benavidez MD PhD Active SIMVASTATIN 40 MG TABS 1 qd SIMVASTATIN 004 60101013 No Longer Active Adam Yates MD Active MELOXICAM 15 MG TABS 1 qd MELOXICAM 1991879 1498 No Longer Active Adam Yates MD Active IMODIUM A-D 2 MG TABS 2 onset at diarrhea and prn. LOPERAMIDE HCL 05622147315 Active Hope Benavidez MD PhD Active EXCEDRIN EXTRA STRENGTH 250-250-65 MG TABS 1-2 q6h PRN headache 201 04/16/21 [id number] 50965915005 Active Hope Benavidez MD PhD Active FLAGYL 500 MG TABS 1 qid METRONIDAZOLE 44621 178415 No Longer Active Adam Yates MD Active LEVAQUIN 750 MG TABS 1 qd LEVOFLOXACIN 5486 7102585 No Longer Active Adam Yates MD Active ADULT ASPIRIN LOW STRENGTH 81 MG TBDP 1 qd A SPIRIN 42008137072 Active Hope Benavidez MD PhD Active LEVAQUIN 750 MG TABS 1 qd LEVAQUIN 750 MG T ABS 109940 LEVOFLOXACIN Inactive FLAGYL 500 MG TABS 1 qid FLAGYL 500 MG TABS 108650 METRONIDAZOLE Inactive MELOXICAM 15 MG TABS 1 qd MELOXICAM 15 MG T ABS 480380 MELOXICAM Inactive SIMVASTATIN 40 MG TABS 1 qd SIMVASTATIN 40 MG TABS 864582 SIMVASTATIN Inactive PROZAC 20 MG CAPS 1 q d PROZAC 20 MG CAPS 31 0385 FLUOXETINE HCL Inactive DYAZIDE 37.5-25 MG CAPS 1 qd DYAZIDE 37.5 -25 MG CAPS 396431 TRIAMTERENE-HCTZ Inactive INNOPRAN XL 120 MG [id number] Take one by mouth daily 2 INNOPRAN XL 120 MG [id number] PROPRANOLOL HCL SR BEADS Inactive PROMETHAZINE HCL 25 MG TABS 1 Q. 4 hr. PRN PROMETHAZINE HCL 25 MG TABS 770867 PROMETHAZINE HCL Inactive POTASSIUM CHLORIDE 20 MEQ PACK by mouth twice a day prn POTASSIUM CHLORIDE 20 MEQ PACK 280470 POTASSIUM CHLORIDE Inactive PHENADOZ 25 MG SUPP 1 every 4 hrs. PRN PHENADOZ 2 5 MG SUPP 722239 PROMETHAZINE HCL Inactive ZOFRAN 8 MG TABS 1 tab by mouth every 12 hours prn 201 05/16/09 ZOFRAN 8 MG TABS 680385 ONDANSETRON HCL Inactive OMEPRAZOLE 20 MG CPDR 1 tablet by mouth daily for GERD OMEPRAZOLE 20 MG CPDR 962282 OMEPRAZOLE Inactive CYCLOBENZAPRINE HCL 10 MG TABS 1 tablet by mouth three times daily as needed for headaches CYCLOBENZAPRINE HCL 10 MG TABS 557383 CYCLOBENZAPRINE HCL Inactive VITAMIN D3 4000 IU 1 tab 3 times daily VITAMIN D3 4000 IU Inactive PROPRANOLOL HCL 80 MG TABS 1 tab tue. and thur. 04/10 PROPRANOLOL HCL 80 MG TABS 419725 PROPRANOLOL HCL Inactive CYANOCOBALAMIN 1000 MCG/ML INJ SOLN 1 injection every 2 weeks 20 20/01/03 CYANOCOBALAMIN 1000 MCG/ML INJ SOLN 527216 CYANOCOBALAM IN Inactive MAGNESIUM GLUCONATE 250 MG TABS 1 tab tid 4 MAGNESIUM GLUCONATE 250 MG TABS 370060 MAGNESIUM GLUCONATE Inactive LOMOTIL 2.5-0.025 MG TABS 1 tab by mouth prn 4 LOMOTIL 2.5- 0.025 MG TABS 5845909 DIPHENOXYLATE-ATROPINE Inactive FLORANEX PACK 1 pack three times daily, for bowel health FLORANEX PACK LACTOBACILLUS Inactive IRON 325 (65 FE) MG TABS 1 every other day IRON 325 (65 FE) MG TABS 644329 FERROUS SULFATE Inactive FLAGYL 500 MG TABS 1 pill by mouth three times daily, for diarrh ea FLAGYL 500 MG TABS 908182 METRONIDAZOLE Inactive BACTRIM DS 800-160 MG TABS 1 pill by mouth twice daily, for UTI BACTRIM DS 800-160 MG TABS 938131 SULFAMETHOXAZOLE-TRIM ETHOPRIM Inactive Advance Directives Directive Description [...] Panel - Chemistry sodium, serum 142 mmol/L 173-120 0910/04/20 carbon dioxide, venous blood 34.7 mmol/L 21.0-32 [...] ... - Chemistry sodium, serum 139 mmol/L 376-113 6614/10/20 carbon dioxide, venous blood 32.2 mmol/L 21.0-32 [...] ng/mL Encounters Code Encounter Date Provider Facility CPT-60369 Level 4 Est. Patient 17:00:48 CDT Kylie boyd [facility] CPT-97715 Level 3 Est. Patient 13:15:54 CDT Kylie Lund [facility] CPT-60731 Level 3 Est. Patient 09:10:11 CDT Kylie Lund [facility] CPT-58493 Level 4 Est. Patient 12:08:30 DIRECTOR OF CONSERVATION Hope cohn MD [facility] CPT-05021 Level 4 Est. Patient 19:08:42 DIRECTOR OF CONSERVATION Hope cohn MD [facility] CPT-24381 Level 4 Est. Patient 20:04:51 CDT Hope cohn MD [facility] CPT-03038 Level 3 New Patient 01:46:11 DIRECTOR OF CONSERVATION Hope landers MD PhD [facility] Procedures Code Procedure Name Date Entry Date Standard Desc ription CPT-62509 TSH - LAB USE ONLY 14:26:02 CDT CPT-39296 CMP - LAB USE ONLY 14:26:01 CDT CPT-75884 CBC with Diff - LAB USE ONLY 14:26:01 CDT 2 CPT-34877 Venipuncture Draw Fee 14:26:01 CDT CPT-54127 First Vx - Ix admin for Medicare patients 13:27:08 CDT CPT-63823 Fluzone High-Dose Intramuscular Suspension 11/26 13:27:08 CDT CPT-G0438 Initial Annual Wellness Exam 14:19:57 CD T CPT-G0009 Administration of Pneumococcal Vaccine 9 11:36:25 CDT CPT-50787 Prevnar 13 Intramuscular Suspension 1 1:36:25 CDT CPT-11821 Prevnar 13 Intramuscular Suspension 1 0:40:58 CDT CPT-J0897 Prolia 60 mg 10:37:16 CDT CPT-56272 Abx/Therapy Injection 10:37:16 CDT CPT-J0897 Prolia 60 mg 16:09:34 DIRECTOR OF CONSERVATION CPT-J0897 Prolia 60 mg 11:10:35 DIRECTOR OF CONSERVATION CPT-53875 Abx/Therapy Injection 11:10:35 DIRECTOR OF CONSERVATION CPT-000 Give Appropriate Flu Vaccine 17:01:15 DIRECTOR OF CONSERVATION 2 CPT-38754 Fluzone High Dose (65+) 15:03:08 DIRECTOR OF CONSERVATION 02/15 CPT-48874 Immunization Single Admin 15:03:08 DIRECTOR OF CONSERVATION 2014 CPT-OV Office Visit 15:58:06 CDT CPT-J0897 Prolia 60 mg 08:45:38 CDT CPT-34284 Abx/Therapy Injection 08:45:38 CDT CPT-J3420 Vitamin B12 1000mcg (Cyanocobalamin) 09:26:20 DIRECTOR OF CONSERVATION CPT-91059 Abx/Therapy Injection 09:26:20 DIRECTOR OF CONSERVATION CPT-J3420 Vitamin B12 1000mcg (Cyanocobalamin) 09:44:40 DIRECTOR OF CONSERVATION CPT-31883 Abx/Therapy Injection 09:44:40 DIRECTOR OF CONSERVATION CPT-J3420 Vitamin B12 1000mcg (Cyanocobalamin) 09:15:54 DIRECTOR OF CONSERVATION CPT-39729 Abx/Therapy Injection 09:15:54 DIRECTOR OF CONSERVATION CPT-J3420 Vitamin B12 1000mcg (Cyanocobalamin) 09:46:44 DIRECTOR OF CONSERVATION CPT-88357 Abx/Therapy Injection 09:46:44 DIRECTOR OF CONSERVATION CPT-J3420 Vitamin B12 1000mcg (Cyanocobalamin) 09:47:34 DIRECTOR OF CONSERVATION CPT-43053 Abx/Therapy Injection 09:47:34 DIRECTOR OF CONSERVATION CPT-J3420 Vitamin B12 1000mcg (Cyanocobalamin) 14:35:50 DIRECTOR OF CONSERVATION CPT-J3420 Vitamin B12 1000mcg (Cyanocobalamin) 09:25:05 DIRECTOR OF CONSERVATION CPT-49493 Abx/Therapy Injection 09:25:05 DIRECTOR OF CONSERVATION CPT-G0008 Administration of Influenza Virus Vaccine 13:36:47 CDT CPT-25101 Fluzone High-Dose Intramuscular Suspension 11/15 13:36:47 CDT CPT-J0897 Prolia 60 mg 08:50:41 CDT CPT-17157 Abx/Therapy Injection 08:50:41 CDT CPT-30508 Bone Density 12:06:12 CDT CPT-11553 Bone Density 08:54:40 CDT CPT-OV Office Visit 15:37:02 CDT CPT-67152 Postop F/U Visit 15:47:49 CDT CPT-28801 Postop F/U Visit 15:21:02 CDT CPT-TCMH Transitional Care Mgmt-High 07:52:27 CDT 20 20/06/01 CPT-62355 Venipuncture Draw Fee 13:51:18 CDT CPT-66616 Venipuncture Draw Fee 10:14:55 DIRECTOR OF CONSERVATION CPT-78425 Venipuncture Draw Fee 13:39:45 DIRECTOR OF CONSERVATION CPT-OV Office Visit 15:11:22 DIRECTOR OF CONSERVATION CPT-57774 Venipuncture Draw Fee 09:20:49 DIRECTOR OF CONSERVATION CPT-48563 Venipuncture Draw Fee 16:52:15 DIRECTOR OF CONSERVATION CPT-25514 Venipuncture Draw Fee 10:37:24 DIRECTOR OF CONSERVATION CPT-40706 Venipuncture Draw Fee 08:21:21 DIRECTOR OF CONSERVATION CPT-08549 Venipuncture Draw Fee 08:30:20 DIRECTOR OF CONSERVATION CPT-49427 Venipuncture Draw Fee 14:53:21 DIRECTOR OF CONSERVATION CPT-99850 Venipuncture Draw Fee 09:40:56 DIRECTOR OF CONSERVATION CPT-45850 Venipuncture Draw Fee 10:30:47 DIRECTOR OF CONSERVATION CPT-38075 Venipuncture Draw Fee 10:46:17 DIRECTOR OF CONSERVATION CPT-88077 Venipuncture Draw Fee 11:12:45 DIRECTOR OF CONSERVATION CPT-44861 Venipuncture Draw Fee 09:53:33 DIRECTOR OF CONSERVATION CPT-60935 Venipuncture Draw Fee 11:53:51 DIRECTOR OF CONSERVATION CPT-97935 Venipuncture Draw Fee 10:33:50 DIRECTOR OF CONSERVATION CPT-05252 Venipuncture Draw Fee 10:05:01 DIRECTOR OF CONSERVATION CPT-80517 Venipuncture Draw Fee 14:32:52 DIRECTOR OF CONSERVATION CPT-21764 Venipuncture Draw Fee 09:46:13 DIRECTOR OF CONSERVATION CPT-84509 Venipuncture Draw Fee 11:34:27 DIRECTOR OF CONSERVATION CPT-64819 Venipuncture Draw Fee 13:17:16 DIRECTOR OF CONSERVATION CPT-93419 Venipuncture Draw Fee 12:05:39 CDT CPT-82910 Venipuncture Draw Fee 12:49:12 CDT CPT-56062 Venipuncture Draw Fee 12:37:18 CDT CPT-87028 Venipuncture Draw Fee 10:57:11 CDT CPT-48992 Venipuncture Draw Fee 13:47:40 CDT CPT-34546 Venipuncture Draw Fee 10:02:17 CDT CPT-57037 TB Tubersol 17:32:32 CDT CPT-OV Office Visit 16:21:53 CDT CPT-OV Office Visit 15:49:22 CDT CPT-OV Office Visit 17:16:31 CDT CPT-OV Office Visit 10:43:31 CDT
--- OUTSIDE RECORDS SUMMARY | 2019-02-09 12:50 | XMS REPORT | Clinical Summary ---
Author Author Renaldo, Florecita Munoz Organization [facility] [email or web address] Address Unknown Phone Unavailable Allergies, Adverse Reactions, [...] PhD Hyperpotassemia GERD 530.81 Resolved Kylie Yokum QUALITY ASSURANCE Esophageal reflux Health maintenance exam V70.0 Resolved Adolfo Yates MD Routine general medical examination at a health care facility Anemia 285.9 Resolved Kylie Holt QUALITY ASSURANCE Anemia, unspecified Personal history of malignant neoplasm [...] Sebaceous cyst, scalp 706.2 Resolved Kylie Holt QUALITY ASSURANCE Sebaceous cyst Cervical lymphadenopathy, anterior, left 785.6 Resolv ed Kylie Holt QUALITY ASSURANCE Enlargement of lymph nodes Need for prophylactic vaccination and inoculation against in fluenza V04.81 Resolved Adam Yates MD Need for prophylactic vaccination and inoculation against influenza Preventive health care V70.0 Active Kylie Holt QUALITY ASSURANCE Routine general medical examination at a health care facility Thyroid nodule, left 241.0 Active Kylie Gonzalez PRN Nontoxic uninodular goiter Screening mammogram V76.12 Active Kylie Holt AP RN Other screening mammogram Mandy 706.2 Active Adam Yates MD Sebaceous cyst ABDOMINAL PAIN, RIGHT LOWER QUADRANT ICD-789.03 Inactive Kina Joshua QUALITY ASSURANCE ADENOCARCINOMA, COLON, 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 Dick Yates MD ABDOMINAL PAIN, GENERALIZED ICD-789.07 Inactive Hope Benavidez MD PhD FEVER UNSPECIFIED ICD-780.60 Inactive Hope cohn MD PhD UNSPECIFIED VENOUS INSUFFICIENCY ICD-459.81 [place] ctive Adam Yates MD ADENOCARCINOMA, 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 Inac tive Hope Benavidez MD PhD Hyperkalemia ICD-276.7 Inactive Hope Benavidez MD PhD GERD ICD-530.81 Inactive Kylie Yanet QUALITY ASSURANCE 2015 Health maintenance exam ICD-V70.0 Bam Yates MD Anemia ICD-285.9 Inactive Kylie Escalonapari QUALITY ASSURANCE 07/24 Weakness ICD-780.79 Inactive Hope Benavidez MD [...] MD Sebaceous cyst, scalp ICD-706.2 Inactive Tracy jalloh Yanet QUALITY ASSURANCE Cervical lymphadenopathy, anterior, left ICD-785.6 Inactive Kylie Yanet QUALITY ASSURANCE Need for prophylactic vaccination and inoculation against in fluenza ICD-V04.81 Bam Yates MD Colon cancer ICD-153.9 Bam luna MD Medication List Medication Instructions Start Date Stop Date Generic Name NDC Status Provider Patient Instruction VITAMIN D3 2000 UNIT ORAL CAPS Melaleuca-One daily CHOLECALCIFEROL 00807372623 Active Kylieshubham Lundum QUALITY ASSURANCE Active PROBIOTIC DAILY ORAL CAPS Take one daily PROBIOTIC PRODUCT 42866804980 Active Kylie Holt QUALITY ASSURANCE Active IRON 325 (65 FE) MG TABS 1 every other day FERR OUS SULFATE 02773230698 No Longer Active Kylie Holt QUALITY ASSURANCE Active FLORANEX PACK 1 pack three times daily, for bowel health LACTOBACILLUS 95439277696 No Longer Active Kylie Holt QUALITY ASSURANCE Active LOMOTIL 2.5-0.025 MG TABS 1 tab by mouth prn 4 DIPHENOXYLATE-ATROPINE 52442199003 No Longer Active Kylie Lundum QUALITY ASSURANCE Active MAGNESIUM GLUCONATE 250 MG TABS 1 tab tid 4 MAGNESIUM GLUCONATE 83579708720 No Longer Active Kylie Holt QUALITY ASSURANCE Active CYANOCOBALAMIN 1000 MCG/ML INJ SOLN 1 injection every 2 weeks 20 20/01/03 CYANOCOBALAMIN 79121963059 No Longer Active Kylie Holt QUALITY ASSURANCE Active ATENOLOL 25 MG ORAL TABS 1/2 pill by mouth daily, for headac hes, blood pressure ATENOLOL 88515585737 Active Kylie Lundum QUALITY ASSURANCE Active PROPRANOLOL HCL 80 MG TABS 1 tab tue. and thur. 04/10 PROPRANOLOL HCL 61254611341 No Longer Active Hope Benavidez MD PhD A ctive VITAMIN D3 4000 IU 1 tab 3 times daily VITAMIN D3 4000 IU No Longer Active Hope Benavidez MD PhD Active BACTRIM DS 800-160 MG TABS 1 pill by mouth twice daily, for UTI SULFAMETHOXAZOLE-TRIMETHOPRIM 54611028097 No Longer Active A attila Benavidez MD PhD Active PROLIA 60 MG/ML SOLN 1 shot every 6 months for osteoprosis DENOSUMAB 45978801212 Active Hope Benavidez MD PhD Active CALCIUM + D + K 750-500-40 MG-UNT-MCG TABS 1 tab by mouth tw ice daily CALCIUM-VITAMIN D-VITAMIN K 11405456004 Active Hope landers MD PhD Active DAILY VALUE MULTIVITAMIN TABS 1 tab by mouth twice daily MULTIPLE VITAMIN 19421181980 Active Hope Benavidez MD PhD Active FISH OIL 306 MG CAPS 1 tab by mouth three times daily OMEGA-3 FATTY ACIDS 61936901452 Active Hope Benavidez MD PhD Active LUTEIN 10 MG TABS 1 tab daily LUTEIN 46970864143 Act cash Hope Benavidez MD PhD Active TRIAMTERENE-HCTZ 37.5-25 MG TABS 1 tab by mouth daily TRIAMTERENE-HCTZ 61413779018 Active Kylieshubham Holt QUALITY ASSURANCE Active CYCLOBENZAPRINE HCL 10 MG TABS 1 tablet by mouth three times daily as needed for headaches CYCLOBENZAPRINE HCL 60732389307 No Longe r Active Adam Yates MD Active OMEPRAZOLE 20 MG CPDR 1 tablet by mouth daily for GERD OMEPRAZOLE 52725412226 No Longer Active Adam Yates MD A ctive ZOFRAN 8 MG TABS 1 tab by mouth every 12 hours prn 201 05/16/09 ONDANSETRON HCL 41836562119 No Longer Active Adam Yates MD Active PHENADOZ 25 MG SUPP 1 every 4 hrs. PRN PROMETHA ZINE HCL 36773913088 No Longer Active Adam Yates MD Active POTASSIUM CHLORIDE 20 MEQ PACK by mouth twice a day prn POTASSIUM CHLORIDE 03603412642 No Longer Active Adam Yates MD Active PROMETHAZINE HCL 25 MG TABS 1 Q. 4 hr. PRN PROM ETHAZINE HCL 28767850210 No Longer Active Adam Yates MD Active INNOPRAN XL 120 MG [id number] Take one by mouth daily 2 PROPRANOLOL HCL SR BEADS 56735300048 No Longer Active Adam Yates MD A ctive FLAGYL 500 MG TABS 1 pill by mouth three times daily, for diarrh ea METRONIDAZOLE 89809574287 No Longer Active Hope Benavidez MD PhD Active DYAZIDE 37.5-25 MG CAPS 1 qd TRIAMTERENE-HC TZ 82963634001 No Longer Active Hope Benavidez MD PhD Active PROZAC 20 MG CAPS 1 q d FLUOXETINE HCL 71707 324531 No Longer Active Hope Benavidez MD PhD Active SIMVASTATIN 40 MG TABS 1 qd SIMVASTATIN 004 81412715 No Longer Active Adam Yates MD Active MELOXICAM 15 MG TABS 1 qd MELOXICAM 5509426 4074 No Longer Active Adam Yates MD Active IMODIUM A-D 2 MG TABS 2 onset at diarrhea and prn. LOPERAMIDE HCL 40326899577 Active Hope Benavidez MD PhD Active EXCEDRIN EXTRA STRENGTH 250-250-65 MG TABS 1-2 q6h PRN headache 201 04/16/21 [id number] 68348692478 Active Hope Benavidez MD PhD Active FLAGYL 500 MG TABS 1 qid METRONIDAZOLE 49798 967208 No Longer Active Adam Yates MD Active LEVAQUIN 750 MG TABS 1 qd LEVOFLOXACIN 5486 1436208 No Longer Active Adam Yates MD Active ADULT ASPIRIN LOW STRENGTH 81 MG TBDP 1 qd A SPIRIN 87925957749 Active Hope Benavidez MD PhD Active LEVAQUIN 750 MG TABS 1 qd LEVAQUIN 750 MG T ABS 136747 LEVOFLOXACIN Inactive FLAGYL 500 MG TABS 1 qid FLAGYL 500 MG TABS 666477 METRONIDAZOLE Inactive MELOXICAM 15 MG TABS 1 qd MELOXICAM 15 MG T ABS 912037 MELOXICAM Inactive SIMVASTATIN 40 MG TABS 1 qd SIMVASTATIN 40 MG TABS 479543 SIMVASTATIN Inactive PROZAC 20 MG CAPS 1 q d PROZAC 20 MG CAPS 31 0385 FLUOXETINE HCL Inactive DYAZIDE 37.5-25 MG CAPS 1 qd DYAZIDE 37.5 -25 MG CAPS 873851 TRIAMTERENE-HCTZ Inactive INNOPRAN XL 120 MG [id number] Take one by mouth daily 2 INNOPRAN XL 120 MG [id number] PROPRANOLOL HCL SR BEADS Inactive PROMETHAZINE HCL 25 MG TABS 1 Q. 4 hr. PRN PROMETHAZINE HCL 25 MG TABS 214892 PROMETHAZINE HCL Inactive POTASSIUM CHLORIDE 20 MEQ PACK by mouth twice a day prn POTASSIUM CHLORIDE 20 MEQ PACK 856109 POTASSIUM CHLORIDE Inactive PHENADOZ 25 MG SUPP 1 every 4 hrs. PRN PHENADOZ 2 5 MG SUPP 486193 PROMETHAZINE HCL Inactive ZOFRAN 8 MG TABS 1 tab by mouth every 12 hours prn 201 05/16/09 ZOFRAN 8 MG TABS 294996 ONDANSETRON HCL Inactive OMEPRAZOLE 20 MG CPDR 1 tablet by mouth daily for GERD OMEPRAZOLE 20 MG CPDR 422320 OMEPRAZOLE Inactive CYCLOBENZAPRINE HCL 10 MG TABS 1 tablet by mouth three times daily as needed for headaches CYCLOBENZAPRINE HCL 10 MG TABS 855855 CYCLOBENZAPRINE HCL Inactive VITAMIN D3 4000 IU 1 tab 3 times daily VITAMIN D3 4000 IU Inactive PROPRANOLOL HCL 80 MG TABS 1 tab tue. and thur. 04/10 PROPRANOLOL HCL 80 MG TABS 340032 PROPRANOLOL HCL Inactive CYANOCOBALAMIN 1000 MCG/ML INJ SOLN 1 injection every 2 weeks 20 20/01/03 CYANOCOBALAMIN 1000 MCG/ML INJ SOLN 611063 CYANOCOBALAM IN Inactive MAGNESIUM GLUCONATE 250 MG TABS 1 tab tid 4 MAGNESIUM GLUCONATE 250 MG TABS 508894 MAGNESIUM GLUCONATE Inactive LOMOTIL 2.5-0.025 MG TABS 1 tab by mouth prn 4 LOMOTIL 2.5- 0.025 MG TABS 5277876 DIPHENOXYLATE-ATROPINE Inactive FLORANEX PACK 1 pack three times daily, for bowel health FLORANEX PACK LACTOBACILLUS Inactive IRON 325 (65 FE) MG TABS 1 every other day IRON 325 (65 FE) MG TABS 613458 FERROUS SULFATE Inactive FLAGYL 500 MG TABS 1 pill by mouth three times daily, for diarrh ea FLAGYL 500 MG TABS 247108 METRONIDAZOLE Inactive BACTRIM DS 800-160 MG TABS 1 pill by mouth twice daily, for UTI BACTRIM DS 800-160 MG TABS 355580 SULFAMETHOXAZOLE-TRIM ETHOPRIM Inactive Advance Directives Directive Description [...] Panel - Chemistry sodium, serum 142 mmol/L 195-067 6427/04/20 carbon dioxide, venous blood 34.7 mmol/L 21.0-32 [...] ... - Chemistry sodium, serum 139 mmol/L 095-076 8990/10/20 carbon dioxide, venous blood 32.2 mmol/L 21.0-32 [...] - Chemi stry cholesterol, serum 200 mg/dL 348-935 9218/11/22 triglyceride, serum, fasting 129 mg/dL 30-200 HDL cholesterol, serum 56 mg/dL 32-96 LDL cholesterol, serum 118 mg/dL 0-130 calcium, serum 9.0 mg/dL 8.5-10.1 Lab Report: MicroAlb Random w/creat/6517 - Urinalysis microalbumin/total urine volume 8 mg/L Units converted. See lab report for original value. microalbumin/creatinine ratio, urine 15 MCG/MG CREAT mg/L <30 Encounters Code Encounter Date Provider Facility CPT-28442 Level 3 New Patient 16:22:01 LICENSED PROSTHETIST Adam Yates MD [facility] CPT-81235 Level 4 Est. Patient 17:00:48 CDT [facility] CPT-19381 Level 3 Est. Patient 13:15:54 CDT [facility] CPT-46694 Level 3 Est. Patient 09:10:11 CDT [facility] CPT-85482 Level 4 Est. Patient 12:08:30 LICENSED PROSTHETIST Hope cohn MD [facility] CPT-41503 Level 4 Est. Patient 19:08:42 LICENSED PROSTHETIST Hope cohn MD [facility] CPT-10514 Level 4 Est. Patient 20:04:51 CDT Hope cohn MD [facility] CPT-21505 Level 3 New Patient 01:46:11 LICENSED PROSTHETIST Hope landers MD PhD [facility] Procedures Code Procedure Name Date Entry Date Standard Desc ription CPT-J0897 Prolia 60 mg 14:14:16 LICENSED PROSTHETIST CPT-53302 Abx/Therapy Injection 14:14:15 LICENSED PROSTHETIST CPT-40189 Lipid - LAB USE ONLY 10:01:52 LICENSED PROSTHETIST 2 CPT-11136 Calcium - LAB USE ONLY 10:01:51 LICENSED PROSTHETIST CPT-73162 Venipuncture Draw Fee 10:01:51 LICENSED PROSTHETIST CPT-LR Lesion Removal 16:22:01 LICENSED PROSTHETIST CPT-86971 TSH - LAB USE ONLY 14:26:02 CDT CPT-24592 CMP - LAB USE ONLY 14:26:01 CDT CPT-65398 CBC with Diff - LAB USE ONLY 14:26:01 CDT 2 CPT-20085 Venipuncture Draw Fee 14:26:01 CDT CPT-59797 First Vx - Ix admin for Medicare patients 13:27:08 CDT CPT-00356 Fluzone High-Dose Intramuscular Suspension 11/26 13:27:08 CDT CPT-G0438 Initial Annual Wellness Exam 14:19:57 CD T CPT-G0009 Administration of Pneumococcal Vaccine 9 11:36:25 CDT CPT-48205 Prevnar 13 Intramuscular Suspension 1 1:36:25 CDT CPT-80382 Prevnar 13 Intramuscular Suspension 1 0:40:58 CDT CPT-J0897 Prolia 60 mg 10:37:16 CDT CPT-17922 Abx/Therapy Injection 10:37:16 CDT CPT-J0897 Prolia 60 mg 16:09:34 LICENSED PROSTHETIST CPT-J0897 Prolia 60 mg 11:10:35 LICENSED PROSTHETIST CPT-36702 Abx/Therapy Injection 11:10:35 LICENSED PROSTHETIST CPT-000 Give Appropriate Flu Vaccine 17:01:15 LICENSED PROSTHETIST 2 CPT-60750 Fluzone High Dose (65+) 15:03:08 LICENSED PROSTHETIST 02/15 CPT-45992 Immunization Single Admin 15:03:08 LICENSED PROSTHETIST 2014 CPT-OV Office Visit 15:58:06 CDT CPT-J0897 Prolia 60 mg 08:45:38 CDT CPT-73078 Abx/Therapy Injection 08:45:38 CDT CPT-J3420 Vitamin B12 1000mcg (Cyanocobalamin) 09:26:20 LICENSED PROSTHETIST CPT-19591 Abx/Therapy Injection 09:26:20 LICENSED PROSTHETIST CPT-J3420 Vitamin B12 1000mcg (Cyanocobalamin) 09:44:40 LICENSED PROSTHETIST CPT-57645 Abx/Therapy Injection 09:44:40 LICENSED PROSTHETIST CPT-J3420 Vitamin B12 1000mcg (Cyanocobalamin) 09:15:54 LICENSED PROSTHETIST CPT-83102 Abx/Therapy Injection 09:15:54 LICENSED PROSTHETIST CPT-J3420 Vitamin B12 1000mcg (Cyanocobalamin) 09:46:44 LICENSED PROSTHETIST CPT-04829 Abx/Therapy Injection 09:46:44 LICENSED PROSTHETIST CPT-J3420 Vitamin B12 1000mcg (Cyanocobalamin) 09:47:34 LICENSED PROSTHETIST CPT-91673 Abx/Therapy Injection 09:47:34 LICENSED PROSTHETIST CPT-J3420 Vitamin B12 1000mcg (Cyanocobalamin) 14:35:50 LICENSED PROSTHETIST CPT-J3420 Vitamin B12 1000mcg (Cyanocobalamin) 09:25:05 LICENSED PROSTHETIST CPT-91799 Abx/Therapy Injection 09:25:05 LICENSED PROSTHETIST CPT-G0008 Administration of Influenza Virus Vaccine 13:36:47 CDT CPT-78597 Fluzone High-Dose Intramuscular Suspension 11/15 13:36:47 CDT CPT-J0897 Prolia 60 mg 08:50:41 CDT CPT-81968 Abx/Therapy Injection 08:50:41 CDT CPT-10173 Bone Density 12:06:12 CDT CPT-31746 Bone Density 08:54:40 CDT CPT-OV Office Visit 15:37:02 CDT CPT-17541 Postop F/U Visit 15:47:49 CDT CPT-67078 Postop F/U Visit 15:21:02 CDT CPT-TCMH Transitional Care Mgmt-High 07:52:27 CDT 20 20/06/01 CPT-04077 Venipuncture Draw Fee 13:51:18 CDT CPT-25281 Venipuncture Draw Fee 10:14:55 LICENSED PROSTHETIST CPT-42724 Venipuncture Draw Fee 13:39:45 LICENSED PROSTHETIST CPT-OV Office Visit 15:11:22 LICENSED PROSTHETIST CPT-33519 Venipuncture Draw Fee 09:20:49 LICENSED PROSTHETIST CPT-99423 Venipuncture Draw Fee 16:52:15 LICENSED PROSTHETIST CPT-82779 Venipuncture Draw Fee 10:37:24 LICENSED PROSTHETIST CPT-79677 Venipuncture Draw Fee 08:21:21 LICENSED PROSTHETIST CPT-97663 Venipuncture Draw Fee 08:30:20 LICENSED PROSTHETIST CPT-41969 Venipuncture Draw Fee 14:53:21 LICENSED PROSTHETIST CPT-13958 Venipuncture Draw Fee 09:40:56 LICENSED PROSTHETIST CPT-96362 Venipuncture Draw Fee 10:30:47 LICENSED PROSTHETIST CPT-94670 Venipuncture Draw Fee 10:46:17 LICENSED PROSTHETIST CPT-78544 Venipuncture Draw Fee 11:12:45 LICENSED PROSTHETIST CPT-10285 Venipuncture Draw Fee 09:53:33 LICENSED PROSTHETIST CPT-39872 Venipuncture Draw Fee 11:53:51 LICENSED PROSTHETIST CPT-63096 Venipuncture Draw Fee 10:33:50 LICENSED PROSTHETIST CPT-38256 Venipuncture Draw Fee 10:05:01 LICENSED PROSTHETIST CPT-19517 Venipuncture Draw Fee 14:32:52 LICENSED PROSTHETIST CPT-77177 Venipuncture Draw Fee 09:46:13 LICENSED PROSTHETIST CPT-14341 Venipuncture Draw Fee 11:34:27 LICENSED PROSTHETIST CPT-99021 Venipuncture Draw Fee 13:17:16 LICENSED PROSTHETIST CPT-95084 Venipuncture Draw Fee 12:05:39 CDT CPT-98342 Venipuncture Draw Fee 12:49:12 CDT CPT-02991 Venipuncture Draw Fee 12:37:18 CDT CPT-55308 Venipuncture Draw Fee 10:57:11 CDT CPT-22592 Venipuncture Draw Fee 13:47:40 CDT CPT-89622 Venipuncture Draw Fee 10:02:17 CDT CPT-07177 TB Tubersol 17:32:32 CDT CPT-OV Office Visit 16:21:53 CDT CPT-OV Office Visit 15:49:22 CDT CPT-OV Office Visit 17:16:31 CDT CPT-OV Office Visit 10:43:31 CDT
--- OUTSIDE RECORDS SUMMARY | 2019-02-09 12:50 | XMS REPORT | Clinical Summary ---
Author Author Florecita Macario Organization [facility] Address Unknown Phone Unavailable Allergies, Adverse [...] cohn MD PhD UNSPECIFIED VENOUS INSUFFICIENCY ICD-459.81 [place] ctive Adam Yates MD ADENOCARCINOMA, ASCENDING COLON [...] tab tue. and thur. 04/10 PROPRANOLOL HCL [id number] No Longer Active Hope Benavidez MD PhD A ctive IRON 325 (65 FE) MG TABS 1 every other day FERROUS SULFATE 26738600482 Active Hope Benavidez MD PhD Active VITAMIN D3 4000 IU 1 tab 3 times daily VITAMIN D3 4000 IU No Longer Active Hope Benavidez MD PhD Active CYANOCOBALAMIN 1000 MCG/ML INJ SOLN 1 injection every 2 weeks 01/09 CYANOCOBALAMIN 85289886151 Active Laura Elder Active BACTRIM DS 800-160 MG TABS 1 pill by mouth twice daily, for UTI SULFAMETHOXAZOLE-TRIMETHOPRIM 66428790451 No Longer Active A attila Benavidez MD PhD Active PROLIA 60 MG/ML SOLN 1 shot every 6 months for osteoprosis DENOSUMAB 45592286250 Active Hope Benavidez MD PhD Active CALCIUM + D + K 750-500-40 MG-UNT-MCG TABS 1 tab by mouth tw ice daily CALCIUM-VITAMIN D-VITAMIN K 21412741100 Active Hope landers MD PhD Active DAILY VALUE MULTIVITAMIN TABS 1 tab by mouth twice daily MULTIPLE VITAMIN 06915465204 Active Hope Benavidez MD PhD Active FISH OIL 306 MG CAPS 1 tab by mouth three times daily OMEGA-3 FATTY ACIDS 16655727817 Active Hope Benavidez MD PhD Active LUTEIN 10 MG TABS 1 tab daily LUTEIN 89981702570 Act cash Hope Benavidez MD PhD Active FLORANEX PACK 1 pack three times daily, for bowel health LACTOBACILLUS 93354999700 Active Hope Benavidez MD PhD Active LOMOTIL 2.5-0.025 MG TABS 1 tab by mouth prn DIPHENOXYLATE-ATROPINE 58569080770 Active Hope Benavidez MD PhD Active TRIAMTERENE-HCTZ 37.5-25 MG TABS 1 tab by mouth daily TRIAMTERENE-HCTZ 27316689288 Active Hope Benavidez MD PhD Acti ve MAGNESIUM GLUCONATE 250 MG TABS 1 tab tid MAGN ESIUM GLUCONATE 44384501095 Active Adam Yates MD Active ATENOLOL 50 MG TABS 1/2 tab q other day m-w-f ATE NOLOL 53586840874 Active Hope Benavidez MD PhD Active CYCLOBENZAPRINE HCL 10 MG TABS 1 tablet by mouth three times daily as needed for headaches CYCLOBENZAPRINE HCL 97323305682 No Longe r Active Adam Yates MD Active OMEPRAZOLE 20 MG CPDR 1 tablet by mouth daily for GERD OMEPRAZOLE 60303399723 No Longer Active Adam Yates MD A ctive ZOFRAN 8 MG TABS 1 tab by mouth every 12 hours prn 201 05/16/09 ONDANSETRON HCL 39626213764 No Longer Active Adam Yates MD Active PHENADOZ 25 MG SUPP 1 every 4 hrs. PRN PROMETHA ZINE HCL 34035440029 No Longer Active Adam Yates MD Active POTASSIUM CHLORIDE 20 MEQ PACK by mouth twice a day prn POTASSIUM CHLORIDE 25552868002 No Longer Active Adam Yates MD Active PROMETHAZINE HCL 25 MG TABS 1 Q. 4 hr. PRN PROM ETHAZINE HCL 86844025008 No Longer Active Adam Yates MD Active INNOPRAN XL 120 MG [id number] Take one by mouth daily 2 PROPRANOLOL HCL SR BEADS 81992249651 No Longer Active Adam Yates MD A ctive FLAGYL 500 MG TABS 1 pill by mouth three times daily, for diarrh ea METRONIDAZOLE 51008650756 No Longer Active Hope Benavidez MD PhD Active DYAZIDE 37.5-25 MG CAPS 1 qd TRIAMTERENE-HC TZ 09338614529 No Longer Active Hope Benavidez MD PhD Active PROZAC 20 MG CAPS 1 q d FLUOXETINE HCL 48674 957065 No Longer Active Hope Benavidez MD PhD Active SIMVASTATIN 40 MG TABS 1 qd SIMVASTATIN 004 09332887 No Longer Active Adam Yates MD Active MELOXICAM 15 MG TABS 1 qd MELOXICAM 5567146 3649 No Longer Active Adam Yates MD Active IMODIUM A-D 2 MG TABS 2 onset at diarrhea and prn. LOPERAMIDE HCL 05923646182 Active Hope Benavidez MD PhD Active EXCEDRIN EXTRA STRENGTH 250-250-65 MG TABS 1-2 q6h PRN headache 201 04/16/21 [id number] 30455546839 Active Hope Benavidez MD PhD Active FLAGYL 500 MG TABS 1 qid METRONIDAZOLE 74613 094332 No Longer Active Adam Yates MD Active LEVAQUIN 750 MG TABS 1 qd LEVOFLOXACIN 5486 8376123 No Longer Active Adam Yates MD Active ADULT ASPIRIN LOW STRENGTH 81 MG TBDP 1 qd A SPIRIN 30410363976 Active Hope Benavidez MD PhD Active LEVAQUIN 750 MG TABS 1 qd LEVAQUIN 750 MG T ABS 461994 LEVOFLOXACIN Inactive FLAGYL 500 MG TABS 1 qid FLAGYL 500 MG TABS 306463 METRONIDAZOLE Inactive MELOXICAM 15 MG TABS 1 qd MELOXICAM 15 MG T ABS 388930 MELOXICAM Inactive SIMVASTATIN 40 MG TABS 1 qd SIMVASTATIN 40 MG TABS 479313 SIMVASTATIN Inactive PROZAC 20 MG CAPS 1 q d PROZAC 20 MG CAPS 31 0385 FLUOXETINE HCL Inactive DYAZIDE 37.5-25 MG CAPS 1 qd DYAZIDE 37.5 -25 MG CAPS 798619 TRIAMTERENE-HCTZ Inactive INNOPRAN XL 120 MG [id number] Take one by mouth daily 2 INNOPRAN XL 120 MG [id number]-MIC PROPRANOLOL HCL SR BEADS Inactive PROMETHAZINE HCL 25 MG TABS 1 Q. 4 hr. PRN PROMETHAZINE HCL 25 MG TABS 385625 PROMETHAZINE HCL Inactive POTASSIUM CHLORIDE 20 MEQ PACK by mouth twice a day prn POTASSIUM CHLORIDE 20 MEQ PACK 553230 POTASSIUM CHLORIDE Inactive PHENADOZ 25 MG SUPP 1 every 4 hrs. PRN PHENADOZ 2 5 MG SUPP 020996 PROMETHAZINE HCL Inactive ZOFRAN 8 MG TABS 1 tab by mouth every 12 hours prn 201 05/16/09 ZOFRAN 8 MG TABS 778615 ONDANSETRON HCL Inactive OMEPRAZOLE 20 MG CPDR 1 tablet by mouth daily for GERD OMEPRAZOLE 20 MG CPDR 647120 OMEPRAZOLE Inactive CYCLOBENZAPRINE HCL 10 MG TABS 1 tablet by mouth three times daily as needed for headaches CYCLOBENZAPRINE HCL 10 MG TABS 271181 CYCLOBENZAPRINE HCL Inactive VITAMIN D3 4000 IU 1 tab 3 times daily VITAMIN D3 4000 IU Inactive PROPRANOLOL HCL 80 MG TABS 1 tab tue. and thur. 04/10 PROPRANOLOL HCL 80 MG TABS 768900 PROPRANOLOL HCL Inactive FLAGYL 500 MG TABS 1 pill by mouth three times daily, for diarrh ea FLAGYL 500 MG TABS 536091 METRONIDAZOLE Inactive BACTRIM DS 800-160 MG TABS [...] Range Description Chart Maintenance: labs added to [employer] [facility] - Chemistry magnesium, serum 2.0 mg/dL Chart Maintenance: Outside labs entered on [employer] - Chemistry sodium, serum 139 mmol/L potassium, serum 3.9 mmol/L blood glucose 85 mg/dL creatinine, serum 1.26 mg/dL aspartate aminotransferase (SGOT), serum 33 U/L alanine aminotransferase (SGPT), serum 44 U/L alkaline phosphatase, serum 127 U/L Chart Maintenance: Outside labs entered on [employer] - Hematology leukocyte count, blood 4.6 10*3/mm3 hemoglobin, blood 13.6 g/dL platelet count 162 10*3/mm3 Lab Report: Basic Metabolic Panel - Chem istry sodium, serum 136 mmol/L 245-178 6579/05/02 potassium, serum 4.1 mmol/L 3.5-5.2 chloride, serum [...] 1.16 mg/dL Lab Report: [facility] W/ [facility]FF, [facility] - Chemistry sodium, serum 137 mmol/L potassium, serum 3.8 mmol/L blood glucose 79 mg/dL creatinine, serum 1.02 mg/dL magnesium, serum 1.2 mg/dL Lab Report: CBC W/ DIFF, [facility], AN [facility]EROB[facility] CX - Hematology leukocyte count, blood 8.7 10*3/mm3 hemoglobin, blood 10.8 g/dL platelet count 319 10*3/mm3 Lab Report: CBC W/DIFF, Comp. Metabolic Panel - Chemistry sodium, serum 138 mmol/L 951-963 6064/08/14 potassium, serum 4.0 mmol/L 3.5-5.2 chloride, serum [...] 0.40 mg/dL 0.00-1.00 sodium, serum 145 mmol/L 710-731 0849/02/02 potassium, serum 4.2 mmol/L 3.5-5.2 chloride, serum [...] 11 .6-14.8 platelet count 155 10^3/MM^3 10*3/mm3 261-695 8885/08/14 leukocyte count, blood 5.8 10^3/MM^3 10*3/mm3 4.6-10.2 [...] - Chem istry sodium, serum 143 mmol/L 013-301 7263/04/15 potassium, serum 3.4 mmol/L 3.5-5.2 chloride, serum [...] Panel - Chemistry cholesterol, serum 209 mg/dL 850-952 4405/09/11 triglyceride, serum, fasting 113 mg/dL 30-200 HDL [...] semiquantitative 7.0 5.0-8.5 Lab Report: VITAMIN D, 25-HYDROXY/92892, MAGNESIUM/622 - Chemistry vitamin D 25-hydroxy, serum 41 ng/mL 30-100 Encounters Code Encounter Date Provider Facility CPT-66617 Level 4 Est. Patient 12:08:30 IMPLEMENT MECHANIC Hope cohn MD PhD [facility] CPT-33016 Level 4 Est. Patient 19:08:42 IMPLEMENT MECHANIC Hope cohn MD PhD [facility] CPT-42097 Level 4 Est. Patient 20:04:51 CDT Hope cohn MD PhD [facility] CPT-19569 Level 3 New Patient 01:46:11 IMPLEMENT MECHANIC Hope landers MD PhD [facility] Procedures Code Procedure Name Date Entry Date Standard Desc ription CPT-J0897 Prolia 60 mg 08:45:38 CDT CPT-30274 Abx/Therapy Injection 08:45:38 CDT CPT-J3420 Vitamin B12 1000mcg (Cyanocobalamin) 09:26:20 IMPLEMENT MECHANIC CPT-20353 Abx/Therapy Injection 09:26:20 IMPLEMENT MECHANIC CPT-J3420 Vitamin B12 1000mcg (Cyanocobalamin) 09:44:40 IMPLEMENT MECHANIC CPT-24022 Abx/Therapy Injection 09:44:40 IMPLEMENT MECHANIC CPT-J3420 Vitamin B12 1000mcg (Cyanocobalamin) 09:15:54 IMPLEMENT MECHANIC CPT-79583 Abx/Therapy Injection 09:15:54 IMPLEMENT MECHANIC CPT-J3420 Vitamin B12 1000mcg (Cyanocobalamin) 09:46:44 IMPLEMENT MECHANIC CPT-44047 Abx/Therapy Injection 09:46:44 IMPLEMENT MECHANIC CPT-J3420 Vitamin B12 1000mcg (Cyanocobalamin) 09:47:34 IMPLEMENT MECHANIC CPT-28342 Abx/Therapy Injection 09:47:34 IMPLEMENT MECHANIC CPT-J3420 Vitamin B12 1000mcg (Cyanocobalamin) 14:35:50 IMPLEMENT MECHANIC CPT-J3420 Vitamin B12 1000mcg (Cyanocobalamin) 09:25:05 IMPLEMENT MECHANIC CPT-17982 Abx/Therapy Injection 09:25:05 IMPLEMENT MECHANIC CPT-G0008 Administration of Influenza Virus Vaccine 13:36:47 CDT CPT-54025 Fluzone High-Dose Intramuscular Suspension 11/15 13:36:47 CDT CPT-J0897 Prolia 60 mg 08:50:41 CDT CPT-12740 Abx/Therapy Injection 08:50:41 CDT CPT-83781 Bone Density 12:06:12 CDT CPT-68301 Bone Density 08:54:40 CDT CPT-OV Office Visit 15:37:02 CDT CPT-09938 Postop F/U Visit 15:47:49 CDT CPT-50143 Postop F/U Visit 15:21:02 CDT CPT-TCMH Transitional Care Mgmt-High 07:52:27 CDT 20 20/06/01 CPT-48096 Venipuncture Draw Fee 13:51:18 CDT CPT-00675 Venipuncture Draw Fee 10:14:55 IMPLEMENT MECHANIC CPT-04178 Venipuncture Draw Fee 13:39:45 IMPLEMENT MECHANIC CPT-OV Office Visit 15:11:22 IMPLEMENT MECHANIC CPT-65254 Venipuncture Draw Fee 09:20:49 IMPLEMENT MECHANIC CPT-59765 Venipuncture Draw Fee 16:52:15 IMPLEMENT MECHANIC CPT-16421 Venipuncture Draw Fee 10:37:24 IMPLEMENT MECHANIC CPT-76724 Venipuncture Draw Fee 08:21:21 IMPLEMENT MECHANIC CPT-25259 Venipuncture Draw Fee 08:30:20 IMPLEMENT MECHANIC CPT-24317 Venipuncture Draw Fee 14:53:21 IMPLEMENT MECHANIC CPT-95849 Venipuncture Draw Fee 09:40:56 IMPLEMENT MECHANIC CPT-30980 Venipuncture Draw Fee 10:30:47 IMPLEMENT MECHANIC CPT-19938 Venipuncture Draw Fee 10:46:17 IMPLEMENT MECHANIC CPT-93408 Venipuncture Draw Fee 11:12:45 IMPLEMENT MECHANIC CPT-85443 Venipuncture Draw Fee 09:53:33 IMPLEMENT MECHANIC CPT-75807 Venipuncture Draw Fee 11:53:51 IMPLEMENT MECHANIC CPT-21922 Venipuncture Draw Fee 10:33:50 IMPLEMENT MECHANIC CPT-50200 Venipuncture Draw Fee 10:05:01 IMPLEMENT MECHANIC CPT-01190 Venipuncture Draw Fee 14:32:52 IMPLEMENT MECHANIC CPT-49725 Venipuncture Draw Fee 09:46:13 IMPLEMENT MECHANIC CPT-21019 Venipuncture Draw Fee 11:34:27 IMPLEMENT MECHANIC CPT-49812 Venipuncture Draw Fee 13:17:16 IMPLEMENT MECHANIC CPT-33412 Venipuncture Draw Fee 12:05:39 CDT CPT-61693 Venipuncture Draw Fee 12:49:12 CDT CPT-89861 Venipuncture Draw Fee 12:37:18 CDT CPT-74296 Venipuncture Draw Fee 10:57:11 CDT CPT-90404 Venipuncture Draw Fee 13:47:40 CDT CPT-52744 Venipuncture Draw Fee 10:02:17 CDT CPT-12048 TB Tubersol 17:32:32 CDT CPT-OV Office Visit 16:21:53 CDT CPT-OV Office Visit 15:49:22 CDT CPT-OV Office Visit 17:16:31 CDT CPT-OV Office Visit 10:43:31 CDT
--- OUTSIDE RECORDS SUMMARY | 2019-02-09 12:50 | XMS REPORT | Clinical Summary ---
Author Author Renaldo, Florecita Munoz Organization [facility] Address Unknown Phone Unavailable Allergies, Adverse Reactions, [...] PhD Hyperpotassemia GERD 530.81 Resolved Kylie Yokum DEFECT CUTTER Esophageal reflux Health maintenance exam V70.0 Resolved Adolfo Yates MD Routine general medical examination at a health care facility Anemia 285.9 Resolved Kylie Holt DEFECT CUTTER Anemia, unspecified Personal history of malignant neoplasm [...] Sebaceous cyst, scalp 706.2 Resolved Kylie Holt DEFECT CUTTER Sebaceous cyst Cervical lymphadenopathy, anterior, left 785.6 Resolv ed Kylie Holt DEFECT CUTTER Enlargement of lymph nodes Need for prophylactic vaccination and inoculation against in fluenza V04.81 Active Citlaly Watkins RMA Need for prophylactic vaccination and inoculation against influenza Preventive health care V70.0 Active Kylie Holt DEFECT CUTTER Routine general medical examination at a health care facility Thyroid nodule, left 241.0 Active Kylie Holt A PRN Nontoxic uninodular goiter Screening mammogram V76.12 Active Kylie Holt AP RN Other screening mammogram ABDOMINAL PAIN, RIGHT LOWER QUADRANT ICD-789.03 Inactive Kina Joshua DEFECT CUTTER ADENOCARCINOMA, COLON, 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 Dick Yates MD ABDOMINAL PAIN, GENERALIZED ICD-789.07 Inactive Hope Benavidez MD PhD FEVER UNSPECIFIED ICD-780.60 Inactive Hope cohn MD PhD UNSPECIFIED VENOUS INSUFFICIENCY ICD-459.81 Twilight ctive Adam Yates MD ADENOCARCINOMA, 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 Inac tive Hope Benavidez MD PhD Hyperkalemia ICD-276.7 Inactive Hope Benavidez MD PhD GERD ICD-530.81 Inactive Kylie Holt DEFECT CUTTER 2015 Health maintenance exam ICD-V70.0 Bam Yates MD Anemia ICD-285.9 Inactive Kylie Holt DEFECT CUTTER 07/24 Weakness ICD-780.79 Inactive Hope Benavidez MD P hD Aftercare following surgery of the teeth,oral cavity a nd digestive system, NEC ICD-V58.75 Inactive Adam Yates MD Colon cancer ICD-153.9 Inactive Adam luna MD Asymptomatic postmenopausal status (age-related) (natural) I CD-V49.81 Inactive Hope Benavidez MD PhD Dysuria ICD-788.1 Inactive Hope Benavidez MD PhD 201 05/19/01 Sebaceous cyst, scalp ICD-706.2 Inactive Tracy Holt DEFECT CUTTER Cervical lymphadenopathy, anterior, left ICD-785.6 Inactive Kylie Lundum DEFECT CUTTER Medication List Medication Instructions Start Date Stop Date Generic Name NDC Status Provider Patient Instruction VITAMIN D3 2000 UNIT ORAL CAPS Melaleuca-One daily CHOLECALCIFEROL 44956710248 Active Kylie Lundum DEFECT CUTTER Active PROBIOTIC DAILY ORAL CAPS Take one daily PROBIOTIC PRODUCT 62083209452 Active Kylie Lundum DEFECT CUTTER Active IRON 325 (65 FE) MG TABS 1 every other day FERR OUS SULFATE 62618633656 No Longer Active Kylie Lundum DEFECT CUTTER Active FLORANEX PACK 1 pack three times daily, for bowel health LACTOBACILLUS 72739753940 No Longer Active Kylie Lundum DEFECT CUTTER Active LOMOTIL 2.5-0.025 MG TABS 1 tab by mouth prn 4 DIPHENOXYLATE-ATROPINE 08022799356 No Longer Active Kylie Yokum DEFECT CUTTER Active MAGNESIUM GLUCONATE 250 MG TABS 1 tab tid 4 MAGNESIUM GLUCONATE 56589618894 No Longer Active Kylie Yokum DEFECT CUTTER Active CYANOCOBALAMIN 1000 MCG/ML INJ SOLN 1 injection every 2 weeks 20 20/01/03 CYANOCOBALAMIN 51230307401 No Longer Active Kylie Yokum DEFECT CUTTER Active ATENOLOL 25 MG ORAL TABS 1/2 pill by mouth daily, for headac hes, blood pressure ATENOLOL 85496573772 Active Kylie Yokum DEFECT CUTTER Active PROPRANOLOL HCL 80 MG TABS 1 tab tue. and thur. 04/10 PROPRANOLOL HCL 39880330888 No Longer Active Hope Benavidez MD PhD A ctive VITAMIN D3 4000 IU 1 tab 3 times daily VITAMIN D3 4000 IU No Longer Active Hope Benavidez MD PhD Active BACTRIM DS 800-160 MG TABS 1 pill by mouth twice daily, for UTI SULFAMETHOXAZOLE-TRIMETHOPRIM 82982472441 No Longer Active A attila Benavidez MD PhD Active PROLIA 60 MG/ML SOLN 1 shot every 6 months for osteoprosis DENOSUMAB 09294546645 Active Hope Benavidez MD PhD Active CALCIUM + D + K 750-500-40 MG-UNT-MCG TABS 1 tab by mouth tw ice daily CALCIUM-VITAMIN D-VITAMIN K 58722714732 Active Hope landers MD PhD Active DAILY VALUE MULTIVITAMIN TABS 1 tab by mouth twice daily MULTIPLE VITAMIN 14473332199 Active Hope Benavidez MD PhD Active FISH OIL 306 MG CAPS 1 tab by mouth three times daily OMEGA-3 FATTY ACIDS 28274628652 Active Hope Benavidez MD PhD Active LUTEIN 10 MG TABS 1 tab daily LUTEIN 83927812343 Act cash Hope Benavidez MD PhD Active TRIAMTERENE-HCTZ 37.5-25 MG TABS 1 tab by mouth daily TRIAMTERENE-HCTZ 48876796181 Active Kylie Holt DEFECT CUTTER Active CYCLOBENZAPRINE HCL 10 MG TABS 1 tablet by mouth three times daily as needed for headaches CYCLOBENZAPRINE HCL 33385685624 No Longe r Active Adam Yates MD Active OMEPRAZOLE 20 MG CPDR 1 tablet by mouth daily for GERD OMEPRAZOLE 75448958407 No Longer Active Adam Yates MD A ctive ZOFRAN 8 MG TABS 1 tab by mouth every 12 hours prn 201 05/16/09 ONDANSETRON HCL 69289766202 No Longer Active Adam Yates MD Active PHENADOZ 25 MG SUPP 1 every 4 hrs. PRN PROMETHA ZINE HCL 95139845456 No Longer Active Adam Yates MD Active POTASSIUM CHLORIDE 20 MEQ PACK by mouth twice a day prn POTASSIUM CHLORIDE 72453102765 No Longer Active Adam Yates MD Active PROMETHAZINE HCL 25 MG TABS 1 Q. 4 hr. PRN PROM ETHAZINE HCL 10426736194 No Longer Active Adam Yates MD Active INNOPRAN XL 120 MG [id number] Take one by mouth daily 2 PROPRANOLOL HCL SR BEADS 63294177903 No Longer Active Adam Yates MD A ctive FLAGYL 500 MG TABS 1 pill by mouth three times daily, for diarrh ea METRONIDAZOLE 72974951811 No Longer Active Hope Benavidez MD PhD Active DYAZIDE 37.5-25 MG CAPS 1 qd TRIAMTERENE-HC TZ 28525303268 No Longer Active Hope Benavidez MD PhD Active PROZAC 20 MG CAPS 1 q d FLUOXETINE HCL 10586 382978 No Longer Active Hope Benavidez MD PhD Active SIMVASTATIN 40 MG TABS 1 qd SIMVASTATIN 004 47253896 No Longer Active Adam Yates MD Active MELOXICAM 15 MG TABS 1 qd MELOXICAM 5082367 4176 No Longer Active Adam Yates MD Active IMODIUM A-D 2 MG TABS 2 onset at diarrhea and prn. LOPERAMIDE HCL 29669979753 Active Hope Benavidez MD PhD Active EXCEDRIN EXTRA STRENGTH 250-250-65 MG TABS 1-2 q6h PRN headache 201 04/16/21 [id number] 95424775533 Active Hope Benavidez MD PhD Active FLAGYL 500 MG TABS 1 qid METRONIDAZOLE 43429 350380 No Longer Active Adam Yates MD Active LEVAQUIN 750 MG TABS 1 qd LEVOFLOXACIN 5486 5126410 No Longer Active Adam Yates MD Active ADULT ASPIRIN LOW STRENGTH 81 MG TBDP 1 qd A SPIRIN 84236112987 Active Hope Benavidez MD PhD Active LEVAQUIN 750 MG TABS 1 qd LEVAQUIN 750 MG T ABS 934966 LEVOFLOXACIN Inactive FLAGYL 500 MG TABS 1 qid FLAGYL 500 MG TABS 629483 METRONIDAZOLE Inactive MELOXICAM 15 MG TABS 1 qd MELOXICAM 15 MG T ABS 913544 MELOXICAM Inactive SIMVASTATIN 40 MG TABS 1 qd SIMVASTATIN 40 MG TABS 826621 SIMVASTATIN Inactive PROZAC 20 MG CAPS 1 q d PROZAC 20 MG CAPS 31 0385 FLUOXETINE HCL Inactive DYAZIDE 37.5-25 MG CAPS 1 qd DYAZIDE 37.5 -25 MG CAPS 392485 TRIAMTERENE-HCTZ Inactive INNOPRAN XL 120 MG [id number] Take one by mouth daily 2 INNOPRAN XL 120 MG [id number] PROPRANOLOL HCL SR BEADS Inactive PROMETHAZINE HCL 25 MG TABS 1 Q. 4 hr. PRN PROMETHAZINE HCL 25 MG TABS 972268 PROMETHAZINE HCL Inactive POTASSIUM CHLORIDE 20 MEQ PACK by mouth twice a day prn POTASSIUM CHLORIDE 20 MEQ PACK 157683 POTASSIUM CHLORIDE Inactive PHENADOZ 25 MG SUPP 1 every 4 hrs. PRN PHENADOZ 2 5 MG SUPP 417282 PROMETHAZINE HCL Inactive ZOFRAN 8 MG TABS 1 tab by mouth every 12 hours prn 201 05/16/09 ZOFRAN 8 MG TABS 602575 ONDANSETRON HCL Inactive OMEPRAZOLE 20 MG CPDR 1 tablet by mouth daily for GERD OMEPRAZOLE 20 MG CPDR 148727 OMEPRAZOLE Inactive CYCLOBENZAPRINE HCL 10 MG TABS 1 tablet by mouth three times daily as needed for headaches CYCLOBENZAPRINE HCL 10 MG TABS 457171 CYCLOBENZAPRINE HCL Inactive VITAMIN D3 4000 IU 1 tab 3 times daily VITAMIN D3 4000 IU Inactive PROPRANOLOL HCL 80 MG TABS 1 tab tue. and thur. 04/10 PROPRANOLOL HCL 80 MG TABS 592039 PROPRANOLOL HCL Inactive CYANOCOBALAMIN 1000 MCG/ML INJ SOLN 1 injection every 2 weeks 20 20/01/03 CYANOCOBALAMIN 1000 MCG/ML INJ SOLN 722857 CYANOCOBALAM IN Inactive MAGNESIUM GLUCONATE 250 MG TABS 1 tab tid 4 MAGNESIUM GLUCONATE 250 MG TABS 960762 MAGNESIUM GLUCONATE Inactive LOMOTIL 2.5-0.025 MG TABS 1 tab by mouth prn 4 LOMOTIL 2.5- 0.025 MG TABS 5134844 DIPHENOXYLATE-ATROPINE Inactive FLORANEX PACK 1 pack three times daily, for bowel health FLORANEX PACK LACTOBACILLUS Inactive IRON 325 (65 FE) MG TABS 1 every other day IRON 325 (65 FE) MG TABS 312005 FERROUS SULFATE Inactive FLAGYL 500 MG TABS 1 pill by mouth three times daily, for diarrh ea FLAGYL 500 MG TABS 854812 METRONIDAZOLE Inactive BACTRIM DS 800-160 MG TABS 1 pill by mouth twice daily, for UTI BACTRIM DS 800-160 MG TABS 993374 SULFAMETHOXAZOLE-TRIM ETHOPRIM Inactive Advance Directives Directive Description [...] Panel - Chemistry sodium, serum 142 mmol/L 716-894 9054/04/20 carbon dioxide, venous blood 34.7 mmol/L 21.0-32 .0 potassium, serum 3.5 mmol/L 3.5-5.2 chloride, serum 102 mmol/L 98-107 blood glucose 102 mg/dL 65-110 urea nitrogen, blood 24 mg/dL 7-18 creatinine, serum 1.37 mg/dL 0.55-1.30 alanine aminotransferase (SGPT), serum 72 U/L 12-78 aspartate aminotransferase (SGOT), serum 44 U/L 15-37 calcium, serum 9.0 mg/dL 8.5-10.1 bilirubin, serum, total 0.50 mg/dL 0.00-1.00 sodium, serum 138 mmol/L 837-717 7985/10/23 carbon dioxide, venous blood 29.5 mmol/L 21.0-32 [...] 11 .6-14.8 platelet count 189 10^3/MM^3 10*3/mm3 184-402 6336/04/20 leukocyte count, blood 5.9 10^3/MM^3 10*3/mm3 4.6-10.2 [...] ... - Chemistry sodium, serum 139 mmol/L 192-917 0917/10/20 carbon dioxide, venous blood 32.2 mmol/L 21.0-32 [...] 1.24 m[iU]/mL 0.36-3.74 cholesterol, serum 227 mg/dL 249-302 2747/10/23 triglyceride, serum, fasting 144 mg/dL 30-200 HDL cholesterol, serum 60 mg/dL 32-96 LDL cholesterol, serum 138 mg/dL 0-130 Lab Report: Lipid Panel, MICROALBUMIN, T hyroid Stimulating Hormone (L) - Lab microalbumin, urine 10 0-19 Encounters Code Encounter Date Provider Facility CPT-70669 Level 4 Est. Patient 17:00:48 CDT Kylie Lund [facility] [place] [facility] [place] CPT-19220 Level 3 Est. Patient 13:15:54 CDT Kylie Lund [facility] CPT-78656 Level 3 Est. Patient 09:10:11 CDT Kylie Lund [facility] CPT-04543 Level 4 Est. Patient 12:08:30 LETTER OF CREDIT CLERK Hope cohn MD PhD [facility] CPT-47065 Level 4 Est. Patient 19:08:42 LETTER OF CREDIT CLERK Hope cohn MD PhD [facility] CPT-42894 Level 4 Est. Patient 20:04:51 CDT Hope cohn MD PhD [facility] CPT-90432 Level 3 New Patient 01:46:11 LETTER OF CREDIT CLERK Hope landers MD PhD [facility] Procedures Code Procedure Name Date Entry Date Standard Desc ription CPT-21723 First Vx - Ix admin for Medicare patients 13:27:08 CDT CPT-48564 Fluzone High-Dose Intramuscular Suspension 11/26 13:27:08 CDT CPT-G0438 Initial Annual Wellness Exam 14:19:57 CD T CPT-G0009 Administration of Pneumococcal Vaccine 9 11:36:25 CDT CPT-17813 Prevnar 13 Intramuscular Suspension 1 1:36:25 CDT CPT-36295 Prevnar 13 Intramuscular Suspension 1 0:40:58 CDT CPT-J0897 Prolia 60 mg 10:37:16 CDT CPT-82447 Abx/Therapy Injection 10:37:16 CDT CPT-J0897 Prolia 60 mg 16:09:34 LETTER OF CREDIT CLERK CPT-J0897 Prolia 60 mg 11:10:35 LETTER OF CREDIT CLERK CPT-30747 Abx/Therapy Injection 11:10:35 LETTER OF CREDIT CLERK CPT-000 Give Appropriate Flu Vaccine 17:01:15 LETTER OF CREDIT CLERK 2 CPT-52180 Fluzone High Dose (65+) 15:03:08 LETTER OF CREDIT CLERK 02/15 CPT-82501 Immunization Single Admin 15:03:08 LETTER OF CREDIT CLERK 2014 CPT-OV Office Visit 15:58:06 CDT CPT-J0897 Prolia 60 mg 08:45:38 CDT CPT-14964 Abx/Therapy Injection 08:45:38 CDT CPT-J3420 Vitamin B12 1000mcg (Cyanocobalamin) 09:26:20 LETTER OF CREDIT CLERK CPT-11645 Abx/Therapy Injection 09:26:20 LETTER OF CREDIT CLERK CPT-J3420 Vitamin B12 1000mcg (Cyanocobalamin) 09:44:40 LETTER OF CREDIT CLERK CPT-45285 Abx/Therapy Injection 09:44:40 LETTER OF CREDIT CLERK CPT-J3420 Vitamin B12 1000mcg (Cyanocobalamin) 09:15:54 LETTER OF CREDIT CLERK CPT-85545 Abx/Therapy Injection 09:15:54 LETTER OF CREDIT CLERK CPT-J3420 Vitamin B12 1000mcg (Cyanocobalamin) 09:46:44 LETTER OF CREDIT CLERK CPT-30044 Abx/Therapy Injection 09:46:44 LETTER OF CREDIT CLERK CPT-J3420 Vitamin B12 1000mcg (Cyanocobalamin) 09:47:34 LETTER OF CREDIT CLERK CPT-68080 Abx/Therapy Injection 09:47:34 LETTER OF CREDIT CLERK CPT-J3420 Vitamin B12 1000mcg (Cyanocobalamin) 14:35:50 LETTER OF CREDIT CLERK CPT-J3420 Vitamin B12 1000mcg (Cyanocobalamin) 09:25:05 LETTER OF CREDIT CLERK CPT-44836 Abx/Therapy Injection 09:25:05 LETTER OF CREDIT CLERK CPT-G0008 Administration of Influenza Virus Vaccine 13:36:47 CDT CPT-62793 Fluzone High-Dose Intramuscular Suspension 11/15 13:36:47 CDT CPT-J0897 Prolia 60 mg 08:50:41 CDT CPT-68104 Abx/Therapy Injection 08:50:41 CDT CPT-06177 Bone Density 12:06:12 CDT CPT-38817 Bone Density 08:54:40 CDT CPT-OV Office Visit 15:37:02 CDT CPT-55184 Postop F/U Visit 15:47:49 CDT CPT-80129 Postop F/U Visit 15:21:02 CDT CPT-TCMH Transitional Care Mgmt-High 07:52:27 CDT 20 20/06/01 CPT-56564 Venipuncture Draw Fee 13:51:18 CDT CPT-56459 Venipuncture Draw Fee 10:14:55 LETTER OF CREDIT CLERK CPT-69085 Venipuncture Draw Fee 13:39:45 LETTER OF CREDIT CLERK CPT-OV Office Visit 15:11:22 LETTER OF CREDIT CLERK CPT-93533 Venipuncture Draw Fee 09:20:49 LETTER OF CREDIT CLERK CPT-45522 Venipuncture Draw Fee 16:52:15 LETTER OF CREDIT CLERK CPT-85146 Venipuncture Draw Fee 10:37:24 LETTER OF CREDIT CLERK CPT-28932 Venipuncture Draw Fee 08:21:21 LETTER OF CREDIT CLERK CPT-32786 Venipuncture Draw Fee 08:30:20 LETTER OF CREDIT CLERK CPT-41018 Venipuncture Draw Fee 14:53:21 LETTER OF CREDIT CLERK CPT-49068 Venipuncture Draw Fee 09:40:56 LETTER OF CREDIT CLERK CPT-45326 Venipuncture Draw Fee 10:30:47 LETTER OF CREDIT CLERK CPT-73450 Venipuncture Draw Fee 10:46:17 LETTER OF CREDIT CLERK CPT-59672 Venipuncture Draw Fee 11:12:45 LETTER OF CREDIT CLERK CPT-98776 Venipuncture Draw Fee 09:53:33 LETTER OF CREDIT CLERK CPT-81679 Venipuncture Draw Fee 11:53:51 LETTER OF CREDIT CLERK CPT-11452 Venipuncture Draw Fee 10:33:50 LETTER OF CREDIT CLERK CPT-16316 Venipuncture Draw Fee 10:05:01 LETTER OF CREDIT CLERK CPT-75575 Venipuncture Draw Fee 14:32:52 LETTER OF CREDIT CLERK CPT-68842 Venipuncture Draw Fee 09:46:13 LETTER OF CREDIT CLERK CPT-38731 Venipuncture Draw Fee 11:34:27 LETTER OF CREDIT CLERK CPT-00713 Venipuncture Draw Fee 13:17:16 LETTER OF CREDIT CLERK CPT-05858 Venipuncture Draw Fee 12:05:39 CDT CPT-79235 Venipuncture Draw Fee 12:49:12 CDT CPT-14932 Venipuncture Draw Fee 12:37:18 CDT CPT-33091 Venipuncture Draw Fee 10:57:11 CDT CPT-58226 Venipuncture Draw Fee 13:47:40 CDT CPT-24912 Venipuncture Draw Fee 10:02:17 CDT CPT-28599 TB Tubersol 17:32:32 CDT CPT-OV Office Visit 16:21:53 CDT CPT-OV Office Visit 15:49:22 CDT CPT-OV Office Visit 17:16:31 CDT CPT-OV Office Visit 10:43:31 CDT
--- OUTSIDE RECORDS SUMMARY | 2019-02-09 12:51 | XMS REPORT | Clinical Summary ---
Author Author Renaldo, Florecita Munoz Organization [facility] Address Unknown Phone Unavailable Allergies, Adverse Reactions, [...] PhD Hyperpotassemia GERD 530.81 Resolved Kylie Yokum JEWEL OLIVING MACHINE OPERATOR Esophageal reflux Health maintenance exam V70.0 Resolved Adolfo Yates MD Routine general medical examination at a health care facility Anemia 285.9 Resolved Kylie Holt JEWEL OLIVING MACHINE OPERATOR Anemia, unspecified Personal history of [...] Sebaceous cyst, scalp 706.2 Resolved Kylie Holt JEWEL OLIVING MACHINE OPERATOR Sebaceous cyst Cervical lymphadenopathy, anterior, left 785.6 Resolv ed Kylie Holt JEWEL OLIVING MACHINE OPERATOR Enlargement of lymph nodes Need for prophylactic vaccination and inoculation against in fluenza V04.81 Resolved Adam Yates MD Need for prophylactic vaccination and inoculation against influenza Preventive health care V70.0 Active Kylie Holt JEWEL OLIVING MACHINE OPERATOR Routine general medical examination at a health care facility Thyroid nodule, left 241.0 Active Kylie Gonzalez PRN Nontoxic uninodular goiter Screening mammogram V76.12 Active Kylie Holt AP RN Other screening mammogram Mandy 706.2 Active Adam Yates MD Sebaceous cyst ABDOMINAL PAIN, RIGHT LOWER QUADRANT ICD-789.03 Inactive Kina Joshua JEWEL OLIVING MACHINE OPERATOR ADENOCARCINOMA, COLON, 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 Dick Yates MD ABDOMINAL PAIN, GENERALIZED ICD-789.07 Inactive Hope Benavidez MD PhD FEVER UNSPECIFIED ICD-780.60 Inactive Hope cohn MD PhD UNSPECIFIED VENOUS INSUFFICIENCY ICD-459.81 Maskell ctive Adam Yates MD ADENOCARCINOMA, 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 Inac tive Hope Benavidez MD PhD Hyperkalemia ICD-276.7 Inactive Hope Benavidez MD PhD GERD ICD-530.81 Inactive Kylie Holt JEWEL OLIVING MACHINE OPERATOR 2015 Health maintenance exam ICD-V70.0 Bam Yates MD Anemia ICD-285.9 Inactive Kylie Holt JEWEL OLIVING MACHINE OPERATOR 07/24 Weakness ICD-780.79 Inactive Hope [...] cyst, scalp ICD-706.2 Inactive Tracy shubham Yanet JEWEL OLIVING MACHINE OPERATOR Cervical lymphadenopathy, anterior, left ICD-785.6 Inactive Kylie Holt JEWEL OLIVING MACHINE OPERATOR Need for prophylactic vaccination and inoculation against in fluenza ICD-V04.81 Bam Yates MD Medication List Medication Instructions Start Date Stop Date Generic Name NDC Status Provider Patient Instruction VITAMIN D3 2000 UNIT ORAL CAPS Melaleuca-One daily CHOLECALCIFEROL 17444258657 Active Kylie Yokum JEWEL OLIVING MACHINE OPERATOR Active PROBIOTIC DAILY ORAL CAPS Take one daily PROBIOTIC PRODUCT 47117412207 Active Kylie Holt JEWEL OLIVING MACHINE OPERATOR Active IRON 325 (65 FE) MG TABS 1 every other day FERR OUS SULFATE 75520588371 No Longer Active Kylie Holt JEWEL OLIVING MACHINE OPERATOR Active FLORANEX PACK 1 pack three times daily, for bowel health LACTOBACILLUS 74983252324 No Longer Active Kylie Holt JEWEL OLIVING MACHINE OPERATOR Active LOMOTIL 2.5-0.025 MG TABS 1 tab by mouth prn 4 DIPHENOXYLATE-ATROPINE 47795970299 No Longer Active Kylie Lundum JEWEL OLIVING MACHINE OPERATOR Active MAGNESIUM GLUCONATE 250 MG TABS 1 tab tid 4 MAGNESIUM GLUCONATE 40544277707 No Longer Active Kylie Holt JEWEL OLIVING MACHINE OPERATOR Active CYANOCOBALAMIN 1000 MCG/ML INJ SOLN 1 injection every 2 weeks 20 20/01/03 CYANOCOBALAMIN 34908544916 No Longer Active Kylie Holt JEWEL OLIVING MACHINE OPERATOR Active ATENOLOL 25 MG ORAL TABS 1/2 pill by mouth daily, for headac hes, blood pressure ATENOLOL 71076806704 Active Kylie Lundum JEWEL OLIVING MACHINE OPERATOR Active PROPRANOLOL HCL 80 MG TABS 1 tab tue. and thur. 04/10 PROPRANOLOL HCL 83245534778 No Longer Active Hope Benavidez MD PhD A ctive VITAMIN D3 4000 IU 1 tab 3 times daily VITAMIN D3 4000 IU No Longer Active Hope Benavidez MD PhD Active BACTRIM DS 800-160 MG TABS 1 pill by mouth twice daily, for UTI SULFAMETHOXAZOLE-TRIMETHOPRIM 77903656017 No Longer Active A attila Benavidez MD PhD Active PROLIA 60 MG/ML SOLN 1 shot every 6 months for osteoprosis DENOSUMAB 72953450055 Active Hope Benavidez MD PhD Active CALCIUM + D + K 750-500-40 MG-UNT-MCG TABS 1 tab by mouth tw ice daily CALCIUM-VITAMIN D-VITAMIN K 56494186979 Active Hope landers MD PhD Active DAILY VALUE MULTIVITAMIN TABS 1 tab by mouth twice daily MULTIPLE VITAMIN 64042414261 Active Hope Benavidez MD PhD Active FISH OIL 306 MG CAPS 1 tab by mouth three times daily OMEGA-3 FATTY ACIDS 78226165639 Active Hope Benavidez MD PhD Active LUTEIN 10 MG TABS 1 tab daily LUTEIN 68893633549 Act cash Hope Benavidez MD PhD Active TRIAMTERENE-HCTZ 37.5-25 MG TABS 1 tab by mouth daily TRIAMTERENE-HCTZ 20745038222 Active Kylieshubham Holt JEWEL OLIVING MACHINE OPERATOR Active CYCLOBENZAPRINE HCL 10 MG TABS 1 tablet by mouth three times daily as needed for headaches CYCLOBENZAPRINE HCL 84643992954 No Longe r Active Adam Yates MD Active OMEPRAZOLE 20 MG CPDR 1 tablet by mouth daily for GERD OMEPRAZOLE 16552405564 No Longer Active Adam Yates MD A ctive ZOFRAN 8 MG TABS 1 tab by mouth every 12 hours prn 201 05/16/09 ONDANSETRON HCL 41019550743 No Longer Active Adam Yates MD Active PHENADOZ 25 MG SUPP 1 every 4 hrs. PRN PROMETHA ZINE HCL 64748413270 No Longer Active Adam Yates MD Active POTASSIUM CHLORIDE 20 MEQ PACK by mouth twice a day prn POTASSIUM CHLORIDE 58461720089 No Longer Active Adam Yates MD Active PROMETHAZINE HCL 25 MG TABS 1 Q. 4 hr. PRN PROM ETHAZINE HCL 60374987569 No Longer Active Adam Yates MD Active INNOPRAN XL 120 MG [id number] Take one by mouth daily 2 PROPRANOLOL HCL SR BEADS 59279295180 No Longer Active Adam Yates MD A ctive FLAGYL 500 MG TABS 1 pill by mouth three times daily, for diarrh ea METRONIDAZOLE 02886965850 No Longer Active Hope Benavidez MD PhD Active DYAZIDE 37.5-25 MG CAPS 1 qd TRIAMTERENE-HC TZ 56669606828 No Longer Active Hope Benavidez MD PhD Active PROZAC 20 MG CAPS 1 q d FLUOXETINE HCL 50772 735789 No Longer Active Hope Benavidez MD PhD Active SIMVASTATIN 40 MG TABS 1 qd SIMVASTATIN 004 48298900 No Longer Active Adam Yates MD Active MELOXICAM 15 MG TABS 1 qd MELOXICAM 5542118 3189 No Longer Active Adam Yates MD Active IMODIUM A-D 2 MG TABS 2 onset at diarrhea and prn. LOPERAMIDE HCL 10559117607 Active Hope Benavidez MD PhD Active EXCEDRIN EXTRA STRENGTH 250-250-65 MG TABS 1-2 q6h PRN headache 201 04/16/21 [id number] 65901141238 Active Hope Benavidez MD PhD Active FLAGYL 500 MG TABS 1 qid METRONIDAZOLE 03892 538844 No Longer Active Adam Yates MD Active LEVAQUIN 750 MG TABS 1 qd LEVOFLOXACIN 5486 8469890 No Longer Active Adam Yates MD Active ADULT ASPIRIN LOW STRENGTH 81 MG TBDP 1 qd A SPIRIN 90411597708 Active Hope Benavidez MD PhD Active LEVAQUIN 750 MG TABS 1 qd LEVAQUIN 750 MG T ABS 842323 LEVOFLOXACIN Inactive FLAGYL 500 MG TABS 1 qid FLAGYL 500 MG TABS 438169 METRONIDAZOLE Inactive MELOXICAM 15 MG TABS 1 qd MELOXICAM 15 MG T ABS 524839 MELOXICAM Inactive SIMVASTATIN 40 MG TABS 1 qd SIMVASTATIN 40 MG TABS 389420 SIMVASTATIN Inactive PROZAC 20 MG CAPS 1 q d PROZAC 20 MG CAPS 31 0385 FLUOXETINE HCL Inactive DYAZIDE 37.5-25 MG CAPS 1 qd DYAZIDE 37.5 -25 MG CAPS 618211 TRIAMTERENE-HCTZ Inactive INNOPRAN XL 120 MG [id number] Take one by mouth daily 2 INNOPRAN XL 120 MG [id number] PROPRANOLOL HCL SR BEADS Inactive PROMETHAZINE HCL 25 MG TABS 1 Q. 4 hr. PRN PROMETHAZINE HCL 25 MG TABS 241375 PROMETHAZINE HCL Inactive POTASSIUM CHLORIDE 20 MEQ PACK by mouth twice a day prn POTASSIUM CHLORIDE 20 MEQ PACK 480764 POTASSIUM CHLORIDE Inactive PHENADOZ 25 MG SUPP 1 every 4 hrs. PRN PHENADOZ 2 5 MG SUPP 052295 PROMETHAZINE HCL Inactive ZOFRAN 8 MG TABS 1 tab by mouth every 12 hours prn 201 05/16/09 ZOFRAN 8 MG TABS 677961 ONDANSETRON HCL Inactive OMEPRAZOLE 20 MG CPDR 1 tablet by mouth daily for GERD OMEPRAZOLE 20 MG CPDR 000215 OMEPRAZOLE Inactive CYCLOBENZAPRINE HCL 10 MG TABS 1 tablet by mouth three times daily as needed for headaches CYCLOBENZAPRINE HCL 10 MG TABS 325690 CYCLOBENZAPRINE HCL Inactive VITAMIN D3 4000 IU 1 tab 3 times daily VITAMIN D3 4000 IU Inactive PROPRANOLOL HCL 80 MG TABS 1 tab tue. and thur. 04/10 PROPRANOLOL HCL 80 MG TABS 286384 PROPRANOLOL HCL Inactive CYANOCOBALAMIN 1000 MCG/ML INJ SOLN 1 injection every 2 weeks 20 20/01/03 CYANOCOBALAMIN 1000 MCG/ML INJ SOLN 613878 CYANOCOBALAM IN Inactive MAGNESIUM GLUCONATE 250 MG TABS 1 tab tid 4 MAGNESIUM GLUCONATE 250 MG TABS 446559 MAGNESIUM GLUCONATE Inactive LOMOTIL 2.5-0.025 MG TABS 1 tab by mouth prn 4 LOMOTIL 2.5- 0.025 MG TABS 3446843 DIPHENOXYLATE-ATROPINE Inactive FLORANEX PACK 1 pack three times daily, for bowel health FLORANEX PACK LACTOBACILLUS Inactive IRON 325 (65 FE) MG TABS 1 every other day IRON 325 (65 FE) MG TABS 885387 FERROUS SULFATE Inactive FLAGYL 500 MG TABS 1 pill by mouth three times daily, for diarrh ea FLAGYL 500 MG TABS 586148 METRONIDAZOLE Inactive BACTRIM DS 800-160 MG TABS 1 pill by mouth twice daily, for UTI BACTRIM DS 800-160 MG TABS 605552 SULFAMETHOXAZOLE-TRIM ETHOPRIM Inactive Advance Directives Directive Description [...] Panel - Chemistry sodium, serum 142 mmol/L 141-923 2052/04/20 carbon dioxide, venous blood 34.7 mmol/L 21.0-32 [...] ... - Chemistry sodium, serum 139 mmol/L 614-638 3367/10/20 carbon dioxide, venous blood 32.2 mmol/L 21.0-32 [...] - Chemi stry cholesterol, serum 200 mg/dL 005-655 4776/11/22 triglyceride, serum, fasting 129 mg/dL 30-200 HDL cholesterol, serum 56 mg/dL 32-96 LDL cholesterol, serum 118 mg/dL 0-130 calcium, serum 9.0 mg/dL 8.5-10.1 Lab Report: MicroAlb Random w/creat/6517 - Urinalysis microalbumin/total urine volume 8 mg/L Units converted. See lab report for original value. microalbumin/creatinine ratio, urine 15 MCG/MG CREAT mg/L <30 Encounters Code Encounter Date Provider Facility CPT-07882 Level 3 New Patient 16:22:01 PRESENTATION TEAM MEMBER Adam Yates MD [facility] CPT-11934 Level 4 Est. Patient 17:00:48 CDT [facility] CPT-34719 Level 3 Est. Patient 13:15:54 CDT [facility] CPT-83871 Level 3 Est. Patient 09:10:11 CDT [facility] [place] CPT-66478 Level 4 Est. Patient 12:08:30 PRESENTATION TEAM MEMBER Hope cohn MD [facility] CPT-35696 Level 4 Est. Patient 19:08:42 PRESENTATION TEAM MEMBER Hope cohn MD [facility] CPT-96555 Level 4 Est. Patient 20:04:51 CDT Hope cohn MD [facility] CPT-74771 Level 3 New Patient 01:46:11 PRESENTATION TEAM MEMBER Hope landers MD PhD [facility] Procedures Code Procedure Name Date Entry Date Standard Desc ription CPT-J0897 Prolia 60 mg 14:14:16 PRESENTATION TEAM MEMBER CPT-94311 Abx/Therapy Injection 14:14:15 PRESENTATION TEAM MEMBER CPT-10960 Lipid - LAB USE ONLY 10:01:52 PRESENTATION TEAM MEMBER 2 CPT-73852 Calcium - LAB USE ONLY 10:01:51 PRESENTATION TEAM MEMBER CPT-75740 Venipuncture Draw Fee 10:01:51 PRESENTATION TEAM MEMBER CPT-LR Lesion Removal 16:22:01 PRESENTATION TEAM MEMBER CPT-12171 TSH - LAB USE ONLY 14:26:02 CDT CPT-23002 CMP - LAB USE ONLY 14:26:01 CDT CPT-83265 CBC with Diff - LAB USE ONLY 14:26:01 CDT 2 CPT-97238 Venipuncture Draw Fee 14:26:01 CDT CPT-25650 First Vx - Ix admin for Medicare patients 13:27:08 CDT CPT-33223 Fluzone High-Dose Intramuscular Suspension 11/26 13:27:08 CDT CPT-G0438 Initial Annual Wellness Exam 14:19:57 CD T CPT-G0009 Administration of Pneumococcal Vaccine 9 11:36:25 CDT CPT-20017 Prevnar 13 Intramuscular Suspension 1 1:36:25 CDT CPT-06141 Prevnar 13 Intramuscular Suspension 1 0:40:58 CDT CPT-J0897 Prolia 60 mg 10:37:16 CDT CPT-35451 Abx/Therapy Injection 10:37:16 CDT CPT-J0897 Prolia 60 mg 16:09:34 PRESENTATION TEAM MEMBER CPT-J0897 Prolia 60 mg 11:10:35 PRESENTATION TEAM MEMBER CPT-56975 Abx/Therapy Injection 11:10:35 PRESENTATION TEAM MEMBER CPT-000 Give Appropriate Flu Vaccine 17:01:15 PRESENTATION TEAM MEMBER 2 CPT-99875 Fluzone High Dose (65+) 15:03:08 PRESENTATION TEAM MEMBER 02/15 CPT-58823 Immunization Single Admin 15:03:08 PRESENTATION TEAM MEMBER 2014 CPT-OV Office Visit 15:58:06 CDT CPT-J0897 Prolia 60 mg 08:45:38 CDT CPT-45361 Abx/Therapy Injection 08:45:38 CDT CPT-J3420 Vitamin B12 1000mcg (Cyanocobalamin) 09:26:20 PRESENTATION TEAM MEMBER CPT-06889 Abx/Therapy Injection 09:26:20 PRESENTATION TEAM MEMBER CPT-J3420 Vitamin B12 1000mcg (Cyanocobalamin) 09:44:40 PRESENTATION TEAM MEMBER CPT-57216 Abx/Therapy Injection 09:44:40 PRESENTATION TEAM MEMBER CPT-J3420 Vitamin B12 1000mcg (Cyanocobalamin) 09:15:54 PRESENTATION TEAM MEMBER CPT-11709 Abx/Therapy Injection 09:15:54 PRESENTATION TEAM MEMBER CPT-J3420 Vitamin B12 1000mcg (Cyanocobalamin) 09:46:44 PRESENTATION TEAM MEMBER CPT-89284 Abx/Therapy Injection 09:46:44 PRESENTATION TEAM MEMBER CPT-J3420 Vitamin B12 1000mcg (Cyanocobalamin) 09:47:34 PRESENTATION TEAM MEMBER CPT-74667 Abx/Therapy Injection 09:47:34 PRESENTATION TEAM MEMBER CPT-J3420 Vitamin B12 1000mcg (Cyanocobalamin) 14:35:50 PRESENTATION TEAM MEMBER CPT-J3420 Vitamin B12 1000mcg (Cyanocobalamin) 09:25:05 PRESENTATION TEAM MEMBER CPT-20144 Abx/Therapy Injection 09:25:05 PRESENTATION TEAM MEMBER CPT-G0008 Administration of Influenza Virus Vaccine 13:36:47 CDT CPT-06785 Fluzone High-Dose Intramuscular Suspension 11/15 13:36:47 CDT CPT-J0897 Prolia 60 mg 08:50:41 CDT CPT-77475 Abx/Therapy Injection 08:50:41 CDT CPT-31710 Bone Density 12:06:12 CDT CPT-17956 Bone Density 08:54:40 CDT CPT-OV Office Visit 15:37:02 CDT CPT-35763 Postop F/U Visit 15:47:49 CDT CPT-10365 Postop F/U Visit 15:21:02 CDT CPT-TCMH Transitional Care Mgmt-High 07:52:27 CDT 20 20/06/01 CPT-60680 Venipuncture Draw Fee 13:51:18 CDT CPT-99550 Venipuncture Draw Fee 10:14:55 PRESENTATION TEAM MEMBER CPT-77152 Venipuncture Draw Fee 13:39:45 PRESENTATION TEAM MEMBER CPT-OV Office Visit 15:11:22 PRESENTATION TEAM MEMBER CPT-31548 Venipuncture Draw Fee 09:20:49 PRESENTATION TEAM MEMBER CPT-73140 Venipuncture Draw Fee 16:52:15 PRESENTATION TEAM MEMBER CPT-50171 Venipuncture Draw Fee 10:37:24 PRESENTATION TEAM MEMBER CPT-00178 Venipuncture Draw Fee 08:21:21 PRESENTATION TEAM MEMBER CPT-32147 Venipuncture Draw Fee 08:30:20 PRESENTATION TEAM MEMBER CPT-88974 Venipuncture Draw Fee 14:53:21 PRESENTATION TEAM MEMBER CPT-45318 Venipuncture Draw Fee 09:40:56 PRESENTATION TEAM MEMBER CPT-24355 Venipuncture Draw Fee 10:30:47 PRESENTATION TEAM MEMBER CPT-64440 Venipuncture Draw Fee 10:46:17 PRESENTATION TEAM MEMBER CPT-64160 Venipuncture Draw Fee 11:12:45 PRESENTATION TEAM MEMBER CPT-02295 Venipuncture Draw Fee 09:53:33 PRESENTATION TEAM MEMBER CPT-67186 Venipuncture Draw Fee 11:53:51 PRESENTATION TEAM MEMBER CPT-46033 Venipuncture Draw Fee 10:33:50 PRESENTATION TEAM MEMBER CPT-13311 Venipuncture Draw Fee 10:05:01 PRESENTATION TEAM MEMBER CPT-14178 Venipuncture Draw Fee 14:32:52 PRESENTATION TEAM MEMBER CPT-38414 Venipuncture Draw Fee 09:46:13 PRESENTATION TEAM MEMBER CPT-10224 Venipuncture Draw Fee 11:34:27 PRESENTATION TEAM MEMBER CPT-25530 Venipuncture Draw Fee 13:17:16 PRESENTATION TEAM MEMBER CPT-36047 Venipuncture Draw Fee 12:05:39 CDT CPT-50061 Venipuncture Draw Fee 12:49:12 CDT CPT-91916 Venipuncture Draw Fee 12:37:18 CDT CPT-52298 Venipuncture Draw Fee 10:57:11 CDT CPT-23506 Venipuncture Draw Fee 13:47:40 CDT CPT-45513 Venipuncture Draw Fee 10:02:17 CDT CPT-64430 TB Tubersol 17:32:32 CDT CPT-OV Office Visit 16:21:53 CDT CPT-OV Office Visit 15:49:22 CDT CPT-OV Office Visit 17:16:31 CDT CPT-OV Office Visit 10:43:31 CDT
--- OUTSIDE RECORDS SUMMARY | 2019-02-09 12:51 | XMS REPORT | Clinical Summary ---
Author Author Renaldo, Florecita Munoz Organization [facility] Address Unknown Phone Unavailable Allergies, Adverse [...] stroke (cerebrovascular) Colon cancer 153.9 Resolved Adam Yaets MD Malignant neoplasm of colon, unspecified FH [...] cohn MD PhD UNSPECIFIED VENOUS INSUFFICIENCY ICD-459.81 [place] [address]ive Adam Yates MD ADENOCARCINOMA, 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 Inac tive Hope Benavidez MD PhD Hyperkalemia ICD-276.7 Inactive Hope Benavidez MD PhD Health maintenance exam ICD-V70.0 Bam Yates MD Weakness ICD-780.79 Inactive Hope Benavidez MD P hD Aftercare following surgery of the teeth,oral cavity a nd digestive system, NEC ICD-V58.75 Bam Yates MD Colon cancer ICD-153.9 Bam luna MD Asymptomatic postmenopausal status (age-related) (natural) I CD-V49.81 Inactive Hope Benavidez MD PhD Dysuria ICD-788.1 Inactive Hope Benavidez MD PhD 201 05/19/01 Medication List Medication Instructions Start Date Stop Date Generic Name NDC Status Provider Patient Instruction ATENOLOL 25 MG ORAL TABS 1/2 pill by mouth daily, for headac hes, blood pressure ATENOLOL 54363294232 Active Hope Benavidez MD PhD Active PROPRANOLOL HCL 80 MG TABS 1 tab tue. and thur. 04/10 PROPRANOLOL HCL 78586593118 No Longer Active Hope Benavidez MD PhD A ctive IRON 325 (65 FE) MG TABS 1 every other day FERROUS SULFATE 62749919844 Active Hope Benavidez MD PhD Active VITAMIN D3 4000 IU 1 tab 3 times daily VITAMIN D3 4000 IU No Longer Active Hope Benavidez MD PhD Active CYANOCOBALAMIN 1000 MCG/ML INJ SOLN 1 injection every 2 weeks 01/09 CYANOCOBALAMIN 60753373420 Active Laura Elder Active BACTRIM DS 800-160 MG TABS 1 pill by mouth twice daily, for UTI SULFAMETHOXAZOLE-TRIMETHOPRIM 03417033812 No Longer Active A attila Benavidez MD PhD Active PROLIA 60 MG/ML SOLN 1 shot every 6 months for osteoprosis DENOSUMAB 06993129564 Active Hope Benavidez MD PhD Active CALCIUM + D + K 750-500-40 MG-UNT-MCG TABS 1 tab by mouth tw ice daily CALCIUM-VITAMIN D-VITAMIN K 04960125636 Active Hope landers MD PhD Active DAILY VALUE MULTIVITAMIN TABS 1 tab by mouth twice daily MULTIPLE VITAMIN 88410527840 Active Hope Benavidez MD PhD Active FISH OIL 306 MG CAPS 1 tab by mouth three times daily OMEGA-3 FATTY ACIDS 46749133455 Active Hope Benavidez MD PhD Active LUTEIN 10 MG TABS 1 tab daily LUTEIN 14483145072 Act cash Hope Benavidez MD PhD Active FLORANEX PACK 1 pack three times daily, for bowel health LACTOBACILLUS 72654104744 Active Hope Benavidez MD PhD Active LOMOTIL 2.5-0.025 MG TABS 1 tab by mouth prn DIPHENOXYLATE-ATROPINE 82045268560 Active Hope Benavidez MD PhD Active TRIAMTERENE-HCTZ 37.5-25 MG TABS 1 tab by mouth daily TRIAMTERENE-HCTZ 32904545660 Active Hope Benavidez MD PhD Acti ve MAGNESIUM GLUCONATE 250 MG TABS 1 tab tid MAGN ESIUM GLUCONATE 51965566634 Active Adam Yates MD Active CYCLOBENZAPRINE HCL 10 MG TABS 1 tablet by mouth three times daily as needed for headaches CYCLOBENZAPRINE HCL 91257131956 No Longe r Active Adam Yaets MD Active OMEPRAZOLE 20 MG CPDR 1 tablet by mouth daily for GERD OMEPRAZOLE 99073447696 No Longer Active Adam Yates MD A ctive ZOFRAN 8 MG TABS 1 tab by mouth every 12 hours prn 201 05/16/09 ONDANSETRON HCL 10701522047 No Longer Active Adam Yates MD Active PHENADOZ 25 MG SUPP 1 every 4 hrs. PRN PROMETHA ZINE HCL 34283373279 No Longer Active Adam Yates MD Active POTASSIUM CHLORIDE 20 MEQ PACK by mouth twice a day prn POTASSIUM CHLORIDE 27761376981 No Longer Active Adam Yates MD Active PROMETHAZINE HCL 25 MG TABS 1 Q. 4 hr. PRN PROM ETHAZINE HCL 09816664154 No Longer Active Adam Yates MD Active INNOPRAN XL 120 MG [id number] Take one by mouth daily 2 PROPRANOLOL HCL SR BEADS 85373948526 No Longer Active Adam Yates MD A ctive FLAGYL 500 MG TABS 1 pill by mouth three times daily, for diarrh ea METRONIDAZOLE 66100329826 No Longer Active Hope Benavidez MD PhD Active DYAZIDE 37.5-25 MG CAPS 1 qd TRIAMTERENE-HC TZ 94848246703 No Longer Active Hope Benavidez MD PhD Active PROZAC 20 MG CAPS 1 q d FLUOXETINE HCL 84592 390636 No Longer Active Hope Benavidez MD PhD Active SIMVASTATIN 40 MG TABS 1 qd SIMVASTATIN 004 43693923 No Longer Active Adam Yates MD Active MELOXICAM 15 MG TABS 1 qd MELOXICAM 0210226 0963 No Longer Active Adam Yates MD Active IMODIUM A-D 2 MG TABS 2 onset at diarrhea and prn. LOPERAMIDE HCL 91390177356 Active Hope Benavidez MD PhD Active EXCEDRIN EXTRA STRENGTH 250-250-65 MG TABS 1-2 q6h PRN headache 201 04/16/21 [id number] 70075583729 Active Hope Benavidez MD PhD Active FLAGYL 500 MG TABS 1 qid METRONIDAZOLE 78159 901874 No Longer Active Adam Yates MD Active LEVAQUIN 750 MG TABS 1 qd LEVOFLOXACIN 5486 3250463 No Longer Active Adam Yates MD Active ADULT ASPIRIN LOW STRENGTH 81 MG TBDP 1 qd A SPIRIN 39268572558 Active Hope Benavidez MD PhD Active LEVAQUIN 750 MG TABS 1 qd LEVAQUIN 750 MG T ABS 770424 LEVOFLOXACIN Inactive FLAGYL 500 MG TABS 1 qid FLAGYL 500 MG TABS 680546 METRONIDAZOLE Inactive MELOXICAM 15 MG TABS 1 qd MELOXICAM 15 MG T ABS 568003 MELOXICAM Inactive SIMVASTATIN 40 MG TABS 1 qd SIMVASTATIN 40 MG TABS 037163 SIMVASTATIN Inactive PROZAC 20 MG CAPS 1 q d PROZAC 20 MG CAPS 31 0385 FLUOXETINE HCL Inactive DYAZIDE 37.5-25 MG CAPS 1 qd DYAZIDE 37.5 -25 MG CAPS 623217 TRIAMTERENE-HCTZ Inactive INNOPRAN XL 120 MG [id number] Take one by mouth daily 2 INNOPRAN XL 120 MG [id number] PROPRANOLOL HCL SR BEADS Inactive PROMETHAZINE HCL 25 MG TABS 1 Q. 4 hr. PRN PROMETHAZINE HCL 25 MG TABS 494040 PROMETHAZINE HCL Inactive POTASSIUM CHLORIDE 20 MEQ PACK by mouth twice a day prn POTASSIUM CHLORIDE 20 MEQ PACK 316924 POTASSIUM CHLORIDE Inactive PHENADOZ 25 MG SUPP 1 every 4 hrs. PRN PHENADOZ 2 5 MG SUPP 547118 PROMETHAZINE HCL Inactive ZOFRAN 8 MG TABS 1 tab by mouth every 12 hours prn 201 05/16/09 ZOFRAN 8 MG TABS 689330 ONDANSETRON HCL Inactive OMEPRAZOLE 20 MG CPDR 1 tablet by mouth daily for GERD OMEPRAZOLE 20 MG CPDR 542865 OMEPRAZOLE Inactive CYCLOBENZAPRINE HCL 10 MG TABS 1 tablet by mouth three times daily as needed for headaches CYCLOBENZAPRINE HCL 10 MG TABS 418592 CYCLOBENZAPRINE HCL Inactive VITAMIN D3 4000 IU 1 tab 3 times daily VITAMIN D3 4000 IU Inactive PROPRANOLOL HCL 80 MG TABS 1 tab tue. and thur. 04/10 PROPRANOLOL HCL 80 MG TABS 630125 PROPRANOLOL HCL Inactive FLAGYL 500 MG TABS 1 pill by mouth three times daily, for diarrh ea FLAGYL 500 MG TABS 952535 METRONIDAZOLE Inactive BACTRIM DS 800-160 MG TABS [...] Range Description Chart Maintenance: labs added to [facility] - Chemistry magnesium, serum 2.0 mg/dL Chart Maintenance: Outside labs entered on [facility] - Chemistry sodium, serum 139 mmol/L potassium, serum 3.9 mmol/L blood glucose 85 mg/dL creatinine, serum 1.26 mg/dL aspartate aminotransferase (SGOT), serum 33 U/L alanine aminotransferase (SGPT), serum 44 U/L alkaline phosphatase, serum 127 U/L Chart Maintenance: Outside labs entered on [facility] - Hematology leukocyte count, blood 4.6 10*3/mm3 hemoglobin, blood 13.6 g/dL platelet count 162 10*3/mm3 Lab Report: BMP - Chemistry sodium, serum 141 mmol/L potassium, serum 4.2 mmol/L blood glucose 66 mg/dL creatinine, serum 1.16 mg/dL Lab Report: CBC W/DIFF, Comp. Metabolic Panel - Chemistry sodium, serum 138 mmol/L 914-553 6421/08/14 potassium, serum 4.0 mmol/L 3.5-5.2 chloride, serum [...] 0.40 mg/dL 0.00-1.00 sodium, serum 145 mmol/L 060-095 9500/02/02 potassium, serum 4.2 mmol/L 3.5-5.2 chloride, serum 104 mmol/L 98-107 carbon dioxide, venous blood 28.3 mmol/L 21.0-32 .0 blood glucose 93 mg/dL 65-110 urea nitrogen, blood 32 mg/dL 7-18 creatinine, serum 1.40 mg/dL 0.60-1.30 alanine aminotransferase (SGPT), serum 73 U/L 12-78 aspartate aminotransferase (SGOT), serum 42 U/L 15-37 calcium, serum 9.2 mg/dL 8.5-10.1 bilirubin, serum, total 0.40 mg/dL 0.00-1.00 sodium, serum 142 mmol/L 847-077 7636/04/27 potassium, serum 3.2 mmol/L 3.5-5.2 chloride, serum [...] 11 .6-14.8 platelet count 155 10^3/MM^3 10*3/mm3 862-140 3878/04/27 leukocyte count, blood 5.3 10^3/MM^3 10*3/mm3 4.6-10.2 [...] 11 .6-14.8 platelet count 213 10^3/MM^3 10*3/mm3 140-076 4272/08/14 leukocyte count, blood 5.8 10^3/MM^3 10*3/mm3 4.6-10.2 [...] - Chem istry sodium, serum 143 mmol/L 531-150 1380/04/15 potassium, serum 3.4 mmol/L 3.5-5.2 chloride, serum [...] Panel - Chemistry cholesterol, serum 209 mg/dL 758-695 1312/09/11 triglyceride, serum, fasting 113 mg/dL 30-200 HDL [...] semiquantitative 7.0 5.0-8.5 Lab Report: VITAMIN D, 25-HYDROXY/28371, MAGNESIUM/622 - Chemistry vitamin D 25-hydroxy, serum 41 ng/mL 30-100 Encounters Code Encounter Date Provider Facility CPT-50974 Level 4 Est. Patient 12:08:30 COMMERCIAL AGENT Hope cohn MD PhD [facility] CPT-32804 Level 4 Est. Patient 19:08:42 COMMERCIAL AGENT Hope cohn MD PhD [facility] CPT-98190 Level 4 Est. Patient 20:04:51 CDT Hope cohn MD PhD [facility] CPT-00135 Level 3 New Patient 01:46:11 COMM[employer]CIAL AGENT Hope landers MD PhD [facility] Procedures Code Procedure Name Date Entry Date Standard Desc ription CPT-OV Office Visit 15:58:06 CDT CPT-J0897 Prolia 60 mg 08:45:38 CDT CPT-22201 Abx/Therapy Injection 08:45:38 CDT CPT-J3420 Vitamin B12 1000mcg (Cyanocobalamin) 09:26:20 COMMERCIAL AGENT CPT-80071 Abx/Therapy Injection 09:26:20 COMMERCIAL AGENT CPT-J3420 Vitamin B12 1000mcg (Cyanocobalamin) 09:44:40 COMMERCIAL AGENT CPT-80273 Abx/Therapy Injection 09:44:40 COMMERCIAL AGENT CPT-J3420 Vitamin B12 1000mcg (Cyanocobalamin) 09:15:54 COMMERCIAL AGENT CPT-34535 Abx/Therapy Injection 09:15:54 COMMERCIAL AGENT CPT-J3420 Vitamin B12 1000mcg (Cyanocobalamin) 09:46:44 COMMERCIAL AGENT CPT-09852 Abx/Therapy Injection 09:46:44 COMMERCIAL AGENT CPT-J3420 Vitamin B12 1000mcg (Cyanocobalamin) 09:47:34 COMMERCIAL AGENT CPT-04250 Abx/Therapy Injection 09:47:34 COMMERCIAL AGENT CPT-J3420 Vitamin B12 1000mcg (Cyanocobalamin) 14:35:50 COMMERCIAL AGENT CPT-J3420 Vitamin B12 1000mcg (Cyanocobalamin) 09:25:05 COMMERCIAL AGENT CPT-10422 Abx/Therapy Injection 09:25:05 COMMERCIAL AGENT CPT-G0008 Administration of Influenza Virus Vaccine 13:36:47 CDT CPT-89182 Fluzone High-Dose Intramuscular Suspension 11/15 13:36:47 CDT CPT-J0897 Prolia 60 mg 08:50:41 CDT CPT-15413 Abx/Therapy Injection 08:50:41 CDT CPT-03707 Bone Density 12:06:12 CDT CPT-90798 Bone Density 08:54:40 CDT CPT-OV Office Visit 15:37:02 CDT CPT-29163 Postop F/U Visit 15:47:49 CDT CPT-34958 Postop F/U Visit 15:21:02 CDT CPT-TCMH Transitional Care Mgmt-High 07:52:27 CDT 20 20/06/01 CPT-06488 Venipuncture Draw Fee 13:51:18 CDT CPT-01367 Venipuncture Draw Fee 10:14:55 COMMERCIAL AGENT CPT-27247 Venipuncture Draw Fee 13:39:45 COMMERCIAL AGENT CPT-OV Office Visit 15:11:22 COMMERCIAL AGENT CPT-28314 Venipuncture Draw Fee 09:20:49 COMMERCIAL AGENT CPT-04439 Venipuncture Draw Fee 16:52:15 COMMERCIAL AGENT CPT-25113 Venipuncture Draw Fee 10:37:24 COMMERCIAL AGENT CPT-31906 Venipuncture Draw Fee 08:21:21 COMMERCIAL AGENT CPT-11573 Venipuncture Draw Fee 08:30:20 COMMERCIAL AGENT CPT-12644 Venipuncture Draw Fee 14:53:21 COMMERCIAL AGENT CPT-51839 Venipuncture Draw Fee 09:40:56 COMMERCIAL AGENT CPT-63304 Venipuncture Draw Fee 10:30:47 COMMERCIAL AGENT CPT-21054 Venipuncture Draw Fee 10:46:17 COMMERCIAL AGENT CPT-01120 Venipuncture Draw Fee 11:12:45 COMMERCIAL AGENT CPT-93596 Venipuncture Draw Fee 09:53:33 COMMERCIAL AGENT CPT-97227 Venipuncture Draw Fee 11:53:51 COMMERCIAL AGENT CPT-21658 Venipuncture Draw Fee 10:33:50 COMMERCIAL AGENT CPT-51155 Venipuncture Draw Fee 10:05:01 COMMERCIAL AGENT CPT-84331 Venipuncture Draw Fee 14:32:52 COMMERCIAL AGENT CPT-03591 Venipuncture Draw Fee 09:46:13 COMMERCIAL AGENT CPT-11219 Venipuncture Draw Fee 11:34:27 COMMERCIAL AGENT CPT-32638 Venipuncture Draw Fee 13:17:16 COMMERCIAL AGENT CPT-11550 Venipuncture Draw Fee 12:05:39 CDT CPT-40598 Venipuncture Draw Fee 12:49:12 CDT CPT-08017 Venipuncture Draw Fee 12:37:18 CDT CPT-26909 Venipuncture Draw Fee 10:57:11 CDT CPT-94750 Venipuncture Draw Fee 13:47:40 CDT CPT-25545 Venipuncture Draw Fee 10:02:17 CDT CPT-03524 TB Tubersol 17:32:32 CDT CPT-OV Office Visit 16:21:53 CDT CPT-OV Office Visit 15:49:22 CDT CPT-OV Office Visit 17:16:31 CDT CPT-OV Office Visit 10:43:31 CDT
--- OUTSIDE RECORDS SUMMARY | 2019-02-09 12:51 | XMS REPORT | Clinical Summary ---
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 Kylie Hotl APRN Personal history of other specified dise ases ADENOCARCINOMA, ASCENDING COLON 153.6 Correction 2012 Hope Benavidez MD PhD Malignant neoplasm of ascending colon Hyperkalemia 276.7 Resolved Hope Benavidez MD PhD Hyperpotassemia GERD 530.81 Resolved Kylie Yokum IRONMOLDER Esophageal reflux Health maintenance exam V70.0 Resolved Adolfo Yates MD Routine general medical examination at a health care facility Anemia 285.9 Resolved Kylie Holt IRONMOLDER Anemia, unspecified Personal history of malignant neoplasm of large intestine V10.05 Active Adam Yates MD Personal history of malignant neoplasm of large intestine Hypomagnesemia 275.2 Resolved Kylie Holt IRONMOLDER Disorders of magnesium metabolism Weakness 780.79 Resolved [...] Sebaceous cyst, scalp 706.2 Resolved Kylie Yokum IRONMOLDER Sebaceous cyst Cervical lymphadenopathy, anterior, left 785.6 Resolv ed Kylie Yokum IRONMOLDER Enlargement of lymph nodes Need for prophylactic vaccination and inoculation against in fluenza V04.81 Resolved Adam Yates MD Need for prophylactic vaccination and inoculation against influenza Preventive health care V70.0 Active Kylie Yokum IRONMOLDER Routine general medical examination at a health care facility Thyroid nodule, left 241.0 Active Kylie Yokum A PRN Nontoxic uninodular goiter Screening mammogram V76.12 Active Kylie Yokum AP RN Other screening mammogram Mandy 706.2 Resolved Kylie Yokum IRONMOLDER Sebaceous cyst Colon cancer, ascending 153.6 Resolved Kylie Yok um IRONMOLDER Malignant neoplasm of ascending colon Foot pain, left 729.5 Active Sulema Naff [employer]IN MECH[employer]IC Pain in limb Splinter 919.6 Active Kylie Yokum IRONMOLDER Superficial foreign body (splinter) of other, multiple, and unspecified sites, without major open wound and without mention of infection Rash 782.1 Active Kylie Yokum IRONMOLDER R aurora and other nonspecific skin eruption ABDOMINAL PAIN, RIGHT LOWER QUADRANT ICD-789.03 Inactive Kina Joshua IRONMOLDER ADENOCARCINOMA, COLON, 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 Dick Yates MD ABDOMINAL PAIN, GENERALIZED ICD-789.07 Inactive Hope Benavidez MD PhD FEVER UNSPECIFIED ICD-780.60 Inactive Hope cohn MD PhD UNSPECIFIED VENOUS INSUFFICIENCY ICD-459.81 [place] ctive Adam Yates MD ADENOCARCINOMA, 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 Inac tive Hope Benavidez MD PhD Hyperkalemia ICD-276.7 Inactive Hope Benavidez MD PhD GERD ICD-530.81 Inactive Kylie Yanet IRONMOLDER 2015 Health maintenance exam ICD-V70.0 Bam Yates MD Anemia ICD-285.9 Inactive Kylie Holt IRONMOLDER 07/24 Hypomagnesemia ICD-275.2 Inactive Kylie Yokum IRONMOLDER Weakness ICD-780.79 Inactive Hope Benavidez MD P [...] Sebaceous cyst, scalp ICD-706.2 Inactive Tracy Holt IRONMOLDER Cervical lymphadenopathy, anterior, left ICD-785.6 Inactive Kylie Holt IRONMOLDER Need for prophylactic vaccination and inoculation against in fluenza ICD-V04.81 Inactive Adam Yates MD Mandy ICD-706.2 Inactive Kylie Holt IRONMOLDER 07/20 Colon cancer, ascending ICD-153.6 Inactive Gabbi Escalonagabbioliver IRONMOLDER Medication List Medication Instructions Start Date Stop Date Generic Name ND Status Provider Patient Instruction VOLTAREN 1 % TRANSDERMAL GEL apply q 6-8 hour to left arm as needed for pain DICLOFENAC SODIUM 98210782008 Active Kylie Holt APRN Active COQ10 100 MG ORAL CAPSULE 1 daily COENZYME Q10 448679 75264 Active LETY Nation Active VITAMIN D3 2000 UNIT ORAL CAPSULE Melaleuca-One daily CHOLECALCIFEROL 37700587062 Active Kylie Holt APRN Active PROBIOTIC DAILY ORAL CAPSULE Take one daily PROBIO TIC PRODUCT 28979097720 Active Kylie Holt APRN Active IRON 325 (65 Fe) MG ORAL TABLET 1 every other day FERROUS SULFATE 99996272280 No Longer Active Kylie Holt AMY Active FLORANEX ORAL PACKET 1 pack three times daily, for bowel health LACTOBACILLUS 25920793265 No Longer Active Kylie Lundum IRONMOLDER Active LOMOTIL 2.5-0.025 MG ORAL TABLET 1 tab by mouth prn 23/10/23 DIPHENOXYLATE-ATROPINE 51579914108 No Longer Active Kylie Lundum IRONMOLDER Active MAGNESIUM GLUCONATE 250 MG ORAL TABLET 1 tab tid 23/10/23 MAGNESIUM GLUCONATE 78252749981 No Longer Active Kylie Lundum IRONMOLDER Active CYANOCOBALAMIN 1000 MCG/ML INJECTION SOLUTION 1 injection ev ruben 2 weeks CYANOCOBALAMIN 80381884831 No Longer Active Kylie boyd IRONMOLDER Active ATENOLOL 25 MG ORAL TABLET 1/2 pill by mouth daily, fo r headaches, blood pressure ATENOLOL 08011141184 Active Kylie Holt IRONMOLDER Active PROPRANOLOL HCL 80 MG ORAL TABLET 1 tab tue. and thur. PROPRANOLOL HCL 26432355044 No Longer Active Hope Benavidez MD PhD A ctive VITAMIN D3 4000 IU 1 tab 3 times daily VITAMIN D3 4000 IU No Longer Active Hope Benavidez MD PhD Active BACTRIM DS 800-160 MG ORAL TABLET 1 pill by mouth twice claudio y, for UTI SULFAMETHOXAZOLE-TRIMETHOPRIM 93976962838 No Longer Active Hope Benavidez MD PhD Active PROLIA 60 MG/ML SUBCUTANEOUS SOLUTION 1 shot every 6 months for osteoprosis DENOSUMAB 51487535299 Active Hope Benavidez MD PhD Active CALCIUM + D + K 750-500-40 MG-UNT-MCG ORAL TABLET 1 tab by m [facility] twice daily CALCIUM-VITAMIN D-VITAMIN K 14560599342 Active Hope valdez MD PhD Active DAILY VALUE MULTIVITAMIN ORAL TABLET 1 tab by mouth twice daily 201 05/16/14 MULTIPLE VITAMIN 19101268767 Active Hope Benavidez MD PhD Acti ve FISH OIL 306 MG CAPS 1 tab by mouth three times daily OMEGA-3 FATTY ACIDS 48308185100 Active Hope Benavidez MD PhD Active LUTEIN 10 MG ORAL TABLET 1 tab daily LUTEIN 96390303 408 Active Hope Benavidez MD PhD Active TRIAMTERENE-HCTZ 37.5-25 MG ORAL TABLET 1 tab by mouth daily 10/22 TRIAMTERENE-HCTZ 24877111754 Active LETY Rossi CYCLOBENZAPRINE HCL 10 MG ORAL TABLET 1 tablet by mout h three times daily as needed for headaches CYCLOBENZAPRINE HCL 37054857627 No Longer Active Adam Yates MD Active OMEPRAZOLE 20 MG ORAL CAPSULE DELAYED RELEASE 1 tablet by mo [facility] daily for GERD OMEPRAZOLE 77249918346 No Longer Active Adam Yates MD Active ZOFRAN 8 MG ORAL TABLET 1 tab by mouth every 12 hours prn 4 ONDANSETRON HCL 38396924728 No Longer Active Adam Yates MD Active PHENADOZ 25 MG RECTAL SUPPOSITORY 1 every 4 hrs. PRN 2 PROMETHAZINE HCL 96036738087 No Longer Active Adam Yates MD A ctive POTASSIUM CHLORIDE 20 MEQ ORAL PACKET by mouth twice a day prn 2 POTASSIUM CHLORIDE 89155053750 No Longer Active Adam Carpenter MD Active PROMETHAZINE HCL 25 MG ORAL TABLET 1 Q. 4 hr. PRN PROMETHAZINE HCL 45037301980 No Longer Active Adam Yates MD Active INNOPRAN XL 120 MG ORAL CAPSULE EXTENDED RELEASE 24 HO UR Take one by mouth daily PROPRANOLOL HCL SR BEADS 27693824446 No Longer Active Adam Yates MD Active FLAGYL 500 MG ORAL TABLET 1 pill by mouth three times daily, for diarrhea METRONIDAZOLE 80568820633 No Longer Active Hope landers MD PhD Active DYAZIDE 37.5-25 MG ORAL CAPSULE 1 qd TRIA MTERENE-HCTZ 27403968664 No Longer Active Hope Benavidez MD PhD Active PROZAC 20 MG ORAL CAPSULE 1 q d FLUOXETINE HCL 41134497279 No Longer Active Hope Benavidez MD PhD Active SIMVASTATIN 40 MG ORAL TABLET 1 qd SIMVAS TATIN 33394850184 No Longer Active Adam Yates MD Active MELOXICAM 15 MG ORAL TABLET 1 qd MELOXICAM 23331219431 No Longer Active Adam Yates MD Active IMODIUM A-D 2 MG ORAL TABLET 2 onset at diarrhea and prn. LOPERAMIDE HCL 73122701646 Active Hope Benavidez MD PhD Active EXCEDRIN EXTRA STRENGTH 250-250-65 MG ORAL TABLET 1-2 q6h WI N headache [id number] 06872740776 Active Hope Benavidez MD PhD Active FLAGYL 500 MG ORAL TABLET 1 qid METRONIDAZOL E 62055736010 No Longer Active Adam Yates MD Active LEVAQUIN 750 MG ORAL TABLET 1 qd LEVOFLOXAC IN 91895603555 No Longer Active Adam Yates MD Active ADULT ASPIRIN LOW STRENGTH 81 MG ORAL TABLET DISINTEGRATING 1 qd ASPIRIN 48528561118 Active Hope Benavidez MD PhD Active LEVAQUIN 750 MG ORAL TABLET 1 qd LEVAQUIN 750 MG ORAL TABLET 821026 LEVOFLOXACIN Inactive FLAGYL 500 MG ORAL TABLET 1 qid FLAGYL 500 MG ORAL TABLET 904402 METRONIDAZOLE Inactive MELOXICAM 15 MG ORAL TABLET 1 qd MELOXICAM 15 MG ORAL TABLET 313687 MELOXICAM Inactive SIMVASTATIN 40 MG ORAL TABLET 1 qd SIMVASTATIN 40 MG ORAL TABLET 228390 SIMVASTATIN Inactive PROZAC 20 MG ORAL CAPSULE 1 q d PROZAC 20 MG ORAL CAPSULE 776411 FLUOXETINE HCL Inactive DYAZIDE 37.5-25 MG ORAL CAPSULE 1 qd 5 DYAZIDE 37.5-25 MG ORAL CAPSULE 226764 TRIAMTERENE-HCTZ Inactive INNOPRAN XL 120 MG ORAL CAPSULE EXTENDED RELEASE 24 HO UR Take one by mouth daily INNOPRAN XL 120 MG ORAL CAPSULE EXTENDED RELEASE 24 HOUR PROPRANOLOL HCL SR BEADS Inactive PROMETHAZINE HCL 25 MG ORAL TABLET 1 Q. 4 hr. PRN 2013 PROMETHAZINE HCL 25 MG ORAL TABLET 349832 PROMETHAZINE HCL Inactive POTASSIUM CHLORIDE 20 MEQ ORAL PACKET by mouth twice a day prn 2 POTASSIUM CHLORIDE 20 MEQ ORAL PACKET 5612632 POTASSIUM CHLORIDE Inactive PHENADOZ 25 MG RECTAL SUPPOSITORY 1 every 4 hrs. PRN 2 PHENADOZ 25 MG RECTAL SUPPOSITORY 851205 PROMETHAZINE HCL Inactive ZOFRAN 8 MG ORAL TABLET 1 tab by mouth every 12 hours prn 4 ZOFRAN 8 MG ORAL TABLET 724448 ONDANSETRON HCL Inactive OMEPRAZOLE 20 MG ORAL CAPSULE DELAYED RELEASE 1 tablet by mo uth daily for GERD OMEPRAZOLE 20 MG ORAL CAPSULE DELAYED RELEASE 19 8051 OMEPRAZOLE Inactive CYCLOBENZAPRINE HCL 10 MG ORAL TABLET 1 tablet by mout h three times daily as needed for headaches CYCLOBENZAPRINE HCL 10 MG ORAL TABLET 562972 CYCLOBENZAPRINE HCL Inactive VITAMIN D3 4000 IU 1 tab 3 times daily VITAMIN D3 4000 IU Inactive PROPRANOLOL HCL 80 MG ORAL TABLET 1 tab tue. and thur. PROPRANOLOL HCL 80 MG ORAL TABLET 200371 PROPRANOLOL HCL Inacti ve CYANOCOBALAMIN 1000 MCG/ML INJECTION SOLUTION 1 injection ev ruben 2 weeks CYANOCOBALAMIN 1000 MCG/ML INJECTION SOLUTION 30 9594 CYANOCOBALAMIN Inactive MAGNESIUM GLUCONATE 250 MG ORAL TABLET 1 tab tid 20 23/10/23 MAGNESIUM GLUCONATE 250 MG ORAL TABLET 757760 MAGNESIUM GLUCONATE Inactive LOMOTIL 2.5-0.025 MG ORAL TABLET 1 tab by mouth prn 20 23/10/23 LOMOTIL 2.5-0.025 MG ORAL TABLET 0024600 DIPHENOXYLATE-ATROPINE Inac tive FLORANEX ORAL PACKET 1 pack three times daily, for bowel health FLORANEX ORAL PACKET LACTOBACILLUS Inactive IRON 325 (65 Fe) MG ORAL TABLET 1 every other day 2015 IRON 325 (65 Fe) MG ORAL TABLET 691666 FERROUS SULFATE Inactive FLAGYL 500 MG ORAL TABLET 1 pill by mouth three times daily, for diarrhea FLAGYL 500 MG ORAL TABLET 401342 METRONIDAZOLE I nactive BACTRIM DS 800-160 MG ORAL TABLET 1 pill by mouth twice claudio y, for UTI BACTRIM DS 800-160 MG ORAL TABLET 919898 SULFAMETHOXAZOLE-TRIMETHOPRIM Inactive Advance Directives Directive Description Start [...] 11 .0-15.0 platelet count 157 THOUSAND/UL 10*3/mm3 907-197 6418/04/20 mean platelet volume 8.9 fL 7.5-12.5 Lab Report: CEA - Serology carcinoembryonic antigen 0.9 ng/mL Encounters Code Encounter Date Provider Facility CPT-61201 Level 2 Est. Patient 14:27:16 TANK BUILDER SUPERVISOR Kylie Lund [facility] CPT-66838 Level 3 Est. Patient 17:54:48 CDT Kylie Lund [facility] CPT-27245 Level 3 Est. Patient 16:26:30 CDT Kina blackmon [facility] CPT-19686 Level 3 New Patient 16:22:01 TANK BUILDER SUPERVISOR Adam Yates MD [facility] CPT-03720 Level 4 Est. Patient 17:00:48 CDT Klyie Lund [facility] CPT-64358 Level 3 Est. Patient 13:15:54 CDT Kylie Lund [facility] CPT-09374 Level 3 Est. Patient 09:10:11 CDT Kylie Lund [facility] CPT-69674 Level 4 Est. Patient 12:08:30 TANK BUILDER SUPERVISOR Hope cohn MD PhD [facility] CPT-28927 Level 4 Est. Patient 19:08:42 TANK BUILDER SUPERVISOR Hope cohn MD PhD [facility] CPT-36978 Level 4 Est. Patient 20:04:51 CDT Hope cohn MD PhD [facility] CPT-20206 Level 3 New Patient 01:46:11 TANK BUILDER SUPERVISOR Hope landers MD PhD [facility] Procedures Code Procedure Name Date Entry Date Standard Desc ription CPT-74979 First Vx - Ix admin for Medicare patients 11:19:30 CDT CPT-42549 Fluzone High-Dose Intramuscular Suspension 12/07 11:19:30 CDT CPT-J0897 Prolia 60 mg 14:55:42 CDT CPT-01620 Abx/Therapy Injection 14:55:42 CDT CPT-22218 Bone Density - XRAY USE ONLY 10:27:12 CDT 2 CPT-G0439 [facility] Annual Wellness Exam 17:54:53 CDT CPT-65331 Foot, left, comp min 3V - XRAY USE ONLY 12:22:49 CDT CPT-G0009 Administration of Pneumococcal Vaccine 3 12:18:00 CDT CPT-99411 Pneumovax 23 Injection Injectable 25 MCG /0.5ML 12:18:00 CDT CPT-J0897 Prolia 60 mg 14:14:16 TANK BUILDER SUPERVISOR CPT-77791 Abx/Therapy Injection 14:14:15 TANK BUILDER SUPERVISOR CPT-50914 Lipid - LAB USE ONLY 10:01:52 TANK BUILDER SUPERVISOR 2 CPT-51992 Calcium - LAB USE ONLY 10:01:51 TANK BUILDER SUPERVISOR CPT-10854 Venipuncture Draw Fee 10:01:51 TANK BUILDER SUPERVISOR CPT-LR Lesion Removal 16:22:01 TANK BUILDER SUPERVISOR CPT-39979 TSH - LAB USE ONLY 14:26:02 CDT CPT-72808 CMP - LAB USE ONLY 14:26:01 CDT CPT-74635 CBC with Diff - LAB USE ONLY 14:26:01 CDT 2 CPT-55180 Venipuncture Draw Fee 14:26:01 CDT CPT-16166 First Vx - Ix admin for Medicare patients 13:27:08 CDT CPT-52512 Fluzone High-Dose Intramuscular Suspension 11/26 13:27:08 CDT CPT-G0438 Initial Annual Wellness Exam 14:19:57 CD T CPT-G0009 Administration of Pneumococcal Vaccine 9 11:36:25 CDT CPT-52535 Prevnar 13 Intramuscular Suspension 1 1:36:25 CDT CPT-29257 Prevnar 13 Intramuscular Suspension 1 0:40:58 CDT CPT-J0897 Prolia 60 mg 10:37:16 CDT CPT-52563 Abx/Therapy Injection 10:37:16 CDT CPT-J0897 Prolia 60 mg 16:09:34 TANK BUILDER SUPERVISOR CPT-J0897 Prolia 60 mg 11:10:35 TANK BUILDER SUPERVISOR CPT-69691 Abx/Therapy Injection 11:10:35 TANK BUILDER SUPERVISOR CPT-000 Give Appropriate Flu Vaccine 17:01:15 TANK BUILDER SUPERVISOR 2 CPT-09244 Fluzone High Dose (65+) 15:03:08 TANK BUILDER SUPERVISOR 02/15 CPT-34794 Immunization Single Admin 15:03:08 TANK BUILDER SUPERVISOR 2014 CPT-OV Office Visit 15:58:06 CDT CPT-J0897 Prolia 60 mg 08:45:38 CDT CPT-47798 Abx/Therapy Injection 08:45:38 CDT CPT-J3420 Vitamin B12 1000mcg (Cyanocobalamin) 09:26:20 TANK BUILDER SUPERVISOR CPT-15897 Abx/Therapy Injection 09:26:20 TANK BUILDER SUPERVISOR CPT-J3420 Vitamin B12 1000mcg (Cyanocobalamin) 09:44:40 TANK BUILDER SUPERVISOR CPT-68591 Abx/Therapy Injection 09:44:40 TANK BUILDER SUPERVISOR CPT-J3420 Vitamin B12 1000mcg (Cyanocobalamin) 09:15:54 TANK BUILDER SUPERVISOR CPT-29310 Abx/Therapy Injection 09:15:54 TANK BUILDER SUPERVISOR CPT-J3420 Vitamin B12 1000mcg (Cyanocobalamin) 09:46:44 TANK BUILDER SUPERVISOR CPT-78981 Abx/Therapy Injection 09:46:44 TANK BUILDER SUPERVISOR CPT-J3420 Vitamin B12 1000mcg (Cyanocobalamin) 09:47:34 TANK BUILDER SUPERVISOR CPT-50206 Abx/Therapy Injection 09:47:34 TANK BUILDER SUPERVISOR CPT-J3420 Vitamin B12 1000mcg (Cyanocobalamin) 14:35:50 TANK BUILDER SUPERVISOR CPT-J3420 Vitamin B12 1000mcg (Cyanocobalamin) 09:25:05 TANK BUILDER SUPERVISOR CPT-93799 Abx/Therapy Injection 09:25:05 TANK BUILDER SUPERVISOR CPT-G0008 Administration of Influenza Virus Vaccine 13:36:47 CDT CPT-31317 Fluzone High-Dose Intramuscular Suspension 11/15 13:36:47 CDT CPT-J0897 Prolia 60 mg 08:50:41 CDT CPT-28972 Abx/Therapy Injection 08:50:41 CDT CPT-59339 Bone Density 12:06:12 CDT CPT-53567 Bone Density 08:54:40 CDT CPT-OV Office Visit 15:37:02 CDT CPT-84517 Postop F/U Visit 15:47:49 CDT CPT-69067 Postop F/U Visit 15:21:02 CDT CPT-[facility] Transitional Care Mgmt-High 07:52:27 CDT 20 20/06/01 CPT-88776 Venipuncture Draw Fee 13:51:18 CDT CPT-74540 Venipuncture Draw Fee 10:14:55 TANK BUILDER SUPERVISOR CPT-22897 Venipuncture Draw Fee 13:39:45 TANK BUILDER SUPERVISOR CPT-OV Office Visit 15:11:22 TANK BUILDER SUPERVISOR CPT-57047 Venipuncture Draw Fee 09:20:49 TANK BUILDER SUPERVISOR CPT-13722 Venipuncture Draw Fee 16:52:15 TANK BUILDER SUPERVISOR CPT-47378 Venipuncture Draw Fee 10:37:24 TANK BUILDER SUPERVISOR CPT-37579 Venipuncture Draw Fee 08:21:21 TANK BUILDER SUPERVISOR CPT-69435 Venipuncture Draw Fee 08:30:20 TANK BUILDER SUPERVISOR CPT-66253 Venipuncture Draw Fee 14:53:21 TANK BUILDER SUPERVISOR CPT-59341 Venipuncture Draw Fee 09:40:56 TANK BUILDER SUPERVISOR CPT-54446 Venipuncture Draw Fee 10:30:47 TANK BUILDER SUPERVISOR CPT-67683 Venipuncture Draw Fee 10:46:17 TANK BUILDER SUPERVISOR CPT-58349 Venipuncture Draw Fee 11:12:45 TANK BUILDER SUPERVISOR CPT-82692 Venipuncture Draw Fee 09:53:33 TANK BUILDER SUPERVISOR CPT-17530 Venipuncture Draw Fee 11:53:51 TANK BUILDER SUPERVISOR CPT-09670 Venipuncture Draw Fee 10:33:50 TANK BUILDER SUPERVISOR CPT-18196 Venipuncture Draw Fee 10:05:01 TANK BUILDER SUPERVISOR CPT-01186 Venipuncture Draw Fee 14:32:52 TANK BUILDER SUPERVISOR CPT-20635 Venipuncture Draw Fee 09:46:13 TANK BUILDER SUPERVISOR CPT-88082 Venipuncture Draw Fee 11:34:27 TANK BUILDER SUPERVISOR CPT-86971 Venipuncture Draw Fee 13:17:16 TANK BUILDER SUPERVISOR CPT-25996 Venipuncture Draw Fee 12:05:39 CDT CPT-20126 Venipuncture Draw Fee 12:49:12 CDT CPT-37366 Venipuncture Draw Fee 12:37:18 CDT CPT-22794 Venipuncture Draw Fee 10:57:11 CDT CPT-33337 Venipuncture Draw Fee 13:47:40 CDT CPT-00429 Venipuncture Draw Fee 10:02:17 CDT CPT-09188 TB Tubersol 17:32:32 CDT CPT-OV Office Visit 16:21:53 CDT CPT-OV Office Visit 15:49:22 CDT CPT-OV Office Visit 17:16:31 CDT CPT-OV Office Visit 10:43:31 CDT
--- OUTSIDE RECORDS SUMMARY | 2019-02-09 12:51 | XMS REPORT | Clinical Summary ---
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 and thur. 04/10 PROPRANOLOL HCL [id number] No Longer Active Hope Benavidez MD PhD A ctive IRON 325 (65 FE) MG TABS 1 every other day FERROUS SULFATE 95907637491 Active Hope Benavidez MD PhD Active VITAMIN D3 4000 IU 1 tab 3 times daily VITAMIN D3 4000 IU No Longer Active Hope Benavidez MD PhD Active CYANOCOBALAMIN 1000 MCG/ML INJ SOLN 1 injection every 2 weeks 01/09 CYANOCOBALAMIN 73750098440 Active Laura Elder Active BACTRIM DS 800-160 MG TABS 1 pill by mouth twice daily, for UTI SULFAMETHOXAZOLE-TRIMETHOPRIM 31179606673 No Longer Active A attila Benavidez MD PhD Active PROLIA 60 MG/ML SOLN 1 shot every 6 months for osteoprosis DENOSUMAB 34773835124 Active Hope Benavidez MD PhD Active CALCIUM + D + K 750-500-40 MG-UNT-MCG TABS 1 tab by mouth tw ice daily CALCIUM-VITAMIN D-VITAMIN K 70317163222 Active Hope landers MD PhD Active DAILY VALUE MULTIVITAMIN TABS 1 tab by mouth twice daily MULTIPLE VITAMIN 06700574845 Active Hope Benavidez MD PhD Active FISH OIL 306 MG CAPS 1 tab by mouth three times daily OMEGA-3 FATTY ACIDS 03140437173 Active Hope Benavidez MD PhD Active LUTEIN 10 MG TABS 1 tab daily LUTEIN 12969676292 Act cash Hope Benavidez MD PhD Active FLORANEX PACK 1 pack three times daily, for bowel health LACTOBACILLUS 69355593006 Active Hope Benavidez MD PhD Active LOMOTIL 2.5-0.025 MG TABS 1 tab by mouth prn DIPHENOXYLATE-ATROPINE 25061961685 Active Hope Benavidez MD PhD Active TRIAMTERENE-HCTZ 37.5-25 MG TABS 1 tab by mouth daily TRIAMTERENE-HCTZ 41937745399 Active Hope Benavidez MD PhD Acti ve MAGNESIUM GLUCONATE 250 MG TABS 1 tab tid MAGN ESIUM GLUCONATE 82498900850 Active Adam Yates MD Active ATENOLOL 50 MG TABS 1/2 tab q other day m-w-f ATE NOLOL 79524475038 Active oHpe Benavidez MD PhD Active CYCLOBENZAPRINE HCL 10 MG TABS 1 tablet by mouth three times daily as needed for headaches CYCLOBENZAPRINE HCL 05019064386 No Longe r Active Adam Yates MD Active OMEPRAZOLE 20 MG CPDR 1 tablet by mouth daily for GERD OMEPRAZOLE 62846495903 No Longer Active Adam Yates MD A ctive ZOFRAN 8 MG TABS 1 tab by mouth every 12 hours prn 201 05/16/09 ONDANSETRON HCL 38534803768 No Longer Active Adam Yates MD Active PHENADOZ 25 MG SUPP 1 every 4 hrs. PRN PROMETHA ZINE HCL 96439939210 No Longer Active Adam Yates MD Active POTASSIUM CHLORIDE 20 MEQ PACK by mouth twice a day prn POTASSIUM CHLORIDE 12683917616 No Longer Active Adam Yates MD Active PROMETHAZINE HCL 25 MG TABS 1 Q. 4 hr. PRN PROM ETHAZINE HCL 54103982290 No Longer Active Adam Yates MD Active INNOPRAN XL 120 MG [id number] Take one by mouth daily 2 PROPRANOLOL HCL SR BEADS 57382385423 No Longer Active Adam Yates MD A ctive FLAGYL 500 MG TABS 1 pill by mouth three times daily, for diarrh ea METRONIDAZOLE 64033977424 No Longer Active Hope Benavidez MD PhD Active DYAZIDE 37.5-25 MG CAPS 1 qd TRIAMTERENE-HC TZ 38302082937 No Longer Active Hope Benavidez MD PhD Active PROZAC 20 MG CAPS 1 q d FLUOXETINE HCL 97754 732643 No Longer Active Hope Benavidez MD PhD Active SIMVASTATIN 40 MG TABS 1 qd SIMVASTATIN 004 29105105 No Longer Active Adam Yates MD Active MELOXICAM 15 MG TABS 1 qd MELOXICAM 4137150 7948 No Longer Active Adam Yates MD Active IMODIUM A-D 2 MG TABS 2 onset at diarrhea and prn. LOPERAMIDE HCL 39630235757 Active Hope Benavidez MD PhD Active EXCEDRIN EXTRA STRENGTH 250-250-65 MG TABS 1-2 q6h PRN headache 201 04/16/21 [id number] 47643600461 Active Hope Benavidez MD PhD Active FLAGYL 500 MG TABS 1 qid METRONIDAZOLE 08661 321486 No Longer Active Adam Yates MD Active LEVAQUIN 750 MG TABS 1 qd LEVOFLOXACIN 5486 7933454 No Longer Active Adam Yates MD Active ADULT ASPIRIN LOW STRENGTH 81 MG TBDP 1 qd A SPIRIN 61728833477 Active Hope Benavidez MD PhD Active LEVAQUIN 750 MG TABS 1 qd LEVAQUIN 750 MG T ABS 841253 LEVOFLOXACIN Inactive FLAGYL 500 MG TABS 1 qid FLAGYL 500 MG TABS 590097 METRONIDAZOLE Inactive MELOXICAM 15 MG TABS 1 qd MELOXICAM 15 MG T ABS 430804 MELOXICAM Inactive SIMVASTATIN 40 MG TABS 1 qd SIMVASTATIN 40 MG TABS 037900 SIMVASTATIN Inactive PROZAC 20 MG CAPS 1 q d PROZAC 20 MG CAPS 31 0385 FLUOXETINE HCL Inactive DYAZIDE 37.5-25 MG CAPS 1 qd DYAZIDE 37.5 -25 MG CAPS 221365 TRIAMTERENE-HCTZ Inactive INNOPRAN XL 120 MG [id number] Take one by mouth daily 2 INNOPRAN XL 120 MG [id number] PROPRANOLOL HCL SR BEADS Inactive PROMETHAZINE HCL 25 MG TABS 1 Q. 4 hr. PRN PROMETHAZINE HCL 25 MG TABS 573490 PROMETHAZINE HCL Inactive POTASSIUM CHLORIDE 20 MEQ PACK by mouth twice a day prn POTASSIUM CHLORIDE 20 MEQ PACK 176460 POTASSIUM CHLORIDE Inactive PHENADOZ 25 MG SUPP 1 every 4 hrs. PRN PHENADOZ 2 5 MG SUPP 506240 PROMETHAZINE HCL Inactive ZOFRAN 8 MG TABS 1 tab by mouth every 12 hours prn 201 05/16/09 ZOFRAN 8 MG TABS 428055 ONDANSETRON HCL Inactive OMEPRAZOLE 20 MG CPDR 1 tablet by mouth daily for GERD OMEPRAZOLE 20 MG CPDR 532352 OMEPRAZOLE Inactive CYCLOBENZAPRINE HCL 10 MG TABS 1 tablet by mouth three times daily as needed for headaches CYCLOBENZAPRINE HCL 10 MG TABS 375483 CYCLOBENZAPRINE HCL Inactive VITAMIN D3 4000 IU 1 tab 3 times daily VITAMIN D3 4000 IU Inactive PROPRANOLOL HCL 80 MG TABS 1 tab tue. and thur. 04/10 PROPRANOLOL HCL 80 MG TABS 472733 PROPRANOLOL HCL Inactive FLAGYL 500 MG TABS 1 pill by mouth three times daily, for diarrh ea FLAGYL 500 MG TABS 705037 METRONIDAZOLE Inactive BACTRIM DS 800-160 MG TABS [...] Range Description Chart Maintenance: labs added to [facility] - Chemistry magnesium, serum 2.0 mg/dL Chart Maintenance: Outside labs entered on [facility] [employer] - Chemistry sodium, serum 139 mmol/L potassium, serum 3.9 mmol/L blood glucose 85 mg/dL creatinine, serum 1.26 mg/dL aspartate aminotransferase (SGOT), serum 33 U/L alanine aminotransferase (SGPT), serum 44 U/L alkaline phosphatase, serum 127 U/L Chart Maintenance: Outside labs entered on [employer] - Hematology leukocyte count, blood 4.6 10*3/mm3 hemoglobin, blood 13.6 g/dL platelet count 162 10*3/mm3 Lab Report: Basic Metabolic Panel - Chem istry sodium, serum 136 mmol/L 730-583 3478/05/02 potassium, serum 4.1 mmol/L 3.5-5.2 chloride, serum [...] 1.16 mg/dL Lab Report: CBC W/ DIFF, [facility], AN AEROBIC CX - Chemistry sodium, serum 137 mmol/L potassium, serum 3.8 mmol/L blood glucose 79 mg/dL creatinine, serum 1.02 mg/dL magnesium, serum 1.2 mg/dL Lab Report: CBC W/ DIFF, [facility], AN AEROBIC CX - Hematology leukocyte count, blood 8.7 10*3/mm3 hemoglobin, blood 10.8 g/dL platelet count 319 10*3/mm3 Lab Report: CBC W/DIFF, Comp. Metabolic Panel - Chemistry sodium, serum 138 mmol/L 811-528 5566/08/14 potassium, serum 4.0 mmol/L 3.5-5.2 chloride, serum [...] 0.40 mg/dL 0.00-1.00 sodium, serum 145 mmol/L 354-805 7054/02/02 potassium, serum 4.2 mmol/L 3.5-5.2 chloride, serum 104 mmol/L 98-107 carbon dioxide, venous blood 28.3 mmol/L 21.0-32 .0 blood glucose 93 mg/dL 65-110 urea nitrogen, blood 32 mg/dL 7-18 creatinine, serum 1.40 mg/dL 0.60-1.30 alanine aminotransferase (SGPT), serum 73 U/L aspartate aminotransferase (SGOT), serum 42 U/L 15-37 calcium, serum 9.2 mg/dL 8.5-10.1 bilirubin, serum, total 0.40 mg/dL 0.00-1.00 sodium, serum 142 mmol/L 417-918 5195/04/27 potassium, serum 3.2 mmol/L 3.5-5.2 chloride, serum 101 mmol/L 98-107 carbon dioxide, venous blood 32.1 mmol/L 21.0-32 .0 blood glucose 115 mg/dL 65-110 urea nitrogen, blood 28 mg/dL 7-18 creatinine, serum 1.60 mg/dL 0.60-1.30 alanine aminotransferase (SGPT), serum 71 U/L - aspartate aminotransferase (SGOT), serum 46 U/L 15-37 [...] 11 .6-14.8 platelet count 155 10^3/MM^3 10*3/mm3 957-135 6160/04/27 leukocyte count, blood 5.3 10^3/MM^3 10*3/mm3 4.6-10.2 [...] 11 .6-14.8 platelet count 213 10^3/MM^3 10*3/mm3 037-781 2086/08/14 leukocyte count, blood 5.8 10^3/MM^3 10*3/mm3 4.6-10.2 [...] - Chem istry sodium, serum 143 mmol/L 603-030 0584/04/15 potassium, serum 3.4 mmol/L 3.5-5.2 chloride, serum [...] Panel - Chemistry cholesterol, serum 209 mg/dL 100-100 3351/09/11 triglyceride, serum, fasting 113 mg/dL 30-200 HDL [...] semiquantitative 7.0 5.0-8.5 Lab Report: VITAMIN D, 25-HYDROXY/90198, MAGNESIUM/622 - Chemistry vitamin D 25-hydroxy, serum 41 ng/mL 30-100 Encounters Code Encounter Date Provider Facility CPT-83714 Level 4 Est. Patient 12:08:30 [employer] Hope cohn MD PhD [facility] CPT-88536 Level 4 Est. Patient 19:08:42 [employer] Hope cohn MD PhD [facility] CPT-16672 Level 4 Est. Patient 20:04:51 CDT Hope cohn MD PhD [facility] CPT-02597 Level 3 New Patient 01:46:11 [employer] Hope landers MD PhD [facility] Procedures Code Procedure Name Date Entry Date Standard Desc ription CPT-OV Office Visit 15:58:06 CDT CPT-J0897 Prolia 60 mg 08:45:38 CDT CPT-03310 Abx/Therapy Injection 08:45:38 CDT CPT-J3420 Vitamin B12 1000mcg (Cyanocobalamin) 09:26:20 [employer] CPT-40783 Abx/Therapy Injection 09:26:20 [employer] CPT-J3420 Vitamin B12 1000mcg (Cyanocobalamin) 09:44:40 [employer] CPT-36995 Abx/Therapy Injection 09:44:40 [employer] CPT-J3420 Vitamin B12 1000mcg (Cyanocobalamin) 09:15:54 [employer] CPT-06759 Abx/Therapy Injection 09:15:54 [employer] CPT-J3420 Vitamin B12 1000mcg (Cyanocobalamin) 09:46:44 [employer] CPT-16776 Abx/Therapy Injection 09:46:44 [employer] CPT-J3420 Vitamin B12 1000mcg (Cyanocobalamin) 09:47:34 [employer] CPT-04735 Abx/Therapy Injection 09:47:34 [employer] CPT-J3420 Vitamin B12 1000mcg (Cyanocobalamin) 14:35:50 [employer] CPT-J3420 Vitamin B12 1000mcg (Cyanocobalamin) 09:25:05 [employer] CPT-50415 Abx/Therapy Injection 09:25:05 [employer] CPT-G0008 Administration of Influenza Virus Vaccine 13:36:47 CDT CPT-04402 Fluzone High-Dose Intramuscular Suspension 11/15 13:36:47 CDT CPT-J0897 Prolia 60 mg 08:50:41 CDT CPT-90795 Abx/Therapy Injection 08:50:41 CDT CPT-60498 Bone Density 12:06:12 CDT CPT-99498 Bone Density 08:54:40 CDT CPT-OV Office Visit 15:37:02 CDT CPT-86610 Postop F/U Visit 15:47:49 CDT CPT-57596 Postop F/U Visit 15:21:02 CDT CPT-[facility] Transitional Care Mgmt-High 07:52:27 CDT 20 20/06/01 CPT-46135 Venipuncture Draw Fee 13:51:18 CDT CPT-03537 Venipuncture Draw Fee 10:14:55 [employer] CPT-82276 Venipuncture Draw Fee 13:39:45 [employer] CPT-OV Office Visit 15:11:22 [employer] CPT-31059 Venipuncture Draw Fee 09:20:49 [employer] CPT-65542 Venipuncture Draw Fee 16:52:15 [employer] CPT-72020 Venipuncture Draw Fee 10:37:24 [employer] CPT-34350 Venipuncture Draw Fee 08:21:21 [employer] CPT-76622 Venipuncture Draw Fee 08:30:20 [employer] CPT-68690 Venipuncture Draw Fee 14:53:21 [employer] CPT-04060 Venipuncture Draw Fee 09:40:56 [employer] CPT-79289 Venipuncture Draw Fee 10:30:47 [employer] CPT-74015 Venipuncture Draw Fee 10:46:17 [employer] CPT-48604 Venipuncture Draw Fee 11:12:45 [employer] CPT-93010 Venipuncture Draw Fee 09:53:33 [employer] CPT-45477 Venipuncture Draw Fee 11:53:51 [employer] CPT-06375 Venipuncture Draw Fee 10:33:50 [employer] CPT-97209 Venipuncture Draw Fee 10:05:01 [employer] CPT-35222 Venipuncture Draw Fee 14:32:52 [employer] CPT-10897 Venipuncture Draw Fee 09:46:13 [employer] CPT-42788 Venipuncture Draw Fee 11:34:27 [employer] CPT-60991 Venipuncture Draw Fee 13:17:16 [employer] CPT-98089 Venipuncture Draw Fee 12:05:39 CDT CPT-45244 Venipuncture Draw Fee 12:49:12 CDT CPT-26529 Venipuncture Draw Fee 12:37:18 CDT CPT-36625 Venipuncture Draw Fee 10:57:11 CDT CPT-93922 Venipuncture Draw Fee 13:47:40 CDT CPT-81935 Venipuncture Draw Fee 10:02:17 CDT CPT-07664 TB Tubersol 17:32:32 CDT CPT-OV Office Visit 16:21:53 CDT CPT-OV Office Visit 15:49:22 CDT CPT-OV Office Visit 17:16:31 CDT CPT-OV Office Visit 10:43:31 CDT
--- OUTSIDE RECORDS SUMMARY | 2019-02-09 12:52 | XMS REPORT | Clinical Summary ---
Author Author Renaldo, Florecita Munoz Organization [facility] Address Unknown Phone Unavailable Allergies, Adverse Reactions, [...] PhD Hyperpotassemia GERD 530.81 Resolved Kylie Yokum PEDIGREE TRACER Esophageal reflux Health maintenance exam V70.0 Resolved Adolfo Yates MD Routine general medical examination at a health care facility Anemia 285.9 Resolved Kylie Holt PEDIGREE TRACER Anemia, unspecified Personal history of malignant neoplasm [...] Sebaceous cyst, scalp 706.2 Resolved Kylie Holt PEDIGREE TRACER Sebaceous cyst Cervical lymphadenopathy, anterior, left 785.6 Resolv ed Kylie Holt PEDIGREE TRACER Enlargement of lymph nodes Need for prophylactic vaccination and inoculation against in fluenza V04.81 Resolved Adam Yates MD Need for prophylactic vaccination and inoculation against influenza Preventive health care V70.0 Active Kylie Holt PEDIGREE TRACER Routine general medical examination at a health care facility Thyroid nodule, left 241.0 Active Kylie Holt A PRN Nontoxic uninodular goiter Screening mammogram V76.12 Active Kylie Holt AP RN Other screening mammogram Mandy 706.2 Active Adam Yates MD Sebaceous cyst ABDOMINAL PAIN, RIGHT LOWER QUADRANT ICD-789.03 Inactive Kina Joshua PEDIGREE TRACER ADENOCARCINOMA, COLON, 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 Dick Yates MD ABDOMINAL PAIN, GENERALIZED ICD-789.07 Inactive Hope Benavidez MD PhD FEVER UNSPECIFIED ICD-780.60 Inactive Hope cohn MD PhD UNSPECIFIED VENOUS INSUFFICIENCY ICD-459.81 [place] ctive Adam Yates MD ADENOCARCINOMA, 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 Inac tive Hope Benavidez MD PhD Hyperkalemia ICD-276.7 Inactive Hope Benavidez MD PhD GERD ICD-530.81 Inactive Kylie Holt PEDIGREE TRACER 2015 Health maintenance exam ICD-V70.0 Bam Yates MD Anemia ICD-285.9 Inactive Kylie Holt PEDIGREE TRACER 07/24 Weakness ICD-780.79 Inactive Hope Benavidez MD [...] Sebaceous cyst, scalp ICD-706.2 Inactive Tracy Holt PEDIGREE TRACER Cervical lymphadenopathy, anterior, left ICD-785.6 Inactive Kylie Holt PEDIGREE TRACER Need for prophylactic vaccination and inoculation against in fluenza ICD-V04.81 Bam Yates MD Medication List Medication Instructions Start Date Stop Date Generic Name NDC Status Provider Patient Instruction VITAMIN D3 2000 UNIT ORAL CAPS Melaleuca-One daily CHOLECALCIFEROL [id number] Active Kylie Yokum PEDIGREE TRACER Active PROBIOTIC DAILY ORAL CAPS Take one daily PROBIOTIC PRODUCT 39735106190 Active Kylie Holt PEDIGREE TRACER Active IRON 325 (65 FE) MG TABS 1 every other day FERR OUS SULFATE 50085158924 No Longer Active Kylie Holt PEDIGREE TRACER Active FLORANEX PACK 1 pack three times daily, for bowel health LACTOBACILLUS 29562566092 No Longer Active Kylie Holt PEDIGREE TRACER Active LOMOTIL 2.5-0.025 MG TABS 1 tab by mouth prn 4 DIPHENOXYLATE-ATROPINE 11431043640 No Longer Active Kylie Lundum PEDIGREE TRACER Active MAGNESIUM GLUCONATE 250 MG TABS 1 tab tid 4 MAGNESIUM GLUCONATE 07161574053 No Longer Active Kylie Holt PEDIGREE TRACER Active CYANOCOBALAMIN 1000 MCG/ML INJ SOLN 1 injection every 2 weeks 20 20/01/03 CYANOCOBALAMIN 55863767147 No Longer Active Kylie Holt PEDIGREE TRACER Active ATENOLOL 25 MG ORAL TABS 1/2 pill by mouth daily, for headac hes, blood pressure ATENOLOL 40749841996 Active Kylie Holt PEDIGREE TRACER Active PROPRANOLOL HCL 80 MG TABS 1 tab tue. and thur. 04/10 PROPRANOLOL HCL 58957262691 No Longer Active Hope Benavidez MD PhD A ctive VITAMIN D3 4000 IU 1 tab 3 times daily VITAMIN D3 4000 IU No Longer Active Hope Benavidez MD PhD Active BACTRIM DS 800-160 MG TABS 1 pill by mouth twice daily, for UTI SULFAMETHOXAZOLE-TRIMETHOPRIM 75937628305 No Longer Active A attila Benavidez MD PhD Active PROLIA 60 MG/ML SOLN 1 shot every 6 months for osteoprosis DENOSUMAB 73335228336 Active Hope Benavidez MD PhD Active CALCIUM + D + K 750-500-40 MG-UNT-MCG TABS 1 tab by mouth tw ice daily CALCIUM-VITAMIN D-VITAMIN K 96684863798 Active Hope landers MD PhD Active DAILY VALUE MULTIVITAMIN TABS 1 tab by mouth twice daily MULTIPLE VITAMIN 73505122209 Active Hope Benavidez MD PhD Active FISH OIL 306 MG CAPS 1 tab by mouth three times daily OMEGA-3 FATTY ACIDS 34447053226 Active Hope Benavidez MD PhD Active LUTEIN 10 MG TABS 1 tab daily LUTEIN 96473792729 Act cash Hope Benavidez MD PhD Active TRIAMTERENE-HCTZ 37.5-25 MG TABS 1 tab by mouth daily TRIAMTERENE-HCTZ 84687797904 Active Kylieshubham Holt PEDIGREE TRACER Active CYCLOBENZAPRINE HCL 10 MG TABS 1 tablet by mouth three times daily as needed for headaches CYCLOBENZAPRINE HCL 04031518563 No Longe r Active Adam Yates MD Active OMEPRAZOLE 20 MG CPDR 1 tablet by mouth daily for GERD OMEPRAZOLE 21770416388 No Longer Active Adam Yates MD A ctive ZOFRAN 8 MG TABS 1 tab by mouth every 12 hours prn 201 05/16/09 ONDANSETRON HCL 58094666808 No Longer Active Adam Yates MD Active PHENADOZ 25 MG SUPP 1 every 4 hrs. PRN PROMETHA ZINE HCL 84971787826 No Longer Active Adam Yates MD Active POTASSIUM CHLORIDE 20 MEQ PACK by mouth twice a day prn POTASSIUM CHLORIDE 68237474551 No Longer Active Adam Yates MD Active PROMETHAZINE HCL 25 MG TABS 1 Q. 4 hr. PRN PROM ETHAZINE HCL 89263643077 No Longer Active Adam Yates MD Active INNOPRAN XL 120 MG [id number] Take one by mouth daily 2 PROPRANOLOL HCL SR BEADS 22415389860 No Longer Active Adam Yates MD A ctive FLAGYL 500 MG TABS 1 pill by mouth three times daily, for diarrh ea METRONIDAZOLE 97594722401 No Longer Active Hope Benavidez MD PhD Active DYAZIDE 37.5-25 MG CAPS 1 qd TRIAMTERENE-HC TZ 24351431650 No Longer Active Hope Benavidez MD PhD Active PROZAC 20 MG CAPS 1 q d FLUOXETINE HCL 25854 973589 No Longer Active Hope Benavidez MD PhD Active SIMVASTATIN 40 MG TABS 1 qd SIMVASTATIN 004 81872817 No Longer Active Adam Yates MD Active MELOXICAM 15 MG TABS 1 qd MELOXICAM 7600437 7845 No Longer Active Adam Yates MD Active IMODIUM A-D 2 MG TABS 2 onset at diarrhea and prn. LOPERAMIDE HCL 48668160196 Active Hope Benavidez MD PhD Active EXCEDRIN EXTRA STRENGTH 250-250-65 MG TABS 1-2 q6h PRN headache 201 04/16/21 [id number] 96874697609 Active Hope Benavidez MD PhD Active FLAGYL 500 MG TABS 1 qid METRONIDAZOLE 74497 724429 No Longer Active Adam Yates MD Active LEVAQUIN 750 MG TABS 1 qd LEVOFLOXACIN 5486 7325979 No Longer Active Adam Yates MD Active ADULT ASPIRIN LOW STRENGTH 81 MG TBDP 1 qd A SPIRIN 86795351863 Active Hope Benavidez MD PhD Active LEVAQUIN 750 MG TABS 1 qd LEVAQUIN 750 MG T ABS 951633 LEVOFLOXACIN Inactive FLAGYL 500 MG TABS 1 qid FLAGYL 500 MG TABS 802192 METRONIDAZOLE Inactive MELOXICAM 15 MG TABS 1 qd MELOXICAM 15 MG T ABS 580596 MELOXICAM Inactive SIMVASTATIN 40 MG TABS 1 qd SIMVASTATIN 40 MG TABS 286200 SIMVASTATIN Inactive PROZAC 20 MG CAPS 1 q d PROZAC 20 MG CAPS 31 0385 FLUOXETINE HCL Inactive DYAZIDE 37.5-25 MG CAPS 1 qd DYAZIDE 37.5 -25 MG CAPS 597772 TRIAMTERENE-HCTZ Inactive INNOPRAN XL 120 MG [id number] Take one by mouth daily 2 INNOPRAN XL 120 MG [id number] PROPRANOLOL HCL SR BEADS Inactive PROMETHAZINE HCL 25 MG TABS 1 Q. 4 hr. PRN PROMETHAZINE HCL 25 MG TABS 953167 PROMETHAZINE HCL Inactive POTASSIUM CHLORIDE 20 MEQ PACK by mouth twice a day prn POTASSIUM CHLORIDE 20 MEQ PACK 551322 POTASSIUM CHLORIDE Inactive PHENADOZ 25 MG SUPP 1 every 4 hrs. PRN PHENADOZ 2 5 MG SUPP 821473 PROMETHAZINE HCL Inactive ZOFRAN 8 MG TABS 1 tab by mouth every 12 hours prn 201 05/16/09 ZOFRAN 8 MG TABS 861363 ONDANSETRON HCL Inactive OMEPRAZOLE 20 MG CPDR 1 tablet by mouth daily for GERD OMEPRAZOLE 20 MG CPDR 630082 OMEPRAZOLE Inactive CYCLOBENZAPRINE HCL 10 MG TABS 1 tablet by mouth three times daily as needed for headaches CYCLOBENZAPRINE HCL 10 MG TABS 637094 CYCLOBENZAPRINE HCL Inactive VITAMIN D3 4000 IU 1 tab 3 times daily VITAMIN D3 4000 IU Inactive PROPRANOLOL HCL 80 MG TABS 1 tab tue. and thur. 04/10 PROPRANOLOL HCL 80 MG TABS 936617 PROPRANOLOL HCL Inactive CYANOCOBALAMIN 1000 MCG/ML INJ SOLN 1 injection every 2 weeks 20 20/01/03 CYANOCOBALAMIN 1000 MCG/ML INJ SOLN 275054 CYANOCOBALAM IN Inactive MAGNESIUM GLUCONATE 250 MG TABS 1 tab tid 4 MAGNESIUM GLUCONATE 250 MG TABS 027225 MAGNESIUM GLUCONATE Inactive LOMOTIL 2.5-0.025 MG TABS 1 tab by mouth prn 4 LOMOTIL 2.5- 0.025 MG TABS 2767404 DIPHENOXYLATE-ATROPINE Inactive FLORANEX PACK 1 pack three times daily, for bowel health FLORANEX PACK LACTOBACILLUS Inactive IRON 325 (65 FE) MG TABS 1 every other day IRON 325 (65 FE) MG TABS 585926 FERROUS SULFATE Inactive FLAGYL 500 MG TABS 1 pill by mouth three times daily, for diarrh ea FLAGYL 500 MG TABS 114256 METRONIDAZOLE Inactive BACTRIM DS 800-160 MG TABS 1 pill by mouth twice daily, for UTI BACTRIM DS 800-160 MG TABS 035623 SULFAMETHOXAZOLE-TRIM ETHOPRIM Inactive Advance Directives Directive Description [...] Panel - Chemistry sodium, serum 142 mmol/L 685-830 1842/04/20 carbon dioxide, venous blood 34.7 mmol/L 21.0-32 [...] ... - Chemistry sodium, serum 139 mmol/L 644-096 6723/10/20 carbon dioxide, venous blood 32.2 mmol/L 21.0-32 [...] - Chemi stry cholesterol, serum 200 mg/dL 703-753 5376/11/22 triglyceride, serum, fasting 129 mg/dL 30-200 HDL cholesterol, serum 56 mg/dL 32-96 LDL cholesterol, serum 118 mg/dL 0-130 calcium, serum 9.0 mg/dL 8.5-10.1 Lab Report: MicroAlb Random w/creat/6517 - Urinalysis microalbumin/total urine volume 8 mg/L Units converted. See lab report for original value. microalbumin/creatinine ratio, urine 15 MCG/MG CREAT mg/L <30 Encounters Code Encounter Date Provider Facility CPT-51125 Level 3 New Patient 16:22:01 MANAGER SHELL Adam Yates MD [facility] CPT-85624 Level 4 Est. Patient 17:00:48 CDT Kylie Kevon [facility] CPT-91359 Level 3 Est. Patient 13:15:54 CDT [facility] CPT-39574 Level 3 Est. Patient 09:10:11 CDT [facility] CPT-14992 Level 4 Est. Patient 12:08:30 MANAGER SHELL Hope cohn MD [facility] CPT-21173 Level 4 Est. Patient 19:08:42 MANAGER SHELL Hope cohn MD [facility] CPT-67308 Level 4 Est. Patient 20:04:51 CDT Hope cohn MD [facility] CPT-14635 Level 3 New Patient 01:46:11 MANAGER SHELL Hope landers MD PhD [facility] Procedures Code Procedure Name Date Entry Date Standard Desc ription CPT-J0897 Prolia 60 mg 14:14:16 MANAGER SHELL CPT-96208 Abx/Therapy Injection 14:14:15 MANAGER SHELL CPT-95147 Lipid - LAB USE ONLY 10:01:52 MANAGER SHELL 2 CPT-47487 Calcium - LAB USE ONLY 10:01:51 MANAGER SHELL CPT-01890 Venipuncture Draw Fee 10:01:51 MANAGER SHELL CPT-LR Lesion Removal 16:22:01 MANAGER SHELL CPT-91051 TSH - LAB USE ONLY 14:26:02 CDT CPT-97786 CMP - LAB USE ONLY 14:26:01 CDT CPT-80918 CBC with Diff - LAB USE ONLY 14:26:01 CDT 2 CPT-13414 Venipuncture Draw Fee 14:26:01 CDT CPT-04664 First Vx - Ix admin for Medicare patients 13:27:08 CDT CPT-98471 Fluzone High-Dose Intramuscular Suspension 11/26 13:27:08 CDT CPT-G0438 Initial Annual Wellness Exam 14:19:57 CD T CPT-G0009 Administration of Pneumococcal Vaccine 9 11:36:25 CDT CPT-58342 Prevnar 13 Intramuscular Suspension 1 1:36:25 CDT CPT-21855 Prevnar 13 Intramuscular Suspension 1 0:40:58 CDT CPT-J0897 Prolia 60 mg 10:37:16 CDT CPT-58351 Abx/Therapy Injection 10:37:16 CDT CPT-J0897 Prolia 60 mg 16:09:34 MANAGER SHELL CPT-J0897 Prolia 60 mg 11:10:35 MANAGER SHELL CPT-41619 Abx/Therapy Injection 11:10:35 MANAGER SHELL CPT-000 Give Appropriate Flu Vaccine 17:01:15 MANAGER SHELL 2 CPT-93867 Fluzone High Dose (65+) 15:03:08 MANAGER SHELL 02/15 CPT-07785 Immunization Single Admin 15:03:08 MANAGER SHELL 2014 CPT-OV Office Visit 15:58:06 CDT CPT-J0897 Prolia 60 mg 08:45:38 CDT CPT-31618 Abx/Therapy Injection 08:45:38 CDT CPT-J3420 Vitamin B12 1000mcg (Cyanocobalamin) 09:26:20 MANAGER SHELL CPT-81672 Abx/Therapy Injection 09:26:20 MANAGER SHELL CPT-J3420 Vitamin B12 1000mcg (Cyanocobalamin) 09:44:40 MANAGER SHELL CPT-84493 Abx/Therapy Injection 09:44:40 MANAGER SHELL CPT-J3420 Vitamin B12 1000mcg (Cyanocobalamin) 09:15:54 MANAGER SHELL CPT-31592 Abx/Therapy Injection 09:15:54 MANAGER SHELL CPT-J3420 Vitamin B12 1000mcg (Cyanocobalamin) 09:46:44 MANAGER SHELL CPT-36290 Abx/Therapy Injection 09:46:44 MANAGER SHELL CPT-J3420 Vitamin B12 1000mcg (Cyanocobalamin) 09:47:34 MANAGER SHELL CPT-59430 Abx/Therapy Injection 09:47:34 MANAGER SHELL CPT-J3420 Vitamin B12 1000mcg (Cyanocobalamin) 14:35:50 MANAGER SHELL CPT-J3420 Vitamin B12 1000mcg (Cyanocobalamin) 09:25:05 MANAGER SHELL CPT-42340 Abx/Therapy Injection 09:25:05 MANAGER SHELL CPT-G0008 Administration of Influenza Virus Vaccine 13:36:47 CDT CPT-74212 Fluzone High-Dose Intramuscular Suspension 11/15 13:36:47 CDT CPT-J0897 Prolia 60 mg 08:50:41 CDT CPT-16730 Abx/Therapy Injection 08:50:41 CDT CPT-97933 Bone Density 12:06:12 CDT CPT-06045 Bone Density 08:54:40 CDT CPT-OV Office Visit 15:37:02 CDT CPT-89920 Postop F/U Visit 15:47:49 CDT CPT-63158 Postop F/U Visit 15:21:02 CDT CPT-TCMH Transitional Care Mgmt-High 07:52:27 CDT 20 20/06/01 CPT-16571 Venipuncture Draw Fee 13:51:18 CDT CPT-17760 Venipuncture Draw Fee 10:14:55 MANAGER SHELL CPT-92329 Venipuncture Draw Fee 13:39:45 MANAGER SHELL CPT-OV Office Visit 15:11:22 MANAGER SHELL CPT-25904 Venipuncture Draw Fee 09:20:49 MANAGER SHELL CPT-42644 Venipuncture Draw Fee 16:52:15 MANAGER SHELL CPT-70527 Venipuncture Draw Fee 10:37:24 MANAGER SHELL CPT-22244 Venipuncture Draw Fee 08:21:21 MANAGER SHELL CPT-13969 Venipuncture Draw Fee 08:30:20 MANAGER SHELL CPT-53769 Venipuncture Draw Fee 14:53:21 MANAGER SHELL CPT-06771 Venipuncture Draw Fee 09:40:56 MANAGER SHELL CPT-12309 Venipuncture Draw Fee 10:30:47 MANAGER SHELL CPT-72746 Venipuncture Draw Fee 10:46:17 MANAGER SHELL CPT-96697 Venipuncture Draw Fee 11:12:45 MANAGER SHELL CPT-88224 Venipuncture Draw Fee 09:53:33 MANAGER SHELL CPT-65110 Venipuncture Draw Fee 11:53:51 MANAGER SHELL CPT-32412 Venipuncture Draw Fee 10:33:50 MANAGER SHELL CPT-77190 Venipuncture Draw Fee 10:05:01 MANAGER SHELL CPT-43293 Venipuncture Draw Fee 14:32:52 MANAGER SHELL CPT-32959 Venipuncture Draw Fee 09:46:13 MANAGER SHELL CPT-54542 Venipuncture Draw Fee 11:34:27 MANAGER SHELL CPT-92260 Venipuncture Draw Fee 13:17:16 MANAGER SHELL CPT-41511 Venipuncture Draw Fee 12:05:39 CDT CPT-24413 Venipuncture Draw Fee 12:49:12 CDT CPT-64724 Venipuncture Draw Fee 12:37:18 CDT CPT-04037 Venipuncture Draw Fee 10:57:11 CDT CPT-77775 Venipuncture Draw Fee 13:47:40 CDT CPT-79373 Venipuncture Draw Fee 10:02:17 CDT CPT-97983 TB Tubersol 17:32:32 CDT CPT-OV Office Visit 16:21:53 CDT CPT-OV Office Visit 15:49:22 CDT CPT-OV Office Visit 17:16:31 CDT CPT-OV Office Visit 10:43:31 CDT
--- OUTSIDE RECORDS SUMMARY | 2019-02-09 12:52 | XMS REPORT | Clinical Summary ---
Author Author Renaldo, Florecita Munoz Organization [facility] Address Unknown Phone Unavailable Allergies, Adverse Reactions, [...] Hyperpotassemia GERD 530.81 Resolved Kylie Yokum SAL[employer]PRESENT[employer]IVE [employer] Esophageal reflux Health maintenance exam V70.0 Resolved Adolfo Yates MD Routine general medical examination at a health care facility Anemia 285.9 Resolved Kylie Holt [employer]ENT[employer] Anemia, unspecified Personal history of malignant neoplasm [...] Sebaceous cyst, scalp 706.2 Resolved Kylie Holt SAL[employer]ENT[employer] Sebaceous cyst Cervical lymphadenopathy, anterior, left 785.6 Resolv ed Kylie Holt SAL[employer] Enlargement of lymph nodes Need for prophylactic vaccination and inoculation against in fluenza V04.81 Resolved Adam Yates MD Need for prophylactic vaccination and inoculation against influenza Preventive health care V70.0 Active Kylie Holt SAL[employer]ENT[employer]IVE [employer] Routine general medical examination at a health care facility Thyroid nodule, left 241.0 Active Kylie Gonzalez PRN Nontoxic uninodular goiter Screening mammogram V76.12 Active Kylie Holt AP RN Other screening mammogram Mandy 706.2 Active Adam Yates MD Sebaceous cyst Colon cancer, ascending 153.6 Active Kelsy F aux RMA Malignant neoplasm of ascending colon ABDOMINAL PAIN, RIGHT LOWER QUADRANT ICD-789.03 Inactive Kina Joshua SALES REPRESENT[employer]IVE [employer] ADENOCARCINOMA, COLON, 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 Dick Yates MD ABDOMINAL PAIN, GENERALIZED ICD-789.07 Inactive Hope Benavidez MD PhD FEVER UNSPECIFIED ICD-780.60 Inactive Hope cohn MD PhD UNSPECIFIED VENOUS INSUFFICIENCY ICD-459.81 Arabi ctive Adam Yates MD ADENOCARCINOMA, 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 Inac abdelrahman Benavidez MD PhD Hyperkalemia ICD-276.7 Inactive Hope Benavidez MD PhD GERD ICD-530.81 Inactive Kylie Holt SAL[employer]ENT[employer]IVE [employer] 2015 Health maintenance exam ICD-V70.0 Inactive Adolfo Yates MD Anemia ICD-285.9 Inactive Kylie Holt [employer]IVE [employer] 07/24 Weakness ICD-780.79 Inactive Hope Benavidez MD [...] Sebaceous cyst, scalp ICD-706.2 Inactive Tracy Holt SAL[employer] REPRESENT[employer]IVE [employer] Cervical lymphadenopathy, anterior, left ICD-785.6 Inactive Kylie Holt SAL[employer] Need for prophylactic vaccination and inoculation against in fluenza ICD-V04.81 Bam Yates MD Medication List Medication Instructions Start Date Stop Date Generic Name NDC Status Provider Patient Instruction VITAMIN D3 2000 UNIT ORAL CAPS Melaleuca-One daily CHOLECALCIFEROL [id number] Active Kylie Holt APRN Active PROBIOTIC DAILY ORAL CAPS Take one daily PROBIOTIC PRODUCT 69281049318 Active Kylie Holt APRN Active IRON 325 (65 FE) MG TABS 1 every other day FERR OUS SULFATE 59820714425 No Longer Active Kylie Holt APRN Active FLORANEX PACK 1 pack three times daily, for bowel health LACTOBACILLUS 64327143385 No Longer Active Kylie Holt APRN Active LOMOTIL 2.5-0.025 MG TABS 1 tab by mouth prn 4 DIPHENOXYLATE-ATROPINE 50874090351 No Longer Active Kylie Holt APRN Active MAGNESIUM GLUCONATE 250 MG TABS 1 tab tid 4 MAGNESIUM GLUCONATE 68530813014 No Longer Active Kylie Holt APRN Active CYANOCOBALAMIN 1000 MCG/ML INJ SOLN 1 injection every 2 weeks 20 20/01/03 CYANOCOBALAMIN 45546605028 No Longer Active Kylie Holt APRN Active ATENOLOL 25 MG ORAL TABS 1/2 pill by mouth daily, for headac hes, blood pressure ATENOLOL 42996135605 Active Kylie Holt APRN Active PROPRANOLOL HCL 80 MG TABS 1 tab tue. and thur. 04/10 PROPRANOLOL HCL 31904846886 No Longer Active Hope Benavidez MD PhD A ctive VITAMIN D3 4000 IU 1 tab 3 times daily VITAMIN D3 4000 IU No Longer Active Hope Benavidez MD PhD Active BACTRIM DS 800-160 MG TABS 1 pill by mouth twice daily, for UTI SULFAMETHOXAZOLE-TRIMETHOPRIM 68379933787 No Longer Active A attila Benavidez MD PhD Active PROLIA 60 MG/ML SOLN 1 shot every 6 months for osteoprosis DENOSUMAB 48351625750 Active Hope Benavidez MD PhD Active CALCIUM + D + K 750-500-40 MG-UNT-MCG TABS 1 tab by mouth tw ice daily CALCIUM-VITAMIN D-VITAMIN K 97345756625 Active Hope landers MD PhD Active DAILY VALUE MULTIVITAMIN TABS 1 tab by mouth twice daily MULTIPLE VITAMIN 81329329955 Active Hope Benavidez MD PhD Active FISH OIL 306 MG CAPS 1 tab by mouth three times daily OMEGA-3 FATTY ACIDS 69941386978 Active Hope Benavidez MD PhD Active LUTEIN 10 MG TABS 1 tab daily LUTEIN 90448395770 Act cash Hope Benavidez MD PhD Active TRIAMTERENE-HCTZ 37.5-25 MG TABS 1 tab by mouth daily TRIAMTERENE-HCTZ 77192360850 Active Kylie Lundoliver REYES Active CYCLOBENZAPRINE HCL 10 MG TABS 1 tablet by mouth three times daily as needed for headaches CYCLOBENZAPRINE HCL 13923868118 No Longe r Active Adam Yates MD Active OMEPRAZOLE 20 MG CPDR 1 tablet by mouth daily for GERD OMEPRAZOLE 95156781433 No Longer Active Adam Yates MD A ctive ZOFRAN 8 MG TABS 1 tab by mouth every 12 hours prn 201 05/16/09 ONDANSETRON HCL 17118272233 No Longer Active Adam Yates MD Active PHENADOZ 25 MG SUPP 1 every 4 hrs. PRN PROMETHA ZINE HCL 07501994908 No Longer Active Adam Yates MD Active POTASSIUM CHLORIDE 20 MEQ PACK by mouth twice a day prn POTASSIUM CHLORIDE 61209333902 No Longer Active Adam Yates MD Active PROMETHAZINE HCL 25 MG TABS 1 Q. 4 hr. PRN PROM ETHAZINE HCL 04380793462 No Longer Active Adam Yates MD Active INNOPRAN XL 120 MG [id number] Take one by mouth daily 2 PROPRANOLOL HCL SR BEADS 09097409509 No Longer Active Adam Yates MD A ctive FLAGYL 500 MG TABS 1 pill by mouth three times daily, for diarrh ea METRONIDAZOLE 10871073962 No Longer Active Hope Benavidez MD PhD Active DYAZIDE 37.5-25 MG CAPS 1 qd TRIAMTERENE-HC TZ 09958096756 No Longer Active Hope Benavidez MD PhD Active PROZAC 20 MG CAPS 1 q d FLUOXETINE HCL 78965 729334 No Longer Active Hope Benavidez MD PhD Active SIMVASTATIN 40 MG TABS 1 qd SIMVASTATIN 004 06020927 No Longer Active Adam Yates MD Active MELOXICAM 15 MG TABS 1 qd MELOXICAM 0770316 5648 No Longer Active Adam Yates MD Active IMODIUM A-D 2 MG TABS 2 onset at diarrhea and prn. LOPERAMIDE HCL 49182675501 Active Hope Benavidez MD PhD Active EXCEDRIN EXTRA STRENGTH 250-250-65 MG TABS 1-2 q6h PRN headache 201 04/16/21 OYYHAZT-QVGYSSRICYPJA-WNTCKWWT 37575677068 Active Hope Benavidez MD PhD Active FLAGYL 500 MG TABS 1 qid METRONIDAZOLE 53897 922044 No Longer Active Adam Yates MD Active LEVAQUIN 750 MG TABS 1 qd LEVOFLOXACIN 5486 3872287 No Longer Active Adam Yates MD Active ADULT ASPIRIN LOW STRENGTH 81 MG TBDP 1 qd A SPIRIN 89054155599 Active Hope Benavidez MD PhD Active LEVAQUIN 750 MG TABS 1 qd LEVAQUIN 750 MG T ABS 326186 LEVOFLOXACIN Inactive FLAGYL 500 MG TABS 1 qid FLAGYL 500 MG TABS 713126 METRONIDAZOLE Inactive MELOXICAM 15 MG TABS 1 qd MELOXICAM 15 MG T ABS 249351 MELOXICAM Inactive SIMVASTATIN 40 MG TABS 1 qd SIMVASTATIN 40 MG TABS 884758 SIMVASTATIN Inactive PROZAC 20 MG CAPS 1 q d PROZAC 20 MG CAPS 31 0385 FLUOXETINE HCL Inactive DYAZIDE 37.5-25 MG CAPS 1 qd DYAZIDE 37.5 -25 MG CAPS 890401 TRIAMTERENE-HCTZ Inactive INNOPRAN XL 120 MG [id number] Take one by mouth daily 2 INNOPRAN XL 120 MG [id number] PROPRANOLOL HCL SR BEADS Inactive PROMETHAZINE HCL 25 MG TABS 1 Q. 4 hr. PRN PROMETHAZINE HCL 25 MG TABS 544270 PROMETHAZINE HCL Inactive POTASSIUM CHLORIDE 20 MEQ PACK by mouth twice a day prn POTASSIUM CHLORIDE 20 MEQ PACK 348279 POTASSIUM CHLORIDE Inactive PHENADOZ 25 MG SUPP 1 every 4 hrs. PRN PHENADOZ 2 5 MG SUPP 768478 PROMETHAZINE HCL Inactive ZOFRAN 8 MG TABS 1 tab by mouth every 12 hours prn 201 05/16/09 ZOFRAN 8 MG TABS 996232 ONDANSETRON HCL Inactive OMEPRAZOLE 20 MG CPDR 1 tablet by mouth daily for GERD OMEPRAZOLE 20 MG CPDR 069030 OMEPRAZOLE Inactive CYCLOBENZAPRINE HCL 10 MG TABS 1 tablet by mouth three times daily as needed for headaches CYCLOBENZAPRINE HCL 10 MG TABS 218818 CYCLOBENZAPRINE HCL Inactive VITAMIN D3 4000 IU 1 tab 3 times daily VITAMIN D3 4000 IU Inactive PROPRANOLOL HCL 80 MG TABS 1 tab tue. and thur. 04/10 PROPRANOLOL HCL 80 MG TABS 475890 PROPRANOLOL HCL Inactive CYANOCOBALAMIN 1000 MCG/ML INJ SOLN 1 injection every 2 weeks 20 20/01/03 CYANOCOBALAMIN 1000 MCG/ML INJ SOLN 537527 CYANOCOBALAM IN Inactive MAGNESIUM GLUCONATE 250 MG TABS 1 tab tid 4 MAGNESIUM GLUCONATE 250 MG TABS 656619 MAGNESIUM GLUCONATE Inactive LOMOTIL 2.5-0.025 MG TABS 1 tab by mouth prn 4 LOMOTIL 2.5- 0.025 MG TABS 2138526 DIPHENOXYLATE-ATROPINE Inactive FLORANEX PACK 1 pack three times daily, for bowel health FLORANEX PACK LACTOBACILLUS Inactive IRON 325 (65 FE) MG TABS 1 every other day IRON 325 (65 FE) MG TABS 303370 FERROUS SULFATE Inactive FLAGYL 500 MG TABS 1 pill by mouth three times daily, for diarrh ea FLAGYL 500 MG TABS 223237 METRONIDAZOLE Inactive BACTRIM DS 800-160 MG TABS 1 pill by mouth twice daily, for UTI BACTRIM DS 800-160 MG TABS 642140 SULFAMETHOXAZOLE-TRIM ETHOPRIM Inactive Advance Directives Directive Description [...] Panel - Chemistry sodium, serum 142 mmol/L 711-455 5869/04/20 carbon dioxide, venous blood 34.7 mmol/L 21.0-32 [...] ... - Chemistry sodium, serum 139 mmol/L 922-674 1180/10/20 carbon dioxide, venous blood 32.2 mmol/L 21.0-32 [...] - Chemi stry cholesterol, serum 200 mg/dL 394-810 0367/11/22 triglyceride, serum, fasting 129 mg/dL 30-200 HDL cholesterol, serum 56 mg/dL 32-96 LDL cholesterol, serum 118 mg/dL 0-130 calcium, serum 9.0 mg/dL 8.5-10.1 Lab Report: MicroAlb Random w/creat/6517 - Urinalysis microalbumin/total urine volume 8 mg/L Units converted. See lab report for original value. microalbumin/creatinine ratio, urine 15 MCG/MG CREAT mg/L <30 Encounters Code Encounter Date Provider Facility CPT-82121 Level 3 New Patient 16:22:01 INSIDE POLISHER Adam Yates MD [facility] CPT-97441 Level 4 Est. Patient 17:00:48 CDT Kylie [facility] CPT-26503 Level 3 Est. Patient 13:15:54 CDT [facility] CPT-05800 Level 3 Est. Patient 09:10:11 CDT [facility] CPT-97521 Level 4 Est. Patient 12:08:30 INSIDE POLISHER Hope cohn MD [facility] CPT-46412 Level 4 Est. Patient 19:08:42 INSIDE POLISHER Hope cohn MD [facility] CPT-20481 Level 4 Est. Patient 20:04:51 CDT Hope cohn MD [facility] CPT-37063 Level 3 New Patient 01:46:11 INSIDE POLISHER Hope landers MD PhD [facility] Procedures Code Procedure Name Date Entry Date Standard Desc ription CPT-J0897 Prolia 60 mg 14:14:16 INSIDE POLISHER CPT-94066 Abx/Therapy Injection 14:14:15 INSIDE POLISHER CPT-38309 Lipid - LAB USE ONLY 10:01:52 INSIDE POLISHER 2 CPT-81726 Calcium - LAB USE ONLY 10:01:51 INSIDE POLISHER CPT-51492 Venipuncture Draw Fee 10:01:51 INSIDE POLISHER CPT-LR Lesion Removal 16:22:01 INSIDE POLISHER CPT-32121 TSH - LAB USE ONLY 14:26:02 CDT CPT-15897 CMP - LAB USE ONLY 14:26:01 CDT CPT-65849 CBC with Diff - LAB USE ONLY 14:26:01 CDT 2 CPT-83763 Venipuncture Draw Fee 14:26:01 CDT CPT-93930 First Vx - Ix admin for Medicare patients 13:27:08 CDT CPT-86556 Fluzone High-Dose Intramuscular Suspension 11/26 13:27:08 CDT CPT-G0438 Initial Annual Wellness Exam 14:19:57 CD T CPT-G0009 Administration of Pneumococcal Vaccine 9 11:36:25 CDT CPT-07635 Prevnar 13 Intramuscular Suspension 1 1:36:25 CDT CPT-56792 Prevnar 13 Intramuscular Suspension 1 0:40:58 CDT CPT-J0897 Prolia 60 mg 10:37:16 CDT CPT-00521 Abx/Therapy Injection 10:37:16 CDT CPT-J0897 Prolia 60 mg 16:09:34 INSIDE POLISHER CPT-J0897 Prolia 60 mg 11:10:35 INSIDE POLISHER CPT-37788 Abx/Therapy Injection 11:10:35 INSIDE POLISHER CPT-000 Give Appropriate Flu Vaccine 17:01:15 INSIDE POLISHER 2 CPT-05995 Fluzone High Dose (65+) 15:03:08 INSIDE POLISHER 02/15 CPT-68451 Immunization Single Admin 15:03:08 INSIDE POLISHER 2014 CPT-OV Office Visit 15:58:06 CDT CPT-J0897 Prolia 60 mg 08:45:38 CDT CPT-15756 Abx/Therapy Injection 08:45:38 CDT CPT-J3420 Vitamin B12 1000mcg (Cyanocobalamin) 09:26:20 INSIDE POLISHER CPT-04658 Abx/Therapy Injection 09:26:20 INSIDE POLISHER CPT-J3420 Vitamin B12 1000mcg (Cyanocobalamin) 09:44:40 INSIDE POLISHER CPT-11092 Abx/Therapy Injection 09:44:40 INSIDE POLISHER CPT-J3420 Vitamin B12 1000mcg (Cyanocobalamin) 09:15:54 INSIDE POLISHER CPT-90867 Abx/Therapy Injection 09:15:54 INSIDE POLISHER CPT-J3420 Vitamin B12 1000mcg (Cyanocobalamin) 09:46:44 INSIDE POLISHER CPT-76357 Abx/Therapy Injection 09:46:44 INSIDE POLISHER CPT-J3420 Vitamin B12 1000mcg (Cyanocobalamin) 09:47:34 INSIDE POLISHER CPT-65950 Abx/Therapy Injection 09:47:34 INSIDE POLISHER CPT-J3420 Vitamin B12 1000mcg (Cyanocobalamin) 14:35:50 INSIDE POLISHER CPT-J3420 Vitamin B12 1000mcg (Cyanocobalamin) 09:25:05 INSIDE POLISHER CPT-92952 Abx/Therapy Injection 09:25:05 INSIDE POLISHER CPT-G0008 Administration of Influenza Virus Vaccine 13:36:47 CDT CPT-44455 Fluzone High-Dose Intramuscular Suspension 11/15 13:36:47 CDT CPT-J0897 Prolia 60 mg 08:50:41 CDT CPT-26744 Abx/Therapy Injection 08:50:41 CDT CPT-92130 Bone Density 12:06:12 CDT CPT-28724 Bone Density 08:54:40 CDT CPT-OV Office Visit 15:37:02 CDT CPT-47872 Postop F/U Visit 15:47:49 CDT CPT-94856 Postop F/U Visit 15:21:02 CDT CPT-TCM Transitional Care Mgmt-High 07:52:27 CDT 20 20/06/01 CPT-28282 Venipuncture Draw Fee 13:51:18 CDT CPT-01649 Venipuncture Draw Fee 10:14:55 INSIDE POLISHER CPT-12679 Venipuncture Draw Fee 13:39:45 INSIDE POLISHER CPT-OV Office Visit 15:11:22 INSIDE POLISHER CPT-86698 Venipuncture Draw Fee 09:20:49 INSIDE POLISHER CPT-68274 Venipuncture Draw Fee 16:52:15 INSIDE POLISHER CPT-37791 Venipuncture Draw Fee 10:37:24 INSIDE POLISHER CPT-46697 Venipuncture Draw Fee 08:21:21 INSIDE POLISHER CPT-44008 Venipuncture Draw Fee 08:30:20 INSIDE POLISHER CPT-23450 Venipuncture Draw Fee 14:53:21 INSIDE POLISHER CPT-91934 Venipuncture Draw Fee 09:40:56 INSIDE POLISHER CPT-22444 Venipuncture Draw Fee 10:30:47 INSIDE POLISHER CPT-89174 Venipuncture Draw Fee 10:46:17 INSIDE POLISHER CPT-05251 Venipuncture Draw Fee 11:12:45 INSIDE POLISHER CPT-23875 Venipuncture Draw Fee 09:53:33 INSIDE POLISHER CPT-95864 Venipuncture Draw Fee 11:53:51 INSIDE POLISHER CPT-12272 Venipuncture Draw Fee 10:33:50 INSIDE POLISHER CPT-49494 Venipuncture Draw Fee 10:05:01 INSIDE POLISHER CPT-98281 Venipuncture Draw Fee 14:32:52 INSIDE POLISHER CPT-07206 Venipuncture Draw Fee 09:46:13 INSIDE POLISHER CPT-98555 Venipuncture Draw Fee 11:34:27 INSIDE POLISHER CPT-65389 Venipuncture Draw Fee 13:17:16 INSIDE POLISHER CPT-41045 Venipuncture Draw Fee 12:05:39 CDT CPT-81172 Venipuncture Draw Fee 12:49:12 CDT CPT-52663 Venipuncture Draw Fee 12:37:18 CDT CPT-47485 Venipuncture Draw Fee 10:57:11 CDT CPT-70023 Venipuncture Draw Fee 13:47:40 CDT CPT-28395 Venipuncture Draw Fee 10:02:17 CDT CPT-74904 TB Tubersol 17:32:32 CDT CPT-OV Office Visit 16:21:53 CDT CPT-OV Office Visit 15:49:22 CDT CPT-OV Office Visit 17:16:31 CDT CPT-OV Office Visit 10:43:31 CDT
--- OUTSIDE RECORDS SUMMARY | 2019-02-09 12:52 | XMS REPORT | Clinical Summary ---
Author Author Renaldo, Florecita Munoz Organization [facility] [employer] Address Unknown Phone Unavailable Allergies, Adverse Reactions, [...] PhD Hyperpotassemia GERD 530.81 Resolved Kylie Yokum CAP INSPECTOR Esophageal reflux Health maintenance exam V70.0 Resolved Adolfo Yates MD Routine general medical examination at a health care facility Anemia 285.9 Resolved Kylie Holt CAP INSPECTOR Anemia, unspecified Personal history of malignant [...] Sebaceous cyst, scalp 706.2 Resolved Kylieshubham Lundum CAP INSPECTOR Sebaceous cyst Cervical lymphadenopathy, anterior, left 785.6 Resolv ed Kylie Escalonagabbium CAP INSPECTOR Enlargement of lymph nodes Need for prophylactic vaccination and inoculation against in fluenza V04.81 Active Citlaly Watkins RMA Need for prophylactic vaccination and inoculation against influenza Preventive health care V70.0 Active Kylie Polapari CAP INSPECTOR Routine general medical examination at a health care facility Thyroid nodule, left 241.0 Active Kylie Polagabbium A PRN Nontoxic uninodular goiter ABDOMINAL PAIN, RIGHT LOWER QUADRANT ICD-789.03 Inactive Kina Joshua CAP INSPECTOR ADENOCARCINOMA, COLON, 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 Dick Yates MD ABDOMINAL PAIN, GENERALIZED ICD-789.07 Inactive Hope Benavidez MD PhD FEVER UNSPECIFIED ICD-780.60 Inactive Hope cohn MD PhD UNSPECIFIED VENOUS INSUFFICIENCY ICD-459.81 [place] ctive Adam Yates MD ADENOCARCINOMA, 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 Inac tive Hope Benavidez MD PhD Hyperkalemia ICD-276.7 Inactive Hope Benavidez MD PhD GERD ICD-530.81 Inactive Kylie Holt CAP INSPECTOR 2015 Health maintenance exam ICD-V70.0 Bam Yates MD Anemia ICD-285.9 Inactive Kylie Lundum CAP INSPECTOR 07/24 Weakness ICD-780.79 Inactive Hope Benavidez MD P hD Aftercare following surgery of the teeth,oral cavity a nd digestive system, NEC ICD-V58.75 Inactive Adam Yates MD Colon cancer ICD-153.9 Inactive Adam luna MD Asymptomatic postmenopausal status (age-related) (natural) I CD-V49.81 Inactive Hope Benavidez MD PhD Dysuria ICD-788.1 Inactive Hope Benavidez MD PhD 201 05/19/01 Sebaceous cyst, scalp ICD-706.2 Inactive Tracy Lundum CAP INSPECTOR Cervical lymphadenopathy, anterior, left ICD-785.6 Inactive Kylie Lundum CAP INSPECTOR Medication List Medication Instructions Start Date Stop Date Generic Name NDC Status Provider Patient Instruction VITAMIN D3 2000 UNIT ORAL CAPS Melaleuca-One daily CHOLECALCIFEROL [id number] Active Kylie Lundum CAP INSPECTOR Active PROBIOTIC DAILY ORAL CAPS Take one daily PROBIOTIC PRODUCT 02993215355 Active Kylie Yokum CAP INSPECTOR Active IRON 325 (65 FE) MG TABS 1 every other day FERR OUS SULFATE 81655981633 No Longer Active Kylie Yokum CAP INSPECTOR Active FLORANEX PACK 1 pack three times daily, for bowel health LACTOBACILLUS 31371020825 No Longer Active Kylie Yokum CAP INSPECTOR Active LOMOTIL 2.5-0.025 MG TABS 1 tab by mouth prn 4 DIPHENOXYLATE-ATROPINE 23312218358 No Longer Active Kylie Yokum CAP INSPECTOR Active MAGNESIUM GLUCONATE 250 MG TABS 1 tab tid 4 MAGNESIUM GLUCONATE 12486902590 No Longer Active Kylie Yokum CAP INSPECTOR Active CYANOCOBALAMIN 1000 MCG/ML INJ SOLN 1 injection every 2 weeks 20 20/01/03 CYANOCOBALAMIN 99684233866 No Longer Active Kylie Yokum CAP INSPECTOR Active ATENOLOL 25 MG ORAL TABS 1/2 pill by mouth daily, for headac hes, blood pressure ATENOLOL 61138722446 Active Kylie Yokum CAP INSPECTOR Active PROPRANOLOL HCL 80 MG TABS 1 tab tue. and thur. 04/10 PROPRANOLOL HCL 26872365903 No Longer Active Hope Benavidez MD PhD A ctive VITAMIN D3 4000 IU 1 tab 3 times daily VITAMIN D3 4000 IU No Longer Active Hope Benavidez MD PhD Active BACTRIM DS 800-160 MG TABS 1 pill by mouth twice daily, for UTI SULFAMETHOXAZOLE-TRIMETHOPRIM 54426330518 No Longer Active A attila Benavidez MD PhD Active PROLIA 60 MG/ML SOLN 1 shot every 6 months for osteoprosis DENOSUMAB 90250101826 Active Hope Benavidez MD PhD Active CALCIUM + D + K 750-500-40 MG-UNT-MCG TABS 1 tab by mouth tw ice daily CALCIUM-VITAMIN D-VITAMIN K 51822905863 Active Hope landers MD PhD Active DAILY VALUE MULTIVITAMIN TABS 1 tab by mouth twice daily MULTIPLE VITAMIN 33155167488 Active Hope Benavidez MD PhD Active FISH OIL 306 MG CAPS 1 tab by mouth three times daily OMEGA-3 FATTY ACIDS 52257165415 Active Hope Benavidez MD PhD Active LUTEIN 10 MG TABS 1 tab daily LUTEIN 22299849050 Act cash Hope Benavidez MD PhD Active TRIAMTERENE-HCTZ 37.5-25 MG TABS 1 tab by mouth daily TRIAMTERENE-HCTZ 64068441706 Active Kylie Yokum CAP INSPECTOR Active CYCLOBENZAPRINE HCL 10 MG TABS 1 tablet by mouth three times daily as needed for headaches CYCLOBENZAPRINE HCL 97627950305 No Longe r Active Adam Yates MD Active OMEPRAZOLE 20 MG CPDR 1 tablet by mouth daily for GERD OMEPRAZOLE 91119491953 No Longer Active Adam Yates MD A ctive ZOFRAN 8 MG TABS 1 tab by mouth every 12 hours prn 201 05/16/09 ONDANSETRON HCL 24177864907 No Longer Active Adam Yates MD Active PHENADOZ 25 MG SUPP 1 every 4 hrs. PRN PROMETHA ZINE HCL 68051272064 No Longer Active Adam Yates MD Active POTASSIUM CHLORIDE 20 MEQ PACK by mouth twice a day prn POTASSIUM CHLORIDE 78438933112 No Longer Active Adam Yates MD Active PROMETHAZINE HCL 25 MG TABS 1 Q. 4 hr. PRN PROM ETHAZINE HCL 33145009197 No Longer Active Adam Yates MD Active INNOPRAN XL 120 MG [id number] Take one by mouth daily 2 PROPRANOLOL HCL SR BEADS 08317720117 No Longer Active Adam Yates MD A ctive FLAGYL 500 MG TABS 1 pill by mouth three times daily, for diarrh ea METRONIDAZOLE 77736709896 No Longer Active Hope Benavidez MD PhD Active DYAZIDE 37.5-25 MG CAPS 1 qd TRIAMTERENE-HC TZ 19030144310 No Longer Active Hope Benavidez MD PhD Active PROZAC 20 MG CAPS 1 q d FLUOXETINE HCL 34397 139785 No Longer Active Hope Benavidez MD PhD Active SIMVASTATIN 40 MG TABS 1 qd SIMVASTATIN 004 21285118 No Longer Active Adam Yates MD Active MELOXICAM 15 MG TABS 1 qd MELOXICAM 8401045 7427 No Longer Active Adam Yates MD Active IMODIUM A-D 2 MG TABS 2 onset at diarrhea and prn. LOPERAMIDE HCL 98910971434 Active Hope Benavidez MD PhD Active EXCEDRIN EXTRA STRENGTH 250-250-65 MG TABS 1-2 q6h PRN headache 201 04/16/21 NVIIECV-AMGOINIPQAMGB-PQCTIHUK 63384010009 Active Hope Benavidez MD PhD Active FLAGYL 500 MG TABS 1 qid METRONIDAZOLE 23633 656809 No Longer Active Adam Yates MD Active LEVAQUIN 750 MG TABS 1 qd LEVOFLOXACIN 5486 9755066 No Longer Active Adam Yates MD Active ADULT ASPIRIN LOW STRENGTH 81 MG TBDP 1 qd A SPIRIN 43962393511 Active Hope Benavidez MD PhD Active LEVAQUIN 750 MG TABS 1 qd LEVAQUIN 750 MG T ABS 476649 LEVOFLOXACIN Inactive FLAGYL 500 MG TABS 1 qid FLAGYL 500 MG TABS 706196 METRONIDAZOLE Inactive MELOXICAM 15 MG TABS 1 qd MELOXICAM 15 MG T ABS 060774 MELOXICAM Inactive SIMVASTATIN 40 MG TABS 1 qd SIMVASTATIN 40 MG TABS 173286 SIMVASTATIN Inactive PROZAC 20 MG CAPS 1 q d PROZAC 20 MG CAPS 31 0385 FLUOXETINE HCL Inactive DYAZIDE 37.5-25 MG CAPS 1 qd DYAZIDE 37.5 -25 MG CAPS 376056 TRIAMTERENE-HCTZ Inactive INNOPRAN XL 120 MG [id number] Take one by mouth daily 2 INNOPRAN XL 120 MG [id number] PROPRANOLOL HCL SR BEADS Inactive PROMETHAZINE HCL 25 MG TABS 1 Q. 4 hr. PRN PROMETHAZINE HCL 25 MG TABS 119660 PROMETHAZINE HCL Inactive POTASSIUM CHLORIDE 20 MEQ PACK by mouth twice a day prn POTASSIUM CHLORIDE 20 MEQ PACK 479058 POTASSIUM CHLORIDE Inactive PHENADOZ 25 MG SUPP 1 every 4 hrs. PRN PHENADOZ 2 5 MG SUPP 783531 PROMETHAZINE HCL Inactive ZOFRAN 8 MG TABS 1 tab by mouth every 12 hours prn 201 05/16/09 ZOFRAN 8 MG TABS 875589 ONDANSETRON HCL Inactive OMEPRAZOLE 20 MG CPDR 1 tablet by mouth daily for GERD OMEPRAZOLE 20 MG CPDR 908014 OMEPRAZOLE Inactive CYCLOBENZAPRINE HCL 10 MG TABS 1 tablet by mouth three times daily as needed for headaches CYCLOBENZAPRINE HCL 10 MG TABS 698840 CYCLOBENZAPRINE HCL Inactive VITAMIN D3 4000 IU 1 tab 3 times daily VITAMIN D3 4000 IU Inactive PROPRANOLOL HCL 80 MG TABS 1 tab tue. and thur. 04/10 PROPRANOLOL HCL 80 MG TABS 503373 PROPRANOLOL HCL Inactive CYANOCOBALAMIN 1000 MCG/ML INJ SOLN 1 injection every 2 weeks 20 20/01/03 CYANOCOBALAMIN 1000 MCG/ML INJ SOLN 947589 CYANOCOBALAM IN Inactive MAGNESIUM GLUCONATE 250 MG TABS 1 tab tid 4 MAGNESIUM GLUCONATE 250 MG TABS 085992 MAGNESIUM GLUCONATE Inactive LOMOTIL 2.5-0.025 MG TABS 1 tab by mouth prn 4 LOMOTIL 2.5- 0.025 MG TABS 4458351 DIPHENOXYLATE-ATROPINE Inactive FLORANEX PACK 1 pack three times daily, for bowel health FLORANEX PACK LACTOBACILLUS Inactive IRON 325 (65 FE) MG TABS 1 every other day IRON 325 (65 FE) MG TABS 624870 FERROUS SULFATE Inactive FLAGYL 500 MG TABS 1 pill by mouth three times daily, for diarrh ea FLAGYL 500 MG TABS 704554 METRONIDAZOLE Inactive BACTRIM DS 800-160 MG TABS 1 pill by mouth twice daily, for UTI BACTRIM DS 800-160 MG TABS 789285 SULFAMETHOXAZOLE-TRIM ETHOPRIM Inactive Advance Directives Directive Description [...] Panel - Chemistry sodium, serum 142 mmol/L 953-858 2303/04/20 carbon dioxide, venous blood 34.7 mmol/L 21.0-32 .0 potassium, serum 3.5 mmol/L 3.5-5.2 chloride, serum 102 mmol/L 98-107 blood glucose 102 mg/dL 65-110 urea nitrogen, blood 24 mg/dL 7-18 creatinine, serum 1.37 mg/dL 0.55-1.30 alanine aminotransferase (SGPT), serum 72 U/L -78 aspartate aminotransferase (SGOT), serum 44 U/L 15-37 calcium, serum 9.0 mg/dL 8.5-10.1 bilirubin, serum, total 0.50 mg/dL 0.00-1.00 sodium, serum 138 mmol/L 664-837 8838/10/23 carbon dioxide, venous blood 29.5 mmol/L 21.0-32 [...] 11 .6-14.8 platelet count 189 10^3/MM^3 10*3/mm3 480-685 7953/04/20 leukocyte count, blood 5.9 10^3/MM^3 10*3/mm3 4.6-10.2 [...] 1.24 m[iU]/mL 0.36-3.74 cholesterol, serum 227 mg/dL 476-912 7531/10/23 triglyceride, serum, fasting 144 mg/dL 30-200 HDL cholesterol, serum 60 mg/dL 32-96 LDL cholesterol, serum 138 mg/dL 0-130 Lab Report: Lipid Panel, MICROALBUMIN, T hyroid Stimulating Hormone (L) - Lab microalbumin, urine 10 0-19 Encounters Code Encounter Date Provider Facility CPT-23567 Level 4 Est. Patient 17:00:48 CDT Kylie Lund [facility] CPT-76942 Level 3 Est. Patient 13:15:54 CDT Kylie Lund [facility] CPT-20267 Level 3 Est. Patient 09:10:11 CDT Kylie Lund [facility] CPT-72336 Level 4 Est. Patient 12:08:30 BALLET TEACHER Hope cohn MD PhD [facility] CPT-96301 Level 4 Est. Patient 19:08:42 BALLET TEACHER Hope cohn MD PhD [facility] CPT-50907 Level 4 Est. Patient 20:04:51 CDT Hope cohn MD PhD [facility] CPT-70039 Level 3 New Patient 01:46:11 BALLET TEACHER Hope landers MD PhD [facility] Procedures Code Procedure Name Date Entry Date Standard Desc ription CPT-G0438 Initial Annual Wellness Exam 14:19:57 CD T CPT-G0009 Administration of Pneumococcal Vaccine 9 11:36:25 CDT CPT-49078 Prevnar 13 Intramuscular Suspension 1 1:36:25 CDT CPT-66272 Prevnar 13 Intramuscular Suspension 1 0:40:58 CDT CPT-J0897 Prolia 60 mg 10:37:16 CDT CPT-18116 Abx/Therapy Injection 10:37:16 CDT CPT-J0897 Prolia 60 mg 16:09:34 BALLET TEACHER CPT-J0897 Prolia 60 mg 11:10:35 BALLET TEACHER CPT-25125 Abx/Therapy Injection 11:10:35 BALLET TEACHER CPT-000 Give Appropriate Flu Vaccine 17:01:15 BALLET TEACHER 2 CPT-32865 Fluzone High Dose (65+) 15:03:08 BALLET TEACHER 02/15 CPT-92426 Immunization Single Admin 15:03:08 BALLET TEACHER 2014 CPT-OV Office Visit 15:58:06 CDT CPT-J0897 Prolia 60 mg 08:45:38 CDT CPT-66053 Abx/Therapy Injection 08:45:38 CDT CPT-J3420 Vitamin B12 1000mcg (Cyanocobalamin) 09:26:20 BALLET TEACHER CPT-78602 Abx/Therapy Injection 09:26:20 BALLET TEACHER CPT-J3420 Vitamin B12 1000mcg (Cyanocobalamin) 09:44:40 BALLET TEACHER CPT-43194 Abx/Therapy Injection 09:44:40 BALLET TEACHER CPT-J3420 Vitamin B12 1000mcg (Cyanocobalamin) 09:15:54 BALLET TEACHER CPT-45157 Abx/Therapy Injection 09:15:54 BALLET TEACHER CPT-J3420 Vitamin B12 1000mcg (Cyanocobalamin) 09:46:44 BALLET TEACHER CPT-71554 Abx/Therapy Injection 09:46:44 BALLET TEACHER CPT-J3420 Vitamin B12 1000mcg (Cyanocobalamin) 09:47:34 BALLET TEACHER CPT-70372 Abx/Therapy Injection 09:47:34 BALLET TEACHER CPT-J3420 Vitamin B12 1000mcg (Cyanocobalamin) 14:35:50 BALLET TEACHER CPT-J3420 Vitamin B12 1000mcg (Cyanocobalamin) 09:25:05 BALLET TEACHER CPT-68293 Abx/Therapy Injection 09:25:05 BALLET TEACHER CPT-G0008 Administration of Influenza Virus Vaccine 13:36:47 CDT CPT-43683 Fluzone High-Dose Intramuscular Suspension 11/15 13:36:47 CDT CPT-J0897 Prolia 60 mg 08:50:41 CDT CPT-21383 Abx/Therapy Injection 08:50:41 CDT CPT-45072 Bone Density 12:06:12 CDT CPT-66732 Bone Density 08:54:40 CDT CPT-OV Office Visit 15:37:02 CDT CPT-48974 Postop F/U Visit 15:47:49 CDT CPT-90941 Postop F/U Visit 15:21:02 CDT CPT-TCMH Transitional Care Mgmt-High 07:52:27 CDT 20 20/06/01 CPT-97031 Venipuncture Draw Fee 13:51:18 CDT CPT-85605 Venipuncture Draw Fee 10:14:55 BALLET TEACHER CPT-11684 Venipuncture Draw Fee 13:39:45 BALLET TEACHER CPT-OV Office Visit 15:11:22 BALLET TEACHER CPT-43674 Venipuncture Draw Fee 09:20:49 BALLET TEACHER CPT-21650 Venipuncture Draw Fee 16:52:15 BALLET TEACHER CPT-14329 Venipuncture Draw Fee 10:37:24 BALLET TEACHER CPT-03757 Venipuncture Draw Fee 08:21:21 BALLET TEACHER CPT-45333 Venipuncture Draw Fee 08:30:20 BALLET TEACHER CPT-45184 Venipuncture Draw Fee 14:53:21 BALLET TEACHER CPT-45032 Venipuncture Draw Fee 09:40:56 BALLET TEACHER CPT-47798 Venipuncture Draw Fee 10:30:47 BALLET TEACHER CPT-32521 Venipuncture Draw Fee 10:46:17 BALLET TEACHER CPT-47875 Venipuncture Draw Fee 11:12:45 BALLET TEACHER CPT-34726 Venipuncture Draw Fee 09:53:33 BALLET TEACHER CPT-91008 Venipuncture Draw Fee 11:53:51 BALLET TEACHER CPT-11298 Venipuncture Draw Fee 10:33:50 BALLET TEACHER CPT-99511 Venipuncture Draw Fee 10:05:01 BALLET TEACHER CPT-79764 Venipuncture Draw Fee 14:32:52 BALLET TEACHER CPT-93888 Venipuncture Draw Fee 09:46:13 BALLET TEACHER CPT-44001 Venipuncture Draw Fee 11:34:27 BALLET TEACHER CPT-54125 Venipuncture Draw Fee 13:17:16 BALLET TEACHER CPT-29939 Venipuncture Draw Fee 12:05:39 CDT CPT-65074 Venipuncture Draw Fee 12:49:12 CDT CPT-05500 Venipuncture Draw Fee 12:37:18 CDT CPT-06816 Venipuncture Draw Fee 10:57:11 CDT CPT-64962 Venipuncture Draw Fee 13:47:40 CDT CPT-16305 Venipuncture Draw Fee 10:02:17 CDT CPT-71761 TB Tubersol 17:32:32 CDT CPT-OV Office Visit 16:21:53 CDT CPT-OV Office Visit 15:49:22 CDT CPT-OV Office Visit 17:16:31 CDT CPT-OV Office Visit 10:43:31 CDT
--- OUTSIDE RECORDS SUMMARY | 2019-02-09 12:52 | XMS REPORT | Clinical Summary ---
Author Author Renaldo, Florecita Munoz Organization [facility] Address Unknown Phone Unavailable Allergies, Adverse Reactions, [...] PhD Hyperpotassemia GERD 530.81 Resolved Kylie Yokum [employer] OFFICER Esophageal reflux Health maintenance exam V70.0 Resolved Adolfo Yates MD Routine general medical examination at a health care facility Anemia 285.9 Resolved Kylie Holt [employer]ERTY OFFIC[employer] Anemia, unspecified Personal history of malignant neoplasm of large intestine V10.05 Active Adam Yates MD Personal history of malignant neoplasm of large intestine Hypomagnesemia 275.2 Resolved Kylie Holt [employer]ERTY [employer]IC[employer] Disorders of magnesium metabolism Weakness 780.79 [...] Sebaceous cyst, scalp 706.2 Resolved Kylie Yokum [employer]ERTY OFFICER Sebaceous cyst Cervical lymphadenopathy, anterior, left 785.6 Resolv ed Kylie Yokum [employer]ERTY OFFICER Enlargement of lymph nodes Need for prophylactic vaccination and inoculation against in fluenza V04.81 Resolved Adam Yates MD Need for prophylactic vaccination and inoculation against influenza Preventive health care V70.0 Active Kylie Yokum [employer]ERTY OFFICER Routine general medical examination at a health care facility Thyroid nodule, left 241.0 Active Kylie Yokum A PRN Nontoxic uninodular goiter Screening mammogram V76.12 Active Kylie Yokum AP RN Other screening mammogram Mandy 706.2 Resolved Kylie Yokum [employer]ERTY OFFICER Sebaceous cyst Colon cancer, ascending 153.6 Resolved Kylie Yok um [employer]ERTY OFFICER Malignant neoplasm of ascending colon Foot pain, left 729.5 Active Sulema Schwarz [employer] Pain in limb Splinter 919.6 Active Kylie Yokum [employer]ERTY OFFICER Superficial foreign body (splinter) of other, multiple, and unspecified sites, without major open wound and without mention of infection ABDOMINAL PAIN, RIGHT LOWER QUADRANT ICD-789.03 Inactive Kina Joshua [employer]ERTY OFFICER ADENOCARCINOMA, COLON, 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 Dick Yates MD ABDOMINAL PAIN, GENERALIZED ICD-789.07 Inactive Hope Benavidez MD PhD FEVER UNSPECIFIED ICD-780.60 Inactive Hope cohn MD PhD UNSPECIFIED VENOUS INSUFFICIENCY ICD-459.81 Leda ctive Adam Yates MD ADENOCARCINOMA, 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 Inac tive Hope Benavidez MD PhD Hyperkalemia ICD-276.7 Inactive Hope Benavidez MD PhD GERD ICD-530.81 Inactive Kylie Holt PROPERTY OFFICER 2015 Health maintenance exam ICD-V70.0 Inactive Adolfo Yates MD Anemia ICD-285.9 Inactive Kylie Holt PROPERTY OFFICER 07/24 Hypomagnesemia ICD-275.2 Inactive Kylie Holt [employer]ERTY OFFICER Weakness ICD-780.79 Inactive Hope Benavidez MD P hD Aftercare following surgery of the teeth,oral cavity a nd digestive system, NEC ICD-V58.75 Inactive Adam Yates MD Colon cancer ICD-153.9 Inactive Adam luan MD Asymptomatic postmenopausal status (age-related) (natural) I CD-V49.81 Inactive Hope Benavidez MD PhD Diarrhea, functional ICD-564.5 Inactive Selena Yates MD Dysuria ICD-788.1 Inactive Hope Benavidez MD PhD 201 05/19/01 Adenocarcinoma, ascending colon ICD-153.6 Inac abdelrahman Yates MD Sebaceous cyst, scalp ICD-706.2 Inactive Tracy Holt [employer]ERTY OFFIC[employer] Cervical lymphadenopathy, anterior, left ICD-785.6 Inactive Kylie Holt [employer]ERTY OFFICER Need for prophylactic vaccination and inoculation against in fluenza ICD-V04.81 Inactive Adam Yates MD Mandy ICD-706.2 Inactive Kylie Holt [employer]ERTY OFFICER 07/20 Colon cancer, ascending ICD-153.6 Inactive Bravo Holt [employer]ERTY OFFICER Medication List Medication Instructions Start Date Stop Date Generic Name NDC Status Provider Patient Instruction COQ10 100 MG ORAL CAPS 1 daily COENZYME Q10 288087537 20 Active LETY Nation Active VITAMIN D3 2000 UNIT ORAL CAPS Melaleuca-One daily CHOLECALCIFEROL 30534336106 Active Kylie Holt APRN Active PROBIOTIC DAILY ORAL CAPS Take one daily PROBIOTIC PRODUCT 83571099118 Active Kylie Holt APRN Active IRON 325 (65 FE) MG TABS 1 every other day FERR OUS SULFATE 56027901840 No Longer Active Kylie Holt APRN Active FLORANEX PACK 1 pack three times daily, for bowel health LACTOBACILLUS 47253282863 No Longer Active Kylie Holt APRN Active LOMOTIL 2.5-0.025 MG TABS 1 tab by mouth prn 4 DIPHENOXYLATE-ATROPINE 33717358040 No Longer Active Kylie Holt APRN Active MAGNESIUM GLUCONATE 250 MG TABS 1 tab tid 4 MAGNESIUM GLUCONATE 09182425120 No Longer Active Kylie Lundum [employer]ERTY OFFICER Active CYANOCOBALAMIN 1000 MCG/ML INJ SOLN 1 injection every 2 weeks 20 20/01/03 CYANOCOBALAMIN 16109051116 No Longer Active Kylie Holt APRN Active ATENOLOL 25 MG ORAL TABS 1/2 pill by mouth daily, for headac hes, blood pressure ATENOLOL 16839181191 Active Kylieshubham Holt [employer]ERTY OFFICER Active PROPRANOLOL HCL 80 MG TABS 1 tab tue. and thur. 04/10 PROPRANOLOL HCL 05289277048 No Longer Active Hope Benavidez MD PhD A ctive VITAMIN D3 4000 IU 1 tab 3 times daily VITAMIN D3 4000 IU No Longer Active Hope Benavidez MD PhD Active BACTRIM DS 800-160 MG TABS 1 pill by mouth twice daily, for UTI SULFAMETHOXAZOLE-TRIMETHOPRIM 43101304376 No Longer Active A attila Benavidez MD PhD Active PROLIA 60 MG/ML SOLN 1 shot every 6 months for osteoprosis DENOSUMAB 38336251954 Active Hope Benavidez MD PhD Active CALCIUM + D + K 750-500-40 MG-UNT-MCG TABS 1 tab by mouth tw ice daily CALCIUM-VITAMIN D-VITAMIN K 60757921826 Active Hope landers MD PhD Active DAILY VALUE MULTIVITAMIN TABS 1 tab by mouth twice daily MULTIPLE VITAMIN 98748492710 Active Hope Benavidez MD PhD Active FISH OIL 306 MG CAPS 1 tab by mouth three times daily OMEGA-3 FATTY ACIDS 45620084650 Active Hope Benavidez MD PhD Active LUTEIN 10 MG TABS 1 tab daily LUTEIN 08182751186 Act cash Hope Benavidez MD PhD Active TRIAMTERENE-HCTZ 37.5-25 MG TABS 1 tab by mouth daily TRIAMTERENE-HCTZ 97827078263 Active Kylie Holt APRN Active CYCLOBENZAPRINE HCL 10 MG TABS 1 tablet by mouth three times daily as needed for headaches CYCLOBENZAPRINE HCL 96525661254 No Longe r Active Adam Yates MD Active OMEPRAZOLE 20 MG CPDR 1 tablet by mouth daily for GERD OMEPRAZOLE 61579322687 No Longer Active Adam Yates MD A ctive ZOFRAN 8 MG TABS 1 tab by mouth every 12 hours prn 201 05/16/09 ONDANSETRON HCL 21359062326 No Longer Active Adam Yates MD Active PHENADOZ 25 MG SUPP 1 every 4 hrs. PRN PROMETHA ZINE HCL 76203351841 No Longer Active Adam Yates MD Active POTASSIUM CHLORIDE 20 MEQ PACK by mouth twice a day prn POTASSIUM CHLORIDE 74323548479 No Longer Active Adam Yates MD Active PROMETHAZINE HCL 25 MG TABS 1 Q. 4 hr. PRN PROM ETHAZINE HCL 29079566510 No Longer Active Adam Yates MD Active INNOPRAN XL 120 MG [id number] Take one by mouth daily 2 PROPRANOLOL HCL SR BEADS 91284663879 No Longer Active Adam Yates MD A ctive FLAGYL 500 MG TABS 1 pill by mouth three times daily, for diarrh ea METRONIDAZOLE 44245044502 No Longer Active Hope Benavidez MD PhD Active DYAZIDE 37.5-25 MG CAPS 1 qd TRIAMTERENE-HC TZ 62611531123 No Longer Active Hope Benavidez MD PhD Active PROZAC 20 MG CAPS 1 q d FLUOXETINE HCL 25324 615411 No Longer Active Hope Benavidez MD PhD Active SIMVASTATIN 40 MG TABS 1 qd SIMVASTATIN 004 46187688 No Longer Active Adam Yates MD Active MELOXICAM 15 MG TABS 1 qd MELOXICAM 6583619 3945 No Longer Active Adam Yates MD Active IMODIUM A-D 2 MG TABS 2 onset at diarrhea and prn. LOPERAMIDE HCL 13129946253 Active Hope Benavidez MD PhD Active EXCEDRIN EXTRA STRENGTH 250-250-65 MG TABS 1-2 q6h PRN headache 201 04/16/21 [id number] 40804072275 Active Hope Benavidez MD PhD Active FLAGYL 500 MG TABS 1 qid METRONIDAZOLE 63662 829909 No Longer Active Adam Yates MD Active LEVAQUIN 750 MG TABS 1 qd LEVOFLOXACIN 5486 0151634 No Longer Active Adam Yates MD Active ADULT ASPIRIN LOW STRENGTH 81 MG TBDP 1 qd A SPIRIN 13654531911 Active Hope Benavidez MD PhD Active LEVAQUIN 750 MG TABS 1 qd LEVAQUIN 750 MG T ABS 907702 LEVOFLOXACIN Inactive FLAGYL 500 MG TABS 1 qid FLAGYL 500 MG TABS 317965 METRONIDAZOLE Inactive MELOXICAM 15 MG TABS 1 qd MELOXICAM 15 MG T ABS 743559 MELOXICAM Inactive SIMVASTATIN 40 MG TABS 1 qd SIMVASTATIN 40 MG TABS 161568 SIMVASTATIN Inactive PROZAC 20 MG CAPS 1 q d PROZAC 20 MG CAPS 31 0385 FLUOXETINE HCL Inactive DYAZIDE 37.5-25 MG CAPS 1 qd DYAZIDE 37.5 -25 MG CAPS 146270 TRIAMTERENE-HCTZ Inactive INNOPRAN XL 120 MG [id number] Take one by mouth daily 2 INNOPRAN XL 120 MG [id number] PROPRANOLOL HCL SR BEADS Inactive PROMETHAZINE HCL 25 MG TABS 1 Q. 4 hr. PRN PROMETHAZINE HCL 25 MG TABS 569688 PROMETHAZINE HCL Inactive POTASSIUM CHLORIDE 20 MEQ PACK by mouth twice a day prn POTASSIUM CHLORIDE 20 MEQ PACK 1336300 POTASSIUM CHLORIDE Inactive PHENADOZ 25 MG SUPP 1 every 4 hrs. PRN PHENADOZ 2 5 MG SUPP 878472 PROMETHAZINE HCL Inactive ZOFRAN 8 MG TABS 1 tab by mouth every 12 hours prn 201 05/16/09 ZOFRAN 8 MG TABS 613088 ONDANSETRON HCL Inactive OMEPRAZOLE 20 MG CPDR 1 tablet by mouth daily for GERD OMEPRAZOLE 20 MG CPDR 778982 OMEPRAZOLE Inactive CYCLOBENZAPRINE HCL 10 MG TABS 1 tablet by mouth three times daily as needed for headaches CYCLOBENZAPRINE HCL 10 MG TABS 058554 CYCLOBENZAPRINE HCL Inactive VITAMIN D3 4000 IU 1 tab 3 times daily VITAMIN D3 4000 IU Inactive PROPRANOLOL HCL 80 MG TABS 1 tab tue. and thur. 04/10 PROPRANOLOL HCL 80 MG TABS 982789 PROPRANOLOL HCL Inactive CYANOCOBALAMIN 1000 MCG/ML INJ SOLN 1 injection every 2 weeks 20 20/01/03 CYANOCOBALAMIN 1000 MCG/ML INJ SOLN 167298 CYANOCOBALAM IN Inactive MAGNESIUM GLUCONATE 250 MG TABS 1 tab tid 4 MAGNESIUM GLUCONATE 250 MG TABS 723744 MAGNESIUM GLUCONATE Inactive LOMOTIL 2.5-0.025 MG TABS 1 tab by mouth prn 4 LOMOTIL 2.5- 0.025 MG TABS 0286097 DIPHENOXYLATE-ATROPINE Inactive FLORANEX PACK 1 pack three times daily, for bowel health FLORANEX PACK LACTOBACILLUS Inactive IRON 325 (65 FE) MG TABS 1 every other day IRON 325 (65 FE) MG TABS 402821 FERROUS SULFATE Inactive FLAGYL 500 MG TABS 1 pill by mouth three times daily, for diarrh ea FLAGYL 500 MG TABS 019648 METRONIDAZOLE Inactive BACTRIM DS 800-160 MG TABS 1 pill by mouth twice daily, for UTI BACTRIM DS 800-160 MG TABS 235559 SULFAMETHOXAZOLE-TRIM ETHOPRIM Inactive Advance Directives Directive Description [...] 11 .0-15.0 platelet count 157 THOUSAND/UL 10*3/mm3 452-306 6634/04/20 mean platelet volume 8.9 fL 7.5-12.5 Lab Report: CEA - Serology carcinoembryonic antigen 0.9 ng/mL Lab Report: Lipid Panel, Calcium - Chemi stry cholesterol, serum 200 mg/dL 625-394 2687/11/22 triglyceride, serum, fasting 129 mg/dL 30-200 HDL cholesterol, serum 56 mg/dL 32-96 LDL cholesterol, serum 118 mg/dL 0-130 calcium, serum 9.0 mg/dL 8.5-10.1 Lab Report: MicroAlb Random w/creat/6517 - Urinalysis microalbumin/total urine volume 8 mg/L Units converted. See lab report for original value. microalbumin/creatinine ratio, urine 15 MCG/MG CREAT mg/L <30 Encounters Code Encounter Date Provider Facility CPT-03314 Level 3 Est. Patient 17:54:48 CDT Kylie boyd [facility] CPT-98596 Level 3 Est. Patient 16:26:30 CDT Kina blackmon [facility] [place] CPT-38459 Level 3 New Patient 16:22:01 COURT MESSENGER Adam Yates MD [facility] CPT-92220 Level 4 Est. Patient 17:00:48 CDT Kylie boyd [facility] CPT-39017 Level 3 Est. Patient 13:15:54 CDT yKlie Lund [facility] CPT-96475 Level 3 Est. Patient 09:10:11 CDT Kylie boyd [facility] CPT-35905 Level 4 Est. Patient 12:08:30 [address] MESSENGER Hope cohn MD [facility] CPT-00799 Level 4 Est. Patient 19:08:42 COURT MESSENGER Hope cohn MD PhD [facility] CPT-31784 Level 4 Est. Patient 20:04:51 CDT Hope cohn MD [facility] CPT-87207 Level 3 New Patient 01:46:11 COURT MESSENGER Hope landers MD PhD [facility] Procedures Code Procedure Name Date Entry Date Standard Desc ription CPT-14813 First Vx - Ix admin for Medicare patients 11:19:30 CDT CPT-34307 Fluzone High-Dose Intramuscular Suspension 12/07 11:19:30 CDT CPT-J0897 Prolia 60 mg 14:55:42 CDT CPT-03678 Abx/Therapy Injection 14:55:42 CDT CPT-62160 Bone Density - XRAY USE ONLY 10:27:12 CDT 2 CPT-G0439 Subsequent Annual Wellness Exam 17:54:53 CDT CPT-15630 Foot, left, comp min 3V - XRAY USE ONLY 12:22:49 CDT CPT-G0009 Administration of Pneumococcal Vaccine 3 12:18:00 CDT CPT-38118 Pneumovax 23 Injection Injectable 25 MCG /0.5ML 12:18:00 CDT CPT-J0897 Prolia 60 mg 14:14:16 COURT MESSENGER CPT-42579 Abx/Therapy Injection 14:14:[address] MESSENGER CPT-84036 Lipid - LAB USE ONLY 10:01:52 COURT MESSENGER 2 CPT-91439 Calcium - LAB USE ONLY 10:01:[address] COURT MESSENGER CPT-20096 Venipuncture Draw Fee 10:01:[address] MESSENGER CPT-LR Lesion Removal 16:22:[address] MESSENGER CPT-36923 TSH - LAB USE ONLY 14:26:02 CDT CPT-24051 CMP - LAB USE ONLY 14:26:01 CDT CPT-83430 CBC with Diff - LAB USE ONLY 14:26:01 CDT 2 CPT-41758 Venipuncture Draw Fee 14:26:01 CDT CPT-28992 First Vx - Ix admin for Medicare patients 13:27:08 CDT CPT-71003 Fluzone High-Dose Intramuscular Suspension 11/26 13:27:08 CDT CPT-G0438 Initial Annual Wellness Exam 14:19:57 CD T CPT-G0009 Administration of Pneumococcal Vaccine 9 11:36:25 CDT CPT-03000 Prevnar 13 Intramuscular Suspension 1 1:36:25 CDT CPT-06531 Prevnar 13 Intramuscular Suspension 1 0:40:58 CDT CPT-J0897 Prolia 60 mg 10:37:16 CDT CPT-61077 Abx/Therapy Injection 10:37:16 CDT CPT-J0897 Prolia 60 mg 16:09:34 [address] MESSENGER CPT-J0897 Prolia 60 mg 11:10:35 COURT MESSENGER CPT-98323 Abx/Therapy Injection 11:10:[address] MESSENGER CPT-000 Give Appropriate Flu Vaccine 17:01:15 COURT MESSENGER 2 CPT-83304 Fluzone High Dose (65+) 15:03:[address] MESSENGER 02/15 CPT-95735 Immunization Single Admin 15:03:08 COURT MESSENGER 2014 CPT-OV Office Visit 15:58:06 CDT CPT-J0897 Prolia 60 mg 08:45:38 CDT CPT-70612 Abx/Therapy Injection 08:45:38 CDT CPT-J3420 Vitamin B12 1000mcg (Cyanocobalamin) 09:26:20 COURT MESSENGER CPT-98887 Abx/Therapy Injection 09:26:[address] MESSENGER CPT-J3420 Vitamin B12 1000mcg (Cyanocobalamin) 09:44:[address] MESSENGER CPT-93181 Abx/Therapy Injection 09:44:[address] MESSENGER CPT-J3420 Vitamin B12 1000mcg (Cyanocobalamin) 09:15:54 COURT MESSENGER CPT-89166 Abx/Therapy Injection 09:15:[address] MESSENGER CPT-J3420 Vitamin B12 1000mcg (Cyanocobalamin) 09:46:[address] MESSENGER CPT-64178 Abx/Therapy Injection 09:46:[address] MESSENGER CPT-J3420 Vitamin B12 1000mcg (Cyanocobalamin) 09:47:[address] MESSENGER CPT-72751 Abx/Therapy Injection 09:47:[address] MESSENGER CPT-J3420 Vitamin B12 1000mcg (Cyanocobalamin) 14:35:50 COURT MESSENGER CPT-J3420 Vitamin B12 1000mcg (Cyanocobalamin) 09:25:[address] MESSENGER CPT-74360 Abx/Therapy Injection 09:25:[address] MESSENGER CPT-G0008 Administration of Influenza Virus Vaccine 13:36:47 CDT CPT-76338 Fluzone High-Dose Intramuscular Suspension 11/15 13:36:47 CDT CPT-J0897 Prolia 60 mg 08:50:41 CDT CPT-31535 Abx/Therapy Injection 08:50:41 CDT CPT-72267 Bone Density 12:06:12 CDT CPT-56227 Bone Density 08:54:40 CDT CPT-OV Office Visit 15:37:02 CDT CPT-24416 Postop F/U Visit 15:47:49 CDT CPT-46450 Postop F/U Visit 15:21:02 CDT CPT-[facility] Transitional Care Mgmt-High 07:52:27 CDT 20 20/06/01 CPT-59600 Venipuncture Draw Fee 13:51:18 CDT CPT-20751 Venipuncture Draw Fee 10:14:55 COURT MESSENGER CPT-75564 Venipuncture Draw Fee 13:39:[address] MESSENGER CPT-OV Office Visit 15:11:[address] MESSENGER CPT-47145 Venipuncture Draw Fee 09:20:[address] MESSENGER CPT-41988 Venipuncture Draw Fee 16:52:[address] MESSENGER CPT-33565 Venipuncture Draw Fee 10:37:[address] MESSENGER CPT-19800 Venipuncture Draw Fee 08:21:[address] MESSENGER CPT-43795 Venipuncture Draw Fee 08:30:[address] MESSENGER CPT-82357 Venipuncture Draw Fee 14:53:[address] MESSENGER CPT-64847 Venipuncture Draw Fee 09:40:[address] MESSENGER CPT-53968 Venipuncture Draw Fee 10:30:[address] MESSENGER CPT-66243 Venipuncture Draw Fee 10:46:[address] MESSENGER CPT-59026 Venipuncture Draw Fee 11:12:[address] MESSENGER CPT-27165 Venipuncture Draw Fee 09:53:[address] MESSENGER CPT-97423 Venipuncture Draw Fee 11:53:[address] MESSENGER CPT-76129 Venipuncture Draw Fee 10:33:[address] MESSENGER CPT-79913 Venipuncture Draw Fee 10:05:[address] MESSENGER CPT-21741 Venipuncture Draw Fee 14:32:[address] MESSENGER CPT-73937 Venipuncture Draw Fee 09:46:[address] MESSENGER CPT-28978 Venipuncture Draw Fee 11:34:[address] MESSENGER CPT-79299 Venipuncture Draw Fee 13:17:16 [address] MESSENGER CPT-85153 Venipuncture Draw Fee 12:05:39 CDT CPT-41667 Venipuncture Draw Fee 12:49:12 CDT CPT-42786 Venipuncture Draw Fee 12:37:18 CDT CPT-16039 Venipuncture Draw Fee 10:57:11 CDT CPT-80671 Venipuncture Draw Fee 13:47:40 CDT CPT-43116 Venipuncture Draw Fee 10:02:17 CDT CPT-42470 TB Tubersol 17:32:32 CDT CPT-OV Office Visit 16:21:53 CDT CPT-OV Office Visit 15:49:22 CDT CPT-OV Office Visit 17:16:31 CDT CPT-OV Office Visit 10:43:31 CDT
--- OUTSIDE RECORDS SUMMARY | 2019-02-09 12:53 | XMS REPORT | Clinical Summary ---
Author Author Renaldo, Florecita Munoz Organization [employer] [facility] Address Unknown Phone Unavailable Allergies, Adverse Reactions, [...] PhD Hyperpotassemia GERD 530.81 Resolved Kylie Yokum MEMBERSHIP SECRETARY Esophageal reflux Health maintenance exam V70.0 Resolved Adolfo Yates MD Routine general medical examination at a health care facility Anemia 285.9 Resolved Kylie Holt MEMBERSHIP SECRETARY Anemia, unspecified Personal history of malignant neoplasm of large intestine V10.05 Active Adam Yates MD Personal history of malignant neoplasm of large intestine Hypomagnesemia 275.2 Resolved Kylie Holt MEMBERSHIP SECRETARY Disorders of magnesium metabolism Weakness 780.79 Resolved [...] Sebaceous cyst, scalp 706.2 Resolved Kylie Yokum MEMBERSHIP SECRETARY Sebaceous cyst Cervical lymphadenopathy, anterior, left 785.6 Resolv ed Kylie Yokum MEMBERSHIP SECRETARY Enlargement of lymph nodes Need for prophylactic vaccination and inoculation against in fluenza V04.81 Resolved Adam Yates MD Need for prophylactic vaccination and inoculation against influenza Preventive health care V70.0 Active Kylie Yokum MEMBERSHIP SECRETARY Routine general medical examination at a health care facility Thyroid nodule, left 241.0 Active Kylie Yokum A PRN Nontoxic uninodular goiter Screening mammogram V76.12 Active Kylie Yokum AP RN Other screening mammogram Mandy 706.2 Resolved Kylie Yokum MEMBERSHIP SECRETARY Sebaceous cyst Colon cancer, ascending 153.6 Resolved Kylie Yok um MEMBERSHIP SECRETARY Malignant neoplasm of ascending colon Foot pain, left 729.5 Active Sulema Naff SERVICE AGENT Pain in limb Splinter 919.6 Active Kylie Yokum MEMBERSHIP SECRETARY Superficial foreign body (splinter) of other, multiple, and unspecified sites, without major open wound and without mention of infection Rash 782.1 Active Kylie Yokum MEMBERSHIP SECRETARY R [place] and other nonspecific skin eruption ABDOMINAL PAIN, RIGHT LOWER QUADRANT ICD-789.03 Inactive Kina Joshua MEMBERSHIP SECRETARY ADENOCARCINOMA, COLON, 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 Dick Yates MD FEVER UNSPECIFIED ICD-780.60 Inactive Hope cohn MD PhD UNSPECIFIED VENOUS INSUFFICIENCY ICD-459.81 [place] ctive Adam Yates MD ADENOCARCINOMA, 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 Inac abdelrahman Benavidez MD PhD Hyperkalemia ICD-276.7 Inactive Hope Benavidez MD PhD GERD ICD-530.81 Inactive Kylie Yokum MEMBERSHIP SECRETARY 2015 Health maintenance exam ICD-V70.0 Bam Yates MD Anemia ICD-285.9 Inactive Kylie Yokum MEMBERSHIP SECRETARY 07/24 Hypomagnesemia ICD-275.2 Inactive Kylie Yokum MEMBERSHIP SECRETARY Weakness ICD-780.79 Inactive Hope Benavidez MD P hD ABDOMINAL PAIN, GENERALIZED ICD-789.07 Inactive Hope Benavidez MD PhD Asymptomatic postmenopausal status (age-related) (natural) I CD-V49.81 Inactive Hope Benavidez MD PhD Diarrhea, functional ICD-564.5 Inactive Selena Yates MD Dysuria ICD-788.1 Inactive Hope Benavidez MD PhD 201 05/19/01 Adenocarcinoma, ascending colon ICD-153.6 Inac abdelrahman Yates MD Sebaceous cyst, scalp ICD-706.2 Inactive Tracy hi Yokum MEMBERSHIP SECRETARY Cervical lymphadenopathy, anterior, left ICD-785.6 Inactive Kylie Yokum MEMBERSHIP SECRETARY Need for prophylactic vaccination and inoculation against in fluenza ICD-V04.81 Inactive Adam Yates MD Mandy ICD-706.2 Inactive Kylie Holt MEMBERSHIP SECRETARY 07/20 Colon cancer, ascending ICD-153.6 Inactive K umang Holt MEMBERSHIP SECRETARY Aftercare following surgery of the teeth,oral cavity a nd digestive system, NEC ICD-V58.75 Inactive Adam Yates MD Colon cancer ICD-153.9 Inactive Adam luna MD Medication List Medication Instructions Start Date Stop Date Generic Name NDC Status Provider Patient Instruction VOLTAREN 1 % TRANSDERMAL GEL apply q 6-8 hour to left arm as needed for pain DICLOFENAC SODIUM 71635657499 Active Kylie Lundum AMY Active COQ10 100 MG ORAL CAPSULE 1 daily COENZYME Q10 216134 17406 Active LETY Nation Active VITAMIN D3 2000 UNIT ORAL CAPSULE Melaleuca-One daily CHOLECALCIFEROL 11726788349 Active Kylie Lundum [employer]BERSHIP SECRETARY Active PROBIOTIC DAILY ORAL CAPSULE Take one daily PROBIO TIC PRODUCT 20532304888 Active Kylie Escalonagabbium [employer]BERSHIP SECRETARY Active IRON 325 (65 Fe) MG ORAL TABLET 1 every other day FERROUS SULFATE 17836648973 No Longer Active Kylie Lundum AMY Active FLORANEX ORAL PACKET 1 pack three times daily, for bowel health LACTOBACILLUS 36149490733 No Longer Active Kylie Polagabbium [employer]BERSHIP SECRETARY Active LOMOTIL 2.5-0.025 MG ORAL TABLET 1 tab by mouth prn 23/10/23 DIPHENOXYLATE-ATROPINE 64012959501 No Longer Active Kylie Yokum MEMBERSHIP SECRETARY Active MAGNESIUM GLUCONATE 250 MG ORAL TABLET 1 tab tid 23/10/23 MAGNESIUM GLUCONATE 41189563605 No Longer Active Kylie Yokum MEMBERSHIP SECRETARY Active CYANOCOBALAMIN 1000 MCG/ML INJECTION SOLUTION 1 injection ev ruben 2 weeks CYANOCOBALAMIN 81137034032 No Longer Active Kylie boyd [employer]BERSHIP SECRETARY Active ATENOLOL 25 MG ORAL TABLET 1/2 pill by mouth daily, fo r headaches, blood pressure ATENOLOL 25242458770 Active Kylie Lundum [employer]BERSHIP SECRETARY Active PROPRANOLOL HCL 80 MG ORAL TABLET 1 tab tue. and thur. PROPRANOLOL HCL 46388364236 No Longer Active Hope Benavidez MD PhD A ctive VITAMIN D3 4000 IU 1 tab 3 times daily VITAMIN D3 4000 IU No Longer Active Hope Benavidez MD PhD Active BACTRIM DS 800-160 MG ORAL TABLET 1 pill by mouth twice claudio y, for UTI SULFAMETHOXAZOLE-TRIMETHOPRIM 64304810287 No Longer Active Hope Benavidez MD PhD Active PROLIA 60 MG/ML SUBCUTANEOUS SOLUTION 1 shot every 6 months for osteoprosis DENOSUMAB 98130938737 Active Hope Benavidez MD PhD Active CALCIUM + D + K 750-500-40 MG-UNT-MCG ORAL TABLET 1 tab by m [facility] twice daily CALCIUM-VITAMIN D-VITAMIN K 18667248794 Active Hope valdez MD PhD Active DAILY VALUE MULTIVITAMIN ORAL TABLET 1 tab by mouth twice daily 201 05/16/14 MULTIPLE VITAMIN 80748014271 Active Hope Benavidez MD PhD Acti ve FISH OIL 306 MG CAPS 1 tab by mouth three times daily OMEGA-3 FATTY ACIDS 01535755002 Active Hope Benavidez MD PhD Active LUTEIN 10 MG ORAL TABLET 1 tab daily LUTEIN 98796555 408 Active Hope Benavidez MD PhD Active TRIAMTERENE-HCTZ 37.5-25 MG ORAL TABLET 1 tab by mouth daily 10/22 TRIAMTERENE-HCTZ 00096387271 Active Kylie Holt [employer]BERSHIP SECRETARY Active CYCLOBENZAPRINE HCL 10 MG ORAL TABLET 1 tablet by mout h three times daily as needed for headaches CYCLOBENZAPRINE HCL 37923620990 No Longer Active Aadm Yates MD Active OMEPRAZOLE 20 MG ORAL CAPSULE DELAYED RELEASE 1 tablet by mo [facility] daily for GERD OMEPRAZOLE 74464125016 No Longer Active Adam Yates MD Active ZOFRAN 8 MG ORAL TABLET 1 tab by mouth every 12 hours prn 4 ONDANSETRON HCL 47440234441 No Longer Active Adam Yates MD Active PHENADOZ 25 MG RECTAL SUPPOSITORY 1 every 4 hrs. PRN 2 PROMETHAZINE HCL 32327480698 No Longer Active Adam Yates MD A ctive POTASSIUM CHLORIDE 20 MEQ ORAL PACKET by mouth twice a day prn 2 POTASSIUM CHLORIDE 78440564201 No Longer Active Adam Carpenter MD Active PROMETHAZINE HCL 25 MG ORAL TABLET 1 Q. 4 hr. PRN PROMETHAZINE HCL 22078480001 No Longer Active Adam Yates MD Active INNOPRAN XL 120 MG ORAL CAPSULE EXTENDED RELEASE 24 HO UR Take one by mouth daily PROPRANOLOL HCL SR BEADS 77739012666 No Longer Active Adam Yates MD Active FLAGYL 500 MG ORAL TABLET 1 pill by mouth three times daily, for diarrhea METRONIDAZOLE 62283980649 No Longer Active Hope landers MD PhD Active DYAZIDE 37.5-25 MG ORAL CAPSULE 1 qd TRIA MTERENE-HCTZ 17409928652 No Longer Active Hope Benavidez MD PhD Active PROZAC 20 MG ORAL CAPSULE 1 q d FLUOXETINE HCL 72080120315 No Longer Active Hope Benavidez MD PhD Active SIMVASTATIN 40 MG ORAL TABLET 1 qd SIMVAS TATIN 53625209933 No Longer Active Adam Yates MD Active MELOXICAM 15 MG ORAL TABLET 1 qd MELOXICAM 43996634375 No Longer Active Adam Yates MD Active IMODIUM A-D 2 MG ORAL TABLET 2 onset at diarrhea and prn. LOPERAMIDE HCL 41196807438 Active Hope Benavidez MD PhD Active EXCEDRIN EXTRA STRENGTH 250-250-65 MG ORAL TABLET 1-2 q6h OR N headache [id number] 39155618757 Active Hope Benavidez MD PhD Active FLAGYL 500 MG ORAL TABLET 1 qid METRONIDAZOL E 79583417519 No Longer Active Adam Yates MD Active LEVAQUIN 750 MG ORAL TABLET 1 qd LEVOFLOXAC IN 58214679062 No Longer Active Adam Yates MD Active ADULT ASPIRIN LOW STRENGTH 81 MG ORAL TABLET DISINTEGRATING 1 qd ASPIRIN 27942532842 Active Hope Benavidez MD PhD Active LEVAQUIN 750 MG ORAL TABLET 1 qd LEVAQUIN 750 MG ORAL TABLET 556920 LEVOFLOXACIN Inactive FLAGYL 500 MG ORAL TABLET 1 qid FLAGYL 500 MG ORAL TABLET 387449 METRONIDAZOLE Inactive MELOXICAM 15 MG ORAL TABLET 1 qd MELOXICAM 15 MG ORAL TABLET 575368 MELOXICAM Inactive SIMVASTATIN 40 MG ORAL TABLET 1 qd SIMVASTATIN 40 MG ORAL TABLET 887402 SIMVASTATIN Inactive PROZAC 20 MG ORAL CAPSULE 1 q d PROZAC 20 MG ORAL CAPSULE 054273 FLUOXETINE HCL Inactive DYAZIDE 37.5-25 MG ORAL CAPSULE 1 qd 5 DYAZIDE 37.5-25 MG ORAL CAPSULE 474983 TRIAMTERENE-HCTZ Inactive INNOPRAN XL 120 MG ORAL CAPSULE EXTENDED RELEASE 24 HO UR Take one by mouth daily INNOPRAN XL 120 MG ORAL CAPSULE EXTENDED RELEASE 24 HOUR PROPRANOLOL HCL SR BEADS Inactive PROMETHAZINE HCL 25 MG ORAL TABLET 1 Q. 4 hr. PRN 2013 PROMETHAZINE HCL 25 MG ORAL TABLET 332478 PROMETHAZINE HCL Inactive POTASSIUM CHLORIDE 20 MEQ ORAL PACKET by mouth twice a day prn 2 POTASSIUM CHLORIDE 20 MEQ ORAL PACKET 5693714 POTASSIUM CHLORIDE Inactive PHENADOZ 25 MG RECTAL SUPPOSITORY 1 every 4 hrs. PRN 2 PHENADOZ 25 MG RECTAL SUPPOSITORY 996775 PROMETHAZINE HCL Inactive ZOFRAN 8 MG ORAL TABLET 1 tab by mouth every 12 hours prn 4 ZOFRAN 8 MG ORAL TABLET 660402 ONDANSETRON HCL Inactive OMEPRAZOLE 20 MG ORAL CAPSULE DELAYED RELEASE 1 tablet by mo uth daily for GERD OMEPRAZOLE 20 MG ORAL CAPSULE DELAYED RELEASE 19 8051 OMEPRAZOLE Inactive CYCLOBENZAPRINE HCL 10 MG ORAL TABLET 1 tablet by mout h three times daily as needed for headaches CYCLOBENZAPRINE HCL 10 MG ORAL TABLET 298502 CYCLOBENZAPRINE HCL Inactive VITAMIN D3 4000 IU 1 tab 3 times daily VITAMIN D3 4000 IU Inactive PROPRANOLOL HCL 80 MG ORAL TABLET 1 tab tue. and thur. PROPRANOLOL HCL 80 MG ORAL TABLET 285553 PROPRANOLOL HCL Inacti ve CYANOCOBALAMIN 1000 MCG/ML INJECTION SOLUTION 1 injection ev ruben 2 weeks CYANOCOBALAMIN 1000 MCG/ML INJECTION SOLUTION 30 9594 CYANOCOBALAMIN Inactive MAGNESIUM GLUCONATE 250 MG ORAL TABLET 1 tab tid 20 23/10/23 MAGNESIUM GLUCONATE 250 MG ORAL TABLET 920854 MAGNESIUM GLUCONATE Inactive LOMOTIL 2.5-0.025 MG ORAL TABLET 1 tab by mouth prn 20 23/10/23 LOMOTIL 2.5-0.025 MG ORAL TABLET 4070953 DIPHENOXYLATE-ATROPINE Inac tive FLORANEX ORAL PACKET 1 pack three times daily, for bowel health FLORANEX ORAL PACKET LACTOBACILLUS Inactive IRON 325 (65 Fe) MG ORAL TABLET 1 every other day 2015 IRON 325 (65 Fe) MG ORAL TABLET 309340 FERROUS SULFATE Inactive FLAGYL 500 MG ORAL TABLET 1 pill by mouth three times daily, for diarrhea FLAGYL 500 MG ORAL TABLET 416397 METRONIDAZOLE I nactive BACTRIM DS 800-160 MG ORAL TABLET 1 pill by mouth twice claudio y, for UTI BACTRIM DS 800-160 MG ORAL TABLET 540798 SULFAMETHOXAZOLE-TRIMETHOPRIM Inactive Advance Directives Directive Description Start [...] 11 .0-15.0 platelet count 157 THOUSAND/UL 10*3/mm3 366-761 1338/04/20 mean platelet volume 8.9 fL 7.5-12.5 Lab Report: CEA - Serology carcinoembryonic antigen 0.9 ng/mL Encounters Code Encounter Date Provider Facility CPT-92135 Level 2 Est. Patient 14:27:16 CLIENT REPORTING ASSOCIATE Kylie Lund [facility] CPT-76250 Level 3 Est. Patient 17:54:48 CDT Kylie Lund [facility] CPT-03610 Level 3 Est. Patient 16:26:30 CDT Kina blackmon [facility] CPT-96969 Level 3 New Patient 16:22:01 CLIENT REPORTING ASSOCIATE Adam Yates MD [facility] CPT-66038 Level 4 Est. Patient 17:00:48 CDT Kylie Lund [facility] CPT-14563 Level 3 Est. Patient 13:15:54 CDT Kylie Lund [facility] CPT-27180 Level 3 Est. Patient 09:10:11 CDT Kylie Lund [facility] CPT-31060 Level 4 Est. Patient 12:08:30 CLIENT REPORTING ASSOCIATE Hope cohn MD PhD [facility] CPT-62421 Level 4 Est. Patient 19:08:42 CLIENT REPORTING ASSOCIATE Hope cohn MD PhD [facility] CPT-51446 Level 4 Est. Patient 20:04:51 CDT Hope cohn MD PhD [facility] CPT-96933 Level 3 New Patient 01:46:11 CLIENT REPORTING ASSOCIATE Hope landers MD PhD [facility] Procedures Code Procedure Name Date Entry Date Standard Desc ription CPT-64217 First Vx - Ix admin for Medicare patients 11:19:30 CDT CPT-91472 Fluzone High-Dose Intramuscular Suspension 12/07 11:19:30 CDT CPT-J0897 Prolia 60 mg 14:55:42 CDT CPT-90393 Abx/Therapy Injection 14:55:42 CDT CPT-37600 Bone Density - XRAY USE ONLY 10:27:12 CDT 2 CPT-G0439 [facility] Annual Wellness Exam 17:54:53 CDT CPT-84234 Foot, left, comp min 3V - XRAY USE ONLY 12:22:49 CDT CPT-G0009 Administration of Pneumococcal Vaccine 3 12:18:00 CDT CPT-34189 Pneumovax 23 Injection Injectable 25 MCG /0.5ML 12:18:00 CDT CPT-J0897 Prolia 60 mg 14:14:16 CLIENT REPORTING ASSOCIATE CPT-60610 Abx/Therapy Injection 14:14:15 CLIENT REPORTING ASSOCIATE CPT-18856 Lipid - LAB USE ONLY 10:01:52 CLIENT REPORTING ASSOCIATE 2 CPT-48706 Calcium - LAB USE ONLY 10:01:51 CLIENT REPORTING ASSOCIATE CPT-86958 Venipuncture Draw Fee 10:01:51 CLIENT REPORTING ASSOCIATE CPT-LR Lesion Removal 16:22:01 CLIENT REPORTING ASSOCIATE CPT-29486 TSH - LAB USE ONLY 14:26:02 CDT CPT-87194 CMP - LAB USE ONLY 14:26:01 CDT CPT-18643 CBC with Diff - LAB USE ONLY 14:26:01 CDT 2 CPT-64926 Venipuncture Draw Fee 14:26:01 CDT CPT-88899 First Vx - Ix admin for Medicare patients 13:27:08 CDT CPT-98798 Fluzone High-Dose Intramuscular Suspension 11/26 13:27:08 CDT CPT-G0438 Initial Annual Wellness Exam 14:19:57 CD T CPT-G0009 Administration of Pneumococcal Vaccine 9 11:36:25 CDT CPT-19728 Prevnar 13 Intramuscular Suspension 1 1:36:25 CDT CPT-58740 Prevnar 13 Intramuscular Suspension 1 0:40:58 CDT CPT-J0897 Prolia 60 mg 10:37:16 CDT CPT-36034 Abx/Therapy Injection 10:37:16 CDT CPT-J0897 Prolia 60 mg 16:09:34 CLIENT REPORTING ASSOCIATE CPT-J0897 Prolia 60 mg 11:10:35 CLIENT REPORTING ASSOCIATE CPT-71837 Abx/Therapy Injection 11:10:35 CLIENT REPORTING ASSOCIATE CPT-000 Give Appropriate Flu Vaccine 17:01:15 CLIENT REPORTING ASSOCIATE 2 CPT-17298 Fluzone High Dose (65+) 15:03:08 CLIENT REPORTING ASSOCIATE 02/15 CPT-18219 Immunization Single Admin 15:03:08 CLIENT REPORTING ASSOCIATE 2014 CPT-OV Office Visit 15:58:06 CDT CPT-J0897 Prolia 60 mg 08:45:38 CDT CPT-46369 Abx/Therapy Injection 08:45:38 CDT CPT-J3420 Vitamin B12 1000mcg (Cyanocobalamin) 09:26:20 CLIENT REPORTING ASSOCIATE CPT-60419 Abx/Therapy Injection 09:26:20 CLIENT REPORTING ASSOCIATE CPT-J3420 Vitamin B12 1000mcg (Cyanocobalamin) 09:44:40 CLIENT REPORTING ASSOCIATE CPT-40227 Abx/Therapy Injection 09:44:40 CLIENT REPORTING ASSOCIATE CPT-J3420 Vitamin B12 1000mcg (Cyanocobalamin) 09:15:54 CLIENT REPORTING ASSOCIATE CPT-48219 Abx/Therapy Injection 09:15:54 CLIENT REPORTING ASSOCIATE CPT-J3420 Vitamin B12 1000mcg (Cyanocobalamin) 09:46:44 CLIENT REPORTING ASSOCIATE CPT-70036 Abx/Therapy Injection 09:46:44 CLIENT REPORTING ASSOCIATE CPT-J3420 Vitamin B12 1000mcg (Cyanocobalamin) 09:47:34 CLIENT REPORTING ASSOCIATE CPT-23464 Abx/Therapy Injection 09:47:34 CLIENT REPORTING ASSOCIATE CPT-J3420 Vitamin B12 1000mcg (Cyanocobalamin) 14:35:50 CLIENT REPORTING ASSOCIATE CPT-J3420 Vitamin B12 1000mcg (Cyanocobalamin) 09:25:05 CLIENT REPORTING ASSOCIATE CPT-57213 Abx/Therapy Injection 09:25:05 CLIENT REPORTING ASSOCIATE CPT-G0008 Administration of Influenza Virus Vaccine 13:36:47 CDT CPT-90245 Fluzone High-Dose Intramuscular Suspension 11/15 13:36:47 CDT CPT-J0897 Prolia 60 mg 08:50:41 CDT CPT-33558 Abx/Therapy Injection 08:50:41 CDT CPT-91127 Bone Density 12:06:12 CDT CPT-78561 Bone Density 08:54:40 CDT CPT-OV Office Visit 15:37:02 CDT CPT-60017 Postop F/U Visit 15:47:49 CDT CPT-77999 Postop F/U Visit 15:21:02 CDT CPT-[facility] Transitional Care Mgmt-High 07:52:27 CDT 20 20/06/01 CPT-06565 Venipuncture Draw Fee 13:51:18 CDT CPT-18771 Venipuncture Draw Fee 10:14:55 CLIENT REPORTING ASSOCIATE CPT-61182 Venipuncture Draw Fee 13:39:45 CLIENT REPORTING ASSOCIATE CPT-OV Office Visit 15:11:22 CLIENT REPORTING ASSOCIATE CPT-87577 Venipuncture Draw Fee 09:20:49 CLIENT REPORTING ASSOCIATE CPT-36582 Venipuncture Draw Fee 16:52:15 CLIENT REPORTING ASSOCIATE CPT-71879 Venipuncture Draw Fee 10:37:24 CLIENT REPORTING ASSOCIATE CPT-36638 Venipuncture Draw Fee 08:21:21 CLIENT REPORTING ASSOCIATE CPT-81540 Venipuncture Draw Fee 08:30:20 CLIENT REPORTING ASSOCIATE CPT-91017 Venipuncture Draw Fee 14:53:21 CLIENT REPORTING ASSOCIATE CPT-32284 Venipuncture Draw Fee 09:40:56 CLIENT REPORTING ASSOCIATE CPT-94592 Venipuncture Draw Fee 10:30:47 CLIENT REPORTING ASSOCIATE CPT-47662 Venipuncture Draw Fee 10:46:17 CLIENT REPORTING ASSOCIATE CPT-55489 Venipuncture Draw Fee 11:12:45 CLIENT REPORTING ASSOCIATE CPT-79982 Venipuncture Draw Fee 09:53:33 CLIENT REPORTING ASSOCIATE CPT-08817 Venipuncture Draw Fee 11:53:51 CLIENT REPORTING ASSOCIATE CPT-62120 Venipuncture Draw Fee 10:33:50 CLIENT REPORTING ASSOCIATE CPT-09303 Venipuncture Draw Fee 10:05:01 CLIENT REPORTING ASSOCIATE CPT-44691 Venipuncture Draw Fee 14:32:52 CLIENT REPORTING ASSOCIATE CPT-30803 Venipuncture Draw Fee 09:46:13 CLIENT REPORTING ASSOCIATE CPT-76403 Venipuncture Draw Fee 11:34:27 CLIENT REPORTING ASSOCIATE CPT-80224 Venipuncture Draw Fee 13:17:16 CLIENT REPORTING ASSOCIATE CPT-22762 Venipuncture Draw Fee 12:05:39 CDT CPT-08202 Venipuncture Draw Fee 12:49:12 CDT CPT-34324 Venipuncture Draw Fee 12:37:18 CDT CPT-38040 Venipuncture Draw Fee 10:57:11 CDT CPT-62291 Venipuncture Draw Fee 13:47:40 CDT CPT-16863 Venipuncture Draw Fee 10:02:17 CDT CPT-20451 TB Tubersol 17:32:32 CDT CPT-OV Office Visit 16:21:53 CDT CPT-OV Office Visit 15:49:22 CDT CPT-OV Office Visit 17:16:31 CDT CPT-OV Office Visit 10:43:31 CDT
--- OUTSIDE RECORDS SUMMARY | 2019-02-09 12:53 | XMS REPORT | Clinical Summary ---
Author Author Renaldo, Florecita Munoz Organization [email or web address] Address Unknown Phone Unavailable Allergies, Adverse Reactions, [...] PhD Hyperpotassemia GERD 530.81 Resolved Kylie Yokum TRACK MACHINE OPERATOR REPAIRER Esophageal reflux Health maintenance exam V70.0 Resolved Adolfo Yates MD Routine general medical examination at a health care facility Anemia 285.9 Resolved Kylie Holt TRACK MACHINE OPERATOR REPAIRER Anemia, unspecified Personal history of malignant neoplasm of large intestine V10.05 Active Adam Yates MD Personal history of malignant neoplasm of large intestine Hypomagnesemia 275.2 Resolved Kylie Holt TRACK MACHINE OPERATOR REPAIRER Disorders of magnesium metabolism Weakness 780.79 [...] Sebaceous cyst, scalp 706.2 Resolved Kylie Yokum TRACK MACHINE OPERATOR REPAIRER Sebaceous cyst Cervical lymphadenopathy, anterior, left 785.6 Resolv ed Kylie Yokum TRACK MACHINE OPERATOR REPAIRER Enlargement of lymph nodes Need for prophylactic vaccination and inoculation against in fluenza V04.81 Resolved Adam Yates MD Need for prophylactic vaccination and inoculation against influenza Preventive health care V70.0 Active Kylie Yokum TRACK MACHINE OPERATOR REPAIRER Routine general medical examination at a health care facility Thyroid nodule, left 241.0 Active Kylie Yokum A PRN Nontoxic uninodular goiter Screening mammogram V76.12 Active Kylie Yokum AP RN Other screening mammogram Mandy 706.2 Resolved Kylie Yokum TRACK MACHINE OPERATOR REPAIRER Sebaceous cyst Colon cancer, ascending 153.6 Resolved Kylie Yok um TRACK MACHINE OPERATOR REPAIRER Malignant neoplasm of ascending colon Foot pain, left 729.5 Active Sulema Sterlingf BURLAP ROLL COVERER Pain in limb Splinter 919.6 Active Kylie Yokum TRACK MACHINE OPERATOR REPAIRER Superficial foreign body (splinter) of other, multiple, and unspecified sites, without major open wound and without mention of infection Rash 782.1 Active Kylie Yokum TRACK MACHINE OPERATOR REPAIRER R aurora and other nonspecific skin eruption Cyst 706.2 Active Kylie Yokum TRACK MACHINE OPERATOR REPAIRER S ebaceous cyst ABDOMINAL PAIN, RIGHT LOWER QUADRANT ICD-789.03 Inactive Kina Joshua TRACK MACHINE OPERATOR REPAIRER ADENOCARCINOMA, COLON, 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 Dick Yates MD ABDOMINAL PAIN, GENERALIZED ICD-789.07 Inactive Hope Benavidez MD PhD FEVER UNSPECIFIED ICD-780.60 Inactive Hope cohn MD PhD UNSPECIFIED VENOUS INSUFFICIENCY ICD-459.81 Hamel ctive Adam Yates MD ADENOCARCINOMA, 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 Inac abdelrahman Benavidez MD PhD Hyperkalemia ICD-276.7 Inactive Hope Benavidez MD PhD GERD ICD-530.81 Inactive Kylie Holt TRACK MACHINE OPERATOR REPAIRER 2015 Health maintenance exam ICD-V70.0 Bam Yates MD Anemia ICD-285.9 Inactive Kylie Holt TRACK MACHINE OPERATOR REPAIRER 07/24 Hypomagnesemia ICD-275.2 Inactive Kylie Holt TRACK MACHINE OPERATOR REPAIRER Weakness ICD-780.79 Inactive Hope Benavidez MD [...] Sebaceous cyst, scalp ICD-706.2 Inactive Tracy Holt TRACK MACHINE OPERATOR REPAIRER Cervical lymphadenopathy, anterior, left ICD-785.6 Inactive Kylie Holt TRACK MACHINE OPERATOR REPAIRER Need for prophylactic vaccination and inoculation against in fluenza ICD-V04.81 Inactive Adam Yates MD Mandy ICD-706.2 Inactive Kylie Holt TRACK MACHINE OPERATOR REPAIRER 07/20 Colon cancer, ascending ICD-153.6 Inactive Bravo Escalonapari REYES Colon cancer ICD-153.9 Inactive Adam luna MD Medication List Medication Instructions Start Date Stop Date Generic Name NDC Status Provider Patient Instruction VOLTAREN 1 % TRANSDERMAL GEL apply q 6-8 hour to left arm as needed for pain DICLOFENAC SODIUM 73365468369 Active Kylie Holt APRN Active COQ10 100 MG ORAL CAPSULE 1 daily COENZYME Q10 115168 10803 Active LETY Nation Active VITAMIN D3 2000 UNIT ORAL CAPSULE Melaleuca-One daily CHOLECALCIFEROL 56855629738 Active Kylie Holt APRN Active PROBIOTIC DAILY ORAL CAPSULE Take one daily PROBIO TIC PRODUCT 79322471932 Active Kylie Holt AMY Active IRON 325 (65 Fe) MG ORAL TABLET 1 every other day FERROUS SULFATE 41348147711 No Longer Active Kylie Holt AMY Active FLORANEX ORAL PACKET 1 pack three times daily, for bowel health LACTOBACILLUS 52702194293 No Longer Active Kylie Holt APRN Active LOMOTIL 2.5-0.025 MG ORAL TABLET 1 tab by mouth prn 23/10/23 DIPHENOXYLATE-ATROPINE 60069734776 No Longer Active Kylie Holt APRN Active MAGNESIUM GLUCONATE 250 MG ORAL TABLET 1 tab tid 23/10/23 MAGNESIUM GLUCONATE 15706145079 No Longer Active Kylie Lundum TRACK MACHINE OPERATOR REPAIRER Active CYANOCOBALAMIN 1000 MCG/ML INJECTION SOLUTION 1 injection ev ruben 2 weeks CYANOCOBALAMIN 73240337697 No Longer Active Kylie Lund um TRACK MACHINE OPERATOR REPAIRER Active ATENOLOL 25 MG ORAL TABLET 1/2 pill by mouth daily, fo r headaches, blood pressure ATENOLOL 56639688843 Active Kylie Lundum TRACK MACHINE OPERATOR REPAIRER Active PROPRANOLOL HCL 80 MG ORAL TABLET 1 tab tue. and thur. PROPRANOLOL HCL 03578292249 No Longer Active Hope Benavidez MD PhD A ctive VITAMIN D3 4000 IU 1 tab 3 times daily VITAMIN D3 4000 IU No Longer Active Hope Benavidez MD PhD Active BACTRIM DS 800-160 MG ORAL TABLET 1 pill by mouth twice claudio y, for UTI SULFAMETHOXAZOLE-TRIMETHOPRIM 87524918715 No Longer Active Hope Benavidez MD PhD Active PROLIA 60 MG/ML SUBCUTANEOUS SOLUTION 1 shot every 6 months for osteoprosis DENOSUMAB 21109724343 Active Hope Benavidez MD PhD Active CALCIUM + D + K 750-500-40 MG-UNT-MCG ORAL TABLET 1 tab by m out twice daily CALCIUM-VITAMIN D-VITAMIN K 72033018659 Active Hope valdez MD PhD Active DAILY VALUE MULTIVITAMIN ORAL TABLET 1 tab by mouth twice daily 201 05/16/14 MULTIPLE VITAMIN 18587372832 Active Hope Benavidez MD PhD Acti ve FISH OIL 306 MG CAPS 1 tab by mouth three times daily OMEGA-3 FATTY ACIDS 22867558280 Active Hope Benavidez MD PhD Active LUTEIN 10 MG ORAL TABLET 1 tab daily LUTEIN 34886764 408 Active Hope Benavidez MD PhD Active TRIAMTERENE-HCTZ 37.5-25 MG ORAL TABLET 1 tab by mouth daily 10/22 TRIAMTERENE-HCTZ 74609569098 Active LETY Rossi Activ e CYCLOBENZAPRINE HCL 10 MG ORAL TABLET 1 tablet by mout h three times daily as needed for headaches CYCLOBENZAPRINE HCL 37379961565 No Longer Active Adam Yates MD Active OMEPRAZOLE 20 MG ORAL CAPSULE DELAYED RELEASE 1 tablet by [facility] daily for GERD OMEPRAZOLE 25032773554 No Longer Active Adam Yates MD Active ZOFRAN 8 MG ORAL TABLET 1 tab by mouth every 12 hours prn 4 ONDANSETRON HCL 57059835172 No Longer Active Adam Yates MD Active PHENADOZ 25 MG RECTAL SUPPOSITORY 1 every 4 hrs. PRN 2 PROMETHAZINE HCL 85734692928 No Longer Active Adam Yates MD A ctive POTASSIUM CHLORIDE 20 MEQ ORAL PACKET by mouth twice a day prn 2 POTASSIUM CHLORIDE 32404872947 No Longer Active Adam Carpenter MD Active PROMETHAZINE HCL 25 MG ORAL TABLET 1 Q. 4 hr. PRN PROMETHAZINE HCL 34621053213 No Longer Active Adam Yates MD Active INNOPRAN XL 120 MG ORAL CAPSULE EXTENDED RELEASE 24 HO UR Take one by mouth daily PROPRANOLOL HCL SR BEADS 16441751904 No Longer Active Adam Yates MD Active FLAGYL 500 MG ORAL TABLET 1 pill by mouth three times daily, for diarrhea METRONIDAZOLE 75714346195 No Longer Active Hope landers MD PhD Active DYAZIDE 37.5-25 MG ORAL CAPSULE 1 qd TRIA MTERENE-HCTZ 02341178117 No Longer Active Hope Benavidez MD PhD Active PROZAC 20 MG ORAL CAPSULE 1 q d FLUOXETINE HCL 70409647825 No Longer Active Hope Benavidez MD PhD Active SIMVASTATIN 40 MG ORAL TABLET 1 qd SIMVAS TATIN 53424209344 No Longer Active Adam Yates MD Active MELOXICAM 15 MG ORAL TABLET 1 qd MELOXICAM 72032792091 No Longer Active Adam Yates MD Active IMODIUM A-D 2 MG ORAL TABLET 2 onset at diarrhea and prn. LOPERAMIDE HCL 56206303575 Active Hope Benavidez MD PhD Active EXCEDRIN EXTRA STRENGTH 250-250-65 MG ORAL TABLET 1-2 q6h SC N headache [id number] 31861379701 Active Hope Benavidez MD PhD Active FLAGYL 500 MG ORAL TABLET 1 qid METRONIDAZOL E 96097339448 No Longer Active Adam Yates MD Active LEVAQUIN 750 MG ORAL TABLET 1 qd LEVOFLOXAC IN 86450058945 No Longer Active Adam Yates MD Active ADULT ASPIRIN LOW STRENGTH 81 MG ORAL TABLET DISINTEGRATING 1 qd ASPIRIN 12310490630 Active Hope Benavidez MD PhD Active LEVAQUIN 750 MG ORAL TABLET 1 qd LEVAQUIN 750 MG ORAL TABLET 656925 LEVOFLOXACIN Inactive FLAGYL 500 MG ORAL TABLET 1 qid FLAGYL 500 MG ORAL TABLET 753753 METRONIDAZOLE Inactive MELOXICAM 15 MG ORAL TABLET 1 qd MELOXICAM 15 MG ORAL TABLET 960646 MELOXICAM Inactive SIMVASTATIN 40 MG ORAL TABLET 1 qd SIMVASTATIN 40 MG ORAL TABLET 814524 SIMVASTATIN Inactive PROZAC 20 MG ORAL CAPSULE 1 q d PROZAC 20 MG ORAL CAPSULE 472475 FLUOXETINE HCL Inactive DYAZIDE 37.5-25 MG ORAL CAPSULE 1 qd 5 DYAZIDE 37.5-25 MG ORAL CAPSULE 696023 TRIAMTERENE-HCTZ Inactive INNOPRAN XL 120 MG ORAL CAPSULE EXTENDED RELEASE 24 HO UR Take one by mouth daily INNOPRAN XL 120 MG ORAL CAPSULE EXTENDED RELEASE 24 HOUR PROPRANOLOL HCL SR BEADS Inactive PROMETHAZINE HCL 25 MG ORAL TABLET 1 Q. 4 hr. PRN 2013 PROMETHAZINE HCL 25 MG ORAL TABLET 774355 PROMETHAZINE HCL Inactive POTASSIUM CHLORIDE 20 MEQ ORAL PACKET by mouth twice a day prn 2 POTASSIUM CHLORIDE 20 MEQ ORAL PACKET 0159250 POTASSIUM CHLORIDE Inactive PHENADOZ 25 MG RECTAL SUPPOSITORY 1 every 4 hrs. PRN 2 PHENADOZ 25 MG RECTAL SUPPOSITORY 950234 PROMETHAZINE HCL Inactive ZOFRAN 8 MG ORAL TABLET 1 tab by mouth every 12 hours prn 4 ZOFRAN 8 MG ORAL TABLET 680329 ONDANSETRON HCL Inactive OMEPRAZOLE 20 MG ORAL CAPSULE DELAYED RELEASE 1 tablet by mo uth daily for GERD OMEPRAZOLE 20 MG ORAL CAPSULE DELAYED RELEASE 19 8051 OMEPRAZOLE Inactive CYCLOBENZAPRINE HCL 10 MG ORAL TABLET 1 tablet by mout h three times daily as needed for headaches CYCLOBENZAPRINE HCL 10 MG ORAL TABLET 075411 CYCLOBENZAPRINE HCL Inactive VITAMIN D3 4000 IU 1 tab 3 times daily VITAMIN D3 4000 IU Inactive PROPRANOLOL HCL 80 MG ORAL TABLET 1 tab tue. and thur. PROPRANOLOL HCL 80 MG ORAL TABLET 707166 PROPRANOLOL HCL Inacti ve CYANOCOBALAMIN 1000 MCG/ML INJECTION SOLUTION 1 injection ev ruben 2 weeks CYANOCOBALAMIN 1000 MCG/ML INJECTION SOLUTION 30 9594 CYANOCOBALAMIN Inactive MAGNESIUM GLUCONATE 250 MG ORAL TABLET 1 tab tid 23/10/23 MAGNESIUM GLUCONATE 250 MG ORAL TABLET 089902 MAGNESIUM GLUCONATE Inactive LOMOTIL 2.5-0.025 MG ORAL TABLET 1 tab by mouth prn 20 23/10/23 LOMOTIL 2.5-0.025 MG ORAL TABLET 1068805 DIPHENOXYLATE-ATROPINE Inac tive FLORANEX ORAL PACKET 1 pack three times daily, for bowel health FLORANEX ORAL PACKET LACTOBACILLUS Inactive IRON 325 (65 Fe) MG ORAL TABLET 1 every other day 2015 IRON 325 (65 Fe) MG ORAL TABLET 350251 FERROUS SULFATE Inactive FLAGYL 500 MG ORAL TABLET 1 pill by mouth three times daily, for diarrhea FLAGYL 500 MG ORAL TABLET 672621 METRONIDAZOLE I nactive BACTRIM DS 800-160 MG ORAL TABLET 1 pill by mouth twice claudio y, for UTI BACTRIM DS 800-160 MG ORAL TABLET 061610 SULFAMETHOXAZOLE-TRIMETHOPRIM Inactive Advance Directives Directive Description Start [...] ... - Chemistry sodium, serum 138 mmol/L 638-826 4272/12/15 potassium, serum 4.0 mmol/L 3.5-5.2 chloride, serum [...] 11 .0-15.0 platelet count 157 THOUSAND/UL 10*3/mm3 754-550 7592/04/20 mean platelet volume 8.9 fL 7.5-12.5 Lab Report: CE[facility] - Serology carcinoembryonic antigen 0.9 ng/mL Encounters Code Encounter Date Provider Facility CPT-80284 Level 3 Est. Patient 08:15:24 REPAIRER RESISTANCE WELDING MACHINES Kylie Lund [facility] [place] 2] CPT-07682 Level 2 Est. Patient 14:27:16 REPAIRER RESISTANCE WELDING MACHINES Kylie Lund [facility] [place]note 2] CPT-19228 Level 3 Est. Patient 17:54:48 CDT [facility] C[facility]36 Level 3 Est. Patient 16:26:30 CDT Kina blackmon [facility] CPT-22937 Level 3 New Patient 16:22:01 REPAIRER RESISTANCE WELDING MACHINES Adam Yates MD [facility] CPT-70971 Level 4 Est. Patient 17:00:48 CDT Kylie Lund [facility] [place][note 2] CPT-40847 Level 3 Est. Patient 13:15:54 CDT Kylie Lund [facility] CPT-18583 Level 3 Est. Patient 09:10:11 CDT Kylie Lund [facility] CPT-73634 Level 4 Est. Patient 12:08:30 REPAIRER RESISTANCE WELDING MACHINES Hope cohn MD [facility] CPT-04479 Level 4 Est. Patient 19:08:42 REPAIRER RESISTANCE WELDING MACHINES Hope cohn MD PhD [facility] CPT-06891 Level 4 Est. Patient 20:04:51 CDT Hope cohn MD PhD [facility] CPT-51329 Level 3 New Patient 01:46:11 REPAIRER RESISTANCE WELDING MACHINES Hope landers MD PhD [facility] Procedures Code Procedure Name Date Entry Date Standard Desc ription CPT-J0897 Prolia 60 mg 15:46:54 REPAIRER RESISTANCE WELDING MACHINES CPT-16832 Abx/Therapy Injection 15:46:54 REPAIRER RESISTANCE WELDING MACHINES CPT-77295 Microalbumin - LAB USE ONLY 09:41:32 REPAIRER RESISTANCE WELDING MACHINES 20 23/01/15 CPT-12574 Free T4 - LAB USE ONLY 09:41:32 REPAIRER RESISTANCE WELDING MACHINES CPT-64059 TSH - LAB USE ONLY 09:41:32 REPAIRER RESISTANCE WELDING MACHINES CPT-11970 BMP - LAB USE ONLY 09:41:32 REPAIRER RESISTANCE WELDING MACHINES CPT-58896 Venipuncture Draw Fee 09:41:32 REPAIRER RESISTANCE WELDING MACHINES CPT-35414 First Vx - Ix admin for Medicare patients 11:19:30 CDT CPT-37863 Fluzone High-Dose Intramuscular Suspension 12/07 11:19:30 CDT CPT-J0897 Prolia 60 mg 14:55:42 CDT CPT-89957 Abx/Therapy Injection 14:55:42 CDT CPT-65517 Bone Density - XRAY USE ONLY 10:27:12 CDT 2 CPT-G0439 [facility] Annual Wellness Exam 17:54:53 CDT CPT-87399 Foot, left, comp min 3V - XRAY USE ONLY 12:22:49 CDT CPT-G0009 Administration of Pneumococcal Vaccine 3 12:18:00 CDT CPT-05113 Pneumovax 23 Injection Injectable 25 MCG /0.5ML 12:18:00 CDT CPT-J0897 Prolia 60 mg 14:14:16 REPAIRER RESISTANCE WELDING MACHINES CPT-77339 Abx/Therapy Injection 14:14:15 REPAIRER RESISTANCE WELDING MACHINES CPT-05558 Lipid - LAB USE ONLY 10:01:52 REPAIRER RESISTANCE WELDING MACHINES 2 CPT-44759 Calcium - LAB USE ONLY 10:01:51 REPAIRER RESISTANCE WELDING MACHINES CPT-66052 Venipuncture Draw Fee 10:01:51 REPAIRER RESISTANCE WELDING MACHINES CPT-LR Lesion Removal 16:22:01 REPAIRER RESISTANCE WELDING MACHINES CPT-79528 TSH - LAB USE ONLY 14:26:02 CDT CPT-48582 CMP - LAB USE ONLY 14:26:01 CDT CPT-14854 CBC with Diff - LAB USE ONLY 14:26:01 CDT 2 CPT-70214 Venipuncture Draw Fee 14:26:01 CDT CPT-79699 First Vx - Ix admin for Medicare patients 13:27:08 CDT CPT-64327 Fluzone High-Dose Intramuscular Suspension 11/26 13:27:08 CDT CPT-G0438 Initial Annual Wellness Exam 14:19:57 CD T CPT-G0009 Administration of Pneumococcal Vaccine 9 11:36:25 CDT CPT-17981 Prevnar 13 Intramuscular Suspension 1 1:36:25 CDT CPT-72342 Prevnar 13 Intramuscular Suspension 1 0:40:58 CDT CPT-J0897 Prolia 60 mg 10:37:16 CDT CPT-93016 Abx/Therapy Injection 10:37:16 CDT CPT-J0897 Prolia 60 mg 16:09:34 REPAIRER RESISTANCE WELDING MACHINES CPT-J0897 Prolia 60 mg 11:10:35 REPAIRER RESISTANCE WELDING MACHINES CPT-01848 Abx/Therapy Injection 11:10:35 REPAIRER RESISTANCE WELDING MACHINES CPT-000 Give Appropriate Flu Vaccine 17:01:15 REPAIRER RESISTANCE WELDING MACHINES 2 CPT-66426 Fluzone High Dose (65+) 15:03:08 REPAIRER RESISTANCE WELDING MACHINES 02/15 CPT-89908 Immunization Single Admin 15:03:08 REPAIRER RESISTANCE WELDING MACHINES 2014 CPT-OV Office Visit 15:58:06 CDT CPT-J0897 Prolia 60 mg 08:45:38 CDT CPT-87452 Abx/Therapy Injection 08:45:38 CDT CPT-J3420 Vitamin B12 1000mcg (Cyanocobalamin) 09:26:20 REPAIRER RESISTANCE WELDING MACHINES CPT-17201 Abx/Therapy Injection 09:26:20 REPAIRER RESISTANCE WELDING MACHINES CPT-J3420 Vitamin B12 1000mcg (Cyanocobalamin) 09:44:40 REPAIRER RESISTANCE WELDING MACHINES CPT-19158 Abx/Therapy Injection 09:44:40 REPAIRER RESISTANCE WELDING MACHINES CPT-J3420 Vitamin B12 1000mcg (Cyanocobalamin) 09:15:54 REPAIRER RESISTANCE WELDING MACHINES CPT-25974 Abx/Therapy Injection 09:15:54 REPAIRER RESISTANCE WELDING MACHINES CPT-J3420 Vitamin B12 1000mcg (Cyanocobalamin) 09:46:44 REPAIRER RESISTANCE WELDING MACHINES CPT-44749 Abx/Therapy Injection 09:46:44 REPAIRER RESISTANCE WELDING MACHINES CPT-J3420 Vitamin B12 1000mcg (Cyanocobalamin) 09:47:34 REPAIRER RESISTANCE WELDING MACHINES CPT-05000 Abx/Therapy Injection 09:47:34 REPAIRER RESISTANCE WELDING MACHINES CPT-J3420 Vitamin B12 1000mcg (Cyanocobalamin) 14:35:50 REPAIRER RESISTANCE WELDING MACHINES CPT-J3420 Vitamin B12 1000mcg (Cyanocobalamin) 09:25:05 REPAIRER RESISTANCE WELDING MACHINES CPT-89935 Abx/Therapy Injection 09:25:05 REPAIRER RESISTANCE WELDING MACHINES CPT-G0008 Administration of Influenza Virus Vaccine 13:36:47 CDT CPT-44740 Fluzone High-Dose Intramuscular Suspension 11/15 13:36:47 CDT CPT-J0897 Prolia 60 mg 08:50:41 CDT CPT-96953 Abx/Therapy Injection 08:50:41 CDT CPT-56831 Bone Density 12:06:12 CDT CPT-02175 Bone Density 08:54:40 CDT CPT-OV Office Visit 15:37:02 CDT CPT-05952 Postop F/U Visit 15:47:49 CDT CPT-70569 Postop F/U Visit 15:21:02 CDT CPT-[facility] Transitional Care Mgmt-High 07:52:27 CDT 20 20/06/01 CPT-08513 Venipuncture Draw Fee 13:51:18 CDT CPT-78750 Venipuncture Draw Fee 10:14:55 REPAIRER RESISTANCE WELDING MACHINES CPT-42374 Venipuncture Draw Fee 13:39:45 REPAIRER RESISTANCE WELDING MACHINES CPT-OV Office Visit 15:11:22 REPAIRER RESISTANCE WELDING MACHINES CPT-62082 Venipuncture Draw Fee 09:20:49 REPAIRER RESISTANCE WELDING MACHINES CPT-15465 Venipuncture Draw Fee 16:52:15 REPAIRER RESISTANCE WELDING MACHINES CPT-74093 Venipuncture Draw Fee 10:37:24 REPAIRER RESISTANCE WELDING MACHINES CPT-39623 Venipuncture Draw Fee 08:21:21 REPAIRER RESISTANCE WELDING MACHINES CPT-35864 Venipuncture Draw Fee 08:30:20 REPAIRER RESISTANCE WELDING MACHINES CPT-71542 Venipuncture Draw Fee 14:53:21 REPAIRER RESISTANCE WELDING MACHINES CPT-68561 Venipuncture Draw Fee 09:40:56 REPAIRER RESISTANCE WELDING MACHINES CPT-95860 Venipuncture Draw Fee 10:30:47 REPAIRER RESISTANCE WELDING MACHINES CPT-00219 Venipuncture Draw Fee 10:46:17 REPAIRER RESISTANCE WELDING MACHINES CPT-46970 Venipuncture Draw Fee 11:12:45 REPAIRER RESISTANCE WELDING MACHINES CPT-88022 Venipuncture Draw Fee 09:53:33 REPAIRER RESISTANCE WELDING MACHINES CPT-24457 Venipuncture Draw Fee 11:53:51 REPAIRER RESISTANCE WELDING MACHINES CPT-30230 Venipuncture Draw Fee 10:33:50 REPAIRER RESISTANCE WELDING MACHINES CPT-89517 Venipuncture Draw Fee 10:05:01 REPAIRER RESISTANCE WELDING MACHINES CPT-99960 Venipuncture Draw Fee 14:32:52 REPAIRER RESISTANCE WELDING MACHINES CPT-14044 Venipuncture Draw Fee 09:46:13 REPAIRER RESISTANCE WELDING MACHINES CPT-71033 Venipuncture Draw Fee 11:34:27 REPAIRER RESISTANCE WELDING MACHINES CPT-89157 Venipuncture Draw Fee 13:17:16 REPAIRER RESISTANCE WELDING MACHINES CPT-49029 Venipuncture Draw Fee 12:05:39 CDT CPT-55973 Venipuncture Draw Fee 12:49:12 CDT CPT-12033 Venipuncture Draw Fee 12:37:18 CDT CPT-76892 Venipuncture Draw Fee 10:57:11 CDT CPT-60297 Venipuncture Draw Fee 13:47:40 CDT CPT-44193 Venipuncture Draw Fee 10:02:17 CDT CPT-92934 TB Tubersol 17:32:32 CDT CPT-OV Office Visit 16:21:53 CDT CPT-OV Office Visit 15:49:22 CDT CPT-OV Office Visit 17:16:31 CDT CPT-OV Office Visit 10:43:31 CDT
--- OUTSIDE RECORDS SUMMARY | 2019-02-09 12:54 | XMS REPORT | Clinical Summary ---
Author Author Renaldo, Florecita Munoz Organization [facility] Address Unknown Phone Unavailable Allergies, Adverse Reactions, [...] PhD Hyperpotassemia GERD 530.81 Resolved Kylie Yokum PIPE LAYER HELPER Esophageal reflux Health maintenance exam V70.0 Resolved Adolfo Yates MD Routine general medical examination at a health care facility Anemia 285.9 Resolved Kylie Yanet PIPE LAYER HELPER Anemia, unspecified Personal history of malignant neoplasm of large intestine V10.05 Active Adam Yates MD Personal history of malignant neoplasm of large intestine Hypomagnesemia 275.2 Resolved Kylie Yanet PIPE LAYER HELPER Disorders of magnesium metabolism Weakness 780.79 Resolved [...] MD Functional diarrhea Osteoporosis 733.00 Active Hope eBnavidez MD PhD Osteoporosis, unspecified Dysuria 788.1 Resolved [...] Sebaceous cyst, scalp 706.2 Resolved Kylie Yokum PIPE LAYER HELPER Sebaceous cyst Cervical lymphadenopathy, anterior, left 785.6 Resolv ed Kylie Yokum PIPE LAYER HELPER Enlargement of lymph nodes Need for prophylactic vaccination and inoculation against in fluenza V04.81 Resolved Adam Yates MD Need for prophylactic vaccination and inoculation against influenza Preventive health care V70.0 Active Kylie Yokum PIPE LAYER HELPER Routine general medical examination at a health care facility Thyroid nodule, left 241.0 Active Kylie Yokum A PRN Nontoxic uninodular goiter Screening mammogram V76.12 Active Kylie Yokum AP RN Other screening mammogram Mandy 706.2 Resolved Kylie Yokum PIPE LAYER HELPER Sebaceous cyst Colon cancer, ascending 153.6 Resolved Kylie Yok um PIPE LAYER HELPER Malignant neoplasm of ascending colon Foot pain, left 729.5 Active Sulema Naff LOAD DISPATCHER LOCAL Pain in limb Splinter 919.6 Active Kylie Yokum PIPE LAYER HELPER Superficial foreign body (splinter) of other, multiple, and unspecified sites, without major open wound and without mention of infection Rash 782.1 Active Kylie Yokum PIPE LAYER HELPER R aurora and other nonspecific skin eruption Cyst 706.2 Active Kylie Yokum PIPE LAYER HELPER S ebaceous cyst ABDOMINAL PAIN, RIGHT LOWER QUADRANT ICD-789.03 Inactive Kina Joshua PIPE LAYER HELPER ADENOCARCINOMA, COLON, 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 Dick Yates MD ABDOMINAL PAIN, GENERALIZED ICD-789.07 Inactive Hope Benavidez MD PhD FEVER UNSPECIFIED ICD-780.60 Inactive Hope cohn MD PhD UNSPECIFIED VENOUS INSUFFICIENCY ICD-459.81 [place] ctive Adam Yates MD ADENOCARCINOMA, 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 Inac tive Hope Benavidez MD PhD Hyperkalemia ICD-276.7 Inactive Hope Benavidez MD PhD GERD ICD-530.81 Inactive Kylieshubham Holt PIPE LAYER HELPER 2015 Health maintenance exam ICD-V70.0 Bam Yates MD Anemia ICD-285.9 Inactive Kylieshubham Holt PIPE LAYER HELPER 07/24 Hypomagnesemia ICD-275.2 Inactive Kylie Holt PIPE LAYER HELPER Weakness ICD-780.79 Inactive Hope Benavidez MD P [...] Sebaceous cyst, scalp ICD-706.2 Inactive Tracy Holt PIPE LAYER HELPER Cervical lymphadenopathy, anterior, left ICD-785.6 Inactive Kylie Lundum PIPE LAYER HELPER Need for prophylactic vaccination and inoculation against in fluenza ICD-V04.81 Inactive Adam Yates MD Mandy ICD-706.2 Inactive Kylie Holt PIPE LAYER HELPER 07/20 Colon cancer, ascending ICD-153.6 Inactive Gabbi Holt PIPE LAYER HELPER Medication List Medication Instructions Start Date Stop Date Generic Name NDC Status Provider Patient Instruction VOLTAREN 1 % TRANSDERMAL GEL apply q 6-8 hour to left arm as needed for pain DICLOFENAC SODIUM 36617744326 Active Kylie Holt AMY Active COQ10 100 MG ORAL CAPSULE 1 daily COENZYME Q10 942134 60962 Active LETY Nation Active VITAMIN D3 2000 UNIT ORAL CAPSULE Melaleuca-One daily CHOLECALCIFEROL 52238719130 Active Kylie Holt APRN Active PROBIOTIC DAILY ORAL CAPSULE Take one daily PROBIO TIC PRODUCT 95004872787 Active Kylie Holt AMY Active IRON 325 (65 Fe) MG ORAL TABLET 1 every other day FERROUS SULFATE 52269129739 No Longer Active Kylie Holt AMY Active FLORANEX ORAL PACKET 1 pack three times daily, for bowel health LACTOBACILLUS 12068666053 No Longer Active Kylie Holt APRN Active LOMOTIL 2.5-0.025 MG ORAL TABLET 1 tab by mouth prn 20 23/10/23 DIPHENOXYLATE-ATROPINE 52614560117 No Longer Active Kylie Holt PIPE LAYER HELPER Active MAGNESIUM GLUCONATE 250 MG ORAL TABLET 1 tab tid 23/10/23 MAGNESIUM GLUCONATE 17124090869 No Longer Active Kylie Yokum PIPE LAYER HELPER Active CYANOCOBALAMIN 1000 MCG/ML INJECTION SOLUTION 1 injection ev ruben 2 weeks CYANOCOBALAMIN 40178282002 No Longer Active Kylie Lund um PIPE LAYER HELPER Active ATENOLOL 25 MG ORAL TABLET 1/2 pill by mouth daily, fo r headaches, blood pressure ATENOLOL 68708795142 Active Kylie Yokum PIPE LAYER HELPER Active PROPRANOLOL HCL 80 MG ORAL TABLET 1 tab tue. and thur. PROPRANOLOL HCL 01916621779 No Longer Active Hope Benavidez MD PhD A ctive VITAMIN D3 4000 IU 1 tab 3 times daily VITAMIN D3 4000 IU No Longer Active Hope Benavidez MD PhD Active BACTRIM DS 800-160 MG ORAL TABLET 1 pill by mouth twice claudio y, for UTI SULFAMETHOXAZOLE-TRIMETHOPRIM 77626560862 No Longer Active Hope Benavidez MD PhD Active PROLIA 60 MG/ML SUBCUTANEOUS SOLUTION 1 shot every 6 months for osteoprosis DENOSUMAB 93535140419 Active Hope Benavidez MD PhD Active CALCIUM + D + K 750-500-40 MG-UNT-MCG ORAL TABLET 1 tab by m out twice daily CALCIUM-VITAMIN D-VITAMIN K 19400202851 Active Hope valdez MD PhD Active DAILY VALUE MULTIVITAMIN ORAL TABLET 1 tab by mouth twice daily 201 05/16/14 MULTIPLE VITAMIN 44789520027 Active Hope Benavidez MD PhD Acti ve FISH OIL 306 MG CAPS 1 tab by mouth three times daily OMEGA-3 FATTY ACIDS 40161067817 Active Hope Benavidez MD PhD Active LUTEIN 10 MG ORAL TABLET 1 tab daily LUTEIN 90449515 408 Active Hope Benavidez MD PhD Active TRIAMTERENE-HCTZ 37.5-25 MG ORAL TABLET 1 tab by mouth daily 10/22 TRIAMTERENE-HCTZ 58037770042 Active LETY Rossi Activ e CYCLOBENZAPRINE HCL 10 MG ORAL TABLET 1 tablet by mout h three times daily as needed for headaches CYCLOBENZAPRINE HCL 76420574505 No Longer Active Adam Yates MD Active OMEPRAZOLE 20 MG ORAL CAPSULE DELAYED RELEASE 1 tablet by mo [facility] daily for GERD OMEPRAZOLE 74928624513 No Longer Active Adam Yates MD Active ZOFRAN 8 MG ORAL TABLET 1 tab by mouth every 12 hours prn 4 ONDANSETRON HCL 88479277833 No Longer Active Adam Yates MD Active PHENADOZ 25 MG RECTAL SUPPOSITORY 1 every 4 hrs. PRN 2 PROMETHAZINE HCL 94042131704 No Longer Active Adam Yates MD A ctive POTASSIUM CHLORIDE 20 MEQ ORAL PACKET by mouth twice a day prn 2 POTASSIUM CHLORIDE 96309551946 No Longer Active Adam Carpenter MD Active PROMETHAZINE HCL 25 MG ORAL TABLET 1 Q. 4 hr. PRN PROMETHAZINE HCL 40141736581 No Longer Active Adam Yates MD Active INNOPRAN XL 120 MG ORAL CAPSULE EXTENDED RELEASE 24 HO UR Take one by mouth daily PROPRANOLOL HCL SR BEADS 25006768172 No Longer Active Adam Yates MD Active FLAGYL 500 MG ORAL TABLET 1 pill by mouth three times daily, for diarrhea METRONIDAZOLE 84852847626 No Longer Active Hope landers MD PhD Active DYAZIDE 37.5-25 MG ORAL CAPSULE 1 qd TRIA MTERENE-HCTZ 39545690625 No Longer Active Hope Benavidez MD PhD Active PROZAC 20 MG ORAL CAPSULE 1 q d FLUOXETINE HCL 12078682610 No Longer Active Hope Benavidez MD PhD Active SIMVASTATIN 40 MG ORAL TABLET 1 qd SIMVAS TATIN 58978058304 No Longer Active Adam Yates MD Active MELOXICAM 15 MG ORAL TABLET 1 qd MELOXICAM 67860959260 No Longer Active Adam Yates MD Active IMODIUM A-D 2 MG ORAL TABLET 2 onset at diarrhea and prn. LOPERAMIDE HCL 72354076107 Active Hope Benavidez MD PhD Active EXCEDRIN EXTRA STRENGTH 250-250-65 MG ORAL TABLET 1-2 q6h NM N headache [id number] 11118534941 Active Hope Benavidez MD PhD Active FLAGYL 500 MG ORAL TABLET 1 qid METRONIDAZOL E 85364267128 No Longer Active Adam Yates MD Active LEVAQUIN 750 MG ORAL TABLET 1 qd LEVOFLOXAC IN 81473231923 No Longer Active Adam Yates MD Active ADULT ASPIRIN LOW STRENGTH 81 MG ORAL TABLET DISINTEGRATING 1 qd ASPIRIN 25353143977 Active Hope Benavidez MD PhD Active LEVAQUIN 750 MG ORAL TABLET 1 qd LEVAQUIN 750 MG ORAL TABLET 426065 LEVOFLOXACIN Inactive FLAGYL 500 MG ORAL TABLET 1 qid FLAGYL 500 MG ORAL TABLET 727070 METRONIDAZOLE Inactive MELOXICAM 15 MG ORAL TABLET 1 qd MELOXICAM 15 MG ORAL TABLET 651667 MELOXICAM Inactive SIMVASTATIN 40 MG ORAL TABLET 1 qd SIMVASTATIN 40 MG ORAL TABLET 366338 SIMVASTATIN Inactive PROZAC 20 MG ORAL CAPSULE 1 q d PROZAC 20 MG ORAL CAPSULE 329837 FLUOXETINE HCL Inactive DYAZIDE 37.5-25 MG ORAL CAPSULE 1 qd 5 DYAZIDE 37.5-25 MG ORAL CAPSULE 839971 TRIAMTERENE-HCTZ Inactive INNOPRAN XL 120 MG ORAL CAPSULE EXTENDED RELEASE 24 HO UR Take one by mouth daily INNOPRAN XL 120 MG ORAL CAPSULE EXTENDED RELEASE 24 HOUR PROPRANOLOL HCL SR BEADS Inactive PROMETHAZINE HCL 25 MG ORAL TABLET 1 Q. 4 hr. PRN 2013 PROMETHAZINE HCL 25 MG ORAL TABLET 504580 PROMETHAZINE HCL Inactive POTASSIUM CHLORIDE 20 MEQ ORAL PACKET by mouth twice a day prn 2 POTASSIUM CHLORIDE 20 MEQ ORAL PACKET 7171391 POTASSIUM CHLORIDE Inactive PHENADOZ 25 MG RECTAL SUPPOSITORY 1 every 4 hrs. PRN 2 014/09/10 PHENADOZ 25 MG RECTAL SUPPOSITORY 550145 PROMETHAZINE HCL Inactive ZOFRAN 8 MG ORAL TABLET 1 tab by mouth every 12 hours prn 4 ZOFRAN 8 MG ORAL TABLET 633696 ONDANSETRON HCL Inactive OMEPRAZOLE 20 MG ORAL CAPSULE DELAYED RELEASE 1 tablet by mo uth daily for GERD OMEPRAZOLE 20 MG ORAL CAPSULE DELAYED RELEASE 19 8051 OMEPRAZOLE Inactive CYCLOBENZAPRINE HCL 10 MG ORAL TABLET 1 tablet by mout h three times daily as needed for headaches CYCLOBENZAPRINE HCL 10 MG ORAL TABLET 982035 CYCLOBENZAPRINE HCL Inactive VITAMIN D3 4000 IU 1 tab 3 times daily VITAMIN D3 4000 IU Inactive PROPRANOLOL HCL 80 MG ORAL TABLET 1 tab tue. and thur. PROPRANOLOL HCL 80 MG ORAL TABLET 152909 PROPRANOLOL HCL Inacti ve CYANOCOBALAMIN 1000 MCG/ML INJECTION SOLUTION 1 injection ev ruben 2 weeks CYANOCOBALAMIN 1000 MCG/ML INJECTION SOLUTION 30 9594 CYANOCOBALAMIN Inactive MAGNESIUM GLUCONATE 250 MG ORAL TABLET 1 tab tid 20 23/10/23 MAGNESIUM GLUCONATE 250 MG ORAL TABLET 558292 MAGNESIUM GLUCONATE Inactive LOMOTIL 2.5-0.025 MG ORAL TABLET 1 tab by mouth prn 20 23/10/23 LOMOTIL 2.5-0.025 MG ORAL TABLET 4908799 DIPHENOXYLATE-ATROPINE Inac tive FLORANEX ORAL PACKET 1 pack three times daily, for bowel health FLORANEX ORAL PACKET LACTOBACILLUS Inactive IRON 325 (65 Fe) MG ORAL TABLET 1 every other day 2015 IRON 325 (65 Fe) MG ORAL TABLET 255728 FERROUS SULFATE Inactive FLAGYL 500 MG ORAL TABLET 1 pill by mouth three times daily, for diarrhea FLAGYL 500 MG ORAL TABLET 156718 METRONIDAZOLE I nactive BACTRIM DS 800-160 MG ORAL TABLET 1 pill by mouth twice claudio y, for UTI BACTRIM DS 800-160 MG ORAL TABLET 334176 SULFAMETHOXAZOLE-TRIMETHOPRIM Inactive Advance Directives Directive Description Start [...] g/g{creat} 0-29 blood glucose 80 mg/dL 65-110 urea nitrogen, blood 23 mg/dL 7-18 creatinine, serum 1.09 mg/dL 0.60-1.30 TSH 1.11 m[iU]/mL 0.36-3.74 thyroxine, serum, free 0.85 ng/dL 0.59-1.17 carbon dioxide, venous blood 32.5 mmol/L 21.0-32 .0 chloride, serum 101 mmol/L 98-107 potassium, serum 4.0 mmol/L 3.5-5.2 sodium, serum 138 mmol/L 839-950 9989/12/15 calcium, serum 9.1 mg/dL 8.5-10.1 Lab Report: Basic Metabolic Panel, Thyro id Stimulating Hormone (L), Free ... - Lab microalbumin, urine 10 mg/L 0-19 Lab Report: Calcium - Chemistry calcium, serum 9.9 mg/dL 8.5-10.1 Lab Report: CEA - Serology carcinoembryonic antigen 0.6 ng/mL Lab Report: Comp. Metabolic Panel - Chem istry sodium, serum 142 mmol/L 881-911 8456/04/19 carbon dioxide, venous blood 30.2 mmol/L 21.0-32 [...] 0.00-1.00 Encounters Code Encounter Date Provider Facility CPT-86770 Level 3 Est. Patient 08:15:24 METER ENGINEER Kylie Lund [facility] CPT-08263 Level 2 Est. Patient 14:27:16 METER ENGINEER Kylie Lund [facility] CPT-39901 Level 3 Est. Patient 17:54:[address] [facility] CPT-49239 Level 3 Est. Patient 16:26:30 CDT Kina blackmon [facility] CPT-07920 Level 3 New Patient 16:22:01 METER ENGINEER Adam Yates MD [facility] CPT-13179 Level 4 Est. Patient 17:00:[address] [facility] CPT-74255 Level 3 Est. Patient 13:15:54 CDT Kylie Lund [facility] CPT-98595 Level 3 Est. Patient 09:10:11 CDT Kylie Lund [facility] CPT-56529 Level 4 Est. Patient 12:08:30 METER ENGINEER Hope cohn MD [facility] CPT-98657 Level 4 Est. Patient 19:08:42 METER ENGINEER Hope cohn MD PhD [facility] CPT-50317 Level 4 Est. Patient 20:04:51 CDT Hope cohn MD PhD [facility] CPT-03809 Level 3 New Patient 01:46:11 METER ENGINEER Hope landers MD PhD [facility] Procedures Code Procedure Name Date Entry Date Standard Desc ription CPT-69822 Venipuncture Draw Fee 10:59:04 CDT CPT-42532 CMP - LAB USE ONLY 10:59:04 CDT CPT-80755 CBC with Diff - LAB USE ONLY 10:59:03 CDT 2 CPT-J0897 Prolia 60 mg 15:46:54 METER ENGINEER CPT-20776 Abx/Therapy Injection 15:46:54 METER ENGINEER CPT-71056 Microalbumin - LAB USE ONLY 09:41:32 METER ENGINEER 20 23/01/15 CPT-53055 Free T4 - LAB USE ONLY 09:41:32 METER ENGINEER CPT-65674 TSH - LAB USE ONLY 09:41:32 METER ENGINEER CPT-17845 BMP - LAB USE ONLY 09:41:32 METER ENGINEER CPT-24055 Venipuncture Draw Fee 09:41:32 METER ENGINEER CPT-11228 First Vx - Ix admin for Medicare patients 11:19:30 CDT CPT-30329 Fluzone High-Dose Intramuscular Suspension 12/07 11:19:30 CDT CPT-J0897 Prolia 60 mg 14:55:42 CDT CPT-88572 Abx/Therapy Injection 14:55:42 CDT CPT-43627 Bone Density - XRAY USE ONLY 10:27:12 CDT 2 CPT-G0439 Subsequent Annual Wellness Exam 17:54:53 CDT CPT-90088 Foot, left, comp min 3V - XRAY USE ONLY 12:22:49 CDT CPT-G0009 Administration of Pneumococcal Vaccine 3 12:18:00 CDT CPT-22326 Pneumovax 23 Injection Injectable 25 MCG /0.5ML 12:18:00 CDT CPT-J0897 Prolia 60 mg 14:14:16 METER ENGINEER CPT-73276 Abx/Therapy Injection 14:14:15 METER ENGINEER CPT-41648 Lipid - LAB USE ONLY 10:01:52 METER ENGINEER 2 CPT-92913 Calcium - LAB USE ONLY 10:01:51 METER ENGINEER CPT-82687 Venipuncture Draw Fee 10:01:51 METER ENGINEER CPT-LR Lesion Removal 16:22:01 METER ENGINEER CPT-02529 TSH - LAB USE ONLY 14:26:02 CDT CPT-94805 CMP - LAB USE ONLY 14:26:01 CDT CPT-58676 CBC with Diff - LAB USE ONLY 14:26:01 CDT 2 CPT-41195 Venipuncture Draw Fee 14:26:01 CDT CPT-42485 First Vx - Ix admin for Medicare patients 13:27:08 CDT CPT-29237 Fluzone High-Dose Intramuscular Suspension 11/26 13:27:08 CDT CPT-G0438 Initial Annual Wellness Exam 14:19:57 CD T CPT-G0009 Administration of Pneumococcal Vaccine 9 11:36:25 CDT CPT-66021 Prevnar 13 Intramuscular Suspension 1 1:36:25 CDT CPT-46349 Prevnar 13 Intramuscular Suspension 1 0:40:58 CDT CPT-J0897 Prolia 60 mg 10:37:16 CDT CPT-09205 Abx/Therapy Injection 10:37:16 CDT CPT-J0897 Prolia 60 mg 16:09:34 METER ENGINEER CPT-J0897 Prolia 60 mg 11:10:35 METER ENGINEER CPT-06799 Abx/Therapy Injection 11:10:35 METER ENGINEER CPT-000 Give Appropriate Flu Vaccine 17:01:15 METER ENGINEER 2 CPT-90446 Fluzone High Dose (65+) 15:03:08 METER ENGINEER 02/15 CPT-23096 Immunization Single Admin 15:03:08 METER ENGINEER 2014 CPT-OV Office Visit 15:58:06 CDT CPT-J0897 Prolia 60 mg 08:45:38 CDT CPT-99422 Abx/Therapy Injection 08:45:38 CDT CPT-J3420 Vitamin B12 1000mcg (Cyanocobalamin) 09:26:20 METER ENGINEER CPT-08186 Abx/Therapy Injection 09:26:20 METER ENGINEER CPT-J3420 Vitamin B12 1000mcg (Cyanocobalamin) 09:44:40 METER ENGINEER CPT-66423 Abx/Therapy Injection 09:44:40 METER ENGINEER CPT-J3420 Vitamin B12 1000mcg (Cyanocobalamin) 09:15:54 METER ENGINEER CPT-44010 Abx/Therapy Injection 09:15:54 METER ENGINEER CPT-J3420 Vitamin B12 1000mcg (Cyanocobalamin) 09:46:44 METER ENGINEER CPT-62755 Abx/Therapy Injection 09:46:44 METER ENGINEER CPT-J3420 Vitamin B12 1000mcg (Cyanocobalamin) 09:47:34 METER ENGINEER CPT-73115 Abx/Therapy Injection 09:47:34 METER ENGINEER CPT-J3420 Vitamin B12 1000mcg (Cyanocobalamin) 14:35:50 METER ENGINEER CPT-J3420 Vitamin B12 1000mcg (Cyanocobalamin) 09:25:05 METER ENGINEER CPT-61518 Abx/Therapy Injection 09:25:05 METER ENGINEER CPT-G0008 Administration of Influenza Virus Vaccine 13:36:47 CDT CPT-70929 Fluzone High-Dose Intramuscular Suspension 11/15 13:36:47 CDT CPT-J0897 Prolia 60 mg 08:50:41 CDT CPT-63410 Abx/Therapy Injection 08:50:41 CDT CPT-88977 Bone Density 12:06:12 CDT CPT-36918 Bone Density 08:54:40 CDT CPT-OV Office Visit 15:37:02 CDT CPT-80341 Postop F/U Visit 15:47:49 CDT CPT-45071 Postop F/U Visit 15:21:02 CDT CPT-[facility] Transitional Care Mgmt-High 07:52:27 CDT 20 20/06/01 CPT-15986 Venipuncture Draw Fee 13:51:18 CDT CPT-00755 Venipuncture Draw Fee 10:14:55 METER ENGINEER CPT-51447 Venipuncture Draw Fee 13:39:45 METER ENGINEER CPT-OV Office Visit 15:11:22 METER ENGINEER CPT-60250 Venipuncture Draw Fee 09:20:49 METER ENGINEER CPT-60102 Venipuncture Draw Fee 16:52:15 METER ENGINEER CPT-03642 Venipuncture Draw Fee 10:37:24 METER ENGINEER CPT-38563 Venipuncture Draw Fee 08:21:21 METER ENGINEER CPT-95638 Venipuncture Draw Fee 08:30:20 METER ENGINEER CPT-05530 Venipuncture Draw Fee 14:53:21 METER ENGINEER CPT-03725 Venipuncture Draw Fee 09:40:56 METER ENGINEER CPT-95406 Venipuncture Draw Fee 10:30:47 METER ENGINEER CPT-87617 Venipuncture Draw Fee 10:46:17 METER ENGINEER CPT-52985 Venipuncture Draw Fee 11:12:45 METER ENGINEER CPT-59083 Venipuncture Draw Fee 09:53:33 METER ENGINEER CPT-28249 Venipuncture Draw Fee 11:53:51 METER ENGINEER CPT-32349 Venipuncture Draw Fee 10:33:50 METER ENGINEER CPT-73697 Venipuncture Draw Fee 10:05:01 METER ENGINEER CPT-14015 Venipuncture Draw Fee 14:32:52 METER ENGINEER CPT-17035 Venipuncture Draw Fee 09:46:13 METER ENGINEER CPT-13477 Venipuncture Draw Fee 11:34:27 METER ENGINEER CPT-56154 Venipuncture Draw Fee 13:17:16 METER ENGINEER CPT-73827 Venipuncture Draw Fee 12:05:39 CDT CPT-42598 Venipuncture Draw Fee 12:49:12 CDT CPT-26295 Venipuncture Draw Fee 12:37:18 CDT CPT-53202 Venipuncture Draw Fee 10:57:11 CDT CPT-43773 Venipuncture Draw Fee 13:47:40 CDT CPT-57820 Venipuncture Draw Fee 10:02:17 CDT CPT-20301 TB Tubersol 17:32:32 CDT CPT-OV Office Visit 16:21:53 CDT CPT-OV Office Visit 15:49:22 CDT CPT-OV Office Visit 17:16:31 CDT CPT-OV Office Visit 10:43:31 CDT
--- OUTSIDE RECORDS SUMMARY | 2019-02-09 12:54 | XMS REPORT | Clinical Summary ---
Author Author Renaldo, Florecita Munoz Organization [facility] [employer] Address Unknown Phone Unavailable Allergies, Adverse Reactions, [...] PhD Hyperpotassemia GERD 530.81 Resolved Kylie Yokum TEMPLATE CUTTER Esophageal reflux Health maintenance exam V70.0 Resolved Cheryl Yates MD Routine general medical examination at a health care facility Anemia 285.9 Resolved Kylie Yanet TEMPLATE CUTTER Anemia, unspecified Personal history of malignant neoplasm of large intestine V10.05 Active Adam Yates MD Personal history of malignant neoplasm of large intestine Hypomagnesemia 275.2 Resolved Kylie Yanet TEMPLATE CUTTER Disorders of magnesium metabolism Weakness 780.79 Resolved [...] D deficiency Peripheral neuropathy 356.9 Active Hope Benaviedz MD PhD Unspecified hereditary and idiopathic peripheral neuropathy Vitamin B12 deficiency 266.2 Active Citlaly Meff ord RMA Other B-complex deficiencies Adenocarcinoma, ascending colon 153.6 Resolved 2015 Adam Yates MD Malignant neoplasm of ascending colon Sebaceous cyst, scalp 706.2 Resolved Kylie Yokum TEMPLATE CUTTER Sebaceous cyst Cervical lymphadenopathy, anterior, left 785.6 Resolv ed Kylie Yokum TEMPLATE CUTTER Enlargement of lymph nodes Need for prophylactic vaccination and inoculation against in fluenza V04.81 Resolved Adam Yates MD Need for prophylactic vaccination and inoculation against influenza Preventive health care V70.0 Active Kylie Yokum TEMPLATE CUTTER Routine general medical examination at a health care facility Thyroid nodule, left 241.0 Active Kylie Yokum A PRN Nontoxic uninodular goiter Screening mammogram V76.12 Active Kylie Yogabbium AP RN Other screening mammogram Mandy 706.2 Resolved Kylie Yokum TEMPLATE CUTTER Sebaceous cyst Colon cancer, ascending 153.6 Resolved Kylie Yok um TEMPLATE CUTTER Malignant neoplasm of ascending colon Foot pain, left 729.5 Active 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 Pain in limb Splinter 919.6 Active Kylie Yokum TEMPLATE CUTTER Superficial foreign body (splinter) of other, multiple, and unspecified sites, without major open wound and without mention of infection Rash 782.1 Active Kylie Yokum TEMPLATE CUTTER R aur[place] and other nonspecific skin eruption ADENOCARCINOMA, COLON, 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 Dick Yates MD FEVER UNSPECIFIED ICD-780.60 Inactive Hope cohn MD PhD UNSPECIFIED VENOUS INSUFFICIENCY ICD-459.81 [place] ctive Adam Yates MD ADENOCARCINOMA, 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 Inac abdelrahman Benavidez MD PhD Hyperkalemia ICD-276.7 Inactive Hope Beanvidez MD PhD GERD ICD-530.81 Inactive Kylie Yanet TEMPLATE CUTTER 2015 Health maintenance exam ICD-V70.0 Inactive Cheryl Yates MD Anemia ICD-285.9 Inactive Kylie Yanet TEMPLATE CUTTER 07/24 ABDOMINAL PAIN, GENERALIZED ICD-789.07 Inactive Hope Benavidez MD PhD ABDOMINAL PAIN, RIGHT LOWER QUADRANT ICD-789.03 Inactive Kina Joshua TEMPLATE CUTTER Hypomagnesemia ICD-275.2 Inactive Kylieshubham Holt TEMPLATE CUTTER Weakness ICD-780.79 Inactive Hope Benavidez MD P hD Asymptomatic postmenopausal status (age-related) (natural) I CD-V49.81 Inactive Hope Benavidez MD PhD Aftercare following surgery of the teeth,oral cavity a nd digestive system, NEC ICD-V58.75 Inactive Adam Yates MD Colon cancer ICD-153.9 Inactive Adam luna MD Dysuria ICD-788.1 Inactive Hope Benavidez MD PhD 201 05/19/01 Adenocarcinoma, ascending colon ICD-153.6 Inacheryl Yates MD Sebaceous cyst, scalp ICD-706.2 Inactive Tracy Holt TEMPLATE CUTTER Cervical lymphadenopathy, anterior, left ICD-785.6 Inactive Kylie Holt TEMPLATE CUTTER Need for prophylactic vaccination and inoculation against in fluenza ICD-V04.81 Inactive Adam Yates MD Mandy ICD-706.2 Inactive Kylie Holt TEMPLATE CUTTER 07/20 Colon cancer, ascending ICD-153.6 Inactive K jannyi Yanet AMY Diarrhea, functional ICD-564.5 Inactive Selena Yates MD Medication List Medication Instructions Start Date Stop Date Generic Name NDC Status Provider Patient Instruction VOLTAREN 1 % TRANSDERMAL GEL apply q 6-8 hour to left arm as needed for pain DICLOFENAC SODIUM 75168496247 Active Kylie Holt TEMPLATE CUTTER Active COQ10 100 MG ORAL CAPSULE 1 daily COENZYME Q10 200973 45035 Active LETY Nation Active VITAMIN D3 2000 UNIT ORAL CAPSULE Melaleuca-One daily CHOLECALCIFEROL 12016507273 Active Kylie Holt TEMPLATE CUTTER Active PROBIOTIC DAILY ORAL CAPSULE Take one daily PROBIO TIC PRODUCT 22917173388 Active Kylie Holt APRN Active IRON 325 (65 Fe) MG ORAL TABLET 1 every other day FERROUS SULFATE 88316388667 No Longer Active Kylie Holt AMY Active FLORANEX ORAL PACKET 1 pack three times daily, for bowel health LACTOBACILLUS 11759064232 No Longer Active Kylie Holt TEMPLATE CUTTER Active LOMOTIL 2.5-0.025 MG ORAL TABLET 1 tab by mouth prn 23/10/23 DIPHENOXYLATE-ATROPINE 36171421825 No Longer Active Kylie Lundum TEMPLATE CUTTER Active MAGNESIUM GLUCONATE 250 MG ORAL TABLET 1 tab tid 23/10/23 MAGNESIUM GLUCONATE 81912417375 No Longer Active Kylie Lundum TEMPLATE CUTTER Active CYANOCOBALAMIN 1000 MCG/ML INJECTION SOLUTION 1 injection ev ruben 2 weeks CYANOCOBALAMIN 42333995327 No Longer Active Kylie boyd TEMPLATE CUTTER Active ATENOLOL 25 MG ORAL TABLET 1/2 pill by mouth daily, fo r headaches, blood pressure ATENOLOL 76180274710 Active Kylie Holt TEMPLATE CUTTER Active PROPRANOLOL HCL 80 MG ORAL TABLET 1 tab tue. and thur. PROPRANOLOL HCL 43330598511 No Longer Active Hope Benavidez MD PhD A ctive VITAMIN D3 4000 IU 1 tab 3 times daily VITAMIN D3 4000 IU No Longer Active Hope Benavidez MD PhD Active BACTRIM DS 800-160 MG ORAL TABLET 1 pill by mouth twice claudio y, for UTI SULFAMETHOXAZOLE-TRIMETHOPRIM 11011886153 No Longer Active Hope Benavidez MD PhD Active PROLIA 60 MG/ML SUBCUTANEOUS SOLUTION 1 shot every 6 months for osteoprosis DENOSUMAB 39256261072 Active Hope Benavidez MD PhD Active CALCIUM + D + K 750-500-40 MG-UNT-MCG ORAL TABLET 1 tab by m harvinder twice daily CALCIUM-VITAMIN D-VITAMIN K 01559905813 Active Hope valdez MD PhD Active DAILY VALUE MULTIVITAMIN ORAL TABLET 1 tab by mouth twice daily 201 05/16/14 MULTIPLE VITAMIN 32199550359 Active Hope Benavidez MD PhD Acti ve FISH OIL 306 MG CAPS 1 tab by mouth three times daily OMEGA-3 FATTY ACIDS 33004629726 Active Hope Benavidez MD PhD Active LUTEIN 10 MG ORAL TABLET 1 tab daily LUTEIN 23489597 408 Active Hope Benavidez MD PhD Active TRIAMTERENE-HCTZ 37.5-25 MG ORAL TABLET 1 tab by mouth daily 10/22 TRIAMTERENE-HCTZ 56228463587 Active LETY Rossi CYCLOBENZAPRINE HCL 10 MG ORAL TABLET 1 tablet by mout h three times daily as needed for headaches CYCLOBENZAPRINE HCL 07489457945 No Longer Active Adam Yates MD Active OMEPRAZOLE 20 MG ORAL CAPSULE DELAYED RELEASE 1 tablet by mo [facility] daily for GERD OMEPRAZOLE 60256009906 No Longer Active Adam Yates MD Active ZOFRAN 8 MG ORAL TABLET 1 tab by mouth every 12 hours prn 4 ONDANSETRON HCL 89059705412 No Longer Active Adam Yates MD Active PHENADOZ 25 MG RECTAL SUPPOSITORY 1 every 4 hrs. PRN 2 PROMETHAZINE HCL 38271698208 No Longer Active Adam Yates MD A ctive POTASSIUM CHLORIDE 20 MEQ ORAL PACKET by mouth twice a day prn 2 POTASSIUM CHLORIDE 48715039809 No Longer Active Adam Carpenter MD Active PROMETHAZINE HCL 25 MG ORAL TABLET 1 Q. 4 hr. PRN PROMETHAZINE HCL 50281473655 No Longer Active Adam Yates MD Active INNOPRAN XL 120 MG ORAL CAPSULE EXTENDED RELEASE 24 HO UR Take one by mouth daily PROPRANOLOL HCL SR BEADS 58933541376 No Longer Active Adam Yates MD Active FLAGYL 500 MG ORAL TABLET 1 pill by mouth three times daily, for diarrhea METRONIDAZOLE 62133288338 No Longer Active Hope landers MD PhD Active DYAZIDE 37.5-25 MG ORAL CAPSULE 1 qd TRIA MTERENE-HCTZ 72248114696 No Longer Active Hope Benavidez MD PhD Active PROZAC 20 MG ORAL CAPSULE 1 q d FLUOXETINE HCL 36944299983 No Longer Active Hope Benavidez MD PhD Active SIMVASTATIN 40 MG ORAL TABLET 1 qd SIMVAS TATIN 24102755340 No Longer Active Adam Yates MD Active MELOXICAM 15 MG ORAL TABLET 1 qd MELOXICAM 23859598696 No Longer Active Adam Yates MD Active IMODIUM A-D 2 MG ORAL TABLET 2 onset at diarrhea and prn. LOPERAMIDE HCL 50978944090 Active Hope Benavidez MD PhD Active EXCEDRIN EXTRA STRENGTH 250-250-65 MG ORAL TABLET 1-2 q6h NC N headache [id number] 74110459879 Active Hope Benavidez MD PhD Active FLAGYL 500 MG ORAL TABLET 1 qid METRONIDAZOL E 59667171315 No Longer Active Adam Yates MD Active LEVAQUIN 750 MG ORAL TABLET 1 qd LEVOFLOXAC IN 08514516309 No Longer Active Adam Yates MD Active ADULT ASPIRIN LOW STRENGTH 81 MG ORAL TABLET DISINTEGRATING 1 qd ASPIRIN 22736514231 Active Hope Benavidez MD PhD Active LEVAQUIN 750 MG ORAL TABLET 1 qd LEVAQUIN 750 MG ORAL TABLET 057483 LEVOFLOXACIN Inactive FLAGYL 500 MG ORAL TABLET 1 qid FLAGYL 500 MG ORAL TABLET 231332 METRONIDAZOLE Inactive MELOXICAM 15 MG ORAL TABLET 1 qd MELOXICAM 15 MG ORAL TABLET 726620 MELOXICAM Inactive SIMVASTATIN 40 MG ORAL TABLET 1 qd SIMVASTATIN 40 MG ORAL TABLET 442260 SIMVASTATIN Inactive PROZAC 20 MG ORAL CAPSULE 1 q d PROZAC 20 MG ORAL CAPSULE 137118 FLUOXETINE HCL Inactive DYAZIDE 37.5-25 MG ORAL CAPSULE 1 qd 5 DYAZIDE 37.5-25 MG ORAL CAPSULE 567159 TRIAMTERENE-HCTZ Inactive INNOPRAN XL 120 MG ORAL CAPSULE EXTENDED RELEASE 24 HO UR Take one by mouth daily INNOPRAN XL 120 MG ORAL CAPSULE EXTENDED RELEASE 24 HOUR PROPRANOLOL HCL SR BEADS Inactive PROMETHAZINE HCL 25 MG ORAL TABLET 1 Q. 4 hr. PRN 2013 PROMETHAZINE HCL 25 MG ORAL TABLET 059433 PROMETHAZINE HCL Inactive POTASSIUM CHLORIDE 20 MEQ ORAL PACKET by mouth twice a day prn 2 POTASSIUM CHLORIDE 20 MEQ ORAL PACKET 0852816 POTASSIUM CHLORIDE Inactive PHENADOZ 25 MG RECTAL SUPPOSITORY 1 every 4 hrs. PRN 2 PHENADOZ 25 MG RECTAL SUPPOSITORY 328915 PROMETHAZINE HCL Inactive ZOFRAN 8 MG ORAL TABLET 1 tab by mouth every 12 hours prn 4 ZOFRAN 8 MG ORAL TABLET 896292 ONDANSETRON HCL Inactive OMEPRAZOLE 20 MG ORAL CAPSULE DELAYED RELEASE 1 tablet by mo uth daily for GERD OMEPRAZOLE 20 MG ORAL CAPSULE DELAYED RELEASE 19 8051 OMEPRAZOLE Inactive CYCLOBENZAPRINE HCL 10 MG ORAL TABLET 1 tablet by mout h three times daily as needed for headaches CYCLOBENZAPRINE HCL 10 MG ORAL TABLET 382831 CYCLOBENZAPRINE HCL Inactive VITAMIN D3 4000 IU 1 tab 3 times daily VITAMIN D3 4000 IU Inactive PROPRANOLOL HCL 80 MG ORAL TABLET 1 tab tue. and thur. PROPRANOLOL HCL 80 MG ORAL TABLET 446964 PROPRANOLOL HCL Inacti ve CYANOCOBALAMIN 1000 MCG/ML INJECTION SOLUTION 1 injection ev ruben 2 weeks CYANOCOBALAMIN 1000 MCG/ML INJECTION SOLUTION 30 9594 CYANOCOBALAMIN Inactive MAGNESIUM GLUCONATE 250 MG ORAL TABLET 1 tab tid 20 23/10/23 MAGNESIUM GLUCONATE 250 MG ORAL TABLET 180135 MAGNESIUM GLUCONATE Inactive LOMOTIL 2.5-0.025 MG ORAL TABLET 1 tab by mouth prn 20 23/10/23 LOMOTIL 2.5-0.025 MG ORAL TABLET 8916937 DIPHENOXYLATE-ATROPINE Inac tive FLORANEX ORAL PACKET 1 pack three times daily, for bowel health FLORANEX ORAL PACKET LACTOBACILLUS Inactive IRON 325 (65 Fe) MG ORAL TABLET 1 every other day 2015 IRON 325 (65 Fe) MG ORAL TABLET 741893 FERROUS SULFATE Inactive FLAGYL 500 MG ORAL TABLET 1 pill by mouth three times daily, for diarrhea FLAGYL 500 MG ORAL TABLET 312723 METRONIDAZOLE I nactive BACTRIM DS 800-160 MG ORAL TABLET 1 pill by mouth twice claudio y, for UTI BACTRIM DS 800-160 MG ORAL TABLET 624700 SULFAMETHOXAZOLE-TRIMETHOPRIM Inactive Advance Directives Directive Description Start [...] ... - Chemistry sodium, serum 138 mmol/L 636-151 7458/12/15 potassium, serum 4.0 mmol/L 3.5-5.2 chloride, serum [...] 11 .0-15.0 platelet count 157 THOUSAND/UL 10*3/mm3 068-471 5252/04/20 mean platelet volume 8.9 fL 7.5-12.5 Lab Report: CEA - Serology carcinoembryonic antigen 0.9 ng/mL Encounters Code Encounter Date Provider Facility CPT-68318 Level 2 Est. Patient 14:27:16 COURTESY CLERK Kylie boyd [facility] CPT-38743 Level 3 Est. Patient 17:54:48 CDT Kylie boyd [facility] CPT-21077 Level 3 Est. Patient 16:26:30 CDT Kina blackmon [facility] CPT-25976 Level 3 New Patient 16:22:01 COURTESY CLERK Adam Yates MD [facility] CPT-86906 Level 4 Est. Patient 17:00:48 CDT [facility] CPT-44006 Level 3 Est. Patient 13:15:54 CDT Kylie boyd [facility] CPT-78285 Level 3 Est. Patient 09:10:11 CDT Kylie boyd [facility] CPT-97104 Level 4 Est. Patient 12:08:30 COURTESY CLERK Hope cohn MD [facility] CPT-08813 Level 4 Est. Patient 19:08:42 COURTESY CLERK Hope cohn MD PhD [facility] CPT-13672 Level 4 Est. Patient 20:04:51 CDT Hope cohn MD PhD [facility] CPT-64726 Level 3 New Patient 01:46:11 COURTESY CLERK Hope landers MD PhD [facility] Procedures Code Procedure Name Date Entry Date Standard Desc ription CPT-78220 Microalbumin - LAB USE ONLY 09:41:32 COURTESY CLERK 20 23/01/15 CPT-87260 Free T4 - LAB USE ONLY 09:41:32 COURTESY CLERK CPT-05573 TSH - LAB USE ONLY 09:41:32 COURTESY CLERK CPT-10622 BMP - LAB USE ONLY 09:41:32 COURTESY CLERK CPT-02108 Venipuncture Draw Fee 09:41:32 COURTESY CLERK CPT-28607 First Vx - Ix admin for Medicare patients 11:19:30 CDT CPT-58401 Fluzone High-Dose Intramuscular Suspension 12/07 11:19:30 CDT CPT-J0897 Prolia 60 mg 14:55:42 CDT CPT-30241 Abx/Therapy Injection 14:55:42 CDT CPT-96118 Bone Density - XRAY USE ONLY 10:27:12 CDT 2 CPT-G0439 Subsequent Annual Wellness Exam 17:54:53 CDT CPT-51913 Foot, left, comp min 3V - XRAY USE ONLY 12:22:49 CDT CPT-G0009 Administration of Pneumococcal Vaccine 3 12:18:00 CDT CPT-75650 Pneumovax 23 Injection Injectable 25 MCG /0.5ML 12:18:00 CDT CPT-J0897 Prolia 60 mg 14:14:16 COURTESY CLERK CPT-54887 Abx/Therapy Injection 14:14:15 COURTESY CLERK CPT-94122 Lipid - LAB USE ONLY 10:01:52 COURTESY CLERK 2 CPT-94240 Calcium - LAB USE ONLY 10:01:51 COURTESY CLERK CPT-56440 Venipuncture Draw Fee 10:01:51 COURTESY CLERK CPT-LR Lesion Removal 16:22:01 COURTESY CLERK CPT-57456 TSH - LAB USE ONLY 14:26:02 CDT CPT-07691 CMP - LAB USE ONLY 14:26:01 CDT CPT-68222 CBC with Diff - LAB USE ONLY 14:26:01 CDT 2 CPT-82898 Venipuncture Draw Fee 14:26:01 CDT CPT-59818 First Vx - Ix admin for Medicare patients 13:27:08 CDT CPT-00609 Fluzone High-Dose Intramuscular Suspension 11/26 13:27:08 CDT CPT-G0438 Initial Annual Wellness Exam 14:19:57 CD T CPT-G0009 Administration of Pneumococcal Vaccine 9 11:36:25 CDT CPT-28637 Prevnar 13 Intramuscular Suspension 1 1:36:25 CDT CPT-40015 Prevnar 13 Intramuscular Suspension 1 0:40:58 CDT CPT-J0897 Prolia 60 mg 10:37:16 CDT CPT-11057 Abx/Therapy Injection 10:37:16 CDT CPT-J0897 Prolia 60 mg 16:09:34 COURTESY CLERK CPT-J0897 Prolia 60 mg 11:10:35 COURTESY CLERK CPT-62514 Abx/Therapy Injection 11:10:35 COURTESY CLERK CPT-000 Give Appropriate Flu Vaccine 17:01:15 COURTESY CLERK 2 CPT-60638 Fluzone High Dose (65+) 15:03:08 COURTESY CLERK 02/15 CPT-07581 Immunization Single Admin 15:03:08 COURTESY CLERK 2014 CPT-OV Office Visit 15:58:06 CDT CPT-J0897 Prolia 60 mg 08:45:38 CDT CPT-27664 Abx/Therapy Injection 08:45:38 CDT CPT-J3420 Vitamin B12 1000mcg (Cyanocobalamin) 09:26:20 COURTESY CLERK CPT-05364 Abx/Therapy Injection 09:26:20 COURTESY CLERK CPT-J3420 Vitamin B12 1000mcg (Cyanocobalamin) 09:44:40 COURTESY CLERK CPT-05995 Abx/Therapy Injection 09:44:40 COURTESY CLERK CPT-J3420 Vitamin B12 1000mcg (Cyanocobalamin) 09:15:54 COURTESY CLERK CPT-41242 Abx/Therapy Injection 09:15:54 COURTESY CLERK CPT-J3420 Vitamin B12 1000mcg (Cyanocobalamin) 09:46:44 COURTESY CLERK CPT-02834 Abx/Therapy Injection 09:46:44 COURTESY CLERK CPT-J3420 Vitamin B12 1000mcg (Cyanocobalamin) 09:47:34 COURTESY CLERK CPT-84315 Abx/Therapy Injection 09:47:34 COURTESY CLERK CPT-J3420 Vitamin B12 1000mcg (Cyanocobalamin) 14:35:50 COURTESY CLERK CPT-J3420 Vitamin B12 1000mcg (Cyanocobalamin) 09:25:05 COURTESY CLERK CPT-90001 Abx/Therapy Injection 09:25:05 COURTESY CLERK CPT-G0008 Administration of Influenza Virus Vaccine 13:36:47 CDT CPT-04874 Fluzone High-Dose Intramuscular Suspension 11/15 13:36:47 CDT CPT-J0897 Prolia 60 mg 08:50:41 CDT CPT-34561 Abx/Therapy Injection 08:50:41 CDT CPT-60747 Bone Density 12:06:12 CDT CPT-96936 Bone Density 08:54:40 CDT CPT-OV Office Visit 15:37:02 CDT CPT-86475 Postop F/U Visit 15:47:49 CDT CPT-47737 Postop F/U Visit 15:21:02 CDT CPT-TCMH Transitional Care Mgmt-High 07:52:27 CDT 20 20/06/01 CPT-92356 Venipuncture Draw Fee 13:51:18 CDT CPT-60765 Venipuncture Draw Fee 10:14:55 COURTESY CLERK CPT-38718 Venipuncture Draw Fee 13:39:45 COURTESY CLERK CPT-OV Office Visit 15:11:22 COURTESY CLERK CPT-33310 Venipuncture Draw Fee 09:20:49 COURTESY CLERK CPT-95747 Venipuncture Draw Fee 16:52:15 COURTESY CLERK CPT-02399 Venipuncture Draw Fee 10:37:24 COURTESY CLERK CPT-98815 Venipuncture Draw Fee 08:21:21 COURTESY CLERK CPT-97052 Venipuncture Draw Fee 08:30:20 COURTESY CLERK CPT-28440 Venipuncture Draw Fee 14:53:21 COURTESY CLERK CPT-78031 Venipuncture Draw Fee 09:40:56 COURTESY CLERK CPT-87767 Venipuncture Draw Fee 10:30:47 COURTESY CLERK CPT-95578 Venipuncture Draw Fee 10:46:17 COURTESY CLERK CPT-67609 Venipuncture Draw Fee 11:12:45 COURTESY CLERK CPT-95451 Venipuncture Draw Fee 09:53:33 COURTESY CLERK CPT-75812 Venipuncture Draw Fee 11:53:51 COURTESY CLERK CPT-65757 Venipuncture Draw Fee 10:33:50 COURTESY CLERK CPT-99594 Venipuncture Draw Fee 10:05:01 COURTESY CLERK CPT-31549 Venipuncture Draw Fee 14:32:52 COURTESY CLERK CPT-31800 Venipuncture Draw Fee 09:46:13 COURTESY CLERK CPT-27395 Venipuncture Draw Fee 11:34:27 COURTESY CLERK CPT-53453 Venipuncture Draw Fee 13:17:16 COURTESY CLERK CPT-67417 Venipuncture Draw Fee 12:05:39 CDT CPT-62545 Venipuncture Draw Fee 12:49:12 CDT CPT-39231 Venipuncture Draw Fee 12:37:18 CDT CPT-17323 Venipuncture Draw Fee 10:57:11 CDT CPT-70540 Venipuncture Draw Fee 13:47:40 CDT CPT-55462 Venipuncture Draw Fee 10:02:17 CDT CPT-02076 TB Tubersol 17:32:32 CDT CPT-OV Office Visit 16:21:53 CDT CPT-OV Office Visit 15:49:22 CDT CPT-OV Office Visit 17:16:31 CDT CPT-OV Office Visit 10:43:31 CDT
--- OUTSIDE RECORDS SUMMARY | 2019-02-09 12:54 | XMS REPORT | Clinical Summary ---
Author Author Admin, Florecita Munoz Organization [facility] [employer] Address Unknown Phone Unavailable Allergies, Adverse Reactions, [...] Adenocarcinoma, ascending colon 153.6 Resolved 2015 Adam Yaets MD Malignant neoplasm of ascending colon Sebaceous cyst, scalp 706.2 Resolved Kylie Yokum AQUATIC SCIENTIST Sebaceous cyst Cervical lymphadenopathy, anterior, left 785.6 Resolv ed Kylie Yokum AQUATIC SCIENTIST Enlargement of lymph nodes Need for prophylactic vaccination and inoculation against in fluenza V04.81 Resolved Adam Yates MD Need for prophylactic vaccination and inoculation against influenza Preventive health care V70.0 Active Kylie Yokum AQUATIC SCIENTIST Routine general medical examination at a health care facility Thyroid nodule, left 241.0 Active Kylie Yokum A PRN Nontoxic uninodular goiter Screening mammogram V76.12 Active Kylie Yokum AP RN Other screening mammogram Mandy 706.2 Resolved Kylie Yokum AQUATIC SCIENTIST Sebaceous cyst Colon cancer, ascending 153.6 Resolved Kylie Yok um AQUATIC SCIENTIST Malignant neoplasm of ascending colon Foot pain, left 729.5 Active Sulema Naff PROCESS LEAD Pain in limb Splinter 919.6 Active Kylie Yokum AQUATIC SCIENTIST Superficial foreign body (splinter) of other, multiple, and unspecified sites, without major open wound and without mention of infection Rash 782.1 Active Kylie Yokum AQUATIC SCIENTIST R aurora and other nonspecific skin eruption ABDOMINAL PAIN, RIGHT LOWER QUADRANT ICD-789.03 Inactive Kina Joshua AQUATIC SCIENTIST ADENOCARCINOMA, COLON, 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 Dick Yates MD ABDOMINAL PAIN, GENERALIZED ICD-789.07 Inactive Hope Benavidez MD PhD FEVER UNSPECIFIED ICD-780.60 Inactive Hope cohn MD PhD UNSPECIFIED VENOUS INSUFFICIENCY ICD-459.81 Elda ctive Adam Yates MD ADENOCARCINOMA, 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 Inac tive Hope Benavidez MD PhD Hyperkalemia ICD-276.7 Inactive Hope Benavidez MD PhD GERD ICD-530.81 Inactive Kylie Yanet AQUATIC SCIENTIST 2015 Health maintenance exam ICD-V70.0 Bam Yates MD Anemia ICD-285.9 Inactive Kylie Yanet AQUATIC SCIENTIST 07/24 Hypomagnesemia ICD-275.2 Inactive Kylie Yogabbium AQUATIC SCIENTIST Weakness ICD-780.79 Inactive Hope Benavidez MD P [...] Sebaceous cyst, scalp ICD-706.2 Inactive Tracy Lundum AQUATIC SCIENTIST Cervical lymphadenopathy, anterior, left ICD-785.6 Inactive Kylie Lundum AQUATIC SCIENTIST Need for prophylactic vaccination and inoculation against in fluenza ICD-V04.81 Inactive Adam Yates MD Mandy ICD-706.2 Inactive Kylie Lundum AMY 07/20 Colon cancer, ascending ICD-153.6 Inactive Gabbi Escalonagabbioliver AMY Medication List Medication Instructions Start Date Stop Date Generic Name ND Status Provider Patient Instruction VOLTAREN 1 % TRANSDERMAL GEL apply q 6-8 hour to left arm as needed for pain DICLOFENAC SODIUM 75966869430 Active Kylie Lundum AQUATIC SCIENTIST Active COQ10 100 MG ORAL CAPSULE 1 daily COENZYME Q10 601054 53153 Active LETY Nation Active VITAMIN D3 2000 UNIT ORAL CAPSULE Melaleuca-One daily CHOLECALCIFEROL 25507068676 Active Kylie Lundum AQUATIC SCIENTIST Active PROBIOTIC DAILY ORAL CAPSULE Take one daily PROBIO TIC PRODUCT 51777603972 Active Kylie Escalonakum AQUATIC SCIENTIST Active IRON 325 (65 Fe) MG ORAL TABLET 1 every other day FERROUS SULFATE 01767353107 No Longer Active Kylie Lundum AQUATIC SCIENTIST Active FLORANEX ORAL PACKET 1 pack three times daily, for bowel health LACTOBACILLUS 79438833012 No Longer Active Kylie Kevonum AQUATIC SCIENTIST Active LOMOTIL 2.5-0.025 MG ORAL TABLET 1 tab by mouth prn 23/10/23 DIPHENOXYLATE-ATROPINE 75309978808 No Longer Active Kylie Yokum AQUATIC SCIENTIST Active MAGNESIUM GLUCONATE 250 MG ORAL TABLET 1 tab tid 23/10/23 MAGNESIUM GLUCONATE 89243729257 No Longer Active Kylie Yokum AQUATIC SCIENTIST Active CYANOCOBALAMIN 1000 MCG/ML INJECTION SOLUTION 1 injection ev ruben 2 weeks CYANOCOBALAMIN 68214467871 No Longer Active Kylie Lund um AQUATIC SCIENTIST Active ATENOLOL 25 MG ORAL TABLET 1/2 pill by mouth daily, fo r headaches, blood pressure ATENOLOL 13186043475 Active Kylie Lundum AQUATIC SCIENTIST Active PROPRANOLOL HCL 80 MG ORAL TABLET 1 tab tue. and thur. PROPRANOLOL HCL 58790704183 No Longer Active Hope Benavidez MD PhD A ctive VITAMIN D3 4000 IU 1 tab 3 times daily VITAMIN D3 4000 IU No Longer Active Hope Benavidez MD PhD Active BACTRIM DS 800-160 MG ORAL TABLET 1 pill by mouth twice claudio y, for UTI SULFAMETHOXAZOLE-TRIMETHOPRIM 66921146202 No Longer Active Hope Benavidez MD PhD Active PROLIA 60 MG/ML SUBCUTANEOUS SOLUTION 1 shot every 6 months for osteoprosis DENOSUMAB 52921936939 Active Hope Benavidez MD PhD Active CALCIUM + D + K 750-500-40 MG-UNT-MCG ORAL TABLET 1 tab by [facility] twice daily CALCIUM-VITAMIN D-VITAMIN K 09534795346 Active Hope valdez MD PhD Active DAILY VALUE MULTIVITAMIN ORAL TABLET 1 tab by mouth twice daily 201 05/16/14 MULTIPLE VITAMIN 00415479705 Active Hope Benavidez MD PhD Acti ve FISH OIL 306 MG CAPS 1 tab by mouth three times daily OMEGA-3 FATTY ACIDS 04211828703 Active Hope Benavidez MD PhD Active LUTEIN 10 MG ORAL TABLET 1 tab daily LUTEIN 95328854 408 Active Hope Benavidez MD PhD Active TRIAMTERENE-HCTZ 37.5-25 MG ORAL TABLET 1 tab by mouth daily 10/22 TRIAMTERENE-HCTZ 78540244103 Active Kylie Escalonagabbioliver AQUATIC SCIENTIST Active CYCLOBENZAPRINE HCL 10 MG ORAL TABLET 1 tablet by mout h three times daily as needed for headaches CYCLOBENZAPRINE HCL 73093477565 No Longer Active Adam Yates MD Active OMEPRAZOLE 20 MG ORAL CAPSULE DELAYED RELEASE 1 tablet by [facility] daily for GERD OMEPRAZOLE 15384091176 No Longer Active Adam Yates MD Active ZOFRAN 8 MG ORAL TABLET 1 tab by mouth every 12 hours prn 4 ONDANSETRON HCL 56475154687 No Longer Active Adam Yates MD Active PHENADOZ 25 MG RECTAL SUPPOSITORY 1 every 4 hrs. PRN 2 PROMETHAZINE HCL 02214206944 No Longer Active Adam Yates MD A ctive POTASSIUM CHLORIDE 20 MEQ ORAL PACKET by mouth twice a day prn 2 POTASSIUM CHLORIDE 42079818096 No Longer Active Adam Carpenter MD Active PROMETHAZINE HCL 25 MG ORAL TABLET 1 Q. 4 hr. PRN PROMETHAZINE HCL 02771512065 No Longer Active Adam Yates MD Active INNOPRAN XL 120 MG ORAL CAPSULE EXTENDED RELEASE 24 HO UR Take one by mouth daily PROPRANOLOL HCL SR BEADS 81707586697 No Longer Active Adam Yates MD Active FLAGYL 500 MG ORAL TABLET 1 pill by mouth three times daily, for diarrhea METRONIDAZOLE 02129677350 No Longer Active Hope landers MD PhD Active DYAZIDE 37.5-25 MG ORAL CAPSULE 1 qd TRIA MTERENE-HCTZ 65518907345 No Longer Active Hope Benavidez MD PhD Active PROZAC 20 MG ORAL CAPSULE 1 q d FLUOXETINE HCL 71978224188 No Longer Active Hope Benavidez MD PhD Active SIMVASTATIN 40 MG ORAL TABLET 1 qd SIMVAS TATIN 11922996283 No Longer Active Adam Yates MD Active MELOXICAM 15 MG ORAL TABLET 1 qd MELOXICAM 70382499495 No Longer Active Adam Yates MD Active IMODIUM A-D 2 MG ORAL TABLET 2 onset at diarrhea and prn. LOPERAMIDE HCL 62556103021 Active Hope Benavidez MD PhD Active EXCEDRIN EXTRA STRENGTH 250-250-65 MG ORAL TABLET 1-2 q6h SD N headache [id number] 26431564097 Active Hope Benavidez MD PhD Active FLAGYL 500 MG ORAL TABLET 1 qid METRONIDAZOL E 06516320892 No Longer Active Adam Yates MD Active LEVAQUIN 750 MG ORAL TABLET 1 qd LEVOFLOXAC IN 37723231304 No Longer Active Adam Yates MD Active ADULT ASPIRIN LOW STRENGTH 81 MG ORAL TABLET DISINTEGRATING 1 qd ASPIRIN 92080786955 Active Hope Benavidez MD PhD Active LEVAQUIN 750 MG ORAL TABLET 1 qd LEVAQUIN 750 MG ORAL TABLET 095586 LEVOFLOXACIN Inactive FLAGYL 500 MG ORAL TABLET 1 qid FLAGYL 500 MG ORAL TABLET 765681 METRONIDAZOLE Inactive MELOXICAM 15 MG ORAL TABLET 1 qd MELOXICAM 15 MG ORAL TABLET 125331 MELOXICAM Inactive SIMVASTATIN 40 MG ORAL TABLET 1 qd SIMVASTATIN 40 MG ORAL TABLET 008847 SIMVASTATIN Inactive PROZAC 20 MG ORAL CAPSULE 1 q d PROZAC 20 MG ORAL CAPSULE 638046 FLUOXETINE HCL Inactive DYAZIDE 37.5-25 MG ORAL CAPSULE 1 qd 5 DYAZIDE 37.5-25 MG ORAL CAPSULE 048434 TRIAMTERENE-HCTZ Inactive INNOPRAN XL 120 MG ORAL CAPSULE EXTENDED RELEASE 24 HO UR Take one by mouth daily INNOPRAN XL 120 MG ORAL CAPSULE EXTENDED RELEASE 24 HOUR PROPRANOLOL HCL SR BEADS Inactive PROMETHAZINE HCL 25 MG ORAL TABLET 1 Q. 4 hr. PRN 2013 PROMETHAZINE HCL 25 MG ORAL TABLET 791315 PROMETHAZINE HCL Inactive POTASSIUM CHLORIDE 20 MEQ ORAL PACKET by mouth twice a day prn 2 POTASSIUM CHLORIDE 20 MEQ ORAL PACKET 8887154 POTASSIUM CHLORIDE Inactive PHENADOZ 25 MG RECTAL SUPPOSITORY 1 every 4 hrs. PRN 2 PHENADOZ 25 MG RECTAL SUPPOSITORY 702645 PROMETHAZINE HCL Inactive ZOFRAN 8 MG ORAL TABLET 1 tab by mouth every 12 hours prn 4 ZOFRAN 8 MG ORAL TABLET 863131 ONDANSETRON HCL Inactive OMEPRAZOLE 20 MG ORAL CAPSULE DELAYED RELEASE 1 tablet by mo uth daily for GERD OMEPRAZOLE 20 MG ORAL CAPSULE DELAYED RELEASE 19 8051 OMEPRAZOLE Inactive CYCLOBENZAPRINE HCL 10 MG ORAL TABLET 1 tablet by mout h three times daily as needed for headaches CYCLOBENZAPRINE HCL 10 MG ORAL TABLET 134371 CYCLOBENZAPRINE HCL Inactive VITAMIN D3 4000 IU 1 tab 3 times daily VITAMIN D3 4000 IU Inactive PROPRANOLOL HCL 80 MG ORAL TABLET 1 tab tue. and thur. PROPRANOLOL HCL 80 MG ORAL TABLET 374574 PROPRANOLOL HCL Inacti ve CYANOCOBALAMIN 1000 MCG/ML INJECTION SOLUTION 1 injection ev ruben 2 weeks CYANOCOBALAMIN 1000 MCG/ML INJECTION SOLUTION 30 9594 CYANOCOBALAMIN Inactive MAGNESIUM GLUCONATE 250 MG ORAL TABLET 1 tab tid 20 23/10/23 MAGNESIUM GLUCONATE 250 MG ORAL TABLET 452837 MAGNESIUM GLUCONATE Inactive LOMOTIL 2.5-0.025 MG ORAL TABLET 1 tab by mouth prn 20 23/10/23 LOMOTIL 2.5-0.025 MG ORAL TABLET 9693648 DIPHENOXYLATE-ATROPINE Inac tive FLORANEX ORAL PACKET 1 pack three times daily, for bowel health FLORANEX ORAL PACKET LACTOBACILLUS Inactive IRON 325 (65 Fe) MG ORAL TABLET 1 every other day 2015 IRON 325 (65 Fe) MG ORAL TABLET 632397 FERROUS SULFATE Inactive FLAGYL 500 MG ORAL TABLET 1 pill by mouth three times daily, for diarrhea FLAGYL 500 MG ORAL TABLET 258625 METRONIDAZOLE I nactive BACTRIM DS 800-160 MG ORAL TABLET 1 pill by mouth twice claudio y, for UTI BACTRIM DS 800-160 MG ORAL TABLET 967867 SULFAMETHOXAZOLE-TRIMETHOPRIM Inactive Advance Directives Directive Description Start [...] 11 .0-15.0 platelet count 157 THOUSAND/UL 10*3/mm3 053-855 9053/04/20 mean platelet volume 8.9 fL 7.5-12.5 Lab Report: CEA - Serology carcinoembryonic antigen 0.9 ng/mL Encounters Code Encounter Date Provider Facility CPT-80173 Level 2 Est. Patient 14:27:16 IRRIGATOR HEAD Kylie Lund [facility] CPT-93749 Level 3 Est. Patient 17:54:48 CDT Kylie Lund [facility] CPT-29498 Level 3 Est. Patient 16:26:30 CDT Kina blackmon [facility] CPT-17752 Level 3 New Patient 16:22:01 IRRIGATOR HEAD Adam Yates MD [facility] CPT-74073 Level 4 Est. Patient 17:00:48 CDT Kylie Lund [facility] CPT-20707 Level 3 Est. Patient 13:15:[address] [facility] [place] CPT-79319 Level 3 Est. Patient 09:10:[address] [facility] [place] CPT-91462 Level 4 Est. Patient 12:08:30 IRRIGATOR HEAD Hope cohn MD PhD [facility] CPT-42997 Level 4 Est. Patient 19:08:42 IRRIGATOR HEAD Hope cohn MD PhD [facility] CPT-81221 Level 4 Est. Patient 20:04:51 CDT Hope cohn MD PhD [facility] CPT-41454 Level 3 New Patient 01:46:11 IRRIGATOR HEAD Hope landers MD PhD [facility] Procedures Code Procedure Name Date Entry Date Standard Desc ription CPT-56799 First Vx - Ix admin for Medicare patients 11:19:30 CDT CPT-92168 Fluzone High-Dose Intramuscular Suspension 12/07 11:19:30 CDT CPT-J0897 Prolia 60 mg 14:55:42 CDT CPT-05602 Abx/Therapy Injection 14:55:42 CDT CPT-31177 Bone Density - XRAY USE ONLY 10:27:12 CDT 2 CPT-G0439 [facility] Annual Wellness Exam 17:54:53 CDT CPT-44661 Foot, left, comp min 3V - XRAY USE ONLY 12:22:49 CDT CPT-G0009 Administration of Pneumococcal Vaccine 3 12:18:00 CDT CPT-64273 Pneumovax 23 Injection Injectable 25 MCG /0.5ML 12:18:00 CDT CPT-J0897 Prolia 60 mg 14:14:16 IRRIGATOR HEAD CPT-91475 Abx/Therapy Injection 14:14:15 IRRIGATOR HEAD CPT-02531 Lipid - LAB USE ONLY 10:01:52 IRRIGATOR HEAD 2 CPT-43890 Calcium - LAB USE ONLY 10:01:51 IRRIGATOR HEAD CPT-11019 Venipuncture Draw Fee 10:01:51 IRRIGATOR HEAD CPT-LR Lesion Removal 16:22:01 IRRIGATOR HEAD CPT-84857 TSH - LAB USE ONLY 14:26:02 CDT CPT-15560 CMP - LAB USE ONLY 14:26:01 CDT CPT-42450 CBC with Diff - LAB USE ONLY 14:26:01 CDT 2 CPT-89799 Venipuncture Draw Fee 14:26:01 CDT CPT-63244 First Vx - Ix admin for Medicare patients 13:27:08 CDT CPT-31034 Fluzone High-Dose Intramuscular Suspension 11/26 13:27:08 CDT CPT-G0438 Initial Annual Wellness Exam 14:19:57 CD T CPT-G0009 Administration of Pneumococcal Vaccine 9 11:36:25 CDT CPT-63280 Prevnar 13 Intramuscular Suspension 1 1:36:25 CDT CPT-33289 Prevnar 13 Intramuscular Suspension 1 0:40:58 CDT CPT-J0897 Prolia 60 mg 10:37:16 CDT CPT-12418 Abx/Therapy Injection 10:37:16 CDT CPT-J0897 Prolia 60 mg 16:09:34 IRRIGATOR HEAD CPT-J0897 Prolia 60 mg 11:10:35 IRRIGATOR HEAD CPT-14142 Abx/Therapy Injection 11:10:35 IRRIGATOR HEAD CPT-000 Give Appropriate Flu Vaccine 17:01:15 IRRIGATOR HEAD 2 CPT-56918 Fluzone High Dose (65+) 15:03:08 IRRIGATOR HEAD 02/15 CPT-23629 Immunization Single Admin 15:03:08 IRRIGATOR HEAD 2014 CPT-OV Office Visit 15:58:06 CDT CPT-J0897 Prolia 60 mg 08:45:38 CDT CPT-51319 Abx/Therapy Injection 08:45:38 CDT CPT-J3420 Vitamin B12 1000mcg (Cyanocobalamin) 09:26:20 IRRIGATOR HEAD CPT-13894 Abx/Therapy Injection 09:26:20 IRRIGATOR HEAD CPT-J3420 Vitamin B12 1000mcg (Cyanocobalamin) 09:44:40 IRRIGATOR HEAD CPT-26227 Abx/Therapy Injection 09:44:40 IRRIGATOR HEAD CPT-J3420 Vitamin B12 1000mcg (Cyanocobalamin) 09:15:54 IRRIGATOR HEAD CPT-96794 Abx/Therapy Injection 09:15:54 IRRIGATOR HEAD CPT-J3420 Vitamin B12 1000mcg (Cyanocobalamin) 09:46:44 IRRIGATOR HEAD CPT-27392 Abx/Therapy Injection 09:46:44 IRRIGATOR HEAD CPT-J3420 Vitamin B12 1000mcg (Cyanocobalamin) 09:47:34 IRRIGATOR HEAD CPT-64448 Abx/Therapy Injection 09:47:34 IRRIGATOR HEAD CPT-J3420 Vitamin B12 1000mcg (Cyanocobalamin) 14:35:50 IRRIGATOR HEAD CPT-J3420 Vitamin B12 1000mcg (Cyanocobalamin) 09:25:05 IRRIGATOR HEAD CPT-69990 Abx/Therapy Injection 09:25:05 IRRIGATOR HEAD CPT-G0008 Administration of Influenza Virus Vaccine 13:36:47 CDT CPT-05931 Fluzone High-Dose Intramuscular Suspension 11/15 13:36:47 CDT CPT-J0897 Prolia 60 mg 08:50:41 CDT CPT-29900 Abx/Therapy Injection 08:50:41 CDT CPT-77895 Bone Density 12:06:12 CDT CPT-31705 Bone Density 08:54:40 CDT CPT-OV Office Visit 15:37:02 CDT CPT-80515 Postop F/U Visit 15:47:49 CDT CPT-40960 Postop F/U Visit 15:21:02 CDT CPT-[facility] Transitional Care Mgmt-High 07:52:27 CDT 20 20/06/01 CPT-66216 Venipuncture Draw Fee 13:51:18 CDT CPT-50364 Venipuncture Draw Fee 10:14:55 IRRIGATOR HEAD CPT-16251 Venipuncture Draw Fee 13:39:45 IRRIGATOR HEAD CPT-OV Office Visit 15:11:22 IRRIGATOR HEAD CPT-57136 Venipuncture Draw Fee 09:20:49 IRRIGATOR HEAD CPT-70325 Venipuncture Draw Fee 16:52:15 IRRIGATOR HEAD CPT-97120 Venipuncture Draw Fee 10:37:24 IRRIGATOR HEAD CPT-74668 Venipuncture Draw Fee 08:21:21 IRRIGATOR HEAD CPT-57263 Venipuncture Draw Fee 08:30:20 IRRIGATOR HEAD CPT-37675 Venipuncture Draw Fee 14:53:21 IRRIGATOR HEAD CPT-98944 Venipuncture Draw Fee 09:40:56 IRRIGATOR HEAD CPT-00186 Venipuncture Draw Fee 10:30:47 IRRIGATOR HEAD CPT-49056 Venipuncture Draw Fee 10:46:17 IRRIGATOR HEAD CPT-81397 Venipuncture Draw Fee 11:12:45 IRRIGATOR HEAD CPT-94012 Venipuncture Draw Fee 09:53:33 IRRIGATOR HEAD CPT-76160 Venipuncture Draw Fee 11:53:51 IRRIGATOR HEAD CPT-08853 Venipuncture Draw Fee 10:33:50 IRRIGATOR HEAD CPT-38079 Venipuncture Draw Fee 10:05:01 IRRIGATOR HEAD CPT-33699 Venipuncture Draw Fee 14:32:52 IRRIGATOR HEAD CPT-43215 Venipuncture Draw Fee 09:46:13 IRRIGATOR HEAD CPT-57078 Venipuncture Draw Fee 11:34:27 IRRIGATOR HEAD CPT-76600 Venipuncture Draw Fee 13:17:16 IRRIGATOR HEAD CPT-82854 Venipuncture Draw Fee 12:05:39 CDT CPT-53208 Venipuncture Draw Fee 12:49:12 CDT CPT-74662 Venipuncture Draw Fee 12:37:18 CDT CPT-46951 Venipuncture Draw Fee 10:57:11 CDT CPT-69894 Venipuncture Draw Fee 13:47:40 CDT CPT-57117 Venipuncture Draw Fee 10:02:17 CDT CPT-10771 TB Tubersol 17:32:32 CDT CPT-OV Office Visit 16:21:53 CDT CPT-OV Office Visit 15:49:22 CDT CPT-OV Office Visit 17:16:31 CDT CPT-OV Office Visit 10:43:31 CDT
--- OUTSIDE RECORDS SUMMARY | 2019-02-09 12:55 | XMS REPORT | Clinical Summary ---
Author Author Renaldo, Florecita Munoz Organization [facility] [employer] Address Unknown Phone Unavailable Allergies, Adverse [...] Hyperpotassemia GERD 530.81 Resolved Kylie Yokum MANAGER INTERVENTIONAL Esophageal reflux Health maintenance exam V70.0 Resolved Adolfo Yates MD Routine general medical examination at a health care facility Anemia 285.9 Resolved Kylie Holt MANAGER INTERVENTIONAL Anemia, unspecified Personal history of malignant neoplasm [...] cyst, scalp 706.2 Resolved Kylie Holt MANAGER INTERVENTIONAL Sebaceous cyst Cervical lymphadenopathy, anterior, left 785.6 Resolv ed Kylie Holt MANAGER INTERVENTIONAL Enlargement of lymph nodes Need for prophylactic vaccination and inoculation against in fluenza V04.81 Resolved Adam Yates MD Need for prophylactic vaccination and inoculation against influenza Preventive health care V70.0 Active Kylie Holt MANAGER INTERVENTIONAL Routine general medical examination at a health care facility Thyroid nodule, left 241.0 Active Kylie oHlt A PRN Nontoxic uninodular goiter Screening mammogram V76.12 Active Kylie Holt AP RN Other screening mammogram Mandy 706.2 Active Adam Yates MD Sebaceous cyst Colon cancer, ascending 153.6 Active Kelsy F aux RMA Malignant neoplasm of ascending colon Foot pain, left 729.5 Active Sulema Naff MATERIAL CONTROL MANAGER Pain in limb ABDOMINAL PAIN, RIGHT LOWER QUADRANT ICD-789.03 Inactive Kina Joshua MANAGER INTERVENTIONAL ADENOCARCINOMA, COLON, 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 Dick Yates MD ABDOMINAL PAIN, GENERALIZED ICD-789.07 Inactive Hope Benavidez MD PhD FEVER UNSPECIFIED ICD-780.60 Inactive Hope cohn MD PhD UNSPECIFIED VENOUS INSUFFICIENCY ICD-459.81 [place] ctive Adam Yates MD ADENOCARCINOMA, 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 Inac abdelrahman Benavidez MD PhD Hyperkalemia ICD-276.7 Inactive Hope Benavidez MD PhD GERD ICD-530.81 Inactive Kylie Yokum MANAGER INTERVENTIONAL 2015 Health maintenance exam ICD-V70.0 Bam Yates MD Anemia ICD-285.9 Inactive Kylie Yokum MANAGER INTERVENTIONAL 07/24 Weakness ICD-780.79 Inactive Hope Benavidez MD [...] scalp ICD-706.2 Inactive Tracy hi Yokum MANAGER INTERVENTIONAL Cervical lymphadenopathy, anterior, left ICD-785.6 Inactive Kylie Yokum MANAGER INTERVENTIONAL Need for prophylactic vaccination and inoculation against in fluenza ICD-V04.81 Inactive Adam Yates MD Medication List Medication Instructions Start Date Stop Date Generic Name NDC Status Provider Patient Instruction COQ10 100 MG ORAL CAPS 1 daily COENZYME Q10 136066266 20 Active Fay VIRI AlbertsLisa Active VITAMIN D3 2000 UNIT ORAL CAPS Melaleuca-One daily CHOLECALCIFEROL 68522416222 Active Kylie Lundum MANAGER INTERVENTIONAL Active PROBIOTIC DAILY ORAL CAPS Take one daily PROBIOTIC PRODUCT 07236048155 Active Kylie Lundum MANAGER INTERVENTIONAL Active IRON 325 (65 FE) MG TABS 1 every other day FERR OUS SULFATE 95213940985 No Longer Active Kylie Lundum MANAGER INTERVENTIONAL Active FLORANEX PACK 1 pack three times daily, for bowel health LACTOBACILLUS 12850346465 No Longer Active Kylie Holt APRN Active LOMOTIL 2.5-0.025 MG TABS 1 tab by mouth prn 4 DIPHENOXYLATE-ATROPINE 47385498368 No Longer Active Kylie Lundum MANAGER INTERVENTIONAL Active MAGNESIUM GLUCONATE 250 MG TABS 1 tab tid 4 MAGNESIUM GLUCONATE 64766850329 No Longer Active Kylie Lundum MANAGER INTERVENTIONAL Active CYANOCOBALAMIN 1000 MCG/ML INJ SOLN 1 injection every 2 weeks 20 20/01/03 CYANOCOBALAMIN 12766475994 No Longer Active Kylie Lundum MANAGER INTERVENTIONAL Active ATENOLOL 25 MG ORAL TABS 1/2 pill by mouth daily, for headac hes, blood pressure ATENOLOL 35452413797 Active Kylie Yokum MANAGER INTERVENTIONAL Active PROPRANOLOL HCL 80 MG TABS 1 tab tue. and thur. 04/10 PROPRANOLOL HCL 37412565185 No Longer Active Hope Benavidez MD PhD A ctive VITAMIN D3 4000 IU 1 tab 3 times daily VITAMIN D3 4000 IU No Longer Active Hope Benavidez MD PhD Active BACTRIM DS 800-160 MG TABS 1 pill by mouth twice daily, for UTI SULFAMETHOXAZOLE-TRIMETHOPRIM 37020629403 No Longer Active Lisa Benavidez MD PhD Active PROLIA 60 MG/ML SOLN 1 shot every 6 months for osteoprosis DENOSUMAB 38657854287 Active Hope Benavidez MD PhD Active CALCIUM + D + K 750-500-40 MG-UNT-MCG TABS 1 tab by mouth tw ice daily CALCIUM-VITAMIN D-VITAMIN K 21788577727 Active Hope landers MD PhD Active DAILY VALUE MULTIVITAMIN TABS 1 tab by mouth twice daily MULTIPLE VITAMIN 38946469004 Active Hope Benavidez MD PhD Active FISH OIL 306 MG CAPS 1 tab by mouth three times daily OMEGA-3 FATTY ACIDS 91263913213 Active Hope Benavidez MD PhD Active LUTEIN 10 MG TABS 1 tab daily LUTEIN 75276741263 Act cash Hope Benavidez MD PhD Active TRIAMTERENE-HCTZ 37.5-25 MG TABS 1 tab by mouth daily TRIAMTERENE-HCTZ 97110913503 Active Kylie Yanet REYES Active CYCLOBENZAPRINE HCL 10 MG TABS 1 tablet by mouth three times daily as needed for headaches CYCLOBENZAPRINE HCL 24759393489 No Longe r Active Adam Yates MD Active OMEPRAZOLE 20 MG CPDR 1 tablet by mouth daily for GERD OMEPRAZOLE 54215547257 No Longer Active Adam Yates MD A ctive ZOFRAN 8 MG TABS 1 tab by mouth every 12 hours prn 201 05/16/09 ONDANSETRON HCL 42005758665 No Longer Active Adam Yates MD Active PHENADOZ 25 MG SUPP 1 every 4 hrs. PRN PROMETHA ZINE HCL 94640675883 No Longer Active Adam Yates MD Active POTASSIUM CHLORIDE 20 MEQ PACK by mouth twice a day prn POTASSIUM CHLORIDE 58935573725 No Longer Active Adam Yates MD Active PROMETHAZINE HCL 25 MG TABS 1 Q. 4 hr. PRN PROM ETHAZINE HCL 92103029508 No Longer Active Adam Yates MD Active INNOPRAN XL 120 MG [id number] Take one by mouth daily 2 PROPRANOLOL HCL SR BEADS 50842685991 No Longer Active Adam Yates MD A ctive FLAGYL 500 MG TABS 1 pill by mouth three times daily, for diarrh ea METRONIDAZOLE 52931257636 No Longer Active Hope Benavidez MD PhD Active DYAZIDE 37.5-25 MG CAPS 1 qd TRIAMTERENE-HC TZ 18611507544 No Longer Active Hope Benavidez MD PhD Active PROZAC 20 MG CAPS 1 q d FLUOXETINE HCL 38277 334350 No Longer Active Hope Benavidez MD PhD Active SIMVASTATIN 40 MG TABS 1 qd SIMVASTATIN 004 66123811 No Longer Active Adam Yates MD Active MELOXICAM 15 MG TABS 1 qd MELOXICAM 6656646 3040 No Longer Active Adam Yates MD Active IMODIUM A-D 2 MG TABS 2 onset at diarrhea and prn. LOPERAMIDE HCL 82727271656 Active Hope Benavidez MD PhD Active EXCEDRIN EXTRA STRENGTH 250-250-65 MG TABS 1-2 q6h PRN headache 201 04/16/21 [id number] 48047818924 Active Hope Benavidez MD PhD Active FLAGYL 500 MG TABS 1 qid METRONIDAZOLE 93952 074349 No Longer Active Adam Yates MD Active LEVAQUIN 750 MG TABS 1 qd LEVOFLOXACIN 5486 7327594 No Longer Active Adam Yates MD Active ADULT ASPIRIN LOW STRENGTH 81 MG TBDP 1 qd A SPIRIN 61336321669 Active Hope Benavidez MD PhD Active LEVAQUIN 750 MG TABS 1 qd LEVAQUIN 750 MG T ABS 477667 LEVOFLOXACIN Inactive FLAGYL 500 MG TABS 1 qid FLAGYL 500 MG TABS 825025 METRONIDAZOLE Inactive MELOXICAM 15 MG TABS 1 qd MELOXICAM 15 MG T ABS 843049 MELOXICAM Inactive SIMVASTATIN 40 MG TABS 1 qd SIMVASTATIN 40 MG TABS 033564 SIMVASTATIN Inactive PROZAC 20 MG CAPS 1 q d PROZAC 20 MG CAPS 31 0385 FLUOXETINE HCL Inactive DYAZIDE 37.5-25 MG CAPS 1 qd DYAZIDE 37.5 -25 MG CAPS 473257 TRIAMTERENE-HCTZ Inactive INNOPRAN XL 120 MG [id number] Take one by mouth daily 2 INNOPRAN XL 120 MG [id number] PROPRANOLOL HCL SR BEADS Inactive PROMETHAZINE HCL 25 MG TABS 1 Q. 4 hr. PRN PROMETHAZINE HCL 25 MG TABS 600242 PROMETHAZINE HCL Inactive POTASSIUM CHLORIDE 20 MEQ PACK by mouth twice a day prn POTASSIUM CHLORIDE 20 MEQ PACK 2162420 POTASSIUM CHLORIDE Inactive PHENADOZ 25 MG SUPP 1 every 4 hrs. PRN PHENADOZ 2 5 MG SUPP 190930 PROMETHAZINE HCL Inactive ZOFRAN 8 MG TABS 1 tab by mouth every 12 hours prn 201 05/16/09 ZOFRAN 8 MG TABS 543080 ONDANSETRON HCL Inactive OMEPRAZOLE 20 MG CPDR 1 tablet by mouth daily for GERD OMEPRAZOLE 20 MG CPDR 984154 OMEPRAZOLE Inactive CYCLOBENZAPRINE HCL 10 MG TABS 1 tablet by mouth three times daily as needed for headaches CYCLOBENZAPRINE HCL 10 MG TABS 748260 CYCLOBENZAPRINE HCL Inactive VITAMIN D3 4000 IU 1 tab 3 times daily VITAMIN D3 4000 IU Inactive PROPRANOLOL HCL 80 MG TABS 1 tab tue. and thur. 04/10 PROPRANOLOL HCL 80 MG TABS 375451 PROPRANOLOL HCL Inactive CYANOCOBALAMIN 1000 MCG/ML INJ SOLN 1 injection every 2 weeks 20 20/01/03 CYANOCOBALAMIN 1000 MCG/ML INJ SOLN 024217 CYANOCOBALAM IN Inactive MAGNESIUM GLUCONATE 250 MG TABS 1 tab tid 4 MAGNESIUM GLUCONATE 250 MG TABS 177170 MAGNESIUM GLUCONATE Inactive LOMOTIL 2.5-0.025 MG TABS 1 tab by mouth prn 4 LOMOTIL 2.5- 0.025 MG TABS 9126158 DIPHENOXYLATE-ATROPINE Inactive FLORANEX PACK 1 pack three times daily, for bowel health FLORANEX PACK LACTOBACILLUS Inactive IRON 325 (65 FE) MG TABS 1 every other day IRON 325 (65 FE) MG TABS 584001 FERROUS SULFATE Inactive FLAGYL 500 MG TABS 1 pill by mouth three times daily, for diarrh ea FLAGYL 500 MG TABS 625235 METRONIDAZOLE Inactive BACTRIM DS 800-160 MG TABS 1 pill by mouth twice daily, for UTI BACTRIM DS 800-160 MG TABS 674898 SULFAMETHOXAZOLE-TRIM ETHOPRIM Inactive Advance Directives Directive Description [...] 11 .0-15.0 platelet count 157 THOUSAND/UL 10*3/mm3 432-062 7928/04/20 mean platelet volume 8.9 fL 7.5-12.5 Lab Report: CBC W/DIFF, Comp. Metabolic Panel, Thyroid Stimulating Hormo ... - Chemistry sodium, serum 139 mmol/L 278-944 0621/10/20 carbon dioxide, venous blood 32.2 mmol/L 21.0-32 [...] - Chemi stry cholesterol, serum 200 mg/dL 425-035 5328/11/22 triglyceride, serum, fasting 129 mg/dL 30-200 HDL cholesterol, serum 56 mg/dL 32-96 LDL cholesterol, serum 118 mg/dL 0-130 calcium, serum 9.0 mg/dL 8.5-10.1 Lab Report: MicroAlb Random w/creat/6517 - Urinalysis microalbumin/total urine volume 8 mg/L Units converted. See lab report for original value. microalbumin/creatinine ratio, urine 15 MCG/MG CREAT mg/L <30 Encounters Code Encounter Date Provider Facility CPT-43895 Level 3 Est. Patient 16:26:30 CDT Kina blackmon [facility] CPT-76924 Level 3 New Patient 16:22:01 SODA DRIER FEEDER Adam Yates MD [facility] CPT-97222 Level 4 Est. Patient 17:00:48 CDT Kylie Lund [facility] CPT-63513 Level 3 Est. Patient 13:15:54 CDT Kylie Lund [facility] CPT-61399 Level 3 Est. Patient 09:10:11 CDT Kylie Lund [facility] CPT-84776 Level 4 Est. Patient 12:08:30 SODA DRIER FEEDER Hope cohn MD [facility] CPT-01650 Level 4 Est. Patient 19:08:42 SODA DRIER FEEDER Hope cohn MD PhD [facility] CPT-62742 Level 4 Est. Patient 20:04:51 CDT Hope cohn MD PhD [facility] CPT-00770 Level 3 New Patient 01:46:11 [employer]RIER FEEDER Hope landers MD PhD [facility] Procedures Code Procedure Name Date Entry Date Standard Desc ription CPT-01145 Foot, left, comp min 3V - XRAY USE ONLY 12:22:49 CDT CPT-G0009 Administration of Pneumococcal Vaccine 3 12:18:00 CDT CPT-70990 Pneumovax 23 Injection Injectable 25 MCG /0.5ML 12:18:00 CDT CPT-J0897 Prolia 60 mg 14:14:16 [employer]A DRIER FEEDER CPT-02145 Abx/Therapy Injection 14:14:15 [employer]A DRIER FEEDER CPT-36439 Lipid - LAB USE ONLY 10:01:52 [employer] D[employer]ER FEEDER 2 CPT-04593 Calcium - LAB USE ONLY 10:01:51 [employer]ER FEEDER CPT-31656 Venipuncture Draw Fee 10:01:51 [employer]EDER CPT-LR Lesion Removal 16:22:01 [employer] FEEDER CPT-64553 TSH - LAB USE ONLY 14:26:02 CDT CPT-30132 CMP - LAB USE ONLY 14:26:01 CDT CPT-04244 CBC with Diff - LAB USE ONLY 14:26:01 CDT 2 CPT-96986 Venipuncture Draw Fee 14:26:01 CDT CPT-50977 First Vx - Ix admin for Medicare patients 13:27:08 CDT CPT-35882 Fluzone High-Dose Intramuscular Suspension 11/26 13:27:08 CDT CPT-G0438 Initial Annual Wellness Exam 14:19:57 CD T CPT-G0009 Administration of Pneumococcal Vaccine 9 11:36:25 CDT CPT-91855 Prevnar 13 Intramuscular Suspension 1 1:36:25 CDT CPT-23063 Prevnar 13 Intramuscular Suspension 1 0:40:58 CDT CPT-J0897 Prolia 60 mg 10:37:16 CDT CPT-44181 Abx/Therapy Injection 10:37:16 CDT CPT-J0897 Prolia 60 mg 16:09:34 [employer]A DRIER FEEDER CPT-J0897 Prolia 60 mg 11:10:35 [employer]ER FEEDER CPT-33358 Abx/Therapy Injection 11:10:35 [employer]A D[employer]ER FEEDER CPT-000 Give Appropriate Flu Vaccine 17:01:15 [employer]A DRIER FEEDER 2 CPT-67356 Fluzone High Dose (65+) 15:03:08 [employer]A DRIER FEEDER 02/15 CPT-75011 Immunization Single Admin 15:03:08 [employer]A DRIER FEEDER 2014 CPT-OV Office Visit 15:58:06 CDT CPT-J0897 Prolia 60 mg 08:45:38 CDT CPT-08754 Abx/Therapy Injection 08:45:38 CDT CPT-J3420 Vitamin B12 1000mcg (Cyanocobalamin) 09:26:20 SODA DRIER FEEDER CPT-24548 Abx/Therapy Injection 09:26:20 SODA DRIER FEEDER CPT-J3420 Vitamin B12 1000mcg (Cyanocobalamin) 09:44:40 SODA DRIER FEEDER CPT-02517 Abx/Therapy Injection 09:44:40 SODA DRIER FEEDER CPT-J3420 Vitamin B12 1000mcg (Cyanocobalamin) 09:15:54 SODA DRIER FEEDER CPT-21060 Abx/Therapy Injection 09:15:54 SODA DRIER FEEDER CPT-J3420 Vitamin B12 1000mcg (Cyanocobalamin) 09:46:44 SODA DRIER FEEDER CPT-52007 Abx/Therapy Injection 09:46:44 SODA DRIER FEEDER CPT-J3420 Vitamin B12 1000mcg (Cyanocobalamin) 09:47:34 SODA DRIER FEEDER CPT-95057 Abx/Therapy Injection 09:47:34 SODA DRIER FEEDER CPT-J3420 Vitamin B12 1000mcg (Cyanocobalamin) 14:35:50 SODA DRIER FEEDER CPT-J3420 Vitamin B12 1000mcg (Cyanocobalamin) 09:25:05 SODA DRIER FEEDER CPT-11162 Abx/Therapy Injection 09:25:05 SODA DRIER FEEDER CPT-G0008 Administration of Influenza Virus Vaccine 13:36:47 CDT CPT-42560 Fluzone High-Dose Intramuscular Suspension 11/15 13:36:47 CDT CPT-J0897 Prolia 60 mg 08:50:41 CDT CPT-18912 Abx/Therapy Injection 08:50:41 CDT CPT-46488 Bone Density 12:06:12 CDT CPT-45068 Bone Density 08:54:40 CDT CPT-OV Office Visit 15:37:02 CDT CPT-48525 Postop F/U Visit 15:47:49 CDT CPT-87176 Postop F/U Visit 15:21:02 CDT CPT-TCMH Transitional Care Mgmt-High 07:52:27 CDT 20 20/06/01 CPT-43994 Venipuncture Draw Fee 13:51:18 CDT CPT-21039 Venipuncture Draw Fee 10:14:55 [employer]ER FEEDER CPT-36529 Venipuncture Draw Fee 13:39:45 [employer]A D[employer]ER FEEDER CPT-OV Office Visit 15:11:22 SODA DRIER FEEDER CPT-17493 Venipuncture Draw Fee 09:20:49 SODA DRIER FEEDER CPT-00711 Venipuncture Draw Fee 16:52:15 SODA DRIER FEEDER CPT-77217 Venipuncture Draw Fee 10:37:24 SODA DRIER FEEDER CPT-94702 Venipuncture Draw Fee 08:21:21 SODA DRIER FEEDER CPT-50554 Venipuncture Draw Fee 08:30:20 SODA DRIER FEEDER CPT-68026 Venipuncture Draw Fee 14:53:21 SODA DRIER FEEDER CPT-94415 Venipuncture Draw Fee 09:40:56 [employer]A DRIER FEEDER CPT-06049 Venipuncture Draw Fee 10:30:47 [employer]A DRIER FEEDER CPT-00427 Venipuncture Draw Fee 10:46:17 [employer]A D[employer]ER FEEDER CPT-02061 Venipuncture Draw Fee 11:12:45 [employer]A DRIER FEEDER CPT-19538 Venipuncture Draw Fee 09:53:33 SODA DRIER FEEDER CPT-30755 Venipuncture Draw Fee 11:53:51 [employer]A DRIER FEEDER CPT-30179 Venipuncture Draw Fee 10:33:50 [employer]A DRIER FEEDER CPT-19086 Venipuncture Draw Fee 10:05:01 [employer]A DRIER FEEDER CPT-91550 Venipuncture Draw Fee 14:32:52 SODA DRIER FEEDER CPT-06541 Venipuncture Draw Fee 09:46:13 SODA DRIER FEEDER CPT-65735 Venipuncture Draw Fee 11:34:27 [employer]A D[employer]ER FEEDER CPT-84087 Venipuncture Draw Fee 13:17:16 [employer] D[employer]ER FEEDER CPT-17924 Venipuncture Draw Fee 12:05:39 CDT CPT-11750 Venipuncture Draw Fee 12:49:12 CDT CPT-08412 Venipuncture Draw Fee 12:37:18 CDT CPT-64084 Venipuncture Draw Fee 10:57:11 CDT CPT-73386 Venipuncture Draw Fee 13:47:40 CDT CPT-02522 Venipuncture Draw Fee 10:02:17 CDT CPT-01055 TB Tubersol 17:32:32 CDT CPT-OV Office Visit 16:21:53 CDT CPT-OV Office Visit 15:49:22 CDT CPT-OV Office Visit 17:16:31 CDT CPT-OV Office Visit 10:43:31 CDT
--- OUTSIDE RECORDS SUMMARY | 2019-02-09 12:55 | XMS REPORT | Clinical Summary ---
Author Author Renaldo, Florecita Munoz Organization [facility] [employer] Address Unknown Phone Unavailable Allergies, Adverse Reactions, [...] PhD Hyperpotassemia GERD 530.81 Resolved Kylie Yokum BEAUTY OPERATOR APPRENTICE Esophageal reflux Health maintenance exam V70.0 Resolved Adolfo Yates MD Routine general medical examination at a health care facility Anemia 285.9 Resolved Kylie Holt BEAUTY OPERATOR APPRENTICE Anemia, unspecified Personal history of malignant neoplasm of large intestine V10.05 Active Adam Yates MD Personal history of malignant neoplasm of large intestine Hypomagnesemia 275.2 Resolved Kylie Holt BEAUTY OPERATOR APPRENTICE Disorders of magnesium metabolism Weakness 780.79 [...] Sebaceous cyst, scalp 706.2 Resolved Kylie Yokum BEAUTY OPERATOR APPRENTICE Sebaceous cyst Cervical lymphadenopathy, anterior, left 785.6 Resolv ed Kylie Yokum BEAUTY OPERATOR APPRENTICE Enlargement of lymph nodes Need for prophylactic vaccination and inoculation against in fluenza V04.81 Resolved Adam Yates MD Need for prophylactic vaccination and inoculation against influenza Preventive health care V70.0 Active Kylie Yokum BEAUTY OPERATOR APPRENTICE Routine general medical examination at a health care facility Thyroid nodule, left 241.0 Active Kylie Yokum A PRN Nontoxic uninodular goiter Screening mammogram V76.12 Active Kylie Yokum AP RN Other screening mammogram Mandy 706.2 Resolved Kylie Yokum BEAUTY OPERATOR APPRENTICE Sebaceous cyst Colon cancer, ascending 153.6 Resolved Kylie Yok um BEAUTY OPERATOR APPRENTICE Malignant neoplasm of ascending colon Foot pain, left 729.5 Active Sulema Naff APARTMENT LEASING SPECIALIST Pain in limb Splinter 919.6 Active Kylie Yokum BEAUTY OPERATOR APPRENTICE Superficial foreign body (splinter) of other, multiple, and unspecified sites, without major open wound and without mention of infection Rash 782.1 Active Kylie Yokum BEAUTY OPERATOR APPRENTICE R aurora and other nonspecific skin eruption ABDOMINAL PAIN, RIGHT LOWER QUADRANT ICD-789.03 Inactive Kina Joshua BEAUTY OPERATOR APPRENTICE ADENOCARCINOMA, COLON, 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 Dick Yates MD ABDOMINAL PAIN, GENERALIZED ICD-789.07 Inactive Hope Benavidez MD PhD FEVER UNSPECIFIED ICD-780.60 Inactive Hope cohn MD PhD UNSPECIFIED VENOUS INSUFFICIENCY ICD-459.81 [place] ctive Adam Yates MD ADENOCARCINOMA, 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 Inac tive Hope Benavidez MD PhD Hyperkalemia ICD-276.7 Inactive Hope Benavidez MD PhD GERD ICD-530.81 Inactive Kylie Yanet BEAUTY OPERATOR APPRENTICE 2015 Health maintenance exam ICD-V70.0 Bam Yates MD Anemia ICD-285.9 Inactive Kylie Holt BEAUTY OPERATOR APPRENTICE 07/24 Hypomagnesemia ICD-275.2 Inactive Kylie Yokum BEAUTY OPERATOR APPRENTICE Weakness ICD-780.79 Inactive Hope Benavidez MD [...] Sebaceous cyst, scalp ICD-706.2 Inactive Tracy Holt BEAUTY OPERATOR APPRENTICE Cervical lymphadenopathy, anterior, left ICD-785.6 Inactive Kylie Holt BEAUTY OPERATOR APPRENTICE Need for prophylactic vaccination and inoculation against in fluenza ICD-V04.81 Inactive Adam Yates MD Mandy ICD-706.2 Inactive Kylie Holt BEAUTY OPERATOR APPRENTICE 07/20 Colon cancer, ascending ICD-153.6 Inactive Gabbi Escalonagabbioliver BEAUTY OPERATOR APPRENTICE Medication List Medication Instructions Start Date Stop Date Generic Name ND Status Provider Patient Instruction VOLTAREN 1 % TRANSDERMAL GEL apply q 6-8 hour to left arm as needed for pain DICLOFENAC SODIUM 04425138207 Active Kylie Holt APRN Active COQ10 100 MG ORAL CAPSULE 1 daily COENZYME Q10 583172 55062 Active LETY Nation Active VITAMIN D3 2000 UNIT ORAL CAPSULE Melaleuca-One daily CHOLECALCIFEROL 18092715858 Active Kylie Holt APRN Active PROBIOTIC DAILY ORAL CAPSULE Take one daily PROBIO TIC PRODUCT 83574849903 Active Kylie Holt APRN Active IRON 325 (65 Fe) MG ORAL TABLET 1 every other day FERROUS SULFATE 70758896424 No Longer Active Kylie Holt AMY Active FLORANEX ORAL PACKET 1 pack three times daily, for bowel health LACTOBACILLUS 51622136010 No Longer Active Kylie Lundum BEAUTY OPERATOR APPRENTICE Active LOMOTIL 2.5-0.025 MG ORAL TABLET 1 tab by mouth prn 23/10/23 DIPHENOXYLATE-ATROPINE 34915536257 No Longer Active Kylie Lundum BEAUTY OPERATOR APPRENTICE Active MAGNESIUM GLUCONATE 250 MG ORAL TABLET 1 tab tid 23/10/23 MAGNESIUM GLUCONATE 64020253776 No Longer Active Kylie Lundum BEAUTY OPERATOR APPRENTICE Active CYANOCOBALAMIN 1000 MCG/ML INJECTION SOLUTION 1 injection ev ruben 2 weeks CYANOCOBALAMIN 24637377549 No Longer Active Kylie boyd BEAUTY OPERATOR APPRENTICE Active ATENOLOL 25 MG ORAL TABLET 1/2 pill by mouth daily, fo r headaches, blood pressure ATENOLOL 92717770653 Active Kylie Holt BEAUTY OPERATOR APPRENTICE Active PROPRANOLOL HCL 80 MG ORAL TABLET 1 tab tue. and thur. PROPRANOLOL HCL 91637490853 No Longer Active Hope Benavidez MD PhD A ctive VITAMIN D3 4000 IU 1 tab 3 times daily VITAMIN D3 4000 IU No Longer Active Hoep Benavidez MD PhD Active BACTRIM DS 800-160 MG ORAL TABLET 1 pill by mouth twice claudio y, for UTI SULFAMETHOXAZOLE-TRIMETHOPRIM 63493672330 No Longer Active Hope Benavidez MD PhD Active PROLIA 60 MG/ML SUBCUTANEOUS SOLUTION 1 shot every 6 months for osteoprosis DENOSUMAB 20386856101 Active Hope Benavidez MD PhD Active CALCIUM + D + K 750-500-40 MG-UNT-MCG ORAL TABLET 1 tab by m [facility] twice daily CALCIUM-VITAMIN D-VITAMIN K 48591799415 Active Hope valdez MD PhD Active DAILY VALUE MULTIVITAMIN ORAL TABLET 1 tab by mouth twice daily 201 05/16/14 MULTIPLE VITAMIN 46564365955 Active Hope Benavidez MD PhD Acti ve FISH OIL 306 MG CAPS 1 tab by mouth three times daily OMEGA-3 FATTY ACIDS 57821467547 Active Hope Benavidez MD PhD Active LUTEIN 10 MG ORAL TABLET 1 tab daily LUTEIN 21227672 408 Active Hope Benavidez MD PhD Active TRIAMTERENE-HCTZ 37.5-25 MG ORAL TABLET 1 tab by mouth daily 10/22 TRIAMTERENE-HCTZ 94856737933 Active LETY Rossi CYCLOBENZAPRINE HCL 10 MG ORAL TABLET 1 tablet by mout h three times daily as needed for headaches CYCLOBENZAPRINE HCL 91520252659 No Longer Active Adam Yates MD Active OMEPRAZOLE 20 MG ORAL CAPSULE DELAYED RELEASE 1 tablet by mo [facility] daily for GERD OMEPRAZOLE 51470728762 No Longer Active Adam Yates MD Active ZOFRAN 8 MG ORAL TABLET 1 tab by mouth every 12 hours prn 4 ONDANSETRON HCL 02763645122 No Longer Active Adam Yates MD Active PHENADOZ 25 MG RECTAL SUPPOSITORY 1 every 4 hrs. PRN 2 PROMETHAZINE HCL 64383377247 No Longer Active Adam Yates MD A ctive POTASSIUM CHLORIDE 20 MEQ ORAL PACKET by mouth twice a day prn 2 POTASSIUM CHLORIDE 73387343272 No Longer Active Adam Carpenter MD Active PROMETHAZINE HCL 25 MG ORAL TABLET 1 Q. 4 hr. PRN PROMETHAZINE HCL 49758793675 No Longer Active Adam Yates MD Active INNOPRAN XL 120 MG ORAL CAPSULE EXTENDED RELEASE 24 HO UR Take one by mouth daily PROPRANOLOL HCL SR BEADS 66813488195 No Longer Active Adam Yates MD Active FLAGYL 500 MG ORAL TABLET 1 pill by mouth three times daily, for diarrhea METRONIDAZOLE 79289344488 No Longer Active Hope landers MD PhD Active DYAZIDE 37.5-25 MG ORAL CAPSULE 1 qd TRIA MTERENE-HCTZ 68104246159 No Longer Active Hope Benavidez MD PhD Active PROZAC 20 MG ORAL CAPSULE 1 q d FLUOXETINE HCL 47562017615 No Longer Active Hope Benavidez MD PhD Active SIMVASTATIN 40 MG ORAL TABLET 1 qd SIMVAS TATIN 55094797340 No Longer Active Adam Yates MD Active MELOXICAM 15 MG ORAL TABLET 1 qd MELOXICAM 13076159745 No Longer Active Adam Yates MD Active IMODIUM A-D 2 MG ORAL TABLET 2 onset at diarrhea and prn. LOPERAMIDE HCL 10578351733 Active Hope Benavidez MD PhD Active EXCEDRIN EXTRA STRENGTH 250-250-65 MG ORAL TABLET 1-2 q6h IL N headache [id number] 56245752460 Active Hope Benavidez MD PhD Active FLAGYL 500 MG ORAL TABLET 1 qid METRONIDAZOL E 66512210503 No Longer Active Adam Yates MD Active LEVAQUIN 750 MG ORAL TABLET 1 qd LEVOFLOXAC IN 66710806586 No Longer Active Adam Yates MD Active ADULT ASPIRIN LOW STRENGTH 81 MG ORAL TABLET DISINTEGRATING 1 qd ASPIRIN 60980632540 Active Hope Benavidez MD PhD Active LEVAQUIN 750 MG ORAL TABLET 1 qd LEVAQUIN 750 MG ORAL TABLET 229323 LEVOFLOXACIN Inactive FLAGYL 500 MG ORAL TABLET 1 qid FLAGYL 500 MG ORAL TABLET 638948 METRONIDAZOLE Inactive MELOXICAM 15 MG ORAL TABLET 1 qd MELOXICAM 15 MG ORAL TABLET 378205 MELOXICAM Inactive SIMVASTATIN 40 MG ORAL TABLET 1 qd SIMVASTATIN 40 MG ORAL TABLET 878024 SIMVASTATIN Inactive PROZAC 20 MG ORAL CAPSULE 1 q d PROZAC 20 MG ORAL CAPSULE 711734 FLUOXETINE HCL Inactive DYAZIDE 37.5-25 MG ORAL CAPSULE 1 qd 5 DYAZIDE 37.5-25 MG ORAL CAPSULE 855981 TRIAMTERENE-HCTZ Inactive INNOPRAN XL 120 MG ORAL CAPSULE EXTENDED RELEASE 24 HO UR Take one by mouth daily INNOPRAN XL 120 MG ORAL CAPSULE EXTENDED RELEASE 24 HOUR PROPRANOLOL HCL SR BEADS Inactive PROMETHAZINE HCL 25 MG ORAL TABLET 1 Q. 4 hr. PRN 2013 PROMETHAZINE HCL 25 MG ORAL TABLET 487048 PROMETHAZINE HCL Inactive POTASSIUM CHLORIDE 20 MEQ ORAL PACKET by mouth twice a day prn 2 POTASSIUM CHLORIDE 20 MEQ ORAL PACKET 8570949 POTASSIUM CHLORIDE Inactive PHENADOZ 25 MG RECTAL SUPPOSITORY 1 every 4 hrs. PRN 2 PHENADOZ 25 MG RECTAL SUPPOSITORY 231955 PROMETHAZINE HCL Inactive ZOFRAN 8 MG ORAL TABLET 1 tab by mouth every 12 hours prn 4 ZOFRAN 8 MG ORAL TABLET 602391 ONDANSETRON HCL Inactive OMEPRAZOLE 20 MG ORAL CAPSULE DELAYED RELEASE 1 tablet by mo uth daily for GERD OMEPRAZOLE 20 MG ORAL CAPSULE DELAYED RELEASE 19 8051 OMEPRAZOLE Inactive CYCLOBENZAPRINE HCL 10 MG ORAL TABLET 1 tablet by mout h three times daily as needed for headaches CYCLOBENZAPRINE HCL 10 MG ORAL TABLET 886111 CYCLOBENZAPRINE HCL Inactive VITAMIN D3 4000 IU 1 tab 3 times daily VITAMIN D3 4000 IU Inactive PROPRANOLOL HCL 80 MG ORAL TABLET 1 tab tue. and thur. PROPRANOLOL HCL 80 MG ORAL TABLET 348104 PROPRANOLOL HCL Inacti ve CYANOCOBALAMIN 1000 MCG/ML INJECTION SOLUTION 1 injection ev ruben 2 weeks CYANOCOBALAMIN 1000 MCG/ML INJECTION SOLUTION 30 9594 CYANOCOBALAMIN Inactive MAGNESIUM GLUCONATE 250 MG ORAL TABLET 1 tab tid 20 23/10/23 MAGNESIUM GLUCONATE 250 MG ORAL TABLET 094381 MAGNESIUM GLUCONATE Inactive LOMOTIL 2.5-0.025 MG ORAL TABLET 1 tab by mouth prn 20 23/10/23 LOMOTIL 2.5-0.025 MG ORAL TABLET 0376734 DIPHENOXYLATE-ATROPINE Inac tive FLORANEX ORAL PACKET 1 pack three times daily, for bowel health FLORANEX ORAL PACKET LACTOBACILLUS Inactive IRON 325 (65 Fe) MG ORAL TABLET 1 every other day 2015 IRON 325 (65 Fe) MG ORAL TABLET 669035 FERROUS SULFATE Inactive FLAGYL 500 MG ORAL TABLET 1 pill by mouth three times daily, for diarrhea FLAGYL 500 MG ORAL TABLET 397512 METRONIDAZOLE I nactive BACTRIM DS 800-160 MG ORAL TABLET 1 pill by mouth twice claudio y, for UTI BACTRIM DS 800-160 MG ORAL TABLET 325765 SULFAMETHOXAZOLE-TRIMETHOPRIM Inactive Advance Directives Directive Description Start [...] 11 .0-15.0 platelet count 157 THOUSAND/UL 10*3/mm3 230-783 2554/04/20 mean platelet volume 8.9 fL 7.5-12.5 Lab Report: CEA - Serology carcinoembryonic antigen 0.9 ng/mL Encounters Code Encounter Date Provider Facility CPT-52374 Level 2 Est. Patient 14:27:16 COPYMAN Kylie Lund [facility] CPT-93447 Level 3 Est. Patient 17:54:48 CDT Kylie Lund [facility] CPT-63843 Level 3 Est. Patient 16:26:30 CDT Kina blackmon [facility] CPT-93618 Level 3 New Patient 16:22:01 COPYMAN Adam Yates MD [facility] CPT-34465 Level 4 Est. Patient 17:00:48 CDT Kylie Lund [facility] CPT-99470 Level 3 Est. Patient 13:15:54 CDT Kylie Lund [facility] CPT-32371 Level 3 Est. Patient 09:10:11 CDT Kylie Lund [facility] CPT-47616 Level 4 Est. Patient 12:08:30 COPYMAN Hope cohn MD PhD [facility] CPT-61577 Level 4 Est. Patient 19:08:42 COPYMAN Hope cohn MD PhD [facility] CPT-66700 Level 4 Est. Patient 20:04:51 CDT Hope cohn MD PhD [facility] CPT-71832 Level 3 New Patient 01:46:11 COPYMAN Hope landers MD PhD [facility] Procedures Code Procedure Name Date Entry Date Standard Desc ription CPT-16507 First Vx - Ix admin for Medicare patients 11:19:30 CDT CPT-48190 Fluzone High-Dose Intramuscular Suspension 12/07 11:19:30 CDT CPT-J0897 Prolia 60 mg 14:55:42 CDT CPT-94940 Abx/Therapy Injection 14:55:42 CDT CPT-88462 Bone Density - XRAY USE ONLY 10:27:12 CDT 2 CPT-G0439 [facility] Annual Wellness Exam 17:54:53 CDT CPT-27799 Foot, left, comp min 3V - XRAY USE ONLY 12:22:49 CDT CPT-G0009 Administration of Pneumococcal Vaccine 3 12:18:00 CDT CPT-71863 Pneumovax 23 Injection Injectable 25 MCG /0.5ML 12:18:00 CDT CPT-J0897 Prolia 60 mg 14:14:16 COPYMAN CPT-10487 Abx/Therapy Injection 14:14:15 COPYMAN CPT-24524 Lipid - LAB USE ONLY 10:01:52 COPYMAN 2 CPT-64650 Calcium - LAB USE ONLY 10:01:51 COPYMAN CPT-46606 Venipuncture Draw Fee 10:01:51 COPYMAN CPT-LR Lesion Removal 16:22:01 COPYMAN CPT-34775 TSH - LAB USE ONLY 14:26:02 CDT CPT-33850 CMP - LAB USE ONLY 14:26:01 CDT CPT-24207 CBC with Diff - LAB USE ONLY 14:26:01 CDT 2 CPT-43308 Venipuncture Draw Fee 14:26:01 CDT CPT-50375 First Vx - Ix admin for Medicare patients 13:27:08 CDT CPT-48054 Fluzone High-Dose Intramuscular Suspension 11/26 13:27:08 CDT CPT-G0438 Initial Annual Wellness Exam 14:19:57 CD T CPT-G0009 Administration of Pneumococcal Vaccine 9 11:36:25 CDT CPT-35522 Prevnar 13 Intramuscular Suspension 1 1:36:25 CDT CPT-78522 Prevnar 13 Intramuscular Suspension 1 0:40:58 CDT CPT-J0897 Prolia 60 mg 10:37:16 CDT CPT-37355 Abx/Therapy Injection 10:37:16 CDT CPT-J0897 Prolia 60 mg 16:09:34 COPYMAN CPT-J0897 Prolia 60 mg 11:10:35 COPYMAN CPT-09908 Abx/Therapy Injection 11:10:35 COPYMAN CPT-000 Give Appropriate Flu Vaccine 17:01:15 COPYMAN 2 CPT-35044 Fluzone High Dose (65+) 15:03:08 COPYMAN 02/15 CPT-41350 Immunization Single Admin 15:03:08 COPYMAN 2014 CPT-OV Office Visit 15:58:06 CDT CPT-J0897 Prolia 60 mg 08:45:38 CDT CPT-08708 Abx/Therapy Injection 08:45:38 CDT CPT-J3420 Vitamin B12 1000mcg (Cyanocobalamin) 09:26:20 COPYMAN CPT-81601 Abx/Therapy Injection 09:26:20 COPYMAN CPT-J3420 Vitamin B12 1000mcg (Cyanocobalamin) 09:44:40 COPYMAN CPT-21181 Abx/Therapy Injection 09:44:40 COPYMAN CPT-J3420 Vitamin B12 1000mcg (Cyanocobalamin) 09:15:54 COPYMAN CPT-19561 Abx/Therapy Injection 09:15:54 COPYMAN CPT-J3420 Vitamin B12 1000mcg (Cyanocobalamin) 09:46:44 COPYMAN CPT-89684 Abx/Therapy Injection 09:46:44 COPYMAN CPT-J3420 Vitamin B12 1000mcg (Cyanocobalamin) 09:47:34 COPYMAN CPT-19171 Abx/Therapy Injection 09:47:34 COPYMAN CPT-J3420 Vitamin B12 1000mcg (Cyanocobalamin) 14:35:50 COPYMAN CPT-J3420 Vitamin B12 1000mcg (Cyanocobalamin) 09:25:05 COPYMAN CPT-08525 Abx/Therapy Injection 09:25:05 COPYMAN CPT-G0008 Administration of Influenza Virus Vaccine 13:36:47 CDT CPT-48128 Fluzone High-Dose Intramuscular Suspension 11/15 13:36:47 CDT CPT-J0897 Prolia 60 mg 08:50:41 CDT CPT-76113 Abx/Therapy Injection 08:50:41 CDT CPT-22872 Bone Density 12:06:12 CDT CPT-66059 Bone Density 08:54:40 CDT CPT-OV Office Visit 15:37:02 CDT CPT-36940 Postop F/U Visit 15:47:49 CDT CPT-96102 Postop F/U Visit 15:21:02 CDT [facility] Transitional Care Mgmt-High 07:52:27 CDT 20 20/06/01 CPT-87323 Venipuncture Draw Fee 13:51:18 CDT CPT-50271 Venipuncture Draw Fee 10:14:55 COPYMAN CPT-84024 Venipuncture Draw Fee 13:39:45 COPYMAN CPT-OV Office Visit 15:11:22 COPYMAN CPT-13101 Venipuncture Draw Fee 09:20:49 COPYMAN CPT-30193 Venipuncture Draw Fee 16:52:15 COPYMAN CPT-35640 Venipuncture Draw Fee 10:37:24 COPYMAN CPT-18885 Venipuncture Draw Fee 08:21:21 COPYMAN CPT-17485 Venipuncture Draw Fee 08:30:20 COPYMAN CPT-27354 Venipuncture Draw Fee 14:53:21 COPYMAN CPT-34939 Venipuncture Draw Fee 09:40:56 COPYMAN CPT-45505 Venipuncture Draw Fee 10:30:47 COPYMAN CPT-33125 Venipuncture Draw Fee 10:46:17 COPYMAN CPT-94237 Venipuncture Draw Fee 11:12:45 COPYMAN CPT-51149 Venipuncture Draw Fee 09:53:33 COPYMAN CPT-75421 Venipuncture Draw Fee 11:53:51 COPYMAN CPT-71777 Venipuncture Draw Fee 10:33:50 COPYMAN CPT-76367 Venipuncture Draw Fee 10:05:01 COPYMAN CPT-16176 Venipuncture Draw Fee 14:32:52 COPYMAN CPT-30269 Venipuncture Draw Fee 09:46:13 COPYMAN CPT-71518 Venipuncture Draw Fee 11:34:27 COPYMAN CPT-84962 Venipuncture Draw Fee 13:17:16 COPYMAN CPT-64173 Venipuncture Draw Fee 12:05:39 CDT CPT-34066 Venipuncture Draw Fee 12:49:12 CDT CPT-94970 Venipuncture Draw Fee 12:37:18 CDT CPT-37756 Venipuncture Draw Fee 10:57:11 CDT CPT-15493 Venipuncture Draw Fee 13:47:40 CDT CPT-92035 Venipuncture Draw Fee 10:02:17 CDT CPT-23760 TB Tubersol 17:32:32 CDT CPT-OV Office Visit 16:21:53 CDT CPT-OV Office Visit 15:49:22 CDT CPT-OV Office Visit 17:16:31 CDT CPT-OV Office Visit 10:43:31 CDT
--- OUTSIDE RECORDS SUMMARY | 2019-02-09 12:55 | XMS REPORT | Clinical Summary ---
Author Author Renaldo, Florecita Munoz Organization [facility] Address Unknown Phone Unavailable Allergies, Adverse Reactions, [...] PhD Hyperpotassemia GERD 530.81 Resolved Kylie Yokum TIMEKEEPER Esophageal reflux Health maintenance exam V70.0 Resolved Adolfo Yates MD Routine general medical examination at a health care facility Anemia 285.9 Resolved Kylie Holt TIMEKEEPER Anemia, unspecified Personal history of malignant neoplasm [...] Sebaceous cyst, scalp 706.2 Resolved Kylieshubham Lundum TIMEKEEPER Sebaceous cyst Cervical lymphadenopathy, anterior, left 785.6 Resolv ed Kylie Escalonagabbium TIMEKEEPER Enlargement of lymph nodes Need for prophylactic vaccination and inoculation against in fluenza V04.81 Active Citlaly Watkins RMA Need for prophylactic vaccination and inoculation against influenza Preventive health care V70.0 Active Kylie Polapari TIMEKEEPER Routine general medical examination at a health care facility Thyroid nodule, left 241.0 Active Kylie Polagabbium A PRN Nontoxic uninodular goiter ABDOMINAL PAIN, RIGHT LOWER QUADRANT ICD-789.03 Inactive Kina Joshua TIMEKEEPER ADENOCARCINOMA, COLON, 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 Dick Yates MD ABDOMINAL PAIN, GENERALIZED ICD-789.07 Inactive Hope Benavidez MD PhD FEVER UNSPECIFIED ICD-780.60 Inactive Hope cohn MD PhD UNSPECIFIED VENOUS INSUFFICIENCY ICD-459.81 [place] ctive Adam Yates MD ADENOCARCINOMA, 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 Inac tive Hope Benavidez MD PhD Hyperkalemia ICD-276.7 Inactive Hope Benavidez MD PhD GERD ICD-530.81 Inactive Kylie Holt TIMEKEEPER 2015 Health maintenance exam ICD-V70.0 Bam Yates MD Anemia ICD-285.9 Inactive Kylie Lundum TIMEKEEPER 07/24 Weakness ICD-780.79 Inactive Hope Benavidez MD P hD Aftercare following surgery of the teeth,oral cavity a nd digestive system, NEC ICD-V58.75 Inactive Adam Yates MD Colon cancer ICD-153.9 Inactive Adam luna MD Asymptomatic postmenopausal status (age-related) (natural) I CD-V49.81 Inactive Hope Benavidez MD PhD Dysuria ICD-788.1 Inactive Hope Benavidez MD PhD 201 05/19/01 Sebaceous cyst, scalp ICD-706.2 Inactive Tracy Lundum TIMEKEEPER Cervical lymphadenopathy, anterior, left ICD-785.6 Inactive Kylie Lundum TIMEKEEPER Medication List Medication Instructions Start Date Stop Date Generic Name NDC Status Provider Patient Instruction VITAMIN D3 2000 UNIT ORAL CAPS Melaleuca-One daily CHOLECALCIFEROL [id number] Active Kylie Lundum TIMEKEEPER Active PROBIOTIC DAILY ORAL CAPS Take one daily PROBIOTIC PRODUCT 55141473745 Active Kylie Yokum TIMEKEEPER Active IRON 325 (65 FE) MG TABS 1 every other day FERR OUS SULFATE 39477151742 No Longer Active Kylie Yokum TIMEKEEPER Active FLORANEX PACK 1 pack three times daily, for bowel health LACTOBACILLUS 95278645141 No Longer Active Kylie Yokum TIMEKEEPER Active LOMOTIL 2.5-0.025 MG TABS 1 tab by mouth prn 4 DIPHENOXYLATE-ATROPINE 96808321727 No Longer Active Kylie Yokum TIMEKEEPER Active MAGNESIUM GLUCONATE 250 MG TABS 1 tab tid 4 MAGNESIUM GLUCONATE 45313735411 No Longer Active Kylie Yokum TIMEKEEPER Active CYANOCOBALAMIN 1000 MCG/ML INJ SOLN 1 injection every 2 weeks 20 20/01/03 CYANOCOBALAMIN 56770726010 No Longer Active Kylie Yokum TIMEKEEPER Active ATENOLOL 25 MG ORAL TABS 1/2 pill by mouth daily, for headac hes, blood pressure ATENOLOL 33498910187 Active Kylie Yokum TIMEKEEPER Active PROPRANOLOL HCL 80 MG TABS 1 tab tue. and thur. 04/10 PROPRANOLOL HCL 40528672919 No Longer Active Hope Benavidez MD PhD A ctive VITAMIN D3 4000 IU 1 tab 3 times daily VITAMIN D3 4000 IU No Longer Active Hope Benavidez MD PhD Active BACTRIM DS 800-160 MG TABS 1 pill by mouth twice daily, for UTI SULFAMETHOXAZOLE-TRIMETHOPRIM 70550123766 No Longer Active A attila Benavidez MD PhD Active PROLIA 60 MG/ML SOLN 1 shot every 6 months for osteoprosis DENOSUMAB 90926689233 Active Hope Benavidez MD PhD Active CALCIUM + D + K 750-500-40 MG-UNT-MCG TABS 1 tab by mouth tw ice daily CALCIUM-VITAMIN D-VITAMIN K 57711901077 Active Hope landers MD PhD Active DAILY VALUE MULTIVITAMIN TABS 1 tab by mouth twice daily MULTIPLE VITAMIN 54491621464 Active Hope Benavidez MD PhD Active FISH OIL 306 MG CAPS 1 tab by mouth three times daily OMEGA-3 FATTY ACIDS 05158385287 Active Hope Benavidez MD PhD Active LUTEIN 10 MG TABS 1 tab daily LUTEIN 84007177971 Act cash Hope Benavidez MD PhD Active TRIAMTERENE-HCTZ 37.5-25 MG TABS 1 tab by mouth daily TRIAMTERENE-HCTZ 64359942549 Active Kylie Yokum TIMEKEEPER Active CYCLOBENZAPRINE HCL 10 MG TABS 1 tablet by mouth three times daily as needed for headaches CYCLOBENZAPRINE HCL 50975372362 No Longe r Active Adam Yates MD Active OMEPRAZOLE 20 MG CPDR 1 tablet by mouth daily for GERD OMEPRAZOLE 18947534297 No Longer Active Adam Yates MD A ctive ZOFRAN 8 MG TABS 1 tab by mouth every 12 hours prn 201 05/16/09 ONDANSETRON HCL 36329553468 No Longer Active Adam Yates MD Active PHENADOZ 25 MG SUPP 1 every 4 hrs. PRN PROMETHA ZINE HCL 01386070906 No Longer Active Adam Yates MD Active POTASSIUM CHLORIDE 20 MEQ PACK by mouth twice a day prn POTASSIUM CHLORIDE 96618791910 No Longer Active Adam Yates MD Active PROMETHAZINE HCL 25 MG TABS 1 Q. 4 hr. PRN PROM ETHAZINE HCL 06938020008 No Longer Active Adam Yates MD Active INNOPRAN XL 120 MG [id number] Take one by mouth daily 2 PROPRANOLOL HCL SR BEADS 28162313311 No Longer Active Adam Yates MD A ctive FLAGYL 500 MG TABS 1 pill by mouth three times daily, for diarrh ea METRONIDAZOLE 73323638650 No Longer Active Hope Benavidez MD PhD Active DYAZIDE 37.5-25 MG CAPS 1 qd TRIAMTERENE-HC TZ 13514090275 No Longer Active Hope Benavidez MD PhD Active PROZAC 20 MG CAPS 1 q d FLUOXETINE HCL 31710 227550 No Longer Active Hope Benavidez MD PhD Active SIMVASTATIN 40 MG TABS 1 qd SIMVASTATIN 004 42175266 No Longer Active Adam Yates MD Active MELOXICAM 15 MG TABS 1 qd MELOXICAM 6338057 6218 No Longer Active Adam Yates MD Active IMODIUM A-D 2 MG TABS 2 onset at diarrhea and prn. LOPERAMIDE HCL 59797778233 Active Hope Benavidez MD PhD Active EXCEDRIN EXTRA STRENGTH 250-250-65 MG TABS 1-2 q6h PRN headache 201 04/16/21 [id number] 11255836769 Active Hope Benavidez MD PhD Active FLAGYL 500 MG TABS 1 qid METRONIDAZOLE 96981 366302 No Longer Active Adam Yates MD Active LEVAQUIN 750 MG TABS 1 qd LEVOFLOXACIN 5486 8572264 No Longer Active Adam Yates MD Active ADULT ASPIRIN LOW STRENGTH 81 MG TBDP 1 qd A SPIRIN 64268469874 Active Hope Benavidez MD PhD Active LEVAQUIN 750 MG TABS 1 qd LEVAQUIN 750 MG T ABS 214902 LEVOFLOXACIN Inactive FLAGYL 500 MG TABS 1 qid FLAGYL 500 MG TABS 733280 METRONIDAZOLE Inactive MELOXICAM 15 MG TABS 1 qd MELOXICAM 15 MG T ABS 902293 MELOXICAM Inactive SIMVASTATIN 40 MG TABS 1 qd SIMVASTATIN 40 MG TABS 656878 SIMVASTATIN Inactive PROZAC 20 MG CAPS 1 q d PROZAC 20 MG CAPS 31 0385 FLUOXETINE HCL Inactive DYAZIDE 37.5-25 MG CAPS 1 qd DYAZIDE 37.5 -25 MG CAPS 938539 TRIAMTERENE-HCTZ Inactive INNOPRAN XL 120 MG [id number] Take one by mouth daily 2 INNOPRAN XL 120 MG [id number] PROPRANOLOL HCL SR BEADS Inactive PROMETHAZINE HCL 25 MG TABS 1 Q. 4 hr. PRN PROMETHAZINE HCL 25 MG TABS 641632 PROMETHAZINE HCL Inactive POTASSIUM CHLORIDE 20 MEQ PACK by mouth twice a day prn POTASSIUM CHLORIDE 20 MEQ PACK 095314 POTASSIUM CHLORIDE Inactive PHENADOZ 25 MG SUPP 1 every 4 hrs. PRN PHENADOZ 2 5 MG SUPP 190889 PROMETHAZINE HCL Inactive ZOFRAN 8 MG TABS 1 tab by mouth every 12 hours prn 201 05/16/09 ZOFRAN 8 MG TABS 778489 ONDANSETRON HCL Inactive OMEPRAZOLE 20 MG CPDR 1 tablet by mouth daily for GERD OMEPRAZOLE 20 MG CPDR 503304 OMEPRAZOLE Inactive CYCLOBENZAPRINE HCL 10 MG TABS 1 tablet by mouth three times daily as needed for headaches CYCLOBENZAPRINE HCL 10 MG TABS 388442 CYCLOBENZAPRINE HCL Inactive VITAMIN D3 4000 IU 1 tab 3 times daily VITAMIN D3 4000 IU Inactive PROPRANOLOL HCL 80 MG TABS 1 tab tue. and thur. 04/10 PROPRANOLOL HCL 80 MG TABS 036865 PROPRANOLOL HCL Inactive CYANOCOBALAMIN 1000 MCG/ML INJ SOLN 1 injection every 2 weeks 20 20/01/03 CYANOCOBALAMIN 1000 MCG/ML INJ SOLN 780668 CYANOCOBALAM IN Inactive MAGNESIUM GLUCONATE 250 MG TABS 1 tab tid 4 MAGNESIUM GLUCONATE 250 MG TABS 379495 MAGNESIUM GLUCONATE Inactive LOMOTIL 2.5-0.025 MG TABS 1 tab by mouth prn 4 LOMOTIL 2.5- 0.025 MG TABS 6599188 DIPHENOXYLATE-ATROPINE Inactive FLORANEX PACK 1 pack three times daily, for bowel health FLORANEX PACK LACTOBACILLUS Inactive IRON 325 (65 FE) MG TABS 1 every other day IRON 325 (65 FE) MG TABS 570543 FERROUS SULFATE Inactive FLAGYL 500 MG TABS 1 pill by mouth three times daily, for diarrh ea FLAGYL 500 MG TABS 913498 METRONIDAZOLE Inactive BACTRIM DS 800-160 MG TABS 1 pill by mouth twice daily, for UTI BACTRIM DS 800-160 MG TABS 150812 SULFAMETHOXAZOLE-TRIM ETHOPRIM Inactive Advance Directives Directive Description [...] Panel - Chemistry sodium, serum 142 mmol/L 603-494 2594/04/20 carbon dioxide, venous blood 34.7 mmol/L 21.0-32 .0 potassium, serum 3.5 mmol/L 3.5-5.2 chloride, serum 102 mmol/L 98-107 blood glucose 102 mg/dL 65-110 urea nitrogen, blood 24 mg/dL 7-18 creatinine, serum 1.37 mg/dL 0.55-1.30 alanine aminotransferase (SGPT), serum 72 U/L 12-78 aspartate aminotransferase (SGOT), serum 44 U/L 15-37 calcium, serum 9.0 mg/dL 8.5-10.1 bilirubin, serum, total 0.50 mg/dL 0.00-1.00 sodium, serum 138 mmol/L 450-013 5592/10/23 carbon dioxide, venous blood 29.5 mmol/L 21.0-32 [...] 11 .6-14.8 platelet count 189 10^3/MM^3 10*3/mm3 917-610 4369/04/20 leukocyte count, blood 5.9 10^3/MM^3 10*3/mm3 4.6-10.2 [...] 1.24 m[iU]/mL 0.36-3.74 cholesterol, serum 227 mg/dL 248-320 0239/10/23 triglyceride, serum, fasting 144 mg/dL 30-200 HDL cholesterol, serum 60 mg/dL 32-96 LDL cholesterol, serum 138 mg/dL 0-130 Lab Report: Lipid Panel, MICROALBUMIN, T hyroid Stimulating Hormone (L) - Lab microalbumin, urine 10 0-19 Encounters Code Encounter Date Provider Facility CPT-58875 Level 4 Est. Patient 17:00:48 CDT [facility] CPT-26271 Level 3 Est. Patient 13:15:[address] [facility] CPT-70736 Level 3 Est. Patient 09:10:11 CDT [facility] CPT-96091 Level 4 Est. Patient 12:08:30 JANITORIAL MANAGER Hope cohn MD PhD [facility] CPT-22510 Level 4 Est. Patient 19:08:42 JANITORIAL MANAGER Hope cohn MD PhD [facility] CPT-96309 Level 4 Est. Patient 20:04:51 CDT Hope cohn MD PhD [facility] CPT-16435 Level 3 New Patient 01:46:11 JANITORIAL MANAGER Hope landers MD PhD [facility] Procedures Code Procedure Name Date Entry Date Standard Desc ription CPT-G0438 Initial Annual Wellness Exam 14:19:57 CD T CPT-G0009 Administration of Pneumococcal Vaccine 9 11:36:25 CDT CPT-07712 Prevnar 13 Intramuscular Suspension 1 1:36:25 CDT CPT-51634 Prevnar 13 Intramuscular Suspension 1 0:40:58 CDT CPT-J0897 Prolia 60 mg 10:37:16 CDT CPT-24999 Abx/Therapy Injection 10:37:16 CDT CPT-J0897 Prolia 60 mg 16:09:34 JANITORIAL MANAGER CPT-J0897 Prolia 60 mg 11:10:35 JANITORIAL MANAGER CPT-71563 Abx/Therapy Injection 11:10:35 JANITORIAL MANAGER CPT-000 Give Appropriate Flu Vaccine 17:01:15 JANITORIAL MANAGER 2 CPT-40215 Fluzone High Dose (65+) 15:03:08 JANITORIAL MANAGER 02/15 CPT-60780 Immunization Single Admin 15:03:08 JANITORIAL MANAGER 2014 CPT-OV Office Visit 15:58:06 CDT CPT-J0897 Prolia 60 mg 08:45:38 CDT CPT-53607 Abx/Therapy Injection 08:45:38 CDT CPT-J3420 Vitamin B12 1000mcg (Cyanocobalamin) 09:26:20 JANITORIAL MANAGER CPT-87787 Abx/Therapy Injection 09:26:20 JANITORIAL MANAGER CPT-J3420 Vitamin B12 1000mcg (Cyanocobalamin) 09:44:40 JANITORIAL MANAGER CPT-13798 Abx/Therapy Injection 09:44:40 JANITORIAL MANAGER CPT-J3420 Vitamin B12 1000mcg (Cyanocobalamin) 09:15:54 JANITORIAL MANAGER CPT-15859 Abx/Therapy Injection 09:15:54 JANITORIAL MANAGER CPT-J3420 Vitamin B12 1000mcg (Cyanocobalamin) 09:46:44 JANITORIAL MANAGER CPT-82220 Abx/Therapy Injection 09:46:44 JANITORIAL MANAGER CPT-J3420 Vitamin B12 1000mcg (Cyanocobalamin) 09:47:34 JANITORIAL MANAGER CPT-47840 Abx/Therapy Injection 09:47:34 JANITORIAL MANAGER CPT-J3420 Vitamin B12 1000mcg (Cyanocobalamin) 14:35:50 JANITORIAL MANAGER CPT-J3420 Vitamin B12 1000mcg (Cyanocobalamin) 09:25:05 JANITORIAL MANAGER CPT-72257 Abx/Therapy Injection 09:25:05 JANITORIAL MANAGER CPT-G0008 Administration of Influenza Virus Vaccine 13:36:47 CDT CPT-94755 Fluzone High-Dose Intramuscular Suspension 11/15 13:36:47 CDT CPT-J0897 Prolia 60 mg 08:50:41 CDT CPT-81123 Abx/Therapy Injection 08:50:41 CDT CPT-36712 Bone Density 12:06:12 CDT CPT-54944 Bone Density 08:54:40 CDT CPT-OV Office Visit 15:37:02 CDT CPT-90599 Postop F/U Visit 15:47:49 CDT CPT-56025 Postop F/U Visit 15:21:02 CDT CPT-TCMH Transitional Care Mgmt-High 07:52:27 CDT 20 20/06/01 CPT-07528 Venipuncture Draw Fee 13:51:18 CDT CPT-78263 Venipuncture Draw Fee 10:14:55 JANITORIAL MANAGER CPT-81450 Venipuncture Draw Fee 13:39:45 JANITORIAL MANAGER CPT-OV Office Visit 15:11:22 JANITORIAL MANAGER CPT-47990 Venipuncture Draw Fee 09:20:49 JANITORIAL MANAGER CPT-40628 Venipuncture Draw Fee 16:52:15 JANITORIAL MANAGER CPT-83808 Venipuncture Draw Fee 10:37:24 JANITORIAL MANAGER CPT-74329 Venipuncture Draw Fee 08:21:21 JANITORIAL MANAGER CPT-20338 Venipuncture Draw Fee 08:30:20 JANITORIAL MANAGER CPT-44743 Venipuncture Draw Fee 14:53:21 JANITORIAL MANAGER CPT-78918 Venipuncture Draw Fee 09:40:56 JANITORIAL MANAGER CPT-13418 Venipuncture Draw Fee 10:30:47 JANITORIAL MANAGER CPT-43008 Venipuncture Draw Fee 10:46:17 JANITORIAL MANAGER CPT-52758 Venipuncture Draw Fee 11:12:45 JANITORIAL MANAGER CPT-35955 Venipuncture Draw Fee 09:53:33 JANITORIAL MANAGER CPT-33690 Venipuncture Draw Fee 11:53:51 JANITORIAL MANAGER CPT-97092 Venipuncture Draw Fee 10:33:50 JANITORIAL MANAGER CPT-44485 Venipuncture Draw Fee 10:05:01 JANITORIAL MANAGER CPT-51455 Venipuncture Draw Fee 14:32:52 JANITORIAL MANAGER CPT-22641 Venipuncture Draw Fee 09:46:13 JANITORIAL MANAGER CPT-64184 Venipuncture Draw Fee 11:34:27 JANITORIAL MANAGER CPT-90979 Venipuncture Draw Fee 13:17:16 JANITORIAL MANAGER CPT-01306 Venipuncture Draw Fee 12:05:39 CDT CPT-52010 Venipuncture Draw Fee 12:49:12 CDT CPT-53342 Venipuncture Draw Fee 12:37:18 CDT CPT-05805 Venipuncture Draw Fee 10:57:11 CDT CPT-62779 Venipuncture Draw Fee 13:47:40 CDT CPT-05005 Venipuncture Draw Fee 10:02:17 CDT CPT-06577 TB Tubersol 17:32:32 CDT CPT-OV Office Visit 16:21:53 CDT CPT-OV Office Visit 15:49:22 CDT CPT-OV Office Visit 17:16:31 CDT CPT-OV Office Visit 10:43:31 CDT
--- OUTSIDE RECORDS SUMMARY | 2019-02-09 12:56 | XMS REPORT | Clinical Summary ---
Author Author Renaldo, Florecita Munoz Organization [facility] Address Unknown Phone Unavailable Allergies, Adverse Reactions, [...] Hyperpotassemia GERD 530.81 Resolved Kylie Yokum [employer] Esophageal reflux Health maintenance exam V70.0 Resolved Adolfo Yates MD Routine general medical examination at a health care facility Anemia 285.9 Resolved Kylie Holt [employer] Anemia, unspecified Personal history of malignant neoplasm of large intestine V10.05 Active Adam Yates MD Personal history of malignant neoplasm of large intestine Hypomagnesemia 275.2 Resolved Kylie Holt [employer] Disorders of magnesium metabolism Weakness 780.79 [...] Yates MD Functional diarrhea Osteoporosis 733.00 Active Hpoe Benavidez MD PhD Osteoporosis, unspecified Dysuria 788.1 [...] cyst, scalp 706.2 Resolved Kylie Yokum [employer] Sebaceous cyst Cervical lymphadenopathy, anterior, left 785.6 Resolv ed Kylie Yokum [employer] Enlargement of lymph nodes Need for prophylactic vaccination and inoculation against in fluenza V04.81 Resolved Adam Yates MD Need for prophylactic vaccination and inoculation against influenza Preventive health care V70.0 Active Kylie Yokum [employer] Routine general medical examination at a health care facility Thyroid nodule, left 241.0 Active Kylie Yokum A PRN Nontoxic uninodular goiter Screening mammogram V76.12 Active Kylie Yokum AP RN Other screening mammogram Mandy 706.2 Resolved Kylie Yokum [employer] Sebaceous cyst Colon cancer, ascending 153.6 Resolved Kylie Yok um [employer] Malignant neoplasm of ascending colon Foot pain, left 729.5 Active Sulema Naff SEED ANALYST Pain in limb Splinter 919.6 Active Kylie Yokum [employer] Superficial foreign body (splinter) of other, multiple, and unspecified sites, without major open wound and without mention of infection Rash 782.1 Active Kylie Yokum [employer] R aurora and other nonspecific skin eruption ABDOMINAL PAIN, RIGHT LOWER QUADRANT ICD-789.03 Inactive Kina Joshua [employer] ADENOCARCINOMA, COLON, 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 Dick Yates MD ABDOMINAL PAIN, GENERALIZED ICD-789.07 Inactive Hope Benavidez MD PhD FEVER UNSPECIFIED ICD-780.60 Inactive Hope cohn MD PhD UNSPECIFIED VENOUS INSUFFICIENCY ICD-459.81 Lafe ctive Adam Yates MD ADENOCARCINOMA, 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 Inac tive Hope Benavidez MD PhD Hyperkalemia ICD-276.7 Inactive Hope Benavidez MD PhD GERD ICD-530.81 Inactive Kylie Yanet [employer] 2015 Health maintenance exam ICD-V70.0 Bam Yates MD Anemia ICD-285.9 Inactive Kylie Holt [employer] 07/24 Hypomagnesemia ICD-275.2 Inactive Kylie Yokum [employer] Weakness ICD-780.79 Inactive Hope Benavidez MD [...] Sebaceous cyst, scalp ICD-706.2 Inactive Tracy Holt [employer] Cervical lymphadenopathy, anterior, left ICD-785.6 Inactive Kylie Holt [employer] Need for prophylactic vaccination and inoculation against in fluenza ICD-V04.81 Inactive Adam Yates MD Mandy ICD-706.2 Inactive Kylie Holt [employer] 07/20 Colon cancer, ascending ICD-153.6 Inactive Gabbi Escalonagabbioliver [employer] Medication List Medication Instructions Start Date Stop Date Generic Name ND Status Provider Patient Instruction VOLTAREN 1 % TRANSDERMAL GEL apply q 6-8 hour to left arm as needed for pain DICLOFENAC SODIUM 75916729775 Active Kylie Holt APRN Active COQ10 100 MG ORAL CAPSULE 1 daily COENZYME Q10 883861 21078 Active LETY Nation Active VITAMIN D3 2000 UNIT ORAL CAPSULE Melaleuca-One daily CHOLECALCIFEROL 40495452909 Active Kylie Holt APRN Active PROBIOTIC DAILY ORAL CAPSULE Take one daily PROBIO TIC PRODUCT 56392950479 Active Kylie Holt APRN Active IRON 325 (65 Fe) MG ORAL TABLET 1 every other day FERROUS SULFATE 97509164500 No Longer Active Kylie Holt AMY Active FLORANEX ORAL PACKET 1 pack three times daily, for bowel health LACTOBACILLUS 56687372782 No Longer Active Kylie Lundum [employer] Active LOMOTIL 2.5-0.025 MG ORAL TABLET 1 tab by mouth prn 23/10/23 DIPHENOXYLATE-ATROPINE 34650049155 No Longer Active Kylie Lundum [employer] Active MAGNESIUM GLUCONATE 250 MG ORAL TABLET 1 tab tid 23/10/23 MAGNESIUM GLUCONATE 72155564461 No Longer Active Kylie Lundum [employer] Active CYANOCOBALAMIN 1000 MCG/ML INJECTION SOLUTION 1 injection ev ruben 2 weeks CYANOCOBALAMIN 93426666292 No Longer Active Kylie boyd [employer] Active ATENOLOL 25 MG ORAL TABLET 1/2 pill by mouth daily, fo r headaches, blood pressure ATENOLOL 09849274529 Active Kylie Holt [employer] Active PROPRANOLOL HCL 80 MG ORAL TABLET 1 tab tue. and thur. PROPRANOLOL HCL 04345690118 No Longer Active Hope Benavidez MD PhD A ctive VITAMIN D3 4000 IU 1 tab 3 times daily VITAMIN D3 4000 IU No Longer Active Hope Benavidez MD PhD Active BACTRIM DS 800-160 MG ORAL TABLET 1 pill by mouth twice claudio y, for UTI SULFAMETHOXAZOLE-TRIMETHOPRIM 27663040847 No Longer Active Hope Benavidez MD PhD Active PROLIA 60 MG/ML SUBCUTANEOUS SOLUTION 1 shot every 6 months for osteoprosis DENOSUMAB 06412918711 Active Hope Benavidez MD PhD Active CALCIUM + D + K 750-500-40 MG-UNT-MCG ORAL TABLET 1 tab by m [facility] twice daily CALCIUM-VITAMIN D-VITAMIN K 33894137942 Active Hope valdez MD PhD Active DAILY VALUE MULTIVITAMIN ORAL TABLET 1 tab by mouth twice daily 201 05/16/14 MULTIPLE VITAMIN 77020315446 Active Hope Benavidez MD PhD Acti ve FISH OIL 306 MG CAPS 1 tab by mouth three times daily OMEGA-3 FATTY ACIDS 04983447909 Active Hope Benavidez MD PhD Active LUTEIN 10 MG ORAL TABLET 1 tab daily LUTEIN 18313145 408 Active Hope Benavidez MD PhD Active TRIAMTERENE-HCTZ 37.5-25 MG ORAL TABLET 1 tab by mouth daily 10/22 TRIAMTERENE-HCTZ 47589537098 Active LETY Rossi CYCLOBENZAPRINE HCL 10 MG ORAL TABLET 1 tablet by mout h three times daily as needed for headaches CYCLOBENZAPRINE HCL 61867160804 No Longer Active Adam Yates MD Active OMEPRAZOLE 20 MG ORAL CAPSULE DELAYED RELEASE 1 tablet by mo [facility] daily for GERD OMEPRAZOLE 02134451049 No Longer Active Adam Yates MD Active ZOFRAN 8 MG ORAL TABLET 1 tab by mouth every 12 hours prn 4 ONDANSETRON HCL 22184523867 No Longer Active Adam Yates MD Active PHENADOZ 25 MG RECTAL SUPPOSITORY 1 every 4 hrs. PRN 2 PROMETHAZINE HCL 10358608851 No Longer Active Adam Yates MD A ctive POTASSIUM CHLORIDE 20 MEQ ORAL PACKET by mouth twice a day prn 2 POTASSIUM CHLORIDE 55650684565 No Longer Active Adam Carpenter MD Active PROMETHAZINE HCL 25 MG ORAL TABLET 1 Q. 4 hr. PRN PROMETHAZINE HCL 47121698472 No Longer Active Adam Yates MD Active INNOPRAN XL 120 MG ORAL CAPSULE EXTENDED RELEASE 24 HO UR Take one by mouth daily PROPRANOLOL HCL SR BEADS 97638159694 No Longer Active Adam Yates MD Active FLAGYL 500 MG ORAL TABLET 1 pill by mouth three times daily, for diarrhea METRONIDAZOLE 65421178807 No Longer Active Hope landers MD PhD Active DYAZIDE 37.5-25 MG ORAL CAPSULE 1 qd TRIA MTERENE-HCTZ 55823921157 No Longer Active Hope Benavidez MD PhD Active PROZAC 20 MG ORAL CAPSULE 1 q d FLUOXETINE HCL 19281151605 No Longer Active Hope Benavidez MD PhD Active SIMVASTATIN 40 MG ORAL TABLET 1 qd SIMVAS TATIN 53988665261 No Longer Active Adam Yates MD Active MELOXICAM 15 MG ORAL TABLET 1 qd MELOXICAM 53707668366 No Longer Active Adam Yates MD Active IMODIUM A-D 2 MG ORAL TABLET 2 onset at diarrhea and prn. LOPERAMIDE HCL 96233165637 Active Hope Benavidez MD PhD Active EXCEDRIN EXTRA STRENGTH 250-250-65 MG ORAL TABLET 1-2 q6h IN N headache LTYWOFQ-[id number]-AFYIURFS 86159397803 Active Hope Benavidez MD PhD Active FLAGYL 500 MG ORAL TABLET 1 qid METRONIDAZOL E 08132789787 No Longer Active Adam Yates MD Active LEVAQUIN 750 MG ORAL TABLET 1 qd LEVOFLOXAC IN 12118552015 No Longer Active Adam Yates MD Active ADULT ASPIRIN LOW STRENGTH 81 MG ORAL TABLET DISINTEGRATING 1 qd ASPIRIN 82223290220 Active Hope Benavidez MD PhD Active LEVAQUIN 750 MG ORAL TABLET 1 qd LEVAQUIN 750 MG ORAL TABLET 210789 LEVOFLOXACIN Inactive FLAGYL 500 MG ORAL TABLET 1 qid FLAGYL 500 MG ORAL TABLET 332690 METRONIDAZOLE Inactive MELOXICAM 15 MG ORAL TABLET 1 qd MELOXICAM 15 MG ORAL TABLET 191986 MELOXICAM Inactive SIMVASTATIN 40 MG ORAL TABLET 1 qd SIMVASTATIN 40 MG ORAL TABLET 307024 SIMVASTATIN Inactive PROZAC 20 MG ORAL CAPSULE 1 q d PROZAC 20 MG ORAL CAPSULE 859884 FLUOXETINE HCL Inactive DYAZIDE 37.5-25 MG ORAL CAPSULE 1 qd 5 DYAZIDE 37.5-25 MG ORAL CAPSULE 224336 TRIAMTERENE-HCTZ Inactive INNOPRAN XL 120 MG ORAL CAPSULE EXTENDED RELEASE 24 HO UR Take one by mouth daily INNOPRAN XL 120 MG ORAL CAPSULE EXTENDED RELEASE 24 HOUR PROPRANOLOL HCL SR BEADS Inactive PROMETHAZINE HCL 25 MG ORAL TABLET 1 Q. 4 hr. PRN 2013 PROMETHAZINE HCL 25 MG ORAL TABLET 308139 PROMETHAZINE HCL Inactive POTASSIUM CHLORIDE 20 MEQ ORAL PACKET by mouth twice a day prn 2 POTASSIUM CHLORIDE 20 MEQ ORAL PACKET 9459207 POTASSIUM CHLORIDE Inactive PHENADOZ 25 MG RECTAL SUPPOSITORY 1 every 4 hrs. PRN 2 PHENADOZ 25 MG RECTAL SUPPOSITORY 173507 PROMETHAZINE HCL Inactive ZOFRAN 8 MG ORAL TABLET 1 tab by mouth every 12 hours prn 4 ZOFRAN 8 MG ORAL TABLET 292900 ONDANSETRON HCL Inactive OMEPRAZOLE 20 MG ORAL CAPSULE DELAYED RELEASE 1 tablet by mo uth daily for GERD OMEPRAZOLE 20 MG ORAL CAPSULE DELAYED RELEASE 19 8051 OMEPRAZOLE Inactive CYCLOBENZAPRINE HCL 10 MG ORAL TABLET 1 tablet by mout h three times daily as needed for headaches CYCLOBENZAPRINE HCL 10 MG ORAL TABLET 006109 CYCLOBENZAPRINE HCL Inactive VITAMIN D3 4000 IU 1 tab 3 times daily VITAMIN D3 4000 IU Inactive PROPRANOLOL HCL 80 MG ORAL TABLET 1 tab tue. and thur. PROPRANOLOL HCL 80 MG ORAL TABLET 142608 PROPRANOLOL HCL Inacti ve CYANOCOBALAMIN 1000 MCG/ML INJECTION SOLUTION 1 injection ev ruben 2 weeks CYANOCOBALAMIN 1000 MCG/ML INJECTION SOLUTION 30 9594 CYANOCOBALAMIN Inactive MAGNESIUM GLUCONATE 250 MG ORAL TABLET 1 tab tid 20 23/10/23 MAGNESIUM GLUCONATE 250 MG ORAL TABLET 629600 MAGNESIUM GLUCONATE Inactive LOMOTIL 2.5-0.025 MG ORAL TABLET 1 tab by mouth prn 20 23/10/23 LOMOTIL 2.5-0.025 MG ORAL TABLET 7366848 DIPHENOXYLATE-ATROPINE Inac tive FLORANEX ORAL PACKET 1 pack three times daily, for bowel health FLORANEX ORAL PACKET LACTOBACILLUS Inactive IRON 325 (65 Fe) MG ORAL TABLET 1 every other day 2015 IRON 325 (65 Fe) MG ORAL TABLET 783561 FERROUS SULFATE Inactive FLAGYL 500 MG ORAL TABLET 1 pill by mouth three times daily, for diarrhea FLAGYL 500 MG ORAL TABLET 639370 METRONIDAZOLE I nactive BACTRIM DS 800-160 MG ORAL TABLET 1 pill by mouth twice claudio y, for UTI BACTRIM DS 800-160 MG ORAL TABLET 348913 SULFAMETHOXAZOLE-TRIMETHOPRIM Inactive Advance Directives Directive Description Start [...] 11 .0-15.0 platelet count 157 THOUSAND/UL 10*3/mm3 468-812 3869/04/20 mean platelet volume 8.9 fL 7.5-12.5 Lab Report: CEA - Serology carcinoembryonic antigen 0.9 ng/mL Encounters Code Encounter Date Provider Facility CPT-93683 Level 2 Est. Patient 14:27:16 GLASS CYLINDER FLANGER Kylie Lund [facility] CPT-12881 Level 3 Est. Patient 17:54:48 CDT Kylie Lund [facility] CPT-13369 Level 3 Est. Patient 16:26:30 CDT Kina blackmon [facility] CPT-56340 Level 3 New Patient 16:22:01 GLASS CYLINDER FLANGER Adam Yates MD [facility] CPT-19399 Level 4 Est. Patient 17:00:48 CDT Kylie Lund [facility] CPT-14297 Level 3 Est. Patient 13:15:54 CDT Kylie Lund [facility] CPT-69246 Level 3 Est. Patient 09:10:11 CDT Kylie Lund [facility] CPT-35668 Level 4 Est. Patient 12:08:30 GLASS CYLINDER FLANGER Hope cohn MD PhD [facility] CPT-89778 Level 4 Est. Patient 19:08:42 GLASS CYLINDER FLANGER Hope cohn MD PhD [facility] CPT-49095 Level 4 Est. Patient 20:04:51 CDT Hope cohn MD PhD [facility] CPT-09010 Level 3 New Patient 01:46:11 GLASS CYLINDER FLANGER Hope landers MD PhD [facility] Procedures Code Procedure Name Date Entry Date Standard Desc ription CPT-81997 Microalbumin - LAB USE ONLY 09:41:32 GLASS CYLINDER FLANGER 20 23/01/15 CPT-53426 Free T4 - LAB USE ONLY 09:41:32 GLASS CYLINDER FLANGER CPT-89875 TSH - LAB USE ONLY 09:41:32 GLASS CYLINDER FLANGER CPT-92728 BMP - LAB USE ONLY 09:41:32 GLASS CYLINDER FLANGER CPT-68502 Venipuncture Draw Fee 09:41:32 GLASS CYLINDER FLANGER CPT-23517 First Vx - Ix admin for Medicare patients 11:19:30 CDT CPT-12291 Fluzone High-Dose Intramuscular Suspension 12/07 11:19:30 CDT CPT-J0897 Prolia 60 mg 14:55:42 CDT CPT-00300 Abx/Therapy Injection 14:55:42 CDT CPT-54503 Bone Density - XRAY USE ONLY 10:27:12 CDT 2 CPT-G0439 [facility] Annual Wellness Exam 17:54:53 CDT CPT-67911 Foot, left, comp min 3V - XRAY USE ONLY 12:22:49 CDT CPT-G0009 Administration of Pneumococcal Vaccine 3 12:18:00 CDT CPT-65107 Pneumovax 23 Injection Injectable 25 MCG /0.5ML 12:18:00 CDT CPT-J0897 Prolia 60 mg 14:14:16 GLASS CYLINDER FLANGER CPT-23905 Abx/Therapy Injection 14:14:15 GLASS CYLINDER FLANGER CPT-95995 Lipid - LAB USE ONLY 10:01:52 GLASS CYLINDER FLANGER 2 CPT-43942 Calcium - LAB USE ONLY 10:01:51 GLASS CYLINDER FLANGER CPT-57247 Venipuncture Draw Fee 10:01:51 GLASS CYLINDER FLANGER CPT-LR Lesion Removal 16:22:01 GLASS CYLINDER FLANGER CPT-55003 TSH - LAB USE ONLY 14:26:02 CDT CPT-26744 CMP - LAB USE ONLY 14:26:01 CDT CPT-38773 CBC with Diff - LAB USE ONLY 14:26:01 CDT 2 CPT-70564 Venipuncture Draw Fee 14:26:01 CDT CPT-63893 First Vx - Ix admin for Medicare patients 13:27:08 CDT CPT-84294 Fluzone High-Dose Intramuscular Suspension 11/26 13:27:08 CDT CPT-G0438 Initial Annual Wellness Exam 14:19:57 CD T CPT-G0009 Administration of Pneumococcal Vaccine 9 11:36:25 CDT CPT-09958 Prevnar 13 Intramuscular Suspension 1 1:36:25 CDT CPT-40649 Prevnar 13 Intramuscular Suspension 1 0:40:58 CDT CPT-J0897 Prolia 60 mg 10:37:16 CDT CPT-46093 Abx/Therapy Injection 10:37:16 CDT CPT-J0897 Prolia 60 mg 16:09:34 GLASS CYLINDER FLANGER CPT-J0897 Prolia 60 mg 11:10:35 GLASS CYLINDER FLANGER CPT-73213 Abx/Therapy Injection 11:10:35 GLASS CYLINDER FLANGER CPT-000 Give Appropriate Flu Vaccine 17:01:15 GLASS CYLINDER FLANGER 2 CPT-51728 Fluzone High Dose (65+) 15:03:08 GLASS CYLINDER FLANGER 02/15 CPT-90477 Immunization Single Admin 15:03:08 GLASS CYLINDER FLANGER 2014 CPT-OV Office Visit 15:58:06 CDT CPT-J0897 Prolia 60 mg 08:45:38 CDT CPT-00545 Abx/Therapy Injection 08:45:38 CDT CPT-J3420 Vitamin B12 1000mcg (Cyanocobalamin) 09:26:20 GLASS CYLINDER FLANGER CPT-42813 Abx/Therapy Injection 09:26:20 GLASS CYLINDER FLANGER CPT-J3420 Vitamin B12 1000mcg (Cyanocobalamin) 09:44:40 GLASS CYLINDER FLANGER CPT-01564 Abx/Therapy Injection 09:44:40 GLASS CYLINDER FLANGER CPT-J3420 Vitamin B12 1000mcg (Cyanocobalamin) 09:15:54 GLASS CYLINDER FLANGER CPT-57906 Abx/Therapy Injection 09:15:54 GLASS CYLINDER FLANGER CPT-J3420 Vitamin B12 1000mcg (Cyanocobalamin) 09:46:44 GLASS CYLINDER FLANGER CPT-27682 Abx/Therapy Injection 09:46:44 GLASS CYLINDER FLANGER CPT-J3420 Vitamin B12 1000mcg (Cyanocobalamin) 09:47:34 GLASS CYLINDER FLANGER CPT-31695 Abx/Therapy Injection 09:47:34 GLASS CYLINDER FLANGER CPT-J3420 Vitamin B12 1000mcg (Cyanocobalamin) 14:35:50 GLASS CYLINDER FLANGER CPT-J3420 Vitamin B12 1000mcg (Cyanocobalamin) 09:25:05 GLASS CYLINDER FLANGER CPT-02910 Abx/Therapy Injection 09:25:05 GLASS CYLINDER FLANGER CPT-G0008 Administration of Influenza Virus Vaccine 13:36:47 CDT CPT-90807 Fluzone High-Dose Intramuscular Suspension 11/15 13:36:47 CDT CPT-J0897 Prolia 60 mg 08:50:41 CDT CPT-95810 Abx/Therapy Injection 08:50:41 CDT CPT-35639 Bone Density 12:06:12 CDT CPT-44854 Bone Density 08:54:40 CDT CPT-OV Office Visit 15:37:02 CDT CPT-74070 Postop F/U Visit 15:47:49 CDT CPT-66363 Postop F/U Visit 15:21:02 CDT CPT-[facility] Transitional Care Mgmt-High 07:52:27 CDT 20 20/06/01 CPT-23929 Venipuncture Draw Fee 13:51:18 CDT CPT-35848 Venipuncture Draw Fee 10:14:55 GLASS CYLINDER FLANGER CPT-11552 Venipuncture Draw Fee 13:39:45 GLASS CYLINDER FLANGER CPT-OV Office Visit 15:11:22 GLASS CYLINDER FLANGER CPT-95308 Venipuncture Draw Fee 09:20:49 GLASS CYLINDER FLANGER CPT-68954 Venipuncture Draw Fee 16:52:15 GLASS CYLINDER FLANGER CPT-90886 Venipuncture Draw Fee 10:37:24 GLASS CYLINDER FLANGER CPT-82429 Venipuncture Draw Fee 08:21:21 GLASS CYLINDER FLANGER CPT-05121 Venipuncture Draw Fee 08:30:20 GLASS CYLINDER FLANGER CPT-10968 Venipuncture Draw Fee 14:53:21 GLASS CYLINDER FLANGER CPT-88940 Venipuncture Draw Fee 09:40:56 GLASS CYLINDER FLANGER CPT-50380 Venipuncture Draw Fee 10:30:47 GLASS CYLINDER FLANGER CPT-72487 Venipuncture Draw Fee 10:46:17 GLASS CYLINDER FLANGER CPT-48245 Venipuncture Draw Fee 11:12:45 GLASS CYLINDER FLANGER CPT-31796 Venipuncture Draw Fee 09:53:33 GLASS CYLINDER FLANGER CPT-75947 Venipuncture Draw Fee 11:53:51 GLASS CYLINDER FLANGER CPT-81470 Venipuncture Draw Fee 10:33:50 GLASS CYLINDER FLANGER CPT-72835 Venipuncture Draw Fee 10:05:01 GLASS CYLINDER FLANGER CPT-87284 Venipuncture Draw Fee 14:32:52 GLASS CYLINDER FLANGER CPT-91025 Venipuncture Draw Fee 09:46:13 GLASS CYLINDER FLANGER CPT-26513 Venipuncture Draw Fee 11:34:27 GLASS CYLINDER FLANGER CPT-73047 Venipuncture Draw Fee 13:17:16 GLASS CYLINDER FLANGER CPT-64836 Venipuncture Draw Fee 12:05:39 CDT CPT-02652 Venipuncture Draw Fee 12:49:12 CDT CPT-58625 Venipuncture Draw Fee 12:37:18 CDT CPT-51120 Venipuncture Draw Fee 10:57:11 CDT CPT-78428 Venipuncture Draw Fee 13:47:40 CDT CPT-24727 Venipuncture Draw Fee 10:02:17 CDT CPT-93168 TB Tubersol 17:32:32 CDT CPT-OV Office Visit 16:21:53 CDT CPT-OV Office Visit 15:49:22 CDT CPT-OV Office Visit 17:16:31 CDT CPT-OV Office Visit 10:43:31 CDT
--- OUTSIDE RECORDS SUMMARY | 2019-02-09 12:56 | XMS REPORT | Clinical Summary ---
Author Author Renaldo, Florecita Munoz Organization [facility] [employer] Address Unknown Phone Unavailable Allergies, Adverse Reactions, [...] PhD Hyperpotassemia GERD 530.81 Resolved Kylie Yokum SPORTS DIRECTOR Esophageal reflux Health maintenance exam V70.0 Resolved Adolfo Yates MD Routine general medical examination at a health care facility Anemia 285.9 Resolved Kylie Yanet SPORTS DIRECTOR Anemia, unspecified Personal history of malignant neoplasm of large intestine V10.05 Active Adam Yates MD Personal history of malignant neoplasm of large intestine Hypomagnesemia 275.2 Resolved Kylie Yanet SPORTS DIRECTOR Disorders of magnesium metabolism Weakness 780.79 [...] Sebaceous cyst, scalp 706.2 Resolved Kylie Yokum SPORTS DIRECTOR Sebaceous cyst Cervical lymphadenopathy, anterior, left 785.6 Resolv ed Kylie Yokum SPORTS DIRECTOR Enlargement of lymph nodes Need for prophylactic vaccination and inoculation against in fluenza V04.81 Resolved Adam Yates MD Need for prophylactic vaccination and inoculation against influenza Preventive health care V70.0 Active Kylie Yokum SPORTS DIRECTOR Routine general medical examination at a health care facility Thyroid nodule, left 241.0 Active Kylie Yokum A PRN Nontoxic uninodular goiter Screening mammogram V76.12 Active Kylie Yogabbium AP RN Other screening mammogram Mandy 706.2 Resolved Kylie Yokum SPORTS DIRECTOR Sebaceous cyst Colon cancer, ascending 153.6 Resolved Kylie Yok um SPORTS DIRECTOR Malignant neoplasm of ascending colon Foot pain, left 729.5 Active Sulema Naff AU PAIR Pain in limb Splinter 919.6 Active Kylie Yokum SPORTS DIRECTOR Superficial foreign body (splinter) of other, multiple, and unspecified sites, without major open wound and without mention of infection ABDOMINAL PAIN, RIGHT LOWER QUADRANT ICD-789.03 Inactive Kina Joshua SPORTS DIRECTOR ADENOCARCINOMA, COLON, 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 Dick Yates MD ABDOMINAL PAIN, GENERALIZED ICD-789.07 Inactive Hope Benavidez MD PhD FEVER UNSPECIFIED ICD-780.60 Inactive Hope cohn MD PhD UNSPECIFIED VENOUS INSUFFICIENCY ICD-459.81 Elda ctive Adam Yates MD ADENOCARCINOMA, 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 Inac tive Hope Benavidez MD PhD Hyperkalemia ICD-276.7 Inactive Hope Benavidez MD PhD GERD ICD-530.81 Inactive Kylie Hlot SPORTS DIRECTOR 2015 Health maintenance exam ICD-V70.0 Inactive Adolfo Yates MD Anemia ICD-285.9 Inactive Kylie Holt SPORTS DIRECTOR 07/24 Hypomagnesemia ICD-275.2 Inactive Kylie Holt SPORTS DIRECTOR Weakness ICD-780.79 Inactive Hope Benavidez MD [...] Sebaceous cyst, scalp ICD-706.2 Inactive Tracy Holt SPORTS DIRECTOR Cervical lymphadenopathy, anterior, left ICD-785.6 Inactive Kylie Holt SPORTS DIRECTOR Need for prophylactic vaccination and inoculation against in fluenza ICD-V04.81 Inactive Adam Yates MD Mandy ICD-706.2 Inactive Kylie Holt SPORTS DIRECTOR 07/20 Colon cancer, ascending ICD-153.6 Inactive Gabbi Holt SPORTS DIRECTOR Medication List Medication Instructions Start Date Stop Date Generic Name NDC Status Provider Patient Instruction COQ10 100 MG ORAL CAPS 1 daily COENZYME Q10 084080171 20 Active LETY Nation Active VITAMIN D3 2000 UNIT ORAL CAPS Melaleuca-One daily CHOLECALCIFEROL 46442202897 Active Kylie Holt APRN Active PROBIOTIC DAILY ORAL CAPS Take one daily PROBIOTIC PRODUCT 92910300311 Active Kylie Holt APRN Active IRON 325 (65 FE) MG TABS 1 every other day FERR OUS SULFATE 07863049543 No Longer Active Kylie Holt APRN Active FLORANEX PACK 1 pack three times daily, for bowel health LACTOBACILLUS 11313780223 No Longer Active Kylie Holt APRN Active LOMOTIL 2.5-0.025 MG TABS 1 tab by mouth prn 4 DIPHENOXYLATE-ATROPINE 35050257122 No Longer Active Kylie Holt APRN Active MAGNESIUM GLUCONATE 250 MG TABS 1 tab tid 4 MAGNESIUM GLUCONATE 17597090398 No Longer Active Kylie Holt APRN Active CYANOCOBALAMIN 1000 MCG/ML INJ SOLN 1 injection every 2 weeks 20 20/01/03 CYANOCOBALAMIN 96634798580 No Longer Active Kylie Holt APRN Active ATENOLOL 25 MG ORAL TABS 1/2 pill by mouth daily, for headac hes, blood pressure ATENOLOL 09001155972 Active Kylieshubham Holt APRN Active PROPRANOLOL HCL 80 MG TABS 1 tab tue. and thur. 04/10 PROPRANOLOL HCL 62127020475 No Longer Active Hope Benavidez MD PhD A ctive VITAMIN D3 4000 IU 1 tab 3 times daily VITAMIN D3 4000 IU No Longer Active Hope Benavidez MD PhD Active BACTRIM DS 800-160 MG TABS 1 pill by mouth twice daily, for UTI SULFAMETHOXAZOLE-TRIMETHOPRIM 90231209943 No Longer Active A attila Benavidez MD PhD Active PROLIA 60 MG/ML SOLN 1 shot every 6 months for osteoprosis DENOSUMAB 75487311739 Active Hope Benavidez MD PhD Active CALCIUM + D + K 750-500-40 MG-UNT-MCG TABS 1 tab by mouth tw ice daily CALCIUM-VITAMIN D-VITAMIN K 47945811623 Active Hope landers MD PhD Active DAILY VALUE MULTIVITAMIN TABS 1 tab by mouth twice daily MULTIPLE VITAMIN 42717900741 Active Hope Benavidez MD PhD Active FISH OIL 306 MG CAPS 1 tab by mouth three times daily OMEGA-3 FATTY ACIDS 65618931215 Active Hope Benavidez MD PhD Active LUTEIN 10 MG TABS 1 tab daily LUTEIN 99854143141 Act cash Hope Benavidez MD PhD Active TRIAMTERENE-HCTZ 37.5-25 MG TABS 1 tab by mouth daily TRIAMTERENE-HCTZ 18158708812 Active Kylie Holt APRN Active CYCLOBENZAPRINE HCL 10 MG TABS 1 tablet by mouth three times daily as needed for headaches CYCLOBENZAPRINE HCL 68488561879 No Longe r Active Adam Yates MD Active OMEPRAZOLE 20 MG CPDR 1 tablet by mouth daily for GERD OMEPRAZOLE 60018870892 No Longer Active Adam Yates MD A ctive ZOFRAN 8 MG TABS 1 tab by mouth every 12 hours prn 201 05/16/09 ONDANSETRON HCL 55176680777 No Longer Active Adam Yates MD Active PHENADOZ 25 MG SUPP 1 every 4 hrs. PRN PROMETHA ZINE HCL 76026838839 No Longer Active Adam Yates MD Active POTASSIUM CHLORIDE 20 MEQ PACK by mouth twice a day prn POTASSIUM CHLORIDE 14065487711 No Longer Active Adam Yates MD Active PROMETHAZINE HCL 25 MG TABS 1 Q. 4 hr. PRN PROM ETHAZINE HCL 70264108024 No Longer Active Adam Yates MD Active INNOPRAN XL 120 MG [id number] Take one by mouth daily 2 PROPRANOLOL HCL SR BEADS 44897362190 No Longer Active Adam Yates MD A ctive FLAGYL 500 MG TABS 1 pill by mouth three times daily, for diarrh ea METRONIDAZOLE 28456133621 No Longer Active Hope Benavidez MD PhD Active DYAZIDE 37.5-25 MG CAPS 1 qd TRIAMTERENE-HC TZ 84412465550 No Longer Active Hope Benavidez MD PhD Active PROZAC 20 MG CAPS 1 q d FLUOXETINE HCL 80621 272395 No Longer Active Hope Benavidez MD PhD Active SIMVASTATIN 40 MG TABS 1 qd SIMVASTATIN 004 90599043 No Longer Active Adam Yates MD Active MELOXICAM 15 MG TABS 1 qd MELOXICAM 2702914 9597 No Longer Active Adam Yates MD Active IMODIUM A-D 2 MG TABS 2 onset at diarrhea and prn. LOPERAMIDE HCL 23870839503 Active Hope Benavidez MD PhD Active EXCEDRIN EXTRA STRENGTH 250-250-65 MG TABS 1-2 q6h PRN headache 201 04/16/21 [id number] 38488864280 Active Hope Benavidez MD PhD Active FLAGYL 500 MG TABS 1 qid METRONIDAZOLE 31348 108023 No Longer Active Adam Yates MD Active LEVAQUIN 750 MG TABS 1 qd LEVOFLOXACIN 5486 7252210 No Longer Active Adam Yates MD Active ADULT ASPIRIN LOW STRENGTH 81 MG TBDP 1 qd A SPIRIN 59605541928 Active Hope Benavidez MD PhD Active LEVAQUIN 750 MG TABS 1 qd LEVAQUIN 750 MG T ABS 290218 LEVOFLOXACIN Inactive FLAGYL 500 MG TABS 1 qid FLAGYL 500 MG TABS 400606 METRONIDAZOLE Inactive MELOXICAM 15 MG TABS 1 qd MELOXICAM 15 MG T ABS 146546 MELOXICAM Inactive SIMVASTATIN 40 MG TABS 1 qd SIMVASTATIN 40 MG TABS 597712 SIMVASTATIN Inactive PROZAC 20 MG CAPS 1 q d PROZAC 20 MG CAPS 31 0385 FLUOXETINE HCL Inactive DYAZIDE 37.5-25 MG CAPS 1 qd DYAZIDE 37.5 -25 MG CAPS 246393 TRIAMTERENE-HCTZ Inactive INNOPRAN XL 120 MG [id number] Take one by mouth daily 2 INNOPRAN XL 120 MG [id number] PROPRANOLOL HCL SR BEADS Inactive PROMETHAZINE HCL 25 MG TABS 1 Q. 4 hr. PRN PROMETHAZINE HCL 25 MG TABS 547303 PROMETHAZINE HCL Inactive POTASSIUM CHLORIDE 20 MEQ PACK by mouth twice a day prn POTASSIUM CHLORIDE 20 MEQ PACK 7854981 POTASSIUM CHLORIDE Inactive PHENADOZ 25 MG SUPP 1 every 4 hrs. PRN PHENADOZ 2 5 MG SUPP 065928 PROMETHAZINE HCL Inactive ZOFRAN 8 MG TABS 1 tab by mouth every 12 hours prn 201 05/16/09 ZOFRAN 8 MG TABS 600619 ONDANSETRON HCL Inactive OMEPRAZOLE 20 MG CPDR 1 tablet by mouth daily for GERD OMEPRAZOLE 20 MG CPDR 289394 OMEPRAZOLE Inactive CYCLOBENZAPRINE HCL 10 MG TABS 1 tablet by mouth three times daily as needed for headaches CYCLOBENZAPRINE HCL 10 MG TABS 462409 CYCLOBENZAPRINE HCL Inactive VITAMIN D3 4000 IU 1 tab 3 times daily VITAMIN D3 4000 IU Inactive PROPRANOLOL HCL 80 MG TABS 1 tab tue. and thur. 04/10 PROPRANOLOL HCL 80 MG TABS 635747 PROPRANOLOL HCL Inactive CYANOCOBALAMIN 1000 MCG/ML INJ SOLN 1 injection every 2 weeks 20 20/01/03 CYANOCOBALAMIN 1000 MCG/ML INJ SOLN 634390 CYANOCOBALAM IN Inactive MAGNESIUM GLUCONATE 250 MG TABS 1 tab tid 4 MAGNESIUM GLUCONATE 250 MG TABS 245754 MAGNESIUM GLUCONATE Inactive LOMOTIL 2.5-0.025 MG TABS 1 tab by mouth prn 4 LOMOTIL 2.5- 0.025 MG TABS 6412657 DIPHENOXYLATE-ATROPINE Inactive FLORANEX PACK 1 pack three times daily, for bowel health FLORANEX PACK LACTOBACILLUS Inactive IRON 325 (65 FE) MG TABS 1 every other day IRON 325 (65 FE) MG TABS 665845 FERROUS SULFATE Inactive FLAGYL 500 MG TABS 1 pill by mouth three times daily, for diarrh ea FLAGYL 500 MG TABS 471510 METRONIDAZOLE Inactive BACTRIM DS 800-160 MG TABS 1 pill by mouth twice daily, for UTI BACTRIM DS 800-160 MG TABS 722753 SULFAMETHOXAZOLE-TRIM ETHOPRIM Inactive Advance Directives Directive Description [...] 11 .0-15.0 platelet count 157 THOUSAND/UL 10*3/mm3 493-062 1405/04/20 mean platelet volume 8.9 fL 7.5-12.5 Lab Report: CBC W/DIFF, Comp. Metabolic Panel, Thyroid Stimulating Hormo ... - Chemistry sodium, serum 139 mmol/L 734-639 7624/10/20 carbon dioxide, venous blood 32.2 mmol/L 21.0-32 [...] - Chemi stry cholesterol, serum 200 mg/dL 578-513 2406/11/22 triglyceride, serum, fasting 129 mg/dL 30-200 HDL cholesterol, serum 56 mg/dL 32-96 LDL cholesterol, serum 118 mg/dL 0-130 calcium, serum 9.0 mg/dL 8.5-10.1 Lab Report: MicroAlb Random w/creat/6517 - Urinalysis microalbumin/total urine volume 8 mg/L Units converted. See lab report for original value. microalbumin/creatinine ratio, urine 15 MCG/MG CREAT mg/L <30 Encounters Code Encounter Date Provider Facility CPT-27039 Level 3 Est. Patient 17:54:48 CDT Kylie boyd [facility] CPT-61394 Level 3 Est. Patient 16:26:30 CDT Kina blackmon [facility] CPT-62040 Level 3 New Patient 16:22:01 COMMUNITY HEALTH EDUCATION COORDINATOR Adam Yates MD [facility] CPT-63737 Level 4 Est. Patient 17:00:48 CDT Kylie Lund [facility] CPT-83114 Level 3 Est. Patient 13:15:54 CDT Kylie Lund [facility] CPT-54589 Level 3 Est. Patient 09:10:11 CDT Kylie Kevon [facility] CPT-00450 Level 4 Est. Patient 12:08:30 COMMUNITY HEALTH EDUCATION COORDINATOR Hope cohn MD [facility] CPT-68639 Level 4 Est. Patient 19:08:42 COMMUNITY HEALTH EDUCATION COORDINATOR Hope cohn MD [facility] CPT-27587 Level 4 Est. Patient 20:04:51 CDT Hope cohn MD [facility] CPT-09935 Level 3 New Patient 01:46:11 COMMUNITY HEALTH EDUCATION COORDINATOR Hope landers MD [facility] Procedures Code Procedure Name Date Entry Date Standard Desc ription CPT-G0439 [facility] Annual Wellness Exam 17:54:53 CDT CPT-97809 Foot, left, comp min 3V - XRAY USE ONLY 12:22:49 CDT CPT-G0009 Administration of Pneumococcal Vaccine 3 12:18:00 CDT CPT-45394 Pneumovax 23 Injection Injectable 25 MCG /0.5ML 12:18:00 CDT CPT-J0897 Prolia 60 mg 14:14:16 COMMUNITY HEALTH EDUCATION COORDINATOR CPT-61288 Abx/Therapy Injection 14:14:15 COMMUNITY HEALTH EDUCATION COORDINATOR CPT-27225 Lipid - LAB USE ONLY 10:01:52 COMMUNITY HEALTH EDUCATION COORDINATOR 2 CPT-59651 Calcium - LAB USE ONLY 10:01:51 COMMUNITY HEALTH EDUCATION COORDINATOR CPT-80867 Venipuncture Draw Fee 10:01:51 COMMUNITY HEALTH EDUCATION COORDINATOR CPT-LR Lesion Removal 16:22:01 COMMUNITY HEALTH EDUCATION COORDINATOR CPT-64686 TSH - LAB USE ONLY 14:26:02 CDT CPT-13902 CMP - LAB USE ONLY 14:26:01 CDT CPT-40035 CBC with Diff - LAB USE ONLY 14:26:01 CDT 2 CPT-80286 Venipuncture Draw Fee 14:26:01 CDT CPT-48954 First Vx - Ix admin for Medicare patients 13:27:08 CDT CPT-00808 Fluzone High-Dose Intramuscular Suspension 11/26 13:27:08 CDT CPT-G0438 Initial Annual Wellness Exam 14:19:57 CD T CPT-G0009 Administration of Pneumococcal Vaccine 9 11:36:25 CDT CPT-78570 Prevnar 13 Intramuscular Suspension 1 1:36:25 CDT CPT-15760 Prevnar 13 Intramuscular Suspension 1 0:40:58 CDT CPT-J0897 Prolia 60 mg 10:37:16 CDT CPT-51901 Abx/Therapy Injection 10:37:16 CDT CPT-J0897 Prolia 60 mg 16:09:34 COMMUNITY HEALTH EDUCATION COORDINATOR CPT-J0897 Prolia 60 mg 11:10:35 COMMUNITY HEALTH EDUCATION COORDINATOR CPT-12751 Abx/Therapy Injection 11:10:35 COMMUNITY HEALTH EDUCATION COORDINATOR CPT-000 Give Appropriate Flu Vaccine 17:01:15 COMMUNITY HEALTH EDUCATION COORDINATOR 2 CPT-38745 Fluzone High Dose (65+) 15:03:08 COMMUNITY HEALTH EDUCATION COORDINATOR 02/15 CPT-11102 Immunization Single Admin 15:03:08 COMMUNITY HEALTH EDUCATION COORDINATOR 2014 CPT-OV Office Visit 15:58:06 CDT CPT-J0897 Prolia 60 mg 08:45:38 CDT CPT-60236 Abx/Therapy Injection 08:45:38 CDT CPT-J3420 Vitamin B12 1000mcg (Cyanocobalamin) 09:26:20 COMMUNITY HEALTH EDUCATION COORDINATOR CPT-02804 Abx/Therapy Injection 09:26:20 COMMUNITY HEALTH EDUCATION COORDINATOR CPT-J3420 Vitamin B12 1000mcg (Cyanocobalamin) 09:44:40 COMMUNITY HEALTH EDUCATION COORDINATOR CPT-93817 Abx/Therapy Injection 09:44:40 COMMUNITY HEALTH EDUCATION COORDINATOR CPT-J3420 Vitamin B12 1000mcg (Cyanocobalamin) 09:15:54 COMMUNITY HEALTH EDUCATION COORDINATOR CPT-83190 Abx/Therapy Injection 09:15:54 COMMUNITY HEALTH EDUCATION COORDINATOR CPT-J3420 Vitamin B12 1000mcg (Cyanocobalamin) 09:46:44 COMMUNITY HEALTH EDUCATION COORDINATOR CPT-99535 Abx/Therapy Injection 09:46:44 COMMUNITY HEALTH EDUCATION COORDINATOR CPT-J3420 Vitamin B12 1000mcg (Cyanocobalamin) 09:47:34 COMMUNITY HEALTH EDUCATION COORDINATOR CPT-06467 Abx/Therapy Injection 09:47:34 COMMUNITY HEALTH EDUCATION COORDINATOR CPT-J3420 Vitamin B12 1000mcg (Cyanocobalamin) 14:35:50 COMMUNITY HEALTH EDUCATION COORDINATOR CPT-J3420 Vitamin B12 1000mcg (Cyanocobalamin) 09:25:05 COMMUNITY HEALTH EDUCATION COORDINATOR CPT-02777 Abx/Therapy Injection 09:25:05 COMMUNITY HEALTH EDUCATION COORDINATOR CPT-G0008 Administration of Influenza Virus Vaccine 13:36:47 CDT CPT-24533 Fluzone High-Dose Intramuscular Suspension 11/15 13:36:47 CDT CPT-J0897 Prolia 60 mg 08:50:41 CDT CPT-58789 Abx/Therapy Injection 08:50:41 CDT CPT-55214 Bone Density 12:06:12 CDT CPT-41201 Bone Density 08:54:40 CDT CPT-OV Office Visit 15:37:02 CDT CPT-52577 Postop F/U Visit 15:47:49 CDT CPT-69537 Postop F/U Visit 15:21:02 CDT [facility] Transitional Care Mgmt-High 07:52:27 CDT 20 20/06/01 CPT-13112 Venipuncture Draw Fee 13:51:18 CDT CPT-04732 Venipuncture Draw Fee 10:14:55 COMMUNITY HEALTH EDUCATION COORDINATOR CPT-77797 Venipuncture Draw Fee 13:39:45 COMMUNITY HEALTH EDUCATION COORDINATOR CPT-OV Office Visit 15:11:22 COMMUNITY HEALTH EDUCATION COORDINATOR CPT-24724 Venipuncture Draw Fee 09:20:49 COMMUNITY HEALTH EDUCATION COORDINATOR CPT-51481 Venipuncture Draw Fee 16:52:15 COMMUNITY HEALTH EDUCATION COORDINATOR CPT-82980 Venipuncture Draw Fee 10:37:24 COMMUNITY HEALTH EDUCATION COORDINATOR CPT-31681 Venipuncture Draw Fee 08:21:21 COMMUNITY HEALTH EDUCATION COORDINATOR CPT-26201 Venipuncture Draw Fee 08:30:20 COMMUNITY HEALTH EDUCATION COORDINATOR CPT-02760 Venipuncture Draw Fee 14:53:21 COMMUNITY HEALTH EDUCATION COORDINATOR CPT-22600 Venipuncture Draw Fee 09:40:56 COMMUNITY HEALTH EDUCATION COORDINATOR CPT-51674 Venipuncture Draw Fee 10:30:47 COMMUNITY HEALTH EDUCATION COORDINATOR CPT-42868 Venipuncture Draw Fee 10:46:17 COMMUNITY HEALTH EDUCATION COORDINATOR CPT-25567 Venipuncture Draw Fee 11:12:45 COMMUNITY HEALTH EDUCATION COORDINATOR CPT-75801 Venipuncture Draw Fee 09:53:33 COMMUNITY HEALTH EDUCATION COORDINATOR CPT-06074 Venipuncture Draw Fee 11:53:51 COMMUNITY HEALTH EDUCATION COORDINATOR CPT-81592 Venipuncture Draw Fee 10:33:50 COMMUNITY HEALTH EDUCATION COORDINATOR CPT-66561 Venipuncture Draw Fee 10:05:01 COMMUNITY HEALTH EDUCATION COORDINATOR CPT-63383 Venipuncture Draw Fee 14:32:52 COMMUNITY HEALTH EDUCATION COORDINATOR CPT-91437 Venipuncture Draw Fee 09:46:13 COMMUNITY HEALTH EDUCATION COORDINATOR CPT-70302 Venipuncture Draw Fee 11:34:27 COMMUNITY HEALTH EDUCATION COORDINATOR CPT-65916 Venipuncture Draw Fee 13:17:16 COMMUNITY HEALTH EDUCATION COORDINATOR CPT-81262 Venipuncture Draw Fee 12:05:39 CDT CPT-91552 Venipuncture Draw Fee 12:49:12 CDT CPT-22370 Venipuncture Draw Fee 12:37:18 CDT CPT-96042 Venipuncture Draw Fee 10:57:11 CDT CPT-79186 Venipuncture Draw Fee 13:47:40 CDT CPT-70510 Venipuncture Draw Fee 10:02:17 CDT CPT-73981 TB Tubersol 17:32:32 CDT CPT-OV Office Visit 16:21:53 CDT CPT-OV Office Visit 15:49:22 CDT CPT-OV Office Visit 17:16:31 CDT CPT-OV Office Visit 10:43:31 CDT
--- OUTSIDE RECORDS SUMMARY | 2019-02-09 12:56 | XMS REPORT | Clinical Summary ---
Author Author Renaldo, Florecita Munoz Organization [facility] Address Unknown Phone Unavailable Allergies, Adverse Reactions, [...] health care facility Anemia 285.9 Active Adam aYtes MD Anemia, unspecified Personal history of malignant [...] Sebaceous cyst, scalp 706.2 Resolved Kylie Holt FURNITURE DELIVERY DRIVER Sebaceous cyst Cervical lymphadenopathy, anterior, left 785.6 Active Kylie Lundoliver FURNITURE DELIVERY DRIVER Enlargement of lymph nodes Need for prophylactic vaccination and inoculation against in fluenza V04.81 Active Citlaly Watkins RMA Need for prophylactic vaccination and inoculation against influenza ABDOMINAL PAIN, RIGHT LOWER QUADRANT ICD-789.03 Inactive Kina Tres FURNITURE DELIVERY DRIVER ADENOCARCINOMA, COLON, 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 Dick Yates MD ABDOMINAL PAIN, GENERALIZED ICD-789.07 Inactive Hope Benavidez MD PhD FEVER UNSPECIFIED ICD-780.60 Inactive Hope cohn MD PhD UNSPECIFIED VENOUS INSUFFICIENCY ICD-459.81 [place] ctive Adam Yates MD ADENOCARCINOMA, 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 Inac tive Hope Benavidez MD PhD Hyperkalemia ICD-276.7 Inactive Hope Benavidez MD PhD Health maintenance exam ICD-V70.0 Inactive Adolfo Yates MD Weakness ICD-780.79 Inactive Hope Benavidez MD P hD Aftercare following surgery of the teeth,oral cavity a nd digestive system, NEC ICD-V58.75 Inactive Adam Yates MD Colon cancer ICD-153.9 Inactive Adam luna MD Asymptomatic postmenopausal status (age-related) (natural) I CD-V49.81 Inactive Hope Benavidez MD PhD Dysuria ICD-788.1 Inactive Hope Benavidez MD PhD 201 05/19/01 Sebaceous cyst, scalp ICD-706.2 Inactive Tracy Lundum FURNITURE DELIVERY DRIVER Medication List Medication Instructions Start Date Stop Date Generic Name NDC Status Provider Patient Instruction VITAMIN D3 2000 UNIT ORAL CAPS [place]-One daily CHOLECALCIFEROL 51971427737 Active Kylie Lundum FURNITURE DELIVERY DRIVER Active PROBIOTIC DAILY ORAL CAPS Take one daily PROBIOTIC PRODUCT 74002872001 Active Kylie Lundum FURNITURE DELIVERY DRIVER Active IRON 325 (65 FE) MG TABS 1 every other day FERR OUS SULFATE 08086735030 No Longer Active Kylie Lundum FURNITURE DELIVERY DRIVER Active FLORANEX PACK 1 pack three times daily, for bowel health LACTOBACILLUS 29600778775 No Longer Active Kylie Lundum FURNITURE DELIVERY DRIVER Active LOMOTIL 2.5-0.025 MG TABS 1 tab by mouth prn 4 DIPHENOXYLATE-ATROPINE 74604002256 No Longer Active Kylieshubham Lundum FURNITURE DELIVERY DRIVER Active MAGNESIUM GLUCONATE 250 MG TABS 1 tab tid 4 MAGNESIUM GLUCONATE 79394903211 No Longer Active Kylie Lundum FURNITURE DELIVERY DRIVER Active CYANOCOBALAMIN 1000 MCG/ML INJ SOLN 1 injection every 2 weeks 20 20/01/03 CYANOCOBALAMIN 27205397709 No Longer Active Kylie Lundum FURNITURE DELIVERY DRIVER Active ATENOLOL 25 MG ORAL TABS 1/2 pill by mouth daily, for headac hes, blood pressure ATENOLOL 95290610682 Active Kylie Yokum FURNITURE DELIVERY DRIVER Active PROPRANOLOL HCL 80 MG TABS 1 tab tue. and thur. 04/10 PROPRANOLOL HCL 09031555864 No Longer Active Hope Benavidez MD PhD A ctive VITAMIN D3 4000 IU 1 tab 3 times daily VITAMIN D3 4000 IU No Longer Active Hope Benavidez MD PhD Active BACTRIM DS 800-160 MG TABS 1 pill by mouth twice daily, for UTI SULFAMETHOXAZOLE-TRIMETHOPRIM 46386533279 No Longer Active A attila Benavidez MD PhD Active PROLIA 60 MG/ML SOLN 1 shot every 6 months for osteoprosis DENOSUMAB 45304512013 Active Hope Benavidez MD PhD Active CALCIUM + D + K 750-500-40 MG-UNT-MCG TABS 1 tab by mouth tw ice daily CALCIUM-VITAMIN D-VITAMIN K 12062871504 Active Hope landers MD PhD Active DAILY VALUE MULTIVITAMIN TABS 1 tab by mouth twice daily MULTIPLE VITAMIN 93006694440 Active Hope Benavidez MD PhD Active FISH OIL 306 MG CAPS 1 tab by mouth three times daily OMEGA-3 FATTY ACIDS 97191424087 Active Hope Benavidez MD PhD Active LUTEIN 10 MG TABS 1 tab daily LUTEIN 16268635112 Act cash Hope Benavidez MD PhD Active TRIAMTERENE-HCTZ 37.5-25 MG TABS 1 tab by mouth daily TRIAMTERENE-HCTZ 40563011177 Active Kylie Lundoliver REYES Active CYCLOBENZAPRINE HCL 10 MG TABS 1 tablet by mouth three times daily as needed for headaches CYCLOBENZAPRINE HCL 85045532296 No Longe r Active Adam Yates MD Active OMEPRAZOLE 20 MG CPDR 1 tablet by mouth daily for GERD OMEPRAZOLE 62698435394 No Longer Active Adam Yates MD A ctive ZOFRAN 8 MG TABS 1 tab by mouth every 12 hours prn 201 05/16/09 ONDANSETRON HCL 50019553872 No Longer Active Adam Yates MD Active PHENADOZ 25 MG SUPP 1 every 4 hrs. PRN PROMETHA ZINE HCL 89413095781 No Longer Active Adam Yates MD Active POTASSIUM CHLORIDE 20 MEQ PACK by mouth twice a day prn POTASSIUM CHLORIDE 23273088469 No Longer Active Adam Yates MD Active PROMETHAZINE HCL 25 MG TABS 1 Q. 4 hr. PRN PROM ETHAZINE HCL 01261212024 No Longer Active Adam Yates MD Active INNOPRAN XL 120 MG [id number] Take one by mouth daily 2 PROPRANOLOL HCL SR BEADS 13376636291 No Longer Active Adam Yates MD A ctive FLAGYL 500 MG TABS 1 pill by mouth three times daily, for diarrh ea METRONIDAZOLE 84882609880 No Longer Active Hope Benavidez MD PhD Active DYAZIDE 37.5-25 MG CAPS 1 qd TRIAMTERENE-HC TZ 48730168167 No Longer Active Hope Benavidez MD PhD Active PROZAC 20 MG CAPS 1 q d FLUOXETINE HCL 79798 558920 No Longer Active Hope Benavidez MD PhD Active SIMVASTATIN 40 MG TABS 1 qd SIMVASTATIN 004 90385087 No Longer Active Adam Yates MD Active MELOXICAM 15 MG TABS 1 qd MELOXICAM 3194372 3034 No Longer Active Adam Yates MD Active IMODIUM A-D 2 MG TABS 2 onset at diarrhea and prn. LOPERAMIDE HCL 30818162790 Active Hope Benavidez MD PhD Active EXCEDRIN EXTRA STRENGTH 250-250-65 MG TABS 1-2 q6h PRN headache 201 04/16/21 [id number] 86251088383 Active Hope Benavidez MD PhD Active FLAGYL 500 MG TABS 1 qid METRONIDAZOLE 39947 124334 No Longer Active Adam Yates MD Active LEVAQUIN 750 MG TABS 1 qd LEVOFLOXACIN 5486 6831805 No Longer Active Adam Yates MD Active ADULT ASPIRIN LOW STRENGTH 81 MG TBDP 1 qd A SPIRIN 24751484460 Active Hope Benavidez MD PhD Active LEVAQUIN 750 MG TABS 1 qd LEVAQUIN 750 MG T ABS 603442 LEVOFLOXACIN Inactive FLAGYL 500 MG TABS 1 qid FLAGYL 500 MG TABS 633761 METRONIDAZOLE Inactive MELOXICAM 15 MG TABS 1 qd MELOXICAM 15 MG T ABS 159921 MELOXICAM Inactive SIMVASTATIN 40 MG TABS 1 qd SIMVASTATIN 40 MG TABS 186814 SIMVASTATIN Inactive PROZAC 20 MG CAPS 1 q d PROZAC 20 MG CAPS 31 0385 FLUOXETINE HCL Inactive DYAZIDE 37.5-25 MG CAPS 1 qd DYAZIDE 37.5 -25 MG CAPS 062521 TRIAMTERENE-HCTZ Inactive INNOPRAN XL 120 MG [id number] Take one by mouth daily 2 INNOPRAN XL 120 MG [id number] PROPRANOLOL HCL SR BEADS Inactive PROMETHAZINE HCL 25 MG TABS 1 Q. 4 hr. PRN PROMETHAZINE HCL 25 MG TABS 210575 PROMETHAZINE HCL Inactive POTASSIUM CHLORIDE 20 MEQ PACK by mouth twice a day prn POTASSIUM CHLORIDE 20 MEQ PACK 660837 POTASSIUM CHLORIDE Inactive PHENADOZ 25 MG SUPP 1 every 4 hrs. PRN PHENADOZ 2 5 MG SUPP 940499 PROMETHAZINE HCL Inactive ZOFRAN 8 MG TABS 1 tab by mouth every 12 hours prn 201 05/16/09 ZOFRAN 8 MG TABS 244426 ONDANSETRON HCL Inactive OMEPRAZOLE 20 MG CPDR 1 tablet by mouth daily for GERD OMEPRAZOLE 20 MG CPDR 036994 OMEPRAZOLE Inactive CYCLOBENZAPRINE HCL 10 MG TABS 1 tablet by mouth three times daily as needed for headaches CYCLOBENZAPRINE HCL 10 MG TABS 428536 CYCLOBENZAPRINE HCL Inactive VITAMIN D3 4000 IU 1 tab 3 times daily VITAMIN D3 4000 IU Inactive PROPRANOLOL HCL 80 MG TABS 1 tab tue. and thur. 04/10 PROPRANOLOL HCL 80 MG TABS 508199 PROPRANOLOL HCL Inactive CYANOCOBALAMIN 1000 MCG/ML INJ SOLN 1 injection every 2 weeks 20 20/01/03 CYANOCOBALAMIN 1000 MCG/ML INJ SOLN 935692 CYANOCOBALAM IN Inactive MAGNESIUM GLUCONATE 250 MG TABS 1 tab tid 4 MAGNESIUM GLUCONATE 250 MG TABS 719273 MAGNESIUM GLUCONATE Inactive LOMOTIL 2.5-0.025 MG TABS 1 tab by mouth prn 4 LOMOTIL 2.5- 0.025 MG TABS 3675245 DIPHENOXYLATE-ATROPINE Inactive FLORANEX PACK 1 pack three times daily, for bowel health FLORANEX PACK LACTOBACILLUS Inactive IRON 325 (65 FE) MG TABS 1 every other day IRON 325 (65 FE) MG TABS 072145 FERROUS SULFATE Inactive FLAGYL 500 MG TABS 1 pill by mouth three times daily, for diarrh ea FLAGYL 500 MG TABS 531217 METRONIDAZOLE Inactive BACTRIM DS 800-160 MG TABS 1 pill by mouth twice daily, for UTI BACTRIM DS 800-160 MG TABS 022246 SULFAMETHOXAZOLE-TRIM ETHOPRIM Inactive Advance Directives Directive Description [...] Panel - Chemistry sodium, serum 142 mmol/L 478-066 7968/04/20 carbon dioxide, venous blood 34.7 mmol/L 21.0-32 .0 potassium, serum 3.5 mmol/L 3.5-5.2 chloride, serum 102 mmol/L 98-107 blood glucose 102 mg/dL 65-110 urea nitrogen, blood 24 mg/dL 7-18 creatinine, serum 1.37 mg/dL 0.55-1.30 alanine aminotransferase (SGPT), serum 72 U/L 12-78 aspartate aminotransferase (SGOT), serum 44 U/L 15-37 calcium, serum 9.0 mg/dL 8.5-10.1 bilirubin, serum, total 0.50 mg/dL 0.00-1.00 sodium, serum 138 mmol/L 615-995 6028/10/23 carbon dioxide, venous blood 29.5 mmol/L 21.0-32 [...] 11 .6-14.8 platelet count 189 10^3/MM^3 10*3/mm3 279-552 5179/04/20 leukocyte count, blood 5.9 10^3/MM^3 10*3/mm3 4.6-10.2 [...] 1.24 m[iU]/mL 0.36-3.74 cholesterol, serum 227 mg/dL 982-562 5983/10/23 triglyceride, serum, fasting 144 mg/dL 30-200 HDL cholesterol, serum 60 mg/dL 32-96 LDL cholesterol, serum 138 mg/dL 0-130 Lab Report: Lipid Panel, MICROALBUMIN, T hyroid Stimulating Hormone (L) - Lab microalbumin, urine 10 0-19 Encounters Code Encounter Date Provider Facility CPT-90430 Level 3 Est. Patient 13:15:54 CDT Kylie Lund [facility] CPT-79831 Level 3 Est. Patient 09:10:11 CDT Kylie Lund [facility] CPT-35176 Level 4 Est. Patient 12:08:30 GRADE TEACHER Hope cohn MD PhD [facility] CPT-05160 Level 4 Est. Patient 19:08:42 GRADE TEACHER Hope cohn MD PhD [facility] CPT-19734 Level 4 Est. Patient 20:04:51 CDT Hope cohn MD PhD [facility] CPT-78845 Level 3 New Patient 01:46:11 GRADE TEACHER Hope landers MD PhD [facility] Procedures Code Procedure Name Date Entry Date Standard Desc ription CPT-J0897 Prolia 60 mg 10:37:16 CDT CPT-18781 Abx/Therapy Injection 10:37:16 CDT CPT-J0897 Prolia 60 mg 16:09:34 GRADE TEACHER CPT-J0897 Prolia 60 mg 11:10:35 GRADE TEACHER CPT-35604 Abx/Therapy Injection 11:10:35 GRADE TEACHER CPT-000 Give Appropriate Flu Vaccine 17:01:15 GRADE TEACHER 2 CPT-65297 Fluzone High Dose (65+) 15:03:08 GRADE TEACHER 02/15 CPT-53702 Immunization Single Admin 15:03:08 GRADE TEACHER 2014 CPT-OV Office Visit 15:58:06 CDT CPT-J0897 Prolia 60 mg 08:45:38 CDT CPT-47322 Abx/Therapy Injection 08:45:38 CDT CPT-J3420 Vitamin B12 1000mcg (Cyanocobalamin) 09:26:20 GRADE TEACHER CPT-18301 Abx/Therapy Injection 09:26:20 GRADE TEACHER CPT-J3420 Vitamin B12 1000mcg (Cyanocobalamin) 09:44:40 GRADE TEACHER CPT-69630 Abx/Therapy Injection 09:44:40 GRADE TEACHER CPT-J3420 Vitamin B12 1000mcg (Cyanocobalamin) 09:15:54 GRADE TEACHER CPT-88858 Abx/Therapy Injection 09:15:54 GRADE TEACHER CPT-J3420 Vitamin B12 1000mcg (Cyanocobalamin) 09:46:44 GRADE TEACHER CPT-37454 Abx/Therapy Injection 09:46:44 GRADE TEACHER CPT-J3420 Vitamin B12 1000mcg (Cyanocobalamin) 09:47:34 GRADE TEACHER CPT-66900 Abx/Therapy Injection 09:47:34 GRADE TEACHER CPT-J3420 Vitamin B12 1000mcg (Cyanocobalamin) 14:35:50 GRADE TEACHER CPT-J3420 Vitamin B12 1000mcg (Cyanocobalamin) 09:25:05 GRADE TEACHER CPT-13798 Abx/Therapy Injection 09:25:05 GRADE TEACHER CPT-G0008 Administration of Influenza Virus Vaccine 13:36:47 CDT CPT-51519 Fluzone High-Dose Intramuscular Suspension 11/15 13:36:47 CDT CPT-J0897 Prolia 60 mg 08:50:41 CDT CPT-43697 Abx/Therapy Injection 08:50:41 CDT CPT-13022 Bone Density 12:06:12 CDT CPT-05739 Bone Density 08:54:40 CDT CPT-OV Office Visit 15:37:02 CDT CPT-63238 Postop F/U Visit 15:47:49 CDT CPT-22116 Postop F/U Visit 15:21:02 CDT CPT-TCMH Transitional Care Mgmt-High 07:52:27 CDT 20 20/06/01 CPT-86747 Venipuncture Draw Fee 13:51:18 CDT CPT-55467 Venipuncture Draw Fee 10:14:55 GRADE TEACHER CPT-64540 Venipuncture Draw Fee 13:39:45 GRADE TEACHER CPT-OV Office Visit 15:11:22 GRADE TEACHER CPT-26926 Venipuncture Draw Fee 09:20:49 GRADE TEACHER CPT-23429 Venipuncture Draw Fee 16:52:15 GRADE TEACHER CPT-98813 Venipuncture Draw Fee 10:37:24 GRADE TEACHER CPT-70012 Venipuncture Draw Fee 08:21:21 GRADE TEACHER CPT-38792 Venipuncture Draw Fee 08:30:20 GRADE TEACHER CPT-26635 Venipuncture Draw Fee 14:53:21 GRADE TEACHER CPT-68483 Venipuncture Draw Fee 09:40:56 GRADE TEACHER CPT-91667 Venipuncture Draw Fee 10:30:47 GRADE TEACHER CPT-32615 Venipuncture Draw Fee 10:46:17 GRADE TEACHER CPT-86886 Venipuncture Draw Fee 11:12:45 GRADE TEACHER CPT-70401 Venipuncture Draw Fee 09:53:33 GRADE TEACHER CPT-84291 Venipuncture Draw Fee 11:53:51 GRADE TEACHER CPT-34066 Venipuncture Draw Fee 10:33:50 GRADE TEACHER CPT-14141 Venipuncture Draw Fee 10:05:01 GRADE TEACHER CPT-95054 Venipuncture Draw Fee 14:32:52 GRADE TEACHER CPT-11236 Venipuncture Draw Fee 09:46:13 GRADE TEACHER CPT-92000 Venipuncture Draw Fee 11:34:27 GRADE TEACHER CPT-79098 Venipuncture Draw Fee 13:17:16 GRADE TEACHER CPT-03127 Venipuncture Draw Fee 12:05:39 CDT CPT-91849 Venipuncture Draw Fee 12:49:12 CDT CPT-85239 Venipuncture Draw Fee 12:37:18 CDT CPT-12353 Venipuncture Draw Fee 10:57:11 CDT CPT-83095 Venipuncture Draw Fee 13:47:40 CDT CPT-61184 Venipuncture Draw Fee 10:02:17 CDT CPT-04090 TB Tubersol 17:32:32 CDT CPT-OV Office Visit 16:21:53 CDT CPT-OV Office Visit 15:49:22 CDT CPT-OV Office Visit 17:16:31 CDT CPT-OV Office Visit 10:43:31 CDT
--- OUTSIDE RECORDS SUMMARY | 2019-02-09 12:57 | XMS REPORT | Clinical Summary ---
Author Author Admin, Florecita Munoz Organization [facility] [employer] Address Unknown Phone Unavailable Allergies, Adverse [...] status (age-related) (natural) Diarrhea 787.91 Inactive Hope Bneavidez MD PhD Diarrhea Diarrhea, functional 564.5 Resolved [...] Sebaceous cyst, scalp 706.2 Resolved Kylie Yokum ALLIANCE CONSULTANT Sebaceous cyst Cervical lymphadenopathy, anterior, left 785.6 Resolv ed Kylie Yokum ALLIANCE CONSULTANT Enlargement of lymph nodes Need for prophylactic vaccination and inoculation against in fluenza V04.81 Resolved Adam Yates MD Need for prophylactic vaccination and inoculation against influenza Preventive health care V70.0 Active Kylie Yokum ALLIANCE CONSULTANT Routine general medical examination at a health care facility Thyroid nodule, left 241.0 Active Kylie Yokum A PRN Nontoxic uninodular goiter Screening mammogram V76.12 Active Kylie Yokum AP RN Other screening mammogram Mandy 706.2 Resolved Kylie Yokum ALLIANCE CONSULTANT Sebaceous cyst Colon cancer, ascending 153.6 Resolved Kylie Yok um ALLIANCE CONSULTANT Malignant neoplasm of ascending colon Foot pain, left 729.5 Active 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 Pain in limb Splinter 919.6 Active Kylie Yokum ALLIANCE CONSULTANT Superficial foreign body (splinter) of other, multiple, and unspecified sites, without major open wound and without mention of infection Rash 782.1 Active Kylie Yokum ALLIANCE CONSULTANT R aurora and other nonspecific skin eruption ABDOMINAL PAIN, RIGHT LOWER QUADRANT ICD-789.03 Inactive Kina Joshua ALLIANCE CONSULTANT ADENOCARCINOMA, COLON, 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 Dick Yates MD ABDOMINAL PAIN, GENERALIZED ICD-789.07 Inactive Hope Benavidez MD PhD FEVER UNSPECIFIED ICD-780.60 Inactive Hope cohn MD PhD UNSPECIFIED VENOUS INSUFFICIENCY ICD-459.81 Elda ctive Adam Yates MD ADENOCARCINOMA, 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 Inac tive Hope Benavidez MD PhD Hyperkalemia ICD-276.7 Inactive Hope Benavidez MD PhD GERD ICD-530.81 Inactive Kylie Yanet ALLIANCE CONSULTANT 2015 Health maintenance exam ICD-V70.0 Bam Yates MD Anemia ICD-285.9 Inactive Kylie Yanet ALLIANCE CONSULTANT 07/24 Hypomagnesemia ICD-275.2 Inactive Kylie Yogabbium ALLIANCE CONSULTANT Weakness ICD-780.79 Inactive Hope Benavidez MD [...] Sebaceous cyst, scalp ICD-706.2 Inactive Tracy Lundum ALLIANCE CONSULTANT Cervical lymphadenopathy, anterior, left ICD-785.6 Inactive Kylie Lundum ALLIANCE CONSULTANT Need for prophylactic vaccination and inoculation against in fluenza ICD-V04.81 Inactive Adam Yates MD Mandy ICD-706.2 Inactive Kylie Lundum AMY 07/20 Colon cancer, ascending ICD-153.6 Inactive Gabbi Escalonagabbioliver AMY Medication List Medication Instructions Start Date Stop Date Generic Name ND Status Provider Patient Instruction VOLTAREN 1 % TRANSDERMAL GEL apply q 6-8 hour to left arm as needed for pain DICLOFENAC SODIUM 96139091926 Active Kylie Lundum ALLIANCE CONSULTANT Active COQ10 100 MG ORAL CAPSULE 1 daily COENZYME Q10 557920 36387 Active LETY Nation Active VITAMIN D3 2000 UNIT ORAL CAPSULE Melaleuca-One daily CHOLECALCIFEROL 58850804560 Active Kylie Lundum ALLIANCE CONSULTANT Active PROBIOTIC DAILY ORAL CAPSULE Take one daily PROBIO TIC PRODUCT 49769303583 Active Kylie Escalonakum ALLIANCE CONSULTANT Active IRON 325 (65 Fe) MG ORAL TABLET 1 every other day FERROUS SULFATE 07716415393 No Longer Active Kylie Lundum ALLIANCE CONSULTANT Active FLORANEX ORAL PACKET 1 pack three times daily, for bowel health LACTOBACILLUS 62670886338 No Longer Active Kylie Kevonum ALLIANCE CONSULTANT Active LOMOTIL 2.5-0.025 MG ORAL TABLET 1 tab by mouth prn 23/10/23 DIPHENOXYLATE-ATROPINE 10666786345 No Longer Active Kylie Yokum ALLIANCE CONSULTANT Active MAGNESIUM GLUCONATE 250 MG ORAL TABLET 1 tab tid 23/10/23 MAGNESIUM GLUCONATE 92768806869 No Longer Active Kylie Yokum ALLIANCE CONSULTANT Active CYANOCOBALAMIN 1000 MCG/ML INJECTION SOLUTION 1 injection ev ruben 2 weeks CYANOCOBALAMIN 11095785289 No Longer Active Kylie Lund um ALLIANCE CONSULTANT Active ATENOLOL 25 MG ORAL TABLET 1/2 pill by mouth daily, fo r headaches, blood pressure ATENOLOL 30723118844 Active Kylie Lundum ALLIANCE CONSULTANT Active PROPRANOLOL HCL 80 MG ORAL TABLET 1 tab tue. and thur. PROPRANOLOL HCL 80482200002 No Longer Active Hope Benavidez MD PhD A ctive VITAMIN D3 4000 IU 1 tab 3 times daily VITAMIN D3 4000 IU No Longer Active Hope Benavidez MD PhD Active BACTRIM DS 800-160 MG ORAL TABLET 1 pill by mouth twice claudio y, for UTI SULFAMETHOXAZOLE-TRIMETHOPRIM 45413245212 No Longer Active Hope Benavidez MD PhD Active PROLIA 60 MG/ML SUBCUTANEOUS SOLUTION 1 shot every 6 months for osteoprosis DENOSUMAB 80896713234 Active Hope Benavidez MD PhD Active CALCIUM + D + K 750-500-40 MG-UNT-MCG ORAL TABLET 1 tab by [facility] twice daily CALCIUM-VITAMIN D-VITAMIN K 06075081489 Active Hope valdez MD PhD Active DAILY VALUE MULTIVITAMIN ORAL TABLET 1 tab by mouth twice daily 201 05/16/14 MULTIPLE VITAMIN 53731146494 Active Hope Benavidez MD PhD Acti ve FISH OIL 306 MG CAPS 1 tab by mouth three times daily OMEGA-3 FATTY ACIDS 29134801804 Active Hope Benavidez MD PhD Active LUTEIN 10 MG ORAL TABLET 1 tab daily LUTEIN 13845440 408 Active Hope Benavidez MD PhD Active TRIAMTERENE-HCTZ 37.5-25 MG ORAL TABLET 1 tab by mouth daily 10/22 TRIAMTERENE-HCTZ 95560094004 Active LETY Rossi Activ aarti CYCLOBENZAPRINE HCL 10 MG ORAL TABLET 1 tablet by mout h three times daily as needed for headaches CYCLOBENZAPRINE HCL 37667065822 No Longer Active Adam Yates MD Active OMEPRAZOLE 20 MG ORAL CAPSULE DELAYED RELEASE 1 tablet by mo [facility] daily for GERD OMEPRAZOLE 20607000841 No Longer Active Adam Yates MD Active ZOFRAN 8 MG ORAL TABLET 1 tab by mouth every 12 hours prn 4 ONDANSETRON HCL 82687908505 No Longer Active Adam Yates MD Active PHENADOZ 25 MG RECTAL SUPPOSITORY 1 every 4 hrs. PRN 2 PROMETHAZINE HCL 92662301683 No Longer Active Adam Yates MD A ctive POTASSIUM CHLORIDE 20 MEQ ORAL PACKET by mouth twice a day prn 2 POTASSIUM CHLORIDE 69140001073 No Longer Active Adam Carpenter MD Active PROMETHAZINE HCL 25 MG ORAL TABLET 1 Q. 4 hr. PRN PROMETHAZINE HCL 58575960484 No Longer Active Adam Yates MD Active INNOPRAN XL 120 MG ORAL CAPSULE EXTENDED RELEASE 24 HO UR Take one by mouth daily PROPRANOLOL HCL SR BEADS 75681227638 No Longer Active Adam Yates MD Active FLAGYL 500 MG ORAL TABLET 1 pill by mouth three times daily, for diarrhea METRONIDAZOLE 86446179185 No Longer Active Hope landers MD PhD Active DYAZIDE 37.5-25 MG ORAL CAPSULE 1 qd TRIA MTERENE-HCTZ 43101095519 No Longer Active Hope Benavidez MD PhD Active PROZAC 20 MG ORAL CAPSULE 1 q d FLUOXETINE HCL 70054531924 No Longer Active Hope Benavidez MD PhD Active SIMVASTATIN 40 MG ORAL TABLET 1 qd SIMVAS TATIN 54116170594 No Longer Active Adam Yates MD Active MELOXICAM 15 MG ORAL TABLET 1 qd MELOXICAM 64989479392 No Longer Active Adam Yates MD Active IMODIUM A-D 2 MG ORAL TABLET 2 onset at diarrhea and prn. LOPERAMIDE HCL 93836231393 Active Hope Benavidez MD PhD Active EXCEDRIN EXTRA STRENGTH 250-250-65 MG ORAL TABLET 1-2 q6h RI N headache [id number] 88295014182 Active Hope Benavidez MD PhD Active FLAGYL 500 MG ORAL TABLET 1 qid METRONIDAZOL E 32409672852 No Longer Active Adam Yates MD Active LEVAQUIN 750 MG ORAL TABLET 1 qd LEVOFLOXAC IN 67198681672 No Longer Active Adam Yates MD Active ADULT ASPIRIN LOW STRENGTH 81 MG ORAL TABLET DISINTEGRATING 1 qd ASPIRIN 60818128804 Active Hope Benavidez MD PhD Active LEVAQUIN 750 MG ORAL TABLET 1 qd LEVAQUIN 750 MG ORAL TABLET 324297 LEVOFLOXACIN Inactive FLAGYL 500 MG ORAL TABLET 1 qid FLAGYL 500 MG ORAL TABLET 143309 METRONIDAZOLE Inactive MELOXICAM 15 MG ORAL TABLET 1 qd MELOXICAM 15 MG ORAL TABLET 159520 MELOXICAM Inactive SIMVASTATIN 40 MG ORAL TABLET 1 qd SIMVASTATIN 40 MG ORAL TABLET 148869 SIMVASTATIN Inactive PROZAC 20 MG ORAL CAPSULE 1 q d PROZAC 20 MG ORAL CAPSULE 601164 FLUOXETINE HCL Inactive DYAZIDE 37.5-25 MG ORAL CAPSULE 1 qd 5 DYAZIDE 37.5-25 MG ORAL CAPSULE 062395 TRIAMTERENE-HCTZ Inactive INNOPRAN XL 120 MG ORAL CAPSULE EXTENDED RELEASE 24 HO UR Take one by mouth daily INNOPRAN XL 120 MG ORAL CAPSULE EXTENDED RELEASE 24 HOUR PROPRANOLOL HCL SR BEADS Inactive PROMETHAZINE HCL 25 MG ORAL TABLET 1 Q. 4 hr. PRN 2013 PROMETHAZINE HCL 25 MG ORAL TABLET 251008 PROMETHAZINE HCL Inactive POTASSIUM CHLORIDE 20 MEQ ORAL PACKET by mouth twice a day prn 2 POTASSIUM CHLORIDE 20 MEQ ORAL PACKET 1398099 POTASSIUM CHLORIDE Inactive PHENADOZ 25 MG RECTAL SUPPOSITORY 1 every 4 hrs. PRN 2 PHENADOZ 25 MG RECTAL SUPPOSITORY 286075 PROMETHAZINE HCL Inactive ZOFRAN 8 MG ORAL TABLET 1 tab by mouth every 12 hours prn 4 ZOFRAN 8 MG ORAL TABLET 668273 ONDANSETRON HCL Inactive OMEPRAZOLE 20 MG ORAL CAPSULE DELAYED RELEASE 1 tablet by mo uth daily for GERD OMEPRAZOLE 20 MG ORAL CAPSULE DELAYED RELEASE 19 8051 OMEPRAZOLE Inactive CYCLOBENZAPRINE HCL 10 MG ORAL TABLET 1 tablet by mout h three times daily as needed for headaches CYCLOBENZAPRINE HCL 10 MG ORAL TABLET 224753 CYCLOBENZAPRINE HCL Inactive VITAMIN D3 4000 IU 1 tab 3 times daily VITAMIN D3 4000 IU Inactive PROPRANOLOL HCL 80 MG ORAL TABLET 1 tab tue. and thur. PROPRANOLOL HCL 80 MG ORAL TABLET 148710 PROPRANOLOL HCL Inacti ve CYANOCOBALAMIN 1000 MCG/ML INJECTION SOLUTION 1 injection ev ruben 2 weeks CYANOCOBALAMIN 1000 MCG/ML INJECTION SOLUTION 30 9594 CYANOCOBALAMIN Inactive MAGNESIUM GLUCONATE 250 MG ORAL TABLET 1 tab tid 20 23/10/23 MAGNESIUM GLUCONATE 250 MG ORAL TABLET 473565 MAGNESIUM GLUCONATE Inactive LOMOTIL 2.5-0.025 MG ORAL TABLET 1 tab by mouth prn 20 23/10/23 LOMOTIL 2.5-0.025 MG ORAL TABLET 7887890 DIPHENOXYLATE-ATROPINE Inac tive FLORANEX ORAL PACKET 1 pack three times daily, for bowel health FLORANEX ORAL PACKET LACTOBACILLUS Inactive IRON 325 (65 Fe) MG ORAL TABLET 1 every other day 2015 IRON 325 (65 Fe) MG ORAL TABLET 678770 FERROUS SULFATE Inactive FLAGYL 500 MG ORAL TABLET 1 pill by mouth three times daily, for diarrhea FLAGYL 500 MG ORAL TABLET 869876 METRONIDAZOLE I nactive BACTRIM DS 800-160 MG ORAL TABLET 1 pill by mouth twice claudio y, for UTI BACTRIM DS 800-160 MG ORAL TABLET 448820 SULFAMETHOXAZOLE-TRIMETHOPRIM Inactive Advance Directives Directive Description Start [...] ... - Chemistry sodium, serum 138 mmol/L 666-312 9623/12/15 potassium, serum 4.0 mmol/L 3.5-5.2 chloride, serum [...] 11 .0-15.0 platelet count 157 THOUSAND/UL 10*3/mm3 911-053 9812/04/20 mean platelet volume 8.9 fL 7.5-12.5 Lab Report: CEA - Serology carcinoembryonic antigen 0.9 ng/mL Encounters Code Encounter Date Provider Facility CPT-08540 Level 2 Est. Patient 14:27:16 SPECIAL DAY CLASS TEACHER Kylie boyd [facility] CPT-06739 Level 3 Est. Patient 17:54:48 CDT Kylie boyd [facility] CPT-99240 Level 3 Est. Patient 16:26:30 CDT Kina blackmon [facility] CPT-60850 Level 3 New Patient 16:22:01 SPECIAL DAY CLASS TEACHER Adam Yates MD [facility] CPT-56043 Level 4 Est. Patient 17:00:48 CDT [facility] CPT-10905 Level 3 Est. Patient 13:15:54 CDT Kylie boyd [facility] CPT-86915 Level 3 Est. Patient 09:10:11 CDT Kylie Lund [facility] CPT-52831 Level 4 Est. Patient 12:08:30 SPECIAL DAY CLASS TEACHER Hope cohn MD [facility] CPT-32272 Level 4 Est. Patient 19:08:42 SPECIAL DAY CLASS TEACHER Hope cohn MD [facility] CPT-91013 Level 4 Est. Patient 20:04:51 CDT Hope cohn MD [facility] CPT-91355 Level 3 New Patient 01:46:11 SPECIAL DAY CLASS TEACHER Hope landers MD PhD [facility] Procedures Code Procedure Name Date Entry Date Standard Desc ription CPT-J0897 Prolia 60 mg 15:46:54 [employer] DAY CLASS TEACHER CPT-86137 Abx/Therapy Injection 15:46:54 [employer] DAY CLASS TEACHER CPT-24406 Microalbumin - LAB USE ONLY 09:41:32 SPECIAL DAY CLASS TEACHER 20 23/01/15 CPT-60928 Free T4 - LAB USE ONLY 09:41:32 SPECIAL DAY CLASS TEACHER CPT-23260 TSH - LAB USE ONLY 09:41:32 SPECIAL DAY CLASS TEACHER CPT-89097 BMP - LAB USE ONLY 09:41:32 SPECIAL DAY CLASS TEACHER CPT-24526 Venipuncture Draw Fee 09:41:32 SPECIAL DAY CLASS TEACHER CPT-80739 First Vx - Ix admin for Medicare patients 11:19:30 CDT CPT-01764 Fluzone High-Dose Intramuscular Suspension 12/07 11:19:30 CDT CPT-J0897 Prolia 60 mg 14:55:42 CDT CPT-91077 Abx/Therapy Injection 14:55:42 CDT CPT-04545 Bone Density - XRAY USE ONLY 10:27:12 CDT 2 CPT-G0439 Subsequent Annual Wellness Exam 17:54:53 CDT CPT-89935 Foot, left, comp min 3V - XRAY USE ONLY 12:22:49 CDT CPT-G0009 Administration of Pneumococcal Vaccine 3 12:18:00 CDT CPT-71617 Pneumovax 23 Injection Injectable 25 MCG /0.5ML 12:18:00 CDT CPT-J0897 Prolia 60 mg 14:14:16 SPECIAL DAY CLASS TEACHER CPT-08018 Abx/Therapy Injection 14:14:15 SPECIAL DAY CLASS TEACHER CPT-11348 Lipid - LAB USE ONLY 10:01:52 SPECIAL DAY CLASS TEACHER 2 CPT-97062 Calcium - LAB USE ONLY 10:01:51 SPECIAL DAY CLASS TEACHER CPT-66090 Venipuncture Draw Fee 10:01:51 SPECIAL DAY CLASS TEACHER 2016/11/ 22 CPT-LR Lesion Removal 16:22:01 SPECIAL DAY CLASS TEACHER CPT-42686 TSH - LAB USE ONLY 14:26:02 CDT CPT-63913 CMP - LAB USE ONLY 14:26:01 CDT CPT-55954 CBC with Diff - LAB USE ONLY 14:26:01 CDT 2 CPT-31934 Venipuncture Draw Fee 14:26:01 CDT CPT-51145 First Vx - Ix admin for Medicare patients 13:27:08 CDT CPT-14068 Fluzone High-Dose Intramuscular Suspension 11/26 13:27:08 CDT CPT-G0438 Initial Annual Wellness Exam 14:19:57 CD T CPT-G0009 Administration of Pneumococcal Vaccine 9 11:36:25 CDT CPT-87591 Prevnar 13 Intramuscular Suspension 1 1:36:25 CDT CPT-11568 Prevnar 13 Intramuscular Suspension 1 0:40:58 CDT CPT-J0897 Prolia 60 mg 10:37:16 CDT CPT-58536 Abx/Therapy Injection 10:37:16 CDT CPT-J0897 Prolia 60 mg 16:09:34 SPECIAL DAY CLASS TEACHER CPT-J0897 Prolia 60 mg 11:10:35 SPECIAL DAY CLASS TEACHER CPT-74010 Abx/Therapy Injection 11:10:35 SPECIAL DAY CLASS TEACHER CPT-000 Give Appropriate Flu Vaccine 17:01:15 SPECIAL DAY CLASS TEACHER 2 CPT-97055 Fluzone High Dose (65+) 15:03:08 SPECIAL DAY CLASS TEACHER 02/15 CPT-14410 Immunization Single Admin 15:03:08 SPECIAL DAY CLASS TEACHER 2014 CPT-OV Office Visit 15:58:06 CDT CPT-J0897 Prolia 60 mg 08:45:38 CDT CPT-82583 Abx/Therapy Injection 08:45:38 CDT CPT-J3420 Vitamin B12 1000mcg (Cyanocobalamin) 09:26:20 SPECIAL DAY CLASS TEACHER CPT-56486 Abx/Therapy Injection 09:26:20 SPECIAL DAY CLASS TEACHER CPT-J3420 Vitamin B12 1000mcg (Cyanocobalamin) 09:44:40 SPECIAL DAY CLASS TEACHER CPT-38540 Abx/Therapy Injection 09:44:40 SPECIAL DAY CLASS TEACHER CPT-J3420 Vitamin B12 1000mcg (Cyanocobalamin) 09:15:54 SPECIAL DAY CLASS TEACHER CPT-82791 Abx/Therapy Injection 09:15:54 SPECIAL DAY CLASS TEACHER CPT-J3420 Vitamin B12 1000mcg (Cyanocobalamin) 09:46:44 SPECIAL DAY CLASS TEACHER CPT-72212 Abx/Therapy Injection 09:46:44 SPECIAL DAY CLASS TEACHER CPT-J3420 Vitamin B12 1000mcg (Cyanocobalamin) 09:47:34 SPECIAL DAY CLASS TEACHER CPT-36430 Abx/Therapy Injection 09:47:34 SPECIAL DAY CLASS TEACHER CPT-J3420 Vitamin B12 1000mcg (Cyanocobalamin) 14:35:50 SPECIAL DAY CLASS TEACHER CPT-J3420 Vitamin B12 1000mcg (Cyanocobalamin) 09:25:05 SPECIAL DAY CLASS TEACHER CPT-69805 Abx/Therapy Injection 09:25:05 SPECIAL DAY CLASS TEACHER CPT-G0008 Administration of Influenza Virus Vaccine 13:36:47 CDT CPT-64413 Fluzone High-Dose Intramuscular Suspension 11/15 13:36:47 CDT CPT-J0897 Prolia 60 mg 08:50:41 CDT CPT-11124 Abx/Therapy Injection 08:50:41 CDT CPT-50989 Bone Density 12:06:12 CDT CPT-02324 Bone Density 08:54:40 CDT CPT-OV Office Visit 15:37:02 CDT CPT-10268 Postop F/U Visit 15:47:49 CDT CPT-61709 Postop F/U Visit 15:21:02 CDT CPT-TCM Transitional Care Mgmt-High 07:52:27 CDT 20 20/06/01 CPT-11922 Venipuncture Draw Fee 13:51:18 CDT CPT-07925 Venipuncture Draw Fee 10:14:55 [employer] DAY CLASS TEACHER CPT-01469 Venipuncture Draw Fee 13:39:45 SPECIAL DAY CLASS TEACHER CPT-OV Office Visit 15:11:22 SPECIAL DAY CLASS TEACHER CPT-54419 Venipuncture Draw Fee 09:20:49 SPECIAL DAY CLASS TEACHER CPT-99689 Venipuncture Draw Fee 16:52:15 SPECIAL DAY CLASS TEACHER CPT-62327 Venipuncture Draw Fee 10:37:24 SPECIAL DAY CLASS TEACHER CPT-26300 Venipuncture Draw Fee 08:21:21 SPECIAL DAY CLASS TEACHER CPT-33878 Venipuncture Draw Fee 08:30:20 SPECIAL DAY CLASS TEACHER CPT-18802 Venipuncture Draw Fee 14:53:21 SPECIAL DAY CLASS TEACHER CPT-53587 Venipuncture Draw Fee 09:40:56 SPECIAL DAY CLASS TEACHER CPT-89897 Venipuncture Draw Fee 10:30:47 SPECIAL DAY CLASS TEACHER CPT-68024 Venipuncture Draw Fee 10:46:17 SPECIAL DAY CLASS TEACHER CPT-57732 Venipuncture Draw Fee 11:12:45 SPECIAL DAY CLASS TEACHER CPT-74463 Venipuncture Draw Fee 09:53:33 SPECIAL DAY CLASS TEACHER CPT-08233 Venipuncture Draw Fee 11:53:51 SPECIAL DAY CLASS TEACHER CPT-58861 Venipuncture Draw Fee 10:33:50 SPECIAL DAY CLASS TEACHER CPT-58109 Venipuncture Draw Fee 10:05:01 SPECIAL DAY CLASS TEACHER CPT-53243 Venipuncture Draw Fee 14:32:52 SPECIAL DAY CLASS TEACHER CPT-47624 Venipuncture Draw Fee 09:46:13 SPECIAL DAY CLASS TEACHER CPT-93591 Venipuncture Draw Fee 11:34:27 SPECIAL DAY CLASS TEACHER CPT-43987 Venipuncture Draw Fee 13:17:16 SPECIAL DAY CLASS TEACHER CPT-63666 Venipuncture Draw Fee 12:05:39 CDT CPT-83312 Venipuncture Draw Fee 12:49:12 CDT CPT-29264 Venipuncture Draw Fee 12:37:18 CDT CPT-37618 Venipuncture Draw Fee 10:57:11 CDT CPT-08360 Venipuncture Draw Fee 13:47:40 CDT CPT-62363 Venipuncture Draw Fee 10:02:17 CDT CPT-80498 TB Tubersol 17:32:32 CDT CPT-OV Office Visit 16:21:53 CDT CPT-OV Office Visit 15:49:22 CDT CPT-OV Office Visit 17:16:31 CDT CPT-OV Office Visit 10:43:31 CDT
--- OUTSIDE RECORDS SUMMARY | 2019-02-09 12:57 | XMS REPORT | Clinical Summary ---
Author Author Renaldo, Florecita Munoz Organization [facility] [employer] Address Unknown Phone Unavailable Allergies, Adverse Reactions, [...] PAIN, RIGHT LOWER QUADRANT 789.03 Resolved Kina Jsohua APRN Abdominal pain, right lower quadrant ADENOCARCINOMA, [...] PhD Hyperpotassemia GERD 530.81 Resolved Kylie Yokum SLATE ROOFER HELPER Esophageal reflux Health maintenance exam V70.0 Resolved Adolfo Yates MD Routine general medical examination at a health care facility Anemia 285.9 Resolved Kylie Holt SLATE ROOFER HELPER Anemia, unspecified Personal history of malignant [...] D deficiency Peripheral neuropathy 356.9 Active Hope Beanvidez MD PhD Unspecified hereditary and idiopathic peripheral neuropathy Vitamin B12 deficiency 266.2 Active Citlaly Angel ord RMA Other B-complex deficiencies Adenocarcinoma, ascending colon 153.6 Active 2014 Kelsy Mckeon RMA Malignant neoplasm of ascending colon Sebaceous cyst, scalp 706.2 Resolved Kylie Yopari SLATE ROOFER HELPER Sebaceous cyst Cervical lymphadenopathy, anterior, left 785.6 Resolv ed Kylie Yopari SLATE ROOFER HELPER Enlargement of lymph nodes Need for prophylactic vaccination and inoculation against in fluenza V04.81 Active Citlaly Watkins RMA Need for prophylactic vaccination and inoculation against influenza Preventive health care V70.0 Active Kylie Holt SLATE ROOFER HELPER Routine general medical examination at a health care facility Thyroid nodule, left 241.0 Active Kylie Polagabbium A PRN Nontoxic uninodular goiter ABDOMINAL PAIN, RIGHT LOWER QUADRANT ICD-789.03 Inactive Kina Joshua SLATE ROOFER HELPER ADENOCARCINOMA, COLON, 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 Dick Yates MD ABDOMINAL PAIN, GENERALIZED ICD-789.07 Inactive Hope Benavidez MD PhD FEVER UNSPECIFIED ICD-780.60 Inactive Hope cohn MD PhD UNSPECIFIED VENOUS INSUFFICIENCY ICD-459.81 [place] ctive Adam Yates MD ADENOCARCINOMA, 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 Inac tive Hope Benavidez MD PhD Hyperkalemia ICD-276.7 Inactive Hope Benavidez MD PhD GERD ICD-530.81 Inactive Kylie Holt SLATE ROOFER HELPER 2015 Health maintenance exam ICD-V70.0 Bam Yates MD Anemia ICD-285.9 Inactive Kylie Yokum SLATE ROOFER HELPER 07/24 Weakness ICD-780.79 Inactive Hope Benavidez MD P hD Aftercare following surgery of the teeth,oral cavity a nd digestive system, NEC ICD-V58.75 Inactive Adam Yates MD Colon cancer ICD-153.9 Inactive Adam luna MD Asymptomatic postmenopausal status (age-related) (natural) I CD-V49.81 Inactive Hope Benavidez MD PhD Dysuria ICD-788.1 Inactive Hope Benavidez MD PhD 201 05/19/01 Sebaceous cyst, scalp ICD-706.2 Inactive Tracy Lundum SLATE ROOFER HELPER Cervical lymphadenopathy, anterior, left ICD-785.6 Inactive Kylie Lundum SLATE ROOFER HELPER Medication List Medication Instructions Start Date Stop Date Generic Name NDC Status Provider Patient Instruction VITAMIN D3 2000 UNIT ORAL CAPS Melaleuca-One daily CHOLECALCIFEROL 69709248928 Active Kylie Yokum SLATE ROOFER HELPER Active PROBIOTIC DAILY ORAL CAPS Take one daily PROBIOTIC PRODUCT 45351535532 Active Kylie Yokum SLATE ROOFER HELPER Active IRON 325 (65 FE) MG TABS 1 every other day FERR OUS SULFATE 56057651580 No Longer Active Kylie Yokum SLATE ROOFER HELPER Active FLORANEX PACK 1 pack three times daily, for bowel health LACTOBACILLUS 20422717006 No Longer Active Kylie Yokum SLATE ROOFER HELPER Active LOMOTIL 2.5-0.025 MG TABS 1 tab by mouth prn 4 DIPHENOXYLATE-ATROPINE 14010615160 No Longer Active Kylie Yokum SLATE ROOFER HELPER Active MAGNESIUM GLUCONATE 250 MG TABS 1 tab tid 4 MAGNESIUM GLUCONATE 60479984386 No Longer Active Kylie Yokum SLATE ROOFER HELPER Active CYANOCOBALAMIN 1000 MCG/ML INJ SOLN 1 injection every 2 weeks 20 20/01/03 CYANOCOBALAMIN 13360502123 No Longer Active Kylieshubham Lundum SLATE ROOFER HELPER Active ATENOLOL 25 MG ORAL TABS 1/2 pill by mouth daily, for headac hes, blood pressure ATENOLOL 72205258364 Active Kylie Yokum SLATE ROOFER HELPER Active PROPRANOLOL HCL 80 MG TABS 1 tab tue. and thur. 04/10 PROPRANOLOL HCL 51351774364 No Longer Active Hope Benavidez MD PhD A ctive VITAMIN D3 4000 IU 1 tab 3 times daily VITAMIN D3 4000 IU No Longer Active Hope Benavidez MD PhD Active BACTRIM DS 800-160 MG TABS 1 pill by mouth twice daily, for UTI SULFAMETHOXAZOLE-TRIMETHOPRIM 65662539637 No Longer Active A attila Benavidez MD PhD Active PROLIA 60 MG/ML SOLN 1 shot every 6 months for osteoprosis DENOSUMAB 59428618437 Active Hope Benavidez MD PhD Active CALCIUM + D + K 750-500-40 MG-UNT-MCG TABS 1 tab by mouth tw ice daily CALCIUM-VITAMIN D-VITAMIN K 46859642017 Active Hope landers MD PhD Active DAILY VALUE MULTIVITAMIN TABS 1 tab by mouth twice daily MULTIPLE VITAMIN 77627722454 Active Hope Benavidez MD PhD Active FISH OIL 306 MG CAPS 1 tab by mouth three times daily OMEGA-3 FATTY ACIDS 50621351998 Active Hope Benavidez MD PhD Active LUTEIN 10 MG TABS 1 tab daily LUTEIN 81075636165 Act cash Hope Benavidez MD PhD Active TRIAMTERENE-HCTZ 37.5-25 MG TABS 1 tab by mouth daily TRIAMTERENE-HCTZ 45628206332 Active Kylie Lundum SLATE ROOFER HELPER Active CYCLOBENZAPRINE HCL 10 MG TABS 1 tablet by mouth three times daily as needed for headaches CYCLOBENZAPRINE HCL 88075764912 No Longe r Active Adam Yates MD Active OMEPRAZOLE 20 MG CPDR 1 tablet by mouth daily for GERD OMEPRAZOLE 69317196838 No Longer Active Adam Yates MD A ctive ZOFRAN 8 MG TABS 1 tab by mouth every 12 hours prn 201 05/16/09 ONDANSETRON HCL 02204022654 No Longer Active Adam Yates MD Active PHENADOZ 25 MG SUPP 1 every 4 hrs. PRN PROMETHA ZINE HCL 77509888942 No Longer Active Adam Yates MD Active POTASSIUM CHLORIDE 20 MEQ PACK by mouth twice a day prn POTASSIUM CHLORIDE 93693459955 No Longer Active Adam Yates MD Active PROMETHAZINE HCL 25 MG TABS 1 Q. 4 hr. PRN PROM ETHAZINE HCL 44381814673 No Longer Active Adam Yates MD Active INNOPRAN XL 120 MG [id number] Take one by mouth daily 2 PROPRANOLOL HCL SR BEADS 12556621951 No Longer Active Adam Yates MD A ctive FLAGYL 500 MG TABS 1 pill by mouth three times daily, for diarrh ea METRONIDAZOLE 24711615410 No Longer Active Hope Benavidez MD PhD Active DYAZIDE 37.5-25 MG CAPS 1 qd TRIAMTERENE-HC TZ 59688200252 No Longer Active Hope Benavidez MD PhD Active PROZAC 20 MG CAPS 1 q d FLUOXETINE HCL 86202 099663 No Longer Active Hope Benavidez MD PhD Active SIMVASTATIN 40 MG TABS 1 qd SIMVASTATIN 004 48599506 No Longer Active Adam Yates MD Active MELOXICAM 15 MG TABS 1 qd MELOXICAM 4448532 0968 No Longer Active Adam Yates MD Active IMODIUM A-D 2 MG TABS 2 onset at diarrhea and prn. LOPERAMIDE HCL 88934651918 Active Hope Benavidez MD PhD Active EXCEDRIN EXTRA STRENGTH 250-250-65 MG TABS 1-2 q6h PRN headache 201 04/16/21 [id number] 49572285168 Active Hope Benavidez MD PhD Active FLAGYL 500 MG TABS 1 qid METRONIDAZOLE 87352 723932 No Longer Active Adam Yates MD Active LEVAQUIN 750 MG TABS 1 qd LEVOFLOXACIN 5486 6274915 No Longer Active Adam Yates MD Active ADULT ASPIRIN LOW STRENGTH 81 MG TBDP 1 qd A SPIRIN 31823308054 Active Hoep Benavidez MD PhD Active LEVAQUIN 750 MG TABS 1 qd LEVAQUIN 750 MG T ABS 467885 LEVOFLOXACIN Inactive FLAGYL 500 MG TABS 1 qid FLAGYL 500 MG TABS 187704 METRONIDAZOLE Inactive MELOXICAM 15 MG TABS 1 qd MELOXICAM 15 MG T ABS 298479 MELOXICAM Inactive SIMVASTATIN 40 MG TABS 1 qd SIMVASTATIN 40 MG TABS 603387 SIMVASTATIN Inactive PROZAC 20 MG CAPS 1 q d PROZAC 20 MG CAPS 31 0385 FLUOXETINE HCL Inactive DYAZIDE 37.5-25 MG CAPS 1 qd DYAZIDE 37.5 -25 MG CAPS 496901 TRIAMTERENE-HCTZ Inactive INNOPRAN XL 120 MG [id number] Take one by mouth daily 2 INNOPRAN XL 120 MG [id number] PROPRANOLOL HCL SR BEADS Inactive PROMETHAZINE HCL 25 MG TABS 1 Q. 4 hr. PRN PROMETHAZINE HCL 25 MG TABS 083565 PROMETHAZINE HCL Inactive POTASSIUM CHLORIDE 20 MEQ PACK by mouth twice a day prn POTASSIUM CHLORIDE 20 MEQ PACK 324372 POTASSIUM CHLORIDE Inactive PHENADOZ 25 MG SUPP 1 every 4 hrs. PRN PHENADOZ 2 5 MG SUPP 583080 PROMETHAZINE HCL Inactive ZOFRAN 8 MG TABS 1 tab by mouth every 12 hours prn 201 05/16/09 ZOFRAN 8 MG TABS 784406 ONDANSETRON HCL Inactive OMEPRAZOLE 20 MG CPDR 1 tablet by mouth daily for GERD OMEPRAZOLE 20 MG CPDR 411198 OMEPRAZOLE Inactive CYCLOBENZAPRINE HCL 10 MG TABS 1 tablet by mouth three times daily as needed for headaches CYCLOBENZAPRINE HCL 10 MG TABS 062161 CYCLOBENZAPRINE HCL Inactive VITAMIN D3 4000 IU 1 tab 3 times daily VITAMIN D3 4000 IU Inactive PROPRANOLOL HCL 80 MG TABS 1 tab tue. and thur. 04/10 PROPRANOLOL HCL 80 MG TABS 958013 PROPRANOLOL HCL Inactive CYANOCOBALAMIN 1000 MCG/ML INJ SOLN 1 injection every 2 weeks 20 20/01/03 CYANOCOBALAMIN 1000 MCG/ML INJ SOLN 840663 CYANOCOBALAM IN Inactive MAGNESIUM GLUCONATE 250 MG TABS 1 tab tid 4 MAGNESIUM GLUCONATE 250 MG TABS 059341 MAGNESIUM GLUCONATE Inactive LOMOTIL 2.5-0.025 MG TABS 1 tab by mouth prn 4 LOMOTIL 2.5- 0.025 MG TABS 1196091 DIPHENOXYLATE-ATROPINE Inactive FLORANEX PACK 1 pack three times daily, for bowel health FLORANEX PACK LACTOBACILLUS Inactive IRON 325 (65 FE) MG TABS 1 every other day IRON 325 (65 FE) MG TABS 254569 FERROUS SULFATE Inactive FLAGYL 500 MG TABS 1 pill by mouth three times daily, for diarrh ea FLAGYL 500 MG TABS 835269 METRONIDAZOLE Inactive BACTRIM DS 800-160 MG TABS 1 pill by mouth twice daily, for UTI BACTRIM DS 800-160 MG TABS 296883 SULFAMETHOXAZOLE-TRIM ETHOPRIM Inactive Advance Directives Directive Description [...] Panel - Chemistry sodium, serum 142 mmol/L 036-681 8443/04/20 carbon dioxide, venous blood 34.7 mmol/L 21.0-32 .0 potassium, serum 3.5 mmol/L 3.5-5.2 chloride, serum 102 mmol/L 98-107 blood glucose 102 mg/dL 65-110 urea nitrogen, blood 24 mg/dL 7-18 creatinine, serum 1.37 mg/dL 0.55-1.30 alanine aminotransferase (SGPT), serum 72 U/L 12-78 aspartate aminotransferase (SGOT), serum 44 U/L 15-37 calcium, serum 9.0 mg/dL 8.5-10.1 bilirubin, serum, total 0.50 mg/dL 0.00-1.00 sodium, serum 138 mmol/L 545-133 5751/10/23 carbon dioxide, venous blood 29.5 mmol/L 21.0-32 [...] 11 .6-14.8 platelet count 189 10^3/MM^3 10*3/mm3 355-624 5925/04/20 leukocyte count, blood 5.9 10^3/MM^3 10*3/mm3 4.6-10.2 [...] 1.24 m[iU]/mL 0.36-3.74 cholesterol, serum 227 mg/dL 327-022 1489/10/23 triglyceride, serum, fasting 144 mg/dL 30-200 HDL cholesterol, serum 60 mg/dL 32-96 LDL cholesterol, serum 138 mg/dL 0-130 Lab Report: Lipid Panel, MICROALBUMIN, T hyroid Stimulating Hormone (L) - Lab microalbumin, urine 10 0-19 Encounters Code Encounter Date Provider Facility CPT-45015 Level 4 Est. [facility] CPT-67269 Level 3 Est. [facility] 13:15[facility] CPT-49911 Level 3 Est. Patient 09:10:11 CDT [facility] Kevon [facility] CPT-05718 Level 4 Est. Patient 12:08:30 VIDEO CONTROL OPERATOR Hope cohn MD PhD [facility] CPT-42084 Level 4 Est. Patient 19:08:42 VIDEO CONTROL OPERATOR Hope cohn MD PhD [facility] CPT-84427 Level 4 Est. Patient 20:04:51 CDT Hope cohn MD PhD [facility] CPT-10237 Level 3 New Patient 01:46:11 VIDEO CONTROL OPERATOR Hope landers MD PhD [facility] Procedures Code Procedure Name Date Entry Date Standard Desc ription CPT-G0438 Initial Annual Wellness Exam 14:19:57 CD T CPT-G0009 Administration of Pneumococcal Vaccine 9 11:36:25 CDT CPT-95378 Prevnar 13 Intramuscular Suspension 1 1:36:25 CDT CPT-26063 Prevnar 13 Intramuscular Suspension 1 0:40:58 CDT CPT-J0897 Prolia 60 mg 10:37:16 CDT CPT-42403 Abx/Therapy Injection 10:37:16 CDT CPT-J0897 Prolia 60 mg 16:09:34 VIDEO CONTROL OPERATOR CPT-J0897 Prolia 60 mg 11:10:35 VIDEO CONTROL OPERATOR CPT-09805 Abx/Therapy Injection 11:10:35 VIDEO CONTROL OPERATOR CPT-000 Give Appropriate Flu Vaccine 17:01:15 VIDEO CONTROL OPERATOR 2 CPT-74705 Fluzone High Dose (65+) 15:03:08 VIDEO CONTROL OPERATOR 02/15 CPT-99826 Immunization Single Admin 15:03:08 VIDEO CONTROL OPERATOR 2014 CPT-OV Office Visit 15:58:06 CDT CPT-J0897 Prolia 60 mg 08:45:38 CDT CPT-57612 Abx/Therapy Injection 08:45:38 CDT CPT-J3420 Vitamin B12 1000mcg (Cyanocobalamin) 09:26:20 VIDEO CONTROL OPERATOR CPT-59752 Abx/Therapy Injection 09:26:20 VIDEO CONTROL OPERATOR CPT-J3420 Vitamin B12 1000mcg (Cyanocobalamin) 09:44:40 VIDEO CONTROL OPERATOR CPT-09511 Abx/Therapy Injection 09:44:40 VIDEO CONTROL OPERATOR CPT-J3420 Vitamin B12 1000mcg (Cyanocobalamin) 09:15:54 VIDEO CONTROL OPERATOR CPT-31725 Abx/Therapy Injection 09:15:54 VIDEO CONTROL OPERATOR CPT-J3420 Vitamin B12 1000mcg (Cyanocobalamin) 09:46:44 VIDEO CONTROL OPERATOR CPT-14412 Abx/Therapy Injection 09:46:44 VIDEO CONTROL OPERATOR CPT-J3420 Vitamin B12 1000mcg (Cyanocobalamin) 09:47:34 VIDEO CONTROL OPERATOR CPT-57484 Abx/Therapy Injection 09:47:34 VIDEO CONTROL OPERATOR CPT-J3420 Vitamin B12 1000mcg (Cyanocobalamin) 14:35:50 VIDEO CONTROL OPERATOR CPT-J3420 Vitamin B12 1000mcg (Cyanocobalamin) 09:25:05 VIDEO CONTROL OPERATOR CPT-29302 Abx/Therapy Injection 09:25:05 VIDEO CONTROL OPERATOR CPT-G0008 Administration of Influenza Virus Vaccine 13:36:47 CDT CPT-70365 Fluzone High-Dose Intramuscular Suspension 11/15 13:36:47 CDT CPT-J0897 Prolia 60 mg 08:50:41 CDT CPT-52917 Abx/Therapy Injection 08:50:41 CDT CPT-60118 Bone Density 12:06:12 CDT CPT-79094 Bone Density 08:54:40 CDT CPT-OV Office Visit 15:37:02 CDT CPT-96945 Postop F/U Visit 15:47:49 CDT CPT-32815 Postop F/U Visit 15:21:02 CDT CPT-TCMH Transitional Care Mgmt-High 07:52:27 CDT 20 20/06/01 CPT-71358 Venipuncture Draw Fee 13:51:18 CDT CPT-85887 Venipuncture Draw Fee 10:14:55 VIDEO CONTROL OPERATOR CPT-03528 Venipuncture Draw Fee 13:39:45 VIDEO CONTROL OPERATOR CPT-OV Office Visit 15:11:22 VIDEO CONTROL OPERATOR CPT-25627 Venipuncture Draw Fee 09:20:49 VIDEO CONTROL OPERATOR CPT-91468 Venipuncture Draw Fee 16:52:15 VIDEO CONTROL OPERATOR CPT-07973 Venipuncture Draw Fee 10:37:24 VIDEO CONTROL OPERATOR CPT-78542 Venipuncture Draw Fee 08:21:21 VIDEO CONTROL OPERATOR CPT-23227 Venipuncture Draw Fee 08:30:20 VIDEO CONTROL OPERATOR CPT-76956 Venipuncture Draw Fee 14:53:21 VIDEO CONTROL OPERATOR CPT-86078 Venipuncture Draw Fee 09:40:56 VIDEO CONTROL OPERATOR CPT-35662 Venipuncture Draw Fee 10:30:47 VIDEO CONTROL OPERATOR CPT-96236 Venipuncture Draw Fee 10:46:17 VIDEO CONTROL OPERATOR CPT-12534 Venipuncture Draw Fee 11:12:45 VIDEO CONTROL OPERATOR CPT-44526 Venipuncture Draw Fee 09:53:33 VIDEO CONTROL OPERATOR CPT-68634 Venipuncture Draw Fee 11:53:51 VIDEO CONTROL OPERATOR CPT-74272 Venipuncture Draw Fee 10:33:50 VIDEO CONTROL OPERATOR CPT-39052 Venipuncture Draw Fee 10:05:01 VIDEO CONTROL OPERATOR CPT-11000 Venipuncture Draw Fee 14:32:52 VIDEO CONTROL OPERATOR CPT-61891 Venipuncture Draw Fee 09:46:13 VIDEO CONTROL OPERATOR CPT-70546 Venipuncture Draw Fee 11:34:27 VIDEO CONTROL OPERATOR CPT-22383 Venipuncture Draw Fee 13:17:16 VIDEO CONTROL OPERATOR CPT-40533 Venipuncture Draw Fee 12:05:39 CDT CPT-42258 Venipuncture Draw Fee 12:49:12 CDT CPT-53842 Venipuncture Draw Fee 12:37:18 CDT CPT-70159 Venipuncture Draw Fee 10:57:11 CDT CPT-25253 Venipuncture Draw Fee 13:47:40 CDT CPT-23629 Venipuncture Draw Fee 10:02:17 CDT CPT-56743 TB Tubersol 17:32:32 CDT CPT-OV Office Visit 16:21:53 CDT CPT-OV Office Visit 15:49:22 CDT CPT-OV Office Visit 17:16:31 CDT CPT-OV Office Visit 10:43:31 CDT
--- OUTSIDE RECORDS SUMMARY | 2019-02-09 12:58 | XMS REPORT | Clinical Summary ---
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 Kylie Hlot APRN Personal history of other specified dise ases ADENOCARCINOMA, ASCENDING COLON 153.6 Correction 2012 Hope Benavidez MD PhD Malignant neoplasm of ascending colon Hyperkalemia 276.7 Resolved Hope Benavidez MD PhD Hyperpotassemia GERD 530.81 Resolved Kylie Yokum COMMUTATOR [employer] Esophageal reflux Health maintenance exam V70.0 Resolved Adolfo Yates MD Routine general medical examination at a health care facility Anemia 285.9 Resolved Kylie Holt COMM[employer]ATOR [employer] Anemia, unspecified Personal history of malignant neoplasm [...] Sebaceous cyst, scalp 706.2 Resolved Kylieshubham Lundum COMM[employer]ATOR [employer] Sebaceous cyst Cervical lymphadenopathy, anterior, left 785.6 Resolv ed Kylie Escalonagabbium COMMUTATOR [employer] Enlargement of lymph nodes Need for prophylactic vaccination and inoculation against in fluenza V04.81 Active Citlaly Watkins RMA Need for prophylactic vaccination and inoculation against influenza Preventive health care V70.0 Active Kylie Polapari COMMUTATOR [employer] Routine general medical examination at a health care facility Thyroid nodule, left 241.0 Active Kylie Polagabbium A PRN Nontoxic uninodular goiter ABDOMINAL PAIN, RIGHT LOWER QUADRANT ICD-789.03 Inactive Kina Joshua COMMUTATOR [employer] ADENOCARCINOMA, COLON, 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 Dick Yates MD ABDOMINAL PAIN, GENERALIZED ICD-789.07 Inactive Hope Benavidez MD PhD FEVER UNSPECIFIED ICD-780.60 Inactive Hope cohn MD PhD UNSPECIFIED VENOUS INSUFFICIENCY ICD-459.81 [place] ctive Adam Yates MD ADENOCARCINOMA, 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 Inac tive Hope Benavidez MD PhD Hyperkalemia ICD-276.7 Inactive Hope Benavidez MD PhD GERD ICD-530.81 Inactive Kylie Holt COMMUTATOR [employer] 2015 Health maintenance exam ICD-V70.0 Bam Yates MD Anemia ICD-285.9 Inactive Kylie Lundum [employer]ATOR [employer] 07/24 Weakness ICD-780.79 Inactive Hope Benavidez MD P hD Aftercare following surgery of the teeth,oral cavity a nd digestive system, NEC ICD-V58.75 Inactive Adam Yates MD Colon cancer ICD-153.9 Inactive Adam luna MD Asymptomatic postmenopausal status (age-related) (natural) I CD-V49.81 Inactive Hope Benavidez MD PhD Dysuria ICD-788.1 Inactive Hope Benavidez MD PhD 201 05/19/01 Sebaceous cyst, scalp ICD-706.2 Inactive Tracy Lundum COMMUTATOR [employer] Cervical lymphadenopathy, anterior, left ICD-785.6 Inactive Kylie Lundum COMM[employer]ATOR [employer] Medication List Medication Instructions Start Date Stop Date Generic Name NDC Status Provider Patient Instruction VITAMIN D3 2000 UNIT ORAL CAPS Melaleuca-One daily CHOLECALCIFEROL 33182980116 Active Kylie Lundum [employer]ATOR [employer] Active PROBIOTIC DAILY ORAL CAPS Take one daily PROBIOTIC PRODUCT 79932125685 Active Kylie Yokum COMMUTATOR [employer]ER Active IRON 325 (65 FE) MG TABS 1 every other day FERR OUS SULFATE 71593177239 No Longer Active Kylie Yokum [employer]ATOR [employer] Active FLORANEX PACK 1 pack three times daily, for bowel health LACTOBACILLUS 16955789622 No Longer Active Kylie Yokum COMMUTATOR [employer] Active LOMOTIL 2.5-0.025 MG TABS 1 tab by mouth prn 4 DIPHENOXYLATE-ATROPINE 11294217740 No Longer Active Kylie Yokum COMMUTATOR [employer] Active MAGNESIUM GLUCONATE 250 MG TABS 1 tab tid 4 MAGNESIUM GLUCONATE 35388660331 No Longer Active Kylie Yokum COMMUTATOR [employer] Active CYANOCOBALAMIN 1000 MCG/ML INJ SOLN 1 injection every 2 weeks 20 20/01/03 CYANOCOBALAMIN 45710742190 No Longer Active Kylie Yokum COMMUTATOR [employer] Active ATENOLOL 25 MG ORAL TABS 1/2 pill by mouth daily, for headac hes, blood pressure ATENOLOL 31717213181 Active Kylie Yokum COMM[employer]ATOR [employer] Active PROPRANOLOL HCL 80 MG TABS 1 tab tue. and thur. 04/10 PROPRANOLOL HCL 80384309717 No Longer Active Hope Benavidez MD PhD A ctive VITAMIN D3 4000 IU 1 tab 3 times daily VITAMIN D3 4000 IU No Longer Active Hope Benavidez MD PhD Active BACTRIM DS 800-160 MG TABS 1 pill by mouth twice daily, for UTI SULFAMETHOXAZOLE-TRIMETHOPRIM 99769044933 No Longer Active A attila Benavidez MD PhD Active PROLIA 60 MG/ML SOLN 1 shot every 6 months for osteoprosis DENOSUMAB 96123143068 Active Hope Benavidez MD PhD Active CALCIUM + D + K 750-500-40 MG-UNT-MCG TABS 1 tab by mouth tw ice daily CALCIUM-VITAMIN D-VITAMIN K 17772941801 Active Hope landers MD PhD Active DAILY VALUE MULTIVITAMIN TABS 1 tab by mouth twice daily MULTIPLE VITAMIN 31891592954 Active Hope Benavidez MD PhD Active FISH OIL 306 MG CAPS 1 tab by mouth three times daily OMEGA-3 FATTY ACIDS 73678342449 Active Hope Benavidez MD PhD Active LUTEIN 10 MG TABS 1 tab daily LUTEIN 02226437038 Act cash Hope Benavidez MD PhD Active TRIAMTERENE-HCTZ 37.5-25 MG TABS 1 tab by mouth daily TRIAMTERENE-HCTZ 86828186344 Active Kylie Yokum COMMUTATOR [employer] Active CYCLOBENZAPRINE HCL 10 MG TABS 1 tablet by mouth three times daily as needed for headaches CYCLOBENZAPRINE HCL 89756502604 No Longe r Active Adam Yates MD Active OMEPRAZOLE 20 MG CPDR 1 tablet by mouth daily for GERD OMEPRAZOLE 76498650805 No Longer Active Adam Yates MD A ctive ZOFRAN 8 MG TABS 1 tab by mouth every 12 hours prn 201 05/16/09 ONDANSETRON HCL 77143188039 No Longer Active Adam Yates MD Active PHENADOZ 25 MG SUPP 1 every 4 hrs. PRN PROMETHA ZINE HCL 93821199503 No Longer Active Adam Yates MD Active POTASSIUM CHLORIDE 20 MEQ PACK by mouth twice a day prn POTASSIUM CHLORIDE 49962743679 No Longer Active Adam Yates MD Active PROMETHAZINE HCL 25 MG TABS 1 Q. 4 hr. PRN PROM ETHAZINE HCL 38924135314 No Longer Active Adam Yates MD Active INNOPRAN XL 120 MG [id number]-QSV Take one by mouth daily 2 PROPRANOLOL HCL SR BEADS 42042638747 No Longer Active Adam Yates MD A ctive FLAGYL 500 MG TABS 1 pill by mouth three times daily, for diarrh ea METRONIDAZOLE 00234309965 No Longer Active Hope Benavidez MD PhD Active DYAZIDE 37.5-25 MG CAPS 1 qd TRIAMTERENE-HC TZ 30887258720 No Longer Active Hope Benavidez MD PhD Active PROZAC 20 MG CAPS 1 q d FLUOXETINE HCL 07470 496949 No Longer Active Hope Benavidez MD PhD Active SIMVASTATIN 40 MG TABS 1 qd SIMVASTATIN 004 04403357 No Longer Active Adam Yates MD Active MELOXICAM 15 MG TABS 1 qd MELOXICAM 2257718 8736 No Longer Active Adam Yates MD Active IMODIUM A-D 2 MG TABS 2 onset at diarrhea and prn. LOPERAMIDE HCL 63782677763 Active Hope Benavidez MD PhD Active EXCEDRIN EXTRA STRENGTH 250-250-65 MG TABS 1-2 q6h PRN headache 201 04/16/21 [id number] 88932056510 Active Hope Benavidez MD PhD Active FLAGYL 500 MG TABS 1 qid METRONIDAZOLE 49997 093981 No Longer Active Adam Yates MD Active LEVAQUIN 750 MG TABS 1 qd LEVOFLOXACIN 5486 9055930 No Longer Active Adam Yates MD Active ADULT ASPIRIN LOW STRENGTH 81 MG TBDP 1 qd A SPIRIN 53752731092 Active Hope Benavidez MD PhD Active LEVAQUIN 750 MG TABS 1 qd LEVAQUIN 750 MG T ABS 314288 LEVOFLOXACIN Inactive FLAGYL 500 MG TABS 1 qid FLAGYL 500 MG TABS 004392 METRONIDAZOLE Inactive MELOXICAM 15 MG TABS 1 qd MELOXICAM 15 MG T ABS 117641 MELOXICAM Inactive SIMVASTATIN 40 MG TABS 1 qd SIMVASTATIN 40 MG TABS 533890 SIMVASTATIN Inactive PROZAC 20 MG CAPS 1 q d PROZAC 20 MG CAPS 31 0385 FLUOXETINE HCL Inactive DYAZIDE 37.5-25 MG CAPS 1 qd DYAZIDE 37.5 -25 MG CAPS 682033 TRIAMTERENE-HCTZ Inactive INNOPRAN XL 120 MG [id number] Take one by mouth daily 2 INNOPRAN XL 120 MG [id number] PROPRANOLOL HCL SR BEADS Inactive PROMETHAZINE HCL 25 MG TABS 1 Q. 4 hr. PRN PROMETHAZINE HCL 25 MG TABS 091826 PROMETHAZINE HCL Inactive POTASSIUM CHLORIDE 20 MEQ PACK by mouth twice a day prn POTASSIUM CHLORIDE 20 MEQ PACK 250180 POTASSIUM CHLORIDE Inactive PHENADOZ 25 MG SUPP 1 every 4 hrs. PRN PHENADOZ 2 5 MG SUPP 249140 PROMETHAZINE HCL Inactive ZOFRAN 8 MG TABS 1 tab by mouth every 12 hours prn 201 05/16/09 ZOFRAN 8 MG TABS 826677 ONDANSETRON HCL Inactive OMEPRAZOLE 20 MG CPDR 1 tablet by mouth daily for GERD OMEPRAZOLE 20 MG CPDR 351222 OMEPRAZOLE Inactive CYCLOBENZAPRINE HCL 10 MG TABS 1 tablet by mouth three times daily as needed for headaches CYCLOBENZAPRINE HCL 10 MG TABS 669013 CYCLOBENZAPRINE HCL Inactive VITAMIN D3 4000 IU 1 tab 3 times daily VITAMIN D3 4000 IU Inactive PROPRANOLOL HCL 80 MG TABS 1 tab tue. and thur. 04/10 PROPRANOLOL HCL 80 MG TABS 138384 PROPRANOLOL HCL Inactive CYANOCOBALAMIN 1000 MCG/ML INJ SOLN 1 injection every 2 weeks 20 20/01/03 CYANOCOBALAMIN 1000 MCG/ML INJ SOLN 369966 CYANOCOBALAM IN Inactive MAGNESIUM GLUCONATE 250 MG TABS 1 tab tid 4 MAGNESIUM GLUCONATE 250 MG TABS 127771 MAGNESIUM GLUCONATE Inactive LOMOTIL 2.5-0.025 MG TABS 1 tab by mouth prn 4 LOMOTIL 2.5- 0.025 MG TABS 8565271 DIPHENOXYLATE-ATROPINE Inactive FLORANEX PACK 1 pack three times daily, for bowel health FLORANEX PACK LACTOBACILLUS Inactive IRON 325 (65 FE) MG TABS 1 every other day IRON 325 (65 FE) MG TABS 243873 FERROUS SULFATE Inactive FLAGYL 500 MG TABS 1 pill by mouth three times daily, for diarrh ea FLAGYL 500 MG TABS 210726 METRONIDAZOLE Inactive BACTRIM DS 800-160 MG TABS 1 pill by mouth twice daily, for UTI BACTRIM DS 800-160 MG TABS 087781 SULFAMETHOXAZOLE-TRIM ETHOPRIM Inactive Advance Directives Directive Description [...] Panel - Chemistry sodium, serum 142 mmol/L 007-035 1512/04/20 carbon dioxide, venous blood 34.7 mmol/L 21.0-32 .0 potassium, serum 3.5 mmol/L 3.5-5.2 chloride, serum 102 mmol/L 98-107 blood glucose 102 mg/dL 65-110 urea nitrogen, blood 24 mg/dL 7-18 creatinine, serum 1.37 mg/dL 0.55-1.30 alanine aminotransferase (SGPT), serum 72 U/L -78 aspartate aminotransferase (SGOT), serum 44 U/L 15-37 calcium, serum 9.0 mg/dL 8.5-10.1 bilirubin, serum, total 0.50 mg/dL 0.00-1.00 sodium, serum 138 mmol/L 139-192 4212/10/23 carbon dioxide, venous blood 29.5 mmol/L 21.0-32 [...] 11 .6-14.8 platelet count 189 10^3/MM^3 10*3/mm3 990-861 2491/04/20 leukocyte count, blood 5.9 10^3/MM^3 10*3/mm3 4.6-10.2 [...] 1.24 m[iU]/mL 0.36-3.74 cholesterol, serum 227 mg/dL 290-318 0885/10/23 triglyceride, serum, fasting 144 mg/dL 30-200 HDL cholesterol, serum 60 mg/dL 32-96 LDL cholesterol, serum 138 mg/dL 0-130 Lab Report: Lipid Panel, MICROALBUMIN, T hyroid Stimulating Hormone (L) - Lab microalbumin, urine 10 0-19 Encounters Code Encounter Date Provider Facility CPT-04772 Level 4 Est. Patient 17:00:48 CDT Kylie Lund [facility] [place] 2] CPT-69981 Level 3 Est. Patient 13:15:54 CDT Kylie Lund [facility] CPT-28476 Level 3 Est. Patient 09:10:11 CDT Kylie Lund [facility] CPT-91504 Level 4 Est. Patient 12:08:30 [employer] STE[employer] Hope cohn MD PhD [facility] CPT-52105 Level 4 Est. Patient 19:08:42 [employer] STE[employer] Hope cohn MD PhD [facility] CPT-30980 Level 4 Est. Patient 20:04:51 CDT Hope cohn MD PhD [facility] CPT-97241 Level 3 New Patient 01:46:11 [employer] STE[employer] Hope landers MD PhD [facility] Procedures Code Procedure Name Date Entry Date Standard Desc ription CPT-G0438 Initial Annual Wellness Exam 14:19:57 CD T CPT-G0009 Administration of Pneumococcal Vaccine 9 11:36:25 CDT CPT-76707 Prevnar 13 Intramuscular Suspension 1 1:36:25 CDT CPT-90398 Prevnar 13 Intramuscular Suspension 1 0:40:58 CDT CPT-J0897 Prolia 60 mg 10:37:16 CDT CPT-60296 Abx/Therapy Injection 10:37:16 CDT CPT-J0897 Prolia 60 mg 16:09:34 CRAB STEAMER CPT-J0897 Prolia 60 mg 11:10:35 [employer]AB STEAMER CPT-39201 Abx/Therapy Injection 11:10:35 CRAB STEAMER CPT-000 Give Appropriate Flu Vaccine 17:01:15 CRAB STEAMER 2 CPT-21525 Fluzone High Dose (65+) 15:03:08 CRAB STEAMER 02/15 CPT-53607 Immunization Single Admin 15:03:08 CRAB STEAMER 2014 CPT-OV Office Visit 15:58:06 CDT CPT-J0897 Prolia 60 mg 08:45:38 CDT CPT-79179 Abx/Therapy Injection 08:45:38 CDT CPT-J3420 Vitamin B12 1000mcg (Cyanocobalamin) 09:26:20 CRAB STEAMER CPT-05524 Abx/Therapy Injection 09:26:20 CRAB STEAMER CPT-J3420 Vitamin B12 1000mcg (Cyanocobalamin) 09:44:40 CRAB STEAMER CPT-56409 Abx/Therapy Injection 09:44:40 CRAB STEAMER CPT-J3420 Vitamin B12 1000mcg (Cyanocobalamin) 09:15:54 CRAB STEAMER CPT-75557 Abx/Therapy Injection 09:15:54 CRAB STEAMER CPT-J3420 Vitamin B12 1000mcg (Cyanocobalamin) 09:46:44 CRAB STEAMER CPT-27569 Abx/Therapy Injection 09:46:44 CRAB STEAMER CPT-J3420 Vitamin B12 1000mcg (Cyanocobalamin) 09:47:34 CRAB STEAMER CPT-59206 Abx/Therapy Injection 09:47:34 CRAB STEAMER CPT-J3420 Vitamin B12 1000mcg (Cyanocobalamin) 14:35:50 CRAB STEAMER CPT-J3420 Vitamin B12 1000mcg (Cyanocobalamin) 09:25:05 CRAB STEAMER CPT-64456 Abx/Therapy Injection 09:25:05 CRAB STEAMER CPT-G0008 Administration of Influenza Virus Vaccine 13:36:47 CDT CPT-67422 Fluzone High-Dose Intramuscular Suspension 11/15 13:36:47 CDT CPT-J0897 Prolia 60 mg 08:50:41 CDT CPT-00283 Abx/Therapy Injection 08:50:41 CDT CPT-15643 Bone Density 12:06:12 CDT CPT-67749 Bone Density 08:54:40 CDT CPT-OV Office Visit 15:37:02 CDT CPT-72465 Postop F/U Visit 15:47:49 CDT CPT-91474 Postop F/U Visit 15:21:02 CDT CPT-TCMH Transitional Care Mgmt-High 07:52:27 CDT 20 20/06/01 CPT-61110 Venipuncture Draw Fee 13:51:18 CDT CPT-47537 Venipuncture Draw Fee 10:14:55 CR[employer] STEAMER CPT-30081 Venipuncture Draw Fee 13:39:45 CRAB STEAMER CPT-OV Office Visit 15:11:22 CRAB STEAMER CPT-16069 Venipuncture Draw Fee 09:20:49 CRAB STEAMER CPT-73190 Venipuncture Draw Fee 16:52:15 CRAB STEAMER CPT-65541 Venipuncture Draw Fee 10:37:24 CRAB STEAMER CPT-15029 Venipuncture Draw Fee 08:21:21 CRAB STEAMER CPT-62820 Venipuncture Draw Fee 08:30:20 CRAB STEAMER CPT-38962 Venipuncture Draw Fee 14:53:21 CRAB STEAMER CPT-32894 Venipuncture Draw Fee 09:40:56 CRAB STEAMER CPT-01696 Venipuncture Draw Fee 10:30:47 CRAB STEAMER CPT-92197 Venipuncture Draw Fee 10:46:17 CRAB STEAMER CPT-73479 Venipuncture Draw Fee 11:12:45 CRAB STEAMER CPT-52010 Venipuncture Draw Fee 09:53:33 CRAB STEAMER CPT-84220 Venipuncture Draw Fee 11:53:51 CRAB STEAMER CPT-46664 Venipuncture Draw Fee 10:33:50 CRAB STEAMER CPT-85675 Venipuncture Draw Fee 10:05:01 CRAB STEAMER CPT-79991 Venipuncture Draw Fee 14:32:52 CRAB STEAMER CPT-85115 Venipuncture Draw Fee 09:46:13 CRAB STEAMER CPT-84800 Venipuncture Draw Fee 11:34:27 CRAB STEAMER CPT-59434 Venipuncture Draw Fee 13:17:16 CRAB STEAMER CPT-03774 Venipuncture Draw Fee 12:05:39 CDT CPT-80640 Venipuncture Draw Fee 12:49:12 CDT CPT-59857 Venipuncture Draw Fee 12:37:18 CDT CPT-61553 Venipuncture Draw Fee 10:57:11 CDT CPT-05142 Venipuncture Draw Fee 13:47:40 CDT CPT-41611 Venipuncture Draw Fee 10:02:17 CDT CPT-12067 TB Tubersol 17:32:32 CDT CPT-OV Office Visit 16:21:53 CDT CPT-OV Office Visit 15:49:22 CDT CPT-OV Office Visit 17:16:31 CDT CPT-OV Office Visit 10:43:31 CDT
--- OUTSIDE RECORDS SUMMARY | 2019-02-09 12:58 | XMS REPORT | Clinical Summary ---
Author Author Admin, Florecita Munoz Organization [facility] [employer] Address Unknown Phone Unavailable Allergies, Adverse Reactions, [...] Sebaceous cyst, scalp 706.2 Resolved Kylie Yokum FINANCIAL AGENT Sebaceous cyst Cervical lymphadenopathy, anterior, left 785.6 Resolv ed Kylie Yokum FINANCIAL AGENT Enlargement of lymph nodes Need for prophylactic vaccination and inoculation against in fluenza V04.81 Resolved Adam Yates MD Need for prophylactic vaccination and inoculation against influenza Preventive health care V70.0 Active Kylie Yokum FINANCIAL AGENT Routine general medical examination at a health care facility Thyroid nodule, left 241.0 Active Kylie Yokum A PRN Nontoxic uninodular goiter Screening mammogram V76.12 Active Kylie Yokum AP RN Other screening mammogram Mandy 706.2 Resolved Kylie Yokum FINANCIAL AGENT Sebaceous cyst Colon cancer, ascending 153.6 Resolved Kylie Yok um FINANCIAL AGENT Malignant neoplasm of ascending colon Foot pain, left 729.5 Active Sulema 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 Pain in limb Splinter 919.6 Active Kylie Yokum FINANCIAL AGENT Superficial foreign body (splinter) of other, multiple, and unspecified sites, without major open wound and without mention of infection Rash 782.1 Active Kylie Yokum FINANCIAL AGENT R aurora and other nonspecific skin eruption ABDOMINAL PAIN, RIGHT LOWER QUADRANT ICD-789.03 Inactive Kina Joshua FINANCIAL AGENT ADENOCARCINOMA, COLON, 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 Dick Yates MD ABDOMINAL PAIN, GENERALIZED ICD-789.07 Inactive Hope Benavidez MD PhD FEVER UNSPECIFIED ICD-780.60 Inactive Hope cohn MD PhD UNSPECIFIED VENOUS INSUFFICIENCY ICD-459.81 Elda ctive Adam Yates MD ADENOCARCINOMA, 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 Inac tive Hope Benavidez MD PhD Hyperkalemia ICD-276.7 Inactive Hope Benavidez MD PhD GERD ICD-530.81 Inactive Kylie Yanet FINANCIAL AGENT 2015 Health maintenance exam ICD-V70.0 Bam Yates MD Anemia ICD-285.9 Inactive Kylie Yanet FINANCIAL AGENT 07/24 Hypomagnesemia ICD-275.2 Inactive Kylie Yogabbium FINANCIAL AGENT Weakness ICD-780.79 Inactive Hope Benavidez MD P [...] Sebaceous cyst, scalp ICD-706.2 Inactive Tracy Lundum FINANCIAL AGENT Cervical lymphadenopathy, anterior, left ICD-785.6 Inactive Kylie Lundum FINANCIAL AGENT Need for prophylactic vaccination and inoculation against in fluenza ICD-V04.81 Inactive Adam Yates MD Mandy ICD-706.2 Inactive Kylie Lundum AMY 07/20 Colon cancer, ascending ICD-153.6 Inactive Gabbi Escalonagabbioliver AMY Medication List Medication Instructions Start Date Stop Date Generic Name ND Status Provider Patient Instruction VOLTAREN 1 % TRANSDERMAL GEL apply q 6-8 hour to left arm as needed for pain DICLOFENAC SODIUM 64027299608 Active Kylie Lundum FINANCIAL AGENT Active COQ10 100 MG ORAL CAPSULE 1 daily COENZYME Q10 780412 76986 Active LETY Nation Active VITAMIN D3 2000 UNIT ORAL CAPSULE Melaleuca-One daily CHOLECALCIFEROL 54403173657 Active Kylie Lundum FINANCIAL AGENT Active PROBIOTIC DAILY ORAL CAPSULE Take one daily PROBIO TIC PRODUCT 35825468806 Active Kylie Escalonakum FINANCIAL AGENT Active IRON 325 (65 Fe) MG ORAL TABLET 1 every other day FERROUS SULFATE 68905038994 No Longer Active Kylie Lundum FINANCIAL AGENT Active FLORANEX ORAL PACKET 1 pack three times daily, for bowel health LACTOBACILLUS 94217303657 No Longer Active Kylie Kevonum FINANCIAL AGENT Active LOMOTIL 2.5-0.025 MG ORAL TABLET 1 tab by mouth prn 23/10/23 DIPHENOXYLATE-ATROPINE 94729289624 No Longer Active Kylie Yokum FINANCIAL AGENT Active MAGNESIUM GLUCONATE 250 MG ORAL TABLET 1 tab tid 23/10/23 MAGNESIUM GLUCONATE 40497714481 No Longer Active Kylie Yokum FINANCIAL AGENT Active CYANOCOBALAMIN 1000 MCG/ML INJECTION SOLUTION 1 injection ev ruben 2 weeks CYANOCOBALAMIN 99794724616 No Longer Active Kylie Lund um FINANCIAL AGENT Active ATENOLOL 25 MG ORAL TABLET 1/2 pill by mouth daily, fo r headaches, blood pressure ATENOLOL 99405925299 Active Kylie Lundum FINANCIAL AGENT Active PROPRANOLOL HCL 80 MG ORAL TABLET 1 tab tue. and thur. PROPRANOLOL HCL 26032091401 No Longer Active Hope Benavidez MD PhD A ctive VITAMIN D3 4000 IU 1 tab 3 times daily VITAMIN D3 4000 IU No Longer Active Hope Benavidez MD PhD Active BACTRIM DS 800-160 MG ORAL TABLET 1 pill by mouth twice claudio y, for UTI SULFAMETHOXAZOLE-TRIMETHOPRIM 29971977746 No Longer Active Hope Benavidez MD PhD Active PROLIA 60 MG/ML SUBCUTANEOUS SOLUTION 1 shot every 6 months for osteoprosis DENOSUMAB 14291560345 Active Hope Benavidez MD PhD Active CALCIUM + D + K 750-500-40 MG-UNT-MCG ORAL TABLET 1 tab by [facility] twice daily CALCIUM-VITAMIN D-VITAMIN K 73639438905 Active Hope valdez MD PhD Active DAILY VALUE MULTIVITAMIN ORAL TABLET 1 tab by mouth twice daily 201 05/16/14 MULTIPLE VITAMIN 23380265644 Active Hope Benavidez MD PhD Acti ve FISH OIL 306 MG CAPS 1 tab by mouth three times daily OMEGA-3 FATTY ACIDS 60450269063 Active Hope Benavidez MD PhD Active LUTEIN 10 MG ORAL TABLET 1 tab daily LUTEIN 13381007 408 Active Hope Benavidez MD PhD Active TRIAMTERENE-HCTZ 37.5-25 MG ORAL TABLET 1 tab by mouth daily 10/22 TRIAMTERENE-HCTZ 15846426584 Active Kylie Escalonagabbioliver FINANCIAL AGENT Active CYCLOBENZAPRINE HCL 10 MG ORAL TABLET 1 tablet by mout h three times daily as needed for headaches CYCLOBENZAPRINE HCL 09305467850 No Longer Active Adam Yates MD Active OMEPRAZOLE 20 MG ORAL CAPSULE DELAYED RELEASE 1 tablet by mo [facility] daily for GERD OMEPRAZOLE 81614579931 No Longer Active Adam Yates MD Active ZOFRAN 8 MG ORAL TABLET 1 tab by mouth every 12 hours prn 4 ONDANSETRON HCL 91430259348 No Longer Active Adam Yates MD Active PHENADOZ 25 MG RECTAL SUPPOSITORY 1 every 4 hrs. PRN 2 PROMETHAZINE HCL 87336942286 No Longer Active Adam Yates MD A ctive POTASSIUM CHLORIDE 20 MEQ ORAL PACKET by mouth twice a day prn 2 POTASSIUM CHLORIDE 12993815177 No Longer Active Adam Carpenter MD Active PROMETHAZINE HCL 25 MG ORAL TABLET 1 Q. 4 hr. PRN PROMETHAZINE HCL 63376803452 No Longer Active Adam Yates MD Active INNOPRAN XL 120 MG ORAL CAPSULE EXTENDED RELEASE 24 HO UR Take one by mouth daily PROPRANOLOL HCL SR BEADS 43010206272 No Longer Active Adam Yates MD Active FLAGYL 500 MG ORAL TABLET 1 pill by mouth three times daily, for diarrhea METRONIDAZOLE 04003122598 No Longer Active Hope landers MD PhD Active DYAZIDE 37.5-25 MG ORAL CAPSULE 1 qd TRIA MTERENE-HCTZ 33770005245 No Longer Active Hope Benavidez MD PhD Active PROZAC 20 MG ORAL CAPSULE 1 q d FLUOXETINE HCL 58705994274 No Longer Active Hope Benavidez MD PhD Active SIMVASTATIN 40 MG ORAL TABLET 1 qd SIMVAS TATIN 58386842008 No Longer Active Adam Yates MD Active MELOXICAM 15 MG ORAL TABLET 1 qd MELOXICAM 02298940553 No Longer Active Adam Yates MD Active IMODIUM A-D 2 MG ORAL TABLET 2 onset at diarrhea and prn. LOPERAMIDE HCL 85579319993 Active Hope Benavidez MD PhD Active EXCEDRIN EXTRA STRENGTH 250-250-65 MG ORAL TABLET 1-2 q6h WA N headache [id number] 33802055890 Active Hope Benavidez MD PhD Active FLAGYL 500 MG ORAL TABLET 1 qid METRONIDAZOL E 94310376731 No Longer Active Adam Yates MD Active LEVAQUIN 750 MG ORAL TABLET 1 qd LEVOFLOXAC IN 98878638481 No Longer Active Adam Yates MD Active ADULT ASPIRIN LOW STRENGTH 81 MG ORAL TABLET DISINTEGRATING 1 qd ASPIRIN 49033245424 Active Hope Benavidez MD PhD Active LEVAQUIN 750 MG ORAL TABLET 1 qd LEVAQUIN 750 MG ORAL TABLET 735097 LEVOFLOXACIN Inactive FLAGYL 500 MG ORAL TABLET 1 qid FLAGYL 500 MG ORAL TABLET 165998 METRONIDAZOLE Inactive MELOXICAM 15 MG ORAL TABLET 1 qd MELOXICAM 15 MG ORAL TABLET 619157 MELOXICAM Inactive SIMVASTATIN 40 MG ORAL TABLET 1 qd SIMVASTATIN 40 MG ORAL TABLET 160425 SIMVASTATIN Inactive PROZAC 20 MG ORAL CAPSULE 1 q d PROZAC 20 MG ORAL CAPSULE 256400 FLUOXETINE HCL Inactive DYAZIDE 37.5-25 MG ORAL CAPSULE 1 qd 5 DYAZIDE 37.5-25 MG ORAL CAPSULE 534159 TRIAMTERENE-HCTZ Inactive INNOPRAN XL 120 MG ORAL CAPSULE EXTENDED RELEASE 24 HO UR Take one by mouth daily INNOPRAN XL 120 MG ORAL CAPSULE EXTENDED RELEASE 24 HOUR PROPRANOLOL HCL SR BEADS Inactive PROMETHAZINE HCL 25 MG ORAL TABLET 1 Q. 4 hr. PRN 2013 PROMETHAZINE HCL 25 MG ORAL TABLET 812032 PROMETHAZINE HCL Inactive POTASSIUM CHLORIDE 20 MEQ ORAL PACKET by mouth twice a day prn 2 POTASSIUM CHLORIDE 20 MEQ ORAL PACKET 7953005 POTASSIUM CHLORIDE Inactive PHENADOZ 25 MG RECTAL SUPPOSITORY 1 every 4 hrs. PRN 2 PHENADOZ 25 MG RECTAL SUPPOSITORY 799548 PROMETHAZINE HCL Inactive ZOFRAN 8 MG ORAL TABLET 1 tab by mouth every 12 hours prn 4 ZOFRAN 8 MG ORAL TABLET 013735 ONDANSETRON HCL Inactive OMEPRAZOLE 20 MG ORAL CAPSULE DELAYED RELEASE 1 tablet by mo uth daily for GERD OMEPRAZOLE 20 MG ORAL CAPSULE DELAYED RELEASE 19 8051 OMEPRAZOLE Inactive CYCLOBENZAPRINE HCL 10 MG ORAL TABLET 1 tablet by mout h three times daily as needed for headaches CYCLOBENZAPRINE HCL 10 MG ORAL TABLET 849188 CYCLOBENZAPRINE HCL Inactive VITAMIN D3 4000 IU 1 tab 3 times daily VITAMIN D3 4000 IU Inactive PROPRANOLOL HCL 80 MG ORAL TABLET 1 tab tue. and thur. PROPRANOLOL HCL 80 MG ORAL TABLET 776200 PROPRANOLOL HCL Inacti ve CYANOCOBALAMIN 1000 MCG/ML INJECTION SOLUTION 1 injection ev ruben 2 weeks CYANOCOBALAMIN 1000 MCG/ML INJECTION SOLUTION 30 9594 CYANOCOBALAMIN Inactive MAGNESIUM GLUCONATE 250 MG ORAL TABLET 1 tab tid 20 23/10/23 MAGNESIUM GLUCONATE 250 MG ORAL TABLET 699029 MAGNESIUM GLUCONATE Inactive LOMOTIL 2.5-0.025 MG ORAL TABLET 1 tab by mouth prn 20 23/10/23 LOMOTIL 2.5-0.025 MG ORAL TABLET 9403401 DIPHENOXYLATE-ATROPINE Inac tive FLORANEX ORAL PACKET 1 pack three times daily, for bowel health FLORANEX ORAL PACKET LACTOBACILLUS Inactive IRON 325 (65 Fe) MG ORAL TABLET 1 every other day 2015 IRON 325 (65 Fe) MG ORAL TABLET 687779 FERROUS SULFATE Inactive FLAGYL 500 MG ORAL TABLET 1 pill by mouth three times daily, for diarrhea FLAGYL 500 MG ORAL TABLET 655533 METRONIDAZOLE I nactive BACTRIM DS 800-160 MG ORAL TABLET 1 pill by mouth twice claudio y, for UTI BACTRIM DS 800-160 MG ORAL TABLET 846985 SULFAMETHOXAZOLE-TRIMETHOPRIM Inactive Advance Directives Directive Description Start [...] 11 .0-15.0 platelet count 157 THOUSAND/UL 10*3/mm3 427-781 1927/04/20 mean platelet volume 8.9 fL 7.5-12.5 Lab Report: CEA - Serology carcinoembryonic antigen 0.9 ng/mL Lab Report: Lipid Panel, Calcium - Chemi stry cholesterol, serum 200 mg/dL 425-995 9259/11/22 triglyceride, serum, fasting 129 mg/dL 30-200 HDL cholesterol, serum 56 mg/dL 32-96 LDL cholesterol, serum 118 mg/dL 0-130 calcium, serum 9.0 mg/dL 8.5-10.1 Lab Report: MicroAlb Random w/creat/6517 - Urinalysis microalbumin/total urine volume 8 mg/L Units converted. See lab report for original value. microalbumin/creatinine ratio, urine 15 MCG/MG CREAT mg/L <30 Encounters Code Encounter Date Provider Facility CPT-73202 Level 3 Est. Patient 17:54:48 [facility] Level 3 Est. Patient 16:26:30 CDT Kina blackmon [facility] CPT-85684 Level 3 New Patient 16:22:01 FILM PAINTER Adam Yates MD [facility] CPT-41368 Level 4 Est. Patient 17:00:48 CDT Kylie Lund [facility] CPT-30727 Level 3 Est. Patient 13:15:54 CDT Kylie Lund [facility] CPT-71084 Level 3 Est. Patient 09:10:11 CDT Kylie Lund [facility] CPT-26904 Level 4 Est. Patient 12:08:30 FILM PAINTER Hope cohn MD [facility] CPT-09914 Level 4 Est. Patient 19:08:42 FILM PAINTER Hope cohn MD [facility] CPT-18419 Level 4 Est. Patient 20:04:51 CDT Hope cohn MD [facility] CPT-67816 Level 3 New Patient 01:46:11 FILM PAINTER Hpoe landers MD [facility] Procedures Code Procedure Name Date Entry Date Standard Desc ription CPT-29064 First Vx - Ix admin for Medicare patients 11:19:30 CDT CPT-26250 Fluzone High-Dose Intramuscular Suspension 12/07 11:19:30 CDT CPT-J0897 Prolia 60 mg 14:55:42 CDT CPT-50263 Abx/Therapy Injection 14:55:42 CDT CPT-90431 Bone Density - XRAY USE ONLY 10:27:12 CDT 2 CPT-G0439 Subsequent Annual Wellness Exam 17:54:53 CDT CPT-26275 Foot, left, comp min 3V - XRAY USE ONLY 12:22:49 CDT CPT-G0009 Administration of Pneumococcal Vaccine 3 12:18:00 CDT CPT-07697 Pneumovax 23 Injection Injectable 25 MCG /0.5ML 12:18:00 CDT CPT-J0897 Prolia 60 mg 14:14:16 FILM PAINTER CPT-14517 Abx/Therapy Injection 14:14:15 FILM PAINTER CPT-66319 Lipid - LAB USE ONLY 10:01:52 FILM PAINTER 2 CPT-29995 Calcium - LAB USE ONLY 10:01:51 FILM PAINTER CPT-50800 Venipuncture Draw Fee 10:01:51 FILM PAINTER CPT-LR Lesion Removal 16:22:01 FILM PAINTER CPT-59369 TSH - LAB USE ONLY 14:26:02 CDT CPT-20100 CMP - LAB USE ONLY 14:26:01 CDT CPT-76745 CBC with Diff - LAB USE ONLY 14:26:01 CDT 2 CPT-93429 Venipuncture Draw Fee 14:26:01 CDT CPT-13676 First Vx - Ix admin for Medicare patients 13:27:08 CDT CPT-86125 Fluzone High-Dose Intramuscular Suspension 11/26 13:27:08 CDT CPT-G0438 Initial Annual Wellness Exam 14:19:57 CD T CPT-G0009 Administration of Pneumococcal Vaccine 9 11:36:25 CDT CPT-00664 Prevnar 13 Intramuscular Suspension 1 1:36:25 CDT CPT-16683 Prevnar 13 Intramuscular Suspension 1 0:40:58 CDT CPT-J0897 Prolia 60 mg 10:37:16 CDT CPT-79222 Abx/Therapy Injection 10:37:16 CDT CPT-J0897 Prolia 60 mg 16:09:34 FILM PAINTER CPT-J0897 Prolia 60 mg 11:10:35 FILM PAINTER CPT-33804 Abx/Therapy Injection 11:10:35 FILM PAINTER CPT-000 Give Appropriate Flu Vaccine 17:01:15 FILM PAINTER 2 CPT-22038 Fluzone High Dose (65+) 15:03:08 FILM PAINTER 02/15 CPT-87962 Immunization Single Admin 15:03:08 FILM PAINTER 2014 CPT-OV Office Visit 15:58:06 CDT CPT-J0897 Prolia 60 mg 08:45:38 CDT CPT-51677 Abx/Therapy Injection 08:45:38 CDT CPT-J3420 Vitamin B12 1000mcg (Cyanocobalamin) 09:26:20 FILM PAINTER CPT-36325 Abx/Therapy Injection 09:26:20 FILM PAINTER CPT-J3420 Vitamin B12 1000mcg (Cyanocobalamin) 09:44:40 FILM PAINTER CPT-73771 Abx/Therapy Injection 09:44:40 FILM PAINTER CPT-J3420 Vitamin B12 1000mcg (Cyanocobalamin) 09:15:54 FILM PAINTER CPT-03036 Abx/Therapy Injection 09:15:54 FILM PAINTER CPT-J3420 Vitamin B12 1000mcg (Cyanocobalamin) 09:46:44 FILM PAINTER CPT-13225 Abx/Therapy Injection 09:46:44 FILM PAINTER CPT-J3420 Vitamin B12 1000mcg (Cyanocobalamin) 09:47:34 FILM PAINTER CPT-43050 Abx/Therapy Injection 09:47:34 FILM PAINTER CPT-J3420 Vitamin B12 1000mcg (Cyanocobalamin) 14:35:50 FILM PAINTER CPT-J3420 Vitamin B12 1000mcg (Cyanocobalamin) 09:25:05 FILM PAINTER CPT-91564 Abx/Therapy Injection 09:25:05 FILM PAINTER CPT-G0008 Administration of Influenza Virus Vaccine 13:36:47 CDT CPT-80225 Fluzone High-Dose Intramuscular Suspension 11/15 13:36:47 CDT CPT-J0897 Prolia 60 mg 08:50:41 CDT CPT-81125 Abx/Therapy Injection 08:50:41 CDT CPT-79943 Bone Density 12:06:12 CDT CPT-97387 Bone Density 08:54:40 CDT CPT-OV Office Visit 15:37:02 CDT CPT-58996 Postop F/U Visit 15:47:49 CDT CPT-90937 Postop F/U Visit 15:21:02 CDT CPT-[facility] Transitional Care Mgmt-High 07:52:27 CDT 20 20/06/01 CPT-27676 Venipuncture Draw Fee 13:51:18 CDT CPT-21720 Venipuncture Draw Fee 10:14:55 FILM PAINTER CPT-88560 Venipuncture Draw Fee 13:39:45 FILM PAINTER CPT-OV Office Visit 15:11:22 FILM PAINTER CPT-71869 Venipuncture Draw Fee 09:20:49 FILM PAINTER CPT-38446 Venipuncture Draw Fee 16:52:15 FILM PAINTER CPT-41681 Venipuncture Draw Fee 10:37:24 FILM PAINTER CPT-32184 Venipuncture Draw Fee 08:21:21 FILM PAINTER CPT-53447 Venipuncture Draw Fee 08:30:20 FILM PAINTER CPT-93693 Venipuncture Draw Fee 14:53:21 FILM PAINTER CPT-81615 Venipuncture Draw Fee 09:40:56 FILM PAINTER CPT-66178 Venipuncture Draw Fee 10:30:47 FILM PAINTER CPT-46912 Venipuncture Draw Fee 10:46:17 FILM PAINTER CPT-60274 Venipuncture Draw Fee 11:12:45 FILM PAINTER CPT-39261 Venipuncture Draw Fee 09:53:33 FILM PAINTER CPT-16954 Venipuncture Draw Fee 11:53:51 FILM PAINTER CPT-15887 Venipuncture Draw Fee 10:33:50 FILM PAINTER CPT-67161 Venipuncture Draw Fee 10:05:01 FILM PAINTER CPT-45977 Venipuncture Draw Fee 14:32:52 FILM PAINTER CPT-35810 Venipuncture Draw Fee 09:46:13 FILM PAINTER CPT-36564 Venipuncture Draw Fee 11:34:27 FILM PAINTER CPT-24967 Venipuncture Draw Fee 13:17:16 FILM PAINTER CPT-53334 Venipuncture Draw Fee 12:05:39 CDT CPT-19475 Venipuncture Draw Fee 12:49:12 CDT CPT-00583 Venipuncture Draw Fee 12:37:18 CDT CPT-98689 Venipuncture Draw Fee 10:57:11 CDT CPT-03645 Venipuncture Draw Fee 13:47:40 CDT CPT-05016 Venipuncture Draw Fee 10:02:17 CDT CPT-90237 TB Tubersol 17:32:32 CDT CPT-OV Office Visit 16:21:53 CDT CPT-OV Office Visit 15:49:22 CDT CPT-OV Office Visit 17:16:31 CDT CPT-OV Office Visit 10:43:31 CDT
--- OUTSIDE RECORDS SUMMARY | 2019-02-09 12:59 | XMS REPORT | Clinical Summary ---
Author Author Renaldo, Florecita Munoz Organization [facility] [employer] Address Unknown Phone Unavailable Allergies, Adverse Reactions, [...] PhD Hyperpotassemia GERD 530.81 Resolved Kylie Yokum AUDIENCE DEVELOPMENT MANAGER Esophageal reflux Health maintenance exam V70.0 Resolved Adolfo Yates MD Routine general medical examination at a health care facility Anemia 285.9 Resolved Kylie Yanet AUDIENCE DEVELOPMENT MANAGER Anemia, unspecified Personal history of malignant neoplasm of large intestine V10.05 Active Adam Yates MD Personal history of malignant neoplasm of large intestine Hypomagnesemia 275.2 Resolved Kylie Yanet AUDIENCE DEVELOPMENT MANAGER Disorders of magnesium metabolism Weakness [...] Sebaceous cyst, scalp 706.2 Resolved Kylie Yokum AUDIENCE DEVELOPMENT MANAGER Sebaceous cyst Cervical lymphadenopathy, anterior, left 785.6 Resolv ed Kylie Yokum AUDIENCE DEVELOPMENT MANAGER Enlargement of lymph nodes Need for prophylactic vaccination and inoculation against in fluenza V04.81 Resolved Adam Yates MD Need for prophylactic vaccination and inoculation against influenza Preventive health care V70.0 Active Kylie Yokum AUDIENCE DEVELOPMENT MANAGER Routine general medical examination at a health care facility Thyroid nodule, left 241.0 Active Kylie Yokum A PRN Nontoxic uninodular goiter Screening mammogram V76.12 Active Kylie Lundum AP RN Other screening mammogram Mandy 706.2 Resolved Kylie Yokum AUDIENCE DEVELOPMENT MANAGER Sebaceous cyst Colon cancer, ascending 153.6 Resolved Kylie Yok um AUDIENCE DEVELOPMENT MANAGER Malignant neoplasm of ascending colon Foot pain, left 729.5 Active Sulema Naff CLINIC BUSINESS MANAGER Pain in limb Splinter 919.6 Active Kylie Yokum AUDIENCE DEVELOPMENT MANAGER Superficial foreign body (splinter) of other, multiple, and unspecified sites, without major open wound and without mention of infection ABDOMINAL PAIN, RIGHT LOWER QUADRANT ICD-789.03 Inactive Kina Joshua AUDIENCE DEVELOPMENT MANAGER ADENOCARCINOMA, COLON, 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 Dick Yates MD FEVER UNSPECIFIED ICD-780.60 Inactive Hope cohn MD PhD UNSPECIFIED VENOUS INSUFFICIENCY ICD-459.81 Almena ctive Adam Yates MD ADENOCARCINOMA, ASCENDING COLON ICD-153.6 Inac abdelrahman Benavidez MD PhD Hyperkalemia ICD-276.7 Inactive Hope Benavidez MD PhD GERD ICD-530.81 Inactive Kylieshubham Holt AUDIENCE DEVELOPMENT MANAGER 2015 Health maintenance exam ICD-V70.0 Bam Yates MD Anemia ICD-285.9 Inactive Kylie Yanet AUDIENCE DEVELOPMENT MANAGER 07/24 Hypomagnesemia ICD-275.2 Inactive Kylie Holt AUDIENCE DEVELOPMENT MANAGER Weakness ICD-780.79 Inactive Hope Benavidez [...] Sebaceous cyst, scalp ICD-706.2 Inactive Tracy Escalonagabbium AUDIENCE DEVELOPMENT MANAGER Cervical lymphadenopathy, anterior, left ICD-785.6 Inactive Kylie Holt AUDIENCE DEVELOPMENT MANAGER Need for prophylactic vaccination and inoculation against in fluenza ICD-V04.81 Inactive Adam Yates MD Mandy ICD-706.2 Inactive Kylie Lundum AUDIENCE DEVELOPMENT MANAGER 07/20 Colon cancer, ascending ICD-153.6 Inactive K umang Holt AUDIENCE DEVELOPMENT MANAGER Colon cancer ICD-153.9 Inactive Adam luna MD Medication List Medication Instructions Start Date Stop Date Generic Name NDC Status Provider Patient Instruction COQ10 100 MG ORAL CAPS 1 daily COENZYME Q10 090399147 20 Active LEYT Nation Active VITAMIN D3 2000 UNIT ORAL CAPS Melaleuca-One daily CHOLECALCIFEROL 53313134789 Active Kylie Lundum AUDIENCE DEVELOPMENT MANAGER Active PROBIOTIC DAILY ORAL CAPS Take one daily PROBIOTIC PRODUCT 01634790202 Active Kylie Lundum AUDIENCE DEVELOPMENT MANAGER Active IRON 325 (65 FE) MG TABS 1 every other day FERR OUS SULFATE 79888809060 No Longer Active Kylie Lundum AUDIENCE DEVELOPMENT MANAGER Active FLORANEX PACK 1 pack three times daily, for bowel health LACTOBACILLUS 34473444202 No Longer Active Kylie Holt APRN Active LOMOTIL 2.5-0.025 MG TABS 1 tab by mouth prn 4 DIPHENOXYLATE-ATROPINE 70429123303 No Longer Active Kylie Lundum AUDIENCE DEVELOPMENT MANAGER Active MAGNESIUM GLUCONATE 250 MG TABS 1 tab tid 4 MAGNESIUM GLUCONATE 16023238565 No Longer Active Kylie Polakum AUDIENCE DEVELOPMENT MANAGER Active CYANOCOBALAMIN 1000 MCG/ML INJ SOLN 1 injection every 2 weeks 20 20/01/03 CYANOCOBALAMIN 51723835672 No Longer Active Kylie Lundum AUDIENCE DEVELOPMENT MANAGER Active ATENOLOL 25 MG ORAL TABS 1/2 pill by mouth daily, for headac hes, blood pressure ATENOLOL 81602337211 Active Kylieshubham Holt APRN Active PROPRANOLOL HCL 80 MG TABS 1 tab tue. and thur. 04/10 PROPRANOLOL HCL 39329129819 No Longer Active Hope Benavidez MD PhD A ctive VITAMIN D3 4000 IU 1 tab 3 times daily VITAMIN D3 4000 IU No Longer Active Hope Benavidez MD PhD Active BACTRIM DS 800-160 MG TABS 1 pill by mouth twice daily, for UTI SULFAMETHOXAZOLE-TRIMETHOPRIM 36436459895 No Longer Active A attila Benavidez MD PhD Active PROLIA 60 MG/ML SOLN 1 shot every 6 months for osteoprosis DENOSUMAB 58866504952 Active Hope Benavidez MD PhD Active CALCIUM + D + K 750-500-40 MG-UNT-MCG TABS 1 tab by mouth tw ice daily CALCIUM-VITAMIN D-VITAMIN K 38992825004 Active Hope landers MD PhD Active DAILY VALUE MULTIVITAMIN TABS 1 tab by mouth twice daily MULTIPLE VITAMIN 52774012323 Active Hope Benavidez MD PhD Active FISH OIL 306 MG CAPS 1 tab by mouth three times daily OMEGA-3 FATTY ACIDS 73281683321 Active Hope Benavidez MD PhD Active LUTEIN 10 MG TABS 1 tab daily LUTEIN 86534448499 Act cash Hope Benavidez MD PhD Active TRIAMTERENE-HCTZ 37.5-25 MG TABS 1 tab by mouth daily TRIAMTERENE-HCTZ 40735368052 Active Kylie Holt APRN Active CYCLOBENZAPRINE HCL 10 MG TABS 1 tablet by mouth three times daily as needed for headaches CYCLOBENZAPRINE HCL 23330075708 No Longe r Active Adam Yates MD Active OMEPRAZOLE 20 MG CPDR 1 tablet by mouth daily for GERD OMEPRAZOLE 88129440069 No Longer Active Adam Yates MD A ctive ZOFRAN 8 MG TABS 1 tab by mouth every 12 hours prn 201 05/16/09 ONDANSETRON HCL 23242375065 No Longer Active Adam Yates MD Active PHENADOZ 25 MG SUPP 1 every 4 hrs. PRN PROMETHA ZINE HCL 00781543471 No Longer Active Adam Yates MD Active POTASSIUM CHLORIDE 20 MEQ PACK by mouth twice a day prn POTASSIUM CHLORIDE 76412552994 No Longer Active Adam Yates MD Active PROMETHAZINE HCL 25 MG TABS 1 Q. 4 hr. PRN PROM ETHAZINE HCL 62946612798 No Longer Active Adam Yates MD Active INNOPRAN XL 120 MG [id number] Take one by mouth daily 2 PROPRANOLOL HCL SR BEADS 17645983663 No Longer Active Adam Yates MD A ctive FLAGYL 500 MG TABS 1 pill by mouth three times daily, for diarrh ea METRONIDAZOLE 96388225744 No Longer Active Hope Benavidez MD PhD Active DYAZIDE 37.5-25 MG CAPS 1 qd TRIAMTERENE-HC TZ 05982702305 No Longer Active Hope Benavidez MD PhD Active PROZAC 20 MG CAPS 1 q d FLUOXETINE HCL 65074 171654 No Longer Active Hope Benvaidez MD PhD Active SIMVASTATIN 40 MG TABS 1 qd SIMVASTATIN 004 61475882 No Longer Active Adam Yates MD Active MELOXICAM 15 MG TABS 1 qd MELOXICAM 4223128 9065 No Longer Active Adam Yates MD Active IMODIUM A-D 2 MG TABS 2 onset at diarrhea and prn. LOPERAMIDE HCL 12772964638 Active Hope Benavidez MD PhD Active EXCEDRIN EXTRA STRENGTH 250-250-65 MG TABS 1-2 q6h PRN headache 201 04/16/21 [id number] 97979166827 Active Hope Benavidez MD PhD Active FLAGYL 500 MG TABS 1 qid METRONIDAZOLE 36168 780034 No Longer Active Adam Yates MD Active LEVAQUIN 750 MG TABS 1 qd LEVOFLOXACIN 5486 0800950 No Longer Active Adam Yates MD Active ADULT ASPIRIN LOW STRENGTH 81 MG TBDP 1 qd A SPIRIN 54868500374 Active Hope Benavidez MD PhD Active LEVAQUIN 750 MG TABS 1 qd LEVAQUIN 750 MG T ABS 225910 LEVOFLOXACIN Inactive FLAGYL 500 MG TABS 1 qid FLAGYL 500 MG TABS 602867 METRONIDAZOLE Inactive MELOXICAM 15 MG TABS 1 qd MELOXICAM 15 MG T ABS 498115 MELOXICAM Inactive SIMVASTATIN 40 MG TABS 1 qd SIMVASTATIN 40 MG TABS 007341 SIMVASTATIN Inactive PROZAC 20 MG CAPS 1 q d PROZAC 20 MG CAPS 31 0385 FLUOXETINE HCL Inactive DYAZIDE 37.5-25 MG CAPS 1 qd DYAZIDE 37.5 -25 MG CAPS 145910 TRIAMTERENE-HCTZ Inactive INNOPRAN XL 120 MG [id number] Take one by mouth daily 2 INNOPRAN XL 120 MG [id number] PROPRANOLOL HCL SR BEADS Inactive PROMETHAZINE HCL 25 MG TABS 1 Q. 4 hr. PRN PROMETHAZINE HCL 25 MG TABS 523645 PROMETHAZINE HCL Inactive POTASSIUM CHLORIDE 20 MEQ PACK by mouth twice a day prn POTASSIUM CHLORIDE 20 MEQ PACK 4655016 POTASSIUM CHLORIDE Inactive PHENADOZ 25 MG SUPP 1 every 4 hrs. PRN PHENADOZ 2 5 MG SUPP 006316 PROMETHAZINE HCL Inactive ZOFRAN 8 MG TABS 1 tab by mouth every 12 hours prn 201 05/16/09 ZOFRAN 8 MG TABS 628409 ONDANSETRON HCL Inactive OMEPRAZOLE 20 MG CPDR 1 tablet by mouth daily for GERD OMEPRAZOLE 20 MG CPDR 170738 OMEPRAZOLE Inactive CYCLOBENZAPRINE HCL 10 MG TABS 1 tablet by mouth three times daily as needed for headaches CYCLOBENZAPRINE HCL 10 MG TABS 025987 CYCLOBENZAPRINE HCL Inactive VITAMIN D3 4000 IU 1 tab 3 times daily VITAMIN D3 4000 IU Inactive PROPRANOLOL HCL 80 MG TABS 1 tab tue. and thur. 04/10 PROPRANOLOL HCL 80 MG TABS 845306 PROPRANOLOL HCL Inactive CYANOCOBALAMIN 1000 MCG/ML INJ SOLN 1 injection every 2 weeks 20 20/01/03 CYANOCOBALAMIN 1000 MCG/ML INJ SOLN 777517 CYANOCOBALAM IN Inactive MAGNESIUM GLUCONATE 250 MG TABS 1 tab tid 4 MAGNESIUM GLUCONATE 250 MG TABS 887310 MAGNESIUM GLUCONATE Inactive LOMOTIL 2.5-0.025 MG TABS 1 tab by mouth prn 4 LOMOTIL 2.5- 0.025 MG TABS 5845003 DIPHENOXYLATE-ATROPINE Inactive FLORANEX PACK 1 pack three times daily, for bowel health FLORANEX PACK LACTOBACILLUS Inactive IRON 325 (65 FE) MG TABS 1 every other day IRON 325 (65 FE) MG TABS 950675 FERROUS SULFATE Inactive FLAGYL 500 MG TABS 1 pill by mouth three times daily, for diarrh ea FLAGYL 500 MG TABS 609065 METRONIDAZOLE Inactive BACTRIM DS 800-160 MG TABS 1 pill by mouth twice daily, for UTI BACTRIM DS 800-160 MG TABS 284420 SULFAMETHOXAZOLE-TRIM ETHOPRIM Inactive Advance Directives Directive Description [...] 11 .0-15.0 platelet count 157 THOUSAND/UL 10*3/mm3 216-782 3503/04/20 mean platelet volume 8.9 fL 7.5-12.5 Lab Report: CBC W/DIFF, Comp. Metabolic Panel, Thyroid Stimulating Hormo ... - Chemistry sodium, serum 139 mmol/L 933-164 8210/10/20 carbon dioxide, venous blood 32.2 mmol/L 21.0-32 [...] 11 .6-14.8 platelet count 180 10^3/MM^3 10*3/mm3 403-337 5401/10/20 erythrocyte (RBC) count 4.69 10^6/MM^3 10*6/mm3 4.04-5.4 [...] - Chemi stry cholesterol, serum 200 mg/dL 609-223 2582/11/22 triglyceride, serum, fasting 129 mg/dL 30-200 HDL cholesterol, serum 56 mg/dL 32-96 LDL cholesterol, serum 118 mg/dL 0-130 calcium, serum 9.0 mg/dL 8.5-10.1 Lab Report: MicroAlb Random w/creat/6517 - Urinalysis microalbumin/total urine volume 8 mg/L Units converted. See lab report for original value. microalbumin/creatinine ratio, urine 15 MCG/MG CREAT mg/L <30 Encounters Code Encounter Date Provider Facility CPT-10557 Level 3 Est. Patient 17:54:48 CDT Kylie boyd [facility] CPT-70303 Level 3 Est. Patient 16:26:30 CDT Kina blackmon [facility] CPT-50558 Level 3 New Patient 16:22:01 WEBBING WEAVER Adam Yates MD [facility] CPT-30489 Level 4 Est. Patient 17:00:48 CDT Kylie Lund [facility] CPT-74261 Level 3 Est. Patient 13:15:54 CDT Kylie Lund [facility] [place][note 2] CPT-77787 Level 3 Est. Patient 09:10:11 CDT Kylie Lund [facility] [place][note 2] CPT-51221 Level 4 Est. Patient 12:08:30 WEBBING WEAVER Hope cohn MD [facility] CPT-20863 Level 4 Est. Patient 19:08:42 WEBBING WEAVER Hope cohn MD [facility] CPT-33934 Level 4 Est. Patient 20:04:51 CDT Hope cohn MD [facility] CPT-11077 Level 3 New Patient 01:46:11 WEBBING WEAVER Hope landers MD [facility] Procedures Code Procedure Name Date Entry Date Standard Desc ription CPT-41177 Bone Density - XRAY USE ONLY 10:27:12 CDT 2 CPT-G0439 [facility] Annual Wellness Exam 17:54:53 CDT CPT-42176 Foot, left, comp min 3V - XRAY USE ONLY 12:22:49 CDT CPT-G0009 Administration of Pneumococcal Vaccine 3 12:18:00 CDT CPT-43734 Pneumovax 23 Injection Injectable 25 MCG /0.5ML 12:18:00 CDT CPT-J0897 Prolia 60 mg 14:14:16 WEBBING WEAVER CPT-98259 Abx/Therapy Injection 14:14:15 WEBBING WEAVER CPT-58024 Lipid - LAB USE ONLY 10:01:52 WEBBING WEAVER 2 CPT-16858 Calcium - LAB USE ONLY 10:01:51 WEBBING WEAVER CPT-06796 Venipuncture Draw Fee 10:01:51 WEBBING WEAVER CPT-LR Lesion Removal 16:22:01 WEBBING WEAVER CPT-46778 TSH - LAB USE ONLY 14:26:02 CDT CPT-61596 CMP - LAB USE ONLY 14:26:01 CDT CPT-70364 CBC with Diff - LAB USE ONLY 14:26:01 CDT 2 CPT-79385 Venipuncture Draw Fee 14:26:01 CDT CPT-55652 First Vx - Ix admin for Medicare patients 13:27:08 CDT CPT-48274 Fluzone High-Dose Intramuscular Suspension 11/26 13:27:08 CDT CPT-G0438 Initial Annual Wellness Exam 14:19:57 CD T CPT-G0009 Administration of Pneumococcal Vaccine 9 11:36:25 CDT CPT-35136 Prevnar 13 Intramuscular Suspension 1 1:36:25 CDT CPT-55985 Prevnar 13 Intramuscular Suspension 1 0:40:58 CDT CPT-J0897 Prolia 60 mg 10:37:16 CDT CPT-86791 Abx/Therapy Injection 10:37:16 CDT CPT-J0897 Prolia 60 mg 16:09:34 WEBBING WEAVER CPT-J0897 Prolia 60 mg 11:10:35 WEBBING WEAVER CPT-91857 Abx/Therapy Injection 11:10:35 WEBBING WEAVER CPT-000 Give Appropriate Flu Vaccine 17:01:15 WEBBING WEAVER 2 CPT-71714 Fluzone High Dose (65+) 15:03:08 WEBBING WEAVER 02/15 CPT-20471 Immunization Single Admin 15:03:08 WEBBING WEAVER 2014 CPT-OV Office Visit 15:58:06 CDT CPT-J0897 Prolia 60 mg 08:45:38 CDT CPT-30789 Abx/Therapy Injection 08:45:38 CDT CPT-J3420 Vitamin B12 1000mcg (Cyanocobalamin) 09:26:20 WEBBING WEAVER CPT-14550 Abx/Therapy Injection 09:26:20 WEBBING WEAVER CPT-J3420 Vitamin B12 1000mcg (Cyanocobalamin) 09:44:40 WEBBING WEAVER CPT-09769 Abx/Therapy Injection 09:44:40 WEBBING WEAVER CPT-J3420 Vitamin B12 1000mcg (Cyanocobalamin) 09:15:54 WEBBING WEAVER CPT-23768 Abx/Therapy Injection 09:15:54 WEBBING WEAVER CPT-J3420 Vitamin B12 1000mcg (Cyanocobalamin) 09:46:44 WEBBING WEAVER CPT-97897 Abx/Therapy Injection 09:46:44 WEBBING WEAVER CPT-J3420 Vitamin B12 1000mcg (Cyanocobalamin) 09:47:34 WEBBING WEAVER CPT-88734 Abx/Therapy Injection 09:47:34 WEBBING WEAVER CPT-J3420 Vitamin B12 1000mcg (Cyanocobalamin) 14:35:50 WEBBING WEAVER CPT-J3420 Vitamin B12 1000mcg (Cyanocobalamin) 09:25:05 WEBBING WEAVER CPT-25501 Abx/Therapy Injection 09:25:05 WEBBING WEAVER CPT-G0008 Administration of Influenza Virus Vaccine 13:36:47 CDT CPT-67747 Fluzone High-Dose Intramuscular Suspension 11/15 13:36:47 CDT CPT-J0897 Prolia 60 mg 08:50:41 CDT CPT-82491 Abx/Therapy Injection 08:50:41 CDT CPT-84987 Bone Density 12:06:12 CDT CPT-83507 Bone Density 08:54:40 CDT CPT-OV Office Visit 15:37:02 CDT CPT-83529 Postop F/U Visit 15:47:49 CDT CPT-86833 Postop F/U Visit 15:21:02 CDT [facility] Transitional Care Mgmt-High 07:52:27 CDT 20 20/06/01 CPT-89552 Venipuncture Draw Fee 13:51:18 CDT CPT-10697 Venipuncture Draw Fee 10:14:55 WEBBING WEAVER CPT-72348 Venipuncture Draw Fee 13:39:45 WEBBING WEAVER CPT-OV Office Visit 15:11:22 WEBBING WEAVER CPT-16185 Venipuncture Draw Fee 09:20:49 WEBBING WEAVER CPT-14427 Venipuncture Draw Fee 16:52:15 WEBBING WEAVER CPT-52354 Venipuncture Draw Fee 10:37:24 WEBBING WEAVER CPT-36801 Venipuncture Draw Fee 08:21:21 WEBBING WEAVER CPT-96063 Venipuncture Draw Fee 08:30:20 WEBBING WEAVER CPT-34204 Venipuncture Draw Fee 14:53:21 WEBBING WEAVER CPT-68820 Venipuncture Draw Fee 09:40:56 WEBBING WEAVER CPT-20748 Venipuncture Draw Fee 10:30:47 WEBBING WEAVER CPT-38670 Venipuncture Draw Fee 10:46:17 WEBBING WEAVER CPT-24123 Venipuncture Draw Fee 11:12:45 WEBBING WEAVER CPT-46491 Venipuncture Draw Fee 09:53:33 WEBBING WEAVER CPT-45291 Venipuncture Draw Fee 11:53:51 WEBBING WEAVER CPT-61828 Venipuncture Draw Fee 10:33:50 WEBBING WEAVER CPT-86880 Venipuncture Draw Fee 10:05:01 WEBBING WEAVER CPT-46366 Venipuncture Draw Fee 14:32:52 WEBBING WEAVER CPT-87456 Venipuncture Draw Fee 09:46:13 WEBBING WEAVER CPT-78630 Venipuncture Draw Fee 11:34:27 WEBBING WEAVER CPT-86337 Venipuncture Draw Fee 13:17:16 WEBBING WEAVER CPT-48931 Venipuncture Draw Fee 12:05:39 CDT CPT-70856 Venipuncture Draw Fee 12:49:12 CDT 2013/10/ 29 CPT-61584 Venipuncture Draw Fee 12:37:18 CDT CPT-37172 Venipuncture Draw Fee 10:57:11 CDT CPT-16342 Venipuncture Draw Fee 13:47:40 CDT CPT-89999 Venipuncture Draw Fee 10:02:17 CDT CPT-06576 TB Tubersol 17:32:32 CDT CPT-OV Office Visit 16:21:53 CDT CPT-OV Office Visit 15:49:22 CDT CPT-OV Office Visit 17:16:31 CDT CPT-OV Office Visit 10:43:31 CDT
--- OUTSIDE RECORDS SUMMARY | 2019-02-09 12:59 | XMS REPORT | Clinical Summary ---
Author Author Renaldo, Florecita Munoz Organization [facility] [email or web address] Address Unknown Phone Unavailable Allergies, Adverse Reactions, [...] PhD Hyperpotassemia GERD 530.81 Resolved Kylie Yokum [employer] Esophageal reflux Health maintenance exam V70.0 Resolved Adolfo Yates MD Routine general medical examination at a health care facility Anemia 285.9 Resolved Kylie Holt [employer] Anemia, unspecified Personal history of malignant [...] Sebaceous cyst, scalp 706.2 Resolved Kylie Holt [employer] Sebaceous cyst Cervical lymphadenopathy, anterior, left 785.6 Resolv ed Kylie Holt [employer] Enlargement of lymph nodes Need for prophylactic vaccination and inoculation against in fluenza V04.81 Resolved Adam Yates MD Need for prophylactic vaccination and inoculation against influenza Preventive health care V70.0 Active Kylie Holt [employer] Routine general medical examination at a health care facility Thyroid nodule, left 241.0 Active Kylie Gonzalez PRN Nontoxic uninodular goiter Screening mammogram V76.12 Active Kylie Holt AP RN Other screening mammogram Mandy 706.2 Active Adam Yates MD Sebaceous cyst Colon cancer, ascending 153.6 Active Kelsy F aux RMA Malignant neoplasm of ascending colon ADENOCARCINOMA, COLON, 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 Dick Yates MD ABDOMINAL PAIN, GENERALIZED ICD-789.07 Inactive Hope Benavidez MD PhD FEVER UNSPECIFIED ICD-780.60 Inactive Hope cohn MD PhD UNSPECIFIED VENOUS INSUFFICIENCY ICD-459.81 Elda ctive Adam Yates MD ADENOCARCINOMA, ASCENDING COLON ICD-153.6 Inac tive Hope Benavidez MD PhD Hyperkalemia ICD-276.7 Inactive Hope Benavidez MD PhD GERD ICD-530.81 Inactive Kylie Holt [employer] 2015 Health maintenance exam ICD-V70.0 Bam Yates MD Anemia ICD-285.9 Inactive Kylie Holt [employer] 07/24 Weakness ICD-780.79 Inactive Hope Benavidez MD P hD ABDOMINAL PAIN, RIGHT LOWER QUADRANT ICD-789.03 Inactive Kina Tres [employer] Asymptomatic postmenopausal status (age-related) (natural) I CD-V49.81 Inactive Hope Benavidez MD PhD Aftercare following surgery of the teeth,oral cavity a nd digestive system, NEC ICD-V58.75 Inactive Adam Yates MD Diarrhea, functional ICD-564.5 Inactive Selena Yates MD Dysuria ICD-788.1 Inactive Hope Benavidez MD PhD 201 05/19/01 Adenocarcinoma, ascending colon ICD-153.6 Inac tive Adam Yates MD Sebaceous cyst, scalp ICD-706.2 Inactive Tracy Holt [employer] Cervical lymphadenopathy, anterior, left ICD-785.6 Inactive Kylie Holt [employer] Need for prophylactic vaccination and inoculation against in fluenza ICD-V04.81 Inactive Adam Yates MD Colon cancer ICD-153.9 Inactive Adam luna MD Medication List Medication Instructions Start Date Stop Date Generic Name NDC Status Provider Patient Instruction COQ10 100 MG ORAL CAPS 1 daily COENZYME Q10 [id number] 20 Active [place] Active VITAMIN D3 2000 UNIT ORAL CAPS Melaleuca-One daily CHOLECALCIFEROL 41998391994 Active Kylie Holt [employer] Active PROBIOTIC DAILY ORAL CAPS Take one daily PROBIOTIC PRODUCT 89972902036 Active Kylie Lundum [employer] Active IRON 325 (65 FE) MG TABS 1 every other day FERR OUS SULFATE 24716259076 No Longer Active Kylie Lundum [employer] Active FLORANEX PACK 1 pack three times daily, for bowel health LACTOBACILLUS 13334326683 No Longer Active Kylie Holt [employer] Active LOMOTIL 2.5-0.025 MG TABS 1 tab by mouth prn 4 DIPHENOXYLATE-ATROPINE 62865043999 No Longer Active Kylie Lundum [employer] Active MAGNESIUM GLUCONATE 250 MG TABS 1 tab tid 4 MAGNESIUM GLUCONATE 91781436391 No Longer Active Kylie Lundum [employer] Active CYANOCOBALAMIN 1000 MCG/ML INJ SOLN 1 injection every 2 weeks 20 20/01/03 CYANOCOBALAMIN 45721189388 No Longer Active Kylie Lundum [employer] Active ATENOLOL 25 MG ORAL TABS 1/2 pill by mouth daily, for headac hes, blood pressure ATENOLOL 87416900815 Active Kylie Lundum [employer] Active PROPRANOLOL HCL 80 MG TABS 1 tab tue. and thur. 04/10 PROPRANOLOL HCL 64249561759 No Longer Active Hope Benavidez MD PhD A ctive VITAMIN D3 4000 IU 1 tab 3 times daily VITAMIN D3 4000 IU No Longer Active Hope Benavidez MD PhD Active BACTRIM DS 800-160 MG TABS 1 pill by mouth twice daily, for UTI SULFAMETHOXAZOLE-TRIMETHOPRIM 11873575804 No Longer Active A attila Benavidez MD PhD Active PROLIA 60 MG/ML SOLN 1 shot every 6 months for osteoprosis DENOSUMAB 70062010972 Active Hope Benavidez MD PhD Active CALCIUM + D + K 750-500-40 MG-UNT-MCG TABS 1 tab by mouth tw ice daily CALCIUM-VITAMIN D-VITAMIN K 99600091953 Active Hope landers MD PhD Active DAILY VALUE MULTIVITAMIN TABS 1 tab by mouth twice daily MULTIPLE VITAMIN 41777461616 Active Hope Benavidez MD PhD Active FISH OIL 306 MG CAPS 1 tab by mouth three times daily OMEGA-3 FATTY ACIDS 26116754324 Active Hope Benavidez MD PhD Active LUTEIN 10 MG TABS 1 tab daily LUTEIN 39459160435 Act cash Hope Benavidez MD PhD Active TRIAMTERENE-HCTZ 37.5-25 MG TABS 1 tab by mouth daily TRIAMTERENE-HCTZ 18126419282 Active Kylie Holt [employer] Active CYCLOBENZAPRINE HCL 10 MG TABS 1 tablet by mouth three times daily as needed for headaches CYCLOBENZAPRINE HCL 04960695671 No Longe r Active Adam Yates MD Active OMEPRAZOLE 20 MG CPDR 1 tablet by mouth daily for GERD OMEPRAZOLE 18889553760 No Longer Active Adam Yates MD A ctive ZOFRAN 8 MG TABS 1 tab by mouth every 12 hours prn 201 05/16/09 ONDANSETRON HCL 44238048700 No Longer Active Adam Yates MD Active PHENADOZ 25 MG SUPP 1 every 4 hrs. PRN PROMETHA ZINE HCL 82771508288 No Longer Active Adam Yates MD Active POTASSIUM CHLORIDE 20 MEQ PACK by mouth twice a day prn POTASSIUM CHLORIDE 47508804041 No Longer Active Adam Yates MD Active PROMETHAZINE HCL 25 MG TABS 1 Q. 4 hr. PRN PROM ETHAZINE HCL 15212604020 No Longer Active Adam Yates MD Active INNOPRAN XL 120 MG [id number] Take one by mouth daily 2 PROPRANOLOL HCL SR BEADS 56478426718 No Longer Active Adam Yates MD A ctive FLAGYL 500 MG TABS 1 pill by mouth three times daily, for diarrh ea METRONIDAZOLE 14672072020 No Longer Active Hope Benavidez MD PhD Active DYAZIDE 37.5-25 MG CAPS 1 qd TRIAMTERENE-HC TZ 59317541937 No Longer Active Hope Benavidez MD PhD Active PROZAC 20 MG CAPS 1 q d FLUOXETINE HCL 20745 900792 No Longer Active Hope Benavidez MD PhD Active SIMVASTATIN 40 MG TABS 1 qd SIMVASTATIN 004 17759815 No Longer Active Adam Yates MD Active MELOXICAM 15 MG TABS 1 qd MELOXICAM 9028300 9578 No Longer Active Adam Yates MD Active IMODIUM A-D 2 MG TABS 2 onset at diarrhea and prn. LOPERAMIDE HCL 40433676267 Active Hope Benavidez MD PhD Active EXCEDRIN EXTRA STRENGTH 250-250-65 MG TABS 1-2 q6h PRN headache 201 04/16/21 [id number] 59063923715 Active Hope Benavidez MD PhD Active FLAGYL 500 MG TABS 1 qid METRONIDAZOLE 48898 488309 No Longer Active Adam Yates MD Active LEVAQUIN 750 MG TABS 1 qd LEVOFLOXACIN 5486 0761299 No Longer Active Adam Yates MD Active ADULT ASPIRIN LOW STRENGTH 81 MG TBDP 1 qd A SPIRIN 87260739234 Active Hope Benavidez MD PhD Active LEVAQUIN 750 MG TABS 1 qd LEVAQUIN 750 MG T ABS 073385 LEVOFLOXACIN Inactive FLAGYL 500 MG TABS 1 qid FLAGYL 500 MG TABS 433670 METRONIDAZOLE Inactive MELOXICAM 15 MG TABS 1 qd MELOXICAM 15 MG T ABS 172338 MELOXICAM Inactive SIMVASTATIN 40 MG TABS 1 qd SIMVASTATIN 40 MG TABS 310532 SIMVASTATIN Inactive PROZAC 20 MG CAPS 1 q d PROZAC 20 MG CAPS 31 0385 FLUOXETINE HCL Inactive DYAZIDE 37.5-25 MG CAPS 1 qd DYAZIDE 37.5 -25 MG CAPS 359702 TRIAMTERENE-HCTZ Inactive INNOPRAN XL 120 MG [id number] Take one by mouth daily 2 INNOPRAN XL 120 MG [id number] PROPRANOLOL HCL SR BEADS Inactive PROMETHAZINE HCL 25 MG TABS 1 Q. 4 hr. PRN PROMETHAZINE HCL 25 MG TABS 650243 PROMETHAZINE HCL Inactive POTASSIUM CHLORIDE 20 MEQ PACK by mouth twice a day prn POTASSIUM CHLORIDE 20 MEQ PACK 2134281 POTASSIUM CHLORIDE Inactive PHENADOZ 25 MG SUPP 1 every 4 hrs. PRN PHENADOZ 2 5 MG SUPP 811210 PROMETHAZINE HCL Inactive ZOFRAN 8 MG TABS 1 tab by mouth every 12 hours prn 201 05/16/09 ZOFRAN 8 MG TABS 314224 ONDANSETRON HCL Inactive OMEPRAZOLE 20 MG CPDR 1 tablet by mouth daily for GERD OMEPRAZOLE 20 MG CPDR 536782 OMEPRAZOLE Inactive CYCLOBENZAPRINE HCL 10 MG TABS 1 tablet by mouth three times daily as needed for headaches CYCLOBENZAPRINE HCL 10 MG TABS 705237 CYCLOBENZAPRINE HCL Inactive VITAMIN D3 4000 IU 1 tab 3 times daily VITAMIN D3 4000 IU Inactive PROPRANOLOL HCL 80 MG TABS 1 tab tue. and thur. 04/10 PROPRANOLOL HCL 80 MG TABS 633544 PROPRANOLOL HCL Inactive CYANOCOBALAMIN 1000 MCG/ML INJ SOLN 1 injection every 2 weeks 20 20/01/03 CYANOCOBALAMIN 1000 MCG/ML INJ SOLN 244558 CYANOCOBALAM IN Inactive MAGNESIUM GLUCONATE 250 MG TABS 1 tab tid 4 MAGNESIUM GLUCONATE 250 MG TABS 150555 MAGNESIUM GLUCONATE Inactive LOMOTIL 2.5-0.025 MG TABS 1 tab by mouth prn 4 LOMOTIL 2.5- 0.025 MG TABS 1682974 DIPHENOXYLATE-ATROPINE Inactive FLORANEX PACK 1 pack three times daily, for bowel health FLORANEX PACK LACTOBACILLUS Inactive IRON 325 (65 FE) MG TABS 1 every other day IRON 325 (65 FE) MG TABS 344676 FERROUS SULFATE Inactive FLAGYL 500 MG TABS 1 pill by mouth three times daily, for diarrh ea FLAGYL 500 MG TABS 209687 METRONIDAZOLE Inactive BACTRIM DS 800-160 MG TABS 1 pill by mouth twice daily, for UTI BACTRIM DS 800-160 MG TABS 339714 SULFAMETHOXAZOLE-TRIM ETHOPRIM Inactive Advance Directives Directive Description [...] 11 .0-15.0 platelet count 157 THOUSAND/UL 10*3/mm3 767-885 3038/04/20 mean platelet volume 8.9 fL 7.5-12.5 Lab Report: CBC W/DIFF, Comp. Metabolic Panel, Thyroid Stimulating Hormo ... - Chemistry sodium, serum 139 mmol/L 464-985 8422/10/20 carbon dioxide, venous blood 32.2 mmol/L 21.0-32 [...] leukocyte count, blood 6.0 10^3/MM^3 10*3/mm3 4.6-10.2 hemoglobin, blood 15.1 g/dL 12.0-16.0 hematocrit, blood [...] - Chemi stry cholesterol, serum 200 mg/dL 452-153 5169/11/22 triglyceride, serum, fasting 129 mg/dL 30-200 HDL cholesterol, serum 56 mg/dL 32-96 LDL cholesterol, serum 118 mg/dL 0-130 calcium, serum 9.0 mg/dL 8.5-10.1 Lab Report: MicroAlb Random w/creat/6517 - Urinalysis microalbumin/total urine volume 8 mg/L Units converted. See lab report for original value. microalbumin/creatinine ratio, urine 15 MCG/MG CREAT mg/L <30 Encounters Code Encounter Date Provider Facility CPT-52887 Level 3 Est. Patient 16:26:30 CDT Kina blackmon APRN [facility] CPT-70294 Level 3 New Patient 16:22:01 [employer] MANAGER [facility] CPT-17585 Level 4 Est. Patient 17:00:48 CDT Kylie Lund [facility] CPT-15053 Level 3 Est. Patient 13:15:54 CDT Kylie Lund [facility] CPT-11879 Level 3 Est. Patient 09:10:11 CDT Kylie Lund [facility] CPT-43719 Level 4 Est. Patient 12:08:30 [employer]RO[employer] EM[employer]Y SERVICES MANAGER Hope cohn MD [facility] CPT-79713 Level 4 Est. Patient 19:08:42 [employer]RO[employer] EM[employer] SERVICES MANAGER Hope cohn MD [facility] CPT-19689 Level 4 Est. Patient 20:04:51 CDT Hope cohn MD [facility] CPT-98495 Level 3 New Patient 01:46:11 [employer]RO[employer] SERVICES MANAGER Hope landers MD PhD [facility] Procedures Code Procedure Name Date Entry Date Standard Desc ription CPT-J0897 Prolia 60 mg 14:14:16 [employer] SERVICES MANAGER CPT-52587 Abx/Therapy Injection 14:14:15 [employer] SERVICES MANAGER CPT-54643 Lipid - LAB USE ONLY 10:01:52 [employer]RO[employer] SERVICES MANAGER 2 CPT-78878 Calcium - LAB USE ONLY 10:01:51 [employer]RO[employer] EM[employer] SERVICES MANAGER CPT-88579 Venipuncture Draw Fee 10:01:51 [employer]RO[employer] EM[employer] SERVICES MANAGER CPT-LR Lesion Removal 16:22:01 [employer]RO[employer] EMERG[employer] SERVICES MANAGER CPT-31443 TSH - LAB USE ONLY 14:26:02 CDT CPT-05659 CMP - LAB USE ONLY 14:26:01 CDT CPT-25483 CBC with Diff - LAB USE ONLY 14:26:01 CDT 2 CPT-04748 Venipuncture Draw Fee 14:26:01 CDT CPT-37062 First Vx - Ix admin for Medicare patients 13:27:08 CDT CPT-93504 Fluzone High-Dose Intramuscular Suspension 11/26 13:27:08 CDT CPT-G0438 Initial Annual Wellness Exam 14:19:57 CD T CPT-G0009 Administration of Pneumococcal Vaccine 9 11:36:25 CDT CPT-25028 Prevnar 13 Intramuscular Suspension 1 1:36:25 CDT CPT-23614 Prevnar 13 Intramuscular Suspension 1 0:40:58 CDT CPT-J0897 Prolia 60 mg 10:37:16 CDT CPT-39154 Abx/Therapy Injection 10:37:16 CDT CPT-J0897 Prolia 60 mg 16:09:34 [employer]RO[employer] SERVICES MANAGER CPT-J0897 Prolia 60 mg 11:10:35 [employer]RO[employer] EM[employer] SERVICES MANAGER CPT-08171 Abx/Therapy Injection 11:10:35 [employer]RO[employer] EM[employer] SERVICES MANAGER CPT-000 Give Appropriate Flu Vaccine 17:01:15 [employer]RO[employer] EM[employer] SERVICES MANAGER 2 CPT-97559 Fluzone High Dose (65+) 15:03:08 [employer]ROAD EM[employer] SERVICES MANAGER 02/15 CPT-38969 Immunization Single Admin 15:03:08 [employer]ROAD EMERG[employer]Y SERVICES MANAGER 2014 CPT-OV Office Visit 15:58:06 CDT CPT-J0897 Prolia 60 mg 08:45:38 CDT CPT-64577 Abx/Therapy Injection 08:45:38 CDT CPT-J3420 Vitamin B12 1000mcg (Cyanocobalamin) 09:26:20 [employer]RO[employer] EM[employer] SERVICES MANAGER CPT-82310 Abx/Therapy Injection 09:26:20 [employer]ROAD EM[employer]Y SERVICES MANAGER CPT-J3420 Vitamin B12 1000mcg (Cyanocobalamin) 09:44:40 [employer]RO[employer] EMERG[employer]Y SERVICES MANAGER CPT-85455 Abx/Therapy Injection 09:44:40 [employer]ROAD EMERG[employer]Y SERVICES MANAGER CPT-J3420 Vitamin B12 1000mcg (Cyanocobalamin) 09:15:54 [employer]RO[employer] EMERG[employer]Y SERVICES MANAGER CPT-31598 Abx/Therapy Injection 09:15:54 [employer]RO[employer] EMERG[employer]Y SERVICES MANAGER CPT-J3420 Vitamin B12 1000mcg (Cyanocobalamin) 09:46:44 [employer]ILROAD EMERG[employer]Y SERVICES MANAGER CPT-88174 Abx/Therapy Injection 09:46:44 [employer]ILROAD EMERGENCY SERVICES MANAGER CPT-J3420 Vitamin B12 1000mcg (Cyanocobalamin) 09:47:34 [employer]ILROAD EMERG[employer]Y SERVICES MANAGER CPT-06472 Abx/Therapy Injection 09:47:34 [employer]ROAD EMERG[employer]Y SERVICES MANAGER CPT-J3420 Vitamin B12 1000mcg (Cyanocobalamin) 14:35:50 [employer]ILROAD EMERGENCY SERVICES MANAGER CPT-J3420 Vitamin B12 1000mcg (Cyanocobalamin) 09:25:05 [employer]ILROAD EMERG[employer]Y SERVICES MANAGER CPT-54212 Abx/Therapy Injection 09:25:05 [employer]ILROAD EMERG[employer]Y SERVICES MANAGER CPT-G0008 Administration of Influenza Virus Vaccine 13:36:47 CDT CPT-92721 Fluzone High-Dose Intramuscular Suspension 11/15 13:36:47 CDT CPT-J0897 Prolia 60 mg 08:50:41 CDT CPT-76880 Abx/Therapy Injection 08:50:41 CDT CPT-55518 Bone Density 12:06:12 CDT CPT-33528 Bone Density 08:54:40 CDT CPT-OV Office Visit 15:37:02 CDT CPT-31244 Postop F/U Visit 15:47:49 CDT CPT-31565 Postop F/U Visit 15:21:02 CDT CPT-TCMH Transitional Care Mgmt-High 07:52:27 CDT 20 20/06/01 CPT-69788 Venipuncture Draw Fee 13:51:18 CDT CPT-04104 Venipuncture Draw Fee 10:14:55 [employer]RO[employer] SERVICES MANAGER CPT-10038 Venipuncture Draw Fee 13:39:45 [employer]ROAD EM[employer]Y SERVICES MANAGER CPT-OV Office Visit 15:11:22 [employer]ILROAD EM[employer]Y SERVICES MANAGER CPT-92642 Venipuncture Draw Fee 09:20:49 [employer]ROAD EM[employer]Y SERVICES MANAGER CPT-74650 Venipuncture Draw Fee 16:52:15 [employer]ILROAD EMERG[employer]Y SERVICES MANAGER CPT-60020 Venipuncture Draw Fee 10:37:24 [employer]ROAD EM[employer]Y SERVICES MANAGER CPT-24845 Venipuncture Draw Fee 08:21:21 [employer]ILROAD EMERG[employer]Y SERVICES MANAGER CPT-00010 Venipuncture Draw Fee 08:30:20 [employer]ILROAD EMERG[employer]Y SERVICES MANAGER CPT-57552 Venipuncture Draw Fee 14:53:21 [employer]ILROAD EMERG[employer]Y SERVICES MANAGER CPT-66223 Venipuncture Draw Fee 09:40:56 [employer]RO[employer] EM[employer]Y SERVICES MANAGER CPT-86910 Venipuncture Draw Fee 10:30:47 [employer]ILROAD EMERG[employer]Y SERVICES MANAGER CPT-33479 Venipuncture Draw Fee 10:46:17 [employer]ROAD EMERG[employer]Y SERVICES MANAGER CPT-21603 Venipuncture Draw Fee 11:12:45 [employer]ILROAD EMERG[employer]Y SERVICES MANAGER CPT-01432 Venipuncture Draw Fee 09:53:33 [employer]ILROAD EMERG[employer]Y SERVICES MANAGER CPT-36972 Venipuncture Draw Fee 11:53:51 [employer]ILROAD EMERG[employer]Y SERVICES MANAGER CPT-25379 Venipuncture Draw Fee 10:33:50 [employer]ROAD EMERGENCY SERVICES MANAGER CPT-67433 Venipuncture Draw Fee 10:05:01 [employer]ILROAD EMERG[employer]Y SERVICES MANAGER CPT-05082 Venipuncture Draw Fee 14:32:52 [employer]ILROAD EMERG[employer]Y SERVICES MANAGER CPT-86631 Venipuncture Draw Fee 09:46:13 [employer]ILROAD EMERG[employer]Y SERVICES MANAGER CPT-28653 Venipuncture Draw Fee 11:34:27 [employer]ROAD EMERG[employer]Y SERVICES MANAGER CPT-45093 Venipuncture Draw Fee 13:17:16 [employer]ILROAD EMERG[employer]Y SERVICES MANAGER CPT-31141 Venipuncture Draw Fee 12:05:39 CDT CPT-07865 Venipuncture Draw Fee 12:49:12 CDT CPT-67627 Venipuncture Draw Fee 12:37:18 CDT CPT-06038 Venipuncture Draw Fee 10:57:11 CDT CPT-66312 Venipuncture Draw Fee 13:47:40 CDT CPT-07686 Venipuncture Draw Fee 10:02:17 CDT CPT-75480 TB Tubersol 17:32:32 CDT CPT-OV Office Visit 16:21:53 CDT CPT-OV Office Visit 15:49:22 CDT CPT-OV Office Visit 17:16:31 CDT CPT-OV Office Visit 10:43:31 CDT
--- OUTSIDE RECORDS SUMMARY | 2019-02-09 12:59 | XMS REPORT | Clinical Summary ---
Author Author Renaldo, Florecita Munoz Organization [facility] [employer] Address Unknown Phone Unavailable Allergies, Adverse Reactions, [...] PhD Hyperpotassemia GERD 530.81 Resolved Kylie Yokum INSTRUMENT REPAIR SUPERVISOR Esophageal reflux Health maintenance exam V70.0 Resolved Adolfo Yates MD Routine general medical examination at a health care facility Anemia 285.9 Resolved Kylie Yanet INSTRUMENT REPAIR SUPERVISOR Anemia, unspecified Personal history of malignant neoplasm of large intestine V10.05 Active Adam Yates MD Personal history of malignant neoplasm of large intestine Hypomagnesemia 275.2 Resolved Kylie Yanet INSTRUMENT REPAIR SUPERVISOR Disorders of magnesium metabolism Weakness 780.79 [...] Sebaceous cyst, scalp 706.2 Resolved Kylie Yokum INSTRUMENT REPAIR SUPERVISOR Sebaceous cyst Cervical lymphadenopathy, anterior, left 785.6 Resolv ed Kylie Yokum INSTRUMENT REPAIR SUPERVISOR Enlargement of lymph nodes Need for prophylactic vaccination and inoculation against in fluenza V04.81 Resolved Adam Yates MD Need for prophylactic vaccination and inoculation against influenza Preventive health care V70.0 Active Kylie Yokum INSTRUMENT REPAIR SUPERVISOR Routine general medical examination at a health care facility Thyroid nodule, left 241.0 Active Kylie Yokum A PRN Nontoxic uninodular goiter Screening mammogram V76.12 Active Kylie Yokum AP RN Other screening mammogram Mandy 706.2 Resolved Kylie Yokum INSTRUMENT REPAIR SUPERVISOR Sebaceous cyst Colon cancer, ascending 153.6 Resolved Kylie Yok um INSTRUMENT REPAIR SUPERVISOR Malignant neoplasm of ascending colon Foot pain, left 729.5 Active Sulema Naff OIL BURNER REPAIRER Pain in limb Splinter 919.6 Active Kylie Yokum INSTRUMENT REPAIR SUPERVISOR Superficial foreign body (splinter) of other, multiple, and unspecified sites, without major open wound and without mention of infection Rash 782.1 Active Kylie Yokum INSTRUMENT REPAIR SUPERVISOR R aurora and other nonspecific skin eruption ADENOCARCINOMA, COLON, 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 Dick Yates MD ABDOMINAL PAIN, RIGHT LOWER QUADRANT ICD-789.03 Inactive Kina Joshua INSTRUMENT REPAIR SUPERVISOR UNSPECIFIED VENOUS INSUFFICIENCY ICD-459.81 Elda ctive Adam Yates MD ABDOMINAL PAIN, GENERALIZED ICD-789.07 Inactive Hope Benavidez MD PhD ADENOCARCINOMA, ASCENDING COLON ICD-153.6 Inac abdelrahman Benavidez MD PhD Hyperkalemia ICD-276.7 Inactive Hope Benavidez MD PhD FEVER UNSPECIFIED ICD-780.60 Inactive Hope cohn MD PhD Health maintenance exam ICD-V70.0 Inactive Adolfo Yates MD Anemia ICD-285.9 Inactive Kylie Yokum INSTRUMENT REPAIR SUPERVISOR 07/24 GERD ICD-530.81 Inactive Kylie Yokoliver INSTRUMENT REPAIR SUPERVISOR 2015 Hypomagnesemia ICD-275.2 Inactive Kylie Yokum INSTRUMENT REPAIR SUPERVISOR Weakness ICD-780.79 Inactive Hope Benavidez MD [...] Sebaceous cyst, scalp ICD-706.2 Inactive Tracy Holt INSTRUMENT REPAIR SUPERVISOR Cervical lymphadenopathy, anterior, left ICD-785.6 Inactive Kylie Holt INSTRUMENT REPAIR SUPERVISOR Need for prophylactic vaccination and inoculation against in fluenza ICD-V04.81 Inactive Adam Yates MD Mandy ICD-706.2 Inactive Kylie Holt INSTRUMENT REPAIR SUPERVISOR 07/20 Colon cancer, ascending ICD-153.6 Inactive K jannyi Yanet AMY Diarrhea, functional ICD-564.5 Inactive Selena Yates MD Medication List Medication Instructions Start Date Stop Date Generic Name NDC Status Provider Patient Instruction VOLTAREN 1 % TRANSDERMAL GEL apply q 6-8 hour to left arm as needed for pain DICLOFENAC SODIUM 22414288013 Active Kylie Holt INSTRUMENT REPAIR SUPERVISOR Active COQ10 100 MG ORAL CAPSULE 1 daily COENZYME Q10 889385 57171 Active LETY Nation Active VITAMIN D3 2000 UNIT ORAL CAPSULE Melaleuca-One daily CHOLECALCIFEROL 22032709434 Active Kylie Holt INSTRUMENT REPAIR SUPERVISOR Active PROBIOTIC DAILY ORAL CAPSULE Take one daily PROBIO TIC PRODUCT 12198231571 Active Kylie Holt APRN Active IRON 325 (65 Fe) MG ORAL TABLET 1 every other day FERROUS SULFATE 05035382297 No Longer Active Kylie Holt AMY Active FLORANEX ORAL PACKET 1 pack three times daily, for bowel health LACTOBACILLUS 91711248444 No Longer Active Kylie Holt INSTRUMENT REPAIR SUPERVISOR Active LOMOTIL 2.5-0.025 MG ORAL TABLET 1 tab by mouth prn 23/10/23 DIPHENOXYLATE-ATROPINE 56298683273 No Longer Active Kylie Lundum INSTRUMENT REPAIR SUPERVISOR Active MAGNESIUM GLUCONATE 250 MG ORAL TABLET 1 tab tid 23/10/23 MAGNESIUM GLUCONATE 41585485283 No Longer Active Kylie Lundum INSTRUMENT REPAIR SUPERVISOR Active CYANOCOBALAMIN 1000 MCG/ML INJECTION SOLUTION 1 injection ev ruben 2 weeks CYANOCOBALAMIN 77242178535 No Longer Active Kylie boyd INSTRUMENT REPAIR SUPERVISOR Active ATENOLOL 25 MG ORAL TABLET 1/2 pill by mouth daily, fo r headaches, blood pressure ATENOLOL 81704607082 Active Kylie Holt INSTRUMENT REPAIR SUPERVISOR Active PROPRANOLOL HCL 80 MG ORAL TABLET 1 tab tue. and thur. PROPRANOLOL HCL 94090991347 No Longer Active Hope Benavidez MD PhD A ctive VITAMIN D3 4000 IU 1 tab 3 times daily VITAMIN D3 4000 IU No Longer Active Hope Benavidez MD PhD Active BACTRIM DS 800-160 MG ORAL TABLET 1 pill by mouth twice claudio y, for UTI SULFAMETHOXAZOLE-TRIMETHOPRIM 33884662651 No Longer Active Hope Benavidez MD PhD Active PROLIA 60 MG/ML SUBCUTANEOUS SOLUTION 1 shot every 6 months for osteoprosis DENOSUMAB 58414512214 Active Hope Benavidez MD PhD Active CALCIUM + D + K 750-500-40 MG-UNT-MCG ORAL TABLET 1 tab by m harvinder twice daily CALCIUM-VITAMIN D-VITAMIN K 01414807762 Active Hope valdez MD PhD Active DAILY VALUE MULTIVITAMIN ORAL TABLET 1 tab by mouth twice daily 201 05/16/14 MULTIPLE VITAMIN 15493247072 Active Hope Benavidez MD PhD Acti ve FISH OIL 306 MG CAPS 1 tab by mouth three times daily OMEGA-3 FATTY ACIDS 60329157366 Active Hope Benavidez MD PhD Active LUTEIN 10 MG ORAL TABLET 1 tab daily LUTEIN 02495777 408 Active Hope Benavidez MD PhD Active TRIAMTERENE-HCTZ 37.5-25 MG ORAL TABLET 1 tab by mouth daily 10/22 TRIAMTERENE-HCTZ 92245008197 Active LETY Rossi CYCLOBENZAPRINE HCL 10 MG ORAL TABLET 1 tablet by mout h three times daily as needed for headaches CYCLOBENZAPRINE HCL 81047391105 No Longer Active Adam Yates MD Active OMEPRAZOLE 20 MG ORAL CAPSULE DELAYED RELEASE 1 tablet by mo [facility] daily for GERD OMEPRAZOLE 05342783083 No Longer Active Adam Yates MD Active ZOFRAN 8 MG ORAL TABLET 1 tab by mouth every 12 hours prn 4 ONDANSETRON HCL 97472697673 No Longer Active Adam Yates MD Active PHENADOZ 25 MG RECTAL SUPPOSITORY 1 every 4 hrs. PRN 2 PROMETHAZINE HCL 70237292901 No Longer Active Adam Yates MD A ctive POTASSIUM CHLORIDE 20 MEQ ORAL PACKET by mouth twice a day prn 2 POTASSIUM CHLORIDE 92617980680 No Longer Active Adam Carpenter MD Active PROMETHAZINE HCL 25 MG ORAL TABLET 1 Q. 4 hr. PRN PROMETHAZINE HCL 98594808917 No Longer Active Adam Yates MD Active INNOPRAN XL 120 MG ORAL CAPSULE EXTENDED RELEASE 24 HO UR Take one by mouth daily PROPRANOLOL HCL SR BEADS 17463884614 No Longer Active Adam Yates MD Active FLAGYL 500 MG ORAL TABLET 1 pill by mouth three times daily, for diarrhea METRONIDAZOLE 85428271891 No Longer Active Hope landers MD PhD Active DYAZIDE 37.5-25 MG ORAL CAPSULE 1 qd TRIA MTERENE-HCTZ 63026221066 No Longer Active Hope Benavidez MD PhD Active PROZAC 20 MG ORAL CAPSULE 1 q d FLUOXETINE HCL 76855848813 No Longer Active Hope Benavidez MD PhD Active SIMVASTATIN 40 MG ORAL TABLET 1 qd SIMVAS TATIN 41427314656 No Longer Active Adam Yates MD Active MELOXICAM 15 MG ORAL TABLET 1 qd MELOXICAM 94967120348 No Longer Active Adam Yates MD Active IMODIUM A-D 2 MG ORAL TABLET 2 onset at diarrhea and prn. LOPERAMIDE HCL 07398884989 Active Hope Benavidez MD PhD Active EXCEDRIN EXTRA STRENGTH 250-250-65 MG ORAL TABLET 1-2 q6h AR N headache [id number] 52293126588 Active Hope Benavidez MD PhD Active FLAGYL 500 MG ORAL TABLET 1 qid METRONIDAZOL E 93085574463 No Longer Active Adam Yates MD Active LEVAQUIN 750 MG ORAL TABLET 1 qd LEVOFLOXAC IN 40835456083 No Longer Active Adam Yates MD Active ADULT ASPIRIN LOW STRENGTH 81 MG ORAL TABLET DISINTEGRATING 1 qd ASPIRIN 66096132021 Active Hope Benavidez MD PhD Active LEVAQUIN 750 MG ORAL TABLET 1 qd LEVAQUIN 750 MG ORAL TABLET 516253 LEVOFLOXACIN Inactive FLAGYL 500 MG ORAL TABLET 1 qid FLAGYL 500 MG ORAL TABLET 623395 METRONIDAZOLE Inactive MELOXICAM 15 MG ORAL TABLET 1 qd MELOXICAM 15 MG ORAL TABLET 056969 MELOXICAM Inactive SIMVASTATIN 40 MG ORAL TABLET 1 qd SIMVASTATIN 40 MG ORAL TABLET 957393 SIMVASTATIN Inactive PROZAC 20 MG ORAL CAPSULE 1 q d PROZAC 20 MG ORAL CAPSULE 961960 FLUOXETINE HCL Inactive DYAZIDE 37.5-25 MG ORAL CAPSULE 1 qd 5 DYAZIDE 37.5-25 MG ORAL CAPSULE 358269 TRIAMTERENE-HCTZ Inactive INNOPRAN XL 120 MG ORAL CAPSULE EXTENDED RELEASE 24 HO UR Take one by mouth daily INNOPRAN XL 120 MG ORAL CAPSULE EXTENDED RELEASE 24 HOUR PROPRANOLOL HCL SR BEADS Inactive PROMETHAZINE HCL 25 MG ORAL TABLET 1 Q. 4 hr. PRN 2013 PROMETHAZINE HCL 25 MG ORAL TABLET 345541 PROMETHAZINE HCL Inactive POTASSIUM CHLORIDE 20 MEQ ORAL PACKET by mouth twice a day prn 2 POTASSIUM CHLORIDE 20 MEQ ORAL PACKET 6455561 POTASSIUM CHLORIDE Inactive PHENADOZ 25 MG RECTAL SUPPOSITORY 1 every 4 hrs. PRN 2 PHENADOZ 25 MG RECTAL SUPPOSITORY 442544 PROMETHAZINE HCL Inactive ZOFRAN 8 MG ORAL TABLET 1 tab by mouth every 12 hours prn 4 ZOFRAN 8 MG ORAL TABLET 059386 ONDANSETRON HCL Inactive OMEPRAZOLE 20 MG ORAL CAPSULE DELAYED RELEASE 1 tablet by mo uth daily for GERD OMEPRAZOLE 20 MG ORAL CAPSULE DELAYED RELEASE 19 8051 OMEPRAZOLE Inactive CYCLOBENZAPRINE HCL 10 MG ORAL TABLET 1 tablet by mout h three times daily as needed for headaches CYCLOBENZAPRINE HCL 10 MG ORAL TABLET 449969 CYCLOBENZAPRINE HCL Inactive VITAMIN D3 4000 IU 1 tab 3 times daily VITAMIN D3 4000 IU Inactive PROPRANOLOL HCL 80 MG ORAL TABLET 1 tab tue. and thur. PROPRANOLOL HCL 80 MG ORAL TABLET 755598 PROPRANOLOL HCL Inacti ve CYANOCOBALAMIN 1000 MCG/ML INJECTION SOLUTION 1 injection ev ruben 2 weeks CYANOCOBALAMIN 1000 MCG/ML INJECTION SOLUTION 30 9594 CYANOCOBALAMIN Inactive MAGNESIUM GLUCONATE 250 MG ORAL TABLET 1 tab tid 20 23/10/23 MAGNESIUM GLUCONATE 250 MG ORAL TABLET 720614 MAGNESIUM GLUCONATE Inactive LOMOTIL 2.5-0.025 MG ORAL TABLET 1 tab by mouth prn 20 23/10/23 LOMOTIL 2.5-0.025 MG ORAL TABLET 3319780 DIPHENOXYLATE-ATROPINE Inac tive FLORANEX ORAL PACKET 1 pack three times daily, for bowel health FLORANEX ORAL PACKET LACTOBACILLUS Inactive IRON 325 (65 Fe) MG ORAL TABLET 1 every other day 2015 IRON 325 (65 Fe) MG ORAL TABLET 367239 FERROUS SULFATE Inactive FLAGYL 500 MG ORAL TABLET 1 pill by mouth three times daily, for diarrhea FLAGYL 500 MG ORAL TABLET 326193 METRONIDAZOLE I nactive BACTRIM DS 800-160 MG ORAL TABLET 1 pill by mouth twice claudio y, for UTI BACTRIM DS 800-160 MG ORAL TABLET 299678 SULFAMETHOXAZOLE-TRIMETHOPRIM Inactive Advance Directives Directive Description Start [...] d blood pressure, diastolic 70 mm[Hg] BP dboson blood pressure, systolic 141 mm[Hg] BP sys [...] ... - Chemistry sodium, serum 138 mmol/L 309-841 1979/12/15 potassium, serum 4.0 mmol/L 3.5-5.2 chloride, serum [...] 11 .0-15.0 platelet count 157 THOUSAND/UL 10*3/mm3 094-622 9139/04/20 mean platelet volume 8.9 fL 7.5-12.5 Lab Report: CEA - Serology carcinoembryonic antigen 0.9 ng/mL Encounters Code Encounter Date Provider Facility CPT-86761 Level 2 Est. Patient 14:27:16 ROLL SHEETING CUTTER Kylie boyd [facility] CPT-52818 Level 3 Est. Patient 17:54:48 CDT Kylie boyd [facility] CPT-53442 Level 3 Est. Patient 16:26:30 CDT Kina blackmon [facility] CPT-85448 Level 3 New Patient 16:22:01 ROLL SHEETING CUTTER Adam Yates MD [facility] CPT-94191 Level 4 Est. Patient 17:00:48 CDT [facility] CPT-92127 Level 3 Est. Patient 13:15:54 CDT Kylie boyd [facility] CPT-17114 Level 3 Est. Patient 09:10:11 CDT Kylie boyd [facility] CPT-32025 Level 4 Est. Patient 12:08:30 ROLL SHEETING CUTTER Hope cohn MD [facility] CPT-95243 Level 4 Est. Patient 19:08:42 ROLL SHEETING CUTTER Hope cohn MD PhD [facility] CPT-15893 Level 4 Est. Patient 20:04:51 CDT Hope cohn MD PhD [facility] CPT-85088 Level 3 New Patient 01:46:11 ROLL SHEETING CUTTER Hope landers MD PhD [facility] Procedures Code Procedure Name Date Entry Date Standard Desc ription CPT-08905 Microalbumin - LAB USE ONLY 09:41:32 ROLL SHEETING CUTTER 20 23/01/15 CPT-41776 Free T4 - LAB USE ONLY 09:41:32 ROLL SHEETING CUTTER CPT-81538 TSH - LAB USE ONLY 09:41:32 ROLL SHEETING CUTTER CPT-45120 BMP - LAB USE ONLY 09:41:32 ROLL SHEETING CUTTER CPT-71382 Venipuncture Draw Fee 09:41:32 ROLL SHEETING CUTTER CPT-95596 First Vx - Ix admin for Medicare patients 11:19:30 CDT CPT-48284 Fluzone High-Dose Intramuscular Suspension 12/07 11:19:30 CDT CPT-J0897 Prolia 60 mg 14:55:42 CDT CPT-57631 Abx/Therapy Injection 14:55:42 CDT CPT-90521 Bone Density - XRAY USE ONLY 10:27:12 CDT 2 CPT-G0439 Subsequent Annual Wellness Exam 17:54:53 CDT CPT-50033 Foot, left, comp min 3V - XRAY USE ONLY 12:22:49 CDT CPT-G0009 Administration of Pneumococcal Vaccine 3 12:18:00 CDT CPT-16381 Pneumovax 23 Injection Injectable 25 MCG /0.5ML 12:18:00 CDT CPT-J0897 Prolia 60 mg 14:14:16 ROLL SHEETING CUTTER CPT-13589 Abx/Therapy Injection 14:14:15 ROLL SHEETING CUTTER CPT-10878 Lipid - LAB USE ONLY 10:01:52 ROLL SHEETING CUTTER 2 CPT-58926 Calcium - LAB USE ONLY 10:01:51 ROLL SHEETING CUTTER CPT-44931 Venipuncture Draw Fee 10:01:51 ROLL SHEETING CUTTER CPT-LR Lesion Removal 16:22:01 ROLL SHEETING CUTTER CPT-85119 TSH - LAB USE ONLY 14:26:02 CDT CPT-20735 CMP - LAB USE ONLY 14:26:01 CDT CPT-90977 CBC with Diff - LAB USE ONLY 14:26:01 CDT 2 CPT-69187 Venipuncture Draw Fee 14:26:01 CDT CPT-09574 First Vx - Ix admin for Medicare patients 13:27:08 CDT CPT-99278 Fluzone High-Dose Intramuscular Suspension 11/26 13:27:08 CDT CPT-G0438 Initial Annual Wellness Exam 14:19:57 CD T CPT-G0009 Administration of Pneumococcal Vaccine 9 11:36:25 CDT CPT-65633 Prevnar 13 Intramuscular Suspension 1 1:36:25 CDT CPT-95853 Prevnar 13 Intramuscular Suspension 1 0:40:58 CDT CPT-J0897 Prolia 60 mg 10:37:16 CDT CPT-71436 Abx/Therapy Injection 10:37:16 CDT CPT-J0897 Prolia 60 mg 16:09:34 ROLL SHEETING CUTTER CPT-J0897 Prolia 60 mg 11:10:35 ROLL SHEETING CUTTER CPT-32789 Abx/Therapy Injection 11:10:35 ROLL SHEETING CUTTER CPT-000 Give Appropriate Flu Vaccine 17:01:15 ROLL SHEETING CUTTER 2 CPT-41187 Fluzone High Dose (65+) 15:03:08 ROLL SHEETING CUTTER 02/15 CPT-57418 Immunization Single Admin 15:03:08 ROLL SHEETING CUTTER 2014 CPT-OV Office Visit 15:58:06 CDT CPT-J0897 Prolia 60 mg 08:45:38 CDT CPT-15658 Abx/Therapy Injection 08:45:38 CDT CPT-J3420 Vitamin B12 1000mcg (Cyanocobalamin) 09:26:20 ROLL SHEETING CUTTER CPT-06203 Abx/Therapy Injection 09:26:20 ROLL SHEETING CUTTER CPT-J3420 Vitamin B12 1000mcg (Cyanocobalamin) 09:44:40 ROLL SHEETING CUTTER CPT-14589 Abx/Therapy Injection 09:44:40 ROLL SHEETING CUTTER CPT-J3420 Vitamin B12 1000mcg (Cyanocobalamin) 09:15:54 ROLL SHEETING CUTTER CPT-50390 Abx/Therapy Injection 09:15:54 ROLL SHEETING CUTTER CPT-J3420 Vitamin B12 1000mcg (Cyanocobalamin) 09:46:44 ROLL SHEETING CUTTER CPT-63457 Abx/Therapy Injection 09:46:44 ROLL SHEETING CUTTER CPT-J3420 Vitamin B12 1000mcg (Cyanocobalamin) 09:47:34 ROLL SHEETING CUTTER CPT-82965 Abx/Therapy Injection 09:47:34 ROLL SHEETING CUTTER CPT-J3420 Vitamin B12 1000mcg (Cyanocobalamin) 14:35:50 ROLL SHEETING CUTTER CPT-J3420 Vitamin B12 1000mcg (Cyanocobalamin) 09:25:05 ROLL SHEETING CUTTER CPT-26499 Abx/Therapy Injection 09:25:05 ROLL SHEETING CUTTER CPT-G0008 Administration of Influenza Virus Vaccine 13:36:47 CDT CPT-90020 Fluzone High-Dose Intramuscular Suspension 11/15 13:36:47 CDT CPT-J0897 Prolia 60 mg 08:50:41 CDT CPT-83914 Abx/Therapy Injection 08:50:41 CDT CPT-74126 Bone Density 12:06:12 CDT CPT-12785 Bone Density 08:54:40 CDT CPT-OV Office Visit 15:37:02 CDT CPT-42966 Postop F/U Visit 15:47:49 CDT CPT-70884 Postop F/U Visit 15:21:02 CDT CPT-TCMH Transitional Care Mgmt-High 07:52:27 CDT 20 20/06/01 CPT-44241 Venipuncture Draw Fee 13:51:18 CDT CPT-47333 Venipuncture Draw Fee 10:14:55 ROLL SHEETING CUTTER CPT-14535 Venipuncture Draw Fee 13:39:45 ROLL SHEETING CUTTER CPT-OV Office Visit 15:11:22 ROLL SHEETING CUTTER CPT-35468 Venipuncture Draw Fee 09:20:49 ROLL SHEETING CUTTER CPT-02908 Venipuncture Draw Fee 16:52:15 ROLL SHEETING CUTTER CPT-46398 Venipuncture Draw Fee 10:37:24 ROLL SHEETING CUTTER CPT-23469 Venipuncture Draw Fee 08:21:21 ROLL SHEETING CUTTER CPT-50480 Venipuncture Draw Fee 08:30:20 ROLL SHEETING CUTTER CPT-70058 Venipuncture Draw Fee 14:53:21 ROLL SHEETING CUTTER CPT-00645 Venipuncture Draw Fee 09:40:56 ROLL SHEETING CUTTER CPT-21644 Venipuncture Draw Fee 10:30:47 ROLL SHEETING CUTTER CPT-66201 Venipuncture Draw Fee 10:46:17 ROLL SHEETING CUTTER CPT-82688 Venipuncture Draw Fee 11:12:45 ROLL SHEETING CUTTER CPT-24358 Venipuncture Draw Fee 09:53:33 ROLL SHEETING CUTTER CPT-83116 Venipuncture Draw Fee 11:53:51 ROLL SHEETING CUTTER CPT-48493 Venipuncture Draw Fee 10:33:50 ROLL SHEETING CUTTER CPT-17899 Venipuncture Draw Fee 10:05:01 ROLL SHEETING CUTTER CPT-48691 Venipuncture Draw Fee 14:32:52 ROLL SHEETING CUTTER CPT-25289 Venipuncture Draw Fee 09:46:13 ROLL SHEETING CUTTER CPT-36188 Venipuncture Draw Fee 11:34:27 ROLL SHEETING CUTTER CPT-48396 Venipuncture Draw Fee 13:17:16 ROLL SHEETING CUTTER CPT-69837 Venipuncture Draw Fee 12:05:39 CDT CPT-97771 Venipuncture Draw Fee 12:49:12 CDT CPT-52330 Venipuncture Draw Fee 12:37:18 CDT CPT-82977 Venipuncture Draw Fee 10:57:11 CDT CPT-27777 Venipuncture Draw Fee 13:47:40 CDT CPT-28438 Venipuncture Draw Fee 10:02:17 CDT CPT-61268 TB Tubersol 17:32:32 CDT CPT-OV Office Visit 16:21:53 CDT CPT-OV Office Visit 15:49:22 CDT CPT-OV Office Visit 17:16:31 CDT CPT-OV Office Visit 10:43:31 CDT
--- OUTSIDE RECORDS SUMMARY | 2019-02-09 13:00 | XMS REPORT | Clinical Summary ---
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 Keo Joseph Carcinoma in situ of breast ADENOCARCINOMA, ASCENDING [...] PhD Disorders of magnesium metabolism Weakness 780.79 Active Hope Benavidez MD PhD Other malaise and fatigue Aftercare following surgery of the teeth,oral cavity a nd digestive system, NEC V58.75 Resolved Adam Yates MD Af tercare following surgery of the teeth,oral cavity and digestive system, NEC FH Stroke V17.1 Active Adam Yates MD Family history of stroke (cerebrovascular) ABDOMINAL PAIN, RIGHT LOWER QUADRANT ICD-789.03 Inactive Kina King AMY ADENOCARCINOMA, COLON, 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.4 Dick Yates MD ABDOMINAL PAIN, GENERALIZED ICD-789.07 Inactive Hope Benavidez MD PhD FEVER UNSPECIFIED ICD-780.60 Inactive Hope cohn MD PhD UNSPECIFIED VENOUS INSUFFICIENCY ICD-459.81 Elda ctive Adam Yates MD ADENOCARCINOMA, ASCENDING COLON ICD-153.6 Inac tive Hope Benavidez MD PhD Hyperkalemia ICD-276.7 Inactive Hope Benavidez MD PhD Health maintenance exam ICD-V70.0 Bam Yates MD Aftercare following surgery of the teeth,oral cavity a nd digestive system, NEC ICD-V58.75 Inactive Adam Yates MD Medication List Medication Instructions Start Date Stop Date Generic Name NDC Status Provider Patient Instruction MAGNESIUM GLUCONATE 250 MG TABS 1 tab 3x aday M AGNESIUM GLUCONATE 23942146584 Active Adam Yates MD Active PROZAC 20 MG CAPS 1 q d FLUOXETINE HCL 33965 396068 No Longer Active Hope Benavidez MD PhD Active INNOPRAN XL 120 MG [id number] Take one by mouth daily PROPRANOLOL HCL SR BEADS 68064616960 Active Hope Benavidez MD PhD Active POTASSIUM CHLORIDE 20 MEQ PACK by mouth twice a day prn POTASSIUM CHLORIDE 29504905339 Active Adam Yates MD Activ e CYCLOBENZAPRINE HCL 10 MG TABS 1 tablet by mouth three times daily as needed for headaches CYCLOBENZAPRINE HCL 37641720326 Active Selena Yates MD Active SIMVASTATIN 40 MG TABS 1 qd SIMVASTATIN 004 44784652 No Longer Active Adam Yates MD Active MELOXICAM 15 MG TABS 1 qd MELOXICAM 8486331 4669 No Longer Active Adam Yates MD Active ATENOLOL 50 MG TABS 1/2 tab q other day ATENOLOL 47945139498 Active Hope Benavidez MD PhD Active OMEPRAZOLE 20 MG CPDR 1 tablet by mouth daily for GERD OMEPRAZOLE 93851047648 Active Hope Benavidez MD PhD Active IMODIUM A-D 2 MG TABS 2 onset at diarrhea and prn. LOPERAMIDE HCL 80253133611 Active Hope Benavidez MD PhD Active PHENADOZ 25 MG SUPP 1 every 4 hrs. PRN PROMETHAZINE HCL 87509200445 Active Hope Benavidez MD PhD Active PROMETHAZINE HCL 25 MG TABS 1 Q. 4 hr. PRN PROMETH AZINE HCL 31560156799 Active Hope Benavidez MD PhD Active EXCEDRIN EXTRA STRENGTH 250-250-65 MG TABS 1-2 q6h PRN headache 201 04/16/21 [id number] 92056136073 Active Hope Benavidez MD PhD Active ZOFRAN 4 MG TABS 1 q 6 hr prn ONDANSETRON HCL 6876043 7002 Active Fay Alberts Active FLAGYL 500 MG TABS 1 qid METRONIDAZOLE 22780 628751 No Longer Active Adam Yates MD Active LEVAQUIN 750 MG TABS 1 qd LEVOFLOXACIN 5486 1882190 No Longer Active Adam Yates MD Active DYAZIDE 37.5-25 MG CAPS 1 qd TRIAMTERENE-HCTZ 5886 9029883 Active Hope Benavidez MD PhD Active ADULT ASPIRIN LOW STRENGTH 81 MG TBDP 1 qd A SPIRIN 93463926018 Active Hope Benavidez MD PhD Active LEVAQUIN 750 MG TABS 1 qd LEVAQUIN 750 MG T ABS 383669 LEVOFLOXACIN Inactive FLAGYL 500 MG TABS 1 qid FLAGYL 500 MG TABS 597616 METRONIDAZOLE Inactive MELOXICAM 15 MG TABS 1 qd MELOXICAM 15 MG T ABS 741214 MELOXICAM Inactive SIMVASTATIN 40 MG TABS 1 qd SIMVASTATIN 40 MG TABS 833417 SIMVASTATIN Inactive PROZAC 20 MG CAPS 1 q d PROZAC 20 MG CAPS 31 0385 FLUOXETINE HCL Inactive Advance Directives Directive Description Start Date [...] Range Description blood pressure, diastolic - 8462-4 76 mm[Hg] [...] - 3141-9 113 [lb_av] Weigh t Measured blood pressure, diastolic - 8462-4 76 mm[Hg] BP dobson blood pressure, systolic - 8480-6 129 mm[Hg] BP sys height E&M - 8302-2 62.5 [in_us] Bdy h eight pulse rate E&M - 8867-4 69 /min H eart rate temperature E&M 98.8 [degF] Body temp erature weight E&M - 3141-9 109 [lb_av] Weigh t Measured blood pressure, diastolic - 8462-4 71 mm[Hg] BP dobson blood pressure, systolic - 8480-6 116 mm[Hg] BP sys height E&M - 8302-2 62.5 [in_us] Bdy h eight pulse rate E&M - 8867-4 67 /min H eart rate temperature E&M 98.5 [degF] Body temp erature weight E&M - 3141-9 117.56 [lb_av] Weigh t Measured blood pressure, diastolic - 8462-4 78 mm[Hg] BP dobson blood pressure, systolic - 8480-6 123 mm[Hg] BP sys height E&M - 8302-2 64 [in_us] Bdy h eight pulse rate E&M - 8867-4 68 /min H eart rate temperature E&M 98.3 [degF] Body temp erature weight E&M - 3141-9 125 [lb_av] Weigh t Measured blood pressure, diastolic - 8462-4 69 mm[Hg] BP dobson blood pressure, systolic - 8480-6 102 mm[Hg] BP sys height E&M - 8302-2 64 [in_us] Bdy h eight pulse rate E&M - 8867-4 81 /min H eart rate temperature E&M 99.5 [degF] Body temp erature weight E&M - 3141-9 136 [lb_av] Weigh t Measured blood pressure, diastolic - 8462-4 83 mm[Hg] BP dobson blood pressure, systolic - 8480-6 133 mm[Hg] BP sys height E&M - 8302-2 64 [in_us] Bdy h eight pulse rate E&M - 8867-4 99 /min H eart rate temperature E&M 99.2 [degF] Body temp erature weight E&M - 3141-9 138 [lb_av] Weigh t Measured blood pressure, diastolic - 8462-4 80 mm[Hg] BP dobson blood pressure, systolic - 8480-6 144 mm[Hg] BP sys height E&M - 8302-2 64 [in_us] Bdy h eight pulse rate E&M - 8867-4 81 /min H eart rate temperature E&M 100. [degF] Body temp erature weight E&M - 3141-9 144 [lb_av] Weigh t Measured Diagnostic Results Date Name Value Unit Range Description Immunizations: Immunization Administrati on PPD RESULTS - Challenge tests PPD results in mm 0mm mm Lab Report: Basic Metabolic Panel - Chem istry sodium, serum 137 mmol/L 413-995 4157/11/01 potassium, serum 3.7 mmol/L 3.5-5.2 chloride, serum 100 mmol/L 98-107 carbon dioxide, venous blood 31.8 mmol/L 21.0-32 .0 blood glucose 98 mg/dL 65-110 calcium, serum 8.6 mg/dL 8.5-10.1 urea nitrogen, blood 23 mg/dL 7-18 creatinine, serum 1.50 mg/dL 0.60-1.30 sodium, serum 136 mmol/L 249-790 9913/05/02 potassium, serum 4.1 mmol/L 3.5-5.2 chloride, serum 99 mmol/L 98-107 carbon dioxide, venous blood 30.7 mmol/L 21.0-32 .0 blood glucose 79 mg/dL 65-110 calcium, serum 8.7 mg/dL 8.5-10.1 urea nitrogen, blood 11 mg/dL 7-18 creatinine, serum 1.10 mg/dL 0.60-1.30 Lab Report: CBC - Hematology leukocyte count, blood 12.2 10^3/MM^3 10*3/mm3 4.6-10.2 erythrocyte (RBC) count 4.08 10^6/MM^3 10*6/mm3 4.04-5.4 8 hemoglobin, blood 10.5 g/dL 12.0-16.0 hematocrit, blood 32.8 % 36.0-46.0 mean corpuscular volume, RBC 80 fL 80-97 mean corpuscular hemoglobin, RBC 25.7 pg 27. 0-31.2 mean corpuscular hemoglobin concentration, RBC 31.9 G/DL % 31.8-35.4 red blood cell distribution width 16.1 % 11 .6-14.8 platelet count 724 Verified By Repeat Analysis 10^3/mm ^3 10*3/mm3 142-424 Lab Report: CBC W/ DIFF, BMP, YANCI, AN AEROBIC CX - Chemistry sodium, serum 137 mmol/L potassium, serum 3.8 mmol/L blood glucose 79 mg/dL creatinine, serum 1.02 mg/dL magnesium, serum 1.2 mg/dL Lab Report: CBC W/ DIFF, BMP, YANCI, AN AEROBIC CX - Hematology leukocyte count, blood 8.7 10*3/mm3 hemoglobin, blood 10.8 g/dL platelet count 319 10*3/mm3 Lab Report: CBC W/DIFF - Hematology leukocyte count, blood 9.0 10^3/MM^3 10*3/mm3 4.6-10.2 neutrophils as percent of blood leukocytes 79.9 % 42.2-75.2 monocytes as percent of blood leukocytes 7.3 % 1.7-9.3 lymphocytes as percent of blood leukocytes 10.9 % 20.5-51.1 erythrocyte (RBC) count 3.30 10^6/MM^3 10*6/mm3 4.04-5.4 8 hemoglobin, blood 11.0 g/dL 12.0-16.0 hematocrit, blood 33.1 % 36.0-46.0 mean corpuscular volume, RBC 100 fL 80-97 mean corpuscular hemoglobin, RBC 33.3 pg 27. 0-31.2 mean corpuscular hemoglobin concentration, RBC 33.3 G/DL % 31.8-35.4 red blood cell distribution width 18.6 % 11 .6-14.8 platelet count 133 10^3/MM^3 10*3/mm3 411-545 7233/01/17 leukocyte count, blood 3.1 10^3/MM^3 10*3/mm3 4.6-10.2 neutrophils as percent of blood leukocytes 72.6 % 42.2-75.2 monocytes as percent of blood leukocytes 10.8 % 1.7-9.3 lymphocytes as percent of blood leukocytes 13.7 % 20.5-51.1 erythrocyte (RBC) count 2.56 10^6/MM^3 10*6/mm3 4.04-5.4 8 hemoglobin, blood 8.8 g/dL 12.0-16.0 hematocrit, blood 26.3 % 36.0-46.0 mean corpuscular volume, RBC 103 fL 80-97 mean corpuscular hemoglobin, RBC 34.3 pg 27. 0-31.2 mean corpuscular hemoglobin concentration, RBC 33.5 G/DL % 31.8-35.4 red blood cell distribution width 19.7 % 11 .6-14.8 platelet count 22 10^3/MM^3 10*3/mm3 255-009 9970/11/19 leukocyte count, blood 10.4 10^3/MM^3 10*3/mm3 4.6-10.2 neutrophils as percent of blood leukocytes 68.9 % 42.2-75.2 monocytes as percent of blood leukocytes 11.7 % 1.7-9.3 lymphocytes as percent of blood leukocytes 16.8 % 20.5-51.1 erythrocyte (RBC) count 3.29 10^6/MM^3 10*6/mm3 4.04-5.4 8 hemoglobin, blood 9.8 g/dL 12.0-16.0 hematocrit, blood 30.0 % 36.0-46.0 mean corpuscular volume, RBC 91 fL 80-97 mean corpuscular hemoglobin, RBC 29.9 pg 27. 0-31.2 mean corpuscular hemoglobin concentration, RBC 32.7 G/DL % 31.8-35.4 red blood cell distribution width 17.9 % 11 .6-14.8 platelet count 109 Verified By Repeat Analysis 10^3/mm ^3 10*3/mm3 254-997 0285/12/10 leukocyte count, blood 7.8 10^3/MM^3 10*3/mm3 4.6-10.2 neutrophils as percent of blood leukocytes 76.3 % 42.2-75.2 monocytes as percent of blood leukocytes 8.9 % 1.7-9.3 lymphocytes as percent of blood leukocytes 12.6 % 20.5-51.1 erythrocyte (RBC) count 3.19 10^6/MM^3 10*6/mm3 4.04-5.4 8 hemoglobin, blood 10.0 g/dL 12.0-16.0 hematocrit, blood 30.2 % 36.0-46.0 mean corpuscular volume, RBC 94 fL 80-97 mean corpuscular hemoglobin, RBC 31.2 pg 27. 0-31.2 mean corpuscular hemoglobin concentration, RBC 33.1 G/DL % 31.8-35.4 red blood cell distribution width 18.1 % 11 .6-14.8 platelet count 102 10^3/MM^3 10*3/mm3 142-424 Lab Report: CBC W/DIFF, Comp. Metabolic Panel - Chemistry sodium, serum 139 mmol/L 890-800 9436/12/03 potassium, serum 3.7 mmol/L 3.5-5.2 chloride, serum 99 mmol/L 98-107 carbon dioxide, venous blood 30.6 mmol/L 21.0-32 .0 blood glucose 117 mg/dL 65-110 urea nitrogen, blood 15 mg/dL 7-18 creatinine, serum 1.50 mg/dL 0.60-1.30 alanine aminotransferase (SGPT), serum 27 U/L -78 aspartate aminotransferase (SGOT), serum 24 U/L 15-37 alkaline phosphatase, serum 169 U/L 50-136 calcium, serum 9.0 mg/dL 8.5-10.1 bilirubin, serum, total 0.40 mg/dL 0.00-1.00 sodium, serum 137 mmol/L 851-595 7175/10/01 potassium, serum 3.5 mmol/L 3.5-5.2 chloride, serum 96 mmol/L 98-107 carbon dioxide, venous blood 33.5 mmol/L 21.0-32 .0 blood glucose 121 mg/dL 65-110 urea nitrogen, blood 23 mg/dL 7-18 creatinine, serum 1.30 mg/dL 0.60-1.30 alanine aminotransferase (SGPT), serum 17 U/L 78 aspartate aminotransferase (SGOT), serum 17 U/L 15-37 alkaline phosphatase, serum 109 U/L 50-136 calcium, serum 8.8 mg/dL 8.5-10.1 bilirubin, serum, total 0.60 mg/dL 0.00-1.00 potassium, serum 3.1 mmol/L 3.5-5.2 chloride, serum 96 mmol/L 98-107 carbon dioxide, venous blood 32.7 mmol/L 21.0-32 .0 blood glucose 102 mg/dL 65-110 urea nitrogen, blood 35 mg/dL 7-18 creatinine, serum 1.40 mg/dL 0.60-1.30 alanine aminotransferase (SGPT), serum 17 U/L 12-78 aspartate aminotransferase (SGOT), serum 17 U/L 15-37 alkaline phosphatase, serum 145 U/L 50-136 calcium, serum 7.9 mg/dL 8.5-10.1 bilirubin, serum, total 0.60 mg/dL 0.00-1.00 sodium, serum 139 mmol/L 721-187 3294/10/17 potassium, serum 3.1 mmol/L 3.5-5.2 chloride, serum 98 mmol/L 98-107 carbon dioxide, venous blood 29.8 mmol/L 21.0-32 .0 blood glucose 97 mg/dL 65-110 urea nitrogen, blood 8 mg/dL 7-18 creatinine, serum 1.30 mg/dL 0.60-1.30 alanine aminotransferase (SGPT), serum 36 U/L 12-78 aspartate aminotransferase (SGOT), serum 46 U/L 15-37 alkaline phosphatase, serum 127 U/L 50-136 calcium, serum 7.7 mg/dL 8.5-10.1 bilirubin, serum, total 0.30 mg/dL 0.00-1.00 sodium, serum 139 mmol/L 335-609 6140/01/21 potassium, serum 3.4 mmol/L 3.5-5.2 chloride, serum 99 mmol/L 98-107 carbon dioxide, venous blood 32.2 mmol/L 21.0-32 .0 blood glucose 113 mg/dL 65-110 urea nitrogen, blood 21 mg/dL 7-18 creatinine, serum 1.40 mg/dL 0.60-1.30 alanine aminotransferase (SGPT), serum 24 U/L 12-78 aspartate aminotransferase (SGOT), serum 24 U/L 15-37 alkaline phosphatase, serum 138 U/L 50-136 calcium, serum 9.1 mg/dL 8.5-10.1 bilirubin, serum, total 0.40 mg/dL 0.00-1.00 sodium, serum 138 mmol/L 228-868 0191/01/28 potassium, serum 3.2 mmol/L 3.5-5.2 chloride, serum 97 mmol/L 98-107 carbon dioxide, venous blood 27.8 mmol/L 21.0-32 .0 blood glucose 97 mg/dL 65-110 urea nitrogen, blood 16 mg/dL 7-18 creatinine, serum 1.30 mg/dL 0.60-1.30 alanine aminotransferase (SGPT), serum 13 U/L - aspartate aminotransferase (SGOT), serum 16 U/L 15-37 alkaline phosphatase, serum 128 U/L 50-136 calcium, serum 9.3 mg/dL 8.5-10.1 bilirubin, serum, total 0.40 mg/dL 0.00-1.00 sodium, serum 140 mmol/L 974-525 8498/02/04 potassium, serum 3.6 mmol/L 3.5-5.2 chloride, serum 100 mmol/L 98-107 carbon dioxide, venous blood 32.9 mmol/L 21.0-32 .0 blood glucose 93 mg/dL 65-110 urea nitrogen, blood 15 mg/dL 7-18 creatinine, serum 1.00 mg/dL 0.60-1.30 alanine aminotransferase (SGPT), serum 14 U/L -78 aspartate aminotransferase (SGOT), serum 17 U/L 15-37 alkaline phosphatase, serum 118 U/L 50-136 calcium, serum 9.1 mg/dL 8.5-10.1 bilirubin, serum, total 0.70 mg/dL 0.00-1.00 sodium, serum 142 mmol/L 465-237 0262/01/03 potassium, serum 3.4 mmol/L 3.5-5.2 chloride, serum 101 mmol/L 98-107 carbon dioxide, venous blood 31.9 mmol/L 21.0-32 .0 blood glucose 98 mg/dL 65-110 urea nitrogen, blood 23 mg/dL 7-18 creatinine, serum 1.60 mg/dL 0.60-1.30 alanine aminotransferase (SGPT), serum 17 U/L -78 aspartate aminotransferase (SGOT), serum 21 U/L 15-37 alkaline phosphatase, serum 163 U/L 50-136 calcium, serum 8.5 mg/dL 8.5-10.1 bilirubin, serum, total 0.50 mg/dL 0.00-1.00 sodium, serum 140 mmol/L 418-210 8715/01/06 potassium, serum 3.4 mmol/L 3.5-5.2 chloride, serum 101 mmol/L 98-107 carbon dioxide, venous blood 30.4 mmol/L 21.0-32 .0 blood glucose 112 mg/dL 65-110 urea nitrogen, blood 21 mg/dL 7-18 creatinine, serum 1.40 mg/dL 0.60-1.30 alanine aminotransferase (SGPT), serum 16 U/L -78 aspartate aminotransferase (SGOT), serum 24 U/L 15-37 alkaline phosphatase, serum 147 U/L 50-136 calcium, serum 8.7 mg/dL 8.5-10.1 bilirubin, serum, total 0.40 mg/dL 0.00-1.00 sodium, serum 136 mmol/L 116-436 8978/04/03 sodium, serum 136 mmol/L 032-177 5989/04/03 potassium, serum 3.7 mmol/L 3.5-5.2 chloride, serum [...] 0.40 mg/dL 0.00-1.00 sodium, serum 136 mmol/L 849-565 0229/02/11 potassium, serum 3.1 mmol/L 3.5-5.2 chloride, serum 97 mmol/L 98-107 carbon dioxide, venous blood 31.8 mmol/L 21.0-32 .0 blood glucose 99 mg/dL 65-110 urea nitrogen, blood 20 mg/dL 7-18 creatinine, serum 0.90 mg/dL 0.60-1.30 alanine aminotransferase (SGPT), serum 11 U/L - aspartate aminotransferase (SGOT), serum 15 U/L 15-37 alkaline phosphatase, serum 106 U/L 50-136 calcium, serum 8.7 mg/dL 8.5-10.1 bilirubin, serum, total 0.50 mg/dL 0.00-1.00 sodium, serum 139 mmol/L 214-492 6350/02/18 potassium, serum 3.6 mmol/L 3.5-5.2 chloride, serum 98 mmol/L 98-107 carbon dioxide, venous blood 33.2 mmol/L 21.0-32 .0 blood glucose 93 mg/dL 65-110 urea nitrogen, blood 13 mg/dL 7-18 creatinine, serum 1.00 mg/dL 0.60-1.30 alanine aminotransferase (SGPT), serum 12 U/L 12-78 aspartate aminotransferase (SGOT), serum 16 U/L 15-37 alkaline phosphatase, serum 97 U/L 50-136 calcium, serum 8.6 mg/dL 8.5-10.1 bilirubin, serum, total 0.50 mg/dL 0.00-1.00 Lab Report: CBC W/DIFF, Comp. Metabolic Panel - Hematology leukocyte count, blood 5.6 10^3/MM^3 [...] 11 .6-14.8 platelet count 246 10^3/MM^3 10*3/mm3 054-647 0223/02/18 leukocyte count, blood 4.0 10^3/MM^3 10*3/mm3 4.6-10.2 neutrophils as percent of blood leukocytes 72.1 % 42.2-75.2 monocytes as percent of blood leukocytes 8.3 % 1.7-9.3 lymphocytes as percent of blood leukocytes 17.8 % 20.5-51.1 erythrocyte (RBC) count 2.83 10^6/MM^3 10*6/mm3 4.04-5.4 8 hemoglobin, blood 9.3 g/dL 12.0-16.0 hematocrit, blood 28.4 % 36.0-46.0 mean corpuscular volume, RBC 100 fL 80-97 mean corpuscular hemoglobin, RBC 32.8 pg 27. 0-31.2 mean corpuscular hemoglobin concentration, RBC 32.7 G/DL % 31.8-35.4 red blood cell distribution width 21.5 % 11 .6-14.8 platelet count 134 10^3/MM^3 10*3/mm3 424-039 3226/10/01 erythrocyte (RBC) count 3.96 10^6/MM^3 10*6/mm3 4.04-5.4 8 lymphocytes as percent of blood leukocytes 14.1 % 20.5-51.1 monocytes as percent of blood leukocytes 6.1 % 1.7-9.3 neutrophils as percent of blood leukocytes 76.0 % 42.2-75.2 leukocyte count, blood 8.3 10^3/MM^3 10*3/mm3 4.6-10.2 leukocyte count, blood 8.1 10^3/MM^3 10*3/mm3 4.6-10.2 neutrophils as percent of blood leukocytes 76.2 % 42.2-75.2 monocytes as percent of blood leukocytes 8.9 % 1.7-9.3 lymphocytes as percent of blood leukocytes 12.9 % 20.5-51.1 erythrocyte (RBC) count 2.37 10^6/MM^3 10*6/mm3 4.04-5.4 8 hemoglobin, blood 8.1 g/dL 12.0-16.0 hematocrit, blood 25.1 % 36.0-46.0 mean corpuscular volume, RBC 106 fL 80-97 mean corpuscular hemoglobin, RBC 34.3 pg 27. 0-31.2 mean corpuscular hemoglobin concentration, RBC 32.5 G/DL % 31.8-35.4 red blood cell distribution width 20.7 % 11 .6-14.8 platelet count 96 10^3/MM^3 10*3/mm3 051-653 2905/01/06 leukocyte count, blood 7.6 10^3/MM^3 10*3/mm3 4.6-10.2 neutrophils as percent of blood leukocytes 79.0 % 42.2-75.2 monocytes as percent of blood leukocytes 6.0 % 1.7-9.3 lymphocytes as percent of blood leukocytes 13.2 % 20.5-51.1 erythrocyte (RBC) count 2.22 10^6/MM^3 10*6/mm3 4.04-5.4 8 hemoglobin, blood 7.8 Verified By Repeat Analysis g/dL g/dL 12.0-16.0 hematocrit, blood 23.6 % 36.0-46.0 mean corpuscular volume, RBC 106 fL 80-97 mean corpuscular hemoglobin, RBC 34.9 pg 27. 0-31.2 mean corpuscular hemoglobin concentration, RBC 32.8 G/DL % 31.8-35.4 red blood cell distribution width 20.3 % 11 .6-14.8 platelet count 132 10^3/MM^3 10*3/mm3 706-401 2424/02/11 leukocyte count, blood 4.8 10^3/MM^3 10*3/mm3 4.6-10.2 neutrophils as percent of blood leukocytes 70.0 % 42.2-75.2 monocytes as percent of blood leukocytes 7.9 % 1.7-9.3 lymphocytes as percent of blood leukocytes 21.0 % 20.5-51.1 erythrocyte (RBC) count 2.91 10^6/MM^3 10*6/mm3 4.04-5.4 8 hemoglobin, blood 9.6 g/dL 12.0-16.0 hematocrit, blood 28.9 % 36.0-46.0 mean corpuscular volume, RBC 99 fL 80-97 mean corpuscular hemoglobin, RBC 32.9 pg 27. 0-31.2 mean corpuscular hemoglobin concentration, RBC 33.1 G/DL % 31.8-35.4 red blood cell distribution width 20.6 % 11 .6-14.8 platelet count 102 10^3/MM^3 10*3/mm3 785-264 1027/02/04 leukocyte count, blood 3.6 10^3/MM^3 10*3/mm3 4.6-10.2 neutrophils as percent of blood leukocytes 70.8 % 42.2-75.2 monocytes as percent of blood leukocytes 8.5 % 1.7-9.3 lymphocytes as percent of blood leukocytes 19.3 % 20.5-51.1 erythrocyte (RBC) count 3.57 10^6/MM^3 10*6/mm3 4.04-5.4 8 hemoglobin, blood 11.6 g/dL 12.0-16.0 hematocrit, blood 35.2 % 36.0-46.0 mean corpuscular volume, RBC 99 fL 80-97 mean corpuscular hemoglobin, RBC 32.5 pg 27. 0-31.2 mean corpuscular hemoglobin concentration, RBC 32.9 G/DL % 31.8-35.4 red blood cell distribution width 18.5 % 11 .6-14.8 platelet count 70 10^3/MM^3 10*3/mm3 055-779 2970/01/28 leukocyte count, blood 4.2 10^3/MM^3 10*3/mm3 4.6-10.2 neutrophils as percent of blood leukocytes 59.8 % 42.2-75.2 monocytes as percent of blood leukocytes 9.4 % 1.7-9.3 lymphocytes as percent of blood leukocytes 29.1 % 20.5-51.1 erythrocyte (RBC) count 2.24 10^6/MM^3 10*6/mm3 4.04-5.4 8 hemoglobin, blood 7.7 g/dL 12.0-16.0 hematocrit, blood 23.7 % 36.0-46.0 mean corpuscular volume, RBC 106 fL 80-97 mean corpuscular hemoglobin, RBC 34.6 pg 27. 0-31.2 mean corpuscular hemoglobin concentration, RBC 32.6 G/DL % 31.8-35.4 red blood cell distribution width 22.5 % 11 .6-14.8 platelet count 73 10^3/MM^3 10*3/mm3 204-041 7643/01/21 leukocyte count, blood 4.9 10^3/MM^3 10*3/mm3 4.6-10.2 neutrophils as percent of blood leukocytes 69.6 % 42.2-75.2 monocytes as percent of blood leukocytes 11.7 % 1.7-9.3 lymphocytes as percent of blood leukocytes 17.1 % 20.5-51.1 erythrocyte (RBC) count 2.40 10^6/MM^3 10*6/mm3 4.04-5.4 8 hemoglobin, blood 8.2 g/dL 12.0-16.0 hematocrit, blood 25.1 % 36.0-46.0 mean corpuscular volume, RBC 105 fL 80-97 mean corpuscular hemoglobin, RBC 34.4 pg 27. 0-31.2 mean corpuscular hemoglobin concentration, RBC 32.9 G/DL % 31.8-35.4 red blood cell distribution width 20.8 % 11 .6-14.8 platelet count 38 recounted 10^3/mm^3 10*3/mm3 683-118 9036/10/08 leukocyte count, blood 2.9 10^3/MM^3 10*3/mm3 4.6-10.2 neutrophils as percent of blood leukocytes 57.9 % 42.2-75.2 monocytes as percent of blood leukocytes 14.4 % 1.7-9.3 lymphocytes as percent of blood leukocytes 25.6 % 20.5-51.1 erythrocyte (RBC) count 3.55 10^6/MM^3 10*6/mm3 4.04-5.4 8 hemoglobin, blood 10.1 g/dL 12.0-16.0 hematocrit, blood 31.0 % 36.0-46.0 mean corpuscular volume, RBC 87 fL 80-97 mean corpuscular hemoglobin, RBC 28.5 pg 27. 0-31.2 mean corpuscular hemoglobin concentration, RBC 32.6 G/DL % 31.8-35.4 red blood cell distribution width 17.3 % 11 .6-14.8 platelet count 229 10^3/MM^3 10*3/mm3 449-386 4516/10/17 leukocyte count, blood 12.0 10^3/MM^3 10*3/mm3 4.6-10.2 neutrophils as percent of blood leukocytes 64.3 % 42.2-75.2 monocytes as percent of blood leukocytes 10.4 % 1.7-9.3 lymphocytes as percent of blood leukocytes 21.3 % 20.5-51.1 erythrocyte (RBC) count 4.18 10^6/MM^3 10*6/mm3 4.04-5.4 8 hemoglobin, blood 12.0 g/dL 12.0-16.0 hematocrit, blood 36.2 % 36.0-46.0 mean corpuscular volume, RBC 87 fL 80-97 mean corpuscular hemoglobin, RBC 28.7 pg 27. 0-31.2 mean corpuscular hemoglobin concentration, RBC 33.1 G/DL % 31.8-35.4 red blood cell distribution width 16.3 % 11 .6-14.8 platelet count 232 10^3/MM^3 10*3/mm3 532-276 2797/10/01 hemoglobin, blood 11.2 g/dL 12.0-16.0 hematocrit, blood 34.4 % 36.0-46.0 mean corpuscular volume, RBC 87 fL 80-97 mean corpuscular hemoglobin, RBC 28.3 pg 27. 0-31.2 mean corpuscular hemoglobin concentration, RBC 32.6 G/DL % 31.8-35.4 red blood cell distribution width 18.2 % 11 .6-14.8 platelet count 378 10^3/MM^3 10*3/mm3 396-066 9230/12/03 leukocyte count, blood 8.2 10^3/MM^3 10*3/mm3 4.6-10.2 neutrophils as percent of blood leukocytes 70.3 % 42.2-75.2 monocytes as percent of blood leukocytes 10.1 % 1.7-9.3 lymphocytes as percent of blood leukocytes 16.8 % 20.5-51.1 erythrocyte (RBC) count 3.55 10^6/MM^3 10*6/mm3 4.04-5.4 8 hemoglobin, blood 11.0 g/dL 12.0-16.0 hematocrit, blood 33.3 % 36.0-46.0 mean corpuscular volume, RBC 94 fL 80-97 mean corpuscular hemoglobin, RBC 31.1 pg 27. 0-31.2 mean corpuscular hemoglobin concentration, RBC 33.1 G/DL % 31.8-35.4 red blood cell distribution width 17.8 % 11 .6-14.8 platelet count 98 10^3/MM^3 10*3/mm3 142-424 Lab Report: CBC W/DIFF, Comp. Metabolic Panel, Manual Diff/Morphology - Chemistry sodium, serum 141 mmol/L 139-157 9838/11/25 potassium, serum 3.9 mmol/L 3.5-5.2 chloride, serum 100 mmol/L 98-107 carbon dioxide, venous blood 33.0 mmol/L 21.0-32 .0 blood glucose 101 mg/dL 65-110 urea nitrogen, blood 28 mg/dL 7-18 creatinine, serum 1.40 mg/dL 0.60-1.30 alanine aminotransferase (SGPT), serum 26 U/L 12-78 aspartate aminotransferase (SGOT), serum 27 U/L 15-37 alkaline phosphatase, serum 225 U/L 50-136 calcium, serum 8.6 mg/dL 8.5-10.1 bilirubin, serum, total 0.50 mg/dL 0.00-1.00 sodium, serum 137 mmol/L 608-824 5840/11/12 potassium, serum 3.2 mmol/L 3.5-5.2 chloride, serum 96 mmol/L 98-107 carbon dioxide, venous blood 34.5 mmol/L 21.0-32 .0 blood glucose 130 mg/dL 65-110 urea nitrogen, blood 32 mg/dL 7-18 creatinine, serum 1.30 mg/dL 0.60-1.30 alanine aminotransferase (SGPT), serum 40 U/L aspartate aminotransferase (SGOT), serum 45 U/L 15-37 alkaline phosphatase, serum 239 U/L 50-136 calcium, serum 8.7 mg/dL 8.5-10.1 bilirubin, serum, total 0.40 mg/dL 0.00-1.00 sodium, serum 140 mmol/L 841-631 1867/12/17 potassium, serum 3.3 mmol/L 3.5-5.2 chloride, serum 98 mmol/L 98-107 carbon dioxide, venous blood 33.1 mmol/L 21.0-32 .0 blood glucose 110 mg/dL 65-110 urea nitrogen, blood 20 mg/dL 7- creatinine, serum 1.80 mg/dL 0.60-1.30 alanine aminotransferase (SGPT), serum 25 U/L aspartate aminotransferase (SGOT), serum 27 U/L 15-37 alkaline phosphatase, serum 174 U/L 50-136 calcium, serum 8.2 mg/dL 8.5-10.1 bilirubin, serum, total 0.40 mg/dL 0.00-1.00 sodium, serum 138 mmol/L 934-268 3070/12/24 potassium, serum 3.7 mmol/L 3.5-5.2 chloride, serum 100 mmol/L 98-107 carbon dioxide, venous blood 27.8 mmol/L 21.0-32 .0 blood glucose 87 mg/dL 65-110 urea nitrogen, blood 25 mg/dL 7-18 creatinine, serum 1.30 mg/dL 0.60-1.30 alanine aminotransferase (SGPT), serum 24 U/L aspartate aminotransferase (SGOT), serum 39 U/L 15-37 alkaline phosphatase, serum 256 U/L 50-136 calcium, serum 8.6 mg/dL 8.5-10.1 bilirubin, serum, total 0.50 mg/dL 0.00-1.00 sodium, serum 138 mmol/L 495-918 9130/11/05 potassium, serum 3.9 mmol/L 3.5-5.2 chloride, serum 98 mmol/L 98-107 carbon dioxide, venous blood 36.2 mmol/L 21.0-32 .0 blood glucose 92 mg/dL 65-110 urea nitrogen, blood 23 mg/dL 7-18 creatinine, serum 1.60 mg/dL 0.60-1.30 alanine aminotransferase (SGPT), serum 29 U/L aspartate aminotransferase (SGOT), serum 26 U/L 15-37 alkaline phosphatase, serum 195 U/L 50-136 calcium, serum 8.3 mg/dL 8.5-10.1 bilirubin, serum, total 0.40 mg/dL 0.00-1.00 sodium, serum 135 mmol/L 788-302 7652/10/22 potassium, serum 3.0 mmol/L 3.5-5.2 chloride, serum 93 mmol/L 98-107 carbon dioxide, venous blood 31.6 mmol/L 21.0-32 .0 blood glucose 142 mg/dL 65-110 urea nitrogen, blood 15 mg/dL 7-18 creatinine, serum 1.80 mg/dL 0.60-1.30 alanine aminotransferase (SGPT), serum 45 U/L aspartate aminotransferase (SGOT), serum 48 U/L 15-37 alkaline phosphatase, serum 136 U/L 50-136 calcium, serum 8.3 mg/dL 8.5-10.1 bilirubin, serum, total 0.50 mg/dL 0.00-1.00 sodium, serum 128 mmol/L 205-321 3598/10/29 potassium, serum 2.6 mmol/L 3.5-5.2 chloride, serum 95 mmol/L 98-107 carbon dioxide, venous blood 35.6 mmol/L 21.0-32 .0 blood glucose 86 mg/dL 65-110 urea nitrogen, blood 25 mg/dL 7-18 creatinine, serum 1.50 mg/dL 0.60-1.30 alanine aminotransferase (SGPT), serum 34 U/L 12-78 aspartate aminotransferase (SGOT), serum 38 U/L 15-37 alkaline phosphatase, serum 242 U/L 50-136 calcium, serum 9.4 mg/dL 8.5-10.1 bilirubin, serum, total 0.50 mg/dL 0.00-1.00 sodium, serum 141 mmol/L 992-537 9056/01/14 potassium, serum 3.9 mmol/L 3.5-5.2 chloride, serum 101 mmol/L 98-107 carbon dioxide, venous blood 30.4 mmol/L 21.0-32 .0 blood glucose 109 mg/dL 65-110 urea nitrogen, blood 23 mg/dL 7-18 creatinine, serum 1.30 mg/dL 0.60-1.30 alanine aminotransferase (SGPT), serum 19 U/L 12-78 aspartate aminotransferase (SGOT), serum 28 U/L 15-37 alkaline phosphatase, serum 161 U/L 50-136 calcium, serum 8.1 mg/dL 8.5-10.1 bilirubin, serum, total 0.50 mg/dL 0.00-1.00 Lab Report: CBC W/DIFF, Comp. Metabolic Panel, Manual Diff/Morphology - Hematology leukocyte count, blood 6.2 10^3/MM^3 10*3/mm3 4.6-10.2 neutrophils as percent of blood leukocytes 73.5 % 42.2-75.2 monocytes as percent of blood leukocytes 12.5 % 1.7-9.3 lymphocytes as percent of blood leukocytes 12.4 % 20.5-51.1 erythrocyte (RBC) count 2.63 10^6/MM^3 10*6/mm3 4.04-5.4 8 hemoglobin, blood 9.0 g/dL 12.0-16.0 hematocrit, blood 27.0 % 36.0-46.0 mean corpuscular volume, RBC 103 fL 80-97 mean corpuscular hemoglobin, RBC 34.2 pg 27. 0-31.2 mean corpuscular hemoglobin concentration, RBC 33.3 G/DL % 31.8-35.4 red blood cell distribution width 18.3 % 11 .6-14.8 platelet count 22 10^3/MM^3 10*3/mm3 988-725 8000/10/22 leukocyte count, blood 14.7 10^3/MM^3 10*3/mm3 4.6-10.2 neutrophils as percent of blood leukocytes 80.9 % 42.2-75.2 monocytes as percent of blood leukocytes 7.1 % 1.7-9.3 lymphocytes as percent of blood leukocytes 10.4 % 20.5-51.1 erythrocyte (RBC) count 4.11 10^6/MM^3 10*6/mm3 4.04-5.4 8 hemoglobin, blood 11.7 g/dL 12.0-16.0 hematocrit, blood 35.9 % 36.0-46.0 mean corpuscular volume, RBC 87 fL 80-97 mean corpuscular hemoglobin, RBC 28.4 pg 27. 0-31.2 mean corpuscular hemoglobin concentration, RBC 32.5 G/DL % 31.8-35.4 red blood cell distribution width 17.5 % 11 .6-14.8 platelet count 428 10^3/MM^3 10*3/mm3 552-238 4251/10/29 leukocyte count, blood 26.3 10^3/MM^3 10*3/mm3 4.6-10.2 neutrophils as percent of blood leukocytes 76.8 % 42.2-75.2 monocytes as percent of blood leukocytes 13.4 % 1.7-9.3 lymphocytes as percent of blood leukocytes 7.0 % 20.5-51.1 erythrocyte (RBC) count 4.32 10^6/MM^3 10*6/mm3 4.04-5.4 8 hemoglobin, blood 12.3 g/dL 12.0-16.0 hematocrit, blood 37.8 % 36.0-46.0 mean corpuscular volume, RBC 88 fL 80-97 mean corpuscular hemoglobin, RBC 28.5 pg 27. 0-31.2 mean corpuscular hemoglobin concentration, RBC 32.6 G/DL % 31.8-35.4 red blood cell distribution width 17.3 % 11 .6-14.8 platelet count 268 10^3/MM^3 10*3/mm3 479-560 5111/11/12 leukocyte count, blood 12.1 10^3/MM^3 10*3/mm3 4.6-10.2 neutrophils as percent of blood leukocytes 86.3 % 42.2-75.2 monocytes as percent of blood leukocytes 5.2 % 1.7-9.3 lymphocytes as percent of blood leukocytes 6.4 % 20.5-51.1 erythrocyte (RBC) count 3.89 10^6/MM^3 10*6/mm3 4.04-5.4 8 hemoglobin, blood 11.2 g/dL 12.0-16.0 hematocrit, blood 34.3 % 36.0-46.0 mean corpuscular volume, RBC 88 fL 80-97 mean corpuscular hemoglobin, RBC 28.8 pg 27. 0-31.2 mean corpuscular hemoglobin concentration, RBC 32.6 G/DL % 31.8-35.4 red blood cell distribution width 18.2 % 11 .6-14.8 platelet count 157 10^3/MM^3 10*3/mm3 670-018 7037/11/05 leukocyte count, blood 16.4 10^3/MM^3 10*3/mm3 4.6-10.2 neutrophils as percent of blood leukocytes 75.9 % 42.2-75.2 monocytes as percent of blood leukocytes 8.4 % 1.7-9.3 lymphocytes as percent of blood leukocytes 12.6 % 20.5-51.1 erythrocyte (RBC) count 4.14 10^6/MM^3 10*6/mm3 4.04-5.4 8 hemoglobin, blood 12.0 g/dL 12.0-16.0 hematocrit, blood 36.8 % 36.0-46.0 mean corpuscular volume, RBC 89 fL 80-97 mean corpuscular hemoglobin, RBC 28.9 pg 27. 0-31.2 mean corpuscular hemoglobin concentration, RBC 32.5 G/DL % 31.8-35.4 red blood cell distribution width 17.1 % 11 .6-14.8 platelet count 215 10^3/MM^3 10*3/mm3 656-332 5644/12/24 leukocyte count, blood 14.0 10^3/MM^3 10*3/mm3 4.6-10.2 neutrophils as percent of blood leukocytes ----- % % 42.2-75.2 monocytes as percent of blood leukocytes 4.3 % 1.7-9.3 lymphocytes as percent of blood leukocytes 7.7 % 20.5-51.1 erythrocyte (RBC) count 2.72 10^6/MM^3 10*6/mm3 4.04-5.4 8 hemoglobin, blood 8.7 g/dL 12.0-16.0 hematocrit, blood 27.0 % 36.0-46.0 mean corpuscular volume, RBC 99 fL 80-97 mean corpuscular hemoglobin, RBC 32.0 pg 27. 0-31.2 mean corpuscular hemoglobin concentration, RBC 32.3 G/DL % 31.8-35.4 red blood cell distribution width 18.8 % 11 .6-14.8 platelet count 66 10^3/MM^3 10*3/mm3 456-761 8643/12/17 leukocyte count, blood 18.6 10^3/MM^3 10*3/mm3 4.6-10.2 neutrophils as percent of blood leukocytes 69.2 % 42.2-75.2 monocytes as percent of blood leukocytes 13.5 % 1.7-9.3 lymphocytes as percent of blood leukocytes 14.2 % 20.5-51.1 erythrocyte (RBC) count 2.78 10^6/MM^3 10*6/mm3 4.04-5.4 8 hemoglobin, blood 8.8 g/dL 12.0-16.0 hematocrit, blood 27.3 % 36.0-46.0 mean corpuscular volume, RBC 98 fL 80-97 mean corpuscular hemoglobin, RBC 31.8 pg 27. 0-31.2 mean corpuscular hemoglobin concentration, RBC 32.3 G/DL % 31.8-35.4 red blood cell distribution width 17.6 % 11 .6-14.8 platelet count 75 10^3/MM^3 10*3/mm3 683-616 5037/11/25 leukocyte count, blood 21.1 10^3/MM^3 10*3/mm3 4.6-10.2 neutrophils as percent of blood leukocytes 80.9 % 42.2-75.2 monocytes as percent of blood leukocytes 7.4 % 1.7-9.3 lymphocytes as percent of blood leukocytes 9.3 % 20.5-51.1 erythrocyte (RBC) count 2.23 10^6/MM^3 10*6/mm3 4.04-5.4 8 hemoglobin, blood 6.7 g/dL 12.0-16.0 hematocrit, blood 21.0 % 36.0-46.0 mean corpuscular volume, RBC 94 fL 80-97 mean corpuscular hemoglobin, RBC 30.0 pg 27. 0-31.2 mean corpuscular hemoglobin concentration, RBC 31.8 G/DL % 31.8-35.4 red blood cell distribution width 18.6 % 11 .6-14.8 platelet count 46 10^3/MM^3 10*3/mm3 142-424 Lab Report: CBC W/DIFF, Manual Diff/Morp hology - Hematology leukocyte count, blood 14.5 10^3/MM^3 10*3/mm3 4.6-10.2 neutrophils as percent of blood leukocytes 80.9 % 42.2-75.2 monocytes as percent of blood leukocytes 6.7 % 1.7-9.3 lymphocytes as percent of blood leukocytes 9.2 % 20.5-51.1 erythrocyte (RBC) count 3.75 10^6/MM^3 10*6/mm3 4.04-5.4 8 hemoglobin, blood 9.9 g/dL 12.0-16.0 hematocrit, blood 31.0 % 36.0-46.0 mean corpuscular volume, RBC 83 fL 80-97 mean corpuscular hemoglobin, RBC 26.3 pg 27. 0-31.2 mean corpuscular hemoglobin concentration, RBC 31.8 G/DL % 31.8-35.4 red blood cell distribution width 17.4 % 11 .6-14.8 platelet count 413 10^3/MM^3 10*3/mm3 046-915 7961/01/16 leukocyte count, blood 3.6 10^3/MM^3 10*3/mm3 4.6-10.2 neutrophils as percent of blood leukocytes 62.5 % 42.2-75.2 monocytes as percent of blood leukocytes 18.4 % 1.7-9.3 lymphocytes as percent of blood leukocytes 17.5 % 20.5-51.1 erythrocyte (RBC) count 2.47 10^6/MM^3 10*6/mm3 4.04-5.4 8 hemoglobin, blood 8.5 g/dL 12.0-16.0 hematocrit, blood 25.4 % 36.0-46.0 mean corpuscular volume, RBC 103 fL 80-97 mean corpuscular hemoglobin, RBC 34.6 pg 27. 0-31.2 mean corpuscular hemoglobin concentration, RBC 33.7 G/DL % 31.8-35.4 red blood cell distribution width 19.0 % 11 .6-14.8 platelet count 16 10^3/MM^3 10*3/mm3 142-424 Lab Report: CEA - Serology carcinoembryonic antigen 0.7 ng/mL carcinoembryonic antigen <0.5 ng/mL ng/mL carcinoembryonic antigen <0.5 ng/mL ng/mL Lab Report: Comp. Metabolic Panel - Chem istry sodium, serum 141 mmol/L 803-419 2793/11/19 potassium, serum 3.9 mmol/L 3.5-5.2 chloride, serum 101 mmol/L 98-107 carbon dioxide, venous blood 32.0 mmol/L 21.0-32 .0 blood glucose 109 mg/dL 65-110 urea nitrogen, blood 22 mg/dL 7-18 creatinine, serum 1.50 mg/dL 0.60-1.30 alanine aminotransferase (SGPT), serum 38 U/L - aspartate aminotransferase (SGOT), serum 25 U/L 15-37 alkaline phosphatase, serum 184 U/L 50-136 calcium, serum 9.0 mg/dL 8.5-10.1 bilirubin, serum, total 0.50 mg/dL 0.00-1.00 sodium, serum 142 mmol/L 189-008 5896/12/10 potassium, serum 3.9 mmol/L 3.5-5.2 chloride, serum 102 mmol/L 98-107 carbon dioxide, venous blood 32.9 mmol/L 21.0-32 .0 blood glucose 86 mg/dL 65-110 urea nitrogen, blood 26 mg/dL 7- creatinine, serum 1.30 mg/dL 0.60-1.30 alanine aminotransferase (SGPT), serum 25 U/L aspartate aminotransferase (SGOT), serum 30 U/L 15-37 alkaline phosphatase, serum 201 U/L 50-136 calcium, serum 8.5 mg/dL 8.5-10.1 bilirubin, serum, total 0.40 mg/dL 0.00-1.00 Lab Report: Comp. Metabolic Panel, CBC W /DIFF, Manual Diff/Morphology - Chemistry sodium, serum 142 mmol/L 886-371 2899/12/31 potassium, serum 3.6 mmol/L 3.5-5.2 chloride, serum 101 mmol/L 98-107 carbon dioxide, venous blood 30.0 mmol/L 21.0-32 .0 blood glucose 101 mg/dL 65-110 urea nitrogen, blood 36 mg/dL 7-18 creatinine, serum 2.20 mg/dL 0.60-1.30 alanine aminotransferase (SGPT), serum 19 U/L 12-78 aspartate aminotransferase (SGOT), serum 24 U/L 15-37 alkaline phosphatase, serum 173 U/L 50-136 calcium, serum 8.5 mg/dL 8.5-10.1 bilirubin, serum, total 0.40 mg/dL 0.00-1.00 Lab Report: Comp. Metabolic Panel, CBC W /DIFF, Manual Diff/Morphology - Hematology leukocyte count, blood 10.3 10^3/MM^3 10*3/mm3 4.6-10.2 neutrophils as percent of blood leukocytes 69.4 % 42.2-75.2 monocytes as percent of blood leukocytes 15.0 % 1.7-9.3 lymphocytes as percent of blood leukocytes 13.7 % 20.5-51.1 erythrocyte (RBC) count 2.39 10^6/MM^3 10*6/mm3 4.04-5.4 8 hemoglobin, blood 8.2 g/dL 12.0-16.0 hematocrit, blood 25.2 % 36.0-46.0 mean corpuscular volume, RBC 105 fL 80-97 mean corpuscular hemoglobin, RBC 34.2 pg 27. 0-31.2 mean corpuscular hemoglobin concentration, RBC 32.4 G/DL % 31.8-35.4 red blood cell distribution width 19.5 % 11 .6-14.8 platelet count 61 10^3/MM^3 10*3/mm3 142-424 Lab Report: Hemoglobin - Hematology hemoglobin, blood 11.2 g/dL 12.0-16.0 Lab Report: Potassium - Chemistry potassium, serum 3.8 mmol/L 3.5-5.2 Encounters Code Encounter Date Provider Facility CPT-98032 Level 3 New Patient 01:46:11 [employer] SCI[employer]IST Hope landers MD PhD [facility] Procedures Code Procedure Name Date Entry Date Standard Desc ription CPT-06018 Postop F/U Visit 15:47:49 CDT CPT-06351 Postop F/U Visit 15:21:02 CDT CPT-TCM Transitional Care Mgmt-High 07:52:27 CDT 20 20/06/01 CPT-39247 Venipuncture Draw Fee 13:51:18 CDT CPT-30622 Venipuncture Draw Fee 10:14:55 [employer] SCI[employer]IST CPT-78162 Venipuncture Draw Fee 13:39:45 [employer]IOR [employer]EARCH SCIENTIST CPT-OV Office Visit 15:11:22 [employer]IOR [employer] SCIENTIST CPT-75674 Venipuncture Draw Fee 09:20:49 S[employer]IOR [employer]EARCH SCIENTIST CPT-80376 Venipuncture Draw Fee 16:52:15 S[employer]IOR [employer]EARCH SCIENTIST CPT-97570 Venipuncture Draw Fee 10:37:24 S[employer]IOR [employer]EARCH SCIENTIST CPT-39485 Venipuncture Draw Fee 08:21:21 S[employer]IOR RESEARCH SCIENTIST CPT-80854 Venipuncture Draw Fee 08:30:20 SENIOR RESEARCH SCIENTIST CPT-96760 Venipuncture Draw Fee 14:53:21 SENIOR RESEARCH SCIENTIST CPT-20363 Venipuncture Draw Fee 09:40:56 S[employer]IOR [employer]EARCH SCIENTIST CPT-25236 Venipuncture Draw Fee 10:30:47 S[employer]IOR RESEARCH SCIENTIST CPT-48972 Venipuncture Draw Fee 10:46:17 S[employer]IOR RESEARCH SCIENTIST CPT-47714 Venipuncture Draw Fee 11:12:45 SENIOR RESEARCH SCIENTIST CPT-09333 Venipuncture Draw Fee 09:53:33 S[employer]IOR RESEARCH SCIENTIST CPT-03413 Venipuncture Draw Fee 11:53:51 S[employer]IOR [employer]EARCH SCIENTIST CPT-32689 Venipuncture Draw Fee 10:33:50 S[employer]IOR RESEARCH SCIENTIST CPT-50948 Venipuncture Draw Fee 10:05:01 S[employer]IOR [employer]EARCH SCIENTIST CPT-89375 Venipuncture Draw Fee 14:32:52 S[employer]IOR RESEARCH SCIENTIST CPT-60582 Venipuncture Draw Fee 09:46:13 S[employer]IOR RESEARCH SCIENTIST CPT-16251 Venipuncture Draw Fee 11:34:27 S[employer]IOR RESEARCH SCIENTIST CPT-31961 Venipuncture Draw Fee 13:17:16 S[employer]IOR RESEARCH SCIENTIST CPT-29769 Venipuncture Draw Fee 12:05:39 CDT CPT-51533 Venipuncture Draw Fee 12:49:12 CDT CPT-29841 Venipuncture Draw Fee 12:37:18 CDT CPT-26146 Venipuncture Draw Fee 10:57:11 CDT CPT-57410 Venipuncture Draw Fee 13:47:40 CDT CPT-32599 Venipuncture Draw Fee 10:02:17 CDT CPT-21467 TB Tubersol 17:32:32 CDT CPT-OV Office Visit 16:21:53 CDT CPT-OV Office Visit 15:49:22 CDT CPT-OV Office Visit 17:16:31 CDT CPT-OV Office Visit 10:43:31 CDT
--- OUTSIDE RECORDS SUMMARY | 2019-02-09 13:00 | XMS REPORT | Clinical Summary ---
Author Author Renaldo, Florecita Munoz Organization [facility] Address Unknown Phone Unavailable Allergies, Adverse Reactions, [...] PhD Hyperpotassemia GERD 530.81 Resolved Kylie Yokum MULTIPLE RESAW OPERATOR Esophageal reflux Health maintenance exam V70.0 Resolved Adolfo Yates MD Routine general medical examination at a health care facility Anemia 285.9 Resolved Kylie Holt MULTIPLE RESAW OPERATOR Anemia, unspecified Personal history of malignant neoplasm of large intestine V10.05 Active Adam Yates MD Personal history of malignant neoplasm of large intestine Hypomagnesemia 275.2 Resolved Kylie Holt MULTIPLE RESAW OPERATOR Disorders of magnesium metabolism Weakness 780.79 [...] Yates MD Functional diarrhea Osteoporosis 733.00 Active Hoep Benavidez MD PhD [...] Sebaceous cyst, scalp 706.2 Resolved Kylie Yokum MULTIPLE RESAW OPERATOR Sebaceous cyst Cervical lymphadenopathy, anterior, left 785.6 Resolv ed Kylie Yokum MULTIPLE RESAW OPERATOR Enlargement of lymph nodes Need for prophylactic vaccination and inoculation against in fluenza V04.81 Resolved Adam Yates MD Need for prophylactic vaccination and inoculation against influenza Preventive health care V70.0 Active Kylie Yokum MULTIPLE RESAW OPERATOR Routine general medical examination at a health care facility Thyroid nodule, left 241.0 Active Kylie Yokum A PRN Nontoxic uninodular goiter Screening mammogram V76.12 Active Kylie Yokum AP RN Other screening mammogram Mandy 706.2 Resolved Kylie Yokum MULTIPLE RESAW OPERATOR Sebaceous cyst Colon cancer, ascending 153.6 Resolved Kylie Yok um MULTIPLE RESAW OPERATOR Malignant neoplasm of ascending colon Foot pain, left 729.5 Active Sulema Sterlingf PRODUCT MARKETING ANALYST Pain in limb Splinter 919.6 Active Kylie Yokum MULTIPLE RESAW OPERATOR Superficial foreign body (splinter) of other, multiple, and unspecified sites, without major open wound and without mention of infection Rash 782.1 Active Kylie Yokum MULTIPLE RESAW OPERATOR R aurora and other nonspecific skin eruption Cyst 706.2 Active Kylie Yokum MULTIPLE RESAW OPERATOR S ebaceous cyst ABDOMINAL PAIN, RIGHT LOWER QUADRANT ICD-789.03 Inactive Kina Joshua MULTIPLE RESAW OPERATOR ADENOCARCINOMA, COLON, CECUM ICD-153.4 Dick Yates MD ABDOMINAL PAIN, GENERALIZED ICD-789.07 Inactive Hope Benavidez MD PhD FEVER UNSPECIFIED ICD-780.60 Inactive Hope cohn MD PhD UNSPECIFIED VENOUS INSUFFICIENCY ICD-459.81 [place] ctive Adam Yates MD ADENOCARCINOMA, ASCENDING COLON ICD-153.6 Inac tive Hope Benavidez MD PhD Hyperkalemia ICD-276.7 Inactive Hope Benavidez MD PhD GERD ICD-530.81 Inactive Kylieshubham Holt MULTIPLE RESAW OPERATOR 2015 Health maintenance exam ICD-V70.0 Bam aYtes MD Anemia ICD-285.9 Inactive Kylieshubham Holt MULTIPLE RESAW OPERATOR 07/24 Hypomagnesemia ICD-275.2 Inactive Kylie Holt MULTIPLE RESAW OPERATOR Weakness ICD-780.79 Inactive Hope Benavidez MD [...] Sebaceous cyst, scalp ICD-706.2 Inactive Tracy Holt MULTIPLE RESAW OPERATOR Cervical lymphadenopathy, anterior, left ICD-785.6 Inactive Kylie Lundum MULTIPLE RESAW OPERATOR Need for prophylactic vaccination and inoculation against in fluenza ICD-V04.81 Inactive Adam Yates MD Mandy ICD-706.2 Inactive Kylie Lundum MULTIPLE RESAW OPERATOR 07/20 Colon cancer, ascending ICD-153.6 Inactive Bravo Holt MULTIPLE RESAW OPERATOR Medication List Medication Instructions Start Date Stop Date Generic Name NDC Status Provider Patient Instruction VOLTAREN 1 % TRANSDERMAL GEL apply q 6-8 hour to left arm as needed for pain DICLOFENAC SODIUM 53432812483 Active Kylie Holt AYM Active COQ10 100 MG ORAL CAPSULE 1 daily COENZYME Q10 701198 14507 Active LETY Nation Active VITAMIN D3 2000 UNIT ORAL CAPSULE Melaleuca-One daily CHOLECALCIFEROL 73061694633 Active Kylie Holt APRN Active PROBIOTIC DAILY ORAL CAPSULE Take one daily PROBIO TIC PRODUCT 85844684653 Active Kylie Holt AMY Active IRON 325 (65 Fe) MG ORAL TABLET 1 every other day FERROUS SULFATE 58831414526 No Longer Active Kylie Holt AMY Active FLORANEX ORAL PACKET 1 pack three times daily, for bowel health LACTOBACILLUS 77579544435 No Longer Active Kylie Holt MULTIPLE RESAW OPERATOR Active LOMOTIL 2.5-0.025 MG ORAL TABLET 1 tab by mouth prn 23/10/23 DIPHENOXYLATE-ATROPINE 55989547222 No Longer Active Kylie Lundum MULTIPLE RESAW OPERATOR Active MAGNESIUM GLUCONATE 250 MG ORAL TABLET 1 tab tid 23/10/23 MAGNESIUM GLUCONATE 44413824187 No Longer Active Kylie Lundum MULTIPLE RESAW OPERATOR Active CYANOCOBALAMIN 1000 MCG/ML INJECTION SOLUTION 1 injection ev ruben 2 weeks CYANOCOBALAMIN 69195022447 No Longer Active Kylie Lund um MULTIPLE RESAW OPERATOR Active ATENOLOL 25 MG ORAL TABLET 1/2 pill by mouth daily, fo r headaches, blood pressure ATENOLOL 55745303611 Active Kylie Lundum MULTIPLE RESAW OPERATOR Active PROPRANOLOL HCL 80 MG ORAL TABLET 1 tab tue. and thur. PROPRANOLOL HCL 29987665534 No Longer Active Hope Benavidez MD PhD A ctive VITAMIN D3 4000 IU 1 tab 3 times daily VITAMIN D3 4000 IU No Longer Active Hope Benavidez MD PhD Active BACTRIM DS 800-160 MG ORAL TABLET 1 pill by mouth twice claudio y, for UTI SULFAMETHOXAZOLE-TRIMETHOPRIM 19199822987 No Longer Active Hope Benavidez MD PhD Active PROLIA 60 MG/ML SUBCUTANEOUS SOLUTION 1 shot every 6 months for osteoprosis DENOSUMAB 35094304886 Active Hope Benavidez MD PhD Active CALCIUM + D + K 750-500-40 MG-UNT-MCG ORAL TABLET 1 tab by m out twice daily CALCIUM-VITAMIN D-VITAMIN K 94063463020 Active Hope valdez MD PhD Active DAILY VALUE MULTIVITAMIN ORAL TABLET 1 tab by mouth twice daily 201 05/16/14 MULTIPLE VITAMIN 49449872748 Active Hope Benavidez MD PhD Acti ve FISH OIL 306 MG CAPS 1 tab by mouth three times daily OMEGA-3 FATTY ACIDS 55652050111 Active Hope Benavidez MD PhD Active LUTEIN 10 MG ORAL TABLET 1 tab daily LUTEIN 74805287 408 Active Hope Benavidez MD PhD Active TRIAMTERENE-HCTZ 37.5-25 MG ORAL TABLET 1 tab by mouth daily 10/22 TRIAMTERENE-HCTZ 15662820676 Active LETY Rossi Activ e CYCLOBENZAPRINE HCL 10 MG ORAL TABLET 1 tablet by mout h three times daily as needed for headaches CYCLOBENZAPRINE HCL 92272385780 No Longer Active Adam Yates MD Active OMEPRAZOLE 20 MG ORAL CAPSULE DELAYED RELEASE 1 tablet by [facility] daily for GERD OMEPRAZOLE 74066755153 No Longer Active Adam Yates MD Active ZOFRAN 8 MG ORAL TABLET 1 tab by mouth every 12 hours prn 4 ONDANSETRON HCL 97597640168 No Longer Active Adam Yates MD Active PHENADOZ 25 MG RECTAL SUPPOSITORY 1 every 4 hrs. PRN 2 PROMETHAZINE HCL 99577251817 No Longer Active Adam Yates MD A ctive POTASSIUM CHLORIDE 20 MEQ ORAL PACKET by mouth twice a day prn 2 POTASSIUM CHLORIDE 67021894357 No Longer Active Adam Carpenter MD Active PROMETHAZINE HCL 25 MG ORAL TABLET 1 Q. 4 hr. PRN PROMETHAZINE HCL 32499262826 No Longer Active Adam Yates MD Active INNOPRAN XL 120 MG ORAL CAPSULE EXTENDED RELEASE 24 HO UR Take one by mouth daily PROPRANOLOL HCL SR BEADS 73130696469 No Longer Active Adam Yates MD Active FLAGYL 500 MG ORAL TABLET 1 pill by mouth three times daily, for diarrhea METRONIDAZOLE 84284528820 No Longer Active Hope landers MD PhD Active DYAZIDE 37.5-25 MG ORAL CAPSULE 1 qd TRIA MTERENE-HCTZ 37574447039 No Longer Active Hope Benavidez MD PhD Active PROZAC 20 MG ORAL CAPSULE 1 q d FLUOXETINE HCL 62905944593 No Longer Active Hope Benavidez MD PhD Active SIMVASTATIN 40 MG ORAL TABLET 1 qd SIMVAS TATIN 26563887217 No Longer Active Adma Yates MD Active MELOXICAM 15 MG ORAL TABLET 1 qd MELOXICAM 64979855961 No Longer Active Adam Yates MD Active IMODIUM A-D 2 MG ORAL TABLET 2 onset at diarrhea and prn. LOPERAMIDE HCL 34787186744 Active Hope Benavidez MD PhD Active EXCEDRIN EXTRA STRENGTH 250-250-65 MG ORAL TABLET 1-2 q6h AK N headache [id number] 88037217387 Active Hope Benavidez MD PhD Active FLAGYL 500 MG ORAL TABLET 1 qid METRONIDAZOL E 19308019810 No Longer Active Adam Yates MD Active LEVAQUIN 750 MG ORAL TABLET 1 qd LEVOFLOXAC IN 53733871281 No Longer Active Adam Yates MD Active ADULT ASPIRIN LOW STRENGTH 81 MG ORAL TABLET DISINTEGRATING 1 qd ASPIRIN 14618967800 Active Hope Benavidez MD PhD Active LEVAQUIN 750 MG ORAL TABLET 1 qd LEVAQUIN 750 MG ORAL TABLET 489708 LEVOFLOXACIN Inactive FLAGYL 500 MG ORAL TABLET 1 qid FLAGYL 500 MG ORAL TABLET 365024 METRONIDAZOLE Inactive MELOXICAM 15 MG ORAL TABLET 1 qd MELOXICAM 15 MG ORAL TABLET 417314 MELOXICAM Inactive SIMVASTATIN 40 MG ORAL TABLET 1 qd SIMVASTATIN 40 MG ORAL TABLET 599020 SIMVASTATIN Inactive PROZAC 20 MG ORAL CAPSULE 1 q d PROZAC 20 MG ORAL CAPSULE 019560 FLUOXETINE HCL Inactive DYAZIDE 37.5-25 MG ORAL CAPSULE 1 qd 5 DYAZIDE 37.5-25 MG ORAL CAPSULE 439889 TRIAMTERENE-HCTZ Inactive INNOPRAN XL 120 MG ORAL CAPSULE EXTENDED RELEASE 24 HO UR Take one by mouth daily INNOPRAN XL 120 MG ORAL CAPSULE EXTENDED RELEASE 24 HOUR PROPRANOLOL HCL SR BEADS Inactive PROMETHAZINE HCL 25 MG ORAL TABLET 1 Q. 4 hr. PRN 2013 PROMETHAZINE HCL 25 MG ORAL TABLET 042732 PROMETHAZINE HCL Inactive POTASSIUM CHLORIDE 20 MEQ ORAL PACKET by mouth twice a day prn 2 POTASSIUM CHLORIDE 20 MEQ ORAL PACKET 5363614 POTASSIUM CHLORIDE Inactive PHENADOZ 25 MG RECTAL SUPPOSITORY 1 every 4 hrs. PRN 2 PHENADOZ 25 MG RECTAL SUPPOSITORY 649186 PROMETHAZINE HCL Inactive ZOFRAN 8 MG ORAL TABLET 1 tab by mouth every 12 hours prn 4 ZOFRAN 8 MG ORAL TABLET 284144 ONDANSETRON HCL Inactive OMEPRAZOLE 20 MG ORAL CAPSULE DELAYED RELEASE 1 tablet by mo uth daily for GERD OMEPRAZOLE 20 MG ORAL CAPSULE DELAYED RELEASE 19 8051 OMEPRAZOLE Inactive CYCLOBENZAPRINE HCL 10 MG ORAL TABLET 1 tablet by mout h three times daily as needed for headaches CYCLOBENZAPRINE HCL 10 MG ORAL TABLET 222253 CYCLOBENZAPRINE HCL Inactive VITAMIN D3 4000 IU 1 tab 3 times daily VITAMIN D3 4000 IU Inactive PROPRANOLOL HCL 80 MG ORAL TABLET 1 tab tue. and thur. PROPRANOLOL HCL 80 MG ORAL TABLET 850617 PROPRANOLOL HCL Inacti ve CYANOCOBALAMIN 1000 MCG/ML INJECTION SOLUTION 1 injection ev ruben 2 weeks CYANOCOBALAMIN 1000 MCG/ML INJECTION SOLUTION 30 9594 CYANOCOBALAMIN Inactive MAGNESIUM GLUCONATE 250 MG ORAL TABLET 1 tab tid 23/10/23 MAGNESIUM GLUCONATE 250 MG ORAL TABLET 886832 MAGNESIUM GLUCONATE Inactive LOMOTIL 2.5-0.025 MG ORAL TABLET 1 tab by mouth prn 20 23/10/23 LOMOTIL 2.5-0.025 MG ORAL TABLET 5577772 DIPHENOXYLATE-ATROPINE Inac tive FLORANEX ORAL PACKET 1 pack three times daily, for bowel health FLORANEX ORAL PACKET LACTOBACILLUS Inactive IRON 325 (65 Fe) MG ORAL TABLET 1 every other day 2015 IRON 325 (65 Fe) MG ORAL TABLET 622448 FERROUS SULFATE Inactive FLAGYL 500 MG ORAL TABLET 1 pill by mouth three times daily, for diarrhea FLAGYL 500 MG ORAL TABLET 653392 METRONIDAZOLE I nactive BACTRIM DS 800-160 MG ORAL TABLET 1 pill by mouth twice claudio y, for UTI BACTRIM DS 800-160 MG ORAL TABLET 988583 SULFAMETHOXAZOLE-TRIMETHOPRIM Inactive Advance Directives Directive Description Start [...] ... - Chemistry sodium, serum 138 mmol/L 902-515 7827/12/15 potassium, serum 4.0 mmol/L 3.5-5.2 chloride, serum [...] - Chem istry sodium, serum 142 mmol/L 014-583 8793/04/19 carbon dioxide, venous blood 30.2 mmol/L 21.0-32 [...] 0.00-1.00 Encounters Code Encounter Date Provider Facility CPT-71713 Level 3 Est. Patient 08:15:24 TRANSFER TABLE OPERATOR Kylie Lund [facility] CPT-83847 Level 2 Est. Patient 14:27:16 TRANSFER TABLE OPERATOR Kylie Lund [facility] CPT-73118 Level 3 Est. Patient 17:54:48 CDT Kylie Lund [facility] CPT-62516 Level 3 Est. Patient 16:26:30 CDT Kina blackmon [facility] CPT-24905 Level 3 New Patient 16:22:01 TRANSFER TABLE OPERATOR Adam Yates MD [facility] CPT-18778 Level 4 Est. Patient 17:00:48 CDT Kylieshubham Lund [facility] CPT-16953 Level 3 Est. Patient 13:15:54 CDT Kylie Lund [facility] CPT-25929 Level 3 Est. Patient 09:10:11 CDT Kylie Lund [facility] CPT-46970 Level 4 Est. Patient 12:08:30 TRANSFER TABLE OPERATOR Hope cohn MD [facility] CPT-33303 Level 4 Est. Patient 19:08:42 TRANSFER TABLE OPERATOR Hope cohn MD PhD [facility] CPT-02008 Level 4 Est. Patient 20:04:51 CDT Hope cohn MD PhD [facility] CPT-94601 Level 3 New Patient 01:46:11 TRANSFER TABLE OPERATOR Hope landers MD PhD [facility] Procedures Code Procedure Name Date Entry Date Standard Desc ription CPT-87500 Venipuncture Draw Fee 10:59:04 CDT CPT-74034 CMP - LAB USE ONLY 10:59:04 CDT CPT-83649 CBC with Diff - LAB USE ONLY 10:59:03 CDT 2 CPT-J0897 Prolia 60 mg 15:46:54 TRANSFER TABLE OPERATOR CPT-30979 Abx/Therapy Injection 15:46:54 TRANSFER TABLE OPERATOR CPT-34442 Microalbumin - LAB USE ONLY 09:41:32 TRANSFER TABLE OPERATOR 20 23/01/15 CPT-88724 Free T4 - LAB USE ONLY 09:41:32 TRANSFER TABLE OPERATOR CPT-94931 TSH - LAB USE ONLY 09:41:32 TRANSFER TABLE OPERATOR CPT-38195 BMP - LAB USE ONLY 09:41:32 TRANSFER TABLE OPERATOR CPT-79455 Venipuncture Draw Fee 09:41:32 TRANSFER TABLE OPERATOR CPT-36812 First Vx - Ix admin for Medicare patients 11:19:30 CDT CPT-36254 Fluzone High-Dose Intramuscular Suspension 12/07 11:19:30 CDT CPT-J0897 Prolia 60 mg 14:55:42 CDT CPT-05976 Abx/Therapy Injection 14:55:42 CDT CPT-22524 Bone Density - XRAY USE ONLY 10:27:12 CDT 2 CPT-G0439 Subsequent Annual Wellness Exam 17:54:53 CDT CPT-14977 Foot, left, comp min 3V - XRAY USE ONLY 12:22:49 CDT CPT-G0009 Administration of Pneumococcal Vaccine 3 12:18:00 CDT CPT-29615 Pneumovax 23 Injection Injectable 25 MCG /0.5ML 12:18:00 CDT CPT-J0897 Prolia 60 mg 14:14:16 TRANSFER TABLE OPERATOR CPT-11625 Abx/Therapy Injection 14:14:15 TRANSFER TABLE OPERATOR CPT-26878 Lipid - LAB USE ONLY 10:01:52 TRANSFER TABLE OPERATOR 2 CPT-16464 Calcium - LAB USE ONLY 10:01:51 TRANSFER TABLE OPERATOR CPT-61598 Venipuncture Draw Fee 10:01:51 TRANSFER TABLE OPERATOR CPT-LR Lesion Removal 16:22:01 TRANSFER TABLE OPERATOR CPT-44239 TSH - LAB USE ONLY 14:26:02 CDT CPT-96531 CMP - LAB USE ONLY 14:26:01 CDT CPT-43847 CBC with Diff - LAB USE ONLY 14:26:01 CDT 2 CPT-38698 Venipuncture Draw Fee 14:26:01 CDT CPT-29097 First Vx - Ix admin for Medicare patients 13:27:08 CDT CPT-67983 Fluzone High-Dose Intramuscular Suspension 11/26 13:27:08 CDT CPT-G0438 Initial Annual Wellness Exam 14:19:57 CD T CPT-G0009 Administration of Pneumococcal Vaccine 9 11:36:25 CDT CPT-05600 Prevnar 13 Intramuscular Suspension 1 1:36:25 CDT CPT-16044 Prevnar 13 Intramuscular Suspension 1 0:40:58 CDT CPT-J0897 Prolia 60 mg 10:37:16 CDT CPT-88718 Abx/Therapy Injection 10:37:16 CDT CPT-J0897 Prolia 60 mg 16:09:34 TRANSFER TABLE OPERATOR CPT-J0897 Prolia 60 mg 11:10:35 TRANSFER TABLE OPERATOR CPT-29540 Abx/Therapy Injection 11:10:35 TRANSFER TABLE OPERATOR CPT-000 Give Appropriate Flu Vaccine 17:01:15 TRANSFER TABLE OPERATOR 2 CPT-31977 Fluzone High Dose (65+) 15:03:08 TRANSFER TABLE OPERATOR 02/15 CPT-92939 Immunization Single Admin 15:03:08 TRANSFER TABLE OPERATOR 2014 CPT-OV Office Visit 15:58:06 CDT CPT-J0897 Prolia 60 mg 08:45:38 CDT CPT-89630 Abx/Therapy Injection 08:45:38 CDT CPT-J3420 Vitamin B12 1000mcg (Cyanocobalamin) 09:26:20 TRANSFER TABLE OPERATOR CPT-33805 Abx/Therapy Injection 09:26:20 TRANSFER TABLE OPERATOR CPT-J3420 Vitamin B12 1000mcg (Cyanocobalamin) 09:44:40 TRANSFER TABLE OPERATOR CPT-40965 Abx/Therapy Injection 09:44:40 TRANSFER TABLE OPERATOR CPT-J3420 Vitamin B12 1000mcg (Cyanocobalamin) 09:15:54 TRANSFER TABLE OPERATOR CPT-88216 Abx/Therapy Injection 09:15:54 TRANSFER TABLE OPERATOR CPT-J3420 Vitamin B12 1000mcg (Cyanocobalamin) 09:46:44 TRANSFER TABLE OPERATOR CPT-24800 Abx/Therapy Injection 09:46:44 TRANSFER TABLE OPERATOR CPT-J3420 Vitamin B12 1000mcg (Cyanocobalamin) 09:47:34 TRANSFER TABLE OPERATOR CPT-21718 Abx/Therapy Injection 09:47:34 TRANSFER TABLE OPERATOR CPT-J3420 Vitamin B12 1000mcg (Cyanocobalamin) 14:35:50 TRANSFER TABLE OPERATOR CPT-J3420 Vitamin B12 1000mcg (Cyanocobalamin) 09:25:05 TRANSFER TABLE OPERATOR CPT-12907 Abx/Therapy Injection 09:25:05 TRANSFER TABLE OPERATOR CPT-G0008 Administration of Influenza Virus Vaccine 13:36:47 CDT CPT-47790 Fluzone High-Dose Intramuscular Suspension 11/15 13:36:47 CDT CPT-J0897 Prolia 60 mg 08:50:41 CDT CPT-10786 Abx/Therapy Injection 08:50:41 CDT CPT-57396 Bone Density 12:06:12 CDT CPT-21318 Bone Density 08:54:40 CDT CPT-OV Office Visit 15:37:02 CDT CPT-10022 Postop F/U Visit 15:47:49 CDT CPT-10331 Postop F/U Visit 15:21:02 CDT CPT-[facility] Transitional Care Mgmt-High 07:52:27 CDT 20 20/06/01 CPT-02399 Venipuncture Draw Fee 13:51:18 CDT CPT-49859 Venipuncture Draw Fee 10:14:55 TRANSFER TABLE OPERATOR 2014/02/ 18 CPT-47462 Venipuncture Draw Fee 13:39:45 TRANSFER TABLE OPERATOR CPT-OV Office Visit 15:11:22 TRANSFER TABLE OPERATOR CPT-93118 Venipuncture Draw Fee 09:20:49 TRANSFER TABLE OPERATOR CPT-81595 Venipuncture Draw Fee 16:52:15 TRANSFER TABLE OPERATOR CPT-26665 Venipuncture Draw Fee 10:37:24 TRANSFER TABLE OPERATOR CPT-86035 Venipuncture Draw Fee 08:21:21 TRANSFER TABLE OPERATOR CPT-11481 Venipuncture Draw Fee 08:30:20 TRANSFER TABLE OPERATOR CPT-55204 Venipuncture Draw Fee 14:53:21 TRANSFER TABLE OPERATOR CPT-17628 Venipuncture Draw Fee 09:40:56 TRANSFER TABLE OPERATOR CPT-90699 Venipuncture Draw Fee 10:30:47 TRANSFER TABLE OPERATOR CPT-45945 Venipuncture Draw Fee 10:46:17 TRANSFER TABLE OPERATOR CPT-68186 Venipuncture Draw Fee 11:12:45 TRANSFER TABLE OPERATOR CPT-87653 Venipuncture Draw Fee 09:53:33 TRANSFER TABLE OPERATOR CPT-52721 Venipuncture Draw Fee 11:53:51 TRANSFER TABLE OPERATOR CPT-27004 Venipuncture Draw Fee 10:33:50 TRANSFER TABLE OPERATOR CPT-98395 Venipuncture Draw Fee 10:05:01 TRANSFER TABLE OPERATOR CPT-38339 Venipuncture Draw Fee 14:32:52 TRANSFER TABLE OPERATOR CPT-63353 Venipuncture Draw Fee 09:46:13 TRANSFER TABLE OPERATOR CPT-32504 Venipuncture Draw Fee 11:34:27 TRANSFER TABLE OPERATOR CPT-12837 Venipuncture Draw Fee 13:17:16 TRANSFER TABLE OPERATOR CPT-72301 Venipuncture Draw Fee 12:05:39 CDT CPT-24806 Venipuncture Draw Fee 12:49:12 CDT CPT-84439 Venipuncture Draw Fee 12:37:18 CDT CPT-98011 Venipuncture Draw Fee 10:57:11 CDT CPT-46433 Venipuncture Draw Fee 13:47:40 CDT CPT-89398 Venipuncture Draw Fee 10:02:17 CDT CPT-94530 TB Tubersol 17:32:32 CDT CPT-OV Office Visit 16:21:53 CDT CPT-OV Office Visit 15:49:22 CDT CPT-OV Office Visit 17:16:31 CDT CPT-OV Office Visit 10:43:31 CDT
--- OUTSIDE RECORDS SUMMARY | 2019-02-09 13:01 | XMS REPORT ---
Author Author [facility] Medic al YUDITH Rivera Organization [facility] Address [address] [place], [place] [id number] Phone [phone] Care Team Providers Care Beef Pusher Name Role Phone OSITO TAVERAS MD PP [phone] Summary purpose TRANSITION OF CARE AUTO GENERATION Chief Complaint and Reason for Visit Admit Diagnosis 1 OTHER POSTOP INFECTION Problem list No authorized problems tracked for continuity of care are available for this vis it. Encounters No authorized problems tracked for encounter diagnoses are available for this vi sit. Medications No home medications recorded for this patient visit Allergies, adverse reactions, alerts Allergen Category Ingredient Status Reaction Severity Onset No Known Drug Allergies No known drug allergies No Known Drug Al lergies Confirmed or Verified plastic tape Miscellaneous Allergy plastic tape Confirmed or Verified Immunizations No immunizations recorded for this patient visit Relevant diagnostic tests and/or laboratory data RESULTS Chemistry [id number]:17:00 Result Normal Range Units Magnesium 1.7 1.7-2.8 mg/dl :25:00 Result Normal Range Units Magnesium L 1.6 1.7-2.8 mg/dl 97-11-028261:05:00 Result Normal Range Units Magnesium 1.7 1.7-2.8 mg/dl :17:00 Result Normal Range Units Magnesium L 1.6 1.7-2.8 mg/dl :05:00 Result Normal Range Units Magnesium H 3.4 1.7-2.8 mg/dl :17:00 Result Normal Range Units Magnesium H 3.6 1.7-2.8 mg/dl :53:00 Result Normal Range Units Magnesium 1.8 1.7-2.8 mg/dl :25:00 Result Normal Range Units Magnesium L 1.5 1.7-2.8 mg/dl :17:00 Result Normal Range Units Magnesium 1.8 1.7-2.8 mg/dl :30:00 Result Normal Range Units Magnesium 1.8 1.7-2.8 mg/dl Reference Lab ([facility]) 82-52-810624:55:00 Result Normal Range Units Vit D 25 OH Total 33 30-100 ng /mL 25-OHD3 indicates both endogenous produc tion and supplementation. 25-OHD2 is an indicator of exogenous sources, such as diet or supplementation. Therapy is based on measurement of Total 25-OHD, with levels <20 ng/mL indicative of Vitamin D deficiency, while levels between 20 ng/m L and 30 ng/mL suggest insufficiency. Optimal levels are > or = 30 ng/mL. Vit D 25 OH D3 33 See Below ng/mL Reference Range: Not established Vit D 25 OH D2 < 4 See Below ng/mL Reference Range: Not established TEST PERFORMED AT: [facility] [address] [address] MIC VARGAS MD,AP Vit D 25 OH D2 27 18-72 pg/mL Vit D 3125 27 pg/mL Vit D 2125 < 8 pg/mL Vitamin D2, 1,25 (OH)2: Reference ranges are established for total 1,25-dihydroxy vitamin D. Values for subcomponents D2 (derived from plant or fungal sources) a nd D3 (derived from human or animal sources) are provided for informational purposes only. This test(s) was developed and its performance characteristics have been determined by [facility], [place], [place]. Performance characteristic s refer to the analytical performance of the test. TEST PERFORMED AT: [facility] [address] [place] [address] MIC VARGAS MD,FCAP History of procedures No procedures recorded for this patient visit. Functional status Functional Status Finding Observation Time Hearing Prob Loc none 83-36-439424:10 Vision Problems no 13-82-990398:10 Ambulation Asst Dev none 60-58-476774:10 Bathing Assistance none :10 Eating Assistance none 79-82-201277:10 Dressing Assistance none 44-21-244099:10 Toileting Assistance none 21-97-176639:10 Transfer Assistance none 68-53-217198:10 Decline Slf Care/Mob no 99-15-510002:10 Phys Cond Stable yes 84-99-233933:10 Cognitive Status Finding Observation Time Oriented To Date 5 Yes 91-86-869311:[address] 5 Yes 04-80-309448:10 Name 3 Objects 3 Yes 56-15-967890:10 Name Object in Rm 2 Yes 80-03-826379:10 Recall 3 Objects 3 Yes 07-60-604746:10 Repeats a Phrase 1 Yes 18-14-738173:10 Follows Verbal Direc 3 Yes 90-92-720071:10 Follows Written Dire 1 Yes 08-02-001056:10 Write a Sentance 1 Yes 99-78-798285:10 Draw an Object 1 Yes 70-34-500466:10 Mini Mental Total 25 points 19-52-506947:10 Less than 20 Phys not applicable 01-51-868023:10 Learning Ability comprehends well 63-91-458428:10 Neurological no 96-68-125808:10 Psychological no 62-63-132034:10 Physical no 44-36-120218:10 Hearing no 43-86-781444:10 Concert Pianist Needed no 21-99-524137:10 Sign Language no 31-58-753121:10 Emotional no 12-07-320170:10 Vision no 25-14-932869:10 Laguage no 84-24-446685:10 Financial no 57-02-008147:10 Vital signs Type Value Date Respiration Rate 18breaths per minute 29-19-782658: 55 Pulse 65beats per minute 99-46-141470:55 Oxygen Saturation 97% 33-90-378487:55 BP Systolic 117mmHg 34-11-185480:55 BP Diastolic 50mmHg 38-89-250811:55 Temperature 97.6F 27-30-474206:55 Height 63inches 26-99-479435:10 Weight 120LB 48-73-924718:10 Social history Type Value Smoking Status NEVER SMOKER Treatment Plan No treatment plan text is available for this visit. Hospital discharge instructions Valuables no
--- OUTSIDE RECORDS SUMMARY | 2019-02-09 13:01 | XMS REPORT | Clinical Summary ---
Author Author Renaldo, Florecita Munoz Organization [facility] Address Unknown Phone Allergies, Adverse Reactions, [...] of magnesium metabolism Weakness 780.79 Active Hope Benaivdez MD PhD Other malaise and fatigue Aftercare [...] 1 tab 3x aday M AGNESIUM GLUCONATE 33068995106 Active Adam Yates MD Active PROZAC 20 MG CAPS 1 q d FLUOXETINE HCL 40766 358474 No Longer Active Hope Benavidez MD PhD Active INNOPRAN XL 120 MG [id number] Take one by mouth daily PROPRANOLOL HCL SR BEADS 29391883059 Active Hope Benavidez MD PhD Active POTASSIUM CHLORIDE 20 MEQ PACK by mouth twice a day prn POTASSIUM CHLORIDE 60793796793 Active Adam Yates MD Activ e CYCLOBENZAPRINE HCL 10 MG TABS 1 tablet by mouth three times daily as needed for headaches CYCLOBENZAPRINE HCL 18233441961 Active Selena Yates MD Active SIMVASTATIN 40 MG TABS 1 qd SIMVASTATIN 004 32860046 No Longer Active Adam Yates MD Active MELOXICAM 15 MG TABS 1 qd MELOXICAM 9300625 6232 No Longer Active Adam Yates MD Active ATENOLOL 50 MG TABS 1/2 tab q other day ATENOLOL 82395465596 Active Hope Benavidez MD PhD Active OMEPRAZOLE 20 MG CPDR 1 tablet by mouth daily for GERD OMEPRAZOLE 88508116714 Active Hope Benavidez MD PhD Active IMODIUM A-D 2 MG TABS 2 onset at diarrhea and prn. LOPERAMIDE HCL 90225171415 Active Hope Benavidez MD PhD Active PHENADOZ 25 MG SUPP 1 every 4 hrs. PRN PROMETHAZINE HCL 37233979307 Active Hope Benavidez MD PhD Active PROMETHAZINE HCL 25 MG TABS 1 Q. 4 hr. PRN PROMETH AZINE HCL 32275052332 Active Hope Benavidez MD PhD Active EXCEDRIN EXTRA STRENGTH 250-250-65 MG TABS 1-2 q6h PRN headache 201 04/16/21 TBAYITK-YPOSHOZXJRRAY-GEIZEKCP 27432116052 Active Hope Benavidez MD PhD Active ZOFRAN 4 MG TABS 1 q 6 hr prn ONDANSETRON HCL 4032281 7002 Active Fay Alberts Active FLAGYL 500 MG TABS 1 qid METRONIDAZOLE 81700 272570 No Longer Active Adam Yates MD Active LEVAQUIN 750 MG TABS 1 qd LEVOFLOXACIN 5486 9216521 No Longer Active Adam Yates MD Active DYAZIDE 37.5-25 MG CAPS 1 qd TRIAMTERENE-HCTZ 5886 3630521 Active Hope Benavidez MD PhD Active ADULT ASPIRIN LOW STRENGTH 81 MG TBDP 1 qd A SPIRIN 34515273399 Active Hope Benavidez MD PhD Active LEVAQUIN 750 MG TABS 1 qd LEVAQUIN 750 MG T ABS 103255 LEVOFLOXACIN Inactive FLAGYL 500 MG TABS 1 qid FLAGYL 500 MG TABS 103041 METRONIDAZOLE Inactive MELOXICAM 15 MG TABS 1 qd MELOXICAM 15 MG T ABS 609726 MELOXICAM Inactive SIMVASTATIN 40 MG TABS 1 qd SIMVASTATIN 40 MG TABS 442945 SIMVASTATIN Inactive PROZAC 20 MG CAPS 1 [...] - Chem istry sodium, serum 137 mmol/L 461-101 5148/11/01 potassium, serum 3.7 mmol/L 3.5-5.2 chloride, serum 100 mmol/L 98-107 carbon dioxide, venous blood 31.8 mmol/L 21.0-32 .0 blood glucose 98 mg/dL 65-110 calcium, serum 8.6 mg/dL 8.5-10.1 urea nitrogen, blood 23 mg/dL 7-18 creatinine, serum 1.50 mg/dL 0.60-1.30 sodium, serum 136 mmol/L 126-968 6387/05/02 potassium, serum 4.1 mmol/L 3.5-5.2 chloride, serum [...] 11 .6-14.8 platelet count 133 10^3/MM^3 10*3/mm3 763-465 9159/01/17 leukocyte count, blood 3.1 10^3/MM^3 10*3/mm3 4.6-10.2 [...] 11 .6-14.8 platelet count 22 10^3/MM^3 10*3/mm3 301-407 2027/11/19 leukocyte count, blood 10.4 10^3/MM^3 10*3/mm3 4.6-10.2 [...] Verified By Repeat Analysis 10^3/mm ^3 10*3/mm3 814-603 5843/12/10 leukocyte count, blood 7.8 10^3/MM^3 10*3/mm3 4.6-10.2 [...] Panel - Chemistry sodium, serum 139 mmol/L 649-892 4473/12/03 potassium, serum 3.7 mmol/L 3.5-5.2 chloride, serum [...] 0.40 mg/dL 0.00-1.00 sodium, serum 137 mmol/L 230-096 9994/10/01 potassium, serum 3.5 mmol/L 3.5-5.2 chloride, serum [...] serum, total 0.60 mg/dL 0.00-1.00 sodium, serum 136 mmol/L 762-072 2829/10/08 potassium, serum 3.1 mmol/L 3.5-5.2 chloride, serum [...] 0.60 mg/dL 0.00-1.00 sodium, serum 139 mmol/L 671-509 3357/10/17 potassium, serum 3.1 mmol/L 3.5-5.2 chloride, serum [...] 0.30 mg/dL 0.00-1.00 sodium, serum 139 mmol/L 683-737 1835/01/21 potassium, serum 3.4 mmol/L 3.5-5.2 chloride, serum 99 mmol/L 98-107 carbon dioxide, venous blood 32.2 mmol/L 21.0-32 .0 blood glucose 113 mg/dL 65-110 urea nitrogen, blood 21 mg/dL 7-18 creatinine, serum 1.40 mg/dL 0.60-1.30 alanine aminotransferase (SGPT), serum 24 U/L - aspartate aminotransferase (SGOT), serum 24 U/L 15-37 alkaline phosphatase, serum 138 U/L 50-136 calcium, serum 9.1 mg/dL 8.5-10.1 bilirubin, serum, total 0.40 mg/dL 0.00-1.00 sodium, serum 138 mmol/L 345-284 6722/01/28 potassium, serum 3.2 mmol/L 3.5-5.2 chloride, serum 97 mmol/L 98-107 carbon dioxide, venous blood 27.8 mmol/L 21.0-32 .0 blood glucose 97 mg/dL 65-110 urea nitrogen, blood 16 mg/dL 7- creatinine, serum 1.30 mg/dL 0.60-1.30 alanine aminotransferase (SGPT), serum 13 U/L aspartate aminotransferase (SGOT), serum 16 U/L 15-37 alkaline phosphatase, serum 128 U/L 50-136 calcium, serum 9.3 mg/dL 8.5-10.1 bilirubin, serum, total 0.40 mg/dL 0.00-1.00 sodium, serum 140 mmol/L 284-527 8913/02/04 potassium, serum 3.6 mmol/L 3.5-5.2 chloride, serum 100 mmol/L 98-107 carbon dioxide, venous blood 32.9 mmol/L 21.0-32 .0 blood glucose 93 mg/dL 65-110 urea nitrogen, blood 15 mg/dL 7-18 creatinine, serum 1.00 mg/dL 0.60-1.30 alanine aminotransferase (SGPT), serum 14 U/L - aspartate aminotransferase (SGOT), serum 17 U/L 15-37 alkaline phosphatase, serum 118 U/L 50-136 calcium, serum 9.1 mg/dL 8.5-10.1 bilirubin, serum, total 0.70 mg/dL 0.00-1.00 sodium, serum 142 mmol/L 937-476 6123/01/03 potassium, serum 3.4 mmol/L 3.5-5.2 chloride, serum 101 mmol/L 98-107 carbon dioxide, venous blood 31.9 mmol/L 21.0-32 .0 blood glucose 98 mg/dL 65-110 urea nitrogen, blood 23 mg/dL 7-18 creatinine, serum 1.60 mg/dL 0.60-1.30 alanine aminotransferase (SGPT), serum 17 U/L - aspartate aminotransferase (SGOT), serum 21 U/L -37 alkaline phosphatase, serum 163 U/L 50-136 calcium, serum 8.5 mg/dL 8.5-10.1 bilirubin, serum, total 0.50 mg/dL 0.00-1.00 sodium, serum 140 mmol/L 309-569 5139/01/06 potassium, serum 3.4 mmol/L 3.5-5.2 chloride, serum [...] 0.40 mg/dL 0.00-1.00 sodium, serum 136 mmol/L 215-710 1603/04/03 potassium, serum 3.7 mmol/L 3.5-5.2 chloride, serum [...] 0.40 mg/dL 0.00-1.00 sodium, serum 136 mmol/L 263-705 1767/02/11 potassium, serum 3.1 mmol/L 3.5-5.2 chloride, serum 97 mmol/L 98-107 carbon dioxide, venous blood 31.8 mmol/L 21.0-32 .0 blood glucose 99 mg/dL 65-110 urea nitrogen, blood 20 mg/dL 7-18 creatinine, serum 0.90 mg/dL 0.60-1.30 alanine aminotransferase (SGPT), serum 11 U/L aspartate aminotransferase (SGOT), serum 15 U/L 15-37 alkaline phosphatase, serum 106 U/L 50-136 calcium, serum 8.7 mg/dL 8.5-10.1 bilirubin, serum, total 0.50 mg/dL 0.00-1.00 sodium, serum 139 mmol/L 576-011 9170/02/18 potassium, serum 3.6 mmol/L 3.5-5.2 chloride, serum [...] 11 .6-14.8 platelet count 246 10^3/MM^3 10*3/mm3 745-837 3859/02/18 leukocyte count, blood 4.0 10^3/MM^3 10*3/mm3 4.6-10.2 [...] 11 .6-14.8 platelet count 134 10^3/MM^3 10*3/mm3 683-333 2402/01/03 leukocyte count, blood 8.1 10^3/MM^3 10*3/mm3 4.6-10.2 [...] 11 .6-14.8 platelet count 96 10^3/MM^3 10*3/mm3 363-803 8338/01/06 leukocyte count, blood 7.6 10^3/MM^3 10*3/mm3 4.6-10.2 [...] 11 .6-14.8 platelet count 132 10^3/MM^3 10*3/mm3 156-776 0391/02/11 leukocyte count, blood 4.8 10^3/MM^3 10*3/mm3 4.6-10.2 [...] 11 .6-14.8 platelet count 102 10^3/MM^3 10*3/mm3 418-518 5323/02/04 leukocyte count, blood 3.6 10^3/MM^3 10*3/mm3 4.6-10.2 [...] 11 .6-14.8 platelet count 70 10^3/MM^3 10*3/mm3 226-356 5903/01/28 leukocyte count, blood 4.2 10^3/MM^3 10*3/mm3 4.6-10.2 [...] 11 .6-14.8 platelet count 73 10^3/MM^3 10*3/mm3 217-192 4882/01/21 leukocyte count, blood 4.9 10^3/MM^3 10*3/mm3 4.6-10.2 [...] .6-14.8 platelet count 38 recounted 10^3/mm^3 10*3/mm3 729-657 4928/10/08 leukocyte count, blood 2.9 10^3/MM^3 10*3/mm3 4.6-10.2 [...] 11 .6-14.8 platelet count 229 10^3/MM^3 10*3/mm3 596-332 7061/10/17 leukocyte count, blood 12.0 10^3/MM^3 10*3/mm3 4.6-10.2 [...] 11 .6-14.8 platelet count 232 10^3/MM^3 10*3/mm3 167-988 1019/10/01 leukocyte count, blood 8.3 10^3/MM^3 10*3/mm3 4.6-10.2 neutrophils as percent of blood leukocytes 76.0 % 42.2-75.2 monocytes as percent of blood leukocytes 6.1 % 1.7-9.3 lymphocytes as percent of blood leukocytes 14.1 % 20.5-51.1 erythrocyte (RBC) count 3.96 10^6/MM^3 10*6/mm3 4.04-5.4 8 hemoglobin, blood 11.2 g/dL 12.0-16.0 hematocrit, blood 34.4 % 36.0-46.0 mean corpuscular volume, RBC 87 fL 80-97 mean corpuscular hemoglobin, RBC 28.3 pg 27. 0-31.2 mean corpuscular hemoglobin concentration, RBC 32.6 G/DL % 31.8-35.4 red blood cell distribution width 18.2 % 11 .6-14.8 platelet count 378 10^3/MM^3 10*3/mm3 836-317 0311/12/03 leukocyte count, blood 8.2 10^3/MM^3 10*3/mm3 4.6-10.2 [...] Diff/Morphology - Chemistry sodium, serum 141 mmol/L 827-757 0228/11/25 potassium, serum 3.9 mmol/L 3.5-5.2 chloride, serum [...] 0.50 mg/dL 0.00-1.00 sodium, serum 137 mmol/L 465-764 6258/11/12 potassium, serum 3.2 mmol/L 3.5-5.2 chloride, serum [...] 0.40 mg/dL 0.00-1.00 sodium, serum 140 mmol/L 041-165 9520/12/17 potassium, serum 3.3 mmol/L 3.5-5.2 chloride, serum [...] 0.40 mg/dL 0.00-1.00 sodium, serum 138 mmol/L 010-252 9209/12/24 potassium, serum 3.7 mmol/L 3.5-5.2 chloride, serum [...] 0.50 mg/dL 0.00-1.00 sodium, serum 138 mmol/L 858-621 1767/11/05 potassium, serum 3.9 mmol/L 3.5-5.2 chloride, serum [...] 0.40 mg/dL 0.00-1.00 sodium, serum 135 mmol/L 883-055 9893/10/22 potassium, serum 3.0 mmol/L 3.5-5.2 chloride, serum [...] 0.50 mg/dL 0.00-1.00 sodium, serum 128 mmol/L 960-578 5406/10/29 potassium, serum 2.6 mmol/L 3.5-5.2 chloride, serum [...] 0.50 mg/dL 0.00-1.00 sodium, serum 141 mmol/L 464-151 5772/01/14 potassium, serum 3.9 mmol/L 3.5-5.2 chloride, serum [...] 11 .6-14.8 platelet count 22 10^3/MM^3 10*3/mm3 791-179 7224/10/22 leukocyte count, blood 14.7 10^3/MM^3 10*3/mm3 4.6-10.2 [...] 11 .6-14.8 platelet count 428 10^3/MM^3 10*3/mm3 930-548 3584/10/29 leukocyte count, blood 26.3 10^3/MM^3 10*3/mm3 4.6-10.2 [...] 11 .6-14.8 platelet count 268 10^3/MM^3 10*3/mm3 963-383 6357/11/12 leukocyte count, blood 12.1 10^3/MM^3 10*3/mm3 4.6-10.2 [...] 11 .6-14.8 platelet count 157 10^3/MM^3 10*3/mm3 288-152 9388/11/05 leukocyte count, blood 16.4 10^3/MM^3 10*3/mm3 4.6-10.2 [...] 11 .6-14.8 platelet count 215 10^3/MM^3 10*3/mm3 419-606 8273/12/24 leukocyte count, blood 14.0 10^3/MM^3 10*3/mm3 4.6-10.2 [...] 11 .6-14.8 platelet count 66 10^3/MM^3 10*3/mm3 246-664 2089/12/17 leukocyte count, blood 18.6 10^3/MM^3 10*3/mm3 4.6-10.2 [...] 11 .6-14.8 platelet count 75 10^3/MM^3 10*3/mm3 415-357 1949/11/25 leukocyte count, blood 21.1 10^3/MM^3 10*3/mm3 4.6-10.2 [...] 11 .6-14.8 platelet count 413 10^3/MM^3 10*3/mm3 769-359 0285/01/16 leukocyte count, blood 3.6 10^3/MM^3 10*3/mm3 4.6-10.2 [...] - Chem istry sodium, serum 141 mmol/L 984-759 6473/11/19 potassium, serum 3.9 mmol/L 3.5-5.2 chloride, serum [...] 0.50 mg/dL 0.00-1.00 sodium, serum 142 mmol/L 538-258 4676/12/10 potassium, serum 3.9 mmol/L 3.5-5.2 chloride, serum [...] Diff/Morphology - Chemistry sodium, serum 142 mmol/L 202-325 0927/12/31 potassium, serum 3.6 mmol/L 3.5-5.2 chloride, serum [...] 3.5-5.2 Encounters Code Encounter Date Provider Facility CPT-20692 Level 3 New Patient 01:46:11 [employer] Hope landers MD PhD [facility] Procedures Code Procedure Name Date Entry Date Standard Desc ription CPT-68540 Postop F/U Visit 15:47:49 CDT CPT-89583 Postop F/U Visit 15:21:02 CDT CPT-TCM Transitional Care Mgmt-High 07:52:27 CDT 20 20/06/01 CPT-66842 Venipuncture Draw Fee 13:51:18 CDT CPT-21479 Venipuncture Draw Fee 10:14:55 [employer] CPT-68339 Venipuncture Draw Fee 13:39:45 [employer] CPT-OV Office Visit 15:11:22 [employer] CPT-53884 Venipuncture Draw Fee 09:20:49 [employer] CPT-91425 Venipuncture Draw Fee 16:52:15 [employer] CPT-05659 Venipuncture Draw Fee 10:37:24 [employer] CPT-89577 Venipuncture Draw Fee 08:21:21 [employer] CPT-85781 Venipuncture Draw Fee 08:30:20 [employer] CPT-01404 Venipuncture Draw Fee 14:53:21 [employer] CPT-66097 Venipuncture Draw Fee 09:40:56 [employer] CPT-23138 Venipuncture Draw Fee 10:30:47 [employer] CPT-49306 Venipuncture Draw Fee 10:46:17 [employer] CPT-34749 Venipuncture Draw Fee 11:12:45 [employer] CPT-85583 Venipuncture Draw Fee 09:53:33 [employer] CPT-16057 Venipuncture Draw Fee 11:53:51 [employer] CPT-11121 Venipuncture Draw Fee 10:33:50 [employer] CPT-19790 Venipuncture Draw Fee 10:05:01 [employer] CPT-46581 Venipuncture Draw Fee 14:32:52 [employer] CPT-24294 Venipuncture Draw Fee 09:46:13 [employer] CPT-68080 Venipuncture Draw Fee 11:34:27 [employer] CPT-13790 Venipuncture Draw Fee 13:17:16 [employer] CPT-08480 Venipuncture Draw Fee 12:05:39 CDT CPT-85954 Venipuncture Draw Fee 12:49:12 CDT CPT-74352 Venipuncture Draw Fee 12:37:18 CDT CPT-55385 Venipuncture Draw Fee 10:57:11 CDT CPT-38315 Venipuncture Draw Fee 13:47:40 CDT CPT-48709 Venipuncture Draw Fee 10:02:17 CDT CPT-10342 TB Tubersol 17:32:32 CDT CPT-OV Office Visit 16:21:53 CDT CPT-OV Office Visit 15:49:22 CDT CPT-OV Office Visit 17:16:31 CDT CPT-OV Office Visit 10:43:31 CDT
--- OUTSIDE RECORDS SUMMARY | 2019-02-09 13:02 | XMS REPORT | Clinical Summary ---
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 Dick Yates MD ABDOMINAL PAIN, GENERALIZED ICD-789.07 Inactive Hope Benavidez MD PhD FEVER UNSPECIFIED ICD-780.60 Inactive Hope cohn MD PhD UNSPECIFIED VENOUS INSUFFICIENCY ICD-459.81 Elda ctive Adam Yates MD ADENOCARCINOMA, 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 Inac tive Hope Benavidez MD PhD Hyperkalemia ICD-276.7 Inactive Hope Benavidez MD PhD Health maintenance exam ICD-V70.0 Bam Yates MD Medication List Medication Instructions Start Date Stop Date Generic Name NDC Status Provider Patient Instruction PROZAC 20 MG CAPS 1 q d FLUOXETINE HCL 63781 [id number] No Longer Active Hope Benavidez MD PhD Active INNOPRAN XL 120 MG [id number] Take one by mouth daily PROPRANOLOL HCL SR BEADS 47368902249 Active Hope Benavidez MD PhD Active POTASSIUM CHLORIDE 20 MEQ PACK by mouth twice a day prn POTASSIUM CHLORIDE 42898607417 Active Adam Yates MD Activ e CYCLOBENZAPRINE HCL 10 MG TABS 1 tablet by mouth three times daily as needed for headaches CYCLOBENZAPRINE HCL 54667081241 Active Selena Yates MD Active SIMVASTATIN 40 MG TABS 1 qd SIMVASTATIN 004 82148844 No Longer Active Adam Yates MD Active MELOXICAM 15 MG TABS 1 qd MELOXICAM 7205367 7128 No Longer Active Adam Yates MD Active ATENOLOL 50 MG TABS 1/2 tab q other day ATENOLOL 03764026898 Active Hope Benavidez MD PhD Active OMEPRAZOLE 20 MG CPDR 1 tablet by mouth daily for GERD OMEPRAZOLE 02958227181 Active Hope Benavidez MD PhD Active IMODIUM A-D 2 MG TABS 2 onset at diarrhea and prn. LOPERAMIDE HCL 64816186621 Active Hope Benavidez MD PhD Active PHENADOZ 25 MG SUPP 1 every 4 hrs. PRN PROMETHAZINE HCL 99201709406 Active Hope Benavidez MD PhD Active PROMETHAZINE HCL 25 MG TABS 1 Q. 4 hr. PRN PROMETH AZINE HCL 01552317050 Active Hope Benavidez MD PhD Active EXCEDRIN EXTRA STRENGTH 250-250-65 MG TABS 1-2 q6h PRN headache 201 04/16/21 [id number] 40962616440 Active Hope Benavidez MD PhD Active ZOFRAN 4 MG TABS 1 q 6 hr prn ONDANSETRON HCL 6480544 7002 Active Fay Alberts Active FLAGYL 500 MG TABS 1 qid METRONIDAZOLE 75961 661635 No Longer Active Adam Yates MD Active LEVAQUIN 750 MG TABS 1 qd LEVOFLOXACIN 5486 8011019 No Longer Active Adam Yates MD Active DYAZIDE 37.5-25 MG CAPS 1 qd TRIAMTERENE-HCTZ 5886 9813992 Active Hope Benavidez MD PhD Active ADULT ASPIRIN LOW STRENGTH 81 MG TBDP 1 qd A SPIRIN 06766692702 Active Hope Benavidez MD PhD Active LEVAQUIN 750 MG TABS 1 qd LEVAQUIN 750 MG T ABS 746780 LEVOFLOXACIN Inactive FLAGYL 500 MG TABS 1 qid FLAGYL 500 MG TABS 941612 METRONIDAZOLE Inactive MELOXICAM 15 MG TABS 1 qd MELOXICAM 15 MG T ABS 649693 MELOXICAM Inactive SIMVASTATIN 40 MG TABS 1 qd SIMVASTATIN 40 MG TABS 053847 SIMVASTATIN Inactive PROZAC 20 MG CAPS 1 q d PROZAC 20 MG CAPS 31 0385 FLUOXETINE HCL Inactive Advance Directives Directive Description Start Date PERMISSION TO SHARE Immunizations Vaccine Administration Date Value Standard Stevan cription influenza immunization (Flu Vax) has been administered 4 given influenza virus vaccine, unspecified formulation TB PPD (tuberculin purified protein derivative), intra dermal administration Tubersol dT (Diphtheria and Tetanus) booster given Td(adult) unspecified formulation pneumococcal immunization administered given pneumococcal polysaccharide vaccine, 23 valent Vital Signs Date Name Value Unit Range Description blood pressure, diastolic 74 mm[Hg] BP dobson blood pressure, systolic 120 mm[Hg] BP sys height E&M 62.5 [in_us] Bdy height pulse rate E&M 91 /min Heart rate temperature E&M 99.0 [degF] Body temp erature weight E&M 108 [lb_av] Weight Measure d blood pressure, diastolic 61 mm[Hg] BP dobson blood pressure, systolic 106 mm[Hg] BP sys height E&M 62.5 [in_us] Bdy height pulse rate E&M 77 /min Heart rate temperature E&M 99 [degF] Body temp erature weight E&M 113 [lb_av] Weight Measure d blood pressure, diastolic 76 mm[Hg] BP dobson blood pressure, systolic 129 mm[Hg] BP sys height E&M 62.5 [in_us] Bdy height pulse rate E&M 69 /min Heart rate temperature E&M 98.8 [degF] Body temp erature weight E&M 109 [lb_av] Weight Measure d blood pressure, diastolic 71 mm[Hg] BP dobson blood pressure, systolic 116 mm[Hg] BP sys height E&M 62.5 [in_us] Bdy height pulse rate E&M 67 /min Heart rate temperature E&M 98.5 [degF] Body temp erature weight E&M 117.56 [lb_av] Weight Measure d blood pressure, diastolic 78 mm[Hg] BP dobson blood pressure, systolic 123 mm[Hg] BP sys height E&M 64 [in_us] Bdy height pulse rate E&M 68 /min Heart rate temperature E&M 98.3 [degF] Body temp erature weight E&M 125 [lb_av] Weight Measure d blood pressure, diastolic 69 mm[Hg] BP dobson blood pressure, systolic 102 mm[Hg] BP sys height E&M 64 [in_us] Bdy height pulse rate E&M 81 /min Heart rate temperature E&M 99.5 [degF] Body temp erature weight E&M 136 [lb_av] Weight Measure d blood pressure, diastolic 83 mm[Hg] BP dobson blood pressure, systolic 133 mm[Hg] BP sys height E&M 64 [in_us] Bdy height pulse rate E&M 99 /min Heart rate temperature E&M 99.2 [degF] Body temp erature weight E&M 138 [lb_av] Weight Measure d blood pressure, diastolic 80 mm[Hg] BP dobson blood pressure, systolic 144 mm[Hg] BP sys height E&M 64 [in_us] Bdy height pulse rate E&M 81 /min Heart rate temperature E&M 100. [degF] Body temp erature weight E&M 144 [lb_av] Weight Measure d Diagnostic Results Date Name Value Unit Range Description Immunizations: Immunization Administrati on PPD RESULTS - Challenge tests PPD results in mm 0mm mm Lab Report: Basic Metabolic Panel - Chem istry sodium, serum 137 mmol/L 111-388 0270/11/01 potassium, serum 3.7 mmol/L 3.5-5.2 chloride, serum 100 mmol/L 98-107 carbon dioxide, venous blood 31.8 mmol/L 21.0-32 .0 blood glucose 98 mg/dL 65-110 calcium, serum 8.6 mg/dL 8.5-10.1 urea nitrogen, blood 23 mg/dL 7-18 creatinine, serum 1.50 mg/dL 0.60-1.30 sodium, serum 136 mmol/L 754-257 4759/05/02 potassium, serum 4.1 mmol/L 3.5-5.2 chloride, serum [...] Lab Report: CBC W/ DIFF, BMP, YANCI, NITZA AEROBIC CX - Chemistry sodium, serum 137 mmol/L potassium, serum 3.8 mmol/L blood glucose 79 mg/dL creatinine, serum 1.02 mg/dL magnesium, serum 1.2 mg/dL Lab Report: CBC W/ DIFF, BMP, YANCI AN AEROBIC CX - Hematology leukocyte count, [...] 11 .6-14.8 platelet count 133 10^3/MM^3 10*3/mm3 793-743 9020/01/17 leukocyte count, blood 3.1 10^3/MM^3 10*3/mm3 4.6-10.2 [...] 11 .6-14.8 platelet count 22 10^3/MM^3 10*3/mm3 998-478 0901/11/19 leukocyte count, blood 10.4 10^3/MM^3 10*3/mm3 4.6-10.2 [...] Verified By Repeat Analysis 10^3/mm ^3 10*3/mm3 007-456 6869/12/10 leukocyte count, blood 7.8 10^3/MM^3 10*3/mm3 4.6-10.2 [...] Panel - Chemistry sodium, serum 139 mmol/L 503-546 9709/12/03 potassium, serum 3.7 mmol/L 3.5-5.2 chloride, serum 99 mmol/L 98-107 carbon dioxide, venous blood 30.6 mmol/L 21.0-32 .0 blood glucose 117 mg/dL 65-110 urea nitrogen, blood 15 mg/dL 7-18 creatinine, serum 1.50 mg/dL 0.60-1.30 alanine aminotransferase (SGPT), serum 27 U/L aspartate aminotransferase (SGOT), serum 24 U/L 15-37 alkaline phosphatase, serum 169 U/L 50-136 calcium, serum 9.0 mg/dL 8.5-10.1 bilirubin, serum, total 0.40 mg/dL 0.00-1.00 sodium, serum 137 mmol/L 457-686 1657/10/01 potassium, serum 3.5 mmol/L 3.5-5.2 chloride, serum 96 mmol/L 98-107 carbon dioxide, venous blood 33.5 mmol/L 21.0-32 .0 blood glucose 121 mg/dL 65-110 urea nitrogen, blood 23 mg/dL 7-18 creatinine, serum 1.30 mg/dL 0.60-1.30 alanine aminotransferase (SGPT), serum 17 U/L aspartate aminotransferase (SGOT), serum 17 U/L 15-37 alkaline phosphatase, serum 109 U/L 50-136 calcium, serum 8.8 mg/dL 8.5-10.1 bilirubin, serum, total 0.60 mg/dL 0.00-1.00 sodium, serum 136 mmol/L 508-528 7537/10/08 potassium, serum 3.1 mmol/L 3.5-5.2 chloride, serum 96 mmol/L 98-107 carbon dioxide, venous blood 32.7 mmol/L 21.0-32 .0 blood glucose 102 mg/dL 65-110 urea nitrogen, blood 35 mg/dL 7-18 creatinine, serum 1.40 mg/dL 0.60-1.30 alanine aminotransferase (SGPT), serum 17 U/L -78 aspartate aminotransferase (SGOT), serum 17 U/L 15-37 alkaline phosphatase, serum 145 U/L 50-136 calcium, serum 7.9 mg/dL 8.5-10.1 bilirubin, serum, total 0.60 mg/dL 0.00-1.00 sodium, serum 139 mmol/L 234-275 9562/10/17 potassium, serum 3.1 mmol/L 3.5-5.2 chloride, serum 98 mmol/L 98-107 carbon dioxide, venous blood 29.8 mmol/L 21.0-32 .0 blood glucose 97 mg/dL 65-110 urea nitrogen, blood 8 mg/dL 7-18 creatinine, serum 1.30 mg/dL 0.60-1.30 alanine aminotransferase (SGPT), serum 36 U/L -78 aspartate aminotransferase (SGOT), serum 46 U/L 15-37 alkaline phosphatase, serum 127 U/L 50-136 calcium, serum 7.7 mg/dL 8.5-10.1 bilirubin, serum, total 0.30 mg/dL 0.00-1.00 sodium, serum 139 mmol/L 948-476 9215/01/21 potassium, serum 3.4 mmol/L 3.5-5.2 chloride, serum [...] 0.40 mg/dL 0.00-1.00 sodium, serum 138 mmol/L 880-980 8632/01/28 potassium, serum 3.2 mmol/L 3.5-5.2 chloride, serum 97 mmol/L 98-107 carbon dioxide, venous blood 27.8 mmol/L 21.0-32 .0 blood glucose 97 mg/dL 65-110 urea nitrogen, blood 16 mg/dL 7-18 creatinine, serum 1.30 mg/dL 0.60-1.30 alanine aminotransferase (SGPT), serum 13 U/L 12-78 aspartate aminotransferase (SGOT), serum 16 U/L 15-37 alkaline phosphatase, serum 128 U/L 50-136 calcium, serum 9.3 mg/dL 8.5-10.1 bilirubin, serum, total 0.40 mg/dL 0.00-1.00 sodium, serum 140 mmol/L 513-688 6814/02/04 potassium, serum 3.6 mmol/L 3.5-5.2 chloride, serum [...] 0.70 mg/dL 0.00-1.00 sodium, serum 142 mmol/L 890-078 9885/01/03 potassium, serum 3.4 mmol/L 3.5-5.2 chloride, serum 101 mmol/L 98-107 carbon dioxide, venous blood 31.9 mmol/L 21.0-32 .0 blood glucose 98 mg/dL 65-110 urea nitrogen, blood 23 mg/dL - creatinine, serum 1.60 mg/dL 0.60-1.30 alanine aminotransferase (SGPT), serum 17 U/L aspartate aminotransferase (SGOT), serum 21 U/L 15-37 alkaline phosphatase, serum 163 U/L 50-136 calcium, serum 8.5 mg/dL 8.5-10.1 bilirubin, serum, total 0.50 mg/dL 0.00-1.00 sodium, serum 140 mmol/L 668-410 1915/01/06 potassium, serum 3.4 mmol/L 3.5-5.2 chloride, serum 101 mmol/L 98-107 carbon dioxide, venous blood 30.4 mmol/L 21.0-32 .0 blood glucose 112 mg/dL 65-110 urea nitrogen, blood 21 mg/dL 7-18 creatinine, serum 1.40 mg/dL 0.60-1.30 alanine aminotransferase (SGPT), serum 16 U/L aspartate aminotransferase (SGOT), serum 24 U/L 15-37 alkaline phosphatase, serum 147 U/L 50-136 calcium, serum 8.7 mg/dL 8.5-10.1 bilirubin, serum, total 0.40 mg/dL 0.00-1.00 sodium, serum 136 mmol/L 593-522 2777/04/03 potassium, serum 3.7 mmol/L 3.5-5.2 chloride, serum [...] 0.40 mg/dL 0.00-1.00 sodium, serum 136 mmol/L 588-902 0658/02/11 potassium, serum 3.1 mmol/L 3.5-5.2 chloride, serum 97 mmol/L 98-107 carbon dioxide, venous blood 31.8 mmol/L 21.0-32 .0 blood glucose 99 mg/dL 65-110 urea nitrogen, blood 20 mg/dL 7-18 creatinine, serum 0.90 mg/dL 0.60-1.30 alanine aminotransferase (SGPT), serum 11 U/L -78 aspartate aminotransferase (SGOT), serum 15 U/L 15-37 alkaline phosphatase, serum 106 U/L 50-136 calcium, serum 8.7 mg/dL 8.5-10.1 bilirubin, serum, total 0.50 mg/dL 0.00-1.00 sodium, serum 139 mmol/L 366-233 9719/02/18 potassium, serum 3.6 mmol/L 3.5-5.2 chloride, serum [...] 11 .6-14.8 platelet count 246 10^3/MM^3 10*3/mm3 708-314 8032/02/18 leukocyte count, blood 4.0 10^3/MM^3 10*3/mm3 4.6-10.2 [...] 11 .6-14.8 platelet count 134 10^3/MM^3 10*3/mm3 709-168 5116/01/03 leukocyte count, blood 8.1 10^3/MM^3 10*3/mm3 4.6-10.2 [...] 11 .6-14.8 platelet count 96 10^3/MM^3 10*3/mm3 455-514 0619/01/06 leukocyte count, blood 7.6 10^3/MM^3 10*3/mm3 4.6-10.2 [...] 11 .6-14.8 platelet count 132 10^3/MM^3 10*3/mm3 062-147 3427/02/11 leukocyte count, blood 4.8 10^3/MM^3 10*3/mm3 4.6-10.2 [...] 11 .6-14.8 platelet count 102 10^3/MM^3 10*3/mm3 848-121 5982/02/04 leukocyte count, blood 3.6 10^3/MM^3 10*3/mm3 4.6-10.2 [...] 11 .6-14.8 platelet count 70 10^3/MM^3 10*3/mm3 538-123 8894/01/28 leukocyte count, blood 4.2 10^3/MM^3 10*3/mm3 4.6-10.2 [...] 11 .6-14.8 platelet count 73 10^3/MM^3 10*3/mm3 244-391 9005/01/21 leukocyte count, blood 4.9 10^3/MM^3 10*3/mm3 4.6-10.2 [...] .6-14.8 platelet count 38 recounted 10^3/mm^3 10*3/mm3 892-087 5260/10/08 leukocyte count, blood 2.9 10^3/MM^3 10*3/mm3 4.6-10.2 [...] 11 .6-14.8 platelet count 229 10^3/MM^3 10*3/mm3 776-788 5275/10/17 leukocyte count, blood 12.0 10^3/MM^3 10*3/mm3 4.6-10.2 [...] 11 .6-14.8 platelet count 232 10^3/MM^3 10*3/mm3 222-123 0585/10/01 leukocyte count, blood 8.3 10^3/MM^3 10*3/mm3 4.6-10.2 [...] 11 .6-14.8 platelet count 378 10^3/MM^3 10*3/mm3 537-158 9313/12/03 leukocyte count, blood 8.2 10^3/MM^3 10*3/mm3 4.6-10.2 [...] Diff/Morphology - Chemistry sodium, serum 141 mmol/L 107-903 0138/11/25 potassium, serum 3.9 mmol/L 3.5-5.2 chloride, serum [...] 0.50 mg/dL 0.00-1.00 sodium, serum 137 mmol/L 822-189 9295/11/12 potassium, serum 3.2 mmol/L 3.5-5.2 chloride, serum 96 mmol/L 98-107 carbon dioxide, venous blood 34.5 mmol/L 21.0-32 .0 blood glucose 130 mg/dL 65-110 urea nitrogen, blood 32 mg/dL 7-18 creatinine, serum 1.30 mg/dL 0.60-1.30 alanine aminotransferase (SGPT), serum 40 U/L -78 aspartate aminotransferase (SGOT), serum 45 U/L 15-37 alkaline phosphatase, serum 239 U/L 50-136 calcium, serum 8.7 mg/dL 8.5-10.1 bilirubin, serum, total 0.40 mg/dL 0.00-1.00 sodium, serum 140 mmol/L 900-114 2466/12/17 potassium, serum 3.3 mmol/L 3.5-5.2 chloride, serum 98 mmol/L 98-107 carbon dioxide, venous blood 33.1 mmol/L 21.0-32 .0 blood glucose 110 mg/dL 65-110 urea nitrogen, blood 20 mg/dL 7-18 creatinine, serum 1.80 mg/dL 0.60-1.30 alanine aminotransferase (SGPT), serum 25 U/L 78 aspartate aminotransferase (SGOT), serum 27 U/L 15-37 alkaline phosphatase, serum 174 U/L 50-136 calcium, serum 8.2 mg/dL 8.5-10.1 bilirubin, serum, total 0.40 mg/dL 0.00-1.00 sodium, serum 138 mmol/L 920-720 9638/12/24 potassium, serum 3.7 mmol/L 3.5-5.2 chloride, serum 100 mmol/L 98-107 carbon dioxide, venous blood 27.8 mmol/L 21.0-32 .0 blood glucose 87 mg/dL 65-110 urea nitrogen, blood 25 mg/dL 7-18 creatinine, serum 1.30 mg/dL 0.60-1.30 alanine aminotransferase (SGPT), serum 24 U/L -78 aspartate aminotransferase (SGOT), serum 39 U/L 15-37 alkaline phosphatase, serum 256 U/L 50-136 calcium, serum 8.6 mg/dL 8.5-10.1 bilirubin, serum, total 0.50 mg/dL 0.00-1.00 sodium, serum 138 mmol/L 768-893 3426/11/05 potassium, serum 3.9 mmol/L 3.5-5.2 chloride, serum [...] 0.40 mg/dL 0.00-1.00 sodium, serum 135 mmol/L 863-156 5977/10/22 potassium, serum 3.0 mmol/L 3.5-5.2 chloride, serum 93 mmol/L 98-107 carbon dioxide, venous blood 31.6 mmol/L 21.0-32 .0 blood glucose 142 mg/dL 65-110 urea nitrogen, blood 15 mg/dL 7-18 creatinine, serum 1.80 mg/dL 0.60-1.30 alanine aminotransferase (SGPT), serum 45 U/L - aspartate aminotransferase (SGOT), serum 48 U/L 15-37 alkaline phosphatase, serum 136 U/L 50-136 calcium, serum 8.3 mg/dL 8.5-10.1 bilirubin, serum, total 0.50 mg/dL 0.00-1.00 sodium, serum 128 mmol/L 357-221 9585/10/29 potassium, serum 2.6 mmol/L 3.5-5.2 chloride, serum 95 mmol/L 98-107 carbon dioxide, venous blood 35.6 mmol/L 21.0-32 .0 blood glucose 86 mg/dL 65-110 urea nitrogen, blood 25 mg/dL 7-18 creatinine, serum 1.50 mg/dL 0.60-1.30 alanine aminotransferase (SGPT), serum 34 U/L -78 aspartate aminotransferase (SGOT), serum 38 U/L 15-37 alkaline phosphatase, serum 242 U/L 50-136 calcium, serum 9.4 mg/dL 8.5-10.1 bilirubin, serum, total 0.50 mg/dL 0.00-1.00 sodium, serum 141 mmol/L 951-393 4019/01/14 potassium, serum 3.9 mmol/L 3.5-5.2 chloride, serum [...] 11 .6-14.8 platelet count 22 10^3/MM^3 10*3/mm3 057-359 9053/10/22 leukocyte count, blood 14.7 10^3/MM^3 10*3/mm3 4.6-10.2 [...] 11 .6-14.8 platelet count 428 10^3/MM^3 10*3/mm3 313-898 3436/10/29 leukocyte count, blood 26.3 10^3/MM^3 10*3/mm3 4.6-10.2 [...] 11 .6-14.8 platelet count 268 10^3/MM^3 10*3/mm3 025-027 1299/11/12 leukocyte count, blood 12.1 10^3/MM^3 10*3/mm3 4.6-10.2 [...] 11 .6-14.8 platelet count 157 10^3/MM^3 10*3/mm3 179-654 9978/11/05 leukocyte count, blood 16.4 10^3/MM^3 10*3/mm3 4.6-10.2 [...] 11 .6-14.8 platelet count 215 10^3/MM^3 10*3/mm3 961-224 4577/12/24 leukocyte count, blood 14.0 10^3/MM^3 10*3/mm3 4.6-10.2 [...] 11 .6-14.8 platelet count 66 10^3/MM^3 10*3/mm3 972-088 1558/12/17 leukocyte count, blood 18.6 10^3/MM^3 10*3/mm3 4.6-10.2 [...] 11 .6-14.8 platelet count 75 10^3/MM^3 10*3/mm3 598-807 7695/11/25 leukocyte count, blood 21.1 10^3/MM^3 10*3/mm3 4.6-10.2 [...] 11 .6-14.8 platelet count 413 10^3/MM^3 10*3/mm3 818-225 4172/01/16 leukocyte count, blood 3.6 10^3/MM^3 10*3/mm3 4.6-10.2 [...] - Chem istry sodium, serum 141 mmol/L 166-958 1417/11/19 potassium, serum 3.9 mmol/L 3.5-5.2 chloride, serum 101 mmol/L 98-107 carbon dioxide, venous blood 32.0 mmol/L 21.0-32 .0 blood glucose 109 mg/dL 65-110 urea nitrogen, blood 22 mg/dL 7-18 creatinine, serum 1.50 mg/dL 0.60-1.30 alanine aminotransferase (SGPT), serum 38 U/L -78 aspartate aminotransferase (SGOT), serum 25 U/L 15-37 alkaline phosphatase, serum 184 U/L 50-136 calcium, serum 9.0 mg/dL 8.5-10.1 bilirubin, serum, total 0.50 mg/dL 0.00-1.00 sodium, serum 142 mmol/L 822-739 3596/12/10 potassium, serum 3.9 mmol/L 3.5-5.2 chloride, serum 102 mmol/L 98-107 carbon dioxide, venous blood 32.9 mmol/L 21.0-32 .0 blood glucose 86 mg/dL 65-110 urea nitrogen, blood 26 mg/dL 7-18 creatinine, serum 1.30 mg/dL 0.60-1.30 alanine aminotransferase (SGPT), serum 25 U/L -78 aspartate aminotransferase (SGOT), serum 30 U/L 15-37 alkaline phosphatase, serum 201 U/L 50-136 calcium, serum 8.5 mg/dL 8.5-10.1 bilirubin, serum, total 0.40 mg/dL 0.00-1.00 Lab Report: Comp. Metabolic Panel, CBC W /DIFF, Manual Diff/Morphology - Chemistry sodium, serum 142 mmol/L 351-755 1321/12/31 potassium, serum 3.6 mmol/L 3.5-5.2 chloride, serum [...] 3.5-5.2 Encounters Code Encounter Date Provider Facility CPT-71659 Level 3 New Patient 01:46:11 [employer] Hope landers MD PhD [facility] Procedures Code Procedure Name Date Entry Date Standard Desc ription CPT-14674 Postop F/U Visit 15:21:02 CDT CPT-TCMH Transitional Care Mgmt-High 07:52:27 CDT 20 20/06/01 CPT-50129 Venipuncture Draw Fee 13:51:18 CDT CPT-06745 Venipuncture Draw Fee 10:14:55 [employer] CPT-29807 Venipuncture Draw Fee 13:39:45 [employer] CPT-OV Office Visit 15:11:22 [employer] [employer] CPT-67734 Venipuncture Draw Fee 09:20:49 [employer] CPT-71330 Venipuncture Draw Fee 16:52:15 [employer] CPT-91804 Venipuncture Draw Fee 10:37:24 [employer] CPT-35560 Venipuncture Draw Fee 08:21:21 [employer] CPT-73649 Venipuncture Draw Fee 08:30:20 [employer] CPT-95705 Venipuncture Draw Fee 14:53:21 [employer] CPT-96997 Venipuncture Draw Fee 09:40:56 [employer] CPT-13908 Venipuncture Draw Fee 10:30:47 [employer] CPT-15948 Venipuncture Draw Fee 10:46:17 [employer] CPT-94058 Venipuncture Draw Fee 11:12:45 [employer] CPT-33112 Venipuncture Draw Fee 09:53:33 [employer] CPT-31914 Venipuncture Draw Fee 11:53:51 [employer] CPT-83480 Venipuncture Draw Fee 10:33:50 [employer] CPT-62235 Venipuncture Draw Fee 10:05:01 [employer] CPT-47698 Venipuncture Draw Fee 14:32:52 [employer] CPT-59228 Venipuncture Draw Fee 09:46:13 [employer] CPT-60398 Venipuncture Draw Fee 11:34:27 [employer] CPT-56337 Venipuncture Draw Fee 13:17:16 [employer] CPT-03920 Venipuncture Draw Fee 12:05:39 CDT CPT-92366 Venipuncture Draw Fee 12:49:12 CDT CPT-65291 Venipuncture Draw Fee 12:37:18 CDT CPT-74727 Venipuncture Draw Fee 10:57:11 CDT CPT-18059 Venipuncture Draw Fee 13:47:40 CDT CPT-93683 Venipuncture Draw Fee 10:02:17 CDT CPT-07464 TB Tubersol 17:32:32 CDT CPT-OV Office Visit 16:21:53 CDT CPT-OV Office Visit 15:49:22 CDT CPT-OV Office Visit 17:16:31 CDT CPT-OV Office Visit 10:43:31 CDT
--- OUTSIDE RECORDS SUMMARY | 2019-02-09 13:02 | XMS REPORT | Clinical Summary ---
[...] Asymptomatic postmenopausal status (age-related) (natural) V49.8 1 Active Citlaly Roland [facility] Asymptomatic postmenopausal status (age- related) (natural) Diarrhea 787.91 Active Hope Benavidez MD PhD Diarrhea Osteoporosis 733.00 Active Hope Benavidez MD PhD Osteoporosis, unspecified ABDOMINAL PAIN, RIGHT LOWER QUADRANT ICD-789.03 Inactive Kina Joshua APRN ADENOCARCINOMA, COLON, CECUM ICD-153.4 Dick Yates MD ABDOMINAL PAIN, GENERALIZED ICD-789.07 Inactive Hope Benavidez MD PhD FEVER UNSPECIFIED ICD-780.60 Inactive Hope cohn MD PhD UNSPECIFIED VENOUS INSUFFICIENCY ICD-459.81 [place] [facility] Adam Yates MD ADENOCARCINOMA, ASCENDING COLON [...] Generic Name NDC Status Provider Patient Instruction PROLIA 60 MG/ML SOLN 1 shot every 6 months for osteoprosis DENOSUMAB 42304618615 Active Hope Benavidez MD PhD Active CALCIUM + D + K 750-500-40 MG-UNT-MCG TABS 1 tab by mouth tw ice daily CALCIUM-VITAMIN D-VITAMIN K 11460879636 Active Hope landers MD PhD Active DAILY VALUE MULTIVITAMIN TABS 1 tab by mouth twice daily MULTIPLE VITAMIN 14601276572 Active Hope Benavidez MD PhD Active FISH OIL 306 MG CAPS 1 tab by mouth three times daily OMEGA-3 FATTY ACIDS 28849383659 Active Hope Benavidez MD PhD Active LUTEIN 10 MG TABS 1 tab daily LUTEIN 52525057602 Act cash Hope Benavidez MD PhD Active FLORANEX PACK 1 pack three times daily, for bowel health LACTOBACILLUS 96083221731 Active Hope Benavidez MD PhD Active LOMOTIL 2.5-0.025 MG TABS 1 tab by mouth prn DIPHENOXYLATE-ATROPINE 63875681859 Active Hope Benavidez MD PhD Active TRIAMTERENE-HCTZ 37.5-25 MG TABS 1 tab by mouth daily TRIAMTERENE-HCTZ 31755046564 Active Hope Benavidez MD PhD Acti ve IRON 325 (65 FE) MG TABS 1 tab daily FERROUS SULF ATE 33585478531 Active Hope Benavidez MD PhD Active MAGNESIUM GLUCONATE 250 MG TABS 1 tab tid MAGN ESIUM GLUCONATE 55663807786 Active Adam Yates MD Active ATENOLOL 50 MG TABS 1/2 tab q other day m-w-f ATE NOLOL 36797588926 Active Adam Yates MD Active PROPRANOLOL HCL 80 MG TABS 1 tab tue. and thur. PROPRANOLOL HCL 31830567893 Active Adam Yates MD Active CYCLOBENZAPRINE HCL 10 MG TABS 1 tablet by mouth three times daily as needed for headaches CYCLOBENZAPRINE HCL 23185032263 No Longe r Active Adam Yates MD Active OMEPRAZOLE 20 MG CPDR 1 tablet by mouth daily for GERD OMEPRAZOLE 52519719190 No Longer Active Adam Yates MD A ctive ZOFRAN 8 MG TABS 1 tab by mouth every 12 hours prn 201 05/16/09 ONDANSETRON HCL 29873070707 No Longer Active Adam Yates MD Active PHENADOZ 25 MG SUPP 1 every 4 hrs. PRN PROMETHA ZINE HCL 72522548221 No Longer Active Adam Yates MD Active POTASSIUM CHLORIDE 20 MEQ PACK by mouth twice a day prn POTASSIUM CHLORIDE 66823270339 No Longer Active Adam Yates MD Active PROMETHAZINE HCL 25 MG TABS 1 Q. 4 hr. PRN PROM ETHAZINE HCL 70307789162 No Longer Active Adam Yates MD Active INNOPRAN XL 120 MG [id number] Take one by mouth daily 2 PROPRANOLOL HCL SR BEADS 05417218545 No Longer Active Adam Yates MD A ctive FLAGYL 500 MG TABS 1 pill by mouth three times daily, for diarrh ea METRONIDAZOLE 77240885156 No Longer Active Hope Benavidez MD PhD Active DYAZIDE 37.5-25 MG CAPS 1 qd TRIAMTERENE-HC TZ 33108348459 No Longer Active Hope Benavidez MD PhD Active PROZAC 20 MG CAPS 1 q d FLUOXETINE HCL 97931 529955 No Longer Active Hope Benavidez MD PhD Active SIMVASTATIN 40 MG TABS 1 qd SIMVASTATIN 004 54102775 No Longer Active Adam Yates MD Active MELOXICAM 15 MG TABS 1 qd MELOXICAM 5810742 5511 No Longer Active Adam Yates MD Active IMODIUM A-D 2 MG TABS 2 onset at diarrhea and prn. LOPERAMIDE HCL 46001723614 Active Hope Benavidez MD PhD Active EXCEDRIN EXTRA STRENGTH 250-250-65 MG TABS 1-2 q6h PRN headache 201 04/16/21 [id number] 47992180482 Active Hope Benavidez MD PhD Active FLAGYL 500 MG TABS 1 qid METRONIDAZOLE 25423 342998 No Longer Active Adam Yates MD Active LEVAQUIN 750 MG TABS 1 qd LEVOFLOXACIN 5486 3415587 No Longer Active Adam Yates MD Active ADULT ASPIRIN LOW STRENGTH 81 MG TBDP 1 qd A SPIRIN 21519539013 Active Hope Benavidez MD PhD Active LEVAQUIN 750 MG TABS 1 qd LEVAQUIN 750 MG T ABS 968567 LEVOFLOXACIN Inactive FLAGYL 500 MG TABS 1 qid FLAGYL 500 MG TABS 780150 METRONIDAZOLE Inactive MELOXICAM 15 MG TABS 1 qd MELOXICAM 15 MG T ABS 746886 MELOXICAM Inactive SIMVASTATIN 40 MG TABS 1 qd SIMVASTATIN 40 MG TABS 127324 SIMVASTATIN Inactive PROZAC 20 MG CAPS 1 q d PROZAC 20 MG CAPS 31 0385 FLUOXETINE HCL Inactive DYAZIDE 37.5-25 MG CAPS 1 qd DYAZIDE 37.5 -25 MG CAPS 095293 TRIAMTERENE-HCTZ Inactive INNOPRAN XL 120 MG [id number] Take one by mouth daily 2 INNOPRAN XL 120 MG [id number] PROPRANOLOL HCL SR BEADS Inactive PROMETHAZINE HCL 25 MG TABS 1 Q. 4 hr. PRN PROMETHAZINE HCL 25 MG TABS 995529 PROMETHAZINE HCL Inactive POTASSIUM CHLORIDE 20 MEQ PACK by mouth twice a day prn POTASSIUM CHLORIDE 20 MEQ PACK 675028 POTASSIUM CHLORIDE Inactive PHENADOZ 25 MG SUPP 1 every 4 hrs. PRN PHENADOZ 2 5 MG SUPP 637029 PROMETHAZINE HCL Inactive ZOFRAN 8 MG TABS 1 tab by mouth every 12 hours prn 201 05/16/09 ZOFRAN 8 MG TABS 631534 ONDANSETRON HCL Inactive OMEPRAZOLE 20 MG CPDR 1 tablet by mouth daily for GERD OMEPRAZOLE 20 MG CPDR 938684 OMEPRAZOLE Inactive CYCLOBENZAPRINE HCL 10 MG TABS 1 tablet by mouth three times daily as needed for headaches CYCLOBENZAPRINE HCL 10 MG TABS 599480 CYCLOBENZAPRINE HCL Inactive FLAGYL 500 MG TABS 1 pill by mouth three times daily, for diarrh ea FLAGYL 500 MG TABS 304257 METRONIDAZOLE Inactive Advance Directives Directive Description Start Date [...] Value Unit Range Description blood pressure, diastolic 65 mm[Hg] BP dobson blood pressure, systolic 111 mm[Hg] BP sys height E&M 62.5 [in_us] Bdy height pulse rate E&M 66 /min Heart rate temperature E&M 97.9 [degF] Body temp erature weight E&M 117 [lb_av] Weight Measure d blood pressure, diastolic 76 mm[Hg] BP dobson blood pressure, systolic 136 mm[Hg] BP sys pulse rate E&M 64 /min Heart rate temperature E&M 98. [degF] Body temp erature weight E&M 118 [lb_av] Weight Measure d blood pressure, diastolic 76 mm[Hg] BP dobson blood pressure, systolic 124 mm[Hg] BP sys pulse rate E&M 80 /min Heart rate temperature E&M 98.3 [degF] Body temp erature weight E&M 109 [lb_av] Weight Measure d blood pressure, diastolic 74 mm[Hg] BP dobson [...] weight E&M 117.56 [lb_av] Weight Measure d Diagnostic Results Date Name Value Unit Range Description Lab Report: Basic Metabolic Panel - Chem istry sodium, serum 137 mmol/L 624-868 5228/11/01 potassium, serum 3.7 mmol/L 3.5-5.2 chloride, serum 100 mmol/L 98-107 carbon dioxide, venous blood 31.8 mmol/L 21.0-32 .0 blood glucose 98 mg/dL 65-110 calcium, serum 8.6 mg/dL 8.5-10.1 urea nitrogen, blood 23 mg/dL 7-18 creatinine, serum 1.50 mg/dL 0.60-1.30 sodium, serum 136 mmol/L 722-525 2867/05/02 potassium, serum 4.1 mmol/L 3.5-5.2 chloride, serum [...] 1.16 mg/dL Lab Report: CBC W/ DIFF, BMP, [...] 11 .6-14.8 platelet count 133 10^3/MM^3 10*3/mm3 497-561 4118/01/17 leukocyte count, blood 3.1 10^3/MM^3 10*3/mm3 4.6-10.2 [...] 11 .6-14.8 platelet count 22 10^3/MM^3 10*3/mm3 174-815 2040/11/19 leukocyte count, blood 10.4 10^3/MM^3 10*3/mm3 4.6-10.2 [...] Verified By Repeat Analysis 10^3/mm ^3 10*3/mm3 226-376 7712/12/10 leukocyte count, blood 7.8 10^3/MM^3 10*3/mm3 4.6-10.2 [...] Panel - Chemistry sodium, serum 139 mmol/L 992-394 1763/12/03 potassium, serum 3.7 mmol/L 3.5-5.2 chloride, serum [...] 0.40 mg/dL 0.00-1.00 sodium, serum 142 mmol/L 334-981 5376/01/03 potassium, serum 3.4 mmol/L 3.5-5.2 chloride, serum [...] 0.50 mg/dL 0.00-1.00 sodium, serum 140 mmol/L 312-761 2104/01/06 potassium, serum 3.4 mmol/L 3.5-5.2 chloride, serum [...] 0.40 mg/dL 0.00-1.00 sodium, serum 136 mmol/L 690-161 5686/10/08 potassium, serum 3.1 mmol/L 3.5-5.2 chloride, serum [...] 0.60 mg/dL 0.00-1.00 sodium, serum 139 mmol/L 093-174 0904/10/17 potassium, serum 3.1 mmol/L 3.5-5.2 chloride, serum [...] 0.30 mg/dL 0.00-1.00 sodium, serum 139 mmol/L 612-804 5859/01/21 potassium, serum 3.4 mmol/L 3.5-5.2 chloride, serum [...] 0.40 mg/dL 0.00-1.00 sodium, serum 138 mmol/L 476-923 4349/01/28 potassium, serum 3.2 mmol/L 3.5-5.2 chloride, serum [...] 0.40 mg/dL 0.00-1.00 sodium, serum 140 mmol/L 458-992 1578/02/04 potassium, serum 3.6 mmol/L 3.5-5.2 chloride, serum [...] serum, total 0.70 mg/dL 0.00-1.00 sodium, serum 136 mmol/L 442-880 2179/02/11 potassium, serum 3.1 mmol/L 3.5-5.2 chloride, serum 97 mmol/L 98-107 carbon dioxide, venous blood 31.8 mmol/L 21.0-32 .0 blood glucose 99 mg/dL 65-110 urea nitrogen, blood 20 mg/dL 7- creatinine, serum 0.90 mg/dL 0.60-1.30 alanine aminotransferase (SGPT), serum 11 U/L - aspartate aminotransferase (SGOT), serum 15 U/L 15-37 alkaline phosphatase, serum 106 U/L 50-136 calcium, serum 8.7 mg/dL 8.5-10.1 bilirubin, serum, total 0.50 mg/dL 0.00-1.00 sodium, serum 139 mmol/L 431-644 6752/02/18 potassium, serum 3.6 mmol/L 3.5-5.2 chloride, serum 98 mmol/L 98-107 carbon dioxide, venous blood 33.2 mmol/L 21.0-32 .0 blood glucose 93 mg/dL 65-110 urea nitrogen, blood 13 mg/dL 7-18 creatinine, serum 1.00 mg/dL 0.60-1.30 alanine aminotransferase (SGPT), serum 12 U/L aspartate aminotransferase (SGOT), serum 16 U/L 15-37 alkaline phosphatase, serum 97 U/L 50-136 calcium, serum 8.6 mg/dL 8.5-10.1 bilirubin, serum, total 0.50 mg/dL 0.00-1.00 sodium, serum 138 mmol/L 183-440 6851/08/14 potassium, serum 4.0 mmol/L 3.5-5.2 chloride, serum 100 mmol/L 98-107 carbon dioxide, venous blood 28.7 mmol/L 21.0-32 .0 blood glucose 87 mg/dL 65-110 urea nitrogen, blood 25 mg/dL - creatinine, serum 1.20 mg/dL 0.60-1.30 alanine aminotransferase (SGPT), serum 38 U/L aspartate aminotransferase (SGOT), serum 32 U/L 15-37 alkaline phosphatase, serum 198 U/L 50-136 calcium, serum 9.8 mg/dL 8.5-10.1 bilirubin, serum, total 0.40 mg/dL 0.00-1.00 sodium, serum 136 mmol/L 972-157 0132/04/03 potassium, serum 3.7 mmol/L 3.5-5.2 chloride, serum [...] 11 .6-14.8 platelet count 193 10^3/MM^3 10*3/mm3 838-053 8643/04/03 leukocyte count, blood 5.6 10^3/MM^3 10*3/mm3 4.6-10.2 [...] 11 .6-14.8 platelet count 246 10^3/MM^3 10*3/mm3 749-296 3297/02/18 leukocyte count, blood 4.0 10^3/MM^3 10*3/mm3 4.6-10.2 [...] 11 .6-14.8 platelet count 134 10^3/MM^3 10*3/mm3 843-980 9935/02/11 leukocyte count, blood 4.8 10^3/MM^3 10*3/mm3 4.6-10.2 [...] 11 .6-14.8 platelet count 102 10^3/MM^3 10*3/mm3 438-802 2955/02/04 leukocyte count, blood 3.6 10^3/MM^3 10*3/mm3 4.6-10.2 [...] 11 .6-14.8 platelet count 70 10^3/MM^3 10*3/mm3 765-661 5703/01/28 leukocyte count, blood 4.2 10^3/MM^3 10*3/mm3 4.6-10.2 [...] 11 .6-14.8 platelet count 73 10^3/MM^3 10*3/mm3 689-290 9171/01/21 leukocyte count, blood 4.9 10^3/MM^3 10*3/mm3 4.6-10.2 [...] .6-14.8 platelet count 38 recounted 10^3/mm^3 10*3/mm3 675-152 8648/10/08 leukocyte count, blood 2.9 10^3/MM^3 10*3/mm3 4.6-10.2 [...] 11 .6-14.8 platelet count 229 10^3/MM^3 10*3/mm3 618-772 1915/10/17 leukocyte count, blood 12.0 10^3/MM^3 10*3/mm3 4.6-10.2 [...] 11 .6-14.8 platelet count 232 10^3/MM^3 10*3/mm3 980-709 7071/01/03 leukocyte count, blood 8.1 10^3/MM^3 10*3/mm3 4.6-10.2 [...] 11 .6-14.8 platelet count 96 10^3/MM^3 10*3/mm3 544-757 0739/01/06 leukocyte count, blood 7.6 10^3/MM^3 10*3/mm3 4.6-10.2 [...] 11 .6-14.8 platelet count 132 10^3/MM^3 10*3/mm3 983-256 4527/12/03 leukocyte count, blood 8.2 10^3/MM^3 10*3/mm3 4.6-10.2 [...] Diff/Morphology - Chemistry sodium, serum 141 mmol/L 872-901 8396/11/25 potassium, serum 3.9 mmol/L 3.5-5.2 chloride, serum 100 mmol/L 98-107 carbon dioxide, venous blood 33.0 mmol/L 21.0-32 .0 blood glucose 101 mg/dL 65-110 urea nitrogen, blood 28 mg/dL 7-18 creatinine, serum 1.40 mg/dL 0.60-1.30 alanine aminotransferase (SGPT), serum 26 U/L - aspartate aminotransferase (SGOT), serum 27 U/L 15-37 alkaline phosphatase, serum 225 U/L 50-136 calcium, serum 8.6 mg/dL 8.5-10.1 bilirubin, serum, total 0.50 mg/dL 0.00-1.00 sodium, serum 140 mmol/L 805-839 1328/12/17 potassium, serum 3.3 mmol/L 3.5-5.2 chloride, serum [...] 0.40 mg/dL 0.00-1.00 sodium, serum 138 mmol/L 429-749 2389/12/24 potassium, serum 3.7 mmol/L 3.5-5.2 chloride, serum 100 mmol/L 98-107 carbon dioxide, venous blood 27.8 mmol/L 21.0-32 .0 blood glucose 87 mg/dL 65-110 urea nitrogen, blood 25 mg/dL 7-18 creatinine, serum 1.30 mg/dL 0.60-1.30 alanine aminotransferase (SGPT), serum 24 U/L 12-78 aspartate aminotransferase (SGOT), serum 39 U/L 15-37 alkaline phosphatase, serum 256 U/L 50-136 calcium, serum 8.6 mg/dL 8.5-10.1 bilirubin, serum, total 0.50 mg/dL 0.00-1.00 sodium, serum 135 mmol/L 659-577 3383/10/22 potassium, serum 3.0 mmol/L 3.5-5.2 chloride, serum 93 mmol/L 98-107 carbon dioxide, venous blood 31.6 mmol/L 21.0-32 .0 blood glucose 142 mg/dL 65-110 urea nitrogen, blood 15 mg/dL 7-18 creatinine, serum 1.80 mg/dL 0.60-1.30 alanine aminotransferase (SGPT), serum 45 U/L -78 aspartate aminotransferase (SGOT), serum 48 U/L 15-37 alkaline phosphatase, serum 136 U/L 50-136 calcium, serum 8.3 mg/dL 8.5-10.1 bilirubin, serum, total 0.50 mg/dL 0.00-1.00 sodium, serum 128 mmol/L 492-017 2512/10/29 potassium, serum 2.6 mmol/L 3.5-5.2 chloride, serum 95 mmol/L 98-107 carbon dioxide, venous blood 35.6 mmol/L 21.0-32 .0 blood glucose 86 mg/dL 65-110 urea nitrogen, blood 25 mg/dL 7-18 creatinine, serum 1.50 mg/dL 0.60-1.30 alanine aminotransferase (SGPT), serum 34 U/L - aspartate aminotransferase (SGOT), serum 38 U/L 15-37 alkaline phosphatase, serum 242 U/L 50-136 calcium, serum 9.4 mg/dL 8.5-10.1 bilirubin, serum, total 0.50 mg/dL 0.00-1.00 sodium, serum 137 mmol/L 068-544 3690/11/12 potassium, serum 3.2 mmol/L 3.5-5.2 chloride, serum [...] 0.40 mg/dL 0.00-1.00 sodium, serum 138 mmol/L 864-374 1550/11/05 potassium, serum 3.9 mmol/L 3.5-5.2 chloride, serum 98 mmol/L 98-107 carbon dioxide, venous blood 36.2 mmol/L 21.0-32 .0 blood glucose 92 mg/dL 65-110 urea nitrogen, blood 23 mg/dL 7-18 creatinine, serum 1.60 mg/dL 0.60-1.30 alanine aminotransferase (SGPT), serum 29 U/L - aspartate aminotransferase (SGOT), serum 26 U/L 15-37 alkaline phosphatase, serum 195 U/L 50-136 calcium, serum 8.3 mg/dL 8.5-10.1 bilirubin, serum, total 0.40 mg/dL 0.00-1.00 sodium, serum 141 mmol/L 918-032 0918/01/14 potassium, serum 3.9 mmol/L 3.5-5.2 chloride, serum [...] 11 .6-14.8 platelet count 22 10^3/MM^3 10*3/mm3 048-978 3349/11/12 leukocyte count, blood 12.1 10^3/MM^3 10*3/mm3 4.6-10.2 [...] 11 .6-14.8 platelet count 157 10^3/MM^3 10*3/mm3 525-294 3346/11/05 leukocyte count, blood 16.4 10^3/MM^3 10*3/mm3 4.6-10.2 [...] 11 .6-14.8 platelet count 215 10^3/MM^3 10*3/mm3 128-337 9483/11/25 leukocyte count, blood 21.1 10^3/MM^3 10*3/mm3 4.6-10.2 [...] 11 .6-14.8 platelet count 46 10^3/MM^3 10*3/mm3 702-437 7981/10/22 leukocyte count, blood 14.7 10^3/MM^3 10*3/mm3 4.6-10.2 [...] 11 .6-14.8 platelet count 428 10^3/MM^3 10*3/mm3 973-672 4178/10/29 leukocyte count, blood 26.3 10^3/MM^3 10*3/mm3 4.6-10.2 [...] 11 .6-14.8 platelet count 268 10^3/MM^3 10*3/mm3 729-283 9159/12/24 leukocyte count, blood 14.0 10^3/MM^3 10*3/mm3 4.6-10.2 [...] 11 .6-14.8 platelet count 66 10^3/MM^3 10*3/mm3 867-141 7588/12/17 leukocyte count, blood 18.6 10^3/MM^3 10*3/mm3 4.6-10.2 [...] 11 .6-14.8 platelet count 75 10^3/MM^3 10*3/mm3 142-424 Lab Report: CBC W/DIFF, Manual Diff/Morp hology - Hematology leukocyte count, blood 3.6 10^3/MM^3 10*3/mm3 4.6-10.2 [...] ng/mL carcinoembryonic antigen 0.9 ng/mL carcinoembryonic antigen <0.5 ng/mL ng/mL Lab Report: cmp - Chemistry sodium, serum 142 mmol/L potassium, serum 4.0 mmol/L blood glucose 115 mg/dL creatinine, serum 1.24 mg/dL Lab Report: Comp. Metabolic Panel - Chem istry sodium, serum 141 mmol/L 265-712 0258/11/19 potassium, serum 3.9 mmol/L 3.5-5.2 chloride, serum [...] 0.50 mg/dL 0.00-1.00 sodium, serum 142 mmol/L 122-800 2841/12/10 potassium, serum 3.9 mmol/L 3.5-5.2 chloride, serum 102 mmol/L 98-107 carbon dioxide, venous blood 32.9 mmol/L 21.0-32 .0 blood glucose 86 mg/dL 65-110 urea nitrogen, blood 26 mg/dL 7-18 creatinine, serum 1.30 mg/dL 0.60-1.30 alanine aminotransferase (SGPT), serum 25 U/L 78 aspartate aminotransferase (SGOT), serum 30 U/L 15-37 alkaline phosphatase, serum 201 U/L 50-136 calcium, serum 8.5 mg/dL 8.5-10.1 bilirubin, serum, total 0.40 mg/dL 0.00-1.00 Lab Report: Comp. Metabolic Panel, CBC W /DIFF, Manual Diff/Morphology - Chemistry sodium, serum 142 mmol/L 810-540 2826/12/31 potassium, serum 3.6 mmol/L 3.5-5.2 chloride, serum [...] Panel - Chemistry cholesterol, serum 209 mg/dL 779-618 1136/09/11 triglyceride, serum, fasting 113 mg/dL 30-200 HDL cholesterol, serum 50 mg/dL 32-96 LDL cholesterol, serum 136 mg/dL 0-130 Encounters Code Encounter Date Provider Facility CPT-84162 Level 4 Est. Patient 20:04:51 CDT Hope cohn MD PhD [facility] CPT-91465 Level 3 New Patient 01:46:11 OFFICE SWEEPER Hope landers MD PhD [facility] Procedures Code Procedure Name Date Entry Date Standard Desc ription [id number] Prolia 60 mg 08:50:41 CDT CPT-88189 Abx/Therapy Injection 08:50:41 CDT CPT-35825 Bone Density 12:06:12 CDT CPT-88462 Bone Density 08:54:40 CDT CPT-OV Office Visit 15:37:02 CDT CPT-57120 Postop F/U Visit 15:47:49 CDT CPT-50304 Postop F/U Visit 15:21:02 CDT CPT-[facility] Transitional Care Mgmt-High 07:52:27 CDT 20 20/06/01 CPT-57269 Venipuncture Draw Fee 13:51:18 CDT CPT-87221 Venipuncture Draw Fee 10:14:55 OFFICE SWEEPER CPT-51653 Venipuncture Draw Fee 13:39:45 OFFICE SWEEPER CPT-OV Office Visit 15:11:22 OFFICE SWEEPER CPT-44713 Venipuncture Draw Fee 09:20:49 OFFICE SWEEPER CPT-16173 Venipuncture Draw Fee 16:52:15 OFFICE SWEEPER CPT-67661 Venipuncture Draw Fee 10:37:24 OFFICE SWEEPER CPT-42215 Venipuncture Draw Fee 08:21:21 OFFICE SWEEPER CPT-79792 Venipuncture Draw Fee 08:30:20 OFFICE SWEEPER CPT-99580 Venipuncture Draw Fee 14:53:21 OFFICE SWEEPER CPT-33386 Venipuncture Draw Fee 09:40:56 OFFICE SWEEPER CPT-52081 Venipuncture Draw Fee 10:30:47 OFFICE SWEEPER CPT-06687 Venipuncture Draw Fee 10:46:17 OFFICE SWEEPER CPT-07248 Venipuncture Draw Fee 11:12:45 OFFICE SWEEPER CPT-42622 Venipuncture Draw Fee 09:53:33 OFFICE SWEEPER CPT-96887 Venipuncture Draw Fee 11:53:51 OFFICE SWEEPER CPT-99751 Venipuncture Draw Fee 10:33:50 OFFICE SWEEPER CPT-93000 Venipuncture Draw Fee 10:05:01 OFFICE SWEEPER CPT-96713 Venipuncture Draw Fee 14:32:52 OFFICE SWEEPER CPT-50358 Venipuncture Draw Fee 09:46:13 OFFICE SWEEPER CPT-16254 Venipuncture Draw Fee 11:34:27 OFFICE SWEEPER CPT-47843 Venipuncture Draw Fee 13:17:16 OFFICE SWEEPER CPT-53925 Venipuncture Draw Fee 12:05:39 CDT CPT-54374 Venipuncture Draw Fee 12:49:12 CDT CPT-35015 Venipuncture Draw Fee 12:37:18 CDT CPT-82543 Venipuncture Draw Fee 10:57:11 CDT CPT-26064 Venipuncture Draw Fee 13:47:40 CDT CPT-49737 Venipuncture Draw Fee 10:02:17 CDT CPT-68894 TB Tubersol 17:32:32 CDT CPT-OV Office Visit 16:21:53 CDT CPT-OV Office Visit 15:49:22 CDT CPT-OV Office Visit 17:16:31 CDT CPT-OV Office Visit 10:43:31 CDT
--- OUTSIDE RECORDS SUMMARY | 2019-02-09 13:02 | XMS REPORT | Clinical Summary ---
Author Author Renaldo, Florecita Munoz Organization [facility] Address Unknown Phone Allergies, Adverse Reactions, [...] MG CAPS 1 q d FLUOXETINE HCL 98818 747525 No Longer Active Hope Benavidez MD PhD Active INNOPRAN XL 120 MG [id number] Take one by mouth daily PROPRANOLOL HCL SR BEADS 97282533283 Active Hope Benavidez MD PhD Active POTASSIUM CHLORIDE 20 MEQ PACK by mouth twice a day prn POTASSIUM CHLORIDE 27910767668 Active Adam Yates MD Activ e CYCLOBENZAPRINE HCL 10 MG TABS 1 tablet by mouth three times daily as needed for headaches CYCLOBENZAPRINE HCL 09189350687 Active Selena Yates MD Active SIMVASTATIN 40 MG TABS 1 qd SIMVASTATIN 004 63100704 No Longer Active Adam Yates MD Active MELOXICAM 15 MG TABS 1 qd MELOXICAM 8387745 5426 No Longer Active Adam Yates MD Active ATENOLOL 50 MG TABS 1/2 tab q other day ATENOLOL 72651512640 Active Hope Benavidez MD PhD Active OMEPRAZOLE 20 MG CPDR 1 tablet by mouth daily for GERD OMEPRAZOLE 55933547112 Active Hope Benavidez MD PhD Active IMODIUM A-D 2 MG TABS 2 onset at diarrhea and prn. LOPERAMIDE HCL 96491457263 Active Hope Benavidez MD PhD Active PHENADOZ 25 MG SUPP 1 every 4 hrs. PRN PROMETHAZINE HCL 67028375686 Active Hope Benavidez MD PhD Active PROMETHAZINE HCL 25 MG TABS 1 Q. 4 hr. PRN PROMETH AZINE HCL 58646081782 Active Hope Benavidez MD PhD Active EXCEDRIN EXTRA STRENGTH 250-250-65 MG TABS 1-2 q6h PRN headache 201 04/16/21 [id number] 15135773498 Active Hope Benavidez MD PhD Active ZOFRAN 4 MG TABS 1 q 6 hr prn ONDANSETRON HCL 7603245 7002 Active Fay Alberts Active FLAGYL 500 MG TABS 1 qid METRONIDAZOLE 28533 057805 No Longer Active Adam Yates MD Active LEVAQUIN 750 MG TABS 1 qd LEVOFLOXACIN 5486 5998099 No Longer Active Adam Yates MD Active DYAZIDE 37.5-25 MG CAPS 1 qd TRIAMTERENE-HCTZ 5886 9532947 Active Hope Benavidez MD PhD Active ADULT ASPIRIN LOW STRENGTH 81 MG TBDP 1 qd A SPIRIN 49776019107 Active Hope Benavidez MD PhD Active LEVAQUIN 750 MG TABS 1 qd LEVAQUIN 750 MG T ABS 155481 LEVOFLOXACIN Inactive FLAGYL 500 MG TABS 1 qid FLAGYL 500 MG TABS 637343 METRONIDAZOLE Inactive MELOXICAM 15 MG TABS 1 qd MELOXICAM 15 MG T ABS 323292 MELOXICAM Inactive SIMVASTATIN 40 MG TABS 1 qd SIMVASTATIN 40 MG TABS 654029 SIMVASTATIN Inactive PROZAC 20 MG CAPS 1 [...] - Chem istry sodium, serum 137 mmol/L 844-724 6555/11/01 potassium, serum 3.7 mmol/L 3.5-5.2 chloride, serum 100 mmol/L 98-107 carbon dioxide, venous blood 31.8 mmol/L 21.0-32 .0 blood glucose 98 mg/dL 65-110 calcium, serum 8.6 mg/dL 8.5-10.1 urea nitrogen, blood 23 mg/dL 7-18 creatinine, serum 1.50 mg/dL 0.60-1.30 sodium, serum 136 mmol/L 985-729 0156/05/02 potassium, serum 4.1 mmol/L 3.5-5.2 chloride, serum [...] 11 .6-14.8 platelet count 133 10^3/MM^3 10*3/mm3 416-363 5302/01/17 leukocyte count, blood 3.1 10^3/MM^3 10*3/mm3 4.6-10.2 [...] 11 .6-14.8 platelet count 22 10^3/MM^3 10*3/mm3 474-374 8966/11/19 leukocyte count, blood 10.4 10^3/MM^3 10*3/mm3 4.6-10.2 [...] Verified By Repeat Analysis 10^3/mm ^3 10*3/mm3 333-870 1773/12/10 leukocyte count, blood 7.8 10^3/MM^3 10*3/mm3 4.6-10.2 [...] Panel - Chemistry sodium, serum 139 mmol/L 498-782 9774/12/03 potassium, serum 3.7 mmol/L 3.5-5.2 chloride, serum [...] 0.40 mg/dL 0.00-1.00 sodium, serum 137 mmol/L 933-995 4367/10/01 potassium, serum 3.5 mmol/L 3.5-5.2 chloride, serum [...] 0.60 mg/dL 0.00-1.00 sodium, serum 136 mmol/L 095-245 2611/10/08 potassium, serum 3.1 mmol/L 3.5-5.2 chloride, serum [...] 0.60 mg/dL 0.00-1.00 sodium, serum 139 mmol/L 473-213 7033/10/17 potassium, serum 3.1 mmol/L 3.5-5.2 chloride, serum [...] 0.30 mg/dL 0.00-1.00 sodium, serum 139 mmol/L 151-639 5711/01/21 potassium, serum 3.4 mmol/L 3.5-5.2 chloride, serum [...] 0.40 mg/dL 0.00-1.00 sodium, serum 138 mmol/L 504-808 6421/01/28 potassium, serum 3.2 mmol/L 3.5-5.2 chloride, serum [...] 0.40 mg/dL 0.00-1.00 sodium, serum 140 mmol/L 580-305 0586/02/04 potassium, serum 3.6 mmol/L 3.5-5.2 chloride, serum [...] 0.70 mg/dL 0.00-1.00 sodium, serum 142 mmol/L 947-698 8124/01/03 potassium, serum 3.4 mmol/L 3.5-5.2 chloride, serum [...] 0.50 mg/dL 0.00-1.00 sodium, serum 140 mmol/L 220-132 6455/01/06 potassium, serum 3.4 mmol/L 3.5-5.2 chloride, serum [...] 0.40 mg/dL 0.00-1.00 sodium, serum 136 mmol/L 001-728 9233/04/03 potassium, serum 3.7 mmol/L 3.5-5.2 chloride, serum [...] 0.40 mg/dL 0.00-1.00 sodium, serum 136 mmol/L 870-594 5617/02/11 potassium, serum 3.1 mmol/L 3.5-5.2 chloride, serum [...] 0.50 mg/dL 0.00-1.00 sodium, serum 139 mmol/L 260-540 9341/02/18 potassium, serum 3.6 mmol/L 3.5-5.2 chloride, serum [...] 11 .6-14.8 platelet count 246 10^3/MM^3 10*3/mm3 977-804 3736/02/18 leukocyte count, blood 4.0 10^3/MM^3 10*3/mm3 4.6-10.2 [...] 11 .6-14.8 platelet count 134 10^3/MM^3 10*3/mm3 553-948 6342/01/03 leukocyte count, blood 8.1 10^3/MM^3 10*3/mm3 4.6-10.2 [...] 11 .6-14.8 platelet count 96 10^3/MM^3 10*3/mm3 757-465 3784/01/06 leukocyte count, blood 7.6 10^3/MM^3 10*3/mm3 4.6-10.2 [...] 11 .6-14.8 platelet count 132 10^3/MM^3 10*3/mm3 014-763 4235/02/11 leukocyte count, blood 4.8 10^3/MM^3 10*3/mm3 4.6-10.2 [...] 11 .6-14.8 platelet count 102 10^3/MM^3 10*3/mm3 962-468 9985/02/04 leukocyte count, blood 3.6 10^3/MM^3 10*3/mm3 4.6-10.2 [...] 11 .6-14.8 platelet count 70 10^3/MM^3 10*3/mm3 822-939 6693/01/28 leukocyte count, blood 4.2 10^3/MM^3 10*3/mm3 4.6-10.2 [...] 11 .6-14.8 platelet count 73 10^3/MM^3 10*3/mm3 936-586 6335/01/21 leukocyte count, blood 4.9 10^3/MM^3 10*3/mm3 4.6-10.2 [...] .6-14.8 platelet count 38 recounted 10^3/mm^3 10*3/mm3 078-180 9337/10/08 leukocyte count, blood 2.9 10^3/MM^3 10*3/mm3 4.6-10.2 [...] 11 .6-14.8 platelet count 229 10^3/MM^3 10*3/mm3 791-753 5388/10/17 leukocyte count, blood 12.0 10^3/MM^3 10*3/mm3 4.6-10.2 [...] 11 .6-14.8 platelet count 232 10^3/MM^3 10*3/mm3 803-187 1486/10/01 leukocyte count, blood 8.3 10^3/MM^3 10*3/mm3 4.6-10.2 [...] 11 .6-14.8 platelet count 378 10^3/MM^3 10*3/mm3 284-368 4389/12/03 leukocyte count, blood 8.2 10^3/MM^3 10*3/mm3 4.6-10.2 [...] Diff/Morphology - Chemistry sodium, serum 141 mmol/L 975-461 2849/11/25 potassium, serum 3.9 mmol/L 3.5-5.2 chloride, serum [...] 0.50 mg/dL 0.00-1.00 sodium, serum 137 mmol/L 841-914 0459/11/12 potassium, serum 3.2 mmol/L 3.5-5.2 chloride, serum [...] 0.40 mg/dL 0.00-1.00 sodium, serum 140 mmol/L 377-696 6512/12/17 potassium, serum 3.3 mmol/L 3.5-5.2 chloride, serum [...] 0.40 mg/dL 0.00-1.00 sodium, serum 138 mmol/L 644-338 1783/12/24 potassium, serum 3.7 mmol/L 3.5-5.2 chloride, serum [...] 0.50 mg/dL 0.00-1.00 sodium, serum 138 mmol/L 902-822 5871/11/05 potassium, serum 3.9 mmol/L 3.5-5.2 chloride, serum [...] 0.40 mg/dL 0.00-1.00 sodium, serum 135 mmol/L 924-312 1780/10/22 potassium, serum 3.0 mmol/L 3.5-5.2 chloride, serum [...] 0.50 mg/dL 0.00-1.00 sodium, serum 128 mmol/L 047-788 3806/10/29 potassium, serum 2.6 mmol/L 3.5-5.2 chloride, serum [...] 0.50 mg/dL 0.00-1.00 sodium, serum 141 mmol/L 937-708 6840/01/14 potassium, serum 3.9 mmol/L 3.5-5.2 chloride, serum [...] 11 .6-14.8 platelet count 22 10^3/MM^3 10*3/mm3 617-443 5477/10/22 leukocyte count, blood 14.7 10^3/MM^3 10*3/mm3 4.6-10.2 [...] 11 .6-14.8 platelet count 428 10^3/MM^3 10*3/mm3 393-870 1590/10/29 leukocyte count, blood 26.3 10^3/MM^3 10*3/mm3 4.6-10.2 [...] 11 .6-14.8 platelet count 268 10^3/MM^3 10*3/mm3 515-722 7085/11/12 leukocyte count, blood 12.1 10^3/MM^3 10*3/mm3 4.6-10.2 [...] 11 .6-14.8 platelet count 157 10^3/MM^3 10*3/mm3 337-243 7162/11/05 leukocyte count, blood 16.4 10^3/MM^3 10*3/mm3 4.6-10.2 [...] 11 .6-14.8 platelet count 215 10^3/MM^3 10*3/mm3 143-465 8069/12/24 leukocyte count, blood 14.0 10^3/MM^3 10*3/mm3 4.6-10.2 [...] 11 .6-14.8 platelet count 66 10^3/MM^3 10*3/mm3 690-231 6319/12/17 leukocyte count, blood 18.6 10^3/MM^3 10*3/mm3 4.6-10.2 [...] 11 .6-14.8 platelet count 75 10^3/MM^3 10*3/mm3 491-368 3058/11/25 leukocyte count, blood 21.1 10^3/MM^3 10*3/mm3 4.6-10.2 [...] 11 .6-14.8 platelet count 413 10^3/MM^3 10*3/mm3 566-970 1828/01/16 leukocyte count, blood 3.6 10^3/MM^3 10*3/mm3 4.6-10.2 [...] - Chem istry sodium, serum 141 mmol/L 105-954 0164/11/19 potassium, serum 3.9 mmol/L 3.5-5.2 chloride, serum [...] 0.50 mg/dL 0.00-1.00 sodium, serum 142 mmol/L 029-154 4016/12/10 potassium, serum 3.9 mmol/L 3.5-5.2 chloride, serum [...] Diff/Morphology - Chemistry sodium, serum 142 mmol/L 660-205 6900/12/31 potassium, serum 3.6 mmol/L 3.5-5.2 chloride, serum [...] 3.5-5.2 Encounters Code Encounter Date Provider Facility CPT-93917 Level 3 New Patient 01:46:11 [employer] Hope landers MD PhD [facility] Procedures Code Procedure Name Date Entry Date Standard Desc ription CPT-92592 Postop F/U Visit 15:21:02 CDT CPT-TCMH Transitional Care Mgmt-High 07:52:27 CDT 20 20/06/01 CPT-18915 Venipuncture Draw Fee 13:51:18 CDT CPT-49737 Venipuncture Draw Fee 10:14:55 [employer] CPT-01104 Venipuncture Draw Fee 13:39:45 [employer] CPT-OV Office Visit 15:11:22 [employer] CPT-79944 Venipuncture Draw Fee 09:20:49 [employer] CPT-29756 Venipuncture Draw Fee 16:52:15 [employer] CPT-38582 Venipuncture Draw Fee 10:37:24 [employer] CPT-47946 Venipuncture Draw Fee 08:21:21 [employer] CPT-21876 Venipuncture Draw Fee 08:30:20 [employer] CPT-43455 Venipuncture Draw Fee 14:53:21 [employer] CPT-04944 Venipuncture Draw Fee 09:40:56 [employer] CPT-86585 Venipuncture Draw Fee 10:30:47 [employer] CPT-61742 Venipuncture Draw Fee 10:46:17 [employer] CPT-28281 Venipuncture Draw Fee 11:12:45 [employer] CPT-35965 Venipuncture Draw Fee 09:53:33 [employer] CPT-26508 Venipuncture Draw Fee 11:53:51 [employer] CPT-95506 Venipuncture Draw Fee 10:33:50 [employer] CPT-58548 Venipuncture Draw Fee 10:05:01 [employer] CPT-04574 Venipuncture Draw Fee 14:32:52 [employer] CPT-91218 Venipuncture Draw Fee 09:46:13 [employer] CPT-30668 Venipuncture Draw Fee 11:34:27 [employer] CPT-05199 Venipuncture Draw Fee 13:17:16 [employer] CPT-12425 Venipuncture Draw Fee 12:05:39 CDT CPT-56784 Venipuncture Draw Fee 12:49:12 CDT CPT-07212 Venipuncture Draw Fee 12:37:18 CDT CPT-24648 Venipuncture Draw Fee 10:57:11 CDT CPT-03217 Venipuncture Draw Fee 13:47:40 CDT CPT-23198 Venipuncture Draw Fee 10:02:17 CDT CPT-17264 TB Tubersol 17:32:32 CDT CPT-OV Office Visit 16:21:53 CDT CPT-OV Office Visit 15:49:22 CDT CPT-OV Office Visit 17:16:31 CDT CPT-OV Office Visit 10:43:31 CDT
--- OUTSIDE RECORDS SUMMARY | 2019-02-09 13:03 | XMS REPORT | Clinical Summary ---
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 Dick Yates [...] Generic Name NDC Status Provider Patient Instruction CYANOCOBALAMIN 1000 MCG/ML INJ SOLN 1 injection every 2 weeks 01/09 CYANOCOBALAMIN 88824700521 Active Laura Elder Active VITAMIN D3 4000 IU 1 tab 3 times daily VITAMIN D3 400 0 IU Active Hope Benavidez MD PhD Active BACTRIM DS 800-160 MG TABS 1 pill by mouth twice daily, for UTI SULFAMETHOXAZOLE-TRIMETHOPRIM 32924051081 No Longer Active A attila Benavidez MD PhD Active PROLIA 60 MG/ML SOLN 1 shot every 6 months for osteoprosis DENOSUMAB 23030502818 Active Hope Benavidez MD PhD Active CALCIUM + D + K 750-500-40 MG-UNT-MCG TABS 1 tab by mouth tw ice daily CALCIUM-VITAMIN D-VITAMIN K 55940899056 Active Hope landers MD PhD Active DAILY VALUE MULTIVITAMIN TABS 1 tab by mouth twice daily MULTIPLE VITAMIN 48552413128 Active Hope Benavidez MD PhD Active FISH OIL 306 MG CAPS 1 tab by mouth three times daily OMEGA-3 FATTY ACIDS 66658776384 Active Hope Benavidez MD PhD Active LUTEIN 10 MG TABS 1 tab daily LUTEIN 58814218125 Act cash Hope Benavidez MD PhD Active FLORANEX PACK 1 pack three times daily, for bowel health LACTOBACILLUS 22824526538 Active Hope Benavidez MD PhD Active LOMOTIL 2.5-0.025 MG TABS 1 tab by mouth prn DIPHENOXYLATE-ATROPINE 04926077611 Active Hope Benavidez MD PhD Active TRIAMTERENE-HCTZ 37.5-25 MG TABS 1 tab by mouth daily TRIAMTERENE-HCTZ 62104361716 Active Hope Benavidez MD PhD Acti ve IRON 325 (65 FE) MG TABS 1 tab daily FERROUS SULF ATE 21085600401 Active Hope Benavidez MD PhD Active MAGNESIUM GLUCONATE 250 MG TABS 1 tab tid MAGN ESIUM GLUCONATE 88537822012 Active Adam Yates MD Active ATENOLOL 50 MG TABS 1/2 tab q other day m-w-f ATE NOLOL 59437131547 Active Hope Benavidez MD PhD Active PROPRANOLOL HCL 80 MG TABS 1 tab tue. and thur. PROPRANOLOL HCL 47479221336 Active Adam Yates MD Active CYCLOBENZAPRINE HCL 10 MG TABS 1 tablet by mouth three times daily as needed for headaches CYCLOBENZAPRINE HCL 24938753159 No Longe r Active Adam Yates MD Active OMEPRAZOLE 20 MG CPDR 1 tablet by mouth daily for GERD OMEPRAZOLE 94137226922 No Longer Active Adam Yates MD A ctive ZOFRAN 8 MG TABS 1 tab by mouth every 12 hours prn 201 05/16/09 ONDANSETRON HCL 46749746259 No Longer Active Adam Yates MD Active PHENADOZ 25 MG SUPP 1 every 4 hrs. PRN PROMETHA ZINE HCL 76289070387 No Longer Active Adam Yates MD Active POTASSIUM CHLORIDE 20 MEQ PACK by mouth twice a day prn POTASSIUM CHLORIDE 59437743680 No Longer Active Adam Yates MD Active PROMETHAZINE HCL 25 MG TABS 1 Q. 4 hr. PRN PROM ETHAZINE HCL 84347222998 No Longer Active Adam Yates MD Active INNOPRAN XL 120 MG [id number] Take one by mouth daily 2 PROPRANOLOL HCL SR BEADS 31617738436 No Longer Active Adam Yates MD A ctive FLAGYL 500 MG TABS 1 pill by mouth three times daily, for diarrh ea METRONIDAZOLE 36299539277 No Longer Active Hope Benavidez MD PhD Active DYAZIDE 37.5-25 MG CAPS 1 qd TRIAMTERENE-HC TZ 56119652206 No Longer Active Hope Benavidez MD PhD Active PROZAC 20 MG CAPS 1 q d FLUOXETINE HCL 83858 808173 No Longer Active Hope Benavidez MD PhD Active SIMVASTATIN 40 MG TABS 1 qd SIMVASTATIN 004 86798094 No Longer Active Adam Yates MD Active MELOXICAM 15 MG TABS 1 qd MELOXICAM 6412641 9816 No Longer Active Adam Yates MD Active IMODIUM A-D 2 MG TABS 2 onset at diarrhea and prn. LOPERAMIDE HCL 87658873138 Active Hope Benavidez MD PhD Active EXCEDRIN EXTRA STRENGTH 250-250-65 MG TABS 1-2 q6h PRN headache 201 04/16/21 [id number] 74275694196 Active Hpoe Benavidez MD PhD Active FLAGYL 500 MG TABS 1 qid METRONIDAZOLE 11492 053091 No Longer Active Adam Yates MD Active LEVAQUIN 750 MG TABS 1 qd LEVOFLOXACIN 5486 1385995 No Longer Active Adam Yates MD Active ADULT ASPIRIN LOW STRENGTH 81 MG TBDP 1 qd A SPIRIN 56856793353 Active Hope Benavidez MD PhD Active LEVAQUIN 750 MG TABS 1 qd LEVAQUIN 750 MG T ABS 703991 LEVOFLOXACIN Inactive FLAGYL 500 MG TABS 1 qid FLAGYL 500 MG TABS 230618 METRONIDAZOLE Inactive MELOXICAM 15 MG TABS 1 qd MELOXICAM 15 MG T ABS 698300 MELOXICAM Inactive SIMVASTATIN 40 MG TABS 1 qd SIMVASTATIN 40 MG TABS 536135 SIMVASTATIN Inactive PROZAC 20 MG CAPS 1 q d PROZAC 20 MG CAPS 31 0385 FLUOXETINE HCL Inactive DYAZIDE 37.5-25 MG CAPS 1 qd DYAZIDE 37.5 -25 MG CAPS 398719 TRIAMTERENE-HCTZ Inactive INNOPRAN XL 120 MG [id number] Take one by mouth daily 2 INNOPRAN XL 120 MG [id number] PROPRANOLOL HCL SR BEADS Inactive PROMETHAZINE HCL 25 MG TABS 1 Q. 4 hr. PRN PROMETHAZINE HCL 25 MG TABS 458094 PROMETHAZINE HCL Inactive POTASSIUM CHLORIDE 20 MEQ PACK by mouth twice a day prn POTASSIUM CHLORIDE 20 MEQ PACK 571178 POTASSIUM CHLORIDE Inactive PHENADOZ 25 MG SUPP 1 every 4 hrs. PRN PHENADOZ 2 5 MG SUPP 288698 PROMETHAZINE HCL Inactive ZOFRAN 8 MG TABS 1 tab by mouth every 12 hours prn 201 05/16/09 ZOFRAN 8 MG TABS 679117 ONDANSETRON HCL Inactive OMEPRAZOLE 20 MG CPDR 1 tablet by mouth daily for GERD OMEPRAZOLE 20 MG CPDR 106053 OMEPRAZOLE Inactive CYCLOBENZAPRINE HCL 10 MG TABS 1 tablet by mouth three times daily as needed for headaches CYCLOBENZAPRINE HCL 10 MG TABS 918653 CYCLOBENZAPRINE HCL Inactive FLAGYL 500 MG TABS 1 pill by mouth three times daily, for diarrh ea FLAGYL 500 MG TABS 358045 METRONIDAZOLE Inactive BACTRIM DS 800-160 MG TABS [...] Range Description blood pressure, diastolic - 8462-4 64 mm[Hg] [...] Range Description Chart Maintenance: labs added to [employer] [facility] - Chemistry magnesium, serum 2.0 mg/dL Chart Maintenance: Outside labs entered on [facility] - Chemistry sodium, serum 139 mmol/L potassium, serum 3.9 mmol/L blood glucose 85 mg/dL creatinine, serum 1.26 mg/dL aspartate aminotransferase (SGOT), serum 33 U/L alanine aminotransferase (SGPT), serum 44 U/L alkaline phosphatase, serum 127 U/L Chart Maintenance: Outside labs entered on [employer] - Hematology leukocyte count, blood 4.6 10*3/mm3 hemoglobin, blood 13.6 g/dL platelet count 162 10*3/mm3 Lab Report: Basic Metabolic Panel - Chem istry sodium, serum 136 mmol/L 304-598 2245/05/02 potassium, serum 4.1 mmol/L 3.5-5.2 chloride, serum 99 mmol/L 98-107 carbon dioxide, venous blood 30.7 mmol/L 21.0-32 .0 blood glucose 79 mg/dL 65-110 calcium, serum 8.7 mg/dL 8.5-10.1 urea nitrogen, blood 11 mg/dL 7-18 creatinine, serum 1.10 mg/dL 0.60-1.30 Lab Report: [facility] - Chemistry sodium, serum 141 mmol/L potassium, serum 4.2 mmol/L blood glucose 66 mg/dL creatinine, serum 1.16 mg/dL Lab Report: CBC W/ DIFF, [facility] - Chemistry sodium, serum 137 mmol/L potassium, serum 3.8 mmol/L blood glucose 79 mg/dL creatinine, serum 1.02 mg/dL magnesium, serum 1.2 mg/dL Lab Report: CBC W/ DIFF, [facility] - Hematology leukocyte count, blood 8.7 10*3/mm3 hemoglobin, blood 10.8 g/dL platelet count 319 10*3/mm3 Lab Report: CBC W/DIFF, Comp. Metabolic Panel - Chemistry sodium, serum 138 mmol/L 544-995 2590/08/14 potassium, serum 4.0 mmol/L 3.5-5.2 chloride, serum [...] serum, total 0.40 mg/dL 0.00-1.00 sodium, serum 139 mmol/L 604-408 9101/02/18 potassium, serum 3.6 mmol/L 3.5-5.2 chloride, serum 98 mmol/L 98-107 carbon dioxide, venous blood 33.2 mmol/L 21.0-32 .0 blood glucose 93 mg/dL 65-110 urea nitrogen, blood 13 mg/dL 7-18 creatinine, serum 1.00 mg/dL 0.60-1.30 alanine aminotransferase (SGPT), serum 12 U/L -78 aspartate aminotransferase (SGOT), serum 16 U/L 15-37 alkaline phosphatase, serum 97 U/L 50-136 calcium, serum 8.6 mg/dL 8.5-10.1 bilirubin, serum, total 0.50 mg/dL 0.00-1.00 sodium, serum 138 mmol/L 706-698 7537/01/28 potassium, serum 3.2 mmol/L 3.5-5.2 sodium, serum 136 mmol/L 597-320 8841/04/03 potassium, serum 3.7 mmol/L 3.5-5.2 chloride, serum [...] serum, total 0.40 mg/dL 0.00-1.00 sodium, serum 139 mmol/L 817-019 2453/01/21 potassium, serum 3.4 mmol/L 3.5-5.2 chloride, serum 99 mmol/L 98-107 carbon dioxide, venous blood 32.2 mmol/L 21.0-32 .0 blood glucose 113 mg/dL 65-110 urea nitrogen, blood 21 mg/dL 7-18 creatinine, serum 1.40 mg/dL 0.60-1.30 alanine aminotransferase (SGPT), serum 24 U/L -78 aspartate aminotransferase (SGOT), serum 24 U/L 15-37 alkaline phosphatase, serum 138 U/L 50-136 calcium, serum 9.1 mg/dL 8.5-10.1 bilirubin, serum, total 0.40 mg/dL 0.00-1.00 chloride, serum 97 mmol/L 98-107 carbon dioxide, venous blood 27.8 mmol/L 21.0-32 .0 blood glucose 97 mg/dL 65-110 urea nitrogen, blood 16 mg/dL 7-18 creatinine, serum 1.30 mg/dL 0.60-1.30 alanine aminotransferase (SGPT), serum 13 U/L -78 aspartate aminotransferase (SGOT), serum 16 U/L 15-37 alkaline phosphatase, serum 128 U/L 50-136 calcium, serum 9.3 mg/dL 8.5-10.1 bilirubin, serum, total 0.40 mg/dL 0.00-1.00 sodium, serum 140 mmol/L 186-861 6470/02/04 potassium, serum 3.6 mmol/L 3.5-5.2 chloride, serum 100 mmol/L 98-107 carbon dioxide, venous blood 32.9 mmol/L 21.0-32 .0 blood glucose 93 mg/dL 65-110 urea nitrogen, blood 15 mg/dL 7-18 creatinine, serum 1.00 mg/dL 0.60-1.30 alanine aminotransferase (SGPT), serum 14 U/L 12-78 aspartate aminotransferase (SGOT), serum 17 U/L 15-37 alkaline phosphatase, serum 118 U/L 50-136 calcium, serum 9.1 mg/dL 8.5-10.1 bilirubin, serum, total 0.70 mg/dL 0.00-1.00 sodium, serum 136 mmol/L 704-871 4952/02/11 potassium, serum 3.1 mmol/L 3.5-5.2 chloride, serum 97 mmol/L 98-107 carbon dioxide, venous blood 31.8 mmol/L 21.0-32 .0 blood glucose 99 mg/dL 65-110 urea nitrogen, blood 20 mg/dL 7-18 creatinine, serum 0.90 mg/dL 0.60-1.30 alanine aminotransferase (SGPT), serum 11 U/L 12-78 aspartate aminotransferase (SGOT), serum 15 U/L 15-37 alkaline phosphatase, serum 106 U/L 50-136 calcium, serum 8.7 mg/dL 8.5-10.1 bilirubin, serum, total 0.50 mg/dL 0.00-1.00 Lab Report: CBC W/DIFF, Comp. Metabolic Panel - Hematology leukocyte count, blood 4.0 10^3/MM^3 10*3/mm3 4.6-10.2 [...] 11 .6-14.8 platelet count 134 10^3/MM^3 10*3/mm3 454-943 6800/02/11 leukocyte count, blood 4.8 10^3/MM^3 10*3/mm3 4.6-10.2 [...] 11 .6-14.8 platelet count 102 10^3/MM^3 10*3/mm3 682-982 1555/02/04 leukocyte count, blood 3.6 10^3/MM^3 10*3/mm3 4.6-10.2 [...] 11 .6-14.8 platelet count 70 10^3/MM^3 10*3/mm3 620-085 4973/01/28 leukocyte count, blood 4.2 10^3/MM^3 10*3/mm3 4.6-10.2 [...] 11 .6-14.8 platelet count 73 10^3/MM^3 10*3/mm3 555-345 9122/01/21 erythrocyte (RBC) count 2.40 10^6/MM^3 10*6/mm3 4.04-5.4 8 lymphocytes as percent of blood leukocytes 17.1 % 20.5-51.1 monocytes as percent of blood leukocytes 11.7 % 1.7-9.3 neutrophils as percent of blood leukocytes 69.6 % 42.2-75.2 leukocyte count, blood 4.9 10^3/MM^3 10*3/mm3 4.6-10.2 hemoglobin, blood 8.2 g/dL 12.0-16.0 hematocrit, blood 25.1 % 36.0-46.0 mean corpuscular volume, RBC 105 fL 80-97 mean corpuscular hemoglobin, RBC 34.4 pg 27. 0-31.2 mean corpuscular hemoglobin concentration, RBC 32.9 G/DL % 31.8-35.4 red blood cell distribution width 20.8 % 11 .6-14.8 platelet count 38 recounted 10^3/mm^3 10*3/mm3 024-422 4254/04/03 leukocyte count, blood 5.6 10^3/MM^3 10*3/mm3 4.6-10.2 [...] 11 .6-14.8 platelet count 246 10^3/MM^3 10*3/mm3 424-834 3796/08/14 leukocyte count, blood 5.8 10^3/MM^3 10*3/mm3 4.6-10.2 [...] antigen 0.9 ng/mL carcinoembryonic antigen 0.7 ng/mL Lab Report: cmp - Chemistry sodium, serum 142 mmol/L potassium, serum 4.0 mmol/L blood glucose 115 mg/dL creatinine, serum 1.24 mg/dL Lab Report: Hemoglobin - Hematology hemoglobin, blood 11.2 g/dL 12.0-16.0 Lab Report: Lipid Panel - Chemistry cholesterol, serum 209 mg/dL 055-572 8290/09/11 triglyceride, serum, fasting 113 mg/dL 30-200 HDL [...] semiquantitative 7.0 5.0-8.5 Lab Report: VITAMIN D, 25-HYDROXY/68444, MAGNESIUM/622 - Chemistry vitamin D 25-hydroxy, serum 41 ng/mL 30-100 Encounters Code Encounter Date Provider Facility CPT-01366 Level 4 Est. Patient 19:08:42 [employer] Hope cohn MD PhD [facility] CPT-62663 Level 4 Est. Patient 20:04:51 CDT Hope cohn MD PhD [facility] CPT-95807 Level 3 New Patient 01:46:11 [employer] Hope landers MD PhD [facility] Procedures Code Procedure Name Date Entry Date Standard Desc ription CPT-J3420 Vitamin B12 1000mcg (Cyanocobalamin) 09:15:54 [employer] CPT-41735 Abx/Therapy Injection 09:15:54 [employer] CPT-J3420 Vitamin B12 1000mcg (Cyanocobalamin) 09:46:44 [employer] CPT-27574 Abx/Therapy Injection 09:46:44 [employer] CPT-J3420 Vitamin B12 1000mcg (Cyanocobalamin) 09:47:34 [employer] CPT-12063 Abx/Therapy Injection 09:47:34 [employer] CPT-J3420 Vitamin B12 1000mcg (Cyanocobalamin) 14:35:50 [employer] CPT-J3420 Vitamin B12 1000mcg (Cyanocobalamin) 09:25:05 [employer] CPT-44040 Abx/Therapy Injection 09:25:05 [employer] CPT-G0008 Administration of Influenza Virus Vaccine 13:36:47 CDT CPT-49260 Fluzone High-Dose Intramuscular Suspension 11/15 13:36:47 CDT CPT-J0897 Prolia 60 mg 08:50:41 CDT CPT-01354 Abx/Therapy Injection 08:50:41 CDT CPT-65646 Bone Density 12:06:12 CDT CPT-66940 Bone Density 08:54:40 CDT CPT-OV Office Visit 15:37:02 CDT CPT-93851 Postop F/U Visit 15:47:49 CDT CPT-36520 Postop F/U Visit 15:21:02 CDT CPT-TCMH Transitional Care Mgmt-High 07:52:27 CDT 20 20/06/01 CPT-31251 Venipuncture Draw Fee 13:51:18 CDT CPT-85849 Venipuncture Draw Fee 10:14:55 [employer] CPT-09604 Venipuncture Draw Fee 13:39:45 [employer] CPT-OV Office Visit 15:11:22 [employer] CPT-43881 Venipuncture Draw Fee 09:20:49 [employer] CPT-45968 Venipuncture Draw Fee 16:52:15 [employer] CPT-60600 Venipuncture Draw Fee 10:37:24 [employer] CPT-96469 Venipuncture Draw Fee 08:21:21 [employer] CPT-25068 Venipuncture Draw Fee 08:30:20 [employer] CPT-21633 Venipuncture Draw Fee 14:53:21 [employer] CPT-52945 Venipuncture Draw Fee 09:40:56 [employer] CPT-18522 Venipuncture Draw Fee 10:30:47 [employer] CPT-64844 Venipuncture Draw Fee 10:46:17 [employer] CPT-99304 Venipuncture Draw Fee 11:12:45 [employer] CPT-44639 Venipuncture Draw Fee 09:53:33 [employer] CPT-60257 Venipuncture Draw Fee 11:53:51 [employer] CPT-92880 Venipuncture Draw Fee 10:33:50 [employer] CPT-61177 Venipuncture Draw Fee 10:05:01 [employer] CPT-48941 Venipuncture Draw Fee 14:32:52 [employer] CPT-65653 Venipuncture Draw Fee 09:46:13 [employer] CPT-11763 Venipuncture Draw Fee 11:34:27 [employer] CPT-49140 Venipuncture Draw Fee 13:17:16 [employer] CPT-55769 Venipuncture Draw Fee 12:05:39 CDT CPT-67400 Venipuncture Draw Fee 12:49:12 CDT CPT-50072 Venipuncture Draw Fee 12:37:18 CDT CPT-32647 Venipuncture Draw Fee 10:57:11 CDT CPT-78951 Venipuncture Draw Fee 13:47:40 CDT CPT-67121 Venipuncture Draw Fee 10:02:17 CDT CPT-27767 TB Tubersol 17:32:32 CDT CPT-OV Office Visit 16:21:53 CDT CPT-OV Office Visit 15:49:22 CDT CPT-OV Office Visit 17:16:31 CDT CPT-OV Office Visit 10:43:31 CDT
--- OUTSIDE RECORDS SUMMARY | 2019-02-09 13:03 | XMS REPORT | Clinical Summary ---
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 Inac tive Hope Benavidez MD PhD Hyperkalemia ICD-276.7 Inactive Hope Benavidez MD PhD Health maintenance exam ICD-V70.0 Bam Yates MD Medication List Medication Instructions Start Date Stop Date Generic Name [facility] Status Provider Patient Instruction PROZAC 20 MG CAPS 1 q d FLUOXETINE HCL 75614 [id number] No Longer Active Hope Benavidez MD PhD Active INNOPRAN XL 120 MG [id number] Take one by mouth daily PROPRANOLOL HCL SR BEADS 99284794034 Active Hope Benavidez MD PhD Active POTASSIUM CHLORIDE 20 MEQ PACK by mouth twice a day prn POTASSIUM CHLORIDE 30545243640 Active Adam Yates MD Activ e CYCLOBENZAPRINE HCL 10 MG TABS 1 tablet by mouth three times daily as needed for headaches CYCLOBENZAPRINE HCL 86440227172 Active Selena Yates MD Active SIMVASTATIN 40 MG TABS 1 qd SIMVASTATIN 004 11211867 No Longer Active Adam Yates MD Active MELOXICAM 15 MG TABS 1 qd MELOXICAM 3455247 6313 No Longer Active Adam Yates MD Active ATENOLOL 50 MG TABS 1/2 tab q other day ATENOLOL 44848037151 Active Hope Benavidez MD PhD Active OMEPRAZOLE 20 MG CPDR 1 tablet by mouth daily for GERD OMEPRAZOLE 54197034207 Active Hope Benavidez MD PhD Active IMODIUM A-D 2 MG TABS 2 onset at diarrhea and prn. LOPERAMIDE HCL 01814726504 Active Hope Benavidez MD PhD Active PHENADOZ 25 MG SUPP 1 every 4 hrs. PRN PROMETHAZINE HCL 90939965257 Active Hope Benavidez MD PhD Active PROMETHAZINE HCL 25 MG TABS 1 Q. 4 hr. PRN PROMETH AZINE HCL 95666762486 Active Hope Benavidez MD PhD Active EXCEDRIN EXTRA STRENGTH 250-250-65 MG TABS 1-2 q6h PRN headache 201 04/16/21 [id number] 06236538796 Active Hope Benavidez MD PhD Active ZOFRAN 4 MG TABS 1 q 6 hr prn ONDANSETRON HCL 5320407 7002 Active Fay Alberts Active FLAGYL 500 MG TABS 1 qid METRONIDAZOLE 84334 716606 No Longer Active Adam Yates MD Active LEVAQUIN 750 MG TABS 1 qd LEVOFLOXACIN 5486 4765018 No Longer Active Adam Yates MD Active DYAZIDE 37.5-25 MG CAPS 1 qd TRIAMTERENE-HCTZ 5886 0953066 Active Hope Benavidez MD PhD Active ADULT ASPIRIN LOW STRENGTH 81 MG TBDP 1 qd A SPIRIN 71837431616 Active Hope Benavidez MD PhD Active LEVAQUIN 750 MG TABS 1 qd LEVAQUIN 750 MG T ABS 472064 LEVOFLOXACIN Inactive FLAGYL 500 MG TABS 1 qid FLAGYL 500 MG TABS 490371 METRONIDAZOLE Inactive MELOXICAM 15 MG TABS 1 qd MELOXICAM 15 MG T ABS 106714 MELOXICAM Inactive SIMVASTATIN 40 MG TABS 1 qd SIMVASTATIN 40 MG TABS 498582 SIMVASTATIN Inactive PROZAC 20 MG CAPS 1 [...] - Chem istry sodium, serum 137 mmol/L 416-750 0111/11/01 potassium, serum 3.7 mmol/L 3.5-5.2 chloride, serum 100 mmol/L 98-107 carbon dioxide, venous blood 31.8 mmol/L 21.0-32 .0 blood glucose 98 mg/dL 65-110 calcium, serum 8.6 mg/dL 8.5-10.1 urea nitrogen, blood 23 mg/dL 7-18 creatinine, serum 1.50 mg/dL 0.60-1.30 sodium, serum 136 mmol/L 857-971 2518/05/02 potassium, serum 4.1 mmol/L 3.5-5.2 chloride, serum [...] 11 .6-14.8 platelet count 133 10^3/MM^3 10*3/mm3 399-791 5999/01/17 leukocyte count, blood 3.1 10^3/MM^3 10*3/mm3 4.6-10.2 [...] 11 .6-14.8 platelet count 22 10^3/MM^3 10*3/mm3 004-681 7576/11/19 leukocyte count, blood 10.4 10^3/MM^3 10*3/mm3 4.6-10.2 [...] Verified By Repeat Analysis 10^3/mm ^3 10*3/mm3 938-578 8101/12/10 leukocyte count, blood 7.8 10^3/MM^3 10*3/mm3 4.6-10.2 [...] Panel - Chemistry sodium, serum 139 mmol/L 941-906 7430/12/03 potassium, serum 3.7 mmol/L 3.5-5.2 chloride, serum [...] 0.40 mg/dL 0.00-1.00 sodium, serum 137 mmol/L 189-495 6341/10/01 potassium, serum 3.5 mmol/L 3.5-5.2 chloride, serum [...] 0.60 mg/dL 0.00-1.00 sodium, serum 136 mmol/L 489-284 1312/10/08 potassium, serum 3.1 mmol/L 3.5-5.2 chloride, serum [...] 0.60 mg/dL 0.00-1.00 sodium, serum 139 mmol/L 879-453 1832/10/17 potassium, serum 3.1 mmol/L 3.5-5.2 chloride, serum [...] 0.30 mg/dL 0.00-1.00 sodium, serum 139 mmol/L 137-098 3664/01/21 potassium, serum 3.4 mmol/L 3.5-5.2 chloride, serum [...] 0.40 mg/dL 0.00-1.00 sodium, serum 138 mmol/L 472-059 4673/01/28 potassium, serum 3.2 mmol/L 3.5-5.2 chloride, serum [...] 0.40 mg/dL 0.00-1.00 sodium, serum 140 mmol/L 065-678 4443/02/04 potassium, serum 3.6 mmol/L 3.5-5.2 chloride, serum [...] 0.70 mg/dL 0.00-1.00 sodium, serum 142 mmol/L 974-007 1800/01/03 potassium, serum 3.4 mmol/L 3.5-5.2 chloride, serum [...] 0.50 mg/dL 0.00-1.00 sodium, serum 140 mmol/L 117-209 6318/01/06 potassium, serum 3.4 mmol/L 3.5-5.2 chloride, serum [...] 0.40 mg/dL 0.00-1.00 sodium, serum 136 mmol/L 920-665 9644/04/03 potassium, serum 3.7 mmol/L 3.5-5.2 chloride, serum [...] 0.40 mg/dL 0.00-1.00 sodium, serum 136 mmol/L 850-544 8987/02/11 potassium, serum 3.1 mmol/L 3.5-5.2 chloride, serum [...] 0.50 mg/dL 0.00-1.00 sodium, serum 139 mmol/L 409-344 0321/02/18 potassium, serum 3.6 mmol/L 3.5-5.2 chloride, serum [...] 11 .6-14.8 platelet count 246 10^3/MM^3 10*3/mm3 015-489 9442/02/18 leukocyte count, blood 4.0 10^3/MM^3 10*3/mm3 4.6-10.2 [...] 11 .6-14.8 platelet count 134 10^3/MM^3 10*3/mm3 106-140 6107/01/03 leukocyte count, blood 8.1 10^3/MM^3 10*3/mm3 4.6-10.2 [...] 11 .6-14.8 platelet count 96 10^3/MM^3 10*3/mm3 422-110 8607/01/06 leukocyte count, blood 7.6 10^3/MM^3 10*3/mm3 4.6-10.2 [...] 11 .6-14.8 platelet count 132 10^3/MM^3 10*3/mm3 212-542 4796/02/11 leukocyte count, blood 4.8 10^3/MM^3 10*3/mm3 4.6-10.2 [...] 11 .6-14.8 platelet count 102 10^3/MM^3 10*3/mm3 104-918 6178/02/04 leukocyte count, blood 3.6 10^3/MM^3 10*3/mm3 4.6-10.2 [...] 11 .6-14.8 platelet count 70 10^3/MM^3 10*3/mm3 860-823 2048/01/28 leukocyte count, blood 4.2 10^3/MM^3 10*3/mm3 4.6-10.2 [...] 11 .6-14.8 platelet count 73 10^3/MM^3 10*3/mm3 547-117 6395/01/21 leukocyte count, blood 4.9 10^3/MM^3 10*3/mm3 4.6-10.2 [...] .6-14.8 platelet count 38 recounted 10^3/mm^3 10*3/mm3 819-352 5849/10/08 leukocyte count, blood 2.9 10^3/MM^3 10*3/mm3 4.6-10.2 [...] 11 .6-14.8 platelet count 229 10^3/MM^3 10*3/mm3 608-787 8409/10/17 leukocyte count, blood 12.0 10^3/MM^3 10*3/mm3 4.6-10.2 [...] 11 .6-14.8 platelet count 232 10^3/MM^3 10*3/mm3 556-828 0598/10/01 leukocyte count, blood 8.3 10^3/MM^3 10*3/mm3 4.6-10.2 [...] 11 .6-14.8 platelet count 378 10^3/MM^3 10*3/mm3 097-084 1693/12/03 leukocyte count, blood 8.2 10^3/MM^3 10*3/mm3 4.6-10.2 [...] Diff/Morphology - Chemistry sodium, serum 141 mmol/L 743-610 4791/11/25 potassium, serum 3.9 mmol/L 3.5-5.2 chloride, serum [...] 0.50 mg/dL 0.00-1.00 sodium, serum 137 mmol/L 661-562 0447/11/12 potassium, serum 3.2 mmol/L 3.5-5.2 chloride, serum [...] 0.40 mg/dL 0.00-1.00 sodium, serum 140 mmol/L 932-234 4420/12/17 potassium, serum 3.3 mmol/L 3.5-5.2 chloride, serum [...] 0.40 mg/dL 0.00-1.00 sodium, serum 138 mmol/L 501-923 9322/12/24 potassium, serum 3.7 mmol/L 3.5-5.2 chloride, serum [...] 0.50 mg/dL 0.00-1.00 sodium, serum 138 mmol/L 418-926 6895/11/05 potassium, serum 3.9 mmol/L 3.5-5.2 chloride, serum [...] 0.40 mg/dL 0.00-1.00 sodium, serum 135 mmol/L 578-509 4004/10/22 potassium, serum 3.0 mmol/L 3.5-5.2 chloride, serum [...] 0.50 mg/dL 0.00-1.00 sodium, serum 128 mmol/L 564-435 8985/10/29 potassium, serum 2.6 mmol/L 3.5-5.2 chloride, serum [...] 0.50 mg/dL 0.00-1.00 sodium, serum 141 mmol/L 279-574 8315/01/14 potassium, serum 3.9 mmol/L 3.5-5.2 chloride, serum 101 mmol/L 98-107 carbon dioxide, venous blood 30.4 mmol/L 21.0-32 .0 blood glucose 109 mg/dL 65-110 urea nitrogen, blood 23 mg/dL 7-18 creatinine, serum 1.30 mg/dL 0.60-1.30 alanine aminotransferase (SGPT), serum 19 U/L -78 aspartate aminotransferase (SGOT), serum 28 U/L 15-37 [...] 11 .6-14.8 platelet count 22 10^3/MM^3 10*3/mm3 637-199 5135/10/22 leukocyte count, blood 14.7 10^3/MM^3 10*3/mm3 4.6-10.2 [...] 11 .6-14.8 platelet count 428 10^3/MM^3 10*3/mm3 454-963 6806/10/29 leukocyte count, blood 26.3 10^3/MM^3 10*3/mm3 4.6-10.2 [...] 11 .6-14.8 platelet count 268 10^3/MM^3 10*3/mm3 282-863 1450/11/12 leukocyte count, blood 12.1 10^3/MM^3 10*3/mm3 4.6-10.2 [...] 11 .6-14.8 platelet count 157 10^3/MM^3 10*3/mm3 693-750 4743/11/05 leukocyte count, blood 16.4 10^3/MM^3 10*3/mm3 4.6-10.2 [...] 11 .6-14.8 platelet count 215 10^3/MM^3 10*3/mm3 484-588 2950/12/24 leukocyte count, blood 14.0 10^3/MM^3 10*3/mm3 4.6-10.2 [...] 11 .6-14.8 platelet count 66 10^3/MM^3 10*3/mm3 141-254 4413/12/17 leukocyte count, blood 18.6 10^3/MM^3 10*3/mm3 4.6-10.2 [...] 11 .6-14.8 platelet count 75 10^3/MM^3 10*3/mm3 155-180 8948/11/25 leukocyte count, blood 21.1 10^3/MM^3 10*3/mm3 4.6-10.2 [...] 11 .6-14.8 platelet count 413 10^3/MM^3 10*3/mm3 827-288 6192/01/16 leukocyte count, blood 3.6 10^3/MM^3 10*3/mm3 4.6-10.2 [...] - Chem istry sodium, serum 141 mmol/L 033-573 5341/11/19 potassium, serum 3.9 mmol/L 3.5-5.2 chloride, serum [...] 0.50 mg/dL 0.00-1.00 sodium, serum 142 mmol/L 725-333 3346/12/10 potassium, serum 3.9 mmol/L 3.5-5.2 chloride, serum [...] Diff/Morphology - Chemistry sodium, serum 142 mmol/L 348-132 2415/12/31 potassium, serum 3.6 mmol/L 3.5-5.2 chloride, serum [...] 3.5-5.2 Encounters Code Encounter Date Provider Facility CPT-10688 Level 3 New Patient 01:46:11 [employer]PA[employer] Hope landers MD PhD [facility] Procedures Code Procedure Name Date Entry Date Standard Desc ription CPT-72666 Postop F/U Visit 15:21:02 CDT CPT-TCMH Transitional Care Mgmt-High 07:52:27 CDT 20 20/06/01 CPT-53361 Venipuncture Draw Fee 13:51:18 CDT CPT-07462 Venipuncture Draw Fee 10:14:55 [employer] CPT-06752 Venipuncture Draw Fee 13:39:45 [employer]PA[employer] CPT-OV Office Visit 15:11:22 [employer] CPT-45113 Venipuncture Draw Fee 09:20:49 [employer]PA[employer] CPT-93703 Venipuncture Draw Fee 16:52:15 [employer]PA[employer] CPT-67315 Venipuncture Draw Fee 10:37:24 [employer]PA[employer] CPT-81060 Venipuncture Draw Fee 08:21:21 [employer]PA[employer] CPT-50273 Venipuncture Draw Fee 08:30:20 [employer]PA[employer] CPT-02642 Venipuncture Draw Fee 14:53:21 [employer] REPA[employer] CPT-23753 Venipuncture Draw Fee 09:40:56 [employer] REPA[employer] CPT-74694 Venipuncture Draw Fee 10:30:47 [employer] REPA[employer] CPT-39241 Venipuncture Draw Fee 10:46:17 [employer] REPA[employer] CPT-45870 Venipuncture Draw Fee 11:12:45 [employer] REPA[employer] CPT-29627 Venipuncture Draw Fee 09:53:33 [employer] REPAIR[employer] CPT-01169 Venipuncture Draw Fee 11:53:51 [employer] REPA[employer] CPT-66044 Venipuncture Draw Fee 10:33:50 [employer] REPA[employer] CPT-52532 Venipuncture Draw Fee 10:05:01 [employer] REPA[employer] CPT-80518 Venipuncture Draw Fee 14:32:52 [employer] REPA[employer] CPT-75166 Venipuncture Draw Fee 09:46:13 [employer] REPA[employer] CPT-21203 Venipuncture Draw Fee 11:34:27 [employer] REPA[employer] CPT-11476 Venipuncture Draw Fee 13:17:16 [employer]PA[employer] CPT-48299 Venipuncture Draw Fee 12:05:39 CDT CPT-02591 Venipuncture Draw Fee 12:49:12 CDT CPT-92400 Venipuncture Draw Fee 12:37:18 CDT CPT-94163 Venipuncture Draw Fee 10:57:11 CDT CPT-74007 Venipuncture Draw Fee 13:47:40 CDT CPT-83237 Venipuncture Draw Fee 10:02:17 CDT CPT-66133 TB Tubersol 17:32:32 CDT CPT-OV Office Visit 16:21:53 CDT CPT-OV Office Visit 15:49:22 CDT CPT-OV Office Visit 17:16:31 CDT CPT-OV Office Visit 10:43:31 CDT
--- OUTSIDE RECORDS SUMMARY | 2019-02-09 13:04 | XMS REPORT | Clinical Summary ---
Author Author Renaldo, Florecita Munoz Organization [facility] Address Unknown Phone Unavailable Allergies, Adverse [...] (age-related) (natural) V49.8 1 Active Citlaly Roland [facility] Asymptomatic postmenopausal status (age- related) (natural) Diarrhea 787.91 Active Hope Benavidez MD PhD Diarrhea ABDOMINAL PAIN, RIGHT LOWER QUADRANT ICD-789.03 Inactive [...] Generic Name NDC Status Provider Patient Instruction CALCIUM + D + K 750-500-40 MG-UNT-MCG TABS 1 tab by mouth tw ice daily CALCIUM-VITAMIN D-VITAMIN K 61338935007 Active Hope landers MD PhD Active DAILY VALUE MULTIVITAMIN TABS 1 tab by mouth twice daily MULTIPLE VITAMIN 38447557085 Active Hope Benavidez MD PhD Active FISH OIL 306 MG CAPS 1 tab by mouth three times daily OMEGA-3 FATTY ACIDS 09710236596 Active Hope Benavidez MD PhD Active LUTEIN 10 MG TABS 1 tab daily LUTEIN 93624480210 Act cash Hope Benavidez MD PhD Active FLORANEX PACK 1 pack three times daily, for bowel health LACTOBACILLUS 21628602850 Active Hope Benavidez MD PhD Active LOMOTIL 2.5-0.025 MG TABS 1 tab by mouth prn DIPHENOXYLATE-ATROPINE 58293810134 Active Hope Benavidez MD PhD Active TRIAMTERENE-HCTZ 37.5-25 MG TABS 1 tab by mouth daily TRIAMTERENE-HCTZ 82796217341 Active Hope Benavidez MD PhD Acti ve IRON 325 (65 FE) MG TABS 1 tab daily FERROUS SULF ATE 09513794542 Active Hope Benavidez MD PhD Active MAGNESIUM GLUCONATE 250 MG TABS 1 tab tid MAGN ESIUM GLUCONATE 66565848214 Active Adam Yates MD Active ATENOLOL 50 MG TABS 1/2 tab q other day m-w-f ATE NOLOL 94239449384 Active Adam Yates MD Active PROPRANOLOL HCL 80 MG TABS 1 tab tue. and thur. PROPRANOLOL HCL 47280060629 Active Adam Yates MD Active CYCLOBENZAPRINE HCL 10 MG TABS 1 tablet by mouth three times daily as needed for headaches CYCLOBENZAPRINE HCL 22880594410 No Longe r Active Adam Yates MD Active OMEPRAZOLE 20 MG CPDR 1 tablet by mouth daily for GERD OMEPRAZOLE 21430287364 No Longer Active Adam Yates MD A ctive ZOFRAN 8 MG TABS 1 tab by mouth every 12 hours prn 201 05/16/09 ONDANSETRON HCL 05693814657 No Longer Active Adam Yates MD Active PHENADOZ 25 MG SUPP 1 every 4 hrs. PRN PROMETHA ZINE HCL 06347828776 No Longer Active Adam Yates MD Active POTASSIUM CHLORIDE 20 MEQ PACK by mouth twice a day prn POTASSIUM CHLORIDE 08535926192 No Longer Active Adam Yates MD Active PROMETHAZINE HCL 25 MG TABS 1 Q. 4 hr. PRN PROM ETHAZINE HCL 81713516799 No Longer Active Adam Yates MD Active INNOPRAN XL 120 MG [id number] Take one by mouth daily 2 PROPRANOLOL HCL SR BEADS 91156042818 No Longer Active Adam Yates MD A ctive FLAGYL 500 MG TABS 1 pill by mouth three times daily, for diarrh ea METRONIDAZOLE 28318831060 No Longer Active Hope Benavidez MD PhD Active DYAZIDE 37.5-25 MG CAPS 1 qd TRIAMTERENE-HC TZ 96044245339 No Longer Active Hope Benavidez MD PhD Active PROZAC 20 MG CAPS 1 q d FLUOXETINE HCL 50993 569194 No Longer Active Hope Benavidez MD PhD Active SIMVASTATIN 40 MG TABS 1 qd SIMVASTATIN 004 46427724 No Longer Active Adam Yates MD Active MELOXICAM 15 MG TABS 1 qd MELOXICAM 0041532 4868 No Longer Active Adam Yates MD Active IMODIUM A-D 2 MG TABS 2 onset at diarrhea and prn. LOPERAMIDE HCL 13081127244 Active Hope Benavidez MD PhD Active EXCEDRIN EXTRA STRENGTH 250-250-65 MG TABS 1-2 q6h PRN headache 201 04/16/21 SHOMERI-EZCVJCBDOIONT-RAGSXDEA 35397418525 Active Hope Benavidez MD PhD Active FLAGYL 500 MG TABS 1 qid METRONIDAZOLE 74777 210396 No Longer Active Adam Yates MD Active LEVAQUIN 750 MG TABS 1 qd LEVOFLOXACIN 5486 3802407 No Longer Active Adam Yates MD Active ADULT ASPIRIN LOW STRENGTH 81 MG TBDP 1 qd A SPIRIN 01500908902 Active Hope Benavidez MD PhD Active LEVAQUIN 750 MG TABS 1 qd LEVAQUIN 750 MG T ABS 922639 LEVOFLOXACIN Inactive FLAGYL 500 MG TABS 1 qid FLAGYL 500 MG TABS 492212 METRONIDAZOLE Inactive MELOXICAM 15 MG TABS 1 qd MELOXICAM 15 MG T ABS 669487 MELOXICAM Inactive SIMVASTATIN 40 MG TABS 1 qd SIMVASTATIN 40 MG TABS 260022 SIMVASTATIN Inactive PROZAC 20 MG CAPS 1 q d PROZAC 20 MG CAPS 31 0385 FLUOXETINE HCL Inactive DYAZIDE 37.5-25 MG CAPS 1 qd DYAZIDE 37.5 -25 MG CAPS 022855 TRIAMTERENE-HCTZ Inactive INNOPRAN XL 120 MG [id number] Take one by mouth daily 2 INNOPRAN XL 120 MG [id number] PROPRANOLOL HCL SR BEADS Inactive PROMETHAZINE HCL 25 MG TABS 1 Q. 4 hr. PRN PROMETHAZINE HCL 25 MG TABS 268288 PROMETHAZINE HCL Inactive POTASSIUM CHLORIDE 20 MEQ PACK by mouth twice a day prn POTASSIUM CHLORIDE 20 MEQ PACK 167483 POTASSIUM CHLORIDE Inactive PHENADOZ 25 MG SUPP 1 every 4 hrs. PRN PHENADOZ 2 5 MG SUPP 817626 PROMETHAZINE HCL Inactive ZOFRAN 8 MG TABS 1 tab by mouth every 12 hours prn 201 05/16/09 ZOFRAN 8 MG TABS 125043 ONDANSETRON HCL Inactive OMEPRAZOLE 20 MG CPDR 1 tablet by mouth daily for GERD OMEPRAZOLE 20 MG CPDR 275595 OMEPRAZOLE Inactive CYCLOBENZAPRINE HCL 10 MG TABS 1 tablet by mouth three times daily as needed for headaches CYCLOBENZAPRINE HCL 10 MG TABS 756480 CYCLOBENZAPRINE HCL Inactive FLAGYL 500 MG TABS 1 pill by mouth three times daily, for diarrh ea FLAGYL 500 MG TABS 929532 METRONIDAZOLE Inactive Advance Directives Directive Description Start [...] Range Description blood pressure, diastolic - 8462-4 65 mm[Hg] [...] - 3141-9 125 [lb_av] Weigh t Measured Diagnostic Results Date Name Value Unit Range Description Immunizations: Immunization Administrati on PPD RESULTS - Challenge tests PPD results in mm 0mm mm Lab Report: Basic Metabolic Panel - Chem istry sodium, serum 137 mmol/L 018-875 6944/11/01 potassium, serum 3.7 mmol/L 3.5-5.2 chloride, serum 100 mmol/L 98-107 carbon dioxide, venous blood 31.8 mmol/L 21.0-32 .0 blood glucose 98 mg/dL 65-110 calcium, serum 8.6 mg/dL 8.5-10.1 urea nitrogen, blood 23 mg/dL 7-18 creatinine, serum 1.50 mg/dL 0.60-1.30 sodium, serum 136 mmol/L 697-766 6277/05/02 potassium, serum 4.1 mmol/L 3.5-5.2 chloride, serum 99 mmol/L 98-107 carbon dioxide, venous blood 30.7 mmol/L 21.0-32 .0 blood glucose 79 mg/dL 65-110 calcium, serum 8.7 mg/dL 8.5-10.1 urea nitrogen, blood 11 mg/dL 7-18 creatinine, serum 1.10 mg/dL 0.60-1.30 Lab Report: [facility] - Chemistry sodium, serum 141 mmol/L potassium, serum 4.2 mmol/L blood glucose 66 mg/dL creatinine, serum 1.16 mg/dL Lab Report: CBC W/ DIFF, [facility] - Chemistry sodium, serum 137 mmol/L potassium, serum 3.8 mmol/L blood glucose 79 mg/dL creatinine, serum 1.02 mg/dL magnesium, serum 1.2 mg/dL Lab Report: CBC W/ DIFF, [facility] - Hematology [...] 11 .6-14.8 platelet count 133 10^3/MM^3 10*3/mm3 736-966 3601/01/17 leukocyte count, blood 3.1 10^3/MM^3 10*3/mm3 4.6-10.2 [...] 11 .6-14.8 platelet count 22 10^3/MM^3 10*3/mm3 791-761 2739/11/19 leukocyte count, blood 10.4 10^3/MM^3 10*3/mm3 4.6-10.2 [...] Verified By Repeat Analysis 10^3/mm ^3 10*3/mm3 303-535 8076/12/10 leukocyte count, blood 7.8 10^3/MM^3 10*3/mm3 4.6-10.2 [...] Panel - Chemistry sodium, serum 139 mmol/L 985-455 9251/12/03 potassium, serum 3.7 mmol/L 3.5-5.2 chloride, serum [...] 0.40 mg/dL 0.00-1.00 sodium, serum 142 mmol/L 978-225 5729/01/03 potassium, serum 3.4 mmol/L 3.5-5.2 chloride, serum [...] 0.50 mg/dL 0.00-1.00 sodium, serum 137 mmol/L 750-043 8068/10/01 potassium, serum 3.5 mmol/L 3.5-5.2 chloride, serum [...] 0.60 mg/dL 0.00-1.00 sodium, serum 136 mmol/L 453-129 2054/10/08 potassium, serum 3.1 mmol/L 3.5-5.2 chloride, serum [...] 0.60 mg/dL 0.00-1.00 sodium, serum 139 mmol/L 743-554 1371/10/17 potassium, serum 3.1 mmol/L 3.5-5.2 chloride, serum [...] serum, total 0.30 mg/dL 0.00-1.00 sodium, serum 140 mmol/L 344-821 6549/01/06 potassium, serum 3.4 mmol/L 3.5-5.2 chloride, serum [...] 0.40 mg/dL 0.00-1.00 sodium, serum 139 mmol/L 781-082 6344/01/21 potassium, serum 3.4 mmol/L 3.5-5.2 chloride, serum [...] 0.40 mg/dL 0.00-1.00 sodium, serum 138 mmol/L 776-473 2000/01/28 potassium, serum 3.2 mmol/L 3.5-5.2 chloride, serum [...] 0.40 mg/dL 0.00-1.00 sodium, serum 140 mmol/L 149-023 5391/02/04 potassium, serum 3.6 mmol/L 3.5-5.2 chloride, serum [...] 0.70 mg/dL 0.00-1.00 sodium, serum 136 mmol/L 404-256 8767/02/11 potassium, serum 3.1 mmol/L 3.5-5.2 chloride, serum [...] 0.50 mg/dL 0.00-1.00 sodium, serum 138 mmol/L 559-362 6191/08/14 potassium, serum 4.0 mmol/L 3.5-5.2 chloride, serum 100 mmol/L 98-107 carbon dioxide, venous blood 28.7 mmol/L 21.0-32 .0 blood glucose 87 mg/dL 65-110 urea nitrogen, blood 25 mg/dL 7-18 creatinine, serum 1.20 mg/dL 0.60-1.30 alanine aminotransferase (SGPT), serum 38 U/L 12- aspartate aminotransferase (SGOT), serum 32 U/L 15-37 alkaline phosphatase, serum 198 U/L 50-136 calcium, serum 9.8 mg/dL 8.5-10.1 bilirubin, serum, total 0.40 mg/dL 0.00-1.00 sodium, serum 136 mmol/L 893-230 4014/04/03 potassium, serum 3.7 mmol/L 3.5-5.2 chloride, serum [...] 0.40 mg/dL 0.00-1.00 sodium, serum 139 mmol/L 688-946 9611/02/18 potassium, serum 3.6 mmol/L 3.5-5.2 chloride, serum 98 mmol/L 98-107 carbon dioxide, venous blood 33.2 mmol/L 21.0-32 .0 blood glucose 93 mg/dL 65-110 urea nitrogen, blood 13 mg/dL 7-18 creatinine, serum 1.00 mg/dL 0.60-1.30 alanine aminotransferase (SGPT), serum 12 U/L - aspartate aminotransferase (SGOT), serum 16 [...] 11 .6-14.8 platelet count 246 10^3/MM^3 10*3/mm3 190-510 3833/08/14 leukocyte count, blood 5.8 10^3/MM^3 10*3/mm3 4.6-10.2 [...] 11 .6-14.8 platelet count 193 10^3/MM^3 10*3/mm3 156-440 0956/02/18 leukocyte count, blood 4.0 10^3/MM^3 10*3/mm3 4.6-10.2 [...] 11 .6-14.8 platelet count 134 10^3/MM^3 10*3/mm3 104-086 8079/02/11 leukocyte count, blood 4.8 10^3/MM^3 10*3/mm3 4.6-10.2 [...] 11 .6-14.8 platelet count 102 10^3/MM^3 10*3/mm3 907-289 4805/02/04 leukocyte count, blood 3.6 10^3/MM^3 10*3/mm3 4.6-10.2 [...] 11 .6-14.8 platelet count 70 10^3/MM^3 10*3/mm3 235-404 9034/01/28 leukocyte count, blood 4.2 10^3/MM^3 10*3/mm3 4.6-10.2 [...] 11 .6-14.8 platelet count 73 10^3/MM^3 10*3/mm3 057-143 6422/01/03 leukocyte count, blood 8.1 10^3/MM^3 10*3/mm3 4.6-10.2 [...] 11 .6-14.8 platelet count 96 10^3/MM^3 10*3/mm3 065-028 4434/01/21 leukocyte count, blood 4.9 10^3/MM^3 10*3/mm3 4.6-10.2 [...] .6-14.8 platelet count 38 recounted 10^3/mm^3 10*3/mm3 109-872 8724/10/08 leukocyte count, blood 2.9 10^3/MM^3 10*3/mm3 4.6-10.2 [...] 11 .6-14.8 platelet count 229 10^3/MM^3 10*3/mm3 646-451 7460/10/17 leukocyte count, blood 12.0 10^3/MM^3 10*3/mm3 4.6-10.2 [...] 11 .6-14.8 platelet count 232 10^3/MM^3 10*3/mm3 938-622 8220/10/01 leukocyte count, blood 8.3 10^3/MM^3 10*3/mm3 4.6-10.2 [...] 11 .6-14.8 platelet count 378 10^3/MM^3 10*3/mm3 708-592 0177/01/06 leukocyte count, blood 7.6 10^3/MM^3 10*3/mm3 4.6-10.2 [...] 11 .6-14.8 platelet count 132 10^3/MM^3 10*3/mm3 461-802 2679/12/03 leukocyte count, blood 8.2 10^3/MM^3 10*3/mm3 4.6-10.2 [...] Diff/Morphology - Chemistry sodium, serum 141 mmol/L 796-837 7133/11/25 potassium, serum 3.9 mmol/L 3.5-5.2 chloride, serum [...] 0.50 mg/dL 0.00-1.00 sodium, serum 137 mmol/L 541-537 1353/11/12 potassium, serum 3.2 mmol/L 3.5-5.2 chloride, serum [...] 0.40 mg/dL 0.00-1.00 sodium, serum 140 mmol/L 457-998 5223/12/17 potassium, serum 3.3 mmol/L 3.5-5.2 chloride, serum [...] 0.40 mg/dL 0.00-1.00 sodium, serum 138 mmol/L 877-544 3205/12/24 potassium, serum 3.7 mmol/L 3.5-5.2 chloride, serum [...] 0.50 mg/dL 0.00-1.00 sodium, serum 135 mmol/L 673-325 5100/10/22 potassium, serum 3.0 mmol/L 3.5-5.2 chloride, serum 93 mmol/L 98-107 carbon dioxide, venous blood 31.6 mmol/L 21.0-32 .0 blood glucose 142 mg/dL 65-110 urea nitrogen, blood 15 mg/dL 7-18 creatinine, serum 1.80 mg/dL 0.60-1.30 alanine aminotransferase (SGPT), serum 45 U/L 12-78 aspartate aminotransferase (SGOT), serum 48 U/L 15-37 alkaline phosphatase, serum 136 U/L 50-136 calcium, serum 8.3 mg/dL 8.5-10.1 bilirubin, serum, total 0.50 mg/dL 0.00-1.00 sodium, serum 138 mmol/L 556-987 1643/11/05 potassium, serum 3.9 mmol/L 3.5-5.2 chloride, serum [...] serum, total 0.40 mg/dL 0.00-1.00 sodium, serum 128 mmol/L 837-407 9355/10/29 potassium, serum 2.6 mmol/L 3.5-5.2 chloride, serum 95 mmol/L 98-107 carbon dioxide, venous blood 35.6 mmol/L 21.0-32 .0 blood glucose 86 mg/dL 65-110 urea nitrogen, blood 25 mg/dL - creatinine, serum 1.50 mg/dL 0.60-1.30 alanine aminotransferase (SGPT), serum 34 U/L aspartate aminotransferase (SGOT), serum 38 U/L 15-37 alkaline phosphatase, serum 242 U/L 50-136 calcium, serum 9.4 mg/dL 8.5-10.1 bilirubin, serum, total 0.50 mg/dL 0.00-1.00 sodium, serum 141 mmol/L 423-384 9213/01/14 potassium, serum 3.9 mmol/L 3.5-5.2 chloride, serum 101 mmol/L 98-107 carbon dioxide, venous blood 30.4 mmol/L 21.0-32 .0 blood glucose 109 mg/dL 65-110 urea nitrogen, blood 23 mg/dL - creatinine, serum 1.30 mg/dL 0.60-1.30 alanine aminotransferase (SGPT), serum 19 U/L aspartate aminotransferase (SGOT), serum 28 U/L 15-37 [...] 11 .6-14.8 platelet count 22 10^3/MM^3 10*3/mm3 926-851 9525/10/22 leukocyte count, blood 14.7 10^3/MM^3 10*3/mm3 4.6-10.2 [...] 11 .6-14.8 platelet count 428 10^3/MM^3 10*3/mm3 022-430 5757/11/05 leukocyte count, blood 16.4 10^3/MM^3 10*3/mm3 4.6-10.2 [...] 11 .6-14.8 platelet count 215 10^3/MM^3 10*3/mm3 781-680 7049/11/12 leukocyte count, blood 12.1 10^3/MM^3 10*3/mm3 4.6-10.2 [...] 11 .6-14.8 platelet count 157 10^3/MM^3 10*3/mm3 491-585 2590/10/29 leukocyte count, blood 26.3 10^3/MM^3 10*3/mm3 4.6-10.2 [...] 11 .6-14.8 platelet count 268 10^3/MM^3 10*3/mm3 141-243 4786/12/24 leukocyte count, blood 14.0 10^3/MM^3 10*3/mm3 4.6-10.2 [...] 11 .6-14.8 platelet count 66 10^3/MM^3 10*3/mm3 488-300 9296/11/25 leukocyte count, blood 21.1 10^3/MM^3 10*3/mm3 4.6-10.2 [...] 11 .6-14.8 platelet count 46 10^3/MM^3 10*3/mm3 000-181 7257/12/17 leukocyte count, blood 18.6 10^3/MM^3 10*3/mm3 4.6-10.2 [...] ng/mL carcinoembryonic antigen 0.7 ng/mL carcinoembryonic antigen <0.5 ng/mL ng/mL carcinoembryonic antigen <0.5 ng/mL ng/mL Lab Report: cmp - Chemistry sodium, serum 142 mmol/L potassium, serum 4.0 mmol/L blood glucose 115 mg/dL creatinine, serum 1.24 mg/dL Lab Report: Comp. Metabolic Panel - Chem istry sodium, serum 141 mmol/L 837-495 3022/11/19 potassium, serum 3.9 mmol/L 3.5-5.2 chloride, serum 101 mmol/L 98-107 carbon dioxide, venous blood 32.0 mmol/L 21.0-32 .0 blood glucose 109 mg/dL 65-110 urea nitrogen, blood 22 mg/dL 7-18 creatinine, serum 1.50 mg/dL 0.60-1.30 alanine aminotransferase (SGPT), serum 38 U/L 12-78 aspartate aminotransferase (SGOT), serum 25 U/L 15-37 alkaline phosphatase, serum 184 U/L 50-136 calcium, serum 9.0 mg/dL 8.5-10.1 bilirubin, serum, total 0.50 mg/dL 0.00-1.00 sodium, serum 142 mmol/L 957-994 7751/12/10 potassium, serum 3.9 mmol/L 3.5-5.2 chloride, serum [...] Diff/Morphology - Chemistry sodium, serum 142 mmol/L 887-003 2409/12/31 potassium, serum 3.6 mmol/L 3.5-5.2 chloride, serum 101 mmol/L 98-107 carbon dioxide, venous blood 30.0 mmol/L 21.0-32 .0 blood glucose 101 mg/dL 65-110 urea nitrogen, blood 36 mg/dL 7-18 creatinine, serum 2.20 mg/dL 0.60-1.30 alanine aminotransferase (SGPT), serum 19 U/L aspartate aminotransferase (SGOT), serum 24 U/L [...] Panel - Chemistry cholesterol, serum 209 mg/dL 722-341 4727/09/11 triglyceride, serum, fasting 113 mg/dL 30-200 HDL cholesterol, serum 50 mg/dL 32-96 LDL cholesterol, serum 136 mg/dL 0-130 Encounters Code Encounter Date Provider Facility CPT-43932 Level 4 Est. Patient 20:04:51 CDT Hope cohn MD PhD [facility] CPT-11587 Level 3 New Patient 01:46:11 [employer] Hope landers MD PhD [facility] Procedures Code Procedure Name Date Entry Date Standard Desc ription CPT-53461 Bone Density 08:54:40 CDT CPT-OV Office Visit 15:37:02 CDT CPT-43392 Postop F/U Visit 15:47:49 CDT CPT-64670 Postop F/U Visit 15:21:02 CDT CPT-TCMH Transitional Care Mgmt-High 07:52:27 CDT 20 20/06/01 CPT-56275 Venipuncture Draw Fee 13:51:18 CDT CPT-22221 Venipuncture Draw Fee 10:14:55 [employer] CPT-21766 Venipuncture Draw Fee 13:39:45 [employer] CPT-OV Office Visit 15:11:22 [employer] CPT-05246 Venipuncture Draw Fee 09:20:49 [employer] CPT-46334 Venipuncture Draw Fee 16:52:15 [employer] CPT-76305 Venipuncture Draw Fee 10:37:24 [employer] CPT-05528 Venipuncture Draw Fee 08:21:21 [employer] CPT-26691 Venipuncture Draw Fee 08:30:20 [employer] CPT-54452 Venipuncture Draw Fee 14:53:21 [employer] CPT-69068 Venipuncture Draw Fee 09:40:56 [employer] CPT-27321 Venipuncture Draw Fee 10:30:47 [employer] CPT-23142 Venipuncture Draw Fee 10:46:17 [employer] CPT-92860 Venipuncture Draw Fee 11:12:45 [employer] CPT-99999 Venipuncture Draw Fee 09:53:33 [employer] CPT-59518 Venipuncture Draw Fee 11:53:51 [employer] CPT-09620 Venipuncture Draw Fee 10:33:50 [employer] CPT-85133 Venipuncture Draw Fee 10:05:01 [employer] CPT-87665 Venipuncture Draw Fee 14:32:52 [employer] CPT-17981 Venipuncture Draw Fee 09:46:13 [employer] CPT-57966 Venipuncture Draw Fee 11:34:27 [employer] CPT-48493 Venipuncture Draw Fee 13:17:16 [employer] CPT-08267 Venipuncture Draw Fee 12:05:39 CDT CPT-85207 Venipuncture Draw Fee 12:49:12 CDT CPT-52798 Venipuncture Draw Fee 12:37:18 CDT CPT-07361 Venipuncture Draw Fee 10:57:11 CDT CPT-51421 Venipuncture Draw Fee 13:47:40 CDT CPT-74387 Venipuncture Draw Fee 10:02:17 CDT CPT-08262 TB Tubersol 17:32:32 CDT CPT-OV Office Visit 16:21:53 CDT CPT-OV Office Visit 15:49:22 CDT CPT-OV Office Visit 17:16:31 CDT CPT-OV Office Visit 10:43:31 CDT
--- OUTSIDE RECORDS SUMMARY | 2019-02-09 13:04 | XMS REPORT | Clinical Summary ---
Author Author Renaldo, Florecita Munoz Organization [facility] Address Unknown Phone Allergies, Adverse Reactions, Alerts [...] MG CAPS 1 q d FLUOXETINE HCL 68494 057510 No Longer Active Hope Benavidez MD PhD Active INNOPRAN XL 120 MG [id number] Take one by mouth daily PROPRANOLOL HCL SR BEADS 56143040869 Active Hope Benavidez MD PhD Active POTASSIUM CHLORIDE 20 MEQ PACK by mouth twice a day prn POTASSIUM CHLORIDE 05926837196 Active Adam Yates MD Activ e CYCLOBENZAPRINE HCL 10 MG TABS 1 tablet by mouth three times daily as needed for headaches CYCLOBENZAPRINE HCL 02835447556 Active Selena Yates MD Active SIMVASTATIN 40 MG TABS 1 qd SIMVASTATIN 004 14144287 No Longer Active Adam Yates MD Active MELOXICAM 15 MG TABS 1 qd MELOXICAM 3078372 2641 No Longer Active Adam Yates MD Active ATENOLOL 50 MG TABS 1/2 tab q other day ATENOLOL 29318381012 Active Hope Benavidez MD PhD Active OMEPRAZOLE 20 MG CPDR 1 tablet by mouth daily for GERD OMEPRAZOLE 97212794886 Active Hope Benavidez MD PhD Active IMODIUM A-D 2 MG TABS 2 onset at diarrhea and prn. LOPERAMIDE HCL 99836919632 Active Hope Benavidez MD PhD Active PHENADOZ 25 MG SUPP 1 every 4 hrs. PRN PROMETHAZINE HCL 28550030305 Active Hope Benavidez MD PhD Active PROMETHAZINE HCL 25 MG TABS 1 Q. 4 hr. PRN PROMETH AZINE HCL 57657771284 Active Hope Benavidez MD PhD Active EXCEDRIN EXTRA STRENGTH 250-250-65 MG TABS 1-2 q6h PRN headache 201 04/16/21 PERJIET-[id number] 25475343073 Active Hope Benavidez MD PhD Active ZOFRAN 4 MG TABS 1 q 6 hr prn ONDANSETRON HCL 3060314 7002 Active Fay Alberts Active FLAGYL 500 MG TABS 1 qid METRONIDAZOLE 86679 709990 No Longer Active Adam Yates MD Active LEVAQUIN 750 MG TABS 1 qd LEVOFLOXACIN 5486 7769284 No Longer Active Adam Yates MD Active DYAZIDE 37.5-25 MG CAPS 1 qd TRIAMTERENE-HCTZ 5886 5359562 Active Hope Benavidez MD PhD Active ADULT ASPIRIN LOW STRENGTH 81 MG TBDP 1 qd A SPIRIN 62666388534 Active Hope Benavidez MD PhD Active LEVAQUIN 750 MG TABS 1 qd LEVAQUIN 750 MG T ABS 974898 LEVOFLOXACIN Inactive FLAGYL 500 MG TABS 1 qid FLAGYL 500 MG TABS 678188 METRONIDAZOLE Inactive MELOXICAM 15 MG TABS 1 qd MELOXICAM 15 MG T ABS 059597 MELOXICAM Inactive SIMVASTATIN 40 MG TABS 1 qd SIMVASTATIN 40 MG TABS 800169 SIMVASTATIN Inactive PROZAC 20 MG CAPS 1 [...] - Chem istry sodium, serum 137 mmol/L 779-883 6022/11/01 potassium, serum 3.7 mmol/L 3.5-5.2 chloride, serum 100 mmol/L 98-107 carbon dioxide, venous blood 31.8 mmol/L 21.0-32 .0 blood glucose 98 mg/dL 65-110 calcium, serum 8.6 mg/dL 8.5-10.1 urea nitrogen, blood 23 mg/dL 7-18 creatinine, serum 1.50 mg/dL 0.60-1.30 sodium, serum 136 mmol/L 464-314 9505/05/02 potassium, serum 4.1 mmol/L 3.5-5.2 chloride, serum [...] 11 .6-14.8 platelet count 133 10^3/MM^3 10*3/mm3 135-510 0901/01/17 leukocyte count, blood 3.1 10^3/MM^3 10*3/mm3 4.6-10.2 [...] 11 .6-14.8 platelet count 22 10^3/MM^3 10*3/mm3 812-936 7029/11/19 leukocyte count, blood 10.4 10^3/MM^3 10*3/mm3 4.6-10.2 [...] Verified By Repeat Analysis 10^3/mm ^3 10*3/mm3 974-492 8855/12/10 leukocyte count, blood 7.8 10^3/MM^3 10*3/mm3 4.6-10.2 [...] Panel - Chemistry sodium, serum 139 mmol/L 794-678 2219/12/03 potassium, serum 3.7 mmol/L 3.5-5.2 chloride, serum [...] 0.40 mg/dL 0.00-1.00 sodium, serum 137 mmol/L 287-507 3198/10/01 potassium, serum 3.5 mmol/L 3.5-5.2 chloride, serum [...] 0.60 mg/dL 0.00-1.00 sodium, serum 136 mmol/L 039-111 3553/10/08 potassium, serum 3.1 mmol/L 3.5-5.2 chloride, serum [...] 0.60 mg/dL 0.00-1.00 sodium, serum 139 mmol/L 909-724 0649/10/17 potassium, serum 3.1 mmol/L 3.5-5.2 chloride, serum [...] 0.30 mg/dL 0.00-1.00 sodium, serum 139 mmol/L 884-369 5291/01/21 potassium, serum 3.4 mmol/L 3.5-5.2 chloride, serum [...] 0.40 mg/dL 0.00-1.00 sodium, serum 138 mmol/L 861-017 4983/01/28 potassium, serum 3.2 mmol/L 3.5-5.2 chloride, serum [...] 0.40 mg/dL 0.00-1.00 sodium, serum 140 mmol/L 619-070 1007/02/04 potassium, serum 3.6 mmol/L 3.5-5.2 chloride, serum [...] 0.70 mg/dL 0.00-1.00 sodium, serum 142 mmol/L 670-342 0839/01/03 potassium, serum 3.4 mmol/L 3.5-5.2 chloride, serum [...] 0.50 mg/dL 0.00-1.00 sodium, serum 140 mmol/L 957-887 4015/01/06 potassium, serum 3.4 mmol/L 3.5-5.2 chloride, serum [...] 0.40 mg/dL 0.00-1.00 sodium, serum 136 mmol/L 964-116 8390/04/03 potassium, serum 3.7 mmol/L 3.5-5.2 chloride, serum [...] 0.40 mg/dL 0.00-1.00 sodium, serum 136 mmol/L 830-839 2286/02/11 potassium, serum 3.1 mmol/L 3.5-5.2 chloride, serum [...] 0.50 mg/dL 0.00-1.00 sodium, serum 139 mmol/L 558-623 2113/02/18 potassium, serum 3.6 mmol/L 3.5-5.2 chloride, serum [...] 11 .6-14.8 platelet count 246 10^3/MM^3 10*3/mm3 307-342 2063/02/18 leukocyte count, blood 4.0 10^3/MM^3 10*3/mm3 4.6-10.2 [...] 11 .6-14.8 platelet count 134 10^3/MM^3 10*3/mm3 482-829 6555/01/03 leukocyte count, blood 8.1 10^3/MM^3 10*3/mm3 4.6-10.2 [...] 11 .6-14.8 platelet count 96 10^3/MM^3 10*3/mm3 509-840 5695/01/06 leukocyte count, blood 7.6 10^3/MM^3 10*3/mm3 4.6-10.2 [...] 11 .6-14.8 platelet count 132 10^3/MM^3 10*3/mm3 454-491 3129/02/11 leukocyte count, blood 4.8 10^3/MM^3 10*3/mm3 4.6-10.2 [...] 11 .6-14.8 platelet count 102 10^3/MM^3 10*3/mm3 126-149 8728/02/04 leukocyte count, blood 3.6 10^3/MM^3 10*3/mm3 4.6-10.2 [...] 11 .6-14.8 platelet count 70 10^3/MM^3 10*3/mm3 358-305 4060/01/28 leukocyte count, blood 4.2 10^3/MM^3 10*3/mm3 4.6-10.2 [...] 11 .6-14.8 platelet count 73 10^3/MM^3 10*3/mm3 950-331 1602/01/21 leukocyte count, blood 4.9 10^3/MM^3 10*3/mm3 4.6-10.2 [...] .6-14.8 platelet count 38 recounted 10^3/mm^3 10*3/mm3 713-031 8061/10/08 leukocyte count, blood 2.9 10^3/MM^3 10*3/mm3 4.6-10.2 [...] 11 .6-14.8 platelet count 229 10^3/MM^3 10*3/mm3 675-767 9587/10/17 leukocyte count, blood 12.0 10^3/MM^3 10*3/mm3 4.6-10.2 [...] 11 .6-14.8 platelet count 232 10^3/MM^3 10*3/mm3 570-770 8260/10/01 leukocyte count, blood 8.3 10^3/MM^3 10*3/mm3 4.6-10.2 [...] 11 .6-14.8 platelet count 378 10^3/MM^3 10*3/mm3 920-198 7121/12/03 leukocyte count, blood 8.2 10^3/MM^3 10*3/mm3 4.6-10.2 [...] Diff/Morphology - Chemistry sodium, serum 141 mmol/L 624-883 4195/11/25 potassium, serum 3.9 mmol/L 3.5-5.2 chloride, serum [...] 0.50 mg/dL 0.00-1.00 sodium, serum 137 mmol/L 315-339 9924/11/12 potassium, serum 3.2 mmol/L 3.5-5.2 chloride, serum [...] 0.40 mg/dL 0.00-1.00 sodium, serum 140 mmol/L 292-530 6756/12/17 potassium, serum 3.3 mmol/L 3.5-5.2 chloride, serum [...] 0.40 mg/dL 0.00-1.00 sodium, serum 138 mmol/L 412-045 8850/12/24 potassium, serum 3.7 mmol/L 3.5-5.2 chloride, serum [...] 0.50 mg/dL 0.00-1.00 sodium, serum 138 mmol/L 125-488 8917/11/05 potassium, serum 3.9 mmol/L 3.5-5.2 chloride, serum [...] 0.40 mg/dL 0.00-1.00 sodium, serum 135 mmol/L 806-019 0122/10/22 potassium, serum 3.0 mmol/L 3.5-5.2 chloride, serum [...] 0.50 mg/dL 0.00-1.00 sodium, serum 128 mmol/L 944-883 4288/10/29 potassium, serum 2.6 mmol/L 3.5-5.2 chloride, serum [...] 0.50 mg/dL 0.00-1.00 sodium, serum 141 mmol/L 740-990 0945/01/14 potassium, serum 3.9 mmol/L 3.5-5.2 chloride, serum [...] 11 .6-14.8 platelet count 22 10^3/MM^3 10*3/mm3 838-406 7547/10/22 leukocyte count, blood 14.7 10^3/MM^3 10*3/mm3 4.6-10.2 [...] 11 .6-14.8 platelet count 428 10^3/MM^3 10*3/mm3 817-407 8860/10/29 leukocyte count, blood 26.3 10^3/MM^3 10*3/mm3 4.6-10.2 [...] 11 .6-14.8 platelet count 268 10^3/MM^3 10*3/mm3 977-052 9814/11/12 leukocyte count, blood 12.1 10^3/MM^3 10*3/mm3 4.6-10.2 [...] 11 .6-14.8 platelet count 157 10^3/MM^3 10*3/mm3 308-626 1184/11/05 leukocyte count, blood 16.4 10^3/MM^3 10*3/mm3 4.6-10.2 [...] 11 .6-14.8 platelet count 215 10^3/MM^3 10*3/mm3 813-902 9671/12/24 leukocyte count, blood 14.0 10^3/MM^3 10*3/mm3 4.6-10.2 [...] 11 .6-14.8 platelet count 66 10^3/MM^3 10*3/mm3 159-839 4582/12/17 leukocyte count, blood 18.6 10^3/MM^3 10*3/mm3 4.6-10.2 [...] 11 .6-14.8 platelet count 75 10^3/MM^3 10*3/mm3 576-883 1512/11/25 leukocyte count, blood 21.1 10^3/MM^3 10*3/mm3 4.6-10.2 [...] 11 .6-14.8 platelet count 413 10^3/MM^3 10*3/mm3 212-029 3130/01/16 leukocyte count, blood 3.6 10^3/MM^3 10*3/mm3 4.6-10.2 [...] - Chem istry sodium, serum 141 mmol/L 287-244 5835/11/19 potassium, serum 3.9 mmol/L 3.5-5.2 chloride, serum [...] 0.50 mg/dL 0.00-1.00 sodium, serum 142 mmol/L 997-896 5507/12/10 potassium, serum 3.9 mmol/L 3.5-5.2 chloride, serum [...] Diff/Morphology - Chemistry sodium, serum 142 mmol/L 014-938 3091/12/31 potassium, serum 3.6 mmol/L 3.5-5.2 chloride, serum [...] 3.5-5.2 Encounters Code Encounter Date Provider Facility CPT-73355 Level 3 New Patient 01:46:11 [employer] Hope landers MD PhD [facility] Procedures Code Procedure Name Date Entry Date Standard Desc ription CPT-31229 Postop F/U Visit 15:21:02 CDT CPT-TCMH Transitional Care Mgmt-High 07:52:27 CDT 20 20/06/01 CPT-79408 Venipuncture Draw Fee 13:51:18 CDT CPT-79803 Venipuncture Draw Fee 10:14:55 [employer] CPT-84746 Venipuncture Draw Fee 13:39:45 [employer] CPT-OV Office Visit 15:11:22 [employer] CPT-23234 Venipuncture Draw Fee 09:20:49 [employer] CPT-30414 Venipuncture Draw Fee 16:52:15 [employer] CPT-26031 Venipuncture Draw Fee 10:37:24 [employer] CPT-81915 Venipuncture Draw Fee 08:21:21 [employer] CPT-44943 Venipuncture Draw Fee 08:30:20 [employer] CPT-45449 Venipuncture Draw Fee 14:53:21 [employer] CPT-01242 Venipuncture Draw Fee 09:40:56 [employer] CPT-10568 Venipuncture Draw Fee 10:30:47 [employer] CPT-93691 Venipuncture Draw Fee 10:46:17 [employer] CPT-10419 Venipuncture Draw Fee 11:12:45 [employer] CPT-33393 Venipuncture Draw Fee 09:53:33 [employer] CPT-14224 Venipuncture Draw Fee 11:53:51 [employer] CPT-47612 Venipuncture Draw Fee 10:33:50 [employer] CPT-07987 Venipuncture Draw Fee 10:05:01 [employer] CPT-44499 Venipuncture Draw Fee 14:32:52 [employer] CPT-02246 Venipuncture Draw Fee 09:46:13 [employer] CPT-62685 Venipuncture Draw Fee 11:34:27 [employer] CPT-95312 Venipuncture Draw Fee 13:17:16 [employer] CPT-04250 Venipuncture Draw Fee 12:05:39 CDT CPT-85375 Venipuncture Draw Fee 12:49:12 CDT CPT-53918 Venipuncture Draw Fee 12:37:18 CDT CPT-22428 Venipuncture Draw Fee 10:57:11 CDT CPT-63933 Venipuncture Draw Fee 13:47:40 CDT CPT-45395 Venipuncture Draw Fee 10:02:17 CDT CPT-83779 TB Tubersol 17:32:32 CDT CPT-OV Office Visit 16:21:53 CDT CPT-OV Office Visit 15:49:22 CDT CPT-OV Office Visit 17:16:31 CDT CPT-OV Office Visit 10:43:31 CDT
--- OUTSIDE RECORDS SUMMARY | 2019-02-09 13:04 | XMS REPORT | Clinical Summary ---
Author Author Renaldo, Florecita Munoz Organization [facility] Address Unknown Phone Allergies, Adverse Reactions, Alerts [...] 1 tab 3x aday M AGNESIUM GLUCONATE 40925893267 Active Adam Yates MD Active PROZAC 20 MG CAPS 1 q d FLUOXETINE HCL 21167 126590 No Longer Active Hope Benavidez MD PhD Active INNOPRAN XL 120 MG [id number] Take one by mouth daily PROPRANOLOL HCL SR BEADS 86879077586 Active Hope Benavidez MD PhD Active POTASSIUM CHLORIDE 20 MEQ PACK by mouth twice a day prn POTASSIUM CHLORIDE 55191248267 Active dAam Yates MD Activ e CYCLOBENZAPRINE HCL 10 MG TABS 1 tablet by mouth three times daily as needed for headaches CYCLOBENZAPRINE HCL 99763154366 Active Selena Yates MD Active SIMVASTATIN 40 MG TABS 1 qd SIMVASTATIN 004 68860669 No Longer Active Adam Yates MD Active MELOXICAM 15 MG TABS 1 qd MELOXICAM 7790700 9456 No Longer Active Adam Yates MD Active ATENOLOL 50 MG TABS 1/2 tab q other day ATENOLOL 89000778154 Active Hope Benavidez MD PhD Active OMEPRAZOLE 20 MG CPDR 1 tablet by mouth daily for GERD OMEPRAZOLE 70044375323 Active Hope Benavidez MD PhD Active IMODIUM A-D 2 MG TABS 2 onset at diarrhea and prn. LOPERAMIDE HCL 02677865134 Active Hope Benavidez MD PhD Active PHENADOZ 25 MG SUPP 1 every 4 hrs. PRN PROMETHAZINE HCL 08354623949 Active Hope Benavidez MD PhD Active PROMETHAZINE HCL 25 MG TABS 1 Q. 4 hr. PRN PROMETH AZINE HCL 66466619031 Active Hope Benavidez MD PhD Active EXCEDRIN EXTRA STRENGTH 250-250-65 MG TABS 1-2 q6h PRN headache 201 04/16/21 [id number] 31607686903 Active Hope Benavidez MD PhD Active ZOFRAN 4 MG TABS 1 q 6 hr prn ONDANSETRON HCL 7062458 7002 Active Fay Alberts Active FLAGYL 500 MG TABS 1 qid METRONIDAZOLE 89494 437254 No Longer Active Adam Yates MD Active LEVAQUIN 750 MG TABS 1 qd LEVOFLOXACIN 5486 3634148 No Longer Active Adam Yates MD Active DYAZIDE 37.5-25 MG CAPS 1 qd TRIAMTERENE-HCTZ 5886 6735110 Active Hope Benavidez MD PhD Active ADULT ASPIRIN LOW STRENGTH 81 MG TBDP 1 qd A SPIRIN 15975336620 Active Hope Benavidez MD PhD Active LEVAQUIN 750 MG TABS 1 qd LEVAQUIN 750 MG T ABS 261822 LEVOFLOXACIN Inactive FLAGYL 500 MG TABS 1 qid FLAGYL 500 MG TABS 936434 METRONIDAZOLE Inactive MELOXICAM 15 MG TABS 1 qd MELOXICAM 15 MG T ABS 518160 MELOXICAM Inactive SIMVASTATIN 40 MG TABS 1 qd SIMVASTATIN 40 MG TABS 743237 SIMVASTATIN Inactive PROZAC 20 MG CAPS 1 [...] - Chem istry sodium, serum 137 mmol/L 640-666 0687/11/01 potassium, serum 3.7 mmol/L 3.5-5.2 chloride, serum 100 mmol/L 98-107 carbon dioxide, venous blood 31.8 mmol/L 21.0-32 .0 blood glucose 98 mg/dL 65-110 calcium, serum 8.6 mg/dL 8.5-10.1 urea nitrogen, blood 23 mg/dL 7-18 creatinine, serum 1.50 mg/dL 0.60-1.30 sodium, serum 136 mmol/L 706-661 7020/05/02 potassium, serum 4.1 mmol/L 3.5-5.2 chloride, serum [...] 11 .6-14.8 platelet count 133 10^3/MM^3 10*3/mm3 515-902 6486/01/17 leukocyte count, blood 3.1 10^3/MM^3 10*3/mm3 4.6-10.2 [...] 11 .6-14.8 platelet count 22 10^3/MM^3 10*3/mm3 445-647 0781/11/19 leukocyte count, blood 10.4 10^3/MM^3 10*3/mm3 4.6-10.2 [...] Verified By Repeat Analysis 10^3/mm ^3 10*3/mm3 961-097 0821/12/10 leukocyte count, blood 7.8 10^3/MM^3 10*3/mm3 4.6-10.2 [...] Panel - Chemistry sodium, serum 139 mmol/L 686-469 6094/12/03 potassium, serum 3.7 mmol/L 3.5-5.2 chloride, serum [...] 0.40 mg/dL 0.00-1.00 sodium, serum 137 mmol/L 463-241 3680/10/01 potassium, serum 3.5 mmol/L 3.5-5.2 chloride, serum [...] 0.60 mg/dL 0.00-1.00 sodium, serum 136 mmol/L 007-466 7191/10/08 potassium, serum 3.1 mmol/L 3.5-5.2 chloride, serum [...] 0.60 mg/dL 0.00-1.00 sodium, serum 139 mmol/L 575-990 0692/10/17 potassium, serum 3.1 mmol/L 3.5-5.2 chloride, serum [...] 0.30 mg/dL 0.00-1.00 sodium, serum 139 mmol/L 110-251 1668/01/21 potassium, serum 3.4 mmol/L 3.5-5.2 chloride, serum [...] 0.40 mg/dL 0.00-1.00 sodium, serum 138 mmol/L 078-584 4351/01/28 potassium, serum 3.2 mmol/L 3.5-5.2 chloride, serum [...] 0.40 mg/dL 0.00-1.00 sodium, serum 140 mmol/L 367-452 8149/02/04 potassium, serum 3.6 mmol/L 3.5-5.2 chloride, serum [...] 0.70 mg/dL 0.00-1.00 sodium, serum 142 mmol/L 544-565 2176/01/03 potassium, serum 3.4 mmol/L 3.5-5.2 chloride, serum [...] 0.50 mg/dL 0.00-1.00 sodium, serum 140 mmol/L 087-507 1534/01/06 potassium, serum 3.4 mmol/L 3.5-5.2 chloride, serum [...] 0.40 mg/dL 0.00-1.00 sodium, serum 136 mmol/L 248-874 8516/04/03 potassium, serum 3.7 mmol/L 3.5-5.2 chloride, serum [...] 0.40 mg/dL 0.00-1.00 sodium, serum 136 mmol/L 638-809 6394/02/11 potassium, serum 3.1 mmol/L 3.5-5.2 chloride, serum [...] 0.50 mg/dL 0.00-1.00 sodium, serum 139 mmol/L 847-121 7267/02/18 potassium, serum 3.6 mmol/L 3.5-5.2 chloride, serum [...] 11 .6-14.8 platelet count 246 10^3/MM^3 10*3/mm3 720-972 3349/02/18 leukocyte count, blood 4.0 10^3/MM^3 10*3/mm3 4.6-10.2 [...] 11 .6-14.8 platelet count 134 10^3/MM^3 10*3/mm3 501-022 7660/01/03 leukocyte count, blood 8.1 10^3/MM^3 10*3/mm3 4.6-10.2 [...] 11 .6-14.8 platelet count 96 10^3/MM^3 10*3/mm3 937-858 5743/01/06 leukocyte count, blood 7.6 10^3/MM^3 10*3/mm3 4.6-10.2 [...] 11 .6-14.8 platelet count 132 10^3/MM^3 10*3/mm3 655-003 3886/02/11 leukocyte count, blood 4.8 10^3/MM^3 10*3/mm3 4.6-10.2 [...] 11 .6-14.8 platelet count 102 10^3/MM^3 10*3/mm3 076-745 6605/02/04 leukocyte count, blood 3.6 10^3/MM^3 10*3/mm3 4.6-10.2 [...] 11 .6-14.8 platelet count 70 10^3/MM^3 10*3/mm3 443-126 9582/01/28 leukocyte count, blood 4.2 10^3/MM^3 10*3/mm3 4.6-10.2 [...] 11 .6-14.8 platelet count 73 10^3/MM^3 10*3/mm3 175-074 1704/01/21 leukocyte count, blood 4.9 10^3/MM^3 10*3/mm3 4.6-10.2 [...] .6-14.8 platelet count 38 recounted 10^3/mm^3 10*3/mm3 395-330 4056/10/08 leukocyte count, blood 2.9 10^3/MM^3 10*3/mm3 4.6-10.2 [...] 11 .6-14.8 platelet count 229 10^3/MM^3 10*3/mm3 793-984 0077/10/17 leukocyte count, blood 12.0 10^3/MM^3 10*3/mm3 4.6-10.2 [...] 11 .6-14.8 platelet count 232 10^3/MM^3 10*3/mm3 305-597 7216/10/01 leukocyte count, blood 8.3 10^3/MM^3 10*3/mm3 4.6-10.2 [...] 11 .6-14.8 platelet count 378 10^3/MM^3 10*3/mm3 453-065 1973/12/03 leukocyte count, blood 8.2 10^3/MM^3 10*3/mm3 4.6-10.2 [...] Diff/Morphology - Chemistry sodium, serum 141 mmol/L 267-143 8465/11/25 potassium, serum 3.9 mmol/L 3.5-5.2 chloride, serum [...] 0.50 mg/dL 0.00-1.00 sodium, serum 137 mmol/L 732-107 1609/11/12 potassium, serum 3.2 mmol/L 3.5-5.2 chloride, serum [...] 0.40 mg/dL 0.00-1.00 sodium, serum 140 mmol/L 023-702 7833/12/17 potassium, serum 3.3 mmol/L 3.5-5.2 chloride, serum [...] 0.40 mg/dL 0.00-1.00 sodium, serum 138 mmol/L 479-552 4368/12/24 potassium, serum 3.7 mmol/L 3.5-5.2 chloride, serum [...] 0.50 mg/dL 0.00-1.00 sodium, serum 138 mmol/L 761-612 6350/11/05 potassium, serum 3.9 mmol/L 3.5-5.2 chloride, serum [...] 0.40 mg/dL 0.00-1.00 sodium, serum 135 mmol/L 196-585 6095/10/22 potassium, serum 3.0 mmol/L 3.5-5.2 chloride, serum [...] 0.50 mg/dL 0.00-1.00 sodium, serum 128 mmol/L 407-435 7428/10/29 potassium, serum 2.6 mmol/L 3.5-5.2 chloride, serum [...] 0.50 mg/dL 0.00-1.00 sodium, serum 141 mmol/L 143-645 7738/01/14 potassium, serum 3.9 mmol/L 3.5-5.2 chloride, serum [...] 11 .6-14.8 platelet count 22 10^3/MM^3 10*3/mm3 563-824 4552/10/22 leukocyte count, blood 14.7 10^3/MM^3 10*3/mm3 4.6-10.2 [...] 11 .6-14.8 platelet count 428 10^3/MM^3 10*3/mm3 578-248 5106/10/29 leukocyte count, blood 26.3 10^3/MM^3 10*3/mm3 4.6-10.2 [...] 11 .6-14.8 platelet count 268 10^3/MM^3 10*3/mm3 502-155 4435/11/12 leukocyte count, blood 12.1 10^3/MM^3 10*3/mm3 4.6-10.2 [...] 11 .6-14.8 platelet count 157 10^3/MM^3 10*3/mm3 829-067 8914/11/05 leukocyte count, blood 16.4 10^3/MM^3 10*3/mm3 4.6-10.2 [...] 11 .6-14.8 platelet count 215 10^3/MM^3 10*3/mm3 855-489 2348/12/24 leukocyte count, blood 14.0 10^3/MM^3 10*3/mm3 4.6-10.2 [...] 11 .6-14.8 platelet count 66 10^3/MM^3 10*3/mm3 570-391 8048/12/17 leukocyte count, blood 18.6 10^3/MM^3 10*3/mm3 4.6-10.2 [...] 11 .6-14.8 platelet count 75 10^3/MM^3 10*3/mm3 524-662 0885/11/25 leukocyte count, blood 21.1 10^3/MM^3 10*3/mm3 4.6-10.2 [...] 11 .6-14.8 platelet count 413 10^3/MM^3 10*3/mm3 335-172 1300/01/16 leukocyte count, blood 3.6 10^3/MM^3 10*3/mm3 4.6-10.2 [...] - Chem istry sodium, serum 141 mmol/L 049-638 4367/11/19 potassium, serum 3.9 mmol/L 3.5-5.2 chloride, serum [...] 0.50 mg/dL 0.00-1.00 sodium, serum 142 mmol/L 700-660 0768/12/10 potassium, serum 3.9 mmol/L 3.5-5.2 chloride, serum [...] Diff/Morphology - Chemistry sodium, serum 142 mmol/L 899-216 9419/12/31 potassium, serum 3.6 mmol/L 3.5-5.2 chloride, serum [...] 3.5-5.2 Encounters Code Encounter Date Provider Facility CPT-01228 Level 3 New Patient 01:46:11 [employer] Hope landers MD PhD [facility] Procedures Code Procedure Name Date Entry Date Standard Desc ription CPT-45588 Postop F/U Visit 15:47:49 CDT CPT-57755 Postop F/U Visit 15:21:02 CDT CPT-TCM Transitional Care Mgmt-High 07:52:27 CDT 20 20/06/01 CPT-40912 Venipuncture Draw Fee 13:51:18 CDT CPT-27327 Venipuncture Draw Fee 10:14:55 [employer] CPT-44296 Venipuncture Draw Fee 13:39:45 [employer] CPT-OV Office Visit 15:11:22 [employer] CPT-61459 Venipuncture Draw Fee 09:20:49 [employer] CPT-80529 Venipuncture Draw Fee 16:52:15 [employer] CPT-39812 Venipuncture Draw Fee 10:37:24 [employer] CPT-33226 Venipuncture Draw Fee 08:21:21 [employer] CPT-44781 Venipuncture Draw Fee 08:30:20 [employer]EL[employer] CPT-68281 Venipuncture Draw Fee 14:53:21 [employer] CPT-75363 Venipuncture Draw Fee 09:40:56 [employer] CPT-47048 Venipuncture Draw Fee 10:30:47 [employer] CPT-45775 Venipuncture Draw Fee 10:46:17 [employer] CPT-86629 Venipuncture Draw Fee 11:12:45 [employer] JS DEVELOPER CPT-31509 Venipuncture Draw Fee 09:53:33 ANGULAR JS DEVELOPER CPT-10983 Venipuncture Draw Fee 11:53:51 ANGULAR JS DEVELOPER CPT-59217 Venipuncture Draw Fee 10:33:50 ANGULAR JS DEVELOPER CPT-38140 Venipuncture Draw Fee 10:05:01 ANGULAR JS DEVELOPER CPT-82261 Venipuncture Draw Fee 14:32:52 ANGULAR JS DEVELOPER CPT-55848 Venipuncture Draw Fee 09:46:13 ANGULAR JS DEVELOPER CPT-54599 Venipuncture Draw Fee 11:34:27 ANGULAR JS DEVELOPER CPT-57489 Venipuncture Draw Fee 13:17:16 ANGULAR JS DEVELOPER CPT-90022 Venipuncture Draw Fee 12:05:39 CDT CPT-02834 Venipuncture Draw Fee 12:49:12 CDT CPT-54926 Venipuncture Draw Fee 12:37:18 CDT CPT-96345 Venipuncture Draw Fee 10:57:11 CDT CPT-37124 Venipuncture Draw Fee 13:47:40 CDT CPT-55801 Venipuncture Draw Fee 10:02:17 CDT CPT-08792 TB Tubersol 17:32:32 CDT CPT-OV Office Visit 16:21:53 CDT CPT-OV Office Visit 15:49:22 CDT CPT-OV Office Visit 17:16:31 CDT CPT-OV Office Visit 10:43:31 CDT
--- OUTSIDE RECORDS SUMMARY | 2019-02-09 13:05 | XMS REPORT | Clinical Summary ---
Author Author Renalod, Florecita Munoz Organization [facility] Address Unknown Phone Unavailable Allergies, Adverse Reactions, [...] Citlaly Marmolejof ord RMA Other B-complex deficiencies ABDOMINAL PAIN, [...] exam ICD-V70.0 Bam Yates MD Weakness ICD-780.79 Bam Benavidez MD P hD Aftercare following surgery of the teeth,oral cavity a nd digestive system, NEC ICD-V58.75 Bam Yates MD ADENOCARCINOMA, COLON, CECUM ICD-153.4 Dick Yates MD Asymptomatic postmenopausal status (age-related) (natural) I CD-V49.81 Bam Benavidez MD PhD Dysuria ICD-788.1 Inactive Hope Benavidez MD PhD 201 05/19/01 Colon cancer ICD-153.9 Bam luna MD Medication List Medication Instructions Start Date Stop Date Generic Name NDC Status Provider Patient Instruction CYANOCOBALAMIN 1000 MCG/ML INJ SOLN 1 injection every 2 weeks 01/09 CYANOCOBALAMIN 16046753881 Active Laura Elder Active VITAMIN D3 4000 IU 1 tab 3 times daily VITAMIN D3 400 0 IU Active Hope Benavidez MD PhD Active BACTRIM DS 800-160 MG TABS 1 pill by mouth twice daily, for UTI SULFAMETHOXAZOLE-TRIMETHOPRIM 03367043451 No Longer Active Lisa Benavidez MD PhD Active PROLIA 60 MG/ML SOLN 1 shot every 6 months for osteoprosis DENOSUMAB 25277762757 Active Hope Benavidez MD PhD Active CALCIUM + D + K 750-500-40 MG-UNT-MCG TABS 1 tab by mouth tw ice daily CALCIUM-VITAMIN D-VITAMIN K 71586093745 Active Hope landers MD PhD Active DAILY VALUE MULTIVITAMIN TABS 1 tab by mouth twice daily MULTIPLE VITAMIN 68356701380 Active Hope Benavidez MD PhD Active FISH OIL 306 MG CAPS 1 tab by mouth three times daily OMEGA-3 FATTY ACIDS 68949712819 Active Hope Benavidez MD PhD Active LUTEIN 10 MG TABS 1 tab daily LUTEIN 56988366194 Act cash Hope Benavidez MD PhD Active FLORANEX PACK 1 pack three times daily, for bowel health LACTOBACILLUS 61636255762 Active Hope Benavidez MD PhD Active LOMOTIL 2.5-0.025 MG TABS 1 tab by mouth prn DIPHENOXYLATE-ATROPINE 52727799340 Active Hope Benavidez MD PhD Active TRIAMTERENE-HCTZ 37.5-25 MG TABS 1 tab by mouth daily TRIAMTERENE-HCTZ 97536228439 Active Hope Benavidez MD PhD Acti ve IRON 325 (65 FE) MG TABS 1 tab daily FERROUS SULF ATE 75197164342 Active Hope Benavidez MD PhD Active MAGNESIUM GLUCONATE 250 MG TABS 1 tab tid MAGN ESIUM GLUCONATE 85668961456 Active Adam Yates MD Active ATENOLOL 50 MG TABS 1/2 tab q other day m-w-f ATE NOLOL 08361383983 Active Hope Benavidez MD PhD Active PROPRANOLOL HCL 80 MG TABS 1 tab tue. and thur. PROPRANOLOL HCL 52557064398 Active Adam Yates MD Active CYCLOBENZAPRINE HCL 10 MG TABS 1 tablet by mouth three times daily as needed for headaches CYCLOBENZAPRINE HCL 33732121861 No Longe r Active Adam Yates MD Active OMEPRAZOLE 20 MG CPDR 1 tablet by mouth daily for GERD OMEPRAZOLE 26487886197 No Longer Active Adam Yates MD A ctive ZOFRAN 8 MG TABS 1 tab by mouth every 12 hours prn 201 05/16/09 ONDANSETRON HCL 10752670033 No Longer Active Adam Yates MD Active PHENADOZ 25 MG SUPP 1 every 4 hrs. PRN PROMETHA ZINE HCL 90687950062 No Longer Active Adam Yates MD Active POTASSIUM CHLORIDE 20 MEQ PACK by mouth twice a day prn POTASSIUM CHLORIDE 18749684935 No Longer Active Adam Yates MD Active PROMETHAZINE HCL 25 MG TABS 1 Q. 4 hr. PRN PROM ETHAZINE HCL 08099027616 No Longer Active Adam Yates MD Active INNOPRAN XL 120 MG [id number] Take one by mouth daily 2 PROPRANOLOL HCL SR BEADS 20584968151 No Longer Active Adam Yates MD A ctive FLAGYL 500 MG TABS 1 pill by mouth three times daily, for diarrh ea METRONIDAZOLE 24360678482 No Longer Active Hope Benavidez MD PhD Active DYAZIDE 37.5-25 MG CAPS 1 qd TRIAMTERENE-HC TZ 66743165890 No Longer Active Hope Benavidez MD PhD Active PROZAC 20 MG CAPS 1 q d FLUOXETINE HCL 90848 193318 No Longer Active Hope Benavidez MD PhD Active SIMVASTATIN 40 MG TABS 1 qd SIMVASTATIN 004 93392713 No Longer Active Adam Yates MD Active MELOXICAM 15 MG TABS 1 qd MELOXICAM 4618846 5568 No Longer Active Adam Yates MD Active IMODIUM A-D 2 MG TABS 2 onset at diarrhea and prn. LOPERAMIDE HCL 78241732228 Active Hope Benavidez MD PhD Active EXCEDRIN EXTRA STRENGTH 250-250-65 MG TABS 1-2 q6h PRN headache 201 04/16/21 [id number] 89875907276 Active Hope Benavidez MD PhD Active FLAGYL 500 MG TABS 1 qid METRONIDAZOLE 71997 442826 No Longer Active Adam Yates MD Active LEVAQUIN 750 MG TABS 1 qd LEVOFLOXACIN 5486 1701399 No Longer Active Adam Yates MD Active ADULT ASPIRIN LOW STRENGTH 81 MG TBDP 1 qd A SPIRIN 74277546303 Active Hope Benavidez MD PhD Active LEVAQUIN 750 MG TABS 1 qd LEVAQUIN 750 MG T ABS 151183 LEVOFLOXACIN Inactive FLAGYL 500 MG TABS 1 qid FLAGYL 500 MG TABS 596932 METRONIDAZOLE Inactive MELOXICAM 15 MG TABS 1 qd MELOXICAM 15 MG T ABS 802222 MELOXICAM Inactive SIMVASTATIN 40 MG TABS 1 qd SIMVASTATIN 40 MG TABS 576707 SIMVASTATIN Inactive PROZAC 20 MG CAPS 1 q d PROZAC 20 MG CAPS 31 0385 FLUOXETINE HCL Inactive DYAZIDE 37.5-25 MG CAPS 1 qd DYAZIDE 37.5 -25 MG CAPS 192572 TRIAMTERENE-HCTZ Inactive INNOPRAN XL 120 MG [id number] Take one by mouth daily 2 INNOPRAN XL 120 MG [id number] PROPRANOLOL HCL SR BEADS Inactive PROMETHAZINE HCL 25 MG TABS 1 Q. 4 hr. PRN PROMETHAZINE HCL 25 MG TABS 794280 PROMETHAZINE HCL Inactive POTASSIUM CHLORIDE 20 MEQ PACK by mouth twice a day prn POTASSIUM CHLORIDE 20 MEQ PACK 002067 POTASSIUM CHLORIDE Inactive PHENADOZ 25 MG SUPP 1 every 4 hrs. PRN PHENADOZ 2 5 MG SUPP 811557 PROMETHAZINE HCL Inactive ZOFRAN 8 MG TABS 1 tab by mouth every 12 hours prn 201 05/16/09 ZOFRAN 8 MG TABS 801337 ONDANSETRON HCL Inactive OMEPRAZOLE 20 MG CPDR 1 tablet by mouth daily for GERD OMEPRAZOLE 20 MG CPDR 850206 OMEPRAZOLE Inactive CYCLOBENZAPRINE HCL 10 MG TABS 1 tablet by mouth three times daily as needed for headaches CYCLOBENZAPRINE HCL 10 MG TABS 774198 CYCLOBENZAPRINE HCL Inactive FLAGYL 500 MG TABS 1 pill by mouth three times daily, for diarrh ea FLAGYL 500 MG TABS 837551 METRONIDAZOLE Inactive BACTRIM DS 800-160 MG TABS [...] Range Description Chart Maintenance: labs added to [facility] - Chemistry magnesium, serum 2.0 mg/dL Chart Maintenance: Outside labs entered on [facility] - Chemistry sodium, serum 139 mmol/L potassium, serum 3.9 mmol/L blood glucose 85 mg/dL creatinine, serum 1.26 mg/dL aspartate aminotransferase (SGOT), serum 33 U/L alanine aminotransferase (SGPT), serum 44 U/L alkaline phosphatase, serum 127 U/L Chart Maintenance: Outside labs entered on [facility] - Hematology leukocyte count, blood 4.6 10*3/mm3 hemoglobin, blood 13.6 g/dL platelet count 162 10*3/mm3 Lab Report: Basic Metabolic Panel - Chem istry chloride, serum 99 mmol/L 98-107 carbon dioxide, venous blood 30.7 mmol/L 21.0-32 .0 blood glucose 79 mg/dL 65-110 calcium, serum 8.7 mg/dL 8.5-10.1 urea nitrogen, blood 11 mg/dL 7-18 creatinine, serum 1.10 mg/dL 0.60-1.30 sodium, serum 136 mmol/L 686-456 3692/05/02 potassium, serum 4.1 mmol/L 3.5-5.2 Lab Report: [facility] - Chemistry sodium, serum 141 mmol/L potassium, serum 4.2 mmol/L blood glucose 66 mg/dL creatinine, serum 1.16 mg/dL Lab Report: CBC W/ DIFF, [facility] - Chemistry sodium, serum 137 mmol/L potassium, serum 3.8 mmol/L magnesium, serum 1.2 mg/dL creatinine, serum 1.02 mg/dL blood glucose 79 mg/dL Lab Report: CBC W/ DIFF, [facility] - Hematology platelet count 319 10*3/mm3 hemoglobin, blood 10.8 g/dL leukocyte count, blood 8.7 10*3/mm3 Lab Report: CBC W/DIFF - Hematology lymphocytes as percent of blood leukocytes 12.6 % 20.5-51.1 monocytes as percent of blood leukocytes 8.9 % 1.7-9.3 leukocyte count, blood 3.1 10^3/MM^3 10*3/mm3 4.6-10.2 [...] 11 .6-14.8 platelet count 22 10^3/MM^3 10*3/mm3 476-136 2728/12/10 red blood cell distribution width 18.1 % 11 .6-14.8 platelet count 102 10^3/MM^3 10*3/mm3 672-879 4408/12/10 mean corpuscular hemoglobin concentration, RBC 33.1 G/DL % 31.8-35.4 mean corpuscular hemoglobin, RBC 31.2 pg 27. 0-31.2 mean corpuscular volume, RBC 94 fL 80-97 hematocrit, blood 30.2 % 36.0-46.0 hemoglobin, blood 10.0 g/dL 12.0-16.0 erythrocyte (RBC) count 3.19 10^6/MM^3 10*6/mm3 4.04-5.4 8 neutrophils as percent of blood leukocytes 76.3 % 42.2-75.2 leukocyte count, blood 7.8 10^3/MM^3 10*3/mm3 4.6-10.2 leukocyte count, blood 9.0 10^3/MM^3 10*3/mm3 4.6-10.2 [...] 11 .6-14.8 platelet count 133 10^3/MM^3 10*3/mm3 142-424 Lab Report: CBC W/DIFF, Comp. Metabolic Panel - Chemistry sodium, serum 142 mmol/L 293-005 0181/01/03 potassium, serum 3.4 mmol/L 3.5-5.2 chloride, serum [...] 0.50 mg/dL 0.00-1.00 sodium, serum 139 mmol/L 440-677 7875/01/21 potassium, serum 3.4 mmol/L 3.5-5.2 chloride, serum [...] 0.40 mg/dL 0.00-1.00 sodium, serum 138 mmol/L 233-634 3888/01/28 potassium, serum 3.2 mmol/L 3.5-5.2 chloride, serum [...] 0.40 mg/dL 0.00-1.00 sodium, serum 140 mmol/L 642-597 3053/02/04 potassium, serum 3.6 mmol/L 3.5-5.2 chloride, serum [...] serum, total 0.70 mg/dL 0.00-1.00 sodium, serum 140 mmol/L 044-033 8229/01/06 potassium, serum 3.4 mmol/L 3.5-5.2 chloride, serum 101 mmol/L 98-107 carbon dioxide, venous blood 30.4 mmol/L 21.0-32 .0 blood glucose 112 mg/dL 65-110 urea nitrogen, blood 21 mg/dL 7-18 creatinine, serum 1.40 mg/dL 0.60-1.30 alanine aminotransferase (SGPT), serum 16 U/L - aspartate aminotransferase (SGOT), serum 24 U/L 15-37 alkaline phosphatase, serum 147 U/L 50-136 calcium, serum 8.7 mg/dL 8.5-10.1 bilirubin, serum, total 0.40 mg/dL 0.00-1.00 sodium, serum 136 mmol/L 841-116 0780/04/03 potassium, serum 3.7 mmol/L 3.5-5.2 chloride, serum [...] 0.40 mg/dL 0.00-1.00 sodium, serum 136 mmol/L 349-757 5041/02/11 potassium, serum 3.1 mmol/L 3.5-5.2 chloride, serum [...] 0.50 mg/dL 0.00-1.00 sodium, serum 139 mmol/L 792-664 9401/02/18 potassium, serum 3.6 mmol/L 3.5-5.2 chloride, serum [...] 0.50 mg/dL 0.00-1.00 sodium, serum 138 mmol/L 076-880 6812/08/14 potassium, serum 4.0 mmol/L 3.5-5.2 chloride, serum [...] CBC W/DIFF, Comp. Metabolic Panel - Hematology lymphocytes as percent of blood leukocytes 35.8 % 20.5-51.1 erythrocyte (RBC) count 3.79 10^6/MM^3 10*6/mm3 4.04-5.4 8 hemoglobin, blood 13.4 g/dL 12.0-16.0 leukocyte count, blood 5.8 10^3/MM^3 10*3/mm3 4.6-10.2 neutrophils as percent of blood leukocytes 52.7 % 42.2-75.2 monocytes as percent of blood leukocytes 7.5 % 1.7-9.3 hematocrit, blood 39.5 % 36.0-46.0 leukocyte count, blood 5.6 10^3/MM^3 10*3/mm3 4.6-10.2 [...] 11 .6-14.8 platelet count 246 10^3/MM^3 10*3/mm3 101-804 6615/02/18 leukocyte count, blood 4.0 10^3/MM^3 10*3/mm3 4.6-10.2 [...] 11 .6-14.8 platelet count 134 10^3/MM^3 10*3/mm3 315-439 6428/08/14 mean corpuscular volume, RBC 104 fL 80-97 mean corpuscular hemoglobin, RBC 35.5 pg 27. 0-31.2 mean corpuscular hemoglobin concentration, RBC 34.0 G/DL % 31.8-35.4 red blood cell distribution width 12.5 % 11 .6-14.8 platelet count 193 10^3/MM^3 10*3/mm3 491-941 8855/02/11 leukocyte count, blood 4.8 10^3/MM^3 10*3/mm3 4.6-10.2 [...] 11 .6-14.8 platelet count 102 10^3/MM^3 10*3/mm3 228-998 4815/02/04 leukocyte count, blood 3.6 10^3/MM^3 10*3/mm3 4.6-10.2 [...] 11 .6-14.8 platelet count 70 10^3/MM^3 10*3/mm3 088-848 7640/01/28 leukocyte count, blood 4.2 10^3/MM^3 10*3/mm3 4.6-10.2 [...] 11 .6-14.8 platelet count 73 10^3/MM^3 10*3/mm3 012-916 9508/01/21 leukocyte count, blood 4.9 10^3/MM^3 10*3/mm3 4.6-10.2 [...] .6-14.8 platelet count 38 recounted 10^3/mm^3 10*3/mm3 286-361 1896/01/06 leukocyte count, blood 7.6 10^3/MM^3 10*3/mm3 4.6-10.2 [...] 11 .6-14.8 platelet count 132 10^3/MM^3 10*3/mm3 236-728 0818/01/03 leukocyte count, blood 8.1 10^3/MM^3 10*3/mm3 4.6-10.2 [...] 11 .6-14.8 platelet count 96 10^3/MM^3 10*3/mm3 142-424 Lab Report: CBC W/DIFF, Comp. Metabolic Panel, Manual Diff/Morphology - Chemistry sodium, serum 141 mmol/L 311-450 7540/01/14 potassium, serum 3.9 mmol/L 3.5-5.2 chloride, serum [...] 0.50 mg/dL 0.00-1.00 sodium, serum 140 mmol/L 891-553 8011/12/17 potassium, serum 3.3 mmol/L 3.5-5.2 chloride, serum 98 mmol/L 98-107 carbon dioxide, venous blood 33.1 mmol/L 21.0-32 .0 blood glucose 110 mg/dL 65-110 urea nitrogen, blood 20 mg/dL 7-18 creatinine, serum 1.80 mg/dL 0.60-1.30 alanine aminotransferase (SGPT), serum 25 U/L -78 aspartate aminotransferase (SGOT), serum 27 U/L 15-37 alkaline phosphatase, serum 174 U/L 50-136 calcium, serum 8.2 mg/dL 8.5-10.1 bilirubin, serum, total 0.40 mg/dL 0.00-1.00 sodium, serum 138 mmol/L 824-042 8082/12/24 potassium, serum 3.7 mmol/L 3.5-5.2 chloride, serum 100 mmol/L 98-107 carbon dioxide, venous blood 27.8 mmol/L 21.0-32 .0 blood glucose 87 mg/dL 65-110 urea nitrogen, blood 25 mg/dL 7-18 creatinine, serum 1.30 mg/dL 0.60-1.30 alanine aminotransferase (SGPT), serum 24 U/L 78 aspartate aminotransferase (SGOT), serum 39 U/L 15-37 alkaline phosphatase, serum 256 U/L 50-136 calcium, serum 8.6 mg/dL 8.5-10.1 bilirubin, serum, total 0.50 mg/dL 0.00-1.00 Lab Report: CBC W/DIFF, Comp. Metabolic Panel, Manual Diff/Morphology - Hematology erythrocyte (RBC) count 2.78 10^6/MM^3 10*6/mm3 4.04-5.4 8 neutrophils as percent of blood leukocytes ----- % % 42.2-75.2 monocytes as percent of blood leukocytes 4.3 % 1.7-9.3 lymphocytes as percent of blood leukocytes 7.7 % 20.5-51.1 leukocyte count, blood 14.0 10^3/MM^3 10*3/mm3 4.6-10.2 neutrophils as percent of blood leukocytes 69.2 % 42.2-75.2 erythrocyte (RBC) count 2.72 10^6/MM^3 10*6/mm3 4.04-5.4 8 hemoglobin, blood 8.7 g/dL 12.0-16.0 hematocrit, blood 27.0 % 36.0-46.0 mean corpuscular volume, RBC 99 fL 80-97 hemoglobin, blood 8.8 g/dL 12.0-16.0 leukocyte count, blood 18.6 10^3/MM^3 10*3/mm3 4.6-10.2 mean corpuscular hemoglobin, RBC 32.0 pg 27. 0-31.2 mean corpuscular hemoglobin concentration, RBC 32.3 G/DL % 31.8-35.4 red blood cell distribution width 18.8 % 11 .6-14.8 platelet count 66 10^3/MM^3 10*3/mm3 756-989 7324/12/17 hematocrit, blood 27.3 % 36.0-46.0 mean corpuscular volume, RBC 98 fL 80-97 mean corpuscular hemoglobin, RBC 31.8 pg 27. 0-31.2 mean corpuscular hemoglobin concentration, RBC 32.3 G/DL % 31.8-35.4 red blood cell distribution width 17.6 % 11 .6-14.8 platelet count 75 10^3/MM^3 10*3/mm3 789-967 7061/01/14 leukocyte count, blood 6.2 10^3/MM^3 10*3/mm3 4.6-10.2 [...] 11 .6-14.8 platelet count 22 10^3/MM^3 10*3/mm3 889-666 8084/12/17 monocytes as percent of blood leukocytes 13.5 % 1.7-9.3 lymphocytes as percent of blood leukocytes 14.2 % 20.5-51.1 Lab Report: CBC W/DIFF, Manual Diff/Morp hology [...] - Chem istry sodium, serum 142 mmol/L 289-899 0089/12/10 potassium, serum 3.9 mmol/L 3.5-5.2 chloride, serum 102 mmol/L 98-107 carbon dioxide, venous blood 32.9 mmol/L 21.0-32 .0 blood glucose 86 mg/dL 65-110 urea nitrogen, blood 26 mg/dL 7-18 creatinine, serum 1.30 mg/dL 0.60-1.30 alanine aminotransferase (SGPT), serum 25 U/L 12-78 aspartate aminotransferase (SGOT), serum 30 U/L 15-37 alkaline phosphatase, serum 201 U/L 50-136 calcium, serum 8.5 mg/dL 8.5-10.1 bilirubin, serum, total 0.40 mg/dL 0.00-1.00 Lab Report: Comp. Metabolic Panel, CBC W /DIFF, Manual Diff/Morphology - Chemistry chloride, serum 101 mmol/L 98-107 bilirubin, serum, total 0.40 mg/dL 0.00-1.00 carbon dioxide, venous blood 30.0 mmol/L 21.0-32 .0 blood glucose 101 mg/dL 65-110 sodium, serum 142 mmol/L 137-407 7085/12/31 potassium, serum 3.6 mmol/L 3.5-5.2 urea nitrogen, blood 36 mg/dL 7-18 creatinine, serum 2.20 mg/dL 0.60-1.30 alanine aminotransferase (SGPT), serum 19 U/L 12-78 aspartate aminotransferase (SGOT), serum 24 U/L 15-37 alkaline phosphatase, serum 173 U/L 50-136 calcium, serum 8.5 mg/dL 8.5-10.1 Lab Report: Comp. Metabolic Panel, CBC W [...] Panel - Chemistry cholesterol, serum 209 mg/dL 078-931 3001/09/11 triglyceride, serum, fasting 113 mg/dL 30-200 HDL [...] Negative nitrite, urine, semiquantitative Negative Neg ative appearance, urine SlCloudy Clear specific gravity, urine 1.020 1.000-1.030 pH, urine, semiquantitative 7.0 5.0-8.5 glucose, urine, semiquantitative Negative Neg ative urine color Yellow Colorless;Lightyellow;St raw;Yellow ketones, urine, by test strip Negative Negati ve bilirubin, urine Negative Negative Lab Report: VITAMIN D, 25-HYDROXY/97614, MAGNESIUM/622 - Chemistry vitamin D 25-hydroxy, serum 41 ng/mL 30-100 Encounters Code Encounter Date Provider Facility CPT-19738 Level 4 Est. Patient 19:08:42 ANNUAL GIVING DIRECTOR Hope cohn MD PhD [facility] CPT-95690 Level 4 Est. Patient 20:04:51 CDT Hope cohn MD PhD [facility] CPT-49636 Level 3 New Patient 01:46:11 ANNUAL GIVING DIRECTOR Hope landers MD PhD [facility] Procedures Code Procedure Name Date Entry Date Standard Desc ription CPT-J3420 Vitamin B12 1000mcg (Cyanocobalamin) 09:25:05 ANNUAL GIVING DIRECTOR CPT-13180 Abx/Therapy Injection 09:25:05 ANNUAL GIVING DIRECTOR CPT-G0008 Administration of Influenza Virus Vaccine 13:36:47 CDT CPT-81007 Fluzone High-Dose Intramuscular Suspension 11/15 13:36:47 CDT CPT-J0897 Prolia 60 mg 08:50:41 CDT CPT-37547 Abx/Therapy Injection 08:50:41 CDT CPT-18695 Bone Density 12:06:12 CDT CPT-96286 Bone Density 08:54:40 CDT CPT-OV Office Visit 15:37:02 CDT CPT-89272 Postop F/U Visit 15:47:49 CDT CPT-98362 Postop F/U Visit 15:21:02 CDT CPT-[facility] Transitional Care Mgmt-High 07:52:27 CDT 20 20/06/01 CPT-64441 Venipuncture Draw Fee 13:51:18 CDT CPT-61019 Venipuncture Draw Fee 10:14:55 ANNUAL GIVING DIRECTOR CPT-52874 Venipuncture Draw Fee 13:39:45 ANNUAL GIVING DIRECTOR CPT-OV Office Visit 15:11:22 ANNUAL GIVING DIRECTOR CPT-06042 Venipuncture Draw Fee 09:20:49 ANNUAL GIVING DIRECTOR CPT-96029 Venipuncture Draw Fee 16:52:15 ANNUAL GIVING DIRECTOR CPT-84750 Venipuncture Draw Fee 10:37:24 ANNUAL GIVING DIRECTOR CPT-11690 Venipuncture Draw Fee 08:21:21 ANNUAL GIVING DIRECTOR CPT-56813 Venipuncture Draw Fee 08:30:20 ANNUAL GIVING DIRECTOR CPT-99556 Venipuncture Draw Fee 14:53:21 ANNUAL GIVING DIRECTOR CPT-69995 Venipuncture Draw Fee 09:40:56 ANNUAL GIVING DIRECTOR CPT-50554 Venipuncture Draw Fee 10:30:47 ANNUAL GIVING DIRECTOR CPT-99495 Venipuncture Draw Fee 10:46:17 ANNUAL GIVING DIRECTOR CPT-72365 Venipuncture Draw Fee 11:12:45 ANNUAL GIVING DIRECTOR CPT-58949 Venipuncture Draw Fee 09:53:33 ANNUAL GIVING DIRECTOR CPT-38621 Venipuncture Draw Fee 11:53:51 ANNUAL GIVING DIRECTOR CPT-71722 Venipuncture Draw Fee 10:33:50 ANNUAL GIVING DIRECTOR CPT-20466 Venipuncture Draw Fee 10:05:01 ANNUAL GIVING DIRECTOR CPT-42933 Venipuncture Draw Fee 14:32:52 ANNUAL GIVING DIRECTOR CPT-54683 Venipuncture Draw Fee 09:46:13 ANNUAL GIVING DIRECTOR CPT-43100 Venipuncture Draw Fee 11:34:27 ANNUAL GIVING DIRECTOR CPT-60548 Venipuncture Draw Fee 13:17:16 ANNUAL GIVING DIRECTOR CPT-98120 Venipuncture Draw Fee 12:05:39 CDT CPT-48106 Venipuncture Draw Fee 12:49:12 CDT CPT-98560 Venipuncture Draw Fee 12:37:18 CDT CPT-55409 Venipuncture Draw Fee 10:57:11 CDT CPT-68587 Venipuncture Draw Fee 13:47:40 CDT CPT-44718 Venipuncture Draw Fee 10:02:17 CDT CPT-96972 TB Tubersol 17:32:32 CDT CPT-OV Office Visit 16:21:53 CDT CPT-OV Office Visit 15:49:22 CDT CPT-OV Office Visit 17:16:31 CDT CPT-OV Office Visit 10:43:31 CDT
--- OUTSIDE RECORDS SUMMARY | 2019-02-09 13:05 | XMS REPORT | Clinical Summary ---
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 Dick Yates [...] Generic Name NDC Status Provider Patient Instruction INNOPRAN XL 120 MG [id number] Take one by mouth daily PROPRANOLOL HCL SR BEADS 97158910925 Active Hope Benavidez MD PhD Active POTASSIUM CHLORIDE 20 MEQ PACK by mouth twice a day prn POTASSIUM CHLORIDE 92339962615 Active Adam Yates MD Activ e CYCLOBENZAPRINE HCL 10 MG TABS 1 tablet by mouth three times daily as needed for headaches CYCLOBENZAPRINE HCL 16704560714 Active Selena Yates MD Active SIMVASTATIN 40 MG TABS 1 qd SIMVASTATIN 004 28541020 No Longer Active Adam Yates MD Active MELOXICAM 15 MG TABS 1 qd MELOXICAM 7589201 6849 No Longer Active Adam Yates MD Active ATENOLOL 50 MG TABS 1/2 tab q other day ATENOLOL 40228901058 Active Hope Benavidez MD PhD Active OMEPRAZOLE 20 MG CPDR 1 tablet by mouth daily for GERD OMEPRAZOLE 25973919005 Active Hope Benavidez MD PhD Active IMODIUM A-D 2 MG TABS 2 onset at diarrhea and prn. LOPERAMIDE HCL 27135680213 Active Hope Benavidez MD PhD Active PHENADOZ 25 MG SUPP 1 every 4 hrs. PRN PROMETHAZINE HCL 66022984314 Active Hope Benavidez MD PhD Active PROMETHAZINE HCL 25 MG TABS 1 Q. 4 hr. PRN PROMETH AZINE HCL 32648523805 Active Hope Benavidez MD PhD Active EXCEDRIN EXTRA STRENGTH 250-250-65 MG TABS 1-2 q6h PRN headache 201 04/16/21 [id number] 87892147342 Active Hope Benavidez MD PhD Active PROZAC 20 MG CAPS 1 q d FLUOXETINE HCL 56959125508 Active Fay Alberts Active ZOFRAN 4 MG TABS 1 q 6 hr prn ONDANSETRON HCL 1530115 7002 Active Fay Alberts Active FLAGYL 500 MG TABS 1 qid METRONIDAZOLE 40615 826227 No Longer Active Adam Yates MD Active LEVAQUIN 750 MG TABS 1 qd LEVOFLOXACIN 5486 6119275 No Longer Active Adam Yates MD Active DYAZIDE 37.5-25 MG CAPS 1 qd TRIAMTERENE-HCTZ 5886 5134820 Active Hope Benavidez MD PhD Active ADULT ASPIRIN LOW STRENGTH 81 MG TBDP 1 qd A SPIRIN 20861791518 Active Hope Benavidez MD PhD Active LEVAQUIN 750 MG TABS 1 qd LEVAQUIN 750 MG T ABS 910363 LEVOFLOXACIN Inactive FLAGYL 500 MG TABS 1 qid FLAGYL 500 MG TABS 666238 METRONIDAZOLE Inactive MELOXICAM 15 MG TABS 1 qd MELOXICAM 15 MG T ABS 837839 MELOXICAM Inactive SIMVASTATIN 40 MG TABS 1 qd SIMVASTATIN 40 MG TABS 315037 SIMVASTATIN Inactive Advance Directives Directive Description Start Date [...] - Chem istry sodium, serum 137 mmol/L 303-852 5582/11/01 potassium, serum 3.7 mmol/L 3.5-5.2 chloride, serum 100 mmol/L 98-107 carbon dioxide, venous blood 31.8 mmol/L 21.0-32 .0 blood glucose 98 mg/dL 65-110 calcium, serum 8.6 mg/dL 8.5-10.1 urea nitrogen, blood 23 mg/dL 7-18 creatinine, serum 1.50 mg/dL 0.60-1.30 Lab Report: CBC - Hematology [...] 10^3/mm ^3 10*3/mm3 142-424 Lab Report: CBC W/DIFF - Hematology leukocyte count, blood 10.4 10^3/MM^3 10*3/mm3 4.6-10.2 [...] Verified By Repeat Analysis 10^3/mm ^3 10*3/mm3 706-165 6972/12/10 hemoglobin, blood 10.0 g/dL 12.0-16.0 hematocrit, blood 30.2 % 36.0-46.0 mean corpuscular volume, RBC 94 fL 80-97 mean corpuscular hemoglobin, RBC 31.2 pg 27. 0-31.2 mean corpuscular hemoglobin concentration, RBC 33.1 G/DL % 31.8-35.4 red blood cell distribution width 18.1 % 11 .6-14.8 platelet count 102 10^3/MM^3 10*3/mm3 481-244 8543/12/10 leukocyte count, blood 7.8 10^3/MM^3 10*3/mm3 4.6-10.2 neutrophils as percent of blood leukocytes 76.3 % 42.2-75.2 monocytes as percent of blood leukocytes 8.9 % 1.7-9.3 lymphocytes as percent of blood leukocytes 12.6 % 20.5-51.1 erythrocyte (RBC) count 3.19 10^6/MM^3 10*6/mm3 4.04-5.4 8 leukocyte count, blood 9.0 10^3/MM^3 10*3/mm3 4.6-10.2 [...] 11 .6-14.8 platelet count 133 10^3/MM^3 10*3/mm3 195-449 1701/01/17 leukocyte count, blood 3.1 10^3/MM^3 10*3/mm3 4.6-10.2 [...] 11 .6-14.8 platelet count 22 10^3/MM^3 10*3/mm3 142-424 Lab Report: CBC W/DIFF, Comp. Metabolic Panel - Chemistry sodium, serum 139 mmol/L 847-925 8157/01/21 potassium, serum 3.4 mmol/L 3.5-5.2 chloride, serum [...] 0.40 mg/dL 0.00-1.00 sodium, serum 138 mmol/L 821-221 9907/01/28 potassium, serum 3.2 mmol/L 3.5-5.2 chloride, serum [...] 0.40 mg/dL 0.00-1.00 sodium, serum 140 mmol/L 042-506 9901/02/04 potassium, serum 3.6 mmol/L 3.5-5.2 chloride, serum 100 mmol/L 98-107 carbon dioxide, venous blood 32.9 mmol/L 21.0-32 .0 blood glucose 93 mg/dL 65-110 urea nitrogen, blood 15 mg/dL 7-18 creatinine, serum 1.00 mg/dL 0.60-1.30 alanine aminotransferase (SGPT), serum 14 U/L aspartate aminotransferase (SGOT), serum 17 U/L 15-37 alkaline phosphatase, serum 118 U/L 50-136 calcium, serum 9.1 mg/dL 8.5-10.1 bilirubin, serum, total 0.70 mg/dL 0.00-1.00 sodium, serum 142 mmol/L 711-743 8890/01/03 potassium, serum 3.4 mmol/L 3.5-5.2 chloride, serum [...] serum, total 0.50 mg/dL 0.00-1.00 sodium, serum 136 mmol/L 016-618 9859/02/11 potassium, serum 3.1 mmol/L 3.5-5.2 chloride, serum [...] 0.50 mg/dL 0.00-1.00 sodium, serum 140 mmol/L 894-829 3206/01/06 potassium, serum 3.4 mmol/L 3.5-5.2 chloride, serum 101 mmol/L 98-107 carbon dioxide, venous blood 30.4 mmol/L 21.0-32 .0 blood glucose 112 mg/dL 65-110 urea nitrogen, blood 21 mg/dL 7-18 creatinine, serum 1.40 mg/dL 0.60-1.30 alanine aminotransferase (SGPT), serum 16 U/L 12-78 aspartate aminotransferase (SGOT), serum 24 U/L 15-37 alkaline phosphatase, serum 147 U/L 50-136 calcium, serum 8.7 mg/dL 8.5-10.1 bilirubin, serum, total 0.40 mg/dL 0.00-1.00 sodium, serum 139 mmol/L 890-676 4784/02/18 potassium, serum 3.6 mmol/L 3.5-5.2 chloride, serum [...] serum, total 0.50 mg/dL 0.00-1.00 sodium, serum 136 mmol/L 238-824 7908/04/03 potassium, serum 3.7 mmol/L 3.5-5.2 chloride, serum [...] 0.40 mg/dL 0.00-1.00 sodium, serum 139 mmol/L 085-808 8315/10/17 potassium, serum 3.1 mmol/L 3.5-5.2 sodium, serum 139 mmol/L 337-593 4015/12/03 potassium, serum 3.7 mmol/L 3.5-5.2 chloride, serum [...] 0.40 mg/dL 0.00-1.00 sodium, serum 137 mmol/L 680-520 1384/10/01 potassium, serum 3.5 mmol/L 3.5-5.2 chloride, serum [...] 0.60 mg/dL 0.00-1.00 sodium, serum 136 mmol/L 744-091 8408/10/08 potassium, serum 3.1 mmol/L 3.5-5.2 chloride, serum [...] 8.5-10.1 bilirubin, serum, total 0.60 mg/dL 0.00-1.00 chloride, serum 98 mmol/L 98-107 carbon dioxide, venous blood 29.8 mmol/L 21.0-32 .0 blood glucose 97 mg/dL 65-110 urea nitrogen, blood 8 mg/dL 7-18 creatinine, serum 1.30 mg/dL 0.60-1.30 alanine aminotransferase (SGPT), serum 36 U/L 12-78 aspartate aminotransferase (SGOT), serum 46 U/L 15-37 alkaline phosphatase, serum 127 U/L 50-136 calcium, serum 7.7 mg/dL 8.5-10.1 bilirubin, serum, total 0.30 mg/dL 0.00-1.00 Lab Report: CBC W/DIFF, Comp. Metabolic Panel - Hematology erythrocyte (RBC) count 3.96 10^6/MM^3 10*6/mm3 4.04-5.4 8 lymphocytes as percent of blood leukocytes 14.1 % 20.5-51.1 monocytes as percent of blood leukocytes 6.1 % 1.7-9.3 neutrophils as percent of blood leukocytes 76.0 % 42.2-75.2 leukocyte count, blood 8.3 10^3/MM^3 10*3/mm3 4.6-10.2 leukocyte count, blood 2.9 10^3/MM^3 10*3/mm3 4.6-10.2 hematocrit, blood 31.0 % 36.0-46.0 mean corpuscular volume, RBC 87 fL 80-97 mean corpuscular hemoglobin, RBC 28.5 pg 27. 0-31.2 mean corpuscular hemoglobin concentration, RBC 32.6 G/DL % 31.8-35.4 red blood cell distribution width 17.3 % 11 .6-14.8 platelet count 229 10^3/MM^3 10*3/mm3 871-059 4933/10/17 leukocyte count, blood 12.0 10^3/MM^3 10*3/mm3 4.6-10.2 [...] 11 .6-14.8 platelet count 232 10^3/MM^3 10*3/mm3 891-566 7592/10/01 hemoglobin, blood 11.2 g/dL 12.0-16.0 hematocrit, blood 34.4 % 36.0-46.0 mean corpuscular volume, RBC 87 fL 80-97 mean corpuscular hemoglobin, RBC 28.3 pg 27. 0-31.2 mean corpuscular hemoglobin concentration, RBC 32.6 G/DL % 31.8-35.4 red blood cell distribution width 18.2 % 11 .6-14.8 platelet count 378 10^3/MM^3 10*3/mm3 422-431 1803/12/03 neutrophils as percent of blood leukocytes 70.3 % 42.2-75.2 monocytes as percent of blood leukocytes 10.1 % 1.7-9.3 lymphocytes as percent of blood leukocytes 16.8 % 20.5-51.1 erythrocyte (RBC) count 3.55 10^6/MM^3 10*6/mm3 4.04-5.4 8 hemoglobin, blood 11.0 g/dL 12.0-16.0 neutrophils as percent of blood leukocytes 57.9 % 42.2-75.2 monocytes as percent of blood leukocytes 14.4 % 1.7-9.3 lymphocytes as percent of blood leukocytes 25.6 % 20.5-51.1 erythrocyte (RBC) count 3.55 10^6/MM^3 10*6/mm3 4.04-5.4 8 hemoglobin, blood 10.1 g/dL 12.0-16.0 leukocyte count, blood 5.6 10^3/MM^3 [...] 11 .6-14.8 platelet count 246 10^3/MM^3 10*3/mm3 687-530 9887/02/11 erythrocyte (RBC) count 2.91 10^6/MM^3 10*6/mm3 4.04-5.4 8 lymphocytes as percent of blood leukocytes 21.0 % 20.5-51.1 monocytes as percent of blood leukocytes 7.9 % 1.7-9.3 neutrophils as percent of blood leukocytes 70.0 % 42.2-75.2 leukocyte count, blood 4.8 10^3/MM^3 10*3/mm3 4.6-10.2 leukocyte count, blood 8.2 10^3/MM^3 10*3/mm3 4.6-10.2 hematocrit, blood 33.3 % 36.0-46.0 mean corpuscular volume, RBC 94 fL 80-97 mean corpuscular hemoglobin, RBC 31.1 pg 27. 0-31.2 mean corpuscular hemoglobin concentration, RBC 33.1 G/DL % 31.8-35.4 red blood cell distribution width 17.8 % 11 .6-14.8 platelet count 98 10^3/MM^3 10*3/mm3 899-765 7260/02/18 leukocyte count, blood 4.0 10^3/MM^3 10*3/mm3 4.6-10.2 [...] 11 .6-14.8 platelet count 134 10^3/MM^3 10*3/mm3 433-468 9302/01/06 leukocyte count, blood 7.6 10^3/MM^3 10*3/mm3 4.6-10.2 [...] 11 .6-14.8 platelet count 132 10^3/MM^3 10*3/mm3 212-404 4169/01/03 leukocyte count, blood 8.1 10^3/MM^3 10*3/mm3 4.6-10.2 [...] 11 .6-14.8 platelet count 96 10^3/MM^3 10*3/mm3 151-636 0692/02/11 hemoglobin, blood 9.6 g/dL 12.0-16.0 hematocrit, blood 28.9 % 36.0-46.0 mean corpuscular volume, RBC 99 fL 80-97 mean corpuscular hemoglobin, RBC 32.9 pg 27. 0-31.2 mean corpuscular hemoglobin concentration, RBC 33.1 G/DL % 31.8-35.4 red blood cell distribution width 20.6 % 11 .6-14.8 platelet count 102 10^3/MM^3 10*3/mm3 300-798 4144/02/04 leukocyte count, blood 3.6 10^3/MM^3 10*3/mm3 4.6-10.2 [...] 11 .6-14.8 platelet count 70 10^3/MM^3 10*3/mm3 549-030 9558/01/28 leukocyte count, blood 4.2 10^3/MM^3 10*3/mm3 4.6-10.2 [...] 11 .6-14.8 platelet count 73 10^3/MM^3 10*3/mm3 579-982 2942/01/21 leukocyte count, blood 4.9 10^3/MM^3 10*3/mm3 4.6-10.2 [...] .6-14.8 platelet count 38 recounted 10^3/mm^3 10*3/mm3 142-424 Lab Report: CBC W/DIFF, Comp. Metabolic Panel, Manual Diff/Morphology - Chemistry sodium, serum 141 mmol/L 420-918 9658/01/14 potassium, serum 3.9 mmol/L 3.5-5.2 chloride, serum [...] 0.50 mg/dL 0.00-1.00 sodium, serum 140 mmol/L 337-638 7627/11/12 sodium, serum 137 mmol/L 367-566 3921/11/12 potassium, serum 3.2 mmol/L 3.5-5.2 chloride, serum 96 mmol/L 98-107 carbon dioxide, venous blood 34.5 mmol/L 21.0-32 .0 blood glucose 130 mg/dL 65-110 urea nitrogen, blood 32 mg/dL 7-18 creatinine, serum 1.30 mg/dL 0.60-1.30 alanine aminotransferase (SGPT), serum 40 U/L 12-78 aspartate aminotransferase (SGOT), serum 45 U/L 15-37 alkaline phosphatase, serum 239 U/L 50-136 calcium, serum 8.7 mg/dL 8.5-10.1 bilirubin, serum, total 0.40 mg/dL 0.00-1.00 sodium, serum 141 mmol/L 846-310 1176/11/25 potassium, serum 3.9 mmol/L 3.5-5.2 chloride, serum 100 mmol/L 98-107 carbon dioxide, venous blood 33.0 mmol/L 21.0-32 .0 blood glucose 101 mg/dL 65-110 urea nitrogen, blood 28 mg/dL 7-18 creatinine, serum 1.40 mg/dL 0.60-1.30 alanine aminotransferase (SGPT), serum 26 U/L -78 aspartate aminotransferase (SGOT), serum 27 U/L 15-37 alkaline phosphatase, serum 225 U/L 50-136 calcium, serum 8.6 mg/dL 8.5-10.1 bilirubin, serum, total 0.50 mg/dL 0.00-1.00 potassium, serum 3.3 mmol/L 3.5-5.2 chloride, serum [...] 0.40 mg/dL 0.00-1.00 sodium, serum 138 mmol/L 370-931 4861/12/24 potassium, serum 3.7 mmol/L 3.5-5.2 chloride, serum 100 mmol/L 98-107 carbon dioxide, venous blood 27.8 mmol/L 21.0-32 .0 blood glucose 87 mg/dL 65-110 urea nitrogen, blood 25 mg/dL - creatinine, serum 1.30 mg/dL 0.60-1.30 alanine aminotransferase (SGPT), serum 24 U/L aspartate aminotransferase (SGOT), serum 39 U/L 15-37 alkaline phosphatase, serum 256 U/L 50-136 calcium, serum 8.6 mg/dL 8.5-10.1 bilirubin, serum, total 0.50 mg/dL 0.00-1.00 sodium, serum 138 mmol/L 782-071 0130/11/05 potassium, serum 3.9 mmol/L 3.5-5.2 chloride, serum 98 mmol/L 98-107 carbon dioxide, venous blood 36.2 mmol/L 21.0-32 .0 blood glucose 92 mg/dL 65-110 urea nitrogen, blood 23 mg/dL 7- creatinine, serum 1.60 mg/dL 0.60-1.30 alanine aminotransferase (SGPT), serum 29 U/L aspartate aminotransferase (SGOT), serum 26 U/L 15-37 alkaline phosphatase, serum 195 U/L 50-136 calcium, serum 8.3 mg/dL 8.5-10.1 bilirubin, serum, total 0.40 mg/dL 0.00-1.00 sodium, serum 135 mmol/L 828-706 0747/10/22 potassium, serum 3.0 mmol/L 3.5-5.2 chloride, serum [...] 0.50 mg/dL 0.00-1.00 sodium, serum 128 mmol/L 368-266 3513/10/29 potassium, serum 2.6 mmol/L 3.5-5.2 chloride, serum [...] Manual Diff/Morphology - Hematology leukocyte count, blood 14.7 10^3/MM^3 10*3/mm3 4.6-10.2 [...] 11 .6-14.8 platelet count 428 10^3/MM^3 10*3/mm3 926-456 0557/10/29 leukocyte count, blood 26.3 10^3/MM^3 10*3/mm3 4.6-10.2 [...] 11 .6-14.8 platelet count 268 10^3/MM^3 10*3/mm3 749-785 8396/11/12 leukocyte count, blood 12.1 10^3/MM^3 10*3/mm3 4.6-10.2 [...] 11 .6-14.8 platelet count 157 10^3/MM^3 10*3/mm3 982-809 2730/11/05 leukocyte count, blood 16.4 10^3/MM^3 10*3/mm3 4.6-10.2 [...] 11 .6-14.8 platelet count 215 10^3/MM^3 10*3/mm3 055-492 3732/12/24 leukocyte count, blood 14.0 10^3/MM^3 10*3/mm3 4.6-10.2 [...] 11 .6-14.8 platelet count 66 10^3/MM^3 10*3/mm3 832-699 3983/11/25 neutrophils as percent of blood leukocytes 80.9 % 42.2-75.2 monocytes as percent of blood leukocytes 7.4 % 1.7-9.3 lymphocytes as percent of blood leukocytes 9.3 % 20.5-51.1 erythrocyte (RBC) count 2.23 10^6/MM^3 10*6/mm3 4.04-5.4 8 hemoglobin, blood 6.7 g/dL 12.0-16.0 leukocyte count, blood 21.1 10^3/MM^3 10*3/mm3 4.6-10.2 hematocrit, blood 21.0 % 36.0-46.0 mean corpuscular volume, RBC 94 fL 80-97 mean corpuscular hemoglobin, RBC 30.0 pg 27. 0-31.2 mean corpuscular hemoglobin concentration, RBC 31.8 G/DL % 31.8-35.4 red blood cell distribution width 18.6 % 11 .6-14.8 platelet count 46 10^3/MM^3 10*3/mm3 125-866 4335/01/14 leukocyte count, blood 6.2 10^3/MM^3 10*3/mm3 4.6-10.2 [...] 11 .6-14.8 platelet count 22 10^3/MM^3 10*3/mm3 408-631 2285/12/17 leukocyte count, blood 18.6 10^3/MM^3 10*3/mm3 4.6-10.2 [...] 11 .6-14.8 platelet count 16 10^3/MM^3 10*3/mm3 249-560 8201/07/24 leukocyte count, blood 14.5 10^3/MM^3 10*3/mm3 4.6-10.2 [...] 11 .6-14.8 platelet count 413 10^3/MM^3 10*3/mm3 142-424 Lab Report: CEA - Serology carcinoembryonic antigen <0.5 ng/mL ng/mL carcinoembryonic antigen <0.5 ng/mL ng/mL carcinoembryonic antigen 0.7 ng/mL Lab Report: Comp. Metabolic Panel - Chem istry urea nitrogen, blood 22 mg/dL 7-18 creatinine, serum 1.50 mg/dL 0.60-1.30 alanine aminotransferase (SGPT), serum 38 U/L 12-78 aspartate aminotransferase (SGOT), serum 25 U/L 15-37 alkaline phosphatase, serum 184 U/L 50-136 calcium, serum 9.0 mg/dL 8.5-10.1 bilirubin, serum, total 0.50 mg/dL 0.00-1.00 blood glucose 109 mg/dL 65-110 carbon dioxide, venous blood 32.0 mmol/L 21.0-32 .0 chloride, serum 101 mmol/L 98-107 potassium, serum 3.9 mmol/L 3.5-5.2 sodium, serum 141 mmol/L 114-944 7005/12/10 sodium, serum 142 mmol/L 805-481 7695/12/10 potassium, serum 3.9 mmol/L 3.5-5.2 chloride, serum [...] Diff/Morphology - Chemistry sodium, serum 142 mmol/L 732-522 2909/12/31 potassium, serum 3.6 mmol/L 3.5-5.2 chloride, serum [...] count 61 10^3/MM^3 10*3/mm3 142-424 Lab Report: Potassium - Chemistry potassium, serum 3.8 mmol/L 3.5-5.2 Encounters Code Encounter Date Provider Facility CPT-67472 Level 3 New Patient 01:46:11 [employer] Hope landers MD PhD [facility] Procedures Code Procedure Name Date Entry Date Standard Desc ription CPT-55304 Venipuncture Draw Fee 13:51:18 CDT CPT-14262 Venipuncture Draw Fee 10:14:55 [employer] CPT-63946 Venipuncture Draw Fee 13:39:45 [employer] CPT-OV Office Visit 15:11:22 [employer] CPT-78767 Venipuncture Draw Fee 09:20:49 [employer] CPT-92210 Venipuncture Draw Fee 16:52:15 [employer] CPT-76575 Venipuncture Draw Fee 10:37:24 [employer] CPT-79437 Venipuncture Draw Fee 08:21:21 [employer] CPT-14080 Venipuncture Draw Fee 08:30:20 [employer] CPT-48588 Venipuncture Draw Fee 14:53:21 [employer] CPT-92539 Venipuncture Draw Fee 09:40:56 [employer] CPT-41881 Venipuncture Draw Fee 10:30:47 [employer] CPT-55132 Venipuncture Draw Fee 10:46:17 [employer] CPT-16577 Venipuncture Draw Fee 11:12:45 [employer] CPT-28834 Venipuncture Draw Fee 09:53:33 [employer] CPT-35661 Venipuncture Draw Fee 11:53:51 [employer] CPT-24019 Venipuncture Draw Fee 10:33:50 [employer] CPT-13603 Venipuncture Draw Fee 10:05:01 [employer] CPT-07790 Venipuncture Draw Fee 14:32:52 [employer] CPT-63859 Venipuncture Draw Fee 09:46:13 [employer] CPT-09389 Venipuncture Draw Fee 11:34:27 [employer] CPT-29466 Venipuncture Draw Fee 13:17:16 [employer] CPT-82146 Venipuncture Draw Fee 12:05:39 CDT CPT-87632 Venipuncture Draw Fee 12:49:12 CDT CPT-35253 Venipuncture Draw Fee 12:37:18 CDT CPT-62216 Venipuncture Draw Fee 10:57:11 CDT CPT-10902 Venipuncture Draw Fee 13:47:40 CDT CPT-35731 Venipuncture Draw Fee 10:02:17 CDT CPT-17510 TB Tubersol 17:32:32 CDT CPT-OV Office Visit 16:21:53 CDT CPT-OV Office Visit 15:49:22 CDT CPT-OV Office Visit 17:16:31 CDT CPT-OV Office Visit 10:43:31 CDT
--- OUTSIDE RECORDS SUMMARY | 2019-02-09 13:06 | XMS REPORT | Clinical Summary ---
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 Inac tive Hope Benavidez MD PhD Hyperkalemia ICD-276.7 Inactive Hope Benavidez MD PhD Health maintenance exam ICD-V70.0 Bam Yates MD Medication List Medication Instructions Start Date Stop Date Generic Name NDC Status Provider Patient Instruction PROZAC 20 MG CAPS 1 q d FLUOXETINE HCL 40526 066399 No Longer Active Hope Benavidez MD PhD Active INNOPRAN XL 120 MG [id number] Take one by mouth daily PROPRANOLOL HCL SR BEADS 12167869741 Active Hope Benavidez MD PhD Active POTASSIUM CHLORIDE 20 MEQ PACK by mouth twice a day prn POTASSIUM CHLORIDE 85605251924 Active Adam Yates MD Activ e CYCLOBENZAPRINE HCL 10 MG TABS 1 tablet by mouth three times daily as needed for headaches CYCLOBENZAPRINE HCL 48991870477 Active Selena Yates MD Active SIMVASTATIN 40 MG TABS 1 qd SIMVASTATIN 004 75479457 No Longer Active Adam Yates MD Active MELOXICAM 15 MG TABS 1 qd MELOXICAM 1020037 3483 No Longer Active Adam Yates MD Active ATENOLOL 50 MG TABS 1/2 tab q other day ATENOLOL 36615368511 Active Hope Benavidez MD PhD Active OMEPRAZOLE 20 MG CPDR 1 tablet by mouth daily for GERD OMEPRAZOLE 92765659721 Active Hope Benavidez MD PhD Active IMODIUM A-D 2 MG TABS 2 onset at diarrhea and prn. LOPERAMIDE HCL 80089105103 Active Hope Benavidez MD PhD Active PHENADOZ 25 MG SUPP 1 every 4 hrs. PRN PROMETHAZINE HCL 89422412722 Active Hope Benavidez MD PhD Active PROMETHAZINE HCL 25 MG TABS 1 Q. 4 hr. PRN PROMETH AZINE HCL 35580377332 Active Hope Benavidez MD PhD Active EXCEDRIN EXTRA STRENGTH 250-250-65 MG TABS 1-2 q6h PRN headache 201 04/16/21 [id number] 31563871370 Active Hope Benavidez MD PhD Active ZOFRAN 4 MG TABS 1 q 6 hr prn ONDANSETRON HCL 5168056 7002 Active Fay Lexus Active FLAGYL 500 MG TABS 1 qid METRONIDAZOLE 78956 897591 No Longer Active Adam Yates MD Active LEVAQUIN 750 MG TABS 1 qd LEVOFLOXACIN 5486 9209807 No Longer Active Adam Yates MD Active DYAZIDE 37.5-25 MG CAPS 1 qd TRIAMTERENE-HCTZ 5886 8156587 Active Hope Benavidez MD PhD Active ADULT ASPIRIN LOW STRENGTH 81 MG TBDP 1 qd A SPIRIN 14457936533 Active Hope Benavidez MD PhD Active LEVAQUIN 750 MG TABS 1 qd LEVAQUIN 750 MG T ABS 321356 LEVOFLOXACIN Inactive FLAGYL 500 MG TABS 1 qid FLAGYL 500 MG TABS 772152 METRONIDAZOLE Inactive MELOXICAM 15 MG TABS 1 qd MELOXICAM 15 MG T ABS 813711 MELOXICAM Inactive SIMVASTATIN 40 MG TABS 1 qd SIMVASTATIN 40 MG TABS 398859 SIMVASTATIN Inactive PROZAC 20 MG CAPS 1 [...] Value Unit Range Description blood pressure, diastolic 76 mm[Hg] BP dobson [...] - Chem istry sodium, serum 137 mmol/L 098-852 0588/11/01 potassium, serum 3.7 mmol/L 3.5-5.2 chloride, serum 100 mmol/L 98-107 carbon dioxide, venous blood 31.8 mmol/L 21.0-32 .0 blood glucose 98 mg/dL 65-110 calcium, serum 8.6 mg/dL 8.5-10.1 urea nitrogen, blood 23 mg/dL 7-18 creatinine, serum 1.50 mg/dL 0.60-1.30 sodium, serum 136 mmol/L 431-318 8697/05/02 potassium, serum 4.1 mmol/L 3.5-5.2 chloride, serum [...] 142-424 Lab Report: CBC W/ DIFF, BMP, VANCOT, AN AEROBIC CX - Chemistry sodium, serum 137 mmol/L potassium, serum 3.8 mmol/L blood glucose 79 mg/dL creatinine, serum 1.02 mg/dL magnesium, serum 1.2 mg/dL Lab Report: CBC W/ DIFF, BMP, VANCOT, AN AEROBIC CX - Hematology leukocyte count, [...] 11 .6-14.8 platelet count 133 10^3/MM^3 10*3/mm3 324-516 3251/01/17 leukocyte count, blood 3.1 10^3/MM^3 10*3/mm3 4.6-10.2 [...] 11 .6-14.8 platelet count 22 10^3/MM^3 10*3/mm3 081-762 4500/11/19 leukocyte count, blood 10.4 10^3/MM^3 10*3/mm3 4.6-10.2 [...] Verified By Repeat Analysis 10^3/mm ^3 10*3/mm3 004-289 7370/12/10 leukocyte count, blood 7.8 10^3/MM^3 10*3/mm3 4.6-10.2 [...] Panel - Chemistry sodium, serum 139 mmol/L 639-588 2342/12/03 potassium, serum 3.7 mmol/L 3.5-5.2 chloride, serum [...] 0.40 mg/dL 0.00-1.00 sodium, serum 137 mmol/L 380-285 2227/10/01 potassium, serum 3.5 mmol/L 3.5-5.2 chloride, serum [...] 0.60 mg/dL 0.00-1.00 sodium, serum 136 mmol/L 106-203 6126/10/08 potassium, serum 3.1 mmol/L 3.5-5.2 chloride, serum [...] 0.60 mg/dL 0.00-1.00 sodium, serum 139 mmol/L 647-175 7292/10/17 potassium, serum 3.1 mmol/L 3.5-5.2 chloride, serum [...] 0.30 mg/dL 0.00-1.00 sodium, serum 139 mmol/L 664-981 5508/01/21 potassium, serum 3.4 mmol/L 3.5-5.2 chloride, serum [...] 0.40 mg/dL 0.00-1.00 sodium, serum 138 mmol/L 977-233 1044/01/28 potassium, serum 3.2 mmol/L 3.5-5.2 chloride, serum [...] 0.40 mg/dL 0.00-1.00 sodium, serum 140 mmol/L 914-152 8058/02/04 potassium, serum 3.6 mmol/L 3.5-5.2 chloride, serum [...] 0.70 mg/dL 0.00-1.00 sodium, serum 142 mmol/L 156-584 2131/01/03 potassium, serum 3.4 mmol/L 3.5-5.2 chloride, serum 101 mmol/L 98-107 carbon dioxide, venous blood 31.9 mmol/L 21.0-32 .0 blood glucose 98 mg/dL 65-110 urea nitrogen, blood 23 mg/dL 7-18 creatinine, serum 1.60 mg/dL 0.60-1.30 alanine aminotransferase (SGPT), serum 17 U/L - aspartate aminotransferase (SGOT), serum 21 U/L 15-37 alkaline phosphatase, serum 163 U/L 50-136 calcium, serum 8.5 mg/dL 8.5-10.1 bilirubin, serum, total 0.50 mg/dL 0.00-1.00 sodium, serum 140 mmol/L 401-072 4229/01/06 potassium, serum 3.4 mmol/L 3.5-5.2 chloride, serum [...] 0.40 mg/dL 0.00-1.00 sodium, serum 136 mmol/L 645-877 2187/04/03 potassium, serum 3.7 mmol/L 3.5-5.2 chloride, serum [...] 0.40 mg/dL 0.00-1.00 sodium, serum 136 mmol/L 109-328 1495/02/11 potassium, serum 3.1 mmol/L 3.5-5.2 chloride, serum [...] 0.50 mg/dL 0.00-1.00 sodium, serum 139 mmol/L 373-965 9737/02/18 potassium, serum 3.6 mmol/L 3.5-5.2 chloride, serum [...] 11 .6-14.8 platelet count 246 10^3/MM^3 10*3/mm3 049-968 8874/02/18 leukocyte count, blood 4.0 10^3/MM^3 10*3/mm3 4.6-10.2 [...] 11 .6-14.8 platelet count 134 10^3/MM^3 10*3/mm3 115-678 4330/01/03 leukocyte count, blood 8.1 10^3/MM^3 10*3/mm3 4.6-10.2 [...] 11 .6-14.8 platelet count 96 10^3/MM^3 10*3/mm3 834-182 8282/01/06 leukocyte count, blood 7.6 10^3/MM^3 10*3/mm3 4.6-10.2 [...] 11 .6-14.8 platelet count 132 10^3/MM^3 10*3/mm3 513-077 7661/02/11 leukocyte count, blood 4.8 10^3/MM^3 10*3/mm3 4.6-10.2 [...] 11 .6-14.8 platelet count 102 10^3/MM^3 10*3/mm3 091-279 8001/02/04 leukocyte count, blood 3.6 10^3/MM^3 10*3/mm3 4.6-10.2 [...] 11 .6-14.8 platelet count 70 10^3/MM^3 10*3/mm3 904-328 1202/01/28 leukocyte count, blood 4.2 10^3/MM^3 10*3/mm3 4.6-10.2 [...] 11 .6-14.8 platelet count 73 10^3/MM^3 10*3/mm3 406-076 1576/01/21 leukocyte count, blood 4.9 10^3/MM^3 10*3/mm3 4.6-10.2 [...] .6-14.8 platelet count 38 recounted 10^3/mm^3 10*3/mm3 695-446 9774/10/08 leukocyte count, blood 2.9 10^3/MM^3 10*3/mm3 4.6-10.2 [...] 11 .6-14.8 platelet count 229 10^3/MM^3 10*3/mm3 302-421 7345/10/17 leukocyte count, blood 12.0 10^3/MM^3 10*3/mm3 4.6-10.2 [...] 11 .6-14.8 platelet count 232 10^3/MM^3 10*3/mm3 901-488 1422/10/01 leukocyte count, blood 8.3 10^3/MM^3 10*3/mm3 4.6-10.2 [...] 11 .6-14.8 platelet count 378 10^3/MM^3 10*3/mm3 303-564 7358/12/03 leukocyte count, blood 8.2 10^3/MM^3 10*3/mm3 4.6-10.2 [...] Diff/Morphology - Chemistry sodium, serum 141 mmol/L 997-169 0743/11/25 potassium, serum 3.9 mmol/L 3.5-5.2 chloride, serum [...] 0.50 mg/dL 0.00-1.00 sodium, serum 137 mmol/L 440-170 7230/11/12 potassium, serum 3.2 mmol/L 3.5-5.2 chloride, serum [...] 0.40 mg/dL 0.00-1.00 sodium, serum 140 mmol/L 622-343 7081/12/17 potassium, serum 3.3 mmol/L 3.5-5.2 chloride, serum [...] 0.40 mg/dL 0.00-1.00 sodium, serum 138 mmol/L 347-148 9562/12/24 potassium, serum 3.7 mmol/L 3.5-5.2 chloride, serum [...] 0.50 mg/dL 0.00-1.00 sodium, serum 138 mmol/L 891-847 0813/11/05 potassium, serum 3.9 mmol/L 3.5-5.2 chloride, serum [...] 0.40 mg/dL 0.00-1.00 sodium, serum 135 mmol/L 752-158 5978/10/22 potassium, serum 3.0 mmol/L 3.5-5.2 chloride, serum 93 mmol/L 98-107 carbon dioxide, venous blood 31.6 mmol/L 21.0-32 .0 blood glucose 142 mg/dL 65-110 urea nitrogen, blood 15 mg/dL 7-18 creatinine, serum 1.80 mg/dL 0.60-1.30 alanine aminotransferase (SGPT), serum 45 U/L - aspartate aminotransferase (SGOT), serum 48 U/L - alkaline phosphatase, serum 136 U/L 50-136 calcium, serum 8.3 mg/dL 8.5-10.1 bilirubin, serum, total 0.50 mg/dL 0.00-1.00 sodium, serum 128 mmol/L 265-740 2364/10/29 potassium, serum 2.6 mmol/L 3.5-5.2 chloride, serum [...] 0.50 mg/dL 0.00-1.00 sodium, serum 141 mmol/L 601-814 4000/01/14 potassium, serum 3.9 mmol/L 3.5-5.2 chloride, serum [...] 11 .6-14.8 platelet count 22 10^3/MM^3 10*3/mm3 651-656 4948/10/22 leukocyte count, blood 14.7 10^3/MM^3 10*3/mm3 4.6-10.2 [...] 11 .6-14.8 platelet count 428 10^3/MM^3 10*3/mm3 843-417 3960/10/29 leukocyte count, blood 26.3 10^3/MM^3 10*3/mm3 4.6-10.2 [...] 11 .6-14.8 platelet count 268 10^3/MM^3 10*3/mm3 578-670 6104/11/12 leukocyte count, blood 12.1 10^3/MM^3 10*3/mm3 4.6-10.2 [...] 11 .6-14.8 platelet count 157 10^3/MM^3 10*3/mm3 024-733 6269/11/05 leukocyte count, blood 16.4 10^3/MM^3 10*3/mm3 4.6-10.2 [...] 11 .6-14.8 platelet count 215 10^3/MM^3 10*3/mm3 406-511 5378/12/24 leukocyte count, blood 14.0 10^3/MM^3 10*3/mm3 4.6-10.2 [...] 11 .6-14.8 platelet count 66 10^3/MM^3 10*3/mm3 615-431 5060/12/17 leukocyte count, blood 18.6 10^3/MM^3 10*3/mm3 4.6-10.2 [...] 11 .6-14.8 platelet count 75 10^3/MM^3 10*3/mm3 576-347 1237/11/25 leukocyte count, blood 21.1 10^3/MM^3 10*3/mm3 4.6-10.2 [...] 11 .6-14.8 platelet count 413 10^3/MM^3 10*3/mm3 078-858 0212/01/16 leukocyte count, blood 3.6 10^3/MM^3 10*3/mm3 4.6-10.2 [...] - Chem istry sodium, serum 141 mmol/L 146-223 0434/11/19 potassium, serum 3.9 mmol/L 3.5-5.2 chloride, serum [...] 0.50 mg/dL 0.00-1.00 sodium, serum 142 mmol/L 198-404 1330/12/10 potassium, serum 3.9 mmol/L 3.5-5.2 chloride, serum [...] Diff/Morphology - Chemistry sodium, serum 142 mmol/L 574-858 3490/12/31 potassium, serum 3.6 mmol/L 3.5-5.2 chloride, serum [...] 3.5-5.2 Encounters Code Encounter Date Provider Facility CPT-57752 Level 3 New Patient 01:46:11 [facility] Hope landers MD PhD [facility] Procedures Code Procedure Name Date Entry Date Standard Desc ription [facility] Transitional Care Mgmt-High 07:52:27 CDT 20 20/06/01 CPT-66009 Venipuncture Draw Fee 13:51:18 CDT CPT-76146 Venipuncture Draw Fee 10:14:55 [facility] CPT-43170 Venipuncture Draw Fee 13:39:45 [facility] CPT-OV Office Visit 15:11:22 [facility] CPT-63805 Venipuncture Draw Fee 09:20:49 [facility] CPT-19756 Venipuncture Draw Fee 16:52:15 [facility] CPT-62534 Venipuncture Draw Fee 10:37:24 [facility] CPT-44977 Venipuncture Draw Fee 08:21:21 [facility] CPT-66913 Venipuncture Draw Fee 08:30:20 [facility] CPT-95161 Venipuncture Draw Fee 14:53:21 [facility] CPT-24202 Venipuncture Draw Fee 09:40:56 [facility] CPT-59939 Venipuncture Draw Fee 10:30:47 [facility] CPT-68338 Venipuncture Draw Fee 10:46:17 [facility] CPT-92195 Venipuncture Draw Fee 11:12:45 [facility] CPT-29304 Venipuncture Draw Fee 09:53:33 [facility] CPT-87121 Venipuncture Draw Fee 11:53:51 [facility] CPT-97244 Venipuncture Draw Fee 10:33:50 [facility] CPT-61095 Venipuncture Draw Fee 10:05:01 [facility] CPT-17243 Venipuncture Draw Fee 14:32:52 [facility] CPT-76659 Venipuncture Draw Fee 09:46:13 [facility] CPT-15566 Venipuncture Draw Fee 11:34:27 [facility] CPT-38912 Venipuncture Draw Fee 13:17:16 [facility] CPT-34401 Venipuncture Draw Fee 12:05:39 CDT CPT-01821 Venipuncture Draw Fee 12:49:12 CDT CPT-19778 Venipuncture Draw Fee 12:37:18 CDT CPT-88276 Venipuncture Draw Fee 10:57:11 CDT CPT-94769 Venipuncture Draw Fee 13:47:40 CDT CPT-17212 Venipuncture Draw Fee 10:02:17 CDT CPT-08277 TB Tubersol 17:32:32 CDT CPT-OV Office Visit 16:21:53 CDT CPT-OV Office Visit 15:49:22 CDT CPT-OV Office Visit 17:16:31 CDT CPT-OV Office Visit 10:43:31 CDT
--- OUTSIDE RECORDS SUMMARY | 2019-02-09 13:06 | XMS REPORT | Clinical Summary ---
Author Author Renaldo, Florecita Munoz Organization [facility] Address Unknown Phone Unavailable Allergies, Adverse Reactions, Alerts Allergy Name Reaction Description Start Date Severity Status Pr ovider No Known Allergies Laura Elder Conditions or Problems Problem Name Problem Code Onset Date Status Entry Date Provider Comment Standard Description Annotate HYPERLIPIDEMIA 272.4 Active Kian Joshua APRN Other and unspecified hyperlipidemia HYPERTENSION [...] MD PhD UNSPECIFIED VENOUS INSUFFICIENCY ICD-459.81 [place] ctive Adam Yates MD ADENOCARCINOMA, ASCENDING COLON ICD-153.6 Inac tive Hope Benavidez MD PhD Hyperkalemia ICD-276.7 Inactive Hope Benavidez MD PhD Health maintenance exam ICD-V70.0 Bam Yates MD Weakness ICD-780.79 Inactive Hope Benavidez MD P hD Aftercare following surgery of the teeth,oral cavity a nd digestive system, NEC ICD-V58.75 Bam Yates MD Colon cancer ICD-153.9 Bam luan MD Asymptomatic postmenopausal status (age-related) (natural) I CD-V49.81 Inactive Hope Benavidez MD PhD Dysuria ICD-788.1 Bam Benavidez MD PhD 201 05/19/01 Medication List Medication Instructions Start Date Stop Date Generic Name NDC Status Provider Patient Instruction CYANOCOBALAMIN 1000 MCG/ML INJ SOLN 1 injection every 2 weeks 01/09 CYANOCOBALAMIN 08772816368 Active Laura Elder Active VITAMIN D3 4000 IU 1 tab 3 times daily VITAMIN D3 400 0 IU Active Hope Benavidez MD PhD Active BACTRIM DS 800-160 MG TABS 1 pill by mouth twice daily, for UTI SULFAMETHOXAZOLE-TRIMETHOPRIM 81856226708 No Longer Active Lisa Benavidez MD PhD Active PROLIA 60 MG/ML SOLN 1 shot every 6 months for osteoprosis DENOSUMAB 85656358389 Active Hope Benavidez MD PhD Active CALCIUM + D + K 750-500-40 MG-UNT-MCG TABS 1 tab by mouth tw ice daily CALCIUM-VITAMIN D-VITAMIN K 28032500697 Active Hope landers MD PhD Active DAILY VALUE MULTIVITAMIN TABS 1 tab by mouth twice daily MULTIPLE VITAMIN 65111308532 Active Hope Benavidez MD PhD Active FISH OIL 306 MG CAPS 1 tab by mouth three times daily OMEGA-3 FATTY ACIDS 94566385684 Active Hope Benavidez MD PhD Active LUTEIN 10 MG TABS 1 tab daily LUTEIN 66378651451 Act cash Hope Benavidez MD PhD Active FLORANEX PACK 1 pack three times daily, for bowel health LACTOBACILLUS 10420000053 Active Hope Benavidez MD PhD Active LOMOTIL 2.5-0.025 MG TABS 1 tab by mouth prn DIPHENOXYLATE-ATROPINE 32557128043 Active Hope Benavidez MD PhD Active TRIAMTERENE-HCTZ 37.5-25 MG TABS 1 tab by mouth daily TRIAMTERENE-HCTZ 62535696871 Active Hope Benavidez MD PhD Acti ve IRON 325 (65 FE) MG TABS 1 tab daily FERROUS SULF ATE 08753329134 Active Hope Benavidez MD PhD Active MAGNESIUM GLUCONATE 250 MG TABS 1 tab tid MAGN ESIUM GLUCONATE 32160113631 Active Adam Yates MD Active ATENOLOL 50 MG TABS 1/2 tab q other day m-w-f ATE NOLOL 46995909334 Active Hope Benavidez MD PhD Active PROPRANOLOL HCL 80 MG TABS 1 tab tue. and thur. PROPRANOLOL HCL 49719806977 Active Adam Yates MD Active CYCLOBENZAPRINE HCL 10 MG TABS 1 tablet by mouth three times daily as needed for headaches CYCLOBENZAPRINE HCL 66621958553 No Longe r Active Adam Yates MD Active OMEPRAZOLE 20 MG CPDR 1 tablet by mouth daily for GERD OMEPRAZOLE 91896813673 No Longer Active Adam Yates MD A ctive ZOFRAN 8 MG TABS 1 tab by mouth every 12 hours prn 201 05/16/09 ONDANSETRON HCL 89787543201 No Longer Active Adam Yates MD Active PHENADOZ 25 MG SUPP 1 every 4 hrs. PRN PROMETHA ZINE HCL 73686191793 No Longer Active Adam Yates MD Active POTASSIUM CHLORIDE 20 MEQ PACK by mouth twice a day prn POTASSIUM CHLORIDE 76509159096 No Longer Active Adam Yates MD Active PROMETHAZINE HCL 25 MG TABS 1 Q. 4 hr. PRN PROM ETHAZINE HCL 43053165795 No Longer Active Adam Yates MD Active INNOPRAN XL 120 MG [id number] Take one by mouth daily 2 PROPRANOLOL HCL SR BEADS 89820283855 No Longer Active Adam Yates MD A ctive FLAGYL 500 MG TABS 1 pill by mouth three times daily, for diarrh ea METRONIDAZOLE 84600455466 No Longer Active Hope Benavidez MD PhD Active DYAZIDE 37.5-25 MG CAPS 1 qd TRIAMTERENE-HC TZ 16384966733 No Longer Active Hope Benavidez MD PhD Active PROZAC 20 MG CAPS 1 q d FLUOXETINE HCL 30768 105717 No Longer Active Hope Benavidez MD PhD Active SIMVASTATIN 40 MG TABS 1 qd SIMVASTATIN 004 81359635 No Longer Active Adam Yates MD Active MELOXICAM 15 MG TABS 1 qd MELOXICAM 8430517 5033 No Longer Active Adam Yates MD Active IMODIUM A-D 2 MG TABS 2 onset at diarrhea and prn. LOPERAMIDE HCL 59881703989 Active Hope Benavidez MD PhD Active EXCEDRIN EXTRA STRENGTH 250-250-65 MG TABS 1-2 q6h PRN headache 201 04/16/21 [id number] 48818739237 Active Hope Benavidez MD PhD Active FLAGYL 500 MG TABS 1 qid METRONIDAZOLE 57766 373539 No Longer Active Adam Yates MD Active LEVAQUIN 750 MG TABS 1 qd LEVOFLOXACIN 5486 0165786 No Longer Active Adam Yates MD Active ADULT ASPIRIN LOW STRENGTH 81 MG TBDP 1 qd A SPIRIN 40352422705 Active Hope Benavidez MD PhD Active LEVAQUIN 750 MG TABS 1 qd LEVAQUIN 750 MG T ABS 894936 LEVOFLOXACIN Inactive FLAGYL 500 MG TABS 1 qid FLAGYL 500 MG TABS 168376 METRONIDAZOLE Inactive MELOXICAM 15 MG TABS 1 qd MELOXICAM 15 MG T ABS 963255 MELOXICAM Inactive SIMVASTATIN 40 MG TABS 1 qd SIMVASTATIN 40 MG TABS 005598 SIMVASTATIN Inactive PROZAC 20 MG CAPS 1 q d PROZAC 20 MG CAPS 31 0385 FLUOXETINE HCL Inactive DYAZIDE 37.5-25 MG CAPS 1 qd DYAZIDE 37.5 -25 MG CAPS 526444 TRIAMTERENE-HCTZ Inactive INNOPRAN XL 120 MG [id number] Take one by mouth daily 2 INNOPRAN XL 120 MG [id number] PROPRANOLOL HCL SR BEADS Inactive PROMETHAZINE HCL 25 MG TABS 1 Q. 4 hr. PRN PROMETHAZINE HCL 25 MG TABS 452847 PROMETHAZINE HCL Inactive POTASSIUM CHLORIDE 20 MEQ PACK by mouth twice a day prn POTASSIUM CHLORIDE 20 MEQ PACK 330556 POTASSIUM CHLORIDE Inactive PHENADOZ 25 MG SUPP 1 every 4 hrs. PRN PHENADOZ 2 5 MG SUPP 434890 PROMETHAZINE HCL Inactive ZOFRAN 8 MG TABS 1 tab by mouth every 12 hours prn 201 05/16/09 ZOFRAN 8 MG TABS 305322 ONDANSETRON HCL Inactive OMEPRAZOLE 20 MG CPDR 1 tablet by mouth daily for GERD OMEPRAZOLE 20 MG CPDR 616814 OMEPRAZOLE Inactive CYCLOBENZAPRINE HCL 10 MG TABS 1 tablet by mouth three times daily as needed for headaches CYCLOBENZAPRINE HCL 10 MG TABS 717351 CYCLOBENZAPRINE HCL Inactive FLAGYL 500 MG TABS 1 pill by mouth three times daily, for diarrh ea FLAGYL 500 MG TABS 430472 METRONIDAZOLE Inactive BACTRIM DS 800-160 MG TABS [...] Range Description Chart Maintenance: labs added to [facility] - Chemistry magnesium, serum 2.0 mg/dL Chart Maintenance: Outside labs entered on [email or web address] - Chemistry sodium, serum 139 mmol/L potassium, serum 3.9 mmol/L blood glucose 85 mg/dL creatinine, serum 1.26 mg/dL aspartate aminotransferase (SGOT), serum 33 U/L alanine aminotransferase (SGPT), serum 44 U/L alkaline phosphatase, serum 127 U/L Chart Maintenance: Outside labs entered on [facility] - Hematology leukocyte count, blood 4.6 10*3/mm3 hemoglobin, blood 13.6 g/dL platelet count 162 10*3/mm3 Lab Report: Basic Metabolic Panel - Chem istry sodium, serum 136 mmol/L 311-981 2479/05/02 potassium, serum 4.1 mmol/L 3.5-5.2 chloride, serum 99 mmol/L 98-107 carbon dioxide, venous blood 30.7 mmol/L 21.0-32 .0 blood glucose 79 mg/dL 65-110 calcium, serum 8.7 mg/dL 8.5-10.1 urea nitrogen, blood 11 mg/dL 7-18 creatinine, serum 1.10 mg/dL 0.60-1.30 Lab Report: [facility] - Chemistry sodium, serum 141 mmol/L potassium, serum 4.2 mmol/L blood glucose 66 mg/dL creatinine, serum 1.16 mg/dL Lab Report: CBC W/ DIFF, [facility] - Chemistry sodium, serum 137 mmol/L potassium, serum 3.8 mmol/L blood glucose 79 mg/dL creatinine, serum 1.02 mg/dL magnesium, serum 1.2 mg/dL Lab Report: CBC W/ DIFF, [facility], [facility], AN [facility]EROBIC CX - Hematology leukocyte count, blood 8.7 10*3/mm3 hemoglobin, blood 10.8 g/dL platelet count 319 10*3/mm3 Lab Report: CBC W/DIFF - Hematology leukocyte count, blood 3.1 10^3/MM^3 10*3/mm3 4.6-10.2 [...] Panel - Chemistry sodium, serum 139 mmol/L 236-584 3794/01/21 potassium, serum 3.4 mmol/L 3.5-5.2 chloride, serum [...] 0.40 mg/dL 0.00-1.00 sodium, serum 138 mmol/L 162-909 2597/01/28 potassium, serum 3.2 mmol/L 3.5-5.2 chloride, serum [...] 0.40 mg/dL 0.00-1.00 sodium, serum 140 mmol/L 464-249 1579/02/04 potassium, serum 3.6 mmol/L 3.5-5.2 chloride, serum [...] 0.70 mg/dL 0.00-1.00 sodium, serum 136 mmol/L 374-042 7487/04/03 potassium, serum 3.7 mmol/L 3.5-5.2 chloride, serum [...] 0.40 mg/dL 0.00-1.00 sodium, serum 136 mmol/L 560-783 7996/02/11 potassium, serum 3.1 mmol/L 3.5-5.2 chloride, serum [...] 0.50 mg/dL 0.00-1.00 sodium, serum 139 mmol/L 638-345 5080/02/18 potassium, serum 3.6 mmol/L 3.5-5.2 chloride, serum [...] 0.50 mg/dL 0.00-1.00 sodium, serum 138 mmol/L 028-135 7978/08/14 potassium, serum 4.0 mmol/L 3.5-5.2 chloride, serum [...] 11 .6-14.8 platelet count 246 10^3/MM^3 10*3/mm3 855-066 3535/02/18 leukocyte count, blood 4.0 10^3/MM^3 10*3/mm3 4.6-10.2 [...] 11 .6-14.8 platelet count 134 10^3/MM^3 10*3/mm3 347-989 4644/08/14 leukocyte count, blood 5.8 10^3/MM^3 10*3/mm3 4.6-10.2 [...] 11 .6-14.8 platelet count 193 10^3/MM^3 10*3/mm3 492-848 1868/02/11 leukocyte count, blood 4.8 10^3/MM^3 10*3/mm3 4.6-10.2 [...] 11 .6-14.8 platelet count 102 10^3/MM^3 10*3/mm3 450-149 3576/02/04 leukocyte count, blood 3.6 10^3/MM^3 10*3/mm3 4.6-10.2 [...] 11 .6-14.8 platelet count 70 10^3/MM^3 10*3/mm3 654-182 9012/01/28 leukocyte count, blood 4.2 10^3/MM^3 10*3/mm3 4.6-10.2 [...] 11 .6-14.8 platelet count 73 10^3/MM^3 10*3/mm3 976-770 3482/01/21 leukocyte count, blood 4.9 10^3/MM^3 10*3/mm3 4.6-10.2 [...] 10^3/mm^3 10*3/mm3 142-424 Lab Report: CBC W/DIFF, Manual [...] Panel - Chemistry cholesterol, serum 209 mg/dL 898-866 7208/09/11 triglyceride, serum, fasting 113 mg/dL 30-200 HDL [...] semiquantitative 7.0 5.0-8.5 Lab Report: VITAMIN D, 25-HYDROXY/51987, MAGNESIUM/622 - Chemistry vitamin D 25-hydroxy, serum 41 ng/mL 30-100 Encounters Code Encounter Date Provider Facility CPT-39874 Level 4 Est. Patient 19:08:42 [employer] Hope cohn MD PhD [facility] CPT-10935 Level 4 Est. Patient 20:04:51 CDT Hope cohn MD PhD [facility] CPT-34653 Level 3 New Patient 01:46:11 [employer] Hope landers MD PhD [facility] Procedures Code Procedure Name Date Entry Date Standard Desc ription CPT-J3420 Vitamin B12 1000mcg (Cyanocobalamin) 09:46:44 [facility] [employer] CPT-42995 Abx/Therapy Injection 09:46:44 [employer] CPT-J3420 Vitamin B12 1000mcg (Cyanocobalamin) 09:47:34 [facility] [employer] CPT-69432 Abx/Therapy Injection 09:47:34 [employer] [employer] CPT-J3420 Vitamin B12 1000mcg (Cyanocobalamin) 14:35:50 [employer] CPT-J3420 Vitamin B12 1000mcg (Cyanocobalamin) 09:25:05 [employer] [employer] CPT-69928 Abx/Therapy Injection 09:25:05 [employer] CPT-G0008 Administration of Influenza Virus Vaccine 13:36:47 CDT CPT-78151 Fluzone High-Dose Intramuscular Suspension 11/15 13:36:47 CDT CPT-J0897 Prolia 60 mg 08:50:41 CDT CPT-33783 Abx/Therapy Injection 08:50:41 CDT CPT-61667 Bone Density 12:06:12 CDT CPT-11012 Bone Density 08:54:40 CDT CPT-OV Office Visit 15:37:02 CDT CPT-09916 Postop F/U Visit 15:47:49 CDT CPT-65629 Postop F/U Visit 15:21:02 CDT CPT-FORMERLY [facility] Transitional Care Mgmt-High 07:52:27 CDT 20 20/06/01 CPT-08875 Venipuncture Draw Fee 13:51:18 CDT CPT-43182 Venipuncture Draw Fee 10:14:55 [employer] CPT-26945 Venipuncture Draw Fee 13:39:45 [employer] CPT-OV Office Visit 15:11:22 [employer] CPT-91453 Venipuncture Draw Fee 09:20:49 [employer] CPT-23531 Venipuncture Draw Fee 16:52:15 [employer] CPT-07798 Venipuncture Draw Fee 10:37:24 [employer] CPT-06360 Venipuncture Draw Fee 08:21:21 [employer] CPT-91765 Venipuncture Draw Fee 08:30:20 [employer] CPT-05054 Venipuncture Draw Fee 14:53:21 [employer] CPT-78855 Venipuncture Draw Fee 09:40:56 [employer] CPT-25600 Venipuncture Draw Fee 10:30:47 [employer] CPT-81063 Venipuncture Draw Fee 10:46:17 [employer] CPT-99935 Venipuncture Draw Fee 11:12:45 [employer] CPT-60313 Venipuncture Draw Fee 09:53:33 [employer] CPT-79596 Venipuncture Draw Fee 11:53:51 [employer] CPT-51839 Venipuncture Draw Fee 10:33:50 [employer] CPT-10341 Venipuncture Draw Fee 10:05:01 [employer] CPT-19433 Venipuncture Draw Fee 14:32:52 [employer] CPT-86377 Venipuncture Draw Fee 09:46:13 [employer] CPT-55969 Venipuncture Draw Fee 11:34:27 [employer] 2013/11/ 12 CPT-37646 Venipuncture Draw Fee 13:17:16 [employer] CPT-97139 Venipuncture Draw Fee 12:05:39 CDT CPT-95662 Venipuncture Draw Fee 12:49:12 CDT CPT-34048 Venipuncture Draw Fee 12:37:18 CDT CPT-16481 Venipuncture Draw Fee 10:57:11 CDT CPT-66607 Venipuncture Draw Fee 13:47:40 CDT CPT-67780 Venipuncture Draw Fee 10:02:17 CDT CPT-11844 TB Tubersol 17:32:32 CDT CPT-OV Office Visit 16:21:53 CDT CPT-OV Office Visit 15:49:22 CDT CPT-OV Office Visit 17:16:31 CDT CPT-OV Office Visit 10:43:31 CDT
--- OUTSIDE RECORDS SUMMARY | 2019-02-09 13:07 | XMS REPORT | Clinical Summary ---
Author Author Renaldo, Florecita Munoz Organization [facility] Address Unknown Phone Unavailable Allergies, Adverse Reactions, Alerts Allergy Name Reaction Description Start Date Severity Status Pr ovider No Known Allergies [place]Y [place] Conditions or Problems Problem Name Problem Code [...] history of stroke (cerebrovascular) Colon cancer 153.9 Active Zoila Cano RPT,R MA Malignant neoplasm of colon, unspecified ABDOMINAL PAIN, RIGHT LOWER QUADRANT ICD-789.03 Inactive Kina King AMY ADENOCARCINOMA, COLON, CECUM ICD-153.4 Dick Yates MD ABDOMINAL PAIN, GENERALIZED ICD-789.07 Inactive Hope Benavidez MD PhD FEVER UNSPECIFIED ICD-780.60 Inactive Hope cohn MD PhD UNSPECIFIED VENOUS INSUFFICIENCY ICD-459.81 [place] ctive Adam Yates MD ADENOCARCINOMA, ASCENDING COLON ICD-153.6 Inac tive Hope Benavidez MD PhD Hyperkalemia ICD-276.7 Inactive Hope Benavidez MD PhD Health maintenance exam ICD-V70.0 Bam Yates MD Aftercare following surgery of the teeth,oral cavity a nd digestive system, NEC ICD-V58.75 Inactive Adam Yates MD Medication List Medication Instructions Start Date Stop Date Generic Name NDC Status Provider Patient Instruction ZOFRAN 8 MG TABS 1 tab by mouth every 12 hours prn ONDANSETRON HCL 56235096440 Active Laura Elder Active FLAGYL 500 MG TABS 1 pill by mouth three times daily, for diarrh ea METRONIDAZOLE 47707243361 No Longer Active Hope Benavidez MD PhD Active MAGNESIUM GLUCONATE 250 MG TABS 1 tab daily MAG NESIUM GLUCONATE 00301996660 Active Hope Benavidez MD PhD Active DYAZIDE 37.5-25 MG CAPS 1 qd TRIAMTERENE-HC TZ 54668294311 No Longer Active Hope Benavidez MD PhD Active PROZAC 20 MG CAPS 1 q d FLUOXETINE HCL 48818 000897 No Longer Active Hope Benavidez MD PhD Active INNOPRAN XL 120 MG [id number] Take one by mouth daily PROPRANOLOL HCL SR BEADS 87852933375 Active Hoep Benavidez MD PhD Active POTASSIUM CHLORIDE 20 MEQ PACK by mouth twice a day prn POTASSIUM CHLORIDE 59957983711 Active Adam Yates MD Activ e CYCLOBENZAPRINE HCL 10 MG TABS 1 tablet by mouth three times daily as needed for headaches CYCLOBENZAPRINE HCL 59567353481 Active Selena Yates MD Active SIMVASTATIN 40 MG TABS 1 qd SIMVASTATIN 004 98380683 No Longer Active Adam Yates MD Active MELOXICAM 15 MG TABS 1 qd MELOXICAM 3289554 5957 No Longer Active Adam Yates MD Active ATENOLOL 50 MG TABS 1/2 tab q other day ATENOLOL 27565897448 Active Hope Benavidez MD PhD Active OMEPRAZOLE 20 MG CPDR 1 tablet by mouth daily for GERD OMEPRAZOLE 02362990294 Active Hope Benavidez MD PhD Active IMODIUM A-D 2 MG TABS 2 onset at diarrhea and prn. LOPERAMIDE HCL 31052884663 Active Hope Benavidez MD PhD Active PHENADOZ 25 MG SUPP 1 every 4 hrs. PRN PROMETHAZINE HCL 12752089553 Active Hope Benavidez MD PhD Active PROMETHAZINE HCL 25 MG TABS 1 Q. 4 hr. PRN PROMETH AZINE HCL 93564367461 Active Hope Benavidez MD PhD Active EXCEDRIN EXTRA STRENGTH 250-250-65 MG TABS 1-2 q6h PRN headache 201 04/16/21 [id number] 92966904601 Active Hope Benavidez MD PhD Active FLAGYL 500 MG TABS 1 qid METRONIDAZOLE 61151 669313 No Longer Active Adam Yates MD Active LEVAQUIN 750 MG TABS 1 qd LEVOFLOXACIN 5486 0368984 No Longer Active Adam Yates MD Active ADULT ASPIRIN LOW STRENGTH 81 MG TBDP 1 qd A SPIRIN 85918942635 Active Hope Benavidez MD PhD Active LEVAQUIN 750 MG TABS 1 qd LEVAQUIN 750 MG T ABS 060324 LEVOFLOXACIN Inactive FLAGYL 500 MG TABS 1 qid FLAGYL 500 MG TABS 307541 METRONIDAZOLE Inactive MELOXICAM 15 MG TABS 1 qd MELOXICAM 15 MG T ABS 681239 MELOXICAM Inactive SIMVASTATIN 40 MG TABS 1 qd SIMVASTATIN 40 MG TABS 082557 SIMVASTATIN Inactive PROZAC 20 MG CAPS 1 q d PROZAC 20 MG CAPS 31 0385 FLUOXETINE HCL Inactive DYAZIDE 37.5-25 MG CAPS 1 qd DYAZIDE 37.5 -25 MG CAPS 869401 TRIAMTERENE-HCTZ Inactive FLAGYL 500 MG TABS 1 pill by mouth three times daily, for diarrh ea FLAGYL 500 MG TABS 925949 METRONIDAZOLE Inactive Advance Directives Directive Description Start [...] - Chem istry sodium, serum 137 mmol/L 314-029 9602/11/01 potassium, serum 3.7 mmol/L 3.5-5.2 chloride, serum 100 mmol/L 98-107 carbon dioxide, venous blood 31.8 mmol/L 21.0-32 .0 blood glucose 98 mg/dL 65-110 calcium, serum 8.6 mg/dL 8.5-10.1 urea nitrogen, blood 23 mg/dL 7-18 creatinine, serum 1.50 mg/dL 0.60-1.30 sodium, serum 136 mmol/L 543-006 8027/05/02 potassium, serum 4.1 mmol/L 3.5-5.2 chloride, serum 99 mmol/L 98-107 carbon dioxide, venous blood 30.7 mmol/L 21.0-32 .0 blood glucose 79 mg/dL 65-110 calcium, serum 8.7 mg/dL 8.5-10.1 urea nitrogen, blood 11 mg/dL 7-18 creatinine, serum 1.10 mg/dL 0.60-1.30 Lab Report: [facility] - Chemistry sodium, serum 141 mmol/L potassium, serum 4.2 mmol/L blood glucose 66 mg/dL creatinine, serum 1.16 mg/dL Lab Report: CBC W/ DIFF, YANCI ESCOTO AN AEROBIC CX - Chemistry sodium, serum 137 mmol/L potassium, serum 3.8 mmol/L blood glucose 79 mg/dL creatinine, serum 1.02 mg/dL magnesium, serum 1.2 mg/dL Lab Report: CBC W/ DIFF, YANCI ESCOTO AN AEROBIC CX - Hematology leukocyte count, [...] 11 .6-14.8 platelet count 133 10^3/MM^3 10*3/mm3 137-293 2385/01/17 leukocyte count, blood 3.1 10^3/MM^3 10*3/mm3 4.6-10.2 [...] 11 .6-14.8 platelet count 22 10^3/MM^3 10*3/mm3 402-065 2758/11/19 leukocyte count, blood 10.4 10^3/MM^3 10*3/mm3 4.6-10.2 [...] Verified By Repeat Analysis 10^3/mm ^3 10*3/mm3 483-488 5774/12/10 leukocyte count, blood 7.8 10^3/MM^3 10*3/mm3 4.6-10.2 [...] Panel - Chemistry sodium, serum 139 mmol/L 509-592 2470/12/03 potassium, serum 3.7 mmol/L 3.5-5.2 chloride, serum [...] 0.40 mg/dL 0.00-1.00 sodium, serum 142 mmol/L 658-135 3089/01/03 potassium, serum 3.4 mmol/L 3.5-5.2 chloride, serum [...] 0.50 mg/dL 0.00-1.00 sodium, serum 137 mmol/L 341-133 3231/10/01 potassium, serum 3.5 mmol/L 3.5-5.2 chloride, serum [...] 0.60 mg/dL 0.00-1.00 sodium, serum 136 mmol/L 131-518 9509/10/08 potassium, serum 3.1 mmol/L 3.5-5.2 chloride, serum [...] 0.60 mg/dL 0.00-1.00 sodium, serum 139 mmol/L 064-176 4239/10/17 potassium, serum 3.1 mmol/L 3.5-5.2 chloride, serum [...] 0.30 mg/dL 0.00-1.00 sodium, serum 140 mmol/L 746-076 5004/01/06 potassium, serum 3.4 mmol/L 3.5-5.2 chloride, serum [...] 0.40 mg/dL 0.00-1.00 sodium, serum 139 mmol/L 287-235 4861/01/21 potassium, serum 3.4 mmol/L 3.5-5.2 chloride, serum [...] 0.40 mg/dL 0.00-1.00 sodium, serum 138 mmol/L 424-763 2205/01/28 potassium, serum 3.2 mmol/L 3.5-5.2 chloride, serum [...] 0.40 mg/dL 0.00-1.00 sodium, serum 140 mmol/L 666-869 4890/02/04 potassium, serum 3.6 mmol/L 3.5-5.2 chloride, serum [...] 0.70 mg/dL 0.00-1.00 sodium, serum 136 mmol/L 732-933 1195/02/11 potassium, serum 3.1 mmol/L 3.5-5.2 chloride, serum [...] 0.50 mg/dL 0.00-1.00 sodium, serum 138 mmol/L 396-004 7997/08/14 potassium, serum 4.0 mmol/L 3.5-5.2 chloride, serum 100 mmol/L 98-107 carbon dioxide, venous blood 28.7 mmol/L 21.0-32 .0 blood glucose 87 mg/dL 65-110 urea nitrogen, blood 25 mg/dL 7-18 creatinine, serum 1.20 mg/dL 0.60-1.30 alanine aminotransferase (SGPT), serum 38 U/L -78 aspartate aminotransferase (SGOT), serum 32 U/L 15-37 alkaline phosphatase, serum 198 U/L 50-136 calcium, serum 9.8 mg/dL 8.5-10.1 bilirubin, serum, total 0.40 mg/dL 0.00-1.00 sodium, serum 136 mmol/L 847-757 4769/04/03 potassium, serum 3.7 mmol/L 3.5-5.2 chloride, serum [...] 0.40 mg/dL 0.00-1.00 sodium, serum 139 mmol/L 495-160 5668/02/18 potassium, serum 3.6 mmol/L 3.5-5.2 chloride, serum [...] 11 .6-14.8 platelet count 246 10^3/MM^3 10*3/mm3 621-598 1257/08/14 leukocyte count, blood 5.8 10^3/MM^3 10*3/mm3 4.6-10.2 [...] 11 .6-14.8 platelet count 193 10^3/MM^3 10*3/mm3 242-772 3099/02/18 leukocyte count, blood 4.0 10^3/MM^3 10*3/mm3 4.6-10.2 [...] 11 .6-14.8 platelet count 134 10^3/MM^3 10*3/mm3 119-787 4913/02/11 leukocyte count, blood 4.8 10^3/MM^3 10*3/mm3 4.6-10.2 [...] 11 .6-14.8 platelet count 102 10^3/MM^3 10*3/mm3 345-291 1939/02/04 leukocyte count, blood 3.6 10^3/MM^3 10*3/mm3 4.6-10.2 [...] 11 .6-14.8 platelet count 70 10^3/MM^3 10*3/mm3 509-646 3001/01/28 leukocyte count, blood 4.2 10^3/MM^3 10*3/mm3 4.6-10.2 [...] 11 .6-14.8 platelet count 73 10^3/MM^3 10*3/mm3 540-822 3990/01/03 leukocyte count, blood 8.1 10^3/MM^3 10*3/mm3 4.6-10.2 [...] 11 .6-14.8 platelet count 96 10^3/MM^3 10*3/mm3 632-850 6534/01/21 leukocyte count, blood 4.9 10^3/MM^3 10*3/mm3 4.6-10.2 [...] .6-14.8 platelet count 38 recounted 10^3/mm^3 10*3/mm3 300-610 5750/10/08 leukocyte count, blood 2.9 10^3/MM^3 10*3/mm3 4.6-10.2 [...] 11 .6-14.8 platelet count 229 10^3/MM^3 10*3/mm3 647-120 7565/10/17 leukocyte count, blood 12.0 10^3/MM^3 10*3/mm3 4.6-10.2 [...] 11 .6-14.8 platelet count 232 10^3/MM^3 10*3/mm3 771-172 2547/10/01 leukocyte count, blood 8.3 10^3/MM^3 10*3/mm3 4.6-10.2 [...] 11 .6-14.8 platelet count 378 10^3/MM^3 10*3/mm3 005-089 0183/01/06 leukocyte count, blood 7.6 10^3/MM^3 10*3/mm3 4.6-10.2 [...] 11 .6-14.8 platelet count 132 10^3/MM^3 10*3/mm3 023-429 9368/12/03 leukocyte count, blood 8.2 10^3/MM^3 10*3/mm3 4.6-10.2 [...] Diff/Morphology - Chemistry sodium, serum 141 mmol/L 560-406 3743/11/25 potassium, serum 3.9 mmol/L 3.5-5.2 chloride, serum [...] 0.50 mg/dL 0.00-1.00 sodium, serum 137 mmol/L 172-702 6640/11/12 potassium, serum 3.2 mmol/L 3.5-5.2 chloride, serum [...] 0.40 mg/dL 0.00-1.00 sodium, serum 140 mmol/L 594-865 0234/12/17 potassium, serum 3.3 mmol/L 3.5-5.2 chloride, serum [...] 0.40 mg/dL 0.00-1.00 sodium, serum 138 mmol/L 526-331 1270/12/24 potassium, serum 3.7 mmol/L 3.5-5.2 chloride, serum [...] 0.50 mg/dL 0.00-1.00 sodium, serum 135 mmol/L 125-575 4055/10/22 potassium, serum 3.0 mmol/L 3.5-5.2 chloride, serum [...] 0.50 mg/dL 0.00-1.00 sodium, serum 138 mmol/L 734-005 7683/11/05 potassium, serum 3.9 mmol/L 3.5-5.2 chloride, serum 98 mmol/L 98-107 carbon dioxide, venous blood 36.2 mmol/L 21.0-32 .0 blood glucose 92 mg/dL 65-110 urea nitrogen, blood 23 mg/dL 7-18 creatinine, serum 1.60 mg/dL 0.60-1.30 alanine aminotransferase (SGPT), serum 29 U/L 12- aspartate aminotransferase (SGOT), serum 26 U/L 15-37 alkaline phosphatase, serum 195 U/L 50-136 calcium, serum 8.3 mg/dL 8.5-10.1 bilirubin, serum, total 0.40 mg/dL 0.00-1.00 sodium, serum 128 mmol/L 723-584 4749/10/29 potassium, serum 2.6 mmol/L 3.5-5.2 chloride, serum [...] 0.50 mg/dL 0.00-1.00 sodium, serum 141 mmol/L 506-081 8427/01/14 potassium, serum 3.9 mmol/L 3.5-5.2 chloride, serum 101 mmol/L 98-107 carbon dioxide, venous blood 30.4 mmol/L 21.0-32 .0 blood glucose 109 mg/dL 65-110 urea nitrogen, blood 23 mg/dL 7-18 creatinine, serum 1.30 mg/dL 0.60-1.30 alanine aminotransferase (SGPT), serum 19 U/L - aspartate aminotransferase (SGOT), serum 28 U/L 15-37 [...] 11 .6-14.8 platelet count 22 10^3/MM^3 10*3/mm3 595-985 9110/10/22 leukocyte count, blood 14.7 10^3/MM^3 10*3/mm3 4.6-10.2 [...] 11 .6-14.8 platelet count 428 10^3/MM^3 10*3/mm3 165-600 8726/11/05 leukocyte count, blood 16.4 10^3/MM^3 10*3/mm3 4.6-10.2 [...] 11 .6-14.8 platelet count 215 10^3/MM^3 10*3/mm3 847-650 9164/11/12 leukocyte count, blood 12.1 10^3/MM^3 10*3/mm3 4.6-10.2 [...] 11 .6-14.8 platelet count 157 10^3/MM^3 10*3/mm3 940-660 4242/10/29 leukocyte count, blood 26.3 10^3/MM^3 10*3/mm3 4.6-10.2 [...] 11 .6-14.8 platelet count 268 10^3/MM^3 10*3/mm3 621-647 0622/12/24 leukocyte count, blood 14.0 10^3/MM^3 10*3/mm3 4.6-10.2 [...] 11 .6-14.8 platelet count 66 10^3/MM^3 10*3/mm3 433-466 6660/11/25 leukocyte count, blood 21.1 10^3/MM^3 10*3/mm3 4.6-10.2 [...] 11 .6-14.8 platelet count 46 10^3/MM^3 10*3/mm3 854-561 2348/12/17 leukocyte count, blood 18.6 10^3/MM^3 10*3/mm3 4.6-10.2 [...] - Chem istry sodium, serum 141 mmol/L 594-615 3757/11/19 potassium, serum 3.9 mmol/L 3.5-5.2 chloride, serum [...] 0.50 mg/dL 0.00-1.00 sodium, serum 142 mmol/L 840-685 6176/12/10 potassium, serum 3.9 mmol/L 3.5-5.2 chloride, serum [...] Diff/Morphology - Chemistry sodium, serum 142 mmol/L 009-968 0601/12/31 potassium, serum 3.6 mmol/L 3.5-5.2 chloride, serum [...] - Hematology hemoglobin, blood 11.2 g/dL 12.0-16.0 Encounters Code Encounter Date Provider Facility CPT-84764 Level 3 New Patient 01:46:11 [employer] Hope landers MD PhD [facility] Procedures Code Procedure Name Date Entry Date Standard Desc ription CPT-94790 Postop F/U Visit 15:47:49 CDT CPT-08570 Postop F/U Visit 15:21:02 CDT CPT-TCMH Transitional Care Mgmt-High 07:52:27 CDT 20 20/06/01 CPT-49443 Venipuncture Draw Fee 13:51:18 CDT CPT-44303 Venipuncture Draw Fee 10:14:55 [employer] CPT-41035 Venipuncture Draw Fee 13:39:45 [employer] CPT-OV Office Visit 15:11:22 [employer] CPT-58439 Venipuncture Draw Fee 09:20:49 [employer] CPT-46069 Venipuncture Draw Fee 16:52:15 [employer] CPT-22265 Venipuncture Draw Fee 10:37:24 [employer] CPT-85357 Venipuncture Draw Fee 08:21:21 [employer] CPT-33181 Venipuncture Draw Fee 08:30:20 [employer] CPT-54943 Venipuncture Draw Fee 14:53:21 [employer] CPT-93140 Venipuncture Draw Fee 09:40:56 [employer] CPT-29771 Venipuncture Draw Fee 10:30:47 [employer] CPT-90439 Venipuncture Draw Fee 10:46:17 [employer] CPT-11447 Venipuncture Draw Fee 11:12:45 [employer] CPT-43094 Venipuncture Draw Fee 09:53:33 [employer] CPT-21900 Venipuncture Draw Fee 11:53:51 [employer] SOC[employer] CPT-51067 Venipuncture Draw Fee 10:33:50 [employer] SOC[employer] CPT-87454 Venipuncture Draw Fee 10:05:01 [employer] CPT-71615 Venipuncture Draw Fee 14:32:52 [employer] CPT-38482 Venipuncture Draw Fee 09:46:13 [employer] CPT-77207 Venipuncture Draw Fee 11:34:27 [employer] CPT-84489 Venipuncture Draw Fee 13:17:16 [employer] CPT-28337 Venipuncture Draw Fee 12:05:39 CDT CPT-25797 Venipuncture Draw Fee 12:49:12 CDT CPT-23362 Venipuncture Draw Fee 12:37:18 CDT CPT-86576 Venipuncture Draw Fee 10:57:11 CDT CPT-67856 Venipuncture Draw Fee 13:47:40 CDT CPT-46956 Venipuncture Draw Fee 10:02:17 CDT CPT-55176 TB Tubersol 17:32:32 CDT CPT-OV Office Visit 16:21:53 CDT CPT-OV Office Visit 15:49:22 CDT CPT-OV Office Visit 17:16:31 CDT CPT-OV Office Visit 10:43:31 CDT
--- OUTSIDE RECORDS SUMMARY | 2019-02-09 13:07 | XMS REPORT | Clinical Summary ---
Author Author Renaldo, Florecita Munoz Organization [facility] Address Unknown Phone Unavailable Allergies, [...] status (age-related) (natural) V49.8 1 Active Citlaly Watkins [facility] Asymptomatic postmenopausal status (age- related) (natural) ABDOMINAL PAIN, RIGHT LOWER QUADRANT ICD-789.03 Inactive [...] mouth tw ice daily CALCIUM-VITAMIN D-VITAMIN K 38164170479 Active Hope landers MD PhD Active DAILY VALUE MULTIVITAMIN TABS 1 tab by mouth twice daily MULTIPLE VITAMIN 54521894900 Active Hope Benavidez MD PhD Active FISH OIL 306 MG CAPS 1 tab by mouth three times daily OMEGA-3 FATTY ACIDS 22737909381 Active Hope Benavidez MD PhD Active LUTEIN 10 MG TABS 1 tab daily LUTEIN 90490222131 Act cash Hope Benavidez MD PhD Active FLORANEX PACK 1 pack three times daily, for bowel health LACTOBACILLUS 84405944894 Active Hope Benavidez MD PhD Active LOMOTIL 2.5-0.025 MG TABS 1 tab by mouth prn DIPHENOXYLATE-ATROPINE 36183785512 Active Hope Benavidez MD PhD Active TRIAMTERENE-HCTZ 37.5-25 MG TABS 1 tab by mouth daily TRIAMTERENE-HCTZ 77103769899 Active Hope Benavidez MD PhD Acti ve IRON 325 (65 FE) MG TABS 1 tab daily FERROUS SULF ATE 42478337171 Active Hope Benavidez MD PhD Active MAGNESIUM GLUCONATE 250 MG TABS 1 tab tid MAGN ESIUM GLUCONATE 58577132609 Active Adam Yates MD Active ATENOLOL 50 MG TABS 1/2 tab q other day m-w-f ATE NOLOL 81789324356 Active Adam Yates MD Active PROPRANOLOL HCL 80 MG TABS 1 tab tue. and thur. PROPRANOLOL HCL 00487703264 Active Adam Yates MD Active CYCLOBENZAPRINE HCL 10 MG TABS 1 tablet by mouth three times daily as needed for headaches CYCLOBENZAPRINE HCL 57707524658 No Longe r Active Adam Yates MD Active OMEPRAZOLE 20 MG CPDR 1 tablet by mouth daily for GERD OMEPRAZOLE 10089767827 No Longer Active Adam Yates MD A ctive ZOFRAN 8 MG TABS 1 tab by mouth every 12 hours prn 201 05/16/09 ONDANSETRON HCL 34720879385 No Longer Active Adam Yates MD Active PHENADOZ 25 MG SUPP 1 every 4 hrs. PRN PROMETHA ZINE HCL 98492973096 No Longer Active Adam Yates MD Active POTASSIUM CHLORIDE 20 MEQ PACK by mouth twice a day prn POTASSIUM CHLORIDE 10386541954 No Longer Active Adam Yates MD Active PROMETHAZINE HCL 25 MG TABS 1 Q. 4 hr. PRN PROM ETHAZINE HCL 42585743292 No Longer Active Adam Yates MD Active INNOPRAN XL 120 MG [id number] Take one by mouth daily 2 PROPRANOLOL HCL SR BEADS 53949952607 No Longer Active Adam Yates MD A ctive FLAGYL 500 MG TABS 1 pill by mouth three times daily, for diarrh ea METRONIDAZOLE 82130725606 No Longer Active Hope Benavidez MD PhD Active DYAZIDE 37.5-25 MG CAPS 1 qd TRIAMTERENE-HC TZ 98778404439 No Longer Active Hope Benavidez MD PhD Active PROZAC 20 MG CAPS 1 q d FLUOXETINE HCL 68683 609597 No Longer Active Hope Benavidez MD PhD Active SIMVASTATIN 40 MG TABS 1 qd SIMVASTATIN 004 47748235 No Longer Active Adam Yates MD Active MELOXICAM 15 MG TABS 1 qd MELOXICAM 9789626 8654 No Longer Active Adam Yates MD Active IMODIUM A-D 2 MG TABS 2 onset at diarrhea and prn. LOPERAMIDE HCL 54803341498 Active Hope Benavidez MD PhD Active EXCEDRIN EXTRA STRENGTH 250-250-65 MG TABS 1-2 q6h PRN headache 201 04/16/21 [id number] 69220622033 Active Hope Benavidez MD PhD Active FLAGYL 500 MG TABS 1 qid METRONIDAZOLE 15047 149412 No Longer Active Adam Yates MD Active LEVAQUIN 750 MG TABS 1 qd LEVOFLOXACIN 5486 6002428 No Longer Active Adam Yates MD Active ADULT ASPIRIN LOW STRENGTH 81 MG TBDP 1 qd A SPIRIN 06859651049 Active Hope Benavidez MD PhD Active LEVAQUIN 750 MG TABS 1 qd LEVAQUIN 750 MG T ABS 844191 LEVOFLOXACIN Inactive FLAGYL 500 MG TABS 1 qid FLAGYL 500 MG TABS 219618 METRONIDAZOLE Inactive MELOXICAM 15 MG TABS 1 qd MELOXICAM 15 MG T ABS 978038 MELOXICAM Inactive SIMVASTATIN 40 MG TABS 1 qd SIMVASTATIN 40 MG TABS 697637 SIMVASTATIN Inactive PROZAC 20 MG CAPS 1 q d PROZAC 20 MG CAPS 31 0385 FLUOXETINE HCL Inactive DYAZIDE 37.5-25 MG CAPS 1 qd DYAZIDE 37.5 -25 MG CAPS 418813 TRIAMTERENE-HCTZ Inactive INNOPRAN XL 120 MG [id number] Take one by mouth daily 2 INNOPRAN XL 120 MG [id number] PROPRANOLOL HCL SR BEADS Inactive PROMETHAZINE HCL 25 MG TABS 1 Q. 4 hr. PRN PROMETHAZINE HCL 25 MG TABS 854804 PROMETHAZINE HCL Inactive POTASSIUM CHLORIDE 20 MEQ PACK by mouth twice a day prn POTASSIUM CHLORIDE 20 MEQ PACK 330461 POTASSIUM CHLORIDE Inactive PHENADOZ 25 MG SUPP 1 every 4 hrs. PRN PHENADOZ 2 5 MG SUPP 605258 PROMETHAZINE HCL Inactive ZOFRAN 8 MG TABS 1 tab by mouth every 12 hours prn 201 05/16/09 ZOFRAN 8 MG TABS 637033 ONDANSETRON HCL Inactive OMEPRAZOLE 20 MG CPDR 1 tablet by mouth daily for GERD OMEPRAZOLE 20 MG CPDR 797975 OMEPRAZOLE Inactive CYCLOBENZAPRINE HCL 10 MG TABS 1 tablet by mouth three times daily as needed for headaches CYCLOBENZAPRINE HCL 10 MG TABS 508198 CYCLOBENZAPRINE HCL Inactive FLAGYL 500 MG TABS 1 pill by mouth three times daily, for diarrh ea FLAGYL 500 MG TABS 941657 METRONIDAZOLE Inactive Advance Directives Directive Description Start [...] - Chem istry sodium, serum 137 mmol/L 265-090 7475/11/01 potassium, serum 3.7 mmol/L 3.5-5.2 chloride, serum 100 mmol/L 98-107 carbon dioxide, venous blood 31.8 mmol/L 21.0-32 .0 blood glucose 98 mg/dL 65-110 calcium, serum 8.6 mg/dL 8.5-10.1 urea nitrogen, blood 23 mg/dL 7-18 creatinine, serum 1.50 mg/dL 0.60-1.30 sodium, serum 136 mmol/L 761-936 4176/05/02 potassium, serum 4.1 mmol/L 3.5-5.2 chloride, serum [...] mg/dL Lab Report: CBC W/ DIFF, BMP, KANOT, AN AEROBIC CX - Chemistry sodium, serum [...] 11 .6-14.8 platelet count 133 10^3/MM^3 10*3/mm3 254-923 1146/01/17 leukocyte count, blood 3.1 10^3/MM^3 10*3/mm3 4.6-10.2 [...] 11 .6-14.8 platelet count 22 10^3/MM^3 10*3/mm3 934-633 9066/11/19 leukocyte count, blood 10.4 10^3/MM^3 10*3/mm3 4.6-10.2 [...] Verified By Repeat Analysis 10^3/mm ^3 10*3/mm3 528-833 2888/12/10 leukocyte count, blood 7.8 10^3/MM^3 10*3/mm3 4.6-10.2 [...] Panel - Chemistry sodium, serum 139 mmol/L 093-579 2309/12/03 potassium, serum 3.7 mmol/L 3.5-5.2 chloride, serum [...] 0.40 mg/dL 0.00-1.00 sodium, serum 142 mmol/L 212-794 9167/01/03 potassium, serum 3.4 mmol/L 3.5-5.2 chloride, serum [...] 0.50 mg/dL 0.00-1.00 sodium, serum 137 mmol/L 692-980 8501/10/01 potassium, serum 3.5 mmol/L 3.5-5.2 chloride, serum [...] 0.60 mg/dL 0.00-1.00 sodium, serum 136 mmol/L 758-368 6219/10/08 potassium, serum 3.1 mmol/L 3.5-5.2 chloride, serum [...] 0.60 mg/dL 0.00-1.00 sodium, serum 139 mmol/L 426-529 0894/10/17 potassium, serum 3.1 mmol/L 3.5-5.2 chloride, serum 98 mmol/L 98-107 carbon dioxide, venous blood 29.8 mmol/L 21.0-32 .0 blood glucose 97 mg/dL 65-110 urea nitrogen, blood 8 mg/dL 7-18 creatinine, serum 1.30 mg/dL 0.60-1.30 alanine aminotransferase (SGPT), serum 36 U/L aspartate aminotransferase (SGOT), serum 46 U/L 15-37 alkaline phosphatase, serum 127 U/L 50-136 calcium, serum 7.7 mg/dL 8.5-10.1 bilirubin, serum, total 0.30 mg/dL 0.00-1.00 sodium, serum 140 mmol/L 117-480 7103/01/06 potassium, serum 3.4 mmol/L 3.5-5.2 chloride, serum [...] 0.40 mg/dL 0.00-1.00 sodium, serum 139 mmol/L 570-084 2235/01/21 potassium, serum 3.4 mmol/L 3.5-5.2 chloride, serum [...] 0.40 mg/dL 0.00-1.00 sodium, serum 138 mmol/L 742-943 8034/01/28 potassium, serum 3.2 mmol/L 3.5-5.2 chloride, serum [...] 0.40 mg/dL 0.00-1.00 sodium, serum 140 mmol/L 569-492 3634/02/04 potassium, serum 3.6 mmol/L 3.5-5.2 chloride, serum [...] 0.70 mg/dL 0.00-1.00 sodium, serum 136 mmol/L 256-559 8608/02/11 potassium, serum 3.1 mmol/L 3.5-5.2 chloride, serum [...] 0.50 mg/dL 0.00-1.00 sodium, serum 138 mmol/L 482-709 6458/08/14 potassium, serum 4.0 mmol/L 3.5-5.2 chloride, serum 100 mmol/L 98-107 carbon dioxide, venous blood 28.7 mmol/L 21.0-32 .0 blood glucose 87 mg/dL 65-110 urea nitrogen, blood 25 mg/dL 7-18 creatinine, serum 1.20 mg/dL 0.60-1.30 alanine aminotransferase (SGPT), serum 38 U/L - aspartate aminotransferase (SGOT), serum 32 U/L 15-37 alkaline phosphatase, serum 198 U/L 50-136 calcium, serum 9.8 mg/dL 8.5-10.1 bilirubin, serum, total 0.40 mg/dL 0.00-1.00 sodium, serum 136 mmol/L 964-992 5452/04/03 potassium, serum 3.7 mmol/L 3.5-5.2 chloride, serum [...] 0.40 mg/dL 0.00-1.00 sodium, serum 139 mmol/L 606-353 2130/02/18 potassium, serum 3.6 mmol/L 3.5-5.2 chloride, serum [...] 11 .6-14.8 platelet count 246 10^3/MM^3 10*3/mm3 347-075 3361/08/14 leukocyte count, blood 5.8 10^3/MM^3 10*3/mm3 4.6-10.2 [...] 11 .6-14.8 platelet count 193 10^3/MM^3 10*3/mm3 775-767 2011/02/18 leukocyte count, blood 4.0 10^3/MM^3 10*3/mm3 4.6-10.2 [...] 11 .6-14.8 platelet count 134 10^3/MM^3 10*3/mm3 686-407 2490/02/11 leukocyte count, blood 4.8 10^3/MM^3 10*3/mm3 4.6-10.2 [...] 11 .6-14.8 platelet count 102 10^3/MM^3 10*3/mm3 177-758 5736/02/04 leukocyte count, blood 3.6 10^3/MM^3 10*3/mm3 4.6-10.2 [...] 11 .6-14.8 platelet count 70 10^3/MM^3 10*3/mm3 226-503 8585/01/28 leukocyte count, blood 4.2 10^3/MM^3 10*3/mm3 4.6-10.2 [...] 11 .6-14.8 platelet count 73 10^3/MM^3 10*3/mm3 461-051 2737/01/03 leukocyte count, blood 8.1 10^3/MM^3 10*3/mm3 4.6-10.2 [...] 11 .6-14.8 platelet count 96 10^3/MM^3 10*3/mm3 233-078 5202/01/21 leukocyte count, blood 4.9 10^3/MM^3 10*3/mm3 4.6-10.2 [...] .6-14.8 platelet count 38 recounted 10^3/mm^3 10*3/mm3 680-257 6709/10/08 leukocyte count, blood 2.9 10^3/MM^3 10*3/mm3 4.6-10.2 [...] 11 .6-14.8 platelet count 229 10^3/MM^3 10*3/mm3 039-233 2650/10/17 leukocyte count, blood 12.0 10^3/MM^3 10*3/mm3 4.6-10.2 [...] 11 .6-14.8 platelet count 232 10^3/MM^3 10*3/mm3 941-509 5457/10/01 leukocyte count, blood 8.3 10^3/MM^3 10*3/mm3 4.6-10.2 [...] 11 .6-14.8 platelet count 378 10^3/MM^3 10*3/mm3 861-111 4241/01/06 leukocyte count, blood 7.6 10^3/MM^3 10*3/mm3 4.6-10.2 [...] 11 .6-14.8 platelet count 132 10^3/MM^3 10*3/mm3 410-912 1802/12/03 leukocyte count, blood 8.2 10^3/MM^3 10*3/mm3 4.6-10.2 [...] Diff/Morphology - Chemistry sodium, serum 141 mmol/L 176-127 9965/11/25 potassium, serum 3.9 mmol/L 3.5-5.2 chloride, serum [...] 0.50 mg/dL 0.00-1.00 sodium, serum 137 mmol/L 422-417 3462/11/12 potassium, serum 3.2 mmol/L 3.5-5.2 chloride, serum [...] 0.40 mg/dL 0.00-1.00 sodium, serum 140 mmol/L 524-524 7873/12/17 potassium, serum 3.3 mmol/L 3.5-5.2 chloride, serum [...] 0.40 mg/dL 0.00-1.00 sodium, serum 138 mmol/L 768-631 5099/12/24 potassium, serum 3.7 mmol/L 3.5-5.2 chloride, serum [...] 0.50 mg/dL 0.00-1.00 sodium, serum 135 mmol/L 548-535 0095/10/22 potassium, serum 3.0 mmol/L 3.5-5.2 chloride, serum [...] 0.50 mg/dL 0.00-1.00 sodium, serum 138 mmol/L 780-286 6756/11/05 potassium, serum 3.9 mmol/L 3.5-5.2 chloride, serum [...] 0.40 mg/dL 0.00-1.00 sodium, serum 128 mmol/L 929-094 7803/10/29 potassium, serum 2.6 mmol/L 3.5-5.2 chloride, serum 95 mmol/L 98-107 carbon dioxide, venous blood 35.6 mmol/L 21.0-32 .0 blood glucose 86 mg/dL 65-110 urea nitrogen, blood 25 mg/dL 7-18 creatinine, serum 1.50 mg/dL 0.60-1.30 alanine aminotransferase (SGPT), serum 34 U/L -29 aspartate aminotransferase (SGOT), serum 38 U/L 15-37 alkaline phosphatase, serum 242 U/L 50-136 calcium, serum 9.4 mg/dL 8.5-10.1 bilirubin, serum, total 0.50 mg/dL 0.00-1.00 sodium, serum 141 mmol/L 938-544 1322/01/14 potassium, serum 3.9 mmol/L 3.5-5.2 chloride, serum [...] 11 .6-14.8 platelet count 22 10^3/MM^3 10*3/mm3 540-261 2666/10/22 leukocyte count, blood 14.7 10^3/MM^3 10*3/mm3 4.6-10.2 [...] 11 .6-14.8 platelet count 428 10^3/MM^3 10*3/mm3 986-863 2526/11/05 leukocyte count, blood 16.4 10^3/MM^3 10*3/mm3 4.6-10.2 [...] 11 .6-14.8 platelet count 215 10^3/MM^3 10*3/mm3 051-762 6948/11/12 leukocyte count, blood 12.1 10^3/MM^3 10*3/mm3 4.6-10.2 [...] 11 .6-14.8 platelet count 157 10^3/MM^3 10*3/mm3 089-536 9562/10/29 leukocyte count, blood 26.3 10^3/MM^3 10*3/mm3 4.6-10.2 [...] 11 .6-14.8 platelet count 268 10^3/MM^3 10*3/mm3 459-707 5161/12/24 leukocyte count, blood 14.0 10^3/MM^3 10*3/mm3 4.6-10.2 [...] 11 .6-14.8 platelet count 66 10^3/MM^3 10*3/mm3 221-343 4938/11/25 leukocyte count, blood 21.1 10^3/MM^3 10*3/mm3 4.6-10.2 [...] 11 .6-14.8 platelet count 46 10^3/MM^3 10*3/mm3 479-085 5654/12/17 leukocyte count, blood 18.6 10^3/MM^3 10*3/mm3 4.6-10.2 [...] - Chem istry sodium, serum 141 mmol/L 871-606 4640/11/19 potassium, serum 3.9 mmol/L 3.5-5.2 chloride, serum 101 mmol/L 98-107 carbon dioxide, venous blood 32.0 mmol/L 21.0-32 .0 blood glucose 109 mg/dL 65-110 urea nitrogen, blood 22 mg/dL 7-18 creatinine, serum 1.50 mg/dL 0.60-1.30 alanine aminotransferase (SGPT), serum 38 U/L aspartate aminotransferase (SGOT), serum 25 U/L 15-37 alkaline phosphatase, serum 184 U/L 50-136 calcium, serum 9.0 mg/dL 8.5-10.1 bilirubin, serum, total 0.50 mg/dL 0.00-1.00 sodium, serum 142 mmol/L 552-512 4519/12/10 potassium, serum 3.9 mmol/L 3.5-5.2 chloride, serum [...] Diff/Morphology - Chemistry sodium, serum 142 mmol/L 937-543 6700/12/31 potassium, serum 3.6 mmol/L 3.5-5.2 chloride, serum [...] Panel - Chemistry cholesterol, serum 209 mg/dL 712-724 3860/09/11 triglyceride, serum, fasting 113 mg/dL 30-200 HDL cholesterol, serum 50 mg/dL 32-96 LDL cholesterol, serum 136 mg/dL 0-130 Encounters Code Encounter Date Provider Facility CPT-69101 Level 3 New Patient 01:46:11 [facility] Hope landers MD PhD [facility] Procedures Code Procedure Name Date Entry Date Standard Desc ription CPT-OV Office Visit 15:37:02 CDT CPT-43179 Postop F/U Visit 15:47:49 CDT CPT-41174 Postop F/U Visit 15:21:02 CDT CPT-[facility] Transitional Care Mgmt-High 07:52:27 CDT 20 20/06/01 CPT-78069 Venipuncture Draw Fee 13:51:18 CDT CPT-71814 Venipuncture Draw Fee 10:14:55 [facility] CPT-84434 Venipuncture Draw Fee 13:39:45 [facility] CPT-OV Office Visit 15:11:22 [facility] CPT-93469 Venipuncture Draw Fee 09:20:49 [facility] CPT-60716 Venipuncture Draw Fee 16:52:15 [facility] CPT-96305 Venipuncture Draw Fee 10:37:24 [facility] CPT-04726 Venipuncture Draw Fee 08:21:21 [facility] CPT-27261 Venipuncture Draw Fee 08:30:20 [facility] CPT-51618 Venipuncture Draw Fee 14:53:21 [facility] CPT-75053 Venipuncture Draw Fee 09:40:56 [facility] CPT-69715 Venipuncture Draw Fee 10:30:47 [facility] CPT-54742 Venipuncture Draw Fee 10:46:17 [facility] CPT-06616 Venipuncture Draw Fee 11:12:45 [facility] CPT-91701 Venipuncture Draw Fee 09:53:33 [facility] CPT-52131 Venipuncture Draw Fee 11:53:51 [facility] CPT-21486 Venipuncture Draw Fee 10:33:50 [facility] CPT-40573 Venipuncture Draw Fee 10:05:01 [facility] CPT-02977 Venipuncture Draw Fee 14:32:52 [facility] CPT-53925 Venipuncture Draw Fee 09:46:13 [facility] CPT-16337 Venipuncture Draw Fee 11:34:27 [facility] CPT-27581 Venipuncture Draw Fee 13:17:16 [facility] CPT-05262 Venipuncture Draw Fee 12:05:39 CDT CPT-53634 Venipuncture Draw Fee 12:49:12 CDT CPT-48427 Venipuncture Draw Fee 12:37:18 CDT CPT-80380 Venipuncture Draw Fee 10:57:11 CDT CPT-32404 Venipuncture Draw Fee 13:47:40 CDT CPT-26200 Venipuncture Draw Fee 10:02:17 CDT CPT-99576 TB Tubersol 17:32:32 CDT CPT-OV Office Visit 16:21:53 CDT CPT-OV Office Visit 15:49:22 CDT CPT-OV Office Visit 17:16:31 CDT CPT-OV Office Visit 10:43:31 CDT
--- OUTSIDE RECORDS SUMMARY | 2019-02-09 13:07 | XMS REPORT | Clinical Summary ---
Author Author Renaldo, Florecita Munoz Organization [facility] Address Unknown Phone Unavailable Allergies, Adverse [...] (age-related) (natural) V49.8 1 Active Citlaly Roland [facility] Asymptomatic postmenopausal status (age- related) (natural) Diarrhea 787.91 Active Hope Benavidez MD PhD Diarrhea Osteoporosis 733.00 Active Hope Benavidez MD PhD Osteoporosis, unspecified ABDOMINAL PAIN, RIGHT LOWER QUADRANT ICD-789.03 Inactive Kina Joshua APRN ADENOCARCINOMA, COLON, CECUM ICD-153.4 Dick Yates MD ABDOMINAL PAIN, GENERALIZED ICD-789.07 Inactive Hope Benavidez MD PhD FEVER UNSPECIFIED ICD-780.60 Inactive Hope cohn MD PhD UNSPECIFIED VENOUS INSUFFICIENCY ICD-459.81 [place] [facility] Adam Yates MD ADENOCARCINOMA, ASCENDING COLON [...] shot every 6 months for osteoprosis DENOSUMAB 92872163676 Active Hope Benavidez MD PhD Active CALCIUM + D + K 750-500-40 MG-UNT-MCG TABS 1 tab by mouth tw ice daily CALCIUM-VITAMIN D-VITAMIN K 85181202745 Active Hope landers MD PhD Active DAILY VALUE MULTIVITAMIN TABS 1 tab by mouth twice daily MULTIPLE VITAMIN 39618350970 Active Hope Benavidez MD PhD Active FISH OIL 306 MG CAPS 1 tab by mouth three times daily OMEGA-3 FATTY ACIDS 44991146751 Active Hope Benavidez MD PhD Active LUTEIN 10 MG TABS 1 tab daily LUTEIN 18646358093 Act cash Hope Benavidez MD PhD Active FLORANEX PACK 1 pack three times daily, for bowel health LACTOBACILLUS 76961139560 Active Hope Benavidez MD PhD Active LOMOTIL 2.5-0.025 MG TABS 1 tab by mouth prn DIPHENOXYLATE-ATROPINE 12072917904 Active Hope Benavidez MD PhD Active TRIAMTERENE-HCTZ 37.5-25 MG TABS 1 tab by mouth daily TRIAMTERENE-HCTZ 79170636251 Active Hope Benavidez MD PhD Acti ve IRON 325 (65 FE) MG TABS 1 tab daily FERROUS SULF ATE 53413185952 Active Hope Benavidez MD PhD Active MAGNESIUM GLUCONATE 250 MG TABS 1 tab tid MAGN ESIUM GLUCONATE 40587454156 Active Adam Yates MD Active ATENOLOL 50 MG TABS 1/2 tab q other day m-w-f ATE NOLOL 29272937324 Active Adam Yates MD Active PROPRANOLOL HCL 80 MG TABS 1 tab tue. and thur. PROPRANOLOL HCL 28273701536 Active Adam Yates MD Active CYCLOBENZAPRINE HCL 10 MG TABS 1 tablet by mouth three times daily as needed for headaches CYCLOBENZAPRINE HCL 77856461999 No Longe r Active Adam Yates MD Active OMEPRAZOLE 20 MG CPDR 1 tablet by mouth daily for GERD OMEPRAZOLE 14758036581 No Longer Active Adam Yates MD A ctive ZOFRAN 8 MG TABS 1 tab by mouth every 12 hours prn 201 05/16/09 ONDANSETRON HCL 17842334961 No Longer Active Adam Yates MD Active PHENADOZ 25 MG SUPP 1 every 4 hrs. PRN PROMETHA ZINE HCL 25988255005 No Longer Active Adam Yates MD Active POTASSIUM CHLORIDE 20 MEQ PACK by mouth twice a day prn POTASSIUM CHLORIDE 08615853800 No Longer Active Adam Yates MD Active PROMETHAZINE HCL 25 MG TABS 1 Q. 4 hr. PRN PROM ETHAZINE HCL 22308349863 No Longer Active Adam Yates MD Active INNOPRAN XL 120 MG [id number] Take one by mouth daily 2 PROPRANOLOL HCL SR BEADS 81299289502 No Longer Active Adam Yates MD A ctive FLAGYL 500 MG TABS 1 pill by mouth three times daily, for diarrh ea METRONIDAZOLE 69290000600 No Longer Active Hope Benavidez MD PhD Active DYAZIDE 37.5-25 MG CAPS 1 qd TRIAMTERENE-HC TZ 09249016128 No Longer Active Hope Benavidez MD PhD Active PROZAC 20 MG CAPS 1 q d FLUOXETINE HCL 72951 892777 No Longer Active Hope Benavidez MD PhD Active SIMVASTATIN 40 MG TABS 1 qd SIMVASTATIN 004 76281730 No Longer Active Adam Yates MD Active MELOXICAM 15 MG TABS 1 qd MELOXICAM 3403179 3048 No Longer Active Adam Yates MD Active IMODIUM A-D 2 MG TABS 2 onset at diarrhea and prn. LOPERAMIDE HCL 32329554515 Active Hope Benavidez MD PhD Active EXCEDRIN EXTRA STRENGTH 250-250-65 MG TABS 1-2 q6h PRN headache 201 04/16/21 [id number] 89900861192 Active Hope Benavidez MD PhD Active FLAGYL 500 MG TABS 1 qid METRONIDAZOLE 91834 252057 No Longer Active Adam Yates MD Active LEVAQUIN 750 MG TABS 1 qd LEVOFLOXACIN 5486 5683418 No Longer Active Adam Yates MD Active ADULT ASPIRIN LOW STRENGTH 81 MG TBDP 1 qd A SPIRIN 19561684830 Active Hope Benavidez MD PhD Active LEVAQUIN 750 MG TABS 1 qd LEVAQUIN 750 MG T ABS 295583 LEVOFLOXACIN Inactive FLAGYL 500 MG TABS 1 qid FLAGYL 500 MG TABS 390710 METRONIDAZOLE Inactive MELOXICAM 15 MG TABS 1 qd MELOXICAM 15 MG T ABS 967107 MELOXICAM Inactive SIMVASTATIN 40 MG TABS 1 qd SIMVASTATIN 40 MG TABS 403061 SIMVASTATIN Inactive PROZAC 20 MG CAPS 1 q d PROZAC 20 MG CAPS 31 0385 FLUOXETINE HCL Inactive DYAZIDE 37.5-25 MG CAPS 1 qd DYAZIDE 37.5 -25 MG CAPS 167213 TRIAMTERENE-HCTZ Inactive INNOPRAN XL 120 MG [id number] Take one by mouth daily 2 INNOPRAN XL 120 MG [id number] PROPRANOLOL HCL SR BEADS Inactive PROMETHAZINE HCL 25 MG TABS 1 Q. 4 hr. PRN PROMETHAZINE HCL 25 MG TABS 593467 PROMETHAZINE HCL Inactive POTASSIUM CHLORIDE 20 MEQ PACK by mouth twice a day prn POTASSIUM CHLORIDE 20 MEQ PACK 896179 POTASSIUM CHLORIDE Inactive PHENADOZ 25 MG SUPP 1 every 4 hrs. PRN PHENADOZ 2 5 MG SUPP 847744 PROMETHAZINE HCL Inactive ZOFRAN 8 MG TABS 1 tab by mouth every 12 hours prn 201 05/16/09 ZOFRAN 8 MG TABS 872538 ONDANSETRON HCL Inactive OMEPRAZOLE 20 MG CPDR 1 tablet by mouth daily for GERD OMEPRAZOLE 20 MG CPDR 500070 OMEPRAZOLE Inactive CYCLOBENZAPRINE HCL 10 MG TABS 1 tablet by mouth three times daily as needed for headaches CYCLOBENZAPRINE HCL 10 MG TABS 340755 CYCLOBENZAPRINE HCL Inactive FLAGYL 500 MG TABS 1 pill by mouth three times daily, for diarrh ea FLAGYL 500 MG TABS 673822 METRONIDAZOLE Inactive Advance Directives Directive Description Start [...] weight E&M 109 [lb_av] Weight Measure d Diagnostic Results Date Name Value Unit Range Description Chart Maintenance: Outside labs entered on flowsheet - Chemistry sodium, serum 139 mmol/L potassium, serum 3.9 mmol/L blood glucose 85 mg/dL creatinine, serum 1.26 mg/dL aspartate aminotransferase (SGOT), serum 33 U/L alanine aminotransferase (SGPT), serum 44 U/L alkaline phosphatase, serum 127 U/L Chart Maintenance: Outside labs entered on flowsheet - Hematology leukocyte count, blood 4.6 10*3/mm3 hemoglobin, blood 13.6 g/dL platelet count 162 10*3/mm3 Lab Report: Basic Metabolic Panel - Chem istry sodium, serum 136 mmol/L 988-305 2338/05/02 potassium, serum 4.1 mmol/L 3.5-5.2 chloride, serum [...] Verified By Repeat Analysis 10^3/mm ^3 10*3/mm3 872-427 6161/12/10 leukocyte count, blood 7.8 10^3/MM^3 10*3/mm3 4.6-10.2 [...] 11 .6-14.8 platelet count 102 10^3/MM^3 10*3/mm3 279-531 2711/01/08 leukocyte count, blood 9.0 10^3/MM^3 10*3/mm3 4.6-10.2 [...] 11 .6-14.8 platelet count 133 10^3/MM^3 10*3/mm3 562-807 9780/01/17 leukocyte count, blood 3.1 10^3/MM^3 10*3/mm3 4.6-10.2 [...] Panel - Chemistry sodium, serum 139 mmol/L 676-944 1558/01/21 potassium, serum 3.4 mmol/L 3.5-5.2 chloride, serum [...] 0.40 mg/dL 0.00-1.00 sodium, serum 138 mmol/L 124-174 4972/01/28 potassium, serum 3.2 mmol/L 3.5-5.2 chloride, serum [...] 0.40 mg/dL 0.00-1.00 sodium, serum 140 mmol/L 171-308 7890/02/04 potassium, serum 3.6 mmol/L 3.5-5.2 chloride, serum [...] 0.70 mg/dL 0.00-1.00 sodium, serum 142 mmol/L 805-902 8651/01/03 potassium, serum 3.4 mmol/L 3.5-5.2 chloride, serum [...] 0.50 mg/dL 0.00-1.00 sodium, serum 139 mmol/L 707-332 0329/12/03 potassium, serum 3.7 mmol/L 3.5-5.2 chloride, serum [...] 0.40 mg/dL 0.00-1.00 sodium, serum 138 mmol/L 442-439 0110/08/14 potassium, serum 4.0 mmol/L 3.5-5.2 chloride, serum [...] 0.40 mg/dL 0.00-1.00 sodium, serum 140 mmol/L 121-342 5011/01/06 potassium, serum 3.4 mmol/L 3.5-5.2 chloride, serum [...] 0.40 mg/dL 0.00-1.00 sodium, serum 136 mmol/L 412-995 0665/04/03 potassium, serum 3.7 mmol/L 3.5-5.2 chloride, serum [...] 0.40 mg/dL 0.00-1.00 sodium, serum 136 mmol/L 129-958 9867/02/11 potassium, serum 3.1 mmol/L 3.5-5.2 chloride, serum [...] 0.50 mg/dL 0.00-1.00 sodium, serum 139 mmol/L 165-467 5972/02/18 potassium, serum 3.6 mmol/L 3.5-5.2 chloride, serum [...] 11 .6-14.8 platelet count 246 10^3/MM^3 10*3/mm3 414-839 0637/02/18 leukocyte count, blood 4.0 10^3/MM^3 10*3/mm3 4.6-10.2 [...] 11 .6-14.8 platelet count 134 10^3/MM^3 10*3/mm3 507-534 6853/08/14 leukocyte count, blood 5.8 10^3/MM^3 10*3/mm3 4.6-10.2 [...] 11 .6-14.8 platelet count 193 10^3/MM^3 10*3/mm3 499-126 9577/12/03 leukocyte count, blood 8.2 10^3/MM^3 10*3/mm3 4.6-10.2 [...] 11 .6-14.8 platelet count 98 10^3/MM^3 10*3/mm3 007-364 1720/01/06 leukocyte count, blood 7.6 10^3/MM^3 10*3/mm3 4.6-10.2 [...] 11 .6-14.8 platelet count 132 10^3/MM^3 10*3/mm3 511-170 4067/01/03 leukocyte count, blood 8.1 10^3/MM^3 10*3/mm3 4.6-10.2 [...] 11 .6-14.8 platelet count 96 10^3/MM^3 10*3/mm3 815-096 4778/02/11 leukocyte count, blood 4.8 10^3/MM^3 10*3/mm3 4.6-10.2 [...] 11 .6-14.8 platelet count 102 10^3/MM^3 10*3/mm3 841-608 4376/02/04 leukocyte count, blood 3.6 10^3/MM^3 10*3/mm3 4.6-10.2 [...] 11 .6-14.8 platelet count 70 10^3/MM^3 10*3/mm3 245-891 8395/01/28 leukocyte count, blood 4.2 10^3/MM^3 10*3/mm3 4.6-10.2 [...] 11 .6-14.8 platelet count 73 10^3/MM^3 10*3/mm3 542-912 3511/01/21 leukocyte count, blood 4.9 10^3/MM^3 10*3/mm3 4.6-10.2 [...] Diff/Morphology - Chemistry sodium, serum 141 mmol/L 983-014 8798/01/14 potassium, serum 3.9 mmol/L 3.5-5.2 chloride, serum [...] 0.50 mg/dL 0.00-1.00 sodium, serum 141 mmol/L 467-666 0522/11/25 potassium, serum 3.9 mmol/L 3.5-5.2 chloride, serum 100 mmol/L 98-107 carbon dioxide, venous blood 33.0 mmol/L 21.0-32 .0 blood glucose 101 mg/dL 65-110 urea nitrogen, blood 28 mg/dL 7-18 creatinine, serum 1.40 mg/dL 0.60-1.30 alanine aminotransferase (SGPT), serum 26 U/L aspartate aminotransferase (SGOT), serum 27 U/L 15-37 alkaline phosphatase, serum 225 U/L 50-136 calcium, serum 8.6 mg/dL 8.5-10.1 bilirubin, serum, total 0.50 mg/dL 0.00-1.00 sodium, serum 137 mmol/L 962-972 8645/11/12 potassium, serum 3.2 mmol/L 3.5-5.2 chloride, serum [...] 0.40 mg/dL 0.00-1.00 sodium, serum 140 mmol/L 039-560 3569/12/17 potassium, serum 3.3 mmol/L 3.5-5.2 chloride, serum [...] 0.40 mg/dL 0.00-1.00 sodium, serum 138 mmol/L 188-522 3936/12/24 potassium, serum 3.7 mmol/L 3.5-5.2 chloride, serum [...] Manual Diff/Morphology - Hematology leukocyte count, blood 14.0 10^3/MM^3 10*3/mm3 4.6-10.2 [...] 11 .6-14.8 platelet count 66 10^3/MM^3 10*3/mm3 633-545 6578/11/12 leukocyte count, blood 12.1 10^3/MM^3 10*3/mm3 4.6-10.2 [...] 11 .6-14.8 platelet count 157 10^3/MM^3 10*3/mm3 927-589 4380/11/25 leukocyte count, blood 21.1 10^3/MM^3 10*3/mm3 4.6-10.2 [...] 11 .6-14.8 platelet count 46 10^3/MM^3 10*3/mm3 747-680 4878/01/14 leukocyte count, blood 6.2 10^3/MM^3 10*3/mm3 4.6-10.2 [...] 11 .6-14.8 platelet count 22 10^3/MM^3 10*3/mm3 029-701 5136/12/17 leukocyte count, blood 18.6 10^3/MM^3 10*3/mm3 4.6-10.2 [...] - Chem istry sodium, serum 141 mmol/L 001-860 9201/11/19 potassium, serum 3.9 mmol/L 3.5-5.2 chloride, serum [...] 0.50 mg/dL 0.00-1.00 sodium, serum 142 mmol/L 823-166 5634/12/10 potassium, serum 3.9 mmol/L 3.5-5.2 chloride, serum [...] Diff/Morphology - Chemistry sodium, serum 142 mmol/L 634-676 3788/12/31 potassium, serum 3.6 mmol/L 3.5-5.2 chloride, serum 101 mmol/L 98-107 carbon dioxide, venous blood 30.0 mmol/L 21.0-32 .0 blood glucose 101 mg/dL 65-110 urea nitrogen, blood 36 mg/dL 7-18 creatinine, serum 2.20 mg/dL 0.60-1.30 alanine aminotransferase (SGPT), serum 19 U/L -78 aspartate aminotransferase (SGOT), serum 24 [...] Panel - Chemistry cholesterol, serum 209 mg/dL 042-926 1913/09/11 triglyceride, serum, fasting 113 mg/dL 30-200 HDL cholesterol, serum 50 mg/dL 32-96 LDL cholesterol, serum 136 mg/dL 0-130 Encounters Code Encounter Date Provider Facility [id number] Level 4 Est. Patient 20:04:51 CDT Hope cohn MD PhD [facility] CPT-88867 Level 3 New Patient 01:46:11 [employer] Hope landers MD PhD [facility] Procedures Code Procedure Name Date Entry Date Standard Desc ription CPT-G0008 Administration of Influenza Virus Vaccine 13:36:47 CDT CPT-19007 Fluzone High-Dose Intramuscular Suspension 11/15 13:36:47 CDT CPT-J0897 Prolia 60 mg 08:50:41 CDT CPT-52072 Abx/Therapy Injection 08:50:41 CDT CPT-18193 Bone Density 12:06:12 CDT CPT-94827 Bone Density 08:54:40 CDT CPT-OV Office Visit 15:37:02 CDT CPT-54714 Postop F/U Visit 15:47:49 CDT CPT-82338 Postop F/U Visit 15:21:02 CDT CPT-TCMH Transitional Care Mgmt-High 07:52:27 CDT 20 20/06/01 CPT-49724 Venipuncture Draw Fee 13:51:18 CDT CPT-72492 Venipuncture Draw Fee 10:14:55 [employer] CPT-37718 Venipuncture Draw Fee 13:39:45 [employer] CPT-OV Office Visit 15:11:22 [employer] CPT-95193 Venipuncture Draw Fee 09:20:49 [employer] CPT-11560 Venipuncture Draw Fee 16:52:15 [employer] CPT-68010 Venipuncture Draw Fee 10:37:24 [employer] CPT-18113 Venipuncture Draw Fee 08:21:21 [employer] CPT-88354 Venipuncture Draw Fee 08:30:20 [employer] CPT-04438 Venipuncture Draw Fee 14:53:21 [employer] CPT-21812 Venipuncture Draw Fee 09:40:56 [employer] CPT-23992 Venipuncture Draw Fee 10:30:47 [employer] CPT-94506 Venipuncture Draw Fee 10:46:17 [employer] CPT-93299 Venipuncture Draw Fee 11:12:45 [employer] CPT-49989 Venipuncture Draw Fee 09:53:33 [employer] CPT-35199 Venipuncture Draw Fee 11:53:51 [employer] CPT-60705 Venipuncture Draw Fee 10:33:50 [employer] CPT-66232 Venipuncture Draw Fee 10:05:01 [employer] CPT-58802 Venipuncture Draw Fee 14:32:52 [employer] CPT-25733 Venipuncture Draw Fee 09:46:13 [employer] CPT-17216 Venipuncture Draw Fee 11:34:27 [employer] CPT-60511 Venipuncture Draw Fee 13:17:16 [employer] CPT-64685 Venipuncture Draw Fee 12:05:39 CDT CPT-37342 Venipuncture Draw Fee 12:49:12 CDT CPT-12016 Venipuncture Draw Fee 12:37:18 CDT CPT-47788 Venipuncture Draw Fee 10:57:11 CDT CPT-07493 Venipuncture Draw Fee 13:47:40 CDT CPT-67734 Venipuncture Draw Fee 10:02:17 CDT CPT-80527 TB Tubersol 17:32:32 CDT CPT-OV Office Visit 16:21:53 CDT CPT-OV Office Visit 15:49:22 CDT CPT-OV Office Visit 17:16:31 CDT CPT-OV Office Visit 10:43:31 CDT
--- OUTSIDE RECORDS SUMMARY | 2019-02-09 13:08 | XMS REPORT | Clinical Summary ---
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 Dick Yates MD [...] 1 injection every 2 weeks 01/09 CYANOCOBALAMIN 73814750065 Active Laura Elder Active VITAMIN D3 4000 IU 1 tab 3 times daily VITAMIN D3 400 0 IU Active Hope Benavidez MD PhD Active BACTRIM DS 800-160 MG TABS 1 pill by mouth twice daily, for UTI SULFAMETHOXAZOLE-TRIMETHOPRIM 17096378421 No Longer Active A attila Benavidez MD PhD Active PROLIA 60 MG/ML SOLN 1 shot every 6 months for osteoprosis DENOSUMAB 89616790567 Active Hope Benavidez MD PhD Active CALCIUM + D + K 750-500-40 MG-UNT-MCG TABS 1 tab by mouth tw ice daily CALCIUM-VITAMIN D-VITAMIN K 80183929016 Active Hope landers MD PhD Active DAILY VALUE MULTIVITAMIN TABS 1 tab by mouth twice daily MULTIPLE VITAMIN 19665481073 Active Hope Benavidez MD PhD Active FISH OIL 306 MG CAPS 1 tab by mouth three times daily OMEGA-3 FATTY ACIDS 88817368349 Active Hope Benavidez MD PhD Active LUTEIN 10 MG TABS 1 tab daily LUTEIN 36215085737 Act cash Hope Benavidez MD PhD Active FLORANEX PACK 1 pack three times daily, for bowel health LACTOBACILLUS 60493552383 Active Hope Benavidez MD PhD Active LOMOTIL 2.5-0.025 MG TABS 1 tab by mouth prn DIPHENOXYLATE-ATROPINE 03114688258 Active Hope Benavidez MD PhD Active TRIAMTERENE-HCTZ 37.5-25 MG TABS 1 tab by mouth daily TRIAMTERENE-HCTZ 91688030308 Active Hope Benavidez MD PhD Acti ve IRON 325 (65 FE) MG TABS 1 tab daily FERROUS SULF ATE 90602885885 Active Hope Benavidez MD PhD Active MAGNESIUM GLUCONATE 250 MG TABS 1 tab tid MAGN ESIUM GLUCONATE 93302445251 Active Adam Yates MD Active ATENOLOL 50 MG TABS 1/2 tab q other day m-w-f ATE NOLOL 89227532014 Active Hope Benavidez MD PhD Active PROPRANOLOL HCL 80 MG TABS 1 tab tue. and thur. PROPRANOLOL HCL 31034379671 Active Adam Yates MD Active CYCLOBENZAPRINE HCL 10 MG TABS 1 tablet by mouth three times daily as needed for headaches CYCLOBENZAPRINE HCL 10661739890 No Longe r Active Adam Yates MD Active OMEPRAZOLE 20 MG CPDR 1 tablet by mouth daily for GERD OMEPRAZOLE 68854860866 No Longer Active Adam Yates MD A ctive ZOFRAN 8 MG TABS 1 tab by mouth every 12 hours prn 201 05/16/09 ONDANSETRON HCL 92087147598 No Longer Active Adam Yates MD Active PHENADOZ 25 MG SUPP 1 every 4 hrs. PRN PROMETHA ZINE HCL 03681186128 No Longer Active Adam Yates MD Active POTASSIUM CHLORIDE 20 MEQ PACK by mouth twice a day prn POTASSIUM CHLORIDE 89277591346 No Longer Active Adam Yates MD Active PROMETHAZINE HCL 25 MG TABS 1 Q. 4 hr. PRN PROM ETHAZINE HCL 46342758097 No Longer Active Adam Yates MD Active INNOPRAN XL 120 MG [id number] Take one by mouth daily 2 PROPRANOLOL HCL SR BEADS 23246922205 No Longer Active Adam Yates MD A ctive FLAGYL 500 MG TABS 1 pill by mouth three times daily, for diarrh ea METRONIDAZOLE 92593497950 No Longer Active Hope Benavidez MD PhD Active DYAZIDE 37.5-25 MG CAPS 1 qd TRIAMTERENE-HC TZ 84586065765 No Longer Active Hope Benavidez MD PhD Active PROZAC 20 MG CAPS 1 q d FLUOXETINE HCL 49047 612027 No Longer Active Hope Benavidez MD PhD Active SIMVASTATIN 40 MG TABS 1 qd SIMVASTATIN 004 20537847 No Longer Active Adam Yates MD Active MELOXICAM 15 MG TABS 1 qd MELOXICAM 0535567 0922 No Longer Active Adam Yates MD Active IMODIUM A-D 2 MG TABS 2 onset at diarrhea and prn. LOPERAMIDE HCL 14229343793 Active Hope Benavidez MD PhD Active EXCEDRIN EXTRA STRENGTH 250-250-65 MG TABS 1-2 q6h PRN headache 201 04/16/21 [id number] 31701140460 Active Hope Benavidez MD PhD Active FLAGYL 500 MG TABS 1 qid METRONIDAZOLE 47306 729822 No Longer Active Adam Yates MD Active LEVAQUIN 750 MG TABS 1 qd LEVOFLOXACIN 5486 3912929 No Longer Active Adam Yates MD Active ADULT ASPIRIN LOW STRENGTH 81 MG TBDP 1 qd A SPIRIN 48411631315 Active Hope Benavidez MD PhD Active LEVAQUIN 750 MG TABS 1 qd LEVAQUIN 750 MG T ABS 785421 LEVOFLOXACIN Inactive FLAGYL 500 MG TABS 1 qid FLAGYL 500 MG TABS 173104 METRONIDAZOLE Inactive MELOXICAM 15 MG TABS 1 qd MELOXICAM 15 MG T ABS 434846 MELOXICAM Inactive SIMVASTATIN 40 MG TABS 1 qd SIMVASTATIN 40 MG TABS 181480 SIMVASTATIN Inactive PROZAC 20 MG CAPS 1 q d PROZAC 20 MG CAPS 31 0385 FLUOXETINE HCL Inactive DYAZIDE 37.5-25 MG CAPS 1 qd DYAZIDE 37.5 -25 MG CAPS 106207 TRIAMTERENE-HCTZ Inactive INNOPRAN XL 120 MG [id number] Take one by mouth daily 2 INNOPRAN XL 120 MG [id number] PROPRANOLOL HCL SR BEADS Inactive PROMETHAZINE HCL 25 MG TABS 1 Q. 4 hr. PRN PROMETHAZINE HCL 25 MG TABS 952371 PROMETHAZINE HCL Inactive POTASSIUM CHLORIDE 20 MEQ PACK by mouth twice a day prn POTASSIUM CHLORIDE 20 MEQ PACK 223193 POTASSIUM CHLORIDE Inactive PHENADOZ 25 MG SUPP 1 every 4 hrs. PRN PHENADOZ 2 5 MG SUPP 419967 PROMETHAZINE HCL Inactive ZOFRAN 8 MG TABS 1 tab by mouth every 12 hours prn 201 05/16/09 ZOFRAN 8 MG TABS 904396 ONDANSETRON HCL Inactive OMEPRAZOLE 20 MG CPDR 1 tablet by mouth daily for GERD OMEPRAZOLE 20 MG CPDR 235386 OMEPRAZOLE Inactive CYCLOBENZAPRINE HCL 10 MG TABS 1 tablet by mouth three times daily as needed for headaches CYCLOBENZAPRINE HCL 10 MG TABS 629753 CYCLOBENZAPRINE HCL Inactive FLAGYL 500 MG TABS 1 pill by mouth three times daily, for diarrh ea FLAGYL 500 MG TABS 280433 METRONIDAZOLE Inactive BACTRIM DS 800-160 MG TABS [...] Range Description Chart Maintenance: labs added to [employer] [facility] - Chemistry magnesium, serum 2.0 mg/dL Chart Maintenance: Outside labs entered on [employer] - Chemistry sodium, serum 139 mmol/L potassium, serum 3.9 mmol/L blood glucose 85 mg/dL creatinine, serum 1.26 mg/dL aspartate aminotransferase (SGOT), serum 33 U/L alanine aminotransferase (SGPT), serum 44 U/L alkaline phosphatase, serum 127 U/L Chart Maintenance: Outside labs entered on [employer] - Hematology leukocyte count, blood 4.6 10*3/mm3 hemoglobin, blood 13.6 g/dL platelet count 162 10*3/mm3 Lab Report: Basic Metabolic Panel - Chem istry blood glucose 79 mg/dL 65-110 calcium, serum 8.7 mg/dL 8.5-10.1 urea nitrogen, blood 11 mg/dL 7-18 creatinine, serum 1.10 mg/dL 0.60-1.30 carbon dioxide, venous blood 30.7 mmol/L 21.0-32 .0 chloride, serum 99 mmol/L 98-107 potassium, serum 4.1 mmol/L 3.5-5.2 sodium, serum 136 mmol/L 136-145 Lab Report: [facility] - Chemistry blood glucose 66 mg/dL creatinine, serum 1.16 mg/dL sodium, serum 141 mmol/L potassium, serum 4.2 mmol/L Lab Report: CBC W/ DIFF, [facility], [place], [facility] CX - Chemistry sodium, serum 137 mmol/L potassium, serum 3.8 mmol/L blood glucose 79 mg/dL creatinine, serum 1.02 mg/dL magnesium, serum 1.2 mg/dL Lab Report: CBC W/ DIFF, [facility], [place], [facility] CX - Hematology leukocyte count, [...] 11 .6-14.8 platelet count 22 10^3/MM^3 10*3/mm3 906-273 3823/12/10 hemoglobin, blood 10.0 g/dL 12.0-16.0 hematocrit, blood 30.2 % 36.0-46.0 mean corpuscular volume, RBC 94 fL 80-97 mean corpuscular hemoglobin, RBC 31.2 pg 27. 0-31.2 mean corpuscular hemoglobin concentration, RBC 33.1 G/DL % 31.8-35.4 red blood cell distribution width 18.1 % 11 .6-14.8 platelet count 102 10^3/MM^3 10*3/mm3 262-833 3939/12/10 erythrocyte (RBC) count 3.19 10^6/MM^3 10*6/mm3 4.04-5.4 8 lymphocytes as percent of blood leukocytes 12.6 % 20.5-51.1 monocytes as percent of blood leukocytes 8.9 % 1.7-9.3 neutrophils as percent of blood leukocytes 76.3 [...] Panel - Chemistry sodium, serum 142 mmol/L 900-974 3145/01/03 potassium, serum 3.4 mmol/L 3.5-5.2 chloride, serum 101 mmol/L 98-107 carbon dioxide, venous blood 31.9 mmol/L 21.0-32 .0 blood glucose 98 mg/dL 65-110 urea nitrogen, blood 23 mg/dL 7-18 creatinine, serum 1.60 mg/dL 0.60-1.30 alanine aminotransferase (SGPT), serum 17 U/L 12-78 aspartate aminotransferase (SGOT), serum 21 U/L 15-37 alkaline phosphatase, serum 163 U/L 50-136 calcium, serum 8.5 mg/dL 8.5-10.1 bilirubin, serum, total 0.50 mg/dL 0.00-1.00 sodium, serum 139 mmol/L 755-017 5890/01/21 potassium, serum 3.4 mmol/L 3.5-5.2 chloride, serum [...] 0.40 mg/dL 0.00-1.00 sodium, serum 138 mmol/L 009-133 4800/01/28 potassium, serum 3.2 mmol/L 3.5-5.2 chloride, serum [...] 0.40 mg/dL 0.00-1.00 sodium, serum 140 mmol/L 290-453 2998/02/04 potassium, serum 3.6 mmol/L 3.5-5.2 chloride, serum [...] 0.70 mg/dL 0.00-1.00 sodium, serum 140 mmol/L 776-172 5761/01/06 potassium, serum 3.4 mmol/L 3.5-5.2 chloride, serum [...] 0.40 mg/dL 0.00-1.00 sodium, serum 136 mmol/L 661-860 6604/04/03 potassium, serum 3.7 mmol/L 3.5-5.2 chloride, serum [...] 0.40 mg/dL 0.00-1.00 sodium, serum 136 mmol/L 314-071 7049/02/11 potassium, serum 3.1 mmol/L 3.5-5.2 chloride, serum [...] 0.50 mg/dL 0.00-1.00 sodium, serum 139 mmol/L 253-994 3293/02/18 potassium, serum 3.6 mmol/L 3.5-5.2 chloride, serum [...] 0.50 mg/dL 0.00-1.00 sodium, serum 138 mmol/L 347-753 5185/08/14 potassium, serum 4.0 mmol/L 3.5-5.2 chloride, serum [...] 11 .6-14.8 platelet count 193 10^3/MM^3 10*3/mm3 631-634 8915/04/03 leukocyte count, blood 5.6 10^3/MM^3 10*3/mm3 4.6-10.2 [...] 11 .6-14.8 platelet count 246 10^3/MM^3 10*3/mm3 464-401 2898/02/18 leukocyte count, blood 4.0 10^3/MM^3 10*3/mm3 4.6-10.2 [...] 11 .6-14.8 platelet count 134 10^3/MM^3 10*3/mm3 490-502 9538/02/11 leukocyte count, blood 4.8 10^3/MM^3 10*3/mm3 4.6-10.2 [...] 11 .6-14.8 platelet count 102 10^3/MM^3 10*3/mm3 662-316 6939/02/04 leukocyte count, blood 3.6 10^3/MM^3 10*3/mm3 4.6-10.2 [...] 11 .6-14.8 platelet count 70 10^3/MM^3 10*3/mm3 392-782 1673/01/28 leukocyte count, blood 4.2 10^3/MM^3 10*3/mm3 4.6-10.2 [...] 11 .6-14.8 platelet count 73 10^3/MM^3 10*3/mm3 524-244 3904/01/21 leukocyte count, blood 4.9 10^3/MM^3 10*3/mm3 4.6-10.2 [...] .6-14.8 platelet count 38 recounted 10^3/mm^3 10*3/mm3 515-868 6926/01/06 leukocyte count, blood 7.6 10^3/MM^3 10*3/mm3 4.6-10.2 [...] 11 .6-14.8 platelet count 132 10^3/MM^3 10*3/mm3 565-899 7088/01/03 leukocyte count, blood 8.1 10^3/MM^3 10*3/mm3 4.6-10.2 [...] Diff/Morphology - Chemistry sodium, serum 141 mmol/L 566-775 2833/01/14 potassium, serum 3.9 mmol/L 3.5-5.2 chloride, serum [...] 8.5-10.1 bilirubin, serum, total 0.50 mg/dL 0.00-1.00 chloride, serum 98 mmol/L 98-107 carbon dioxide, venous blood 33.1 mmol/L 21.0-32 .0 blood glucose 110 mg/dL 65-110 urea nitrogen, blood 20 mg/dL 7-18 creatinine, serum 1.80 mg/dL 0.60-1.30 alanine aminotransferase (SGPT), serum 25 U/L 12-78 aspartate aminotransferase (SGOT), serum 27 U/L 15-37 alkaline phosphatase, serum 174 U/L 50-136 calcium, serum 8.2 mg/dL 8.5-10.1 bilirubin, serum, total 0.40 mg/dL 0.00-1.00 sodium, serum 138 mmol/L 725-981 9760/12/24 potassium, serum 3.7 mmol/L 3.5-5.2 chloride, serum [...] 0.50 mg/dL 0.00-1.00 sodium, serum 140 mmol/L 496-134 9204/12/17 potassium, serum 3.3 mmol/L 3.5-5.2 Lab Report: CBC W/DIFF, Comp. Metabolic Panel, [...] 11 .6-14.8 platelet count 66 10^3/MM^3 10*3/mm3 114-433 7825/01/14 leukocyte count, blood 6.2 10^3/MM^3 10*3/mm3 4.6-10.2 [...] 11 .6-14.8 platelet count 22 10^3/MM^3 10*3/mm3 373-359 0484/12/17 leukocyte count, blood 18.6 10^3/MM^3 10*3/mm3 4.6-10.2 [...] 0.9 ng/mL Lab Report: cmp - Chemistry creatinine, serum 1.24 mg/dL sodium, serum 142 mmol/L potassium, serum 4.0 mmol/L blood glucose 115 mg/dL Lab Report: Comp. Metabolic Panel - Chem istry sodium, serum 142 mmol/L 083-711 3628/12/10 potassium, serum 3.9 mmol/L 3.5-5.2 chloride, serum [...] Diff/Morphology - Chemistry sodium, serum 142 mmol/L 112-199 8250/12/31 potassium, serum 3.6 mmol/L 3.5-5.2 chloride, serum [...] 12.0-16.0 Lab Report: Lipid Panel - Chemistry LDL cholesterol, serum 136 mg/dL 0-130 HDL cholesterol, serum 50 mg/dL 32-96 triglyceride, serum, fasting 113 mg/dL 30-200 cholesterol, serum 209 mg/dL 130-200 Lab Report: UADIP W/MICRO, AUTO - Chemis try protein, total urine random Trace mg/dL Negative RBC, urine, dipstick Trace Negative Lab Report: UADIP W/MICRO, AUTO - Urinal ysis urobilinogen, urine, semiquantitative (dipstick) 0.2 Normal leukocyte esterase, urine, by dipstick 1+ Negative nitrite, urine, semiquantitative Negative Neg ative urine color Yellow Colorless;Lightyellow;St raw;Yellow glucose, urine, semiquantitative Negative Neg ative ketones, urine, by test strip Negative Negati ve bilirubin, urine Negative Negative appearance, urine SlCloudy Clear specific gravity, urine 1.020 1.000-1.030 pH, urine, semiquantitative 7.0 5.0-8.5 Lab Report: VITAMIN D, 25-HYDROXY/93382, MAGNESIUM/622 - Chemistry vitamin D 25-hydroxy, serum 41 ng/mL 30-100 Encounters Code Encounter Date Provider Facility CPT-33336 Level 4 Est. Patient 19:08:42 BULB INSPECTOR Hope cohn MD PhD [facility] CPT-41289 Level 4 Est. Patient 20:04:51 CDT Hope cohn MD PhD [facility] CPT-13221 Level 3 New Patient 01:46:11 BULB INSPECTOR Hope landers MD PhD [facility] Procedures Code Procedure Name Date Entry Date Standard Desc ription CPT-J3420 Vitamin B12 1000mcg (Cyanocobalamin) 09:25:05 BULB INSPECTOR CPT-49639 Abx/Therapy Injection 09:25:05 BULB INSPECTOR CPT-G0008 Administration of Influenza Virus Vaccine 13:36:47 CDT CPT-35743 Fluzone High-Dose Intramuscular Suspension 11/15 13:36:47 CDT CPT-J0897 Prolia 60 mg 08:50:41 CDT CPT-06013 Abx/Therapy Injection 08:50:41 CDT CPT-78592 Bone Density 12:06:12 CDT CPT-39646 Bone Density 08:54:40 CDT CPT-OV Office Visit 15:37:02 CDT CPT-99075 Postop F/U Visit 15:47:49 CDT CPT-97918 Postop F/U Visit 15:21:02 CDT CPT-[facility] Transitional Care Mgmt-High 07:52:27 CDT 20 20/06/01 CPT-47900 Venipuncture Draw Fee 13:51:18 CDT CPT-00876 Venipuncture Draw Fee 10:14:55 BULB INSPECTOR CPT-77926 Venipuncture Draw Fee 13:39:45 BULB INSPECTOR CPT-OV Office Visit 15:11:22 BULB INSPECTOR CPT-65664 Venipuncture Draw Fee 09:20:49 BULB INSPECTOR CPT-53120 Venipuncture Draw Fee 16:52:15 BULB INSPECTOR CPT-09186 Venipuncture Draw Fee 10:37:24 BULB INSPECTOR CPT-93805 Venipuncture Draw Fee 08:21:21 BULB INSPECTOR CPT-47631 Venipuncture Draw Fee 08:30:20 BULB INSPECTOR CPT-49713 Venipuncture Draw Fee 14:53:21 BULB INSPECTOR CPT-72958 Venipuncture Draw Fee 09:40:56 BULB INSPECTOR CPT-42537 Venipuncture Draw Fee 10:30:47 BULB INSPECTOR CPT-41642 Venipuncture Draw Fee 10:46:17 BULB INSPECTOR CPT-37786 Venipuncture Draw Fee 11:12:45 BULB INSPECTOR CPT-79670 Venipuncture Draw Fee 09:53:33 BULB INSPECTOR CPT-23625 Venipuncture Draw Fee 11:53:51 BULB INSPECTOR CPT-70812 Venipuncture Draw Fee 10:33:50 BULB INSPECTOR CPT-87256 Venipuncture Draw Fee 10:05:01 BULB INSPECTOR CPT-25262 Venipuncture Draw Fee 14:32:52 BULB INSPECTOR CPT-65823 Venipuncture Draw Fee 09:46:13 BULB INSPECTOR CPT-75187 Venipuncture Draw Fee 11:34:27 BULB INSPECTOR CPT-84434 Venipuncture Draw Fee 13:17:16 BULB INSPECTOR CPT-98291 Venipuncture Draw Fee 12:05:39 CDT CPT-08518 Venipuncture Draw Fee 12:49:12 CDT CPT-81534 Venipuncture Draw Fee 12:37:18 CDT CPT-76811 Venipuncture Draw Fee 10:57:11 CDT CPT-12162 Venipuncture Draw Fee 13:47:40 CDT CPT-03199 Venipuncture Draw Fee 10:02:17 CDT CPT-55327 TB Tubersol 17:32:32 CDT CPT-OV Office Visit 16:21:53 CDT CPT-OV Office Visit 15:49:22 CDT CPT-OV Office Visit 17:16:31 CDT CPT-OV Office Visit 10:43:31 CDT
--- OUTSIDE RECORDS SUMMARY | 2019-02-09 13:08 | XMS REPORT | Clinical Summary ---
Author Author Renaldo, Florecita Munoz Organization [facility] Address Unknown Phone Unavailable Allergies, Adverse [...] of stroke (cerebrovascular) Colon cancer 153.9 Active oZila CRISTINA,R MA Malignant neoplasm of colon, unspecified ABDOMINAL [...] mouth every 12 hours prn ONDANSETRON HCL 77125786814 Active Laura Elder Active FLAGYL 500 MG TABS 1 pill by mouth three times daily, for diarrh ea METRONIDAZOLE 36563059627 No Longer Active Hope Benavidez MD PhD Active MAGNESIUM GLUCONATE 250 MG TABS 1 tab daily MAG NESIUM GLUCONATE 42010637121 Active Hope Benavidez MD PhD Active DYAZIDE 37.5-25 MG CAPS 1 qd TRIAMTERENE-HC TZ 56364729157 No Longer Active Hope Benavidez MD PhD Active PROZAC 20 MG CAPS 1 q d FLUOXETINE HCL 08909 511676 No Longer Active Hope Benavidez MD PhD Active INNOPRAN XL 120 MG [id number] Take one by mouth daily PROPRANOLOL HCL SR BEADS 71370702190 Active Hope Benavidez MD PhD Active POTASSIUM CHLORIDE 20 MEQ PACK by mouth twice a day prn POTASSIUM CHLORIDE 86137060389 Active Adam Yates MD Activ e CYCLOBENZAPRINE HCL 10 MG TABS 1 tablet by mouth three times daily as needed for headaches CYCLOBENZAPRINE HCL 89894848289 Active Selena Yates MD Active SIMVASTATIN 40 MG TABS 1 qd SIMVASTATIN 004 49111175 No Longer Active Adam Yates MD Active MELOXICAM 15 MG TABS 1 qd MELOXICAM 2305925 8030 No Longer Active Adam Yates MD Active ATENOLOL 50 MG TABS 1/2 tab q other day ATENOLOL 90994303193 Active Hope Benavidez MD PhD Active OMEPRAZOLE 20 MG CPDR 1 tablet by mouth daily for GERD OMEPRAZOLE 50213857586 Active Hope Benavidez MD PhD Active IMODIUM A-D 2 MG TABS 2 onset at diarrhea and prn. LOPERAMIDE HCL 68350160366 Active Hope Benavidez MD PhD Active PHENADOZ 25 MG SUPP 1 every 4 hrs. PRN PROMETHAZINE HCL 14019690655 Active Hope Benavidez MD PhD Active PROMETHAZINE HCL 25 MG TABS 1 Q. 4 hr. PRN PROMETH AZINE HCL 41214678651 Active Hope Benavidez MD PhD Active EXCEDRIN EXTRA STRENGTH 250-250-65 MG TABS 1-2 q6h PRN headache 201 04/16/21 [id number]-[id number]-RHXENILY 88614643635 Active Hope Benavidez MD PhD Active FLAGYL 500 MG TABS 1 qid METRONIDAZOLE 84816 392922 No Longer Active Adam Yates MD Active LEVAQUIN 750 MG TABS 1 qd LEVOFLOXACIN 5486 1836869 No Longer Active Adam Yates MD Active ADULT ASPIRIN LOW STRENGTH 81 MG TBDP 1 qd A SPIRIN 38921181858 Active Hope Benavidez MD PhD Active LEVAQUIN 750 MG TABS 1 qd LEVAQUIN 750 MG T ABS 416501 LEVOFLOXACIN Inactive FLAGYL 500 MG TABS 1 qid FLAGYL 500 MG TABS 140818 METRONIDAZOLE Inactive MELOXICAM 15 MG TABS 1 qd MELOXICAM 15 MG T ABS 926784 MELOXICAM Inactive SIMVASTATIN 40 MG TABS 1 qd SIMVASTATIN 40 MG TABS 667887 SIMVASTATIN Inactive PROZAC 20 MG CAPS 1 q d PROZAC 20 MG CAPS 31 0385 FLUOXETINE HCL Inactive DYAZIDE 37.5-25 MG CAPS 1 qd DYAZIDE 37.5 -25 MG CAPS 454444 TRIAMTERENE-HCTZ Inactive FLAGYL 500 MG TABS 1 pill by mouth three times daily, for diarrh ea FLAGYL 500 MG TABS 821873 METRONIDAZOLE Inactive Advance Directives Directive Description Start [...] - Chem istry sodium, serum 137 mmol/L 394-617 1113/11/01 potassium, serum 3.7 mmol/L 3.5-5.2 chloride, serum 100 mmol/L 98-107 carbon dioxide, venous blood 31.8 mmol/L 21.0-32 .0 blood glucose 98 mg/dL 65-110 calcium, serum 8.6 mg/dL 8.5-10.1 urea nitrogen, blood 23 mg/dL 7-18 creatinine, serum 1.50 mg/dL 0.60-1.30 sodium, serum 136 mmol/L 752-129 6113/05/02 potassium, serum 4.1 mmol/L 3.5-5.2 chloride, serum 99 mmol/L 98-107 carbon dioxide, venous blood 30.7 mmol/L 21.0-32 .0 blood glucose 79 mg/dL 65-110 calcium, serum 8.7 mg/dL 8.5-10.1 urea nitrogen, blood 11 mg/dL 7-18 creatinine, serum 1.10 mg/dL 0.60-1.30 Lab Report: [facility] - Chemistry sodium, serum 141 [...] 11 .6-14.8 platelet count 133 10^3/MM^3 10*3/mm3 571-629 5481/01/17 leukocyte count, blood 3.1 10^3/MM^3 10*3/mm3 4.6-10.2 [...] 11 .6-14.8 platelet count 22 10^3/MM^3 10*3/mm3 641-325 7246/11/19 leukocyte count, blood 10.4 10^3/MM^3 10*3/mm3 4.6-10.2 [...] Verified By Repeat Analysis 10^3/mm ^3 10*3/mm3 024-681 0468/12/10 leukocyte count, blood 7.8 10^3/MM^3 10*3/mm3 4.6-10.2 [...] Panel - Chemistry sodium, serum 139 mmol/L 126-914 5916/12/03 potassium, serum 3.7 mmol/L 3.5-5.2 chloride, serum [...] 0.40 mg/dL 0.00-1.00 sodium, serum 142 mmol/L 050-906 5217/01/03 potassium, serum 3.4 mmol/L 3.5-5.2 chloride, serum [...] 0.50 mg/dL 0.00-1.00 sodium, serum 137 mmol/L 120-010 3844/10/01 potassium, serum 3.5 mmol/L 3.5-5.2 chloride, serum [...] 0.60 mg/dL 0.00-1.00 sodium, serum 136 mmol/L 017-492 6436/10/08 potassium, serum 3.1 mmol/L 3.5-5.2 chloride, serum [...] 0.60 mg/dL 0.00-1.00 sodium, serum 139 mmol/L 692-225 6387/10/17 potassium, serum 3.1 mmol/L 3.5-5.2 chloride, serum [...] 0.30 mg/dL 0.00-1.00 sodium, serum 140 mmol/L 579-514 8641/01/06 potassium, serum 3.4 mmol/L 3.5-5.2 chloride, serum [...] 0.40 mg/dL 0.00-1.00 sodium, serum 139 mmol/L 532-616 4723/01/21 potassium, serum 3.4 mmol/L 3.5-5.2 chloride, serum [...] 0.40 mg/dL 0.00-1.00 sodium, serum 138 mmol/L 193-693 9584/01/28 potassium, serum 3.2 mmol/L 3.5-5.2 chloride, serum [...] 0.40 mg/dL 0.00-1.00 sodium, serum 140 mmol/L 183-225 8432/02/04 potassium, serum 3.6 mmol/L 3.5-5.2 chloride, serum [...] 0.70 mg/dL 0.00-1.00 sodium, serum 136 mmol/L 778-788 0704/02/11 potassium, serum 3.1 mmol/L 3.5-5.2 chloride, serum [...] 0.50 mg/dL 0.00-1.00 sodium, serum 138 mmol/L 279-226 5246/08/14 potassium, serum 4.0 mmol/L 3.5-5.2 chloride, serum [...] 0.40 mg/dL 0.00-1.00 sodium, serum 136 mmol/L 048-760 6618/04/03 potassium, serum 3.7 mmol/L 3.5-5.2 chloride, serum [...] 0.40 mg/dL 0.00-1.00 sodium, serum 139 mmol/L 536-840 5314/02/18 potassium, serum 3.6 mmol/L 3.5-5.2 chloride, serum [...] 11 .6-14.8 platelet count 246 10^3/MM^3 10*3/mm3 116-625 5376/08/14 leukocyte count, blood 5.8 10^3/MM^3 10*3/mm3 4.6-10.2 [...] 11 .6-14.8 platelet count 193 10^3/MM^3 10*3/mm3 298-911 1325/02/18 leukocyte count, blood 4.0 10^3/MM^3 10*3/mm3 4.6-10.2 [...] 11 .6-14.8 platelet count 134 10^3/MM^3 10*3/mm3 952-758 6314/02/11 leukocyte count, blood 4.8 10^3/MM^3 10*3/mm3 4.6-10.2 [...] 11 .6-14.8 platelet count 102 10^3/MM^3 10*3/mm3 622-271 3591/02/04 leukocyte count, blood 3.6 10^3/MM^3 10*3/mm3 4.6-10.2 [...] 11 .6-14.8 platelet count 70 10^3/MM^3 10*3/mm3 851-560 0810/01/28 leukocyte count, blood 4.2 10^3/MM^3 10*3/mm3 4.6-10.2 [...] 11 .6-14.8 platelet count 73 10^3/MM^3 10*3/mm3 345-921 8014/01/03 leukocyte count, blood 8.1 10^3/MM^3 10*3/mm3 4.6-10.2 [...] 11 .6-14.8 platelet count 96 10^3/MM^3 10*3/mm3 541-262 2123/01/21 leukocyte count, blood 4.9 10^3/MM^3 10*3/mm3 4.6-10.2 [...] .6-14.8 platelet count 38 recounted 10^3/mm^3 10*3/mm3 493-585 1647/10/08 leukocyte count, blood 2.9 10^3/MM^3 10*3/mm3 4.6-10.2 [...] 11 .6-14.8 platelet count 229 10^3/MM^3 10*3/mm3 930-818 9751/10/17 leukocyte count, blood 12.0 10^3/MM^3 10*3/mm3 4.6-10.2 [...] 11 .6-14.8 platelet count 232 10^3/MM^3 10*3/mm3 020-745 6503/10/01 leukocyte count, blood 8.3 10^3/MM^3 10*3/mm3 4.6-10.2 [...] 11 .6-14.8 platelet count 378 10^3/MM^3 10*3/mm3 842-892 4249/01/06 leukocyte count, blood 7.6 10^3/MM^3 10*3/mm3 4.6-10.2 [...] 11 .6-14.8 platelet count 132 10^3/MM^3 10*3/mm3 130-005 7996/12/03 leukocyte count, blood 8.2 10^3/MM^3 10*3/mm3 4.6-10.2 [...] Diff/Morphology - Chemistry sodium, serum 141 mmol/L 468-987 9686/11/25 potassium, serum 3.9 mmol/L 3.5-5.2 chloride, serum [...] 0.50 mg/dL 0.00-1.00 sodium, serum 137 mmol/L 955-097 9112/11/12 potassium, serum 3.2 mmol/L 3.5-5.2 chloride, serum [...] 0.40 mg/dL 0.00-1.00 sodium, serum 140 mmol/L 882-691 3592/12/17 potassium, serum 3.3 mmol/L 3.5-5.2 chloride, serum [...] 0.40 mg/dL 0.00-1.00 sodium, serum 138 mmol/L 800-075 8781/12/24 potassium, serum 3.7 mmol/L 3.5-5.2 chloride, serum [...] 0.50 mg/dL 0.00-1.00 sodium, serum 135 mmol/L 754-580 0117/10/22 potassium, serum 3.0 mmol/L 3.5-5.2 chloride, serum [...] 0.50 mg/dL 0.00-1.00 sodium, serum 138 mmol/L 268-884 3417/11/05 potassium, serum 3.9 mmol/L 3.5-5.2 chloride, serum 98 mmol/L 98-107 carbon dioxide, venous blood 36.2 mmol/L 21.0-32 .0 blood glucose 92 mg/dL 65-110 urea nitrogen, blood 23 mg/dL 7-18 creatinine, serum 1.60 mg/dL 0.60-1.30 alanine aminotransferase (SGPT), serum 29 U/L -78 aspartate aminotransferase (SGOT), serum 26 U/L 15-37 alkaline phosphatase, serum 195 U/L 50-136 calcium, serum 8.3 mg/dL 8.5-10.1 bilirubin, serum, total 0.40 mg/dL 0.00-1.00 sodium, serum 128 mmol/L 304-277 8932/10/29 potassium, serum 2.6 mmol/L 3.5-5.2 chloride, serum [...] 0.50 mg/dL 0.00-1.00 sodium, serum 141 mmol/L 322-278 4049/01/14 potassium, serum 3.9 mmol/L 3.5-5.2 chloride, serum [...] 11 .6-14.8 platelet count 22 10^3/MM^3 10*3/mm3 567-651 2562/10/22 leukocyte count, blood 14.7 10^3/MM^3 10*3/mm3 4.6-10.2 [...] 11 .6-14.8 platelet count 428 10^3/MM^3 10*3/mm3 135-638 1890/11/05 leukocyte count, blood 16.4 10^3/MM^3 10*3/mm3 4.6-10.2 [...] 11 .6-14.8 platelet count 215 10^3/MM^3 10*3/mm3 968-688 9074/11/12 leukocyte count, blood 12.1 10^3/MM^3 10*3/mm3 4.6-10.2 [...] 11 .6-14.8 platelet count 157 10^3/MM^3 10*3/mm3 730-199 0781/10/29 leukocyte count, blood 26.3 10^3/MM^3 10*3/mm3 4.6-10.2 [...] 11 .6-14.8 platelet count 268 10^3/MM^3 10*3/mm3 102-603 8343/12/24 leukocyte count, blood 14.0 10^3/MM^3 10*3/mm3 4.6-10.2 [...] 11 .6-14.8 platelet count 66 10^3/MM^3 10*3/mm3 564-629 4000/11/25 leukocyte count, blood 21.1 10^3/MM^3 10*3/mm3 4.6-10.2 [...] 11 .6-14.8 platelet count 46 10^3/MM^3 10*3/mm3 930-258 8194/12/17 leukocyte count, blood 18.6 10^3/MM^3 10*3/mm3 4.6-10.2 [...] - Chem istry sodium, serum 141 mmol/L 271-579 2502/11/19 potassium, serum 3.9 mmol/L 3.5-5.2 chloride, serum [...] 0.50 mg/dL 0.00-1.00 sodium, serum 142 mmol/L 605-834 9236/12/10 potassium, serum 3.9 mmol/L 3.5-5.2 chloride, serum [...] Diff/Morphology - Chemistry sodium, serum 142 mmol/L 263-198 1833/12/31 potassium, serum 3.6 mmol/L 3.5-5.2 chloride, serum [...] 12.0-16.0 Encounters Code Encounter Date Provider Facility CPT-01061 Level 3 New Patient 01:46:11 [employer]HEMATICS TE[employer] Hope landers MD PhD [facility] Procedures Code Procedure Name Date Entry Date Standard Desc ription CPT-44612 Postop F/U Visit 15:47:49 CDT CPT-81586 Postop F/U Visit 15:21:02 CDT CPT-TCM Transitional Care Mgmt-High 07:52:27 CDT 20 20/06/01 CPT-51264 Venipuncture Draw Fee 13:51:18 CDT CPT-42502 Venipuncture Draw Fee 10:14:55 [employer] CPT-20260 Venipuncture Draw Fee 13:39:45 [employer]HEMATICS TEACHER CPT-OV Office Visit 15:11:22 [employer] CPT-50410 Venipuncture Draw Fee 09:20:49 [employer]HEMATICS TE[employer] CPT-41754 Venipuncture Draw Fee 16:52:15 [employer]HEMATICS TEACHER CPT-24470 Venipuncture Draw Fee 10:37:24 [employer]HEMATICS TE[employer]ER CPT-14979 Venipuncture Draw Fee 08:21:21 [employer]HEMATICS TEACHER CPT-57013 Venipuncture Draw Fee 08:30:20 MATHEMATICS TEACHER CPT-62345 Venipuncture Draw Fee 14:53:21 MATHEMATICS TEACHER CPT-01152 Venipuncture Draw Fee 09:40:56 [employer]HEMATICS TEACHER CPT-82385 Venipuncture Draw Fee 10:30:47 [employer]HEMATICS TEACHER CPT-57336 Venipuncture Draw Fee 10:46:17 [employer]HEMATICS TEACHER CPT-72441 Venipuncture Draw Fee 11:12:45 MATHEMATICS TEACHER CPT-85519 Venipuncture Draw Fee 09:53:33 MATHEMATICS TEACHER CPT-84957 Venipuncture Draw Fee 11:53:51 MATHEMATICS TEACHER CPT-18466 Venipuncture Draw Fee 10:33:50 MATHEMATICS TEACHER CPT-91605 Venipuncture Draw Fee 10:05:01 MATHEMATICS TEACHER CPT-54455 Venipuncture Draw Fee 14:32:52 MATHEMATICS TEACHER CPT-03216 Venipuncture Draw Fee 09:46:13 MATHEMATICS TEACHER CPT-18894 Venipuncture Draw Fee 11:34:27 MATHEMATICS TEACHER CPT-52314 Venipuncture Draw Fee 13:17:16 MATHEMATICS TEACHER CPT-86499 Venipuncture Draw Fee 12:05:39 CDT CPT-35600 Venipuncture Draw Fee 12:49:12 CDT CPT-34265 Venipuncture Draw Fee 12:37:18 CDT CPT-46838 Venipuncture Draw Fee 10:57:11 CDT CPT-95281 Venipuncture Draw Fee 13:47:40 CDT CPT-56007 Venipuncture Draw Fee 10:02:17 CDT CPT-42396 TB Tubersol 17:32:32 CDT CPT-OV Office Visit 16:21:53 CDT CPT-OV Office Visit 15:49:22 CDT CPT-OV Office Visit 17:16:31 CDT CPT-OV Office Visit 10:43:31 CDT
--- OUTSIDE RECORDS SUMMARY | 2019-02-09 13:08 | XMS REPORT ---
Author Author [facility] YUDITH Rivera Organization [facility] Address [address] [place] [id number] Phone [phone] Care Team Providers Care Commercial Collections Specialist Name Role Phone OSITO TAVERAS MD PP [phone] Summary purpose TRANSITION OF CARE AUTO GENERATION [...]
--- OUTSIDE RECORDS SUMMARY | 2019-02-09 13:09 | XMS REPORT | Clinical Summary ---
Author Author Renaldo, Florecita Munoz Organization [facility] Address Unknown Phone Unavailable Allergies, Adverse Reactions, [...] status (age-related) (natural) V49.8 1 Active Citlaly DAVIDSON Asymptomatic postmenopausal status (age- related) (natural) Diarrhea 787.91 Active Hope Benavidez MD PhD Diarrhea Osteoporosis 733.00 Active Hope Benavidez MD PhD Osteoporosis, unspecified Dysuria 788.1 Active Citlaly MEREDITH Dysuria ABDOMINAL PAIN, RIGHT LOWER QUADRANT ICD-789.03 Inactive [...] Generic Name ND Status Provider Patient Instruction BACTRIM DS 800-160 MG TABS 1 pill by mouth twice daily, for UTI SULFAMETHOXAZOLE-TRIMETHOPRIM 65682552489 No Longer Active Lisa Benavidez MD PhD Active PROLIA 60 MG/ML SOLN 1 shot every 6 months for osteoprosis DENOSUMAB 11736804778 Active Hope Benavidez MD PhD Active CALCIUM + D + K 750-500-40 MG-UNT-MCG TABS 1 tab by mouth tw ice daily CALCIUM-VITAMIN D-VITAMIN K 19426096422 Active Hope landers MD PhD Active DAILY VALUE MULTIVITAMIN TABS 1 tab by mouth twice daily MULTIPLE VITAMIN 53685614487 Active Hope Benavidez MD PhD Active FISH OIL 306 MG CAPS 1 tab by mouth three times daily OMEGA-3 FATTY ACIDS 12460906519 Active Hope Benavidez MD PhD Active LUTEIN 10 MG TABS 1 tab daily LUTEIN 73500957682 Act cash Hope Benavidez MD PhD Active FLORANEX PACK 1 pack three times daily, for bowel health LACTOBACILLUS 40591717124 Active Hope Benavidez MD PhD Active LOMOTIL 2.5-0.025 MG TABS 1 tab by mouth prn DIPHENOXYLATE-ATROPINE 66394744596 Active Hope Benavidez MD PhD Active TRIAMTERENE-HCTZ 37.5-25 MG TABS 1 tab by mouth daily TRIAMTERENE-HCTZ 42583085370 Active Hope Benavidez MD PhD Acti ve IRON 325 (65 FE) MG TABS 1 tab daily FERROUS SULF ATE 17715659106 Active Hope Benavidez MD PhD Active MAGNESIUM GLUCONATE 250 MG TABS 1 tab tid MAGN ESIUM GLUCONATE 60681144112 Active Adam Yates MD Active ATENOLOL 50 MG TABS 1/2 tab q other day -- ATE NOLOL 47471603393 Active Adam Yates MD Active PROPRANOLOL HCL 80 MG TABS 1 tab tue. and thur. PROPRANOLOL HCL 82443910610 Active Adam Yates MD Active CYCLOBENZAPRINE HCL 10 MG TABS 1 tablet by mouth three times daily as needed for headaches CYCLOBENZAPRINE HCL 80004810791 No Longe r Active Adam Yates MD Active OMEPRAZOLE 20 MG CPDR 1 tablet by mouth daily for GERD OMEPRAZOLE 13278932717 No Longer Active Adam Yates MD A ctive ZOFRAN 8 MG TABS 1 tab by mouth every 12 hours prn 201 05/16/09 ONDANSETRON HCL 51547342246 No Longer Active Adam Yates MD Active PHENADOZ 25 MG SUPP 1 every 4 hrs. PRN PROMETHA ZINE HCL 72170543554 No Longer Active Adam Yates MD Active POTASSIUM CHLORIDE 20 MEQ PACK by mouth twice a day prn POTASSIUM CHLORIDE 95042525023 No Longer Active Adam Yates MD Active PROMETHAZINE HCL 25 MG TABS 1 Q. 4 hr. PRN PROM ETHAZINE HCL 44912640637 No Longer Active Adam Yates MD Active INNOPRAN XL 120 MG [id number] Take one by mouth daily 2 PROPRANOLOL HCL SR BEADS 51207909692 No Longer Active Adam Yates MD A ctive FLAGYL 500 MG TABS 1 pill by mouth three times daily, for diarrh ea METRONIDAZOLE 83765809640 No Longer Active Hope Benavidez MD PhD Active DYAZIDE 37.5-25 MG CAPS 1 qd TRIAMTERENE-HC TZ 98129797699 No Longer Active Hope Benavidez MD PhD Active PROZAC 20 MG CAPS 1 q d FLUOXETINE HCL 50088 691066 No Longer Active Hope Benavidez MD PhD Active SIMVASTATIN 40 MG TABS 1 qd SIMVASTATIN 004 12208566 No Longer Active Adam Yates MD Active MELOXICAM 15 MG TABS 1 qd MELOXICAM 4957164 6970 No Longer Active Adam Yates MD Active IMODIUM A-D 2 MG TABS 2 onset at diarrhea and prn. LOPERAMIDE HCL 64977484549 Active Hope Benavidez MD PhD Active EXCEDRIN EXTRA STRENGTH 250-250-65 MG TABS 1-2 q6h PRN headache 201 04/16/21 [id number] 46310673869 Active Hope Benavidez MD PhD Active FLAGYL 500 MG TABS 1 qid METRONIDAZOLE 22253 118139 No Longer Active Adam Yates MD Active LEVAQUIN 750 MG TABS 1 qd LEVOFLOXACIN 5486 9623125 No Longer Active Adam Yates MD Active ADULT ASPIRIN LOW STRENGTH 81 MG TBDP 1 qd A SPIRIN 62304513600 Active Hope Benavidez MD PhD Active LEVAQUIN 750 MG TABS 1 qd LEVAQUIN 750 MG T ABS 496568 LEVOFLOXACIN Inactive FLAGYL 500 MG TABS 1 qid FLAGYL 500 MG TABS 936584 METRONIDAZOLE Inactive MELOXICAM 15 MG TABS 1 qd MELOXICAM 15 MG T ABS 977647 MELOXICAM Inactive SIMVASTATIN 40 MG TABS 1 qd SIMVASTATIN 40 MG TABS 104063 SIMVASTATIN Inactive PROZAC 20 MG CAPS 1 q d PROZAC 20 MG CAPS 31 0385 FLUOXETINE HCL Inactive DYAZIDE 37.5-25 MG CAPS 1 qd DYAZIDE 37.5 -25 MG CAPS 355834 TRIAMTERENE-HCTZ Inactive INNOPRAN XL 120 MG [id number] Take one by mouth daily 2 INNOPRAN XL 120 MG [id number] PROPRANOLOL HCL SR BEADS Inactive PROMETHAZINE HCL 25 MG TABS 1 Q. 4 hr. PRN PROMETHAZINE HCL 25 MG TABS 246653 PROMETHAZINE HCL Inactive POTASSIUM CHLORIDE 20 MEQ PACK by mouth twice a day prn POTASSIUM CHLORIDE 20 MEQ PACK 874775 POTASSIUM CHLORIDE Inactive PHENADOZ 25 MG SUPP 1 every 4 hrs. PRN PHENADOZ 2 5 MG SUPP 649360 PROMETHAZINE HCL Inactive ZOFRAN 8 MG TABS 1 tab by mouth every 12 hours prn 201 05/16/09 ZOFRAN 8 MG TABS 404130 ONDANSETRON HCL Inactive OMEPRAZOLE 20 MG CPDR 1 tablet by mouth daily for GERD OMEPRAZOLE 20 MG CPDR 826281 OMEPRAZOLE Inactive CYCLOBENZAPRINE HCL 10 MG TABS 1 tablet by mouth three times daily as needed for headaches CYCLOBENZAPRINE HCL 10 MG TABS 780124 CYCLOBENZAPRINE HCL Inactive FLAGYL 500 MG TABS 1 pill by mouth three times daily, for diarrh ea FLAGYL 500 MG TABS 978620 METRONIDAZOLE Inactive BACTRIM DS 800-160 MG TABS [...] Range Description Chart Maintenance: labs added to [employer] et - Chemistry magnesium, serum 2.0 mg/dL Chart Maintenance: Outside labs entered on [facility] - Chemistry sodium, serum 139 mmol/L potassium, serum 3.9 mmol/L blood glucose 85 mg/dL creatinine, serum 1.26 mg/dL aspartate aminotransferase (SGOT), serum 33 U/L alanine aminotransferase (SGPT), serum 44 U/L alkaline phosphatase, serum 127 U/L Chart Maintenance: Outside labs entered on [facility] - Hematology leukocyte count, blood 4.6 10*3/mm3 hemoglobin, blood 13.6 g/dL platelet count 162 10*3/mm3 Lab Report: Basic Metabolic Panel - Chem istry sodium, serum 136 mmol/L 961-517 0357/05/02 potassium, serum 4.1 mmol/L 3.5-5.2 chloride, serum [...] DIFF, BMP, KANOT, AN AEROBIC CX - Hematology leukocyte count, blood 8.7 10*3/mm3 hemoglobin, blood 10.8 g/dL platelet count 319 10*3/mm3 Lab Report: CBC W/DIFF - Hematology leukocyte count, blood 7.8 10^3/MM^3 10*3/mm3 4.6-10.2 platelet count 102 10^3/MM^3 10*3/mm3 362-701 0948/12/10 hematocrit, blood 30.2 % 36.0-46.0 mean corpuscular volume, RBC 94 fL 80-97 mean corpuscular hemoglobin, RBC 31.2 pg 27. 0-31.2 mean corpuscular hemoglobin concentration, RBC 33.1 G/DL % 31.8-35.4 red blood cell distribution width 18.1 % 11 .6-14.8 neutrophils as percent of blood leukocytes 76.3 % 42.2-75.2 monocytes as percent of blood leukocytes 8.9 % 1.7-9.3 lymphocytes as percent of blood leukocytes 12.6 % 20.5-51.1 erythrocyte (RBC) count 3.19 10^6/MM^3 10*6/mm3 4.04-5.4 8 hemoglobin, blood 10.0 g/dL 12.0-16.0 leukocyte count, blood 9.0 10^3/MM^3 10*3/mm3 4.6-10.2 [...] 11 .6-14.8 platelet count 133 10^3/MM^3 10*3/mm3 177-407 8044/01/17 leukocyte count, blood 3.1 10^3/MM^3 10*3/mm3 4.6-10.2 [...] Panel - Chemistry sodium, serum 139 mmol/L 488-185 5405/01/21 potassium, serum 3.4 mmol/L 3.5-5.2 chloride, serum [...] 0.40 mg/dL 0.00-1.00 sodium, serum 138 mmol/L 936-935 1848/01/28 potassium, serum 3.2 mmol/L 3.5-5.2 chloride, serum [...] 0.40 mg/dL 0.00-1.00 sodium, serum 140 mmol/L 921-482 3858/02/04 potassium, serum 3.6 mmol/L 3.5-5.2 chloride, serum [...] 0.70 mg/dL 0.00-1.00 sodium, serum 136 mmol/L 423-144 3911/02/11 potassium, serum 3.1 mmol/L 3.5-5.2 chloride, serum [...] 0.50 mg/dL 0.00-1.00 sodium, serum 139 mmol/L 090-062 0805/02/18 potassium, serum 3.6 mmol/L 3.5-5.2 chloride, serum [...] 0.50 mg/dL 0.00-1.00 sodium, serum 140 mmol/L 826-467 4328/01/06 potassium, serum 3.4 mmol/L 3.5-5.2 chloride, serum [...] 0.40 mg/dL 0.00-1.00 sodium, serum 136 mmol/L 307-538 1966/04/03 potassium, serum 3.7 mmol/L 3.5-5.2 chloride, serum [...] serum, total 0.40 mg/dL 0.00-1.00 chloride, serum 101 mmol/L 98-107 carbon dioxide, [...] 0.50 mg/dL 0.00-1.00 sodium, serum 142 mmol/L 265-739 1365/01/03 potassium, serum 3.4 mmol/L 3.5-5.2 sodium, serum 139 mmol/L 231-927 3287/12/03 potassium, serum 3.7 mmol/L 3.5-5.2 chloride, serum [...] 0.40 mg/dL 0.00-1.00 sodium, serum 138 mmol/L 546-669 4735/08/14 potassium, serum 4.0 mmol/L 3.5-5.2 chloride, serum [...] 11 .6-14.8 platelet count 193 10^3/MM^3 10*3/mm3 274-529 9576/12/03 erythrocyte (RBC) count 3.55 10^6/MM^3 10*6/mm3 4.04-5.4 8 lymphocytes as percent of blood leukocytes 16.8 % 20.5-51.1 monocytes as percent of blood leukocytes 10.1 % 1.7-9.3 neutrophils as percent of blood leukocytes 70.3 % 42.2-75.2 leukocyte count, blood 8.2 10^3/MM^3 10*3/mm3 4.6-10.2 mean corpuscular hemoglobin concentration, RBC 33.1 G/DL % 31.8-35.4 mean corpuscular hemoglobin, RBC 31.1 pg 27. 0-31.2 mean corpuscular volume, RBC 94 fL 80-97 hematocrit, blood 33.3 % 36.0-46.0 hemoglobin, blood 11.0 g/dL 12.0-16.0 red blood cell distribution width 17.8 % 11 .6-14.8 platelet count 98 10^3/MM^3 10*3/mm3 321-805 2437/01/03 leukocyte count, blood 8.1 10^3/MM^3 10*3/mm3 4.6-10.2 [...] 11 .6-14.8 platelet count 96 10^3/MM^3 10*3/mm3 917-263 9909/01/06 leukocyte count, blood 7.6 10^3/MM^3 10*3/mm3 4.6-10.2 [...] 11 .6-14.8 platelet count 132 10^3/MM^3 10*3/mm3 124-721 8822/04/03 leukocyte count, blood 5.6 10^3/MM^3 10*3/mm3 4.6-10.2 [...] 11 .6-14.8 platelet count 246 10^3/MM^3 10*3/mm3 941-050 5298/02/18 leukocyte count, blood 4.0 10^3/MM^3 10*3/mm3 4.6-10.2 [...] 11 .6-14.8 platelet count 134 10^3/MM^3 10*3/mm3 894-525 4044/02/11 leukocyte count, blood 4.8 10^3/MM^3 10*3/mm3 4.6-10.2 [...] 11 .6-14.8 platelet count 102 10^3/MM^3 10*3/mm3 867-372 5806/02/04 leukocyte count, blood 3.6 10^3/MM^3 10*3/mm3 4.6-10.2 [...] 11 .6-14.8 platelet count 70 10^3/MM^3 10*3/mm3 692-874 8110/01/28 leukocyte count, blood 4.2 10^3/MM^3 10*3/mm3 4.6-10.2 [...] 11 .6-14.8 platelet count 73 10^3/MM^3 10*3/mm3 379-040 9048/01/21 leukocyte count, blood 4.9 10^3/MM^3 10*3/mm3 4.6-10.2 [...] Diff/Morphology - Chemistry sodium, serum 141 mmol/L 574-699 2300/01/14 potassium, serum 3.9 mmol/L 3.5-5.2 chloride, serum [...] 0.50 mg/dL 0.00-1.00 sodium, serum 140 mmol/L 821-816 6682/12/17 potassium, serum 3.3 mmol/L 3.5-5.2 sodium, serum 138 mmol/L 140-991 3427/12/24 potassium, serum 3.7 mmol/L 3.5-5.2 chloride, serum [...] corpuscular hemoglobin, RBC 32.0 pg 27. 0-31.2 neutrophils as percent of blood leukocytes 69.2 % 42.2-75.2 monocytes as percent of blood leukocytes 13.5 % 1.7-9.3 lymphocytes as percent of blood leukocytes 14.2 % 20.5-51.1 erythrocyte (RBC) count 2.78 10^6/MM^3 10*6/mm3 4.04-5.4 8 hemoglobin, blood 8.8 g/dL 12.0-16.0 mean corpuscular hemoglobin concentration, RBC 32.3 G/DL % 31.8-35.4 red blood cell distribution width 18.8 % 11 .6-14.8 platelet count 66 10^3/MM^3 10*3/mm3 712-382 2430/12/17 leukocyte count, blood 18.6 10^3/MM^3 10*3/mm3 4.6-10.2 hematocrit, blood 27.3 % 36.0-46.0 mean corpuscular volume, RBC 98 fL 80-97 mean corpuscular hemoglobin, RBC 31.8 pg 27. 0-31.2 mean corpuscular hemoglobin concentration, RBC 32.3 G/DL % 31.8-35.4 red blood cell distribution width 17.6 % 11 .6-14.8 platelet count 75 10^3/MM^3 10*3/mm3 519-739 7259/01/14 leukocyte count, blood 6.2 10^3/MM^3 10*3/mm3 4.6-10.2 [...] - Chem istry sodium, serum 142 mmol/L 198-964 9067/12/10 potassium, serum 3.9 mmol/L 3.5-5.2 chloride, serum [...] CBC W /DIFF, Manual Diff/Morphology - Chemistry urea nitrogen, blood 36 mg/dL 7-18 creatinine, serum 2.20 mg/dL 0.60-1.30 alanine aminotransferase (SGPT), serum 19 U/L 12-78 aspartate aminotransferase (SGOT), serum 24 U/L 15-37 alkaline phosphatase, serum 173 U/L 50-136 calcium, serum 8.5 mg/dL 8.5-10.1 bilirubin, serum, total 0.40 mg/dL 0.00-1.00 blood glucose 101 mg/dL 65-110 carbon dioxide, venous blood 30.0 mmol/L 21.0-32 .0 chloride, serum 101 mmol/L 98-107 potassium, serum 3.6 mmol/L 3.5-5.2 sodium, serum 142 mmol/L 136-145 Lab Report: Comp. Metabolic Panel, CBC W [...] Panel - Chemistry cholesterol, serum 209 mg/dL 336-156 9218/09/11 triglyceride, serum, fasting 113 mg/dL 30-200 HDL [...] 1.020 1.000-1.030 pH, urine, semiquantitative 7.0 5.0-8.5 Encounters Code Encounter Date Provider Facility CPT-05505 Level 4 Est. 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 Hope landers MD PhD [facility] Procedures Code Procedure Name Date Entry Date Standard Desc ription CPT-G0008 Administration of Influenza Virus Vaccine 13:36:47 CDT CPT-53027 Fluzone High-Dose Intramuscular Suspension 11/15 13:36:47 CDT CPT-J0897 Prolia 60 mg 08:50:41 CDT CPT-24262 Abx/Therapy Injection 08:50:41 CDT CPT-06147 Bone Density 12:06:12 CDT CPT-13261 Bone Density 08:54:40 CDT CPT-OV Office Visit 15:37:02 CDT CPT-76508 Postop F/U Visit 15:47:49 CDT CPT-87349 Postop F/U Visit 15:21:02 CDT CPT-TCMH Transitional Care Mgmt-High 07:52:27 CDT 20 20/06/01 CPT-72369 Venipuncture Draw Fee 13:51:18 CDT CPT-43777 Venipuncture Draw Fee 10:14:55 [employer] CPT-21720 Venipuncture Draw Fee 13:39:45 [employer] CPT-OV Office Visit 15:11:22 [employer] CPT-66871 Venipuncture Draw Fee 09:20:49 [employer] UP WORK[employer] CPT-81760 Venipuncture Draw Fee 16:52:15 [employer] UP WORK[employer] CPT-17315 Venipuncture Draw Fee 10:37:24 [employer] UP WORK[employer] CPT-14889 Venipuncture Draw Fee 08:21:21 [employer] UP WORK[employer] CPT-97428 Venipuncture Draw Fee 08:30:20 [employer] UP WORKER CPT-91887 Venipuncture Draw Fee 14:53:21 [employer] UP WORKER CPT-58553 Venipuncture Draw Fee 09:40:56 [employer] UP WORKER CPT-62730 Venipuncture Draw Fee 10:30:47 [employer] UP WORKER CPT-73385 Venipuncture Draw Fee 10:46:17 [employer] UP WORK[employer] CPT-59111 Venipuncture Draw Fee 11:12:45 [employer] UP WORK[employer] CPT-08969 Venipuncture Draw Fee 09:53:33 [employer] UP WORKER CPT-54285 Venipuncture Draw Fee 11:53:51 [employer] UP WORKER CPT-35269 Venipuncture Draw Fee 10:33:50 [employer] UP WORKER CPT-19574 Venipuncture Draw Fee 10:05:01 [employer] UP WORKER CPT-08186 Venipuncture Draw Fee 14:32:52 [employer] UP WORKER CPT-46729 Venipuncture Draw Fee 09:46:13 [employer]ING [employer] UP WORKER CPT-18718 Venipuncture Draw Fee 11:34:27 [employer]ING [employer] SET UP WORKER CPT-46774 Venipuncture Draw Fee 13:17:16 [employer]ING [employer] UP WORKER CPT-72481 Venipuncture Draw Fee 12:05:39 CDT CPT-34805 Venipuncture Draw Fee 12:49:12 CDT CPT-62486 Venipuncture Draw Fee 12:37:18 CDT CPT-90010 Venipuncture Draw Fee 10:57:11 CDT CPT-71193 Venipuncture Draw Fee 13:47:40 CDT CPT-54777 Venipuncture Draw Fee 10:02:17 CDT CPT-85403 TB Tubersol 17:32:32 CDT CPT-OV Office Visit 16:21:53 CDT CPT-OV Office Visit 15:49:22 CDT CPT-OV Office Visit 17:16:31 CDT CPT-OV Office Visit 10:43:31 CDT
--- OUTSIDE RECORDS SUMMARY | 2019-02-09 13:09 | XMS REPORT ---
Author Author [facility] YUDITH Rivera Organization [facility] Address [address] [id number] Phone [phone] Care Team Providers Care Munitions Handler Supervisor Name Role Phone OSITO BENAVIDEZ MD PP [phone] Summary purpose TRANSITION OF CARE AUTO GENERATION [...] tests and/or laboratory data RESULTS Radiology Results [id number]:00 CT ABD/PEL W CONTRAST PACs Image DATE OF EXAM: Dec 17 2013 [id number] ABD/PELV W CON TRAST : RADIOLOGY REPORT DATE OF SERVICE: 12/17/13 HISTORY: Patient has colon cancer, this is a followup study. CT ABDOMEN AND PELVIS WITH CONTRAST 0925 HOURS Images were obtained from diaphragms to symphysis pubis. Patient received 50 cc of Isovue-300 contrast in travenously. Dilute oral barium was given to opacify bowel. There are scattered tiny cysts in the li bushra on chronic basis. Otherwise, liver is homogeneous in density. Gallbla dder has been removed. There is no biliary ductal dilatation. Spleen jonh ears normal. The stomach, pancreas, and adrenal glands are normal. No aneurysm of aorta is seen. There is benign cyst anteriorly involvin g the right kidney. Small cyst is seen at several sites in the left kid santiago and additional small cyst is present in the right kidney laterally. T here is no hydronephrosis or solid mass in either kidney. Along the a nterior superior aspect of the urinary bladder, there is questionable m ild thickening of the wall. This is identical to study 09/21/2013. This is subtle. Clinical correlation needed. Bowel appears unremarkable with previous right hemicolectomy. There is no ascites or mesenteric mass. No adenopathy is seen in the abdomen or pelvis. IMPRESSION: Suggestion of mild thickenin g of the anterior superior aspect of the urinary bladder wall uncha nged from 09/21/2013. Benign renal and hepatic cysts. Otherwise negat cash for metastatic disease. DO SAILAJA Ponce/dwight 12/17/2013 09:40:12/08 09:52:36 cc:Dr. Shandra Benavidez This document has been electronically Signed by: On: DATE OF EXAM: Dec 17 2013 [id number] ABD/PELV W CON TRAST : RADIOLOGY REPORT DATE OF SERVICE: 12/17/13 HISTORY: Patient has colon cancer, this is a followup study. CT ABDOMEN AND PELVIS WITH CONTRAST 0925 HOURS Images were obtained from diaphragms to symphysis pubis. Patient received 50 cc of Isovue-300 contrast in travenously. Dilute oral barium was given to opacify bowel. There are scattered tiny cysts in the li bushra on chronic basis. Otherwise, liver is homogeneous in density. Gallbla dder has been removed. There is no biliary ductal dilatation. Spleen jonh ears normal. The stomach, pancreas, and adrenal glands are normal. No aneurysm of aorta is seen. There is benign cyst anteriorly involvin g the right kidney. Small cyst is seen at several sites in the left kid santiago and additional small cyst is present in the right kidney laterally. T here is no hydronephrosis or solid mass in either kidney. Along the a nterior superior aspect of the urinary bladder, there is questionable m ild thickening of the wall. This is identical to study 09/21/2013. This is subtle. Clinical correlation needed. Bowel appears unremarkable with previous right hemicolectomy. There is no ascites or mesenteric mass. No adenopathy is seen in the abdomen or pelvis. IMPRESSION: Suggestion of mild thickenin g of the anterior superior aspect of the urinary bladder wall uncha nged from 09/21/2013. Benign renal and hepatic cysts. Otherwise negat cash for metastatic disease. DO SAILAJA Ponce/dwight 12/17/2013 09:40:12/08 09:52:36 cc:Dr. Shandra Benavidez This document has been electronically Signed by: MICHAEL CAUSEY DO On: Dec 19 20133:44P Result Amended on 2013-12-19 at 15:45:37 . Previous status was [place]. CT CHEST W/CONT PACs Image DATE OF EXAM: Dec 17 2013 [id number] CHEST W CONTRA ST : RADIOLOGY REPORT DATE OF SERVICE: 12/17/13 HISTORY: Patient has colon cancer, this is a followup study. CT CHEST WITH [id number] HOURS Images were obtained from lung apices to diaphragms. Patient received 50 cc of Isovue-300 contrast intravenously. Unilateral left thyroid goiter is seen s imilar to 09/21/2013. No mediastinal, hilar or axillary adenopath y is identified. There are a few tiny calcified granulomas in lungs. No n oncalcified lung nodule is seen. There is no infiltrate in the lungs. The re is no pleural fluid. No other abnormality is seen. IMPRESSION: Left thyroid goiter. Otherwi se negative for metastatic disease. Michael Causey DO /il 12/17/2013 09:40:12/08 09:51:08 cc:Dr. Shandra Benavidez This document has been electronically Signed by: On: DATE OF EXAM: Dec 17 2013 [id number] CHEST W CONTRA ST : RADIOLOGY REPORT DATE OF SERVICE: 12/17/13 HISTORY: Patient has colon cancer, this is a followup study. CT CHEST WITH [id number] HOURS Images were obtained from lung apices to diaphragms. Patient received 50 cc of Isovue-300 contrast intravenously. Unilateral left thyroid goiter is seen s imilar to 09/21/2013. No mediastinal, hilar or axillary adenopath y is identified. There are a few tiny calcified granulomas in lungs. No n oncalcified lung nodule is seen. There is no infiltrate in the lungs. The re is no pleural fluid. No other abnormality is seen. IMPRESSION: Left thyroid goiter. Otherwi se negative for metastatic disease. Michael Causey DO /il 12/17/2013 09:40:12/08 09:51:08 cc:Dr. Shandra Benavidez This document has been electronically Signed by: MICHAEL CAUSEY DO On: Dec 19 20133:44P Result Amended on 2013-12-19 at 15:45:34 . Previous status was [place]. History of procedures Procedure Code Code Type Description Date Performed Performing Physician Q9967 CPT-4 LOCM 300-399MG/ML IODINE,1ML 12-17-2013 SHANDRA NABBOUT 25664 CPT-4 CT THORAX W/DYE 12-17-2013 SHANDRA NAB BOUT 37260 CPT-4 CT ABDOMEN&PELVIS W/CONTRAST 12-17-2013 SHANDRA NABBOUT J1642 CPT-4 INJ HEPARIN SODIUM PER 10 U 12-17-2013 SHANDRA NABBOUT Functional status No functional or [...]
--- OUTSIDE RECORDS SUMMARY | 2019-02-09 13:09 | XMS REPORT ---
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 Previous status was [place]. CT CHEST W/CONT PACs Image DATE OF EXAM: Dec 17 2013 [id number] CHEST W CONTRA ST : RADIOLOGY REPORT DATE OF SERVICE: 12/17/13 HISTORY: Patient has colon cancer, this is a followup study. CT CHEST WITH [id number] HOURS Images were obtained from lung apices [...] negative for metastatic disease. Michael Causey DO /ok 12/17/2013 09:40:12/08 09:51:08 cc:Dr. Shandra Benavidez This document has been electronically Signed by: On: DATE OF EXAM: Dec 17 2013 [id number] CHEST W CONTRA ST : RADIOLOGY REPORT DATE OF SERVICE: 12/17/13 HISTORY: Patient has colon cancer, this is a followup study. CT CHEST WITH [id number] HOURS Images were obtained from lung apices [...] negative for metastatic disease. Michael Causey DO /ok 12/17/2013 09:40:12/08 09:51:08 cc:Dr. Shandra Benavidez This document has been electronically Signed by: MICHAEL CAUSEY DO On: Dec 19 20133:44P Result Amended on 2013-12-19 at 15:45:34 . Previous status was [place]. History of procedures Procedure Code Code Type Description Date Performed Performing Physician Q9967 CPT-4 LOCM 300-399MG/ML IODINE,1ML 12-17-2013 SHANDRA NABBOUT 83623 CPT-4 CT THORAX W/DYE 12-17-2013 SHANDRA NAB BOUT 27768 CPT-4 CT ABDOMEN&PELVIS W/CONTRAST 12-17-2013 SHANDRA NABBOUT [...]
--- OUTSIDE RECORDS SUMMARY | 2019-02-09 13:09 | XMS REPORT | Clinical Summary ---
Author Author Renaldo, Florecita Munoz Organization [facility] Address Unknown Phone Allergies, Adverse Reactions, Alerts [...] reflux Health maintenance exam V70.0 Resolved Adolfo aYtes MD Routine general medical examination at a [...] cohn MD PhD UNSPECIFIED VENOUS INSUFFICIENCY ICD-459.81 [place] ctive Adam Yates MD ADENOCARCINOMA, ASCENDING COLON ICD-153.6 Inac tive Hope Benavidez MD PhD Hyperkalemia ICD-276.7 Inactive Hope Benavidez MD PhD Health maintenance exam ICD-V70.0 Bam Yates MD Medication List Medication Instructions Start Date Stop Date Generic Name [facility] Status Provider Patient Instruction PROZAC 20 MG CAPS 1 q d FLUOXETINE HCL 97517 869197 No Longer Active Hope Benavidez MD PhD Active INNOPRAN XL 120 MG [id number] Take one by mouth daily PROPRANOLOL HCL SR BEADS 73350600628 Active Hope Benavidez MD PhD Active POTASSIUM CHLORIDE 20 MEQ PACK by mouth twice a day prn POTASSIUM CHLORIDE 93869451912 Active Adam Yates MD Activ e CYCLOBENZAPRINE HCL 10 MG TABS 1 tablet by mouth three times daily as needed for headaches CYCLOBENZAPRINE HCL 65591978723 Active Selena Yates MD Active SIMVASTATIN 40 MG TABS 1 qd SIMVASTATIN 004 64978236 No Longer Active Adam Yates MD Active MELOXICAM 15 MG TABS 1 qd MELOXICAM 6227296 0981 No Longer Active Adam Yates MD Active ATENOLOL 50 MG TABS 1/2 tab q other day ATENOLOL 05359701970 Active Hope Benavidez MD PhD Active OMEPRAZOLE 20 MG CPDR 1 tablet by mouth daily for GERD OMEPRAZOLE 09756690275 Active Hope Benavidez MD PhD Active IMODIUM A-D 2 MG TABS 2 onset at diarrhea and prn. LOPERAMIDE HCL 15978444196 Active Hope Benavidez MD PhD Active PHENADOZ 25 MG SUPP 1 every 4 hrs. PRN PROMETHAZINE HCL 27650296146 Active Hope Benavidez MD PhD Active PROMETHAZINE HCL 25 MG TABS 1 Q. 4 hr. PRN PROMETH AZINE HCL 89648742000 Active Hope Benavidez MD PhD Active EXCEDRIN EXTRA STRENGTH 250-250-65 MG TABS 1-2 q6h PRN headache 201 04/16/21 [id number] 84470838106 Active Hope Benavidez MD PhD Active ZOFRAN 4 MG TABS 1 q 6 hr prn ONDANSETRON HCL 9821645 7002 Active Fay Alberts Active FLAGYL 500 MG TABS 1 qid METRONIDAZOLE 17363 318633 No Longer Active Adam Yates MD Active LEVAQUIN 750 MG TABS 1 qd LEVOFLOXACIN 5486 0551566 No Longer Active Adam Yates MD Active DYAZIDE 37.5-25 MG CAPS 1 qd TRIAMTERENE-HCTZ 5886 2147475 Active Hope Benavidez MD PhD Active ADULT ASPIRIN LOW STRENGTH 81 MG TBDP 1 qd A SPIRIN 87239665044 Active Hope Benavidez MD PhD Active LEVAQUIN 750 MG TABS 1 qd LEVAQUIN 750 MG T ABS 805420 LEVOFLOXACIN Inactive FLAGYL 500 MG TABS 1 qid FLAGYL 500 MG TABS 898651 METRONIDAZOLE Inactive MELOXICAM 15 MG TABS 1 qd MELOXICAM 15 MG T ABS 007165 MELOXICAM Inactive SIMVASTATIN 40 MG TABS 1 qd SIMVASTATIN 40 MG TABS 016872 SIMVASTATIN Inactive PROZAC 20 MG CAPS 1 [...] - Chem istry sodium, serum 137 mmol/L 510-436 3678/11/01 potassium, serum 3.7 mmol/L 3.5-5.2 chloride, serum 100 mmol/L 98-107 carbon dioxide, venous blood 31.8 mmol/L 21.0-32 .0 blood glucose 98 mg/dL 65-110 calcium, serum 8.6 mg/dL 8.5-10.1 urea nitrogen, blood 23 mg/dL 7-18 creatinine, serum 1.50 mg/dL 0.60-1.30 sodium, serum 136 mmol/L 739-303 5336/05/02 potassium, serum 4.1 mmol/L 3.5-5.2 chloride, serum [...] 11 .6-14.8 platelet count 133 10^3/MM^3 10*3/mm3 188-198 9833/01/17 leukocyte count, blood 3.1 10^3/MM^3 10*3/mm3 4.6-10.2 [...] 11 .6-14.8 platelet count 22 10^3/MM^3 10*3/mm3 507-440 0008/11/19 leukocyte count, blood 10.4 10^3/MM^3 10*3/mm3 4.6-10.2 [...] Verified By Repeat Analysis 10^3/mm ^3 10*3/mm3 592-274 0136/12/10 leukocyte count, blood 7.8 10^3/MM^3 10*3/mm3 4.6-10.2 [...] Panel - Chemistry sodium, serum 139 mmol/L 368-264 1738/12/03 potassium, serum 3.7 mmol/L 3.5-5.2 chloride, serum [...] 0.40 mg/dL 0.00-1.00 sodium, serum 137 mmol/L 381-550 6689/10/01 potassium, serum 3.5 mmol/L 3.5-5.2 chloride, serum [...] 0.60 mg/dL 0.00-1.00 sodium, serum 136 mmol/L 567-400 8880/10/08 potassium, serum 3.1 mmol/L 3.5-5.2 chloride, serum [...] 0.60 mg/dL 0.00-1.00 sodium, serum 139 mmol/L 448-401 1727/10/17 potassium, serum 3.1 mmol/L 3.5-5.2 chloride, serum [...] 0.30 mg/dL 0.00-1.00 sodium, serum 139 mmol/L 629-285 3059/01/21 potassium, serum 3.4 mmol/L 3.5-5.2 chloride, serum [...] 0.40 mg/dL 0.00-1.00 sodium, serum 138 mmol/L 085-444 8486/01/28 potassium, serum 3.2 mmol/L 3.5-5.2 chloride, serum [...] 0.40 mg/dL 0.00-1.00 sodium, serum 140 mmol/L 363-579 5294/02/04 potassium, serum 3.6 mmol/L 3.5-5.2 chloride, serum [...] 0.70 mg/dL 0.00-1.00 sodium, serum 142 mmol/L 382-662 5092/01/03 potassium, serum 3.4 mmol/L 3.5-5.2 chloride, serum [...] 0.50 mg/dL 0.00-1.00 sodium, serum 140 mmol/L 353-684 0056/01/06 potassium, serum 3.4 mmol/L 3.5-5.2 chloride, serum [...] 0.40 mg/dL 0.00-1.00 sodium, serum 136 mmol/L 817-388 8538/04/03 potassium, serum 3.7 mmol/L 3.5-5.2 chloride, serum [...] 0.40 mg/dL 0.00-1.00 sodium, serum 136 mmol/L 973-278 1924/02/11 potassium, serum 3.1 mmol/L 3.5-5.2 chloride, serum [...] 0.50 mg/dL 0.00-1.00 sodium, serum 139 mmol/L 178-363 9530/02/18 potassium, serum 3.6 mmol/L 3.5-5.2 chloride, serum [...] 11 .6-14.8 platelet count 246 10^3/MM^3 10*3/mm3 231-777 7572/02/18 leukocyte count, blood 4.0 10^3/MM^3 10*3/mm3 4.6-10.2 [...] 11 .6-14.8 platelet count 134 10^3/MM^3 10*3/mm3 142-370 8604/01/03 leukocyte count, blood 8.1 10^3/MM^3 10*3/mm3 4.6-10.2 [...] 11 .6-14.8 platelet count 96 10^3/MM^3 10*3/mm3 706-067 0755/01/06 leukocyte count, blood 7.6 10^3/MM^3 10*3/mm3 4.6-10.2 [...] 11 .6-14.8 platelet count 132 10^3/MM^3 10*3/mm3 023-068 6261/02/11 leukocyte count, blood 4.8 10^3/MM^3 10*3/mm3 4.6-10.2 [...] 11 .6-14.8 platelet count 102 10^3/MM^3 10*3/mm3 656-629 6035/02/04 leukocyte count, blood 3.6 10^3/MM^3 10*3/mm3 4.6-10.2 [...] 11 .6-14.8 platelet count 70 10^3/MM^3 10*3/mm3 553-177 6184/01/28 leukocyte count, blood 4.2 10^3/MM^3 10*3/mm3 4.6-10.2 [...] 11 .6-14.8 platelet count 73 10^3/MM^3 10*3/mm3 257-478 5321/01/21 leukocyte count, blood 4.9 10^3/MM^3 10*3/mm3 4.6-10.2 [...] .6-14.8 platelet count 38 recounted 10^3/mm^3 10*3/mm3 423-856 0001/10/08 leukocyte count, blood 2.9 10^3/MM^3 10*3/mm3 4.6-10.2 [...] 11 .6-14.8 platelet count 229 10^3/MM^3 10*3/mm3 295-974 3331/10/17 leukocyte count, blood 12.0 10^3/MM^3 10*3/mm3 4.6-10.2 [...] 11 .6-14.8 platelet count 232 10^3/MM^3 10*3/mm3 955-903 1756/10/01 leukocyte count, blood 8.3 10^3/MM^3 10*3/mm3 4.6-10.2 [...] 11 .6-14.8 platelet count 378 10^3/MM^3 10*3/mm3 932-478 5701/12/03 leukocyte count, blood 8.2 10^3/MM^3 10*3/mm3 4.6-10.2 [...] Diff/Morphology - Chemistry sodium, serum 141 mmol/L 102-198 4648/11/25 potassium, serum 3.9 mmol/L 3.5-5.2 chloride, serum [...] 0.50 mg/dL 0.00-1.00 sodium, serum 137 mmol/L 610-073 3878/11/12 potassium, serum 3.2 mmol/L 3.5-5.2 chloride, serum [...] 0.40 mg/dL 0.00-1.00 sodium, serum 140 mmol/L 046-346 5373/12/17 potassium, serum 3.3 mmol/L 3.5-5.2 chloride, serum [...] 0.40 mg/dL 0.00-1.00 sodium, serum 138 mmol/L 330-076 1210/12/24 potassium, serum 3.7 mmol/L 3.5-5.2 chloride, serum [...] 0.50 mg/dL 0.00-1.00 sodium, serum 138 mmol/L 528-548 7592/11/05 potassium, serum 3.9 mmol/L 3.5-5.2 chloride, serum [...] 0.40 mg/dL 0.00-1.00 sodium, serum 135 mmol/L 850-871 8644/10/22 potassium, serum 3.0 mmol/L 3.5-5.2 chloride, serum [...] 0.50 mg/dL 0.00-1.00 sodium, serum 128 mmol/L 578-655 4980/10/29 potassium, serum 2.6 mmol/L 3.5-5.2 chloride, serum [...] 0.50 mg/dL 0.00-1.00 sodium, serum 141 mmol/L 564-223 0846/01/14 potassium, serum 3.9 mmol/L 3.5-5.2 chloride, serum [...] 11 .6-14.8 platelet count 22 10^3/MM^3 10*3/mm3 605-170 6022/10/22 leukocyte count, blood 14.7 10^3/MM^3 10*3/mm3 4.6-10.2 [...] 11 .6-14.8 platelet count 428 10^3/MM^3 10*3/mm3 037-264 0702/10/29 leukocyte count, blood 26.3 10^3/MM^3 10*3/mm3 4.6-10.2 [...] 11 .6-14.8 platelet count 268 10^3/MM^3 10*3/mm3 108-298 0542/11/12 leukocyte count, blood 12.1 10^3/MM^3 10*3/mm3 4.6-10.2 [...] 11 .6-14.8 platelet count 157 10^3/MM^3 10*3/mm3 771-762 7313/11/05 leukocyte count, blood 16.4 10^3/MM^3 10*3/mm3 4.6-10.2 [...] 11 .6-14.8 platelet count 215 10^3/MM^3 10*3/mm3 148-784 8616/12/24 leukocyte count, blood 14.0 10^3/MM^3 10*3/mm3 4.6-10.2 [...] 11 .6-14.8 platelet count 66 10^3/MM^3 10*3/mm3 612-591 5675/12/17 leukocyte count, blood 18.6 10^3/MM^3 10*3/mm3 4.6-10.2 [...] 11 .6-14.8 platelet count 75 10^3/MM^3 10*3/mm3 574-680 0306/11/25 leukocyte count, blood 21.1 10^3/MM^3 10*3/mm3 4.6-10.2 [...] 11 .6-14.8 platelet count 413 10^3/MM^3 10*3/mm3 742-435 8083/01/16 leukocyte count, blood 3.6 10^3/MM^3 10*3/mm3 4.6-10.2 [...] - Chem istry sodium, serum 141 mmol/L 466-063 3080/11/19 potassium, serum 3.9 mmol/L 3.5-5.2 chloride, serum [...] 0.50 mg/dL 0.00-1.00 sodium, serum 142 mmol/L 479-138 7544/12/10 potassium, serum 3.9 mmol/L 3.5-5.2 chloride, serum [...] Diff/Morphology - Chemistry sodium, serum 142 mmol/L 922-180 4383/12/31 potassium, serum 3.6 mmol/L 3.5-5.2 chloride, serum [...] 3.5-5.2 Encounters Code Encounter Date Provider Facility CPT-50450 Level 3 New Patient 01:46:11 [facility] Hope landers MD PhD [facility] Procedures Code Procedure Name Date Entry Date Standard Desc ription CPT-29795 Postop F/U Visit 15:21:02 CDT CPT-[facility] Transitional Care Mgmt-High 07:52:27 CDT 20 20/06/01 CPT-29299 Venipuncture Draw Fee 13:51:18 CDT CPT-14701 Venipuncture Draw Fee 10:14:55 [facility] CPT-82015 Venipuncture Draw Fee 13:39:45 [facility] CPT-OV Office Visit 15:11:22 [facility] CPT-90429 Venipuncture Draw Fee 09:20:49 [facility] CPT-73582 Venipuncture Draw Fee 16:52:15 [facility] CPT-13213 Venipuncture Draw Fee 10:37:24 [facility] CPT-90070 Venipuncture Draw Fee 08:21:21 [facility] CPT-17693 Venipuncture Draw Fee 08:30:20 [facility] CPT-59759 Venipuncture Draw Fee 14:53:21 [facility] CPT-36587 Venipuncture Draw Fee 09:40:56 [facility] CPT-70647 Venipuncture Draw Fee 10:30:47 [facility] CPT-58656 Venipuncture Draw Fee 10:46:17 [facility] CPT-28075 Venipuncture Draw Fee 11:12:45 [facility] CPT-81904 Venipuncture Draw Fee 09:53:33 [facility] CPT-40617 Venipuncture Draw Fee 11:53:51 [facility] CPT-15319 Venipuncture Draw Fee 10:33:50 [facility] CPT-00704 Venipuncture Draw Fee 10:05:01 [facility] CPT-77067 Venipuncture Draw Fee 14:32:52 [facility] CPT-96292 Venipuncture Draw Fee 09:46:13 [facility] CPT-87306 Venipuncture Draw Fee 11:34:27 [facility] CPT-48237 Venipuncture Draw Fee 13:17:16 [facility] CPT-61325 Venipuncture Draw Fee 12:05:39 CDT CPT-95058 Venipuncture Draw Fee 12:49:12 CDT CPT-29138 Venipuncture Draw Fee 12:37:18 CDT CPT-02079 Venipuncture Draw Fee 10:57:11 CDT CPT-39206 Venipuncture Draw Fee 13:47:40 CDT CPT-13544 Venipuncture Draw Fee 10:02:17 CDT CPT-95876 TB Tubersol 17:32:32 CDT CPT-OV Office Visit 16:21:53 CDT CPT-OV Office Visit 15:49:22 CDT CPT-OV Office Visit 17:16:31 CDT CPT-OV Office Visit 10:43:31 CDT
--- OUTSIDE RECORDS SUMMARY | 2019-02-09 13:10 | XMS REPORT | Clinical Summary ---
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 ADENOCARCINOMA, COLON, CECUM ICD-153.4 Dick Yates MD ABDOMINAL PAIN, GENERALIZED ICD-789.07 Inactive Hope Benavidez MD PhD FEVER UNSPECIFIED ICD-780.60 Inactive Hope cohn MD PhD UNSPECIFIED VENOUS INSUFFICIENCY ICD-459.81 [place] ctive Adam Yates MD ADENOCARCINOMA, ASCENDING COLON [...] 1 injection every 2 weeks 01/09 CYANOCOBALAMIN 33360383501 Active Laura Elder Active VITAMIN D3 4000 IU 1 tab 3 times daily VITAMIN D3 400 0 IU Active Hope Benavidez MD PhD Active BACTRIM DS 800-160 MG TABS 1 pill by mouth twice daily, for UTI SULFAMETHOXAZOLE-TRIMETHOPRIM 31334139986 No Longer Active A attila Benavidez MD PhD Active PROLIA 60 MG/ML SOLN 1 shot every 6 months for osteoprosis DENOSUMAB 35242508193 Active Hope Benavidez MD PhD Active CALCIUM + D + K 750-500-40 MG-UNT-MCG TABS 1 tab by mouth tw ice daily CALCIUM-VITAMIN D-VITAMIN K 97911499831 Active Hope landers MD PhD Active DAILY VALUE MULTIVITAMIN TABS 1 tab by mouth twice daily MULTIPLE VITAMIN 47425824827 Active Hope Benavidez MD PhD Active FISH OIL 306 MG CAPS 1 tab by mouth three times daily OMEGA-3 FATTY ACIDS 05223954910 Active Hope Benavidez MD PhD Active LUTEIN 10 MG TABS 1 tab daily LUTEIN 42979598189 Act cash Hope Benavidez MD PhD Active FLORANEX PACK 1 pack three times daily, for bowel health LACTOBACILLUS 55419496095 Active Hope Benavidez MD PhD Active LOMOTIL 2.5-0.025 MG TABS 1 tab by mouth prn DIPHENOXYLATE-ATROPINE 26856463672 Active Hope Benavidez MD PhD Active TRIAMTERENE-HCTZ 37.5-25 MG TABS 1 tab by mouth daily TRIAMTERENE-HCTZ 02493940169 Active Hope Benavidez MD PhD Acti ve IRON 325 (65 FE) MG TABS 1 tab daily FERROUS SULF ATE 05487463078 Active Hope Benavidez MD PhD Active MAGNESIUM GLUCONATE 250 MG TABS 1 tab tid MAGN ESIUM GLUCONATE 96646747627 Active Adam Yates MD Active ATENOLOL 50 MG TABS 1/2 tab q other day m-w-f ATE NOLOL 44308622290 Active Hope Benavidez MD PhD Active PROPRANOLOL HCL 80 MG TABS 1 tab tue. and thur. PROPRANOLOL HCL 17760768417 Active Adam Yates MD Active CYCLOBENZAPRINE HCL 10 MG TABS 1 tablet by mouth three times daily as needed for headaches CYCLOBENZAPRINE HCL 31384350075 No Longe r Active Adam Yates MD Active OMEPRAZOLE 20 MG CPDR 1 tablet by mouth daily for GERD OMEPRAZOLE 05688356134 No Longer Active Adam Yates MD A ctive ZOFRAN 8 MG TABS 1 tab by mouth every 12 hours prn 201 05/16/09 ONDANSETRON HCL 91252469058 No Longer Active Adam Yates MD Active PHENADOZ 25 MG SUPP 1 every 4 hrs. PRN PROMETHA ZINE HCL 02160537568 No Longer Active Adam Yates MD Active POTASSIUM CHLORIDE 20 MEQ PACK by mouth twice a day prn POTASSIUM CHLORIDE 40944462071 No Longer Active Adam Yates MD Active PROMETHAZINE HCL 25 MG TABS 1 Q. 4 hr. PRN PROM ETHAZINE HCL 58017940564 No Longer Active Adam Yates MD Active INNOPRAN XL 120 MG [id number]-ING Take one by mouth daily 2 PROPRANOLOL HCL SR BEADS 67533419568 No Longer Active Adam Yates MD A ctive FLAGYL 500 MG TABS 1 pill by mouth three times daily, for diarrh ea METRONIDAZOLE 35624150523 No Longer Active Hope Benavidez MD PhD Active DYAZIDE 37.5-25 MG CAPS 1 qd TRIAMTERENE-HC TZ 93714035772 No Longer Active Hope Benavidez MD PhD Active PROZAC 20 MG CAPS 1 q d FLUOXETINE HCL 83327 360720 No Longer Active Hope Benavidez MD PhD Active SIMVASTATIN 40 MG TABS 1 qd SIMVASTATIN 004 66537599 No Longer Active Adam Yates MD Active MELOXICAM 15 MG TABS 1 qd MELOXICAM 9724885 7606 No Longer Active Adam Yates MD Active IMODIUM A-D 2 MG TABS 2 onset at diarrhea and prn. LOPERAMIDE HCL 01681673878 Active Hope Benavidez MD PhD Active EXCEDRIN EXTRA STRENGTH 250-250-65 MG TABS 1-2 q6h PRN headache 201 04/16/21 [id number] 59576834874 Active Hope Benavidez MD PhD Active FLAGYL 500 MG TABS 1 qid METRONIDAZOLE 38419 998302 No Longer Active Adam Yates MD Active LEVAQUIN 750 MG TABS 1 qd LEVOFLOXACIN 5486 3501052 No Longer Active Adam Yates MD Active ADULT ASPIRIN LOW STRENGTH 81 MG TBDP 1 qd A SPIRIN 16824912502 Active Hope Benavidez MD PhD Active LEVAQUIN 750 MG TABS 1 qd LEVAQUIN 750 MG T ABS 877510 LEVOFLOXACIN Inactive FLAGYL 500 MG TABS 1 qid FLAGYL 500 MG TABS 322309 METRONIDAZOLE Inactive MELOXICAM 15 MG TABS 1 qd MELOXICAM 15 MG T ABS 768689 MELOXICAM Inactive SIMVASTATIN 40 MG TABS 1 qd SIMVASTATIN 40 MG TABS 756390 SIMVASTATIN Inactive PROZAC 20 MG CAPS 1 q d PROZAC 20 MG CAPS 31 0385 FLUOXETINE HCL Inactive DYAZIDE 37.5-25 MG CAPS 1 qd DYAZIDE 37.5 -25 MG CAPS 933335 TRIAMTERENE-HCTZ Inactive INNOPRAN XL 120 MG [id number] Take one by mouth daily 2 INNOPRAN XL 120 MG [id number] PROPRANOLOL HCL SR BEADS Inactive PROMETHAZINE HCL 25 MG TABS 1 Q. 4 hr. PRN PROMETHAZINE HCL 25 MG TABS 196166 PROMETHAZINE HCL Inactive POTASSIUM CHLORIDE 20 MEQ PACK by mouth twice a day prn POTASSIUM CHLORIDE 20 MEQ PACK 090540 POTASSIUM CHLORIDE Inactive PHENADOZ 25 MG SUPP 1 every 4 hrs. PRN PHENADOZ 2 5 MG SUPP 631133 PROMETHAZINE HCL Inactive ZOFRAN 8 MG TABS 1 tab by mouth every 12 hours prn 201 05/16/09 ZOFRAN 8 MG TABS 436170 ONDANSETRON HCL Inactive OMEPRAZOLE 20 MG CPDR 1 tablet by mouth daily for GERD OMEPRAZOLE 20 MG CPDR 606191 OMEPRAZOLE Inactive CYCLOBENZAPRINE HCL 10 MG TABS 1 tablet by mouth three times daily as needed for headaches CYCLOBENZAPRINE HCL 10 MG TABS 780993 CYCLOBENZAPRINE HCL Inactive FLAGYL 500 MG TABS 1 pill by mouth three times daily, for diarrh ea FLAGYL 500 MG TABS 104012 METRONIDAZOLE Inactive BACTRIM DS 800-160 MG TABS [...] Range Description Chart Maintenance: labs added to [facility] et - Chemistry magnesium, serum 2.0 mg/dL Chart Maintenance: Outside labs entered on [facility] - Chemistry sodium, serum 139 mmol/L potassium, serum 3.9 mmol/L blood glucose 85 mg/dL creatinine, serum 1.26 mg/dL aspartate aminotransferase (SGOT), serum 33 U/L alanine aminotransferase (SGPT), serum 44 U/L alkaline phosphatase, serum 127 U/L Chart Maintenance: Outside labs entered on [facility] - Hematology leukocyte count, blood 4.6 10*3/mm3 hemoglobin, blood 13.6 g/dL platelet count 162 10*3/mm3 Lab Report: Basic Metabolic Panel - Chem istry sodium, serum 136 mmol/L 869-914 2798/05/02 potassium, serum 4.1 mmol/L 3.5-5.2 chloride, serum [...] mg/dL Lab Report: [facility]/ [facility] - Chemistry sodium, serum 137 mmol/L potassium, serum 3.8 mmol/L blood glucose 79 mg/dL creatinine, serum 1.02 mg/dL magnesium, serum 1.2 mg/dL Lab Report: CBC W/ DIFF, [facility] - Hematology leukocyte count, blood 8.7 10*3/mm3 hemoglobin, blood 10.8 g/dL platelet count 319 10*3/mm3 Lab Report: CBC W/DIFF, Comp. Metabolic Panel - Chemistry sodium, serum 138 mmol/L 797-314 5087/08/14 potassium, serum 4.0 mmol/L 3.5-5.2 chloride, serum [...] 0.40 mg/dL 0.00-1.00 sodium, serum 140 mmol/L 436-541 3560/02/04 potassium, serum 3.6 mmol/L 3.5-5.2 chloride, serum [...] 0.70 mg/dL 0.00-1.00 sodium, serum 136 mmol/L 487-899 3188/02/11 potassium, serum 3.1 mmol/L 3.5-5.2 chloride, serum [...] 0.50 mg/dL 0.00-1.00 sodium, serum 139 mmol/L 977-886 4092/02/18 potassium, serum 3.6 mmol/L 3.5-5.2 chloride, serum [...] 0.50 mg/dL 0.00-1.00 sodium, serum 136 mmol/L 050-014 7150/04/03 potassium, serum 3.7 mmol/L 3.5-5.2 chloride, serum 98 mmol/L 98-107 carbon dioxide, venous blood 29.6 mmol/L 21.0-32 .0 blood glucose 95 mg/dL 65-110 urea nitrogen, blood 22 mg/dL 7-18 creatinine, serum 1.10 mg/dL 0.60-1.30 alanine aminotransferase (SGPT), serum 12 U/L 12-78 aspartate aminotransferase (SGOT), serum 15 U/L 15-37 alkaline phosphatase, serum 105 U/L 50-136 calcium, serum 8.4 mg/dL 8.5-10.1 bilirubin, serum, total 0.40 mg/dL 0.00-1.00 Lab Report: CBC W/DIFF, Comp. Metabolic Panel - Hematology leukocyte count, blood 3.6 10^3/MM^3 [...] 11 .6-14.8 platelet count 70 10^3/MM^3 10*3/mm3 472-111 8347/04/03 leukocyte count, blood 5.6 10^3/MM^3 10*3/mm3 4.6-10.2 [...] 11 .6-14.8 platelet count 246 10^3/MM^3 10*3/mm3 156-522 2752/02/18 leukocyte count, blood 4.0 10^3/MM^3 10*3/mm3 4.6-10.2 [...] 11 .6-14.8 platelet count 134 10^3/MM^3 10*3/mm3 145-673 0300/02/11 leukocyte count, blood 4.8 10^3/MM^3 10*3/mm3 4.6-10.2 [...] 11 .6-14.8 platelet count 102 10^3/MM^3 10*3/mm3 866-681 1379/08/14 leukocyte count, blood 5.8 10^3/MM^3 10*3/mm3 4.6-10.2 [...] Panel - Chemistry cholesterol, serum 209 mg/dL 885-378 7080/09/11 triglyceride, serum, fasting 113 mg/dL 30-200 HDL [...] semiquantitative 7.0 5.0-8.5 Lab Report: VITAMIN D, 25-HYDROXY/86749, MAGNESIUM/622 - Chemistry vitamin D 25-hydroxy, serum 41 ng/mL 30-100 Encounters Code Encounter Date Provider Facility CPT-03382 Level 4 Est. Patient 19:08:42 DIRECTOR OF SCIENTIFIC RESEARCH Hope cohn MD PhD [facility] CPT-87950 Level 4 Est. Patient 20:04:51 CDT Hope cohn MD PhD [facility] CPT-51622 Level 3 New Patient 01:46:11 DIRECTOR OF SCIENT[employer]EARCH Hope landers MD PhD [facility] Procedures Code Procedure Name Date Entry Date Standard Desc ription CPT-J3420 Vitamin B12 1000mcg (Cyanocobalamin) 09:15:54 DIRECTOR OF SCIENTIFIC RESEARCH CPT-41343 Abx/Therapy Injection 09:15:54 DIRECTOR OF SCIENTIFIC RESEARCH CPT-J3420 Vitamin B12 1000mcg (Cyanocobalamin) 09:46:44 DIRECTOR OF SCIENTIFIC RESEARCH CPT-69998 Abx/Therapy Injection 09:46:44 DIRECTOR OF SCIENTIFIC RESEARCH CPT-J3420 Vitamin B12 1000mcg (Cyanocobalamin) 09:47:34 DIRECTOR [employer] SCIENT[employer]EARCH CPT-44322 Abx/Therapy Injection 09:47:34 DIRECTOR OF SCIENTIFIC RESEARCH CPT-J3420 Vitamin B12 1000mcg (Cyanocobalamin) 14:35:50 DIRECTOR OF SCIENTIFIC RESEARCH CPT-J3420 Vitamin B12 1000mcg (Cyanocobalamin) 09:25:05 DIRECTOR OF SCIENTIFIC RESEARCH CPT-05168 Abx/Therapy Injection 09:25:05 DIRECTOR OF SCIENT[employer] RESEARCH CPT-G0008 Administration of Influenza Virus Vaccine 13:36:47 CDT CPT-04705 Fluzone High-Dose Intramuscular Suspension 11/15 13:36:47 CDT CPT-J0897 Prolia 60 mg 08:50:41 CDT CPT-53702 Abx/Therapy Injection 08:50:41 CDT CPT-85164 Bone Density 12:06:12 CDT CPT-60289 Bone Density 08:54:40 CDT CPT-OV Office Visit 15:37:02 CDT CPT-26153 Postop F/U Visit 15:47:49 CDT CPT-15726 Postop F/U Visit 15:21:02 CDT [facility] Transitional Care Mgmt-High 07:52:27 CDT 20 20/06/01 CPT-73168 Venipuncture Draw Fee 13:51:18 CDT CPT-03112 Venipuncture Draw Fee 10:14:55 DIRECT[employer] OF SCI[employer]EARCH CPT-03930 Venipuncture Draw Fee 13:39:45 DIRECTOR OF SCIENT[employer]EARCH CPT-OV Office Visit 15:11:22 DIRECTOR OF SCIENT[employer] RESEARCH CPT-95032 Venipuncture Draw Fee 09:20:49 DIRECTOR OF SCIENT[employer] RESEARCH CPT-92661 Venipuncture Draw Fee 16:52:15 DIRECTOR OF SCIENT[employer] RESEARCH CPT-56428 Venipuncture Draw Fee 10:37:24 DIRECTOR OF SCIENT[employer] RESEARCH CPT-49610 Venipuncture Draw Fee 08:21:21 DIRECTOR OF SCIENT[employer] RESEARCH CPT-21209 Venipuncture Draw Fee 08:30:20 DIRECTOR OF SCI[employer] RESEARCH CPT-05519 Venipuncture Draw Fee 14:53:21 DIRECTOR OF SCIENT[employer] RESEARCH CPT-69353 Venipuncture Draw Fee 09:40:56 DIRECTOR OF SCIENT[employer] RESEARCH CPT-24810 Venipuncture Draw Fee 10:30:47 DIRECTOR OF SCI[employer] RESEARCH CPT-16027 Venipuncture Draw Fee 10:46:17 DIRECTOR OF SCIENT[employer] RESEARCH CPT-75969 Venipuncture Draw Fee 11:12:45 DIRECTOR OF SCIENT[employer] RESEARCH CPT-58226 Venipuncture Draw Fee 09:53:33 DIRECTOR OF SCIENT[employer] RESEARCH CPT-58427 Venipuncture Draw Fee 11:53:51 DIRECTOR OF SCIENT[employer] RESEARCH CPT-88624 Venipuncture Draw Fee 10:33:50 DIRECTOR OF SCI[employer] RESEARCH CPT-35201 Venipuncture Draw Fee 10:05:01 DIRECTOR OF SCIENT[employer] RESEARCH CPT-54399 Venipuncture Draw Fee 14:32:52 DIRECTOR OF SCI[employer]EARCH CPT-71213 Venipuncture Draw Fee 09:46:13 DIRECTOR OF SCI[employer] RESEARCH CPT-47066 Venipuncture Draw Fee 11:34:27 DIRECTOR OF SCIENT[employer] RESEARCH CPT-58593 Venipuncture Draw Fee 13:17:16 DIRECTOR OF [employer] CPT-31714 Venipuncture Draw Fee 12:05:39 CDT CPT-23806 Venipuncture Draw Fee 12:49:12 CDT CPT-89647 Venipuncture Draw Fee 12:37:18 CDT CPT-70705 Venipuncture Draw Fee 10:57:11 CDT CPT-33438 Venipuncture Draw Fee 13:47:40 CDT CPT-33738 Venipuncture Draw Fee 10:02:17 CDT CPT-76715 TB Tubersol 17:32:32 CDT CPT-OV Office Visit 16:21:53 CDT CPT-OV Office Visit 15:49:22 CDT CPT-OV Office Visit 17:16:31 CDT CPT-OV Office Visit 10:43:31 CDT
--- OUTSIDE RECORDS SUMMARY | 2019-02-09 13:10 | XMS REPORT | Clinical Summary ---
Author Author Florecita Macario Organization [facility] Address Unknown Phone Unavailable Allergies, [...] cohn MD PhD UNSPECIFIED VENOUS INSUFFICIENCY ICD-459.81 [place] ctive Adam Yates MD ADENOCARCINOMA, ASCENDING COLON [...] tab tue. and thur. 04/10 PROPRANOLOL HCL 54944238504 No Longer Active Hope Benavidez MD PhD A ctive IRON 325 (65 FE) MG TABS 1 every other day FERROUS SULFATE 68101652947 Active Hope Benavidez MD PhD Active VITAMIN D3 4000 IU 1 tab 3 times daily VITAMIN D3 4000 IU No Longer Active Hope Benavidez MD PhD Active CYANOCOBALAMIN 1000 MCG/ML INJ SOLN 1 injection every 2 weeks 01/09 CYANOCOBALAMIN 69655502913 Active Laura Elder Active BACTRIM DS 800-160 MG TABS 1 pill by mouth twice daily, for UTI SULFAMETHOXAZOLE-TRIMETHOPRIM 70670880444 No Longer Active A attila Benavidez MD PhD Active PROLIA 60 MG/ML SOLN 1 shot every 6 months for osteoprosis DENOSUMAB 36054158865 Active Hope Benavidez MD PhD Active CALCIUM + D + K 750-500-40 MG-UNT-MCG TABS 1 tab by mouth tw ice daily CALCIUM-VITAMIN D-VITAMIN K 42281663201 Active Hope landers MD PhD Active DAILY VALUE MULTIVITAMIN TABS 1 tab by mouth twice daily MULTIPLE VITAMIN 38503607753 Active Hope Benavidez MD PhD Active FISH OIL 306 MG CAPS 1 tab by mouth three times daily OMEGA-3 FATTY ACIDS 76065368211 Active Hope Benavidez MD PhD Active LUTEIN 10 MG TABS 1 tab daily LUTEIN 43812251556 Act cash Hope Benavidez MD PhD Active FLORANEX PACK 1 pack three times daily, for bowel health LACTOBACILLUS 28163875396 Active Hope Benavidez MD PhD Active LOMOTIL 2.5-0.025 MG TABS 1 tab by mouth prn DIPHENOXYLATE-ATROPINE 33186650671 Active Hope Benavidez MD PhD Active TRIAMTERENE-HCTZ 37.5-25 MG TABS 1 tab by mouth daily TRIAMTERENE-HCTZ 51236832422 Active Hope Benavidez MD PhD Acti ve MAGNESIUM GLUCONATE 250 MG TABS 1 tab tid MAGN ESIUM GLUCONATE 58558755978 Active Adam Yates MD Active ATENOLOL 50 MG TABS 1/2 tab q other day m-w-f ATE NOLOL 68739322569 Active Hope Benavidez MD PhD Active CYCLOBENZAPRINE HCL 10 MG TABS 1 tablet by mouth three times daily as needed for headaches CYCLOBENZAPRINE HCL 82671631441 No Longe r Active Adam Yates MD Active OMEPRAZOLE 20 MG CPDR 1 tablet by mouth daily for GERD OMEPRAZOLE 84451865560 No Longer Active Adam Yates MD A ctive ZOFRAN 8 MG TABS 1 tab by mouth every 12 hours prn 201 05/16/09 ONDANSETRON HCL 01143005434 No Longer Active Adam Yates MD Active PHENADOZ 25 MG SUPP 1 every 4 hrs. PRN PROMETHA ZINE HCL 16285237500 No Longer Active Adam Yates MD Active POTASSIUM CHLORIDE 20 MEQ PACK by mouth twice a day prn POTASSIUM CHLORIDE 36596203073 No Longer Active Adam Yates MD Active PROMETHAZINE HCL 25 MG TABS 1 Q. 4 hr. PRN PROM ETHAZINE HCL 46204435713 No Longer Active Adam Yates MD Active INNOPRAN XL 120 MG [id number] Take one by mouth daily 2 PROPRANOLOL HCL SR BEADS 92440546198 No Longer Active Adam Yates MD A ctive FLAGYL 500 MG TABS 1 pill by mouth three times daily, for diarrh ea METRONIDAZOLE 28635315856 No Longer Active Hope Benavidez MD PhD Active DYAZIDE 37.5-25 MG CAPS 1 qd TRIAMTERENE-HC TZ 77331159957 No Longer Active Hope Benavidez MD PhD Active PROZAC 20 MG CAPS 1 q d FLUOXETINE HCL 42625 624330 No Longer Active Hope Benavidez MD PhD Active SIMVASTATIN 40 MG TABS 1 qd SIMVASTATIN 004 28830651 No Longer Active Adam Yates MD Active MELOXICAM 15 MG TABS 1 qd MELOXICAM 9163003 6585 No Longer Active Adam Yates MD Active IMODIUM A-D 2 MG TABS 2 onset at diarrhea and prn. LOPERAMIDE HCL 63303048741 Active Hope Benavidez MD PhD Active EXCEDRIN EXTRA STRENGTH 250-250-65 MG TABS 1-2 q6h PRN headache 201 04/16/21 [id number] 69607877519 Active Hope Benavidez MD PhD Active FLAGYL 500 MG TABS 1 qid METRONIDAZOLE 54185 114141 No Longer Active Adam Yates MD Active LEVAQUIN 750 MG TABS 1 qd LEVOFLOXACIN 5486 2495086 No Longer Active Adam Yates MD Active ADULT ASPIRIN LOW STRENGTH 81 MG TBDP 1 qd A SPIRIN 40137582861 Active Hope Benavidez MD PhD Active LEVAQUIN 750 MG TABS 1 qd LEVAQUIN 750 MG T ABS 578121 LEVOFLOXACIN Inactive FLAGYL 500 MG TABS 1 qid FLAGYL 500 MG TABS 995355 METRONIDAZOLE Inactive MELOXICAM 15 MG TABS 1 qd MELOXICAM 15 MG T ABS 577226 MELOXICAM Inactive SIMVASTATIN 40 MG TABS 1 qd SIMVASTATIN 40 MG TABS 699532 SIMVASTATIN Inactive PROZAC 20 MG CAPS 1 q d PROZAC 20 MG CAPS 31 0385 FLUOXETINE HCL Inactive DYAZIDE 37.5-25 MG CAPS 1 qd DYAZIDE 37.5 -25 MG CAPS 813662 TRIAMTERENE-HCTZ Inactive INNOPRAN XL 120 MG [id number] Take one by mouth daily 2 INNOPRAN XL 120 MG [id number] PROPRANOLOL HCL SR BEADS Inactive PROMETHAZINE HCL 25 MG TABS 1 Q. 4 hr. PRN PROMETHAZINE HCL 25 MG TABS 456561 PROMETHAZINE HCL Inactive POTASSIUM CHLORIDE 20 MEQ PACK by mouth twice a day prn POTASSIUM CHLORIDE 20 MEQ PACK 794391 POTASSIUM CHLORIDE Inactive PHENADOZ 25 MG SUPP 1 every 4 hrs. PRN PHENADOZ 2 5 MG SUPP 013562 PROMETHAZINE HCL Inactive ZOFRAN 8 MG TABS 1 tab by mouth every 12 hours prn 201 05/16/09 ZOFRAN 8 MG TABS 505519 ONDANSETRON HCL Inactive OMEPRAZOLE 20 MG CPDR 1 tablet by mouth daily for GERD OMEPRAZOLE 20 MG CPDR 489657 OMEPRAZOLE Inactive CYCLOBENZAPRINE HCL 10 MG TABS 1 tablet by mouth three times daily as needed for headaches CYCLOBENZAPRINE HCL 10 MG TABS 797516 CYCLOBENZAPRINE HCL Inactive VITAMIN D3 4000 IU 1 tab 3 times daily VITAMIN D3 4000 IU Inactive PROPRANOLOL HCL 80 MG TABS 1 tab tue. and thur. 04/10 PROPRANOLOL HCL 80 MG TABS 796548 PROPRANOLOL HCL Inactive FLAGYL 500 MG TABS 1 pill by mouth three times daily, for diarrh ea FLAGYL 500 MG TABS 915983 METRONIDAZOLE Inactive BACTRIM DS 800-160 MG TABS [...] Range Description Chart Maintenance: labs added to [employer] et - Chemistry magnesium, serum 2.0 mg/dL Chart Maintenance: Outside labs entered on [employer] - Chemistry sodium, serum 139 mmol/L potassium, serum 3.9 mmol/L blood glucose 85 mg/dL creatinine, serum 1.26 mg/dL aspartate aminotransferase (SGOT), serum 33 U/L alanine aminotransferase (SGPT), serum 44 U/L alkaline phosphatase, serum 127 U/L Chart Maintenance: Outside labs entered on [employer] - Hematology leukocyte count, blood 4.6 10*3/mm3 hemoglobin, blood 13.6 g/dL platelet count 162 10*3/mm3 Lab Report: Basic Metabolic Panel - Chem istry sodium, serum 136 mmol/L 565-642 8155/05/02 potassium, serum 4.1 mmol/L 3.5-5.2 chloride, serum [...] 1.16 mg/dL Lab Report: [facility] - Chemistry sodium, serum 137 mmol/L potassium, serum 3.8 mmol/L blood glucose 79 mg/dL creatinine, serum 1.02 mg/dL magnesium, serum 1.2 mg/dL Lab Report: [facility] - Hematology leukocyte count, blood 8.7 10*3/mm3 hemoglobin, blood 10.8 g/dL platelet count 319 10*3/mm3 Lab Report: CBC W/DIFF, Comp. Metabolic Panel - Chemistry sodium, serum 138 mmol/L 685-061 5314/08/14 potassium, serum 4.0 mmol/L 3.5-5.2 chloride, serum [...] 0.40 mg/dL 0.00-1.00 sodium, serum 136 mmol/L 058-802 3826/04/03 potassium, serum 3.7 mmol/L 3.5-5.2 chloride, serum [...] 0.40 mg/dL 0.00-1.00 sodium, serum 145 mmol/L 710-641 4320/02/02 potassium, serum 4.2 mmol/L 3.5-5.2 chloride, serum [...] 11 .6-14.8 platelet count 155 10^3/MM^3 10*3/mm3 571-675 0464/04/03 leukocyte count, blood 5.6 10^3/MM^3 10*3/mm3 4.6-10.2 [...] 11 .6-14.8 platelet count 246 10^3/MM^3 10*3/mm3 672-791 2149/08/14 leukocyte count, blood 5.8 10^3/MM^3 10*3/mm3 4.6-10.2 [...] Panel - Chemistry cholesterol, serum 209 mg/dL 376-260 3496/09/11 triglyceride, serum, fasting 113 mg/dL 30-200 HDL [...] semiquantitative 7.0 5.0-8.5 Lab Report: VITAMIN D, 25-HYDROXY/09675, MAGNESIUM/622 - Chemistry vitamin D 25-hydroxy, serum 41 ng/mL 30-100 Encounters Code Encounter Date Provider Facility CPT-27905 Level 4 Est. 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 Patient 19:08:42 FOXING PAINTER Hope cohn MD PhD [facility] CPT-67871 Level 4 Est. Patient 20:04:51 CDT Hope cohn MD PhD [facility] CPT-99815 Level 3 New Patient 01:46:11 [employer]ING PAINTER Hope landers MD PhD [facility] Procedures Code Procedure Name Date Entry Date Standard Desc ription CPT-J3420 Vitamin B12 1000mcg (Cyanocobalamin) 09:26:20 [employer] CPT-53249 Abx/Therapy Injection 09:26:20 [employer] CPT-J3420 Vitamin B12 1000mcg (Cyanocobalamin) 09:44:40 [employer]ING PA[employer] CPT-89397 Abx/Therapy Injection 09:44:40 FOXING PAINTER CPT-J3420 Vitamin B12 1000mcg (Cyanocobalamin) 09:15:54 [employer]ING PAINTER CPT-94248 Abx/Therapy Injection 09:15:54 [employer]ING PAINTER CPT-J3420 Vitamin B12 1000mcg (Cyanocobalamin) 09:46:44 [employer]ING PAINTER CPT-27342 Abx/Therapy Injection 09:46:44 FOXING PAINTER CPT-J3420 Vitamin B12 1000mcg (Cyanocobalamin) 09:47:34 [employer]ING PA[employer] CPT-21305 Abx/Therapy Injection 09:47:34 FOXING PAINTER CPT-J3420 Vitamin B12 1000mcg (Cyanocobalamin) 14:35:50 [employer]ING PA[employer] CPT-J3420 Vitamin B12 1000mcg (Cyanocobalamin) 09:25:05 [employer] CPT-32825 Abx/Therapy Injection 09:25:05 [employer] CPT-G0008 Administration of Influenza Virus Vaccine 13:36:47 CDT CPT-13215 Fluzone High-Dose Intramuscular Suspension 11/15 13:36:47 CDT CPT-J0897 Prolia 60 mg 08:50:41 CDT CPT-88347 Abx/Therapy Injection 08:50:41 CDT CPT-87921 Bone Density 12:06:12 CDT CPT-62506 Bone Density 08:54:40 CDT CPT-OV Office Visit 15:37:02 CDT CPT-34434 Postop F/U Visit 15:47:49 CDT CPT-69292 Postop F/U Visit 15:21:02 CDT CPT-[facility] Transitional Care Mgmt-High 07:52:27 CDT 20 20/06/01 CPT-65521 Venipuncture Draw Fee 13:51:18 CDT CPT-63572 Venipuncture Draw Fee 10:14:55 [employer] CPT-06358 Venipuncture Draw Fee 13:39:45 [employer]ING PAINTER CPT-OV Office Visit 15:11:22 [employer]ING PAINTER CPT-46117 Venipuncture Draw Fee 09:20:49 [employer]ING PAINTER CPT-13824 Venipuncture Draw Fee 16:52:15 [employer]ING PAINTER CPT-31228 Venipuncture Draw Fee 10:37:24 FOXING PAINTER CPT-01244 Venipuncture Draw Fee 08:21:21 FOXING PAINTER CPT-76481 Venipuncture Draw Fee 08:30:20 FOXING PAINTER CPT-57420 Venipuncture Draw Fee 14:53:21 FOXING PAINTER CPT-19416 Venipuncture Draw Fee 09:40:56 FOXING PAINTER CPT-11587 Venipuncture Draw Fee 10:30:47 [employer]ING PAINTER CPT-65834 Venipuncture Draw Fee 10:46:17 [employer]ING PAINTER CPT-14156 Venipuncture Draw Fee 11:12:45 [employer]ING PAINTER CPT-41800 Venipuncture Draw Fee 09:53:33 [employer]ING PAINTER CPT-19595 Venipuncture Draw Fee 11:53:51 [employer]ING PAINTER CPT-10597 Venipuncture Draw Fee 10:33:50 FOXING PAINTER CPT-57111 Venipuncture Draw Fee 10:05:01 FOXING PAINTER CPT-01246 Venipuncture Draw Fee 14:32:52 [employer]ING PAINTER CPT-73477 Venipuncture Draw Fee 09:46:13 [employer]ING PAINTER CPT-24586 Venipuncture Draw Fee 11:34:27 [employer]ING PA[employer] CPT-06560 Venipuncture Draw Fee 13:17:16 FOXING PAINTER CPT-05952 Venipuncture Draw Fee 12:05:39 CDT CPT-92261 Venipuncture Draw Fee 12:49:12 CDT CPT-38800 Venipuncture Draw Fee 12:37:18 CDT CPT-79641 Venipuncture Draw Fee 10:57:11 CDT CPT-89560 Venipuncture Draw Fee 13:47:40 CDT CPT-98392 Venipuncture Draw Fee 10:02:17 CDT CPT-73753 TB Tubersol 17:32:32 CDT CPT-OV Office Visit 16:21:53 CDT CPT-OV Office Visit 15:49:22 CDT CPT-OV Office Visit 17:16:31 CDT CPT-OV Office Visit 10:43:31 CDT
--- OUTSIDE RECORDS SUMMARY | 2019-02-09 13:10 | XMS REPORT | Clinical Summary ---
Author Author Renaldo, Florecita Munoz Organization [facility] Address Unknown Phone Unavailable Allergies, Adverse Reactions, [...] RIGHT LOWER QUADRANT ICD-789.03 Inactive Kina Joshua HOME HEALTH NURSE ADENOCARCINOMA, COLON, CECUM ICD-153.4 Dick Yates [...] 1 injection every 2 weeks 01/09 CYANOCOBALAMIN 55404495982 Active Laura Elder Active VITAMIN D3 4000 IU 1 tab 3 times daily VITAMIN D3 400 0 IU Active Hope Benavidez MD PhD Active BACTRIM DS 800-160 MG TABS 1 pill by mouth twice daily, for UTI SULFAMETHOXAZOLE-TRIMETHOPRIM 09525302031 No Longer Active A attila Benavidez MD PhD Active PROLIA 60 MG/ML SOLN 1 shot every 6 months for osteoprosis DENOSUMAB 86515265809 Active Hope Benavidez MD PhD Active CALCIUM + D + K 750-500-40 MG-UNT-MCG TABS 1 tab by mouth tw ice daily CALCIUM-VITAMIN D-VITAMIN K 97321168331 Active Hope landers MD PhD Active DAILY VALUE MULTIVITAMIN TABS 1 tab by mouth twice daily MULTIPLE VITAMIN 27936395468 Active Hope Benavidez MD PhD Active FISH OIL 306 MG CAPS 1 tab by mouth three times daily OMEGA-3 FATTY ACIDS 92324646455 Active Hope Benavidez MD PhD Active LUTEIN 10 MG TABS 1 tab daily LUTEIN 39106917047 Act cash Hope Benavidez MD PhD Active FLORANEX PACK 1 pack three times daily, for bowel health LACTOBACILLUS 02092957005 Active Hope Benavidez MD PhD Active LOMOTIL 2.5-0.025 MG TABS 1 tab by mouth prn DIPHENOXYLATE-ATROPINE 49848276469 Active Hope Benavidez MD PhD Active TRIAMTERENE-HCTZ 37.5-25 MG TABS 1 tab by mouth daily TRIAMTERENE-HCTZ 38162535320 Active Hope Benavidez MD PhD Acti ve IRON 325 (65 FE) MG TABS 1 tab daily FERROUS SULF ATE 52081035312 Active Hope Benavidez MD PhD Active MAGNESIUM GLUCONATE 250 MG TABS 1 tab tid MAGN ESIUM GLUCONATE 50800974615 Active Adam Yates MD Active ATENOLOL 50 MG TABS 1/2 tab q other day m-w-f ATE NOLOL 20199113980 Active Hope Benavidez MD PhD Active PROPRANOLOL HCL 80 MG TABS 1 tab tue. and thur. PROPRANOLOL HCL 43800170264 Active Adam Yates MD Active CYCLOBENZAPRINE HCL 10 MG TABS 1 tablet by mouth three times daily as needed for headaches CYCLOBENZAPRINE HCL 48167514579 No Longe r Active Adam Yates MD Active OMEPRAZOLE 20 MG CPDR 1 tablet by mouth daily for GERD OMEPRAZOLE 15732333253 No Longer Active Adam Yates MD A ctive ZOFRAN 8 MG TABS 1 tab by mouth every 12 hours prn 201 05/16/09 ONDANSETRON HCL 82167222977 No Longer Active Adam Yates MD Active PHENADOZ 25 MG SUPP 1 every 4 hrs. PRN PROMETHA ZINE HCL 42982276926 No Longer Active Adam Yates MD Active POTASSIUM CHLORIDE 20 MEQ PACK by mouth twice a day prn POTASSIUM CHLORIDE 40676764247 No Longer Active Adam Yates MD Active PROMETHAZINE HCL 25 MG TABS 1 Q. 4 hr. PRN PROM ETHAZINE HCL 02374563461 No Longer Active Adam Yates MD Active INNOPRAN XL 120 MG [id number] Take one by mouth daily 2 PROPRANOLOL HCL SR BEADS 67351854801 No Longer Active Adam Yates MD A ctive FLAGYL 500 MG TABS 1 pill by mouth three times daily, for diarrh ea METRONIDAZOLE 29147120044 No Longer Active Hope Benavidez MD PhD Active DYAZIDE 37.5-25 MG CAPS 1 qd TRIAMTERENE-HC TZ 65627529384 No Longer Active Hope Benavidez MD PhD Active PROZAC 20 MG CAPS 1 q d FLUOXETINE HCL 19094 749025 No Longer Active Hope Benavidez MD PhD Active SIMVASTATIN 40 MG TABS 1 qd SIMVASTATIN 004 35308821 No Longer Active Adam Yates MD Active MELOXICAM 15 MG TABS 1 qd MELOXICAM 6085116 4025 No Longer Active Adam Yates MD Active IMODIUM A-D 2 MG TABS 2 onset at diarrhea and prn. LOPERAMIDE HCL 68583959272 Active Hope Benavidez MD PhD Active EXCEDRIN EXTRA STRENGTH 250-250-65 MG TABS 1-2 q6h PRN headache 201 04/16/21 [id number] 15145129022 Active Hope Benavidez MD PhD Active FLAGYL 500 MG TABS 1 qid METRONIDAZOLE 23724 218683 No Longer Active Adam Yates MD Active LEVAQUIN 750 MG TABS 1 qd LEVOFLOXACIN 5486 8913214 No Longer Active Adam Yates MD Active ADULT ASPIRIN LOW STRENGTH 81 MG TBDP 1 qd A SPIRIN 11555487381 Active Hope Benavidez MD PhD Active LEVAQUIN 750 MG TABS 1 qd LEVAQUIN 750 MG T ABS 247629 LEVOFLOXACIN Inactive FLAGYL 500 MG TABS 1 qid FLAGYL 500 MG TABS 292361 METRONIDAZOLE Inactive MELOXICAM 15 MG TABS 1 qd MELOXICAM 15 MG T ABS 090532 MELOXICAM Inactive SIMVASTATIN 40 MG TABS 1 qd SIMVASTATIN 40 MG TABS 808744 SIMVASTATIN Inactive PROZAC 20 MG CAPS 1 q d PROZAC 20 MG CAPS 31 0385 FLUOXETINE HCL Inactive DYAZIDE 37.5-25 MG CAPS 1 qd DYAZIDE 37.5 -25 MG CAPS 361164 TRIAMTERENE-HCTZ Inactive INNOPRAN XL 120 MG [id number] Take one by mouth daily 2 INNOPRAN XL 120 MG [id number] PROPRANOLOL HCL SR BEADS Inactive PROMETHAZINE HCL 25 MG TABS 1 Q. 4 hr. PRN PROMETHAZINE HCL 25 MG TABS 399352 PROMETHAZINE HCL Inactive POTASSIUM CHLORIDE 20 MEQ PACK by mouth twice a day prn POTASSIUM CHLORIDE 20 MEQ PACK 565432 POTASSIUM CHLORIDE Inactive PHENADOZ 25 MG SUPP 1 every 4 hrs. PRN PHENADOZ 2 5 MG SUPP 282438 PROMETHAZINE HCL Inactive ZOFRAN 8 MG TABS 1 tab by mouth every 12 hours prn 201 05/16/09 ZOFRAN 8 MG TABS 883186 ONDANSETRON HCL Inactive OMEPRAZOLE 20 MG CPDR 1 tablet by mouth daily for GERD OMEPRAZOLE 20 MG CPDR 154493 OMEPRAZOLE Inactive CYCLOBENZAPRINE HCL 10 MG TABS 1 tablet by mouth three times daily as needed for headaches CYCLOBENZAPRINE HCL 10 MG TABS 273866 CYCLOBENZAPRINE HCL Inactive FLAGYL 500 MG TABS 1 pill by mouth three times daily, for diarrh ea FLAGYL 500 MG TABS 862772 METRONIDAZOLE Inactive BACTRIM DS 800-160 MG TABS [...] Range Description Chart Maintenance: labs added to [employer] et - Chemistry magnesium, serum 2.0 mg/dL Chart Maintenance: Outside labs entered on [employer] - Chemistry sodium, serum 139 mmol/L potassium, serum 3.9 mmol/L blood glucose 85 mg/dL creatinine, serum 1.26 mg/dL aspartate aminotransferase (SGOT), serum 33 U/L alanine aminotransferase (SGPT), serum 44 U/L alkaline phosphatase, serum 127 U/L Chart Maintenance: Outside labs entered on [employer] - Hematology leukocyte count, blood 4.6 10*3/mm3 hemoglobin, blood 13.6 g/dL platelet count 162 10*3/mm3 Lab Report: Basic Metabolic Panel - Chem istry sodium, serum 136 mmol/L 984-102 9490/05/02 potassium, serum 4.1 mmol/L 3.5-5.2 chloride, serum [...] 1.16 mg/dL Lab Report: [facility] - Chemistry sodium, serum 137 mmol/L potassium, serum 3.8 mmol/L blood glucose 79 mg/dL creatinine, serum 1.02 mg/dL magnesium, serum 1.2 mg/dL Lab Report: CBC W/ DIFF, [facility] - Hematology leukocyte count, blood 8.7 10*3/mm3 hemoglobin, blood 10.8 g/dL platelet count 319 10*3/mm3 Lab Report: CBC W/DIFF, Comp. Metabolic Panel - Chemistry sodium, serum 138 mmol/L 441-871 6726/08/14 potassium, serum 4.0 mmol/L 3.5-5.2 chloride, serum [...] 0.40 mg/dL 0.00-1.00 sodium, serum 140 mmol/L 126-566 8610/02/04 potassium, serum 3.6 mmol/L 3.5-5.2 chloride, serum [...] 0.70 mg/dL 0.00-1.00 sodium, serum 136 mmol/L 420-161 1895/02/11 potassium, serum 3.1 mmol/L 3.5-5.2 chloride, serum [...] 0.50 mg/dL 0.00-1.00 sodium, serum 139 mmol/L 823-417 2734/02/18 potassium, serum 3.6 mmol/L 3.5-5.2 chloride, serum [...] 0.50 mg/dL 0.00-1.00 sodium, serum 136 mmol/L 702-256 4832/04/03 potassium, serum 3.7 mmol/L 3.5-5.2 chloride, serum [...] 11 .6-14.8 platelet count 70 10^3/MM^3 10*3/mm3 504-175 1012/04/03 leukocyte count, blood 5.6 10^3/MM^3 10*3/mm3 4.6-10.2 [...] 11 .6-14.8 platelet count 246 10^3/MM^3 10*3/mm3 320-133 8570/02/18 leukocyte count, blood 4.0 10^3/MM^3 10*3/mm3 4.6-10.2 [...] 11 .6-14.8 platelet count 134 10^3/MM^3 10*3/mm3 338-585 7790/02/11 leukocyte count, blood 4.8 10^3/MM^3 10*3/mm3 4.6-10.2 [...] 11 .6-14.8 platelet count 102 10^3/MM^3 10*3/mm3 519-738 1110/08/14 leukocyte count, blood 5.8 10^3/MM^3 10*3/mm3 4.6-10.2 [...] Panel - Chemistry cholesterol, serum 209 mg/dL 780-949 8090/09/11 triglyceride, serum, fasting 113 mg/dL 30-200 HDL [...] semiquantitative 7.0 5.0-8.5 Lab Report: VITAMIN D, 25-HYDROXY/10997, MAGNESIUM/622 - Chemistry vitamin D 25-hydroxy, serum 41 ng/mL 30-100 Encounters Code Encounter Date Provider Facility CPT-11448 Level 4 Est. 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 Patient 20:04:51 CDT Hope cohn MD PhD [facility] CPT-10217 Level 3 New Patient 01:46:11 STRIP MILL OPERATOR Hope landers MD PhD [facility] Procedures Code Procedure Name Date Entry Date Standard Desc ription CPT-J3420 Vitamin B12 1000mcg (Cyanocobalamin) 09:44:40 [employer] OPER[employer] CPT-69708 Abx/Therapy Injection 09:44:40 STRIP M[employer] OPER[employer] CPT-J3420 Vitamin B12 1000mcg (Cyanocobalamin) 09:15:54 STRIP MILL OPERATOR CPT-15346 Abx/Therapy Injection 09:15:54 STRIP MILL OPER[employer] CPT-J3420 Vitamin B12 1000mcg (Cyanocobalamin) 09:46:44 STRIP MILL OPERATOR CPT-81044 Abx/Therapy Injection 09:46:44 STRIP MILL OPERATOR CPT-J3420 Vitamin B12 1000mcg (Cyanocobalamin) 09:47:34 STRIP MILL OPERATOR CPT-90024 Abx/Therapy Injection 09:47:34 STRIP MILL OPERATOR CPT-J3420 Vitamin B12 1000mcg (Cyanocobalamin) 14:35:50 STRIP MILL OPERATOR CPT-J3420 Vitamin B12 1000mcg (Cyanocobalamin) 09:25:05 STRIP MILL OPERATOR CPT-80854 Abx/Therapy Injection 09:25:05 STRIP MILL OPER[employer] CPT-G0008 Administration of Influenza Virus Vaccine 13:36:47 CDT CPT-42105 Fluzone High-Dose Intramuscular Suspension 11/15 13:36:47 CDT CPT-J0897 Prolia 60 mg 08:50:41 CDT CPT-96999 Abx/Therapy Injection 08:50:41 CDT CPT-16213 Bone Density 12:06:12 CDT CPT-54913 Bone Density 08:54:40 CDT CPT-OV Office Visit 15:37:02 CDT CPT-25917 Postop F/U Visit 15:47:49 CDT CPT-01652 Postop F/U Visit 15:21:02 CDT CPT-[facility] Transitional Care Mgmt-High 07:52:27 CDT 20 14/05/02 CPT-77973 Venipuncture Draw Fee 13:51:18 CDT CPT-18940 Venipuncture Draw Fee 10:14:55 [employer] M[employer] OPER[employer] CPT-89087 Venipuncture Draw Fee 13:39:45 [employer]IP M[employer] OPER[employer] CPT-OV Office Visit 15:11:22 STRIP MILL OPERATOR CPT-24613 Venipuncture Draw Fee 09:20:49 STRIP MILL OPERATOR CPT-50612 Venipuncture Draw Fee 16:52:15 STRIP MILL OPERATOR CPT-44884 Venipuncture Draw Fee 10:37:24 STRIP MILL OPERATOR CPT-17628 Venipuncture Draw Fee 08:21:21 STRIP MILL OPERATOR CPT-46561 Venipuncture Draw Fee 08:30:20 STRIP MILL OPERATOR CPT-20801 Venipuncture Draw Fee 14:53:21 STRIP MILL OPERATOR CPT-59466 Venipuncture Draw Fee 09:40:56 STRIP MILL OPERATOR CPT-24586 Venipuncture Draw Fee 10:30:47 STRIP MILL OPERATOR CPT-13491 Venipuncture Draw Fee 10:46:17 STRIP MILL OPERATOR CPT-12007 Venipuncture Draw Fee 11:12:45 STRIP MILL OPERATOR CPT-59527 Venipuncture Draw Fee 09:53:33 STRIP MILL OPERATOR CPT-68141 Venipuncture Draw Fee 11:53:51 STRIP MILL OPERATOR CPT-19079 Venipuncture Draw Fee 10:33:50 STRIP MILL OPERATOR CPT-03246 Venipuncture Draw Fee 10:05:01 STRIP MILL OPERATOR CPT-69708 Venipuncture Draw Fee 14:32:52 STRIP MILL OPERATOR CPT-04139 Venipuncture Draw Fee 09:46:13 STRIP MILL OPERATOR CPT-13640 Venipuncture Draw Fee 11:34:27 STRIP MILL OPERATOR CPT-76023 Venipuncture Draw Fee 13:17:16 STRIP MILL OPERATOR CPT-67089 Venipuncture Draw Fee 12:05:39 CDT CPT-22667 Venipuncture Draw Fee 12:49:12 CDT CPT-38165 Venipuncture Draw Fee 12:37:18 CDT CPT-94093 Venipuncture Draw Fee 10:57:11 CDT CPT-87804 Venipuncture Draw Fee 13:47:40 CDT CPT-65908 Venipuncture Draw Fee 10:02:17 CDT CPT-78399 TB Tubersol 17:32:32 CDT CPT-OV Office Visit 16:21:53 CDT CPT-OV Office Visit 15:49:22 CDT CPT-OV Office Visit 17:16:31 CDT CPT-OV Office Visit 10:43:31 CDT
--- OUTSIDE RECORDS SUMMARY | 2019-02-09 13:10 | XMS REPORT | Clinical Summary ---
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 ADENOCARCINOMA, COLON, CECUM ICD-153.4 Dick Yates [...] 1 injection every 2 weeks 01/09 CYANOCOBALAMIN 70377197910 Active Laura Elder Active VITAMIN D3 4000 IU 1 tab 3 times daily VITAMIN D3 400 0 IU Active Hope Benavidez MD PhD Active BACTRIM DS 800-160 MG TABS 1 pill by mouth twice daily, for UTI SULFAMETHOXAZOLE-TRIMETHOPRIM 85979780654 No Longer Active A attila Benavidez MD PhD Active PROLIA 60 MG/ML SOLN 1 shot every 6 months for osteoprosis DENOSUMAB 43705199094 Active Hope Benavidez MD PhD Active CALCIUM + D + K 750-500-40 MG-UNT-MCG TABS 1 tab by mouth tw ice daily CALCIUM-VITAMIN D-VITAMIN K 76018832765 Active Hope landers MD PhD Active DAILY VALUE MULTIVITAMIN TABS 1 tab by mouth twice daily MULTIPLE VITAMIN 36986551003 Active Hope Benavidez MD PhD Active FISH OIL 306 MG CAPS 1 tab by mouth three times daily OMEGA-3 FATTY ACIDS 11776675762 Active Hope Benavidez MD PhD Active LUTEIN 10 MG TABS 1 tab daily LUTEIN 37449747923 Act cash Hope Benavidez MD PhD Active FLORANEX PACK 1 pack three times daily, for bowel health LACTOBACILLUS 23707628116 Active Hope Benavidez MD PhD Active LOMOTIL 2.5-0.025 MG TABS 1 tab by mouth prn DIPHENOXYLATE-ATROPINE 48584375012 Active Hope Benavidez MD PhD Active TRIAMTERENE-HCTZ 37.5-25 MG TABS 1 tab by mouth daily TRIAMTERENE-HCTZ 09802994315 Active Hope Benavidez MD PhD Acti ve IRON 325 (65 FE) MG TABS 1 tab daily FERROUS SULF ATE 15476081341 Active Hope Benavidez MD PhD Active MAGNESIUM GLUCONATE 250 MG TABS 1 tab tid MAGN ESIUM GLUCONATE 63745965357 Active Adam Yates MD Active ATENOLOL 50 MG TABS 1/2 tab q other day m-w-f ATE NOLOL 05233942708 Active Hope Benavidez MD PhD Active PROPRANOLOL HCL 80 MG TABS 1 tab tue. and thur. PROPRANOLOL HCL 00108239694 Active Adam Yates MD Active CYCLOBENZAPRINE HCL 10 MG TABS 1 tablet by mouth three times daily as needed for headaches CYCLOBENZAPRINE HCL 38988699826 No Longe r Active Adam Yates MD Active OMEPRAZOLE 20 MG CPDR 1 tablet by mouth daily for GERD OMEPRAZOLE 88960986723 No Longer Active Adam Yates MD A ctive ZOFRAN 8 MG TABS 1 tab by mouth every 12 hours prn 201 05/16/09 ONDANSETRON HCL 61285750423 No Longer Active Adam Yates MD Active PHENADOZ 25 MG SUPP 1 every 4 hrs. PRN PROMETHA ZINE HCL 93038821458 No Longer Active Adam Yates MD Active POTASSIUM CHLORIDE 20 MEQ PACK by mouth twice a day prn POTASSIUM CHLORIDE 47198270238 No Longer Active Adam Yates MD Active PROMETHAZINE HCL 25 MG TABS 1 Q. 4 hr. PRN PROM ETHAZINE HCL 72836805045 No Longer Active Adam Yates MD Active INNOPRAN XL 120 MG [id number] Take one by mouth daily 2 PROPRANOLOL HCL SR BEADS 18820792364 No Longer Active Adam Yates MD A ctive FLAGYL 500 MG TABS 1 pill by mouth three times daily, for diarrh ea METRONIDAZOLE 26728325562 No Longer Active Hope Benavidez MD PhD Active DYAZIDE 37.5-25 MG CAPS 1 qd TRIAMTERENE-HC TZ 94118795518 No Longer Active Hope Benavidez MD PhD Active PROZAC 20 MG CAPS 1 q d FLUOXETINE HCL 72495 489073 No Longer Active Hope Benavidez MD PhD Active SIMVASTATIN 40 MG TABS 1 qd SIMVASTATIN 004 80151654 No Longer Active Adam Yates MD Active MELOXICAM 15 MG TABS 1 qd MELOXICAM 3965799 8414 No Longer Active Adam Yates MD Active IMODIUM A-D 2 MG TABS 2 onset at diarrhea and prn. LOPERAMIDE HCL 35997444293 Active Hope Benavidez MD PhD Active EXCEDRIN EXTRA STRENGTH 250-250-65 MG TABS 1-2 q6h PRN headache 201 04/16/21 [id number] 24151273931 Active Hope Benavidez MD PhD Active FLAGYL 500 MG TABS 1 qid METRONIDAZOLE 03097 301292 No Longer Active Adam Yates MD Active LEVAQUIN 750 MG TABS 1 qd LEVOFLOXACIN 5486 4897252 No Longer Active Adam Yates MD Active ADULT ASPIRIN LOW STRENGTH 81 MG TBDP 1 qd A SPIRIN 12224983356 Active Hope Benavidez MD PhD Active LEVAQUIN 750 MG TABS 1 qd LEVAQUIN 750 MG T ABS 525470 LEVOFLOXACIN Inactive FLAGYL 500 MG TABS 1 qid FLAGYL 500 MG TABS 431141 METRONIDAZOLE Inactive MELOXICAM 15 MG TABS 1 qd MELOXICAM 15 MG T ABS 199615 MELOXICAM Inactive SIMVASTATIN 40 MG TABS 1 qd SIMVASTATIN 40 MG TABS 028516 SIMVASTATIN Inactive PROZAC 20 MG CAPS 1 q d PROZAC 20 MG CAPS 31 0385 FLUOXETINE HCL Inactive DYAZIDE 37.5-25 MG CAPS 1 qd DYAZIDE 37.5 -25 MG CAPS 305094 TRIAMTERENE-HCTZ Inactive INNOPRAN XL 120 MG [id number] Take one by mouth daily 2 INNOPRAN XL 120 MG [id number] PROPRANOLOL HCL SR BEADS Inactive PROMETHAZINE HCL 25 MG TABS 1 Q. 4 hr. PRN PROMETHAZINE HCL 25 MG TABS 703731 PROMETHAZINE HCL Inactive POTASSIUM CHLORIDE 20 MEQ PACK by mouth twice a day prn POTASSIUM CHLORIDE 20 MEQ PACK 169693 POTASSIUM CHLORIDE Inactive PHENADOZ 25 MG SUPP 1 every 4 hrs. PRN PHENADOZ 2 5 MG SUPP 374833 PROMETHAZINE HCL Inactive ZOFRAN 8 MG TABS 1 tab by mouth every 12 hours prn 201 05/16/09 ZOFRAN 8 MG TABS 258614 ONDANSETRON HCL Inactive OMEPRAZOLE 20 MG CPDR 1 tablet by mouth daily for GERD OMEPRAZOLE 20 MG CPDR 076973 OMEPRAZOLE Inactive CYCLOBENZAPRINE HCL 10 MG TABS 1 tablet by mouth three times daily as needed for headaches CYCLOBENZAPRINE HCL 10 MG TABS 004965 CYCLOBENZAPRINE HCL Inactive FLAGYL 500 MG TABS 1 pill by mouth three times daily, for diarrh ea FLAGYL 500 MG TABS 068830 METRONIDAZOLE Inactive BACTRIM DS 800-160 MG TABS [...] U/L Chart Maintenance: Outside labs entered on [employer] - Hematology leukocyte count, blood 4.6 10*3/mm3 hemoglobin, blood 13.6 g/dL platelet count 162 10*3/mm3 Lab Report: Basic Metabolic Panel - Chem istry sodium, serum 136 mmol/L 307-035 5324/05/02 potassium, serum 4.1 mmol/L 3.5-5.2 chloride, serum [...] Panel - Chemistry sodium, serum 138 mmol/L 881-963 4711/08/14 potassium, serum 4.0 mmol/L 3.5-5.2 chloride, serum [...] 0.40 mg/dL 0.00-1.00 sodium, serum 136 mmol/L 955-018 1299/04/03 potassium, serum 3.7 mmol/L 3.5-5.2 chloride, serum [...] 0.40 mg/dL 0.00-1.00 sodium, serum 145 mmol/L 791-359 7042/02/02 potassium, serum 4.2 mmol/L 3.5-5.2 chloride, serum [...] 11 .6-14.8 platelet count 155 10^3/MM^3 10*3/mm3 961-083 3708/04/03 leukocyte count, blood 5.6 10^3/MM^3 10*3/mm3 4.6-10.2 [...] 11 .6-14.8 platelet count 246 10^3/MM^3 10*3/mm3 439-502 8815/08/14 leukocyte count, blood 5.8 10^3/MM^3 10*3/mm3 4.6-10.2 [...] Panel - Chemistry cholesterol, serum 209 mg/dL 429-825 3234/09/11 triglyceride, serum, fasting 113 mg/dL 30-200 HDL [...] semiquantitative 7.0 5.0-8.5 Lab Report: VITAMIN D, 25-HYDROXY/29905, MAGNESIUM/622 - Chemistry vitamin D 25-hydroxy, serum 41 ng/mL 30-100 Encounters Code Encounter Date Provider Facility CPT-94703 Level 4 Est. Patient 19:08:42 [employer] PL[employer] SALES CONSULTANT Hope cohn MD PhD [facility] CPT-21535 Level 4 Est. Patient 20:04:51 CDT Hope cohn MD PhD [facility] CPT-25766 Level 3 New Patient 01:46:11 [employer] SAL[employer]SULTANT Hope landers MD PhD [facility] Procedures Code Procedure Name Date Entry Date Standard Desc ription CPT-J3420 Vitamin B12 1000mcg (Cyanocobalamin) 09:26:20 [employer] SAL[employer]SULTANT CPT-88473 Abx/Therapy Injection 09:26:20 [employer] SALES [employer]SULTANT CPT-J3420 Vitamin B12 1000mcg (Cyanocobalamin) 09:44:40 [employer] SALES [employer]SULTANT CPT-59451 Abx/Therapy Injection 09:44:40 [employer] PL[employer] SALES CONSULTANT CPT-J3420 Vitamin B12 1000mcg (Cyanocobalamin) 09:15:54 [employer] SALES CONSULTANT CPT-36544 Abx/Therapy Injection 09:15:54 [employer] PL[employer] SALES CONSULTANT CPT-J3420 Vitamin B12 1000mcg (Cyanocobalamin) 09:46:44 [employer] PL[employer] SALES CONSULTANT CPT-86888 Abx/Therapy Injection 09:46:44 [employer] PL[employer] SALES CONSULTANT CPT-J3420 Vitamin B12 1000mcg (Cyanocobalamin) 09:47:34 [employer] PL[employer] SALES CONSULTANT CPT-10361 Abx/Therapy Injection 09:47:34 [employer] PL[employer] SALES CONSULTANT CPT-J3420 Vitamin B12 1000mcg (Cyanocobalamin) 14:35:50 [employer] SALES CONSULTANT CPT-J3420 Vitamin B12 1000mcg (Cyanocobalamin) 09:25:05 [employer] SALES CONSULTANT CPT-52529 Abx/Therapy Injection 09:25:05 [employer] SAL[employer]SULTANT CPT-G0008 Administration of Influenza Virus Vaccine 13:36:47 CDT CPT-26447 Fluzone High-Dose Intramuscular Suspension 11/15 13:36:47 CDT CPT-J0897 Prolia 60 mg 08:50:41 CDT CPT-54070 Abx/Therapy Injection 08:50:41 CDT CPT-88360 Bone Density 12:06:12 CDT CPT-10563 Bone Density 08:54:40 CDT CPT-OV Office Visit 15:37:02 CDT CPT-43483 Postop F/U Visit 15:47:49 CDT CPT-11746 Postop F/U Visit 15:21:02 CDT CPT-TCMH Transitional Care Mgmt-High 07:52:27 CDT 20 20/06/01 CPT-73845 Venipuncture Draw Fee 13:51:18 CDT CPT-89921 Venipuncture Draw Fee 10:14:55 [employer] SAL[employer]ULTANT CPT-30942 Venipuncture Draw Fee 13:39:45 [employer] SALES CONSULTANT CPT-OV Office Visit 15:11:22 [employer] PL[employer] SALES CONSULTANT CPT-06574 Venipuncture Draw Fee 09:20:49 [employer] PL[employer] SALES CONSULTANT CPT-11160 Venipuncture Draw Fee 16:52:15 [employer] PL[employer] SALES CONSULTANT CPT-14125 Venipuncture Draw Fee 10:37:24 [employer] PL[employer] SALES CONSULTANT CPT-17514 Venipuncture Draw Fee 08:21:21 [employer] PLAN SALES CONSULTANT CPT-30464 Venipuncture Draw Fee 08:30:20 [employer] PL[employer] SALES CONSULTANT CPT-27171 Venipuncture Draw Fee 14:53:21 [employer] PLAN SALES CONSULTANT CPT-08485 Venipuncture Draw Fee 09:40:56 [employer] SALES CONSULTANT CPT-31450 Venipuncture Draw Fee 10:30:47 [employer] PLAN SALES CONSULTANT CPT-06335 Venipuncture Draw Fee 10:46:17 [employer] PLAN SALES CONSULTANT CPT-75866 Venipuncture Draw Fee 11:12:45 [employer] PLAN SALES CONSULTANT CPT-67353 Venipuncture Draw Fee 09:53:33 [employer] PLAN SALES CONSULTANT CPT-90454 Venipuncture Draw Fee 11:53:51 [employer] PL[employer] SALES CONSULTANT CPT-75401 Venipuncture Draw Fee 10:33:50 [employer] PL[employer] SALES CONSULTANT CPT-39827 Venipuncture Draw Fee 10:05:01 [employer] PLAN SALES CONSULTANT CPT-33366 Venipuncture Draw Fee 14:32:52 [employer] PLAN SALES CONSULTANT CPT-91151 Venipuncture Draw Fee 09:46:13 [employer] PLAN SALES CONSULTANT CPT-40142 Venipuncture Draw Fee 11:34:27 [employer] PLAN SALES CONSULTANT CPT-31617 Venipuncture Draw Fee 13:17:16 [employer] SALES CONSULTANT CPT-09139 Venipuncture Draw Fee 12:05:39 CDT CPT-02126 Venipuncture Draw Fee 12:49:12 CDT CPT-28456 Venipuncture Draw Fee 12:37:18 CDT CPT-45493 Venipuncture Draw Fee 10:57:11 CDT CPT-05632 Venipuncture Draw Fee 13:47:40 CDT CPT-87961 Venipuncture Draw Fee 10:02:17 CDT CPT-12349 TB Tubersol 17:32:32 CDT CPT-OV Office Visit 16:21:53 CDT CPT-OV Office Visit 15:49:22 CDT CPT-OV Office Visit 17:16:31 CDT CPT-OV Office Visit 10:43:31 CDT
--- OUTSIDE RECORDS SUMMARY | 2019-02-09 13:11 | XMS REPORT | Clinical Summary ---
Author Author Florecita Macario Organization [facility] Address Unknown Phone Unavailable Allergies, Adverse [...] cohn MD PhD UNSPECIFIED VENOUS INSUFFICIENCY ICD-459.81 [place] ctive Adam Yates MD ADENOCARCINOMA, ASCENDING COLON [...] tab tue. and thur. 04/10 PROPRANOLOL HCL 40279691483 No Longer Active Hope Benavidez MD PhD A ctive IRON 325 (65 FE) MG TABS 1 every other day FERROUS SULFATE 89607407077 Active Hope Benavidez MD PhD Active VITAMIN D3 4000 IU 1 tab 3 times daily VITAMIN D3 4000 IU No Longer Active Hope Benavidez MD PhD Active CYANOCOBALAMIN 1000 MCG/ML INJ SOLN 1 injection every 2 weeks 01/09 CYANOCOBALAMIN 01052389000 Active Laura Elder Active BACTRIM DS 800-160 MG TABS 1 pill by mouth twice daily, for UTI SULFAMETHOXAZOLE-TRIMETHOPRIM 12722115143 No Longer Active A attila Benavidez MD PhD Active PROLIA 60 MG/ML SOLN 1 shot every 6 months for osteoprosis DENOSUMAB 76519213106 Active Hope Benavidez MD PhD Active CALCIUM + D + K 750-500-40 MG-UNT-MCG TABS 1 tab by mouth tw ice daily CALCIUM-VITAMIN D-VITAMIN K 33166709610 Active Hope landers MD PhD Active DAILY VALUE MULTIVITAMIN TABS 1 tab by mouth twice daily MULTIPLE VITAMIN 30929181307 Active Hope Benavidez MD PhD Active FISH OIL 306 MG CAPS 1 tab by mouth three times daily OMEGA-3 FATTY ACIDS 75200899174 Active Hope Benavidez MD PhD Active LUTEIN 10 MG TABS 1 tab daily LUTEIN 36347108483 Act cash Hope Benavidez MD PhD Active FLORANEX PACK 1 pack three times daily, for bowel health LACTOBACILLUS 81308175208 Active Hope Benavidez MD PhD Active LOMOTIL 2.5-0.025 MG TABS 1 tab by mouth prn DIPHENOXYLATE-ATROPINE 31372260844 Active Hope Benavidez MD PhD Active TRIAMTERENE-HCTZ 37.5-25 MG TABS 1 tab by mouth daily TRIAMTERENE-HCTZ 00493022776 Active Hope Benavidez MD PhD Acti ve MAGNESIUM GLUCONATE 250 MG TABS 1 tab tid MAGN ESIUM GLUCONATE 21414112700 Active Adam Yates MD Active ATENOLOL 50 MG TABS 1/2 tab q other day m-w-f ATE NOLOL 28280708768 Active Hope Benavidez MD PhD Active CYCLOBENZAPRINE HCL 10 MG TABS 1 tablet by mouth three times daily as needed for headaches CYCLOBENZAPRINE HCL 22656665076 No Longe r Active Adam Yates MD Active OMEPRAZOLE 20 MG CPDR 1 tablet by mouth daily for GERD OMEPRAZOLE 02593392903 No Longer Active Adam Yates MD A ctive ZOFRAN 8 MG TABS 1 tab by mouth every 12 hours prn 201 05/16/09 ONDANSETRON HCL 14607277310 No Longer Active Adam Yates MD Active PHENADOZ 25 MG SUPP 1 every 4 hrs. PRN PROMETHA ZINE HCL 41586046131 No Longer Active Adam Yates MD Active POTASSIUM CHLORIDE 20 MEQ PACK by mouth twice a day prn POTASSIUM CHLORIDE 89960238284 No Longer Active Adam Yates MD Active PROMETHAZINE HCL 25 MG TABS 1 Q. 4 hr. PRN PROM ETHAZINE HCL 11288698560 No Longer Active Adam Yates MD Active INNOPRAN XL 120 MG [id number] Take one by mouth daily 2 PROPRANOLOL HCL SR BEADS 16718230828 No Longer Active Adam Yates MD A ctive FLAGYL 500 MG TABS 1 pill by mouth three times daily, for diarrh ea METRONIDAZOLE 22492897472 No Longer Active Hope Benavidez MD PhD Active DYAZIDE 37.5-25 MG CAPS 1 qd TRIAMTERENE-HC TZ 80177143226 No Longer Active Hope Benavidez MD PhD Active PROZAC 20 MG CAPS 1 q d FLUOXETINE HCL 14711 469374 No Longer Active Hope Benavidez MD PhD Active SIMVASTATIN 40 MG TABS 1 qd SIMVASTATIN 004 87681237 No Longer Active Adam Yates MD Active MELOXICAM 15 MG TABS 1 qd MELOXICAM 1688403 0439 No Longer Active Adam Yates MD Active IMODIUM A-D 2 MG TABS 2 onset at diarrhea and prn. LOPERAMIDE HCL 73096887599 Active Hope Benavidez MD PhD Active EXCEDRIN EXTRA STRENGTH 250-250-65 MG TABS 1-2 q6h PRN headache 201 04/16/21 [id number] 19310233175 Active Hope Benavidez MD PhD Active FLAGYL 500 MG TABS 1 qid METRONIDAZOLE 23120 369467 No Longer Active Adam Yates MD Active LEVAQUIN 750 MG TABS 1 qd LEVOFLOXACIN 5486 9012474 No Longer Active Adam Yates MD Active ADULT ASPIRIN LOW STRENGTH 81 MG TBDP 1 qd A SPIRIN 04735102307 Active Hope Benavidez MD PhD Active LEVAQUIN 750 MG TABS 1 qd LEVAQUIN 750 MG T ABS 716437 LEVOFLOXACIN Inactive FLAGYL 500 MG TABS 1 qid FLAGYL 500 MG TABS 674229 METRONIDAZOLE Inactive MELOXICAM 15 MG TABS 1 qd MELOXICAM 15 MG T ABS 242100 MELOXICAM Inactive SIMVASTATIN 40 MG TABS 1 qd SIMVASTATIN 40 MG TABS 470926 SIMVASTATIN Inactive PROZAC 20 MG CAPS 1 q d PROZAC 20 MG CAPS 31 0385 FLUOXETINE HCL Inactive DYAZIDE 37.5-25 MG CAPS 1 qd DYAZIDE 37.5 -25 MG CAPS 001560 TRIAMTERENE-HCTZ Inactive INNOPRAN XL 120 MG [id number] Take one by mouth daily 2 INNOPRAN XL 120 MG [id number] PROPRANOLOL HCL SR BEADS Inactive PROMETHAZINE HCL 25 MG TABS 1 Q. 4 hr. PRN PROMETHAZINE HCL 25 MG TABS 631076 PROMETHAZINE HCL Inactive POTASSIUM CHLORIDE 20 MEQ PACK by mouth twice a day prn POTASSIUM CHLORIDE 20 MEQ PACK 749839 POTASSIUM CHLORIDE Inactive PHENADOZ 25 MG SUPP 1 every 4 hrs. PRN PHENADOZ 2 5 MG SUPP 103439 PROMETHAZINE HCL Inactive ZOFRAN 8 MG TABS 1 tab by mouth every 12 hours prn 201 05/16/09 ZOFRAN 8 MG TABS 947876 ONDANSETRON HCL Inactive OMEPRAZOLE 20 MG CPDR 1 tablet by mouth daily for GERD OMEPRAZOLE 20 MG CPDR 359366 OMEPRAZOLE Inactive CYCLOBENZAPRINE HCL 10 MG TABS 1 tablet by mouth three times daily as needed for headaches CYCLOBENZAPRINE HCL 10 MG TABS 868397 CYCLOBENZAPRINE HCL Inactive VITAMIN D3 4000 IU 1 tab 3 times daily VITAMIN D3 4000 IU Inactive PROPRANOLOL HCL 80 MG TABS 1 tab tue. and thur. 04/10 PROPRANOLOL HCL 80 MG TABS 530257 PROPRANOLOL HCL Inactive FLAGYL 500 MG TABS 1 pill by mouth three times daily, for diarrh ea FLAGYL 500 MG TABS 142113 METRONIDAZOLE Inactive BACTRIM DS 800-160 MG TABS [...] Range Description Chart Maintenance: labs added to Where et - Chemistry magnesium, serum 2.0 mg/dL Chart Maintenance: Outside labs entered on [employer] - Chemistry sodium, serum 139 mmol/L potassium, serum 3.9 mmol/L blood glucose 85 mg/dL creatinine, serum 1.26 mg/dL aspartate aminotransferase (SGOT), serum 33 U/L alanine aminotransferase (SGPT), serum 44 U/L alkaline phosphatase, serum 127 U/L Chart Maintenance: Outside labs entered on [employer] - Hematology leukocyte count, blood 4.6 10*3/mm3 hemoglobin, blood 13.6 g/dL platelet count 162 10*3/mm3 Lab Report: Basic Metabolic Panel - Chem istry sodium, serum 136 mmol/L 154-313 5680/05/02 potassium, serum 4.1 mmol/L 3.5-5.2 chloride, serum [...] 1.16 mg/dL Lab Report: [facility] - Chemistry sodium, serum 137 mmol/L potassium, serum 3.8 mmol/L blood glucose 79 mg/dL creatinine, serum 1.02 mg/dL magnesium, serum 1.2 mg/dL Lab Report: [facility]/ [facility] - Hematology leukocyte count, blood 8.7 10*3/mm3 hemoglobin, blood 10.8 g/dL platelet count 319 10*3/mm3 Lab Report: CBC W/DIFF, Comp. Metabolic Panel - Chemistry sodium, serum 138 mmol/L 629-412 1233/08/14 potassium, serum 4.0 mmol/L 3.5-5.2 chloride, serum [...] 0.40 mg/dL 0.00-1.00 sodium, serum 136 mmol/L 545-405 2653/04/03 potassium, serum 3.7 mmol/L 3.5-5.2 chloride, serum [...] 0.40 mg/dL 0.00-1.00 sodium, serum 145 mmol/L 354-958 3905/02/02 potassium, serum 4.2 mmol/L 3.5-5.2 chloride, serum [...] 11 .6-14.8 platelet count 155 10^3/MM^3 10*3/mm3 298-620 2436/04/03 leukocyte count, blood 5.6 10^3/MM^3 10*3/mm3 4.6-10.2 [...] 11 .6-14.8 platelet count 246 10^3/MM^3 10*3/mm3 924-618 8478/08/14 leukocyte count, blood 5.8 10^3/MM^3 10*3/mm3 4.6-10.2 [...] Panel - Chemistry cholesterol, serum 209 mg/dL 148-340 6824/09/11 triglyceride, serum, fasting 113 mg/dL 30-200 HDL [...] semiquantitative 7.0 5.0-8.5 Lab Report: VITAMIN D, 25-HYDROXY/87043, MAGNESIUM/622 - Chemistry vitamin D 25-hydroxy, serum 41 ng/mL 30-100 Encounters Code Encounter Date Provider Facility CPT-04813 Level 4 Est. Patient 12:08:30 TYPE CUTTER Hope cohn MD PhD [facility] CPT-45871 Level 4 Est. Patient 19:08:42 TYPE CUTTER Hope cohn MD PhD [facility] CPT-94102 Level 4 Est. Patient 20:04:51 CDT Hope cohn MD PhD [facility] CPT-13602 Level 3 New Patient 01:46:11 TYPE CUTTER Hope landers MD PhD [facility] Procedures Code Procedure Name Date Entry Date Standard Desc ription CPT-J3420 Vitamin B12 1000mcg (Cyanocobalamin) 09:26:20 TYPE CUTTER CPT-11862 Abx/Therapy Injection 09:26:20 TYPE CUTTER CPT-J3420 Vitamin B12 1000mcg (Cyanocobalamin) 09:44:40 TYPE CUTTER CPT-08322 Abx/Therapy Injection 09:44:40 TYPE CUTTER CPT-J3420 Vitamin B12 1000mcg (Cyanocobalamin) 09:15:54 TYPE CUTTER CPT-49375 Abx/Therapy Injection 09:15:54 TYPE CUTTER CPT-J3420 Vitamin B12 1000mcg (Cyanocobalamin) 09:46:44 TYPE CUTTER CPT-56713 Abx/Therapy Injection 09:46:44 TYPE CUTTER CPT-J3420 Vitamin B12 1000mcg (Cyanocobalamin) 09:47:34 TYPE CUTTER CPT-94415 Abx/Therapy Injection 09:47:34 TYPE CUTTER CPT-J3420 Vitamin B12 1000mcg (Cyanocobalamin) 14:35:50 TYPE CUTTER CPT-J3420 Vitamin B12 1000mcg (Cyanocobalamin) 09:25:05 TYPE CUTTER CPT-84620 Abx/Therapy Injection 09:25:05 TYPE CUTTER CPT-G0008 Administration of Influenza Virus Vaccine 13:36:47 CDT CPT-57757 Fluzone High-Dose Intramuscular Suspension 11/15 13:36:47 CDT CPT-J0897 Prolia 60 mg 08:50:41 CDT CPT-79244 Abx/Therapy Injection 08:50:41 CDT CPT-72069 Bone Density 12:06:12 CDT CPT-31806 Bone Density 08:54:40 CDT CPT-OV Office Visit 15:37:02 CDT CPT-22033 Postop F/U Visit 15:47:49 CDT CPT-05774 Postop F/U Visit 15:21:02 CDT CPT-TCMH Transitional Care Mgmt-High 07:52:27 CDT 20 20/06/01 CPT-08913 Venipuncture Draw Fee 13:51:18 CDT CPT-35574 Venipuncture Draw Fee 10:14:55 TYPE CUTTER CPT-55831 Venipuncture Draw Fee 13:39:45 TYPE CUTTER CPT-OV Office Visit 15:11:22 TYPE CUTTER CPT-96632 Venipuncture Draw Fee 09:20:49 TYPE CUTTER CPT-93486 Venipuncture Draw Fee 16:52:15 TYPE CUTTER CPT-40219 Venipuncture Draw Fee 10:37:24 TYPE CUTTER CPT-52756 Venipuncture Draw Fee 08:21:21 TYPE CUTTER CPT-96436 Venipuncture Draw Fee 08:30:20 TYPE CUTTER CPT-39256 Venipuncture Draw Fee 14:53:21 TYPE CUTTER CPT-41665 Venipuncture Draw Fee 09:40:56 TYPE CUTTER CPT-83322 Venipuncture Draw Fee 10:30:47 TYPE CUTTER CPT-53837 Venipuncture Draw Fee 10:46:17 TYPE CUTTER CPT-64125 Venipuncture Draw Fee 11:12:45 TYPE CUTTER CPT-11627 Venipuncture Draw Fee 09:53:33 TYPE CUTTER CPT-13209 Venipuncture Draw Fee 11:53:51 TYPE CUTTER CPT-06916 Venipuncture Draw Fee 10:33:50 TYPE CUTTER CPT-60035 Venipuncture Draw Fee 10:05:01 TYPE CUTTER CPT-03299 Venipuncture Draw Fee 14:32:52 TYPE CUTTER CPT-02491 Venipuncture Draw Fee 09:46:13 TYPE CUTTER CPT-54114 Venipuncture Draw Fee 11:34:27 TYPE CUTTER CPT-95127 Venipuncture Draw Fee 13:17:16 TYPE CUTTER CPT-70066 Venipuncture Draw Fee 12:05:39 CDT CPT-14108 Venipuncture Draw Fee 12:49:12 CDT CPT-12990 Venipuncture Draw Fee 12:37:18 CDT CPT-31856 Venipuncture Draw Fee 10:57:11 CDT CPT-16449 Venipuncture Draw Fee 13:47:40 CDT CPT-14651 Venipuncture Draw Fee 10:02:17 CDT CPT-83451 TB Tubersol 17:32:32 CDT CPT-OV Office Visit 16:21:53 CDT CPT-OV Office Visit 15:49:22 CDT CPT-OV Office Visit 17:16:31 CDT CPT-OV Office Visit 10:43:31 CDT
--- OUTSIDE RECORDS SUMMARY | 2019-02-09 13:11 | XMS REPORT | Clinical Summary ---
Author Author Renaldo, Florecita Munoz Organization 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 Dick Yates MD ABDOMINAL PAIN, GENERALIZED ICD-789.07 Inactive Hope Benavidez MD PhD FEVER UNSPECIFIED ICD-780.60 Inactive Hope cohn MD PhD UNSPECIFIED VENOUS INSUFFICIENCY ICD-459.81 [place] ctive Adam Yates MD ADENOCARCINOMA, ASCENDING COLON [...] 1 injection every 2 weeks 01/09 CYANOCOBALAMIN 74104672859 Active Laura Elder Active VITAMIN D3 4000 IU 1 tab 3 times daily VITAMIN D3 400 0 IU Active Hope Benavidez MD PhD Active BACTRIM DS 800-160 MG TABS 1 pill by mouth twice daily, for UTI SULFAMETHOXAZOLE-TRIMETHOPRIM [id number] No Longer Active A attila Benavidez MD PhD Active PROLIA 60 MG/ML SOLN 1 shot every 6 months for osteoprosis DENOSUMAB 87304776834 Active Hope Benavidez MD PhD Active CALCIUM + D + K 750-500-40 MG-UNT-MCG TABS 1 tab by mouth tw ice daily CALCIUM-VITAMIN D-VITAMIN K 97665425125 Active Hope landers MD PhD Active DAILY VALUE MULTIVITAMIN TABS 1 tab by mouth twice daily MULTIPLE VITAMIN 08914468708 Active Hope Benavidez MD PhD Active FISH OIL 306 MG CAPS 1 tab by mouth three times daily OMEGA-3 FATTY ACIDS 77831740247 Active Hope Benavidez MD PhD Active LUTEIN 10 MG TABS 1 tab daily LUTEIN 93064251316 Act cash Hope Benavidez MD PhD Active FLORANEX PACK 1 pack three times daily, for bowel health LACTOBACILLUS 32480485779 Active Hope Benavidez MD PhD Active LOMOTIL 2.5-0.025 MG TABS 1 tab by mouth prn DIPHENOXYLATE-ATROPINE 36833705333 Active Hope Benavidez MD PhD Active TRIAMTERENE-HCTZ 37.5-25 MG TABS 1 tab by mouth daily TRIAMTERENE-HCTZ 14008145306 Active Hope Benavidez MD PhD Acti ve IRON 325 (65 FE) MG TABS 1 tab daily FERROUS SULF ATE 85970413729 Active Hope Benavidez MD PhD Active MAGNESIUM GLUCONATE 250 MG TABS 1 tab tid MAGN ESIUM GLUCONATE 09037406051 Active Adam Yates MD Active ATENOLOL 50 MG TABS 1/2 tab q other day m-w-f ATE NOLOL 41676406818 Active Hope Benavidez MD PhD Active PROPRANOLOL HCL 80 MG TABS 1 tab tue. and thur. PROPRANOLOL HCL 17288630642 Active Adam Yates MD Active CYCLOBENZAPRINE HCL 10 MG TABS 1 tablet by mouth three times daily as needed for headaches CYCLOBENZAPRINE HCL 15594826728 No Longe r Active Adam Yates MD Active OMEPRAZOLE 20 MG CPDR 1 tablet by mouth daily for GERD OMEPRAZOLE 12884779780 No Longer Active Adam Yates MD A ctive ZOFRAN 8 MG TABS 1 tab by mouth every 12 hours prn 201 05/16/09 ONDANSETRON HCL 62632507304 No Longer Active Adam Yates MD Active PHENADOZ 25 MG SUPP 1 every 4 hrs. PRN PROMETHA ZINE HCL 60839853623 No Longer Active Adam Yates MD Active POTASSIUM CHLORIDE 20 MEQ PACK by mouth twice a day prn POTASSIUM CHLORIDE 22422964451 No Longer Active Adam Yates MD Active PROMETHAZINE HCL 25 MG TABS 1 Q. 4 hr. PRN PROM ETHAZINE HCL 08803849456 No Longer Active Adam Yates MD Active INNOPRAN XL 120 MG [id number] Take one by mouth daily 2 PROPRANOLOL HCL SR BEADS 54679928982 No Longer Active Adam Yates MD A ctive FLAGYL 500 MG TABS 1 pill by mouth three times daily, for diarrh ea METRONIDAZOLE 40372102043 No Longer Active Hope Benavidez MD PhD Active DYAZIDE 37.5-25 MG CAPS 1 qd TRIAMTERENE-HC TZ 42736641866 No Longer Active Hope Benavidez MD PhD Active PROZAC 20 MG CAPS 1 q d FLUOXETINE HCL 59387 910478 No Longer Active Hope Benavidez MD PhD Active SIMVASTATIN 40 MG TABS 1 qd SIMVASTATIN 004 46160189 No Longer Active Adam Yates MD Active MELOXICAM 15 MG TABS 1 qd MELOXICAM 8610488 4728 No Longer Active Adam Yates MD Active IMODIUM A-D 2 MG TABS 2 onset at diarrhea and prn. LOPERAMIDE HCL 86630894077 Active Hope Benavidez MD PhD Active EXCEDRIN EXTRA STRENGTH 250-250-65 MG TABS 1-2 q6h PRN headache 201 04/16/21 CALNAHS-DCPLWIPNXEUEB-QPIEFCDH 61473247530 Active Hope Benavidez MD PhD Active FLAGYL 500 MG TABS 1 qid METRONIDAZOLE 47380 526507 No Longer Active Adam Yates MD Active LEVAQUIN 750 MG TABS 1 qd LEVOFLOXACIN 5486 7540522 No Longer Active Adam Yates MD Active ADULT ASPIRIN LOW STRENGTH 81 MG TBDP 1 qd A SPIRIN 37511861047 Active Hope Benavidez MD PhD Active LEVAQUIN 750 MG TABS 1 qd LEVAQUIN 750 MG T ABS 063284 LEVOFLOXACIN Inactive FLAGYL 500 MG TABS 1 qid FLAGYL 500 MG TABS 798649 METRONIDAZOLE Inactive MELOXICAM 15 MG TABS 1 qd MELOXICAM 15 MG T ABS 966014 MELOXICAM Inactive SIMVASTATIN 40 MG TABS 1 qd SIMVASTATIN 40 MG TABS 406082 SIMVASTATIN Inactive PROZAC 20 MG CAPS 1 q d PROZAC 20 MG CAPS 31 0385 FLUOXETINE HCL Inactive DYAZIDE 37.5-25 MG CAPS 1 qd DYAZIDE 37.5 -25 MG CAPS 248716 TRIAMTERENE-HCTZ Inactive INNOPRAN XL 120 MG [id number] Take one by mouth daily 2 INNOPRAN XL 120 MG [id number] PROPRANOLOL HCL SR BEADS Inactive PROMETHAZINE HCL 25 MG TABS 1 Q. 4 hr. PRN PROMETHAZINE HCL 25 MG TABS 001213 PROMETHAZINE HCL Inactive POTASSIUM CHLORIDE 20 MEQ PACK by mouth twice a day prn POTASSIUM CHLORIDE 20 MEQ PACK 257593 POTASSIUM CHLORIDE Inactive PHENADOZ 25 MG SUPP 1 every 4 hrs. PRN PHENADOZ 2 5 MG SUPP 120027 PROMETHAZINE HCL Inactive ZOFRAN 8 MG TABS 1 tab by mouth every 12 hours prn 201 05/16/09 ZOFRAN 8 MG TABS 823091 ONDANSETRON HCL Inactive OMEPRAZOLE 20 MG CPDR 1 tablet by mouth daily for GERD OMEPRAZOLE 20 MG CPDR 946307 OMEPRAZOLE Inactive CYCLOBENZAPRINE HCL 10 MG TABS 1 tablet by mouth three times daily as needed for headaches CYCLOBENZAPRINE HCL 10 MG TABS 444141 CYCLOBENZAPRINE HCL Inactive FLAGYL 500 MG TABS 1 pill by mouth three times daily, for diarrh ea FLAGYL 500 MG TABS 082081 METRONIDAZOLE Inactive BACTRIM DS 800-160 MG TABS [...] Range Description Chart Maintenance: labs added to [employer] [facility] - Chemistry magnesium, serum 2.0 mg/dL Chart Maintenance: Outside labs entered on [facility] - Chemistry sodium, serum 139 mmol/L potassium, serum 3.9 mmol/L blood glucose 85 mg/dL creatinine, serum 1.26 mg/dL aspartate aminotransferase (SGOT), serum 33 U/L alanine aminotransferase (SGPT), serum 44 U/L alkaline phosphatase, serum 127 U/L Chart Maintenance: Outside labs entered on [facility] - Hematology leukocyte count, blood 4.6 10*3/mm3 hemoglobin, blood 13.6 g/dL platelet count 162 10*3/mm3 Lab Report: Basic Metabolic Panel - Chem istry sodium, serum 136 mmol/L 307-546 7543/05/02 potassium, serum 4.1 mmol/L 3.5-5.2 chloride, serum [...] mg/dL Lab Report: [facility]/ [facility]FF, [facility] - Chemistry sodium, serum 137 mmol/L potassium, serum 3.8 mmol/L blood glucose 79 mg/dL creatinine, serum 1.02 mg/dL magnesium, serum 1.2 mg/dL Lab Report: CBC W/ DIFF, [facility] - Hematology leukocyte count, blood 8.7 10*3/mm3 hemoglobin, blood 10.8 g/dL platelet count 319 10*3/mm3 Lab Report: CBC W/DIFF, Comp. Metabolic Panel - Chemistry sodium, serum 138 mmol/L 538-140 4387/08/14 potassium, serum 4.0 mmol/L 3.5-5.2 chloride, serum [...] 0.40 mg/dL 0.00-1.00 sodium, serum 140 mmol/L 270-195 6463/02/04 potassium, serum 3.6 mmol/L 3.5-5.2 chloride, serum [...] 8.5-10.1 bilirubin, serum, total 0.70 mg/dL 0.00-1.00 chloride, serum 97 mmol/L 98-107 [...] 0.50 mg/dL 0.00-1.00 sodium, serum 139 mmol/L 643-322 4223/02/18 potassium, serum 3.6 mmol/L 3.5-5.2 chloride, serum [...] 0.50 mg/dL 0.00-1.00 sodium, serum 136 mmol/L 342-656 1318/02/11 potassium, serum 3.1 mmol/L 3.5-5.2 sodium, serum 136 mmol/L 397-959 1993/04/03 potassium, serum 3.7 mmol/L 3.5-5.2 chloride, serum [...] Metabolic Panel - Hematology erythrocyte (RBC) count 3.57 10^6/MM^3 10*6/mm3 4.04-5.4 8 lymphocytes as percent of blood leukocytes 19.3 % 20.5-51.1 monocytes as percent of blood leukocytes 8.5 % 1.7-9.3 neutrophils as percent of blood leukocytes 70.8 % 42.2-75.2 leukocyte count, blood 3.6 10^3/MM^3 10*3/mm3 4.6-10.2 hemoglobin, blood 11.6 g/dL 12.0-16.0 hematocrit, blood 35.2 % 36.0-46.0 mean corpuscular volume, RBC 99 fL 80-97 mean corpuscular hemoglobin, RBC 32.5 pg 27. 0-31.2 mean corpuscular hemoglobin concentration, RBC 32.9 G/DL % 31.8-35.4 red blood cell distribution width 18.5 % 11 .6-14.8 platelet count 70 10^3/MM^3 10*3/mm3 533-932 7992/04/03 leukocyte count, blood 5.6 10^3/MM^3 10*3/mm3 4.6-10.2 [...] 11 .6-14.8 platelet count 246 10^3/MM^3 10*3/mm3 128-346 3314/02/18 leukocyte count, blood 4.0 10^3/MM^3 10*3/mm3 4.6-10.2 [...] 11 .6-14.8 platelet count 134 10^3/MM^3 10*3/mm3 460-145 3039/02/11 leukocyte count, blood 4.8 10^3/MM^3 10*3/mm3 4.6-10.2 [...] 11 .6-14.8 platelet count 102 10^3/MM^3 10*3/mm3 075-998 5337/08/14 leukocyte count, blood 5.8 10^3/MM^3 10*3/mm3 4.6-10.2 [...] Panel - Chemistry cholesterol, serum 209 mg/dL 645-640 3597/09/11 triglyceride, serum, fasting 113 mg/dL 30-200 HDL [...] semiquantitative 7.0 5.0-8.5 Lab Report: VITAMIN D, 25-HYDROXY/94029, MAGNESIUM/622 - Chemistry vitamin D 25-hydroxy, serum 41 ng/mL 30-100 Encounters Code Encounter Date Provider Facility CPT-75418 Level 4 Est. Patient 19:08:42 [employer] Hope cohn MD PhD [facility] CPT-28421 Level 4 Est. Patient 20:04:51 CDT Hope cohn MD PhD [facility] CPT-59875 Level 3 New Patient 01:46:11 [employer]CH[employer]ING [employer] Hope landers MD PhD [facility] Procedures Code Procedure Name Date Entry Date Standard Desc ription CPT-J3420 Vitamin B12 1000mcg (Cyanocobalamin) 09:44:40 [employer]ING [employer] CPT-16801 Abx/Therapy Injection 09:44:40 [employer]ING [employer] CPT-J3420 Vitamin B12 1000mcg (Cyanocobalamin) 09:15:54 [employer]ERING [employer] CPT-29396 Abx/Therapy Injection 09:15:54 [employer]CH[employer] ENGINEERING [employer] CPT-J3420 Vitamin B12 1000mcg (Cyanocobalamin) 09:46:44 [employer]CH[employer] ENGINEERING [employer] CPT-08471 Abx/Therapy Injection 09:46:44 MECH[employer] ENGINEERING [employer]ER CPT-J3420 Vitamin B12 1000mcg (Cyanocobalamin) 09:47:34 MECH[employer] ENGINEERING [employer] CPT-80627 Abx/Therapy Injection 09:47:34 MECH[employer]ICAL ENGINEERING [employer]ER CPT-J3420 Vitamin B12 1000mcg (Cyanocobalamin) 14:35:50 MECH[employer]ICAL ENGINEERING [employer]ER CPT-J3420 Vitamin B12 1000mcg (Cyanocobalamin) 09:25:05 MECH[employer] ENGINEERING [employer]ER CPT-34228 Abx/Therapy Injection 09:25:05 MECH[employer] ENGINEERING [employer]ER CPT-G0008 Administration of Influenza Virus Vaccine 13:36:47 CDT CPT-42752 Fluzone High-Dose Intramuscular Suspension 11/15 13:36:47 CDT CPT-J0897 Prolia 60 mg 08:50:41 CDT CPT-30258 Abx/Therapy Injection 08:50:41 CDT CPT-47090 Bone Density 12:06:12 CDT CPT-76240 Bone Density 08:54:40 CDT CPT-OV Office Visit 15:37:02 CDT CPT-36652 Postop F/U Visit 15:47:49 CDT CPT-63202 Postop F/U Visit 15:21:02 CDT CPT-TCMH Transitional Care Mgmt-High 07:52:27 CDT 20 20/06/01 CPT-08076 Venipuncture Draw Fee 13:51:18 CDT CPT-09998 Venipuncture Draw Fee 10:14:55 [employer]ING [employer] CPT-32883 Venipuncture Draw Fee 13:39:45 [employer]CH[employer] ENGINEERING [employer]ER CPT-OV Office Visit 15:11:22 MECH[employer] ENG[employer]ERING [employer] CPT-71811 Venipuncture Draw Fee 09:20:49 MECH[employer]ICAL ENGINEERING [employer]ER CPT-33799 Venipuncture Draw Fee 16:52:15 MECH[employer]ICAL ENGINEERING [employer]URER CPT-84678 Venipuncture Draw Fee 10:37:24 MECH[employer]ICAL ENGINEERING L[employer]ER CPT-68706 Venipuncture Draw Fee 08:21:21 MECHANICAL ENGINEERING L[employer]URER CPT-53808 Venipuncture Draw Fee 08:30:20 MECHANICAL ENGINEERING L[employer]URER CPT-46252 Venipuncture Draw Fee 14:53:21 MECHANICAL ENGINEERING L[employer]URER CPT-84904 Venipuncture Draw Fee 09:40:56 MECH[employer]ICAL ENGINEERING L[employer]ER CPT-53449 Venipuncture Draw Fee 10:30:47 MECH[employer]ICAL ENGINEERING L[employer]URER CPT-68998 Venipuncture Draw Fee 10:46:17 MECHANICAL ENGINEERING L[employer]URER CPT-00130 Venipuncture Draw Fee 11:12:45 MECHANICAL ENGINEERING L[employer]URER CPT-26866 Venipuncture Draw Fee 09:53:33 MECH[employer]ICAL ENGINEERING L[employer]URER CPT-44734 Venipuncture Draw Fee 11:53:51 MECH[employer]ICAL ENGINEERING L[employer]URER CPT-64896 Venipuncture Draw Fee 10:33:50 MECH[employer]ICAL ENGINEERING L[employer]URER CPT-31819 Venipuncture Draw Fee 10:05:01 MECHANICAL ENGINEERING L[employer]URER CPT-29095 Venipuncture Draw Fee 14:32:52 MECHANICAL ENGINEERING L[employer]URER CPT-15567 Venipuncture Draw Fee 09:46:13 MECHANICAL ENGINEERING L[employer]URER CPT-68758 Venipuncture Draw Fee 11:34:27 MECH[employer]ICAL ENGINEERING L[employer]URER CPT-37723 Venipuncture Draw Fee 13:17:16 MECHANICAL ENGINEERING L[employer]URER CPT-54236 Venipuncture Draw Fee 12:05:39 CDT CPT-68838 Venipuncture Draw Fee 12:49:12 CDT CPT-78114 Venipuncture Draw Fee 12:37:18 CDT CPT-12226 Venipuncture Draw Fee 10:57:11 CDT CPT-67626 Venipuncture Draw Fee 13:47:40 CDT CPT-48652 Venipuncture Draw Fee 10:02:17 CDT CPT-14695 TB Tubersol 17:32:32 CDT CPT-OV Office Visit 16:21:53 CDT CPT-OV Office Visit 15:49:22 CDT CPT-OV Office Visit 17:16:31 CDT CPT-OV Office Visit 10:43:31 CDT
--- OUTSIDE RECORDS SUMMARY | 2019-02-09 13:12 | XMS REPORT | Clinical Summary ---
Author Author Renaldo, Florecita Munoz Organization [facility] Address Unknown Phone Unavailable Allergies, [...] status (age-related) (natural) Diarrhea 787.91 Active Hope eBnavidez MD PhD Diarrhea Osteoporosis 733.00 Active Hope [...] cohn MD PhD UNSPECIFIED VENOUS INSUFFICIENCY ICD-459.81 [place] ctive Adam Yates MD ADENOCARCINOMA, ASCENDING COLON [...] tab tue. and thur. 04/10 PROPRANOLOL HCL 32952004511 No Longer Active Hope Benavidez MD PhD A ctive IRON 325 (65 FE) MG TABS 1 every other day FERROUS SULFATE 41095427645 Active Hope Benavidez MD PhD Active VITAMIN D3 4000 IU 1 tab 3 times daily VITAMIN D3 4000 IU No Longer Active Hope Benavidez MD PhD Active CYANOCOBALAMIN 1000 MCG/ML INJ SOLN 1 injection every 2 weeks 01/09 CYANOCOBALAMIN 19313660223 Active Laura Elder Active BACTRIM DS 800-160 MG TABS 1 pill by mouth twice daily, for UTI SULFAMETHOXAZOLE-TRIMETHOPRIM 30243453329 No Longer Active A attila Benavidez MD PhD Active PROLIA 60 MG/ML SOLN 1 shot every 6 months for osteoprosis DENOSUMAB 52626045144 Active Hope Benavidez MD PhD Active CALCIUM + D + K 750-500-40 MG-UNT-MCG TABS 1 tab by mouth tw ice daily CALCIUM-VITAMIN D-VITAMIN K 29118410419 Active Hope landers MD PhD Active DAILY VALUE MULTIVITAMIN TABS 1 tab by mouth twice daily MULTIPLE VITAMIN 55254949241 Active Hope Benavidez MD PhD Active FISH OIL 306 MG CAPS 1 tab by mouth three times daily OMEGA-3 FATTY ACIDS 94150412144 Active Hope Benavidez MD PhD Active LUTEIN 10 MG TABS 1 tab daily LUTEIN 60770261366 Act cash Hope Benavidez MD PhD Active FLORANEX PACK 1 pack three times daily, for bowel health LACTOBACILLUS 71781645234 Active Hope Benavidez MD PhD Active LOMOTIL 2.5-0.025 MG TABS 1 tab by mouth prn DIPHENOXYLATE-ATROPINE 15939810829 Active Hope Benavidez MD PhD Active TRIAMTERENE-HCTZ 37.5-25 MG TABS 1 tab by mouth daily TRIAMTERENE-HCTZ 69443020222 Active Hope Benavidez MD PhD Acti ve MAGNESIUM GLUCONATE 250 MG TABS 1 tab tid MAGN ESIUM GLUCONATE 10932716568 Active Adam Yates MD Active ATENOLOL 50 MG TABS 1/2 tab q other day m-w-f ATE NOLOL 73617512778 Active Hope Benavidez MD PhD Active CYCLOBENZAPRINE HCL 10 MG TABS 1 tablet by mouth three times daily as needed for headaches CYCLOBENZAPRINE HCL 19534302649 No Longe r Active Adam Yates MD Active OMEPRAZOLE 20 MG CPDR 1 tablet by mouth daily for GERD OMEPRAZOLE 33450361074 No Longer Active Adam Yates MD A ctive ZOFRAN 8 MG TABS 1 tab by mouth every 12 hours prn 201 05/16/09 ONDANSETRON HCL 83147693754 No Longer Active Adam Yates MD Active PHENADOZ 25 MG SUPP 1 every 4 hrs. PRN PROMETHA ZINE HCL 38450768397 No Longer Active Adam Yates MD Active POTASSIUM CHLORIDE 20 MEQ PACK by mouth twice a day prn POTASSIUM CHLORIDE 94394612525 No Longer Active Adam Yates MD Active PROMETHAZINE HCL 25 MG TABS 1 Q. 4 hr. PRN PROM ETHAZINE HCL 17597898058 No Longer Active Adam Yates MD Active INNOPRAN XL 120 MG [id number] Take one by mouth daily 2 PROPRANOLOL HCL SR BEADS 58918639387 No Longer Active Adam Yates MD A ctive FLAGYL 500 MG TABS 1 pill by mouth three times daily, for diarrh ea METRONIDAZOLE 21195970250 No Longer Active Hope Benavidez MD PhD Active DYAZIDE 37.5-25 MG CAPS 1 qd TRIAMTERENE-HC TZ 40257626680 No Longer Active Hope Benavidez MD PhD Active PROZAC 20 MG CAPS 1 q d FLUOXETINE HCL 15715 458192 No Longer Active Hope Benavidez MD PhD Active SIMVASTATIN 40 MG TABS 1 qd SIMVASTATIN 004 75854403 No Longer Active Adam Yates MD Active MELOXICAM 15 MG TABS 1 qd MELOXICAM 8010162 6968 No Longer Active Adam Yates MD Active IMODIUM A-D 2 MG TABS 2 onset at diarrhea and prn. LOPERAMIDE HCL 45053169696 Active Hope Benavidez MD PhD Active EXCEDRIN EXTRA STRENGTH 250-250-65 MG TABS 1-2 q6h PRN headache 201 04/16/21 [id number] 96160559962 Active Hope Benavidez MD PhD Active FLAGYL 500 MG TABS 1 qid METRONIDAZOLE 79990 422736 No Longer Active Adam Yates MD Active LEVAQUIN 750 MG TABS 1 qd LEVOFLOXACIN 5486 2324539 No Longer Active Adam Yates MD Active ADULT ASPIRIN LOW STRENGTH 81 MG TBDP 1 qd A SPIRIN 28715639943 Active Hope Benavidez MD PhD Active LEVAQUIN 750 MG TABS 1 qd LEVAQUIN 750 MG T ABS 478478 LEVOFLOXACIN Inactive FLAGYL 500 MG TABS 1 qid FLAGYL 500 MG TABS 209344 METRONIDAZOLE Inactive MELOXICAM 15 MG TABS 1 qd MELOXICAM 15 MG T ABS 158749 MELOXICAM Inactive SIMVASTATIN 40 MG TABS 1 qd SIMVASTATIN 40 MG TABS 069757 SIMVASTATIN Inactive PROZAC 20 MG CAPS 1 q d PROZAC 20 MG CAPS 31 0385 FLUOXETINE HCL Inactive DYAZIDE 37.5-25 MG CAPS 1 qd DYAZIDE 37.5 -25 MG CAPS 337379 TRIAMTERENE-HCTZ Inactive INNOPRAN XL 120 MG [id number] Take one by mouth daily 2 INNOPRAN XL 120 MG [id number] PROPRANOLOL HCL SR BEADS Inactive PROMETHAZINE HCL 25 MG TABS 1 Q. 4 hr. PRN PROMETHAZINE HCL 25 MG TABS 282663 PROMETHAZINE HCL Inactive POTASSIUM CHLORIDE 20 MEQ PACK by mouth twice a day prn POTASSIUM CHLORIDE 20 MEQ PACK 347372 POTASSIUM CHLORIDE Inactive PHENADOZ 25 MG SUPP 1 every 4 hrs. PRN PHENADOZ 2 5 MG SUPP 660882 PROMETHAZINE HCL Inactive ZOFRAN 8 MG TABS 1 tab by mouth every 12 hours prn 201 05/16/09 ZOFRAN 8 MG TABS 064690 ONDANSETRON HCL Inactive OMEPRAZOLE 20 MG CPDR 1 tablet by mouth daily for GERD OMEPRAZOLE 20 MG CPDR 886980 OMEPRAZOLE Inactive CYCLOBENZAPRINE HCL 10 MG TABS 1 tablet by mouth three times daily as needed for headaches CYCLOBENZAPRINE HCL 10 MG TABS 679678 CYCLOBENZAPRINE HCL Inactive VITAMIN D3 4000 IU 1 tab 3 times daily VITAMIN D3 4000 IU Inactive PROPRANOLOL HCL 80 MG TABS 1 tab tue. and thur. 04/10 PROPRANOLOL HCL 80 MG TABS 093021 PROPRANOLOL HCL Inactive FLAGYL 500 MG TABS 1 pill by mouth three times daily, for diarrh ea FLAGYL 500 MG TABS 773231 METRONIDAZOLE Inactive BACTRIM DS 800-160 MG TABS [...] pressure, diastolic - 8462-4 64 mm[Hg] BP dobsno blood pressure, systolic - 8480-6 111 mm[Hg] [...] Range Description Chart Maintenance: labs added to [facility] - Chemistry magnesium, serum 2.0 mg/dL Chart Maintenance: Outside labs entered on [employer] - Chemistry sodium, serum 139 mmol/L potassium, serum 3.9 mmol/L blood glucose 85 mg/dL creatinine, serum 1.26 mg/dL aspartate aminotransferase (SGOT), serum 33 U/L alanine aminotransferase (SGPT), serum 44 U/L alkaline phosphatase, serum 127 U/L Chart Maintenance: Outside labs entered on [employer] - Hematology leukocyte count, blood 4.6 10*3/mm3 hemoglobin, blood 13.6 g/dL platelet count 162 10*3/mm3 Lab Report: Basic Metabolic Panel - Chem istry sodium, serum 136 mmol/L 886-161 5617/05/02 potassium, serum 4.1 mmol/L 3.5-5.2 chloride, serum [...] 1.16 mg/dL Lab Report: CBC W/ DIFF, [facility], AN AEROBIC CX - Chemistry sodium, serum 137 mmol/L potassium, serum 3.8 mmol/L blood glucose 79 mg/dL creatinine, serum 1.02 mg/dL magnesium, serum 1.2 mg/dL Lab Report: CBC W/ DIFF, [facility], AN AEROBIC CX - Hematology leukocyte count, blood 8.7 10*3/mm3 hemoglobin, blood 10.8 g/dL platelet count 319 10*3/mm3 Lab Report: CBC W/DIFF, Comp. Metabolic Panel - Chemistry sodium, serum 138 mmol/L 432-904 2291/08/14 potassium, serum 4.0 mmol/L 3.5-5.2 chloride, serum [...] 0.40 mg/dL 0.00-1.00 sodium, serum 136 mmol/L 594-551 3200/04/03 potassium, serum 3.7 mmol/L 3.5-5.2 chloride, serum [...] 0.40 mg/dL 0.00-1.00 sodium, serum 145 mmol/L 744-789 5680/02/02 potassium, serum 4.2 mmol/L 3.5-5.2 chloride, serum [...] 11 .6-14.8 platelet count 155 10^3/MM^3 10*3/mm3 885-056 9235/04/03 leukocyte count, blood 5.6 10^3/MM^3 10*3/mm3 4.6-10.2 [...] 11 .6-14.8 platelet count 246 10^3/MM^3 10*3/mm3 345-054 7564/08/14 leukocyte count, blood 5.8 10^3/MM^3 10*3/mm3 4.6-10.2 [...] Panel - Chemistry cholesterol, serum 209 mg/dL 508-577 5733/09/11 triglyceride, serum, fasting 113 mg/dL 30-200 HDL [...] semiquantitative 7.0 5.0-8.5 Lab Report: VITAMIN D, 25-HYDROXY/07084, MAGNESIUM/622 - Chemistry vitamin D 25-hydroxy, serum 41 ng/mL 30-100 Encounters Code Encounter Date Provider Facility CPT-91741 Level 4 Est. Patient 12:08:30 OPERATOR TECHNICIAN Hope cohn MD PhD [facility] CPT-99515 Level 4 Est. Patient 19:08:42 OPERATOR TECHNICIAN Hope cohn MD PhD [facility] CPT-71383 Level 4 Est. Patient 20:04:51 CDT Hope cohn MD PhD [facility] CPT-16076 Level 3 New Patient 01:46:11 OPERATOR TECHNICIAN Hope landers MD PhD [facility] Procedures Code Procedure Name Date Entry Date Standard Desc ription CPT-J3420 Vitamin B12 1000mcg (Cyanocobalamin) 09:26:20 OPERATOR TECHNICIAN CPT-05696 Abx/Therapy Injection 09:26:20 OPERATOR TECHNICIAN CPT-J3420 Vitamin B12 1000mcg (Cyanocobalamin) 09:44:40 OPERATOR TECHNICIAN CPT-82903 Abx/Therapy Injection 09:44:40 OPERATOR TECHNICIAN CPT-J3420 Vitamin B12 1000mcg (Cyanocobalamin) 09:15:54 OPERATOR TECHNICIAN CPT-33643 Abx/Therapy Injection 09:15:54 OPERATOR TECHNICIAN CPT-J3420 Vitamin B12 1000mcg (Cyanocobalamin) 09:46:44 OPERATOR TECHNICIAN CPT-65417 Abx/Therapy Injection 09:46:44 OPERATOR TECHNICIAN CPT-J3420 Vitamin B12 1000mcg (Cyanocobalamin) 09:47:34 OPERATOR TECHNICIAN CPT-67518 Abx/Therapy Injection 09:47:34 OPERATOR TECHNICIAN CPT-J3420 Vitamin B12 1000mcg (Cyanocobalamin) 14:35:50 OPERATOR TECHNICIAN CPT-J3420 Vitamin B12 1000mcg (Cyanocobalamin) 09:25:05 OPERATOR TECHNICIAN CPT-71831 Abx/Therapy Injection 09:25:05 OPERATOR TECHNICIAN CPT-G0008 Administration of Influenza Virus Vaccine 13:36:47 CDT CPT-66272 Fluzone High-Dose Intramuscular Suspension 11/15 13:36:47 CDT CPT-J0897 Prolia 60 mg 08:50:41 CDT CPT-49928 Abx/Therapy Injection 08:50:41 CDT CPT-98413 Bone Density 12:06:12 CDT CPT-86815 Bone Density 08:54:40 CDT CPT-OV Office Visit 15:37:02 CDT CPT-43843 Postop F/U Visit 15:47:49 CDT CPT-72930 Postop F/U Visit 15:21:02 CDT CPT-TCMH Transitional Care Mgmt-High 07:52:27 CDT 20 20/06/01 CPT-67320 Venipuncture Draw Fee 13:51:18 CDT CPT-51950 Venipuncture Draw Fee 10:14:55 OPERATOR TECHNICIAN CPT-14556 Venipuncture Draw Fee 13:39:45 OPERATOR TECHNICIAN CPT-OV Office Visit 15:11:22 OPERATOR TECHNICIAN CPT-73429 Venipuncture Draw Fee 09:20:49 OPERATOR TECHNICIAN CPT-71125 Venipuncture Draw Fee 16:52:15 OPERATOR TECHNICIAN CPT-10106 Venipuncture Draw Fee 10:37:24 OPERATOR TECHNICIAN CPT-52850 Venipuncture Draw Fee 08:21:21 OPERATOR TECHNICIAN CPT-95944 Venipuncture Draw Fee 08:30:20 OPERATOR TECHNICIAN CPT-39008 Venipuncture Draw Fee 14:53:21 OPERATOR TECHNICIAN CPT-70207 Venipuncture Draw Fee 09:40:56 OPERATOR TECHNICIAN CPT-36088 Venipuncture Draw Fee 10:30:47 OPERATOR TECHNICIAN CPT-44711 Venipuncture Draw Fee 10:46:17 OPERATOR TECHNICIAN CPT-09198 Venipuncture Draw Fee 11:12:45 OPERATOR TECHNICIAN CPT-71442 Venipuncture Draw Fee 09:53:33 OPERATOR TECHNICIAN CPT-38628 Venipuncture Draw Fee 11:53:51 OPERATOR TECHNICIAN CPT-35270 Venipuncture Draw Fee 10:33:50 OPERATOR TECHNICIAN CPT-07031 Venipuncture Draw Fee 10:05:01 OPERATOR TECHNICIAN CPT-81654 Venipuncture Draw Fee 14:32:52 OPERATOR TECHNICIAN CPT-38734 Venipuncture Draw Fee 09:46:13 OPERATOR TECHNICIAN CPT-44846 Venipuncture Draw Fee 11:34:27 OPERATOR TECHNICIAN CPT-90103 Venipuncture Draw Fee 13:17:16 OPERATOR TECHNICIAN CPT-67967 Venipuncture Draw Fee 12:05:39 CDT CPT-96571 Venipuncture Draw Fee 12:49:12 CDT CPT-88343 Venipuncture Draw Fee 12:37:18 CDT CPT-50462 Venipuncture Draw Fee 10:57:11 CDT CPT-26117 Venipuncture Draw Fee 13:47:40 CDT CPT-05760 Venipuncture Draw Fee 10:02:17 CDT CPT-05919 TB Tubersol 17:32:32 CDT CPT-OV Office Visit 16:21:53 CDT CPT-OV Office Visit 15:49:22 CDT CPT-OV Office Visit 17:16:31 CDT CPT-OV Office Visit 10:43:31 CDT
--- OUTSIDE RECORDS SUMMARY | 2019-02-09 13:12 | XMS REPORT | Clinical Summary ---
[...] (age-related) (natural) V49.8 1 Active [facility] Asymptomatic postmenopausal status (age- related) (natural) Diarrhea 787.91 Active Hope Benavidez MD PhD Diarrhea Osteoporosis 733.00 Active Hope Benavidez MD PhD Osteoporosis, unspecified ABDOMINAL PAIN, RIGHT LOWER QUADRANT ICD-789.03 Inactive Kina Joshua APRN ADENOCARCINOMA, COLON, CECUM ICD-153.4 Dick Yates MD ABDOMINAL PAIN, GENERALIZED ICD-789.07 Inactive oHpe Benavidez MD PhD FEVER UNSPECIFIED ICD-780.60 Inactive Hope cohn MD PhD UNSPECIFIED VENOUS INSUFFICIENCY ICD-459.81 [facility] Adam Yates MD ADENOCARCINOMA, ASCENDING COLON [...] shot every 6 months for osteoprosis DENOSUMAB 79087623589 Active Hope Benavidez MD PhD Active CALCIUM + D + K 750-500-40 MG-UNT-MCG TABS 1 tab by mouth tw ice daily CALCIUM-VITAMIN D-VITAMIN K 88332186765 Active Hope landers MD PhD Active DAILY VALUE MULTIVITAMIN TABS 1 tab by mouth twice daily MULTIPLE VITAMIN 99946508997 Active Hope Benavidez MD PhD Active FISH OIL 306 MG CAPS 1 tab by mouth three times daily OMEGA-3 FATTY ACIDS 11367840213 Active Hope Benavidez MD PhD Active LUTEIN 10 MG TABS 1 tab daily LUTEIN 67380839619 Act cash Hope Benavidez MD PhD Active FLORANEX PACK 1 pack three times daily, for bowel health LACTOBACILLUS 88151350301 Active Hope Benavidez MD PhD Active LOMOTIL 2.5-0.025 MG TABS 1 tab by mouth prn DIPHENOXYLATE-ATROPINE 00709395583 Active Hope Benavidez MD PhD Active TRIAMTERENE-HCTZ 37.5-25 MG TABS 1 tab by mouth daily TRIAMTERENE-HCTZ 45810377059 Active Hope Benavidez MD PhD Acti ve IRON 325 (65 FE) MG TABS 1 tab daily FERROUS SULF ATE 27266765285 Active Hope Benavidez MD PhD Active MAGNESIUM GLUCONATE 250 MG TABS 1 tab tid MAGN ESIUM GLUCONATE 83464015666 Active Adam Yates MD Active ATENOLOL 50 MG TABS 1/2 tab q other day m-w-f ATE NOLOL 36520520842 Active Adam Yates MD Active PROPRANOLOL HCL 80 MG TABS 1 tab tue. and thur. PROPRANOLOL HCL 69846676180 Active Adam Yates MD Active CYCLOBENZAPRINE HCL 10 MG TABS 1 tablet by mouth three times daily as needed for headaches CYCLOBENZAPRINE HCL 34357994861 No Longe r Active Adam Yates MD Active OMEPRAZOLE 20 MG CPDR 1 tablet by mouth daily for GERD OMEPRAZOLE 52031408580 No Longer Active Adam Yates MD A ctive ZOFRAN 8 MG TABS 1 tab by mouth every 12 hours prn 201 05/16/09 ONDANSETRON HCL 53099199099 No Longer Active Adam Yates MD Active PHENADOZ 25 MG SUPP 1 every 4 hrs. PRN PROMETHA ZINE HCL 68155163635 No Longer Active Adam Yates MD Active POTASSIUM CHLORIDE 20 MEQ PACK by mouth twice a day prn POTASSIUM CHLORIDE 30703026282 No Longer Active Adam Yates MD Active PROMETHAZINE HCL 25 MG TABS 1 Q. 4 hr. PRN PROM ETHAZINE HCL 25658334974 No Longer Active Adam Yates MD Active INNOPRAN XL 120 MG AT34R-PZT Take one by mouth daily 2 PROPRANOLOL HCL SR BEADS 60859567605 No Longer Active Adam Yates MD A ctive FLAGYL 500 MG TABS 1 pill by mouth three times daily, for diarrh ea METRONIDAZOLE 56306676757 No Longer Active Hope Benavidez MD PhD Active DYAZIDE 37.5-25 MG CAPS 1 qd TRIAMTERENE-HC TZ 58084181737 No Longer Active Hope Benavidez MD PhD Active PROZAC 20 MG CAPS 1 q d FLUOXETINE HCL 07204 151443 No Longer Active Hope Benavidez MD PhD Active SIMVASTATIN 40 MG TABS 1 qd SIMVASTATIN 004 42975858 No Longer Active Adam Yates MD Active MELOXICAM 15 MG TABS 1 qd MELOXICAM 5952532 0841 No Longer Active Adam Yates MD Active IMODIUM A-D 2 MG TABS 2 onset at diarrhea and prn. LOPERAMIDE HCL 40841917820 Active Hope Benavidez MD PhD Active EXCEDRIN EXTRA STRENGTH 250-250-65 MG TABS 1-2 q6h PRN headache 201 04/16/21 [id number] 85463566303 Active Hope Benavidez MD PhD Active FLAGYL 500 MG TABS 1 qid METRONIDAZOLE 33680 581181 No Longer Active Adam Yates MD Active LEVAQUIN 750 MG TABS 1 qd LEVOFLOXACIN 5486 8699818 No Longer Active Adam Yates MD Active ADULT ASPIRIN LOW STRENGTH 81 MG TBDP 1 qd A SPIRIN 07641801494 Active Hope Benavidez MD PhD Active LEVAQUIN 750 MG TABS 1 qd LEVAQUIN 750 MG T ABS 377321 LEVOFLOXACIN Inactive FLAGYL 500 MG TABS 1 qid FLAGYL 500 MG TABS 899933 METRONIDAZOLE Inactive MELOXICAM 15 MG TABS 1 qd MELOXICAM 15 MG T ABS 765302 MELOXICAM Inactive SIMVASTATIN 40 MG TABS 1 qd SIMVASTATIN 40 MG TABS 048619 SIMVASTATIN Inactive PROZAC 20 MG CAPS 1 q d PROZAC 20 MG CAPS 31 0385 FLUOXETINE HCL Inactive DYAZIDE 37.5-25 MG CAPS 1 qd DYAZIDE 37.5 -25 MG CAPS 105398 TRIAMTERENE-HCTZ Inactive INNOPRAN XL 120 MG [id number] Take one by mouth daily 2 INNOPRAN XL 120 MG [id number]-MDT PROPRANOLOL HCL SR BEADS Inactive PROMETHAZINE HCL 25 MG TABS 1 Q. 4 hr. PRN PROMETHAZINE HCL 25 MG TABS 022747 PROMETHAZINE HCL Inactive POTASSIUM CHLORIDE 20 MEQ PACK by mouth twice a day prn POTASSIUM CHLORIDE 20 MEQ PACK 068338 POTASSIUM CHLORIDE Inactive PHENADOZ 25 MG SUPP 1 every 4 hrs. PRN PHENADOZ 2 5 MG SUPP 522136 PROMETHAZINE HCL Inactive ZOFRAN 8 MG TABS 1 tab by mouth every 12 hours prn 201 05/16/09 ZOFRAN 8 MG TABS 712597 ONDANSETRON HCL Inactive OMEPRAZOLE 20 MG CPDR 1 tablet by mouth daily for GERD OMEPRAZOLE 20 MG CPDR 804244 OMEPRAZOLE Inactive CYCLOBENZAPRINE HCL 10 MG TABS 1 tablet by mouth three times daily as needed for headaches CYCLOBENZAPRINE HCL 10 MG TABS 490798 CYCLOBENZAPRINE HCL Inactive FLAGYL 500 MG TABS 1 pill by mouth three times daily, for diarrh ea FLAGYL 500 MG TABS 471269 METRONIDAZOLE Inactive Advance Directives Directive Description Start [...] - Chem istry sodium, serum 137 mmol/L 618-016 0658/11/01 potassium, serum 3.7 mmol/L 3.5-5.2 chloride, serum 100 mmol/L 98-107 carbon dioxide, venous blood 31.8 mmol/L 21.0-32 .0 blood glucose 98 mg/dL 65-110 calcium, serum 8.6 mg/dL 8.5-10.1 urea nitrogen, blood 23 mg/dL 7-18 creatinine, serum 1.50 mg/dL 0.60-1.30 sodium, serum 136 mmol/L 894-747 4115/05/02 potassium, serum 4.1 mmol/L 3.5-5.2 chloride, serum [...] 11 .6-14.8 platelet count 22 10^3/MM^3 10*3/mm3 424-521 2721/11/19 leukocyte count, blood 10.4 10^3/MM^3 10*3/mm3 4.6-10.2 [...] Verified By Repeat Analysis 10^3/mm ^3 10*3/mm3 108-720 9371/12/10 leukocyte count, blood 7.8 10^3/MM^3 10*3/mm3 4.6-10.2 [...] 11 .6-14.8 platelet count 102 10^3/MM^3 10*3/mm3 422-853 1539/01/08 leukocyte count, blood 9.0 10^3/MM^3 10*3/mm3 4.6-10.2 [...] Comp. Metabolic Panel - Chemistry sodium, serum 140 mmol/L 451-076 0423/01/06 potassium, serum 3.4 mmol/L 3.5-5.2 chloride, serum [...] 0.40 mg/dL 0.00-1.00 sodium, serum 142 mmol/L 469-529 7553/01/03 potassium, serum 3.4 mmol/L 3.5-5.2 chloride, serum [...] 0.50 mg/dL 0.00-1.00 sodium, serum 139 mmol/L 871-506 5089/12/03 potassium, serum 3.7 mmol/L 3.5-5.2 chloride, serum 99 mmol/L 98-107 carbon dioxide, venous blood 30.6 mmol/L 21.0-32 .0 blood glucose 117 mg/dL 65-110 urea nitrogen, blood 15 mg/dL 7-18 creatinine, serum 1.50 mg/dL 0.60-1.30 alanine aminotransferase (SGPT), serum 27 U/L 78 aspartate aminotransferase (SGOT), serum 24 U/L 15-37 alkaline phosphatase, serum 169 U/L 50-136 calcium, serum 9.0 mg/dL 8.5-10.1 bilirubin, serum, total 0.40 mg/dL 0.00-1.00 sodium, serum 139 mmol/L 442-101 6703/10/17 potassium, serum 3.1 mmol/L 3.5-5.2 chloride, serum [...] 0.30 mg/dL 0.00-1.00 sodium, serum 139 mmol/L 226-415 3469/01/21 potassium, serum 3.4 mmol/L 3.5-5.2 chloride, serum [...] 0.40 mg/dL 0.00-1.00 sodium, serum 138 mmol/L 072-181 1043/01/28 potassium, serum 3.2 mmol/L 3.5-5.2 chloride, serum [...] 0.40 mg/dL 0.00-1.00 sodium, serum 136 mmol/L 485-950 7190/04/03 potassium, serum 3.7 mmol/L 3.5-5.2 chloride, serum [...] 0.40 mg/dL 0.00-1.00 sodium, serum 139 mmol/L 786-760 1311/02/18 potassium, serum 3.6 mmol/L 3.5-5.2 chloride, serum [...] 0.50 mg/dL 0.00-1.00 sodium, serum 140 mmol/L 764-061 3787/02/04 potassium, serum 3.6 mmol/L 3.5-5.2 chloride, serum 100 mmol/L 98-107 carbon dioxide, venous blood 32.9 mmol/L 21.0-32 .0 blood glucose 93 mg/dL 65-110 urea nitrogen, blood 15 mg/dL 7- creatinine, serum 1.00 mg/dL 0.60-1.30 alanine aminotransferase (SGPT), serum 14 U/L - aspartate aminotransferase (SGOT), serum 17 U/L 15-37 alkaline phosphatase, serum 118 U/L 50-136 calcium, serum 9.1 mg/dL 8.5-10.1 bilirubin, serum, total 0.70 mg/dL 0.00-1.00 sodium, serum 136 mmol/L 537-998 0437/02/11 potassium, serum 3.1 mmol/L 3.5-5.2 chloride, serum 97 mmol/L 98-107 carbon dioxide, venous blood 31.8 mmol/L 21.0-32 .0 blood glucose 99 mg/dL 65-110 urea nitrogen, blood 20 mg/dL 7-18 creatinine, serum 0.90 mg/dL 0.60-1.30 alanine aminotransferase (SGPT), serum 11 U/L 12- aspartate aminotransferase (SGOT), serum 15 U/L 15-37 alkaline phosphatase, serum 106 U/L 50-136 calcium, serum 8.7 mg/dL 8.5-10.1 bilirubin, serum, total 0.50 mg/dL 0.00-1.00 sodium, serum 138 mmol/L 948-116 3256/08/14 potassium, serum 4.0 mmol/L 3.5-5.2 chloride, serum [...] 11 .6-14.8 platelet count 193 10^3/MM^3 10*3/mm3 107-725 7595/02/18 leukocyte count, blood 4.0 10^3/MM^3 10*3/mm3 4.6-10.2 [...] 11 .6-14.8 platelet count 134 10^3/MM^3 10*3/mm3 471-475 4369/02/11 leukocyte count, blood 4.8 10^3/MM^3 10*3/mm3 4.6-10.2 [...] 11 .6-14.8 platelet count 102 10^3/MM^3 10*3/mm3 135-897 5511/04/03 leukocyte count, blood 5.6 10^3/MM^3 10*3/mm3 4.6-10.2 [...] 11 .6-14.8 platelet count 246 10^3/MM^3 10*3/mm3 394-683 8596/02/04 leukocyte count, blood 3.6 10^3/MM^3 10*3/mm3 4.6-10.2 [...] 11 .6-14.8 platelet count 70 10^3/MM^3 10*3/mm3 261-495 2659/01/28 leukocyte count, blood 4.2 10^3/MM^3 10*3/mm3 4.6-10.2 [...] 11 .6-14.8 platelet count 73 10^3/MM^3 10*3/mm3 033-835 3137/01/21 leukocyte count, blood 4.9 10^3/MM^3 10*3/mm3 4.6-10.2 [...] .6-14.8 platelet count 38 recounted 10^3/mm^3 10*3/mm3 340-587 8117/10/17 leukocyte count, blood 12.0 10^3/MM^3 10*3/mm3 4.6-10.2 [...] 11 .6-14.8 platelet count 232 10^3/MM^3 10*3/mm3 930-732 4711/12/03 leukocyte count, blood 8.2 10^3/MM^3 10*3/mm3 4.6-10.2 [...] 11 .6-14.8 platelet count 98 10^3/MM^3 10*3/mm3 408-001 0125/01/06 leukocyte count, blood 7.6 10^3/MM^3 10*3/mm3 4.6-10.2 [...] 11 .6-14.8 platelet count 132 10^3/MM^3 10*3/mm3 652-662 8524/01/03 leukocyte count, blood 8.1 10^3/MM^3 10*3/mm3 4.6-10.2 [...] Panel, Manual Diff/Morphology - Chemistry sodium, serum 140 mmol/L 816-650 9288/12/17 potassium, serum 3.3 mmol/L 3.5-5.2 chloride, serum [...] 0.40 mg/dL 0.00-1.00 sodium, serum 138 mmol/L 184-325 7193/12/24 potassium, serum 3.7 mmol/L 3.5-5.2 chloride, serum [...] 0.50 mg/dL 0.00-1.00 sodium, serum 141 mmol/L 994-442 3344/11/25 potassium, serum 3.9 mmol/L 3.5-5.2 chloride, serum [...] 0.50 mg/dL 0.00-1.00 sodium, serum 137 mmol/L 307-320 7366/11/12 potassium, serum 3.2 mmol/L 3.5-5.2 chloride, serum 96 mmol/L 98-107 carbon dioxide, venous blood 34.5 mmol/L 21.0-32 .0 blood glucose 130 mg/dL 65-110 urea nitrogen, blood 32 mg/dL 7-18 creatinine, serum 1.30 mg/dL 0.60-1.30 alanine aminotransferase (SGPT), serum 40 U/L 78 aspartate aminotransferase (SGOT), serum 45 U/L 15-37 alkaline phosphatase, serum 239 U/L 50-136 calcium, serum 8.7 mg/dL 8.5-10.1 bilirubin, serum, total 0.40 mg/dL 0.00-1.00 sodium, serum 138 mmol/L 719-445 1526/11/05 potassium, serum 3.9 mmol/L 3.5-5.2 chloride, serum [...] 0.40 mg/dL 0.00-1.00 sodium, serum 135 mmol/L 775-821 7701/10/22 potassium, serum 3.0 mmol/L 3.5-5.2 chloride, serum [...] 0.50 mg/dL 0.00-1.00 sodium, serum 128 mmol/L 006-247 6533/10/29 potassium, serum 2.6 mmol/L 3.5-5.2 chloride, serum [...] 0.50 mg/dL 0.00-1.00 sodium, serum 141 mmol/L 881-515 7444/01/14 potassium, serum 3.9 mmol/L 3.5-5.2 chloride, serum [...] 11 .6-14.8 platelet count 428 10^3/MM^3 10*3/mm3 647-780 9776/11/05 leukocyte count, blood 16.4 10^3/MM^3 10*3/mm3 4.6-10.2 [...] 11 .6-14.8 platelet count 215 10^3/MM^3 10*3/mm3 705-030 6351/10/29 leukocyte count, blood 26.3 10^3/MM^3 10*3/mm3 4.6-10.2 [...] 11 .6-14.8 platelet count 268 10^3/MM^3 10*3/mm3 868-973 2267/11/12 leukocyte count, blood 12.1 10^3/MM^3 10*3/mm3 4.6-10.2 [...] 11 .6-14.8 platelet count 157 10^3/MM^3 10*3/mm3 788-905 0803/11/25 leukocyte count, blood 21.1 10^3/MM^3 10*3/mm3 4.6-10.2 [...] 11 .6-14.8 platelet count 46 10^3/MM^3 10*3/mm3 710-107 0344/12/17 leukocyte count, blood 18.6 10^3/MM^3 10*3/mm3 4.6-10.2 [...] 11 .6-14.8 platelet count 75 10^3/MM^3 10*3/mm3 788-419 5123/12/24 leukocyte count, blood 14.0 10^3/MM^3 10*3/mm3 4.6-10.2 [...] 11 .6-14.8 platelet count 66 10^3/MM^3 10*3/mm3 458-350 1165/01/14 leukocyte count, blood 6.2 10^3/MM^3 10*3/mm3 4.6-10.2 [...] - Chem istry sodium, serum 141 mmol/L 919-747 9771/11/19 potassium, serum 3.9 mmol/L 3.5-5.2 chloride, serum [...] 0.50 mg/dL 0.00-1.00 sodium, serum 142 mmol/L 474-742 3583/12/10 potassium, serum 3.9 mmol/L 3.5-5.2 chloride, serum [...] Diff/Morphology - Chemistry sodium, serum 142 mmol/L 033-116 1107/12/31 potassium, serum 3.6 mmol/L 3.5-5.2 chloride, serum [...] Panel - Chemistry cholesterol, serum 209 mg/dL 003-234 4097/09/11 triglyceride, serum, fasting 113 mg/dL 30-200 HDL cholesterol, serum 50 mg/dL 32-96 LDL cholesterol, serum 136 mg/dL 0-130 Encounters Code Encounter Date Provider Facility CPT-86164 Level 4 Est. Patient 20:04:51 CDT Hope cohn MD PhD [facility] CPT-40116 Level 3 New Patient 01:46:11 [employer] Hope landers MD PhD [facility] Procedures Code Procedure Name Date Entry Date Standard Desc ription CPT-G0008 Administration of Influenza Virus Vaccine 13:36:47 CDT CPT-73852 Fluzone High-Dose Intramuscular Suspension 11/15 13:36:47 CDT CPT-J0897 Prolia 60 mg 08:50:41 CDT CPT-01822 Abx/Therapy Injection 08:50:41 CDT CPT-71770 Bone Density 12:06:12 CDT CPT-92699 Bone Density 08:54:40 CDT CPT-OV Office Visit 15:37:02 CDT CPT-28471 Postop F/U Visit 15:47:49 CDT CPT-83294 Postop F/U Visit 15:21:02 CDT CPT-TCM[facility] Transitional Care Mgmt-High 07:52:27 CDT 20 20/06/01 CPT-83134 Venipuncture Draw Fee 13:51:18 CDT CPT-61291 Venipuncture Draw Fee 10:14:55 [employer] CPT-49253 Venipuncture Draw Fee 13:39:45 [employer] CPT-OV Office Visit 15:11:22 [employer] CPT-05810 Venipuncture Draw Fee 09:20:49 [employer] CPT-91700 Venipuncture Draw Fee 16:52:15 [employer] CPT-88223 Venipuncture Draw Fee 10:37:24 [employer] CPT-65491 Venipuncture Draw Fee 08:21:21 [employer] CPT-03272 Venipuncture Draw Fee 08:30:20 [employer] CPT-12210 Venipuncture Draw Fee 14:53:21 [employer] CPT-52454 Venipuncture Draw Fee 09:40:56 [employer] CPT-28656 Venipuncture Draw Fee 10:30:47 [employer] CPT-96127 Venipuncture Draw Fee 10:46:17 [employer] CPT-27356 Venipuncture Draw Fee 11:12:45 [employer] CPT-03987 Venipuncture Draw Fee 09:53:33 [employer] CPT-72598 Venipuncture Draw Fee 11:53:51 [employer] CPT-52296 Venipuncture Draw Fee 10:33:50 [employer] CPT-51690 Venipuncture Draw Fee 10:05:01 [employer] CPT-96721 Venipuncture Draw Fee 14:32:52 [employer] CPT-40712 Venipuncture Draw Fee 09:46:13 [employer] CPT-31523 Venipuncture Draw Fee 11:34:27 [employer] CPT-22955 Venipuncture Draw Fee 13:17:16 [employer] CPT-41638 Venipuncture Draw Fee 12:05:39 CDT CPT-29637 Venipuncture Draw Fee 12:49:12 CDT CPT-55129 Venipuncture Draw Fee 12:37:18 CDT CPT-73784 Venipuncture Draw Fee 10:57:11 CDT CPT-53897 Venipuncture Draw Fee 13:47:40 CDT CPT-72819 Venipuncture Draw Fee 10:02:17 CDT CPT-34498 TB Tubersol 17:32:32 CDT CPT-OV Office Visit 16:21:53 CDT CPT-OV Office Visit 15:49:22 CDT CPT-OV Office Visit 17:16:31 CDT CPT-OV Office Visit 10:43:31 CDT
--- OUTSIDE RECORDS SUMMARY | 2019-02-09 13:13 | XMS REPORT | Clinical Summary ---
Author Author Renaldo, Florecita Munoz Organization [facility] Address Unknown Phone Allergies, Adverse Reactions, [...] MG CAPS 1 q d FLUOXETINE HCL 61065 396320 No Longer Active Hope Benavidez MD PhD Active INNOPRAN XL 120 MG [id number] Take one by mouth daily PROPRANOLOL HCL SR BEADS 55047523367 Active Hope Benavidez MD PhD Active POTASSIUM CHLORIDE 20 MEQ PACK by mouth twice a day prn POTASSIUM CHLORIDE 27098970171 Active Adam Yates MD Activ e CYCLOBENZAPRINE HCL 10 MG TABS 1 tablet by mouth three times daily as needed for headaches CYCLOBENZAPRINE HCL 05783888346 Active Selena Yates MD Active SIMVASTATIN 40 MG TABS 1 qd SIMVASTATIN 004 05293798 No Longer Active Adam Yates MD Active MELOXICAM 15 MG TABS 1 qd MELOXICAM 2935130 3953 No Longer Active Adam Yates MD Active ATENOLOL 50 MG TABS 1/2 tab q other day ATENOLOL 58573304117 Active Hope Benavidez MD PhD Active OMEPRAZOLE 20 MG CPDR 1 tablet by mouth daily for GERD OMEPRAZOLE 33722862825 Active Hope Benavidez MD PhD Active IMODIUM A-D 2 MG TABS 2 onset at diarrhea and prn. LOPERAMIDE HCL 14294936667 Active Hope Benavidez MD PhD Active PHENADOZ 25 MG SUPP 1 every 4 hrs. PRN PROMETHAZINE HCL 23965092006 Active Hope Benavidez MD PhD Active PROMETHAZINE HCL 25 MG TABS 1 Q. 4 hr. PRN PROMETH AZINE HCL 79950634762 Active Hope Benavidez MD PhD Active EXCEDRIN EXTRA STRENGTH 250-250-65 MG TABS 1-2 q6h PRN headache 201 04/16/21 JFTUTBI-NHAVSCPOXOEWC-JCFIRLZL 85020991129 Active Hope Benavidez MD PhD Active ZOFRAN 4 MG TABS 1 q 6 hr prn ONDANSETRON HCL 1054079 7002 Active Fay Alberts Active FLAGYL 500 MG TABS 1 qid METRONIDAZOLE 24455 766745 No Longer Active Adam Yates MD Active LEVAQUIN 750 MG TABS 1 qd LEVOFLOXACIN 5486 6015961 No Longer Active Adam Yates MD Active DYAZIDE 37.5-25 MG CAPS 1 qd TRIAMTERENE-HCTZ 5886 8031575 Active Hope Benavidez MD PhD Active ADULT ASPIRIN LOW STRENGTH 81 MG TBDP 1 qd Lisa ANGUIANO 37410772806 Active Hope Benavidez MD PhD Active FLAGYL 500 MG TABS 1 qid FLAGYL 500 MG TABS 271311 METRONIDAZOLE Inactive PROZAC 20 MG CAPS 1 q d PROZAC 20 MG CAPS 31 0385 FLUOXETINE HCL Inactive SIMVASTATIN 40 MG TABS 1 qd SIMVASTATIN 40 MG TABS 831824 SIMVASTATIN Inactive MELOXICAM 15 MG TABS 1 qd MELOXICAM 15 MG T ABS 869835 MELOXICAM Inactive LEVAQUIN 750 MG TABS 1 qd LEVAQUIN 750 MG T ABS 392494 LEVOFLOXACIN Inactive Advance Directives Directive Description Start Date [...] - Chem istry sodium, serum 137 mmol/L 412-146 5547/11/01 potassium, serum 3.7 mmol/L 3.5-5.2 chloride, serum 100 mmol/L 98-107 carbon dioxide, venous blood 31.8 mmol/L 21.0-32 .0 blood glucose 98 mg/dL 65-110 calcium, serum 8.6 mg/dL 8.5-10.1 urea nitrogen, blood 23 mg/dL 7-18 creatinine, serum 1.50 mg/dL 0.60-1.30 sodium, serum 136 mmol/L 931-409 0184/05/02 potassium, serum 4.1 mmol/L 3.5-5.2 chloride, serum [...] 11 .6-14.8 platelet count 133 10^3/MM^3 10*3/mm3 641-727 4231/01/17 leukocyte count, blood 3.1 10^3/MM^3 10*3/mm3 4.6-10.2 [...] 11 .6-14.8 platelet count 22 10^3/MM^3 10*3/mm3 013-304 0177/11/19 leukocyte count, blood 10.4 10^3/MM^3 10*3/mm3 4.6-10.2 [...] Verified By Repeat Analysis 10^3/mm ^3 10*3/mm3 667-727 8238/12/10 leukocyte count, blood 7.8 10^3/MM^3 10*3/mm3 4.6-10.2 [...] Panel - Chemistry sodium, serum 139 mmol/L 567-879 1267/12/03 potassium, serum 3.7 mmol/L 3.5-5.2 chloride, serum [...] 0.40 mg/dL 0.00-1.00 sodium, serum 137 mmol/L 370-126 1763/10/01 potassium, serum 3.5 mmol/L 3.5-5.2 chloride, serum [...] 0.60 mg/dL 0.00-1.00 sodium, serum 136 mmol/L 741-439 4835/10/08 potassium, serum 3.1 mmol/L 3.5-5.2 chloride, serum [...] 0.60 mg/dL 0.00-1.00 sodium, serum 139 mmol/L 908-266 0749/10/17 potassium, serum 3.1 mmol/L 3.5-5.2 chloride, serum [...] 0.30 mg/dL 0.00-1.00 sodium, serum 139 mmol/L 497-973 5125/01/21 potassium, serum 3.4 mmol/L 3.5-5.2 chloride, serum [...] 0.40 mg/dL 0.00-1.00 sodium, serum 138 mmol/L 103-318 5137/01/28 potassium, serum 3.2 mmol/L 3.5-5.2 chloride, serum [...] 0.40 mg/dL 0.00-1.00 sodium, serum 140 mmol/L 811-857 0404/02/04 potassium, serum 3.6 mmol/L 3.5-5.2 chloride, serum [...] 0.70 mg/dL 0.00-1.00 sodium, serum 142 mmol/L 871-170 1703/01/03 potassium, serum 3.4 mmol/L 3.5-5.2 chloride, serum [...] 0.50 mg/dL 0.00-1.00 sodium, serum 140 mmol/L 960-374 3646/01/06 potassium, serum 3.4 mmol/L 3.5-5.2 chloride, serum [...] 0.40 mg/dL 0.00-1.00 sodium, serum 136 mmol/L 600-142 6053/04/03 potassium, serum 3.7 mmol/L 3.5-5.2 chloride, serum [...] 0.40 mg/dL 0.00-1.00 sodium, serum 136 mmol/L 500-211 1427/02/11 potassium, serum 3.1 mmol/L 3.5-5.2 chloride, serum [...] 0.50 mg/dL 0.00-1.00 sodium, serum 139 mmol/L 072-129 0579/02/18 potassium, serum 3.6 mmol/L 3.5-5.2 chloride, serum [...] 11 .6-14.8 platelet count 246 10^3/MM^3 10*3/mm3 587-726 9349/02/18 leukocyte count, blood 4.0 10^3/MM^3 10*3/mm3 4.6-10.2 [...] 11 .6-14.8 platelet count 134 10^3/MM^3 10*3/mm3 090-260 9960/01/03 leukocyte count, blood 8.1 10^3/MM^3 10*3/mm3 4.6-10.2 [...] 11 .6-14.8 platelet count 96 10^3/MM^3 10*3/mm3 540-106 9069/01/06 leukocyte count, blood 7.6 10^3/MM^3 10*3/mm3 4.6-10.2 [...] 11 .6-14.8 platelet count 132 10^3/MM^3 10*3/mm3 574-106 7233/02/11 leukocyte count, blood 4.8 10^3/MM^3 10*3/mm3 4.6-10.2 [...] 11 .6-14.8 platelet count 102 10^3/MM^3 10*3/mm3 334-068 8078/02/04 leukocyte count, blood 3.6 10^3/MM^3 10*3/mm3 4.6-10.2 [...] 11 .6-14.8 platelet count 70 10^3/MM^3 10*3/mm3 657-689 6697/01/28 leukocyte count, blood 4.2 10^3/MM^3 10*3/mm3 4.6-10.2 [...] 11 .6-14.8 platelet count 73 10^3/MM^3 10*3/mm3 540-155 9001/01/21 leukocyte count, blood 4.9 10^3/MM^3 10*3/mm3 4.6-10.2 [...] .6-14.8 platelet count 38 recounted 10^3/mm^3 10*3/mm3 671-712 6046/10/08 leukocyte count, blood 2.9 10^3/MM^3 10*3/mm3 4.6-10.2 [...] 11 .6-14.8 platelet count 229 10^3/MM^3 10*3/mm3 864-345 9351/10/17 leukocyte count, blood 12.0 10^3/MM^3 10*3/mm3 4.6-10.2 [...] 11 .6-14.8 platelet count 232 10^3/MM^3 10*3/mm3 282-965 2574/10/01 leukocyte count, blood 8.3 10^3/MM^3 10*3/mm3 4.6-10.2 [...] 11 .6-14.8 platelet count 378 10^3/MM^3 10*3/mm3 347-245 0295/12/03 leukocyte count, blood 8.2 10^3/MM^3 10*3/mm3 4.6-10.2 [...] Diff/Morphology - Chemistry sodium, serum 141 mmol/L 125-645 1930/11/25 potassium, serum 3.9 mmol/L 3.5-5.2 chloride, serum [...] 0.50 mg/dL 0.00-1.00 sodium, serum 137 mmol/L 446-741 9005/11/12 potassium, serum 3.2 mmol/L 3.5-5.2 chloride, serum [...] 0.40 mg/dL 0.00-1.00 sodium, serum 140 mmol/L 035-680 5466/12/17 potassium, serum 3.3 mmol/L 3.5-5.2 chloride, serum [...] 0.40 mg/dL 0.00-1.00 sodium, serum 138 mmol/L 606-574 5485/12/24 potassium, serum 3.7 mmol/L 3.5-5.2 chloride, serum [...] 0.50 mg/dL 0.00-1.00 sodium, serum 138 mmol/L 106-159 3080/11/05 potassium, serum 3.9 mmol/L 3.5-5.2 chloride, serum [...] 0.40 mg/dL 0.00-1.00 sodium, serum 135 mmol/L 721-077 9593/10/22 potassium, serum 3.0 mmol/L 3.5-5.2 chloride, serum [...] 0.50 mg/dL 0.00-1.00 sodium, serum 128 mmol/L 735-669 6228/10/29 potassium, serum 2.6 mmol/L 3.5-5.2 chloride, serum [...] 0.50 mg/dL 0.00-1.00 sodium, serum 141 mmol/L 063-674 0739/01/14 potassium, serum 3.9 mmol/L 3.5-5.2 chloride, serum [...] 11 .6-14.8 platelet count 22 10^3/MM^3 10*3/mm3 925-420 6875/10/22 leukocyte count, blood 14.7 10^3/MM^3 10*3/mm3 4.6-10.2 [...] 11 .6-14.8 platelet count 428 10^3/MM^3 10*3/mm3 280-313 8492/10/29 leukocyte count, blood 26.3 10^3/MM^3 10*3/mm3 4.6-10.2 [...] 11 .6-14.8 platelet count 268 10^3/MM^3 10*3/mm3 921-090 4459/11/12 leukocyte count, blood 12.1 10^3/MM^3 10*3/mm3 4.6-10.2 [...] 11 .6-14.8 platelet count 157 10^3/MM^3 10*3/mm3 139-386 8006/11/05 leukocyte count, blood 16.4 10^3/MM^3 10*3/mm3 4.6-10.2 [...] 11 .6-14.8 platelet count 215 10^3/MM^3 10*3/mm3 559-505 4953/12/24 leukocyte count, blood 14.0 10^3/MM^3 10*3/mm3 4.6-10.2 [...] 11 .6-14.8 platelet count 66 10^3/MM^3 10*3/mm3 339-186 1819/12/17 leukocyte count, blood 18.6 10^3/MM^3 10*3/mm3 4.6-10.2 [...] 11 .6-14.8 platelet count 75 10^3/MM^3 10*3/mm3 375-819 7388/11/25 leukocyte count, blood 21.1 10^3/MM^3 10*3/mm3 4.6-10.2 [...] 11 .6-14.8 platelet count 413 10^3/MM^3 10*3/mm3 284-751 1934/01/16 leukocyte count, blood 3.6 10^3/MM^3 10*3/mm3 4.6-10.2 [...] - Chem istry sodium, serum 141 mmol/L 280-526 2189/11/19 potassium, serum 3.9 mmol/L 3.5-5.2 chloride, serum [...] 0.50 mg/dL 0.00-1.00 sodium, serum 142 mmol/L 330-103 2662/12/10 potassium, serum 3.9 mmol/L 3.5-5.2 chloride, serum [...] Diff/Morphology - Chemistry sodium, serum 142 mmol/L 714-327 4578/12/31 potassium, serum 3.6 mmol/L 3.5-5.2 chloride, serum [...] 3.5-5.2 Encounters Code Encounter Date Provider Facility CPT-35402 Level 3 New Patient 01:46:11 [employer] Hope landers MD PhD [facility] Procedures Code Procedure Name Date Entry Date Standard Desc ription CPT-61212 Postop F/U Visit 15:21:02 CDT CPT-TCMH Transitional Care Mgmt-High 07:52:27 CDT 20 20/06/01 CPT-51649 Venipuncture Draw Fee 13:51:18 CDT CPT-59034 Venipuncture Draw Fee 10:14:55 [employer] CPT-57431 Venipuncture Draw Fee 13:39:45 [employer] CPT-OV Office Visit 15:11:22 [employer] CPT-58273 Venipuncture Draw Fee 09:20:49 [employer] CPT-58541 Venipuncture Draw Fee 16:52:15 [employer] CPT-78385 Venipuncture Draw Fee 10:37:24 [employer] CPT-00385 Venipuncture Draw Fee 08:21:21 [employer] CPT-76840 Venipuncture Draw Fee 08:30:20 [employer] CPT-08568 Venipuncture Draw Fee 14:53:21 [employer] CPT-31685 Venipuncture Draw Fee 09:40:56 [employer] CPT-50713 Venipuncture Draw Fee 10:30:47 [employer] CPT-43700 Venipuncture Draw Fee 10:46:17 [employer] CPT-03564 Venipuncture Draw Fee 11:12:45 [employer] CPT-75174 Venipuncture Draw Fee 09:53:33 [employer] CPT-74638 Venipuncture Draw Fee 11:53:51 [employer] CPT-48543 Venipuncture Draw Fee 10:33:50 [employer] CPT-99330 Venipuncture Draw Fee 10:05:01 [employer] CPT-51828 Venipuncture Draw Fee 14:32:52 [employer] CPT-96562 Venipuncture Draw Fee 09:46:13 [employer] CPT-19450 Venipuncture Draw Fee 11:34:27 [employer] CPT-37031 Venipuncture Draw Fee 13:17:16 [employer] CPT-67641 Venipuncture Draw Fee 12:05:39 CDT CPT-91187 Venipuncture Draw Fee 12:49:12 CDT CPT-80234 Venipuncture Draw Fee 12:37:18 CDT CPT-82097 Venipuncture Draw Fee 10:57:11 CDT CPT-45706 Venipuncture Draw Fee 13:47:40 CDT CPT-79375 Venipuncture Draw Fee 10:02:17 CDT CPT-98720 TB Tubersol 17:32:32 CDT CPT-OV Office Visit 16:21:53 CDT CPT-OV Office Visit 15:49:22 CDT CPT-OV Office Visit 17:16:31 CDT CPT-OV Office Visit 10:43:31 CDT
--- OUTSIDE RECORDS SUMMARY | 2019-02-09 13:13 | XMS REPORT | Clinical Summary ---
Author Author Renaldo, Florecita Munoz Organization [facility] Address Unknown Phone [...] Benavidez MD PhD Unspecified idiopathic peripheral neuropathy ABDOMINAL PAIN, RIGHT LOWER QUADRANT ICD-789.03 Inactive [...] ICD-V58.75 Bam Yates MD Colon cancer ICD-153.9 Inactive Adam luna MD Asymptomatic postmenopausal status (age-related) (natural) I CD-V49.81 Inactive Hope Benavidez MD PhD Dysuria ICD-788.1 Inactive Hope Benavidez MD PhD 201 05/19/01 Medication List Medication Instructions Start Date Stop Date Generic Name NDC Status Provider Patient Instruction VITAMIN D3 4000 IU 1 tab 3 times daily VITAMIN D3 400 0 IU Active Hope Benavidez MD PhD Active BACTRIM DS 800-160 MG TABS 1 pill by mouth twice daily, for UTI SULFAMETHOXAZOLE-TRIMETHOPRIM 16309150195 No Longer Active Lisa Benavidez MD PhD Active PROLIA 60 MG/ML SOLN 1 shot every 6 months for osteoprosis DENOSUMAB 08530728532 Active Hope Benavidez MD PhD Active CALCIUM + D + K 750-500-40 MG-UNT-MCG TABS 1 tab by mouth tw ice daily CALCIUM-VITAMIN D-VITAMIN K 70881109837 Active Hope landers MD PhD Active DAILY VALUE MULTIVITAMIN TABS 1 tab by mouth twice daily MULTIPLE VITAMIN 93165987800 Active Hope Benavidez MD PhD Active FISH OIL 306 MG CAPS 1 tab by mouth three times daily OMEGA-3 FATTY ACIDS 18818935632 Active Hope Benavidez MD PhD Active LUTEIN 10 MG TABS 1 tab daily LUTEIN 83586752870 Act cash Hope Benavidez MD PhD Active FLORANEX PACK 1 pack three times daily, for bowel health LACTOBACILLUS 68817455633 Active Hope Benavidez MD PhD Active LOMOTIL 2.5-0.025 MG TABS 1 tab by mouth prn DIPHENOXYLATE-ATROPINE 13999314391 Active Hope Benavidez MD PhD Active TRIAMTERENE-HCTZ 37.5-25 MG TABS 1 tab by mouth daily TRIAMTERENE-HCTZ 12801240400 Active Hope Benavidez MD PhD Acti ve IRON 325 (65 FE) MG TABS 1 tab daily FERROUS SULF ATE 75166746056 Active Hope Benavidez MD PhD Active MAGNESIUM GLUCONATE 250 MG TABS 1 tab tid MAGN ESIUM GLUCONATE 17797108046 Active Adam Yates MD Active ATENOLOL 50 MG TABS 1/2 tab q other day m-w-f ATE NOLOL 36040039097 Active Hope Benavidez MD PhD Active PROPRANOLOL HCL 80 MG TABS 1 tab tue. and thur. PROPRANOLOL HCL 33026818124 Active Adam Yates MD Active CYCLOBENZAPRINE HCL 10 MG TABS 1 tablet by mouth three times daily as needed for headaches CYCLOBENZAPRINE HCL 35357384419 No Longe r Active Adam Yates MD Active OMEPRAZOLE 20 MG CPDR 1 tablet by mouth daily for GERD OMEPRAZOLE 54894312455 No Longer Active Adam Yates MD A ctive ZOFRAN 8 MG TABS 1 tab by mouth every 12 hours prn 201 05/16/09 ONDANSETRON HCL 63521067234 No Longer Active Adam Yates MD Active PHENADOZ 25 MG SUPP 1 every 4 hrs. PRN PROMETHA ZINE HCL 57336001396 No Longer Active Adam Yates MD Active POTASSIUM CHLORIDE 20 MEQ PACK by mouth twice a day prn POTASSIUM CHLORIDE 83409179666 No Longer Active Adam Yates MD Active PROMETHAZINE HCL 25 MG TABS 1 Q. 4 hr. PRN PROM ETHAZINE HCL 84731184721 No Longer Active Adam Yates MD Active INNOPRAN XL 120 MG [id number] Take one by mouth daily 2 PROPRANOLOL HCL SR BEADS 54335723035 No Longer Active Adam Yates MD A ctive FLAGYL 500 MG TABS 1 pill by mouth three times daily, for diarrh ea METRONIDAZOLE 12867273413 No Longer Active Hope Benavidez MD PhD Active DYAZIDE 37.5-25 MG CAPS 1 qd TRIAMTERENE-HC TZ 30719664902 No Longer Active Hope Benavidez MD PhD Active PROZAC 20 MG CAPS 1 q d FLUOXETINE HCL 20188 480782 No Longer Active Hope Benavidez MD PhD Active SIMVASTATIN 40 MG TABS 1 qd SIMVASTATIN 004 61670710 No Longer Active Adam Yates MD Active MELOXICAM 15 MG TABS 1 qd MELOXICAM 9327148 7660 No Longer Active Adam Yates MD Active IMODIUM A-D 2 MG TABS 2 onset at diarrhea and prn. LOPERAMIDE HCL 83243064990 Active Hope Benavidez MD PhD Active EXCEDRIN EXTRA STRENGTH 250-250-65 MG TABS 1-2 q6h PRN headache 201 04/16/21 [id number] 60093134702 Active Hope Benavidez MD PhD Active FLAGYL 500 MG TABS 1 qid METRONIDAZOLE 72739 383551 No Longer Active Adam Yates MD Active LEVAQUIN 750 MG TABS 1 qd LEVOFLOXACIN 5486 2504821 No Longer Active Adam Yates MD Active ADULT ASPIRIN LOW STRENGTH 81 MG TBDP 1 qd A SPIRIN 88243124893 Active Hope Benavidez MD PhD Active LEVAQUIN 750 MG TABS 1 qd LEVAQUIN 750 MG T ABS 794246 LEVOFLOXACIN Inactive FLAGYL 500 MG TABS 1 qid FLAGYL 500 MG TABS 787686 METRONIDAZOLE Inactive MELOXICAM 15 MG TABS 1 qd MELOXICAM 15 MG T ABS 583630 MELOXICAM Inactive SIMVASTATIN 40 MG TABS 1 qd SIMVASTATIN 40 MG TABS 688654 SIMVASTATIN Inactive PROZAC 20 MG CAPS 1 q d PROZAC 20 MG CAPS 31 0385 FLUOXETINE HCL Inactive DYAZIDE 37.5-25 MG CAPS 1 qd DYAZIDE 37.5 -25 MG CAPS 876321 TRIAMTERENE-HCTZ Inactive INNOPRAN XL 120 MG [id number] Take one by mouth daily 2 INNOPRAN XL 120 MG [id number] PROPRANOLOL HCL SR BEADS Inactive PROMETHAZINE HCL 25 MG TABS 1 Q. 4 hr. PRN PROMETHAZINE HCL 25 MG TABS 543793 PROMETHAZINE HCL Inactive POTASSIUM CHLORIDE 20 MEQ PACK by mouth twice a day prn POTASSIUM CHLORIDE 20 MEQ PACK 512848 POTASSIUM CHLORIDE Inactive PHENADOZ 25 MG SUPP 1 every 4 hrs. PRN PHENADOZ 2 5 MG SUPP 313387 PROMETHAZINE HCL Inactive ZOFRAN 8 MG TABS 1 tab by mouth every 12 hours prn 201 05/16/09 ZOFRAN 8 MG TABS 603184 ONDANSETRON HCL Inactive OMEPRAZOLE 20 MG CPDR 1 tablet by mouth daily for GERD OMEPRAZOLE 20 MG CPDR 057791 OMEPRAZOLE Inactive CYCLOBENZAPRINE HCL 10 MG TABS 1 tablet by mouth three times daily as needed for headaches CYCLOBENZAPRINE HCL 10 MG TABS 046858 CYCLOBENZAPRINE HCL Inactive FLAGYL 500 MG TABS 1 pill by mouth three times daily, for diarrh ea FLAGYL 500 MG TABS 099929 METRONIDAZOLE Inactive BACTRIM DS 800-160 MG TABS [...] Range Description Chart Maintenance: labs added to [facility] - Chemistry magnesium, serum 2.0 mg/dL Chart Maintenance: Outside labs entered on [facility] - Chemistry sodium, serum 139 mmol/L potassium, serum 3.9 mmol/L blood glucose 85 mg/dL creatinine, serum 1.26 mg/dL aspartate aminotransferase (SGOT), serum 33 U/L alanine aminotransferase (SGPT), serum 44 U/L alkaline phosphatase, serum 127 U/L Chart Maintenance: Outside labs entered on [facility] - Hematology leukocyte count, blood 4.6 10*3/mm3 hemoglobin, blood 13.6 g/dL platelet count 162 10*3/mm3 Lab Report: Basic Metabolic Panel - Chem istry sodium, serum 136 mmol/L 465-385 6276/05/02 potassium, serum 4.1 mmol/L 3.5-5.2 chloride, serum [...] 11 .6-14.8 platelet count 102 10^3/MM^3 10*3/mm3 338-542 8205/01/08 leukocyte count, blood 9.0 10^3/MM^3 10*3/mm3 4.6-10.2 [...] 11 .6-14.8 platelet count 133 10^3/MM^3 10*3/mm3 249-104 3412/01/17 leukocyte count, blood 3.1 10^3/MM^3 10*3/mm3 4.6-10.2 [...] Panel - Chemistry sodium, serum 139 mmol/L 693-199 9086/01/21 potassium, serum 3.4 mmol/L 3.5-5.2 chloride, serum [...] 0.40 mg/dL 0.00-1.00 sodium, serum 138 mmol/L 990-759 3797/01/28 potassium, serum 3.2 mmol/L 3.5-5.2 chloride, serum [...] 0.40 mg/dL 0.00-1.00 sodium, serum 140 mmol/L 102-112 2148/02/04 potassium, serum 3.6 mmol/L 3.5-5.2 chloride, serum [...] 0.70 mg/dL 0.00-1.00 sodium, serum 136 mmol/L 673-144 7524/02/11 potassium, serum 3.1 mmol/L 3.5-5.2 chloride, serum [...] 0.50 mg/dL 0.00-1.00 sodium, serum 139 mmol/L 311-314 2173/02/18 potassium, serum 3.6 mmol/L 3.5-5.2 chloride, serum [...] 0.50 mg/dL 0.00-1.00 sodium, serum 140 mmol/L 037-064 2512/01/06 potassium, serum 3.4 mmol/L 3.5-5.2 chloride, serum [...] 0.40 mg/dL 0.00-1.00 sodium, serum 136 mmol/L 775-247 1292/04/03 potassium, serum 3.7 mmol/L 3.5-5.2 chloride, serum [...] 0.40 mg/dL 0.00-1.00 sodium, serum 142 mmol/L 672-191 0610/01/03 potassium, serum 3.4 mmol/L 3.5-5.2 chloride, serum [...] 0.50 mg/dL 0.00-1.00 sodium, serum 139 mmol/L 634-201 9940/12/03 potassium, serum 3.7 mmol/L 3.5-5.2 chloride, serum 99 mmol/L 98-107 carbon dioxide, venous blood 30.6 mmol/L 21.0-32 .0 blood glucose 117 mg/dL 65-110 urea nitrogen, blood 15 mg/dL 7-18 creatinine, serum 1.50 mg/dL 0.60-1.30 alanine aminotransferase (SGPT), serum 27 U/L 03 aspartate aminotransferase (SGOT), serum 24 U/L 15-37 alkaline phosphatase, serum 169 U/L 50-136 calcium, serum 9.0 mg/dL 8.5-10.1 bilirubin, serum, total 0.40 mg/dL 0.00-1.00 sodium, serum 138 mmol/L 492-142 3115/08/14 potassium, serum 4.0 mmol/L 3.5-5.2 chloride, serum [...] 11 .6-14.8 platelet count 193 10^3/MM^3 10*3/mm3 032-059 3933/12/03 leukocyte count, blood 8.2 10^3/MM^3 10*3/mm3 4.6-10.2 [...] 11 .6-14.8 platelet count 98 10^3/MM^3 10*3/mm3 449-280 6173/01/06 leukocyte count, blood 7.6 10^3/MM^3 10*3/mm3 4.6-10.2 [...] 11 .6-14.8 platelet count 132 10^3/MM^3 10*3/mm3 135-009 4523/01/03 leukocyte count, blood 8.1 10^3/MM^3 10*3/mm3 4.6-10.2 [...] 11 .6-14.8 platelet count 96 10^3/MM^3 10*3/mm3 007-860 2037/04/03 leukocyte count, blood 5.6 10^3/MM^3 10*3/mm3 4.6-10.2 [...] 11 .6-14.8 platelet count 246 10^3/MM^3 10*3/mm3 767-174 3092/02/18 leukocyte count, blood 4.0 10^3/MM^3 10*3/mm3 4.6-10.2 [...] 11 .6-14.8 platelet count 134 10^3/MM^3 10*3/mm3 914-968 4534/02/11 leukocyte count, blood 4.8 10^3/MM^3 10*3/mm3 4.6-10.2 [...] 11 .6-14.8 platelet count 102 10^3/MM^3 10*3/mm3 278-589 6679/02/04 leukocyte count, blood 3.6 10^3/MM^3 10*3/mm3 4.6-10.2 [...] 11 .6-14.8 platelet count 70 10^3/MM^3 10*3/mm3 190-895 2280/01/28 leukocyte count, blood 4.2 10^3/MM^3 10*3/mm3 4.6-10.2 [...] 11 .6-14.8 platelet count 73 10^3/MM^3 10*3/mm3 059-915 5852/01/21 leukocyte count, blood 4.9 10^3/MM^3 10*3/mm3 4.6-10.2 [...] Diff/Morphology - Chemistry sodium, serum 141 mmol/L 047-748 7657/01/14 potassium, serum 3.9 mmol/L 3.5-5.2 chloride, serum [...] 0.50 mg/dL 0.00-1.00 sodium, serum 140 mmol/L 683-795 5622/12/17 potassium, serum 3.3 mmol/L 3.5-5.2 chloride, serum [...] 0.40 mg/dL 0.00-1.00 sodium, serum 138 mmol/L 482-131 6538/12/24 potassium, serum 3.7 mmol/L 3.5-5.2 chloride, serum [...] 11 .6-14.8 platelet count 66 10^3/MM^3 10*3/mm3 488-216 5861/12/17 leukocyte count, blood 18.6 10^3/MM^3 10*3/mm3 4.6-10.2 [...] 11 .6-14.8 platelet count 75 10^3/MM^3 10*3/mm3 017-430 5674/01/14 leukocyte count, blood 6.2 10^3/MM^3 10*3/mm3 4.6-10.2 [...] - Chem istry sodium, serum 142 mmol/L 888-124 8789/12/10 potassium, serum 3.9 mmol/L 3.5-5.2 chloride, serum [...] Diff/Morphology - Chemistry sodium, serum 142 mmol/L 813-821 3394/12/31 potassium, serum 3.6 mmol/L 3.5-5.2 chloride, serum [...] Panel - Chemistry cholesterol, serum 209 mg/dL 006-775 0055/09/11 triglyceride, serum, fasting 113 mg/dL 30-200 HDL [...] 5.0-8.5 Encounters Code Encounter Date Provider Facility CPT-11024 Level 4 Est. Patient 19:08:42 [employer] Hope cohn MD PhD [facility] CPT-48466 Level 4 Est. Patient 20:04:51 CDT Hope cohn MD PhD [facility] CPT-92312 Level 3 New Patient 01:46:11 [employer] Hope landers MD PhD [facility] Procedures Code Procedure Name Date Entry Date Standard Desc ription CPT-G0008 Administration of Influenza Virus Vaccine 13:36:47 CDT CPT-29894 Fluzone High-Dose Intramuscular Suspension 11/15 13:36:47 CDT CPT-J0897 Prolia 60 mg 08:50:41 CDT CPT-14158 Abx/Therapy Injection 08:50:41 CDT CPT-44665 Bone Density 12:06:12 CDT CPT-84983 Bone Density 08:54:40 CDT CPT-OV Office Visit 15:37:02 CDT CPT-94951 Postop F/U Visit 15:47:49 CDT CPT-26736 Postop F/U Visit 15:21:02 CDT CPT-TCMH Transitional Care Mgmt-High 07:52:27 CDT 20 20/06/01 CPT-50356 Venipuncture Draw Fee 13:51:18 CDT CPT-70347 Venipuncture Draw Fee 10:14:55 [employer] CPT-72222 Venipuncture Draw Fee 13:39:45 [employer] CPT-OV Office Visit 15:11:22 [employer] CPT-12720 Venipuncture Draw Fee 09:20:49 [employer] CPT-53185 Venipuncture Draw Fee 16:52:15 [employer] CPT-75215 Venipuncture Draw Fee 10:37:24 [employer] CPT-83770 Venipuncture Draw Fee 08:21:21 [employer] CPT-87889 Venipuncture Draw Fee 08:30:20 [employer] CPT-79553 Venipuncture Draw Fee 14:53:21 [employer] CPT-02769 Venipuncture Draw Fee 09:40:56 [employer] CPT-22071 Venipuncture Draw Fee 10:30:47 [employer] CPT-45686 Venipuncture Draw Fee 10:46:17 [employer] CPT-93478 Venipuncture Draw Fee 11:12:45 [employer] CPT-19235 Venipuncture Draw Fee 09:53:33 [employer] CPT-08405 Venipuncture Draw Fee 11:53:51 [employer] CPT-30056 Venipuncture Draw Fee 10:33:50 [employer] CPT-46784 Venipuncture Draw Fee 10:05:01 [employer] CPT-12327 Venipuncture Draw Fee 14:32:52 [employer] CPT-15883 Venipuncture Draw Fee 09:46:13 [employer] CPT-44507 Venipuncture Draw Fee 11:34:27 [employer] CPT-40815 Venipuncture Draw Fee 13:17:16 [employer] CPT-96818 Venipuncture Draw Fee 12:05:39 CDT CPT-58973 Venipuncture Draw Fee 12:49:12 CDT CPT-77946 Venipuncture Draw Fee 12:37:18 CDT CPT-80015 Venipuncture Draw Fee 10:57:11 CDT CPT-13178 Venipuncture Draw Fee 13:47:40 CDT CPT-02606 Venipuncture Draw Fee 10:02:17 CDT CPT-12207 TB Tubersol 17:32:32 CDT CPT-OV Office Visit 16:21:53 CDT CPT-OV Office Visit 15:49:22 CDT CPT-OV Office Visit 17:16:31 CDT CPT-OV Office Visit 10:43:31 CDT
--- OUTSIDE RECORDS SUMMARY | 2019-02-09 13:13 | XMS REPORT | Clinical Summary ---
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 Inac tive Hope Benavidez MD PhD Hyperkalemia ICD-276.7 Inactive Hope Benavidez MD PhD Health maintenance exam ICD-V70.0 Bam Yates MD Aftercare following surgery of the teeth,oral cavity a nd digestive system, NEC ICD-V58.75 Inactive Adam Yates MD UNSPECIFIED VENOUS INSUFFICIENCY ICD-459.81 [place] ctive Adam Yates MD ADENOCARCINOMA, COLON, CECUM ICD-153.4 Dick Yates MD Medication List Medication Instructions Start Date Stop Date Generic Name NDC Status Provider Patient Instruction ZOFRAN 8 MG TABS 1 tab by mouth every 12 hours prn ONDANSETRON HCL 77215965528 Active Laura Elder Active FLAGYL 500 MG TABS 1 pill by mouth three times daily, for diarrh ea METRONIDAZOLE 21529419705 Active Hope Benavidez MD PhD A ctive MAGNESIUM GLUCONATE 250 MG TABS 1 tab daily MAG NESIUM GLUCONATE 17402836130 Active Hope Benavidez MD PhD Active DYAZIDE 37.5-25 MG CAPS 1 qd TRIAMTERENE-HC TZ 42280534381 No Longer Active Hope Benavidez MD PhD Active PROZAC 20 MG CAPS 1 q d FLUOXETINE HCL 45478 109835 No Longer Active Hope Benavidez MD PhD Active INNOPRAN XL 120 MG [id number] Take one by mouth daily PROPRANOLOL HCL SR BEADS 25754315546 Active Hope Benavidez MD PhD Active POTASSIUM CHLORIDE 20 MEQ PACK by mouth twice a day prn POTASSIUM CHLORIDE 48185980523 Active Adam Yates MD Activ e CYCLOBENZAPRINE HCL 10 MG TABS 1 tablet by mouth three times daily as needed for headaches CYCLOBENZAPRINE HCL 06261959970 Active Selena Yates MD Active SIMVASTATIN 40 MG TABS 1 qd SIMVASTATIN 004 37224777 No Longer Active Adam Yates MD Active MELOXICAM 15 MG TABS 1 qd MELOXICAM 1396696 9834 No Longer Active Adam Yates MD Active ATENOLOL 50 MG TABS 1/2 tab q other day ATENOLOL 37242793802 Active Hope Benavidez MD PhD Active OMEPRAZOLE 20 MG CPDR 1 tablet by mouth daily for GERD OMEPRAZOLE 29459832896 Active Hope Benavidez MD PhD Active IMODIUM A-D 2 MG TABS 2 onset at diarrhea and prn. LOPERAMIDE HCL 61456375257 Active Hope Benavidez MD PhD Active PHENADOZ 25 MG SUPP 1 every 4 hrs. PRN PROMETHAZINE HCL 67764381591 Active Hope Benavidez MD PhD Active PROMETHAZINE HCL 25 MG TABS 1 Q. 4 hr. PRN PROMETH AZINE HCL 15287852602 Active Hope Benavidez MD PhD Active EXCEDRIN EXTRA STRENGTH 250-250-65 MG TABS 1-2 q6h PRN headache 201 04/16/21 [id number] 46811522013 Active Hope Benavidez MD PhD Active FLAGYL 500 MG TABS 1 qid METRONIDAZOLE 54198 454095 No Longer Active Adam Yates MD Active LEVAQUIN 750 MG TABS 1 qd LEVOFLOXACIN 5486 6792709 No Longer Active Adam Yates MD Active ADULT ASPIRIN LOW STRENGTH 81 MG TBDP 1 qd A SPIRIN 79493316384 Active Hope Benavidez MD PhD Active LEVAQUIN 750 MG TABS 1 qd LEVAQUIN 750 MG T ABS 142455 LEVOFLOXACIN Inactive FLAGYL 500 MG TABS 1 qid FLAGYL 500 MG TABS 014193 METRONIDAZOLE Inactive MELOXICAM 15 MG TABS 1 qd MELOXICAM 15 MG T ABS 391348 MELOXICAM Inactive SIMVASTATIN 40 MG TABS 1 qd SIMVASTATIN 40 MG TABS 419570 SIMVASTATIN Inactive PROZAC 20 MG CAPS 1 q d PROZAC 20 MG CAPS 31 0385 FLUOXETINE HCL Inactive DYAZIDE 37.5-25 MG CAPS 1 qd DYAZIDE 37.5 -25 MG CAPS 905322 TRIAMTERENE-HCTZ Inactive Advance Directives Directive Description Start Date [...] - 3141-9 138 [lb_av] Weigh t Measured Diagnostic Results Date Name Value Unit Range Description Immunizations: Immunization Administrati on PPD RESULTS - Challenge tests PPD results in mm 0mm mm Lab Report: Basic Metabolic Panel - Chem istry sodium, serum 136 mmol/L 444-908 0140/05/02 potassium, serum 4.1 mmol/L 3.5-5.2 chloride, serum 99 mmol/L 98-107 carbon dioxide, venous blood 30.7 mmol/L 21.0-32 .0 blood glucose 79 mg/dL 65-110 calcium, serum 8.7 mg/dL 8.5-10.1 urea nitrogen, blood 11 mg/dL 7-18 creatinine, serum 1.10 mg/dL 0.60-1.30 sodium, serum 137 mmol/L 442-238 1677/11/01 potassium, serum 3.7 mmol/L 3.5-5.2 chloride, serum [...] 10*3/mm3 142-424 Lab Report: CBC W/ DIFF, YANCI ESCOTO, NITZA AEROBIC CX - Chemistry sodium, serum 137 mmol/L potassium, serum 3.8 mmol/L blood glucose 79 mg/dL creatinine, serum 1.02 mg/dL magnesium, serum 1.2 mg/dL Lab Report: CBC W/ DIFF, BMPYANCI AN AEROBIC CX - Hematology leukocyte count, [...] 11 .6-14.8 platelet count 133 10^3/MM^3 10*3/mm3 530-792 8281/01/17 leukocyte count, blood 3.1 10^3/MM^3 10*3/mm3 4.6-10.2 [...] 11 .6-14.8 platelet count 22 10^3/MM^3 10*3/mm3 309-689 5453/11/19 leukocyte count, blood 10.4 10^3/MM^3 10*3/mm3 4.6-10.2 [...] Verified By Repeat Analysis 10^3/mm ^3 10*3/mm3 028-682 1633/12/10 leukocyte count, blood 7.8 10^3/MM^3 10*3/mm3 4.6-10.2 [...] Panel - Chemistry sodium, serum 139 mmol/L 638-659 5499/12/03 potassium, serum 3.7 mmol/L 3.5-5.2 chloride, serum [...] 0.40 mg/dL 0.00-1.00 sodium, serum 137 mmol/L 695-734 9571/10/01 potassium, serum 3.5 mmol/L 3.5-5.2 chloride, serum [...] 0.60 mg/dL 0.00-1.00 sodium, serum 139 mmol/L 627-957 8783/10/17 potassium, serum 3.1 mmol/L 3.5-5.2 chloride, serum [...] serum, total 0.30 mg/dL 0.00-1.00 sodium, serum 142 mmol/L 274-001 2933/01/03 potassium, serum 3.4 mmol/L 3.5-5.2 chloride, serum [...] 0.50 mg/dL 0.00-1.00 sodium, serum 139 mmol/L 301-759 9553/01/21 potassium, serum 3.4 mmol/L 3.5-5.2 chloride, serum 99 mmol/L 98-107 carbon dioxide, venous blood 32.2 mmol/L 21.0-32 .0 blood glucose 113 mg/dL 65-110 urea nitrogen, blood 21 mg/dL 7-18 creatinine, serum 1.40 mg/dL 0.60-1.30 alanine aminotransferase (SGPT), serum 24 U/L - aspartate aminotransferase (SGOT), serum 24 U/L - alkaline phosphatase, serum 138 U/L 50-136 calcium, serum 9.1 mg/dL 8.5-10.1 bilirubin, serum, total 0.40 mg/dL 0.00-1.00 sodium, serum 138 mmol/L 065-128 8011/01/28 potassium, serum 3.2 mmol/L 3.5-5.2 chloride, serum 97 mmol/L 98-107 carbon dioxide, venous blood 27.8 mmol/L 21.0-32 .0 blood glucose 97 mg/dL 65-110 urea nitrogen, blood 16 mg/dL 7-18 creatinine, serum 1.30 mg/dL 0.60-1.30 alanine aminotransferase (SGPT), serum 13 U/L - aspartate aminotransferase (SGOT), serum 16 U/L -37 alkaline phosphatase, serum 128 U/L 50-136 calcium, serum 9.3 mg/dL 8.5-10.1 bilirubin, serum, total 0.40 mg/dL 0.00-1.00 sodium, serum 140 mmol/L 031-810 9188/01/06 potassium, serum 3.4 mmol/L 3.5-5.2 chloride, serum [...] 0.40 mg/dL 0.00-1.00 sodium, serum 136 mmol/L 834-897 8654/02/04 sodium, serum 140 mmol/L 225-677 1774/02/04 potassium, serum 3.6 mmol/L 3.5-5.2 chloride, serum [...] 0.70 mg/dL 0.00-1.00 sodium, serum 136 mmol/L 109-638 1924/04/03 potassium, serum 3.7 mmol/L 3.5-5.2 chloride, serum [...] 0.40 mg/dL 0.00-1.00 sodium, serum 136 mmol/L 972-241 1757/02/11 potassium, serum 3.1 mmol/L 3.5-5.2 chloride, serum [...] 0.50 mg/dL 0.00-1.00 sodium, serum 139 mmol/L 051-529 0366/02/18 potassium, serum 3.6 mmol/L 3.5-5.2 chloride, serum [...] 11 .6-14.8 platelet count 246 10^3/MM^3 10*3/mm3 089-061 3540/02/18 leukocyte count, blood 4.0 10^3/MM^3 10*3/mm3 4.6-10.2 [...] 11 .6-14.8 platelet count 134 10^3/MM^3 10*3/mm3 461-316 9184/10/01 red blood cell distribution width 18.2 % 11 .6-14.8 platelet count 378 10^3/MM^3 10*3/mm3 057-469 0989/02/11 leukocyte count, blood 4.8 10^3/MM^3 10*3/mm3 4.6-10.2 [...] 11 .6-14.8 platelet count 102 10^3/MM^3 10*3/mm3 152-381 8990/01/28 neutrophils as percent of blood leukocytes 59.8 % 42.2-75.2 monocytes as percent of blood leukocytes 9.4 % 1.7-9.3 lymphocytes as percent of blood leukocytes 29.1 % 20.5-51.1 erythrocyte (RBC) count 2.24 10^6/MM^3 10*6/mm3 4.04-5.4 8 hemoglobin, blood 7.7 g/dL 12.0-16.0 erythrocyte (RBC) count 3.96 10^6/MM^3 10*6/mm3 4.04-5.4 8 lymphocytes as percent of blood leukocytes 14.1 % 20.5-51.1 monocytes as percent of blood leukocytes 6.1 % 1.7-9.3 neutrophils as percent of blood leukocytes 76.0 % 42.2-75.2 leukocyte count, blood 8.3 10^3/MM^3 10*3/mm3 4.6-10.2 leukocyte count, blood 3.6 10^3/MM^3 10*3/mm3 4.6-10.2 [...] 11 .6-14.8 platelet count 70 10^3/MM^3 10*3/mm3 728-226 3341/01/21 erythrocyte (RBC) count 2.40 10^6/MM^3 10*6/mm3 4.04-5.4 8 lymphocytes as percent of blood leukocytes 17.1 % 20.5-51.1 monocytes as percent of blood leukocytes 11.7 % 1.7-9.3 neutrophils as percent of blood leukocytes 69.6 % 42.2-75.2 leukocyte count, blood 4.9 10^3/MM^3 10*3/mm3 4.6-10.2 leukocyte count, blood 4.2 10^3/MM^3 10*3/mm3 4.6-10.2 hematocrit, blood 23.7 % 36.0-46.0 mean corpuscular volume, RBC 106 fL 80-97 mean corpuscular hemoglobin, RBC 34.6 pg 27. 0-31.2 mean corpuscular hemoglobin concentration, RBC 32.6 G/DL % 31.8-35.4 red blood cell distribution width 22.5 % 11 .6-14.8 platelet count 73 10^3/MM^3 10*3/mm3 550-564 4500/01/06 leukocyte count, blood 7.6 10^3/MM^3 10*3/mm3 4.6-10.2 [...] 11 .6-14.8 platelet count 132 10^3/MM^3 10*3/mm3 435-743 0240/01/21 hemoglobin, blood 8.2 g/dL 12.0-16.0 hematocrit, blood 25.1 % 36.0-46.0 mean corpuscular volume, RBC 105 fL 80-97 mean corpuscular hemoglobin, RBC 34.4 pg 27. 0-31.2 mean corpuscular hemoglobin concentration, RBC 32.9 G/DL % 31.8-35.4 red blood cell distribution width 20.8 % 11 .6-14.8 platelet count 38 recounted 10^3/mm^3 10*3/mm3 506-225 4638/10/08 neutrophils as percent of blood leukocytes 57.9 % 42.2-75.2 monocytes as percent of blood leukocytes 14.4 % 1.7-9.3 lymphocytes as percent of blood leukocytes 25.6 % 20.5-51.1 erythrocyte (RBC) count 3.55 10^6/MM^3 10*6/mm3 4.04-5.4 8 hemoglobin, blood 10.1 g/dL 12.0-16.0 leukocyte count, blood 12.0 10^3/MM^3 10*3/mm3 4.6-10.2 hematocrit, blood 36.2 % 36.0-46.0 mean corpuscular volume, RBC 87 fL 80-97 mean corpuscular hemoglobin, RBC 28.7 pg 27. 0-31.2 mean corpuscular hemoglobin concentration, RBC 33.1 G/DL % 31.8-35.4 red blood cell distribution width 16.3 % 11 .6-14.8 platelet count 232 10^3/MM^3 10*3/mm3 101-627 0180/10/01 mean corpuscular hemoglobin concentration, RBC 32.6 G/DL % 31.8-35.4 mean corpuscular hemoglobin, RBC 28.3 pg 27. 0-31.2 mean corpuscular volume, RBC 87 fL 80-97 hematocrit, blood 34.4 % 36.0-46.0 hemoglobin, blood 11.2 g/dL 12.0-16.0 leukocyte count, blood 2.9 10^3/MM^3 10*3/mm3 4.6-10.2 hematocrit, blood 31.0 % 36.0-46.0 mean corpuscular volume, RBC 87 fL 80-97 mean corpuscular hemoglobin, RBC 28.5 pg 27. 0-31.2 mean corpuscular hemoglobin concentration, RBC 32.6 G/DL % 31.8-35.4 red blood cell distribution width 17.3 % 11 .6-14.8 platelet count 229 10^3/MM^3 10*3/mm3 879-136 2522/10/17 neutrophils as percent of blood leukocytes 64.3 % 42.2-75.2 monocytes as percent of blood leukocytes 10.4 % 1.7-9.3 lymphocytes as percent of blood leukocytes 21.3 % 20.5-51.1 erythrocyte (RBC) count 4.18 10^6/MM^3 10*6/mm3 4.04-5.4 8 hemoglobin, blood 12.0 g/dL 12.0-16.0 leukocyte count, blood 8.2 10^3/MM^3 10*3/mm3 4.6-10.2 [...] 11 .6-14.8 platelet count 98 10^3/MM^3 10*3/mm3 197-613 4189/01/03 leukocyte count, blood 8.1 10^3/MM^3 10*3/mm3 4.6-10.2 [...] Diff/Morphology - Chemistry sodium, serum 140 mmol/L 129-743 9736/12/17 potassium, serum 3.3 mmol/L 3.5-5.2 chloride, serum [...] 0.40 mg/dL 0.00-1.00 sodium, serum 138 mmol/L 714-902 5715/12/24 potassium, serum 3.7 mmol/L 3.5-5.2 chloride, serum 100 mmol/L 98-107 carbon dioxide, venous blood 27.8 mmol/L 21.0-32 .0 blood glucose 87 mg/dL 65-110 urea nitrogen, blood 25 mg/dL 7-18 creatinine, serum 1.30 mg/dL 0.60-1.30 alanine aminotransferase (SGPT), serum 24 U/L - aspartate aminotransferase (SGOT), serum 39 U/L 15-37 alkaline phosphatase, serum 256 U/L 50-136 calcium, serum 8.6 mg/dL 8.5-10.1 bilirubin, serum, total 0.50 mg/dL 0.00-1.00 sodium, serum 141 mmol/L 516-362 3336/11/25 potassium, serum 3.9 mmol/L 3.5-5.2 chloride, serum [...] serum, total 0.50 mg/dL 0.00-1.00 potassium, serum 3.0 mmol/L 3.5-5.2 chloride, serum [...] 0.50 mg/dL 0.00-1.00 sodium, serum 138 mmol/L 141-992 6624/11/05 potassium, serum 3.9 mmol/L 3.5-5.2 chloride, serum 98 mmol/L 98-107 carbon dioxide, venous blood 36.2 mmol/L 21.0-32 .0 blood glucose 92 mg/dL 65-110 urea nitrogen, blood 23 mg/dL 7-18 creatinine, serum 1.60 mg/dL 0.60-1.30 alanine aminotransferase (SGPT), serum 29 U/L 12-78 aspartate aminotransferase (SGOT), serum 26 U/L 15-37 alkaline phosphatase, serum 195 U/L 50-136 calcium, serum 8.3 mg/dL 8.5-10.1 bilirubin, serum, total 0.40 mg/dL 0.00-1.00 sodium, serum 128 mmol/L 567-908 5466/10/29 potassium, serum 2.6 mmol/L 3.5-5.2 chloride, serum [...] 0.50 mg/dL 0.00-1.00 sodium, serum 137 mmol/L 821-472 6059/11/12 potassium, serum 3.2 mmol/L 3.5-5.2 chloride, serum [...] 0.40 mg/dL 0.00-1.00 sodium, serum 141 mmol/L 544-126 6699/01/14 potassium, serum 3.9 mmol/L 3.5-5.2 chloride, serum [...] 0.50 mg/dL 0.00-1.00 sodium, serum 135 mmol/L 136-145 Lab Report: CBC W/DIFF, Comp. Metabolic Panel, [...] 11 .6-14.8 platelet count 22 10^3/MM^3 10*3/mm3 582-996 5210/11/12 leukocyte count, blood 12.1 10^3/MM^3 10*3/mm3 4.6-10.2 [...] 11 .6-14.8 platelet count 157 10^3/MM^3 10*3/mm3 740-941 5521/10/29 leukocyte count, blood 26.3 10^3/MM^3 10*3/mm3 4.6-10.2 [...] 11 .6-14.8 platelet count 268 10^3/MM^3 10*3/mm3 448-603 2534/11/05 leukocyte count, blood 16.4 10^3/MM^3 10*3/mm3 4.6-10.2 [...] 11 .6-14.8 platelet count 215 10^3/MM^3 10*3/mm3 374-886 4342/10/22 leukocyte count, blood 14.7 10^3/MM^3 10*3/mm3 4.6-10.2 [...] 11 .6-14.8 platelet count 428 10^3/MM^3 10*3/mm3 683-349 1027/11/25 leukocyte count, blood 21.1 10^3/MM^3 10*3/mm3 4.6-10.2 [...] 11 .6-14.8 platelet count 46 10^3/MM^3 10*3/mm3 742-826 1487/12/24 leukocyte count, blood 14.0 10^3/MM^3 10*3/mm3 4.6-10.2 [...] 11 .6-14.8 platelet count 66 10^3/MM^3 10*3/mm3 912-416 1328/12/17 leukocyte count, blood 18.6 10^3/MM^3 10*3/mm3 4.6-10.2 [...] 11 .6-14.8 platelet count 413 10^3/MM^3 10*3/mm3 104-672 3367/01/16 leukocyte count, blood 3.6 10^3/MM^3 10*3/mm3 4.6-10.2 [...] - Chem istry sodium, serum 141 mmol/L 147-297 6365/11/19 potassium, serum 3.9 mmol/L 3.5-5.2 chloride, serum [...] 0.50 mg/dL 0.00-1.00 sodium, serum 142 mmol/L 821-258 9620/12/10 potassium, serum 3.9 mmol/L 3.5-5.2 chloride, serum [...] Diff/Morphology - Chemistry sodium, serum 142 mmol/L 177-200 8894/12/31 potassium, serum 3.6 mmol/L 3.5-5.2 chloride, serum [...] 3.5-5.2 Encounters Code Encounter Date Provider Facility CPT-41318 Level 3 New Patient 01:46:11 [employer] Hoep landers MD PhD [facility] Procedures Code Procedure Name Date Entry Date Standard Desc ription CPT-31421 Postop F/U Visit 15:47:49 CDT CPT-97332 Postop F/U Visit 15:21:02 CDT CPT-TCM Transitional Care Mgmt-High 07:52:27 CDT 20 20/06/01 CPT-28974 Venipuncture Draw Fee 13:51:18 CDT CPT-17144 Venipuncture Draw Fee 10:14:55 [employer] CPT-44897 Venipuncture Draw Fee 13:39:45 [employer] CPT-OV Office Visit 15:11:22 [employer] CPT-14907 Venipuncture Draw Fee 09:20:49 [employer] CPT-41431 Venipuncture Draw Fee 16:52:15 [employer] CPT-51419 Venipuncture Draw Fee 10:37:24 [employer] CPT-52154 Venipuncture Draw Fee 08:21:21 [employer] CPT-78785 Venipuncture Draw Fee 08:30:20 [employer] CPT-68978 Venipuncture Draw Fee 14:53:21 [employer] CPT-63220 Venipuncture Draw Fee 09:40:56 [employer] CPT-01943 Venipuncture Draw Fee 10:30:47 [employer] CPT-33028 Venipuncture Draw Fee 10:46:17 [employer] CPT-90978 Venipuncture Draw Fee 11:12:45 [employer] CPT-60530 Venipuncture Draw Fee 09:53:33 [employer] CPT-31980 Venipuncture Draw Fee 11:53:51 [employer] CPT-20918 Venipuncture Draw Fee 10:33:50 [employer] CPT-33497 Venipuncture Draw Fee 10:05:01 [employer] CPT-56258 Venipuncture Draw Fee 14:32:52 [employer] CPT-28282 Venipuncture Draw Fee 09:46:13 [employer] CPT-49241 Venipuncture Draw Fee 11:34:27 [employer] CPT-17058 Venipuncture Draw Fee 13:17:16 [employer] CPT-20539 Venipuncture Draw Fee 12:05:39 CDT CPT-76900 Venipuncture Draw Fee 12:49:12 CDT CPT-08925 Venipuncture Draw Fee 12:37:18 CDT CPT-20664 Venipuncture Draw Fee 10:57:11 CDT CPT-53540 Venipuncture Draw Fee 13:47:40 CDT CPT-12647 Venipuncture Draw Fee 10:02:17 CDT CPT-52810 TB Tubersol 17:32:32 CDT CPT-OV Office Visit 16:21:53 CDT CPT-OV Office Visit 15:49:22 CDT CPT-OV Office Visit 17:16:31 CDT CPT-OV Office Visit 10:43:31 CDT
--- OUTSIDE RECORDS SUMMARY | 2019-02-09 13:14 | XMS REPORT | Clinical Summary ---
Author Author Renaldo, Florecita Munoz Organization [facility] Address Unknown Phone Unavailable Allergies, Adverse [...] (age-related) (natural) V49.8 1 Active Citlaly Roland [facility] Asymptomatic postmenopausal status (age- related) (natural) Diarrhea 787.91 Active Hope Benavidez MD PhD Diarrhea Osteoporosis 733.00 Active Hope Benavidez MD PhD Osteoporosis, unspecified ABDOMINAL PAIN, RIGHT LOWER QUADRANT ICD-789.03 Inactive Kina Joshua APRN ADENOCARCINOMA, COLON, CECUM ICD-153.4 Dick Yates MD ABDOMINAL PAIN, GENERALIZED ICD-789.07 Inactive Hope Benavidez MD PhD FEVER UNSPECIFIED ICD-780.60 Inactive Hope cohn MD PhD UNSPECIFIED VENOUS INSUFFICIENCY ICD-459.81 Gilbert ctive Adam Yates MD ADENOCARCINOMA, ASCENDING COLON ICD-153.6 Inac tive Hope Benavidez MD PhD Hyperkalemia ICD-276.7 Inactive Hope Benavidez MD PhD Health maintenance exam ICD-V70.0 Bam Yates MD Aftercare following surgery of the teeth,oral cavity a nd digestive system, NEC ICD-V58.75 Inactive Adam Yates MD Colon cancer ICD-153.9 Inactive Adam luna MD Medication List Medication Instructions Start Date Stop Date Generic Name [facility] Status Provider Patient Instruction PROLIA 60 MG/ML SOLN 1 shot every 6 months for osteoprosis DENOSUMAB 73280627541 Active Hope Benavidez MD PhD Active CALCIUM + D + K 750-500-40 MG-UNT-MCG TABS 1 tab by mouth tw ice daily CALCIUM-VITAMIN D-VITAMIN K 31967278121 Active Hope landers MD PhD Active DAILY VALUE MULTIVITAMIN TABS 1 tab by mouth twice daily MULTIPLE VITAMIN 58195029309 Active Hope Benavidez MD PhD Active FISH OIL 306 MG CAPS 1 tab by mouth three times daily OMEGA-3 FATTY ACIDS 67812352816 Active Hope Benavidez MD PhD Active LUTEIN 10 MG TABS 1 tab daily LUTEIN 89358719299 Act cash Hope Benavidez MD PhD Active FLORANEX PACK 1 pack three times daily, for bowel health LACTOBACILLUS 62196650559 Active Hope Benavidez MD PhD Active LOMOTIL 2.5-0.025 MG TABS 1 tab by mouth prn DIPHENOXYLATE-ATROPINE 50895818397 Active Hpoe Benavidez MD PhD Active TRIAMTERENE-HCTZ 37.5-25 MG TABS 1 tab by mouth daily TRIAMTERENE-HCTZ 69537163454 Active Hope Benavidez MD PhD Acti ve IRON 325 (65 FE) MG TABS 1 tab daily FERROUS SULF ATE 16997802828 Active Hope Benavidez MD PhD Active MAGNESIUM GLUCONATE 250 MG TABS 1 tab tid MAGN ESIUM GLUCONATE 70842700658 Active Adam Yates MD Active ATENOLOL 50 MG TABS 1/2 tab q other day m-w-f ATE NOLOL 29783077665 Active Adam Yates MD Active PROPRANOLOL HCL 80 MG TABS 1 tab tue. and thur. PROPRANOLOL HCL 56045869439 Active Adam Yates MD Active CYCLOBENZAPRINE HCL 10 MG TABS 1 tablet by mouth three times daily as needed for headaches CYCLOBENZAPRINE HCL 24195346842 No Longe r Active Adam Yates MD Active OMEPRAZOLE 20 MG CPDR 1 tablet by mouth daily for GERD OMEPRAZOLE 25006735206 No Longer Active Adam Yates MD A ctive ZOFRAN 8 MG TABS 1 tab by mouth every 12 hours prn 201 05/16/09 ONDANSETRON HCL 90432214501 No Longer Active Adam Yates MD Active PHENADOZ 25 MG SUPP 1 every 4 hrs. PRN PROMETHA ZINE HCL 50039713391 No Longer Active Adam Yates MD Active POTASSIUM CHLORIDE 20 MEQ PACK by mouth twice a day prn POTASSIUM CHLORIDE 90477288855 No Longer Active Adam Yates MD Active PROMETHAZINE HCL 25 MG TABS 1 Q. 4 hr. PRN PROM ETHAZINE HCL 28631996881 No Longer Active Adam Yates MD Active INNOPRAN XL 120 MG [id number] Take one by mouth daily 2 PROPRANOLOL HCL SR BEADS 70404097631 No Longer Active Adam Yates MD A ctive FLAGYL 500 MG TABS 1 pill by mouth three times daily, for diarrh ea METRONIDAZOLE 92868653158 No Longer Active Hope Benavidez MD PhD Active DYAZIDE 37.5-25 MG CAPS 1 qd TRIAMTERENE-HC TZ 70473743729 No Longer Active Hope Benavidez MD PhD Active PROZAC 20 MG CAPS 1 q d FLUOXETINE HCL 39708 560782 No Longer Active Hope Benavidez MD PhD Active SIMVASTATIN 40 MG TABS 1 qd SIMVASTATIN 004 93425345 No Longer Active Adam Yates MD Active MELOXICAM 15 MG TABS 1 qd MELOXICAM 4202534 9992 No Longer Active Adam Yates MD Active IMODIUM A-D 2 MG TABS 2 onset at diarrhea and prn. LOPERAMIDE HCL 95820686918 Active Hope Benavidez MD PhD Active EXCEDRIN EXTRA STRENGTH 250-250-65 MG TABS 1-2 q6h PRN headache 201 04/16/21 [id number] 93304494582 Active Hope Benavidez MD PhD Active FLAGYL 500 MG TABS 1 qid METRONIDAZOLE 86270 712474 No Longer Active Adam Yates MD Active LEVAQUIN 750 MG TABS 1 qd LEVOFLOXACIN 5486 3534089 No Longer Active Adam Yates MD Active ADULT ASPIRIN LOW STRENGTH 81 MG TBDP 1 qd A SPIRIN 47044052691 Active Hope Benavidez MD PhD Active LEVAQUIN 750 MG TABS 1 qd LEVAQUIN 750 MG T ABS 472966 LEVOFLOXACIN Inactive FLAGYL 500 MG TABS 1 qid FLAGYL 500 MG TABS 023153 METRONIDAZOLE Inactive MELOXICAM 15 MG TABS 1 qd MELOXICAM 15 MG T ABS 060331 MELOXICAM Inactive SIMVASTATIN 40 MG TABS 1 qd SIMVASTATIN 40 MG TABS 978979 SIMVASTATIN Inactive PROZAC 20 MG CAPS 1 q d PROZAC 20 MG CAPS 31 0385 FLUOXETINE HCL Inactive DYAZIDE 37.5-25 MG CAPS 1 qd DYAZIDE 37.5 -25 MG CAPS 336227 TRIAMTERENE-HCTZ Inactive INNOPRAN XL 120 MG [id number] Take one by mouth daily 2 INNOPRAN XL 120 MG [id number] PROPRANOLOL HCL SR BEADS Inactive PROMETHAZINE HCL 25 MG TABS 1 Q. 4 hr. PRN PROMETHAZINE HCL 25 MG TABS 252912 PROMETHAZINE HCL Inactive POTASSIUM CHLORIDE 20 MEQ PACK by mouth twice a day prn POTASSIUM CHLORIDE 20 MEQ PACK 279739 POTASSIUM CHLORIDE Inactive PHENADOZ 25 MG SUPP 1 every 4 hrs. PRN PHENADOZ 2 5 MG SUPP 992990 PROMETHAZINE HCL Inactive ZOFRAN 8 MG TABS 1 tab by mouth every 12 hours prn 201 05/16/09 ZOFRAN 8 MG TABS 031293 ONDANSETRON HCL Inactive OMEPRAZOLE 20 MG CPDR 1 tablet by mouth daily for GERD OMEPRAZOLE 20 MG CPDR 259086 OMEPRAZOLE Inactive CYCLOBENZAPRINE HCL 10 MG TABS 1 tablet by mouth three times daily as needed for headaches CYCLOBENZAPRINE HCL 10 MG TABS 904229 CYCLOBENZAPRINE HCL Inactive FLAGYL 500 MG TABS 1 pill by mouth three times daily, for diarrh ea FLAGYL 500 MG TABS 055961 METRONIDAZOLE Inactive Advance Directives Directive Description Start [...] - 3141-9 117.56 [lb_av] Weigh t Measured Diagnostic Results Date Name Value Unit Range Description Immunizations: Immunization Administrati on PPD RESULTS - Challenge tests PPD results in mm 0mm mm Lab Report: Basic Metabolic Panel - Chem istry sodium, serum 137 mmol/L 576-706 4654/11/01 potassium, serum 3.7 mmol/L 3.5-5.2 chloride, serum 100 mmol/L 98-107 carbon dioxide, venous blood 31.8 mmol/L 21.0-32 .0 blood glucose 98 mg/dL 65-110 calcium, serum 8.6 mg/dL 8.5-10.1 urea nitrogen, blood 23 mg/dL 7-18 creatinine, serum 1.50 mg/dL 0.60-1.30 sodium, serum 136 mmol/L 400-951 6710/05/02 potassium, serum 4.1 mmol/L 3.5-5.2 chloride, serum 99 mmol/L 98-107 carbon dioxide, venous blood 30.7 mmol/L 21.0-32 .0 blood glucose 79 mg/dL 65-110 calcium, serum 8.7 mg/dL 8.5-10.1 urea nitrogen, blood 11 mg/dL 7-18 creatinine, serum 1.10 mg/dL 0.60-1.30 Lab Report: [facility] - Chemistry sodium, serum 141 mmol/L potassium, serum 4.2 mmol/L blood glucose 66 mg/dL creatinine, serum 1.16 mg/dL Lab Report: [facility] - Chemistry sodium, serum 137 mmol/L potassium, serum 3.8 mmol/L blood glucose 79 mg/dL creatinine, serum 1.02 mg/dL magnesium, serum 1.2 mg/dL Lab Report: CBC W/ DIFF, [facility], [facility], AN AEROBIC CX - Hematology leukocyte [...] 11 .6-14.8 platelet count 133 10^3/MM^3 10*3/mm3 460-934 5096/01/17 leukocyte count, blood 3.1 10^3/MM^3 10*3/mm3 4.6-10.2 [...] 11 .6-14.8 platelet count 22 10^3/MM^3 10*3/mm3 384-574 8560/11/19 leukocyte count, blood 10.4 10^3/MM^3 10*3/mm3 4.6-10.2 [...] Verified By Repeat Analysis 10^3/mm ^3 10*3/mm3 175-184 1108/12/10 leukocyte count, blood 7.8 10^3/MM^3 10*3/mm3 4.6-10.2 [...] Panel - Chemistry sodium, serum 139 mmol/L 857-206 7376/12/03 potassium, serum 3.7 mmol/L 3.5-5.2 chloride, serum [...] 0.40 mg/dL 0.00-1.00 sodium, serum 142 mmol/L 649-636 2409/01/03 potassium, serum 3.4 mmol/L 3.5-5.2 chloride, serum [...] 0.50 mg/dL 0.00-1.00 sodium, serum 137 mmol/L 854-415 7030/10/01 potassium, serum 3.5 mmol/L 3.5-5.2 chloride, serum [...] 0.60 mg/dL 0.00-1.00 sodium, serum 136 mmol/L 418-539 4024/10/08 potassium, serum 3.1 mmol/L 3.5-5.2 chloride, serum [...] 0.60 mg/dL 0.00-1.00 sodium, serum 139 mmol/L 336-235 3948/10/17 potassium, serum 3.1 mmol/L 3.5-5.2 chloride, serum [...] 0.30 mg/dL 0.00-1.00 sodium, serum 140 mmol/L 313-156 3449/01/06 potassium, serum 3.4 mmol/L 3.5-5.2 chloride, serum [...] 0.40 mg/dL 0.00-1.00 sodium, serum 139 mmol/L 644-663 1488/01/21 potassium, serum 3.4 mmol/L 3.5-5.2 chloride, serum [...] 0.40 mg/dL 0.00-1.00 sodium, serum 138 mmol/L 154-838 8080/01/28 potassium, serum 3.2 mmol/L 3.5-5.2 chloride, serum [...] 0.40 mg/dL 0.00-1.00 sodium, serum 140 mmol/L 928-775 8579/02/04 potassium, serum 3.6 mmol/L 3.5-5.2 chloride, serum [...] 0.70 mg/dL 0.00-1.00 sodium, serum 136 mmol/L 576-079 6144/02/11 potassium, serum 3.1 mmol/L 3.5-5.2 chloride, serum [...] 0.50 mg/dL 0.00-1.00 sodium, serum 138 mmol/L 795-968 5737/08/14 potassium, serum 4.0 mmol/L 3.5-5.2 chloride, serum [...] 0.40 mg/dL 0.00-1.00 sodium, serum 136 mmol/L 071-959 1461/04/03 potassium, serum 3.7 mmol/L 3.5-5.2 chloride, serum [...] 0.40 mg/dL 0.00-1.00 sodium, serum 139 mmol/L 194-752 5306/02/18 potassium, serum 3.6 mmol/L 3.5-5.2 chloride, serum [...] 11 .6-14.8 platelet count 246 10^3/MM^3 10*3/mm3 783-069 0938/08/14 leukocyte count, blood 5.8 10^3/MM^3 10*3/mm3 4.6-10.2 [...] 11 .6-14.8 platelet count 193 10^3/MM^3 10*3/mm3 346-920 5126/02/18 leukocyte count, blood 4.0 10^3/MM^3 10*3/mm3 4.6-10.2 [...] 11 .6-14.8 platelet count 134 10^3/MM^3 10*3/mm3 492-582 6069/02/11 leukocyte count, blood 4.8 10^3/MM^3 10*3/mm3 4.6-10.2 [...] 11 .6-14.8 platelet count 102 10^3/MM^3 10*3/mm3 105-752 3015/02/04 leukocyte count, blood 3.6 10^3/MM^3 10*3/mm3 4.6-10.2 [...] 11 .6-14.8 platelet count 70 10^3/MM^3 10*3/mm3 128-546 1945/01/28 leukocyte count, blood 4.2 10^3/MM^3 10*3/mm3 4.6-10.2 [...] 11 .6-14.8 platelet count 73 10^3/MM^3 10*3/mm3 651-183 7234/01/03 leukocyte count, blood 8.1 10^3/MM^3 10*3/mm3 4.6-10.2 [...] 11 .6-14.8 platelet count 96 10^3/MM^3 10*3/mm3 420-543 3995/01/21 leukocyte count, blood 4.9 10^3/MM^3 10*3/mm3 4.6-10.2 [...] .6-14.8 platelet count 38 recounted 10^3/mm^3 10*3/mm3 309-009 4849/10/08 leukocyte count, blood 2.9 10^3/MM^3 10*3/mm3 4.6-10.2 [...] 11 .6-14.8 platelet count 229 10^3/MM^3 10*3/mm3 795-707 0204/10/17 leukocyte count, blood 12.0 10^3/MM^3 10*3/mm3 4.6-10.2 [...] 11 .6-14.8 platelet count 232 10^3/MM^3 10*3/mm3 991-645 5419/10/01 leukocyte count, blood 8.3 10^3/MM^3 10*3/mm3 4.6-10.2 [...] 11 .6-14.8 platelet count 378 10^3/MM^3 10*3/mm3 759-195 1472/01/06 leukocyte count, blood 7.6 10^3/MM^3 10*3/mm3 4.6-10.2 [...] 11 .6-14.8 platelet count 132 10^3/MM^3 10*3/mm3 128-513 0865/12/03 leukocyte count, blood 8.2 10^3/MM^3 10*3/mm3 4.6-10.2 [...] Diff/Morphology - Chemistry sodium, serum 141 mmol/L 781-429 4542/11/25 potassium, serum 3.9 mmol/L 3.5-5.2 chloride, serum [...] 0.50 mg/dL 0.00-1.00 sodium, serum 137 mmol/L 265-277 9457/11/12 potassium, serum 3.2 mmol/L 3.5-5.2 chloride, serum [...] 0.40 mg/dL 0.00-1.00 sodium, serum 140 mmol/L 462-737 4921/12/17 potassium, serum 3.3 mmol/L 3.5-5.2 chloride, serum [...] 0.40 mg/dL 0.00-1.00 sodium, serum 138 mmol/L 176-546 8013/12/24 potassium, serum 3.7 mmol/L 3.5-5.2 chloride, serum [...] 0.50 mg/dL 0.00-1.00 sodium, serum 135 mmol/L 540-250 6752/10/22 potassium, serum 3.0 mmol/L 3.5-5.2 chloride, serum [...] 0.50 mg/dL 0.00-1.00 sodium, serum 138 mmol/L 474-209 0057/11/05 potassium, serum 3.9 mmol/L 3.5-5.2 chloride, serum [...] 0.40 mg/dL 0.00-1.00 sodium, serum 128 mmol/L 312-726 4275/10/29 potassium, serum 2.6 mmol/L 3.5-5.2 chloride, serum [...] 0.50 mg/dL 0.00-1.00 sodium, serum 141 mmol/L 172-064 9788/01/14 potassium, serum 3.9 mmol/L 3.5-5.2 chloride, serum [...] 11 .6-14.8 platelet count 22 10^3/MM^3 10*3/mm3 264-536 6658/10/22 leukocyte count, blood 14.7 10^3/MM^3 10*3/mm3 4.6-10.2 [...] 11 .6-14.8 platelet count 428 10^3/MM^3 10*3/mm3 767-587 0972/11/05 leukocyte count, blood 16.4 10^3/MM^3 10*3/mm3 4.6-10.2 [...] 11 .6-14.8 platelet count 215 10^3/MM^3 10*3/mm3 011-357 3330/11/12 leukocyte count, blood 12.1 10^3/MM^3 10*3/mm3 4.6-10.2 [...] 11 .6-14.8 platelet count 157 10^3/MM^3 10*3/mm3 265-974 5932/10/29 leukocyte count, blood 26.3 10^3/MM^3 10*3/mm3 4.6-10.2 [...] 11 .6-14.8 platelet count 268 10^3/MM^3 10*3/mm3 705-996 1362/12/24 leukocyte count, blood 14.0 10^3/MM^3 10*3/mm3 4.6-10.2 [...] 11 .6-14.8 platelet count 66 10^3/MM^3 10*3/mm3 399-436 4235/11/25 leukocyte count, blood 21.1 10^3/MM^3 10*3/mm3 4.6-10.2 [...] 11 .6-14.8 platelet count 46 10^3/MM^3 10*3/mm3 981-845 1613/12/17 leukocyte count, blood 18.6 10^3/MM^3 10*3/mm3 4.6-10.2 [...] - Chem istry sodium, serum 141 mmol/L 199-862 0736/11/19 potassium, serum 3.9 mmol/L 3.5-5.2 chloride, serum [...] 0.50 mg/dL 0.00-1.00 sodium, serum 142 mmol/L 207-538 2921/12/10 potassium, serum 3.9 mmol/L 3.5-5.2 chloride, serum [...] Diff/Morphology - Chemistry sodium, serum 142 mmol/L 848-500 6583/12/31 potassium, serum 3.6 mmol/L 3.5-5.2 chloride, serum [...] Panel - Chemistry cholesterol, serum 209 mg/dL 525-970 7104/09/11 triglyceride, serum, fasting 113 mg/dL 30-200 HDL cholesterol, serum 50 mg/dL 32-96 LDL cholesterol, serum 136 mg/dL 0-130 Encounters Code Encounter Date Provider Facility CPT-78648 Level 4 Est. Patient 20:04:51 CDT Hope cohn MD PhD [facility] CPT-14136 Level 3 New Patient 01:46:11 [employer] Hope landers MD PhD [facility] Procedures Code Procedure Name Date Entry Date Standard Desc ription CPT-94853 Bone Density 08:54:40 CDT CPT-OV Office Visit 15:37:02 CDT CPT-45440 Postop F/U Visit 15:47:49 CDT CPT-86792 Postop F/U Visit 15:21:02 CDT CPT-TCMH Transitional Care Mgmt-High 07:52:27 CDT 20 20/06/01 CPT-21351 Venipuncture Draw Fee 13:51:18 CDT CPT-89413 Venipuncture Draw Fee 10:14:55 [employer] CPT-33595 Venipuncture Draw Fee 13:39:45 [employer] CPT-OV Office Visit 15:11:22 [employer] CPT-57434 Venipuncture Draw Fee 09:20:49 [employer] CPT-63707 Venipuncture Draw Fee 16:52:15 [employer] CPT-84192 Venipuncture Draw Fee 10:37:24 [employer] CPT-52107 Venipuncture Draw Fee 08:21:21 [employer] CPT-42001 Venipuncture Draw Fee 08:30:20 [employer] CPT-72788 Venipuncture Draw Fee 14:53:21 [employer] CPT-08851 Venipuncture Draw Fee 09:40:56 [employer] CPT-09264 Venipuncture Draw Fee 10:30:47 [employer] CPT-11651 Venipuncture Draw Fee 10:46:17 [employer] CPT-22407 Venipuncture Draw Fee 11:12:45 [employer] CPT-36338 Venipuncture Draw Fee 09:53:33 [employer] CPT-42390 Venipuncture Draw Fee 11:53:51 [employer] CPT-73237 Venipuncture Draw Fee 10:33:50 [employer] CPT-27760 Venipuncture Draw Fee 10:05:01 [employer] CPT-32554 Venipuncture Draw Fee 14:32:52 [employer] CPT-87209 Venipuncture Draw Fee 09:46:13 [employer] CPT-53704 Venipuncture Draw Fee 11:34:27 [employer] CPT-54214 Venipuncture Draw Fee 13:17:16 [employer] CPT-30161 Venipuncture Draw Fee 12:05:39 CDT CPT-14792 Venipuncture Draw Fee 12:49:12 CDT CPT-88368 Venipuncture Draw Fee 12:37:18 CDT CPT-70105 Venipuncture Draw Fee 10:57:11 CDT CPT-94235 Venipuncture Draw Fee 13:47:40 CDT CPT-10085 Venipuncture Draw Fee 10:02:17 CDT CPT-78288 TB Tubersol 17:32:32 CDT CPT-OV Office Visit 16:21:53 CDT CPT-OV Office Visit 15:49:22 CDT CPT-OV Office Visit 17:16:31 CDT CPT-OV Office Visit 10:43:31 CDT
--- OUTSIDE RECORDS SUMMARY | 2019-02-09 13:14 | XMS REPORT | Clinical Summary ---
Author Author Renaldo, Florecita Munoz Organization [facility] Address Unknown Phone Allergies, Adverse Reactions, [...] MG CAPS 1 q d FLUOXETINE HCL 97110 739783 No Longer Active Hope Benavidez MD PhD Active INNOPRAN XL 120 MG [id number] Take one by mouth daily PROPRANOLOL HCL SR BEADS 92931573965 Active Hope Benavidez MD PhD Active POTASSIUM CHLORIDE 20 MEQ PACK by mouth twice a day prn POTASSIUM CHLORIDE 88335034005 Active Adam Yates MD Activ e CYCLOBENZAPRINE HCL 10 MG TABS 1 tablet by mouth three times daily as needed for headaches CYCLOBENZAPRINE HCL 08510750410 Active Selena Yates MD Active SIMVASTATIN 40 MG TABS 1 qd SIMVASTATIN 004 07416353 No Longer Active Adam Yates MD Active MELOXICAM 15 MG TABS 1 qd MELOXICAM 9817372 8266 No Longer Active Adam Yates MD Active ATENOLOL 50 MG TABS 1/2 tab q other day ATENOLOL 08160582855 Active Hope Benavidez MD PhD Active OMEPRAZOLE 20 MG CPDR 1 tablet by mouth daily for GERD OMEPRAZOLE 19014676332 Active Hope Benavidez MD PhD Active IMODIUM A-D 2 MG TABS 2 onset at diarrhea and prn. LOPERAMIDE HCL 82950063337 Active Hope Benavidez MD PhD Active PHENADOZ 25 MG SUPP 1 every 4 hrs. PRN PROMETHAZINE HCL 01490074667 Active Hope Benavidez MD PhD Active PROMETHAZINE HCL 25 MG TABS 1 Q. 4 hr. PRN PROMETH AZINE HCL 91908944773 Active Hope Benavidez MD PhD Active EXCEDRIN EXTRA STRENGTH 250-250-65 MG TABS 1-2 q6h PRN headache 201 04/16/21 [id number] 74839619624 Active Hope Benavidez MD PhD Active ZOFRAN 4 MG TABS 1 q 6 hr prn ONDANSETRON HCL 6003941 7002 Active Fay Alberts Active FLAGYL 500 MG TABS 1 qid METRONIDAZOLE 30216 810899 No Longer Active Adam Yates MD Active LEVAQUIN 750 MG TABS 1 qd LEVOFLOXACIN 5486 6654608 No Longer Active Adam Yates MD Active DYAZIDE 37.5-25 MG CAPS 1 qd TRIAMTERENE-HCTZ 5886 8865001 Active Hope Benavidez MD PhD Active ADULT ASPIRIN LOW STRENGTH 81 MG TBDP 1 qd A SPIRIN 27845255343 Active Hope Benavidez MD PhD Active LEVAQUIN 750 MG TABS 1 qd LEVAQUIN 750 MG T ABS 575601 LEVOFLOXACIN Inactive FLAGYL 500 MG TABS 1 qid FLAGYL 500 MG TABS 342811 METRONIDAZOLE Inactive MELOXICAM 15 MG TABS 1 qd MELOXICAM 15 MG T ABS 440200 MELOXICAM Inactive SIMVASTATIN 40 MG TABS 1 qd SIMVASTATIN 40 MG TABS 869199 SIMVASTATIN Inactive PROZAC 20 MG CAPS 1 [...] - Chem istry sodium, serum 137 mmol/L 093-544 6548/11/01 potassium, serum 3.7 mmol/L 3.5-5.2 chloride, serum 100 mmol/L 98-107 carbon dioxide, venous blood 31.8 mmol/L 21.0-32 .0 blood glucose 98 mg/dL 65-110 calcium, serum 8.6 mg/dL 8.5-10.1 urea nitrogen, blood 23 mg/dL 7-18 creatinine, serum 1.50 mg/dL 0.60-1.30 sodium, serum 136 mmol/L 286-389 8115/05/02 potassium, serum 4.1 mmol/L 3.5-5.2 chloride, serum [...] 11 .6-14.8 platelet count 133 10^3/MM^3 10*3/mm3 765-961 9328/01/17 leukocyte count, blood 3.1 10^3/MM^3 10*3/mm3 4.6-10.2 [...] 11 .6-14.8 platelet count 22 10^3/MM^3 10*3/mm3 424-163 6439/11/19 leukocyte count, blood 10.4 10^3/MM^3 10*3/mm3 4.6-10.2 [...] Verified By Repeat Analysis 10^3/mm ^3 10*3/mm3 385-951 1200/12/10 leukocyte count, blood 7.8 10^3/MM^3 10*3/mm3 4.6-10.2 [...] Panel - Chemistry sodium, serum 139 mmol/L 691-353 2855/12/03 potassium, serum 3.7 mmol/L 3.5-5.2 chloride, serum [...] 0.40 mg/dL 0.00-1.00 sodium, serum 137 mmol/L 909-883 4320/10/01 potassium, serum 3.5 mmol/L 3.5-5.2 chloride, serum [...] 0.60 mg/dL 0.00-1.00 sodium, serum 139 mmol/L 581-347 9924/10/17 potassium, serum 3.1 mmol/L 3.5-5.2 chloride, serum [...] 0.30 mg/dL 0.00-1.00 sodium, serum 139 mmol/L 803-680 0134/01/21 potassium, serum 3.4 mmol/L 3.5-5.2 chloride, serum [...] 0.40 mg/dL 0.00-1.00 sodium, serum 138 mmol/L 597-788 1591/01/28 potassium, serum 3.2 mmol/L 3.5-5.2 chloride, serum [...] 0.40 mg/dL 0.00-1.00 sodium, serum 140 mmol/L 651-278 4226/02/04 potassium, serum 3.6 mmol/L 3.5-5.2 chloride, serum [...] 0.70 mg/dL 0.00-1.00 sodium, serum 142 mmol/L 701-729 1155/01/03 potassium, serum 3.4 mmol/L 3.5-5.2 chloride, serum [...] 0.50 mg/dL 0.00-1.00 sodium, serum 140 mmol/L 219-673 1853/01/06 potassium, serum 3.4 mmol/L 3.5-5.2 chloride, serum [...] 0.40 mg/dL 0.00-1.00 sodium, serum 136 mmol/L 489-437 7915/04/03 sodium, serum 136 mmol/L 296-748 6385/04/03 potassium, serum 3.7 mmol/L 3.5-5.2 chloride, serum [...] 0.40 mg/dL 0.00-1.00 sodium, serum 136 mmol/L 313-900 5005/02/11 potassium, serum 3.1 mmol/L 3.5-5.2 chloride, serum [...] 0.50 mg/dL 0.00-1.00 sodium, serum 139 mmol/L 881-363 4934/02/18 potassium, serum 3.6 mmol/L 3.5-5.2 chloride, serum [...] 11 .6-14.8 platelet count 246 10^3/MM^3 10*3/mm3 296-317 2590/02/18 leukocyte count, blood 4.0 10^3/MM^3 10*3/mm3 4.6-10.2 [...] 11 .6-14.8 platelet count 134 10^3/MM^3 10*3/mm3 355-393 1495/10/01 erythrocyte (RBC) count 3.96 10^6/MM^3 10*6/mm3 4.04-5.4 [...] 11 .6-14.8 platelet count 96 10^3/MM^3 10*3/mm3 461-618 7775/01/06 leukocyte count, blood 7.6 10^3/MM^3 10*3/mm3 4.6-10.2 [...] 11 .6-14.8 platelet count 132 10^3/MM^3 10*3/mm3 645-353 3994/02/11 leukocyte count, blood 4.8 10^3/MM^3 10*3/mm3 4.6-10.2 [...] 11 .6-14.8 platelet count 102 10^3/MM^3 10*3/mm3 703-327 1696/02/04 leukocyte count, blood 3.6 10^3/MM^3 10*3/mm3 4.6-10.2 [...] 11 .6-14.8 platelet count 70 10^3/MM^3 10*3/mm3 988-378 2615/01/28 leukocyte count, blood 4.2 10^3/MM^3 10*3/mm3 4.6-10.2 [...] 11 .6-14.8 platelet count 73 10^3/MM^3 10*3/mm3 788-107 6730/01/21 leukocyte count, blood 4.9 10^3/MM^3 10*3/mm3 4.6-10.2 [...] .6-14.8 platelet count 38 recounted 10^3/mm^3 10*3/mm3 013-385 9266/10/08 leukocyte count, blood 2.9 10^3/MM^3 10*3/mm3 4.6-10.2 [...] 11 .6-14.8 platelet count 229 10^3/MM^3 10*3/mm3 737-688 2224/10/17 leukocyte count, blood 12.0 10^3/MM^3 10*3/mm3 4.6-10.2 [...] 11 .6-14.8 platelet count 232 10^3/MM^3 10*3/mm3 755-332 5107/10/01 hemoglobin, blood 11.2 g/dL 12.0-16.0 hematocrit, blood 34.4 % 36.0-46.0 mean corpuscular volume, RBC 87 fL 80-97 mean corpuscular hemoglobin, RBC 28.3 pg 27. 0-31.2 mean corpuscular hemoglobin concentration, RBC 32.6 G/DL % 31.8-35.4 red blood cell distribution width 18.2 % 11 .6-14.8 platelet count 378 10^3/MM^3 10*3/mm3 213-257 0728/12/03 leukocyte count, blood 8.2 10^3/MM^3 10*3/mm3 4.6-10.2 [...] Diff/Morphology - Chemistry sodium, serum 141 mmol/L 428-866 8460/11/25 potassium, serum 3.9 mmol/L 3.5-5.2 chloride, serum [...] 0.50 mg/dL 0.00-1.00 sodium, serum 137 mmol/L 750-184 3624/11/12 potassium, serum 3.2 mmol/L 3.5-5.2 chloride, serum [...] 0.40 mg/dL 0.00-1.00 sodium, serum 140 mmol/L 943-165 6421/12/17 potassium, serum 3.3 mmol/L 3.5-5.2 chloride, serum [...] 0.40 mg/dL 0.00-1.00 sodium, serum 138 mmol/L 685-521 8709/12/24 potassium, serum 3.7 mmol/L 3.5-5.2 chloride, serum [...] 0.50 mg/dL 0.00-1.00 sodium, serum 138 mmol/L 503-694 3531/11/05 potassium, serum 3.9 mmol/L 3.5-5.2 chloride, serum [...] 0.40 mg/dL 0.00-1.00 sodium, serum 135 mmol/L 528-552 1316/10/22 potassium, serum 3.0 mmol/L 3.5-5.2 chloride, serum [...] 0.50 mg/dL 0.00-1.00 sodium, serum 128 mmol/L 199-159 2727/10/29 potassium, serum 2.6 mmol/L 3.5-5.2 chloride, serum [...] 0.50 mg/dL 0.00-1.00 sodium, serum 141 mmol/L 826-425 8815/01/14 potassium, serum 3.9 mmol/L 3.5-5.2 chloride, serum [...] 11 .6-14.8 platelet count 22 10^3/MM^3 10*3/mm3 700-965 5089/10/22 leukocyte count, blood 14.7 10^3/MM^3 10*3/mm3 4.6-10.2 [...] 11 .6-14.8 platelet count 428 10^3/MM^3 10*3/mm3 230-426 6425/10/29 leukocyte count, blood 26.3 10^3/MM^3 10*3/mm3 4.6-10.2 [...] 11 .6-14.8 platelet count 268 10^3/MM^3 10*3/mm3 053-750 1649/11/12 leukocyte count, blood 12.1 10^3/MM^3 10*3/mm3 4.6-10.2 [...] 11 .6-14.8 platelet count 157 10^3/MM^3 10*3/mm3 128-053 6146/11/05 leukocyte count, blood 16.4 10^3/MM^3 10*3/mm3 4.6-10.2 [...] 11 .6-14.8 platelet count 215 10^3/MM^3 10*3/mm3 427-594 0087/12/24 leukocyte count, blood 14.0 10^3/MM^3 10*3/mm3 4.6-10.2 [...] 11 .6-14.8 platelet count 66 10^3/MM^3 10*3/mm3 477-307 8926/12/17 leukocyte count, blood 18.6 10^3/MM^3 10*3/mm3 4.6-10.2 [...] 11 .6-14.8 platelet count 75 10^3/MM^3 10*3/mm3 690-660 9017/11/25 leukocyte count, blood 21.1 10^3/MM^3 10*3/mm3 4.6-10.2 [...] 11 .6-14.8 platelet count 413 10^3/MM^3 10*3/mm3 439-764 9774/01/16 leukocyte count, blood 3.6 10^3/MM^3 10*3/mm3 4.6-10.2 [...] - Chem istry sodium, serum 141 mmol/L 002-593 5819/11/19 potassium, serum 3.9 mmol/L 3.5-5.2 chloride, serum [...] 0.50 mg/dL 0.00-1.00 sodium, serum 142 mmol/L 071-894 5888/12/10 potassium, serum 3.9 mmol/L 3.5-5.2 chloride, serum [...] Diff/Morphology - Chemistry sodium, serum 142 mmol/L 784-545 7616/12/31 potassium, serum 3.6 mmol/L 3.5-5.2 chloride, serum [...] 3.5-5.2 Encounters Code Encounter Date Provider Facility CPT-84757 Level 3 New Patient 01:46:11 [employer] Hope landers MD PhD [facility] Procedures Code Procedure Name Date Entry Date Standard Desc ription CPT-42094 Postop F/U Visit 15:21:02 CDT CPT-TCMH Transitional Care Mgmt-High 07:52:27 CDT 20 20/06/01 CPT-61443 Venipuncture Draw Fee 13:51:18 CDT CPT-87397 Venipuncture Draw Fee 10:14:55 [employer] CPT-25797 Venipuncture Draw Fee 13:39:45 [employer] CPT-OV Office Visit 15:11:22 [employer] CPT-19471 Venipuncture Draw Fee 09:20:49 [employer] CPT-30857 Venipuncture Draw Fee 16:52:15 [employer] CPT-43329 Venipuncture Draw Fee 10:37:24 [employer] CPT-63601 Venipuncture Draw Fee 08:21:21 [employer] CPT-93898 Venipuncture Draw Fee 08:30:20 [employer] CPT-45282 Venipuncture Draw Fee 14:53:21 [employer] CPT-83950 Venipuncture Draw Fee 09:40:56 [employer] CPT-29363 Venipuncture Draw Fee 10:30:47 [employer] CPT-82875 Venipuncture Draw Fee 10:46:17 [employer] CPT-33492 Venipuncture Draw Fee 11:12:45 [employer] CPT-25147 Venipuncture Draw Fee 09:53:33 [employer] CPT-22079 Venipuncture Draw Fee 11:53:51 [employer] CPT-24442 Venipuncture Draw Fee 10:33:50 [employer] CPT-31302 Venipuncture Draw Fee 10:05:01 [employer] CPT-53081 Venipuncture Draw Fee 14:32:52 [employer] CPT-56325 Venipuncture Draw Fee 09:46:13 [employer] CPT-33749 Venipuncture Draw Fee 11:34:27 [employer] CPT-42037 Venipuncture Draw Fee 13:17:16 [employer] CPT-65700 Venipuncture Draw Fee 12:05:39 CDT CPT-75563 Venipuncture Draw Fee 12:49:12 CDT CPT-40142 Venipuncture Draw Fee 12:37:18 CDT CPT-88571 Venipuncture Draw Fee 10:57:11 CDT CPT-54742 Venipuncture Draw Fee 13:47:40 CDT CPT-13007 Venipuncture Draw Fee 10:02:17 CDT CPT-82150 TB Tubersol 17:32:32 CDT CPT-OV Office Visit 16:21:53 CDT CPT-OV Office Visit 15:49:22 CDT CPT-OV Office Visit 17:16:31 CDT CPT-OV Office Visit 10:43:31 CDT
--- OUTSIDE RECORDS SUMMARY | 2019-02-09 13:15 | XMS REPORT | Clinical Summary ---
Author Author Renaldo, Florecita Munoz Organization [facility] Address Unknown Phone Unavailable Allergies, Adverse [...] cohn MD PhD UNSPECIFIED VENOUS INSUFFICIENCY ICD-459.81 [place] [facility] Adam Yates MD ADENOCARCINOMA, ASCENDING COLON [...] 1 injection every 2 weeks 01/09 CYANOCOBALAMIN 35647835868 Active Laura Elder Active VITAMIN D3 4000 IU 1 tab 3 times daily VITAMIN D3 400 0 IU Active Hope Benavidez MD PhD Active BACTRIM DS 800-160 MG TABS 1 pill by mouth twice daily, for UTI SULFAMETHOXAZOLE-TRIMETHOPRIM 34550031407 No Longer Active Lisa Benavidez MD PhD Active PROLIA 60 MG/ML SOLN 1 shot every 6 months for osteoprosis DENOSUMAB 57367264227 Active Hope Benavidez MD PhD Active CALCIUM + D + K 750-500-40 MG-UNT-MCG TABS 1 tab by mouth tw ice daily CALCIUM-VITAMIN D-VITAMIN K 89149279964 Active Hope landers MD PhD Active DAILY VALUE MULTIVITAMIN TABS 1 tab by mouth twice daily MULTIPLE VITAMIN 51719184634 Active Hope Benavidez MD PhD Active FISH OIL 306 MG CAPS 1 tab by mouth three times daily OMEGA-3 FATTY ACIDS 02307743907 Active Hope Benavidez MD PhD Active LUTEIN 10 MG TABS 1 tab daily LUTEIN 00325377905 Act cash Hope Benavidez MD PhD Active FLORANEX PACK 1 pack three times daily, for bowel health LACTOBACILLUS 85921185969 Active Hope Benavidez MD PhD Active LOMOTIL 2.5-0.025 MG TABS 1 tab by mouth prn DIPHENOXYLATE-ATROPINE 62124121573 Active Hope Benavidez MD PhD Active TRIAMTERENE-HCTZ 37.5-25 MG TABS 1 tab by mouth daily TRIAMTERENE-HCTZ 07182327259 Active Hope Benavidez MD PhD Acti ve IRON 325 (65 FE) MG TABS 1 tab daily FERROUS SULF ATE 55816436998 Active Hope Benavidez MD PhD Active MAGNESIUM GLUCONATE 250 MG TABS 1 tab tid MAGN ESIUM GLUCONATE 46055146241 Active Adam Yates MD Active ATENOLOL 50 MG TABS 1/2 tab q other day m-w-f ATE NOLOL 50156574955 Active Hope Benavidez MD PhD Active PROPRANOLOL HCL 80 MG TABS 1 tab tue. and thur. PROPRANOLOL HCL 00455007002 Active Adam Yates MD Active CYCLOBENZAPRINE HCL 10 MG TABS 1 tablet by mouth three times daily as needed for headaches CYCLOBENZAPRINE HCL 52211896888 No Longe r Active Adam Yates MD Active OMEPRAZOLE 20 MG CPDR 1 tablet by mouth daily for GERD OMEPRAZOLE 04178718438 No Longer Active Adam Yates MD A ctive ZOFRAN 8 MG TABS 1 tab by mouth every 12 hours prn 201 05/16/09 ONDANSETRON HCL 31029608684 No Longer Active Adam Yates MD Active PHENADOZ 25 MG SUPP 1 every 4 hrs. PRN PROMETHA ZINE HCL 25380797129 No Longer Active Adam Yates MD Active POTASSIUM CHLORIDE 20 MEQ PACK by mouth twice a day prn POTASSIUM CHLORIDE 09586229996 No Longer Active Adam Yates MD Active PROMETHAZINE HCL 25 MG TABS 1 Q. 4 hr. PRN PROM ETHAZINE HCL 75195939650 No Longer Active Adam Yates MD Active INNOPRAN XL 120 MG [id number] Take one by mouth daily 2 PROPRANOLOL HCL SR BEADS 24321840372 No Longer Active Adam Yates MD A ctive FLAGYL 500 MG TABS 1 pill by mouth three times daily, for diarrh ea METRONIDAZOLE 31408846252 No Longer Active Hope Benavidez MD PhD Active DYAZIDE 37.5-25 MG CAPS 1 qd TRIAMTERENE-HC TZ 96943627901 No Longer Active Hope Benavidez MD PhD Active PROZAC 20 MG CAPS 1 q d FLUOXETINE HCL 82758 474581 No Longer Active Hope Benavidez MD PhD Active SIMVASTATIN 40 MG TABS 1 qd SIMVASTATIN 004 23921863 No Longer Active Adam Yates MD Active MELOXICAM 15 MG TABS 1 qd MELOXICAM 8267191 1641 No Longer Active Adam Yates MD Active IMODIUM A-D 2 MG TABS 2 onset at diarrhea and prn. LOPERAMIDE HCL 69598677100 Active Hope Benavidez MD PhD Active EXCEDRIN EXTRA STRENGTH 250-250-65 MG TABS 1-2 q6h PRN headache 201 04/16/21 [id number] 70951767709 Active Hope Benavidez MD PhD Active FLAGYL 500 MG TABS 1 qid METRONIDAZOLE 63267 195433 No Longer Active Adam Yates MD Active LEVAQUIN 750 MG TABS 1 qd LEVOFLOXACIN 5486 7033687 No Longer Active Adam Yates MD Active ADULT ASPIRIN LOW STRENGTH 81 MG TBDP 1 qd A SPIRIN 07939487742 Active Hope Benavidez MD PhD Active LEVAQUIN 750 MG TABS 1 qd LEVAQUIN 750 MG T ABS 557067 LEVOFLOXACIN Inactive FLAGYL 500 MG TABS 1 qid FLAGYL 500 MG TABS 991748 METRONIDAZOLE Inactive MELOXICAM 15 MG TABS 1 qd MELOXICAM 15 MG T ABS 863411 MELOXICAM Inactive SIMVASTATIN 40 MG TABS 1 qd SIMVASTATIN 40 MG TABS 608493 SIMVASTATIN Inactive PROZAC 20 MG CAPS 1 q d PROZAC 20 MG CAPS 31 0385 FLUOXETINE HCL Inactive DYAZIDE 37.5-25 MG CAPS 1 qd DYAZIDE 37.5 -25 MG CAPS 951041 TRIAMTERENE-HCTZ Inactive INNOPRAN XL 120 MG [id number] Take one by mouth daily 2 INNOPRAN XL 120 MG [id number] PROPRANOLOL HCL SR BEADS Inactive PROMETHAZINE HCL 25 MG TABS 1 Q. 4 hr. PRN PROMETHAZINE HCL 25 MG TABS 145426 PROMETHAZINE HCL Inactive POTASSIUM CHLORIDE 20 MEQ PACK by mouth twice a day prn POTASSIUM CHLORIDE 20 MEQ PACK 223139 POTASSIUM CHLORIDE Inactive PHENADOZ 25 MG SUPP 1 every 4 hrs. PRN PHENADOZ 2 5 MG SUPP 331857 PROMETHAZINE HCL Inactive ZOFRAN 8 MG TABS 1 tab by mouth every 12 hours prn 201 05/16/09 ZOFRAN 8 MG TABS 616582 ONDANSETRON HCL Inactive OMEPRAZOLE 20 MG CPDR 1 tablet by mouth daily for GERD OMEPRAZOLE 20 MG CPDR 614869 OMEPRAZOLE Inactive CYCLOBENZAPRINE HCL 10 MG TABS 1 tablet by mouth three times daily as needed for headaches CYCLOBENZAPRINE HCL 10 MG TABS 556110 CYCLOBENZAPRINE HCL Inactive FLAGYL 500 MG TABS 1 pill by mouth three times daily, for diarrh ea FLAGYL 500 MG TABS 191750 METRONIDAZOLE Inactive BACTRIM DS 800-160 MG TABS [...] Range Description Chart Maintenance: labs added to [facility] - Chemistry magnesium, serum 2.0 mg/dL Chart Maintenance: Outside labs entered on [facility] - Chemistry sodium, serum 139 mmol/L potassium, serum 3.9 mmol/L blood glucose 85 mg/dL creatinine, serum 1.26 mg/dL aspartate aminotransferase (SGOT), serum 33 U/L alanine aminotransferase (SGPT), serum 44 U/L alkaline phosphatase, serum 127 U/L Chart Maintenance: Outside labs entered on [facility] - Hematology leukocyte count, blood 4.6 10*3/mm3 hemoglobin, blood 13.6 g/dL platelet count 162 10*3/mm3 Lab Report: Basic Metabolic Panel - Chem istry sodium, serum 136 mmol/L 134-731 7815/05/02 potassium, serum 4.1 mmol/L 3.5-5.2 chloride, serum 99 mmol/L 98-107 carbon dioxide, venous blood 30.7 mmol/L 21.0-32 .0 blood glucose 79 mg/dL 65-110 calcium, serum 8.7 mg/dL 8.5-10.1 urea nitrogen, blood 11 mg/dL 7-18 creatinine, serum 1.10 mg/dL 0.60-1.30 Lab Report: [facility] - Chemistry sodium, serum 141 mmol/L potassium, serum 4.2 mmol/L blood glucose 66 mg/dL creatinine, serum 1.16 mg/dL Lab Report: CBC W/ DIFF, [facility] - Chemistry sodium, serum 137 mmol/L potassium, serum 3.8 mmol/L blood glucose 79 mg/dL creatinine, serum 1.02 mg/dL magnesium, serum 1.2 mg/dL Lab Report: CBC W/ DIFF, [facility], [facility], AN [facility]EROB[facility] CX - Hematology leukocyte [...] 11 .6-14.8 platelet count 22 10^3/MM^3 10*3/mm3 161-733 3106/12/10 leukocyte count, blood 7.8 10^3/MM^3 10*3/mm3 4.6-10.2 [...] 11 .6-14.8 platelet count 102 10^3/MM^3 10*3/mm3 522-948 5585/01/08 leukocyte count, blood 9.0 10^3/MM^3 10*3/mm3 4.6-10.2 [...] Panel - Chemistry sodium, serum 142 mmol/L 143-550 9548/01/03 potassium, serum 3.4 mmol/L 3.5-5.2 chloride, serum [...] 0.50 mg/dL 0.00-1.00 sodium, serum 139 mmol/L 282-613 6958/01/21 potassium, serum 3.4 mmol/L 3.5-5.2 chloride, serum [...] 0.40 mg/dL 0.00-1.00 sodium, serum 138 mmol/L 582-192 7263/01/28 potassium, serum 3.2 mmol/L 3.5-5.2 chloride, serum [...] 0.40 mg/dL 0.00-1.00 sodium, serum 140 mmol/L 842-640 8486/02/04 potassium, serum 3.6 mmol/L 3.5-5.2 chloride, serum [...] 0.70 mg/dL 0.00-1.00 sodium, serum 140 mmol/L 998-272 0885/01/06 potassium, serum 3.4 mmol/L 3.5-5.2 chloride, serum [...] 0.40 mg/dL 0.00-1.00 sodium, serum 136 mmol/L 258-925 4186/04/03 potassium, serum 3.7 mmol/L 3.5-5.2 chloride, serum [...] 0.40 mg/dL 0.00-1.00 sodium, serum 136 mmol/L 338-839 2856/02/11 potassium, serum 3.1 mmol/L 3.5-5.2 chloride, serum [...] 0.50 mg/dL 0.00-1.00 sodium, serum 139 mmol/L 180-596 5847/02/18 potassium, serum 3.6 mmol/L 3.5-5.2 chloride, serum [...] 0.50 mg/dL 0.00-1.00 sodium, serum 138 mmol/L 529-303 8670/08/14 potassium, serum 4.0 mmol/L 3.5-5.2 chloride, serum [...] 11 .6-14.8 platelet count 246 10^3/MM^3 10*3/mm3 682-567 0583/02/18 leukocyte count, blood 4.0 10^3/MM^3 10*3/mm3 4.6-10.2 [...] 11 .6-14.8 platelet count 134 10^3/MM^3 10*3/mm3 780-786 3707/08/14 leukocyte count, blood 5.8 10^3/MM^3 10*3/mm3 4.6-10.2 [...] 11 .6-14.8 platelet count 193 10^3/MM^3 10*3/mm3 016-643 0453/02/11 leukocyte count, blood 4.8 10^3/MM^3 10*3/mm3 4.6-10.2 [...] 11 .6-14.8 platelet count 102 10^3/MM^3 10*3/mm3 958-478 7450/02/04 leukocyte count, blood 3.6 10^3/MM^3 10*3/mm3 4.6-10.2 [...] 11 .6-14.8 platelet count 70 10^3/MM^3 10*3/mm3 682-452 3679/01/28 leukocyte count, blood 4.2 10^3/MM^3 10*3/mm3 4.6-10.2 [...] 11 .6-14.8 platelet count 73 10^3/MM^3 10*3/mm3 567-373 4078/01/21 leukocyte count, blood 4.9 10^3/MM^3 10*3/mm3 4.6-10.2 [...] .6-14.8 platelet count 38 recounted 10^3/mm^3 10*3/mm3 105-838 5358/01/06 leukocyte count, blood 7.6 10^3/MM^3 10*3/mm3 4.6-10.2 [...] 11 .6-14.8 platelet count 132 10^3/MM^3 10*3/mm3 752-347 4901/01/03 leukocyte count, blood 8.1 10^3/MM^3 10*3/mm3 4.6-10.2 [...] Diff/Morphology - Chemistry sodium, serum 141 mmol/L 568-111 4730/01/14 potassium, serum 3.9 mmol/L 3.5-5.2 chloride, serum [...] 0.50 mg/dL 0.00-1.00 sodium, serum 140 mmol/L 062-464 7875/12/17 potassium, serum 3.3 mmol/L 3.5-5.2 chloride, serum [...] 0.40 mg/dL 0.00-1.00 sodium, serum 138 mmol/L 759-042 6484/12/24 potassium, serum 3.7 mmol/L 3.5-5.2 chloride, serum [...] 11 .6-14.8 platelet count 66 10^3/MM^3 10*3/mm3 531-990 6806/01/14 leukocyte count, blood 6.2 10^3/MM^3 10*3/mm3 4.6-10.2 [...] 11 .6-14.8 platelet count 22 10^3/MM^3 10*3/mm3 077-527 3022/12/17 leukocyte count, blood 18.6 10^3/MM^3 10*3/mm3 4.6-10.2 [...] - Chem istry sodium, serum 142 mmol/L 685-035 8479/12/10 potassium, serum 3.9 mmol/L 3.5-5.2 chloride, serum [...] Diff/Morphology - Chemistry sodium, serum 142 mmol/L 711-295 1530/12/31 potassium, serum 3.6 mmol/L 3.5-5.2 chloride, serum [...] Panel - Chemistry cholesterol, serum 209 mg/dL 881-144 3198/09/11 triglyceride, serum, fasting 113 mg/dL 30-200 HDL [...] 5.0-8.5 Encounters Code Encounter Date Provider Facility CPT-02173 Level 4 Est. Patient 19:08:42 [employer] Hope cohn MD PhD [facility] CPT-85854 Level 4 Est. Patient 20:04:51 CDT Hope cohn MD PhD [facility] CPT-27534 Level 3 New Patient 01:46:11 [employer] Hope landers MD PhD [facility] Procedures Code Procedure Name Date Entry Date Standard Desc ription CPT-J3420 Vitamin B12 1000mcg (Cyanocobalamin) 09:25:05 [employer] CPT-68786 Abx/Therapy Injection 09:25:05 [employer] CPT-G0008 Administration of Influenza Virus Vaccine 13:36:47 CDT CPT-94133 Fluzone High-Dose Intramuscular Suspension 11/15 13:36:47 CDT CPT-J0897 Prolia 60 mg 08:50:41 CDT CPT-83063 Abx/Therapy Injection 08:50:41 CDT CPT-75188 Bone Density 12:06:12 CDT CPT-06329 Bone Density 08:54:40 CDT CPT-OV Office Visit 15:37:02 CDT CPT-39171 Postop F/U Visit 15:47:49 CDT CPT-86146 Postop F/U Visit 15:21:02 CDT CPT-TCM Transitional Care Mgmt-High 07:52:27 CDT 20 20/06/01 CPT-71143 Venipuncture Draw Fee 13:51:18 CDT CPT-07762 Venipuncture Draw Fee 10:14:55 [employer] CPT-42707 Venipuncture Draw Fee 13:39:45 [employer] CPT-OV Office Visit 15:11:22 [employer] CPT-82970 Venipuncture Draw Fee 09:20:49 [employer] CPT-54724 Venipuncture Draw Fee 16:52:15 [employer] CPT-04667 Venipuncture Draw Fee 10:37:24 [employer] CPT-32377 Venipuncture Draw Fee 08:21:21 [employer] CPT-97839 Venipuncture Draw Fee 08:30:20 [employer] CPT-01288 Venipuncture Draw Fee 14:53:21 [employer] CPT-50796 Venipuncture Draw Fee 09:40:56 [employer] CPT-93661 Venipuncture Draw Fee 10:30:47 [employer] CPT-19338 Venipuncture Draw Fee 10:46:17 [employer] CPT-95913 Venipuncture Draw Fee 11:12:45 [employer] CPT-04238 Venipuncture Draw Fee 09:53:33 [employer] CPT-66870 Venipuncture Draw Fee 11:53:51 [employer] CPT-36529 Venipuncture Draw Fee 10:33:50 [employer] CPT-22526 Venipuncture Draw Fee 10:05:01 [employer] CPT-35555 Venipuncture Draw Fee 14:32:52 [employer] CPT-89304 Venipuncture Draw Fee 09:46:13 [employer] CPT-61721 Venipuncture Draw Fee 11:34:27 [employer] CPT-11931 Venipuncture Draw Fee 13:17:16 [employer] CPT-26231 Venipuncture Draw Fee 12:05:39 CDT CPT-14368 Venipuncture Draw Fee 12:49:12 CDT CPT-72645 Venipuncture Draw Fee 12:37:18 CDT CPT-80369 Venipuncture Draw Fee 10:57:11 CDT CPT-94755 Venipuncture Draw Fee 13:47:40 CDT CPT-24048 Venipuncture Draw Fee 10:02:17 CDT CPT-11540 TB Tubersol 17:32:32 CDT CPT-OV Office Visit 16:21:53 CDT CPT-OV Office Visit 15:49:22 CDT CPT-OV Office Visit 17:16:31 CDT CPT-OV Office Visit 10:43:31 CDT
--- OUTSIDE RECORDS SUMMARY | 2019-02-09 13:15 | XMS REPORT | Clinical Summary ---
Author Author Renaldo, Florecita Munoz Organization [facility] Address Unknown Phone Allergies, Adverse Reactions, Alerts [...] MG CAPS 1 q d FLUOXETINE HCL 83505 936705 No Longer Active Hope Benavidez MD PhD Active INNOPRAN XL 120 MG [id number] Take one by mouth daily PROPRANOLOL HCL SR BEADS 86411918992 Active Hope Benavidez MD PhD Active POTASSIUM CHLORIDE 20 MEQ PACK by mouth twice a day prn POTASSIUM CHLORIDE 77036407839 Active Adam Yates MD Activ e CYCLOBENZAPRINE HCL 10 MG TABS 1 tablet by mouth three times daily as needed for headaches CYCLOBENZAPRINE HCL 85205911394 Active Selena aYtes MD Active SIMVASTATIN 40 MG TABS 1 qd SIMVASTATIN 004 73440511 No Longer Active Adam Yates MD Active MELOXICAM 15 MG TABS 1 qd MELOXICAM 2441584 2473 No Longer Active Adam Yates MD Active ATENOLOL 50 MG TABS 1/2 tab q other day ATENOLOL 07747452066 Active Hope Benavidez MD PhD Active OMEPRAZOLE 20 MG CPDR 1 tablet by mouth daily for GERD OMEPRAZOLE 07642568289 Active Hope Benavidez MD PhD Active IMODIUM A-D 2 MG TABS 2 onset at diarrhea and prn. LOPERAMIDE HCL 82848322230 Active Hope Benavidez MD PhD Active PHENADOZ 25 MG SUPP 1 every 4 hrs. PRN PROMETHAZINE HCL 81660936751 Active Hope Benavidez MD PhD Active PROMETHAZINE HCL 25 MG TABS 1 Q. 4 hr. PRN PROMETH AZINE HCL 30549045146 Active Hope Benavidez MD PhD Active EXCEDRIN EXTRA STRENGTH 250-250-65 MG TABS 1-2 q6h PRN headache 201 04/16/21 [id number] 71459032264 Active Hope Benavidez MD PhD Active ZOFRAN 4 MG TABS 1 q 6 hr prn ONDANSETRON HCL 6970290 7002 Active Fay Alberts Active FLAGYL 500 MG TABS 1 qid METRONIDAZOLE 82868 383870 No Longer Active Adam Yates MD Active LEVAQUIN 750 MG TABS 1 qd LEVOFLOXACIN 5486 1012353 No Longer Active Adam Yates MD Active DYAZIDE 37.5-25 MG CAPS 1 qd TRIAMTERENE-HCTZ 5886 2640998 Active Hope Benavidez MD PhD Active ADULT ASPIRIN LOW STRENGTH 81 MG TBDP 1 qd A SPIRIN 33959015775 Active Hope Benavidez MD PhD Active LEVAQUIN 750 MG TABS 1 qd LEVAQUIN 750 MG T ABS 531832 LEVOFLOXACIN Inactive FLAGYL 500 MG TABS 1 qid FLAGYL 500 MG TABS 385122 METRONIDAZOLE Inactive MELOXICAM 15 MG TABS 1 qd MELOXICAM 15 MG T ABS 231616 MELOXICAM Inactive SIMVASTATIN 40 MG TABS 1 qd SIMVASTATIN 40 MG TABS 994685 SIMVASTATIN Inactive PROZAC 20 MG CAPS 1 [...] - Chem istry sodium, serum 137 mmol/L 102-296 7232/11/01 potassium, serum 3.7 mmol/L 3.5-5.2 chloride, serum 100 mmol/L 98-107 carbon dioxide, venous blood 31.8 mmol/L 21.0-32 .0 blood glucose 98 mg/dL 65-110 calcium, serum 8.6 mg/dL 8.5-10.1 urea nitrogen, blood 23 mg/dL 7-18 creatinine, serum 1.50 mg/dL 0.60-1.30 sodium, serum 136 mmol/L 569-845 3263/05/02 potassium, serum 4.1 mmol/L 3.5-5.2 chloride, serum [...] 11 .6-14.8 platelet count 133 10^3/MM^3 10*3/mm3 325-967 9040/01/17 leukocyte count, blood 3.1 10^3/MM^3 10*3/mm3 4.6-10.2 [...] 11 .6-14.8 platelet count 22 10^3/MM^3 10*3/mm3 927-120 8691/11/19 leukocyte count, blood 10.4 10^3/MM^3 10*3/mm3 4.6-10.2 [...] Verified By Repeat Analysis 10^3/mm ^3 10*3/mm3 235-413 5089/12/10 leukocyte count, blood 7.8 10^3/MM^3 10*3/mm3 4.6-10.2 [...] Panel - Chemistry sodium, serum 139 mmol/L 313-496 4860/12/03 potassium, serum 3.7 mmol/L 3.5-5.2 chloride, serum [...] 0.40 mg/dL 0.00-1.00 sodium, serum 137 mmol/L 777-350 4254/10/01 potassium, serum 3.5 mmol/L 3.5-5.2 chloride, serum [...] 0.60 mg/dL 0.00-1.00 sodium, serum 136 mmol/L 097-531 0085/10/08 potassium, serum 3.1 mmol/L 3.5-5.2 chloride, serum [...] 0.60 mg/dL 0.00-1.00 sodium, serum 139 mmol/L 418-708 1546/10/17 potassium, serum 3.1 mmol/L 3.5-5.2 chloride, serum [...] 0.30 mg/dL 0.00-1.00 sodium, serum 139 mmol/L 475-835 6622/01/21 potassium, serum 3.4 mmol/L 3.5-5.2 chloride, serum [...] 0.40 mg/dL 0.00-1.00 sodium, serum 138 mmol/L 906-455 9067/01/28 potassium, serum 3.2 mmol/L 3.5-5.2 chloride, serum [...] 0.40 mg/dL 0.00-1.00 sodium, serum 140 mmol/L 755-256 3535/02/04 potassium, serum 3.6 mmol/L 3.5-5.2 chloride, serum [...] 0.70 mg/dL 0.00-1.00 sodium, serum 142 mmol/L 032-784 7566/01/03 potassium, serum 3.4 mmol/L 3.5-5.2 chloride, serum [...] 0.50 mg/dL 0.00-1.00 sodium, serum 140 mmol/L 404-317 9751/01/06 potassium, serum 3.4 mmol/L 3.5-5.2 chloride, serum [...] 0.40 mg/dL 0.00-1.00 sodium, serum 136 mmol/L 477-808 7164/04/03 potassium, serum 3.7 mmol/L 3.5-5.2 chloride, serum [...] 0.40 mg/dL 0.00-1.00 sodium, serum 136 mmol/L 951-568 8642/02/11 potassium, serum 3.1 mmol/L 3.5-5.2 chloride, serum [...] 0.50 mg/dL 0.00-1.00 sodium, serum 139 mmol/L 917-711 0844/02/18 potassium, serum 3.6 mmol/L 3.5-5.2 chloride, serum [...] 11 .6-14.8 platelet count 246 10^3/MM^3 10*3/mm3 000-363 2010/02/18 leukocyte count, blood 4.0 10^3/MM^3 10*3/mm3 4.6-10.2 [...] 11 .6-14.8 platelet count 134 10^3/MM^3 10*3/mm3 441-046 4550/01/03 leukocyte count, blood 8.1 10^3/MM^3 10*3/mm3 4.6-10.2 [...] 11 .6-14.8 platelet count 96 10^3/MM^3 10*3/mm3 635-323 4216/01/06 leukocyte count, blood 7.6 10^3/MM^3 10*3/mm3 4.6-10.2 [...] 11 .6-14.8 platelet count 132 10^3/MM^3 10*3/mm3 066-369 2879/02/11 leukocyte count, blood 4.8 10^3/MM^3 10*3/mm3 4.6-10.2 [...] 11 .6-14.8 platelet count 102 10^3/MM^3 10*3/mm3 514-950 8701/02/04 leukocyte count, blood 3.6 10^3/MM^3 10*3/mm3 4.6-10.2 [...] 11 .6-14.8 platelet count 70 10^3/MM^3 10*3/mm3 915-529 6441/01/28 leukocyte count, blood 4.2 10^3/MM^3 10*3/mm3 4.6-10.2 [...] 11 .6-14.8 platelet count 73 10^3/MM^3 10*3/mm3 663-891 2054/01/21 leukocyte count, blood 4.9 10^3/MM^3 10*3/mm3 4.6-10.2 [...] .6-14.8 platelet count 38 recounted 10^3/mm^3 10*3/mm3 782-047 3907/10/08 leukocyte count, blood 2.9 10^3/MM^3 10*3/mm3 4.6-10.2 [...] 11 .6-14.8 platelet count 229 10^3/MM^3 10*3/mm3 602-228 8184/10/17 leukocyte count, blood 12.0 10^3/MM^3 10*3/mm3 4.6-10.2 [...] 11 .6-14.8 platelet count 232 10^3/MM^3 10*3/mm3 107-244 8606/10/01 leukocyte count, blood 8.3 10^3/MM^3 10*3/mm3 4.6-10.2 [...] 11 .6-14.8 platelet count 378 10^3/MM^3 10*3/mm3 730-494 4232/12/03 leukocyte count, blood 8.2 10^3/MM^3 10*3/mm3 4.6-10.2 [...] Diff/Morphology - Chemistry sodium, serum 141 mmol/L 498-758 7840/11/25 potassium, serum 3.9 mmol/L 3.5-5.2 chloride, serum [...] 0.50 mg/dL 0.00-1.00 sodium, serum 137 mmol/L 547-822 1996/11/12 potassium, serum 3.2 mmol/L 3.5-5.2 chloride, serum [...] 0.40 mg/dL 0.00-1.00 sodium, serum 140 mmol/L 050-888 5474/12/17 potassium, serum 3.3 mmol/L 3.5-5.2 chloride, serum [...] 0.40 mg/dL 0.00-1.00 sodium, serum 138 mmol/L 184-971 6599/12/24 potassium, serum 3.7 mmol/L 3.5-5.2 chloride, serum [...] 0.50 mg/dL 0.00-1.00 sodium, serum 138 mmol/L 549-133 7922/11/05 potassium, serum 3.9 mmol/L 3.5-5.2 chloride, serum [...] 0.40 mg/dL 0.00-1.00 sodium, serum 135 mmol/L 122-990 1303/10/22 potassium, serum 3.0 mmol/L 3.5-5.2 chloride, serum [...] 0.50 mg/dL 0.00-1.00 sodium, serum 128 mmol/L 060-553 3205/10/29 potassium, serum 2.6 mmol/L 3.5-5.2 chloride, serum [...] 0.50 mg/dL 0.00-1.00 sodium, serum 141 mmol/L 817-033 4028/01/14 potassium, serum 3.9 mmol/L 3.5-5.2 chloride, serum [...] 11 .6-14.8 platelet count 22 10^3/MM^3 10*3/mm3 026-881 7946/10/22 leukocyte count, blood 14.7 10^3/MM^3 10*3/mm3 4.6-10.2 [...] 11 .6-14.8 platelet count 428 10^3/MM^3 10*3/mm3 104-391 7029/10/29 leukocyte count, blood 26.3 10^3/MM^3 10*3/mm3 4.6-10.2 [...] 11 .6-14.8 platelet count 268 10^3/MM^3 10*3/mm3 923-329 2440/11/12 leukocyte count, blood 12.1 10^3/MM^3 10*3/mm3 4.6-10.2 [...] 11 .6-14.8 platelet count 157 10^3/MM^3 10*3/mm3 259-871 5749/11/05 leukocyte count, blood 16.4 10^3/MM^3 10*3/mm3 4.6-10.2 [...] 11 .6-14.8 platelet count 215 10^3/MM^3 10*3/mm3 772-595 9666/12/24 leukocyte count, blood 14.0 10^3/MM^3 10*3/mm3 4.6-10.2 [...] 11 .6-14.8 platelet count 66 10^3/MM^3 10*3/mm3 797-136 5707/12/17 leukocyte count, blood 18.6 10^3/MM^3 10*3/mm3 4.6-10.2 [...] 11 .6-14.8 platelet count 75 10^3/MM^3 10*3/mm3 982-326 1113/11/25 leukocyte count, blood 21.1 10^3/MM^3 10*3/mm3 4.6-10.2 [...] 11 .6-14.8 platelet count 413 10^3/MM^3 10*3/mm3 231-740 7323/01/16 leukocyte count, blood 3.6 10^3/MM^3 10*3/mm3 4.6-10.2 [...] - Chem istry sodium, serum 141 mmol/L 552-580 9990/11/19 potassium, serum 3.9 mmol/L 3.5-5.2 chloride, serum [...] 0.50 mg/dL 0.00-1.00 sodium, serum 142 mmol/L 227-228 5983/12/10 potassium, serum 3.9 mmol/L 3.5-5.2 chloride, serum [...] Diff/Morphology - Chemistry sodium, serum 142 mmol/L 105-965 0423/12/31 potassium, serum 3.6 mmol/L 3.5-5.2 chloride, serum [...] 3.5-5.2 Encounters Code Encounter Date Provider Facility CPT-65076 Level 3 New Patient 01:46:11 [employer] Hope landers MD PhD [facility] Procedures Code Procedure Name Date Entry Date Standard Desc ription CPT-06555 Postop F/U Visit 15:21:02 CDT CPT-TCMH Transitional Care Mgmt-High 07:52:27 CDT 20 20/06/01 CPT-23866 Venipuncture Draw Fee 13:51:18 CDT CPT-03492 Venipuncture Draw Fee 10:14:55 [employer] CPT-97447 Venipuncture Draw Fee 13:39:45 [employer] CPT-OV Office Visit 15:11:22 [employer] CPT-89420 Venipuncture Draw Fee 09:20:49 [employer] CPT-23624 Venipuncture Draw Fee 16:52:15 [employer] CPT-80085 Venipuncture Draw Fee 10:37:24 [employer] CPT-72431 Venipuncture Draw Fee 08:21:21 [employer] CPT-87883 Venipuncture Draw Fee 08:30:20 [employer] CPT-36427 Venipuncture Draw Fee 14:53:21 [employer] CPT-45826 Venipuncture Draw Fee 09:40:56 [employer] CPT-31436 Venipuncture Draw Fee 10:30:47 [employer] CPT-53320 Venipuncture Draw Fee 10:46:17 [employer] CPT-02401 Venipuncture Draw Fee 11:12:45 [employer] CPT-91323 Venipuncture Draw Fee 09:53:33 [employer] CPT-54036 Venipuncture Draw Fee 11:53:51 [employer] CPT-09678 Venipuncture Draw Fee 10:33:50 [employer] CPT-05827 Venipuncture Draw Fee 10:05:01 [employer] CPT-51401 Venipuncture Draw Fee 14:32:52 [employer] CPT-90191 Venipuncture Draw Fee 09:46:13 [employer] CPT-27171 Venipuncture Draw Fee 11:34:27 [employer] CPT-63692 Venipuncture Draw Fee 13:17:16 [employer] CPT-05505 Venipuncture Draw Fee 12:05:39 CDT CPT-91771 Venipuncture Draw Fee 12:49:12 CDT CPT-12403 Venipuncture Draw Fee 12:37:18 CDT CPT-06479 Venipuncture Draw Fee 10:57:11 CDT CPT-51568 Venipuncture Draw Fee 13:47:40 CDT CPT-20879 Venipuncture Draw Fee 10:02:17 CDT CPT-67089 TB Tubersol 17:32:32 CDT CPT-OV Office Visit 16:21:53 CDT CPT-OV Office Visit 15:49:22 CDT CPT-OV Office Visit 17:16:31 CDT CPT-OV Office Visit 10:43:31 CDT
--- OUTSIDE RECORDS SUMMARY | 2019-02-09 13:16 | XMS REPORT | Clinical Summary ---
Author Author Renaldo, Florecita Munoz Organization [facility] Address Unknown Phone Allergies, Adverse Reactions, Alerts [...] 1 tab 3x aday M AGNESIUM GLUCONATE 44728668991 Active Adam Yates MD Active PROZAC 20 MG CAPS 1 q d FLUOXETINE HCL 34510 720224 No Longer Active Hope Benavidez MD PhD Active INNOPRAN XL 120 MG [id number] Take one by mouth daily PROPRANOLOL HCL SR BEADS 81673612265 Active Hope Benavidez MD PhD Active POTASSIUM CHLORIDE 20 MEQ PACK by mouth twice a day prn POTASSIUM CHLORIDE 80417940429 Active Adam Yates MD Activ e CYCLOBENZAPRINE HCL 10 MG TABS 1 tablet by mouth three times daily as needed for headaches CYCLOBENZAPRINE HCL 87306493782 Active eSlena Yates MD Active SIMVASTATIN 40 MG TABS 1 qd SIMVASTATIN 004 29056624 No Longer Active Adam Yates MD Active MELOXICAM 15 MG TABS 1 qd MELOXICAM 4872585 3326 No Longer Active Adam Yates MD Active ATENOLOL 50 MG TABS 1/2 tab q other day ATENOLOL 01603134882 Active Hope Benavidez MD PhD Active OMEPRAZOLE 20 MG CPDR 1 tablet by mouth daily for GERD OMEPRAZOLE 38075628125 Active Hope Benavidez MD PhD Active IMODIUM A-D 2 MG TABS 2 onset at diarrhea and prn. LOPERAMIDE HCL 09410986095 Active Hope Benavidez MD PhD Active PHENADOZ 25 MG SUPP 1 every 4 hrs. PRN PROMETHAZINE HCL 56686869532 Active Hope Benavidez MD PhD Active PROMETHAZINE HCL 25 MG TABS 1 Q. 4 hr. PRN PROMETH AZINE HCL 95818119774 Active Hope Benavidez MD PhD Active EXCEDRIN EXTRA STRENGTH 250-250-65 MG TABS 1-2 q6h PRN headache 201 04/16/21 [id number] 38722932834 Active Hope Benavidez MD PhD Active ZOFRAN 4 MG TABS 1 q 6 hr prn ONDANSETRON HCL 1109099 7002 Active Fay Alberts Active FLAGYL 500 MG TABS 1 qid METRONIDAZOLE 36313 700563 No Longer Active Adam Yates MD Active LEVAQUIN 750 MG TABS 1 qd LEVOFLOXACIN 5486 5852599 No Longer Active Adam Yates MD Active DYAZIDE 37.5-25 MG CAPS 1 qd TRIAMTERENE-HCTZ 5886 6700583 Active Hope Benavidez MD PhD Active ADULT ASPIRIN LOW STRENGTH 81 MG TBDP 1 qd A SPIRIN 34384330621 Active Hope Benavidez MD PhD Active LEVAQUIN 750 MG TABS 1 qd LEVAQUIN 750 MG T ABS 091334 LEVOFLOXACIN Inactive FLAGYL 500 MG TABS 1 qid FLAGYL 500 MG TABS 882789 METRONIDAZOLE Inactive MELOXICAM 15 MG TABS 1 qd MELOXICAM 15 MG T ABS 276206 MELOXICAM Inactive SIMVASTATIN 40 MG TABS 1 qd SIMVASTATIN 40 MG TABS 015945 SIMVASTATIN Inactive PROZAC 20 MG CAPS 1 [...] - Chem istry sodium, serum 137 mmol/L 387-556 9834/11/01 potassium, serum 3.7 mmol/L 3.5-5.2 chloride, serum 100 mmol/L 98-107 carbon dioxide, venous blood 31.8 mmol/L 21.0-32 .0 blood glucose 98 mg/dL 65-110 calcium, serum 8.6 mg/dL 8.5-10.1 urea nitrogen, blood 23 mg/dL 7-18 creatinine, serum 1.50 mg/dL 0.60-1.30 sodium, serum 136 mmol/L 340-107 5432/05/02 potassium, serum 4.1 mmol/L 3.5-5.2 chloride, serum [...] 11 .6-14.8 platelet count 133 10^3/MM^3 10*3/mm3 126-024 5771/01/17 leukocyte count, blood 3.1 10^3/MM^3 10*3/mm3 4.6-10.2 [...] 11 .6-14.8 platelet count 22 10^3/MM^3 10*3/mm3 373-825 4751/11/19 leukocyte count, blood 10.4 10^3/MM^3 10*3/mm3 4.6-10.2 [...] Verified By Repeat Analysis 10^3/mm ^3 10*3/mm3 797-177 7815/12/10 leukocyte count, blood 7.8 10^3/MM^3 10*3/mm3 4.6-10.2 [...] Panel - Chemistry sodium, serum 139 mmol/L 187-645 5722/12/03 potassium, serum 3.7 mmol/L 3.5-5.2 chloride, serum [...] 0.40 mg/dL 0.00-1.00 sodium, serum 137 mmol/L 986-248 4861/10/01 potassium, serum 3.5 mmol/L 3.5-5.2 chloride, serum [...] 0.60 mg/dL 0.00-1.00 sodium, serum 136 mmol/L 057-391 7915/10/08 potassium, serum 3.1 mmol/L 3.5-5.2 chloride, serum [...] 0.60 mg/dL 0.00-1.00 sodium, serum 139 mmol/L 469-881 6244/10/17 potassium, serum 3.1 mmol/L 3.5-5.2 chloride, serum [...] 0.30 mg/dL 0.00-1.00 sodium, serum 139 mmol/L 369-526 1127/01/21 potassium, serum 3.4 mmol/L 3.5-5.2 chloride, serum [...] 0.40 mg/dL 0.00-1.00 sodium, serum 138 mmol/L 930-695 4318/01/28 potassium, serum 3.2 mmol/L 3.5-5.2 chloride, serum [...] 0.40 mg/dL 0.00-1.00 sodium, serum 140 mmol/L 446-230 7760/02/04 potassium, serum 3.6 mmol/L 3.5-5.2 chloride, serum [...] 0.70 mg/dL 0.00-1.00 sodium, serum 142 mmol/L 963-067 3415/01/03 potassium, serum 3.4 mmol/L 3.5-5.2 chloride, serum [...] 0.50 mg/dL 0.00-1.00 sodium, serum 140 mmol/L 909-775 9026/01/06 potassium, serum 3.4 mmol/L 3.5-5.2 chloride, serum [...] 0.40 mg/dL 0.00-1.00 sodium, serum 136 mmol/L 055-739 6947/04/03 potassium, serum 3.7 mmol/L 3.5-5.2 chloride, serum [...] 0.40 mg/dL 0.00-1.00 sodium, serum 136 mmol/L 412-262 0185/02/11 potassium, serum 3.1 mmol/L 3.5-5.2 chloride, serum [...] 0.50 mg/dL 0.00-1.00 sodium, serum 139 mmol/L 523-827 5002/02/18 potassium, serum 3.6 mmol/L 3.5-5.2 chloride, serum [...] 11 .6-14.8 platelet count 246 10^3/MM^3 10*3/mm3 783-202 3289/02/18 leukocyte count, blood 4.0 10^3/MM^3 10*3/mm3 4.6-10.2 [...] 11 .6-14.8 platelet count 134 10^3/MM^3 10*3/mm3 285-432 4334/01/03 leukocyte count, blood 8.1 10^3/MM^3 10*3/mm3 4.6-10.2 [...] 11 .6-14.8 platelet count 96 10^3/MM^3 10*3/mm3 834-709 6976/01/06 leukocyte count, blood 7.6 10^3/MM^3 10*3/mm3 4.6-10.2 [...] 11 .6-14.8 platelet count 132 10^3/MM^3 10*3/mm3 327-111 0324/02/11 leukocyte count, blood 4.8 10^3/MM^3 10*3/mm3 4.6-10.2 [...] 11 .6-14.8 platelet count 102 10^3/MM^3 10*3/mm3 148-814 5166/02/04 leukocyte count, blood 3.6 10^3/MM^3 10*3/mm3 4.6-10.2 [...] 11 .6-14.8 platelet count 70 10^3/MM^3 10*3/mm3 321-914 7019/01/28 leukocyte count, blood 4.2 10^3/MM^3 10*3/mm3 4.6-10.2 [...] 11 .6-14.8 platelet count 73 10^3/MM^3 10*3/mm3 004-698 6350/01/21 leukocyte count, blood 4.9 10^3/MM^3 10*3/mm3 4.6-10.2 [...] .6-14.8 platelet count 38 recounted 10^3/mm^3 10*3/mm3 576-639 3587/10/08 leukocyte count, blood 2.9 10^3/MM^3 10*3/mm3 4.6-10.2 [...] 11 .6-14.8 platelet count 229 10^3/MM^3 10*3/mm3 113-733 7728/10/17 leukocyte count, blood 12.0 10^3/MM^3 10*3/mm3 4.6-10.2 [...] 11 .6-14.8 platelet count 232 10^3/MM^3 10*3/mm3 178-285 4789/10/01 leukocyte count, blood 8.3 10^3/MM^3 10*3/mm3 4.6-10.2 [...] 11 .6-14.8 platelet count 378 10^3/MM^3 10*3/mm3 815-024 7096/12/03 leukocyte count, blood 8.2 10^3/MM^3 10*3/mm3 4.6-10.2 [...] Diff/Morphology - Chemistry sodium, serum 141 mmol/L 545-040 7973/11/25 potassium, serum 3.9 mmol/L 3.5-5.2 chloride, serum [...] 0.50 mg/dL 0.00-1.00 sodium, serum 137 mmol/L 224-708 1707/11/12 potassium, serum 3.2 mmol/L 3.5-5.2 chloride, serum [...] 0.40 mg/dL 0.00-1.00 sodium, serum 140 mmol/L 118-392 0044/12/17 potassium, serum 3.3 mmol/L 3.5-5.2 chloride, serum [...] 0.40 mg/dL 0.00-1.00 sodium, serum 138 mmol/L 944-203 5095/12/24 potassium, serum 3.7 mmol/L 3.5-5.2 chloride, serum [...] 0.50 mg/dL 0.00-1.00 sodium, serum 138 mmol/L 157-274 2108/11/05 potassium, serum 3.9 mmol/L 3.5-5.2 chloride, serum [...] 0.40 mg/dL 0.00-1.00 sodium, serum 135 mmol/L 967-822 8260/10/22 potassium, serum 3.0 mmol/L 3.5-5.2 chloride, serum [...] 0.50 mg/dL 0.00-1.00 sodium, serum 128 mmol/L 773-320 0298/10/29 potassium, serum 2.6 mmol/L 3.5-5.2 chloride, serum [...] 0.50 mg/dL 0.00-1.00 sodium, serum 141 mmol/L 129-122 6677/01/14 potassium, serum 3.9 mmol/L 3.5-5.2 chloride, serum [...] 11 .6-14.8 platelet count 22 10^3/MM^3 10*3/mm3 012-373 2233/10/22 leukocyte count, blood 14.7 10^3/MM^3 10*3/mm3 4.6-10.2 [...] 11 .6-14.8 platelet count 428 10^3/MM^3 10*3/mm3 918-224 4537/10/29 leukocyte count, blood 26.3 10^3/MM^3 10*3/mm3 4.6-10.2 [...] 11 .6-14.8 platelet count 268 10^3/MM^3 10*3/mm3 276-421 4444/11/12 leukocyte count, blood 12.1 10^3/MM^3 10*3/mm3 4.6-10.2 [...] 11 .6-14.8 platelet count 157 10^3/MM^3 10*3/mm3 185-591 1428/11/05 leukocyte count, blood 16.4 10^3/MM^3 10*3/mm3 4.6-10.2 [...] 11 .6-14.8 platelet count 215 10^3/MM^3 10*3/mm3 475-749 5103/12/24 leukocyte count, blood 14.0 10^3/MM^3 10*3/mm3 4.6-10.2 [...] 11 .6-14.8 platelet count 66 10^3/MM^3 10*3/mm3 679-506 4861/12/17 leukocyte count, blood 18.6 10^3/MM^3 10*3/mm3 4.6-10.2 [...] 11 .6-14.8 platelet count 75 10^3/MM^3 10*3/mm3 674-126 8326/11/25 leukocyte count, blood 21.1 10^3/MM^3 10*3/mm3 4.6-10.2 [...] 11 .6-14.8 platelet count 413 10^3/MM^3 10*3/mm3 087-945 5064/01/16 leukocyte count, blood 3.6 10^3/MM^3 10*3/mm3 4.6-10.2 [...] - Chem istry sodium, serum 141 mmol/L 615-024 4755/11/19 potassium, serum 3.9 mmol/L 3.5-5.2 chloride, serum [...] 0.50 mg/dL 0.00-1.00 sodium, serum 142 mmol/L 988-011 9801/12/10 potassium, serum 3.9 mmol/L 3.5-5.2 chloride, serum [...] Diff/Morphology - Chemistry sodium, serum 142 mmol/L 001-687 8812/12/31 potassium, serum 3.6 mmol/L 3.5-5.2 chloride, serum [...] 3.5-5.2 Encounters Code Encounter Date Provider Facility CPT-50199 Level 3 New Patient 01:46:11 [employer] Hope landers MD PhD [facility] Procedures Code Procedure Name Date Entry Date Standard Desc ription CPT-48394 Postop F/U Visit 15:47:49 CDT CPT-99890 Postop F/U Visit 15:21:02 CDT CPT-TCM Transitional Care Mgmt-High 07:52:27 CDT 20 20/06/01 CPT-92435 Venipuncture Draw Fee 13:51:18 CDT CPT-05178 Venipuncture Draw Fee 10:14:55 [employer] CPT-58411 Venipuncture Draw Fee 13:39:45 [employer] CPT-OV Office Visit 15:11:22 [employer] CPT-63782 Venipuncture Draw Fee 09:20:49 [employer] CPT-94356 Venipuncture Draw Fee 16:52:15 [employer] CPT-81444 Venipuncture Draw Fee 10:37:24 [employer] CPT-78439 Venipuncture Draw Fee 08:21:21 [employer] CPT-92441 Venipuncture Draw Fee 08:30:20 [employer] CPT-28785 Venipuncture Draw Fee 14:53:21 [employer] CPT-21107 Venipuncture Draw Fee 09:40:56 [employer] CPT-59664 Venipuncture Draw Fee 10:30:47 [employer] CPT-52320 Venipuncture Draw Fee 10:46:17 [employer] CPT-18405 Venipuncture Draw Fee 11:12:45 [employer] CPT-45534 Venipuncture Draw Fee 09:53:33 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 CPT-80247 Venipuncture Draw Fee 11:53:51 FLY WORKER CPT-87138 Venipuncture Draw Fee 10:33:50 FL[employer] WORKER CPT-72297 Venipuncture Draw Fee 10:05:01 FLY WORKER CPT-51181 Venipuncture Draw Fee 14:32:52 FLY WORKER CPT-89521 Venipuncture Draw Fee 09:46:13 FLY WORKER CPT-17696 Venipuncture Draw Fee 11:34:27 FLY WORKER CPT-62117 Venipuncture Draw Fee 13:17:16 FL[employer] WORKER CPT-49305 Venipuncture Draw Fee 12:05:39 CDT CPT-53033 Venipuncture Draw Fee 12:49:12 CDT CPT-27187 Venipuncture Draw Fee 12:37:18 CDT CPT-79013 Venipuncture Draw Fee 10:57:11 CDT CPT-80866 Venipuncture Draw Fee 13:47:40 CDT CPT-42325 Venipuncture Draw Fee 10:02:17 CDT CPT-42047 TB Tubersol 17:32:32 CDT CPT-OV Office Visit 16:21:53 CDT CPT-OV Office Visit 15:49:22 CDT CPT-OV Office Visit 17:16:31 CDT CPT-OV Office Visit 10:43:31 CDT
--- OUTSIDE RECORDS SUMMARY | 2019-02-09 13:16 | XMS REPORT | Clinical Summary ---
Author Author Renaldo, Florecita Munoz Organization [facility] Address Unknown Phone Unavailable Allergies, Adverse Reactions, [...] history of malignant neoplasm of gastrointestinal tract ABDOMINAL PAIN, RIGHT LOWER QUADRANT ICD-789.03 Inactive [...] Generic Name NDC Status Provider Patient Instruction CVS IRON 325 (65 FE) MG TABS 1 qd FERROUS BHATTI LFATE 73579923794 Active Adam Yates MD Active MAGNESIUM GLUCONATE 250 MG TABS 1 tab tid MAGN ESIUM GLUCONATE 10728913528 Active Adam Yates MD Active ATENOLOL 50 MG TABS 1/2 tab q other day m-w-f ATE NOLOL 08911727389 Active Adam Yates MD Active PROPRANOLOL HCL 80 MG TABS 1 tab tue. and thur. PROPRANOLOL HCL 07884003886 Active Adam Ytaes MD Active CYCLOBENZAPRINE HCL 10 MG TABS 1 tablet by mouth three times daily as needed for headaches CYCLOBENZAPRINE HCL 92726315636 No Longe r Active Adam Yates MD Active OMEPRAZOLE 20 MG CPDR 1 tablet by mouth daily for GERD OMEPRAZOLE 17963825416 No Longer Active Adam Yates MD A ctive ZOFRAN 8 MG TABS 1 tab by mouth every 12 hours prn 201 05/16/09 ONDANSETRON HCL 52675597338 No Longer Active Adam Yates MD Active PHENADOZ 25 MG SUPP 1 every 4 hrs. PRN PROMETHA ZINE HCL 26754765414 No Longer Active Adam Yates MD Active POTASSIUM CHLORIDE 20 MEQ PACK by mouth twice a day prn POTASSIUM CHLORIDE 82498732388 No Longer Active Adam Yates MD Active PROMETHAZINE HCL 25 MG TABS 1 Q. 4 hr. PRN PROM ETHAZINE HCL 15375238758 No Longer Active Adam Yates MD Active INNOPRAN XL 120 MG [id number] Take one by mouth daily 2 PROPRANOLOL HCL SR BEADS 51574509174 No Longer Active Adam Yates MD A ctive FLAGYL 500 MG TABS 1 pill by mouth three times daily, for diarrh ea METRONIDAZOLE 33705941786 No Longer Active Hope Benavidez MD PhD Active DYAZIDE 37.5-25 MG CAPS 1 qd TRIAMTERENE-HC TZ 83745327881 No Longer Active Hope Benavidez MD PhD Active PROZAC 20 MG CAPS 1 q d FLUOXETINE HCL 81545 863336 No Longer Active Hope Benavidez MD PhD Active SIMVASTATIN 40 MG TABS 1 qd SIMVASTATIN 004 97032531 No Longer Active Adam Yates MD Active MELOXICAM 15 MG TABS 1 qd MELOXICAM 8803602 4559 No Longer Active Adam Yates MD Active IMODIUM A-D 2 MG TABS 2 onset at diarrhea and prn. LOPERAMIDE HCL 21915381221 Active Hope Benavidez MD PhD Active EXCEDRIN EXTRA STRENGTH 250-250-65 MG TABS 1-2 q6h PRN headache 201 04/16/21 [id number] 15275224815 Active Hope Benavidez MD PhD Active FLAGYL 500 MG TABS 1 qid METRONIDAZOLE 51002 777865 No Longer Active Adam Yates MD Active LEVAQUIN 750 MG TABS 1 qd LEVOFLOXACIN 5486 4846996 No Longer Active Adam Yates MD Active ADULT ASPIRIN LOW STRENGTH 81 MG TBDP 1 qd A SPIRIN 58654244891 Active Hope Benavidez MD PhD Active LEVAQUIN 750 MG TABS 1 qd LEVAQUIN 750 MG T ABS 275190 LEVOFLOXACIN Inactive FLAGYL 500 MG TABS 1 qid FLAGYL 500 MG TABS 127051 METRONIDAZOLE Inactive MELOXICAM 15 MG TABS 1 qd MELOXICAM 15 MG T ABS 247304 MELOXICAM Inactive SIMVASTATIN 40 MG TABS 1 qd SIMVASTATIN 40 MG TABS 541521 SIMVASTATIN Inactive PROZAC 20 MG CAPS 1 q d PROZAC 20 MG CAPS 31 0385 FLUOXETINE HCL Inactive DYAZIDE 37.5-25 MG CAPS 1 qd DYAZIDE 37.5 -25 MG CAPS 563828 TRIAMTERENE-HCTZ Inactive INNOPRAN XL 120 MG [id number] Take one by mouth daily 2 INNOPRAN XL 120 MG [id number] PROPRANOLOL HCL SR BEADS Inactive PROMETHAZINE HCL 25 MG TABS 1 Q. 4 hr. PRN PROMETHAZINE HCL 25 MG TABS 382616 PROMETHAZINE HCL Inactive POTASSIUM CHLORIDE 20 MEQ PACK by mouth twice a day prn POTASSIUM CHLORIDE 20 MEQ PACK 626989 POTASSIUM CHLORIDE Inactive PHENADOZ 25 MG SUPP 1 every 4 hrs. PRN PHENADOZ 2 5 MG SUPP 745882 PROMETHAZINE HCL Inactive ZOFRAN 8 MG TABS 1 tab by mouth every 12 hours prn 201 05/16/09 ZOFRAN 8 MG TABS 392970 ONDANSETRON HCL Inactive OMEPRAZOLE 20 MG CPDR 1 tablet by mouth daily for GERD OMEPRAZOLE 20 MG CPDR 286341 OMEPRAZOLE Inactive CYCLOBENZAPRINE HCL 10 MG TABS 1 tablet by mouth three times daily as needed for headaches CYCLOBENZAPRINE HCL 10 MG TABS 458291 CYCLOBENZAPRINE HCL Inactive FLAGYL 500 MG TABS 1 pill by mouth three times daily, for diarrh ea FLAGYL 500 MG TABS 005311 METRONIDAZOLE Inactive Advance Directives Directive Description Start [...] - Chem istry sodium, serum 137 mmol/L 934-053 4127/11/01 potassium, serum 3.7 mmol/L 3.5-5.2 chloride, serum 100 mmol/L 98-107 carbon dioxide, venous blood 31.8 mmol/L 21.0-32 .0 blood glucose 98 mg/dL 65-110 calcium, serum 8.6 mg/dL 8.5-10.1 urea nitrogen, blood 23 mg/dL 7-18 creatinine, serum 1.50 mg/dL 0.60-1.30 sodium, serum 136 mmol/L 524-279 0730/05/02 potassium, serum 4.1 mmol/L 3.5-5.2 chloride, serum 99 mmol/L 98-107 carbon dioxide, venous blood 30.7 mmol/L 21.0-32 .0 blood glucose 79 mg/dL 65-110 calcium, serum 8.7 mg/dL 8.5-10.1 urea nitrogen, blood 11 mg/dL 7-18 creatinine, serum 1.10 mg/dL 0.60-1.30 Lab Report: [facility] - Chemistry sodium, serum 141 mmol/L potassium, serum 4.2 mmol/L blood glucose 66 mg/dL creatinine, serum 1.16 mg/dL Lab Report: CBC W/ DIFF, YANCI ESCOTO AN AEROBIC CX - Chemistry sodium, serum 137 mmol/L potassium, serum 3.8 mmol/L blood glucose 79 mg/dL creatinine, serum 1.02 mg/dL magnesium, serum 1.2 mg/dL Lab Report: CBC W/ DIFF, YANCI ESCOTO, NITZA AEROBIC CX - Hematology leukocyte count, blood [...] 11 .6-14.8 platelet count 133 10^3/MM^3 10*3/mm3 871-361 3488/01/17 leukocyte count, blood 3.1 10^3/MM^3 10*3/mm3 4.6-10.2 [...] 11 .6-14.8 platelet count 22 10^3/MM^3 10*3/mm3 112-367 7993/11/19 leukocyte count, blood 10.4 10^3/MM^3 10*3/mm3 4.6-10.2 [...] Verified By Repeat Analysis 10^3/mm ^3 10*3/mm3 092-605 6305/12/10 leukocyte count, blood 7.8 10^3/MM^3 10*3/mm3 4.6-10.2 [...] Panel - Chemistry sodium, serum 139 mmol/L 141-189 7310/12/03 potassium, serum 3.7 mmol/L 3.5-5.2 chloride, serum 99 mmol/L 98-107 carbon dioxide, venous blood 30.6 mmol/L 21.0-32 .0 blood glucose 117 mg/dL 65-110 urea nitrogen, blood 15 mg/dL 7-18 creatinine, serum 1.50 mg/dL 0.60-1.30 alanine aminotransferase (SGPT), serum 27 U/L aspartate aminotransferase (SGOT), serum 24 U/L -37 alkaline phosphatase, serum 169 U/L 50-136 calcium, serum 9.0 mg/dL 8.5-10.1 bilirubin, serum, total 0.40 mg/dL 0.00-1.00 sodium, serum 142 mmol/L 087-802 6370/01/03 potassium, serum 3.4 mmol/L 3.5-5.2 chloride, serum [...] 0.50 mg/dL 0.00-1.00 sodium, serum 137 mmol/L 728-037 3206/10/01 potassium, serum 3.5 mmol/L 3.5-5.2 chloride, serum [...] 0.60 mg/dL 0.00-1.00 sodium, serum 136 mmol/L 083-732 7375/10/08 potassium, serum 3.1 mmol/L 3.5-5.2 chloride, serum [...] 0.60 mg/dL 0.00-1.00 sodium, serum 139 mmol/L 621-560 0652/10/17 potassium, serum 3.1 mmol/L 3.5-5.2 chloride, serum [...] 0.30 mg/dL 0.00-1.00 sodium, serum 140 mmol/L 582-929 9608/01/06 potassium, serum 3.4 mmol/L 3.5-5.2 chloride, serum [...] 0.40 mg/dL 0.00-1.00 sodium, serum 139 mmol/L 291-690 8352/01/21 potassium, serum 3.4 mmol/L 3.5-5.2 chloride, serum [...] 0.40 mg/dL 0.00-1.00 sodium, serum 138 mmol/L 303-783 9039/01/28 potassium, serum 3.2 mmol/L 3.5-5.2 chloride, serum [...] serum, total 0.40 mg/dL 0.00-1.00 chloride, serum 100 mmol/L 98-107 carbon dioxide, [...] 0.70 mg/dL 0.00-1.00 sodium, serum 136 mmol/L 974-492 7851/02/11 potassium, serum 3.1 mmol/L 3.5-5.2 chloride, serum [...] 0.50 mg/dL 0.00-1.00 sodium, serum 140 mmol/L 063-757 8023/02/04 potassium, serum 3.6 mmol/L 3.5-5.2 sodium, serum 136 mmol/L 077-548 2560/04/03 potassium, serum 3.7 mmol/L 3.5-5.2 chloride, serum [...] 0.40 mg/dL 0.00-1.00 sodium, serum 139 mmol/L 521-191 2092/02/18 potassium, serum 3.6 mmol/L 3.5-5.2 chloride, serum [...] 0.50 mg/dL 0.00-1.00 sodium, serum 138 mmol/L 339-646 7537/08/14 potassium, serum 4.0 mmol/L 3.5-5.2 chloride, serum [...] 11 .6-14.8 platelet count 193 10^3/MM^3 10*3/mm3 396-630 4647/04/03 leukocyte count, blood 5.6 10^3/MM^3 10*3/mm3 4.6-10.2 [...] 11 .6-14.8 platelet count 246 10^3/MM^3 10*3/mm3 319-713 3855/01/28 erythrocyte (RBC) count 2.24 10^6/MM^3 10*6/mm3 4.04-5.4 8 lymphocytes as percent of blood leukocytes 29.1 % 20.5-51.1 monocytes as percent of blood leukocytes 9.4 % 1.7-9.3 neutrophils as percent of blood leukocytes 59.8 % 42.2-75.2 leukocyte count, blood 4.2 10^3/MM^3 10*3/mm3 4.6-10.2 leukocyte count, blood 4.0 10^3/MM^3 10*3/mm3 4.6-10.2 [...] 11 .6-14.8 platelet count 134 10^3/MM^3 10*3/mm3 077-173 4902/02/11 leukocyte count, blood 4.8 10^3/MM^3 10*3/mm3 4.6-10.2 [...] 11 .6-14.8 platelet count 102 10^3/MM^3 10*3/mm3 892-042 6636/02/04 leukocyte count, blood 3.6 10^3/MM^3 10*3/mm3 4.6-10.2 [...] 11 .6-14.8 platelet count 70 10^3/MM^3 10*3/mm3 119-275 2329/01/28 hemoglobin, blood 7.7 g/dL 12.0-16.0 hematocrit, blood 23.7 % 36.0-46.0 mean corpuscular volume, RBC 106 fL 80-97 mean corpuscular hemoglobin, RBC 34.6 pg 27. 0-31.2 mean corpuscular hemoglobin concentration, RBC 32.6 G/DL % 31.8-35.4 red blood cell distribution width 22.5 % 11 .6-14.8 platelet count 73 10^3/MM^3 10*3/mm3 101-365 4634/01/03 leukocyte count, blood 8.1 10^3/MM^3 10*3/mm3 4.6-10.2 [...] 11 .6-14.8 platelet count 96 10^3/MM^3 10*3/mm3 400-167 0996/01/21 leukocyte count, blood 4.9 10^3/MM^3 10*3/mm3 4.6-10.2 [...] .6-14.8 platelet count 38 recounted 10^3/mm^3 10*3/mm3 808-668 4871/10/08 leukocyte count, blood 2.9 10^3/MM^3 10*3/mm3 4.6-10.2 [...] 11 .6-14.8 platelet count 229 10^3/MM^3 10*3/mm3 307-047 1575/10/17 leukocyte count, blood 12.0 10^3/MM^3 10*3/mm3 4.6-10.2 [...] 11 .6-14.8 platelet count 232 10^3/MM^3 10*3/mm3 683-909 0905/10/01 leukocyte count, blood 8.3 10^3/MM^3 10*3/mm3 4.6-10.2 [...] 11 .6-14.8 platelet count 378 10^3/MM^3 10*3/mm3 956-179 1031/01/06 leukocyte count, blood 7.6 10^3/MM^3 10*3/mm3 4.6-10.2 [...] 11 .6-14.8 platelet count 132 10^3/MM^3 10*3/mm3 839-733 4405/12/03 leukocyte count, blood 8.2 10^3/MM^3 10*3/mm3 4.6-10.2 [...] Diff/Morphology - Chemistry sodium, serum 141 mmol/L 023-597 2789/11/25 potassium, serum 3.9 mmol/L 3.5-5.2 chloride, serum [...] 0.50 mg/dL 0.00-1.00 sodium, serum 137 mmol/L 527-674 9363/11/12 potassium, serum 3.2 mmol/L 3.5-5.2 chloride, serum [...] 0.40 mg/dL 0.00-1.00 sodium, serum 140 mmol/L 268-593 1943/12/17 potassium, serum 3.3 mmol/L 3.5-5.2 chloride, serum [...] 0.40 mg/dL 0.00-1.00 sodium, serum 138 mmol/L 121-974 3920/12/24 potassium, serum 3.7 mmol/L 3.5-5.2 chloride, serum [...] 0.50 mg/dL 0.00-1.00 sodium, serum 135 mmol/L 804-607 3480/10/22 potassium, serum 3.0 mmol/L 3.5-5.2 chloride, serum [...] 0.50 mg/dL 0.00-1.00 sodium, serum 138 mmol/L 783-395 7123/11/05 potassium, serum 3.9 mmol/L 3.5-5.2 chloride, serum [...] 0.40 mg/dL 0.00-1.00 sodium, serum 128 mmol/L 188-641 0419/10/29 potassium, serum 2.6 mmol/L 3.5-5.2 chloride, serum [...] 0.50 mg/dL 0.00-1.00 sodium, serum 141 mmol/L 898-424 5116/01/14 potassium, serum 3.9 mmol/L 3.5-5.2 chloride, serum [...] 11 .6-14.8 platelet count 22 10^3/MM^3 10*3/mm3 146-464 6771/10/22 leukocyte count, blood 14.7 10^3/MM^3 10*3/mm3 4.6-10.2 [...] 11 .6-14.8 platelet count 428 10^3/MM^3 10*3/mm3 331-287 2849/11/05 leukocyte count, blood 16.4 10^3/MM^3 10*3/mm3 4.6-10.2 [...] 11 .6-14.8 platelet count 215 10^3/MM^3 10*3/mm3 751-984 6589/11/12 leukocyte count, blood 12.1 10^3/MM^3 10*3/mm3 4.6-10.2 [...] 11 .6-14.8 platelet count 157 10^3/MM^3 10*3/mm3 836-529 9919/10/29 leukocyte count, blood 26.3 10^3/MM^3 10*3/mm3 4.6-10.2 [...] 11 .6-14.8 platelet count 268 10^3/MM^3 10*3/mm3 083-801 8186/12/24 leukocyte count, blood 14.0 10^3/MM^3 10*3/mm3 4.6-10.2 [...] 11 .6-14.8 platelet count 66 10^3/MM^3 10*3/mm3 326-257 7443/11/25 leukocyte count, blood 21.1 10^3/MM^3 10*3/mm3 4.6-10.2 [...] 11 .6-14.8 platelet count 46 10^3/MM^3 10*3/mm3 454-465 4553/12/17 leukocyte count, blood 18.6 10^3/MM^3 10*3/mm3 4.6-10.2 [...] 0.9 ng/mL carcinoembryonic antigen <0.5 ng/mL ng/mL carcinoembryonic antigen <0.5 ng/mL ng/mL Lab Report: cmp - Chemistry sodium, serum 142 mmol/L potassium, serum 4.0 mmol/L blood glucose 115 mg/dL creatinine, serum 1.24 mg/dL Lab Report: Comp. Metabolic Panel - Chem istry sodium, serum 141 mmol/L 493-162 3645/11/19 potassium, serum 3.9 mmol/L 3.5-5.2 chloride, serum [...] 0.50 mg/dL 0.00-1.00 sodium, serum 142 mmol/L 053-595 9223/12/10 potassium, serum 3.9 mmol/L 3.5-5.2 chloride, serum [...] Diff/Morphology - Chemistry sodium, serum 142 mmol/L 328-380 7299/12/31 potassium, serum 3.6 mmol/L 3.5-5.2 chloride, serum [...] Panel - Chemistry cholesterol, serum 209 mg/dL 815-493 5570/09/11 triglyceride, serum, fasting 113 mg/dL 30-200 HDL cholesterol, serum 50 mg/dL 32-96 LDL cholesterol, serum 136 mg/dL 0-130 Encounters Code Encounter Date Provider Facility CPT-22401 Level 3 New Patient 01:46:11 ENVIRONMENTAL FIELD TECHNICIAN Hope landers MD PhD [facility] Procedures Code Procedure Name Date Entry Date Standard Desc ription CPT-OV Office Visit 15:37:02 CDT CPT-77583 Postop F/U Visit 15:47:49 CDT CPT-48717 Postop F/U Visit 15:21:02 CDT [facility] Transitional Care Mgmt-High 07:52:27 CDT 20 20/06/01 CPT-31953 Venipuncture Draw Fee 13:51:18 CDT CPT-99865 Venipuncture Draw Fee 10:14:55 ENVIRONMENTAL FIELD TECHNICIAN CPT-12211 Venipuncture Draw Fee 13:39:45 ENVIRONMENTAL FIELD TECHNICIAN CPT-OV Office Visit 15:11:22 ENVIRONMENTAL FIELD TECHNICIAN CPT-99697 Venipuncture Draw Fee 09:20:49 ENVIRONMENTAL FIELD TECHNICIAN CPT-48208 Venipuncture Draw Fee 16:52:15 ENVIRONMENTAL FIELD TECHNICIAN CPT-01998 Venipuncture Draw Fee 10:37:24 ENVIRONMENTAL FIELD TECHNICIAN CPT-69204 Venipuncture Draw Fee 08:21:21 ENVIRONMENTAL FIELD TECHNICIAN CPT-73930 Venipuncture Draw Fee 08:30:20 ENVIRONMENTAL FIELD TECHNICIAN CPT-15601 Venipuncture Draw Fee 14:53:21 ENVIRONMENTAL FIELD TECHNICIAN CPT-45083 Venipuncture Draw Fee 09:40:56 ENVIRONMENTAL FIELD TECHNICIAN CPT-91290 Venipuncture Draw Fee 10:30:47 ENVIRONMENTAL FIELD TECHNICIAN CPT-70184 Venipuncture Draw Fee 10:46:17 ENVIRONMENTAL FIELD TECHNICIAN CPT-61005 Venipuncture Draw Fee 11:12:45 ENVIRONMENTAL FIELD TECHNICIAN CPT-32153 Venipuncture Draw Fee 09:53:33 ENVIRONMENTAL FIELD TECHNICIAN CPT-92327 Venipuncture Draw Fee 11:53:51 ENVIRONMENTAL FIELD TECHNICIAN CPT-09846 Venipuncture Draw Fee 10:33:50 ENVIRONMENTAL FIELD TECHNICIAN CPT-27501 Venipuncture Draw Fee 10:05:01 ENVIRONMENTAL FIELD TECHNICIAN CPT-92341 Venipuncture Draw Fee 14:32:52 ENVIRONMENTAL FIELD TECHNICIAN CPT-20645 Venipuncture Draw Fee 09:46:13 ENVIRONMENTAL FIELD TECHNICIAN CPT-99105 Venipuncture Draw Fee 11:34:27 ENVIRONMENTAL FIELD TECHNICIAN CPT-23501 Venipuncture Draw Fee 13:17:16 ENVIRONMENTAL FIELD TECHNICIAN CPT-77614 Venipuncture Draw Fee 12:05:39 CDT CPT-41590 Venipuncture Draw Fee 12:49:12 CDT CPT-92514 Venipuncture Draw Fee 12:37:18 CDT CPT-70360 Venipuncture Draw Fee 10:57:11 CDT CPT-83265 Venipuncture Draw Fee 13:47:40 CDT CPT-71889 Venipuncture Draw Fee 10:02:17 CDT CPT-27932 TB Tubersol 17:32:32 CDT CPT-OV Office Visit 16:21:53 CDT CPT-OV Office Visit 15:49:22 CDT CPT-OV Office Visit 17:16:31 CDT CPT-OV Office Visit 10:43:31 CDT
--- OUTSIDE RECORDS SUMMARY | 2019-02-09 13:17 | XMS REPORT ---
Author Author [facility] Medic [facility] YUDITH Rivera Organization [facility] Address [address] [id number] Phone [phone] Care Team Providers Care Certified Orthotist Practice Manager Name Role Phone OSITO BENAVIDEZ MD PP [phone] Summary purpose TRANSITION OF CARE AUTO GENERATION [...] tests and/or laboratory data RESULTS Radiology Results [id number] CT ABD/PEL W CONTRAST PACs Image DATE OF EXAM: Dec 17 2013 [id number] ABD/PELV W CON TRAST : RADIOLOGY REPORT [...] DO SAILAJA Ponce/dwight 12/17/2013 09:40:12/08 09:52:36 cc:Dr. Tenzin Benavidez This document has been electronically Signed by: On: CT CHEST W/CONT PACs Image DATE OF EXAM: Dec 17 2013 [id number] CHEST W CONTRA ST : RADIOLOGY REPORT DATE OF SERVICE: 12/17/13 HISTORY: Patient has colon cancer, this is a followup study. CT CHEST WITH [id number] HOURS Images were obtained from lung apices [...] goiter. Otherwi se negative for metastatic disease. DO SAILAJA Ponce/dwight 12/17/2013 09:40:12/08 09:51:08 cc:Dr. Tenzin Benavidez This document has been [...]
--- OUTSIDE RECORDS SUMMARY | 2019-02-09 13:17 | XMS REPORT | Clinical Summary ---
Author Author Renaldo, Florecita Munoz Organization [facility] Address Unknown Phone Unavailable Allergies, [...] (age-related) (natural) V49.8 1 Active Citlaly Roland [facility] Asymptomatic postmenopausal status (age- related) (natural) Diarrhea 787.91 Active Hope Benavidez MD PhD Diarrhea Osteoporosis 733.00 Active Hope Benavidez MD PhD Osteoporosis, unspecified ABDOMINAL PAIN, RIGHT LOWER QUADRANT ICD-789.03 Inactive Kian Joshua APRN ADENOCARCINOMA, COLON, CECUM ICD-153.4 Dick Yates MD ABDOMINAL PAIN, GENERALIZED ICD-789.07 Inactive Hope Benavidez MD PhD FEVER UNSPECIFIED ICD-780.60 Inactive Hope cohn MD PhD UNSPECIFIED VENOUS INSUFFICIENCY ICD-459.81 [place] ctive Adam Yates MD ADENOCARCINOMA, ASCENDING COLON ICD-153.6 Inac tive Hope Benavidez MD PhD Hyperkalemia ICD-276.7 Inactive oHpe Benavidez MD PhD Health maintenance exam ICD-V70.0 Bam Yates MD Aftercare following surgery of the teeth,oral cavity a nd digestive system, NEC ICD-V58.75 Inactive Adam Yates MD Colon cancer ICD-153.9 Inactive Adam luna MD Medication List Medication Instructions Start Date Stop Date Generic Name NDC Status Provider Patient Instruction PROLIA 60 MG/ML SOLN 1 shot every 6 months for osteoprosis DENOSUMAB 60902356884 Active Hope Benavidez MD PhD Active CALCIUM + D + K 750-500-40 MG-UNT-MCG TABS 1 tab by mouth tw ice daily CALCIUM-VITAMIN D-VITAMIN K 91201340663 Active Hope landers MD PhD Active DAILY VALUE MULTIVITAMIN TABS 1 tab by mouth twice daily MULTIPLE VITAMIN 56727062585 Active Hope Benavidez MD PhD Active FISH OIL 306 MG CAPS 1 tab by mouth three times daily OMEGA-3 FATTY ACIDS 69610579863 Active Hope Benavidez MD PhD Active LUTEIN 10 MG TABS 1 tab daily LUTEIN 10559786009 Act cash Hope Benavidez MD PhD Active FLORANEX PACK 1 pack three times daily, for bowel health LACTOBACILLUS 30857178947 Active Hope Benavidez MD PhD Active LOMOTIL 2.5-0.025 MG TABS 1 tab by mouth prn DIPHENOXYLATE-ATROPINE 15108551975 Active Hope Benavidez MD PhD Active TRIAMTERENE-HCTZ 37.5-25 MG TABS 1 tab by mouth daily TRIAMTERENE-HCTZ 81573667891 Active Hope Benavidez MD PhD Acti ve IRON 325 (65 FE) MG TABS 1 tab daily FERROUS SULF ATE 56880561872 Active Hope Benavidez MD PhD Active MAGNESIUM GLUCONATE 250 MG TABS 1 tab tid MAGN ESIUM GLUCONATE 47140657802 Active Adam Yates MD Active ATENOLOL 50 MG TABS 1/2 tab q other day m-w-f ATE NOLOL 63511108795 Active Adam Yates MD Active PROPRANOLOL HCL 80 MG TABS 1 tab tue. and thur. PROPRANOLOL HCL 24727747231 Active Adam Yates MD Active CYCLOBENZAPRINE HCL 10 MG TABS 1 tablet by mouth three times daily as needed for headaches CYCLOBENZAPRINE HCL 93752387475 No Longe r Active Adam Yates MD Active OMEPRAZOLE 20 MG CPDR 1 tablet by mouth daily for GERD OMEPRAZOLE 09606358563 No Longer Active Adam Yates MD A ctive ZOFRAN 8 MG TABS 1 tab by mouth every 12 hours prn 201 05/16/09 ONDANSETRON HCL 69266523263 No Longer Active Adam Yates MD Active PHENADOZ 25 MG SUPP 1 every 4 hrs. PRN PROMETHA ZINE HCL 51340213329 No Longer Active Adam Yates MD Active POTASSIUM CHLORIDE 20 MEQ PACK by mouth twice a day prn POTASSIUM CHLORIDE 27309155076 No Longer Active Adam Yates MD Active PROMETHAZINE HCL 25 MG TABS 1 Q. 4 hr. PRN PROM ETHAZINE HCL 66594632301 No Longer Active Adam Yates MD Active INNOPRAN XL 120 MG [id number] Take one by mouth daily 2 PROPRANOLOL HCL SR BEADS 33802482706 No Longer Active Adam Yates MD A ctive FLAGYL 500 MG TABS 1 pill by mouth three times daily, for diarrh ea METRONIDAZOLE 47798406697 No Longer Active Hope Benavidez MD PhD Active DYAZIDE 37.5-25 MG CAPS 1 qd TRIAMTERENE-HC TZ 86325459894 No Longer Active Hope Benavidez MD PhD Active PROZAC 20 MG CAPS 1 q d FLUOXETINE HCL 30684 793779 No Longer Active Hope Benavidez MD PhD Active SIMVASTATIN 40 MG TABS 1 qd SIMVASTATIN 004 30727901 No Longer Active Adam Yates MD Active MELOXICAM 15 MG TABS 1 qd MELOXICAM 1383265 6906 No Longer Active Adam Yates MD Active IMODIUM A-D 2 MG TABS 2 onset at diarrhea and prn. LOPERAMIDE HCL 62634566999 Active Hope Benavidez MD PhD Active EXCEDRIN EXTRA STRENGTH 250-250-65 MG TABS 1-2 q6h PRN headache 201 04/16/21 [id number] 02479026182 Active Hope Benavidez MD PhD Active FLAGYL 500 MG TABS 1 qid METRONIDAZOLE 95366 267864 No Longer Active Adam Yates MD Active LEVAQUIN 750 MG TABS 1 qd LEVOFLOXACIN 5486 5043959 No Longer Active Adam Yates MD Active ADULT ASPIRIN LOW STRENGTH 81 MG TBDP 1 qd A SPIRIN 68843982128 Active Hope Benavidez MD PhD Active LEVAQUIN 750 MG TABS 1 qd LEVAQUIN 750 MG T ABS 128715 LEVOFLOXACIN Inactive FLAGYL 500 MG TABS 1 qid FLAGYL 500 MG TABS 967387 METRONIDAZOLE Inactive MELOXICAM 15 MG TABS 1 qd MELOXICAM 15 MG T ABS 816469 MELOXICAM Inactive SIMVASTATIN 40 MG TABS 1 qd SIMVASTATIN 40 MG TABS 487515 SIMVASTATIN Inactive PROZAC 20 MG CAPS 1 q d PROZAC 20 MG CAPS 31 0385 FLUOXETINE HCL Inactive DYAZIDE 37.5-25 MG CAPS 1 qd DYAZIDE 37.5 -25 MG CAPS 902611 TRIAMTERENE-HCTZ Inactive INNOPRAN XL 120 MG [id number] Take one by mouth daily 2 INNOPRAN XL 120 MG [id number] PROPRANOLOL HCL SR BEADS Inactive PROMETHAZINE HCL 25 MG TABS 1 Q. 4 hr. PRN PROMETHAZINE HCL 25 MG TABS 083158 PROMETHAZINE HCL Inactive POTASSIUM CHLORIDE 20 MEQ PACK by mouth twice a day prn POTASSIUM CHLORIDE 20 MEQ PACK 141730 POTASSIUM CHLORIDE Inactive PHENADOZ 25 MG SUPP 1 every 4 hrs. PRN PHENADOZ 2 5 MG SUPP 914809 PROMETHAZINE HCL Inactive ZOFRAN 8 MG TABS 1 tab by mouth every 12 hours prn 201 05/16/09 ZOFRAN 8 MG TABS 639420 ONDANSETRON HCL Inactive OMEPRAZOLE 20 MG CPDR 1 tablet by mouth daily for GERD OMEPRAZOLE 20 MG CPDR 016215 OMEPRAZOLE Inactive CYCLOBENZAPRINE HCL 10 MG TABS 1 tablet by mouth three times daily as needed for headaches CYCLOBENZAPRINE HCL 10 MG TABS 033504 CYCLOBENZAPRINE HCL Inactive FLAGYL 500 MG TABS 1 pill by mouth three times daily, for diarrh ea FLAGYL 500 MG TABS 411241 METRONIDAZOLE Inactive Advance Directives Directive Description Start [...] U/L Chart Maintenance: Outside labs entered on [facility] PF - Hematology leukocyte count, blood 4.6 10*3/mm3 hemoglobin, blood 13.6 g/dL platelet count 162 10*3/mm3 Lab Report: Basic Metabolic Panel - Chem istry sodium, serum 136 mmol/L 653-879 8787/05/02 potassium, serum 4.1 mmol/L 3.5-5.2 chloride, serum [...] Verified By Repeat Analysis 10^3/mm ^3 10*3/mm3 572-641 4856/12/10 leukocyte count, blood 7.8 10^3/MM^3 10*3/mm3 4.6-10.2 [...] 11 .6-14.8 platelet count 102 10^3/MM^3 10*3/mm3 241-847 0953/01/08 leukocyte count, blood 9.0 10^3/MM^3 10*3/mm3 4.6-10.2 [...] 11 .6-14.8 platelet count 133 10^3/MM^3 10*3/mm3 714-042 9638/01/17 leukocyte count, blood 3.1 10^3/MM^3 10*3/mm3 4.6-10.2 [...] Panel - Chemistry sodium, serum 142 mmol/L 280-056 9503/01/03 potassium, serum 3.4 mmol/L 3.5-5.2 chloride, serum [...] 0.50 mg/dL 0.00-1.00 sodium, serum 139 mmol/L 829-770 8307/01/21 potassium, serum 3.4 mmol/L 3.5-5.2 chloride, serum [...] 0.40 mg/dL 0.00-1.00 sodium, serum 138 mmol/L 373-887 9719/01/28 potassium, serum 3.2 mmol/L 3.5-5.2 chloride, serum [...] 0.40 mg/dL 0.00-1.00 sodium, serum 140 mmol/L 924-398 2135/02/04 potassium, serum 3.6 mmol/L 3.5-5.2 chloride, serum [...] 0.70 mg/dL 0.00-1.00 sodium, serum 136 mmol/L 136-631 8909/02/11 potassium, serum 3.1 mmol/L 3.5-5.2 chloride, serum [...] 0.50 mg/dL 0.00-1.00 sodium, serum 139 mmol/L 535-823 5997/12/03 potassium, serum 3.7 mmol/L 3.5-5.2 chloride, serum [...] 0.40 mg/dL 0.00-1.00 sodium, serum 138 mmol/L 162-215 7444/08/14 potassium, serum 4.0 mmol/L 3.5-5.2 chloride, serum [...] 0.40 mg/dL 0.00-1.00 sodium, serum 139 mmol/L 713-242 0414/02/18 potassium, serum 3.6 mmol/L 3.5-5.2 chloride, serum [...] 0.50 mg/dL 0.00-1.00 sodium, serum 140 mmol/L 334-402 2833/01/06 potassium, serum 3.4 mmol/L 3.5-5.2 chloride, serum [...] 0.40 mg/dL 0.00-1.00 sodium, serum 136 mmol/L 879-290 9712/04/03 potassium, serum 3.7 mmol/L 3.5-5.2 chloride, serum [...] 11 .6-14.8 platelet count 246 10^3/MM^3 10*3/mm3 293-079 7453/08/14 leukocyte count, blood 5.8 10^3/MM^3 10*3/mm3 4.6-10.2 [...] 11 .6-14.8 platelet count 193 10^3/MM^3 10*3/mm3 403-110 9061/12/03 leukocyte count, blood 8.2 10^3/MM^3 10*3/mm3 4.6-10.2 [...] 11 .6-14.8 platelet count 98 10^3/MM^3 10*3/mm3 011-237 5687/01/03 leukocyte count, blood 8.1 10^3/MM^3 10*3/mm3 4.6-10.2 [...] 11 .6-14.8 platelet count 96 10^3/MM^3 10*3/mm3 120-666 6919/02/18 leukocyte count, blood 4.0 10^3/MM^3 10*3/mm3 4.6-10.2 [...] 11 .6-14.8 platelet count 134 10^3/MM^3 10*3/mm3 755-220 9396/02/11 leukocyte count, blood 4.8 10^3/MM^3 10*3/mm3 4.6-10.2 [...] 11 .6-14.8 platelet count 102 10^3/MM^3 10*3/mm3 835-121 2574/02/04 leukocyte count, blood 3.6 10^3/MM^3 10*3/mm3 4.6-10.2 [...] 11 .6-14.8 platelet count 70 10^3/MM^3 10*3/mm3 100-568 5064/01/28 leukocyte count, blood 4.2 10^3/MM^3 10*3/mm3 4.6-10.2 [...] 11 .6-14.8 platelet count 73 10^3/MM^3 10*3/mm3 984-680 4311/01/06 leukocyte count, blood 7.6 10^3/MM^3 10*3/mm3 4.6-10.2 [...] 11 .6-14.8 platelet count 132 10^3/MM^3 10*3/mm3 379-123 7333/01/21 leukocyte count, blood 4.9 10^3/MM^3 10*3/mm3 4.6-10.2 [...] Diff/Morphology - Chemistry sodium, serum 141 mmol/L 158-946 9908/01/14 potassium, serum 3.9 mmol/L 3.5-5.2 chloride, serum [...] 0.50 mg/dL 0.00-1.00 sodium, serum 140 mmol/L 726-008 9836/12/17 potassium, serum 3.3 mmol/L 3.5-5.2 chloride, serum 98 mmol/L 98-107 carbon dioxide, venous blood 33.1 mmol/L 21.0-32 .0 blood glucose 110 mg/dL 65-110 urea nitrogen, blood 20 mg/dL - creatinine, serum 1.80 mg/dL 0.60-1.30 alanine aminotransferase (SGPT), serum 25 U/L aspartate aminotransferase (SGOT), serum 27 U/L 15-37 alkaline phosphatase, serum 174 U/L 50-136 calcium, serum 8.2 mg/dL 8.5-10.1 bilirubin, serum, total 0.40 mg/dL 0.00-1.00 sodium, serum 138 mmol/L 648-705 7058/12/24 potassium, serum 3.7 mmol/L 3.5-5.2 chloride, serum [...] 0.50 mg/dL 0.00-1.00 sodium, serum 141 mmol/L 857-929 6892/11/25 potassium, serum 3.9 mmol/L 3.5-5.2 chloride, serum [...] Manual Diff/Morphology - Hematology leukocyte count, blood 21.1 10^3/MM^3 10*3/mm3 4.6-10.2 [...] 11 .6-14.8 platelet count 46 10^3/MM^3 10*3/mm3 196-802 2789/12/24 leukocyte count, blood 14.0 10^3/MM^3 10*3/mm3 4.6-10.2 [...] 11 .6-14.8 platelet count 66 10^3/MM^3 10*3/mm3 036-439 5355/12/17 leukocyte count, blood 18.6 10^3/MM^3 10*3/mm3 4.6-10.2 [...] 11 .6-14.8 platelet count 75 10^3/MM^3 10*3/mm3 006-528 2263/01/14 leukocyte count, blood 6.2 10^3/MM^3 10*3/mm3 4.6-10.2 [...] - Chem istry sodium, serum 141 mmol/L 006-568 1619/11/19 potassium, serum 3.9 mmol/L 3.5-5.2 chloride, serum [...] 0.50 mg/dL 0.00-1.00 sodium, serum 142 mmol/L 576-113 9755/12/10 potassium, serum 3.9 mmol/L 3.5-5.2 chloride, serum [...] Diff/Morphology - Chemistry sodium, serum 142 mmol/L 026-270 4562/12/31 potassium, serum 3.6 mmol/L 3.5-5.2 chloride, serum [...] Panel - Chemistry cholesterol, serum 209 mg/dL 530-506 1002/09/11 triglyceride, serum, fasting 113 mg/dL 30-200 HDL cholesterol, serum 50 mg/dL 32-96 LDL cholesterol, serum 136 mg/dL 0-130 Encounters Code Encounter Date Provider Facility CPT-37396 Level 4 Est. Patient 20:04:51 CDT Hope cohn MD PhD [facility] CPT-68406 Level 3 New Patient 01:46:11 CAUSTIC OPERATOR Hope landers MD PhD [facility] Procedures Code Procedure Name Date Entry Date Standard Desc ription CPT-G0008 Administration of Influenza Virus Vaccine 13:36:47 CDT CPT-86282 Fluzone High-Dose Intramuscular Suspension 11/15 13:36:47 CDT CPT-J0897 Prolia 60 mg 08:50:41 CDT CPT-03203 Abx/Therapy Injection 08:50:41 CDT CPT-28230 Bone Density 12:06:12 CDT CPT-74002 Bone Density 08:54:40 CDT CPT-OV Office Visit 15:37:02 CDT CPT-31812 Postop F/U Visit 15:47:49 CDT CPT-12995 Postop F/U Visit 15:21:02 CDT CPT-[facility] Transitional Care Mgmt-High 07:52:27 CDT 20 20/06/01 CPT-72586 Venipuncture Draw Fee 13:51:18 CDT CPT-55708 Venipuncture Draw Fee 10:14:55 CAUSTIC OPERATOR CPT-49481 Venipuncture Draw Fee 13:39:45 CAUSTIC OPERATOR CPT-OV Office Visit 15:11:22 CAUSTIC OPERATOR CPT-17948 Venipuncture Draw Fee 09:20:49 CAUSTIC OPERATOR CPT-04858 Venipuncture Draw Fee 16:52:15 CAUSTIC OPERATOR CPT-32967 Venipuncture Draw Fee 10:37:24 CAUSTIC OPERATOR CPT-71293 Venipuncture Draw Fee 08:21:21 CAUSTIC OPERATOR CPT-72067 Venipuncture Draw Fee 08:30:20 CAUSTIC OPERATOR CPT-98817 Venipuncture Draw Fee 14:53:21 CAUSTIC OPERATOR CPT-92037 Venipuncture Draw Fee 09:40:56 CAUSTIC OPERATOR CPT-50754 Venipuncture Draw Fee 10:30:47 CAUSTIC OPERATOR CPT-43886 Venipuncture Draw Fee 10:46:17 CAUSTIC OPERATOR CPT-23555 Venipuncture Draw Fee 11:12:45 CAUSTIC OPERATOR CPT-18581 Venipuncture Draw Fee 09:53:33 CAUSTIC OPERATOR CPT-33542 Venipuncture Draw Fee 11:53:51 CAUSTIC OPERATOR CPT-50915 Venipuncture Draw Fee 10:33:50 CAUSTIC OPERATOR CPT-42689 Venipuncture Draw Fee 10:05:01 CAUSTIC OPERATOR CPT-56047 Venipuncture Draw Fee 14:32:52 CAUSTIC OPERATOR CPT-71051 Venipuncture Draw Fee 09:46:13 CAUSTIC OPERATOR CPT-80544 Venipuncture Draw Fee 11:34:27 CAUSTIC OPERATOR CPT-54054 Venipuncture Draw Fee 13:17:16 CAUSTIC OPERATOR CPT-54813 Venipuncture Draw Fee 12:05:39 CDT CPT-12485 Venipuncture Draw Fee 12:49:12 CDT CPT-09003 Venipuncture Draw Fee 12:37:18 CDT CPT-28558 Venipuncture Draw Fee 10:57:11 CDT CPT-89796 Venipuncture Draw Fee 13:47:40 CDT CPT-02182 Venipuncture Draw Fee 10:02:17 CDT CPT-71231 TB Tubersol 17:32:32 CDT CPT-OV Office Visit 16:21:53 CDT CPT-OV Office Visit 15:49:22 CDT CPT-OV Office Visit 17:16:31 CDT CPT-OV Office Visit 10:43:31 CDT
--- OUTSIDE RECORDS SUMMARY | 2019-02-09 13:17 | XMS REPORT | Clinical Summary ---
Author Author Renaldo, Florecita Munoz Organization [facility] Address Unknown Phone Unavailable Allergies, [...] (age-related) (natural) V49.8 1 Active Citlaly Roland A Asymptomatic postmenopausal status (age- related) (natural) Diarrhea [...] mouth tw ice daily CALCIUM-VITAMIN D-VITAMIN K 26290176785 Active Hope landers MD PhD Active DAILY VALUE MULTIVITAMIN TABS 1 tab by mouth twice daily MULTIPLE VITAMIN 08062470013 Active Hope Benavidez MD PhD Active FISH OIL 306 MG CAPS 1 tab by mouth three times daily OMEGA-3 FATTY ACIDS 86152602119 Active Hope Benavidez MD PhD Active LUTEIN 10 MG TABS 1 tab daily LUTEIN 79590194107 Act cash Hope Benavidez MD PhD Active FLORANEX PACK 1 pack three times daily, for bowel health LACTOBACILLUS 06664519045 Active Hope Benavidez MD PhD Active LOMOTIL 2.5-0.025 MG TABS 1 tab by mouth prn DIPHENOXYLATE-ATROPINE 97885735999 Active Hope Benavidez MD PhD Active TRIAMTERENE-HCTZ 37.5-25 MG TABS 1 tab by mouth daily TRIAMTERENE-HCTZ 02099145514 Active Hope Benavidez MD PhD Acti ve IRON 325 (65 FE) MG TABS 1 tab daily FERROUS SULF ATE 45794425127 Active Hope Benavidez MD PhD Active MAGNESIUM GLUCONATE 250 MG TABS 1 tab tid MAGN ESIUM GLUCONATE 14433376309 Active Adam Yates MD Active ATENOLOL 50 MG TABS 1/2 tab q other day m-w-f ATE NOLOL 88932672063 Active Adam Yates MD Active PROPRANOLOL HCL 80 MG TABS 1 tab tue. and thur. PROPRANOLOL HCL 22940689808 Active Adam Yates MD Active CYCLOBENZAPRINE HCL 10 MG TABS 1 tablet by mouth three times daily as needed for headaches CYCLOBENZAPRINE HCL 44331717138 No Longe r Active Adam Yates MD Active OMEPRAZOLE 20 MG CPDR 1 tablet by mouth daily for GERD OMEPRAZOLE 69320575681 No Longer Active Adam Yates MD A ctive ZOFRAN 8 MG TABS 1 tab by mouth every 12 hours prn 201 05/16/09 ONDANSETRON HCL 25527759515 No Longer Active Adam Yates MD Active PHENADOZ 25 MG SUPP 1 every 4 hrs. PRN PROMETHA ZINE HCL 78895414294 No Longer Active Adam Yates MD Active POTASSIUM CHLORIDE 20 MEQ PACK by mouth twice a day prn POTASSIUM CHLORIDE 56032213265 No Longer Active Adam Yates MD Active PROMETHAZINE HCL 25 MG TABS 1 Q. 4 hr. PRN PROM ETHAZINE HCL 99296374207 No Longer Active Adam Yates MD Active INNOPRAN XL 120 MG [id number] Take one by mouth daily 2 PROPRANOLOL HCL SR BEADS 22511496816 No Longer Active Adam Yates MD A ctive FLAGYL 500 MG TABS 1 pill by mouth three times daily, for diarrh ea METRONIDAZOLE 88959233184 No Longer Active Hope Benavidez MD PhD Active DYAZIDE 37.5-25 MG CAPS 1 qd TRIAMTERENE-HC TZ 72252076852 No Longer Active Hope Benavidez MD PhD Active PROZAC 20 MG CAPS 1 q d FLUOXETINE HCL 64025 013133 No Longer Active Hope Benavidez MD PhD Active SIMVASTATIN 40 MG TABS 1 qd SIMVASTATIN 004 72995600 No Longer Active Adam Yates MD Active MELOXICAM 15 MG TABS 1 qd MELOXICAM 3213851 1558 No Longer Active Adam Yates MD Active IMODIUM A-D 2 MG TABS 2 onset at diarrhea and prn. LOPERAMIDE HCL 52704313294 Active Hope Benavidez MD PhD Active EXCEDRIN EXTRA STRENGTH 250-250-65 MG TABS 1-2 q6h PRN headache 201 04/16/21 [id number] 62382696680 Active Hope Benavidez MD PhD Active FLAGYL 500 MG TABS 1 qid METRONIDAZOLE 05355 258540 No Longer Active Adam Yates MD Active LEVAQUIN 750 MG TABS 1 qd LEVOFLOXACIN 5486 4203321 No Longer Active Adam Yates MD Active ADULT ASPIRIN LOW STRENGTH 81 MG TBDP 1 qd A SPIRIN 14610776261 Active Hope Benavidez MD PhD Active LEVAQUIN 750 MG TABS 1 qd LEVAQUIN 750 MG T ABS 356027 LEVOFLOXACIN Inactive FLAGYL 500 MG TABS 1 qid FLAGYL 500 MG TABS 725620 METRONIDAZOLE Inactive MELOXICAM 15 MG TABS 1 qd MELOXICAM 15 MG T ABS 091226 MELOXICAM Inactive SIMVASTATIN 40 MG TABS 1 qd SIMVASTATIN 40 MG TABS 376682 SIMVASTATIN Inactive PROZAC 20 MG CAPS 1 q d PROZAC 20 MG CAPS 31 0385 FLUOXETINE HCL Inactive DYAZIDE 37.5-25 MG CAPS 1 qd DYAZIDE 37.5 -25 MG CAPS 258103 TRIAMTERENE-HCTZ Inactive INNOPRAN XL 120 MG [id number] Take one by mouth daily 2 INNOPRAN XL 120 MG [id number]-[id number] PROPRANOLOL HCL SR BEADS Inactive PROMETHAZINE HCL 25 MG TABS 1 Q. 4 hr. PRN PROMETHAZINE HCL 25 MG TABS 734484 PROMETHAZINE HCL Inactive POTASSIUM CHLORIDE 20 MEQ PACK by mouth twice a day prn POTASSIUM CHLORIDE 20 MEQ PACK 696663 POTASSIUM CHLORIDE Inactive PHENADOZ 25 MG SUPP 1 every 4 hrs. PRN PHENADOZ 2 5 MG SUPP 319971 PROMETHAZINE HCL Inactive ZOFRAN 8 MG TABS 1 tab by mouth every 12 hours prn 201 05/16/09 ZOFRAN 8 MG TABS 758639 ONDANSETRON HCL Inactive OMEPRAZOLE 20 MG CPDR 1 tablet by mouth daily for GERD OMEPRAZOLE 20 MG CPDR 429759 OMEPRAZOLE Inactive CYCLOBENZAPRINE HCL 10 MG TABS 1 tablet by mouth three times daily as needed for headaches CYCLOBENZAPRINE HCL 10 MG TABS 361656 CYCLOBENZAPRINE HCL Inactive FLAGYL 500 MG TABS 1 pill by mouth three times daily, for diarrh ea FLAGYL 500 MG TABS 176384 METRONIDAZOLE Inactive Advance Directives Directive Description Start [...] - Chem istry sodium, serum 137 mmol/L 406-969 9626/11/01 potassium, serum 3.7 mmol/L 3.5-5.2 chloride, serum 100 mmol/L 98-107 carbon dioxide, venous blood 31.8 mmol/L 21.0-32 .0 blood glucose 98 mg/dL 65-110 calcium, serum 8.6 mg/dL 8.5-10.1 urea nitrogen, blood 23 mg/dL 7-18 creatinine, serum 1.50 mg/dL 0.60-1.30 potassium, serum 4.1 mmol/L 3.5-5.2 chloride, serum 99 mmol/L 98-107 carbon dioxide, venous blood 30.7 mmol/L 21.0-32 .0 blood glucose 79 mg/dL 65-110 calcium, serum 8.7 mg/dL 8.5-10.1 sodium, serum 136 mmol/L 040-061 8072/05/02 urea nitrogen, blood 11 mg/dL 7-18 creatinine, serum 1.10 mg/dL 0.60-1.30 Lab Report: [facility] - Chemistry sodium, serum 141 mmol/L potassium, serum 4.2 mmol/L blood glucose 66 mg/dL creatinine, serum 1.16 mg/dL Lab Report: CBC W/ DIFF, [facility], [facility], AN AEROBIC CX - Chemistry sodium, serum 137 mmol/L potassium, serum 3.8 mmol/L blood glucose 79 mg/dL creatinine, serum 1.02 mg/dL magnesium, serum 1.2 mg/dL Lab Report: CBC W/ DIFF, [facility] - Hematology leukocyte [...] 11 .6-14.8 platelet count 133 10^3/MM^3 10*3/mm3 939-171 1282/01/17 leukocyte count, blood 3.1 10^3/MM^3 10*3/mm3 4.6-10.2 [...] 11 .6-14.8 platelet count 22 10^3/MM^3 10*3/mm3 174-577 6207/11/19 leukocyte count, blood 10.4 10^3/MM^3 10*3/mm3 4.6-10.2 [...] Verified By Repeat Analysis 10^3/mm ^3 10*3/mm3 735-730 9566/12/10 leukocyte count, blood 7.8 10^3/MM^3 10*3/mm3 4.6-10.2 [...] Panel - Chemistry sodium, serum 139 mmol/L 175-471 4531/12/03 potassium, serum 3.7 mmol/L 3.5-5.2 chloride, serum [...] 0.40 mg/dL 0.00-1.00 sodium, serum 142 mmol/L 905-669 0212/01/03 potassium, serum 3.4 mmol/L 3.5-5.2 chloride, serum [...] 0.50 mg/dL 0.00-1.00 sodium, serum 137 mmol/L 542-817 9032/10/01 potassium, serum 3.5 mmol/L 3.5-5.2 chloride, serum 96 mmol/L 98-107 carbon dioxide, venous blood 33.5 mmol/L 21.0-32 .0 blood glucose 121 mg/dL 65-110 urea nitrogen, blood 23 mg/dL 7-18 creatinine, serum 1.30 mg/dL 0.60-1.30 alanine aminotransferase (SGPT), serum 17 U/L aspartate aminotransferase (SGOT), serum 17 U/L -37 alkaline phosphatase, serum 109 U/L 50-136 calcium, serum 8.8 mg/dL 8.5-10.1 bilirubin, serum, total 0.60 mg/dL 0.00-1.00 sodium, serum 136 mmol/L 655-670 2958/10/08 potassium, serum 3.1 mmol/L 3.5-5.2 chloride, serum 96 mmol/L 98-107 carbon dioxide, venous blood 32.7 mmol/L 21.0-32 .0 blood glucose 102 mg/dL 65-110 urea nitrogen, blood 35 mg/dL 7-18 creatinine, serum 1.40 mg/dL 0.60-1.30 alanine aminotransferase (SGPT), serum 17 U/L - aspartate aminotransferase (SGOT), serum 17 U/L 15-37 alkaline phosphatase, serum 145 U/L 50-136 calcium, serum 7.9 mg/dL 8.5-10.1 bilirubin, serum, total 0.60 mg/dL 0.00-1.00 sodium, serum 139 mmol/L 055-930 4119/10/17 potassium, serum 3.1 mmol/L 3.5-5.2 chloride, serum [...] 0.30 mg/dL 0.00-1.00 sodium, serum 140 mmol/L 817-155 1204/01/06 potassium, serum 3.4 mmol/L 3.5-5.2 chloride, serum [...] 0.40 mg/dL 0.00-1.00 sodium, serum 139 mmol/L 725-825 7601/01/21 potassium, serum 3.4 mmol/L 3.5-5.2 chloride, serum [...] 0.40 mg/dL 0.00-1.00 sodium, serum 138 mmol/L 709-619 3481/01/28 potassium, serum 3.2 mmol/L 3.5-5.2 chloride, serum [...] 0.40 mg/dL 0.00-1.00 sodium, serum 140 mmol/L 396-566 3805/02/04 potassium, serum 3.6 mmol/L 3.5-5.2 chloride, serum [...] 0.70 mg/dL 0.00-1.00 sodium, serum 136 mmol/L 750-298 4031/02/11 potassium, serum 3.1 mmol/L 3.5-5.2 chloride, serum [...] 0.50 mg/dL 0.00-1.00 sodium, serum 136 mmol/L 601-462 6122/04/03 potassium, serum 3.7 mmol/L 3.5-5.2 chloride, serum [...] 0.40 mg/dL 0.00-1.00 sodium, serum 139 mmol/L 325-621 5891/02/18 potassium, serum 3.6 mmol/L 3.5-5.2 chloride, serum [...] 8.5-10.1 bilirubin, serum, total 0.50 mg/dL 0.00-1.00 calcium, serum 9.8 mg/dL 8.5-10.1 bilirubin, serum, total 0.40 mg/dL 0.00-1.00 sodium, serum 138 mmol/L 933-995 1905/08/14 potassium, serum 4.0 mmol/L 3.5-5.2 chloride, serum 100 mmol/L 98-107 carbon dioxide, venous blood 28.7 mmol/L 21.0-32 .0 blood glucose 87 mg/dL 65-110 urea nitrogen, blood 25 mg/dL 7-18 creatinine, serum 1.20 mg/dL 0.60-1.30 alanine aminotransferase (SGPT), serum 38 U/L - aspartate aminotransferase (SGOT), serum 32 U/L 15-37 alkaline phosphatase, serum 198 U/L 50-136 Lab Report: CBC W/DIFF, Comp. Metabolic Panel [...] 11 .6-14.8 platelet count 193 10^3/MM^3 10*3/mm3 449-534 5999/04/03 hemoglobin, blood 8.7 g/dL 12.0-16.0 hematocrit, blood 26.1 % 36.0-46.0 mean corpuscular volume, RBC 106 fL 80-97 mean corpuscular hemoglobin, RBC 35.4 pg 27. 0-31.2 mean corpuscular hemoglobin concentration, RBC 33.3 G/DL % 31.8-35.4 red blood cell distribution width 15.4 % 11 .6-14.8 platelet count 246 10^3/MM^3 10*3/mm3 110-687 9570/04/03 erythrocyte (RBC) count 2.46 10^6/MM^3 10*6/mm3 4.04-5.4 8 lymphocytes as percent of blood leukocytes 21.8 % 20.5-51.1 monocytes as percent of blood leukocytes 9.5 % 1.7-9.3 neutrophils as percent of blood leukocytes 66.6 % 42.2-75.2 leukocyte count, blood 5.6 10^3/MM^3 10*3/mm3 4.6-10.2 leukocyte count, blood 4.0 [...] 11 .6-14.8 platelet count 134 10^3/MM^3 10*3/mm3 904-814 4924/02/11 leukocyte count, blood 4.8 10^3/MM^3 10*3/mm3 4.6-10.2 [...] 11 .6-14.8 platelet count 102 10^3/MM^3 10*3/mm3 218-026 0927/02/04 leukocyte count, blood 3.6 10^3/MM^3 10*3/mm3 4.6-10.2 [...] 11 .6-14.8 platelet count 70 10^3/MM^3 10*3/mm3 065-607 0009/01/28 leukocyte count, blood 4.2 10^3/MM^3 10*3/mm3 4.6-10.2 [...] 11 .6-14.8 platelet count 73 10^3/MM^3 10*3/mm3 126-357 5456/01/03 leukocyte count, blood 8.1 10^3/MM^3 10*3/mm3 4.6-10.2 [...] 11 .6-14.8 platelet count 96 10^3/MM^3 10*3/mm3 388-599 0037/01/21 leukocyte count, blood 4.9 10^3/MM^3 10*3/mm3 4.6-10.2 [...] .6-14.8 platelet count 38 recounted 10^3/mm^3 10*3/mm3 339-043 9876/10/08 leukocyte count, blood 2.9 10^3/MM^3 10*3/mm3 4.6-10.2 [...] 11 .6-14.8 platelet count 229 10^3/MM^3 10*3/mm3 805-932 9611/10/17 leukocyte count, blood 12.0 10^3/MM^3 10*3/mm3 4.6-10.2 [...] 11 .6-14.8 platelet count 232 10^3/MM^3 10*3/mm3 802-271 8535/10/01 leukocyte count, blood 8.3 10^3/MM^3 10*3/mm3 4.6-10.2 [...] 11 .6-14.8 platelet count 378 10^3/MM^3 10*3/mm3 828-799 4920/01/06 leukocyte count, blood 7.6 10^3/MM^3 10*3/mm3 4.6-10.2 [...] 11 .6-14.8 platelet count 132 10^3/MM^3 10*3/mm3 732-721 6399/12/03 leukocyte count, blood 8.2 10^3/MM^3 10*3/mm3 4.6-10.2 [...] Diff/Morphology - Chemistry sodium, serum 141 mmol/L 288-233 1422/11/25 potassium, serum 3.9 mmol/L 3.5-5.2 chloride, serum [...] 0.50 mg/dL 0.00-1.00 sodium, serum 137 mmol/L 267-634 5239/11/12 potassium, serum 3.2 mmol/L 3.5-5.2 chloride, serum [...] 0.40 mg/dL 0.00-1.00 sodium, serum 140 mmol/L 192-641 4567/12/17 potassium, serum 3.3 mmol/L 3.5-5.2 chloride, serum [...] 0.40 mg/dL 0.00-1.00 sodium, serum 138 mmol/L 723-345 8900/12/24 potassium, serum 3.7 mmol/L 3.5-5.2 chloride, serum [...] 0.50 mg/dL 0.00-1.00 sodium, serum 135 mmol/L 108-573 5393/10/22 potassium, serum 3.0 mmol/L 3.5-5.2 chloride, serum [...] 0.50 mg/dL 0.00-1.00 sodium, serum 138 mmol/L 222-015 8472/11/05 potassium, serum 3.9 mmol/L 3.5-5.2 chloride, serum [...] 0.40 mg/dL 0.00-1.00 sodium, serum 128 mmol/L 500-944 2231/10/29 potassium, serum 2.6 mmol/L 3.5-5.2 chloride, serum 95 mmol/L 98-107 carbon dioxide, venous blood 35.6 mmol/L 21.0-32 .0 blood glucose 86 mg/dL 65-110 urea nitrogen, blood 25 mg/dL 7- creatinine, serum 1.50 mg/dL 0.60-1.30 alanine aminotransferase (SGPT), serum 34 U/L aspartate aminotransferase (SGOT), serum 38 U/L 15-37 alkaline phosphatase, serum 242 U/L 50-136 calcium, serum 9.4 mg/dL 8.5-10.1 bilirubin, serum, total 0.50 mg/dL 0.00-1.00 sodium, serum 141 mmol/L 868-951 7954/01/14 potassium, serum 3.9 mmol/L 3.5-5.2 chloride, serum [...] 11 .6-14.8 platelet count 22 10^3/MM^3 10*3/mm3 597-885 6110/10/22 leukocyte count, blood 14.7 10^3/MM^3 10*3/mm3 4.6-10.2 [...] 11 .6-14.8 platelet count 428 10^3/MM^3 10*3/mm3 057-955 3641/11/05 leukocyte count, blood 16.4 10^3/MM^3 10*3/mm3 4.6-10.2 [...] 11 .6-14.8 platelet count 215 10^3/MM^3 10*3/mm3 147-408 0331/11/12 leukocyte count, blood 12.1 10^3/MM^3 10*3/mm3 4.6-10.2 [...] 11 .6-14.8 platelet count 157 10^3/MM^3 10*3/mm3 231-287 8042/10/29 leukocyte count, blood 26.3 10^3/MM^3 10*3/mm3 4.6-10.2 [...] 11 .6-14.8 platelet count 268 10^3/MM^3 10*3/mm3 075-606 3892/12/24 leukocyte count, blood 14.0 10^3/MM^3 10*3/mm3 4.6-10.2 [...] 11 .6-14.8 platelet count 66 10^3/MM^3 10*3/mm3 832-177 5243/11/25 leukocyte count, blood 21.1 10^3/MM^3 10*3/mm3 4.6-10.2 [...] 11 .6-14.8 platelet count 46 10^3/MM^3 10*3/mm3 339-879 3251/12/17 leukocyte count, blood 18.6 10^3/MM^3 10*3/mm3 4.6-10.2 [...] - Chem istry sodium, serum 141 mmol/L 480-850 4621/11/19 potassium, serum 3.9 mmol/L 3.5-5.2 chloride, serum [...] 0.50 mg/dL 0.00-1.00 sodium, serum 142 mmol/L 597-658 8578/12/10 potassium, serum 3.9 mmol/L 3.5-5.2 chloride, serum [...] Diff/Morphology - Chemistry sodium, serum 142 mmol/L 913-053 1538/12/31 potassium, serum 3.6 mmol/L 3.5-5.2 chloride, serum [...] Panel - Chemistry cholesterol, serum 209 mg/dL 191-144 5105/09/11 triglyceride, serum, fasting 113 mg/dL 30-200 HDL cholesterol, serum 50 mg/dL 32-96 LDL cholesterol, serum 136 mg/dL 0-130 Encounters Code Encounter Date Provider Facility CPT-97937 Level 4 Est. 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 Hope alnders MD PhD [facility] Procedures Code Procedure Name Date Entry Date Standard Desc ription CPT-OV Office Visit 15:37:02 CDT CPT-42399 Postop F/U Visit 15:47:49 CDT CPT-88819 Postop F/U Visit 15:21:02 CDT CPT-TCM Transitional Care Mgmt-High 07:52:27 CDT 20 20/06/01 CPT-82422 Venipuncture Draw Fee 13:51:18 CDT CPT-21408 Venipuncture Draw Fee 10:14:55 EXTRACTING MACHINE OPERATOR CPT-77910 Venipuncture Draw Fee 13:39:45 EXTRACTING MACHINE OPERATOR CPT-OV Office Visit 15:11:22 EXTRACTING MACHINE OPERATOR CPT-07273 Venipuncture Draw Fee 09:20:49 EXTRACTING MACHINE OPERATOR CPT-00659 Venipuncture Draw Fee 16:52:15 EXTRACTING MACHINE OPERATOR CPT-24604 Venipuncture Draw Fee 10:37:24 EXTRACTING MACHINE OPERATOR CPT-07286 Venipuncture Draw Fee 08:21:21 EXTRACTING MACHINE OPERATOR CPT-81452 Venipuncture Draw Fee 08:30:20 EXTRACTING MACHINE OPERATOR CPT-23833 Venipuncture Draw Fee 14:53:21 EXTRACTING MACHINE OPERATOR CPT-34698 Venipuncture Draw Fee 09:40:56 EXTRACTING MACHINE OPERATOR CPT-05088 Venipuncture Draw Fee 10:30:47 EXTRACTING MACHINE OPERATOR CPT-77563 Venipuncture Draw Fee 10:46:17 EXTRACTING MACHINE OPERATOR CPT-77569 Venipuncture Draw Fee 11:12:45 EXTRACTING MACHINE OPERATOR CPT-13521 Venipuncture Draw Fee 09:53:33 EXTRACTING MACHINE OPERATOR CPT-99370 Venipuncture Draw Fee 11:53:51 EXTRACTING MACHINE OPERATOR CPT-50373 Venipuncture Draw Fee 10:33:50 EXTRACTING MACHINE OPERATOR CPT-53663 Venipuncture Draw Fee 10:05:01 EXTRACTING MACHINE OPERATOR CPT-55255 Venipuncture Draw Fee 14:32:52 EXTRACTING MACHINE OPERATOR CPT-57970 Venipuncture Draw Fee 09:46:13 EXTRACTING MACHINE OPERATOR CPT-36553 Venipuncture Draw Fee 11:34:27 EXTRACTING MACHINE OPERATOR CPT-44775 Venipuncture Draw Fee 13:17:16 EXTRACTING MACHINE OPERATOR CPT-02737 Venipuncture Draw Fee 12:05:39 CDT CPT-59709 Venipuncture Draw Fee 12:49:12 CDT CPT-39225 Venipuncture Draw Fee 12:37:18 CDT CPT-72274 Venipuncture Draw Fee 10:57:11 CDT CPT-16621 Venipuncture Draw Fee 13:47:40 CDT CPT-17063 Venipuncture Draw Fee 10:02:17 CDT CPT-63491 TB Tubersol 17:32:32 CDT CPT-OV Office Visit 16:21:53 CDT CPT-OV Office Visit 15:49:22 CDT CPT-OV Office Visit 17:16:31 CDT CPT-OV Office Visit 10:43:31 CDT
--- OUTSIDE RECORDS SUMMARY | 2019-02-09 13:18 | XMS REPORT | Clinical Summary ---
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 Dick Yates MD ABDOMINAL PAIN, GENERALIZED ICD-789.07 Inactive Hope Benavidez MD PhD FEVER UNSPECIFIED ICD-780.60 Inactive Hope cohn MD PhD UNSPECIFIED VENOUS INSUFFICIENCY ICD-459.81 [facility] ctive Adam Yates MD ADENOCARCINOMA, ASCENDING COLON [...] shot every 6 months for osteoprosis DENOSUMAB 73692859187 Active Hope Benavidez MD PhD Active CALCIUM + D + K 750-500-40 MG-UNT-MCG TABS 1 tab by mouth tw ice daily CALCIUM-VITAMIN D-VITAMIN K 75167762867 Active Hope landers MD PhD Active DAILY VALUE MULTIVITAMIN TABS 1 tab by mouth twice daily MULTIPLE VITAMIN 47067482040 Active Hope Benavidez MD PhD Active FISH OIL 306 MG CAPS 1 tab by mouth three times daily OMEGA-3 FATTY ACIDS 83895387871 Active Hope Benavidez MD PhD Active LUTEIN 10 MG TABS 1 tab daily LUTEIN 82255231281 Act cash Hope Benavidez MD PhD Active FLORANEX PACK 1 pack three times daily, for bowel health LACTOBACILLUS 22314833429 Active Hope Benavidez MD PhD Active LOMOTIL 2.5-0.025 MG TABS 1 tab by mouth prn DIPHENOXYLATE-ATROPINE 12536816602 Active Hope Benavidez MD PhD Active TRIAMTERENE-HCTZ 37.5-25 MG TABS 1 tab by mouth daily TRIAMTERENE-HCTZ 95997230555 Active Hope Benavidez MD PhD Acti ve IRON 325 (65 FE) MG TABS 1 tab daily FERROUS SULF ATE 76005396657 Active Hope Benavidez MD PhD Active MAGNESIUM GLUCONATE 250 MG TABS 1 tab tid MAGN ESIUM GLUCONATE 79605695077 Active Adam Yates MD Active ATENOLOL 50 MG TABS 1/2 tab q other day m-w-f ATE NOLOL 32497351184 Active Adam Yates MD Active PROPRANOLOL HCL 80 MG TABS 1 tab tue. and thur. PROPRANOLOL HCL 70807984471 Active Adam Yates MD Active CYCLOBENZAPRINE HCL 10 MG TABS 1 tablet by mouth three times daily as needed for headaches CYCLOBENZAPRINE HCL 34642737799 No Longe r Active Adam Yates MD Active OMEPRAZOLE 20 MG CPDR 1 tablet by mouth daily for GERD OMEPRAZOLE 38577188934 No Longer Active Adam Yates MD A ctive ZOFRAN 8 MG TABS 1 tab by mouth every 12 hours prn 201 05/16/09 ONDANSETRON HCL 27648929113 No Longer Active Adam Yates MD Active PHENADOZ 25 MG SUPP 1 every 4 hrs. PRN PROMETHA ZINE HCL 04196720965 No Longer Active Adam Yates MD Active POTASSIUM CHLORIDE 20 MEQ PACK by mouth twice a day prn POTASSIUM CHLORIDE 50879442442 No Longer Active Adam Yates MD Active PROMETHAZINE HCL 25 MG TABS 1 Q. 4 hr. PRN PROM ETHAZINE HCL 05090451724 No Longer Active Adam Yates MD Active INNOPRAN XL 120 MG [id number] Take one by mouth daily 2 PROPRANOLOL HCL SR BEADS 01333493256 No Longer Active Adam Yates MD A ctive FLAGYL 500 MG TABS 1 pill by mouth three times daily, for diarrh ea METRONIDAZOLE 73917353353 No Longer Active Hope Benavidez MD PhD Active DYAZIDE 37.5-25 MG CAPS 1 qd TRIAMTERENE-HC TZ 95160770888 No Longer Active Hope Benavidez MD PhD Active PROZAC 20 MG CAPS 1 q d FLUOXETINE HCL 54605 971520 No Longer Active Hope Benavidez MD PhD Active SIMVASTATIN 40 MG TABS 1 qd SIMVASTATIN 004 06442276 No Longer Active Adam Yates MD Active MELOXICAM 15 MG TABS 1 qd MELOXICAM 2434940 6859 No Longer Active Adam Yates MD Active IMODIUM A-D 2 MG TABS 2 onset at diarrhea and prn. LOPERAMIDE HCL 34992560684 Active Hope Benavidez MD PhD Active EXCEDRIN EXTRA STRENGTH 250-250-65 MG TABS 1-2 q6h PRN headache 201 04/16/21 [id number] 88577103404 Active Hope Benavidez MD PhD Active FLAGYL 500 MG TABS 1 qid METRONIDAZOLE 37160 950506 No Longer Active Adam Yates MD Active LEVAQUIN 750 MG TABS 1 qd LEVOFLOXACIN 5486 6137186 No Longer Active Adam Yates MD Active ADULT ASPIRIN LOW STRENGTH 81 MG TBDP 1 qd A SPIRIN 94718132175 Active Hope Benavidez MD PhD Active LEVAQUIN 750 MG TABS 1 qd LEVAQUIN 750 MG T ABS 581060 LEVOFLOXACIN Inactive FLAGYL 500 MG TABS 1 qid FLAGYL 500 MG TABS 248721 METRONIDAZOLE Inactive MELOXICAM 15 MG TABS 1 qd MELOXICAM 15 MG T ABS 159478 MELOXICAM Inactive SIMVASTATIN 40 MG TABS 1 qd SIMVASTATIN 40 MG TABS 496957 SIMVASTATIN Inactive PROZAC 20 MG CAPS 1 q d PROZAC 20 MG CAPS 31 0385 FLUOXETINE HCL Inactive DYAZIDE 37.5-25 MG CAPS 1 qd DYAZIDE 37.5 -25 MG CAPS 19820212 TRIAMTERENE-HCTZ Inactive INNOPRAN XL 120 MG [id number] Take one by mouth daily 2 INNOPRAN XL 120 MG [id number] PROPRANOLOL HCL SR BEADS Inactive PROMETHAZINE HCL 25 MG TABS 1 Q. 4 hr. PRN PROMETHAZINE HCL 25 MG TABS 237865 PROMETHAZINE HCL Inactive POTASSIUM CHLORIDE 20 MEQ PACK by mouth twice a day prn POTASSIUM CHLORIDE 20 MEQ PACK 666708 POTASSIUM CHLORIDE Inactive PHENADOZ 25 MG SUPP 1 every 4 hrs. PRN PHENADOZ 2 5 MG SUPP 960329 PROMETHAZINE HCL Inactive ZOFRAN 8 MG TABS 1 tab by mouth every 12 hours prn 201 05/16/09 ZOFRAN 8 MG TABS 407965 ONDANSETRON HCL Inactive OMEPRAZOLE 20 MG CPDR 1 tablet by mouth daily for GERD OMEPRAZOLE 20 MG CPDR 289635 OMEPRAZOLE Inactive CYCLOBENZAPRINE HCL 10 MG TABS 1 tablet by mouth three times daily as needed for headaches CYCLOBENZAPRINE HCL 10 MG TABS 833916 CYCLOBENZAPRINE HCL Inactive FLAGYL 500 MG TABS 1 pill by mouth three times daily, for diarrh ea FLAGYL 500 MG TABS 782895 METRONIDAZOLE Inactive Advance Directives Directive Description Start [...] - Chem istry sodium, serum 137 mmol/L 351-632 0239/11/01 potassium, serum 3.7 mmol/L 3.5-5.2 chloride, serum 100 mmol/L 98-107 carbon dioxide, venous blood 31.8 mmol/L 21.0-32 .0 blood glucose 98 mg/dL 65-110 calcium, serum 8.6 mg/dL 8.5-10.1 urea nitrogen, blood 23 mg/dL 7-18 creatinine, serum 1.50 mg/dL 0.60-1.30 sodium, serum 136 mmol/L 444-927 2727/05/02 potassium, serum 4.1 mmol/L 3.5-5.2 chloride, serum 99 mmol/L 98-107 carbon dioxide, venous blood 30.7 mmol/L 21.0-32 .0 blood glucose 79 mg/dL 65-110 calcium, serum 8.7 mg/dL 8.5-10.1 urea nitrogen, blood 11 mg/dL 7-18 creatinine, serum 1.10 mg/dL 0.60-1.30 Lab Report: [facility] - Chemistry sodium, serum 141 mmol/L potassium, serum 4.2 mmol/L blood glucose 66 mg/dL creatinine, serum 1.16 mg/dL Lab Report: CBC W/ DIFF, YANCI ESCOTO AN AEROBIC CX - Chemistry sodium, serum 137 mmol/L potassium, serum 3.8 mmol/L blood glucose 79 mg/dL creatinine, serum 1.02 mg/dL magnesium, serum 1.2 mg/dL Lab Report: CBC W/ DIFF, YANCI ESCOTO, AN AEROBIC CX - Hematology leukocyte count, [...] 11 .6-14.8 platelet count 133 10^3/MM^3 10*3/mm3 587-998 0351/01/17 leukocyte count, blood 3.1 10^3/MM^3 10*3/mm3 4.6-10.2 [...] 11 .6-14.8 platelet count 22 10^3/MM^3 10*3/mm3 280-646 1293/11/19 leukocyte count, blood 10.4 10^3/MM^3 10*3/mm3 4.6-10.2 [...] Verified By Repeat Analysis 10^3/mm ^3 10*3/mm3 007-935 7748/12/10 leukocyte count, blood 7.8 10^3/MM^3 10*3/mm3 4.6-10.2 [...] Panel - Chemistry sodium, serum 139 mmol/L 274-180 4813/12/03 potassium, serum 3.7 mmol/L 3.5-5.2 chloride, serum [...] 0.40 mg/dL 0.00-1.00 sodium, serum 142 mmol/L 371-557 5983/01/03 potassium, serum 3.4 mmol/L 3.5-5.2 chloride, serum [...] 0.50 mg/dL 0.00-1.00 sodium, serum 137 mmol/L 678-400 3386/10/01 potassium, serum 3.5 mmol/L 3.5-5.2 chloride, serum [...] 0.60 mg/dL 0.00-1.00 sodium, serum 136 mmol/L 166-743 3877/10/08 potassium, serum 3.1 mmol/L 3.5-5.2 chloride, serum [...] 0.60 mg/dL 0.00-1.00 sodium, serum 139 mmol/L 598-583 6003/10/17 potassium, serum 3.1 mmol/L 3.5-5.2 chloride, serum [...] 0.30 mg/dL 0.00-1.00 sodium, serum 140 mmol/L 854-143 2659/01/06 potassium, serum 3.4 mmol/L 3.5-5.2 chloride, serum [...] 0.40 mg/dL 0.00-1.00 sodium, serum 139 mmol/L 574-066 5779/01/21 potassium, serum 3.4 mmol/L 3.5-5.2 chloride, serum [...] 0.40 mg/dL 0.00-1.00 sodium, serum 138 mmol/L 547-261 8340/01/28 potassium, serum 3.2 mmol/L 3.5-5.2 chloride, serum [...] 0.40 mg/dL 0.00-1.00 sodium, serum 140 mmol/L 686-782 9963/02/04 potassium, serum 3.6 mmol/L 3.5-5.2 chloride, serum [...] 0.70 mg/dL 0.00-1.00 sodium, serum 136 mmol/L 038-486 7890/02/11 potassium, serum 3.1 mmol/L 3.5-5.2 chloride, serum [...] 0.50 mg/dL 0.00-1.00 sodium, serum 138 mmol/L 147-078 0336/08/14 potassium, serum 4.0 mmol/L 3.5-5.2 chloride, serum [...] 0.40 mg/dL 0.00-1.00 sodium, serum 136 mmol/L 544-019 7332/04/03 potassium, serum 3.7 mmol/L 3.5-5.2 chloride, serum [...] 0.40 mg/dL 0.00-1.00 sodium, serum 139 mmol/L 923-428 4540/02/18 potassium, serum 3.6 mmol/L 3.5-5.2 chloride, serum [...] 11 .6-14.8 platelet count 246 10^3/MM^3 10*3/mm3 062-700 9540/08/14 leukocyte count, blood 5.8 10^3/MM^3 10*3/mm3 4.6-10.2 [...] 11 .6-14.8 platelet count 193 10^3/MM^3 10*3/mm3 053-764 5854/02/18 leukocyte count, blood 4.0 10^3/MM^3 10*3/mm3 4.6-10.2 [...] 11 .6-14.8 platelet count 134 10^3/MM^3 10*3/mm3 006-036 4674/02/11 leukocyte count, blood 4.8 10^3/MM^3 10*3/mm3 4.6-10.2 [...] 11 .6-14.8 platelet count 102 10^3/MM^3 10*3/mm3 600-092 2004/02/04 leukocyte count, blood 3.6 10^3/MM^3 10*3/mm3 4.6-10.2 [...] 11 .6-14.8 platelet count 70 10^3/MM^3 10*3/mm3 996-375 4358/01/28 leukocyte count, blood 4.2 10^3/MM^3 10*3/mm3 4.6-10.2 [...] 11 .6-14.8 platelet count 73 10^3/MM^3 10*3/mm3 438-064 0620/01/03 leukocyte count, blood 8.1 10^3/MM^3 10*3/mm3 4.6-10.2 [...] 11 .6-14.8 platelet count 96 10^3/MM^3 10*3/mm3 244-972 3404/01/21 leukocyte count, blood 4.9 10^3/MM^3 10*3/mm3 4.6-10.2 [...] .6-14.8 platelet count 38 recounted 10^3/mm^3 10*3/mm3 976-934 6496/10/08 leukocyte count, blood 2.9 10^3/MM^3 10*3/mm3 4.6-10.2 [...] 11 .6-14.8 platelet count 229 10^3/MM^3 10*3/mm3 775-676 2794/10/17 leukocyte count, blood 12.0 10^3/MM^3 10*3/mm3 4.6-10.2 [...] 11 .6-14.8 platelet count 232 10^3/MM^3 10*3/mm3 936-782 3224/10/01 leukocyte count, blood 8.3 10^3/MM^3 10*3/mm3 4.6-10.2 [...] 11 .6-14.8 platelet count 378 10^3/MM^3 10*3/mm3 500-065 8460/01/06 leukocyte count, blood 7.6 10^3/MM^3 10*3/mm3 4.6-10.2 [...] 11 .6-14.8 platelet count 132 10^3/MM^3 10*3/mm3 602-636 1135/12/03 leukocyte count, blood 8.2 10^3/MM^3 10*3/mm3 4.6-10.2 [...] Diff/Morphology - Chemistry sodium, serum 141 mmol/L 840-976 9035/11/25 potassium, serum 3.9 mmol/L 3.5-5.2 chloride, serum [...] 0.50 mg/dL 0.00-1.00 sodium, serum 137 mmol/L 559-956 4060/11/12 potassium, serum 3.2 mmol/L 3.5-5.2 chloride, serum [...] 0.40 mg/dL 0.00-1.00 sodium, serum 140 mmol/L 441-402 3924/12/17 potassium, serum 3.3 mmol/L 3.5-5.2 chloride, serum [...] 0.40 mg/dL 0.00-1.00 sodium, serum 138 mmol/L 490-931 4046/12/24 potassium, serum 3.7 mmol/L 3.5-5.2 chloride, serum [...] 0.50 mg/dL 0.00-1.00 sodium, serum 135 mmol/L 911-097 3005/10/22 potassium, serum 3.0 mmol/L 3.5-5.2 chloride, serum [...] 0.50 mg/dL 0.00-1.00 sodium, serum 138 mmol/L 529-582 7496/11/05 potassium, serum 3.9 mmol/L 3.5-5.2 chloride, serum [...] 0.40 mg/dL 0.00-1.00 sodium, serum 128 mmol/L 165-983 1940/10/29 potassium, serum 2.6 mmol/L 3.5-5.2 chloride, serum [...] 0.50 mg/dL 0.00-1.00 sodium, serum 141 mmol/L 773-973 2874/01/14 potassium, serum 3.9 mmol/L 3.5-5.2 chloride, serum [...] 11 .6-14.8 platelet count 22 10^3/MM^3 10*3/mm3 482-566 4393/10/22 leukocyte count, blood 14.7 10^3/MM^3 10*3/mm3 4.6-10.2 [...] 11 .6-14.8 platelet count 428 10^3/MM^3 10*3/mm3 745-150 7155/11/05 leukocyte count, blood 16.4 10^3/MM^3 10*3/mm3 4.6-10.2 [...] 11 .6-14.8 platelet count 215 10^3/MM^3 10*3/mm3 922-502 1224/11/12 leukocyte count, blood 12.1 10^3/MM^3 10*3/mm3 4.6-10.2 [...] 11 .6-14.8 platelet count 157 10^3/MM^3 10*3/mm3 732-866 0318/10/29 leukocyte count, blood 26.3 10^3/MM^3 10*3/mm3 4.6-10.2 [...] 11 .6-14.8 platelet count 268 10^3/MM^3 10*3/mm3 871-256 5191/12/24 leukocyte count, blood 14.0 10^3/MM^3 10*3/mm3 4.6-10.2 [...] 11 .6-14.8 platelet count 66 10^3/MM^3 10*3/mm3 753-703 9282/11/25 leukocyte count, blood 21.1 10^3/MM^3 10*3/mm3 4.6-10.2 [...] 11 .6-14.8 platelet count 46 10^3/MM^3 10*3/mm3 489-304 8295/12/17 leukocyte count, blood 18.6 10^3/MM^3 10*3/mm3 4.6-10.2 [...] ng/mL ng/mL Lab Report: cmp - Chemistry creatinine, serum 1.24 mg/dL blood glucose 115 mg/dL potassium, serum 4.0 mmol/L sodium, serum 142 mmol/L Lab Report: Comp. Metabolic Panel - Chem istry sodium, serum 141 mmol/L 610-285 7952/11/19 potassium, serum 3.9 mmol/L 3.5-5.2 chloride, serum [...] 0.50 mg/dL 0.00-1.00 sodium, serum 142 mmol/L 497-549 0911/12/10 potassium, serum 3.9 mmol/L 3.5-5.2 chloride, serum [...] Diff/Morphology - Chemistry sodium, serum 142 mmol/L 244-118 9206/12/31 potassium, serum 3.6 mmol/L 3.5-5.2 chloride, serum [...] Panel - Chemistry cholesterol, serum 209 mg/dL 856-154 2708/09/11 triglyceride, serum, fasting 113 mg/dL 30-200 HDL cholesterol, serum 50 mg/dL 32-96 LDL cholesterol, serum 136 mg/dL 0-130 Encounters Code Encounter Date Provider Facility CPT-72450 Level 4 Est. Patient 20:04:51 CDT Hope cohn MD PhD [facility] CPT-04071 Level 3 New Patient 01:46:11 [facility] Hope landers MD PhD [facility] Procedures Code Procedure Name Date Entry Date Standard Desc ription CPT-10055 Bone Density 12:06:12 CDT CPT-43520 Bone Density 08:54:40 CDT CPT-OV Office Visit 15:37:02 CDT CPT-57655 Postop F/U Visit 15:47:49 CDT CPT-04036 Postop F/U Visit 15:21:02 CDT CPT-TCM Transitional Care Mgmt-High 07:52:27 CDT 20 20/06/01 CPT-12547 Venipuncture Draw Fee 13:51:18 CDT CPT-77197 Venipuncture Draw Fee 10:14:55 [facility] CPT-99080 Venipuncture Draw Fee 13:39:45 [facility] CPT-OV Office Visit 15:11:22 [facility] CPT-64892 Venipuncture Draw Fee 09:20:49 [facility] CPT-56104 Venipuncture Draw Fee 16:52:15 [facility] CPT-36960 Venipuncture Draw Fee 10:37:24 [facility] CPT-23036 Venipuncture Draw Fee 08:21:21 [facility] CPT-84909 Venipuncture Draw Fee 08:30:20 [facility] CPT-27604 Venipuncture Draw Fee 14:53:21 [facility] CPT-93016 Venipuncture Draw Fee 09:40:56 [facility] CPT-28266 Venipuncture Draw Fee 10:30:47 [facility] CPT-70939 Venipuncture Draw Fee 10:46:17 [facility] CPT-32608 Venipuncture Draw Fee 11:12:45 [facility] CPT-37323 Venipuncture Draw Fee 09:53:33 [facility] CPT-66278 Venipuncture Draw Fee 11:53:51 [facility] CPT-84014 Venipuncture Draw Fee 10:33:50 [facility] CPT-71104 Venipuncture Draw Fee 10:05:01 [facility] 2013/12/ 03 CPT-11692 Venipuncture Draw Fee 14:32:52 [facility] CPT-91975 Venipuncture Draw Fee 09:46:13 [facility] CPT-62769 Venipuncture Draw Fee 11:34:27 [facility] CPT-58289 Venipuncture Draw Fee 13:17:16 [facility] CPT-65817 Venipuncture Draw Fee 12:05:39 CDT CPT-74237 Venipuncture Draw Fee 12:49:12 CDT CPT-16172 Venipuncture Draw Fee 12:37:18 CDT CPT-29744 Venipuncture Draw Fee 10:57:11 CDT CPT-80097 Venipuncture Draw Fee 13:47:40 CDT CPT-15418 Venipuncture Draw Fee 10:02:17 CDT CPT-91427 TB Tubersol 17:32:32 CDT CPT-OV Office Visit 16:21:53 CDT CPT-OV Office Visit 15:49:22 CDT CPT-OV Office Visit 17:16:31 CDT CPT-OV Office Visit 10:43:31 CDT
--- OUTSIDE RECORDS SUMMARY | 2019-02-09 13:18 | XMS REPORT | Clinical Summary ---
Author Author Renaldo, Florecita Munoz Organization [facility] Address Unknown Phone Unavailable Allergies, Adverse [...] V49.8 1 Active Citlaly Roland [facility] Asymptomatic postmenopausal status (age- related) (natural) Diarrhea 787.91 Active Hope Benavidez MD PhD Diarrhea Osteoporosis 733.00 Active Hope Benavidez MD PhD Osteoporosis, unspecified ABDOMINAL PAIN, RIGHT LOWER QUADRANT ICD-789.03 Inactive Kina Joshua APRN ADENOCARCINOMA, COLON, CECUM ICD-153.4 Dick Yates MD ABDOMINAL PAIN, GENERALIZED ICD-789.07 Inactive Hope Benavidez MD PhD FEVER UNSPECIFIED ICD-780.60 Inactive Hope cohn MD PhD UNSPECIFIED VENOUS INSUFFICIENCY ICD-459.81 Shock ctive Adam Yates MD ADENOCARCINOMA, ASCENDING COLON ICD-153.6 Inac tive Hope Benavidez MD PhD Hyperkalemia ICD-276.7 Inactive Hope Benavidez MD PhD Health maintenance exam ICD-V70.0 Bam Yates MD Aftercare following surgery of the teeth,oral cavity a nd digestive system, NEC ICD-V58.75 Inactive Adam Yates MD Colon cancer ICD-153.9 Inactive Adam luna MD Medication List Medication Instructions Start Date Stop Date Generic Name [facility] Status Provider Patient Instruction PROLIA 60 MG/ML SOLN 1 shot every 6 months for osteoprosis DENOSUMAB [id number] Active Hope Benavidez MD PhD Active CALCIUM + D + K 750-500-40 MG-UNT-MCG TABS 1 tab by mouth tw ice daily CALCIUM-VITAMIN D-VITAMIN K 55516279240 Active Hope landers MD PhD Active DAILY VALUE MULTIVITAMIN TABS 1 tab by mouth twice daily MULTIPLE VITAMIN 01801838680 Active Hope Benavidez MD PhD Active FISH OIL 306 MG CAPS 1 tab by mouth three times daily OMEGA-3 FATTY ACIDS 85083324770 Active Hope Benavidez MD PhD Active LUTEIN 10 MG TABS 1 tab daily LUTEIN 41969136533 Act cash Hope Benavidez MD PhD Active FLORANEX PACK 1 pack three times daily, for bowel health LACTOBACILLUS 85234675529 Active Hope Benavidez MD PhD Active LOMOTIL 2.5-0.025 MG TABS 1 tab by mouth prn DIPHENOXYLATE-ATROPINE 44168710541 Active Hope Benavidez MD PhD Active TRIAMTERENE-HCTZ 37.5-25 MG TABS 1 tab by mouth daily TRIAMTERENE-HCTZ 55536762285 Active Hope Benavidez MD PhD Acti ve IRON 325 (65 FE) MG TABS 1 tab daily FERROUS SULF ATE 35016243467 Active Hope Benavidez MD PhD Active MAGNESIUM GLUCONATE 250 MG TABS 1 tab tid MAGN ESIUM GLUCONATE 39385644792 Active Adam Yates MD Active ATENOLOL 50 MG TABS 1/2 tab q other day m-w-f ATE NOLOL 12598846825 Active Adam Yates MD Active PROPRANOLOL HCL 80 MG TABS 1 tab tue. and thur. PROPRANOLOL HCL 43845497178 Active Adam Yates MD Active CYCLOBENZAPRINE HCL 10 MG TABS 1 tablet by mouth three times daily as needed for headaches CYCLOBENZAPRINE HCL 58426217615 No Longe r Active Adam Yates MD Active OMEPRAZOLE 20 MG CPDR 1 tablet by mouth daily for GERD OMEPRAZOLE 55365024924 No Longer Active Adam Yates MD A ctive ZOFRAN 8 MG TABS 1 tab by mouth every 12 hours prn 201 05/16/09 ONDANSETRON HCL 51328118943 No Longer Active Adam Yates MD Active PHENADOZ 25 MG SUPP 1 every 4 hrs. PRN PROMETHA ZINE HCL 61466469748 No Longer Active Adam Yates MD Active POTASSIUM CHLORIDE 20 MEQ PACK by mouth twice a day prn POTASSIUM CHLORIDE 30068814431 No Longer Active Adam Yates MD Active PROMETHAZINE HCL 25 MG TABS 1 Q. 4 hr. PRN PROM ETHAZINE HCL 14032540318 No Longer Active Adam Yates MD Active INNOPRAN XL 120 MG [id number] Take one by mouth daily 2 PROPRANOLOL HCL SR BEADS 48940380410 No Longer Active Adam Yates MD A ctive FLAGYL 500 MG TABS 1 pill by mouth three times daily, for diarrh ea METRONIDAZOLE 31807319020 No Longer Active Hope Benavidez MD PhD Active DYAZIDE 37.5-25 MG CAPS 1 qd TRIAMTERENE-HC TZ 25933525474 No Longer Active Hope Benavidez MD PhD Active PROZAC 20 MG CAPS 1 q d FLUOXETINE HCL 88595 198564 No Longer Active Hope Benavidez MD PhD Active SIMVASTATIN 40 MG TABS 1 qd SIMVASTATIN 004 34762148 No Longer Active Adam Yates MD Active MELOXICAM 15 MG TABS 1 qd MELOXICAM 5566660 5335 No Longer Active Adam Yates MD Active IMODIUM A-D 2 MG TABS 2 onset at diarrhea and prn. LOPERAMIDE HCL 56738550993 Active Hope Benavidez MD PhD Active EXCEDRIN EXTRA STRENGTH 250-250-65 MG TABS 1-2 q6h PRN headache 201 04/16/21 [id number] 81074483784 Active Hope Benavidez MD PhD Active FLAGYL 500 MG TABS 1 qid METRONIDAZOLE 63887 773705 No Longer Active Adam Yates MD Active LEVAQUIN 750 MG TABS 1 qd LEVOFLOXACIN 5486 1074425 No Longer Active Adam Yates MD Active ADULT ASPIRIN LOW STRENGTH 81 MG TBDP 1 qd A SPIRIN 10834494200 Active Hope Benavidez MD PhD Active LEVAQUIN 750 MG TABS 1 qd LEVAQUIN 750 MG T ABS 302305 LEVOFLOXACIN Inactive FLAGYL 500 MG TABS 1 qid FLAGYL 500 MG TABS 197664 METRONIDAZOLE Inactive MELOXICAM 15 MG TABS 1 qd MELOXICAM 15 MG T ABS 017753 MELOXICAM Inactive SIMVASTATIN 40 MG TABS 1 qd SIMVASTATIN 40 MG TABS 047189 SIMVASTATIN Inactive PROZAC 20 MG CAPS 1 q d PROZAC 20 MG CAPS 31 0385 FLUOXETINE HCL Inactive DYAZIDE 37.5-25 MG CAPS 1 qd DYAZIDE 37.5 -25 MG CAPS 860277 TRIAMTERENE-HCTZ Inactive INNOPRAN XL 120 MG [id number] Take one by mouth daily 2 INNOPRAN XL 120 MG [id number] PROPRANOLOL HCL SR BEADS Inactive PROMETHAZINE HCL 25 MG TABS 1 Q. 4 hr. PRN PROMETHAZINE HCL 25 MG TABS 774023 PROMETHAZINE HCL Inactive POTASSIUM CHLORIDE 20 MEQ PACK by mouth twice a day prn POTASSIUM CHLORIDE 20 MEQ PACK 285416 POTASSIUM CHLORIDE Inactive PHENADOZ 25 MG SUPP 1 every 4 hrs. PRN PHENADOZ 2 5 MG SUPP 185798 PROMETHAZINE HCL Inactive ZOFRAN 8 MG TABS 1 tab by mouth every 12 hours prn 201 05/16/09 ZOFRAN 8 MG TABS 715353 ONDANSETRON HCL Inactive OMEPRAZOLE 20 MG CPDR 1 tablet by mouth daily for GERD OMEPRAZOLE 20 MG CPDR 192585 OMEPRAZOLE Inactive CYCLOBENZAPRINE HCL 10 MG TABS 1 tablet by mouth three times daily as needed for headaches CYCLOBENZAPRINE HCL 10 MG TABS 427248 CYCLOBENZAPRINE HCL Inactive FLAGYL 500 MG TABS 1 pill by mouth three times daily, for diarrh ea FLAGYL 500 MG TABS 639268 METRONIDAZOLE Inactive Advance Directives Directive Description Start [...] - Chem istry sodium, serum 137 mmol/L 260-577 0923/11/01 potassium, serum 3.7 mmol/L 3.5-5.2 chloride, serum 100 mmol/L 98-107 carbon dioxide, venous blood 31.8 mmol/L 21.0-32 .0 blood glucose 98 mg/dL 65-110 calcium, serum 8.6 mg/dL 8.5-10.1 urea nitrogen, blood 23 mg/dL 7-18 creatinine, serum 1.50 mg/dL 0.60-1.30 sodium, serum 136 mmol/L 958-022 4450/05/02 potassium, serum 4.1 mmol/L 3.5-5.2 chloride, serum [...] 11 .6-14.8 platelet count 22 10^3/MM^3 10*3/mm3 763-698 0241/11/19 leukocyte count, blood 10.4 10^3/MM^3 10*3/mm3 4.6-10.2 [...] Verified By Repeat Analysis 10^3/mm ^3 10*3/mm3 302-634 1542/12/10 leukocyte count, blood 7.8 10^3/MM^3 10*3/mm3 4.6-10.2 [...] 11 .6-14.8 platelet count 102 10^3/MM^3 10*3/mm3 618-678 0395/01/08 leukocyte count, blood 9.0 10^3/MM^3 10*3/mm3 4.6-10.2 [...] Panel - Chemistry sodium, serum 140 mmol/L 060-884 4586/01/06 potassium, serum 3.4 mmol/L 3.5-5.2 chloride, serum [...] 0.40 mg/dL 0.00-1.00 sodium, serum 142 mmol/L 234-811 1888/01/03 potassium, serum 3.4 mmol/L 3.5-5.2 chloride, serum [...] 0.50 mg/dL 0.00-1.00 sodium, serum 139 mmol/L 922-524 5648/12/03 potassium, serum 3.7 mmol/L 3.5-5.2 chloride, serum [...] 0.40 mg/dL 0.00-1.00 sodium, serum 139 mmol/L 411-502 8546/10/17 potassium, serum 3.1 mmol/L 3.5-5.2 chloride, serum [...] 0.30 mg/dL 0.00-1.00 sodium, serum 139 mmol/L 684-655 1824/01/21 potassium, serum 3.4 mmol/L 3.5-5.2 chloride, serum [...] 0.40 mg/dL 0.00-1.00 sodium, serum 138 mmol/L 461-376 3664/01/28 potassium, serum 3.2 mmol/L 3.5-5.2 chloride, serum [...] 0.40 mg/dL 0.00-1.00 sodium, serum 136 mmol/L 457-389 3934/04/03 potassium, serum 3.7 mmol/L 3.5-5.2 chloride, serum [...] 0.40 mg/dL 0.00-1.00 sodium, serum 139 mmol/L 737-898 8185/02/18 potassium, serum 3.6 mmol/L 3.5-5.2 chloride, serum [...] 0.50 mg/dL 0.00-1.00 sodium, serum 140 mmol/L 877-706 9136/02/04 potassium, serum 3.6 mmol/L 3.5-5.2 chloride, serum [...] 0.70 mg/dL 0.00-1.00 sodium, serum 136 mmol/L 238-919 8854/02/11 potassium, serum 3.1 mmol/L 3.5-5.2 chloride, serum [...] 0.50 mg/dL 0.00-1.00 sodium, serum 138 mmol/L 549-707 0046/08/14 potassium, serum 4.0 mmol/L 3.5-5.2 chloride, serum [...] 11 .6-14.8 platelet count 193 10^3/MM^3 10*3/mm3 241-622 6231/02/18 leukocyte count, blood 4.0 10^3/MM^3 10*3/mm3 4.6-10.2 [...] 11 .6-14.8 platelet count 134 10^3/MM^3 10*3/mm3 711-994 8693/02/11 leukocyte count, blood 4.8 10^3/MM^3 10*3/mm3 4.6-10.2 [...] 11 .6-14.8 platelet count 102 10^3/MM^3 10*3/mm3 083-616 2082/04/03 leukocyte count, blood 5.6 10^3/MM^3 10*3/mm3 4.6-10.2 [...] 11 .6-14.8 platelet count 246 10^3/MM^3 10*3/mm3 554-964 9079/02/04 leukocyte count, blood 3.6 10^3/MM^3 10*3/mm3 4.6-10.2 [...] 11 .6-14.8 platelet count 70 10^3/MM^3 10*3/mm3 003-815 2170/01/28 leukocyte count, blood 4.2 10^3/MM^3 10*3/mm3 4.6-10.2 [...] 11 .6-14.8 platelet count 73 10^3/MM^3 10*3/mm3 124-238 3563/01/21 leukocyte count, blood 4.9 10^3/MM^3 10*3/mm3 4.6-10.2 [...] .6-14.8 platelet count 38 recounted 10^3/mm^3 10*3/mm3 406-343 6931/10/17 leukocyte count, blood 12.0 10^3/MM^3 10*3/mm3 4.6-10.2 [...] 11 .6-14.8 platelet count 232 10^3/MM^3 10*3/mm3 857-402 3569/12/03 leukocyte count, blood 8.2 10^3/MM^3 10*3/mm3 4.6-10.2 [...] 11 .6-14.8 platelet count 98 10^3/MM^3 10*3/mm3 706-271 3901/01/06 leukocyte count, blood 7.6 10^3/MM^3 10*3/mm3 4.6-10.2 [...] 11 .6-14.8 platelet count 132 10^3/MM^3 10*3/mm3 677-408 6371/01/03 leukocyte count, blood 8.1 10^3/MM^3 10*3/mm3 4.6-10.2 [...] Diff/Morphology - Chemistry sodium, serum 140 mmol/L 151-265 1275/12/17 potassium, serum 3.3 mmol/L 3.5-5.2 chloride, serum [...] 0.40 mg/dL 0.00-1.00 sodium, serum 138 mmol/L 873-875 2841/12/24 potassium, serum 3.7 mmol/L 3.5-5.2 chloride, serum [...] 0.50 mg/dL 0.00-1.00 sodium, serum 141 mmol/L 969-142 9511/11/25 potassium, serum 3.9 mmol/L 3.5-5.2 chloride, serum [...] 0.50 mg/dL 0.00-1.00 sodium, serum 137 mmol/L 639-332 6288/11/12 potassium, serum 3.2 mmol/L 3.5-5.2 chloride, serum [...] 0.40 mg/dL 0.00-1.00 sodium, serum 138 mmol/L 855-188 5329/11/05 potassium, serum 3.9 mmol/L 3.5-5.2 chloride, serum [...] 0.40 mg/dL 0.00-1.00 sodium, serum 135 mmol/L 186-401 7129/10/22 potassium, serum 3.0 mmol/L 3.5-5.2 chloride, serum [...] 0.50 mg/dL 0.00-1.00 sodium, serum 128 mmol/L 593-975 8954/10/29 potassium, serum 2.6 mmol/L 3.5-5.2 chloride, serum [...] 0.50 mg/dL 0.00-1.00 sodium, serum 141 mmol/L 179-690 2445/01/14 potassium, serum 3.9 mmol/L 3.5-5.2 chloride, serum [...] 11 .6-14.8 platelet count 428 10^3/MM^3 10*3/mm3 407-280 3920/11/05 leukocyte count, blood 16.4 10^3/MM^3 10*3/mm3 4.6-10.2 [...] 11 .6-14.8 platelet count 215 10^3/MM^3 10*3/mm3 909-476 5247/10/29 leukocyte count, blood 26.3 10^3/MM^3 10*3/mm3 4.6-10.2 [...] 11 .6-14.8 platelet count 268 10^3/MM^3 10*3/mm3 954-620 8593/11/12 leukocyte count, blood 12.1 10^3/MM^3 10*3/mm3 4.6-10.2 [...] 11 .6-14.8 platelet count 157 10^3/MM^3 10*3/mm3 968-556 1956/11/25 leukocyte count, blood 21.1 10^3/MM^3 10*3/mm3 4.6-10.2 [...] 11 .6-14.8 platelet count 46 10^3/MM^3 10*3/mm3 796-917 9125/12/17 leukocyte count, blood 18.6 10^3/MM^3 10*3/mm3 4.6-10.2 [...] 11 .6-14.8 platelet count 75 10^3/MM^3 10*3/mm3 618-216 8211/12/24 leukocyte count, blood 14.0 10^3/MM^3 10*3/mm3 4.6-10.2 [...] 11 .6-14.8 platelet count 66 10^3/MM^3 10*3/mm3 063-502 1010/01/14 leukocyte count, blood 6.2 10^3/MM^3 10*3/mm3 4.6-10.2 [...] - Chem istry sodium, serum 141 mmol/L 995-687 4872/11/19 potassium, serum 3.9 mmol/L 3.5-5.2 chloride, serum [...] 0.50 mg/dL 0.00-1.00 sodium, serum 142 mmol/L 673-431 9000/12/10 potassium, serum 3.9 mmol/L 3.5-5.2 chloride, serum [...] Diff/Morphology - Chemistry sodium, serum 142 mmol/L 613-233 1503/12/31 potassium, serum 3.6 mmol/L 3.5-5.2 chloride, serum [...] Panel - Chemistry cholesterol, serum 209 mg/dL 412-911 6859/09/11 triglyceride, serum, fasting 113 mg/dL 30-200 HDL cholesterol, serum 50 mg/dL 32-96 LDL cholesterol, serum 136 mg/dL 0-130 Encounters Code Encounter Date Provider Facility CPT-23181 Level 4 Est. Patient 20:04:51 CDT Hope cohn MD PhD [facility] CPT-31329 Level 3 New Patient 01:46:11 [employer] Hope landers MD PhD [facility] Procedures Code Procedure Name Date Entry Date Standard Desc ription CPT-G0008 Administration of Influenza Virus Vaccine 13:36:47 CDT CPT-05194 Fluzone High-Dose Intramuscular Suspension 11/15 13:36:47 CDT CPT-J0897 Prolia 60 mg 08:50:41 CDT CPT-69567 Abx/Therapy Injection 08:50:41 CDT CPT-79302 Bone Density 12:06:12 CDT CPT-61710 Bone Density 08:54:40 CDT CPT-OV Office Visit 15:37:02 CDT CPT-28134 Postop F/U Visit 15:47:49 CDT CPT-95711 Postop F/U Visit 15:21:02 CDT CPT-TCMH Transitional Care Mgmt-High 07:52:27 CDT 20 20/06/01 CPT-07513 Venipuncture Draw Fee 13:51:18 CDT CPT-08694 Venipuncture Draw Fee 10:14:55 [employer] CPT-23714 Venipuncture Draw Fee 13:39:45 [employer] O[employer]ATOR CPT-OV Office Visit 15:11:22 [employer] CPT-83527 Venipuncture Draw Fee 09:20:49 [employer] OPERATOR CPT-62208 Venipuncture Draw Fee 16:52:15 [employer] O[employer]ATOR CPT-55601 Venipuncture Draw Fee 10:37:24 [employer] OPERATOR CPT-72914 Venipuncture Draw Fee 08:21:21 [employer] OPERATOR CPT-85260 Venipuncture Draw Fee 08:30:20 [employer] OPERATOR CPT-82680 Venipuncture Draw Fee 14:53:21 [employer] OPERATOR CPT-60121 Venipuncture Draw Fee 09:40:56 [employer] OPERATOR CPT-31550 Venipuncture Draw Fee 10:30:47 [employer] OPERATOR CPT-01716 Venipuncture Draw Fee 10:46:17 [employer] OPERATOR CPT-02399 Venipuncture Draw Fee 11:12:45 [employer] OPERATOR CPT-94873 Venipuncture Draw Fee 09:53:33 [employer] O[employer]ATOR CPT-42302 Venipuncture Draw Fee 11:53:51 [employer] OPERATOR CPT-76390 Venipuncture Draw Fee 10:33:50 [employer] OPERATOR CPT-19524 Venipuncture Draw Fee 10:05:01 [employer] OPERATOR CPT-95061 Venipuncture Draw Fee 14:32:52 [employer] OPERATOR CPT-42224 Venipuncture Draw Fee 09:46:13 [employer] OPERATOR CPT-63674 Venipuncture Draw Fee 11:34:27 [employer] OPERATOR CPT-21347 Venipuncture Draw Fee 13:17:16 [employer] CPT-29224 Venipuncture Draw Fee 12:05:39 CDT CPT-62045 Venipuncture Draw Fee 12:49:12 CDT CPT-81340 Venipuncture Draw Fee 12:37:18 CDT CPT-68012 Venipuncture Draw Fee 10:57:11 CDT CPT-32771 Venipuncture Draw Fee 13:47:40 CDT CPT-17350 Venipuncture Draw Fee 10:02:17 CDT CPT-48833 TB Tubersol 17:32:32 CDT CPT-OV Office Visit 16:21:53 CDT CPT-OV Office Visit 15:49:22 CDT CPT-OV Office Visit 17:16:31 CDT CPT-OV Office Visit 10:43:31 CDT
--- OUTSIDE RECORDS SUMMARY | 2019-02-09 13:19 | XMS REPORT | Clinical Summary ---
Author Author Renaldo, Florecita Mnuoz Organization [facility] Address Unknown Phone Allergies, Adverse Reactions, Alerts Allergy Name Reaction Description Start Date Severity Status Pr ovider No Known Allergies Fay Velázquezeau Conditions or Problems Problem Name Problem Code [...] Generic Name NDC Status Provider Patient Instruction FLAGYL 500 MG TABS 1 pill by mouth three times daily, for diarrh ea METRONIDAZOLE 27694143251 Active Hope Benavidez MD PhD A ctive MAGNESIUM GLUCONATE 250 MG TABS 1 tab daily MAG NESIUM GLUCONATE 81663943263 Active Hope Benavidez MD PhD Active DYAZIDE 37.5-25 MG CAPS 1 qd TRIAMTERENE-HC TZ 40807607240 No Longer Active Hope Benavidez MD PhD Active PROZAC 20 MG CAPS 1 q d FLUOXETINE HCL 50812 696564 No Longer Active Hope Benavidez MD PhD Active INNOPRAN XL 120 MG [id number] Take one by mouth daily PROPRANOLOL HCL SR BEADS 04696822212 Active Hope Benavidez MD PhD Active POTASSIUM CHLORIDE 20 MEQ PACK by mouth twice a day prn POTASSIUM CHLORIDE 96749501793 Active Adam Yates MD Activ e CYCLOBENZAPRINE HCL 10 MG TABS 1 tablet by mouth three times daily as needed for headaches CYCLOBENZAPRINE HCL 13129182102 Active Selena Yates MD Active SIMVASTATIN 40 MG TABS 1 qd SIMVASTATIN 004 89866076 No Longer Active Adam Yates MD Active MELOXICAM 15 MG TABS 1 qd MELOXICAM 6932489 0924 No Longer Active Adam Yates MD Active ATENOLOL 50 MG TABS 1/2 tab q other day ATENOLOL 30416856531 Active Hope Benavidez MD PhD Active OMEPRAZOLE 20 MG CPDR 1 tablet by mouth daily for GERD OMEPRAZOLE 29954189686 Active Hope Benavidez MD PhD Active IMODIUM A-D 2 MG TABS 2 onset at diarrhea and prn. LOPERAMIDE HCL 30250596021 Active Hope Benavidez MD PhD Active PHENADOZ 25 MG SUPP 1 every 4 hrs. PRN PROMETHAZINE HCL 75178240712 Active Hope Benavidez MD PhD Active PROMETHAZINE HCL 25 MG TABS 1 Q. 4 hr. PRN PROMETH AZINE HCL 93037728244 Active Hope Benavidez MD PhD Active EXCEDRIN EXTRA STRENGTH 250-250-65 MG TABS 1-2 q6h PRN headache 201 04/16/21 [id number] 46733910220 Active Hope Benavidez MD PhD Active ZOFRAN 4 MG TABS 1 q 6 hr prn ONDANSETRON HCL 0379503 7002 Active Fay Alberts Active FLAGYL 500 MG TABS 1 qid METRONIDAZOLE 44920 415437 No Longer Active Adam Yates MD Active LEVAQUIN 750 MG TABS 1 qd LEVOFLOXACIN 5486 2714211 No Longer Active Adam Yates MD Active ADULT ASPIRIN LOW STRENGTH 81 MG TBDP 1 qd A SPIRIN 47566206720 Active Hope Benavidez MD PhD Active LEVAQUIN 750 MG TABS 1 qd LEVAQUIN 750 MG T ABS 979048 LEVOFLOXACIN Inactive FLAGYL 500 MG TABS 1 qid FLAGYL 500 MG TABS 945919 METRONIDAZOLE Inactive MELOXICAM 15 MG TABS 1 qd MELOXICAM 15 MG T ABS 051392 MELOXICAM Inactive SIMVASTATIN 40 MG TABS 1 qd SIMVASTATIN 40 MG TABS 771793 SIMVASTATIN Inactive PROZAC 20 MG CAPS 1 q d PROZAC 20 MG CAPS 31 0385 FLUOXETINE HCL Inactive DYAZIDE 37.5-25 MG CAPS 1 qd DYAZIDE 37.5 -25 MG CAPS 342361 TRIAMTERENE-HCTZ Inactive Advance Directives Directive Description Start [...] - Chem istry sodium, serum 137 mmol/L 328-526 3833/11/01 potassium, serum 3.7 mmol/L 3.5-5.2 chloride, serum 100 mmol/L 98-107 carbon dioxide, venous blood 31.8 mmol/L 21.0-32 .0 blood glucose 98 mg/dL 65-110 calcium, serum 8.6 mg/dL 8.5-10.1 urea nitrogen, blood 23 mg/dL 7-18 creatinine, serum 1.50 mg/dL 0.60-1.30 sodium, serum 136 mmol/L 648-238 7925/05/02 potassium, serum 4.1 mmol/L 3.5-5.2 chloride, serum [...] 142-424 Lab Report: CBC W/ DIFF, BMP, [facility] CX - Chemistry sodium, serum 137 mmol/L potassium, serum 3.8 mmol/L blood glucose 79 mg/dL creatinine, serum 1.02 mg/dL magnesium, serum 1.2 mg/dL Lab Report: CBC W/ DIFF, BMP, [facility] CX - Hematology leukocyte count, blood [...] 11 .6-14.8 platelet count 133 10^3/MM^3 10*3/mm3 504-359 4591/01/17 leukocyte count, blood 3.1 10^3/MM^3 10*3/mm3 4.6-10.2 [...] 11 .6-14.8 platelet count 22 10^3/MM^3 10*3/mm3 550-551 7803/11/19 leukocyte count, blood 10.4 10^3/MM^3 10*3/mm3 4.6-10.2 [...] Verified By Repeat Analysis 10^3/mm ^3 10*3/mm3 734-518 2632/12/10 leukocyte count, blood 7.8 10^3/MM^3 10*3/mm3 4.6-10.2 [...] Panel - Chemistry sodium, serum 139 mmol/L 006-276 0208/12/03 potassium, serum 3.7 mmol/L 3.5-5.2 chloride, serum [...] 0.40 mg/dL 0.00-1.00 sodium, serum 137 mmol/L 137-077 9155/10/01 potassium, serum 3.5 mmol/L 3.5-5.2 chloride, serum [...] 0.60 mg/dL 0.00-1.00 sodium, serum 136 mmol/L 240-178 6084/10/08 potassium, serum 3.1 mmol/L 3.5-5.2 chloride, serum [...] 0.60 mg/dL 0.00-1.00 sodium, serum 139 mmol/L 860-534 3580/10/17 potassium, serum 3.1 mmol/L 3.5-5.2 chloride, serum [...] 0.30 mg/dL 0.00-1.00 sodium, serum 139 mmol/L 887-420 1854/01/21 potassium, serum 3.4 mmol/L 3.5-5.2 chloride, serum [...] 0.40 mg/dL 0.00-1.00 sodium, serum 138 mmol/L 484-782 9672/01/28 potassium, serum 3.2 mmol/L 3.5-5.2 chloride, serum [...] 0.40 mg/dL 0.00-1.00 sodium, serum 140 mmol/L 259-127 9007/02/04 potassium, serum 3.6 mmol/L 3.5-5.2 chloride, serum [...] 0.70 mg/dL 0.00-1.00 sodium, serum 142 mmol/L 556-665 9215/01/03 potassium, serum 3.4 mmol/L 3.5-5.2 chloride, serum [...] 0.50 mg/dL 0.00-1.00 sodium, serum 140 mmol/L 350-432 5077/01/06 potassium, serum 3.4 mmol/L 3.5-5.2 chloride, serum [...] 0.40 mg/dL 0.00-1.00 sodium, serum 136 mmol/L 877-947 5376/04/03 potassium, serum 3.7 mmol/L 3.5-5.2 chloride, serum [...] 0.40 mg/dL 0.00-1.00 sodium, serum 136 mmol/L 585-933 3475/02/11 potassium, serum 3.1 mmol/L 3.5-5.2 chloride, serum [...] 0.50 mg/dL 0.00-1.00 sodium, serum 139 mmol/L 877-440 2705/02/18 potassium, serum 3.6 mmol/L 3.5-5.2 chloride, serum [...] 11 .6-14.8 platelet count 246 10^3/MM^3 10*3/mm3 769-586 3572/02/18 leukocyte count, blood 4.0 10^3/MM^3 10*3/mm3 4.6-10.2 [...] 11 .6-14.8 platelet count 134 10^3/MM^3 10*3/mm3 574-978 9139/01/03 leukocyte count, blood 8.1 10^3/MM^3 10*3/mm3 4.6-10.2 [...] 11 .6-14.8 platelet count 96 10^3/MM^3 10*3/mm3 974-801 9515/01/06 leukocyte count, blood 7.6 10^3/MM^3 10*3/mm3 4.6-10.2 [...] 11 .6-14.8 platelet count 132 10^3/MM^3 10*3/mm3 028-833 5604/02/11 leukocyte count, blood 4.8 10^3/MM^3 10*3/mm3 4.6-10.2 [...] 11 .6-14.8 platelet count 102 10^3/MM^3 10*3/mm3 247-232 5160/02/04 leukocyte count, blood 3.6 10^3/MM^3 10*3/mm3 4.6-10.2 [...] 11 .6-14.8 platelet count 70 10^3/MM^3 10*3/mm3 682-632 6100/01/28 leukocyte count, blood 4.2 10^3/MM^3 10*3/mm3 4.6-10.2 [...] 11 .6-14.8 platelet count 73 10^3/MM^3 10*3/mm3 693-147 4283/01/21 leukocyte count, blood 4.9 10^3/MM^3 10*3/mm3 4.6-10.2 [...] .6-14.8 platelet count 38 recounted 10^3/mm^3 10*3/mm3 230-636 2494/10/08 leukocyte count, blood 2.9 10^3/MM^3 10*3/mm3 4.6-10.2 [...] 11 .6-14.8 platelet count 229 10^3/MM^3 10*3/mm3 266-423 4003/10/17 leukocyte count, blood 12.0 10^3/MM^3 10*3/mm3 4.6-10.2 [...] 11 .6-14.8 platelet count 232 10^3/MM^3 10*3/mm3 594-274 8550/10/01 leukocyte count, blood 8.3 10^3/MM^3 10*3/mm3 4.6-10.2 [...] 11 .6-14.8 platelet count 378 10^3/MM^3 10*3/mm3 009-250 4515/12/03 leukocyte count, blood 8.2 10^3/MM^3 10*3/mm3 4.6-10.2 [...] Diff/Morphology - Chemistry sodium, serum 141 mmol/L 453-551 0403/11/25 potassium, serum 3.9 mmol/L 3.5-5.2 chloride, serum [...] 0.50 mg/dL 0.00-1.00 sodium, serum 137 mmol/L 846-111 7968/11/12 potassium, serum 3.2 mmol/L 3.5-5.2 chloride, serum [...] 0.40 mg/dL 0.00-1.00 sodium, serum 140 mmol/L 014-832 3652/12/17 potassium, serum 3.3 mmol/L 3.5-5.2 chloride, serum [...] 0.40 mg/dL 0.00-1.00 sodium, serum 138 mmol/L 127-360 2565/12/24 potassium, serum 3.7 mmol/L 3.5-5.2 chloride, serum [...] 0.50 mg/dL 0.00-1.00 sodium, serum 138 mmol/L 043-801 0487/11/05 potassium, serum 3.9 mmol/L 3.5-5.2 chloride, serum [...] 0.40 mg/dL 0.00-1.00 sodium, serum 135 mmol/L 237-664 6759/10/22 potassium, serum 3.0 mmol/L 3.5-5.2 chloride, serum [...] 0.50 mg/dL 0.00-1.00 sodium, serum 128 mmol/L 197-541 6978/10/29 potassium, serum 2.6 mmol/L 3.5-5.2 chloride, serum [...] 0.50 mg/dL 0.00-1.00 sodium, serum 141 mmol/L 478-237 1087/01/14 potassium, serum 3.9 mmol/L 3.5-5.2 chloride, serum [...] 11 .6-14.8 platelet count 22 10^3/MM^3 10*3/mm3 803-424 1376/10/22 leukocyte count, blood 14.7 10^3/MM^3 10*3/mm3 4.6-10.2 [...] 11 .6-14.8 platelet count 428 10^3/MM^3 10*3/mm3 996-333 1773/10/29 leukocyte count, blood 26.3 10^3/MM^3 10*3/mm3 4.6-10.2 [...] 11 .6-14.8 platelet count 268 10^3/MM^3 10*3/mm3 664-658 4580/11/12 leukocyte count, blood 12.1 10^3/MM^3 10*3/mm3 4.6-10.2 [...] 11 .6-14.8 platelet count 157 10^3/MM^3 10*3/mm3 170-203 3406/11/05 leukocyte count, blood 16.4 10^3/MM^3 10*3/mm3 4.6-10.2 [...] 11 .6-14.8 platelet count 215 10^3/MM^3 10*3/mm3 085-895 3150/12/24 leukocyte count, blood 14.0 10^3/MM^3 10*3/mm3 4.6-10.2 [...] 11 .6-14.8 platelet count 66 10^3/MM^3 10*3/mm3 118-217 5171/12/17 leukocyte count, blood 18.6 10^3/MM^3 10*3/mm3 4.6-10.2 [...] 11 .6-14.8 platelet count 75 10^3/MM^3 10*3/mm3 278-642 1880/11/25 leukocyte count, blood 21.1 10^3/MM^3 10*3/mm3 4.6-10.2 [...] 11 .6-14.8 platelet count 413 10^3/MM^3 10*3/mm3 153-007 4266/01/16 leukocyte count, blood 3.6 10^3/MM^3 10*3/mm3 4.6-10.2 [...] - Chem istry sodium, serum 141 mmol/L 147-793 8232/11/19 potassium, serum 3.9 mmol/L 3.5-5.2 chloride, serum [...] 0.50 mg/dL 0.00-1.00 sodium, serum 142 mmol/L 807-183 9837/12/10 potassium, serum 3.9 mmol/L 3.5-5.2 chloride, serum [...] Diff/Morphology - Chemistry sodium, serum 142 mmol/L 169-667 9947/12/31 potassium, serum 3.6 mmol/L 3.5-5.2 chloride, serum [...] 3.5-5.2 Encounters Code Encounter Date Provider Facility CPT-77232 Level 3 New Patient 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 Hope landers MD PhD [facility] Procedures Code Procedure Name Date Entry Date Standard Desc ription CPT-74721 Postop F/U Visit 15:47:49 CDT CPT-04440 Postop F/U Visit 15:21:02 CDT CPT-TCMH Transitional Care Mgmt-High 07:52:27 CDT 20 20/06/01 CPT-49220 Venipuncture Draw Fee 13:51:18 CDT CPT-75682 Venipuncture Draw Fee 10:14:55 P[employer]ING STONE INST[employer]ER CPT-68706 Venipuncture Draw Fee 13:39:45 P[employer]ING STONE INSTALLER CPT-OV Office Visit 15:11:22 P[employer]ING STONE INSTALLER CPT-84918 Venipuncture Draw Fee 09:20:49 P[employer]ING STONE INSTALLER CPT-03823 Venipuncture Draw Fee 16:52:15 P[employer]ING STONE INSTALLER CPT-34513 Venipuncture Draw Fee 10:37:24 P[employer]ING STONE INSTALLER CPT-12340 Venipuncture Draw Fee 08:21:21 P[employer]ING STONE INSTALLER CPT-78354 Venipuncture Draw Fee 08:30:20 P[employer]ING STONE INSTALLER CPT-79968 Venipuncture Draw Fee 14:53:21 P[employer]ING STONE INST[employer]ER CPT-05543 Venipuncture Draw Fee 09:40:56 P[employer]ING STONE INSTALLER CPT-64191 Venipuncture Draw Fee 10:30:47 P[employer]ING STONE INSTALLER CPT-15345 Venipuncture Draw Fee 10:46:17 P[employer]ING STONE INSTALLER CPT-44234 Venipuncture Draw Fee 11:12:45 P[employer]ING STONE INSTALLER CPT-36084 Venipuncture Draw Fee 09:53:33 PAVING STONE INSTALLER CPT-69775 Venipuncture Draw Fee 11:53:51 P[employer]ING STONE INSTALLER CPT-61701 Venipuncture Draw Fee 10:33:50 P[employer]ING STONE INSTALLER CPT-65377 Venipuncture Draw Fee 10:05:01 P[employer]ING STONE INSTALLER CPT-69364 Venipuncture Draw Fee 14:32:52 P[employer]ING STONE INSTALLER CPT-67154 Venipuncture Draw Fee 09:46:13 PAVING STONE INSTALLER CPT-17504 Venipuncture Draw Fee 11:34:27 P[employer]ING STONE INSTALLER CPT-14130 Venipuncture Draw Fee 13:17:16 P[employer]ING STONE INSTALLER CPT-86987 Venipuncture Draw Fee 12:05:39 CDT CPT-95420 Venipuncture Draw Fee 12:49:12 CDT CPT-27727 Venipuncture Draw Fee 12:37:18 CDT CPT-47589 Venipuncture Draw Fee 10:57:11 CDT CPT-77660 Venipuncture Draw Fee 13:47:40 CDT CPT-75173 Venipuncture Draw Fee 10:02:17 CDT CPT-65592 TB Tubersol 17:32:32 CDT CPT-OV Office Visit 16:21:53 CDT CPT-OV Office Visit 15:49:22 CDT CPT-OV Office Visit 17:16:31 CDT CPT-OV Office Visit 10:43:31 CDT
--- OUTSIDE RECORDS SUMMARY | 2019-02-09 13:19 | XMS REPORT | Clinical Summary ---
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 dAam Yates MD Malignant neoplasm of cecum ABDOMINAL [...] MG CAPS 1 q d FLUOXETINE HCL 11922 437428 No Longer Active Hope Benavidez MD PhD Active INNOPRAN XL 120 MG [id number] Take one by mouth daily PROPRANOLOL HCL SR BEADS 81100577753 Active Hope Benavidez MD PhD Active POTASSIUM CHLORIDE 20 MEQ PACK by mouth twice a day prn POTASSIUM CHLORIDE 28241953324 Active Adam Yates MD Activ e CYCLOBENZAPRINE HCL 10 MG TABS 1 tablet by mouth three times daily as needed for headaches CYCLOBENZAPRINE HCL 94543830575 Active Selena Yates MD Active SIMVASTATIN 40 MG TABS 1 qd SIMVASTATIN 004 48750886 No Longer Active Adam Yates MD Active MELOXICAM 15 MG TABS 1 qd MELOXICAM 6515746 9302 No Longer Active Adam Yates MD Active ATENOLOL 50 MG TABS 1/2 tab q other day ATENOLOL 77892844952 Active Hope Benavidez MD PhD Active OMEPRAZOLE 20 MG CPDR 1 tablet by mouth daily for GERD OMEPRAZOLE 32789122478 Active Hpoe Benavidez MD PhD Active IMODIUM A-D 2 MG TABS 2 onset at diarrhea and prn. LOPERAMIDE HCL 73333833977 Active Hope Benavidez MD PhD Active PHENADOZ 25 MG SUPP 1 every 4 hrs. PRN PROMETHAZINE HCL 30878710831 Active Hope Benavidez MD PhD Active PROMETHAZINE HCL 25 MG TABS 1 Q. 4 hr. PRN PROMETH AZINE HCL 79906908400 Active Hope Benavidez MD PhD Active EXCEDRIN EXTRA STRENGTH 250-250-65 MG TABS 1-2 q6h PRN headache 201 04/16/21 [id number] 85861637158 Active Hope Benavidez MD PhD Active ZOFRAN 4 MG TABS 1 q 6 hr prn ONDANSETRON HCL 0205723 7002 Active Fay Alberts Active FLAGYL 500 MG TABS 1 qid METRONIDAZOLE 67128 208553 No Longer Active Adam Yates MD Active LEVAQUIN 750 MG TABS 1 qd LEVOFLOXACIN 5486 7400312 No Longer Active Adam Yates MD Active DYAZIDE 37.5-25 MG CAPS 1 qd TRIAMTERENE-HCTZ 5886 6867926 Active Hope Benavidez MD PhD Active ADULT ASPIRIN LOW STRENGTH 81 MG TBDP 1 qd A SPIRIN 19447833630 Active Hope Benavidez MD PhD Active LEVAQUIN 750 MG TABS 1 qd LEVAQUIN 750 MG T ABS 868410 LEVOFLOXACIN Inactive FLAGYL 500 MG TABS 1 qid FLAGYL 500 MG TABS 176163 METRONIDAZOLE Inactive MELOXICAM 15 MG TABS 1 qd MELOXICAM 15 MG T ABS 680713 MELOXICAM Inactive SIMVASTATIN 40 MG TABS 1 qd SIMVASTATIN 40 MG TABS 468874 SIMVASTATIN Inactive PROZAC 20 MG CAPS 1 [...] - Chem istry sodium, serum 137 mmol/L 389-276 2685/11/01 potassium, serum 3.7 mmol/L 3.5-5.2 chloride, serum 100 mmol/L 98-107 carbon dioxide, venous blood 31.8 mmol/L 21.0-32 .0 blood glucose 98 mg/dL 65-110 calcium, serum 8.6 mg/dL 8.5-10.1 urea nitrogen, blood 23 mg/dL 7-18 creatinine, serum 1.50 mg/dL 0.60-1.30 sodium, serum 136 mmol/L 848-458 5353/05/02 potassium, serum 4.1 mmol/L 3.5-5.2 chloride, serum [...] 11 .6-14.8 platelet count 133 10^3/MM^3 10*3/mm3 904-934 0882/01/17 leukocyte count, blood 3.1 10^3/MM^3 10*3/mm3 4.6-10.2 [...] 11 .6-14.8 platelet count 22 10^3/MM^3 10*3/mm3 030-898 5081/11/19 leukocyte count, blood 10.4 10^3/MM^3 10*3/mm3 4.6-10.2 [...] Verified By Repeat Analysis 10^3/mm ^3 10*3/mm3 865-096 2327/12/10 leukocyte count, blood 7.8 10^3/MM^3 10*3/mm3 4.6-10.2 [...] Panel - Chemistry sodium, serum 139 mmol/L 413-242 9982/12/03 potassium, serum 3.7 mmol/L 3.5-5.2 chloride, serum [...] 0.40 mg/dL 0.00-1.00 sodium, serum 137 mmol/L 974-498 0807/10/01 potassium, serum 3.5 mmol/L 3.5-5.2 chloride, serum [...] 0.60 mg/dL 0.00-1.00 sodium, serum 136 mmol/L 883-966 0367/10/08 potassium, serum 3.1 mmol/L 3.5-5.2 chloride, serum [...] 0.60 mg/dL 0.00-1.00 sodium, serum 139 mmol/L 660-609 1190/10/17 potassium, serum 3.1 mmol/L 3.5-5.2 chloride, serum [...] 0.30 mg/dL 0.00-1.00 sodium, serum 139 mmol/L 561-948 0486/01/21 potassium, serum 3.4 mmol/L 3.5-5.2 chloride, serum [...] 0.40 mg/dL 0.00-1.00 sodium, serum 138 mmol/L 760-724 5687/01/28 potassium, serum 3.2 mmol/L 3.5-5.2 chloride, serum [...] 0.40 mg/dL 0.00-1.00 sodium, serum 140 mmol/L 773-282 4761/02/04 potassium, serum 3.6 mmol/L 3.5-5.2 chloride, serum [...] 0.70 mg/dL 0.00-1.00 sodium, serum 142 mmol/L 262-353 7676/01/03 potassium, serum 3.4 mmol/L 3.5-5.2 chloride, serum [...] 0.50 mg/dL 0.00-1.00 sodium, serum 140 mmol/L 698-749 4214/01/06 potassium, serum 3.4 mmol/L 3.5-5.2 chloride, serum [...] 0.40 mg/dL 0.00-1.00 sodium, serum 136 mmol/L 373-427 1415/04/03 potassium, serum 3.7 mmol/L 3.5-5.2 chloride, serum [...] 0.40 mg/dL 0.00-1.00 sodium, serum 136 mmol/L 344-828 9858/02/11 potassium, serum 3.1 mmol/L 3.5-5.2 chloride, serum [...] 0.50 mg/dL 0.00-1.00 sodium, serum 139 mmol/L 243-610 9991/02/18 potassium, serum 3.6 mmol/L 3.5-5.2 chloride, serum [...] 11 .6-14.8 platelet count 246 10^3/MM^3 10*3/mm3 913-655 3451/02/18 leukocyte count, blood 4.0 10^3/MM^3 10*3/mm3 4.6-10.2 [...] 11 .6-14.8 platelet count 134 10^3/MM^3 10*3/mm3 610-727 5053/01/03 leukocyte count, blood 8.1 10^3/MM^3 10*3/mm3 4.6-10.2 [...] 11 .6-14.8 platelet count 96 10^3/MM^3 10*3/mm3 965-458 8259/01/06 leukocyte count, blood 7.6 10^3/MM^3 10*3/mm3 4.6-10.2 [...] 11 .6-14.8 platelet count 132 10^3/MM^3 10*3/mm3 486-442 6798/02/11 leukocyte count, blood 4.8 10^3/MM^3 10*3/mm3 4.6-10.2 [...] 11 .6-14.8 platelet count 102 10^3/MM^3 10*3/mm3 115-042 8403/02/04 leukocyte count, blood 3.6 10^3/MM^3 10*3/mm3 4.6-10.2 [...] 11 .6-14.8 platelet count 70 10^3/MM^3 10*3/mm3 552-120 9920/01/28 leukocyte count, blood 4.2 10^3/MM^3 10*3/mm3 4.6-10.2 [...] 11 .6-14.8 platelet count 73 10^3/MM^3 10*3/mm3 737-420 8872/01/21 leukocyte count, blood 4.9 10^3/MM^3 10*3/mm3 4.6-10.2 [...] .6-14.8 platelet count 38 recounted 10^3/mm^3 10*3/mm3 974-186 7396/10/08 leukocyte count, blood 2.9 10^3/MM^3 10*3/mm3 4.6-10.2 [...] 11 .6-14.8 platelet count 229 10^3/MM^3 10*3/mm3 878-469 1397/10/17 leukocyte count, blood 12.0 10^3/MM^3 10*3/mm3 4.6-10.2 [...] 11 .6-14.8 platelet count 232 10^3/MM^3 10*3/mm3 437-132 2378/10/01 leukocyte count, blood 8.3 10^3/MM^3 10*3/mm3 4.6-10.2 [...] 11 .6-14.8 platelet count 378 10^3/MM^3 10*3/mm3 826-659 0227/12/03 leukocyte count, blood 8.2 10^3/MM^3 10*3/mm3 4.6-10.2 [...] Diff/Morphology - Chemistry sodium, serum 141 mmol/L 122-933 9544/11/25 potassium, serum 3.9 mmol/L 3.5-5.2 chloride, serum [...] 0.50 mg/dL 0.00-1.00 sodium, serum 137 mmol/L 395-410 7739/11/12 potassium, serum 3.2 mmol/L 3.5-5.2 chloride, serum [...] 0.40 mg/dL 0.00-1.00 sodium, serum 140 mmol/L 463-738 0964/12/17 potassium, serum 3.3 mmol/L 3.5-5.2 chloride, serum [...] 0.40 mg/dL 0.00-1.00 sodium, serum 138 mmol/L 173-058 6405/12/24 potassium, serum 3.7 mmol/L 3.5-5.2 chloride, serum [...] 0.50 mg/dL 0.00-1.00 sodium, serum 138 mmol/L 377-828 3731/11/05 potassium, serum 3.9 mmol/L 3.5-5.2 chloride, serum [...] 0.40 mg/dL 0.00-1.00 sodium, serum 135 mmol/L 154-313 8359/10/22 potassium, serum 3.0 mmol/L 3.5-5.2 chloride, serum [...] 0.50 mg/dL 0.00-1.00 sodium, serum 128 mmol/L 103-205 0958/10/29 potassium, serum 2.6 mmol/L 3.5-5.2 chloride, serum [...] 0.50 mg/dL 0.00-1.00 sodium, serum 141 mmol/L 959-997 0432/01/14 potassium, serum 3.9 mmol/L 3.5-5.2 chloride, serum [...] 11 .6-14.8 platelet count 22 10^3/MM^3 10*3/mm3 504-133 6891/10/22 leukocyte count, blood 14.7 10^3/MM^3 10*3/mm3 4.6-10.2 [...] 11 .6-14.8 platelet count 428 10^3/MM^3 10*3/mm3 240-280 5228/10/29 leukocyte count, blood 26.3 10^3/MM^3 10*3/mm3 4.6-10.2 [...] 11 .6-14.8 platelet count 268 10^3/MM^3 10*3/mm3 083-493 8247/11/12 leukocyte count, blood 12.1 10^3/MM^3 10*3/mm3 4.6-10.2 [...] 11 .6-14.8 platelet count 157 10^3/MM^3 10*3/mm3 271-829 3709/11/05 leukocyte count, blood 16.4 10^3/MM^3 10*3/mm3 4.6-10.2 [...] 11 .6-14.8 platelet count 215 10^3/MM^3 10*3/mm3 257-948 3254/12/24 leukocyte count, blood 14.0 10^3/MM^3 10*3/mm3 4.6-10.2 [...] 11 .6-14.8 platelet count 66 10^3/MM^3 10*3/mm3 295-439 5315/12/17 leukocyte count, blood 18.6 10^3/MM^3 10*3/mm3 4.6-10.2 [...] 11 .6-14.8 platelet count 75 10^3/MM^3 10*3/mm3 676-850 9318/11/25 leukocyte count, blood 21.1 10^3/MM^3 10*3/mm3 4.6-10.2 [...] 11 .6-14.8 platelet count 413 10^3/MM^3 10*3/mm3 291-532 2158/01/16 leukocyte count, blood 3.6 10^3/MM^3 10*3/mm3 4.6-10.2 [...] - Chem istry sodium, serum 141 mmol/L 726-590 7269/11/19 potassium, serum 3.9 mmol/L 3.5-5.2 chloride, serum [...] 0.50 mg/dL 0.00-1.00 sodium, serum 142 mmol/L 214-775 4848/12/10 potassium, serum 3.9 mmol/L 3.5-5.2 chloride, serum [...] Diff/Morphology - Chemistry sodium, serum 142 mmol/L 262-897 7966/12/31 potassium, serum 3.6 mmol/L 3.5-5.2 chloride, serum [...] 3.5-5.2 Encounters Code Encounter Date Provider Facility CPT-98443 Level 3 New Patient 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 Hope landers MD PhD [facility] Procedures Code Procedure Name Date Entry Date Standard Desc ription CPT-55752 Postop F/U Visit 15:21:02 CDT CPT-TCMH Transitional Care Mgmt-High 07:52:27 CDT 20 20/06/01 CPT-34413 Venipuncture Draw Fee 13:51:18 CDT CPT-65564 Venipuncture Draw Fee 10:14:55 EMERGENCY MEDICAL TECHNICIAN BASIC CPT-36075 Venipuncture Draw Fee 13:39:45 EMERGENCY MEDICAL TECHNICIAN BASIC CPT-OV Office Visit 15:11:22 EMERGENCY MEDICAL TECHNICIAN BASIC CPT-56726 Venipuncture Draw Fee 09:20:49 EMERGENCY MEDICAL TECHNICIAN BASIC CPT-03823 Venipuncture Draw Fee 16:52:15 EMERGENCY MEDICAL TECHNICIAN BASIC CPT-99573 Venipuncture Draw Fee 10:37:24 EMERGENCY MEDICAL TECHNICIAN BASIC CPT-24566 Venipuncture Draw Fee 08:21:21 EMERGENCY MEDICAL TECHNICIAN BASIC CPT-58802 Venipuncture Draw Fee 08:30:20 EMERGENCY MEDICAL TECHNICIAN BASIC CPT-94365 Venipuncture Draw Fee 14:53:21 EMERGENCY MEDICAL TECHNICIAN BASIC CPT-97347 Venipuncture Draw Fee 09:40:56 EMERGENCY MEDICAL TECHNICIAN BASIC CPT-44587 Venipuncture Draw Fee 10:30:47 EMERGENCY MEDICAL TECHNICIAN BASIC CPT-37496 Venipuncture Draw Fee 10:46:17 EMERGENCY MEDICAL TECHNICIAN BASIC CPT-49713 Venipuncture Draw Fee 11:12:45 EMERGENCY MEDICAL TECHNICIAN BASIC CPT-81624 Venipuncture Draw Fee 09:53:33 EMERGENCY MEDICAL TECHNICIAN BASIC CPT-39320 Venipuncture Draw Fee 11:53:51 EMERGENCY MEDICAL TECHNICIAN BASIC CPT-75949 Venipuncture Draw Fee 10:33:50 EMERGENCY MEDICAL TECHNICIAN BASIC CPT-79465 Venipuncture Draw Fee 10:05:01 EMERGENCY MEDICAL TECHNICIAN BASIC CPT-08191 Venipuncture Draw Fee 14:32:52 EMERGENCY MEDICAL TECHNICIAN BASIC CPT-87161 Venipuncture Draw Fee 09:46:13 EMERGENCY MEDICAL TECHNICIAN BASIC CPT-88779 Venipuncture Draw Fee 11:34:27 EMERGENCY MEDICAL TECHNICIAN BASIC CPT-30766 Venipuncture Draw Fee 13:17:16 EMERGENCY MEDICAL TECHNICIAN BASIC CPT-51866 Venipuncture Draw Fee 12:05:39 CDT CPT-76303 Venipuncture Draw Fee 12:49:12 CDT CPT-96190 Venipuncture Draw Fee 12:37:18 CDT CPT-22804 Venipuncture Draw Fee 10:57:11 CDT CPT-64401 Venipuncture Draw Fee 13:47:40 CDT CPT-21045 Venipuncture Draw Fee 10:02:17 CDT CPT-79559 TB Tubersol 17:32:32 CDT CPT-OV Office Visit 16:21:53 CDT CPT-OV Office Visit 15:49:22 CDT CPT-OV Office Visit 17:16:31 CDT CPT-OV Office Visit 10:43:31 CDT
--- OUTSIDE RECORDS SUMMARY | 2019-02-09 13:20 | XMS REPORT | Clinical Summary ---
Author Author Renaldo, Florecita Munoz Organization 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 Dick Yates MD [...] 1 injection every 2 weeks 01/09 CYANOCOBALAMIN 98888221380 Active Laura Elder Active VITAMIN D3 4000 IU 1 tab 3 times daily VITAMIN D3 400 0 IU Active Hope Benavidez MD PhD Active BACTRIM DS 800-160 MG TABS 1 pill by mouth twice daily, for UTI SULFAMETHOXAZOLE-TRIMETHOPRIM 27003792612 No Longer Active A attila Benavidez MD PhD Active PROLIA 60 MG/ML SOLN 1 shot every 6 months for osteoprosis DENOSUMAB 84054036403 Active Hope Benavidez MD PhD Active CALCIUM + D + K 750-500-40 MG-UNT-MCG TABS 1 tab by mouth tw ice daily CALCIUM-VITAMIN D-VITAMIN K 40802591829 Active Hope landers MD PhD Active DAILY VALUE MULTIVITAMIN TABS 1 tab by mouth twice daily MULTIPLE VITAMIN 34762454662 Active Hope Benavidez MD PhD Active FISH OIL 306 MG CAPS 1 tab by mouth three times daily OMEGA-3 FATTY ACIDS 34830580830 Active Hope Benavidez MD PhD Active LUTEIN 10 MG TABS 1 tab daily LUTEIN 35361670608 Act cash Hope Benavidez MD PhD Active FLORANEX PACK 1 pack three times daily, for bowel health LACTOBACILLUS 22767908541 Active Hope Benavidez MD PhD Active LOMOTIL 2.5-0.025 MG TABS 1 tab by mouth prn DIPHENOXYLATE-ATROPINE 46826505357 Active Hope Benavidez MD PhD Active TRIAMTERENE-HCTZ 37.5-25 MG TABS 1 tab by mouth daily TRIAMTERENE-HCTZ 73349378636 Active Hope Benavidez MD PhD Acti ve IRON 325 (65 FE) MG TABS 1 tab daily FERROUS SULF ATE 41207702673 Active Hope Benavidez MD PhD Active MAGNESIUM GLUCONATE 250 MG TABS 1 tab tid MAGN ESIUM GLUCONATE 45618728804 Active Adam Yates MD Active ATENOLOL 50 MG TABS 1/2 tab q other day m-w-f ATE NOLOL 11117786231 Active Hope Benavidez MD PhD Active PROPRANOLOL HCL 80 MG TABS 1 tab tue. and thur. PROPRANOLOL HCL 92645265014 Active Adam Yates MD Active CYCLOBENZAPRINE HCL 10 MG TABS 1 tablet by mouth three times daily as needed for headaches CYCLOBENZAPRINE HCL 96417028052 No Longe r Active Adam Yates MD Active OMEPRAZOLE 20 MG CPDR 1 tablet by mouth daily for GERD OMEPRAZOLE 70018989163 No Longer Active Adam Yates MD A ctive ZOFRAN 8 MG TABS 1 tab by mouth every 12 hours prn 201 05/16/09 ONDANSETRON HCL 70348637948 No Longer Active Adam Yates MD Active PHENADOZ 25 MG SUPP 1 every 4 hrs. PRN PROMETHA ZINE HCL 25463694369 No Longer Active Adam Yates MD Active POTASSIUM CHLORIDE 20 MEQ PACK by mouth twice a day prn POTASSIUM CHLORIDE 52627855631 No Longer Active Adam Yates MD Active PROMETHAZINE HCL 25 MG TABS 1 Q. 4 hr. PRN PROM ETHAZINE HCL 68816090684 No Longer Active Adam Yates MD Active INNOPRAN XL 120 MG [id number] Take one by mouth daily 2 PROPRANOLOL HCL SR BEADS 29423178610 No Longer Active Adam Yates MD A ctive FLAGYL 500 MG TABS 1 pill by mouth three times daily, for diarrh ea METRONIDAZOLE 04891445942 No Longer Active Hope Benavidez MD PhD Active DYAZIDE 37.5-25 MG CAPS 1 qd TRIAMTERENE-HC TZ 72039957096 No Longer Active Hope Benavidez MD PhD Active PROZAC 20 MG CAPS 1 q d FLUOXETINE HCL 84474 529030 No Longer Active Hope Benavidez MD PhD Active SIMVASTATIN 40 MG TABS 1 qd SIMVASTATIN 004 72671853 No Longer Active Adam Yates MD Active MELOXICAM 15 MG TABS 1 qd MELOXICAM 9046455 9054 No Longer Active Adam Yates MD Active IMODIUM A-D 2 MG TABS 2 onset at diarrhea and prn. LOPERAMIDE HCL 48499183449 Active Hope Benavidez MD PhD Active EXCEDRIN EXTRA STRENGTH 250-250-65 MG TABS 1-2 q6h PRN headache 201 04/16/21 [id number] 34370754339 Active Hope Benavidez MD PhD Active FLAGYL 500 MG TABS 1 qid METRONIDAZOLE 25438 469113 No Longer Active Adam Yates MD Active LEVAQUIN 750 MG TABS 1 qd LEVOFLOXACIN 5486 1976224 No Longer Active Adam Yates MD Active ADULT ASPIRIN LOW STRENGTH 81 MG TBDP 1 qd A SPIRIN 59031208675 Active Hope Benavidez MD PhD Active LEVAQUIN 750 MG TABS 1 qd LEVAQUIN 750 MG T ABS 975386 LEVOFLOXACIN Inactive FLAGYL 500 MG TABS 1 qid FLAGYL 500 MG TABS 727800 METRONIDAZOLE Inactive MELOXICAM 15 MG TABS 1 qd MELOXICAM 15 MG T ABS 213494 MELOXICAM Inactive SIMVASTATIN 40 MG TABS 1 qd SIMVASTATIN 40 MG TABS 037243 SIMVASTATIN Inactive PROZAC 20 MG CAPS 1 q d PROZAC 20 MG CAPS 31 0385 FLUOXETINE HCL Inactive DYAZIDE 37.5-25 MG CAPS 1 qd DYAZIDE 37.5 -25 MG CAPS 807725 TRIAMTERENE-HCTZ Inactive INNOPRAN XL 120 MG [id number] Take one by mouth daily 2 INNOPRAN XL 120 MG [id number] PROPRANOLOL HCL SR BEADS Inactive PROMETHAZINE HCL 25 MG TABS 1 Q. 4 hr. PRN PROMETHAZINE HCL 25 MG TABS 419825 PROMETHAZINE HCL Inactive POTASSIUM CHLORIDE 20 MEQ PACK by mouth twice a day prn POTASSIUM CHLORIDE 20 MEQ PACK 019596 POTASSIUM CHLORIDE Inactive PHENADOZ 25 MG SUPP 1 every 4 hrs. PRN PHENADOZ 2 5 MG SUPP 256952 PROMETHAZINE HCL Inactive ZOFRAN 8 MG TABS 1 tab by mouth every 12 hours prn 201 05/16/09 ZOFRAN 8 MG TABS 146076 ONDANSETRON HCL Inactive OMEPRAZOLE 20 MG CPDR 1 tablet by mouth daily for GERD OMEPRAZOLE 20 MG CPDR 497336 OMEPRAZOLE Inactive CYCLOBENZAPRINE HCL 10 MG TABS 1 tablet by mouth three times daily as needed for headaches CYCLOBENZAPRINE HCL 10 MG TABS 453431 CYCLOBENZAPRINE HCL Inactive FLAGYL 500 MG TABS 1 pill by mouth three times daily, for diarrh ea FLAGYL 500 MG TABS 338689 METRONIDAZOLE Inactive BACTRIM DS 800-160 MG TABS [...] Range Description Chart Maintenance: labs added to [employer] et - Chemistry magnesium, serum 2.0 mg/dL Chart Maintenance: Outside labs entered on [employer] - Chemistry sodium, serum 139 mmol/L potassium, serum 3.9 mmol/L blood glucose 85 mg/dL creatinine, serum 1.26 mg/dL aspartate aminotransferase (SGOT), serum 33 U/L alanine aminotransferase (SGPT), serum 44 U/L alkaline phosphatase, serum 127 U/L Chart Maintenance: Outside labs entered on [employer] - Hematology leukocyte count, blood 4.6 10*3/mm3 hemoglobin, blood 13.6 g/dL platelet count 162 10*3/mm3 Lab Report: Basic Metabolic Panel - Chem istry sodium, serum 136 mmol/L 194-620 2926/05/02 potassium, serum 4.1 mmol/L 3.5-5.2 chloride, serum 99 mmol/L 98-107 carbon dioxide, venous blood 30.7 mmol/L 21.0-32 .0 blood glucose 79 mg/dL 65-110 calcium, serum 8.7 mg/dL 8.5-10.1 urea nitrogen, blood 11 mg/dL 7-18 creatinine, serum 1.10 mg/dL 0.60-1.30 Lab Report: [facility] - Chemistry sodium, serum 141 mmol/L potassium, serum 4.2 mmol/L blood glucose 66 mg/dL creatinine, serum 1.16 mg/dL Lab Report: CBC W/ DIFF, [facility] - Chemistry sodium, serum 137 mmol/L potassium, serum 3.8 mmol/L blood glucose 79 mg/dL creatinine, serum 1.02 mg/dL magnesium, serum 1.2 mg/dL Lab Report: CBC W/ DIFF, [facility] - Hematology leukocyte [...] 11 .6-14.8 platelet count 133 10^3/MM^3 10*3/mm3 393-247 5324/01/17 leukocyte count, blood 3.1 10^3/MM^3 10*3/mm3 4.6-10.2 [...] Panel - Chemistry sodium, serum 140 mmol/L 423-787 1169/01/06 potassium, serum 3.4 mmol/L 3.5-5.2 chloride, serum [...] 0.40 mg/dL 0.00-1.00 sodium, serum 139 mmol/L 570-755 4306/01/21 potassium, serum 3.4 mmol/L 3.5-5.2 chloride, serum [...] 0.40 mg/dL 0.00-1.00 sodium, serum 138 mmol/L 078-899 1709/01/28 potassium, serum 3.2 mmol/L 3.5-5.2 chloride, serum [...] 0.40 mg/dL 0.00-1.00 sodium, serum 140 mmol/L 155-903 3100/02/04 potassium, serum 3.6 mmol/L 3.5-5.2 chloride, serum [...] 0.70 mg/dL 0.00-1.00 sodium, serum 136 mmol/L 526-494 7876/02/11 potassium, serum 3.1 mmol/L 3.5-5.2 chloride, serum [...] 0.50 mg/dL 0.00-1.00 sodium, serum 138 mmol/L 811-666 0365/08/14 potassium, serum 4.0 mmol/L 3.5-5.2 chloride, serum [...] 0.40 mg/dL 0.00-1.00 sodium, serum 136 mmol/L 201-548 0514/04/03 potassium, serum 3.7 mmol/L 3.5-5.2 chloride, serum [...] 0.40 mg/dL 0.00-1.00 sodium, serum 139 mmol/L 482-168 5378/02/18 potassium, serum 3.6 mmol/L 3.5-5.2 chloride, serum [...] 11 .6-14.8 platelet count 246 10^3/MM^3 10*3/mm3 153-145 3196/08/14 leukocyte count, blood 5.8 10^3/MM^3 10*3/mm3 4.6-10.2 [...] 11 .6-14.8 platelet count 193 10^3/MM^3 10*3/mm3 498-986 4333/02/18 leukocyte count, blood 4.0 10^3/MM^3 10*3/mm3 4.6-10.2 [...] 11 .6-14.8 platelet count 134 10^3/MM^3 10*3/mm3 501-719 9169/02/11 leukocyte count, blood 4.8 10^3/MM^3 10*3/mm3 4.6-10.2 [...] 11 .6-14.8 platelet count 102 10^3/MM^3 10*3/mm3 075-067 2162/02/04 leukocyte count, blood 3.6 10^3/MM^3 10*3/mm3 4.6-10.2 [...] 11 .6-14.8 platelet count 70 10^3/MM^3 10*3/mm3 779-810 7107/01/28 leukocyte count, blood 4.2 10^3/MM^3 10*3/mm3 4.6-10.2 [...] 11 .6-14.8 platelet count 73 10^3/MM^3 10*3/mm3 695-783 7139/01/06 leukocyte count, blood 7.6 10^3/MM^3 10*3/mm3 4.6-10.2 [...] 11 .6-14.8 platelet count 132 10^3/MM^3 10*3/mm3 498-358 9704/01/21 leukocyte count, blood 4.9 10^3/MM^3 10*3/mm3 4.6-10.2 [...] Diff/Morphology - Chemistry sodium, serum 141 mmol/L 076-754 4975/01/14 potassium, serum 3.9 mmol/L 3.5-5.2 chloride, serum [...] Panel - Chemistry cholesterol, serum 209 mg/dL 618-353 6381/09/11 triglyceride, serum, fasting 113 mg/dL 30-200 HDL [...] semiquantitative 7.0 5.0-8.5 Lab Report: VITAMIN D, 25-HYDROXY/94062, MAGNESIUM/622 - Chemistry vitamin D 25-hydroxy, serum 41 ng/mL 30-100 Encounters Code Encounter Date Provider Facility CPT-86325 Level 4 Est. Patient 19:08:42 ALLERGIST/PEDIATRIC PULMONOLOGIST Hope cohn MD PhD [facility] CPT-41371 Level 4 Est. Patient 20:04:51 CDT Hope cohn MD PhD [facility] CPT-08356 Level 3 New Patient 01:46:11 ALLERGIST/PEDIATRIC PULMONOLOGIST Hope landers MD PhD [facility] Procedures Code Procedure Name Date Entry Date Standard Desc ription CPT-J3420 Vitamin B12 1000mcg (Cyanocobalamin) 09:46:44 ALLERGIST/PEDIATRIC PULMONOLOGIST CPT-47785 Abx/Therapy Injection 09:46:44 ALLERGIST/PEDIATRIC PULMONOLOGIST CPT-J3420 Vitamin B12 1000mcg (Cyanocobalamin) 09:47:34 ALLERGIST/PEDIATRIC PULMONOLOGIST CPT-69589 Abx/Therapy Injection 09:47:34 ALLERGIST/PEDIATRIC PULMONOLOGIST CPT-J3420 Vitamin B12 1000mcg (Cyanocobalamin) 14:35:50 ALLERGIST/PEDIATRIC PULMONOLOGIST CPT-J3420 Vitamin B12 1000mcg (Cyanocobalamin) 09:25:05 ALLERGIST/PEDIATRIC PULMONOLOGIST CPT-05557 Abx/Therapy Injection 09:25:05 ALLERGIST/PEDIATRIC PULMONOLOGIST CPT-G0008 Administration of Influenza Virus Vaccine 13:36:47 CDT CPT-57331 Fluzone High-Dose Intramuscular Suspension 11/15 13:36:47 CDT CPT-J0897 Prolia 60 mg 08:50:41 CDT CPT-99507 Abx/Therapy Injection 08:50:41 CDT CPT-64084 Bone Density 12:06:12 CDT CPT-32296 Bone Density 08:54:40 CDT CPT-OV Office Visit 15:37:02 CDT CPT-27974 Postop F/U Visit 15:47:49 CDT CPT-10832 Postop F/U Visit 15:21:02 CDT CPT-[facility] Transitional Care Mgmt-High 07:52:27 CDT 20 20/06/01 CPT-30578 Venipuncture Draw Fee 13:51:18 CDT CPT-22826 Venipuncture Draw Fee 10:14:55 ALLERGIST/PEDIATRIC PULMONOLOGIST CPT-40233 Venipuncture Draw Fee 13:39:45 ALLERGIST/PEDIATRIC PULMONOLOGIST CPT-OV Office Visit 15:11:22 ALLERGIST/PEDIATRIC PULMONOLOGIST CPT-06377 Venipuncture Draw Fee 09:20:49 ALLERGIST/PEDIATRIC PULMONOLOGIST CPT-41284 Venipuncture Draw Fee 16:52:15 ALLERGIST/PEDIATRIC PULMONOLOGIST CPT-36195 Venipuncture Draw Fee 10:37:24 ALLERGIST/PEDIATRIC PULMONOLOGIST 2014/01/ 21 CPT-03446 Venipuncture Draw Fee 08:21:21 ALLERGIST/PEDIATRIC PULMONOLOGIST CPT-24742 Venipuncture Draw Fee 08:30:20 ALLERGIST/PEDIATRIC PULMONOLOGIST CPT-01730 Venipuncture Draw Fee 14:53:21 ALLERGIST/PEDIATRIC PULMONOLOGIST CPT-61569 Venipuncture Draw Fee 09:40:56 ALLERGIST/PEDIATRIC PULMONOLOGIST CPT-50814 Venipuncture Draw Fee 10:30:47 ALLERGIST/PEDIATRIC PULMONOLOGIST CPT-16050 Venipuncture Draw Fee 10:46:17 ALLERGIST/PEDIATRIC PULMONOLOGIST CPT-70193 Venipuncture Draw Fee 11:12:45 ALLERGIST/PEDIATRIC PULMONOLOGIST CPT-51784 Venipuncture Draw Fee 09:53:33 ALLERGIST/PEDIATRIC PULMONOLOGIST CPT-39477 Venipuncture Draw Fee 11:53:51 ALLERGIST/PEDIATRIC PULMONOLOGIST CPT-68594 Venipuncture Draw Fee 10:33:50 ALLERGIST/PEDIATRIC PULMONOLOGIST CPT-50104 Venipuncture Draw Fee 10:05:01 ALLERGIST/PEDIATRIC PULMONOLOGIST CPT-58267 Venipuncture Draw Fee 14:32:52 ALLERGIST/PEDIATRIC PULMONOLOGIST CPT-07604 Venipuncture Draw Fee 09:46:13 ALLERGIST/PEDIATRIC PULMONOLOGIST CPT-46041 Venipuncture Draw Fee 11:34:27 ALLERGIST/PEDIATRIC PULMONOLOGIST CPT-52028 Venipuncture Draw Fee 13:17:16 ALLERGIST/PEDIATRIC PULMONOLOGIST CPT-58044 Venipuncture Draw Fee 12:05:39 CDT CPT-59645 Venipuncture Draw Fee 12:49:12 CDT CPT-94036 Venipuncture Draw Fee 12:37:18 CDT CPT-25348 Venipuncture Draw Fee 10:57:11 CDT CPT-67019 Venipuncture Draw Fee 13:47:40 CDT CPT-64245 Venipuncture Draw Fee 10:02:17 CDT CPT-86757 TB Tubersol 17:32:32 CDT CPT-OV Office Visit 16:21:53 CDT CPT-OV Office Visit 15:49:22 CDT CPT-OV Office Visit 17:16:31 CDT CPT-OV Office Visit 10:43:31 CDT
--- OUTSIDE RECORDS SUMMARY | 2019-02-09 13:20 | XMS REPORT | Clinical Summary ---
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 Inac tive Hope Benavidez MD PhD Hyperkalemia ICD-276.7 Inactive Hope Benavidez MD PhD Health maintenance exam ICD-V70.0 Bam Yates MD Medication List Medication Instructions Start Date Stop Date Generic Name ND Status Provider Patient Instruction PROZAC 20 MG CAPS 1 q d FLUOXETINE HCL 89562 023985 No Longer Active Hope Benavidez MD PhD Active INNOPRAN XL 120 MG [id number] Take one by mouth daily PROPRANOLOL HCL SR BEADS 19722326174 Active Hope Benavidez MD PhD Active POTASSIUM CHLORIDE 20 MEQ PACK by mouth twice a day prn POTASSIUM CHLORIDE 90181215940 Active Adam Yates MD Activ e CYCLOBENZAPRINE HCL 10 MG TABS 1 tablet by mouth three times daily as needed for headaches CYCLOBENZAPRINE HCL 52739647478 Active Selena Yates MD Active SIMVASTATIN 40 MG TABS 1 qd SIMVASTATIN 004 17542018 No Longer Active Adam Yates MD Active MELOXICAM 15 MG TABS 1 qd MELOXICAM 6024135 5425 No Longer Active Adam Yates MD Active ATENOLOL 50 MG TABS 1/2 tab q other day ATENOLOL 28445566487 Active Hope Benavidez MD PhD Active OMEPRAZOLE 20 MG CPDR 1 tablet by mouth daily for GERD OMEPRAZOLE 92829177594 Active Hope Benavidez MD PhD Active IMODIUM A-D 2 MG TABS 2 onset at diarrhea and prn. LOPERAMIDE HCL 74975884097 Active Hope Benavidez MD PhD Active PHENADOZ 25 MG SUPP 1 every 4 hrs. PRN PROMETHAZINE HCL 24116422534 Active Hope Benavidez MD PhD Active PROMETHAZINE HCL 25 MG TABS 1 Q. 4 hr. PRN PROMETH AZINE HCL 20293853723 Active Hope Benavidez MD PhD Active EXCEDRIN EXTRA STRENGTH 250-250-65 MG TABS 1-2 q6h PRN headache 201 04/16/21 [id number]-ADYHBIIT 12603182886 Active Hope Benavidez MD PhD Active ZOFRAN 4 MG TABS 1 q 6 hr prn ONDANSETRON HCL 3997773 7002 Active Fay Alberts Active FLAGYL 500 MG TABS 1 qid METRONIDAZOLE 76453 874897 No Longer Active Adam Yates MD Active LEVAQUIN 750 MG TABS 1 qd LEVOFLOXACIN 5486 1398021 No Longer Active Adam Yates MD Active DYAZIDE 37.5-25 MG CAPS 1 qd TRIAMTERENE-HCTZ 5886 2087657 Active Hope Benavidez MD PhD Active ADULT ASPIRIN LOW STRENGTH 81 MG TBDP 1 qd A SPIRIN 23584908366 Active Hope Benavidez MD PhD Active LEVAQUIN 750 MG TABS 1 qd LEVAQUIN 750 MG T ABS 890773 LEVOFLOXACIN Inactive FLAGYL 500 MG TABS 1 qid FLAGYL 500 MG TABS 008387 METRONIDAZOLE Inactive MELOXICAM 15 MG TABS 1 qd MELOXICAM 15 MG T ABS 841873 MELOXICAM Inactive SIMVASTATIN 40 MG TABS 1 qd SIMVASTATIN 40 MG TABS 321628 SIMVASTATIN Inactive PROZAC 20 MG CAPS 1 [...] - Chem istry sodium, serum 137 mmol/L 725-919 7099/11/01 potassium, serum 3.7 mmol/L 3.5-5.2 chloride, serum 100 mmol/L 98-107 carbon dioxide, venous blood 31.8 mmol/L 21.0-32 .0 blood glucose 98 mg/dL 65-110 calcium, serum 8.6 mg/dL 8.5-10.1 urea nitrogen, blood 23 mg/dL 7-18 creatinine, serum 1.50 mg/dL 0.60-1.30 sodium, serum 136 mmol/L 793-352 8658/05/02 potassium, serum 4.1 mmol/L 3.5-5.2 chloride, serum [...] 11 .6-14.8 platelet count 133 10^3/MM^3 10*3/mm3 368-549 5131/01/17 leukocyte count, blood 3.1 10^3/MM^3 10*3/mm3 4.6-10.2 [...] 11 .6-14.8 platelet count 22 10^3/MM^3 10*3/mm3 390-931 5678/11/19 leukocyte count, blood 10.4 10^3/MM^3 10*3/mm3 4.6-10.2 [...] Verified By Repeat Analysis 10^3/mm ^3 10*3/mm3 900-918 8141/12/10 leukocyte count, blood 7.8 10^3/MM^3 10*3/mm3 4.6-10.2 [...] Panel - Chemistry sodium, serum 139 mmol/L 337-707 9715/12/03 potassium, serum 3.7 mmol/L 3.5-5.2 chloride, serum [...] 0.40 mg/dL 0.00-1.00 sodium, serum 137 mmol/L 554-089 4363/10/01 potassium, serum 3.5 mmol/L 3.5-5.2 chloride, serum [...] 0.60 mg/dL 0.00-1.00 sodium, serum 136 mmol/L 359-266 5449/10/08 potassium, serum 3.1 mmol/L 3.5-5.2 chloride, serum [...] 0.60 mg/dL 0.00-1.00 sodium, serum 139 mmol/L 747-071 1261/10/17 potassium, serum 3.1 mmol/L 3.5-5.2 chloride, serum [...] 0.30 mg/dL 0.00-1.00 sodium, serum 139 mmol/L 912-763 6707/01/21 potassium, serum 3.4 mmol/L 3.5-5.2 chloride, serum [...] 0.40 mg/dL 0.00-1.00 sodium, serum 138 mmol/L 638-562 2204/01/28 potassium, serum 3.2 mmol/L 3.5-5.2 chloride, serum [...] 0.40 mg/dL 0.00-1.00 sodium, serum 140 mmol/L 535-426 3194/02/04 potassium, serum 3.6 mmol/L 3.5-5.2 chloride, serum [...] 0.70 mg/dL 0.00-1.00 sodium, serum 142 mmol/L 208-942 3968/01/03 potassium, serum 3.4 mmol/L 3.5-5.2 chloride, serum [...] 0.50 mg/dL 0.00-1.00 sodium, serum 140 mmol/L 490-070 0616/01/06 potassium, serum 3.4 mmol/L 3.5-5.2 chloride, serum 101 mmol/L 98-107 carbon dioxide, venous blood 30.4 mmol/L 21.0-32 .0 blood glucose 112 mg/dL 65-110 urea nitrogen, blood 21 mg/dL 7-18 creatinine, serum 1.40 mg/dL 0.60-1.30 alanine aminotransferase (SGPT), serum 16 U/L - aspartate aminotransferase (SGOT), serum 24 U/L -37 alkaline phosphatase, serum 147 U/L 50-136 calcium, serum 8.7 mg/dL 8.5-10.1 bilirubin, serum, total 0.40 mg/dL 0.00-1.00 sodium, serum 136 mmol/L 182-294 3294/04/03 potassium, serum 3.7 mmol/L 3.5-5.2 chloride, serum 98 mmol/L 98-107 carbon dioxide, venous blood 29.6 mmol/L 21.0-32 .0 blood glucose 95 mg/dL 65-110 urea nitrogen, blood 22 mg/dL 7-18 creatinine, serum 1.10 mg/dL 0.60-1.30 alanine aminotransferase (SGPT), serum 12 U/L -78 aspartate aminotransferase (SGOT), serum 15 U/L -37 alkaline phosphatase, serum 105 U/L 50-136 calcium, serum 8.4 mg/dL 8.5-10.1 bilirubin, serum, total 0.40 mg/dL 0.00-1.00 sodium, serum 136 mmol/L 651-593 0016/02/11 potassium, serum 3.1 mmol/L 3.5-5.2 chloride, serum [...] 0.50 mg/dL 0.00-1.00 sodium, serum 139 mmol/L 023-764 2487/02/18 potassium, serum 3.6 mmol/L 3.5-5.2 chloride, serum [...] 11 .6-14.8 platelet count 246 10^3/MM^3 10*3/mm3 155-699 6148/02/18 leukocyte count, blood 4.0 10^3/MM^3 10*3/mm3 4.6-10.2 [...] 11 .6-14.8 platelet count 134 10^3/MM^3 10*3/mm3 831-457 3273/01/03 leukocyte count, blood 8.1 10^3/MM^3 10*3/mm3 4.6-10.2 [...] 11 .6-14.8 platelet count 96 10^3/MM^3 10*3/mm3 204-264 4557/01/06 leukocyte count, blood 7.6 10^3/MM^3 10*3/mm3 4.6-10.2 [...] 11 .6-14.8 platelet count 132 10^3/MM^3 10*3/mm3 971-679 4044/02/11 leukocyte count, blood 4.8 10^3/MM^3 10*3/mm3 [...] 11 .6-14.8 platelet count 102 10^3/MM^3 10*3/mm3 023-176 6504/02/04 leukocyte count, blood 3.6 10^3/MM^3 10*3/mm3 4.6-10.2 [...] 11 .6-14.8 platelet count 70 10^3/MM^3 10*3/mm3 864-294 6928/01/28 leukocyte count, blood 4.2 10^3/MM^3 10*3/mm3 4.6-10.2 [...] 11 .6-14.8 platelet count 73 10^3/MM^3 10*3/mm3 343-750 8436/01/21 leukocyte count, blood 4.9 10^3/MM^3 10*3/mm3 4.6-10.2 [...] .6-14.8 platelet count 38 recounted 10^3/mm^3 10*3/mm3 348-516 6981/10/08 leukocyte count, blood 2.9 10^3/MM^3 10*3/mm3 4.6-10.2 [...] 11 .6-14.8 platelet count 229 10^3/MM^3 10*3/mm3 274-735 9334/10/17 leukocyte count, blood 12.0 10^3/MM^3 10*3/mm3 4.6-10.2 [...] 11 .6-14.8 platelet count 232 10^3/MM^3 10*3/mm3 942-775 0175/10/01 leukocyte count, blood 8.3 10^3/MM^3 10*3/mm3 4.6-10.2 [...] 11 .6-14.8 platelet count 378 10^3/MM^3 10*3/mm3 636-511 4784/12/03 leukocyte count, blood 8.2 10^3/MM^3 10*3/mm3 4.6-10.2 [...] Diff/Morphology - Chemistry sodium, serum 141 mmol/L 474-566 0198/11/25 potassium, serum 3.9 mmol/L 3.5-5.2 chloride, serum [...] 0.50 mg/dL 0.00-1.00 sodium, serum 137 mmol/L 778-575 4621/11/12 potassium, serum 3.2 mmol/L 3.5-5.2 chloride, serum [...] 0.40 mg/dL 0.00-1.00 sodium, serum 140 mmol/L 607-289 9905/12/17 potassium, serum 3.3 mmol/L 3.5-5.2 chloride, serum [...] 0.40 mg/dL 0.00-1.00 sodium, serum 138 mmol/L 836-476 8331/12/24 potassium, serum 3.7 mmol/L 3.5-5.2 chloride, serum 100 mmol/L 98-107 carbon dioxide, venous blood 27.8 mmol/L 21.0-32 .0 blood glucose 87 mg/dL 65-110 urea nitrogen, blood 25 mg/dL 7- creatinine, serum 1.30 mg/dL 0.60-1.30 alanine aminotransferase (SGPT), serum 24 U/L aspartate aminotransferase (SGOT), serum 39 U/L 15-37 alkaline phosphatase, serum 256 U/L 50-136 calcium, serum 8.6 mg/dL 8.5-10.1 bilirubin, serum, total 0.50 mg/dL 0.00-1.00 sodium, serum 138 mmol/L 474-545 3734/11/05 potassium, serum 3.9 mmol/L 3.5-5.2 chloride, serum [...] 0.40 mg/dL 0.00-1.00 sodium, serum 135 mmol/L 890-403 7761/10/22 potassium, serum 3.0 mmol/L 3.5-5.2 chloride, serum [...] 0.50 mg/dL 0.00-1.00 sodium, serum 128 mmol/L 258-622 2211/10/29 potassium, serum 2.6 mmol/L 3.5-5.2 chloride, serum [...] 0.50 mg/dL 0.00-1.00 sodium, serum 141 mmol/L 461-611 1262/01/14 potassium, serum 3.9 mmol/L 3.5-5.2 chloride, serum [...] 11 .6-14.8 platelet count 22 10^3/MM^3 10*3/mm3 891-971 5518/10/22 leukocyte count, blood 14.7 10^3/MM^3 10*3/mm3 4.6-10.2 [...] 11 .6-14.8 platelet count 428 10^3/MM^3 10*3/mm3 834-903 1928/10/29 leukocyte count, blood 26.3 10^3/MM^3 10*3/mm3 4.6-10.2 [...] 11 .6-14.8 platelet count 268 10^3/MM^3 10*3/mm3 061-694 5376/11/12 leukocyte count, blood 12.1 10^3/MM^3 10*3/mm3 4.6-10.2 [...] 11 .6-14.8 platelet count 157 10^3/MM^3 10*3/mm3 904-608 0913/11/05 leukocyte count, blood 16.4 10^3/MM^3 10*3/mm3 4.6-10.2 [...] 11 .6-14.8 platelet count 215 10^3/MM^3 10*3/mm3 202-536 0248/12/24 leukocyte count, blood 14.0 10^3/MM^3 10*3/mm3 4.6-10.2 [...] 11 .6-14.8 platelet count 66 10^3/MM^3 10*3/mm3 446-335 9236/12/17 leukocyte count, blood 18.6 10^3/MM^3 10*3/mm3 4.6-10.2 [...] 11 .6-14.8 platelet count 75 10^3/MM^3 10*3/mm3 681-987 6095/11/25 leukocyte count, blood 21.1 10^3/MM^3 10*3/mm3 4.6-10.2 [...] 11 .6-14.8 platelet count 413 10^3/MM^3 10*3/mm3 673-240 3383/01/16 leukocyte count, blood 3.6 10^3/MM^3 10*3/mm3 4.6-10.2 [...] - Chem istry sodium, serum 141 mmol/L 884-590 2880/11/19 potassium, serum 3.9 mmol/L 3.5-5.2 chloride, serum [...] 0.50 mg/dL 0.00-1.00 sodium, serum 142 mmol/L 075-043 6725/12/10 potassium, serum 3.9 mmol/L 3.5-5.2 chloride, serum [...] Diff/Morphology - Chemistry sodium, serum 142 mmol/L 103-476 5395/12/31 potassium, serum 3.6 mmol/L 3.5-5.2 chloride, serum [...] 3.5-5.2 Encounters Code Encounter Date Provider Facility CPT-39681 Level 3 New Patient 01:46:11 LEGAL DOCUMENT ASSISTANT Hope landers MD PhD [facility] Procedures Code Procedure Name Date Entry Date Standard Desc ription CPT-14415 Venipuncture Draw Fee 13:51:18 CDT CPT-97387 Venipuncture Draw Fee 10:14:55 LEGAL DOCUMENT ASSISTANT CPT-75147 Venipuncture Draw Fee 13:39:45 LEGAL DOCUMENT ASSISTANT CPT-OV Office Visit 15:11:22 LEGAL DOCUMENT ASSISTANT CPT-90218 Venipuncture Draw Fee 09:20:49 LEGAL DOCUMENT ASSISTANT CPT-54521 Venipuncture Draw Fee 16:52:15 LEGAL DOCUMENT ASSISTANT CPT-49900 Venipuncture Draw Fee 10:37:24 LEGAL DOCUMENT ASSISTANT CPT-94317 Venipuncture Draw Fee 08:21:21 LEGAL DOCUMENT ASSISTANT CPT-07892 Venipuncture Draw Fee 08:30:20 LEGAL DOCUMENT ASSISTANT CPT-14393 Venipuncture Draw Fee 14:53:21 LEGAL DOCUMENT ASSISTANT CPT-78381 Venipuncture Draw Fee 09:40:56 LEGAL DOCUMENT ASSISTANT CPT-28471 Venipuncture Draw Fee 10:30:47 LEGAL DOCUMENT ASSISTANT CPT-10444 Venipuncture Draw Fee 10:46:17 LEGAL DOCUMENT ASSISTANT CPT-89037 Venipuncture Draw Fee 11:12:45 LEGAL DOCUMENT ASSISTANT CPT-07256 Venipuncture Draw Fee 09:53:33 LEGAL DOCUMENT ASSISTANT CPT-24119 Venipuncture Draw Fee 11:53:51 LEGAL DOCUMENT ASSISTANT CPT-86346 Venipuncture Draw Fee 10:33:50 LEGAL DOCUMENT ASSISTANT CPT-49252 Venipuncture Draw Fee 10:05:01 LEGAL DOCUMENT ASSISTANT CPT-24873 Venipuncture Draw Fee 14:32:52 LEGAL DOCUMENT ASSISTANT CPT-60965 Venipuncture Draw Fee 09:46:13 LEGAL DOCUMENT ASSISTANT CPT-30514 Venipuncture Draw Fee 11:34:27 LEGAL DOCUMENT ASSISTANT CPT-07557 Venipuncture Draw Fee 13:17:16 LEGAL DOCUMENT ASSISTANT CPT-86540 Venipuncture Draw Fee 12:05:39 CDT CPT-81542 Venipuncture Draw Fee 12:49:12 CDT CPT-23381 Venipuncture Draw Fee 12:37:18 CDT CPT-12267 Venipuncture Draw Fee 10:57:11 CDT CPT-68693 Venipuncture Draw Fee 13:47:40 CDT CPT-69430 Venipuncture Draw Fee 10:02:17 CDT CPT-04797 TB Tubersol 17:32:32 CDT CPT-OV Office Visit 16:21:53 CDT CPT-OV Office Visit 15:49:22 CDT CPT-OV Office Visit 17:16:31 CDT CPT-OV Office Visit 10:43:31 CDT
--- OUTSIDE RECORDS SUMMARY | 2019-02-09 13:20 | XMS REPORT | Clinical Summary ---
Author Author Renaldo, Florecita Munoz Organization [facility] Address Unknown Phone Unavailable Allergies, [...] cohn MD PhD UNSPECIFIED VENOUS INSUFFICIENCY ICD-459.81 [place] ctive Adam Yates MD ADENOCARCINOMA, ASCENDING COLON [...] shot every 6 months for osteoprosis DENOSUMAB 42086283879 Active Hope Benavidez MD PhD Active CALCIUM + D + K 750-500-40 MG-UNT-MCG TABS 1 tab by mouth tw ice daily CALCIUM-VITAMIN D-VITAMIN K 28414699447 Active Hope landers MD PhD Active DAILY VALUE MULTIVITAMIN TABS 1 tab by mouth twice daily MULTIPLE VITAMIN 90845415097 Active Hope Benavidez MD PhD Active FISH OIL 306 MG CAPS 1 tab by mouth three times daily OMEGA-3 FATTY ACIDS 07079904162 Active Hope Benavidez MD PhD Active LUTEIN 10 MG TABS 1 tab daily LUTEIN 89067465678 Act cash Hope Benavidez MD PhD Active FLORANEX PACK 1 pack three times daily, for bowel health LACTOBACILLUS 22476493278 Active Hope Benavidez MD PhD Active LOMOTIL 2.5-0.025 MG TABS 1 tab by mouth prn DIPHENOXYLATE-ATROPINE 16317967195 Active Hope Benavidez MD PhD Active TRIAMTERENE-HCTZ 37.5-25 MG TABS 1 tab by mouth daily TRIAMTERENE-HCTZ 27344357290 Active Hope Benavidez MD PhD Acti ve IRON 325 (65 FE) MG TABS 1 tab daily FERROUS SULF ATE 54951994396 Active Hope Benavidez MD PhD Active MAGNESIUM GLUCONATE 250 MG TABS 1 tab tid MAGN ESIUM GLUCONATE 44308801202 Active Adam Yates MD Active ATENOLOL 50 MG TABS 1/2 tab q other day m-w-f ATE NOLOL 15106330066 Active Adam Yates MD Active PROPRANOLOL HCL 80 MG TABS 1 tab tue. and thur. PROPRANOLOL HCL 01876657173 Active Adam Yates MD Active CYCLOBENZAPRINE HCL 10 MG TABS 1 tablet by mouth three times daily as needed for headaches CYCLOBENZAPRINE HCL 84916056437 No Longe r Active Adam Yates MD Active OMEPRAZOLE 20 MG CPDR 1 tablet by mouth daily for GERD OMEPRAZOLE 61437434871 No Longer Active Adam Yates MD A ctive ZOFRAN 8 MG TABS 1 tab by mouth every 12 hours prn 201 05/16/09 ONDANSETRON HCL 29191711105 No Longer Active Adam Yates MD Active PHENADOZ 25 MG SUPP 1 every 4 hrs. PRN PROMETHA ZINE HCL 80568349135 No Longer Active Adam Yates MD Active POTASSIUM CHLORIDE 20 MEQ PACK by mouth twice a day prn POTASSIUM CHLORIDE 82631639969 No Longer Active Adam Yates MD Active PROMETHAZINE HCL 25 MG TABS 1 Q. 4 hr. PRN PROM ETHAZINE HCL 50034424926 No Longer Active Adam Yates MD Active INNOPRAN XL 120 MG [id number] Take one by mouth daily 2 PROPRANOLOL HCL SR BEADS 56273894107 No Longer Active Adam Yates MD A ctive FLAGYL 500 MG TABS 1 pill by mouth three times daily, for diarrh ea METRONIDAZOLE 12752943406 No Longer Active Hope Benavidez MD PhD Active DYAZIDE 37.5-25 MG CAPS 1 qd TRIAMTERENE-HC TZ 30359288144 No Longer Active Hope Benavidez MD PhD Active PROZAC 20 MG CAPS 1 q d FLUOXETINE HCL 05770 679458 No Longer Active Hope Benavidez MD PhD Active SIMVASTATIN 40 MG TABS 1 qd SIMVASTATIN 004 07501555 No Longer Active Adam Yates MD Active MELOXICAM 15 MG TABS 1 qd MELOXICAM 5338491 9236 No Longer Active Adam Yates MD Active IMODIUM A-D 2 MG TABS 2 onset at diarrhea and prn. LOPERAMIDE HCL 94933419488 Active Hope Benavidez MD PhD Active EXCEDRIN EXTRA STRENGTH 250-250-65 MG TABS 1-2 q6h PRN headache 201 04/16/21 PVOQYSI-[id number]-ENRNHHVQ 43006385691 Active Hope Benavidez MD PhD Active FLAGYL 500 MG TABS 1 qid METRONIDAZOLE 43934 402200 No Longer Active Adam Yates MD Active LEVAQUIN 750 MG TABS 1 qd LEVOFLOXACIN 5486 3235751 No Longer Active Adam Yates MD Active ADULT ASPIRIN LOW STRENGTH 81 MG TBDP 1 qd A SPIRIN 09622091562 Active Hope Benavidez MD PhD Active LEVAQUIN 750 MG TABS 1 qd LEVAQUIN 750 MG T ABS 320360 LEVOFLOXACIN Inactive FLAGYL 500 MG TABS 1 qid FLAGYL 500 MG TABS 931040 METRONIDAZOLE Inactive MELOXICAM 15 MG TABS 1 qd MELOXICAM 15 MG T ABS 582473 MELOXICAM Inactive SIMVASTATIN 40 MG TABS 1 qd SIMVASTATIN 40 MG TABS 097417 SIMVASTATIN Inactive PROZAC 20 MG CAPS 1 q d PROZAC 20 MG CAPS 31 0385 FLUOXETINE HCL Inactive DYAZIDE 37.5-25 MG CAPS 1 qd DYAZIDE 37.5 -25 MG CAPS 084577 TRIAMTERENE-HCTZ Inactive INNOPRAN XL 120 MG [id number] Take one by mouth daily 2 INNOPRAN XL 120 MG [id number] PROPRANOLOL HCL SR BEADS Inactive PROMETHAZINE HCL 25 MG TABS 1 Q. 4 hr. PRN PROMETHAZINE HCL 25 MG TABS 950714 PROMETHAZINE HCL Inactive POTASSIUM CHLORIDE 20 MEQ PACK by mouth twice a day prn POTASSIUM CHLORIDE 20 MEQ PACK 906025 POTASSIUM CHLORIDE Inactive PHENADOZ 25 MG SUPP 1 every 4 hrs. PRN PHENADOZ 2 5 MG SUPP 014486 PROMETHAZINE HCL Inactive ZOFRAN 8 MG TABS 1 tab by mouth every 12 hours prn 201 05/16/09 ZOFRAN 8 MG TABS 457602 ONDANSETRON HCL Inactive OMEPRAZOLE 20 MG CPDR 1 tablet by mouth daily for GERD OMEPRAZOLE 20 MG CPDR 835205 OMEPRAZOLE Inactive CYCLOBENZAPRINE HCL 10 MG TABS 1 tablet by mouth three times daily as needed for headaches CYCLOBENZAPRINE HCL 10 MG TABS 952104 CYCLOBENZAPRINE HCL Inactive FLAGYL 500 MG TABS 1 pill by mouth three times daily, for diarrh ea FLAGYL 500 MG TABS 244630 METRONIDAZOLE Inactive Advance Directives Directive Description Start [...] - Chem istry sodium, serum 137 mmol/L 447-751 4347/11/01 potassium, serum 3.7 mmol/L 3.5-5.2 chloride, serum 100 mmol/L 98-107 carbon dioxide, venous blood 31.8 mmol/L 21.0-32 .0 blood glucose 98 mg/dL 65-110 calcium, serum 8.6 mg/dL 8.5-10.1 urea nitrogen, blood 23 mg/dL 7-18 creatinine, serum 1.50 mg/dL 0.60-1.30 sodium, serum 136 mmol/L 350-005 4882/05/02 potassium, serum 4.1 mmol/L 3.5-5.2 chloride, serum [...] 11 .6-14.8 platelet count 22 10^3/MM^3 10*3/mm3 866-503 0196/11/19 leukocyte count, blood 10.4 10^3/MM^3 10*3/mm3 4.6-10.2 [...] Verified By Repeat Analysis 10^3/mm ^3 10*3/mm3 795-058 3460/12/10 leukocyte count, blood 7.8 10^3/MM^3 10*3/mm3 4.6-10.2 [...] 11 .6-14.8 platelet count 102 10^3/MM^3 10*3/mm3 062-031 7224/01/08 leukocyte count, blood 9.0 10^3/MM^3 10*3/mm3 4.6-10.2 [...] Panel - Chemistry sodium, serum 140 mmol/L 308-134 7075/01/06 potassium, serum 3.4 mmol/L 3.5-5.2 chloride, serum [...] 0.40 mg/dL 0.00-1.00 sodium, serum 142 mmol/L 921-661 4997/01/03 potassium, serum 3.4 mmol/L 3.5-5.2 chloride, serum [...] 0.50 mg/dL 0.00-1.00 sodium, serum 139 mmol/L 888-508 6972/12/03 potassium, serum 3.7 mmol/L 3.5-5.2 chloride, serum [...] 0.40 mg/dL 0.00-1.00 sodium, serum 139 mmol/L 074-176 4218/10/17 potassium, serum 3.1 mmol/L 3.5-5.2 chloride, serum [...] 0.30 mg/dL 0.00-1.00 sodium, serum 139 mmol/L 159-401 8187/01/21 potassium, serum 3.4 mmol/L 3.5-5.2 chloride, serum [...] 0.40 mg/dL 0.00-1.00 sodium, serum 138 mmol/L 564-215 4747/01/28 potassium, serum 3.2 mmol/L 3.5-5.2 chloride, serum [...] 0.40 mg/dL 0.00-1.00 sodium, serum 136 mmol/L 321-008 2241/04/03 potassium, serum 3.7 mmol/L 3.5-5.2 chloride, serum [...] 0.40 mg/dL 0.00-1.00 sodium, serum 139 mmol/L 134-571 0405/02/18 potassium, serum 3.6 mmol/L 3.5-5.2 chloride, serum [...] 0.50 mg/dL 0.00-1.00 sodium, serum 140 mmol/L 659-528 8988/02/04 potassium, serum 3.6 mmol/L 3.5-5.2 chloride, serum [...] 0.70 mg/dL 0.00-1.00 sodium, serum 136 mmol/L 352-345 6190/02/11 potassium, serum 3.1 mmol/L 3.5-5.2 chloride, serum [...] 0.50 mg/dL 0.00-1.00 sodium, serum 138 mmol/L 439-084 6814/08/14 potassium, serum 4.0 mmol/L 3.5-5.2 chloride, serum [...] 11 .6-14.8 platelet count 193 10^3/MM^3 10*3/mm3 238-413 6963/02/18 leukocyte count, blood 4.0 10^3/MM^3 10*3/mm3 4.6-10.2 [...] 11 .6-14.8 platelet count 134 10^3/MM^3 10*3/mm3 000-639 4077/02/11 leukocyte count, blood 4.8 10^3/MM^3 10*3/mm3 4.6-10.2 [...] 11 .6-14.8 platelet count 102 10^3/MM^3 10*3/mm3 457-497 1357/04/03 leukocyte count, blood 5.6 10^3/MM^3 10*3/mm3 4.6-10.2 [...] 11 .6-14.8 platelet count 246 10^3/MM^3 10*3/mm3 025-923 2835/02/04 leukocyte count, blood 3.6 10^3/MM^3 10*3/mm3 4.6-10.2 [...] 11 .6-14.8 platelet count 70 10^3/MM^3 10*3/mm3 157-683 4635/01/28 leukocyte count, blood 4.2 10^3/MM^3 10*3/mm3 4.6-10.2 [...] 11 .6-14.8 platelet count 73 10^3/MM^3 10*3/mm3 334-157 0612/01/21 leukocyte count, blood 4.9 10^3/MM^3 10*3/mm3 4.6-10.2 [...] .6-14.8 platelet count 38 recounted 10^3/mm^3 10*3/mm3 404-458 3368/10/17 leukocyte count, blood 12.0 10^3/MM^3 10*3/mm3 4.6-10.2 [...] 11 .6-14.8 platelet count 232 10^3/MM^3 10*3/mm3 595-440 2645/12/03 leukocyte count, blood 8.2 10^3/MM^3 10*3/mm3 4.6-10.2 [...] 11 .6-14.8 platelet count 98 10^3/MM^3 10*3/mm3 314-440 5826/01/06 leukocyte count, blood 7.6 10^3/MM^3 10*3/mm3 4.6-10.2 [...] 11 .6-14.8 platelet count 132 10^3/MM^3 10*3/mm3 241-475 5248/01/03 leukocyte count, blood 8.1 10^3/MM^3 10*3/mm3 4.6-10.2 [...] Diff/Morphology - Chemistry sodium, serum 140 mmol/L 511-193 4630/12/17 potassium, serum 3.3 mmol/L 3.5-5.2 chloride, serum [...] 0.40 mg/dL 0.00-1.00 sodium, serum 138 mmol/L 660-274 5721/12/24 potassium, serum 3.7 mmol/L 3.5-5.2 chloride, serum [...] 0.50 mg/dL 0.00-1.00 sodium, serum 141 mmol/L 695-596 1368/11/25 potassium, serum 3.9 mmol/L 3.5-5.2 chloride, serum [...] 0.50 mg/dL 0.00-1.00 sodium, serum 137 mmol/L 804-908 4527/11/12 potassium, serum 3.2 mmol/L 3.5-5.2 chloride, serum [...] 0.40 mg/dL 0.00-1.00 sodium, serum 138 mmol/L 316-087 3052/11/05 potassium, serum 3.9 mmol/L 3.5-5.2 chloride, serum [...] 0.40 mg/dL 0.00-1.00 sodium, serum 135 mmol/L 336-118 7661/10/22 potassium, serum 3.0 mmol/L 3.5-5.2 chloride, serum [...] 0.50 mg/dL 0.00-1.00 sodium, serum 128 mmol/L 462-366 3105/10/29 potassium, serum 2.6 mmol/L 3.5-5.2 chloride, serum [...] 0.50 mg/dL 0.00-1.00 sodium, serum 141 mmol/L 718-567 5715/01/14 potassium, serum 3.9 mmol/L 3.5-5.2 chloride, serum [...] 11 .6-14.8 platelet count 428 10^3/MM^3 10*3/mm3 163-026 8750/11/05 leukocyte count, blood 16.4 10^3/MM^3 10*3/mm3 4.6-10.2 [...] 11 .6-14.8 platelet count 215 10^3/MM^3 10*3/mm3 143-598 0171/10/29 leukocyte count, blood 26.3 10^3/MM^3 10*3/mm3 4.6-10.2 [...] 11 .6-14.8 platelet count 268 10^3/MM^3 10*3/mm3 300-546 8194/11/12 leukocyte count, blood 12.1 10^3/MM^3 10*3/mm3 4.6-10.2 [...] 11 .6-14.8 platelet count 157 10^3/MM^3 10*3/mm3 978-977 5532/11/25 leukocyte count, blood 21.1 10^3/MM^3 10*3/mm3 4.6-10.2 [...] 11 .6-14.8 platelet count 46 10^3/MM^3 10*3/mm3 150-650 9757/12/17 leukocyte count, blood 18.6 10^3/MM^3 10*3/mm3 4.6-10.2 [...] 11 .6-14.8 platelet count 75 10^3/MM^3 10*3/mm3 071-305 1410/12/24 leukocyte count, blood 14.0 10^3/MM^3 10*3/mm3 4.6-10.2 [...] 11 .6-14.8 platelet count 66 10^3/MM^3 10*3/mm3 376-782 9698/01/14 leukocyte count, blood 6.2 10^3/MM^3 10*3/mm3 4.6-10.2 [...] - Chem istry sodium, serum 141 mmol/L 795-472 8693/11/19 potassium, serum 3.9 mmol/L 3.5-5.2 chloride, serum [...] 0.50 mg/dL 0.00-1.00 sodium, serum 142 mmol/L 876-371 9080/12/10 potassium, serum 3.9 mmol/L 3.5-5.2 chloride, serum [...] Diff/Morphology - Chemistry sodium, serum 142 mmol/L 234-428 7719/12/31 potassium, serum 3.6 mmol/L 3.5-5.2 chloride, serum [...] Panel - Chemistry cholesterol, serum 209 mg/dL 623-427 1469/09/11 triglyceride, serum, fasting 113 mg/dL 30-200 HDL cholesterol, serum 50 mg/dL 32-96 LDL cholesterol, serum 136 mg/dL 0-130 Encounters Code Encounter Date Provider Facility CPT-23029 Level 4 Est. Patient 20:04:51 CDT Hope cohn MD PhD [facility] CPT-03802 Level 3 New Patient 01:46:11 [employer] Hope landers MD PhD [facility] Procedures Code Procedure Name Date Entry Date Standard Desc ription CPT-G0008 Administration of Influenza Virus Vaccine 13:36:47 CDT CPT-92256 Fluzone High-Dose Intramuscular Suspension 11/15 13:36:47 CDT CPT-J0897 Prolia 60 mg 08:50:41 CDT CPT-29816 Abx/Therapy Injection 08:50:41 CDT CPT-53027 Bone Density 12:06:12 CDT CPT-81472 Bone Density 08:54:40 CDT CPT-OV Office Visit 15:37:02 CDT CPT-05712 Postop F/U Visit 15:47:49 CDT CPT-21015 Postop F/U Visit 15:21:02 CDT CPT-TCMH Transitional Care Mgmt-High 07:52:27 CDT 20 20/06/01 CPT-73466 Venipuncture Draw Fee 13:51:18 CDT CPT-27089 Venipuncture Draw Fee 10:14:55 [employer] CPT-48672 Venipuncture Draw Fee 13:39:45 [employer] CPT-OV Office Visit 15:11:22 [employer] CPT-72684 Venipuncture Draw Fee 09:20:49 [employer] CPT-74558 Venipuncture Draw Fee 16:52:15 [employer] CPT-85622 Venipuncture Draw Fee 10:37:24 [employer] CPT-47567 Venipuncture Draw Fee 08:21:21 [employer] CPT-73945 Venipuncture Draw Fee 08:30:20 [employer] CPT-34734 Venipuncture Draw Fee 14:53:21 [employer] CPT-32245 Venipuncture Draw Fee 09:40:56 [employer] CPT-71299 Venipuncture Draw Fee 10:30:47 [employer] CPT-93679 Venipuncture Draw Fee 10:46:17 [employer] CPT-48930 Venipuncture Draw Fee 11:12:45 [employer] CPT-07152 Venipuncture Draw Fee 09:53:33 [employer] CPT-91167 Venipuncture Draw Fee 11:53:51 [employer] CPT-25702 Venipuncture Draw Fee 10:33:50 [employer] CPT-15872 Venipuncture Draw Fee 10:05:01 [employer] CPT-05099 Venipuncture Draw Fee 14:32:52 [employer] CPT-94071 Venipuncture Draw Fee 09:46:13 [employer] CPT-86389 Venipuncture Draw Fee 11:34:27 [employer] CPT-71752 Venipuncture Draw Fee 13:17:16 [employer] CPT-39152 Venipuncture Draw Fee 12:05:39 CDT CPT-98290 Venipuncture Draw Fee 12:49:12 CDT CPT-81630 Venipuncture Draw Fee 12:37:18 CDT CPT-02065 Venipuncture Draw Fee 10:57:11 CDT CPT-35403 Venipuncture Draw Fee 13:47:40 CDT CPT-88027 Venipuncture Draw Fee 10:02:17 CDT CPT-34106 TB Tubersol 17:32:32 CDT CPT-OV Office Visit 16:21:53 CDT CPT-OV Office Visit 15:49:22 CDT CPT-OV Office Visit 17:16:31 CDT CPT-OV Office Visit 10:43:31 CDT
--- OUTSIDE RECORDS SUMMARY | 2019-02-09 13:21 | XMS REPORT | Clinical Summary ---
Author Author Renaldo, Florecita Munoz Organization [facility] Address Unknown Phone Unavailable Allergies, Adverse [...] mouth tw ice daily CALCIUM-VITAMIN D-VITAMIN K [id number] Active Hope landers MD PhD Active DAILY VALUE MULTIVITAMIN TABS 1 tab by mouth twice daily MULTIPLE VITAMIN 93806740436 Active Hope Benavidez MD PhD Active FISH OIL 306 MG CAPS 1 tab by mouth three times daily OMEGA-3 FATTY ACIDS 01643702766 Active Hope Benavidez MD PhD Active LUTEIN 10 MG TABS 1 tab daily LUTEIN [id number] Act cash Hope Benavidez MD PhD Active FLORANEX PACK 1 pack three times daily, for bowel health LACTOBACILLUS 73648648488 Active Hope Benavidez MD PhD Active LOMOTIL 2.5-0.025 MG TABS 1 tab by mouth prn DIPHENOXYLATE-ATROPINE 46819877327 Active Hope Benavidez MD PhD Active TRIAMTERENE-HCTZ 37.5-25 MG TABS 1 tab by mouth daily TRIAMTERENE-HCTZ 63674612853 Active Hope Benavidez MD PhD Acti ve IRON 325 (65 FE) MG TABS 1 tab daily FERROUS SULF ATE 03522768476 Active Hope Benavidez MD PhD Active MAGNESIUM GLUCONATE 250 MG TABS 1 tab tid MAGN ESIUM GLUCONATE 59774355735 Active Adam Yates MD Active ATENOLOL 50 MG TABS 1/2 tab q other day m-w-f ATE NOLOL 44884615041 Active Adam Yates MD Active PROPRANOLOL HCL 80 MG TABS 1 tab tue. and thur. PROPRANOLOL HCL 10556050009 Active Adam Yates MD Active CYCLOBENZAPRINE HCL 10 MG TABS 1 tablet by mouth three times daily as needed for headaches CYCLOBENZAPRINE HCL 96350630705 No Longe r Active Adam Yates MD Active OMEPRAZOLE 20 MG CPDR 1 tablet by mouth daily for GERD OMEPRAZOLE 61860826396 No Longer Active Adam Yates MD A ctive ZOFRAN 8 MG TABS 1 tab by mouth every 12 hours prn 201 05/16/09 ONDANSETRON HCL 48801844546 No Longer Active Adam Yates MD Active PHENADOZ 25 MG SUPP 1 every 4 hrs. PRN PROMETHA ZINE HCL 39499564340 No Longer Active Adam Yates MD Active POTASSIUM CHLORIDE 20 MEQ PACK by mouth twice a day prn POTASSIUM CHLORIDE 20808885299 No Longer Active Adam Yates MD Active PROMETHAZINE HCL 25 MG TABS 1 Q. 4 hr. PRN PROM ETHAZINE HCL 10914604612 No Longer Active Adam Yates MD Active INNOPRAN XL 120 MG [id number] Take one by mouth daily 2 PROPRANOLOL HCL SR BEADS 18955590341 No Longer Active Adam Yates MD A ctive FLAGYL 500 MG TABS 1 pill by mouth three times daily, for diarrh ea METRONIDAZOLE 34906549288 No Longer Active Hope Benavidez MD PhD Active DYAZIDE 37.5-25 MG CAPS 1 qd TRIAMTERENE-HC TZ 65874572674 No Longer Active Hope Benavidez MD PhD Active PROZAC 20 MG CAPS 1 q d FLUOXETINE HCL 73746 913553 No Longer Active Hope Benavidez MD PhD Active SIMVASTATIN 40 MG TABS 1 qd SIMVASTATIN 004 69261155 No Longer Active Adam Yaets MD Active MELOXICAM 15 MG TABS 1 qd MELOXICAM 0637373 9256 No Longer Active Adam Yates MD Active IMODIUM A-D 2 MG TABS 2 onset at diarrhea and prn. LOPERAMIDE HCL 71130911229 Active Hope Benavidez MD PhD Active EXCEDRIN EXTRA STRENGTH 250-250-65 MG TABS 1-2 q6h PRN headache 201 04/16/21 [id number] 15170053761 Active Hope Benavidez MD PhD Active FLAGYL 500 MG TABS 1 qid METRONIDAZOLE 31205 530290 No Longer Active Adam Yates MD Active LEVAQUIN 750 MG TABS 1 qd LEVOFLOXACIN 5486 8161542 No Longer Active Adam Yates MD Active ADULT ASPIRIN LOW STRENGTH 81 MG TBDP 1 qd A SPIRIN 10216017361 Active Hope Benavidez MD PhD Active LEVAQUIN 750 MG TABS 1 qd LEVAQUIN 750 MG T ABS 802777 LEVOFLOXACIN Inactive FLAGYL 500 MG TABS 1 qid FLAGYL 500 MG TABS 034854 METRONIDAZOLE Inactive MELOXICAM 15 MG TABS 1 qd MELOXICAM 15 MG T ABS 756319 MELOXICAM Inactive SIMVASTATIN 40 MG TABS 1 qd SIMVASTATIN 40 MG TABS 184151 SIMVASTATIN Inactive PROZAC 20 MG CAPS 1 q d PROZAC 20 MG CAPS 31 0385 FLUOXETINE HCL Inactive DYAZIDE 37.5-25 MG CAPS 1 qd DYAZIDE 37.5 -25 MG CAPS 463670 TRIAMTERENE-HCTZ Inactive INNOPRAN XL 120 MG [id number] Take one by mouth daily 2 INNOPRAN XL 120 MG [id number] PROPRANOLOL HCL SR BEADS Inactive PROMETHAZINE HCL 25 MG TABS 1 Q. 4 hr. PRN PROMETHAZINE HCL 25 MG TABS 215087 PROMETHAZINE HCL Inactive POTASSIUM CHLORIDE 20 MEQ PACK by mouth twice a day prn POTASSIUM CHLORIDE 20 MEQ PACK 410700 POTASSIUM CHLORIDE Inactive PHENADOZ 25 MG SUPP 1 every 4 hrs. PRN PHENADOZ 2 5 MG SUPP 628687 PROMETHAZINE HCL Inactive ZOFRAN 8 MG TABS 1 tab by mouth every 12 hours prn 201 05/16/09 ZOFRAN 8 MG TABS 794071 ONDANSETRON HCL Inactive OMEPRAZOLE 20 MG CPDR 1 tablet by mouth daily for GERD OMEPRAZOLE 20 MG CPDR 519156 OMEPRAZOLE Inactive CYCLOBENZAPRINE HCL 10 MG TABS 1 tablet by mouth three times daily as needed for headaches CYCLOBENZAPRINE HCL 10 MG TABS 034254 CYCLOBENZAPRINE HCL Inactive FLAGYL 500 MG TABS 1 pill by mouth three times daily, for diarrh ea FLAGYL 500 MG TABS 615210 METRONIDAZOLE Inactive Advance Directives Directive Description Start [...] - Chem istry sodium, serum 136 mmol/L 313-418 2244/05/02 potassium, serum 4.1 mmol/L 3.5-5.2 chloride, serum 99 mmol/L 98-107 carbon dioxide, venous blood 30.7 mmol/L 21.0-32 .0 blood glucose 79 mg/dL 65-110 calcium, serum 8.7 mg/dL 8.5-10.1 urea nitrogen, blood 11 mg/dL 7-18 creatinine, serum 1.10 mg/dL 0.60-1.30 sodium, serum 137 mmol/L 320-466 8512/11/01 potassium, serum 3.7 mmol/L 3.5-5.2 chloride, serum 100 mmol/L 98-107 carbon dioxide, venous blood 31.8 mmol/L 21.0-32 .0 blood glucose 98 mg/dL 65-110 calcium, serum 8.6 mg/dL 8.5-10.1 urea nitrogen, blood 23 mg/dL 7-18 creatinine, serum 1.50 mg/dL 0.60-1.30 Lab Report: [facility] - Chemistry sodium, serum 141 mmol/L potassium, serum 4.2 mmol/L blood glucose 66 mg/dL creatinine, serum 1.16 mg/dL Lab Report: CBC W/ DIFF, [facility], [facility], AN AEROBIC CX - Chemistry sodium, serum 137 mmol/L potassium, serum 3.8 mmol/L blood glucose 79 mg/dL creatinine, serum 1.02 mg/dL magnesium, serum 1.2 mg/dL Lab Report: CBC W/ DIFF, [facility] - Hematology leukocyte count, [...] 11 .6-14.8 platelet count 133 10^3/MM^3 10*3/mm3 313-799 1477/01/17 leukocyte count, blood 3.1 10^3/MM^3 10*3/mm3 4.6-10.2 [...] 11 .6-14.8 platelet count 22 10^3/MM^3 10*3/mm3 297-289 7963/11/19 leukocyte count, blood 10.4 10^3/MM^3 10*3/mm3 4.6-10.2 [...] Verified By Repeat Analysis 10^3/mm ^3 10*3/mm3 314-892 2874/12/10 leukocyte count, blood 7.8 10^3/MM^3 10*3/mm3 4.6-10.2 [...] Panel - Chemistry sodium, serum 139 mmol/L 989-831 8993/12/03 potassium, serum 3.7 mmol/L 3.5-5.2 chloride, serum [...] 0.40 mg/dL 0.00-1.00 sodium, serum 142 mmol/L 847-330 4907/01/03 potassium, serum 3.4 mmol/L 3.5-5.2 chloride, serum [...] 0.50 mg/dL 0.00-1.00 sodium, serum 137 mmol/L 845-083 7474/10/01 potassium, serum 3.5 mmol/L 3.5-5.2 chloride, serum [...] 0.60 mg/dL 0.00-1.00 sodium, serum 136 mmol/L 741-883 9859/10/08 potassium, serum 3.1 mmol/L 3.5-5.2 chloride, serum [...] 0.60 mg/dL 0.00-1.00 sodium, serum 139 mmol/L 257-386 2230/10/17 potassium, serum 3.1 mmol/L 3.5-5.2 chloride, serum [...] 0.30 mg/dL 0.00-1.00 sodium, serum 140 mmol/L 705-705 9055/01/06 potassium, serum 3.4 mmol/L 3.5-5.2 chloride, serum [...] 0.40 mg/dL 0.00-1.00 sodium, serum 139 mmol/L 597-484 9866/01/21 potassium, serum 3.4 mmol/L 3.5-5.2 chloride, serum [...] 0.40 mg/dL 0.00-1.00 sodium, serum 138 mmol/L 527-801 9378/01/28 potassium, serum 3.2 mmol/L 3.5-5.2 chloride, serum [...] 0.40 mg/dL 0.00-1.00 sodium, serum 140 mmol/L 792-631 1769/02/04 potassium, serum 3.6 mmol/L 3.5-5.2 chloride, serum [...] 0.70 mg/dL 0.00-1.00 sodium, serum 136 mmol/L 484-666 6637/02/11 potassium, serum 3.1 mmol/L 3.5-5.2 chloride, serum [...] 0.50 mg/dL 0.00-1.00 sodium, serum 136 mmol/L 562-758 1331/04/03 potassium, serum 3.7 mmol/L 3.5-5.2 chloride, serum [...] 0.40 mg/dL 0.00-1.00 sodium, serum 139 mmol/L 452-738 8924/02/18 potassium, serum 3.6 mmol/L 3.5-5.2 chloride, serum [...] 0.50 mg/dL 0.00-1.00 sodium, serum 138 mmol/L 118-145 7461/08/14 potassium, serum 4.0 mmol/L 3.5-5.2 chloride, serum [...] 11 .6-14.8 platelet count 193 10^3/MM^3 10*3/mm3 268-052 9900/04/03 leukocyte count, blood 5.6 10^3/MM^3 10*3/mm3 4.6-10.2 [...] 11 .6-14.8 platelet count 246 10^3/MM^3 10*3/mm3 257-467 1850/02/18 leukocyte count, blood 4.0 10^3/MM^3 10*3/mm3 4.6-10.2 [...] 11 .6-14.8 platelet count 134 10^3/MM^3 10*3/mm3 761-123 9757/02/11 leukocyte count, blood 4.8 10^3/MM^3 10*3/mm3 4.6-10.2 [...] 11 .6-14.8 platelet count 102 10^3/MM^3 10*3/mm3 634-897 6867/02/04 leukocyte count, blood 3.6 10^3/MM^3 10*3/mm3 4.6-10.2 [...] 11 .6-14.8 platelet count 70 10^3/MM^3 10*3/mm3 519-388 9226/01/28 leukocyte count, blood 4.2 10^3/MM^3 10*3/mm3 4.6-10.2 [...] 11 .6-14.8 platelet count 73 10^3/MM^3 10*3/mm3 714-272 3368/01/03 leukocyte count, blood 8.1 10^3/MM^3 10*3/mm3 4.6-10.2 [...] 11 .6-14.8 platelet count 96 10^3/MM^3 10*3/mm3 460-857 9908/01/21 leukocyte count, blood 4.9 10^3/MM^3 10*3/mm3 4.6-10.2 [...] .6-14.8 platelet count 38 recounted 10^3/mm^3 10*3/mm3 886-900 3088/10/17 neutrophils as percent of blood leukocytes 64.3 % 42.2-75.2 monocytes as percent of blood leukocytes 10.4 % 1.7-9.3 lymphocytes as percent of blood leukocytes 21.3 % 20.5-51.1 hemoglobin, blood 12.0 g/dL 12.0-16.0 erythrocyte (RBC) count 4.18 10^6/MM^3 10*6/mm3 4.04-5.4 8 monocytes as percent of blood leukocytes 14.4 % 1.7-9.3 neutrophils as percent of blood leukocytes 57.9 % 42.2-75.2 leukocyte count, blood 2.9 10^3/MM^3 10*3/mm3 4.6-10.2 leukocyte count, blood 8.3 10^3/MM^3 10*3/mm3 4.6-10.2 [...] 11 .6-14.8 platelet count 378 10^3/MM^3 10*3/mm3 056-080 3694/10/08 lymphocytes as percent of blood leukocytes 25.6 [...] 11 .6-14.8 platelet count 229 10^3/MM^3 10*3/mm3 846-155 9669/10/17 leukocyte count, blood 12.0 10^3/MM^3 10*3/mm3 4.6-10.2 hematocrit, blood 36.2 % 36.0-46.0 mean corpuscular volume, RBC 87 fL 80-97 mean corpuscular hemoglobin, RBC 28.7 pg 27. 0-31.2 mean corpuscular hemoglobin concentration, RBC 33.1 G/DL % 31.8-35.4 red blood cell distribution width 16.3 % 11 .6-14.8 platelet count 232 10^3/MM^3 10*3/mm3 597-605 4603/01/06 leukocyte count, blood 7.6 10^3/MM^3 10*3/mm3 4.6-10.2 [...] 11 .6-14.8 platelet count 132 10^3/MM^3 10*3/mm3 032-060 6243/12/03 leukocyte count, blood 8.2 10^3/MM^3 10*3/mm3 4.6-10.2 [...] Diff/Morphology - Chemistry sodium, serum 141 mmol/L 169-029 2342/11/25 potassium, serum 3.9 mmol/L 3.5-5.2 chloride, serum [...] 0.50 mg/dL 0.00-1.00 sodium, serum 137 mmol/L 505-910 9298/11/12 potassium, serum 3.2 mmol/L 3.5-5.2 chloride, serum [...] 0.40 mg/dL 0.00-1.00 sodium, serum 140 mmol/L 484-803 5624/12/17 potassium, serum 3.3 mmol/L 3.5-5.2 chloride, serum [...] 0.40 mg/dL 0.00-1.00 sodium, serum 138 mmol/L 533-736 4625/12/24 potassium, serum 3.7 mmol/L 3.5-5.2 chloride, serum [...] 0.50 mg/dL 0.00-1.00 sodium, serum 128 mmol/L 984-389 6892/10/29 potassium, serum 2.6 mmol/L 3.5-5.2 chloride, serum [...] 0.50 mg/dL 0.00-1.00 sodium, serum 138 mmol/L 866-614 1521/11/05 potassium, serum 3.9 mmol/L 3.5-5.2 chloride, serum [...] 0.40 mg/dL 0.00-1.00 sodium, serum 135 mmol/L 113-987 5681/10/22 potassium, serum 3.0 mmol/L 3.5-5.2 chloride, serum 93 mmol/L 98-107 carbon dioxide, venous blood 31.6 mmol/L 21.0-32 .0 blood glucose 142 mg/dL 65-110 urea nitrogen, blood 15 mg/dL 7- creatinine, serum 1.80 mg/dL 0.60-1.30 alanine aminotransferase (SGPT), serum 45 U/L aspartate aminotransferase (SGOT), serum 48 U/L 15-37 alkaline phosphatase, serum 136 U/L 50-136 calcium, serum 8.3 mg/dL 8.5-10.1 bilirubin, serum, total 0.50 mg/dL 0.00-1.00 sodium, serum 141 mmol/L 828-945 7658/01/14 potassium, serum 3.9 mmol/L 3.5-5.2 chloride, serum [...] 11 .6-14.8 platelet count 22 10^3/MM^3 10*3/mm3 926-773 0393/10/29 leukocyte count, blood 26.3 10^3/MM^3 10*3/mm3 4.6-10.2 [...] 11 .6-14.8 platelet count 268 10^3/MM^3 10*3/mm3 495-763 2767/10/22 leukocyte count, blood 14.7 10^3/MM^3 10*3/mm3 4.6-10.2 hematocrit, blood 35.9 % 36.0-46.0 mean corpuscular volume, RBC 87 fL 80-97 mean corpuscular hemoglobin, RBC 28.4 pg 27. 0-31.2 mean corpuscular hemoglobin concentration, RBC 32.5 G/DL % 31.8-35.4 red blood cell distribution width 17.5 % 11 .6-14.8 platelet count 428 10^3/MM^3 10*3/mm3 295-456 0388/11/12 leukocyte count, blood 12.1 10^3/MM^3 10*3/mm3 4.6-10.2 [...] 11 .6-14.8 platelet count 157 10^3/MM^3 10*3/mm3 658-304 5174/10/22 neutrophils as percent of blood leukocytes 80.9 % 42.2-75.2 monocytes as percent of blood leukocytes 7.1 % 1.7-9.3 lymphocytes as percent of blood leukocytes 10.4 % 20.5-51.1 erythrocyte (RBC) count 4.11 10^6/MM^3 10*6/mm3 4.04-5.4 8 hemoglobin, blood 11.7 g/dL 12.0-16.0 leukocyte count, blood 16.4 10^3/MM^3 10*3/mm3 4.6-10.2 [...] 11 .6-14.8 platelet count 215 10^3/MM^3 10*3/mm3 089-674 2206/12/24 leukocyte count, blood 14.0 10^3/MM^3 10*3/mm3 4.6-10.2 [...] 11 .6-14.8 platelet count 66 10^3/MM^3 10*3/mm3 103-252 8216/11/25 leukocyte count, blood 21.1 10^3/MM^3 10*3/mm3 4.6-10.2 [...] 11 .6-14.8 platelet count 46 10^3/MM^3 10*3/mm3 325-227 3782/12/17 leukocyte count, blood 18.6 10^3/MM^3 10*3/mm3 4.6-10.2 [...] carcinoembryonic antigen <0.5 ng/mL ng/mL carcinoembryonic antigen 0.9 ng/mL carcinoembryonic antigen <0.5 ng/mL ng/mL Lab Report: cmp - Chemistry sodium, serum 142 mmol/L potassium, serum 4.0 mmol/L blood glucose 115 mg/dL creatinine, serum 1.24 mg/dL Lab Report: Comp. Metabolic Panel - Chem istry sodium, serum 141 mmol/L 996-626 5527/11/19 potassium, serum 3.9 mmol/L 3.5-5.2 chloride, serum [...] 0.50 mg/dL 0.00-1.00 sodium, serum 142 mmol/L 068-718 7513/12/10 potassium, serum 3.9 mmol/L 3.5-5.2 chloride, serum [...] Diff/Morphology - Chemistry sodium, serum 142 mmol/L 885-247 0424/12/31 potassium, serum 3.6 mmol/L 3.5-5.2 chloride, serum [...] Panel - Chemistry cholesterol, serum 209 mg/dL 882-695 8534/09/11 triglyceride, serum, fasting 113 mg/dL 30-200 HDL cholesterol, serum 50 mg/dL 32-96 LDL cholesterol, serum 136 mg/dL 0-130 Encounters Code Encounter Date Provider Facility CPT-09920 Level 4 Est. Patient 20:04:51 CDT Hope cohn MD PhD [facility] CPT-27024 Level 3 New Patient 01:46:11 [employer] Hope landers MD PhD [facility] Procedures Code Procedure Name Date Entry Date Standard Desc ription CPT-30738 Bone Density 08:54:40 CDT CPT-OV Office Visit 15:37:02 CDT CPT-09678 Postop F/U Visit 15:47:49 CDT CPT-39249 Postop F/U Visit 15:21:02 CDT CPT-TCMH Transitional Care Mgmt-High 07:52:27 CDT 20 20/06/01 CPT-13598 Venipuncture Draw Fee 13:51:18 CDT CPT-67527 Venipuncture Draw Fee 10:14:55 [employer]ICIAN CPT-77137 Venipuncture Draw Fee 13:39:45 [employer] TECHNICIAN CPT-OV Office Visit 15:11:22 [employer] TECHNICIAN CPT-43604 Venipuncture Draw Fee 09:20:49 [employer] TECHNICIAN CPT-18247 Venipuncture Draw Fee 16:52:15 [employer] TECHNICIAN CPT-64448 Venipuncture Draw Fee 10:37:24 [employer] TECHNICIAN CPT-60729 Venipuncture Draw Fee 08:21:21 [employer] TECHNICIAN CPT-26338 Venipuncture Draw Fee 08:30:20 [employer] TECHNICIAN CPT-38014 Venipuncture Draw Fee 14:53:21 [employer] TECHNICIAN CPT-26623 Venipuncture Draw Fee 09:40:56 [employer] TECHNICIAN CPT-60651 Venipuncture Draw Fee 10:30:47 [employer] TECHNICIAN CPT-01132 Venipuncture Draw Fee 10:46:17 [employer] TECHNICIAN CPT-19257 Venipuncture Draw Fee 11:12:45 [employer] TECHNICIAN CPT-45072 Venipuncture Draw Fee 09:53:33 [employer] TECHNICIAN CPT-12590 Venipuncture Draw Fee 11:53:51 [employer] TECHNICIAN CPT-37838 Venipuncture Draw Fee 10:33:50 [employer] TECHNICIAN CPT-25745 Venipuncture Draw Fee 10:05:01 [employer] TECHNICIAN CPT-55269 Venipuncture Draw Fee 14:32:52 [employer] TECHNICIAN CPT-85773 Venipuncture Draw Fee 09:46:13 [employer] TECHNICIAN CPT-64613 Venipuncture Draw Fee 11:34:27 [employer] TECHNICIAN CPT-24638 Venipuncture Draw Fee 13:17:16 [employer] TECHNICIAN CPT-70619 Venipuncture Draw Fee 12:05:39 CDT CPT-03867 Venipuncture Draw Fee 12:49:12 CDT CPT-96312 Venipuncture Draw Fee 12:37:18 CDT CPT-42524 Venipuncture Draw Fee 10:57:11 CDT CPT-54889 Venipuncture Draw Fee 13:47:40 CDT CPT-65321 Venipuncture Draw Fee 10:02:17 CDT CPT-21150 TB Tubersol 17:32:32 CDT CPT-OV Office Visit 16:21:53 CDT CPT-OV Office Visit 15:49:22 CDT CPT-OV Office Visit 17:16:31 CDT CPT-OV Office Visit 10:43:31 CDT
--- OUTSIDE RECORDS SUMMARY | 2019-02-09 13:21 | XMS REPORT | Clinical Summary ---
Author Author Renaldo, Florecita Munoz Organization [facility] Address Unknown Phone Unavailable Allergies, Adverse Reactions, [...] ABDOMINAL PAIN, RIGHT LOWER QUADRANT 789.03 Resolved Knia Joshua APRN Abdominal pain, right lower quadrant [...] cohn MD PhD UNSPECIFIED VENOUS INSUFFICIENCY ICD-459.81 [place] [facility] Adam Yates MD ADENOCARCINOMA, ASCENDING COLON [...] 1 injection every 2 weeks 01/09 CYANOCOBALAMIN 69410043632 Active Laura Elder Active VITAMIN D3 4000 IU 1 tab 3 times daily VITAMIN D3 400 0 IU Active Hope Benavidez MD PhD Active BACTRIM DS 800-160 MG TABS 1 pill by mouth twice daily, for UTI SULFAMETHOXAZOLE-TRIMETHOPRIM 19794808931 No Longer Active Lisa Benavidez MD PhD Active PROLIA 60 MG/ML SOLN 1 shot every 6 months for osteoprosis DENOSUMAB 24245505944 Active Hope Benavidez MD PhD Active CALCIUM + D + K 750-500-40 MG-UNT-MCG TABS 1 tab by mouth tw ice daily CALCIUM-VITAMIN D-VITAMIN K 03327177351 Active Hope landers MD PhD Active DAILY VALUE MULTIVITAMIN TABS 1 tab by mouth twice daily MULTIPLE VITAMIN 22205354671 Active Hope Benavidez MD PhD Active FISH OIL 306 MG CAPS 1 tab by mouth three times daily OMEGA-3 FATTY ACIDS 66242465305 Active Hope Benavidez MD PhD Active LUTEIN 10 MG TABS 1 tab daily LUTEIN 17819467641 Act cash Hope Benavidez MD PhD Active FLORANEX PACK 1 pack three times daily, for bowel health LACTOBACILLUS 16253177108 Active Hope Benavidez MD PhD Active LOMOTIL 2.5-0.025 MG TABS 1 tab by mouth prn DIPHENOXYLATE-ATROPINE 19646190195 Active Hope Benavidez MD PhD Active TRIAMTERENE-HCTZ 37.5-25 MG TABS 1 tab by mouth daily TRIAMTERENE-HCTZ 64771735552 Active Hope Benavidez MD PhD Acti ve IRON 325 (65 FE) MG TABS 1 tab daily FERROUS SULF ATE 27099979237 Active Hope Benavidez MD PhD Active MAGNESIUM GLUCONATE 250 MG TABS 1 tab tid MAGN ESIUM GLUCONATE 74318558987 Active Adam Yates MD Active ATENOLOL 50 MG TABS 1/2 tab q other day m-w-f ATE NOLOL 18374255852 Active Hope Benavidez MD PhD Active PROPRANOLOL HCL 80 MG TABS 1 tab tue. and thur. PROPRANOLOL HCL 98211841924 Active Adam Yates MD Active CYCLOBENZAPRINE HCL 10 MG TABS 1 tablet by mouth three times daily as needed for headaches CYCLOBENZAPRINE HCL 80215825817 No Longe r Active Adam Yates MD Active OMEPRAZOLE 20 MG CPDR 1 tablet by mouth daily for GERD OMEPRAZOLE 22162423711 No Longer Active Adam Yates MD A ctive ZOFRAN 8 MG TABS 1 tab by mouth every 12 hours prn 201 05/16/09 ONDANSETRON HCL 05853887079 No Longer Active Adam Yates MD Active PHENADOZ 25 MG SUPP 1 every 4 hrs. PRN PROMETHA ZINE HCL 25426534684 No Longer Active Adam Yates MD Active POTASSIUM CHLORIDE 20 MEQ PACK by mouth twice a day prn POTASSIUM CHLORIDE 38570495950 No Longer Active Adam Yates MD Active PROMETHAZINE HCL 25 MG TABS 1 Q. 4 hr. PRN PROM ETHAZINE HCL 38195337007 No Longer Active Adam Yates MD Active INNOPRAN XL 120 MG [id number] Take one by mouth daily 2 PROPRANOLOL HCL SR BEADS 39209809097 No Longer Active Adam Yates MD A ctive FLAGYL 500 MG TABS 1 pill by mouth three times daily, for diarrh ea METRONIDAZOLE 08351892206 No Longer Active Hope Benavidez MD PhD Active DYAZIDE 37.5-25 MG CAPS 1 qd TRIAMTERENE-HC TZ 68206054850 No Longer Active Hope Benavidez MD PhD Active PROZAC 20 MG CAPS 1 q d FLUOXETINE HCL 93553 120693 No Longer Active Hope Benavidez MD PhD Active SIMVASTATIN 40 MG TABS 1 qd SIMVASTATIN 004 25711744 No Longer Active Adam Yates MD Active MELOXICAM 15 MG TABS 1 qd MELOXICAM 4200774 4521 No Longer Active Adam Yates MD Active IMODIUM A-D 2 MG TABS 2 onset at diarrhea and prn. LOPERAMIDE HCL 78348925071 Active Hope Benavidez MD PhD Active EXCEDRIN EXTRA STRENGTH 250-250-65 MG TABS 1-2 q6h PRN headache 201 04/16/21 [id number] 02067567800 Active Hope Benavidez MD PhD Active FLAGYL 500 MG TABS 1 qid METRONIDAZOLE 17457 317333 No Longer Active Adam Yates MD Active LEVAQUIN 750 MG TABS 1 qd LEVOFLOXACIN 5486 9863729 No Longer Active Adam Yates MD Active ADULT ASPIRIN LOW STRENGTH 81 MG TBDP 1 qd A SPIRIN 11329559335 Active Hope Benavidez MD PhD Active LEVAQUIN 750 MG TABS 1 qd LEVAQUIN 750 MG T ABS 625769 LEVOFLOXACIN Inactive FLAGYL 500 MG TABS 1 qid FLAGYL 500 MG TABS 506585 METRONIDAZOLE Inactive MELOXICAM 15 MG TABS 1 qd MELOXICAM 15 MG T ABS 403528 MELOXICAM Inactive SIMVASTATIN 40 MG TABS 1 qd SIMVASTATIN 40 MG TABS 072069 SIMVASTATIN Inactive PROZAC 20 MG CAPS 1 q d PROZAC 20 MG CAPS 31 0385 FLUOXETINE HCL Inactive DYAZIDE 37.5-25 MG CAPS 1 qd DYAZIDE 37.5 -25 MG CAPS 987455 TRIAMTERENE-HCTZ Inactive INNOPRAN XL 120 MG [id number] Take one by mouth daily 2 INNOPRAN XL 120 MG [id number] PROPRANOLOL HCL SR BEADS Inactive PROMETHAZINE HCL 25 MG TABS 1 Q. 4 hr. PRN PROMETHAZINE HCL 25 MG TABS 182699 PROMETHAZINE HCL Inactive POTASSIUM CHLORIDE 20 MEQ PACK by mouth twice a day prn POTASSIUM CHLORIDE 20 MEQ PACK 538380 POTASSIUM CHLORIDE Inactive PHENADOZ 25 MG SUPP 1 every 4 hrs. PRN PHENADOZ 2 5 MG SUPP 431557 PROMETHAZINE HCL Inactive ZOFRAN 8 MG TABS 1 tab by mouth every 12 hours prn 201 05/16/09 ZOFRAN 8 MG TABS 949982 ONDANSETRON HCL Inactive OMEPRAZOLE 20 MG CPDR 1 tablet by mouth daily for GERD OMEPRAZOLE 20 MG CPDR 646528 OMEPRAZOLE Inactive CYCLOBENZAPRINE HCL 10 MG TABS 1 tablet by mouth three times daily as needed for headaches CYCLOBENZAPRINE HCL 10 MG TABS 553609 CYCLOBENZAPRINE HCL Inactive FLAGYL 500 MG TABS 1 pill by mouth three times daily, for diarrh ea FLAGYL 500 MG TABS 377669 METRONIDAZOLE Inactive BACTRIM DS 800-160 MG TABS [...] Range Description Chart Maintenance: labs added to [employer] et - Chemistry magnesium, serum 2.0 mg/dL Chart Maintenance: Outside labs entered on [facility] - Chemistry sodium, serum 139 mmol/L potassium, serum 3.9 mmol/L blood glucose 85 mg/dL creatinine, serum 1.26 mg/dL aspartate aminotransferase (SGOT), serum 33 U/L alanine aminotransferase (SGPT), serum 44 U/L alkaline phosphatase, serum 127 U/L Chart Maintenance: Outside labs entered on [facility] - Hematology leukocyte count, blood 4.6 10*3/mm3 hemoglobin, blood 13.6 g/dL platelet count 162 10*3/mm3 Lab Report: Basic Metabolic Panel - Chem istry sodium, serum 136 mmol/L 508-519 0457/05/02 potassium, serum 4.1 mmol/L 3.5-5.2 chloride, serum 99 mmol/L 98-107 carbon dioxide, venous blood 30.7 mmol/L 21.0-32 .0 blood glucose 79 mg/dL 65-110 calcium, serum 8.7 mg/dL 8.5-10.1 urea nitrogen, blood 11 mg/dL 7-18 creatinine, serum 1.10 mg/dL 0.60-1.30 Lab Report: [facility] - Chemistry sodium, serum 141 mmol/L potassium, serum 4.2 mmol/L blood glucose 66 mg/dL creatinine, serum 1.16 mg/dL Lab Report: CBC W/ DIFF, [facility] - Chemistry sodium, serum 137 mmol/L potassium, serum 3.8 mmol/L blood glucose 79 mg/dL creatinine, serum 1.02 mg/dL magnesium, serum 1.2 mg/dL Lab Report: CBC W/ DIFF, [facility] - Hematology leukocyte count, blood 8.7 10*3/mm3 hemoglobin, blood 10.8 g/dL platelet count 319 10*3/mm3 Lab Report: CBC W/DIFF, Comp. Metabolic Panel - Chemistry sodium, serum 138 mmol/L 482-569 7718/08/14 potassium, serum 4.0 mmol/L 3.5-5.2 chloride, serum [...] 0.40 mg/dL 0.00-1.00 sodium, serum 139 mmol/L 104-445 6598/02/18 potassium, serum 3.6 mmol/L 3.5-5.2 chloride, serum [...] 0.50 mg/dL 0.00-1.00 sodium, serum 138 mmol/L 900-458 3897/01/28 potassium, serum 3.2 mmol/L 3.5-5.2 sodium, serum 136 mmol/L 405-619 0584/04/03 potassium, serum 3.7 mmol/L 3.5-5.2 chloride, serum [...] 0.40 mg/dL 0.00-1.00 sodium, serum 139 mmol/L 122-938 3923/01/21 potassium, serum 3.4 mmol/L 3.5-5.2 chloride, serum [...] 0.40 mg/dL 0.00-1.00 sodium, serum 140 mmol/L 759-617 5488/02/04 potassium, serum 3.6 mmol/L 3.5-5.2 chloride, serum [...] 0.70 mg/dL 0.00-1.00 sodium, serum 136 mmol/L 141-070 7002/02/11 potassium, serum 3.1 mmol/L 3.5-5.2 chloride, serum [...] 11 .6-14.8 platelet count 134 10^3/MM^3 10*3/mm3 918-040 2854/02/11 leukocyte count, blood 4.8 10^3/MM^3 10*3/mm3 4.6-10.2 [...] 11 .6-14.8 platelet count 102 10^3/MM^3 10*3/mm3 121-556 1054/02/04 leukocyte count, blood 3.6 10^3/MM^3 10*3/mm3 4.6-10.2 [...] 11 .6-14.8 platelet count 70 10^3/MM^3 10*3/mm3 806-490 8753/01/28 leukocyte count, blood 4.2 10^3/MM^3 10*3/mm3 4.6-10.2 [...] 11 .6-14.8 platelet count 73 10^3/MM^3 10*3/mm3 525-996 4075/01/21 erythrocyte (RBC) count 2.40 10^6/MM^3 10*6/mm3 4.04-5.4 [...] .6-14.8 platelet count 38 recounted 10^3/mm^3 10*3/mm3 896-799 8134/04/03 leukocyte count, blood 5.6 10^3/MM^3 10*3/mm3 4.6-10.2 [...] 11 .6-14.8 platelet count 246 10^3/MM^3 10*3/mm3 902-351 3297/08/14 leukocyte count, blood 5.8 10^3/MM^3 10*3/mm3 4.6-10.2 [...] Panel - Chemistry cholesterol, serum 209 mg/dL 451-246 6892/09/11 triglyceride, serum, fasting 113 mg/dL 30-200 HDL [...] semiquantitative 7.0 5.0-8.5 Lab Report: VITAMIN D, 25-HYDROXY/61268, MAGNESIUM/622 - Chemistry vitamin D 25-hydroxy, serum 41 ng/mL 30-100 Encounters Code Encounter Date Provider Facility CPT-45394 Level 4 Est. Patient 19:08:42 CHANGE CONTROL SPECIALIST Hope cohn MD PhD [facility] CPT-07940 Level 4 Est. Patient 20:04:51 CDT Hope cohn MD PhD [facility] CPT-36092 Level 3 New Patient 01:46:11 CHANGE CONTROL SPECIALIST Hope landers MD PhD [facility] Procedures Code Procedure Name Date Entry Date Standard Desc ription CPT-J3420 Vitamin B12 1000mcg (Cyanocobalamin) 09:15:54 CHANGE CONTROL SPECIALIST CPT-70912 Abx/Therapy Injection 09:15:54 CHANGE CONTROL SPECIALIST CPT-J3420 Vitamin B12 1000mcg (Cyanocobalamin) 09:46:44 CHANGE CONTROL SPECIALIST CPT-79409 Abx/Therapy Injection 09:46:44 CHANGE CONTROL SPECIALIST CPT-J3420 Vitamin B12 1000mcg (Cyanocobalamin) 09:47:34 CHANGE CONTROL SPECIALIST CPT-22798 Abx/Therapy Injection 09:47:34 CHANGE CONTROL SPECIALIST CPT-J3420 Vitamin B12 1000mcg (Cyanocobalamin) 14:35:50 CHANGE CONTROL SPECIALIST CPT-J3420 Vitamin B12 1000mcg (Cyanocobalamin) 09:25:05 CHANGE CONTROL SPECIALIST CPT-45505 Abx/Therapy Injection 09:25:05 CHANGE CONTROL SPECIALIST CPT-G0008 Administration of Influenza Virus Vaccine 13:36:47 CDT CPT-47060 Fluzone High-Dose Intramuscular Suspension 11/15 13:36:47 CDT CPT-J0897 Prolia 60 mg 08:50:41 CDT CPT-61943 Abx/Therapy Injection 08:50:41 CDT CPT-76200 Bone Density 12:06:12 CDT CPT-40863 Bone Density 08:54:40 CDT CPT-OV Office Visit 15:37:02 CDT CPT-46550 Postop F/U Visit 15:47:49 CDT CPT-31041 Postop F/U Visit 15:21:02 CDT CPT-TCMH Transitional Care Mgmt-High 07:52:27 CDT 20 20/06/01 CPT-88453 Venipuncture Draw Fee 13:51:18 CDT CPT-99020 Venipuncture Draw Fee 10:14:55 CHANGE CONTROL SPECIALIST CPT-40129 Venipuncture Draw Fee 13:39:45 CHANGE CONTROL SPECIALIST CPT-OV Office Visit 15:11:22 CHANGE CONTROL SPECIALIST CPT-26411 Venipuncture Draw Fee 09:20:49 CHANGE CONTROL SPECIALIST CPT-56943 Venipuncture Draw Fee 16:52:15 CHANGE CONTROL SPECIALIST CPT-68223 Venipuncture Draw Fee 10:37:24 CHANGE CONTROL SPECIALIST CPT-74992 Venipuncture Draw Fee 08:21:21 CHANGE CONTROL SPECIALIST CPT-83723 Venipuncture Draw Fee 08:30:20 CHANGE CONTROL SPECIALIST CPT-30216 Venipuncture Draw Fee 14:53:21 CHANGE CONTROL SPECIALIST CPT-45208 Venipuncture Draw Fee 09:40:56 CHANGE CONTROL SPECIALIST CPT-74333 Venipuncture Draw Fee 10:30:47 CHANGE CONTROL SPECIALIST CPT-99725 Venipuncture Draw Fee 10:46:17 CHANGE CONTROL SPECIALIST CPT-93711 Venipuncture Draw Fee 11:12:45 CHANGE CONTROL SPECIALIST CPT-05770 Venipuncture Draw Fee 09:53:33 CHANGE CONTROL SPECIALIST CPT-06284 Venipuncture Draw Fee 11:53:51 CHANGE CONTROL SPECIALIST CPT-89407 Venipuncture Draw Fee 10:33:50 CHANGE CONTROL SPECIALIST CPT-50810 Venipuncture Draw Fee 10:05:01 CHANGE CONTROL SPECIALIST CPT-89019 Venipuncture Draw Fee 14:32:52 CHANGE CONTROL SPECIALIST CPT-80878 Venipuncture Draw Fee 09:46:13 CHANGE CONTROL SPECIALIST CPT-43806 Venipuncture Draw Fee 11:34:27 CHANGE CONTROL SPECIALIST CPT-55767 Venipuncture Draw Fee 13:17:16 CHANGE CONTROL SPECIALIST CPT-68378 Venipuncture Draw Fee 12:05:39 CDT CPT-83346 Venipuncture Draw Fee 12:49:12 CDT CPT-14726 Venipuncture Draw Fee 12:37:18 CDT CPT-70847 Venipuncture Draw Fee 10:57:11 CDT CPT-29349 Venipuncture Draw Fee 13:47:40 CDT CPT-94729 Venipuncture Draw Fee 10:02:17 CDT CPT-24901 TB Tubersol 17:32:32 CDT CPT-OV Office Visit 16:21:53 CDT CPT-OV Office Visit 15:49:22 CDT CPT-OV Office Visit 17:16:31 CDT CPT-OV Office Visit 10:43:31 CDT
--- OUTSIDE RECORDS SUMMARY | 2019-02-09 13:22 | XMS REPORT | Clinical Summary ---
Author Author Renaldo, Florecita Munoz Organization [facility] Address Unknown Phone Allergies, Adverse Reactions, Alerts [...] MG CAPS 1 q d FLUOXETINE HCL 63882 928731 No Longer Active Hope Benavidez MD PhD Active INNOPRAN XL 120 MG [id number] Take one by mouth daily PROPRANOLOL HCL SR BEADS 40589242861 Active Hope Benavidez MD PhD Active POTASSIUM CHLORIDE 20 MEQ PACK by mouth twice a day prn POTASSIUM CHLORIDE 63495542551 Active Adam Yates MD Activ e CYCLOBENZAPRINE HCL 10 MG TABS 1 tablet by mouth three times daily as needed for headaches CYCLOBENZAPRINE HCL 81212086050 Active Selena Yates MD Active SIMVASTATIN 40 MG TABS 1 qd SIMVASTATIN 004 73123398 No Longer Active Adam Yates MD Active MELOXICAM 15 MG TABS 1 qd MELOXICAM 1376553 2556 No Longer Active Adam Yates MD Active ATENOLOL 50 MG TABS 1/2 tab q other day ATENOLOL 71222641053 Active Hope Benavidez MD PhD Active OMEPRAZOLE 20 MG CPDR 1 tablet by mouth daily for GERD OMEPRAZOLE 94311011776 Active Hope Benavidez MD PhD Active IMODIUM A-D 2 MG TABS 2 onset at diarrhea and prn. LOPERAMIDE HCL 89743182919 Active Hope Benavidez MD PhD Active PHENADOZ 25 MG SUPP 1 every 4 hrs. PRN PROMETHAZINE HCL 09457567361 Active Hope Benavidez MD PhD Active PROMETHAZINE HCL 25 MG TABS 1 Q. 4 hr. PRN PROMETH AZINE HCL 70442945897 Active Hope Benavidez MD PhD Active EXCEDRIN EXTRA STRENGTH 250-250-65 MG TABS 1-2 q6h PRN headache 201 04/16/21 [id number] 39115090447 Active Hope Benavidez MD PhD Active ZOFRAN 4 MG TABS 1 q 6 hr prn ONDANSETRON HCL 8641063 7002 Active Fay Alberts Active FLAGYL 500 MG TABS 1 qid METRONIDAZOLE 26200 632003 No Longer Active Adam Yates MD Active LEVAQUIN 750 MG TABS 1 qd LEVOFLOXACIN 5486 9100598 No Longer Active Adam Yates MD Active DYAZIDE 37.5-25 MG CAPS 1 qd TRIAMTERENE-HCTZ 5886 6678976 Active Hope Benavidez MD PhD Active ADULT ASPIRIN LOW STRENGTH 81 MG TBDP 1 qd A SPIRIN 98055311381 Active Hope Benavidez MD PhD Active LEVAQUIN 750 MG TABS 1 qd LEVAQUIN 750 MG T ABS 186051 LEVOFLOXACIN Inactive FLAGYL 500 MG TABS 1 qid FLAGYL 500 MG TABS 269885 METRONIDAZOLE Inactive MELOXICAM 15 MG TABS 1 qd MELOXICAM 15 MG T ABS 159682 MELOXICAM Inactive SIMVASTATIN 40 MG TABS 1 qd SIMVASTATIN 40 MG TABS 072561 SIMVASTATIN Inactive PROZAC 20 MG CAPS 1 [...] - Chem istry sodium, serum 137 mmol/L 613-004 8947/11/01 potassium, serum 3.7 mmol/L 3.5-5.2 chloride, serum 100 mmol/L 98-107 carbon dioxide, venous blood 31.8 mmol/L 21.0-32 .0 blood glucose 98 mg/dL 65-110 calcium, serum 8.6 mg/dL 8.5-10.1 urea nitrogen, blood 23 mg/dL 7-18 creatinine, serum 1.50 mg/dL 0.60-1.30 sodium, serum 136 mmol/L 284-801 3433/05/02 potassium, serum 4.1 mmol/L 3.5-5.2 chloride, serum [...] 11 .6-14.8 platelet count 133 10^3/MM^3 10*3/mm3 945-040 5895/01/17 leukocyte count, blood 3.1 10^3/MM^3 10*3/mm3 4.6-10.2 [...] 11 .6-14.8 platelet count 22 10^3/MM^3 10*3/mm3 735-701 3101/11/19 leukocyte count, blood 10.4 10^3/MM^3 10*3/mm3 4.6-10.2 [...] Verified By Repeat Analysis 10^3/mm ^3 10*3/mm3 111-826 7803/12/10 leukocyte count, blood 7.8 10^3/MM^3 10*3/mm3 4.6-10.2 [...] Panel - Chemistry sodium, serum 139 mmol/L 271-485 3328/12/03 potassium, serum 3.7 mmol/L 3.5-5.2 chloride, serum [...] 0.40 mg/dL 0.00-1.00 sodium, serum 137 mmol/L 675-360 1733/10/01 potassium, serum 3.5 mmol/L 3.5-5.2 chloride, serum [...] 0.60 mg/dL 0.00-1.00 sodium, serum 136 mmol/L 609-765 9650/10/08 potassium, serum 3.1 mmol/L 3.5-5.2 chloride, serum [...] 0.60 mg/dL 0.00-1.00 sodium, serum 139 mmol/L 509-207 2249/10/17 potassium, serum 3.1 mmol/L 3.5-5.2 chloride, serum [...] 0.30 mg/dL 0.00-1.00 sodium, serum 139 mmol/L 654-503 2827/01/21 potassium, serum 3.4 mmol/L 3.5-5.2 chloride, serum [...] 0.40 mg/dL 0.00-1.00 sodium, serum 138 mmol/L 543-557 1860/01/28 potassium, serum 3.2 mmol/L 3.5-5.2 chloride, serum [...] 0.40 mg/dL 0.00-1.00 sodium, serum 140 mmol/L 044-799 8172/02/04 potassium, serum 3.6 mmol/L 3.5-5.2 chloride, serum [...] 0.70 mg/dL 0.00-1.00 sodium, serum 142 mmol/L 296-672 1925/01/03 potassium, serum 3.4 mmol/L 3.5-5.2 chloride, serum [...] 0.50 mg/dL 0.00-1.00 sodium, serum 140 mmol/L 480-997 9286/01/06 potassium, serum 3.4 mmol/L 3.5-5.2 chloride, serum [...] 0.40 mg/dL 0.00-1.00 sodium, serum 136 mmol/L 311-276 4170/04/03 potassium, serum 3.7 mmol/L 3.5-5.2 chloride, serum [...] 0.40 mg/dL 0.00-1.00 sodium, serum 136 mmol/L 613-877 9078/02/11 potassium, serum 3.1 mmol/L 3.5-5.2 chloride, serum [...] 0.50 mg/dL 0.00-1.00 sodium, serum 139 mmol/L 093-294 7738/02/18 potassium, serum 3.6 mmol/L 3.5-5.2 chloride, serum [...] 11 .6-14.8 platelet count 246 10^3/MM^3 10*3/mm3 021-464 9273/02/18 leukocyte count, blood 4.0 10^3/MM^3 10*3/mm3 4.6-10.2 [...] 11 .6-14.8 platelet count 134 10^3/MM^3 10*3/mm3 011-679 2700/01/03 leukocyte count, blood 8.1 10^3/MM^3 10*3/mm3 4.6-10.2 [...] 11 .6-14.8 platelet count 96 10^3/MM^3 10*3/mm3 889-953 1605/01/06 leukocyte count, blood 7.6 10^3/MM^3 10*3/mm3 4.6-10.2 [...] 11 .6-14.8 platelet count 132 10^3/MM^3 10*3/mm3 340-613 7077/02/11 leukocyte count, blood 4.8 10^3/MM^3 10*3/mm3 4.6-10.2 [...] 11 .6-14.8 platelet count 102 10^3/MM^3 10*3/mm3 573-708 8962/02/04 leukocyte count, blood 3.6 10^3/MM^3 10*3/mm3 4.6-10.2 [...] 11 .6-14.8 platelet count 70 10^3/MM^3 10*3/mm3 559-759 6658/01/28 leukocyte count, blood 4.2 10^3/MM^3 10*3/mm3 4.6-10.2 [...] 11 .6-14.8 platelet count 73 10^3/MM^3 10*3/mm3 279-626 0930/01/21 leukocyte count, blood 4.9 10^3/MM^3 10*3/mm3 4.6-10.2 [...] .6-14.8 platelet count 38 recounted 10^3/mm^3 10*3/mm3 520-694 2094/10/08 leukocyte count, blood 2.9 10^3/MM^3 10*3/mm3 4.6-10.2 [...] 11 .6-14.8 platelet count 229 10^3/MM^3 10*3/mm3 585-063 1297/10/17 leukocyte count, blood 12.0 10^3/MM^3 10*3/mm3 4.6-10.2 [...] 11 .6-14.8 platelet count 232 10^3/MM^3 10*3/mm3 368-419 1623/10/01 leukocyte count, blood 8.3 10^3/MM^3 10*3/mm3 4.6-10.2 [...] 11 .6-14.8 platelet count 378 10^3/MM^3 10*3/mm3 976-721 4569/12/03 leukocyte count, blood 8.2 10^3/MM^3 10*3/mm3 4.6-10.2 [...] Diff/Morphology - Chemistry sodium, serum 141 mmol/L 686-800 9471/11/25 potassium, serum 3.9 mmol/L 3.5-5.2 chloride, serum [...] 0.50 mg/dL 0.00-1.00 sodium, serum 137 mmol/L 605-740 1852/11/12 potassium, serum 3.2 mmol/L 3.5-5.2 chloride, serum [...] 0.40 mg/dL 0.00-1.00 sodium, serum 140 mmol/L 203-309 8565/12/17 potassium, serum 3.3 mmol/L 3.5-5.2 chloride, serum [...] 0.40 mg/dL 0.00-1.00 sodium, serum 138 mmol/L 682-279 2541/12/24 potassium, serum 3.7 mmol/L 3.5-5.2 chloride, serum [...] 0.50 mg/dL 0.00-1.00 sodium, serum 138 mmol/L 935-756 8130/11/05 potassium, serum 3.9 mmol/L 3.5-5.2 chloride, serum [...] 0.40 mg/dL 0.00-1.00 sodium, serum 135 mmol/L 030-048 2761/10/22 potassium, serum 3.0 mmol/L 3.5-5.2 chloride, serum [...] 0.50 mg/dL 0.00-1.00 sodium, serum 128 mmol/L 723-234 3189/10/29 potassium, serum 2.6 mmol/L 3.5-5.2 chloride, serum [...] 0.50 mg/dL 0.00-1.00 sodium, serum 141 mmol/L 507-756 7920/01/14 potassium, serum 3.9 mmol/L 3.5-5.2 chloride, serum [...] 11 .6-14.8 platelet count 22 10^3/MM^3 10*3/mm3 753-635 2673/10/22 leukocyte count, blood 14.7 10^3/MM^3 10*3/mm3 4.6-10.2 [...] 11 .6-14.8 platelet count 428 10^3/MM^3 10*3/mm3 491-043 2229/10/29 leukocyte count, blood 26.3 10^3/MM^3 10*3/mm3 4.6-10.2 [...] 11 .6-14.8 platelet count 268 10^3/MM^3 10*3/mm3 739-290 1527/11/12 leukocyte count, blood 12.1 10^3/MM^3 10*3/mm3 4.6-10.2 [...] 11 .6-14.8 platelet count 157 10^3/MM^3 10*3/mm3 028-538 5675/11/05 leukocyte count, blood 16.4 10^3/MM^3 10*3/mm3 4.6-10.2 [...] 11 .6-14.8 platelet count 215 10^3/MM^3 10*3/mm3 042-203 0016/12/24 leukocyte count, blood 14.0 10^3/MM^3 10*3/mm3 4.6-10.2 [...] 11 .6-14.8 platelet count 66 10^3/MM^3 10*3/mm3 842-053 6748/12/17 leukocyte count, blood 18.6 10^3/MM^3 10*3/mm3 4.6-10.2 [...] 11 .6-14.8 platelet count 75 10^3/MM^3 10*3/mm3 048-884 6711/11/25 leukocyte count, blood 21.1 10^3/MM^3 10*3/mm3 4.6-10.2 [...] 11 .6-14.8 platelet count 413 10^3/MM^3 10*3/mm3 665-065 5166/01/16 leukocyte count, blood 3.6 10^3/MM^3 10*3/mm3 4.6-10.2 [...] - Chem istry sodium, serum 141 mmol/L 438-427 2335/11/19 potassium, serum 3.9 mmol/L 3.5-5.2 chloride, serum [...] 0.50 mg/dL 0.00-1.00 sodium, serum 142 mmol/L 955-165 9390/12/10 potassium, serum 3.9 mmol/L 3.5-5.2 chloride, serum [...] Diff/Morphology - Chemistry sodium, serum 142 mmol/L 842-133 4006/12/31 potassium, serum 3.6 mmol/L 3.5-5.2 chloride, serum [...] 3.5-5.2 Encounters Code Encounter Date Provider Facility CPT-92616 Level 3 New Patient 01:46:11 PARTITION ASSEMBLER Hope landers MD PhD [facility] Procedures Code Procedure Name Date Entry Date Standard Desc ription CPT-15531 Postop F/U Visit 15:21:02 CDT CPT-TCMH Transitional Care Mgmt-High 07:52:27 CDT 20 20/06/01 CPT-39574 Venipuncture Draw Fee 13:51:18 CDT CPT-43013 Venipuncture Draw Fee 10:14:55 [employer]ITION ASSEMBLER CPT-90177 Venipuncture Draw Fee 13:39:45 PARTITION ASSEMBLER CPT-OV Office Visit 15:11:22 PARTITION ASSEMBLER CPT-04385 Venipuncture Draw Fee 09:20:49 PARTITION ASSEMBLER CPT-64265 Venipuncture Draw Fee 16:52:15 [employer]ITION [employer] CPT-92962 Venipuncture Draw Fee 10:37:24 [employer]ITION [employer] CPT-49135 Venipuncture Draw Fee 08:21:21 [employer]ITION [employer] CPT-25369 Venipuncture Draw Fee 08:30:20 [employer]ITION [employer]ER CPT-68974 Venipuncture Draw Fee 14:53:21 [employer]ITION [employer]SEM[employer]ER CPT-18488 Venipuncture Draw Fee 09:40:56 [employer]ITION [employer]ER CPT-88250 Venipuncture Draw Fee 10:30:47 [employer]ITION [employer]ER CPT-16921 Venipuncture Draw Fee 10:46:17 [employer]ITION [employer]SEM[employer] CPT-57290 Venipuncture Draw Fee 11:12:45 [employer]ITION [employer]SEM[employer] CPT-16867 Venipuncture Draw Fee 09:53:33 [employer]ITION [employer]ER CPT-80591 Venipuncture Draw Fee 11:53:51 [employer]ITION [employer] CPT-95743 Venipuncture Draw Fee 10:33:50 [employer]ITION [employer] CPT-20620 Venipuncture Draw Fee 10:05:01 [employer]ITION [employer] CPT-51273 Venipuncture Draw Fee 14:32:52 [employer]ITION [employer] CPT-58878 Venipuncture Draw Fee 09:46:13 [employer]ITION [employer] CPT-40833 Venipuncture Draw Fee 11:34:27 [employer]ITION [employer] CPT-26071 Venipuncture Draw Fee 13:17:16 [employer] CPT-95459 Venipuncture Draw Fee 12:05:39 CDT CPT-38375 Venipuncture Draw Fee 12:49:12 CDT CPT-56047 Venipuncture Draw Fee 12:37:18 CDT CPT-89929 Venipuncture Draw Fee 10:57:11 CDT CPT-28473 Venipuncture Draw Fee 13:47:40 CDT CPT-81953 Venipuncture Draw Fee 10:02:17 CDT CPT-99535 TB Tubersol 17:32:32 CDT CPT-OV Office Visit 16:21:53 CDT CPT-OV Office Visit 15:49:22 CDT CPT-OV Office Visit 17:16:31 CDT CPT-OV Office Visit 10:43:31 CDT
--- OUTSIDE RECORDS SUMMARY | 2019-02-09 13:22 | XMS REPORT | Clinical Summary ---
Author Author Renaldo, Florecita Munoz Organization [facility] Address Unknown Phone Allergies, Adverse [...] 1 tab 3x aday M AGNESIUM GLUCONATE 61470070448 Active Adam Yates MD Active PROZAC 20 MG CAPS 1 q d FLUOXETINE HCL 48569 910526 No Longer Active Hope Benavidez MD PhD Active INNOPRAN XL 120 MG [id number] Take one by mouth daily PROPRANOLOL HCL SR BEADS 67397398896 Active Hope Benavidez MD PhD Active POTASSIUM CHLORIDE 20 MEQ PACK by mouth twice a day prn POTASSIUM CHLORIDE 80778433229 Active Adam Yaets MD Activ e CYCLOBENZAPRINE HCL 10 MG TABS 1 tablet by mouth three times daily as needed for headaches CYCLOBENZAPRINE HCL 91222157041 Active Selena Yates MD Active SIMVASTATIN 40 MG TABS 1 qd SIMVASTATIN 004 73208023 No Longer Active Adam Yates MD Active MELOXICAM 15 MG TABS 1 qd MELOXICAM 7975348 6105 No Longer Active Adam Yates MD Active ATENOLOL 50 MG TABS 1/2 tab q other day ATENOLOL 50721567490 Active Hope Benavidez MD PhD Active OMEPRAZOLE 20 MG CPDR 1 tablet by mouth daily for GERD OMEPRAZOLE 77434360366 Active Hope Benavidez MD PhD Active IMODIUM A-D 2 MG TABS 2 onset at diarrhea and prn. LOPERAMIDE HCL 67995213496 Active Hope Benavidez MD PhD Active PHENADOZ 25 MG SUPP 1 every 4 hrs. PRN PROMETHAZINE HCL 59431028646 Active Hope Benavidez MD PhD Active PROMETHAZINE HCL 25 MG TABS 1 Q. 4 hr. PRN PROMETH AZINE HCL 64943440959 Active Hope Benavidez MD PhD Active EXCEDRIN EXTRA STRENGTH 250-250-65 MG TABS 1-2 q6h PRN headache 201 04/16/21 EKRYEIM-SQWFXZXYANWYG-BNFLAXEN 21430896659 Active Hope Benavidez MD PhD Active ZOFRAN 4 MG TABS 1 q 6 hr prn ONDANSETRON HCL 6620584 7002 Active Fay Alberts Active FLAGYL 500 MG TABS 1 qid METRONIDAZOLE 72987 998183 No Longer Active Adam Yates MD Active LEVAQUIN 750 MG TABS 1 qd LEVOFLOXACIN 5486 3521972 No Longer Active Adam Yates MD Active DYAZIDE 37.5-25 MG CAPS 1 qd TRIAMTERENE-HCTZ 5886 2090948 Active Hope Benavidez MD PhD Active ADULT ASPIRIN LOW STRENGTH 81 MG TBDP 1 qd A SPIRIN 92279931912 Active Hope Benavidez MD PhD Active LEVAQUIN 750 MG TABS 1 qd LEVAQUIN 750 MG T ABS 636100 LEVOFLOXACIN Inactive FLAGYL 500 MG TABS 1 qid FLAGYL 500 MG TABS 428127 METRONIDAZOLE Inactive MELOXICAM 15 MG TABS 1 qd MELOXICAM 15 MG T ABS 344742 MELOXICAM Inactive SIMVASTATIN 40 MG TABS 1 qd SIMVASTATIN 40 MG TABS 758580 SIMVASTATIN Inactive PROZAC 20 MG CAPS 1 [...] - Chem istry sodium, serum 137 mmol/L 560-197 1223/11/01 potassium, serum 3.7 mmol/L 3.5-5.2 chloride, serum 100 mmol/L 98-107 carbon dioxide, venous blood 31.8 mmol/L 21.0-32 .0 blood glucose 98 mg/dL 65-110 calcium, serum 8.6 mg/dL 8.5-10.1 urea nitrogen, blood 23 mg/dL 7-18 creatinine, serum 1.50 mg/dL 0.60-1.30 sodium, serum 136 mmol/L 513-460 0572/05/02 potassium, serum 4.1 mmol/L 3.5-5.2 chloride, serum [...] 11 .6-14.8 platelet count 133 10^3/MM^3 10*3/mm3 022-558 9970/01/17 leukocyte count, blood 3.1 10^3/MM^3 10*3/mm3 4.6-10.2 [...] 11 .6-14.8 platelet count 22 10^3/MM^3 10*3/mm3 440-455 2021/11/19 leukocyte count, blood 10.4 10^3/MM^3 10*3/mm3 4.6-10.2 [...] Verified By Repeat Analysis 10^3/mm ^3 10*3/mm3 091-093 9215/12/10 leukocyte count, blood 7.8 10^3/MM^3 10*3/mm3 4.6-10.2 [...] Panel - Chemistry sodium, serum 139 mmol/L 368-035 2347/12/03 potassium, serum 3.7 mmol/L 3.5-5.2 chloride, serum [...] 0.40 mg/dL 0.00-1.00 sodium, serum 137 mmol/L 211-359 4828/10/01 potassium, serum 3.5 mmol/L 3.5-5.2 chloride, serum [...] 0.60 mg/dL 0.00-1.00 sodium, serum 136 mmol/L 597-482 3940/10/08 potassium, serum 3.1 mmol/L 3.5-5.2 chloride, serum [...] 0.60 mg/dL 0.00-1.00 sodium, serum 139 mmol/L 130-722 7436/10/17 potassium, serum 3.1 mmol/L 3.5-5.2 chloride, serum [...] 0.30 mg/dL 0.00-1.00 sodium, serum 139 mmol/L 489-424 5324/01/21 potassium, serum 3.4 mmol/L 3.5-5.2 chloride, serum [...] 0.40 mg/dL 0.00-1.00 sodium, serum 138 mmol/L 722-614 2949/01/28 potassium, serum 3.2 mmol/L 3.5-5.2 chloride, serum 97 mmol/L 98-107 carbon dioxide, venous blood 27.8 mmol/L 21.0-32 .0 blood glucose 97 mg/dL 65-110 urea nitrogen, blood 16 mg/dL - creatinine, serum 1.30 mg/dL 0.60-1.30 alanine aminotransferase (SGPT), serum 13 U/L aspartate aminotransferase (SGOT), serum 16 U/L 15-37 alkaline phosphatase, serum 128 U/L 50-136 calcium, serum 9.3 mg/dL 8.5-10.1 bilirubin, serum, total 0.40 mg/dL 0.00-1.00 sodium, serum 140 mmol/L 503-114 0307/02/04 potassium, serum 3.6 mmol/L 3.5-5.2 chloride, serum 100 mmol/L 98-107 carbon dioxide, venous blood 32.9 mmol/L 21.0-32 .0 blood glucose 93 mg/dL 65-110 urea nitrogen, blood 15 mg/dL - creatinine, serum 1.00 mg/dL 0.60-1.30 alanine aminotransferase (SGPT), serum 14 U/L aspartate aminotransferase (SGOT), serum 17 U/L 15-37 alkaline phosphatase, serum 118 U/L 50-136 calcium, serum 9.1 mg/dL 8.5-10.1 bilirubin, serum, total 0.70 mg/dL 0.00-1.00 sodium, serum 142 mmol/L 278-478 5546/01/03 potassium, serum 3.4 mmol/L 3.5-5.2 chloride, serum [...] 0.50 mg/dL 0.00-1.00 sodium, serum 140 mmol/L 816-887 8488/01/06 potassium, serum 3.4 mmol/L 3.5-5.2 chloride, serum [...] 0.40 mg/dL 0.00-1.00 sodium, serum 136 mmol/L 402-325 4469/04/03 potassium, serum 3.7 mmol/L 3.5-5.2 chloride, serum [...] 0.40 mg/dL 0.00-1.00 sodium, serum 136 mmol/L 871-697 8921/02/11 potassium, serum 3.1 mmol/L 3.5-5.2 chloride, serum [...] 0.50 mg/dL 0.00-1.00 sodium, serum 139 mmol/L 641-802 7734/02/18 potassium, serum 3.6 mmol/L 3.5-5.2 chloride, serum [...] 11 .6-14.8 platelet count 246 10^3/MM^3 10*3/mm3 782-006 6772/02/18 leukocyte count, blood 4.0 10^3/MM^3 10*3/mm3 4.6-10.2 [...] 11 .6-14.8 platelet count 134 10^3/MM^3 10*3/mm3 759-241 4312/01/03 leukocyte count, blood 8.1 10^3/MM^3 10*3/mm3 4.6-10.2 [...] 11 .6-14.8 platelet count 96 10^3/MM^3 10*3/mm3 750-716 0454/01/06 leukocyte count, blood 7.6 10^3/MM^3 10*3/mm3 4.6-10.2 [...] 11 .6-14.8 platelet count 132 10^3/MM^3 10*3/mm3 717-622 2526/02/11 leukocyte count, blood 4.8 10^3/MM^3 10*3/mm3 4.6-10.2 [...] 11 .6-14.8 platelet count 102 10^3/MM^3 10*3/mm3 394-847 3321/02/04 leukocyte count, blood 3.6 10^3/MM^3 10*3/mm3 4.6-10.2 [...] 11 .6-14.8 platelet count 70 10^3/MM^3 10*3/mm3 455-148 4599/01/28 leukocyte count, blood 4.2 10^3/MM^3 10*3/mm3 4.6-10.2 [...] 11 .6-14.8 platelet count 73 10^3/MM^3 10*3/mm3 429-064 6338/01/21 leukocyte count, blood 4.9 10^3/MM^3 10*3/mm3 4.6-10.2 [...] .6-14.8 platelet count 38 recounted 10^3/mm^3 10*3/mm3 221-001 1819/10/08 leukocyte count, blood 2.9 10^3/MM^3 10*3/mm3 4.6-10.2 [...] 11 .6-14.8 platelet count 229 10^3/MM^3 10*3/mm3 794-309 0365/10/17 leukocyte count, blood 12.0 10^3/MM^3 10*3/mm3 4.6-10.2 [...] 11 .6-14.8 platelet count 232 10^3/MM^3 10*3/mm3 530-191 5756/10/01 leukocyte count, blood 8.3 10^3/MM^3 10*3/mm3 4.6-10.2 [...] 11 .6-14.8 platelet count 378 10^3/MM^3 10*3/mm3 478-832 0283/12/03 leukocyte count, blood 8.2 10^3/MM^3 10*3/mm3 4.6-10.2 [...] Diff/Morphology - Chemistry sodium, serum 141 mmol/L 809-083 6821/11/25 potassium, serum 3.9 mmol/L 3.5-5.2 chloride, serum [...] 0.50 mg/dL 0.00-1.00 sodium, serum 137 mmol/L 209-774 0696/11/12 potassium, serum 3.2 mmol/L 3.5-5.2 chloride, serum [...] 0.40 mg/dL 0.00-1.00 sodium, serum 140 mmol/L 209-241 4044/12/17 potassium, serum 3.3 mmol/L 3.5-5.2 chloride, serum [...] 0.40 mg/dL 0.00-1.00 sodium, serum 138 mmol/L 014-800 7411/12/24 potassium, serum 3.7 mmol/L 3.5-5.2 chloride, serum [...] 0.50 mg/dL 0.00-1.00 sodium, serum 138 mmol/L 165-177 0991/11/05 potassium, serum 3.9 mmol/L 3.5-5.2 chloride, serum [...] 0.40 mg/dL 0.00-1.00 sodium, serum 135 mmol/L 485-027 0193/10/22 potassium, serum 3.0 mmol/L 3.5-5.2 chloride, serum [...] 0.50 mg/dL 0.00-1.00 sodium, serum 128 mmol/L 798-514 4441/10/29 potassium, serum 2.6 mmol/L 3.5-5.2 chloride, serum [...] 0.50 mg/dL 0.00-1.00 sodium, serum 141 mmol/L 628-673 2852/01/14 potassium, serum 3.9 mmol/L 3.5-5.2 chloride, serum [...] 11 .6-14.8 platelet count 22 10^3/MM^3 10*3/mm3 813-914 5753/10/22 leukocyte count, blood 14.7 10^3/MM^3 10*3/mm3 4.6-10.2 [...] 11 .6-14.8 platelet count 428 10^3/MM^3 10*3/mm3 574-916 5996/10/29 leukocyte count, blood 26.3 10^3/MM^3 10*3/mm3 4.6-10.2 [...] 11 .6-14.8 platelet count 268 10^3/MM^3 10*3/mm3 357-401 9878/11/12 leukocyte count, blood 12.1 10^3/MM^3 10*3/mm3 4.6-10.2 [...] 11 .6-14.8 platelet count 157 10^3/MM^3 10*3/mm3 080-324 2947/11/05 leukocyte count, blood 16.4 10^3/MM^3 10*3/mm3 4.6-10.2 [...] 11 .6-14.8 platelet count 215 10^3/MM^3 10*3/mm3 926-605 9072/12/24 leukocyte count, blood 14.0 10^3/MM^3 10*3/mm3 4.6-10.2 [...] 11 .6-14.8 platelet count 66 10^3/MM^3 10*3/mm3 646-715 8888/12/17 leukocyte count, blood 18.6 10^3/MM^3 10*3/mm3 4.6-10.2 [...] 11 .6-14.8 platelet count 75 10^3/MM^3 10*3/mm3 341-084 7256/11/25 leukocyte count, blood 21.1 10^3/MM^3 10*3/mm3 4.6-10.2 [...] 11 .6-14.8 platelet count 413 10^3/MM^3 10*3/mm3 456-255 0564/01/16 leukocyte count, blood 3.6 10^3/MM^3 10*3/mm3 4.6-10.2 [...] - Chem istry sodium, serum 141 mmol/L 558-828 5017/11/19 potassium, serum 3.9 mmol/L 3.5-5.2 chloride, serum [...] 0.50 mg/dL 0.00-1.00 sodium, serum 142 mmol/L 022-971 6516/12/10 potassium, serum 3.9 mmol/L 3.5-5.2 chloride, serum 102 mmol/L 98-107 carbon dioxide, venous blood 32.9 mmol/L 21.0-32 .0 blood glucose 86 mg/dL 65-110 urea nitrogen, blood 26 mg/dL 7-18 creatinine, serum 1.30 mg/dL 0.60-1.30 alanine aminotransferase (SGPT), serum 25 U/L - aspartate aminotransferase (SGOT), serum 30 U/L 15-37 alkaline phosphatase, serum 201 U/L 50-136 calcium, serum 8.5 mg/dL 8.5-10.1 bilirubin, serum, total 0.40 mg/dL 0.00-1.00 Lab Report: Comp. Metabolic Panel, CBC W /DIFF, Manual Diff/Morphology - Chemistry sodium, serum 142 mmol/L 781-328 3452/12/31 potassium, serum 3.6 mmol/L 3.5-5.2 chloride, serum [...] 3.5-5.2 Encounters Code Encounter Date Provider Facility CPT-95471 Level 3 New Patient 01:46:11 [employer]ESSION[employer] Hope landers MD PhD [facility] Procedures Code Procedure Name Date Entry Date Standard Desc ription CPT-07257 Postop F/U Visit 15:47:49 CDT CPT-67018 Postop F/U Visit 15:21:02 CDT CPT-TCM Transitional Care Mgmt-High 07:52:27 CDT 20 20/06/01 CPT-98257 Venipuncture Draw Fee 13:51:18 CDT CPT-14437 Venipuncture Draw Fee 10:14:55 [employer] CPT-63510 Venipuncture Draw Fee 13:39:45 [employer] CPT-OV Office Visit 15:11:22 [employer] CPT-77151 Venipuncture Draw Fee 09:20:49 [employer] CPT-53115 Venipuncture Draw Fee 16:52:15 [employer] CPT-26165 Venipuncture Draw Fee 10:37:24 [employer] CPT-93765 Venipuncture Draw Fee 08:21:21 [employer] CPT-26250 Venipuncture Draw Fee 08:30:20 [employer] CPT-04356 Venipuncture Draw Fee 14:53:21 [employer] CPT-27647 Venipuncture Draw Fee 09:40:56 [employer] CPT-71210 Venipuncture Draw Fee 10:30:47 [employer] CPT-89521 Venipuncture Draw Fee 10:46:17 [employer] CPT-99462 Venipuncture Draw Fee 11:12:45 [employer] CPT-45252 Venipuncture Draw Fee 09:53:33 [employer] CPT-98349 Venipuncture Draw Fee 11:53:51 [employer] CPT-84664 Venipuncture Draw Fee 10:33:50 [employer] CPT-78000 Venipuncture Draw Fee 10:05:01 [employer] CPT-31656 Venipuncture Draw Fee 14:32:52 [employer] CPT-59770 Venipuncture Draw Fee 09:46:13 [employer]ESSION[employer] CPT-13592 Venipuncture Draw Fee 11:34:27 [employer]ESSIONAL CPT-95982 Venipuncture Draw Fee 13:17:16 [employer] CPT-57122 Venipuncture Draw Fee 12:05:39 CDT CPT-48132 Venipuncture Draw Fee 12:49:12 CDT CPT-38024 Venipuncture Draw Fee 12:37:18 CDT CPT-82561 Venipuncture Draw Fee 10:57:11 CDT CPT-18248 Venipuncture Draw Fee 13:47:40 CDT CPT-60092 Venipuncture Draw Fee 10:02:17 CDT CPT-54618 TB Tubersol 17:32:32 CDT CPT-OV Office Visit 16:21:53 CDT CPT-OV Office Visit 15:49:22 CDT CPT-OV Office Visit 17:16:31 CDT CPT-OV Office Visit 10:43:31 CDT
--- OUTSIDE RECORDS SUMMARY | 2019-02-09 13:23 | XMS REPORT ---
Author Author [facility] Medic al StaffYUDITH Organization [facility] Address [address] [id number] Phone [phone] Care Team Providers Care Biomedical Analytical Scientist Name Role Phone OSITO TAVERAS MD PP [phone] Summary purpose TRANSITION OF CARE AUTO GENERATION [...] diagnostic tests and/or laboratory data RESULTS Chemistry [id number]:48:00 Result Normal Range Units Sodium 139 134-145 mEq/l Potassium 3.9 3.5-5.1 mEq/l Chloride 104 98-107 mEq/l CO2 H 28.8 22-28 mEq/l Glucose 85 70-105 mg/dl BUN H 25 7-18 mg/dl Creatinine H 1.26 0.6-1.0 mg/dl Calcium 8.5 8.4-10.2 mg/dl PO4 3.1 1.9-4.5 mg/dl TP - Total Protein 7.1 6.0-8.3 g /dl Albumin 3.6 3.5-5 g/dl Bilirubin - Total 0.6 0.1-1.0 mg /dl AST 33 10-42 IU/L ALT 44 12-65 IU/L ALP H 127 25-72 IU/L Magnesium 2.1 1.7-2.8 mg/dl Osmolality 281.2 280-300 mOsm/L Albumin/Globulin Ratio 1.0 0-8 Anion GAP L 6.2 8-16 BUN/Creatinine Ratio 19.8 10-20 Estimated GFR L 42 >= 60 mL/min /1.7 Hematology :48:00 Result Normal Range Units WBC L 4.6 4.8-10.8 103/uL RBC L 4.0 4.2-5.4 106/uL HGB 13.6 12.0-16.0 g/dl HCT 39.3 36.9-47.0 % MCV 98.7 81-99 FL MCH H 34.2 27-31 pg MCHC 34.6 33-37 g/dl RDW 13.4 11.5-15.5 % PLT 162 130-400 103/uL MPV 8.3 7.3-10.4 FL Neutro % 54.7 40-70 % Lymph % 31.7 20-40 % Stanley % 9.3 0-10.0 % Eos % 4.1 0-7.0 % Baso % 0.2 0-2 % Neutro # 2.5 1.5-7.5 103/uL Lymph # 1.5 0.9-4.0 103/uL Stanley # 0.4 0-0.8 103/uL Eos # 0.2 0-0.6 103/uL Baso # 0.0 0-0.1 103/uL Radiology Results :48:00 Result Normal Range Units MPV 8.3 7.3-10.4 FL History of procedures No procedures recorded for [...]
--- OUTSIDE RECORDS SUMMARY | 2019-02-09 13:23 | XMS REPORT | Clinical Summary ---
Author Author Renaldo, Florecita Munoz Organization [facility] Address Unknown [...] shot every 6 months for osteoprosis DENOSUMAB [id number] Active Hope Benavdiez MD PhD Active CALCIUM + D + K 750-500-40 MG-UNT-MCG TABS 1 tab by mouth tw ice daily CALCIUM-VITAMIN D-VITAMIN K 00562033260 Active Hope landers MD PhD Active DAILY VALUE MULTIVITAMIN TABS 1 tab by mouth twice daily MULTIPLE VITAMIN 46001598696 Active Hope Benavidez MD PhD Active FISH OIL 306 MG CAPS 1 tab by mouth three times daily OMEGA-3 FATTY ACIDS 77962929615 Active Hope Benavidez MD PhD Active LUTEIN 10 MG TABS 1 tab daily LUTEIN 82468414095 Act cash Hope Benavidez MD PhD Active FLORANEX PACK 1 pack three times daily, for bowel health LACTOBACILLUS 37799635618 Active Hope Benavidez MD PhD Active LOMOTIL 2.5-0.025 MG TABS 1 tab by mouth prn DIPHENOXYLATE-ATROPINE 52887645356 Active Hope Benavidez MD PhD Active TRIAMTERENE-HCTZ 37.5-25 MG TABS 1 tab by mouth daily TRIAMTERENE-HCTZ 43786238416 Active Hope Benavidez MD PhD Acti ve IRON 325 (65 FE) MG TABS 1 tab daily FERROUS SULF ATE 47944594285 Active Hope Benavidez MD PhD Active MAGNESIUM GLUCONATE 250 MG TABS 1 tab tid MAGN ESIUM GLUCONATE 31442174762 Active Adam Yates MD Active ATENOLOL 50 MG TABS 1/2 tab q other day m-w-f ATE NOLOL 45170305402 Active Adam Yates MD Active PROPRANOLOL HCL 80 MG TABS 1 tab tue. and thur. PROPRANOLOL HCL 13263570355 Active Adam Yates MD Active CYCLOBENZAPRINE HCL 10 MG TABS 1 tablet by mouth three times daily as needed for headaches CYCLOBENZAPRINE HCL 53726205930 No Longe r Active Adam Yates MD Active OMEPRAZOLE 20 MG CPDR 1 tablet by mouth daily for GERD OMEPRAZOLE 95821770904 No Longer Active Adam Yates MD A ctive ZOFRAN 8 MG TABS 1 tab by mouth every 12 hours prn 201 05/16/09 ONDANSETRON HCL 81533364703 No Longer Active Adam Yates MD Active PHENADOZ 25 MG SUPP 1 every 4 hrs. PRN PROMETHA ZINE HCL 68724122876 No Longer Active Adam Yates MD Active POTASSIUM CHLORIDE 20 MEQ PACK by mouth twice a day prn POTASSIUM CHLORIDE 38488818437 No Longer Active Adam Yates MD Active PROMETHAZINE HCL 25 MG TABS 1 Q. 4 hr. PRN PROM ETHAZINE HCL 74089609345 No Longer Active Adam Yates MD Active INNOPRAN XL 120 MG [id number] Take one by mouth daily 2 PROPRANOLOL HCL SR BEADS 26699147585 No Longer Active Adam Yates MD A ctive FLAGYL 500 MG TABS 1 pill by mouth three times daily, for diarrh ea METRONIDAZOLE 70090888826 No Longer Active Hope Benavidez MD PhD Active DYAZIDE 37.5-25 MG CAPS 1 qd TRIAMTERENE-HC TZ 41068061854 No Longer Active Hope Benavidez MD PhD Active PROZAC 20 MG CAPS 1 q d FLUOXETINE HCL 12980 848733 No Longer Active Hope Benavidez MD PhD Active SIMVASTATIN 40 MG TABS 1 qd SIMVASTATIN 004 94764919 No Longer Active Adam Yates MD Active MELOXICAM 15 MG TABS 1 qd MELOXICAM 7477821 5379 No Longer Active Adam Yates MD Active IMODIUM A-D 2 MG TABS 2 onset at diarrhea and prn. LOPERAMIDE HCL 01648150106 Active Hope Benavidez MD PhD Active EXCEDRIN EXTRA STRENGTH 250-250-65 MG TABS 1-2 q6h PRN headache 201 04/16/21 [id number] 37797417662 Active Hope Benavidez MD PhD Active FLAGYL 500 MG TABS 1 qid METRONIDAZOLE 85967 435684 No Longer Active Adam Yates MD Active LEVAQUIN 750 MG TABS 1 qd LEVOFLOXACIN 5486 0934405 No Longer Active Adam Yates MD Active ADULT ASPIRIN LOW STRENGTH 81 MG TBDP 1 qd A SPIRIN 92688098910 Active Hope Benavidez MD PhD Active LEVAQUIN 750 MG TABS 1 qd LEVAQUIN 750 MG T ABS 929652 LEVOFLOXACIN Inactive FLAGYL 500 MG TABS 1 qid FLAGYL 500 MG TABS 590571 METRONIDAZOLE Inactive MELOXICAM 15 MG TABS 1 qd MELOXICAM 15 MG T ABS 739037 MELOXICAM Inactive SIMVASTATIN 40 MG TABS 1 qd SIMVASTATIN 40 MG TABS 441714 SIMVASTATIN Inactive PROZAC 20 MG CAPS 1 q d PROZAC 20 MG CAPS 31 0385 FLUOXETINE HCL Inactive DYAZIDE 37.5-25 MG CAPS 1 qd DYAZIDE 37.5 -25 MG CAPS 327019 TRIAMTERENE-HCTZ Inactive INNOPRAN XL 120 MG [id number] Take one by mouth daily 2 INNOPRAN XL 120 MG [id number] PROPRANOLOL HCL SR BEADS Inactive PROMETHAZINE HCL 25 MG TABS 1 Q. 4 hr. PRN PROMETHAZINE HCL 25 MG TABS 940336 PROMETHAZINE HCL Inactive POTASSIUM CHLORIDE 20 MEQ PACK by mouth twice a day prn POTASSIUM CHLORIDE 20 MEQ PACK 962340 POTASSIUM CHLORIDE Inactive PHENADOZ 25 MG SUPP 1 every 4 hrs. PRN PHENADOZ 2 5 MG SUPP 872455 PROMETHAZINE HCL Inactive ZOFRAN 8 MG TABS 1 tab by mouth every 12 hours prn 201 05/16/09 ZOFRAN 8 MG TABS 302750 ONDANSETRON HCL Inactive OMEPRAZOLE 20 MG CPDR 1 tablet by mouth daily for GERD OMEPRAZOLE 20 MG CPDR 976998 OMEPRAZOLE Inactive CYCLOBENZAPRINE HCL 10 MG TABS 1 tablet by mouth three times daily as needed for headaches CYCLOBENZAPRINE HCL 10 MG TABS 820675 CYCLOBENZAPRINE HCL Inactive FLAGYL 500 MG TABS 1 pill by mouth three times daily, for diarrh ea FLAGYL 500 MG TABS 864130 METRONIDAZOLE Inactive Advance Directives Directive Description Start Date PERMISSION TO SHARE Immunizations Vaccine Administration Date Value Standard Stevan cription influenza immunization (Flu Vax) has been administered 4 given influenza virus vaccine, unspecified formulation TB PPD (tuberculin purified protein derivative), intra dermal administration Tubersol pneumococcal immunization administered given pneumococcal polysaccharide vaccine, 23 valent dT (Diphtheria and Tetanus) booster given Td(adult) unspecified formulation Vital Signs Date [...] Range Description Chart Maintenance: labs added to [employer] et - Chemistry magnesium, serum 2.0 mg/dL Chart Maintenance: Outside labs entered on [employer] - Chemistry sodium, serum 139 mmol/L potassium, serum 3.9 mmol/L blood glucose 85 mg/dL creatinine, serum 1.26 mg/dL aspartate aminotransferase (SGOT), serum 33 U/L alanine aminotransferase (SGPT), serum 44 U/L alkaline phosphatase, serum 127 U/L Chart Maintenance: Outside labs entered on [employer] - Hematology leukocyte count, blood 4.6 10*3/mm3 hemoglobin, blood 13.6 g/dL platelet count 162 10*3/mm3 Lab Report: Basic Metabolic Panel - Chem istry sodium, serum 136 mmol/L 679-208 9387/05/02 potassium, serum 4.1 mmol/L 3.5-5.2 chloride, serum [...] 11 .6-14.8 platelet count 102 10^3/MM^3 10*3/mm3 328-194 4767/01/08 leukocyte count, blood 9.0 10^3/MM^3 10*3/mm3 4.6-10.2 [...] 11 .6-14.8 platelet count 133 10^3/MM^3 10*3/mm3 421-713 8747/01/17 leukocyte count, blood 3.1 10^3/MM^3 10*3/mm3 4.6-10.2 [...] Panel - Chemistry sodium, serum 139 mmol/L 182-476 8067/01/21 potassium, serum 3.4 mmol/L 3.5-5.2 chloride, serum [...] 0.40 mg/dL 0.00-1.00 sodium, serum 138 mmol/L 645-015 9435/01/28 potassium, serum 3.2 mmol/L 3.5-5.2 chloride, serum [...] 0.40 mg/dL 0.00-1.00 sodium, serum 140 mmol/L 323-630 4676/02/04 potassium, serum 3.6 mmol/L 3.5-5.2 chloride, serum [...] 0.70 mg/dL 0.00-1.00 sodium, serum 136 mmol/L 712-849 3186/02/11 potassium, serum 3.1 mmol/L 3.5-5.2 chloride, serum [...] 0.50 mg/dL 0.00-1.00 sodium, serum 139 mmol/L 645-789 3794/02/18 potassium, serum 3.6 mmol/L 3.5-5.2 chloride, serum [...] 0.50 mg/dL 0.00-1.00 sodium, serum 139 mmol/L 607-896 9766/12/03 potassium, serum 3.7 mmol/L 3.5-5.2 chloride, serum 99 mmol/L 98-107 carbon dioxide, venous blood 30.6 mmol/L 21.0-32 .0 blood glucose 117 mg/dL 65-110 urea nitrogen, blood 15 mg/dL 7- creatinine, serum 1.50 mg/dL 0.60-1.30 alanine aminotransferase (SGPT), serum 27 U/L aspartate aminotransferase (SGOT), serum 24 U/L 15-37 alkaline phosphatase, serum 169 U/L 50-136 calcium, serum 9.0 mg/dL 8.5-10.1 bilirubin, serum, total 0.40 mg/dL 0.00-1.00 sodium, serum 142 mmol/L 314-841 1730/01/03 potassium, serum 3.4 mmol/L 3.5-5.2 chloride, serum [...] 0.50 mg/dL 0.00-1.00 sodium, serum 138 mmol/L 924-468 6369/08/14 potassium, serum 4.0 mmol/L 3.5-5.2 chloride, serum [...] 0.40 mg/dL 0.00-1.00 sodium, serum 140 mmol/L 782-061 6524/01/06 potassium, serum 3.4 mmol/L 3.5-5.2 chloride, serum [...] 0.40 mg/dL 0.00-1.00 sodium, serum 136 mmol/L 557-434 6189/04/03 potassium, serum 3.7 mmol/L 3.5-5.2 chloride, serum [...] 11 .6-14.8 platelet count 193 10^3/MM^3 10*3/mm3 317-877 7508/01/06 leukocyte count, blood 7.6 10^3/MM^3 10*3/mm3 4.6-10.2 [...] 11 .6-14.8 platelet count 132 10^3/MM^3 10*3/mm3 131-137 7186/01/03 leukocyte count, blood 8.1 10^3/MM^3 10*3/mm3 4.6-10.2 [...] 11 .6-14.8 platelet count 96 10^3/MM^3 10*3/mm3 224-548 8789/12/03 leukocyte count, blood 8.2 10^3/MM^3 10*3/mm3 4.6-10.2 [...] 11 .6-14.8 platelet count 98 10^3/MM^3 10*3/mm3 220-569 4767/04/03 leukocyte count, blood 5.6 10^3/MM^3 10*3/mm3 4.6-10.2 [...] 11 .6-14.8 platelet count 246 10^3/MM^3 10*3/mm3 193-731 8870/02/18 leukocyte count, blood 4.0 10^3/MM^3 10*3/mm3 4.6-10.2 [...] 11 .6-14.8 platelet count 134 10^3/MM^3 10*3/mm3 138-517 2360/02/11 leukocyte count, blood 4.8 10^3/MM^3 10*3/mm3 4.6-10.2 [...] 11 .6-14.8 platelet count 102 10^3/MM^3 10*3/mm3 848-826 1167/02/04 leukocyte count, blood 3.6 10^3/MM^3 10*3/mm3 4.6-10.2 [...] 11 .6-14.8 platelet count 70 10^3/MM^3 10*3/mm3 074-719 9811/01/28 leukocyte count, blood 4.2 10^3/MM^3 10*3/mm3 4.6-10.2 [...] 11 .6-14.8 platelet count 73 10^3/MM^3 10*3/mm3 077-216 1925/01/21 leukocyte count, blood 4.9 10^3/MM^3 10*3/mm3 4.6-10.2 [...] Diff/Morphology - Chemistry sodium, serum 141 mmol/L 331-007 4914/01/14 potassium, serum 3.9 mmol/L 3.5-5.2 chloride, serum [...] 0.50 mg/dL 0.00-1.00 sodium, serum 141 mmol/L 136-006 0061/11/25 potassium, serum 3.9 mmol/L 3.5-5.2 chloride, serum [...] 0.50 mg/dL 0.00-1.00 sodium, serum 140 mmol/L 452-361 0618/12/17 potassium, serum 3.3 mmol/L 3.5-5.2 chloride, serum [...] 0.40 mg/dL 0.00-1.00 sodium, serum 138 mmol/L 384-328 8279/12/24 potassium, serum 3.7 mmol/L 3.5-5.2 chloride, serum [...] Manual Diff/Morphology - Hematology leukocyte count, blood 18.6 10^3/MM^3 10*3/mm3 4.6-10.2 [...] 11 .6-14.8 platelet count 75 10^3/MM^3 10*3/mm3 662-335 9051/12/24 leukocyte count, blood 14.0 10^3/MM^3 10*3/mm3 4.6-10.2 [...] 11 .6-14.8 platelet count 66 10^3/MM^3 10*3/mm3 493-527 7997/11/25 leukocyte count, blood 21.1 10^3/MM^3 10*3/mm3 4.6-10.2 [...] 11 .6-14.8 platelet count 46 10^3/MM^3 10*3/mm3 723-729 9643/01/14 leukocyte count, blood 6.2 10^3/MM^3 10*3/mm3 4.6-10.2 [...] - Chem istry sodium, serum 142 mmol/L 417-807 0068/12/10 potassium, serum 3.9 mmol/L 3.5-5.2 chloride, serum [...] Diff/Morphology - Chemistry sodium, serum 142 mmol/L 703-669 2934/12/31 potassium, serum 3.6 mmol/L 3.5-5.2 chloride, serum 101 mmol/L 98-107 carbon dioxide, venous blood 30.0 mmol/L 21.0-32 .0 blood glucose 101 mg/dL 65-110 urea nitrogen, blood 36 mg/dL 7-18 creatinine, serum 2.20 mg/dL 0.60-1.30 alanine aminotransferase (SGPT), serum 19 U/L 78 aspartate aminotransferase (SGOT), serum 24 [...] mg/dL 30-200 cholesterol, serum 209 mg/dL 130-200 Encounters Code Encounter Date Provider Facility CPT-28393 Level 4 Est. Patient 20:04:51 CDT Hope cohn MD PhD [facility] CPT-41227 Level 3 New Patient 01:46:11 INFECTION PREVENTION SPECIALIST Hope landers MD PhD [facility] Procedures Code Procedure Name Date Entry Date Standard Desc ription CPT-G0008 Administration of Influenza Virus Vaccine 13:36:47 CDT CPT-76030 Fluzone High-Dose Intramuscular Suspension 11/15 13:36:47 CDT CPT-J0897 Prolia 60 mg 08:50:41 CDT CPT-33859 Abx/Therapy Injection 08:50:41 CDT CPT-72548 Bone Density 12:06:12 CDT CPT-38358 Bone Density 08:54:40 CDT CPT-OV Office Visit 15:37:02 CDT CPT-08239 Postop F/U Visit 15:47:49 CDT CPT-48643 Postop F/U Visit 15:21:02 CDT [facility]PT-[facility] Transitional Care Mgmt-High 07:52:27 CDT 20 20/06/01 CPT-22379 Venipuncture Draw Fee 13:51:18 CDT CPT-33395 Venipuncture Draw Fee 10:14:55 INFECTION PREVENTION SPECIALIST CPT-27281 Venipuncture Draw Fee 13:39:45 INFECTION PREVENTION SPECIALIST CPT-OV Office Visit 15:11:22 INFECTION PREVENTION SPECIALIST CPT-81779 Venipuncture Draw Fee 09:20:49 INFECTION PREVENTION SPECIALIST CPT-22186 Venipuncture Draw Fee 16:52:15 INFECTION PREVENTION SPECIALIST CPT-72425 Venipuncture Draw Fee 10:37:24 INFECTION PREVENTION SPECIALIST CPT-15602 Venipuncture Draw Fee 08:21:21 INFECTION PREVENTION SPECIALIST CPT-96650 Venipuncture Draw Fee 08:30:20 INFECTION PREVENTION SPECIALIST CPT-10218 Venipuncture Draw Fee 14:53:21 INFECTION PREVENTION SPECIALIST CPT-59805 Venipuncture Draw Fee 09:40:56 INFECTION PREVENTION SPECIALIST CPT-82552 Venipuncture Draw Fee 10:30:47 INFECTION PREVENTION SPECIALIST CPT-30860 Venipuncture Draw Fee 10:46:17 INFECTION PREVENTION SPECIALIST CPT-85383 Venipuncture Draw Fee 11:12:45 INFECTION PREVENTION SPECIALIST CPT-83548 Venipuncture Draw Fee 09:53:33 INFECTION PREVENTION SPECIALIST CPT-81763 Venipuncture Draw Fee 11:53:51 INFECTION PREVENTION SPECIALIST CPT-88540 Venipuncture Draw Fee 10:33:50 INFECTION PREVENTION SPECIALIST CPT-07934 Venipuncture Draw Fee 10:05:01 INFECTION PREVENTION SPECIALIST CPT-99092 Venipuncture Draw Fee 14:32:52 INFECTION PREVENTION SPECIALIST CPT-81109 Venipuncture Draw Fee 09:46:13 INFECTION PREVENTION SPECIALIST CPT-75383 Venipuncture Draw Fee 11:34:27 INFECTION PREVENTION SPECIALIST CPT-14006 Venipuncture Draw Fee 13:17:16 INFECTION PREVENTION SPECIALIST CPT-51218 Venipuncture Draw Fee 12:05:39 CDT CPT-15654 Venipuncture Draw Fee 12:49:12 CDT CPT-15780 Venipuncture Draw Fee 12:37:18 CDT CPT-14669 Venipuncture Draw Fee 10:57:11 CDT CPT-10415 Venipuncture Draw Fee 13:47:40 CDT CPT-68270 Venipuncture Draw Fee 10:02:17 CDT CPT-12516 TB Tubersol 17:32:32 CDT CPT-OV Office Visit 16:21:53 CDT CPT-OV Office Visit 15:49:22 CDT CPT-OV Office Visit 17:16:31 CDT CPT-OV Office Visit 10:43:31 CDT
--- OUTSIDE RECORDS SUMMARY | 2019-02-09 13:24 | XMS REPORT | Clinical Summary ---
Author Author Renaldo, Florecita Munoz Organization [facility] Address Unknown Phone Allergies, Adverse Reactions, [...] mouth every 12 hours prn ONDANSETRON HCL 81635898300 Active Laura Elder Active FLAGYL 500 MG TABS 1 pill by mouth three times daily, for diarrh ea METRONIDAZOLE 12549291767 No Longer Active Hope Benavidez MD PhD Active MAGNESIUM GLUCONATE 250 MG TABS 1 tab daily MAG NESIUM GLUCONATE 19818620677 Active Hope Benavidez MD PhD Active DYAZIDE 37.5-25 MG CAPS 1 qd TRIAMTERENE-HC TZ 48313338280 No Longer Active Hope Benavidez MD PhD Active PROZAC 20 MG CAPS 1 q d FLUOXETINE HCL 86953 529549 No Longer Active Hope Benavidez MD PhD Active INNOPRAN XL 120 MG [id number]-LDM Take one by mouth daily PROPRANOLOL HCL SR BEADS 59643529010 Active Hope Benavidez MD PhD Active POTASSIUM CHLORIDE 20 MEQ PACK by mouth twice a day prn POTASSIUM CHLORIDE 10466280482 Active Adam Yates MD Activ e CYCLOBENZAPRINE HCL 10 MG TABS 1 tablet by mouth three times daily as needed for headaches CYCLOBENZAPRINE HCL 94796827401 Active Selena Yates MD Active SIMVASTATIN 40 MG TABS 1 qd SIMVASTATIN 004 39049068 No Longer Active Adam Yates MD Active MELOXICAM 15 MG TABS 1 qd MELOXICAM 0648673 1922 No Longer Active Adam Yates MD Active ATENOLOL 50 MG TABS 1/2 tab q other day ATENOLOL 84294662714 Active Hope Benavidez MD PhD Active OMEPRAZOLE 20 MG CPDR 1 tablet by mouth daily for GERD OMEPRAZOLE 20050117832 Active Hope Benavidez MD PhD Active IMODIUM A-D 2 MG TABS 2 onset at diarrhea and prn. LOPERAMIDE HCL 57908097309 Active Hope Benavidez MD PhD Active PHENADOZ 25 MG SUPP 1 every 4 hrs. PRN PROMETHAZINE HCL 33571304757 Active Hope Benavidez MD PhD Active PROMETHAZINE HCL 25 MG TABS 1 Q. 4 hr. PRN PROMETH AZINE HCL 12215007931 Active Hope Benavidez MD PhD Active EXCEDRIN EXTRA STRENGTH 250-250-65 MG TABS 1-2 q6h PRN headache 201 04/16/21 [id number] 22136489011 Active Hope Benavidez MD PhD Active FLAGYL 500 MG TABS 1 qid METRONIDAZOLE 00156 197604 No Longer Active Adam Yates MD Active LEVAQUIN 750 MG TABS 1 qd LEVOFLOXACIN 5486 2700641 No Longer Active Adam Yates MD Active ADULT ASPIRIN LOW STRENGTH 81 MG TBDP 1 qd A SPIRIN 53272291303 Active Hope Benavidez MD PhD Active LEVAQUIN 750 MG TABS 1 qd LEVAQUIN 750 MG T ABS 812150 LEVOFLOXACIN Inactive FLAGYL 500 MG TABS 1 qid FLAGYL 500 MG TABS 703480 METRONIDAZOLE Inactive MELOXICAM 15 MG TABS 1 qd MELOXICAM 15 MG T ABS 598873 MELOXICAM Inactive SIMVASTATIN 40 MG TABS 1 qd SIMVASTATIN 40 MG TABS 345464 SIMVASTATIN Inactive PROZAC 20 MG CAPS 1 q d PROZAC 20 MG CAPS 31 0385 FLUOXETINE HCL Inactive DYAZIDE 37.5-25 MG CAPS 1 qd DYAZIDE 37.5 -25 MG CAPS 844955 TRIAMTERENE-HCTZ Inactive FLAGYL 500 MG TABS 1 pill by mouth three times daily, for diarrh ea FLAGYL 500 MG TABS 608342 METRONIDAZOLE Inactive Advance Directives Directive Description Start [...] - Chem istry sodium, serum 137 mmol/L 470-599 1100/11/01 potassium, serum 3.7 mmol/L 3.5-5.2 chloride, serum 100 mmol/L 98-107 carbon dioxide, venous blood 31.8 mmol/L 21.0-32 .0 blood glucose 98 mg/dL 65-110 calcium, serum 8.6 mg/dL 8.5-10.1 urea nitrogen, blood 23 mg/dL 7-18 creatinine, serum 1.50 mg/dL 0.60-1.30 sodium, serum 136 mmol/L 408-807 8267/05/02 potassium, serum 4.1 mmol/L 3.5-5.2 chloride, serum [...] 11 .6-14.8 platelet count 133 10^3/MM^3 10*3/mm3 902-439 2996/01/17 leukocyte count, blood 3.1 10^3/MM^3 10*3/mm3 4.6-10.2 [...] 11 .6-14.8 platelet count 22 10^3/MM^3 10*3/mm3 590-859 5863/11/19 leukocyte count, blood 10.4 10^3/MM^3 10*3/mm3 4.6-10.2 [...] Verified By Repeat Analysis 10^3/mm ^3 10*3/mm3 169-629 8364/12/10 leukocyte count, blood 7.8 10^3/MM^3 10*3/mm3 4.6-10.2 [...] Panel - Chemistry sodium, serum 139 mmol/L 011-441 7564/12/03 potassium, serum 3.7 mmol/L 3.5-5.2 chloride, serum [...] 0.40 mg/dL 0.00-1.00 sodium, serum 137 mmol/L 801-136 9711/10/01 potassium, serum 3.5 mmol/L 3.5-5.2 chloride, serum [...] 0.60 mg/dL 0.00-1.00 sodium, serum 139 mmol/L 713-833 0352/10/17 potassium, serum 3.1 mmol/L 3.5-5.2 chloride, serum [...] serum, total 0.30 mg/dL 0.00-1.00 sodium, serum 136 mmol/L 360-327 7928/10/08 potassium, serum 3.1 mmol/L 3.5-5.2 chloride, serum [...] 0.60 mg/dL 0.00-1.00 sodium, serum 139 mmol/L 437-085 0196/01/21 potassium, serum 3.4 mmol/L 3.5-5.2 chloride, serum [...] 0.40 mg/dL 0.00-1.00 sodium, serum 138 mmol/L 892-578 9309/01/28 potassium, serum 3.2 mmol/L 3.5-5.2 chloride, serum [...] 0.40 mg/dL 0.00-1.00 sodium, serum 140 mmol/L 916-808 3524/02/04 potassium, serum 3.6 mmol/L 3.5-5.2 chloride, serum 100 mmol/L 98-107 carbon dioxide, venous blood 32.9 mmol/L 21.0-32 .0 blood glucose 93 mg/dL 65-110 urea nitrogen, blood 15 mg/dL 7-18 creatinine, serum 1.00 mg/dL 0.60-1.30 alanine aminotransferase (SGPT), serum 14 U/L - aspartate aminotransferase (SGOT), serum 17 U/L -37 alkaline phosphatase, serum 118 U/L 50-136 calcium, serum 9.1 mg/dL 8.5-10.1 bilirubin, serum, total 0.70 mg/dL 0.00-1.00 sodium, serum 142 mmol/L 044-929 3680/01/03 potassium, serum 3.4 mmol/L 3.5-5.2 chloride, serum [...] 0.50 mg/dL 0.00-1.00 sodium, serum 140 mmol/L 292-138 5257/01/06 potassium, serum 3.4 mmol/L 3.5-5.2 chloride, serum [...] 0.40 mg/dL 0.00-1.00 sodium, serum 136 mmol/L 864-593 7051/04/03 potassium, serum 3.7 mmol/L 3.5-5.2 chloride, serum [...] 0.40 mg/dL 0.00-1.00 sodium, serum 136 mmol/L 389-296 0853/02/11 potassium, serum 3.1 mmol/L 3.5-5.2 chloride, serum [...] 0.50 mg/dL 0.00-1.00 sodium, serum 139 mmol/L 233-660 1474/02/18 potassium, serum 3.6 mmol/L 3.5-5.2 chloride, serum [...] 11 .6-14.8 platelet count 246 10^3/MM^3 10*3/mm3 380-270 3618/02/18 leukocyte count, blood 4.0 10^3/MM^3 10*3/mm3 4.6-10.2 [...] 11 .6-14.8 platelet count 134 10^3/MM^3 10*3/mm3 302-908 1443/10/17 mean corpuscular hemoglobin, RBC 28.7 pg 27. 0-31.2 mean corpuscular hemoglobin concentration, RBC 33.1 G/DL % 31.8-35.4 red blood cell distribution width 16.3 % 11 .6-14.8 platelet count 232 10^3/MM^3 10*3/mm3 232-396 1437/01/03 leukocyte count, blood 8.1 10^3/MM^3 10*3/mm3 4.6-10.2 [...] 11 .6-14.8 platelet count 96 10^3/MM^3 10*3/mm3 175-604 1315/01/06 leukocyte count, blood 7.6 10^3/MM^3 10*3/mm3 4.6-10.2 [...] 11 .6-14.8 platelet count 132 10^3/MM^3 10*3/mm3 772-567 8949/02/11 leukocyte count, blood 4.8 10^3/MM^3 10*3/mm3 4.6-10.2 [...] 11 .6-14.8 platelet count 102 10^3/MM^3 10*3/mm3 067-070 4464/02/04 leukocyte count, blood 3.6 10^3/MM^3 10*3/mm3 4.6-10.2 [...] 11 .6-14.8 platelet count 70 10^3/MM^3 10*3/mm3 821-124 6174/01/28 leukocyte count, blood 4.2 10^3/MM^3 10*3/mm3 4.6-10.2 [...] 11 .6-14.8 platelet count 73 10^3/MM^3 10*3/mm3 146-119 0815/01/21 leukocyte count, blood 4.9 10^3/MM^3 10*3/mm3 4.6-10.2 [...] .6-14.8 platelet count 38 recounted 10^3/mm^3 10*3/mm3 931-789 3612/10/17 leukocyte count, blood 12.0 10^3/MM^3 10*3/mm3 4.6-10.2 neutrophils as percent of blood leukocytes 64.3 % 42.2-75.2 monocytes as percent of blood leukocytes 10.4 % 1.7-9.3 lymphocytes as percent of blood leukocytes 21.3 % 20.5-51.1 erythrocyte (RBC) count 4.18 10^6/MM^3 10*6/mm3 4.04-5.4 8 hemoglobin, blood 12.0 g/dL 12.0-16.0 hematocrit, blood 36.2 % 36.0-46.0 mean corpuscular volume, RBC 87 fL 80-97 leukocyte count, blood 8.3 10^3/MM^3 10*3/mm3 4.6-10.2 [...] 11 .6-14.8 platelet count 378 10^3/MM^3 10*3/mm3 948-857 6700/10/08 leukocyte count, blood 2.9 10^3/MM^3 10*3/mm3 4.6-10.2 [...] 11 .6-14.8 platelet count 229 10^3/MM^3 10*3/mm3 698-212 0331/12/03 leukocyte count, blood 8.2 10^3/MM^3 10*3/mm3 4.6-10.2 [...] Diff/Morphology - Chemistry sodium, serum 141 mmol/L 171-097 3223/11/25 potassium, serum 3.9 mmol/L 3.5-5.2 chloride, serum [...] 0.50 mg/dL 0.00-1.00 sodium, serum 137 mmol/L 535-950 0826/11/12 potassium, serum 3.2 mmol/L 3.5-5.2 chloride, serum [...] 0.40 mg/dL 0.00-1.00 sodium, serum 140 mmol/L 895-270 0093/12/17 potassium, serum 3.3 mmol/L 3.5-5.2 chloride, serum [...] 0.40 mg/dL 0.00-1.00 sodium, serum 138 mmol/L 704-710 0814/12/24 potassium, serum 3.7 mmol/L 3.5-5.2 chloride, serum [...] 0.50 mg/dL 0.00-1.00 sodium, serum 138 mmol/L 609-457 4865/11/05 potassium, serum 3.9 mmol/L 3.5-5.2 chloride, serum [...] 0.40 mg/dL 0.00-1.00 sodium, serum 135 mmol/L 283-698 0441/10/22 potassium, serum 3.0 mmol/L 3.5-5.2 chloride, serum [...] 0.50 mg/dL 0.00-1.00 sodium, serum 128 mmol/L 729-625 1132/10/29 potassium, serum 2.6 mmol/L 3.5-5.2 chloride, serum [...] 0.50 mg/dL 0.00-1.00 sodium, serum 141 mmol/L 279-937 4155/01/14 potassium, serum 3.9 mmol/L 3.5-5.2 chloride, serum [...] 11 .6-14.8 platelet count 22 10^3/MM^3 10*3/mm3 383-299 6271/10/22 leukocyte count, blood 14.7 10^3/MM^3 10*3/mm3 4.6-10.2 [...] 11 .6-14.8 platelet count 428 10^3/MM^3 10*3/mm3 336-223 3996/10/29 leukocyte count, blood 26.3 10^3/MM^3 10*3/mm3 4.6-10.2 [...] 11 .6-14.8 platelet count 268 10^3/MM^3 10*3/mm3 762-543 1368/11/12 leukocyte count, blood 12.1 10^3/MM^3 10*3/mm3 4.6-10.2 [...] 11 .6-14.8 platelet count 157 10^3/MM^3 10*3/mm3 211-341 7660/11/05 leukocyte count, blood 16.4 10^3/MM^3 10*3/mm3 4.6-10.2 [...] 11 .6-14.8 platelet count 215 10^3/MM^3 10*3/mm3 032-597 7787/12/24 leukocyte count, blood 14.0 10^3/MM^3 10*3/mm3 4.6-10.2 [...] 11 .6-14.8 platelet count 66 10^3/MM^3 10*3/mm3 479-164 2687/12/17 leukocyte count, blood 18.6 10^3/MM^3 10*3/mm3 4.6-10.2 [...] 11 .6-14.8 platelet count 75 10^3/MM^3 10*3/mm3 880-623 9967/11/25 leukocyte count, blood 21.1 10^3/MM^3 10*3/mm3 4.6-10.2 [...] 11 .6-14.8 platelet count 413 10^3/MM^3 10*3/mm3 399-026 0696/01/16 leukocyte count, blood 3.6 10^3/MM^3 10*3/mm3 4.6-10.2 [...] - Chem istry sodium, serum 141 mmol/L 773-373 7616/11/19 potassium, serum 3.9 mmol/L 3.5-5.2 chloride, serum [...] 0.50 mg/dL 0.00-1.00 sodium, serum 142 mmol/L 860-666 9481/12/10 potassium, serum 3.9 mmol/L 3.5-5.2 chloride, serum [...] Diff/Morphology - Chemistry sodium, serum 142 mmol/L 927-112 6869/12/31 potassium, serum 3.6 mmol/L 3.5-5.2 chloride, serum [...] 3.5-5.2 Encounters Code Encounter Date Provider Facility CPT-96255 Level 3 New Patient 01:46:11 [employer] Hope landers MD PhD [facility] Procedures Code Procedure Name Date Entry Date Standard Desc ription CPT-31863 Postop F/U Visit 15:47:49 CDT CPT-38446 Postop F/U Visit 15:21:02 CDT CPT-TCM Transitional Care Mgmt-High 07:52:27 CDT 20 20/06/01 CPT-50683 Venipuncture Draw Fee 13:51:18 CDT CPT-76805 Venipuncture Draw Fee 10:14:55 [employer] CPT-93010 Venipuncture Draw Fee 13:39:45 [employer] CPT-OV Office Visit 15:11:22 [employer] CPT-38445 Venipuncture Draw Fee 09:20:49 [employer] CPT-61668 Venipuncture Draw Fee 16:52:15 [employer] CPT-43311 Venipuncture Draw Fee 10:37:24 [employer] CPT-37104 Venipuncture Draw Fee 08:21:21 [employer] CPT-65273 Venipuncture Draw Fee 08:30:20 [employer] CPT-90681 Venipuncture Draw Fee 14:53:21 [employer] CPT-34382 Venipuncture Draw Fee 09:40:56 [employer] CPT-63264 Venipuncture Draw Fee 10:30:47 [employer] CPT-67527 Venipuncture Draw Fee 10:46:17 [employer] CPT-76047 Venipuncture Draw Fee 11:12:45 [employer] CPT-56329 Venipuncture Draw Fee 09:53:33 [employer] CPT-64486 Venipuncture Draw Fee 11:53:51 [employer] CPT-15341 Venipuncture Draw Fee 10:33:50 [employer] CPT-24422 Venipuncture Draw Fee 10:05:01 [employer] CPT-80781 Venipuncture Draw Fee 14:32:52 [employer] CPT-71825 Venipuncture Draw Fee 09:46:13 [employer] CPT-10307 Venipuncture Draw Fee 11:34:27 [employer] CPT-72579 Venipuncture Draw Fee 13:17:16 [employer] CPT-47453 Venipuncture Draw Fee 12:05:39 CDT CPT-99330 Venipuncture Draw Fee 12:49:12 CDT CPT-87374 Venipuncture Draw Fee 12:37:18 CDT CPT-82185 Venipuncture Draw Fee 10:57:11 CDT CPT-69659 Venipuncture Draw Fee 13:47:40 CDT CPT-81142 Venipuncture Draw Fee 10:02:17 CDT CPT-06129 TB Tubersol 17:32:32 CDT CPT-OV Office Visit 16:21:53 CDT CPT-OV Office Visit 15:49:22 CDT CPT-OV Office Visit 17:16:31 CDT CPT-OV Office Visit 10:43:31 CDT
--- OUTSIDE RECORDS SUMMARY | 2019-02-09 13:24 | XMS REPORT | Clinical Summary ---
Author Author Renaldo, Florecita Munoz Organization [facility] Address Unknown Phone Allergies, Adverse Reactions, Alerts [...] mouth every 12 hours prn ONDANSETRON HCL 73140844013 Active Laura Elder Active FLAGYL 500 MG TABS 1 pill by mouth three times daily, for diarrh ea METRONIDAZOLE 28461918391 Active Hope Benavidez MD PhD A ctive MAGNESIUM GLUCONATE 250 MG TABS 1 tab daily MAG NESIUM GLUCONATE 60032118648 Active Hope Benavidez MD PhD Active DYAZIDE 37.5-25 MG CAPS 1 qd TRIAMTERENE-HC TZ 83506713849 No Longer Active Hope Benavidez MD PhD Active PROZAC 20 MG CAPS 1 q d FLUOXETINE HCL 43041 974016 No Longer Active Hope Benavidez MD PhD Active INNOPRAN XL 120 MG [id number]-OGF Take one by mouth daily PROPRANOLOL HCL SR BEADS 99747810981 Active Hope Benavidez MD PhD Active POTASSIUM CHLORIDE 20 MEQ PACK by mouth twice a day prn POTASSIUM CHLORIDE 44313028981 Active Adam Yates MD Activ e CYCLOBENZAPRINE HCL 10 MG TABS 1 tablet by mouth three times daily as needed for headaches CYCLOBENZAPRINE HCL 15388318663 Active Selena Yates MD Active SIMVASTATIN 40 MG TABS 1 qd SIMVASTATIN 004 68839337 No Longer Active dAam Yates MD Active MELOXICAM 15 MG TABS 1 qd MELOXICAM 7152725 6198 No Longer Active Adam Yates MD Active ATENOLOL 50 MG TABS 1/2 tab q other day ATENOLOL 75487325864 Active Hope Benavidez MD PhD Active OMEPRAZOLE 20 MG CPDR 1 tablet by mouth daily for GERD OMEPRAZOLE 80021103896 Active Hope Benavidez MD PhD Active IMODIUM A-D 2 MG TABS 2 onset at diarrhea and prn. LOPERAMIDE HCL 97180826979 Active Hope Benavidez MD PhD Active PHENADOZ 25 MG SUPP 1 every 4 hrs. PRN PROMETHAZINE HCL 05245907047 Active Hope Benavidez MD PhD Active PROMETHAZINE HCL 25 MG TABS 1 Q. 4 hr. PRN PROMETH AZINE HCL 14139255151 Active Hope Benavidez MD PhD Active EXCEDRIN EXTRA STRENGTH 250-250-65 MG TABS 1-2 q6h PRN headache 201 04/16/21 [id number] 81229559256 Active Hope Benavidez MD PhD Active FLAGYL 500 MG TABS 1 qid METRONIDAZOLE 79695 150195 No Longer Active Adam Yates MD Active LEVAQUIN 750 MG TABS 1 qd LEVOFLOXACIN 5486 9336821 No Longer Active Adam Yates MD Active ADULT ASPIRIN LOW STRENGTH 81 MG TBDP 1 qd A SPIRIN 07817418723 Active Hope Benavidez MD PhD Active LEVAQUIN 750 MG TABS 1 qd LEVAQUIN 750 MG T ABS 775792 LEVOFLOXACIN Inactive FLAGYL 500 MG TABS 1 qid FLAGYL 500 MG TABS 087856 METRONIDAZOLE Inactive MELOXICAM 15 MG TABS 1 qd MELOXICAM 15 MG T ABS 508337 MELOXICAM Inactive SIMVASTATIN 40 MG TABS 1 qd SIMVASTATIN 40 MG TABS 890015 SIMVASTATIN Inactive PROZAC 20 MG CAPS 1 q d PROZAC 20 MG CAPS 31 0385 FLUOXETINE HCL Inactive DYAZIDE 37.5-25 MG CAPS 1 qd DYAZIDE 37.5 -25 MG CAPS 055088 TRIAMTERENE-HCTZ Inactive Advance Directives Directive Description Start [...] - Chem istry sodium, serum 137 mmol/L 049-068 1280/11/01 potassium, serum 3.7 mmol/L 3.5-5.2 chloride, serum 100 mmol/L 98-107 carbon dioxide, venous blood 31.8 mmol/L 21.0-32 .0 blood glucose 98 mg/dL 65-110 calcium, serum 8.6 mg/dL 8.5-10.1 urea nitrogen, blood 23 mg/dL 7-18 creatinine, serum 1.50 mg/dL 0.60-1.30 sodium, serum 136 mmol/L 002-847 5449/05/02 potassium, serum 4.1 mmol/L 3.5-5.2 chloride, serum [...] 11 .6-14.8 platelet count 133 10^3/MM^3 10*3/mm3 940-569 0536/01/17 leukocyte count, blood 3.1 10^3/MM^3 10*3/mm3 4.6-10.2 [...] 11 .6-14.8 platelet count 22 10^3/MM^3 10*3/mm3 522-796 2331/11/19 leukocyte count, blood 10.4 10^3/MM^3 10*3/mm3 4.6-10.2 [...] Verified By Repeat Analysis 10^3/mm ^3 10*3/mm3 303-222 0053/12/10 leukocyte count, blood 7.8 10^3/MM^3 10*3/mm3 4.6-10.2 [...] Panel - Chemistry sodium, serum 139 mmol/L 471-963 6243/12/03 potassium, serum 3.7 mmol/L 3.5-5.2 chloride, serum [...] 0.40 mg/dL 0.00-1.00 sodium, serum 137 mmol/L 176-718 1139/10/01 potassium, serum 3.5 mmol/L 3.5-5.2 chloride, serum [...] 0.60 mg/dL 0.00-1.00 sodium, serum 136 mmol/L 214-431 9428/10/08 potassium, serum 3.1 mmol/L 3.5-5.2 chloride, serum [...] 0.60 mg/dL 0.00-1.00 sodium, serum 139 mmol/L 024-102 6896/10/17 potassium, serum 3.1 mmol/L 3.5-5.2 chloride, serum [...] 0.30 mg/dL 0.00-1.00 sodium, serum 139 mmol/L 242-631 4549/01/21 potassium, serum 3.4 mmol/L 3.5-5.2 chloride, serum [...] 0.40 mg/dL 0.00-1.00 sodium, serum 138 mmol/L 802-166 0119/01/28 potassium, serum 3.2 mmol/L 3.5-5.2 chloride, serum [...] 0.40 mg/dL 0.00-1.00 sodium, serum 140 mmol/L 236-851 7763/02/04 potassium, serum 3.6 mmol/L 3.5-5.2 chloride, serum [...] 0.70 mg/dL 0.00-1.00 sodium, serum 142 mmol/L 296-597 9379/01/03 potassium, serum 3.4 mmol/L 3.5-5.2 chloride, serum 101 mmol/L 98-107 carbon dioxide, venous blood 31.9 mmol/L 21.0-32 .0 blood glucose 98 mg/dL 65-110 urea nitrogen, blood 23 mg/dL 7-18 creatinine, serum 1.60 mg/dL 0.60-1.30 alanine aminotransferase (SGPT), serum 17 U/L aspartate aminotransferase (SGOT), serum 21 U/L -37 alkaline phosphatase, serum 163 U/L 50-136 calcium, serum 8.5 mg/dL 8.5-10.1 bilirubin, serum, total 0.50 mg/dL 0.00-1.00 sodium, serum 140 mmol/L 123-966 1173/01/06 potassium, serum 3.4 mmol/L 3.5-5.2 chloride, serum [...] 0.40 mg/dL 0.00-1.00 sodium, serum 136 mmol/L 182-479 2931/04/03 potassium, serum 3.7 mmol/L 3.5-5.2 chloride, serum [...] 0.40 mg/dL 0.00-1.00 sodium, serum 136 mmol/L 854-312 5517/02/11 potassium, serum 3.1 mmol/L 3.5-5.2 chloride, serum [...] 0.50 mg/dL 0.00-1.00 sodium, serum 139 mmol/L 851-434 3231/02/18 potassium, serum 3.6 mmol/L 3.5-5.2 chloride, serum [...] 11 .6-14.8 platelet count 246 10^3/MM^3 10*3/mm3 942-114 0830/02/18 leukocyte count, blood 4.0 10^3/MM^3 10*3/mm3 4.6-10.2 [...] 11 .6-14.8 platelet count 134 10^3/MM^3 10*3/mm3 127-741 5390/01/03 leukocyte count, blood 8.1 10^3/MM^3 10*3/mm3 4.6-10.2 [...] 11 .6-14.8 platelet count 96 10^3/MM^3 10*3/mm3 190-521 0498/01/06 leukocyte count, blood 7.6 10^3/MM^3 10*3/mm3 4.6-10.2 [...] 11 .6-14.8 platelet count 132 10^3/MM^3 10*3/mm3 811-507 1655/02/11 leukocyte count, blood 4.8 10^3/MM^3 10*3/mm3 4.6-10.2 [...] 11 .6-14.8 platelet count 102 10^3/MM^3 10*3/mm3 562-553 2690/02/04 leukocyte count, blood 3.6 10^3/MM^3 10*3/mm3 4.6-10.2 [...] 11 .6-14.8 platelet count 70 10^3/MM^3 10*3/mm3 799-445 3355/01/28 leukocyte count, blood 4.2 10^3/MM^3 10*3/mm3 4.6-10.2 [...] 11 .6-14.8 platelet count 73 10^3/MM^3 10*3/mm3 831-014 4327/01/21 leukocyte count, blood 4.9 10^3/MM^3 10*3/mm3 4.6-10.2 [...] .6-14.8 platelet count 38 recounted 10^3/mm^3 10*3/mm3 151-497 1874/10/08 leukocyte count, blood 2.9 10^3/MM^3 10*3/mm3 4.6-10.2 [...] 11 .6-14.8 platelet count 229 10^3/MM^3 10*3/mm3 571-058 2973/10/17 leukocyte count, blood 12.0 10^3/MM^3 10*3/mm3 4.6-10.2 [...] 11 .6-14.8 platelet count 232 10^3/MM^3 10*3/mm3 849-014 7460/10/01 leukocyte count, blood 8.3 10^3/MM^3 10*3/mm3 4.6-10.2 [...] 11 .6-14.8 platelet count 378 10^3/MM^3 10*3/mm3 321-045 0313/12/03 leukocyte count, blood 8.2 10^3/MM^3 10*3/mm3 4.6-10.2 [...] Diff/Morphology - Chemistry sodium, serum 141 mmol/L 500-351 2441/11/25 potassium, serum 3.9 mmol/L 3.5-5.2 chloride, serum [...] 0.50 mg/dL 0.00-1.00 sodium, serum 137 mmol/L 217-883 8107/11/12 potassium, serum 3.2 mmol/L 3.5-5.2 chloride, serum [...] 0.40 mg/dL 0.00-1.00 sodium, serum 140 mmol/L 721-523 1677/12/17 potassium, serum 3.3 mmol/L 3.5-5.2 chloride, serum [...] 0.40 mg/dL 0.00-1.00 sodium, serum 138 mmol/L 930-559 3945/12/24 potassium, serum 3.7 mmol/L 3.5-5.2 chloride, serum [...] 0.50 mg/dL 0.00-1.00 sodium, serum 138 mmol/L 058-397 0555/11/05 potassium, serum 3.9 mmol/L 3.5-5.2 chloride, serum [...] 0.40 mg/dL 0.00-1.00 sodium, serum 135 mmol/L 317-756 9160/10/22 potassium, serum 3.0 mmol/L 3.5-5.2 chloride, serum [...] 0.50 mg/dL 0.00-1.00 sodium, serum 128 mmol/L 024-779 6289/10/29 potassium, serum 2.6 mmol/L 3.5-5.2 chloride, serum [...] 0.50 mg/dL 0.00-1.00 sodium, serum 141 mmol/L 231-864 8774/01/14 potassium, serum 3.9 mmol/L 3.5-5.2 chloride, serum [...] 11 .6-14.8 platelet count 22 10^3/MM^3 10*3/mm3 237-034 5556/10/22 leukocyte count, blood 14.7 10^3/MM^3 10*3/mm3 4.6-10.2 [...] 11 .6-14.8 platelet count 428 10^3/MM^3 10*3/mm3 854-824 5411/10/29 leukocyte count, blood 26.3 10^3/MM^3 10*3/mm3 4.6-10.2 [...] 11 .6-14.8 platelet count 268 10^3/MM^3 10*3/mm3 914-778 2668/11/12 leukocyte count, blood 12.1 10^3/MM^3 10*3/mm3 4.6-10.2 [...] 11 .6-14.8 platelet count 157 10^3/MM^3 10*3/mm3 024-394 2023/11/05 leukocyte count, blood 16.4 10^3/MM^3 10*3/mm3 4.6-10.2 [...] 11 .6-14.8 platelet count 215 10^3/MM^3 10*3/mm3 041-229 6788/12/24 leukocyte count, blood 14.0 10^3/MM^3 10*3/mm3 4.6-10.2 [...] 11 .6-14.8 platelet count 66 10^3/MM^3 10*3/mm3 368-501 8505/12/17 leukocyte count, blood 18.6 10^3/MM^3 10*3/mm3 4.6-10.2 [...] 11 .6-14.8 platelet count 75 10^3/MM^3 10*3/mm3 254-118 8928/11/25 leukocyte count, blood 21.1 10^3/MM^3 10*3/mm3 4.6-10.2 [...] 11 .6-14.8 platelet count 413 10^3/MM^3 10*3/mm3 010-551 7518/01/16 leukocyte count, blood 3.6 10^3/MM^3 10*3/mm3 4.6-10.2 [...] - Chem istry sodium, serum 141 mmol/L 912-165 3980/11/19 potassium, serum 3.9 mmol/L 3.5-5.2 chloride, serum [...] 0.50 mg/dL 0.00-1.00 sodium, serum 142 mmol/L 421-428 3947/12/10 potassium, serum 3.9 mmol/L 3.5-5.2 chloride, serum [...] Diff/Morphology - Chemistry sodium, serum 142 mmol/L 274-767 1085/12/31 potassium, serum 3.6 mmol/L 3.5-5.2 chloride, serum [...] 3.5-5.2 Encounters Code Encounter Date Provider Facility [id number] Level 3 New Patient 01:46:11 [facility] Hope landers MD PhD [facility] Procedures Code Procedure Name Date Entry Date Standard Desc ription CPT-77899 Postop F/U Visit 15:47:49 CDT CPT-46668 Postop F/U Visit 15:21:02 CDT CPT-TCM Transitional Care Mgmt-High 07:52:27 CDT 20 20/06/01 CPT-24755 Venipuncture Draw Fee 13:51:18 CDT CPT-25781 Venipuncture Draw Fee 10:14:55 [facility] CPT-10780 Venipuncture Draw Fee 13:39:45 [facility] CPT-OV Office Visit 15:11:22 [facility] CPT-37032 Venipuncture Draw Fee 09:20:49 [facility] CPT-27892 Venipuncture Draw Fee 16:52:15 [facility] CPT-35319 Venipuncture Draw Fee 10:37:24 [facility] CPT-45741 Venipuncture Draw Fee 08:21:21 [facility] CPT-71874 Venipuncture Draw Fee 08:30:20 [facility] CPT-61932 Venipuncture Draw Fee 14:53:21 [facility] CPT-03455 Venipuncture Draw Fee 09:40:56 [facility] CPT-74568 Venipuncture Draw Fee 10:30:47 [facility] CPT-47200 Venipuncture Draw Fee 10:46:17 [facility] CPT-41166 Venipuncture Draw Fee 11:12:45 [facility] CPT-30691 Venipuncture Draw Fee 09:53:33 [facility] CPT-50959 Venipuncture Draw Fee 11:53:51 [facility] CPT-90519 Venipuncture Draw Fee 10:33:50 [facility] CPT-83327 Venipuncture Draw Fee 10:05:01 [facility] CPT-56270 Venipuncture Draw Fee 14:32:52 [facility] CPT-91272 Venipuncture Draw Fee 09:46:13 [facility] CPT-80771 Venipuncture Draw Fee 11:34:27 [facility] CPT-75134 Venipuncture Draw Fee 13:17:16 [facility] CPT-73192 Venipuncture Draw Fee 12:05:39 CDT CPT-68658 Venipuncture Draw Fee 12:49:12 CDT CPT-50906 Venipuncture Draw Fee 12:37:18 CDT CPT-38533 Venipuncture Draw Fee 10:57:11 CDT CPT-87946 Venipuncture Draw Fee 13:47:40 CDT CPT-64463 Venipuncture Draw Fee 10:02:17 CDT CPT-13822 TB Tubersol 17:32:32 CDT CPT-OV Office Visit 16:21:53 CDT CPT-OV Office Visit 15:49:22 CDT CPT-OV Office Visit 17:16:31 CDT CPT-OV Office Visit 10:43:31 CDT
--- OUTSIDE RECORDS SUMMARY | 2019-02-09 13:24 | XMS REPORT | Clinical Summary ---
Author Author Renaldo, Florecita Munoz Organization [facility] Address Unknown Phone Allergies, Adverse Reactions, Alerts [...] 1 tab 3x aday M AGNESIUM GLUCONATE 25830984980 Active Adam Yates MD Active PROZAC 20 MG CAPS 1 q d FLUOXETINE HCL 20483 775272 No Longer Active Hope Benavidez MD PhD Active INNOPRAN XL 120 MG [id number] Take one by mouth daily PROPRANOLOL HCL SR BEADS 26457784427 Active Hope Benavidez MD PhD Active POTASSIUM CHLORIDE 20 MEQ PACK by mouth twice a day prn POTASSIUM CHLORIDE 79174099069 Active Adam Yates MD Activ e CYCLOBENZAPRINE HCL 10 MG TABS 1 tablet by mouth three times daily as needed for headaches CYCLOBENZAPRINE HCL 03805399757 Active Selena Yates MD Active SIMVASTATIN 40 MG TABS 1 qd SIMVASTATIN 004 60348905 No Longer Active Adam Yates MD Active MELOXICAM 15 MG TABS 1 qd MELOXICAM 6858170 1541 No Longer Active Adam Yates MD Active ATENOLOL 50 MG TABS 1/2 tab q other day ATENOLOL 18947698897 Active Hope Benavidez MD PhD Active OMEPRAZOLE 20 MG CPDR 1 tablet by mouth daily for GERD OMEPRAZOLE 66264280597 Active Hope Benavidez MD PhD Active IMODIUM A-D 2 MG TABS 2 onset at diarrhea and prn. LOPERAMIDE HCL 02379006423 Active Hope Benavidez MD PhD Active PHENADOZ 25 MG SUPP 1 every 4 hrs. PRN PROMETHAZINE HCL 17215033110 Active Hope Benavidez MD PhD Active PROMETHAZINE HCL 25 MG TABS 1 Q. 4 hr. PRN PROMETH AZINE HCL 74179941135 Active Hope Benavidez MD PhD Active EXCEDRIN EXTRA STRENGTH 250-250-65 MG TABS 1-2 q6h PRN headache 201 04/16/21 [id number] 66098691619 Active Hope Benavidez MD PhD Active ZOFRAN 4 MG TABS 1 q 6 hr prn ONDANSETRON HCL 4249077 7002 Active Fay Alberts Active FLAGYL 500 MG TABS 1 qid METRONIDAZOLE 88405 607323 No Longer Active Adam Yates MD Active LEVAQUIN 750 MG TABS 1 qd LEVOFLOXACIN 5486 9178281 No Longer Active Adam Yates MD Active DYAZIDE 37.5-25 MG CAPS 1 qd TRIAMTERENE-HCTZ 5886 2987169 Active Hope Benavidez MD PhD Active ADULT ASPIRIN LOW STRENGTH 81 MG TBDP 1 qd A SPIRIN 06459155160 Active Hope Benavidez MD PhD Active LEVAQUIN 750 MG TABS 1 qd LEVAQUIN 750 MG T ABS 669044 LEVOFLOXACIN Inactive FLAGYL 500 MG TABS 1 qid FLAGYL 500 MG TABS 937106 METRONIDAZOLE Inactive MELOXICAM 15 MG TABS 1 qd MELOXICAM 15 MG T ABS 599713 MELOXICAM Inactive SIMVASTATIN 40 MG TABS 1 qd SIMVASTATIN 40 MG TABS 046753 SIMVASTATIN Inactive PROZAC 20 MG CAPS 1 [...] - Chem istry sodium, serum 137 mmol/L 773-261 2399/11/01 potassium, serum 3.7 mmol/L 3.5-5.2 chloride, serum 100 mmol/L 98-107 carbon dioxide, venous blood 31.8 mmol/L 21.0-32 .0 blood glucose 98 mg/dL 65-110 calcium, serum 8.6 mg/dL 8.5-10.1 urea nitrogen, blood 23 mg/dL 7-18 creatinine, serum 1.50 mg/dL 0.60-1.30 sodium, serum 136 mmol/L 349-411 9272/05/02 potassium, serum 4.1 mmol/L 3.5-5.2 chloride, serum [...] 11 .6-14.8 platelet count 133 10^3/MM^3 10*3/mm3 648-793 2727/01/17 leukocyte count, blood 3.1 10^3/MM^3 10*3/mm3 4.6-10.2 [...] 11 .6-14.8 platelet count 22 10^3/MM^3 10*3/mm3 526-504 4881/11/19 leukocyte count, blood 10.4 10^3/MM^3 10*3/mm3 4.6-10.2 [...] Verified By Repeat Analysis 10^3/mm ^3 10*3/mm3 543-489 6384/12/10 leukocyte count, blood 7.8 10^3/MM^3 10*3/mm3 4.6-10.2 [...] Panel - Chemistry sodium, serum 139 mmol/L 707-248 0108/12/03 potassium, serum 3.7 mmol/L 3.5-5.2 chloride, serum [...] 0.40 mg/dL 0.00-1.00 sodium, serum 137 mmol/L 970-882 5473/10/01 potassium, serum 3.5 mmol/L 3.5-5.2 chloride, serum [...] 0.60 mg/dL 0.00-1.00 sodium, serum 136 mmol/L 272-808 7796/10/08 potassium, serum 3.1 mmol/L 3.5-5.2 chloride, serum [...] 0.60 mg/dL 0.00-1.00 sodium, serum 139 mmol/L 758-660 1135/10/17 potassium, serum 3.1 mmol/L 3.5-5.2 chloride, serum [...] 0.30 mg/dL 0.00-1.00 sodium, serum 139 mmol/L 286-377 8329/01/21 potassium, serum 3.4 mmol/L 3.5-5.2 chloride, serum [...] 0.40 mg/dL 0.00-1.00 sodium, serum 138 mmol/L 772-043 7323/01/28 potassium, serum 3.2 mmol/L 3.5-5.2 chloride, serum [...] 0.40 mg/dL 0.00-1.00 sodium, serum 140 mmol/L 757-532 0652/02/04 potassium, serum 3.6 mmol/L 3.5-5.2 chloride, serum [...] 0.70 mg/dL 0.00-1.00 sodium, serum 142 mmol/L 144-262 7826/01/03 potassium, serum 3.4 mmol/L 3.5-5.2 chloride, serum [...] 0.50 mg/dL 0.00-1.00 sodium, serum 140 mmol/L 470-695 8420/01/06 potassium, serum 3.4 mmol/L 3.5-5.2 chloride, serum [...] 0.40 mg/dL 0.00-1.00 sodium, serum 136 mmol/L 643-746 3376/04/03 potassium, serum 3.7 mmol/L 3.5-5.2 chloride, serum [...] 0.40 mg/dL 0.00-1.00 sodium, serum 136 mmol/L 187-834 5116/02/11 potassium, serum 3.1 mmol/L 3.5-5.2 chloride, serum [...] 0.50 mg/dL 0.00-1.00 sodium, serum 139 mmol/L 742-306 5740/02/18 potassium, serum 3.6 mmol/L 3.5-5.2 chloride, serum [...] 11 .6-14.8 platelet count 246 10^3/MM^3 10*3/mm3 781-884 7070/02/18 leukocyte count, blood 4.0 10^3/MM^3 10*3/mm3 4.6-10.2 [...] 11 .6-14.8 platelet count 134 10^3/MM^3 10*3/mm3 195-560 3136/01/03 leukocyte count, blood 8.1 10^3/MM^3 10*3/mm3 4.6-10.2 [...] 11 .6-14.8 platelet count 96 10^3/MM^3 10*3/mm3 935-892 2065/01/06 leukocyte count, blood 7.6 10^3/MM^3 10*3/mm3 4.6-10.2 [...] 11 .6-14.8 platelet count 132 10^3/MM^3 10*3/mm3 173-604 9278/02/11 leukocyte count, blood 4.8 10^3/MM^3 10*3/mm3 4.6-10.2 [...] 11 .6-14.8 platelet count 102 10^3/MM^3 10*3/mm3 252-007 3689/02/04 leukocyte count, blood 3.6 10^3/MM^3 10*3/mm3 4.6-10.2 [...] 11 .6-14.8 platelet count 70 10^3/MM^3 10*3/mm3 720-103 1906/01/28 leukocyte count, blood 4.2 10^3/MM^3 10*3/mm3 4.6-10.2 [...] 11 .6-14.8 platelet count 73 10^3/MM^3 10*3/mm3 280-880 1796/01/21 leukocyte count, blood 4.9 10^3/MM^3 10*3/mm3 4.6-10.2 [...] .6-14.8 platelet count 38 recounted 10^3/mm^3 10*3/mm3 784-656 7329/10/08 leukocyte count, blood 2.9 10^3/MM^3 10*3/mm3 4.6-10.2 [...] 11 .6-14.8 platelet count 229 10^3/MM^3 10*3/mm3 137-977 1840/10/17 leukocyte count, blood 12.0 10^3/MM^3 10*3/mm3 4.6-10.2 [...] 11 .6-14.8 platelet count 232 10^3/MM^3 10*3/mm3 704-764 3070/10/01 leukocyte count, blood 8.3 10^3/MM^3 10*3/mm3 4.6-10.2 [...] 11 .6-14.8 platelet count 378 10^3/MM^3 10*3/mm3 497-344 4764/12/03 leukocyte count, blood 8.2 10^3/MM^3 10*3/mm3 4.6-10.2 [...] Diff/Morphology - Chemistry sodium, serum 141 mmol/L 297-473 7865/11/25 potassium, serum 3.9 mmol/L 3.5-5.2 chloride, serum [...] 0.50 mg/dL 0.00-1.00 sodium, serum 137 mmol/L 683-111 4913/11/12 potassium, serum 3.2 mmol/L 3.5-5.2 chloride, serum [...] 0.40 mg/dL 0.00-1.00 sodium, serum 140 mmol/L 102-912 3176/12/17 potassium, serum 3.3 mmol/L 3.5-5.2 chloride, serum [...] 0.40 mg/dL 0.00-1.00 sodium, serum 138 mmol/L 942-076 4943/12/24 potassium, serum 3.7 mmol/L 3.5-5.2 chloride, serum [...] 0.50 mg/dL 0.00-1.00 sodium, serum 138 mmol/L 172-283 3934/11/05 potassium, serum 3.9 mmol/L 3.5-5.2 chloride, serum [...] 0.40 mg/dL 0.00-1.00 sodium, serum 135 mmol/L 321-038 5067/10/22 potassium, serum 3.0 mmol/L 3.5-5.2 chloride, serum [...] 0.50 mg/dL 0.00-1.00 sodium, serum 128 mmol/L 456-302 1132/10/29 potassium, serum 2.6 mmol/L 3.5-5.2 chloride, [...] 0.50 mg/dL 0.00-1.00 sodium, serum 141 mmol/L 027-510 2095/01/14 potassium, serum 3.9 mmol/L 3.5-5.2 chloride, serum [...] 11 .6-14.8 platelet count 22 10^3/MM^3 10*3/mm3 107-916 4919/10/22 leukocyte count, blood 14.7 10^3/MM^3 10*3/mm3 4.6-10.2 [...] 11 .6-14.8 platelet count 428 10^3/MM^3 10*3/mm3 505-230 8306/10/29 leukocyte count, blood 26.3 10^3/MM^3 10*3/mm3 4.6-10.2 [...] 11 .6-14.8 platelet count 268 10^3/MM^3 10*3/mm3 229-336 0462/11/12 leukocyte count, blood 12.1 10^3/MM^3 10*3/mm3 4.6-10.2 [...] 11 .6-14.8 platelet count 157 10^3/MM^3 10*3/mm3 009-196 6222/11/05 leukocyte count, blood 16.4 10^3/MM^3 10*3/mm3 4.6-10.2 [...] 11 .6-14.8 platelet count 215 10^3/MM^3 10*3/mm3 004-161 0807/12/24 leukocyte count, blood 14.0 10^3/MM^3 10*3/mm3 4.6-10.2 [...] 11 .6-14.8 platelet count 66 10^3/MM^3 10*3/mm3 095-840 1739/12/17 leukocyte count, blood 18.6 10^3/MM^3 10*3/mm3 4.6-10.2 [...] 11 .6-14.8 platelet count 75 10^3/MM^3 10*3/mm3 738-455 5756/11/25 leukocyte count, blood 21.1 10^3/MM^3 10*3/mm3 4.6-10.2 [...] 11 .6-14.8 platelet count 413 10^3/MM^3 10*3/mm3 561-406 0910/01/16 leukocyte count, blood 3.6 10^3/MM^3 10*3/mm3 4.6-10.2 [...] - Chem istry sodium, serum 141 mmol/L 630-188 1855/11/19 potassium, serum 3.9 mmol/L 3.5-5.2 chloride, serum [...] 0.50 mg/dL 0.00-1.00 sodium, serum 142 mmol/L 625-014 9311/12/10 potassium, serum 3.9 mmol/L 3.5-5.2 chloride, serum [...] Diff/Morphology - Chemistry sodium, serum 142 mmol/L 092-910 7622/12/31 potassium, serum 3.6 mmol/L 3.5-5.2 chloride, serum [...] 3.5-5.2 Encounters Code Encounter Date Provider Facility CPT-79759 Level 3 New Patient 01:46:11 MANAGER OF CORPORATE COMMUNICATIONS Hope landers MD PhD [facility] Procedures Code Procedure Name Date Entry Date Standard Desc ription CPT-86245 Postop F/U Visit 15:47:49 CDT CPT-00056 Postop F/U Visit 15:21:02 CDT CPT-TCM Transitional Care Mgmt-High 07:52:27 CDT 20 20/06/01 CPT-41099 Venipuncture Draw Fee 13:51:18 CDT CPT-96315 Venipuncture Draw Fee 10:14:55 MANAGER OF [employer]POR[employer] COMMUNICATIONS CPT-97236 Venipuncture Draw Fee 13:39:45 MANAGER OF [employer]PORATE COMMUNICATIONS CPT-OV Office Visit 15:11:22 MANAGER OF [employer]PORATE COMMUNICATION[employer] CPT-10803 Venipuncture Draw Fee 09:20:49 MANAGER OF [employer]PORATE COMMUNICATIONS CPT-64160 Venipuncture Draw Fee 16:52:15 MANAGER OF [employer]PORATE COMMUNICATIONS CPT-29026 Venipuncture Draw Fee 10:37:24 MANAGER OF [employer]PORATE COMMUNICATIONS CPT-26252 Venipuncture Draw Fee 08:21:21 MANAGER OF [employer]PORATE COMMUNICATIONS CPT-56902 Venipuncture Draw Fee 08:30:20 MANAGER OF [employer]PORATE COMMUNICATIONS CPT-80493 Venipuncture Draw Fee 14:53:21 MANAGER OF [employer]PORATE COMMUNICATIONS CPT-47594 Venipuncture Draw Fee 09:40:56 MANAGER OF CORPORATE COMMUNICATIONS CPT-05313 Venipuncture Draw Fee 10:30:47 MANAGER OF [employer]PORATE COMMUNICATIONS CPT-06384 Venipuncture Draw Fee 10:46:17 MANAGER OF [employer]PORATE COMMUNICATIONS CPT-61894 Venipuncture Draw Fee 11:12:45 MANAGER OF [employer]PORATE COMMUNICATIONS CPT-93827 Venipuncture Draw Fee 09:53:33 MANAGER OF [employer]PORATE COMMUNICATIONS CPT-23564 Venipuncture Draw Fee 11:53:51 MANAGER OF [employer]PORATE COMMUNICATIONS CPT-73553 Venipuncture Draw Fee 10:33:50 MANAGER OF [employer]PORATE COMMUNICATIONS CPT-49894 Venipuncture Draw Fee 10:05:01 MANAGER OF [employer]PORATE COMMUNICATIONS CPT-30068 Venipuncture Draw Fee 14:32:52 MANAGER OF [employer]PORATE COMMUNICATIONS CPT-98273 Venipuncture Draw Fee 09:46:13 MANAGER OF CORPORATE COMMUNICATIONS CPT-71694 Venipuncture Draw Fee 11:34:27 MANAGER OF [employer]PORATE COMMUNICATIONS CPT-35380 Venipuncture Draw Fee 13:17:16 MANAGER OF [employer]PORATE COMMUNICATIONS CPT-95902 Venipuncture Draw Fee 12:05:39 CDT CPT-79155 Venipuncture Draw Fee 12:49:12 CDT CPT-75003 Venipuncture Draw Fee 12:37:18 CDT CPT-75330 Venipuncture Draw Fee 10:57:11 CDT CPT-47571 Venipuncture Draw Fee 13:47:40 CDT CPT-39389 Venipuncture Draw Fee 10:02:17 CDT CPT-96281 TB Tubersol 17:32:32 CDT CPT-OV Office Visit 16:21:53 CDT CPT-OV Office Visit 15:49:22 CDT CPT-OV Office Visit 17:16:31 CDT CPT-OV Office Visit 10:43:31 CDT
--- OUTSIDE RECORDS SUMMARY | 2019-02-09 13:25 | XMS REPORT | Clinical Summary ---
Author Author Renaldo, Florecita Munoz Organization [facility] Address Unknown Phone Allergies, Adverse Reactions, [...] a health care facility Anemia 285.9 Active Adma Yates MD Anemia, unspecified Personal history of [...] MG CAPS 1 q d FLUOXETINE HCL 09935 448559 No Longer Active Hope Benavidez MD PhD Active INNOPRAN XL 120 MG [id number] Take one by mouth daily PROPRANOLOL HCL SR BEADS 03961621139 Active Hope Benavidez MD PhD Active POTASSIUM CHLORIDE 20 MEQ PACK by mouth twice a day prn POTASSIUM CHLORIDE 35079098516 Active Adam Yates MD Activ e CYCLOBENZAPRINE HCL 10 MG TABS 1 tablet by mouth three times daily as needed for headaches CYCLOBENZAPRINE HCL 97659465546 Active Selena Yates MD Active SIMVASTATIN 40 MG TABS 1 qd SIMVASTATIN 004 01717509 No Longer Active Adam Yates MD Active MELOXICAM 15 MG TABS 1 qd MELOXICAM 7218009 9322 No Longer Active Adam Yates MD Active ATENOLOL 50 MG TABS 1/2 tab q other day ATENOLOL 34746168818 Active Hope Benavidez MD PhD Active OMEPRAZOLE 20 MG CPDR 1 tablet by mouth daily for GERD OMEPRAZOLE 37361594476 Active Hope Benavidez MD PhD Active IMODIUM A-D 2 MG TABS 2 onset at diarrhea and prn. LOPERAMIDE HCL 97683516757 Active Hope Benavidez MD PhD Active PHENADOZ 25 MG SUPP 1 every 4 hrs. PRN PROMETHAZINE HCL 95851990943 Active Hope Benavidez MD PhD Active PROMETHAZINE HCL 25 MG TABS 1 Q. 4 hr. PRN PROMETH AZINE HCL 99691931042 Active Hope Benavidez MD PhD Active EXCEDRIN EXTRA STRENGTH 250-250-65 MG TABS 1-2 q6h PRN headache 201 04/16/21 [id number] 83204905012 Active Hope Benavidez MD PhD Active ZOFRAN 4 MG TABS 1 q 6 hr prn ONDANSETRON HCL 3400907 7002 Active Fay Alberts Active FLAGYL 500 MG TABS 1 qid METRONIDAZOLE 77636 456314 No Longer Active Adam Yates MD Active LEVAQUIN 750 MG TABS 1 qd LEVOFLOXACIN 5486 5286790 No Longer Active Adam Yates MD Active DYAZIDE 37.5-25 MG CAPS 1 qd TRIAMTERENE-HCTZ 5886 9183221 Active Hope Benavidez MD PhD Active ADULT ASPIRIN LOW STRENGTH 81 MG TBDP 1 qd Lisa ANGUIAON 92270830863 Active Hope Benavidez MD PhD Active FLAGYL 500 MG TABS 1 qid FLAGYL 500 MG TABS 833107 METRONIDAZOLE Inactive PROZAC 20 MG CAPS 1 q d PROZAC 20 MG CAPS 31 0385 FLUOXETINE HCL Inactive SIMVASTATIN 40 MG TABS 1 qd SIMVASTATIN 40 MG TABS 276726 SIMVASTATIN Inactive MELOXICAM 15 MG TABS 1 qd MELOXICAM 15 MG T ABS 403731 MELOXICAM Inactive LEVAQUIN 750 MG TABS 1 qd LEVAQUIN 750 MG T ABS 893554 LEVOFLOXACIN Inactive Advance Directives Directive Description Start [...] - Chem istry sodium, serum 137 mmol/L 507-489 7679/11/01 potassium, serum 3.7 mmol/L 3.5-5.2 chloride, serum 100 mmol/L 98-107 carbon dioxide, venous blood 31.8 mmol/L 21.0-32 .0 blood glucose 98 mg/dL 65-110 calcium, serum 8.6 mg/dL 8.5-10.1 urea nitrogen, blood 23 mg/dL 7-18 creatinine, serum 1.50 mg/dL 0.60-1.30 sodium, serum 136 mmol/L 129-448 1943/05/02 potassium, serum 4.1 mmol/L 3.5-5.2 chloride, serum [...] 11 .6-14.8 platelet count 133 10^3/MM^3 10*3/mm3 518-486 9740/01/17 leukocyte count, blood 3.1 10^3/MM^3 10*3/mm3 4.6-10.2 [...] 11 .6-14.8 platelet count 22 10^3/MM^3 10*3/mm3 845-317 7077/11/19 leukocyte count, blood 10.4 10^3/MM^3 10*3/mm3 4.6-10.2 [...] Verified By Repeat Analysis 10^3/mm ^3 10*3/mm3 684-317 5042/12/10 leukocyte count, blood 7.8 10^3/MM^3 10*3/mm3 4.6-10.2 [...] Panel - Chemistry sodium, serum 139 mmol/L 686-983 1953/12/03 potassium, serum 3.7 mmol/L 3.5-5.2 chloride, serum [...] 0.40 mg/dL 0.00-1.00 sodium, serum 137 mmol/L 208-973 1403/10/01 potassium, serum 3.5 mmol/L 3.5-5.2 chloride, serum [...] 0.60 mg/dL 0.00-1.00 sodium, serum 136 mmol/L 802-938 6150/10/08 potassium, serum 3.1 mmol/L 3.5-5.2 chloride, serum [...] 0.60 mg/dL 0.00-1.00 sodium, serum 139 mmol/L 637-585 6984/10/17 potassium, serum 3.1 mmol/L 3.5-5.2 chloride, serum [...] 0.30 mg/dL 0.00-1.00 sodium, serum 139 mmol/L 207-732 5265/01/21 potassium, serum 3.4 mmol/L 3.5-5.2 chloride, serum [...] 0.40 mg/dL 0.00-1.00 sodium, serum 138 mmol/L 199-163 4648/01/28 potassium, serum 3.2 mmol/L 3.5-5.2 chloride, serum [...] 0.40 mg/dL 0.00-1.00 sodium, serum 140 mmol/L 108-120 1734/02/04 potassium, serum 3.6 mmol/L 3.5-5.2 chloride, serum [...] 0.70 mg/dL 0.00-1.00 sodium, serum 142 mmol/L 132-226 5756/01/03 potassium, serum 3.4 mmol/L 3.5-5.2 chloride, serum [...] 0.50 mg/dL 0.00-1.00 sodium, serum 140 mmol/L 132-714 8538/01/06 potassium, serum 3.4 mmol/L 3.5-5.2 chloride, serum [...] 0.40 mg/dL 0.00-1.00 sodium, serum 136 mmol/L 336-925 5084/04/03 potassium, serum 3.7 mmol/L 3.5-5.2 chloride, serum [...] 0.40 mg/dL 0.00-1.00 sodium, serum 136 mmol/L 074-767 7550/02/11 potassium, serum 3.1 mmol/L 3.5-5.2 chloride, serum [...] 0.50 mg/dL 0.00-1.00 sodium, serum 139 mmol/L 831-940 1453/02/18 potassium, serum 3.6 mmol/L 3.5-5.2 chloride, serum [...] 11 .6-14.8 platelet count 246 10^3/MM^3 10*3/mm3 540-610 3486/02/18 leukocyte count, blood 4.0 10^3/MM^3 10*3/mm3 4.6-10.2 [...] 11 .6-14.8 platelet count 134 10^3/MM^3 10*3/mm3 459-498 9090/01/03 leukocyte count, blood 8.1 10^3/MM^3 10*3/mm3 4.6-10.2 [...] 11 .6-14.8 platelet count 96 10^3/MM^3 10*3/mm3 226-462 1046/01/06 leukocyte count, blood 7.6 10^3/MM^3 10*3/mm3 4.6-10.2 [...] 11 .6-14.8 platelet count 132 10^3/MM^3 10*3/mm3 086-725 0811/02/11 leukocyte count, blood 4.8 10^3/MM^3 10*3/mm3 4.6-10.2 [...] 11 .6-14.8 platelet count 102 10^3/MM^3 10*3/mm3 412-499 4330/02/04 leukocyte count, blood 3.6 10^3/MM^3 10*3/mm3 4.6-10.2 [...] 11 .6-14.8 platelet count 70 10^3/MM^3 10*3/mm3 838-192 6527/01/28 leukocyte count, blood 4.2 10^3/MM^3 10*3/mm3 4.6-10.2 [...] 11 .6-14.8 platelet count 73 10^3/MM^3 10*3/mm3 357-153 1614/01/21 leukocyte count, blood 4.9 10^3/MM^3 10*3/mm3 4.6-10.2 [...] .6-14.8 platelet count 38 recounted 10^3/mm^3 10*3/mm3 851-905 3276/10/08 leukocyte count, blood 2.9 10^3/MM^3 10*3/mm3 4.6-10.2 [...] 11 .6-14.8 platelet count 229 10^3/MM^3 10*3/mm3 544-745 0732/10/17 leukocyte count, blood 12.0 10^3/MM^3 10*3/mm3 4.6-10.2 [...] 11 .6-14.8 platelet count 232 10^3/MM^3 10*3/mm3 378-570 4065/10/01 leukocyte count, blood 8.3 10^3/MM^3 10*3/mm3 4.6-10.2 [...] 11 .6-14.8 platelet count 378 10^3/MM^3 10*3/mm3 060-404 9777/12/03 leukocyte count, blood 8.2 10^3/MM^3 10*3/mm3 4.6-10.2 [...] Diff/Morphology - Chemistry sodium, serum 141 mmol/L 135-090 4770/11/25 potassium, serum 3.9 mmol/L 3.5-5.2 chloride, serum [...] 0.50 mg/dL 0.00-1.00 sodium, serum 137 mmol/L 831-921 0566/11/12 potassium, serum 3.2 mmol/L 3.5-5.2 chloride, serum [...] 0.40 mg/dL 0.00-1.00 sodium, serum 140 mmol/L 879-036 0622/12/17 potassium, serum 3.3 mmol/L 3.5-5.2 chloride, serum [...] 0.40 mg/dL 0.00-1.00 sodium, serum 138 mmol/L 534-011 5398/12/24 potassium, serum 3.7 mmol/L 3.5-5.2 chloride, serum [...] 0.50 mg/dL 0.00-1.00 sodium, serum 138 mmol/L 451-088 4016/11/05 potassium, serum 3.9 mmol/L 3.5-5.2 chloride, serum [...] 0.40 mg/dL 0.00-1.00 sodium, serum 135 mmol/L 964-964 4756/10/22 potassium, serum 3.0 mmol/L 3.5-5.2 chloride, serum [...] 0.50 mg/dL 0.00-1.00 sodium, serum 128 mmol/L 036-089 0889/10/29 potassium, serum 2.6 mmol/L 3.5-5.2 chloride, serum [...] 0.50 mg/dL 0.00-1.00 sodium, serum 141 mmol/L 605-266 7032/01/14 potassium, serum 3.9 mmol/L 3.5-5.2 chloride, serum [...] 11 .6-14.8 platelet count 22 10^3/MM^3 10*3/mm3 111-723 3406/10/22 leukocyte count, blood 14.7 10^3/MM^3 10*3/mm3 4.6-10.2 [...] 11 .6-14.8 platelet count 428 10^3/MM^3 10*3/mm3 274-151 8663/10/29 leukocyte count, blood 26.3 10^3/MM^3 10*3/mm3 4.6-10.2 [...] 11 .6-14.8 platelet count 268 10^3/MM^3 10*3/mm3 224-903 1236/11/12 leukocyte count, blood 12.1 10^3/MM^3 10*3/mm3 4.6-10.2 [...] 11 .6-14.8 platelet count 157 10^3/MM^3 10*3/mm3 318-340 2538/11/05 leukocyte count, blood 16.4 10^3/MM^3 10*3/mm3 4.6-10.2 [...] 11 .6-14.8 platelet count 215 10^3/MM^3 10*3/mm3 043-475 3357/12/24 leukocyte count, blood 14.0 10^3/MM^3 10*3/mm3 4.6-10.2 [...] 11 .6-14.8 platelet count 66 10^3/MM^3 10*3/mm3 835-882 8042/12/17 leukocyte count, blood 18.6 10^3/MM^3 10*3/mm3 4.6-10.2 [...] 11 .6-14.8 platelet count 75 10^3/MM^3 10*3/mm3 945-823 6741/11/25 leukocyte count, blood 21.1 10^3/MM^3 10*3/mm3 4.6-10.2 [...] 11 .6-14.8 platelet count 413 10^3/MM^3 10*3/mm3 931-454 9902/01/16 leukocyte count, blood 3.6 10^3/MM^3 10*3/mm3 4.6-10.2 [...] - Chem istry sodium, serum 141 mmol/L 364-376 3800/11/19 potassium, serum 3.9 mmol/L 3.5-5.2 chloride, serum [...] 0.50 mg/dL 0.00-1.00 sodium, serum 142 mmol/L 696-123 1582/12/10 potassium, serum 3.9 mmol/L 3.5-5.2 chloride, serum [...] Diff/Morphology - Chemistry sodium, serum 142 mmol/L 034-120 6668/12/31 potassium, serum 3.6 mmol/L 3.5-5.2 chloride, serum [...] 3.5-5.2 Encounters Code Encounter Date Provider Facility CPT-07272 Level 3 New Patient 01:46:11 HANDWRITING EXPERT Hope landers MD PhD [facility] Procedures Code Procedure Name Date Entry Date Standard Desc ription CPT-96135 Postop F/U Visit 15:21:02 CDT CPT-TCMH Transitional Care Mgmt-High 07:52:27 CDT 20 20/06/01 CPT-76159 Venipuncture Draw Fee 13:51:18 CDT CPT-29437 Venipuncture Draw Fee 10:14:55 HANDWRITING EXPERT CPT-50424 Venipuncture Draw Fee 13:39:45 HANDWRITING EXPERT CPT-OV Office Visit 15:11:22 HANDWRITING EXPERT CPT-65913 Venipuncture Draw Fee 09:20:49 HANDWRITING EXPERT CPT-30490 Venipuncture Draw Fee 16:52:15 HANDWRITING EXPERT CPT-71884 Venipuncture Draw Fee 10:37:24 HANDWRITING EXPERT CPT-00962 Venipuncture Draw Fee 08:21:21 HANDWRITING EXPERT CPT-98022 Venipuncture Draw Fee 08:30:20 HANDWRITING EXPERT CPT-26177 Venipuncture Draw Fee 14:53:21 HANDWRITING EXPERT CPT-33539 Venipuncture Draw Fee 09:40:56 HANDWRITING EXPERT CPT-98233 Venipuncture Draw Fee 10:30:47 HANDWRITING EXPERT CPT-49510 Venipuncture Draw Fee 10:46:17 HANDWRITING EXPERT CPT-07705 Venipuncture Draw Fee 11:12:45 HANDWRITING EXPERT CPT-40897 Venipuncture Draw Fee 09:53:33 HANDWRITING EXPERT CPT-95098 Venipuncture Draw Fee 11:53:51 HANDWRITING EXPERT CPT-58478 Venipuncture Draw Fee 10:33:50 HANDWRITING EXPERT CPT-40329 Venipuncture Draw Fee 10:05:01 HANDWRITING EXPERT CPT-51063 Venipuncture Draw Fee 14:32:52 HANDWRITING EXPERT CPT-22522 Venipuncture Draw Fee 09:46:13 HANDWRITING EXPERT CPT-27527 Venipuncture Draw Fee 11:34:27 HANDWRITING EXPERT CPT-35725 Venipuncture Draw Fee 13:17:16 HANDWRITING EXPERT CPT-37141 Venipuncture Draw Fee 12:05:39 CDT CPT-99115 Venipuncture Draw Fee 12:49:12 CDT CPT-22089 Venipuncture Draw Fee 12:37:18 CDT CPT-97650 Venipuncture Draw Fee 10:57:11 CDT CPT-35738 Venipuncture Draw Fee 13:47:40 CDT CPT-28796 Venipuncture Draw Fee 10:02:17 CDT CPT-16241 TB Tubersol 17:32:32 CDT CPT-OV Office Visit 16:21:53 CDT CPT-OV Office Visit 15:49:22 CDT CPT-OV Office Visit 17:16:31 CDT CPT-OV Office Visit 10:43:31 CDT
--- OUTSIDE RECORDS SUMMARY | 2019-02-09 13:25 | XMS REPORT | Clinical Summary ---
Author Author Renaldo, Florecita Munoz Organization [facility] Address Unknown Phone Allergies, Adverse [...] health care facility Anemia 285.9 Active Adam Ytaes MD Anemia, unspecified Personal history of malignant [...] MG CAPS 1 q d FLUOXETINE HCL 43173 428005 No Longer Active Hope Benavidez MD PhD Active INNOPRAN XL 120 MG [id number] Take one by mouth daily PROPRANOLOL HCL SR BEADS 56746169845 Active Hope Benavidez MD PhD Active POTASSIUM CHLORIDE 20 MEQ PACK by mouth twice a day prn POTASSIUM CHLORIDE 88278695450 Active Adam Yates MD Activ e CYCLOBENZAPRINE HCL 10 MG TABS 1 tablet by mouth three times daily as needed for headaches CYCLOBENZAPRINE HCL 26504457314 Active Selena Yates MD Active SIMVASTATIN 40 MG TABS 1 qd SIMVASTATIN 004 68728119 No Longer Active Adam Yates MD Active MELOXICAM 15 MG TABS 1 qd MELOXICAM 8294438 8866 No Longer Active Adam Yates MD Active ATENOLOL 50 MG TABS 1/2 tab q other day ATENOLOL 75262468837 Active Hope Benavidez MD PhD Active OMEPRAZOLE 20 MG CPDR 1 tablet by mouth daily for GERD OMEPRAZOLE 31766246716 Active Hope Benavidez MD PhD Active IMODIUM A-D 2 MG TABS 2 onset at diarrhea and prn. LOPERAMIDE HCL 51628246043 Active Hope Benavidez MD PhD Active PHENADOZ 25 MG SUPP 1 every 4 hrs. PRN PROMETHAZINE HCL 74559397725 Active Hope Benavidez MD PhD Active PROMETHAZINE HCL 25 MG TABS 1 Q. 4 hr. PRN PROMETH AZINE HCL 31515885186 Active Hope Benavidez MD PhD Active EXCEDRIN EXTRA STRENGTH 250-250-65 MG TABS 1-2 q6h PRN headache 201 04/16/21 [id number]-QGOBLISX 27040119811 Active Hope Benavidez MD PhD Active ZOFRAN 4 MG TABS 1 q 6 hr prn ONDANSETRON HCL 7239915 7002 Active Fay Alberts Active FLAGYL 500 MG TABS 1 qid METRONIDAZOLE 60753 772725 No Longer Active Adam Yates MD Active LEVAQUIN 750 MG TABS 1 qd LEVOFLOXACIN 5486 3494512 No Longer Active Adam Yates MD Active DYAZIDE 37.5-25 MG CAPS 1 qd TRIAMTERENE-HCTZ 5886 0580014 Active Hope Benavidez MD PhD Active ADULT ASPIRIN LOW STRENGTH 81 MG TBDP 1 qd A SPIRIN 78326936942 Active Hope Benavidez MD PhD Active LEVAQUIN 750 MG TABS 1 qd LEVAQUIN 750 MG T ABS 065553 LEVOFLOXACIN Inactive FLAGYL 500 MG TABS 1 qid FLAGYL 500 MG TABS 064781 METRONIDAZOLE Inactive MELOXICAM 15 MG TABS 1 qd MELOXICAM 15 MG T ABS 393390 MELOXICAM Inactive SIMVASTATIN 40 MG TABS 1 qd SIMVASTATIN 40 MG TABS 029182 SIMVASTATIN Inactive PROZAC 20 MG CAPS 1 [...] - Chem istry sodium, serum 137 mmol/L 277-556 6084/11/01 potassium, serum 3.7 mmol/L 3.5-5.2 chloride, serum 100 mmol/L 98-107 carbon dioxide, venous blood 31.8 mmol/L 21.0-32 .0 blood glucose 98 mg/dL 65-110 calcium, serum 8.6 mg/dL 8.5-10.1 urea nitrogen, blood 23 mg/dL 7-18 creatinine, serum 1.50 mg/dL 0.60-1.30 sodium, serum 136 mmol/L 376-525 7165/05/02 potassium, serum 4.1 mmol/L 3.5-5.2 chloride, serum [...] 11 .6-14.8 platelet count 133 10^3/MM^3 10*3/mm3 639-523 0985/01/17 leukocyte count, blood 3.1 10^3/MM^3 10*3/mm3 4.6-10.2 [...] 11 .6-14.8 platelet count 22 10^3/MM^3 10*3/mm3 844-870 1395/11/19 leukocyte count, blood 10.4 10^3/MM^3 10*3/mm3 4.6-10.2 [...] Verified By Repeat Analysis 10^3/mm ^3 10*3/mm3 589-488 0596/12/10 leukocyte count, blood 7.8 10^3/MM^3 10*3/mm3 4.6-10.2 [...] Panel - Chemistry sodium, serum 139 mmol/L 288-632 4057/12/03 potassium, serum 3.7 mmol/L 3.5-5.2 chloride, serum [...] 0.40 mg/dL 0.00-1.00 sodium, serum 137 mmol/L 735-769 3044/10/01 potassium, serum 3.5 mmol/L 3.5-5.2 chloride, serum [...] 0.60 mg/dL 0.00-1.00 sodium, serum 136 mmol/L 300-757 7095/10/08 potassium, serum 3.1 mmol/L 3.5-5.2 chloride, serum [...] 0.60 mg/dL 0.00-1.00 sodium, serum 139 mmol/L 112-920 2209/10/17 potassium, serum 3.1 mmol/L 3.5-5.2 chloride, serum [...] 0.30 mg/dL 0.00-1.00 sodium, serum 139 mmol/L 213-565 4524/01/21 potassium, serum 3.4 mmol/L 3.5-5.2 chloride, serum [...] 0.40 mg/dL 0.00-1.00 sodium, serum 138 mmol/L 810-180 0609/01/28 potassium, serum 3.2 mmol/L 3.5-5.2 chloride, serum [...] 0.40 mg/dL 0.00-1.00 sodium, serum 140 mmol/L 137-067 6066/02/04 potassium, serum 3.6 mmol/L 3.5-5.2 chloride, serum [...] 0.70 mg/dL 0.00-1.00 sodium, serum 142 mmol/L 607-107 1338/01/03 potassium, serum 3.4 mmol/L 3.5-5.2 chloride, serum [...] 0.50 mg/dL 0.00-1.00 sodium, serum 140 mmol/L 314-054 6141/01/06 potassium, serum 3.4 mmol/L 3.5-5.2 chloride, serum [...] 0.40 mg/dL 0.00-1.00 sodium, serum 136 mmol/L 539-935 2707/04/03 potassium, serum 3.7 mmol/L 3.5-5.2 chloride, serum [...] 0.40 mg/dL 0.00-1.00 sodium, serum 136 mmol/L 276-434 0529/02/11 potassium, serum 3.1 mmol/L 3.5-5.2 chloride, serum [...] 0.50 mg/dL 0.00-1.00 sodium, serum 139 mmol/L 397-609 3810/02/18 potassium, serum 3.6 mmol/L 3.5-5.2 chloride, serum [...] 11 .6-14.8 platelet count 246 10^3/MM^3 10*3/mm3 791-375 7132/02/18 leukocyte count, blood 4.0 10^3/MM^3 10*3/mm3 4.6-10.2 [...] 11 .6-14.8 platelet count 134 10^3/MM^3 10*3/mm3 987-388 5414/01/03 leukocyte count, blood 8.1 10^3/MM^3 10*3/mm3 4.6-10.2 [...] 11 .6-14.8 platelet count 96 10^3/MM^3 10*3/mm3 985-327 4345/01/06 leukocyte count, blood 7.6 10^3/MM^3 10*3/mm3 4.6-10.2 [...] 11 .6-14.8 platelet count 132 10^3/MM^3 10*3/mm3 321-616 4091/02/11 leukocyte count, blood 4.8 10^3/MM^3 10*3/mm3 4.6-10.2 [...] 11 .6-14.8 platelet count 102 10^3/MM^3 10*3/mm3 119-327 3468/02/04 leukocyte count, blood 3.6 10^3/MM^3 10*3/mm3 4.6-10.2 [...] 11 .6-14.8 platelet count 70 10^3/MM^3 10*3/mm3 345-317 4975/01/28 leukocyte count, blood 4.2 10^3/MM^3 10*3/mm3 4.6-10.2 [...] 11 .6-14.8 platelet count 73 10^3/MM^3 10*3/mm3 029-060 5648/01/21 leukocyte count, blood 4.9 10^3/MM^3 10*3/mm3 4.6-10.2 [...] .6-14.8 platelet count 38 recounted 10^3/mm^3 10*3/mm3 960-637 9214/10/08 leukocyte count, blood 2.9 10^3/MM^3 10*3/mm3 4.6-10.2 [...] 11 .6-14.8 platelet count 229 10^3/MM^3 10*3/mm3 576-784 6532/10/17 leukocyte count, blood 12.0 10^3/MM^3 10*3/mm3 4.6-10.2 [...] 11 .6-14.8 platelet count 232 10^3/MM^3 10*3/mm3 890-425 7835/10/01 leukocyte count, blood 8.3 10^3/MM^3 10*3/mm3 4.6-10.2 [...] 11 .6-14.8 platelet count 378 10^3/MM^3 10*3/mm3 308-862 5596/12/03 leukocyte count, blood 8.2 10^3/MM^3 10*3/mm3 4.6-10.2 [...] Diff/Morphology - Chemistry sodium, serum 141 mmol/L 500-575 2584/11/25 potassium, serum 3.9 mmol/L 3.5-5.2 chloride, serum [...] 0.50 mg/dL 0.00-1.00 sodium, serum 137 mmol/L 721-562 0247/11/12 potassium, serum 3.2 mmol/L 3.5-5.2 chloride, serum [...] 0.40 mg/dL 0.00-1.00 sodium, serum 140 mmol/L 778-610 6581/12/17 potassium, serum 3.3 mmol/L 3.5-5.2 chloride, serum [...] 0.40 mg/dL 0.00-1.00 sodium, serum 138 mmol/L 484-935 0176/12/24 potassium, serum 3.7 mmol/L 3.5-5.2 chloride, serum [...] 0.50 mg/dL 0.00-1.00 sodium, serum 138 mmol/L 678-659 7743/11/05 potassium, serum 3.9 mmol/L 3.5-5.2 chloride, serum [...] 0.40 mg/dL 0.00-1.00 sodium, serum 135 mmol/L 647-311 8340/10/22 potassium, serum 3.0 mmol/L 3.5-5.2 chloride, serum [...] 0.50 mg/dL 0.00-1.00 sodium, serum 128 mmol/L 439-227 4669/10/29 potassium, serum 2.6 mmol/L 3.5-5.2 chloride, serum [...] 0.50 mg/dL 0.00-1.00 sodium, serum 141 mmol/L 242-715 4983/01/14 potassium, serum 3.9 mmol/L 3.5-5.2 chloride, serum [...] 11 .6-14.8 platelet count 22 10^3/MM^3 10*3/mm3 565-258 6596/10/22 leukocyte count, blood 14.7 10^3/MM^3 10*3/mm3 4.6-10.2 [...] 11 .6-14.8 platelet count 428 10^3/MM^3 10*3/mm3 784-201 9796/10/29 leukocyte count, blood 26.3 10^3/MM^3 10*3/mm3 4.6-10.2 [...] 11 .6-14.8 platelet count 268 10^3/MM^3 10*3/mm3 899-302 8639/11/12 leukocyte count, blood 12.1 10^3/MM^3 10*3/mm3 4.6-10.2 [...] 11 .6-14.8 platelet count 157 10^3/MM^3 10*3/mm3 680-537 6369/11/05 leukocyte count, blood 16.4 10^3/MM^3 10*3/mm3 4.6-10.2 [...] 11 .6-14.8 platelet count 215 10^3/MM^3 10*3/mm3 905-061 0265/12/24 leukocyte count, blood 14.0 10^3/MM^3 10*3/mm3 4.6-10.2 [...] 11 .6-14.8 platelet count 66 10^3/MM^3 10*3/mm3 766-050 1026/12/17 leukocyte count, blood 18.6 10^3/MM^3 10*3/mm3 4.6-10.2 [...] 11 .6-14.8 platelet count 75 10^3/MM^3 10*3/mm3 344-721 4039/11/25 leukocyte count, blood 21.1 10^3/MM^3 10*3/mm3 4.6-10.2 [...] 11 .6-14.8 platelet count 413 10^3/MM^3 10*3/mm3 755-673 0353/01/16 leukocyte count, blood 3.6 10^3/MM^3 10*3/mm3 4.6-10.2 [...] - Chem istry sodium, serum 141 mmol/L 415-284 1595/11/19 potassium, serum 3.9 mmol/L 3.5-5.2 chloride, serum [...] 0.50 mg/dL 0.00-1.00 sodium, serum 142 mmol/L 502-713 1750/12/10 potassium, serum 3.9 mmol/L 3.5-5.2 chloride, serum [...] Diff/Morphology - Chemistry sodium, serum 142 mmol/L 415-752 3837/12/31 potassium, serum 3.6 mmol/L 3.5-5.2 chloride, serum [...] 3.5-5.2 Encounters Code Encounter Date Provider Facility CPT-80095 Level 3 New Patient 01:46:11 CAMPAIGN MANAGER Hope landers MD PhD [facility] Procedures Code Procedure Name Date Entry Date Standard Desc ription CPT-91650 Postop F/U Visit 15:21:02 CDT CPT-TCMH Transitional Care Mgmt-High 07:52:27 CDT 20 20/06/01 CPT-85590 Venipuncture Draw Fee 13:51:18 CDT CPT-47475 Venipuncture Draw Fee 10:14:55 CAMPAIGN MANAGER CPT-16847 Venipuncture Draw Fee 13:39:45 CAMPAIGN MANAGER CPT-OV Office Visit 15:11:22 CAMPAIGN MANAGER CPT-64886 Venipuncture Draw Fee 09:20:49 CAMPAIGN MANAGER CPT-10555 Venipuncture Draw Fee 16:52:15 CAMPAIGN MANAGER CPT-51003 Venipuncture Draw Fee 10:37:24 CAMPAIGN MANAGER CPT-03816 Venipuncture Draw Fee 08:21:21 CAMPAIGN MANAGER CPT-85921 Venipuncture Draw Fee 08:30:20 CAMPAIGN MANAGER CPT-82810 Venipuncture Draw Fee 14:53:21 CAMPAIGN MANAGER CPT-57428 Venipuncture Draw Fee 09:40:56 CAMPAIGN MANAGER CPT-09588 Venipuncture Draw Fee 10:30:47 CAMPAIGN MANAGER CPT-36649 Venipuncture Draw Fee 10:46:17 CAMPAIGN MANAGER CPT-14277 Venipuncture Draw Fee 11:12:45 CAMPAIGN MANAGER CPT-21822 Venipuncture Draw Fee 09:53:33 CAMPAIGN MANAGER CPT-21355 Venipuncture Draw Fee 11:53:51 CAMPAIGN MANAGER CPT-43585 Venipuncture Draw Fee 10:33:50 CAMPAIGN MANAGER CPT-60754 Venipuncture Draw Fee 10:05:01 CAMPAIGN MANAGER CPT-15327 Venipuncture Draw Fee 14:32:52 CAMPAIGN MANAGER CPT-07543 Venipuncture Draw Fee 09:46:13 CAMPAIGN MANAGER CPT-91188 Venipuncture Draw Fee 11:34:27 CAMPAIGN MANAGER CPT-40564 Venipuncture Draw Fee 13:17:16 CAMPAIGN MANAGER CPT-25709 Venipuncture Draw Fee 12:05:39 CDT CPT-32913 Venipuncture Draw Fee 12:49:12 CDT CPT-06335 Venipuncture Draw Fee 12:37:18 CDT CPT-48397 Venipuncture Draw Fee 10:57:11 CDT CPT-11241 Venipuncture Draw Fee 13:47:40 CDT CPT-43786 Venipuncture Draw Fee 10:02:17 CDT CPT-96354 TB Tubersol 17:32:32 CDT CPT-OV Office Visit 16:21:53 CDT CPT-OV Office Visit 15:49:22 CDT CPT-OV Office Visit 17:16:31 CDT CPT-OV Office Visit 10:43:31 CDT
--- OUTSIDE RECORDS SUMMARY | 2019-02-09 13:26 | XMS REPORT | Clinical Summary ---
Author Author Renaldo, Florecita Munoz Organization [facility] Address Unknown Phone Unavailable Allergies, Adverse [...] cohn MD PhD UNSPECIFIED VENOUS INSUFFICIENCY ICD-459.81 [place] ctive Adam Yates MD ADENOCARCINOMA, ASCENDING [...] 1 injection every 2 weeks 01/09 CYANOCOBALAMIN 31245203897 Active Laura Elder Active VITAMIN D3 4000 IU 1 tab 3 times daily VITAMIN D3 400 0 IU Active Hope Benavidez MD PhD Active BACTRIM DS 800-160 MG TABS 1 pill by mouth twice daily, for UTI SULFAMETHOXAZOLE-TRIMETHOPRIM 72221130646 No Longer Active Lisa Benavidez MD PhD Active PROLIA 60 MG/ML SOLN 1 shot every 6 months for osteoprosis DENOSUMAB 22367595812 Active Hope Benavidez MD PhD Active CALCIUM + D + K 750-500-40 MG-UNT-MCG TABS 1 tab by mouth tw ice daily CALCIUM-VITAMIN D-VITAMIN K 72306333015 Active Hope landers MD PhD Active DAILY VALUE MULTIVITAMIN TABS 1 tab by mouth twice daily MULTIPLE VITAMIN 49156513308 Active Hope Benavidez MD PhD Active FISH OIL 306 MG CAPS 1 tab by mouth three times daily OMEGA-3 FATTY ACIDS 93597476308 Active Hope Benavidez MD PhD Active LUTEIN 10 MG TABS 1 tab daily LUTEIN 74506386802 Act cash Hope Benavidez MD PhD Active FLORANEX PACK 1 pack three times daily, for bowel health LACTOBACILLUS 65713714245 Active Hope Benavidez MD PhD Active LOMOTIL 2.5-0.025 MG TABS 1 tab by mouth prn DIPHENOXYLATE-ATROPINE 59503960783 Active Hope Benavidez MD PhD Active TRIAMTERENE-HCTZ 37.5-25 MG TABS 1 tab by mouth daily TRIAMTERENE-HCTZ 01234458398 Active Hope Benavidez MD PhD Acti ve IRON 325 (65 FE) MG TABS 1 tab daily FERROUS SULF ATE 86881403711 Active Hope Benavidez MD PhD Active MAGNESIUM GLUCONATE 250 MG TABS 1 tab tid MAGN ESIUM GLUCONATE 02406824404 Active Adam Yates MD Active ATENOLOL 50 MG TABS 1/2 tab q other day m-w-f ATE NOLOL 87661058361 Active Hope Benavidez MD PhD Active PROPRANOLOL HCL 80 MG TABS 1 tab tue. and thur. PROPRANOLOL HCL 66793158274 Active Adam Yates MD Active CYCLOBENZAPRINE HCL 10 MG TABS 1 tablet by mouth three times daily as needed for headaches CYCLOBENZAPRINE HCL 53249785040 No Longe r Active Adam Yates MD Active OMEPRAZOLE 20 MG CPDR 1 tablet by mouth daily for GERD OMEPRAZOLE 64522050170 No Longer Active Adam Yates MD A ctive ZOFRAN 8 MG TABS 1 tab by mouth every 12 hours prn 201 05/16/09 ONDANSETRON HCL 71994791485 No Longer Active Adam Yates MD Active PHENADOZ 25 MG SUPP 1 every 4 hrs. PRN PROMETHA ZINE HCL 81766916140 No Longer Active Adam Yates MD Active POTASSIUM CHLORIDE 20 MEQ PACK by mouth twice a day prn POTASSIUM CHLORIDE 10621730277 No Longer Active Adma Yates MD Active PROMETHAZINE HCL 25 MG TABS 1 Q. 4 hr. PRN PROM ETHAZINE HCL 71930584357 No Longer Active Adam Yates MD Active INNOPRAN XL 120 MG [id number] Take one by mouth daily 2 PROPRANOLOL HCL SR BEADS 60572308319 No Longer Active Adam Yates MD A ctive FLAGYL 500 MG TABS 1 pill by mouth three times daily, for diarrh ea METRONIDAZOLE 57463477037 No Longer Active Hope Benavidez MD PhD Active DYAZIDE 37.5-25 MG CAPS 1 qd TRIAMTERENE-HC TZ 37757461089 No Longer Active Hope Benavidez MD PhD Active PROZAC 20 MG CAPS 1 q d FLUOXETINE HCL 05185 475300 No Longer Active Hope Benavidez MD PhD Active SIMVASTATIN 40 MG TABS 1 qd SIMVASTATIN 004 23226938 No Longer Active Adam Yates MD Active MELOXICAM 15 MG TABS 1 qd MELOXICAM 3424323 2648 No Longer Active Adam Yates MD Active IMODIUM A-D 2 MG TABS 2 onset at diarrhea and prn. LOPERAMIDE HCL 72742241947 Active Hope Benavidez MD PhD Active EXCEDRIN EXTRA STRENGTH 250-250-65 MG TABS 1-2 q6h PRN headache 201 04/16/21 [id number] 68646602526 Active Hope Benavidez MD PhD Active FLAGYL 500 MG TABS 1 qid METRONIDAZOLE 77645 336609 No Longer Active Adam Yates MD Active LEVAQUIN 750 MG TABS 1 qd LEVOFLOXACIN 5486 5971784 No Longer Active Adam Yates MD Active ADULT ASPIRIN LOW STRENGTH 81 MG TBDP 1 qd A SPIRIN 19071922338 Active Hope Benavidez MD PhD Active LEVAQUIN 750 MG TABS 1 qd LEVAQUIN 750 MG T ABS 530502 LEVOFLOXACIN Inactive FLAGYL 500 MG TABS 1 qid FLAGYL 500 MG TABS 076875 METRONIDAZOLE Inactive MELOXICAM 15 MG TABS 1 qd MELOXICAM 15 MG T ABS 480635 MELOXICAM Inactive SIMVASTATIN 40 MG TABS 1 qd SIMVASTATIN 40 MG TABS 754045 SIMVASTATIN Inactive PROZAC 20 MG CAPS 1 q d PROZAC 20 MG CAPS 31 0385 FLUOXETINE HCL Inactive DYAZIDE 37.5-25 MG CAPS 1 qd DYAZIDE 37.5 -25 MG CAPS 753178 TRIAMTERENE-HCTZ Inactive INNOPRAN XL 120 MG [id number] Take one by mouth daily 2 INNOPRAN XL 120 MG [id number] PROPRANOLOL HCL SR BEADS Inactive PROMETHAZINE HCL 25 MG TABS 1 Q. 4 hr. PRN PROMETHAZINE HCL 25 MG TABS 966447 PROMETHAZINE HCL Inactive POTASSIUM CHLORIDE 20 MEQ PACK by mouth twice a day prn POTASSIUM CHLORIDE 20 MEQ PACK 132837 POTASSIUM CHLORIDE Inactive PHENADOZ 25 MG SUPP 1 every 4 hrs. PRN PHENADOZ 2 5 MG SUPP 294381 PROMETHAZINE HCL Inactive ZOFRAN 8 MG TABS 1 tab by mouth every 12 hours prn 201 05/16/09 ZOFRAN 8 MG TABS 003121 ONDANSETRON HCL Inactive OMEPRAZOLE 20 MG CPDR 1 tablet by mouth daily for GERD OMEPRAZOLE 20 MG CPDR 584715 OMEPRAZOLE Inactive CYCLOBENZAPRINE HCL 10 MG TABS 1 tablet by mouth three times daily as needed for headaches CYCLOBENZAPRINE HCL 10 MG TABS 835788 CYCLOBENZAPRINE HCL Inactive FLAGYL 500 MG TABS 1 pill by mouth three times daily, for diarrh ea FLAGYL 500 MG TABS 630612 METRONIDAZOLE Inactive BACTRIM DS 800-160 MG TABS [...] Range Description Chart Maintenance: labs added to [place] et - Chemistry magnesium, serum 2.0 mg/dL Chart Maintenance: Outside labs entered on [employer] - Chemistry sodium, serum 139 mmol/L potassium, serum 3.9 mmol/L blood glucose 85 mg/dL creatinine, serum 1.26 mg/dL aspartate aminotransferase (SGOT), serum 33 U/L alanine aminotransferase (SGPT), serum 44 U/L alkaline phosphatase, serum 127 U/L Chart Maintenance: Outside labs entered on [employer] - Hematology leukocyte count, blood 4.6 10*3/mm3 hemoglobin, blood 13.6 g/dL platelet count 162 10*3/mm3 Lab Report: Basic Metabolic Panel - Chem istry sodium, serum 136 mmol/L 004-710 5613/05/02 potassium, serum 4.1 mmol/L 3.5-5.2 chloride, serum 99 mmol/L 98-107 carbon dioxide, venous blood 30.7 mmol/L 21.0-32 .0 blood glucose 79 mg/dL 65-110 calcium, serum 8.7 mg/dL 8.5-10.1 urea nitrogen, blood 11 mg/dL 7-18 creatinine, serum 1.10 mg/dL 0.60-1.30 Lab Report: [facility] - Chemistry sodium, serum 141 mmol/L potassium, serum 4.2 mmol/L blood glucose 66 mg/dL creatinine, serum 1.16 mg/dL Lab Report: [facility]/ [facility]FF[facility] - Chemistry sodium, serum 137 mmol/L potassium, serum 3.8 mmol/L blood glucose 79 mg/dL creatinine, serum 1.02 mg/dL magnesium, serum 1.2 mg/dL Lab Report: CBC W/ DIFF, [facility] - Hematology leukocyte count, [...] 11 .6-14.8 platelet count 133 10^3/MM^3 10*3/mm3 410-024 2875/01/17 leukocyte count, blood 3.1 10^3/MM^3 10*3/mm3 4.6-10.2 [...] Panel - Chemistry sodium, serum 139 mmol/L 399-503 5488/01/21 potassium, serum 3.4 mmol/L 3.5-5.2 chloride, serum [...] 0.40 mg/dL 0.00-1.00 sodium, serum 142 mmol/L 448-581 5651/01/03 potassium, serum 3.4 mmol/L 3.5-5.2 chloride, serum [...] 0.50 mg/dL 0.00-1.00 sodium, serum 138 mmol/L 308-878 7344/08/14 potassium, serum 4.0 mmol/L 3.5-5.2 chloride, serum [...] 0.40 mg/dL 0.00-1.00 sodium, serum 140 mmol/L 277-959 3774/01/06 potassium, serum 3.4 mmol/L 3.5-5.2 chloride, serum [...] 0.40 mg/dL 0.00-1.00 sodium, serum 136 mmol/L 502-239 6057/04/03 potassium, serum 3.7 mmol/L 3.5-5.2 chloride, serum [...] 0.40 mg/dL 0.00-1.00 sodium, serum 138 mmol/L 888-708 2947/01/28 potassium, serum 3.2 mmol/L 3.5-5.2 chloride, serum [...] 0.40 mg/dL 0.00-1.00 sodium, serum 140 mmol/L 661-298 8101/02/04 potassium, serum 3.6 mmol/L 3.5-5.2 chloride, serum [...] 0.70 mg/dL 0.00-1.00 sodium, serum 136 mmol/L 586-686 8343/02/11 potassium, serum 3.1 mmol/L 3.5-5.2 chloride, serum [...] 0.50 mg/dL 0.00-1.00 sodium, serum 139 mmol/L 683-576 6849/02/18 potassium, serum 3.6 mmol/L 3.5-5.2 chloride, serum [...] 11 .6-14.8 platelet count 246 10^3/MM^3 10*3/mm3 516-211 3336/02/18 leukocyte count, blood 4.0 10^3/MM^3 10*3/mm3 4.6-10.2 [...] 11 .6-14.8 platelet count 134 10^3/MM^3 10*3/mm3 195-463 2384/02/11 leukocyte count, blood 4.8 10^3/MM^3 10*3/mm3 4.6-10.2 [...] 11 .6-14.8 platelet count 102 10^3/MM^3 10*3/mm3 379-644 7742/02/04 leukocyte count, blood 3.6 10^3/MM^3 10*3/mm3 4.6-10.2 [...] 11 .6-14.8 platelet count 70 10^3/MM^3 10*3/mm3 849-923 1986/08/14 leukocyte count, blood 5.8 10^3/MM^3 10*3/mm3 4.6-10.2 [...] 11 .6-14.8 platelet count 193 10^3/MM^3 10*3/mm3 001-791 9613/01/06 leukocyte count, blood 7.6 10^3/MM^3 10*3/mm3 4.6-10.2 [...] 11 .6-14.8 platelet count 132 10^3/MM^3 10*3/mm3 418-967 7105/01/03 leukocyte count, blood 8.1 10^3/MM^3 10*3/mm3 4.6-10.2 [...] 11 .6-14.8 platelet count 96 10^3/MM^3 10*3/mm3 940-490 9347/01/28 leukocyte count, blood 4.2 10^3/MM^3 10*3/mm3 4.6-10.2 [...] 11 .6-14.8 platelet count 73 10^3/MM^3 10*3/mm3 826-850 6172/01/21 leukocyte count, blood 4.9 10^3/MM^3 10*3/mm3 4.6-10.2 [...] Diff/Morphology - Chemistry sodium, serum 141 mmol/L 963-646 2689/01/14 potassium, serum 3.9 mmol/L 3.5-5.2 chloride, serum [...] 0.50 mg/dL 0.00-1.00 sodium, serum 138 mmol/L 825-590 0155/12/24 potassium, serum 3.7 mmol/L 3.5-5.2 chloride, serum [...] 11 .6-14.8 platelet count 66 10^3/MM^3 10*3/mm3 950-698 7160/01/14 leukocyte count, blood 6.2 10^3/MM^3 10*3/mm3 4.6-10.2 [...] serum 1.24 mg/dL Lab Report: Comp. Metabolic Panel, CBC W /DIFF, Manual Diff/Morphology - Chemistry sodium, serum 142 mmol/L 285-626 1939/12/31 potassium, serum 3.6 mmol/L 3.5-5.2 chloride, serum [...] Panel - Chemistry cholesterol, serum 209 mg/dL 051-774 6107/09/11 triglyceride, serum, fasting 113 mg/dL 30-200 HDL [...] semiquantitative 7.0 5.0-8.5 Lab Report: VITAMIN D, 25-HYDROXY/74407, MAGNESIUM/622 - Chemistry vitamin D 25-hydroxy, serum 41 ng/mL 30-100 Encounters Code Encounter Date Provider Facility CPT-12415 Level 4 Est. 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 CPT-37765 Abx/Therapy Injection 09:25:05 [employer] CPT-G0008 Administration of Influenza Virus Vaccine 13:36:47 CDT CPT-12255 Fluzone High-Dose Intramuscular Suspension 11/15 13:36:47 CDT CPT-J0897 Prolia 60 mg 08:50:41 CDT CPT-36128 Abx/Therapy Injection 08:50:41 CDT CPT-98043 Bone Density 12:06:12 CDT CPT-53377 Bone Density 08:54:40 CDT CPT-OV Office Visit 15:37:02 CDT CPT-79968 Postop F/U Visit 15:47:49 CDT CPT-48872 Postop F/U Visit 15:21:02 CDT [facility] Transitional Care Mgmt-High 07:52:27 CDT 20 20/06/01 CPT-91918 Venipuncture Draw Fee 13:51:18 CDT CPT-83746 Venipuncture Draw Fee 10:14:55 [employer] CPT-16992 Venipuncture Draw Fee 13:39:45 [employer] CPT-OV Office Visit 15:11:22 [employer] CPT-28816 Venipuncture Draw Fee 09:20:49 [employer] CPT-70591 Venipuncture Draw Fee 16:52:15 [employer] CPT-01462 Venipuncture Draw Fee 10:37:24 [employer] CPT-02900 Venipuncture Draw Fee 08:21:21 [employer] CPT-01308 Venipuncture Draw Fee 08:30:20 [employer] CPT-72609 Venipuncture Draw Fee 14:53:21 [employer] CPT-92230 Venipuncture Draw Fee 09:40:56 [employer] CPT-23809 Venipuncture Draw Fee 10:30:47 [employer] CPT-97232 Venipuncture Draw Fee 10:46:17 [employer] CPT-37229 Venipuncture Draw Fee 11:12:45 [employer] CPT-19422 Venipuncture Draw Fee 09:53:33 [employer] CPT-54032 Venipuncture Draw Fee 11:53:51 [employer] CPT-48145 Venipuncture Draw Fee 10:33:50 [employer] CPT-56222 Venipuncture Draw Fee 10:05:01 [employer] CPT-47702 Venipuncture Draw Fee 14:32:52 [employer] CPT-76550 Venipuncture Draw Fee 09:46:13 [employer] CPT-11599 Venipuncture Draw Fee 11:34:27 [employer] CPT-56481 Venipuncture Draw Fee 13:17:16 [employer] CPT-25716 Venipuncture Draw Fee 12:05:39 CDT CPT-17270 Venipuncture Draw Fee 12:49:12 CDT CPT-71008 Venipuncture Draw Fee 12:37:18 CDT CPT-14252 Venipuncture Draw Fee 10:57:11 CDT CPT-81301 Venipuncture Draw Fee 13:47:40 CDT CPT-58214 Venipuncture Draw Fee 10:02:17 CDT CPT-68432 TB Tubersol 17:32:32 CDT CPT-OV Office Visit 16:21:53 CDT CPT-OV Office Visit 15:49:22 CDT CPT-OV Office Visit 17:16:31 CDT CPT-OV Office Visit 10:43:31 CDT
--- OUTSIDE RECORDS SUMMARY | 2019-02-09 13:27 | XMS REPORT | Clinical Summary ---
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 Dick Yates [...] 1 injection every 2 weeks 01/09 CYANOCOBALAMIN 56579012545 Active Laura Elder Active VITAMIN D3 4000 IU 1 tab 3 times daily VITAMIN D3 400 0 IU Active Hope Benavidez MD PhD Active BACTRIM DS 800-160 MG TABS 1 pill by mouth twice daily, for UTI SULFAMETHOXAZOLE-TRIMETHOPRIM [id number] No Longer Active A attila Benavidez MD PhD Active PROLIA 60 MG/ML SOLN 1 shot every 6 months for osteoprosis DENOSUMAB 33599774568 Active Hope Benavidez MD PhD Active CALCIUM + D + K 750-500-40 MG-UNT-MCG TABS 1 tab by mouth tw ice daily CALCIUM-VITAMIN D-VITAMIN K 64775922610 Active Hope landers MD PhD Active DAILY VALUE MULTIVITAMIN TABS 1 tab by mouth twice daily MULTIPLE VITAMIN 75246173068 Active Hope Benavidez MD PhD Active FISH OIL 306 MG CAPS 1 tab by mouth three times daily OMEGA-3 FATTY ACIDS 27710020596 Active Hope Benavidez MD PhD Active LUTEIN 10 MG TABS 1 tab daily LUTEIN 44861696572 Act cash Hope Benavidez MD PhD Active FLORANEX PACK 1 pack three times daily, for bowel health LACTOBACILLUS 63804138014 Active Hope Benavidez MD PhD Active LOMOTIL 2.5-0.025 MG TABS 1 tab by mouth prn DIPHENOXYLATE-ATROPINE 40664112274 Active Hope Benavidez MD PhD Active TRIAMTERENE-HCTZ 37.5-25 MG TABS 1 tab by mouth daily TRIAMTERENE-HCTZ 19809150102 Active Hope Benavidez MD PhD Acti ve IRON 325 (65 FE) MG TABS 1 tab daily FERROUS SULF ATE 66886877615 Active Hope Benavidez MD PhD Active MAGNESIUM GLUCONATE 250 MG TABS 1 tab tid MAGN ESIUM GLUCONATE 36761916218 Active Adam Yates MD Active ATENOLOL 50 MG TABS 1/2 tab q other day m-w-f ATE NOLOL 00905222851 Active Hope Benavidez MD PhD Active PROPRANOLOL HCL 80 MG TABS 1 tab tue. and thur. PROPRANOLOL HCL 97160139371 Active Adam Yates MD Active CYCLOBENZAPRINE HCL 10 MG TABS 1 tablet by mouth three times daily as needed for headaches CYCLOBENZAPRINE HCL 19451561149 No Longe r Active Adam Yates MD Active OMEPRAZOLE 20 MG CPDR 1 tablet by mouth daily for GERD OMEPRAZOLE 51722536153 No Longer Active Adam Yates MD A ctive ZOFRAN 8 MG TABS 1 tab by mouth every 12 hours prn 201 05/16/09 ONDANSETRON HCL 95859628909 No Longer Active Adam Yates MD Active PHENADOZ 25 MG SUPP 1 every 4 hrs. PRN PROMETHA ZINE HCL 34260395085 No Longer Active Adam Yates MD Active POTASSIUM CHLORIDE 20 MEQ PACK by mouth twice a day prn POTASSIUM CHLORIDE 65382289455 No Longer Active Adam Yates MD Active PROMETHAZINE HCL 25 MG TABS 1 Q. 4 hr. PRN PROM ETHAZINE HCL 25587823598 No Longer Active Adam Yates MD Active INNOPRAN XL 120 MG [id number] Take one by mouth daily 2 PROPRANOLOL HCL SR BEADS 50303869886 No Longer Active Adam Yates MD A ctive FLAGYL 500 MG TABS 1 pill by mouth three times daily, for diarrh ea METRONIDAZOLE 25608978355 No Longer Active Hope Benavidez MD PhD Active DYAZIDE 37.5-25 MG CAPS 1 qd TRIAMTERENE-HC TZ 44928298155 No Longer Active Hope Benavidez MD PhD Active PROZAC 20 MG CAPS 1 q d FLUOXETINE HCL 42819 496718 No Longer Active Hope Benavidez MD PhD Active SIMVASTATIN 40 MG TABS 1 qd SIMVASTATIN 004 46340055 No Longer Active Adam Yates MD Active MELOXICAM 15 MG TABS 1 qd MELOXICAM 5560150 8312 No Longer Active Adam Yates MD Active IMODIUM A-D 2 MG TABS 2 onset at diarrhea and prn. LOPERAMIDE HCL 45892287425 Active Hope Benavidez MD PhD Active EXCEDRIN EXTRA STRENGTH 250-250-65 MG TABS 1-2 q6h PRN headache 201 04/16/21 [id number] 55918527403 Active Hope Benavidez MD PhD Active FLAGYL 500 MG TABS 1 qid METRONIDAZOLE 21533 289818 No Longer Active Adam Yates MD Active LEVAQUIN 750 MG TABS 1 qd LEVOFLOXACIN 5486 4566881 No Longer Active Adam Yates MD Active ADULT ASPIRIN LOW STRENGTH 81 MG TBDP 1 qd A SPIRIN 88960164278 Active Hope Benavidez MD PhD Active LEVAQUIN 750 MG TABS 1 qd LEVAQUIN 750 MG T ABS 007632 LEVOFLOXACIN Inactive FLAGYL 500 MG TABS 1 qid FLAGYL 500 MG TABS 641574 METRONIDAZOLE Inactive MELOXICAM 15 MG TABS 1 qd MELOXICAM 15 MG T ABS 804033 MELOXICAM Inactive SIMVASTATIN 40 MG TABS 1 qd SIMVASTATIN 40 MG TABS 834105 SIMVASTATIN Inactive PROZAC 20 MG CAPS 1 q d PROZAC 20 MG CAPS 31 0385 FLUOXETINE HCL Inactive DYAZIDE 37.5-25 MG CAPS 1 qd DYAZIDE 37.5 -25 MG CAPS 212981 TRIAMTERENE-HCTZ Inactive INNOPRAN XL 120 MG [id number] Take one by mouth daily 2 INNOPRAN XL 120 MG [id number] PROPRANOLOL HCL SR BEADS Inactive PROMETHAZINE HCL 25 MG TABS 1 Q. 4 hr. PRN PROMETHAZINE HCL 25 MG TABS 912901 PROMETHAZINE HCL Inactive POTASSIUM CHLORIDE 20 MEQ PACK by mouth twice a day prn POTASSIUM CHLORIDE 20 MEQ PACK 105287 POTASSIUM CHLORIDE Inactive PHENADOZ 25 MG SUPP 1 every 4 hrs. PRN PHENADOZ 2 5 MG SUPP 609242 PROMETHAZINE HCL Inactive ZOFRAN 8 MG TABS 1 tab by mouth every 12 hours prn 201 05/16/09 ZOFRAN 8 MG TABS 065864 ONDANSETRON HCL Inactive OMEPRAZOLE 20 MG CPDR 1 tablet by mouth daily for GERD OMEPRAZOLE 20 MG CPDR 302308 OMEPRAZOLE Inactive CYCLOBENZAPRINE HCL 10 MG TABS 1 tablet by mouth three times daily as needed for headaches CYCLOBENZAPRINE HCL 10 MG TABS 952000 CYCLOBENZAPRINE HCL Inactive FLAGYL 500 MG TABS 1 pill by mouth three times daily, for diarrh ea FLAGYL 500 MG TABS 466313 METRONIDAZOLE Inactive BACTRIM DS 800-160 MG TABS [...] Range Description Chart Maintenance: labs added to [facility] - Chemistry magnesium, serum 2.0 mg/dL Chart Maintenance: Outside labs entered on [facility] - Chemistry sodium, serum 139 mmol/L potassium, serum 3.9 mmol/L blood glucose 85 mg/dL creatinine, serum 1.26 mg/dL aspartate aminotransferase (SGOT), serum 33 U/L alanine aminotransferase (SGPT), serum 44 U/L alkaline phosphatase, serum 127 U/L Chart Maintenance: Outside labs entered on [employer] - Hematology leukocyte count, blood 4.6 10*3/mm3 hemoglobin, blood 13.6 g/dL platelet count 162 10*3/mm3 Lab Report: Basic Metabolic Panel - Chem istry sodium, serum 136 mmol/L 138-577 1724/05/02 potassium, serum 4.1 mmol/L 3.5-5.2 chloride, serum 99 mmol/L 98-107 carbon dioxide, venous blood 30.7 mmol/L 21.0-32 .0 blood glucose 79 mg/dL 65-110 calcium, serum 8.7 mg/dL 8.5-10.1 urea nitrogen, blood 11 mg/dL 7-18 creatinine, serum 1.10 mg/dL 0.60-1.30 Lab Report: [facility] - Chemistry sodium, serum 141 mmol/L potassium, serum 4.2 mmol/L blood glucose 66 mg/dL creatinine, serum 1.16 mg/dL Lab Report: CBC W/ DIFF, [facility] - Chemistry sodium, serum 137 mmol/L potassium, serum 3.8 mmol/L blood glucose 79 mg/dL creatinine, serum 1.02 mg/dL magnesium, serum 1.2 mg/dL Lab Report: CBC W/ DIFF, [facility] - Hematology leukocyte [...] 11 .6-14.8 platelet count 133 10^3/MM^3 10*3/mm3 694-526 2225/01/17 leukocyte count, blood 3.1 10^3/MM^3 10*3/mm3 4.6-10.2 [...] Panel - Chemistry sodium, serum 139 mmol/L 600-985 8331/01/21 potassium, serum 3.4 mmol/L 3.5-5.2 chloride, serum [...] 0.40 mg/dL 0.00-1.00 sodium, serum 142 mmol/L 000-510 3525/01/03 potassium, serum 3.4 mmol/L 3.5-5.2 chloride, serum [...] 0.50 mg/dL 0.00-1.00 sodium, serum 140 mmol/L 888-767 9981/01/06 potassium, serum 3.4 mmol/L 3.5-5.2 sodium, serum 138 mmol/L 919-495 7147/08/14 potassium, serum 4.0 mmol/L 3.5-5.2 chloride, serum [...] 0.40 mg/dL 0.00-1.00 sodium, serum 136 mmol/L 050-904 2879/04/03 potassium, serum 3.7 mmol/L 3.5-5.2 chloride, serum [...] 0.40 mg/dL 0.00-1.00 sodium, serum 138 mmol/L 582-209 2698/01/28 potassium, serum 3.2 mmol/L 3.5-5.2 chloride, serum [...] 0.40 mg/dL 0.00-1.00 sodium, serum 140 mmol/L 835-550 5898/02/04 potassium, serum 3.6 mmol/L 3.5-5.2 chloride, serum [...] 0.70 mg/dL 0.00-1.00 sodium, serum 136 mmol/L 538-371 6801/02/11 potassium, serum 3.1 mmol/L 3.5-5.2 chloride, serum [...] 0.50 mg/dL 0.00-1.00 sodium, serum 139 mmol/L 846-940 6520/02/18 potassium, serum 3.6 mmol/L 3.5-5.2 chloride, serum [...] 11 .6-14.8 platelet count 246 10^3/MM^3 10*3/mm3 042-718 4607/02/18 leukocyte count, blood 4.0 10^3/MM^3 10*3/mm3 4.6-10.2 [...] 11 .6-14.8 platelet count 134 10^3/MM^3 10*3/mm3 379-685 3497/02/11 leukocyte count, blood 4.8 10^3/MM^3 10*3/mm3 4.6-10.2 [...] 11 .6-14.8 platelet count 102 10^3/MM^3 10*3/mm3 729-140 8200/02/04 leukocyte count, blood 3.6 10^3/MM^3 10*3/mm3 4.6-10.2 [...] 11 .6-14.8 platelet count 70 10^3/MM^3 10*3/mm3 727-300 3105/08/14 leukocyte count, blood 5.8 10^3/MM^3 10*3/mm3 4.6-10.2 [...] 11 .6-14.8 platelet count 193 10^3/MM^3 10*3/mm3 455-312 9363/01/03 neutrophils as percent of blood leukocytes 76.2 % 42.2-75.2 monocytes as percent of blood leukocytes 8.9 % 1.7-9.3 lymphocytes as percent of blood leukocytes 12.9 % 20.5-51.1 erythrocyte (RBC) count 2.37 10^6/MM^3 10*6/mm3 4.04-5.4 8 hemoglobin, blood 8.1 g/dL 12.0-16.0 leukocyte count, blood 8.1 10^3/MM^3 10*3/mm3 4.6-10.2 hematocrit, blood 25.1 % 36.0-46.0 mean corpuscular volume, RBC 106 fL 80-97 mean corpuscular hemoglobin, RBC 34.3 pg 27. 0-31.2 mean corpuscular hemoglobin concentration, RBC 32.5 G/DL % 31.8-35.4 red blood cell distribution width 20.7 % 11 .6-14.8 platelet count 96 10^3/MM^3 10*3/mm3 401-585 4950/01/06 leukocyte count, blood 7.6 10^3/MM^3 10*3/mm3 4.6-10.2 [...] 11 .6-14.8 platelet count 132 10^3/MM^3 10*3/mm3 485-915 6346/01/28 leukocyte count, blood 4.2 10^3/MM^3 10*3/mm3 4.6-10.2 [...] 11 .6-14.8 platelet count 73 10^3/MM^3 10*3/mm3 764-614 9799/01/21 leukocyte count, blood 4.9 10^3/MM^3 10*3/mm3 4.6-10.2 [...] Diff/Morphology - Chemistry sodium, serum 141 mmol/L 200-932 4113/01/14 potassium, serum 3.9 mmol/L 3.5-5.2 chloride, serum [...] 0.50 mg/dL 0.00-1.00 sodium, serum 138 mmol/L 266-497 1331/12/24 potassium, serum 3.7 mmol/L 3.5-5.2 chloride, serum [...] Manual Diff/Morphology - Hematology erythrocyte (RBC) count 2.72 10^6/MM^3 10*6/mm3 4.04-5.4 8 lymphocytes as percent of blood leukocytes 7.7 % 20.5-51.1 monocytes as percent of blood leukocytes 4.3 % 1.7-9.3 neutrophils as percent of blood leukocytes ----- % % 42.2-75.2 leukocyte count, blood 14.0 10^3/MM^3 10*3/mm3 4.6-10.2 hemoglobin, blood 8.7 g/dL 12.0-16.0 hematocrit, blood 27.0 % 36.0-46.0 mean corpuscular volume, RBC 99 fL 80-97 mean corpuscular hemoglobin, RBC 32.0 pg 27. 0-31.2 mean corpuscular hemoglobin concentration, RBC 32.3 G/DL % 31.8-35.4 red blood cell distribution width 18.8 % 11 .6-14.8 platelet count 66 10^3/MM^3 10*3/mm3 544-662 2608/01/14 leukocyte count, blood 6.2 10^3/MM^3 10*3/mm3 4.6-10.2 [...] CBC W /DIFF, Manual Diff/Morphology - Chemistry potassium, serum 3.6 mmol/L 3.5-5.2 chloride, serum 101 mmol/L 98-107 carbon dioxide, venous blood 30.0 mmol/L 21.0-32 .0 blood glucose 101 mg/dL 65-110 urea nitrogen, blood 36 mg/dL 7-18 sodium, serum 142 mmol/L 740-714 7222/12/31 creatinine, serum 2.20 mg/dL 0.60-1.30 alanine aminotransferase [...] Panel - Chemistry cholesterol, serum 209 mg/dL 640-277 0644/09/11 triglyceride, serum, fasting 113 mg/dL 30-200 HDL [...] semiquantitative 7.0 5.0-8.5 Lab Report: VITAMIN D, 25-HYDROXY/07134, MAGNESIUM/622 - Chemistry vitamin D 25-hydroxy, serum 41 ng/mL 30-100 Encounters Code Encounter Date Provider Facility CPT-05171 Level 4 Est. Patient 19:08:42 HOME HEALTH CARE RESPIRATORY THERAPIST Hope cohn MD PhD [facility] CPT-12477 Level 4 Est. Patient 20:04:51 CDT Hope cohn MD PhD [facility] CPT-25752 Level 3 New Patient 01:46:11 HOME HEALTH CARE RESPIRATORY THERAPIST Hope landers MD PhD [facility] Procedures Code Procedure Name Date Entry Date Standard Desc ription CPT-J3420 Vitamin B12 1000mcg (Cyanocobalamin) 09:47:34 HOME HEALTH CARE RESPIRATORY THERAPIST CPT-62973 Abx/Therapy Injection 09:47:34 HOME HEALTH CARE RESPIRATORY THERAPIST CPT-J3420 Vitamin B12 1000mcg (Cyanocobalamin) 14:35:50 HOME HEALTH CARE RESPIRATORY THERAPIST CPT-J3420 Vitamin B12 1000mcg (Cyanocobalamin) 09:25:05 HOME HEALTH CARE RESPIRATORY THERAPIST CPT-23384 Abx/Therapy Injection 09:25:05 HOME HEALTH CARE RESPIRATORY THERAPIST CPT-G0008 Administration of Influenza Virus Vaccine 13:36:47 CDT CPT-69031 Fluzone High-Dose Intramuscular Suspension 11/15 13:36:47 CDT CPT-J0897 Prolia 60 mg 08:50:41 CDT CPT-46605 Abx/Therapy Injection 08:50:41 CDT CPT-71077 Bone Density 12:06:12 CDT CPT-92033 Bone Density 08:54:40 CDT CPT-OV Office Visit 15:37:02 CDT CPT-37784 Postop F/U Visit 15:47:49 CDT CPT-10920 Postop F/U Visit 15:21:02 CDT CPT-[facility] Transitional Care Mgmt-High 07:52:27 CDT 20 20/06/01 CPT-29016 Venipuncture Draw Fee 13:51:18 CDT CPT-28367 Venipuncture Draw Fee 10:14:55 HOME HEALTH CARE RESPIRATORY THERAPIST CPT-25099 Venipuncture Draw Fee 13:39:45 HOME HEALTH CARE RESPIRATORY THERAPIST CPT-OV Office Visit 15:11:22 HOME HEALTH CARE RESPIRATORY THERAPIST CPT-26822 Venipuncture Draw Fee 09:20:49 HOME HEALTH CARE RESPIRATORY THERAPIST CPT-08412 Venipuncture Draw Fee 16:52:15 HOME HEALTH CARE RESPIRATORY THERAPIST CPT-04605 Venipuncture Draw Fee 10:37:24 HOME HEALTH CARE RESPIRATORY THERAPIST CPT-48902 Venipuncture Draw Fee 08:21:21 HOME HEALTH CARE RESPIRATORY THERAPIST CPT-37135 Venipuncture Draw Fee 08:30:20 HOME HEALTH CARE RESPIRATORY THERAPIST CPT-49528 Venipuncture Draw Fee 14:53:21 HOME HEALTH CARE RESPIRATORY THERAPIST CPT-90767 Venipuncture Draw Fee 09:40:56 HOME HEALTH CARE RESPIRATORY THERAPIST CPT-84345 Venipuncture Draw Fee 10:30:47 HOME HEALTH CARE RESPIRATORY THERAPIST CPT-13971 Venipuncture Draw Fee 10:46:17 HOME HEALTH CARE RESPIRATORY THERAPIST CPT-71486 Venipuncture Draw Fee 11:12:45 HOME HEALTH CARE RESPIRATORY THERAPIST CPT-12984 Venipuncture Draw Fee 09:53:33 HOME HEALTH CARE RESPIRATORY THERAPIST CPT-24624 Venipuncture Draw Fee 11:53:51 HOME HEALTH CARE RESPIRATORY THERAPIST CPT-28727 Venipuncture Draw Fee 10:33:50 HOME HEALTH CARE RESPIRATORY THERAPIST CPT-13623 Venipuncture Draw Fee 10:05:01 HOME HEALTH CARE RESPIRATORY THERAPIST CPT-56241 Venipuncture Draw Fee 14:32:52 HOME HEALTH CARE RESPIRATORY THERAPIST CPT-92855 Venipuncture Draw Fee 09:46:13 HOME HEALTH CARE RESPIRATORY THERAPIST CPT-25142 Venipuncture Draw Fee 11:34:27 HOME HEALTH CARE RESPIRATORY THERAPIST CPT-87954 Venipuncture Draw Fee 13:17:16 HOME HEALTH CARE RESPIRATORY THERAPIST CPT-17192 Venipuncture Draw Fee 12:05:39 CDT CPT-19961 Venipuncture Draw Fee 12:49:12 CDT CPT-17003 Venipuncture Draw Fee 12:37:18 CDT CPT-94311 Venipuncture Draw Fee 10:57:11 CDT CPT-53591 Venipuncture Draw Fee 13:47:40 CDT CPT-09431 Venipuncture Draw Fee 10:02:17 CDT CPT-64957 TB Tubersol 17:32:32 CDT CPT-OV Office Visit 16:21:53 CDT CPT-OV Office Visit 15:49:22 CDT CPT-OV Office Visit 17:16:31 CDT CPT-OV Office Visit 10:43:31 CDT
--- OUTSIDE RECORDS SUMMARY | 2019-02-09 13:27 | XMS REPORT | Clinical Summary ---
Author Author Renaldo, Florecita Munoz Organization [facility] Address Unknown Phone Unavailable Allergies, Adverse [...] cohn MD PhD UNSPECIFIED VENOUS INSUFFICIENCY ICD-459.81 [place] ctive Adam Yates MD ADENOCARCINOMA, ASCENDING COLON [...] 1 injection every 2 weeks 01/09 CYANOCOBALAMIN 60625757649 Active Laura Elder Active VITAMIN D3 4000 IU 1 tab 3 times daily VITAMIN D3 400 0 IU Active Hope Benavidez MD PhD Active BACTRIM DS 800-160 MG TABS 1 pill by mouth twice daily, for UTI SULFAMETHOXAZOLE-TRIMETHOPRIM 09779930538 No Longer Active Lisa Benavidez MD PhD Active PROLIA 60 MG/ML SOLN 1 shot every 6 months for osteoprosis DENOSUMAB 40518722817 Active Hope Benavidez MD PhD Active CALCIUM + D + K 750-500-40 MG-UNT-MCG TABS 1 tab by mouth tw ice daily CALCIUM-VITAMIN D-VITAMIN K 87128646881 Active Hope landers MD PhD Active DAILY VALUE MULTIVITAMIN TABS 1 tab by mouth twice daily MULTIPLE VITAMIN 55276234813 Active Hope Benavidez MD PhD Active FISH OIL 306 MG CAPS 1 tab by mouth three times daily OMEGA-3 FATTY ACIDS 08578175574 Active Hope Benavidez MD PhD Active LUTEIN 10 MG TABS 1 tab daily LUTEIN 63055788632 Act cash Hope Benavidez MD PhD Active FLORANEX PACK 1 pack three times daily, for bowel health LACTOBACILLUS 45746287038 Active Hope Benavidez MD PhD Active LOMOTIL 2.5-0.025 MG TABS 1 tab by mouth prn DIPHENOXYLATE-ATROPINE 72688440601 Active Hope Benavidez MD PhD Active TRIAMTERENE-HCTZ 37.5-25 MG TABS 1 tab by mouth daily TRIAMTERENE-HCTZ 49795414418 Active Hope Benavidez MD PhD Acti ve IRON 325 (65 FE) MG TABS 1 tab daily FERROUS SULF ATE 45817068428 Active Hope Benavidez MD PhD Active MAGNESIUM GLUCONATE 250 MG TABS 1 tab tid MAGN ESIUM GLUCONATE 56161707050 Active Adam Yates MD Active ATENOLOL 50 MG TABS 1/2 tab q other day m-w-f ATE NOLOL 52343945677 Active Hope Benavidez MD PhD Active PROPRANOLOL HCL 80 MG TABS 1 tab tue. and thur. PROPRANOLOL HCL 24266793291 Active Adam Yates MD Active CYCLOBENZAPRINE HCL 10 MG TABS 1 tablet by mouth three times daily as needed for headaches CYCLOBENZAPRINE HCL 31976577123 No Longe r Active Adam Yates MD Active OMEPRAZOLE 20 MG CPDR 1 tablet by mouth daily for GERD OMEPRAZOLE 00727270488 No Longer Active Adam Yates MD A ctive ZOFRAN 8 MG TABS 1 tab by mouth every 12 hours prn 201 05/16/09 ONDANSETRON HCL 72724845792 No Longer Active Adam Yates MD Active PHENADOZ 25 MG SUPP 1 every 4 hrs. PRN PROMETHA ZINE HCL 10967732155 No Longer Active Adam Yates MD Active POTASSIUM CHLORIDE 20 MEQ PACK by mouth twice a day prn POTASSIUM CHLORIDE 37840208663 No Longer Active Adam Yates MD Active PROMETHAZINE HCL 25 MG TABS 1 Q. 4 hr. PRN PROM ETHAZINE HCL 17160387402 No Longer Active Adam Yates MD Active INNOPRAN XL 120 MG [id number] Take one by mouth daily 2 PROPRANOLOL HCL SR BEADS 68063081728 No Longer Active Adam Yates MD A ctive FLAGYL 500 MG TABS 1 pill by mouth three times daily, for diarrh ea METRONIDAZOLE 35153445846 No Longer Active Hope Benavidez MD PhD Active DYAZIDE 37.5-25 MG CAPS 1 qd TRIAMTERENE-HC TZ 28306892405 No Longer Active Hope Benavidez MD PhD Active PROZAC 20 MG CAPS 1 q d FLUOXETINE HCL 58645 031621 No Longer Active Hope Benavidez MD PhD Active SIMVASTATIN 40 MG TABS 1 qd SIMVASTATIN 004 54480516 No Longer Active Adam Yates MD Active MELOXICAM 15 MG TABS 1 qd MELOXICAM 0101249 8546 No Longer Active Adam Yates MD Active IMODIUM A-D 2 MG TABS 2 onset at diarrhea and prn. LOPERAMIDE HCL 79012772083 Active Hope Benavidez MD PhD Active EXCEDRIN EXTRA STRENGTH 250-250-65 MG TABS 1-2 q6h PRN headache 201 04/16/21 [id number] 22981156903 Active Hope Benavidez MD PhD Active FLAGYL 500 MG TABS 1 qid METRONIDAZOLE 70194 294948 No Longer Active Adam Yates MD Active LEVAQUIN 750 MG TABS 1 qd LEVOFLOXACIN 5486 6335048 No Longer Active Adam Yates MD Active ADULT ASPIRIN LOW STRENGTH 81 MG TBDP 1 qd A SPIRIN 59792193028 Active Hope Benavidez MD PhD Active LEVAQUIN 750 MG TABS 1 qd LEVAQUIN 750 MG T ABS 888293 LEVOFLOXACIN Inactive FLAGYL 500 MG TABS 1 qid FLAGYL 500 MG TABS 286472 METRONIDAZOLE Inactive MELOXICAM 15 MG TABS 1 qd MELOXICAM 15 MG T ABS 469628 MELOXICAM Inactive SIMVASTATIN 40 MG TABS 1 qd SIMVASTATIN 40 MG TABS 934939 SIMVASTATIN Inactive PROZAC 20 MG CAPS 1 q d PROZAC 20 MG CAPS 31 0385 FLUOXETINE HCL Inactive DYAZIDE 37.5-25 MG CAPS 1 qd DYAZIDE 37.5 -25 MG CAPS 528572 TRIAMTERENE-HCTZ Inactive INNOPRAN XL 120 MG [id number] Take one by mouth daily 2 INNOPRAN XL 120 MG [id number] PROPRANOLOL HCL SR BEADS Inactive PROMETHAZINE HCL 25 MG TABS 1 Q. 4 hr. PRN PROMETHAZINE HCL 25 MG TABS 564885 PROMETHAZINE HCL Inactive POTASSIUM CHLORIDE 20 MEQ PACK by mouth twice a day prn POTASSIUM CHLORIDE 20 MEQ PACK 092691 POTASSIUM CHLORIDE Inactive PHENADOZ 25 MG SUPP 1 every 4 hrs. PRN PHENADOZ 2 5 MG SUPP 121960 PROMETHAZINE HCL Inactive ZOFRAN 8 MG TABS 1 tab by mouth every 12 hours prn 201 05/16/09 ZOFRAN 8 MG TABS 903529 ONDANSETRON HCL Inactive OMEPRAZOLE 20 MG CPDR 1 tablet by mouth daily for GERD OMEPRAZOLE 20 MG CPDR 523253 OMEPRAZOLE Inactive CYCLOBENZAPRINE HCL 10 MG TABS 1 tablet by mouth three times daily as needed for headaches CYCLOBENZAPRINE HCL 10 MG TABS 224628 CYCLOBENZAPRINE HCL Inactive FLAGYL 500 MG TABS 1 pill by mouth three times daily, for diarrh ea FLAGYL 500 MG TABS 830726 METRONIDAZOLE Inactive BACTRIM DS 800-160 MG TABS [...] Range Description Chart Maintenance: labs added to [employer] [facility] - Chemistry magnesium, serum 2.0 mg/dL Chart Maintenance: Outside labs entered on [employer] - Chemistry sodium, serum 139 mmol/L potassium, serum 3.9 mmol/L blood glucose 85 mg/dL creatinine, serum 1.26 mg/dL aspartate aminotransferase (SGOT), serum 33 U/L alanine aminotransferase (SGPT), serum 44 U/L alkaline phosphatase, serum 127 U/L Chart Maintenance: Outside labs entered on [employer] - Hematology leukocyte count, blood 4.6 10*3/mm3 hemoglobin, blood 13.6 g/dL platelet count 162 10*3/mm3 Lab Report: Basic Metabolic Panel - Chem istry sodium, serum 136 mmol/L 212-168 9167/05/02 potassium, serum 4.1 mmol/L 3.5-5.2 chloride, serum 99 mmol/L 98-107 carbon dioxide, venous blood 30.7 mmol/L 21.0-32 .0 blood glucose 79 mg/dL 65-110 calcium, serum 8.7 mg/dL 8.5-10.1 urea nitrogen, blood 11 mg/dL 7-18 creatinine, serum 1.10 mg/dL 0.60-1.30 Lab Report: [facility] - Chemistry sodium, serum 141 mmol/L potassium, serum 4.2 mmol/L blood glucose 66 mg/dL creatinine, serum 1.16 mg/dL Lab Report: CBC W/ DIFF, [facility] - Chemistry sodium, serum 137 mmol/L potassium, serum 3.8 mmol/L blood glucose 79 mg/dL creatinine, serum 1.02 mg/dL magnesium, serum 1.2 mg/dL Lab Report: CBC W/ DIFF, [facility], [facility], AN AEROBIC CX - Hematology leukocyte [...] 11 .6-14.8 platelet count 102 10^3/MM^3 10*3/mm3 035-004 8294/01/08 leukocyte count, blood 9.0 10^3/MM^3 10*3/mm3 4.6-10.2 [...] 11 .6-14.8 platelet count 133 10^3/MM^3 10*3/mm3 193-848 0531/01/17 leukocyte count, blood 3.1 10^3/MM^3 10*3/mm3 4.6-10.2 [...] Panel - Chemistry sodium, serum 139 mmol/L 135-124 1761/01/21 potassium, serum 3.4 mmol/L 3.5-5.2 chloride, serum [...] 0.40 mg/dL 0.00-1.00 sodium, serum 138 mmol/L 455-294 7010/01/28 potassium, serum 3.2 mmol/L 3.5-5.2 chloride, serum [...] 0.40 mg/dL 0.00-1.00 sodium, serum 140 mmol/L 647-888 7990/02/04 potassium, serum 3.6 mmol/L 3.5-5.2 chloride, serum [...] 0.70 mg/dL 0.00-1.00 sodium, serum 136 mmol/L 648-844 1166/02/11 potassium, serum 3.1 mmol/L 3.5-5.2 chloride, serum [...] 0.50 mg/dL 0.00-1.00 sodium, serum 139 mmol/L 133-842 6260/02/18 potassium, serum 3.6 mmol/L 3.5-5.2 chloride, serum [...] 0.50 mg/dL 0.00-1.00 sodium, serum 140 mmol/L 015-739 4748/01/06 potassium, serum 3.4 mmol/L 3.5-5.2 chloride, serum [...] 0.40 mg/dL 0.00-1.00 sodium, serum 136 mmol/L 901-410 2965/04/03 potassium, serum 3.7 mmol/L 3.5-5.2 chloride, serum [...] 0.40 mg/dL 0.00-1.00 sodium, serum 142 mmol/L 703-460 2238/01/03 potassium, serum 3.4 mmol/L 3.5-5.2 chloride, serum [...] 0.50 mg/dL 0.00-1.00 sodium, serum 139 mmol/L 196-189 8565/12/03 potassium, serum 3.7 mmol/L 3.5-5.2 chloride, serum [...] 0.40 mg/dL 0.00-1.00 sodium, serum 138 mmol/L 521-419 1752/08/14 potassium, serum 4.0 mmol/L 3.5-5.2 chloride, serum [...] 11 .6-14.8 platelet count 193 10^3/MM^3 10*3/mm3 482-001 3694/12/03 leukocyte count, blood 8.2 10^3/MM^3 10*3/mm3 4.6-10.2 [...] 11 .6-14.8 platelet count 98 10^3/MM^3 10*3/mm3 256-443 7805/01/06 leukocyte count, blood 7.6 10^3/MM^3 10*3/mm3 4.6-10.2 [...] 11 .6-14.8 platelet count 132 10^3/MM^3 10*3/mm3 736-543 2570/01/03 leukocyte count, blood 8.1 10^3/MM^3 10*3/mm3 4.6-10.2 [...] 11 .6-14.8 platelet count 96 10^3/MM^3 10*3/mm3 028-230 9285/04/03 leukocyte count, blood 5.6 10^3/MM^3 10*3/mm3 4.6-10.2 [...] 11 .6-14.8 platelet count 246 10^3/MM^3 10*3/mm3 311-918 6818/02/18 leukocyte count, blood 4.0 10^3/MM^3 10*3/mm3 4.6-10.2 [...] 11 .6-14.8 platelet count 134 10^3/MM^3 10*3/mm3 908-237 0826/02/11 leukocyte count, blood 4.8 10^3/MM^3 10*3/mm3 4.6-10.2 [...] 11 .6-14.8 platelet count 102 10^3/MM^3 10*3/mm3 422-886 4442/02/04 leukocyte count, blood 3.6 10^3/MM^3 10*3/mm3 4.6-10.2 [...] 11 .6-14.8 platelet count 70 10^3/MM^3 10*3/mm3 562-728 8592/01/28 leukocyte count, blood 4.2 10^3/MM^3 10*3/mm3 4.6-10.2 [...] 11 .6-14.8 platelet count 73 10^3/MM^3 10*3/mm3 120-773 8551/01/21 leukocyte count, blood 4.9 10^3/MM^3 10*3/mm3 4.6-10.2 [...] Diff/Morphology - Chemistry sodium, serum 141 mmol/L 709-390 4972/01/14 potassium, serum 3.9 mmol/L 3.5-5.2 chloride, serum [...] 0.50 mg/dL 0.00-1.00 sodium, serum 140 mmol/L 355-745 0990/12/17 potassium, serum 3.3 mmol/L 3.5-5.2 chloride, serum [...] 0.40 mg/dL 0.00-1.00 sodium, serum 138 mmol/L 732-246 3354/12/24 potassium, serum 3.7 mmol/L 3.5-5.2 chloride, serum [...] 11 .6-14.8 platelet count 66 10^3/MM^3 10*3/mm3 470-097 4153/12/17 leukocyte count, blood 18.6 10^3/MM^3 10*3/mm3 4.6-10.2 [...] 11 .6-14.8 platelet count 75 10^3/MM^3 10*3/mm3 234-275 7219/01/14 leukocyte count, blood 6.2 10^3/MM^3 10*3/mm3 4.6-10.2 [...] - Chem istry sodium, serum 142 mmol/L 248-672 3949/12/10 potassium, serum 3.9 mmol/L 3.5-5.2 chloride, serum [...] Diff/Morphology - Chemistry sodium, serum 142 mmol/L 969-678 3530/12/31 potassium, serum 3.6 mmol/L 3.5-5.2 chloride, serum [...] Panel - Chemistry cholesterol, serum 209 mg/dL 962-959 9361/09/11 triglyceride, serum, fasting 113 mg/dL 30-200 HDL [...] 5.0-8.5 Encounters Code Encounter Date Provider Facility CPT-29382 Level 4 Est. Patient 19:08:42 EIGHT ARM OPERATOR Hope cohn MD PhD [facility] CPT-54539 Level 4 Est. Patient 20:04:51 CDT Hope cohn MD PhD [facility] CPT-51355 Level 3 New Patient 01:46:11 EIGHT ARM OPERATOR Hope landers MD PhD [facility] Procedures Code Procedure Name Date Entry Date Standard Desc ription CPT-G0008 Administration of Influenza Virus Vaccine 13:36:47 CDT CPT-48424 Fluzone High-Dose Intramuscular Suspension 11/15 13:36:47 CDT CPT-J0897 Prolia 60 mg 08:50:41 CDT CPT-89031 Abx/Therapy Injection 08:50:41 CDT CPT-13668 Bone Density 12:06:12 CDT CPT-67620 Bone Density 08:54:40 CDT CPT-OV Office Visit 15:37:02 CDT CPT-44025 Postop F/U Visit 15:47:49 CDT CPT-63716 Postop F/U Visit 15:21:02 CDT CPT-TCMH Transitional Care Mgmt-High 07:52:27 CDT 20 20/06/01 CPT-96872 Venipuncture Draw Fee 13:51:18 CDT CPT-21733 Venipuncture Draw Fee 10:14:55 EIGHT ARM OPERATOR CPT-60704 Venipuncture Draw Fee 13:39:45 EIGHT ARM OPERATOR CPT-OV Office Visit 15:11:22 EIGHT ARM OPERATOR CPT-10086 Venipuncture Draw Fee 09:20:49 EIGHT ARM OPERATOR CPT-25107 Venipuncture Draw Fee 16:52:15 EIGHT ARM OPERATOR CPT-80035 Venipuncture Draw Fee 10:37:24 EIGHT ARM OPERATOR CPT-49684 Venipuncture Draw Fee 08:21:21 EIGHT ARM OPERATOR CPT-65979 Venipuncture Draw Fee 08:30:20 EIGHT ARM OPERATOR CPT-38260 Venipuncture Draw Fee 14:53:21 EIGHT ARM OPERATOR CPT-66927 Venipuncture Draw Fee 09:40:56 EIGHT ARM OPERATOR CPT-77092 Venipuncture Draw Fee 10:30:47 EIGHT ARM OPERATOR CPT-80971 Venipuncture Draw Fee 10:46:17 EIGHT ARM OPERATOR CPT-31715 Venipuncture Draw Fee 11:12:45 EIGHT ARM OPERATOR CPT-25152 Venipuncture Draw Fee 09:53:33 EIGHT ARM OPERATOR CPT-15481 Venipuncture Draw Fee 11:53:51 EIGHT ARM OPERATOR CPT-23031 Venipuncture Draw Fee 10:33:50 EIGHT ARM OPERATOR CPT-81711 Venipuncture Draw Fee 10:05:01 EIGHT ARM OPERATOR CPT-01497 Venipuncture Draw Fee 14:32:52 EIGHT ARM OPERATOR CPT-70139 Venipuncture Draw Fee 09:46:13 EIGHT ARM OPERATOR CPT-74808 Venipuncture Draw Fee 11:34:27 EIGHT ARM OPERATOR CPT-06288 Venipuncture Draw Fee 13:17:16 EIGHT ARM OPERATOR CPT-93437 Venipuncture Draw Fee 12:05:39 CDT CPT-56444 Venipuncture Draw Fee 12:49:12 CDT CPT-49425 Venipuncture Draw Fee 12:37:18 CDT CPT-94523 Venipuncture Draw Fee 10:57:11 CDT CPT-47348 Venipuncture Draw Fee 13:47:40 CDT CPT-80569 Venipuncture Draw Fee 10:02:17 CDT CPT-39249 TB Tubersol 17:32:32 CDT CPT-OV Office Visit 16:21:53 CDT CPT-OV Office Visit 15:49:22 CDT CPT-OV Office Visit 17:16:31 CDT CPT-OV Office Visit 10:43:31 CDT
--- OUTSIDE RECORDS SUMMARY | 2019-02-09 13:27 | XMS REPORT | Clinical Summary ---
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 Dick aYtes MD ABDOMINAL PAIN, GENERALIZED ICD-789.07 Inactive Hope Benavidez MD PhD FEVER UNSPECIFIED ICD-780.60 Inactive Hope cohn MD PhD UNSPECIFIED VENOUS INSUFFICIENCY ICD-459.81 [place] [facility] Adam Yates MD ADENOCARCINOMA, ASCENDING COLON [...] shot every 6 months for osteoprosis DENOSUMAB 52672386464 Active Hope Benavidez MD PhD Active CALCIUM + D + K 750-500-40 MG-UNT-MCG TABS 1 tab by mouth tw ice daily CALCIUM-VITAMIN D-VITAMIN K 59408507901 Active Hope landers MD PhD Active DAILY VALUE MULTIVITAMIN TABS 1 tab by mouth twice daily MULTIPLE VITAMIN 82963011699 Active Hope Benavidez MD PhD Active FISH OIL 306 MG CAPS 1 tab by mouth three times daily OMEGA-3 FATTY ACIDS 01312105183 Active Hope Benavidez MD PhD Active LUTEIN 10 MG TABS 1 tab daily LUTEIN 38507940223 Act cash Hope Benavidez MD PhD Active FLORANEX PACK 1 pack three times daily, for bowel health LACTOBACILLUS 70062175996 Active Hope Benavidez MD PhD Active LOMOTIL 2.5-0.025 MG TABS 1 tab by mouth prn DIPHENOXYLATE-ATROPINE 69029777470 Active Hope Benavidez MD PhD Active TRIAMTERENE-HCTZ 37.5-25 MG TABS 1 tab by mouth daily TRIAMTERENE-HCTZ 85114320006 Active Hope Benavidez MD PhD Acti ve IRON 325 (65 FE) MG TABS 1 tab daily FERROUS SULF ATE 80866287948 Active Hope Benavidez MD PhD Active MAGNESIUM GLUCONATE 250 MG TABS 1 tab tid MAGN ESIUM GLUCONATE 83025628499 Active Adam Yates MD Active ATENOLOL 50 MG TABS 1/2 tab q other day m-w-f ATE NOLOL 71671682203 Active Adam Yates MD Active PROPRANOLOL HCL 80 MG TABS 1 tab tue. and thur. PROPRANOLOL HCL 01353148608 Active Adam Yates MD Active CYCLOBENZAPRINE HCL 10 MG TABS 1 tablet by mouth three times daily as needed for headaches CYCLOBENZAPRINE HCL 19015777519 No Longe r Active Adam Yates MD Active OMEPRAZOLE 20 MG CPDR 1 tablet by mouth daily for GERD OMEPRAZOLE 76464188657 No Longer Active Adam Yates MD A ctive ZOFRAN 8 MG TABS 1 tab by mouth every 12 hours prn 201 05/16/09 ONDANSETRON HCL 29768274185 No Longer Active Adam Yates MD Active PHENADOZ 25 MG SUPP 1 every 4 hrs. PRN PROMETHA ZINE HCL 86182301586 No Longer Active Adam Yates MD Active POTASSIUM CHLORIDE 20 MEQ PACK by mouth twice a day prn POTASSIUM CHLORIDE 90626824123 No Longer Active Adam Yates MD Active PROMETHAZINE HCL 25 MG TABS 1 Q. 4 hr. PRN PROM ETHAZINE HCL 22842928467 No Longer Active Adam Yates MD Active INNOPRAN XL 120 MG [id number] Take one by mouth daily 2 PROPRANOLOL HCL SR BEADS 05174672940 No Longer Active Adam Yates MD A ctive FLAGYL 500 MG TABS 1 pill by mouth three times daily, for diarrh ea METRONIDAZOLE 04980711812 No Longer Active Hope Benavidez MD PhD Active DYAZIDE 37.5-25 MG CAPS 1 qd TRIAMTERENE-HC TZ 48352726949 No Longer Active Hope Benavidez MD PhD Active PROZAC 20 MG CAPS 1 q d FLUOXETINE HCL 24922 939104 No Longer Active Hope Benavidez MD PhD Active SIMVASTATIN 40 MG TABS 1 qd SIMVASTATIN 004 57067908 No Longer Active Adam Yates MD Active MELOXICAM 15 MG TABS 1 qd MELOXICAM 2606926 5880 No Longer Active Adam Yates MD Active IMODIUM A-D 2 MG TABS 2 onset at diarrhea and prn. LOPERAMIDE HCL 87072366192 Active Hope Benavidez MD PhD Active EXCEDRIN EXTRA STRENGTH 250-250-65 MG TABS 1-2 q6h PRN headache 201 04/16/21 [id number] 73305888867 Active Hope Benavidez MD PhD Active FLAGYL 500 MG TABS 1 qid METRONIDAZOLE 57613 246704 No Longer Active Adam Yates MD Active LEVAQUIN 750 MG TABS 1 qd LEVOFLOXACIN 5486 9915273 No Longer Active Adam Yates MD Active ADULT ASPIRIN LOW STRENGTH 81 MG TBDP 1 qd A SPIRIN 06689738043 Active Hope Benavidez MD PhD Active LEVAQUIN 750 MG TABS 1 qd LEVAQUIN 750 MG T ABS 655275 LEVOFLOXACIN Inactive FLAGYL 500 MG TABS 1 qid FLAGYL 500 MG TABS 589248 METRONIDAZOLE Inactive MELOXICAM 15 MG TABS 1 qd MELOXICAM 15 MG T ABS 700658 MELOXICAM Inactive SIMVASTATIN 40 MG TABS 1 qd SIMVASTATIN 40 MG TABS 699790 SIMVASTATIN Inactive PROZAC 20 MG CAPS 1 q d PROZAC 20 MG CAPS 31 0385 FLUOXETINE HCL Inactive DYAZIDE 37.5-25 MG CAPS 1 qd DYAZIDE 37.5 -25 MG CAPS 825659 TRIAMTERENE-HCTZ Inactive INNOPRAN XL 120 MG [id number] Take one by mouth daily 2 INNOPRAN XL 120 MG [id number] PROPRANOLOL HCL SR BEADS Inactive PROMETHAZINE HCL 25 MG TABS 1 Q. 4 hr. PRN PROMETHAZINE HCL 25 MG TABS 211657 PROMETHAZINE HCL Inactive POTASSIUM CHLORIDE 20 MEQ PACK by mouth twice a day prn POTASSIUM CHLORIDE 20 MEQ PACK 859170 POTASSIUM CHLORIDE Inactive PHENADOZ 25 MG SUPP 1 every 4 hrs. PRN PHENADOZ 2 5 MG SUPP 224973 PROMETHAZINE HCL Inactive ZOFRAN 8 MG TABS 1 tab by mouth every 12 hours prn 201 05/16/09 ZOFRAN 8 MG TABS 547479 ONDANSETRON HCL Inactive OMEPRAZOLE 20 MG CPDR 1 tablet by mouth daily for GERD OMEPRAZOLE 20 MG CPDR 006699 OMEPRAZOLE Inactive CYCLOBENZAPRINE HCL 10 MG TABS 1 tablet by mouth three times daily as needed for headaches CYCLOBENZAPRINE HCL 10 MG TABS 314957 CYCLOBENZAPRINE HCL Inactive FLAGYL 500 MG TABS 1 pill by mouth three times daily, for diarrh ea FLAGYL 500 MG TABS 603781 METRONIDAZOLE Inactive Advance Directives Directive Description Start [...] - Chem istry sodium, serum 137 mmol/L 506-489 8420/11/01 potassium, serum 3.7 mmol/L 3.5-5.2 chloride, serum 100 mmol/L 98-107 carbon dioxide, venous blood 31.8 mmol/L 21.0-32 .0 blood glucose 98 mg/dL 65-110 calcium, serum 8.6 mg/dL 8.5-10.1 urea nitrogen, blood 23 mg/dL 7-18 creatinine, serum 1.50 mg/dL 0.60-1.30 sodium, serum 136 mmol/L 109-120 1563/05/02 potassium, serum 4.1 mmol/L 3.5-5.2 chloride, serum [...] 11 .6-14.8 platelet count 133 10^3/MM^3 10*3/mm3 396-482 9723/01/17 leukocyte count, blood 3.1 10^3/MM^3 10*3/mm3 4.6-10.2 [...] 11 .6-14.8 platelet count 22 10^3/MM^3 10*3/mm3 902-248 6590/11/19 leukocyte count, blood 10.4 10^3/MM^3 10*3/mm3 4.6-10.2 [...] Verified By Repeat Analysis 10^3/mm ^3 10*3/mm3 042-948 4918/12/10 leukocyte count, blood 7.8 10^3/MM^3 10*3/mm3 4.6-10.2 [...] Panel - Chemistry sodium, serum 139 mmol/L 555-514 7803/12/03 potassium, serum 3.7 mmol/L 3.5-5.2 chloride, serum [...] 0.40 mg/dL 0.00-1.00 sodium, serum 142 mmol/L 377-339 9547/01/03 potassium, serum 3.4 mmol/L 3.5-5.2 chloride, serum [...] 0.50 mg/dL 0.00-1.00 sodium, serum 140 mmol/L 860-913 7222/01/06 potassium, serum 3.4 mmol/L 3.5-5.2 chloride, serum [...] 0.40 mg/dL 0.00-1.00 sodium, serum 136 mmol/L 454-738 0270/10/08 potassium, serum 3.1 mmol/L 3.5-5.2 chloride, serum [...] 0.60 mg/dL 0.00-1.00 sodium, serum 139 mmol/L 690-099 4620/10/17 potassium, serum 3.1 mmol/L 3.5-5.2 chloride, serum [...] 0.30 mg/dL 0.00-1.00 sodium, serum 139 mmol/L 793-982 8744/01/21 potassium, serum 3.4 mmol/L 3.5-5.2 chloride, serum [...] 0.40 mg/dL 0.00-1.00 sodium, serum 138 mmol/L 385-459 5479/01/28 potassium, serum 3.2 mmol/L 3.5-5.2 chloride, serum [...] 0.40 mg/dL 0.00-1.00 sodium, serum 140 mmol/L 296-760 6810/02/04 potassium, serum 3.6 mmol/L 3.5-5.2 chloride, serum [...] 0.70 mg/dL 0.00-1.00 sodium, serum 136 mmol/L 521-292 1311/02/11 potassium, serum 3.1 mmol/L 3.5-5.2 chloride, serum [...] 0.50 mg/dL 0.00-1.00 sodium, serum 139 mmol/L 261-266 4219/02/18 potassium, serum 3.6 mmol/L 3.5-5.2 chloride, serum [...] 0.50 mg/dL 0.00-1.00 sodium, serum 138 mmol/L 054-062 8861/08/14 potassium, serum 4.0 mmol/L 3.5-5.2 chloride, serum [...] 0.40 mg/dL 0.00-1.00 sodium, serum 136 mmol/L 514-572 0584/04/03 potassium, serum 3.7 mmol/L 3.5-5.2 chloride, [...] 11 .6-14.8 platelet count 193 10^3/MM^3 10*3/mm3 853-241 2711/04/03 leukocyte count, blood 5.6 10^3/MM^3 10*3/mm3 4.6-10.2 [...] 11 .6-14.8 platelet count 246 10^3/MM^3 10*3/mm3 972-262 7583/02/18 leukocyte count, blood 4.0 10^3/MM^3 10*3/mm3 4.6-10.2 [...] 11 .6-14.8 platelet count 134 10^3/MM^3 10*3/mm3 608-503 0667/02/11 leukocyte count, blood 4.8 10^3/MM^3 10*3/mm3 4.6-10.2 [...] 11 .6-14.8 platelet count 102 10^3/MM^3 10*3/mm3 848-993 1295/02/04 leukocyte count, blood 3.6 10^3/MM^3 10*3/mm3 4.6-10.2 [...] 11 .6-14.8 platelet count 70 10^3/MM^3 10*3/mm3 817-343 7726/01/28 leukocyte count, blood 4.2 10^3/MM^3 10*3/mm3 4.6-10.2 [...] 11 .6-14.8 platelet count 73 10^3/MM^3 10*3/mm3 714-784 7180/01/21 leukocyte count, blood 4.9 10^3/MM^3 10*3/mm3 4.6-10.2 [...] .6-14.8 platelet count 38 recounted 10^3/mm^3 10*3/mm3 213-229 1304/10/08 leukocyte count, blood 2.9 10^3/MM^3 10*3/mm3 4.6-10.2 [...] 11 .6-14.8 platelet count 229 10^3/MM^3 10*3/mm3 273-609 3878/10/17 leukocyte count, blood 12.0 10^3/MM^3 10*3/mm3 4.6-10.2 [...] 11 .6-14.8 platelet count 232 10^3/MM^3 10*3/mm3 078-350 3430/01/03 leukocyte count, blood 8.1 10^3/MM^3 10*3/mm3 4.6-10.2 [...] 11 .6-14.8 platelet count 96 10^3/MM^3 10*3/mm3 505-336 7970/01/06 leukocyte count, blood 7.6 10^3/MM^3 10*3/mm3 4.6-10.2 [...] 11 .6-14.8 platelet count 132 10^3/MM^3 10*3/mm3 316-456 8999/12/03 leukocyte count, blood 8.2 10^3/MM^3 10*3/mm3 4.6-10.2 [...] Diff/Morphology - Chemistry sodium, serum 141 mmol/L 773-074 6586/11/25 potassium, serum 3.9 mmol/L 3.5-5.2 chloride, serum [...] 0.50 mg/dL 0.00-1.00 sodium, serum 140 mmol/L 598-870 6794/12/17 potassium, serum 3.3 mmol/L 3.5-5.2 chloride, serum [...] 0.40 mg/dL 0.00-1.00 sodium, serum 138 mmol/L 063-515 8528/12/24 potassium, serum 3.7 mmol/L 3.5-5.2 chloride, serum [...] 0.50 mg/dL 0.00-1.00 sodium, serum 135 mmol/L 164-712 0158/10/22 potassium, serum 3.0 mmol/L 3.5-5.2 chloride, serum [...] 0.50 mg/dL 0.00-1.00 sodium, serum 128 mmol/L 253-663 3686/10/29 potassium, serum 2.6 mmol/L 3.5-5.2 chloride, serum [...] 0.50 mg/dL 0.00-1.00 sodium, serum 137 mmol/L 985-668 7671/11/12 potassium, serum 3.2 mmol/L 3.5-5.2 chloride, serum [...] 0.40 mg/dL 0.00-1.00 sodium, serum 138 mmol/L 754-546 6694/11/05 potassium, serum 3.9 mmol/L 3.5-5.2 chloride, serum [...] 0.40 mg/dL 0.00-1.00 sodium, serum 141 mmol/L 295-235 6702/01/14 potassium, serum 3.9 mmol/L 3.5-5.2 chloride, serum [...] 11 .6-14.8 platelet count 22 10^3/MM^3 10*3/mm3 638-400 3733/11/12 leukocyte count, blood 12.1 10^3/MM^3 10*3/mm3 4.6-10.2 [...] 11 .6-14.8 platelet count 157 10^3/MM^3 10*3/mm3 921-973 7001/11/05 leukocyte count, blood 16.4 10^3/MM^3 10*3/mm3 4.6-10.2 [...] 11 .6-14.8 platelet count 215 10^3/MM^3 10*3/mm3 588-660 7400/11/25 leukocyte count, blood 21.1 10^3/MM^3 10*3/mm3 4.6-10.2 [...] 11 .6-14.8 platelet count 46 10^3/MM^3 10*3/mm3 740-834 1011/10/22 leukocyte count, blood 14.7 10^3/MM^3 10*3/mm3 4.6-10.2 [...] 11 .6-14.8 platelet count 428 10^3/MM^3 10*3/mm3 689-864 5912/10/29 leukocyte count, blood 26.3 10^3/MM^3 10*3/mm3 4.6-10.2 [...] 11 .6-14.8 platelet count 268 10^3/MM^3 10*3/mm3 436-861 3688/12/24 leukocyte count, blood 14.0 10^3/MM^3 10*3/mm3 4.6-10.2 [...] 11 .6-14.8 platelet count 66 10^3/MM^3 10*3/mm3 938-366 8860/12/17 leukocyte count, blood 18.6 10^3/MM^3 10*3/mm3 4.6-10.2 [...] - Chem istry sodium, serum 141 mmol/L 200-131 5729/11/19 potassium, serum 3.9 mmol/L 3.5-5.2 chloride, serum [...] 0.50 mg/dL 0.00-1.00 sodium, serum 142 mmol/L 816-072 7377/12/10 potassium, serum 3.9 mmol/L 3.5-5.2 chloride, serum [...] Diff/Morphology - Chemistry sodium, serum 142 mmol/L 244-208 9534/12/31 potassium, serum 3.6 mmol/L 3.5-5.2 chloride, serum [...] Panel - Chemistry cholesterol, serum 209 mg/dL 223-076 8034/09/11 triglyceride, serum, fasting 113 mg/dL 30-200 HDL cholesterol, serum 50 mg/dL 32-96 LDL cholesterol, serum 136 mg/dL 0-130 Encounters Code Encounter Date Provider Facility CPT-68544 Level 4 Est. Patient 20:04:51 CDT Hope cohn MD PhD [facility] CPT-50850 Level 3 New Patient 01:46:11 [facility] Hope landers MD PhD [facility] Procedures Code Procedure Name Date Entry Date Standard Desc ription CPT-J0897 Prolia 60 mg 08:50:41 CDT CPT-33990 Abx/Therapy Injection 08:50:41 CDT CPT-23682 Bone Density 12:06:12 CDT CPT-77115 Bone Density 08:54:40 CDT CPT-OV Office Visit 15:37:02 CDT CPT-85028 Postop F/U Visit 15:47:49 CDT CPT-26126 Postop F/U Visit 15:21:02 CDT CPT-FORMERLY [facility] Transitional Care Mgmt-High 07:52:27 CDT 20 20/06/01 CPT-71610 Venipuncture Draw Fee 13:51:18 CDT CPT-12272 Venipuncture Draw Fee 10:14:55 [facility] CPT-00697 Venipuncture Draw Fee 13:39:45 [facility] CPT-OV Office Visit 15:11:22 [facility] CPT-19936 Venipuncture Draw Fee 09:20:49 [facility] CPT-56688 Venipuncture Draw Fee 16:52:15 [facility] CPT-68291 Venipuncture Draw Fee 10:37:24 [facility] CPT-98160 Venipuncture Draw Fee 08:21:21 [facility] CPT-16483 Venipuncture Draw Fee 08:30:20 [facility] CPT-98699 Venipuncture Draw Fee 14:53:21 [facility] CPT-66642 Venipuncture Draw Fee 09:40:56 [facility] CPT-19888 Venipuncture Draw Fee 10:30:47 [facility] CPT-70107 Venipuncture Draw Fee 10:46:17 [facility] CPT-24893 Venipuncture Draw Fee 11:12:45 [facility] CPT-78427 Venipuncture Draw Fee 09:53:33 [facility] CPT-49577 Venipuncture Draw Fee 11:53:51 [facility] CPT-87319 Venipuncture Draw Fee 10:33:50 [facility] CPT-91473 Venipuncture Draw Fee 10:05:01 [facility] CPT-80907 Venipuncture Draw Fee 14:32:52 [facility] CPT-26480 Venipuncture Draw Fee 09:46:13 [facility] CPT-69956 Venipuncture Draw Fee 11:34:27 [facility] CPT-80305 Venipuncture Draw Fee 13:17:16 [facility] CPT-55500 Venipuncture Draw Fee 12:05:39 CDT CPT-62508 Venipuncture Draw Fee 12:49:12 CDT CPT-57454 Venipuncture Draw Fee 12:37:18 CDT CPT-26500 Venipuncture Draw Fee 10:57:11 CDT CPT-84645 Venipuncture Draw Fee 13:47:40 CDT CPT-16472 Venipuncture Draw Fee 10:02:17 CDT CPT-40711 TB Tubersol 17:32:32 CDT CPT-OV Office Visit 16:21:53 CDT CPT-OV Office Visit 15:49:22 CDT CPT-OV Office Visit 17:16:31 CDT CPT-OV Office Visit 10:43:31 CDT
--- OUTSIDE RECORDS SUMMARY | 2019-02-09 13:28 | XMS REPORT | Clinical Summary ---
Author Author Renaldo, Florecita Munoz Organization [facility] Address Unknown Phone Unavailable Allergies, Adverse Reactions, [...] stroke (cerebrovascular) Colon cancer 153.9 Active Zoila CRISTINA,R MA Malignant neoplasm of colon, unspecified [...] mouth every 12 hours prn ONDANSETRON HCL 19920971594 Active Laura Elder Active FLAGYL 500 MG TABS 1 pill by mouth three times daily, for diarrh ea METRONIDAZOLE 14384672735 No Longer Active Hope Benavidez MD PhD Active MAGNESIUM GLUCONATE 250 MG TABS 1 tab daily MAG NESIUM GLUCONATE 27425145795 Active Hope Benavidez MD PhD Active DYAZIDE 37.5-25 MG CAPS 1 qd TRIAMTERENE-HC TZ 19389254119 No Longer Active Hope Benavidez MD PhD Active PROZAC 20 MG CAPS 1 q d FLUOXETINE HCL 31621 739903 No Longer Active Hope Benavidez MD PhD Active INNOPRAN XL 120 MG [id number] Take one by mouth daily PROPRANOLOL HCL SR BEADS 17455677952 Active Hope Benavidez MD PhD Active POTASSIUM CHLORIDE 20 MEQ PACK by mouth twice a day prn POTASSIUM CHLORIDE 55864953531 Active Adam Yates MD Activ e CYCLOBENZAPRINE HCL 10 MG TABS 1 tablet by mouth three times daily as needed for headaches CYCLOBENZAPRINE HCL 65746109466 Active Selena Yates MD Active SIMVASTATIN 40 MG TABS 1 qd SIMVASTATIN 004 07939712 No Longer Active Adam Yates MD Active MELOXICAM 15 MG TABS 1 qd MELOXICAM 7144435 7400 No Longer Active Adam Yates MD Active ATENOLOL 50 MG TABS 1/2 tab q other day ATENOLOL 32775365426 Active Hope Benavidez MD PhD Active OMEPRAZOLE 20 MG CPDR 1 tablet by mouth daily for GERD OMEPRAZOLE 34719043310 Active Hope Benavidez MD PhD Active IMODIUM A-D 2 MG TABS 2 onset at diarrhea and prn. LOPERAMIDE HCL 02823226662 Active Hope Benavidez MD PhD Active PHENADOZ 25 MG SUPP 1 every 4 hrs. PRN PROMETHAZINE HCL 97255433094 Active Hope Benavidez MD PhD Active PROMETHAZINE HCL 25 MG TABS 1 Q. 4 hr. PRN PROMETH AZINE HCL 45529169129 Active Hope Benavidez MD PhD Active EXCEDRIN EXTRA STRENGTH 250-250-65 MG TABS 1-2 q6h PRN headache 201 04/16/21 [id number] 50608887732 Active Hope Benavidez MD PhD Active FLAGYL 500 MG TABS 1 qid METRONIDAZOLE 39311 812613 No Longer Active Adam Yates MD Active LEVAQUIN 750 MG TABS 1 qd LEVOFLOXACIN 5486 8299903 No Longer Active Adam Yates MD Active ADULT ASPIRIN LOW STRENGTH 81 MG TBDP 1 qd A SPIRIN 46394245359 Active Hope Benavidez MD PhD Active LEVAQUIN 750 MG TABS 1 qd LEVAQUIN 750 MG T ABS 839314 LEVOFLOXACIN Inactive FLAGYL 500 MG TABS 1 qid FLAGYL 500 MG TABS 450732 METRONIDAZOLE Inactive MELOXICAM 15 MG TABS 1 qd MELOXICAM 15 MG T ABS 984888 MELOXICAM Inactive SIMVASTATIN 40 MG TABS 1 qd SIMVASTATIN 40 MG TABS 679168 SIMVASTATIN Inactive PROZAC 20 MG CAPS 1 q d PROZAC 20 MG CAPS 31 0385 FLUOXETINE HCL Inactive DYAZIDE 37.5-25 MG CAPS 1 qd DYAZIDE 37.5 -25 MG CAPS 896750 TRIAMTERENE-HCTZ Inactive FLAGYL 500 MG TABS 1 pill by mouth three times daily, for diarrh ea FLAGYL 500 MG TABS 846758 METRONIDAZOLE Inactive Advance Directives Directive Description Start [...] - Chem istry sodium, serum 137 mmol/L 789-482 2084/11/01 potassium, serum 3.7 mmol/L 3.5-5.2 chloride, serum 100 mmol/L 98-107 carbon dioxide, venous blood 31.8 mmol/L 21.0-32 .0 blood glucose 98 mg/dL 65-110 calcium, serum 8.6 mg/dL 8.5-10.1 urea nitrogen, blood 23 mg/dL 7-18 creatinine, serum 1.50 mg/dL 0.60-1.30 sodium, serum 136 mmol/L 775-753 4489/05/02 potassium, serum 4.1 mmol/L 3.5-5.2 chloride, serum 99 mmol/L 98-107 carbon dioxide, venous blood 30.7 mmol/L 21.0-32 .0 blood glucose 79 mg/dL 65-110 calcium, serum 8.7 mg/dL 8.5-10.1 urea nitrogen, blood 11 mg/dL 7-18 creatinine, serum 1.10 mg/dL 0.60-1.30 Lab Report: [facility] - Chemistry sodium, serum 141 mmol/L potassium, [...] 11 .6-14.8 platelet count 133 10^3/MM^3 10*3/mm3 584-002 8833/01/17 leukocyte count, blood 3.1 10^3/MM^3 10*3/mm3 4.6-10.2 [...] 11 .6-14.8 platelet count 22 10^3/MM^3 10*3/mm3 473-241 4226/11/19 leukocyte count, blood 10.4 10^3/MM^3 10*3/mm3 4.6-10.2 [...] Verified By Repeat Analysis 10^3/mm ^3 10*3/mm3 653-799 2129/12/10 leukocyte count, blood 7.8 10^3/MM^3 10*3/mm3 4.6-10.2 [...] Panel - Chemistry sodium, serum 139 mmol/L 195-128 1555/12/03 potassium, serum 3.7 mmol/L 3.5-5.2 chloride, serum [...] 0.40 mg/dL 0.00-1.00 sodium, serum 142 mmol/L 154-348 5496/01/03 potassium, serum 3.4 mmol/L 3.5-5.2 chloride, serum [...] 0.50 mg/dL 0.00-1.00 sodium, serum 137 mmol/L 003-964 7011/10/01 potassium, serum 3.5 mmol/L 3.5-5.2 chloride, serum [...] 0.60 mg/dL 0.00-1.00 sodium, serum 139 mmol/L 617-350 9326/10/17 potassium, serum 3.1 mmol/L 3.5-5.2 chloride, serum [...] 0.30 mg/dL 0.00-1.00 sodium, serum 140 mmol/L 553-309 3987/01/06 potassium, serum 3.4 mmol/L 3.5-5.2 chloride, serum [...] 0.40 mg/dL 0.00-1.00 sodium, serum 139 mmol/L 078-596 7663/01/21 potassium, serum 3.4 mmol/L 3.5-5.2 chloride, serum [...] 0.40 mg/dL 0.00-1.00 sodium, serum 138 mmol/L 368-590 5527/01/28 potassium, serum 3.2 mmol/L 3.5-5.2 chloride, serum [...] 0.40 mg/dL 0.00-1.00 sodium, serum 140 mmol/L 966-491 0941/02/04 potassium, serum 3.6 mmol/L 3.5-5.2 chloride, serum [...] 0.70 mg/dL 0.00-1.00 sodium, serum 136 mmol/L 461-919 8346/02/11 potassium, serum 3.1 mmol/L 3.5-5.2 chloride, serum [...] 0.50 mg/dL 0.00-1.00 sodium, serum 136 mmol/L 910-253 6045/04/03 sodium, serum 136 mmol/L 469-526 7420/04/03 potassium, serum 3.7 mmol/L 3.5-5.2 chloride, serum [...] 0.40 mg/dL 0.00-1.00 sodium, serum 139 mmol/L 358-780 0904/02/18 potassium, serum 3.6 mmol/L 3.5-5.2 chloride, serum 98 mmol/L 98-107 carbon dioxide, venous blood 33.2 mmol/L 21.0-32 .0 blood glucose 93 mg/dL 65-110 urea nitrogen, blood 13 mg/dL 7- creatinine, serum 1.00 mg/dL 0.60-1.30 alanine aminotransferase (SGPT), serum 12 U/L -78 aspartate aminotransferase (SGOT), serum 16 U/L 15-37 alkaline phosphatase, serum 97 U/L 50-136 calcium, serum 8.6 mg/dL 8.5-10.1 bilirubin, serum, total 0.50 mg/dL 0.00-1.00 sodium, serum 138 mmol/L 596-616 9832/08/14 potassium, serum 4.0 mmol/L 3.5-5.2 chloride, serum [...] 11 .6-14.8 platelet count 193 10^3/MM^3 10*3/mm3 549-502 7962/04/03 leukocyte count, blood 5.6 10^3/MM^3 10*3/mm3 4.6-10.2 [...] 11 .6-14.8 platelet count 246 10^3/MM^3 10*3/mm3 594-262 9989/10/01 erythrocyte (RBC) count 3.96 10^6/MM^3 10*6/mm3 4.04-5.4 8 lymphocytes as percent of blood leukocytes 14.1 % 20.5-51.1 monocytes as percent of blood leukocytes 6.1 % 1.7-9.3 neutrophils as percent of blood leukocytes 76.0 % 42.2-75.2 leukocyte count, blood 8.3 10^3/MM^3 10*3/mm3 4.6-10.2 leukocyte count, blood 4.0 [...] 11 .6-14.8 platelet count 134 10^3/MM^3 10*3/mm3 007-177 4893/02/11 leukocyte count, blood 4.8 10^3/MM^3 10*3/mm3 4.6-10.2 [...] 11 .6-14.8 platelet count 102 10^3/MM^3 10*3/mm3 909-376 4912/02/04 leukocyte count, blood 3.6 10^3/MM^3 10*3/mm3 4.6-10.2 [...] 11 .6-14.8 platelet count 70 10^3/MM^3 10*3/mm3 337-501 9474/01/28 leukocyte count, blood 4.2 10^3/MM^3 10*3/mm3 4.6-10.2 [...] 11 .6-14.8 platelet count 73 10^3/MM^3 10*3/mm3 737-257 5388/01/03 leukocyte count, blood 8.1 10^3/MM^3 10*3/mm3 4.6-10.2 [...] 11 .6-14.8 platelet count 96 10^3/MM^3 10*3/mm3 982-339 3183/01/21 leukocyte count, blood 4.9 10^3/MM^3 10*3/mm3 4.6-10.2 [...] .6-14.8 platelet count 38 recounted 10^3/mm^3 10*3/mm3 696-310 0019/10/08 leukocyte count, blood 2.9 10^3/MM^3 10*3/mm3 4.6-10.2 [...] 11 .6-14.8 platelet count 229 10^3/MM^3 10*3/mm3 357-864 6807/10/17 leukocyte count, blood 12.0 10^3/MM^3 10*3/mm3 4.6-10.2 [...] 11 .6-14.8 platelet count 232 10^3/MM^3 10*3/mm3 157-930 9161/10/01 hemoglobin, blood 11.2 g/dL 12.0-16.0 hematocrit, blood 34.4 % 36.0-46.0 mean corpuscular volume, RBC 87 fL 80-97 mean corpuscular hemoglobin, RBC 28.3 pg 27. 0-31.2 mean corpuscular hemoglobin concentration, RBC 32.6 G/DL % 31.8-35.4 red blood cell distribution width 18.2 % 11 .6-14.8 platelet count 378 10^3/MM^3 10*3/mm3 869-212 8249/01/06 leukocyte count, blood 7.6 10^3/MM^3 10*3/mm3 4.6-10.2 [...] 11 .6-14.8 platelet count 132 10^3/MM^3 10*3/mm3 932-922 5180/12/03 leukocyte count, blood 8.2 10^3/MM^3 10*3/mm3 4.6-10.2 [...] Diff/Morphology - Chemistry sodium, serum 141 mmol/L 760-795 2745/11/25 potassium, serum 3.9 mmol/L 3.5-5.2 chloride, serum [...] 0.50 mg/dL 0.00-1.00 sodium, serum 137 mmol/L 495-977 4480/11/12 potassium, serum 3.2 mmol/L 3.5-5.2 chloride, serum [...] 0.40 mg/dL 0.00-1.00 sodium, serum 140 mmol/L 431-628 4484/12/17 potassium, serum 3.3 mmol/L 3.5-5.2 chloride, serum [...] 0.40 mg/dL 0.00-1.00 sodium, serum 138 mmol/L 799-863 6763/12/24 potassium, serum 3.7 mmol/L 3.5-5.2 chloride, serum [...] 0.50 mg/dL 0.00-1.00 sodium, serum 135 mmol/L 956-885 0452/10/22 potassium, serum 3.0 mmol/L 3.5-5.2 chloride, serum [...] 0.50 mg/dL 0.00-1.00 sodium, serum 138 mmol/L 244-632 6662/11/05 potassium, serum 3.9 mmol/L 3.5-5.2 chloride, serum [...] 0.40 mg/dL 0.00-1.00 sodium, serum 128 mmol/L 185-276 1978/10/29 potassium, serum 2.6 mmol/L 3.5-5.2 chloride, serum [...] 0.50 mg/dL 0.00-1.00 sodium, serum 141 mmol/L 157-371 1293/01/14 potassium, serum 3.9 mmol/L 3.5-5.2 chloride, serum [...] 11 .6-14.8 platelet count 22 10^3/MM^3 10*3/mm3 476-816 1433/10/22 leukocyte count, blood 14.7 10^3/MM^3 10*3/mm3 4.6-10.2 [...] 11 .6-14.8 platelet count 428 10^3/MM^3 10*3/mm3 572-998 9733/11/05 leukocyte count, blood 16.4 10^3/MM^3 10*3/mm3 4.6-10.2 [...] 11 .6-14.8 platelet count 215 10^3/MM^3 10*3/mm3 443-880 0454/11/12 leukocyte count, blood 12.1 10^3/MM^3 10*3/mm3 4.6-10.2 [...] 11 .6-14.8 platelet count 157 10^3/MM^3 10*3/mm3 218-649 4839/10/29 leukocyte count, blood 26.3 10^3/MM^3 10*3/mm3 4.6-10.2 [...] 11 .6-14.8 platelet count 268 10^3/MM^3 10*3/mm3 926-489 2158/12/24 leukocyte count, blood 14.0 10^3/MM^3 10*3/mm3 4.6-10.2 [...] 11 .6-14.8 platelet count 66 10^3/MM^3 10*3/mm3 730-907 7027/11/25 leukocyte count, blood 21.1 10^3/MM^3 10*3/mm3 4.6-10.2 [...] 11 .6-14.8 platelet count 46 10^3/MM^3 10*3/mm3 983-747 6120/12/17 leukocyte count, blood 18.6 10^3/MM^3 10*3/mm3 4.6-10.2 [...] - Chem istry sodium, serum 141 mmol/L 011-103 3493/11/19 potassium, serum 3.9 mmol/L 3.5-5.2 chloride, serum [...] 0.50 mg/dL 0.00-1.00 sodium, serum 142 mmol/L 560-326 0598/12/10 potassium, serum 3.9 mmol/L 3.5-5.2 chloride, serum [...] Diff/Morphology - Chemistry sodium, serum 142 mmol/L 034-455 2284/12/31 potassium, serum 3.6 mmol/L 3.5-5.2 chloride, serum [...] 12.0-16.0 Encounters Code Encounter Date Provider Facility CPT-38894 Level 3 New Patient 01:46:11 LABORATORY ASSISTANT Hope landers MD PhD [facility] Procedures Code Procedure Name Date Entry Date Standard Desc ription CPT-08464 Postop F/U Visit 15:47:49 CDT CPT-67024 Postop F/U Visit 15:21:02 CDT CPT-TCM Transitional Care Mgmt-High 07:52:27 CDT 20 20/06/01 CPT-25523 Venipuncture Draw Fee 13:51:18 CDT CPT-83000 Venipuncture Draw Fee 10:14:55 LABORATORY ASSISTANT CPT-08519 Venipuncture Draw Fee 13:39:45 LABORATORY ASSISTANT CPT-OV Office Visit 15:11:22 LABORATORY ASSISTANT CPT-07155 Venipuncture Draw Fee 09:20:49 LABORATORY ASSISTANT CPT-84591 Venipuncture Draw Fee 16:52:15 LABORATORY ASSISTANT CPT-14664 Venipuncture Draw Fee 10:37:24 LABORATORY ASSISTANT CPT-29593 Venipuncture Draw Fee 08:21:21 LABORATORY ASSISTANT CPT-57422 Venipuncture Draw Fee 08:30:20 LABORATORY ASSISTANT CPT-37215 Venipuncture Draw Fee 14:53:21 LABORATORY ASSISTANT CPT-93220 Venipuncture Draw Fee 09:40:56 LABORATORY ASSISTANT CPT-41351 Venipuncture Draw Fee 10:30:47 LABORATORY ASSISTANT CPT-63942 Venipuncture Draw Fee 10:46:17 LABORATORY ASSISTANT CPT-26985 Venipuncture Draw Fee 11:12:45 LABORATORY ASSISTANT CPT-04618 Venipuncture Draw Fee 09:53:33 LABORATORY ASSISTANT CPT-85451 Venipuncture Draw Fee 11:53:51 LABORATORY ASSISTANT CPT-88983 Venipuncture Draw Fee 10:33:50 LABORATORY ASSISTANT CPT-61234 Venipuncture Draw Fee 10:05:01 LABORATORY ASSISTANT CPT-62471 Venipuncture Draw Fee 14:32:52 LABORATORY ASSISTANT CPT-06161 Venipuncture Draw Fee 09:46:13 LABORATORY ASSISTANT CPT-86566 Venipuncture Draw Fee 11:34:27 LABORATORY ASSISTANT CPT-16682 Venipuncture Draw Fee 13:17:16 LABORATORY ASSISTANT CPT-85114 Venipuncture Draw Fee 12:05:39 CDT CPT-16822 Venipuncture Draw Fee 12:49:12 CDT CPT-08935 Venipuncture Draw Fee 12:37:18 CDT CPT-42809 Venipuncture Draw Fee 10:57:11 CDT CPT-87813 Venipuncture Draw Fee 13:47:40 CDT CPT-79341 Venipuncture Draw Fee 10:02:17 CDT CPT-68531 TB Tubersol 17:32:32 CDT CPT-OV Office Visit 16:21:53 CDT CPT-OV Office Visit 15:49:22 CDT CPT-OV Office Visit 17:16:31 CDT CPT-OV Office Visit 10:43:31 CDT
--- OUTSIDE RECORDS SUMMARY | 2019-02-09 13:29 | XMS REPORT | Clinical Summary ---
[...] cohn MD PhD UNSPECIFIED VENOUS INSUFFICIENCY ICD-459.81 [place] [facility] Adam Yates MD ADENOCARCINOMA, ASCENDING COLON [...] 1 injection every 2 weeks 01/09 CYANOCOBALAMIN 74257686234 Active Laura Elder Active VITAMIN D3 4000 IU 1 tab 3 times daily VITAMIN D3 400 0 IU Active Hope Benavidez MD PhD Active BACTRIM DS 800-160 MG TABS 1 pill by mouth twice daily, for UTI SULFAMETHOXAZOLE-TRIMETHOPRIM 99800778032 No Longer Active Lisa Benavidez MD PhD Active PROLIA 60 MG/ML SOLN 1 shot every 6 months for osteoprosis DENOSUMAB 80594375545 Active Hope Benavidez MD PhD Active CALCIUM + D + K 750-500-40 MG-UNT-MCG TABS 1 tab by mouth tw ice daily CALCIUM-VITAMIN D-VITAMIN K 80856512110 Active Hope landers MD PhD Active DAILY VALUE MULTIVITAMIN TABS 1 tab by mouth twice daily MULTIPLE VITAMIN 90743485266 Active Hope Benavidez MD PhD Active FISH OIL 306 MG CAPS 1 tab by mouth three times daily OMEGA-3 FATTY ACIDS 49035235520 Active Hope Benavidez MD PhD Active LUTEIN 10 MG TABS 1 tab daily LUTEIN 61370371948 Act cash Hope Benavidez MD PhD Active FLORANEX PACK 1 pack three times daily, for bowel health LACTOBACILLUS 39765242143 Active Hope Benavidez MD PhD Active LOMOTIL 2.5-0.025 MG TABS 1 tab by mouth prn DIPHENOXYLATE-ATROPINE 25213609235 Active Hope Benavidez MD PhD Active TRIAMTERENE-HCTZ 37.5-25 MG TABS 1 tab by mouth daily TRIAMTERENE-HCTZ 26049351143 Active Hope Benavidez MD PhD Acti ve IRON 325 (65 FE) MG TABS 1 tab daily FERROUS SULF ATE 82479081062 Active Hope Benavidez MD PhD Active MAGNESIUM GLUCONATE 250 MG TABS 1 tab tid MAGN ESIUM GLUCONATE 33531848340 Active Adam Yates MD Active ATENOLOL 50 MG TABS 1/2 tab q other day m-w-f ATE NOLOL 86385962317 Active Hope Benavidez MD PhD Active PROPRANOLOL HCL 80 MG TABS 1 tab tue. and thur. PROPRANOLOL HCL 85279207799 Active Adam Yates MD Active CYCLOBENZAPRINE HCL 10 MG TABS 1 tablet by mouth three times daily as needed for headaches CYCLOBENZAPRINE HCL 62853999087 No Longe r Active Adam Yates MD Active OMEPRAZOLE 20 MG CPDR 1 tablet by mouth daily for GERD OMEPRAZOLE 80581250897 No Longer Active Adam Yates MD A ctive ZOFRAN 8 MG TABS 1 tab by mouth every 12 hours prn 201 05/16/09 ONDANSETRON HCL 41907960182 No Longer Active Adam Yates MD Active PHENADOZ 25 MG SUPP 1 every 4 hrs. PRN PROMETHA ZINE HCL 23938936175 No Longer Active Adam Yates MD Active POTASSIUM CHLORIDE 20 MEQ PACK by mouth twice a day prn POTASSIUM CHLORIDE 04686254450 No Longer Active Adam Yates MD Active PROMETHAZINE HCL 25 MG TABS 1 Q. 4 hr. PRN PROM ETHAZINE HCL 19875292034 No Longer Active Adam Yates MD Active INNOPRAN XL 120 MG [id number] Take one by mouth daily 2 PROPRANOLOL HCL SR BEADS 65009009243 No Longer Active Adam aYtes MD A ctive FLAGYL 500 MG TABS 1 pill by mouth three times daily, for diarrh ea METRONIDAZOLE 25189764108 No Longer Active Hope Benavidez MD PhD Active DYAZIDE 37.5-25 MG CAPS 1 qd TRIAMTERENE-HC TZ 98743847001 No Longer Active Hope Benavidez MD PhD Active PROZAC 20 MG CAPS 1 q d FLUOXETINE HCL 48653 933252 No Longer Active Hope Benavidez MD PhD Active SIMVASTATIN 40 MG TABS 1 qd SIMVASTATIN 004 54393967 No Longer Active Adam Yates MD Active MELOXICAM 15 MG TABS 1 qd MELOXICAM 4107336 8472 No Longer Active Adam Yates MD Active IMODIUM A-D 2 MG TABS 2 onset at diarrhea and prn. LOPERAMIDE HCL 70831050186 Active Hope Benavidez MD PhD Active EXCEDRIN EXTRA STRENGTH 250-250-65 MG TABS 1-2 q6h PRN headache 201 04/16/21 [id number] 84804817039 Active Hope Benavidez MD PhD Active FLAGYL 500 MG TABS 1 qid METRONIDAZOLE 83558 511686 No Longer Active Adam Yates MD Active LEVAQUIN 750 MG TABS 1 qd LEVOFLOXACIN 5486 4915472 No Longer Active Adam Yates MD Active ADULT ASPIRIN LOW STRENGTH 81 MG TBDP 1 qd A SPIRIN 52458879059 Active Hope Benavidez MD PhD Active LEVAQUIN 750 MG TABS 1 qd LEVAQUIN 750 MG T ABS 973184 LEVOFLOXACIN Inactive FLAGYL 500 MG TABS 1 qid FLAGYL 500 MG TABS 779994 METRONIDAZOLE Inactive MELOXICAM 15 MG TABS 1 qd MELOXICAM 15 MG T ABS 921523 MELOXICAM Inactive SIMVASTATIN 40 MG TABS 1 qd SIMVASTATIN 40 MG TABS 926200 SIMVASTATIN Inactive PROZAC 20 MG CAPS 1 q d PROZAC 20 MG CAPS 31 0385 FLUOXETINE HCL Inactive DYAZIDE 37.5-25 MG CAPS 1 qd DYAZIDE 37.5 -25 MG CAPS 953460 TRIAMTERENE-HCTZ Inactive INNOPRAN XL 120 MG [id number] Take one by mouth daily 2 INNOPRAN XL 120 MG [id number] PROPRANOLOL HCL SR BEADS Inactive PROMETHAZINE HCL 25 MG TABS 1 Q. 4 hr. PRN PROMETHAZINE HCL 25 MG TABS 321848 PROMETHAZINE HCL Inactive POTASSIUM CHLORIDE 20 MEQ PACK by mouth twice a day prn POTASSIUM CHLORIDE 20 MEQ PACK 454189 POTASSIUM CHLORIDE Inactive PHENADOZ 25 MG SUPP 1 every 4 hrs. PRN PHENADOZ 2 5 MG SUPP 447557 PROMETHAZINE HCL Inactive ZOFRAN 8 MG TABS 1 tab by mouth every 12 hours prn 201 05/16/09 ZOFRAN 8 MG TABS 306260 ONDANSETRON HCL Inactive OMEPRAZOLE 20 MG CPDR 1 tablet by mouth daily for GERD OMEPRAZOLE 20 MG CPDR 070478 OMEPRAZOLE Inactive CYCLOBENZAPRINE HCL 10 MG TABS 1 tablet by mouth three times daily as needed for headaches CYCLOBENZAPRINE HCL 10 MG TABS 158738 CYCLOBENZAPRINE HCL Inactive FLAGYL 500 MG TABS 1 pill by mouth three times daily, for diarrh ea FLAGYL 500 MG TABS 428284 METRONIDAZOLE Inactive BACTRIM DS 800-160 MG TABS [...] Range Description Chart Maintenance: labs added to [employer] et - Chemistry magnesium, serum 2.0 mg/dL Chart Maintenance: Outside labs entered on [employer] - Chemistry sodium, serum 139 mmol/L potassium, serum 3.9 mmol/L blood glucose 85 mg/dL creatinine, serum 1.26 mg/dL aspartate aminotransferase (SGOT), serum 33 U/L alanine aminotransferase (SGPT), serum 44 U/L alkaline phosphatase, serum 127 U/L Chart Maintenance: Outside labs entered on [employer] - Hematology leukocyte count, blood 4.6 10*3/mm3 hemoglobin, blood 13.6 g/dL platelet count 162 10*3/mm3 Lab Report: Basic Metabolic Panel - Chem istry sodium, serum 136 mmol/L 497-818 5192/05/02 urea nitrogen, blood 11 mg/dL 7-18 creatinine, serum 1.10 mg/dL 0.60-1.30 potassium, serum 4.1 mmol/L 3.5-5.2 chloride, serum 99 mmol/L 98-107 carbon dioxide, venous blood 30.7 mmol/L 21.0-32 .0 blood glucose 79 mg/dL 65-110 calcium, serum 8.7 mg/dL 8.5-10.1 Lab Report: [facility] - Chemistry sodium, serum 141 mmol/L potassium, serum 4.2 mmol/L blood glucose 66 mg/dL creatinine, serum 1.16 mg/dL Lab Report: CBC W/ DIFF, [facility], [facility], AN AEROBIC CX - Chemistry blood glucose 79 mg/dL creatinine, serum 1.02 mg/dL magnesium, serum 1.2 mg/dL potassium, serum 3.8 mmol/L sodium, serum 137 mmol/L Lab Report: CBC W/ DIFF, [facility], [facility], AN AEROBIC CX - Hematology platelet count 319 10*3/mm3 hemoglobin, blood 10.8 g/dL leukocyte count, blood 8.7 10*3/mm3 Lab Report: CBC W/DIFF - Hematology leukocyte count, blood 3.1 10^3/MM^3 10*3/mm3 4.6-10.2 hematocrit, blood 26.3 % 36.0-46.0 mean corpuscular volume, RBC 103 fL 80-97 mean corpuscular hemoglobin, RBC 34.3 pg 27. 0-31.2 mean corpuscular hemoglobin concentration, RBC 33.5 G/DL % 31.8-35.4 red blood cell distribution width 19.7 % 11 .6-14.8 platelet count 22 10^3/MM^3 10*3/mm3 798-945 3814/01/17 neutrophils as percent of blood leukocytes 72.6 % 42.2-75.2 monocytes as percent of blood leukocytes 10.8 % 1.7-9.3 lymphocytes as percent of blood leukocytes 13.7 % 20.5-51.1 erythrocyte (RBC) count 2.56 10^6/MM^3 10*6/mm3 4.04-5.4 8 hemoglobin, blood 8.8 g/dL 12.0-16.0 red blood cell distribution width 18.1 % 11 .6-14.8 platelet count 102 10^3/MM^3 10*3/mm3 091-203 6541/12/10 mean corpuscular hemoglobin concentration, RBC 33.1 G/DL [...] leukocyte count, blood 9.0 10^3/MM^3 10*3/mm3 4.6-10.2 hematocrit, blood 33.1 % 36.0-46.0 mean corpuscular volume, RBC 100 fL 80-97 mean corpuscular hemoglobin, RBC 33.3 pg 27. 0-31.2 mean corpuscular hemoglobin concentration, RBC 33.3 G/DL % 31.8-35.4 red blood cell distribution width 18.6 % 11 .6-14.8 platelet count 133 10^3/MM^3 10*3/mm3 191-652 2579/01/08 neutrophils as percent of blood leukocytes 79.9 % 42.2-75.2 monocytes as percent of blood leukocytes 7.3 % 1.7-9.3 lymphocytes as percent of blood leukocytes 10.9 % 20.5-51.1 erythrocyte (RBC) count 3.30 10^6/MM^3 10*6/mm3 4.04-5.4 8 hemoglobin, blood 11.0 g/dL 12.0-16.0 Lab Report: CBC W/DIFF, Comp. Metabolic Panel - Chemistry sodium, serum 142 mmol/L 968-157 0589/01/03 potassium, serum 3.4 mmol/L 3.5-5.2 chloride, serum [...] 0.50 mg/dL 0.00-1.00 sodium, serum 140 mmol/L 033-587 0023/01/06 potassium, serum 3.4 mmol/L 3.5-5.2 chloride, serum [...] 0.40 mg/dL 0.00-1.00 sodium, serum 139 mmol/L 173-789 0665/01/21 potassium, serum 3.4 mmol/L 3.5-5.2 chloride, serum [...] 0.40 mg/dL 0.00-1.00 sodium, serum 138 mmol/L 970-034 1694/01/28 potassium, serum 3.2 mmol/L 3.5-5.2 chloride, serum [...] 0.40 mg/dL 0.00-1.00 sodium, serum 140 mmol/L 130-562 1479/02/04 potassium, serum 3.6 mmol/L 3.5-5.2 chloride, serum [...] 0.70 mg/dL 0.00-1.00 sodium, serum 136 mmol/L 539-564 2739/04/03 potassium, serum 3.7 mmol/L 3.5-5.2 chloride, serum [...] serum, total 0.40 mg/dL 0.00-1.00 chloride, serum 98 mmol/L 98-107 [...] 0.50 mg/dL 0.00-1.00 sodium, serum 136 mmol/L 175-486 2345/02/11 potassium, serum 3.1 mmol/L 3.5-5.2 chloride, serum [...] 0.50 mg/dL 0.00-1.00 sodium, serum 139 mmol/L 880-104 2127/02/18 potassium, serum 3.6 mmol/L 3.5-5.2 sodium, serum 138 mmol/L 282-443 1153/08/14 potassium, serum 4.0 mmol/L 3.5-5.2 chloride, serum [...] 11 .6-14.8 platelet count 193 10^3/MM^3 10*3/mm3 750-657 8214/02/11 neutrophils as percent of blood leukocytes 70.0 % 42.2-75.2 monocytes as percent of blood leukocytes 7.9 % 1.7-9.3 lymphocytes as percent of blood leukocytes 21.0 % 20.5-51.1 erythrocyte (RBC) count 2.91 10^6/MM^3 10*6/mm3 4.04-5.4 8 hemoglobin, blood 9.6 g/dL 12.0-16.0 leukocyte count, blood 8.1 10^3/MM^3 10*3/mm3 4.6-10.2 hematocrit, blood 25.1 % 36.0-46.0 mean corpuscular volume, RBC 106 fL 80-97 mean corpuscular hemoglobin, RBC 34.3 pg 27. 0-31.2 mean corpuscular hemoglobin concentration, RBC 32.5 G/DL % 31.8-35.4 red blood cell distribution width 20.7 % 11 .6-14.8 platelet count 96 10^3/MM^3 10*3/mm3 882-811 4639/02/18 leukocyte count, blood 4.0 10^3/MM^3 10*3/mm3 4.6-10.2 [...] 11 .6-14.8 platelet count 134 10^3/MM^3 10*3/mm3 491-079 9123/04/03 leukocyte count, blood 5.6 10^3/MM^3 10*3/mm3 4.6-10.2 [...] 11 .6-14.8 platelet count 246 10^3/MM^3 10*3/mm3 068-089 3400/02/04 neutrophils as percent of blood leukocytes 70.8 % 42.2-75.2 monocytes as percent of blood leukocytes 8.5 % 1.7-9.3 lymphocytes as percent of blood leukocytes 19.3 % 20.5-51.1 erythrocyte (RBC) count 3.57 10^6/MM^3 10*6/mm3 4.04-5.4 8 hemoglobin, blood 11.6 g/dL 12.0-16.0 leukocyte count, blood 4.8 10^3/MM^3 10*3/mm3 4.6-10.2 hematocrit, blood 28.9 % 36.0-46.0 mean corpuscular volume, RBC 99 fL 80-97 mean corpuscular hemoglobin, RBC 32.9 pg 27. 0-31.2 mean corpuscular hemoglobin concentration, RBC 33.1 G/DL % 31.8-35.4 red blood cell distribution width 20.6 % 11 .6-14.8 platelet count 102 10^3/MM^3 10*3/mm3 892-925 9961/01/28 neutrophils as percent of blood leukocytes 59.8 % 42.2-75.2 monocytes as percent of blood leukocytes 9.4 % 1.7-9.3 lymphocytes as percent of blood leukocytes 29.1 % 20.5-51.1 erythrocyte (RBC) count 2.24 10^6/MM^3 10*6/mm3 4.04-5.4 8 hemoglobin, blood 7.7 g/dL 12.0-16.0 leukocyte count, blood 3.6 10^3/MM^3 10*3/mm3 4.6-10.2 hematocrit, blood 35.2 % 36.0-46.0 mean corpuscular volume, RBC 99 fL 80-97 mean corpuscular hemoglobin, RBC 32.5 pg 27. 0-31.2 mean corpuscular hemoglobin concentration, RBC 32.9 G/DL % 31.8-35.4 red blood cell distribution width 18.5 % 11 .6-14.8 platelet count 70 10^3/MM^3 10*3/mm3 252-470 2277/01/21 neutrophils as percent of blood leukocytes 69.6 % 42.2-75.2 monocytes as percent of blood leukocytes 11.7 % 1.7-9.3 lymphocytes as percent of blood leukocytes 17.1 % 20.5-51.1 erythrocyte (RBC) count 2.40 10^6/MM^3 10*6/mm3 4.04-5.4 8 hemoglobin, blood 8.2 g/dL 12.0-16.0 leukocyte count, blood 4.2 10^3/MM^3 10*3/mm3 4.6-10.2 hematocrit, blood 23.7 % 36.0-46.0 mean corpuscular volume, RBC 106 fL 80-97 mean corpuscular hemoglobin, RBC 34.6 pg 27. 0-31.2 mean corpuscular hemoglobin concentration, RBC 32.6 G/DL % 31.8-35.4 red blood cell distribution width 22.5 % 11 .6-14.8 platelet count 73 10^3/MM^3 10*3/mm3 995-727 7542/01/21 leukocyte count, blood 4.9 10^3/MM^3 10*3/mm3 4.6-10.2 hematocrit, blood 25.1 % 36.0-46.0 mean corpuscular volume, RBC 105 fL 80-97 mean corpuscular hemoglobin, RBC 34.4 pg 27. 0-31.2 mean corpuscular hemoglobin concentration, RBC 32.9 G/DL % 31.8-35.4 red blood cell distribution width 20.8 % 11 .6-14.8 platelet count 38 recounted 10^3/mm^3 10*3/mm3 246-322 4503/01/06 neutrophils as percent of blood leukocytes 79.0 % 42.2-75.2 monocytes as percent of blood leukocytes 6.0 % 1.7-9.3 lymphocytes as percent of blood leukocytes 13.2 % 20.5-51.1 erythrocyte (RBC) count 2.22 10^6/MM^3 10*6/mm3 4.04-5.4 8 hemoglobin, blood 7.8 Verified By Repeat Analysis g/dL g/dL 12.0-16.0 neutrophils as percent of blood leukocytes 76.2 % 42.2-75.2 monocytes as percent of blood leukocytes 8.9 % 1.7-9.3 lymphocytes as percent of blood leukocytes 12.9 % 20.5-51.1 erythrocyte (RBC) count 2.37 10^6/MM^3 10*6/mm3 4.04-5.4 8 hemoglobin, blood 8.1 g/dL 12.0-16.0 leukocyte count, blood 7.6 10^3/MM^3 10*3/mm3 4.6-10.2 hematocrit, blood 23.6 % 36.0-46.0 mean corpuscular volume, RBC 106 fL 80-97 mean corpuscular hemoglobin, RBC 34.9 pg 27. 0-31.2 mean corpuscular hemoglobin concentration, RBC 32.8 G/DL % 31.8-35.4 red blood cell distribution width 20.3 % 11 .6-14.8 platelet count 132 10^3/MM^3 10*3/mm3 142-424 Lab Report: CBC W/DIFF, Comp. Metabolic Panel, Manual Diff/Morphology - Chemistry sodium, serum 141 mmol/L 786-018 4243/01/14 potassium, serum 3.9 mmol/L 3.5-5.2 chloride, serum [...] 0.50 mg/dL 0.00-1.00 sodium, serum 140 mmol/L 711-855 5977/12/17 potassium, serum 3.3 mmol/L 3.5-5.2 chloride, serum [...] 0.50 mg/dL 0.00-1.00 sodium, serum 138 mmol/L 671-881 5872/12/24 potassium, serum 3.7 mmol/L 3.5-5.2 Lab Report: CBC W/DIFF, Comp. Metabolic Panel, Manual Diff/Morphology - Hematology neutrophils as percent of blood leukocytes 69.2 % 42.2-75.2 monocytes as percent of blood leukocytes 13.5 % 1.7-9.3 lymphocytes as percent of blood leukocytes 14.2 % 20.5-51.1 erythrocyte (RBC) count 2.78 10^6/MM^3 10*6/mm3 4.04-5.4 8 hemoglobin, blood 8.8 g/dL 12.0-16.0 neutrophils as percent of blood leukocytes ----- % % 42.2-75.2 monocytes as percent of blood leukocytes 4.3 % 1.7-9.3 lymphocytes as percent of blood leukocytes 7.7 % 20.5-51.1 erythrocyte (RBC) count 2.72 10^6/MM^3 10*6/mm3 4.04-5.4 8 hemoglobin, blood 8.7 g/dL 12.0-16.0 mean corpuscular volume, RBC 98 fL 80-97 mean corpuscular hemoglobin, RBC 31.8 pg 27. 0-31.2 mean corpuscular hemoglobin concentration, RBC 32.3 G/DL % 31.8-35.4 red blood cell distribution width 17.6 % 11 .6-14.8 leukocyte count, blood 18.6 10^3/MM^3 10*3/mm3 4.6-10.2 leukocyte count, blood 14.0 10^3/MM^3 10*3/mm3 4.6-10.2 hematocrit, blood 27.0 % 36.0-46.0 mean corpuscular volume, RBC 99 fL 80-97 mean corpuscular hemoglobin, RBC 32.0 pg 27. 0-31.2 mean corpuscular hemoglobin concentration, RBC 32.3 G/DL % 31.8-35.4 red blood cell distribution width 18.8 % 11 .6-14.8 platelet count 66 10^3/MM^3 10*3/mm3 771-437 0587/12/17 hematocrit, blood 27.3 % 36.0-46.0 platelet count 75 10^3/MM^3 10*3/mm3 128-931 3121/01/14 neutrophils as percent of blood leukocytes 73.5 % 42.2-75.2 monocytes as percent of blood leukocytes 12.5 % 1.7-9.3 lymphocytes as percent of blood leukocytes 12.4 % 20.5-51.1 erythrocyte (RBC) count 2.63 10^6/MM^3 10*6/mm3 4.04-5.4 8 hemoglobin, blood 9.0 g/dL 12.0-16.0 leukocyte count, blood 6.2 10^3/MM^3 10*3/mm3 4.6-10.2 hematocrit, blood 27.0 % 36.0-46.0 mean corpuscular volume, RBC 103 fL 80-97 mean corpuscular hemoglobin, RBC 34.2 pg 27. 0-31.2 mean corpuscular hemoglobin concentration, RBC 33.3 G/DL % 31.8-35.4 red blood cell distribution width 18.3 % 11 .6-14.8 platelet count 22 10^3/MM^3 10*3/mm3 142-424 Lab Report: CBC W/DIFF, Manual Diff/Morp hology - Hematology leukocyte count, blood 3.6 10^3/MM^3 10*3/mm3 4.6-10.2 hematocrit, blood 25.4 % 36.0-46.0 mean corpuscular volume, RBC 103 fL 80-97 mean corpuscular hemoglobin, RBC 34.6 pg 27. 0-31.2 mean corpuscular hemoglobin concentration, RBC 33.7 G/DL % 31.8-35.4 red blood cell distribution width 19.0 % 11 .6-14.8 platelet count 16 10^3/MM^3 10*3/mm3 088-186 0089/01/16 neutrophils as percent of blood leukocytes 62.5 % 42.2-75.2 monocytes as percent of blood leukocytes 18.4 % 1.7-9.3 lymphocytes as percent of blood leukocytes 17.5 % 20.5-51.1 erythrocyte (RBC) count 2.47 10^6/MM^3 10*6/mm3 4.04-5.4 8 hemoglobin, blood 8.5 g/dL 12.0-16.0 Lab Report: [facility] - Serology carcinoembryonic antigen 0.7 ng/mL carcinoembryonic antigen 0.9 ng/mL Lab Report: cmp - Chemistry sodium, serum 142 mmol/L potassium, serum 4.0 mmol/L blood glucose 115 mg/dL creatinine, serum 1.24 mg/dL Lab Report: Comp. Metabolic Panel - Chem istry sodium, serum 142 mmol/L 965-614 6880/12/10 potassium, serum 3.9 mmol/L 3.5-5.2 chloride, serum [...] Diff/Morphology - Chemistry sodium, serum 142 mmol/L 412-913 6057/12/31 creatinine, serum 2.20 mg/dL 0.60-1.30 alanine aminotransferase (SGPT), serum 19 U/L - aspartate aminotransferase (SGOT), serum 24 U/L 15-37 alkaline phosphatase, serum 173 U/L 50-136 calcium, serum 8.5 mg/dL 8.5-10.1 bilirubin, serum, total 0.40 mg/dL 0.00-1.00 potassium, serum 3.6 mmol/L 3.5-5.2 chloride, serum 101 mmol/L 98-107 carbon dioxide, venous blood 30.0 mmol/L 21.0-32 .0 blood glucose 101 mg/dL 65-110 urea nitrogen, blood 36 mg/dL 7-18 Lab Report: Comp. Metabolic Panel, CBC W [...] Panel - Chemistry cholesterol, serum 209 mg/dL 203-296 7998/09/11 triglyceride, serum, fasting 113 mg/dL 30-200 HDL [...] 5.0-8.5 Encounters Code Encounter Date Provider Facility CPT-36264 Level 4 Est. Patient 19:08:42 PANEL ASSEMBLER Hope cohn MD PhD [facility] CPT-74048 Level 4 Est. Patient 20:04:51 CDT Hope cohn MD PhD [facility] CPT-77896 Level 3 New Patient 01:46:11 PANEL ASSEMBLER Hope landers MD PhD [facility] Procedures Code Procedure Name Date Entry Date Standard Desc ription CPT-J3420 Vitamin B12 1000mcg (Cyanocobalamin) 09:25:05 PANEL [employer]SEM[employer] CPT-71813 Abx/Therapy Injection 09:25:05 PANEL [employer]SEM[employer]ER CPT-G0008 Administration of Influenza Virus Vaccine 13:36:47 CDT CPT-00117 Fluzone High-Dose Intramuscular Suspension 11/15 13:36:47 CDT CPT-J0897 Prolia 60 mg 08:50:41 CDT CPT-90591 Abx/Therapy Injection 08:50:41 CDT CPT-92128 Bone Density 12:06:12 CDT CPT-65733 Bone Density 08:54:40 CDT CPT-OV Office Visit 15:37:02 CDT CPT-22775 Postop F/U Visit 15:47:49 CDT CPT-73896 Postop F/U Visit 15:21:02 CDT CPT-TCM Transitional Care Mgmt-High 07:52:27 CDT 20 20/06/01 CPT-86355 Venipuncture Draw Fee 13:51:18 CDT CPT-69265 Venipuncture Draw Fee 10:14:55 PANEL ASSEMBLER CPT-33683 Venipuncture Draw Fee 13:39:45 PANEL ASSEMBLER CPT-OV Office Visit 15:11:22 PANEL ASSEMBLER CPT-25013 Venipuncture Draw Fee 09:20:49 PANEL ASSEMBLER CPT-59476 Venipuncture Draw Fee 16:52:15 PANEL ASSEMBLER CPT-83191 Venipuncture Draw Fee 10:37:24 PANEL ASSEMBLER CPT-01698 Venipuncture Draw Fee 08:21:21 PANEL ASSEMBLER CPT-30938 Venipuncture Draw Fee 08:30:20 PANEL ASSEMBLER CPT-59093 Venipuncture Draw Fee 14:53:21 PANEL ASSEMBLER CPT-75914 Venipuncture Draw Fee 09:40:56 PANEL ASSEMBLER CPT-97361 Venipuncture Draw Fee 10:30:47 PANEL ASSEMBLER CPT-45196 Venipuncture Draw Fee 10:46:17 PANEL ASSEMBLER CPT-82898 Venipuncture Draw Fee 11:12:45 PANEL ASSEMBLER CPT-62985 Venipuncture Draw Fee 09:53:33 PANEL ASSEMBLER CPT-22678 Venipuncture Draw Fee 11:53:51 PANEL ASSEMBLER CPT-28367 Venipuncture Draw Fee 10:33:50 PANEL ASSEMBLER CPT-67849 Venipuncture Draw Fee 10:05:01 PANEL ASSEMBLER CPT-15618 Venipuncture Draw Fee 14:32:52 PANEL ASSEMBLER CPT-69132 Venipuncture Draw Fee 09:46:13 PANEL ASSEMBLER CPT-51461 Venipuncture Draw Fee 11:34:27 PANEL ASSEMBLER CPT-09394 Venipuncture Draw Fee 13:17:16 PANEL ASSEMBLER CPT-84062 Venipuncture Draw Fee 12:05:39 CDT CPT-28324 Venipuncture Draw Fee 12:49:12 CDT CPT-07345 Venipuncture Draw Fee 12:37:18 CDT CPT-59960 Venipuncture Draw Fee 10:57:11 CDT CPT-99373 Venipuncture Draw Fee 13:47:40 CDT CPT-57394 Venipuncture Draw Fee 10:02:17 CDT CPT-84497 TB Tubersol 17:32:32 CDT CPT-OV Office Visit 16:21:53 CDT CPT-OV Office Visit 15:49:22 CDT CPT-OV Office Visit 17:16:31 CDT CPT-OV Office Visit 10:43:31 CDT
--- OUTSIDE RECORDS SUMMARY | 2019-02-09 13:29 | XMS REPORT | Clinical Summary ---
Author Author Renaldo, Florecita Munoz Organization [facility] Address Unknown Phone Unavailable Allergies, Adverse [...] cohn MD PhD UNSPECIFIED VENOUS INSUFFICIENCY ICD-459.81 [place] ctive Adam Yates MD ADENOCARCINOMA, ASCENDING COLON [...] shot every 6 months for osteoprosis DENOSUMAB 98967044498 Active Hope Benavidez MD PhD Active CALCIUM + D + K 750-500-40 MG-UNT-MCG TABS 1 tab by mouth tw ice daily CALCIUM-VITAMIN D-VITAMIN K 99557069440 Active Hope landers MD PhD Active DAILY VALUE MULTIVITAMIN TABS 1 tab by mouth twice daily MULTIPLE VITAMIN 89800104209 Active Hpoe Benavidez MD PhD Active FISH OIL 306 MG CAPS 1 tab by mouth three times daily OMEGA-3 FATTY ACIDS 64664780786 Active Hope Benavidez MD PhD Active LUTEIN 10 MG TABS 1 tab daily LUTEIN 47023333401 Act cash Hope Benavidez MD PhD Active FLORANEX PACK 1 pack three times daily, for bowel health LACTOBACILLUS 87010979533 Active Hope Benavidez MD PhD Active LOMOTIL 2.5-0.025 MG TABS 1 tab by mouth prn DIPHENOXYLATE-ATROPINE 27522722846 Active Hope Benavidez MD PhD Active TRIAMTERENE-HCTZ 37.5-25 MG TABS 1 tab by mouth daily TRIAMTERENE-HCTZ 78055232026 Active Hope Benavidez MD PhD Acti ve IRON 325 (65 FE) MG TABS 1 tab daily FERROUS SULF ATE 44536485481 Active Hope Benavidez MD PhD Active MAGNESIUM GLUCONATE 250 MG TABS 1 tab tid MAGN ESIUM GLUCONATE 05319280456 Active Adam Yates MD Active ATENOLOL 50 MG TABS 1/2 tab q other day m-w-f ATE NOLOL 53878743692 Active Adam Yates MD Active PROPRANOLOL HCL 80 MG TABS 1 tab tue. and thur. PROPRANOLOL HCL 69873161477 Active Adam Yates MD Active CYCLOBENZAPRINE HCL 10 MG TABS 1 tablet by mouth three times daily as needed for headaches CYCLOBENZAPRINE HCL 52306755228 No Longe r Active Adam Yates MD Active OMEPRAZOLE 20 MG CPDR 1 tablet by mouth daily for GERD OMEPRAZOLE 28151372542 No Longer Active Adam Yates MD A ctive ZOFRAN 8 MG TABS 1 tab by mouth every 12 hours prn 201 05/16/09 ONDANSETRON HCL 38183524181 No Longer Active Adam Yates MD Active PHENADOZ 25 MG SUPP 1 every 4 hrs. PRN PROMETHA ZINE HCL 19428327955 No Longer Active Adam Yates MD Active POTASSIUM CHLORIDE 20 MEQ PACK by mouth twice a day prn POTASSIUM CHLORIDE 18197653949 No Longer Active Adam Yates MD Active PROMETHAZINE HCL 25 MG TABS 1 Q. 4 hr. PRN PROM ETHAZINE HCL 64840735928 No Longer Active Adam Yates MD Active INNOPRAN XL 120 MG [id number] Take one by mouth daily 2 PROPRANOLOL HCL SR BEADS 96505870516 No Longer Active Adam Yates MD A ctive FLAGYL 500 MG TABS 1 pill by mouth three times daily, for diarrh ea METRONIDAZOLE 27074678881 No Longer Active Hope Benavidez MD PhD Active DYAZIDE 37.5-25 MG CAPS 1 qd TRIAMTERENE-HC TZ 19876681825 No Longer Active Hope Benavidez MD PhD Active PROZAC 20 MG CAPS 1 q d FLUOXETINE HCL 19899 046182 No Longer Active Hope Benavidez MD PhD Active SIMVASTATIN 40 MG TABS 1 qd SIMVASTATIN 004 97453751 No Longer Active Adam Yates MD Active MELOXICAM 15 MG TABS 1 qd MELOXICAM 3860742 7524 No Longer Active Adam Yates MD Active IMODIUM A-D 2 MG TABS 2 onset at diarrhea and prn. LOPERAMIDE HCL 55994276051 Active Hope Benavidez MD PhD Active EXCEDRIN EXTRA STRENGTH 250-250-65 MG TABS 1-2 q6h PRN headache 201 04/16/21 [id number] 44559987398 Active Hope Benavidez MD PhD Active FLAGYL 500 MG TABS 1 qid METRONIDAZOLE 70661 533078 No Longer Active Adam Yates MD Active LEVAQUIN 750 MG TABS 1 qd LEVOFLOXACIN 5486 6372490 No Longer Active Adam Yates MD Active ADULT ASPIRIN LOW STRENGTH 81 MG TBDP 1 qd A SPIRIN 00443774731 Active Hope Benavidez MD PhD Active LEVAQUIN 750 MG TABS 1 qd LEVAQUIN 750 MG T ABS 661422 LEVOFLOXACIN Inactive FLAGYL 500 MG TABS 1 qid FLAGYL 500 MG TABS 436259 METRONIDAZOLE Inactive MELOXICAM 15 MG TABS 1 qd MELOXICAM 15 MG T ABS 925497 MELOXICAM Inactive SIMVASTATIN 40 MG TABS 1 qd SIMVASTATIN 40 MG TABS 145908 SIMVASTATIN Inactive PROZAC 20 MG CAPS 1 q d PROZAC 20 MG CAPS 31 0385 FLUOXETINE HCL Inactive DYAZIDE 37.5-25 MG CAPS 1 qd DYAZIDE 37.5 -25 MG CAPS 19820212 TRIAMTERENE-HCTZ Inactive INNOPRAN XL 120 MG [id number] Take one by mouth daily 2 INNOPRAN XL 120 MG [id number] PROPRANOLOL HCL SR BEADS Inactive PROMETHAZINE HCL 25 MG TABS 1 Q. 4 hr. PRN PROMETHAZINE HCL 25 MG TABS 617035 PROMETHAZINE HCL Inactive POTASSIUM CHLORIDE 20 MEQ PACK by mouth twice a day prn POTASSIUM CHLORIDE 20 MEQ PACK 572944 POTASSIUM CHLORIDE Inactive PHENADOZ 25 MG SUPP 1 every 4 hrs. PRN PHENADOZ 2 5 MG SUPP 695590 PROMETHAZINE HCL Inactive ZOFRAN 8 MG TABS 1 tab by mouth every 12 hours prn 201 05/16/09 ZOFRAN 8 MG TABS 815021 ONDANSETRON HCL Inactive OMEPRAZOLE 20 MG CPDR 1 tablet by mouth daily for GERD OMEPRAZOLE 20 MG CPDR 662127 OMEPRAZOLE Inactive CYCLOBENZAPRINE HCL 10 MG TABS 1 tablet by mouth three times daily as needed for headaches CYCLOBENZAPRINE HCL 10 MG TABS 628131 CYCLOBENZAPRINE HCL Inactive FLAGYL 500 MG TABS 1 pill by mouth three times daily, for diarrh ea FLAGYL 500 MG TABS 023093 METRONIDAZOLE Inactive Advance Directives Directive Description Start [...] - Chem istry sodium, serum 136 mmol/L 143-620 5211/05/02 potassium, serum 4.1 mmol/L 3.5-5.2 chloride, serum 99 mmol/L 98-107 carbon dioxide, venous blood 30.7 mmol/L 21.0-32 .0 blood glucose 79 mg/dL 65-110 calcium, serum 8.7 mg/dL 8.5-10.1 urea nitrogen, blood 11 mg/dL 7-18 creatinine, serum 1.10 mg/dL 0.60-1.30 sodium, serum 137 mmol/L 548-132 9009/11/01 urea nitrogen, blood 23 mg/dL 7-18 creatinine, serum 1.50 mg/dL 0.60-1.30 potassium, serum 3.7 mmol/L 3.5-5.2 chloride, serum 100 mmol/L 98-107 carbon dioxide, venous blood 31.8 mmol/L 21.0-32 .0 blood glucose 98 mg/dL 65-110 calcium, serum 8.6 mg/dL 8.5-10.1 Lab Report: BMP - Chemistry sodium, serum 141 mmol/L potassium, serum 4.2 mmol/L blood glucose 66 mg/dL creatinine, serum 1.16 mg/dL Lab Report: [facility]/ [facility]FF, [facility] - Chemistry [...] 11 .6-14.8 platelet count 133 10^3/MM^3 10*3/mm3 296-386 2567/01/17 leukocyte count, blood 3.1 10^3/MM^3 10*3/mm3 4.6-10.2 [...] 11 .6-14.8 platelet count 22 10^3/MM^3 10*3/mm3 218-641 7134/11/19 leukocyte count, blood 10.4 10^3/MM^3 10*3/mm3 4.6-10.2 [...] Verified By Repeat Analysis 10^3/mm ^3 10*3/mm3 948-576 9565/12/10 leukocyte count, blood 7.8 10^3/MM^3 10*3/mm3 4.6-10.2 [...] Panel - Chemistry sodium, serum 139 mmol/L 780-383 8912/12/03 potassium, serum 3.7 mmol/L 3.5-5.2 chloride, serum [...] 0.40 mg/dL 0.00-1.00 sodium, serum 142 mmol/L 549-229 9507/01/03 potassium, serum 3.4 mmol/L 3.5-5.2 chloride, serum [...] 0.50 mg/dL 0.00-1.00 sodium, serum 137 mmol/L 755-442 5016/10/01 potassium, serum 3.5 mmol/L 3.5-5.2 chloride, serum [...] 0.60 mg/dL 0.00-1.00 sodium, serum 139 mmol/L 803-899 1251/10/17 potassium, serum 3.1 mmol/L 3.5-5.2 chloride, serum [...] 0.30 mg/dL 0.00-1.00 sodium, serum 140 mmol/L 200-849 2453/01/06 potassium, serum 3.4 mmol/L 3.5-5.2 chloride, serum [...] 0.40 mg/dL 0.00-1.00 sodium, serum 139 mmol/L 795-876 8343/01/21 potassium, serum 3.4 mmol/L 3.5-5.2 chloride, serum [...] 0.40 mg/dL 0.00-1.00 sodium, serum 138 mmol/L 774-649 0739/01/28 potassium, serum 3.2 mmol/L 3.5-5.2 chloride, serum [...] 0.40 mg/dL 0.00-1.00 sodium, serum 140 mmol/L 306-631 1551/02/04 potassium, serum 3.6 mmol/L 3.5-5.2 chloride, serum [...] 0.70 mg/dL 0.00-1.00 sodium, serum 136 mmol/L 828-605 9109/02/11 potassium, serum 3.1 mmol/L 3.5-5.2 chloride, serum [...] 0.50 mg/dL 0.00-1.00 sodium, serum 136 mmol/L 685-329 3873/04/03 sodium, serum 136 mmol/L 934-257 6757/04/03 potassium, serum 3.7 mmol/L 3.5-5.2 chloride, serum [...] 0.40 mg/dL 0.00-1.00 sodium, serum 139 mmol/L 007-498 9442/02/18 potassium, serum 3.6 mmol/L 3.5-5.2 chloride, serum [...] 0.50 mg/dL 0.00-1.00 sodium, serum 138 mmol/L 020-682 2207/08/14 potassium, serum 4.0 mmol/L 3.5-5.2 chloride, serum [...] 11 .6-14.8 platelet count 193 10^3/MM^3 10*3/mm3 843-911 5630/04/03 leukocyte count, blood 5.6 10^3/MM^3 10*3/mm3 4.6-10.2 [...] 11 .6-14.8 platelet count 246 10^3/MM^3 10*3/mm3 344-861 6912/10/01 erythrocyte (RBC) count 3.96 10^6/MM^3 10*6/mm3 4.04-5.4 8 lymphocytes as percent of blood leukocytes 14.1 % 20.5-51.1 monocytes as percent of blood leukocytes 6.1 % 1.7-9.3 neutrophils as percent of blood leukocytes 76.0 % 42.2-75.2 leukocyte count, blood 8.3 10^3/MM^3 10*3/mm3 4.6-10.2 red blood cell distribution width 18.2 % 11 .6-14.8 platelet count 378 10^3/MM^3 10*3/mm3 144-003 5407/02/18 leukocyte count, blood 4.0 10^3/MM^3 10*3/mm3 4.6-10.2 [...] 11 .6-14.8 platelet count 134 10^3/MM^3 10*3/mm3 138-131 3229/02/11 leukocyte count, blood 4.8 10^3/MM^3 10*3/mm3 4.6-10.2 [...] 11 .6-14.8 platelet count 102 10^3/MM^3 10*3/mm3 188-112 1069/02/04 leukocyte count, blood 3.6 10^3/MM^3 10*3/mm3 4.6-10.2 [...] 11 .6-14.8 platelet count 70 10^3/MM^3 10*3/mm3 559-646 3109/01/28 leukocyte count, blood 4.2 10^3/MM^3 10*3/mm3 4.6-10.2 [...] 11 .6-14.8 platelet count 73 10^3/MM^3 10*3/mm3 605-790 7602/01/03 leukocyte count, blood 8.1 10^3/MM^3 10*3/mm3 4.6-10.2 [...] 11 .6-14.8 platelet count 96 10^3/MM^3 10*3/mm3 764-970 9783/01/21 leukocyte count, blood 4.9 10^3/MM^3 10*3/mm3 4.6-10.2 [...] .6-14.8 platelet count 38 recounted 10^3/mm^3 10*3/mm3 591-246 1554/10/17 neutrophils as percent of blood leukocytes 64.3 % 42.2-75.2 monocytes as percent of blood leukocytes 10.4 % 1.7-9.3 lymphocytes as percent of blood leukocytes 21.3 % 20.5-51.1 erythrocyte (RBC) count 4.18 10^6/MM^3 10*6/mm3 4.04-5.4 8 hemoglobin, blood 12.0 g/dL 12.0-16.0 neutrophils as percent of blood [...] 11 .6-14.8 platelet count 232 10^3/MM^3 10*3/mm3 351-885 3019/10/01 mean corpuscular hemoglobin concentration, RBC 32.6 G/DL [...] 11 .6-14.8 platelet count 229 10^3/MM^3 10*3/mm3 267-794 9290/01/06 leukocyte count, blood 7.6 10^3/MM^3 10*3/mm3 4.6-10.2 [...] 11 .6-14.8 platelet count 132 10^3/MM^3 10*3/mm3 077-405 9506/12/03 leukocyte count, blood 8.2 10^3/MM^3 10*3/mm3 4.6-10.2 [...] Diff/Morphology - Chemistry sodium, serum 141 mmol/L 195-723 3283/11/25 potassium, serum 3.9 mmol/L 3.5-5.2 chloride, serum [...] 0.50 mg/dL 0.00-1.00 sodium, serum 137 mmol/L 802-848 8617/11/12 potassium, serum 3.2 mmol/L 3.5-5.2 chloride, serum [...] 0.40 mg/dL 0.00-1.00 sodium, serum 140 mmol/L 780-947 8541/12/17 potassium, serum 3.3 mmol/L 3.5-5.2 chloride, serum [...] 0.40 mg/dL 0.00-1.00 sodium, serum 138 mmol/L 282-166 4847/12/24 potassium, serum 3.7 mmol/L 3.5-5.2 chloride, serum [...] 0.50 mg/dL 0.00-1.00 sodium, serum 135 mmol/L 982-533 6810/10/22 potassium, serum 3.0 mmol/L 3.5-5.2 chloride, serum [...] 0.50 mg/dL 0.00-1.00 sodium, serum 128 mmol/L 231-460 6304/10/29 potassium, serum 2.6 mmol/L 3.5-5.2 chloride, serum [...] 0.50 mg/dL 0.00-1.00 sodium, serum 138 mmol/L 673-037 7549/11/05 potassium, serum 3.9 mmol/L 3.5-5.2 chloride, serum [...] 0.40 mg/dL 0.00-1.00 sodium, serum 141 mmol/L 872-839 7561/01/14 potassium, serum 3.9 mmol/L 3.5-5.2 chloride, serum [...] 11 .6-14.8 platelet count 22 10^3/MM^3 10*3/mm3 573-208 8613/11/12 leukocyte count, blood 12.1 10^3/MM^3 10*3/mm3 4.6-10.2 neutrophils as percent of blood leukocytes 86.3 % 42.2-75.2 monocytes as percent of blood leukocytes 5.2 % 1.7-9.3 lymphocytes as percent of blood leukocytes 6.4 % 20.5-51.1 erythrocyte (RBC) count 3.89 10^6/MM^3 10*6/mm3 4.04-5.4 8 hemoglobin, blood 11.2 g/dL 12.0-16.0 leukocyte count, blood 26.3 10^3/MM^3 10*3/mm3 4.6-10.2 neutrophils as percent of blood leukocytes 76.8 % 42.2-75.2 monocytes as percent of blood leukocytes 13.4 % 1.7-9.3 lymphocytes as percent of blood leukocytes 7.0 % 20.5-51.1 erythrocyte (RBC) count 4.32 10^6/MM^3 10*6/mm3 4.04-5.4 8 hematocrit, blood 34.3 % 36.0-46.0 mean corpuscular volume, RBC 88 fL 80-97 mean corpuscular hemoglobin, RBC 28.8 pg 27. 0-31.2 mean corpuscular hemoglobin concentration, RBC 32.6 G/DL % 31.8-35.4 red blood cell distribution width 18.2 % 11 .6-14.8 platelet count 157 10^3/MM^3 10*3/mm3 540-564 5254/11/05 leukocyte count, blood 16.4 10^3/MM^3 10*3/mm3 4.6-10.2 [...] 11 .6-14.8 platelet count 215 10^3/MM^3 10*3/mm3 033-868 9705/10/22 leukocyte count, blood 14.7 10^3/MM^3 10*3/mm3 4.6-10.2 hemoglobin, blood 12.3 g/dL 12.0-16.0 hematocrit, blood 37.8 % 36.0-46.0 mean corpuscular volume, RBC 88 fL 80-97 mean corpuscular hemoglobin, RBC 28.5 pg 27. 0-31.2 mean corpuscular hemoglobin concentration, RBC 32.6 G/DL % 31.8-35.4 red blood cell distribution width 17.3 % 11 .6-14.8 platelet count 268 10^3/MM^3 10*3/mm3 404-229 4260/10/22 neutrophils as percent of blood leukocytes 80.9 [...] 11 .6-14.8 platelet count 428 10^3/MM^3 10*3/mm3 603-931 9807/12/24 leukocyte count, blood 14.0 10^3/MM^3 10*3/mm3 4.6-10.2 [...] 11 .6-14.8 platelet count 66 10^3/MM^3 10*3/mm3 800-820 1230/11/25 leukocyte count, blood 21.1 10^3/MM^3 10*3/mm3 4.6-10.2 [...] 11 .6-14.8 platelet count 46 10^3/MM^3 10*3/mm3 027-949 8983/12/17 leukocyte count, blood 18.6 10^3/MM^3 10*3/mm3 4.6-10.2 [...] - Chem istry sodium, serum 141 mmol/L 550-689 0808/11/19 potassium, serum 3.9 mmol/L 3.5-5.2 chloride, serum [...] 0.50 mg/dL 0.00-1.00 sodium, serum 142 mmol/L 271-305 9310/12/10 potassium, serum 3.9 mmol/L 3.5-5.2 chloride, serum [...] Diff/Morphology - Chemistry sodium, serum 142 mmol/L 417-519 3208/12/31 potassium, serum 3.6 mmol/L 3.5-5.2 chloride, serum [...] Panel - Chemistry cholesterol, serum 209 mg/dL 222-832 0793/09/11 triglyceride, serum, fasting 113 mg/dL 30-200 HDL cholesterol, serum 50 mg/dL 32-96 LDL cholesterol, serum 136 mg/dL 0-130 Encounters Code Encounter Date Provider Facility CPT-05579 Level 4 Est. Patient 20:04:51 CDT Hope cohn MD PhD [facility] CPT-60324 Level 3 New Patient 01:46:11 STRAP SETTER Hope landers MD PhD [facility] Procedures Code Procedure Name Date Entry Date Standard Desc ription CPT-51314 Bone Density 08:54:40 CDT CPT-OV Office Visit 15:37:02 CDT CPT-62405 Postop F/U Visit 15:47:49 CDT CPT-42141 Postop F/U Visit 15:21:02 CDT CPT-TCMH Transitional Care Mgmt-High 07:52:27 CDT 20 20/06/01 CPT-44219 Venipuncture Draw Fee 13:51:18 CDT CPT-60286 Venipuncture Draw Fee 10:14:55 STRAP SETTER CPT-15881 Venipuncture Draw Fee 13:39:45 STRAP SETTER CPT-OV Office Visit 15:11:22 STRAP SETTER CPT-50363 Venipuncture Draw Fee 09:20:49 STRAP SETTER CPT-05338 Venipuncture Draw Fee 16:52:15 STRAP SETTER CPT-64147 Venipuncture Draw Fee 10:37:24 STRAP SETTER CPT-47610 Venipuncture Draw Fee 08:21:21 STRAP SETTER CPT-88755 Venipuncture Draw Fee 08:30:20 STRAP SETTER CPT-71418 Venipuncture Draw Fee 14:53:21 STRAP SETTER CPT-68027 Venipuncture Draw Fee 09:40:56 STRAP SETTER CPT-30694 Venipuncture Draw Fee 10:30:47 STRAP SETTER CPT-59928 Venipuncture Draw Fee 10:46:17 STRAP SETTER CPT-25912 Venipuncture Draw Fee 11:12:45 STRAP SETTER CPT-58807 Venipuncture Draw Fee 09:53:33 STRAP SETTER CPT-74998 Venipuncture Draw Fee 11:53:51 STRAP SETTER CPT-59196 Venipuncture Draw Fee 10:33:50 STRAP SETTER CPT-88557 Venipuncture Draw Fee 10:05:01 STRAP SETTER CPT-48615 Venipuncture Draw Fee 14:32:52 STRAP SETTER CPT-12278 Venipuncture Draw Fee 09:46:13 STRAP SETTER CPT-66332 Venipuncture Draw Fee 11:34:27 STRAP SETTER CPT-84430 Venipuncture Draw Fee 13:17:16 STRAP SETTER CPT-91487 Venipuncture Draw Fee 12:05:39 CDT CPT-13204 Venipuncture Draw Fee 12:49:12 CDT CPT-06876 Venipuncture Draw Fee 12:37:18 CDT CPT-15705 Venipuncture Draw Fee 10:57:11 CDT CPT-00513 Venipuncture Draw Fee 13:47:40 CDT CPT-97039 Venipuncture Draw Fee 10:02:17 CDT CPT-04034 TB Tubersol 17:32:32 CDT CPT-OV Office Visit 16:21:53 CDT CPT-OV Office Visit 15:49:22 CDT CPT-OV Office Visit 17:16:31 CDT CPT-OV Office Visit 10:43:31 CDT
--- OUTSIDE RECORDS SUMMARY | 2019-02-09 13:29 | XMS REPORT | Clinical Summary ---
Author Author Renaldo, Florecita Munoz Organization [facility] Address Unknown Phone Allergies, Adverse Reactions, Alerts Allergy Name Reaction Description Start Date Severity Status Pr ovider No Known Allergies Fay Lexus Conditions or Problems Problem Name Problem Code Onset Date Status Entry Date Provider Comment Standard Description Annotate HYPERLIPIDEMIA 272.4 Active Kina Jsohua APRN Other and unspecified hyperlipidemia HYPERTENSION 401.9 [...] MG CAPS 1 q d FLUOXETINE HCL 31329 164943 No Longer Active Hope Benavidez MD PhD Active INNOPRAN XL 120 MG [id number] Take one by mouth daily PROPRANOLOL HCL SR BEADS 11282425932 Active Hope Benavidez MD PhD Active POTASSIUM CHLORIDE 20 MEQ PACK by mouth twice a day prn POTASSIUM CHLORIDE 11023847897 Active Adam Yates MD Activ e CYCLOBENZAPRINE HCL 10 MG TABS 1 tablet by mouth three times daily as needed for headaches CYCLOBENZAPRINE HCL 28983875837 Active Selena Yates MD Active SIMVASTATIN 40 MG TABS 1 qd SIMVASTATIN 004 56047495 No Longer Active Adam Yates MD Active MELOXICAM 15 MG TABS 1 qd MELOXICAM 8103434 8935 No Longer Active Adam Yates MD Active ATENOLOL 50 MG TABS 1/2 tab q other day ATENOLOL 23426836280 Active Hope Benavidez MD PhD Active OMEPRAZOLE 20 MG CPDR 1 tablet by mouth daily for GERD OMEPRAZOLE 24556195611 Active Hope Benavidez MD PhD Active IMODIUM A-D 2 MG TABS 2 onset at diarrhea and prn. LOPERAMIDE HCL 34587026238 Active Hope Benavidez MD PhD Active PHENADOZ 25 MG SUPP 1 every 4 hrs. PRN PROMETHAZINE HCL 83860948279 Active Hope Benavidez MD PhD Active PROMETHAZINE HCL 25 MG TABS 1 Q. 4 hr. PRN PROMETH AZINE HCL 07614887929 Active Hope Benavidez MD PhD Active EXCEDRIN EXTRA STRENGTH 250-250-65 MG TABS 1-2 q6h PRN headache 201 04/16/21 [id number] 61221881824 Active Hope Benavidez MD PhD Active ZOFRAN 4 MG TABS 1 q 6 hr prn ONDANSETRON HCL 2159741 7002 Active Fay Alberts Active FLAGYL 500 MG TABS 1 qid METRONIDAZOLE 14829 658664 No Longer Active Adam Yates MD Active LEVAQUIN 750 MG TABS 1 qd LEVOFLOXACIN 5486 9122497 No Longer Active Adam Yates MD Active DYAZIDE 37.5-25 MG CAPS 1 qd TRIAMTERENE-HCTZ 5886 6302891 Active Hope Benavidez MD PhD Active ADULT ASPIRIN LOW STRENGTH 81 MG TBDP 1 qd A SPIRIN 09374657189 Active Hope Benavidez MD PhD Active LEVAQUIN 750 MG TABS 1 qd LEVAQUIN 750 MG T ABS 437098 LEVOFLOXACIN Inactive FLAGYL 500 MG TABS 1 qid FLAGYL 500 MG TABS 079259 METRONIDAZOLE Inactive MELOXICAM 15 MG TABS 1 qd MELOXICAM 15 MG T ABS 903716 MELOXICAM Inactive SIMVASTATIN 40 MG TABS 1 qd SIMVASTATIN 40 MG TABS 107276 SIMVASTATIN Inactive PROZAC 20 MG CAPS 1 [...] - Chem istry sodium, serum 137 mmol/L 838-975 9601/11/01 potassium, serum 3.7 mmol/L 3.5-5.2 chloride, serum 100 mmol/L 98-107 carbon dioxide, venous blood 31.8 mmol/L 21.0-32 .0 blood glucose 98 mg/dL 65-110 calcium, serum 8.6 mg/dL 8.5-10.1 urea nitrogen, blood 23 mg/dL 7-18 creatinine, serum 1.50 mg/dL 0.60-1.30 sodium, serum 136 mmol/L 844-797 2569/05/02 potassium, serum 4.1 mmol/L 3.5-5.2 chloride, serum [...] 11 .6-14.8 platelet count 133 10^3/MM^3 10*3/mm3 754-159 1778/01/17 leukocyte count, blood 3.1 10^3/MM^3 10*3/mm3 4.6-10.2 [...] 11 .6-14.8 platelet count 22 10^3/MM^3 10*3/mm3 116-992 0877/11/19 leukocyte count, blood 10.4 10^3/MM^3 10*3/mm3 4.6-10.2 [...] Verified By Repeat Analysis 10^3/mm ^3 10*3/mm3 959-512 7722/12/10 leukocyte count, blood 7.8 10^3/MM^3 10*3/mm3 4.6-10.2 [...] Panel - Chemistry sodium, serum 139 mmol/L 175-763 5143/12/03 potassium, serum 3.7 mmol/L 3.5-5.2 chloride, serum [...] 0.40 mg/dL 0.00-1.00 sodium, serum 137 mmol/L 627-585 1223/10/01 potassium, serum 3.5 mmol/L 3.5-5.2 chloride, serum [...] 0.60 mg/dL 0.00-1.00 sodium, serum 136 mmol/L 845-178 1159/10/08 potassium, serum 3.1 mmol/L 3.5-5.2 chloride, serum [...] 0.60 mg/dL 0.00-1.00 sodium, serum 139 mmol/L 563-189 0670/10/17 potassium, serum 3.1 mmol/L 3.5-5.2 chloride, serum [...] 0.30 mg/dL 0.00-1.00 sodium, serum 139 mmol/L 640-460 6938/01/21 potassium, serum 3.4 mmol/L 3.5-5.2 chloride, serum [...] 0.40 mg/dL 0.00-1.00 sodium, serum 138 mmol/L 940-591 2086/01/28 potassium, serum 3.2 mmol/L 3.5-5.2 chloride, serum [...] 0.40 mg/dL 0.00-1.00 sodium, serum 140 mmol/L 498-873 1454/02/04 potassium, serum 3.6 mmol/L 3.5-5.2 chloride, serum [...] 0.70 mg/dL 0.00-1.00 sodium, serum 142 mmol/L 646-806 3922/01/03 potassium, serum 3.4 mmol/L 3.5-5.2 chloride, serum [...] 0.50 mg/dL 0.00-1.00 sodium, serum 140 mmol/L 045-050 4522/01/06 potassium, serum 3.4 mmol/L 3.5-5.2 chloride, serum [...] 0.40 mg/dL 0.00-1.00 sodium, serum 136 mmol/L 194-485 7342/04/03 potassium, serum 3.7 mmol/L 3.5-5.2 chloride, serum [...] 0.40 mg/dL 0.00-1.00 sodium, serum 136 mmol/L 111-770 7301/02/11 potassium, serum 3.1 mmol/L 3.5-5.2 chloride, serum [...] 0.50 mg/dL 0.00-1.00 sodium, serum 139 mmol/L 118-855 3577/02/18 potassium, serum 3.6 mmol/L 3.5-5.2 chloride, serum [...] 11 .6-14.8 platelet count 246 10^3/MM^3 10*3/mm3 897-057 3385/02/18 leukocyte count, blood 4.0 10^3/MM^3 10*3/mm3 4.6-10.2 [...] 11 .6-14.8 platelet count 134 10^3/MM^3 10*3/mm3 012-077 6497/01/03 leukocyte count, blood 8.1 10^3/MM^3 10*3/mm3 4.6-10.2 [...] 11 .6-14.8 platelet count 96 10^3/MM^3 10*3/mm3 488-840 9692/01/06 leukocyte count, blood 7.6 10^3/MM^3 10*3/mm3 4.6-10.2 [...] 11 .6-14.8 platelet count 132 10^3/MM^3 10*3/mm3 530-768 3199/02/11 leukocyte count, blood 4.8 10^3/MM^3 10*3/mm3 4.6-10.2 [...] 11 .6-14.8 platelet count 102 10^3/MM^3 10*3/mm3 672-957 3065/02/04 leukocyte count, blood 3.6 10^3/MM^3 10*3/mm3 4.6-10.2 [...] 11 .6-14.8 platelet count 70 10^3/MM^3 10*3/mm3 182-422 2922/01/28 leukocyte count, blood 4.2 10^3/MM^3 10*3/mm3 4.6-10.2 [...] 11 .6-14.8 platelet count 73 10^3/MM^3 10*3/mm3 992-571 4356/01/21 leukocyte count, blood 4.9 10^3/MM^3 10*3/mm3 4.6-10.2 [...] .6-14.8 platelet count 38 recounted 10^3/mm^3 10*3/mm3 335-729 4502/10/08 leukocyte count, blood 2.9 10^3/MM^3 10*3/mm3 4.6-10.2 [...] 11 .6-14.8 platelet count 229 10^3/MM^3 10*3/mm3 825-154 5574/10/17 leukocyte count, blood 12.0 10^3/MM^3 10*3/mm3 4.6-10.2 [...] 11 .6-14.8 platelet count 232 10^3/MM^3 10*3/mm3 952-756 6099/10/01 leukocyte count, blood 8.3 10^3/MM^3 10*3/mm3 4.6-10.2 [...] 11 .6-14.8 platelet count 378 10^3/MM^3 10*3/mm3 815-093 8056/12/03 leukocyte count, blood 8.2 10^3/MM^3 10*3/mm3 4.6-10.2 [...] Diff/Morphology - Chemistry sodium, serum 141 mmol/L 456-613 9517/11/25 potassium, serum 3.9 mmol/L 3.5-5.2 chloride, serum [...] 0.50 mg/dL 0.00-1.00 sodium, serum 137 mmol/L 516-881 4749/11/12 potassium, serum 3.2 mmol/L 3.5-5.2 chloride, serum [...] 0.40 mg/dL 0.00-1.00 sodium, serum 140 mmol/L 454-964 7156/12/17 potassium, serum 3.3 mmol/L 3.5-5.2 chloride, serum [...] 0.40 mg/dL 0.00-1.00 sodium, serum 138 mmol/L 025-728 4760/12/24 potassium, serum 3.7 mmol/L 3.5-5.2 chloride, serum [...] 0.50 mg/dL 0.00-1.00 sodium, serum 138 mmol/L 112-759 6829/11/05 potassium, serum 3.9 mmol/L 3.5-5.2 chloride, serum [...] 0.40 mg/dL 0.00-1.00 sodium, serum 135 mmol/L 876-266 7447/10/22 potassium, serum 3.0 mmol/L 3.5-5.2 chloride, serum [...] 0.50 mg/dL 0.00-1.00 sodium, serum 128 mmol/L 625-967 6925/10/29 potassium, serum 2.6 mmol/L 3.5-5.2 chloride, serum [...] 0.50 mg/dL 0.00-1.00 sodium, serum 141 mmol/L 923-579 0495/01/14 potassium, serum 3.9 mmol/L 3.5-5.2 chloride, serum [...] 11 .6-14.8 platelet count 22 10^3/MM^3 10*3/mm3 537-833 9957/10/22 leukocyte count, blood 14.7 10^3/MM^3 10*3/mm3 4.6-10.2 [...] 11 .6-14.8 platelet count 428 10^3/MM^3 10*3/mm3 877-256 6367/10/29 leukocyte count, blood 26.3 10^3/MM^3 10*3/mm3 4.6-10.2 [...] 11 .6-14.8 platelet count 268 10^3/MM^3 10*3/mm3 964-923 1433/11/12 leukocyte count, blood 12.1 10^3/MM^3 10*3/mm3 4.6-10.2 [...] 11 .6-14.8 platelet count 157 10^3/MM^3 10*3/mm3 821-924 9642/11/05 leukocyte count, blood 16.4 10^3/MM^3 10*3/mm3 4.6-10.2 [...] 11 .6-14.8 platelet count 215 10^3/MM^3 10*3/mm3 281-441 7538/12/24 leukocyte count, blood 14.0 10^3/MM^3 10*3/mm3 4.6-10.2 [...] 11 .6-14.8 platelet count 66 10^3/MM^3 10*3/mm3 451-430 6528/12/17 leukocyte count, blood 18.6 10^3/MM^3 10*3/mm3 4.6-10.2 [...] 11 .6-14.8 platelet count 75 10^3/MM^3 10*3/mm3 979-177 1879/11/25 leukocyte count, blood 21.1 10^3/MM^3 10*3/mm3 4.6-10.2 [...] 11 .6-14.8 platelet count 413 10^3/MM^3 10*3/mm3 635-638 7125/01/16 leukocyte count, blood 3.6 10^3/MM^3 10*3/mm3 4.6-10.2 [...] - Chem istry sodium, serum 141 mmol/L 173-262 4122/11/19 potassium, serum 3.9 mmol/L 3.5-5.2 chloride, serum [...] 0.50 mg/dL 0.00-1.00 sodium, serum 142 mmol/L 278-120 5355/12/10 potassium, serum 3.9 mmol/L 3.5-5.2 chloride, serum [...] Diff/Morphology - Chemistry sodium, serum 142 mmol/L 867-783 6937/12/31 potassium, serum 3.6 mmol/L 3.5-5.2 chloride, serum [...] 3.5-5.2 Encounters Code Encounter Date Provider Facility CPT-16521 Level 3 New Patient 01:46:11 SALES OUTFITTER Hope landers MD PhD [facility] Procedures Code Procedure Name Date Entry Date Standard Desc ription CPT-34757 Postop F/U Visit 15:21:02 CDT CPT-TCMH Transitional Care Mgmt-High 07:52:27 CDT 20 20/06/01 CPT-13995 Venipuncture Draw Fee 13:51:18 CDT CPT-54020 Venipuncture Draw Fee 10:14:55 SALES OUTFITTER CPT-82912 Venipuncture Draw Fee 13:39:45 SALES OUTFITTER CPT-OV Office Visit 15:11:22 SALES OUTFITTER CPT-80741 Venipuncture Draw Fee 09:20:49 SALES OUTFITTER CPT-21571 Venipuncture Draw Fee 16:52:15 SALES OUTFITTER CPT-79799 Venipuncture Draw Fee 10:37:24 SALES OUTFITTER CPT-06295 Venipuncture Draw Fee 08:21:21 SALES OUTFITTER CPT-97030 Venipuncture Draw Fee 08:30:20 SALES OUTFITTER CPT-29373 Venipuncture Draw Fee 14:53:21 SALES OUTFITTER CPT-52263 Venipuncture Draw Fee 09:40:56 SALES OUTFITTER CPT-23130 Venipuncture Draw Fee 10:30:47 SALES OUTFITTER CPT-18346 Venipuncture Draw Fee 10:46:17 SALES OUTFITTER CPT-07058 Venipuncture Draw Fee 11:12:45 SALES OUTFITTER CPT-43141 Venipuncture Draw Fee 09:53:33 SALES OUTFITTER CPT-09668 Venipuncture Draw Fee 11:53:51 SALES OUTFITTER CPT-30512 Venipuncture Draw Fee 10:33:50 SALES OUTFITTER CPT-06078 Venipuncture Draw Fee 10:05:01 SALES OUTFITTER CPT-38005 Venipuncture Draw Fee 14:32:52 SALES OUTFITTER CPT-90424 Venipuncture Draw Fee 09:46:13 SALES OUTFITTER CPT-88841 Venipuncture Draw Fee 11:34:27 SALES OUTFITTER CPT-91069 Venipuncture Draw Fee 13:17:16 SALES OUTFITTER CPT-76308 Venipuncture Draw Fee 12:05:39 CDT CPT-22348 Venipuncture Draw Fee 12:49:12 CDT CPT-39231 Venipuncture Draw Fee 12:37:18 CDT CPT-03217 Venipuncture Draw Fee 10:57:11 CDT CPT-24174 Venipuncture Draw Fee 13:47:40 CDT CPT-42939 Venipuncture Draw Fee 10:02:17 CDT CPT-53043 TB Tubersol 17:32:32 CDT CPT-OV Office Visit 16:21:53 CDT CPT-OV Office Visit 15:49:22 CDT CPT-OV Office Visit 17:16:31 CDT CPT-OV Office Visit 10:43:31 CDT
--- OUTSIDE RECORDS SUMMARY | 2019-02-09 13:30 | XMS REPORT | Clinical Summary ---
Author Author Renaldo, Florecita Munoz Organization [facility] Address Unknown Phone Allergies, Adverse Reactions, [...] 1 tab 3x aday M AGNESIUM GLUCONATE 97857081829 Active Adam Yates MD Active PROZAC 20 MG CAPS 1 q d FLUOXETINE HCL 55556 722197 No Longer Active Hope Benavidez MD PhD Active INNOPRAN XL 120 MG [id number] Take one by mouth daily PROPRANOLOL HCL SR BEADS 18598503606 Active Hope Benavidez MD PhD Active POTASSIUM CHLORIDE 20 MEQ PACK by mouth twice a day prn POTASSIUM CHLORIDE 55125212537 Active Adam Yates MD Activ e CYCLOBENZAPRINE HCL 10 MG TABS 1 tablet by mouth three times daily as needed for headaches CYCLOBENZAPRINE HCL 75471369196 Active Selena Yates MD Active SIMVASTATIN 40 MG TABS 1 qd SIMVASTATIN 004 60580652 No Longer Active Adam Yates MD Active MELOXICAM 15 MG TABS 1 qd MELOXICAM 3906009 1115 No Longer Active Adam Yates MD Active ATENOLOL 50 MG TABS 1/2 tab q other day ATENOLOL 93877447996 Active Hope Benavidez MD PhD Active OMEPRAZOLE 20 MG CPDR 1 tablet by mouth daily for GERD OMEPRAZOLE 70675620034 Active Hope Benavidez MD PhD Active IMODIUM A-D 2 MG TABS 2 onset at diarrhea and prn. LOPERAMIDE HCL 66553075751 Active Hope Benavidez MD PhD Active PHENADOZ 25 MG SUPP 1 every 4 hrs. PRN PROMETHAZINE HCL 10407596430 Active Hope Benavidez MD PhD Active PROMETHAZINE HCL 25 MG TABS 1 Q. 4 hr. PRN PROMETH AZINE HCL 52099578143 Active Hope Benavidez MD PhD Active EXCEDRIN EXTRA STRENGTH 250-250-65 MG TABS 1-2 q6h PRN headache 201 04/16/21 [id number] 34590552619 Active Hope Benavidez MD PhD Active ZOFRAN 4 MG TABS 1 q 6 hr prn ONDANSETRON HCL 6388196 7002 Active Fay Alberts Active FLAGYL 500 MG TABS 1 qid METRONIDAZOLE 86488 562229 No Longer Active Adam Yates MD Active LEVAQUIN 750 MG TABS 1 qd LEVOFLOXACIN 5486 7014024 No Longer Active Adam Yates MD Active DYAZIDE 37.5-25 MG CAPS 1 qd TRIAMTERENE-HCTZ 5886 1148118 Active Hope Benavidez MD PhD Active ADULT ASPIRIN LOW STRENGTH 81 MG TBDP 1 qd A SPIRIN 74640789402 Active Hope Benavidez MD PhD Active LEVAQUIN 750 MG TABS 1 qd LEVAQUIN 750 MG T ABS 194048 LEVOFLOXACIN Inactive FLAGYL 500 MG TABS 1 qid FLAGYL 500 MG TABS 808363 METRONIDAZOLE Inactive MELOXICAM 15 MG TABS 1 qd MELOXICAM 15 MG T ABS 221744 MELOXICAM Inactive SIMVASTATIN 40 MG TABS 1 qd SIMVASTATIN 40 MG TABS 963878 SIMVASTATIN Inactive PROZAC 20 MG CAPS 1 [...] - Chem istry sodium, serum 136 mmol/L 134-231 4837/05/02 potassium, serum 4.1 mmol/L 3.5-5.2 chloride, serum 99 mmol/L 98-107 carbon dioxide, venous blood 30.7 mmol/L 21.0-32 .0 blood glucose 79 mg/dL 65-110 calcium, serum 8.7 mg/dL 8.5-10.1 urea nitrogen, blood 11 mg/dL 7-18 creatinine, serum 1.10 mg/dL 0.60-1.30 sodium, serum 137 mmol/L 574-821 5893/11/01 potassium, serum 3.7 mmol/L 3.5-5.2 chloride, serum [...] 11 .6-14.8 platelet count 133 10^3/MM^3 10*3/mm3 763-540 3316/01/17 leukocyte count, blood 3.1 10^3/MM^3 10*3/mm3 4.6-10.2 [...] 11 .6-14.8 platelet count 22 10^3/MM^3 10*3/mm3 733-592 4445/11/19 leukocyte count, blood 10.4 10^3/MM^3 10*3/mm3 4.6-10.2 [...] Verified By Repeat Analysis 10^3/mm ^3 10*3/mm3 998-857 1342/12/10 leukocyte count, blood 7.8 10^3/MM^3 10*3/mm3 4.6-10.2 [...] Panel - Chemistry sodium, serum 139 mmol/L 587-547 7686/12/03 potassium, serum 3.7 mmol/L 3.5-5.2 chloride, serum [...] 0.40 mg/dL 0.00-1.00 sodium, serum 137 mmol/L 651-105 3343/10/01 potassium, serum 3.5 mmol/L 3.5-5.2 chloride, serum [...] 0.60 mg/dL 0.00-1.00 sodium, serum 139 mmol/L 695-870 5563/10/17 potassium, serum 3.1 mmol/L 3.5-5.2 chloride, serum [...] 0.30 mg/dL 0.00-1.00 sodium, serum 142 mmol/L 384-705 0757/01/03 potassium, serum 3.4 mmol/L 3.5-5.2 chloride, serum [...] 0.50 mg/dL 0.00-1.00 sodium, serum 139 mmol/L 135-839 0103/01/21 potassium, serum 3.4 mmol/L 3.5-5.2 chloride, serum [...] 0.40 mg/dL 0.00-1.00 sodium, serum 138 mmol/L 325-727 2576/01/28 potassium, serum 3.2 mmol/L 3.5-5.2 chloride, serum [...] 0.40 mg/dL 0.00-1.00 sodium, serum 140 mmol/L 248-334 1648/01/06 potassium, serum 3.4 mmol/L 3.5-5.2 chloride, serum [...] 0.40 mg/dL 0.00-1.00 sodium, serum 136 mmol/L 441-501 4778/02/04 sodium, serum 140 mmol/L 190-364 8452/02/04 potassium, serum 3.6 mmol/L 3.5-5.2 chloride, serum [...] 0.70 mg/dL 0.00-1.00 sodium, serum 136 mmol/L 400-807 4636/04/03 potassium, serum 3.7 mmol/L 3.5-5.2 chloride, serum [...] 0.40 mg/dL 0.00-1.00 sodium, serum 136 mmol/L 805-721 3564/02/11 potassium, serum 3.1 mmol/L 3.5-5.2 chloride, serum [...] 0.50 mg/dL 0.00-1.00 sodium, serum 139 mmol/L 690-158 6416/02/18 potassium, serum 3.6 mmol/L 3.5-5.2 chloride, serum [...] 11 .6-14.8 platelet count 246 10^3/MM^3 10*3/mm3 623-988 9004/02/18 leukocyte count, blood 4.0 10^3/MM^3 10*3/mm3 4.6-10.2 [...] 11 .6-14.8 platelet count 134 10^3/MM^3 10*3/mm3 279-696 6878/10/01 red blood cell distribution width 18.2 % 11 .6-14.8 platelet count 378 10^3/MM^3 10*3/mm3 242-172 6499/02/11 leukocyte count, blood 4.8 10^3/MM^3 10*3/mm3 4.6-10.2 [...] 11 .6-14.8 platelet count 102 10^3/MM^3 10*3/mm3 888-636 8964/01/28 neutrophils as percent of blood leukocytes 59.8 [...] 11 .6-14.8 platelet count 70 10^3/MM^3 10*3/mm3 513-761 6968/01/21 erythrocyte (RBC) count 2.40 10^6/MM^3 10*6/mm3 4.04-5.4 [...] 11 .6-14.8 platelet count 73 10^3/MM^3 10*3/mm3 207-698 4782/01/06 leukocyte count, blood 7.6 10^3/MM^3 10*3/mm3 4.6-10.2 [...] 11 .6-14.8 platelet count 132 10^3/MM^3 10*3/mm3 644-360 7345/01/21 hemoglobin, blood 8.2 g/dL 12.0-16.0 hematocrit, blood 25.1 % 36.0-46.0 mean corpuscular volume, RBC 105 fL 80-97 mean corpuscular hemoglobin, RBC 34.4 pg 27. 0-31.2 mean corpuscular hemoglobin concentration, RBC 32.9 G/DL % 31.8-35.4 red blood cell distribution width 20.8 % 11 .6-14.8 platelet count 38 recounted 10^3/mm^3 10*3/mm3 643-369 4882/10/08 neutrophils as percent of blood leukocytes 57.9 [...] 11 .6-14.8 platelet count 232 10^3/MM^3 10*3/mm3 745-798 3922/10/01 mean corpuscular hemoglobin concentration, RBC 32.6 G/DL [...] 11 .6-14.8 platelet count 229 10^3/MM^3 10*3/mm3 102-569 8715/10/17 neutrophils as percent of blood leukocytes 64.3 [...] 11 .6-14.8 platelet count 98 10^3/MM^3 10*3/mm3 013-195 8384/01/03 leukocyte count, blood 8.1 10^3/MM^3 10*3/mm3 4.6-10.2 [...] Diff/Morphology - Chemistry sodium, serum 140 mmol/L 402-641 3088/12/17 potassium, serum 3.3 mmol/L 3.5-5.2 chloride, serum [...] 0.40 mg/dL 0.00-1.00 sodium, serum 138 mmol/L 108-648 1226/12/24 potassium, serum 3.7 mmol/L 3.5-5.2 chloride, serum [...] 0.50 mg/dL 0.00-1.00 sodium, serum 141 mmol/L 226-137 1004/11/25 potassium, serum 3.9 mmol/L 3.5-5.2 chloride, serum [...] 0.50 mg/dL 0.00-1.00 sodium, serum 138 mmol/L 391-177 0356/11/05 potassium, serum 3.9 mmol/L 3.5-5.2 chloride, serum [...] 0.40 mg/dL 0.00-1.00 sodium, serum 128 mmol/L 404-424 1825/10/29 potassium, serum 2.6 mmol/L 3.5-5.2 chloride, serum [...] 0.50 mg/dL 0.00-1.00 sodium, serum 137 mmol/L 816-824 0237/11/12 potassium, serum 3.2 mmol/L 3.5-5.2 chloride, serum [...] 0.40 mg/dL 0.00-1.00 sodium, serum 141 mmol/L 179-900 9082/01/14 potassium, serum 3.9 mmol/L 3.5-5.2 chloride, serum [...] 11 .6-14.8 platelet count 22 10^3/MM^3 10*3/mm3 698-112 5738/11/12 leukocyte count, blood 12.1 10^3/MM^3 10*3/mm3 4.6-10.2 [...] 11 .6-14.8 platelet count 157 10^3/MM^3 10*3/mm3 402-840 5489/10/29 leukocyte count, blood 26.3 10^3/MM^3 10*3/mm3 4.6-10.2 [...] 11 .6-14.8 platelet count 268 10^3/MM^3 10*3/mm3 519-764 5152/11/05 leukocyte count, blood 16.4 10^3/MM^3 10*3/mm3 4.6-10.2 [...] 11 .6-14.8 platelet count 215 10^3/MM^3 10*3/mm3 403-193 4054/10/22 leukocyte count, blood 14.7 10^3/MM^3 10*3/mm3 4.6-10.2 [...] 11 .6-14.8 platelet count 428 10^3/MM^3 10*3/mm3 637-824 4938/11/25 leukocyte count, blood 21.1 10^3/MM^3 10*3/mm3 [...] 11 .6-14.8 platelet count 46 10^3/MM^3 10*3/mm3 710-287 7768/12/24 leukocyte count, blood 14.0 10^3/MM^3 10*3/mm3 4.6-10.2 [...] 11 .6-14.8 platelet count 66 10^3/MM^3 10*3/mm3 540-639 5103/12/17 leukocyte count, blood 18.6 10^3/MM^3 10*3/mm3 4.6-10.2 [...] 11 .6-14.8 platelet count 413 10^3/MM^3 10*3/mm3 140-023 8689/01/16 leukocyte count, blood 3.6 10^3/MM^3 10*3/mm3 4.6-10.2 [...] - Chem istry sodium, serum 141 mmol/L 311-689 8007/11/19 potassium, serum 3.9 mmol/L 3.5-5.2 chloride, serum [...] 0.50 mg/dL 0.00-1.00 sodium, serum 142 mmol/L 954-106 5426/12/10 potassium, serum 3.9 mmol/L 3.5-5.2 chloride, serum [...] Diff/Morphology - Chemistry sodium, serum 142 mmol/L 765-141 6414/12/31 potassium, serum 3.6 mmol/L 3.5-5.2 chloride, serum [...] 3.5-5.2 Encounters Code Encounter Date Provider Facility CPT-67782 Level 3 New Patient 01:46:11 CORPORATE RELATIONS DIRECTOR Hope landers MD PhD [facility] Procedures Code Procedure Name Date Entry Date Standard Desc ription CPT-41117 Postop F/U Visit 15:47:49 CDT CPT-26316 Postop F/U Visit 15:21:02 CDT CPT-TCM Transitional Care Mgmt-High 07:52:27 CDT 20 20/06/01 CPT-82396 Venipuncture Draw Fee 13:51:18 CDT CPT-04787 Venipuncture Draw Fee 10:14:55 CORPORATE RELATIONS DIRECTOR CPT-81660 Venipuncture Draw Fee 13:39:45 CORPORATE RELATIONS DIRECTOR CPT-OV Office Visit 15:11:22 CORPORATE RELATIONS DIRECTOR CPT-65858 Venipuncture Draw Fee 09:20:49 CORPORATE RELATIONS DIRECTOR CPT-87099 Venipuncture Draw Fee 16:52:15 CORPORATE RELATIONS DIRECTOR CPT-45891 Venipuncture Draw Fee 10:37:24 CORPORATE RELATIONS DIRECTOR CPT-74366 Venipuncture Draw Fee 08:21:21 CORPORATE RELATIONS DIRECTOR CPT-43478 Venipuncture Draw Fee 08:30:20 CORPORATE RELATIONS DIRECTOR CPT-02026 Venipuncture Draw Fee 14:53:21 CORPORATE RELATIONS DIRECTOR CPT-96730 Venipuncture Draw Fee 09:40:56 CORPORATE RELATIONS DIRECTOR CPT-17831 Venipuncture Draw Fee 10:30:47 CORPORATE RELATIONS DIRECTOR CPT-02144 Venipuncture Draw Fee 10:46:17 CORPORATE RELATIONS DIRECTOR CPT-04100 Venipuncture Draw Fee 11:12:45 CORPORATE RELATIONS DIRECTOR CPT-42573 Venipuncture Draw Fee 09:53:33 CORPORATE RELATIONS DIRECTOR CPT-42510 Venipuncture Draw Fee 11:53:51 CORPORATE RELATIONS DIRECTOR CPT-51092 Venipuncture Draw Fee 10:33:50 CORPORATE RELATIONS DIRECTOR CPT-92282 Venipuncture Draw Fee 10:05:01 CORPORATE RELATIONS DIRECTOR CPT-63006 Venipuncture Draw Fee 14:32:52 CORPORATE RELATIONS DIRECTOR CPT-02052 Venipuncture Draw Fee 09:46:13 CORPORATE RELATIONS DIRECTOR CPT-77311 Venipuncture Draw Fee 11:34:27 CORPORATE RELATIONS DIRECTOR CPT-62582 Venipuncture Draw Fee 13:17:16 CORPORATE RELATIONS DIRECTOR CPT-23683 Venipuncture Draw Fee 12:05:39 CDT CPT-39796 Venipuncture Draw Fee 12:49:12 CDT CPT-50507 Venipuncture Draw Fee 12:37:18 CDT CPT-83988 Venipuncture Draw Fee 10:57:11 CDT CPT-78887 Venipuncture Draw Fee 13:47:40 CDT CPT-15033 Venipuncture Draw Fee 10:02:17 CDT CPT-61257 TB Tubersol 17:32:32 CDT CPT-OV Office Visit 16:21:53 CDT CPT-OV Office Visit 15:49:22 CDT CPT-OV Office Visit 17:16:31 CDT CPT-OV Office Visit 10:43:31 CDT
--- OUTSIDE RECORDS SUMMARY | 2019-02-09 13:31 | XMS REPORT | Clinical Summary ---
Author Author Renaldo, Florecita Mnuoz Organization [facility] Address Unknown Phone Allergies, Adverse Reactions, [...] PAIN, RIGHT LOWER QUADRANT 789.03 Resolved Kina Joshau APRN Abdominal pain, right lower quadrant ADENOCARCINOMA, [...] MG CAPS 1 q d FLUOXETINE HCL 38237 688979 No Longer Active Hope Benavidez MD PhD Active INNOPRAN XL 120 MG [id number] Take one by mouth daily PROPRANOLOL HCL SR BEADS 90354093886 Active Hope Benavidez MD PhD Active POTASSIUM CHLORIDE 20 MEQ PACK by mouth twice a day prn POTASSIUM CHLORIDE 46013276194 Active Adam Yates MD Activ e CYCLOBENZAPRINE HCL 10 MG TABS 1 tablet by mouth three times daily as needed for headaches CYCLOBENZAPRINE HCL 28973912095 Active Selena Yates MD Active SIMVASTATIN 40 MG TABS 1 qd SIMVASTATIN 004 09983216 No Longer Active Adam Yates MD Active MELOXICAM 15 MG TABS 1 qd MELOXICAM 8940107 1430 No Longer Active Adam Yates MD Active ATENOLOL 50 MG TABS 1/2 tab q other day ATENOLOL 99619018076 Active Hope Benavidez MD PhD Active OMEPRAZOLE 20 MG CPDR 1 tablet by mouth daily for GERD OMEPRAZOLE 96112887693 Active Hope Benavidez MD PhD Active IMODIUM A-D 2 MG TABS 2 onset at diarrhea and prn. LOPERAMIDE HCL 57289381703 Active Hope Benavidez MD PhD Active PHENADOZ 25 MG SUPP 1 every 4 hrs. PRN PROMETHAZINE HCL 38268184103 Active Hope Benavidez MD PhD Active PROMETHAZINE HCL 25 MG TABS 1 Q. 4 hr. PRN PROMETH AZINE HCL 58151349522 Active Hope Benavidez MD PhD Active EXCEDRIN EXTRA STRENGTH 250-250-65 MG TABS 1-2 q6h PRN headache 201 04/16/21 [id number] 92398876914 Active Hope Benavidez MD PhD Active ZOFRAN 4 MG TABS 1 q 6 hr prn ONDANSETRON HCL 8460350 7002 Active Fay Alberts Active FLAGYL 500 MG TABS 1 qid METRONIDAZOLE 54615 564509 No Longer Active Adam Yates MD Active LEVAQUIN 750 MG TABS 1 qd LEVOFLOXACIN 5486 0793915 No Longer Active Adam Yates MD Active DYAZIDE 37.5-25 MG CAPS 1 qd TRIAMTERENE-HCTZ 5886 5601083 Active Hope Benavidez MD PhD Active ADULT ASPIRIN LOW STRENGTH 81 MG TBDP 1 qd A SPIRIN 71412614032 Active Hope Benavidez MD PhD Active LEVAQUIN 750 MG TABS 1 qd LEVAQUIN 750 MG T ABS 905595 LEVOFLOXACIN Inactive FLAGYL 500 MG TABS 1 qid FLAGYL 500 MG TABS 832679 METRONIDAZOLE Inactive MELOXICAM 15 MG TABS 1 qd MELOXICAM 15 MG T ABS 741501 MELOXICAM Inactive SIMVASTATIN 40 MG TABS 1 qd SIMVASTATIN 40 MG TABS 748351 SIMVASTATIN Inactive PROZAC 20 MG CAPS 1 [...] - Chem istry sodium, serum 137 mmol/L 887-023 9102/11/01 potassium, serum 3.7 mmol/L 3.5-5.2 chloride, serum 100 mmol/L 98-107 carbon dioxide, venous blood 31.8 mmol/L 21.0-32 .0 blood glucose 98 mg/dL 65-110 calcium, serum 8.6 mg/dL 8.5-10.1 urea nitrogen, blood 23 mg/dL 7-18 creatinine, serum 1.50 mg/dL 0.60-1.30 sodium, serum 136 mmol/L 263-182 6737/05/02 potassium, serum 4.1 mmol/L 3.5-5.2 chloride, serum [...] 142-424 Lab Report: CBC W/ DIFF, BMP, AYNCI, NITZA AEROBIC CX - Chemistry sodium, serum [...] 11 .6-14.8 platelet count 133 10^3/MM^3 10*3/mm3 986-141 7760/01/17 leukocyte count, blood 3.1 10^3/MM^3 10*3/mm3 4.6-10.2 [...] 11 .6-14.8 platelet count 22 10^3/MM^3 10*3/mm3 460-736 1285/11/19 leukocyte count, blood 10.4 10^3/MM^3 10*3/mm3 4.6-10.2 [...] Verified By Repeat Analysis 10^3/mm ^3 10*3/mm3 822-055 7782/12/10 leukocyte count, blood 7.8 10^3/MM^3 10*3/mm3 4.6-10.2 [...] Panel - Chemistry sodium, serum 139 mmol/L 718-420 7033/12/03 potassium, serum 3.7 mmol/L 3.5-5.2 chloride, serum [...] 0.40 mg/dL 0.00-1.00 sodium, serum 137 mmol/L 901-603 5383/10/01 potassium, serum 3.5 mmol/L 3.5-5.2 chloride, serum [...] 0.60 mg/dL 0.00-1.00 sodium, serum 136 mmol/L 139-514 5556/10/08 potassium, serum 3.1 mmol/L 3.5-5.2 chloride, serum [...] 0.60 mg/dL 0.00-1.00 sodium, serum 139 mmol/L 865-215 3650/10/17 potassium, serum 3.1 mmol/L 3.5-5.2 chloride, serum [...] 0.30 mg/dL 0.00-1.00 sodium, serum 139 mmol/L 058-661 8082/01/21 potassium, serum 3.4 mmol/L 3.5-5.2 chloride, serum [...] 0.40 mg/dL 0.00-1.00 sodium, serum 138 mmol/L 877-896 7704/01/28 potassium, serum 3.2 mmol/L 3.5-5.2 chloride, serum [...] 0.40 mg/dL 0.00-1.00 sodium, serum 140 mmol/L 185-928 3830/02/04 potassium, serum 3.6 mmol/L 3.5-5.2 chloride, serum [...] 0.70 mg/dL 0.00-1.00 sodium, serum 142 mmol/L 117-657 1026/01/03 potassium, serum 3.4 mmol/L 3.5-5.2 chloride, serum [...] 0.50 mg/dL 0.00-1.00 sodium, serum 140 mmol/L 316-943 3467/01/06 potassium, serum 3.4 mmol/L 3.5-5.2 chloride, serum [...] 0.40 mg/dL 0.00-1.00 sodium, serum 136 mmol/L 779-685 8262/04/03 potassium, serum 3.7 mmol/L 3.5-5.2 chloride, serum [...] 0.40 mg/dL 0.00-1.00 sodium, serum 136 mmol/L 296-758 6247/02/11 potassium, serum 3.1 mmol/L 3.5-5.2 chloride, serum [...] 0.50 mg/dL 0.00-1.00 sodium, serum 139 mmol/L 288-393 9687/02/18 potassium, serum 3.6 mmol/L 3.5-5.2 chloride, serum [...] 11 .6-14.8 platelet count 246 10^3/MM^3 10*3/mm3 828-735 1307/02/18 leukocyte count, blood 4.0 10^3/MM^3 10*3/mm3 4.6-10.2 [...] 11 .6-14.8 platelet count 134 10^3/MM^3 10*3/mm3 688-394 3902/01/03 leukocyte count, blood 8.1 10^3/MM^3 10*3/mm3 4.6-10.2 [...] 11 .6-14.8 platelet count 96 10^3/MM^3 10*3/mm3 627-800 1588/01/06 leukocyte count, blood 7.6 10^3/MM^3 10*3/mm3 4.6-10.2 [...] 11 .6-14.8 platelet count 132 10^3/MM^3 10*3/mm3 336-485 9781/02/11 leukocyte count, blood 4.8 10^3/MM^3 10*3/mm3 4.6-10.2 [...] 11 .6-14.8 platelet count 102 10^3/MM^3 10*3/mm3 638-691 9253/02/04 leukocyte count, blood 3.6 10^3/MM^3 10*3/mm3 4.6-10.2 [...] 11 .6-14.8 platelet count 70 10^3/MM^3 10*3/mm3 020-443 2927/01/28 leukocyte count, blood 4.2 10^3/MM^3 10*3/mm3 4.6-10.2 [...] 11 .6-14.8 platelet count 73 10^3/MM^3 10*3/mm3 453-692 5527/01/21 leukocyte count, blood 4.9 10^3/MM^3 10*3/mm3 4.6-10.2 [...] .6-14.8 platelet count 38 recounted 10^3/mm^3 10*3/mm3 196-133 2547/10/08 leukocyte count, blood 2.9 10^3/MM^3 10*3/mm3 4.6-10.2 [...] 11 .6-14.8 platelet count 229 10^3/MM^3 10*3/mm3 409-709 3585/10/17 leukocyte count, blood 12.0 10^3/MM^3 10*3/mm3 4.6-10.2 [...] 11 .6-14.8 platelet count 232 10^3/MM^3 10*3/mm3 508-205 7621/10/01 leukocyte count, blood 8.3 10^3/MM^3 10*3/mm3 4.6-10.2 [...] 11 .6-14.8 platelet count 378 10^3/MM^3 10*3/mm3 641-714 7046/12/03 leukocyte count, blood 8.2 10^3/MM^3 10*3/mm3 4.6-10.2 [...] Diff/Morphology - Chemistry sodium, serum 141 mmol/L 948-435 6515/11/25 potassium, serum 3.9 mmol/L 3.5-5.2 chloride, serum [...] 0.50 mg/dL 0.00-1.00 sodium, serum 137 mmol/L 719-459 3851/11/12 potassium, serum 3.2 mmol/L 3.5-5.2 chloride, serum [...] 0.40 mg/dL 0.00-1.00 sodium, serum 140 mmol/L 794-880 6821/12/17 potassium, serum 3.3 mmol/L 3.5-5.2 chloride, serum [...] 0.40 mg/dL 0.00-1.00 sodium, serum 138 mmol/L 204-145 2394/12/24 potassium, serum 3.7 mmol/L 3.5-5.2 chloride, serum [...] 0.50 mg/dL 0.00-1.00 sodium, serum 138 mmol/L 548-918 2909/11/05 potassium, serum 3.9 mmol/L 3.5-5.2 chloride, serum [...] 0.40 mg/dL 0.00-1.00 sodium, serum 135 mmol/L 776-312 2191/10/22 potassium, serum 3.0 mmol/L 3.5-5.2 chloride, serum [...] 0.50 mg/dL 0.00-1.00 sodium, serum 128 mmol/L 499-866 2127/10/29 potassium, serum 2.6 mmol/L 3.5-5.2 chloride, serum [...] 0.50 mg/dL 0.00-1.00 sodium, serum 141 mmol/L 458-796 1403/01/14 potassium, serum 3.9 mmol/L 3.5-5.2 chloride, serum [...] 11 .6-14.8 platelet count 22 10^3/MM^3 10*3/mm3 217-990 4174/10/22 leukocyte count, blood 14.7 10^3/MM^3 10*3/mm3 4.6-10.2 [...] 11 .6-14.8 platelet count 428 10^3/MM^3 10*3/mm3 792-215 2827/10/29 leukocyte count, blood 26.3 10^3/MM^3 10*3/mm3 4.6-10.2 [...] 11 .6-14.8 platelet count 268 10^3/MM^3 10*3/mm3 541-113 3345/11/12 leukocyte count, blood 12.1 10^3/MM^3 10*3/mm3 4.6-10.2 [...] 11 .6-14.8 platelet count 157 10^3/MM^3 10*3/mm3 980-515 7727/11/05 leukocyte count, blood 16.4 10^3/MM^3 10*3/mm3 4.6-10.2 [...] 11 .6-14.8 platelet count 215 10^3/MM^3 10*3/mm3 980-664 1716/12/24 leukocyte count, blood 14.0 10^3/MM^3 10*3/mm3 4.6-10.2 [...] 11 .6-14.8 platelet count 66 10^3/MM^3 10*3/mm3 356-988 4995/12/17 leukocyte count, blood 18.6 10^3/MM^3 10*3/mm3 4.6-10.2 [...] 11 .6-14.8 platelet count 75 10^3/MM^3 10*3/mm3 482-096 2418/11/25 leukocyte count, blood 21.1 10^3/MM^3 10*3/mm3 4.6-10.2 [...] 11 .6-14.8 platelet count 413 10^3/MM^3 10*3/mm3 967-971 6336/01/16 leukocyte count, blood 3.6 10^3/MM^3 10*3/mm3 4.6-10.2 [...] - Chem istry sodium, serum 141 mmol/L 793-462 2579/11/19 potassium, serum 3.9 mmol/L 3.5-5.2 chloride, serum [...] 0.50 mg/dL 0.00-1.00 sodium, serum 142 mmol/L 203-755 2630/12/10 potassium, serum 3.9 mmol/L 3.5-5.2 chloride, serum [...] Diff/Morphology - Chemistry sodium, serum 142 mmol/L 633-621 6286/12/31 potassium, serum 3.6 mmol/L 3.5-5.2 chloride, serum [...] 3.5-5.2 Encounters Code Encounter Date Provider Facility CPT-42386 Level 3 New Patient 01:46:11 BUILDING CERTIFIER Hope landers MD PhD [facility] Procedures Code Procedure Name Date Entry Date Standard Desc ription CPT-64577 Postop F/U Visit 15:21:02 CDT CPT-TCMH Transitional Care Mgmt-High 07:52:27 CDT 20 20/06/01 CPT-60170 Venipuncture Draw Fee 13:51:18 CDT CPT-12363 Venipuncture Draw Fee 10:14:55 [employer]ILDING [employer]IER CPT-39588 Venipuncture Draw Fee 13:39:45 BUILDING CERTIFIER CPT-OV Office Visit 15:11:22 BUILDING CERTIFIER CPT-02409 Venipuncture Draw Fee 09:20:49 BUILDING CERTIFIER CPT-52465 Venipuncture Draw Fee 16:52:15 BUILDING CERTIFIER CPT-01254 Venipuncture Draw Fee 10:37:24 BUILDING CERTIFIER CPT-50596 Venipuncture Draw Fee 08:21:21 BUILDING CERTIFIER CPT-53106 Venipuncture Draw Fee 08:30:20 BUILDING CERTIFIER CPT-68249 Venipuncture Draw Fee 14:53:21 BUILDING CERTIFIER CPT-64037 Venipuncture Draw Fee 09:40:56 BUILDING CERTIFIER CPT-61373 Venipuncture Draw Fee 10:30:47 BUILDING CERTIFIER CPT-18523 Venipuncture Draw Fee 10:46:17 BUILDING CERTIFIER CPT-30940 Venipuncture Draw Fee 11:12:45 BUILDING CERTIFIER CPT-85036 Venipuncture Draw Fee 09:53:33 BUILDING CERTIFIER CPT-30362 Venipuncture Draw Fee 11:53:51 BUILDING CERTIFIER CPT-51855 Venipuncture Draw Fee 10:33:50 BUILDING CERTIFIER CPT-59430 Venipuncture Draw Fee 10:05:01 BUILDING CERTIFIER CPT-55832 Venipuncture Draw Fee 14:32:52 BUILDING CERTIFIER CPT-50892 Venipuncture Draw Fee 09:46:13 BUILDING CERTIFIER CPT-62425 Venipuncture Draw Fee 11:34:27 BUILDING CERTIFIER CPT-50661 Venipuncture Draw Fee 13:17:16 BUILDING CERTIFIER CPT-83375 Venipuncture Draw Fee 12:05:39 CDT CPT-42128 Venipuncture Draw Fee 12:49:12 CDT CPT-98666 Venipuncture Draw Fee 12:37:18 CDT CPT-37872 Venipuncture Draw Fee 10:57:11 CDT CPT-45775 Venipuncture Draw Fee 13:47:40 CDT CPT-07236 Venipuncture Draw Fee 10:02:17 CDT CPT-04294 TB Tubersol 17:32:32 CDT CPT-OV Office Visit 16:21:53 CDT CPT-OV Office Visit 15:49:22 CDT CPT-OV Office Visit 17:16:31 CDT CPT-OV Office Visit 10:43:31 CDT
--- OUTSIDE RECORDS SUMMARY | 2019-02-09 13:31 | XMS REPORT | Clinical Summary ---
Author Author Renaldo, Florecita Munoz Organization [facility] Address Unknown Phone Allergies, Adverse Reactions, Alerts [...] MG CAPS 1 q d FLUOXETINE HCL 37173 174218 No Longer Active Hope Benavidez MD PhD Active INNOPRAN XL 120 MG [id number] Take one by mouth daily PROPRANOLOL HCL SR BEADS 04240510481 Active Hope Benavidez MD PhD Active POTASSIUM CHLORIDE 20 MEQ PACK by mouth twice a day prn POTASSIUM CHLORIDE 56797252126 Active Adam Yates MD Activ e CYCLOBENZAPRINE HCL 10 MG TABS 1 tablet by mouth three times daily as needed for headaches CYCLOBENZAPRINE HCL 26429755754 Active Selena Yates MD Active SIMVASTATIN 40 MG TABS 1 qd SIMVASTATIN 004 27857672 No Longer Active Adam Yates MD Active MELOXICAM 15 MG TABS 1 qd MELOXICAM 7224891 6689 No Longer Active Adam Yates MD Active ATENOLOL 50 MG TABS 1/2 tab q other day ATENOLOL 38588779278 Active Hope Benavidez MD PhD Active OMEPRAZOLE 20 MG CPDR 1 tablet by mouth daily for GERD OMEPRAZOLE 32439819262 Active Hope Benavidez MD PhD Active IMODIUM A-D 2 MG TABS 2 onset at diarrhea and prn. LOPERAMIDE HCL 83328033872 Active Hope Benavidez MD PhD Active PHENADOZ 25 MG SUPP 1 every 4 hrs. PRN PROMETHAZINE HCL 37080060055 Active Hope Benavidez MD PhD Active PROMETHAZINE HCL 25 MG TABS 1 Q. 4 hr. PRN PROMETH AZINE HCL 17756400127 Active Hope Benavidez MD PhD Active EXCEDRIN EXTRA STRENGTH 250-250-65 MG TABS 1-2 q6h PRN headache 201 04/16/21 [id number] 88553392084 Active Hope Benavidez MD PhD Active ZOFRAN 4 MG TABS 1 q 6 hr prn ONDANSETRON HCL 7349052 7002 Active Fay Alberts Active FLAGYL 500 MG TABS 1 qid METRONIDAZOLE 46476 965464 No Longer Active Adam Yates MD Active LEVAQUIN 750 MG TABS 1 qd LEVOFLOXACIN 5486 6077132 No Longer Active Adam Yates MD Active DYAZIDE 37.5-25 MG CAPS 1 qd TRIAMTERENE-HCTZ 5886 5884923 Active Hope Benavidez MD PhD Active ADULT ASPIRIN LOW STRENGTH 81 MG TBDP 1 qd A SPIRIN 16014000657 Active Hope Benavidez MD PhD Active LEVAQUIN 750 MG TABS 1 qd LEVAQUIN 750 MG T ABS 808805 LEVOFLOXACIN Inactive FLAGYL 500 MG TABS 1 qid FLAGYL 500 MG TABS 394185 METRONIDAZOLE Inactive MELOXICAM 15 MG TABS 1 qd MELOXICAM 15 MG T ABS 645735 MELOXICAM Inactive SIMVASTATIN 40 MG TABS 1 qd SIMVASTATIN 40 MG TABS 655603 SIMVASTATIN Inactive PROZAC 20 MG CAPS 1 [...] - Chem istry sodium, serum 137 mmol/L 270-562 4068/11/01 potassium, serum 3.7 mmol/L 3.5-5.2 chloride, serum 100 mmol/L 98-107 carbon dioxide, venous blood 31.8 mmol/L 21.0-32 .0 blood glucose 98 mg/dL 65-110 calcium, serum 8.6 mg/dL 8.5-10.1 urea nitrogen, blood 23 mg/dL 7-18 creatinine, serum 1.50 mg/dL 0.60-1.30 sodium, serum 136 mmol/L 031-407 6048/05/02 potassium, serum 4.1 mmol/L 3.5-5.2 chloride, serum [...] 11 .6-14.8 platelet count 133 10^3/MM^3 10*3/mm3 810-934 5989/01/17 leukocyte count, blood 3.1 10^3/MM^3 10*3/mm3 4.6-10.2 [...] 11 .6-14.8 platelet count 22 10^3/MM^3 10*3/mm3 645-697 0565/11/19 leukocyte count, blood 10.4 10^3/MM^3 10*3/mm3 4.6-10.2 [...] Verified By Repeat Analysis 10^3/mm ^3 10*3/mm3 086-738 7095/12/10 leukocyte count, blood 7.8 10^3/MM^3 10*3/mm3 4.6-10.2 [...] Panel - Chemistry sodium, serum 139 mmol/L 229-867 3594/12/03 potassium, serum 3.7 mmol/L 3.5-5.2 chloride, serum [...] 0.40 mg/dL 0.00-1.00 sodium, serum 137 mmol/L 531-413 1978/10/01 potassium, serum 3.5 mmol/L 3.5-5.2 chloride, serum [...] 0.60 mg/dL 0.00-1.00 sodium, serum 136 mmol/L 560-355 5728/10/08 potassium, serum 3.1 mmol/L 3.5-5.2 chloride, serum [...] 0.60 mg/dL 0.00-1.00 sodium, serum 139 mmol/L 225-165 2097/10/17 potassium, serum 3.1 mmol/L 3.5-5.2 chloride, serum [...] 0.30 mg/dL 0.00-1.00 sodium, serum 139 mmol/L 965-304 7991/01/21 potassium, serum 3.4 mmol/L 3.5-5.2 chloride, serum [...] 0.40 mg/dL 0.00-1.00 sodium, serum 138 mmol/L 590-532 5875/01/28 potassium, serum 3.2 mmol/L 3.5-5.2 chloride, serum [...] 0.40 mg/dL 0.00-1.00 sodium, serum 140 mmol/L 616-476 4792/02/04 potassium, serum 3.6 mmol/L 3.5-5.2 chloride, serum [...] 0.70 mg/dL 0.00-1.00 sodium, serum 142 mmol/L 922-609 7069/01/03 potassium, serum 3.4 mmol/L 3.5-5.2 chloride, serum [...] 0.50 mg/dL 0.00-1.00 sodium, serum 140 mmol/L 898-558 1372/01/06 potassium, serum 3.4 mmol/L 3.5-5.2 chloride, serum [...] 0.40 mg/dL 0.00-1.00 sodium, serum 136 mmol/L 993-469 1941/04/03 potassium, serum 3.7 mmol/L 3.5-5.2 chloride, serum [...] 0.40 mg/dL 0.00-1.00 sodium, serum 136 mmol/L 676-632 3485/02/11 potassium, serum 3.1 mmol/L 3.5-5.2 chloride, serum [...] 0.50 mg/dL 0.00-1.00 sodium, serum 139 mmol/L 374-692 8340/02/18 potassium, serum 3.6 mmol/L 3.5-5.2 chloride, serum [...] 11 .6-14.8 platelet count 246 10^3/MM^3 10*3/mm3 319-096 7020/02/18 leukocyte count, blood 4.0 10^3/MM^3 10*3/mm3 4.6-10.2 [...] 11 .6-14.8 platelet count 134 10^3/MM^3 10*3/mm3 192-583 4390/01/03 leukocyte count, blood 8.1 10^3/MM^3 10*3/mm3 4.6-10.2 [...] 11 .6-14.8 platelet count 96 10^3/MM^3 10*3/mm3 376-053 5186/01/06 leukocyte count, blood 7.6 10^3/MM^3 10*3/mm3 4.6-10.2 [...] 11 .6-14.8 platelet count 132 10^3/MM^3 10*3/mm3 968-213 5321/02/11 leukocyte count, blood 4.8 10^3/MM^3 10*3/mm3 4.6-10.2 [...] 11 .6-14.8 platelet count 102 10^3/MM^3 10*3/mm3 198-405 4937/02/04 leukocyte count, blood 3.6 10^3/MM^3 10*3/mm3 4.6-10.2 [...] 11 .6-14.8 platelet count 70 10^3/MM^3 10*3/mm3 808-185 0083/01/28 leukocyte count, blood 4.2 10^3/MM^3 10*3/mm3 4.6-10.2 [...] 11 .6-14.8 platelet count 73 10^3/MM^3 10*3/mm3 591-492 7501/01/21 leukocyte count, blood 4.9 10^3/MM^3 10*3/mm3 4.6-10.2 [...] .6-14.8 platelet count 38 recounted 10^3/mm^3 10*3/mm3 230-481 2364/10/08 leukocyte count, blood 2.9 10^3/MM^3 10*3/mm3 4.6-10.2 [...] 11 .6-14.8 platelet count 229 10^3/MM^3 10*3/mm3 992-295 1972/10/17 leukocyte count, blood 12.0 10^3/MM^3 10*3/mm3 4.6-10.2 [...] 11 .6-14.8 platelet count 232 10^3/MM^3 10*3/mm3 784-738 0868/10/01 leukocyte count, blood 8.3 10^3/MM^3 10*3/mm3 4.6-10.2 [...] 11 .6-14.8 platelet count 378 10^3/MM^3 10*3/mm3 863-699 3481/12/03 leukocyte count, blood 8.2 10^3/MM^3 10*3/mm3 4.6-10.2 [...] Diff/Morphology - Chemistry sodium, serum 141 mmol/L 114-916 7304/11/25 potassium, serum 3.9 mmol/L 3.5-5.2 chloride, serum [...] 0.50 mg/dL 0.00-1.00 sodium, serum 137 mmol/L 044-134 8700/11/12 potassium, serum 3.2 mmol/L 3.5-5.2 chloride, serum [...] 0.40 mg/dL 0.00-1.00 sodium, serum 140 mmol/L 567-612 7120/12/17 potassium, serum 3.3 mmol/L 3.5-5.2 chloride, serum [...] 0.40 mg/dL 0.00-1.00 sodium, serum 138 mmol/L 977-119 2025/12/24 potassium, serum 3.7 mmol/L 3.5-5.2 chloride, serum [...] 0.50 mg/dL 0.00-1.00 sodium, serum 138 mmol/L 523-200 9145/11/05 potassium, serum 3.9 mmol/L 3.5-5.2 chloride, serum [...] 0.40 mg/dL 0.00-1.00 sodium, serum 135 mmol/L 417-582 1236/10/22 potassium, serum 3.0 mmol/L 3.5-5.2 chloride, serum [...] 0.50 mg/dL 0.00-1.00 sodium, serum 128 mmol/L 415-816 6091/10/29 potassium, serum 2.6 mmol/L 3.5-5.2 chloride, serum [...] 0.50 mg/dL 0.00-1.00 sodium, serum 141 mmol/L 715-822 0944/01/14 potassium, serum 3.9 mmol/L 3.5-5.2 chloride, serum [...] 11 .6-14.8 platelet count 22 10^3/MM^3 10*3/mm3 151-297 5524/10/22 leukocyte count, blood 14.7 10^3/MM^3 10*3/mm3 4.6-10.2 [...] 11 .6-14.8 platelet count 428 10^3/MM^3 10*3/mm3 471-063 0608/10/29 leukocyte count, blood 26.3 10^3/MM^3 10*3/mm3 4.6-10.2 [...] 11 .6-14.8 platelet count 268 10^3/MM^3 10*3/mm3 614-833 9305/11/12 leukocyte count, blood 12.1 10^3/MM^3 10*3/mm3 4.6-10.2 [...] 11 .6-14.8 platelet count 157 10^3/MM^3 10*3/mm3 596-758 3665/11/05 leukocyte count, blood 16.4 10^3/MM^3 10*3/mm3 4.6-10.2 [...] 11 .6-14.8 platelet count 215 10^3/MM^3 10*3/mm3 927-916 5935/12/24 leukocyte count, blood 14.0 10^3/MM^3 10*3/mm3 4.6-10.2 [...] 11 .6-14.8 platelet count 66 10^3/MM^3 10*3/mm3 532-589 8497/12/17 leukocyte count, blood 18.6 10^3/MM^3 10*3/mm3 4.6-10.2 [...] 11 .6-14.8 platelet count 75 10^3/MM^3 10*3/mm3 818-186 0160/11/25 leukocyte count, blood 21.1 10^3/MM^3 10*3/mm3 4.6-10.2 [...] 11 .6-14.8 platelet count 413 10^3/MM^3 10*3/mm3 881-120 1735/01/16 leukocyte count, blood 3.6 10^3/MM^3 10*3/mm3 4.6-10.2 [...] - Chem istry sodium, serum 141 mmol/L 872-193 2396/11/19 potassium, serum 3.9 mmol/L 3.5-5.2 chloride, serum [...] 0.50 mg/dL 0.00-1.00 sodium, serum 142 mmol/L 031-263 5477/12/10 potassium, serum 3.9 mmol/L 3.5-5.2 chloride, serum [...] Diff/Morphology - Chemistry sodium, serum 142 mmol/L 775-304 8557/12/31 potassium, serum 3.6 mmol/L 3.5-5.2 chloride, serum [...] 3.5-5.2 Encounters Code Encounter Date Provider Facility CPT-55831 Level 3 New Patient 01:46:11 [employer] Hope landers MD PhD [facility] Procedures Code Procedure Name Date Entry Date Standard Desc ription CPT-06694 Postop F/U Visit 15:21:02 CDT CPT-TCMH Transitional Care Mgmt-High 07:52:27 CDT 20 20/06/01 CPT-62964 Venipuncture Draw Fee 13:51:18 CDT CPT-79605 Venipuncture Draw Fee 10:14:55 [employer] CPT-66855 Venipuncture Draw Fee 13:39:45 [employer] CPT-OV Office Visit 15:11:22 [employer] CPT-36576 Venipuncture Draw Fee 09:20:49 [employer] CPT-74059 Venipuncture Draw Fee 16:52:15 [employer] CPT-63961 Venipuncture Draw Fee 10:37:24 [employer] CPT-97439 Venipuncture Draw Fee 08:21:21 [employer] CPT-27589 Venipuncture Draw Fee 08:30:20 [employer] CPT-23214 Venipuncture Draw Fee 14:53:21 [employer] CPT-94760 Venipuncture Draw Fee 09:40:56 [employer] CPT-41553 Venipuncture Draw Fee 10:30:47 [employer] CPT-11629 Venipuncture Draw Fee 10:46:17 [employer] CPT-51121 Venipuncture Draw Fee 11:12:45 [employer] CPT-09543 Venipuncture Draw Fee 09:53:33 [employer] CPT-77505 Venipuncture Draw Fee 11:53:51 [employer] CPT-15058 Venipuncture Draw Fee 10:33:50 [employer] CPT-10882 Venipuncture Draw Fee 10:05:01 [employer] CPT-31964 Venipuncture Draw Fee 14:32:52 [employer] CPT-51669 Venipuncture Draw Fee 09:46:13 [employer] CPT-53143 Venipuncture Draw Fee 11:34:27 [employer] CPT-38648 Venipuncture Draw Fee 13:17:16 [employer] CPT-01488 Venipuncture Draw Fee 12:05:39 CDT CPT-29129 Venipuncture Draw Fee 12:49:12 CDT CPT-11269 Venipuncture Draw Fee 12:37:18 CDT CPT-65719 Venipuncture Draw Fee 10:57:11 CDT CPT-00159 Venipuncture Draw Fee 13:47:40 CDT CPT-20737 Venipuncture Draw Fee 10:02:17 CDT CPT-18680 TB Tubersol 17:32:32 CDT CPT-OV Office Visit 16:21:53 CDT CPT-OV Office Visit 15:49:22 CDT CPT-OV Office Visit 17:16:31 CDT CPT-OV Office Visit 10:43:31 CDT
--- OUTSIDE RECORDS SUMMARY | 2019-02-09 13:32 | XMS REPORT | Clinical Summary ---
Author Author Renaldo, Florecita Munoz Organization [facility] Address Unknown Phone Allergies, Adverse [...] Abdominal pain, generalized FEVER UNSPECIFIED 780.60 Resolved oHpe Benavidez MD PhD Fever, unspecified UNSPECIFIED VENOUS [...] MG CAPS 1 q d FLUOXETINE HCL 41401 183531 No Longer Active Hope Benavidez MD PhD Active INNOPRAN XL 120 MG [id number] Take one by mouth daily PROPRANOLOL HCL SR BEADS 51644714752 Active Hope Benavidez MD PhD Active POTASSIUM CHLORIDE 20 MEQ PACK by mouth twice a day prn POTASSIUM CHLORIDE 64826730476 Active Adam Yates MD Activ e CYCLOBENZAPRINE HCL 10 MG TABS 1 tablet by mouth three times daily as needed for headaches CYCLOBENZAPRINE HCL 88047435380 Active Selena Yates MD Active SIMVASTATIN 40 MG TABS 1 qd SIMVASTATIN 004 58414126 No Longer Active Adam Yates MD Active MELOXICAM 15 MG TABS 1 qd MELOXICAM 5892930 3301 No Longer Active Adam Yates MD Active ATENOLOL 50 MG TABS 1/2 tab q other day ATENOLOL 11836837420 Active Hope Benavidez MD PhD Active OMEPRAZOLE 20 MG CPDR 1 tablet by mouth daily for GERD OMEPRAZOLE 48630916381 Active Hope Benavidez MD PhD Active IMODIUM A-D 2 MG TABS 2 onset at diarrhea and prn. LOPERAMIDE HCL 05652904783 Active Hope Benavidez MD PhD Active PHENADOZ 25 MG SUPP 1 every 4 hrs. PRN PROMETHAZINE HCL 64274775198 Active Hope Benavidez MD PhD Active PROMETHAZINE HCL 25 MG TABS 1 Q. 4 hr. PRN PROMETH AZINE HCL 57644430570 Active Hope Benavidez MD PhD Active EXCEDRIN EXTRA STRENGTH 250-250-65 MG TABS 1-2 q6h PRN headache 201 04/16/21 WEYGRID-JUZUTAKRUORBL-ENZAFHOG 68017877380 Active Hope Benavidez MD PhD Active ZOFRAN 4 MG TABS 1 q 6 hr prn ONDANSETRON HCL 6289083 7002 Active Fay Alberts Active FLAGYL 500 MG TABS 1 qid METRONIDAZOLE 74609 830351 No Longer Active Adam Yates MD Active LEVAQUIN 750 MG TABS 1 qd LEVOFLOXACIN 5486 0458528 No Longer Active Adam Yates MD Active DYAZIDE 37.5-25 MG CAPS 1 qd TRIAMTERENE-HCTZ 5886 2508117 Active Hope Benavidez MD PhD Active ADULT ASPIRIN LOW STRENGTH 81 MG TBDP 1 qd A SPIRIN 31752311877 Active Hope Benavidez MD PhD Active LEVAQUIN 750 MG TABS 1 qd LEVAQUIN 750 MG T ABS 382909 LEVOFLOXACIN Inactive FLAGYL 500 MG TABS 1 qid FLAGYL 500 MG TABS 522745 METRONIDAZOLE Inactive MELOXICAM 15 MG TABS 1 qd MELOXICAM 15 MG T ABS 511763 MELOXICAM Inactive SIMVASTATIN 40 MG TABS 1 qd SIMVASTATIN 40 MG TABS 824966 SIMVASTATIN Inactive PROZAC 20 MG CAPS 1 [...] - Chem istry sodium, serum 137 mmol/L 595-078 2897/11/01 potassium, serum 3.7 mmol/L 3.5-5.2 chloride, serum 100 mmol/L 98-107 carbon dioxide, venous blood 31.8 mmol/L 21.0-32 .0 blood glucose 98 mg/dL 65-110 calcium, serum 8.6 mg/dL 8.5-10.1 urea nitrogen, blood 23 mg/dL 7-18 creatinine, serum 1.50 mg/dL 0.60-1.30 sodium, serum 136 mmol/L 772-000 1488/05/02 potassium, serum 4.1 mmol/L 3.5-5.2 chloride, serum [...] 11 .6-14.8 platelet count 133 10^3/MM^3 10*3/mm3 696-387 1637/01/17 leukocyte count, blood 3.1 10^3/MM^3 10*3/mm3 4.6-10.2 [...] 11 .6-14.8 platelet count 22 10^3/MM^3 10*3/mm3 689-322 6468/11/19 leukocyte count, blood 10.4 10^3/MM^3 10*3/mm3 4.6-10.2 [...] Verified By Repeat Analysis 10^3/mm ^3 10*3/mm3 830-459 1412/12/10 leukocyte count, blood 7.8 10^3/MM^3 10*3/mm3 4.6-10.2 [...] Panel - Chemistry sodium, serum 139 mmol/L 771-859 3434/12/03 potassium, serum 3.7 mmol/L 3.5-5.2 chloride, serum [...] 0.40 mg/dL 0.00-1.00 sodium, serum 137 mmol/L 780-018 2594/10/01 potassium, serum 3.5 mmol/L 3.5-5.2 chloride, serum [...] 0.60 mg/dL 0.00-1.00 sodium, serum 136 mmol/L 146-224 4118/10/08 potassium, serum 3.1 mmol/L 3.5-5.2 chloride, serum [...] 0.60 mg/dL 0.00-1.00 sodium, serum 139 mmol/L 409-093 6548/10/17 potassium, serum 3.1 mmol/L 3.5-5.2 chloride, serum [...] 0.30 mg/dL 0.00-1.00 sodium, serum 139 mmol/L 702-946 0326/01/21 potassium, serum 3.4 mmol/L 3.5-5.2 chloride, serum [...] 0.40 mg/dL 0.00-1.00 sodium, serum 138 mmol/L 000-304 2830/01/28 potassium, serum 3.2 mmol/L 3.5-5.2 chloride, serum [...] 0.40 mg/dL 0.00-1.00 sodium, serum 140 mmol/L 767-906 5146/02/04 potassium, serum 3.6 mmol/L 3.5-5.2 chloride, serum [...] 0.70 mg/dL 0.00-1.00 sodium, serum 142 mmol/L 602-870 2787/01/03 potassium, serum 3.4 mmol/L 3.5-5.2 chloride, serum [...] 0.50 mg/dL 0.00-1.00 sodium, serum 140 mmol/L 698-439 3881/01/06 potassium, serum 3.4 mmol/L 3.5-5.2 chloride, serum [...] 0.40 mg/dL 0.00-1.00 sodium, serum 136 mmol/L 687-375 1779/04/03 potassium, serum 3.7 mmol/L 3.5-5.2 chloride, serum [...] 0.40 mg/dL 0.00-1.00 sodium, serum 136 mmol/L 399-017 0230/02/11 potassium, serum 3.1 mmol/L 3.5-5.2 chloride, serum [...] 0.50 mg/dL 0.00-1.00 sodium, serum 139 mmol/L 983-156 4134/02/18 potassium, serum 3.6 mmol/L 3.5-5.2 chloride, serum [...] 11 .6-14.8 platelet count 246 10^3/MM^3 10*3/mm3 176-265 6262/02/18 leukocyte count, blood 4.0 10^3/MM^3 10*3/mm3 4.6-10.2 [...] 11 .6-14.8 platelet count 134 10^3/MM^3 10*3/mm3 840-884 4923/01/03 leukocyte count, blood 8.1 10^3/MM^3 10*3/mm3 4.6-10.2 [...] 11 .6-14.8 platelet count 96 10^3/MM^3 10*3/mm3 692-516 8631/01/06 leukocyte count, blood 7.6 10^3/MM^3 10*3/mm3 4.6-10.2 [...] 11 .6-14.8 platelet count 132 10^3/MM^3 10*3/mm3 754-616 6970/02/11 leukocyte count, blood 4.8 10^3/MM^3 10*3/mm3 4.6-10.2 [...] 11 .6-14.8 platelet count 102 10^3/MM^3 10*3/mm3 629-574 1589/02/04 leukocyte count, blood 3.6 10^3/MM^3 10*3/mm3 4.6-10.2 [...] 11 .6-14.8 platelet count 70 10^3/MM^3 10*3/mm3 082-995 5584/01/28 leukocyte count, blood 4.2 10^3/MM^3 10*3/mm3 4.6-10.2 [...] 11 .6-14.8 platelet count 73 10^3/MM^3 10*3/mm3 183-650 5650/01/21 leukocyte count, blood 4.9 10^3/MM^3 10*3/mm3 4.6-10.2 [...] .6-14.8 platelet count 38 recounted 10^3/mm^3 10*3/mm3 107-910 3680/10/08 leukocyte count, blood 2.9 10^3/MM^3 10*3/mm3 4.6-10.2 [...] 11 .6-14.8 platelet count 229 10^3/MM^3 10*3/mm3 094-062 9820/10/17 leukocyte count, blood 12.0 10^3/MM^3 10*3/mm3 4.6-10.2 [...] 11 .6-14.8 platelet count 232 10^3/MM^3 10*3/mm3 737-047 7742/10/01 leukocyte count, blood 8.3 10^3/MM^3 10*3/mm3 4.6-10.2 [...] 11 .6-14.8 platelet count 378 10^3/MM^3 10*3/mm3 873-911 3301/12/03 leukocyte count, blood 8.2 10^3/MM^3 10*3/mm3 4.6-10.2 [...] Diff/Morphology - Chemistry sodium, serum 141 mmol/L 992-532 9119/11/25 potassium, serum 3.9 mmol/L 3.5-5.2 chloride, serum [...] 0.50 mg/dL 0.00-1.00 sodium, serum 137 mmol/L 709-853 4192/11/12 potassium, serum 3.2 mmol/L 3.5-5.2 chloride, serum [...] 0.40 mg/dL 0.00-1.00 sodium, serum 140 mmol/L 768-538 6835/12/17 potassium, serum 3.3 mmol/L 3.5-5.2 chloride, serum [...] 0.40 mg/dL 0.00-1.00 sodium, serum 138 mmol/L 828-405 7079/12/24 potassium, serum 3.7 mmol/L 3.5-5.2 chloride, serum [...] 0.50 mg/dL 0.00-1.00 sodium, serum 138 mmol/L 873-574 4314/11/05 potassium, serum 3.9 mmol/L 3.5-5.2 chloride, serum [...] 0.40 mg/dL 0.00-1.00 sodium, serum 135 mmol/L 499-639 5119/10/22 potassium, serum 3.0 mmol/L 3.5-5.2 chloride, serum [...] 0.50 mg/dL 0.00-1.00 sodium, serum 128 mmol/L 612-867 2444/10/29 potassium, serum 2.6 mmol/L 3.5-5.2 chloride, serum [...] 0.50 mg/dL 0.00-1.00 sodium, serum 141 mmol/L 203-111 6306/01/14 potassium, serum 3.9 mmol/L 3.5-5.2 chloride, serum [...] 11 .6-14.8 platelet count 22 10^3/MM^3 10*3/mm3 263-043 4055/10/22 leukocyte count, blood 14.7 10^3/MM^3 10*3/mm3 4.6-10.2 [...] 11 .6-14.8 platelet count 428 10^3/MM^3 10*3/mm3 060-572 6677/10/29 leukocyte count, blood 26.3 10^3/MM^3 10*3/mm3 4.6-10.2 [...] 11 .6-14.8 platelet count 268 10^3/MM^3 10*3/mm3 155-024 7211/11/12 leukocyte count, blood 12.1 10^3/MM^3 10*3/mm3 4.6-10.2 [...] 11 .6-14.8 platelet count 157 10^3/MM^3 10*3/mm3 458-476 1101/11/05 leukocyte count, blood 16.4 10^3/MM^3 10*3/mm3 4.6-10.2 [...] 11 .6-14.8 platelet count 215 10^3/MM^3 10*3/mm3 387-452 1347/12/24 leukocyte count, blood 14.0 10^3/MM^3 10*3/mm3 4.6-10.2 [...] 11 .6-14.8 platelet count 66 10^3/MM^3 10*3/mm3 750-555 2638/12/17 leukocyte count, blood 18.6 10^3/MM^3 10*3/mm3 4.6-10.2 [...] 11 .6-14.8 platelet count 75 10^3/MM^3 10*3/mm3 958-785 7882/11/25 leukocyte count, blood 21.1 10^3/MM^3 10*3/mm3 4.6-10.2 [...] 11 .6-14.8 platelet count 413 10^3/MM^3 10*3/mm3 383-077 9438/01/16 leukocyte count, blood 3.6 10^3/MM^3 10*3/mm3 4.6-10.2 [...] - Chem istry sodium, serum 141 mmol/L 449-950 6142/11/19 potassium, serum 3.9 mmol/L 3.5-5.2 chloride, serum [...] 0.50 mg/dL 0.00-1.00 sodium, serum 142 mmol/L 343-522 9615/12/10 potassium, serum 3.9 mmol/L 3.5-5.2 chloride, serum [...] Diff/Morphology - Chemistry sodium, serum 142 mmol/L 245-669 3571/12/31 potassium, serum 3.6 mmol/L 3.5-5.2 chloride, serum [...] 3.5-5.2 Encounters Code Encounter Date Provider Facility CPT-74634 Level 3 New Patient 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 Hope landers MD PhD [facility] Procedures Code Procedure Name Date Entry Date Standard Desc ription CPT-38097 Postop F/U Visit 15:21:02 CDT CPT-TCMH Transitional Care Mgmt-High 07:52:27 CDT 20 20/06/01 CPT-88970 Venipuncture Draw Fee 13:51:18 CDT CPT-28572 Venipuncture Draw Fee 10:14:55 EMPLOYMENT CASE MANAGER CPT-08838 Venipuncture Draw Fee 13:39:45 EMPLOYMENT CASE MANAGER CPT-OV Office Visit 15:11:22 EMPLOYMENT CASE MANAGER CPT-12261 Venipuncture Draw Fee 09:20:49 EMPLOYMENT CASE MANAGER CPT-48742 Venipuncture Draw Fee 16:52:15 EMPLOYMENT CASE MANAGER CPT-98583 Venipuncture Draw Fee 10:37:24 EMPLOYMENT CASE MANAGER CPT-26151 Venipuncture Draw Fee 08:21:21 EMPLOYMENT CASE MANAGER CPT-60368 Venipuncture Draw Fee 08:30:20 EMPLOYMENT CASE MANAGER CPT-46912 Venipuncture Draw Fee 14:53:21 EMPLOYMENT CASE MANAGER CPT-44238 Venipuncture Draw Fee 09:40:56 EMPLOYMENT CASE MANAGER CPT-51227 Venipuncture Draw Fee 10:30:47 EMPLOYMENT CASE MANAGER CPT-94106 Venipuncture Draw Fee 10:46:17 EMPLOYMENT CASE MANAGER CPT-93628 Venipuncture Draw Fee 11:12:45 EMPLOYMENT CASE MANAGER CPT-69887 Venipuncture Draw Fee 09:53:33 EMPLOYMENT CASE MANAGER CPT-92314 Venipuncture Draw Fee 11:53:51 EMPLOYMENT CASE MANAGER CPT-01571 Venipuncture Draw Fee 10:33:50 EMPLOYMENT CASE MANAGER CPT-18169 Venipuncture Draw Fee 10:05:01 EMPLOYMENT CASE MANAGER CPT-33519 Venipuncture Draw Fee 14:32:52 EMPLOYMENT CASE MANAGER CPT-05318 Venipuncture Draw Fee 09:46:13 EMPLOYMENT CASE MANAGER CPT-40529 Venipuncture Draw Fee 11:34:27 EMPLOYMENT CASE MANAGER CPT-27153 Venipuncture Draw Fee 13:17:16 EMPLOYMENT CASE MANAGER CPT-25396 Venipuncture Draw Fee 12:05:39 CDT CPT-61511 Venipuncture Draw Fee 12:49:12 CDT CPT-36401 Venipuncture Draw Fee 12:37:18 CDT CPT-79347 Venipuncture Draw Fee 10:57:11 CDT CPT-19634 Venipuncture Draw Fee 13:47:40 CDT CPT-30048 Venipuncture Draw Fee 10:02:17 CDT CPT-51073 TB Tubersol 17:32:32 CDT CPT-OV Office Visit 16:21:53 CDT CPT-OV Office Visit 15:49:22 CDT CPT-OV Office Visit 17:16:31 CDT CPT-OV Office Visit 10:43:31 CDT
--- OUTSIDE RECORDS SUMMARY | 2019-02-09 13:32 | XMS REPORT | Clinical Summary ---
[...] unspecified FH Colon Cancer V16.0 Active Adam aSn Family history of malignant neoplasm of gastrointestinal [...] 1 injection every 2 weeks 01/09 CYANOCOBALAMIN 87545238098 Active Laura Elder Active VITAMIN D3 4000 IU 1 tab 3 times daily VITAMIN D3 400 0 IU Active Hope Benavidez MD PhD Active BACTRIM DS 800-160 MG TABS 1 pill by mouth twice daily, for UTI SULFAMETHOXAZOLE-TRIMETHOPRIM 23729360187 No Longer Active Lisa Benavidez MD PhD Active PROLIA 60 MG/ML SOLN 1 shot every 6 months for osteoprosis DENOSUMAB 86893278492 Active Hope Benavidez MD PhD Active CALCIUM + D + K 750-500-40 MG-UNT-MCG TABS 1 tab by mouth tw ice daily CALCIUM-VITAMIN D-VITAMIN K 47941475298 Active Hope landers MD PhD Active DAILY VALUE MULTIVITAMIN TABS 1 tab by mouth twice daily MULTIPLE VITAMIN 65676010164 Active Hope Benavidez MD PhD Active FISH OIL 306 MG CAPS 1 tab by mouth three times daily OMEGA-3 FATTY ACIDS 11280880433 Active Hope Benavidez MD PhD Active LUTEIN 10 MG TABS 1 tab daily LUTEIN 64575991720 Act cash Hope Benavidez MD PhD Active FLORANEX PACK 1 pack three times daily, for bowel health LACTOBACILLUS 28579532086 Active Hope Benavidez MD PhD Active LOMOTIL 2.5-0.025 MG TABS 1 tab by mouth prn DIPHENOXYLATE-ATROPINE 05631619443 Active Hope Benavidez MD PhD Active TRIAMTERENE-HCTZ 37.5-25 MG TABS 1 tab by mouth daily TRIAMTERENE-HCTZ 25865213066 Active Hope Benavidez MD PhD Acti ve IRON 325 (65 FE) MG TABS 1 tab daily FERROUS SULF ATE 19769266057 Active Hope Benavidez MD PhD Active MAGNESIUM GLUCONATE 250 MG TABS 1 tab tid MAGN ESIUM GLUCONATE 04928314472 Active Adam Yates MD Active ATENOLOL 50 MG TABS 1/2 tab q other day m-w-f ATE NOLOL 90750432338 Active Hope Benavidez MD PhD Active PROPRANOLOL HCL 80 MG TABS 1 tab tue. and thur. PROPRANOLOL HCL 17555336974 Active Adam Yates MD Active CYCLOBENZAPRINE HCL 10 MG TABS 1 tablet by mouth three times daily as needed for headaches CYCLOBENZAPRINE HCL 67306101958 No Longe r Active Adam Yates MD Active OMEPRAZOLE 20 MG CPDR 1 tablet by mouth daily for GERD OMEPRAZOLE 55910198699 No Longer Active Adam Yates MD A ctive ZOFRAN 8 MG TABS 1 tab by mouth every 12 hours prn 201 05/16/09 ONDANSETRON HCL 55805209234 No Longer Active Adam Yates MD Active PHENADOZ 25 MG SUPP 1 every 4 hrs. PRN PROMETHA ZINE HCL 54157646853 No Longer Active Adam Yates MD Active POTASSIUM CHLORIDE 20 MEQ PACK by mouth twice a day prn POTASSIUM CHLORIDE 95184517457 No Longer Active Adam Yates MD Active PROMETHAZINE HCL 25 MG TABS 1 Q. 4 hr. PRN PROM ETHAZINE HCL 34491461485 No Longer Active Adam Yates MD Active INNOPRAN XL 120 MG [id number] Take one by mouth daily 2 PROPRANOLOL HCL SR BEADS 97567902293 No Longer Active dAam Yates MD A ctive FLAGYL 500 MG TABS 1 pill by mouth three times daily, for diarrh ea METRONIDAZOLE 14814770242 No Longer Active Hope Benavidez MD PhD Active DYAZIDE 37.5-25 MG CAPS 1 qd TRIAMTERENE-HC TZ 59241132617 No Longer Active Hope Benavidez MD PhD Active PROZAC 20 MG CAPS 1 q d FLUOXETINE HCL 71660 439546 No Longer Active Hope Benavidez MD PhD Active SIMVASTATIN 40 MG TABS 1 qd SIMVASTATIN 004 19434640 No Longer Active Adam Yates MD Active MELOXICAM 15 MG TABS 1 qd MELOXICAM 3530836 0355 No Longer Active Adam Yates MD Active IMODIUM A-D 2 MG TABS 2 onset at diarrhea and prn. LOPERAMIDE HCL 68437311941 Active Hope Benavidez MD PhD Active EXCEDRIN EXTRA STRENGTH 250-250-65 MG TABS 1-2 q6h PRN headache 201 04/16/21 [id number] 11868513917 Active Hope Benavidez MD PhD Active FLAGYL 500 MG TABS 1 qid METRONIDAZOLE 66272 654954 No Longer Active Adam Yates MD Active LEVAQUIN 750 MG TABS 1 qd LEVOFLOXACIN 5486 7922199 No Longer Active Adam Yates MD Active ADULT ASPIRIN LOW STRENGTH 81 MG TBDP 1 qd A SPIRIN 56444504148 Active Hope Benavidez MD PhD Active LEVAQUIN 750 MG TABS 1 qd LEVAQUIN 750 MG T ABS 873654 LEVOFLOXACIN Inactive FLAGYL 500 MG TABS 1 qid FLAGYL 500 MG TABS 830275 METRONIDAZOLE Inactive MELOXICAM 15 MG TABS 1 qd MELOXICAM 15 MG T ABS 242804 MELOXICAM Inactive SIMVASTATIN 40 MG TABS 1 qd SIMVASTATIN 40 MG TABS 860414 SIMVASTATIN Inactive PROZAC 20 MG CAPS 1 q d PROZAC 20 MG CAPS 31 0385 FLUOXETINE HCL Inactive DYAZIDE 37.5-25 MG CAPS 1 qd DYAZIDE 37.5 -25 MG CAPS 544041 TRIAMTERENE-HCTZ Inactive INNOPRAN XL 120 MG [id number] Take one by mouth daily 2 INNOPRAN XL 120 MG [id number] PROPRANOLOL HCL SR BEADS Inactive PROMETHAZINE HCL 25 MG TABS 1 Q. 4 hr. PRN PROMETHAZINE HCL 25 MG TABS 249510 PROMETHAZINE HCL Inactive POTASSIUM CHLORIDE 20 MEQ PACK by mouth twice a day prn POTASSIUM CHLORIDE 20 MEQ PACK 329280 POTASSIUM CHLORIDE Inactive PHENADOZ 25 MG SUPP 1 every 4 hrs. PRN PHENADOZ 2 5 MG SUPP 540857 PROMETHAZINE HCL Inactive ZOFRAN 8 MG TABS 1 tab by mouth every 12 hours prn 201 05/16/09 ZOFRAN 8 MG TABS 029729 ONDANSETRON HCL Inactive OMEPRAZOLE 20 MG CPDR 1 tablet by mouth daily for GERD OMEPRAZOLE 20 MG CPDR 627717 OMEPRAZOLE Inactive CYCLOBENZAPRINE HCL 10 MG TABS 1 tablet by mouth three times daily as needed for headaches CYCLOBENZAPRINE HCL 10 MG TABS 451974 CYCLOBENZAPRINE HCL Inactive FLAGYL 500 MG TABS 1 pill by mouth three times daily, for diarrh ea FLAGYL 500 MG TABS 607577 METRONIDAZOLE Inactive BACTRIM DS 800-160 MG TABS [...] Range Description Chart Maintenance: labs added to [employer] et - Chemistry magnesium, serum 2.0 mg/dL Chart Maintenance: Outside labs entered on [employer] - Chemistry sodium, serum 139 mmol/L potassium, serum 3.9 mmol/L blood glucose 85 mg/dL creatinine, serum 1.26 mg/dL aspartate aminotransferase (SGOT), serum 33 U/L alanine aminotransferase (SGPT), serum 44 U/L alkaline phosphatase, serum 127 U/L Chart Maintenance: Outside labs entered on [employer] - Hematology leukocyte count, blood 4.6 10*3/mm3 hemoglobin, blood 13.6 g/dL platelet count 162 10*3/mm3 Lab Report: Basic Metabolic Panel - Chem istry sodium, serum 136 mmol/L 929-868 7018/05/02 potassium, serum 4.1 mmol/L 3.5-5.2 chloride, serum [...] 1.16 mg/dL Lab Report: [facility] - Chemistry sodium, serum 137 mmol/L potassium, serum 3.8 mmol/L blood glucose 79 mg/dL creatinine, serum 1.02 mg/dL magnesium, serum 1.2 mg/dL Lab Report: [facility]/ [facility] - Hematology [...] 11 .6-14.8 platelet count 102 10^3/MM^3 10*3/mm3 520-721 7720/01/08 leukocyte count, blood 9.0 10^3/MM^3 10*3/mm3 4.6-10.2 [...] 11 .6-14.8 platelet count 133 10^3/MM^3 10*3/mm3 713-593 6994/01/17 leukocyte count, blood 3.1 10^3/MM^3 10*3/mm3 4.6-10.2 [...] Panel - Chemistry sodium, serum 139 mmol/L 696-775 9382/01/21 potassium, serum 3.4 mmol/L 3.5-5.2 chloride, serum [...] 0.40 mg/dL 0.00-1.00 sodium, serum 138 mmol/L 364-534 6009/01/28 potassium, serum 3.2 mmol/L 3.5-5.2 chloride, serum [...] 0.40 mg/dL 0.00-1.00 sodium, serum 140 mmol/L 549-538 5621/02/04 potassium, serum 3.6 mmol/L 3.5-5.2 chloride, serum [...] 0.70 mg/dL 0.00-1.00 sodium, serum 136 mmol/L 796-560 9785/02/11 potassium, serum 3.1 mmol/L 3.5-5.2 chloride, serum [...] 0.50 mg/dL 0.00-1.00 sodium, serum 139 mmol/L 775-063 3260/02/18 potassium, serum 3.6 mmol/L 3.5-5.2 chloride, serum [...] 0.50 mg/dL 0.00-1.00 sodium, serum 140 mmol/L 520-781 6873/01/06 potassium, serum 3.4 mmol/L 3.5-5.2 chloride, serum [...] 0.40 mg/dL 0.00-1.00 sodium, serum 136 mmol/L 034-588 7383/04/03 potassium, serum 3.7 mmol/L 3.5-5.2 chloride, serum [...] 0.40 mg/dL 0.00-1.00 sodium, serum 142 mmol/L 057-136 6400/01/03 potassium, serum 3.4 mmol/L 3.5-5.2 chloride, serum [...] 0.50 mg/dL 0.00-1.00 sodium, serum 139 mmol/L 485-978 0275/12/03 potassium, serum 3.7 mmol/L 3.5-5.2 chloride, serum [...] 0.40 mg/dL 0.00-1.00 sodium, serum 138 mmol/L 858-909 2124/08/14 potassium, serum 4.0 mmol/L 3.5-5.2 chloride, serum [...] 11 .6-14.8 platelet count 193 10^3/MM^3 10*3/mm3 974-148 9855/12/03 leukocyte count, blood 8.2 10^3/MM^3 10*3/mm3 4.6-10.2 [...] 11 .6-14.8 platelet count 98 10^3/MM^3 10*3/mm3 601-022 0713/01/06 leukocyte count, blood 7.6 10^3/MM^3 10*3/mm3 4.6-10.2 [...] 11 .6-14.8 platelet count 132 10^3/MM^3 10*3/mm3 196-938 7868/01/03 leukocyte count, blood 8.1 10^3/MM^3 10*3/mm3 4.6-10.2 [...] 11 .6-14.8 platelet count 96 10^3/MM^3 10*3/mm3 805-267 9027/04/03 leukocyte count, blood 5.6 10^3/MM^3 10*3/mm3 4.6-10.2 [...] 11 .6-14.8 platelet count 246 10^3/MM^3 10*3/mm3 767-059 9150/02/18 leukocyte count, blood 4.0 10^3/MM^3 10*3/mm3 4.6-10.2 [...] 11 .6-14.8 platelet count 134 10^3/MM^3 10*3/mm3 723-380 0968/02/11 leukocyte count, blood 4.8 10^3/MM^3 10*3/mm3 4.6-10.2 [...] 11 .6-14.8 platelet count 102 10^3/MM^3 10*3/mm3 607-865 9790/02/04 leukocyte count, blood 3.6 10^3/MM^3 10*3/mm3 4.6-10.2 [...] 11 .6-14.8 platelet count 70 10^3/MM^3 10*3/mm3 403-452 3445/01/28 leukocyte count, blood 4.2 10^3/MM^3 10*3/mm3 4.6-10.2 [...] 11 .6-14.8 platelet count 73 10^3/MM^3 10*3/mm3 107-088 7064/01/21 leukocyte count, blood 4.9 10^3/MM^3 10*3/mm3 4.6-10.2 [...] Diff/Morphology - Chemistry sodium, serum 141 mmol/L 891-895 5454/01/14 potassium, serum 3.9 mmol/L 3.5-5.2 chloride, serum [...] 0.50 mg/dL 0.00-1.00 sodium, serum 140 mmol/L 447-321 8129/12/17 potassium, serum 3.3 mmol/L 3.5-5.2 chloride, serum [...] 0.40 mg/dL 0.00-1.00 sodium, serum 138 mmol/L 115-578 7708/12/24 potassium, serum 3.7 mmol/L 3.5-5.2 chloride, serum [...] 11 .6-14.8 platelet count 66 10^3/MM^3 10*3/mm3 826-078 8734/12/17 leukocyte count, blood 18.6 10^3/MM^3 10*3/mm3 4.6-10.2 [...] 11 .6-14.8 platelet count 75 10^3/MM^3 10*3/mm3 311-181 5865/01/14 leukocyte count, blood 6.2 10^3/MM^3 10*3/mm3 4.6-10.2 [...] - Chem istry sodium, serum 142 mmol/L 414-292 3168/12/10 potassium, serum 3.9 mmol/L 3.5-5.2 chloride, serum [...] Diff/Morphology - Chemistry sodium, serum 142 mmol/L 432-773 0407/12/31 potassium, serum 3.6 mmol/L 3.5-5.2 chloride, serum [...] Panel - Chemistry cholesterol, serum 209 mg/dL 074-057 0834/09/11 triglyceride, serum, fasting 113 mg/dL 30-200 HDL [...] 5.0-8.5 Encounters Code Encounter Date Provider Facility CPT-29219 Level 4 Est. 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 Patient 20:04:51 CDT Hope cohn MD PhD [facility] CPT-13221 Level 3 New Patient 01:46:11 [employer] Hope landers MD PhD [facility] Procedures Code Procedure Name Date Entry Date Standard Desc ription CPT-G0008 Administration of Influenza Virus Vaccine 13:36:47 CDT CPT-84781 Fluzone High-Dose Intramuscular Suspension 11/15 13:36:47 CDT CPT-J0897 Prolia 60 mg 08:50:41 CDT CPT-98395 Abx/Therapy Injection 08:50:41 CDT CPT-08230 Bone Density 12:06:12 CDT CPT-43193 Bone Density 08:54:40 CDT CPT-OV Office Visit 15:37:02 CDT CPT-78729 Postop F/U Visit 15:47:49 CDT CPT-19318 Postop F/U Visit 15:21:02 CDT CPT-TCM Transitional Care Mgmt-High 07:52:27 CDT 20 20/06/01 CPT-17388 Venipuncture Draw Fee 13:51:18 CDT CPT-57492 Venipuncture Draw Fee 10:14:55 [employer] CPT-97109 Venipuncture Draw Fee 13:39:45 [employer] OPERATOR CPT-OV Office Visit 15:11:22 [employer] CPT-56226 Venipuncture Draw Fee 09:20:49 [employer] OPERATOR CPT-86337 Venipuncture Draw Fee 16:52:15 [employer] OPERATOR CPT-29576 Venipuncture Draw Fee 10:37:24 [employer] OPERATOR CPT-58089 Venipuncture Draw Fee 08:21:21 [employer] OPERATOR CPT-77285 Venipuncture Draw Fee 08:30:20 [employer] WE[employer] OPERATOR CPT-70416 Venipuncture Draw Fee 14:53:21 [employer] OPERATOR CPT-52999 Venipuncture Draw Fee 09:40:56 [employer] OPERATOR CPT-76547 Venipuncture Draw Fee 10:30:47 [employer] OPERATOR CPT-43883 Venipuncture Draw Fee 10:46:17 [employer] WE[employer] OPERATOR CPT-01758 Venipuncture Draw Fee 11:12:45 [employer] OPERATOR CPT-30970 Venipuncture Draw Fee 09:53:33 [employer] OPERATOR CPT-37498 Venipuncture Draw Fee 11:53:51 [employer] OPERATOR CPT-30128 Venipuncture Draw Fee 10:33:50 [employer] OPERATOR CPT-05317 Venipuncture Draw Fee 10:05:01 [employer] OPERATOR CPT-71337 Venipuncture Draw Fee 14:32:52 [employer] OPERATOR CPT-18111 Venipuncture Draw Fee 09:46:13 [employer] OPERATOR CPT-22483 Venipuncture Draw Fee 11:34:27 [employer] OPERATOR CPT-80636 Venipuncture Draw Fee 13:17:16 [employer] OPERATOR CPT-33786 Venipuncture Draw Fee 12:05:39 CDT CPT-77264 Venipuncture Draw Fee 12:49:12 CDT CPT-71548 Venipuncture Draw Fee 12:37:18 CDT CPT-04649 Venipuncture Draw Fee 10:57:11 CDT CPT-04141 Venipuncture Draw Fee 13:47:40 CDT CPT-23244 Venipuncture Draw Fee 10:02:17 CDT CPT-45535 TB Tubersol 17:32:32 CDT CPT-OV Office Visit 16:21:53 CDT CPT-OV Office Visit 15:49:22 CDT CPT-OV Office Visit 17:16:31 CDT CPT-OV Office Visit 10:43:31 CDT
--- OUTSIDE RECORDS SUMMARY | 2019-02-09 13:33 | XMS REPORT ---
Author Author [facility] Medic al StaffYUDITH Organization [facility] Address [address] [place], [place] [address] Phone [phone] Care Team Providers Care Under Trimmer Name Role Phone OSITO TAVERAS MD PP [phone] Summary purpose TRANSITION OF CARE AUTO GENERATION Chief Complaint and Reason for Visit Admit Diagnosis 1 CA IN SITU BREAST Problem list No authorized problems tracked for [...] diagnostic tests and/or laboratory data RESULTS Chemistry [id number]:48:00 Result Normal Range Units Sodium 139 134-145 [...] L 42 >= 60 mL/min /1.7 Hematology [id number]:48:00 Result Normal Range Units WBC L 4.6 4.8-10.8 103/uL RBC L 4.0 4.2-5.4 106/uL HGB 13.6 12.0-16.0 g/dl HCT 39.3 36.9-47.0 % MCV 98.7 81-99 FL MCH H 34.2 27-31 pg MCHC 34.6 33-37 g/dl RDW 13.4 11.5-15.5 % PLT 162 130-400 103/uL MPV 8.3 7.3-10.4 FL Neutro % 54.7 40-70 % Lymph % 31.7 20-40 % Riley % 9.3 0-10.0 % Eos % 4.1 0-7.0 % Baso % 0.2 0-2 % Neutro # 2.5 1.5-7.5 103/uL Lymph # 1.5 0.9-4.0 103/uL Riley # 0.4 0-0.8 103/uL Eos # 0.2 0-0.6 103/uL Baso # 0.0 0-0.1 103/uL Special Chemistry [id number]:48:00 Result Normal Range Units CEA 1.3 ng/mL Non-Smoker: <2.5 Smoker: <5.0 This test was performed using the Siemens chemiluminescent method. Values obtained from different assay methods cannot be used interchangeably. CEA levels, regardless of value, should not be interpreted as absolute evidence of the presence or absence of disease. TEST PERFORMED AT: [facility] [address] [place] [address] NIRAV GONZALEZ DO,MPH Radiology Results :48:00 Result Normal Range Units MPV 8.3 7.3-10.4 FL Reference Lab ([facility]) :48:00 Result Normal Range Units CEA 1.3 ng/mL Non-Smoker: <2.5 Smoker: <5.0 This test was performed using the Siemens chemiluminescent method. Values obtained from different assay methods cannot be used interchangeably. CEA levels, regardless of value, should not be interpreted as absolute evidence of the presence or absence of disease. TEST PERFORMED AT: [facility] [address] [place] [address] NIRAV GONZALEZ DO,MPH History of procedures Procedure Code Code Type Description Date Performed Performing Physician 10844 CPT-4 COMPLETE CBC W/AUTO DIFF WBC 12-13-2013 LEO DHAVAL 97263 CPT-4 COMPREHEN METABOLIC PANEL 12-13-2013 LEO DHAVAL 56417 CPT-4 CARCINOEMBRYONIC ANTIGEN 12-13-2013 K VIDA DHAVAL 85085 CPT-4 ASSAY OF MAGNESIUM 12-13-2013 LEO DHAVAL 71496 CPT-4 ASSAY OF PHOSPHORUS 12-13-2013 TARAS DHAVAL 43215 CPT-4 ROUTINE VENIPUNCTURE 12-13-2013 MADDY PUENTES Functional status No functional or [...]
--- OUTSIDE RECORDS SUMMARY | 2019-02-09 13:33 | XMS REPORT | Clinical Summary ---
Author Author Florecita Macario Organization [facility] Address Unknown Phone Unavailable Allergies, Adverse [...] (age-related) (natural) V49.8 1 Active [facility] Asymptomatic postmenopausal status (age- related) (natural) ABDOMINAL [...] mouth tw ice daily CALCIUM-VITAMIN D-VITAMIN K 72563028266 Active Hope landers MD PhD Active DAILY VALUE MULTIVITAMIN TABS 1 tab by mouth twice daily MULTIPLE VITAMIN 80162367343 Active Hope Benavidez MD PhD Active FISH OIL 306 MG CAPS 1 tab by mouth three times daily OMEGA-3 FATTY ACIDS 17337899172 Active Hope Benavidez MD PhD Active LUTEIN 10 MG TABS 1 tab daily LUTEIN 53961942557 Act cash Hope Benavidez MD PhD Active FLORANEX PACK 1 pack three times daily, for bowel health LACTOBACILLUS 61275796505 Active Hope Benavidez MD PhD Active LOMOTIL 2.5-0.025 MG TABS 1 tab by mouth prn DIPHENOXYLATE-ATROPINE 79251719452 Active Hope Benavidez MD PhD Active TRIAMTERENE-HCTZ 37.5-25 MG TABS 1 tab by mouth daily TRIAMTERENE-HCTZ 10959817458 Active Hope Benavidez MD PhD Acti ve IRON 325 (65 FE) MG TABS 1 tab daily FERROUS SULF ATE 70832773762 Active Hope Benavidez MD PhD Active MAGNESIUM GLUCONATE 250 MG TABS 1 tab tid MAGN ESIUM GLUCONATE 56767394794 Active Adam Yates MD Active ATENOLOL 50 MG TABS 1/2 tab q other day m-w- ATE NOLOL 97993011842 Active Adam Yates MD Active PROPRANOLOL HCL 80 MG TABS 1 tab tue. and thur. PROPRANOLOL HCL 97271512130 Active Adam Yates MD Active CYCLOBENZAPRINE HCL 10 MG TABS 1 tablet by mouth three times daily as needed for headaches CYCLOBENZAPRINE HCL 40323394835 No Longe r Active Adam Yates MD Active OMEPRAZOLE 20 MG CPDR 1 tablet by mouth daily for GERD OMEPRAZOLE 52156155978 No Longer Active Adam Yates MD A ctive ZOFRAN 8 MG TABS 1 tab by mouth every 12 hours prn 201 05/16/09 ONDANSETRON HCL 25226474738 No Longer Active Adam Yates MD Active PHENADOZ 25 MG SUPP 1 every 4 hrs. PRN PROMETHA ZINE HCL 39221922884 No Longer Active Adam Yates MD Active POTASSIUM CHLORIDE 20 MEQ PACK by mouth twice a day prn POTASSIUM CHLORIDE 53684507799 No Longer Active Adam Yates MD Active PROMETHAZINE HCL 25 MG TABS 1 Q. 4 hr. PRN PROM ETHAZINE HCL 71459767699 No Longer Active Adam Yates MD Active INNOPRAN XL 120 MG [id number] Take one by mouth daily 2 PROPRANOLOL HCL SR BEADS 00366842831 No Longer Active Adam Yates MD A ctive FLAGYL 500 MG TABS 1 pill by mouth three times daily, for diarrh ea METRONIDAZOLE 98461537692 No Longer Active Hope Benavidez MD PhD Active DYAZIDE 37.5-25 MG CAPS 1 qd TRIAMTERENE-HC TZ 66724946454 No Longer Active Hope Benavidez MD PhD Active PROZAC 20 MG CAPS 1 q d FLUOXETINE HCL 88954 133450 No Longer Active Hope Benavidez MD PhD Active SIMVASTATIN 40 MG TABS 1 qd SIMVASTATIN 004 87684754 No Longer Active Adam Yates MD Active MELOXICAM 15 MG TABS 1 qd MELOXICAM 5941937 5489 No Longer Active Adam Yates MD Active IMODIUM A-D 2 MG TABS 2 onset at diarrhea and prn. LOPERAMIDE HCL 30870771855 Active Hope Benavidez MD PhD Active EXCEDRIN EXTRA STRENGTH 250-250-65 MG TABS 1-2 q6h PRN headache 201 04/16/21 [id number] 87314666459 Active Hope Benavidez MD PhD Active FLAGYL 500 MG TABS 1 qid METRONIDAZOLE 00421 219993 No Longer Active Adam Yates MD Active LEVAQUIN 750 MG TABS 1 qd LEVOFLOXACIN 5486 5164636 No Longer Active Adam Yates MD Active ADULT ASPIRIN LOW STRENGTH 81 MG TBDP 1 qd A SPIRIN 55235979524 Active Hope Benavidez MD PhD Active LEVAQUIN 750 MG TABS 1 qd LEVAQUIN 750 MG T ABS 004572 LEVOFLOXACIN Inactive FLAGYL 500 MG TABS 1 qid FLAGYL 500 MG TABS 388466 METRONIDAZOLE Inactive MELOXICAM 15 MG TABS 1 qd MELOXICAM 15 MG T ABS 325373 MELOXICAM Inactive SIMVASTATIN 40 MG TABS 1 qd SIMVASTATIN 40 MG TABS 641399 SIMVASTATIN Inactive PROZAC 20 MG CAPS 1 q d PROZAC 20 MG CAPS 31 0385 FLUOXETINE HCL Inactive DYAZIDE 37.5-25 MG CAPS 1 qd DYAZIDE 37.5 -25 MG CAPS 141885 TRIAMTERENE-HCTZ Inactive INNOPRAN XL 120 MG [id number] Take one by mouth daily 2 INNOPRAN XL 120 MG [id number] PROPRANOLOL HCL SR BEADS Inactive PROMETHAZINE HCL 25 MG TABS 1 Q. 4 hr. PRN PROMETHAZINE HCL 25 MG TABS 961453 PROMETHAZINE HCL Inactive POTASSIUM CHLORIDE 20 MEQ PACK by mouth twice a day prn POTASSIUM CHLORIDE 20 MEQ PACK 764408 POTASSIUM CHLORIDE Inactive PHENADOZ 25 MG SUPP 1 every 4 hrs. PRN PHENADOZ 2 5 MG SUPP 638898 PROMETHAZINE HCL Inactive ZOFRAN 8 MG TABS 1 tab by mouth every 12 hours prn 201 05/16/09 ZOFRAN 8 MG TABS 779834 ONDANSETRON HCL Inactive OMEPRAZOLE 20 MG CPDR 1 tablet by mouth daily for GERD OMEPRAZOLE 20 MG CPDR 427985 OMEPRAZOLE Inactive CYCLOBENZAPRINE HCL 10 MG TABS 1 tablet by mouth three times daily as needed for headaches CYCLOBENZAPRINE HCL 10 MG TABS 216572 CYCLOBENZAPRINE HCL Inactive FLAGYL 500 MG TABS 1 pill by mouth three times daily, for diarrh ea FLAGYL 500 MG TABS 271716 METRONIDAZOLE Inactive Advance Directives Directive Description Start [...] - Chem istry sodium, serum 137 mmol/L 216-489 9411/11/01 potassium, serum 3.7 mmol/L 3.5-5.2 chloride, serum 100 mmol/L 98-107 carbon dioxide, venous blood 31.8 mmol/L 21.0-32 .0 blood glucose 98 mg/dL 65-110 calcium, serum 8.6 mg/dL 8.5-10.1 urea nitrogen, blood 23 mg/dL 7-18 creatinine, serum 1.50 mg/dL 0.60-1.30 sodium, serum 136 mmol/L 147-156 2375/05/02 potassium, serum 4.1 mmol/L 3.5-5.2 chloride, serum [...] 11 .6-14.8 platelet count 133 10^3/MM^3 10*3/mm3 879-312 3231/01/17 leukocyte count, blood 3.1 10^3/MM^3 10*3/mm3 4.6-10.2 [...] 11 .6-14.8 platelet count 22 10^3/MM^3 10*3/mm3 471-602 7007/11/19 leukocyte count, blood 10.4 10^3/MM^3 10*3/mm3 4.6-10.2 [...] Verified By Repeat Analysis 10^3/mm ^3 10*3/mm3 954-143 5795/12/10 leukocyte count, blood 7.8 10^3/MM^3 10*3/mm3 4.6-10.2 [...] Panel - Chemistry sodium, serum 139 mmol/L 921-912 7027/12/03 potassium, serum 3.7 mmol/L 3.5-5.2 chloride, serum [...] 0.40 mg/dL 0.00-1.00 sodium, serum 142 mmol/L 897-703 7947/01/03 potassium, serum 3.4 mmol/L 3.5-5.2 chloride, serum 101 mmol/L 98-107 carbon dioxide, venous blood 31.9 mmol/L 21.0-32 .0 blood glucose 98 mg/dL 65-110 urea nitrogen, blood 23 mg/dL 7-18 creatinine, serum 1.60 mg/dL 0.60-1.30 alanine aminotransferase (SGPT), serum 17 U/L 78 aspartate aminotransferase (SGOT), serum 21 U/L 15-37 alkaline phosphatase, serum 163 U/L 50-136 calcium, serum 8.5 mg/dL 8.5-10.1 bilirubin, serum, total 0.50 mg/dL 0.00-1.00 sodium, serum 137 mmol/L 747-210 6240/10/01 potassium, serum 3.5 mmol/L 3.5-5.2 chloride, serum [...] 0.60 mg/dL 0.00-1.00 sodium, serum 136 mmol/L 575-637 0086/10/08 potassium, serum 3.1 mmol/L 3.5-5.2 chloride, serum [...] 0.60 mg/dL 0.00-1.00 sodium, serum 139 mmol/L 060-690 8692/10/17 potassium, serum 3.1 mmol/L 3.5-5.2 chloride, serum [...] 0.30 mg/dL 0.00-1.00 sodium, serum 140 mmol/L 580-180 0676/01/06 potassium, serum 3.4 mmol/L 3.5-5.2 chloride, serum [...] 0.40 mg/dL 0.00-1.00 sodium, serum 139 mmol/L 593-005 6809/01/21 potassium, serum 3.4 mmol/L 3.5-5.2 chloride, serum [...] 0.40 mg/dL 0.00-1.00 sodium, serum 138 mmol/L 887-486 5646/01/28 potassium, serum 3.2 mmol/L 3.5-5.2 chloride, serum [...] 0.40 mg/dL 0.00-1.00 sodium, serum 140 mmol/L 203-369 9317/02/04 potassium, serum 3.6 mmol/L 3.5-5.2 chloride, serum [...] 0.70 mg/dL 0.00-1.00 sodium, serum 136 mmol/L 870-089 4809/02/11 potassium, serum 3.1 mmol/L 3.5-5.2 chloride, serum [...] 0.50 mg/dL 0.00-1.00 sodium, serum 138 mmol/L 542-464 1849/08/14 potassium, serum 4.0 mmol/L 3.5-5.2 chloride, serum 100 mmol/L 98-107 carbon dioxide, venous blood 28.7 mmol/L 21.0-32 .0 blood glucose 87 mg/dL 65-110 urea nitrogen, blood 25 mg/dL 7- creatinine, serum 1.20 mg/dL 0.60-1.30 alanine aminotransferase (SGPT), serum 38 U/L aspartate aminotransferase (SGOT), serum 32 U/L 15-37 alkaline phosphatase, serum 198 U/L 50-136 calcium, serum 9.8 mg/dL 8.5-10.1 bilirubin, serum, total 0.40 mg/dL 0.00-1.00 sodium, serum 136 mmol/L 163-657 1492/04/03 potassium, serum 3.7 mmol/L 3.5-5.2 chloride, serum [...] 0.40 mg/dL 0.00-1.00 sodium, serum 139 mmol/L 321-914 7957/02/18 potassium, serum 3.6 mmol/L 3.5-5.2 chloride, serum [...] 11 .6-14.8 platelet count 246 10^3/MM^3 10*3/mm3 280-793 8231/08/14 leukocyte count, blood 5.8 10^3/MM^3 10*3/mm3 4.6-10.2 [...] 11 .6-14.8 platelet count 193 10^3/MM^3 10*3/mm3 533-308 1898/02/18 leukocyte count, blood 4.0 10^3/MM^3 10*3/mm3 4.6-10.2 [...] 11 .6-14.8 platelet count 134 10^3/MM^3 10*3/mm3 054-252 0444/02/11 leukocyte count, blood 4.8 10^3/MM^3 10*3/mm3 4.6-10.2 [...] 11 .6-14.8 platelet count 102 10^3/MM^3 10*3/mm3 931-418 2259/02/04 leukocyte count, blood 3.6 10^3/MM^3 10*3/mm3 4.6-10.2 [...] 11 .6-14.8 platelet count 70 10^3/MM^3 10*3/mm3 788-426 4006/01/28 leukocyte count, blood 4.2 10^3/MM^3 10*3/mm3 4.6-10.2 [...] 11 .6-14.8 platelet count 73 10^3/MM^3 10*3/mm3 861-747 5104/01/03 leukocyte count, blood 8.1 10^3/MM^3 10*3/mm3 4.6-10.2 [...] 11 .6-14.8 platelet count 96 10^3/MM^3 10*3/mm3 840-188 9634/01/21 leukocyte count, blood 4.9 10^3/MM^3 10*3/mm3 4.6-10.2 [...] .6-14.8 platelet count 38 recounted 10^3/mm^3 10*3/mm3 102-137 8716/10/08 leukocyte count, blood 2.9 10^3/MM^3 10*3/mm3 4.6-10.2 [...] 11 .6-14.8 platelet count 229 10^3/MM^3 10*3/mm3 870-991 1848/10/17 leukocyte count, blood 12.0 10^3/MM^3 10*3/mm3 4.6-10.2 [...] 11 .6-14.8 platelet count 232 10^3/MM^3 10*3/mm3 938-294 3983/10/01 leukocyte count, blood 8.3 10^3/MM^3 10*3/mm3 4.6-10.2 [...] 11 .6-14.8 platelet count 378 10^3/MM^3 10*3/mm3 325-808 9844/01/06 leukocyte count, blood 7.6 10^3/MM^3 10*3/mm3 4.6-10.2 [...] 11 .6-14.8 platelet count 132 10^3/MM^3 10*3/mm3 425-545 8648/12/03 leukocyte count, blood 8.2 10^3/MM^3 10*3/mm3 4.6-10.2 [...] Diff/Morphology - Chemistry sodium, serum 141 mmol/L 420-115 6513/11/25 potassium, serum 3.9 mmol/L 3.5-5.2 chloride, serum [...] 0.50 mg/dL 0.00-1.00 sodium, serum 137 mmol/L 094-419 8348/11/12 potassium, serum 3.2 mmol/L 3.5-5.2 chloride, serum [...] 0.40 mg/dL 0.00-1.00 sodium, serum 140 mmol/L 813-991 9549/12/17 potassium, serum 3.3 mmol/L 3.5-5.2 chloride, serum [...] 0.40 mg/dL 0.00-1.00 sodium, serum 138 mmol/L 504-590 1942/12/24 potassium, serum 3.7 mmol/L 3.5-5.2 chloride, serum [...] 0.50 mg/dL 0.00-1.00 sodium, serum 135 mmol/L 108-939 5822/10/22 potassium, serum 3.0 mmol/L 3.5-5.2 chloride, serum [...] 0.50 mg/dL 0.00-1.00 sodium, serum 138 mmol/L 957-939 7908/11/05 potassium, serum 3.9 mmol/L 3.5-5.2 chloride, serum [...] 0.40 mg/dL 0.00-1.00 sodium, serum 128 mmol/L 672-480 9750/10/29 potassium, serum 2.6 mmol/L 3.5-5.2 chloride, serum [...] 0.50 mg/dL 0.00-1.00 sodium, serum 141 mmol/L 654-436 9404/01/14 potassium, serum 3.9 mmol/L 3.5-5.2 chloride, serum [...] 11 .6-14.8 platelet count 22 10^3/MM^3 10*3/mm3 090-510 5141/10/22 leukocyte count, blood 14.7 10^3/MM^3 10*3/mm3 4.6-10.2 [...] 11 .6-14.8 platelet count 428 10^3/MM^3 10*3/mm3 787-512 0081/11/05 leukocyte count, blood 16.4 10^3/MM^3 10*3/mm3 4.6-10.2 [...] 11 .6-14.8 platelet count 215 10^3/MM^3 10*3/mm3 017-903 3834/11/12 leukocyte count, blood 12.1 10^3/MM^3 10*3/mm3 4.6-10.2 [...] 11 .6-14.8 platelet count 157 10^3/MM^3 10*3/mm3 806-603 9512/10/29 leukocyte count, blood 26.3 10^3/MM^3 10*3/mm3 4.6-10.2 [...] 11 .6-14.8 platelet count 268 10^3/MM^3 10*3/mm3 435-011 9730/12/24 leukocyte count, blood 14.0 10^3/MM^3 10*3/mm3 4.6-10.2 [...] 11 .6-14.8 platelet count 66 10^3/MM^3 10*3/mm3 895-693 8670/11/25 leukocyte count, blood 21.1 10^3/MM^3 10*3/mm3 4.6-10.2 [...] 11 .6-14.8 platelet count 46 10^3/MM^3 10*3/mm3 975-978 6317/12/17 leukocyte count, blood 18.6 10^3/MM^3 10*3/mm3 4.6-10.2 [...] - Chem istry sodium, serum 141 mmol/L 333-295 3290/11/19 potassium, serum 3.9 mmol/L 3.5-5.2 chloride, serum [...] 0.50 mg/dL 0.00-1.00 sodium, serum 142 mmol/L 355-516 1620/12/10 potassium, serum 3.9 mmol/L 3.5-5.2 chloride, serum [...] Diff/Morphology - Chemistry sodium, serum 142 mmol/L 131-960 2231/12/31 potassium, serum 3.6 mmol/L 3.5-5.2 chloride, serum [...] Panel - Chemistry cholesterol, serum 209 mg/dL 118-377 3109/09/11 triglyceride, serum, fasting 113 mg/dL 30-200 HDL cholesterol, serum 50 mg/dL 32-96 LDL cholesterol, serum 136 mg/dL 0-130 Encounters Code Encounter Date Provider Facility CPT-53097 Level 3 New Patient 01:46:11 [facility] Hope landers MD PhD [facility] Procedures Code Procedure Name Date Entry Date Standard Desc ription CPT-OV Office Visit 15:37:02 CDT CPT-13200 Postop F/U Visit 15:47:49 CDT CPT-90123 Postop F/U Visit 15:21:02 CDT CPT-[facility] Transitional Care Mgmt-High 07:52:27 CDT 20 20/06/01 CPT-71657 Venipuncture Draw Fee 13:51:18 CDT CPT-02405 Venipuncture Draw Fee 10:14:55 [facility] CPT-19911 Venipuncture Draw Fee 13:39:45 [facility] CPT-OV Office Visit 15:11:22 [facility] CPT-13999 Venipuncture Draw Fee 09:20:49 [facility] CPT-02672 Venipuncture Draw Fee 16:52:15 [facility] CPT-80946 Venipuncture Draw Fee 10:37:24 [facility] CPT-02073 Venipuncture Draw Fee 08:21:21 [facility] CPT-89153 Venipuncture Draw Fee 08:30:20 [facility] CPT-62699 Venipuncture Draw Fee 14:53:21 [facility] CPT-72651 Venipuncture Draw Fee 09:40:56 [facility] CPT-42421 Venipuncture Draw Fee 10:30:47 [facility] CPT-81999 Venipuncture Draw Fee 10:46:17 [facility] CPT-95123 Venipuncture Draw Fee 11:12:45 [facility] CPT-42495 Venipuncture Draw Fee 09:53:33 [facility] CPT-94843 Venipuncture Draw Fee 11:53:51 [facility] CPT-75703 Venipuncture Draw Fee 10:33:50 [facility] CPT-68240 Venipuncture Draw Fee 10:05:01 [facility] CPT-07044 Venipuncture Draw Fee 14:32:52 [facility] CPT-83345 Venipuncture Draw Fee 09:46:13 [facility] CPT-73013 Venipuncture Draw Fee 11:34:27 [facility] CPT-59905 Venipuncture Draw Fee 13:17:16 [facility] CPT-54236 Venipuncture Draw Fee 12:05:39 CDT CPT-95643 Venipuncture Draw Fee 12:49:12 CDT CPT-68324 Venipuncture Draw Fee 12:37:18 CDT CPT-76799 Venipuncture Draw Fee 10:57:11 CDT CPT-14508 Venipuncture Draw Fee 13:47:40 CDT CPT-35443 Venipuncture Draw Fee 10:02:17 CDT CPT-41455 TB Tubersol 17:32:32 CDT CPT-OV Office Visit 16:21:53 CDT CPT-OV Office Visit 15:49:22 CDT CPT-OV Office Visit 17:16:31 CDT CPT-OV Office Visit 10:43:31 CDT
--- OUTSIDE RECORDS SUMMARY | 2019-02-09 13:34 | XMS REPORT | Clinical Summary ---
Author Author Renaldo, Florecita Munoz Organization [facility] Address Unknown Phone Unavailable Allergies, Adverse [...] cohn MD PhD UNSPECIFIED VENOUS INSUFFICIENCY ICD-459.81 [place] ctive Adam Yates MD ADENOCARCINOMA, ASCENDING COLON ICD-153.6 Inac tive Hope Benavidez MD PhD Hyperkalemia ICD-276.7 Inactive Hope Benavidez MD PhD Health maintenance exam ICD-V70.0 Bam Cooperden MD Aftercare following surgery of the teeth,oral cavity a nd digestive system, NEC ICD-V58.75 Inactive Adam Yates MD Colon cancer ICD-153.9 Inactive Adam luna MD Medication List Medication Instructions Start Date Stop Date Generic Name NDC Status Provider Patient Instruction CVS IRON 325 (65 FE) MG TABS 1 qd FERROUS BHATTI LFATE 99133373822 Active Adam Yates MD Active MAGNESIUM GLUCONATE 250 MG TABS 1 tab tid MAGN ESIUM GLUCONATE 61193821087 Active Adam Yates MD Active ATENOLOL 50 MG TABS 1/2 tab q other day -w- ATE NOLOL 36499567076 Active Adam Yates MD Active PROPRANOLOL HCL 80 MG TABS 1 tab tue. and thur. PROPRANOLOL HCL 09162246936 Active Adam Yates MD Active CYCLOBENZAPRINE HCL 10 MG TABS 1 tablet by mouth three times daily as needed for headaches CYCLOBENZAPRINE HCL 32649139271 No Longe r Active Adam Yates MD Active OMEPRAZOLE 20 MG CPDR 1 tablet by mouth daily for GERD OMEPRAZOLE 08241411202 No Longer Active Adam Yates MD A ctive ZOFRAN 8 MG TABS 1 tab by mouth every 12 hours prn 201 05/16/09 ONDANSETRON HCL 01907348015 No Longer Active Adam Yates MD Active PHENADOZ 25 MG SUPP 1 every 4 hrs. PRN PROMETHA ZINE HCL 47195197202 No Longer Active Adam Yates MD Active POTASSIUM CHLORIDE 20 MEQ PACK by mouth twice a day prn POTASSIUM CHLORIDE 73924883550 No Longer Active Adam Yates MD Active PROMETHAZINE HCL 25 MG TABS 1 Q. 4 hr. PRN PROM ETHAZINE HCL 55183660055 No Longer Active Adam Yates MD Active INNOPRAN XL 120 MG [id number] Take one by mouth daily 2 PROPRANOLOL HCL SR BEADS 54050424545 No Longer Active Adam Yates MD A ctive FLAGYL 500 MG TABS 1 pill by mouth three times daily, for diarrh ea METRONIDAZOLE 03110247832 No Longer Active Hpoe Benavidez MD PhD Active DYAZIDE 37.5-25 MG CAPS 1 qd TRIAMTERENE-HC TZ 93644877858 No Longer Active Hope Benavidez MD PhD Active PROZAC 20 MG CAPS 1 q d FLUOXETINE HCL 95040 620176 No Longer Active Hope Benavidez MD PhD Active SIMVASTATIN 40 MG TABS 1 qd SIMVASTATIN 004 71958846 No Longer Active Adam Yates MD Active MELOXICAM 15 MG TABS 1 qd MELOXICAM 5596558 7276 No Longer Active Adam Yates MD Active IMODIUM A-D 2 MG TABS 2 onset at diarrhea and prn. LOPERAMIDE HCL 79506048429 Active Hope Benavidez MD PhD Active EXCEDRIN EXTRA STRENGTH 250-250-65 MG TABS 1-2 q6h PRN headache 201 04/16/21 LYREAIA-[id number]-BGCQAMEH 50007310852 Active Hope Benavidez MD PhD Active FLAGYL 500 MG TABS 1 qid METRONIDAZOLE 19310 895948 No Longer Active Adam Yates MD Active LEVAQUIN 750 MG TABS 1 qd LEVOFLOXACIN 5486 8423377 No Longer Active Adam Yates MD Active ADULT ASPIRIN LOW STRENGTH 81 MG TBDP 1 qd A SPIRIN 62767709621 Active Hope Benavidez MD PhD Active LEVAQUIN 750 MG TABS 1 qd LEVAQUIN 750 MG T ABS 814083 LEVOFLOXACIN Inactive FLAGYL 500 MG TABS 1 qid FLAGYL 500 MG TABS 052993 METRONIDAZOLE Inactive MELOXICAM 15 MG TABS 1 qd MELOXICAM 15 MG T ABS 048425 MELOXICAM Inactive SIMVASTATIN 40 MG TABS 1 qd SIMVASTATIN 40 MG TABS 294820 SIMVASTATIN Inactive PROZAC 20 MG CAPS 1 q d PROZAC 20 MG CAPS 31 0385 FLUOXETINE HCL Inactive DYAZIDE 37.5-25 MG CAPS 1 qd DYAZIDE 37.5 -25 MG CAPS 155458 TRIAMTERENE-HCTZ Inactive INNOPRAN XL 120 MG [id number] Take one by mouth daily 2 INNOPRAN XL 120 MG ON10I-SFT PROPRANOLOL HCL SR BEADS Inactive PROMETHAZINE HCL 25 MG TABS 1 Q. 4 hr. PRN PROMETHAZINE HCL 25 MG TABS 194215 PROMETHAZINE HCL Inactive POTASSIUM CHLORIDE 20 MEQ PACK by mouth twice a day prn POTASSIUM CHLORIDE 20 MEQ PACK 235876 POTASSIUM CHLORIDE Inactive PHENADOZ 25 MG SUPP 1 every 4 hrs. PRN PHENADOZ 2 5 MG SUPP 976368 PROMETHAZINE HCL Inactive ZOFRAN 8 MG TABS 1 tab by mouth every 12 hours prn 201 05/16/09 ZOFRAN 8 MG TABS 263888 ONDANSETRON HCL Inactive OMEPRAZOLE 20 MG CPDR 1 tablet by mouth daily for GERD OMEPRAZOLE 20 MG CPDR 418437 OMEPRAZOLE Inactive CYCLOBENZAPRINE HCL 10 MG TABS 1 tablet by mouth three times daily as needed for headaches CYCLOBENZAPRINE HCL 10 MG TABS 469745 CYCLOBENZAPRINE HCL Inactive FLAGYL 500 MG TABS 1 pill by mouth three times daily, for diarrh ea FLAGYL 500 MG TABS 195249 METRONIDAZOLE Inactive Advance Directives Directive Description Start [...] - Chem istry sodium, serum 137 mmol/L 394-120 7280/11/01 potassium, serum 3.7 mmol/L 3.5-5.2 chloride, serum 100 mmol/L 98-107 carbon dioxide, venous blood 31.8 mmol/L 21.0-32 .0 blood glucose 98 mg/dL 65-110 calcium, serum 8.6 mg/dL 8.5-10.1 urea nitrogen, blood 23 mg/dL 7-18 creatinine, serum 1.50 mg/dL 0.60-1.30 sodium, serum 136 mmol/L 664-838 8132/05/02 potassium, serum 4.1 mmol/L 3.5-5.2 chloride, serum 99 mmol/L 98-107 carbon dioxide, venous blood 30.7 mmol/L 21.0-32 .0 blood glucose 79 mg/dL 65-110 calcium, serum 8.7 mg/dL 8.5-10.1 urea nitrogen, blood 11 mg/dL 7-18 creatinine, serum 1.10 mg/dL 0.60-1.30 Lab Report: [facility] - Chemistry sodium, serum 141 mmol/L potassium, serum 4.2 mmol/L blood glucose 66 mg/dL creatinine, serum 1.16 mg/dL Lab Report: CBC W/ DIFF, [facility] - Chemistry sodium, serum 137 mmol/L potassium, serum 3.8 mmol/L blood glucose 79 mg/dL creatinine, serum 1.02 mg/dL magnesium, serum 1.2 mg/dL Lab Report: [facility] - Hematology leukocyte count, [...] 11 .6-14.8 platelet count 133 10^3/MM^3 10*3/mm3 594-762 2701/01/17 leukocyte count, blood 3.1 10^3/MM^3 10*3/mm3 4.6-10.2 [...] 11 .6-14.8 platelet count 22 10^3/MM^3 10*3/mm3 902-485 7657/11/19 leukocyte count, blood 10.4 10^3/MM^3 10*3/mm3 4.6-10.2 [...] Verified By Repeat Analysis 10^3/mm ^3 10*3/mm3 947-938 3592/12/10 leukocyte count, blood 7.8 10^3/MM^3 10*3/mm3 4.6-10.2 [...] Panel - Chemistry sodium, serum 139 mmol/L 717-781 1438/12/03 potassium, serum 3.7 mmol/L 3.5-5.2 chloride, serum [...] 0.40 mg/dL 0.00-1.00 sodium, serum 142 mmol/L 794-308 6040/01/03 potassium, serum 3.4 mmol/L 3.5-5.2 chloride, serum [...] 0.50 mg/dL 0.00-1.00 sodium, serum 137 mmol/L 582-539 8962/10/01 potassium, serum 3.5 mmol/L 3.5-5.2 chloride, serum [...] 0.60 mg/dL 0.00-1.00 sodium, serum 136 mmol/L 013-214 9702/10/08 potassium, serum 3.1 mmol/L 3.5-5.2 chloride, serum [...] 0.60 mg/dL 0.00-1.00 sodium, serum 139 mmol/L 411-278 9029/10/17 potassium, serum 3.1 mmol/L 3.5-5.2 chloride, serum [...] 0.30 mg/dL 0.00-1.00 sodium, serum 140 mmol/L 719-324 8420/01/06 potassium, serum 3.4 mmol/L 3.5-5.2 chloride, [...] 0.40 mg/dL 0.00-1.00 sodium, serum 139 mmol/L 035-121 2897/01/21 potassium, serum 3.4 mmol/L 3.5-5.2 chloride, serum [...] 0.40 mg/dL 0.00-1.00 sodium, serum 138 mmol/L 959-250 6973/01/28 potassium, serum 3.2 mmol/L 3.5-5.2 chloride, serum [...] 0.40 mg/dL 0.00-1.00 sodium, serum 140 mmol/L 459-862 1699/02/04 potassium, serum 3.6 mmol/L 3.5-5.2 chloride, serum [...] 0.70 mg/dL 0.00-1.00 sodium, serum 136 mmol/L 082-781 5203/02/11 potassium, serum 3.1 mmol/L 3.5-5.2 chloride, serum [...] 0.50 mg/dL 0.00-1.00 sodium, serum 138 mmol/L 650-410 7833/08/14 potassium, serum 4.0 mmol/L 3.5-5.2 chloride, serum [...] 0.40 mg/dL 0.00-1.00 sodium, serum 136 mmol/L 484-664 4344/04/03 potassium, serum 3.7 mmol/L 3.5-5.2 chloride, serum [...] 0.40 mg/dL 0.00-1.00 sodium, serum 139 mmol/L 460-040 5701/02/18 potassium, serum 3.6 mmol/L 3.5-5.2 chloride, serum [...] 11 .6-14.8 platelet count 246 10^3/MM^3 10*3/mm3 380-599 6645/08/14 leukocyte count, blood 5.8 10^3/MM^3 10*3/mm3 4.6-10.2 [...] 11 .6-14.8 platelet count 193 10^3/MM^3 10*3/mm3 612-565 1473/02/18 leukocyte count, blood 4.0 10^3/MM^3 10*3/mm3 4.6-10.2 [...] 11 .6-14.8 platelet count 134 10^3/MM^3 10*3/mm3 918-618 8394/02/11 leukocyte count, blood 4.8 10^3/MM^3 10*3/mm3 4.6-10.2 [...] 11 .6-14.8 platelet count 102 10^3/MM^3 10*3/mm3 317-088 2858/02/04 leukocyte count, blood 3.6 10^3/MM^3 10*3/mm3 4.6-10.2 [...] 11 .6-14.8 platelet count 70 10^3/MM^3 10*3/mm3 254-417 2365/01/28 leukocyte count, blood 4.2 10^3/MM^3 10*3/mm3 4.6-10.2 [...] 11 .6-14.8 platelet count 73 10^3/MM^3 10*3/mm3 439-993 9730/01/03 leukocyte count, blood 8.1 10^3/MM^3 10*3/mm3 4.6-10.2 [...] 11 .6-14.8 platelet count 96 10^3/MM^3 10*3/mm3 123-681 9752/01/21 leukocyte count, blood 4.9 10^3/MM^3 10*3/mm3 4.6-10.2 [...] .6-14.8 platelet count 38 recounted 10^3/mm^3 10*3/mm3 873-314 1488/10/08 leukocyte count, blood 2.9 10^3/MM^3 10*3/mm3 4.6-10.2 [...] 11 .6-14.8 platelet count 229 10^3/MM^3 10*3/mm3 549-418 7651/10/17 leukocyte count, blood 12.0 10^3/MM^3 10*3/mm3 4.6-10.2 [...] 11 .6-14.8 platelet count 232 10^3/MM^3 10*3/mm3 568-457 0179/10/01 leukocyte count, blood 8.3 10^3/MM^3 10*3/mm3 4.6-10.2 [...] 11 .6-14.8 platelet count 378 10^3/MM^3 10*3/mm3 633-520 0082/01/06 leukocyte count, blood 7.6 10^3/MM^3 10*3/mm3 4.6-10.2 [...] 11 .6-14.8 platelet count 132 10^3/MM^3 10*3/mm3 234-312 5834/12/03 leukocyte count, blood 8.2 10^3/MM^3 10*3/mm3 4.6-10.2 [...] Diff/Morphology - Chemistry sodium, serum 141 mmol/L 316-340 2221/11/25 potassium, serum 3.9 mmol/L 3.5-5.2 chloride, serum [...] 0.50 mg/dL 0.00-1.00 sodium, serum 137 mmol/L 821-177 9790/11/12 potassium, serum 3.2 mmol/L 3.5-5.2 chloride, serum [...] 0.40 mg/dL 0.00-1.00 sodium, serum 140 mmol/L 343-391 7235/12/17 potassium, serum 3.3 mmol/L 3.5-5.2 chloride, serum [...] 0.40 mg/dL 0.00-1.00 sodium, serum 138 mmol/L 021-821 6678/12/24 potassium, serum 3.7 mmol/L 3.5-5.2 chloride, serum 100 mmol/L 98-107 carbon dioxide, venous blood 27.8 mmol/L 21.0-32 .0 blood glucose 87 mg/dL 65-110 urea nitrogen, blood 25 mg/dL 7-18 creatinine, serum 1.30 mg/dL 0.60-1.30 alanine aminotransferase (SGPT), serum 24 U/L 12- aspartate aminotransferase (SGOT), serum 39 U/L 15-37 alkaline phosphatase, serum 256 U/L 50-136 calcium, serum 8.6 mg/dL 8.5-10.1 bilirubin, serum, total 0.50 mg/dL 0.00-1.00 sodium, serum 135 mmol/L 252-035 2535/10/22 potassium, serum 3.0 mmol/L 3.5-5.2 chloride, serum [...] 0.50 mg/dL 0.00-1.00 sodium, serum 138 mmol/L 571-332 7064/11/05 potassium, serum 3.9 mmol/L 3.5-5.2 chloride, serum [...] 0.40 mg/dL 0.00-1.00 sodium, serum 128 mmol/L 482-702 4049/10/29 potassium, serum 2.6 mmol/L 3.5-5.2 chloride, serum [...] 0.50 mg/dL 0.00-1.00 sodium, serum 141 mmol/L 577-694 7932/01/14 potassium, serum 3.9 mmol/L 3.5-5.2 chloride, serum [...] 11 .6-14.8 platelet count 22 10^3/MM^3 10*3/mm3 898-732 7935/10/22 leukocyte count, blood 14.7 10^3/MM^3 10*3/mm3 4.6-10.2 [...] 11 .6-14.8 platelet count 428 10^3/MM^3 10*3/mm3 984-915 4672/11/05 leukocyte count, blood 16.4 10^3/MM^3 10*3/mm3 4.6-10.2 [...] 11 .6-14.8 platelet count 215 10^3/MM^3 10*3/mm3 357-806 8837/11/12 leukocyte count, blood 12.1 10^3/MM^3 10*3/mm3 4.6-10.2 [...] 11 .6-14.8 platelet count 157 10^3/MM^3 10*3/mm3 064-400 6059/10/29 leukocyte count, blood 26.3 10^3/MM^3 10*3/mm3 4.6-10.2 [...] 11 .6-14.8 platelet count 268 10^3/MM^3 10*3/mm3 134-432 9103/12/24 leukocyte count, blood 14.0 10^3/MM^3 10*3/mm3 4.6-10.2 [...] 11 .6-14.8 platelet count 66 10^3/MM^3 10*3/mm3 968-513 1791/11/25 leukocyte count, blood 21.1 10^3/MM^3 10*3/mm3 4.6-10.2 [...] 11 .6-14.8 platelet count 46 10^3/MM^3 10*3/mm3 718-856 4325/12/17 leukocyte count, blood 18.6 10^3/MM^3 10*3/mm3 4.6-10.2 [...] - Chem istry sodium, serum 141 mmol/L 094-331 6690/11/19 potassium, serum 3.9 mmol/L 3.5-5.2 chloride, serum [...] 0.50 mg/dL 0.00-1.00 sodium, serum 142 mmol/L 881-905 3825/12/10 potassium, serum 3.9 mmol/L 3.5-5.2 chloride, serum [...] Diff/Morphology - Chemistry sodium, serum 142 mmol/L 190-597 5413/12/31 potassium, serum 3.6 mmol/L 3.5-5.2 chloride, serum [...] Panel - Chemistry cholesterol, serum 209 mg/dL 267-539 3384/09/11 triglyceride, serum, fasting 113 mg/dL 30-200 HDL cholesterol, serum 50 mg/dL 32-96 LDL cholesterol, serum 136 mg/dL 0-130 Encounters Code Encounter Date Provider Facility CPT-74998 Level 3 New Patient 01:46:11 [facility] Hope landers MD PhD [facility] Procedures Code Procedure Name Date Entry Date Standard Desc ription CPT-OV Office Visit 15:37:02 CDT CPT-66396 Postop F/U Visit 15:47:49 CDT CPT-44877 Postop F/U Visit 15:21:02 [facility]T [facility] 07:52:27 CDT 20 20/06/01 CPT-54497 Venipuncture Draw Fee 13:51:18 CDT CPT-63402 Venipuncture Draw Fee 10:14:55 [facility] CPT-25400 Venipuncture Draw Fee 13:39:45 [facility] CPT-OV Office Visit 15:11:22 [facility] CPT-01107 Venipuncture Draw Fee 09:20:49 [facility] CPT-83879 Venipuncture Draw Fee 16:52:15 [facility] CPT-86093 Venipuncture Draw Fee 10:37:24 [facility] CPT-16903 Venipuncture Draw Fee 08:21:21 [facility] CPT-32425 Venipuncture Draw Fee 08:30:20 [facility] CPT-30736 Venipuncture Draw Fee 14:53:21 [facility] CPT-73679 Venipuncture Draw Fee 09:40:56 [facility] CPT-79316 Venipuncture Draw Fee 10:30:47 [facility] CPT-67643 Venipuncture Draw Fee 10:46:17 [facility] CPT-04999 Venipuncture Draw Fee 11:12:45 [facility] CPT-86946 Venipuncture Draw Fee 09:53:33 [facility] CPT-43992 Venipuncture Draw Fee 11:53:51 [facility] CPT-08898 Venipuncture Draw Fee 10:33:50 [facility] CPT-16151 Venipuncture Draw Fee 10:05:01 [facility] CPT-47818 Venipuncture Draw Fee 14:32:52 [facility] CPT-80087 Venipuncture Draw Fee 09:46:13 [facility] CPT-99708 Venipuncture Draw Fee 11:34:27 [facility] CPT-72134 Venipuncture Draw Fee 13:17:16 [facility] CPT-11274 Venipuncture Draw Fee 12:05:39 CDT CPT-59885 Venipuncture Draw Fee 12:49:12 CDT CPT-28034 Venipuncture Draw Fee 12:37:18 CDT CPT-25830 Venipuncture Draw Fee 10:57:11 CDT CPT-78707 Venipuncture Draw Fee 13:47:40 CDT CPT-74818 Venipuncture Draw Fee 10:02:17 CDT CPT-68599 TB Tubersol 17:32:32 CDT CPT-OV Office Visit 16:21:53 CDT CPT-OV Office Visit 15:49:22 CDT CPT-OV Office Visit 17:16:31 CDT CPT-OV Office Visit 10:43:31 CDT
--- OUTSIDE RECORDS SUMMARY | 2019-02-09 13:34 | XMS REPORT ---
Author Author [facility] YUD[facility] Organization [facility] Address [address] [place] [id number] Phone [phone] Care Team Providers Care Manager Hris Name Role Phone OSITO TAVERAS MD PP [phone] Summary purpose TRANSITION OF CARE AUTO GENERATION [...]
--- OUTSIDE RECORDS SUMMARY | 2019-02-09 13:34 | XMS REPORT | Clinical Summary ---
Author Author Renaldo, Florecita Munoz Organization [facility] Address Unknown Phone Allergies, Adverse Reactions, [...] a nd digestive system, NEC V58.75 Active Aadm Yates MD Af [facility]are following surgery [...] MG CAPS 1 q d FLUOXETINE HCL 87838 096645 No Longer Active Hope Benavidez MD PhD Active INNOPRAN XL 120 MG [id number] Take one by mouth daily PROPRANOLOL HCL SR BEADS 72527134752 Active Hope Benavidez MD PhD Active POTASSIUM CHLORIDE 20 MEQ PACK by mouth twice a day prn POTASSIUM CHLORIDE 68123441385 Active Adam Yates MD Activ e CYCLOBENZAPRINE HCL 10 MG TABS 1 tablet by mouth three times daily as needed for headaches CYCLOBENZAPRINE HCL 25787500806 Active Selena Yates MD Active SIMVASTATIN 40 MG TABS 1 qd SIMVASTATIN 004 22318464 No Longer Active Adam Yates MD Active MELOXICAM 15 MG TABS 1 qd MELOXICAM 1108868 1011 No Longer Active Adam Yates MD Active ATENOLOL 50 MG TABS 1/2 tab q other day ATENOLOL 08432387103 Active Hope Benavidez MD PhD Active OMEPRAZOLE 20 MG CPDR 1 tablet by mouth daily for GERD OMEPRAZOLE 21560268893 Active Hope Benavidez MD PhD Active IMODIUM A-D 2 MG TABS 2 onset at diarrhea and prn. LOPERAMIDE HCL 72776398411 Active Hope Benavidez MD PhD Active PHENADOZ 25 MG SUPP 1 every 4 hrs. PRN PROMETHAZINE HCL 55953617975 Active Hope Benavidez MD PhD Active PROMETHAZINE HCL 25 MG TABS 1 Q. 4 hr. PRN PROMETH AZINE HCL 17607907770 Active Hope Benavidez MD PhD Active EXCEDRIN EXTRA STRENGTH 250-250-65 MG TABS 1-2 q6h PRN headache 201 04/16/21 [id number] 28372060463 Active Hope Benavidez MD PhD Active ZOFRAN 4 MG TABS 1 q 6 hr prn ONDANSETRON HCL 8680107 7002 Active Fay Alberts Active FLAGYL 500 MG TABS 1 qid METRONIDAZOLE 58653 239552 No Longer Active Adam Yates MD Active LEVAQUIN 750 MG TABS 1 qd LEVOFLOXACIN 5486 1000231 No Longer Active Adam Yates MD Active DYAZIDE 37.5-25 MG CAPS 1 qd TRIAMTERENE-HCTZ 5886 2807467 Active Hope Benavidez MD PhD Active ADULT ASPIRIN LOW STRENGTH 81 MG TBDP 1 qd A SPIRIN 86967044544 Active Hope Benavidez MD PhD Active LEVAQUIN 750 MG TABS 1 qd LEVAQUIN 750 MG T ABS 867980 LEVOFLOXACIN Inactive FLAGYL 500 MG TABS 1 qid FLAGYL 500 MG TABS 674740 METRONIDAZOLE Inactive MELOXICAM 15 MG TABS 1 qd MELOXICAM 15 MG T ABS 726288 MELOXICAM Inactive SIMVASTATIN 40 MG TABS 1 qd SIMVASTATIN 40 MG TABS 635558 SIMVASTATIN Inactive PROZAC 20 MG CAPS 1 [...] - Chem istry sodium, serum 137 mmol/L 075-723 8442/11/01 potassium, serum 3.7 mmol/L 3.5-5.2 chloride, serum 100 mmol/L 98-107 carbon dioxide, venous blood 31.8 mmol/L 21.0-32 .0 blood glucose 98 mg/dL 65-110 calcium, serum 8.6 mg/dL 8.5-10.1 urea nitrogen, blood 23 mg/dL 7-18 creatinine, serum 1.50 mg/dL 0.60-1.30 sodium, serum 136 mmol/L 662-047 4601/05/02 potassium, serum 4.1 mmol/L 3.5-5.2 chloride, serum [...] 11 .6-14.8 platelet count 133 10^3/MM^3 10*3/mm3 091-494 4079/01/17 leukocyte count, blood 3.1 10^3/MM^3 10*3/mm3 4.6-10.2 [...] 11 .6-14.8 platelet count 22 10^3/MM^3 10*3/mm3 128-964 8286/11/19 leukocyte count, blood 10.4 10^3/MM^3 10*3/mm3 4.6-10.2 [...] Verified By Repeat Analysis 10^3/mm ^3 10*3/mm3 954-940 5479/12/10 leukocyte count, blood 7.8 10^3/MM^3 10*3/mm3 4.6-10.2 [...] Panel - Chemistry sodium, serum 139 mmol/L 656-017 2776/12/03 potassium, serum 3.7 mmol/L 3.5-5.2 chloride, serum [...] 0.40 mg/dL 0.00-1.00 sodium, serum 137 mmol/L 951-538 7106/10/01 potassium, serum 3.5 mmol/L 3.5-5.2 chloride, serum [...] 0.60 mg/dL 0.00-1.00 sodium, serum 136 mmol/L 391-281 0736/10/08 potassium, serum 3.1 mmol/L 3.5-5.2 chloride, serum [...] 0.60 mg/dL 0.00-1.00 sodium, serum 139 mmol/L 247-168 2034/10/17 potassium, serum 3.1 mmol/L 3.5-5.2 chloride, serum [...] 0.30 mg/dL 0.00-1.00 sodium, serum 139 mmol/L 233-048 1798/01/21 potassium, serum 3.4 mmol/L 3.5-5.2 chloride, serum [...] 0.40 mg/dL 0.00-1.00 sodium, serum 138 mmol/L 185-421 9666/01/28 potassium, serum 3.2 mmol/L 3.5-5.2 chloride, serum [...] 0.40 mg/dL 0.00-1.00 sodium, serum 140 mmol/L 364-865 6649/02/04 potassium, serum 3.6 mmol/L 3.5-5.2 chloride, serum [...] 0.70 mg/dL 0.00-1.00 sodium, serum 142 mmol/L 159-952 8674/01/03 potassium, serum 3.4 mmol/L 3.5-5.2 chloride, serum [...] 0.50 mg/dL 0.00-1.00 sodium, serum 140 mmol/L 989-856 2911/01/06 potassium, serum 3.4 mmol/L 3.5-5.2 chloride, serum [...] 0.40 mg/dL 0.00-1.00 sodium, serum 136 mmol/L 086-856 7877/04/03 potassium, serum 3.7 mmol/L 3.5-5.2 chloride, serum [...] 0.40 mg/dL 0.00-1.00 sodium, serum 136 mmol/L 380-496 7498/02/11 potassium, serum 3.1 mmol/L 3.5-5.2 chloride, serum [...] 0.50 mg/dL 0.00-1.00 sodium, serum 139 mmol/L 919-448 9276/02/18 potassium, serum 3.6 mmol/L 3.5-5.2 chloride, serum [...] 11 .6-14.8 platelet count 246 10^3/MM^3 10*3/mm3 549-075 3980/02/18 leukocyte count, blood 4.0 10^3/MM^3 10*3/mm3 4.6-10.2 [...] 11 .6-14.8 platelet count 134 10^3/MM^3 10*3/mm3 245-609 0077/01/03 leukocyte count, blood 8.1 10^3/MM^3 10*3/mm3 4.6-10.2 [...] 11 .6-14.8 platelet count 96 10^3/MM^3 10*3/mm3 476-031 2607/01/06 leukocyte count, blood 7.6 10^3/MM^3 10*3/mm3 4.6-10.2 [...] 11 .6-14.8 platelet count 132 10^3/MM^3 10*3/mm3 906-007 6196/02/11 leukocyte count, blood 4.8 10^3/MM^3 10*3/mm3 4.6-10.2 [...] 11 .6-14.8 platelet count 102 10^3/MM^3 10*3/mm3 282-622 6051/02/04 leukocyte count, blood 3.6 10^3/MM^3 10*3/mm3 4.6-10.2 [...] 11 .6-14.8 platelet count 70 10^3/MM^3 10*3/mm3 291-055 3828/01/28 leukocyte count, blood 4.2 10^3/MM^3 10*3/mm3 4.6-10.2 [...] 11 .6-14.8 platelet count 73 10^3/MM^3 10*3/mm3 996-079 2041/01/21 leukocyte count, blood 4.9 10^3/MM^3 10*3/mm3 4.6-10.2 [...] .6-14.8 platelet count 38 recounted 10^3/mm^3 10*3/mm3 715-165 6635/10/08 leukocyte count, blood 2.9 10^3/MM^3 10*3/mm3 4.6-10.2 [...] 11 .6-14.8 platelet count 229 10^3/MM^3 10*3/mm3 743-095 5041/10/17 leukocyte count, blood 12.0 10^3/MM^3 10*3/mm3 4.6-10.2 [...] 11 .6-14.8 platelet count 232 10^3/MM^3 10*3/mm3 818-901 1592/10/01 leukocyte count, blood 8.3 10^3/MM^3 10*3/mm3 4.6-10.2 [...] 11 .6-14.8 platelet count 378 10^3/MM^3 10*3/mm3 919-979 4834/12/03 leukocyte count, blood 8.2 10^3/MM^3 10*3/mm3 4.6-10.2 [...] Diff/Morphology - Chemistry sodium, serum 141 mmol/L 572-182 1827/11/25 potassium, serum 3.9 mmol/L 3.5-5.2 chloride, serum [...] 0.50 mg/dL 0.00-1.00 sodium, serum 137 mmol/L 226-351 3921/11/12 potassium, serum 3.2 mmol/L 3.5-5.2 chloride, [...] 0.40 mg/dL 0.00-1.00 sodium, serum 140 mmol/L 214-837 8583/12/17 potassium, serum 3.3 mmol/L 3.5-5.2 chloride, serum [...] 0.40 mg/dL 0.00-1.00 sodium, serum 138 mmol/L 596-771 2593/12/24 potassium, serum 3.7 mmol/L 3.5-5.2 chloride, serum [...] 0.50 mg/dL 0.00-1.00 sodium, serum 138 mmol/L 525-710 2609/11/05 potassium, serum 3.9 mmol/L 3.5-5.2 chloride, serum [...] 0.40 mg/dL 0.00-1.00 sodium, serum 135 mmol/L 857-864 1425/10/22 potassium, serum 3.0 mmol/L 3.5-5.2 chloride, serum [...] 0.50 mg/dL 0.00-1.00 sodium, serum 128 mmol/L 481-378 1001/10/29 potassium, serum 2.6 mmol/L 3.5-5.2 chloride, serum [...] 0.50 mg/dL 0.00-1.00 sodium, serum 141 mmol/L 761-420 2136/01/14 potassium, serum 3.9 mmol/L 3.5-5.2 chloride, serum [...] 11 .6-14.8 platelet count 22 10^3/MM^3 10*3/mm3 270-757 8469/10/22 leukocyte count, blood 14.7 10^3/MM^3 10*3/mm3 4.6-10.2 [...] 11 .6-14.8 platelet count 428 10^3/MM^3 10*3/mm3 953-766 9205/10/29 leukocyte count, blood 26.3 10^3/MM^3 10*3/mm3 4.6-10.2 [...] 11 .6-14.8 platelet count 268 10^3/MM^3 10*3/mm3 149-005 9982/11/12 leukocyte count, blood 12.1 10^3/MM^3 10*3/mm3 4.6-10.2 [...] 11 .6-14.8 platelet count 157 10^3/MM^3 10*3/mm3 924-365 1442/11/05 leukocyte count, blood 16.4 10^3/MM^3 10*3/mm3 4.6-10.2 [...] 11 .6-14.8 platelet count 215 10^3/MM^3 10*3/mm3 383-298 3277/12/24 leukocyte count, blood 14.0 10^3/MM^3 10*3/mm3 4.6-10.2 [...] 11 .6-14.8 platelet count 66 10^3/MM^3 10*3/mm3 000-417 9304/12/17 leukocyte count, blood 18.6 10^3/MM^3 10*3/mm3 4.6-10.2 [...] 11 .6-14.8 platelet count 75 10^3/MM^3 10*3/mm3 854-586 2788/11/25 leukocyte count, blood 21.1 10^3/MM^3 10*3/mm3 4.6-10.2 [...] 11 .6-14.8 platelet count 413 10^3/MM^3 10*3/mm3 569-255 1086/01/16 leukocyte count, blood 3.6 10^3/MM^3 10*3/mm3 4.6-10.2 [...] - Chem istry sodium, serum 141 mmol/L 994-617 4355/11/19 potassium, serum 3.9 mmol/L 3.5-5.2 chloride, serum [...] 0.50 mg/dL 0.00-1.00 sodium, serum 142 mmol/L 101-602 2501/12/10 potassium, serum 3.9 mmol/L 3.5-5.2 chloride, serum [...] Diff/Morphology - Chemistry sodium, serum 142 mmol/L 374-746 9773/12/31 potassium, serum 3.6 mmol/L 3.5-5.2 chloride, serum [...] 3.5-5.2 Encounters Code Encounter Date Provider Facility CPT-34574 Level 3 New Patient 01:46:11 [employer] DEVEL[employer] ANALYST Hope landers MD PhD [facility] Procedures Code Procedure Name Date Entry Date Standard Desc ription CPT-11290 Postop F/U Visit 15:21:02 CDT CPT-TCMH Transitional Care Mgmt-High 07:52:27 CDT 20 20/06/01 CPT-94174 Venipuncture Draw Fee 13:51:18 CDT CPT-35386 Venipuncture Draw Fee 10:14:55 [employer] CPT-21525 Venipuncture Draw Fee 13:39:45 [employer]LY[employer] CPT-OV Office Visit 15:11:22 [employer]NALY[employer] CPT-99867 Venipuncture Draw Fee 09:20:49 [employer]EL[employer]NALY[employer] CPT-16495 Venipuncture Draw Fee 16:52:15 [employer]ELOPER [employer]NALY[employer] CPT-88845 Venipuncture Draw Fee 10:37:24 [employer]ELOPER [employer]NALYST CPT-66874 Venipuncture Draw Fee 08:21:21 [employer]ELOPER [employer]NALY[employer] CPT-01087 Venipuncture Draw Fee 08:30:20 [employer]ELOPER [employer]NALY[employer] CPT-87733 Venipuncture Draw Fee 14:53:21 [employer]ELOPER ANALY[employer] CPT-94978 Venipuncture Draw Fee 09:40:56 [employer]ELOPER ANALYST CPT-68192 Venipuncture Draw Fee 10:30:47 [employer]ELOPER [employer]NALY[employer] CPT-06206 Venipuncture Draw Fee 10:46:17 [employer]ELOPER [employer]NALY[employer] CPT-21653 Venipuncture Draw Fee 11:12:45 [employer] DEVELOPER [employer]NALY[employer] CPT-60777 Venipuncture Draw Fee 09:53:33 [employer] DEVELOPER ANALYST CPT-85573 Venipuncture Draw Fee 11:53:51 [employer] DEVELOPER ANALYST CPT-72863 Venipuncture Draw Fee 10:33:50 [employer]ELOPER [employer]NALY[employer] CPT-23769 Venipuncture Draw Fee 10:05:01 [employer] DEVELOPER ANALYST CPT-46630 Venipuncture Draw Fee 14:32:52 [employer] DEVELOPER ANALYST CPT-92030 Venipuncture Draw Fee 09:46:13 [employer] DEVELOPER ANALYST CPT-28697 Venipuncture Draw Fee 11:34:27 [employer] DEVELOPER ANALY[employer] CPT-35885 Venipuncture Draw Fee 13:17:16 [employer]ELOPER [employer]NALY[employer] CPT-40397 Venipuncture Draw Fee 12:05:39 CDT CPT-63080 Venipuncture Draw Fee 12:49:12 CDT CPT-27104 Venipuncture Draw Fee 12:37:18 CDT CPT-17250 Venipuncture Draw Fee 10:57:11 CDT CPT-47677 Venipuncture Draw Fee 13:47:40 CDT CPT-47183 Venipuncture Draw Fee 10:02:17 CDT CPT-44908 TB Tubersol 17:32:32 CDT CPT-OV Office Visit 16:21:53 CDT CPT-OV Office Visit 15:49:22 CDT CPT-OV Office Visit 17:16:31 CDT CPT-OV Office Visit 10:43:31 CDT
--- OUTSIDE RECORDS SUMMARY | 2019-02-09 13:35 | XMS REPORT | Clinical Summary ---
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 Dick Yates MD [...] Instructions Start Date Stop Date Generic Name [facility] Status Provider Patient Instruction PROZAC 20 MG CAPS 1 q d FLUOXETINE HCL 18870 930073 No Longer Active Hope Benavidez MD PhD Active INNOPRAN XL 120 MG [id number] Take one by mouth daily PROPRANOLOL HCL SR BEADS 50605503067 Active Hope Benavidez MD PhD Active POTASSIUM CHLORIDE 20 MEQ PACK by mouth twice a day prn POTASSIUM CHLORIDE 93967734673 Active Adam Yates MD Activ e CYCLOBENZAPRINE HCL 10 MG TABS 1 tablet by mouth three times daily as needed for headaches CYCLOBENZAPRINE HCL 33086075728 Active Selena Yates MD Active SIMVASTATIN 40 MG TABS 1 qd SIMVASTATIN 004 09530439 No Longer Active Adam Yates MD Active MELOXICAM 15 MG TABS 1 qd MELOXICAM 8466905 0399 No Longer Active Adam Yates MD Active ATENOLOL 50 MG TABS 1/2 tab q other day ATENOLOL 13059325554 Active Hope Benavidez MD PhD Active OMEPRAZOLE 20 MG CPDR 1 tablet by mouth daily for GERD OMEPRAZOLE 89561048390 Active Hope Benavidez MD PhD Active IMODIUM A-D 2 MG TABS 2 onset at diarrhea and prn. LOPERAMIDE HCL 51363945249 Active Hope Benavidez MD PhD Active PHENADOZ 25 MG SUPP 1 every 4 hrs. PRN PROMETHAZINE HCL 36275512838 Active Hope Benavidez MD PhD Active PROMETHAZINE HCL 25 MG TABS 1 Q. 4 hr. PRN PROMETH AZINE HCL 11742840833 Active Hope Benavidez MD PhD Active EXCEDRIN EXTRA STRENGTH 250-250-65 MG TABS 1-2 q6h PRN headache 201 04/16/21 [id number] 62986787230 Active Hope Benavidez MD PhD Active ZOFRAN 4 MG TABS 1 q 6 hr prn ONDANSETRON HCL 6135679 7002 Active Fay Alberts Active FLAGYL 500 MG TABS 1 qid METRONIDAZOLE 70567 955561 No Longer Active Adam Yates MD Active LEVAQUIN 750 MG TABS 1 qd LEVOFLOXACIN 5486 8788013 No Longer Active Adam Yates MD Active DYAZIDE 37.5-25 MG CAPS 1 qd TRIAMTERENE-HCTZ 5886 1269474 Active Hope Benavidez MD PhD Active ADULT ASPIRIN LOW STRENGTH 81 MG TBDP 1 qd A SPIRIN 67906106526 Active Hope Benavidez MD PhD Active LEVAQUIN 750 MG TABS 1 qd LEVAQUIN 750 MG T ABS 799796 LEVOFLOXACIN Inactive FLAGYL 500 MG TABS 1 qid FLAGYL 500 MG TABS 157194 METRONIDAZOLE Inactive MELOXICAM 15 MG TABS 1 qd MELOXICAM 15 MG T ABS 712808 MELOXICAM Inactive SIMVASTATIN 40 MG TABS 1 qd SIMVASTATIN 40 MG TABS 551225 SIMVASTATIN Inactive PROZAC 20 MG CAPS 1 [...] - Chem istry sodium, serum 137 mmol/L 265-900 3932/11/01 potassium, serum 3.7 mmol/L 3.5-5.2 chloride, serum 100 mmol/L 98-107 carbon dioxide, venous blood 31.8 mmol/L 21.0-32 .0 blood glucose 98 mg/dL 65-110 calcium, serum 8.6 mg/dL 8.5-10.1 urea nitrogen, blood 23 mg/dL 7-18 creatinine, serum 1.50 mg/dL 0.60-1.30 sodium, serum 136 mmol/L 894-205 8752/05/02 potassium, serum 4.1 mmol/L 3.5-5.2 chloride, serum [...] 11 .6-14.8 platelet count 133 10^3/MM^3 10*3/mm3 967-586 7750/01/17 leukocyte count, blood 3.1 10^3/MM^3 10*3/mm3 4.6-10.2 [...] 11 .6-14.8 platelet count 22 10^3/MM^3 10*3/mm3 648-378 1779/11/19 leukocyte count, blood 10.4 10^3/MM^3 10*3/mm3 4.6-10.2 [...] Verified By Repeat Analysis 10^3/mm ^3 10*3/mm3 638-269 7437/12/10 leukocyte count, blood 7.8 10^3/MM^3 10*3/mm3 4.6-10.2 [...] Panel - Chemistry sodium, serum 139 mmol/L 544-826 5412/12/03 potassium, serum 3.7 mmol/L 3.5-5.2 chloride, serum [...] 0.40 mg/dL 0.00-1.00 sodium, serum 137 mmol/L 981-028 3381/10/01 potassium, serum 3.5 mmol/L 3.5-5.2 chloride, serum [...] 0.60 mg/dL 0.00-1.00 sodium, serum 136 mmol/L 457-421 1238/10/08 potassium, serum 3.1 mmol/L 3.5-5.2 chloride, serum [...] 0.60 mg/dL 0.00-1.00 sodium, serum 139 mmol/L 293-057 8360/10/17 potassium, serum 3.1 mmol/L 3.5-5.2 chloride, serum [...] 0.30 mg/dL 0.00-1.00 sodium, serum 139 mmol/L 630-891 9166/01/21 potassium, serum 3.4 mmol/L 3.5-5.2 chloride, serum [...] 0.40 mg/dL 0.00-1.00 sodium, serum 138 mmol/L 885-753 6310/01/28 potassium, serum 3.2 mmol/L 3.5-5.2 chloride, serum [...] 0.40 mg/dL 0.00-1.00 sodium, serum 140 mmol/L 678-413 8510/02/04 potassium, serum 3.6 mmol/L 3.5-5.2 chloride, serum [...] 0.70 mg/dL 0.00-1.00 sodium, serum 142 mmol/L 426-874 0398/01/03 potassium, serum 3.4 mmol/L 3.5-5.2 chloride, serum [...] 0.50 mg/dL 0.00-1.00 sodium, serum 140 mmol/L 002-695 8127/01/06 potassium, serum 3.4 mmol/L 3.5-5.2 chloride, serum [...] 0.40 mg/dL 0.00-1.00 sodium, serum 136 mmol/L 824-908 3238/04/03 potassium, serum 3.7 mmol/L 3.5-5.2 chloride, serum [...] 0.40 mg/dL 0.00-1.00 sodium, serum 136 mmol/L 411-683 0425/02/11 potassium, serum 3.1 mmol/L 3.5-5.2 chloride, serum [...] 0.50 mg/dL 0.00-1.00 sodium, serum 139 mmol/L 942-060 0081/02/18 potassium, serum 3.6 mmol/L 3.5-5.2 chloride, serum [...] 11 .6-14.8 platelet count 246 10^3/MM^3 10*3/mm3 609-358 9502/02/18 leukocyte count, blood 4.0 10^3/MM^3 10*3/mm3 4.6-10.2 [...] 11 .6-14.8 platelet count 134 10^3/MM^3 10*3/mm3 165-131 8105/01/03 leukocyte count, blood 8.1 10^3/MM^3 10*3/mm3 4.6-10.2 [...] 11 .6-14.8 platelet count 96 10^3/MM^3 10*3/mm3 694-700 0847/01/06 leukocyte count, blood 7.6 10^3/MM^3 10*3/mm3 4.6-10.2 [...] 11 .6-14.8 platelet count 132 10^3/MM^3 10*3/mm3 537-700 7654/02/11 leukocyte count, blood 4.8 10^3/MM^3 10*3/mm3 4.6-10.2 [...] 11 .6-14.8 platelet count 102 10^3/MM^3 10*3/mm3 542-995 9518/02/04 leukocyte count, blood 3.6 10^3/MM^3 10*3/mm3 4.6-10.2 [...] 11 .6-14.8 platelet count 70 10^3/MM^3 10*3/mm3 718-466 1878/01/28 leukocyte count, blood 4.2 10^3/MM^3 10*3/mm3 4.6-10.2 [...] 11 .6-14.8 platelet count 73 10^3/MM^3 10*3/mm3 137-304 9543/01/21 leukocyte count, blood 4.9 10^3/MM^3 10*3/mm3 4.6-10.2 [...] .6-14.8 platelet count 38 recounted 10^3/mm^3 10*3/mm3 934-461 2078/10/08 leukocyte count, blood 2.9 10^3/MM^3 10*3/mm3 4.6-10.2 [...] 11 .6-14.8 platelet count 229 10^3/MM^3 10*3/mm3 442-231 7132/10/17 leukocyte count, blood 12.0 10^3/MM^3 10*3/mm3 4.6-10.2 [...] 11 .6-14.8 platelet count 232 10^3/MM^3 10*3/mm3 974-228 1897/10/01 leukocyte count, blood 8.3 10^3/MM^3 10*3/mm3 4.6-10.2 [...] 11 .6-14.8 platelet count 378 10^3/MM^3 10*3/mm3 229-793 3882/12/03 leukocyte count, blood 8.2 10^3/MM^3 10*3/mm3 4.6-10.2 [...] Diff/Morphology - Chemistry sodium, serum 141 mmol/L 706-428 6257/11/25 potassium, serum 3.9 mmol/L 3.5-5.2 chloride, serum [...] 0.50 mg/dL 0.00-1.00 sodium, serum 137 mmol/L 499-573 1887/11/12 potassium, serum 3.2 mmol/L 3.5-5.2 chloride, serum [...] 0.40 mg/dL 0.00-1.00 sodium, serum 140 mmol/L 393-789 0015/12/17 potassium, serum 3.3 mmol/L 3.5-5.2 chloride, serum [...] 0.40 mg/dL 0.00-1.00 sodium, serum 138 mmol/L 907-181 1741/12/24 potassium, serum 3.7 mmol/L 3.5-5.2 chloride, serum [...] 0.50 mg/dL 0.00-1.00 sodium, serum 138 mmol/L 638-324 8006/11/05 potassium, serum 3.9 mmol/L 3.5-5.2 chloride, serum [...] 0.40 mg/dL 0.00-1.00 sodium, serum 135 mmol/L 540-872 3422/10/22 potassium, serum 3.0 mmol/L 3.5-5.2 chloride, serum [...] 0.50 mg/dL 0.00-1.00 sodium, serum 128 mmol/L 802-855 0869/10/29 potassium, serum 2.6 mmol/L 3.5-5.2 chloride, serum [...] 0.50 mg/dL 0.00-1.00 sodium, serum 141 mmol/L 845-336 4874/01/14 potassium, serum 3.9 mmol/L 3.5-5.2 chloride, serum [...] 11 .6-14.8 platelet count 22 10^3/MM^3 10*3/mm3 017-771 3965/10/22 leukocyte count, blood 14.7 10^3/MM^3 10*3/mm3 4.6-10.2 [...] 11 .6-14.8 platelet count 428 10^3/MM^3 10*3/mm3 245-582 1338/10/29 leukocyte count, blood 26.3 10^3/MM^3 10*3/mm3 4.6-10.2 [...] 11 .6-14.8 platelet count 268 10^3/MM^3 10*3/mm3 592-314 6363/11/12 leukocyte count, blood 12.1 10^3/MM^3 10*3/mm3 4.6-10.2 [...] 11 .6-14.8 platelet count 157 10^3/MM^3 10*3/mm3 386-709 8112/11/05 leukocyte count, blood 16.4 10^3/MM^3 10*3/mm3 4.6-10.2 [...] 11 .6-14.8 platelet count 215 10^3/MM^3 10*3/mm3 588-701 4582/12/24 leukocyte count, blood 14.0 10^3/MM^3 10*3/mm3 4.6-10.2 [...] 11 .6-14.8 platelet count 66 10^3/MM^3 10*3/mm3 490-954 6041/12/17 leukocyte count, blood 18.6 10^3/MM^3 10*3/mm3 4.6-10.2 [...] 11 .6-14.8 platelet count 75 10^3/MM^3 10*3/mm3 050-007 3970/11/25 leukocyte count, blood 21.1 10^3/MM^3 10*3/mm3 4.6-10.2 [...] 11 .6-14.8 platelet count 413 10^3/MM^3 10*3/mm3 874-340 2849/01/16 leukocyte count, blood 3.6 10^3/MM^3 10*3/mm3 4.6-10.2 [...] - Chem istry sodium, serum 141 mmol/L 035-108 1047/11/19 potassium, serum 3.9 mmol/L 3.5-5.2 chloride, serum [...] 0.50 mg/dL 0.00-1.00 sodium, serum 142 mmol/L 946-026 1872/12/10 potassium, serum 3.9 mmol/L 3.5-5.2 chloride, serum [...] Diff/Morphology - Chemistry sodium, serum 142 mmol/L 177-341 8736/12/31 potassium, serum 3.6 mmol/L 3.5-5.2 chloride, serum [...] 3.5-5.2 Encounters Code Encounter Date Provider Facility CPT-30087 Level 3 New Patient 01:46:11 [employer]VER Hope landers MD PhD [facility] Procedures Code Procedure Name Date Entry Date Standard Desc ription CPT-64663 Venipuncture Draw Fee 13:51:18 CDT CPT-55430 Venipuncture Draw Fee 10:14:55 [employer] CPT-44333 Venipuncture Draw Fee 13:39:45 [employer] CPT-OV Office Visit 15:11:22 [employer] CPT-58347 Venipuncture Draw Fee 09:20:49 [employer] CPT-45752 Venipuncture Draw Fee 16:52:15 [employer] CPT-11870 Venipuncture Draw Fee 10:37:24 [employer] CPT-44483 Venipuncture Draw Fee 08:21:21 [employer] CPT-29499 Venipuncture Draw Fee 08:30:20 [employer] CPT-73731 Venipuncture Draw Fee 14:53:21 [employer] CPT-68123 Venipuncture Draw Fee 09:40:56 [employer] CPT-82007 Venipuncture Draw Fee 10:30:47 [employer] CPT-06301 Venipuncture Draw Fee 10:46:17 [employer] CPT-09566 Venipuncture Draw Fee 11:12:45 [employer] CPT-94490 Venipuncture Draw Fee 09:53:33 [facility] CPT-16338 Venipuncture Draw Fee 11:53:51 [employer] CPT-47868 Venipuncture Draw Fee 10:33:50 [employer] CPT-46757 Venipuncture Draw Fee 10:05:01 [employer] CPT-15459 Venipuncture Draw Fee 14:32:52 [employer] CPT-76837 Venipuncture Draw Fee 09:46:13 [facility] CPT-51129 Venipuncture Draw Fee 11:34:27 [facility] CPT-59433 Venipuncture Draw Fee 13:17:16 [facility] CPT-55699 Venipuncture Draw Fee 12:05:39 CDT CPT-12084 Venipuncture Draw Fee 12:49:12 CDT CPT-09368 Venipuncture Draw Fee 12:37:18 CDT CPT-63701 Venipuncture Draw Fee 10:57:11 CDT CPT-97415 Venipuncture Draw Fee 13:47:40 CDT CPT-98499 Venipuncture Draw Fee 10:02:17 CDT CPT-80564 TB Tubersol 17:32:32 CDT CPT-OV Office Visit 16:21:53 CDT CPT-OV Office Visit 15:49:22 CDT CPT-OV Office Visit 17:16:31 CDT CPT-OV Office Visit 10:43:31 CDT
--- OUTSIDE RECORDS SUMMARY | 2019-02-09 13:35 | XMS REPORT | Clinical Summary ---
[...] by mouth twice daily, for UTI SULFAMETHOXAZOLE-TRIMETHOPRIM [id number] No Longer Active Lisa Benavidez MD PhD Active PROLIA 60 MG/ML SOLN 1 shot every 6 months for osteoprosis DENOSUMAB 14874196663 Active Hope Benavidez MD PhD Active CALCIUM + D + K 750-500-40 MG-UNT-MCG TABS 1 tab by mouth tw ice daily CALCIUM-VITAMIN D-VITAMIN K 58255705372 Active Hope landers MD PhD Active DAILY VALUE MULTIVITAMIN TABS 1 tab by mouth twice daily MULTIPLE VITAMIN 07957063080 Active Hope Benavidez MD PhD Active FISH OIL 306 MG CAPS 1 tab by mouth three times daily OMEGA-3 FATTY ACIDS 67709327620 Active Hope Benavidez MD PhD Active LUTEIN 10 MG TABS 1 tab daily LUTEIN 77522709945 Act cash Hope Benavidez MD PhD Active FLORANEX PACK 1 pack three times daily, for bowel health LACTOBACILLUS 38296561887 Active Hope Benavidez MD PhD Active LOMOTIL 2.5-0.025 MG TABS 1 tab by mouth prn DIPHENOXYLATE-ATROPINE 89392371803 Active Hope Benavidez MD PhD Active TRIAMTERENE-HCTZ 37.5-25 MG TABS 1 tab by mouth daily TRIAMTERENE-HCTZ 06597141838 Active Hope Benavidez MD PhD Acti ve IRON 325 (65 FE) MG TABS 1 tab daily FERROUS SULF ATE 37391837120 Active Hope Benavidez MD PhD Active MAGNESIUM GLUCONATE 250 MG TABS 1 tab tid MAGN ESIUM GLUCONATE 37927872191 Active Adam Yates MD Active ATENOLOL 50 MG TABS 1/2 tab q other day m-w-f ATE NOLOL 90508503993 Active Hope Benavidez MD PhD Active PROPRANOLOL HCL 80 MG TABS 1 tab tue. and thur. PROPRANOLOL HCL 22732722945 Active Adam Yates MD Active CYCLOBENZAPRINE HCL 10 MG TABS 1 tablet by mouth three times daily as needed for headaches CYCLOBENZAPRINE HCL 93797861254 No Longe r Active Adam Yates MD Active OMEPRAZOLE 20 MG CPDR 1 tablet by mouth daily for GERD OMEPRAZOLE 94072773900 No Longer Active Adam Yates MD A ctive ZOFRAN 8 MG TABS 1 tab by mouth every 12 hours prn 201 05/16/09 ONDANSETRON HCL 45406888798 No Longer Active Adam Yates MD Active PHENADOZ 25 MG SUPP 1 every 4 hrs. PRN PROMETHA ZINE HCL 62900524088 No Longer Active Adam Yates MD Active POTASSIUM CHLORIDE 20 MEQ PACK by mouth twice a day prn POTASSIUM CHLORIDE 48300952154 No Longer Active Adam Yates MD Active PROMETHAZINE HCL 25 MG TABS 1 Q. 4 hr. PRN PROM ETHAZINE HCL 63647768942 No Longer Active Adam Yates MD Active INNOPRAN XL 120 MG [id number] Take one by mouth daily 2 PROPRANOLOL HCL SR BEADS 11654039054 No Longer Active Adam Yates MD A ctive FLAGYL 500 MG TABS 1 pill by mouth three times daily, for diarrh ea METRONIDAZOLE 07124037051 No Longer Active Hope Benavidez MD PhD Active DYAZIDE 37.5-25 MG CAPS 1 qd TRIAMTERENE-HC TZ 80573723876 No Longer Active Hope Benavidez MD PhD Active PROZAC 20 MG CAPS 1 q d FLUOXETINE HCL 33677 354047 No Longer Active Hope Benavidez MD PhD Active SIMVASTATIN 40 MG TABS 1 qd SIMVASTATIN 004 93921363 No Longer Active Adam Yates MD Active MELOXICAM 15 MG TABS 1 qd MELOXICAM 1428825 0335 No Longer Active Adam Yates MD Active IMODIUM A-D 2 MG TABS 2 onset at diarrhea and prn. LOPERAMIDE HCL 70457884960 Active Hope Benavidez MD PhD Active EXCEDRIN EXTRA STRENGTH 250-250-65 MG TABS 1-2 q6h PRN headache 201 04/16/21 [id number] 42206585468 Active Hope Benavidez MD PhD Active FLAGYL 500 MG TABS 1 qid METRONIDAZOLE 51738 984781 No Longer Active Adam Yates MD Active LEVAQUIN 750 MG TABS 1 qd LEVOFLOXACIN 5486 1525950 No Longer Active Adam Yates MD Active ADULT ASPIRIN LOW STRENGTH 81 MG TBDP 1 qd A SPIRIN 09463420866 Active Hope Benavidez MD PhD Active LEVAQUIN 750 MG TABS 1 qd LEVAQUIN 750 MG T ABS 231894 LEVOFLOXACIN Inactive FLAGYL 500 MG TABS 1 qid FLAGYL 500 MG TABS 042202 METRONIDAZOLE Inactive MELOXICAM 15 MG TABS 1 qd MELOXICAM 15 MG T ABS 764259 MELOXICAM Inactive SIMVASTATIN 40 MG TABS 1 qd SIMVASTATIN 40 MG TABS 422621 SIMVASTATIN Inactive PROZAC 20 MG CAPS 1 q d PROZAC 20 MG CAPS 31 0385 FLUOXETINE HCL Inactive DYAZIDE 37.5-25 MG CAPS 1 qd DYAZIDE 37.5 -25 MG CAPS 702561 TRIAMTERENE-HCTZ Inactive INNOPRAN XL 120 MG [id number] Take one by mouth daily 2 INNOPRAN XL 120 MG [id number] PROPRANOLOL HCL SR BEADS Inactive PROMETHAZINE HCL 25 MG TABS 1 Q. 4 hr. PRN PROMETHAZINE HCL 25 MG TABS 099141 PROMETHAZINE HCL Inactive POTASSIUM CHLORIDE 20 MEQ PACK by mouth twice a day prn POTASSIUM CHLORIDE 20 MEQ PACK 490378 POTASSIUM CHLORIDE Inactive PHENADOZ 25 MG SUPP 1 every 4 hrs. PRN PHENADOZ 2 5 MG SUPP 760340 PROMETHAZINE HCL Inactive ZOFRAN 8 MG TABS 1 tab by mouth every 12 hours prn 201 05/16/09 ZOFRAN 8 MG TABS 516138 ONDANSETRON HCL Inactive OMEPRAZOLE 20 MG CPDR 1 tablet by mouth daily for GERD OMEPRAZOLE 20 MG CPDR 301072 OMEPRAZOLE Inactive CYCLOBENZAPRINE HCL 10 MG TABS 1 tablet by mouth three times daily as needed for headaches CYCLOBENZAPRINE HCL 10 MG TABS 446478 CYCLOBENZAPRINE HCL Inactive FLAGYL 500 MG TABS 1 pill by mouth three times daily, for diarrh ea FLAGYL 500 MG TABS 636905 METRONIDAZOLE Inactive BACTRIM DS 800-160 MG TABS [...] Range Description Chart Maintenance: labs added to [facility] - Chemistry magnesium, serum 2.0 mg/dL Chart Maintenance: Outside labs entered on [facility] - Chemistry sodium, serum 139 mmol/L potassium, serum 3.9 mmol/L blood glucose 85 mg/dL creatinine, serum 1.26 mg/dL aspartate aminotransferase (SGOT), serum 33 U/L alanine aminotransferase (SGPT), serum 44 U/L alkaline phosphatase, serum 127 U/L Chart Maintenance: Outside labs entered on [facility] - Hematology leukocyte count, blood 4.6 10*3/mm3 hemoglobin, blood 13.6 g/dL platelet count 162 10*3/mm3 Lab Report: Basic Metabolic Panel - Chem istry sodium, serum 136 mmol/L 078-876 6758/05/02 potassium, serum 4.1 mmol/L 3.5-5.2 chloride, serum [...] 11 .6-14.8 platelet count 102 10^3/MM^3 10*3/mm3 011-550 8480/01/08 leukocyte count, blood 9.0 10^3/MM^3 10*3/mm3 4.6-10.2 [...] 11 .6-14.8 platelet count 133 10^3/MM^3 10*3/mm3 663-145 1523/01/17 leukocyte count, blood 3.1 10^3/MM^3 10*3/mm3 4.6-10.2 [...] Panel - Chemistry sodium, serum 139 mmol/L 040-310 2382/01/21 potassium, serum 3.4 mmol/L 3.5-5.2 chloride, serum [...] 0.40 mg/dL 0.00-1.00 sodium, serum 138 mmol/L 715-570 9114/01/28 potassium, serum 3.2 mmol/L 3.5-5.2 chloride, serum [...] 0.40 mg/dL 0.00-1.00 sodium, serum 140 mmol/L 371-438 8721/02/04 potassium, serum 3.6 mmol/L 3.5-5.2 chloride, serum [...] 0.70 mg/dL 0.00-1.00 sodium, serum 136 mmol/L 589-704 3937/02/11 potassium, serum 3.1 mmol/L 3.5-5.2 chloride, serum [...] 0.50 mg/dL 0.00-1.00 sodium, serum 139 mmol/L 034-797 3365/02/18 potassium, serum 3.6 mmol/L 3.5-5.2 chloride, serum [...] 0.50 mg/dL 0.00-1.00 sodium, serum 140 mmol/L 395-317 3443/01/06 potassium, serum 3.4 mmol/L 3.5-5.2 chloride, serum [...] 0.40 mg/dL 0.00-1.00 sodium, serum 136 mmol/L 576-391 6525/04/03 potassium, serum 3.7 mmol/L 3.5-5.2 chloride, serum [...] 0.40 mg/dL 0.00-1.00 sodium, serum 142 mmol/L 235-132 3330/01/03 potassium, serum 3.4 mmol/L 3.5-5.2 chloride, serum [...] 0.50 mg/dL 0.00-1.00 sodium, serum 139 mmol/L 571-976 9736/12/03 potassium, serum 3.7 mmol/L 3.5-5.2 chloride, serum [...] 0.40 mg/dL 0.00-1.00 sodium, serum 138 mmol/L 907-296 5414/08/14 potassium, serum 4.0 mmol/L 3.5-5.2 chloride, serum [...] 11 .6-14.8 platelet count 193 10^3/MM^3 10*3/mm3 627-452 5336/12/03 leukocyte count, blood 8.2 10^3/MM^3 10*3/mm3 4.6-10.2 [...] 11 .6-14.8 platelet count 98 10^3/MM^3 10*3/mm3 540-102 8963/01/06 leukocyte count, blood 7.6 10^3/MM^3 10*3/mm3 4.6-10.2 [...] 11 .6-14.8 platelet count 132 10^3/MM^3 10*3/mm3 868-416 1584/01/03 leukocyte count, blood 8.1 10^3/MM^3 10*3/mm3 4.6-10.2 [...] 11 .6-14.8 platelet count 96 10^3/MM^3 10*3/mm3 506-431 0261/04/03 leukocyte count, blood 5.6 10^3/MM^3 10*3/mm3 4.6-10.2 [...] 11 .6-14.8 platelet count 246 10^3/MM^3 10*3/mm3 505-264 7647/02/18 leukocyte count, blood 4.0 10^3/MM^3 10*3/mm3 4.6-10.2 [...] 11 .6-14.8 platelet count 134 10^3/MM^3 10*3/mm3 595-176 5806/02/11 leukocyte count, blood 4.8 10^3/MM^3 10*3/mm3 4.6-10.2 [...] 11 .6-14.8 platelet count 102 10^3/MM^3 10*3/mm3 512-288 5953/02/04 leukocyte count, blood 3.6 10^3/MM^3 10*3/mm3 4.6-10.2 [...] 11 .6-14.8 platelet count 70 10^3/MM^3 10*3/mm3 596-687 4727/01/28 leukocyte count, blood 4.2 10^3/MM^3 10*3/mm3 4.6-10.2 [...] 11 .6-14.8 platelet count 73 10^3/MM^3 10*3/mm3 566-154 7508/01/21 leukocyte count, blood 4.9 10^3/MM^3 10*3/mm3 4.6-10.2 [...] Diff/Morphology - Chemistry sodium, serum 141 mmol/L 962-259 9085/01/14 potassium, serum 3.9 mmol/L 3.5-5.2 chloride, serum [...] 0.50 mg/dL 0.00-1.00 sodium, serum 140 mmol/L 465-957 0190/12/17 potassium, serum 3.3 mmol/L 3.5-5.2 chloride, serum [...] 0.40 mg/dL 0.00-1.00 sodium, serum 138 mmol/L 626-583 9777/12/24 potassium, serum 3.7 mmol/L 3.5-5.2 chloride, serum [...] 11 .6-14.8 platelet count 66 10^3/MM^3 10*3/mm3 506-664 5486/12/17 leukocyte count, blood 18.6 10^3/MM^3 10*3/mm3 4.6-10.2 [...] 11 .6-14.8 platelet count 75 10^3/MM^3 10*3/mm3 522-452 8902/01/14 leukocyte count, blood 6.2 10^3/MM^3 10*3/mm3 4.6-10.2 [...] - Chem istry sodium, serum 142 mmol/L 151-879 1412/12/10 potassium, serum 3.9 mmol/L 3.5-5.2 chloride, serum [...] Diff/Morphology - Chemistry sodium, serum 142 mmol/L 121-605 7105/12/31 potassium, serum 3.6 mmol/L 3.5-5.2 chloride, serum [...] Panel - Chemistry cholesterol, serum 209 mg/dL 597-547 6193/09/11 triglyceride, serum, fasting 113 mg/dL 30-200 HDL [...] 5.0-8.5 Encounters Code Encounter Date Provider Facility [id number] Level 4 Est. Patient 19:08:42 SENIOR MARKETING ANALYST Hope cohn MD PhD [facility] CPT-29745 Level 4 Est. Patient 20:04:51 CDT Hope cohn MD PhD [facility] CPT-05710 Level 3 New Patient 01:46:11 SENIOR MARKETING ANALYST Hope landers MD PhD [facility] Procedures Code Procedure Name Date Entry Date Standard Desc ription CPT-G0008 Administration of Influenza Virus Vaccine 13:36:47 CDT CPT-75203 Fluzone High-Dose Intramuscular Suspension 11/15 13:36:47 CDT CPT-J0897 Prolia 60 mg 08:50:41 CDT CPT-21979 Abx/Therapy Injection 08:50:41 CDT CPT-27357 Bone Density 12:06:12 CDT CPT-61205 Bone Density 08:54:40 CDT CPT-OV Office Visit 15:37:02 CDT CPT-86723 Postop F/U Visit 15:47:49 CDT CPT-14422 Postop F/U Visit 15:21:02 CDT CPT-TCMH Transitional Care Mgmt-High 07:52:27 CDT 20 20/06/01 CPT-58293 Venipuncture Draw Fee 13:51:18 CDT CPT-04911 Venipuncture Draw Fee 10:14:55 [employer]IOR MARKETING ANALYST CPT-12051 Venipuncture Draw Fee 13:39:45 [employer]IOR MARKETING [employer]LYST CPT-OV Office Visit 15:11:22 S[employer]IOR MARKETING ANALYST CPT-96357 Venipuncture Draw Fee 09:20:49 S[employer]IOR MARKETING ANALYST CPT-12783 Venipuncture Draw Fee 16:52:15 S[employer]IOR MARKETING ANALYST CPT-92048 Venipuncture Draw Fee 10:37:24 SENIOR MARKETING ANALYST CPT-54503 Venipuncture Draw Fee 08:21:21 SENIOR MARKETING ANALYST CPT-06227 Venipuncture Draw Fee 08:30:20 SENIOR MARKETING ANALYST CPT-61272 Venipuncture Draw Fee 14:53:21 SENIOR MARKETING ANALYST CPT-31040 Venipuncture Draw Fee 09:40:56 SENIOR MARKETING ANALYST CPT-69432 Venipuncture Draw Fee 10:30:47 S[employer]IOR MARKETING ANALYST CPT-38668 Venipuncture Draw Fee 10:46:17 SENIOR MARKETING ANALYST CPT-62768 Venipuncture Draw Fee 11:12:45 SENIOR MARKETING ANALYST CPT-62271 Venipuncture Draw Fee 09:53:33 SENIOR MARKETING ANALYST CPT-34393 Venipuncture Draw Fee 11:53:51 SENIOR MARKETING ANALYST CPT-73591 Venipuncture Draw Fee 10:33:50 SENIOR MARKETING ANALYST CPT-66637 Venipuncture Draw Fee 10:05:01 SENIOR MARKETING ANALYST CPT-81833 Venipuncture Draw Fee 14:32:52 SENIOR MARKETING ANALYST CPT-20442 Venipuncture Draw Fee 09:46:13 SENIOR MARKETING ANALYST CPT-96232 Venipuncture Draw Fee 11:34:27 SENIOR MARKETING ANALYST CPT-70672 Venipuncture Draw Fee 13:17:16 SENIOR MARKETING ANALYST CPT-09608 Venipuncture Draw Fee 12:05:39 CDT CPT-34130 Venipuncture Draw Fee 12:49:12 CDT CPT-72869 Venipuncture Draw Fee 12:37:18 CDT CPT-73820 Venipuncture Draw Fee 10:57:11 CDT CPT-00110 Venipuncture Draw Fee 13:47:40 CDT CPT-83340 Venipuncture Draw Fee 10:02:17 CDT CPT-57714 TB Tubersol 17:32:32 CDT CPT-OV Office Visit 16:21:53 CDT CPT-OV Office Visit 15:49:22 CDT CPT-OV Office Visit 17:16:31 CDT CPT-OV Office Visit 10:43:31 CDT
--- OUTSIDE RECORDS SUMMARY | 2019-02-09 13:36 | XMS REPORT | Clinical Summary ---
Author Author Renaldo, Florecita Munoz Organization [facility] Address Unknown Phone Unavailable Allergies, Adverse [...] Instructions Start Date Stop Date Generic Name [facility] Status Provider Patient Instruction PROLIA 60 MG/ML SOLN 1 shot every 6 months for osteoprosis DENOSUMAB [id number] Active Hope Benavidez MD PhD Active CALCIUM + D + K 750-500-40 MG-UNT-MCG TABS 1 tab by mouth tw ice daily CALCIUM-VITAMIN D-VITAMIN K 62110573231 Active Hope landers MD PhD Active DAILY VALUE MULTIVITAMIN TABS 1 tab by mouth twice daily MULTIPLE VITAMIN 53484433636 Active Hope Benavidez MD PhD Active FISH OIL 306 MG CAPS 1 tab by mouth three times daily OMEGA-3 FATTY ACIDS 27132541414 Active Hope Benavidez MD PhD Active LUTEIN 10 MG TABS 1 tab daily LUTEIN 62311942471 Act cash Hope Benavidez MD PhD Active FLORANEX PACK 1 pack three times daily, for bowel health LACTOBACILLUS 10636710547 Active Hope Benavidez MD PhD Active LOMOTIL 2.5-0.025 MG TABS 1 tab by mouth prn DIPHENOXYLATE-ATROPINE 63355444792 Active Hope Benavidez MD PhD Active TRIAMTERENE-HCTZ 37.5-25 MG TABS 1 tab by mouth daily TRIAMTERENE-HCTZ 57980579087 Active Hope Benavidez MD PhD Acti ve IRON 325 (65 FE) MG TABS 1 tab daily FERROUS SULF ATE 90867995779 Active Hope Benavidez MD PhD Active MAGNESIUM GLUCONATE 250 MG TABS 1 tab tid MAGN ESIUM GLUCONATE 48301042079 Active Adam Yates MD Active ATENOLOL 50 MG TABS 1/2 tab q other day m-w-f ATE NOLOL 56577744343 Active Adam Yates MD Active PROPRANOLOL HCL 80 MG TABS 1 tab tue. and thur. PROPRANOLOL HCL 95272292768 Active Adam Yates MD Active CYCLOBENZAPRINE HCL 10 MG TABS 1 tablet by mouth three times daily as needed for headaches CYCLOBENZAPRINE HCL 52846500216 No Longe r Active Adam Yates MD Active OMEPRAZOLE 20 MG CPDR 1 tablet by mouth daily for GERD OMEPRAZOLE 63685966259 No Longer Active Adam Yates MD A ctive ZOFRAN 8 MG TABS 1 tab by mouth every 12 hours prn 201 05/16/09 ONDANSETRON HCL 44098734444 No Longer Active Adam Yates MD Active PHENADOZ 25 MG SUPP 1 every 4 hrs. PRN PROMETHA ZINE HCL 73279602937 No Longer Active Adam Yates MD Active POTASSIUM CHLORIDE 20 MEQ PACK by mouth twice a day prn POTASSIUM CHLORIDE 62785649372 No Longer Active Adam Yates MD Active PROMETHAZINE HCL 25 MG TABS 1 Q. 4 hr. PRN PROM ETHAZINE HCL 29549766211 No Longer Active Adam Yates MD Active INNOPRAN XL 120 MG [id number] Take one by mouth daily 2 PROPRANOLOL HCL SR BEADS 79174087855 No Longer Active Adam Yates MD A ctive FLAGYL 500 MG TABS 1 pill by mouth three times daily, for diarrh ea METRONIDAZOLE 68653225121 No Longer Active Hope Benavidez MD PhD Active DYAZIDE 37.5-25 MG CAPS 1 qd TRIAMTERENE-HC TZ 07272682643 No Longer Active Hope Benavidez MD PhD Active PROZAC 20 MG CAPS 1 q d FLUOXETINE HCL 39341 056906 No Longer Active Hope Benavidez MD PhD Active SIMVASTATIN 40 MG TABS 1 qd SIMVASTATIN 004 76396911 No Longer Active Adam Yates MD Active MELOXICAM 15 MG TABS 1 qd MELOXICAM 7097320 4519 No Longer Active Adam Yates MD Active IMODIUM A-D 2 MG TABS 2 onset at diarrhea and prn. LOPERAMIDE HCL 85741350138 Active Hope Benavidez MD PhD Active EXCEDRIN EXTRA STRENGTH 250-250-65 MG TABS 1-2 q6h PRN headache 201 04/16/21 [id number] 97710119983 Active Hope Benavidez MD PhD Active FLAGYL 500 MG TABS 1 qid METRONIDAZOLE 47600 919732 No Longer Active Adam Yates MD Active LEVAQUIN 750 MG TABS 1 qd LEVOFLOXACIN 5486 1163671 No Longer Active Adam Yates MD Active ADULT ASPIRIN LOW STRENGTH 81 MG TBDP 1 qd A SPIRIN 43468439493 Active Hope Benavidez MD PhD Active LEVAQUIN 750 MG TABS 1 qd LEVAQUIN 750 MG T ABS 533699 LEVOFLOXACIN Inactive FLAGYL 500 MG TABS 1 qid FLAGYL 500 MG TABS 263598 METRONIDAZOLE Inactive MELOXICAM 15 MG TABS 1 qd MELOXICAM 15 MG T ABS 185999 MELOXICAM Inactive SIMVASTATIN 40 MG TABS 1 qd SIMVASTATIN 40 MG TABS 804546 SIMVASTATIN Inactive PROZAC 20 MG CAPS 1 q d PROZAC 20 MG CAPS 31 0385 FLUOXETINE HCL Inactive DYAZIDE 37.5-25 MG CAPS 1 qd DYAZIDE 37.5 -25 MG CAPS 007219 TRIAMTERENE-HCTZ Inactive INNOPRAN XL 120 MG [id number] Take one by mouth daily 2 INNOPRAN XL 120 MG [id number] PROPRANOLOL HCL SR BEADS Inactive PROMETHAZINE HCL 25 MG TABS 1 Q. 4 hr. PRN PROMETHAZINE HCL 25 MG TABS 754808 PROMETHAZINE HCL Inactive POTASSIUM CHLORIDE 20 MEQ PACK by mouth twice a day prn POTASSIUM CHLORIDE 20 MEQ PACK 778916 POTASSIUM CHLORIDE Inactive PHENADOZ 25 MG SUPP 1 every 4 hrs. PRN PHENADOZ 2 5 MG SUPP 335441 PROMETHAZINE HCL Inactive ZOFRAN 8 MG TABS 1 tab by mouth every 12 hours prn 201 05/16/09 ZOFRAN 8 MG TABS 379349 ONDANSETRON HCL Inactive OMEPRAZOLE 20 MG CPDR 1 tablet by mouth daily for GERD OMEPRAZOLE 20 MG CPDR 478076 OMEPRAZOLE Inactive CYCLOBENZAPRINE HCL 10 MG TABS 1 tablet by mouth three times daily as needed for headaches CYCLOBENZAPRINE HCL 10 MG TABS 449271 CYCLOBENZAPRINE HCL Inactive FLAGYL 500 MG TABS 1 pill by mouth three times daily, for diarrh ea FLAGYL 500 MG TABS 209991 METRONIDAZOLE Inactive Advance Directives Directive Description Start [...] Description blood pressure, diastolic 65 mm[Hg] BP dobsno blood pressure, systolic 111 mm[Hg] BP sys [...] - Chem istry sodium, serum 137 mmol/L 619-006 1866/11/01 urea nitrogen, blood 23 mg/dL 7-18 creatinine, serum 1.50 mg/dL 0.60-1.30 potassium, serum 3.7 mmol/L 3.5-5.2 chloride, serum 100 mmol/L 98-107 carbon dioxide, venous blood 31.8 mmol/L 21.0-32 .0 blood glucose 98 mg/dL 65-110 calcium, serum 8.6 mg/dL 8.5-10.1 sodium, serum 136 mmol/L 256-358 5510/05/02 potassium, serum 4.1 mmol/L 3.5-5.2 chloride, serum [...] Verified By Repeat Analysis 10^3/mm ^3 10*3/mm3 380-198 6381/12/10 leukocyte count, blood 7.8 10^3/MM^3 10*3/mm3 4.6-10.2 [...] 11 .6-14.8 platelet count 102 10^3/MM^3 10*3/mm3 490-356 5651/01/08 leukocyte count, blood 9.0 10^3/MM^3 10*3/mm3 4.6-10.2 [...] 11 .6-14.8 platelet count 133 10^3/MM^3 10*3/mm3 896-479 7996/01/17 leukocyte count, blood 3.1 10^3/MM^3 10*3/mm3 4.6-10.2 [...] Panel - Chemistry sodium, serum 140 mmol/L 150-972 2449/01/06 potassium, serum 3.4 mmol/L 3.5-5.2 chloride, serum [...] 0.40 mg/dL 0.00-1.00 sodium, serum 142 mmol/L 523-380 6574/01/03 potassium, serum 3.4 mmol/L 3.5-5.2 chloride, serum [...] 0.50 mg/dL 0.00-1.00 sodium, serum 139 mmol/L 293-245 0421/12/03 potassium, serum 3.7 mmol/L 3.5-5.2 chloride, serum [...] 0.40 mg/dL 0.00-1.00 sodium, serum 136 mmol/L 299-831 5649/04/03 potassium, serum 3.7 mmol/L 3.5-5.2 chloride, serum [...] 0.40 mg/dL 0.00-1.00 sodium, serum 139 mmol/L 837-202 0978/02/18 potassium, serum 3.6 mmol/L 3.5-5.2 chloride, serum [...] 0.50 mg/dL 0.00-1.00 sodium, serum 138 mmol/L 507-962 3526/08/14 potassium, serum 4.0 mmol/L 3.5-5.2 chloride, serum [...] 0.40 mg/dL 0.00-1.00 sodium, serum 139 mmol/L 711-082 4020/01/21 potassium, serum 3.4 mmol/L 3.5-5.2 chloride, serum [...] 0.40 mg/dL 0.00-1.00 sodium, serum 138 mmol/L 301-135 0462/01/28 potassium, serum 3.2 mmol/L 3.5-5.2 chloride, serum [...] 0.40 mg/dL 0.00-1.00 sodium, serum 140 mmol/L 875-369 2867/02/04 potassium, serum 3.6 mmol/L 3.5-5.2 chloride, serum [...] 0.70 mg/dL 0.00-1.00 sodium, serum 136 mmol/L 660-896 1697/02/11 potassium, serum 3.1 mmol/L 3.5-5.2 chloride, serum 97 mmol/L 98-107 carbon dioxide, venous blood 31.8 mmol/L 21.0-32 .0 blood glucose 99 mg/dL 65-110 urea nitrogen, blood 20 mg/dL 7-18 creatinine, serum 0.90 mg/dL 0.60-1.30 alanine aminotransferase (SGPT), serum 11 U/L -11 aspartate aminotransferase (SGOT), serum 15 U/L 15-37 [...] 11 .6-14.8 platelet count 134 10^3/MM^3 10*3/mm3 949-458 6328/02/11 leukocyte count, blood 4.8 10^3/MM^3 10*3/mm3 4.6-10.2 [...] 11 .6-14.8 platelet count 102 10^3/MM^3 10*3/mm3 111-940 0917/02/04 leukocyte count, blood 3.6 10^3/MM^3 10*3/mm3 4.6-10.2 [...] 11 .6-14.8 platelet count 70 10^3/MM^3 10*3/mm3 558-181 1606/01/28 leukocyte count, blood 4.2 10^3/MM^3 10*3/mm3 4.6-10.2 [...] 11 .6-14.8 platelet count 73 10^3/MM^3 10*3/mm3 218-079 1348/08/14 leukocyte count, blood 5.8 10^3/MM^3 10*3/mm3 4.6-10.2 [...] 11 .6-14.8 platelet count 193 10^3/MM^3 10*3/mm3 351-663 0130/04/03 leukocyte count, blood 5.6 10^3/MM^3 10*3/mm3 4.6-10.2 [...] 11 .6-14.8 platelet count 246 10^3/MM^3 10*3/mm3 553-722 2517/12/03 leukocyte count, blood 8.2 10^3/MM^3 10*3/mm3 4.6-10.2 [...] 11 .6-14.8 platelet count 98 10^3/MM^3 10*3/mm3 169-342 9260/01/06 leukocyte count, blood 7.6 10^3/MM^3 10*3/mm3 4.6-10.2 [...] 11 .6-14.8 platelet count 132 10^3/MM^3 10*3/mm3 395-390 3246/01/03 leukocyte count, blood 8.1 10^3/MM^3 10*3/mm3 4.6-10.2 [...] 11 .6-14.8 platelet count 96 10^3/MM^3 10*3/mm3 323-723 1276/01/21 leukocyte count, blood 4.9 10^3/MM^3 10*3/mm3 4.6-10.2 [...] Diff/Morphology - Chemistry sodium, serum 141 mmol/L 705-569 4332/01/14 potassium, serum 3.9 mmol/L 3.5-5.2 chloride, serum [...] 0.50 mg/dL 0.00-1.00 sodium, serum 140 mmol/L 378-172 9428/12/17 potassium, serum 3.3 mmol/L 3.5-5.2 chloride, serum [...] 0.40 mg/dL 0.00-1.00 sodium, serum 138 mmol/L 325-065 4142/12/24 potassium, serum 3.7 mmol/L 3.5-5.2 chloride, serum [...] 0.50 mg/dL 0.00-1.00 sodium, serum 141 mmol/L 275-779 4601/11/25 potassium, serum 3.9 mmol/L 3.5-5.2 chloride, serum [...] 0.50 mg/dL 0.00-1.00 sodium, serum 137 mmol/L 475-649 8366/11/12 potassium, serum 3.2 mmol/L 3.5-5.2 chloride, serum [...] 0.40 mg/dL 0.00-1.00 sodium, serum 128 mmol/L 125-247 6969/10/29 potassium, serum 2.6 mmol/L 3.5-5.2 chloride, serum [...] 0.50 mg/dL 0.00-1.00 sodium, serum 138 mmol/L 497-718 8161/11/05 potassium, serum 3.9 mmol/L 3.5-5.2 chloride, serum [...] Manual Diff/Morphology - Hematology leukocyte count, blood 12.1 10^3/MM^3 10*3/mm3 4.6-10.2 neutrophils as percent of blood leukocytes 86.3 % 42.2-75.2 monocytes as percent of blood leukocytes 5.2 % 1.7-9.3 lymphocytes as percent of blood leukocytes 6.4 % 20.5-51.1 erythrocyte (RBC) count 3.89 10^6/MM^3 10*6/mm3 4.04-5.4 8 hemoglobin, blood 11.2 g/dL 12.0-16.0 erythrocyte (RBC) count 4.32 10^6/MM^3 10*6/mm3 4.04-5.4 8 lymphocytes as percent of blood leukocytes 7.0 % 20.5-51.1 monocytes as percent of blood leukocytes 13.4 % 1.7-9.3 neutrophils as percent of blood leukocytes 76.8 % 42.2-75.2 leukocyte count, blood 26.3 10^3/MM^3 10*3/mm3 4.6-10.2 hematocrit, blood 34.3 % 36.0-46.0 mean corpuscular volume, RBC 88 fL 80-97 mean corpuscular hemoglobin, RBC 28.8 pg 27. 0-31.2 mean corpuscular hemoglobin concentration, RBC 32.6 G/DL % 31.8-35.4 red blood cell distribution width 18.2 % 11 .6-14.8 platelet count 157 10^3/MM^3 10*3/mm3 244-705 1042/11/05 leukocyte count, blood 16.4 10^3/MM^3 10*3/mm3 4.6-10.2 [...] 11 .6-14.8 platelet count 215 10^3/MM^3 10*3/mm3 777-702 0596/11/25 leukocyte count, blood 21.1 10^3/MM^3 10*3/mm3 4.6-10.2 [...] 11 .6-14.8 platelet count 46 10^3/MM^3 10*3/mm3 054-438 7034/12/17 leukocyte count, blood 18.6 10^3/MM^3 10*3/mm3 4.6-10.2 [...] 11 .6-14.8 platelet count 75 10^3/MM^3 10*3/mm3 768-009 2827/12/24 leukocyte count, blood 14.0 10^3/MM^3 10*3/mm3 4.6-10.2 [...] 11 .6-14.8 platelet count 66 10^3/MM^3 10*3/mm3 554-592 0059/01/14 leukocyte count, blood 6.2 10^3/MM^3 10*3/mm3 4.6-10.2 [...] 11 .6-14.8 platelet count 22 10^3/MM^3 10*3/mm3 594-392 0973/10/29 hemoglobin, blood 12.3 g/dL 12.0-16.0 hematocrit, blood 37.8 % 36.0-46.0 mean corpuscular volume, RBC 88 fL 80-97 mean corpuscular hemoglobin, RBC 28.5 pg 27. 0-31.2 mean corpuscular hemoglobin concentration, RBC 32.6 G/DL % 31.8-35.4 red blood cell distribution width 17.3 % 11 .6-14.8 platelet count 268 10^3/MM^3 10*3/mm3 142-424 Lab Report: CBC W/DIFF, [...] - Chem istry sodium, serum 142 mmol/L 238-568 0223/12/10 potassium, serum 3.9 mmol/L 3.5-5.2 chloride, serum [...] 0.40 mg/dL 0.00-1.00 sodium, serum 141 mmol/L 089-899 3858/11/19 potassium, serum 3.9 mmol/L 3.5-5.2 chloride, serum [...] serum, total 0.50 mg/dL 0.00-1.00 Lab Report: Comp. Metabolic Panel, CBC W /DIFF, Manual Diff/Morphology - Chemistry sodium, serum 142 mmol/L 271-649 6670/12/31 potassium, serum 3.6 mmol/L 3.5-5.2 chloride, serum [...] Panel - Chemistry cholesterol, serum 209 mg/dL 263-807 1830/09/11 triglyceride, serum, fasting 113 mg/dL 30-200 HDL cholesterol, serum 50 mg/dL 32-96 LDL cholesterol, serum 136 mg/dL 0-130 Encounters Code Encounter Date Provider Facility CPT-45901 Level 4 Est. Patient 20:04:51 CDT Hope cohn MD PhD [facility] CPT-99580 Level 3 New Patient 01:46:11 GRANT COORDINATOR Hope landers MD PhD [facility] Procedures Code Procedure Name Date Entry Date Standard Desc ription CPT-G0008 Administration of Influenza Virus Vaccine 13:36:47 CDT CPT-74590 Fluzone High-Dose Intramuscular Suspension 11/15 13:36:47 CDT CPT-J0897 Prolia 60 mg 08:50:41 CDT CPT-00807 Abx/Therapy Injection 08:50:41 CDT CPT-95215 Bone Density 12:06:12 CDT CPT-99877 Bone Density 08:54:40 CDT CPT-OV Office Visit 15:37:02 CDT CPT-33762 Postop F/U Visit 15:47:49 CDT CPT-94492 Postop F/U Visit 15:21:02 CDT CPT-[facility] Transitional Care Mgmt-High 07:52:27 CDT 20 20/06/01 CPT-85527 Venipuncture Draw Fee 13:51:18 CDT CPT-04205 Venipuncture Draw Fee 10:14:55 GRANT COORDINATOR CPT-07715 Venipuncture Draw Fee 13:39:45 GRANT COORDINATOR CPT-OV Office Visit 15:11:22 GRANT COORDINATOR CPT-22030 Venipuncture Draw Fee 09:20:49 GRANT COORDINATOR CPT-39109 Venipuncture Draw Fee 16:52:15 GRANT COORDINATOR CPT-47986 Venipuncture Draw Fee 10:37:24 GRANT COORDINATOR CPT-78590 Venipuncture Draw Fee 08:21:21 GRANT COORDINATOR CPT-66873 Venipuncture Draw Fee 08:30:20 GRANT COORDINATOR CPT-07909 Venipuncture Draw Fee 14:53:21 GRANT COORDINATOR CPT-47135 Venipuncture Draw Fee 09:40:56 GRANT COORDINATOR CPT-38626 Venipuncture Draw Fee 10:30:47 GRANT COORDINATOR CPT-33907 Venipuncture Draw Fee 10:46:17 GRANT COORDINATOR CPT-70822 Venipuncture Draw Fee 11:12:45 GRANT COORDINATOR CPT-65727 Venipuncture Draw Fee 09:53:33 GRANT COORDINATOR CPT-64363 Venipuncture Draw Fee 11:53:51 GRANT COORDINATOR CPT-61878 Venipuncture Draw Fee 10:33:50 GRANT COORDINATOR CPT-58392 Venipuncture Draw Fee 10:05:01 GRANT COORDINATOR CPT-94842 Venipuncture Draw Fee 14:32:52 GRANT COORDINATOR CPT-05756 Venipuncture Draw Fee 09:46:13 GRANT COORDINATOR CPT-38456 Venipuncture Draw Fee 11:34:27 GRANT COORDINATOR CPT-02241 Venipuncture Draw Fee 13:17:16 GRANT COORDINATOR CPT-45009 Venipuncture Draw Fee 12:05:39 CDT CPT-66446 Venipuncture Draw Fee 12:49:12 CDT CPT-49991 Venipuncture Draw Fee 12:37:18 CDT CPT-96552 Venipuncture Draw Fee 10:57:11 CDT CPT-80226 Venipuncture Draw Fee 13:47:40 CDT CPT-81833 Venipuncture Draw Fee 10:02:17 CDT CPT-05555 TB Tubersol 17:32:32 CDT CPT-OV Office Visit 16:21:53 CDT CPT-OV Office Visit 15:49:22 CDT CPT-OV Office Visit 17:16:31 CDT CPT-OV Office Visit 10:43:31 CDT
--- OUTSIDE RECORDS SUMMARY | 2019-02-09 13:36 | XMS REPORT | Clinical Summary ---
Author Author Florecita Macario Organization [facility] Address Unknown Phone Unavailable Allergies, Adverse Reactions, [...] cohn MD PhD UNSPECIFIED VENOUS INSUFFICIENCY ICD-459.81 [place] [address] Adam Yates MD ADENOCARCINOMA, ASCENDING [...] mouth every 12 hours prn ONDANSETRON HCL 51600695242 Active Laura Elder Active FLAGYL 500 MG TABS 1 pill by mouth three times daily, for diarrh ea METRONIDAZOLE 88140023347 No Longer Active Hope Benavidez MD PhD Active MAGNESIUM GLUCONATE 250 MG TABS 1 tab daily MAG NESIUM GLUCONATE 82475061679 Active Hope Benavidez MD PhD Active DYAZIDE 37.5-25 MG CAPS 1 qd TRIAMTERENE-HC TZ 82399016171 No Longer Active Hope Benavidez MD PhD Active PROZAC 20 MG CAPS 1 q d FLUOXETINE HCL 98776 963526 No Longer Active Hope Benavidez MD PhD Active INNOPRAN XL 120 MG [id number] Take one by mouth daily PROPRANOLOL HCL SR BEADS 85915322229 Active Hope Benavidez MD PhD Active POTASSIUM CHLORIDE 20 MEQ PACK by mouth twice a day prn POTASSIUM CHLORIDE 26473544671 Active Adam Yates MD Activ e CYCLOBENZAPRINE HCL 10 MG TABS 1 tablet by mouth three times daily as needed for headaches CYCLOBENZAPRINE HCL 45174994055 Active Selena Yates MD Active SIMVASTATIN 40 MG TABS 1 qd SIMVASTATIN 004 81488533 No Longer Active Adam Yates MD Active MELOXICAM 15 MG TABS 1 qd MELOXICAM 6552121 9636 No Longer Active Adam Yates MD Active ATENOLOL 50 MG TABS 1/2 tab q other day ATENOLOL 91073967213 Active Hope Benavidez MD PhD Active OMEPRAZOLE 20 MG CPDR 1 tablet by mouth daily for GERD OMEPRAZOLE 25528983493 Active Hope Benavidez MD PhD Active IMODIUM A-D 2 MG TABS 2 onset at diarrhea and prn. LOPERAMIDE HCL 32685553480 Active Hope Benavidez MD PhD Active PHENADOZ 25 MG SUPP 1 every 4 hrs. PRN PROMETHAZINE HCL 10587108580 Active Hope Benavidez MD PhD Active PROMETHAZINE HCL 25 MG TABS 1 Q. 4 hr. PRN PROMETH AZINE HCL 38571097220 Active Hope Benavidez MD PhD Active EXCEDRIN EXTRA STRENGTH 250-250-65 MG TABS 1-2 q6h PRN headache 201 04/16/21 HNTJICX-RXPHVTOIWLVLS-PDXXIETL 96834527057 Active Hope Benavidez MD PhD Active FLAGYL 500 MG TABS 1 qid METRONIDAZOLE 81161 130715 No Longer Active Adam Yates MD Active LEVAQUIN 750 MG TABS 1 qd LEVOFLOXACIN 5486 9563521 No Longer Active Adam Yates MD Active ADULT ASPIRIN LOW STRENGTH 81 MG TBDP 1 qd A SPIRIN 26341422414 Active Hope Benavidez MD PhD Active LEVAQUIN 750 MG TABS 1 qd LEVAQUIN 750 MG T ABS 383788 LEVOFLOXACIN Inactive FLAGYL 500 MG TABS 1 qid FLAGYL 500 MG TABS 026503 METRONIDAZOLE Inactive MELOXICAM 15 MG TABS 1 qd MELOXICAM 15 MG T ABS 699880 MELOXICAM Inactive SIMVASTATIN 40 MG TABS 1 qd SIMVASTATIN 40 MG TABS 172268 SIMVASTATIN Inactive PROZAC 20 MG CAPS 1 q d PROZAC 20 MG CAPS 31 0385 FLUOXETINE HCL Inactive DYAZIDE 37.5-25 MG CAPS 1 qd DYAZIDE 37.5 -25 MG CAPS 263429 TRIAMTERENE-HCTZ Inactive FLAGYL 500 MG TABS 1 pill by mouth three times daily, for diarrh ea FLAGYL 500 MG TABS 628452 METRONIDAZOLE Inactive Advance Directives Directive Description Start [...] - Chem istry sodium, serum 137 mmol/L 567-024 6960/11/01 potassium, serum 3.7 mmol/L 3.5-5.2 chloride, serum 100 mmol/L 98-107 carbon dioxide, venous blood 31.8 mmol/L 21.0-32 .0 blood glucose 98 mg/dL 65-110 calcium, serum 8.6 mg/dL 8.5-10.1 urea nitrogen, blood 23 mg/dL 7-18 creatinine, serum 1.50 mg/dL 0.60-1.30 sodium, serum 136 mmol/L 367-249 8442/05/02 potassium, serum 4.1 mmol/L 3.5-5.2 chloride, serum 99 mmol/L 98-107 carbon dioxide, venous blood 30.7 mmol/L 21.0-32 .0 blood glucose 79 mg/dL 65-110 calcium, serum 8.7 mg/dL 8.5-10.1 urea nitrogen, blood 11 mg/dL 7-18 creatinine, serum 1.10 mg/dL 0.60-1.30 Lab Report: [facility] - Chemistry sodium, serum 141 [...] 11 .6-14.8 platelet count 133 10^3/MM^3 10*3/mm3 322-672 5790/01/17 leukocyte count, blood 3.1 10^3/MM^3 10*3/mm3 4.6-10.2 [...] 11 .6-14.8 platelet count 22 10^3/MM^3 10*3/mm3 848-415 3330/11/19 leukocyte count, blood 10.4 10^3/MM^3 10*3/mm3 4.6-10.2 [...] Verified By Repeat Analysis 10^3/mm ^3 10*3/mm3 431-593 5019/12/10 leukocyte count, blood 7.8 10^3/MM^3 10*3/mm3 4.6-10.2 [...] Panel - Chemistry sodium, serum 139 mmol/L 120-001 1674/12/03 potassium, serum 3.7 mmol/L 3.5-5.2 chloride, serum [...] 0.40 mg/dL 0.00-1.00 sodium, serum 142 mmol/L 475-186 2783/01/03 potassium, serum 3.4 mmol/L 3.5-5.2 chloride, serum [...] 0.50 mg/dL 0.00-1.00 sodium, serum 137 mmol/L 106-112 3103/10/01 potassium, serum 3.5 mmol/L 3.5-5.2 chloride, serum [...] 0.60 mg/dL 0.00-1.00 sodium, serum 136 mmol/L 743-373 2293/10/08 potassium, serum 3.1 mmol/L 3.5-5.2 chloride, serum [...] 0.60 mg/dL 0.00-1.00 sodium, serum 139 mmol/L 804-623 6620/10/17 potassium, serum 3.1 mmol/L 3.5-5.2 chloride, serum [...] 0.30 mg/dL 0.00-1.00 sodium, serum 140 mmol/L 821-779 3510/01/06 potassium, serum 3.4 mmol/L 3.5-5.2 chloride, serum [...] 0.40 mg/dL 0.00-1.00 sodium, serum 139 mmol/L 570-726 8289/01/21 potassium, serum 3.4 mmol/L 3.5-5.2 chloride, serum [...] 0.40 mg/dL 0.00-1.00 sodium, serum 138 mmol/L 922-227 9659/01/28 potassium, serum 3.2 mmol/L 3.5-5.2 chloride, serum [...] 0.40 mg/dL 0.00-1.00 sodium, serum 140 mmol/L 562-377 4892/02/04 potassium, serum 3.6 mmol/L 3.5-5.2 chloride, serum [...] 0.70 mg/dL 0.00-1.00 sodium, serum 136 mmol/L 750-368 7854/02/11 potassium, serum 3.1 mmol/L 3.5-5.2 chloride, serum [...] 0.50 mg/dL 0.00-1.00 sodium, serum 138 mmol/L 409-096 4647/08/14 potassium, serum 4.0 mmol/L 3.5-5.2 chloride, serum [...] 0.40 mg/dL 0.00-1.00 sodium, serum 136 mmol/L 751-108 3084/04/03 potassium, serum 3.7 mmol/L 3.5-5.2 chloride, serum [...] 0.40 mg/dL 0.00-1.00 sodium, serum 139 mmol/L 115-393 5515/02/18 potassium, serum 3.6 mmol/L 3.5-5.2 chloride, serum [...] 11 .6-14.8 platelet count 246 10^3/MM^3 10*3/mm3 832-066 5866/08/14 leukocyte count, blood 5.8 10^3/MM^3 10*3/mm3 4.6-10.2 [...] 11 .6-14.8 platelet count 193 10^3/MM^3 10*3/mm3 660-520 0509/02/18 leukocyte count, blood 4.0 10^3/MM^3 10*3/mm3 4.6-10.2 [...] 11 .6-14.8 platelet count 134 10^3/MM^3 10*3/mm3 647-273 6044/02/11 leukocyte count, blood 4.8 10^3/MM^3 10*3/mm3 4.6-10.2 [...] 11 .6-14.8 platelet count 102 10^3/MM^3 10*3/mm3 060-144 4734/02/04 leukocyte count, blood 3.6 10^3/MM^3 10*3/mm3 4.6-10.2 [...] 11 .6-14.8 platelet count 70 10^3/MM^3 10*3/mm3 016-008 4985/01/28 leukocyte count, blood 4.2 10^3/MM^3 10*3/mm3 4.6-10.2 [...] 11 .6-14.8 platelet count 73 10^3/MM^3 10*3/mm3 102-616 8091/01/03 leukocyte count, blood 8.1 10^3/MM^3 10*3/mm3 4.6-10.2 [...] 11 .6-14.8 platelet count 96 10^3/MM^3 10*3/mm3 174-449 1616/01/21 leukocyte count, blood 4.9 10^3/MM^3 10*3/mm3 4.6-10.2 [...] .6-14.8 platelet count 38 recounted 10^3/mm^3 10*3/mm3 465-622 6812/10/08 leukocyte count, blood 2.9 10^3/MM^3 10*3/mm3 4.6-10.2 [...] 11 .6-14.8 platelet count 229 10^3/MM^3 10*3/mm3 298-723 7731/10/17 leukocyte count, blood 12.0 10^3/MM^3 10*3/mm3 4.6-10.2 [...] 11 .6-14.8 platelet count 232 10^3/MM^3 10*3/mm3 609-789 3807/10/01 leukocyte count, blood 8.3 10^3/MM^3 10*3/mm3 4.6-10.2 [...] 11 .6-14.8 platelet count 378 10^3/MM^3 10*3/mm3 511-081 6463/01/06 leukocyte count, blood 7.6 10^3/MM^3 10*3/mm3 4.6-10.2 [...] 11 .6-14.8 platelet count 132 10^3/MM^3 10*3/mm3 523-503 6282/12/03 leukocyte count, blood 8.2 10^3/MM^3 10*3/mm3 4.6-10.2 [...] Diff/Morphology - Chemistry sodium, serum 141 mmol/L 116-790 5875/11/25 potassium, serum 3.9 mmol/L 3.5-5.2 chloride, serum [...] 0.50 mg/dL 0.00-1.00 sodium, serum 137 mmol/L 686-370 6184/11/12 potassium, serum 3.2 mmol/L 3.5-5.2 chloride, serum [...] 0.40 mg/dL 0.00-1.00 sodium, serum 140 mmol/L 683-258 5339/12/17 potassium, serum 3.3 mmol/L 3.5-5.2 chloride, serum [...] 0.40 mg/dL 0.00-1.00 sodium, serum 138 mmol/L 099-501 7992/12/24 potassium, serum 3.7 mmol/L 3.5-5.2 chloride, serum [...] 0.50 mg/dL 0.00-1.00 sodium, serum 135 mmol/L 533-208 3767/10/22 potassium, serum 3.0 mmol/L 3.5-5.2 chloride, serum [...] 0.50 mg/dL 0.00-1.00 sodium, serum 138 mmol/L 228-003 0098/11/05 potassium, serum 3.9 mmol/L 3.5-5.2 chloride, serum [...] 0.40 mg/dL 0.00-1.00 sodium, serum 128 mmol/L 794-353 9496/10/29 potassium, serum 2.6 mmol/L 3.5-5.2 chloride, serum [...] 0.50 mg/dL 0.00-1.00 sodium, serum 141 mmol/L 954-377 1050/01/14 potassium, serum 3.9 mmol/L 3.5-5.2 chloride, serum [...] 11 .6-14.8 platelet count 22 10^3/MM^3 10*3/mm3 441-768 9576/10/22 leukocyte count, blood 14.7 10^3/MM^3 10*3/mm3 4.6-10.2 [...] 11 .6-14.8 platelet count 428 10^3/MM^3 10*3/mm3 228-520 0122/11/05 leukocyte count, blood 16.4 10^3/MM^3 10*3/mm3 4.6-10.2 [...] 11 .6-14.8 platelet count 215 10^3/MM^3 10*3/mm3 973-038 0392/11/12 leukocyte count, blood 12.1 10^3/MM^3 10*3/mm3 4.6-10.2 [...] 11 .6-14.8 platelet count 157 10^3/MM^3 10*3/mm3 042-827 2236/10/29 leukocyte count, blood 26.3 10^3/MM^3 10*3/mm3 4.6-10.2 [...] 11 .6-14.8 platelet count 268 10^3/MM^3 10*3/mm3 188-310 0869/12/24 leukocyte count, blood 14.0 10^3/MM^3 10*3/mm3 4.6-10.2 [...] 11 .6-14.8 platelet count 66 10^3/MM^3 10*3/mm3 772-605 5412/11/25 leukocyte count, blood 21.1 10^3/MM^3 10*3/mm3 4.6-10.2 [...] 11 .6-14.8 platelet count 46 10^3/MM^3 10*3/mm3 228-108 3070/12/17 leukocyte count, blood 18.6 10^3/MM^3 10*3/mm3 4.6-10.2 [...] - Chem istry sodium, serum 141 mmol/L 232-440 0268/11/19 potassium, serum 3.9 mmol/L 3.5-5.2 chloride, serum [...] 0.50 mg/dL 0.00-1.00 sodium, serum 142 mmol/L 853-111 6062/12/10 potassium, serum 3.9 mmol/L 3.5-5.2 chloride, serum [...] Diff/Morphology - Chemistry sodium, serum 142 mmol/L 518-766 4241/12/31 potassium, serum 3.6 mmol/L 3.5-5.2 chloride, serum [...] 12.0-16.0 Encounters Code Encounter Date Provider Facility CPT-87361 Level 3 New Patient 01:46:11 COMMUNICATIONS PROGRAM MANAGER Hope landers MD PhD [facility] Procedures Code Procedure Name Date Entry Date Standard Desc ription CPT-45853 Postop F/U Visit 15:47:49 CDT CPT-75794 Postop F/U Visit 15:21:02 CDT CPT-TCMH Transitional Care Mgmt-High 07:52:27 CDT 20 20/06/01 CPT-00533 Venipuncture Draw Fee 13:51:18 CDT CPT-47970 Venipuncture Draw Fee 10:14:55 COMMUNICATIONS PROGRAM MANAGER CPT-88305 Venipuncture Draw Fee 13:39:45 COMMUNICATIONS PROGRAM MANAGER CPT-OV Office Visit 15:11:22 COMMUNICATIONS PROGRAM MANAGER CPT-10588 Venipuncture Draw Fee 09:20:49 COMMUNICATIONS PROGRAM MANAGER CPT-72225 Venipuncture Draw Fee 16:52:15 COMMUNICATIONS PROGRAM MANAGER CPT-73897 Venipuncture Draw Fee 10:37:24 COMMUNICATIONS PROGRAM MANAGER CPT-97386 Venipuncture Draw Fee 08:21:21 COMMUNICATIONS PROGRAM MANAGER CPT-45506 Venipuncture Draw Fee 08:30:20 COMMUNICATIONS PROGRAM MANAGER CPT-26843 Venipuncture Draw Fee 14:53:21 COMMUNICATIONS PROGRAM MANAGER CPT-64720 Venipuncture Draw Fee 09:40:56 COMMUNICATIONS PROGRAM MANAGER CPT-84293 Venipuncture Draw Fee 10:30:47 COMMUNICATIONS PROGRAM MANAGER CPT-04154 Venipuncture Draw Fee 10:46:17 COMMUNICATIONS PROGRAM MANAGER CPT-20891 Venipuncture Draw Fee 11:12:45 COMMUNICATIONS PROGRAM MANAGER CPT-22859 Venipuncture Draw Fee 09:53:33 COMMUNICATIONS PROGRAM MANAGER CPT-94402 Venipuncture Draw Fee 11:53:51 COMMUNICATIONS PROGRAM MANAGER CPT-91491 Venipuncture Draw Fee 10:33:50 COMMUNICATIONS PROGRAM MANAGER CPT-25269 Venipuncture Draw Fee 10:05:01 COMMUNICATIONS PROGRAM MANAGER CPT-89290 Venipuncture Draw Fee 14:32:52 COMMUNICATIONS PROGRAM MANAGER CPT-25354 Venipuncture Draw Fee 09:46:13 COMMUNICATIONS PROGRAM MANAGER CPT-61595 Venipuncture Draw Fee 11:34:27 COMMUNICATIONS PROGRAM MANAGER CPT-30985 Venipuncture Draw Fee 13:17:16 COMMUNICATIONS PROGRAM MANAGER CPT-29837 Venipuncture Draw Fee 12:05:39 CDT CPT-89490 Venipuncture Draw Fee 12:49:12 CDT CPT-22339 Venipuncture Draw Fee 12:37:18 CDT CPT-87798 Venipuncture Draw Fee 10:57:11 CDT CPT-17673 Venipuncture Draw Fee 13:47:40 CDT CPT-40070 Venipuncture Draw Fee 10:02:17 CDT CPT-26775 TB Tubersol 17:32:32 CDT CPT-OV Office Visit 16:21:53 CDT CPT-OV Office Visit 15:49:22 CDT CPT-OV Office Visit 17:16:31 CDT CPT-OV Office Visit 10:43:31 CDT
--- OUTSIDE RECORDS SUMMARY | 2019-02-09 13:37 | XMS REPORT | Clinical Summary ---
Author Author Renaldo, Florecita Munoz Organization [facility] Address Unknown Phone Unavailable Allergies, Adverse [...] cohn MD PhD UNSPECIFIED VENOUS INSUFFICIENCY ICD-459.81 [place] [facility] Adam Yates MD ADENOCARCINOMA, ASCENDING COLON [...] 1 injection every 2 weeks 01/09 CYANOCOBALAMIN [id number] Active Laura Elder Active VITAMIN D3 4000 IU 1 tab 3 times daily VITAMIN D3 400 0 IU Active Hope Benavidez MD PhD Active BACTRIM DS 800-160 MG TABS 1 pill by mouth twice daily, for UTI SULFAMETHOXAZOLE-TRIMETHOPRIM 09241335547 No Longer Active Lisa Benavidez MD PhD Active PROLIA 60 MG/ML SOLN 1 shot every 6 months for osteoprosis DENOSUMAB 49151655747 Active Hope Benavidez MD PhD Active CALCIUM + D + K 750-500-40 MG-UNT-MCG TABS 1 tab by mouth tw ice daily CALCIUM-VITAMIN D-VITAMIN K 35906960152 Active Hope landers MD PhD Active DAILY VALUE MULTIVITAMIN TABS 1 tab by mouth twice daily MULTIPLE VITAMIN 91314046862 Active Hope Benavidez MD PhD Active FISH OIL 306 MG CAPS 1 tab by mouth three times daily OMEGA-3 FATTY ACIDS 70841744998 Active Hope Benavidez MD PhD Active LUTEIN 10 MG TABS 1 tab daily LUTEIN 98943620074 Act cash Hope Benavidez MD PhD Active FLORANEX PACK 1 pack three times daily, for bowel health LACTOBACILLUS 67375252081 Active Hope Benavidez MD PhD Active LOMOTIL 2.5-0.025 MG TABS 1 tab by mouth prn DIPHENOXYLATE-ATROPINE 25568874873 Active Hope Benavidez MD PhD Active TRIAMTERENE-HCTZ 37.5-25 MG TABS 1 tab by mouth daily TRIAMTERENE-HCTZ 77870263361 Active Hope Benavidez MD PhD Acti ve IRON 325 (65 FE) MG TABS 1 tab daily FERROUS SULF ATE 62183985786 Active Hope Benavidez MD PhD Active MAGNESIUM GLUCONATE 250 MG TABS 1 tab tid MAGN ESIUM GLUCONATE 55352980981 Active Adam Yates MD Active ATENOLOL 50 MG TABS 1/2 tab q other day m-w-f ATE NOLOL 54143843115 Active Hope Benavidez MD PhD Active PROPRANOLOL HCL 80 MG TABS 1 tab tue. and thur. PROPRANOLOL HCL 58541232993 Active Adam Yates MD Active CYCLOBENZAPRINE HCL 10 MG TABS 1 tablet by mouth three times daily as needed for headaches CYCLOBENZAPRINE HCL 21571765917 No Longe r Active Adam Yates MD Active OMEPRAZOLE 20 MG CPDR 1 tablet by mouth daily for GERD OMEPRAZOLE 40489898497 No Longer Active Adam Yates MD A ctive ZOFRAN 8 MG TABS 1 tab by mouth every 12 hours prn 201 05/16/09 ONDANSETRON HCL 77463726092 No Longer Active Adam Yates MD Active PHENADOZ 25 MG SUPP 1 every 4 hrs. PRN PROMETHA ZINE HCL 74166257083 No Longer Active Adam Yates MD Active POTASSIUM CHLORIDE 20 MEQ PACK by mouth twice a day prn POTASSIUM CHLORIDE 47202636276 No Longer Active Adam Yates MD Active PROMETHAZINE HCL 25 MG TABS 1 Q. 4 hr. PRN PROM ETHAZINE HCL 81713480886 No Longer Active Adam Yates MD Active INNOPRAN XL 120 MG EM69D-PLE Take one by mouth daily 2 PROPRANOLOL HCL SR BEADS 90676121417 No Longer Active Adam Yates MD A ctive FLAGYL 500 MG TABS 1 pill by mouth three times daily, for diarrh ea METRONIDAZOLE 24466569883 No Longer Active Hope Benavidez MD PhD Active DYAZIDE 37.5-25 MG CAPS 1 qd TRIAMTERENE-HC TZ 10502538960 No Longer Active Hope Benavidez MD PhD Active PROZAC 20 MG CAPS 1 q d FLUOXETINE HCL 04700 285713 No Longer Active Hope Benavidez MD PhD Active SIMVASTATIN 40 MG TABS 1 qd SIMVASTATIN 004 96886027 No Longer Active Adam Yates MD Active MELOXICAM 15 MG TABS 1 qd MELOXICAM 7762534 4125 No Longer Active Adam Yates MD Active IMODIUM A-D 2 MG TABS 2 onset at diarrhea and prn. LOPERAMIDE HCL 61855174834 Active Hope Benavidez MD PhD Active EXCEDRIN EXTRA STRENGTH 250-250-65 MG TABS 1-2 q6h PRN headache 201 04/16/21 [id number] 76192054399 Active Hope Benavidez MD PhD Active FLAGYL 500 MG TABS 1 qid METRONIDAZOLE 80567 228490 No Longer Active Adam Yates MD Active LEVAQUIN 750 MG TABS 1 qd LEVOFLOXACIN 5486 6236439 No Longer Active Adam Yates MD Active ADULT ASPIRIN LOW STRENGTH 81 MG TBDP 1 qd A SPIRIN 78323306537 Active Hope Benavidez MD PhD Active LEVAQUIN 750 MG TABS 1 qd LEVAQUIN 750 MG T ABS 115523 LEVOFLOXACIN Inactive FLAGYL 500 MG TABS 1 qid FLAGYL 500 MG TABS 852733 METRONIDAZOLE Inactive MELOXICAM 15 MG TABS 1 qd MELOXICAM 15 MG T ABS 531268 MELOXICAM Inactive SIMVASTATIN 40 MG TABS 1 qd SIMVASTATIN 40 MG TABS 124247 SIMVASTATIN Inactive PROZAC 20 MG CAPS 1 q d PROZAC 20 MG CAPS 31 0385 FLUOXETINE HCL Inactive DYAZIDE 37.5-25 MG CAPS 1 qd DYAZIDE 37.5 -25 MG CAPS 025781 TRIAMTERENE-HCTZ Inactive INNOPRAN XL 120 MG [id number] Take one by mouth daily 2 INNOPRAN XL 120 MG CV11S-OPE PROPRANOLOL HCL SR BEADS Inactive PROMETHAZINE HCL 25 MG TABS 1 Q. 4 hr. PRN PROMETHAZINE HCL 25 MG TABS 029920 PROMETHAZINE HCL Inactive POTASSIUM CHLORIDE 20 MEQ PACK by mouth twice a day prn POTASSIUM CHLORIDE 20 MEQ PACK 217121 POTASSIUM CHLORIDE Inactive PHENADOZ 25 MG SUPP 1 every 4 hrs. PRN PHENADOZ 2 5 MG SUPP 796245 PROMETHAZINE HCL Inactive ZOFRAN 8 MG TABS 1 tab by mouth every 12 hours prn 201 05/16/09 ZOFRAN 8 MG TABS 348739 ONDANSETRON HCL Inactive OMEPRAZOLE 20 MG CPDR 1 tablet by mouth daily for GERD OMEPRAZOLE 20 MG CPDR 483930 OMEPRAZOLE Inactive CYCLOBENZAPRINE HCL 10 MG TABS 1 tablet by mouth three times daily as needed for headaches CYCLOBENZAPRINE HCL 10 MG TABS 493161 CYCLOBENZAPRINE HCL Inactive FLAGYL 500 MG TABS 1 pill by mouth three times daily, for diarrh ea FLAGYL 500 MG TABS 612580 METRONIDAZOLE Inactive BACTRIM DS 800-160 MG TABS [...] Range Description Chart Maintenance: labs added to [facility] - Chemistry magnesium, serum 2.0 mg/dL Chart Maintenance: Outside labs entered on [employer] - Chemistry sodium, serum 139 mmol/L potassium, serum 3.9 mmol/L blood glucose 85 mg/dL creatinine, serum 1.26 mg/dL aspartate aminotransferase (SGOT), serum 33 U/L alanine aminotransferase (SGPT), serum 44 U/L alkaline phosphatase, serum 127 U/L Chart Maintenance: Outside labs entered on [employer] - Hematology leukocyte count, blood 4.6 10*3/mm3 hemoglobin, blood 13.6 g/dL platelet count 162 10*3/mm3 Lab Report: Basic Metabolic Panel - Chem istry sodium, serum 136 mmol/L 054-551 8061/05/02 potassium, serum 4.1 mmol/L 3.5-5.2 chloride, serum 99 mmol/L 98-107 carbon dioxide, venous blood 30.7 mmol/L 21.0-32 .0 blood glucose 79 mg/dL 65-110 calcium, serum 8.7 mg/dL 8.5-10.1 urea nitrogen, blood 11 mg/dL 7-18 creatinine, serum 1.10 mg/dL 0.60-1.30 Lab Report: [facility] - Chemistry sodium, serum 141 mmol/L potassium, serum 4.2 mmol/L blood glucose 66 mg/dL creatinine, serum 1.16 mg/dL Lab Report: CBC W/ DIFF, [facility] - Chemistry sodium, serum 137 mmol/L potassium, serum 3.8 mmol/L blood glucose 79 mg/dL creatinine, serum 1.02 mg/dL magnesium, serum 1.2 mg/dL Lab Report: CBC W/ DIFF, [facility] - Hematology leukocyte [...] 11 .6-14.8 platelet count 133 10^3/MM^3 10*3/mm3 869-521 0404/01/17 leukocyte count, blood 3.1 10^3/MM^3 10*3/mm3 4.6-10.2 [...] Panel - Chemistry sodium, serum 140 mmol/L 658-330 8380/01/06 potassium, serum 3.4 mmol/L 3.5-5.2 chloride, serum [...] 0.40 mg/dL 0.00-1.00 sodium, serum 139 mmol/L 333-368 4169/01/21 potassium, serum 3.4 mmol/L 3.5-5.2 chloride, serum [...] 0.40 mg/dL 0.00-1.00 sodium, serum 138 mmol/L 683-728 9576/01/28 potassium, serum 3.2 mmol/L 3.5-5.2 chloride, serum [...] 0.40 mg/dL 0.00-1.00 sodium, serum 140 mmol/L 858-944 9457/02/04 potassium, serum 3.6 mmol/L 3.5-5.2 chloride, serum [...] 0.70 mg/dL 0.00-1.00 sodium, serum 136 mmol/L 227-810 8562/02/11 potassium, serum 3.1 mmol/L 3.5-5.2 chloride, serum [...] 0.50 mg/dL 0.00-1.00 sodium, serum 138 mmol/L 931-207 3042/08/14 potassium, serum 4.0 mmol/L 3.5-5.2 chloride, serum [...] 0.40 mg/dL 0.00-1.00 sodium, serum 136 mmol/L 752-752 7401/04/03 potassium, serum 3.7 mmol/L 3.5-5.2 chloride, serum [...] 0.40 mg/dL 0.00-1.00 sodium, serum 139 mmol/L 748-252 3663/02/18 potassium, serum 3.6 mmol/L 3.5-5.2 chloride, serum [...] 11 .6-14.8 platelet count 246 10^3/MM^3 10*3/mm3 641-177 5744/08/14 leukocyte count, blood 5.8 10^3/MM^3 10*3/mm3 4.6-10.2 [...] 11 .6-14.8 platelet count 193 10^3/MM^3 10*3/mm3 020-237 4353/02/18 leukocyte count, blood 4.0 10^3/MM^3 10*3/mm3 4.6-10.2 [...] 11 .6-14.8 platelet count 134 10^3/MM^3 10*3/mm3 297-519 1301/02/11 leukocyte count, blood 4.8 10^3/MM^3 10*3/mm3 4.6-10.2 [...] 11 .6-14.8 platelet count 102 10^3/MM^3 10*3/mm3 073-727 2152/02/04 leukocyte count, blood 3.6 10^3/MM^3 10*3/mm3 4.6-10.2 [...] 11 .6-14.8 platelet count 70 10^3/MM^3 10*3/mm3 003-371 0159/01/28 leukocyte count, blood 4.2 10^3/MM^3 10*3/mm3 4.6-10.2 [...] 11 .6-14.8 platelet count 73 10^3/MM^3 10*3/mm3 601-945 9329/01/06 leukocyte count, blood 7.6 10^3/MM^3 10*3/mm3 4.6-10.2 [...] 11 .6-14.8 platelet count 132 10^3/MM^3 10*3/mm3 847-348 5092/01/21 leukocyte count, blood 4.9 10^3/MM^3 10*3/mm3 4.6-10.2 [...] Diff/Morphology - Chemistry sodium, serum 141 mmol/L 761-633 5980/01/14 potassium, serum 3.9 mmol/L 3.5-5.2 chloride, serum [...] Panel - Chemistry cholesterol, serum 209 mg/dL 353-219 4531/09/11 triglyceride, serum, fasting 113 mg/dL 30-200 HDL [...] semiquantitative 7.0 5.0-8.5 Lab Report: VITAMIN D, 25-HYDROXY/16924, MAGNESIUM/622 - Chemistry vitamin D 25-hydroxy, serum 41 ng/mL 30-100 Encounters Code Encounter Date Provider Facility CPT-29552 Level 4 Est. Patient 19:08:42 [employer] Hope cohn MD PhD [facility] CPT-18656 Level 4 Est. Patient 20:04:51 CDT Hope cohn MD PhD [facility] CPT-78926 Level 3 New Patient 01:46:11 [employer] Hope landers MD PhD [facility] Procedures Code Procedure Name Date Entry Date Standard Desc ription CPT-J3420 Vitamin B12 1000mcg (Cyanocobalamin) 09:46:44 [facility] CPT-91862 Abx/Therapy Injection 09:46:44 [employer] CPT-J3420 Vitamin B12 1000mcg (Cyanocobalamin) 09:47:34 [facility] CPT-37772 Abx/Therapy Injection 09:47:34 [employer] CPT-J3420 Vitamin B12 1000mcg (Cyanocobalamin) 14:35:50 [employer] CPT-J3420 Vitamin B12 1000mcg (Cyanocobalamin) 09:25:05 [facility] CPT-03312 Abx/Therapy Injection 09:25:05 [employer] CPT-G0008 Administration of Influenza Virus Vaccine 13:36:47 CDT CPT-18434 Fluzone High-Dose Intramuscular Suspension 11/15 13:36:47 CDT CPT-J0897 Prolia 60 mg 08:50:41 CDT CPT-75585 Abx/Therapy Injection 08:50:41 CDT CPT-92554 Bone Density 12:06:12 CDT CPT-56798 Bone Density 08:54:40 CDT CPT-OV Office Visit 15:37:02 CDT CPT-08824 Postop F/U Visit 15:47:49 CDT CPT-05730 Postop F/U Visit 15:21:02 CDT CPT-[facility] Transitional Care Mgmt-High 07:52:27 CDT 20 20/06/01 CPT-52920 Venipuncture Draw Fee 13:51:18 CDT CPT-60346 Venipuncture Draw Fee 10:14:55 [employer] CPT-94135 Venipuncture Draw Fee 13:39:45 [employer] CPT-OV Office Visit 15:11:22 [employer] CPT-92551 Venipuncture Draw Fee 09:20:49 [employer] CPT-18405 Venipuncture Draw Fee 16:52:15 [employer] CPT-97724 Venipuncture Draw Fee 10:37:24 [employer] CPT-96181 Venipuncture Draw Fee 08:21:21 [employer] CPT-20106 Venipuncture Draw Fee 08:30:20 [employer] CPT-79922 Venipuncture Draw Fee 14:53:21 [employer] CPT-95704 Venipuncture Draw Fee 09:40:56 [employer] CPT-42234 Venipuncture Draw Fee 10:30:47 [employer] CPT-00294 Venipuncture Draw Fee 10:46:17 [employer] CPT-95056 Venipuncture Draw Fee 11:12:45 [employer] CPT-13981 Venipuncture Draw Fee 09:53:33 [employer] CPT-47840 Venipuncture Draw Fee 11:53:51 [employer] CPT-53348 Venipuncture Draw Fee 10:33:50 [employer] CPT-24840 Venipuncture Draw Fee 10:05:01 [employer] CPT-09942 Venipuncture Draw Fee 14:32:52 [employer] CPT-21108 Venipuncture Draw Fee 09:46:13 [employer] CPT-43728 Venipuncture Draw Fee 11:34:27 [employer] CPT-78370 Venipuncture Draw Fee 13:17:16 [employer] CPT-95488 Venipuncture Draw Fee 12:05:39 CDT CPT-83698 Venipuncture Draw Fee 12:49:12 CDT CPT-87717 Venipuncture Draw Fee 12:37:18 CDT CPT-50418 Venipuncture Draw Fee 10:57:11 CDT CPT-23853 Venipuncture Draw Fee 13:47:40 CDT CPT-49111 Venipuncture Draw Fee 10:02:17 CDT CPT-69791 TB Tubersol 17:32:32 CDT CPT-OV Office Visit 16:21:53 CDT CPT-OV Office Visit 15:49:22 CDT CPT-OV Office Visit 17:16:31 CDT CPT-OV Office Visit 10:43:31 CDT
--- OUTSIDE RECORDS SUMMARY | 2019-02-09 13:37 | XMS REPORT ---
Author Author [facility] YUDITH Rivera Organization [facility] Address [address] [id number] Phone [phone] Care Team Providers Care Parking Lot Spotter Name Role Phone OSITO TAVERAS MD PP [phone] Summary purpose TRANSITION OF CARE AUTO GENERATION Chief Complaint and Reason for Visit No authorized Reason for Visit (Admitting Diagnosis) is available for this visit . Problem list No authorized problems tracked for continuity of care are available for this vis it. Encounters No authorized problems tracked for encounter diagnoses are available for this vi sit. Medications Home Medications Medication Directions Started Status Source atenolol 50 mg tablet 0.5 tablet Oral Every Other Day Opposite day of Inderal Current triamterene 37.5 mg-hydrochlorothiazide 25 mg capsule 1 tablet Oral See Medication Notes twice a week, aletrnating with the inderal Current Inderal 60 mg tablet 1 tablet Oral See Medication Notes Opposite day of Atenolol Current Aspirin Child 81 mg chewable tablet 1 tablet Oral 1 Daily Current Excedrin Extra Strength 250 mg-250 mg-65 mg tablet 2 tablet Oral As Needed Current ferrous sulfate 325 mg (65 mg iron) tablet,delayed rel ease 1 tablet oral 1 Daily Current Patient recall Mag-Oxide 400 mg tablet 1 tablet oral 3 Times Daily pt reports she thinks it might be a 500mg tablet Current Patient recall ascorbic acid 500 mg tablet 1 tablet oral 2 Times Daily Current Rx Discharge Report Vitamin D3 5,000 unit tablet 1 tablet oral 2 Times Daily Current Patient recall multivitamin tablet 1 tablet oral 1 Daily Current Patient recall Allergies, adverse reactions, alerts Allergen Category Ingredient Status Reaction Severity Onset No Known Drug Allergies No known drug allergies No Known Drug Al lergies Confirmed or Verified plastic tape Miscellaneous Allergy plastic tape Confirmed or Verified Immunizations No immunizations recorded for this patient visit Relevant diagnostic tests and/or laboratory data RESULTS Chemistry 39-30-412444:15:00 Result Normal Range Units Magnesium 2.0 1.7-2.8 mg/dl :15:00 Result Normal Range Units Magnesium 2.2 1.7-2.8 mg/dl :10:00 Result Normal Range Units Magnesium 1.9 1.7-2.8 mg/dl :22:00 Result Normal Range Units Magnesium 1.7 1.7-2.8 mg/dl :24:00 Result Normal Range Units Magnesium 2.0 1.7-2.8 mg/dl :20:00 Result Normal Range Units Magnesium 1.8 1.7-2.8 mg/dl :18:00 Result Normal Range Units Magnesium L 1.6 1.7-2.8 mg/dl History of procedures No procedures recorded for this patient visit. Functional status Functional Status Finding Observation Time Hearing Prob Loc none 24-87-392852:26 Vision Problems no 73-07-160302:26 Ambulation Asst Dev none 77-92-153183:26 Range of Motion full 79-42-343165:28 Muscle Strength RUE 5 ROM full resist 08-05-152821:28 Muscle Strength RLE 5 ROM full resist 91-94-632606:28 Muscle Strength LUE 5 ROM full resist 04-99-191442:28 Muscle Strength LLE 5 ROM full resist 28-05-027290:28 Transfers independent 57-21-085602:28 Ambulation up ad timothy 13-83-602432:28 Balance steady 23-35-787654:28 Bathing Assistance none 94-21-490506:26 Eating Assistance none 22-79-508121:26 Dressing Assistance none 09-17-080093:26 Toileting Assistance none 56-89-353549:26 Transfer Assistance none 48-68-083739:26 Decline Slf Care/Mob no 26-07-212788:26 Phys Cond Stable yes 69-54-387202:26 Cognitive Status Finding Observation Time Oriented To Date 5 Yes 75-71-045447:[address] 5 Yes 28-91-624892:26 Name 3 Objects 3 Yes 12-33-762736:26 Name Object in Rm 2 Yes 31-01-732146:26 Recall 3 Objects 3 Yes 25-54-015972:26 Repeats a Phrase 1 Yes 49-91-465322:26 Follows Verbal Direc 3 Yes :26 Follows Written Dire 1 Yes :26 Write a Sentance 1 Yes : Draw an Object 1 Yes : Mini Mental Total 25 points :26 Less than 20 Phys not applicable :26 Vital signs Type Value Date Respiration Rate 16breaths per minute : 10 Pulse 70beats per minute :10 Oxygen Saturation 98% :10 BP Systolic 117mmHg :10 BP Diastolic 45mmHg :10 Temperature 97.3F :10 Height 63inches :51 Weight 115LB :51 Social history Type Value Smoking Status NEVER SMOKER Treatment Plan No treatment plan text is available for this visit. Hospital discharge instructions Valuables no
--- OUTSIDE RECORDS SUMMARY | 2019-02-09 13:37 | XMS REPORT | Clinical Summary ---
Author Author Renaldo, Florecita Munoz Organization [facility] Address Unknown Phone Unavailable Allergies, Adverse [...] by mouth twice daily, for UTI SULFAMETHOXAZOLE-TRIMETHOPRIM [id number] Active Hope obando MD PhD Active PROLIA 60 MG/ML SOLN 1 shot every 6 months for osteoprosis DENOSUMAB 35937037755 Active Hope Benavidez MD PhD Active CALCIUM + D + K 750-500-40 MG-UNT-MCG TABS 1 tab by mouth tw ice daily CALCIUM-VITAMIN D-VITAMIN K 73045293286 Active Hope landers MD PhD Active DAILY VALUE MULTIVITAMIN TABS 1 tab by mouth twice daily MULTIPLE VITAMIN 64613223330 Active Hope Benavidez MD PhD Active FISH OIL 306 MG CAPS 1 tab by mouth three times daily OMEGA-3 FATTY ACIDS 27322117527 Active Hope Benavidez MD PhD Active LUTEIN 10 MG TABS 1 tab daily LUTEIN 68039054265 Act cash Hope Benavidez MD PhD Active FLORANEX PACK 1 pack three times daily, for bowel health LACTOBACILLUS 40337444544 Active Hope Benavidez MD PhD Active LOMOTIL 2.5-0.025 MG TABS 1 tab by mouth prn DIPHENOXYLATE-ATROPINE 55068242202 Active Hope Benavidez MD PhD Active TRIAMTERENE-HCTZ 37.5-25 MG TABS 1 tab by mouth daily TRIAMTERENE-HCTZ 94647543747 Active Hope Benavidez MD PhD Acti ve IRON 325 (65 FE) MG TABS 1 tab daily FERROUS SULF ATE 61057889862 Active Hope Benavidez MD PhD Active MAGNESIUM GLUCONATE 250 MG TABS 1 tab tid MAGN ESIUM GLUCONATE 90403590764 Active Adam Yates MD Active ATENOLOL 50 MG TABS 1/2 tab q other day -w-f ATE NOLOL 81558798143 Active Adam Yates MD Active PROPRANOLOL HCL 80 MG TABS 1 tab tue. and thur. PROPRANOLOL HCL 39453613196 Active Adam Yates MD Active CYCLOBENZAPRINE HCL 10 MG TABS 1 tablet by mouth three times daily as needed for headaches CYCLOBENZAPRINE HCL 88568331463 No Longe r Active Adam Yates MD Active OMEPRAZOLE 20 MG CPDR 1 tablet by mouth daily for GERD OMEPRAZOLE 75655944744 No Longer Active Adam Yates MD A ctive ZOFRAN 8 MG TABS 1 tab by mouth every 12 hours prn 201 05/16/09 ONDANSETRON HCL 35014968196 No Longer Active Adam Yates MD Active PHENADOZ 25 MG SUPP 1 every 4 hrs. PRN PROMETHA ZINE HCL 37470998524 No Longer Active Adam Yates MD Active POTASSIUM CHLORIDE 20 MEQ PACK by mouth twice a day prn POTASSIUM CHLORIDE 74343431644 No Longer Active Adam Yates MD Active PROMETHAZINE HCL 25 MG TABS 1 Q. 4 hr. PRN PROM ETHAZINE HCL 06648079534 No Longer Active Adam Yates MD Active INNOPRAN XL 120 MG [id number] Take one by mouth daily 2 PROPRANOLOL HCL SR BEADS 92277731947 No Longer Active Adam Yates MD A ctive FLAGYL 500 MG TABS 1 pill by mouth three times daily, for diarrh ea METRONIDAZOLE 60912573252 No Longer Active Hope Benavidez MD PhD Active DYAZIDE 37.5-25 MG CAPS 1 qd TRIAMTERENE-HC TZ 33152779031 No Longer Active Hope Benavidez MD PhD Active PROZAC 20 MG CAPS 1 q d FLUOXETINE HCL 23974 970048 No Longer Active Hope Benavidez MD PhD Active SIMVASTATIN 40 MG TABS 1 qd SIMVASTATIN 004 20728948 No Longer Active Adam Yates MD Active MELOXICAM 15 MG TABS 1 qd MELOXICAM 9077765 9240 No Longer Active Adam Yates MD Active IMODIUM A-D 2 MG TABS 2 onset at diarrhea and prn. LOPERAMIDE HCL 20625112567 Active Hope Benavidez MD PhD Active EXCEDRIN EXTRA STRENGTH 250-250-65 MG TABS 1-2 q6h PRN headache 201 04/16/21 [id number] 34497255421 Active Hope Benavidez MD PhD Active FLAGYL 500 MG TABS 1 qid METRONIDAZOLE 32482 237215 No Longer Active Adam Yates MD Active LEVAQUIN 750 MG TABS 1 qd LEVOFLOXACIN 5486 3493816 No Longer Active Adam Yates MD Active ADULT ASPIRIN LOW STRENGTH 81 MG TBDP 1 qd A SPIRIN 30836596185 Active Hope Benavidez MD PhD Active LEVAQUIN 750 MG TABS 1 qd LEVAQUIN 750 MG T ABS 891007 LEVOFLOXACIN Inactive FLAGYL 500 MG TABS 1 qid FLAGYL 500 MG TABS 923216 METRONIDAZOLE Inactive MELOXICAM 15 MG TABS 1 qd MELOXICAM 15 MG T ABS 251367 MELOXICAM Inactive SIMVASTATIN 40 MG TABS 1 qd SIMVASTATIN 40 MG TABS 556713 SIMVASTATIN Inactive PROZAC 20 MG CAPS 1 q d PROZAC 20 MG CAPS 31 0385 FLUOXETINE HCL Inactive DYAZIDE 37.5-25 MG CAPS 1 qd DYAZIDE 37.5 -25 MG CAPS 281088 TRIAMTERENE-HCTZ Inactive INNOPRAN XL 120 MG [id number] Take one by mouth daily 2 INNOPRAN XL 120 MG [id number] PROPRANOLOL HCL SR BEADS Inactive PROMETHAZINE HCL 25 MG TABS 1 Q. 4 hr. PRN PROMETHAZINE HCL 25 MG TABS 068246 PROMETHAZINE HCL Inactive POTASSIUM CHLORIDE 20 MEQ PACK by mouth twice a day prn POTASSIUM CHLORIDE 20 MEQ PACK 369298 POTASSIUM CHLORIDE Inactive PHENADOZ 25 MG SUPP 1 every 4 hrs. PRN PHENADOZ 2 5 MG SUPP 925272 PROMETHAZINE HCL Inactive ZOFRAN 8 MG TABS 1 tab by mouth every 12 hours prn 201 05/16/09 ZOFRAN 8 MG TABS 049078 ONDANSETRON HCL Inactive OMEPRAZOLE 20 MG CPDR 1 tablet by mouth daily for GERD OMEPRAZOLE 20 MG CPDR 019452 OMEPRAZOLE Inactive CYCLOBENZAPRINE HCL 10 MG TABS 1 tablet by mouth three times daily as needed for headaches CYCLOBENZAPRINE HCL 10 MG TABS 839741 CYCLOBENZAPRINE HCL Inactive FLAGYL 500 MG TABS 1 pill by mouth three times daily, for diarrh ea FLAGYL 500 MG TABS 525578 METRONIDAZOLE Inactive Advance Directives Directive Description Start [...] Range Description Chart Maintenance: labs added to [facility] - Chemistry magnesium, serum 2.0 mg/dL Chart Maintenance: Outside labs entered on [employer] - Chemistry sodium, serum 139 mmol/L potassium, serum 3.9 mmol/L blood glucose 85 mg/dL creatinine, serum 1.26 mg/dL aspartate aminotransferase (SGOT), serum 33 U/L alanine aminotransferase (SGPT), serum 44 U/L alkaline phosphatase, serum 127 U/L Chart Maintenance: Outside labs entered on [employer] - Hematology leukocyte count, blood 4.6 10*3/mm3 hemoglobin, blood 13.6 g/dL platelet count 162 10*3/mm3 Lab Report: Basic Metabolic Panel - Chem istry sodium, serum 136 mmol/L 953-387 5278/05/02 potassium, serum 4.1 mmol/L 3.5-5.2 chloride, serum [...] 11 .6-14.8 platelet count 102 10^3/MM^3 10*3/mm3 611-192 8016/01/08 leukocyte count, blood 9.0 10^3/MM^3 10*3/mm3 4.6-10.2 [...] 11 .6-14.8 platelet count 133 10^3/MM^3 10*3/mm3 985-632 2297/01/17 leukocyte count, blood 3.1 10^3/MM^3 10*3/mm3 4.6-10.2 [...] Panel - Chemistry sodium, serum 139 mmol/L 023-164 5030/01/21 potassium, serum 3.4 mmol/L 3.5-5.2 chloride, serum [...] 0.40 mg/dL 0.00-1.00 sodium, serum 138 mmol/L 633-780 0011/01/28 potassium, serum 3.2 mmol/L 3.5-5.2 chloride, serum [...] 0.40 mg/dL 0.00-1.00 sodium, serum 140 mmol/L 256-111 5381/02/04 potassium, serum 3.6 mmol/L 3.5-5.2 chloride, serum [...] 0.70 mg/dL 0.00-1.00 sodium, serum 136 mmol/L 151-440 1482/02/11 potassium, serum 3.1 mmol/L 3.5-5.2 chloride, serum [...] 0.50 mg/dL 0.00-1.00 sodium, serum 139 mmol/L 437-510 6492/02/18 potassium, serum 3.6 mmol/L 3.5-5.2 chloride, serum [...] 0.50 mg/dL 0.00-1.00 sodium, serum 139 mmol/L 594-187 4169/12/03 potassium, serum 3.7 mmol/L 3.5-5.2 chloride, serum [...] 0.40 mg/dL 0.00-1.00 sodium, serum 142 mmol/L 372-442 8380/01/03 potassium, serum 3.4 mmol/L 3.5-5.2 chloride, serum [...] 0.50 mg/dL 0.00-1.00 sodium, serum 138 mmol/L 624-578 8385/08/14 potassium, serum 4.0 mmol/L 3.5-5.2 chloride, serum [...] 0.40 mg/dL 0.00-1.00 sodium, serum 140 mmol/L 711-021 9094/01/06 potassium, serum 3.4 mmol/L 3.5-5.2 chloride, serum 101 mmol/L 98-107 carbon dioxide, venous blood 30.4 mmol/L 21.0-32 .0 blood glucose 112 mg/dL 65-110 urea nitrogen, blood 21 mg/dL - creatinine, serum 1.40 mg/dL 0.60-1.30 alanine aminotransferase (SGPT), serum 16 U/L aspartate aminotransferase (SGOT), serum 24 U/L 15-37 alkaline phosphatase, serum 147 U/L 50-136 calcium, serum 8.7 mg/dL 8.5-10.1 bilirubin, serum, total 0.40 mg/dL 0.00-1.00 sodium, serum 136 mmol/L 070-611 2421/04/03 potassium, serum 3.7 mmol/L 3.5-5.2 chloride, serum [...] 11 .6-14.8 platelet count 193 10^3/MM^3 10*3/mm3 109-554 3717/01/06 leukocyte count, blood 7.6 10^3/MM^3 10*3/mm3 4.6-10.2 [...] 11 .6-14.8 platelet count 132 10^3/MM^3 10*3/mm3 341-552 5443/01/03 leukocyte count, blood 8.1 10^3/MM^3 10*3/mm3 4.6-10.2 [...] 11 .6-14.8 platelet count 96 10^3/MM^3 10*3/mm3 910-975 9378/12/03 leukocyte count, blood 8.2 10^3/MM^3 10*3/mm3 4.6-10.2 [...] 11 .6-14.8 platelet count 98 10^3/MM^3 10*3/mm3 176-949 0156/04/03 leukocyte count, blood 5.6 10^3/MM^3 10*3/mm3 4.6-10.2 [...] 11 .6-14.8 platelet count 246 10^3/MM^3 10*3/mm3 252-089 3212/02/18 leukocyte count, blood 4.0 10^3/MM^3 10*3/mm3 4.6-10.2 [...] 11 .6-14.8 platelet count 134 10^3/MM^3 10*3/mm3 373-668 1351/02/11 leukocyte count, blood 4.8 10^3/MM^3 10*3/mm3 4.6-10.2 [...] 11 .6-14.8 platelet count 102 10^3/MM^3 10*3/mm3 256-423 5850/02/04 leukocyte count, blood 3.6 10^3/MM^3 10*3/mm3 4.6-10.2 [...] 11 .6-14.8 platelet count 70 10^3/MM^3 10*3/mm3 493-022 8387/01/28 leukocyte count, blood 4.2 10^3/MM^3 10*3/mm3 4.6-10.2 [...] 11 .6-14.8 platelet count 73 10^3/MM^3 10*3/mm3 357-750 6434/01/21 leukocyte count, blood 4.9 10^3/MM^3 10*3/mm3 4.6-10.2 [...] Diff/Morphology - Chemistry sodium, serum 141 mmol/L 870-323 3972/01/14 potassium, serum 3.9 mmol/L 3.5-5.2 chloride, serum [...] 0.50 mg/dL 0.00-1.00 sodium, serum 141 mmol/L 323-720 4946/11/25 potassium, serum 3.9 mmol/L 3.5-5.2 chloride, serum [...] 0.50 mg/dL 0.00-1.00 sodium, serum 140 mmol/L 686-495 6493/12/17 potassium, serum 3.3 mmol/L 3.5-5.2 chloride, serum [...] 0.40 mg/dL 0.00-1.00 sodium, serum 138 mmol/L 499-275 8755/12/24 potassium, serum 3.7 mmol/L 3.5-5.2 chloride, serum [...] 11 .6-14.8 platelet count 75 10^3/MM^3 10*3/mm3 335-326 9828/12/24 leukocyte count, blood 14.0 10^3/MM^3 10*3/mm3 4.6-10.2 [...] 11 .6-14.8 platelet count 66 10^3/MM^3 10*3/mm3 346-253 8982/11/25 leukocyte count, blood 21.1 10^3/MM^3 10*3/mm3 4.6-10.2 [...] 11 .6-14.8 platelet count 46 10^3/MM^3 10*3/mm3 135-567 5394/01/14 leukocyte count, blood 6.2 10^3/MM^3 10*3/mm3 4.6-10.2 [...] - Chem istry sodium, serum 142 mmol/L 476-702 0907/12/10 potassium, serum 3.9 mmol/L 3.5-5.2 chloride, serum [...] Diff/Morphology - Chemistry sodium, serum 142 mmol/L 416-688 2415/12/31 potassium, serum 3.6 mmol/L 3.5-5.2 chloride, [...] Panel - Chemistry cholesterol, serum 209 mg/dL 242-179 4119/09/11 triglyceride, serum, fasting 113 mg/dL 30-200 HDL [...] 5.0-8.5 Encounters Code Encounter Date Provider Facility [id number] Level 4 Est. Patient 20:04:51 CDT Hope cohn MD PhD [facility] CPT-03202 Level 3 New Patient 01:46:11 RESEARCHER Hope landers MD PhD [facility] Procedures Code Procedure Name Date Entry Date Standard Desc ription CPT-G0008 Administration of Influenza Virus Vaccine 13:36:47 CDT CPT-31854 Fluzone High-Dose Intramuscular Suspension 11/15 13:36:47 CDT CPT-J0897 Prolia 60 mg 08:50:41 CDT CPT-65813 Abx/Therapy Injection 08:50:41 CDT CPT-03286 Bone Density 12:06:12 CDT CPT-37243 Bone Density 08:54:40 CDT CPT-OV Office Visit 15:37:02 CDT CPT-38813 Postop F/U Visit 15:47:49 CDT CPT-58729 Postop F/U Visit 15:21:02 CDT CPT-TCM Transitional Care Mgmt-High 07:52:27 CDT 20 20/06/01 CPT-99767 Venipuncture Draw Fee 13:51:18 CDT CPT-69328 Venipuncture Draw Fee 10:14:55 RESEARCHER CPT-37093 Venipuncture Draw Fee 13:39:45 RESEARCHER CPT-OV Office Visit 15:11:22 RESEARCHER CPT-19149 Venipuncture Draw Fee 09:20:49 RESEARCHER CPT-49622 Venipuncture Draw Fee 16:52:15 RESEARCHER CPT-43107 Venipuncture Draw Fee 10:37:24 RESEARCHER CPT-01371 Venipuncture Draw Fee 08:21:21 RESEARCHER CPT-59357 Venipuncture Draw Fee 08:30:20 RESEARCHER CPT-39684 Venipuncture Draw Fee 14:53:21 RESEARCHER CPT-95723 Venipuncture Draw Fee 09:40:56 RESEARCHER CPT-30164 Venipuncture Draw Fee 10:30:47 RESEARCHER CPT-68389 Venipuncture Draw Fee 10:46:17 RESEARCHER CPT-99170 Venipuncture Draw Fee 11:12:45 RESEARCHER CPT-92247 Venipuncture Draw Fee 09:53:33 RESEARCHER CPT-20991 Venipuncture Draw Fee 11:53:51 RESEARCHER CPT-04247 Venipuncture Draw Fee 10:33:50 RESEARCHER CPT-30179 Venipuncture Draw Fee 10:05:01 RESEARCHER CPT-33412 Venipuncture Draw Fee 14:32:52 RESEARCHER CPT-68364 Venipuncture Draw Fee 09:46:13 RESEARCHER CPT-70572 Venipuncture Draw Fee 11:34:27 RESEARCHER CPT-79628 Venipuncture Draw Fee 13:17:16 RESEARCHER CPT-40797 Venipuncture Draw Fee 12:05:39 CDT CPT-90908 Venipuncture Draw Fee 12:49:12 CDT CPT-84365 Venipuncture Draw Fee 12:37:18 CDT CPT-76959 Venipuncture Draw Fee 10:57:11 CDT CPT-30858 Venipuncture Draw Fee 13:47:40 CDT CPT-88819 Venipuncture Draw Fee 10:02:17 CDT CPT-18932 TB Tubersol 17:32:32 CDT CPT-OV Office Visit 16:21:53 CDT CPT-OV Office Visit 15:49:22 CDT CPT-OV Office Visit 17:16:31 CDT CPT-OV Office Visit 10:43:31 CDT
--- OUTSIDE RECORDS SUMMARY | 2019-02-09 13:38 | XMS REPORT | Clinical Summary ---
[...] (age-related) (natural) V49.8 1 Active Citlaly Roland [facility] Asymptomatic postmenopausal status (age- related) (natural) Diarrhea 787.91 Active Hope Benavidez MD PhD Diarrhea Osteoporosis 733.00 Active Hope Benavidez MD PhD Osteoporosis, unspecified ABDOMINAL PAIN, RIGHT LOWER QUADRANT ICD-789.03 Inactive Kina Joshua APRN ADENOCARCINOMA, COLON, CECUM ICD-153.4 Dick Yates MD ABDOMINAL PAIN, GENERALIZED ICD-789.07 Inactive Hope Benavidez MD PhD FEVER UNSPECIFIED ICD-780.60 Inactive Hope cohn MD PhD UNSPECIFIED VENOUS INSUFFICIENCY ICD-459.81 [place] ct[facility] Adam Yates MD ADENOCARCINOMA, ASCENDING COLON [...] shot every 6 months for osteoprosis DENOSUMAB 07984603927 Active Hope Benavidez MD PhD Active CALCIUM + D + K 750-500-40 MG-UNT-MCG TABS 1 tab by mouth tw ice daily CALCIUM-VITAMIN D-VITAMIN K 19955640798 Active Hope landers MD PhD Active DAILY VALUE MULTIVITAMIN TABS 1 tab by mouth twice daily MULTIPLE VITAMIN 27484064369 Active Hope Benavidez MD PhD Active FISH OIL 306 MG CAPS 1 tab by mouth three times daily OMEGA-3 FATTY ACIDS 14203098356 Active Hope Benavidez MD PhD Active LUTEIN 10 MG TABS 1 tab daily LUTEIN 13566797664 Act cash Hope Benavidez MD PhD Active FLORANEX PACK 1 pack three times daily, for bowel health LACTOBACILLUS 45739816942 Active Hope Benavidez MD PhD Active LOMOTIL 2.5-0.025 MG TABS 1 tab by mouth prn DIPHENOXYLATE-ATROPINE 41606005680 Active Hope Benavidez MD PhD Active TRIAMTERENE-HCTZ 37.5-25 MG TABS 1 tab by mouth daily TRIAMTERENE-HCTZ 31845461744 Active Hope Benavidez MD PhD Acti ve IRON 325 (65 FE) MG TABS 1 tab daily FERROUS SULF ATE 78136638734 Active Hope Benavidez MD PhD Active MAGNESIUM GLUCONATE 250 MG TABS 1 tab tid MAGN ESIUM GLUCONATE 30807891700 Active Adam aYtes MD Active ATENOLOL 50 MG TABS 1/2 tab q other day m-w-f ATE NOLOL 30040675939 Active Adam Yates MD Active PROPRANOLOL HCL 80 MG TABS 1 tab tue. and thur. PROPRANOLOL HCL 02589785181 Active Adam Yates MD Active CYCLOBENZAPRINE HCL 10 MG TABS 1 tablet by mouth three times daily as needed for headaches CYCLOBENZAPRINE HCL 74950548424 No Longe r Active Adam Yates MD Active OMEPRAZOLE 20 MG CPDR 1 tablet by mouth daily for GERD OMEPRAZOLE 24123091570 No Longer Active Adam Yates MD A ctive ZOFRAN 8 MG TABS 1 tab by mouth every 12 hours prn 201 05/16/09 ONDANSETRON HCL 35224636904 No Longer Active Adam Yates MD Active PHENADOZ 25 MG SUPP 1 every 4 hrs. PRN PROMETHA ZINE HCL 81812178927 No Longer Active Adam Yates MD Active POTASSIUM CHLORIDE 20 MEQ PACK by mouth twice a day prn POTASSIUM CHLORIDE 35350564651 No Longer Active Adam Yates MD Active PROMETHAZINE HCL 25 MG TABS 1 Q. 4 hr. PRN PROM ETHAZINE HCL 51173699603 No Longer Active Adam Yates MD Active INNOPRAN XL 120 MG [id number]-XMS Take one by mouth daily 2 PROPRANOLOL HCL SR BEADS 97495934807 No Longer Active Adam Yates MD A ctive FLAGYL 500 MG TABS 1 pill by mouth three times daily, for diarrh ea METRONIDAZOLE 23796211246 No Longer Active Hope Benavidez MD PhD Active DYAZIDE 37.5-25 MG CAPS 1 qd TRIAMTERENE-HC TZ 91231067659 No Longer Active Hope Benavidez MD PhD Active PROZAC 20 MG CAPS 1 q d FLUOXETINE HCL 69844 590916 No Longer Active Hoep Benavidez MD PhD Active SIMVASTATIN 40 MG TABS 1 qd SIMVASTATIN 004 87155231 No Longer Active Adam Yates MD Active MELOXICAM 15 MG TABS 1 qd MELOXICAM 1728259 0577 No Longer Active Adam Yates MD Active IMODIUM A-D 2 MG TABS 2 onset at diarrhea and prn. LOPERAMIDE HCL 88645999200 Active Hope Benavidez MD PhD Active EXCEDRIN EXTRA STRENGTH 250-250-65 MG TABS 1-2 q6h PRN headache 201 04/16/21 [id number] 36723204542 Active Hope Benavidez MD PhD Active FLAGYL 500 MG TABS 1 qid METRONIDAZOLE 13416 906955 No Longer Active Adam Yates MD Active LEVAQUIN 750 MG TABS 1 qd LEVOFLOXACIN 5486 6272372 No Longer Active Adam Yates MD Active ADULT ASPIRIN LOW STRENGTH 81 MG TBDP 1 qd A SPIRIN 84107146420 Active Hope Benavidez MD PhD Active LEVAQUIN 750 MG TABS 1 qd LEVAQUIN 750 MG T ABS 133283 LEVOFLOXACIN Inactive FLAGYL 500 MG TABS 1 qid FLAGYL 500 MG TABS 384596 METRONIDAZOLE Inactive MELOXICAM 15 MG TABS 1 qd MELOXICAM 15 MG T ABS 541078 MELOXICAM Inactive SIMVASTATIN 40 MG TABS 1 qd SIMVASTATIN 40 MG TABS 233061 SIMVASTATIN Inactive PROZAC 20 MG CAPS 1 q d PROZAC 20 MG CAPS 31 0385 FLUOXETINE HCL Inactive DYAZIDE 37.5-25 MG CAPS 1 qd DYAZIDE 37.5 -25 MG CAPS 673295 TRIAMTERENE-HCTZ Inactive INNOPRAN XL 120 MG [id number] Take one by mouth daily 2 INNOPRAN XL 120 MG [id number] PROPRANOLOL HCL SR BEADS Inactive PROMETHAZINE HCL 25 MG TABS 1 Q. 4 hr. PRN PROMETHAZINE HCL 25 MG TABS 563768 PROMETHAZINE HCL Inactive POTASSIUM CHLORIDE 20 MEQ PACK by mouth twice a day prn POTASSIUM CHLORIDE 20 MEQ PACK 123075 POTASSIUM CHLORIDE Inactive PHENADOZ 25 MG SUPP 1 every 4 hrs. PRN PHENADOZ 2 5 MG SUPP 892504 PROMETHAZINE HCL Inactive ZOFRAN 8 MG TABS 1 tab by mouth every 12 hours prn 201 05/16/09 ZOFRAN 8 MG TABS 298143 ONDANSETRON HCL Inactive OMEPRAZOLE 20 MG CPDR 1 tablet by mouth daily for GERD OMEPRAZOLE 20 MG CPDR 965514 OMEPRAZOLE Inactive CYCLOBENZAPRINE HCL 10 MG TABS 1 tablet by mouth three times daily as needed for headaches CYCLOBENZAPRINE HCL 10 MG TABS 300020 CYCLOBENZAPRINE HCL Inactive FLAGYL 500 MG TABS 1 pill by mouth three times daily, for diarrh ea FLAGYL 500 MG TABS 457352 METRONIDAZOLE Inactive Advance Directives Directive Description Start [...] - Chem istry sodium, serum 137 mmol/L 386-672 1224/11/01 potassium, serum 3.7 mmol/L 3.5-5.2 chloride, serum 100 mmol/L 98-107 carbon dioxide, venous blood 31.8 mmol/L 21.0-32 .0 blood glucose 98 mg/dL 65-110 calcium, serum 8.6 mg/dL 8.5-10.1 urea nitrogen, blood 23 mg/dL 7-18 creatinine, serum 1.50 mg/dL 0.60-1.30 sodium, serum 136 mmol/L 446-036 2876/05/02 potassium, serum 4.1 mmol/L 3.5-5.2 chloride, serum [...] 11 .6-14.8 platelet count 22 10^3/MM^3 10*3/mm3 821-116 5678/11/19 leukocyte count, blood 10.4 10^3/MM^3 10*3/mm3 [...] Verified By Repeat Analysis 10^3/mm ^3 10*3/mm3 446-346 7496/12/10 leukocyte count, blood 7.8 10^3/MM^3 10*3/mm3 4.6-10.2 [...] 11 .6-14.8 platelet count 102 10^3/MM^3 10*3/mm3 247-323 0199/01/08 leukocyte count, blood 9.0 10^3/MM^3 10*3/mm3 4.6-10.2 [...] Panel - Chemistry sodium, serum 140 mmol/L 078-322 2599/01/06 potassium, serum 3.4 mmol/L 3.5-5.2 chloride, serum [...] 0.40 mg/dL 0.00-1.00 sodium, serum 142 mmol/L 453-233 3487/01/03 potassium, serum 3.4 mmol/L 3.5-5.2 chloride, serum [...] 0.50 mg/dL 0.00-1.00 sodium, serum 139 mmol/L 063-905 5551/12/03 potassium, serum 3.7 mmol/L 3.5-5.2 chloride, serum [...] 0.40 mg/dL 0.00-1.00 sodium, serum 139 mmol/L 625-071 5979/10/17 potassium, serum 3.1 mmol/L 3.5-5.2 chloride, serum [...] 0.30 mg/dL 0.00-1.00 sodium, serum 139 mmol/L 800-797 5857/01/21 potassium, serum 3.4 mmol/L 3.5-5.2 chloride, serum [...] 0.40 mg/dL 0.00-1.00 sodium, serum 138 mmol/L 680-026 8059/01/28 potassium, serum 3.2 mmol/L 3.5-5.2 chloride, serum [...] 0.40 mg/dL 0.00-1.00 sodium, serum 136 mmol/L 131-306 7560/04/03 potassium, serum 3.7 mmol/L 3.5-5.2 chloride, serum [...] 0.40 mg/dL 0.00-1.00 sodium, serum 139 mmol/L 095-660 9349/02/18 potassium, serum 3.6 mmol/L 3.5-5.2 chloride, serum [...] 0.50 mg/dL 0.00-1.00 sodium, serum 140 mmol/L 241-578 6554/02/04 potassium, serum 3.6 mmol/L 3.5-5.2 chloride, serum [...] 0.70 mg/dL 0.00-1.00 sodium, serum 136 mmol/L 072-209 5799/02/11 potassium, serum 3.1 mmol/L 3.5-5.2 chloride, serum [...] 0.50 mg/dL 0.00-1.00 sodium, serum 138 mmol/L 531-692 4385/08/14 potassium, serum 4.0 mmol/L 3.5-5.2 chloride, serum [...] 11 .6-14.8 platelet count 193 10^3/MM^3 10*3/mm3 132-861 9681/02/18 leukocyte count, blood 4.0 10^3/MM^3 10*3/mm3 4.6-10.2 [...] 11 .6-14.8 platelet count 134 10^3/MM^3 10*3/mm3 587-935 4849/02/11 leukocyte count, blood 4.8 10^3/MM^3 10*3/mm3 4.6-10.2 [...] 11 .6-14.8 platelet count 102 10^3/MM^3 10*3/mm3 381-876 5122/04/03 leukocyte count, blood 5.6 10^3/MM^3 10*3/mm3 4.6-10.2 [...] 11 .6-14.8 platelet count 246 10^3/MM^3 10*3/mm3 548-467 0251/02/04 leukocyte count, blood 3.6 10^3/MM^3 10*3/mm3 4.6-10.2 [...] 11 .6-14.8 platelet count 70 10^3/MM^3 10*3/mm3 837-436 6701/01/28 leukocyte count, blood 4.2 10^3/MM^3 10*3/mm3 4.6-10.2 [...] 11 .6-14.8 platelet count 73 10^3/MM^3 10*3/mm3 816-099 2657/01/21 leukocyte count, blood 4.9 10^3/MM^3 10*3/mm3 4.6-10.2 [...] .6-14.8 platelet count 38 recounted 10^3/mm^3 10*3/mm3 160-097 9556/10/17 leukocyte count, blood 12.0 10^3/MM^3 10*3/mm3 4.6-10.2 [...] 11 .6-14.8 platelet count 232 10^3/MM^3 10*3/mm3 202-158 2833/12/03 leukocyte count, blood 8.2 10^3/MM^3 10*3/mm3 4.6-10.2 [...] 11 .6-14.8 platelet count 98 10^3/MM^3 10*3/mm3 144-429 7071/01/06 leukocyte count, blood 7.6 10^3/MM^3 10*3/mm3 4.6-10.2 [...] 11 .6-14.8 platelet count 132 10^3/MM^3 10*3/mm3 947-364 1043/01/03 leukocyte count, blood 8.1 10^3/MM^3 10*3/mm3 4.6-10.2 [...] Diff/Morphology - Chemistry sodium, serum 140 mmol/L 709-601 6338/12/17 potassium, serum 3.3 mmol/L 3.5-5.2 chloride, serum [...] 0.40 mg/dL 0.00-1.00 sodium, serum 138 mmol/L 783-891 5623/12/24 potassium, serum 3.7 mmol/L 3.5-5.2 chloride, serum [...] 0.50 mg/dL 0.00-1.00 sodium, serum 141 mmol/L 389-777 6311/11/25 potassium, serum 3.9 mmol/L 3.5-5.2 chloride, serum [...] 0.50 mg/dL 0.00-1.00 sodium, serum 137 mmol/L 391-485 0064/11/12 potassium, serum 3.2 mmol/L 3.5-5.2 chloride, serum [...] 0.40 mg/dL 0.00-1.00 sodium, serum 138 mmol/L 397-994 9512/11/05 potassium, serum 3.9 mmol/L 3.5-5.2 chloride, serum [...] 0.40 mg/dL 0.00-1.00 sodium, serum 135 mmol/L 919-767 2108/10/22 potassium, serum 3.0 mmol/L 3.5-5.2 chloride, serum [...] 0.50 mg/dL 0.00-1.00 sodium, serum 128 mmol/L 082-514 4990/10/29 potassium, serum 2.6 mmol/L 3.5-5.2 chloride, serum [...] 0.50 mg/dL 0.00-1.00 sodium, serum 141 mmol/L 552-908 6162/01/14 potassium, serum 3.9 mmol/L 3.5-5.2 chloride, serum [...] 11 .6-14.8 platelet count 428 10^3/MM^3 10*3/mm3 933-090 9205/11/05 leukocyte count, blood 16.4 10^3/MM^3 10*3/mm3 4.6-10.2 [...] 11 .6-14.8 platelet count 215 10^3/MM^3 10*3/mm3 936-111 8067/10/29 leukocyte count, blood 26.3 10^3/MM^3 10*3/mm3 4.6-10.2 [...] 11 .6-14.8 platelet count 268 10^3/MM^3 10*3/mm3 711-265 3294/11/12 leukocyte count, blood 12.1 10^3/MM^3 10*3/mm3 4.6-10.2 [...] 11 .6-14.8 platelet count 157 10^3/MM^3 10*3/mm3 487-945 2735/11/25 leukocyte count, blood 21.1 10^3/MM^3 10*3/mm3 4.6-10.2 [...] 11 .6-14.8 platelet count 46 10^3/MM^3 10*3/mm3 156-640 4559/12/17 leukocyte count, blood 18.6 10^3/MM^3 10*3/mm3 4.6-10.2 [...] 11 .6-14.8 platelet count 75 10^3/MM^3 10*3/mm3 455-195 5491/12/24 leukocyte count, blood 14.0 10^3/MM^3 10*3/mm3 4.6-10.2 [...] 11 .6-14.8 platelet count 66 10^3/MM^3 10*3/mm3 681-053 1407/01/14 leukocyte count, blood 6.2 10^3/MM^3 10*3/mm3 4.6-10.2 [...] - Chem istry sodium, serum 141 mmol/L 758-535 9436/11/19 potassium, serum 3.9 mmol/L 3.5-5.2 chloride, serum [...] 0.50 mg/dL 0.00-1.00 sodium, serum 142 mmol/L 295-935 6953/12/10 potassium, serum 3.9 mmol/L 3.5-5.2 chloride, serum [...] Diff/Morphology - Chemistry sodium, serum 142 mmol/L 564-291 9174/12/31 potassium, serum 3.6 mmol/L 3.5-5.2 chloride, serum [...] Panel - Chemistry cholesterol, serum 209 mg/dL 115-226 9430/09/11 triglyceride, serum, fasting 113 mg/dL 30-200 HDL cholesterol, serum 50 mg/dL 32-96 LDL cholesterol, serum 136 mg/dL 0-130 Encounters Code Encounter Date Provider Facility CPT-18726 Level 4 Est. Patient 20:04:51 CDT Hope cohn MD PhD [facility] CPT-04112 Level 3 New Patient 01:46:11 GRADING CLERK Hope landers MD PhD [facility] Procedures Code Procedure Name Date Entry Date Standard Desc ription CPT-G0008 Administration of Influenza Virus Vaccine 13:36:47 CDT CPT-63011 Fluzone High-Dose Intramuscular Suspension 11/15 13:36:47 CDT CPT-J0897 Prolia 60 mg 08:50:41 CDT CPT-54050 Abx/Therapy Injection 08:50:41 CDT CPT-97138 Bone Density 12:06:12 CDT CPT-72996 Bone Density 08:54:40 CDT CPT-OV Office Visit 15:37:02 CDT CPT-26590 Postop F/U Visit 15:47:49 CDT CPT-00204 Postop F/U Visit 15:21:02 CDT CPT-TCMH Transitional Care Mgmt-High 07:52:27 CDT 20 20/06/01 CPT-88068 Venipuncture Draw Fee 13:51:18 CDT CPT-83838 Venipuncture Draw Fee 10:14:55 GRADING CLERK CPT-19705 Venipuncture Draw Fee 13:39:45 GRADING CLERK CPT-OV Office Visit 15:11:22 GRADING CLERK CPT-19630 Venipuncture Draw Fee 09:20:49 GRADING CLERK CPT-35795 Venipuncture Draw Fee 16:52:15 GRADING CLERK CPT-76700 Venipuncture Draw Fee 10:37:24 GRADING CLERK CPT-34427 Venipuncture Draw Fee 08:21:21 GRADING CLERK CPT-11626 Venipuncture Draw Fee 08:30:20 GRADING CLERK CPT-76494 Venipuncture Draw Fee 14:53:21 GRADING CLERK CPT-63167 Venipuncture Draw Fee 09:40:56 GRADING CLERK CPT-91133 Venipuncture Draw Fee 10:30:47 GRADING CLERK CPT-93899 Venipuncture Draw Fee 10:46:17 GRADING CLERK CPT-15095 Venipuncture Draw Fee 11:12:45 GRADING CLERK CPT-99441 Venipuncture Draw Fee 09:53:33 GRADING CLERK CPT-78127 Venipuncture Draw Fee 11:53:51 GRADING CLERK CPT-43469 Venipuncture Draw Fee 10:33:50 GRADING CLERK CPT-12037 Venipuncture Draw Fee 10:05:01 GRADING CLERK CPT-68415 Venipuncture Draw Fee 14:32:52 GRADING CLERK CPT-39525 Venipuncture Draw Fee 09:46:13 GRADING CLERK CPT-28688 Venipuncture Draw Fee 11:34:27 GRADING CLERK CPT-30656 Venipuncture Draw Fee 13:17:16 GRADING CLERK CPT-61341 Venipuncture Draw Fee 12:05:39 CDT CPT-11395 Venipuncture Draw Fee 12:49:12 CDT CPT-04992 Venipuncture Draw Fee 12:37:18 CDT CPT-81656 Venipuncture Draw Fee 10:57:11 CDT CPT-07771 Venipuncture Draw Fee 13:47:40 CDT CPT-22223 Venipuncture Draw Fee 10:02:17 CDT CPT-55409 TB Tubersol 17:32:32 CDT CPT-OV Office Visit 16:21:53 CDT CPT-OV Office Visit 15:49:22 CDT CPT-OV Office Visit 17:16:31 CDT CPT-OV Office Visit 10:43:31 CDT
--- OUTSIDE RECORDS SUMMARY | 2019-02-09 13:38 | XMS REPORT ---
Author Author [facility] Medic al YUDITH Rivera Organization [facility] Address [address], [place] [address] Phone [phone] Care Team Providers Care Senior Director Creative Services Name Role Phone OSITO TAVERAS MD PP [phone] Summary purpose TRANSITION OF CARE AUTO GENERATION [...] diagnostic tests and/or laboratory data RESULTS Chemistry 93-79-079724:17:00 Result Normal Range Units Magnesium 1.7 1.7-2.8 mg/dl :25:00 Result Normal Range Units Magnesium L 1.6 1.7-2.8 mg/dl 85-20-552525:05:00 Result Normal Range Units Magnesium 1.7 1.7-2.8 mg/dl :17:00 Result Normal Range Units Magnesium L 1.6 1.7-2.8 mg/dl 55-37-609623:05:00 Result Normal Range Units Magnesium H 3.4 1.7-2.8 mg/dl :17:00 Result Normal Range Units Magnesium H 3.6 1.7-2.8 mg/dl :53:00 Result Normal Range Units Magnesium 1.8 1.7-2.8 mg/dl :25:00 Result Normal Range Units Magnesium L 1.5 1.7-2.8 mg/dl :17:00 Result Normal Range Units Magnesium 1.8 1.7-2.8 mg/dl :30:00 Result Normal Range Units Magnesium 1.8 1.7-2.8 mg/dl Reference Lab ([facility]) 19-47-576677:55:00 Result Normal Range Units Vit D 25 [...] Reference Range: Not established TEST PERFORMED AT: [facility] [address] [address] MIC VARGAS MD,AP Vit D 25 OH [...] its performance characteristics have been determined by [facility], [place], [place]. Performance characteristic s refer to the analytical performance of the test. TEST PERFORMED AT: [facility] [address] [place] [address] MIC VARGAS MD,FCAP History of procedures No procedures recorded for this patient visit. Functional status Functional Status Finding Observation Time Hearing Prob Loc none 33-33-347469:10 Vision Problems no 87-41-199065:10 Ambulation Asst Dev none 86-35-452856:10 Bathing Assistance none :10 Eating Assistance none 85-84-181296:10 Dressing Assistance none 58-14-300921:10 Toileting Assistance none 66-84-551424:10 Transfer Assistance none 24-45-047354:10 Decline Slf Care/Mob no 97-43-101167:10 Phys Cond Stable yes 95-38-191578:10 Cognitive Status Finding Observation Time Oriented To Date 5 Yes 37-73-450220:[address] 5 Yes 04-50-614230:10 Name 3 Objects 3 Yes 70-91-598093:10 Name Object in Rm 2 Yes 52-24-921339:10 Recall 3 Objects 3 Yes 98-83-389046:10 Repeats a Phrase 1 Yes 69-45-035405:10 Follows Verbal Direc 3 Yes 45-71-188133:10 Follows Written Dire 1 Yes 78-87-622418:10 Write a Sentance 1 Yes 07-03-617299:10 Draw an Object 1 Yes 92-67-853105:10 Mini Mental Total 25 points 60-07-170805:10 Less than 20 Phys not applicable 83-21-068534:10 Learning Ability comprehends well 12-25-617368:10 Neurological no 59-78-857348:10 Psychological no 08-03-462876:10 Physical no 77-51-771745:10 Hearing no 58-45-949876:10 Superintendent Stevedoring Needed no 01-17-002693:10 Sign Language no 09-62-161311:10 Emotional no 14-69-935633:10 Vision no 21-98-443712:10 Laguage no 36-97-053244:10 Financial no 55-63-531327:10 Vital signs Type Value Date Respiration Rate 18breaths per minute 26-91-444640: 55 Pulse 65beats per minute 02-45-092699:55 Oxygen Saturation 97% 83-45-588057:55 BP Systolic 117mmHg 54-05-718281:55 BP Diastolic 50mmHg 03-92-427894:55 Temperature 97.6F 17-39-329567:55 Height 63inches 43-11-773832:10 Weight 120LB 76-42-318873:10 Social history Type Value Smoking Status NEVER SMOKER Treatment Plan No treatment plan text is available for this visit. Hospital discharge instructions Valuables no
--- OUTSIDE RECORDS SUMMARY | 2019-02-09 13:38 | XMS REPORT | Clinical Summary ---
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 Dick Yates MD [...] Instructions Start Date Stop Date Generic Name [facility] Status Provider Patient Instruction PROZAC 20 MG CAPS 1 q d FLUOXETINE HCL 15381 806968 No Longer Active Hope Benavidez MD PhD Active INNOPRAN XL 120 MG [id number] Take one by mouth daily PROPRANOLOL HCL SR BEADS 29559350126 Active Hope Benavidez MD PhD Active POTASSIUM CHLORIDE 20 MEQ PACK by mouth twice a day prn POTASSIUM CHLORIDE 49077795106 Active Adam Yates MD Activ e CYCLOBENZAPRINE HCL 10 MG TABS 1 tablet by mouth three times daily as needed for headaches CYCLOBENZAPRINE HCL 19866615933 Active Selena Yates MD Active SIMVASTATIN 40 MG TABS 1 qd SIMVASTATIN 004 38189375 No Longer Active Adam Yates MD Active MELOXICAM 15 MG TABS 1 qd MELOXICAM 2575857 3066 No Longer Active Adam Yates MD Active ATENOLOL 50 MG TABS 1/2 tab q other day ATENOLOL 01192802489 Active Hope Benavidez MD PhD Active OMEPRAZOLE 20 MG CPDR 1 tablet by mouth daily for GERD OMEPRAZOLE 78620698696 Active Hope Benavidez MD PhD Active IMODIUM A-D 2 MG TABS 2 onset at diarrhea and prn. LOPERAMIDE HCL 97853042012 Active Hope Benavidez MD PhD Active PHENADOZ 25 MG SUPP 1 every 4 hrs. PRN PROMETHAZINE HCL 76823628960 Active Hope Benavidez MD PhD Active PROMETHAZINE HCL 25 MG TABS 1 Q. 4 hr. PRN PROMETH AZINE HCL 05018092977 Active Hope Benavidez MD PhD Active EXCEDRIN EXTRA STRENGTH 250-250-65 MG TABS 1-2 q6h PRN headache 201 04/16/21 [id number]-CNINNBAS 09263457443 Active Hope Benavidez MD PhD Active ZOFRAN 4 MG TABS 1 q 6 hr prn ONDANSETRON HCL 1548402 7002 Active Fay Alberts Active FLAGYL 500 MG TABS 1 qid METRONIDAZOLE 71751 778117 No Longer Active Adam Yates MD Active LEVAQUIN 750 MG TABS 1 qd LEVOFLOXACIN 5486 6786076 No Longer Active Adam Yates MD Active DYAZIDE 37.5-25 MG CAPS 1 qd TRIAMTERENE-HCTZ 5886 1536228 Active Hope Benavidez MD PhD Active ADULT ASPIRIN LOW STRENGTH 81 MG TBDP 1 qd A SPIRIN 20217472875 Active Hope Benavidez MD PhD Active LEVAQUIN 750 MG TABS 1 qd LEVAQUIN 750 MG T ABS 936007 LEVOFLOXACIN Inactive FLAGYL 500 MG TABS 1 qid FLAGYL 500 MG TABS 874857 METRONIDAZOLE Inactive MELOXICAM 15 MG TABS 1 qd MELOXICAM 15 MG T ABS 692079 MELOXICAM Inactive SIMVASTATIN 40 MG TABS 1 qd SIMVASTATIN 40 MG TABS 439772 SIMVASTATIN Inactive PROZAC 20 MG CAPS 1 [...] - Chem istry sodium, serum 137 mmol/L 253-348 0987/11/01 potassium, serum 3.7 mmol/L 3.5-5.2 chloride, serum 100 mmol/L 98-107 carbon dioxide, venous blood 31.8 mmol/L 21.0-32 .0 blood glucose 98 mg/dL 65-110 calcium, serum 8.6 mg/dL 8.5-10.1 urea nitrogen, blood 23 mg/dL 7-18 creatinine, serum 1.50 mg/dL 0.60-1.30 sodium, serum 136 mmol/L 425-068 6944/05/02 potassium, serum 4.1 mmol/L 3.5-5.2 chloride, serum [...] 11 .6-14.8 platelet count 133 10^3/MM^3 10*3/mm3 466-845 9272/01/17 leukocyte count, blood 3.1 10^3/MM^3 10*3/mm3 4.6-10.2 [...] 11 .6-14.8 platelet count 22 10^3/MM^3 10*3/mm3 819-666 1176/11/19 leukocyte count, blood 10.4 10^3/MM^3 10*3/mm3 4.6-10.2 [...] Verified By Repeat Analysis 10^3/mm ^3 10*3/mm3 475-214 7843/12/10 leukocyte count, blood 7.8 10^3/MM^3 10*3/mm3 4.6-10.2 [...] Panel - Chemistry sodium, serum 139 mmol/L 981-243 9071/12/03 potassium, serum 3.7 mmol/L 3.5-5.2 chloride, serum [...] 0.40 mg/dL 0.00-1.00 sodium, serum 137 mmol/L 234-244 9831/10/01 potassium, serum 3.5 mmol/L 3.5-5.2 chloride, serum [...] 0.60 mg/dL 0.00-1.00 sodium, serum 139 mmol/L 529-847 2173/10/17 potassium, serum 3.1 mmol/L 3.5-5.2 chloride, serum [...] 0.30 mg/dL 0.00-1.00 sodium, serum 139 mmol/L 688-343 6695/01/21 potassium, serum 3.4 mmol/L 3.5-5.2 chloride, serum [...] 0.40 mg/dL 0.00-1.00 sodium, serum 138 mmol/L 434-980 3418/01/28 potassium, serum 3.2 mmol/L 3.5-5.2 chloride, serum [...] 0.40 mg/dL 0.00-1.00 sodium, serum 140 mmol/L 266-629 7225/02/04 potassium, serum 3.6 mmol/L 3.5-5.2 chloride, serum [...] 0.70 mg/dL 0.00-1.00 sodium, serum 142 mmol/L 172-062 6881/01/03 potassium, serum 3.4 mmol/L 3.5-5.2 chloride, serum [...] 0.50 mg/dL 0.00-1.00 sodium, serum 140 mmol/L 980-671 9340/01/06 potassium, serum 3.4 mmol/L 3.5-5.2 chloride, serum [...] 0.40 mg/dL 0.00-1.00 sodium, serum 136 mmol/L 441-174 5950/04/03 sodium, serum 136 mmol/L 297-968 6135/04/03 potassium, serum 3.7 mmol/L 3.5-5.2 chloride, serum [...] 0.40 mg/dL 0.00-1.00 sodium, serum 136 mmol/L 818-515 3950/02/11 potassium, serum 3.1 mmol/L 3.5-5.2 chloride, serum [...] 0.50 mg/dL 0.00-1.00 sodium, serum 139 mmol/L 000-126 4278/02/18 potassium, serum 3.6 mmol/L 3.5-5.2 chloride, serum [...] 11 .6-14.8 platelet count 246 10^3/MM^3 10*3/mm3 202-039 9578/02/18 leukocyte count, blood 4.0 10^3/MM^3 10*3/mm3 4.6-10.2 [...] 11 .6-14.8 platelet count 134 10^3/MM^3 10*3/mm3 867-388 9063/10/01 erythrocyte (RBC) count 3.96 10^6/MM^3 10*6/mm3 4.04-5.4 [...] 11 .6-14.8 platelet count 96 10^3/MM^3 10*3/mm3 077-418 4216/01/06 leukocyte count, blood 7.6 10^3/MM^3 10*3/mm3 [...] 11 .6-14.8 platelet count 132 10^3/MM^3 10*3/mm3 202-172 4453/02/11 leukocyte count, blood 4.8 10^3/MM^3 10*3/mm3 4.6-10.2 [...] 11 .6-14.8 platelet count 102 10^3/MM^3 10*3/mm3 932-228 1164/02/04 leukocyte count, blood 3.6 10^3/MM^3 10*3/mm3 4.6-10.2 [...] 11 .6-14.8 platelet count 70 10^3/MM^3 10*3/mm3 744-142 6481/01/28 leukocyte count, blood 4.2 10^3/MM^3 10*3/mm3 4.6-10.2 [...] 11 .6-14.8 platelet count 73 10^3/MM^3 10*3/mm3 597-371 3792/01/21 leukocyte count, blood 4.9 10^3/MM^3 10*3/mm3 4.6-10.2 [...] .6-14.8 platelet count 38 recounted 10^3/mm^3 10*3/mm3 881-998 2627/10/08 leukocyte count, blood 2.9 10^3/MM^3 10*3/mm3 4.6-10.2 [...] 11 .6-14.8 platelet count 229 10^3/MM^3 10*3/mm3 769-656 4234/10/17 leukocyte count, blood 12.0 10^3/MM^3 10*3/mm3 4.6-10.2 [...] 11 .6-14.8 platelet count 232 10^3/MM^3 10*3/mm3 767-747 0745/10/01 hemoglobin, blood 11.2 g/dL 12.0-16.0 hematocrit, blood 34.4 % 36.0-46.0 mean corpuscular volume, RBC 87 fL 80-97 mean corpuscular hemoglobin, RBC 28.3 pg 27. 0-31.2 mean corpuscular hemoglobin concentration, RBC 32.6 G/DL % 31.8-35.4 red blood cell distribution width 18.2 % 11 .6-14.8 platelet count 378 10^3/MM^3 10*3/mm3 286-733 2290/12/03 leukocyte count, blood 8.2 10^3/MM^3 10*3/mm3 4.6-10.2 [...] Diff/Morphology - Chemistry sodium, serum 141 mmol/L 954-499 1207/11/25 potassium, serum 3.9 mmol/L 3.5-5.2 chloride, serum [...] 0.50 mg/dL 0.00-1.00 sodium, serum 137 mmol/L 327-247 6593/11/12 potassium, serum 3.2 mmol/L 3.5-5.2 chloride, serum [...] 0.40 mg/dL 0.00-1.00 sodium, serum 140 mmol/L 415-408 5200/12/17 potassium, serum 3.3 mmol/L 3.5-5.2 chloride, serum [...] 0.40 mg/dL 0.00-1.00 sodium, serum 138 mmol/L 425-897 4431/12/24 potassium, serum 3.7 mmol/L 3.5-5.2 chloride, serum [...] 0.50 mg/dL 0.00-1.00 sodium, serum 138 mmol/L 345-314 5191/11/05 potassium, serum 3.9 mmol/L 3.5-5.2 chloride, serum [...] 0.40 mg/dL 0.00-1.00 sodium, serum 135 mmol/L 778-791 8363/10/22 potassium, serum 3.0 mmol/L 3.5-5.2 chloride, serum [...] 0.50 mg/dL 0.00-1.00 sodium, serum 128 mmol/L 279-032 3177/10/29 potassium, serum 2.6 mmol/L 3.5-5.2 chloride, serum [...] 0.50 mg/dL 0.00-1.00 sodium, serum 141 mmol/L 979-457 4829/01/14 potassium, serum 3.9 mmol/L 3.5-5.2 chloride, serum [...] 11 .6-14.8 platelet count 22 10^3/MM^3 10*3/mm3 755-661 1621/10/22 leukocyte count, blood 14.7 10^3/MM^3 10*3/mm3 4.6-10.2 [...] 11 .6-14.8 platelet count 428 10^3/MM^3 10*3/mm3 732-837 0497/10/29 leukocyte count, blood 26.3 10^3/MM^3 10*3/mm3 4.6-10.2 [...] 11 .6-14.8 platelet count 268 10^3/MM^3 10*3/mm3 001-325 1863/11/12 leukocyte count, blood 12.1 10^3/MM^3 10*3/mm3 4.6-10.2 [...] 11 .6-14.8 platelet count 157 10^3/MM^3 10*3/mm3 182-246 4743/11/05 leukocyte count, blood 16.4 10^3/MM^3 10*3/mm3 [...] 11 .6-14.8 platelet count 215 10^3/MM^3 10*3/mm3 482-186 9663/12/24 leukocyte count, blood 14.0 10^3/MM^3 10*3/mm3 4.6-10.2 [...] 11 .6-14.8 platelet count 66 10^3/MM^3 10*3/mm3 818-895 9470/12/17 leukocyte count, blood 18.6 10^3/MM^3 10*3/mm3 4.6-10.2 [...] 11 .6-14.8 platelet count 75 10^3/MM^3 10*3/mm3 333-669 7371/11/25 leukocyte count, blood 21.1 10^3/MM^3 10*3/mm3 4.6-10.2 [...] 11 .6-14.8 platelet count 413 10^3/MM^3 10*3/mm3 153-974 4823/01/16 leukocyte count, blood 3.6 10^3/MM^3 10*3/mm3 4.6-10.2 [...] - Chem istry sodium, serum 141 mmol/L 231-348 0022/11/19 potassium, serum 3.9 mmol/L 3.5-5.2 chloride, serum [...] 0.50 mg/dL 0.00-1.00 sodium, serum 142 mmol/L 798-391 7861/12/10 potassium, serum 3.9 mmol/L 3.5-5.2 chloride, serum [...] Diff/Morphology - Chemistry sodium, serum 142 mmol/L 498-577 4771/12/31 potassium, serum 3.6 mmol/L 3.5-5.2 chloride, serum [...] 3.5-5.2 Encounters Code Encounter Date Provider Facility CPT-96693 Level 3 New Patient 01:46:11 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 Hope landers MD PhD [facility] Procedures Code Procedure Name Date Entry Date Standard Desc ription CPT-91168 Venipuncture Draw Fee 13:51:18 CDT CPT-51071 Venipuncture Draw Fee 10:14:55 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 CPT-10188 Venipuncture Draw Fee 13:39:45 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 CPT-OV Office Visit 15:11:22 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 CPT-50799 Venipuncture Draw Fee 09:20:49 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 CPT-24920 Venipuncture Draw Fee 16:52:15 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 CPT-02724 Venipuncture Draw Fee 10:37:24 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 CPT-25275 Venipuncture Draw Fee 08:21:21 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 CPT-07073 Venipuncture Draw Fee 08:30:20 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 CPT-41050 Venipuncture Draw Fee 14:53:21 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 CPT-91676 Venipuncture Draw Fee 09:40:56 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 CPT-89239 Venipuncture Draw Fee 10:30:47 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 CPT-89923 Venipuncture Draw Fee 10:46:17 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 CPT-54582 Venipuncture Draw Fee 11:12:45 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 CPT-41898 Venipuncture Draw Fee 09:53:33 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 CPT-70747 Venipuncture Draw Fee 11:53:51 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 CPT-74163 Venipuncture Draw Fee 10:33:50 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 CPT-79012 Venipuncture Draw Fee 10:05:01 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 CPT-21282 Venipuncture Draw Fee 14:32:52 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 CPT-01553 Venipuncture Draw Fee 09:46:13 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 CPT-41962 Venipuncture Draw Fee 11:34:27 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 CPT-97214 Venipuncture Draw Fee 13:17:16 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 CPT-49473 Venipuncture Draw Fee 12:05:39 CDT CPT-14436 Venipuncture Draw Fee 12:49:12 CDT CPT-94142 Venipuncture Draw Fee 12:37:18 CDT CPT-01157 Venipuncture Draw Fee 10:57:11 CDT CPT-77949 Venipuncture Draw Fee 13:47:40 CDT CPT-80731 Venipuncture Draw Fee 10:02:17 CDT CPT-25868 TB Tubersol 17:32:32 CDT CPT-OV Office Visit 16:21:53 CDT CPT-OV Office Visit 15:49:22 CDT CPT-OV Office Visit 17:16:31 CDT CPT-OV Office Visit 10:43:31 CDT
--- OUTSIDE RECORDS SUMMARY | 2019-02-09 13:39 | XMS REPORT | Clinical Summary ---
Author Author Florecita Macario Organization [facility] Address Unknown Phone Unavailable Allergies, Adverse [...] cohn MD PhD UNSPECIFIED VENOUS INSUFFICIENCY ICD-459.81 [place] [address] Adam Yates MD ADENOCARCINOMA, ASCENDING COLON [...] mouth every 12 hours prn ONDANSETRON HCL 72521627764 Active Laura Elder Active FLAGYL 500 MG TABS 1 pill by mouth three times daily, for diarrh ea METRONIDAZOLE 56148609510 No Longer Active Hope Benavidez MD PhD Active MAGNESIUM GLUCONATE 250 MG TABS 1 tab daily MAG NESIUM GLUCONATE 95801672747 Active Hope Benavidez MD PhD Active DYAZIDE 37.5-25 MG CAPS 1 qd TRIAMTERENE-HC TZ 74120508361 No Longer Active Hope Benavidez MD PhD Active PROZAC 20 MG CAPS 1 q d FLUOXETINE HCL 93406 197501 No Longer Active Hope Benavidez MD PhD Active INNOPRAN XL 120 MG [id number] Take one by mouth daily PROPRANOLOL HCL SR BEADS 89066534707 Active Hope Benavidez MD PhD Active POTASSIUM CHLORIDE 20 MEQ PACK by mouth twice a day prn POTASSIUM CHLORIDE 23795232668 Active Adam Yates MD Activ e CYCLOBENZAPRINE HCL 10 MG TABS 1 tablet by mouth three times daily as needed for headaches CYCLOBENZAPRINE HCL 93498969279 Active Selena Yates MD Active SIMVASTATIN 40 MG TABS 1 qd SIMVASTATIN 004 48782155 No Longer Active Adam Yates MD Active MELOXICAM 15 MG TABS 1 qd MELOXICAM 2403590 6649 No Longer Active Adam Yates MD Active ATENOLOL 50 MG TABS 1/2 tab q other day ATENOLOL 30938712382 Active Hope Benavidez MD PhD Active OMEPRAZOLE 20 MG CPDR 1 tablet by mouth daily for GERD OMEPRAZOLE 20124787856 Active Hope Benavidez MD PhD Active IMODIUM A-D 2 MG TABS 2 onset at diarrhea and prn. LOPERAMIDE HCL 44637941158 Active Hope Benavidez MD PhD Active PHENADOZ 25 MG SUPP 1 every 4 hrs. PRN PROMETHAZINE HCL 09379034580 Active Hope Benavidez MD PhD Active PROMETHAZINE HCL 25 MG TABS 1 Q. 4 hr. PRN PROMETH AZINE HCL 56066213740 Active Hope Benavidez MD PhD Active EXCEDRIN EXTRA STRENGTH 250-250-65 MG TABS 1-2 q6h PRN headache 201 04/16/21 [id number] 11434833106 Active Hope Benavidez MD PhD Active FLAGYL 500 MG TABS 1 qid METRONIDAZOLE 19048 340007 No Longer Active Adam Yates MD Active LEVAQUIN 750 MG TABS 1 qd LEVOFLOXACIN 5486 0420848 No Longer Active Adam Yates MD Active ADULT ASPIRIN LOW STRENGTH 81 MG TBDP 1 qd A SPIRIN 94906976424 Active Hope Benavidez MD PhD Active LEVAQUIN 750 MG TABS 1 qd LEVAQUIN 750 MG T ABS 035996 LEVOFLOXACIN Inactive FLAGYL 500 MG TABS 1 qid FLAGYL 500 MG TABS 646382 METRONIDAZOLE Inactive MELOXICAM 15 MG TABS 1 qd MELOXICAM 15 MG T ABS 849969 MELOXICAM Inactive SIMVASTATIN 40 MG TABS 1 qd SIMVASTATIN 40 MG TABS 706679 SIMVASTATIN Inactive PROZAC 20 MG CAPS 1 q d PROZAC 20 MG CAPS 31 0385 FLUOXETINE HCL Inactive DYAZIDE 37.5-25 MG CAPS 1 qd DYAZIDE 37.5 -25 MG CAPS 120549 TRIAMTERENE-HCTZ Inactive FLAGYL 500 MG TABS 1 pill by mouth three times daily, for diarrh ea FLAGYL 500 MG TABS 183047 METRONIDAZOLE Inactive Advance Directives Directive Description Start [...] - Chem istry sodium, serum 137 mmol/L 637-218 7965/11/01 potassium, serum 3.7 mmol/L 3.5-5.2 chloride, serum 100 mmol/L 98-107 carbon dioxide, venous blood 31.8 mmol/L 21.0-32 .0 blood glucose 98 mg/dL 65-110 calcium, serum 8.6 mg/dL 8.5-10.1 urea nitrogen, blood 23 mg/dL 7-18 creatinine, serum 1.50 mg/dL 0.60-1.30 sodium, serum 136 mmol/L 121-391 1318/05/02 potassium, serum 4.1 mmol/L 3.5-5.2 chloride, serum 99 mmol/L 98-107 carbon dioxide, venous blood 30.7 mmol/L 21.0-32 .0 blood glucose 79 mg/dL 65-110 calcium, serum 8.7 mg/dL 8.5-10.1 urea nitrogen, blood 11 mg/dL 7-18 creatinine, serum 1.10 mg/dL 0.60-1.30 Lab Report: [facility] - Chemistry sodium, serum 141 mmol/L [...] 11 .6-14.8 platelet count 133 10^3/MM^3 10*3/mm3 073-130 4062/01/17 leukocyte count, blood 3.1 10^3/MM^3 10*3/mm3 4.6-10.2 [...] 11 .6-14.8 platelet count 22 10^3/MM^3 10*3/mm3 276-758 0352/11/19 leukocyte count, blood 10.4 10^3/MM^3 10*3/mm3 4.6-10.2 [...] Verified By Repeat Analysis 10^3/mm ^3 10*3/mm3 866-432 4014/12/10 leukocyte count, blood 7.8 10^3/MM^3 10*3/mm3 4.6-10.2 [...] Panel - Chemistry sodium, serum 139 mmol/L 001-300 7091/12/03 potassium, serum 3.7 mmol/L 3.5-5.2 chloride, serum [...] 0.40 mg/dL 0.00-1.00 sodium, serum 142 mmol/L 839-558 8970/01/03 potassium, serum 3.4 mmol/L 3.5-5.2 chloride, serum [...] 0.50 mg/dL 0.00-1.00 sodium, serum 137 mmol/L 241-594 4559/10/01 potassium, serum 3.5 mmol/L 3.5-5.2 chloride, serum [...] 0.60 mg/dL 0.00-1.00 sodium, serum 136 mmol/L 979-458 3730/10/08 potassium, serum 3.1 mmol/L 3.5-5.2 chloride, serum [...] 0.60 mg/dL 0.00-1.00 sodium, serum 139 mmol/L 677-276 6454/10/17 potassium, serum 3.1 mmol/L 3.5-5.2 chloride, serum [...] 0.30 mg/dL 0.00-1.00 sodium, serum 140 mmol/L 544-883 6000/01/06 potassium, serum 3.4 mmol/L 3.5-5.2 chloride, serum [...] 0.40 mg/dL 0.00-1.00 sodium, serum 139 mmol/L 806-527 4954/01/21 potassium, serum 3.4 mmol/L 3.5-5.2 chloride, serum [...] 0.40 mg/dL 0.00-1.00 sodium, serum 138 mmol/L 896-625 3462/01/28 potassium, serum 3.2 mmol/L 3.5-5.2 chloride, serum [...] 0.40 mg/dL 0.00-1.00 sodium, serum 140 mmol/L 940-350 6528/02/04 potassium, serum 3.6 mmol/L 3.5-5.2 chloride, serum [...] 0.70 mg/dL 0.00-1.00 sodium, serum 136 mmol/L 209-277 4496/02/11 potassium, serum 3.1 mmol/L 3.5-5.2 chloride, serum [...] 0.50 mg/dL 0.00-1.00 sodium, serum 138 mmol/L 936-783 7962/08/14 potassium, serum 4.0 mmol/L 3.5-5.2 chloride, serum [...] 0.40 mg/dL 0.00-1.00 sodium, serum 136 mmol/L 073-766 4224/04/03 potassium, serum 3.7 mmol/L 3.5-5.2 chloride, serum [...] 0.40 mg/dL 0.00-1.00 sodium, serum 139 mmol/L 757-539 0644/02/18 potassium, serum 3.6 mmol/L 3.5-5.2 chloride, serum [...] 11 .6-14.8 platelet count 246 10^3/MM^3 10*3/mm3 842-996 8200/08/14 leukocyte count, blood 5.8 10^3/MM^3 10*3/mm3 4.6-10.2 [...] 11 .6-14.8 platelet count 193 10^3/MM^3 10*3/mm3 544-915 4010/02/18 leukocyte count, blood 4.0 10^3/MM^3 10*3/mm3 4.6-10.2 [...] 11 .6-14.8 platelet count 134 10^3/MM^3 10*3/mm3 474-269 3315/02/11 leukocyte count, blood 4.8 10^3/MM^3 10*3/mm3 4.6-10.2 [...] 11 .6-14.8 platelet count 102 10^3/MM^3 10*3/mm3 120-115 0720/02/04 leukocyte count, blood 3.6 10^3/MM^3 10*3/mm3 4.6-10.2 [...] 11 .6-14.8 platelet count 70 10^3/MM^3 10*3/mm3 043-068 7769/01/28 leukocyte count, blood 4.2 10^3/MM^3 10*3/mm3 4.6-10.2 [...] 11 .6-14.8 platelet count 73 10^3/MM^3 10*3/mm3 278-806 1052/01/03 leukocyte count, blood 8.1 10^3/MM^3 10*3/mm3 4.6-10.2 [...] 11 .6-14.8 platelet count 96 10^3/MM^3 10*3/mm3 929-653 8710/01/21 leukocyte count, blood 4.9 10^3/MM^3 10*3/mm3 4.6-10.2 [...] .6-14.8 platelet count 38 recounted 10^3/mm^3 10*3/mm3 841-282 6754/10/08 leukocyte count, blood 2.9 10^3/MM^3 10*3/mm3 4.6-10.2 [...] 11 .6-14.8 platelet count 229 10^3/MM^3 10*3/mm3 895-509 9893/10/17 leukocyte count, blood 12.0 10^3/MM^3 10*3/mm3 4.6-10.2 [...] 11 .6-14.8 platelet count 232 10^3/MM^3 10*3/mm3 113-722 8542/10/01 leukocyte count, blood 8.3 10^3/MM^3 10*3/mm3 4.6-10.2 [...] 11 .6-14.8 platelet count 378 10^3/MM^3 10*3/mm3 855-186 4306/01/06 leukocyte count, blood 7.6 10^3/MM^3 10*3/mm3 4.6-10.2 [...] 11 .6-14.8 platelet count 132 10^3/MM^3 10*3/mm3 519-321 4487/12/03 leukocyte count, blood 8.2 10^3/MM^3 10*3/mm3 4.6-10.2 [...] Diff/Morphology - Chemistry sodium, serum 141 mmol/L 422-838 9012/11/25 potassium, serum 3.9 mmol/L 3.5-5.2 chloride, serum [...] 0.50 mg/dL 0.00-1.00 sodium, serum 137 mmol/L 074-883 1452/11/12 potassium, serum 3.2 mmol/L 3.5-5.2 chloride, serum [...] 0.40 mg/dL 0.00-1.00 sodium, serum 140 mmol/L 297-023 0505/12/17 potassium, serum 3.3 mmol/L 3.5-5.2 chloride, serum [...] 0.40 mg/dL 0.00-1.00 sodium, serum 138 mmol/L 275-432 9295/12/24 potassium, serum 3.7 mmol/L 3.5-5.2 chloride, serum [...] 0.50 mg/dL 0.00-1.00 sodium, serum 135 mmol/L 650-952 2368/10/22 potassium, serum 3.0 mmol/L 3.5-5.2 chloride, serum [...] 0.50 mg/dL 0.00-1.00 sodium, serum 138 mmol/L 876-234 3016/11/05 potassium, serum 3.9 mmol/L 3.5-5.2 chloride, serum [...] 0.40 mg/dL 0.00-1.00 sodium, serum 128 mmol/L 467-597 7938/10/29 potassium, serum 2.6 mmol/L 3.5-5.2 chloride, serum [...] 0.50 mg/dL 0.00-1.00 sodium, serum 141 mmol/L 596-488 5751/01/14 potassium, serum 3.9 mmol/L 3.5-5.2 chloride, serum [...] 11 .6-14.8 platelet count 22 10^3/MM^3 10*3/mm3 151-353 6256/10/22 leukocyte count, blood 14.7 10^3/MM^3 10*3/mm3 4.6-10.2 [...] 11 .6-14.8 platelet count 428 10^3/MM^3 10*3/mm3 676-320 6470/11/05 leukocyte count, blood 16.4 10^3/MM^3 10*3/mm3 4.6-10.2 [...] 11 .6-14.8 platelet count 215 10^3/MM^3 10*3/mm3 326-612 4930/11/12 leukocyte count, blood 12.1 10^3/MM^3 10*3/mm3 4.6-10.2 [...] 11 .6-14.8 platelet count 157 10^3/MM^3 10*3/mm3 661-129 2232/10/29 leukocyte count, blood 26.3 10^3/MM^3 10*3/mm3 4.6-10.2 [...] 11 .6-14.8 platelet count 268 10^3/MM^3 10*3/mm3 204-363 9661/12/24 leukocyte count, blood 14.0 10^3/MM^3 10*3/mm3 4.6-10.2 [...] 11 .6-14.8 platelet count 66 10^3/MM^3 10*3/mm3 469-744 5261/11/25 leukocyte count, blood 21.1 10^3/MM^3 10*3/mm3 4.6-10.2 [...] 11 .6-14.8 platelet count 46 10^3/MM^3 10*3/mm3 245-097 6966/12/17 leukocyte count, blood 18.6 10^3/MM^3 10*3/mm3 4.6-10.2 [...] - Chem istry sodium, serum 141 mmol/L 381-806 9794/11/19 potassium, serum 3.9 mmol/L 3.5-5.2 chloride, serum [...] 0.50 mg/dL 0.00-1.00 sodium, serum 142 mmol/L 536-026 8640/12/10 potassium, serum 3.9 mmol/L 3.5-5.2 chloride, serum [...] Diff/Morphology - Chemistry sodium, serum 142 mmol/L 878-185 3390/12/31 potassium, serum 3.6 mmol/L 3.5-5.2 chloride, serum [...] 12.0-16.0 Encounters Code Encounter Date Provider Facility CPT-60760 Level 3 New Patient 01:46:11 [employer] Hope landers MD PhD [facility] Procedures Code Procedure Name Date Entry Date Standard Desc ription CPT-59048 Postop F/U Visit 15:47:49 CDT CPT-65990 Postop F/U Visit 15:21:02 CDT CPT-TCMH Transitional Care Mgmt-High 07:52:27 CDT 20 20/06/01 CPT-92478 Venipuncture Draw Fee 13:51:18 CDT CPT-86531 Venipuncture Draw Fee 10:14:55 [employer] CPT-80470 Venipuncture Draw Fee 13:39:45 [employer] CPT-OV Office Visit 15:11:22 [employer] CPT-23541 Venipuncture Draw Fee 09:20:49 [employer] CPT-34932 Venipuncture Draw Fee 16:52:15 [employer] CPT-33974 Venipuncture Draw Fee 10:37:24 [employer] CPT-12555 Venipuncture Draw Fee 08:21:21 [employer] CPT-77372 Venipuncture Draw Fee 08:30:20 [employer] CPT-13986 Venipuncture Draw Fee 14:53:21 [employer] CPT-24451 Venipuncture Draw Fee 09:40:56 [employer] CPT-45445 Venipuncture Draw Fee 10:30:47 [employer] CPT-19845 Venipuncture Draw Fee 10:46:17 [employer] CPT-51195 Venipuncture Draw Fee 11:12:45 [employer] CPT-65930 Venipuncture Draw Fee 09:53:33 [employer] CPT-88844 Venipuncture Draw Fee 11:53:51 [employer] CPT-76251 Venipuncture Draw Fee 10:33:50 [employer] CPT-81032 Venipuncture Draw Fee 10:05:01 [employer] CPT-09294 Venipuncture Draw Fee 14:32:52 [employer] CPT-73426 Venipuncture Draw Fee 09:46:13 [employer] CPT-12873 Venipuncture Draw Fee 11:34:27 [employer] CPT-52106 Venipuncture Draw Fee 13:17:16 [employer] CPT-90509 Venipuncture Draw Fee 12:05:39 CDT CPT-45431 Venipuncture Draw Fee 12:49:12 CDT CPT-50807 Venipuncture Draw Fee 12:37:18 CDT CPT-79927 Venipuncture Draw Fee 10:57:11 CDT CPT-85934 Venipuncture Draw Fee 13:47:40 CDT CPT-61894 Venipuncture Draw Fee 10:02:17 CDT CPT-05849 TB Tubersol 17:32:32 CDT CPT-OV Office Visit 16:21:53 CDT CPT-OV Office Visit 15:49:22 CDT CPT-OV Office Visit 17:16:31 CDT CPT-OV Office Visit 10:43:31 CDT
--- OUTSIDE RECORDS SUMMARY | 2019-02-09 13:39 | XMS REPORT | Clinical Summary ---
Author Author Renaldo, Florecita Munoz Organization [facility] Address Unknown Phone Unavailable Allergies, Adverse Reactions, [...] (age-related) (natural) V49.8 1 Active Citlaly Roland [facility] Asymptomatic postmenopausal status (age- [...] cohn MD PhD UNSPECIFIED VENOUS INSUFFICIENCY ICD-459.81 [place] ctive Adam Yates MD ADENOCARCINOMA, ASCENDING [...] shot every 6 months for osteoprosis DENOSUMAB 30694478086 Active Hope Benavidez MD PhD Active CALCIUM + D + K 750-500-40 MG-UNT-MCG TABS 1 tab by mouth tw ice daily CALCIUM-VITAMIN D-VITAMIN K 81834104047 Active Hope landers MD PhD Active DAILY VALUE MULTIVITAMIN TABS 1 tab by mouth twice daily MULTIPLE VITAMIN 89683400367 Active Hope Benavidez MD PhD Active FISH OIL 306 MG CAPS 1 tab by mouth three times daily OMEGA-3 FATTY ACIDS 73274604572 Active Hope Benavidez MD PhD Active LUTEIN 10 MG TABS 1 tab daily LUTEIN 21506346706 Act cash Hope Benavidez MD PhD Active FLORANEX PACK 1 pack three times daily, for bowel health LACTOBACILLUS 91709258991 Active Hope Benavidez MD PhD Active LOMOTIL 2.5-0.025 MG TABS 1 tab by mouth prn DIPHENOXYLATE-ATROPINE 04521699940 Active Hope Benavidez MD PhD Active TRIAMTERENE-HCTZ 37.5-25 MG TABS 1 tab by mouth daily TRIAMTERENE-HCTZ 93803730584 Active Hope Benavidez MD PhD Acti ve IRON 325 (65 FE) MG TABS 1 tab daily FERROUS SULF ATE 55636520546 Active Hope Benavidez MD PhD Active MAGNESIUM GLUCONATE 250 MG TABS 1 tab tid MAGN ESIUM GLUCONATE 22669382718 Active Adam Yates MD Active ATENOLOL 50 MG TABS 1/2 tab q other day m-w-f ATE NOLOL 19965607935 Active Adam Yates MD Active PROPRANOLOL HCL 80 MG TABS 1 tab tue. and thur. PROPRANOLOL HCL 82539919905 Active Adam Yates MD Active CYCLOBENZAPRINE HCL 10 MG TABS 1 tablet by mouth three times daily as needed for headaches CYCLOBENZAPRINE HCL 62334201331 No Longe r Active Adam Yates MD Active OMEPRAZOLE 20 MG CPDR 1 tablet by mouth daily for GERD OMEPRAZOLE 42779098939 No Longer Active Adam Yates MD A ctive ZOFRAN 8 MG TABS 1 tab by mouth every 12 hours prn 201 05/16/09 ONDANSETRON HCL 54849755420 No Longer Active Adam Yates MD Active PHENADOZ 25 MG SUPP 1 every 4 hrs. PRN PROMETHA ZINE HCL 89628125076 No Longer Active Adam Yates MD Active POTASSIUM CHLORIDE 20 MEQ PACK by mouth twice a day prn POTASSIUM CHLORIDE 29310247217 No Longer Active Adam Yates MD Active PROMETHAZINE HCL 25 MG TABS 1 Q. 4 hr. PRN PROM ETHAZINE HCL 36874953450 No Longer Active Adam Yates MD Active INNOPRAN XL 120 MG [id number] Take one by mouth daily 2 PROPRANOLOL HCL SR BEADS 05647632660 No Longer Active Adam Yates MD A ctive FLAGYL 500 MG TABS 1 pill by mouth three times daily, for diarrh ea METRONIDAZOLE 48220323014 No Longer Active Hope Benavidez MD PhD Active DYAZIDE 37.5-25 MG CAPS 1 qd TRIAMTERENE-HC TZ 41229039471 No Longer Active Hope Benavidez MD PhD Active PROZAC 20 MG CAPS 1 q d FLUOXETINE HCL 35104 359348 No Longer Active Hope Benavidez MD PhD Active SIMVASTATIN 40 MG TABS 1 qd SIMVASTATIN 004 54941085 No Longer Active Adam Yates MD Active MELOXICAM 15 MG TABS 1 qd MELOXICAM 4653959 5754 No Longer Active Adam Yates MD Active IMODIUM A-D 2 MG TABS 2 onset at diarrhea and prn. LOPERAMIDE HCL 29310275758 Active Hope Benavidez MD PhD Active EXCEDRIN EXTRA STRENGTH 250-250-65 MG TABS 1-2 q6h PRN headache 201 04/16/21 [id number] 77433457962 Active Hope Benavidez MD PhD Active FLAGYL 500 MG TABS 1 qid METRONIDAZOLE 97381 816552 No Longer Active Adam Yates MD Active LEVAQUIN 750 MG TABS 1 qd LEVOFLOXACIN 5486 6985964 No Longer Active Adam Yates MD Active ADULT ASPIRIN LOW STRENGTH 81 MG TBDP 1 qd A SPIRIN 77936979636 Active Hope Benavidez MD PhD Active LEVAQUIN 750 MG TABS 1 qd LEVAQUIN 750 MG T ABS 561683 LEVOFLOXACIN Inactive FLAGYL 500 MG TABS 1 qid FLAGYL 500 MG TABS 073675 METRONIDAZOLE Inactive MELOXICAM 15 MG TABS 1 qd MELOXICAM 15 MG T ABS 177645 MELOXICAM Inactive SIMVASTATIN 40 MG TABS 1 qd SIMVASTATIN 40 MG TABS 906404 SIMVASTATIN Inactive PROZAC 20 MG CAPS 1 q d PROZAC 20 MG CAPS 31 0385 FLUOXETINE HCL Inactive DYAZIDE 37.5-25 MG CAPS 1 qd DYAZIDE 37.5 -25 MG CAPS 214739 TRIAMTERENE-HCTZ Inactive INNOPRAN XL 120 MG [id number] Take one by mouth daily 2 INNOPRAN XL 120 MG [id number] PROPRANOLOL HCL SR BEADS Inactive PROMETHAZINE HCL 25 MG TABS 1 Q. 4 hr. PRN PROMETHAZINE HCL 25 MG TABS 727637 PROMETHAZINE HCL Inactive POTASSIUM CHLORIDE 20 MEQ PACK by mouth twice a day prn POTASSIUM CHLORIDE 20 MEQ PACK 084020 POTASSIUM CHLORIDE Inactive PHENADOZ 25 MG SUPP 1 every 4 hrs. PRN PHENADOZ 2 5 MG SUPP 752293 PROMETHAZINE HCL Inactive ZOFRAN 8 MG TABS 1 tab by mouth every 12 hours prn 201 05/16/09 ZOFRAN 8 MG TABS 759874 ONDANSETRON HCL Inactive OMEPRAZOLE 20 MG CPDR 1 tablet by mouth daily for GERD OMEPRAZOLE 20 MG CPDR 185593 OMEPRAZOLE Inactive CYCLOBENZAPRINE HCL 10 MG TABS 1 tablet by mouth three times daily as needed for headaches CYCLOBENZAPRINE HCL 10 MG TABS 194428 CYCLOBENZAPRINE HCL Inactive FLAGYL 500 MG TABS 1 pill by mouth three times daily, for diarrh ea FLAGYL 500 MG TABS 619024 METRONIDAZOLE Inactive Advance Directives Directive Description Start [...] - Chem istry sodium, serum 137 mmol/L 817-864 5395/11/01 potassium, serum 3.7 mmol/L 3.5-5.2 chloride, serum 100 mmol/L 98-107 carbon dioxide, venous blood 31.8 mmol/L 21.0-32 .0 blood glucose 98 mg/dL 65-110 calcium, serum 8.6 mg/dL 8.5-10.1 urea nitrogen, blood 23 mg/dL 7-18 creatinine, serum 1.50 mg/dL 0.60-1.30 calcium, serum 8.7 mg/dL 8.5-10.1 urea nitrogen, blood 11 mg/dL 7-18 creatinine, serum 1.10 mg/dL 0.60-1.30 sodium, serum 136 mmol/L 035-080 9278/05/02 potassium, serum 4.1 mmol/L 3.5-5.2 chloride, serum 99 mmol/L 98-107 carbon dioxide, venous blood 30.7 mmol/L 21.0-32 .0 blood glucose 79 mg/dL 65-110 Lab Report: BMP - Chemistry sodium, serum [...] 11 .6-14.8 platelet count 22 10^3/MM^3 10*3/mm3 168-430 6255/11/19 leukocyte count, blood 10.4 10^3/MM^3 10*3/mm3 4.6-10.2 [...] Verified By Repeat Analysis 10^3/mm ^3 10*3/mm3 212-527 0485/12/10 leukocyte count, blood 7.8 10^3/MM^3 10*3/mm3 4.6-10.2 [...] 11 .6-14.8 platelet count 102 10^3/MM^3 10*3/mm3 133-629 5621/01/08 leukocyte count, blood 9.0 10^3/MM^3 10*3/mm3 4.6-10.2 [...] Panel - Chemistry sodium, serum 142 mmol/L 442-459 8746/01/03 potassium, serum 3.4 mmol/L 3.5-5.2 chloride, serum [...] 0.50 mg/dL 0.00-1.00 sodium, serum 139 mmol/L 918-038 7579/12/03 potassium, serum 3.7 mmol/L 3.5-5.2 chloride, serum [...] 0.40 mg/dL 0.00-1.00 sodium, serum 139 mmol/L 529-697 1640/10/17 potassium, serum 3.1 mmol/L 3.5-5.2 chloride, serum [...] 0.30 mg/dL 0.00-1.00 sodium, serum 139 mmol/L 402-027 3077/01/21 potassium, serum 3.4 mmol/L 3.5-5.2 chloride, serum [...] 0.40 mg/dL 0.00-1.00 sodium, serum 138 mmol/L 054-396 5076/01/28 potassium, serum 3.2 mmol/L 3.5-5.2 chloride, serum [...] 0.40 mg/dL 0.00-1.00 sodium, serum 140 mmol/L 849-900 1180/02/04 potassium, serum 3.6 mmol/L 3.5-5.2 chloride, serum [...] 0.70 mg/dL 0.00-1.00 sodium, serum 140 mmol/L 525-758 6491/01/06 potassium, serum 3.4 mmol/L 3.5-5.2 chloride, serum [...] 0.40 mg/dL 0.00-1.00 sodium, serum 136 mmol/L 542-384 6895/04/03 potassium, serum 3.7 mmol/L 3.5-5.2 chloride, serum [...] 0.40 mg/dL 0.00-1.00 sodium, serum 136 mmol/L 025-619 8781/02/11 potassium, serum 3.1 mmol/L 3.5-5.2 chloride, serum [...] 0.50 mg/dL 0.00-1.00 sodium, serum 139 mmol/L 295-898 5126/02/18 potassium, serum 3.6 mmol/L 3.5-5.2 chloride, serum 98 mmol/L 98-107 carbon dioxide, venous blood 33.2 mmol/L 21.0-32 .0 blood glucose 93 mg/dL 65-110 urea nitrogen, blood 13 mg/dL 7-18 creatinine, serum 1.00 mg/dL 0.60-1.30 alanine aminotransferase (SGPT), serum 12 U/L 12- aspartate aminotransferase (SGOT), serum 16 U/L 15-37 alkaline phosphatase, serum 97 U/L 50-136 calcium, serum 8.6 mg/dL 8.5-10.1 bilirubin, serum, total 0.50 mg/dL 0.00-1.00 calcium, serum 9.8 mg/dL 8.5-10.1 bilirubin, serum, total 0.40 mg/dL 0.00-1.00 sodium, serum 138 mmol/L 122-810 6152/08/14 potassium, serum 4.0 mmol/L 3.5-5.2 chloride, serum [...] 11 .6-14.8 platelet count 193 10^3/MM^3 10*3/mm3 863-856 8662/02/18 erythrocyte (RBC) count 2.83 10^6/MM^3 10*6/mm3 4.04-5.4 8 lymphocytes as percent of blood leukocytes 17.8 % 20.5-51.1 monocytes as percent of blood leukocytes 8.3 % 1.7-9.3 neutrophils as percent of blood leukocytes 72.1 % 42.2-75.2 leukocyte count, blood 4.0 10^3/MM^3 10*3/mm3 4.6-10.2 leukocyte count, blood 5.6 10^3/MM^3 10*3/mm3 4.6-10.2 hematocrit, blood 26.1 % 36.0-46.0 mean corpuscular volume, RBC 106 fL 80-97 mean corpuscular hemoglobin, RBC 35.4 pg 27. 0-31.2 mean corpuscular hemoglobin concentration, RBC 33.3 G/DL % 31.8-35.4 red blood cell distribution width 15.4 % 11 .6-14.8 platelet count 246 10^3/MM^3 10*3/mm3 954-575 7520/02/18 hemoglobin, blood 9.3 g/dL 12.0-16.0 hematocrit, blood 28.4 % 36.0-46.0 mean corpuscular volume, RBC 100 fL 80-97 mean corpuscular hemoglobin, RBC 32.8 pg 27. 0-31.2 mean corpuscular hemoglobin concentration, RBC 32.7 G/DL % 31.8-35.4 red blood cell distribution width 21.5 % 11 .6-14.8 platelet count 134 10^3/MM^3 10*3/mm3 204-926 3688/04/03 neutrophils as percent of blood leukocytes 66.6 % 42.2-75.2 monocytes as percent of blood leukocytes 9.5 % 1.7-9.3 lymphocytes as percent of blood leukocytes 21.8 % 20.5-51.1 erythrocyte (RBC) count 2.46 10^6/MM^3 10*6/mm3 4.04-5.4 8 hemoglobin, blood 8.7 g/dL 12.0-16.0 hemoglobin, blood 12.0 g/dL 12.0-16.0 hematocrit, blood 36.2 % 36.0-46.0 mean corpuscular volume, RBC 87 fL 80-97 mean corpuscular hemoglobin, RBC 28.7 pg 27. 0-31.2 mean corpuscular hemoglobin concentration, RBC 33.1 G/DL % 31.8-35.4 red blood cell distribution width 16.3 % 11 .6-14.8 platelet count 232 10^3/MM^3 10*3/mm3 847-323 9822/02/11 leukocyte count, blood 4.8 10^3/MM^3 10*3/mm3 4.6-10.2 [...] 11 .6-14.8 platelet count 102 10^3/MM^3 10*3/mm3 592-228 5294/02/04 leukocyte count, blood 3.6 10^3/MM^3 10*3/mm3 4.6-10.2 [...] 11 .6-14.8 platelet count 70 10^3/MM^3 10*3/mm3 053-055 8513/01/28 leukocyte count, blood 4.2 10^3/MM^3 10*3/mm3 4.6-10.2 [...] 11 .6-14.8 platelet count 73 10^3/MM^3 10*3/mm3 481-393 7468/01/21 leukocyte count, blood 4.9 10^3/MM^3 10*3/mm3 4.6-10.2 [...] .6-14.8 platelet count 38 recounted 10^3/mm^3 10*3/mm3 258-099 6322/10/17 erythrocyte (RBC) count 4.18 10^6/MM^3 10*6/mm3 4.04-5.4 8 lymphocytes as percent of blood leukocytes 21.3 % 20.5-51.1 monocytes as percent of blood leukocytes 10.4 % 1.7-9.3 neutrophils as percent of blood leukocytes 64.3 % 42.2-75.2 leukocyte count, blood 12.0 10^3/MM^3 10*3/mm3 4.6-10.2 leukocyte count, blood 8.2 [...] 11 .6-14.8 platelet count 98 10^3/MM^3 10*3/mm3 709-943 3062/01/06 leukocyte count, blood 7.6 10^3/MM^3 10*3/mm3 4.6-10.2 [...] 11 .6-14.8 platelet count 132 10^3/MM^3 10*3/mm3 078-429 4296/01/03 leukocyte count, blood 8.1 10^3/MM^3 10*3/mm3 4.6-10.2 [...] Diff/Morphology - Chemistry sodium, serum 141 mmol/L 403-576 7034/01/14 potassium, serum 3.9 mmol/L 3.5-5.2 chloride, serum [...] 0.50 mg/dL 0.00-1.00 sodium, serum 140 mmol/L 957-167 1654/12/17 potassium, serum 3.3 mmol/L 3.5-5.2 chloride, serum [...] 0.40 mg/dL 0.00-1.00 sodium, serum 138 mmol/L 907-825 6527/12/24 potassium, serum 3.7 mmol/L 3.5-5.2 chloride, serum [...] 0.50 mg/dL 0.00-1.00 sodium, serum 141 mmol/L 543-391 8372/11/25 potassium, serum 3.9 mmol/L 3.5-5.2 chloride, serum [...] 0.50 mg/dL 0.00-1.00 sodium, serum 128 mmol/L 303-718 7570/10/29 potassium, serum 2.6 mmol/L 3.5-5.2 chloride, serum [...] 0.50 mg/dL 0.00-1.00 sodium, serum 137 mmol/L 323-081 7147/11/12 potassium, serum 3.2 mmol/L 3.5-5.2 chloride, serum [...] serum, total 0.40 mg/dL 0.00-1.00 potassium, serum 3.0 mmol/L 3.5-5.2 [...] 0.50 mg/dL 0.00-1.00 sodium, serum 138 mmol/L 661-104 5653/11/05 potassium, serum 3.9 mmol/L 3.5-5.2 chloride, serum [...] 0.40 mg/dL 0.00-1.00 sodium, serum 135 mmol/L 136-145 [...] 11 .6-14.8 platelet count 157 10^3/MM^3 10*3/mm3 840-229 7391/11/05 leukocyte count, blood 16.4 10^3/MM^3 10*3/mm3 4.6-10.2 [...] 11 .6-14.8 platelet count 215 10^3/MM^3 10*3/mm3 790-199 5236/10/29 leukocyte count, blood 26.3 10^3/MM^3 10*3/mm3 4.6-10.2 [...] 11 .6-14.8 platelet count 268 10^3/MM^3 10*3/mm3 740-338 0426/10/22 leukocyte count, blood 14.7 10^3/MM^3 10*3/mm3 4.6-10.2 [...] 11 .6-14.8 platelet count 428 10^3/MM^3 10*3/mm3 992-661 9867/11/25 leukocyte count, blood 21.1 10^3/MM^3 10*3/mm3 4.6-10.2 [...] 11 .6-14.8 platelet count 46 10^3/MM^3 10*3/mm3 498-902 2610/12/24 leukocyte count, blood 14.0 10^3/MM^3 10*3/mm3 4.6-10.2 [...] 11 .6-14.8 platelet count 66 10^3/MM^3 10*3/mm3 722-289 9033/01/14 leukocyte count, blood 6.2 10^3/MM^3 10*3/mm3 4.6-10.2 [...] 11 .6-14.8 platelet count 22 10^3/MM^3 10*3/mm3 209-261 9394/12/17 leukocyte count, blood 18.6 10^3/MM^3 10*3/mm3 4.6-10.2 [...] ng/mL carcinoembryonic antigen 0.9 ng/mL carcinoembryonic antigen 0.7 ng/mL Lab Report: cmp - Chemistry sodium, serum 142 mmol/L potassium, serum 4.0 mmol/L blood glucose 115 mg/dL creatinine, serum 1.24 mg/dL Lab Report: Comp. Metabolic Panel - Chem istry sodium, serum 141 mmol/L 845-501 9970/11/19 potassium, serum 3.9 mmol/L 3.5-5.2 chloride, serum [...] 0.50 mg/dL 0.00-1.00 sodium, serum 142 mmol/L 888-163 2679/12/10 potassium, serum 3.9 mmol/L 3.5-5.2 chloride, serum [...] Diff/Morphology - Chemistry sodium, serum 142 mmol/L 843-021 7117/12/31 potassium, serum 3.6 mmol/L 3.5-5.2 chloride, serum [...] Panel - Chemistry cholesterol, serum 209 mg/dL 295-833 7320/09/11 triglyceride, serum, fasting 113 mg/dL 30-200 HDL cholesterol, serum 50 mg/dL 32-96 LDL cholesterol, serum 136 mg/dL 0-130 Encounters Code Encounter Date Provider Facility CPT-04147 Level 4 Est. Patient 20:04:51 CDT Hope cohn MD PhD [facility] CPT-14989 Level 3 New Patient 01:46:11 [employer] Hope landers MD PhD [facility] Procedures Code Procedure Name Date Entry Date Standard Desc ription CPT-G0008 Administration of Influenza Virus Vaccine 13:36:47 CDT CPT-60724 Fluzone High-Dose Intramuscular Suspension 11/15 13:36:47 CDT CPT-J0897 Prolia 60 mg 08:50:41 CDT CPT-90828 Abx/Therapy Injection 08:50:41 CDT CPT-23326 Bone Density 12:06:12 CDT CPT-43328 Bone Density 08:54:40 CDT CPT-OV Office Visit 15:37:02 CDT CPT-79601 Postop F/U Visit 15:47:49 CDT CPT-83168 Postop F/U Visit 15:21:02 CDT CPT-TCMH Transitional Care Mgmt-High 07:52:27 CDT 20 20/06/01 CPT-38981 Venipuncture Draw Fee 13:51:18 CDT CPT-56365 Venipuncture Draw Fee 10:14:55 [employer] CPT-31128 Venipuncture Draw Fee 13:39:45 [employer] CPT-OV Office Visit 15:11:22 [employer] CPT-78021 Venipuncture Draw Fee 09:20:49 [employer] CPT-82455 Venipuncture Draw Fee 16:52:15 [employer] CPT-53135 Venipuncture Draw Fee 10:37:24 [employer] CPT-13082 Venipuncture Draw Fee 08:21:21 [employer] CPT-96353 Venipuncture Draw Fee 08:30:20 [employer] CPT-81880 Venipuncture Draw Fee 14:53:21 [employer] CPT-55790 Venipuncture Draw Fee 09:40:56 [employer] CPT-48205 Venipuncture Draw Fee 10:30:47 [employer] CPT-16258 Venipuncture Draw Fee 10:46:17 [employer] CPT-28726 Venipuncture Draw Fee 11:12:45 [employer] CPT-56328 Venipuncture Draw Fee 09:53:33 [employer] CPT-66400 Venipuncture Draw Fee 11:53:51 [employer] CPT-13957 Venipuncture Draw Fee 10:33:50 [employer] CPT-74108 Venipuncture Draw Fee 10:05:01 [employer] CPT-41750 Venipuncture Draw Fee 14:32:52 [employer] CPT-08461 Venipuncture Draw Fee 09:46:13 [employer] CPT-94228 Venipuncture Draw Fee 11:34:27 [employer] CPT-31750 Venipuncture Draw Fee 13:17:16 [employer] CPT-66439 Venipuncture Draw Fee 12:05:39 CDT CPT-82804 Venipuncture Draw Fee 12:49:12 CDT CPT-07980 Venipuncture Draw Fee 12:37:18 CDT CPT-96074 Venipuncture Draw Fee 10:57:11 CDT CPT-43959 Venipuncture Draw Fee 13:47:40 CDT CPT-83434 Venipuncture Draw Fee 10:02:17 CDT CPT-12208 TB Tubersol 17:32:32 CDT CPT-OV Office Visit 16:21:53 CDT CPT-OV Office Visit 15:49:22 CDT CPT-OV Office Visit 17:16:31 CDT CPT-OV Office Visit 10:43:31 CDT
--- OUTSIDE RECORDS SUMMARY | 2019-02-09 13:40 | XMS REPORT | Clinical Summary ---
Author Author Renaldo, Florecita Munoz Organization [facility] Address Unknown Phone Unavailable Allergies, Adverse Reactions, [...] cohn MD PhD UNSPECIFIED VENOUS INSUFFICIENCY ICD-459.81 [place] [address] Adam Yates MD ADENOCARCINOMA, ASCENDING COLON [...] mouth every 12 hours prn ONDANSETRON HCL 58618104764 Active Laura Elder Active FLAGYL 500 MG TABS 1 pill by mouth three times daily, for diarrh ea METRONIDAZOLE 15748858057 No Longer Active Hope Benavidez MD PhD Active MAGNESIUM GLUCONATE 250 MG TABS 1 tab daily MAG NESIUM GLUCONATE 82275916352 Active Hope Benavidez MD PhD Active DYAZIDE 37.5-25 MG CAPS 1 qd TRIAMTERENE-HC TZ 97928716313 No Longer Active Hope Benavidez MD PhD Active PROZAC 20 MG CAPS 1 q d FLUOXETINE HCL 30676 924140 No Longer Active Hope Benavidez MD PhD Active INNOPRAN XL 120 MG [id number] Take one by mouth daily PROPRANOLOL HCL SR BEADS 62750013509 Active Hope Benavidez MD PhD Active POTASSIUM CHLORIDE 20 MEQ PACK by mouth twice a day prn POTASSIUM CHLORIDE 67204852788 Active Adam Yates MD Activ e CYCLOBENZAPRINE HCL 10 MG TABS 1 tablet by mouth three times daily as needed for headaches CYCLOBENZAPRINE HCL 16109475489 Active Selena Yates MD Active SIMVASTATIN 40 MG TABS 1 qd SIMVASTATIN 004 76228908 No Longer Active Adam Yates MD Active MELOXICAM 15 MG TABS 1 qd MELOXICAM 7308818 6015 No Longer Active Adam Yates MD Active ATENOLOL 50 MG TABS 1/2 tab q other day ATENOLOL 46214576515 Active Hope Benavidez MD PhD Active OMEPRAZOLE 20 MG CPDR 1 tablet by mouth daily for GERD OMEPRAZOLE 63425010666 Active Hope Benavidez MD PhD Active IMODIUM A-D 2 MG TABS 2 onset at diarrhea and prn. LOPERAMIDE HCL 70972827433 Active Hope Benavidez MD PhD Active PHENADOZ 25 MG SUPP 1 every 4 hrs. PRN PROMETHAZINE HCL 01647724785 Active Hope Benavidez MD PhD Active PROMETHAZINE HCL 25 MG TABS 1 Q. 4 hr. PRN PROMETH AZINE HCL 40439465424 Active Hope Benavidez MD PhD Active EXCEDRIN EXTRA STRENGTH 250-250-65 MG TABS 1-2 q6h PRN headache 201 04/16/21 [id number] 34944443723 Active Hope Benavidez MD PhD Active FLAGYL 500 MG TABS 1 qid METRONIDAZOLE 37709 232562 No Longer Active Adam Yates MD Active LEVAQUIN 750 MG TABS 1 qd LEVOFLOXACIN 5486 0946713 No Longer Active Aadm Yates MD Active ADULT ASPIRIN LOW STRENGTH 81 MG TBDP 1 qd A SPIRIN 83416979523 Active Hope Benavidez MD PhD Active LEVAQUIN 750 MG TABS 1 qd LEVAQUIN 750 MG T ABS 027330 LEVOFLOXACIN Inactive FLAGYL 500 MG TABS 1 qid FLAGYL 500 MG TABS 523400 METRONIDAZOLE Inactive MELOXICAM 15 MG TABS 1 qd MELOXICAM 15 MG T ABS 587090 MELOXICAM Inactive SIMVASTATIN 40 MG TABS 1 qd SIMVASTATIN 40 MG TABS 543056 SIMVASTATIN Inactive PROZAC 20 MG CAPS 1 q d PROZAC 20 MG CAPS 31 0385 FLUOXETINE HCL Inactive DYAZIDE 37.5-25 MG CAPS 1 qd DYAZIDE 37.5 -25 MG CAPS 300169 TRIAMTERENE-HCTZ Inactive FLAGYL 500 MG TABS 1 pill by mouth three times daily, for diarrh ea FLAGYL 500 MG TABS 811909 METRONIDAZOLE Inactive Advance Directives Directive Description Start [...] - Chem istry sodium, serum 137 mmol/L 788-015 1686/11/01 potassium, serum 3.7 mmol/L 3.5-5.2 chloride, serum 100 mmol/L 98-107 carbon dioxide, venous blood 31.8 mmol/L 21.0-32 .0 blood glucose 98 mg/dL 65-110 calcium, serum 8.6 mg/dL 8.5-10.1 urea nitrogen, blood 23 mg/dL 7-18 creatinine, serum 1.50 mg/dL 0.60-1.30 sodium, serum 136 mmol/L 156-709 8360/05/02 potassium, serum 4.1 mmol/L 3.5-5.2 chloride, serum 99 mmol/L 98-107 carbon dioxide, venous blood 30.7 mmol/L 21.0-32 .0 blood glucose 79 mg/dL 65-110 calcium, serum 8.7 mg/dL 8.5-10.1 urea nitrogen, blood 11 mg/dL 7-18 creatinine, serum 1.10 mg/dL 0.60-1.30 Lab Report: [facility] - Chemistry sodium, serum 141 mmol/L [...] 11 .6-14.8 platelet count 133 10^3/MM^3 10*3/mm3 685-871 0126/01/17 leukocyte count, blood 3.1 10^3/MM^3 10*3/mm3 4.6-10.2 [...] 11 .6-14.8 platelet count 22 10^3/MM^3 10*3/mm3 350-523 6166/11/19 leukocyte count, blood 10.4 10^3/MM^3 10*3/mm3 4.6-10.2 [...] Verified By Repeat Analysis 10^3/mm ^3 10*3/mm3 844-747 1239/12/10 leukocyte count, blood 7.8 10^3/MM^3 10*3/mm3 4.6-10.2 [...] Panel - Chemistry sodium, serum 139 mmol/L 865-976 4593/12/03 potassium, serum 3.7 mmol/L 3.5-5.2 chloride, serum [...] 0.40 mg/dL 0.00-1.00 sodium, serum 142 mmol/L 543-337 6239/01/03 potassium, serum 3.4 mmol/L 3.5-5.2 chloride, serum [...] 0.50 mg/dL 0.00-1.00 sodium, serum 137 mmol/L 164-692 5817/10/01 potassium, serum 3.5 mmol/L 3.5-5.2 chloride, serum [...] 0.60 mg/dL 0.00-1.00 sodium, serum 136 mmol/L 986-341 8492/10/08 potassium, serum 3.1 mmol/L 3.5-5.2 chloride, serum [...] 0.60 mg/dL 0.00-1.00 sodium, serum 139 mmol/L 358-833 9534/10/17 potassium, serum 3.1 mmol/L 3.5-5.2 chloride, serum [...] 0.30 mg/dL 0.00-1.00 sodium, serum 140 mmol/L 428-807 4815/01/06 potassium, serum 3.4 mmol/L 3.5-5.2 chloride, serum [...] 0.40 mg/dL 0.00-1.00 sodium, serum 139 mmol/L 504-285 2248/01/21 potassium, serum 3.4 mmol/L 3.5-5.2 chloride, serum [...] 0.40 mg/dL 0.00-1.00 sodium, serum 138 mmol/L 225-530 2995/01/28 potassium, serum 3.2 mmol/L 3.5-5.2 chloride, serum [...] 0.40 mg/dL 0.00-1.00 sodium, serum 140 mmol/L 162-830 6098/02/04 potassium, serum 3.6 mmol/L 3.5-5.2 chloride, serum [...] 0.70 mg/dL 0.00-1.00 sodium, serum 136 mmol/L 839-612 4936/02/11 potassium, serum 3.1 mmol/L 3.5-5.2 chloride, serum [...] 0.50 mg/dL 0.00-1.00 sodium, serum 138 mmol/L 563-656 0116/08/14 potassium, serum 4.0 mmol/L 3.5-5.2 chloride, serum [...] 0.40 mg/dL 0.00-1.00 sodium, serum 136 mmol/L 910-723 2893/04/03 potassium, serum 3.7 mmol/L 3.5-5.2 chloride, serum [...] 0.40 mg/dL 0.00-1.00 sodium, serum 139 mmol/L 476-959 1949/02/18 potassium, serum 3.6 mmol/L 3.5-5.2 chloride, serum [...] 11 .6-14.8 platelet count 246 10^3/MM^3 10*3/mm3 925-576 2186/08/14 leukocyte count, blood 5.8 10^3/MM^3 10*3/mm3 4.6-10.2 [...] 11 .6-14.8 platelet count 193 10^3/MM^3 10*3/mm3 535-837 0047/02/18 leukocyte count, blood 4.0 10^3/MM^3 10*3/mm3 4.6-10.2 [...] 11 .6-14.8 platelet count 134 10^3/MM^3 10*3/mm3 456-921 1186/02/11 leukocyte count, blood 4.8 10^3/MM^3 10*3/mm3 4.6-10.2 [...] 11 .6-14.8 platelet count 102 10^3/MM^3 10*3/mm3 741-311 4409/02/04 leukocyte count, blood 3.6 10^3/MM^3 10*3/mm3 4.6-10.2 [...] 11 .6-14.8 platelet count 70 10^3/MM^3 10*3/mm3 838-870 7332/01/28 leukocyte count, blood 4.2 10^3/MM^3 10*3/mm3 4.6-10.2 [...] 11 .6-14.8 platelet count 73 10^3/MM^3 10*3/mm3 877-329 8696/01/03 leukocyte count, blood 8.1 10^3/MM^3 10*3/mm3 4.6-10.2 [...] 11 .6-14.8 platelet count 96 10^3/MM^3 10*3/mm3 474-216 8962/01/21 leukocyte count, blood 4.9 10^3/MM^3 10*3/mm3 4.6-10.2 [...] .6-14.8 platelet count 38 recounted 10^3/mm^3 10*3/mm3 858-262 2399/10/08 leukocyte count, blood 2.9 10^3/MM^3 10*3/mm3 4.6-10.2 [...] 11 .6-14.8 platelet count 229 10^3/MM^3 10*3/mm3 000-725 3650/10/17 leukocyte count, blood 12.0 10^3/MM^3 10*3/mm3 4.6-10.2 [...] 11 .6-14.8 platelet count 232 10^3/MM^3 10*3/mm3 163-266 3765/10/01 leukocyte count, blood 8.3 10^3/MM^3 10*3/mm3 4.6-10.2 [...] 11 .6-14.8 platelet count 378 10^3/MM^3 10*3/mm3 412-548 6871/01/06 leukocyte count, blood 7.6 10^3/MM^3 10*3/mm3 4.6-10.2 [...] 11 .6-14.8 platelet count 132 10^3/MM^3 10*3/mm3 618-043 6566/12/03 leukocyte count, blood 8.2 10^3/MM^3 10*3/mm3 4.6-10.2 [...] Diff/Morphology - Chemistry sodium, serum 141 mmol/L 999-968 6728/11/25 potassium, serum 3.9 mmol/L 3.5-5.2 chloride, serum [...] 0.50 mg/dL 0.00-1.00 sodium, serum 137 mmol/L 198-121 3850/11/12 potassium, serum 3.2 mmol/L 3.5-5.2 chloride, serum [...] 0.40 mg/dL 0.00-1.00 sodium, serum 140 mmol/L 191-075 7177/12/17 potassium, serum 3.3 mmol/L 3.5-5.2 chloride, serum [...] 0.40 mg/dL 0.00-1.00 sodium, serum 138 mmol/L 497-216 7988/12/24 potassium, serum 3.7 mmol/L 3.5-5.2 chloride, serum [...] 0.50 mg/dL 0.00-1.00 sodium, serum 135 mmol/L 433-227 0045/10/22 potassium, serum 3.0 mmol/L 3.5-5.2 chloride, serum [...] 0.50 mg/dL 0.00-1.00 sodium, serum 138 mmol/L 452-730 4625/11/05 potassium, serum 3.9 mmol/L 3.5-5.2 chloride, serum [...] 0.40 mg/dL 0.00-1.00 sodium, serum 128 mmol/L 180-110 2775/10/29 potassium, serum 2.6 mmol/L 3.5-5.2 chloride, serum [...] 0.50 mg/dL 0.00-1.00 sodium, serum 141 mmol/L 830-256 1916/01/14 potassium, serum 3.9 mmol/L 3.5-5.2 chloride, serum [...] 11 .6-14.8 platelet count 22 10^3/MM^3 10*3/mm3 504-162 2542/10/22 leukocyte count, blood 14.7 10^3/MM^3 10*3/mm3 4.6-10.2 [...] 11 .6-14.8 platelet count 428 10^3/MM^3 10*3/mm3 041-881 9556/11/05 leukocyte count, blood 16.4 10^3/MM^3 10*3/mm3 4.6-10.2 [...] 11 .6-14.8 platelet count 215 10^3/MM^3 10*3/mm3 642-940 1737/11/12 leukocyte count, blood 12.1 10^3/MM^3 10*3/mm3 4.6-10.2 [...] 11 .6-14.8 platelet count 157 10^3/MM^3 10*3/mm3 088-789 8253/10/29 leukocyte count, blood 26.3 10^3/MM^3 10*3/mm3 4.6-10.2 [...] 11 .6-14.8 platelet count 268 10^3/MM^3 10*3/mm3 572-792 9081/12/24 leukocyte count, blood 14.0 10^3/MM^3 10*3/mm3 4.6-10.2 [...] 11 .6-14.8 platelet count 66 10^3/MM^3 10*3/mm3 731-174 7651/11/25 leukocyte count, blood 21.1 10^3/MM^3 10*3/mm3 4.6-10.2 [...] 11 .6-14.8 platelet count 46 10^3/MM^3 10*3/mm3 073-150 1738/12/17 leukocyte count, blood 18.6 10^3/MM^3 10*3/mm3 4.6-10.2 [...] - Chem istry sodium, serum 141 mmol/L 385-151 6922/11/19 potassium, serum 3.9 mmol/L 3.5-5.2 chloride, serum [...] 0.50 mg/dL 0.00-1.00 sodium, serum 142 mmol/L 035-919 1335/12/10 potassium, serum 3.9 mmol/L 3.5-5.2 chloride, serum [...] Diff/Morphology - Chemistry sodium, serum 142 mmol/L 453-386 4451/12/31 potassium, serum 3.6 mmol/L 3.5-5.2 chloride, serum [...] 12.0-16.0 Encounters Code Encounter Date Provider Facility CPT-34784 Level 3 New Patient 01:46:11 [employer] Hope landers MD PhD [facility] Procedures Code Procedure Name Date Entry Date Standard Desc ription CPT-17464 Postop F/U Visit 15:47:49 CDT CPT-30034 Postop F/U Visit 15:21:02 CDT CPT-TCMH Transitional Care Mgmt-High 07:52:27 CDT 20 20/06/01 CPT-09177 Venipuncture Draw Fee 13:51:18 CDT CPT-57854 Venipuncture Draw Fee 10:14:55 [employer] CPT-64552 Venipuncture Draw Fee 13:39:45 [employer] CPT-OV Office Visit 15:11:22 [employer] CPT-50165 Venipuncture Draw Fee 09:20:49 [employer] CPT-83262 Venipuncture Draw Fee 16:52:15 [employer] CPT-06694 Venipuncture Draw Fee 10:37:24 [employer] CPT-58396 Venipuncture Draw Fee 08:21:21 [employer] CPT-07275 Venipuncture Draw Fee 08:30:20 [employer] CPT-96990 Venipuncture Draw Fee 14:53:21 [employer] CPT-41294 Venipuncture Draw Fee 09:40:56 [employer] CPT-72017 Venipuncture Draw Fee 10:30:47 [employer] CPT-18075 Venipuncture Draw Fee 10:46:17 [employer] CPT-92230 Venipuncture Draw Fee 11:12:45 [employer] CPT-16962 Venipuncture Draw Fee 09:53:33 [employer] CPT-42448 Venipuncture Draw Fee 11:53:51 [employer] CPT-06489 Venipuncture Draw Fee 10:33:50 [employer] CPT-35285 Venipuncture Draw Fee 10:05:01 [employer] CPT-19222 Venipuncture Draw Fee 14:32:52 [employer] CPT-42161 Venipuncture Draw Fee 09:46:13 [employer] CPT-17178 Venipuncture Draw Fee 11:34:27 [employer] CPT-55452 Venipuncture Draw Fee 13:17:16 [employer] CPT-83260 Venipuncture Draw Fee 12:05:39 CDT CPT-72132 Venipuncture Draw Fee 12:49:12 CDT CPT-58877 Venipuncture Draw Fee 12:37:18 CDT CPT-25260 Venipuncture Draw Fee 10:57:11 CDT CPT-90825 Venipuncture Draw Fee 13:47:40 CDT CPT-31721 Venipuncture Draw Fee 10:02:17 CDT CPT-51048 TB Tubersol 17:32:32 CDT CPT-OV Office Visit 16:21:53 CDT CPT-OV Office Visit 15:49:22 CDT CPT-OV Office Visit 17:16:31 CDT CPT-OV Office Visit 10:43:31 CDT
--- OUTSIDE RECORDS SUMMARY | 2019-02-09 13:40 | XMS REPORT | Clinical Summary ---
Author Author Renaldo, Florecita Munoz Organization [facility] Address Unknown Phone Unavailable Allergies, [...] (age-related) (natural) V49.8 1 Active Citlaly Roland [facility] Asymptomatic postmenopausal status (age- related) (natural) Diarrhea 787.91 Active Hope Benavidez MD PhD Diarrhea Osteoporosis 733.00 Active Hope Benavidez MD PhD Osteoporosis, unspecified ABDOMINAL PAIN, RIGHT LOWER QUADRANT ICD-789.03 Inactive Kina Joshua APRN ADENOCARCINOMA, COLON, CECUM ICD-153.4 Dick Yates MD ABDOMINAL PAIN, GENERALIZED ICD-789.07 Inactive Hope Benavidez MD PhD FEVER UNSPECIFIED ICD-780.60 Inactive Hope cohn MD PhD UNSPECIFIED VENOUS INSUFFICIENCY ICD-459.81 [place] ctive Adam Yates MD ADENOCARCINOMA, ASCENDING COLON ICD-153.6 Inac tive Hope Benavidez MD PhD Hyperkalemia ICD-276.7 Inactive Hope Benavidez MD PhD Health maintenance exam ICD-V70.0 Bam Yates MD Aftercare following surgery of the teeth,oral cavity a nd digestive system, NEC ICD-V58.75 Inactive Adam Yates MD Colon cancer ICD-153.9 Inactive Adam luna MD Medication List Medication Instructions Start Date Stop Date Generic Name [facility] Status Provider Patient Instruction PROLIA 60 MG/ML SOLN 1 shot every 6 months for osteoprosis DENOSUMAB 51536696191 Active Hope Benavidez MD PhD Active CALCIUM + D + K 750-500-40 MG-UNT-MCG TABS 1 tab by mouth tw ice daily CALCIUM-VITAMIN D-VITAMIN K 68397060503 Active Hope landers MD PhD Active DAILY VALUE MULTIVITAMIN TABS 1 tab by mouth twice daily MULTIPLE VITAMIN 86410109861 Active Hope Benavidez MD PhD Active FISH OIL 306 MG CAPS 1 tab by mouth three times daily OMEGA-3 FATTY ACIDS 37171525216 Active Hope Benavidez MD PhD Active LUTEIN 10 MG TABS 1 tab daily LUTEIN 32357652167 Act cash Hope Benavidez MD PhD Active FLORANEX PACK 1 pack three times daily, for bowel health LACTOBACILLUS 78457636752 Active Hope Benavidez MD PhD Active LOMOTIL 2.5-0.025 MG TABS 1 tab by mouth prn DIPHENOXYLATE-ATROPINE 03173322129 Active Hope Benavidez MD PhD Active TRIAMTERENE-HCTZ 37.5-25 MG TABS 1 tab by mouth daily TRIAMTERENE-HCTZ 47130296710 Active Hope Benavidez MD PhD Acti ve IRON 325 (65 FE) MG TABS 1 tab daily FERROUS SULF ATE 45377060763 Active Hope Benavidez MD PhD Active MAGNESIUM GLUCONATE 250 MG TABS 1 tab tid MAGN ESIUM GLUCONATE 85199077330 Active Adam Yates MD Active ATENOLOL 50 MG TABS 1/2 tab q other day m-w-f ATE NOLOL 45844604293 Active Adam Yates MD Active PROPRANOLOL HCL 80 MG TABS 1 tab tue. and thur. PROPRANOLOL HCL 60527198653 Active Adam Yates MD Active CYCLOBENZAPRINE HCL 10 MG TABS 1 tablet by mouth three times daily as needed for headaches CYCLOBENZAPRINE HCL 00640628632 No Longe r Active Adam Yates MD Active OMEPRAZOLE 20 MG CPDR 1 tablet by mouth daily for GERD OMEPRAZOLE 41086007952 No Longer Active Adam Yates MD A ctive ZOFRAN 8 MG TABS 1 tab by mouth every 12 hours prn 201 05/16/09 ONDANSETRON HCL 70623884886 No Longer Active Adam Yates MD Active PHENADOZ 25 MG SUPP 1 every 4 hrs. PRN PROMETHA ZINE HCL 19756788631 No Longer Active Adam Yates MD Active POTASSIUM CHLORIDE 20 MEQ PACK by mouth twice a day prn POTASSIUM CHLORIDE 99142141347 No Longer Active Adam Yates MD Active PROMETHAZINE HCL 25 MG TABS 1 Q. 4 hr. PRN PROM ETHAZINE HCL 82628286306 No Longer Active Adam Yates MD Active INNOPRAN XL 120 MG [id number] Take one by mouth daily 2 PROPRANOLOL HCL SR BEADS 11537076986 No Longer Active Adam aYtes MD A ctive FLAGYL 500 MG TABS 1 pill by mouth three times daily, for diarrh ea METRONIDAZOLE 03276453482 No Longer Active Hope Benavidez MD PhD Active DYAZIDE 37.5-25 MG CAPS 1 qd TRIAMTERENE-HC TZ 84862444056 No Longer Active Hope Benavidez MD PhD Active PROZAC 20 MG CAPS 1 q d FLUOXETINE HCL 71138 454342 No Longer Active Hope Benavidez MD PhD Active SIMVASTATIN 40 MG TABS 1 qd SIMVASTATIN 004 87965686 No Longer Active Adam Yates MD Active MELOXICAM 15 MG TABS 1 qd MELOXICAM 6552555 7380 No Longer Active Adam Yates MD Active IMODIUM A-D 2 MG TABS 2 onset at diarrhea and prn. LOPERAMIDE HCL 30217328844 Active Hope Benavidez MD PhD Active EXCEDRIN EXTRA STRENGTH 250-250-65 MG TABS 1-2 q6h PRN headache 201 04/16/21 [id number]-GVAULCNT 51597781062 Active Hope Benavidez MD PhD Active FLAGYL 500 MG TABS 1 qid METRONIDAZOLE 75546 834335 No Longer Active Adam Yates MD Active LEVAQUIN 750 MG TABS 1 qd LEVOFLOXACIN 5486 2365205 No Longer Active Adam Yates MD Active ADULT ASPIRIN LOW STRENGTH 81 MG TBDP 1 qd A SPIRIN 28595174754 Active Hope Benavidez MD PhD Active LEVAQUIN 750 MG TABS 1 qd LEVAQUIN 750 MG T ABS 231633 LEVOFLOXACIN Inactive FLAGYL 500 MG TABS 1 qid FLAGYL 500 MG TABS 796974 METRONIDAZOLE Inactive MELOXICAM 15 MG TABS 1 qd MELOXICAM 15 MG T ABS 490463 MELOXICAM Inactive SIMVASTATIN 40 MG TABS 1 qd SIMVASTATIN 40 MG TABS 597635 SIMVASTATIN Inactive PROZAC 20 MG CAPS 1 q d PROZAC 20 MG CAPS 31 0385 FLUOXETINE HCL Inactive DYAZIDE 37.5-25 MG CAPS 1 qd DYAZIDE 37.5 -25 MG CAPS 912251 TRIAMTERENE-HCTZ Inactive INNOPRAN XL 120 MG [id number] Take one by mouth daily 2 INNOPRAN XL 120 MG [id number] PROPRANOLOL HCL SR BEADS Inactive PROMETHAZINE HCL 25 MG TABS 1 Q. 4 hr. PRN PROMETHAZINE HCL 25 MG TABS 799127 PROMETHAZINE HCL Inactive POTASSIUM CHLORIDE 20 MEQ PACK by mouth twice a day prn POTASSIUM CHLORIDE 20 MEQ PACK 988520 POTASSIUM CHLORIDE Inactive PHENADOZ 25 MG SUPP 1 every 4 hrs. PRN PHENADOZ 2 5 MG SUPP 189679 PROMETHAZINE HCL Inactive ZOFRAN 8 MG TABS 1 tab by mouth every 12 hours prn 201 05/16/09 ZOFRAN 8 MG TABS 540661 ONDANSETRON HCL Inactive OMEPRAZOLE 20 MG CPDR 1 tablet by mouth daily for GERD OMEPRAZOLE 20 MG CPDR 694274 OMEPRAZOLE Inactive CYCLOBENZAPRINE HCL 10 MG TABS 1 tablet by mouth three times daily as needed for headaches CYCLOBENZAPRINE HCL 10 MG TABS 001282 CYCLOBENZAPRINE HCL Inactive FLAGYL 500 MG TABS 1 pill by mouth three times daily, for diarrh ea FLAGYL 500 MG TABS 429551 METRONIDAZOLE Inactive Advance Directives Directive Description Start [...] - Chem istry sodium, serum 137 mmol/L 483-664 4607/11/01 potassium, serum 3.7 mmol/L 3.5-5.2 chloride, serum 100 mmol/L 98-107 carbon dioxide, venous blood 31.8 mmol/L 21.0-32 .0 blood glucose 98 mg/dL 65-110 calcium, serum 8.6 mg/dL 8.5-10.1 urea nitrogen, blood 23 mg/dL 7-18 creatinine, serum 1.50 mg/dL 0.60-1.30 sodium, serum 136 mmol/L 853-334 7951/05/02 potassium, serum 4.1 mmol/L 3.5-5.2 chloride, serum 99 mmol/L 98-107 carbon dioxide, venous blood 30.7 mmol/L 21.0-32 .0 blood glucose 79 mg/dL 65-110 calcium, serum 8.7 mg/dL 8.5-10.1 urea nitrogen, blood 11 mg/dL 7-18 creatinine, serum 1.10 mg/dL 0.60-1.30 Lab Report: [facility] - Chemistry sodium, serum 141 mmol/L [...] 11 .6-14.8 platelet count 133 10^3/MM^3 10*3/mm3 692-000 1975/01/17 leukocyte count, blood 3.1 10^3/MM^3 10*3/mm3 4.6-10.2 [...] 11 .6-14.8 platelet count 22 10^3/MM^3 10*3/mm3 202-829 9264/11/19 leukocyte count, blood 10.4 10^3/MM^3 10*3/mm3 4.6-10.2 [...] Verified By Repeat Analysis 10^3/mm ^3 10*3/mm3 563-223 9772/12/10 leukocyte count, blood 7.8 10^3/MM^3 10*3/mm3 4.6-10.2 [...] Panel - Chemistry sodium, serum 139 mmol/L 201-150 8706/12/03 potassium, serum 3.7 mmol/L 3.5-5.2 chloride, serum [...] 0.40 mg/dL 0.00-1.00 sodium, serum 142 mmol/L 318-257 7841/01/03 potassium, serum 3.4 mmol/L 3.5-5.2 chloride, serum [...] 0.50 mg/dL 0.00-1.00 sodium, serum 137 mmol/L 341-167 9938/10/01 potassium, serum 3.5 mmol/L 3.5-5.2 chloride, serum [...] 0.60 mg/dL 0.00-1.00 sodium, serum 136 mmol/L 118-338 7978/10/08 potassium, serum 3.1 mmol/L 3.5-5.2 chloride, serum [...] 0.60 mg/dL 0.00-1.00 sodium, serum 139 mmol/L 791-016 0264/10/17 potassium, serum 3.1 mmol/L 3.5-5.2 chloride, serum [...] 0.30 mg/dL 0.00-1.00 sodium, serum 140 mmol/L 756-761 8267/01/06 potassium, serum 3.4 mmol/L 3.5-5.2 chloride, serum [...] 0.40 mg/dL 0.00-1.00 sodium, serum 139 mmol/L 183-126 3173/01/21 potassium, serum 3.4 mmol/L 3.5-5.2 chloride, serum [...] 0.40 mg/dL 0.00-1.00 sodium, serum 138 mmol/L 985-867 7302/01/28 potassium, serum 3.2 mmol/L 3.5-5.2 chloride, serum [...] 0.40 mg/dL 0.00-1.00 sodium, serum 140 mmol/L 647-490 6892/02/04 potassium, serum 3.6 mmol/L 3.5-5.2 chloride, serum [...] 0.70 mg/dL 0.00-1.00 sodium, serum 136 mmol/L 916-590 8376/02/11 potassium, serum 3.1 mmol/L 3.5-5.2 chloride, serum [...] 0.50 mg/dL 0.00-1.00 sodium, serum 138 mmol/L 655-728 0574/08/14 potassium, serum 4.0 mmol/L 3.5-5.2 chloride, serum [...] 0.40 mg/dL 0.00-1.00 sodium, serum 136 mmol/L 784-107 1378/04/03 potassium, serum 3.7 mmol/L 3.5-5.2 chloride, serum [...] 0.40 mg/dL 0.00-1.00 sodium, serum 139 mmol/L 598-696 2045/02/18 potassium, serum 3.6 mmol/L 3.5-5.2 chloride, serum [...] 11 .6-14.8 platelet count 246 10^3/MM^3 10*3/mm3 286-233 7155/08/14 leukocyte count, blood 5.8 10^3/MM^3 10*3/mm3 4.6-10.2 [...] 11 .6-14.8 platelet count 193 10^3/MM^3 10*3/mm3 511-375 5340/02/18 leukocyte count, blood 4.0 10^3/MM^3 10*3/mm3 4.6-10.2 [...] 11 .6-14.8 platelet count 134 10^3/MM^3 10*3/mm3 318-910 5176/02/11 leukocyte count, blood 4.8 10^3/MM^3 10*3/mm3 4.6-10.2 [...] 11 .6-14.8 platelet count 102 10^3/MM^3 10*3/mm3 594-926 3517/02/04 leukocyte count, blood 3.6 10^3/MM^3 10*3/mm3 4.6-10.2 [...] 11 .6-14.8 platelet count 70 10^3/MM^3 10*3/mm3 619-848 6393/01/28 leukocyte count, blood 4.2 10^3/MM^3 10*3/mm3 4.6-10.2 [...] 11 .6-14.8 platelet count 73 10^3/MM^3 10*3/mm3 266-217 7985/01/03 leukocyte count, blood 8.1 10^3/MM^3 10*3/mm3 4.6-10.2 [...] 11 .6-14.8 platelet count 96 10^3/MM^3 10*3/mm3 414-624 6474/01/21 leukocyte count, blood 4.9 10^3/MM^3 10*3/mm3 4.6-10.2 [...] .6-14.8 platelet count 38 recounted 10^3/mm^3 10*3/mm3 568-964 5195/10/08 leukocyte count, blood 2.9 10^3/MM^3 10*3/mm3 4.6-10.2 [...] 11 .6-14.8 platelet count 229 10^3/MM^3 10*3/mm3 863-822 3570/10/17 leukocyte count, blood 12.0 10^3/MM^3 10*3/mm3 4.6-10.2 [...] 11 .6-14.8 platelet count 232 10^3/MM^3 10*3/mm3 971-467 7835/10/01 leukocyte count, blood 8.3 10^3/MM^3 10*3/mm3 [...] 11 .6-14.8 platelet count 378 10^3/MM^3 10*3/mm3 787-253 8089/01/06 leukocyte count, blood 7.6 10^3/MM^3 10*3/mm3 4.6-10.2 [...] 11 .6-14.8 platelet count 132 10^3/MM^3 10*3/mm3 274-601 7318/12/03 leukocyte count, blood 8.2 10^3/MM^3 10*3/mm3 4.6-10.2 [...] Diff/Morphology - Chemistry sodium, serum 141 mmol/L 186-387 0019/11/25 potassium, serum 3.9 mmol/L 3.5-5.2 chloride, serum [...] 0.50 mg/dL 0.00-1.00 sodium, serum 137 mmol/L 617-771 6934/11/12 potassium, serum 3.2 mmol/L 3.5-5.2 chloride, serum [...] 0.40 mg/dL 0.00-1.00 sodium, serum 140 mmol/L 360-411 5922/12/17 potassium, serum 3.3 mmol/L 3.5-5.2 chloride, serum [...] 0.40 mg/dL 0.00-1.00 sodium, serum 138 mmol/L 221-624 5332/12/24 potassium, serum 3.7 mmol/L 3.5-5.2 chloride, serum [...] 0.50 mg/dL 0.00-1.00 sodium, serum 135 mmol/L 606-288 1319/10/22 potassium, serum 3.0 mmol/L 3.5-5.2 chloride, serum [...] 0.50 mg/dL 0.00-1.00 sodium, serum 138 mmol/L 376-171 6397/11/05 potassium, serum 3.9 mmol/L 3.5-5.2 chloride, serum [...] 0.40 mg/dL 0.00-1.00 sodium, serum 128 mmol/L 082-175 1774/10/29 potassium, serum 2.6 mmol/L 3.5-5.2 chloride, serum [...] 0.50 mg/dL 0.00-1.00 sodium, serum 141 mmol/L 799-376 8332/01/14 potassium, serum 3.9 mmol/L 3.5-5.2 chloride, serum [...] 11 .6-14.8 platelet count 22 10^3/MM^3 10*3/mm3 786-455 5825/10/22 leukocyte count, blood 14.7 10^3/MM^3 10*3/mm3 4.6-10.2 [...] 11 .6-14.8 platelet count 428 10^3/MM^3 10*3/mm3 269-061 5689/11/05 leukocyte count, blood 16.4 10^3/MM^3 10*3/mm3 4.6-10.2 [...] 11 .6-14.8 platelet count 215 10^3/MM^3 10*3/mm3 582-947 5271/11/12 leukocyte count, blood 12.1 10^3/MM^3 10*3/mm3 4.6-10.2 [...] 11 .6-14.8 platelet count 157 10^3/MM^3 10*3/mm3 258-835 8090/10/29 leukocyte count, blood 26.3 10^3/MM^3 10*3/mm3 4.6-10.2 [...] 11 .6-14.8 platelet count 268 10^3/MM^3 10*3/mm3 046-812 5694/12/24 leukocyte count, blood 14.0 10^3/MM^3 10*3/mm3 4.6-10.2 [...] 11 .6-14.8 platelet count 66 10^3/MM^3 10*3/mm3 091-769 8596/11/25 leukocyte count, blood 21.1 10^3/MM^3 10*3/mm3 4.6-10.2 [...] 11 .6-14.8 platelet count 46 10^3/MM^3 10*3/mm3 563-230 1321/12/17 leukocyte count, blood 18.6 10^3/MM^3 10*3/mm3 4.6-10.2 [...] - Chem istry sodium, serum 141 mmol/L 202-329 6130/11/19 potassium, serum 3.9 mmol/L 3.5-5.2 chloride, serum [...] 0.50 mg/dL 0.00-1.00 sodium, serum 142 mmol/L 466-361 7944/12/10 potassium, serum 3.9 mmol/L 3.5-5.2 chloride, serum [...] Diff/Morphology - Chemistry sodium, serum 142 mmol/L 976-374 4740/12/31 potassium, serum 3.6 mmol/L 3.5-5.2 chloride, serum [...] Panel - Chemistry cholesterol, serum 209 mg/dL 154-956 4782/09/11 triglyceride, serum, fasting 113 mg/dL 30-200 HDL cholesterol, serum 50 mg/dL 32-96 LDL cholesterol, serum 136 mg/dL 0-130 Encounters Code Encounter Date Provider Facility CPT-31360 Level 4 Est. 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 Hope landers MD PhD [facility] Procedures Code Procedure Name Date Entry Date Standard Desc ription CPT-62631 Bone Density 12:06:12 CDT CPT-73828 Bone Density 08:54:40 CDT CPT-OV Office Visit 15:37:02 CDT CPT-79043 Postop F/U Visit 15:47:49 CDT CPT-64762 Postop F/U Visit 15:21:02 CDT CPT-TCMH Transitional Care Mgmt-High 07:52:27 CDT 20 20/06/01 CPT-42055 Venipuncture Draw Fee 13:51:18 CDT CPT-00965 Venipuncture Draw Fee 10:14:55 [employer] CPT-10172 Venipuncture Draw Fee 13:39:45 [employer] CPT-OV Office Visit 15:11:22 [employer]OUS[employer]GY [employer] CPT-86792 Venipuncture Draw Fee 09:20:49 [employer] CPT-04819 Venipuncture Draw Fee 16:52:15 [employer] CPT-01363 Venipuncture Draw Fee 10:37:24 [employer] CPT-59121 Venipuncture Draw Fee 08:21:21 [employer] CPT-12212 Venipuncture Draw Fee 08:30:20 [employer] CPT-42844 Venipuncture Draw Fee 14:53:21 [employer] CPT-02114 Venipuncture Draw Fee 09:40:56 [employer] CPT-69538 Venipuncture Draw Fee 10:30:47 [employer] CPT-93326 Venipuncture Draw Fee 10:46:17 [employer] CPT-30910 Venipuncture Draw Fee 11:12:45 [employer] CPT-80666 Venipuncture Draw Fee 09:53:33 [employer] CPT-91661 Venipuncture Draw Fee 11:53:51 [employer] CPT-40591 Venipuncture Draw Fee 10:33:50 [employer] CPT-57884 Venipuncture Draw Fee 10:05:01 [employer] CPT-10253 Venipuncture Draw Fee 14:32:52 [employer]GY [employer] CPT-68380 Venipuncture Draw Fee 09:46:13 [employer] CPT-64233 Venipuncture Draw Fee 11:34:27 [employer]OUS[employer]ERGY SERVICES CPT-85454 Venipuncture Draw Fee 13:17:16 DIRECT[employer]OUS[employer]ERGY SERVICES CPT-16021 Venipuncture Draw Fee 12:05:39 CDT CPT-62422 Venipuncture Draw Fee 12:49:12 CDT CPT-94719 Venipuncture Draw Fee 12:37:18 CDT CPT-52239 Venipuncture Draw Fee 10:57:11 CDT CPT-55039 Venipuncture Draw Fee 13:47:40 CDT CPT-21960 Venipuncture Draw Fee 10:02:17 CDT CPT-06115 TB Tubersol 17:32:32 CDT CPT-OV Office Visit 16:21:53 CDT CPT-OV Office Visit 15:49:22 CDT CPT-OV Office Visit 17:16:31 CDT CPT-OV Office Visit 10:43:31 CDT
--- OUTSIDE RECORDS SUMMARY | 2019-02-09 13:41 | XMS REPORT | Clinical Summary ---
Author Author Renaldo, Florecita Munoz Organization [facility] Address Unknown Phone Unavailable Allergies, [...] cohn MD PhD UNSPECIFIED VENOUS INSUFFICIENCY ICD-459.81 [place] ctive Adam Yates MD ADENOCARCINOMA, ASCENDING COLON [...] tab tue. and thur. 04/10 PROPRANOLOL HCL 17453444888 No Longer Active Hope Benavidez MD PhD A ctive IRON 325 (65 FE) MG TABS 1 every other day FERROUS SULFATE 55239750343 Active Hope Benavidez MD PhD Active VITAMIN D3 4000 IU 1 tab 3 times daily VITAMIN D3 4000 IU No Longer Active Hope Benavidez MD PhD Active CYANOCOBALAMIN 1000 MCG/ML INJ SOLN 1 injection every 2 weeks 01/09 CYANOCOBALAMIN 85626944643 Active Laura Elder Active BACTRIM DS 800-160 MG TABS 1 pill by mouth twice daily, for UTI SULFAMETHOXAZOLE-TRIMETHOPRIM 57755946784 No Longer Active A attila Benavidez MD PhD Active PROLIA 60 MG/ML SOLN 1 shot every 6 months for osteoprosis DENOSUMAB 69903939414 Active Hope Benavidez MD PhD Active CALCIUM + D + K 750-500-40 MG-UNT-MCG TABS 1 tab by mouth tw ice daily CALCIUM-VITAMIN D-VITAMIN K 52586330074 Active Hope landers MD PhD Active DAILY VALUE MULTIVITAMIN TABS 1 tab by mouth twice daily MULTIPLE VITAMIN 76070113350 Active Hope Benavidez MD PhD Active FISH OIL 306 MG CAPS 1 tab by mouth three times daily OMEGA-3 FATTY ACIDS 84314837915 Active Hope Benavidez MD PhD Active LUTEIN 10 MG TABS 1 tab daily LUTEIN 57870741456 Act cash Hope Benavidez MD PhD Active FLORANEX PACK 1 pack three times daily, for bowel health LACTOBACILLUS 34212939086 Active Hope Benavidez MD PhD Active LOMOTIL 2.5-0.025 MG TABS 1 tab by mouth prn DIPHENOXYLATE-ATROPINE 98821743101 Active Hope Benavidez MD PhD Active TRIAMTERENE-HCTZ 37.5-25 MG TABS 1 tab by mouth daily TRIAMTERENE-HCTZ 10868549227 Active Hope Benavidez MD PhD Acti ve MAGNESIUM GLUCONATE 250 MG TABS 1 tab tid MAGN ESIUM GLUCONATE 65743323040 Active Adam Yates MD Active ATENOLOL 50 MG TABS 1/2 tab q other day m-w-f ATE NOLOL 49502171639 Active Hope Benavidez MD PhD Active CYCLOBENZAPRINE HCL 10 MG TABS 1 tablet by mouth three times daily as needed for headaches CYCLOBENZAPRINE HCL 88045063674 No Longe r Active Adam Yates MD Active OMEPRAZOLE 20 MG CPDR 1 tablet by mouth daily for GERD OMEPRAZOLE 16553862203 No Longer Active Adam Yates MD A ctive ZOFRAN 8 MG TABS 1 tab by mouth every 12 hours prn 201 05/16/09 ONDANSETRON HCL 29930782260 No Longer Active Adam Yates MD Active PHENADOZ 25 MG SUPP 1 every 4 hrs. PRN PROMETHA ZINE HCL 08956187258 No Longer Active Adam Yates MD Active POTASSIUM CHLORIDE 20 MEQ PACK by mouth twice a day prn POTASSIUM CHLORIDE 39386982451 No Longer Active Adam Yates MD Active PROMETHAZINE HCL 25 MG TABS 1 Q. 4 hr. PRN PROM ETHAZINE HCL 22206873403 No Longer Active Adam Yates MD Active INNOPRAN XL 120 MG [id number] Take one by mouth daily 2 PROPRANOLOL HCL SR BEADS 68702157769 No Longer Active Adam Yates MD A ctive FLAGYL 500 MG TABS 1 pill by mouth three times daily, for diarrh ea METRONIDAZOLE 91525796408 No Longer Active Hope Benavidez MD PhD Active DYAZIDE 37.5-25 MG CAPS 1 qd TRIAMTERENE-HC TZ 85228700602 No Longer Active Hope Benavidez MD PhD Active PROZAC 20 MG CAPS 1 q d FLUOXETINE HCL 48894 395501 No Longer Active Hope Benavidez MD PhD Active SIMVASTATIN 40 MG TABS 1 qd SIMVASTATIN 004 67964182 No Longer Active Adam Yates MD Active MELOXICAM 15 MG TABS 1 qd MELOXICAM 4552640 1422 No Longer Active Adam Yates MD Active IMODIUM A-D 2 MG TABS 2 onset at diarrhea and prn. LOPERAMIDE HCL 35164424033 Active Hope Benavidez MD PhD Active EXCEDRIN EXTRA STRENGTH 250-250-65 MG TABS 1-2 q6h PRN headache 201 04/16/21 [id number] 15954028784 Active Hope Benavidez MD PhD Active FLAGYL 500 MG TABS 1 qid METRONIDAZOLE 90501 162065 No Longer Active Adam Yates MD Active LEVAQUIN 750 MG TABS 1 qd LEVOFLOXACIN 5486 5802089 No Longer Active Adam Yates MD Active ADULT ASPIRIN LOW STRENGTH 81 MG TBDP 1 qd A SPIRIN 93475315516 Active Hope Benavidez MD PhD Active LEVAQUIN 750 MG TABS 1 qd LEVAQUIN 750 MG T ABS 544522 LEVOFLOXACIN Inactive FLAGYL 500 MG TABS 1 qid FLAGYL 500 MG TABS 306519 METRONIDAZOLE Inactive MELOXICAM 15 MG TABS 1 qd MELOXICAM 15 MG T ABS 526869 MELOXICAM Inactive SIMVASTATIN 40 MG TABS 1 qd SIMVASTATIN 40 MG TABS 458134 SIMVASTATIN Inactive PROZAC 20 MG CAPS 1 q d PROZAC 20 MG CAPS 31 0385 FLUOXETINE HCL Inactive DYAZIDE 37.5-25 MG CAPS 1 qd DYAZIDE 37.5 -25 MG CAPS 056543 TRIAMTERENE-HCTZ Inactive INNOPRAN XL 120 MG [id number] Take one by mouth daily 2 INNOPRAN XL 120 MG [id number] PROPRANOLOL HCL SR BEADS Inactive PROMETHAZINE HCL 25 MG TABS 1 Q. 4 hr. PRN PROMETHAZINE HCL 25 MG TABS 910841 PROMETHAZINE HCL Inactive POTASSIUM CHLORIDE 20 MEQ PACK by mouth twice a day prn POTASSIUM CHLORIDE 20 MEQ PACK 912795 POTASSIUM CHLORIDE Inactive PHENADOZ 25 MG SUPP 1 every 4 hrs. PRN PHENADOZ 2 5 MG SUPP 274089 PROMETHAZINE HCL Inactive ZOFRAN 8 MG TABS 1 tab by mouth every 12 hours prn 201 05/16/09 ZOFRAN 8 MG TABS 388707 ONDANSETRON HCL Inactive OMEPRAZOLE 20 MG CPDR 1 tablet by mouth daily for GERD OMEPRAZOLE 20 MG CPDR 999255 OMEPRAZOLE Inactive CYCLOBENZAPRINE HCL 10 MG TABS 1 tablet by mouth three times daily as needed for headaches CYCLOBENZAPRINE HCL 10 MG TABS 862531 CYCLOBENZAPRINE HCL Inactive VITAMIN D3 4000 IU 1 tab 3 times daily VITAMIN D3 4000 IU Inactive PROPRANOLOL HCL 80 MG TABS 1 tab tue. and thur. 04/10 PROPRANOLOL HCL 80 MG TABS 219547 PROPRANOLOL HCL Inactive FLAGYL 500 MG TABS 1 pill by mouth three times daily, for diarrh ea FLAGYL 500 MG TABS 680607 METRONIDAZOLE Inactive BACTRIM DS 800-160 MG TABS [...] Range Description Chart Maintenance: labs added to [employer] et - Chemistry magnesium, serum 2.0 mg/dL Chart Maintenance: Outside labs entered on [employer] - Chemistry sodium, serum 139 mmol/L potassium, serum 3.9 mmol/L blood glucose 85 mg/dL creatinine, serum 1.26 mg/dL aspartate aminotransferase (SGOT), serum 33 U/L alanine aminotransferase (SGPT), serum 44 U/L alkaline phosphatase, serum 127 U/L Chart Maintenance: Outside labs entered on [employer] - Hematology leukocyte count, blood 4.6 10*3/mm3 hemoglobin, blood 13.6 g/dL platelet count 162 10*3/mm3 Lab Report: Basic Metabolic Panel - Chem istry sodium, serum 136 mmol/L 950-866 3464/05/02 potassium, serum 4.1 mmol/L 3.5-5.2 chloride, serum [...] mg/dL Lab Report: CBC W/ DIFF, [facility], AN AEROBIC CX - Chemistry sodium, serum 137 mmol/L potassium, serum 3.8 mmol/L blood glucose 79 mg/dL creatinine, serum 1.02 mg/dL magnesium, serum 1.2 mg/dL Lab Report: CBC W/ DIFF, [facility], AN AEROBIC CX - Hematology leukocyte count, blood 8.7 10*3/mm3 hemoglobin, blood 10.8 g/dL platelet count 319 10*3/mm3 Lab Report: CBC W/DIFF, Comp. Metabolic Panel - Chemistry sodium, serum 138 mmol/L 692-806 7857/08/14 potassium, serum 4.0 mmol/L 3.5-5.2 chloride, serum [...] 0.40 mg/dL 0.00-1.00 sodium, serum 136 mmol/L 581-045 6562/04/03 potassium, serum 3.7 mmol/L 3.5-5.2 chloride, serum [...] 0.40 mg/dL 0.00-1.00 sodium, serum 145 mmol/L 765-319 0395/02/02 potassium, serum 4.2 mmol/L 3.5-5.2 chloride, serum [...] 11 .6-14.8 platelet count 155 10^3/MM^3 10*3/mm3 854-583 6469/04/03 leukocyte count, blood 5.6 10^3/MM^3 10*3/mm3 4.6-10.2 [...] 11 .6-14.8 platelet count 246 10^3/MM^3 10*3/mm3 645-244 3601/08/14 leukocyte count, blood 5.8 10^3/MM^3 10*3/mm3 4.6-10.2 [...] Panel - Chemistry cholesterol, serum 209 mg/dL 647-518 9436/09/11 triglyceride, serum, fasting 113 mg/dL 30-200 HDL [...] semiquantitative 7.0 5.0-8.5 Lab Report: VITAMIN D, 25-HYDROXY/01386, MAGNESIUM/622 - Chemistry vitamin D 25-hydroxy, serum 41 ng/mL 30-100 Encounters Code Encounter Date Provider Facility CPT-31754 Level 4 Est. Patient 12:08:30 [employer] Hope cohn MD PhD [facility] CPT-25313 Level 4 Est. Patient 19:08:42 [employer] Hope cohn MD PhD [facility] CPT-38769 Level 4 Est. Patient 20:04:51 CDT Hope cohn MD PhD [facility] CPT-81062 Level 3 New Patient 01:46:11 [employer] Hope landers MD PhD [facility] Procedures Code Procedure Name Date Entry Date Standard Desc ription CPT-J3420 Vitamin B12 1000mcg (Cyanocobalamin) 09:26:20 [employer] CPT-89953 Abx/Therapy Injection 09:26:20 [employer] CPT-J3420 Vitamin B12 1000mcg (Cyanocobalamin) 09:44:40 [employer] CPT-79128 Abx/Therapy Injection 09:44:40 [employer] CPT-J3420 Vitamin B12 1000mcg (Cyanocobalamin) 09:15:54 [employer] CPT-45093 Abx/Therapy Injection 09:15:54 [employer] CPT-J3420 Vitamin B12 1000mcg (Cyanocobalamin) 09:46:44 [employer] CPT-01019 Abx/Therapy Injection 09:46:44 [employer] CPT-J3420 Vitamin B12 1000mcg (Cyanocobalamin) 09:47:34 [employer] CPT-21891 Abx/Therapy Injection 09:47:34 [employer] CPT-J3420 Vitamin B12 1000mcg (Cyanocobalamin) 14:35:50 [employer] CPT-J3420 Vitamin B12 1000mcg (Cyanocobalamin) 09:25:05 [employer] CPT-79820 Abx/Therapy Injection 09:25:05 [employer] CPT-G0008 Administration of Influenza Virus Vaccine 13:36:47 CDT CPT-64965 Fluzone High-Dose Intramuscular Suspension 11/15 13:36:47 CDT CPT-J0897 Prolia 60 mg 08:50:41 CDT CPT-52292 Abx/Therapy Injection 08:50:41 CDT CPT-93418 Bone Density 12:06:12 CDT CPT-92313 Bone Density 08:54:40 CDT CPT-OV Office Visit 15:37:02 CDT CPT-27124 Postop F/U Visit 15:47:49 CDT CPT-78249 Postop F/U Visit 15:21:02 CDT CPT-TCMH Transitional Care Mgmt-High 07:52:27 CDT 20 20/06/01 CPT-78595 Venipuncture Draw Fee 13:51:18 CDT CPT-20722 Venipuncture Draw Fee 10:14:55 [employer] CPT-93813 Venipuncture Draw Fee 13:39:45 [employer] CPT-OV Office Visit 15:11:22 [employer] CPT-84483 Venipuncture Draw Fee 09:20:49 [employer] CPT-13556 Venipuncture Draw Fee 16:52:15 [employer] CPT-95437 Venipuncture Draw Fee 10:37:24 [employer] CPT-21691 Venipuncture Draw Fee 08:21:21 [employer] CPT-98928 Venipuncture Draw Fee 08:30:20 [employer] CPT-84226 Venipuncture Draw Fee 14:53:21 [employer] CPT-89113 Venipuncture Draw Fee 09:40:56 [employer] CPT-31864 Venipuncture Draw Fee 10:30:47 [employer] CPT-60910 Venipuncture Draw Fee 10:46:17 [employer] CPT-28614 Venipuncture Draw Fee 11:12:45 [employer] CPT-81287 Venipuncture Draw Fee 09:53:33 [employer] CPT-75688 Venipuncture Draw Fee 11:53:51 [employer] CPT-23180 Venipuncture Draw Fee 10:33:50 [employer] CPT-13689 Venipuncture Draw Fee 10:05:01 [employer] CPT-22051 Venipuncture Draw Fee 14:32:52 [employer] CPT-13795 Venipuncture Draw Fee 09:46:13 [employer] CPT-54281 Venipuncture Draw Fee 11:34:27 [employer] CPT-03520 Venipuncture Draw Fee 13:17:16 [employer] CPT-29964 Venipuncture Draw Fee 12:05:39 CDT CPT-95993 Venipuncture Draw Fee 12:49:12 CDT CPT-37538 Venipuncture Draw Fee 12:37:18 CDT CPT-40697 Venipuncture Draw Fee 10:57:11 CDT CPT-03388 Venipuncture Draw Fee 13:47:40 CDT CPT-80102 Venipuncture Draw Fee 10:02:17 CDT CPT-01641 TB Tubersol 17:32:32 CDT CPT-OV Office Visit 16:21:53 CDT CPT-OV Office Visit 15:49:22 CDT CPT-OV Office Visit 17:16:31 CDT CPT-OV Office Visit 10:43:31 CDT
--- OUTSIDE RECORDS SUMMARY | 2019-02-09 13:41 | XMS REPORT | Clinical Summary ---
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.4 Dick Yates MD [...] 1 injection every 2 weeks 01/09 CYANOCOBALAMIN 19863824527 Active Laura Elder Active VITAMIN D3 4000 IU 1 tab 3 times daily VITAMIN D3 400 0 IU Active Hope Benavidez MD PhD Active BACTRIM DS 800-160 MG TABS 1 pill by mouth twice daily, for UTI SULFAMETHOXAZOLE-TRIMETHOPRIM 63407347248 No Longer Active A attila Benavidez MD PhD Active PROLIA 60 MG/ML SOLN 1 shot every 6 months for osteoprosis DENOSUMAB 39964322038 Active Hope Benavidez MD PhD Active CALCIUM + D + K 750-500-40 MG-UNT-MCG TABS 1 tab by mouth tw ice daily CALCIUM-VITAMIN D-VITAMIN K 86541133601 Active Hope landers MD PhD Active DAILY VALUE MULTIVITAMIN TABS 1 tab by mouth twice daily MULTIPLE VITAMIN 36199333721 Active Hope Benavidez MD PhD Active FISH OIL 306 MG CAPS 1 tab by mouth three times daily OMEGA-3 FATTY ACIDS 99522757402 Active Hope Benavidez MD PhD Active LUTEIN 10 MG TABS 1 tab daily LUTEIN 12646343988 Act cash Hope Benavidez MD PhD Active FLORANEX PACK 1 pack three times daily, for bowel health LACTOBACILLUS 69584661987 Active Hope Benavidez MD PhD Active LOMOTIL 2.5-0.025 MG TABS 1 tab by mouth prn DIPHENOXYLATE-ATROPINE 94031532870 Active Hope Benavidez MD PhD Active TRIAMTERENE-HCTZ 37.5-25 MG TABS 1 tab by mouth daily TRIAMTERENE-HCTZ 43767210590 Active Hope Benavidez MD PhD Acti ve IRON 325 (65 FE) MG TABS 1 tab daily FERROUS SULF ATE 82420446731 Active Hope Benavidez MD PhD Active MAGNESIUM GLUCONATE 250 MG TABS 1 tab tid MAGN ESIUM GLUCONATE 90337406043 Active Adam Yates MD Active ATENOLOL 50 MG TABS 1/2 tab q other day m-w-f ATE NOLOL 65694807935 Active Hope Benavidez MD PhD Active PROPRANOLOL HCL 80 MG TABS 1 tab tue. and thur. PROPRANOLOL HCL 10625962871 Active Adam Yates MD Active CYCLOBENZAPRINE HCL 10 MG TABS 1 tablet by mouth three times daily as needed for headaches CYCLOBENZAPRINE HCL 17075611670 No Longe r Active Adam Yates MD Active OMEPRAZOLE 20 MG CPDR 1 tablet by mouth daily for GERD OMEPRAZOLE 32987618482 No Longer Active Adam Yates MD A ctive ZOFRAN 8 MG TABS 1 tab by mouth every 12 hours prn 201 05/16/09 ONDANSETRON HCL 11284365675 No Longer Active Adam Yates MD Active PHENADOZ 25 MG SUPP 1 every 4 hrs. PRN PROMETHA ZINE HCL 77525117837 No Longer Active Adam Yates MD Active POTASSIUM CHLORIDE 20 MEQ PACK by mouth twice a day prn POTASSIUM CHLORIDE 74749464776 No Longer Active Adam Yates MD Active PROMETHAZINE HCL 25 MG TABS 1 Q. 4 hr. PRN PROM ETHAZINE HCL 21372759114 No Longer Active Adam Yates MD Active INNOPRAN XL 120 MG [id number] Take one by mouth daily 2 PROPRANOLOL HCL SR BEADS 59621676265 No Longer Active Adam Yates MD A ctive FLAGYL 500 MG TABS 1 pill by mouth three times daily, for diarrh ea METRONIDAZOLE 35489469648 No Longer Active Hope eBnavidez MD PhD Active DYAZIDE 37.5-25 MG CAPS 1 qd TRIAMTERENE-HC TZ 98554923369 No Longer Active Hope Benavidez MD PhD Active PROZAC 20 MG CAPS 1 q d FLUOXETINE HCL 61832 290488 No Longer Active Hope Benavidez MD PhD Active SIMVASTATIN 40 MG TABS 1 qd SIMVASTATIN 004 86688365 No Longer Active Adam Yates MD Active MELOXICAM 15 MG TABS 1 qd MELOXICAM 0119254 5266 No Longer Active Adam Yates MD Active IMODIUM A-D 2 MG TABS 2 onset at diarrhea and prn. LOPERAMIDE HCL 39536222336 Active Hope Benavidez MD PhD Active EXCEDRIN EXTRA STRENGTH 250-250-65 MG TABS 1-2 q6h PRN headache 201 04/16/21 [id number] 23630211303 Active Hope Benavidez MD PhD Active FLAGYL 500 MG TABS 1 qid METRONIDAZOLE 60311 269233 No Longer Active Adam Yates MD Active LEVAQUIN 750 MG TABS 1 qd LEVOFLOXACIN 5486 8112484 No Longer Active Adam Yates MD Active ADULT ASPIRIN LOW STRENGTH 81 MG TBDP 1 qd A SPIRIN 32059874841 Active Hope Benavidez MD PhD Active LEVAQUIN 750 MG TABS 1 qd LEVAQUIN 750 MG T ABS 905962 LEVOFLOXACIN Inactive FLAGYL 500 MG TABS 1 qid FLAGYL 500 MG TABS 352339 METRONIDAZOLE Inactive MELOXICAM 15 MG TABS 1 qd MELOXICAM 15 MG T ABS 139614 MELOXICAM Inactive SIMVASTATIN 40 MG TABS 1 qd SIMVASTATIN 40 MG TABS 098058 SIMVASTATIN Inactive PROZAC 20 MG CAPS 1 q d PROZAC 20 MG CAPS 31 0385 FLUOXETINE HCL Inactive DYAZIDE 37.5-25 MG CAPS 1 qd DYAZIDE 37.5 -25 MG CAPS 933189 TRIAMTERENE-HCTZ Inactive INNOPRAN XL 120 MG [id number] Take one by mouth daily 2 INNOPRAN XL 120 MG [id number] PROPRANOLOL HCL SR BEADS Inactive PROMETHAZINE HCL 25 MG TABS 1 Q. 4 hr. PRN PROMETHAZINE HCL 25 MG TABS 838919 PROMETHAZINE HCL Inactive POTASSIUM CHLORIDE 20 MEQ PACK by mouth twice a day prn POTASSIUM CHLORIDE 20 MEQ PACK 861204 POTASSIUM CHLORIDE Inactive PHENADOZ 25 MG SUPP 1 every 4 hrs. PRN PHENADOZ 2 5 MG SUPP 955052 PROMETHAZINE HCL Inactive ZOFRAN 8 MG TABS 1 tab by mouth every 12 hours prn 201 05/16/09 ZOFRAN 8 MG TABS 381816 ONDANSETRON HCL Inactive OMEPRAZOLE 20 MG CPDR 1 tablet by mouth daily for GERD OMEPRAZOLE 20 MG CPDR 764794 OMEPRAZOLE Inactive CYCLOBENZAPRINE HCL 10 MG TABS 1 tablet by mouth three times daily as needed for headaches CYCLOBENZAPRINE HCL 10 MG TABS 122891 CYCLOBENZAPRINE HCL Inactive FLAGYL 500 MG TABS 1 pill by mouth three times daily, for diarrh ea FLAGYL 500 MG TABS 924207 METRONIDAZOLE Inactive BACTRIM DS 800-160 MG TABS [...] U/L Chart Maintenance: Outside labs entered on [employer] - Hematology leukocyte count, blood 4.6 10*3/mm3 hemoglobin, blood 13.6 g/dL platelet count 162 10*3/mm3 Lab Report: Basic Metabolic Panel - Chem istry sodium, serum 136 mmol/L 527-708 9547/05/02 potassium, serum 4.1 mmol/L 3.5-5.2 chloride, serum 99 mmol/L 98-107 carbon dioxide, venous blood 30.7 mmol/L 21.0-32 .0 blood glucose 79 mg/dL 65-110 calcium, serum 8.7 mg/dL 8.5-10.1 urea nitrogen, blood 11 mg/dL 7-18 creatinine, serum 1.10 mg/dL 0.60-1.30 Lab Report: BMP - Chemistry potassium, serum 4.2 mmol/L blood glucose 66 mg/dL creatinine, serum 1.16 mg/dL sodium, serum 141 mmol/L Lab Report: CBC W/ DIFF, BMP, VANCOT, AN AEROBIC CX - Chemistry sodium, serum 137 mmol/L potassium, serum 3.8 mmol/L blood glucose 79 mg/dL creatinine, serum 1.02 mg/dL magnesium, serum 1.2 mg/dL Lab Report: CBC W/ DIFF, BMP, VANCOT, AN AEROBIC CX - Hematology hemoglobin, blood 10.8 g/dL leukocyte count, blood 8.7 10*3/mm3 platelet count 319 10*3/mm3 Lab Report: CBC W/DIFF, Comp. Metabolic Panel - Chemistry sodium, serum 136 mmol/L 609-142 6522/04/03 potassium, serum 3.7 mmol/L 3.5-5.2 chloride, serum [...] 0.40 mg/dL 0.00-1.00 sodium, serum 138 mmol/L 617-522 7826/08/14 potassium, serum 4.0 mmol/L 3.5-5.2 chloride, serum [...] 0.40 mg/dL 0.00-1.00 sodium, serum 145 mmol/L 256-101 7077/02/02 potassium, serum 4.2 mmol/L 3.5-5.2 chloride, serum [...] 11 .6-14.8 platelet count 155 10^3/MM^3 10*3/mm3 558-939 5146/08/14 lymphocytes as percent of blood leukocytes 35.8 % 20.5-51.1 erythrocyte (RBC) count 3.79 10^6/MM^3 10*6/mm3 4.04-5.4 8 leukocyte count, blood 5.8 10^3/MM^3 10*3/mm3 4.6-10.2 neutrophils as percent of blood leukocytes 52.7 % 42.2-75.2 hemoglobin, blood 13.4 g/dL 12.0-16.0 monocytes as percent of blood leukocytes 7.5 % 1.7-9.3 hematocrit, blood 39.5 % 36.0-46.0 mean corpuscular volume, RBC 104 fL 80-97 mean corpuscular hemoglobin, RBC 35.5 pg 27. 0-31.2 mean corpuscular hemoglobin concentration, RBC 34.0 G/DL % 31.8-35.4 red blood cell distribution width 12.5 % 11 .6-14.8 platelet count 193 10^3/MM^3 10*3/mm3 562-787 9364/04/03 hemoglobin, blood 8.7 g/dL 12.0-16.0 hematocrit, blood 26.1 % 36.0-46.0 mean corpuscular volume, RBC 106 fL 80-97 mean corpuscular hemoglobin, RBC 35.4 pg 27. 0-31.2 mean corpuscular hemoglobin concentration, RBC 33.3 G/DL % 31.8-35.4 red blood cell distribution width 15.4 % 11 .6-14.8 platelet count 246 10^3/MM^3 10*3/mm3 229-892 6886/04/03 erythrocyte (RBC) count 2.46 10^6/MM^3 10*6/mm3 4.04-5.4 [...] 12.0-16.0 Lab Report: Lipid Panel - Chemistry triglyceride, serum, fasting 113 mg/dL 30-200 HDL cholesterol, serum 50 mg/dL 32-96 LDL cholesterol, serum 136 mg/dL 0-130 cholesterol, serum 209 mg/dL 130-200 Lab Report: UADIP W/MICRO, AUTO - Chemis try RBC, urine, dipstick Trace Negative protein, total urine random Trace mg/dL Negative Lab Report: UADIP W/MICRO, AUTO - Urinal ysis glucose, urine, semiquantitative Negative Neg ative ketones, urine, by test strip Negative Negati ve bilirubin, urine Negative Negative urobilinogen, urine, semiquantitative (dipstick) 0.2 Normal leukocyte esterase, urine, by dipstick 1+ Negative nitrite, urine, semiquantitative Negative Neg ative urine color Yellow Colorless;Lightyellow;St raw;Yellow appearance, urine SlCloudy Clear specific gravity, urine 1.020 1.000-1.030 pH, urine, semiquantitative 7.0 5.0-8.5 Lab Report: VITAMIN D, 25-HYDROXY/07754, MAGNESIUM/622 - Chemistry vitamin D 25-hydroxy, serum 41 ng/mL 30-100 Encounters Code Encounter Date Provider Facility CPT-91202 Level 4 Est. Patient 19:08:42 [employer] Hope cohn MD PhD [facility] CPT-79638 Level 4 Est. Patient 20:04:51 CDT Hope cohn MD PhD [facility] CPT-69470 Level 3 New Patient 01:46:11 [employer] Hope landers MD PhD [facility] Procedures Code Procedure Name Date Entry Date Standard Desc ription CPT-J3420 Vitamin B12 1000mcg (Cyanocobalamin) 09:26:20 [employer] CPT-74285 Abx/Therapy Injection 09:26:20 [employer] CPT-J3420 Vitamin B12 1000mcg (Cyanocobalamin) 09:44:40 [employer] CPT-91480 Abx/Therapy Injection 09:44:40 [employer] CPT-J3420 Vitamin B12 1000mcg (Cyanocobalamin) 09:15:54 [employer] CPT-11838 Abx/Therapy Injection 09:15:54 [employer] CPT-J3420 Vitamin B12 1000mcg (Cyanocobalamin) 09:46:44 [employer] CPT-83157 Abx/Therapy Injection 09:46:44 [employer] CPT-J3420 Vitamin B12 1000mcg (Cyanocobalamin) 09:47:34 [employer] CPT-59236 Abx/Therapy Injection 09:47:34 [employer] CPT-J3420 Vitamin B12 1000mcg (Cyanocobalamin) 14:35:50 [employer] CPT-J3420 Vitamin B12 1000mcg (Cyanocobalamin) 09:25:05 [employer] CPT-87024 Abx/Therapy Injection 09:25:05 [employer] CPT-G0008 Administration of Influenza Virus Vaccine 13:36:47 CDT CPT-16837 Fluzone High-Dose Intramuscular Suspension 11/15 13:36:47 CDT CPT-J0897 Prolia 60 mg 08:50:41 CDT CPT-62819 Abx/Therapy Injection 08:50:41 CDT CPT-84538 Bone Density 12:06:12 CDT CPT-26686 Bone Density 08:54:40 CDT CPT-OV Office Visit 15:37:02 CDT CPT-36013 Postop F/U Visit 15:47:49 CDT CPT-76265 Postop F/U Visit 15:21:02 CDT CPT-TCMH Transitional Care Mgmt-High 07:52:27 CDT 20 20/06/01 CPT-04751 Venipuncture Draw Fee 13:51:18 CDT CPT-77682 Venipuncture Draw Fee 10:14:55 [employer] CPT-10677 Venipuncture Draw Fee 13:39:45 [employer] CPT-OV Office Visit 15:11:22 [employer] CPT-29212 Venipuncture Draw Fee 09:20:49 [employer] CPT-13250 Venipuncture Draw Fee 16:52:15 [employer] CPT-82679 Venipuncture Draw Fee 10:37:24 [employer] CPT-72265 Venipuncture Draw Fee 08:21:21 [employer] CPT-77368 Venipuncture Draw Fee 08:30:20 [employer] CPT-07950 Venipuncture Draw Fee 14:53:21 [employer] CPT-92932 Venipuncture Draw Fee 09:40:56 [employer] CPT-49898 Venipuncture Draw Fee 10:30:47 [employer] CPT-64194 Venipuncture Draw Fee 10:46:17 [employer] CPT-61543 Venipuncture Draw Fee 11:12:45 [employer] CPT-69559 Venipuncture Draw Fee 09:53:33 [employer] CPT-09976 Venipuncture Draw Fee 11:53:51 [employer] CPT-04231 Venipuncture Draw Fee 10:33:50 [employer] CPT-18324 Venipuncture Draw Fee 10:05:01 [employer] CPT-02144 Venipuncture Draw Fee 14:32:52 [employer] CPT-16556 Venipuncture Draw Fee 09:46:13 [employer] CPT-42012 Venipuncture Draw Fee 11:34:27 [employer] CPT-15139 Venipuncture Draw Fee 13:17:16 [employer] CPT-80737 Venipuncture Draw Fee 12:05:39 CDT CPT-49339 Venipuncture Draw Fee 12:49:12 CDT CPT-47302 Venipuncture Draw Fee 12:37:18 CDT CPT-93177 Venipuncture Draw Fee 10:57:11 CDT CPT-18207 Venipuncture Draw Fee 13:47:40 CDT CPT-83061 Venipuncture Draw Fee 10:02:17 CDT CPT-19010 TB Tubersol 17:32:32 CDT CPT-OV Office Visit 16:21:53 CDT CPT-OV Office Visit 15:49:22 CDT CPT-OV Office Visit 17:16:31 CDT CPT-OV Office Visit 10:43:31 CDT
--- OUTSIDE RECORDS SUMMARY | 2019-02-09 13:41 | XMS REPORT | Clinical Summary ---
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 Dick Yates MD ABDOMINAL PAIN, GENERALIZED ICD-789.07 Inactive Hope Benavidez MD PhD FEVER UNSPECIFIED ICD-780.60 Inactive Hope cohn MD PhD UNSPECIFIED VENOUS INSUFFICIENCY ICD-459.81 [place] ctive Adam Yates MD ADENOCARCINOMA, ASCENDING COLON [...] 1 injection every 2 weeks 01/09 CYANOCOBALAMIN 47746255215 Active Laura Elder Active VITAMIN D3 4000 IU 1 tab 3 times daily VITAMIN D3 400 0 IU Active Hope Benavidez MD PhD Active BACTRIM DS 800-160 MG TABS 1 pill by mouth twice daily, for UTI SULFAMETHOXAZOLE-TRIMETHOPRIM 44111449006 No Longer Active A attila Benavidez MD PhD Active PROLIA 60 MG/ML SOLN 1 shot every 6 months for osteoprosis DENOSUMAB 37310113157 Active Hope Benavidez MD PhD Active CALCIUM + D + K 750-500-40 MG-UNT-MCG TABS 1 tab by mouth tw ice daily CALCIUM-VITAMIN D-VITAMIN K 74823623375 Active Hope landers MD PhD Active DAILY VALUE MULTIVITAMIN TABS 1 tab by mouth twice daily MULTIPLE VITAMIN 22059268661 Active Hope Benavidez MD PhD Active FISH OIL 306 MG CAPS 1 tab by mouth three times daily OMEGA-3 FATTY ACIDS 85031146840 Active Hope Benavidez MD PhD Active LUTEIN 10 MG TABS 1 tab daily LUTEIN 00788751067 Act cash Hope Benavidez MD PhD Active FLORANEX PACK 1 pack three times daily, for bowel health LACTOBACILLUS 84952079172 Active Hope Benavidez MD PhD Active LOMOTIL 2.5-0.025 MG TABS 1 tab by mouth prn DIPHENOXYLATE-ATROPINE 09598061581 Active Hope Benavidez MD PhD Active TRIAMTERENE-HCTZ 37.5-25 MG TABS 1 tab by mouth daily TRIAMTERENE-HCTZ 68579127514 Active Hope Benavidez MD PhD Acti ve IRON 325 (65 FE) MG TABS 1 tab daily FERROUS SULF ATE 10717422940 Active Hope Benavidez MD PhD Active MAGNESIUM GLUCONATE 250 MG TABS 1 tab tid MAGN ESIUM GLUCONATE 42373819953 Active Adam Yates MD Active ATENOLOL 50 MG TABS 1/2 tab q other day m-w-f ATE NOLOL 44000700316 Active Hope Benavidez MD PhD Active PROPRANOLOL HCL 80 MG TABS 1 tab tue. and thur. PROPRANOLOL HCL 90797625945 Active Adam Yates MD Active CYCLOBENZAPRINE HCL 10 MG TABS 1 tablet by mouth three times daily as needed for headaches CYCLOBENZAPRINE HCL 41510146020 No Longe r Active Adam Yates MD Active OMEPRAZOLE 20 MG CPDR 1 tablet by mouth daily for GERD OMEPRAZOLE 11651241595 No Longer Active Adam Yates MD A ctive ZOFRAN 8 MG TABS 1 tab by mouth every 12 hours prn 201 05/16/09 ONDANSETRON HCL 36592495813 No Longer Active Adam Yates MD Active PHENADOZ 25 MG SUPP 1 every 4 hrs. PRN PROMETHA ZINE HCL 81299414647 No Longer Active Adam Yates MD Active POTASSIUM CHLORIDE 20 MEQ PACK by mouth twice a day prn POTASSIUM CHLORIDE 47713891239 No Longer Active Adam Yates MD Active PROMETHAZINE HCL 25 MG TABS 1 Q. 4 hr. PRN PROM ETHAZINE HCL 08209024018 No Longer Active Adam Yates MD Active INNOPRAN XL 120 MG [id number] Take one by mouth daily 2 PROPRANOLOL HCL SR BEADS 82435325549 No Longer Active Adam Yates MD A ctive FLAGYL 500 MG TABS 1 pill by mouth three times daily, for diarrh ea METRONIDAZOLE 18128720662 No Longer Active Hope Benavidez MD PhD Active DYAZIDE 37.5-25 MG CAPS 1 qd TRIAMTERENE-HC TZ 55180752331 No Longer Active Hope Benavidez MD PhD Active PROZAC 20 MG CAPS 1 q d FLUOXETINE HCL 58494 109462 No Longer Active Hope Benavidez MD PhD Active SIMVASTATIN 40 MG TABS 1 qd SIMVASTATIN 004 52136559 No Longer Active Adam Yates MD Active MELOXICAM 15 MG TABS 1 qd MELOXICAM 8853600 5389 No Longer Active Adam Yates MD Active IMODIUM A-D 2 MG TABS 2 onset at diarrhea and prn. LOPERAMIDE HCL 19772024775 Active Hope Benavidez MD PhD Active EXCEDRIN EXTRA STRENGTH 250-250-65 MG TABS 1-2 q6h PRN headache 201 04/16/21 [id number] 91453813304 Active Hope Benavidez MD PhD Active FLAGYL 500 MG TABS 1 qid METRONIDAZOLE 23227 971308 No Longer Active Adam Yates MD Active LEVAQUIN 750 MG TABS 1 qd LEVOFLOXACIN 5486 3462940 No Longer Active Adam Yates MD Active ADULT ASPIRIN LOW STRENGTH 81 MG TBDP 1 qd A SPIRIN 81404680478 Active Hope Benavidez MD PhD Active LEVAQUIN 750 MG TABS 1 qd LEVAQUIN 750 MG T ABS 985854 LEVOFLOXACIN Inactive FLAGYL 500 MG TABS 1 qid FLAGYL 500 MG TABS 629934 METRONIDAZOLE Inactive MELOXICAM 15 MG TABS 1 qd MELOXICAM 15 MG T ABS 363184 MELOXICAM Inactive SIMVASTATIN 40 MG TABS 1 qd SIMVASTATIN 40 MG TABS 118046 SIMVASTATIN Inactive PROZAC 20 MG CAPS 1 q d PROZAC 20 MG CAPS 31 0385 FLUOXETINE HCL Inactive DYAZIDE 37.5-25 MG CAPS 1 qd DYAZIDE 37.5 -25 MG CAPS 478666 TRIAMTERENE-HCTZ Inactive INNOPRAN XL 120 MG [id number] Take one by mouth daily 2 INNOPRAN XL 120 MG [id number] PROPRANOLOL HCL SR BEADS Inactive PROMETHAZINE HCL 25 MG TABS 1 Q. 4 hr. PRN PROMETHAZINE HCL 25 MG TABS 369249 PROMETHAZINE HCL Inactive POTASSIUM CHLORIDE 20 MEQ PACK by mouth twice a day prn POTASSIUM CHLORIDE 20 MEQ PACK 571235 POTASSIUM CHLORIDE Inactive PHENADOZ 25 MG SUPP 1 every 4 hrs. PRN PHENADOZ 2 5 MG SUPP 059946 PROMETHAZINE HCL Inactive ZOFRAN 8 MG TABS 1 tab by mouth every 12 hours prn 201 05/16/09 ZOFRAN 8 MG TABS 438015 ONDANSETRON HCL Inactive OMEPRAZOLE 20 MG CPDR 1 tablet by mouth daily for GERD OMEPRAZOLE 20 MG CPDR 900966 OMEPRAZOLE Inactive CYCLOBENZAPRINE HCL 10 MG TABS 1 tablet by mouth three times daily as needed for headaches CYCLOBENZAPRINE HCL 10 MG TABS 143059 CYCLOBENZAPRINE HCL Inactive FLAGYL 500 MG TABS 1 pill by mouth three times daily, for diarrh ea FLAGYL 500 MG TABS 347756 METRONIDAZOLE Inactive BACTRIM DS 800-160 MG TABS [...] Range Description Chart Maintenance: labs added to [employer] [facility] - Chemistry magnesium, serum 2.0 mg/dL Chart Maintenance: Outside labs entered on [employer] - Chemistry sodium, serum 139 mmol/L potassium, serum 3.9 mmol/L blood glucose 85 mg/dL creatinine, serum 1.26 mg/dL aspartate aminotransferase (SGOT), serum 33 U/L alanine aminotransferase (SGPT), serum 44 U/L alkaline phosphatase, serum 127 U/L Chart Maintenance: Outside labs entered on [employer] - Hematology leukocyte count, blood 4.6 10*3/mm3 hemoglobin, blood 13.6 g/dL platelet count 162 10*3/mm3 Lab Report: Basic Metabolic Panel - Chem istry sodium, serum 136 mmol/L 887-103 5048/05/02 potassium, serum 4.1 mmol/L 3.5-5.2 chloride, serum [...] mg/dL Lab Report: CBC W/ DIFF, [facility], [facility], [facility] CX - Chemistry sodium, serum 137 mmol/L potassium, serum 3.8 mmol/L blood glucose 79 mg/dL creatinine, serum 1.02 mg/dL magnesium, serum 1.2 mg/dL Lab Report: CBC W/ DIFF, [facility], [facility], AN AEROBIC CX - Hematology leukocyte count, blood 8.7 10*3/mm3 hemoglobin, blood 10.8 g/dL platelet count 319 10*3/mm3 Lab Report: CBC W/DIFF, Comp. Metabolic Panel - Chemistry sodium, serum 138 mmol/L 193-039 2857/08/14 potassium, serum 4.0 mmol/L 3.5-5.2 chloride, serum [...] 0.40 mg/dL 0.00-1.00 sodium, serum 140 mmol/L 455-290 2005/02/04 potassium, serum 3.6 mmol/L 3.5-5.2 chloride, serum [...] 0.70 mg/dL 0.00-1.00 sodium, serum 136 mmol/L 869-677 8873/02/11 potassium, serum 3.1 mmol/L 3.5-5.2 chloride, serum [...] 0.50 mg/dL 0.00-1.00 sodium, serum 139 mmol/L 795-160 3612/02/18 potassium, serum 3.6 mmol/L 3.5-5.2 chloride, serum [...] 0.50 mg/dL 0.00-1.00 sodium, serum 136 mmol/L 350-814 0568/04/03 potassium, serum 3.7 mmol/L 3.5-5.2 chloride, serum [...] 0.40 mg/dL 0.00-1.00 sodium, serum 145 mmol/L 145-235 5747/02/02 potassium, serum 4.2 mmol/L 3.5-5.2 chloride, serum [...] 11 .6-14.8 platelet count 155 10^3/MM^3 10*3/mm3 089-975 8092/02/04 leukocyte count, blood 3.6 10^3/MM^3 10*3/mm3 4.6-10.2 [...] 11 .6-14.8 platelet count 70 10^3/MM^3 10*3/mm3 992-677 6785/04/03 leukocyte count, blood 5.6 10^3/MM^3 10*3/mm3 4.6-10.2 [...] 11 .6-14.8 platelet count 246 10^3/MM^3 10*3/mm3 318-435 7504/02/18 leukocyte count, blood 4.0 10^3/MM^3 10*3/mm3 4.6-10.2 [...] 11 .6-14.8 platelet count 134 10^3/MM^3 10*3/mm3 247-115 5621/02/11 leukocyte count, blood 4.8 10^3/MM^3 10*3/mm3 4.6-10.2 [...] 11 .6-14.8 platelet count 102 10^3/MM^3 10*3/mm3 603-868 9047/08/14 leukocyte count, blood 5.8 10^3/MM^3 10*3/mm3 4.6-10.2 [...] Panel - Chemistry cholesterol, serum 209 mg/dL 574-574 6788/09/11 triglyceride, serum, fasting 113 mg/dL 30-200 HDL [...] semiquantitative 7.0 5.0-8.5 Lab Report: VITAMIN D, 25-HYDROXY/94640, MAGNESIUM/622 - Chemistry vitamin D 25-hydroxy, serum 41 ng/mL 30-100 Encounters Code Encounter Date Provider Facility CPT-73971 Level 4 Est. 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 Patient 20:04:51 CDT Hope cohn MD PhD [facility] CPT-90104 Level 3 New Patient 01:46:11 POWER [employer]WORKER Hope landers MD PhD [facility] Procedures Code Procedure Name Date Entry Date Standard Desc ription CPT-J3420 Vitamin B12 1000mcg (Cyanocobalamin) 09:44:40 [employer] CPT-01526 Abx/Therapy Injection 09:44:40 [employer] CPT-J3420 Vitamin B12 1000mcg (Cyanocobalamin) 09:15:54 [employer] CPT-14720 Abx/Therapy Injection 09:15:54 P[employer]WORK[employer] CPT-J3420 Vitamin B12 1000mcg (Cyanocobalamin) 09:46:44 P[employer] CPT-66722 Abx/Therapy Injection 09:46:44 P[employer]WORK[employer] CPT-J3420 Vitamin B12 1000mcg (Cyanocobalamin) 09:47:34 POWER [employer]WORKER CPT-60970 Abx/Therapy Injection 09:47:34 POWER [employer]WORKER CPT-J3420 Vitamin B12 1000mcg (Cyanocobalamin) 14:35:50 P[employer]WORK[employer] CPT-J3420 Vitamin B12 1000mcg (Cyanocobalamin) 09:25:05 [employer] CPT-84695 Abx/Therapy Injection 09:25:05 POWER [employer]WORK[employer] CPT-G0008 Administration of Influenza Virus Vaccine 13:36:47 CDT CPT-13011 Fluzone High-Dose Intramuscular Suspension 11/15 13:36:47 CDT CPT-J0897 Prolia 60 mg 08:50:41 CDT CPT-68401 Abx/Therapy Injection 08:50:41 CDT CPT-18654 Bone Density 12:06:12 CDT CPT-54118 Bone Density 08:54:40 CDT CPT-OV Office Visit 15:37:02 CDT CPT-53980 Postop F/U Visit 15:47:49 CDT CPT-96736 Postop F/U Visit 15:21:02 CDT CPT-[facility] Transitional Care Mgmt-High 07:52:27 CDT 20 20/06/01 CPT-42855 Venipuncture Draw Fee 13:51:18 CDT CPT-74750 Venipuncture Draw Fee 10:14:55 POWER [employer]WORK[employer] CPT-06000 Venipuncture Draw Fee 13:39:45 POWER LINEWORKER CPT-OV Office Visit 15:11:22 POWER LINEWORKER CPT-10889 Venipuncture Draw Fee 09:20:49 POWER LINEWORKER CPT-37761 Venipuncture Draw Fee 16:52:15 POWER [employer]WORKER CPT-29627 Venipuncture Draw Fee 10:37:24 POWER LINEWORKER CPT-24459 Venipuncture Draw Fee 08:21:21 POWER LINEWORKER CPT-46136 Venipuncture Draw Fee 08:30:20 POWER LINEWORKER CPT-19689 Venipuncture Draw Fee 14:53:21 POWER LINEWORKER CPT-38709 Venipuncture Draw Fee 09:40:56 POWER LINEWORKER CPT-16003 Venipuncture Draw Fee 10:30:47 POWER LINEWORKER CPT-74935 Venipuncture Draw Fee 10:46:17 POWER LINEWORKER CPT-70791 Venipuncture Draw Fee 11:12:45 POWER LINEWORKER CPT-03868 Venipuncture Draw Fee 09:53:33 POWER LINEWORKER CPT-17442 Venipuncture Draw Fee 11:53:51 POWER LINEWORKER CPT-09212 Venipuncture Draw Fee 10:33:50 POWER LINEWORKER CPT-18737 Venipuncture Draw Fee 10:05:01 POWER LINEWORKER CPT-35980 Venipuncture Draw Fee 14:32:52 POWER LINEWORKER CPT-74359 Venipuncture Draw Fee 09:46:13 POWER LINEWORKER CPT-66918 Venipuncture Draw Fee 11:34:27 POWER LINEWORKER CPT-48712 Venipuncture Draw Fee 13:17:16 POWER LINEWORKER CPT-24221 Venipuncture Draw Fee 12:05:39 CDT CPT-13649 Venipuncture Draw Fee 12:49:12 CDT CPT-96006 Venipuncture Draw Fee 12:37:18 CDT CPT-66650 Venipuncture Draw Fee 10:57:11 CDT CPT-23026 Venipuncture Draw Fee 13:47:40 CDT CPT-76437 Venipuncture Draw Fee 10:02:17 CDT CPT-51635 TB Tubersol 17:32:32 CDT CPT-OV Office Visit 16:21:53 CDT CPT-OV Office Visit 15:49:22 CDT CPT-OV Office Visit 17:16:31 CDT CPT-OV Office Visit 10:43:31 CDT
--- OUTSIDE RECORDS SUMMARY | 2019-02-09 13:42 | XMS REPORT ---
Author Author [facility] Rivera Organization [facility] Address [address] [id number] Phone [phone] Care Team Providers Care Manager Consumer Insights Name Role Phone OSITO TAVERAS MD PP [phone] Summary purpose TRANSITION OF CARE AUTO GENERATION [...]
--- OUTSIDE RECORDS SUMMARY | 2019-02-09 13:42 | XMS REPORT | Continuity of Care Document ---
Demographics x Preferred Language Unknown Marital Status Unknown Pentecostalism Affiliation Unknown Race Unknown Ethnic Group Unknown Author Organization Unknown Address Unknown Phone Unavailable Allergies Active Description Code Type Severity Reaction Onset Reported/Identified Relationship to Patient Clinical Status Yes No Known Drug Allergies 31010496 ND N/A N/A Yes plastic tape Miscellan eous Allergy N/A N/A Yes Latex Drug Moderate [id number] Yes Tape Drug Moderate rash~[id number] Yes No Known Allergies Drug Allerg y N/A N/A 09/05/2012 Yes No Known Drug Allergies Drug Allergy N/A N/A 09/05/2012 Yes No Known Food Allergies Food Allergy N/A N/A 09/05/2012 Yes latex [id number] Drug Allergy Unknown Hives 12/27/2018 Medications There is no data. Problems Date Dx Coded Attending Type Code Diagnosis Diagnosed By 08/24/2012 Waqas Lopez MD Final 272.4 HYPERLIPIDEMIA NEC NOS 08/24/2012 Waqas Lopez MD Final 275.2 DISORD MAGNESIUM METABOL 08/24/2012 Waaqs Lopez MD Final 401.9 HYPERTENSION NOS 08/24/2012 Waqas Lopez MD Final 560.9 INTESTINAL OBSTR NOS 08/24/2012 Waqas Lopez MD Final 787.91 DIARRHEA 08/24/2012 Waqas Lopez MD Final 997.49 SURG COMP NEC-DIGEST 09/05/2012 Shandra Butts MD Final 153.9 COLON CA NOS 09/05/2012 Shandra Butts MD Final 276.8 HYPOPOTASSEMIA 09/05/2012 Shandra Butts MD Final 280.9 IRON DEF ANEMIA NOS 09/05/2012 Shandra Butts MD Final 567.22 PERITONEAL ABSCESS 09/05/2012 Shandra Butts MD Final 787.91 DIARRHEA 09/05/2012 Shandra Butts MD Admitting 789.09 ABDOMINAL PAIN-SITE NEC 09/05/2012 Shandra Butts MD Final 997.49 SURG COMP NEC-DIGEST 09/05/2012 Nabbout MD, Shandra H External E878.2 ABN RXN-ANASTOM/GRAFT 03/26/2013 D 153.4 RODGER GNANT NEOPLASM CECUM 03/26/2013 D 272.4 HYPE RLIPIDEMIA NEC/NOS 03/26/2013 D 285.9 ANEM IA NOS 03/26/2013 D 401.9 HYPE RTENSION NOS 03/27/2013 D 153.9 RODGER GNANT FILIBERTO COLON NOS 03/27/2013 D 787.02 OSIRIS SEA ALONE 03/27/2013 D 789.00 ABD OMINAL PAIN, UNSPECIF 03/27/2013 D V45.3 INTE STINAL BYPASS STATUS 06/13/2013 OSITO TAVERAS 041.04 Strep Inf NEC/Unss Grp D 06/13/2013 OSITO TAVERAS 041.49 E. COLI INFECT NEC & NOS 06/13/2013 OSITO TAVERAS 275.2 DIS MAGNESIUM METABOLISM 06/13/2013 OSITO TAVERAS 998.59 OTHER POSTOP INFECTION 06/13/2013 OSITO TAVERAS E878.6 ABN REAC-ORGAN REM NEC 06/13/2013 OSITO TAVERAS 041.04 Strep Inf NEC/Unss Grp D 06/13/2013 OSITO TAVERAS 041.49 E. COLI INFECT NEC & NOS 06/13/2013 OSITO TAVERAS 275.2 DIS MAGNESIUM METABOLISM 06/13/2013 OSITO TAVERAS 998.59 OTHER POSTOP INFECTION 06/13/2013 OSITO TAVERAS E878.6 ABN REAC-ORGAN REM NEC 06/15/2013 OSITO TAVERAS 041.04 Strep Inf NEC/Unss Grp D 06/15/2013 OSITO TAVERAS 041.49 E. COLI INFECT NEC & NOS 06/15/2013 OSITO TAVERAS 275.2 DIS MAGNESIUM METABOLISM 06/15/2013 OSITO TAVERAS 998.59 OTHER POSTOP INFECTION 06/15/2013 OSITO TAVERAS E878.6 ABN REAC-ORGAN REM NEC 07/07/2013 OSITO TAVERAS 041.04 Strep Inf NEC/Unss Grp D 07/07/2013 OSITO TAVERAS 041.49 E. COLI INFECT NEC & NOS 07/07/2013 OSITO TAVERAS 275.2 DIS MAGNESIUM METABOLISM 07/07/2013 OSITO TAVERAS 998.59 OTHER POSTOP INFECTION 07/07/2013 OSITO TAVERAS E878.6 ABN REAC-ORGAN REM NEC 10/08/2013 OSITO TAVERAS 041.04 Strep Inf NEC/Unss Grp D 10/08/2013 OSITO TAVERAS 041.49 E. COLI INFECT NEC & NOS 10/08/2013 OSITO TAVERAS 275.2 DIS MAGNESIUM METABOLISM 10/08/2013 OSITO TAVERAS 998.59 OTHER POSTOP INFECTION 10/08/2013 OSITO TAVERAS E878.6 ABN REAC-ORGAN REM NEC 11/08/2013 OSITO TAVERAS 041.04 Strep Inf NEC/Unss Grp D 11/08/2013 OSITO TAVERAS 041.49 E. COLI INFECT NEC & NOS 11/08/2013 OSITO TAVERAS 275.2 DIS MAGNESIUM METABOLISM 11/08/2013 OSITO TAVERAS 998.59 OTHER POSTOP INFECTION 11/08/2013 OSITO TAVERAS E878.6 ABN REAC-ORGAN REM NEC 12/13/2013 LEO PUENTES 153.6 MALIG FILIBERTO ASCEND COLON 12/13/2013 LEO PUENTES 233.0 CA IN SITU BREAST 12/13/2013 LEO PUENTES D 276.8 HYPOPOTASSEMIA 12/13/2013 LEO PUENTES 585.2 CHRON KID DIS STG II 01/07/2014 OSITO TAVERAS 041.04 Strep Inf NEC/Unss Grp D 01/07/2014 OSITO TAVERAS 041.49 E. COLI INFECT NEC & NOS 01/07/2014 OSITO TAVERAS 275.2 DIS MAGNESIUM METABOLISM 01/07/2014 OSITO TAVERAS D 998.59 OTHER POSTOP INFECTION 01/07/2014 OSITO TAVERAS E878.6 ABN REAC-ORGAN REM NEC 12/21/2016 Milan VASQUEZ, Adam R 21 Rash 02/17/2017 Milan VASQUEZ, Adam L72.9 Cyst 05/26/2017 BENJAMÍN VASQUEZ, SHANDRA San Z85.038 Personal history of malignant neoplasm of large intest ine 07/22/2017 Milan VASQUEZ, Adam Z68.23 Body Mass Index 23.0-23.9 Adult 07/25/2017 Adam Dale MD H57.12 Eye pain, left 07/25/2017 Adam Dale MD W19.xxxA Unspecified fall, initial encounter 12/09/2017 Adam Dale MD E83.42 Hypomagnesemia 12/09/2017 Adam Dale MD E87.6 Hypokalemia 12/09/2017 Adam Dale MD N18.2 Chronic kidney disease stage 2 02/23/2018 Adam Dale MD E04.9 Enlarged thyroid 03/15/2018 Adam Dale MD R63.6 Underweight 03/15/2018 Adam Dale MD Z68.1 BMI less than 20 03/30/2018 ADAM DALE MD E04.9 Nontoxic goiter, unspecified 04/14/2018 Adam Dale MD 34 Follicular adenoma, thyroid 04/14/2018 Adam Dale MD Z68.24 BMI 24-24.9 05/17/2018 Adam Dale MD 73 Carcinoma, thyroid gland, papillary, metastatic 05/17/2018 Adam Dale MD Z68.23 BMI 23-23.9 05/29/2018 NABBOUT, SHANDRA H Final C18.2 Malignant neoplasm of ascending colon 05/29/2018 NABBOUT, SHANDRA H Reason For Visi t C73 Malignant neoplasm of thyroid gland 05/29/2018 NABBOUT, SHANDRA H Final E89.0 Postprocedural hypothyroidism 07/31/2018 Lew David Reason C73 Malignant neoplasm of thyroid gland 07/31/2018 Lew David Final I10 Essential (primary) hypertension 08/02/2018 Lew David Reason C73 Malignant neoplasm of thyroid gland 08/02/2018 Lew David Final Z79. 82 senior care (current) use of aspirin 08/02/2018 Lew David Final Z 79.899 Other fpc (current) drug therapy 08/02/2018 Lew David Final Z80. 0 Family history of malignant neoplasm of digestive organs 08/02/2018 Lew David Final Z85. 3 Personal history of malignant neoplasm of breast 08/02/2018 Lew David Final Z90. 49 Acquired absence of other specified parts of digestive tract 08/02/2018 Vipin,Arsenio Final Z 90.710 Acquired absence of both cervix and uterus 08/31/2018 Vipin,Arsenio Reason C73 Malignant neoplasm of thyroid gland 09/10/2018 Vipin,Arsenio Reason C73 Malignant neoplasm of thyroid gland 09/10/2018 Vipin,Arsenio Final E89. 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 0 Family history of malignant neoplasm of digestive organs 10/18/2018 Vipin,Arsenio Final Z80. 8 Family history of malignant neoplasm of other organs or systems 10/18/2018 Vipin,Arsenio Final Z 85.038 Personal history of other malignant neoplasm of large intestine 11/14/2018 SHANDRA BUTTS Reason For Visi t C73 Malignant neoplasm of thyroid gland 12/27/2018 JUAN DPM, TACO Q Ot Z01.818 ENCOUNTER FOR OTHER PREPROCEDURAL EXAMIN 01/10/2019 Milan VASQUEZ, Adam Z01.818 Preoperative examination 01/15/2019 JUAN DPM, TACO Q Ot E78. 5 HYPERLIPIDEMIA, UNSPECIFIED 01/15/2019 JUAN DPM, TACO Q Ot E83. 42 HYPOMAGNESEMIA 01/15/2019 JUAN DPM, TACO Q Ot G62. 9 POLYNEUROPATHY, UNSPECIFIED 01/15/2019 JUAN DPM, TACO Q Ot I10 ESSENTIAL (PRIMARY) HYPERTENSION 01/15/2019 JUAN DPM, TACO Q Ot M17. 10 UNILATERAL PRIMARY OSTEOARTHRITIS, UNSPE 01/15/2019 JUAN DPM, TACO Q Ot M19.019 PRIMARY OSTEOARTHRITIS, UNSPECIFIED SHOU 01/15/2019 JUAN DPM, TACO Q Ot M20. 12 HALLUX VALGUS (ACQUIRED), LEFT FOOT 01/15/2019 JUAN DPM, TACO Q Ot M20. 42 OTHER HAMMER TOE(S) (ACQUIRED), LEFT GILMER 01/15/2019 JUAN DPM, TACO Q Ot M89.372 HYPERTROPHY OF BONE, LEFT ANKLE AND FOOT 01/15/2019 JUAN DPM, TACO Q Ot S93.145A SUBLUXATION OF MTP JOINT OF LEFT LESSER 01/15/2019 JUAN DPM, TACO Q Ot Z79.899 OTHER ALF (CURRENT) DRUG THERAPY 01/15/2019 JUAN DPM, TACO Q Ot Z82. 49 FAMILY HX OF ISCHEM HEART DIS AND OTH DI 01/15/2019 JUAN DPM, TACO Q Ot Z85.038 PERSONAL HISTORY OF MALIGNANT NEOPLASM O 01/15/2019 JUAN DPM, TACO Q Ot Z85. 3 PERSONAL HISTORY OF MALIGNANT NEOPLASM O 01/15/2019 JUAN DPM, TACO Q Ot Z85.850 PERSONAL HISTORY OF MALIGNANT NEOPLASM O 01/15/2019 JUAN DPM, TACO Q Ot Z90. 10 ACQUIRED ABSENCE OF UNSPECIFIED BREAST A 01/15/2019 JUAN DPM, TACO Q Ot Z90. 89 ACQUIRED ABSENCE OF OTHER ORGANS 01/15/2019 JUAN DPM, TACO Q Ot Z91.040 LATEX ALLERGY STATUS 01/17/2019 JUAN DPM, TACO Q Ot E78. 5 HYPERLIPIDEMIA, UNSPECIFIED 01/17/2019 JUAN DPM, TACO Q Ot E83. 42 HYPOMAGNESEMIA 01/17/2019 JUAN DPM, TACO Q Ot G62. 9 POLYNEUROPATHY, UNSPECIFIED 01/17/2019 JUAN DPM, TACO Q Ot I10 ESSENTIAL (PRIMARY) HYPERTENSION 01/17/2019 JUAN DPM, TACO Q Ot M17. 10 UNILATERAL PRIMARY OSTEOARTHRITIS, UNSPE 01/17/2019 JUAN DPM, TACO Q Ot M19.019 PRIMARY OSTEOARTHRITIS, UNSPECIFIED SHOU 01/17/2019 JUAN DPM, TACO Q Ot M20. 12 HALLUX VALGUS (ACQUIRED), LEFT FOOT 01/17/2019 JUAN DPM, TACO Q Ot M20. 42 OTHER HAMMER TOE(S) (ACQUIRED), LEFT GILMER 01/17/2019 JUAN DPM, TACO Q Ot M89.372 HYPERTROPHY OF BONE, LEFT ANKLE AND FOOT 01/17/2019 JUAN DPM, TACO Q Ot S93.145A SUBLUXATION OF MTP JOINT OF LEFT LESSER 01/17/2019 JUAN DPM, TACO Q Ot Z79.899 OTHER ALF (CURRENT) DRUG THERAPY 01/17/2019 JUAN DPM, TACO Q Ot Z82. 49 FAMILY HX OF ISCHEM HEART DIS AND OTH DI 01/17/2019 JUAN DPM, TACO Q Ot Z85.038 PERSONAL HISTORY OF MALIGNANT NEOPLASM O 01/17/2019 JUAN DPM, TACO Q Ot Z85. 3 PERSONAL HISTORY OF MALIGNANT NEOPLASM O 01/17/2019 JUAN DPM, TACO Q Ot Z85.850 PERSONAL HISTORY OF MALIGNANT NEOPLASM O 01/17/2019 JUAN DPM, TACO Q Ot Z90. 10 ACQUIRED ABSENCE OF UNSPECIFIED BREAST A 01/17/2019 JUAN DPM, TACO Q Ot Z90. 89 ACQUIRED ABSENCE OF OTHER ORGANS 01/17/2019 JUAN DPM, TACO Q Ot Z91.040 LATEX ALLERGY STATUS 01/21/2019 JUAN DPM, TACO Q Ot E78. 5 HYPERLIPIDEMIA, UNSPECIFIED 01/21/2019 JUAN DPM, TACO Q Ot E83. 42 HYPOMAGNESEMIA 01/21/2019 JUAN DPM, TACO Q Ot G62. 9 POLYNEUROPATHY, UNSPECIFIED 01/21/2019 JUAN DPM, TACO Q Ot I10 ESSENTIAL (PRIMARY) HYPERTENSION 01/21/2019 JUAN DPM, TACO Q Ot M17. 10 UNILATERAL PRIMARY OSTEOARTHRITIS, UNSPE 01/21/2019 JUAN DPM, TACO Q Ot M19.019 PRIMARY OSTEOARTHRITIS, UNSPECIFIED SHOU 01/21/2019 JUAN DPM, TACO Q Ot M20. 12 HALLUX VALGUS (ACQUIRED), LEFT FOOT 01/21/2019 JUAN DPM, TACO Q Ot M20. 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 49 FAMILY HX OF ISCHEM HEART DIS AND OTH DI 01/21/2019 JUAN DPM, TACO Q Ot Z85.038 PERSONAL HISTORY OF MALIGNANT NEOPLASM O 01/21/2019 JUAN DPM, TACO Q Ot Z85. 3 PERSONAL HISTORY OF MALIGNANT NEOPLASM O 01/21/2019 JUAN DPM, TACO Q Ot Z85.850 PERSONAL HISTORY OF MALIGNANT NEOPLASM O 01/21/2019 JUAN DPM, TACO Q Ot Z90. 10 ACQUIRED ABSENCE OF UNSPECIFIED BREAST A 01/21/2019 JUAN DPM, TACO Q Ot Z90. 89 ACQUIRED ABSENCE OF OTHER ORGANS 01/21/2019 JUAN DPM, TACO Q Ot Z91.040 LATEX ALLERGY STATUS 01/23/2019 JUAN DPM, TACO Q Ot E78. 5 HYPERLIPIDEMIA, UNSPECIFIED 01/23/2019 JUNA DPM, TACO Q Ot E83. 42 HYPOMAGNESEMIA 01/23/2019 JUAN DPM, TACO Q Ot G62. 9 POLYNEUROPATHY, UNSPECIFIED 01/23/2019 JUAN DPM, TACO Q Ot I10 ESSENTIAL (PRIMARY) HYPERTENSION 01/23/2019 JUAN DPM, TACO Q Ot M17. 10 UNILATERAL PRIMARY OSTEOARTHRITIS, UNSPE 01/23/2019 JUAN DPM, TACO Q Ot M19.019 PRIMARY OSTEOARTHRITIS, UNSPECIFIED SHOU 01/23/2019 JUAN DPM, TACO Q Ot M20. 12 HALLUX VALGUS (ACQUIRED), LEFT FOOT 01/23/2019 JUAN DPM, TACO Q Ot M20. 42 OTHER HAMMER TOE(S) (ACQUIRED), LEFT GILMER 01/23/2019 JUAN DPM, TACO Q Ot M89.372 HYPERTROPHY OF BONE, LEFT ANKLE AND FOOT 01/23/2019 JUAN DPM, TACO Q Ot S93.145A SUBLUXATION OF MTP JOINT OF LEFT LESSER 01/23/2019 JUAN DPM, TACO Q Ot Z79.899 OTHER ALF (CURRENT) DRUG THERAPY 01/23/2019 JUAN DPM, TACO Q Ot Z82. 49 FAMILY HX OF ISCHEM HEART DIS AND OTH DI 01/23/2019 JUAN DPM, TACO Q Ot Z85.038 PERSONAL HISTORY OF MALIGNANT NEOPLASM O 01/23/2019 JUAN DPM, TACO Q Ot Z85. 3 PERSONAL HISTORY OF MALIGNANT NEOPLASM O 01/23/2019 JUAN DPTACO Delgado Q Ot Z85.850 PERSONAL HISTORY OF MALIGNANT NEOPLASM O 01/23/2019 JUAN DPTACO Delgado Q Ot Z90. 10 ACQUIRED ABSENCE OF UNSPECIFIED BREAST A 01/23/2019 JUAN DPTACO Delgado Q Ot Z90. 89 ACQUIRED ABSENCE OF OTHER ORGANS 01/23/2019 JUAN DPTACO Delgado Q Ot Z91.040 LATEX ALLERGY STATUS Procedures Code Description Performed By Per formed On 54.91 PERC ABD DRAINAGE Ara VASQUEZ, Jl Mata 09/07/2012 38.93 VENO US CATHETER NEC Jl Bullock MD 09/18/2012 09888 UPPE R GI ENDOSCOPY, BIOPSY 03/26/2013 4516 EGD W ITH CLOSED BIOPSY 03/26/2013 4525 CLOSE D BX LRGE INTESTINE 03/26/2013 73395 COLO NOSCOPY AND BIOPSY 03/26/2013 04337 TISS UE EXAM BY PATHOLOGIST 03/26/2013 87494 SPEC IAL STAINS 03/26/2013 J2250 Inj midazolam hydrochloride 03/26/2013 J7120 Ring ers lactate infusion 03/26/2013 09713 X-RA Y EXAM OF SMALL BOWEL 03/27/2013 44176 DRAW BLOOD OFF VENOUS DEVICE 06/13/2013 02862 ASSA Y OF VANCOMYCIN 06/13/2013 68165 ASSA Y OF MAGNESIUM 06/13/2013 61515 THER /PROPH/DIAG IV INF, INIT 06/13/2013 99979 THER /PROPH/DIAG IV INF ADDON 06/13/2013 38690 THER /DIAG CONCURRENT INF 06/13/2013 J1642 Inj heparin sodium per 10 u 06/13/2013 J3370 VANC OMYCIN HCL INJECTION 06/13/2013 J3475 Inj magnesium sulfate 06/13/2013 J7050 Norm al saline solution infus 06/13/2013 88347 DRAW BLOOD OFF VENOUS DEVICE 06/13/2013 99160 ASSA Y OF VANCOMYCIN 06/13/2013 60935 ASSA Y OF MAGNESIUM 06/13/2013 41643 THER /PROPH/DIAG IV INF, INIT 06/13/2013 21627 THER /PROPH/DIAG IV INF ADDON 06/13/2013 94048 THER /DIAG CONCURRENT INF 06/13/2013 J1642 Inj heparin sodium per 10 u 06/13/2013 J3370 VANC OMYCIN HCL INJECTION 06/13/2013 J3475 Inj magnesium sulfate 06/13/2013 J7050 Norm al saline solution infus 06/13/2013 56416 DRAW BLOOD OFF VENOUS DEVICE 06/15/2013 36324 ASSA Y OF VANCOMYCIN 06/15/2013 88967 ASSA Y OF MAGNESIUM 06/15/2013 51406 THER /PROPH/DIAG IV INF, INIT 06/15/2013 87116 THER /PROPH/DIAG IV INF ADDON 06/15/2013 83452 THER /DIAG CONCURRENT INF 06/15/2013 J1642 Inj heparin sodium per 10 u 06/15/2013 J3370 VANC OMYCIN HCL INJECTION 06/15/2013 J3475 Inj magnesium sulfate 06/15/2013 J7050 Norm al saline solution infus 06/15/2013 57547 DRAW BLOOD OFF VENOUS DEVICE 07/07/2013 23368 ASSA Y OF VANCOMYCIN 07/07/2013 51275 ASSA Y OF MAGNESIUM 07/07/2013 18623 THER /PROPH/DIAG IV INF, INIT 07/07/2013 48587 THER /PROPH/DIAG IV INF ADDON 07/07/2013 32019 THER /DIAG CONCURRENT INF 07/07/2013 J1642 Inj heparin sodium per 10 u 07/07/2013 J3370 VANC OMYCIN HCL INJECTION 07/07/2013 J3475 Inj magnesium sulfate 07/07/2013 J7050 Norm al saline solution infus 07/07/2013 69470 ROUT INE VENIPUNCTURE 12/13/2013 26819 COMP REHEN METABOLIC PANEL 12/13/2013 55879 CARC INOEMBRYONIC ANTIGEN 12/13/2013 07711 ASSA Y OF MAGNESIUM 12/13/2013 64864 ASSA Y OF PHOSPHORUS 12/13/2013 06126 COMP LETE CBC W/AUTO DIFF WBC 12/13/[address] T HORAX W/DYE 05/29/[address] A BDOMEN&PELVIS W/CONTRAST 05/29/2015 Q9967 LOCM 300-399MG/ML IODINE,1ML 05/29/2015 69683 US E XAM OF HEAD AND NECK 07/09/2015 23721 THYR OID IMAGING W/BLOOD FLOW 08/04/2015 A9516 IODI NE I-123 SOD IODIDE HERMILO 08/04/2015 10443 COMP LETE CBC W/AUTO DIFF WBC NABBOUT MD, SHANDRA H 05/26/2017 08992 ROUT INE VENIPUNCTURE ADAM DALE MD 03/30/2018 07653 BIOP SY OF THYROID ADAM DALE MD 03/30/2018 03638 ECHO GUIDE FOR BIOPSY ADAM DALE MD 03/30/2018 16214 COMP LETE CBC W/AUTO DIFF WBC ADAM DALE MD 03/30/2018 28592 PROT HROMBIN TIME ADAM DALE MD 03/30/2018 06190 THRO MBOPLASTIN TIME PARTIAL ADAM DALE MD 03/30/2018 28459 CYTO PATH EVAL FNA REPORT ADAM DALE MD 03/30/2018 37326 TISS UE EXAM BY PATHOLOGIST ADAM DALE MD 03/30/2018 Results Test Result Range CBC WITH DIFF - 05/15/13 00:00 BASO% 0.2 % 0-2 EOS% 1.0 % 0-7.0 HCT 23.3 % 36.9-47.0 HGB 7.6 G/DL 12.0-16.0 LYMPH% 19.2 % 20-40 MCH 33.8 PG 27-31 MCHC 32.6 G/DL 33-37 MCV 103.6 FL 81-99 MONO% 11.5 % 0-10.0 MPV 8.8 FL 7.3-10.4 NEUTRO% 68.1 % 40-70 PLT 176 10^3u 130-400 RBC 2.3 10^6u 4.2-5.4 RDW 15.3 % 11.5-15.5 WBC 6.2 10^3u 4.8-10.8 NEUTRO# 4.2 10^3u 1.5-7.5 LYMPH# 1.2 10^3u 0.9-4.0 MONO# 0.7 10^3u 0-0.8 EOS# 0.1 10^3u 0-0.6 BASO# 0.0 10^3u 0-0.1 CMP - 05/15/13 00:00 ALB 2.4 G/DL 3.5-5 ALP 169 IU/L 32-92 ALT 32 IU/L 12-65 AST 17 IU/L 10-42 BCR 23.0 10-20 BUN 26 MG/DL 7-18 CA 8.8 MG/DL 8.4-10.2 CL 97 MEQ/L 98-107 CO2 31.8 MEQ/L 22-28 CREA 1.13 MG/DL 0.6-1.0 EGFR 48 eGFR >= 60 GLU 102 MG/DL 70-105 K 3.5 MEQ/L 3.5-5.1 NA 135 MEQ/L 134-145 OSMSC 275.1 MOSML 280-300 TBIL 0.4 MG/DL 0.1-1.0 TP 6.7 G/DL 6.0-8.3 Albumin/Globulin Ratio 0.6 0-8 Anion Gap 6.2 8-16 UA - 05/15/13 00:00 PH 6.5 4.5-8.0 SG <= 1.005 1.003-1.035 UABILI NEGATIVE UABLD NEGATIVE UACOLOR YEL UAGLU NEGATIVE UAKET NEGATIVE UALEUK 1+ UANIT POSITIVE UAURO 0.2 0-0.2 CLARITY CL PROTEIN NEGATIVE UA WBC R510 UA RBC NORBC SQUAMOUS EPITHELIAL CELLS 1+ BACTERIA 1+ TYPE AND SCREEN - 05/15/13 00:00 ABO O ABSCRN N Negative RH P CROSSMATCH - 05/15/13 00:00 CRSMTCH COMP Compatible CROSSMATCH - 05/15/13 00:00 CRSMTCH COMP Compatible LEUKOREDUCED RBC - 05/16/13 00:00 LEUKRBC GIVEN LEUKOREDUCED RBC - 05/16/13 00:00 LEUKRBC GIVEN CBC WITH DIFF - 05/16/13 00:00 BASO% 0.2 % 0-2 EOS% 0.9 % 0-7.0 HCT 28.5 % 36.9-47.0 HGB 9.7 G/DL 12.0-16.0 LYMPH% 16.7 % 20-40 MCH 32.8 PG 27-31 MCHC 34.0 G/DL 33-37 MCV 96.3 FL 81-99 MONO% 10.7 % 0-10.0 MPV 9.1 FL 7.3-10.4 NEUTRO% 71.5 % 40-70 PLT 130 10^3u 130-400 RBC 3.0 10^6u 4.2-5.4 RDW 18.7 % 11.5-15.5 WBC 4.7 10^3u 4.8-10.8 NEUTRO# 3.3 10^3u 1.5-7.5 LYMPH# 0.8 10^3u 0.9-4.0 MONO# 0.5 10^3u 0-0.8 EOS# 0.0 10^3u 0-0.6 BASO# 0.0 10^3u 0-0.1 BMP - 05/16/13 00:00 BCR 20.2 10-20 BUN 21 MG/DL 7-18 CA 8.1 MG/DL 8.4-10.2 CL 100 MEQ/L 98-107 CO2 29.2 MEQ/L 22-28 CREA 1.04 MG/DL 0.6-1.0 EGFR 53 eGFR >= 60 GLU 112 MG/DL 70-105 K 3.2 MEQ/L 3.5-5.1 NA 138 MEQ/L 134-145 OSMSC 279.4 MOSML 280-300 Anion Gap 8.8 8-16 CROSSMATCH - 05/16/13 00:00 CRSMTCH COMP Compatible CROSSMATCH - 05/16/13 00:00 CRSMTCH COMP Compatible CBC WITH DIFF - 05/17/13 00:00 BASO% 0.3 % 0-2 EOS% 1.9 % 0-7.0 HCT 27.1 % 36.9-47.0 HGB 9.1 G/DL 12.0-16.0 LYMPH% 19.6 % 20-40 MCH 32.4 PG 27-31 MCHC 33.6 G/DL 33-37 MCV 96.4 FL 81-99 MONO% 11.3 % 0-10.0 MPV 9.5 FL 7.3-10.4 NEUTRO% 66.9 % 40-70 PLT 136 10^3u 130-400 RBC 2.8 10^6u 4.2-5.4 RDW 17.9 % 11.5-15.5 WBC 3.6 10^3u 4.8-10.8 NEUTRO# 2.4 10^3u 1.5-7.5 LYMPH# 0.7 10^3u 0.9-4.0 MONO# 0.4 10^3u 0-0.8 EOS# 0.1 10^3u 0-0.6 BASO# 0.0 10^3u 0-0.1 CMP - 05/17/13 00:00 ALB 1.8 G/DL 3.5-5 ALP 118 IU/L 32-92 ALT 20 IU/L 12-65 AST 11 IU/L 10-42 BCR 14.3 10-20 BUN 15 MG/DL 7-18 CA 7.8 MG/DL 8.4-10.2 CL 101 MEQ/L 98-107 CO2 29.1 MEQ/L 22-28 CREA 1.05 MG/DL 0.6-1.0 EGFR 52 eGFR >= 60 GLU 88 MG/DL 70-105 K 3.1 MEQ/L 3.5-5.1 NA 137 MEQ/L 134-145 OSMSC 274.1 MOSML 280-300 TBIL 0.4 MG/DL 0.1-1.0 TP 5.3 G/DL 6.0-8.3 Albumin/Globulin Ratio 0.5 0-8 Anion Gap 6.9 8-16 LEUKOREDUCED RBC - 05/17/13 00:00 LEUKRBC GIVEN LEUKOREDUCED RBC - 05/17/13 00:00 LEUKRBC GIVEN CROSSMATCH - 05/17/13 00:00 CRSMTCH COMP Compatible CROSSMATCH - 05/17/13 00:00 CRSMTCH COMP Compatible LEUKOREDUCED RBC - 05/17/13 00:00 LEUKRBC GIVEN H AND H - 05/17/13 00:00 HCT 37.6 % 36.9-47.0 HGB 12.8 G/DL 12.0-16.0 CROSSMATCH - 05/17/13 00:00 CRSMTCH COMP Compatible CROSSMATCH - 05/17/13 00:00 CRSMTCH COMP Compatible CMP - 05/18/13 00:00 ALB 1.4 G/DL 3.5-5 ALP 89 IU/L 32-92 ALT 25 IU/L 12-65 AST 43 IU/L 10-42 BCR 9.7 10-20 BUN 14 MG/DL 7-18 CA 7.4 MG/DL 8.4-10.2 CL 102 MEQ/L 98-107 CO2 23.0 MEQ/L 22-28 CREA 1.45 MG/DL 0.6-1.0 EGFR 36 eGFR >= 60 GLU 257 MG/DL 70-105 K 3.5 MEQ/L 3.5-5.1 NA 137 MEQ/L 134-145 OSMSC 283.1 MOSML 280-300 TBIL 0.4 MG/DL 0.1-1.0 TP 4.6 G/DL 6.0-8.3 Albumin/Globulin Ratio 0.4 0-8 Anion Gap 12.0 8-16 CBC - 05/18/13 00:00 HCT 32.4 % 36.9-47.0 HGB 10.8 G/DL 12.0-16.0 MCH 30.7 PG 27-31 MCHC 33.3 G/DL 33-37 MCV 92.0 FL 81-99 MPV 9.6 FL 7.3-10.4 PLT 141 10^3u 130-400 RBC 3.5 10^6u 4.2-5.4 RDW 18.7 % 11.5-15.5 WBC 12.1 10^3u 4.8-10.8 CMP - 05/19/13 00:00 ALB 1.3 G/DL 3.5-5 ALP 80 IU/L 32-92 ALT 21 IU/L 12-65 AST 28 IU/L 10-42 BCR 13.4 10-20 BUN 23 MG/DL 7-18 CA 7.8 MG/DL 8.4-10.2 CL 106 MEQ/L 98-107 CO2 25.6 MEQ/L 22-28 CREA 1.72 MG/DL 0.6-1.0 EGFR 29 eGFR >= 60 GLU 74 MG/DL 70-105 K 3.5 MEQ/L 3.5-5.1 NA 140 MEQ/L 134-145 OSMSC 281.7 MOSML 280-300 TBIL 0.3 MG/DL 0.1-1.0 TP 4.6 G/DL 6.0-8.3 Albumin/Globulin Ratio 0.4 0-8 Anion Gap 8.4 8-16 CBC WITH DIFF - 05/19/13 00:00 BASO% 0.1 % 0-2 EOS% 2.6 % 0-7.0 HCT 24.3 % 36.9-47.0 HGB 8.1 G/DL 12.0-16.0 LYMPH% 11.5 % 20-40 MCH 31.0 PG 27-31 MCHC 33.3 G/DL 33-37 MCV 93.1 FL 81-99 MONO% 5.9 % 0-10.0 MPV 9.3 FL 7.3-10.4 NEUTRO% 79.9 % 40-70 PLT 121 10^3u 130-400 RBC 2.6 10^6u 4.2-5.4 RDW 18.6 % 11.5-15.5 WBC 7.7 10^3u 4.8-10.8 NEUTRO# 6.2 10^3u 1.5-7.5 LYMPH# 0.9 10^3u 0.9-4.0 MONO# 0.5 10^3u 0-0.8 EOS# 0.2 10^3u 0-0.6 BASO# 0.0 10^3u 0-0.1 H AND H - 05/20/13 00:00 HCT 21.9 % 36.9-47.0 HGB 7.3 G/DL 12.0-16.0 BMP - 05/20/13 00:00 BCR 16.9 10-20 BUN 23 MG/DL 7-18 CA 8.0 MG/DL 8.4-10.2 CL 107 MEQ/L 98-107 CO2 25.9 MEQ/L 22-28 CREA 1.36 MG/DL 0.6-1.0 EGFR 39 eGFR >= 60 GLU 59 MG/DL 70-105 K 3.0 MEQ/L 3.5-5.1 NA 143 MEQ/L 134-145 OSMSC 286.5 MOSML 280-300 Anion Gap 10.1 8-16 TYPE AND SCREEN - 05/20/13 00:00 ABO O ABSCRN N Negative RH P CROSSMATCH - 05/20/13 00:00 CRSMTCH COMP Compatible CROSSMATCH - 05/20/13 00:00 CRSMTCH COMP Compatible LEUKOREDUCED RBC - 05/20/13 00:00 LEUKRBC GIVEN LEUKOREDUCED RBC - 05/20/13 00:00 LEUKRBC GIVEN CBC WITH DIFF - 05/21/13 00:00 BASO% 0.2 % 0-2 EOS% 2.8 % 0-7.0 HCT 25.7 % 36.9-47.0 HGB 8.6 G/DL 12.0-16.0 LYMPH% 15.2 % 20-40 MCH 30.1 PG 27-31 MCHC 33.5 G/DL 33-37 MCV 89.9 FL 81-99 MONO% 7.1 % 0-10.0 MPV 9.6 FL 7.3-10.4 NEUTRO% 74.7 % 40-70 PLT 105 10^3u 130-400 RBC 2.9 10^6u 4.2-5.4 RDW 15.9 % 11.5-15.5 WBC 4.7 10^3u 4.8-10.8 NEUTRO# 3.5 10^3u 1.5-7.5 LYMPH# 0.7 10^3u 0.9-4.0 MONO# 0.3 10^3u 0-0.8 EOS# 0.1 10^3u 0-0.6 BASO# 0.0 10^3u 0-0.1 CMP - 05/21/13 00:00 ALB 1.2 G/DL 3.5-5 ALP 68 IU/L 32-92 ALT 14 IU/L 12-65 AST 20 IU/L 10-42 BCR 18.5 10-20 BUN 22 MG/DL 7-18 CA 7.9 MG/DL 8.4-10.2 CL 107 MEQ/L 98-107 CO2 26.8 MEQ/L 22-28 CREA 1.19 MG/DL 0.6-1.0 EGFR 45 eGFR >= 60 GLU 113 MG/DL 70-105 K 2.6 MEQ/L 3.5-5.1 NA 142 MEQ/L 134-145 OSMSC 287.3 MOSML 280-300 TBIL 0.5 MG/DL 0.1-1.0 TP 4.4 G/DL 6.0-8.3 Albumin/Globulin Ratio 0.4 0-8 Anion Gap 8.2 8-16 H AND H - 05/22/13 00:00 HCT 24.1 % 36.9-47.0 HGB 8.2 G/DL 12.0-16.0 BMP - 05/22/13 00:00 BCR 13.1 10-20 BUN 16 MG/DL 7-18 CA 7.9 MG/DL 8.4-10.2 CL 106 MEQ/L 98-107 CO2 28.0 MEQ/L 22-28 CREA 1.22 MG/DL 0.6-1.0 EGFR 44 eGFR >= 60 GLU 100 MG/DL 70-105 K 2.3 MEQ/L 3.5-5.1 NA 144 MEQ/L 134-145 OSMSC 288.1 MOSML 280-300 Anion Gap 10.0 8-16 MG - 05/22/13 00:00 MG 0.5 MG/DL 1.7-2.8 BMP - 05/23/13 00:00 BCR 12.4 10-20 BUN 12 MG/DL 7-18 CA 7.8 MG/DL 8.4-10.2 CL 103 MEQ/L 98-107 CO2 29.1 MEQ/L 22-28 CREA 0.97 MG/DL 0.6-1.0 EGFR 57 eGFR >= 60 GLU 102 MG/DL 70-105 K 2.9 MEQ/L 3.5-5.1 NA 141 MEQ/L 134-145 OSMSC 281.2 MOSML 280-300 Anion Gap 8.9 8-16 MG - 05/23/13 00:00 MG 1.3 MG/DL 1.7-2.8 H AND H - 05/23/13 00:00 HCT 23.8 % 36.9-47.0 HGB 8.1 G/DL 12.0-16.0 CMP - 05/24/13 00:00 ALB 1.4 G/DL 3.5-5 ALP 114 IU/L 32-92 ALT 11 IU/L 12-65 AST 15 IU/L 10-42 BCR 12.4 10-20 BUN 12 MG/DL 7-18 CA 8.3 MG/DL 8.4-10.2 CL 103 MEQ/L 98-107 CO2 29.7 MEQ/L 22-28 CREA 0.97 MG/DL 0.6-1.0 EGFR 57 eGFR >= 60 GLU 96 MG/DL 70-105 K 3.9 MEQ/L 3.5-5.1 NA 138 MEQ/L 134-145 OSMSC 275.3 MOSML 280-300 TBIL 0.3 MG/DL 0.1-1.0 TP 5.2 G/DL 6.0-8.3 Albumin/Globulin Ratio 0.4 0-8 Anion Gap 5.3 8-16 MG - 05/24/13 00:00 MG 2.2 MG/DL 1.7-2.8 CBC WITH DIFF - 05/24/13 00:00 EOS 1.0 % 0-7 HCT 27.5 % 36.9-47.0 HGB 9.2 G/DL 12.0-16.0 LYMPH 8.0 % 20-40 MCH 30.7 PG 27-31 MCHC 33.5 G/DL 33-37 MCV 91.7 FL 81-99 MONO 4.0 % 0-10 MPV 9.9 FL 7.3-10.4 PLT 161 10^3u 130-400 RBC 3.0 10^6u 4.2-5.4 RDW 16.1 % 11.5-15.5 WBC 11.7 10^3u 4.8-10.8 SEGS 87.0 % 40-70 UA - 05/24/13 00:00 PH 6.0 4.5-8.0 SG 1.010 1.003-1.035 UABILI NEGATIVE UABLD NEGATIVE UACOLOR YEL UAGLU NEGATIVE UAKET NEGATIVE UALEUK NEGATIVE UANIT NEGATIVE UAURO 0.2 0-0.2 CLARITY HAZY PROTEIN NEGATIVE UA WBC R05 UA RBC NORBC SQUAMOUS EPITHELIAL CELLS 1+ [facility] OCC RENAL EPITHELIAL CELLS RARE CMP - 05/26/13 00:00 ALB 1.2 G/DL 3.5-5 ALP 118 IU/L 32-92 ALT 7 IU/L 12-65 AST 13 IU/L 10-42 BCR 14.4 10-20 BUN 14 MG/DL 7-18 CA 7.8 MG/DL 8.4-10.2 CL 104 MEQ/L 98-107 CO2 31.9 MEQ/L 22-28 CREA 0.97 MG/DL 0.6-1.0 EGFR 57 eGFR >= 60 GLU 67 MG/DL 70-105 K 3.6 MEQ/L 3.5-5.1 NA 140 MEQ/L 134-145 OSMSC 278.1 MOSML 280-300 TBIL 0.3 MG/DL 0.1-1.0 TP 4.5 G/DL 6.0-8.3 Albumin/Globulin Ratio 0.4 0-8 Anion Gap 4.1 8-16 CBC WITH DIFF - 05/26/13 00:00 BASO% 0.2 % 0-2 EOS% 3.3 % 0-7.0 HCT 25.3 % 36.9-47.0 HGB 8.3 G/DL 12.0-16.0 LYMPH% 14.7 % 20-40 MCH 30.7 PG 27-31 MCHC 32.8 G/DL 33-37 MCV 93.7 FL 81-99 MONO% 7.7 % 0-10.0 MPV 9.9 FL 7.3-10.4 NEUTRO% 74.1 % 40-70 PLT 161 10^3u 130-400 RBC 2.7 10^6u 4.2-5.4 RDW 16.4 % 11.5-15.5 WBC 9.5 10^3u 4.8-10.8 NEUTRO# 7.1 10^3u 1.5-7.5 LYMPH# 1.4 10^3u 0.9-4.0 MONO# 0.7 10^3u 0-0.8 EOS# 0.3 10^3u 0-0.6 BASO# 0.0 10^3u 0-0.1 CBC WITH DIFF - 05/28/13 00:00 BASO% 0.3 % 0-2 EOS% 4.3 % 0-7.0 HCT 24.1 % 36.9-47.0 HGB 7.8 G/DL 12.0-16.0 LYMPH% 12.8 % 20-40 MCH 30.7 PG 27-31 MCHC 32.4 G/DL 33-37 MCV 94.9 FL 81-99 MONO% 8.6 % 0-10.0 MPV 10.3 FL 7.3-10.4 NEUTRO% 74.0 % 40-70 PLT 185 10^3u 130-400 RBC 2.5 10^6u 4.2-5.4 RDW 16.8 % 11.5-15.5 WBC 9.7 10^3u 4.8-10.8 NEUTRO# 7.2 10^3u 1.5-7.5 LYMPH# 1.2 10^3u 0.9-4.0 MONO# 0.8 10^3u 0-0.8 EOS# 0.4 10^3u 0-0.6 BASO# 0.0 10^3u 0-0.1 CMP - 05/28/13 00:00 ALB 1.0 G/DL 3.5-5 ALP 131 IU/L 32-92 ALT 8 IU/L 12-65 AST 13 IU/L 10-42 BCR 16.7 10-20 BUN 17 MG/DL 7-18 CA 7.9 MG/DL 8.4-10.2 CL 102 MEQ/L 98-107 CO2 33.0 MEQ/L 22-28 CREA 1.02 MG/DL 0.6-1.0 EGFR 54 eGFR >= 60 GLU 71 MG/DL 70-105 K 3.7 MEQ/L 3.5-5.1 NA 139 MEQ/L 134-145 OSMSC 277.6 MOSML 280-300 TBIL 0.3 MG/DL 0.1-1.0 TP 5.0 G/DL 6.0-8.3 Albumin/Globulin Ratio 0.2 0-8 Anion Gap 4.0 8-16 CBC WITH DIFF - 05/29/13 00:00 BASO% 0.1 % 0-2 EOS% 4.1 % 0-7.0 HCT 23.3 % 36.9-47.0 HGB 7.6 G/DL 12.0-16.0 LYMPH% 14.8 % 20-40 MCH 31.0 PG 27-31 MCHC 32.6 G/DL 33-37 MCV 95.1 FL 81-99 MONO% 10.2 % 0-10.0 MPV 9.8 FL 7.3-10.4 NEUTRO% 70.8 % 40-70 PLT 221 10^3u 130-400 RBC 2.5 10^6u 4.2-5.4 RDW 16.6 % 11.5-15.5 WBC 7.6 10^3u 4.8-10.8 NEUTRO# 5.4 10^3u 1.5-7.5 LYMPH# 1.1 10^3u 0.9-4.0 MONO# 0.8 10^3u 0-0.8 EOS# 0.3 10^3u 0-0.6 BASO# 0.0 10^3u 0-0.1 MG - 05/29/13 00:00 MG 1.2 MG/DL 1.7-2.8 PT INR - 05/29/13 00:00 INR 1.1 0.8-1.2 PT 11.4 SEC 9.1-12.0 CBC WITH DIFF - 05/30/13 00:00 BASO% 0.1 % 0-2 EOS% 3.2 % 0-7.0 HCT 23.4 % 36.9-47.0 HGB 7.6 G/DL 12.0-16.0 LYMPH% 13.7 % 20-40 MCH 30.9 PG 27-31 MCHC 32.5 G/DL 33-37 MCV 95.1 FL 81-99 MONO% 10.2 % 0-10.0 MPV 9.4 FL 7.3-10.4 NEUTRO% 72.8 % 40-70 PLT 279 10^3u 130-400 RBC 2.5 10^6u 4.2-5.4 RDW 16.9 % 11.5-15.5 WBC 8.5 10^3u 4.8-10.8 NEUTRO# 6.2 10^3u 1.5-7.5 LYMPH# 1.2 10^3u 0.9-4.0 MONO# 0.9 10^3u 0-0.8 EOS# 0.3 10^3u 0-0.6 BASO# 0.0 10^3u 0-0.1 CMP - 05/30/13 00:00 ALB 1.0 G/DL 3.5-5 ALP 134 IU/L 32-92 ALT 6 IU/L 12-65 AST 12 IU/L 10-42 BCR 16.1 10-20 BUN 18 MG/DL 7-18 CA 7.8 MG/DL 8.4-10.2 CL 100 MEQ/L 98-107 CO2 30.9 MEQ/L 22-28 CREA 1.12 MG/DL 0.6-1.0 EGFR 48 eGFR >= 60 GLU 74 MG/DL 70-105 K 3.5 MEQ/L 3.5-5.1 NA 137 MEQ/L 134-145 OSMSC 274.4 MOSML 280-300 TBIL 0.3 MG/DL 0.1-1.0 TP 5.1 G/DL 6.0-8.3 Albumin/Globulin Ratio 0.2 0-8 Anion Gap 6.1 8-16 MG - 05/30/13 00:00 MG 2.1 MG/DL 1.7-2.8 ANAEROBIC CULT - 05/30/13 00:00 ANAEROBIC CULTURE SEE NOTE CBC WITH DIFF - 05/31/13 00:00 BASO% 0.3 % 0-2 EOS% 6.1 % 0-7.0 HCT 23.6 % 36.9-47.0 HGB 7.5 G/DL 12.0-16.0 LYMPH% 16.1 % 20-40 MCH 30.4 PG 27-31 MCHC 31.8 G/DL 33-37 MCV 95.5 FL 81-99 MONO% 9.3 % 0-10.0 MPV 9.1 FL 7.3-10.4 NEUTRO% 68.2 % 40-70 PLT 269 10^3u 130-400 RBC 2.5 10^6u 4.2-5.4 RDW 16.9 % 11.5-15.5 WBC 6.2 10^3u 4.8-10.8 NEUTRO# 4.3 10^3u 1.5-7.5 LYMPH# 1.0 10^3u 0.9-4.0 MONO# 0.6 10^3u 0-0.8 EOS# 0.4 10^3u 0-0.6 BASO# 0.0 10^3u 0-0.1 BMP - 05/31/13 00:00 BCR 17.8 10-20 BUN 18 MG/DL 7-18 CA 8.1 MG/DL 8.4-10.2 CL 103 MEQ/L 98-107 CO2 30.6 MEQ/L 22-28 CREA 1.01 MG/DL 0.6-1.0 EGFR 55 eGFR >= 60 GLU 76 MG/DL 70-105 K 3.7 MEQ/L 3.5-5.1 NA 140 MEQ/L 134-145 OSMSC 280.1 MOSML 280-300 Anion Gap 6.4 8-16 MG - 05/31/13 00:00 MG 1.8 MG/DL 1.7-2.8 CBC WITH DIFF - 06/01/13 00:00 BASO% 0.5 % 0-2 EOS% 6.6 % 0-7.0 HCT 23.0 % 36.9-47.0 HGB 7.3 G/DL 12.0-16.0 LYMPH% 23.4 % 20-40 MCH 30.4 PG 27-31 MCHC 31.7 G/DL 33-37 MCV 95.8 FL 81-99 MONO% 10.9 % 0-10.0 MPV 9.1 FL 7.3-10.4 NEUTRO% 58.6 % 40-70 PLT 304 10^3u 130-400 RBC 2.4 10^6u 4.2-5.4 RDW 16.7 % 11.5-15.5 WBC 6.3 10^3u 4.8-10.8 NEUTRO# 3.7 10^3u 1.5-7.5 LYMPH# 1.5 10^3u 0.9-4.0 MONO# 0.7 10^3u 0-0.8 EOS# 0.4 10^3u 0-0.6 BASO# 0.0 10^3u 0-0.1 CMP - 06/01/13 00:00 ALB 1.0 G/DL 3.5-5 ALP 136 IU/L 32-92 ALT 7 IU/L 12-65 AST 12 IU/L 10-42 BCR 17.8 10-20 BUN 18 MG/DL 7-18 CA 7.9 MG/DL 8.4-10.2 CL 102 MEQ/L 98-107 CO2 30.2 MEQ/L 22-28 CREA 1.01 MG/DL 0.6-1.0 EGFR 55 eGFR >= 60 GLU 69 MG/DL 70-105 K 3.8 MEQ/L 3.5-5.1 NA 138 MEQ/L 134-145 OSMSC 275.9 MOSML 280-300 TBIL 0.1 MG/DL 0.1-1.0 TP 5.1 G/DL 6.0-8.3 Albumin/Globulin Ratio 0.2 0-8 Anion Gap 5.8 8-16 MG - 06/01/13 00:00 MG 1.5 MG/DL 1.7-2.8 H AND H - 06/02/13 00:00 HCT 21.3 % 36.9-47.0 HGB 6.8 G/DL 12.0-16.0 MG - 06/02/13 00:00 MG 2.1 MG/DL 1.7-2.8 ABO TYPE - 06/02/13 00:00 ABO O ANTIBODY SCREEN - 06/02/13 00:00 ABSCRN N Negative CROSSMATCH - 06/02/13 00:00 CRSMTCH COMP Compatible CROSSMATCH - 06/02/13 00:00 CRSMTCH COMP Compatible RH TYPE - 06/02/13 00:00 RH P LEUKOREDUCED RBC - 06/02/13 00:00 LEUKRBC GIVEN LEUKOREDUCED RBC - 06/02/13 00:00 LEUKRBC GIVEN CBC WITH DIFF - 06/03/13 00:00 BASO% 0.4 % 0-2 EOS% 6.0 % 0-7.0 HCT 31.4 % 36.9-47.0 HGB 10.5 G/DL 12.0-16.0 LYMPH% 14.3 % 20-40 MCH 30.2 PG 27-31 MCHC 33.4 G/DL 33-37 MCV 90.2 FL 81-99 MONO% 10.3 % 0-10.0 MPV 9.0 FL 7.3-10.4 NEUTRO% 69.0 % 40-70 PLT 310 10^3u 130-400 RBC 3.5 10^6u 4.2-5.4 RDW 18.7 % 11.5-15.5 WBC 8.0 10^3u 4.8-10.8 NEUTRO# 5.5 10^3u 1.5-7.5 LYMPH# 1.1 10^3u 0.9-4.0 MONO# 0.8 10^3u 0-0.8 EOS# 0.5 10^3u 0-0.6 BASO# 0.0 10^3u 0-0.1 CMP - 06/03/13 00:00 ALB 1.1 G/DL 3.5-5 ALP 144 IU/L 32-92 ALT 5 IU/L 12-65 AST 13 IU/L 10-42 BCR 15.7 10-20 BUN 16 MG/DL 7-18 CA 8.2 MG/DL 8.4-10.2 CL 103 MEQ/L 98-107 CO2 31.4 MEQ/L 22-28 CREA 1.02 MG/DL 0.6-1.0 EGFR 54 eGFR >= 60 GLU 73 MG/DL 70-105 K 4.1 MEQ/L 3.5-5.1 NA 140 MEQ/L 134-145 OSMSC 279.2 MOSML 280-300 TBIL 0.3 MG/DL 0.1-1.0 TP 5.4 G/DL 6.0-8.3 Albumin/Globulin Ratio 0.3 0-8 Anion Gap 5.6 8-16 VANCOT - 06/03/13 00:00 VANCOT 11.0 UG/ML 10-22 CBC WITH DIFF - 06/05/13 00:00 BASO% 0.5 % 0-2 EOS% 2.9 % 0-7.0 HCT 32.6 % 36.9-47.0 HGB 10.8 G/DL 12.0-16.0 LYMPH% 14.2 % 20-40 MCH 30.3 PG 27-31 MCHC 33.1 G/DL 33-37 MCV 91.6 FL 81-99 MONO% 11.7 % 0-10.0 MPV 8.5 FL 7.3-10.4 NEUTRO% 70.7 % 40-70 PLT 319 10^3u 130-400 RBC 3.6 10^6u 4.2-5.4 RDW 17.5 % 11.5-15.5 WBC 8.7 10^3u 4.8-10.8 NEUTRO# 6.1 10^3u 1.5-7.5 LYMPH# 1.2 10^3u 0.9-4.0 MONO# 1.0 10^3u 0-0.8 EOS# 0.3 10^3u 0-0.6 BASO# 0.0 10^3u 0-0.1 VANCOT - 06/05/13 00:00 VANCOT 29.7 UG/ML 10-22 BMP - 06/05/13 00:00 BCR 13.7 10-20 BUN 14 MG/DL 7-18 CA 8.7 MG/DL 8.4-10.2 CL 101 MEQ/L 98-107 CO2 29.6 MEQ/L 22-28 CREA 1.02 MG/DL 0.6-1.0 EGFR 54 eGFR >= 60 GLU 79 MG/DL 70-105 K 3.8 MEQ/L 3.5-5.1 NA 137 MEQ/L 134-145 OSMSC 273.2 MOSML 280-300 Anion Gap 6.4 8-16 MG - 06/05/13 00:00 MG 1.2 MG/DL 1.7-2.8 MG - 06/08/13 00:00 MG 1.5 MG/DL 1.7-2.8 VANCOT - 06/08/13 00:00 VANCOT 24.7 UG/ML 10-22 MG - 06/15/13 00:00 MG 1.0 MG/DL 1.7-2.8 MG - 06/22/13 00:00 MG 1.2 MG/DL 1.7-2.8 MG - 06/29/13 00:00 MG 1.1 MG/DL 1.7-2.8 MG - 07/06/13 00:00 MG 1.0 MG/DL 1.7-2.8 MG - 07/13/13 00:00 MG 0.9 MG/DL 1.7-2.8 MG - 07/17/13 00:00 MG 1.0 MG/DL 1.7-2.8 MG - 07/20/13 00:00 MG 1.3 MG/DL 1.7-2.8 MG - 07/24/13 00:00 MG 1.1 MG/DL 1.7-2.8 MG - 07/27/13 00:00 MG 1.4 MG/DL 1.7-2.8 MG - 07/31/13 00:00 MG 1.2 MG/DL 1.7-2.8 MG - 08/03/13 00:00 MG 1.2 MG/DL 1.7-2.8 RENAL PROFILE - 08/06/13 00:00 ALB 3.1 G/DL 3.5-5 BCR 22.6 10-20 BUN 28 MG/DL 7-18 CA 9.5 MG/DL 8.4-10.2 CL 106 MEQ/L 98-107 CO2 31.4 MEQ/L 22-28 CREA 1.24 MG/DL 0.6-1.0 EGFR 43 eGFR >= 60 GLU 115 MG/DL 70-105 K 4.0 MEQ/L 3.5-5.1 NA 142 MEQ/L 134-145 OSMSC 289.5 MOSML 280-300 PO4 3.2 MG/DL 1.9-4.5 Anion Gap 4.6 8-16 MG - 08/06/13 00:00 MG 1.2 MG/DL 1.7-2.8 MG - 08/09/13 00:00 MG 1.3 MG/DL 1.7-2.8 MG - 08/14/13 00:00 MG 1.3 MG/DL 1.7-2.8 RENAL PROFILE - 08/14/13 00:00 ALB 3.1 G/DL 3.5-5 BCR 19.0 10-20 BUN 22 MG/DL 7-18 CA 9.1 MG/DL 8.4-10.2 CL 107 MEQ/L 98-107 CO2 26.9 MEQ/L 22-28 CREA 1.16 MG/DL 0.6-1.0 EGFR 46 eGFR >= 60 GLU 66 MG/DL 70-105 K 4.2 MEQ/L 3.5-5.1 NA 141 MEQ/L 134-145 OSMSC 282.8 MOSML 280-300 PO4 3.5 MG/DL 1.9-4.5 Anion Gap 7.1 8-16 MG - 08/17/13 00:00 MG 1.5 MG/DL 1.7-2.8 MG - 08/20/13 00:00 MG 1.5 MG/DL 1.7-2.8 MG - 08/23/13 00:00 MG 1.5 MG/DL 1.7-2.8 MG - 08/27/13 00:00 MG 1.3 MG/DL 1.7-2.8 MG - 08/30/13 00:00 MG 1.3 MG/DL 1.7-2.8 MG - 09/03/13 00:00 MG 1.4 MG/DL 1.7-2.8 MG - 09/06/13 00:00 MG 1.4 MG/DL 1.7-2.8 MG - 09/10/13 00:00 MG 1.4 MG/DL 1.7-2.8 MG - 09/13/13 00:00 MG 1.7 MG/DL 1.7-2.8 MG - 09/17/13 00:00 MG 1.6 MG/DL 1.7-2.8 MG - 09/20/13 00:00 MG 1.5 MG/DL 1.7-2.8 MG - 09/24/13 00:00 MG 1.5 MG/DL 1.7-2.8 MG - 09/27/13 00:00 MG 1.7 MG/DL 1.7-2.8 MG - 10/01/13 00:00 MG 2.5 MG/DL 1.7-2.8 MG - 10/04/13 00:00 MG 1.6 MG/DL 1.7-2.8 MG - 10/08/13 00:00 MG 1.8 MG/DL 1.7-2.8 MG - 10/11/13 00:00 MG 1.8 MG/DL 1.7-2.8 MG - 10/15/13 00:00 MG 1.5 MG/DL 1.7-2.8 MG - 10/18/13 00:00 MG 1.8 MG/DL 1.7-2.8 MG - 10/22/13 00:00 MG 3.6 MG/DL 1.7-2.8 MG - 10/22/13 00:00 MG 3.4 MG/DL 1.7-2.8 MG - 10/25/13 00:00 MG 1.6 MG/DL 1.7-2.8 MG - 10/29/13 00:00 MG 1.7 MG/DL 1.7-2.8 MG - 11/01/13 00:00 MG 1.6 MG/DL 1.7-2.8 VIT D PANEL - 11/01/13 00:00 VITD4 27 pg/mL 18-72 VITD 25 OH TOTAL 33 ng/mL 30-100 VIT D 25 OH D2 < 4 ng/mL See Below VIT D 25 OH D3 33 ng/mL See Below VIT D3 1,25 27 pg/mL VIT D2 1,25 < 8 pg/mL MG - 11/05/13 00:00 MG 1.7 MG/DL 1.7-2.8 MG - 11/08/13 00:00 MG 1.6 MG/DL 1.7-2.8 MG - 11/12/13 00:00 MG 1.8 MG/DL 1.7-2.8 CBC WITH DIFF - 11/12/13 00:00 BASO% 0.2 % 0-2 EOS% 1.6 % 0-7.0 HCT 38.7 % 36.9-47.0 HGB 13.1 G/DL 12.0-16.0 LYMPH% 22.5 % 20-40 MCH 33.5 PG 27-31 MCHC 33.9 G/DL 33-37 MCV 99.0 FL 81-99 MONO% 7.9 % 0-10.0 MPV 8.6 FL 7.3-10.4 NEUTRO% 67.8 % 40-70 PLT 169 10^3u 130-400 RBC 3.9 10^6u 4.2-5.4 RDW 12.9 % 11.5-15.5 WBC 6.2 10^3u 4.8-10.8 NEUTRO# 4.2 10^3u 1.5-7.5 LYMPH# 1.4 10^3u 0.9-4.0 MONO# 0.5 10^3u 0-0.8 EOS# 0.1 10^3u 0-0.6 BASO# 0.0 10^3u 0-0.1 CMP - 11/12/13 00:00 ALB 3.6 G/DL 3.5-5 ALP 164 IU/L 25-72 ALT 58 IU/L 12-65 AST 36 IU/L 10-42 BCR 22.0 10-20 BUN 29 MG/DL 7-18 CA 10.0 MG/DL 8.4-10.2 CL 102 MEQ/L 98-107 CO2 28.6 MEQ/L 22-28 CREA 1.32 MG/DL 0.6-1.0 EGFR 40 eGFR >= 60 GLU 114 MG/DL 70-105 K 3.6 MEQ/L 3.5-5.1 NA 137 MEQ/L 134-145 OSMSC 280.5 MOSML 280-300 TBIL 0.4 MG/DL 0.1-1.0 TP 7.3 G/DL 6.0-8.3 Albumin/Globulin Ratio 1.0 0-8 Anion Gap 6.4 8-16 MG - 11/12/13 00:00 MG 5.8 MG/DL 1.7-2.8 UA - 11/12/13 00:00 PH 5.5 4.5-8.0 SG 1.005 UABILI NEGATIVE UABLD NEGATIVE UACOLOR YEL UAGLU NEGATIVE UAKET NEGATIVE UALEUK NEGATIVE UANIT NEGATIVE UAURO 0.2 0-0.2 CLARITY CL PROTEIN NEGATIVE UA WBC R05 UA RBC NORBC SQUAMOUS EPITHELIAL CELLS FEW MG - 11/19/13 00:00 MG 2.0 MG/DL 1.7-2.8 MG - 11/22/13 00:00 MG 1.7 MG/DL 1.7-2.8 MG - 11/26/13 00:00 MG 1.9 MG/DL 1.7-2.8 MG - 11/29/13 00:00 MG 2.2 MG/DL 1.7-2.8 MG - 12/06/13 00:00 MG 2.0 MG/DL 1.7-2.8 CBC WITH DIFF - 12/13/13 00:00 BASO% 0.2 % 0-2 EOS% 4.1 % 0-7.0 HCT 39.3 % 36.9-47.0 HGB 13.6 G/DL 12.0-16.0 LYMPH% 31.7 % 20-40 MCH 34.2 PG 27-31 MCHC 34.6 G/DL 33-37 MCV 98.7 FL 81-99 MONO% 9.3 % 0-10.0 MPV 8.3 FL 7.3-10.4 NEUTRO% 54.7 % 40-70 PLT 162 10^3u 130-400 RBC 4.0 10^6u 4.2-5.4 RDW 13.4 % 11.5-15.5 WBC 4.6 10^3u 4.8-10.8 NEUTRO# 2.5 10^3u 1.5-7.5 LYMPH# 1.5 10^3u 0.9-4.0 MONO# 0.4 10^3u 0-0.8 EOS# 0.2 10^3u 0-0.6 BASO# 0.0 10^3u 0-0.1 CMP - 12/13/13 00:00 ALB 3.6 G/DL 3.5-5 ALP 127 IU/L 25-72 ALT 44 IU/L 12-65 AST 33 IU/L 10-42 BCR 19.8 10-20 BUN 25 MG/DL 7-18 CA 8.5 MG/DL 8.4-10.2 CL 104 MEQ/L 98-107 CO2 28.8 MEQ/L 22-28 CREA 1.26 MG/DL 0.6-1.0 EGFR 42 eGFR >= 60 GLU 85 MG/DL 70-105 K 3.9 MEQ/L 3.5-5.1 NA 139 MEQ/L 134-145 OSMSC 281.2 MOSML 280-300 TBIL 0.6 MG/DL 0.1-1.0 TP 7.1 G/DL 6.0-8.3 Albumin/Globulin Ratio 1.0 0-8 Anion Gap 6.2 8-16 MG - 12/13/13 00:00 MG 2.1 MG/DL 1.7-2.8 PO4 - 11/06/14 00:00 PO4 3.1 MG/DL 1.9-4.5 CEA - 12/13/13 00:00 CEA 1.3 ng/mL MG - 12/09/14 00:00 MG 1.7 MG/DL 1.7-2.8 RENAL PROFILE - 12/09/14 00:00 ALB 3.7 G/DL 3.5-5 BCR 23.3 10-20 BUN 31 MG/DL 7-18 CA 9.4 MG/DL 8.4-10.2 CL 101 MEQ/L 98-107 CO2 36.1 MEQ/L 22-28 CREA 1.33 MG/DL 0.6-1.0 EGFR 39 eGFR >= 60 GLU 91 MG/DL 70-105 K 4.3 MEQ/L 3.5-5.1 NA 143 MEQ/L 134-145 OSMSC 291.1 MOSML 280-300 PO4 4.0 MG/DL 1.9-4.5 Anion Gap 5.9 8-16 PTT - 03/30/18 10:27 PTT 23.7 second(s) 23.0-30.0 PT - 03/30/18 10:27 PT 9.8 second(s) 9.6-11.9 INR 1.0 "" 0.9-1.1 TSH - 07/28/18 16:22 TSH 21.63 uIU/mL 0.35-5.50 Thyroglobulin, Tumor Marker - 08/30/18 0 9:13 Thyroglob, Tumor Marker 19 ng/mL Methicillin resistant Staphylococcus aur eus (MRSA) screening culture - 12/27/18 15:59 Methicillin resistant Staphylococcus aureus (MRSA) scr eening culture NEG [facility] Radiology Report from [id number] on 013 10:17:00 Final ReportADMITTING DIAGNOSIS: small bowel obstruction re check previous ileusKUB,UPRIGHT /OR DECUB - 08/26/2012 [facility]P ON [facility] RESULT: EXAMINATION: Abdominal series, August 26, 2012.INDICATION: Reevaluate ileus.Comparison is made to CT examination from August 23, 2012.Images were obtained on August 26, 2012. These were not availablefor review until September 13, 2012. The reason for this delay isbeing evaluated.FINDINGS: These views of the abdomen demonstrate chain suturesin the right lower quadrant and surgical clips. The degree ofsmall bowel dilatation is not significantly changed from theprevious vpk teacher acquisition on the CT examination within the leftabdomen. Previous right-sided bowel dilatation no longerevident. There are air-fluid levels present on the uprightviews.IMPRESSION: Persistent left abdominal small bowel dilatation,with gaseous distention and air-fluid levels on the uprightviews. Though the findings may reflect ileus, at least partialsmall bowel obstruction could not be fully excluded. No free airis evident.Dictated on workstation # [id number] BY: FATOU EL M.D., RADIOLOGISTELECTRONICALLY SIGNED BY: FATUO EL M.D., RADIOLOGISTD Sep 13 2012 10:03AT OLVIN: Sep 13 2012 10:15AS Sep 13 2012 10:15A Radiology Report from [id number] on 013 10:34:00 Final ReportADMITTING DIAGNOSIS: Colon CA with Recent Dissectio feverCT ABD/PELVIS W - 09/05/2012 [facility] RESULT: INDICATION: Right lower quadrant pain, history of appendectomyand colon cancer.CT of the abdomen and pelvis obtained with IV contrast bolus.Comparison is made to a study from [facility]08[facility]23/12.FINDINGS: Visualized portions of the lung bases show dependentatelectatic changes. There is no pleural fluid or freeintraperitoneal air.The liver shows a hypodense lesion compatible with a cyst in theright lobe measuring about 5.4 cm, similar to the prior study.There is a tiny probable cyst in the anterior portion of theright lobe measuring less than a centimeter. The spleen,adrenals, and pancreas are normal. There is a benign-appearingcyst in the right kidney inferiorly which is similar to theprior study. There is moderate hydronephrosis of the rightkidney which appears worsened compared to the previous study.Left kidney shows a few small cysts as well. There is noretroperitoneal mass or adenopathy. There are postop changes inthe right lower quadrant with some mild fat stranding which mayrepresent inflammation or scarring. There is a fluid densityarea in the right lower quadrant mesentery medial to the colonmeasuring about 2.9 cm. It is unclear if this representsunopacified bowel or small abscess. Consider a followup studywith rectal contrast as indicated. There is no pelvic mass orabnormal fluid collection. There is moderate dilatation of smallbowel loops proximally with decompression of distal small bowel,question partial or early small bowel obstruction.IMPRESSION: Postop changes in the right lower quadrant with surgical clips.There is some fat stranding in the right lower quadrantmesentery which may represent postsurgical change and/orinflammation. There is a fluid density area medial to the colonin the right lower quadrant mesentery, and is unclear if thisrepresents unopacified bowel or a small abscess. A followupstudy with rectal contrast might be helpful.There is moderate dilatation of small bowel loops proximally,question partial or early small bowel obstruction. There ismoderate hydronephrosis on the right side which has increasedcompared to the previous study.Dictated on workstation # [id number] BY: MICHAEL JUAN M.D., RADIOLOGISTELECTRONICALLY SIGNED BY: MICHAEL JUAN M.D., RADIOLOGISTD Sep 05 2012 10:01PT SA2: Sep 06 2012 10:32AS Sep 06 2012 10:32A Radiology Report from [id number] on 013 22:18:00 Final ReportADMITTING DIAGNOSIS: Colon CA with Recent Dissectio feverCHEST PA LAT - 09/05/2012 [facility] RESULT: INDICATION: FeverPA and lateral chestHeart and mediastinum are normal. Lungs are clear. There are noeffusions or pneumothoraces.IMPRESSION: Negative chestDictated on workstation # [id number] BY: JL BULLOCK M.D., RADIOLOGISTELECTRONICALLY SIGNED BY: JL BULLOCK M.D., RADIOLOGISTD Sep 05 2012 10:01PT AKBAR: Sep 05 2012 10:16PS Sep 05 2012 10:16P Radiology Report from [id number] on 013 15:12:00 Final ReportADMITTING DIAGNOSIS: Colon CA with Recent Dissectio RLQ abscessCT ABD/PELVIS W/O - 09/07/2012 [facility] RESULT: INDICATION: Possible abscess, colon cancer with dissection, feverRESULT: CT scanning of the abdomen and pelvis was obtained afterthe administration of the oral and rectal contrast. Exam iscompared to the CT study with intravenous from 2 days ago.The terminal ileum is still not opacified with rectal or oralcontrast. This can now be followed. Anterior to the terminalileum is a 2.1 x 1.2 cm phlegmonous area with a small air bubblewithin this. Previously, this measured 2.3 x 2.0 cm and hadlarge amount of air within it. This is consistent with aresolving phlegmonous area and possible hematoma. The colon justabove the anastomosis has edema in the posterior medial aspectand some surrounding inflammation. A small air bubble in themesentery seen just adjacent to this. Just superior to this andadjacent to there does appear to be a small amount of contrastgoing into this. No free fluid is seen within the pelvis. Ahiatal hernia is again identified. There is a small rightpleural effusion measuring 4 mm which was not presentpreviously.IMPRESSION: 1. The questionable abscess seen medial to the operative site onthe previous exam is seen to be mostly small bowel. There was anair-fluid level on top of this which has nearly resolved.2. There is an air-fluid level lateral to the anastomotic linejust superior to it extending up to the tail of the liver, mostof this is air. A small amount of contrast is seen going intothis consistent with a leak. This was called to Dr. Lopez.3. There is edema in the bowel wall near the operative site.Dictated on workstation # [id number] BY: ROBER DAY M.D., ELECTRONICALLY SIGNED BY: ROBER DAY M.D., D Sep 07 2012 11:49AT AKBAR: Sep 07 2012 3:10PS Sep 07 2012 3:10P Radiology Report from [id number] on 013 19:55:00 Final ReportADMITTING DIAGNOSIS: Colon CA with Recent Dissectio DRAIN FLUID LEAVE DRAIN INCT GUIDE FOR DRAINAGE W/CATH - 09/07/2012 [facility] RESULT: INDICATION: Abdominal abscessThe patient was placed in supine position on the CT table.Preliminary scans through the abdomen were obtained. Usingaseptic technique and local anesthesia under CT guidance an18- gauge Cook needle was introduced into the fluid collection.Fluid was aspirated. A guidewire was then used to allowplacement of an 8 Frisian drain into the collection. A total of35 mL of purulent fluid was drained. Part of this was sent tothe left for micro analysis.IMPRESSION: CT-guided percutaneous drainage of abscess in theright subhepatic space from a subcostal approach.Dictated on workstation # [id number] BY: JL BULLOCK M.D., RADIOLOGISTELECTRONICALLY SIGNED BY: JL BULLOCK M.D., RADIOLOGISTD Sep 07 2012 7:13PT AKBAR: Sep 07 2012 7:52PS Sep 07 2012 7:52P Radiology Report from [id number] on 013 14:33:00 Final ReportADMITTING DIAGNOSIS: Colon CA with Recent Dissectio contrast per drain under fluoro to r/o fistruloFISTULA/SINUS TRACT STUDY - 09/14/2012 [facility] RESULT: INDICATION: Patient is with history of right hemicolectomy withknown anastomotic leak with a drainage catheter present.Contrast was injected through the patient''s catheter with imagesobtained. The study is performed under the direction of anotherradiologist. This is being performed for dictation purposes.FINDINGS:Following contrast injection, there are findings compatible witha fistulous communication of the abscess and direct filling ofthe hepatic flexure of the colon.IMPRESSION: The fistulogram demonstrates prompt filling of the abscesscavity and into the hepatic flexure.Dictated on workstation # [id number] BY: LAUREN CONTRERAS D.O., RADIOLOGISTELECTRONICALLY SIGNED BY: LAUREN CONTRERAS D.O., RADIOLOGISTD Sep 14 2012 1:12PT PH : Sep 14 2012 2:31PS Sep 14 2012 2:31P Radiology Report from [id number] on 013 15:34:00 Final ReportADMITTING DIAGNOSIS: Colon CA with Recent Dissectio PICC line placementCHEST PIC LINE PLACEMENT-ONE VIE - 09/18/2012 [facility] RESULT: TIME: 3:07 p.m.INDICATION: PICC line placement.Upright portable chest shows normal heart size and vascularity.There has been placement of a PICC line from the left. Tip is inthe superior vena cava/right atrial junction region.IMPRESSION: Satisfactory PICC line placement. There is no othersignificant change from 09/05/12.Dictated on workstation # [id number] BY: KAY PIERCE M.D., RADIOLOGISTELECTRONICALLY SIGNED BY: KAY PIERCE M.D., RADIOLOGISTD Sep 18 2012 3:23PT PH : Sep 18 2012 3:31PS Sep 18 2012 3:31P Radiology Report from [id number] on 013 22:28:00 Final ReportADMITTING DIAGNOSIS: Colon CA with Recent Dissectio r/o: dvtEXT LOWER VENOUS DUPLEX UNI LT - 09/18/2012 [facility] RESULT: INDICATION: Left leg swelling.EXAMINATION: Grayscale and color Doppler evaluation of the deepveins of the left lower extremity were performed with waveformanalysis.FINDINGS: Continuous venous flow is present. No intraluminalfilling defect is identified. There is normal compressibilityand response to augmentation. No abnormal perivascular fluidcollection is identified.IMPRESSION: No ultrasound evidence of left lower extremity deepvenous thrombosis.Dictated on workstation # [id number] RADIOLOGIST: KASEY REY M.D., RADIOLOGISTELECTRONICALLY SIGNED BY: KASEY REY M.D., RADIOLOGISTD Sep 18 2012 6:07PT AS6: Sep 18 2012 10:25PS Sep 18 2012 10:25P Radiology Report from [id number] on 09/07 13:22:00 Reason For ExamMalignant neoplasm of thy roid glandREPORTINDICATION: Thyroid cancer status post thyroidectomy.COMPARISON: None available.TECHNIQUE: Whole- body scintigraphic imaging was performed eight days after theoral administration of 31.05 mCi of I-131.FINDINGS: There is avid radiotracer activity at the level of thyroid bed withstar artifact, compatible with residual thyroid tissue. A small amount ofactivity is seen within the GI tract and can be considered physiologic. Nodistant foci of radiotracer activity to suggest metastasis.IMPRESSION:1. No distant thyroid metastases.2. Residual thyroid tis gm in the thyroid bed.Tech Comments: Isotope Name: i-131Activity (mCi) 31.05Dictated on workstation:[id number] Line PRELIMINARY DICTATED BY: RAMANDEEP COE MDDICTATED DT/TM: 09/07/2018 1:15 Encounters ACCT No. Visit Date/Time Discharge Status Pt. Type Provider Facility Loc./Unit Complaint [id number] 08/21/2015 08:47:00 08/21/2015 08:47 :00 DIS Outpatient NABBOUT, SHANDRA [facility] RAD [id number] 08/04/2015 09:52:00 08/04/2015 09:52 :00 DIS Outpatient NABBOUT, SHANDRA H [facility] RAD [id number] 07/09/2015 08:35:00 07/09/2015 08:35 :00 DIS Outpatient NABBOUT, SHANDRA H [facility] RAD [id number] 05/29/2015 07:51:00 05/29/2015 07:51 :00 DIS Outpatient NABBOUT, SHANDRA [facility] RAD [id number] 12/09/2014 11:06:00 12/09/2014 11:06 :00 DIS Outpatient LEO PUENTES [facility] LAB [id number] 12/02/2014 07:47:00 12/02/2014 07:47 :00 DIS Outpatient NABBOUT, SHANDRA [facility] RAD [id number] 11/18/2014 00:00:00 11/18/2014 23:59 :59 CLS Outpatient SHANTI GUNN [facility] RAD [id number] 06/21/2014 10:20:00 06/21/2014 13:20 :00 DIS Inpatient ADAM DALE [facility] OPS [id number] 06/04/2014 07:39:00 06/04/2014 07:39 :00 DIS Outpatient NABBOUT, SHANDRA [facility] RAD [id number] 05/01/2014 09:21:00 05/01/2014 09:21 :00 DIS Outpatient NABBOUT, SHANDRA [facility] RAD [id number] 12/08/2013 00:01:00 01/06/2014 23: 59:00 DIS Outpatient OSITO TAVERAS [facility] INF [id number] 12/17/2013 08:32:00 12/17/2013 08:32 :00 DIS Outpatient SHANDRA BUTTS [facility] RAD [id number] 12/13/2013 08:15:00 12/13/2013 08:15 :00 DIS Outpatient LEO PUENTES [facility] LAB [id number] 11/07/2013 00:01:00 12/07/2013 23: 59:00 DIS Outpatient MADRIPhilip, [facility] INF [id number] 11/12/2013 10:53:00 11/12/2013 13:45 :00 DIS Emergency NICK MICHAEL Cordon [facility] EMR [id number] 10/08/2013 00:01:00 11/06/2013 23: 59:00 DIS Outpatient MADRIL, [facility] INF [id number] 10/17/2013 15:51:00 10/17/2013 15:51 :00 DIS Outpatient MADRIL, [facility] RAD [id number] 09/07/2013 00:01:00 10/07/2013 23: 59:00 DIS Outpatient MADRIL, [facility] INF [id number] 07/08/2013 00:01:00 07/08/2013 23: 59:59 CLS Outpatient MADRIL, [facility] INF [id number] 06/07/2013 00:01:00 07/07/2013 23: 59:00 DIS Outpatient MADRIL, [facility] INF [id number] 06/05/2013 05:53:00 06/06/2013 23: 59:00 DIS Outpatient MADRIL, [facility] INF [id number] 05/24/2013 15:55:00 06/04/2013 19:46 :00 DIS Inpatient MADRIL, [address] [id number] 05/15/2013 15:19:00 05/24/2013 15:55 :00 DIS Inpatient MADRIL, [address] [id number] 05/11/2013 07:30:00 05/11/2013 07:30 :00 DIS Outpatient NABBOUT, SHANDRA H [facility] RAD [id number] 04/06/2013 13:38:00 04/06/2013 13:38 :00 DIS Outpatient NABBOUT, SHANDRA H [facility] RAD [id number] 01/06/2014 00:00:00 Document Registration [id number] 03/27/2013 08:14:00 Document Registration [id number] 03/26/2013 08:00:00 Document Registration [id number] 01/06/2013 00:00:00 Document Registration [id number] 01/06/2013 00:00:00 Document Registration [id number] 01/06/2013 00:00:00 Document Registration [id number] 01/06/2013 00:00:00 Document Registration [id number] 01/06/2013 00:00:00 Document Registration [id number] 01/06/2013 00:00:00 Document Registration [id number] 01/06/2013 00:00:00 Document Registration [id number] 01/06/2013 00:00:00 Document Registration [id number] 01/06/2013 00:00:00 Document Registration [id number] 01/06/2013 00:00:00 Document Registration [id number] 01/06/2013 00:00:00 Document Registration [id number] 11/14/2018 08:12:14 9 23:59:59 DIS Outpatient NABBOUT, SHANDRA H [facility] RAD [id number] 05/29/2018 12:33:00 9 23:59:59 DIS Outpatient NABBOUT, SHANDRA H [facility] RAD [id number] 03/22/2018 12:48:05 9 23:59:59 DIS Outpatient SHANTI GUNN [facility] RAD [id number] 01/11/2018 09:57:05 8 23:59:59 DIS Outpatient Thelma De La Fuente [facility] [id number] 07/25/2017 13:14:00 8 23:59:59 CLS Emergency [facility] ED er visit [id number] 07/06/2017 10:39:26 8 23:59:59 DIS Outpatient Thelma De La Fuente [facility] [id number] 05/31/2017 07:47:42 8 23:59:59 DIS Outpatient SHANDRA BUTTS [facility] RAD f/u ca colon [id number] 01/05/2017 15:35:03 7 23:59:59 DIS Outpatient Johana Thacker [facility] LAB [id number] 01/05/2017 14:12:59 7 23:59:59 DIS Outpatient Thelma De La Fuente [facility] [id number] 12/21/2016 10:36:26 7 23:59:59 DIS Outpatient SHANTI GUNN [facility] RAD screening [id number] 11/30/2016 11:45:41 7 23:59:59 DIS Outpatient DHAVAL, LEO L [facility] LAB [id number] 06/21/2016 15:32:38 7 23:59:59 CLS Preadmit ADAM DALE [facility] Surgery colonoscopy/ removal of portacath [id number] 11/21/2018 12:52:15 Document Registration [id number] 06/08/2018 11:46:11 Document Registration [id number] 05/03/2018 08:00:12 ADAM MCGHEE [facility] MS ops [id number] 03/30/2018 10:15:00 03/30/2018 10:15 :00 DIS Outpatient ADAM DALE MD RAD [id number] 05/26/2017 13:15:00 05/26/2017 13:15 :00 DIS Outpatient SHANDRA BUTTS [facility] LAB [id number] 01/15/2019 09:12:00 16:45:00 DIS Outpatient JUAN DPTACO Delgado Q [facility] SDC HALLUX VALGUS, HAMMERTO E LEFT FOOT [id number] 12/27/2018 15:39:00 16:05:00 DIS Outpatient JUAN DPMTACO Q [facility] PREOP HALLUX VALGUS, HAMMERTO E LEFT FOOT [id number] 09/05/2012 18:24:00 09/22/19 13 15:20:00 DIS Inpatient Benjamín VASQUEZ, Shandra Patiño [facility] [place] F7N [id number] 08/24/2012 11:16:00 08/27/19 13 12:30:00 DIS Inpatient Waqas Lopez MD [facility] [place] F8SE [id number] 09/07/2018 13:04:00 23:59:00 DIS Smith [facility] Rad Ther F/U [id number] 07/28/2018 14:34:00 23:59:00 DIS Smith David [facility] Rad Ther THYROID CA [id number] 09/07/2018 10:07:00 23:59:00 DIS Outpatient [facility] Nuc Med Malignant neoplasm o f thyroid gland [id number] 08/30/2018 08:55:00 23:59:00 DIS Outpatient Lew David [facility] Laboratory Thyrogllobulin level, thyroglobulin antibody [id number] 07/28/2018 16:02:00 23:59:00 DIS Outpatient [facility] Laboratory follow up [id number] 01/26/2019 15:50:02 ACT Unknown Adam Dale MD [id number] 08/30/2018 08:55:00 Document Registration [id number] 07/28/2018 16:02:00 Document Registration [id number] 11/25/2018 12:56:55 ACT Document Registration [id number] 03/30/2018 10:15:00 Document Registration
== END 2019-01-15 16:45 | disposition home or self-care (01) ==
LOC: SDC 09:12
PROVIDERS: ATTEND Podiatrist Foot & Ankle Surgery
DX: M20.12 Hallux valgus (acquired), left foot (principal); M20.42 Other hammer toe(s) (acquired), left foot; M89.372 Hypertrophy of bone, left ankle and foot; S93.145A Subluxation of metatarsophalangeal joint of left lesser toe(s), initial encounter; M17.10 Unilateral primary osteoarthritis, unspecified knee; M19.019 Primary osteoarthritis, unspecified shoulder; G62.9 Polyneuropathy, unspecified; E83.42 Hypomagnesemia; E78.5 Hyperlipidemia, unspecified; I10 Essential (primary) hypertension; Z91.040 Latex allergy status; Z85.850 Personal history of malignant neoplasm of thyroid; Z90.89 Acquired absence of other organs; Z90.10 Acquired absence of unspecified breast and nipple; Z79.899 Other long term (current) drug therapy; Z85.3 Personal history of malignant neoplasm of breast; Z85.038 Personal history of other malignant neoplasm of large intestine; Z82.49 Family history of ischemic heart disease and other diseases of the circulatory system